=== PATIENT | female | born 1985 | race Caucasian/White ===

== ENCOUNTER 2023-05-18 16:57 | Emergency (ER) | payer OTHER, SELFPAY ==
[2023-05-18 17:04] VITALS: BP 142/90; PULSE 88; RESP 16; TEMP 37.3; O2SAT 96; BMI 52.1
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
[2023-05-18] MEDS: SILVER SULFADIAZINE 1% CREAM 25 GM TUBE 1 APPLIC TOPICAL (17:19)
== END 2023-05-18 17:48 | disposition home or self-care (01) ==
LOC: ER 17:32
PROVIDERS: Emergency Provider Emergency Medicine
DX: T23.152A Burn of first degree of left palm, initial encounter (principal); X12.XXXA Contact with other hot fluids, initial encounter
CPT/HCPCS: 99283

== ENCOUNTER 2023-12-02 10:24 | Outpatient (OUT) | payer OTHER, SELFPAY ==
[2023-12-02 10:52] LABS: Basophils Percent Auto 0.4 % (0.2-2.0); Eosinophils Absolute Auto 0.1 10^3/uL (0.0-0.7); Eosinophils Percent Auto 0.9 % (0.9-7.0); Hematocrit 38.6 % (36.0-48.0); Immature Granulocytes Abs Auto 0.03 10^3/uL (0.00-0.03); Immature Granulocytes Pct Auto 0.4 % (0.0-0.5); Lymphocytes Absolute Auto 2.2 10^3/uL (1.2-3.8); Lymphocytes Percent Auto 26.7 % (20.5-60.0); Mean Corpuscular HGB Conc 31.1 g/dL (29.9-35.2); Mean Corpuscular Hemoglobin 25.5 pg (26.7-34.0); Mean Platelet Volume 9.1 fL (9.5-13.5); Monocytes Absolute Auto 0.4 10^3/uL (0.3-0.8); Monocytes Percent Auto 4.6 % (1.7-12.0); Neutrophils Absolute Auto 5.5 10^3/uL (1.4-6.5); Platelet Count 336 10^3/uL (150-450); Red Blood Count 4.71 10^6/uL (4.20-5.40); Red Cell Distribution Width 14.5 % (11.0-15.0); White Blood Count 8.2 10^3/uL (4.0-11.0)
[2023-12-02 11:07] LABS: Estimated Average Glucose 108 mg/dL; Glycohemoglobin A1C 5.4 % (4.5-6.2)
[2023-12-02 11:07] LABS: Bilirubin Urine NEGATIVE (NEGATIVE); Blood Urine NEGATIVE (NEGATIVE); Clarity Urine CLEAR (CLEAR); Color Urine YELLOW (YELLOW); Glucose Urine UA NEGATIVE (NEGATIVE); Ketones Urine NEGATIVE (NEGATIVE); Leukocyte Esterase Urine SMALL (NEGATIVE); Nitrite Urine NEGATIVE (NEGATIVE); Protein Urine NEGATIVE (NEG/TRACE); Specific Gravity Urine 1.025 (1.005-1.025); Urobilinogen Urine 0.2 EU/dL (0.2-1.0)
[2023-12-02 11:29] LABS: Creatinine Urine Random 179.41 mg/dL (20.00-300.00); Microalbum Creatinine Ratio Ur 8.9 mg/g (0.0-29.9); Microalbumin Urine Random 1.6 mg/dL (<=30.0)
[2023-12-02 11:37] LABS: Alanine Aminotransferase 24 U/L (14-59); Albumin Globulin Ratio 0.9; Albumin Level 3.7 g/dL (3.4-5.0); Alkaline Phosphatase 74 U/L (46-116); Anion Gap 12.2; Aspartate Amino Transferase 15 U/L (15-37); BUN Creatinine Ratio 21.4; Bilirubin Total 0.4 mg/dL (0.2-1.0); Calcium 9.1 mg/dL (8.5-10.1); Carbon Dioxide 27.8 mmol/L (21.0-32.0); Chloride 103 mmol/L (98-107); Chol HDL Ratio 4.4; Cholesterol 209 mg/dL (<=200); Estimated GFR (African America >60 (>=60); Estimated GFR (Non-African Ame >60 (>=60); Globulin 4.1 g/dL; Glucose 133 mg/dL (74-106); HDL Cholesterol 48 mg/dL (40-60); Sodium 139 mmol/L (136-145); TSH W/ REFLEX FT4 3.775 uIU/mL (0.358-3.740); Total Protein 7.8 g/dL (6.4-8.2); Triglycerides 127 mg/dL (<=150); VLDL CHOLESTEROL 25.4 mg/dL
== END 2023-12-02 10:25 | disposition home or self-care (01) ==
PROVIDERS: PCP Nurse Practitioner Family; Visit Provider Nurse Practitioner Family
DX: E07.9 Disorder of thyroid, unspecified (principal); E11.9 Type 2 diabetes mellitus without complications; I10 Essential (primary) hypertension; E78.5 Hyperlipidemia, unspecified; R30.9 Painful micturition, unspecified
CPT/HCPCS: 36415; 80053; 80061; 81003; 82043; 82570; 83036; 84439; 84443; 85025

== ENCOUNTER 2023-12-27 13:47 | Outpatient (OUT) | payer OTHER, SELFPAY ==
--- OUTSIDE RECORDS SUMMARY | 2023-12-27 14:10 | XMS_ITS | CCD ---
Author Organization [facility] Care Team Providers Care Angiographer Name Role Phone Ingrid Culver Primary Care Provider [phone] INGRID CULVER Primary Care Unavailable KOLBY RAYMUNDO Attending Unavailable RHONDA, KOLBY Admitting Unavailable RHONDA, KOLBY Admitting Unavailable INGRID CULVER Primary Care Unavailable KOLBY RAYMUNDO Attending Unavailable RHONDA, KOLBY Admitting Unavailable KOLBY RAYMUNDO Attending Unavailable INGRID CULVER Primary Care Unavailable GEOVANNI CUEVAS Admitting Unavailable VIANCA BLANCHARD Consulting Unavailable DR DIONICIO BARBOUR Primary Care Unavailable GEOVANNI CUEVAS Attending Unavailable ANDREINA DHILLON Consulting Unavailable GEOVANNI CUEVAS Consulting Unavailable LUISA RANGEL Consulting Unavailable Palomo AMOS-Ingrid DIAS Primary Care Provider LAURENT BENITO Attending Unavailable LAURENT BENITO Attending Unavailable Claudio AMOS-CHRISTINE, Lizbeth Primary Care Provid er KATHERINE DOSS Attending Unavailable INGRID CULVER Referring LIZBETH Lopez Primary Care Unavailable Allergies Allergy Classification Reported Allergen(s) Allergy Type Date of Onset Reaction(s) Facility (6 sources) Loratadine; Translations: [LORATADINE] Drug Allergy 07-20-20 17 Palpitations [place], [place] (6 sources) methylPREDNISolone; Translations: [METHYLPREDNISOLONE] Drug Allergy 04-09-20 19 Hives [place], [place] (1 source) Loratadine Drug Allergy 03-20-20 17 [facility] (1 source) metFORMIN Drug Allergy 02-14-20 23 [facility] (1 source) methylPREDNISolone Drug Allergy [facility] (4 sources) oxyCODONE; Translations: [OXYCODONE] Drug Allergy 07-22-20 [facility] Medications Current Medications Medication Drug Class(es) Dates Sig (Normalized) Sig (Original) [id number] 200 actuat albuterol 0.09 mg/actuat metered dose inhaler (7 sources) beta2-Adrenergic Agonist Start: 11-11-2022 End: 10-13-2023 take 2 puff(s) by mouth every four to six hours as needed VENTOLIN HFA 90 mcg/actuation inhaler Indications: Moderate persistent asthma, unspecified whether complicated INHALE 2 PUFFS BY MOUTH EVERY 4-6 HOURS NEEDED 18 g 10 10/13/2023 Active take 2 puff(s) by in halation every six hours as needed for wheezing albuterol sulfate HFA (VENTOLIN HFA) 108 (90 Base) MCG/ACT inhaler Inhale 2 puffs into the lungs every 6 hours as needed for Wheezing 0 Active ARIPiprazole 10 mg oral tablet (3 sources) Atypical Antipsychotic Start: 05-19-2022 take 1 tablet by mouth in the morning ARIPiprazole (ABILIFY) 10 mg tablet Take 1 tablet (10 mg total) by mouth in the morning. 0 05/19/2022 Active atorvastatin 20 mg oral tablet (6 sources) HMG-CoA Reductase Inhibitor Start: 12-09-2022 atorvastatin (LIPITOR) 20 mg tablet take 1 tablet by mouth once carlos y atorvastatin (LIPITOR) 20 MG tablet Take 20 mg by mouth daily 0 Active 60 actuat budesonide 0.16 mg/actuat / formoterol fumarate 0.0045 mg/actuat metered dose inhaler (4 sources) Corticosteroid, beta2-Adrenergic Agonist Start: 12-10-2022 End: 11-11-2023 take 2 puff(s) by mouth twice daily SYMBICORT 160-4.5 mcg/actuation inhaler Indications: Moderate persistent asthma, unspecified whether complicated INHALE TWO (2) PUFFS BY MOUTH TWICE DAILY 10.2 g 10 11/11/2023 Active Budesonide-Formoter ol Fumarate (SYMBICORT IN) (3 sources) Budesonide-Formo te rol Fumarate (SYMBICORT IN) Inhale into the lungs as needed 0 Active busPIRone hydrochloride 15 mg oral tablet (6 sources) Start: 07-21-2021 busPIRone (BUSPAR) 15 mg tablet 4 (four) times a day. 0 07/21/2021 Active take 1 tablet by mouth twice celeste ly busPIRone (BUSPAR) 10 MG tablet Take 10 mg by mouth 2 times daily 0 Active calcium chloride 0.0014 meq/ ml / potassium chloride 0.004 meq/ml / sodium chloride 0.103 meq/ml / sodium lactate 0.028 meq/ml injectable solution (1 source) Start: 12-23-2020 lactated ringe rs infusion Start: 12-23-2020 lactated ringe rs infusion cephalexin 500 mg oral capsule (1 source) Cephalosporin Antibacterial Start: 12-22-2020 End: 12-27-2020 take 1 capsule by mouth three times daily cephALEXin (KEFLEX) 500 MG capsule Take 1 capsule by mouth 3 times daily for 5 days 15 capsule 0 12/22/2020 12/27/2020 Active cetirizine hydrochloride 10 mg oral tablet (6 sources) Histamine-1 Receptor Antagonist take 1 tablet by mouth once daily cetirizine (ZyrTEC) 10 mg tablet 1 tablet Orally Once a day for 30 day(s) 0 Active cholecalciferol 0.05 mg oral capsule (3 sources) Vitamin D Start: 12-03-2021 take 1 capsule by mouth in the morning VITAMIN D3 50 mcg (2,000 unit) capsule Take 1 capsule (2,000 Units total) by mouth in the morning. 0 12/03/2021 Active famotidine 20 mg oral tablet (3 sources) Histamine-2 Receptor Antagonist Start: 12-09-2022 famotidine (PEPCID) 20 mg tablet gabapentin 300 mg oral capsule (6 sources) Anti-epileptic Agent gabapentin (NEURONTI N) 300 mg capsule 1 capsule (300 mg total). 0 Active hydroCHLOROthiazide 12.5 mg oral capsule (6 sources) Thiazide Diuretic take 1 capsule by mouth once daily in the morning hydroCHLOROthiazide (MICROZIDE) 12.5 mg capsule 1 capsule in the morning Orally Once a day for 30 day(s) 0 Active hydrOXYzine pamoate 25 mg oral capsule (3 sources) Antihistamine Start: 07-21-2021 take 1 capsule by mouth three times daily as needed hydrOXYzine (VISTARIL) 25 mg capsule Take 1 capsule (25 mg total) by mouth 3 (three) times a day as needed. 0 07/21/2021 Active isopropyl alcohol 0.7 ml/ml medicated pad (3 sources) Start: 05-27-2020 EASY TOUCH ALCOHOL PREP PADS pads, medicated levothyroxine sodium 0.05 mg oral tablet (6 sources) l-Thyroxine take 1 tablet by mouth once daily in the morning levothyroxine (SYNTHROID, LEVOTHROID) 50 MCG tablet 1 tablet on an empty stomach in the morning Orally Once a day 0 Active 10 ml lidocaine hydrochloride 10 mg/ml injection (1 source) Antiarrhythmic, Amide Local Anesthetic Start: 12-23-2020 End: 12-23-2020 lidocaine PF 1 % injection 1 mL lisinopril 2.5 mg oral tablet (6 sources) Angiotensin Converting Enzyme Inhibitor take 1 tablet by mouth once daily lisinopriL (PRINIVIL,ZESTRIL) 2.5 mg tablet 1 tablet Orally Once a day for 30 day(s) 0 Active loperamide hydrochloride 2 mg oral capsule (3 sources) Opioid Agonist loperamide (IMOD IUM) 2 MG capsule Take 2 mg by mouth as needed for Diarrhea 0 Active metFORMIN hydrochloride 1000 mg oral tablet (1 source) Biguanide take 2 tablets by mouth once at mealtime metFORMIN (GLUCOPHAGE) 1000 MG tablet Indications: for type 2 diabetes per patient Take 1,000 mg by mouth 2 times daily (with meals) Indications: for type 2 diabetes per patient 0 Active 24 hr mirabegron 50 mg extended release oral tablet (3 sources) beta3-Adrenergic Agonist Start: 11-13-2021 take 1 tablet by mouth every twenty-four hours in the morning MYRBETRIQ 50 mg tablet extended release 24 hr Take 1 tablet (50 mg total) by mouth in the morning. 0 11/13/2021 Active montelukast 10 mg oral tablet (3 sources) Leukotriene Receptor Antagonist take 1 tablet by mouth once daily montelukast (SINGULAIR) 10 mg tablet Take 1 tablet (10 mg total) by mouth nightly. 0 Active omeprazole 40 mg delayed release oral capsule (6 sources) Proton Pump Inhibitor Start: 11-23-2022 take 1 capsule by mouth once daily omeprazole (PriLOSEC) 40 mg capsule Take 1 capsule (40 mg total) by mouth nightly. 0 11/23/2022 Active take 1 capsule by mouth once celeste ly omeprazole (PRILOSEC) 10 MG delayed release capsule Take 10 mg by mouth daily 0 Active 24 hr oxybutynin chloride 10 mg extended release oral tablet (3 sources) Cholinergic Muscarinic Antagonist take 1 tablet by mouth twice daily oxybutynin (DITROPAN-XL) 10 MG extended release tablet Take 10 mg by mouth 2 times daily 0 Active sertraline 100 mg oral tablet (6 sources) Serotonin Reuptake Inhibitor Start: take 1 tablet by mouth in the morning sertraline (ZOLOFT) 100 mg tablet Take 1 tablet (100 mg total) by mouth in the morning. 0 07/21/2021 Active take 1 tablet by mouth once carlos y sertraline (ZOLOFT) 50 MG tablet Take 50 mg by mouth daily 0 Active SITagliptin 100 mg oral tablet (1 source) Dipeptidyl Peptidase 4 Inhibitor Start: 09-21-2023 take 1 tablet by mouth in the morning JANUVIA 100 mg tablet Take 1 tablet (100 mg total) by mouth in the morning. 0 09/21/2023 Active traMADol hydrochloride 50 mg oral tablet (1 source) Opioid Agonist Start: 12-22-2020 End: 01-01-2021 take 1 tablet by mouth every six hours as needed for pain traMADol (ULTRAM) 50 MG tablet Indications: Post-op pain Take 1 tablet by mouth every 6 hours as needed for Pain for up to 10 days. 10 tablet 0 12/22/2020 01/01/2021 Active traZODone hydrochloride 50 mg oral tablet (1 source) Serotonin Reuptake Inhibitor take 1 tablet by mouth once daily traZODone (DESYREL) 50 mg tablet Take 1 tablet (50 mg total) by mouth nightly. 0 Active Completed/Discontinued Medications Medication Drug Class(es) Dates Sig (Normalized) Sig (Original) meloxicam (3 sources) Nonsteroidal Anti-inflammatory Drug End: 12-22-2020 Meloxicam (MOBIC PO) Take by mouth daily Patient does not know dose. 0 12/22/2020 Discontinued (LIST CLEANUP) Meloxicam (MOBIC PO) Take by mouth daily Patient does not know dose. 0 Active QUEtiapine 100 mg oral tablet (3 sources) Atypical Antipsychotic Start: 06-02-2020 End: 12-12-2023 take 1 tablet by mouth once daily, then take 0.5 tablet by mouth once daily QUEtiapine (SEROquel) 100 mg tablet nightly. Takes 1 and a 1/2 tablets by mouth Daily 0 06/02/2020 12/12/2023 Discontinued Problems Active Problems Problem Classification Problem Date Documented Date Episodic/Chronic Abdominal pain (4 sources) Unspecified abdominal pain; Translations: [UNSPECIFIED ABDOMINAL PAIN] Onset: 02-13-2023 Episodic Anxiety disorders (3 sources) Generalized anxiety disorder; Translations: [Generalized anxiety disorder] Onset: 07-29-2021 07-29-2021 Chronic Asthma (2 sources) Moderate persistent asthma; Translations: [Moderate persistent asthma, uncomplicated] 10-10-2023 Chronic Chronic ulcer of skin (3 sources) Non-pressure chronic ulcer of right heel and midfoot limited to breakdown of skin; Translations: [Ulcer of heel and midfoot] Onset: 07-29-2021 07-29-2021 Chronic Developmental disorders (3 sources) Developmental academic disorder; Translations: [Developmental disorder of scholastic skills, unspecified] Onset: 07-29-2021 07-29-2021 Chronic Diabetes mellitus without complication (3 sources) Type 2 diabetes mellitus; Translations: [Type 2 diabetes mellitus without complications] Onset: 05-03-2019 05-03-2019 Chronic E Codes: Fall (1 source) Unspecified fall, initial encounter; Translations: [UNSPECIFIED FALL INITIAL ENCOUNTER] Onset: 02-15-2023 Episodic Essential hypertension (3 sources) Hypertensive disorder; Translations: [Essential (primary) hypertension] Onset: 05-03-2019 05-03-2019 Chronic Menopausal disorders (1 source) Hormone replacement therapy; Translations: [HORMONE REPLACEMENT THERAPY] Onset: 02-15-2023 Episodic Miscellaneous mental health disorders (3 sources) Dissociative convulsions; Translations: [Conversion disorder with seizures or convulsions] Onset: 02-10-2022 02-10-2022 Chronic Mood disorders (3 sources) Recurrent major depressive episodes, moderate ; Translations: [Major depressive disorder, recurrent, moderate] Onset: 07-29-2021 07-29-2021 Chronic Other aftercare (1 source) Other terminal makeup operator (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; Translations: [OTH SHIFT COORDINATOR CURRENT DRUG THERAPY] Onset: 02-15-2023 Episodic Other lower respiratory disease (1 source) Pleurodynia; Translations: [PLEURODYNIA] Onset: 02-15-2023 Episodic Other nervous system disorders (1 source) Postoperative pain ; Translations: [Post-op pain] Episodic Other nutritional; endocrine; and metabolic disorders (3 sources) Severe obesity; Translations: [Morbid (severe) obesity due to excess calories] Onset: 05-03-2019 05-03-2019 Chronic Residual codes; unclassified (1 source) Obstructive sleep apnea syndrome; Translations: [Obstructive sleep apnea (adult) (pediatric)] 12-12-2023 Chronic Residual codes; unclassified (1 source) Sleep apnea Onset: 12-12-2023 Chronic Sprains and strains (1 source) Strain of muscle, fascia and tendon of lower back, initial encounter; Translations: [STRAIN MUSC FASC TENDON LW BACK INT] Onset: 02-15-2023 Episodic Past or Other Problems Problem Classification Problem Date Documented Da te Episodic/Chronic Mood disorders (3 sources) Mood disorders Onset: 09-11-2021 09-11-2021 Other lower respiratory disease (3 sources) Dyspnea; Translations: [Shortness of breath] Onset: 05-03-2019 05-03-2019 Episodic Unclassified (3 sources) Onset: 02-01-2023 02-01-2023 Results Test Name Value Interpretation Reference Range Facility CT ABD/PELVIS WO CONon 02-13 CT ABD/PELVIS WO CON CLINICAL HISTORY: M id to lower back pain, radiating into the right hip. Patient is status post fall 5 days ago. Posterior right-sided rib pain. EXAMINATION: Unenhanced CT scan of the abdomen and pelvis: 02/13/2023. COMPARISON: None. TECHNIQUE: 3 mm axial images from lung bases through ischial tuberosities without intravenous or oral contrast were obtained. Sagittal and coronal reconstructions were performed. CT dose reduction technique was used, including Automated Exposure Control. FINDINGS: The visualized lung bases seem normal. The heart size seems normal. CT ABDOMEN: For a noncontrast study the stomach seems slightly distended. The liver and spleen appear normal. The patient is status post cholecystectomy. Pancreas, adrenal glands, kidneys appear normal. There is no hydronephrosis or nephrolithiasis. The abdominal aorta has normal caliber. There is no retroperitoneal or mesenteric adenopathy. The bowel loops are of normal caliber with a normal-appearing appendix. CT PELVIS: There is a powerpack overlying the left lower abdomen at the level of L5-S1 with electrode extending to the right greater sciatic notch. There is an appropriately positioned intrauterine device in place. Uterus, ovaries, bladder appear normal. There is no pelvic adenopathy. There is no ureterolithiasis. Images on bone windows demonstrate there are no fractures of the hip joints or the visualized pelvic bones. The visualized lower thoracic and lumbar segments seen intact. No definite fractures of the visualized right or the left lower ribs are seen. IMPRESSION: 1. The study is slightly limited secondary to lack of intravenous contrast. 2. No definite injury to intra-abdominal or pelvic organs. 3. Prior cholecystectomy. 4. No nephro or ureterolithiasis. 5. Normal appendix. 6. No significant degenerative changes of the thoracolumbar spine which is visualized or fractures. The visualized lower ribs appear intact as well. Electronically authenticated by: ANDREINA DHILLON Date: 2023-02-13 21:36 Normal [facility] CT LSPINE WO CONon [address] [facility] CON CT LUMBAR SPINE WITH OUT CONTRAST, 02/13/2023 6:09 PM EDT INDICATION: Pain COMPARISON: None. TECHNIQUE: Thin-section axial CT images of the entire lumbar spine were acquired withoutcontrast. Supplemental 2D reformatted images were generated and reviewed as needed. Dose reduction techniques were achieved by using automated exposure control and/or adjustment of mA and/or kV according to patient size and/or use of iterative reconstruction technique. FINDINGS: PARASPINAL: Normal with no visible mass. BONES: No fracture, pars defect, or osseous lesion. OTHER: None. DISC LEVELS: T12-L1: No significant disc/facet abnormality, spinal stenosis, or foraminal stenosis. L1-L2: No significant disc/facet abnormality, spinal stenosis, or foraminal stenosis. L2-L3: No significant disc/facet abnormality, spinal stenosis, or foraminal stenosis. L3-L4: There is mild circumferential bulging of the L3-L4 disc. The central canal and neural foramina are satisfactorily maintained. Early facet arthropathy is seen bilaterally. L4-L5: There is mild circumferential bulging of the L4-L5 disc. The central canal and neural foramina are satisfactorily maintained. Early facet arthropathy is seen bilaterally. L5-S1: Posterior contour of the L5-S1 disc is normal. The central canal and neural foramina are satisfactorily maintained. Early facet arthropathy is seen bilaterally. IMPRESSION: Mild lower lumbar spondylosis. No evidence for acute fracture or traumatic malalignment. Electronically authenticated by: Kalli RANGEL Date: 2023-02-13 20:09 Normal [facility] XR RIBS RT PA Marco Antonio 3 XR RIBS RT PA CH EXAM: XR RIBS RT PA CH HISTORY: Pain COMPARISON: Chest x-ray 02/18/2020 TECHNIQUE: 5 view study FINDINGS: Right ribs show normal architecture. The right lung is well expanded. No pneumothorax. IMPRESSION: No evidence for acute right rib fracture. Electronically authenticated by: Kalli RANGEL Date: 2023-02-13 20:26 Normal [facility] [id number] 01-05-2021 SARS-CoV-2,Rapid Not Detected Normal [facility] Comment on above: Result Comment: Rapid NAAT: The specimen is NEGATIVE for SARS-CoV-2, the novel coronavirus associated with COVID-19. The ID NOW COVID-19 assay is designed to detect the virus that causes COVID-19 in patients with signs and symptoms of infection who are suspected of COVID-19. An individual without symptoms of COVID-19 and who is not shedding SARS-CoV-2 virus would expect to have a negative (not detected) result in this assay. Negative results should be treated as presumptive and, if inconsistent with clinical signs and symptoms or necessary for patient management, should be tested with an alternative molecular assay. Negative results do not preclude SARS-CoV-2 infection and should not be used as the sole basis for patient management decisions. Fact sheet for Healthcare Providers: https://www.fda.gov/media/992379/download Fact sheet for Patients: https://www.fda.gov/media/659243/download Methodology: Isothermal Nucleic Acid Amplification Performed By: #### C OVRB #### [facility] [place] [address] Piano Mover: Hussain Saldivar MD FLUORO FOR SURGICAL PROCEDUR ESon 12-22-2020 FLUORO FOR SURGICAL PROCEDURES Radiology exam is complete. No Radiologist dictation. Please follow up with ordering provider. Final result Normal [facility] Radiology exam is complete. No Radiologist dictation. Please follow up with ordering provider. [facility] Phone: HCG Screen, Bloodon 12-23-19 21 HCG Qn Negative Normal NEG [facility] Comment on above: Result Comment: Spec imens with hCG levels near the threshold of the test (25 mIU/mL) may give a negative or indeterminate result. In such cases, another test should be performed with a new specimen in 48-72 hours. If early is suspected clinically in this setting, correlation with quantitative serum b-hCG level is suggested. Performed By: #### H CG #### [facility] [address] [place] [address] Piano Mover: Darian Knutson MD HCG, SERUM, QUALITATIVEon hCG Qual Negative NEGATIVE [employer] Phone: Comment on above: Specimens with hCG l evels near the threshold of the test (25 mIU/mL) may give a negative or indeterminate result. In such cases, another test should be performed with a new specimen in 48-72 hours. If early is suspected clinically in this setting, correlation with quantitative serum b-hCG level is suggested. POC Glucose Fingerstickon Glucose [Mass/Vol] 89 mg/dL 65 - 105 mg/dL [facility] Phone: Glucose [Mass/Vol] 99 mg/dL 65 - 105 mg/dL [facility] Phone: Operative Reporton Operative Report MR#: [id number] S [facility] Pt. Name: Angela Hendrickson Room #: 0C Discharge Date: Birthdate: 1985 OPERATIVE REPORT DATE OF SURGERY: 10/09/2020 SURGEON: Tee Shahid M.D. PREOPERATIVE DIAGNOSIS: Triangular fibrocartilage complex tear, right wrist. POSTOPERATIVE DIAGNOSIS: Triangular fibrocartilage complex tear, right wrist. PROCEDURE: Arthroscopic examination and debridement of triangular fibrocartilage complex on the right wrist. PRODUCTION STAGE MANAGER: Oracio Ibanez M.D. ANESTHESIA: Regional with an axillary block. INDICATION FOR SURGERY: The patient is a 34-year-old female whom we saw in our [facility] with complaints of persisting ulnar sided wrist pain. This has been a problem despite nonoperative means of treatment. She is felt to be a candidate for surgical management at this point in time. She was brought to the operating room today for that purpose. The risks and benefits are explained prior to surgery and with good understanding, it is agreed to proceed. NARRATION: The patient was brought to the operating room and placed on the table in the supine position. An axillary block had been administered per the Anesthesia Service in the holding area. A tourniquet was placed around the proximal right arm. She was given preoperative antibiotics and the right upper extremity was prepped and draped out in a sterile fashion. To begin the procedure, after a standard time-out, the arm was exsanguinated with an Esmarch bandage and the tourniquet was inflated to 250 mmHg. The arm was suspended with finger trap traction on the long and ring fingers. About 10 pounds of traction was placed across the wrist joint. With a 25-gauge needle, we injected the radiocarpal joint with about 2 mL of normal saline solution. Once that was done, standard 3-4 and then later 4-5 portals were created. First, I just did a standard examination beginning over the radial styloid that looks normal. The scaphoid fossa looks fine. There was just a little bit of fibrillated tissue here and there, but nothing that looked terrible. The scapholunate ligament has a nice concavity and looks good. The lunate fossa was good. 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 A full radius shaver was inserted and I just debrided a little bit of the edge. I then took a biter and trimmed off the very thin portion in the center and with the shaver again debrided the edges until they were stable and smooth. I was able to get my probe in along the periphery. There was no peripheral tear. There was no instability at all of the cartilage and ligaments. Seeing that after we debrided that area, I went up into the midcarpal joint. Standard radial and ulnar midcarpal portals were created. We looked at the scapholunate ligament first with traction on the thumb. The ligament was stable and there was no motion at all. A small probe was inserted and the joint was perfectly stable. We then went over to the lunotriquetral joint and that also was stable. Seeing that, the arthroscopic equipment was removed. The portals were closed with interrupted 5-0 Novafil. A sterile dressing of Xeroform gauze, 4x4 fluffs, Kerlix, and an Renny bandage was applied. The arm had been removed from traction. The drapes were removed and the tourniquet was released. Her arm was placed into a sling because of the regional block. She was brought to the recovery area in stable condition, having tolerated the procedure well. Plan going forward. I believe that given her young age and the appearance of the TFCC with the ulnar head being visible, she was probably going to be a candidate for an ulnar shortening osteotomy. We will have to see how much relief she gets from the simple debridement. We will talk to her about options when we see her in the clinic for followup. Electronically Signed by: Tee Shahid M.D. 10/13/2020 10:06 A Tee Shahid M.D. Date Dict: 10/09/2020/10:44 A/Tee Shahid M.D. Date Trans: 10/09/2020 11:19 A/porter [id number] cc: Ingrid Culver C.N.P. [address] [facility] [address] Normal [facility] POC GLUCOSE LABon 10-09-2020 Glucose [Mass/Vol] 100 mg/dL Normal 70-[address] [facility] Comment on above: Performed By: #### [id number] #### [facility] [address] [place] [address], [facility] Glucose [Mass/Vol] 111 mg/dL High 70-[address] [facility] Comment on above: Performed By: #### [id number] #### [facility] [address] [facility]. 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 find the positives in a stressful situation rather than focusing on the negatives. ? Exercise. Physical exercise can release both physical and emotional tension. The patterson is to find a form of exercise that you enjoy and do it regularly. ? Relaxation techniques. These relax the body and mind. The patterson is to find one or more that you enjoy and use the technique(s) regularly. Examples include: ? Meditation, deep breathing, or progressive relaxation techniques. ? Yoga or rhys chi. ? Biofeedback, mindfulness techniques, or journaling. ? Listening to music, being out in nature, or participating in other hobbies. ? Practicing a healthy lifestyle. Eat a balanced diet, drink plenty of water, limit or avoid caffeine, and get plenty of sleep. ? Having a strong support network. Spend time with family, friends, or other people you enjoy being around. Express your feelings and talk things over with someone you trust. Counseling or talk therapy with a mental health professional may be helpful if you are having trouble managing stress on your own. Follow these instructions at home: Lifestyle ? Avoid drugs. ? Do not use any products that contain nicotine or tobacco, such as cigarettes and e-cigarettes. If you need help quitting, ask your health care provider. ? Limit alcohol intake to no more than 1 drink a day for non women and 2 drinks a day for men. One drink equals 12 oz of beer, 5 oz of wine, or 1? oz of hard liquor. ? Do not use alcohol or drugs to relax. ? Eat a balanced diet that includes fresh fruits and vegetables, whole grains, lean meats, fish, eggs, and beans, and low-fat dairy. Avoid processed foods and foods high in added fat, sugar, and salt. ? Exercise at least 30 minutes on 5 or more days each week. ? Get 7?8 hours of sleep each night. General instructions ? Practice stress management techniques as discussed with your health care provider. ? Drink enough fluid to keep your urine clear or pale yellow. ? Take haan-vgx-zhhcvgq and prescription medicines only as told by your health care provider. ? Keep all follow-up visits as told by your health care provider. This is important. Contact a health care provider if: ? Your symptoms get worse. ? You have new symptoms. ? You feel overwhelmed by your problems and can no longer manage them on your own. Get help right away if: ? You have thoughts of hurting yourself or others. If you ever feel like you may hurt yourself or others, or have thoughts about taking your own life, get help right away. You can go to your nearest emergency department or call: ? Your local emergency services (911 in the [place] ? A suicide crisis helpline, such as the National Suicide Prevention Lifeline at . This is open 24 hours a day. Summary ? Stress is a normal reaction to life events. It can cause problems if it happens too often or for too long. ? Practicing stress management techniques is the best way to treat stress. ? Counseling or talk therapy with a mental health professional may be helpful if you are having trouble managing stress on your own. This information is not intended to replace advice given to you by your health care provider. Make sure you discuss any questions you have with your health care provider. Document Released: 03/15/2002 Document Revised: 09/01/2018 Document Reviewed: 11/09/2017 [employer] Patient Education ? 2020 [employer]. Suicidal Feelings: How to Help Yourself Suicide is when you end your own life. There are many things you can do to help yourself feel better when struggling with these feelings. Many services and people are available to support you and others who struggle with similar feelings. If you ever feel like you may hurt yourself or others, or have thoughts about taking your own life, get help right away. To get help: ? Call your local emergency services (911 in the [place] ? The [facility] and human services helpline (211 in the [place] ? Go to your nearest emergency department. ? Call a suicide hotline to speak with a trained counselor. The following suicide hotlines are available in the [place]: ? 8-986-430-TALK ( ). ? 9-538-ZFILPYT ( ). ? . This is a hotline for Monegasque speakers. ? . This is a hotline for TTY users. ? 9-683-2-U-FRED ( ). This is a hotline for lesbian, clayton, bisexual, transgender, or questioning youth. ? For a list of hotlines in [place], visit www.suicide.org/hotline s/international/[place]- suicide-hotlines.html ? Contact a crisis center or a local suicide prevention center. To find a crisis center or suicide prevention center: ? Call your local hospital, clinic, community service organization, mental health center, social service provider, or health department. Ask for help with connecting to a crisis center. ? For a list of crisis centers in the [place], visit: suicidepreventionlifeli Airpush.org ? For a list of crisis centers in [place], visit: suicideprevention.ca How to help yourself feel better ? Promise yourself that you will not do anything extreme when you have suicidal feelings. Remember, there is hope. Many people have gotten through suicidal thoughts and feelings, and you can too. If you have had these feelings before, remind yourself that you can get through them again. ? Let family, friends, teachers, or counselors know how you are feeling. Try not to separate yourself from those who care about you and want to help you. Talk with someone every day, even if you do not feel sociable. Weqo-yx-ysdt conversation is best to help them understand your feelings. ? Contact a mental health care provider and work with this person regularly. ? Make a safety plan that you can follow during a crisis. Include phone numbers of suicide prevention hotlines, mental health professionals, and trusted friends and family members you can call during an emergency. Save these numbers on your phone. ? If you are thinking of taking a lot of medicine, give your medicine to someone who can give it to you as prescribed. If you are on antidepressants and are concerned you will overdose, tell your health care provider so that he or she can give you safer medicines. ? Try to stick to your routines. Follow a schedule every day. Make self-care a priority. ? Make a list of realistic goals, and cross them off when you achieve them. Accomplishments can give you a sense of worth. ? Wait until you are feeling better before doing things that you find difficult or unpleasant. ? Do things that you have always enjoyed to take your mind off your feelings. Try reading a book, or listening to or playing music. Spending time outside, in nature, may help you feel better. Follow these instructions at home: ? Visit your primary health care provider every year for a checkup. ? Work with a mental health care provider as needed. ? Eat a well-balanced diet, and eat regular meals. ? Get plenty of rest. ? Exercise if you are able. Just 30 minutes of exercise each day can help you feel better. ? Take vxzy-yae-rcxcbfe and prescription medicines only as told by your health care provider. Ask your mental health care provider about the possible side effects of any medicines you are taking. ? Do not use alcohol or drugs, and remove these substances from your home. ? Remove weapons, poisons, knives, and other deadly items from your home. General recommendations ? Keep your living space well lit. ? When you are feeling well, write yourself a letter with tips and support that you can read when you are not feeling well. ? Remember that life's difficulties can be sorted out with help. Conditions can be treated, and you can learn behaviors and ways of thinking that will help you. Where to find more information ? National Suicide Prevention Lifeline: www.suicidepreventionli feline.org ? Hopeline: www.hopeline.com ? [employer] for Suicide Prevention: www.afsp.org ? The Fred Project (for lesbian, clayton, bisexual, transgender, or questioning youth): www.thetrevorproject.or g Contact a health care provider if: ? You feel as though you are a burden to others. ? You feel agitated, angry, vengeful, or have extreme mood swings. ? You have withdrawn from family and friends. Get help right away if: ? You are talking about suicide or wishing to . ? You start making plans for how to commit suicide. ? You feel that you have no reason to live. ? You start making plans for putting your affairs in order, saying goodbye, or giving your possessions away. ? You feel guilt, shame, or unbearable pain, and it seems like there is no way out. ? You are frequently using drugs or alcohol. ? You are engaging in risky behaviors that could lead to . If you have any of these symptoms, get help right away. Call emergency services, go to your nearest emergency department or crisis center, or call a suicide crisis helpline. Summary ? Suicide is when you take your own life. ? Promise yourself that you will not do anything extreme when you have suicidal feelings. ? Let family, friends, teachers, or counselors know how you are feeling. ? Get help right away if you feel as though life is getting too tough to handle and you are thinking about suicide. This information is not intended to replace advice given to you by your health care provider. Make sure you discuss any questions you have with your health care provider. Document Released: 03/25/2004 Document Revised: 01/10/2020 Document Reviewed: 05/02/2018 [employer] Patient Education ? 2019 [employer] [facility] ED Patient Summaryon 020 ED Patient Summary [facility] - Emergency Department [address] [place] [address] PATIENT DISCHARGE INSTRUCTIONS Patient Information Name: ANGELA HENDRICKSON Age: 34 Years Date of : 1985 Reason For Visit: Suicidal ideation; SUICIDAL IDEATION Arrival Time: 07/26/2020 14:20:47 Primary Care Physician: Ingrid Culver NP Attending Physician: John Krishnamurthy MD Comment: Visit Diagnosis: Diagnoses This Visit Depression (F32.9) Suicidal ideation ([id number]) Suicidal ideations (R45.851) Prescription Information: If you have been given a prescription for narcotics, seek immediate medical attention if you have any difficulty breathing or any sudden status changes such as confusion and sleepiness. If you or anyone you know is experiencing suicidal thoughts, mental health, alcohol and/or drug addiction problems; contact the Mental Health & Recovery [facility] 25/04 Crisis Hotline -Text 4HQPH za 420582. If you received any narcotics, sedation, or any other medication that causes drowsiness for the next 24 hours, unless otherwise directed: ? Do not drive a car. ? Do not operate machinery such as power tools, lawn mowers, drills, sewing machines, or stoves ? Avoid alcoholic beverages and drugs for allergies, nerves, or sleep ? Do not make important personal or business decisions or sign any legal documents With: Address: When: Ingrid Culver [address], [address] [place] [address] Business (1) Within 3 to 5 days Comments: Please follow-up with your counselor in 3 to 5 days. Your counselor Zoie should be contacting you tomorrow as well as a Tuesday to check in on you and speak with you. Please keep your follow-up appointment with her for Tuesday of next week. You spoke with Sarah from [facility], at this time, we agree to safety plan with your friend Melisa. If at anytime you become suicidal homicidal or have any other worsening or concerning symptoms you are to return here to the emergency department at that time you would be admitted to the hospital. Continue to monitor your symptoms and return for any suicidal or homicidal ideation or any other worsening or concerning symptoms. Medication Information: The exam and treatment you received today in the [facility] Emergency Department were for an urgent problem and are not intended as complete care. It is important for you to follow up with a doctor, nurse practitioner, or physician?s assistant professor of surgery for ongoing care. If your symptoms become worse or you do not improve as expected and you are unable to reach your usual health care provider, you should return to the Emergency Department, we are available 24 hours a day. For those patients who have received Radiology results, the interpretation of your X-ray as given to you by our Emergency Department physician is only a preliminary report. The Radiologist will review your films and if there is a change in the diagnosis you will be notified by phone. Please make sure you have provided a working phone number so we can reach you if necessary. In the event that you had a lab culture while you were a patient in the Emergency Department, you will be notified by phone if there is a need to change your antibiotic. Please make sure you have provided a working phone number so we can reach you if necessary. [facility] Emergency Department has provided you with a complete list of medications post discharge. Please inform your architectural drafter/provider of your visit and for further instruction on these medications. Any specific questions regarding your chronic medications and dosages should be discussed with your primary care physician(s) and/or pharmacist. Medications That Were Updated - Follow Below Instructions Other Medications Updated: busPIRone (busPIRone 10 mg oral tablet) verify with patient. Updated: diclofenac (diclofenac sodium 75 mg oral delayed release tablet) VERIFY DIRECTIONS WITH PATIENT. Updated: hydroCHLOROthiazide (hydroCHLOROthiazide 25 mg oral tablet) VERIFY DIRECTIONS WITH PATIENT. Updated: levothyroxine (levothyroxine 50 mcg (0.05 mg) oral tablet) VERIFY DIRECTIONS WITH PATIENT. Updated: lisinopril (lisinopril 2.5 mg oral tablet) VERIFY DIRECTIONS WITH PATIENT. Updated: QUEtiapine (QUEtiapine 100 mg oral tablet) VERIFY DIRECTIONS WITH PATIENT. Updated: sertraline (sertraline 100 mg oral tablet) VERIFY DIRECTIONS WITH PATIENT. Medications to Continue That Have Not Changed Other Medications albuterol (albuterol 0.083% inh solution) 2.5 Milligram Nebulized inhalation every 6 hours. albuterol (albuterol CFC free 90 mcg/inh inhalation aerosol) Inhalation 4 times a day. cetirizine (ZyrTEC 10 mg oral tablet) 1 tab(s) Oral every day. ibuprofen (ibuprofen 800 mg oral tablet) VERIFY DIRECTIONS WITH PATIENT. loperamide (Imodium A-D) 2 Milligram Oral every 4 hours. meloxicam (Mobic 15 mg oral tablet) 1 tab(s) Oral every day. metFORMIN (metFORMIN 500 mg oral tablet) 1 tab(s) PO BID. montelukast (Singulair 10 mg oral tablet) 1 tab(s) Oral every day. omeprazole (omeprazole 20 mg oral delayed release capsule) oxybutynin (oxybutynin 10 mg/24 hr oral tablet, extended release) Visit Information Allergies: Substance Reaction Symptoms Type Comments Claritin Tachycardia Drug methylPREDNISolone Hives Drug Vital Signs: Vitals and Measurements this Visit (last charted value for your 07/26/2020 visit) Vital Signs This Visit Temperature Oral: 36.7 DegC Systolic Blood Pressure: 138 mmHg Diastolic Blood Pressure: 88 mmHg SpO2: 97 % Oxygen Therapy: Room air Measurements This Visit Height/Length Dosin.800 cm Height/Length Estimated: 149.800 cm Weight Dosin.400 kg Weight Estimated: 122.400 kg Problems List: Problem Onset Comments Asthma Hypothyroid Patient Education Stress Stress is a normal reaction to life events. Stress is what you feel when life demands more than you are used to, or more than you think you can handle. Some stress can be useful, such as studying for a test or meeting a deadline at work. Stress that occurs too often or for too long can cause problems. It can affect your emotional health and interfere with relationships and normal daily activities. Too much stress can weaken your body's defense system (immune system) and increase your risk for physical illness. If you already have a medical problem, stress can make it worse. What are the causes? All sorts of life events can cause stress. An event that causes stress for one person may not be stressful for another person. Major life events, whether positive or negative, commonly cause stress. Examples include: ? Losing a job or starting a new job. ? Losing a loved one. ? Moving to a new town or home. ? Getting or . ? Having a baby. ? Injury or illness. Less obvious life events can also cause stress, especially if they occur day after day or in combination with each other. Examples include: ? Working long hours. ? Driving in traffic. ? Caring for children. ? Being in debt. ? Being in a difficult relationship. What are the signs or symptoms? Stress can cause emotional symptoms, including: ? Anxiety. This is feeling worried, afraid, on edge, overwhelmed, or out of control. ? Anger, including irritation or impatience. ? Depression. This is feeling sad, down, helpless, or guilty. ? Trouble focusing, remembering, or making decisions. Stress can cause physical symptoms, including: ? Aches and pains. These may affect your head, neck, back, stomach, or other areas of your body. ? Tight muscles or a clenched jaw. ? Low energy. ? Trouble sleeping. Stress can cause unhealthy behaviors, including: ? Eating to feel better (overeating) or skipping meals. ? Working too much or putting off tasks. ? Smoking, drinking alcohol, or using drugs to feel better. How is this diagnosed? Stress is diagnosed through an assessment by your health care provider. He or she may diagnose this condition based on: ? Your symptoms and any stressful life events. ? Your medical history. ? Tests to rule out other causes of your symptoms. Depending on your condition, your health care provider may refer you to a specialist for further evaluation. How is this treated? Stress management techniques are the recommended treatment for stress. Medicine is not typically recommended for the treatment of stress. Techniques to reduce your reaction to stressful life events include: ? Stress identification. Monitor yourself for symptoms of stress and identify what causes stress for you. These skills may help you to avoid or prepare for stressful events. ? Time management. Set your priorities, keep a calendar of events, and learn to say ?no.? Taking these actions can help you avoid making too many commitments. Techniques for coping with stress include: ? Rethinking the problem. Try to think realistically about stressful events rather than ignoring them or overreacting. Try to find the positives in a stressful situation rather than focusing on the negatives. ? Exercise. Physical exercise can release both physical and emotional tension. The patterson is to find a form of exercise that you enjoy and do it regularly. ? Relaxation techniques. These relax the body and mind. The patetrson is to find one or more that you enjoy and use the technique(s) regularly. Examples include: ? Meditation, deep breathing, or progressive relaxation techniques. ? Yoga or rhys chi. ? Biofeedback, mindfulness techniques, or journaling. ? Listening to music, being out in nature, or participating in other hobbies. ? Practicing a healthy lifestyle. Eat a balanced diet, drink plenty of water, limit or avoid caffeine, and get plenty of sleep. ? Having a strong support network. Spend time with family, friends, or other people you enjoy being around. Express your feelings and talk things over with someone you trust. Counseling or talk therapy with a mental health professional may be helpful if you are having trouble managing stress on your own. Follow these instructions at home: Lifestyle ? Avoid drugs. ? Do not use any products that contain nicotine or tobacco, such as cigarettes and e-cigarettes. If you need help quitting, ask your health care provider. ? Limit alcohol intake to no more than 1 drink a day for non women and 2 drinks a day for men. One drink equals 12 oz of beer, 5 oz of wine, or 1? oz of hard liquor. ? Do not use alcohol or drugs to relax. ? Eat a balanced diet that includes fresh fruits and vegetables, whole grains, lean meats, fish, eggs, and beans, and low-fat dairy. Avoid processed foods and foods high in added fat, sugar, and salt. ? Exercise at least 30 minutes on 5 or more days each week. ? Get 7?8 hours of sleep each night. General instructions ? Practice stress management techniques as discussed with your health care provider. ? Drink enough fluid to keep your urine clear or pale yellow. ? Take lgnk-pif-eiettxc and prescription medicines only as told by your health care provider. ? Keep all follow-up visits as told by your health care provider. This is important. Contact a health care provider if: ? Your symptoms get worse. ? You have new symptoms. ? You feel overwhelmed by your problems and can no longer manage them on your own. Get help right away if: ? You have thoughts of hurting yourself or others. If you ever feel like you may hurt yourself or others, or have thoughts about taking your own life, get help right away. You can go to your nearest emergency department or call: ? Your local emergency services (911 in the [place] ? A suicide crisis helpline, such as the National Suicide Prevention Lifeline at . This is open 24 hours a day. Summary ? Stress is a normal reaction to life events. It can cause problems if it happens too often or for too long. ? Practicing stress management techniques is the best way to treat stress. ? Counseling or talk therapy with a mental health professional may be helpful if you are having trouble managing stress on your own. This information is not intended to replace advice given to you by your health care provider. Make sure you discuss any questions you have with your health care provider. Document Released: 03/15/2002 Document Revised: 09/01/2018 Document Reviewed: 11/09/2017 [employer] Patient Education ? 2019 [employer] Suicidal Feelings: How to Help Yourself Suicide is when you end your own life. There are many things you can do to help yourself feel better when struggling with these feelings. Many services and people are available to support you and others who struggle with similar feelings. If you ever feel like you may hurt yourself or others, or have thoughts about taking your own life, get help right away. To get help: ? Call your local emergency services (911 in the [place] ? The [facility] helpline (211 in the [place] ? Go to your nearest emergency department. ? Call a suicide hotline to speak with a trained counselor. The following suicide hotlines are available in the [place]: ? 3-595-131-TALK ( ). ? 6-714-CWXMKIQ ( ). ? . This is a hotline for Monegasque speakers. ? . This is a hotline for TTY users. ? 1-730-7-U-FRED ( ). This is a hotline for lesbian, clayton, bisexual, transgender, or questioning youth. ? For a list of hotlines in [place], visit www.suicide.org/hotline s/international/[place]- suicide-hotlines.html ? Contact a crisis center or a local suicide prevention center. To find a crisis center or suicide prevention center: ? Call your local hospital, clinic, community service organization, mental health center, social service provider, or health department. Ask for help with connecting to a crisis center. ? For a list of crisis centers in the [place], visit: suicidepreventionlifeli ne.org ? For a list of crisis centers in [place], visit: suicideprevention.ny How to help yourself feel better ? Promise yourself that you will not do anything extreme when you have suicidal feelings. Remember, there is hope. Many people have gotten through suicidal thoughts and feelings, and you can too. If you have had these feelings before, remind yourself that you can get through them again. ? Let family, friends, teachers, or counselors know how you are feeling. Try not to separate yourself from those who care about you and want to help you. Talk with someone every day, even if you do not feel sociable. Rggp-lz-jwqc conversation is best to help them understand your feelings. ? Contact a mental health care provider and work with this person regularly. ? Make a safety plan that you can follow during a crisis. Include phone numbers of suicide prevention hotlines, mental health professionals, and trusted friends and family members you can call during an emergency. Save these numbers on your phone. ? If you are thinking of taking a lot of medicine, give your medicine to someone who can give it to you as prescribed. If you are on antidepressants and are concerned you will overdose, tell your health care provider so that he or she can give you safer medicines. ? Try to stick to your routines. Follow a schedule every day. Make self-care a priority. ? Make a list of realistic goals, and cross them off when you achieve them. Accomplishments can give you a sense of worth. ? Wait until you are feeling better before doing things that you find difficult or unpleasant. ? Do things that you have always enjoyed to take your mind off your feelings. Try reading a book, or listening to or playing music. Spending time outside, in nature, may help you feel better. Follow these instructions at home: ? Visit your primary health care provider every year for a checkup. ? Work with a mental health care provider as needed. ? Eat a well-balanced diet, and eat regular meals. ? Get plenty of rest. ? Exercise if you are able. Just 30 minutes of exercise each day can help you feel better. ? Take ekzb-bot-rqsyfcc and prescription medicines only as told by your health care provider. Ask your mental health care provider about the possible side effects of any medicines you are taking. ? Do not use alcohol or drugs, and remove these substances from your home. ? Remove weapons, poisons, knives, and other deadly items from your home. General recommendations ? Keep your living space well lit. ? When you are feeling well, write yourself a letter with tips and support that you can read when you are not feeling well. ? Remember that life's difficulties can be sorted out with help. Conditions can be treated, and you can learn behaviors and ways of thinking that will help you. Where to find more information ? National Suicide Prevention Lifeline: www.suicidepreventionli feline.org ? Hopeline: www.hopeline.com ? [employer] Foundation for Suicide Prevention: www.afsp.org ? The Fred Project (for lesbian, clayton, bisexual, transgender, or questioning youth): www.theUDeserve Technologiesvorproject.or g Contact a health care provider if: ? You feel as though you are a burden to others. ? You feel agitated, angry, vengeful, or have extreme mood swings. ? You have withdrawn from family and friends. Get help right away if: ? You are talking about suicide or wishing to . ? You start making plans for how to commit suicide. ? You feel that you have no reason to live. ? You start making plans for putting your affairs in order, saying goodbye, or giving your possessions away. ? You feel guilt, shame, or unbearable pain, and it seems like there is no way out. ? You are frequently using drugs or alcohol. ? You are engaging in risky behaviors that could lead to . If you have any of these symptoms, get help right away. Call emergency services, go to your nearest emergency department or crisis center, or call a suicide crisis helpline. Summary ? Suicide is when you take your own life. ? Promise yourself that you will not do anything extreme when you have suicidal feelings. ? Let family, friends, teachers, or counselors know how you are feeling. ? Get help right away if you feel as though life is getting too tough to handle and you are thinking about suicide. This information is not intended to replace advice given to you by your health care provider. Make sure you discuss any questions you have with your health care provider. Document Released: 03/25/2004 Document Revised: 01/10/2020 Document Reviewed: 05/02/2018 [employer] Patient Education ? 2019 [employer]. Viruses or Bacteria What?s got you sick? Antibiotics only treat bacterial infections. Viral illnesses cannot be treated with antibiotics. When an antibiotic is not prescribed, ask your healthcare professional for tips on how to relieve symptoms and feel better. Usual Cause Illness Viruses Bacteria Antibiotic Needed Cold/Runny Nose NO Bronchitis/Chest Cold (in otherwise healthy children and adults) NO Whooping Cough Yes Flu NO Strep Throat Yes Sore Throat (except strep) NO Fluid in the middle ear (otitis media with effusion) NO Urinary Tract Infection Yes Antibiotics Aren?t Always the Answer www.cdc.gov/getsmart GET SMART Know When Antibiotics Work [place] Department of Health and Human Services Centers for Disease Control and Prevention June [address] [facility] Ethanol.on 07-26-2020 Ethanol Level <5.0 Normal 0.0-5.[address] [facility] Comment on above: Performed By: #### 2 [id number] ####[facility] (DEFAULT)[address] [place] [address] Extra Redon 07-26-2020 Tube Collected Yes [facility] Comment on above: Performed By: #### 7 [id number], [id number], [id number], [id number] #### [facility] (DEFAULT) [address] [place] [address] Pharmacy Noteon 07-26-2020 Pharmacy Note I have personally reviewed the patient's current home medication list including, prescription medications, OTC products, vitamins and supplements. Home Medications (19) Active albuterol 0.083% inh solution 2.5 mg, NEB, q6hr (int) albuterol CFC free 90 mcg/inh inhalation aerosol , INH, QID busPIRone 7.5 mg oral tablet 7.5 mg = 1 tab(s), PO, BID diclofenac 75 mg, PO gabapentin 300 mg oral capsule 300 mg = 1 cap(s), PO, TID hydroCHLOROthiazide 12.5 mg, PO, Daily hydrOXYzine 25 mg Imodium A-D 2 mg, PO, q4hr (int) Lipitor 20 mg oral tablet 20 mg = 1 tab(s), PO, Daily lisinopril 20 mg oral tablet 20 mg = 1 tab(s), PO, Daily medroxyPROGESTERone 400 mg/mL intramuscular suspension 400 mg = 1 mL, IM, qWeek Mobic 15 mg oral tablet 15 mg = 1 tab(s), PO, Daily QUEtiapine 200 mg oral tablet 200 mg = 1 tab(s), PO, BID sertraline , PO, Daily Singulair 10 mg oral tablet 10 mg = 1 tab(s), PO, Daily Symbicort 160 mcg-4.5 mcg/inh 2 puff(s), INH, BID Synthroid 50 mcg, PO, Daily Zantac 150 150 mg, PO, BID ZyrTEC 10 mg oral tablet 10 mg = 1 tab(s), PO, Daily Status of Medication History: Incomplete Source of Information: Pharmacy Records Changes Made: - Medications Added to List: BUSPIRONE 10MG - VERIFY DIRECTIONS WITH PATIENT DICLOFENAC 75MG SOD DR - VERIFY DIRECTIONS WITH PATIENT HYDROCHLOROTHIAZIDE 25MG - VERIFY DIRECTIONS WITH PATIENT LEVOTHYROXINE 50MG - VERIFY DIRECTIONS WITH PATIENT LISINOPRIL 2.5MG - VERIFY DIRECTIONS WITH PATIENT QUETIAPINE 100MG - VERIFY DIRECTIONS WITH PATIENT SERTRALINE 100MG - VERIFY DIRECTIONS WITH PATIENT METFORMIN 500MG - VERIFY DIRECTIONS WITH PATIENT OMEPRAZOLE 20MG - VERIFY DIRECTIONS WITH PATIENT IBUPROFEN 800MG - VERIFY DIRECTIONS WITH PATIENT OXYBUTYNIN ER 10MG - VERIFY DIRECTIONS WITH PATIENT - Medications Modified: NONE - Medications Removed from List: state reason (i.e. no longer taking, strength change, etc) ATORVASTATIN 20MG - HAS NOT BEEN FILLED SINCE 01/28/20 SYMBICORT 160MCG-4.5 - HAS NOT BEEN FILLED SINCE 01/28/20 BUSPIRONE 7.5 - THE 10MG WAS LAST FILLED IN EXTERNAL HISTORY DICLOFENAC - DID NOT HAVE THE STRENGTH ADDED GABAPENTIN 300MG - HAS NOT BEEN FILLED SINCE 02/02/20 HYDROCHLOROTHIAZIDE - DID NOT HAVE THE STRENGTH HYDROXYZINE - NO DOCUMENTATION IN THE EXTERNAL HISTORY LEVOTHYROXINE - DID NOT HAVE THE STRENGTH LISINOPRIL 20MG - THE 2.5MG WAS LAST FILLED IN THE EXTERNAL HISTORY MEDROXYPROGESTERONE 400MG/ML - NO DOCUMENTATION IN THE EXTERNAL HISTORY QUETIAPINE 200MG - THE 100MG WAS LAST FILLED IN THE EXTERNAL HISTORY RANITIDINE 150- NO DOCUMENTATION IN THE EXTERNAL HISTORY SERTRALINE - DID NOT HAVE THE STRENGTH Other Comments: ALL INFORMATION FOUND ON THE EXTERNAL HISTORY [Electronically Signed on: 07/26/2020 16:05 EDT] Brianna Hamilton [Verified on: 07/26/2020 16:05 EDT] Brianna Hamilton [facility] Respiratory Panel 2.1 (BioFi re)on 07-26-2020 Adenovirus -BioFire Not Detected Normal Not Detected [facility] Comment on above: Order Comment: Pt keesha bran at [facility] home, required for psych admission Performed By: #### 6 [id number], [id number] ####[facility] (DEFAULT)[address] [place] [address] 18004 Bordetella parapertussis -BioFire Not Detected Normal Not Detected [facility] Comment on above: Order Comment: Pt li ves at [facility] a [facility], required for psych admission Performed By: #### 6 [id number], [id number] ####[facility] (DEFAULT)[address] [place] [address] 23906 Bordetella pertussis -BioFire Not Detected Normal Not Detected [facility] Comment on above: Order Comment: Pt li ves at [facility] a [facility], required for psych admission Performed By: #### 6 [id number], [id number] ####[facility] (DEFAULT)[address] [place] [address] 80565 Chlamydia pneumoniae -BioFire Not Detected Normal Not Detected [facility] Comment on above: Order Comment: Pt li ves at [facility] a [facility], required for psych admission Performed By: #### 6 [id number], [id number] ####[facility] (DEFAULT)[address] [place] [address] 43583 Coronavirus 229E (Not COVID-19) -BioFire Not Detected Normal Not Detected [facility] Comment on above: Order Comment: Pt li ves at [facility], [facility], required for psych admission Performed By: #### 6 [id number], [id number] ####[facility] (DEFAULT)[address] [place] [address] 21807 Coronavirus HKU1 (Not COVID-19) -BioFire Not Detected Normal Not Detected [facility] Comment on above: Order Comment: Pt li ves at [facility], required for psych admission Performed By: #### 6 [id number], [id number] ####[facility] (DEFAULT)[address] [place] [address] 64669 Coronavirus NL63 (Not COVID-19) -BioFire Not Detected Normal Not Detected [facility] Comment on above: Order Comment: Pt li ves at [facility], required for psych admission Performed By: #### 6 [id number], [id number] ####[facility] (DEFAULT)[address] [place] [address] 77351 Coronavirus OC43 (Not COVID-19) -BioFire Not Detected Normal Not Detected [facility] Comment on above: Order Comment: Pt li ves at [facility], required for psych admission Performed By: #### 6 [id number], [id number] ####[facility] (DEFAULT)[address] [place] [address]25 Employed in healthcare? No [facility] Comment on above: Order Comment: Pt li ves at [facility] a [facility], required for psych admission Performed By: #### 6 [id number], [id number] ####[facility] (DEFAULT)[address] [place] [address] 24553 Group care resident? Yes [facility] Comment on above: Order Comment: Pt li ves at [facility], required for psych admission Performed By: #### 6 [id number], [id number] ####[facility] (DEFAULT)[address] [place] [address] 88748 Hospitalized due to COVID-19? No [facility] Comment on above: Order Comment: Pt li ves at [facility] a [facility], required for psych admission Performed By: #### 6 [id number], [id number] ####[facility] (DEFAULT)[address] [place] [address] 60957 Human Metapneumovirus -BioFire Not Detected Normal Not Detected [facility] Comment on above: Order Comment: Pt li ves at [facility] a [facility], required for psych admission Performed By: #### 6 [id number], [id number] ####[facility] (DEFAULT)[address] [place] [address] 81001 Human Rhinovirus/Enterovir us -BioFire Not Detected Normal Not Detected [facility] Comment on above: Order Comment: Pt li ves at [facility] a [facility], required for psych admission Performed By: #### 6 [id number], [id number] ####[facility] (DEFAULT)[address] [place] [address] 36977 In ICU? No [facility] Comment on above: Order Comment: Pt li ves at [facility] a [facility], required for psych admission Performed By: #### 6 [id number], [id number] ####[facility] (DEFAULT)[address] [place] [address] 18351 Influenza A (no subtype) -BioFire Not Detected Normal Not Detected [facility] Comment on above: Order Comment: Pt li ves at [facility], required for psych admission Performed By: #### 6 [id number], [id number] ####[facility] (DEFAULT)[address] [place] [address] 33157 Influenza A -BioFire Not Detected Normal Not Detected [facility] Comment on above: Order Comment: Pt li ves at [facility], required for psych admission Performed By: #### 6 [id number], [id number] ####[facility] (DEFAULT)[address] [place] [address] 63137 Influenza A H1 -BioFire Not Detected Normal Not Detected [facility] Comment on above: Order Comment: Pt li ves at [facility], required for psych admission Performed By: #### 6 [id number], [id number] ####[facility] (DEFAULT)[address] [place] [address] 88803 Influenza A H1-2009 -BioFire Not Detected Normal Not Detected [facility] Comment on above: Order Comment: Pt li ves at [facility], required for psych admission Performed By: #### 6 [id number], [id number] ####[facility] (DEFAULT)[address] [place] [address] 32416 Influenza A H3 -BioFire Not Detected Normal Not Detected [facility] Comment on above: Order Comment: Pt li ves at [facility], required for psych admission Performed By: #### 6 [id number], [id number] ####[facility] (DEFAULT)[address] [place] [address] 18016 Influenza B -BioFire Not Detected Normal Not Detected [facility] Comment on above: Order Comment: Pt li ves at [facility], required for psych admission Performed By: #### 6 [id number], [id number] ####[facility] (DEFAULT)[address] [place] [address] 70663 Mycoplasma pneumoniae -BioFire Not Detected Normal Not Detected [facility] Comment on above: Order Comment: Pt li ves at [facility], required for psych admission Performed By: #### 6 [id number], [id number] ####[facility] (DEFAULT)[address] [place] [address] 83989 Parainfluenza Virus 1 -BioFire Not Detected Normal Not Detected [facility] Comment on above: Order Comment: Pt li ves at [facility], required for psych admission Performed By: #### 6 [id number], [id number] ####[facility] (DEFAULT)[address] [place] [address] 26141 Parainfluenza Virus 2 -BioFire Not Detected Normal Not Detected [facility] Comment on above: Order Comment: Pt li ves at [facility], required for psych admission Performed By: #### 6 [id number], [id number] ####[facility] (DEFAULT)[address] [place] [address] 86024 Parainfluenza Virus 3 -BioFire Not Detected Normal Not Detected [facility] Comment on above: Order Comment: Pt li ves at [facility], required for psych admission Performed By: #### 6 [id number], [id number] ####[facility] (DEFAULT)[address] [place] [address] 85110 Parainfluenza Virus 4 -BioFire Not Detected Normal Not Detected [facility] Comment on above: Order Comment: Pt li ves at [facility], required for psych admission Performed By: #### 6 [id number], [id number] ####[facility] (DEFAULT)[address] [place] [address] status? Not [facility] Comment on above: Order Comment: Pt li ves at [facility], required for psych admission Performed By: #### 6 [id number], [id number] ####[facility] (DEFAULT)[address] [place] [address] Respiratory Syncytial Virus -BioFire Not Detected Normal Not Detected [facility] Comment on above: Order Comment: Pt li ves at [facility], required for psych admission Performed By: #### 6 [id number], [id number] ####[facility] (DEFAULT)[address] [place] [address] SARS-CoV-2 (COVID-19) -BioFire Not Detected Normal Not Detected [facility] Comment on above: Order Comment: Pt li ves at [facility], required for psych admission Performed By: #### 6 [id number], [id number] ####[facility] (DEFAULT)[address] [place] [address] Symptomatic as defined by CDC? No [facility] Comment on above: Order Comment: Pt li ves at [facility], required for psych admission Performed By: #### 6 [id number], [id number] ####[facility] (DEFAULT)[address] [place] [address] Salicylateon 07-26-2020 Salicylate Lvl <4.0 Normal 0.0-30.[address] [facility] Comment on above: Result Comment: Sali cylate ranges less than 30 mg/dL are considered to be therapeutic. Levels greater than 30 mg/dL are considered toxic and levels greater than 60 mg/dL may be lethal. Performed By: #### 7 [id number], [id number], [id number], [id number], [id number], [id number], [id number] ####[facility] (DEFAULT)[address] [place] [address] 03357 Thyroid Panel 4on 07-26-2020 T3 Uptake. 48 % Normal 32-[address] [facility] Comment on above: Performed By: #### 7 [id number], [id number], [id number], [id number], [id number] ####[facility] (DEFAULT)[address] [place] [address] 07762 T4 [Mass/Vol] 9.41 ug/dL Normal 6.09-12.[address] [facility] Comment on above: Performed By: #### 7 [id number], [id number], [id number], [id number], [id number], [id number], [id number], [id number] ####[facility] (DEFAULT)[address] [place] [address] 02921 T7 4.52 Normal 1.94-5.[address] [facility] Comment on above: Performed By: #### 7 [id number], [id number], [id number], [id number], [id number], [id number], [id number], [id number] ####[facility] (DEFAULT)[address] [place] [address] 03534 TSH Qn 1.49 mcIU/mL Normal 0.45-5.[address] [facility] Comment on above: Result Comment: Gene ral Population (males and non- females, aged 21-88) 0.45 - 5.33 Females, 1st Trimester 0.05 - 3.70 Females, 2nd Trimester 0.31 - 4.35 Females, 3rd Trimester 0.41 - 5.18 Performed By: #### 7 [id number], [id number], [id number], [id number], [id number], [id number], [id number] ####[facility] (DEFAULT)[address] [place] [address] 29103 Coding Summary.on 07-07-2020 Coding Summary. CODING DATE: 020 [facility] STATUS: Home (Routine DC) PAYOR: Medicaid EAPG DESCRIPTION 0293 MRI- JOINTS 0490 INCIDENTAL TO MEDICAL, SIGNIFICANT PROCEDURE OR THERAPY VISIT ADMIT DX: REASON FOR VISIT DX: S69.81XA Other specified injuries of right wrist, hand and finger(s), initial encounter FINAL DX: PRINCIPAL: S69.81XA Other specified injuries of right wrist, hand and finger(s), initial encounter SECONDARY: W19.XXXD Unspecified fall, subsequent encounter PYMT PROC EAPG STAT DESCRIPTION DOCTOR NAME DATE NOTE: The code number assigned matches the documented diagnosis and / or procedure in the patient's chart. However, the narrative phrase printed from the coding software may appear abbreviated, or result in slightly different terminology. Coded By: Savanna Radford CphT Date Saved: 07/07/2020 02:39 pm Normal [facility] Consent for Treatmenton Consent for Treatment [id number] D:127 Normal [facility] MRI Wrist Arthrogram Righton 07-04-2020 MRI Wrist Arthrogram Right Exam Date/Time: 07/04/2020 11:16 EDT Reason for Exam: S69.81XA Other specified injuries of right wrist, hand and finger(s), Report IMPRESSION: TFCC tear (Kumar 1A). EXAMINATION: MRI Wrist Arthrogram Right HISTORY: S69.81XA Other specified injuries of right wrist, hand and finger(s),. Technique: Routine MRI arthrogram of the right wrist.Contrast was injected into the radiocarpal joint per the fluoroscopic images.; Comparison: Radiographs 03/25/2020. Arthrogram injection 07/04/2020 Result: Bone Marrow: There is no evidence of fracture, bone bruise or osteonecrosis. Ligaments: The scapholunate ligament and lunotriquetral ligament appear to be intact, with no intra-articular contrast extending across these ligaments. Triangular Fibrocartilage: There is contrast extending into the distal radioulnar joint with apparent subtle slit/tear in the central portion of the TFCC with the ulnar and radial attachments appearing otherwise intact (Kumar 1A). Cartilage: The articular cartilage of the radiocarpal and intercarpal joints is preserved. Tendons: The flexor and extensor tendons are intact. Nerves: The visualized portions of the median and ulnar nerves appear to be within normal limits. Joint Fluid and Synovium: Unable to assess due to intra-articular contrast for arthrogram technique OTHER: No other significant abnormality identified. FINAL REPORT Dictated: 07/04/2020 12:58 pm Justino Chandler MD. Signed (Electronic Signature): 07/04/2020 12:58 pm Signed by: Justino Chandler MD Transcribed by: CHASITY Technologist: JAY Technical Comments MultiHance Contrast amount in ml's: 1 Normal [facility] RAD - Consent to Procedureon 07-04-2020 RAD - Consent to Procedure [id number] CD:127 Normal [facility] RAD - MRI Screening Formon 1 RAD - MRI Screening Form [id number] D:127 Normal [facility] XR Inj Wrist Arthrogram Righ ton 07-04-2020 XR Inj Wrist Arthrogram Right Exam Date/Time: 07/04/2020 10:36 EDT Reason for Exam: S69.81XA Other specified injuries of right wrist, hand and finger(s), Report IMPRESSION: RIGHT WRIST ARTHROGRAM FOR MRI, WHICH WILL BE REPORTED SEPARATELY. EXAM: XR Inj Wrist Arthrogram Right DATE: 07/04/2020 CLINICAL HISTORY: S69.81XA Other specified injuries of right wrist, hand and finger(s),. COMPARISON: Right wrist radiographs 03/25/2020. PROCEDURE: Informed consent was obtained. Sterile technique, local lidocaine anesthesia and fluoroscopic guidance were used to place a 25-gauge needle into the right wrist joint. Approximately 0.5 mL of Isovue 300 contrast was injected 2 minutes to confirm intra-articular positioning. A total of 0.70 mGy of fluoroscopy was used with 3 fluoroscopic cine series saved. No diagnostic images were obtained. The right wrist MRI will be reported separately. FINAL REPORT Dictated: 07/04/2020 10:44 am Frankie López MD Signed (Electronic Signature): 07/04/2020 10:44 am Signed by: Frankie López MD Transcribed by: CHASITY Technologist: DARIO Technical Comments Contrast: Isovue 300 Contrast amount in ml's: 4 Radiation Dose: Ka,r in mGy = 0.7 [facility] Medication Managementon 06-04 Medication Management [id number]#[id number] [facility] Physical Therapy Noteon 06-04 Physical Therapy Note [id number]#1.00O [facility] Physician Orderon 06-20-2020 Physician Order [id number]#1.00 CD:127 [facility] Coding Summaryon 05-01-2020 Coding Summary CODING DATE: 020 [facility] STATUS: PAYOR: Medicaid HMO ADMIT DX: REASON FOR VISIT DX: S63.501A Unspecified sprain of right wrist, initial encounter FINAL DX: PRINCIPAL: S63.501A Unspecified sprain of right wrist, initial encounter SECONDARY: PYMT PROC APC STAT DESCRIPTION DOCTOR NAME DATE NOTE: The code number assigned matches the documented diagnosis and / or procedure in the patient's chart. However, the narrative phrase printed from the coding software may appear abbreviated, or result in slightly different terminology. Coded By: Alpa Norman Date Saved: 05/01/2020 11:46 am [facility] Provider [place] 05-01-2020 Provider Orders [id number] [facility] Coding Summaryon 04-16-2020 Coding Summary CODING DATE: 020 [facility] STATUS: Home PAYOR: Medicaid HMO ADMIT DX: REASON FOR VISIT DX: Z01.818 Encounter for other preprocedural examination FINAL DX: PRINCIPAL: Z01.818 Encounter for other preprocedural examination SECONDARY: PYMT PROC APC STAT DESCRIPTION DOCTOR NAME DATE NOTE: The code number assigned matches the documented diagnosis and / or procedure in the patient's chart. However, the narrative phrase printed from the coding software may appear abbreviated, or result in slightly different terminology. Coded By: Alpa Norman Date Saved: 04/16/2020 02:37 pm [facility] Lab - Immunology/Serology Re sults 03-31-2020 Lab - Immunology/Serology Results [id number] GTIFF [facility] POCT urine pregnancyon 03-31 Beta HCG ( test) Ql (U) Negative NEGATIVE [place], [place] Comment on above: Specimens with hCG l evels near the threshold of the test (25 mIU/mL) may give a negative or indeterminate result. In such cases, another test should be performed with a new specimen in 48-72 hours. If early is suspected clinically in this setting, correlation with quantitative serum b-hCG level is suggested. ED Note-Nursingon 03-28-2020 ED Note-Nursing Spoke with Abhishek brooks ab and he states he faxed the results of fthis Coivid testing to the number on the order. [facility] Provider [place] 03-28-2020 Provider Orders [id number]#1.00O TGTIFF [facility] SARS-CoV-2 (COVID-19) PCRon 03-28-2020 COVID-19 PCR Not Detected Normal Not Detected [facility] Comment on above: Order Comment: Sent to [facility] Performed By: #### 6 [id number] ####[facility] (DEFAULT)[address] [place] [address] Coding Summaryon 02-20-2020 Coding Summary CODING DATE: 020 [facility] STATUS: Home PAYOR: Medicaid HMO ADMIT DX: REASON FOR VISIT DX: M54.9 Dorsalgia, unspecified M79.671 Pain in right foot M25.531 Pain in right wrist FINAL DX: PRINCIPAL: S93.601A Unspecified sprain of right foot, initial encounter SECONDARY: S63.501A Unspecified sprain of right wrist, initial encounter S29.012A Strain of muscle and tendon of back wall of thorax, initial encounter W01.0XXA Fall on same level from slipping, tripping and stumbling without subsequent striking against object, initial encounter PYMT PROC APC STAT DESCRIPTION DOCTOR NAME DATE NOTE: The code number assigned matches the documented diagnosis and / or procedure in the patient's chart. However, the narrative phrase printed from the coding software may appear abbreviated, or result in slightly different terminology. Coded By: Alpa Norman Date Saved: 02/20/2020 11:22 am [facility] Consent Formson 02-19-2020 Consent Forms [id number]#1.00O [facility] Medication Managementon 01-31 Medication Management [id number]#1.00O [facility] ED Clinical Summaryon 2019 ED Clinical Summary [facility] ? Urgent Care [address] [place] [address] Clinical Summary PERSON INFORMATION Name: ANGELA HENDRICKSON Age: 34 Years Sex: FEMALE : 1985 MRN: Acct#: Visit Reason: Back pain; Foot pain-swelling; FALL, RIGHT WRIST PAIN, RIGHT FOOT PAIN, BACK PAIN Arrival: 02/18/2020 12:47:00 Discharge: 02/18/2020 14:46:00 LOS: 000 01:59 Check In: 02/18/2020 12:47:00 Checkout: 02/18/2020 14:46:00 Address: [address] [place] [address] PCP: Provider, None PROVIDER INFORMATION Provider Role Assigned Unassigned Jack KNIGHT, Suze ED Nurse 02/18/2020 12:55:51 Charlie Romero-C ED PA 02/18/2020 12:57:26 VITALS INFORMATION Vital Sign Triage Latest Temperature Tympanic Temperature Temporal Artery Pulse Rate O2 Sat Respiratory Rate Blood Pressure /88 mmHg /88 mmHg MEDICAL INFORMATION Medications Given: Allergy Information: Claritin; methylPREDNISolone PHYSICIAN DOCUMENTATION DISCHARGE INFORMATION: Discharge Disposition: Home Discharge Location: Home PATIENT EDUCATION INFORMATION Instructions: Wrist Fracture Treated With Immobilization; Thoracic Strain, Rdoe-cr-Clfc; Wrist Sprain, Adult; Foot Sprain Follow-Up: With: Address: When: Rafita Watson [address] [place] [id number] [employer] (1) Within 1 to 2 days With: Address: When: Follow up with primary care provider Within 2 to 4 days DIAGNOSIS: Right foot sprain; Sprain of right wrist; Strain of thoracic spine Patient Understands: Yes - Patient/family/caregive r verbalizes understanding of instructions given Comment: Normal [facility] ED Patient Summaryon 020 ED Patient Summary [facility] ? Urgent Care [address] [place], [place] [id number] PATIENT DISCHARGE INSTRUCTIONS Patient Information Name: ANGELA HENDRICKSON Age: 34 Years Date of : 1985 Reason For Visit: Back pain; Foot pain-swelling; FALL, RIGHT WRIST PAIN, RIGHT FOOT PAIN, BACK PAIN Arrival Time: 02/18/2020 12:47:00 Primary Care Physician: Provider, None Attending Physician: Esteban Barry Comment: Patient Education With: Address: When: Rafita Watson [address] [place] [id number] [employer] (1) Within 1 to 2 days With: Address: When: Follow up with primary care provider Within 2 to 4 days Wrist Fracture Treated With Immobilization A wrist fracture is a break or crack in one of the bones of the wrist. The wrist is made up of eight small bones at the palm of the hand (carpal bones) and two long bones that make up the forearm (radius and ulna). If the joint is stable and the bones are still in their normal position (nondisplaced), the injury may be treated with immobilization. This involves the use of a cast, splint, or sling to hold the wrist in place. Immobilization ensures that the bones continue to stay in the correct position while the wrist is healing. What are the causes? This condition may be caused by: ? A direct force to the wrist. ? Falling on an outstretched hand. ? Trauma, such as a car accident or a fall. What increases the risk? The following factors may make you more likely to develop this condition: ? Doing contact sports or high-risk sports such as skiing, biking, and ice skating. ? Taking steroid medicines. ? Smoking. ? Being female. ? Being . ? Drinking more than three alcoholic beverages per day. ? Having a condition that weakens the bones (osteoporosis). ? Being older. ? Having a history of previous fractures. What are the signs or symptoms? Symptoms of this condition include: ? Pain. ? Swelling. ? Bruising. ? Not being able to move the wrist normally. Additionally, the wrist may hang in an odd position or appear deformed. How is this diagnosed? This condition may be diagnosed based on a physical exam and X-rays. You may also have a CT scan or MRI. How is this treated? Treatment for this condition involves wearing a cast, splint, or sling until the injured area is stable enough for you to begin jcxit-ym-fpwdvm exercises. You may also be prescribed pain medicine. Follow these instructions at home: If you have a cast: ? Do not stick anything inside the cast to scratch your skin. Doing that increases your risk of infection. ? Check the skin around the cast every day. Tell your health care provider about any concerns. ? You may put lotion on dry skin around the edges of the cast. Do not put lotion on the skin underneath the cast. ? Keep the cast clean and dry. If you have a splint or sling: ? Wear the splint or sling as told by your health care provider. Remove it only as told by your health care provider. ? Loosen the splint or sling if your fingers tingle, become numb, or turn cold and blue. ? Keep the splint or sling clean and dry. Bathing ? Do not take baths, swim, or use a hot tub until your health care provider approves. Ask your health care provider if you may take showers. You may only be allowed to take sponge baths. ? If your cast, splint, or sling is not waterproof: ? Do not let it get wet. ? Cover it with a watertight covering when you take a bath or a shower. ? If you have a sling, remove it for bathing only if your health care provider tells you it is safe to do that. Managing pain, stiffness, and swelling ? If directed, put ice on the injured area. ? If you have a removable splint or sling, remove it as told by your health care provider. ? Put ice in a plastic bag. ? Place a towel between your skin and the bag or between your cast and the bag. ? Leave the ice on for 20 minutes, 2?3 times a day. ? Move your fingers often to avoid stiffness and to lessen swelling. ? Raise (elevate) the injured area above the level of your heart while you are sitting or lying down. Driving ? Do not drive or use heavy machinery while taking prescription pain medicine. ? Ask your health care provider when it is safe to drive if you have a cast, splint, or sling on your wrist. Activity ? Return to your normal activities as told by your health care provider. Ask your health care provider what activities are safe for you. ? Do not lift with your injured wrist until your health care provider approves. ? Do jjrbt-nk-jrxfxp exercises only as told by your health care provider or physical therapist. General instructions ? Do not put pressure on any part of the cast or splint until it is fully hardened. This may take several hours. ? Take zbyt-kom-mwktbyx and prescription medicines only as told by your health care provider. ? Do not use any products that contain nicotine or tobacco, such as cigarettes, e-cigarettes, and chewing tobacco. These can delay bone healing. If you need help quitting, ask your health care provider. ? If you were prescribed pain medicine, take steps to prevent or treat constipation. Your health care provider may recommend that you: ? Drink enough fluid to keep your urine pale yellow. ? Take qbzj-zov-gmgopkg or prescription medicines. ? Eat foods that are high in fiber, such as beans, whole grains, and fresh fruits and vegetables. ? Limit foods that are high in fat and processed sugars, such as fried or sweet foods. ? Keep all follow-up visits as told by your health care provider. This is important. Contact a health care provider if: ? Your cast, splint, or sling is damaged or loose. ? You have any new pain, swelling, or bruising. ? Your pain, swelling, and bruising do not improve. ? You have a fever. ? You have chills. Get help right away if: ? Your skin or fingers on your injured arm turn blue or rosenthal. ? Your arm feels cold or numb. ? You have severe pain in your injured wrist. Summary ? A wrist fracture is a break or crack in one of the bones of the wrist. ? If the joint is stable and the bones are still in their normal position, the injury may be treated by wearing a cast, splint, or sling. ? If you have a cast, check the skin around the cast every day. Tell your health care provider about any concerns. ? If you have a splint or sling, wear it as told by your health care provider. Remove it only as told by your health care provider. This information is not intended to replace advice given to you by your health care provider. Make sure you discuss any questions you have with your health care provider. Document Released: 06/29/2006 Document Revised: 02/20/2019 Document Reviewed: 02/20/2019 [employer] Patient Education ? 2019 [employer]. Thoracic Strain Thoracic strain is an injury to the muscles or tendons that attach to the upper back. A strain can be mild or severe. A mild strain may take only 1?2 weeks to heal. A severe strain involves torn muscles or tendons, so it may take 6?8 weeks to heal. Follow these instructions at home: ? Rest as needed. Limit your activity as told by your doctor. ? If directed, put ice on the injured area: ? Put ice in a plastic bag. ? Place a towel between your skin and the bag. ? Leave the ice on for 20 minutes, 2?3 times per day. ? Take bcsi-rih-llirdso and prescription medicines only as told by your doctor. ? Begin doing exercises as told by your doctor or physical therapist. ? Warm up before being active. ? Bend your knees before you lift heavy objects. ? Keep all follow-up visits as told by your doctor. This is important. Contact a doctor if: ? Your pain is not helped by medicine. ? Your pain, bruising, or swelling is getting worse. ? You have a fever. Get help right away if: ? You have shortness of breath. ? You have chest pain. ? You have weakness or loss of feeling (numbness) in your legs. ? You cannot control when you pee (urinate). This information is not intended to replace advice given to you by your health care provider. Make sure you discuss any questions you have with your health care provider. Document Released: 03/07/2009 Document Revised: 05/21/2017 Document Reviewed: 11/13/2015 [employer] Patient Education ? 2019 [employer]. Wrist Sprain, Adult A wrist sprain is a stretch or tear in the strong, fibrous tissues (ligaments) that connect your wrist bones. There are three types of wrist sprains: ? Grade 1. In this type of sprain, the ligament is stretched more than normal. ? Grade 2. In this type of sprain, the ligament is partially torn. You may be able to move your wrist, but not very much. ? Grade 3. In this type of sprain, the ligament or muscle is completely torn. You may find it difficult or extremely painful to move your wrist even a little. What are the causes? A wrist sprain can be caused by using the wrist too much during sports, exercise, or at work. It can also happen with a fall or during an accident. What increases the risk? This condition is more likely to occur in people: ? With a previous wrist or arm injury. ? With poor wrist strength and flexibility. ? Who play contact sports, such as football or soccer. ? Who play sports that may result in a fall, such as skateboarding, biking, skiing, or snowboarding. ? Who do not exercise regularly. ? Who use exercise equipment that does not fit well. What are the signs or symptoms? Symptoms of this condition include: ? Pain in the wrist, arm, or hand. ? Swelling or bruised skin near the wrist, hand, or arm. The skin may look yellow or kind of blue. ? Stiffness or trouble moving the hand. ? Hearing a pop or feeling a tear at the time of the injury. ? A warm feeling in the skin around the wrist. How is this diagnosed? This condition is diagnosed with a physical exam. Sometimes an X-ray is taken to make sure a bone did not break. If your health care provider thinks that you tore a ligament, he or she may order an MRI of your wrist. How is this treated? This condition is treated by resting and applying ice to your wrist. Additional treatment may include: ? Medicine for pain and inflammation. ? A splint to keep your wrist still (immobilized). ? Exercises to strengthen and stretch your wrist. ? Surgery. This may be done if the ligament is completely torn. Follow these instructions at home: If you have a splint: ? Do not put pressure on any part of the splint until it is fully hardened. This may take several hours. ? Wear the splint as told by your health care provider. Remove it only as told by your health care provider. ? Loosen the splint if your fingers tingle, become numb, or turn cold and blue. ? If your splint is not waterproof: ? Do not let it get wet. ? Cover it with a watertight covering when you take a bath or a shower. ? Keep the splint clean. Managing pain, stiffness, and swelling ? If directed, put ice on the injured area. ? If you have a removable splint, remove it as told by your health care provider. ? Put ice in a plastic bag. ? Place a towel between your skin and the bag or between the splint and the bag. ? Leave the ice on for 20 minutes, 2?3 times per day. ? Move your fingers often to avoid stiffness and to lessen swelling. ? Raise (elevate) the injured area above the level of your heart while you are sitting or lying down. Activity ? Rest your wrist. Do not do things that cause pain. ? Return to your normal activities as told by your health care provider. Ask your health care provider what activities are safe for you. ? Do exercises as told by your health care provider. General instructions ? Take hozv-dnw-zyfstsi and prescription medicines only as told by your health care provider. ? Do not use any products that contain nicotine or tobacco, such as cigarettes and e-cigarettes. These can delay healing. If you need help quitting, ask your health care provider. ? Ask your health care provider when it is safe to drive if you have a splint. ? Keep all follow-up visits as told by your health care provider. This is important. Contact a health care provider if: ? Your pain, bruising, or swelling gets worse. ? Your skin becomes red, gets a rash, or has open sores. ? Your pain does not get better or it gets worse. Get help right away if: ? You have a new or sudden sharp pain in the hand, arm, or wrist. ? You have tingling or numbness in your hand. ? Your fingers turn white, very red, or cold and blue. ? You cannot move your fingers. This information is not intended to replace advice given to you by your health care provider. Make sure you discuss any questions you have with your health care provider. Document Released: 05/23/2015 Document Revised: 04/16/2017 Document Reviewed: 04/07/2017 [employer] Patient Education ? 2019 [employer]. Foot Sprain A foot sprain is an injury to one of the strong bands of tissue (ligaments) that connect and support the bones in your feet. The ligament can be stretched too much and tear. A tear can be either partial or complete. The severity of the sprain depends on how much of the ligament was damaged or torn. What are the causes? This condition is usually caused by suddenly twisting or pivoting your foot. What increases the risk? This injury is more likely to occur in people who: ? Play a sport, such as basketball or football. ? Exercise or play a sport without warming up. ? Start a new workout or sport. ? Suddenly increase how long or hard they exercise or play a sport. ? Have previously injured their foot or ankle. What are the signs or symptoms? Symptoms of this condition start soon after an injury and include: ? Pain, especially in the arch of the foot. ? Bruising. ? Swelling. ? Inability to walk or use the foot to support body weight. How is this diagnosed? This condition is diagnosed with a medical history and physical exam. You may also have imaging tests, such as: ? X-rays to make sure there are no broken bones (fractures). ? An MRI to see if the ligament is torn. How is this treated? Treatment for this condition depends on the severity of the sprain. ? Mild sprains can be treated with: ? Rest, ice, compression, and elevation (RICE). ? Keeping your foot in a fixed position (immobilization) for a period of time. This is done if your ligament is overstretched or partially torn. Your health care provider will apply a bandage, splint, or walking boot to keep your foot from moving until it heals. ? Using crutches or a scooter for a few weeks to avoid putting weight on your foot while it is healing. ? Major sprains can be treated with: ? Surgery. This is done if your ligament is fully torn and a procedure is needed to reconnect it to the bone. ? A cast or splint. This will be needed after surgery. A cast or splint will need to stay on your foot while it heals. ? In both types of sprains, you may need to exercise or have physical therapy to strengthen your foot. Follow these instructions at home: If you have a bandage, splint, or boot: ? Wear the bandage, splint, or boot as told by your health care provider. Remove only as told by your health care provider. ? Loosen the bandage, splint, or boot if your toes tingle, become numb, or turn cold and blue. ? Keep the bandage, splint, or boot clean and dry. If you have a cast: ? Do not stick anything inside the cast to scratch your skin. Doing that increases your risk for infection. ? Check the skin around the cast every day. Tell your health care provider about any concerns. ? You may put lotion on dry skin around the edges of the cast. Do not put lotion on the skin underneath the cast. ? Keep the cast clean and dry. Bathing ? Do not take baths, swim, or use a hot tub until your health care provider approves. Ask your health care provider if you may take showers. You may only be allowed to take sponge baths. ? If the bandage, splint, boot, or cast is not waterproof: ? Do not let it get wet. ? Cover it with a watertight covering when you take a shower. Managing pain, stiffness, and swelling ? If directed, put ice on the injured area: ? If you have a removable splint, boot, or immobilizer, remove it as told by your health care provider. ? Put ice in a plastic bag. ? Place a towel between your skin and the bag. ? Leave the ice on for 20 minutes, 2?3 times per day. ? Move your toes often to avoid stiffness and to lessen swelling. ? Raise (elevate) the injured area above the level of your heart while you are sitting or lying down. Driving ? Do not drive or operate heavy machinery while taking pain medicine. ? Ask your health care provider when it is safe to drive if you have a bandage, splint, or walking boot on your foot. Activity ? Do not use the injured foot to support your body weight until your health care provider says that you can. Use crutches or other supportive devices as directed by your health care provider. ? Ask your health care provider what activities are safe for you. Do any exercise or physical therapy as directed. ? Gradually increase how much and how far you walk until your health care provider says it is safe to return to full activity. General instructions ? If you have a cast, do not put pressure on any part of it until it is fully hardened. This may take several hours. ? Take hkfv-pak-ikoltdo and prescription medicines only as told by your health care provider. ? When you can walk without pain, wear supportive shoes that have stiff soles. Do not wear flip-flops, and do not walk barefoot. ? Keep all follow-up visits as told by your health care provider. This is important. Contact a health care provider if: ? Your pain is not controlled with medicine. ? Your bruising or swelling gets worse or does not get better with treatment. ? Your splint, boot, or cast is damaged. Get help right away if: ? You develop severe numbness or tingling in your foot. ? Your foot turns blue, white, or rosenthal, and it feels cold. Summary ? A foot sprain is an injury to one of the strong bands of tissue (ligaments) that connect and support the bones in your feet. ? Your health care provider may recommend a splint or boot for your foot to support it while it heals. In some cases, surgery may be needed. ? Physical therapy can help keep your other muscles strong until your foot gets better. This information is not intended to replace advice given to you by your health care provider. Make sure you discuss any questions you have with your health care provider. Document Released: 03/11/2003 Document Revised: 09/23/2018 Document Reviewed: 09/23/2018 [employer] Patient Education ? 2019 [employer] Medication Information: The exam and treatment you received today in the [facility] Emergency Department were for an urgent problem and are not intended as complete care. It is important for you to follow up with a doctor, nurse practitioner, or physician?s assistant professor of surgery for ongoing care. If your symptoms become worse or you do not improve as expected and you are unable to reach your usual health care provider, you should return to the Emergency Department, we are available 24 hours a day. For those patients who have received Radiology results, the interpretation of your X-ray as given to you by our Emergency Department physician is only a preliminary report. The Radiologist will review your films and if there is a change in the diagnosis you will be notified by phone. Please make sure you have provided a working phone number so we can reach you if necessary. In the event that you had a lab culture while you were a patient in the Emergency Department, you will be notified by phone if there is a need to change your antibiotic. Please make sure you have provided a working phone number so we can reach you if necessary. [facility] Emergency Department has provided you with a complete list of medications post discharge. Please inform your architectural drafter/provider of your visit and for further instruction on these medications. Any specific questions regarding your chronic medications and dosages should be discussed with your primary care physician(s) and/or pharmacist. New Medications [facility], [address] [place], [place] [id number], [phone] ibuprofen (ibuprofen 600 mg oral tablet) 1 tab(s) Oral Every 8 hours as needed as needed for pain for 10 Days. Refills: 0. Medications to Continue That Have Not Changed Other Medications albuterol (albuterol 0.083% inh solution) 2.5 Milligram Nebulized inhalation every 6 hours. albuterol (albuterol CFC free 90 mcg/inh inhalation aerosol) Inhalation 4 times a day. atorvastatin (Lipitor 20 mg oral tablet) 1 tab(s) Oral every day. budesonide-formoterol (Symbicort 160 mcg-4.5 mcg/inh) 2 puff(s) Inhalation 2 times a day. busPIRone (busPIRone 7.5 mg oral tablet) 1 tab(s) Oral 2 times a day. cetirizine (ZyrTEC 10 mg oral tablet) 1 tab(s) Oral every day. diclofenac 75 Milligram Oral. gabapentin (gabapentin 300 mg oral capsule) 1 cap(s) Oral 3 times a day. hydroCHLOROthiazide 12.5 Milligram Oral every day. hydrOXYzine 25 Milligram. levothyroxine (Synthroid) 50 Microgram Oral every day. lisinopril (lisinopril 20 mg oral tablet) 1 tab(s) Oral every day. loperamide (Imodium A-D) 2 Milligram Oral every 4 hours. medroxyPROGESTERone (medroxyPROGESTERone 400 mg/mL intramuscular suspension) 1 Milliliter Intramuscular every week. meloxicam (Mobic 15 mg oral tablet) 1 tab(s) Oral every day. montelukast (Singulair 10 mg oral tablet) 1 tab(s) Oral every day. QUEtiapine (QUEtiapine 200 mg oral tablet) 1 tab(s) Oral 2 times a day. raNITIdine (Zantac 150) 150 Milligram Oral 2 times a day. sertraline Oral every day. Visit Information Visit Diagnosis: Diagnoses This Visit Back pain ([id number]) Foot pain-swelling ([id number]) Right foot sprain (S93.601A) Sprain of right wrist (S63.501A) Strain of thoracic spine (S29.012A) If you received any narcotics, sedation, or any other medication that causes drowsiness for the next 24 hours, unless otherwise directed: ? Do not drive a car. ? Do not operate machinery such as power tools, lawn mowers, drills, sewing machines, or stoves ? Avoid alcoholic beverages and drugs for allergies, nerves, or sleep ? Do not make important personal or business decisions or sign any legal documents Reason for Visit: R outer foot , low to upper spine, R wrist pain Allergies: Substance Reaction Symptoms Type Comments Claritin Tachycardia Drug methylPREDNISolone Hives Drug Vital Signs: Vitals and Measurements this Visit (last charted value for your 02/18/2020 visit) Vital Signs This Visit Temperature Oral: 36.8 DegC Peripheral Pulse Rate: 100 bpm Respiratory Rate: 20 br/min Systolic Blood Pressure: 132 mmHg Diastolic Blood Pressure: 88 mmHg O2 Flow: 0 L/min Measurements This Visit Height/Length Dosin.8 cm Weight Dosin.4 kg Problems List: Problem Onset Comments Asthma Hypothyroid Major Tests and Procedures: The following procedures and tests were performed during your ED visit. Laboratory Radiology XR Foot Complete Right 02/18/20 13:21:00 EDT Stat, pain, Allow Modification Per Radiologist, Transport Mode: Cart, 02/18/20 13:21:00 EDT XR Spine Thoracic 3 Views 02/18/20 13:21:00 EDT Stat, pain, Allow Modification Per Radiologist, Transport Mode: Cart, 02/18/20 13:21:00 EDT XR Wrist Complete Right 02/18/20 13:21:00 EDT Stat, pain, Allow Modification Per Radiologist, Transport Mode: Cart, 02/18/20 13:21:00 EDT Cardiology Viruses or Bacteria What?s got you sick? Antibiotics only treat bacterial infections. Viral illnesses cannot be treated with antibiotics. When an antibiotic is not prescribed, ask your healthcare professional for tips on how to relieve symptoms and feel better. Usual Cause Illness Viruses Bacteria Antibiotic Needed Cold/Runny Nose NO Bronchitis/Chest Cold (in otherwise healthy children and adults) NO Whooping Cough Yes Flu NO Strep Throat Yes Sore Throat (except strep) NO Fluid in the middle ear (otitis media with effusion) NO Urinary Tract Infection Yes Antibiotics Aren?t Always the Answer www.cdc.gov/getsmart GET SMART Know When Antibiotics Work [place] Department of Health and Human Services Centers for Disease Control and Prevention June 2014 [facility] Patient Handouton 02-18-2020 Patient Handout Patient Education Materials Follows: Wrist Fracture Treated With Immobilization A wrist fracture is a break or crack in one of the bones of the wrist. The wrist is made up of eight small bones at the palm of the hand (carpal bones) and two long bones that make up the forearm (radius and ulna). If the joint is stable and the bones are still in their normal position (nondisplaced), the injury may be treated with immobilization. This involves the use of a cast, splint, or sling to hold the wrist in place. Immobilization ensures that the bones continue to stay in the correct position while the wrist is healing. What are the causes? This condition may be caused by: ? A direct force to the wrist. ? Falling on an outstretched hand. ? Trauma, such as a car accident or a fall. What increases the risk? The following factors may make you more likely to develop this condition: ? Doing contact sports or high-risk sports such as skiing, biking, and ice skating. ? Taking steroid medicines. ? Smoking. ? Being female. ? Being . ? Drinking more than three alcoholic beverages per day. ? Having a condition that weakens the bones (osteoporosis). ? Being older. ? Having a history of previous fractures. What are the signs or symptoms? Symptoms of this condition include: ? Pain. ? Swelling. ? Bruising. ? Not being able to move the wrist normally. Additionally, the wrist may hang in an odd position or appear deformed. How is this diagnosed? This condition may be diagnosed based on a physical exam and X-rays. You may also have a CT scan or MRI. How is this treated? Treatment for this condition involves wearing a cast, splint, or sling until the injured area is stable enough for you to begin ruvyf-zx-jlxsnr exercises. You may also be prescribed pain medicine. Follow these instructions at home: If you have a cast: ? Do not stick anything inside the cast to scratch your skin. Doing that increases your risk of infection. ? Check the skin around the cast every day. Tell your health care provider about any concerns. ? You may put lotion on dry skin around the edges of the cast. Do not put lotion on the skin underneath the cast. ? Keep the cast clean and dry. If you have a splint or sling: ? Wear the splint or sling as told by your health care provider. Remove it only as told by your health care provider. ? Loosen the splint or sling if your fingers tingle, become numb, or turn cold and blue. ? Keep the splint or sling clean and dry. Bathing ? Do not take baths, swim, or use a hot tub until your health care provider approves. Ask your health care provider if you may take showers. You may only be allowed to take sponge baths. ? If your cast, splint, or sling is not waterproof: ? Do not let it get wet. ? Cover it with a watertight covering when you take a bath or a shower. ? If you have a sling, remove it for bathing only if your health care provider tells you it is safe to do that. Managing pain, stiffness, and swelling ? If directed, put ice on the injured area. ? If you have a removable splint or sling, remove it as told by your health care provider. ? Put ice in a plastic bag. ? Place a towel between your skin and the bag or between your cast and the bag. ? Leave the ice on for 20 minutes, 2?3 times a day. ? Move your fingers often to avoid stiffness and to lessen swelling. ? Raise (elevate) the injured area above the level of your heart while you are sitting or lying down. Driving ? Do not drive or use heavy machinery while taking prescription pain medicine. ? Ask your health care provider when it is safe to drive if you have a cast, splint, or sling on your wrist. Activity ? Return to your normal activities as told by your health care provider. Ask your health care provider what activities are safe for you. ? Do not lift with your injured wrist until your health care provider approves. ? Do vuqcx-sn-vdlhpt exercises only as told by your health care provider or physical therapist. General instructions ? Do not put pressure on any part of the cast or splint until it is fully hardened. This may take several hours. ? Take hvpa-kfm-kyzxqtc and prescription medicines only as told by your health care provider. ? Do not use any products that contain nicotine or tobacco, such as cigarettes, e-cigarettes, and chewing tobacco. These can delay bone healing. If you need help quitting, ask your health care provider. ? If you were prescribed pain medicine, take steps to prevent or treat constipation. Your health care provider may recommend that you: ? Drink enough fluid to keep your urine pale yellow. ? Take lnkv-sep-hxiokif or prescription medicines. ? Eat foods that are high in fiber, such as beans, whole grains, and fresh fruits and vegetables. ? Limit foods that are high in fat and processed sugars, such as fried or sweet foods. ? Keep all follow-up visits as told by your health care provider. This is important. Contact a health care provider if: ? Your cast, splint, or sling is damaged or loose. ? You have any new pain, swelling, or bruising. ? Your pain, swelling, and bruising do not improve. ? You have a fever. ? You have chills. Get help right away if: ? Your skin or fingers on your injured arm turn blue or rosenthal. ? Your arm feels cold or numb. ? You have severe pain in your injured wrist. Summary ? A wrist fracture is a break or crack in one of the bones of the wrist. ? If the joint is stable and the bones are still in their normal position, the injury may be treated by wearing a cast, splint, or sling. ? If you have a cast, check the skin around the cast every day. Tell your health care provider about any concerns. ? If you have a splint or sling, wear it as told by your health care provider. Remove it only as told by your health care provider. This information is not intended to replace advice given to you by your health care provider. Make sure you discuss any questions you have with your health care provider. Document Released: 06/29/2006 Document Revised: 02/20/2019 Document Reviewed: 02/20/2019 [employer] Patient Education ? 2019 [employer]. Thoracic Strain Thoracic strain is an injury to the muscles or tendons that attach to the upper back. A strain can be mild or severe. A mild strain may take only 1?2 weeks to heal. A severe strain involves torn muscles or tendons, so it may take 6?8 weeks to heal. Follow these instructions at home: ? Rest as needed. Limit your activity as told by your doctor. ? If directed, put ice on the injured area: ? Put ice in a plastic bag. ? Place a towel between your skin and the bag. ? Leave the ice on for 20 minutes, 2?3 times per day. ? Take kxcq-vso-rxjazmv and prescription medicines only as told by your doctor. ? Begin doing exercises as told by your doctor or physical therapist. ? Warm up before being active. ? Bend your knees before you lift heavy objects. ? Keep all follow-up visits as told by your doctor. This is important. Contact a doctor if: ? Your pain is not helped by medicine. ? Your pain, bruising, or swelling is getting worse. ? You have a fever. Get help right away if: ? You have shortness of breath. ? You have chest pain. ? You have weakness or loss of feeling (numbness) in your legs. ? You cannot control when you pee (urinate). This information is not intended to replace advice given to you by your health care provider. Make sure you discuss any questions you have with your health care provider. Document Released: 03/07/2009 Document Revised: 05/21/2017 Document Reviewed: 11/13/2015 [employer] Patient Education ? 2019 [employer]. Wrist Sprain, Adult A wrist sprain is a stretch or tear in the strong, fibrous tissues (ligaments) that connect your wrist bones. There are three types of wrist sprains: ? Grade 1. In this type of sprain, the ligament is stretched more than normal. ? Grade 2. In this type of sprain, the ligament is partially torn. You may be able to move your wrist, but not very much. ? Grade 3. In this type of sprain, the ligament or muscle is completely torn. You may find it difficult or extremely painful to move your wrist even a little. What are the causes? A wrist sprain can be caused by using the wrist too much during sports, exercise, or at work. It can also happen with a fall or during an accident. What increases the risk? This condition is more likely to occur in people: ? With a previous wrist or arm injury. ? With poor wrist strength and flexibility. ? Who play contact sports, such as football or soccer. ? Who play sports that may result in a fall, such as skateboarding, biking, skiing, or snowboarding. ? Who do not exercise regularly. ? Who use exercise equipment that does not fit well. What are the signs or symptoms? Symptoms of this condition include: ? Pain in the wrist, arm, or hand. ? Swelling or bruised skin near the wrist, hand, or arm. The skin may look yellow or kind of blue. ? Stiffness or trouble moving the hand. ? Hearing a pop or feeling a tear at the time of the injury. ? A warm feeling in the skin around the wrist. How is this diagnosed? This condition is diagnosed with a physical exam. Sometimes an X-ray is taken to make sure a bone did not break. If your health care provider thinks that you tore a ligament, he or she may order an MRI of your wrist. How is this treated? This condition is treated by resting and applying ice to your wrist. Additional treatment may include: ? Medicine for pain and inflammation. ? A splint to keep your wrist still (immobilized). ? Exercises to strengthen and stretch your wrist. ? Surgery. This may be done if the ligament is completely torn. Follow these instructions at home: If you have a splint: ? Do not put pressure on any part of the splint until it is fully hardened. This may take several hours. ? Wear the splint as told by your health care provider. Remove it only as told by your health care provider. ? Loosen the splint if your fingers tingle, become numb, or turn cold and blue. ? If your splint is not waterproof: ? Do not let it get wet. ? Cover it with a watertight covering when you take a bath or a shower. ? Keep the splint clean. Managing pain, stiffness, and swelling ? If directed, put ice on the injured area. ? If you have a removable splint, remove it as told by your health care provider. ? Put ice in a plastic bag. ? Place a towel between your skin and the bag or between the splint and the bag. ? Leave the ice on for 20 minutes, 2?3 times per day. ? Move your fingers often to avoid stiffness and to lessen swelling. ? Raise (elevate) the injured area above the level of your heart while you are sitting or lying down. Activity ? Rest your wrist. Do not do things that cause pain. ? Return to your normal activities as told by your health care provider. Ask your health care provider what activities are safe for you. ? Do exercises as told by your health care provider. General instructions ? Take ifbu-saj-dbllqyx and prescription medicines only as told by your health care provider. ? Do not use any products that contain nicotine or tobacco, such as cigarettes and e-cigarettes. These can delay healing. If you need help quitting, ask your health care provider. ? Ask your health care provider when it is safe to drive if you have a splint. ? Keep all follow-up visits as told by your health care provider. This is important. Contact a health care provider if: ? Your pain, bruising, or swelling gets worse. ? Your skin becomes red, gets a rash, or has open sores. ? Your pain does not get better or it gets worse. Get help right away if: ? You have a new or sudden sharp pain in the hand, arm, or wrist. ? You have tingling or numbness in your hand. ? Your fingers turn white, very red, or cold and blue. ? You cannot move your fingers. This information is not intended to replace advice given to you by your health care provider. Make sure you discuss any questions you have with your health care provider. Document Released: 05/23/2015 Document Revised: 04/16/2017 Document Reviewed: 04/07/2017 [employer] Patient Education ? 2019 [employer]. Foot Sprain A foot sprain is an injury to one of the strong bands of tissue (ligaments) that connect and support the bones in your feet. The ligament can be stretched too much and tear. A tear can be either partial or complete. The severity of the sprain depends on how much of the ligament was damaged or torn. What are the causes? This condition is usually caused by suddenly twisting or pivoting your foot. What increases the risk? This injury is more likely to occur in people who: ? Play a sport, such as basketball or football. ? Exercise or play a sport without warming up. ? Start a new workout or sport. ? Suddenly increase how long or hard they exercise or play a sport. ? Have previously injured their foot or ankle. What are the signs or symptoms? Symptoms of this condition start soon after an injury and include: ? Pain, especially in the arch of the foot. ? Bruising. ? Swelling. ? Inability to walk or use the foot to support body weight. How is this diagnosed? This condition is diagnosed with a medical history and physical exam. You may also have imaging tests, such as: ? X-rays to make sure there are no broken bones (fractures). ? An MRI to see if the ligament is torn. How is this treated? Treatment for this condition depends on the severity of the sprain. ? Mild sprains can be treated with: ? Rest, ice, compression, and elevation (RICE). ? Keeping your foot in a fixed position (immobilization) for a period of time. This is done if your ligament is overstretched or partially torn. Your health care provider will apply a bandage, splint, or walking boot to keep your foot from moving until it heals. ? Using crutches or a scooter for a few weeks to avoid putting weight on your foot while it is healing. ? Major sprains can be treated with: ? Surgery. This is done if your ligament is fully torn and a procedure is needed to reconnect it to the bone. ? A cast or splint. This will be needed after surgery. A cast or splint will need to stay on your foot while it heals. ? In both types of sprains, you may need to exercise or have physical therapy to strengthen your foot. Follow these instructions at home: If you have a bandage, splint, or boot: ? Wear the bandage, splint, or boot as told by your health care provider. Remove only as told by your health care provider. ? Loosen the bandage, splint, or boot if your toes tingle, become numb, or turn cold and blue. ? Keep the bandage, splint, or boot clean and dry. If you have a cast: ? Do not stick anything inside the cast to scratch your skin. Doing that increases your risk for infection. ? Check the skin around the cast every day. Tell your health care provider about any concerns. ? You may put lotion on dry skin around the edges of the cast. Do not put lotion on the skin underneath the cast. ? Keep the cast clean and dry. Bathing ? Do not take baths, swim, or use a hot tub until your health care provider approves. Ask your health care provider if you may take showers. You may only be allowed to take sponge baths. ? If the bandage, splint, boot, or cast is not waterproof: ? Do not let it get wet. ? Cover it with a watertight covering when you take a shower. Managing pain, stiffness, and swelling ? If directed, put ice on the injured area: ? If you have a removable splint, boot, or immobilizer, remove it as told by your health care provider. ? Put ice in a plastic bag. ? Place a towel between your skin and the bag. ? Leave the ice on for 20 minutes, 2?3 times per day. ? Move your toes often to avoid stiffness and to lessen swelling. ? Raise (elevate) the injured area above the level of your heart while you are sitting or lying down. Driving ? Do not drive or operate heavy machinery while taking pain medicine. ? Ask your health care provider when it is safe to drive if you have a bandage, splint, or walking boot on your foot. Activity ? Do not use the injured foot to support your body weight until your health care provider says that you can. Use crutches or other supportive devices as directed by your health care provider. ? Ask your health care provider what activities are safe for you. Do any exercise or physical therapy as directed. ? Gradually increase how much and how far you walk until your health care provider says it is safe to return to full activity. General instructions ? If you have a cast, do not put pressure on any part of it until it is fully hardened. This may take several hours. ? Take edyh-let-uelozam and prescription medicines only as told by your health care provider. ? When you can walk without pain, wear supportive shoes that have stiff soles. Do not wear flip-flops, and do not walk barefoot. ? Keep all follow-up visits as told by your health care provider. This is important. Contact a health care provider if: ? Your pain is not controlled with medicine. ? Your bruising or swelling gets worse or does not get better with treatment. ? Your splint, boot, or cast is damaged. Get help right away if: ? You develop severe numbness or tingling in your foot. ? Your foot turns blue, white, or rosenthal, and it feels cold. Summary ? A foot sprain is an injury to one of the strong bands of tissue (ligaments) that connect and support the bones in your feet. ? Your health care provider may recommend a splint or boot for your foot to support it while it heals. In some cases, surgery may be needed. ? Physical therapy can help keep your other muscles strong until your foot gets better. This information is not intended to replace advice given to you by your health care provider. Make sure you discuss any questions you have with your health care provider. Document Released: 03/11/2003 Document Revised: 09/23/2018 Document Reviewed: 09/23/2018 [employer] Interactive Patient Education ? 2019 [employer]. [facility] Urgent Care Note- Provideron 02-18-2020 Urgent Care Note- Provider Patient: ANGELA HENDRICKSON Age: 34 years Sex: FEMALE : 1985 Associated Diagnoses: Right foot sprain; Sprain of right wrist; Strain of thoracic spine Author: Charlie Romero PA-C History of Present Illness This is a 34 year old here today with concerns of mid back pain, right foot pain and right wrist pain since she tripped and fell last night. She states she did not bump her head and there was no LOC. No headache or neck pain today. There is mid back pain, right wrist pain and right foot pain. She has taken Motrin with only minimal relief. No fevers, chills or malaise. No other joint pains or myalgias. No numbness, tingling or weakness. No skin rashes or ecchymosis or abrasion. There are no other associated symptoms. Nothing makes the symptoms better or worse. Symptoms are described as sudden onset, moderate in nature and persisting. Health Status Allergies: Allergic Reactions (Selected) Severity Not Documented Claritin- Tachycardia. MethylPREDNISolone- Hives.. Medications: (Selected) Documented Medications Documented Imodium A-D: 2 mg, PO, q4hr (int), 0 Refill(s) Lipitor 20 mg oral tablet: 20 mg = 1 tab(s), PO, Daily, 0 Refill(s) Mobic 15 mg oral tablet: 15 mg = 1 tab(s), PO, Daily, 0 Refill(s) QUEtiapine 200 mg oral tablet: 200 mg = 1 tab(s), PO, BID, 0 Refill(s) Singulair 10 mg oral tablet: 10 mg = 1 tab(s), PO, Daily, 0 Refill(s) Symbicort 160 mcg-4.5 mcg/inh: 2 puff(s), INH, BID Synthroid: 50 mcg, PO, Daily, 0 Refill(s) Zantac 150: 150 mg, PO, BID, 0 Refill(s) ZyrTEC 10 mg oral tablet: 10 mg = 1 tab(s), PO, Daily, 0 Refill(s) albuterol 0.083% inh solution: 2.5 mg, NEB, q6hr (int), 0 Refill(s) albuterol CFC free 90 mcg/inh inhalation aerosol: INH, QID, 0 Refill(s) busPIRone 7.5 mg oral tablet: 7.5 mg = 1 tab(s), PO, BID, 0 Refill(s) diclofenac: 75 mg, PO, 0 Refill(s) gabapentin 300 mg oral capsule: 300 mg = 1 cap(s), PO, TID, 0 Refill(s) hydrOXYzine: 25 mg, 0 Refill(s) hydroCHLOROthiazide: 12.5 mg, PO, Daily, 0 Refill(s) lisinopril 20 mg oral tablet: 20 mg = 1 tab(s), PO, Daily, 0 Refill(s) medroxyPROGESTERone 400 mg/mL intramuscular suspension: 400 mg = 1 mL, IM, qWeek, 1 mL, 0 Refill(s) sertraline: PO, Daily, 0 Refill(s). Past Medical/ Family/ Social History Medical history: No active or resolved past medical history items have been selected or recorded.. Surgical history: No active procedure history items have been selected or recorded.. Family history: No family history items have been selected or recorded.. Social history: Social & Psychosocial Habits Alcohol 03/21/2019 Alcohol Use: Never Substance Abuse 03/21/2019 Substance use: Never Tobacco 09/04/2019 Smoking tobacco use: Never (less than 100 in l Electronic Cigarette/Vaping 09/04/2019 Electronic Cigarette Use: Never . Problem list: Active Problems (2) Asthma Hypothyroid . Physical Examination GENERAL: Awake, alert and oriented to person, place and situation. Well nourished, well developed, non toxic, NAD. NECK: No bony TTP, normal range of motion, no meningismus, trachea is midline. No anterior or posterior lymphadenopathy. CARDIOVASCULAR: Regular rate and rhythm. +S1 +S2. No murmurs or rubs. RESPIRATORY: Clear to auscultation bilaterally without rales, rhonchi or wheeze. BACK: There is TTP of T10-11, and TTP of the lower thoracic paraspinous muscles. Fair ROM, but with some pain. No bony TTP of the c-spine or l-spine. EXTREMITIES: TTP lateral right foot, TTP of the distal right radius and ulna. Good ROM. No cyanosis, clubbing or obvious edema. Good muscle tone. Brisk cap refill distally, radial and pedal pulses 2+ bilaterally. SKIN: Normal inspection, no visualized ecchymosis, abrasion or rash. NEUROLOGIC: Light touch sensation in tact, strength 5/5 in bilateral lower extremities. Normal mentation. No focal neurological deficits appreciated. Medical Decision Making Orders Launch Orders Radiology: XR Spine Thoracic 3 Views (Order): 02/18/2020 13:21 EDT Stat, pain, Allow Modification Per Radiologist, Transport Mode: Cart XR Foot Complete Right (Order): 02/18/2020 13:21 EDT Stat, pain, Allow Modification Per Radiologist, Transport Mode: Cart XR Wrist Complete Right (Order): 02/18/2020 13:21 EDT Stat, pain, Allow Modification Per Radiologist, Transport Mode: Cart, Launch Orders Patient Care: Brace/Splint ED (Order): 02/18/2020 14:18 EDT, Wrist splint cockup, Launch Orders Patient Care: Brace/Splint ED (Order): 02/18/2020 14:21 EDT, Cast Shoe. Radiology results: X-ray (ST) X-Ray: ? XR Foot Complete Right ? 02/18/20 14:12:30 Preliminary report only IMPRESSION: Thoracic spine study fails to demonstrate definite acute fracture or dislocation. Right wrist study demonstrates faint transverse lucency at the mid navicular level on the frontal view only, though this may be artifactually created, displaced fracture of the navicular cannot be excluded. Right foot study fails to demonstrate definite acute fracture or dislocation. Follow-up as needed. ? Signed By: Jean Carlos Cavazos MD ? XR Spine Thoracic 3 Views ? 02/18/20 14:12:30 Preliminary report only IMPRESSION: Thoracic spine study fails to demonstrate definite acute fracture or dislocation. Right wrist study demonstrates faint transverse lucency at the mid navicular level on the frontal view only, though this may be artifactually created, displaced fracture of the navicular cannot be excluded. Right foot study fails to demonstrate definite acute fracture or dislocation. Follow-up as needed. ? Signed By: Jean Carlos Cavazos MD ? XR Wrist Complete Right ? 02/18/20 14:12:30 Preliminary report only IMPRESSION: Thoracic spine study fails to demonstrate definite acute fracture or dislocation. Right wrist study demonstrates faint transverse lucency at the mid navicular level on the frontal view only, though this may be artifactually created, displaced fracture of the navicular cannot be excluded. Right foot study fails to demonstrate definite acute fracture or dislocation. Follow-up as needed. ? Signed By: Jean Carlos Cavazos MD . Questionable lucency of the navicular on x-ray. Rest, ice, compress, and elevate. Cock up splint is applied by the nurse and checked by myself, and extremity is neurovascularly in tact at the time of discharge. Initial fracture care is performed by myself. Wear splint until ortho follow-up clears here. Will also provided a post-op shoe for her foot sprain. Cast is applied by the nurse and checked by myself, and extremity is neurovascularly in tact at the time of discharge. Motrin for pain, add Tylenol as needed. Return with new, or worsening symptoms, or symptoms failing to improve as expected and the patient voiced their understanding. Questions answered. Follow-up with their family doctor as directed, return here sooner as needed. Impression and Plan Diagnosis Right foot sprain ([id number] S93.601A, Discharge, Medical) Sprain of right wrist (GGM69-[id number] S63.501A, Discharge, Medical) Strain of thoracic spine (XTM87-CP S29.012A, Discharge, Medical) Possible left navicular fracture Plan Condition: Stable. Disposition: Discharged: Time 02/18/2020 14:20:00, to home. Prescriptions: Launch prescriptions Pharmacy: ibuprofen 600 mg oral tablet (Prescribe): 600 mg = 1 tab(s), PO, q8hr, for 10 day(s), PRN: as needed for pain, 30 tab(s), 0 Refill(s). Patient was given the following educational materials: Foot Sprain, Wrist Sprain, Adult, Thoracic Strain, Lsdd-zo-Ezjc, Wrist Fracture Treated With Immobilization, Wrist Fracture Treated With Immobilization, Thoracic Strain, Ykcc-vk-Ejpa, Wrist Sprain, Adult, Foot Sprain. Follow up with: ; Follow up with primary care provider Within 2 to 4 days; Rafita Watson Within 1 to 2 days. Counseled: Patient, Regarding diagnosis, Regarding diagnostic results, Regarding treatment plan, Regarding prescription, Patient indicated understanding of instructions. Normal [facility] [address] Urgent Care Record [facility] ? Urgent Care [address] [place] [address] PATIENT DISCHARGE INSTRUCTIONS Patient Information Name: ANGELA HENDRICKSON Age: 34 Years Date of : 1985 [facility]: [id number] Reason For Visit: Back pain; Foot pain-swelling; FALL, RIGHT WRIST PAIN, RIGHT FOOT PAIN, BACK PAIN Arrival Time: 02/18/2020 12:47:00 Primary Care Physician: Provider, None Attending Physician: Esteban Barry Comment: Visit Diagnosis: Diagnoses This Visit Back pain ([id number]) Foot pain-swelling ([id number]) Right foot sprain (S93.601A) Sprain of right wrist (S63.501A) Strain of thoracic spine (S29.012A) If you received any narcotics, sedation, or any other medication that causes drowsiness for the next 24 hours, unless otherwise directed: ? Do not drive a car. ? Do not operate machinery such as power tools, lawn mowers, drills, sewing machines, or stoves ? Avoid alcoholic beverages and drugs for allergies, nerves, or sleep ? Do not make important personal or business decisions or sign any legal documents With: Address: When: Rafita Watson [address] [place] [address] Business (1) Within 1 to 2 days With: Address: When: Follow up with primary care provider Within 2 to 4 days Medication Information: The exam and treatment you received today in the [facility] were for an urgent problem and are not intended as complete care. It is important for you to follow up with a doctor, nurse practitioner, or physician?s assistant professor of surgery for ongoing care. If your symptoms become worse or you do not improve as expected and you are unable to reach your usual health care provider, you should return to the Emergency Department, we are available 24 hours a day. For those patients who have received Radiology results, the interpretation of your X-ray as given to you by our Urgent Care physician is only a preliminary report. The Radiologist will review your films and if there is a change in the diagnosis you will be notified by phone. Please make sure you have provided a working phone number so we can reach you if necessary. In the event that you had a lab culture while you were a patient in the Urgent Care, you will be notified by phone if there is a need to change your antibiotic. Please make sure you have provided a working phone number so we can reach you if necessary. [facility] has provided you with a complete list of medications post discharge. Please inform your architectural drafter/provider of your visit and for further instruction on these medications. Any specific questions regarding your chronic medications and dosages should be discussed with your primary care physician(s) and/or pharmacist. New Medications [facility], [address] [place], [place] [id number], [phone] ibuprofen (ibuprofen 600 mg oral tablet) 1 tab(s) Oral Every 8 hours as needed as needed for pain for 10 Days. Refills: 0. Medications to Continue That Have Not Changed Other Medications albuterol (albuterol 0.083% inh solution) 2.5 Milligram Nebulized inhalation every 6 hours. albuterol (albuterol CFC free 90 mcg/inh inhalation aerosol) Inhalation 4 times a day. atorvastatin (Lipitor 20 mg oral tablet) 1 tab(s) Oral every day. budesonide-formoterol (Symbicort 160 mcg-4.5 mcg/inh) 2 puff(s) Inhalation 2 times a day. busPIRone (busPIRone 7.5 mg oral tablet) 1 tab(s) Oral 2 times a day. cetirizine (ZyrTEC 10 mg oral tablet) 1 tab(s) Oral every day. diclofenac 75 Milligram Oral. gabapentin (gabapentin 300 mg oral capsule) 1 cap(s) Oral 3 times a day. hydroCHLOROthiazide 12.5 Milligram Oral every day. hydrOXYzine 25 Milligram. levothyroxine (Synthroid) 50 Microgram Oral every day. lisinopril (lisinopril 20 mg oral tablet) 1 tab(s) Oral every day. loperamide (Imodium A-D) 2 Milligram Oral every 4 hours. medroxyPROGESTERone (medroxyPROGESTERone 400 mg/mL intramuscular suspension) 1 Milliliter Intramuscular every week. meloxicam (Mobic 15 mg oral tablet) 1 tab(s) Oral every day. montelukast (Singulair 10 mg oral tablet) 1 tab(s) Oral every day. QUEtiapine (QUEtiapine 200 mg oral tablet) 1 tab(s) Oral 2 times a day. raNITIdine (Zantac 150) 150 Milligram Oral 2 times a day. sertraline Oral every day. Visit Information Allergies: Substance Reaction Symptoms Type Comments Claritin Tachycardia Drug methylPREDNISolone Hives Drug Vital Signs: Vitals and Measurements this Visit (last charted value for your 02/18/2020 visit) Vital Signs This Visit Temperature Oral: 36.8 DegC Peripheral Pulse Rate: 100 bpm Respiratory Rate: 20 br/min Systolic Blood Pressure: 132 mmHg Diastolic Blood Pressure: 88 mmHg O2 Flow: 0 L/min Measurements This Visit Height/Length Dosin.8 cm Weight Dosin.4 kg Problems List: Problem Onset Comments Asthma Hypothyroid Patient Education Wrist Fracture Treated With Immobilization A wrist fracture is a break or crack in one of the bones of the wrist. The wrist is made up of eight small bones at the palm of the hand (carpal bones) and two long bones that make up the forearm (radius and ulna). If the joint is stable and the bones are still in their normal position (nondisplaced), the injury may be treated with immobilization. This involves the use of a cast, splint, or sling to hold the wrist in place. Immobilization ensures that the bones continue to stay in the correct position while the wrist is healing. What are the causes? This condition may be caused by: ? A direct force to the wrist. ? Falling on an outstretched hand. ? Trauma, such as a car accident or a fall. What increases the risk? The following factors may make you more likely to develop this condition: ? Doing contact sports or high-risk sports such as skiing, biking, and ice skating. ? Taking steroid medicines. ? Smoking. ? Being female. ? Being . ? Drinking more than three alcoholic beverages per day. ? Having a condition that weakens the bones (osteoporosis). ? Being older. ? Having a history of previous fractures. What are the signs or symptoms? Symptoms of this condition include: ? Pain. ? Swelling. ? Bruising. ? Not being able to move the wrist normally. Additionally, the wrist may hang in an odd position or appear deformed. How is this diagnosed? This condition may be diagnosed based on a physical exam and X-rays. You may also have a CT scan or MRI. How is this treated? Treatment for this condition involves wearing a cast, splint, or sling until the injured area is stable enough for you to begin ubnzf-dq-krncrv exercises. You may also be prescribed pain medicine. Follow these instructions at home: If you have a cast: ? Do not stick anything inside the cast to scratch your skin. Doing that increases your risk of infection. ? Check the skin around the cast every day. Tell your health care provider about any concerns. ? You may put lotion on dry skin around the edges of the cast. Do not put lotion on the skin underneath the cast. ? Keep the cast clean and dry. If you have a splint or sling: ? Wear the splint or sling as told by your health care provider. Remove it only as told by your health care provider. ? Loosen the splint or sling if your fingers tingle, become numb, or turn cold and blue. ? Keep the splint or sling clean and dry. Bathing ? Do not take baths, swim, or use a hot tub until your health care provider approves. Ask your health care provider if you may take showers. You may only be allowed to take sponge baths. ? If your cast, splint, or sling is not waterproof: ? Do not let it get wet. ? Cover it with a watertight covering when you take a bath or a shower. ? If you have a sling, remove it for bathing only if your health care provider tells you it is safe to do that. Managing pain, stiffness, and swelling ? If directed, put ice on the injured area. ? If you have a removable splint or sling, remove it as told by your health care provider. ? Put ice in a plastic bag. ? Place a towel between your skin and the bag or between your cast and the bag. ? Leave the ice on for 20 minutes, 2?3 times a day. ? Move your fingers often to avoid stiffness and to lessen swelling. ? Raise (elevate) the injured area above the level of your heart while you are sitting or lying down. Driving ? Do not drive or use heavy machinery while taking prescription pain medicine. ? Ask your health care provider when it is safe to drive if you have a cast, splint, or sling on your wrist. Activity ? Return to your normal activities as told by your health care provider. Ask your health care provider what activities are safe for you. ? Do not lift with your injured wrist until your health care provider approves. ? Do msncf-uk-obxlyo exercises only as told by your health care provider or physical therapist. General instructions ? Do not put pressure on any part of the cast or splint until it is fully hardened. This may take several hours. ? Take lqpn-kkz-lljyhhu and prescription medicines only as told by your health care provider. ? Do not use any products that contain nicotine or tobacco, such as cigarettes, e-cigarettes, and chewing tobacco. These can delay bone healing. If you need help quitting, ask your health care provider. ? If you were prescribed pain medicine, take steps to prevent or treat constipation. Your health care provider may recommend that you: ? Drink enough fluid to keep your urine pale yellow. ? Take fsdk-vlu-isdymgv or prescription medicines. ? Eat foods that are high in fiber, such as beans, whole grains, and fresh fruits and vegetables. ? Limit foods that are high in fat and processed sugars, such as fried or sweet foods. ? Keep all follow-up visits as told by your health care provider. This is important. Contact a health care provider if: ? Your cast, splint, or sling is damaged or loose. ? You have any new pain, swelling, or bruising. ? Your pain, swelling, and bruising do not improve. ? You have a fever. ? You have chills. Get help right away if: ? Your skin or fingers on your injured arm turn blue or rosenthal. ? Your arm feels cold or numb. ? You have severe pain in your injured wrist. Summary ? A wrist fracture is a break or crack in one of the bones of the wrist. ? If the joint is stable and the bones are still in their normal position, the injury may be treated by wearing a cast, splint, or sling. ? If you have a cast, check the skin around the cast every day. Tell your health care provider about any concerns. ? If you have a splint or sling, wear it as told by your health care provider. Remove it only as told by your health care provider. This information is not intended to replace advice given to you by your health care provider. Make sure you discuss any questions you have with your health care provider. Document Released: 06/29/2006 Document Revised: 02/20/2019 Document Reviewed: 02/20/2019 [employer] Interactive Patient Education ? 2019 [employer]. Thoracic Strain Thoracic strain is an injury to the muscles or tendons that attach to the upper back. A strain can be mild or severe. A mild strain may take only 1?2 weeks to heal. A severe strain involves torn muscles or tendons, so it may take 6?8 weeks to heal. Follow these instructions at home: ? Rest as needed. Limit your activity as told by your doctor. ? If directed, put ice on the injured area: ? Put ice in a plastic bag. ? Place a towel between your skin and the bag. ? Leave the ice on for 20 minutes, 2?3 times per day. ? Take bqqj-qoh-hllncye and prescription medicines only as told by your doctor. ? Begin doing exercises as told by your doctor or physical therapist. ? Warm up before being active. ? Bend your knees before you lift heavy objects. ? Keep all follow-up visits as told by your doctor. This is important. Contact a doctor if: ? Your pain is not helped by medicine. ? Your pain, bruising, or swelling is getting worse. ? You have a fever. Get help right away if: ? You have shortness of breath. ? You have chest pain. ? You have weakness or loss of feeling (numbness) in your legs. ? You cannot control when you pee (urinate). This information is not intended to replace advice given to you by your health care provider. Make sure you discuss any questions you have with your health care provider. Document Released: 03/07/2009 Document Revised: 05/21/2017 Document Reviewed: 11/13/2015 [employer] Interactive Patient Education ? 2019 [employer]. Wrist Sprain, Adult A wrist sprain is a stretch or tear in the strong, fibrous tissues (ligaments) that connect your wrist bones. There are three types of wrist sprains: ? Grade 1. In this type of sprain, the ligament is stretched more than normal. ? Grade 2. In this type of sprain, the ligament is partially torn. You may be able to move your wrist, but not very much. ? Grade 3. In this type of sprain, the ligament or muscle is completely torn. You may find it difficult or extremely painful to move your wrist even a little. What are the causes? A wrist sprain can be caused by using the wrist too much during sports, exercise, or at work. It can also happen with a fall or during an accident. What increases the risk? This condition is more likely to occur in people: ? With a previous wrist or arm injury. ? With poor wrist strength and flexibility. ? Who play contact sports, such as football or soccer. ? Who play sports that may result in a fall, such as skateboarding, biking, skiing, or snowboarding. ? Who do not exercise regularly. ? Who use exercise equipment that does not fit well. What are the signs or symptoms? Symptoms of this condition include: ? Pain in the wrist, arm, or hand. ? Swelling or bruised skin near the wrist, hand, or arm. The skin may look yellow or kind of blue. ? Stiffness or trouble moving the hand. ? Hearing a pop or feeling a tear at the time of the injury. ? A warm feeling in the skin around the wrist. How is this diagnosed? This condition is diagnosed with a physical exam. Sometimes an X-ray is taken to make sure a bone did not break. If your health care provider thinks that you tore a ligament, he or she may order an MRI of your wrist. How is this treated? This condition is treated by resting and applying ice to your wrist. Additional treatment may include: ? Medicine for pain and inflammation. ? A splint to keep your wrist still (immobilized). ? Exercises to strengthen and stretch your wrist. ? Surgery. This may be done if the ligament is completely torn. Follow these instructions at home: If you have a splint: ? Do not put pressure on any part of the splint until it is fully hardened. This may take several hours. ? Wear the splint as told by your health care provider. Remove it only as told by your health care provider. ? Loosen the splint if your fingers tingle, become numb, or turn cold and blue. ? If your splint is not waterproof: ? Do not let it get wet. ? Cover it with a watertight covering when you take a bath or a shower. ? Keep the splint clean. Managing pain, stiffness, and swelling ? If directed, put ice on the injured area. ? If you have a removable splint, remove it as told by your health care provider. ? Put ice in a plastic bag. ? Place a towel between your skin and the bag or between the splint and the bag. ? Leave the ice on for 20 minutes, 2?3 times per day. ? Move your fingers often to avoid stiffness and to lessen swelling. ? Raise (elevate) the injured area above the level of your heart while you are sitting or lying down. Activity ? Rest your wrist. Do not do things that cause pain. ? Return to your normal activities as told by your health care provider. Ask your health care provider what activities are safe for you. ? Do exercises as told by your health care provider. General instructions ? Take [id number] and prescription medicines only as told by your health care provider. ? Do not use any products that contain nicotine or tobacco, such as cigarettes and e-cigarettes. These can delay healing. If you need help quitting, ask your health care provider. ? Ask your health care provider when it is safe to drive if you have a splint. ? Keep all follow-up visits as told by your health care provider. This is important. Contact a health care provider if: ? Your pain, bruising, or swelling gets worse. ? Your skin becomes red, gets a rash, or has open sores. ? Your pain does not get better or it gets worse. Get help right away if: ? You have a new or sudden sharp pain in the hand, arm, or wrist. ? You have tingling or numbness in your hand. ? Your fingers turn white, very red, or cold and blue. ? You cannot move your fingers. This information is not intended to replace advice given to you by your health care provider. Make sure you discuss any questions you have with your health care provider. Document Released: 05/23/2015 Document Revised: 04/16/2017 Document Reviewed: 04/07/2017 [employer] Patient Education ? 2019 [employer] Foot Sprain A foot sprain is an injury to one of the strong bands of tissue (ligaments) that connect and support the bones in your feet. The ligament can be stretched too much and tear. A tear can be either partial or complete. The severity of the sprain depends on how much of the ligament was damaged or torn. What are the causes? This condition is usually caused by suddenly twisting or pivoting your foot. What increases the risk? This injury is more likely to occur in people who: ? Play a sport, such as basketball or football. ? Exercise or play a sport without warming up. ? Start a new workout or sport. ? Suddenly increase how long or hard they exercise or play a sport. ? Have previously injured their foot or ankle. What are the signs or symptoms? Symptoms of this condition start soon after an injury and include: ? Pain, especially in the arch of the foot. ? Bruising. ? Swelling. ? Inability to walk or use the foot to support body weight. How is this diagnosed? This condition is diagnosed with a medical history and physical exam. You may also have imaging tests, such as: ? X-rays to make sure there are no broken bones (fractures). ? An MRI to see if the ligament is torn. How is this treated? Treatment for this condition depends on the severity of the sprain. ? Mild sprains can be treated with: ? Rest, ice, compression, and elevation (RICE). ? Keeping your foot in a fixed position (immobilization) for a period of time. This is done if your ligament is overstretched or partially torn. Your health care provider will apply a bandage, splint, or walking boot to keep your foot from moving until it heals. ? Using crutches or a scooter for a few weeks to avoid putting weight on your foot while it is healing. ? Major sprains can be treated with: ? Surgery. This is done if your ligament is fully torn and a procedure is needed to reconnect it to the bone. ? A cast or splint. This will be needed after surgery. A cast or splint will need to stay on your foot while it heals. ? In both types of sprains, you may need to exercise or have physical therapy to strengthen your foot. Follow these instructions at home: If you have a bandage, splint, or boot: ? Wear the bandage, splint, or boot as told by your health care provider. Remove only as told by your health care provider. ? Loosen the bandage, splint, or boot if your toes tingle, become numb, or turn cold and blue. ? Keep the bandage, splint, or boot clean and dry. If you have a cast: ? Do not stick anything inside the cast to scratch your skin. Doing that increases your risk for infection. ? Check the skin around the cast every day. Tell your health care provider about any concerns. ? You may put lotion on dry skin around the edges of the cast. Do not put lotion on the skin underneath the cast. ? Keep the cast clean and dry. Bathing ? Do not take baths, swim, or use a hot tub until your health care provider approves. Ask your health care provider if you may take showers. You may only be allowed to take sponge baths. ? If the bandage, splint, boot, or cast is not waterproof: ? Do not let it get wet. ? Cover it with a watertight covering when you take a shower. Managing pain, stiffness, and swelling ? If directed, put ice on the injured area: ? If you have a removable splint, boot, or immobilizer, remove it as told by your health care provider. ? Put ice in a plastic bag. ? Place a towel between your skin and the bag. ? Leave the ice on for 20 minutes, 2?3 times per day. ? Move your toes often to avoid stiffness and to lessen swelling. ? Raise (elevate) the injured area above the level of your heart while you are sitting or lying down. Driving ? Do not drive or operate heavy machinery while taking pain medicine. ? Ask your health care provider when it is safe to drive if you have a bandage, splint, or walking boot on your foot. Activity ? Do not use the injured foot to support your body weight until your health care provider says that you can. Use crutches or other supportive devices as directed by your health care provider. ? Ask your health care provider what activities are safe for you. Do any exercise or physical therapy as directed. ? Gradually increase how much and how far you walk until your health care provider says it is safe to return to full activity. General instructions ? If you have a cast, do not put pressure on any part of it until it is fully hardened. This may take several hours. ? Take ktud-ijd-hmdaiem and prescription medicines only as told by your health care provider. ? When you can walk without pain, wear supportive shoes that have stiff soles. Do not wear flip-flops, and do not walk barefoot. ? Keep all follow-up visits as told by your health care provider. This is important. Contact a health care provider if: ? Your pain is not controlled with medicine. ? Your bruising or swelling gets worse or does not get better with treatment. ? Your splint, boot, or cast is damaged. Get help right away if: ? You develop severe numbness or tingling in your foot. ? Your foot turns blue, white, or rosenthal, and it feels cold. Summary ? A foot sprain is an injury to one of the strong bands of tissue (ligaments) that connect and support the bones in your feet. ? Your health care provider may recommend a splint or boot for your foot to support it while it heals. In some cases, surgery may be needed. ? Physical therapy can help keep your other muscles strong until your foot gets better. This information is not intended to replace advice given to you by your health care provider. Make sure you discuss any questions you have with your health care provider. Document Released: 03/11/2003 Document Revised: 09/23/2018 Document Reviewed: 09/23/2018 [employer] Patient Education ? 2019 [employer]. Viruses or Bacteria What?s got you sick? Antibiotics only treat bacterial infections. Viral illnesses cannot be treated with antibiotics. When an antibiotic is not prescribed, ask your healthcare professional for tips on how to relieve symptoms and feel better. Usual Cause Illness Viruses Bacteria Antibiotic Needed Cold/Runny Nose NO Bronchitis/Chest Cold (in otherwise healthy children and adults) NO Whooping Cough Yes Flu NO Strep Throat Yes Sore Throat (except strep) NO Fluid in the middle ear (otitis media with effusion) NO Urinary Tract Infection Yes Antibiotics Aren?t Always the Answer www.cdc.gov/getsmart GET SMART Know When Antibiotics Work [place] Department of Health and Human Services Centers for Disease Control and Prevention June 2014 [facility] XR Foot Complete Righton XR Foot Complete Right EXAM: XR Spine Thoracic 3 Views, XR Foot Complete Right, XR Wrist Complete Right HISTORY: Pain. Fell last night. COMPARISON: Chest study dated 05/18/2019. TECHNIQUE: Three views of the thoracic spine were obtained to include AP, lateral, and directed lateral cervicothoracic junction views. FINDINGS: Vertebral body heights are grossly well-maintained. Mild disc space narrowing in the mid thoracic region. Mild anterior spurring at multiple levels. No definite acute fracture or dislocation. There are postoperative clips at the level of the right upper quadrant of the abdomen. TECHNIQUE: Four views of the right wrist were obtained. FINDINGS: On the frontal view there is faint transversely oriented linear lucency not convincingly demonstrated on the other views, though this may be artifactually created, the possibility of undisplaced navicular fracture is not excluded. No other significant focal osseous or articular abnormalities are identified. No significant soft tissue swelling. TECHNIQUE: Three views of the right foot were obtained. FINDINGS: No definite acute fracture or dislocation is seen. Small plantar calcaneal spur is noted. Mild spurring about the medial malleolar region of the tibia. No significant soft tissue swelling. IMPRESSION: Thoracic spine study fails to demonstrate definite acute fracture or dislocation. Right wrist study demonstrates faint transverse lucency at the mid navicular level on the frontal view only, though this may be artifactually created, displaced fracture of the navicular cannot be excluded. Right foot study fails to demonstrate definite acute fracture or dislocation. Follow-up as needed. Final Dictated by: Jean Carlos Cavazos MD Dictated DT/TM: 02/18/20 2:06 Signed (Electronic Signature): Jean Carlos Cavazos MD 02/18/20 2:16 pm Technologist: Gabriel EVERETT [facility] XR Spine Thoracic 3 Viewson 02-18-2020 XR Spine Thoracic 3 Views EXAM: XR Spine Thoracic 3 Views, XR Foot Complete Right, XR Wrist Complete Right HISTORY: Pain. Fell last night. COMPARISON: Chest study dated 05/18/2019. TECHNIQUE: Three views of the thoracic spine were obtained to include AP, lateral, and directed lateral cervicothoracic junction views. FINDINGS: Vertebral body heights are grossly well-maintained. Mild disc space narrowing in the mid thoracic region. Mild anterior spurring at multiple levels. No definite acute fracture or dislocation. There are postoperative clips at the level of the right upper quadrant of the abdomen. TECHNIQUE: Four views of the right wrist were obtained. FINDINGS: On the frontal view there is faint transversely oriented linear lucency not convincingly demonstrated on the other views, though this may be artifactually created, the possibility of undisplaced navicular fracture is not excluded. No other significant focal osseous or articular abnormalities are identified. No significant soft tissue swelling. TECHNIQUE: Three views of the right foot were obtained. FINDINGS: No definite acute fracture or dislocation is seen. Small plantar calcaneal spur is noted. Mild spurring about the medial malleolar region of the tibia. No significant soft tissue swelling. IMPRESSION: Thoracic spine study fails to demonstrate definite acute fracture or dislocation. Right wrist study demonstrates faint transverse lucency at the mid navicular level on the frontal view only, though this may be artifactually created, displaced fracture of the navicular cannot be excluded. Right foot study fails to demonstrate definite acute fracture or dislocation. Follow-up as needed. Final Dictated by: Jean Carlos Cavazos MD Dictated DT/TM: 02/18/20 2:06 Signed (Electronic Signature): Jean Carlos Cavazos MD 02/18/20 2:16 pm Technologist: Gabriel EVERETT [facility] XR Wrist Complete Righton XR Wrist Complete Right EXAM: XR Spine Thoracic 3 Views, XR Foot Complete Right, XR Wrist Complete Right HISTORY: Pain. Fell last night. COMPARISON: Chest study dated 05/18/2019. TECHNIQUE: Three views of the thoracic spine were obtained to include AP, lateral, and directed lateral cervicothoracic junction views. FINDINGS: Vertebral body heights are grossly well-maintained. Mild disc space narrowing in the mid thoracic region. Mild anterior spurring at multiple levels. No definite acute fracture or dislocation. There are postoperative clips at the level of the right upper quadrant of the abdomen. TECHNIQUE: Four views of the right wrist were obtained. FINDINGS: On the frontal view there is faint transversely oriented linear lucency not convincingly demonstrated on the other views, though this may be artifactually created, the possibility of undisplaced navicular fracture is not excluded. No other significant focal osseous or articular abnormalities are identified. No significant soft tissue swelling. TECHNIQUE: Three views of the right foot were obtained. FINDINGS: No definite acute fracture or dislocation is seen. Small plantar calcaneal spur is noted. Mild spurring about the medial malleolar region of the tibia. No significant soft tissue swelling. IMPRESSION: Thoracic spine study fails to demonstrate definite acute fracture or dislocation. Right wrist study demonstrates faint transverse lucency at the mid navicular level on the frontal view only, though this may be artifactually created, displaced fracture of the navicular cannot be excluded. Right foot study fails to demonstrate definite acute fracture or dislocation. Follow-up as needed. Final Dictated by: Jean Carlos Cavazos MD Dictated DT/TM: 02/18/20 2:06 Signed (Electronic Signature): Jean Carlos Cavazos MD 02/18/20 2:16 pm Technologist: Gabriel EVERETT [facility] Coding Summaryon 10-05-2019 Coding Summary CODING DATE: [facility] STATUS: Home PAYOR: Medicaid HMO ADMIT DX: REASON FOR VISIT DX: R05 Cough R06.02 Shortness of breath R06.2 Wheezing FINAL DX: PRINCIPAL: J45.901 Unspecified asthma with (acute) exacerbation SECONDARY: PYMT PROC APC STAT DESCRIPTION DOCTOR NAME DATE NOTE: The code number assigned matches the documented diagnosis and / or procedure in the patient's chart. However, the narrative phrase printed from the coding software may appear abbreviated, or result in slightly different terminology. Coded By: Dante Villarreal' Date Saved: 10/05/2019 01:09 pm [facility] Coding Summary CODING DATE: 020 [facility] STATUS: Home PAYOR: Medicaid HMO ADMIT DX: REASON FOR VISIT DX: R05 Cough R06.02 Shortness of breath R06.2 Wheezing FINAL DX: PRINCIPAL: J45.901 Unspecified asthma with (acute) exacerbation SECONDARY: PYMT PROC APC STAT DESCRIPTION DOCTOR NAME DATE NOTE: The code number assigned matches the documented diagnosis and / or procedure in the patient's chart. However, the narrative phrase printed from the coding software may appear abbreviated, or result in slightly different terminology. Coded By: Tammy Villarreal Date Saved: 10/05/2019 01:08 pm [facility] ED Clinical Summaryon 2018 ED Clinical Summary [facility] - Emergency Department [address] [place], [place] [id number] ED Clinical Summary PERSON INFORMATION Name: ANGELA HENDRICKSON Age: 33 Years Sex: FEMALE : 1985 MRN: Acct#: Visit Reason: Wheezing; Cough; DIFFICULTY BREATHING Arrival: 10/02/2019 20:04:01 Discharge: 10/02/2019 21:52:00 LOS: 000 01:48 Check In: 10/02/2019 20:04:01 Checkout:10/02/2019 21:52:00 Address: [address] [place] [id number] PCP: Provider, None PROVIDER INFORMATION Provider Role Assigned Unassigned Rasta Freeman ED 10/02/2019 20:14:06 10/02/2019 20:19:10 Macho Smith MD ED Provider 10/02/2019 20:15:53 EUGENE Ingram, Sofia ED Nurse 10/02/2019 20:36:18 VITALS INFORMATION Vital Sign Triage Latest Temperature Tympanic Temperature Temporal Artery Pulse Rate 72 bpm 78 bpm O2 Sat 98 % 98 % Respiratory Rate 20 br/min 14 br/min Blood Pressure /91 mmHg /91 mmHg MEDICAL INFORMATION Medications Given: Medication Dose Route levalbuterol 1.25 mg NEB dexamethasone 8 mg PO Allergy Information: Claritin; methylPREDNISolone PHYSICIAN DOCUMENTATION Patient: ANGELA HENDRICKSON Age: 33 years Sex: FEMALE : 1985 Associated Diagnoses: Asthma exacerbation Author: Macho Smith MD Basic Information Time seen: Date & time 10/02/2019 20:35:00. Cough, wheezing, shortness of breath History of Present Illness 33-year-old white female presents to the emergency room via private car complaining of a cough, wheezing and shortness of breath that began this morning when she awoke. Patient states that she has been coughing all day and has used both her nebulizer and her rescue inhaler with minimal relief. Patient states she used Symbicort this morning before she left the house. She states the symptoms seem to be worsening and she came to the emergency room for further evaluation. She denies fever chills, she denies nausea or vomiting. Review of Systems Constitutional symptoms: No fever, no chills. Respiratory symptoms: Shortness of breath, cough, wheezing, No sputum production, Additional review of systems information: All other systems reviewed and otherwise negative. Health Status Allergies: Allergic Reactions (Selected) Severity Not Documented Claritin- Tachycardia. MethylPREDNISolone- Hives.. Medications: (Selected) Documented Medications Documented Imodium A-D: 2 mg, PO, q4hr (int), 0 Refill(s) Lipitor 20 mg oral tablet: 20 mg = 1 tab(s), PO, Daily, 0 Refill(s) Mobic 15 mg oral tablet: 15 mg = 1 tab(s), PO, Daily, 0 Refill(s) QUEtiapine 200 mg oral tablet: 200 mg = 1 tab(s), PO, BID, 0 Refill(s) Singulair 10 mg oral tablet: 10 mg = 1 tab(s), PO, Daily, 0 Refill(s) Symbicort 160 mcg-4.5 mcg/inh: 2 puff(s), INH, BID Synthroid: 50 mcg, PO, Daily, 0 Refill(s) Zantac 150: 150 mg, PO, BID, 0 Refill(s) ZyrTEC 10 mg oral tablet: 10 mg = 1 tab(s), PO, Daily, 0 Refill(s) albuterol 0.083% inh solution: 2.5 mg, NEB, q6hr (int), 0 Refill(s) albuterol CFC free 90 mcg/inh inhalation aerosol: INH, QID, 0 Refill(s) busPIRone 7.5 mg oral tablet: 7.5 mg = 1 tab(s), PO, BID, 0 Refill(s) diclofenac: 75 mg, PO, 0 Refill(s) gabapentin 300 mg oral capsule: 300 mg = 1 cap(s), PO, TID, 0 Refill(s) hydrOXYzine: 25 mg, 0 Refill(s) hydroCHLOROthiazide: 12.5 mg, PO, Daily, 0 Refill(s) lisinopril 20 mg oral tablet: 20 mg = 1 tab(s), PO, Daily, 0 Refill(s) medroxyPROGESTERone 400 mg/mL intramuscular suspension: 400 mg = 1 mL, IM, qWeek, 1 mL, 0 Refill(s) sertraline: PO, Daily, 0 Refill(s). Past Medical/ Family/ Social History Family history: No family history items have been selected or recorded.. Social history: Social & Psychosocial Habits Alcohol 03/21/2019 Alcohol Use: Never Substance Abuse 03/21/2019 Substance use: Never Tobacco 09/04/2019 Smoking tobacco use: Never (less than 100 in l Electronic Cigarette/Vaping 09/04/2019 Electronic Cigarette Use: Never . Problem list: Active Problems (2) Asthma Hypothyroid . Physical Examination Vital Signs Vital Signs 10/02/2019 20:46 EST Peripheral Pulse Rate 93 bpm Peripheral Pulse Rate 94 bpm Respiratory Rate 14 br/min Respiratory Rate 14 br/min 10/02/2019 20:36 EST Temperature Temporal 36.2 DegC LOW Peripheral Pulse Rate 72 bpm Respiratory Rate 20 br/min Systolic Blood Pressure 160 mmHg HI Diastolic Blood Pressure 91 mmHg HI SpO2 98 % Oxygen Therapy Room air . Per nurse's notes. General: Alert, no acute distress. Skin: Warm, dry, pink. Head: Normocephalic, atraumatic. Neck: Trachea midline. Eye: Normal conjunctiva. Ears, nose, mouth and throat: Oral mucosa moist. Cardiovascular: Normal peripheral perfusion. Respiratory: Respirations are non-labored, Scattered wheezes. Gastrointestinal: Soft. Back: Normal range of motion. Musculoskeletal: Normal ROM, normal strength. Neurological: Alert and oriented to person, place, time, and situation, normal motor observed, normal speech observed. Psychiatric: Cooperative, appropriate mood & affect. Medical Decision Making Differential Diagnosis:: Upper respiratory infection, asthma. Differential Diagnosis: Wheezing, asthma exacerbation. Rationale: Patient treated with Xopenex aerosol and single dose oral Decadron here in the emergency room.. Impression and Plan Diagnosis Asthma exacerbation ([id number] J45.901, Discharge, Medical) Plan Condition: Improved, Stable. Disposition: Discharged: to home. Patient was given the following educational materials: Asthma, Adult, [id number], Asthma, Adult, [id number]. Follow up with: None Provider Within 3 to 5 days. Counseled: Patient, Regarding diagnosis, Regarding treatment plan, Patient indicated understanding of instructions. DISCHARGE INFORMATION: Discharge Disposition: Home Discharge Location: Home PATIENT EDUCATION INFORMATION Instructions: Asthma, Adult, [id number] Follow-Up: With: Address: When: None Provider Within 3 to 5 days DIAGNOSIS: Asthma exacerbation Patient Understands: Yes - Patient/family/caregive r verbalizes understanding of instructions given Comment: [facility] ED Note - Physicianon 2018 ED Note - Physician Patient: ANGELA HENDRICKSON Age: 33 years Sex: FEMALE : 1985 Associated Diagnoses: Asthma exacerbation Author: Macho Smith MD Basic Information Time seen: Date & time 10/02/2019 20:35:00. Cough, wheezing, shortness of breath History of Present Illness 33-year-old white female presents to the emergency room via private car complaining of a cough, wheezing and shortness of breath that began this morning when she awoke. Patient states that she has been coughing all day and has used both her nebulizer and her rescue inhaler with minimal relief. Patient states she used Symbicort this morning before she left the house. She states the symptoms seem to be worsening and she came to the emergency room for further evaluation. She denies fever chills, she denies nausea or vomiting. Review of Systems Constitutional symptoms: No fever, no chills. Respiratory symptoms: Shortness of breath, cough, wheezing, No sputum production, Additional review of systems information: All other systems reviewed and otherwise negative. Health Status Allergies: Allergic Reactions (Selected) Severity Not Documented Claritin- Tachycardia. MethylPREDNISolone- Hives.. Medications: (Selected) Documented Medications Documented Imodium A-D: 2 mg, PO, q4hr (int), 0 Refill(s) Lipitor 20 mg oral tablet: 20 mg = 1 tab(s), PO, Daily, 0 Refill(s) Mobic 15 mg oral tablet: 15 mg = 1 tab(s), PO, Daily, 0 Refill(s) QUEtiapine 200 mg oral tablet: 200 mg = 1 tab(s), PO, BID, 0 Refill(s) Singulair 10 mg oral tablet: 10 mg = 1 tab(s), PO, Daily, 0 Refill(s) Symbicort 160 mcg-4.5 mcg/inh: 2 puff(s), INH, BID Synthroid: 50 mcg, PO, Daily, 0 Refill(s) Zantac 150: 150 mg, PO, BID, 0 Refill(s) ZyrTEC 10 mg oral tablet: 10 mg = 1 tab(s), PO, Daily, 0 Refill(s) albuterol 0.083% inh solution: 2.5 mg, NEB, q6hr (int), 0 Refill(s) albuterol CFC free 90 mcg/inh inhalation aerosol: INH, QID, 0 Refill(s) busPIRone 7.5 mg oral tablet: 7.5 mg = 1 tab(s), PO, BID, 0 Refill(s) diclofenac: 75 mg, PO, 0 Refill(s) gabapentin 300 mg oral capsule: 300 mg = 1 cap(s), PO, TID, 0 Refill(s) hydrOXYzine: 25 mg, 0 Refill(s) hydroCHLOROthiazide: 12.5 mg, PO, Daily, 0 Refill(s) lisinopril 20 mg oral tablet: 20 mg = 1 tab(s), PO, Daily, 0 Refill(s) medroxyPROGESTERone 400 mg/mL intramuscular suspension: 400 mg = 1 mL, IM, qWeek, 1 mL, 0 Refill(s) sertraline: PO, Daily, 0 Refill(s). Past Medical/ Family/ Social History Family history: No family history items have been selected or recorded.. Social history: Social & Psychosocial Habits Alcohol 03/21/2019 Alcohol Use: Never Substance Abuse 03/21/2019 Substance use: Never Tobacco 09/04/2019 Smoking tobacco use: Never (less than 100 in l Electronic Cigarette/Vaping 09/04/2019 Electronic Cigarette Use: Never . Problem list: Active Problems (2) Asthma Hypothyroid . Physical Examination Vital Signs Vital Signs 10/02/2019 20:46 EST Peripheral Pulse Rate 93 bpm Peripheral Pulse Rate 94 bpm Respiratory Rate 14 br/min Respiratory Rate 14 br/min 10/02/2019 20:36 EST Temperature Temporal 36.2 DegC LOW Peripheral Pulse Rate 72 bpm Respiratory Rate 20 br/min Systolic Blood Pressure 160 mmHg HI Diastolic Blood Pressure 91 mmHg HI SpO2 98 % Oxygen Therapy Room air . Per nurse's notes. General: Alert, no acute distress. Skin: Warm, dry, pink. Head: Normocephalic, atraumatic. Neck: Trachea midline. Eye: Normal conjunctiva. Ears, nose, mouth and throat: Oral mucosa moist. Cardiovascular: Normal peripheral perfusion. Respiratory: Respirations are non-labored, Scattered wheezes. Gastrointestinal: Soft. Back: Normal range of motion. Musculoskeletal: Normal ROM, normal strength. Neurological: Alert and oriented to person, place, time, and situation, normal motor observed, normal speech observed. Psychiatric: Cooperative, appropriate mood & affect. Medical Decision Making Differential Diagnosis:: Upper respiratory infection, asthma. Differential Diagnosis: Wheezing, asthma exacerbation. Rationale: Patient treated with Xopenex aerosol and single dose oral Decadron here in the emergency room.. Impression and Plan Diagnosis Asthma exacerbation ([id number] J45.901, Discharge, Medical) Plan Condition: Improved, Stable. Disposition: Discharged: to home. Patient was given the following educational materials: Asthma, Adult, Fapy-hd-Mfma, Asthma, Adult, Lfij-bt-Dieh. Follow up with: None Provider Within 3 to 5 days. Counseled: Patient, Regarding diagnosis, Regarding treatment plan, Patient indicated understanding of instructions. [Electronically Signed on: 10/02/2019 21:30 EST] Macho Smith MD [Verified on: 10/02/2019 21:30 EST] Macho Smith MD [facility] ED Patient Education Noteon 10-02-2019 ED Patient Education Note Education Materials Immunology Asthma, Adult Asthma is a long-term (chronic) condition in which the airways get tight and narrow. The airways are the breathing passages that lead from the nose and mouth down into the lungs. A person with asthma will have times when symptoms get worse. These are called asthma attacks. They can cause coughing, whistling sounds when you breathe (wheezing), shortness of breath, and chest pain. They can make it hard to breathe. There is no cure for asthma, but medicines and lifestyle changes can help control it. There are many things that can bring on an asthma attack or make asthma symptoms worse (triggers). Common triggers include: ? Mold. ? Dust. ? Cigarette smoke. ? Cockroaches. ? Things that can cause allergy symptoms (allergens). These include animal skin flakes (dander) and pollen from trees or grass. ? Things that pollute the air. These may include household die repair machinist, wood smoke, smog, or chemical odors. ? Cold air, weather changes, and wind. ? Crying or laughing hard. ? Stress. ? Certain medicines or drugs. ? Certain foods such as dried fruit, potato chips, and grape juice. ? Infections, such as a cold or the flu. ? Certain medical conditions or diseases. ? Exercise or tiring activities. Asthma may be treated with medicines and by staying away from the things that cause asthma attacks. Types of medicines may include: ? Controller medicines. These help prevent asthma symptoms. They are usually taken every day. ? Fast-acting reliever or rescue medicines. These quickly relieve asthma symptoms. They are used as needed and provide short-term relief. ? Allergy medicines if your attacks are brought on by allergens. ? Medicines to help control the body's defense (immune) system. Follow these instructions at home: Avoiding triggers in your home ? Change your heating and air conditioning filter often. ? Limit your use of fireplaces and wood stoves. ? Get rid of pests (such as roaches and mice) and their droppings. ? Throw away plants if you see mold on them. ? Clean your floors. Dust regularly. Use cleaning products that do not smell. ? Have someone vacuum when you are not home. Use a vacuum beer coil cleaner with a HEPA filter if possible. ? Replace carpet with wood, tile, or vinyl leila. Carpet can trap animal skin flakes and dust. ? Use allergy-proof pillows, mattress covers, and box spring covers. ? Wash bed sheets and blankets every week in hot water. Dry them in a dryer. ? Keep your bedroom free of any triggers.? ? Avoid pets and keep windows closed when things that cause allergy symptoms are in the air. ? Use blankets that are made of polyester or cotton. ? Clean bathrooms and suzy with bleach. If possible, have someone repaint the ackerman in these rooms with mold-resistant paint. Keep out of the rooms that are being cleaned and painted. ? Wash your hands often with soap and water. If soap and water are not available, use hand parts counter sales person. ? Do not allow anyone to smoke in your home. General instructions ? Take qvkw-ynz-bnlootp and prescription medicines only as told by your doctor. ? Talk with your doctor if you have questions about how or when to take your medicines. ? Make note if you need to use your medicines more often than usual. ? Do not use any products that contain nicotine or tobacco, such as cigarettes and e-cigarettes. If you need help quitting, ask your doctor. ? Stay away from secondhand smoke. ? Avoid doing things outdoors when allergen counts are high and when air quality is low. ? Wear a ski mask when doing outdoor activities in the winter. The mask should cover your nose and mouth. Exercise indoors on cold days if you can. ? Warm up before you exercise. Take time to cool down after exercise. ? Use a peak flow meter as told by your doctor. A peak flow meter is a tool that measures how well the lungs are working. ? Keep track of the peak flow meter's readings. Write them down. ? Follow your asthma action plan. This is a written plan for taking care of your asthma and treating your attacks. ? Make sure you get all the shots (vaccines) that your doctor recommends. Ask your doctor about a flu shot and a pneumonia shot. ? Keep all follow-up visits as told by your doctor. This is important. Contact a doctor if: ? You have wheezing, shortness of breath, or a cough even while taking medicine to prevent attacks. ? The mucus you cough up (sputum) is thicker than usual. ? The mucus you cough up changes from clear or white to yellow, green, rosenthal, or bloody. ? You have problems from the medicine you are taking, such as: ? A rash. ? Itching. ? Swelling. ? Trouble breathing. ? You need reliever medicines more than 2?3 times a week. ? Your peak flow reading is still at 50?79% of your personal best after following the action plan for 1 hour. ? You have a fever. Get help right away if: ? You seem to be worse and are not responding to medicine during an asthma attack. ? You are short of breath even at rest. ? You get short of breath when doing very little activity. ? You have trouble eating, drinking, or talking. ? You have chest pain or tightness. ? You have a fast heartbeat. ? Your lips or fingernails start to turn blue. ? You are light-headed or dizzy, or you faint. ? Your peak flow is less than 50% of your personal best. ? You feel too tired to breathe normally. Summary ? Asthma is a long-term (chronic) condition in which the airways get tight and narrow. An asthma attack can make it hard to breathe. ? Asthma cannot be cured, but medicines and lifestyle changes can help control it. ? Make sure you understand how to avoid triggers and how and when to use your medicines. This information is not intended to replace advice given to you by your health care provider. Make sure you discuss any questions you have with your health care provider. Document Released: 03/07/2009 Document Revised: 10/24/2017 Document Reviewed: 10/24/2017 [employer] Interactive Patient Education ? 2019 [employer]. Normal [facility] ED Patient Summaryon 019 ED Patient Summary [facility] - Emergency Department [address] [id number] PATIENT DISCHARGE INSTRUCTIONS Patient Information Name: ANGELA HENDRICKSON Age: 33 Years Date of : 1985 Reason For Visit: Wheezing; Cough; DIFFICULTY BREATHING Arrival Time: 10/02/2019 20:04:01 Primary Care Physician: Provider, None Attending Physician: Macho Smith MD Comment: Visit Diagnosis: Diagnoses This Visit Asthma exacerbation (J45.901) Cough ([id number]) Wheezing ([id number]) Prescription Information: If you have been given a prescription for narcotics, seek immediate medical attention if you have any difficulty breathing or any sudden status changes such as confusion and sleepiness. If you or anyone you know is experiencing suicidal thoughts, mental health, alcohol and/or drug addiction problems; contact the [facility] 25/04 Crisis Hotline -Text 4HGNY xu 771612. If you received any narcotics, sedation, or any other medication that causes drowsiness for the next 24 hours, unless otherwise directed: ? Do not drive a car. ? Do not operate machinery such as power tools, lawn mowers, drills, sewing machines, or stoves ? Avoid alcoholic beverages and drugs for allergies, nerves, or sleep ? Do not make important personal or business decisions or sign any legal documents With: Address: When: None Provider Within 3 to 5 days Medication Information: The exam and treatment you received today in the [facility] Emergency Department were for an urgent problem and are not intended as complete care. It is important for you to follow up with a doctor, nurse practitioner, or physician?s assistant professor of surgery for ongoing care. If your symptoms become worse or you do not improve as expected and you are unable to reach your usual health care provider, you should return to the Emergency Department, we are available 24 hours a day. For those patients who have received Radiology results, the interpretation of your X-ray as given to you by our Emergency Department physician is only a preliminary report. The Radiologist will review your films and if there is a change in the diagnosis you will be notified by phone. Please make sure you have provided a working phone number so we can reach you if necessary. In the event that you had a lab culture while you were a patient in the Emergency Department, you will be notified by phone if there is a need to change your antibiotic. Please make sure you have provided a working phone number so we can reach you if necessary. [facility] Emergency Department has provided you with a complete list of medications post discharge. Please inform your architectural drafter/provider of your visit and for further instruction on these medications. Any specific questions regarding your chronic medications and dosages should be discussed with your primary care physician(s) and/or pharmacist. Medications to Continue That Have Not Changed Other Medications albuterol (albuterol 0.083% inh solution) 2.5 Milligram Nebulized inhalation every 6 hours. albuterol (albuterol CFC free 90 mcg/inh inhalation aerosol) Inhalation 4 times a day. atorvastatin (Lipitor 20 mg oral tablet) 1 tab(s) Oral every day. budesonide-formoterol (Symbicort 160 mcg-4.5 mcg/inh) 2 puff(s) Inhalation 2 times a day. busPIRone (busPIRone 7.5 mg oral tablet) 1 tab(s) Oral 2 times a day. cetirizine (ZyrTEC 10 mg oral tablet) 1 tab(s) Oral every day. diclofenac 75 Milligram Oral. gabapentin (gabapentin 300 mg oral capsule) 1 cap(s) Oral 3 times a day. hydroCHLOROthiazide 12.5 Milligram Oral every day. hydrOXYzine 25 Milligram. levothyroxine (Synthroid) 50 Microgram Oral every day. lisinopril (lisinopril 20 mg oral tablet) 1 tab(s) Oral every day. loperamide (Imodium A-D) 2 Milligram Oral every 4 hours. medroxyPROGESTERone (medroxyPROGESTERone 400 mg/mL intramuscular suspension) 1 Milliliter Intramuscular every week. meloxicam (Mobic 15 mg oral tablet) 1 tab(s) Oral every day. montelukast (Singulair 10 mg oral tablet) 1 tab(s) Oral every day. QUEtiapine (QUEtiapine 200 mg oral tablet) 1 tab(s) Oral 2 times a day. raNITIdine (Zantac 150) 150 Milligram Oral 2 times a day. sertraline Oral every day. Visit Information Allergies: Substance Reaction Symptoms Type Comments Claritin Tachycardia Drug methylPREDNISolone Hives Drug Vital Signs: Vitals and Measurements this Visit (last charted value for your 10/02/2019 visit) Vital Signs This Visit Temperature Temporal: 36.2 DegC Peripheral Pulse Rate: 78 bpm Respiratory Rate: 14 br/min Systolic Blood Pressure: 123 mmHg Diastolic Blood Pressure: 78 mmHg SpO2: 98 % Oxygen Therapy: Room air Measurements This Visit Height/Length Dosin.860 cm Height/Length Estimated: 149.860 cm Weight Dosin.420 kg Weight Estimated: 103.420 kg Problems List: Problem Onset Comments Asthma Hypothyroid Patient Education Asthma, Adult Asthma is a long-term (chronic) condition in which the airways get tight and narrow. The airways are the breathing passages that lead from the nose and mouth down into the lungs. A person with asthma will have times when symptoms get worse. These are called asthma attacks. They can cause coughing, whistling sounds when you breathe (wheezing), shortness of breath, and chest pain. They can make it hard to breathe. There is no cure for asthma, but medicines and lifestyle changes can help control it. There are many things that can bring on an asthma attack or make asthma symptoms worse (triggers). Common triggers include: ? Mold. ? Dust. ? Cigarette smoke. ? Cockroaches. ? Things that can cause allergy symptoms (allergens). These include animal skin flakes (dander) and pollen from trees or grass. ? Things that pollute the air. These may include household die repair machinist, wood smoke, smog, or chemical odors. ? Cold air, weather changes, and wind. ? Crying or laughing hard. ? Stress. ? Certain medicines or drugs. ? Certain foods such as dried fruit, potato chips, and grape juice. ? Infections, such as a cold or the flu. ? Certain medical conditions or diseases. ? Exercise or tiring activities. Asthma may be treated with medicines and by staying away from the things that cause asthma attacks. Types of medicines may include: ? Controller medicines. These help prevent asthma symptoms. They are usually taken every day. ? Fast-acting reliever or rescue medicines. These quickly relieve asthma symptoms. They are used as needed and provide short-term relief. ? Allergy medicines if your attacks are brought on by allergens. ? Medicines to help control the body's defense (immune) system. Follow these instructions at home: Avoiding triggers in your home ? Change your heating and air conditioning filter often. ? Limit your use of fireplaces and wood stoves. ? Get rid of pests (such as roaches and mice) and their droppings. ? Throw away plants if you see mold on them. ? Clean your floors. Dust regularly. Use cleaning products that do not smell. ? Have someone vacuum when you are not home. Use a vacuum beer coil cleaner with a HEPA filter if possible. ? Replace carpet with wood, tile, or vinyl leila. Carpet can trap animal skin flakes and dust. ? Use allergy-proof pillows, mattress covers, and box spring covers. ? Wash bed sheets and blankets every week in hot water. Dry them in a dryer. ? Keep your bedroom free of any triggers.? ? Avoid pets and keep windows closed when things that cause allergy symptoms are in the air. ? Use blankets that are made of polyester or cotton. ? Clean bathrooms and suzy with bleach. If possible, have someone repaint the ackerman in these rooms with mold-resistant paint. Keep out of the rooms that are being cleaned and painted. ? Wash your hands often with soap and water. If soap and water are not available, use hand parts counter sales person. ? Do not allow anyone to smoke in your home. General instructions ? Take xkrz-vxk-yxecwrj and prescription medicines only as told by your doctor. ? Talk with your doctor if you have questions about how or when to take your medicines. ? Make note if you need to use your medicines more often than usual. ? Do not use any products that contain nicotine or tobacco, such as cigarettes and e-cigarettes. If you need help quitting, ask your doctor. ? Stay away from secondhand smoke. ? Avoid doing things outdoors when allergen counts are high and when air quality is low. ? Wear a ski mask when doing outdoor activities in the winter. The mask should cover your nose and mouth. Exercise indoors on cold days if you can. ? Warm up before you exercise. Take time to cool down after exercise. ? Use a peak flow meter as told by your doctor. A peak flow meter is a tool that measures how well the lungs are working. ? Keep track of the peak flow meter's readings. Write them down. ? Follow your asthma action plan. This is a written plan for taking care of your asthma and treating your attacks. ? Make sure you get all the shots (vaccines) that your doctor recommends. Ask your doctor about a flu shot and a pneumonia shot. ? Keep all follow-up visits as told by your doctor. This is important. Contact a doctor if: ? You have wheezing, shortness of breath, or a cough even while taking medicine to prevent attacks. ? The mucus you cough up (sputum) is thicker than usual. ? The mucus you cough up changes from clear or white to yellow, green, rosenthal, or bloody. ? You have problems from the medicine you are taking, such as: ? A rash. ? Itching. ? Swelling. ? Trouble breathing. ? You need reliever medicines more than 2?3 times a week. ? Your peak flow reading is still at 50?79% of your personal best after following the action plan for 1 hour. ? You have a fever. Get help right away if: ? You seem to be worse and are not responding to medicine during an asthma attack. ? You are short of breath even at rest. ? You get short of breath when doing very little activity. ? You have trouble eating, drinking, or talking. ? You have chest pain or tightness. ? You have a fast heartbeat. ? Your lips or fingernails start to turn blue. ? You are light-headed or dizzy, or you faint. ? Your peak flow is less than 50% of your personal best. ? You feel too tired to breathe normally. Summary ? Asthma is a long-term (chronic) condition in which the airways get tight and narrow. An asthma attack can make it hard to breathe. ? Asthma cannot be cured, but medicines and lifestyle changes can help control it. ? Make sure you understand how to avoid triggers and how and when to use your medicines. This information is not intended to replace advice given to you by your health care provider. Make sure you discuss any questions you have with your health care provider. Document Released: 03/07/2009 Document Revised: 10/24/2017 Document Reviewed: 10/24/2017 [employer] Interactive Patient Education ? 2019 [employer]. Viruses or Bacteria What?s got you sick? Antibiotics only treat bacterial infections. Viral illnesses cannot be treated with antibiotics. When an antibiotic is not prescribed, ask your healthcare professional for tips on how to relieve symptoms and feel better. Usual Cause Illness Viruses Bacteria Antibiotic Needed Cold/Runny Nose NO Bronchitis/Chest Cold (in otherwise healthy children and adults) NO Whooping Cough Yes Flu NO Strep Throat Yes Sore Throat (except strep) NO Fluid in the middle ear (otitis media with effusion) NO Urinary Tract Infection Yes Antibiotics Aren?t Always the Answer www.cdc.gov/getsmart GET SMART Know When Antibiotics Work [place] Department of Health and Human Services Centers for Disease Control and Prevention June [address] [facility] C Throaton 09-06-2019 C Throat Ordered by Discern. Normal throat leda isolated No pathogens isolated Normal [facility] Comment on above: Performed By: #### [id number] ####[facility] (DEFAULT)[address] [place] [address] Coding Summaryon 09-06-2019 Coding Summary CODING DATE: 019 [facility] STATUS: Home PAYOR: Medicaid HMO ADMIT DX: REASON FOR VISIT DX: J02.9 Acute pharyngitis, unspecified H92.03 Otalgia, bilateral FINAL DX: PRINCIPAL: J35.8 Other chronic diseases of tonsils and adenoids SECONDARY: J02.8 Acute pharyngitis due to other specified organisms PYMT PROC APC STAT DESCRIPTION DOCTOR NAME DATE NOTE: The code number assigned matches the documented diagnosis and / or procedure in the patient's chart. However, the narrative phrase printed from the coding software may appear abbreviated, or result in slightly different terminology. Coded By: Tammy Villarreal Date Saved: 09/06/2019 03:18 pm [facility] Coding Summary CODING DATE: 019 [facility] STATUS: Home PAYOR: Medicaid HMO ADMIT DX: REASON FOR VISIT DX: J02.9 Acute pharyngitis, unspecified H92.03 Otalgia, bilateral FINAL DX: PRINCIPAL: J35.8 Other chronic diseases of tonsils and adenoids SECONDARY: J02.8 Acute pharyngitis due to other specified organisms PYMT PROC APC STAT DESCRIPTION DOCTOR NAME DATE NOTE: The code number assigned matches the documented diagnosis and / or procedure in the patient's chart. However, the narrative phrase printed from the coding software may appear abbreviated, or result in slightly different terminology. Coded By: Tammy Villarreal Date Saved: 09/06/2019 03:17 pm [facility] ED Clinical Summaryon 2018 ED Clinical Summary [facility] - Emergency Department [address] [place] [address] ED Clinical Summary PERSON INFORMATION Name: ANGELA HENDRICKSON Age: 33 Years Sex: FEMALE : 1985 MRN: Acct#: Visit Reason: Throat pain - Adult; SORE THROAT, BIALTERAL EAR PAIN Arrival: 09/04/2019 11:12:00 Discharge: 09/04/2019 12:07:00 LOS: 000 00:55 Check In: 09/04/2019 11:12:00 Checkout:09/04/2019 12:07:00 Address: [address] [place] [address] PCP: Provider, None PROVIDER INFORMATION Provider Role Assigned Unassigned Luis Enrique Clark PA-C ED PA 09/04/2019 11:13:06 Luna Tran INSPECTOR COLD WORKING Nurse 09/04/2019 11:31:06 VITALS INFORMATION Vital Sign Triage Latest Temperature Tympanic Temperature Temporal Artery Pulse Rate 91 bpm 91 bpm O2 Sat 95 % 95 % Respiratory Rate 16 br/min 16 br/min Blood Pressure /86 mmHg /86 mmHg MEDICAL INFORMATION Medications Given: Allergy Information: Claritin; methylPREDNISolone PHYSICIAN DOCUMENTATION DISCHARGE INFORMATION: Discharge Disposition: Home Discharge Location: Home PATIENT EDUCATION INFORMATION Instructions: Sore Throat; Pharyngitis Follow-Up: With: Address: When: Follow up with primary care provider Within 3 to 5 days Comments: Please follow up with your primary care provider in 3 to 5 days. Please call their office this afternoon to schedule a follow-up appointment. You were seen and evaluated here in the emergency department for sore throat and bilateral ear discomfort. You had a rapid strep completed today which is negative. Did appear in your strep swab that you possibly had a tonsil stone on the left. This may be further evaluated by bearing press machine operator in which you are given information to follow-up with Dr. Evans. Continue Tylenol ibuprofen or Chloraseptic [place] for discomfort. Continue fluids rest. You may return here to the emergency department develop any fever, chills or any other worsening or concerning symptoms. With: Address: When: Tobi Evans [address] [place], [place] [id number] [facility] () Within 3 to 5 days DIAGNOSIS: Tonsil stone; Viral pharyngitis Patient Understands: Yes - Patient/family/caregive r verbalizes understanding of instructions given Comment: [facility] ED Note - Physicianon 2018 ED Note - Physician Patient: ANGELA HENDRICKSON Age: 33 years Sex: FEMALE : 1985 Associated Diagnoses: Tonsil stone; Viral pharyngitis Author: Luis Enrique Clark PA-C Basic Information Time seen: Date & time 09/04/2019 11:14:00. History source: Patient. Arrival mode: Private vehicle. History limitation: None. History of Present Illness 33-year-old female presents here to the emergency department this morning with chief complaint of sore throat and bilateral ear discomfort. Patient states she was seen in urgent care on Tuesday of last week when her sore throat developed. States at that time she was checked for rapid strep and had concern for that. States that time a rapid strep was negative and told her it was most likely viral to continue fluids Tylenol and rest. Patient states she does have a history of sleep apnea however has not been using her CPAP machine because it makes her throat very very dry. She denies any fever or chills denies any nausea vomiting denies headache. States bilateral ears are popping like there is fluid in them but denies pain denies any nasal congestion rhinorrhea. Denies any cough or wheezing. Denies any difficulty swallowing. States she woke around midnight early this morning which she states her throat was very dry and she felt it was very swollen. States she forced herself to drink something which she states did help some. States she has been taking Aleve at home for throat discomfort and which has been helping some however had concern with the increase in throat discomfort. She denies any acute fever or chills. She states medication allergy to Claritin and methylprednisolone. She has no other concerns at this time. Review of Systems Constitutional symptoms: No fever, no chills, no sweats, no weakness, no fatigue. Skin symptoms: No rash, no pruritus, no abrasions. Eye symptoms: Vision unchanged, no pain, no discharge, no diplopia, no blurred vision. ENMT symptoms: Ear pain, sore throat, no nasal congestion, no sinus pain. Respiratory symptoms: No shortness of breath, no cough. Cardiovascular symptoms: No chest pain, no palpitations, no tachycardia, no syncope, no diaphoresis, no peripheral edema. Gastrointestinal symptoms: No abdominal pain, no nausea, no vomiting, no diarrhea, no constipation. Musculoskeletal symptoms: No back pain, no Muscle pain, no Joint pain. Neurologic symptoms: No headache, no dizziness, no altered level of consciousness, no numbness, no tingling, no weakness. Additional review of systems information: All other systems reviewed and otherwise negative. Health Status Allergies: Allergic Reactions (Selected) Severity Not Documented Claritin- Tachycardia. MethylPREDNISolone- Hives.. Medications: (Selected) Documented Medications Documented Imodium A-D: 2 mg, PO, q4hr (int), 0 Refill(s) Lipitor 20 mg oral tablet: 20 mg = 1 tab(s), PO, Daily, 0 Refill(s) Mobic 15 mg oral tablet: 15 mg = 1 tab(s), PO, Daily, 0 Refill(s) QUEtiapine 200 mg oral tablet: 200 mg = 1 tab(s), PO, BID, 0 Refill(s) Singulair 10 mg oral tablet: 10 mg = 1 tab(s), PO, Daily, 0 Refill(s) Symbicort 160 mcg-4.5 mcg/inh: 2 puff(s), INH, BID Synthroid: 50 mcg, PO, Daily, 0 Refill(s) Zantac 150: 150 mg, PO, BID, 0 Refill(s) ZyrTEC 10 mg oral tablet: 10 mg = 1 tab(s), PO, Daily, 0 Refill(s) albuterol 0.083% inh solution: 2.5 mg, NEB, q6hr (int), 0 Refill(s) albuterol CFC free 90 mcg/inh inhalation aerosol: INH, QID, 0 Refill(s) busPIRone 7.5 mg oral tablet: 7.5 mg = 1 tab(s), PO, BID, 0 Refill(s) diclofenac: 75 mg, PO, 0 Refill(s) gabapentin 300 mg oral capsule: 300 mg = 1 cap(s), PO, TID, 0 Refill(s) hydrOXYzine: 25 mg, 0 Refill(s) hydroCHLOROthiazide: 12.5 mg, PO, Daily, 0 Refill(s) lisinopril 20 mg oral tablet: 20 mg = 1 tab(s), PO, Daily, 0 Refill(s) medroxyPROGESTERone 400 mg/mL intramuscular suspension: 400 mg = 1 mL, IM, qWeek, 1 mL, 0 Refill(s) sertraline: PO, Daily, 0 Refill(s). Past Medical/ Family/ Social History Social history: Social & Psychosocial Habits Alcohol 03/21/2019 Alcohol Use: Never Substance Abuse 03/21/2019 Substance use: Never Tobacco 09/04/2019 Smoking tobacco use: Never (less than 100 in l Electronic Cigarette/Vaping 09/04/2019 Electronic Cigarette Use: Never . Physical Examination General: Alert, no acute distress. Skin: Warm, dry, intact, no pallor, no rash. Head: Normocephalic, atraumatic. Neck: Supple, no tenderness. Eye: Pupils are equal, round and reactive to light, extraocular movements are intact, normal conjunctiva. Ears, nose, mouth and throat: Tympanic membranes clear, oral mucosa moist, Bilateral tympanic membranes within normal limits. No erythema or bulging. Bilateral tonsillar erythema without exudate.. Cardiovascular: Regular rate and rhythm, No murmur, Normal peripheral perfusion, No edema, S1, S2, regular rhythm. No murmurs gallops or rubs.. Respiratory: Lungs are clear to auscultation, respirations are non-labored, breath sounds are equal, Symmetrical chest wall expansion, Lung sounds are clear bilaterally. No wheezing rhonchi or crackles on exam.. Gastrointestinal: Soft, Nontender, Non distended, Normal bowel sounds, No organomegaly. Neurological: Alert and oriented to person, place, time, and situation, No focal neurological deficit observed, normal sensory observed, normal motor observed, normal speech observed, normal coordination observed, Normal sensory, motor, speech, coordination is observed on exam of the patient.. Lymphatics: No lymphadenopathy, No preauricular or cervical lymphadenopathy.. Psychiatric: Cooperative, appropriate mood & affect, normal judgment, non-suicidal. Medical Decision Making Orders Launch Orders Laboratory: Rapid Strep (Order): Throat, 09/04/2019 11:24 EST, Stat collect, Nurse collect. Results review: Lab results : Lab View 09/04/2019 11:25 EST Streptococcus A Negative . Reexamination/ Reevaluation 11:49 patient's rapid strep is negative. Will speak with patient regards to a tonsil stone that was noted on the left. Patient will most likely require referral to ENT for follow-up for I do believe patient symptoms are viral she does have ear popping as well. Patient understands continue fluids and rest. Understands continue Tylenol or ibuprofen as needed for throat discomfort understands that she may return here to the emergency department for any worsening or concerning symptoms. Patient agrees and understands plan of care. Impression and Plan Diagnosis Tonsil stone (JSP05-ND J35.8, Discharge, Medical) Viral pharyngitis (EKH64-[place] J02.9, Discharge, Medical) Plan Condition: Stable. Disposition: Discharged: Time 09/04/2019 11:51:00, to home. Patient was given the following educational materials: Pharyngitis, Sore Throat, Sore Throat, Pharyngitis. Follow up with: ; Tobi Evans Within 3 to 5 days; Follow up with primary care provider Within 3 to 5 days Please follow up with your primary care provider in 3 to 5 days. Please call their office this afternoon to schedule a follow-up appointment. You were seen and evaluated here in the emergency department for sore throat and bilateral ear discomfort. You had a rapid strep completed today which is negative. Did appear in your strep swab that you possibly had a tonsil stone on the left. This may be further evaluated by bearing press machine operator in which you are given information to follow-up with Dr. Evans. Continue Tylenol ibuprofen or Chloraseptic [place] for discomfort. Continue fluids rest. You may return here to the emergency department develop any fever, chills or any other worsening or concerning symptoms.. Counseled: Patient, Regarding diagnosis, Regarding diagnostic results, Regarding treatment plan, Patient indicated understanding of instructions. [Electronically Signed on: 09/04/2019 12:15 EST] Luis Enrique Clark PA-C [Verified on: 09/04/2019 12:15 EST] Luis Enrique Clark PA-C [facility] ED Patient Education Noteon 09-04-2019 ED Patient Education Note Education Materials Infectious Disease Sore Throat A sore throat is pain, burning, irritation, or scratchiness in the throat. When you have a sore throat, you may feel pain or tenderness in your throat when you swallow or talk. Many things can cause a sore throat, including: ? An infection. ? Seasonal allergies. ? Dryness in the air. ? Irritants, such as smoke or pollution. ? Gastroesophageal reflux disease (GERD). ? A tumor. A sore throat is often the first sign of another sickness. It may happen with other symptoms, such as coughing, sneezing, fever, and swollen neck glands. Most sore throats go away without medical treatment. Follow these instructions at home: ? Take hexs-sri-roeiksh medicines only as told by your health care provider. ? Drink enough fluids to keep your urine clear or pale yellow. ? Rest as needed. ? To help with pain, try: ? Sipping warm liquids, such as broth, herbal tea, or warm water. ? Eating or drinking cold or frozen liquids, such as frozen ice pops. ? Gargling with a salt-water mixture 3?4 times a day or as needed. To make a salt-water mixture, completely dissolve ??1 tsp of salt in 1 cup of warm water. ? Sucking on hard candy or throat lozenges. ? Putting a cool-mist humidifier in your bedroom at night to moisten the air. ? Sitting in the bathroom with the door closed for 5?10 minutes while you run hot water in the shower. ? Do not use any tobacco products, such as cigarettes, chewing tobacco, and e-cigarettes. If you need help quitting, ask your health care provider. Contact a health care provider if: ? You have a fever for more than 2?3 days. ? You have symptoms that last (are persistent) for more than 2?3 days. ? Your throat does not get better within 7 days. ? You have a fever and your symptoms suddenly get worse. Get help right away if: ? You have difficulty breathing. ? You cannot swallow fluids, soft foods, or your saliva. ? You have increased swelling in your throat or neck. ? You have persistent nausea and vomiting. This information is not intended to replace advice given to you by your health care provider. Make sure you discuss any questions you have with your health care provider. Document Released: 10/27/2005 Document Revised: 05/15/2017 Document Reviewed: 07/09/2016 [employer] Interactive Patient Education ? 2019 [employer] Pharyngitis Pharyngitis is redness, pain, and swelling (inflammation) of the throat (pharynx). It is a very common cause of sore throat. Pharyngitis can be caused by a bacteria, but it is usually caused by a virus. Most cases of pharyngitis get better on their own without treatment. What are the causes? This condition may be caused by: ? Infection by viruses (viral). Viral pharyngitis spreads from person to person (is contagious) through coughing, sneezing, and sharing of personal items or utensils such as cups, forks, spoons, and toothbrushes. ? Infection by bacteria (bacterial). Bacterial pharyngitis may be spread by touching the nose or face after coming in contact with the bacteria, or through more intimate contact, such as kissing. ? Allergies. Allergies can cause buildup of mucus in the throat (post-nasal drip), leading to inflammation and irritation. Allergies can also cause blocked nasal passages, forcing breathing through the mouth, which dries and irritates the throat. What increases the risk? You are more likely to develop this condition if: ? You are 5?24 years old. ? You are exposed to crowded environments such as daycare, school, or dormitory living. ? You live in a cold climate. ? You have a weakened disease-fighting (immune) system. What are the signs or symptoms? Symptoms of this condition vary by the cause (viral, bacterial, or allergies) and can include: ? Sore throat. ? Fatigue. ? Low-grade fever. ? Headache. ? Joint pain and muscle aches. ? Skin rashes. ? Swollen glands in the throat (lymph nodes). ? Plaque-like film on the throat or tonsils. This is often a symptom of bacterial pharyngitis. ? Vomiting. ? Stuffy nose (nasal congestion). ? Cough. ? Red, itchy eyes (conjunctivitis). ? Loss of appetite. How is this diagnosed? This condition is often diagnosed based on your medical history and a physical exam. Your health care provider will ask you questions about your illness and your symptoms. A swab of your throat may be done to check for bacteria (rapid strep test). Other lab tests may also be done, depending on the suspected cause, but these are rare. How is this treated? This condition usually gets better in 3?4 days without medicine. Bacterial pharyngitis may be treated with antibiotic medicines. Follow these instructions at home: ? Take sriw-lam-qczbbtq and prescription medicines only as told by your health care provider. ? If you were prescribed an antibiotic medicine, take it as told by your health care provider. Do not stop taking the antibiotic even if you start to feel better. ? Do not give children aspirin because of the association with Jovan syndrome. ? Drink enough water and fluids to keep your urine clear or pale yellow. ? Get a lot of rest. ? Gargle with a salt-water mixture 3?4 times a day or as needed. To make a salt-water mixture, completely dissolve ?-1 tsp of salt in 1 cup of warm water. ? If your health care provider approves, you may use throat lozenges or sprays to soothe your throat. Contact a health care provider if: ? You have large, tender lumps in your neck. ? You have a rash. ? You cough up green, yellow-brown, or bloody spit. Get help right away if: ? Your neck becomes stiff. ? You drool or are unable to swallow liquids. ? You cannot drink or take medicines without vomiting. ? You have severe pain that does not go away, even after you take medicine. ? You have trouble breathing, and it is not caused by a stuffy nose. ? You have new pain and swelling in your joints such as the knees, ankles, wrists, or elbows. Summary ? Pharyngitis is redness, pain, and swelling (inflammation) of the throat (pharynx). ? While pharyngitis can be caused by a bacteria, the most common causes are viral. ? Most cases of pharyngitis get better on their own without treatment. ? Bacterial pharyngitis is treated with antibiotic medicines. This information is not intended to replace advice given to you by your health care provider. Make sure you discuss any questions you have with your health care provider. Document Released: 09/19/2006 Document Revised: 10/25/2017 Document Reviewed: 10/25/2017 [employer] Interactive Patient Education ? 2019 [employer]. Normal [facility] ED Patient Summaryon 019 ED Patient Summary [facility] - Emergency Department [address] [place] [address] PATIENT DISCHARGE INSTRUCTIONS Patient Information Name: ANGELA HENDRICKSON Age: 33 Years Date of : 1985 Reason For Visit: Throat pain - Adult; SORE THROAT, BIALTERAL EAR PAIN Arrival Time: 09/04/2019 11:12:00 Primary Care Physician: Provider, None Attending Physician: John Krishnamurthy MD Comment: Visit Diagnosis: Diagnoses This Visit Throat pain - Adult ([id number]) Tonsil stone (J35.8) Viral pharyngitis (J02.9) Prescription Information: If you have been given a prescription for narcotics, seek immediate medical attention if you have any difficulty breathing or any sudden status changes such as confusion and sleepiness. If you or anyone you know is experiencing suicidal thoughts, mental health, alcohol and/or drug addiction problems; contact the [facility] 25/04 Crisis Hotline -Text 5ACJK gd 535112. If you received any narcotics, sedation, or any other medication that causes drowsiness for the next 24 hours, unless otherwise directed: ? Do not drive a car. ? Do not operate machinery such as power tools, lawn mowers, drills, sewing machines, or stoves ? Avoid alcoholic beverages and drugs for allergies, nerves, or sleep ? Do not make important personal or business decisions or sign any legal documents With: Address: When: Follow up with primary care provider Within 3 to 5 days Comments: Please follow up with your primary care provider in 3 to 5 days. Please call their office this afternoon to schedule a follow-up appointment. You were seen and evaluated here in the emergency department for sore throat and bilateral ear discomfort. You had a rapid strep completed today which is negative. Did appear in your strep swab that you possibly had a tonsil stone on the left. This may be further evaluated by bearing press machine operator in which you are given information to follow-up with Dr. Evans. Continue Tylenol ibuprofen or Chloraseptic [place] for discomfort. Continue fluids rest. You may return here to the emergency department develop any fever, chills or any other worsening or concerning symptoms. With: Address: When: Tobi Evans [address] [place] [address] Business (1) Within 3 to 5 days Medication Information: The exam and treatment you received today in the [facility] Emergency Department were for an urgent problem and are not intended as complete care. It is important for you to follow up with a doctor, nurse practitioner, or physician?s assistant professor of surgery for ongoing care. If your symptoms become worse or you do not improve as expected and you are unable to reach your usual health care provider, you should return to the Emergency Department, we are available 24 hours a day. For those patients who have received Radiology results, the interpretation of your X-ray as given to you by our Emergency Department physician is only a preliminary report. The Radiologist will review your films and if there is a change in the diagnosis you will be notified by phone. Please make sure you have provided a working phone number so we can reach you if necessary. In the event that you had a lab culture while you were a patient in the Emergency Department, you will be notified by phone if there is a need to change your antibiotic. Please make sure you have provided a working phone number so we can reach you if necessary. [facility] Emergency Department has provided you with a complete list of medications post discharge. Please inform your architectural drafter/provider of your visit and for further instruction on these medications. Any specific questions regarding your chronic medications and dosages should be discussed with your primary care physician(s) and/or pharmacist. Medications to Continue That Have Not Changed Other Medications albuterol (albuterol 0.083% inh solution) 2.5 Milligram Nebulized inhalation every 6 hours. albuterol (albuterol CFC free 90 mcg/inh inhalation aerosol) Inhalation 4 times a day. atorvastatin (Lipitor 20 mg oral tablet) 1 tab(s) Oral every day. budesonide-formoterol (Symbicort 160 mcg-4.5 mcg/inh) 2 puff(s) Inhalation 2 times a day. busPIRone (busPIRone 7.5 mg oral tablet) 1 tab(s) Oral 2 times a day. cetirizine (ZyrTEC 10 mg oral tablet) 1 tab(s) Oral every day. diclofenac 75 Milligram Oral. gabapentin (gabapentin 300 mg oral capsule) 1 cap(s) Oral 3 times a day. hydroCHLOROthiazide 12.5 Milligram Oral every day. hydrOXYzine 25 Milligram. levothyroxine (Synthroid) 50 Microgram Oral every day. lisinopril (lisinopril 20 mg oral tablet) 1 tab(s) Oral every day. loperamide (Imodium A-D) 2 Milligram Oral every 4 hours. medroxyPROGESTERone (medroxyPROGESTERone 400 mg/mL intramuscular suspension) 1 Milliliter Intramuscular every week. meloxicam (Mobic 15 mg oral tablet) 1 tab(s) Oral every day. montelukast (Singulair 10 mg oral tablet) 1 tab(s) Oral every day. QUEtiapine (QUEtiapine 200 mg oral tablet) 1 tab(s) Oral 2 times a day. raNITIdine (Zantac 150) 150 Milligram Oral 2 times a day. sertraline Oral every day. Visit Information Allergies: Substance Reaction Symptoms Type Comments Claritin Tachycardia Drug methylPREDNISolone Hives Drug Vital Signs: Vitals and Measurements this Visit (last charted value for your 09/04/2019 visit) Vital Signs This Visit Temperature Oral: 36.9 DegC Peripheral Pulse Rate: 91 bpm Respiratory Rate: 16 br/min Systolic Blood Pressure: 139 mmHg Diastolic Blood Pressure: 86 mmHg SpO2: 95 % Oxygen Therapy: Room air Measurements This Visit Height/Length Dosin.100 cm Height/Length Estimated: 151.100 cm Weight Dosin.900 kg Weight Estimated: 122.900 kg Problems List: Problem Onset Comments Asthma Hypothyroid Patient Education Sore Throat A sore throat is pain, burning, irritation, or scratchiness in the throat. When you have a sore throat, you may feel pain or tenderness in your throat when you swallow or talk. Many things can cause a sore throat, including: ? An infection. ? Seasonal allergies. ? Dryness in the air. ? Irritants, such as smoke or pollution. ? Gastroesophageal reflux disease (GERD). ? A tumor. A sore throat is often the first sign of another sickness. It may happen with other symptoms, such as coughing, sneezing, fever, and swollen neck glands. Most sore throats go away without medical treatment. Follow these instructions at home: ? Take pdku-ssv-gsctpsa medicines only as told by your health care provider. ? Drink enough fluids to keep your urine clear or pale yellow. ? Rest as needed. ? To help with pain, try: ? Sipping warm liquids, such as broth, herbal tea, or warm water. ? Eating or drinking cold or frozen liquids, such as frozen ice pops. ? Gargling with a salt-water mixture 3?4 times a day or as needed. To make a salt-water mixture, completely dissolve ??1 tsp of salt in 1 cup of warm water. ? Sucking on hard candy or throat lozenges. ? Putting a cool-mist humidifier in your bedroom at night to moisten the air. ? Sitting in the bathroom with the door closed for 5?10 minutes while you run hot water in the shower. ? Do not use any tobacco products, such as cigarettes, chewing tobacco, and e-cigarettes. If you need help quitting, ask your health care provider. Contact a health care provider if: ? You have a fever for more than 2?3 days. ? You have symptoms that last (are persistent) for more than 2?3 days. ? Your throat does not get better within 7 days. ? You have a fever and your symptoms suddenly get worse. Get help right away if: ? You have difficulty breathing. ? You cannot swallow fluids, soft foods, or your saliva. ? You have increased swelling in your throat or neck. ? You have persistent nausea and vomiting. This information is not intended to replace advice given to you by your health care provider. Make sure you discuss any questions you have with your health care provider. Document Released: 10/27/2005 Document Revised: 05/15/2017 Document Reviewed: 07/09/2016 [employer] Patient Education ? 2019 [employer]. Pharyngitis Pharyngitis is redness, pain, and swelling (inflammation) of the throat (pharynx). It is a very common cause of sore throat. Pharyngitis can be caused by a bacteria, but it is usually caused by a virus. Most cases of pharyngitis get better on their own without treatment. What are the causes? This condition may be caused by: ? Infection by viruses (viral). Viral pharyngitis spreads from person to person (is contagious) through coughing, sneezing, and sharing of personal items or utensils such as cups, forks, spoons, and toothbrushes. ? Infection by bacteria (bacterial). Bacterial pharyngitis may be spread by touching the nose or face after coming in contact with the bacteria, or through more intimate contact, such as kissing. ? Allergies. Allergies can cause buildup of mucus in the throat (post-nasal drip), leading to inflammation and irritation. Allergies can also cause blocked nasal passages, forcing breathing through the mouth, which dries and irritates the throat. What increases the risk? You are more likely to develop this condition if: ? You are 5?24 years old. ? You are exposed to crowded environments such as daycare, school, or dormitory living. ? You live in a cold climate. ? You have a weakened disease-fighting (immune) system. What are the signs or symptoms? Symptoms of this condition vary by the cause (viral, bacterial, or allergies) and can include: ? Sore throat. ? Fatigue. ? Low-grade fever. ? Headache. ? Joint pain and muscle aches. ? Skin rashes. ? Swollen glands in the throat (lymph nodes). ? Plaque-like film on the throat or tonsils. This is often a symptom of bacterial pharyngitis. ? Vomiting. ? Stuffy nose (nasal congestion). ? Cough. ? Red, itchy eyes (conjunctivitis). ? Loss of appetite. How is this diagnosed? This condition is often diagnosed based on your medical history and a physical exam. Your health care provider will ask you questions about your illness and your symptoms. A swab of your throat may be done to check for bacteria (rapid strep test). Other lab tests may also be done, depending on the suspected cause, but these are rare. How is this treated? This condition usually gets better in 3?4 days without medicine. Bacterial pharyngitis may be treated with antibiotic medicines. Follow these instructions at home: ? Take klhl-hec-zcnotog and prescription medicines only as told by your health care provider. ? If you were prescribed an antibiotic medicine, take it as told by your health care provider. Do not stop taking the antibiotic even if you start to feel better. ? Do not give children aspirin because of the association with Jovan syndrome. ? Drink enough water and fluids to keep your urine clear or pale yellow. ? Get a lot of rest. ? Gargle with a salt-water mixture 3?4 times a day or as needed. To make a salt-water mixture, completely dissolve ?-1 tsp of salt in 1 cup of warm water. ? If your health care provider approves, you may use throat lozenges or sprays to soothe your throat. Contact a health care provider if: ? You have large, tender lumps in your neck. ? You have a rash. ? You cough up green, yellow-brown, or bloody spit. Get help right away if: ? Your neck becomes stiff. ? You drool or are unable to swallow liquids. ? You cannot drink or take medicines without vomiting. ? You have severe pain that does not go away, even after you take medicine. ? You have trouble breathing, and it is not caused by a stuffy nose. ? You have new pain and swelling in your joints such as the knees, ankles, wrists, or elbows. Summary ? Pharyngitis is redness, pain, and swelling (inflammation) of the throat (pharynx). ? While pharyngitis can be caused by a bacteria, the most common causes are viral. ? Most cases of pharyngitis get better on their own without treatment. ? Bacterial pharyngitis is treated with antibiotic medicines. This information is not intended to replace advice given to you by your health care provider. Make sure you discuss any questions you have with your health care provider. Document Released: 09/19/2006 Document Revised: 10/25/2017 Document Reviewed: 10/25/2017 [employer] Interactive Patient Education ? 2019 [employer] Viruses or Bacteria What?s got you sick? Antibiotics only treat bacterial infections. Viral illnesses cannot be treated with antibiotics. When an antibiotic is not prescribed, ask your healthcare professional for tips on how to relieve symptoms and feel better. Usual Cause Illness Viruses Bacteria Antibiotic Needed Cold/Runny Nose NO Bronchitis/Chest Cold (in otherwise healthy children and adults) NO Whooping Cough Yes Flu NO Strep Throat Yes Sore Throat (except strep) NO Fluid in the middle ear (otitis media with effusion) NO Urinary Tract Infection Yes Antibiotics Aren?t Always the Answer www.cdc.gov/getsmart GET SMART Know When Antibiotics Work U.S. Department of Health and Human Services Centers for Disease Control and Prevention June 2014 [facility] Strep Aon 09-04-2019 Strep procedure control Pass [facility] Comment on above: Performed By: #### [id number] ####[facility] (DEFAULT)[address] [place] [id number] Streptococcus A Negative Normal Negative [facility] Comment on above: Performed By: #### [id number] ####[facility] (DEFAULT)[address] [place] [id number] Coding Summaryon 09-03-2019 Coding Summary CODING DATE: 019 [facility] STATUS: Home PAYOR: Medicaid HMO ADMIT DX: REASON FOR VISIT DX: J02.9 Acute pharyngitis, unspecified FINAL DX: PRINCIPAL: J02.8 Acute pharyngitis due to other specified organisms SECONDARY: PYMT PROC APC STAT DESCRIPTION DOCTOR NAME DATE NOTE: The code number assigned matches the documented diagnosis and / or procedure in the patient's chart. However, the narrative phrase printed from the coding software may appear abbreviated, or result in slightly different terminology. Coded By: Alpa Norman Date Saved: 09/03/2019 01:04 pm [facility] C Throaton 09-02-2019 C Throat Ordered by Discern. Normal throat leda isolated No pathogens isolated [facility] Comment on above: Performed By: #### [id number] ####[facility] (DEFAULT)[address] [place] [address] ED Clinical Summaryon 2018 ED Clinical Summary [facility] ? Urgent Care [address] [place] [address] Clinical Summary PERSON INFORMATION Name: ANGELA HENDRICKSON Age: 33 Years Sex: FEMALE : 1985 MRN: Acct#: Visit Reason: UC - Sore Throat; SORE THROAT Arrival: 08/31/2019 17:03:36 Discharge: 08/31/2019 17:39:00 LOS: 000 00:36 Check In: 08/31/2019 17:03:36 Checkout: 08/31/2019 17:39:00 Address: [address] [place] [address] PCP: Rasta Palafox CNP PROVIDER INFORMATION Provider Role Assigned Unassigned Raphael Myers RN ED Nurse 08/31/2019 17:05:27 Esteban Barry ED PA 08/31/2019 17:15:10 VITALS INFORMATION Vital Sign Triage Latest Temperature Tympanic Temperature Temporal Artery Pulse Rate O2 Sat 97 % 97 % Respiratory Rate Blood Pressure /80 mmHg /80 mmHg MEDICAL INFORMATION Medications Given: Allergy Information: Claritin; methylPREDNISolone PHYSICIAN DOCUMENTATION DISCHARGE INFORMATION: Discharge Disposition: Home Discharge Location: Home PATIENT EDUCATION INFORMATION Instructions: Sore Throat Follow-Up: With: Address: When: Rasta Palafox [address] [facility] [address] [facility], [address] [place] [id number] Business (1) Comments: Your throat sore throat is most bothersome today. Your rapid strep test was negative. Throat culture will return in 3 days and if positive for bacterial infection you be notified by telephone so an antibiotic can be prescribed.. You do not have a fever today without the use of Tylenol or ibuprofen. -Consider additional use of Chloraseptic spray, salt water gargle, cool liquids. -Ibuprofen 600 mg every 8 hours will help for the pain and discomfort if needed. -You may also use Tylenol 500mg every 4-6 hours for additional pain relief. Please return for medical care if fever over 101.5, difficulty swallowing, swelling on only one side of your neck or back of throat, muffled voice, drooling, progressive symptoms, chest pain, shortness breath, abdominal pain, nausea, vomiting, diarrhea. DIAGNOSIS: Acute viral pharyngitis Patient Understands: Yes - Patient/family/caregive r verbalizes understanding of instructions given Comment: Normal [facility] ED Patient Summaryon 019 ED Patient Summary [facility] ? Urgent Care [address] [place] [address] PATIENT DISCHARGE INSTRUCTIONS Patient Information Name: ANGELA HENDRICKSON Age: 33 Years Date of : 1985 Reason For Visit: UC - Sore Throat; SORE THROAT Arrival Time: 08/31/2019 17:03:36 Primary Care Physician: Rasta Palafox CNP Attending Physician: Esteban Barry Comment: Patient Education With: Address: When: Rasta Palafox [address] [facility], [address] [place] [address] Business (1) Comments: Your throat sore throat is most bothersome today. Your rapid strep test was negative. Throat culture will return in 3 days and if positive for bacterial infection you be notified by telephone so an antibiotic can be prescribed.. You do not have a fever today without the use of Tylenol or ibuprofen. -Consider additional use of Chloraseptic spray, salt water gargle, cool liquids. -Ibuprofen 600 mg every 8 hours will help for the pain and discomfort if needed. -You may also use Tylenol 500mg every 4-6 hours for additional pain relief. Please return for medical care if fever over 101.5, difficulty swallowing, swelling on only one side of your neck or back of throat, muffled voice, drooling, progressive symptoms, chest pain, shortness breath, abdominal pain, nausea, vomiting, diarrhea. Sore Throat A sore throat is pain, burning, irritation, or scratchiness in the throat. When you have a sore throat, you may feel pain or tenderness in your throat when you swallow or talk. Many things can cause a sore throat, including: ? An infection. ? Seasonal allergies. ? Dryness in the air. ? Irritants, such as smoke or pollution. ? Gastroesophageal reflux disease (GERD). ? A tumor. A sore throat is often the first sign of another sickness. It may happen with other symptoms, such as coughing, sneezing, fever, and swollen neck glands. Most sore throats go away without medical treatment. Follow these instructions at home: ? Take tdls-hbu-crmmfzf medicines only as told by your health care provider. ? Drink enough fluids to keep your urine clear or pale yellow. ? Rest as needed. ? To help with pain, try: ? Sipping warm liquids, such as broth, herbal tea, or warm water. ? Eating or drinking cold or frozen liquids, such as frozen ice pops. ? Gargling with a salt-water mixture 3?4 times a day or as needed. To make a salt-water mixture, completely dissolve ??1 tsp of salt in 1 cup of warm water. ? Sucking on hard candy or throat lozenges. ? Putting a cool-mist humidifier in your bedroom at night to moisten the air. ? Sitting in the bathroom with the door closed for 5?10 minutes while you run hot water in the shower. ? Do not use any tobacco products, such as cigarettes, chewing tobacco, and e-cigarettes. If you need help quitting, ask your health care provider. Contact a health care provider if: ? You have a fever for more than 2?3 days. ? You have symptoms that last (are persistent) for more than 2?3 days. ? Your throat does not get better within 7 days. ? You have a fever and your symptoms suddenly get worse. Get help right away if: ? You have difficulty breathing. ? You cannot swallow fluids, soft foods, or your saliva. ? You have increased swelling in your throat or neck. ? You have persistent nausea and vomiting. This information is not intended to replace advice given to you by your health care provider. Make sure you discuss any questions you have with your health care provider. Document Released: 10/27/2005 Document Revised: 05/15/2017 Document Reviewed: 07/09/2016 [employer] Interactive Patient Education ? 2019 [employer]. Medication Information: The exam and treatment you received today in the [facility] Emergency Department were for an urgent problem and are not intended as complete care. It is important for you to follow up with a doctor, nurse practitioner, or physician?s assistant professor of surgery for ongoing care. If your symptoms become worse or you do not improve as expected and you are unable to reach your usual health care provider, you should return to the Emergency Department, we are available 24 hours a day. For those patients who have received Radiology results, the interpretation of your X-ray as given to you by our Emergency Department physician is only a preliminary report. The Radiologist will review your films and if there is a change in the diagnosis you will be notified by phone. Please make sure you have provided a working phone number so we can reach you if necessary. In the event that you had a lab culture while you were a patient in the Emergency Department, you will be notified by phone if there is a need to change your antibiotic. Please make sure you have provided a working phone number so we can reach you if necessary. [facility] Emergency Department has provided you with a complete list of medications post discharge. Please inform your architectural drafter/provider of your visit and for further instruction on these medications. Any specific questions regarding your chronic medications and dosages should be discussed with your primary care physician(s) and/or pharmacist. Medications to Continue That Have Not Changed Other Medications albuterol (albuterol 0.083% inh solution) 2.5 Milligram Nebulized inhalation every 6 hours. albuterol (albuterol CFC free 90 mcg/inh inhalation aerosol) Inhalation 4 times a day. atorvastatin (Lipitor 20 mg oral tablet) 1 tab(s) Oral every day. budesonide-formoterol (Symbicort 160 mcg-4.5 mcg/inh) 2 puff(s) Inhalation 2 times a day. busPIRone (busPIRone 7.5 mg oral tablet) 1 tab(s) Oral 2 times a day. cetirizine (ZyrTEC 10 mg oral tablet) 1 tab(s) Oral every day. diclofenac 75 Milligram Oral. gabapentin (gabapentin 300 mg oral capsule) 1 cap(s) Oral 3 times a day. hydroCHLOROthiazide 12.5 Milligram Oral every day. hydrOXYzine 25 Milligram. levothyroxine (Synthroid) 50 Microgram Oral every day. lisinopril (lisinopril 20 mg oral tablet) 1 tab(s) Oral every day. loperamide (Imodium A-D) 2 Milligram Oral every 4 hours. medroxyPROGESTERone (medroxyPROGESTERone 400 mg/mL intramuscular suspension) 1 Milliliter Intramuscular every week. meloxicam (Mobic 15 mg oral tablet) 1 tab(s) Oral every day. montelukast (Singulair 10 mg oral tablet) 1 tab(s) Oral every day. QUEtiapine (QUEtiapine 200 mg oral tablet) 1 tab(s) Oral 2 times a day. raNITIdine (Zantac 150) 150 Milligram Oral 2 times a day. sertraline Oral every day. Visit Information Visit Diagnosis: Diagnoses This Visit Acute viral pharyngitis (J02.8) UC - Sore Throat ([id number]) If you received any narcotics, sedation, or any other medication that causes drowsiness for the next 24 hours, unless otherwise directed: ? Do not drive a car. ? Do not operate machinery such as power tools, lawn mowers, drills, sewing machines, or stoves ? Avoid alcoholic beverages and drugs for allergies, nerves, or sleep ? Do not make important personal or business decisions or sign any legal documents Reason for Visit: sore throat, difficult to swallow Allergies: Substance Reaction Symptoms Type Comments Claritin Tachycardia Drug methylPREDNISolone Hives Drug Vital Signs: Vitals and Measurements this Visit (last charted value for your 08/31/2019 visit) Vital Signs This Visit Temperature Temporal: 36.4 DegC Peripheral Pulse Rate: 98 bpm Respiratory Rate: 20 br/min Systolic Blood Pressure: 120 mmHg Diastolic Blood Pressure: 80 mmHg SpO2: 97 % Problems List: Problem Onset Comments Asthma Hypothyroid Major Tests and Procedures: The following procedures and tests were performed during your ED visit. Laboratory Rapid Strep Throat, 08/31/19 17:10:00 EST, Stat collect, Stop date 08/31/19 17:10:00 EST, Nurse collect Throat Culture Throat, Collected, 08/31/19 17:10:00 EST, Stat collect, Stop date 08/31/19 17:10:00 EST, Nurse collect, [id number] Radiology Cardiology Viruses or Bacteria What?s got you sick? Antibiotics only treat bacterial infections. Viral illnesses cannot be treated with antibiotics. When an antibiotic is not prescribed, ask your healthcare professional for tips on how to relieve symptoms and feel better. Usual Cause Illness Viruses Bacteria Antibiotic Needed Cold/Runny Nose NO Bronchitis/Chest Cold (in otherwise healthy children and adults) NO Whooping Cough Yes Flu NO Strep Throat Yes Sore Throat (except strep) NO Fluid in the middle ear (otitis media with effusion) NO Urinary Tract Infection Yes Antibiotics Aren?t Always the Answer www.cdc.gov/getsmart GET SMART Know When Antibiotics Work U.S. Department of Health and Human Services Centers for Disease Control and Prevention June 2014 [facility] Patient Handouton 08-31-2019 Patient Handout Patient Education Materials Follows:Disease Sore Throat A sore throat is pain, burning, irritation, or scratchiness in the throat. When you have a sore throat, you may feel pain or tenderness in your throat when you swallow or talk. Many things can cause a sore throat, including: ? An infection. ? Seasonal allergies. ? Dryness in the air. ? Irritants, such as smoke or pollution. ? Gastroesophageal reflux disease (GERD). ? A tumor. A sore throat is often the first sign of another sickness. It may happen with other symptoms, such as coughing, sneezing, fever, and swollen neck glands. Most sore throats go away without medical treatment. Follow these instructions at home: ? Take woen-qmg-ixytaic medicines only as told by your health care provider. ? Drink enough fluids to keep your urine clear or pale yellow. ? Rest as needed. ? To help with pain, try: ? Sipping warm liquids, such as broth, herbal tea, or warm water. ? Eating or drinking cold or frozen liquids, such as frozen ice pops. ? Gargling with a salt-water mixture 3?4 times a day or as needed. To make a salt-water mixture, completely dissolve ??1 tsp of salt in 1 cup of warm water. ? Sucking on hard candy or throat lozenges. ? Putting a cool-mist humidifier in your bedroom at night to moisten the air. ? Sitting in the bathroom with the door closed for 5?10 minutes while you run hot water in the shower. ? Do not use any tobacco products, such as cigarettes, chewing tobacco, and e-cigarettes. If you need help quitting, ask your health care provider. Contact a health care provider if: ? You have a fever for more than 2?3 days. ? You have symptoms that last (are persistent) for more than 2?3 days. ? Your throat does not get better within 7 days. ? You have a fever and your symptoms suddenly get worse. Get help right away if: ? You have difficulty breathing. ? You cannot swallow fluids, soft foods, or your saliva. ? You have increased swelling in your throat or neck. ? You have persistent nausea and vomiting. This information is not intended to replace advice given to you by your health care provider. Make sure you discuss any questions you have with your health care provider. Document Released: 10/27/2005 Document Revised: 05/15/2017 Document Reviewed: 07/09/2016 [employer] Interactive Patient Education ? 2019 [employer]. Normal [facility] Strep Aon 08-31-2019 Strep procedure control Pass Normal [facility] Comment on above: Performed By: #### [id number] ####[facility] (DEFAULT)[address] [place] [address] Streptococcus A Negative Normal Negative [facility] Comment on above: Performed By: #### [id number] ####[facility] (DEFAULT)[address] [place] [address] Urgent Care Note- Provideron 08-31-2019 Urgent Care Note- Provider Patient: ANGELA HENDRICKSON Age: 33 years Sex: FEMALE : 1985 Associated Diagnoses: Acute viral pharyngitis Author: Esteban Barry Basic Information Time seen: Date & time 08/31/2019 17:15:00. History source: Patient. Arrival mode: Walking. History limitation: None. Additional information: Chief Complaint from Nursing Triage Note : Chief Complaint 08/31/2019 17:06 EST Chief Complaint sore throat, difficult to swallow . Angela is a pleasant 33-year-old patient who states 1 week ago she fell some tenderness in bilateral anterior lymph nodes. Patient states she has had a mild sore throat all week. No fevers or chills. She is here to see if she has strep throat. Patient denies ear pain headaches decreased appetite nausea vomiting diarrhea. Ports history of strep throat approximately 5 years ago. Review of Systems Constitutional symptoms: Fever, chills, decreased activity, No sweats, Skin symptoms: No rash, no breakdown, no lesion. Eye symptoms: No recent vision problems, no blurred vision. ENMT symptoms: Sore throat, no ear pain, no nasal congestion, no sinus pain. Respiratory symptoms: No shortness of breath, no cough. Cardiovascular symptoms: No chest pain, no palpitations. Gastrointestinal symptoms: No abdominal pain, no nausea, no vomiting, no diarrhea. Genitourinary symptoms: No dysuria, no hematuria. Musculoskeletal symptoms: Muscle pain, No back pain, Neurologic symptoms: No headache, no dizziness, no altered level of consciousness, no numbness, no tingling, no weakness. Psychiatric symptoms: No anxiety, no depression. Health Status Allergies: Allergic Reactions (Selected) Severity Not Documented Claritin- Tachycardia. MethylPREDNISolone- Hives.. Medications: (Selected) Documented Medications Documented Imodium A-D: 2 mg, PO, q4hr (int), 0 Refill(s) Lipitor 20 mg oral tablet: 20 mg = 1 tab(s), PO, Daily, 0 Refill(s) Mobic 15 mg oral tablet: 15 mg = 1 tab(s), PO, Daily, 0 Refill(s) QUEtiapine 200 mg oral tablet: 200 mg = 1 tab(s), PO, BID, 0 Refill(s) Singulair 10 mg oral tablet: 10 mg = 1 tab(s), PO, Daily, 0 Refill(s) Symbicort 160 mcg-4.5 mcg/inh: 2 puff(s), INH, BID Synthroid: 50 mcg, PO, Daily, 0 Refill(s) Zantac 150: 150 mg, PO, BID, 0 Refill(s) ZyrTEC 10 mg oral tablet: 10 mg = 1 tab(s), PO, Daily, 0 Refill(s) albuterol 0.083% inh solution: 2.5 mg, NEB, q6hr (int), 0 Refill(s) albuterol CFC free 90 mcg/inh inhalation aerosol: INH, QID, 0 Refill(s) busPIRone 7.5 mg oral tablet: 7.5 mg = 1 tab(s), PO, BID, 0 Refill(s) diclofenac: 75 mg, PO, 0 Refill(s) gabapentin 300 mg oral capsule: 300 mg = 1 cap(s), PO, TID, 0 Refill(s) hydrOXYzine: 25 mg, 0 Refill(s) hydroCHLOROthiazide: 12.5 mg, PO, Daily, 0 Refill(s) lisinopril 20 mg oral tablet: 20 mg = 1 tab(s), PO, Daily, 0 Refill(s) medroxyPROGESTERone 400 mg/mL intramuscular suspension: 400 mg = 1 mL, IM, qWeek, 1 mL, 0 Refill(s) sertraline: PO, Daily, 0 Refill(s). Past Medical/ Family/ Social History Medical history: No active or resolved past medical history items have been selected or recorded.. Surgical history: No active procedure history items have been selected or recorded.. Family history: No family history items have been selected or recorded.. Social history: Social & Psychosocial Habits Alcohol 03/21/2019 Alcohol Use: Never Substance Abuse 03/21/2019 Substance use: Never Tobacco 03/21/2019 Smoking tobacco use: Never (less than 100 in l Electronic Cigarette/Vaping 06/26/2019 Electronic Cigarette Use: Never . Problem list: Active Problems (2) Asthma Hypothyroid . Physical Examination Vital Signs Vital Signs 08/31/2019 17:06 EST Temperature Temporal 36.4 DegC Peripheral Pulse Rate 98 bpm Respiratory Rate 20 br/min Systolic Blood Pressure 120 mmHg Diastolic Blood Pressure 80 mmHg SpO2 97 % . Wt of 284 lbs. General: Alert, appropriate for age, no acute distress, Not ill-appearing, Skin: Warm, dry, pink. Head: Normocephalic, atraumatic. Neck: Supple, trachea midline, no meningeal signs.. Eye: Pupils are equal, round and reactive to light, extraocular movements are intact, normal conjunctiva. Ears, nose, mouth and throat: Tympanic membranes clear, oral mucosa moist, Sinus, Nose: Moderate, discharge, swelling, Throat: Mild, erythema, gag reflex present, not with exudate, no swelling, no drainage, no palatal petechiae, no uvula shift. Cardiovascular: Regular rate and rhythm, No murmur. Respiratory: Lungs are clear to auscultation, respirations are non-labored, breath sounds are equal. Chest wall: No tenderness. Back: Nontender, Normal range of motion. Musculoskeletal: Normal ROM, normal strength, no tenderness. Gastrointestinal: Soft, Nontender, Non distended. Neurological: Alert and oriented to person, place, time, and situation, No focal neurological deficit observed. Lymphatics: No lymphadenopathy. Psychiatric: Cooperative. Medical Decision Making Results review: Lab results : Lab Flowsheet 08/31/2019 17:10 EST Streptococcus A Negative . 7 days of mild sore throat and tenderness bilateral anterior lymph nodes. Rapid strep negative. Advised patient we will await throat culture. No antibiotics indicated. Viral etiology. No signs of peritonsillar abscess. Patient's afebrile. Chloraseptic [place], fluids, salt water gargle. Ibuprofen every 8 hours as needed for discomfort. Tylenol every 4-6 hours as needed for pain. Impression and Plan Diagnosis Acute viral pharyngitis ([id number] J02.8, Discharge, Medical) Plan Condition: Stable. Disposition: Discharged: Time 08/31/2019 17:31:00, to home. Patient was given the following educational materials: Sore Throat. Follow up with: Rasta Palafox Your throat sore throat is most bothersome today. Your rapid strep test was negative. Throat culture will return in 3 days and if positive for bacterial infection you be notified by telephone so an antibiotic can be prescribed.. You do not have a fever today without the use of Tylenol or ibuprofen. -Consider additional use of Chloraseptic spray, salt water gargle, cool liquids. -Ibuprofen 600 mg every 8 hours will help for the pain and discomfort if needed. -You may also use Tylenol 500mg every 4-6 hours for additional pain relief. Please return for medical care if fever over 101.5, difficulty swallowing, swelling on only one side of your neck or back of throat, muffled voice, drooling, progressive symptoms, chest pain, shortness breath, abdominal pain, nausea, vomiting, diarrhea.. Counseled: Patient, Regarding diagnosis, Regarding treatment plan, Regarding prescription, Patient indicated understanding of instructions. Normal [facility] [address] 019 Urgent Care Record [facility] ? Urgent Care [address] [id number] PATIENT DISCHARGE INSTRUCTIONS Patient Information Name: ANGELA HENDRICKSON Age: 33 Years Date of : 1985 Reason For Visit: UC - Sore Throat; SORE THROAT Arrival Time: 08/31/2019 17:03:36 Primary Care Physician: Rasta Palafox CNP Attending Physician: Esteban Barry Comment: Visit Diagnosis: Diagnoses This Visit Acute viral pharyngitis (J02.8) UC - Sore Throat ([id number]) If you received any narcotics, sedation, or any other medication that causes drowsiness for the next 24 hours, unless otherwise directed: ? Do not drive a car. ? Do not operate machinery such as power tools, lawn mowers, drills, sewing machines, or stoves ? Avoid alcoholic beverages and drugs for allergies, nerves, or sleep ? Do not make important personal or business decisions or sign any legal documents With: Address: When: Rasta Palafox [address], [address] [place] [address] Business (1) Comments: Your throat sore throat is most bothersome today. Your rapid strep test was negative. Throat culture will return in 3 days and if positive for bacterial infection you be notified by telephone so an antibiotic can be prescribed.. You do not have a fever today without the use of Tylenol or ibuprofen. -Consider additional use of Chloraseptic spray, salt water gargle, cool liquids. -Ibuprofen 600 mg every 8 hours will help for the pain and discomfort if needed. -You may also use Tylenol 500mg every 4-6 hours for additional pain relief. Please return for medical care if fever over 101.5, difficulty swallowing, swelling on only one side of your neck or back of throat, muffled voice, drooling, progressive symptoms, chest pain, shortness breath, abdominal pain, nausea, vomiting, diarrhea. Medication Information: The exam and treatment you received today in the [facility] were for an urgent problem and are not intended as complete care. It is important for you to follow up with a doctor, nurse practitioner, or physician?s assistant professor of surgery for ongoing care. If your symptoms become worse or you do not improve as expected and you are unable to reach your usual health care provider, you should return to the Emergency Department, we are available 24 hours a day. For those patients who have received Radiology results, the interpretation of your X-ray as given to you by our Urgent Care physician is only a preliminary report. The Radiologist will review your films and if there is a change in the diagnosis you will be notified by phone. Please make sure you have provided a working phone number so we can reach you if necessary. In the event that you had a lab culture while you were a patient in the Urgent Care, you will be notified by phone if there is a need to change your antibiotic. Please make sure you have provided a working phone number so we can reach you if necessary. [facility] has provided you with a complete list of medications post discharge. Please inform your architectural drafter/provider of your visit and for further instruction on these medications. Any specific questions regarding your chronic medications and dosages should be discussed with your primary care physician(s) and/or pharmacist. Medications to Continue That Have Not Changed Other Medications albuterol (albuterol 0.083% inh solution) 2.5 Milligram Nebulized inhalation every 6 hours. albuterol (albuterol CFC free 90 mcg/inh inhalation aerosol) Inhalation 4 times a day. atorvastatin (Lipitor 20 mg oral tablet) 1 tab(s) Oral every day. budesonide-formoterol (Symbicort 160 mcg-4.5 mcg/inh) 2 puff(s) Inhalation 2 times a day. busPIRone (busPIRone 7.5 mg oral tablet) 1 tab(s) Oral 2 times a day. cetirizine (ZyrTEC 10 mg oral tablet) 1 tab(s) Oral every day. diclofenac 75 Milligram Oral. gabapentin (gabapentin 300 mg oral capsule) 1 cap(s) Oral 3 times a day. hydroCHLOROthiazide 12.5 Milligram Oral every day. hydrOXYzine 25 Milligram. levothyroxine (Synthroid) 50 Microgram Oral every day. lisinopril (lisinopril 20 mg oral tablet) 1 tab(s) Oral every day. loperamide (Imodium A-D) 2 Milligram Oral every 4 hours. medroxyPROGESTERone (medroxyPROGESTERone 400 mg/mL intramuscular suspension) 1 Milliliter Intramuscular every week. meloxicam (Mobic 15 mg oral tablet) 1 tab(s) Oral every day. montelukast (Singulair 10 mg oral tablet) 1 tab(s) Oral every day. QUEtiapine (QUEtiapine 200 mg oral tablet) 1 tab(s) Oral 2 times a day. raNITIdine (Zantac 150) 150 Milligram Oral 2 times a day. sertraline Oral every day. Visit Information Allergies: Substance Reaction Symptoms Type Comments Claritin Tachycardia Drug methylPREDNISolone Hives Drug Vital Signs: Vitals and Measurements this Visit (last charted value for your 08/31/2019 visit) Vital Signs This Visit Temperature Temporal: 36.4 DegC Peripheral Pulse Rate: 98 bpm Respiratory Rate: 20 br/min Systolic Blood Pressure: 120 mmHg Diastolic Blood Pressure: 80 mmHg SpO2: 97 % Problems List: Problem Onset Comments Asthma Hypothyroid Patient Education Sore Throat A sore throat is pain, burning, irritation, or scratchiness in the throat. When you have a sore throat, you may feel pain or tenderness in your throat when you swallow or talk. Many things can cause a sore throat, including: ? An infection. ? Seasonal allergies. ? Dryness in the air. ? Irritants, such as smoke or pollution. ? Gastroesophageal reflux disease (GERD). ? A tumor. A sore throat is often the first sign of another sickness. It may happen with other symptoms, such as coughing, sneezing, fever, and swollen neck glands. Most sore throats go away without medical treatment. Follow these instructions at home: ? Take lyjo-ksz-sizrtst medicines only as told by your health care provider. ? Drink enough fluids to keep your urine clear or pale yellow. ? Rest as needed. ? To help with pain, try: ? Sipping warm liquids, such as broth, herbal tea, or warm water. ? Eating or drinking cold or frozen liquids, such as frozen ice pops. ? Gargling with a salt-water mixture 3?4 times a day or as needed. To make a salt-water mixture, completely dissolve ??1 tsp of salt in 1 cup of warm water. ? Sucking on hard candy or throat lozenges. ? Putting a cool-mist humidifier in your bedroom at night to moisten the air. ? Sitting in the bathroom with the door closed for 5?10 minutes while you run hot water in the shower. ? Do not use any tobacco products, such as cigarettes, chewing tobacco, and e-cigarettes. If you need help quitting, ask your health care provider. Contact a health care provider if: ? You have a fever for more than 2?3 days. ? You have symptoms that last (are persistent) for more than 2?3 days. ? Your throat does not get better within 7 days. ? You have a fever and your symptoms suddenly get worse. Get help right away if: ? You have difficulty breathing. ? You cannot swallow fluids, soft foods, or your saliva. ? You have increased swelling in your throat or neck. ? You have persistent nausea and vomiting. This information is not intended to replace advice given to you by your health care provider. Make sure you discuss any questions you have with your health care provider. Document Released: 10/27/2005 Document Revised: 05/15/2017 Document Reviewed: 07/09/2016 [employer] Patient Education ? 2019 [employer]. Viruses or Bacteria What?s got you sick? Antibiotics only treat bacterial infections. Viral illnesses cannot be treated with antibiotics. When an antibiotic is not prescribed, ask your healthcare professional for tips on how to relieve symptoms and feel better. Usual Cause Illness Viruses Bacteria Antibiotic Needed Cold/Runny Nose NO Bronchitis/Chest Cold (in otherwise healthy children and adults) NO Whooping Cough Yes Flu NO Strep Throat Yes Sore Throat (except strep) NO Fluid in the middle ear (otitis media with effusion) NO Urinary Tract Infection Yes Antibiotics Aren?t Always the Answer www.cdc.gov/getsmart GET SMART Know When Antibiotics Work U.S. Department of Health and Human Services Centers for Disease Control and Prevention June 2014 [facility] Vital Signs Date Time Vital Sign Value Performing Clinician Ning johnson 12-12-2023 12:06-0400 Body height 149.9 cm Katherine Doss MD [facility] [facility] 12-12-2023 12:06-0400 Body mass index (BMI) [Ratio] 53.73 kg/m2 Katherine Doss MD [facility] 12-12-2023 12:06-0400 Body weight 120.66 kg Katherine Doss MD [facility] 12-12-2023 12:06-0400 Diastolic blood pressure 78 mm[Hg] Katherine Doss MD [facility] [facility] 12-12-2023 12:06-0400 Heart rate 67 /min Katherine Doss MD [facility] [facility] 12-12-2023 12:06-0400 SaO2% (BldA) [Mass fraction] 96 % Katherine Doss MD Work Phone: [facility] 12-12-2023 12:06-0400 Systolic blood pressure 129 mm[Hg] Katherine Doss MD [facility] 12-22-2020 11:30-0400 Body Temperature 98.4 [degF] [employer] Work Phone: 12-22-2020 11:30-0400 BP Diastolic 73 mm[Hg] [employer] Work Phone: 12-22-2020 11:30-0400 BP Systolic 102 mm[Hg] [employer] Work Phone: 12-22-2020 11:30-0400 Pulse (Heart Rate) 79 /min [employer] Work Phone: 12-22-2020 11:30-0400 Pulse Oximetry 99 % [employer] Work Phone: 12-22-2020 11:30-0400 Respiratory Rate 18 /min [facility] Work Phone: 12-22-2020 08:14-0400 BMI (Body Mass Index) 54.13 kg/m2 [facility] Work Phone: 12-22-2020 08:14-0400 Body weight 121.56 kg [facility] Work Phone: 12-22-2020 08:14-0400 Height 149.9 cm [facility] Work Phone: 03-31-2020 12:41-0400 Body Temperature 97.2 [degF] [place] 03-31-2020 12:41-0400 BP Diastolic 77 mm[Hg] [place] 03-31-2020 12:41-0400 BP Systolic 125 mm[Hg] [place] 03-31-2020 12:41-0400 Pulse (Heart Rate) 80 /min [place] 03-31-2020 12:41-0400 Pulse Oximetry 96 % [place] 03-31-2020 12:41-0400 Respiratory Rate 17 /min [place] 03-31-2020 11:32-0400 BMI (Body Mass Index) 54.13 kg/m2 [place], [place] 03-31-2020 11:32-0400 Body weight 121.56 kg [place] 03-31-2020 11:32-0400 Height 149.9 cm [place] Encounters Encounter Date Encounter Type Care Provider Facility Start: 12-12-2023 End: 12-12-2023 ambulatory KATHERINE DOSS [facility] Start: 12-12-2023 End: 12-12-2023 Office outpatient visit 15 minutes Katherine Doss MD Work Phone: [facility] Comment on above: MUKESH (obstructive sle ep apnea) (Primary Dx) Start: 12-07-2023 End: 12-07-2023 ambulatory LAURENT BENITO Not Available Start: 11-08-2023 Refill Katherine fiore MD Work Phone: [facility] Comment on above: Moderate persistent asthma, unspecified whether complicated Start: 10-10-2023 Refill Katherine fiore MD Work Phone: [facility] Comment on above: Moderate persistent asthma, unspecified whether complicated Start: 08-17-2023 End: 08-17-2023 ambulatory LAURENT BENITO Not Available Start: 02-13-2023 End: 02-13-2023 ambulatory GEOVANNI AVALOS . Facility: Start: 01-05-2021 End: 01-05-2021 Patient encounter procedure [facility] Start: 12-22-2020 End: 12-22-2020 Patient encounter procedure [facility] Start: 12-22-2020 End: 12-22-2020 Subsequent hospital visit by physician Kolby Raymundo Work Phone: [facility] Comment on above: Post-op pain (Primar y Dx) Start: 03-31-2020 End: 03-31-2020 Patient encounter procedure INGRID CULVER [facility] Start: 03-31-2020 End: 03-31-2020 Subsequent hospital visit by physician Kolby Raymundo Work Phone: [facility] Start: 03-27-2020 End: 03-27-2020 Subsequent hospital visit by physician [facility] Covid19 Pat Screening Schedule [facility] Pre-Admit Testing Comment on above: No Show Procedures Date Procedure Procedure Detail Performing Clinician Start: 12-12-2023 Follow-up visit Follow-up KATHERINE DOSS Start: 09-11-2021 Adult depression scr eening assessment Katherine Doss MD Work Phone: Start: 12-22-2020 Glucose blood reagen t strip Kolby aRymundo Work Phone: Start: 12-22-2020 Fluoroscopy during operation Kolby Raymundo Work Phone: Start: 12-22-2020 Gonadotropin chorion ic qualitative Rosana Wilhelm Work Phone: Start: 12-22-2020 Glucose blood reagen t strip Kolby Raymundo Work Phone: Start: 06-10-2020 Microscopic observat ion [Identifier] in Cervix by Cyto stain Katherine Doss MD Work Phone: Start: 03-31-2020 DISCHARGE PATIENT MACARIO CULVER Start: 03-31-2020 Urine test visual color cmprsn meths INGRID CULVER Start: 03-31-2020 Urine test visual color cmprsn meths Kolby Raymundo Work Phone: Plan of Treatment Date Care Activity Detail Author Start: 11-26-2030 DTaP,Tdap and Td Vaccines (2 - Tdap) DTaP,Tdap and Td Vaccines (2 - Tdap) [facility] Start: 12-11-2024 Adult BMI Screening Adult BMI Screen ing [facility] Start: 06-25-2024 End: 06-25-2024 Patient encounter procedure 06/25/2024 2:30 PM EDT Office Visit [facility] [address] [address] Katherine Doss MD [address] [place] [address] [facility] Start: 04-11-2024 Adult BMI Screening Adult BMI Screen ing [facility] Start: 02-06-2024 End: 02-06-2024 Patient encounter procedure 02/06/2024 8:30 AM EDT Office Visit [facility] [place] [address] [place] [address] [facility] [place] Start: 02-02-2024 Adult BMI Follow Up Plan Adult BMI Follow Up Plan [facility] Start: 02-02-2024 Tobacco Screening Tobacco Screening [facility] Start: 12-12-2023 End: 12-12-2023 Patient encounter procedure 12/12/2023 12:15 PM EDT Office Visit [facility] [address] [place] [address] Katherine Doss MD [address] [place] [address] [facility] Start: 06-10-2023 Screening for malign ant neoplasm of cervix Pap Smear [facility] Start: 06-03-2023 COVID-19 Vaccine () COVID-19 Vaccine () [facility] Start: 06-03-2023 Influenza vaccination Influenza Vacc ine [facility] Start: 09-11-2022 Depression Screening Depression Scre ening [facility] Start: 01-05-2021 End: 01-05-2021 Hospital Encounter [facility] Comment on above: 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 Start: 06-03-2020 Influenza vaccination M [place], [place] Start: 2006 Screening for malign ant neoplasm of cervix Cervical cancer screen [place], [place] Start: 2004 DTaP/Tdap/Td vaccine (1 - Tdap) DTaP/Tdap/Td vaccine (1 - Tdap) [place] Start: 2003 Diabetic foot examination Diabetic Foot Exam [facility] Start: 2001 COVID-19 Vaccine (1) COVID-19 Vaccin e (1) [facility] Work Phone: Start: 2000 HIV screening HIV screen [place], [place] Start: 1995 Lipid panel Lipid screen [facility] Work Phone: Start: 1986 Varicella vaccine (1 of 2 - 2-dose childhood series) Varicella vaccine (1 of 2 - 2-dose childhood series) [place], [place] Start: 1985 Creatinine measurement Creatinine mo nitoring [facility] Work Phone: Start: 1985 Glaucoma screening Diabetic Op hthalmology Exam [facility] Start: 1985 Hepatitis C screening Hepatitis C sc vidal [facility] Phone: Start: 1985 Potassium monitoring Potassium monit mikayla [facility] Phone: End: 12-23-2020 Blood glucose - POCT Blood glucose - POCT Point of Care Testing Routine One Time for 1 Occurrences starting 12/23/2020 until 12/23/2020 [employer] Phone: Comment on above: One Time for 1 Occur rences starting 12/23/2020 until 12/23/2020 Continuous pulse oximetry Pulse oximetry, continuous Respiratory Care Routine Every 4hr until discontinued starting 12/23/2020 [employer] Phone: Comment on above: Every 4hr until disc ontinued starting 12/23/2020 End: 03-27-2020 COVID-19 COVID-19 Lab Routine One Time for 1 Occurrences starting 03/27/2020 until 03/27/2020 [employer] [place], [place] Comment on above: One Time for 1 Occur rences starting 03/27/2020 until 03/27/2020 Immunizations Immunization Date Immunization Notes Care Provider Fa [facility] 11-26-2020 diphtheria, tetanus toxoids and pertussis vaccine Katherine Doss MD [facility] 06-26-2020 influenza virus vaccine, unspecified formulation Katherine Doss MD Work Phone: [facility] [employer] Payers Date Payer Category Payer Unknown [facility] xxxxxxxxxxxx 2014-Present [phone] [address] [place] [address] xxxxxxxxxxxx [id number] 2003 Medicaid [place] [employer] [place] [employer] [id number] 2003-Present [phone] [address] [place] [address] [id number] 1985 Unknown [id number] 1985 Unknown [id number] 1985 Unknown [id number] 1985 Unknown [id number] 1985 Unknown [id number] 9 1985 Unknown [id number] 9 1985 Unknown [id number] 6 1959 Unknown [id number] Social History Date Type Detail Facility Start: 03-31-2020 End: 09-13-2022 Tobacco smoking status [facility] Never smoker [facility] Start: 03-31-2020 End: 12-22-2020 Alcohol intake Lifetime non-drinker (finding) [place] Start: 03-31-2020 History SDOH Alcohol Frequency 1 [place] Sex Assigned At Not on file [place] Exposure to SARS-CoV -2 (event) Unable to assess [place] Start: 12-22-2020 End: 09-13-2022 Tobacco use and exposure Never used [facility] Phone: Exposure to SARS-CoV -2 (event) Not sure [facility] Phone: Start: 02-01-2023 End: 12-12-2023 Alcohol intake Current non-drinker of alcohol (finding) [facility] Start: 11-13-2020 End: 02-01-2023 History of Social function [facility] Start: 11-13-2020 End: 02-01-2023 Tobacco use panel [facility] Adolescent depressio n screening assessment 3 [facility] Start: 1985 Sex Assigned At Female [facility] Start: 04-30-2019 Gender identity Identifies as female gender (finding) [facility] Medical Equipment Procedure Code Equipment Code Equipment Original Text Equipment Identifier Dates Kit Lead Sure Scan Interstim Mri [id number] Start: 12-22-2020 Implant Lead-01/05/2021 [id number] Start: 01-05-2021 Neuro Stimulator-01/06/20 [id number] Start: 01-05-2021 Comment on above: Description: interst im II bladder stimulator History of Present illness Narrative 12-12-2023 Katherine Doss MD - 12/12/2023 12:15 PM EDT Note Date & Type Note Facility 12-12-2023 History of Presen t illness Narrative Images from the original note were not included. [address] [place] [address] Patient: Angela Hendrickson Date of : 1985 Encounter Date: 12/12/2023 History of Present Illness: The patient is a 38 y.o. female, is here for follow up of MUKESH. She is here today unaccompanied. Since our last visit she did try the wisp nasal however she had significant difficulty tolerating the mask. Mask interface: nasal pillows (wisp nasal sampled April 2023) [] Epistaxis [] Aerophagia [] Pressure intolerance [] Skin irritation [] Mask leak BT - 9 pm (listens to phone, dark, in bed, no pets, no bed partner) EUGENE - minutes WASO - depends on fluid intake WT - 7-7:45am Nap - sometimes Sleep aid - started previously trazodone 50 mg (around 8pm), quetiapine (stopped 2022 for weight gain) Cleaning machine / cleaning supplies = none Nocturnal behaviors / RLS = nightmares monthly Drowsy driving = does not drive Physical Exam: BP 129/78 Pulse 67 Ht 149.9 cm (4' 11 ) Wt 120.7 kg (266 lb) SpO2 96% BMI 53.73 kg/m General Appearance - Awake, alert, oriented, in no acute distress 05/14/2019 7:34 PM 03/22/2022 8:25 PM 04/11/2023 9:00 AM [place] Sleepiness Scale Sitting and Reading 2 0 0 Watching TV 2 0 3 Sitting inactive in a public place (theater, meeting) 1 0 0 As a passenger in a car for an hour without a break 0 0 0 Lying down in the afternoon to rest 3 2 3 Sitting and talking to someone 0 0 0 Sitting quietly after lunch (without alcohol) 2 0 0 In a car, while stopped for a few minutes in traffic 0 0 0 Total 10 2 6 Assessment: 1. Obstructive sleep apnea (AHI 21.9, minimum saturation 84%, PSG March 2022, weight 273) currently on auto CPAP 9-10 cm of water with suboptimal compliance due to pressure intolerance 2. Mild intermittent asthma, currently controlled 3. Nonepileptic seizures 4. Chronic sleep maintenance insomnia 5. History of hives with methylprednisolone, previously tolerated Advair 6. Obesity, BMI 53 Plan: 1. Dentist to fit for oral mandibular advancement device (OMAD) 2. Continue to work on weight loss 3. Discussion about inspire, not a candidate at this time 4. Follow up in 6 months Katherine Doss MD Pulmonary and Sleep Medicine [facility] Past Medical, Family, and Social History Update: The following portions of the patient's history were reviewed and updated as appropriate: allergies, current medications, past family history, past medical history, past social history, past surgical history and problem list. Past Medical History: Diagnosis Date Asthma Chronic kidney failure HTN (hypertension) Hypothyroid Panic attack Past Surgical History: Procedure Laterality Date CHOLECYSTECTOMY IMPLANTATION VAGAL NERVE STIMULATOR 2020 Family History Problem Relation Age of Onset Heart disease Father Emphysema Father No Known Problems Mother Breast cancer Neg Hx Colon cancer Neg Hx Ovarian cancer Neg Hx Uterine cancer Neg Hx Current Outpatient Medications Medication Sig Dispense Refill ARIPiprazole (ABILIFY) 10 mg tablet Take 1 tablet (10 mg total) by mouth in the morning. atorvastatin (LIPITOR) 20 mg tablet busPIRone (BUSPAR) 15 mg tablet 4 (four) times a day. cetirizine (ZyrTEC) 10 mg tablet 1 tablet Orally Once a day for 30 day(s) EASY TOUCH ALCOHOL PREP PADS pads, medicated famotidine (PEPCID) 20 mg tablet gabapentin (NEURONTIN) 300 mg capsule 1 capsule (300 mg total). hydroCHLOROthiazide (MICROZIDE) 12.5 mg capsule 1 capsule in the morning Orally Once a day for 30 day(s) hydrOXYzine (VISTARIL) 25 mg capsule Take 1 capsule (25 mg total) by mouth 3 (three) times a day as needed. levothyroxine (SYNTHROID, LEVOTHROID) 50 MCG tablet 1 tablet on an empty stomach in the morning Orally Once a day lisinopriL (PRINIVIL,ZESTRIL) 2.5 mg tablet 1 tablet Orally Once a day for 30 day(s) montelukast (SINGULAIR) 10 mg tablet Take 1 tablet (10 mg total) by mouth nightly. MYRBETRIQ 50 mg tablet extended release 24 hr Take 1 tablet (50 mg total) by mouth in the morning. omeprazole (PriLOSEC) 40 mg capsule Take 1 capsule (40 mg total) by mouth nightly. QUEtiapine (SEROquel) 100 mg tablet nightly. Takes 1 and a 1/2 tablets by mouth Daily sertraline (ZOLOFT) 100 mg tablet Take 1 tablet (100 mg total) by mouth in the morning. SYMBICORT 160-4.5 mcg/actuation inhaler INHALE TWO (2) PUFFS BY MOUTH TWICE DAILY 10.2 g 10 VENTOLIN HFA 90 mcg/actuation inhaler INHALE 2 PUFFS BY MOUTH EVERY 4-6 HOURS NEEDED 18 g 10 VITAMIN D3 50 mcg (2,000 unit) capsule Take 1 capsule (2,000 Units total) by mouth in the morning. No current facility-administered medications for this visit. (All medications reviewed and updated by provider since last office visit or hospitalization) Allergies: Claritin [loratadine], Methylprednisolone, and Oxycodone Tobacco History: Social History Tobacco Use Smoking Status Never Smokeless Tobacco Never (If patient a smoker, smoking cessation counseling offered) Social History: Social History Substance and Sexual Activity Alcohol Use No documented in this encounter [facility] Instructions 03-11-2024 Patient Instructions Note Date & Type Note Facility 12-12-2023 Instructions Katherine Doss MD - 12/12/2023 12:15 PM EDT 1. Dentist to fit for oral mandibular advancement device (OMAD) 2. Continue to work on weight loss 3. Discussion about inspire, not a candidate at this time 4. Follow up in 6 months [facility] Evaluation [facility] Note Date & Type Note Facility Evaluation note Diagnosis Moderate persistent asthma, unspecified whether complicated documented in this encounter [facility] Evaluation note Note Date & Type Note Facility Evaluation note Diagnosis MUKESH (obstructive sleep apnea)- Primary Obstructive sleep apnea (adult) (pediatric) [facility] Note Date & Type Note Facility Instructions Not on filedocumented in this en counter [facility] Dis[facility] Instructions * Instructions* Suze Rodrigues RN - 03/31/2020 -urinate every 2.5 to 3 hrs -Call Dr Raymundo with any questions or concerns documented in this encounter* Instructions* Kolby Raymundo MD - 12/22/2020 -My office will contact you in the next 2-3 business days to schedule a follow- up appointment. If you do not hear from my office in a timely manner please feel free to call us at [phone]. Follow-up should be scheduled for 1 week. -Regular Diet. -Resume all home medications. -Do not operative heavy machinery if you are taking Percocet (oxycodone), Miranda/Vicodin (hydrocodone), Tylenol #3 (codeine), or Ultram (tramadol). These medications may affect your reaction time and impair your decision making abilities. Additionally, these medications are quite constipating. To combat this you will be prescribed a medication called Colace (docusate sodium). We recommend that youtake this stool softener twice daily. -Walking is important and encourage. Although you may experience pain after leaving us, frequent short walks are important. Best, Dr. Kolby Raymundo MD documented in this encounter Advance Directives No Advanced Directives Records FoundDocuments on File Type Date Recorded Patient Air Traffic Control Equipment Repairer Expl anation Advance Directives and Living Will Power of Building Carpenter Helper Documents on File Type Date Recorded Patient Air Traffic Control Equipment Repairer Expl anation Advance Directives and Living Will Power of Building Carpenter Helper Documents on File Type Date Recorded Patient Air Traffic Control Equipment Repairer Expl anation ACP-Advance Directive ACP-Power of Building Carpenter Helper Summary Purpose Family History No Family History Records FoundNo Family History Records FoundNo Family History Records FoundNo Family History Records FoundNo Family History Records FoundNo Family History Records FoundNo Family History Records FoundNo Family History Records Found Assessments Diagnosis Post-op pain- Primary Other acute postoperative pain Additional Source Comments Reason for Visit (unrecogniz ed section and content) Status Reason Specialty Diagnoses / Procedures Re ferred By Contact Referred To Contact Diagnoses Urinary incontinence in female DX URINARY INCONTINENCE Procedures NE COMPLEX CYSTOMETROGRAM VOIDING PRESSURE STUDIES URODNYAMICS Kolby Raymundo MD [facility] [place] [address] [facility] Status Reason Specialty Diagnoses / Procedures Re ferred By Contact Referred To Contact Diagnoses Urinary incontinence DX URINARY INCONTINENCE Procedures NE INC IMPLTJ NEUROSTIMULATOR ELTRD SACRAL NERVE INTERSTIM STAGE ONE - LEANDRO Kolby Raymundo MD [address] [place] [address] [facility] Reason Comments Med Refill Reason Comments Follow-up Sleep Apnea DME: MSCNot using PA P machineSampled Wisp Fit Pack at last visit INFORMATION SOURCE (unrecogn ized section and content) DATE CREATED AUTHOR 07/07/2020 Yimi Griffiths [facility] DATE CREATED AUTHOR AUTHOR'S ORGANIZ ATION [facility] DATE CREATED AUTHOR AUTHOR'S ORGANIZ ATION [facility]22[facility] DATE CREATED AUTHOR AUTHOR'S ORGANIZ ATION 01/06/2021 [facility] DATE CREATED AUTHOR AUTHOR'S ORGANIZ ATION 09/11/2021 [facility] DATE CREATED AUTHOR AUTHOR'S ORGANIZ ATION 02/16/2023 [facility] DATE CREATED AUTHOR AUTHOR'S ORGANIZ ATION 12/07/2023 [facility] DATE CREATED AUTHOR AUTHOR'S ORGANIZ ATION 12/13/2023 [facility] Ordered Prescriptions (unrec ognized section and content) Prescription Sig Dispensed Refills Start Date End Da te cephALEXin (KEFLEX) 500 MG capsule Take 1 capsule by mouth 3 times daily for 5 days 15 capsule 0 12/22/2020 12/27/2020 traMADol (ULTRAM) 50 MG tabletIndications:Post-o p pain Take 1 tablet by mouth every 6 hours as needed for Pain for up to 10 days. 10 tablet 0 12/22/2020 01/01/2021 Care Teams (unrecognized sec tion and content) Angiographer Relationship Specialty Start Date End Date Ingrid Culver APRN-MANAGING SUPERVISOR [address] [facility], [place] [address] PCP - General Family Medicine 10/22/19 Angiographer Relationship Specialty Start Date End Date Lizbeth Snyder APRN-CONTRACT DESIGN AGENT [address] [place] [address] PCP - General 12/10/23 FOR RECORDS PERTAINING TO PATIENTS WHO ARE OR HAVE BEEN ENROLLED IN A CHEMICAL DEPENDENCY/SUBSTANCEABUSE PROGRAM, SOME INFORMATION MAY BE OMITTED. This clinical summary was aggregated from multiple sources. Caution should be exercised in using it in the provision of clinical care. This summary normalizes information from multiple sources, and as a consequence, information in this document may materially change the coding, format and clinical context of patient data. In addition, data may be omitted in some cases. CLINICAL DECISIONS SHOULD BE BASED ON THE PRIMARY CLINICAL RECORDS. [employer] provides no warranty or guarantee of the accuracy or completeness of information in this document.
== END 2023-12-27 13:48 | disposition home or self-care (01) ==
LOC: MN 13:48
PROVIDERS: PCP Nurse Practitioner Family
DX: E11.9 Type 2 diabetes mellitus without complications (principal); Z79.84 Long term (current) use of oral hypoglycemic drugs; Z79.85 Long-term (current) use of injectable non-insulin antidiabetic drugs
CPT/HCPCS: G0108

== ENCOUNTER 2024-07-20 14:22 | Outpatient (OUT) | payer OTHER, SELFPAY ==
--- OUTSIDE RECORDS SUMMARY | 2024-07-20 14:27 | XMS_ITS | CCD ---
Author Organization [facility] Care Team Providers Care Size Worker Name Role Phone Ingrid Culver Primary Care Provider INGRID CULVER Primary Care Unavailable KOLBY RAYMUNDO Attending Unavailable KOLBY RAYMUNDO Admitting Unavailable KOLBY RAYMUNDO Admitting Unavailable INGRID CULVER Primary Care Unavailable KOLBY RYAMUNDO Attending Unavailable KOLBY RAYMUNDO Admitting Unavailable KOLBY RAYMUNDO Attending Unavailable INGRID CULVER Primary Care Unavailable GEOVANNI CUEVAS Admitting Unavailable VIANCA BLANCHARD Consulting Unavailable DR DIONICIO BARBOUR Primary Care Unavailable GEOVANNI CUEVAS Attending Unavailable ANDREINA DHILLON Consulting Unavailable GEOVANNI CUEVAS Consulting Unavailable LUISA RANGEL Consulting Unavailable Palomo CLINICAL WRITER-HARDWARE DEVELOPERIngrid Primary Care Provider Claudio CLINICAL WRITER-TOOL AND PRODUCTION PLANNER, Lizbeth Primary Care [facility] KATHERINE DOSS Attending Unavailable INGRID CULVER Referring Unavai lable ROHRBACHER, LIZBETH Primary Care Unavailable INGRID CULVER Referring Unavai lable ROHRBACHER, LIZBETH Primary Care Unavailable DWAYNE CEJA Attending Unavailable TRAVISRBACHERLIZBETH Referring Unavailable ROHRBACHER, LIZBETH Primary Care Unavailable ROHRBACHERLIZBETH Referring Unavailable ROHRBACHER, LIZBETH Primary Care Unavailable LAURENT SIERRA Attending Unavailable LAURENT SIERRA Attending Unavailable DELMY YEPEZ Attending Unavailable LAURENT PEPPER Attending Unavailable DELMY YEPEZ Referring Unavailable LAURENT SIERRA Attending Unavailable DELMY YEPEZ Attending Unavailable LAURENT SIERRA Attending Unavailable Ingrid Culver MD Unavailable Claudio TOOL AND PRODUCTION PLANNER, Lizbeth Fajardo Primary Care Provider Allergies Allergy Classification Reported Allergen(s) Allergy Type Date of Onset Reaction(s) Facility (7 sources) Loratadine; Translations: [LORATADINE] Drug Allergy 07-20-20 17 Palpitations [place] (8 sources) methylPREDNISolone; Translations: [METHYLPREDNISOLONE] Drug Allergy 04-09-20 19 Hives, Unknown [place] (1 source) Loratadine Drug Allergy 03-20-20 17 [facility] Repository (2 sources) metFORMIN; Translations: [METFORMIN] Drug Allergy 02-14-20 23 [facility] (1 source) methylPREDNISolone Drug Allergy [facility] Repository (6 sources) oxyCODONE; Translations: [OXYCODONE] Drug Allergy 07-22-20 21 Rash, Unknown [facility] (1 source) Loratadine Allergy to substance 07-20-20 17 Palpitations, Unknown [facility] (1 source) metFORMIN Drug Allergy 04-28-20 23 Unknown [facility] Healthcare Medications Current Medications Medication Drug Class(es) Dates Sig (Normalized) Sig (Original) acetaminophen 325 mg / HYDROcodone bitartrate 5 mg oral tablet (1 source) Opioid Agonist HYDROcodone-acet am inophen ([place]) 5-325 MG tablet Active [id number] 200 actuat albuterol 0.09 mg/actuat metered dose [...] hours as needed for Wheezing 0 Active Apple Cider Vinegar (1 source) Apple Cider Vine gar 188 MG capsule Apple Cider Vinegar Active ARIPiprazole 10 mg oral tablet (3 sources) Atypical Antipsychotic Start: 05-19-20 22 take 1 tablet by mouth in the morning ARIPiprazole (ABILIFY) 10 mg tablet Take 1 tablet (10 mg total) by mouth in the morning. 0 05/19/2022 Active atorvastatin 20 mg oral tablet (6 sources) HMG-CoA Reductase Inhibitor Start: 12-10-19 atorvastatin (LIPITOR) 20 mg tablet take 1 [...] Active busPIRone hydrochloride 15 mg oral tablet (7 sources) Start: 07-21-2021 busPIRone (BUSPAR) 15 mg tablet 4 (four) times a day. 0 07/21/2021 Active take 1 tablet by mouth once carlos y busPIRone (Buspar) 15 MG tablet Take 15 mg by mouth Daily Active take 1 tablet by mouth twice celeste ly busPIRone (BUSPAR) 10 MG tablet Take 10 mg by mouth 2 times daily 0 Active calcium chloride 0.0014 meq/ ml / potassium chloride 0.004 meq/ml / sodium chloride 0.103 meq/ml / sodium lactate 0.028 meq/ml injectable solution (1 source) Start: 12-23-2020 lactated ringe rs infusion Start: 12-23-2020 lactated ringe rs infusion calcium citrate 1500 mg / cholecalciferol 200 unt oral tablet (1 source) Vitamin D Calcium Citrate-Vitamin D (Calcium + D) 315-5 MG-MCG tablet Calcium + D Active cephalexin 500 mg oral capsule (1 source) Cephalosporin Antibacterial Start: End: take 1 capsule by mouth three times daily cephALEXin (KEFLEX) 500 MG capsule Take 1 capsule by mouth 3 times daily for 5 days 15 capsule 0 12/22/2020 12/27/2020 Active cetirizine hydrochloride 10 mg oral tablet (7 sources) Histamine-1 Receptor Antagonist cetirizine (ZyrTEC) 10 MG tablet Active cholecalciferol 0.05 mg oral capsule (3 sources) Vitamin D Start: 022 take 1 capsule by mouth in the morning VITAMIN D3 50 mcg (2,000 unit) capsule Take 1 capsule (2,000 Units total) by mouth in the morning. 0 12/03/2021 Active famotidine 20 mg oral tablet (3 sources) Histamine-2 Receptor Antagonist Start: 023 famotidine (PEPCID) 20 mg tablet gabapentin 400 mg oral capsule (7 sources) Anti-epileptic Agent Start: 024 End: 025 take 1 capsule by mouth in the morning, then take 1 capsule by mouth in the evening, then take 1 capsule by mouth at bedtime gabapentin (Neurontin) 400 MG capsule Indications: Polyneuropathy Take 1 capsule (400 mg) by mouth in the morning and 1 capsule (400 mg) in the evening and 1 capsule (400 mg) before bedtime. 270 capsule 3 04/12/2024 04/12/2025 Active gabapentin (NEUR ONTIN) 300 mg capsule 1 capsule (300 mg total). 0 Active hydroCHLOROthiazide 25 mg oral tablet (7 sources) Thiazide Diuretic take 1 tablet by mouth once daily hydroCHLOROthiazide (HYDRODiuril) 25 MG tablet Take 25 mg by mouth Daily Active take 1 capsule by mo ut once daily in the morning hydroCHLOROthiazide (MICROZIDE) 12.5 mg capsule 1 capsule in the morning Orally Once a day for 30 day(s) 0 Active hydrOXYzine pamoate 25 mg oral capsule (4 sources) Antihistamine Start: 07-21-2021 take 1 capsule by mouth three times daily as needed hydrOXYzine (VISTARIL) 25 mg capsule Take 1 capsule (25 mg total) by mouth 3 (three) times a day as needed. 0 07/21/2021 Active take 1 capsule by mo uth twice daily as needed hydrOXYzine pamoate (Vistaril) 25 MG capsule TAKE 1 CAPSULE BY MOUTH TWICE PER DAY NEEDED Active isopropyl alcohol 0.7 ml/ml medicated pad (3 sources) Start: 05-27-2020 EASY TOUCH ALCOHOL PREP PADS pads, medicated levothyroxine sodium 0.05 mg oral tablet (7 sources) l-Thyroxine levothyroxine (Synthroid, Levoxyl) 50 MCG tablet Active 10 ml lidocaine hydrochloride 10 mg/ml injection (1 source) Antiarrhythmic, Amide Local Anesthetic Start: 12-23-2020 End: 12-23-2020 lidocaine PF 1 % injection 1 mL lisinopril 2.5 mg oral tablet (7 sources) Angiotensin Converting Enzyme Inhibitor lisinopril 2.5 MG tablet Active loperamide hydrochloride 2 mg oral capsule (4 sources) Opioid Agonist loperamide (Imodium) 2 MG capsule take 1 capsule by mouth if needed AFTER EACH LOOSE STOOL NOT TO EXCEED 8 CAPSULES PER DAY Active meloxicam 15 mg oral tablet (4 sources) Nonsteroidal Anti-inflammatory Drug take 1 tablet by mouth once daily at mealtime meloxicam (Mobic) 15 MG tablet take 1 tablet by mouth once daily with food if needed for DISCOMFORT Active End: 12-22-2020 Meloxicam (MOBIC PO) Take by mouth daily Patient does not know dose. 0 12/22/2020 Discontinued (LIST CLEANUP) Meloxicam (MOBIC PO) Take by mouth daily Patient does not know dose. 0 Active metFORMIN hydrochloride 1000 mg oral [...] oral tablet (3 sources) beta3-Adrenergic Agonist Start: 11-13-19 take 1 tablet by mouth every twenty-four hours in the morning MYRBETRIQ 50 mg tablet extended release 24 hr Take 1 tablet (50 mg total) by mouth in the morning. 0 11/13/2021 Active montelukast 10 mg oral tablet (4 sources) Leukotriene Receptor Antagonist montelukast (Singulair) 10 MG tablet Active nitrofurantoin, macrocrystals 25 mg / nitrofurantoin, monohydrate 75 mg oral capsule (1 source) Nitrofuran Antibacterial take 1 capsule by mouth every twelve hours at mealtime nitrofurantoin, macrocrystal-monohy drate, (Macrobid) 100 MG capsule TAKE 1 CAPSULE BY MOUTH EVERY 12 HOURS WITH FOOD Active omeprazole 40 mg delayed release oral capsule (7 sources) Proton Pump Inhibitor Start: 11-23-19 take 1 capsule by mouth once daily omeprazole (PriLOSEC) 40 mg capsule Take 1 capsule (40 mg total) by mouth nightly. 0 11/23/2022 Active omeprazole (PriL OSEC) [address] capsule Active take 1 capsule by mouth once celeste ly omeprazole (PRILOSEC) 10 MG delayed release capsule Take 10 mg by mouth daily 0 Active ondansetron 4 mg oral tablet (1 source) Serotonin-3 Receptor Antagonist ondansetron (Zofran) 4 MG tablet Active 24 hr oxybutynin chloride 10 mg extended release oral tablet (4 sources) Cholinergic Muscarinic Antagonist Start: 09-23-2022 oxybutynin XL (Ditropan-XL) 10 MG 24 hr tablet 09/23/2022 Active take 1 tablet by mouth twice celeste ly oxybutynin (DITROPAN-XL) 10 MG extended release tablet Take 10 mg by mouth 2 times daily 0 Active Ozempic, 1 MG/DOSE, 4 MG/3ML solution pen-injector (1 source) Start: 04-19-2023 inject 1 [IU] by subcutaneous injection every week Ozempic, 1 MG/DOSE, 4 MG/3ML solution pen-injector INJECT 1 UNITS DOSE SUBCUTANEOUSLY ON TUESDAY OF EACH WEEK 04/19/2023 Active 12 hr pseudoephedrine hydrochloride 120 mg extended release oral tablet (1 source) alpha-Adrenerg ic Agonist pseudoephedrine ER (Sudafed-12 Hour) 120 MG 12 hr tablet Active sertraline 100 mg oral tablet (7 sources) Serotonin Reuptake Inhibitor Start: 07-21-2021 take 1 tablet by mouth in the morning sertraline (ZOLOFT) 100 mg tablet Take 1 tablet (100 mg total) by mouth in the morning. 0 07/21/2021 Active take 1 tablet by mouth once carlos y sertraline (ZOLOFT) 50 MG tablet Take 50 mg by mouth daily 0 Active SITagliptin 100 mg oral tablet (3 sources) Dipeptidyl Peptidase 4 Inhibitor Start: 09-21-2023 take 1 tablet by mouth once daily Januvia 100 MG tablet Take 100 mg by mouth Daily 09/21/2023 Active take 2 tablets by mouth in the m orning SITagliptin (Januvia) 50 MG tablet Take 100 mg by mouth in the morning. Active traMADol hydrochloride 50 mg oral tablet [...] Active traZODone hydrochloride 50 mg oral tablet (2 sources) Serotonin Reuptake Inhibitor Start: 04-21-2023 take 1 tablet by mouth at bedtime traZODone (Desyrel) 50 MG tablet Take 50 mg by mouth at bedtime. 04/21/2023 Active Turmeric extract (1 source) Turmeric powder as directed Active Completed/Discontinued Medications Medication Drug Class(es) Dates Sig (Normalized) Sig (Original) QUEtiapine 100 mg oral tablet (4 sources) Atypical Antipsychotic Start: 06-02-2020 End: 12-12-2023 [...] anxiety disorder] Onset: 07-29-2021 07-29-2021 Chronic Asthma (3 sources) Moderate persistent asthma; Translations: [Moderate persistent asthma, uncomplicated] Onset: 03-06-2024 10-10-2023 Chronic Chronic ulcer of skin (4 sources) Non-pressure chronic ulcer of right heel and midfoot limited to breakdown of skin; Translations: [Ulcer of heel and midfoot] Onset: 07-29-2021 07-29-2021 Chronic Contraceptive and procreative management (1 source) Encounter for sterilization; Translations: [Encounter for sterilization] Onset: 03-06-2024 Episodic Developmental disorders (4 sources) Developmental academic disorder; Translations: [Developmental disorder of scholastic skills, unspecified] Onset: 07-29-2021 07-29-2021 Chronic Diabetes mellitus with complications (1 source) Type 2 diabetes mellitus with diabetic polyneuropathy; Translations: [Type 2 diabetes mellitus with diabetic polyneuropathy] Onset: 05-03-2019 Chronic Diabetes mellitus without complication (3 sources) Type 2 diabetes mellitus; Translations: [Type 2 diabetes mellitus without complications] Onset: 05-03-2019 05-03-2019 Chronic E Codes: Fall (1 source) Unspecified fall, initial encounter; Translations: [UNSPECIFIED FALL INITIAL ENCOUNTER] Onset: 02-15-2023 Episodic Essential hypertension (4 sources) Hypertensive disorder; Translations: [Essential (primary) hypertension] Onset: 05-03-2019 05-03-2019 Chronic Menopausal disorders (1 source) Hormone replacement therapy; Translations: [HORMONE REPLACEMENT THERAPY] Onset: 02-15-2023 Episodic Miscellaneous mental health disorders (4 sources) Dissociative convulsions; Translations: [Conversion disorder with seizures or convulsions] Onset: 02-10-2022 02-10-2022 Chronic Mood disorders (4 sources) Recurrent major depressive episodes, moderate ; Translations: [Major depressive disorder, recurrent, moderate] Onset: 07-29-2021 07-29-2021 Chronic Other aftercare (1 source) Other 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 (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; Translations: [OTH ASSISTED CURRENT DRUG THERAPY] Onset: 02-15-2023 Episodic Other lower respiratory disease (1 source) Pleurodynia; Translations: [PLEURODYNIA] Onset: 02-15-2023 Episodic Other nervous system disorders (1 source) Postoperative pain ; Translations: [Post-op pain] Episodic Other nutritional; endocrine; and metabolic disorders (3 sources) Severe obesity; Translations: [Morbid (severe) obesity due to excess calories] Onset: 05-03-2019 05-03-2019 Chronic Other nutritional; endocrine; and metabolic disorders (1 source) Morbid (severe) obesity due to excess calories; Translations: [Morbid (severe) obesity due to excess calories] Onset: 02-06-2024 Chronic Residual codes; unclassified (1 source) Obstructive sleep apnea syndrome; Translations: [Obstructive sleep apnea (adult) (pediatric)] 12-12-2023 Chronic Residual codes; unclassified (1 source) Sleep apnea Onset: 12-12-2023 Chronic Sprains and strains (1 source) Strain of muscle, fascia and tendon of lower back, initial encounter; Translations: [STRAIN MUSC FASC TENDON LW BACK INT] Onset: 02-15-2023 Episodic Unclassified (2 sources) Tubal Consult Onset: 02-21-2024 Unclassified (1 source) Annual Exam Onset: 02-06-2024 Past or Other Problems Problem Classification Problem Date Documented Da te Episodic/Chronic Mood disorders (3 sources) Mood disorders Onset: 09-11-2021 09-11-2021 Other lower respiratory disease (3 sources) Dyspnea; Translations: [Shortness of breath] Onset: 05-03-2019 05-03-2019 Episodic Other lower respiratory disease (1 source) Shortness of breath; Translations: [Shortness of breath] Onset: 05-03-2019 Episodic Unclassified (3 sources) Onset: 02-01-2023 [...] by: ANDREINA DHILLON Date: 2023-02-13 21:36 Normal [facility] CT LUMBAR SPINE WITH OUT CONTRAST, 02/13/2023 [...] by: Kalli RANGEL Date: 2023-02-13 20:[address] [facility] XR RIBS RT PA Marco Antonio 3 XR RIBS RT PA CH EXAM: XR RIBS RT PA CH HISTORY: Pain COMPARISON: Chest x-ray 02/18/2020 TECHNIQUE: 5 view study FINDINGS: Right ribs show normal architecture. The right lung is well expanded. No pneumothorax. IMPRESSION: No evidence for acute right rib fracture. Electronically authenticated by: Kalli RANGEL Date: 2023-02-13 20:[address] [facility] [id number] 01-05-2021 SARS-CoV-2,Rapid Not Detected Normal [facility] Comment on above: Result Comment: Rapid NAAT: [...] management decisions. Fact sheet for Healthcare Providers: https://www.fda.gov/media/460418/download Fact sheet for Patients: https://www.fda.gov/media/754820/download Methodology: Isothermal Nucleic Acid Amplification Performed By: #### C OVRB #### [employer] [address] [place] [id number] Warehouse Manager: Hussain Saldivar MD FLUORO FOR SURGICAL PROCEDUR ESon 12-22-2020 FLUORO FOR SURGICAL PROCEDURES Radiology exam is complete. No Radiologist dictation. Please follow up with ordering provider. Final result Normal [facility] Radiology exam is complete. No Radiologist dictation. Please follow up with ordering provider. [email or web address] Phone: HCG Screen, Bloodon 12-23-19 21 HCG Qn Negative Normal NEG [facility] Comment on above: Result Comment: Spec imens with hCG levels near the threshold of the test (25 mIU/mL) may give a negative or indeterminate result. In such cases, another test should be performed with a new specimen in 48-72 hours. If early is suspected clinically in this setting, correlation with quantitative serum b-hCG level is suggested. Performed By: #### H #### [facility] [address] [place] [address] Warehouse Manager: Darian Knutson MD HCG, SERUM, QUALITATIVEon hCG Qual Negative NEGATIVE [email or web address] Phone: Comment on above: Specimens with hCG [...] [Mass/Vol] 89 mg/dL 65 - 105 mg/dL [email or web address] Phone: Glucose [Mass/Vol] 99 mg/dL 65 - 105 mg/dL [email or web address] Phone: Operative Reporton Operative Report MR#: [id number] S [facility] Pt. Name: Angela Hendrickson Room #: 0C Discharge Date: Birthdate: 1985 OPERATIVE REPORT DATE OF SURGERY: 10/09/2020 SURGEON: Tee Shahid M.D. PREOPERATIVE DIAGNOSIS: Triangular fibrocartilage complex tear, right wrist. POSTOPERATIVE DIAGNOSIS: Triangular fibrocartilage complex tear, right wrist. PROCEDURE: Arthroscopic examination and debridement of triangular fibrocartilage complex on the right wrist. SIGNAL MAINTENANCE TECHNICIAN: Oracio Ibanez M.D. ANESTHESIA: Regional with an [...] Shahid M.D. Date Trans: 10/09/2020 11:19 A/porter [id number] cc: Ingrid Culver C.N.P. [address] [facility] [facility] [place] [address] Normal [facility] POC GLUCOSE LABon 10-09-2020 Glucose [Mass/Vol] 100 mg/dL Normal 70-100 [facility] Comment on above: Performed By: #### 8 [id number] #### [facility] [address] [place] [address], [place] Glucose [Mass/Vol] 111 mg/dL High 70-100 [facility] Comment on above: Performed By: #### 8 5499 #### [facility] [address] [place] [address], [place] Coding Summaryon 07-29-2020 Coding Summary CODING DATE: 020 [facility] STATUS: Home PAYOR: Medicaid HMO ADMIT DX: REASON FOR VISIT DX: R45.851 Suicidal ideations FINAL DX: PRINCIPAL: F32.9 Major depressive disorder, single episode, unspecified SECONDARY: R45.851 Suicidal ideations E11.9 Type 2 diabetes mellitus without complications I10 Essential (primary) hypertension Z79.84 [facility] (current) use of oral hypoglycemic drugs PYMT PROC APC STAT DESCRIPTION DOCTOR NAME DATE NOTE: The code number assigned matches the documented diagnosis and / or procedure in the patient's chart. However, the narrative phrase printed from the coding software may appear abbreviated, or result in slightly different terminology. Coded By: Dante Villarreal' Date Saved: 07/29/2020 04:26 pm [facility] Coding Summary CODING DATE: 020 [facility] STATUS: Home PAYOR: Medicaid HMO ADMIT DX: REASON FOR VISIT DX: R45.851 Suicidal ideations FINAL DX: PRINCIPAL: F32.9 Major depressive disorder, single episode, unspecified SECONDARY: R45.851 Suicidal ideations E11.9 Type 2 diabetes mellitus without complications I10 Essential (primary) hypertension Z79.84 [facility] (current) use of oral hypoglycemic drugs PYMT PROC APC STAT DESCRIPTION DOCTOR NAME DATE NOTE: The code number assigned matches the documented diagnosis and / or procedure in the patient's chart. However, the narrative phrase printed from the coding software may appear abbreviated, or result in slightly different terminology. Coded By: Tammy Villarreal Date Saved: 07/29/2020 04:24 pm [facility] .Auto Diff 1on 07-26-2020 Auto [place] % 7 % Normal -12 [facility] Comment on above: Performed By: #### 7 [id number], 0362624, 0975643, [id number], [id number], [id number], [id number], [id number] #### [facility] (DEFAULT) [address] [place] [address] Baso Abs# 0.0 x10 Normal 0.0-0.2 [facility] Comment on above: Performed By: #### 7 258851, 0715775, 6251183, 22403737, [id number], [id number], [id number], [id number] #### [facility] (DEFAULT) [address] [place] [address] Basophils/100 WBC (Bld) 0.3 % Normal 0.2-2.0 [facility] Comment on above: Performed By: #### 7 047254, 5994303, 4297853, 76773284, [id number], [id number], [id number], [id number] #### [facility] (DEFAULT) [address] [place] [address] Eos Abs# 0.1 x10 Normal 0.0-0.4 [facility] Comment on above: Performed By: #### 7 608429, 0096095, 9407965, 97477497, [id number], [id number], [id number], [id number] #### [facility] (DEFAULT) [address] [place] [address] Eosinophils/100 WBC (Bld) 1.7 % Normal 0.9-4.0 [facility] Comment on above: Performed By: #### 7 195395, 4679812, 1241789, 24214667, [id number], [id number], [id number], [id number] #### [facility] (DEFAULT) [address] [place] [address] Lymphocytes (Bld) [#/Vol] 2.0 x10 Normal 1.3-2.9 [facility] Comment on above: Performed By: #### 7 584753, 2031126, 5921787, 32069327, [id number], 7807395354, 026893799, [id number] #### [facility] (DEFAULT) [address] [place] [address] Lymphocytes/100 WBC (Bld) 26 % Normal 14-48 [facility] Comment on above: Performed By: #### 7 072080, 9095560, 2240892, 54723583, [id number], 9940404823, 963822215, [id number] #### [facility] (DEFAULT) [address] [place] [address] [place] Abs# 0.5 x10 Normal 0.0-0.8 [facility] Comment on above: Performed By: #### 7 803547, 8242444, 7509681, 47375720, 5822505672, 8105890776, 315693371, [id number] #### [facility] (DEFAULT) [address] [place] [address] Neut Abs# 5.1 x10 Normal 1.5-9.2 [facility] Comment on above: Performed By: #### 7 083279, 6672453, 8793716, 88149319, 3164989653, [id number], 020711973, [id number] #### [facility] (DEFAULT) [address] [place] [address] Neutrophils/100 WBC (Bld) 65 % Normal 44-88 [facility] Comment on above: Performed By: #### 7 229885, 5549977, 0446526, 70120091, [id number], 6173765536, 163719292, [id number] #### [facility] (DEFAULT) [address] [place] [address] .QC Respiratory Panel 2.1 (B ioFire)on 07-26-2020 Internal Control-Resp Panel 2.1(BioFire) Pass Normal [facility] Comment on above: Order Comment: Order ed by Discern.[[id number]] Performed By: #### 6 [id number] ####[facility] (DEFAULT)[address] [place] [address] Acet Levelon 07-26-2020 Acetaminoph Lvl 11 mcg/mL Normal 10-30 [facility] Comment on above: Performed By: #### 7 778535, 5914673, 0591073, 25891391, 9190579679, [id number], 820799262, [id number] ####[facility] (DEFAULT)[address] [place] [address] CBC w/ Auto Diffon 0 Erythrocyte distribution width (RBC) [Ratio] 13.4 % Normal 11.5-15.0 [facility] Comment on above: Performed By: #### 7 219507, 8962466, 7689837, 19966274, 0716147338, 9154001367, 152559810, [id number] #### [facility] (DEFAULT) [address] [place] [address] Hematocrit (Bld) [Volume fraction] 38.0 % Normal 33.7-40.4 [facility] Comment on above: Performed By: #### 7 323161, 8942994, 9382166, 63590471, 2592250035, 4121738971, 375744996, [id number] #### [facility] (DEFAULT) [address] [place] [address] Hemoglobin (Bld) [Mass/Vol] 12.2 g/dL Normal 11.3-15.9 [facility] Comment on above: Performed By: #### 7 227651, 6836136, 0267093, 96194094, [id number], 7679316533, 393852552, [id number] #### [facility] (DEFAULT) [address] [place] [address] Man Diff? Auto Normal [facility] Comment on above: Performed By: #### 7 068782, 6756305, 8060953, 75451996, [id number], [id number], [id number], [id number] #### [facility] (DEFAULT) [address] [place] [address] 10420 MCH (RBC) [Entitic mass] 27 pg Normal 24-34 [facility] Comment on above: Performed By: #### 7 367505, 1028569, 0152331, 82705472, [id number], 8706243526, 640746053, [id number] #### [facility] (DEFAULT) [address] [place] [address] 17016 MCHC (RBC) [Mass/Vol] 32 g/dL Normal 26-37 [facility] Comment on above: Performed By: #### 7 251148, 8183548, 5736053, 20992203, 4897489132, 1980473615, 916633665, [id number] #### [facility] (DEFAULT) [address] [place] [address] 44609 MCV (RBC) [Entitic vol] 84 fL Normal 81-100 [facility] Comment on above: Performed By: #### 7 392667, 4875157, 0610916, 77517500, 4964115437, 5579824971, 304897650, 6663810270 #### [facility] (DEFAULT) [address] [place] [address] 13463 Platelet mean volume (Bld) [Entitic vol] 9.7 fL Normal 6.3-10.2 [facility] Comment on above: Performed By: #### 7 229031, 8070878, 3243811, 19052510, 4576515059, 7200706524, 418023947, 1450313337 #### [facility] (DEFAULT) [address] [place] [address] 29133 Platelets (Bld) [#/Vol] 316 x10 Normal 138-427 [facility] Comment on above: Performed By: #### 7 100372, 8335764, 4219358, 96967703, 3886229368, 7574245129, 918728128, 6506719018 #### [facility] (DEFAULT) [address] [place] [address] 45828 RBC (Bld) [#/Vol] 4.51 x10 Normal 3.70-5.30 [facility] Comment on above: Performed By: #### 7 127815, 2230029, 3057354, 22696091, 1080323254, 9621180095, 097377813, 3614257769 #### [facility] (DEFAULT) [address] [place] [address] 24415 WBC (Bld) [#/Vol] 7.8 x10 Normal 3.5-10.5 [facility] Comment on above: Performed By: #### 7 596637, 7902094, 3650519, 27219916, 6834103742, 7801408971, 753286877, 9547134056 #### [facility] (DEFAULT) [address] [place] [address] 25871 CMP Standardon 10-24-2020 eGFR Non AA >60 [facility] Comment on above: Performed By: #### 7 795626, 9436427, 3704196, 87755168, 3186000955, 3715432798, 118996671, 0914032349 ####[facility] (DEFAULT)[address] [place] [address] 93587 eGFR AA >60 [facility] Comment on above: Result Comment: Independent Living Instructor carlo Kidney disease could be indicated at eGFRs of less than 60 ml/min/1.73m2. Kidney Failure is indicated at less than 15 ml/min/1.73m2 Performed By: #### 7 065527, 2341779, 4675287, 05179404, 1580713285, 5937478171, 215074156, 0265554881 ####[facility] (DEFAULT)[address] [place] [address] 24328 Albumin [Mass/Vol] 4.0 g/dL Normal 3.5-5.0 [facility] Comment on above: Performed By: #### 7 444182, 3922438, 4299090, 44614126, 1039138590, 4055191628, 219738418, 4035861683 ####[facility] (DEFAULT)[address] [place] [address] 95436 Albumin/Globulin [Mass ratio] 1.2 {ratio} Low 1.4-2.6 [facility] Comment on above: Performed By: #### 7 900726, 6250594, 6790581, 90093423, 4228187237, 5679021058, 980561538, 5775128138 ####[facility] (DEFAULT)[address] [place] [address] 69753 Alk Phos 69 IU/L Normal 32-91 [facility] Comment on above: Performed By: #### 7 458580, 3177261, 1219002, 14754929, 3987602135, 3783683136, 263780296, 2988397396 ####[facility] (DEFAULT)[address] [place] [address] 53511 ALT/SGPT 21.0 IU/L Normal 14.0-54.0 [facility] Comment on above: Performed By: #### 7 443373, 2609482, 8143814, 88039159, 1782298943, 9143071882, 406940851, 4638689578 ####[facility] (DEFAULT)[address] [place] [address] 31700 Anion gap [Moles/Vol] 13.0 mmol/L Normal 5.0-19.0 [facility] Comment on above: Performed By: #### 7 471702, 5507588, 8531818, 89920944, 8916349173, 9445806411, 321728659, 4672732758 ####[facility] (DEFAULT)[address] [place] [address] AST/SGOT 18 IU/L Normal 15-41 [facility] Comment on above: Performed By: #### 7 268504, 9023566, 7417747, 47857371, 7292861099, 4691211407, 205226286, 8777707571 ####[facility] (DEFAULT)[address] [place] [address] 57615 Bili Total 0.7 mg/dL Normal 0.3-1.2 [facility] Comment on above: Performed By: #### 7 152252, 7397887, 1973688, 76634098, 7069162780, 9965133368, 486689589, 0621753655 ####[facility] (DEFAULT)[address] [place] [address] 11981 Calcium [Mass/Vol] 9.1 mg/dL Normal 8.9-10.3 [facility] Comment on above: Performed By: #### 7 349729, 2207603, 3437944, 52381752, 4841350964, 7582032170, 753523001, 8765134074 ####[facility] (DEFAULT)[address] [place] [address] 49309 Chloride [Moles/Vol] 104 mmol/L Normal 101-111 [facility] Comment on above: Performed By: #### 7 242355, 1819798, 8974287, 12145331, 1227446939, 9998982010, 771416759, 3975062749 ####[facility] (DEFAULT)[address] [place] [address] 57835 CO2 [Moles/Vol] 25 mmol/L Normal 21-32 [facility] Comment on above: Performed By: #### 7 471169, 8403105, 2636133, 40272653, 3806308027, 4311880420, 961304583, 6461442270 ####[facility] (DEFAULT)[address] [place] [address] Creatinine [Mass/Vol] 0.56 mg/dL Low 0.60-1.30 [facility] Comment on above: Performed By: #### 7 599464, 4261803, 8891720, 07361827, 5696862949, 8008217541, 185195549, 1352960330 ####[facility] (DEFAULT)[address] [place] [address] 26928 Globulin (S) [Mass/Vol] 3.4 g/dL Normal 1.5-4.3 [facility] Comment on above: Performed By: #### 7 650563, 9068060, 8440106, 97330519, 8538327099, 9249885404, 920541928, 3547723465 ####[facility] (DEFAULT)[address] [place] [address] 54206 Glucose [Mass/Vol] 97.0 mg/dL Normal 74.0-118.0 [facility] Comment on above: Performed By: #### 7 584336, 9867026, 2586217, 77860668, 6285211712, 4961825629, 411659889, 6005503704 ####[facility] (DEFAULT)[address] [place] [address] 11235 Osmolality [Osmolality] 277 mOsm/L [facility] Comment on above: Performed By: #### 7 498841, 9566093, 8843896, 25751253, 4978029693, 3074288588, 314567396, 2265201933 ####[facility] (DEFAULT)[address] [place] [address] 48799 Potassium [Moles/Vol] 4.0 mmol/L Normal 3.6-5.1 [facility] Comment on above: Performed By: #### 7 454833, 2781079, 4948059, 48375615, 6036492268, 5005146069, 284119891, 5296959124 ####[facility] (DEFAULT)[address] [place] [address] 70014 Protein [Mass/Vol] 7.4 g/dL Normal 6.5-8.1 [facility] Comment on above: Performed By: #### 7 579626, 0158164, 9291531, 21410557, 4470952820, 6654129908, 254705358, 7529830329 ####[facility] (DEFAULT)[address] [place] [address] 81756 Sodium [Moles/Vol] 138.0 mmol/L Normal 136.0-144.0 [facility] Comment on above: Performed By: #### 7 550589, 3144138, 1941681, 93521416, 7213206754, 7271088608, 802921988, 3441545906 ####[facility] (DEFAULT)[address] [place] [address] 57859 Urea nitrogen [Mass/Vol] 16 mg/dL Normal 8-26 [facility] Comment on above: Performed By: #### 7 759655, 5634541, 8280701, 81133334, 6321172330, 3922768376, 807899776, 0144196957 ####[facility] (DEFAULT)[address] [place] [address] 36912 Urea nitrogen/Creatinine [Mass ratio] 29.0 mg/mg High 4.6-16.2 [facility] Comment on above: Performed By: #### 7 120505, 3353997, 2940928, 01203950, 3453847652, 2292602848, 319465324, 4750875091 ####[facility] (DEFAULT)[address] [place] [address] 99848 ED Clinical Summary 2019 ED Clinical Summary [facility] - Emergency Department [address] [place], [place] [id number] ED Clinical Summary PERSON INFORMATION Name: ANGELA HENDRICKSON Age: 34 Years Sex: FEMALE : 1985 MRN: Acct#: Visit Reason: Suicidal ideation; SUICIDAL IDEATION Arrival: 07/26/2020 14:20:47 Discharge: 07/26/2020 16:59:00 LOS: 000 02:39 Check In: 07/26/2020 14:20:47 Checkout:07/26/2020 16:59:00 Address: [address] [place], [place] [address] PCP: Ingrid Culver NP PROVIDER INFORMATION Provider [...] situation. Patient is currently living at the [facility] here in [place] which is a woman's senior care type living. Patient states she has been living there for about 1 year. Patient states that she grew up in [place]. States she had 1 prior suicide attempt at the age of 9 or 10 years old. She states she did not feel she was wanted and friends states that she did not have a good home life and did not have the [place] nurturing that she deserved. Patient states that aside from her childhood living at the [facility], has been difficult. She states [...] states that her is also currently in jail and has 3 or 4 more years [...] a 15 yo daughter who lives in [place] with her grandmother. Patient states child was [...] 14:57:00, rate 85, Sinus rhythm Normal ECG IA interval 168, QRS duration 89, QT/QTc 337/379. [...] % Auto Lymph % 26 % Auto Marshall % 7 % Auto Eos % 1.7 % Auto Baso % 0.3 % Neut Abs# 5.1 x103/mcL Lymph Abs# 2.0 x103/mcL Marshall Abs# 0.5 x103/mcL Eos Abs# 0.1 x103/mcL Baso Abs# 0.0 x103/mcL Salicylate Lvl <4.0 mg/dL Acetaminoph Lvl 11 mcg/mL Tube Collected Yes Tube Collected Yes 07/26/2020 14:50 EDT Ethanol Level <5.0 mg/dL . Reexamination/ Reevaluation 15:03 I spoke with [facility] counseling hotline in regards to the pt. [...] 16:36 I spoke with Sarah counselor from [facility]. She spoke with her friend Melisa whom is willing to safety plan with the pt at [facility], Pt and Melisa are comfortable with this plan. [facility] also spoke with keren Lino counselor from she says she plans to [...] agrees and understands this plan of care. [facility] counselor Sarah and myself are agreeable to safety plan with patient's friend Melisa patient will be discharged home. Impression and Plan Diagnosis Depression (RYA78-BM F32.9, Discharge, Medical) Suicidal ideations (EJY79-CX R45.851, Discharge, Medical) Plan Condition: Stable. Disposition: [...] next week. You spoke with Sarah from [facility] behavioral health and counseling, at this time, [...] Follow-Up: With: Address: When: Ingrid Culver [address] [facility], [address] [place] [address] Business (1) Within 3 to 5 days Comments: Please follow-up with your counselor in 3 to 5 days. Your counselor Zoie should be contacting you tomorrow as well as a Tuesday to check in on you and speak with you. Please keep your follow-up appointment with her for Tuesday of next week. You spoke with Sarah from [facility] behavioral health and counseling, at this time, [...] r verbalizes understanding of instructions given Comment: [facility] ED Note - Otheron 07-26-2020 ED Note - Henrique Called [facility] @ 8587 a dmitry laguna called back @ 4870, and spoke with MAYCOL Dudley, and also spoke with pt. [Electronically Signed on: 07/26/2020 16:37 EDT] Sola Sierra [Verified on: 07/26/2020 16:37 EDT] Sola Sierra [facility] ED Note - Physicianon 2019 ED Note [...] situation. Patient is currently living at the [facility] here in [place] which is a woman's senior care type living. Patient states she has been living there for about 1 year. Patient states that she grew up in [place]. States she had 1 prior suicide attempt at the age of 9 or 10 years old. She states she did not feel she was wanted and friends states that she did not have a good home life and did not have the [place] nurturing that she deserved. Patient states that aside from her childhood living at the [facility], has been difficult. She states [...] states that her is also currently in jail and has 3 or 4 more years [...] a 15 yo daughter who lives in [place] with her grandmother. Patient states child was [...] 14:57:00, rate 85, Sinus rhythm Normal ECG IA interval 168, QRS duration 89, QT/QTc 337/379. [...] % Auto Lymph % 26 % Auto Marshall % 7 % Auto Eos % 1.7 % Auto Baso % 0.3 % Neut Abs# 5.1 x103/mcL Lymph Abs# 2.0 x103/mcL Marshall Abs# 0.5 x103/mcL Eos Abs# 0.1 x103/mcL Baso Abs# 0.0 x103/mcL Salicylate Lvl <4.0 mg/dL Acetaminoph Lvl 11 mcg/mL Tube Collected Yes Tube Collected Yes 07/26/2020 14:50 EDT Ethanol Level <5.0 mg/dL . Reexamination/ Reevaluation 15:03 I spoke with [facility] counseling hotline in regards to the pt. [...] 16:36 I spoke with Sarah counselor from [facility]. She spoke with her friend Melisa whom is willing to safety plan with the pt at [facility], Pt and Melisa are comfortable with this plan. [facility] also spoke with Zoie, pts counselor from [...] agrees and understands this plan of care. [facility] counselor Sarah and myself are agreeable to safety plan with patient's friend Melisa patient will be discharged home. Impression and Plan Diagnosis Depression (ESQ83-PO F32.9, Discharge, Medical) Suicidal ideations (REQ61-TF R45.851, Discharge, Medical) Plan Condition: Stable. Disposition: [...] next week. You spoke with Sarah from [facility] behavioral health and counseling, at this time, [...] 07/26/2020 16:46 EDT] Luis Enrique Clark PA-C [facility] ED Note-Nursingon 07-26-2020 ED Note-Nursing Pt arrives to ED and per caregiver states she wants to harm herself. Pt states she wishes she was not here and that she were . Pt states she has more stress right now but does not have any additional stressors than normal. 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 PT IS ALERT AND ORIENTED WHILE BEING VERY UNKEMPT. PT AMBULATED TO ED ROOM 4 W/O DIFFICULTY OF INCIDENT. [facility] ED Patient Education Noteon 07-26-2020 ED Patient [...] urine clear or pale yellow. ? Take gsrb-jxf-cgynnys and prescription medicines only as told by [...] 03/15/2002 Document Revised: 09/01/2018 Document Reviewed: 11/09/2017 [employer] Patient Education ? 2020 [employer]. Suicidal Feelings: How to Help Yourself Suicide [...] services (911 in the [place] ? The [facility] and human services helpline (211 in the [place] ? Go to your nearest emergency department. ? Call a suicide hotline to speak with a trained counselor. The following suicide hotlines are available in the [place]: ? 1-894-795-TALK ( ). ? 4-364-KUYVMZK ( ). ? . This is a hotline for Central African speakers. ? . This is a hotline for TTY users. ? 8-212-9-U-FRED ( ). This is a hotline for [...] even if you do not feel sociable. Vmwm-qd-lynk conversation is best to help them understand [...] can help you feel better. ? Take uhvc-nfl-nzmztjv and prescription medicines only as told by [...] Lifeline: www.suicidepreventionli feline.org ? Hopeline: www.hopeline.com ? [place] [employer] for Suicide Prevention: www.afsp.org ? The [...] 03/25/2004 Document Revised: 01/10/2020 Document Reviewed: 05/02/2018 [employer] Patient Education ? 2019 Webtab. Normal [facility] ED Patient Summaryon 020 ED Patient Summary [facility] - Emergency Department [address] [place] [address] PATIENT DISCHARGE INSTRUCTIONS Patient Information Name: ANGELA HENDRICKSON Age: 34 Years Date of : 1985 Reason For Visit: Suicidal ideation; SUICIDAL IDEATION Arrival Time: 07/26/2020 14:20:47 Primary Care Physician: Ingrid Culver NP Attending Physician: John Krishnamurthy MD Comment: Visit Diagnosis: Diagnoses This Visit Depression (F32.9) Suicidal ideation ([id number]) Suicidal ideations (R45.851) Prescription Information: If you have been given a prescription for narcotics, seek immediate medical attention if you have any difficulty breathing or any sudden status changes such as confusion and sleepiness. If you or anyone you know is experiencing suicidal thoughts, mental health, alcohol and/or drug addiction problems; contact the [facility] 25/04 Crisis Hotline -Text 4HQPR zc 629828. If you received any narcotics, sedation, or [...] any legal documents With: Address: When: Ingrid Cluver [address] [facility], [address] [place], [place] [address] Business (1) Within 3 to 5 days Comments: Please follow-up with your counselor in 3 to 5 days. Your counselor Zoie should be contacting you tomorrow as well as a Tuesday to check in on you and speak with you. Please keep your follow-up appointment with her for Tuesday of next week. You spoke with Sarah from [facility] behavioral health and counseling, at this time, [...] and treatment you received today in the [facility] Emergency Department were for an urgent problem and are not intended as complete care. It is important for you to follow up with a doctor, nurse practitioner, or physician?s tiler's assistant for ongoing care. If your symptoms become [...] so we can reach you if necessary. [facility] Emergency Department has provided you with a complete list of medications post discharge. Please inform your automotive engineering technician/provider of your visit and for further instruction [...] urine clear or pale yellow. ? Take wodl-cfh-mvpwqrh and prescription medicines only as told by [...] 03/15/2002 Document Revised: 09/01/2018 Document Reviewed: 11/09/2017 [employer] Patient Education ? 2019 [employer]. Suicidal Feelings: How to Help Yourself [...] help: ? Call your local emergency services (701 in the [place] ? The [facility] and human services helpline (211 in the [place] ? Go to your nearest emergency department. ? Call a suicide hotline to speak with a trained counselor. The following suicide hotlines are available in the [place]: ? 7-003-667-TALK ( ). ? 2-399-BVKYWCM ( ). ? . This is a hotline for Central [place] speakers. ? . This is a hotline for TTY users. ? 8-898-2-U-FRED ( ). This is a hotline for [...] even if you do not feel sociable. Nqhn-dx-ybwj conversation is best to help them understand [...] can help you feel better. ? Take rtdr-sap-xpznuvk and prescription medicines only as told by [...] Lifeline: www.suicidepreventionli feline.org ? Hopeline: www.hopeline.com ? [place] Foundation for Suicide Prevention: www.afsp.org ? The Fred Project (for lesbian, clayton, bisexual, transgender, or questioning youth): www.theS*Biovorproject.or g Contact a health care provider if: [...] 03/25/2004 Document Revised: 01/10/2020 Document Reviewed: 05/02/2018 [employer] Patient Education ? 2019 [employer]. Viruses or Bacteria What?s got you [...] Disease Control and Prevention June 2014 Normal [facility] Ethanol.on 07-26-2020 Ethanol Level <5.0 Normal 0.0-5.0 [facility] Comment on above: Performed By: #### 2 [id number] ####[facility] (DEFAULT)[address] [place] [address] Extra Redon 07-26-2020 Tube Collected Yes [facility] Comment on above: Performed By: #### 7 165426, 5655127, 5451739, 30561168, [id number], 5113441442, 579529720, [id number] #### [facility] (DEFAULT) [address] [place] [address] Pharmacy Noteon 07-26-2020 Pharmacy Note I have [...] [Verified on: 07/26/2020 16:05 EDT] Brianna Hamilton Normal [facility] Respiratory Panel 2.1 (BioFi re)on 07-26-2020 Adenovirus -BioFire Not Detected Normal Not Detected [facility] Comment on above: Order Comment: Pt keesha bran at [facility], a women's home, required for psych admission Performed By: #### 6 [id number], [id number] ####[facility] (DEFAULT)[address] [place] [address] 98561 Bordetella parapertussis -BioFire Not Detected Normal Not Detected [facility] Comment on above: Order Comment: Pt li ves at [facility], a women's home, required for psych admission Performed By: #### 6 [id number], [id number] ####[facility] (DEFAULT)[address] [place] [address] 89825 Bordetella pertussis -BioFire Not Detected Normal Not Detected [facility] Comment on above: Order Comment: Pt li ves at [facility], a women's home, required for psych admission Performed By: #### 6 [id number], [id number] ####[facility] (DEFAULT)[address] [place] [address] 73433 Chlamydia pneumoniae -BioFire Not Detected Normal Not Detected [facility] Comment on above: Order Comment: Pt li ves at [facility], a women's home, required for psych admission Performed By: #### 6 [id number], [id number] ####[facility] (DEFAULT)[address] [place] [address] 71233 Coronavirus 229E (Not COVID-19) -BioFire Not Detected Normal Not Detected [facility] Comment on above: Order Comment: Pt li ves at [facility], a women's home, required for psych admission Performed By: #### 6 [id number], [id number] ####[facility] (DEFAULT)[address] [place] [address] 01296 Coronavirus HKU1 (Not COVID-19) -BioFire Not Detected Normal Not Detected [facility] Comment on above: Order Comment: Pt li ves at [facility], a women's home, required for psych admission Performed By: #### 6 [id number], [id number] ####[facility] (DEFAULT)[address] [place] [address] 09656 Coronavirus NL63 (Not COVID-19) -BioFire Not Detected Normal Not Detected [facility] Comment on above: Order Comment: Pt li ves at [facility], a women's home, required for psych admission Performed By: #### 6 [id number], [id number] ####[facility] (DEFAULT)[address] [place] [address] 78551 Coronavirus OC43 (Not COVID-19) -BioFire Not Detected Normal Not Detected [facility] Comment on above: Order Comment: Pt li ves at [facility], a women's home, required for psych admission Performed By: #### 6 [id number], [id number] ####[facility] (DEFAULT)[address] [place] [address] Employed in healthcare? No [facility] Comment on above: Order Comment: Pt li ves at [facility], a women's home, required for psych admission Performed By: #### 6 [id number], [id number] ####[facility] (DEFAULT)[address] [place] [address] Group care resident? Yes [facility] Comment on above: Order Comment: Pt li ves at [facility], a women[facility] home, required for psych admission Performed By: #### 6 [id number], [id number] ####[facility] (DEFAULT)[address] [place] [address] Hospitalized due to COVID-19? No [facility] Comment on above: Order Comment: Pt li ves at [facility], a women's home, required for psych admission Performed By: #### 6 [id number], [id number] ####[facility] (DEFAULT)[address] [place] [address] Human Metapneumovirus -BioFire Not Detected Normal Not Detected [facility] Comment on above: Order Comment: Pt li ves at [facility] a [facility] home, required for psych admission Performed By: #### 6 [id number], [id number] ####[facility] (DEFAULT)[address] [place] [address] Human Rhinovirus/Enterovir us -BioFire Not Detected Normal Not Detected [facility] Comment on above: Order Comment: Pt li ves at [facility] a [facility], required for psych admission Performed By: #### 6 [id number], [id number] ####[facility] (DEFAULT)[address] [place] [address] 91389 In ICU? No [facility] Comment on above: Order Comment: Pt li ves at [facility] a [facility], required for psych admission Performed By: #### 6 [id number], [id number] ####[facility] (DEFAULT)[address] [place] [address] 35253 Influenza A (no subtype) -BioFire Not Detected Normal Not Detected [facility] Comment on above: Order Comment: Pt li ves at [facility] a [facility], required for psych admission Performed By: #### 6 [id number], [id number] ####[facility] (DEFAULT)[address] [place] [address] Influenza A -BioFire Not Detected Normal Not Detected [facility] Comment on above: Order Comment: Pt li ves at [facility] a [facility], required for psych admission Performed By: #### 6 [id number], [id number] ####[facility] (DEFAULT)[address] [place] [address] 86652 Influenza A H1 -BioFire Not Detected Normal Not Detected [facility] Comment on above: Order Comment: Pt li ves at [facility] a [facility], required for psych admission Performed By: #### 6 [id number], [id number] ####[facility] (DEFAULT)[address] [place] [address] 65773 Influenza A H1-2009 -BioFire Not Detected Normal Not Detected [facility] Comment on above: Order Comment: Pt li ves at [facility] a [facility], required for psych admission Performed By: #### 6 [id number], [id number] ####[facility] (DEFAULT)[address] [place] [address] 14842 Influenza A H3 -BioFire Not Detected Normal Not Detected [facility] Comment on above: Order Comment: Pt li ves at [facility] a [facility], required for psych admission Performed By: #### 6 [id number], [id number] ####[facility] (DEFAULT)[address] [place] [address] 68575 Influenza B -BioFire Not Detected Normal Not Detected [facility] Comment on above: Order Comment: Pt li ves at [facility], required for psych admission Performed By: #### 6 [id number], [id number] ####[facility] (DEFAULT)[address] [place] [address] 17740 Mycoplasma pneumoniae -BioFire Not Detected Normal Not Detected [facility] Comment on above: Order Comment: Pt li ves at [facility] a [facility], required for psych admission Performed By: #### 6 [id number], [id number] ####[facility] (DEFAULT)[address] [place] [address] 32971 Parainfluenza Virus 1 -BioFire Not Detected Normal Not Detected [facility] Comment on above: Order Comment: Pt li ves at [facility] a [facility], required for psych admission Performed By: #### 6 [id number], [id number] ####[facility] (DEFAULT)[address] [place] [address] 10838 Parainfluenza Virus 2 -BioFire Not Detected Normal Not Detected [facility] Comment on above: Order Comment: Pt li ves at [facility] a [facility], required for psych admission Performed By: #### 6 [id number], [id number] ####[facility] (DEFAULT)[address] [place] [address] 60667 Parainfluenza Virus 3 -BioFire Not Detected Normal Not Detected [facility] Comment on above: Order Comment: Pt li ves at [facility] a [facility], required for psych admission Performed By: #### 6 [id number], [id number] ####[facility] (DEFAULT)[address] [place] [address] 86392 Parainfluenza Virus 4 -BioFire Not Detected Normal Not Detected [facility] Comment on above: Order Comment: Pt li ves at [facility] a [facility], required for psych admission Performed By: #### 6 [id number], [id number] ####[facility] (DEFAULT)[address] [place] [address] 99577 status? Not [facility] Comment on above: Order Comment: Pt li ves at [facility] a [facility], required for psych admission Performed By: #### 6 [id number], [id number] ####[facility] (DEFAULT)[address] [place] [address] 22278 Respiratory Syncytial Virus -BioFire Not Detected Normal Not Detected [facility] Comment on above: Order Comment: Pt li ves at [facility], required for psych admission Performed By: #### 6 [id number], [id number] ####[facility] (DEFAULT)[address] [place] [address] 53105 SARS-CoV-2 (COVID-19) -BioFire Not Detected Normal Not Detected [facility] Comment on above: Order Comment: Pt li ves at [facility], required for psych admission Performed By: #### 6 [id number], [id number] ####[facility] (DEFAULT)[address] [place] [address] 15404 Symptomatic as defined by CDC? No [facility] Comment on above: Order Comment: Pt li ves at [facility] a [facility], required for psych admission Performed By: #### 6 [id number], [id number] ####[facility] (DEFAULT)[address] [place] [address] 71907 Salicylateon 07-26-2020 Salicylate Lvl <4.0 Normal 0.0-30.0 [facility] Comment on above: Result Comment: Sali cylate ranges less than 30 mg/dL are considered to be therapeutic. Levels greater than 30 mg/dL are considered toxic and levels greater than 60 mg/dL may be lethal. Performed By: #### 7 [id number], [id number], [id number], [id number], [id number], [id number], [id number], [id number] ####[facility] (DEFAULT)[address] [place] [address] 83588 Thyroid Panel 4on 07-26-2020 T3 Uptake. 48 % Normal 32-48 [facility] Comment on above: Performed By: #### 7 [id number], [id number], [id number], [id number], [id number], [id number], [id number], [id number] ####[facility] (DEFAULT)[address] [place] [address] T4 [Mass/Vol] 9.41 ug/dL Normal 6.09-12.23 [facility] Comment on above: Performed By: #### 7 [id number], [id number], [id number], [id number], [id number], [id number], [id number], [id number] ####[facility] (DEFAULT)[address] [place] [address] T7 4.52 Normal 1.94-5.91 [facility] Comment on above: Performed By: #### 7 [id number], [id number], 0495222, [id number], [id number], [id number], [id number], [id number] ####[facility] (DEFAULT)[address] [place] [address] 31815 TSH Qn 1.49 mcIU/mL Normal 0.45-5.33 [facility] Comment on above: Result Comment: Gene ral Population (males and non- females, aged 21-88) 0.45 - 5.33 Females, 1st Trimester 0.05 - 3.70 Females, 2nd Trimester 0.31 - 4.35 Females, 3rd Trimester 0.41 - 5.18 Performed By: #### 7 [id number], 4111006, 9891155, [id number], [id number], [id number], [id number], [id number] ####[facility] (DEFAULT)[address] [place] [address] 00233 Coding Summary.on 07-07-2020 Coding Summary. CODING DATE: 020 FINAL [facility] STATUS: Home (Routine DC) PAYOR: Medicaid EAPG DESCRIPTION 0293 MRI- JOINTS 0490 INCIDENTAL TO MEDICAL, SIGNIFICANT PROCEDURE OR THERAPY VISIT ADMIT DX: REASON FOR VISIT DX: S69.81XA Other specified injuries of right wrist, hand and finger(s), initial encounter FINAL DX: PRINCIPAL: S69.81XA Other specified injuries of right wrist, hand and finger(s), initial encounter SECONDARY: W19.XXXD Unspecified fall, subsequent encounter PYMT PROC EA STAT DESCRIPTION DOCTOR NAME DATE NOTE: The code number assigned matches the documented diagnosis and / or procedure in the patient's chart. However, the narrative phrase printed from the coding software may appear abbreviated, or result in slightly different terminology. Coded By: Savanna Radford CphT Date Saved: 07/07/2020 02:[address] [facility] Consent for Treatmenton Consent for Treatment [id number]#1.00C D:[address] [facility] MRI Wrist Arthrogram Righton 07-04-2020 MRI [...] REPORT Dictated: 07/04/2020 12:58 pm Justino Chandler MD Signed (Electronic Signature): 07/04/2020 12:58 pm Signed by: Justino Chandler MD Transcribed by: CHASITY Technologist: JAY Technical Comments MultiHance Contrast amount in ml's: [address] [facility] RAD - Consent to Procedureon 07-04-2020 RAD - Consent to Procedure [id number]#1.00 CD:[address] [facility] RAD - MRI Screening Formon 1 RAD - MRI Screening Form [id number]#1.00C D:[address] [facility] XR Inj Wrist Arthrogram Righ ton [...] Radiation Dose: Ka,r in mGy = 0.[address] [facility] Medication Managementon 06-04 Medication Management [id number]#1.00O [facility] Physical Therapy Noteon 06-04 Physical Therapy Note [id number]#1.00O [facility] Physician Orderon 06-20-2020 Physician Order [id number]#1.00 CD:127 [facility] Coding Summaryon 05-01-2020 Coding Summary CODING DATE: 020 [facility] STATUS: PAYOR: Medicaid HMO ADMIT DX: REASON [...] Alpa Norman Date Saved: 05/01/2020 11:46 am [facility] Provider Orderson 05-01-2020 Provider Orders [id number]#1.00O [facility] Coding Summaryon 04-16-2020 Coding Summary CODING DATE: [facility] STATUS: Home PAYOR: Medicaid HMO ADMIT DX: [...] Alpa Norman Date Saved: 04/16/2020 02:37 pm [facility] Lab - Immunology/Serology Re sultson 03-31-2020 Lab - Immunology/Serology Results [id number]#1.00OT [facility] POCT urine pregnancyon 03-31 Beta HCG ( test) Ql (U) Negative NEGATIVE [facility] [place] Comment on above: Specimens with hCG l [...] testing to the number on the order. [facility] Provider Orderson 03-28-2020 Provider Orders [id number]#1.00O TGTIFF [facility] SARS-CoV-2 (COVID-19) PCRon 03-28-2020 COVID-19 PCR Not Detected Normal Not Detected [facility] Comment on above: Order Comment: Sent to [facility] Performed By: #### 6 [id number] ####[facility] (DEFAULT)[address] [place] [address] Coding Summaryon 02-20-2020 Coding Summary CODING DATE: 020 [facility] STATUS: Home PAYOR: Medicaid HMO ADMIT DX: [...] Alpa Norman Date Saved: 02/20/2020 11:22 am [facility] Consent Formson 02-19-2020 Consent Forms [id number]#1.00O [facility] Medication Managementon 01-31 Medication Management [id number]#1.00O [facility] ED Clinical Summaryon 2019 ED Clinical Summary [facility] ? Urgent Care [address] [place] [address] Clinical Summary PERSON INFORMATION Name: ANGELA HENDRICKSON Age: 34 Years Sex: FEMALE : 1985 MRN: Acct#: Visit Reason: Back pain; Foot pain-swelling; FALL, RIGHT WRIST PAIN, RIGHT FOOT PAIN, BACK PAIN Arrival: 02/18/2020 12:47:00 Discharge: 02/18/2020 14:46:00 LOS: 000 01:59 Check In: 02/18/2020 12:47:00 Checkout: 02/18/2020 14:46:00 Address: [address] [place] [address] PCP: Provider, None PROVIDER INFORMATION Provider Role Assigned Unassigned Suze Santiago RN ED Nurse 02/18/2020 12:55:51 Charlie Romero PA-C ED PA 02/18/2020 12:57:26 VITALS INFORMATION Vital Sign Triage Latest Temperature Tympanic Temperature Temporal Artery Pulse Rate O2 Sat Respiratory Rate Blood Pressure /88 mmHg /88 mmHg MEDICAL INFORMATION Medications Given: Allergy Information: Claritin; methylPREDNISolone PHYSICIAN DOCUMENTATION DISCHARGE INFORMATION: Discharge Disposition: Home Discharge Location: Home PATIENT EDUCATION INFORMATION Instructions: Wrist Fracture Treated With Immobilization; Thoracic Strain, Zlef-rn-Sofy; Wrist Sprain, Adult; Foot Sprain Follow-Up: With: Address: When: Rafita Watson [address] [place] [address] [facility] (1) Within 1 to 2 days With: Address: When: Follow up with primary care provider Within 2 to 4 days DIAGNOSIS: Right foot sprain; Sprain of right wrist; Strain of thoracic spine Patient Understands: Yes - Patient/family/caregive r verbalizes understanding of instructions given Comment: [facility] ED Patient Summaryon 020 ED Patient Summary [facility] ? Urgent Care [address] [place] [address] PATIENT DISCHARGE INSTRUCTIONS Patient Information Name: ANGELA HENDRICKSON Age: 34 Years Date of : 1985 Reason For Visit: Back pain; Foot pain-swelling; FALL, RIGHT WRIST PAIN, RIGHT FOOT PAIN, BACK PAIN Arrival Time: 02/18/2020 12:47:00 Primary Care Physician: Provider, Girish Attending Physician: Esteban Barry Comment: Patient Education With: Address: When: Rafita Watson [address] [place] [address] [employer] (1) Within 1 to 2 days With: [...] is stable enough for you to begin plzpj-te-bfpwhp exercises. You may also be prescribed pain [...] your health care provider approves. ? Do rtvxw-kr-hrgelh exercises only as told by your health care provider or physical therapist. General instructions ? Do not put pressure on any part of the cast or splint until it is fully hardened. This may take several hours. ? Take aebt-seb-truihzl and prescription medicines only as told by [...] keep your urine pale yellow. ? Take esaa-xcz-trxuntz or prescription medicines. ? Eat foods that [...] 06/29/2006 Document Revised: 02/20/2019 Document Reviewed: 02/20/2019 [employer] Patient Education ? 2019 [employer]. Thoracic Strain Thoracic strain is an injury [...] minutes, 2?3 times per day. ? Take azud-aak-tujthjr and prescription medicines only as told by [...] 03/07/2009 Document Revised: 05/21/2017 Document Reviewed: 11/13/2015 [employer] Patient Education ? 2019 [employer]. Wrist Sprain, Adult A wrist sprain is [...] health care provider. General instructions ? Take ecvt-smi-msilifu and prescription medicines only as told by [...] 05/23/2015 Document Revised: 04/16/2017 Document Reviewed: 04/07/2017 [employer] Patient Education ? 2019 [employer] Foot Sprain A foot sprain is [...] This may take several hours. ? Take hzac-myv-qxhczzz and prescription medicines only as told by [...] 03/11/2003 Document Revised: 09/23/2018 Document Reviewed: 09/23/2018 [employer] Patient Education ? 2019 [employer] Medication Information: The exam and treatment you received today in the [facility] Emergency Department were for an urgent problem and are not intended as complete care. It is important for you to follow up with a doctor, nurse practitioner, or physician?s tiler's assistant for ongoing care. If your symptoms become [...] so we can reach you if necessary. [facility] Emergency Department has provided you with a complete list of medications post discharge. Please inform your automotive engineering technician/provider of your visit and for further instruction on these medications. Any specific questions regarding your chronic medications and dosages should be discussed with your primary care physician(s) and/or pharmacist. New Medications [facility], [address] [place], [place] [id number], [phone] ibuprofen (ibuprofen 600 mg oral tablet) 1 [...] Visit Diagnosis: Diagnoses This Visit Back pain ([id number]) Foot pain-swelling ([id number]) Right foot sprain (S93.601A) Sprain of right [...] for Disease Control and Prevention June 2014 [facility] Patient Handouton 02-18-2020 Patient Handout Patient Education [...] is stable enough for you to begin rpwcd-nl-poqcpi exercises. You may also be prescribed pain [...] your health care provider approves. ? Do ifdxc-sb-pipobw exercises only as told by your health care provider or physical therapist. General instructions ? Do not put pressure on any part of the cast or splint until it is fully hardened. This may take several hours. ? Take hycd-vcw-xxmathj and prescription medicines only as told by [...] keep your urine pale yellow. ? Take ncrw-mee-lemxavz or prescription medicines. ? Eat foods that [...] 06/29/2006 Document Revised: 02/20/2019 Document Reviewed: 02/20/2019 [employer] Patient Education ? 2019 [employer]. Thoracic Strain Thoracic strain is an injury [...] minutes, 2?3 times per day. ? Take mtjs-jer-dwszoxc and prescription medicines only as told by [...] 03/07/2009 Document Revised: 05/21/2017 Document Reviewed: 11/13/2015 [employer] Patient Education ? 2019 [employer]. Wrist Sprain, Adult A wrist sprain is [...] health care provider. General instructions ? Take aqyr-pdo-plyusse and prescription medicines only as told by [...] 05/23/2015 Document Revised: 04/16/2017 Document Reviewed: 04/07/2017 [employer] Patient Education ? 2019 [employer] Foot Sprain A foot sprain is [...] This may take several hours. ? Take yflu-fco-ymshvhx and prescription medicines only as told by [...] 03/11/2003 Document Revised: 09/23/2018 Document Reviewed: 09/23/2018 [employer] Patient Education ? 2018 [employer]. [facility] Urgent Care Note- Provideron 02-18-2020 Urgent Care Note- Provider Patient: ANGEAL HENDRICKSON Age: 34 years Sex: FEMALE : [...] Impression and Plan Diagnosis Right foot sprain (RFG52-ZH S93.601A, Discharge, Medical) Sprain of right wrist (LDX79-EI S63.501A, Discharge, Medical) Strain of thoracic spine (FMT59-RE S29.012A, Discharge, Medical) Possible left navicular fracture Plan Condition: Stable. Disposition: Discharged: Time 02/18/2020 14:20:00, to home. Prescriptions: [facility] Pharmacy: ibuprofen 600 mg oral tablet (Prescribe): 600 mg = 1 tab(s), PO, q8hr, for 10 day(s), PRN: as needed for pain, 30 tab(s), 0 Refill(s). Patient was given the following educational materials: Foot Sprain, Wrist Sprain, Adult, Thoracic Strain, Gwzs-uv-Ggqp, Wrist Fracture Treated With Immobilization, Wrist Fracture Treated With Immobilization, Thoracic Strain, Qwrt-db-Ffbh, Wrist Sprain, Adult, Foot Sprain. Follow up with: ; Follow up with primary care provider Within 2 to 4 days; Rafita Watson Within 1 to 2 days. Counseled: Patient, Regarding diagnosis, Regarding diagnostic results, Regarding treatment plan, Regarding prescription, Patient indicated understanding of instructions. Normal [facility] Recordon 020 Urgent Care Record [facility] ? Urgent Care [address] [place] [address] PATIENT DISCHARGE INSTRUCTIONS Patient Information Name: ANGELA HENDRICKSON Age: 34 Years Date of : 1985 Reason For Visit: Back pain; Foot pain-swelling; FALL, RIGHT WRIST PAIN, RIGHT FOOT PAIN, BACK PAIN Arrival Time: 02/18/2020 12:47:00 Primary Care Physician: Provider, None Attending Physician: Esteban Barry Comment: Visit Diagnosis: Diagnoses This Visit Back pain ([id number]) Foot pain-swelling ([id number]) Right foot sprain (S93.601A) Sprain of right [...] legal documents With: Address: When: Rafita Watson [address] [place] [address] Business (1) Within 1 to 2 days With: Address: When: Follow up with primary care provider Within 2 to 4 days Medication Information: The exam and treatment you received today in the [facility] were for an urgent problem and are not intended as complete care. It is important for you to follow up with a doctor, nurse practitioner, or physician?s tiler's assistant for ongoing care. If your symptoms become [...] so we can reach you if necessary. [facility] has provided you with a complete list of medications post discharge. Please inform your automotive engineering technician/provider of your visit and for further instruction on these medications. Any specific questions regarding your chronic medications and dosages should be discussed with your primary care physician(s) and/or pharmacist. New Medications [facility], [address] [place], [place] [id number], [phone] ibuprofen (ibuprofen 600 mg oral tablet) 1 [...] is stable enough for you to begin psboy-gq-znndcn exercises. You may also be prescribed pain [...] your health care provider approves. ? Do lxcce-bj-ucecte exercises only as told by your health care provider or physical therapist. General instructions ? Do not put pressure on any part of the cast or splint until it is fully hardened. This may take several hours. ? Take pucu-ncc-gkzepro and prescription medicines only as told by [...] keep your urine pale yellow. ? Take pwhn-pzi-pnaivmx or prescription medicines. ? Eat foods that [...] 06/29/2006 Document Revised: 02/20/2019 Document Reviewed: 02/20/2019 [employer] Patient Education ? 2019 [employer] Thoracic Strain Thoracic strain is an injury [...] minutes, 2?3 times per day. ? Take ixvm-rdu-uekdsli and prescription medicines only as told by [...] 03/07/2009 Document Revised: 05/21/2017 Document Reviewed: 11/13/2015 [employer] Patient Education ? 2019 [employer] Wrist Sprain, Adult A wrist sprain is [...] health care provider. General instructions ? Take rsdg-spy-eejedap and prescription medicines only as told by [...] 05/23/2015 Document Revised: 04/16/2017 Document Reviewed: 04/07/2017 [employer] Patient Education ? 2019 [employer]. Foot Sprain A foot sprain is an [...] This may take several hours. ? Take nszr-bjk-htfrduh and prescription medicines only as told by [...] 03/11/2003 Document Revised: 09/23/2018 Document Reviewed: 09/23/2018 [employer] Patient Education ? 2019 [employer]. Viruses or Bacteria What?s got you sick? [...] for Disease Control and Prevention June 2014 [facility] XR Foot Complete Righton XR Foot Complete [...] MD 02/18/20 2:16 pm Technologist: Gabriel EVERETT [facility] XR Spine Thoracic 3 Viewson 02-18-2020 XR [...] MD 02/18/20 2:16 pm Technologist: Gabriel EVERETT [facility] XR Wrist Complete Righton XR Wrist Complete [...] MD 02/18/20 2:16 pm Technologist: Gabriel EVERETT [facility] Coding Summaryon 10-05-2019 Coding Summary CODING DATE: 020 [facility] STATUS: Home PAYOR: Medicaid HMO ADMIT DX: [...] Coded By: Tammy Villarreal Date Saved: 10/05/2019 01:09 pm [facility] Coding Summary CODING DATE: [facility] STATUS: Home PAYOR: Medicaid HMO ADMIT DX: [...] Tammy Villarreal Date Saved: 10/05/2019 01:08 pm [facility] ED Clinical Summaryon 2018 ED Clinical Summary [facility] - Emergency Department [address] [place] [id number] ED Clinical Summary PERSON INFORMATION Name: ANGELA HENDRICKSON Age: 33 Years Sex: FEMALE : 1985 MRN: Acct#: Visit Reason: Wheezing; Cough; DIFFICULTY BREATHING Arrival: 10/02/2019 20:04:01 Discharge: 10/02/2019 21:52:00 LOS: 000 01:48 Check In: 10/02/2019 20:04:01 Checkout:10/02/2019 21:52:00 Address: [address] [place] [address] PCP: Provider, None PROVIDER INFORMATION Provider Role Assigned Unassigned Rasta Freeman ED PA 10/02/2019 20:14:06 10/02/2019 20:19:10 Macho Smith MD [...] room.. Impression and Plan Diagnosis Asthma exacerbation (OFT22-JT J45.901, Discharge, Medical) Plan Condition: Improved, Stable. Disposition: Discharged: to home. Patient was given the following educational materials: Asthma, Adult, Igal-wa-Bofd, Asthma, Adult, Cfih-ls-Uryv. Follow up with: None Provider Within 3 to 5 days. Counseled: Patient, Regarding diagnosis, Regarding treatment plan, Patient indicated understanding of instructions. DISCHARGE INFORMATION: Discharge Disposition: Home Discharge Location: Home PATIENT EDUCATION INFORMATION Instructions: Asthma, Adult, Ztlr-ua-Flbz Follow-Up: With: Address: When: None Provider Within 3 to 5 days DIAGNOSIS: Asthma exacerbation Patient Understands: Yes - Patient/family/caregive r verbalizes understanding of instructions given Comment: [facility] ED Note - Physicianon 2018 ED Note [...] room.. Impression and Plan Diagnosis Asthma exacerbation (DUK17-DA J45.901, Discharge, Medical) Plan Condition: Improved, Stable. Disposition: Discharged: to home. Patient was given the following educational materials: Asthma, Adult, Nuai-cu-Kgwv, Asthma, Adult, Kkfl-so-Sftl. Follow up with: None Provider Within 3 to 5 days. Counseled: Patient, Regarding diagnosis, Regarding treatment plan, Patient indicated understanding of instructions. [Electronically Signed on: 10/02/2019 21:30 EST] Macho Smith MD [Verified on: 10/02/2019 21:30 EST] Macho Smith MD [facility] ED Patient Education Noteon 10-02-2019 ED Patient [...] pollute the air. These may include household call or contact centre operator, wood smoke, smog, or chemical odors. ? [...] you are not home. Use a vacuum cotton cleaner with a HEPA filter if possible. [...] and water are not available, use hand jute bag sewer. ? Do not allow anyone to smoke in your home. General instructions ? Take tibc-pyc-mkzbjcw and prescription medicines only as told by [...] 03/07/2009 Document Revised: 10/24/2017 Document Reviewed: 10/24/2017 [employer] Interactive Patient Education ? 2019 [employer]. Normal [facility] ED Patient Summaryon 019 ED Patient Summary [facility] - Emergency Department [address] [place] [address] PATIENT DISCHARGE INSTRUCTIONS Patient Information Name: ANGELA HENDRICKSON Age: 33 Years Date of : 1985 Reason For Visit: Wheezing; Cough; DIFFICULTY BREATHING Arrival Time: 10/02/2019 20:04:01 Primary Care Physician: Mercedes, None Attending Physician: Macho Smith MD Comment: Visit Diagnosis: Diagnoses This Visit Asthma exacerbation (J45.901) Cough ([id number]) Wheezing ([id number]) Prescription Information: If you have been given a prescription for narcotics, seek immediate medical attention if you have any difficulty breathing or any sudden status changes such as confusion and sleepiness. If you or anyone you know is experiencing suicidal thoughts, mental health, alcohol and/or drug addiction problems; contact the [facility] 25/04 Crisis Hotline -Text 3GZMF jt 621158. If you received any narcotics, sedation, or [...] and treatment you received today in the [facility] Emergency Department were for an urgent problem and are not intended as complete care. It is important for you to follow up with a doctor, nurse practitioner, or physician?s tiler's assistant for ongoing care. If your symptoms become [...] so we can reach you if necessary. [facility] Emergency Department has provided you with a complete list of medications post discharge. Please inform your automotive engineering technician/provider of your visit and for further instruction [...] pollute the air. These may include household call or contact centre operator, wood smoke, smog, or chemical odors. ? [...] you are not home. Use a vacuum cotton cleaner with a HEPA filter if possible. [...] and water are not available, use hand jute bag sewer. ? Do not allow anyone to smoke in your home. General instructions ? Take jcct-lyl-sustsvi and prescription medicines only as told by [...] 03/07/2009 Document Revised: 10/24/2017 Document Reviewed: 10/24/2017 [employer] Interactive Patient Education ? 2019 [employer] Viruses or Bacteria What?s got you [...] for Disease Control and Prevention June 2014 [facility] C Throaton 09-06-2019 C Throat Ordered by Discern. Normal throat leda isolated No pathogens isolated [facility] Comment on above: Performed By: #### [id number] ####[facility] (DEFAULT)[address] [place] [address] Coding Summaryon 09-06-2019 Coding Summary CODING DATE: 019 [facility] STATUS: Home PAYOR: Medicaid HMO ADMIT DX: [...] terminology. Coded By: Dante Villarreal' Date Saved: 09/06/2019 03:18 pm [facility] Coding Summary CODING DATE: 019 [facility] STATUS: Home PAYOR: Medicaid HMO ADMIT DX: [...] terminology. Coded By: Dante Villarreal' Date Saved: 09/06/2019 03:17 pm [facility] ED Clinical Summaryon 2018 ED Clinical Summary [facility] - Emergency Department [address] [place] [address] ED Clinical Summary PERSON INFORMATION Name: ANGELA HENDRICKSON Age: 33 Years Sex: FEMALE : 1985 MRN: Acct#: Visit Reason: Throat pain - Adult; SORE THROAT, BIALTERAL EAR PAIN Arrival: 09/04/2019 11:12:00 Discharge: 09/04/2019 12:07:00 LOS: 000 00:55 Check In: 09/04/2019 11:12:00 Checkout:09/04/2019 12:07:00 Address: [address] [place] [address] PCP: Provider, None PROVIDER INFORMATION Provider Role Assigned Unassigned Luis Enrique Clark PA-C ED PA 09/04/2019 11:13:06 Luna Tran OIL HEATER OPERATOR Nurse 09/04/2019 11:31:06 VITALS INFORMATION Vital Sign [...] left. This may be further evaluated by research laboratory technician in which you are given information to follow-up with Dr. Evans. Continue Tylenol ibuprofen or Chloraseptic Durham for discomfort. Continue fluids rest. You may return here to the emergency department develop any fever, chills or any other worsening or concerning symptoms. With: Address: When: Tobi Evans [address] [place] [address] Business (1) Within 3 to 5 days DIAGNOSIS: Tonsil stone; Viral pharyngitis Patient Understands: Yes - Patient/family/caregive r verbalizes understanding of instructions given Comment: [facility] ED Note - Physicianon 2018 ED Note [...] care. Impression and Plan Diagnosis Tonsil stone (TLB05-JF J35.8, Discharge, Medical) Viral pharyngitis (JKY20-BP J02.9, Discharge, Medical) Plan Condition: Stable. Disposition: [...] left. This may be further evaluated by research laboratory technician in which you are given information to follow-up with Dr. Evans. Continue Tylenol ibuprofen or Chloraseptic Durham for discomfort. Continue fluids rest. You may return here to the emergency department develop any fever, chills or any other worsening or concerning symptoms.. Counseled: Patient, Regarding diagnosis, Regarding diagnostic results, Regarding treatment plan, Patient indicated understanding of instructions. [Electronically Signed on: 09/04/2019 12:15 EST] Luis Enrique Clark PA-C [Verified on: 09/04/2019 12:15 EST] Luis Enrique Clark PA-C [facility] ED Patient Education Noteon 09-04-2019 ED Patient [...] Follow these instructions at home: ? Take gcro-xcm-frkbned medicines only as told by your health [...] 10/27/2005 Document Revised: 05/15/2017 Document Reviewed: 07/09/2016 [employer] Interactive Patient Education ? 2019 [employer] Pharyngitis Pharyngitis is redness, pain, and [...] Follow these instructions at home: ? Take iayh-wfj-fqtfxot and prescription medicines only as told by [...] 09/19/2006 Document Revised: 10/25/2017 Document Reviewed: 10/25/2017 [employer] Interactive Patient Education ? 2019 Webtab. Normal [facility] ED Patient Summaryon 019 ED Patient Summary [facility] - Emergency Department [address] [place] [address] PATIENT DISCHARGE INSTRUCTIONS Patient Information Name: ANGELA HENDRICKSON Age: 33 Years Date of : 1985 Reason For Visit: Throat pain - Adult; SORE THROAT, BIALTERAL EAR PAIN Arrival Time: 09/04/2019 11:12:00 Primary Care Physician: Provider, None Attending Physician: John Krishnamurthy MD Comment: Visit Diagnosis: Diagnoses This Visit Throat pain - Adult ([id number]) Tonsil stone (J35.8) Viral pharyngitis (J02.9) Prescription Information: If you have been given a prescription for narcotics, seek immediate medical attention if you have any difficulty breathing or any sudden status changes such as confusion and sleepiness. If you or anyone you know is experiencing suicidal thoughts, mental health, alcohol and/or drug addiction problems; contact the [facility] 25/04 Crisis Hotline -Text 0CILW kj 373574. If you received any narcotics, sedation, or [...] left. This may be further evaluated by research laboratory technician in which you are given information to follow-up with Dr. Evans. Continue Tylenol ibuprofen or Chloraseptic Durham for discomfort. Continue fluids rest. You may return here to the emergency department develop any fever, chills or any other worsening or concerning symptoms. With: Address: When: Tobi Evans [address] [place], [place] [id number] Business (1) Within 3 to 5 days Medication Information: The exam and treatment you received today in the [facility] Emergency Department were for an urgent problem and are not intended as complete care. It is important for you to follow up with a doctor, nurse practitioner, or physician?s tiler's assistant for ongoing care. If your symptoms become [...] so we can reach you if necessary. [facility] Emergency Department has provided you with a complete list of medications post discharge. Please inform your automotive engineering technician/provider of your visit and for further instruction [...] Follow these instructions at home: ? Take uvxy-drv-emnrnxx medicines only as told by your health [...] 10/27/2005 Document Revised: 05/15/2017 Document Reviewed: 07/09/2016 [employer] Interactive Patient Education ? 2019 [employer] Pharyngitis Pharyngitis is redness, pain, and [...] Follow these instructions at home: ? Take geff-isf-taebbkl and prescription medicines only as told by [...] 09/19/2006 Document Revised: 10/25/2017 Document Reviewed: 10/25/2017 [employer] Interactive Patient Education ? 2019 Webtab. Viruses or Bacteria What?s got you sick? [...] for Disease Control and Prevention June 2014 [facility] Strep Aon 09-04-2019 Strep procedure control Pass [facility] Comment on above: Performed By: #### [id number] ####[facility] (DEFAULT)[address] [place] [address] Streptococcus A Negative Normal Negative [facility] Comment on above: Performed By: #### [id number] ####[facility] (DEFAULT)[address] [place] [address] Coding Summaryon 09-03-2019 Coding Summary CODING DATE: 019 [facility] STATUS: Home PAYOR: Medicaid HMO ADMIT DX: [...] Alpa Norman Date Saved: 09/03/2019 01:04 pm Normal [facility] C Throaton 09-02-2019 C Throat Ordered by Discern. Normal throat leda isolated No pathogens isolated [facility] Comment on above: Performed By: #### [id number] ####[facility] (DEFAULT)[address] [place] [address] ED Clinical Summaryon 2018 ED Clinical Summary [facility] ? Urgent Care [address] [place] [address] Clinical Summary PERSON INFORMATION Name: ANGELA HENDRICKSON Age: 33 Years Sex: FEMALE : 1985 MRN: Acct#: Visit Reason: UC - Sore Throat; SORE THROAT Arrival: 08/31/2019 17:03:36 Discharge: 08/31/2019 17:39:00 LOS: 000 00:36 Check In: 08/31/2019 17:03:36 Checkout: 08/31/2019 17:39:00 Address: [address] [place] [address] PCP: Rasta Palafox CNP PROVIDER INFORMATION Provider Role Assigned Unassigned Lucia KNIGHT, Raphael ED Nurse 08/31/2019 17:05:27 Esteban Barry ED [...] Sore Throat Follow-Up: With: Address: When: Rasta Palfaox [address] [facility], [address] [place] [address] Business (1) Comments: Your throat [...] verbalizes understanding of instructions given Comment: Normal [facility] ED Patient Summaryon 019 ED Patient Summary [facility] ? Urgent Care [address] [place] [address] PATIENT DISCHARGE INSTRUCTIONS Patient Information Name: ANGELA HENDRICKSON Age: 33 Years Date of : 1985 Reason For Visit: UC - Sore Throat; SORE THROAT Arrival Time: 08/31/2019 17:03:36 Primary Care Physician: Rasta Palafox CNP Attending Physician: Esteban Barry Comment: Patient Education With: Address: When: Rasta Palafox [address] [facility], [address] [place] [address] Business (1) Comments: Your throat sore throat [...] Follow these instructions at home: ? Take ogxq-qgy-xplhfmw medicines only as told by your health [...] 10/27/2005 Document Revised: 05/15/2017 Document Reviewed: 07/09/2016 [employer] Interactive Patient Education ? 2019 [employer] Medication Information: The exam and treatment you received today in the [facility] Emergency Department were for an urgent problem and are not intended as complete care. It is important for you to follow up with a doctor, nurse practitioner, or physician?s tiler's assistant for ongoing care. If your symptoms become [...] so we can reach you if necessary. [facility] Emergency Department has provided you with a complete list of medications post discharge. Please inform your automotive engineering technician/provider of your visit and for further instruction [...] viral pharyngitis (J02.8) UC - Sore Throat ([id number]) If you received any narcotics, sedation, or [...] Stop date 08/31/19 17:10:00 EST, Nurse collect, [id number] Radiology Cardiology Viruses or Bacteria What?s got [...] for Disease Control and Prevention June 2014 [facility] Patient Handouton 08-31-2019 Patient Handout Patient Education [...] Follow these instructions at home: ? Take spgs-mqa-hlksing medicines only as told by your health [...] 10/27/2005 Document Revised: 05/15/2017 Document Reviewed: 07/09/2016 [employer] Interactive Patient Education ? 2019 Webtab. Normal [facility] Strep Aon 08-31-2019 Strep procedure control Pass Normal [facility] Comment on above: Performed By: #### [id number] ####[facility] (DEFAULT)[address] [place] [address] Streptococcus A Negative Normal Negative [facility] Comment on above: Performed By: #### [id number] ####[facility] (DEFAULT)[address] [place] [id number] Urgent Care Note- Provideron 08-31-2019 Urgent Care [...] signs of peritonsillar abscess. Patient's afebrile. Chloraseptic Durham, fluids, salt water gargle. Ibuprofen every 8 hours as needed for discomfort. Tylenol every 4-6 hours as needed for pain. Impression and Plan Diagnosis Acute viral pharyngitis (XKL10-DP J02.8, Discharge, Medical) Plan Condition: Stable. Disposition: [...] prescription, Patient indicated understanding of instructions. Normal [facility] Recordon 019 Urgent Care Record [facility] ? Urgent Care [address] [place] [address] PATIENT DISCHARGE INSTRUCTIONS Patient Information Name: ANGELA HENDRICKSON Age: 33 Years Date of : 1985 Reason For Visit: UC - Sore Throat; SORE THROAT Arrival Time: 08/31/2019 17:03:36 Primary Care Physician: Rasta Palafox CNP Attending Physician: Esteban Barry Comment: Visit Diagnosis: Diagnoses This Visit Acute viral pharyngitis (J02.8) UC - Sore Throat ([id number]) If you received any narcotics, sedation, or [...] legal documents With: Address: When: Rasta Palafox [address] [facility], [address] [place] [address] Business (1) Comments: Your throat [...] and treatment you received today in the [facility] Urgent Care were for an urgent problem and are not intended as complete care. It is important for you to follow up with a doctor, nurse practitioner, or physician?s tiler's assistant for ongoing care. If your symptoms become [...] so we can reach you if necessary. [facility] Care has provided you with a complete list of medications post discharge. Please inform your automotive engineering technician/provider of your visit and for further instruction [...] Follow these instructions at home: ? Take aloj-aqr-lpxetqf medicines only as told by your health [...] 10/27/2005 Document Revised: 05/15/2017 Document Reviewed: 07/09/2016 [employer] Interactive Patient Education ? 2019 [employer] Viruses or Bacteria What?s got you [...] Disease Control and Prevention June 2014 Normal [facility] Vital Signs Date Time Vital Sign Value Performing Clinician Ning johnson 12-12-2023 12:06-0400 Body height 149.9 cm Katherine Doss MD Work Phone: [employer] 12-12-2023 12:06-0400 Body mass index (BMI) [Ratio] 53.73 kg/m2 Katherine Doss MD Work Phone: [employer] 12-12-2023 12:06-0400 Body weight 120.66 kg Katherine Doss MD Work Phone: [employer] 12-12-2023 12:06-0400 Diastolic blood pressure 78 mm[Hg] Katherine Doss MD Work Phone: [employer] 12-12-2023 12:06-0400 Heart rate 67 /min [facility] 12-12-2023 12:06-0400 SaO2% (BldA) [Mass fraction] 96 % Katherine Doss MD Work Phone: [employer] 12-12-2023 12:06-0400 Systolic blood pressure 129 mm[Hg] Katherine Doss MD Work Phone: [employer] 12-22-2020 11:30-0400 Body Temperature 98.4 [degF] [facility] Work Phone: 12-22-2020 11:30-0400 BP Diastolic 73 mm[Hg] [facility] Work Phone: 12-22-2020 11:30-0400 BP Systolic 102 mm[Hg] [facility] Work Phone: 12-22-2020 11:30-0400 Pulse (Heart Rate) 79 /min [facility] Work Phone: 12-22-2020 11:30-0400 Pulse Oximetry 99 % [facility] Work Phone: 12-22-2020 11:30-0400 Respiratory Rate 18 /min [facility] Work Phone: 12-22-2020 08:14-0400 BMI (Body Mass Index) 54.13 kg/m2 [facility] Work Phone: 12-22-2020 08:14-0400 Body weight 121.56 kg [facility] Work Phone: 12-22-2020 08:14-0400 Height 149.9 cm [facility] Work Phone: 03-31-2020 12:41-0400 Body Temperature 97.2 [degF] [place], [place] 03-31-2020 12:41-0400 BP Diastolic 77 mm[Hg] [place], [place] 03-31-2020 12:41-0400 BP Systolic 125 mm[Hg] [place] 03-31-2020 12:41-0400 Pulse (Heart Rate) 80 /min [place], [place] 03-31-2020 12:41-0400 Pulse Oximetry 96 % [place] 03-31-2020 12:41-0400 Respiratory Rate 17 /min [place], [place] 03-31-2020 11:32-0400 BMI (Body Mass Index) 54.13 kg/m2 Kolby Raymundo [place], [place] 03-31-2020 11:32-0400 Body weight 121.56 kg [place], [place] 03-31-2020 11:32-0400 Height 149.9 cm [place] Encounters Encounter Date Encounter Type Care Provider Facility Start: 07-18-2024 End: 07-18-2024 ambulatory LAURENT SIERRA Not Available Start: 07-17-2024 End: 07-17-2024 Bamboo flowsjordi Sierra DPM Work Phone: [facility] Start: 07-17-2024 End: 07-17-2024 Bamboo flowsheet Laurent Sierra DPM Work Phone: [facility] Start: 04-12-2024 End: 04-12-2024 ambulatory DELMY Campoverde MIKKIAMEENA Not Available Start: 03-28-2024 End: 03-28-2024 ambulatory LAURENT A THONG Not Available Start: 03-15-2024 End: 03-15-2024 ambulatory LAURENT PEPPER Not Available Start: 03-14-2024 End: 03-14-2024 ambulatory DELMY YEPEZ Not Available Start: 03-06-2024 End: 03-06-2024 ambulatory [facility] Start: 03-06-2024 Encounter for other preprocedural examination [facility] Start: 02-21-2024 End: 02-21-2024 ambulatory DWAYNE Brooks BRENNA [facility] Start: 02-06-2024 End: 02-06-2024 ambulatory INGRID CULVER [facility] Start: 12-12-2023 End: 12-12-2023 ambulatory KATHERINE DOSS [facility] Start: 12-12-2023 End: 12-12-2023 Office outpatient visit 15 minutes Katherine Doss MD Work Phone: [facility] Comment on above: MUKESH (obstructive sle ep apnea) (Primary Dx) Start: 12-07-2023 End: 12-07-2023 ambulatory LAURENT SIERRA Not Available Start: 11-08-2023 Refill Katherine fiore MD Work Phone: [facility] Comment on above: Moderate persistent asthma, unspecified whether complicated Start: 10-10-2023 Refill Katherine fiore MD Work Phone: [facility] Comment on above: Moderate persistent asthma, unspecified whether complicated Start: 08-17-2023 End: 08-17-2023 ambulatory LAURENT A RUSHER Not Available Start: 02-13-2023 End: 02-13-2023 ambulatory GEOVANNI AVALOS . Facility: Start: 01-05-2021 End: 01-05-2021 Patient encounter procedure KOLBY RAYMUNDO [facility] Start: 12-22-2020 End: 12-22-2020 Patient encounter procedure KOLBY RAYMUNDO [facility] Start: 12-22-2020 End: 12-22-2020 Subsequent hospital visit by physician Kolby Raymundo Work Phone: [facility] Comment on above: Post-op pain (Primar y Dx) Start: 03-31-2020 End: 03-31-2020 Patient encounter procedure INGRID CULVER [facility] Start: 03-31-2020 End: 03-31-2020 Subsequent [...] Start: 12-22-2020 Glucose blood reagen t strip Kolbydelon Raymundo Work Phone: Start: 12-22-2020 Fluoroscopy during operation Kolby Raymundo Work Phone: Start: 12-22-2020 Gonadotropin chorion ic qualitative Rosana Wilhelm Work Phone: Start: 12-22-2020 Glucose blood reagen t strip Kolbydelon Raymundo Work Phone: Start: 06-10-2020 Microscopic observat [...] DTaP,Tdap and Td Vaccines (2 - Tdap) [facility] Start: 12-11-2024 Adult BMI Screening Adult BMI Screen ing [facility] Start: 08-27-2024 End: 08-27-2024 Patient encounter procedure 08/27/2024 1:20 PM EST [facility] [address] [place] [address] Delmy Yepez, TOOL AND PRODUCTION PLANNER [address] [place] [address] [facility] Start: 07-18-2024 End: 07-18-2024 Patient encounter procedure 07/18/2024 2:15 PM EDT Procedure Visit [facility] [address] [place] [id number] Laurent Sierra, DPM [address] [place], [place] [id number] Arrived [facility] Comment on above: Arrived Start: 06-25-2024 End: 06-25-2024 Patient encounter procedure 06/25/2024 2:30 PM EDT [facility] [address] [place] [id number] Katherine Doss MD [address] [facility] [address] [place] [address] [facility] Start: 06-03-2024 Influenza vaccination Influenza Vacc ine (#1) [facility] Start: 04-11-2024 Adult BMI Screening Adult BMI Screen ing [facility] Start: 02-06-2024 End: 02-06-2024 Patient encounter procedure 02/06/2024 8:30 AM EDT Office Visit [facility] [address] [place] [address] [facility] Start: 02-02-2024 Adult BMI Follow Up Plan Adult BMI Follow Up Plan [facility] Start: 02-02-2024 Tobacco Screening Tobacco Screening [facility] Start: 12-12-2023 End: 12-12-2023 Patient encounter procedure 12/12/2023 12:15 PM EDT Office Visit [facility] [address] [address] Katherine Doss MD [address] [place] [address] [facility] Start: 06-10-2023 Screening for malign ant neoplasm of cervix Pap Smear [facility] Start: 06-03-2023 COVID-19 Vaccine ( season) COVID-19 Vaccine ( season) [facility] Start: 06-03-2023 Influenza vaccination Influenza Vacc ine [facility] Start: 09-11-2022 Depression Screening Depression Scre ening [facility] Start: 01-05-2021 End: 01-05-2021 Hospital Encounter [facility] Comment on above: 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 Start: 06-03-2020 Influenza vaccination [place], [place] Start: 2015 Screening for malign ant neoplasm of cervix [facility] Start: 2006 Screening for malign ant neoplasm of cervix [facility] Start: 2004 DTaP/Tdap/Td vaccine (1 - Tdap) DTaP/Tdap/Td vaccine (1 - Tdap) [place] Start: 2003 Diabetic foot examination Diabetic Foot Exam [facility] Start: 2001 COVID-19 Vaccine (1) COVID-19 Vaccin e (1) [facility] Work Phone: Start: 2000 HIV screening HIV screen [place], [place] Start: 1995 Lipid panel [facility]id screen [facility] Work Phone: Start: 1986 Varicella vaccine (1 of 2 - 2-dose childhood series) Varicella vaccine (1 of 2 - 2-dose childhood series) [facility] [email or web address] Start: 1985 Creatinine measurement Creatinine mo nitoring [email or web address] Phone: Start: 1985 Glaucoma screening [facility] Start: 1985 Hepatitis C screening Hepatitis C sc reen [email or web address] Phone: Start: 1985 Potassium monitoring Potassium monit oring [email or web address] Phone: End: 12-23-2020 Blood glucose - POCT Blood glucose - POCT Point of Care Testing Routine One Time for 1 Occurrences starting 12/23/2020 until 12/23/2020 [email or web address] Phone: Comment on above: One Time for 1 Occur rences starting 12/23/2020 until 12/23/2020 Continuous pulse oximetry Pulse oximetry, continuous Respiratory Care Routine Every 4hr until discontinued starting 12/23/2020 [email or web address] Phone: Comment on above: Every 4hr until disc ontinued starting 12/23/2020 End: 03-27-2020 COVID-19 COVID-19 Lab Routine One Time for 1 Occurrences starting 03/27/2020 until 03/27/2020 [facility] [place] Comment on above: One Time for 1 Occur rences starting 03/27/2020 until 03/27/2020 Immunizations Immunization Date Immunization Notes Care Provider [facility] 11-26-2020 diphtheria, tetanus toxoids and pertussis vaccine Katherine Doss MD Work Phone: [facility] [place] [facility] [place] 07-30-2020 influenza, injectabl e, quadrivalent, preservative free Laurent Sierra DPM Work Phone: [facility] 07-30-2020 influenza virus vaccine, unspecified formulation Laurent Sierra DPM Work Phone: [facility] 06-26-2020 influenza virus vaccine, unspecified formulation [facility] MD [facility] 06-28-2019 influenza, injectabl e, quadrivalent, contains preservative Laurent Sierra DPM Work Phone: [facility] Payers Date Payer Category Payer Medicaid (Managed Care) [employer] [id number] 2014 Unknown [facility] PL[facility] xxxxxxxxxxxx 2014-Present [phone] [place] [id number] xxxxxxxxxxxx [id number] 2003 Medicaid [employer] [id number] 2003-Present [phone] [place] [id number] 1985 Unknown [id number] 2.16.840.1.741511.3.579.2. 177 1985 Unknown [id number] 2.16.840.1.656151.3.579.2. 177 1985 Unknown [id number] 2.16.840.1.183923.3.579.2. 175 1985 Unknown [id number] 2.16.840.1.608919.3.579.2. 593 1985 Unknown [id number] 2.16.840.1.698067.3.579.2. 1286 1985 Unknown [id number] 2.16.840.1.381766.3.579.2. 1286 1985 Unknown [id number] 2.16.840.1.823334.3.579.2. 1286 1985 Unknown [id number] 2.16.840.1.697461.3.579.2. 1286 1985 Unknown [id number] 2.16.840.1.362538.3.579.2. 9 1985 Unknown [id number] 2.16.840.1.001666.3.579.2. 9 1985 Unknown [id number] 2.16.840.1.805466.3.579.2. 9 1985 Unknown [id number] 2.16.840.1.207721.3.579.2. 9 1985 Unknown [id number] 2.16.840.1.980784.3.579.2. 9 1985 Unknown [id number] 2.16.840.1.528122.3.579.2. 9 1985 Unknown [id number] 2.16.840.1.852507.3.579.2. 9 1959 Unknown [id number] [id number]. [id number] Social History Date Type Detail Facility Start: 03-31-2020 End: 04-28-2023 Tobacco smoking status [facility] Never smoker [facility] Start: 03-31-2020 End: 04-12-2024 Alcohol intake Lifetime non-drinker (finding) [place] Start: 03-31-2020 History SDOH Alcohol Frequency 1 [place] Start: 1985 Sex Assigned At Not on file [place], [place] Exposure to SARS-CoV -2 (event) Unable to assess [place] Start: 12-22-2020 End: 04-28-2023 Tobacco use and exposure Never used [facility] [email or web address] Work Phone: Exposure to SARS-CoV -2 (event) Not sure [place] Work Phone: Start: 02-01-2023 End: 12-12-2023 Alcohol intake Current non-drinker of alcohol (finding) [facility] Start: 02-01-2023 End: 04-12-2024 History of Social function [facility] Start: 02-01-2023 End: 04-12-2024 Tobacco use panel [facility] Adolescent depressio n screening assessment 3 [facility] Start: 1985 [facility] Start: 04-30-2019 Gender identity Identifies as female gender (finding) [facility] Start: 04-27-2023 Alcohol Comment Caffeine intak e: >4 cups per day pop [facility] Medical Equipment Procedure Code Equipment Code Equipment [...] note were not included. [address] [place] [address] Patient: Angela Hendrickson Date of : 1985 [...] PM 03/22/2022 8:25 PM 04/11/2023 9:00 AM Boyd Sleepiness Scale Sitting and Reading 2 0 [...] Katherine Doss MD [facility]monary [facility] Past Medical, Family, and Social [...] Alcohol Use No documented in this encounter [facility] Inst[facility] 12-12-2023 Patient Instructions Note Date & Type Note Facility 12-12-2023 Instructions Katherine Doss MD - 12/12/2023 12:15 PM EDT 1. Dentist to fit for oral mandibular advancement device (OMAD) 2. Continue to work on weight loss 3. Discussion about inspire, not a candidate at this time 4. Follow up in 6 months documented in this encounter [email or web address] [facility] Evaluation note Note Date & Type Note Facility Evaluation note Diagnosis Moderate persistent asthma, unspecified whether complicated documented in this encounter [facility] Evaluation note Note Date & Type Note Facility Evaluation note Diagnosis MUKESH (obstructive sleep apnea)- Primary Obstructive sleep apnea (adult) (pediatric) documented in this encounter [email or web address] Instructions Note Date & Type Note Facility Instructions Not on filedocumented in this en counter [facility] Discharge Instructions * Instructions* Suze Rodrigues [...] please feel free to call us at [phone]. Follow-up should be scheduled for 1 week. -Regular Diet. -Resume all home medications. 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 [...] MD documented in this encounter Advance Directives Documents on File Type Date Recorded Patient Cable Assembler Expl anation Advance Directives and Living Will Power of Pipe Blanks Cut Off Saw Operator Documents on File Type Date Recorded Patient Cable Assembler Expl anation Advance Directives and Living Will Power of Pipe Blanks Cut Off Saw Operator Documents on File Type Date Recorded Patient Cable Assembler Expl anation ACP-Advance Directive ACP-Power of Pipe Blanks Cut Off Saw Operator Summary Purpose Family History No Family History [...] incontinence in female DX URINARY INCONTINENCE Procedures IA COMPLEX CYSTOMETROGRAM VOIDING PRESSURE STUDIES URODNYAMICS Kolby Raymundo MD [address] [place] [address] [facility] Status Reason Specialty Diagnoses / Procedures Re ferred By Contact Referred To Contact Diagnoses Urinary incontinence DX URINARY INCONTINENCE Procedures IA INC IMPLTJ NEUROSTIMULATOR ELTRD SACRAL NERVE INTERSTIM STAGE ONE - LEANDRO Kolby Raymundo MD [address] [address] [facility] Reason Comments Med Refill Reason Comments Follow-up Sleep Apnea DME: MSCNot using PA P machineSampled Wisp Fit Pack at last visit INFORMATION SOURCE (unrecogn ized section and content) DATE CREATED AUTHOR 07/07/2020 Yimi Griffiths [facility] DATE CREATED AUTHOR AUTHOR'S ORGANIZ ATION 08/13/2020 [facility] DATE CREATED AUTHOR AUTHOR'S ORGANIZ ATION 12/22/2020 [facility] DATE CREATED AUTHOR AUTHOR'S ORGANIZ ATION 01/06/2021 [facility] DATE CREATED AUTHOR AUTHOR'S ORGANIZ ATION 09/11/2021 [facility] DATE CREATED AUTHOR AUTHOR'S ORGANIZ ATION 02/16/2023 [facility] DATE CREATED AUTHOR AUTHOR'S ORGANIZ ATION 02/23/2024 [facility] DATE CREATED AUTHOR AUTHOR'S ORGANIZ ATION 03/07/2024 [facility] DATE CREATED AUTHOR AUTHOR'S ORGANIZ ATION 07/19/2024 [facility] Specialists EPIC Ordered Prescriptions (unrec ognized section and content) [...] Care Teams (unrecognized sec tion and content) Size Worker Relationship Specialty Start Date End Date Ingrid Culver APRN-ARUN [address] [place] [id number] PCP - General Family Medicine 10/22/19 Size Worker Relationship Specialty Start Date End Date Lizbeth Snyder APRN-NP [address] [place] [address] [place] [address] PCP - General 12/10/23 Size Worker Relationship Specialty Start Date End Date Lizbeth Snyder NP [address] [place] [address] [place] [address] PCP - General Family Medicine 03/14/24 Ingrid Culver MD [address] [place] [address] Referring Physician Family Medicine 08/17/23 FOR RECORDS PERTAINING TO PATIENTS WHO ARE [...] BE BASED ON THE PRIMARY CLINICAL RECORDS. [facility]. provides no warranty or guarantee of the accuracy or completeness of information in this document.
== END 2024-07-20 14:23 | disposition home or self-care (01) ==
LOC: MN 14:23
PROVIDERS: PCP Nurse Practitioner Family
DX: E63.8 Other specified nutritional deficiencies (principal); Z71.3 Dietary counseling and surveillance; E66.9 Obesity, unspecified; E08.40 Diabetes mellitus due to underlying condition with diabetic neuropathy, unspecified
CPT/HCPCS: 97802

== ENCOUNTER 2024-09-14 10:49 | Emergency (ER) | payer OTHER, SELFPAY ==
[2024-09-14 10:55] VITALS: BP 135/89; PULSE 83; TEMP 36.7; O2SAT 96; BMI 54.3
--- OUTSIDE RECORDS SUMMARY | 2024-09-14 11:15 | XMS_ITS | CCD ---
Author Organization [facility] Care Team Providers Care Lifestyle Coordinator Name Role Phone Ingrid Culver Primary Care Provider INGRID CULVER Primary Care Unavailable KOLBY ELLIS Attending Unavailable RHONDA, KOLBY Admitting Unavailable KOLBY ELLIS Admitting Unavailable INGRID CULVER Primary Care Unavailable KOLBY ELLIS Attending Unavailable RHONDA, KOLBY Admitting Unavailable KOLBY ELLIS Attending Unavailable INGRID CULVER Primary Care Unavailable GEOVANNI CUEVAS Admitting Unavailable VIANCA BLANCHARD Consulting Unavailable DR DIONICIO BARBOUR Primary Care Unavailable GEOVANNI CUEVAS Attending Unavailable ANDREINA DHILLON Consulting Unavailable GEOVANNI CUEVAS Consulting Unavailable LUISA RANGEL Consulting Unavailable Palomo HOT PATCHER-STREET CONTRACTORIngrid Primary Care Provider Claudio HOT PATCHER-STATE APPELLATE CLERK, Lizbeth Primary Care Provid er LIZBETH SNYDER Referring Unavailable LIZBETH SNYDER Primary Care Unavailable Ingrid Culver MD Unavailable Claudio STATE APPELLATE CLERKLizbeth Primary Care Provider KATHERINE DOSS Attending Unavailable INGRID CULVER Referring Daisyvaleslie labLIZBETH Linares Primary Care Unavailable INGRID CULVER Referring Unavai labdesirae ROBLESRBACHELIZBETH Hummel Primary Care Unavailable DWAYNE CEJA Attending Unavailable LIZBETH SNYDER Referring Unavailable LIZBETH SNYDER Primary Care Unavailable KATHERINE DOSS Attending Unavailable LIZBETH SNYDER Referring Unavailable LIZBETH SNYDER Primary Care Unavailable Laurent Ragland MD Unavailable Yamile Sy Unavailable LAURENT SIERRA Attending Unavailable DELMY PICHARDO Attending Unavailable LAURENT RAGLAND Attending Unavailable DELMY PICHARDO Referring Unavailable LAURENT SIERRA Attending Unavailable DELMY PICHARDO Attending Unavailable LAURENT SIERRA Attending Unavailable LAURENT SIERRA Attending Unavailable LAURENT SIERRA Referring Unavailable YAMILE LOFTON Attending Unavailable Allergies Allergy Classification Reported Allergen(s) Allergy Type Date of Onset Reaction(s) Facility (11 sources) Loratadine; Translations: [LORATADINE] Drug Allergy 07-20-20 17 Palpitations [place], [place] (20 sources) methylPREDNISolone; Translations: [METHYLPREDNISOLONE] Drug Allergy 04-09-20 19 Hives, Unknown [place], [place] (1 source) Loratadine Drug Allergy 03-20-20 17 [facility] (3 sources) metFORMIN; Translations: [METFORMIN] Drug Allergy 02-14-20 23 [facility] (1 source) methylPREDNISolone Drug Allergy [facility] Repository (19 sources) oxyCODONE; Translations: [OXYCODONE] Drug Allergy 07-22-20 21 Rash, Unknown [facility] (10 sources) Loratadine Allergy to substance 07-20-20 17 Palpitations, Unknown [facility] (14 sources) metFORMIN Drug Allergy 04-28-20 23 Unknown, Diarrhea [facility] Medications Current Medications Medication Drug Class(es) Dates Sig (Normalized) Sig (Original) acetaminophen 325 mg / HYDROcodone bitartrate 5 mg oral tablet (10 sources) Opioid Agonist HYDROcodone-acet am inophen ([place]) 5-325 MG tablet Active [id number] 200 actuat albuterol 0.09 mg/actuat metered dose inhaler (12 sources) beta2-Adrenergic Agonist Start: 11-11-2022 End: 09-04-2024 take 2 puff(s) by mouth every four to six hours as needed VENTOLIN HFA 90 mcg/actuation inhaler Indications: Moderate persistent asthma, unspecified whether complicated INHALE 2 PUFFS BY MOUTH EVERY 4 TO 6 HOURS NEEDED 18 g 10 09/04/2024 Active take 2 puff(s) by in halation every six hours as needed for wheezing albuterol sulfate HFA (VENTOLIN HFA) 108 (90 Base) MCG/ACT inhaler Inhale 2 puffs into the lungs every 6 hours as needed for Wheezing 0 Active Apple Cider Vinegar (10 sources) Apple Cider Vine gar 188 MG capsule Apple Cider Vinegar Active ARIPiprazole 10 mg oral tablet (7 sources) Atypical Antipsychotic Start: 05-19-20 take 1 tablet by mouth in the morning ARIPiprazole (ABILIFY) 10 mg tablet Take 1 tablet (10 mg total) by mouth in the morning. 05/19/2022 Active atorvastatin 20 mg oral tablet (10 sources) HMG-CoA Reductase Inhibitor Start: 12-10-19 atorvastatin (LIPITOR) 20 mg tablet 12/09/2022 Active take 1 tablet by mouth once carlos y atorvastatin (LIPITOR) 20 MG tablet Take 20 mg by mouth daily 0 Active 60 actuat budesonide 0.16 mg/actuat / formoterol fumarate 0.0045 mg/actuat metered dose inhaler (8 sources) Corticosteroid, beta2-Adrenergic Agonist Start: 12-10-2022 End: [...] Active busPIRone hydrochloride 15 mg oral tablet (20 sources) Start: 07-21-2021 busPIRone (BUSPAR) 15 mg tablet 4 (four) times a day. 07/21/2021 Active take 1 tablet by mouth [...] mg / cholecalciferol 200 unt oral tablet (10 sources) Vitamin D Calcium Citrate-Vitamin D (Calcium + D) 315-5 MG-MCG tablet Calcium + D Active cephalexin 500 mg oral capsule (1 source) Cephalosporin Antibacterial Start: 2020 End: 2020 take 1 capsule by mouth three times daily cephALEXin (KEFLEX) 500 MG capsule Take 1 capsule by mouth 3 times daily for 5 days 15 capsule 0 12/22/2020 12/27/2020 Active cetirizine hydrochloride 10 mg oral tablet (20 sources) Histamine-1 Receptor Antagonist cetirizine (ZyrTEC) 10 MG tablet Active cholecalciferol 0.05 mg oral capsule (7 sources) Vitamin D Start: 2021 take 1 capsule by mouth in the morning VITAMIN D3 50 mcg (2,000 unit) capsule Take 1 capsule (2,000 Units total) by mouth in the morning. 12/03/2021 Active 0.5 ml dulaglutide 1.5 mg/ml auto-injector (8 sources) GLP-1 Receptor Agonist Start: 2023 inject 0.5 mL by subcutaneous injection every week Trulicity 0.75 MG/0.5ML solution auto-injector INJECT 0.5ml SUBCUTANEOUSLY (UNDER THE SKIN) ONCE A WEEK 06/22/2024 Active famotidine 20 mg oral tablet (7 sources) Histamine-2 Receptor Antagonist Start: 2022 famotidine (PEPCID) 20 mg tablet 12/09/2022 Active gabapentin 100 mg oral capsule (20 sources) Anti-epileptic Agent Start: 2023 End: 2024 take 1 capsule by mouth three times daily in the morning gabapentin (Neurontin) 100 MG capsule Indications: Paresthesia Take 1 capsule (100 mg) by mouth in the morning and 1 capsule (100 mg) in the evening and 1 capsule (100 mg) before bedtime. In addition to 400mg TID. 90 capsule 1 09/10/2024 09/10/2024 Discontinued (Reorder) Start: 04-12-2024 End: 04-12-2025 take 1 capsule by mouth in the [...] 0 Active hydroCHLOROthiazide 25 mg oral tablet (20 sources) Thiazide Diuretic take 1 tablet by mouth once daily hydroCHLOROthiazide (HYDRODiuril) 25 MG tablet Take 25 mg by mouth Daily Active take 1 capsule by [facility] once daily in the morning hydroCHLOROthiazide (MICROZIDE) 12.5 mg capsule 1 capsule in the morning Orally Once a day for 30 day(s) Active hydrOXYzine pamoate 25 mg oral capsule (17 sources) Antihistamine Start: 07-21-2021 take 1 capsule by mouth three times daily as needed hydrOXYzine (VISTARIL) 25 mg capsule Take 1 capsule (25 mg total) by mouth 3 (three) times a day as needed. 07/21/2021 Active take 1 capsule by [facility] twice daily as needed hydrOXYzine pamoate (Vistaril) 25 MG capsule TAKE 1 CAPSULE BY MOUTH TWICE PER DAY NEEDED Active isopropyl alcohol 0.7 ml/ml medicated pad (7 sources) Start: 05-27-2020 EASY TOUCH ALCOHOL PREP PADS pads, medicated 05/27/2020 Active levothyroxine sodium 0.05 mg oral tablet (20 sources) l-Thyroxine levothyroxine (Synthroid, Levoxyl) 50 MCG tablet Active 10 ml lidocaine hydrochloride 10 mg/ml injection (1 source) Antiarrhythmic, Amide Local Anesthetic Start: 12-23-2020 End: 12-23-2020 lidocaine PF 1 % injection 1 mL lisinopril 2.5 mg oral tablet (20 sources) Angiotensin Converting Enzyme Inhibitor lisinopril 2.5 MG tablet Active loperamide hydrochloride 2 mg oral capsule (13 sources) Opioid Agonist loperamide (Imodium) 2 MG capsule take 1 capsule by mouth if needed AFTER EACH LOOSE STOOL NOT TO EXCEED 8 CAPSULES PER DAY Active meloxicam 15 mg oral tablet (13 sources) Nonsteroidal Anti-inflammatory Drug take 1 tablet [...] mirabegron 50 mg extended release oral tablet (7 sources) beta3-Adrenergic Agonist Start: 11-13-19 take 1 tablet by mouth every twenty-four hours in the morning MYRBETRIQ 50 mg tablet extended release 24 hr Take 1 tablet (50 mg total) by mouth in the morning. 11/13/2021 Active montelukast 10 mg oral tablet (17 sources) Leukotriene Receptor Antagonist montelukast (Singulair) 10 MG tablet Active nitrofurantoin, macrocrystals 25 mg / nitrofurantoin, monohydrate 75 mg oral capsule (10 sources) Nitrofuran Antibacterial take 1 capsule by mouth every twelve hours at mealtime nitrofurantoin, macrocrystal-monohy drate, (Macrobid) 100 MG capsule TAKE 1 CAPSULE BY MOUTH EVERY 12 HOURS WITH FOOD Active omeprazole 40 mg delayed release oral capsule (20 sources) Proton Pump Inhibitor Start: 11-23-19 23 take 1 capsule by mouth once daily omeprazole (PriLOSEC) 40 mg capsule Take 1 capsule (40 mg total) by mouth nightly. 11/23/2022 Active omeprazole (PriL OSEC) [address] capsule Active take 1 capsule by mouth once celeste ly omeprazole (PRILOSEC) 10 MG delayed release capsule Take 10 mg by mouth daily 0 Active ondansetron 4 mg oral tablet (10 sources) Serotonin-3 Receptor Antagonist ondansetron (Zofran) 4 MG tablet Active 24 hr oxybutynin chloride 10 mg extended release oral tablet (13 sources) Cholinergic Muscarinic Antagonist Start: 09-23-2022 oxybutynin XL (Ditropan-XL) 10 MG 24 hr tablet 09/23/2022 Active take 1 tablet by mouth twice celeste ly oxybutynin (DITROPAN-XL) 10 MG extended release tablet Take 10 mg by mouth 2 times daily 0 Active Ozempic, 1 MG/DOSE, 4 MG/3ML solution pen-injector (10 sources) Start: 04-19-2023 inject 1 [IU] by subcutaneous injection every week Ozempic, 1 MG/DOSE, 4 MG/3ML solution pen-injector INJECT 1 UNITS DOSE SUBCUTANEOUSLY ON TUESDAY OF EACH WEEK 04/19/2023 Active predniSONE 10 mg oral tablet (6 sources) Start: 07-20-2024 predniSONE (Deltasone) 10 MG tablet Indications: Capsulitis of right foot , Sprain of ligament of tarsometatarsal joint of right foot, sequela , Pain in joint of right foot , Difficulty walking 1 tablet twice daily x 7 days; followed by 1 tablet daily as directed until complete 21 tablet 07/20/2024 Active 12 hr pseudoephedrine hydrochloride 120 mg extended release oral tablet (10 sources) alpha-Adrenerg ic Agonist pseudoephedrine ER (Sudafed-12 Hour) 120 MG 12 hr tablet Active sertraline 100 mg oral tablet (20 sources) Serotonin Reuptake Inhibitor Start: 07-21-2021 take 1 tablet by mouth in the morning sertraline (ZOLOFT) 100 mg tablet Take 1 tablet (100 mg total) by mouth in the morning. 07/21/2021 Active take 1 tablet by mouth once carlos y sertraline (ZOLOFT) 50 MG tablet Take 50 mg by mouth daily 0 Active SITagliptin 100 mg oral tablet (20 sources) Dipeptidyl Peptidase 4 Inhibitor Start: 09-21-2023 [...] Active traZODone hydrochloride 50 mg oral tablet (15 sources) Serotonin Reuptake Inhibitor Start: 04-21-2023 take 1 tablet by mouth at bedtime traZODone (Desyrel) 50 MG tablet Take 50 mg by mouth at bedtime. 04/21/2023 Active Turmeric extract (10 sources) Turmeric powder as directed Active Completed/Discontinued Medications Medication Drug Class(es) Dates Sig (Normalized) Sig (Original) QUEtiapine 100 mg oral tablet (13 sources) Atypical Antipsychotic Start: 06-02-2020 End: 12-12-2023 [...] ABDOMINAL PAIN] Onset: 02-13-2023 Episodic Anxiety disorders (7 sources) Generalized anxiety disorder; Translations: [Generalized anxiety disorder] Onset: 07-29-2021 07-29-2021 Chronic Asthma (4 sources) Moderate persistent asthma; Translations: [Moderate persistent asthma, uncomplicated] Onset: 03-06-2024 10-10-2023 Chronic Chronic ulcer of skin (8 sources) Non-pressure chronic ulcer of right heel and midfoot limited to breakdown of skin; Translations: [Ulcer of heel and midfoot] Onset: 07-29-2021 07-29-2021 Chronic Contraceptive and procreative management (1 source) Encounter for sterilization; Translations: [Encounter for sterilization] Onset: 03-06-2024 Episodic Developmental disorders (8 sources) Developmental academic disorder; Translations: [Developmental disorder of scholastic skills, unspecified] Onset: 07-29-2021 07-29-2021 Chronic Diabetes mellitus with complications (1 source) Type 2 diabetes mellitus with diabetic polyneuropathy; Translations: [Type 2 diabetes mellitus with diabetic polyneuropathy] Onset: 05-03-2019 Chronic Diabetes mellitus without complication (7 sources) Type 2 diabetes mellitus; Translations: [Type 2 diabetes mellitus without complications] Onset: 05-03-2019 05-03-2019 Chronic E Codes: Fall (1 source) Unspecified fall, initial encounter; Translations: [UNSPECIFIED FALL INITIAL ENCOUNTER] Onset: 02-15-2023 Episodic Essential hypertension (8 sources) Hypertensive disorder; Translations: [Essential (primary) hypertension] Onset: 05-03-2019 05-03-2019 Chronic Menopausal disorders (1 source) Hormone replacement therapy; Translations: [HORMONE REPLACEMENT THERAPY] Onset: 02-15-2023 Episodic Miscellaneous mental health disorders (8 sources) Dissociative convulsions; Translations: [Conversion disorder with seizures or convulsions] Onset: 02-10-2022 02-10-2022 Chronic Mood disorders (8 sources) Recurrent major depressive episodes, moderate ; Translations: [Major depressive disorder, recurrent, moderate] Onset: 07-29-2021 07-29-2021 Chronic Other aftercare (1 source) Other penitentiary (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; Translations: [OTH BROACH SETTER CURRENT DRUG THERAPY] Onset: 02-15-2023 Episodic Other connective tissue disease (2 sources) Pain in toe; Translations: [Pain in right toe(s)] 07-18-2024 Episodic Other connective tissue disease (2 sources) Capsulitis; Translations: [Other enthesopathies, not elsewhere classified] 07-20-2024 Episodic Other lower respiratory disease (1 source) Pleurodynia; Translations: [PLEURODYNIA] Onset: 02-15-2023 Episodic Other nervous system disorders (2 sources) Difficulty walking; Translations: [Difficulty in walking, not elsewhere classified] 07-20-2024 Chronic Other nervous system disorders (1 source) Postoperative pain ; Translations: [Post-op pain] Episodic Other nervous system disorders (5 sources) Paresthesia; Translations: [Paresthesia of skin] 09-10-2024 Episodic Other non-traumatic joint disorders (2 sources) Pain of joint of right foot; Translations: [Pain in right ankle and joints of right foot] 07-20-2024 Episodic Other nutritional; endocrine; and metabolic disorders (3 sources) Severe obesity; Translations: [Morbid (severe) obesity due to excess calories] Onset: 05-03-2019 05-03-2019 Chronic Other nutritional; endocrine; and metabolic disorders (1 source) Morbid (severe) obesity due to excess calories; Translations: [Morbid (severe) obesity due to excess calories] Onset: 02-06-2024 Chronic Other nutritional; endocrine; and metabolic disorders (4 sources) Morbid obesity; Translations: [Morbid (severe) obesity due to excess calories] Onset: 05-03-2019 02-06-2024 Chronic Other skin disorders (1 source) Dystrophia unguium; Translations: [Nail dystrophy] 07-18-2024 Episodic Other skin disorders (1 source) Ingrowing nail; Translations: [Ingrowing nail] 07-18-2024 Episodic Residual codes; unclassified (3 sources) Obstructive sleep apnea syndrome; Translations: [Obstructive sleep apnea (adult) (pediatric)] 12-12-2023 Chronic Residual codes; unclassified (1 source) Obstructive sleep apnea (adult) (pediatric); Translations: [Obstructive sleep apnea (adult) (pediatric)] Onset: 08-13-2024 Chronic Residual codes; unclassified (1 source) Sleep apnea Onset: 12-12-2023 Chronic Sprains and strains (3 sources) Strain of muscle, fascia and tendon of lower back, initial encounter; Translations: [Sprain of ligament of tarsometatarsal joint] Onset: 02-15-2023 07-20-2024 Episodic Unclassified (2 sources) tubal consult Onset: 02-21-2024 Unclassified (1 source) Annual Exam Onset: 02-06-2024 Past or Other Problems Problem Classification Problem Date Documented Da te Episodic/Chronic Mood disorders (7 sources) Mood disorders Onset: 09-11-2021 Resolved: 02-06-2024 09-11-2021 Other lower respiratory disease (7 sources) Dyspnea; Translations: [Shortness of breath] Onset: 05-03-2019 05-03-2019 Episodic Other lower respiratory disease (1 source) Shortness of breath; Translations: [Shortness of breath] Onset: 05-03-2019 Episodic Unclassified (7 sources) Onset: 02-01-2023 Resolved: 02-06-2024 02-01-2023 Results Test Name Value Interpretation Reference Range Facility XR Foot - right 3 [facility] Result: 3 vi ews right foot: Weight-bearing: DP, oblique, lateral: 07/20/2024: Unremarkable for acute osseous or joint pathology. Unremarkable for fracture or stress fracture changes. [facility] Radiology Study observation (narrative) [facility] CT ABD/PELVIS WO CONon 02-13 CT ABD/PELVIS [...] by: ANDREINA DHILLON Date: 2023-02-13 21:36 Normal [facility] CT LSPINE WO CONon [address] [facility] WO CON CT LUMBAR SPINE WITH OUT CONTRAST, [...] by: Kalli RANGEL Date: 2023-02-13 20:09 Normal [facility] XR RIBS RT PA Marco Antonio 3 XR RIBS RT PA CH EXAM: XR RIBS RT PA CH HISTORY: Pain COMPARISON: Chest x-ray 02/18/2020 TECHNIQUE: 5 view study FINDINGS: Right ribs show normal architecture. The right lung is well expanded. No pneumothorax. IMPRESSION: No evidence for acute right rib fracture. Electronically authenticated by: Kalli RANGEL Date: 2023-02-13 20:26 Normal [facility] [id number] 01-05-2021 SARS-CoV-2,Rapid Not Detected Normal [facility] [...] management decisions. Fact sheet for Healthcare Providers: https://www.fda.gov/media/582686/download Fact sheet for Patients: https://www.fda.gov/media/631135/download Methodology: Isothermal Nucleic Acid Amplification Performed By: #### C OVRB #### [facility] [address] [place] [address] Mobility Engineer: Hussain Saldivar MD FLUORO FOR SURGICAL PROCEDUR ESon 12-22-2020 FLUORO FOR SURGICAL PROCEDURES Radiology exam is complete. No Radiologist dictation. Please follow up with ordering provider. Final result Normal [facility] Radiology exam is complete. No Radiologist dictation. Please follow up with ordering provider. [facility] Phone: HCG Screen, Bloodon 12-23-19 21 HCG Qn Negative Normal NEG [facility] Comment on above: Result [...] suggested. Performed By: #### H CG #### [facility] [address] [place], [place] [id number] Mobility Engineer: Darian Knutson MD HCG, SERUM, QUALITATIVEon hCG Qual Negative NEGATIVE [employer] Phone: Comment on above: Specimens with hCG [...] [Mass/Vol] 89 mg/dL 65 - 105 mg/dL [facility] Work Phone: Glucose [Mass/Vol] 99 mg/dL 65 - 105 mg/dL [employer] Phone: Operative Reporton Operative Report MR#: [id number] S [facility] Pt. Name: Nadir Hendrickson Room #: 0C Discharge Date: Birthdate: 1985 OPERATIVE REPORT DATE OF SURGERY: 10/09/2020 SURGEON: Tee Shahid M.D. PREOPERATIVE DIAGNOSIS: Triangular fibrocartilage complex tear, right wrist. POSTOPERATIVE DIAGNOSIS: Triangular fibrocartilage complex tear, right wrist. PROCEDURE: Arthroscopic examination and debridement of triangular fibrocartilage complex on the right wrist. BUSINESS STRATEGY MANAGER: Oracio Ibanez M.D. ANESTHESIA: Regional with [...] A/Tee Shahid M.D. Date Trans: 10/09/2020 11:19 A/dannieo [id number] cc: Ingrid Culver C.N.P. [address] [place] [address] Normal [facility] POC GLUCOSE LABon 10-09-2020 Glucose [Mass/Vol] 100 mg/dL Normal 70-100 [facility] Comment on above: Performed By: #### 8 [id number] #### [facility] [address] [place] [address], [facility] Glucose [Mass/Vol] 111 mg/dL High 70-100 [facility] Comment on above: Performed By: #### 8 [id number] #### [facility] [address] [place], [place] [address] Coding Summaryon 07-29-2020 Coding Summary CODING DATE: [facility] STATUS: Home PAYOR: Medicaid HMO ADMIT DX: REASON FOR VISIT DX: R45.851 Suicidal ideations FINAL DX: PRINCIPAL: F32.9 Major depressive disorder, single episode, unspecified SECONDARY: R45.851 Suicidal ideations E11.9 Type 2 diabetes mellitus without complications I10 Essential (primary) hypertension Z79.84 residential (current) use of oral hypoglycemic drugs PYMT PROC APC STAT DESCRIPTION DOCTOR NAME DATE NOTE: The code number assigned matches the documented diagnosis and / or procedure in the patient's chart. However, the narrative phrase printed from the coding software may appear abbreviated, or result in slightly different terminology. Coded By: Dante Villarreal' Date Saved: 07/29/2020 04:26 pm Normal [facility] Coding Summary CODING DATE: [facility] STATUS: Home PAYOR: Medicaid HMO ADMIT DX: REASON FOR VISIT DX: R45.851 Suicidal ideations FINAL DX: PRINCIPAL: F32.9 Major depressive disorder, single episode, unspecified SECONDARY: R45.851 Suicidal ideations E11.9 Type 2 diabetes mellitus without complications I10 Essential (primary) hypertension Z79.84 terminal makeup operator (current) use of oral hypoglycemic drugs PYMT PROC APC STAT DESCRIPTION DOCTOR NAME DATE NOTE: The code number assigned matches the documented diagnosis and / or procedure in the patient's chart. However, the narrative phrase printed from the coding software may appear abbreviated, or result in slightly different terminology. Coded By: Dante Villarreal' Date Saved: 07/29/2020 04:24 pm Normal [facility] .Auto Diff 1on 07-26-2020 Auto Bollinger % 7 % Normal -12 [facility] Comment on above: Performed By: #### 7 [id number], [id number], [id number], [id number], [id number], [id number], [id number], [id number] #### [facility] (DEFAULT) [address] [place] [address] Baso Abs# 0.0 x10 Normal 0.0-0.2 [facility] Comment on above: Performed By: #### 7 [id number], [id number], [id number], [id number], [id number], [id number], [id number], [id number] #### [facility] (DEFAULT) [address] [place] [address] Basophils/100 WBC (Bld) 0.3 % Normal 0.2-2.0 [facility] Comment on above: Performed By: #### 7 [id number], [id number], 0381064, [id number], [id number], [id number], [id number], [id number] #### [facility] (DEFAULT) [address] [place] [address] Eos Abs# 0.1 x10 Normal 0.0-0.4 [facility] Comment on above: Performed By: #### 7 [id number], 7986613, [id number], [id number], [id number], [id number], [id number], [id number] #### [facility] (DEFAULT) [address] [place] [address] Eosinophils/100 WBC (Bld) 1.7 % Normal 0.9-4.0 [facility] Comment on above: Performed By: #### 7 [id number], 3867322, 1628324, [id number], [id number], [id number], [id number], [id number] #### [facility] (DEFAULT) [address] [place] [address] Lymphocytes (Bld) [#/Vol] 2.0 x10 Normal 1.3-2.9 [facility] Comment on above: Performed By: #### 7 [id number], 3263464, 3614756, [id number], [id number], [id number], [id number], [id number] #### [facility] (DEFAULT) [address] [place] [address] 13436 Lymphocytes/100 WBC (Bld) 26 % Normal 14-48 [facility] Comment on above: Performed By: #### 7 [id number], 6753703, 7321191, 94498252, [id number], [id number], [id number], [id number] #### [facility] (DEFAULT) [address] [place] [address] Bollinger Abs# 0.5 x10 Normal 0.0-0.8 [facility] Comment on above: Performed By: #### 7 [id number], 5293352, 8423522, 67594412, [id number], [id number], [id number], [id number] #### [facility] (DEFAULT) [address] [place] [address] Neut Abs# 5.1 x10 Normal 1.5-9.2 [facility] Comment on above: Performed By: #### 7 [id number], 2318868, 7988096, 41451053, [id number], [id number], [id number], [id number] #### [facility] (DEFAULT) [address] [place] [address] Neutrophils/100 WBC (Bld) 65 % Normal 44-88 [facility] Comment on above: Performed By: #### 7 680328, 3541601, 9018098, 12373700, 8011849970, 4109059260, 583790275, [id number] #### [facility] (DEFAULT) [address] [place] [address] .QC Respiratory Panel 2.1 (B ioFire)on 07-26-2020 Internal Control-Resp Panel 2.1(BioFire) Pass Normal [facility] Comment on above: Order Comment: Order ed by Discern.[[id number]] Performed By: #### 6 [id number] ####[facility] (DEFAULT)[address] [place] [address] Acet Levelon 07-26-2020 Acetaminoph Lvl 11 mcg/mL Normal 08-01 [facility] Comment on above: Performed By: #### 7 311820, 3857727, 3055809, 34079784, 3372840066, 4148771645, 505449800, 4503920815 ####[facility] (DEFAULT)[address] [place] [address] CBC w/ Auto Diffon 0 Erythrocyte distribution width (RBC) [Ratio] 13.4 % Normal 11.5-15.0 [facility] Comment on above: Performed By: #### 7 821753, 9411119, 9161417, 46189603, 3426949350, 8961605905, 205523078, 8059307566 #### [facility] (DEFAULT) [address] [place] [address] Hematocrit (Bld) [Volume fraction] 38.0 % Normal 33.7-40.4 [facility] Comment on above: Performed By: #### 7 058827, 3084043, 6427313, 16861684, 6256098945, 6515820369, 870475659, 4777620922 #### [facility] (DEFAULT) [address] [place] [address] Hemoglobin (Bld) [Mass/Vol] 12.2 g/dL Normal 11.3-15.9 [facility] Comment on above: Performed By: #### 7 948237, 4740172, 7114701, 94427707, 3047028436, 6289747882, 891220268, 5398687818 #### [facility] (DEFAULT) [address] [place] [address] Man Diff? Auto Normal [facility] Comment on above: Performed By: #### 7 854184, 9757351, 9994038, 16358560, 1491139558, 1787732215, 117179358, 0140534027 #### [facility] (DEFAULT) [address] [place] [address] MCH (RBC) [Entitic mass] 27 pg Normal 24-34 [facility] Comment on above: Performed By: #### 7 052236, 8390632, 5702471, 67792279, 9703650224, 7951119373, 245608513, 2444969431 #### [facility] (DEFAULT) [address] [place] [address] MCHC (RBC) [Mass/Vol] 32 g/dL Normal 26-37 [facility] Comment on above: Performed By: #### 7 953137, 8011240, 1382837, 50339861, 3388484590, 5890120064, 152330076, 4372782637 #### [facility] (DEFAULT) [address] [place] [address] 00812 MCV (RBC) [Entitic vol] 84 fL Normal 81-100 [facility] Comment on above: Performed By: #### 7 435552, 6444585, 3575020, 96497013, 1480806397, 7273862531, 935890345, 3894164362 #### [facility] (DEFAULT) [address] [place] [address] 92362 Platelet mean volume (Bld) [Entitic vol] 9.7 fL Normal 6.3-10.2 [facility] Comment on above: Performed By: #### 7 204724, 0177980, 2024768, 90874439, 8049616085, 0450591788, 455097379, 3720641950 #### [facility] (DEFAULT) [address] [place] [address] 06394 Platelets (Bld) [#/Vol] 316 x10 Normal 138-427 [facility] Comment on above: Performed By: #### 7 000445, 5493705, 9811063, 03528921, 7704069317, 3415183165, 133467568, 0088711322 #### [facility] (DEFAULT) [address] [place] [address] 88011 RBC (Bld) [#/Vol] 4.51 x10 Normal 3.70-5.30 [facility] Comment on above: Performed By: #### 7 564020, 7057283, 6775563, 18461578, 2007670709, 7653988755, 046966699, 0392374535 #### [facility] (DEFAULT) [address] [place] [address] 96524 WBC (Bld) [#/Vol] 7.8 x10 Normal 3.5-10.5 [facility] Comment on above: Performed By: #### 7 350534, 7159081, 8523029, 11287729, 9998815425, 5484820838, 732476707, 6387018117 #### [facility] (DEFAULT) [address] [place] [address] Standard 07-26-2020 eGFR Non AA >60 [facility] Comment on above: Performed By: #### 7 167718, 3467985, 9101796, 72103280, 0705332251, 3495720454, 196941353, 5504717208 ####[facility] (DEFAULT)[address] [place] [address] eGFR AA >60 [facility] Comment on above: Result Comment: Shell Assembler carlo Kidney disease could be indicated at eGFRs of less than 60 ml/min/1.73m2. Kidney Failure is indicated at less than 15 ml/min/1.73m2 Performed By: #### 7 050368, 2045638, 5087212, 23984840, 4942466975, 3777829317, 308994895, 4435340545 ####[facility] (DEFAULT)[address] [place] [address] Albumin [Mass/Vol] 4.0 g/dL Normal 3.5-5.0 [facility] Comment on above: Performed By: #### 7 271733, 7144914, 7231413, 57317637, 1296623809, 1663224843, 757950388, 6812124059 ####[facility] (DEFAULT)[address] [place] [address] 89727 Albumin/Globulin [Mass ratio] 1.2 {ratio} Low 1.4-2.6 [facility] Comment on above: Performed By: #### 7 054984, 5763317, 4620694, 38444196, 9931387288, 7104658350, 728894687, 5130616056 ####[facility] (DEFAULT)[address] [place] [address] 19044 Alk Phos 69 IU/L Normal 32-91 [facility] Comment on above: Performed By: #### 7 619320, 4872233, 7952892, 44431218, 6621040831, 2823720767, 740263376, 8727464745 ####[facility] (DEFAULT)[address] [place] [address] ALT/SGPT 21.0 IU/L Normal 14.0-54.0 [facility] Comment on above: Performed By: #### 7 494828, 6460051, 4344929, 94538896, 4155279558, 8265705718, 834245196, 6133238894 ####[facility] (DEFAULT)[address] [place] [address] 01474 Anion gap [Moles/Vol] 13.0 mmol/L Normal 5.0-19.0 [facility] Comment on above: Performed By: #### 7 794060, 5445250, 1501146, 70985107, 7231801330, 4487646807, 660955013, 2947549153 ####[facility] (DEFAULT)[address] [place] [address] 37953 AST/SGOT 18 IU/L Normal 15-41 [facility] Comment on above: Performed By: #### 7 341980, 3757391, 5367796, 45674027, 0042289113, 9848042231, 953308640, 7788837361 ####[facility] (DEFAULT)[address] [place] [address] 99297 Bili Total 0.7 mg/dL Normal 0.3-1.2 [facility] Comment on above: Performed By: #### 7 776394, 1179209, 6895015, 23981911, 4888081848, 7684472415, 928537702, 6949463242 ####[facility] (DEFAULT)[address] [place] [address] 71958 Calcium [Mass/Vol] 9.1 mg/dL Normal 8.9-10.3 [facility] Comment on above: Performed By: #### 7 395346, 3480801, 4908315, 96804610, 8209894964, 6863858100, 491987412, 3894893065 ####[facility] (DEFAULT)[address] [place] [address] 11556 Chloride [Moles/Vol] 104 mmol/L Normal 101-111 [facility] Comment on above: Performed By: #### 7 752487, 9472863, 8919631, 65475239, 3863147299, 9142569351, 526835937, 2395858465 ####[facility] (DEFAULT)[address] [place] [address] 34085 CO2 [Moles/Vol] 25 mmol/L Normal 21-32 [facility] Comment on above: Performed By: #### 7 494091, 9398024, 7633964, 59338222, 8065810428, 4803399481, 708165156, 0621830380 ####[facility] (DEFAULT)[address] [place] [address] 33189 Creatinine [Mass/Vol] 0.56 mg/dL Low 0.60-1.30 [facility] Comment on above: Performed By: #### 7 779341, 5407727, 0616436, 26338821, 1576496368, 4953222434, 567616695, 4873042036 ####[facility] (DEFAULT)[address] [place] [address] 34369 Globulin (S) [Mass/Vol] 3.4 g/dL Normal 1.5-4.3 [facility] Comment on above: Performed By: #### 7 826468, 7617048, 4870759, 95962084, 5549442744, 4651699013, 358569398, 4083393445 ####[facility] (DEFAULT)[address] [place] [address] Glucose [Mass/Vol] 97.0 mg/dL Normal 74.0-118.0 [facility] Comment on above: Performed By: #### 7 690817, 8587263, 9098939, 16574253, 0339391629, 6929345645, 670413441, 8595743920 ####[facility] (DEFAULT)[address] [place] [address] 19104 Osmolality [Osmolality] 277 mOsm/L [facility] Comment on above: Performed By: #### 7 014975, 2419588, 5592968, 78194210, 0100139342, 8108913342, 308877035, 4171025199 ####[facility] (DEFAULT)[address] [place] [address] 29434 Potassium [Moles/Vol] 4.0 mmol/L Normal 3.6-5.1 [facility] Comment on above: Performed By: #### 7 094456, 5553059, 4724641, 71815055, 0015090329, 3938472091, 909341881, 3235478157 ####[facility] (DEFAULT)[address] [place] [address] 45363 Protein [Mass/Vol] 7.4 g/dL Normal 6.5-8.1 [facility] Comment on above: Performed By: #### 7 409913, 8576311, 9191135, 08319289, 2802865375, 7808780418, 997955759, 0844264917 ####[facility] (DEFAULT)[address] [place] [address] 99620 Sodium [Moles/Vol] 138.0 mmol/L Normal 136.0-144.0 [facility] Comment on above: Performed By: #### 7 591355, 8442033, 3500996, 59649701, 8958534494, 1380952764, 562853426, 8865636773 ####[facility] (DEFAULT)[address] [place] [address] 46844 Urea nitrogen [Mass/Vol] 16 mg/dL Normal 8-26 [facility] Comment on above: Performed By: #### 7 299372, 6837457, 9256082, 30703896, 8428123694, 2607537623, 965644722, 7643416965 ####[facility] (DEFAULT)[address] [place] [address] 66140 Urea nitrogen/Creatinine [Mass ratio] 29.0 mg/mg High 4.6-16.2 [facility] Comment on above: Performed By: #### 7 910757, 4630208, 6248638, 99341029, 2552751848, 2150701666, 561094143, 6805738015 ####[facility] (DEFAULT)[address] [place] [address] 36608 ED Clinical Summaryon 2019 ED Clinical Summary [facility] - Emergency Department [address] [place], [place] [id number] ED Clinical Summary PERSON INFORMATION Name: NAIDR HENDRICKSON Age: 34 Years Sex: FEMALE : 1985 MRN: Acct#: Visit Reason: Suicidal ideation; SUICIDAL IDEATION Arrival: 07/26/2020 14:20:47 Discharge: 07/26/2020 16:59:00 LOS: 000 02:39 Check In: 07/26/2020 14:20:47 Checkout:07/26/2020 16:59:00 Address: [address] [place] [address] PCP: Ingrid Culver NP PROVIDER INFORMATION Provider Role Assigned Unassigned Eduardo DURAN, Luis Enrique Mclean ED PA 07/26/2020 14:21:38 Ros KNIGHT, Breonna ED Nurse 07/26/2020 14:28:06 VITALS INFORMATION Vital Sign Triage Latest Temperature Tympanic Temperature Temporal Artery Pulse Rate O2 Sat 97 % 97 % Respiratory Rate Blood Pressure /88 mmHg /88 mmHg MEDICAL INFORMATION Medications Given: Allergy Information: Claritin; methylPREDNISolone PHYSICIAN DOCUMENTATION Patient: NADIR HENDRICKSON Age: 34 years Sex: FEMALE : 1985 Associated Diagnoses: Depression; Suicidal ideations Author: Eduardo DURAN, Luis Enrique Mclean Basic Information Time seen: Date & time [...] situation. Patient is currently living at the [facility] here in [place] which is a woman's alf type living. Patient states she has been living there for about 1 year. Patient states that she grew up in [place]. States she had 1 prior suicide attempt at the age of 9 or 10 years old. She states she did not feel she was wanted and friends states that she did not have a good home life and did not have the Corona nurturing that she deserved. Patient states that aside from her childhood living at the [facility], has been difficult. She states [...] states that her is also currently in [facility] and has 3 or 4 more years [...] a 15 yo daughter who lives in [place] with her grandmother. Patient states child was [...] 14:57:00, rate 85, Sinus rhythm Normal ECG MS interval 168, QRS duration 89, QT/QTc 337/379. [...] % Auto Lymph % 26 % Auto Bollinger % 7 % Auto Eos % 1.7 % Auto Baso % 0.3 % Neut Abs# 5.1 x103/mcL Lymph Abs# 2.0 x103/mcL Bollinger Abs# 0.5 x103/mcL Eos Abs# 0.1 x103/mcL Baso Abs# 0.0 x103/mcL Salicylate Lvl <4.0 mg/dL Acetaminoph Lvl 11 mcg/mL Tube Collected Yes Tube Collected Yes 07/26/2020 14:50 EDT Ethanol Level <5.0 mg/dL . Reexamination/ Reevaluation 15:03 I spoke with [facility] counseling hotline in regards to the pt. [...] 16:36 I spoke with Sarah counselor from [facility]. She spoke with her friend Melisa whom is willing to safety plan with the pt at [facility], Pt and Melisa are comfortable with this plan. [facility] also spoke with Zoie pts counselor from she says she plans [...] agrees and understands this plan of care. [facility] counselor Sarah and myself are agreeable to safety plan with patient's friend Melisa patient will be discharged home. Impression and Plan Diagnosis Depression (BDX76-DO F32.9, Discharge, Medical) Suicidal ideations (BNX48-KL R45.851, Discharge, Medical) Plan Condition: Stable. Disposition: [...] next week. You spoke with Sarah from [facility] behavioral health and counseling, at this time, [...] Help Yourself Follow-Up: With: Address: When: Ingrid Palomo [address] [facility], [address] [place] [id number] [facility] (1) Within 3 to 5 days Comments: Please follow-up with your counselor in 3 to 5 days. Your counselor Zoie should be contacting you tomorrow as well as a Tuesday to check in on you and speak with you. Please keep your follow-up appointment with her for Tuesday of next week. You spoke with Sarah from [facility] behavioral health and counseling, at this time, [...] r verbalizes understanding of instructions given Comment: [facility] ED Note - Henri[place]on 07-26-2020 ED Note - Other Called [facility] @ 6388 scotty laguna called back @ 9707, and spoke with MAYCOL Dudley, and also spoke with pt. [Electronically Signed on: 07/26/2020 16:37 EDT] Sola Sierra [Verified on: 07/26/2020 16:37 EDT] Sola Sierra [facility] ED Note - Physicianon 2019 ED Note - Physician Patient: NADIR HENDRICKSON Age: 34 years Sex: FEMALE : [...] situation. Patient is currently living at the [facility] here in [place] which is a woman's alf type living. Patient states she has been living there for about 1 year. Patient states that she grew up in [place]. States she had 1 prior suicide attempt at the age of 9 or 10 years old. She states she did not feel she was wanted and friends states that she did not have a good home life and did not have the Corona nurturing that she deserved. Patient states that aside from her childhood living at the [facility], has been difficult. She states [...] states that her is also currently in [facility] and has 3 or 4 more years [...] a 15 yo daughter who lives in [place] with her grandmother. Patient states child was [...] 14:57:00, rate 85, Sinus rhythm Normal ECG MS interval 168, QRS duration 89, QT/QTc 337/379. [...] % Auto Lymph % 26 % Auto Bollinger % 7 % Auto Eos % 1.7 % Auto Baso % 0.3 % Neut Abs# 5.1 x103/mcL Lymph Abs# 2.0 x103/mcL Bollinger Abs# 0.5 x103/mcL Eos Abs# 0.1 x103/mcL Baso Abs# 0.0 x103/mcL Salicylate Lvl <4.0 mg/dL Acetaminoph Lvl 11 mcg/mL Tube Collected Yes Tube Collected Yes 07/26/2020 14:50 EDT Ethanol Level <5.0 mg/dL . Reexamination/ Reevaluation 15:03 I spoke with [facility] counseling hotline in regards to the pt. [...] 16:36 I spoke with Sarah counselor from [facility]. She spoke with her friend Melisa whom is willing to safety plan with the pt at [facility], Pt and Melisa are comfortable with this plan. [facility] also spoke with Zoie, pts counselor from [...] agrees and understands this plan of care. [facility] counselor Sarah and myself are agreeable to safety plan with patient's friend Melisa patient will be discharged home. Impression and Plan Diagnosis Depression (NRH95-YB F32.9, Discharge, Medical) Suicidal ideations (LPK16-GP R45.851, Discharge, Medical) Plan Condition: Stable. Disposition: [...] next week. You spoke with Sarah from [facility] behavioral health and counseling, at this time, [...] 07/26/2020 16:46 EDT] Luis Enrique Clark PA-C [facility] ED Note-Nursingon 07-26-2020 ED Note-Nursing Pt arrives to ED and per caregiver states she wants to harm herself. Pt states she wishes she was not here and that she were . Pt states she has more stress right now but does not have any additional stressors than normal. [facility] ED Note-Nursing PT ARRIVED IN ED W/ VIDEO CONTROL ENGINEER AND CC OF SUICIDAL THOUGHTS BUT HAS NO PLAN IN PLACE TO HARM HERSELF. PT IS ALERT AND ORIENTED WHILE BEING VERY UNKEMPT. PT AMBULATED TO ED ROOM 4 W/O DIFFICULTY OF INCIDENT. Normal [facility] ED Patient Education Noteon 07-26-2020 ED Patient [...] urine clear or pale yellow. ? Take gxgs-orx-orbkkkj and prescription medicines only as told by [...] 03/15/2002 Document Revised: 09/01/2018 Document Reviewed: 11/09/2017 [employer] Patient Education ? 2019 [employer] Suicidal Feelings: How to Help Yourself [...] services (911 in the [place] ? [facility] helpl[facility] (211 in the [place] ? Go to your nearest emergency department. ? Call a suicide hotline to speak with a trained counselor. The following suicide hotlines are available in the [place]: ? 9-531-147-TALK ( ). ? 7-703-SYEAIRZ ( ). ? . This is a hotline for Lebanese speakers. ? . This is a hotline for TTY users. ? 2-314-5-U-FRED ( ). This is a hotline for [...] even if you do not feel sociable. Qooc-yy-ebtv conversation is best to help them understand [...] can help you feel better. ? Take cpij-nrq-jwbjylb and prescription medicines only as told by [...] Lifeline: www.suicidepreventionli feline.org ? Hopeline: www.hopeline.com ? [employer] for Suicide Prevention: www.afsp.org ? The [...] 03/25/2004 Document Revised: 01/10/2020 Document Reviewed: 05/02/2018 [employer] Patient Education ? 2019 [employer] Normal [facility] ED Patient Summaryon 020 ED Patient Summary [facility] - Emergency Department [address] [place] [address]52 PATIENT DISCHARGE INSTRUCTIONS Patient Information Name: NADIR HENDRICKSON Age: 34 Years Date of : 1985 Reason For Visit: Suicidal ideation; SUICIDAL IDEATION Arrival Time: 07/26/2020 14:20:47 Primary Care Physician: Ingrid Culver NP Attending Physician: John Krishnamurthy MD Comment: Visit Diagnosis: Diagnoses This Visit Depression (F32.9) Suicidal ideation ([id number]) Suicidal ideations (R45.851) Prescription Information: If you have been given a prescription for narcotics, seek immediate medical attention if you have any difficulty breathing or any sudden status changes such as confusion and sleepiness. If you or anyone you know is experiencing suicidal thoughts, mental health, alcohol and/or drug addiction problems; contact the [facility] 25/04 Crisis Hotline -Text 4HHDS to 050868. If you received any narcotics, sedation, or [...] legal documents With: Address: When: Ingrid Culver [address] [facility], [address] [place] [phone] Business (1) Within 3 to 5 days Comments: Please follow-up with your counselor in 3 to 5 days. Your counselor Zoie should be contacting you tomorrow as well as a Tuesday to check in on you and speak with you. Please keep your follow-up appointment with her for Tuesday of next week. You spoke with Sarah from [facility] behavioral health and counseling, at this time, [...] and treatment you received today in the [facility] Emergency Department were for an urgent problem and are not intended as complete care. It is important for you to follow up with a doctor, nurse practitioner, or physician?s inventory assistant for ongoing care. If your symptoms [...] so we can reach you if necessary. [facility] Emergency Department has provided you with a complete list of medications post discharge. Please inform your primary products inspectors/provider of your visit and for further instruction [...] urine clear or pale yellow. ? Take himt-eia-kcomgcx and prescription medicines only as told by [...] 03/15/2002 Document Revised: 09/01/2018 Document Reviewed: 11/09/2017 [employer] Patient Education ? 2019 [employer]. Suicidal Feelings: How to Help Yourself Suicide [...] services (911 in the [place].). ? [facility] and human services helpline (211 in the [place] ? Go to your nearest emergency department. ? Call a suicide hotline to speak with a trained counselor. The following suicide hotlines are available in the [place]: ? 8-779-186-TALK ( ). ? 4-782-TBWYERE ( ). ? . This is a hotline for Lebanese speakers. ? . This is a hotline for TTY users. ? 3-696-0-U-FRED ( ). This is a hotline for [...] list of crisis centers in [place], visit: suicideprevention.wv How to help yourself feel better ? [...] even if you do not feel sociable. Oxqa-be-auzh conversation is best to help them understand [...] can help you feel better. ? Take lwyg-lrb-ldjhhrj and prescription medicines only as told by [...] Lifeline: www.suicidepreventionli feline.org ? Hopeline: www.hopeline.com ? [employer] for Suicide Prevention: www.afsp.org ? The Fred Project (for lesbian, clayton, bisexual, transgender, or questioning youth): www.thePrimoris Energy Solutionsvorproject.or g Contact a health care provider if: [...] 03/25/2004 Document Revised: 01/10/2020 Document Reviewed: 05/02/2018 [employer] Patient Education ? 2019 [employer] Viruses or Bacteria What?s got you [...] Disease Control and Prevention June 2014 Normal [facility] Ethanol.on 07-26-2020 Ethanol Level <5.0 Normal 0.0-5.0 [facility] Comment on above: Performed By: #### 2 [id number] ####[facility] (DEFAULT)[address] [place] [address] 38042 Extra Redon 07-26-2020 Tube Collected Yes [facility] Comment on above: Performed By: #### 7 160137, 1611997, 0434032, 03136618, [id number], 0516927783, 807281923, [id number] #### [facility] (DEFAULT) [address] [place] [address] 15839 Pharmacy Noteon 07-26-2020 Pharmacy Note I have [...] Signed on: 07/26/2020 16:05 EDT] Brianna Hamilton Adan [Verified on: 07/26/2020 16:05 EDT] AlfonsoBrianna Adan Normal [facility] Respiratory Panel 2.1 (BioFi re)on 07-26-2020 Adenovirus -BioFire Not Detected Normal Not Detected [facility] Comment on above: Order Comment: Pt li ves at [facility], a women's home, required for psych admission Performed By: #### 6 [id number], [id number] ####[facility] (DEFAULT)[address] [place] [address] Bordetella parapertussis -BioFire Not Detected Normal Not Detected [facility] Comment on above: Order Comment: Pt li ves at [facility], a women's home, required for psych admission Performed By: #### 6 [id number], [id number] ####[facility] (DEFAULT)[address] [place] [address] 24766 Bordetella pertussis -BioFire Not Detected Normal Not Detected [facility] Comment on above: Order Comment: Pt li ves at [facility], a women's home, required for psych admission Performed By: #### 6 [id number], [id number] ####[facility] (DEFAULT)[address] [place] [address] Chlamydia pneumoniae -BioFire Not Detected Normal Not Detected [facility] Comment on above: Order Comment: Pt li ves at [facility], a [facility] home, required for psych admission Performed By: #### 6 [id number], [id number] ####[facility] (DEFAULT)[address] [place] [address] Coronavirus 229E (Not COVID-19) -BioFire Not Detected Normal Not Detected [facility] Comment on above: Order Comment: Pt li ves at [facility] a [facility], required for psych admission Performed By: #### 6 [id number], [id number] ####[facility] (DEFAULT)[address] [place] [address] Coronavirus HKU1 (Not COVID-19) -BioFire Not Detected Normal Not Detected [facility] Comment on above: Order Comment: Pt li ves at [facility] a [facility], required for psych admission Performed By: #### 6 [id number], [id number] ####[facility] (DEFAULT)[address] [place] [address] Coronavirus NL63 (Not COVID-19) -BioFire Not Detected Normal Not Detected [facility] Comment on above: Order Comment: Pt li ves at [facility] a [facility], required for psych admission Performed By: #### 6 [id number], [id number] ####[facility] (DEFAULT)[address] [place] [address] Coronavirus OC43 (Not COVID-19) -BioFire Not Detected Normal Not Detected [facility] Comment on above: Order Comment: Pt li ves at [facility] a [facility], required for psych admission Performed By: #### 6 [id number], [id number] ####[facility] (DEFAULT)[address] [place] [address] Employed in healthcare? No [facility] Comment on above: Order Comment: Pt li ves at [facility] a [facility], required for psych admission Performed By: #### 6 [id number], [id number] ####[facility] (DEFAULT)[address] [place] [address] Group care resident? Yes [facility] Comment on above: Order Comment: Pt li ves at [facility] a [facility], required for psych admission Performed By: #### 6 [id number], [id number] ####[facility] (DEFAULT)[address] [place] [address] Hospitalized due to COVID-19? No [facility] Comment on above: Order Comment: Pt li ves at [facility], a [facility], required for psych admission Performed By: #### 6 [id number], [id number] ####[facility] (DEFAULT)[address] [place] [address] Human Metapneumovirus -BioFire Not Detected Normal Not Detected [facility] Comment on above: Order Comment: Pt li ves at [facility] a [facility], required for psych admission Performed By: #### 6 [id number], [id number] ####[facility] (DEFAULT)[address] [place] [address] Human Rhinovirus/Enterovir us -BioFire Not Detected Normal Not Detected [facility] Comment on above: Order Comment: Pt li ves at [facility] a [facility], required for psych admission Performed By: #### 6 [id number], [id number] ####[facility] (DEFAULT)[address] [place] [address] In ICU? No [facility] Comment on above: Order Comment: Pt li ves at [facility] a [facility], required for psych admission Performed By: #### 6 [id number], [id number] ####[facility] (DEFAULT)[address] [place] [address] Influenza A (no subtype) -BioFire Not Detected Normal Not Detected [facility] Comment on above: Order Comment: Pt li ves at [facility] a [facility], required for psych admission Performed By: #### 6 [id number], [id number] ####[facility] (DEFAULT)[address] [place] [address] Influenza A -BioFire Not Detected Normal Not Detected [facility] Comment on above: Order Comment: Pt li ves at [facility] a [facility], required for psych admission Performed By: #### 6 [id number], [id number] ####[facility] (DEFAULT)[address] [place] [address] Influenza A H1 -BioFire Not Detected Normal Not Detected [facility] Comment on above: Order Comment: Pt li ves at [facility] a [facility], required for psych admission Performed By: #### 6 [id number], [id number] ####[facility] (DEFAULT)[address] [place] [address] Influenza A H1-2009 -BioFire Not Detected Normal Not Detected [facility] Comment on above: Order Comment: Pt li ves at [facility] a [facility], required for psych admission Performed By: #### 6 [id number], [id number] ####[facility] (DEFAULT)[address] [place] [address] Influenza A H3 -BioFire Not Detected Normal Not Detected [facility] Comment on above: Order Comment: Pt li ves at [facility], a women[facility], required for psych admission Performed By: #### 6 [id number], [id number] ####[facility] (DEFAULT)[address] [place] [address] 10661 Influenza B -BioFire Not Detected Normal Not Detected [facility] Comment on above: Order Comment: Pt li ves at [facility], required for psych admission Performed By: #### 6 [id number], [id number] ####[facility] (DEFAULT)[address] [place] [address]97 Mycoplasma pneumoniae -BioFire Not Detected Normal Not Detected [facility] Comment on above: Order Comment: Pt li ves at [facility], required for psych admission Performed By: #### 6 [id number], [id number] ####[facility] (DEFAULT)[address] [place] [address] Parainfluenza Virus 1 -BioFire Not Detected Normal Not Detected [facility] Comment on above: Order Comment: Pt li ves at [facility], required for psych admission Performed By: #### 6 [id number], [id number] ####[facility] (DEFAULT)[address] [place] [address]13 Parainfluenza Virus 2 -BioFire Not Detected Normal Not Detected [facility] Comment on above: Order Comment: Pt li ves at [facility], required for psych admission Performed By: #### 6 [id number], [id number] ####[facility] (DEFAULT)[address] [place] [address] Parainfluenza Virus 3 -BioFire Not Detected Normal Not Detected [facility] Comment on above: Order Comment: Pt li ves at [facility], required for psych admission Performed By: #### 6 [id number], [id number] ####[facility] (DEFAULT)[address] [place] [address] Parainfluenza Virus 4 -BioFire Not Detected Normal Not Detected [facility] Comment on above: Order Comment: Pt li ves at [facility], required for psych admission Performed By: #### 6 [id number], [id number] ####[facility] (DEFAULT)[address] [place] [address]97 status? Not [facility] Comment on above: Order Comment: Pt li ves at [facility], required for psych admission Performed By: #### 6 [id number], [id number] ####[facility] (DEFAULT)[address] [place] [address]327 Respiratory Syncytial Virus -BioFire Not Detected Normal Not Detected [facility] Comment on above: Order Comment: Pt li ves at [facility], required for psych admission Performed By: #### 6 [id number], [id number] ####[facility] (DEFAULT)[address] [place] [address] SARS-CoV-2 (COVID-19) -BioFire Not Detected Normal Not Detected [facility] Comment on above: Order Comment: Pt li ves at [facility], required for psych admission Performed By: #### 6 [id number], [id number] ####[facility] (DEFAULT)[address] [place] [address]41 Symptomatic as defined by CDC? No [facility] Comment on above: Order Comment: Pt keseha bran at [facility], required for psych admission Performed By: #### 6 [id number], [id number] ####[facility] (DEFAULT)[address] [place] [address] Salicylateon 07-26-2020 Salicylate Lvl <4.0 Normal 0.0-30.0 [facility] Comment on above: Result Comment: Sali cylate ranges less than 30 mg/dL are considered to be therapeutic. Levels greater than 30 mg/dL are considered toxic and levels greater than 60 mg/dL may be lethal. Performed By: #### 7 [id number], [id number], [id number], [id number], [id number], [id number], [id number] ####[facility] (DEFAULT)[address] [place] [address]32 Thyroid Panel 4on 07-26-2020 T3 Uptake. 48 % Normal 32-48 [facility] Comment on above: Performed By: #### 7 [id number], [id number], [id number], [id number], [id number], [id number], [id number] ####[facility] (DEFAULT)[address] [place] [address]6747 T4 [Mass/Vol] 9.41 ug/dL Normal 6.09-12.23 [facility] Comment on above: Performed By: #### 7 [id number], [id number], [id number], [id number], [id number], [id number], [id number], [id number] ####[facility] (DEFAULT)[address] [place] [address]11 T7 4.52 Normal 1.94-5.91 [facility] Comment on above: Performed By: #### 7 [id number], [id number], 8530723, [id number], [id number], [id number], [id number], [id number] ####[facility] (DEFAULT)[address] [place] [address]01 TSH Qn 1.49 mcIU/mL Normal 0.45-5.33 [facility] Comment on above: Result Comment: Gene ral Population (males and non- females, aged 21-88) 0.45 - 5.33 Females, 1st Trimester 0.05 - 3.70 Females, 2nd Trimester 0.31 - 4.35 Females, 3rd Trimester 0.41 - 5.18 Performed By: #### 7 [id number], 1144809, 7167355, [id number], [id number], [id number], [id number], [id number] ####[facility] (DEFAULT)[address] [place] [address]24 Coding Summary.on 07-07-2020 Coding Summary. CODING DATE: 020 FINAL [facility] STATUS: Home (Routine DC) PAYOR: Medicaid EA DESCRIPTION 0293 MRI- JOINTS 0490 INCIDENTAL TO [...] CphT Date Saved: 07/07/2020 02:39 pm Normal [facility] Consent for Treatmenton Consent for Treatment [id number]#1.00C D:127 Normal [facility] MRI Wrist Arthrogram Righton 07-04-2020 MRI Wrist [...] MultiHance Contrast amount in ml's: 1 Normal [facility] RAD - Consent to Procedureon 07-04-2020 RAD - Consent to Procedure [id number]#1.00 CD:127 Normal [facility] RAD - MRI Screening Formon 1 RAD - MRI Screening Form [id number]#1.00C D:127 Normal [facility] XR Inj Wrist Arthrogram Righ ton 07-04-2020 [...] Radiation Dose: Ka,r in mGy = 0.7 [facility] Medication Managementon 06-04 Medication Management [id number]#1.00O [facility] Physical Therapy Noteon 06-04 Physical Therapy Note [id number]#1.00O [facility] Physician Orderon 06-20-2020 Physician Order [id number]#1.00 CD:127 [facility] Coding Summaryon 05-01-2020 Coding Summary CODING DATE: 020 [facility] STATUS: PAYOR: Medicaid HMO ADMIT DX: [...] Alpa Norman Date Saved: 05/01/2020 11:46 am [facility] Provider Orderson 05-01-2020 Provider Orders [id number]#1.00O TGTIFF [facility] Coding Summaryon 04-16-2020 Coding Summary CODING DATE: 020 [facility] STATUS: Home PAYOR: Medicaid HMO ADMIT [...] Alpa Norman Date Saved: 04/16/2020 02:37 pm [facility] Lab - Immunology/Serology Re sultson 03-31-2020 Lab - Immunology/Serology Results [id number]#1.00OT GTIFF [facility] POCT urine pregnancyon 03-31 Beta HCG ( test) Ql (U) Negative NEGATIVE [place], [place] Comment on above: Specimens with hCG l evels near the threshold of the test (25 mIU/mL) may give a negative or indeterminate result. In such cases, another test should be performed with a new specimen in 48-72 hours. If early is suspected clinically in this setting, correlation with quantitative serum b-hCG level is suggested. ED Note-Nursingon 03-28-2020 ED Note-Nursing Spoke with Abhishek sun and he states he faxed the results of fthis Coivid testing to the number on the order. [facility] Provider Orderson 03-28-2020 Provider Orders [id number]#1.00O TGTIFF [facility] SARS-CoV-2 (COVID-19) PCRon 03-28-2020 COVID-19 PCR Not Detected Normal Not Detected [facility] Comment on above: Order Comment: Sent to [facility] Performed By: #### 6 [id number] ####[facility] (DEFAULT)[address] [place] [address] Coding Summaryon 02-20-2020 Coding Summary CODING DATE: 020 [facility] STATUS: Home PAYOR: Medicaid HMO ADMIT [...] Alpa Norman Date Saved: 02/20/2020 11:22 am [facility] Consent Formson 02-19-2020 Consent Forms [id number] [facility] Medication Managementon 01-31 Medication Management [id number]#1.00O [facility] ED Clinical Summaryon 2019 ED Clinical Summary [facility] ? Urgent Care [address] [place] [address] Clinical Summary PERSON INFORMATION Name: NADIR HENDRICKSON Age: 34 Years Sex: FEMALE : 1985 MRN: Acct#: Visit Reason: Back pain; Foot pain-swelling; FALL, RIGHT WRIST PAIN, RIGHT FOOT PAIN, BACK PAIN Arrival: 02/18/2020 12:47:00 Discharge: 02/18/2020 14:46:00 LOS: 000 01:59 Check In: 02/18/2020 12:47:00 Checkout: 02/18/2020 14:46:00 Address: [address] [place] [address] PCP: Provider, None PROVIDER INFORMATION Provider Role Assigned Unassigned Jack KNIGHT, Suze ED Nurse 02/18/2020 12:55:51 Charlie Romero-Gilles ED PA 02/18/2020 12:57:26 VITALS INFORMATION Vital Sign Triage Latest Temperature Tympanic Temperature Temporal Artery Pulse Rate O2 Sat Respiratory Rate Blood Pressure /88 mmHg /88 mmHg MEDICAL INFORMATION Medications Given: Allergy Information: Claritin; methylPREDNISolone PHYSICIAN DOCUMENTATION DISCHARGE INFORMATION: Discharge Disposition: Home Discharge Location: Home PATIENT EDUCATION INFORMATION Instructions: Wrist Fracture Treated With Immobilization; Thoracic Strain, Eqju-wh-Efzk; Wrist Sprain, Adult; Foot Sprain Follow-Up: With: Address: When: Rafita Watson [address] [facility] [address] [place] ([employer]) Within 1 to 2 days With: Address: When: Follow up with primary care provider Within 2 to 4 days DIAGNOSIS: Right foot sprain; Sprain of right wrist; Strain of thoracic spine Patient Understands: Yes - Patient/family/caregive r verbalizes understanding of instructions given Comment: Normal [facility] ED Patient Summaryon 020 ED Patient Summary [facility] ? Urgent Care [address] [place] [address] PATIENT DISCHARGE INSTRUCTIONS Patient Information Name: NADIR HENDRICKSON Age: 34 Years Date of : 1985 Reason For Visit: Back pain; Foot pain-swelling; FALL, RIGHT WRIST PAIN, RIGHT FOOT PAIN, BACK PAIN Arrival Time: 02/18/2020 12:47:00 Primary Care Physician: Provider, None Attending Physician: Esteban Barry Comment: Patient Education With: Address: When: Rafita Watson [address] [employer] [address] [employer] ([employer]) Within 1 to 2 days With: Address: [...] is stable enough for you to begin ijaop-kc-tfhayz exercises. You may also be prescribed pain [...] your health care provider approves. ? Do rcwqj-ym-zuprsb exercises only as told by your health care provider or physical therapist. General instructions ? Do not put pressure on any part of the cast or splint until it is fully hardened. This may take several hours. ? Take bhvg-ppa-xnnkiub and prescription medicines only as told by [...] keep your urine pale yellow. ? Take znsw-qpt-kdtkxeq or prescription medicines. ? Eat foods that [...] 06/29/2006 Document Revised: 02/20/2019 Document Reviewed: 02/20/2019 [employer] Patient Education ? 2019 [employer] Thoracic Strain Thoracic strain is an [...] minutes, 2?3 times per day. ? Take uffv-hay-upazkri and prescription medicines only as told by [...] 03/07/2009 Document Revised: 05/21/2017 Document Reviewed: 11/13/2015 [employer] Patient Education ? 2019 [employer] Wrist Sprain, Adult A wrist sprain [...] health care provider. General instructions ? Take eedz-hvm-cahrlor and prescription medicines only as told by [...] 05/23/2015 Document Revised: 04/16/2017 Document Reviewed: 04/07/2017 [employer] Patient Education ? 2019 [employer]. Foot Sprain A foot sprain is an [...] This may take several hours. ? Take kevx-srs-qkowgjx and prescription medicines only as told by [...] 03/11/2003 Document Revised: 09/23/2018 Document Reviewed: 09/23/2018 [employer] Patient Education ? 2019 [employer] Medication Information: The exam and treatment you received today in the [facility] Emergency Department were for an urgent problem and are not intended as complete care. It is important for you to follow up with a doctor, nurse practitioner, or physician?s inventory assistant for ongoing care. If your symptoms [...] so we can reach you if necessary. [facility] Emergency Department has provided you with a complete list of medications post discharge. Please inform your primary products inspectors/provider of your visit and for further instruction on these medications. Any specific questions regarding your chronic medications and dosages should be discussed with your primary care physician(s) and/or pharmacist. New Medications [facility], [address] [place], [place] [id number], [phone] ibuprofen (ibuprofen 600 mg oral tablet) 1 [...] Visit Diagnosis: Diagnoses This Visit Back pain ([id number]) Foot pain-swelling ([id number]) Right foot sprain (S93.601A) Sprain of right [...] for Disease Control and Prevention June 2014 [facility] Patient Handouton 02-18-2020 Patient Handout Patient [...] is stable enough for you to begin ugbys-hj-uffygg exercises. You may also be prescribed pain [...] your health care provider approves. ? Do bdmgy-lg-wmgueo exercises only as told by your health care provider or physical therapist. General instructions ? Do not put pressure on any part of the cast or splint until it is fully hardened. This may take several hours. ? Take whgo-cpe-hfghimm and prescription medicines only as told by [...] keep your urine pale yellow. ? Take fikn-tjl-qerhuun or prescription medicines. ? Eat foods that [...] 06/29/2006 Document Revised: 02/20/2019 Document Reviewed: 02/20/2019 [employer] Patient Education ? 2019 [employer] Thoracic Strain Thoracic strain is an [...] minutes, 2?3 times per day. ? Take pfie-dlw-uqjmxwl and prescription medicines only as told by [...] 03/07/2009 Document Revised: 05/21/2017 Document Reviewed: 11/13/2015 [employer] Patient Education ? 2019 [employer] Wrist Sprain, Adult A wrist sprain [...] health care provider. General instructions ? Take yanf-wfc-tducgcv and prescription medicines only as told by [...] 05/23/2015 Document Revised: 04/16/2017 Document Reviewed: 04/07/2017 [employer] Patient Education ? 2019 [employer]. Foot Sprain A foot sprain is an [...] This may take several hours. ? Take xaqd-ftq-fbamkat and prescription medicines only as told by [...] 03/11/2003 Document Revised: 09/23/2018 Document Reviewed: 09/23/2018 [employer] Patient Education ? 2019 [employer]. [facility] Urgent Care Note- Provideron 02-18-2020 Urgent Care Note- Provider Patient: NADIR HENDRICKSON Age: 34 years Sex: FEMALE : [...] dislocation. Follow-up as needed. ? Signed By: Dirk BOWMAN, Jean Carlos Mancilla ? XR Wrist Complete Right ? 02/18/20 [...] Impression and Plan Diagnosis Right foot sprain (ONP27-IB S93.601A, Discharge, Medical) Sprain of right wrist (XWO52-MJ S63.501A, Discharge, Medical) Strain of thoracic spine (UZH37-QO S29.012A, Discharge, Medical) Possible left navicular fracture Plan Condition: Stable. Disposition: Discharged: Time 02/18/2020 14:20:00, to home. Prescriptions: [facility] Pharmacy: ibuprofen 600 mg oral tablet (Prescribe): 600 mg = 1 tab(s), PO, q8hr, for 10 day(s), PRN: as needed for pain, 30 tab(s), 0 Refill(s). Patient was given the following educational materials: Foot Sprain, Wrist Sprain, Adult, Thoracic Strain, Zqwl-rq-Kpek, Wrist Fracture Treated With Immobilization, Wrist Fracture Treated With Immobilization, Thoracic Strain, Yoyp-eu-Ulff, Wrist Sprain, Adult, Foot Sprain. Follow up with: ; Follow up with primary care provider Within 2 to 4 days; Rafita Watson Within 1 to 2 days. Counseled: Patient, Regarding diagnosis, Regarding diagnostic results, Regarding treatment plan, Regarding prescription, Patient indicated understanding of instructions. Normal [facility] Urgent Care [place] 020 Urgent Care Record [facility] ? Urgent Care [address] [id number] PATIENT DISCHARGE INSTRUCTIONS Patient Information Name: NADIR HENDRICKSON Age: 34 Years Date of : 1985 Reason For Visit: Back pain; Foot pain-swelling; FALL, RIGHT WRIST PAIN, RIGHT FOOT PAIN, BACK PAIN Arrival Time: 02/18/2020 12:47:00 Primary Care Physician: Provider, None Attending Physician: Esteban Barry Comment: Visit Diagnosis: Diagnoses This Visit Back pain ([id number]) Foot pain-swelling ([id number]) Right foot sprain (S93.601A) Sprain of right [...] legal documents With: Address: When: Rafita Watson [address] [place], [place] [id number] [facility] (1) Within 1 to 2 days With: Address: When: Follow up with primary care provider Within 2 to 4 days Medication Information: The exam and treatment you received today in the [facility] were for an urgent problem and are not intended as complete care. It is important for you to follow up with a doctor, nurse practitioner, or physician?s inventory assistant for ongoing care. If your symptoms [...] so we can reach you if necessary. [facility] has provided you with a complete list of medications post discharge. Please inform your primary products inspectors/provider of your visit and for further instruction on these medications. Any specific questions regarding your chronic medications and dosages should be discussed with your primary care physician(s) and/or pharmacist. New Medications [facility] [facility] [address] [place], [place] [id number], [phone] ibuprofen (ibuprofen 600 mg oral tablet) 1 [...] is stable enough for you to begin xxytv-mt-nsrdlz exercises. You may also be prescribed pain [...] your health care provider approves. ? Do vwhlb-ny-ntzczv exercises only as told by your health care provider or physical therapist. General instructions ? Do not put pressure on any part of the cast or splint until it is fully hardened. This may take several hours. ? Take exdz-olm-qopggfs and prescription medicines only as told by [...] keep your urine pale yellow. ? Take mwhd-nlc-wspmrdc or prescription medicines. ? Eat foods that [...] 06/29/2006 Document Revised: 02/20/2019 Document Reviewed: 02/20/2019 [employer] Patient Education ? 2019 [employer]. Thoracic Strain Thoracic strain is an injury [...] minutes, 2?3 times per day. ? Take uppm-xxd-hogcpnf and prescription medicines only as told by [...] 03/07/2009 Document Revised: 05/21/2017 Document Reviewed: 11/13/2015 [employer] Patient Education ? 2019 [employer] Wrist Sprain, Adult A wrist sprain [...] health care provider. General instructions ? Take quvp-zna-ftvohux and prescription medicines only as told by [...] 05/23/2015 Document Revised: 04/16/2017 Document Reviewed: 04/07/2017 [employer] Patient Education ? 2019 [employer]. Foot Sprain A foot sprain is an [...] This may take several hours. ? Take hkmq-eej-yrdxipc and prescription medicines only as told by [...] 03/11/2003 Document Revised: 09/23/2018 Document Reviewed: 09/23/2018 [employer] Patient Education ? 2019 [employer] Viruses or Bacteria What?s got you [...] for Disease Control and Prevention June 2014 [facility] XR Foot Complete Righton XR Foot [...] Carlos Cavazos MD 02/18/20 2:16 pm Technologist: SLM,E [facility] XR Spine Thoracic 3 Viewson 02-18-2020 [...] MD 02/18/20 2:16 pm Technologist: Gabriel EVERETT [facility] XR Wrist Complete Righton XR Wrist [...] MD 02/18/20 2:16 pm Technologist: Gabriel EVERETT [facility] Coding Summaryon 10-05-2019 Coding Summary CODING DATE: [facility] STATUS: Home PAYOR: Medicaid O ADMIT DX: REASON FOR VISIT DX: R05 [...] Dante Villarreal' Date Saved: 10/05/2019 01:09 pm [facility] Coding Summary CODING DATE: [facility] STATUS: Home PAYOR: Medicaid HMO ADMIT [...] Tammy Villarreal Date Saved: 10/05/2019 01:08 pm Normal [facility] ED Clinical Summaryon 2018 ED Clinical Summary [facility] - Emergency Department [address] [place] [address] ED Clinical Summary PERSON INFORMATION Name: NADIR HENDRICKSON Age: 33 Years Sex: FEMALE : 1985 MRN: Acct#: Visit Reason: Wheezing; Cough; DIFFICULTY BREATHING Arrival: 10/02/2019 20:04:01 Discharge: 10/02/2019 21:52:00 LOS: 000 01:48 Check In: 10/02/2019 20:04:01 Checkout:10/02/2019 21:52:00 Address: [address] [place] [address] PCP: Provider, None PROVIDER INFORMATION Provider Role [...] Allergy Information: Claritin; methylPREDNISolone PHYSICIAN DOCUMENTATION Patient: NADIR HENDRICKSON Age: 33 years Sex: FEMALE : [...] room.. Impression and Plan Diagnosis Asthma exacerbation ([id number]-ST J45.901, Discharge, Medical) Plan Condition: Improved, Stable. Disposition: Discharged: to home. Patient was given the following educational materials: Asthma, Adult, Pqqv-lh-Jrbc, Asthma, Adult, Swma-ff-Azrq. Follow up with: None Provider Within 3 to 5 days. Counseled: Patient, Regarding diagnosis, Regarding treatment plan, Patient indicated understanding of instructions. DISCHARGE INFORMATION: Discharge Disposition: Home Discharge Location: Home PATIENT EDUCATION INFORMATION Instructions: Asthma, Adult, Accp-su-Ojez Follow-Up: With: Address: When: None Provider Within 3 to 5 days DIAGNOSIS: Asthma exacerbation Patient Understands: Yes - Patient/family/caregive r verbalizes understanding of instructions given Comment: [facility] ED Note - Physicianon 2018 ED Note - Physician Patient: NADIR HENDRICKSON Age: 33 years Sex: FEMALE : [...] room.. Impression and Plan Diagnosis Asthma exacerbation ([id number] J45.901, Discharge, Medical) Plan Condition: Improved, Stable. Disposition: Discharged: to home. Patient was given the following educational materials: Asthma, Adult, Lerb-vo-Muny, Asthma, Adult, Rlit-ku-Tzld. Follow up with: None Provider Within 3 to 5 days. Counseled: Patient, Regarding diagnosis, Regarding treatment plan, Patient indicated understanding of instructions. [Electronically Signed on: 10/02/2019 21:30 EST] Macho Smith MD [Verified on: 10/02/2019 21:30 EST] Macho Smith MD [facility] ED Patient Education Noteon 10-02-2019 ED [...] pollute the air. These may include household database security administrator, wood smoke, smog, or chemical odors. ? [...] you are not home. Use a vacuum condenser cleaner with a HEPA filter if possible. [...] and water are not available, use hand demolitionist. ? Do not allow anyone to smoke in your home. General instructions ? Take lhvj-nmz-szopadm and prescription medicines only as told by [...] 03/07/2009 Document Revised: 10/24/2017 Document Reviewed: 10/24/2017 [employer] Patient Education ? 2019 [employer] Normal [facility] ED Patient Summaryon 019 ED Patient Summary [facility] - Emergency Department [address] [place] [address] PATIENT DISCHARGE INSTRUCTIONS Patient Information Name: NADIR HENDRICKSON Age: 33 Years Date of : 1985 Reason For Visit: Wheezing; Cough; DIFFICULTY BREATHING Arrival Time: 10/02/2019 20:04:01 Primary Care Physician: Provider, None Attending Physician: Macho Smith MD Comment: Visit Diagnosis: Diagnoses This Visit Asthma exacerbation (J45.901) Cough ([id number]) Wheezing ([id number]) Prescription Information: If you have been given a prescription for narcotics, seek immediate medical attention if you have any difficulty breathing or any sudden status changes such as confusion and sleepiness. If you or anyone you know is experiencing suicidal thoughts, mental health, alcohol and/or drug addiction problems; contact the [facility] 25/04 Crisis Hotline -text 4HNTK to 190837. If you received any narcotics, sedation, or [...] and treatment you received today in the [facility] Emergency Department were for an urgent problem and are not intended as complete care. It is important for you to follow up with a doctor, nurse practitioner, or physician?s inventory assistant for ongoing care. If your symptoms [...] so we can reach you if necessary. [facility] Emergency Department has provided you with a complete list of medications post discharge. Please inform your primary products inspectors/provider of your visit and for further instruction [...] pollute the air. These may include household database security administrator, wood smoke, smog, or chemical odors. ? [...] you are not home. Use a vacuum condenser cleaner with a HEPA filter if possible. [...] and water are not available, use hand demolitionist. ? Do not allow anyone to smoke in your home. General instructions ? Take iprk-xwb-hmewodd and prescription medicines only as told by [...] 03/07/2009 Document Revised: 10/24/2017 Document Reviewed: 10/24/2017 [employer] Patient Education ? 2019 [employer] Viruses or Bacteria What?s got you [...] for Disease Control and Prevention June 2014 [facility] C Throaton 09-06-2019 C Throat Ordered by Discern. Normal throat ldea isolated No pathogens isolated [facility] Comment on above: Performed By: #### [id number] ####[facility] (DEFAULT)[address] [place] [address] Coding Summaryon 09-06-2019 Coding Summary CODING DATE: [facility] STATUS: Home PAYOR: Medicaid HMO ADMIT [...] Tammy Villarreal Date Saved: 09/06/2019 03:18 pm [facility] Coding Summary CODING DATE: [facility] STATUS: Home PAYOR: Medicaid HMO ADMIT [...] Tammy Villarreal Date Saved: 09/06/2019 03:17 pm [facility] ED Clinical Summaryon 2018 ED Clinical Summary [facility] - Emergency Department [address] [place] [address] ED Clinical Summary PERSON INFORMATION Name: NADIR HENDRICKSON Age: 33 Years Sex: FEMALE : 1985 MRN: Acct#: Visit Reason: Throat pain - Adult; SORE THROAT, BIALTERAL EAR PAIN Arrival: 09/04/2019 11:12:00 Discharge: 09/04/2019 12:07:00 LOS: 000 00:55 Check In: 09/04/2019 11:12:00 Checkout:09/04/2019 12:07:00 Address: [address] [place], [place] [id number] PCP: Provider, None PROVIDER INFORMATION Provider Role Assigned Unassigned Luis Enrique Clark PA-C ED PA 09/04/2019 11:13:06 Luna Tran SCALP TREATMENT OPERATOR Nurse 09/04/2019 11:31:06 VITALS INFORMATION Vital [...] left. This may be further evaluated by senior nuclear medicine technologist in which you are given information to follow-up with Dr. Evans. Continue Tylenol ibuprofen or Chloraseptic Roosevelt for discomfort. Continue fluids rest. You may return here to the emergency department develop any fever, chills or any other worsening or concerning symptoms. With: Address: When: Tobi Evans [address] [place], [place] [id number] Business (1) Within 3 to 5 days DIAGNOSIS: Tonsil stone; Viral pharyngitis Patient Understands: Yes - Patient/family/caregive r verbalizes understanding of instructions given Comment: [facility] ED Note - Physicianon 2018 ED Note - Physician Patient: NADIR HENDRICKSON Age: 33 years Sex: FEMALE : 1985 Associated Diagnoses: Tonsil stone; Viral pharyngitis Author: Eduardo DURAN, Luis Enrique Mclean Basic Information Time seen: Date & time [...] care. Impression and Plan Diagnosis Tonsil stone (LQE00-KW J35.8, Discharge, Medical) Viral pharyngitis (GQD44-KZ J02.9, Discharge, Medical) Plan Condition: Stable. Disposition: [...] left. This may be further evaluated by senior nuclear medicine technologist in which you are given information to follow-up with Dr. Evans. Continue Tylenol ibuprofen or Chloraseptic Roosevelt for discomfort. Continue fluids rest. You may return here to the emergency department develop any fever, chills or any other worsening or concerning symptoms.. Counseled: Patient, Regarding diagnosis, Regarding diagnostic results, Regarding treatment plan, Patient indicated understanding of instructions. [Electronically Signed on: 09/04/2019 12:15 EST] Luis Enrique Clark PA-C [Verified on: 09/04/2019 12:15 EST] Luis Enrique Clark PA-C [facility] ED Patient Education Noteon 09-04-2019 ED [...] Follow these instructions at home: ? Take poox-tsy-sxviqfb medicines only as told by your health [...] 10/27/2005 Document Revised: 05/15/2017 Document Reviewed: 07/09/2016 [employer] Patient Education ? 2019 [employer] Pharyngitis Pharyngitis is redness, pain, and [...] Follow these instructions at home: ? Take kogz-pwh-qozugix and prescription medicines only as told by [...] 09/19/2006 Document Revised: 10/25/2017 Document Reviewed: 10/25/2017 [employer] Patient Education ? 2019 [employer]. [facility] ED Patient Summaryon 019 ED Patient Summary [facility] - Emergency Department [address] [place] [address] PATIENT DISCHARGE INSTRUCTIONS Patient Information Name: NADIR HENDRICKSON Age: 33 Years Date of : 1985 Reason For Visit: Throat pain - Adult; SORE THROAT, BIALTERAL EAR PAIN Arrival Time: 09/04/2019 11:12:00 Primary Care Physician: Provider, None Attending Physician: John Krishnamurthy MD Comment: Visit Diagnosis: Diagnoses This Visit Throat pain - Adult ([id number]) Tonsil stone (J35.8) Viral pharyngitis (J02.9) Prescription Information: If you have been given a prescription for narcotics, seek immediate medical attention if you have any difficulty breathing or any sudden status changes such as confusion and sleepiness. If you or anyone you know is experiencing suicidal thoughts, mental health, alcohol and/or drug addiction problems; contact the [facility] 25/04 Crisis Hotline -Text 9KRSD xr [phone]. If you received any narcotics, sedation, or [...] left. This may be further evaluated by senior nuclear medicine technologist in which you are given information to follow-up with Dr. Evans. Continue Tylenol ibuprofen or Chloraseptic Roosevelt for discomfort. Continue fluids rest. You may return here to the emergency department develop any fever, chills or any other worsening or concerning symptoms. With: Address: When: Tobi Evans [address] [place] [address] Business (1) Within 3 to 5 days Medication Information: The exam and treatment you received today in the [facility] Emergency Department were for an urgent problem and are not intended as complete care. It is important for you to follow up with a doctor, nurse practitioner, or physician?s inventory assistant for ongoing care. If your symptoms [...] so we can reach you if necessary. [facility] Emergency Department has provided you with a complete list of medications post discharge. Please inform your primary products inspectors/provider of your visit and for further instruction [...] Follow these instructions at home: ? Take uzpq-kng-mhobqrm medicines only as told by your health [...] 10/27/2005 Document Revised: 05/15/2017 Document Reviewed: 07/09/2016 [employer] Patient Education ? 2019 [employer] Pharyngitis Pharyngitis is redness, pain, and [...] Follow these instructions at home: ? Take tpow-zwr-qpprbrd and prescription medicines only as told by [...] 09/19/2006 Document Revised: 10/25/2017 Document Reviewed: 10/25/2017 [employer] Patient Education ? 2019 [employer] Viruses or Bacteria What?s got you [...] for Disease Control and Prevention June 2014 [facility] Strep Aon 09-04-2019 Strep procedure control Pass [facility] Comment on above: Performed By: #### [id number] ####[facility] (DEFAULT)[address] [place] [address] Streptococcus A Negative Normal Negative [facility] Comment on above: Performed By: #### [id number] ####[facility] (DEFAULT)[address] [place] [address] Coding Summaryon 09-03-2019 Coding Summary CODING DATE: 019 [facility] STATUS: Home PAYOR: Medicaid HMO ADMIT [...] Alpa Norman Date Saved: 09/03/2019 01:04 pm [facility] C Throaton 09-02-2019 C Throat Ordered by Discern. Normal throat leda isolated No pathogens isolated [facility] Comment on above: Performed By: #### [id number] ####[facility] (DEFAULT)[address] [place] [address] ED Clinical Summaryon 2018 ED Clinical Summary [facility] ? Urgent Care [address] [place] [address] Clinical Summary PERSON INFORMATION Name: NADIR HENDRICKSON Age: 33 Years Sex: FEMALE : 1985 MRN: Acct#: Visit Reason: UC - Sore Throat; SORE THROAT Arrival: 08/31/2019 17:03:36 Discharge: 08/31/2019 17:39:00 LOS: 000 00:36 Check In: 08/31/2019 17:03:36 Checkout: 08/31/2019 17:39:00 Address: [address] [place] [address] PCP: Rasta Palafox CNP PROVIDER INFORMATION Provider Role Assigned Unassigned Lucia KNIGHT, Rahpael ED Nurse 08/31/2019 17:05:27 Esteban Barry ED [...] Throat Follow-Up: With: Address: When: Rasta Palafox [address] [facility], [address] [place], [place] [phone] Business (1) Comments: Your throat sore throat [...] verbalizes understanding of instructions given Comment: Normal [facility] ED Patient Summaryon 019 ED Patient Summary [facility] ? Urgent Care [address] [place] [id number] PATIENT DISCHARGE INSTRUCTIONS Patient Information Name: NADIR HENDRICKSON Age: 33 Years Date of : 1985 Reason For Visit: UC - Sore Throat; SORE THROAT Arrival Time: 08/31/2019 17:03:36 Primary Care Physician: Rasta Palafox CNP Attending Physician: Esteban Barry Comment: Patient Education With: Address: When: Rasta Javy [address] [facility], [address] [place] [phone] Business (1) Comments: Your throat sore throat [...] Follow these instructions at home: ? Take yjbj-txh-lhgdzrr medicines only as told by your health [...] 10/27/2005 Document Revised: 05/15/2017 Document Reviewed: 07/09/2016 [employer] Patient Education ? 2019 [employer] Medication Information: The exam and treatment you received today in the [facility] Emergency Department were for an urgent problem and are not intended as complete care. It is important for you to follow up with a doctor, nurse practitioner, or physician?s inventory assistant for ongoing care. If your symptoms [...] so we can reach you if necessary. [facility] Emergency Department has provided you with a complete list of medications post discharge. Please inform your primary products inspectors/provider of your visit and for further instruction [...] viral pharyngitis (J02.8) UC - Sore Throat ([id number]) If you received any narcotics, sedation, or [...] Stop date 08/31/19 17:10:00 EST, Nurse collect, [id number] Radiology Cardiology Viruses or Bacteria What?s got [...] for Disease Control and Prevention June 2014 [facility] Patient Handouton 08-31-2019 Patient Handout Patient [...] Follow these instructions at home: ? Take yogj-bod-ziavvcl medicines only as told by your health [...] 10/27/2005 Document Revised: 05/15/2017 Document Reviewed: 07/09/2016 [employer] Patient Education ? 2019 [employer]. Normal [facility] Strep Aon 08-31-2019 Strep procedure control Pass [facility] Comment on above: Performed By: #### [id number] ####[facility] (DEFAULT)[address] [place] [address] Streptococcus A Negative Normal Negative [facility] Comment on above: Performed By: #### [id number] ####[facility] (DEFAULT)[address] [place] [address] Urgent Care Note- Provideron 08-31-2019 Urgent Care Note- Provider Patient: NADIR HENDRICKSON Age: 33 years Sex: FEMALE : 1985 Associated Diagnoses: Acute viral pharyngitis Author: Esteban Barry Basic Information Time seen: Date & time 08/31/2019 17:15:00. History source: Patient. Arrival mode: Walking. History limitation: None. Additional information: Chief Complaint from Nursing Triage Note : Chief Complaint 08/31/2019 17:06 EST Chief Complaint sore throat, difficult to swallow . Nadir is a pleasant 33-year-old patient who states [...] signs of peritonsillar abscess. Patient's afebrile. Chloraseptic Roosevelt, fluids, salt water gargle. Ibuprofen every 8 hours as needed for discomfort. Tylenol every 4-6 hours as needed for pain. Impression and Plan Diagnosis Acute viral pharyngitis (KWB98-PG J02.8, Discharge, Medical) Plan Condition: Stable. Disposition: [...] prescription, Patient indicated understanding of instructions. Normal [facility] Urgent Care [place] 019 Urgent Care Record [facility] ? Urgent Care [address] [place] [address] PATIENT DISCHARGE INSTRUCTIONS Patient Information Name: NADIR HENDRICKSON Age: 33 Years Date of : 1985 Reason For Visit: UC - Sore Throat; SORE THROAT Arrival Time: 08/31/2019 17:03:36 Primary Care Physician: Rasta Palafox CNP Attending Physician: Esteban Barry Comment: Visit Diagnosis: Diagnoses This Visit Acute viral pharyngitis (J02.8) UC - Sore Throat ([id number]) If you received any narcotics, sedation, or [...] legal documents With: Address: When: Rasta Palafox [address] [facility], [address] [place] [phone] Business (1) Comments: Your throat sore throat [...] and treatment you received today in the [facility] Urgent Care were for an urgent problem and are not intended as complete care. It is important for you to follow up with a doctor, nurse practitioner, or physician?s inventory assistant for ongoing care. If your symptoms [...] so we can reach you if necessary. [facility] has provided you with a complete list of medications post discharge. Please inform your primary products inspectors/provider of your visit and for further instruction [...] Follow these instructions at home: ? Take kiar-hgs-ahfiyxy medicines only as told by your health [...] 10/27/2005 Document Revised: 05/15/2017 Document Reviewed: 07/09/2016 [employer] Patient Education ? 2019 [employer] Viruses or Bacteria What?s got you [...] for Disease Control and Prevention June 2014 [facility] Vital Signs Date Time Vital Sign Value Performing Clinician Facility 09-10-2024 09:03-0500 Body height 149.9 cm Yamile Lowe PA Work Phone: [facility] 09-10-2024 09:03-0500 Body mass index (BMI) [Ratio] 54.33 kg/m2 Yamile Lowe PA Work Phone: [facility] 09-10-2024 09:03-0500 Body weight 122.02 kg Yamile Lowe PA Work Phone: [facility] 09-10-2024 09:03-0500 Diastolic blood pressure 84 mm[Hg] Yamile Lowe PA Work Phone: [facility] 09-10-2024 09:03-0500 Systolic blood pressure 128 mm[Hg] Yamile Lowe PA Work Phone: [facility] 08-13-2024 14:57-0500 Body height 149.9 cm Katherine Doss MD Work Phone: [facility] 08-13-2024 14:57-0500 Body mass index (BMI) [Ratio] 54.22 kg/m2 Katherine Doss MD Work Phone: [facility] 08-13-2024 14:57-0500 Body weight 121.84 kg Katherine Doss MD Work Phone: [facility] 08-13-2024 14:57-0500 Diastolic blood pressure 56 mm[Hg] Katherine Doss MD Work Phone: [facility] Comment on above: right arm 84/57 xl cuff used 08-13-2024 14:57-0500 Heart rate 76 /min Katherine Doss MD Work Phone: [facility] 08-13-2024 14:57-0500 SaO2% (BldA) [Mass fraction] 98 % Katherine Doss MD Work Phone: [facility] 08-13-2024 14:57-0500 Systolic blood pressure 86 mm[Hg] Katherine Doss MD Work Phone: [facility] Comment on above: right arm 84/57 xl cuff used 07-20-2024 09:54-0400 Body height 149.9 cm Laurent Sierra DPM Work Phone: [facility] 07-20-2024 09:54-0400 Body mass index (BMI) [Ratio] 53.32 kg/m2 Laurent Sierra DPM Work Phone: [facility] 07-20-2024 09:54-0400 Body weight 119.75 kg Laurent Sierra DPM Work Phone: [facility] 12-12-2023 12:06-0400 Body height 149.9 cm Katherine Doss MD Work Phone: [facility] 12-12-2023 12:06-0400 Body mass index (BMI) [Ratio] 53.73 kg/m2 Katherine Doss MD Work Phone: [facility] 12-12-2023 12:06-0400 Body weight 120.66 kg Katherine Doss MD Work Phone: [facility] 12-12-2023 12:06-0400 Diastolic blood pressure 78 mm[Hg] Katherine Doss MD Work Phone: [facility] 12-12-2023 12:06-0400 Heart rate 67 /min Katherine Doss MD Work Phone: [facility] 12-12-2023 12:06-0400 SaO2% (BldA) [Mass fraction] 96 % Katherine Doss MD Work Phone: [facility] 12-12-2023 12:06-0400 Systolic blood pressure 129 mm[Hg] Katherine Doss MD Work Phone: [facility] 12-22-2020 11:30-0400 Body Temperature 98.4 [degF] [facility] Work Phone: 12-22-2020 11:30-0400 BP Diastolic 73 mm[Hg] [facility] Work Phone: 12-22-2020 11:30-0400 BP Systolic 102 mm[Hg] [facility] Work Phone: 12-22-2020 11:30-0400 Pulse (Heart Rate) 79 /min [facility] Work Phone: 12-22-2020 11:30-0400 Pulse Oximetry 99 % [facility] Work Phone: 12-22-2020 11:30-0400 Respiratory Rate 18 /min [facility] Work Phone: 12-22-2020 08:14-0400 BMI (Body Mass Index) 54.13 kg/m2 [facility] Work Phone: 12-22-2020 08:14-0400 Body weight 121.56 kg [employer] Phone: 12-22-2020 08:14-0400 Height 149.9 cm [employer] Work Phone: 03-31-2020 12:41-0400 Body Temperature 97.2 [degF] [place] [facility], [place] 03-31-2020 12:41-0400 BP Diastolic 77 mm[Hg] [place], [place] 03-31-2020 12:41-0400 BP Systolic 125 mm[Hg] [place] 03-31-2020 12:41-0400 Pulse (Heart Rate) 80 /min [place] 03-31-2020 12:41-0400 Pulse Oximetry 96 % [facility] , [place] 03-31-2020 12:41-0400 Respiratory Rate 17 /min [place], [place] 03-31-2020 11:32-0400 BMI (Body Mass Index) 54.13 kg/m2 [place] 03-31-2020 11:32-0400 Body weight 121.56 kg [place] 03-31-2020 11:32-0400 Height 149.9 cm [place] Encounters Encounter Date Encounter Type Care Provider Facility Start: 09-10-2024 End: 09-10-2024 Bamboo flowsheet Yamile Lofton PA Work Phone: [facility] Start: 09-10-2024 End: 09-10-2024 Bamboo flowsheet Yamile Lofton PA Work Phone: [facility] Start: 09-10-2024 End: 09-10-2024 Telephone encounter Yamile Lofton PA Work Phone: [facility] [address] [facility] Start: 09-10-2024 End: 09-10-2024 Office outpatient visit 25 minutes Yamile Lofton PA Work Phone: [facility] Comment on above: Paresthesia (Primary Dx) Start: 09-10-2024 End: 09-10-2024 ambulatory YAMILE LOFTON Not Available Start: 09-03-2024 End: 09-04-2024 Refill Katherine Doss MD Work Phone: [facility] Comment on above: Moderate persistent asthma, unspecified whether complicated Start: 08-15-2024 End: 08-15-2024 Telephone encounter Katherine Doss MD Work Phone: [facility] Comment on above: Sleep Lab (HST) Start: 08-14-2024 End: 08-14-2024 Telephone encounter Orders Support User Transcribe [facility] Comment on above: Sleep Lab (PSG Order ) Start: 08-13-2024 End: 08-13-2024 ambulatory KATHERINE DOSS [facility] Start: 08-13-2024 End: 08-13-2024 Office outpatient visit 15 minutes Katherine Doss MD Work Phone: [facility] Comment on above: MUKESH (obstructive sle ep apnea) (Primary Dx) Start: 07-20-2024 End: 07-20-2024 Bamboo flowsheet Laurent Sierra DPM Work Phone: [facility] Start: 07-20-2024 End: 07-20-2024 Bamboo flowsheet Laurent Sierra DPM Work Phone: [facility] Start: 07-20-2024 End: 07-20-2024 Office outpatient visit 15 minutes Laurent Sierra DPM Work Phone: [facility] Comment on above: Capsulitis of right foot (Primary Dx); Sprain of ligament of tarsometatarsal joint of right foot, sequela; Pain in joint of right foot; Difficulty walking Start: 07-20-2024 End: 07-20-2024 ambulatory LAURENT SIERRA Not Available Start: 07-18-2024 End: 07-18-2024 ambulatory LAURENT SIERRA Not Available Start: 07-18-2024 End: 07-18-2024 Patient encounter procedure Laurent Sierra DPM Work Phone: [facility] Comment on above: Dystrophic nail (Chantal nadir Dx); Onychocryptosis; Pain around toenail, right foot; Pain around toenail, left foot Start: 07-18-2024 End: 07-18-2024 Bamboo flowsheet Laurent Sierra DPM Work Phone: [facility] Start: 07-18-2024 End: 07-18-2024 Bamboo flowsheet Laurent Sierra DPM Work Phone: [facility] Start: 07-17-2024 End: 07-17-2024 Bamboo flowsheet Laurent Sierra DPM Work Phone: [facility] Start: 07-17-2024 End: 07-17-2024 Bamboo flowsheet Laurent Sierra DPM Work Phone: [facility] Start: 04-12-2024 End: 04-12-2024 ambulatory DELMY PICHARDO Not Available Start: 03-28-2024 End: 03-28-2024 ambulatory LAURENT SIERRA Not Available Start: 03-15-2024 End: 03-15-2024 ambulatory LAURENT RAGLAND Not Available Start: 03-14-2024 End: 03-14-2024 ambulatory DELMY C MIKKINAGEL Not Available Start: 03-06-2024 End: 03-06-2024 ambulatory [facility] Start: 03-06-2024 Encounter for other preprocedural examination [facility] Start: 02-21-2024 End: 02-21-2024 ambulatory DWAYNE CEJA [facility] Start: 02-06-2024 End: 02-06-2024 ambulatory INGRID CULVER [facility] Start: 12-12-2023 End: 12-12-2023 Office outpatient visit 15 minutes Katherine Doss MD Work Phone: [facility] Comment on above: MUKESH (obstructive sle ep apnea) (Primary Dx) Start: 12-12-2023 End: 12-12-2023 ambulatory KATHERINE DOSS [facility] Start: 12-07-2023 End: 12-07-2023 ambulatory LAURENT SIERRA Not Available Start: 11-08-2023 Refill Katherine fiore MD Work Phone: [facility] Comment on above: Moderate persistent asthma, unspecified whether complicated Start: 10-10-2023 Refill Katherine fiore MD Work Phone: [facility] Comment on above: Moderate persistent asthma, unspecified whether complicated Start: 02-13-2023 End: 02-13-2023 ambulatory GEOVANNI ROBBIE . Facility: Start: 01-05-2021 End: 01-05-2021 Patient encounter procedure [facility] Start: 12-22-2020 End: 12-22-2020 Patient encounter procedure [facility] Start: 12-22-2020 End: 12-22-2020 Subsequent hospital visit by physician Kolby Ellis Work Phone: [facility] Comment on above: Post-op pain (Primar y Dx) Start: 03-31-2020 End: 03-31-2020 Patient encounter procedure INGRID CULVER [facility] Start: 03-31-2020 End: 03-31-2020 Subsequent hospital visit by physician Kolby Ellis Work Phone: [facility] Start: 03-27-2020 End: 03-27-2020 Subsequent hospital visit by physician [facility] Covid19 Pat Screening Schedule [facility] Pre-Admit Testing Comment on above: No Show Procedures Date Procedure Procedure Detail Performing Clinician Start: 07-20-2024 Radex foot complete minimum 3 views Laurent Sierra DPM Work Phone: Start: 02-06-2024 Adult depression scr eening assessment Katherine Doss MD Work Phone: Start: 12-12-2023 Follow-up visit Follow-up KATHERINE DOSS Start: 09-11-2021 Adult depression scr eening assessment Katherine Doss MD Work Phone: Start: 12-22-2020 Glucose blood reagen t strip Kolby Ellis Work Phone: Start: 12-22-2020 Fluoroscopy during operation Kolby [facility] Work Phone: Start: 12-22-2020 Gonadotropin chorion ic qualitative Rosana Michael Drecase Work Phone: Start: 12-22-2020 Glucose blood reagen t strip Kolby Ellis Work Phone: Start: 06-10-2020 Microscopic observat ion [Identifier] in Cervix by Cyto stain Katherine Doss MD Work Phone: Start: 03-31-2020 DISCHARGE PATIENT MACARIO CULVER Start: 03-31-2020 Urine test visual color cmprsn meths INGRID CULVER Start: 03-31-2020 Urine test visual color cmprsn jeremy Ellis Work Phone: Plan of Treatment Date Care Activity Detail Author Start: 11-26-2030 DTaP,Tdap and Td Vaccines (2 - Tdap) DTaP,Tdap and Td Vaccines (2 - Tdap) [facility] Start: 08-13-2025 Adult BMI Screening Adult BMI Screen ing [facility] Start: 04-15-2025 End: 04-15-2025 Patient encounter procedure 04/15/2025 2:30 PM EDT Office Visit [facility] [address] [address] Katherine Doss MD [address] [place] [address] [facility] Start: 03-06-2025 Tobacco Screening Tobacco Screening [facility] Start: 02-05-2025 Adult BMI Follow Up Plan Adult BMI Follow Up Plan [facility] Start: 02-05-2025 Depression Screening Depression Scre ening [facility] Start: 12-18-2024 End: 12-18-2024 Patient encounter procedure 12/18/2024 2:20 PM EDT Office Visit [facility] [place] [address] [place] [phone] Yamile Lofton PA [address] [place] [id number] [facility] [address] [facility] Start: 12-11-2024 Adult BMI Screening Adult BMI Screen [facility] Start: 09-10-2024 End: 09-10-2025 MR Lumbar spine WO contrast MR lumbar spine wo contrast Imaging Routine Paresthesia Expected: 09/10/2024, Expires: 09/10/2025 [facility] Work Phone: Comment on above: Expected: 09/10/2024 , Expires: 09/10/2025 Start: 09-10-2024 End: 09-10-2024 Patient encounter procedure 09/10/2024 9:00 AM EST Office Visit [facility] [address] [place] [phone] Yamile Lofton PA [address] [place], [place] [id number] [facility] Comment on above: Arrived Start: 08-27-2024 End: 08-27-2024 Patient encounter procedure 08/27/2024 1:20 PM EST Office Visit [facility] [address] [place] [phone] Delmy Pichardo, STATE APPELLATE CLERK [address] [place] [address] [facility] [address] [facility] Start: 07-31-2024 End: 07-31-2024 Patient encounter procedure 07/31/2024 10:45 AM EDT Office Visit [facility] [address] [place] [address] Laurent Sierra, DPM [address] [place] [address] [facility] Start: 07-20-2024 End: 07-20-2024 Patient encounter procedure [facility] Comment on above: Arrived Start: 07-18-2024 End: 07-18-2024 Patient encounter procedure 07/18/2024 2:15 PM EDT Procedure Visit [facility] [address] [place] [phone] Laurent Sierra, DPM [address] [place], [place] [id number] Arrived [facility] Comment on above: Arrived Start: 06-25-2024 End: 06-25-2024 Patient encounter procedure 06/25/2024 2:30 PM EDT Office Visit [facility] [place] [phone] Katherine Doss MD [address] [address] [facility] Start: 06-03-2024 COVID-19 Vaccine ( season) COVID-19 Vaccine ( season) [facility] Start: 06-03-2024 Influenza vaccination [facility] Start: 04-11-2024 Adult BMI Screening Adult BMI Screen ing [facility] Start: 02-06-2024 End: 02-06-2024 Patient encounter procedure 02/06/2024 8:30 AM EDT Office Visit [facility] [place] [address] [place] [address] [facility] Start: 02-02-2024 Adult BMI Follow Up Plan Adult BMI Follow Up Plan [facility] Start: 02-02-2024 Tobacco Screening Tobacco Screening [facility] Start: 12-12-2023 End: 12-12-2023 Patient encounter procedure 12/12/2023 12:15 PM EDT Office Visit [facility] [address] [phone] Katherine Doss MD [address] [facility] [place] [address] [facility] Start: 06-10-2023 Screening for malign ant neoplasm of cervix Pap Smear [facility] Start: 06-03-2023 COVID-19 Vaccine ( season) COVID-19 Vaccine () [facility] Start: 06-03-2023 Influenza vaccination Influenza Vacc ine [facility] Start: 09-11-2022 Depression Screening Depression Scre ening [facility] Start: 01-05-2021 End: 01-05-2021 Hospital Encounter [facility] Comment on above: 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 Start: 06-03-2020 Influenza vaccination [place], [place] Start: 2015 Screening for malign ant neoplasm of cervix [facility] Start: 2006 Screening for malign ant neoplasm of cervix [facility] Start: 2004 DTaP/Tdap/Td vaccine (1 - Tdap) DTaP/Tdap/Td vaccine (1 - Tdap) [place], [place] Start: 2003 Diabetic foot examination Diabetic Foot Exam [facility] Start: 2001 COVID-19 Vaccine (1) COVID-19 Vaccin e (1) [facility] Phone: Start: 2000 HIV screening HIV screen [place], [place] Start: 1995 Lipid panel Lipid screen [facility] Work Phone: Start: 1986 Varicella vaccine (1 of 2 - 2-dose childhood series) Varicella vaccine (1 of 2 - 2-dose childhood series) [place], [place] Start: 1985 Creatinine measurement Creatinine mo nitoring [facility] Phone: Start: 1985 Glaucoma screening Diabetic Op hthalmology Exam [facility] Start: 1985 Hepatitis C screening Hepatitis C sc reen [facility] Phone: Start: 1985 Potassium monitoring Potassium monit oring [facility] Work Phone: End: 12-23-2020 Blood glucose - POCT Blood glucose - POCT Point of Care Testing Routine One Time for 1 Occurrences starting 12/23/2020 until 12/23/2020 [facility] Work Phone: Comment on above: One Time for 1 Occur rences starting 12/23/2020 until 12/23/2020 Continuous pulse oximetry Pulse oximetry, continuous Respiratory Care Routine Every 4hr until discontinued starting 12/23/2020 [facility] Work Phone: Comment on above: Every 4hr until disc ontinued starting 12/23/2020 End: 03-27-2020 COVID-19 COVID-19 Lab Routine One Time for 1 Occurrences starting 03/27/2020 until 03/27/2020 [facility] [place], [place] Comment on above: One Time for 1 Occur rences starting 03/27/2020 until 03/27/2020 End: 08-13-2025 [facility] Routine MUKESH (obstructive sleep apnea) 1 Occurrences starting 08/13/2024 until 08/13/2025 [facility]: Comment on above: 1 Occurrences starti ng 08/13/2024 until 08/13/2025 Immunizations Immunization Date Immunization Notes Care Provider Fa [facility] 11-26-2020 diphtheria, tetanus toxoids and pertussis vaccine Katherine Doss MD Work Phone: [facility] 07-30-2020 influenza, injectabl e, quadrivalent, preservative free Laurent Sierra DPM Work Phone: [facility] 07-30-2020 influenza virus vaccine, unspecified formulation Laurent Sierra DPM Work Phone: [facility] 06-26-2020 influenza virus vaccine, unspecified formulation Katherine Doss MD Work Phone: [facility] 06-28-2019 influenza, injectabl e, quadrivalent, contains preservative Laurent Sierra DPM Work Phone: [facility] Payers Date Payer Category Payer Medicaid (Managed Care) [facility] MEDICAID [id number] 2014 Unknown [facility] xxxxxxxxxxxx 2014-Present [phone] [address] [place] [id number] xxxxxxxxxxxx [id number] 2003 Medicaid [place] [employer] [employer] [id number] 2003-Present [phone] [address] [place] [id number] 2003 Medicaid HMO [place] [id number] 1985 Unknown [id number] 2.16.840.1.815707.3.579.2. 177 1985 Unknown [id number] 2.16.840.1.615971.3.579.2. 177 1985 Unknown [id number] 2.16.840.1.380888.3.579.2. 175 1985 Unknown [id number] 2.16.840.1.977276.3.579.2. 593 1985 Unknown [id number] 2.16.840.1.027412.3.579.2. 128 1985 Unknown [id number] 2.16.840.1.978583.3.579.2. 1285 1985 Unknown [id number] 2.16.840.1.359317.3.579.2. 1285 1985 Unknown [id number] 2.16.840.1.827948.3.579.2. 1285 1985 Unknown [id number] 2.16.840.1.813623.3.579.2. 1285 1985 Unknown [id number] 2.16.840.1.411783.3.579.2. 1258 1985 Unknown [id number] 2.16.840.1.964438.3.579.2. 1258 1985 Unknown [id number] 2.16.840.1.016963.3.579.2. 1258 1985 Unknown [id number] 2.16.840.1.175983.3.579.2. 1258 1985 Unknown [id number] 2.16.840.1.512840.3.579.2. 1258 1985 Unknown [id number] 2.16.840.1.255912.3.579.2. 1258 1985 Unknown [id number] 2.16.840.1.296614.3.579.2. 1258 1985 Unknown [id number] 2.16.840.1.200367.3.579.2. 1258 1985 Unknown [id number] 2.16.840.1.213714.3.579.2. 1259 1959 Unknown [id number] [id number]. [id number] Social History Date Type Detail Facility Start: 03-31-2020 End: 04-28-2023 Tobacco smoking status NHIS Never smoker [facility] Start: 03-31-2020 End: 09-10-2024 Alcohol intake Lifetime non-drinker (finding) [facility] [place] Start: 03-31-2020 History SDOH Alcohol Frequency 1 [place], [place] Start: 1985 Sex Assigned At Not on file M [place] Exposure to SARS-CoV -2 (event) Unable to assess [place], [place] Start: 12-22-2020 End: 04-28-2023 Tobacco use and exposure Never used [employer] Phone: Exposure to SARS-CoV -2 (event) Not sure [facility] Phone: Start: 02-01-2023 End: 03-06-2024 Alcohol intake Current non-drinker of alcohol (finding) [facility] Start: 02-01-2023 End: 09-10-2024 History of Social function [facility] Start: 02-01-2023 End: 09-10-2024 Tobacco use panel [facility] Adolescent depressio n screening assessment 3 [facility] Start: 1985 Sex Assigned At Female P [facility] Start: 04-30-2019 Gender identity Identifies as female gender (finding) [facility] Start: 04-27-2023 Alcohol Comment Caffeine intak e: >4 cups per day pop [facility] Start: 08-03-2015 Sex Female (finding) [facility] Medical Equipment Procedure Code Equipment Code Equipment Original Text Equipment Identifier Dates Kit Lead Sure Scan Interstim Mri [id number] Start: 12-22-2020 Implant Lead-01/05/2021 [id number] Start: 01-05-2021 Neuro Stimulator-01/06/20 [id number] Start: 01-05-2021 Comment on above: Description: interst im II bladder stimulator Clinical Notes 12-12-2023 to 09-10-2024 MAYCOL Eubanks - 09/10/2024 9:00 AM ESTTelephone Encounter - Veronica Baker - 08/15/2024 2:41 PM ESTTelephone Encounter - Sammi Johns - 08/15/2024 2:41 PM ESTPatient Instructions Note Date & Type Note Facility 09-10-2024 History of Presen t illness Narrative Images from the original note were not included. Subjective Nadir Hendrickson is a 38 y.o. year old female Chief Complaint Patient presents with Polyneuropathy Past Medical History: Diagnosis Date Abnormal EKG Anxiety Since childhood Asthma (CMS/HCC) Bradycardia Depression (CMS/HCC) Edema Essential hypertension (CMS/HCC) Hyperlipidemia (CMS/HCC) Hypothyroidism (CMS/HCC) Polyneuropathy Seasonal allergies Type II diabetes mellitus (CMS/HCC) Wheezing Past Surgical History: Procedure Laterality Date CHOLECYSTECTOMY OTHER SURGICAL HISTORY 02/06/2021 Neurostimulator for the bladder - Medtronic device placed WISDOM TOOTH EXTRACTION WRIST SURGERY excision of cyst Family History Problem Relation Name Age of Onset Hypertension Father Jose L Cancino Francia Hyperlipidemia Father Jose L Cancino Francia Heart disease Father Jose L Cancino Francia Emphysema Father Jose L Cancino Francia Asthma Father Jose L Cancino Francia Bipolar disorder Sister Bipolar disorder Daughter Diabetes Mother's Sister Lor Ferguson Social History Tobacco Use Smoking status: Never Smokeless tobacco: Never Substance Use Topics Alcohol use: Never Comment: Caffeine intake: >4 cups per day pop Medication Documentation Review Audit Reviewed by Barb Devries MA (Centerless Grinder Set Up Operator) on 09/10/24 at 0908 Medication Order Taking? Sig Documenting Provider Last Dose Status Apple Cider Vinegar 188 MG capsule [id number] No Apple Cider Vinegar Historical Provider, Taking Active busPIRone (Buspar) 15 MG tablet [id number] No Take 15 mg by mouth Daily Historical Provider, Taking Active Calcium Citrate-Vitamin D (Calcium + D) 315-5 MG-MCG tablet [id number] No Calcium + D Historical Provider, Taking Active cetirizine (ZyrTEC) 10 MG tablet [id number] No Historical Provider, Taking Active gabapentin (Neurontin) 400 MG capsule [id number] Take 1 capsule (400 mg) by mouth in the morning and 1 capsule (400 mg) in the evening and 1 capsule (400 mg) before bedtime. Delmy Pichardo, CHRISTINE Active hydroCHLOROthiazide (HYDRODiuril) 25 MG tablet [id number] No Take 25 mg by mouth Daily Historical Provider, Taking Active HYDROcodone-acetaminophen ([place]) 5-325 MG tablet [id number] No Historical Provider, Taking Active hydrOXYzine pamoate (Vistaril) 25 MG capsule [id number] No TAKE 1 CAPSULE BY MOUTH TWICE PER DAY NEEDED Historical Provider, Taking Active Januvia 100 MG tablet [id number] No Take 100 mg by mouth Daily Laurent Sierra DPM Taking Active levothyroxine (Synthroid, Levoxyl) 50 MCG tablet [id number] No Historical Provider, Taking Active lisinopril 2.5 MG tablet [id number] No Historical Provider, Taking Active loperamide (Imodium) 2 MG capsule [id number] No take 1 capsule by mouth if needed AFTER EACH LOOSE STOOL NOT TO EXCEED 8 CAPSULES PER DAY Historical Provider, Taking Active meloxicam (Mobic) 15 MG tablet [id number] No take 1 tablet by mouth once daily with food if needed for DISCOMFORT Historical Provider, Taking Active montelukast (Singulair) 10 MG tablet [id number] No Historical Provider, Taking Active nitrofurantoin, macrocrystal-monohydrate, (Macrobid) 100 MG capsule [id number] TAKE 1 CAPSULE BY MOUTH EVERY 12 HOURS WITH FOOD Historical Provider, Active omeprazole (PriLOSEC) [address] capsule [id number] No Historical Provider, Taking Active ondansetron (Zofran) 4 MG tablet [id number] No Historical Provider, Taking Active oxybutynin XL (Ditropan-XL) 10 MG 24 hr tablet [id number] No Historical Provider, Taking Active Ozempic, 1 MG/DOSE, 4 MG/3ML solution pen-injector [id number] No INJECT 1 UNITS DOSE SUBCUTANEOUSLY ON TUESDAY OF EACH WEEK Historical Provider, Taking Active predniSONE (Deltasone) 10 MG tablet [id number] 1 tablet twice daily x 7 days; followed by 1 tablet daily as directed until complete Patient not taking: Reported on 09/10/2024 Laurent Sierra DPM Active pseudoephedrine ER (Sudafed-12 Hour) 120 MG 12 hr tablet [id number] No Patient not taking: Reported on 09/10/2024 Historical Provider, Taking Active QUEtiapine (SEROquel) 100 MG tablet [id number] No Historical Provider, Taking Active sertraline (Zoloft) 100 MG tablet [id number] No Historical Provider, Taking Active SITagliptin (Januvia) 50 MG tablet [id number] No Take 100 mg by mouth in the morning. Laurent Sierra DPM Taking Active traZODone (Desyrel) 50 MG tablet [id number] No Take 50 mg by mouth at bedtime. Historical Provider, Taking Active Trulicity 0.75 MG/0.5ML solution auto-injector [id number] INJECT 0.5ml SUBCUTANEOUSLY (UNDER THE SKIN) ONCE A WEEK Laurent Sierra DPM Active Turmeric powder [id number] No as directed Historical Provider, Taking Active HPI NEUROPATHY -On Gabapentin 400mg TID -She states medication helps -Symptoms primarily affect her feet and hands bilaterally, right worse than left. -she still has some pins and needle feeling mostly in her right thigh -She admits burning sensation in the right upper thigh. -She admits some gait instability but denies any falls. -She denies any weakness. -She denies any back or neck pain. -she denies any other issues or concern -she did therapy a while ago -her symptoms have been around for years -blood glucose this morning was high for her at 116 -her last A1C per her report was 5.2% ROS Review of Systems Constitutional: Negative for chills and fever. HENT: Negative for congestion, sinus pressure, sinus pain, sore throat and trouble swallowing. Eyes: Negative for photophobia, pain, discharge, redness, itching and visual disturbance. Respiratory: Negative for chest tightness and shortness of breath. Cardiovascular: Negative for chest pain and palpitations. Gastrointestinal: Negative for abdominal pain, nausea and vomiting. Genitourinary: Negative for decreased urine volume, pelvic pain and urgency. Musculoskeletal: Positive for gait problem. Negative for back pain and neck pain. Neurological: Positive for numbness. Negative for dizziness, tremors, seizures, syncope, facial asymmetry, speech difficulty, weakness, light-headedness and headaches. Psychiatric/Behavioral: Positive for sleep disturbance. The patient is nervous/anxious. Endocrine: Positive for heat intolerance. Negative for cold intolerance. Objective Visit Vitals BP 128/84 Ht 4' 11 Wt 269 lb BMI 54.33 kg/m Smoking Status Never BSA 2.25 m GENERAL Apical RRR, no murmur Neurological Exam Mental Status Awake, alert and oriented to person, place and time. Speech is normal. Language is fluent with no aphasia. Attention and concentration are normal. Fund of knowledge is appropriate for level of education. Cranial Nerves CN III, IV, : Extraocular movements intact bilaterally. Normal lids and orbits bilaterally. Pupils equal round and reactive to light bilaterally. CN V: Facial sensation is normal. CN VII: Full and symmetric facial movement. CN VIII: Hearing is normal. CN IX, X: Palate elevates symmetrically. Normal gag reflex. CN XI: Shoulder shrug strength is normal. CN XII: Tongue midline without atrophy or fasciculations. Sensory Light touch is normal in upper and lower extremities. Pinprick abnormality: Temperature abnormality: Vibration is normal in upper and lower extremities. Sensation: Increased temperature and pinprick in the proximal right this compared to the left. Reflexes Right pathological reflexes: Kt's present. Crossed adductor present. Left pathological reflexes: Kt's present. Crossed adductor present. Coordination Right: [id number] normal. Rapid alternating movement normal.Left: [id number]-ay-[id number] normal. Rapid alternating movement normal. Gait Casual gait is normal including stance, stride, and arm swing. Motor Examination RUE Strength deltoid, biceps, triceps, wrist extensors, wrist extensors, wrist flexor, edge worker strength 5/5. LUE Strength deltoid, biceps, triceps, wrist extensors, wrist extensors, wrist flexor, edge worker strength 5/5. RLE Strength illopsoas, quadriceps, tibialis anterior, and gastrocnemius strength 5/5. LLE Strength illopsoas, quadriceps, tibialis anterior, and gastrocnemius strength 5/5. Tone Normal tone x4 extremities. Reflexes: RUE biceps reflex 3, brachioradialis reflex 3 LUE biceps reflex 3, brachioradialis reflex 3 RLE knee reflex 3, LLE knee reflex 3, Assessment and Plan 1. Paresthesias - 38-year-old female with numbness and tingling started in 2004. Her symptoms are most consistent with a peripheral neuropathy secondary to diabetes mellitus. She reports a pain in her right thigh possibly due to a lumbar radiculopathy in the L2/3 distribution. EMG BLE on 03/15/24 was normal. She has responded well to gabapentin but her symptoms persist. She has continued pain worse to her right leg. Fortunately, she has denied falls. Diagnoses and all orders for this visit: Paresthesia PLAN: Adjust gabapentin to 500mg PO TID to see if this helps with neuropathic pain. I counseled the patient on the side effects of medications. I will order an MRI of the lumbar spine to assess for structural changes such as degenerative disc disease or facet disease. I counseled the patient on fall precautions. I discussed the high risk of trauma and debility associated with falls. Patient verbalized understanding. Follow up in 6-8 weeks documented in this encounter [facility] 08-15-2024 Miscellaneous Notes 08/15 HST order received Called PT LM to schedule sleep study. HST order & 08/13 Jose notes in epic With oral appliance PT called to schedule PT states she does not drive and has a hard time getting a ride to the hospital, asked if she could get it mailed to her I informed the PT we do not mail the units out. She is going to wait until next month when she does a different test. Order deferred documented in this encounter [facility] 08-15-2024 Telephone encounter Note 08/15 HST order received Called PT LM to schedule sleep study. HST order & 08/13 Jose notes in epic With oral appliance [facility] 08-15-2024 Telephone encounter Note PT called to schedule PT states she does not drive and has a hard time getting a ride to the hospital, asked if she could get it mailed to her I informed the PT we do not mail the units out. She is going to wait until next month when she does a different test. Order deferred [facility]? [facility] 08-14-2024 Miscellaneous Notes 08/13 Order received Called PT LM to schedule sleep study. PSG Order and 08/13 Jose notes in epic With OMAD (does not need titration), ok to sleep on side documented in this encounter [facility] 08-14-2024 Telephone encounter Note 08/13 Order received Called PT LM to schedule sleep study. PSG Order and 08/13 Jose notes in epic With OMAD (does not need titration), ok to sleep on side [facility]? [facility] 08-13-2024 History of Presen t illness Narrative Images from the original note were not included. [address] [place] [id number] Patient: Nadir Hendrickson Date of : 1985 Encounter Date: 08/13/2024 History of Present Illness: The patient is a 38 y.o. female, is here for follow up of MUKESH. Recently got a puppy and her sleep has been disrupted. Fitted OMAD from Dr. Abreu. Intermittent use. She has been told recently that she is snoring even with her oral device in. BT - 9 pm (listens to phone, dark, in bed, no pets, no bed partner) EUGENE - minutes WASO - depends on fluid intake WT - 7-7:45am Nap - sometimes Sleep aid - started previously trazodone 50 mg (around 8pm), quetiapine (stopped 2022 for weight gain) Nocturnal behaviors / RLS = denies Drowsy driving = doesn't drive Physical Exam: BP (!) 86/56 (BP Site: Left Arm, BP Postition: Sitting) Comment: right arm 84/57 xl cuff used Pulse 76 Ht 149.9 cm (4' 11.02 ) Wt 121.8 kg (268 lb 9.6 oz) SpO2 98% BMI 54.22 kg/m General Appearance - Awake, alert, oriented, in no acute distress 05/14/2019 7:34 PM 03/22/2022 8:25 PM 04/11/2023 9:00 AM 12/12/2023 12:00 PM 08/13/2024 2:00 PM Brinklow Sleepiness Scale Sitting and Reading 2 0 0 1 1 Watching TV 2 0 3 2 1 Sitting inactive in a public place (theater, meeting) 1 0 0 0 0 As a passenger in a car for an hour without a break 0 0 0 0 0 Lying down in the afternoon to rest 3 2 3 3 3 Sitting and talking to someone 0 0 0 0 0 Sitting quietly after lunch (without alcohol) 2 0 0 0 0 In a car, while stopped for a few minutes in traffic 0 0 0 0 0 Total 10 2 6 6 5 Assessment: 1. Obstructive sleep apnea (AHI 21.9, minimum saturation 84%, PSG March 2022, weight 273) previously tried PAP therapy, currently using OMAD (snoring) 2. Mild intermittent asthma, currently controlled 3. Nonepileptic seizures 4. Chronic sleep maintenance insomnia 5. History of hives with methylprednisolone, previously tolerated Advair 6. Obesity, BMI 54 Plan: 1. PSG with OMAD with side sleep 2. Please call Dr. Abreu to let him know you're snoring with the OMAD in 3. Symbicort as needed 4. Follow up in 6 months Katherine Doss MD Pulmonary and Sleep Medicine [facility] Past Medical, Family, and Social History Update: The following portions of the patient's history were reviewed and updated as appropriate: allergies, current medications, past family history, past medical history, past social history, past surgical history and problem list. Past Medical History: Diagnosis Date Allergic Arthritis Asthma Back pain Chronic kidney failure Depression Diabetes mellitus (CMS-HCC) Eczema Failure to thrive (child) GERD (gastroesophageal reflux disease) HTN (hypertension) Hypothyroid Migraine Panic attack Visual impairment Past Surgical History: Procedure Laterality Date CHOLECYSTECTOMY IMPLANTATION VAGAL NERVE STIMULATOR 2020 Family History Problem Relation Age of Onset Heart disease Father Emphysema Father Asthma Father Hypertension Father No Known Problems Mother Diabetes Maternal Aunt Breast cancer Neg Hx Colon cancer Neg [...] famotidine (PEPCID) 20 mg tablet gabapentin (NEURONTIN) 400 mg capsule 1 capsule (400 mg total). hydroCHLOROthiazide (MICROZIDE) 12.5 mg capsule 1 capsule in the morning Orally Once a day for 30 day(s) hydrOXYzine (VISTARIL) 25 mg capsule Take 1 capsule (25 mg total) by mouth 3 (three) times a day as needed. JANUVIA 100 mg tablet Take 1 tablet (100 mg total) by mouth in the morning. levothyroxine (SYNTHROID, LEVOTHROID) 50 MCG tablet 1 [...] capsule (40 mg total) by mouth nightly. sertraline (ZOLOFT) 100 mg tablet Take 1 tablet (100 mg total) by mouth in the morning. SYMBICORT 160-4.5 mcg/actuation inhaler INHALE TWO (2) PUFFS BY MOUTH TWICE DAILY 10.2 g 10 traZODone (DESYREL) 50 mg tablet Take 1 tablet (50 mg total) by mouth nightly. VENTOLIN HFA 90 mcg/actuation inhaler INHALE 2 PUFFS BY MOUTH EVERY 4-6 HOURS NEEDED 18 g 10 VITAMIN D3 50 mcg (2,000 unit) capsule Take 1 capsule (2,000 Units total) by mouth in the morning. No current facility-administered medications for this visit. (All medications reviewed and updated by provider since last office visit or hospitalization) Allergies: Claritin [loratadine], Methylprednisolone, Oxycodone, and Metformin Tobacco History: Social History Tobacco Use Smoking Status Never Smokeless Tobacco Never (If patient a smoker, smoking cessation counseling offered) Social History: Social History Substance and Sexual Activity Alcohol Use No documented in this encounter [facility] 08-13-2024 Instructions Katherine Doss MD - 08/13/2024 2:30 PM EST 1. PSG with OMAD with side sleep 2. Please call Dr. Abreu to let him know you're snoring with the OMAD in 3. Symbicort as needed 4. Follow up in 6 months documented in this encounter [facility] 07-20-2024 History of Presen t illness Narrative Images from the original note were not included. Subjective Patient ID: Nadir Hendrickson is a 38 y.o. female who presents for No chief complaint on file.. HPI Chief complaint: Persistent pain and mild swelling of the right midfoot; subsequent to injury incident sustained on or about mid-March of 2024. Mechanism of incident: Patient wearing an ill fitting pair of wedged sandals; describes a slipping and/or twisting type mechanism of the right foot; with initial discomfort developing into more acute pain over the next week or so. Patient did not note any specific bruising; as such, did not seek treatment or radiographs. Symptoms are typically activity related; impacting ADLs and her ability to walk comfortably; generally relieved with relative rest. Persistent somewhat progressive symptoms over the past month or so. Aleve, typically on a daily basis, provides transient relief; is increasingly less effective. There has been no other specific treatment. Denies prodromal symptoms Risk factors: Medical comorbidities. Type II diabetes. Polypharmacy. Toenail deformity. Digital and/or shoe trauma and related complications. Medications Current Outpatient Medications: Apple Cider Vinegar 188 MG capsule, Apple Cider Vinegar, Disp: , Rfl: busPIRone (Buspar) 15 MG tablet, Take 15 mg by mouth Daily, Disp: , Rfl: Calcium Citrate-Vitamin D (Calcium + D) 315-5 MG-MCG tablet, Calcium + D, Disp: , Rfl: cetirizine (ZyrTEC) 10 MG tablet, , Disp: , Rfl: gabapentin (Neurontin) 400 MG capsule, Take 1 capsule (400 mg) by mouth in the morning and 1 capsule (400 mg) in the evening and 1 capsule (400 mg) before bedtime., Disp: 270 capsule, Rfl: 3 hydroCHLOROthiazide (HYDRODiuril) 25 MG tablet, Take 25 mg by mouth Daily, Disp: , Rfl: HYDROcodone-acetaminophen ([place]) 5-325 MG tablet, , Disp: , Rfl: hydrOXYzine pamoate (Vistaril) 25 MG capsule, TAKE 1 CAPSULE BY MOUTH TWICE PER DAY NEEDED, Disp: , Rfl: Januvia 100 MG tablet, Take 100 mg by mouth Daily, Disp: , Rfl: levothyroxine (Synthroid, Levoxyl) 50 MCG tablet, , Disp: , Rfl: lisinopril 2.5 MG tablet, , Disp: , Rfl: loperamide (Imodium) 2 MG capsule, take 1 capsule by mouth if needed AFTER EACH LOOSE STOOL NOT TO EXCEED 8 CAPSULES PER DAY, Disp: , Rfl: meloxicam (Mobic) 15 MG tablet, take 1 tablet by mouth once daily with food if needed for DISCOMFORT, Disp: , Rfl: montelukast (Singulair) 10 MG tablet, , Disp: , Rfl: nitrofurantoin, macrocrystal-monohydrate, (Macrobid) 100 MG capsule, TAKE 1 CAPSULE BY MOUTH EVERY 12 HOURS WITH FOOD, Disp: , Rfl: omeprazole (PriLOSEC) [address] capsule, , Disp: , Rfl: ondansetron (Zofran) 4 MG tablet, , Disp: , Rfl: oxybutynin XL (Ditropan-XL) 10 MG 24 hr tablet, , Disp: , Rfl: Ozempic, 1 MG/DOSE, 4 MG/3ML solution pen-injector, INJECT 1 UNITS DOSE SUBCUTANEOUSLY ON TUESDAY OF EACH WEEK, Disp: , Rfl: pseudoephedrine ER (Sudafed-12 Hour) 120 MG 12 hr tablet, , Disp: , Rfl: QUEtiapine (SEROquel) 100 MG tablet, , Disp: , Rfl: sertraline (Zoloft) 100 MG tablet, , Disp: , Rfl: SITagliptin (Januvia) 50 MG tablet, Take 100 mg by mouth in the morning., Disp: , Rfl: traZODone (Desyrel) 50 MG tablet, Take 50 mg by mouth at bedtime., Disp: , Rfl: Trulicity 0.75 MG/0.5ML solution auto-injector, INJECT 0.5ml SUBCUTANEOUSLY (UNDER THE SKIN) ONCE A WEEK, Disp: , Rfl: Turmeric powder, as directed, Disp: , Rfl: Allergies Metformin, Loratadine, Methylprednisolone, and Oxycodone Past Surgical History Past Surgical History: Procedure Laterality Date CHOLECYSTECTOMY OTHER SURGICAL HISTORY 02/06/2021 Neurostimulator for the bladder - Free-lance.rutronic device placed WISDOM TOOTH EXTRACTION WRIST SURGERY excision of cyst Family History Family History Problem Relation Name Age of Onset Hypertension Father Jose L Feldman Hyperlipidemia Father Jose L Feldman Heart disease Father Jose L Feldman Emphysema Father Jose L Feldman Asthma Father Jose L Feldman Bipolar disorder Sister Bipolar disorder Daughter Diabetes Mother's Sister Lor Ferguson Objective General Examination: GENERAL EXAMINATION: alert and oriented. Pleasant disposition. Wearing AOV shoes with functional orthoses. Vascular: DORSALIS PEDIS PULSE: 2/4, bilaterally. POSTERIOR TIBIAL PULSE: 2/4, bilaterally. TEMPERATURE GRADIENT: warm to warm. EDEMA: symmetrical mild non-pitting edema bilateral ankles. CAPILLARY FILLING TIME(sec): capillary fill intact bilateral digits less than 3 secs. Neurologic: TINELS SIGN: negative along the tarsal canal. SHARP SENSATION: tactile and light touch sensation intact. SEMMES-GILL 5.07 MONOFILAMENT: intact localization all points plantarly. Dermatologic: SKIN FINDINGS: intact. Skin turgor is otherwise good. HYPERTROPHIC LESION: no forefoot or digital keratotic pressure lesions are noted. INGROWN NAIL PATHOLOGY: Bilateral great toes: mildly dystrophic nail plate; the medial and lateral margins are incurvated/cryptotic, tender, mildly inflamed (blanchable), without swelling, bleeding or drainage. INTERDIGITAL MACERATION: clean, dry, non-inflamed. ULCER: no sign of ulceration or open wound. SKIN PATHOLOGY: texture, turgor, hair growth, within normal limits. Orthopedic: FOOT MORPHOLOGY: stance assessment: Symmetrical, fairly stable rectus foot alignment. JOINT RANGE OF MOTION: maintains functional ankle, subtalar, midtarsal and MTP joint range of motion. MUSCLE STRENGTH: no focal deficits. FOCUSED EXAM RIGHT FOOT: Moderate-fairly sharp point tenderness metatarsal-cuboid joint; without appreciable swelling, warmth or discoloration. Styloid process proper minimally tender. Cuboid groove and peroneal sheath non-tender. Mild tenderness over the bifurcate ligament. Metatarsal shafts and MTP joints non-tender. Radiology: Radiographs: 3 views right foot: Weight-bearing: DP, oblique, lateral: 07/20/2024: Unremarkable for fracture or stress fracture changes. Unremarkable for acute osseous or joint pathology. Assessment/Plan 1. Recalcitrant metatarsal-cuboid joint capsulitis right foot; subsequent to sprain or strain injury mid March of 2024. 2. Type II diabetes. 3. Medical comorbidities. 4. Polypharmacy. Plan: Review of clinical and x-ray findings, differential diagnosis, suspected etiology and contributing/aggravating factors, treatment strategy, rationale and objectives. Prednisone taper dose as noted. Supportive strapping right foot 5-7 days. Bolster lateral wedge modification of right functional orthotic. Patient noted distinct comfort and relief upon leaving the clinic. Procedure: This note was created with the assistance of a speech recognition program. While intending to generate a timely document that accurately reflects the content of the visit, no guarantee can be provided that every grammatical or spelling mistake has been or will be identified or corrected. Thank you for your understanding. Laurent Sierra DPM documented in this encounter [facility] 07-20-2024 Instructions Laurent Sierra DPM - 07/20/2024 9:30 AM EDT As noted documented in this encounter [facility] 07-18-2024 History of Presen t illness Narrative Images from the original note were not included. Subjective Patient ID: Nadir Hendrickson is a 38 y.o. female who presents for DM Foot Care (Presents for nail. Thinks she may have twisted right ankle, happened maybe in May or March, still hurts. Did not seek any medical txt at the time. States it sometimes swells, no xrays. PCP: Lizbeth ORTEGA 05/03/24, A1C: 2.5, BS: n/a, SS: 7.5EE). HPI HPI Chief complaint: Painful ingrown toenail deformity bilateral great toes; again impacting her ability to wear most any shoe comfortably. Problematic/symptomatic over the past several weeks or so. Denies redness, swelling, bleeding or drainage. Attempts at self-care are difficult, ineffective and not practical; increasing risk exposure. Family members unable to provide effective care. Palliative care measures have provided favorable transient symptom relief; patient remains well satisfied. Risk factors: Medical comorbidities. Type II diabetes. Polypharmacy. Toenail deformity. Digital and/or shoe trauma and related complications. Medications Current Outpatient Medications: Apple Cider Vinegar 188 MG capsule, Apple Cider Vinegar, Disp: , Rfl: busPIRone (Buspar) 15 MG tablet, Take 15 mg by mouth Daily, Disp: , Rfl: Calcium Citrate-Vitamin D (Calcium + D) 315-5 MG-MCG tablet, Calcium + D, Disp: , Rfl: cetirizine (ZyrTEC) 10 MG tablet, , Disp: , Rfl: gabapentin (Neurontin) 400 MG capsule, Take 1 capsule (400 mg) by mouth in the morning and 1 capsule (400 mg) in the evening and 1 capsule (400 mg) before bedtime., Disp: 270 capsule, Rfl: 3 hydroCHLOROthiazide (HYDRODiuril) 25 MG tablet, Take 25 mg by mouth Daily, Disp: , Rfl: HYDROcodone-acetaminophen ([place]) 5-325 MG tablet, , Disp: , Rfl: hydrOXYzine pamoate (Vistaril) 25 MG capsule, TAKE 1 CAPSULE BY MOUTH TWICE PER DAY NEEDED, Disp: , Rfl: Januvia 100 MG tablet, Take 100 mg by mouth Daily, Disp: , Rfl: levothyroxine (Synthroid, Levoxyl) 50 MCG tablet, , Disp: , Rfl: lisinopril 2.5 MG tablet, , Disp: , Rfl: loperamide (Imodium) 2 MG capsule, take 1 capsule by mouth if needed AFTER EACH LOOSE STOOL NOT TO EXCEED 8 CAPSULES PER DAY, Disp: , Rfl: meloxicam (Mobic) 15 MG tablet, take 1 tablet by mouth once daily with food if needed for DISCOMFORT, Disp: , Rfl: montelukast (Singulair) 10 MG tablet, , Disp: , Rfl: omeprazole (PriLOSEC) [address] capsule, , Disp: , Rfl: ondansetron (Zofran) 4 MG tablet, , Disp: , Rfl: oxybutynin XL (Ditropan-XL) 10 MG 24 hr tablet, , Disp: , Rfl: Ozempic, 1 MG/DOSE, 4 MG/3ML solution pen-injector, INJECT 1 UNITS DOSE SUBCUTANEOUSLY ON TUESDAY OF EACH WEEK, Disp: , Rfl: pseudoephedrine ER (Sudafed-12 Hour) 120 MG 12 hr tablet, , Disp: , Rfl: QUEtiapine (SEROquel) 100 MG tablet, , Disp: , Rfl: sertraline (Zoloft) 100 MG tablet, , Disp: , Rfl: SITagliptin (Januvia) 50 MG tablet, Take 100 mg by mouth in the morning., Disp: , Rfl: traZODone (Desyrel) 50 MG tablet, Take 50 mg by mouth at bedtime., Disp: , Rfl: Trulicity 0.75 MG/0.5ML solution auto-injector, INJECT 0.5ml SUBCUTANEOUSLY (UNDER THE SKIN) ONCE A WEEK, Disp: , Rfl: Turmeric powder, as directed, Disp: , Rfl: nitrofurantoin, macrocrystal-monohydrate, (Macrobid) 100 MG capsule, TAKE 1 CAPSULE BY MOUTH EVERY 12 HOURS WITH FOOD, Disp: , Rfl: Allergies Metformin, Loratadine, Methylprednisolone, and Oxycodone Past Surgical History Past Surgical History: Procedure Laterality Date CHOLECYSTECTOMY OTHER SURGICAL HISTORY 02/06/2021 Neurostimulator for the bladder - Medtronic device placed WISDOM TOOTH EXTRACTION WRIST SURGERY excision of cyst Family History Family History Problem Relation Name Age of Onset Hypertension Father Jose L Feldman Hyperlipidemia Father Jose L Feldman Heart disease Father Jose L Feldman Emphysema Father Jose L Cancino Francia Asthma Father Jose L Feldman Bipolar disorder Sister Bipolar disorder Daughter Diabetes Mother's Sister Lor Ferguson Objective General Examination: GENERAL EXAMINATION: alert and oriented. Pleasant disposition. Wearing AOV shoes with functional orthoses. Vascular: DORSALIS PEDIS PULSE: 2/4, bilaterally. POSTERIOR TIBIAL PULSE: 2/4, bilaterally. TEMPERATURE GRADIENT: warm to warm. EDEMA: symmetrical mild non-pitting edema bilateral ankles. CAPILLARY FILLING TIME(sec): capillary fill intact bilateral digits less than 3 secs. Neurologic: TINELS SIGN: negative along the tarsal canal. SHARP SENSATION: tactile and light touch sensation intact. SEMMES-GILL 5.07 MONOFILAMENT: intact localization all points plantarly. Dermatologic: SKIN FINDINGS: intact. Skin turgor is otherwise good. HYPERTROPHIC LESION: no forefoot or digital keratotic pressure lesions are noted. INGROWN NAIL PATHOLOGY: Bilateral great toes: mildly dystrophic nail plate; the medial and lateral margins are incurvated/cryptotic, tender, mildly inflamed (blanchable), without swelling, bleeding or drainage. INTERDIGITAL MACERATION: clean, dry, non-inflamed. ULCER: no sign of ulceration or open wound. SKIN PATHOLOGY: texture, turgor, hair growth, within normal limits. Orthopedic: FOOT MORPHOLOGY: stance assessment: Symmetrical, fairly stable rectus foot alignment. JOINT RANGE OF MOTION: maintains functional ankle, subtalar, midtarsal and MTP joint range of motion. MUSCLE STRENGTH: no focal deficits. Radiology: Assessment/Plan 1. Symptomatic onychocryptosis bilateral great toes. 2. Type II diabetes. 3. Medical comorbidities. 4. Polypharmacy. Plan: Notes: patient remains well satisfied with a conservative and palliative care approach; providing favorable symptomatic relief. Instructions to continue cuticle massage as able to do so. Diabetic education and assessment. Encourage compliance with supportive footwear, functional orthoses and stretching exercises. Discourage any unshod walking or weightbearing activity. Procedure: Toenail Debridement: Aseptic technique: power/manual instrumentation: onychodebridement length and thickness, curretage of offending crypotic margins, bill-ungual debris, providing effective pressure and symptom relief, reducing shoe and digital trauma. This note was created with the assistance of a speech recognition program. While intending to generate a timely document that accurately reflects the content of the visit, no guarantee can be provided that every grammatical or spelling mistake has been or will be identified or corrected. Thank you for your understanding. Laurent Sierra DPM documented in this encounter [facility] 07-18-2024 Instructions Laurent Sierra DPM - 07/18/2024 2:15 PM EDT As noted documented in this encounter [facility] 12-12-2023 History of Presen t illness Narrative Images from the original note were not included. [address] [place] [id number] Patient: Nadir Hendrickson Date of : 1985 Encounter Date: [...] PM 03/22/2022 8:25 PM 04/11/2023 9:00 AM Brinklow Sleepiness Scale Sitting and Reading 2 0 [...] Katherine Doss MD Pulmonary and Sleep Medicine [facility] Past Medical, Family, and Social [...] Alcohol Use No documented in this encounter [facility] 12-12-2023 Instructions Katherine Doss MD - 12/12/2023 12:15 PM EDT 1. Dentist to fit for oral mandibular advancement device (OMAD) 2. Continue to work on weight loss 3. Discussion about inspire, not a candidate at this time 4. Follow up in 6 months documented in this encounter [facility] Evaluation note Diagnosis Moderate persistent asthma, unspecified whether complicated [facility] Diagnosis MUKESH (obstructive sleep apnea)- Primary Obstructive sleep apnea (adult) (pediatric) [facility] Diagnosis Dystrophic nail- Primary Other specified disease of nail Onychocryptosis Ingrowing nail Pain around toenail, right foot Pain around toenail, left foot documented in this encounter [facility] HealthcareEvaluation note* Diagnosis Capsulitis of right foot- Primary Sprain of ligament of tarsometatarsal joint of right foot, sequela Pain in joint of right foot Difficulty walking Difficulty in walking documented in this encounter [facility] HealthcareEvaluation note* Diagnosis MUKESH (obstructive sleep apnea)- Primary Obstructive sleep apnea (adult) (pediatric) documented in this encounter [facility] SystemEvaluation note* Diagnosis Moderate persistent asthma, unspecified whether complicated documented in this encounter [facility] SystemEvaluation note* Diagnosis Paresthesia Disturbance of skin sensation documented in this encounter [facility] HealthcareEvaluation note* Diagnosis Paresthesia- Primary Disturbance of skin sensation documented in this encounter [facility] HealthcareInstructionsNot on filedocumented in this encounter[facility] SystemInstructionsNot on filedocumented in this encounterProSalem [facility] SystemInstructionsNot on filedocumented in this encounterProSalem [facility] SystemInstructionsNot on filedocumented in this [facility] Dis[facility] Instructions * Instructions* uSze Rodrigues RN - 03/31/2020 -urinate every 2.5 to 3 hrs -Call Dr Ellis with any questions or concerns documented in this encounter* Instructions* Kolby Ellis MD - 12/22/2020 -My office will contact you in the next 2-3 business days to schedule a follow- up appointment. If you do not hear from my office in a timely manner please feel free to call us at [phone]. Follow-up should be scheduled for 1 week. -Regular Diet. -Resume all home medications. -Do not operative heavy machinery if you are taking Percocet (oxycodone), [place]/Vicodin (hydrocodone), Tylenol #3 (codeine), or Ultram (tramadol). [...] short walks are important. Best, Dr. Kolby Ellis MD documented in this encounter Advance Directives No Advanced Directives Records FoundDocuments on File Type Date Recorded Patient Launch Steward Expl anation Advance Directives and Living Will Power of Solutions Consultant Documents on File Type Date Recorded Patient Launch Steward Expl anation Advance Directives and Living Will Power of Solutions Consultant Documents on File Type Date Recorded Patient Launch Steward Expl anation ACP-Advance Directive ACP-Power of Solutions Consultant Summary Purpose Family History No Family History [...] incontinence in female DX URINARY INCONTINENCE Procedures MS COMPLEX CYSTOMETROGRAM VOIDING PRESSURE STUDIES URODNYAMICS oKlby Ellis MD [facility] [address] [address] [facility] Provasculon Status Reason Specialty Diagnoses / Procedures Re ferred By Contact Referred To Contact Diagnoses Urinary incontinence DX URINARY INCONTINENCE Procedures MS INC IMPLTJ NEUROSTIMULATOR ELTRD SACRAL NERVE INTERSTIM STAGE ONE - Kolby Foote MD [facility] [address] [address] [facility] Provasculon Reason Comments Med Refill Reason Comments Follow-up Sleep Apnea DME: MSCNot using PA P machineSampled Wisp Fit Pack at last visit Reason Comments DM Foot Care Presents for nail. T los she may have twisted right ankle, happened maybe in May or March, still hurts. Did not seek any medical txt at the time. States it sometimes swells, no xrays. PCP: Lizbeth Alamo LV 05/03/24, A1C: 2.5, BS: n/a, SS: 7.5EE Reason Comments Foot Pain Established pt prese nts today for x-rays for right ankle pain. Reason Comments Follow-up ENT: did not follow up withOMAD: having issues- seeing dentist for adjustments Sleep Apnea DME:Arshad Reason Onset Date Comments Sleep Lab 08/14/2024 PSG Order Reason Onset Date Comments Sleep Lab 08/15/2024 HST Reason Comments Polyneuropathy INFORMATION SOURCE (unrecogn ized section and content) DATE CREATED AUTHOR 07/07/2020 [facility] DATE CREATED AUTHOR AUTHOR'S ORGANIZ ATION 08/13/2020 [facility] DATE CREATED AUTHOR AUTHOR'S ORGANIZ ATION 12/22/2020 [facility] DATE CREATED AUTHOR AUTHOR'S ORGANIZ ATION 01/06/2021 [facility] DATE CREATED AUTHOR AUTHOR'S ORGANIZ ATION 09/11/2021 [facility] DATE CREATED AUTHOR AUTHOR'S ORGANIZ ATION 02/16/2023 [facility] DATE CREATED AUTHOR AUTHOR'S ORGANIZ ATION 03/07/2024 [facility] DATE CREATED AUTHOR AUTHOR'S ORGANIZ ATION 08/15/2024 [facility] DATE CREATED AUTHOR AUTHOR'S ORGANIZ ATION 09/12/2024 [facility] EPIC Ordered Prescriptions (unrec ognized [...] Care Teams (unrecognized sec tion and content) Lifestyle Coordinator Relationship Specialty Start Date End Date Ingrid Culver, HOT PATCHER-STREET CONTRACTOR [address] [id number] [place] [id number] PCP - General Family Medicine 10/22/19 Lifestyle Coordinator Relationship Specialty Start Date End Date Lizbeth Snyder APRN-STATE APPELLATE CLERK [facility] [address] [facility] [place] [address] PCP - General 12/10/23 Lifestyle Coordinator Relationship Specialty Start Date End Date Lizbeth Snyder NP [address] [place] [address], [place] [address] PCP - General Family Medicine 03/14/24 Ingrid Culver MD [address] [place] [address] Referring Physician Family Medicine 08/17/23 Lifestyle Coordinator Relationship Specialty Start Date End Date Lizbeth Snyder NP [address] [place] [address] [place] [address] PCP - General Family Medicine 03/14/24 Ingrid Culver MD [address] [place] [address] Referring Physician Family Medicine 08/17/23 Lifestyle Coordinator Relationship Specialty Start Date End Date Lizbeth Snyder NP [address] [place] [address] PCP - General Family Medicine 03/14/24 Ingrid Culver [place] [address] Referring Physician Family Medicine 08/17/23 Lifestyle Coordinator Relationship Specialty Start Date End Date Lizbeth Snyder NP [address] [place] [address] PCP - General Family Medicine 03/14/24 Ingrid Culver MD [address] [place] [address] Referring Physician Family Medicine 08/17/23 Lifestyle Coordinator Relationship Specialty Start Date End Date Lizbeth Snyder NP [address] [place] [address] PCP - General Family Medicine 03/14/24 Ingrid Culver MD [address] [place] [address] Referring Physician Family Medicine 08/17/23 Lifestyle Coordinator Relationship Specialty Start Date End Date Lizbeth Snyder APRN-NP [address] [place] [address] PCP - General 12/10/23 Lifestyle Coordinator Relationship Specialty Start Date End Date Lizbeth Snyder APRN-NP [address] [place] [address] PCP - General 12/10/23 Lifestyle Coordinator Relationship Specialty Start Date End Date Lizbeth Snyder APRN-NP [address] [place] [address] PCP - General 12/10/23 Lifestyle Coordinator Relationship Specialty Start Date End Date Lizbeth Snyder APRN-STATE APPELLATE CLERK [address] [facility] [place] [address] PCP - General 12/10/23 Lifestyle Coordinator Relationship Specialty Start Date End Date Lizbeth Snyder NP [address] [place] [address] [place] [address] PCP - General Family Medicine 03/14/24 Ingrid Culver MD [address] [place] [address] Referring Physician Family Medicine 08/17/23 Laurent Ragland MD [address] [place] [address] Referring Physician Neurology 09/10/24 Yamlie Lofton PA [address] [place] [address] Physician Front Maker Neurology 09/10/24 Lifestyle Coordinator Relationship Specialty Start Date End Date Lizbeth Snyder NP [address] [place] [address] [place] [address] PCP - General Family Medicine 03/14/24 Ingrid Culver MD [address] [place] [address] Referring Physician Family Medicine 08/17/23 Laurent Ragland MD [address] [place] [address] Referring Physician Neurology 09/10/24 Yamile Lofton PA [address] [place] [address] Physician Front Maker Neurology 09/10/24 Lifestyle Coordinator Relationship Specialty Start Date End Date Lizbeth Snyder NP [address] [facility] [place] [address] PCP - General Family Medicine 03/14/24 Ingrid Culver MD [address] [facility] [address] Referring Physician Family Medicine 08/17/23 Laurent Ragland MD [address] [place] [id number] Referring Physician Neurology 09/10/24 Yamile Lofton PA [address] [place] [address] Physician Front Maker Neurology 09/10/24 FOR RECORDS PERTAINING TO PATIENTS WHO ARE [...] BE BASED ON THE PRIMARY CLINICAL RECORDS. [employer] [facility]. provides no warranty or guarantee of the accuracy or completeness of information in this document.
[2024-09-14 11:40] LABS: Internal Control Within Normal Limits; Strep A Antigen Screen Positive
--- NOTE | 2024-09-14 14:31 | ED.URI1 ---
HPI - URI/Sore Throat General Chief Complaint: Upper Respiratory Infection Stated Complaint: SORE THROAT Time Seen by Provider: 09/14/24 10:52 History of Present Illness HPI Narrative: The patient has been having sore throat at least for the last 7 to 10 days she initially was treated with steroids as well as supportive care but over the last few days she noted that it is getting worse as she is having more pain She denies any fever or chills She denies any other concern and she has not been exposed to anybody with similar symptoms Related Data Previous Rx's ?Medication ?Instructions ?Recorded silver sulfadiazine 1 % topical 1 applic topical BID 5 days #25 05/18/23 cream (Silvadene) grams azithromycin 250 mg tablet See Rx Instructions PO .COMPLEX #6 09/14/24 (Zithromax Z-Sebastián) tabs Allergies Allergy/AdvReac Type Severity Reaction Status Date / Time metformin AdvReac Mild Diarrhea Uncoded 05/18/23 17:04 Review of Systems ROS Status of ROS 10 or more systems reviewed and unremarkable except as noted in history and below PFSH [facility] Social History Smoking status: Never smoker Little interest or pleasure in doing things: not at all Feeling down, depressed, or hopeless: not at all Exam Narrative Exam Narrative: Nurses notes and vital signs reviewed and patient is not hypoxic. General: Well-appearing and in no apparent distress. Skin: Warm, dry, no pallor noted. No rash. Head: Normocephalic, atraumatic. Neck: Supple, non-tender. Eye: Pupils are equal, round and EOMI. No scleral icterus. Ears, Nose, Mouth, and Throat: Bilateral tonsillar erythema noted with no compromise of the airway the uvula is in the middle and there is no exudate noted but injected bilateral tonsils with mild enlargement Respiratory: No accessory muscle use or respiratory distress. Lungs are clear to auscultation, no wheezing, rales or rhonchi Chest Wall: no tenderness Back: No midline thoracic or lumbar vertebral tenderness. No CVA tenderness Musculoskeletal: normal ROM, no calf or popliteal tenderness, no lower extremity edema/swelling GI: Abdomen is soft, non-distended. Normal bowel sounds. No masses appreciated. No tenderness to palpation. No rebound, guarding, or rigidity noted. Neurological: A&O x4. No cranial nerve dysfunction observed. No truncal ataxia. Moves all extremities. Sensation intact. Psychiatric: Cooperative and interactive. Normal mood and affect. Constitutional Vital Signs, click to edit/add: Last Vital Signs Temp 98.1 F 09/14/24 10:55 Pulse 83 09/14/24 10:55 Resp 18 09/14/24 10:55 BP 135/89 09/14/24 10:55 Pulse Ox 96 09/14/24 10:55 O2 Del Method Room Air 09/14/24 10:55 Course Vital Signs Vital signs: Vital Signs Temperature 98.1 F 09/14/24 10:55 Pulse Rate 83 09/14/24 10:55 Respiratory Rate 18 09/14/24 10:55 Blood Pressure 135/89 09/14/24 10:55 Pulse Oximetry 96 09/14/24 10:55 Oxygen Delivery Method Room Air 09/14/24 10:55 Temperature 98.1 F 09/14/24 10:55 Pulse Rate 83 09/14/24 10:55 Respiratory Rate 18 09/14/24 10:55 Blood Pressure 135/89 09/14/24 10:55 Pulse Oximetry 96 09/14/24 10:55 Oxygen Delivery Method Room Air 09/14/24 10:55 MDM - URI/Sore Throat MDM Narrative Medical decision making narrative: The patient presentation is mostly secondary to strep infection and she was tested positive for strep the patient will be treated with the azithromycin as she have allergy to penicillin The patient is to follow up with primary care physician in next 2-3 days or to return to the emergency department should any of the signs or symptoms worsen or new symptoms develop. The patient agrees with the following Diagnosis and Treatment plan and the patient will be discharged home. Lab Data Labs: Lab Results 09/14/24 Range/Units 10:36 Streptococcus Screen Positive A Discharge Plan Discharge Chief Complaint: Upper Respiratory Infection Clinical Impression: Strep pharyngitis Patient Disposition: Home, Self-Care Time of Disposition Decision: 12:07 Condition: Good Prescriptions / Home Meds: New azithromycin [Zithromax Z-Sebastián] 250 mg tablet See Rx Instructions .ROUTE .COMPLEX Qty: 6 0RF Rx Instructions: For 250 mg dose pack: take 500 mg today (day 1), then 250 mg for 4 days (days 2-5) No Action silver sulfadiazine [Silvadene] 1 % cream 1 applic topical BID 5 Days Qty: 25 0RF Rx Instructions: apply a 1.5 mm thickness Print Language: [place] Instructions: Pharyngitis (ED), Strep Throat (DC) Referrals: CHANDANA OTT [Primary Care Provider] - 1 week Discharge Date/Time: 09/14/24 12:11
== END 2024-09-14 12:11 | disposition home or self-care (01) ==
PROVIDERS: Emergency Provider Emergency Medicine; PCP Nurse Practitioner Family
DX: J02.0 Streptococcal pharyngitis (principal)
CPT/HCPCS: 87880; 99283

== ENCOUNTER 2024-11-30 19:20 | Emergency (ER) | payer OTHER, SELFPAY ==
--- OUTSIDE RECORDS SUMMARY | 2024-11-30 19:26 | XMS_ITS | CCD ---
Author Organization [facility] CliniSys[facility] Care Team Providers Care Roller Hand Name Role Phone Ingrid Culver Primary Care Provider [phone] INGRID CULVER Primary Care Unavailable KOLBY ELLIS Attending Unavailable RHONDA, KOLBY Admitting Unavailable RHONDA, KOLBY Admitting Unavailable INGRID CULVER Primary Care Unavailable KOLBY ELLIS Attending Unavailable RHONDA, KOLBY Admitting Unavailable KOLBY ELLIS Attending Unavailable INGRID CULVER Primary Care Unavailable GEOVANNI CUEVAS Admitting Unavailable VIANCA BLANCHARD Unavailable DR DIONICIO BARBOUR Primary Care Unavailable GEOVANNI CUEVAS Attending Unavailable ANDREINA DHILLON Consulting Unavailable GEOVANNI CUEVAS Consulting Unavailable LUISA RANGEL Unavailable LIZBETH SNYDER Referring Unavailable LIZBETH SNYDER Primary Care Unavailable Ingrid Culver MD Unavailable Claudio GEOMETRY PROFESSOR, Lizbeth Fajardo Primary Care Provider Claudio DISTRIBUTION WAREHOUSE MANAGER-GEOMETRY PROFESSOR, Lizbeth Primary Guille [facility] er KATHERINE DOSS Attending Unavailable INGRID CULVER Referring LIZBETH Lopez Primary Care Unavailable INGRID CULVER Referring [place] labLIZBETH Linares Primary Care Unavailable DWAYNE SENIOR Attending Unavailable LIZBETH SNYDER Referring Unavailable LIZBETH [...] SIERRA Referring Unavailable YAMILE LOFTON Attending Unavailable KATHERINE DOSS Referring Unavailable LIZBETH SNYDER Primary Care Unavailable Ingrid Woodard Primary Care Provider Allergies Allergy Classification Reported Allergen(s) Allergy Type Date of Onset Reaction(s) Facility (20 sources) Loratadine; Translations: [LORATADINE] Drug Allergy 07-20-20 17 Palpitations [place] (20 sources) methylPREDNISolone; Translations: [METHYLPREDNISOLONE] Drug Allergy 04-09-20 19 Hives, Unknown [place] (1 source) Loratadine Drug Allergy 03-20-20 17 [facility] Repository (4 sources) metFORMIN; Translations: [METFORMIN] Drug Allergy 02-14-20 23 [facility] (1 source) methylPREDNISolone Drug Allergy [facility] Repository (20 sources) oxyCODONE; Translations: [OXYCODONE] Drug Allergy 07-22-20 21 Rash, Unknown [facility] (10 sources) Loratadine Allergy to substance 07-20-20 17 Palpitations, Unknown [facility] (20 sources) metFORMIN Drug Allergy 04-28-20 23 Unknown, Diarrhea [facility] Medications Current Medications Medication Drug Class(es) Dates Sig (Normalized) Sig (Original) acetaminophen 325 mg / HYDROcodone bitartrate 5 mg oral tablet (10 sources) Opioid Agonist HYDROcodone-acet am inophen ([facility]) 5-325 MG tablet Active [id number] 200 actuat albuterol 0.09 mg/actuat metered dose inhaler (20 sources) beta2-Adrenergic Agonist Start: 11-11-2022 End: 09-04-2024 [...] Vinegar Active ARIPiprazole 10 mg oral tablet (18 sources) Atypical Antipsychotic Start: 05-19-20 take 1 tablet by mouth in the morning ARIPiprazole (ABILIFY) 10 mg tablet Take 1 tablet (10 mg total) by mouth in the morning. 05/19/2022 Active atorvastatin 20 mg oral tablet (20 sources) HMG-CoA Reductase Inhibitor Start: 12-10-19 atorvastatin (LIPITOR) 20 mg tablet 12/09/2022 Active take 1 tablet by mouth once carlos y atorvastatin (LIPITOR) 20 MG tablet Take 20 mg by mouth daily 0 Active 60 actuat budesonide 0.16 mg/actuat / formoterol fumarate 0.0045 mg/actuat metered dose inhaler (20 sources) Corticosteroid, beta2-Adrenergic Agonist Start: 12-10-2022 End: 10-04-2024 take 2 puff(s) by mouth twice daily SYMBICORT 160-4.5 mcg/actuation inhaler Indications: Moderate persistent asthma, unspecified whether complicated INHALE 2 PUFFS BY MOUTH TWICE DAILY 10.2 g 10 10/04/2024 Active Budesonide-Formoter ol Fumarate (SYMBICORT IN) (3 [...] 12-23-2020 lactated ringe rs infusion Start: 12-23-2020 aydee hensley rs infusion calcium citrate 1500 mg / [...] oral tablet (20 sources) Histamine-1 Receptor Antagonist take 1 tablet by mouth once daily cetirizine (ZyrTEC) 10 mg tablet 1 tablet Orally Once a day for 30 day(s) Active cholecalciferol 0.05 mg oral capsule (18 sources) Vitamin D Start: 2021 take 1 [...] 06/22/2024 Active famotidine 20 mg oral tablet (18 sources) Histamine-2 Receptor Antagonist Start: 2022 famotidine [...] mg capsule 1 capsule (300 mg total). Active hydroCHLOROthiazide 12.5 mg oral capsule (20 sources) Thiazide Diuretic take 1 capsule by mouth once daily in the morning hydroCHLOROthiazide (MICROZIDE) 12.5 mg capsule 1 capsule in the morning Orally Once a day for 30 day(s) Active take 1 tablet by mouth once carlos y hydroCHLOROthiazide (HYDRODiuril) 25 MG tablet Take 25 mg by mouth Daily Active hydrOXYzine pamoate 25 mg oral capsule (20 sources) Antihistamine Start: 07-21-2021 take 1 capsule by mouth three times daily as needed hydrOXYzine (VISTARIL) 25 mg capsule Take 1 capsule (25 mg total) by mouth 3 (three) times a day as needed. 07/21/2021 Active take 1 capsule by [facility] twice daily as needed hydrOXYzine pamoate (Vistaril) 25 MG capsule TAKE 1 CAPSULE BY MOUTH TWICE PER DAY NEEDED Active isopropyl alcohol 0.7 ml/ml medicated pad (18 sources) Start: 05-27-2020 EASY TOUCH ALCOHOL PREP PADS pads, medicated 05/27/2020 Active levothyroxine sodium 0.05 mg oral tablet (20 sources) l-Thyroxine take 1 tablet by mouth once daily in the morning levothyroxine (SYNTHROID, LEVOTHROID) 50 MCG tablet 1 tablet on an empty stomach in the morning Orally Once a day Active 10 ml lidocaine hydrochloride 10 mg/ml injection (1 source) Antiarrhythmic, Amide Local Anesthetic Start: 12-23-2020 End: 12-23-2020 lidocaine PF 1 % injection 1 mL lisinopril 2.5 mg oral tablet (20 sources) Angiotensin Converting Enzyme Inhibitor take 1 tablet by mouth once daily lisinopriL (PRINIVIL,ZESTRIL) 2.5 mg tablet 1 tablet Orally Once a day for 30 day(s) Active loperamide hydrochloride 2 mg oral capsule [...] mirabegron 50 mg extended release oral tablet (18 sources) beta3-Adrenergic Agonist Start: 11-13-19 22 take 1 tablet by mouth every twenty-four hours in the morning MYRBETRIQ 50 mg tablet extended release 24 hr Take 1 tablet (50 mg total) by mouth in the morning. 11/13/2021 Active montelukast 10 mg oral tablet (20 sources) Leukotriene Receptor Antagonist take 1 tablet by mouth once daily montelukast (SINGULAIR) 10 mg tablet Take 1 tablet (10 mg total) by mouth nightly. Active nitrofurantoin, macrocrystals 25 mg / nitrofurantoin, [...] mg extended release oral tablet (10 sources) alpha-Adrenergic Agonist pseudoephedrine ER (Sudafed-12 Hour) 120 MG 12 hr tablet Active QUEtiapine 100 mg oral tablet (13 sources) Atypical Antipsychotic Start: 06-02-2020 End: 12-12-2023 take 1 tablet by mouth once daily, then take 0.5 tablet by mouth once daily QUEtiapine (SEROquel) 100 mg tablet nightly. Takes 1 and a 1/2 tablets by mouth Daily 0 06/02/2020 Active sertraline 100 mg oral tablet (20 [...] mg total) by mouth in the morning. 09/21/2023 Active take 2 tablets by mouth [...] Active traZODone hydrochloride 50 mg oral tablet (20 sources) Serotonin Reuptake Inhibitor Start: 04-21-2023 take 1 tablet by mouth at bedtime traZODone (Desyrel) 50 MG tablet Take 50 mg by mouth at bedtime. 04/21/2023 Active Turmeric extract (10 sources) Turmeric powder as directed Active Problems Active Problems Problem Classification Problem Date Documented Date Episodic/Chronic Abdominal pain (4 sources) Unspecified abdominal pain; Translations: [UNSPECIFIED ABDOMINAL PAIN] Onset: 02-13-2023 Episodic Anxiety disorders (18 sources) Generalized anxiety disorder; Translations: [Generalized anxiety disorder] Onset: 07-29-2021 07-29-2021 Chronic Asthma (7 sources) Unspecified asthma, uncomplicated; Translations: [Moderate persistent asthma] Onset: 03-06-2024 10-02-2024 Chronic Chronic ulcer of skin (20 sources) Non-pressure chronic ulcer of right heel and midfoot limited to breakdown of skin; Translations: [Ulcer of heel and midfoot] Onset: 07-29-2021 07-29-2021 Chronic Contraceptive and procreative management (4 sources) Encounter for sterilization; Translations: [Sterilization requested] Onset: 03-06-2024 02-06-2024 Episodic Developmental disorders (20 sources) Developmental disorder of scholastic skills, unspecified; Translations: [Developmental academic disorder] Onset: 07-29-2021 07-29-2021 Chronic Diabetes mellitus with complications (3 sources) Type 2 diabetes mellitus with diabetic polyneuropathy; Translations: [Type 2 diabetes mellitus] Onset: 05-03-2019 03-06-2024 Chronic Diabetes mellitus without complication (18 sources) Type 2 diabetes mellitus; Translations: [Type 2 diabetes mellitus without complications] Onset: 05-03-2019 05-03-2019 Chronic E Codes: Fall (1 source) Unspecified fall, initial encounter; Translations: [UNSPECIFIED FALL INITIAL ENCOUNTER] Onset: 02-15-2023 Episodic Essential hypertension (20 sources) Essential (primary) hypertension; Translations: [Hypertensive disorder] Onset: 05-03-2019 05-03-2019 Chronic Menopausal disorders (1 source) Hormone replacement therapy; Translations: [HORMONE REPLACEMENT THERAPY] Onset: 02-15-2023 Episodic Miscellaneous mental health disorders (20 sources) Conversion disorder with seizures or convulsions; 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] Onset: 02-10-2022 02-10-2022 Chronic Mood disorders (20 sources) Major depressive disorder, recurrent, moderate; Translations: [Moderate recurrent major depression] Onset: 07-29-2021 07-29-2021 Chronic Other aftercare (1 source) Other termination clerk (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; Translations: [OTH ALF CURRENT DRUG THERAPY] Onset: 02-15-2023 Episodic Other [...] Episodic Other nutritional; endocrine; and metabolic disorders (1 source) Morbid (severe) obesity due to excess calories; Translations: [Morbid (severe) obesity due to excess calories] Onset: 02-06-2024 Chronic Other nutritional; endocrine; and metabolic disorders (17 sources) Morbid obesity; Translations: [Morbid (severe) obesity due to excess calories] Onset: 05-03-2019 02-06-2024 Chronic Other nutritional; endocrine; and metabolic disorders (3 sources) Severe obesity; Translations: [Morbid (severe) obesity due to excess calories] Onset: 05-03-2019 05-03-2019 Chronic Other skin disorders (1 source) Dystrophia unguium; Translations: [Nail dystrophy] 07-18-2024 Episodic Other skin disorders (1 source) Ingrowing nail; Translations: [Ingrowing nail] 07-18-2024 Episodic Residual codes; unclassified (4 sources) Obstructive sleep apnea syndrome; Translations: [Obstructive sleep apnea (adult) (pediatric)] 08-14-2024 Chronic Residual codes; unclassified (2 sources) Obstructive sleep apnea (adult) (pediatric); Translations: [Obstructive [...] Date Documented Da te Episodic/Chronic Mood disorders (18 sources) Mood disorders Onset: 09-11-2021 Resolved: 02-06-2024 02-06-2024 Other lower respiratory disease (1 source) Shortness of breath; Translations: [Shortness of breath] Onset: 05-03-2019 Episodic Other lower respiratory disease (20 sources) Dyspnea; Translations: [Shortness of breath] Onset: 05-03-2019 05-03-2019 Episodic Screening and history of mental health and substance abuse codes (1 source) Standardized adult depression screening tool completed ; Translations: [Encounter for screening for depression] 02-06-2024 Episodic Unclassified (18 sources) Onset: 02-01-2023 Resolved: 02-06-2024 02-06-2024 Results Test Name Value Interpretation Reference Range Facility XR Foot - right 3 [facility] Result: 3 vi ews right foot: Weight-bearing: DP, oblique, lateral: 07/20/2024: Unremarkable for acute osseous or joint pathology. Unremarkable for fracture or stress fracture changes. [facility] Radiology Study observation (narrative) [facility] POCT , urineon 060 Beta HCG ( test) Ql (U) Negative [facility] Internal Product Development Ecologist Check Completed and Passed Yes [employer] Interpretation and review of laboratory results [facility] CT ABD/PELVIS WO CONon 02-13 CT ABD/PELVIS [...] by: ANDREINA DHILLON Date: 2023-02-13 21:36 Normal [facility] CT LSPINE WO CONon [address] [facility] CON CT LUMBAR SPINE WITH OUT CONTRAST, [...] by: Kalli RANGEL Date: 2023-02-13 20:09 Normal [facility] XR RIBS RT PA Marco Antonio 3 XR RIBS RT PA CH EXAM: XR RIBS RT PA CH HISTORY: Pain COMPARISON: Chest x-ray 02/18/2020 TECHNIQUE: 5 view study FINDINGS: Right ribs show normal architecture. The right lung is well expanded. No pneumothorax. IMPRESSION: No evidence for acute right rib fracture. Electronically authenticated by: Kalli RANGEL Date: 2023-02-13 20:26 Normal [facility] [id number] 01-05-2021 SARS-CoV-2,Rapid Not Detected Normal NOTDET [facility] Comment on above: Result Comment: Rapid [...] management decisions. Fact sheet for Healthcare Providers: https://www.fda.gov/media/350462/download Fact sheet for Patients: https://www.fda.gov/media/086321/download Methodology: Isothermal Nucleic Acid Amplification Performed By: #### C OVRB #### [facility] [address] [place] [id number] Accounting Intern: Hussain Saldivar MD FLUORO FOR SURGICAL PROCEDUR ESon 12-22-2020 FLUORO FOR SURGICAL PROCEDURES Radiology exam is complete. No Radiologist dictation. Please follow up with ordering provider. Final result Normal [facility] Radiology exam is complete. No Radiologist dictation. Please follow up with ordering provider. [place] [place] Work Phone: HCG Screen, Bloodon 12-23-19 21 HCG Qn Negative Normal NEG [facility] Comment on above: Result Comment: Spec imens with hCG levels near the threshold of the test (25 mIU/mL) may give a negative or indeterminate result. In such cases, another test should be performed with a new specimen in 48-72 hours. If early is suspected clinically in this setting, correlation with quantitative serum b-hCG level is suggested. Performed By: #### H #### [facility] [address] [place] [address] Accounting Intern: Darian Knutson MD HCG, SERUM, QUALITATIVEon hCG Qual Negative NEGATIVE [employer] Phone: Comment on above: Specimens with hCG [...] [Mass/Vol] 89 mg/dL 65 - 105 mg/dL [employer] Phone: Glucose [Mass/Vol] 99 mg/dL 65 - 105 mg/dL [employer] Phone: Operative Reporton Operative Report MR#: [id number] [facility] Pt. Name: Nadir Hendrickson Room #: 0C Discharge Date: Birthdate: 1985 OPERATIVE REPORT DATE OF SURGERY: 10/09/2020 SURGEON: Tee Shahid M.D. PREOPERATIVE DIAGNOSIS: Triangular fibrocartilage complex tear, right wrist. POSTOPERATIVE DIAGNOSIS: Triangular fibrocartilage complex tear, right wrist. PROCEDURE: Arthroscopic examination and debridement of triangular fibrocartilage complex on the right wrist. VIOLIN TEACHER: Oracio Ibanez M.D. ANESTHESIA: Regional with an [...] Shahid M.D. Date Trans: 10/09/2020 11:19 A/porter [id number] cc: Ingrid Culver C.N.P. [address] [facility] [facility] [address] Normal [facility] POC GLUCOSE LABon 10-09-2020 Glucose [Mass/Vol] 100 mg/dL Normal 70-100 [facility] Comment on above: Performed By: #### 8 5499 #### [facility] [address] [facility] [place] [address], [facility] Glucose [Mass/Vol] 111 mg/dL High 70-100 [facility] Comment on above: Performed By: #### 8 5499 #### [facility] [address] [place] [address], [facility] Coding Summaryon 07-29-2020 Coding Summary CODING DATE: 020 [facility] STATUS: Home PAYOR: Medicaid HMO ADMIT DX: REASON FOR VISIT DX: R45.851 Suicidal ideations FINAL DX: PRINCIPAL: F32.9 Major depressive disorder, single episode, unspecified SECONDARY: R45.851 Suicidal ideations E11.9 Type 2 diabetes mellitus without complications I10 Essential (primary) hypertension Z79.84 MCC (current) use of oral hypoglycemic drugs PYMT PROC APC STAT DESCRIPTION DOCTOR NAME DATE NOTE: The code number assigned matches the documented diagnosis and / or procedure in the patient's chart. However, the narrative phrase printed from the coding software may appear abbreviated, or result in slightly different terminology. Coded By: Dante Villarreal' Date Saved: 07/29/2020 04:26 pm [facility] Coding Summary CODING DATE: 020 [facility] STATUS: Home PAYOR: Medicaid HMO ADMIT DX: REASON FOR VISIT DX: R45.851 Suicidal ideations FINAL DX: PRINCIPAL: F32.9 Major depressive disorder, single episode, unspecified SECONDARY: R45.851 Suicidal ideations E11.9 Type 2 diabetes mellitus without complications I10 Essential (primary) hypertension Z79.84 MCC (current) use of oral hypoglycemic drugs PYMT PROC APC STAT DESCRIPTION DOCTOR NAME DATE NOTE: The code number assigned matches the documented diagnosis and / or procedure in the patient's chart. However, the narrative phrase printed from the coding software may appear abbreviated, or result in slightly different terminology. Coded By: Tammy Villarreal Date Saved: 07/29/2020 04:24 pm [facility] .Auto Diff 1on 07-26-2020 Auto [place] % 7 % Normal 1-12 [facility] Comment on above: Performed By: #### 7 950531, 0995384, 9909230, 60562181, [id number], [id number], 515229992, [id number] #### [facility] (DEFAULT) [address] [place] [address] Baso Abs# 0.0 x10 Normal 0.0-0.2 [facility] Comment on above: Performed By: #### 7 152723, 9005738, 4913216, 35818822, 5309800432, 3551298910, 561256104, [id number] #### [facility] (DEFAULT) [address] [place] [address] Basophils/100 WBC (Bld) 0.3 % Normal 0.2-2.0 [facility] Comment on above: Performed By: #### 7 867459, 9714373, 3000402, 38968901, 7545781562, 7168188323, 623845335, [id number] #### [facility] (DEFAULT) [address] [place] [address] Eos Abs# 0.1 x10 Normal 0.0-0.4 [facility] Comment on above: Performed By: #### 7 099765, 6121597, 4348256, 05378747, 5310411334, 0500220935, 818206927, [id number] #### [facility] (DEFAULT) [address] [place] [address] Eosinophils/100 WBC (Bld) 1.7 % Normal 0.9-4.0 [facility] Comment on above: Performed By: #### 7 810340, 6861485, 7132414, 28921568, 8734659438, 1784575251, 152417726, 3508143748 #### [facility] (DEFAULT) [address] [place] [address] Lymphocytes (Bld) [#/Vol] 2.0 x10 Normal 1.3-2.9 [facility] Comment on above: Performed By: #### 7 710940, 2559803, 5812118, 77465782, 6706800615, 5506851319, 566525454, 0031667960 #### [facility] (DEFAULT) [address] [place] [address] Lymphocytes/100 WBC (Bld) 26 % Normal 14-48 [facility] Comment on above: Performed By: #### 7 255750, 2282173, 3979376, 86201944, 3804492311, 8106896049, 892428209, 7087664620 #### [facility] (DEFAULT) [address] [place] [address] Weston Abs# 0.5 x10 Normal 0.0-0.8 [facility] Comment on above: Performed By: #### 7 446463, 4409206, 8886937, 81740040, 3537389658, 6572976195, 595047821, 1677769664 #### [facility] (DEFAULT) [address] [place] [address] Neut Abs# 5.1 x10 Normal 1.5-9.2 [facility] Comment on above: Performed By: #### 7 355564, 6479649, 7517376, 16430572, 9131487494, 2650272091, 727593059, 0274710915 #### [facility] (DEFAULT) [address] [place] [address] Neutrophils/100 WBC (Bld) 65 % Normal 44-88 [facility] Comment on above: Performed By: #### 7 168214, 5035228, 7665231, 87388808, 9754067665, 6280743598, 209134066, 6026440918 #### [facility] (DEFAULT) [address] [place] [address] .QC Respiratory Panel 2.1 (B ioFire)on 07-26-2020 Internal Control-Resp Panel 2.1(BioFire) Pass Normal [facility] Comment on above: Order Comment: Order ed by [place].[[id number]] Performed By: #### 6 [id number], [id number] ####[facility] (DEFAULT)[address] [place] [address] Acet Levelon 07-26-2020 Acetaminoph Lvl 11 mcg/mL Normal 10-30 [facility] Comment on above: Performed By: #### 7 850795, 7205495, 8250445, 41703527, 4833166723, 4446882787, 045143609, 2842794488 ####[facility] (DEFAULT)[address] [place] [address] CBC w/ Auto Diffon 0 Erythrocyte distribution width (RBC) [Ratio] 13.4 % Normal 11.5-15.0 [facility] Comment on above: Performed By: #### 7 941583, 6623866, 0998114, 94133768, 8302012667, 4973455304, 966812258, 3134606239 #### [facility] (DEFAULT) [address] [place] [address] Hematocrit (Bld) [Volume fraction] 38.0 % Normal 33.7-40.4 [facility] Comment on above: Performed By: #### 7 474571, 6413590, 5853527, 60431235, 1332961548, 3786579572, 017301763, 6953512818 #### [facility] (DEFAULT) [address] [place] [address] Hemoglobin (Bld) [Mass/Vol] 12.2 g/dL Normal 11.3-15.9 [facility] Comment on above: Performed By: #### 7 137742, 4475768, 8471029, 00618045, 2725268860, 8588727440, 902609043, 8902455128 #### [facility] (DEFAULT) [address] [place] [address] Man Diff? Auto Normal [facility] Comment on above: Performed By: #### 7 728680, 4899562, 6860046, 35166970, 3895096217, 6784666717, 347983043, 5692422478 #### [facility] (DEFAULT) [address] [place] [address] MCH (RBC) [Entitic mass] 27 pg Normal 24-34 [facility] Comment on above: Performed By: #### 7 803179, 9152945, 2970233, 00153805, 3502103008, 2444439477, 720317479, 8842123934 #### [facility] (DEFAULT) [address] [place] [address] MCHC (RBC) [Mass/Vol] 32 g/dL Normal 26-37 [facility] Comment on above: Performed By: #### 7 895986, 3082284, 9254859, 73082665, 4317045701, 1151210828, 168433417, 1369912536 #### [facility] (DEFAULT) [address] [place] [address]57 MCV (RBC) [Entitic vol] 84 fL Normal 81-100 [facility] Comment on above: Performed By: #### 7 989479, 6164364, 4246983, 58972322, 9008033875, 2384214098, 573458639, 5930489360 #### [facility] (DEFAULT) [address] [place] [address] Platelet mean volume (Bld) [Entitic vol] 9.7 fL Normal 6.3-10.2 [facility] Comment on above: Performed By: #### 7 295693, 2364653, 8462795, 00206933, 0198956746, 3023774339, 276034472, 4699284201 #### [facility] (DEFAULT) [address] [place] [address] Platelets (Bld) [#/Vol] 316 x10 Normal 138-427 [facility] Comment on above: Performed By: #### 7 786145, 4812967, 2231432, 98871046, 5078735820, 1749942142, 030313155, 7614905544 #### [facility] (DEFAULT) [address] [place] [address] RBC (Bld) [#/Vol] 4.51 x10 Normal 3.70-5.30 [facility] Comment on above: Performed By: #### 7 883187, 4227146, 6989916, 62523588, 3739660339, 4877332829, 390728302, 7069024395 #### [facility] (DEFAULT) [address] [place] [address] WBC (Bld) [#/Vol] 7.8 x10 Normal 3.5-10.5 [facility] Comment on above: Performed By: #### 7 322828, 8994354, 9001074, 63196362, 5475576445, 4006136725, 292912328, 3937990360 #### [facility] (DEFAULT) [address] [place] [address]83 CMP Standardon 07-26-2020 eGFR Non AA >60 [facility] Comment on above: Performed By: #### 7 411779, 8432393, 6342125, 35328026, 3116514900, 6345930143, 903127525, 9136612342 ####[facility] (DEFAULT)[address] [place] [address] eGFR AA >60 [facility] Comment on above: Result Comment: Columnist carlo Kidney disease could be indicated at eGFRs of less than 60 ml/min/1.73m2. Kidney Failure is indicated at less than 15 ml/min/1.73m2 Performed By: #### 7 275881, 0470768, 3091470, 36003478, 4951892353, 2151372565, 638134830, [id number] ####[facility] (DEFAULT)[address] [place] [address] 25994 Albumin [Mass/Vol] 4.0 g/dL Normal 3.5-5.0 [facility] Comment on above: Performed By: #### 7 055322, 5963807, 0588100, 20391483, [id number], 0137733974, 344395569, [id number] ####[facility] (DEFAULT)[address] [place] [address] 51826 Albumin/Globulin [Mass ratio] 1.2 {ratio} Low 1.4-2.6 [facility] Comment on above: Performed By: #### 7 924376, 7590973, 9007401, 34721869, 1578369719, 7351521183, 988564191, 4636692277 ####[facility] (DEFAULT)[address] [place] [address] 68633 Alk Phos 69 IU/L Normal 32-91 [facility] Comment on above: Performed By: #### 7 807952, 1757040, 4265717, 04419094, 1280442261, 5105842868, 381516698, 7466514411 ####[facility] (DEFAULT)[address] [place] [address] 73657 ALT/SGPT 21.0 IU/L Normal 14.0-54.0 [facility] Comment on above: Performed By: #### 7 615611, 8790187, 3185293, 16425526, 2599736808, 1786277739, 236221964, [id number] ####[facility] (DEFAULT)[address] [place] [address] 20591 Anion gap [Moles/Vol] 13.0 mmol/L Normal 5.0-19.0 [facility] Comment on above: Performed By: #### 7 829080, 0181231, 6019752, 26943567, 3420130312, 8179079861, 718735333, 9167854580 ####[facility] (DEFAULT)[address] [place] [address] 47082 AST/SGOT 18 IU/L Normal 15-41 [facility] Comment on above: Performed By: #### 7 550742, 9220060, 7853522, 57435855, 1995777154, 5856812801, 688535244, 7410330574 ####[facility] (DEFAULT)[address] [place] [address] 48792 Bili Total 0.7 mg/dL Normal 0.3-1.2 [facility] Comment on above: Performed By: #### 7 085764, 9805458, 9659556, 79212232, 4238055963, 7286089791, 788308088, 1484306179 ####[facility] (DEFAULT)[address] [place] [address] 32658 Calcium [Mass/Vol] 9.1 mg/dL Normal 8.9-10.3 [facility] Comment on above: Performed By: #### 7 662099, 9574954, 8004458, 49040322, 1861141472, 6155201517, 875378714, 7791150123 ####[facility] (DEFAULT)[address] [place] [address] 16518 Chloride [Moles/Vol] 104 mmol/L Normal 101-111 [facility] Comment on above: Performed By: #### 7 064010, 1624987, 7624961, 72755397, 9915461124, 1046984384, 080454060, 2804314876 ####[facility] (DEFAULT)[address] [place] [address] 23091 CO2 [Moles/Vol] 25 mmol/L Normal 21-32 [facility] Comment on above: Performed By: #### 7 592496, 3928496, 7054241, 55338286, 9678622821, 9817843829, 216826945, 8629245829 ####[facility] (DEFAULT)[address] [place] [address] 74409 Creatinine [Mass/Vol] 0.56 mg/dL Low 0.60-1.30 [facility] Comment on above: Performed By: #### 7 763870, 9013193, 7749634, 19256405, 7349635021, 5275007893, 341738184, 0763477656 ####[facility] (DEFAULT)[address] [place] [address] 21971 Globulin (S) [Mass/Vol] 3.4 g/dL Normal 1.5-4.3 [facility] Comment on above: Performed By: #### 7 564110, 0760302, 4800193, 09369325, 4267415229, 4667613040, 535913655, 4595888554 ####[facility] (DEFAULT)[address] [place] [address] 24914 Glucose [Mass/Vol] 97.0 mg/dL Normal 74.0-118.0 [facility] Comment on above: Performed By: #### 7 754931, 9418701, 7481075, 19131067, 2303159732, 3246288378, 664863637, 4723184406 ####[facility] (DEFAULT)[address] [place] [address] 68011 Osmolality [Osmolality] 277 mOsm/L [facility] Comment on above: Performed By: #### 7 259464, 3858561, 1328213, 63920015, 9127968469, 6021522862, 581434679, 1347273682 ####[facility] (DEFAULT)[address] [place] [address] 13049 Potassium [Moles/Vol] 4.0 mmol/L Normal 3.6-5.1 [facility] Comment on above: Performed By: #### 7 105088, 8803197, 3315293, 49766328, 8217915363, 6438492172, 454867485, 6001900372 ####[facility] (DEFAULT)[address] [place] [address] 97086 Protein [Mass/Vol] 7.4 g/dL Normal 6.5-8.1 [facility] Comment on above: Performed By: #### 7 857698, 2142290, 0944544, 90125744, 4102472775, 3434681556, 559946476, 0858044098 ####[facility] (DEFAULT)[address] [place] [address] 13656 Sodium [Moles/Vol] 138.0 mmol/L Normal 136.0-144.0 [facility] Comment on above: Performed By: #### 7 128215, 9525107, 9683482, 82704714, 5247651431, 0799072045, 716403598, 6388070268 ####[facility] (DEFAULT)[address] [place] [address] 03465 Urea nitrogen [Mass/Vol] 16 mg/dL Normal 8-26 [facility] Comment on above: Performed By: #### 7 048762, 3684581, 6278088, 29041177, 0743566410, 2792557081, 532529870, 7189661728 ####[facility] (DEFAULT)[address] [place] [address] 27696 Urea nitrogen/Creatinine [Mass ratio] 29.0 mg/mg High 4.6-16.2 [facility] Comment on above: Performed By: #### 7 881484, 2759633, 2770808, 65023394, 7121380957, 5527336586, 610760389, 0709476262 ####[facility] (DEFAULT)[address] [place] [address] 01427 ED Clinical Summaryon 2019 ED Clinical Summary [facility] - Emergency Department [address] [place] [address] 86056 ED Clinical Summary PERSON INFORMATION Name: NADIR HENDRICKSON Age: 34 Years Sex: FEMALE : 1985 MRN: Acct#: Visit Reason: Suicidal ideation; SUICIDAL IDEATION Arrival: 07/26/2020 14:20:47 Discharge: 07/26/2020 16:59:00 LOS: 000 02:39 Check In: 07/26/2020 14:20:47 Checkout:07/26/2020 16:59:00 Address: [address] [facility] [address] PCP: Ingrid Culver NP PROVIDER INFORMATION Provider [...] situation. Patient is currently living at the [facility] here in [place] which is a woman's usp type living. Patient states she has been living there for about 1 year. Patient states that she grew up in [place]. States she had 1 prior suicide attempt at the age of 9 or 10 years old. She states she did not feel she was wanted and friends states that she did not have a good home life and did not have the Sandy nurturing that she deserved. Patient states that aside from her childhood living at the [facility], has been difficult. 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 Patient states child was [...] 14:57:00, rate 85, Sinus rhythm Normal ECG IL interval 168, QRS duration 89, QT/QTc 337/379. [...] % Auto Lymph % 26 % Auto Weston % 7 % Auto Eos % 1.7 % Auto Baso % 0.3 % Neut Abs# 5.1 x103/mcL Lymph Abs# 2.0 x103/mcL Weston Abs# 0.5 x103/mcL Eos Abs# 0.1 x103/mcL Baso Abs# 0.0 x103/mcL Salicylate Lvl <4.0 mg/dL Acetaminoph Lvl 11 mcg/mL Tube Collected Yes Tube Collected Yes 07/26/2020 14:50 EDT Ethanol Level <5.0 mg/dL . Reexamination/ Reevaluation 15:03 I spoke with [facility] counseling hotline in regards to the [...] 16:36 I spoke with Sarah counselor from [facility]. She spoke with her friend Melisa whom is willing to safety plan with the pt at [employer], Pt and Melisa are comfortable with this plan. [facility] also spoke with Zoie, pts counselor [...] agrees and understands this plan of care. [facility] counselor Sarah and myself are agreeable to safety plan with patient's friend Melisa patient will be discharged home. Impression and Plan Diagnosis Depression (MCR60-DE F32.9, Discharge, Medical) Suicidal ideations (RFJ21-MV R45.851, Discharge, Medical) Plan Condition: Stable. Disposition: [...] next week. You spoke with Sarah from [facility], at this time, we [...] Follow-Up: With: Address: When: Ingrid Culver [address] [facility] [facility], [address] [place] [id number] [facility] (1) Within 3 to 5 days Comments: Please follow-up with your counselor in 3 to 5 days. Your counselor Zoie should be contacting you tomorrow as well as a Tuesday to check in on you and speak with you. Please keep your follow-up appointment with her for Tuesday of next week. You spoke with Sarah from [facility], at this time, we [...] r verbalizes understanding of instructions given Comment: [facility] ED Note - Otheron 07-26-2020 ED Note - Other Called FC&R @ 6260 a dmitry sarah called back @ 9176, and spoke with MAYCOL Dudley, and also spoke with pt. [Electronically Signed on: 07/26/2020 16:37 EDT] Sola Sierra [Verified on: 07/26/2020 16:37 EDT] Sola Sierra [facility] ED Note - Physicianon 2019 ED [...] situation. Patient is currently living at the [facility] here in [place] which is a woman's usp type living. Patient states she has been living there for about 1 year. Patient states that she grew up in [place]. States she had 1 prior suicide attempt at the age of 9 or 10 years old. She states she did not feel she was wanted and friends states that she did not have a good home life and did not have the Sandy nurturing that she deserved. Patient states that aside from her childhood living at the [facility], has been difficult. She states that [...] states that her is also currently in skilled nursing and has 3 or 4 more years [...] a 15 yo daughter who lives in [place] with her grandmother. Patient states child was [...] 14:57:00, rate 85, Sinus rhythm Normal ECG IL interval 168, QRS duration 89, QT/QTc 337/379. [...] % Auto Lymph % 26 % Auto Weston % 7 % Auto Eos % 1.7 % Auto Baso % 0.3 % Neut Abs# 5.1 x103/mcL Lymph Abs# 2.0 x103/mcL Weston Abs# 0.5 x103/mcL Eos Abs# 0.1 x103/mcL Baso Abs# 0.0 x103/mcL Salicylate Lvl <4.0 mg/dL Acetaminoph Lvl 11 mcg/mL Tube Collected Yes Tube Collected Yes 07/26/2020 14:50 EDT Ethanol Level <5.0 mg/dL . Reexamination/ Reevaluation 15:03 I spoke with [facility] counseling hotline in regards to the [...] 16:36 I spoke with Sarah counselor from [facility]. She spoke with her friend Melisa whom is willing to safety plan with the pt at [employer], Pt and Melisa are comfortable with this plan. [facility] also spoke with Zoie, pts counselor [...] agrees and understands this plan of care. [facility] counselor Sarah and myself are agreeable to safety plan with patient's friend Melisa patient will be discharged home. Impression and Plan Diagnosis Depression (TOG01-VJ F32.9, Discharge, Medical) Suicidal ideations (PKF49-CS R45.851, Discharge, Medical) Plan Condition: Stable. Disposition: [...] next week. You spoke with Sarah from [facility] behavioral health and counseling, at this [...] 07/26/2020 16:46 EDT] Luis Enrique Clark PA-C [facility] ED Note-Nursingon 07-26-2020 ED Note-Nursing Pt arrives to ED and per caregiver states she wants to harm herself. Pt states she wishes she was not here and that she were . Pt states she has more stress right now but does not have any additional stressors than normal. [facility] ED Note-Nursing PT ARRIVED IN ED W/ REGISTERED PHARMACY TECHNICIAN AND CC OF SUICIDAL THOUGHTS BUT HAS NO PLAN IN PLACE TO HARM HERSELF. PT IS ALERT AND ORIENTED WHILE BEING VERY UNKEMPT. PT AMBULATED TO ED ROOM 4 W/O DIFFICULTY OF INCIDENT. [facility] ED Patient Education Noteon 07-26-2020 ED [...] urine clear or pale yellow. ? Take nyzw-iwz-ajncfpm and prescription medicines only as told by [...] 03/15/2002 Document Revised: 09/01/2018 Document Reviewed: 11/09/2017 [employer] Patient Education ? 2019 [employer] Suicidal Feelings: How to Help Yourself [...] services (911 in the [place] ? [facility] and human services helpline (211 in the [place] ? Go to your nearest emergency department. ? Call a suicide hotline to speak with a trained counselor. The following suicide hotlines are available in the [place]: ? 9-610-374-TALK ( ). ? 2-835-FWBEING ( ). ? . This is a hotline for Peruvian speakers. ? . This is a hotline for TTY users. ? 8-340-2-U-FRED ( ). This is a hotline for [...] even if you do not feel sociable. Smlg-if-pzzy conversation is best to help them understand [...] can help you feel better. ? Take aztt-qzf-fmchayt and prescription medicines only as told by [...] Lifeline: www.suicidepreventionli feline.org ? Hopeline: www.hopeline.com ? [employer] for Suicide Prevention: www.afsp.org ? The Fred Project (for lesbian, clayton, bisexual, transgender, or questioning youth): www.theSuksh Tech.vorproject.or g Contact a health care provider if: [...] 03/25/2004 Document Revised: 01/10/2020 Document Reviewed: 05/02/2018 Elsevier Patient Education ? 2019 [employer] Normal [facility] ED Patient Summaryon 020 ED Patient Summary [facility] - Emergency Department [address] [place] [address] 67575 PATIENT DISCHARGE INSTRUCTIONS Patient Information Name: NADIR HENDRICKSON Age: 34 Years Date of : 1985 Reason For Visit: Suicidal ideation; SUICIDAL IDEATION Arrival Time: 07/26/2020 14:20:47 Primary Care Physician: Ingrid Culver NP Attending Physician: John Krishnamurthy MD Comment: Visit Diagnosis: Diagnoses This Visit Depression (F32.9) Suicidal ideation ([id number]) Suicidal ideations (R45.851) Prescription Information: If you have been given a prescription for narcotics, seek immediate medical attention if you have any difficulty breathing or any sudden status changes such as confusion and sleepiness. If you or anyone you know is experiencing suicidal thoughts, mental health, alcohol and/or drug addiction problems; contact the [facility] 25/04 Crisis Hotline -Text 4HNOE lv 714088. If you received any narcotics, sedation, or [...] documents With: Address: When: Ingrid Culver [address], [address] [place] [address] Business (1) Within 3 to 5 days Comments: Please follow-up with your counselor in 3 to 5 days. Your counselor Zoie should be contacting you tomorrow as well as a Tuesday to check in on you and speak with you. Please keep your follow-up appointment with her for Tuesday of next week. You spoke with Sarah from [facility] behavioral health and counseling, at this [...] and treatment you received today in the [facility] Emergency Department were for an urgent problem and are not intended as complete care. It is important for you to follow up with a doctor, nurse practitioner, or physician?s culture media laboratory assistant for ongoing care. If your symptoms [...] so we can reach you if necessary. [facility] Department has provided you with a complete list of medications post discharge. Please inform your paralegal assistant/provider of your visit and for further instruction [...] urine clear or pale yellow. ? Take lxgz-wjj-scmjmlk and prescription medicines only as told by [...] 03/15/2002 Document Revised: 09/01/2018 Document Reviewed: 11/09/2017 [employer] Patient Education ? 2020 [employer] Suicidal Feelings: How to Help Yourself [...] help: ? Call your local emergency services (881 in the [place] ? [facility] and human services helpline (907 in the [place] ? Go to your nearest emergency department. ? Call a suicide hotline to speak with a trained counselor. The following suicide hotlines are available in the [place]: ? 0-407-013-TALK ( ). ? 5-372-WVWLJDX ( ). ? . This is a hotline for Peruvian speakers. ? . This is a hotline for TTY users. ? 0-572-8-U-FRED ( ). This is a hotline for [...] centers in the [place], visit: suicidepreventionlifeli [employer].org ? For a list of crisis centers [...] even if you do not feel sociable. Zkjo-zt-pihf conversation is best to help them understand [...] can help you feel better. ? Take wwcg-zag-zoqmjid and prescription medicines only as told by [...] Lifeline: www.suicidepreventionli feline.org ? Hopeline: www.hopeline.com ? [employer] Foundation for Suicide Prevention: www.afsp.org ? The [...] 03/25/2004 Document Revised: 01/10/2020 Document Reviewed: 05/02/2018 [employer] Patient Education ? 2019 [employer] Viruses or Bacteria What?s got you [...] Disease Control and Prevention June 2014 Normal [facility] Ethanol.on 07-26-2020 Ethanol Level <5.0 Normal 0.0-5.0 [facility] Comment on above: Performed By: #### 2 [id number] ####[facility] (DEFAULT)[address] [place] [address] Extra Redon 07-26-2020 Tube Collected Yes [facility] Comment on above: Performed By: #### 7 742805, 8370355, 6821704, 02330392, [id number], [id number], 904523670, [id number] #### [facility] (DEFAULT) [address] [place] [address] Pharmacy Noteon 07-26-2020 Pharmacy Note I have [...] on: 07/26/2020 16:05 EDT] Brianna Hamilton Normal [facility] Respiratory Panel 2.1 (BioFi re)on 07-26-2020 Adenovirus -BioFire Not Detected Normal Not Detected [facility] Comment on above: Order Comment: Pt keesha rban at [facility], a women's home, required for psych admission Performed By: #### 6 [id number], [id number] ####[facility] (DEFAULT)[address] [place] [address] Bordetella parapertussis -BioFire Not Detected Normal Not Detected [facility] Comment on above: Order Comment: Pt keesha bran at [facility] [place] [place], required for psych admission Performed By: #### 6 [id number], [id number] ####[facility] (DEFAULT)[address] [place] [address] 65949 Bordetella pertussis -BioFire Not Detected Normal Not Detected [facility] Comment on above: Order Comment: Pt li ves at [facility], a women's home, required for psych admission Performed By: #### 6 [id number], [id number] ####[facility] (DEFAULT)[address] [place] [address] 24714 Chlamydia pneumoniae -BioFire Not Detected Normal Not Detected [facility] Comment on above: Order Comment: Pt li ves at [facility] [place] [place], required for psych admission Performed By: #### 6 [id number], [id number] ####[facility] (DEFAULT)[address] [place] [address] 81851 Coronavirus 229E (Not COVID-19) -BioFire Not Detected Normal Not Detected [facility] Comment on above: Order Comment: Pt li ves at [facility], a women's home, required for psych admission Performed By: #### 6 [id number], [id number] ####[facility] (DEFAULT)[address] [place] [address] 46392 Coronavirus HKU1 (Not COVID-19) -BioFire Not Detected Normal Not Detected [facility] Comment on above: Order Comment: Pt li ves at [facility] [place], required for psych admission Performed By: #### 6 [id number], [id number] ####[facility] (DEFAULT)[address] [place] [address] 67313 Coronavirus NL63 (Not COVID-19) -BioFire Not Detected Normal Not Detected [facility] Comment on above: Order Comment: Pt li ves at [facility] [place], required for psych admission Performed By: #### 6 [id number], [id number] ####[facility] (DEFAULT)[address] [place] [address] 15989 Coronavirus OC43 (Not COVID-19) -BioFire Not Detected Normal Not Detected [facility] Comment on above: Order Comment: Pt li ves at [facility], a women[facility] home, required for psych admission Performed By: #### 6 [id number], [id number] ####[facility] (DEFAULT)[address] [place] [address] Employed in healthcare? No [facility] Comment on above: Order Comment: Pt li ves at [facility], a women[facility], required for psych admission Performed By: #### 6 [id number], [id number] ####[facility] (DEFAULT)[address] [place] [address] Group care resident? Yes [facility] Comment on above: Order Comment: Pt li ves at [facility], a women[facility] home, required for psych admission Performed By: #### 6 [id number], [id number] ####[facility] (DEFAULT)[address] [place] [address] Hospitalized due to COVID-19? No [facility] Comment on above: Order Comment: Pt li ves at [facility], a [facility], required for psych admission Performed By: #### 6 [id number], [id number] ####[facility] (DEFAULT)[address] [place] [address] Human Metapneumovirus -BioFire Not Detected Normal Not Detected [facility] Comment on above: Order Comment: Pt li ves at [facility], a [facility], required for psych admission Performed By: #### 6 [id number], [id number] ####[facility] (DEFAULT)[address] [place] [address] Human Rhinovirus/Enterovir us -BioFire Not Detected Normal Not Detected [facility] Comment on above: Order Comment: Pt li ves at [facility], a women[facility] home, required for psych admission Performed By: #### 6 [id number], [id number] ####[facility] (DEFAULT)[address] [place] [address] 07190 In ICU? No [facility] Comment on above: Order Comment: Pt li ves at [facility], a women[facility], required for psych admission Performed By: #### 6 [id number], [id number] ####[facility] (DEFAULT)[address] [place] [address] 97323 Influenza A (no subtype) -BioFire Not Detected Normal Not Detected [facility] Comment on above: Order Comment: Pt li ves at [facility], a women[facility], required for psych admission Performed By: #### 6 [id number], [id number] ####[facility] (DEFAULT)[address] [place] [address] 63442 Influenza A -BioFire Not Detected Normal Not Detected [facility] Comment on above: Order Comment: Pt li ves at [facility], a [facility], required for psych admission Performed By: #### 6 [id number], [id number] ####[facility] (DEFAULT)[address] [place] [address] Influenza A H1 -BioFire Not Detected Normal Not Detected [facility] Comment on above: Order Comment: Pt li ves at [facility], a [facility], required for psych admission Performed By: #### 6 [id number], [id number] ####[facility] (DEFAULT)[address] [place] [address] 17720 Influenza A H1-2009 -BioFire Not Detected Normal Not Detected [facility] Comment on above: Order Comment: Pt li ves at [facility], a [facility], required for psych admission Performed By: #### 6 [id number], [id number] ####[facility] (DEFAULT)[address] [place] [address] 05725 Influenza A H3 -BioFire Not Detected Normal Not Detected [facility] Comment on above: Order Comment: Pt li ves at [facility], a [facility], required for psych admission Performed By: #### 6 [id number], [id number] ####[facility] (DEFAULT)[address] [place] [address] 83813 Influenza B -BioFire Not Detected Normal Not Detected [facility] Comment on above: Order Comment: Pt li ves at [facility], [facility], required for psych admission Performed By: #### 6 [id number], [id number] ####[facility] (DEFAULT)[address] [place] [address] 94161 Mycoplasma pneumoniae -BioFire Not Detected Normal Not Detected [facility] Comment on above: Order Comment: Pt li ves at [facility], a [facility], required for psych admission Performed By: #### 6 [id number], [id number] ####[facility] (DEFAULT)[address] [place] [address] 15445 Parainfluenza Virus 1 -BioFire Not Detected Normal Not Detected [facility] Comment on above: Order Comment: Pt li ves at [facility], required for psych admission Performed By: #### 6 [id number] ####[facility] (DEFAULT)[address] [place] [address] Parainfluenza Virus 2 -BioFire Not Detected Normal Not Detected [facility] Comment on above: Order Comment: Pt li ves at [facility] a [facility], required for psych admission Performed By: #### 6 [id number], [id number] ####[facility] (DEFAULT)[address] [place] [address] 26566 Parainfluenza Virus 3 -BioFire Not Detected Normal Not Detected [facility] Comment on above: Order Comment: Pt li ves at [facility] a [facility], required for psych admission Performed By: #### 6 [id number], [id number] ####[facility] (DEFAULT)[address] [place] [address] 84821 Parainfluenza Virus 4 -BioFire Not Detected Normal Not Detected [facility] Comment on above: Order Comment: Pt li ves at [facility], required for psych admission Performed By: #### 6 [id number], [id number] ####[facility] (DEFAULT)[address] [place] [address] 12387 status? Not [facility] Comment on above: Order Comment: Pt li ves at [facility], required for psych admission Performed By: #### 6 [id number], [id number] ####[facility] (DEFAULT)[address] [place] [address] 48078 Respiratory Syncytial Virus -BioFire Not Detected Normal Not Detected [facility] Comment on above: Order Comment: Pt li ves at [facility], required for psych admission Performed By: #### 6 [id number], [id number] ####[facility] (DEFAULT)[address] [place] [address] 13126 SARS-CoV-2 (COVID-19) -BioFire Not Detected Normal Not Detected [facility] Comment on above: Order Comment: Pt li ves at [facility] a [facility], required for psych admission Performed By: #### 6 [id number], [id number] ####[facility] (DEFAULT)[address] [place] [address] 44623 Symptomatic as defined by CDC? No [facility] Comment on above: Order Comment: Pt li ves at [facility], required for psych admission Performed By: #### 6 [id number], [id number] ####[facility] (DEFAULT)[address] [place] [address]4067 Salicylateon 07-26-2020 Salicylate Lvl <4.0 Normal 0.0-30.0 [facility] Comment on above: Result Comment: Sali cylate ranges less than 30 mg/dL are considered to be therapeutic. Levels greater than 30 mg/dL are considered toxic and levels greater than 60 mg/dL may be lethal. Performed By: #### 7 [id number], [id number], [id number], [id number], [id number], [id number], [id number], [id number] ####[facility] (DEFAULT)[address] [place] [address] 61134 Thyroid Panel 4on 07-26-2020 T3 Uptake. 48 % Normal 32-48 [facility] Comment on above: Performed By: #### 7 [id number], [id number], [id number], [id number], [id number], [id number], [id number], [id number] ####[facility] (DEFAULT)[address] [place] [address] 47015 T4 [Mass/Vol] 9.41 ug/dL Normal 6.09-12.23 [facility] Comment on above: Performed By: #### 7 [id number], [id number], [id number], [id number], [id number], [id number], [id number], [id number] ####[facility] (DEFAULT)[address] [place] [address] T7 4.52 Normal 1.94-5.91 [facility] Comment on above: Performed By: #### 7 [id number], 8570047, 8796182, [id number], [id number], [id number], [id number], [id number] ####[facility] (DEFAULT)[address] [place] [address] TSH Qn 1.49 mcIU/mL Normal 0.45-5.33 [facility] Comment on above: Result Comment: Gene ral Population (males and non- females, aged 21-88) 0.45 - 5.33 Females, 1st Trimester 0.05 - 3.70 Females, 2nd Trimester 0.31 - 4.35 Females, 3rd Trimester 0.41 - 5.18 Performed By: #### 7 [id number], [id number], 4719123, [id number], [id number], [id number], [id number], [id number] ####[facility] (DEFAULT)[address] [place] [address] Coding Summary.on 07-07-2020 Coding Summary. CODING DATE: 020 FINAL [facility] STATUS: Home (Routine DC) PAYOR: Medicaid EAPG [...] result in slightly different terminology. Coded By: Prabhakar Addison Savanna Date Saved: 07/07/2020 02:39 pm Normal [facility] Consent for Treatmenton Consent for Treatment [id number]#1.00C D:[address] [facility] MRI Wrist Arthrogram Righton [...] MultiHance Contrast amount in ml's: [address] [facility] RAD - Consent to Procedureon 07-04-2020 RAD - Consent to Procedure [id number]#1.00 CD:[address] [facility] RAD - MRI Screening Formon 1 RAD - MRI Screening Form [id number]#1.00C D:[address] [facility] XR Inj Wrist Arthrogram [...] Dose: Ka,r in mGy = 0.[address] [facility] Medication Managementon 06-04 Medication Management [id number]#1.00O [facility]04 Physical Therapy Note [id number]#1.00O [facility] Orderon 06-20-2020 Physician Order [id number]#1.00 CD:127 [facility] Coding Summaryon 05-01-2020 Coding Summary CODING DATE: 020 [facility] STATUS: PAYOR: Medicaid HMO ADMIT DX: REASON [...] Alpa Norman Date Saved: 05/01/2020 11:46 am [facility] Provider Orderson 05-01-2020 Provider Orders [id number]#1.00O [facility] Coding Summaryon 04-16-2020 Coding Summary CODING DATE: 020 [facility] STATUS: Home PAYOR: Medicaid HMO ADMIT DX: [...] Alpa Norman Date Saved: 04/16/2020 02:37 pm [facility] Lab - Immunology/Serology Re sultson 03-31-2020 Lab - Immunology/Serology Results [id number]#1.00OT [facility] POCT urine pregnancyon 03-31 Beta HCG ( test) Ql (U) Negative NEGATIVE [facility], [place] Comment on above: Specimens with hCG l [...] testing to the number on the order. [facility] Provider Orderson 03-28-2020 Provider Orders [id number]#1.00O [facility]IFF [facility] SARS-CoV-2 (COVID-19) PCRon 03-28-2020 COVID-19 PCR Not Detected Normal Not Detected [facility] Comment on above: Order Comment: Sent to [facility] Performed By: #### 6 [id number] ####[facility] (DEFAULT)[address] [place] [address] Coding Summaryon 02-20-2020 Coding Summary CODING DATE: 020 [facility] STATUS: Home PAYOR: Medicaid HMO ADMIT DX: [...] Alpa Norman Date Saved: 02/20/2020 11:22 am [facility] Consent Formson 02-19-2020 Consent Forms [id number]#1.00O [facility] Medication Managementon 01-31 Medication Management [id number]#1.00O [facility] ED Clinical Summaryon 2019 ED Clinical Summary [facility] ? Urgent Care [address] [place] [address] Clinical Summary PERSON INFORMATION Name: NADIR HENDRICKSON Age: 34 Years Sex: FEMALE : 1985 MRN: Acct#: Visit Reason: Back pain; Foot pain-swelling; FALL, RIGHT WRIST PAIN, RIGHT FOOT PAIN, BACK PAIN Arrival: 02/18/2020 12:47:00 Discharge: 02/18/2020 14:46:00 LOS: 000 01:59 Check In: 02/18/2020 12:47:00 Checkout: 02/18/2020 14:46:00 Address: [address] [place] [address] PCP: Provider, None PROVIDER INFORMATION Provider Role Assigned Unassigned Suze Santiago RN ED Nurse 02/18/2020 12:55:51 Charlie Romero-Gilles ED PA 02/18/2020 12:57:26 VITALS INFORMATION Vital Sign Triage Latest Temperature Tympanic Temperature Temporal Artery Pulse Rate O2 Sat Respiratory Rate Blood Pressure /88 mmHg /88 mmHg MEDICAL INFORMATION Medications Given: Allergy Information: Claritin; methylPREDNISolone PHYSICIAN DOCUMENTATION DISCHARGE INFORMATION: Discharge Disposition: Home Discharge Location: Home PATIENT EDUCATION INFORMATION Instructions: Wrist Fracture Treated With Immobilization; Thoracic Strain, Msvl-ko-Efgu; Wrist Sprain, Adult; Foot Sprain Follow-Up: With: Address: When: Rafita Watson [address] [place] [address] [facility] () Within 1 to 2 days With: Address: When: Follow up with primary care provider Within 2 to 4 days DIAGNOSIS: Right foot sprain; Sprain of right wrist; Strain of thoracic spine Patient Understands: Yes - Patient/family/caregive r verbalizes understanding of instructions given Comment: [facility] ED Patient Summaryon 020 ED Patient Summary [facility] ? Urgent Care [address] [place] [address] PATIENT DISCHARGE INSTRUCTIONS Patient Information Name: NADIR HENDRICKSON Age: 34 Years Date of : 1985 Reason For Visit: Back pain; Foot pain-swelling; FALL, RIGHT WRIST PAIN, RIGHT FOOT PAIN, BACK PAIN Arrival Time: 02/18/2020 12:47:00 Primary Care Physician: Provider, Girish Attending Physician: Esteban Barry Comment: Patient Education With: Address: When: Rafita Watson [address] [facility] [address] Business (1) Within 1 to 2 days [...] is stable enough for you to begin vzogv-gu-odffnl exercises. You may also be prescribed pain [...] your health care provider approves. ? Do nnucu-ia-qjmwtc exercises only as told by your health care provider or physical therapist. General instructions ? Do not put pressure on any part of the cast or splint until it is fully hardened. This may take several hours. ? Take zgwh-isj-uywwyiv and prescription medicines only as told by [...] keep your urine pale yellow. ? Take wnkk-jvj-sntyysa or prescription medicines. ? Eat foods that [...] 06/29/2006 Document Revised: 02/20/2019 Document Reviewed: 02/20/2019 [employer] Patient Education ? 2019 [employer] Thoracic Strain Thoracic strain is an [...] minutes, 2?3 times per day. ? Take rdsr-xej-nplydhh and prescription medicines only as told by [...] 03/07/2009 Document Revised: 05/21/2017 Document Reviewed: 11/13/2015 [employer] Patient Education ? 2019 [employer]. Wrist Sprain, Adult A wrist sprain is [...] health care provider. General instructions ? Take qtvx-emk-ssrexsu and prescription medicines only as told by [...] 05/23/2015 Document Revised: 04/16/2017 Document Reviewed: 04/07/2017 [employer] Patient Education ? 2019 [employer] Foot Sprain A foot sprain is [...] This may take several hours. ? Take haba-isr-iyzlymt and prescription medicines only as told by [...] 03/11/2003 Document Revised: 09/23/2018 Document Reviewed: 09/23/2018 [employer] Patient Education ? 2019 [employer]. Medication Information: The exam and treatment you received today in the [facility] Emergency Department were for an urgent problem and are not intended as complete care. It is important for you to follow up with a doctor, nurse practitioner, or physician?s culture media laboratory assistant for ongoing care. If your symptoms [...] so we can reach you if necessary. [facility] Emergency Department has provided you with a complete list of medications post discharge. Please inform your paralegal assistant/provider of your visit and for further instruction on these medications. Any specific questions regarding your chronic medications and dosages should be discussed with your primary care physician(s) and/or pharmacist. New Medications [facility], [address] [place], [place] [id number], [phone] ibuprofen (ibuprofen 600 mg oral tablet) 1 [...] Visit Diagnosis: Diagnoses This Visit Back pain ([id number]) Foot pain-swelling ([id number]) Right foot sprain (S93.601A) Sprain of right [...] for Disease Control and Prevention June 2014 [facility] Patient Handouton 02-18-2020 Patient Handout Patient [...] is stable enough for you to begin oawep-xx-hxfmdt exercises. You may also be prescribed pain [...] your health care provider approves. ? Do fbrqh-id-bpvovu exercises only as told by your health care provider or physical therapist. General instructions ? Do not put pressure on any part of the cast or splint until it is fully hardened. This may take several hours. ? Take vtqc-vyk-umgekvd and prescription medicines only as told by [...] keep your urine pale yellow. ? Take zwyx-ogd-vzuamao or prescription medicines. ? Eat foods that [...] 06/29/2006 Document Revised: 02/20/2019 Document Reviewed: 02/20/2019 [employer] Patient Education ? 2019 [employer] Thoracic Strain Thoracic strain is an [...] minutes, 2?3 times per day. ? Take ljmz-tiw-tydahfr and prescription medicines only as told by [...] 03/07/2009 Document Revised: 05/21/2017 Document Reviewed: 11/13/2015 [employer] Patient Education ? 2019 [employer] Wrist Sprain, Adult A wrist sprain [...] health care provider. General instructions ? Take xdhd-acr-nacfkix and prescription medicines only as told by [...] 05/23/2015 Document Revised: 04/16/2017 Document Reviewed: 04/07/2017 [employer] Patient Education ? 2019 [employer] Foot Sprain A foot sprain is [...] This may take several hours. ? Take mpom-nrt-yjicsif and prescription medicines only as told by [...] 03/11/2003 Document Revised: 09/23/2018 Document Reviewed: 09/23/2018 [employer] Patient Education ? 2018 [employer]. [facility] Urgent Care Note- Provideron 02-18-2020 Urgent [...] Impression and Plan Diagnosis Right foot sprain (MLA62-YE S93.601A, Discharge, Medical) Sprain of right wrist (TLH12-ZA S63.501A, Discharge, Medical) Strain of thoracic spine (UUJ40-DF S29.012A, Discharge, Medical) Possible left navicular fracture Plan Condition: Stable. Disposition: Discharged: Time 02/18/2020 14:20:00, to home. Prescriptions: [facility] Pharmacy: ibuprofen 600 mg oral tablet (Prescribe): 600 mg = 1 tab(s), PO, q8hr, for 10 day(s), PRN: as needed for pain, 30 tab(s), 0 Refill(s). Patient was given the following educational materials: Foot Sprain, Wrist Sprain, Adult, Thoracic Strain, Jtkc-yg-Cemz, Wrist Fracture Treated With Immobilization, Wrist Fracture Treated With Immobilization, Thoracic Strain, Izyk-vi-Coyz, Wrist Sprain, Adult, Foot Sprain. Follow up with: ; Follow up with primary care provider Within 2 to 4 days; Rafita Watson Within 1 to 2 days. Counseled: Patient, Regarding diagnosis, Regarding diagnostic results, Regarding treatment plan, Regarding prescription, Patient indicated understanding of instructions. Normal [facility] Recordon 020 Urgent Care Record [facility] ? Urgent Care [address] [place] [address] PATIENT DISCHARGE INSTRUCTIONS Patient Information Name: NADIR HENDRICKSON Age: 34 Years Date of : 1985 Reason For Visit: Back pain; Foot pain-swelling; FALL, RIGHT WRIST PAIN, RIGHT FOOT PAIN, BACK PAIN Arrival Time: 02/18/2020 12:47:00 Primary Care Physician: Provider, None Attending Physician: Esteban Barry Comment: Visit Diagnosis: Diagnoses This Visit Back pain ([id number]) Foot pain-swelling ([id number]) Right foot sprain (S93.601A) Sprain of right [...] legal documents With: Address: When: Rafita Watson [address] [place] [address] Business (1) Within 1 to 2 days With: Address: When: Follow up with primary care provider Within 2 to 4 days Medication Information: The exam and treatment you received today in the [facility] were for an urgent problem and are not intended as complete care. It is important for you to follow up with a doctor, nurse practitioner, or physician?s culture media laboratory assistant for ongoing care. If your symptoms [...] so we can reach you if necessary. [facility] has provided you with a complete list of medications post discharge. Please inform your paralegal assistant/provider of your visit and for further instruction on these medications. Any specific questions regarding your chronic medications and dosages should be discussed with your primary care physician(s) and/or pharmacist. New Medications [facility] [facility], [address], [place] [id number], [phone] ibuprofen (ibuprofen 600 mg oral tablet) 1 [...] is stable enough for you to begin mpyyo-gv-gcpdgf exercises. You may also be prescribed pain [...] your health care provider approves. ? Do radob-gj-joepqr exercises only as told by your health care provider or physical therapist. General instructions ? Do not put pressure on any part of the cast or splint until it is fully hardened. This may take several hours. ? Take zphg-azk-aeujveh and prescription medicines only as told by [...] keep your urine pale yellow. ? Take xjol-iao-yksezqs or prescription medicines. ? Eat foods that [...] 06/29/2006 Document Revised: 02/20/2019 Document Reviewed: 02/20/2019 [employer] Patient Education ? 2019 [employer] Thoracic Strain Thoracic strain is an [...] minutes, 2?3 times per day. ? Take tekz-hmv-xnyguez and prescription medicines only as told by [...] 03/07/2009 Document Revised: 05/21/2017 Document Reviewed: 11/13/2015 [employer] Patient Education ? 2019 [employer] Wrist Sprain, Adult A wrist sprain [...] health care provider. General instructions ? Take xmhl-tob-qiaskcg and prescription medicines only as told by [...] 05/23/2015 Document Revised: 04/16/2017 Document Reviewed: 04/07/2017 [employer] Patient Education ? 2019 [employer]. Foot Sprain A foot sprain is an [...] This may take several hours. ? Take jujt-jty-cngtmom and prescription medicines only as told by [...] 03/11/2003 Document Revised: 09/23/2018 Document Reviewed: 09/23/2018 [employer] Patient Education ? 2019 [employer]. Viruses or Bacteria What?s got you sick? [...] for Disease Control and Prevention June 2014 [facility] XR Foot Complete Righton XR Foot [...] MD 02/18/20 2:16 pm Technologist: Gabriel EVERETT [facility] XR Spine Thoracic 3 Viewson 02-18-2020 [...] MD 02/18/20 2:16 pm Technologist: Gabriel EVERETT [facility] XR Wrist Complete Righton XR Wrist [...] MD 02/18/20 2:16 pm Technologist: Gabriel EVERETT [facility] Coding Summaryon 10-05-2019 Coding Summary CODING DATE: 020 [facility] STATUS: Home PAYOR: Medicaid HMO ADMIT DX: [...] Tammy Villarreal Date Saved: 10/05/2019 01:09 pm [facility] Coding Summary CODING DATE: [facility] STATUS: Home PAYOR: Medicaid HMO ADMIT DX: [...] Tammy Villarreal Date Saved: 10/05/2019 01:08 pm [facility] ED Clinical Summaryon 2018 ED Clinical Summary [facility] - Emergency Department [address] [place], [place] [id number] ED Clinical Summary PERSON INFORMATION Name: NADIR HENDRICKSON Age: 33 Years Sex: FEMALE : 1985 MRN: Acct#: Visit Reason: Wheezing; Cough; DIFFICULTY BREATHING Arrival: 10/02/2019 20:04:01 Discharge: 10/02/2019 21:52:00 LOS: 000 01:48 Check In: 10/02/2019 20:04:01 Checkout:10/02/2019 21:52:00 Address: [address] [place] [address] PCP: Provider, None PROVIDER INFORMATION Provider Role [...] room.. Impression and Plan Diagnosis Asthma exacerbation (PSZ59-YZ J45.901, Discharge, Medical) Plan Condition: Improved, Stable. Disposition: Discharged: to home. Patient was given the following educational materials: Asthma, Adult, Ilmg-uj-Nckl, Asthma, Adult, Xdej-vm-Xacd. Follow up with: None Provider Within 3 to 5 days. Counseled: Patient, Regarding diagnosis, Regarding treatment plan, Patient indicated understanding of instructions. DISCHARGE INFORMATION: Discharge Disposition: Home Discharge Location: Home PATIENT EDUCATION INFORMATION Instructions: Asthma, Adult, Bacb-ea-Ehan Follow-Up: With: Address: When: None Provider Within 3 to 5 days DIAGNOSIS: Asthma exacerbation Patient Understands: Yes - Patient/family/caregive r verbalizes understanding of instructions given Comment: [facility] ED Note - Physicianon 2018 ED [...] room.. Impression and Plan Diagnosis Asthma exacerbation (QHQ52-BB J45.901, Discharge, Medical) Plan Condition: Improved, Stable. Disposition: Discharged: to home. Patient was given the following educational materials: Asthma, Adult, Dmvg-rr-Xhhc, Asthma, Adult, Naps-af-Vukd. Follow up with: None Provider Within 3 to 5 days. Counseled: Patient, Regarding diagnosis, Regarding treatment plan, Patient indicated understanding of instructions. [Electronically Signed on: 10/02/2019 21:30 EST] Macho Smith MD [Verified on: 10/02/2019 21:30 EST] Macho Smith MD [facility] ED Patient Education Noteon 10-02-2019 ED [...] pollute the air. These may include household casting coordinator, wood smoke, smog, or chemical odors. ? [...] you are not home. Use a vacuum cell cleaner with a HEPA filter if possible. [...] and water are not available, use hand manager books. ? Do not allow anyone to smoke in your home. General instructions ? Take stff-dsw-vscpywl and prescription medicines only as told by [...] 03/07/2009 Document Revised: 10/24/2017 Document Reviewed: 10/24/2017 [employer] Interactive Patient Education ? 2019 [employer] Normal [facility] ED Patient Summaryon 019 ED Patient Summary [facility] - Emergency Department [address] [place] [address] PATIENT DISCHARGE INSTRUCTIONS Patient Information Name: NADIR HENDRICKSON Age: 33 Years Date of : 1985 Reason For Visit: Wheezing; Cough; DIFFICULTY BREATHING Arrival Time: 10/02/2019 20:04:01 Primary Care Physician: Provider, None Attending Physician: Macho Smith MD Comment: Visit Diagnosis: Diagnoses This Visit Asthma exacerbation (J45.901) Cough ([id number]) Wheezing ([id number]) Prescription Information: If you have been given a prescription for narcotics, seek immediate medical attention if you have any difficulty breathing or any sudden status changes such as confusion and sleepiness. If you or anyone you know is experiencing suicidal thoughts, mental health, alcohol and/or drug addiction problems; contact the [facility] 25/04 Crisis Hotline -text 4hope to 741741. If you received any narcotics, sedation, or [...] and treatment you received today in the [facility] Emergency Department were for an urgent problem and are not intended as complete care. It is important for you to follow up with a doctor, nurse practitioner, or physician?s culture media laboratory assistant for ongoing care. If your symptoms [...] so we can reach you if necessary. [facility] Emergency Department has provided you with a complete list of medications post discharge. Please inform your paralegal assistant/provider of your visit and for further instruction [...] pollute the air. These may include household casting coordinator, wood smoke, smog, or chemical odors. ? [...] you are not home. Use a vacuum cell cleaner with a HEPA filter if possible. [...] and water are not available, use hand manager books. ? Do not allow anyone to smoke in your home. General instructions ? Take zoxm-spp-chmatii and prescription medicines only as told by [...] 03/07/2009 Document Revised: 10/24/2017 Document Reviewed: 10/24/2017 [employer] Patient Education ? 2019 [employer] Viruses or Bacteria What?s got you [...] for Disease Control and Prevention June 2014 [facility] C Throaton 09-06-2019 C Throat Ordered by Discern. Normal throat leda isolated No pathogens isolated [facility] Comment on above: Performed By: #### 4 [id number] ####[facility] (DEFAULT)[address] [place] [address] Coding Summaryon 09-06-2019 Coding Summary CODING DATE: [facility] STATUS: Home PAYOR: Medicaid HMO ADMIT DX: [...] Dante Villarreal' Date Saved: 09/06/2019 03:18 pm [facility] Coding Summary CODING DATE: 019 [facility] STATUS: Home PAYOR: Medicaid HMO ADMIT DX: [...] Tammy Villarreal Date Saved: 09/06/2019 03:17 pm Normal [facility] ED Clinical Summaryon 2018 ED Clinical Summary [facility] - Emergency Department [address] [place], [place] [id number] ED Clinical Summary PERSON INFORMATION Name: NADIR HENDRICKSON Age: 33 Years Sex: FEMALE : 1985 MRN: Acct#: Visit Reason: Throat pain - Adult; SORE THROAT, BIALTERAL EAR PAIN Arrival: 09/04/2019 11:12:00 Discharge: 09/04/2019 12:07:00 LOS: 000 00:55 Check In: 09/04/2019 11:12:00 Checkout:09/04/2019 12:07:00 Address: [address] [place], [place] [id number] PCP: Provider, None PROVIDER INFORMATION Provider Role Assigned Unassigned Luis Enrique Clark PA-C ED PA 09/04/2019 11:13:06 Luna Tran CONTACT CENTER TEAM LEAD Nurse 09/04/2019 11:31:06 VITALS INFORMATION Vital Sign [...] left. This may be further evaluated by search developer in which you are given information to follow-up with Dr. Evans. Continue Tylenol ibuprofen or Chloraseptic [place] for discomfort. Continue fluids rest. You may return here to the emergency department develop any fever, chills or any other worsening or concerning symptoms. With: Address: When: Tobi Evans [address] [id number] Business (1) Within 3 to 5 days DIAGNOSIS: Tonsil stone; Viral pharyngitis Patient Understands: Yes - Patient/family/caregive r verbalizes understanding of instructions given Comment: [facility] ED Note - Physicianon 2018 ED [...] care. Impression and Plan Diagnosis Tonsil stone (CMQ26-PY J35.8, Discharge, Medical) Viral pharyngitis (NLU57-JR J02.9, Discharge, Medical) Plan Condition: Stable. Disposition: [...] left. This may be further evaluated by search developer in which you are given information to follow-up with Dr. Evans. Continue Tylenol ibuprofen or Chloraseptic [place] for discomfort. Continue fluids rest. You may return here to the emergency department develop any fever, chills or any other worsening or concerning symptoms.. Counseled: Patient, Regarding diagnosis, Regarding diagnostic results, Regarding treatment plan, Patient indicated understanding of instructions. [Electronically Signed on: 09/04/2019 12:15 EST] Luis Enrique Clark PA-C [Verified on: 09/04/2019 12:15 EST] Luis Enrique Clark PA-C [facility] ED Patient Education Noteon 09-04-2019 ED [...] Follow these instructions at home: ? Take nrjc-yra-ultpwzi medicines only as told by your health [...] 10/27/2005 Document Revised: 05/15/2017 Document Reviewed: 07/09/2016 [employer] Interactive Patient Education ? 2019 [employer]. Pharyngitis Pharyngitis is redness, pain, and swelling [...] Follow these instructions at home: ? Take hoxp-uom-xdwnzpj and prescription medicines only as told by [...] 09/19/2006 Document Revised: 10/25/2017 Document Reviewed: 10/25/2017 [employer] Interactive Patient Education ? 2019 [employer]. Normal [facility] ED Patient Summaryon 019 ED Patient Summary [facility] - Emergency Department [address] [place], [place] [id number] PATIENT DISCHARGE INSTRUCTIONS Patient Information Name: NADIR HENDRICKSON Age: 33 Years Date of : 1985 Reason For Visit: Throat pain - Adult; SORE THROAT, BIALTERAL EAR PAIN Arrival Time: 09/04/2019 11:12:00 Primary Care Physician: Provider, None Attending Physician: John Krishnamurthy MD Comment: Visit Diagnosis: Diagnoses This Visit Throat pain - Adult ([id number]) Tonsil stone (J35.8) Viral pharyngitis (J02.9) Prescription Information: If you have been given a prescription for narcotics, seek immediate medical attention if you have any difficulty breathing or any sudden status changes such as confusion and sleepiness. If you or anyone you know is experiencing suicidal thoughts, mental health, alcohol and/or drug addiction problems; contact the [facility] 25/04 Crisis Hotline -Text 4HIPC mt 042824. If you received any narcotics, sedation, or [...] left. This may be further evaluated by search developer in which you are given information to follow-up with Dr. Evans. Continue Tylenol ibuprofen or Chloraseptic [place] for discomfort. Continue fluids rest. You may return here to the emergency department develop any fever, chills or any other worsening or concerning symptoms. With: Address: When: Tobi Evans [address] [place] [address] Business (1) Within 3 to 5 days Medication Information: The exam and treatment you received today in the [facility] Emergency Department were for an urgent problem and are not intended as complete care. It is important for you to follow up with a doctor, nurse practitioner, or physician?s culture media laboratory assistant for ongoing care. If your symptoms [...] so we can reach you if necessary. [facility] Emergency Department has provided you with a complete list of medications post discharge. Please inform your paralegal assistant/provider of your visit and for further instruction [...] Follow these instructions at home: ? Take ihut-nrk-jkchhmt medicines only as told by your health [...] 10/27/2005 Document Revised: 05/15/2017 Document Reviewed: 07/09/2016 [employer] Interactive Patient Education ? 2019 [employer]. Pharyngitis Pharyngitis is redness, pain, and [...] Follow these instructions at home: ? Take vpmu-phx-dnspgyt and prescription medicines only as told by [...] 09/19/2006 Document Revised: 10/25/2017 Document Reviewed: 10/25/2017 [employer] Interactive Patient Education ? 2019 [employer]. Viruses or Bacteria What?s got you [...] for Disease Control and Prevention June 2014 [facility] Strep Aon 09-04-2019 Strep procedure control Pass [facility] Comment on above: Performed By: #### [id number] ####[facility] (DEFAULT)[address] [place] [address] Streptococcus A Negative [place] Negative [facility] Comment on above: Performed By: #### [id number] ####[facility] (DEFAULT)[address] [place] [address] Coding Summaryon 09-03-2019 Coding Summary CODING DATE: 019 [facility] STATUS: Home PAYOR: Medicaid HMO ADMIT DX: [...] Alpa Norman Date Saved: 09/03/2019 01:04 pm [facility] C Throaton 09-02-2019 C Throat Ordered by Discern. Normal throat leda isolated No pathogens isolated Normal [facility] Comment on above: Performed By: #### [id number] ####[facility] (DEFAULT)[address] [place] [address] ED Clinical Summaryon 2018 ED Clinical Summary [facility] ? Urgent Care [address] [place] [address] Clinical Summary PERSON INFORMATION Name: NADIR HENDRICKSON Age: 33 Years Sex: FEMALE : 1985 MRN: Acct#: Visit Reason: UC - Sore Throat; SORE THROAT Arrival: 08/31/2019 17:03:36 Discharge: 08/31/2019 17:39:00 LOS: 000 00:36 Check In: 08/31/2019 17:03:36 Checkout: 08/31/2019 17:39:00 Address: [address] [place] [address] PCP: Rasta Palafox CNP PROVIDER INFORMATION Provider [...] Follow-Up: With: Address: When: Rasta Palafox [address] [facility], [address] [place], [place] [phone] Business (1) Comments: Your throat sore throat [...] verbalizes understanding of instructions given Comment: Normal [facility] ED Patient Summaryon 019 ED Patient Summary [facility] ? Urgent Care [address] [place] [address] PATIENT DISCHARGE INSTRUCTIONS Patient Information Name: NADIR HENDRICKSON Age: 33 Years Date of : 1985 Reason For Visit: UC - Sore Throat; SORE THROAT Arrival Time: 08/31/2019 17:03:36 Primary Care Physician: Rasta Palafox CNP Attending Physician: Esteban Barry Comment: Patient Education With: Address: When: Rasta Palafox [address] [facility], [address] [place], [place] [phone] Business (1) Comments: Your throat sore throat [...] Follow these instructions at home: ? Take pchx-fhp-pcvogyl medicines only as told by your health [...] 10/27/2005 Document Revised: 05/15/2017 Document Reviewed: 07/09/2016 [employer] Interactive Patient Education ? 2019 [employer]. Medication Information: The exam and treatment you received today in the [facility] were for an urgent problem and are not intended as complete care. It is important for you to follow up with a doctor, nurse practitioner, or physician?s culture media laboratory assistant for ongoing care. If your symptoms [...] so we can reach you if necessary. [facility] Emergency Department has provided you with a complete list of medications post discharge. Please inform your paralegal assistant/provider of your visit and for further instruction [...] viral pharyngitis (J02.8) UC - Sore Throat ([id number]) If you received any narcotics, sedation, or any other medication that causes drowsiness for the next 24 hours, unless otherwise directed: ? Do not drive a car. ? Do not operate machinery such as power tools, [employer] mowers, drills, sewing machines, or stoves ? [...] Stop date 08/31/19 17:10:00 EST, Nurse collect, [phone] Radiology Cardiology Viruses or Bacteria What?s got [...] for Disease Control and Prevention June 2014 [facility] Patient Handouton 08-31-2019 Patient Handout Patient [...] Follow these instructions at home: ? Take cwgi-afa-usnecyn medicines only as told by your health [...] 10/27/2005 Document Revised: 05/15/2017 Document Reviewed: 07/09/2016 [employer]ab[employer] Interactive Patient Education ? 2019 [employer]. Normal [facility] Strep Aon 08-31-2019 Strep procedure control Pass Normal [facility] Comment on above: Performed By: #### [id number] ####[facility] (DEFAULT)[address] [place] [address] Streptococcus A Negative Normal Negative [facility] Comment on above: Performed By: #### [id number] ####[facility] (DEFAULT)[address] [place] [address] Urgent Care Note- Provideron 08-31-2019 Urgent Care [...] signs of peritonsillar abscess. Patient's afebrile. Chloraseptic [place], fluids, salt water gargle. Ibuprofen every 8 hours as needed for discomfort. Tylenol every 4-6 hours as needed for pain. Impression and Plan Diagnosis Acute viral pharyngitis (RCO98-HC J02.8, Discharge, Medical) Plan Condition: Stable. Disposition: [...] prescription, Patient indicated understanding of instructions. Normal [facility]gent Care [place] 019 Urgent Care Record [facility] ? Urgent Care [address] [id number] PATIENT DISCHARGE INSTRUCTIONS Patient Information Name: NADIR HENDRICKSON Age: 33 Years Date of : 1985 Reason For Visit: UC - Sore Throat; SORE THROAT Arrival Time: 08/31/2019 17:03:36 Primary Care Physician: Rasta Palafox CNP Attending Physician: Esteban Barry Comment: Visit Diagnosis: Diagnoses This Visit Acute viral pharyngitis (J02.8) UC - Sore Throat ([id number]) If you received any narcotics, sedation, or [...] documents With: Address: When: Rasta Palafox [address] [facility], [address] [place] [address] Business (1) Comments: Your throat sore throat [...] and treatment you received today in the [facility] Urgent Care were for an urgent problem and are not intended as complete care. It is important for you to follow up with a doctor, nurse practitioner, or physician?s culture media laboratory assistant for ongoing care. If your symptoms [...] so we can reach you if necessary. [facility] has provided you with a complete list of medications post discharge. Please inform your paralegal assistant/provider of your visit and for further instruction [...] Follow these instructions at home: ? Take bytt-ulz-czbnbdh medicines only as told by your health [...] 10/27/2005 Document Revised: 05/15/2017 Document Reviewed: 07/09/2016 [employer]Dab[employer] Interactive Patient Education ? 2019 [employer]. Viruses or Bacteria What?s got you sick? [...] Disease Control and Prevention June 2014 Normal [facility] Vital Signs Date Time Vital Sign Value Performing Clinician Facility 11-07-2024 19:13-050 Body height 149.9 cm [facility] 11-07-2024 19:13-0500 Body mass index (BMI) [Ratio] 54.13 kg/m2 [facility] 11-07-2024 19:13050 Body weight 121.56 kg [facility] 09-10-2024 09:03-0500 Body height 149.9 cm Yamile Lowe PA Work Phone: [facility] 09-10-2024 09:03-0500 Body mass index (BMI) [Ratio] 54.33 kg/m2 Yamile Lowe PA Work Phone: [facility] 09-10-2024 09:03-0500 Body weight 122.02 kg Yamile Lowe PA Work Phone: [facility] 09-10-2024 09:03-0500 Diastolic blood pressure 84 mm[Hg] Yamile Lowe PA Work Phone: [facility] 09-10-2024 09:03-0500 Systolic blood pressure 128 mm[Hg] Yamile Lowe PA Work Phone: [facility] 08-13-2024 14:57-0500 Body height 149.9 cm Katherine Doss MD Work Phone: [facility] 08-13-2024 14:57-0500 Body mass index (BMI) [Ratio] 54.22 kg/m2 Katherine Doss MD Work Phone: [facility] 08-13-2024 14:57-0500 Body weight 121.84 kg Katherine Doss MD Work Phone: [facility] 08-13-2024 14:57-0500 Diastolic blood pressure 56 mm[Hg] Katherine Doss MD Work Phone: [facility] Comment on above: right arm 84/57 xl cuff used 08-13-2024 14:57-0500 Heart rate 76 /min Katherine Doss MD Work Phone: [facility] 08-13-2024 14:57-0500 SaO2% (BldA) [Mass fraction] 98 % Katherine Doss MD Work Phone: [facility] 08-13-2024 14:57-0500 Systolic blood pressure 86 mm[Hg] Katherine Doss MD Work Phone: [facility] Comment on above: right arm 84/57 xl cuff used 07-20-2024 09:54-0400 Body height 149.9 cm Laurent Sierra DPM Work Phone: [facility] 07-20-2024 09:54-0400 Body mass index (BMI) [Ratio] 53.32 kg/m2 Laurent Sierra DPM Work Phone: [facility] 07-20-2024 09:54-0400 Body weight 119.75 kg Laurent Sierra DPM Work Phone: [facility] 03-06-2024 14:15-0400 Body height 149.9 cm [facility] 4yr [facility] 03-06-2024 14:15-0400 Body mass index (BMI) [Ratio] 54.1 kg/m2 [facility] 4yr [facility] 03-06-2024 14:15-0400 Body weight 121.56 kg [facility] 4yr [facility] 03-06-2024 14:15-0400 Diastolic blood pressure 82 mm[Hg] [facility] 4yr [facility] 03-06-2024 14:15-0400 Systolic blood pressure 106 mm[Hg] [facility] 4yr [facility] 02-21-2024 11:11-0400 Body height 149.9 cm Dwayne Senior DO Work Phone: [facility] 02-21-2024 11:11-0400 Body mass index (BMI) [Ratio] 55.66 kg/m2 Dwayne Senior DO Work Phone: [facility] 02-21-2024 11:11-0400 Body weight 125.01 kg Dwayne Senior DO Work Phone: [facility] 02-21-2024 11:11-0400 Diastolic blood pressure 68 mm[Hg] Dwayne Senior DO Work Phone: [facility] 02-21-2024 11:11-0400 Systolic blood pressure 124 mm[Hg] Dwayne Senior DO Work Phone: [facility] 02-06-2024 08:27-0400 Body height 149.9 cm [facility] 02-06-2024 08:27-0400 Body mass index (BMI) [Ratio] 54.86 kg/m2 [facility] 02-06-2024 08:27-0400 Body weight 123.2 kg [facility] 02-06-2024 08:27-0400 Diastolic blood pressure 84 mm[Hg] [facility] 02-06-2024 08:27-0400 Systolic blood pressure 132 mm[Hg] [facility] 12-12-2023 12:06-0400 Body height 149.9 cm Katherine Doss MD Work Phone: [facility] 12-12-2023 12:06-0400 Body mass index (BMI) [Ratio] 53.73 kg/m2 Katherine Doss MD Work Phone: [facility] 12-12-2023 12:06-0400 Body weight 120.66 kg Katherine Doss MD Work Phone: [facility] 12-12-2023 12:06-0400 Diastolic blood pressure 78 mm[Hg] Katherine Doss MD Work Phone: [facility] 12-12-2023 12:06-0400 Heart rate 67 /min Katherine Doss MD Work Phone: [facility] 12-12-2023 12:06-0400 SaO2% (BldA) [Mass fraction] 96 % Katherine Doss MD Work Phone: [facility] 12-12-2023 12:06-0400 Systolic blood pressure 129 mm[Hg] Katherine Doss MD Work Phone: [facility] 12-22-2020 11:30-0400 Body Temperature 98.4 [degF] [facility] Work Phone: 12-22-2020 11:30-0400 BP Diastolic 73 mm[Hg] [facility] Work Phone: 12-22-2020 11:30-0400 BP Systolic 102 mm[Hg] [facility] Phone: 12-22-2020 11:30-0400 Pulse (Heart Rate) 79 /min [facility] Phone: 12-22-2020 11:30-0400 Pulse Oximetry 99 % [facility] Phone: 12-22-2020 11:30-0400 Respiratory Rate 18 /min [facility] Phone: 12-22-2020 08:14-0400 BMI (Body Mass Index) 54.13 kg/m2 [facility] Phone: 12-22-2020 08:14-0400 Body weight 121.56 kg [facility] Phone: 12-22-2020 08:14-0400 Height 149.9 cm [facility] Phone: 03-31-2020 12:41-0400 Body Temperature 97.2 [degF] [place] 03-31-[place] 12:41-0400 BP Diastolic 77 mm[Hg] [facility] [place] 03-31-2020 12:41-0400 BP Systolic 125 mm[Hg] [facility] , [place] 03-31-2020 12:41-0400 Pulse (Heart Rate) 80 /min [facility] [place] 03-31-2020 12:41-0400 Pulse Oximetry 96 % [facility] , [place] 03-31-2020 12:41-0400 Respiratory Rate 17 /min [facility] 03-31-2020 11:32-0400 BMI (Body Mass Index) 54.13 kg/m2 [facility], [place] 03-31-2020 11:32-0400 Body weight 121.56 kg [facility] , [place] 03-31-2020 11:32-0400 Height 149.9 cm [facility] [place] , [place] Encounters Encounter Date Encounter Type Care Provider Facility Start: 11-23-2024 End: 11-23-2024 Documentation procedure Katherine Doss MD Work Phone: [facility] Start: 11-23-2024 End: 11-23-2024 Telephone encounter Ema Reynoso [facility] Start: 11-07-2024 End: 11-07-2024 Clinical Support Katherine Doss MD Work Phone: [facility] Comment on above: MUKESH (obstructive sle ep apnea) Start: 11-07-[address] [facility] Start: 10-02-2024 End: 10-04-2024 Refill [facility] MD [facility] Comment on above: Moderate persistent asthma, unspecified whether complicated Start: 09-10-2024 End: 09-10-2024 Bamboo flowsheet Yamile Lowe PA Work Phone: [facility] Start: 09-10-2024 End: 09-10-2024 Bamboo flowsheet Yamile Lowe PA Work Phone: [facility] Start: 09-10-2024 End: 09-10-2024 Telephone encounter Yamile Lowe PA Work Phone: [facility] Start: 09-10-2024 End: 09-10-2024 Office outpatient visit 25 minutes Yamile Lowe PA Work Phone: [facility] Comment on above: Paresthesia (Primary Dx) Start: 09-10-2024 End: 09-10-2024 ambulatory YAMILE LOWE Not Available Start: 09-03-2024 End: 09-04-2024 Refill Katherine Doss MD Work Phone: [facility] Comment on above: Moderate persistent asthma, unspecified whether complicated Start: 08-15-2024 End: 08-15-2024 Telephone encounter Katherine Doss MD Work Phone: [facility] Comment on above: Sleep Lab (HST) Start: 08-14-2024 End: 08-14-2024 Telephone encounter Orders Support User Transcribe [facility] Comment on above: Sleep Lab (PSG Order ) Start: 08-13-2024 End: 08-13-2024 ambulatory KATHERINE DOSS [facility] Start: 08-13-2024 End: 08-13-2024 Office outpatient visit 15 minutes Katherine Doss MD Work Phone: [facility] Comment on above: MUKESH (obstructive sle ep apnea) (Primary Dx) Start: 07-20-2024 End: 07-20-2024 Bamboo flowsheet Laurent Sierra DPM Work Phone: [facility] Start: 07-20-2024 End: 07-20-2024 Bamboo flowsheet Laurent Sierra DPM Work Phone: [facility] Start: 07-20-2024 End: 07-20-2024 Office outpatient visit 15 minutes Laurent Sierra DPM Work Phone: [facility] Comment on above: Capsulitis of right foot (Primary Dx); Sprain of ligament of tarsometatarsal joint of right foot, sequela; Pain in joint of right foot; Difficulty walking Start: 07-20-2024 End: 07-20-2024 ambulatory LAURENT SIERRA Not Available Start: 07-18-2024 End: 07-18-2024 ambulatory LAURENT SIERRA Not Available Start: 07-18-2024 End: 07-18-2024 Patient encounter procedure Laurent Sierra DPM Work Phone: [facility] Comment on above: Dystrophic nail (Chantal nadir Dx); Onychocryptosis; Pain around toenail, right foot; Pain around toenail, left foot Start: 07-18-2024 End: 07-18-2024 Bamboo flowsheet Laurent Sierra DPM Work Phone: [facility] Start: 07-18-2024 End: 07-18-2024 Bamboo flowsheet Laurent Sierra DPM Work Phone: [facility] Start: 07-17-2024 End: 07-17-2024 Bamboo flowsheet Laurent Sierra DPM Work Phone: [facility] Start: 07-17-2024 End: 07-17-2024 Bamboo flowsheet Laurent Sierra DPM Work Phone: [facility] Start: 05-28-2024 End: 05-28-2024 Telephone encounter [facility] Work Phone: [facility] Start: 04-24-2024 End: 04-24-2024 Telephone encounter [facility] Work Phone: [facility] Start: 04-12-2024 End: 04-12-2024 ambulatory DELMY C WINDNAGEL Not Available Start: 03-29-2024 End: 03-29-2024 Telephone encounter [facility] Work Phone: [facility] Start: 03-28-2024 End: 03-28-2024 ambulatory LAURENT SIERRA Not Available Start: 03-20-2024 End: 03-20-2024 Telephone encounter [facility] Work Phone: [facility] Start: 03-15-2024 End: 03-15-2024 ambulatory LAURENT RAGLAND Not Available Start: 03-14-2024 End: 03-14-2024 ambulatory DELMY C WINDNAGEL Not Available Start: 03-06-2024 End: 03-06-2024 Office outpatient new 30 minutes [facility] Comment on above: Request for steriliz ation (Primary Dx); Obesity, morbid, BMI 50 or higher (CMS-HCC); Type 2 diabetes mellitus with diabetic polyneuropathy, without long-term current use of insulin (CMS-HCC); Chronic ulcer of right midfoot limited to breakdown of skin (CMS-HCC); Psychogenic nonepileptic seizure; Moderate recurrent major depression (CMS-HCC); Shortness of breath; Learning disability; Primary hypertension; Asthma, unspecified asthma severity, unspecified whether complicated, unspecified whether persistent; Pre-op exam Start: 03-06-2024 End: 03-06-2024 Preprocedural examination done [facility] 4yr [facility] Start: 03-06-2024 End: 03-06-2024 ambulatory [facility] Start: 03-06-2024 Encounter for other preprocedural examination [facility] Start: 02-21-2024 End: 02-21-2024 Admission to same day surgery center Dwayne Clint Senior DO Work Phone: [facility] Work Phone: Start: 02-21-2024 End: 02-21-2024 Office outpatient visit 15 minutes Dwayne Senior DO Work Phone: [facility] Comment on above: Preoperative exam fo r gynecologic surgery (Primary Dx); Obesity, morbid, BMI 50 or higher (CMS-HCC); Type 2 diabetes mellitus with diabetic polyneuropathy, without long-term current use of insulin (CMS-HCC); Chronic ulcer of right midfoot limited to breakdown of skin (CMS-HCC); Psychogenic nonepileptic seizure; Moderate recurrent major depression (CMS-HCC); Shortness of breath; Learning disability; Primary hypertension; Asthma, unspecified asthma severity, unspecified whether complicated, unspecified whether persistent; Request for sterilization Start: 02-21-2024 End: 02-21-[address] [facility] Start: 02-06-2024 End: 02-06-2024 Patient encounter procedure [facility]pper [facility] Work Phone: Start: 02-06-2024 End: 02-06-2024 Periodic preventive med est patient 18-39 yrs [facility] [place] Comment on above: Well woman exam with routine gynecological exam (Primary Dx); Standardized adult depression screening tool completed; Request for sterilization Start: 02-06-2024 End: 02-06-2024 ambulatory INGRID MCDONNELL [facility] Start: 12-12-2023 End: 12-12-2023 Office outpatient visit 15 minutes Katherine Doss MD Work Phone: [facility] Comment on above: MUKESH (obstructive sle ep apnea) (Primary Dx) Start: 12-12-2023 End: 12-12-2023 ambulatory KATHERINE DOSS [facility] Start: 12-07-2023 End: 12-07-2023 ambulatory LAURENT Scotty SIERRA Not Available Start: 11-08-2023 Refill Katherine fiore MD Work Phone: [facility] Comment on above: Moderate persistent asthma, unspecified whether complicated Start: 10-10-2023 Refill Katherine fiore MD Work Phone: [facility] Comment on above: Moderate persistent asthma, unspecified whether complicated Start: 02-13-2023 End: 02-13-2023 ambulatory GEOVANNI ROBBIE . Facility: Start: 01-05-2021 End: 01-05-2021 Patient encounter procedure [facility] Start: 12-22-2020 End: 12-22-2020 Patient encounter procedure [facility] Start: 12-22-2020 End: 12-22-2020 Subsequent hospital visit by physician Kolby Ellis Work Phone: [facility] Comment on above: Post-op pain (Primar y Dx) Start: 03-31-2020 End: 03-31-2020 Patient encounter procedure [facility] Start: 03-31-2020 End: 03-31-2020 Subsequent hospital visit by physician Kolby Ellis Work Phone: [facility] Start: 03-27-2020 End: 03-27-2020 Subsequent hospital visit by physician [facility] Covid19 Pat Screening Schedule [facility] Pre-Admit Testing Comment on above: No Show Procedures Date Procedure Procedure Detail Performing Clinician Start: 07-20-2024 Radex foot complete minimum 3 views Laurent Sierra DPM Work Phone: Start: 03-06-2024 Urine test visual color cmprsn meths Beatrice Pina DO Work Phone: Start: 02-06-2024 Adult depression scr eening assessment [facility] Tobacco Dipper Start: 12-12-2023 Follow-up visit Follow-up KATHERINE DOSS Start: 09-11-2021 Adult depression scr eening assessment Katherine Doss MD Work Phone: Start: 12-22-2020 Glucose blood reagen t strip Wi[facility] Work Phone: Start: 12-22-2020 Fluoroscopy during operation [facility] Work Phone: Start: 12-22-2020 Gonadotropin chorion ic qualitative Rosana Wilhelm Work Phone: Start: 12-22-2020 Glucose blood reagen t strip Wi3 Work Phone: Start: 06-10-2020 Microscopic observat ion [Identifier] in Cervix by Cyto stain Katherine Doss MD Work Phone: Start: 03-31-2020 DISCHARGE PATIENT MACARIO CULVER Start: 03-31-2020 Urine test visual color cmprsn meths INGRID CULVER Start: 03-31-2020 Urine test visual color cmprsn meths Kolby [employer] Work Phone: Plan of Treatment Date Care Activity Detail Author Start: 11-26-2030 DTaP,Tdap and Td Vaccines (2 - Tdap) DTaP,Tdap and Td Vaccines (2 - Tdap) [facility] Start: 11-07-2025 Adult BMI Screening Adult BMI Screen ing [facility] Start: 11-07-2025 Tobacco Screening Tobacco Screening [facility] Start: 08-13-2025 Adult BMI Screening Adult BMI Screen ing [facility] Start: 04-15-2025 End: 04-15-2025 Patient encounter procedure 04/15/2025 2:30 PM EDT Office Visit [facility] [address] [place] [phone] Katherine Doss MD [address] [place] [address] [facility] Start: 03-06-2025 Adult BMI Screening Adult BMI Screen ing [facility] Start: 03-06-2025 Tobacco Screening Tobacco Screening [facility] Start: 02-20-2025 Adult BMI Screening Adult BMI Screen ing [facility] Start: 02-20-2025 Tobacco Screening Tobacco Screening [facility] Start: 02-05-2025 Adult BMI Follow Up Plan Adult BMI Follow Up Plan [facility] Start: 02-05-2025 Adult BMI Screening Adult BMI Screen ing [facility] Start: 02-05-2025 Depression Screening Depression Scre ening [facility] Start: 02-05-2025 Tobacco Screening Tobacco Screening [facility] Start: 12-18-2024 End: 12-18-2024 Patient encounter procedure 12/18/2024 2:20 PM EDT Office Visit [facility] [place] [place] [phone] Yamile Lofton PA [address] [place] [phone] [facility] [address] Start: 12-11-2024 Adult BMI Screening Adult BMI Screen ing [facility] Start: 09-10-2024 End: 09-10-2025 MR Lumbar spine WO contrast MR lumbar spine wo contrast Imaging Routine Paresthesia Expected: 09/10/2024, Expires: 09/10/2025 [facility] Work Phone: Comment on above: Expected: 09/10/2024 , Expires: 09/10/2025 Start: 09-10-2024 End: 09-10-2024 Patient encounter procedure 09/10/2024 9:00 AM EST Office Visit [facility] [address] [address] [place] [phone] Yamile Lofton PA [address] [place], [place] [phone] Arrived [facility] Comment on above: Arrived Start: 08-27-2024 End: 08-27-2024 Patient encounter procedure 08/27/2024 1:20 PM EST Office Visit [facility] [place] [address] [place] [phone] Delmy Pichardo, GEOMETRY PROFESSOR [address] [place], [place] [phone] [facility] [place] Start: 07-31-2024 End: 07-31-2024 Patient encounter procedure 07/31/2024 10:45 AM EDT Office Visit [facility] [address] [facility] [place] [address] Laurent Sierra DPM [address] [place] [address] [facility] Start: 07-20-2024 End: 07-20-2024 Patient [facility] Comment on above: Arrived Start: 07-18-2024 End: 07-18-2024 Patient encounter procedure 07/18/2024 2:15 PM EDT Procedure Visit [facility] [address] [place] [address] Laurent Sierra DPM [address] [place] [address] Arrived [facility] Comment on above: Arrived Start: 07-16-2024 End: 07-16-2024 Admission to same day surgery center 07/16/2024 11:30 AM EDT - 07/16/2024 1:00 PM EDT Surgery [facility] [address] [place] [address] [address] Beatrice Pina, DO [address] [address] LAPAROSCOPIC SALPINGECTOMY [44001 (CPT )] [facility] Comment on above: LAPAROSCOPIC SALPING ECTOMY [13734 (CPT )] Start: 07-16-2024 End: 07-16-2024 Laparoscopy w/rmvl adnexal structures LAPAROSCOPIC SALPINGECTOMY desires sterilizaiton 07/16/2024 11:30 AM EDT [facility] Start: 07-16-2024 Subsequent hospital visit by physician 07/16/2024 11:30 AM EDT Hospital Encounter [facility] [address] [place] [phone] Beatrice Pina, DO [address] [place] [address] [place] [address] [facility] Start: 07-16-2024 End: 07-16-2024 Admission to same day surgery center 07/16/2024 7:30 AM EDT - 07/16/2024 9:00 AM EDT Surgery [facility] [address] [place] [phone] Beatrice Pina, DO [address] [place] [address] [place] [address] LAPAROSCOPIC SALPINGECTOMY [71470 (CPT )] [facility] Comment on above: LAPAROSCOPIC SALPING ECTOMY [88529 (CPT )] Start: 07-16-2024 End: 07-16-2024 Laparoscopy w/rmvl adnexal structures LAPAROSCOPIC SALPINGECTOMY desires sterilizaiton 07/16/2024 7:30 AM EDT [facility] Start: 07-16-2024 Subsequent hospital visit by physician 07/16/2024 7:30 AM EDT Hospital Encounter [facility] [address] [place] [phone] Beatrice Pina, DO [address] [address] [facility] Start: 07-02-2024 End: 07-02-2024 Admission to establishment 07/02/2024 10:30 AM EDT [facility] On [address] [address] [facility] Start: 06-25-2024 End: 06-25-2024 Patient encounter procedure 06/25/2024 2:30 PM EDT Office Visit [facility] [place] [phone] Katherine Doss MD [address] [place] [address] [facility] Start: 06-21-2024 End: 06-21-2024 Patient encounter procedure 06/21/2024 2:15 PM EDT Office Visit [facility] - [facility]'s Services [facility] [place] [place] [phone] [facility] Start: 06-11-2024 End: 06-11-2024 Admission to same day surgery center 06/11/2024 2:30 PM EDT - 06/11/2024 4:00 PM EDT Surgery [facility] [address] [place] [phone] Beatrice Pina, DO [address] [address] LAPAROSCOPIC SALPINGECTOMY [16819 (CPT )] [facility] Comment on above: LAPAROSCOPIC SALPING ECTOMY [62529 (CPT )] Start: 06-11-2024 End: 06-11-2024 Laparoscopy w/rmvl adnexal structures LAPAROSCOPIC SALPINGECTOMY desires sterilizaiton 06/11/2024 2:30 PM EDT [facility] Start: 06-11-2024 Subsequent hospital visit by physician 06/11/2024 2:30 PM EDT Hospital Encounter [address] [phone] Beatrice Pina, DO [address] [place] [address] [facility] Start: 06-03-2024 COVID-19 Vaccine ( season) COVID-19 Vaccine () [facility] Start: 06-03-2024 Influenza vaccination N [facility] Start: 05-31-2024 End: 05-31-2024 Patient encounter procedure [place] [facility] - Women's Services Start: 05-28-2024 End: 05-28-2024 Admission to establishment 05/28/2024 9:30 AM EDT Support Visit [facility]Ad[facility] On [address] [phone] [facility] On [facility] Start: 05-14-2024 End: 05-14-2024 Admission to same day surgery center 05/14/2024 2:30 PM EDT - 05/14/2024 4:00 PM EDT Surgery [facility] [address] [place] [address] [place] [address] Beatrice Pina, DO [address] [place] [address] [place] [address] LAPAROSCOPIC SALPINGECTOMY [91309 (CPT )] [facility] Comment on above: LAPAROSCOPIC SALPING ECTOMY [42593 (CPT )] Start: 05-14-2024 End: 05-14-2024 Laparoscopy w/rmvl adnexal structures LAPAROSCOPIC SALPINGECTOMY desires sterilizaiton 05/14/2024 2:30 PM EDT [facility] Start: 05-14-2024 Subsequent hospital visit by physician 05/14/2024 2:30 PM EDT Hospital Encounter [facility] [address] [place] [address] Beatrice Pina DO [address] [address] [facility] Start: 04-30-2024 End: 04-30-2024 Admission to establishment 04/30/2024 9:30 AM EDT Support Visit [facility] Pre-Admission Clinic On [facility] [address] [place] [phone] [facility] Pre-Admission Clinic On [facility] Start: 04-11-2024 Adult BMI Screening Adult BMI Screen [facility] Start: 03-06-2024 End: 03-06-2024 Patient encounter procedure 03/06/2024 2:15 PM EDT Office Visit [facility] [address] [place] [phone] [facility] Start: 02-21-2024 End: 02-21-2024 Patient encounter procedure 02/21/2024 11:00 AM EDT Office Visit [facility] [address] [place] [address] Dwayne Senior DO [address] [place], [place] [phone] [facility] Start: 02-06-2024 End: 02-06-2024 Patient encounter procedure 02/06/2024 8:30 AM EDT [facility] Visit [facility] [place] [address] [place] [address] [facility] [place] Start: 02-02-2024 Adult BMI Follow Up Plan Adult BMI Follow Up Plan [facility] Start: 02-02-2024 Tobacco Screening Tobacco Screening [facility] Start: 12-12-2023 End: 12-12-2023 Patient encounter procedure 12/12/2023 12:15 PM EDT [facility] [address] [place] [address] Katherine Doss MD [address] [place] [address] [facility] Start: 06-10-2023 Screening for malign ant neoplasm of cervix Pap Smear [facility] Start: 06-03-2023 COVID-19 Vaccine ( season) COVID-19 Vaccine () [facility] Start: 06-03-2023 Influenza vaccination Influenza Vacc ine [facility] Start: 09-11-2022 Depression Screening Depression [facility] Start: 01-05-2021 End: 01-05-2021 Hospital Encounter [facility] Comment on above: 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 Start: 06-03-2020 Influenza vaccination [place], [place] Start: 2015 Screening for malign ant neoplasm of cervix [facility] Start: 2006 Screening for malign ant neoplasm of cervix [facility] Start: 2004 DTaP/Tdap/Td vaccine (1 - Tdap) DTaP/Tdap/Td vaccine (1 - Tdap) [place], [place] Start: 2003 Diabetic foot examination Diabetic Foot Exam [facility] Start: 2001 COVID-19 Vaccine (1) COVID-19 Vaccin e (1) [facility] Work Phone: Start: 2000 HIV screening HIV screen [facility], [place] Start: 1995 Lipid panel Lipid screen [facility] Work Phone: Start: 1986 Varicella vaccine (1 of 2 - 2-dose childhood series) Varicella vaccine (1 of 2 - 2-dose childhood series) [place], [place] Start: 1985 Creatinine measurement Creatinine mo nitoring [facility] [employer] Phone: Start: 1985 Glaucoma screening Diabetic Op hthalmology Exam [facility] [employer] [facility] Start: 1985 Hepatitis C screening Hepatitis C sc reen [facility] [employer] Phone: Start: 1985 Potassium monitoring Potassium monit oring [facility] [employer] Phone: End: 12-23-2020 Blood glucose - POCT Blood glucose - POCT Point of Care Testing Routine One Time for 1 Occurrences starting 12/23/2020 until 12/23/2020 [facility] Phone: Comment on above: One Time for 1 Occur rences starting 12/23/2020 until 12/23/2020 Continuous pulse oximetry Pulse oximetry, continuous Respiratory Care Routine Every 4hr until discontinued starting 12/23/2020 [facility] Phone: Comment on above: Every 4hr until disc ontinued starting 12/23/2020 End: 03-27-2020 COVID-19 COVID-19 Lab Routine One Time for 1 Occurrences starting 03/27/2020 until 03/27/2020 [place] Comment on above: One Time for 1 Occur rences starting 03/27/2020 until 03/27/2020 End: 08-13-2025 [facility] Routine MUKESH (obstructive sleep apnea) 1 Occurrences starting 08/13/2024 until 08/13/2025 [employer] Work Phone: Comment on above: 1 Occurrences starti ng 08/13/2024 until 08/13/2025 Immunizations Immunization Date Immunization Notes Care Provider Fa cilichao 11-26-2020 diphtheria, tetanus toxoids and pertussis vaccine Katherine Doss MD Work Phone: [facility] 07-30-2020 influenza, injectabl e, quadrivalent, preservative free Laurent Zacharyher DPM Work Phone: [facility] 07-30-2020 influenza virus vaccine, unspecified formulation Laurent Rusher DPM Work Phone: [facility] 06-26-2020 influenza virus vaccine, unspecified formulation Katherine Doss MD Work Phone: [facility] 06-28-2019 influenza, injectabl e, quadrivalent, contains preservative Laurent Rusher DPM Work Phone: [facility] Healthcare Payers Date Payer Category Payer Medicaid (Managed Care) [employer] [id number] 2014 Unknown [facility] xxxxxxxxxxxx 2014-Present [phone] [place] [address] xxxxxxxxxxxx [id number] 2003 Medicaid [employer] [id number] 2003-Present [phone] [place] [phone] [id number] 2003 Medicaid HMO [employer] [id number] 1985 Unknown [id number] 2.16.840.1.013205.3.579.2. 177 1985 Unknown [id number] 2.16.840.1.707311.3.579.2. 177 1985 Unknown [id number] 2.16.840.1.983832.3.579.2. 175 1985 Unknown [id number] 2.16.840.1.855153.3.579.2. 593 1985 Unknown [id number] 2.16.840.1.201755.3.579.2. 1286 1985 Unknown [id number] 2.16.840.1.969099.3.579.2. 1286 1985 Unknown [id number] 2.16.840.1.332591.3.579.2. 1286 1985 Unknown [id number] 2.16.840.1.896966.3.579.2. 1286 1985 Unknown [id number] 2.16.840.1.550085.3.579.2. 1286 1985 Unknown [id number] 2.16.840.1.694208.3.579.2. 1259 1985 Unknown [id number] 2.16.840.1.542937.3.579.2. 1259 1985 Unknown [id number] 2.16.840.1.643000.3.579.2. 1259 1985 Unknown [id number] 2.16.840.1.447776.3.579.2. 9 1985 Unknown [id number] 2.16.840.1.388480.3.579.2. 9 1985 Unknown [id number] 2.16.840.1.801294.3.579.2. 9 1985 Unknown [id number] 2.16.840.1.393137.3.579.2. 9 1985 Unknown [id number] 2.16.840.1.684197.3.579.2. 9 1985 Unknown [id number] 2.16.840.1.192940.3.579.2. 9 1985 Unknown [id number] 2.16.840.1.957173.3.579.2. 1286 1959 Unknown [id number] 1.2.840.234915.1.13.239.2. 7.3.139093.315 Social History Date Type Detail Facility Start: 03-31-2020 End: 09-13-2022 Tobacco smoking status NHIS Never smoker [place] Start: 03-31-2020 End: 09-10-2024 Alcohol intake Lifetime non-drinker (finding) [place] Start: 03-31-2020 History SDOH Alcohol Frequency 1 [place] Start: 1985 Sex Assigned At Not on file [place], [place] Exposure to SARS-CoV -2 (event) Unable to assess [place] Start: 12-22-2020 End: 09-13-2022 Tobacco use and exposure Never used [employer] Phone: Exposure to SARS-CoV -2 (event) Not sure [employer] Phone: Start: 11-13-2020 End: 04-12-2024 History of Social function [facility] Start: 11-13-2020 End: 04-12-2024 Tobacco use panel [facility] Start: 04-27-2023 Alcohol Comment Caffeine intak e: >4 cups per day pop [facility] Start: 03-06-2024 End: 11-07-2024 Alcoholic beverage intake Current non-drinker of alcohol (finding) [facility] Adolescent depressio n screening assessment 8 [facility] Start: 1985 Sex assigned at Female P [place] Start: 08-03-2015 Sex Female (finding) [facility] Start: 04-30-2019 Gender identity Identifies as female gender (finding) [facility] Medical Equipment Procedure Code Equipment Code Equipment Original Text Equipment Identifier Dates Kit Lead Sure Scan Interstim Mri [id number] Start: 12-22-2020 Implant Lead-01/05/2021 [id number] Start: 01-05-2021 Neuro Stimulator-01/06/20 [id number] Start: 01-05-2021 Comment on above: Description: interst im II bladder stimulator Clinical Notes 12-12-2023 to 11-23-2024 Telephone Encounter - Ema Reynoso - 11/23/2024 9:59 AM ESTTelephone Encounter - Ema Reynoso - 11/23/2024 9:59 AM Bushra Doss MD - 11/23/2024 9:22 AM EST Note Date & Type Note Facility 11-23-2024 Miscellaneous Notes Katherine Doss MD at 11/23/24 0922 Status: Signed Patient needs follow up appointment scheduled. Please let her know that she should call her dentist to see if they can up-titrate her OMAD to help treat her residual MUKESH Home sleep apnea test on 2024-11-07 with OMAD (ZOLTAN (3%)=52.0 events/hour; ZOLTAN (4%)=40.9 events/hour; John SpO2=71.0%; Givuxd=833.0 lbs; BMI=54.7 kg/m2) DIAGNOSIS: Obstructive Sleep Apnea (G47.33) COMMENTS: With the oral mandibular device in lateral sleep there was still significant flow obstruction independent of body position. TREATMENT CONSIDERATIONS: Consider up titrating OMAD device with dentistry. If no room for uptitration, consider transition back to PAP therapy. documented in this encounter [facility] [employer] [facility] 11-23-2024 Telephone encounter Note Katherine Doss MD at 11/23/24921 Status: Signed Patient needs follow up appointment scheduled. Please let her know that she should call her dentist to see if they can up-titrate her OMAD to help treat her residual MUKESH Home sleep apnea test on 2024-11-07 with OMAD (ZOLTAN (3%)=52.0 events/hour; ZOLTAN (4%)=40.9 events/hour; John SpO2=71.0%; Bgkdvu=989.0 lbs; BMI=54.7 kg/m2) DIAGNOSIS: Obstructive Sleep Apnea (G47.33) COMMENTS: With the oral mandibular device in lateral sleep there was still significant flow obstruction independent of body position. TREATMENT CONSIDERATIONS: Consider up titrating OMAD device with dentistry. If no room for uptitration, consider transition back [facility] therapy. [facility] 11-23-2024 History of Presen t illness Narrative Patient needs follow up appointment scheduled. Please let her know that she should call her dentist to see if they can up-titrate her OMAD to help treat her residual MUKESH Home sleep apnea test on 2024-11-07 with OMAD (ZOLTAN (3%)=52.0 events/hour; ZOLTAN (4%)=40.9 events/hour; John SpO2=71.0%; Wmhkuo=499.0 lbs; BMI=54.7 kg/m2) DIAGNOSIS: Obstructive Sleep Apnea (G47.33) COMMENTS: With the oral mandibular device in lateral sleep there was still significant flow obstruction independent of body position. TREATMENT CONSIDERATIONS: Consider up titrating OMAD device with dentistry. If no room for uptitration, consider transition back to PAP therapy. documented in this encounter [facility] 09-10-2024 History of Presen t illness Narrative [...] Cancino Francia Heart disease Father Jose L Julita Francia Emphysema Father Jose L Julita Francia Asthma Father Jose L Julita Francia Bipolar disorder Sister Bipolar disorder Daughter Diabetes Mother's Sister Lor Ferguson Social History Tobacco Use Smoking status: Never Smokeless tobacco: Never Substance Use Topics Alcohol use: Never Comment: Caffeine intake: >4 cups per day pop Medication Documentation Review Audit Reviewed by Barb Devries MA (Brim Stitcher) on 09/10/24 at 0908 Medication Order Taking? Sig Documenting Provider Last Dose Status Apple Cider Vinegar 188 MG capsule [id number] No Apple Cider Vinegar Historical Provider, Taking Active busPIRone (Buspar) 15 MG tablet [id number] No Take 15 mg by mouth Daily Historical Provider, Taking Active Calcium Citrate-Vitamin D (Calcium + D) 315-5 MG-MCG tablet [id number] No Calcium + D Historical Provider, Taking Active cetirizine (ZyrTEC) 10 MG tablet [id number] No Historical Provider, Taking Active gabapentin (Neurontin) 400 MG capsule [id number] Take 1 capsule (400 mg) by mouth in the morning and 1 capsule (400 mg) in the evening and 1 capsule (400 mg) before bedtime. Delmy Pichardo NP Active hydroCHLOROthiazide (HYDRODiuril) 25 MG tablet [id number] No Take 25 mg by mouth Daily Historical Provider, Taking Active HYDROcodone-acetaminophen (Vanderbilt) 5-325 MG tablet [id number] No Historical Provider, Taking Active hydrOXYzine pamoate (Vistaril) 25 MG capsule [id number] No TAKE 1 CAPSULE BY MOUTH TWICE PER DAY NEEDED Historical Provider, Taking Active Januvia 100 MG tablet [id number] No Take 100 mg by mouth Daily Laurent Sierra DPM Taking Active levothyroxine (Synthroid, Levoxyl) 50 MCG tablet [id number] No Historical Provider, Taking Active lisinopril 2.5 MG tablet [id number] No Historical Provider, Taking Active loperamide (Imodium) 2 MG capsule [id number] No take 1 capsule by mouth if needed AFTER EACH LOOSE STOOL NOT TO EXCEED 8 CAPSULES PER DAY Historical Provider, Taking Active meloxicam (Mobic) 15 MG tablet [id number] No take 1 tablet by mouth once daily with food if needed for DISCOMFORT Historical Provider, Taking Active montelukast (Singulair) 10 MG tablet [id number] No Historical Provider, Taking Active nitrofurantoin, macrocrystal-monohydrate, (Macrobid) 100 MG capsule [id number] TAKE 1 CAPSULE BY MOUTH EVERY 12 HOURS WITH FOOD Historical Provider, Active omeprazole (PriLOSEC) [address] capsule [id number] No Historical Provider, Taking Active ondansetron (Zofran) 4 MG tablet [id number] No Historical Provider, Taking Active oxybutynin XL (Ditropan-XL) 10 MG 24 hr tablet [id number] No Historical Provider, Taking Active Ozempic, 1 MG/DOSE, 4 MG/3ML solution pen-injector [id number] No INJECT 1 UNITS DOSE SUBCUTANEOUSLY ON TUESDAY OF EACH WEEK Historical Provider, Taking Active predniSONE (Deltasone) 10 MG tablet [id number] 1 tablet twice daily x 7 days; followed by 1 tablet daily as directed until complete Patient not taking: Reported on 09/10/2024 Laurent Sierra DPM Active pseudoephedrine ER (Sudafed-12 Hour) 120 MG 12 hr tablet [id number] No Patient not taking: Reported on 09/10/2024 Historical Provider, Taking Active QUEtiapine (SEROquel) 100 MG tablet [id number] No Historical Provider, Taking Active sertraline (Zoloft) 100 MG tablet [id number] No Historical Provider, Taking Active SITagliptin (Januvia) 50 MG tablet [id number] No Take 100 mg by mouth in the morning. Laurent Sierra DPM Taking Active traZODone (Desyrel) 50 MG tablet [id number] No Take 50 mg by mouth at bedtime. Historical Provider, Taking Active Trulicity 0.75 MG/0.5ML solution auto-injector [id number] INJECT 0.5ml SUBCUTANEOUSLY (UNDER THE SKIN) ONCE A WEEK Laurent Sierra DPM Active Turmeric powder [id number] No as directed Historical Provider, Taking Active [...] Kt's present. Crossed adductor present. Coordination Right: Vkelyx-ur-mhya normal. Rapid alternating movement normal.Left: Slhmpi-gi-czgv normal. Rapid alternating movement normal. Gait Casual gait is normal including stance, stride, and arm swing. Motor Examination RUE Strength deltoid, biceps, triceps, wrist extensors, wrist extensors, wrist flexor, construction grip strength 5/5. LUE Strength deltoid, biceps, triceps, wrist extensors, wrist extensors, wrist flexor, construction grip strength 5/5. RLE Strength illopsoas, quadriceps, tibialis [...] in 6-8 weeks documented in this encounter [facility] 08-15-2024 Miscellaneous Notes 08/15 HST order received [...] test. Order deferred documented in this encounter [facility] 08-15-2024 Telephone encounter Note 08/15 HST order received Called PT LM to schedule sleep study. HST order & 08/13 Jose notes in epic With oral appliance [facility] 08-15-2024 Telephone encounter Note PT called to schedule PT states she does not drive and has a hard time getting a ride to the hospital, asked if she could get it mailed to her I informed the PT we do not mail the units out. She is going to wait until next month when she does a different test. Order deferred [facility] 08-14-2024 Miscellaneous Notes 08/13 Order received Called PT LM to schedule sleep study. PSG Order and 08/13 Jose notes in [place] With OMAD (does not need titration), ok to sleep on side documented in this encounter [facility] 08-14-2024 Telephone encounter Note 08/13 Order received Called PT LM to schedule sleep study. PSG Order and 08/13 Jose notes in [place] With OMAD (does not need titration), ok to sleep on side [facility] 08-13-2024 History of Presen t illness Narrative Images from the original note were not included. [address] [place] [address] Patient: Nadir Hendrickson Date of : 1985 [...] AM 12/12/2023 12:00 PM 08/13/2024 2:00 PM [place] Sleepiness Scale Sitting and Reading 2 0 [...] Alcohol Use No documented in this encounter [facility] 08-13-2024 Instructions Katherine Doss MD - 08/13/2024 2:30 PM EST 1. PSG with OMAD with side sleep 2. Please call Dr. Abreu to let him know you're snoring with the OMAD in 3. Symbicort as needed 4. Follow up in 6 months documented in this encounter [facility] 07-20-2024 History of Presen t illness Narrative [...] by mouth Daily, Disp: , Rfl: HYDROcodone-acetaminophen (Vanderbilt) 5-325 MG tablet, , Disp: , Rfl: [...] Jose L Feldman Hyperlipidemia Father Jose L Cancino Francia Heart disease Father Jose L Feldman Emphysema [...] Laurent Sierra DPM documented in this encounter [facility] 07-20-2024 Instructions Laurent Sierra DPM - 07/20/2024 9:30 AM EDT As noted documented in this encounter [facility] 07-18-2024 History of Presen t illness Narrative [...] LV 05/03/24, A1C: 2.5, BS: n/a, SS: 7.5EE). [...] by mouth Daily, Disp: , Rfl: HYDROcodone-acetaminophen (Vanderbilt) 5-325 MG tablet, , Disp: , Rfl: [...] Laurent Sierra DPM documented in this encounter [facility] 07-18-2024 Instructions Laurent Sierra DPM - 07/18/2024 2:15 PM EDT As noted documented in this encounter [facility] 05-28-2024 Miscellaneous Notes Summary: Surgery Time Change Multicut Line Operator sent message to patient that her surgery on 07/16/2024 @ [facility] has a time change. Arrival: 9:30 AM Surgery: 11:30 AM documented in this encounter [facility] 05-28-2024 Telephone encounter Note Summary: Surgery Time Change Multicut Line Operator sent message to patient that her surgery on 07/16/2024 @ [facility] has a time change. Arrival: 9:30 AM Surgery: 11:30 AM [facility] 04-24-2024 Miscellaneous Notes Summary: New Surgery Date Multicut Line Operator rescheduled procedure to 07/16/2024 [address] [facility] [address] Pina; PAT appt also rescheduled... updated surgery letter sent to patient thru My Chart and by mail.. surgeon informed of date and time. documented in this encounter [facility] 04-24-2024 Telephone encounter Note Summary: New Surgery Date Multicut Line Operator rescheduled procedure to 07/16/2024 @ [facility] [address] Pina; PAT appt also rescheduled... updated surgery letter sent to patient thru My Chart and by mail.. surgeon informed of date and time. [facility] 03-29-2024 Miscellaneous Notes Summary: New Surgery Date Multicut Line Operator rescheduled patient's surgery date to 06/11/2024 @ [facility] Dr Pina... PAT appt also rescheduled... updated letter sent to patient thru My Chart and by mail documented in this encounter [facility] 03-29-2024 Telephone encounter Note Summary: New Surgery Date Multicut Line Operator rescheduled patient's surgery date to 06/11/2024 @ [facility] with Dr Pina... PAT appt also rescheduled... updated letter sent to patient thru My Chart and by mail [facility] 03-20-2024 Miscellaneous Notes Summary: Surgery 05/14/2024 Multicut Line Operator scheduled patient for 05/14/2024 @ [facility] (due to BMI) with Dr Pina.. PAT phone call also scheduled... surgeon informed of date and time... surgery letter sent thru My Chart and by mail.. all documents scanned into chart. *Patient also reminded to schedule medical clearance with PCP documented in this encounter [facility] 03-20-2024 Telephone encounter Note Summary: Surgery 05/14/2024 Multicut Line Operator scheduled patient for 05/14/2024 @ [facility] (due to BMI) with Dr Pina.. PAT phone call also scheduled... surgeon informed of date and time... surgery letter sent thru My Chart and by mail.. all documents scanned into chart. *Patient also reminded to schedule medical clearance with PCP [facility] 03-06-2024 History of Presen t illness Narrative Images from the original note were not included. Chief Complaint: Contraception SUBJECTIVE HPI Nadir Hendrickson is a 38 y.o. who presents to discuss sterilization. Patient reports her is getting out of skilled nursing this year and she would like peace of mind about . She currently has a Mirena IUD that she has had since 2019 and is comfortable with that. We discussed today that Mirena IUD prevents at higher percentage done tubal sterilization has lower failure rates, we also discussed the importance of using a progesterone contraceptive to decrease her risk of endometrial cancer with her risk factor of obesity. Patient reports she is planning on keeping her Mirena IUD and would also like a tubal ligation. We discussed at length along with Dr. Pina the increased risks of surgery with morbid obesity including but not limited to: difficult entry, poor ventilation, intolerance of Trendelenburg position and inability to complete the procedure safely. The patient reports she is willing to take these risks to ease her mind . The patient has previously been counseled by to OB Gyne and at peripheral centers regarding her increased risk of surgery and she continues to be sure that she wants the procedure. Allergies Allergies Allergen Reactions Claritin [Loratadine] Methylprednisolone Hives Oxycodone Metformin Diarrhea ObGyn Hx OB History Para Term AB Living 1 1 1 0 0 1 SAB IAB Ectopic Multiple Live Births 0 0 0 0 1 # Outcome Date GA Lbr Alec/2nd Weight Sex Type Anes PTL Lv 1 Term 05/08/05 3.175 kg F Vag-Spont EPI N Medical Hx Past Medical History: Diagnosis Date Allergic Arthritis Asthma Back pain Chronic kidney failure Depression Diabetes mellitus (CMS-HCC) Eczema Failure to thrive (child) GERD (gastroesophageal reflux disease) HTN (hypertension) Hypothyroid Migraine Panic attack Visual impairment Surgical Hx Past Surgical History: Procedure Laterality Date CHOLECYSTECTOMY IMPLANTATION VAGAL NERVE STIMULATOR 2020 Family Hx Family History Problem Relation Age of Onset Heart disease Father Emphysema Father Asthma Father Hypertension Father No Known Problems Mother Diabetes Maternal Aunt Breast cancer Neg Hx Colon cancer Neg Hx Ovarian cancer Neg Hx Uterine cancer Neg Hx Psychosocial Social History Socioeconomic History Marital status: Tobacco Use Smoking status: Never Smokeless tobacco: Never Vaping Use Vaping status: Never Used Substance and Sexual Activity Alcohol use: No Drug use: No Sexual activity: Not Currently Partners: Male control/protection: I.U.D. Other Topics Concern Caffeine Use No Social Determinants of Health Food Insecurity: No Food Insecurity (03/06/2024) Hunger Screening Food Insecurity - Worry: Never True Food Insecurity - Inability: Never True Current Medications Current Outpatient Medications Medication Sig Dispense Refill [...] No current facility-administered medications for this visit. Allergies Allergies Allergen Reactions Claritin [Loratadine] Methylprednisolone Hives Oxycodone Metformin Diarrhea OBJECTIVE Vitals Vitals: 03/06/24 1415 BP: 106/82 Weight: 121.6 kg (268 lb) Height: 149.9 cm (4' 11.02 ) Physical Exam Constitutional: Appearance: She is obese. Pulmonary: Effort: Pulmonary effort is normal. Abdominal: Palpations: Abdomen is soft. Comments: Scars are noted at the umbilicus and right upper quadrant from her previous cholecystectomy. Neurological: Mental Status: She is alert. Psychiatric: Mood and Affect: Mood normal. Behavior: Behavior normal. ASSESSMENT & PLAN Nadir Hendrickson is a 38 y.o. who presents to discuss sterilization. Multiple methods of permanent sterilization were discussed with the patient including laparoscopic tubal ligation and laparoscopic salpingectomy. Each procedure itself, the risks, benefits, and side effects were discussed. The fact that these are permanent procedures and non reversible was also discussed along with the use of LARCs for an alternative method with equal or better effectiveness rate of 2 per 1,000 pregnancies. 1. Tubal ligation/Bilateral Salpingectomy Procedure Discussed This is a laparoscopic procedure, which means two to three small incision will be made in the abdomen. Then heat to seal the tubes shut, or the use of rings or clips to close the fallopian tubes will be used to ligate the tubes. Another option is bilateral salpingectomy, in which both tubes are removed entirely. The most compelling theory of epithelial ovarian carcinogenesis suggests that serous, endometrioid, and clear cell carcinomas are derived from the fallopian tube and the endometrium and not directly from the ovary, so by removing the tube this may decrease your risk of ovarian cancer. There is also no increased risk to performing salpingectomy instead of tubal ligation. -Effectiveness findings of the CREST study show that the 10-year cumulative rate for all types of occlusion methods was 1.85%. -Adverse Effects/Side Effects Discussed included: Risks of the procedure include bleeding, infection, damage to bowel bladder or blood vessels, failure of procedure, ectopic , and regret, risks of anesthesia. Possible discomfort at incision sites and need for open procedure. After surgery, you will be observed for a short time to be sure that there are no problems. Most women can go home 2-4 hours after the procedure. You will need someone to take you home. You may feel some discomfort or have other symptoms that last a few days: Common post op feelings discussed were dizziness, Nausea, Shoulder pain, Abdominal cramps, Gassy or bloated feeling, Sore throat (from the breathing tube if general anesthesia was used) Benefits discussed Effective immediately Can resume normal activity in 1-2 days Regret was discussed with an overall rate of 6% in the crest study, and almost 2-3 X greater in patients younger than 30 years old. Patient voiced understanding. Patient after discussion has decided to proceed with laparoscopic salpingectomy and keeping her Mirena IUD in place. Patient Name: Nadir Hendrickson : [id number] Age: 38 y.o. Patient Contact Number: [phone] Diagnosis: Desire for sterilization Procedure:Laparoscopic salpingectomy ASA level: III Physician: Dr. Pina Outpatient Pre op appt? Yes Medical Clearance? Yes Specialty? PCP Mikayla Barclay MD Patient scheduled for May 14. die turner in the room to discuss instructions with the patient. Medicaid and surgical consents obtained at bedside with witness. Type 2 diabetes: Last HB A1c at 5.4 per patient, will obtain medical clearance from primary care physician prior to surgery. Patient counseled along with Dr. Pina. Mikayla Barclay MD ObGyn Resident PGY4 Pt is here for a tubal consult Pt has no other concerns at this time Attending Attestation: I saw the patient. I participated and was physically present during the critical/patterson portions of the service. I was directly involved in the management and treatment plan of the patient. I reviewed the resident's note. Additional Notes/Findings: Patient here for tubal consult. She desires permanent sterilization. She is aware that due to her obesity she is at high risk for surgical complications/possible failed procedure. We discussed that her IUD provides good control and endometrial protection, she could just choose to keep the IUD in place and not proceed with surgery. She is adamant that she would like to proceed with surgery. Informed consent has been obtained. She will need preop clearance prior to surgery. Beatrice Pina DO documented in this encounter [facility] 02-21-2024 History of Presen t illness Narrative Subjective Patient ID: Nadir Hendrickson is a 38 y.o. female who presents today to discuss elective tubal ligation. Patient has Mirena IUD in place for control. She does not have a menses with the Mirena in place. She has had 1 and 1 live . She states she does not want anymore children. Patient has previously had a cholecystectomy and a vagal nerve stimulator placement. Patient is medical history is complicated by type 2 diabetes mellitus, hypertension, hypothyroidism, asthma, poor wound healing, chronic kidney failure, anxiety depression, GERD, and morbid obesity. She does see lizbeth Carreon NP for management of the above. Chief Complaint: Desires tubal ligation for sterilization Menstrual History: OB History 1 Para 1 Term 1 0 AB 0 Living 1 SAB 0 IAB 0 Ectopic 0 Multiple 0 Live Births 1 No LMP recorded. (Menstrual status: IUD). The following portions of the patient's history were reviewed and updated as appropriate: allergies, current medications, past family history, past medical history, past social history, past surgical history, problem list, and medication reconciliation was completed including current medication and post discharge medication. 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: Mirena IUD in place desires sterilization Psych: Anxiety depression on medications Neuro: Psychogenic seizure disorder migraine headache Musculoskeletal: Chronic back pain Skin: Poor wound healing with wound on right foot Objective BP 124/68 Ht 149.9 cm (4' 11 ) Wt 125 kg (275 lb 9.6 oz) BMI 55.66 kg/m General: alert, appears stated age, cooperative, and morbidly obese Heart: regular rate and rhythm, S1, S2 normal, no murmur, click, rub or gallop Lungs: clear to auscultation bilaterally Abdomen: soft, non-tender, without masses or organomegaly and protuberant with pannus to mid thigh while sitting Assessment 1. Preoperative exam for gynecologic surgery 2. Obesity, morbid, BMI 50 or higher (CMS-HCC) 3. Type 2 diabetes mellitus with diabetic polyneuropathy, without long-term current use of insulin ([facility]) 4. Chronic ulcer of right midfoot limited to breakdown of skin [place] 5. Psychogenic nonepileptic seizure 6. Moderate recurrent major depression ([facility] 7. Shortness of breath 8. Learning disability 9. Primary hypertension 10. Asthma, unspecified asthma severity, unspecified whether complicated, unspecified whether persistent 11. Request for sterilization Plan 1. We did discuss with patient that due to her BMI being 55.66 kilogram/m2 she would not qualify to have an elective procedure performed here as anesthesia does have a parameter of less than 50. She does also have multiple medical comorbidities which does make her a poor candidate for elective surgery which was also discuss with patient today. We did reviewed and explained laparoscopic tubal ligation risks and benefits . We discussed possible need for open surgical procedure. We did signed [place] Medicaid required consents today. 2. We advised a preoperative surgical clearance from an internal medicine physician due to patient's multiple medical comorbidities 3. Referral to [facility] placed secondary to the above 40 minutes was spent in the room discussing surgical procedures patient's medical health and risk of the elective surgery with patient as well as reviewing her chart placing consults and completing the charting documented in this encounter [facility] 02-06-2024 History of Presen t illness Narrative Annual Well Woman Visit 02/06/2024 Subjective Nadir Hendrickson is a 38 y.o. 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 Periods are rare due to IUD. No pelvic pain. Patient declined STD testing today. Complaints today: patient would like to discuss getting a tubal Relationship status: The patient reports that there is not domestic violence in her life. Sexually active: No Sexual concerns: n/a Non-smoker Children YES How many One vaginal delivery Current contraception: IUD- Lyletta inserted 06/22/2019 History of abnormal Pap smear: no Last pap: 06/10/2020- Neg, Neg HPV Regular self breast exam: yes Last mammogram: N/A Family history of breast cancer: no Family history of uterine or ovarian cancer: no Family history of pancreatic or prostate cancer: no Family history of colon cancer: no HPV vaccinated: no PHQ9 depression screenin with negative self harm component OB History 1 Para 1 Term 1 0 AB 0 Living 1 SAB 0 IAB 0 Ectopic 0 Multiple 0 Live Births 1 The following portions of the patient's history were reviewed and updated as appropriate: allergies, current medications, past family history, past medical history, past social history, past surgical history and problem list. MEDICAL HX Past Medical History: Diagnosis Date Allergic Arthritis Asthma Back pain Chronic kidney failure Depression Diabetes mellitus (CMS-HCC) Eczema Failure to thrive (child) GERD (gastroesophageal reflux disease) HTN (hypertension) Hypothyroid Migraine Panic attack Visual impairment SURGICAL HX Past Surgical History: Procedure Laterality Date CHOLECYSTECTOMY IMPLANTATION VAGAL NERVE STIMULATOR 2020 FAMILY HX Family History Problem Relation Age of Onset Heart disease Father Emphysema Father Asthma Father Hypertension Father No Known Problems Mother Diabetes Maternal Aunt Breast cancer Neg Hx Colon cancer Neg Hx Ovarian cancer Neg Hx Uterine cancer Neg Hx MEDS Current Outpatient Medications Medication Sig Dispense Refill [...] No current facility-administered medications for this visit. ALLERGIES Allergies Allergen Reactions Claritin [Loratadine] Methylprednisolone Hives Oxycodone Review of Systems Constitutional: Negative. Respiratory: Negative. Negative for chest tightness and shortness of breath. Cardiovascular: Negative. Negative for chest pain and palpitations. Gastrointestinal: Negative. Negative for constipation, diarrhea, nausea and vomiting. Endocrine: Negative. Genitourinary: Negative. Negative for menstrual problem and pelvic pain. Musculoskeletal: Negative. Skin: Negative. Allergic/Immunologic: Negative. Neurological: Positive for headaches. Hematological: Negative. Psychiatric/Behavioral: Negative. Objective BP 132/84 Ht 149.9 cm (4' 11 ) Wt 123.2 kg (271 lb 9.6 oz) BMI 54.86 kg/m Physical Exam Vitals and nursing note reviewed. Constitutional: Appearance: Normal appearance. HENT: Head: Normocephalic and atraumatic. Cardiovascular: Rate and Rhythm: Normal rate and regular rhythm. Pulses: Normal pulses. Heart sounds: Normal heart sounds. Pulmonary: Effort: Pulmonary effort is normal. Breath sounds: Normal breath sounds. Chest: Breasts: Breasts are symmetrical. Right: Normal. No mass, skin change or tenderness. Left: Normal. No mass, skin change or tenderness. Abdominal: General: Bowel sounds are normal. Palpations: Abdomen is soft. Genitourinary: General: Normal vulva. Labia: Right: No rash or lesion. Left: No rash or lesion. Vagina: Normal. Cervix: Normal. Uterus: Not enlarged and not tender. Adnexa: Right adnexa normal and left adnexa normal. Right: No mass, tenderness or fullness. Left: No mass, tenderness or fullness. Comments: IUD strings noted at cervical os. Bimanual exam limited by body habitus. Musculoskeletal: General: Normal range of motion. Cervical back: Normal range of motion and neck supple. Skin: General: Skin is warm and dry. Neurological: Mental Status: She is alert and oriented to person, place, and time. Psychiatric: Mood and Affect: Mood normal. Behavior: Behavior normal. Thought Content: Thought content normal. Judgment: Judgment normal. Assessment/Plan: Nadir was seen today for annual exam. Diagnoses and all orders for this visit: Well woman exam with routine gynecological exam Standardized adult depression screening tool completed Request for sterilization BMI is above average; Discussed eating tips for weight loss and and exercise steps. Breast self exam technique reviewed and patient encouraged to perform self-exam monthly. Discussed healthy lifestyle modifications. Educational material distributed. 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 Medicaid tubal consent signed today. RTO with a physician for consult. Next pap due 2024 per ASCCP guidelines. Discussed taking a multivitamin. Discussed Calcium and Vitamin D for prevention of osteoporosis. Discussed recommendations for HPV vaccine between 9-45 yo. Can be received at [facility] or the [facility] department. Discussed need for yearly mammogram after 40 yo. Discussed colon cancer screening recommendations to begin at 45 yo, patient to discuss with PCP. All questions answered. EFE CORONEL APRN-CNP Lisa M Franco, APRN-CNP 02/06/24 0902 documented in this encounter [facility] [employer] [facility] 12-12-2023 History of Presen t illness Narrative Images from the original note were not included. [address] [place] [address] Patient: Nadir Hendrickson Date of : 1985 [...] PM 03/22/2022 8:25 PM 04/11/2023 9:00 AM [place] Sleepiness Scale Sitting and Reading 2 0 [...] Alcohol Use No documented in this encounter [facility] 12-12-2023 Instructions Katherine Doss MD - 12/12/2023 12:15 PM EDT 1. Dentist to fit for oral mandibular advancement device (OMAD) 2. Continue to work on weight loss 3. Discussion about inspire, not a candidate at this time 4. Follow up in 6 months documented in this encounter [facility] Evaluation note Diagnosis Dystrophic nail- Primary Other specified disease of nail Onychocryptosis Ingrowing nail Pain around toenail, right foot Pain around toenail, left foot documented in this encounter [facility]* Diagnosis Capsulitis of right foot- Primary Sprain of ligament of tarsometatarsal joint of right foot, sequela Pain in joint of right foot Difficulty walking Difficulty in walking documented in this encounter [facility] Healthcare[facility]* Diagnosis MUKESH (obstructive sleep apnea)- Primary Obstructive sleep apnea (adult) (pediatric) [facility] Diagnosis Paresthesia Disturbance of skin sensation documented in this encounter [facility] HealthcareEvaluation [facility]* Diagnosis Paresthesia- Primary Disturbance of skin sensation documented in this encounter [facility]* Diagnosis Moderate persistent asthma, unspecified whether complicated [facility] Diagnosis MUKESH (obstructive sleep apnea) Obstructive sleep apnea (adult) (pediatric) [facility] Diagnosis Well woman exam with routine gynecological exam- Primary Routine gynecological examination Standardized adult depression screening tool completed Request for sterilization [facility]* Diagnosis Moderate persistent asthma, unspecified whether complicated documented [facility] this [facility]* Diagnosis Request for sterilization- Primary Obesity, morbid, BMI 50 or higher ([facility] Type 2 diabetes mellitus with diabetic polyneuropathy, without long-term current use of insulin ([facility]) Chronic ulcer of right midfoot limited to breakdown of skin ([facility]) Psychogenic nonepileptic seizure Moderate recurrent major depression ([facility]) Major depressive disorder, recurrent episode, moderate Shortness of breath Learning disability Other specific developmental learning difficulties Primary hypertension Unspecified essential hypertension Asthma, unspecified asthma severity, unspecified whether complicated, unspecified whether persistent Pre-op exam documented in this encounter [facility]* Diagnosis Preoperative exam for gynecologic surgery- Primary Obesity, morbid, BMI 50 or higher ([facility]) Type 2 diabetes mellitus with diabetic polyneuropathy, without long-term current use of insulin ([facility]) Chronic ulcer of right midfoot limited to breakdown of skin ([facility]) Psychogenic nonepileptic seizure Moderate recurrent major depression ([facility]) Major depressive disorder, recurrent episode, moderate Shortness of breath Learning disability Other specific developmental learning difficulties Primary hypertension Unspecified essential hypertension Asthma, unspecified asthma severity, unspecified whether complicated, unspecified whether persistent Request for sterilization documented in this encounter [facility]* Diagnosis MUKESH (obstructive sleep apnea)- Primary Obstructive sleep apnea (adult) (pediatric) documented in this encounter [facility] SystemInstructionsNot on filedocumented in this encounter [facility] [employer] SystemInstructionsNot on filedocumented in this encounter [facility] SystemInst[facility]* Attachments The following attachments cannot be sent through Care Everywhere. * Fallopian Tube Removal (Austrian) * Health Risks of a High BMI (Austrian) [facility] [employer] [facility] SystemInstructionsNot on file documented in [facility] [employer] SystemInstructionsNot on file documented in this [facility] [employer] SystemInstructionsNot on file documented in [facility] SystemInstructionsNot on file documented in [facility] [employer] [facility] SystemInstructionsNot on file [facility] SystemReason for referral (narrative)* Consultation (Routine) - Pending Review Specialty Diagnoses / Procedures Referred By Lawrence domínguez Referred To Contact Obstetrics and Gynecology Diagnoses Obesity, morbid, BMI 50 or higher ([facility]) Type 2 diabetes mellitus with diabetic polyneuropathy, without long-term current use of insulin ([facility]) Chronic ulcer of right midfoot limited to breakdown of skin ([facility]) Psychogenic nonepileptic seizure Moderate recurrent major depression ([facility]) Shortness of breath Learning disability Primary hypertension Asthma, unspecified asthma severity, unspecified whether complicated, unspecified whether persistent Request for sterilization Dwayne Senior DO [address] [place] [address] [facility] [address] [place] [address] Referral ID Status Reason Start Date Expiration Date Visits Requested Visits Authorized [id number] Pending Review Specialty Services Required 02/21/2024 02/20/2025 1 1 [facility] Narrative* Misc (Routine) - Closed Specialty Diagnoses / Procedures Referred By Lawrence domínguez Referred To Contact Diagnoses MUKESH (obstructive sleep apnea) Procedures Home sleep study Katherine Doss MD [address] [facility] [address] [place] [address] Phone: tel: fax: Referral ID Status Reason Start Date Expiration Date Visits Re quested Visits Authorized [id number] Closed 08/15/2024 08/15/2025 1 1 [employer] Discharge Instructions * Instructions* Suze Rodrigues RN [...] please feel free to call us at [phone]. Follow-up should be scheduled for 1 week. -Regular Diet. -Resume all home medications. -Do not operative heavy machinery if you are taking Percocet (oxycodone), Vanderbilt/Vicodin (hydrocodone), Tylenol #3 (codeine), or Ultram (tramadol). [...] Documents on File Type Date Recorded Patient Systems Designer Expl anation Advance Directives and Living Will Power of Card Lacer Jacquard Documents on File Type Date Recorded Patient Systems Designer Expl anation Advance Directives and Living Will Power of Card Lacer Jacquard Documents on File Type Date Recorded Patient Systems Designer Expl anation ACP-Advance Directive ACP-Power of Card Lacer Jacquard Summary Purpose Family History No Family History [...] incontinence in female DX URINARY INCONTINENCE Procedures IL COMPLEX CYSTOMETROGRAM VOIDING PRESSURE STUDIES URODNYAMICS Kolby Ellis MD [facility] [address] [place] [address] [facility] [employer] Status Reason Specialty Diagnoses / Procedures Re ferred By Contact Referred To Contact Diagnoses Urinary incontinence DX URINARY INCONTINENCE Procedures IL INC IMPLTJ NEUROSTIMULATOR ELTRD SACRAL NERVE INTERSTIM STAGE ONE - Kolby Foote MD [address] [facility] [address] [place] [address] [employer] Reason Comments DM Foot Care Presents for nail. T hinks she may have twisted right ankle, happened maybe in May or March, still hurts. Did not seek any medical txt at the time. States it sometimes swells, no xrays. PCP: Lizbeth ORTEGA 05/03/24, A1C: 2.5, BS: n/a, SS: 7.5EE Reason Comments Foot Pain Established pt prese nts today for x-rays for right ankle pain. Reason Comments Follow-up ENT: did not follow up withOMAD: having issues- seeing dentist for adjustments Sleep Apnea DME:Arshad Reason Comments Polyneuropathy Reason Comments Med Refill Reason Comments Annual Exam Reason Comments tubal consult Specialty Diagnoses / Procedures Referred By Contac t Referred To Contact Obstetrics and Gynecology Diagnoses Obesity, morbid, BMI 50 or higher ([facility] Type 2 diabetes mellitus with diabetic polyneuropathy, without long-term current use of insulin ([facility]) Chronic ulcer of right midfoot limited to breakdown of skin ([facility]) Psychogenic nonepileptic seizure Moderate recurrent major depression ([facility]) Shortness of breath Learning disability Primary hypertension Asthma, unspecified asthma severity, unspecified whether complicated, unspecified whether persistent Request for sterilization Dwayne Senior DO [address] [place] [address] [facility] [address] [place] [address] Referral ID Status Reason Start Date Expiration Date Visits Requested Visits Authorized [id number] Pending Review Specialty Services Required 02/21/2024 02/20/2025 1 1 Reason Comments Tubal Consult Reason Comments Follow-up Sleep Apnea DME: MSCNot using PA P machineSampled Wisp Fit Pack at last visit Reason Onset Date Comments Sleep Lab 08/14/2024 PSG Order Reason Onset Date Comments Sleep Lab 08/15/2024 HST INFORMATION SOURCE (unrecogn ized section and content) DATE CREATED AUTHOR 07/07/2020 Yimi Griffiths [facility] DATE CREATED AUTHOR AUTHOR'S ORGANIZ ATION 08/13/2020 [facility] DATE CREATED AUTHOR AUTHOR'S ORGANIZ ATION 12/22/2020 [facility] DATE CREATED AUTHOR AUTHOR'S ORGANIZ ATION 01/06/2021 [facility] DATE CREATED AUTHOR AUTHOR'S ORGANIZ ATION 09/11/2021 [facility] DATE CREATED AUTHOR AUTHOR'S ORGANIZ ATION 02/16/2023 [facility] DATE CREATED AUTHOR AUTHOR'S ORGANIZ ATION 03/07/2024 [facility] DATE CREATED AUTHOR AUTHOR'S ORGANIZ ATION 08/15/2024 [facility] DATE CREATED AUTHOR AUTHOR'S ORGANIZ ATION 09/12/2024 [facility] EPIC DATE CREATED AUTHOR AUTHOR'S ORGANIZ ATION 11/10/2024 [facility] Ordered Prescriptions (unrec ognized section and content) [...] Care Teams (unrecognized sec tion and content) Roller Hand Relationship Specialty Start Date End Date Lizbeth Snyder NP [address] [place] [address] PCP - General Family Medicine 03/14/24 Ingrid Culver MD [address] [place] [address] Referring Physician Family Medicine 08/17/23 Roller Hand Relationship Specialty Start Date End Date Lizbeth Snyder NP [address] [place] [address] PCP - General Family Medicine 03/14/24 Ingrid Culver MD [address] [place] [address] Referring Physician Family Medicine 08/17/23 Roller Hand Relationship Specialty Start Date End Date Lizbeth Snyder NP [address] [place], [place] [id number] PCP - General Family Medicine 03/14/24 Ingrid Culver MD [address] [place] [address] Referring Physician Family Medicine 08/17/23 Roller Hand Relationship Specialty Start Date End Date Lizbeth Snyder NP [address] [place] [address] PCP - General Family Medicine 03/14/24 Ingrid Culver MD [address] [place] [address] Referring Physician Family Medicine 08/17/23 Roller Hand Relationship Specialty Start Date End Date Lizbeth Snyder NP [address] [place], [place] [id number] PCP - General Family Medicine 03/14/24 Ingrid Culver MD [address] [place] [address] Referring Physician Family Medicine 08/17/23 Roller Hand Relationship Specialty Start Date End Date Lizbeth Snyder APRN-GEOMETRY PROFESSOR [address] [place] [address] PCP - General 12/10/23 Roller Hand Relationship Specialty Start Date End Date Lizbeth Snyder NP [address] [place] [address] PCP - General Family Medicine 03/14/24 Ingrid Culver MD [address] [place] [address] Referring Physician Family Medicine 08/17/23 Laurent Ragland MD [address] [place] [address] Referring Physician Neurology 09/10/24 Yamile Lofton PA [address] [place] [address] Physician Feather Edger Neurology 09/10/24 Roller Hand Relationship Specialty Start Date End Date Lizbeth Snyder NP [address] [place] [address] PCP - General Family Medicine 03/14/24 Ingrid Culver MD [address] [place] [address] Referring Physician Family Medicine 08/17/23 Laurent Ragland MD [address] [place] [address] Referring Physician Neurology 09/10/24 Yamile Lofton PA [address] [place] [address] Physician Feather Edger Neurology 09/10/24 Roller Hand Relationship Specialty [place] [address] [place] [address] PCP - General Family Medicine 03/14/24 Ingrid Culver MD [address] [facility] [place] [address] Referring Physician Family Medicine 08/17/23 Laurent Ragland MD [address] [place] [address] Referring Physician Neurology 09/10/24 Yamile Lofton PA [address] [facility] [address] [place] [address] Physician Feather Edger Neurology 09/10/24 Roller Hand Relationship Specialty Start Date End Date Lizbeth Snyder APRN-GEOMETRY PROFESSOR [address] [facility] PCP - General 12/10/23 Roller Hand Relationship Specialty Start Date End Date Lizbeth Snyder APRN-GEOMETRY PROFESSOR [address] [facility] PCP - General 12/10/23 Roller Hand Relationship Specialty Start Date End Date Lizbeth Snyder APRN-GEOMETRY PROFESSOR [address] [facility]11 PCP - General 12/10/23 Roller Hand Relationship Specialty Start Date End Date Ingrid Culver APRN-PRODUCTION PLANNING MANAGER [address] [facility] [place] [id number] PCP - General Family Medicine 10/22/19 Roller Hand Relationship Specialty Start Date End Date Lizbeth Snyder APRN-GEOMETRY PROFESSOR [address] [place] [place] [address] PCP - General 12/10/23 Roller Hand Relationship Specialty Start Date End Date Lizbeth SnyderDANDRE-GEOMETRY PROFESSOR [address] [place] [address] PCP General 12/10/23 Roller Hand Relationship Specialty Start Date End Date JordonmacyLizbeth chávezDANDRE-GEOMETRY PROFESSOR [address] [place] [address] PCP General 12/10/23 Roller Hand Relationship Specialty Start Date End Date Lizbeth SnyderDANDRE-GEOMETRY PROFESSOR [address] [place] [address] [facility] 12/10/23 Roller Hand Relationship Specialty Start Date End Date Lizbeth SnyderDANDRE-GEOMETRY PROFESSOR [address] [place] [address] [facility] 12/10/23 FOR RECORDS PERTAINING TO PATIENTS WHO [...] BE BASED ON THE PRIMARY CLINICAL RECORDS. [facility] [employer] [facility]. provides no warranty or guarantee of the accuracy or completeness of information in this document.
[2024-11-30 19:45] VITALS: BP 134/49; PULSE 85; TEMP 37.2; O2SAT 97; BMI 54.3
--- NOTE | 2024-11-30 20:38 | ED_ITS ---
HPI HPI - Extremity Injury (Upper) General Chief Complaint: Extremity Injury, Upper Stated Complaint: LEFT SHOULDER PAIN Time Seen by Provider: 11/30/24 20:01 Source: patient Mode of arrival: walk-in Limitations: no limitations History of Present Illness HPI narrative: The patient is coming today after she was walking her dog yesterday and the dog twisted her arm backward, she mentioned that she started having pain in her left shoulder and left elbow since then, this happened yesterday and the patient did not take anything today for pain yet No other concerns Related Data Home Medications ?Medication ?Instructions ?Recorded ?Confirmed aripiprazole 10 mg tablet 10 mg PO .qhs 11/30/24 11/30/24 atorvastatin 20 mg tablet 20 mg PO .qhs 11/30/24 11/30/24 buspirone 15 mg tablet 15 mg PO QDAY 11/30/24 11/30/24 Previous Rx's ?Medication ?Instructions ?Recorded diclofenac sodium 75 mg 75 mg PO BID PRN pain #20 tabs 11/30/24 tablet,delayed release Allergies Allergy/AdvReac Type Severity Reaction Status Date / Time metformin AdvReac Mild Diarrhea Uncoded 11/30/24 19:43 Opioid HPI Opioid Management Most Recent Pain and Opioid Data: Last Pain Scale 8 11/30/24 20:53 11/30/24 Last ED Pain Assessment 11/30/24 20:24 Review of Systems ROS Status of ROS 10 or more systems reviewed and unremark able except as noted in history and below [facility] Social History Smoking status: Never smoker Little interest or pleasure in doing things: not at all Feeling down, depressed, or hopeless: not at all Exam Narrative Exam Narrative: Nurses notes and vital signs reviewed and patient is not hypoxic. Left upper extremity: left upper extremity examination showed that the patient have tenderness upon palpation of the left shoulder as well as the left elbow posteriorly. The patient have full range of movement and passive movement of the left shoulder as well as left elbow. But there is limitation of abduction with active movement General: Well-appearing and in no apparent distress. Skin: Warm, dry, no pallor noted. No rash. Head: Normocephalic, atraumatic. Neck: Supple, non-tender. Cardiovascular: Regular Rate and Rhythm without murmur, gallop or rub. Respiratory: No accessory muscle use or respiratory distress. Lungs are clear to auscultation, no wheezing, rales or rhonchi Chest Wall: no tenderness Back: No midline thoracic or lumbar vertebral tenderness. No CVA tenderness Constitutional Vital Signs, click to edit/add: Last Vital Signs Temp 99 F 11/30/24 19:45 Pulse 80 11/30/24 22:56 Resp 16 11/30/24 22:56 BP 92/72 11/30/24 22:56 Pulse Ox 96 11/30/24 22:56 O2 Del Method Room Air 11/30/24 22:56 Course Vital Signs Vital signs: Vital Signs Temperature 99 F 11/30/24 19:45 Pulse Rate 85 11/30/24 19:45 Respiratory Rate 14 11/30/24 19:45 Blood Pressure 134/49 11/30/24 19:45 Pulse Oximetry 97 11/30/24 19:45 Oxygen Delivery Method Room Air 11/30/24 19:45 Temperature 99 F 11/30/24 19:45 Pulse Rate 80 11/30/24 22:56 Respiratory Rate 16 11/30/24 22:56 Blood Pressure 92/72 11/30/24 22:56 Pulse Oximetry 96 11/30/24 22:56 Oxygen Delivery Method Room Air 11/30/24 22:56 MDM - Extremity Injury (Upper) MDM Narrative Medical decision making narrative: The patient x-ray of the shoulder as well as x-ray of the elbow showed no acute pathology The patient was provided a sling in addition to Voltaren for pain control She was instructed about the importance of follow-up with orthopedic as outpatient for further evaluation specially that the patient injury might need further imaging like an MRI for the shoulder or repeating x-ray for the elbow The patient is to follow up with primary care physician in next 2-3 days or to return to the emergency department should any of the signs or symptoms worsen or new symptoms develop. The patient agrees with the following Diagnosis and Treatment plan and the patient will be discharged home. Discharge Plan Discharge Chief Complaint: Extremity Injury, Upper Clinical Impression: Elbow sprain, Rotator cuff (capsule) sprain Patient Disposition: Home, Self-Care Time of Disposition Decision: 22:46 Condition: Good Prescriptions / Home Meds: New diclofenac sodium 75 mg tablet,delayed release (DR/EC) 75 mg PO BID PRN (Reason: pain) Qty: 20 0RF No Action aripiprazole 10 mg tablet 10 mg PO .qhs atorvastatin 20 mg tablet 20 mg PO .qhs buspirone 15 mg tablet 15 mg PO QDAY Print Language: Upper Sorbian Instructions: Elbow Sprain (ED), Shoulder Sprain (ED) Referrals: CHANDANA OTT [Primary Care Provider] - 1 week Hoang Lainez MD [Physician] - 1 week Discharge Date/Time: 11/30/24 22:58
[2024-11-30] MEDS: KETOROLAC TROMETHAMINE 60 MG/2 ML VIAL IM (20:53)
[2024-11-30 22:56] VITALS: BP 92/72; PULSE 80; O2SAT 96
== END 2024-11-30 22:58 | disposition home or self-care (01) ==
PROVIDERS: Emergency Provider Emergency Medicine; PCP Nurse Practitioner Family
DX: S43.422A Sprain of left rotator cuff capsule, initial encounter (principal); S53.402A Unspecified sprain of left elbow, initial encounter; X50.1XXA Overexertion from prolonged static or awkward postures, initial encounter
CPT/HCPCS: 73030; 73080; 96372; 99284; J1885

== ENCOUNTER 2024-12-31 13:30 | Outpatient (OUT) | payer OTHER, SELFPAY | END 2024-12-31 13:31 | disposition home or self-care (01) | LOC: MRI 13:30 | PROVIDERS: PCP Nurse Practitioner Family; Visit Provider Physician Assistant Medical | DX: R20.2 Paresthesia of skin (principal) | CPT/HCPCS: 72148 ==

== ENCOUNTER 2025-04-17 13:51 | Outpatient (OUT) | payer OTHER, SELFPAY ==
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
--- OUTSIDE RECORDS SUMMARY | 2018-06-20 20:00 | XMS_ITS | CCD ---
Author Name Ursula Palafox NP y Address [address] [facility] [address] [place] [address] Phone Organization [facility] Phone Care Team Providers Care Manager Human Capital Name Role Phone Palomo KING, Anna Primary Care Provider Unav ailable Unavailable Chronic Care Management Unavaila ble Summary Purpose DataExchange Insurance Providers Payer name Policy type / Coverage type Covered libertarian ID Effective Begin Date Effective End Date SUKI BUTTS [facility] [id number] Unknown Unknown Family history Mother Diagnosis Age [...] Unknown Disability 05/31/[address]: 541393463 Has never s moked or chewed tobacco 05/31/[address]: 580194443 Never drinks alco hol 05/31/2018 Has the patient ever used illegal drugs? Unknown Has never used illegal drugs 05/31/2018 DNR Order/ Advanced Directive Unknown Full Code 05/31/2018 Problems Condition Codes Effective Dates Condition St atus Adjustment disorder with mix ed anxiety and depressed mood ICD-10: F43.23 ICD-9: 309.28 06/13/2018 Active Edema, unspecified ICD-10: R60.9 ICD-9: 782.3 06/13/2018 Active Essential (primary) hypertension ICD-10: I10 ICD-9: 401.9 06/13/2018 Active longterm (current) use of non-steroidal anti-inflammatories (NSAID) ICD-10: Z79.1 ICD-9: V58.64 06/13/2018 Active Post-traumatic stress disord er, unspecified ICD-10: F43.10 ICD-9: 309.81 06/13/2018 Active Type 2 diabetes mellitus wit hout complications ICD-10: E11.9 ICD-9: 250.00 06/13/2018 Active Unspecified asthma, uncomplicated ICD-10 : J45.909 ICD-9: 493.90 06/13/2018 Active Wheezing ICD-10: R06.2 ICD-9: 786.07 06/13/2018 Active Abnormal electrocardiogram [ ECG] [EKG] ICD-10: R94.31 ICD-9: 794.31 05/30/2018 Active Body mass index (BMI) 50-59. 9 , adult ICD-10: Z68.43 ICD-9: V85.43 05/30/2018 Active Chronic kidney disease, unspecified ICD- 10: N18.9 ICD-9: 585.9 05/30/2018 Active Hyperlipidemia, unspecified ICD-10: E78. 5 ICD-9: 272.4 05/30/2018 Active Hypothyroidism, unspecified ICD-10: E03. 9 ICD-9: 244.9 05/31/2018 Active Polyneuropathy, unspecified ICD-10: G62. 9 ICD-9: 356.9 05/30/2018 Active Medications Medication Codes Instructions Start Date Stop Date Status Fill Instructions Singulair 10 mg tablet RxNorm: 584941 1 Tablet(s) PO daily 06/14/20 18 2018 Inactive Ventolin HFA 90 mcg/actuation aerosol inhaler RxNorm: 6311320 2 Puff(s) INH QID 06/14/20 18 2018 Inactive buspirone 7.5 mg tablet RxNorm: 480306 1 Tablet(s) PO BID 06/14/20 18 2017 Inactive Prozac 10 mg capsule RxNorm: 883714 1 Capsule(s) PO daily 06/14/20 18 2017 Inactive Singulair 10 mg tablet RxNorm: 435095 1 Tablet(s) PO daily 06/14/20 18 2017 Inactive diclofenac sodium 75 mg tablet,delayed release RxNorm: 083099 1 Tablet(s) PO BID 05/31/20 18 2017 Inactive lisinopril 2.5 mg tablet RxNorm: 806304 1 Tablet(s) PO daily 05/31/20 18 2017 Inactive Neilmed Pediatric Sinus Rinse Refill packet RxNorm: 1 Unit Dose NASAL PRN 05/31/20 18 2021 Inactive metoprolol succinate ER 50 mg tablet,extended release 24 hr RxNorm: 404597 1 Tablet(s) PO daily 05/31/20 18 2017 Inactive levothyroxine 50 mcg tablet RxNorm: 138875 1 Tablet(s) PO daily 05/31/20 18 2017 Inactive TRUEplus Lancets 30 gauge RxNorm: 1 Lancets Miscellaneous QAM 05/31/20 18 2017 Inactive 100/box Aleve 220 mg capsule RxNorm: 9678240 1 Capsule(s) PO BID 05/31/20 18 2018 Inactive ranitidine 150 mg tablet RxNorm: 264175 1 Tablet(s) PO BID 05/31/20 18 2017 Inactive gabapentin 300 mg capsule RxNorm: 394499 1 Capsule(s) PO TID as needed 05/31/20 18 2017 Inactive atorvastatin 20 mg tablet RxNorm: 739772 1 Tablet(s) PO QHS 05/31/20 18 2017 Inactive True Metrix Glucose Test Strip RxNorm: 1 Test Strips Miscellaneous QAM 05/31/20 18 2017 Inactive 50/container Calcium 600-D3 Plus 600 mg calcium-800 unit-50 mg tablet RxNorm: 1 Tablet(s) PO daily take an additonal tablet for itching. 05/31/20 18 2017 Inactive hydrochlorothiazide 12.5 mg tablet RxNorm: 124429 1 Tablet(s) PO QAM 05/31/20 18 2017 Inactive Flintstones Complete (iron) 18 mg iron chewable tablet RxNorm: 1 Tablet(s) PO daily 05/31/20 18 2017 Inactive Ventolin HFA 90 mcg/actuation aerosol inhaler RxNorm: 071765 2 Puff(s) INH QID 05/31/20 18 2017 Inactive True Metrix Glucose Meter RxNorm: miscellaneous 08/17/20 19 2018 Inactive loperamide 2 mg tablet RxNorm: 760809 oral 09/29/20 19 2018 Inactive d-mannose oral powder RxNorm: PO 18 2021 Inactive Medication Administered No Medication Administered data Procedures Procedure Codes Date Glucose Blood Test CPT-4: 31110 06/14/2018 Vital Signs Date Vital 06/14/2018 Blood Pressure 1: 121/75 Code: 8480-6 BMI: 59.0 Code: 16970-3 Heart Rate 1: 84 bpm Height: 4'11 Code: 8302-2 Random Blood Sugar: 92/NaN Respiratory Rate: 16 bpm SpO2: 98% Temperature: 37.6 (C) / 99.7 (F) Weight: 292 lbs Code: 44436-9 Reason For Visit Reason For Visit Effective Dates Notes appropriateness for house call services 06/14/20 18 post traumatic stress disorder 06/14/2018 diabetes mellitus 06/14/2018 hypertension 06/14/2018 Encounters Encounter Performer Location Location Address Codes Magdi e HOME VISIT EST PATIENT Diagnosis: Post-traumatic stress disorder, unspecified[ICD10: F43.10] Diagnosis: Adjustment disorder with mixed anxiety and depressed mood[ICD10: F43.23] Diagnosis: Type 2 diabetes mellitus without complications[ICD1 0: E11.9] Diagnosis: Essential (primary) hypertension[ICD10 : I10] Diagnosis: Unspecified asthma, uncomplicated[ICD1 0: J45.909] Diagnosis: Wheezing[ICD10: R06.2] Diagnosis: Edema, unspecified[ICD10: R60.9] Diagnosis: terminal operations manager (current) use of non-steroidal anti-inflammatorie s (NSAID)[ICD10: Z79.1] [facility] [address] [place] [address] CPT-4: 13028 06/14/2018 Plan of Care Planned Activity Notes Codes Status Date Care Plan: Nebulizer Ordered 06/03 Patient Education: Patient Medication Summary Completed 06/14/2018 Patient Education: Diabetes Complete d 06/14/2018 Patient Education: Hypertension Completed 06/14/2018 Patient Education: Obesity Completed 06/14/2018 Referral: Pending Gynecology Referral Information Referral Processed Referral: Pending Pulmonolog y Referral Information Referral Processed Referral: Pending Psychiatry Referral Information Referral Initiated Referral: Pending Respirator y Services Referral Information Referral Initiated Referral: Pending Ophthalmology Referral Information Referral Initiated Referral: [facility] WPtel: [address] [facility] [address] [facility] [address] Printer Operator placed a call out to the patient to notify her that it has been recommended that she be seen by 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 Patient agreed to be seen, does not have a provider of choice and no transportation issues. Printer Operator faxed referral and clinical notes to [facility] in [place], [place] near the patient's home. Patient to [...] seen and prefers a provider in the [place] or [place] area. Printer Operator placed a call out to everyone listed in the area and the only location that was able to accept the patient's insurance was [address] [address] and spoke with Maylin. Maylin asked that the patient's referral, face sheet and visit notes be faxed to . Printer Operator faxed over requested documents. Patient appointment confirmation letter generated and mailed to her home address. Patient to call to schedule an appointment. Processed Referral: [facility] WPtel: [address] [place] [address] Patient notified that it has been advised that she be seen by Neurology. Patient agreed to be seen and prefers to be seen by a provider in the [place], [place] area. Patient denies any concerns with transportation, and prefers to schedule her own appointment. Printer Operator placed a call out to [facility] and spoke with Neeraj Mcfarland: who confirmed that their office is able to accept new patients and the patient's insurance. After confirming the providers fax number, typewriters functional tester faxed over the patient's referral, and most recent clinical notes to F: . Patient to call to schedule her appointment. Appointment confirmation letter mailed to the patient's home address. CCDA completed. Processed Referral: Pending Nephrology Referral Information Referral Processed Referral: Pending Podiatry Referral Information Referral Initiated Referral: Pending Podiatry Referral Information Referral Processed Referral: Pending Podiatry Referral Information Referral Initiated Medical Equipment No Medical Equipment data Advance Directives No Advance Directive data
--- OUTSIDE RECORDS SUMMARY | 2018-06-20 20:00 | XMS_ITS | CCD ---
Author Name Ursula Palafox NP y Address [address] [facility] [address] [place] [address] Phone Organization [facility] Phone Care Team Providers Care Assurance Specialist Name Role Phone Palomo KING, Anna Primary Care Provider Unav ailable Unavailable Chronic Care Management Unavaila ble Summary Purpose DataExchange Insurance Providers Payer name Policy type / Coverage type Covered constitution party ID Effective Begin Date Effective End Date SUKI BUTTS [facility] [id number] Unknown Unknown Family history Mother Diagnosis Age [...] Unknown Disability 05/31/[address]: 208547565 Has never s moked or chewed tobacco 05/31/[address]: 598680203 Never drinks alco hol 05/31/2018 Has the [...] hypertension ICD-10: I10 ICD-9: 401.9 06/13/2018 Active long-term (current) use of non-steroidal anti-inflammatories (NSAID) ICD-10: [...] Fill Instructions Macrobid 100 mg capsule RxNorm: 589147 1 Capsule(s) PO Q12H 06/21/20 18 2017 Inactive Singulair 10 mg tablet RxNorm: 379451 1 Tablet(s) PO daily 06/14/20 18 2018 Inactive Ventolin HFA 90 mcg/actuation aerosol inhaler RxNorm: 6226456 2 Puff(s) INH QID 06/14/20 18 2018 Inactive buspirone 7.5 mg tablet RxNorm: 370513 1 Tablet(s) PO BID 06/14/20 18 2017 Inactive Prozac 10 mg capsule RxNorm: 932201 1 Capsule(s) PO daily 06/14/20 18 2017 Inactive Singulair 10 mg tablet RxNorm: 225192 1 Tablet(s) PO daily 06/14/20 18 2017 Inactive diclofenac sodium 75 mg tablet,delayed release RxNorm: 015925 1 Tablet(s) PO BID 05/31/20 18 2017 Inactive lisinopril 2.5 mg tablet RxNorm: 358738 1 Tablet(s) PO daily 05/31/20 18 2017 Inactive Neilmed Pediatric Sinus Rinse Refill packet RxNorm: 1 Unit Dose NASAL PRN 05/31/20 18 2021 Inactive metoprolol succinate ER 50 mg tablet,extended release 24 hr RxNorm: 779424 1 Tablet(s) PO daily 05/31/20 18 2017 Inactive levothyroxine 50 mcg tablet RxNorm: 502605 1 Tablet(s) PO daily 05/31/20 18 2017 Inactive TRUEplus Lancets 30 gauge RxNorm: 1 Lancets Miscellaneous [facility] 05/31/20 18 2017 Inactive 100/box Aleve 220 mg capsule RxNorm: 0510235 1 Capsule(s) PO BID 05/31/20 18 2018 Inactive ranitidine 150 mg tablet RxNorm: 336448 1 Tablet(s) PO BID 05/31/20 18 2017 Inactive gabapentin 300 mg capsule RxNorm: 565696 1 Capsule(s) PO TID as needed 05/31/20 18 2017 Inactive atorvastatin 20 mg tablet RxNorm: 149132 1 Tablet(s) PO QHS 05/31/20 18 2017 Inactive True Metrix Glucose Test Strip RxNorm: 1 Test Strips Miscellaneous QAM 05/31/20 18 2017 Inactive 50/container Calcium 600-D3 Plus 600 mg calcium-800 unit-50 mg tablet RxNorm: 1 Tablet(s) PO daily take an additonal tablet for itching. 05/31/20 18 2017 Inactive hydrochlorothiazide 12.5 mg tablet RxNorm: 097677 1 Tablet(s) PO QAM 05/31/20 18 2017 Inactive Flintstones Complete (iron) 18 mg iron chewable tablet RxNorm: 1 Tablet(s) PO daily 05/31/20 18 2017 Inactive Ventolin HFA 90 mcg/actuation aerosol inhaler RxNorm: 556372 2 Puff(s) INH QID 05/31/20 18 2017 Inactive True Metrix Glucose Meter RxNorm: miscellaneous 08/17/20 19 2018 Inactive loperamide 2 mg tablet RxNorm: 749783 oral 09/29/20 19 2018 Inactive d-mannose oral powder RxNorm: PO 18 2021 Inactive Medication Administered No Medication Administered data Reason For Visit No Reason For Visit data Plan of Care Planned Activity Notes Codes Status Date Patient Education: Patient Medication Summary Completed 06/21/2018 Referral: Pending Gynecology Referral Information Referral Processed Referral: Pending Pulmonolog y Referral Information Referral Processed Referral: Pending Psychiatry Referral Information Referral Initiated Referral: Pending Respirator y Services Referral Information Referral Initiated Referral: Pending Ophthalmology Referral Information Referral Initiated Referral: [facility] WPtel: [address] [place] [address] Recreation Establishment Manager placed a call out to the patient to notify her that it has been recommended that she be seen by 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 Patient agreed to be seen, does not have a provider of choice and no transportation issues. Recreation Establishment Manager faxed referral and clinical notes to [facility] in [place], [place] near the patient's home. Patient to [...] seen and prefers a provider in the [place] or [place] area. Recreation Establishment Manager placed a call out to everyone listed in the area and the only location that was able to accept the patient's insurance was [facility] [place] [address] and spoke with Maylin. Maylin asked that the patient's referral, face sheet and visit notes be faxed to . Recreation Establishment Manager faxed over requested documents. Patient appointment confirmation letter generated and mailed to her home address. Patient to call to schedule an appointment. [facility] W[facility] [address] [facility] [address] [place], [place] [id number] Patient notified that it has been advised that she be seen by Neurology. Patient agreed to be seen and prefers to be seen by a provider in the [place], [place] area. Patient denies any concerns with transportation, and prefers to schedule her own appointment. Recreation Establishment Manager placed a call out to [facility] and spoke with Neeraj P: who confirmed that their office is able to accept new patients and the patient's insurance. After confirming the providers fax number, financial writer faxed over the patient's referral, and [...]
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
--- OUTSIDE RECORDS SUMMARY | 2018-07-31 20:00 | XMS_ITS | CCD ---
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 Market Consultant Name Role Phone Palomo KING, Anna Primary Care Provider Unav ailable Unavailable Chronic Care Management Unavaila ble Summary Purpose DataExchange Insurance Providers Payer name Policy type / Coverage type Covered republican ID Effective Begin Date Effective End Date SUKI BUTTS [facility] [id number] Unknown Unknown Family history Mother Diagnosis Age [...] Unknown Disability 05/31/[address]: 682383515 Has never s moked or chewed tobacco 05/31/[address]: 702250034 Never drinks alco hol 05/31/2018 Has the [...] Wheezing ICD-10: R06.2 ICD-9: 786.07 07/11/2018 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 of non-steroidal anti-inflammatories (NSAID) ICD-10: [...] Start Date Stop Date Status Fill Instructions gabapentin 300 mg capsule RxNorm: 176978 1 Capsule(s) PO TID as needed 08/01/20 18 2018 Inactive hydrochlorothiazide 12.5 mg tablet RxNorm: 066452 1 Tablet(s) PO QAM 08/01/20 18 2018 Inactive ranitidine 150 mg tablet RxNorm: 358703 1 Tablet(s) PO BID 08/01/20 18 2018 Inactive Macrobid 100 mg capsule RxNorm: 608558 1 Capsule(s) PO Q12H 06/21/20 18 2017 Inactive Singulair 10 mg tablet RxNorm: 192988 1 Tablet(s) PO daily 06/14/20 18 2018 Inactive Ventolin HFA 90 mcg/actuation aerosol inhaler RxNorm: 9498007 2 Puff(s) INH QID 06/14/20 18 2018 Inactive buspirone 7.5 mg tablet RxNorm: 850120 1 Tablet(s) PO BID 06/14/20 18 2017 Inactive Prozac 10 mg capsule RxNorm: 280100 1 Capsule(s) PO daily 06/14/20 18 2017 Inactive Singulair 10 mg tablet RxNorm: 196679 1 Tablet(s) PO daily 06/14/20 18 2017 Inactive Neilmed Pediatric Sinus Rinse Refill packet RxNorm: 1 Unit Dose NASAL PRN 05/31/20 18 2021 Inactive TRUEplus Lancets 30 gauge RxNorm: 1 Lancets Miscellaneous QAM 05/31/20 18 2017 Inactive 100/box Aleve 220 mg capsule RxNorm: 3332803 1 Capsule(s) PO BID 05/31/20 18 2018 Inactive diclofenac sodium 75 mg tablet,delayed release RxNorm: 332518 1 Tablet(s) PO BID 05/31/20 18 2017 Inactive lisinopril 2.5 mg tablet RxNorm: 093321 1 Tablet(s) PO daily 05/31/20 18 2017 Inactive metoprolol succinate ER 50 mg tablet,extended release 24 hr RxNorm: 535179 1 Tablet(s) PO daily 05/31/20 18 2017 Inactive levothyroxine 50 mcg tablet RxNorm: 957700 1 Tablet(s) PO daily 05/31/20 18 2017 Inactive Ventolin HFA 90 mcg/actuation aerosol inhaler RxNorm: 755274 2 Puff(s) INH QID 05/31/20 18 2017 Inactive ranitidine 150 mg tablet RxNorm: 588178 1 Tablet(s) PO BID 05/31/20 18 2017 Inactive gabapentin 300 mg capsule RxNorm: 905169 1 Capsule(s) PO TID as needed 05/31/20 18 2017 Inactive atorvastatin 20 mg tablet RxNorm: 269045 1 Tablet(s) PO QHS 05/31/20 18 2017 Inactive True Metrix Glucose Test Strip RxNorm: 1 Test Strips Miscellaneous QAM 05/31/20 18 2017 Inactive 50/container Calcium 600-D3 Plus 600 mg calcium-800 unit-50 mg tablet RxNorm: 1 Tablet(s) PO daily take an additonal tablet for itching. 05/31/20 18 2017 Inactive hydrochlorothiazide 12.5 mg tablet RxNorm: 641648 1 Tablet(s) PO QAM 05/31/20 18 2017 Inactive César Complete (iron) 18 mg iron chewable tablet RxNorm: 1 Tablet(s) PO daily 05/31/20 18 2017 Inactive True Metrix Glucose Meter RxNorm: miscellaneous 08/17/20 19 2018 Inactive loperamide 2 mg tablet RxNorm: 265305 oral 09/29/20 19 2018 Inactive d-mannose oral powder RxNorm: PO 18 2021 Inactive Medication Administered No Medication Administered data Reason For Visit No Reason For Visit data Plan of Care Planned Activity Notes Codes Status Date Referral: Pending Gynecology Referral Information Referral Processed Referral: Pending Pulmonolog y Referral Information Referral Processed Referral: Pending Psychiatry Referral Information Referral Initiated Referral: Pending Respirator y Services Referral Information Referral Initiated Referral: Pending Ophthalmol ogy Referral Information Referral Initiated Referral: [facility] WPtel: [address] [place] [address] Assistant Press Operator Offset placed a call out to the patient to notify her that it has been recommended that she be seen by 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 Patient agreed to be seen, does not have a provider of choice and no transportation issues. Assistant Press Operator Offset faxed referral and clinical notes to [facility] in [place], [place] near the patient's home. Patient to call the urology office to schedule an appointment, as she will need to coordinate transportation. Patient referral confirmation mailed to her home address. Processed Referral: Pending Cardiology Referral Information Referral Processed Referral: Pending Bariatric Referral Information Referral Initiated Referral: Pending Ophthalmol ogy Referral Information Patient notified that it has been recommended that she be seen by ophthalmology. Patient agreed to be seen and prefers a provider in the [facility]. Assistant Press Operator Offset placed a call out to everyone listed in the area and the only location that was able to accept the patient's insurance was [address] [address] and spoke with Maylin. Maylin asked that the patient's referral, face sheet and visit notes be faxed to . Assistant Press Operator Offset faxed over requested documents. Patient appointment confirmation letter generated and mailed to her home address. Patient to call to schedule an appointment. Processed [facility] WPtel: [address] [facility] [address] [place], [place] [id number] Patient notified that it has been advised that she be seen by Neurology. Patient agreed to be seen and prefers to be seen by a provider in the [place], [place] area. Patient denies any concerns with transportation, and prefers to schedule her own appointment. Assistant Press Operator Offset placed a call out to [facility] and spoke with Neeraj P: who confirmed that their office is able to accept new patients and the patient's insurance. After confirming the providers fax number, instructional writer faxed over the patient's referral, and [...]
--- OUTSIDE RECORDS SUMMARY | 2018-07-31 20:00 | XMS_ITS | CCD ---
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 Public Health Name Role Phone Palomo KING, Anna Primary Care Provider Unav ailable Unavailable Chronic Care Management Unavaila ble Summary Purpose DataExchange Insurance Providers Payer name Policy type / Coverage type Covered republican ID Effective Begin Date Effective End Date SUKI BUTTS [facility] [id number] Unknown Unknown Family history Mother Diagnosis Age [...] Unknown Disability 05/31/[address]: 831347158 Has never s moked or chewed tobacco 05/31/[address]: 590447029 Never drinks alco hol 05/31/2018 Has the [...] Wheezing ICD-10: R06.2 ICD-9: 786.07 07/11/2018 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-steroidal anti-inflammatories (NSAID) ICD-10: [...] Fill Instructions gabapentin 300 mg capsule RxNorm: 470449 1 Capsule(s) PO TID as needed 08/01/20 18 2018 Inactive hydrochlorothiazide 12.5 mg tablet RxNorm: 811691 1 Tablet(s) PO QAM 08/01/20 18 2018 Inactive ranitidine 150 mg tablet RxNorm: 591759 1 Tablet(s) PO BID 08/01/20 18 2018 Inactive Macrobid 100 mg capsule RxNorm: 720022 1 Capsule(s) PO Q12H 06/21/20 18 2017 Inactive Singulair 10 mg tablet RxNorm: 852501 1 Tablet(s) PO daily 06/14/20 18 2018 Inactive Ventolin HFA 90 mcg/actuation aerosol inhaler RxNorm: 0283729 2 Puff(s) INH QID 06/14/20 18 2018 Inactive buspirone 7.5 mg tablet RxNorm: 550445 1 Tablet(s) PO BID 06/14/20 18 2017 Inactive Prozac 10 mg capsule RxNorm: 882850 1 Capsule(s) PO daily 06/14/20 18 2017 Inactive Singulair 10 mg tablet RxNorm: 912128 1 Tablet(s) PO daily 06/14/20 18 2017 Inactive Neilmed Pediatric Sinus Rinse Refill packet RxNorm: 1 Unit Dose NASAL PRN 05/31/20 18 2021 Inactive TRUEplus Lancets 30 gauge RxNorm: 1 Lancets Miscellaneous QAM 05/31/20 18 2017 Inactive 100/box Aleve 220 mg capsule RxNorm: 5660251 1 Capsule(s) PO BID 05/31/20 18 2018 Inactive diclofenac sodium 75 mg tablet,delayed release RxNorm: 992610 1 Tablet(s) PO BID 05/31/20 18 2017 Inactive lisinopril 2.5 mg tablet RxNorm: 461097 1 Tablet(s) PO daily 05/31/20 18 2017 Inactive metoprolol succinate ER 50 mg tablet,extended release 24 hr RxNorm: 118761 1 Tablet(s) PO daily 05/31/20 18 2017 Inactive levothyroxine 50 mcg tablet RxNorm: 927317 1 Tablet(s) PO daily 05/31/20 18 2017 Inactive Ventolin HFA 90 mcg/actuation aerosol inhaler RxNorm: 208676 2 Puff(s) INH QID 05/31/20 18 2017 Inactive ranitidine 150 mg tablet RxNorm: 281492 1 Tablet(s) PO BID 05/31/20 18 2017 Inactive gabapentin 300 mg capsule RxNorm: 336535 1 Capsule(s) PO TID as needed 05/31/20 18 2017 Inactive atorvastatin 20 mg tablet RxNorm: 020805 1 Tablet(s) PO QHS 05/31/20 18 2017 Inactive True Metrix Glucose Test Strip RxNorm: 1 Test Strips Miscellaneous QAM 05/31/20 18 2017 Inactive 50/container Calcium 600-D3 Plus 600 mg calcium-800 unit-50 mg tablet RxNorm: 1 Tablet(s) PO daily take an additonal tablet for itching. 05/31/20 18 2017 Inactive hydrochlorothiazide 12.5 mg tablet RxNorm: 910011 1 Tablet(s) PO QAM 05/31/20 18 2017 Inactive Céasr Complete (iron) 18 mg iron chewable tablet RxNorm: 1 Tablet(s) PO daily 05/31/20 18 2017 Inactive True Metrix Glucose Meter RxNorm: miscellaneous 08/17/20 19 2018 Inactive loperamide 2 mg tablet RxNorm: 498890 oral 09/29/20 19 2018 Inactive d-mannose oral [...] Ophthalmol ogy Referral Information Referral Initiated Referral: [facility] WPtel: [address] [place] [address] Consumer Electronics Merchandiser placed a call out to the patient to notify her that it has been recommended that she be seen by 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 Patient agreed to be seen, does not have a provider of choice and no transportation issues. Consumer Electronics Merchandiser faxed referral and clinical notes to [facility] in [place], [place] near the patient's home. Patient to [...] seen and prefers a provider in the [facility]. Consumer Electronics Merchandiser placed a call out to everyone listed in the area and the only location that was able to accept the patient's insurance was [address] [address] and spoke with Maylin. Maylin asked that the patient's referral, face sheet and visit notes be faxed to . Consumer Electronics Merchandiser faxed over requested documents. Patient appointment confirmation letter generated and mailed to her home address. Patient to call to schedule an appointment. [facility]ed [facility] W[facility] [address] [facility] [address] [place], [place] [address] Patient notified that it has been advised that she be seen by Neurology. Patient agreed to be seen and prefers to be seen by a provider in the [place], [place] area. Patient denies any concerns with transportation, and prefers to schedule her own appointment. Consumer Electronics Merchandiser placed a call out to [facility] and spoke with Neeraj P: who confirmed that their office is able to accept new patients and the patient's insurance. After confirming the providers fax number, writer producer faxed over the patient's referral, and most [...]
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
--- OUTSIDE RECORDS SUMMARY | 2018-08-30 20:00 | XMS_ITS | CCD ---
Author Name Ursula Palafox NP y Address [address] [place] [address] Phone Organization [facility] Phone Care Team Providers Care Pilot Name Role Phone Palomo KING, Anna Primary Care Provider Unav ailable Unavailable Chronic Care Management Unavaila ble Summary Purpose DataExchange Insurance Providers Payer name Policy type / Coverage type Covered alliance party ID Effective Begin Date Effective End Date SUKI BUTTS [facility] [id number] Unknown Unknown Family history Mother Diagnosis Age [...] Unknown Disability 05/31/[address]: 468097195 Has never s moked or chewed tobacco 05/31/[address]: 908159724 Never drinks alco hol 05/31/2018 Has the patient ever used illegal drugs? Unknown Has never used illegal drugs 05/31/2018 DNR Order/ Advanced Directive Unknown Full Code 05/31/2018 Problems Condition Codes Effective Dates Condition St atus Acute upper respiratory infe ction, unspecified ICD-10: J06.9 ICD-9: 465.9 08/30/2018 Active Adjustment disorder with mix ed anxiety [...] unspecified ICD-10: R60.9 ICD-9: 782.3 07/11/2018 Active custodial (current) use of non-steroidal anti-inflammatories (NSAID) ICD-10: [...] Start Date Stop Date Status Fill Instructions amoxicillin 500 mg tablet RxNorm: 231205 1 Tablet(s) PO Q12H 08/31/20 18 2017 Inactive albuterol sulfate 2.5 mg/3 mL (0.083 %) solution for nebulization RxNorm: 141903 1 Vial INH QID 08/10/20 18 2018 Inactive 60/box. Please do not fill early. Please do not auto refill. Prozac 10 mg capsule RxNorm: 547417 1 Capsule(s) PO daily 08/09/20 18 2017 Inactive buspirone 7.5 mg tablet RxNorm: 440459 1 Tablet(s) PO BID 08/09/20 18 2018 Inactive gabapentin 300 mg capsule RxNorm: 248991 1 Capsule(s) PO TID as needed 08/01/20 18 2018 Inactive hydrochlorothiazide 12.5 mg tablet RxNorm: 386998 1 Tablet(s) PO QAM 08/01/20 18 2018 Inactive ranitidine 150 mg tablet RxNorm: 168317 1 Tablet(s) PO BID 08/01/20 18 2018 Inactive Macrobid 100 mg capsule RxNorm: 918426 1 Capsule(s) PO Q12H 06/21/20 18 2017 Inactive Singulair 10 mg tablet RxNorm: 703750 1 Tablet(s) PO daily 06/14/20 18 2018 Inactive Ventolin HFA 90 mcg/actuation aerosol inhaler RxNorm: 2673411 2 Puff(s) INH QID 06/14/20 18 2018 Inactive Prozac 10 mg capsule RxNorm: 637543 1 Capsule(s) PO daily 06/14/20 18 2017 Inactive Singulair 10 mg tablet RxNorm: 671961 1 Tablet(s) PO daily 06/14/20 18 2017 Inactive buspirone 7.5 mg tablet RxNorm: 132224 1 Tablet(s) PO BID 06/14/20 18 2017 Inactive Neilmed Pediatric Sinus Rinse Refill packet RxNorm: 1 Unit Dose NASAL PRN 05/31/20 18 2021 Inactive TRUEplus Lancets 30 gauge RxNorm: 1 Lancets Miscellaneous QAM 05/31/20 18 2017 Inactive 100/box Aleve 220 mg capsule RxNorm: 3880227 1 Capsule(s) PO BID 05/31/20 18 2018 Inactive diclofenac sodium 75 mg tablet,delayed release RxNorm: 540652 1 Tablet(s) PO BID 05/31/20 18 2017 Inactive lisinopril 2.5 mg tablet RxNorm: 845119 1 Tablet(s) PO daily 05/31/20 18 2017 Inactive metoprolol succinate ER 50 mg tablet,extended release 24 hr RxNorm: 523530 1 Tablet(s) PO daily 05/31/20 18 2017 Inactive levothyroxine 50 mcg tablet RxNorm: 572532 1 Tablet(s) PO daily 05/31/20 18 2017 Inactive Ventolin HFA 90 mcg/actuation aerosol inhaler RxNorm: 217903 2 Puff(s) INH QID 05/31/20 18 2017 Inactive ranitidine 150 mg tablet RxNorm: 292450 1 Tablet(s) PO BID 05/31/20 18 2017 Inactive gabapentin 300 mg capsule RxNorm: 481623 1 Capsule(s) PO TID as needed 05/31/20 18 2017 Inactive atorvastatin 20 mg tablet RxNorm: 108473 1 Tablet(s) PO QHS 05/31/20 18 2017 Inactive True Metrix Glucose Test Strip RxNorm: 1 Test Strips Miscellaneous QAM 05/31/20 18 2017 Inactive 50/container Calcium 600-D3 Plus 600 mg calcium-800 unit-50 mg tablet RxNorm: 1 Tablet(s) PO daily take an additonal tablet for itching. 05/31/20 18 2017 Inactive hydrochlorothiazide 12.5 mg tablet RxNorm: 808890 1 Tablet(s) PO QAM 05/31/20 18 2017 Inactive Flintstones Complete (iron) 18 mg iron chewable tablet RxNorm: 1 Tablet(s) PO daily 05/31/20 18 2017 Inactive True Metrix Glucose Meter RxNorm: miscellaneous 08/17/20 19 2018 Inactive loperamide 2 mg tablet RxNorm: 326974 oral 09/29/20 19 2018 Inactive d-mannose oral powder RxNorm: PO 18 2021 Inactive Medication Administered No Medication Administered data Reason For Visit No Reason For Visit data Plan of Care Planned Activity Notes Codes Status Date Patient Education: Patient Medication Summary Completed 08/31/2018 Referral: Pending Gynecology Referral Information Referral Processed Referral: Pending Pulmonolog y Referral Information Referral Processed Referral: Pending Psychiatry Referral Information Referral Initiated Referral: Pending Respirator y Services Referral Information Referral Initiated Referral: Pending Ophthalmology Referral Information Referral Initiated Referral: [facility] WPtel: [address] Cordwood Cutter placed a call out to the patient to notify her that it has been recommended that she be seen by 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 Patient agreed to be seen, does not have a provider of choice and no transportation issues. Cordwood Cutter faxed referral and clinical notes to [facility] in [place], [place] near the patient's home. Patient to [...] seen and prefers a provider in the [place] or [place] area. Cordwood Cutter placed a call out to everyone listed in the area and the only location that was able to accept the patient's insurance was [address] [address] and spoke with Maylin. Maylin asked that the patient's referral, face sheet and visit notes be faxed to . Cordwood Cutter faxed over requested documents. Patient appointment confirmation letter generated and mailed to her home address. Patient to call to schedule an appointment. Processed [facility] W[facility]el[facility] [address] [facility] [address] [place], [place] [id number] Patient notified that it has been advised that she be seen by Neurology. Patient agreed to be seen and prefers to be seen by a provider in the [place], [place] area. Patient denies any concerns with transportation, and prefers to schedule her own appointment. Cordwood Cutter [facility] a [facility] and spoke with Neeraj Mcfarland: who confirmed that their office is able to accept new patients and the patient's insurance. After confirming the providers fax number, scenario writer faxed over the patient's referral, and [...]
--- OUTSIDE RECORDS SUMMARY | 2018-09-08 20:00 | XMS_ITS | CCD ---
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 Machine Sprayer Name Role Phone Palomo KING, Anna Primary Care Provider Unav ailable Unavailable Chronic Care Management Unavaila ble Summary Purpose DataExchange Insurance Providers Payer name Policy type / Coverage type Covered constitution party ID Effective Begin Date Effective End Date SUKI MAYO [id number] Unknown Unknown Family history Mother Diagnosis Age [...] Unknown Disability 05/31/[address]: 514513696 Has never s moked or chewed tobacco 05/31/[address]: 404588411 Never drinks alco hol 05/31/2018 Has the patient ever used illegal drugs? Unknown Has never used illegal drugs 05/31/2018 DNR Order/ Advanced Directive Unknown Full Code 05/31/2018 Allergies, Adverse Reactions, Alerts Substance Reaction Codes Entered Date Inactivated Date Status *No known food allergies Unknown 09/06/2018 No I nactive Date Active Methylprednisolone hives RxNorm: 6902 09/06/2018 No Inac tive Date Active Problems Condition Codes Effective Dates Condition St atus Adjustment disorder with mix ed anxiety and depressed mood ICD-10: F43.23 ICD-9: 309.28 09/05/2018 Active Chronic kidney disease, unspecified ICD- 10: N18.9 ICD-9: 585.9 09/05/2018 Active Encounter for screening, unspecified ICD -10: Z13.9 ICD-9: V82.9 09/05/2018 Active Essential (primary) hypertension ICD-10: I10 ICD-9: 401.9 09/05/2018 Active Hypothyroidism, unspecified ICD-10: E03. 9 ICD-9: 244.9 09/05/2018 Active Post-traumatic stress disord er, unspecified ICD-10: F43.10 ICD-9: 309.81 09/05/2018 Active Type 2 diabetes mellitus wit hout complications ICD-10: E11.9 ICD-9: 250.00 09/05/2018 Active Acute upper respiratory infe ction, unspecified ICD-10: J06.9 ICD-9: 465.9 08/30/2018 Active Unspecified asthma, uncomplicated ICD-10 : J45.909 ICD-9: 493.90 08/08/2018 Active Wheezing ICD-10: R06.2 ICD-9: 786.07 08/08/2018 Active Edema, unspecified ICD-10: R60.9 ICD-9: 782.3 07/11/2018 Active superintendent terminal (current) use of non-steroidal anti-inflammatories (NSAID) ICD-10: Z79.1 ICD-9: V58.64 06/13/2018 Active Abnormal electrocardiogram [ ECG] [EKG] ICD-10: R94.31 ICD-9: 794.31 05/30/2018 Active Body mass index (BMI) 50-59. 9 , adult ICD-10: Z68.43 ICD-9: V85.43 05/30/2018 Active Hyperlipidemia, unspecified ICD-10: E78. 5 ICD-9: 272.4 05/30/2018 Active Polyneuropathy, unspecified ICD-10: G62. 9 ICD-9: 356.9 05/30/2018 Active Medications Medication Codes Instructions Start Date Stop Date Status Fill Instructions sertraline 50 mg tablet RxNorm: 533828 1 Tablet(s) PO daily 09/09/20 18 2018 Inactive Please note dose trazodone 50 mg tablet RxNorm: 288191 1 Tablet(s) PO QHS 09/06/20 18 2018 Inactive sertraline 50 mg tablet RxNorm: 803164 1 Tablet(s) PO daily 09/06/20 18 2017 Inactive amoxicillin 500 mg tablet RxNorm: 586970 1 Tablet(s) PO Q12H 11/29/20 18 2017 Inactive albuterol sulfate 2.5 mg/3 mL (0.083 %) solution for nebulization RxNorm: 950484 1 Vial INH QID 08/10/20 18 2018 Inactive 60/box. Please do not fill early. Please do not auto refill. buspirone 7.5 mg tablet RxNorm: 835126 1 Tablet(s) PO BID 08/09/20 18 2018 Inactive Prozac 10 mg capsule RxNorm: 358627 1 Capsule(s) PO daily 08/09/20 18 2017 Inactive gabapentin 300 mg capsule RxNorm: 248230 1 Capsule(s) PO TID as needed 08/01/20 18 2018 Inactive hydrochlorothiazide 12.5 mg tablet RxNorm: 479995 1 Tablet(s) PO QAM 08/01/20 18 2018 Inactive ranitidine 150 mg tablet RxNorm: 789374 1 Tablet(s) PO BID 08/01/20 18 2018 Inactive Macrobid 100 mg capsule RxNorm: 374131 1 Capsule(s) PO Q12H 06/21/20 18 2017 Inactive Singulair 10 mg tablet RxNorm: 071297 1 Tablet(s) PO daily 06/14/20 18 2018 Inactive Ventolin HFA 90 mcg/actuation aerosol inhaler RxNorm: 5355713 2 Puff(s) INH QID 06/14/20 18 2018 Inactive Prozac 10 mg capsule RxNorm: 774050 1 Capsule(s) PO daily 06/14/20 18 2017 Inactive Singulair 10 mg tablet RxNorm: 955050 1 Tablet(s) PO daily 06/14/20 18 2017 Inactive buspirone 7.5 mg tablet RxNorm: 959193 1 Tablet(s) PO BID 06/14/20 18 2017 Inactive Neilmed Pediatric Sinus Rinse Refill packet RxNorm: 1 Unit Dose NASAL PRN 05/31/20 18 2021 Inactive Aleve 220 mg capsule RxNorm: 9378617 1 Capsule(s) PO BID 05/31/20 18 2018 Inactive diclofenac sodium 75 mg tablet,delayed release RxNorm: 134594 1 Tablet(s) PO BID 05/31/20 18 2017 Inactive lisinopril 2.5 mg tablet RxNorm: 874373 1 Tablet(s) PO daily 05/31/20 18 2017 Inactive metoprolol succinate ER 50 mg tablet,extended release 24 hr RxNorm: 117960 1 Tablet(s) PO daily 05/31/20 18 2017 Inactive levothyroxine 50 mcg tablet RxNorm: 364850 1 Tablet(s) PO daily 05/31/20 18 2017 Inactive TRUEplus Lancets 30 gauge RxNorm: 1 Lancets Miscellaneous QAM 05/31/20 18 2017 Inactive 100/box Ventolin HFA 90 mcg/actuation aerosol inhaler RxNorm: 686976 2 Puff(s) INH QID 05/31/20 18 2017 Inactive ranitidine 150 mg tablet RxNorm: 737411 1 Tablet(s) PO BID 05/31/20 18 2017 Inactive gabapentin 300 mg capsule RxNorm: 495840 1 Capsule(s) PO TID as needed 05/31/20 18 2017 Inactive atorvastatin 20 mg tablet RxNorm: 499194 1 Tablet(s) PO QHS 05/31/20 18 2017 Inactive True Metrix Glucose Test Strip RxNorm: 1 Test Strips Miscellaneous QA 05/31/20 18 2017 Inactive 50/container Calcium 600-D3 Plus 600 mg calcium-800 unit-50 mg tablet RxNorm: 1 Tablet(s) PO daily take an additonal tablet for itching. 05/31/20 18 2017 Inactive hydrochlorothiazide 12.5 mg tablet RxNorm: 525470 1 Tablet(s) PO QAM 05/31/20 18 2017 Inactive Flintstones Complete (iron) 18 mg iron chewable tablet RxNorm: 1 Tablet(s) PO daily 05/31/20 18 2017 Inactive True Metrix Glucose Meter RxNorm: miscellaneous 08/17/20 19 2018 Inactive loperamide 2 mg tablet RxNorm: 392058 oral 09/29/20 19 2018 Inactive d-mannose oral [...] Ophthalmol ogy Referral Information Referral Initiated Referral: [facility] WPtel: [address] [place] [address] [address] Change Manager placed a call out to the patient to notify her that it has been recommended that she be seen by 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 Patient agreed to be seen, does not have a provider of choice and no transportation issues. Change Manager faxed referral and clinical notes to [facility] in [place], [place] near the patient's home. Patient to [...] seen and prefers a provider in the [place] or [facility]. Change Manager placed a call out to everyone listed in the area and the only location that was able to accept the patient's insurance was [place] [address] [place] [address] and spoke with Maylin. Maylin asked that the patient's referral, face sheet and visit notes be faxed to . Change Manager faxed over requested documents. Patient appointment confirmation letter generated and mailed to her home address. Patient to call to schedule an appointment. Processed Referral: [facility] W[facility]el: [address] [place] [address] [place] [address] Patient notified that it has been advised that she be seen by Neurology. Patient agreed to be seen and prefers to be seen by a provider in the [place], [place] area. Patient denies any concerns with transportation, and prefers to schedule her own appointment. Change Manager placed a call out to [facility] and spoke with Neeraj P: who confirmed that their office is able to accept new patients and the patient's insurance. After confirming the providers fax number, conventional underwriter faxed over the patient's referral, and [...]
--- OUTSIDE RECORDS SUMMARY | 2018-09-10 20:00 | XMS_ITS | CCD ---
Author Name Ursula Palafox NP y Address [address] [place] [address] Phone Organization [facility] Phone Care Team Providers Care Monogram Maker Name Role Phone Palomo KING, Anna Primary Care Provider Unav ailable Unavailable Chronic Care Management Unavaila ble Summary Purpose DataExchange Insurance Providers Payer name Policy type / Coverage type Covered libertarian ID Effective Begin Date Effective End Date 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 Please do not fill early. Please do not auto refill. buspirone 7.5 mg tablet RxNorm: 468050 1 Tablet(s) PO BID 08/09/20 18 2018 Inactive Prozac 10 mg capsule RxNorm: 719966 1 Capsule(s) PO daily 08/09/20 18 2017 Inactive gabapentin 300 mg capsule RxNorm: 434985 1 Capsule(s) PO TID as needed 08/01/20 18 2018 Inactive hydrochlorothiazide 12.5 mg tablet RxNorm: 230435 1 Tablet(s) PO QAM 08/01/20 18 2018 Inactive ranitidine 150 mg tablet RxNorm: 575881 1 Tablet(s) PO BID 08/01/20 18 2018 Inactive Macrobid 100 mg capsule RxNorm: 191803 1 Capsule(s) PO Q12H 06/21/20 18 2017 Inactive Singulair 10 mg tablet RxNorm: 011046 1 Tablet(s) PO daily 06/14/20 18 2018 Inactive Ventolin HFA 90 mcg/actuation aerosol inhaler RxNorm: 2548487 2 Puff(s) INH QID 06/14/20 18 2018 Inactive Prozac 10 mg capsule RxNorm: 687504 1 Capsule(s) PO daily 06/14/20 18 2017 Inactive Singulair 10 mg tablet RxNorm: 214746 1 Tablet(s) PO daily 06/14/20 18 2017 Inactive buspirone 7.5 mg tablet RxNorm: 709704 1 Tablet(s) PO BID 06/14/20 18 2017 Inactive Neilmed Pediatric Sinus Rinse Refill packet RxNorm: 1 Unit Dose NASAL PRN 05/31/20 18 2021 Inactive TRUEplus Lancets 30 gauge RxNorm: 1 Lancets Miscellaneous QAM 05/31/20 18 2017 Inactive 100/box Aleve 220 mg capsule RxNorm: 9556839 1 Capsule(s) PO BID 05/31/20 18 2018 Inactive diclofenac sodium 75 mg tablet,delayed release RxNorm: 593968 1 Tablet(s) PO BID 05/31/20 18 2017 Inactive lisinopril 2.5 mg tablet RxNorm: 664262 1 Tablet(s) PO daily 05/31/20 18 2017 Inactive metoprolol succinate ER 50 mg tablet,extended release 24 hr RxNorm: 230320 1 Tablet(s) PO daily 05/31/20 18 2017 Inactive levothyroxine 50 mcg tablet RxNorm: 875170 1 Tablet(s) PO daily 05/31/20 18 2017 Inactive Ventolin HFA 90 mcg/actuation aerosol inhaler RxNorm: 421458 2 Puff(s) INH QID 05/31/20 18 2017 Inactive ranitidine 150 mg tablet RxNorm: 081256 1 Tablet(s) PO BID 05/31/20 18 2017 Inactive gabapentin 300 mg capsule RxNorm: 290403 1 Capsule(s) PO TID as needed 05/31/20 18 2017 Inactive atorvastatin 20 mg tablet RxNorm: 912943 1 Tablet(s) PO QHS 05/31/20 18 2017 Inactive True Metrix Glucose Test Strip RxNorm: 1 [facility] 05/31/20 18 2017 Inactive 50/container Calcium 600-D3 Plus 600 mg calcium-800 unit-50 mg tablet RxNorm: 1 Tablet(s) PO daily take an additonal tablet for itching. 05/31/20 18 2017 Inactive hydrochlorothiazide 12.5 mg tablet RxNorm: 113327 1 Tablet(s) PO QAM 05/31/20 18 2017 Inactive Flintstones Complete (iron) 18 mg iron chewable tablet RxNorm: 1 Tablet(s) PO daily 05/31/20 18 2017 Inactive True Metrix Glucose Meter RxNorm: miscellaneous 08/17/20 19 2018 Inactive loperamide 2 mg tablet RxNorm: 054497 oral 09/29/20 19 2018 Inactive d-mannose oral powder RxNorm: PO 18 2021 Inactive Medication Administered No Medication Administered data Results Observation Observation Code Item Item Code Result Date Service Location PHOSPHORUS 45536 Phosphorus 2777-1 3.3 mg/dL 09/08/20 18 [facility] [address] [place] [address] MAGNESIUM 71155 Magnesium 99318-8 2.2 mg/dL 09/08/20 18 [facility] [address] [place] [address] CHEM 14 (METABOLIC PANEL) 45336 Glucose 2345-7 94 mg/dL 09/08/20 18 [facility] [address] [place] [address] CHEM 14 (METABOLIC PANEL) 10307 BUN 3094-0 8 mg/dL 09/08/20 18 [facility] [address] [place] [address] CHEM 14 (METABOLIC PANEL) 60272 Creatinine 2160-0 0.7 mg/dL 09/08/20 18 [facility] [address] [place] [address] CHEM 14 (METABOLIC PANEL) 28408 BUN/Creat Ratio 3097-3 12.2 09/08/20 18 [facility] [address] [place] [address] CHEM 14 (METABOLIC PANEL) 21926 GFR Estimated 29124-9 104 mL/min/1.7 3m2 09/08/20 18 [facility] [address] [place] [address] CHEM 14 (METABOLIC PANEL) 49886 GFR Estimated for Americans 06417-4 125 mL/min/1.7 3m2 09/08/20 18 [facility] [address] [place] [address] CHEM 14 (METABOLIC PANEL) 73485 Sodium 2951-2 140 mmol/L 09/08/20 18 [facility] [address] [place] [address] CHEM 14 (METABOLIC PANEL) 34752 Potassium 2823-3 4.0 mmol/L 09/08/20 18 [facility] [address] [place] [address] CHEM 14 (METABOLIC PANEL) 75877 Chloride 2075-0 103 mmol/L 09/08/20 18 [facility] [address] [place] [address] CHEM 14 (METABOLIC PANEL) 98611 Total CO2 2028-9 29 mmol/L 09/08/20 18 [facility] [address] [place] [address] CHEM 14 (METABOLIC PANEL) 94064 Anion Gap 1863-0 12.0 mEq/L 09/08/20 18 [facility] [address] [place] [address] CHEM 14 (METABOLIC PANEL) 17026 Calculated Serum Osmolality 07867-5 288 mOsm/kg 09/08/20 18 [facility] [address] [place] [address] CHEM 14 (METABOLIC PANEL) 06825 Albumin 60533-2 3.7 g/dL 09/08/20 18 [facility] [address] [place] [address] CHEM 14 (METABOLIC PANEL) 58399 Total Protein 2885-2 7.0 g/dL 09/08/20 18 [facility] [address] [place] [address] CHEM 14 (METABOLIC PANEL) 68757 Globulin 2336-6 3.3 g/dL 09/08/20 18 [facility] [address] [place] [address] CHEM 14 (METABOLIC PANEL) 59611 Albumin/Globuli n Ratio 1759-0 1.1 09/08/20 18 [facility] [address] [place] [address] CHEM 14 (METABOLIC PANEL) 82745 ALK PHOS 6768-6 84.00 U/L 09/08/20 18 [facility] [address] [place] [address] CHEM 14 (METABOLIC PANEL) 46500 SGOT/AST 1920-8 23 U/L 09/08/20 18 [facility] [address] [place] [address] CHEM 14 (METABOLIC PANEL) 57024 SGPT/ALT 1743-4 69 U/L 09/08/20 18 [facility] [address] [place] [address] CHEM 14 (METABOLIC PANEL) 57986 Total Bilirubin 1975-2 0.5 mg/dL 09/08/20 18 [facility] [address] [place] [address] CHEM 14 (METABOLIC PANEL) 64796 Calcium 17935-8 9.3 mg/dL 09/08/20 18 [facility] [address] [place] [address] CHEM 14 (METABOLIC PANEL) 42233 Corrected Calcium 81096-0 9.7 mg/dL 09/08/20 18 [facility] [address] [place] [address] [id number] OBIN 4548-4 Glyco HGB A1C 53006-8 5.7 % 09/08/20 18 [facility] [address] [place] [address] [id number] OBIN 4548-4 eAG 61679-2 117 mg/dL 09/08/20 18 [facility] [address] [place] [address] VITAMIN D 88365 Vitamin D 88242-7 43.8 ng/mL 09/08/20 18 [facility] [address] [place] [address] COMPLETE CBC W/ DIFF WBC 92233 WBC 6690-2 8.0 K/ul 09/08/20 18 [facility] [address] [place] [address] COMPLETE CBC W/ DIFF WBC 06470 RBC 789-8 4.31 M/uL 09/08/20 18 [facility] [address] [place] [address] COMPLETE CBC W/ DIFF WBC 50359 Hemoglobin 718-7 12.0 g/dL 09/08/20 18 [facility] [address] [place] [address] COMPLETE CBC W/ DIFF WBC 91562 Hematocrit 4544-3 37.8 % 09/08/20 18 [facility] [address] [place] [address] COMPLETE CBC W/ DIFF WBC 71354 MCV 787-2 87.7 fL 09/08/20 18 [facility] [address] [place] [address] COMPLETE CBC W/ DIFF WBC 44208 MCH 785-6 27.9 pg 09/08/20 18 [facility] [address] [place] [address] COMPLETE CBC W/ DIFF WBC 79457 MCHC 786-4 31.8 g/dL 09/08/20 18 [facility] [address] [place] [address] COMPLETE CBC W/ DIFF WBC 55810 RDW 788-0 14.6 % 09/08/20 18 [facility] [address] [place] [address] COMPLETE CBC W/ DIFF WBC 15606 Platelet Count 777-3 346 K/uL 09/08/20 18 [facility] [address] [place] [address] COMPLETE CBC W/ DIFF WBC 42366 MPV 79239-3 9.2 fL 09/08/20 18 [facility] [address] [place] [address] COMPLETE CBC W/ DIFF WBC 62765 Neutrophils % 770-8 71.7 % 09/08/20 18 [facility] [address] [place] [address] COMPLETE CBC W/ DIFF WBC 73114 Lymphocytes % 736-9 23.0 % 09/08/20 18 [facility] [address] [place] [address] COMPLETE CBC W/ DIFF WBC 94293 Monocytes % 5905-5 4.0 % 09/08/20 18 [facility] [address] [place] [address] COMPLETE CBC W/ DIFF WBC 93926 Eosinophils % 713-8 1.2 % 09/08/20 18 [facility] [address] [place] [address] COMPLETE CBC W/ DIFF WBC 20391 Basophils% 706-2 0.1 % 09/08/20 18 [facility] [address] [place] [address] COMPLETE CBC W/ DIFF WBC 83098 Absolute Neutrophil 751-8 5736 /ul 09/08/20 18 [facility] [address] [place] [address] COMPLETE CBC W/ DIFF WBC 52279 Absolute Lymphocyte 26713-7 1840 /ul 09/08/20 18 [facility] [address] [place] [address] COMPLETE CBC W/ DIFF WBC 93275 Absolute Monocyte 742-7 320 /ul 09/08/20 18 [facility] [address] [place] [address] COMPLETE CBC W/ DIFF WBC 42663 Absolute Eosinophil 711-2 96 /ul 09/08/20 18 [facility] [address] [place] [address] COMPLETE CBC W/ DIFF WBC 86420 Absolute Basophil 704-7 8 /ul 09/08/20 18 [facility] [address] [place] [address] Vital Signs Date Vital 09/06/2018 Blood Pressure 1: 110/80 Code: 8480-6 BMI: 55.7 Code: 12927-0 Heart Rate 1: 74 bpm Height: 4'11 Code: 8302-2 Random Blood Sugar: 106/NaN Respiratory Rate: 16 bpm SpO2: 98% Temperature: 36.5 (C) / 97.7 (F) Weight: 276 lbs Code: 60296-4 Reason For Visit Reason For Visit Effective Dates Notes appropriateness for house call services 09/06/20 18 post traumatic stress disorder 09/06/2018 neurologic complaint 09/06/2018 headache 09/06/2018 Encounters Encounter Performer Location Location Address Codes Magdi e HOME VISIT EST PATIENT Diagnosis: Type 2 diabetes mellitus without complications[ICD 10: E11.9] Diagnosis: Essential (primary) hypertension[ICD1 0: I10] Diagnosis: Chronic kidney disease, unspecified[ICD10 : N18.9] Diagnosis: Hypothyroidism, unspecified[ICD10 : E03.9] Diagnosis: Encounter for screening, unspecified[ICD10 : Z13.9] Diagnosis: Post-traumatic stress disorder, unspecified[ICD10 : F43.10] Diagnosis: Adjustment disorder with mixed anxiety and depressed mood[ICD10: F43.23] Rasta Palafox [place] [address] [place] [address] [place] [address] CPT-4: 42436 09/06/2018 Plan of Care Planned Activity Notes Codes Status Date Visit Plan: E11-250.00 Type 2 diabetes mellitus without complications Chronic, [...] probably get sentenced to 6-8 yrs in correction. I'm going to stand right beside him no matter what buspirone 7.5 mg tablet 1 Tablet(s) PO BID 30 days Refills: 1 Qty: 60 [06/14/2018 - 08/12/2018] : will evaluate for increase at next visit Prozac 10 mg capsule 1 Capsule(s) PO daily 30 days Refills: 1 Qty: 30 [06/14/2018 - 08/12/2018] POC: being managed by [facility] BAUDILIO Dowling Seeing counselor at [facility] also [phone] Unspecified asthma, uncomplicated R06.2-786.07 [...] when sitting, avoid high salt foods. 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 All NSAIDs have a Black Box warning for GI Bleed, MT CHF, stroke & can increase peripheral edema. Choose only one NSAID & that that medication as directed/Rx'd. Use acetaminophen as directed: </= 3 grams/day from all sources! R94.31-794.31 Abnormal electrocardiogram [ECG] [EKG] Sinus Rhythm - T-abnormality - Possible Anterior ischemia pattern. ABNORMAL 09/06/2018 Patient Education: Patient Medication Summary Completed 09/06/2018 Patient Education: Headaches Completed 09/06/2018 Patient Education: Obesity Completed 09/06/2018 Referral: Pending Gynecology Referral Information Referral Processed Referral: Pending Pulmonology Referral Information Referral Processed Referral: Pending Psychiatry Referral Information Referral Initiated Referral: Pending Respiratory Services Referral Information Referral Initiated Referral: Pending Ophthalmology Referral Information Referral Initiated Referral: [facility] WPtel: [address] [place] [address] Senior Animal Trainer placed a call out to the patient to notify her that it has been recommended that she be seen by 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 Patient agreed to be seen, does not have a provider of choice and no transportation issues. Senior Animal Trainer faxed referral and clinical notes to [facility] in [place], [place] near the patient's home. Patient to [...] seen and prefers a provider in the [place] or [facility]. Senior Animal Trainer placed a call out to everyone listed in the area and the only location that was able to accept the patient's insurance was [facility] [place] [address] and spoke with Maylin. Maylin asked that the patient's referral, face sheet and visit notes be faxed to . Senior Animal Trainer faxed over requested documents. Patient appointment confirmation letter generated and mailed to her home address. Patient to call to schedule an appointment. Processed Referral: [facility] WPtel: [address] [place] [place] [address] [phone] [id number] Patient notified that it has been advised that she be seen by Neurology. Patient agreed to be seen and prefers to be seen by a provider in the [place], [place] area. Patient denies any concerns with transportation, and prefers to schedule her own appointment. Senior Animal Trainer placed a call out to [facility] and spoke with Neeraj P: who confirmed that their office is able to accept new patients and the patient's insurance. After confirming the providers fax number, appeals writer faxed over the patient's referral, and [...] probably get sentenced to 6-8 yrs in correction. I'm going to stand right beside him no matter what buspirone 7.5 mg tablet; 1 Tablet(s) PO BID; 30 days; Refills: 1; Qty: 60 [06/14/2018 - 08/12/2018]; : will evaluate for increase at next visit Prozac 10 mg capsule; 1 Capsule(s) PO daily; 30 days; Refills: 1; Qty: 30 [06/14/2018 - 08/12/2018] POC: being managed by [facility] BAUDILIO Dowling Seeing counselor at [facility] also [id number] Unspecified asthma, uncomplicated R06.2-786.07 [...] when sitting, avoid high salt foods. Z79.1-V58.64 residential (current) use of non-steroidal anti-inflammatories (NSAID) Aleve 220 mg capsule; 1 Capsule(s) PO BID; 30 days; Qty: 60 [05/31/2018 - 06/29/2018]; diclofenac sodium 75 mg tablet,delayed release; 1 Tablet(s) PO BID; 30 days; Qty: 60 [05/31/2018 - 06/29/2018] OTC Ibuprofen Pt education: can only take 1 one NSAD medication (per day,week). All NSAIDs have a Black Box warning for GI Bleed, MT CHF, stroke & can increase peripheral edema. Choose only one NSAID & that that medication as directed/Rx'd. Use acetaminophen as directed: </= 3 grams/day from all sources! R94.31-794.31 Abnormal electrocardiogram [ECG] [EKG] Sinus Rhythm - T-abnormality - Possible Anterior ischemia pattern. ABNORMAL 09/06/2018 Medical Equipment No Medical Equipment data Advance Directives No Advance Directive data
--- OUTSIDE RECORDS SUMMARY | 2018-09-23 20:00 | XMS_ITS | CCD ---
Author Name Viktoriya BOWMAN, Dr Lee Address [facility] [address], [place] [address] Phone Organization [employer] [facility] Phone Care Team Providers Care Postbed Stitcher Name Role Phone Palomo SCHOOL BUS DRIVER, Anna Primary Care Provider Unav ailable Unavailable Chronic Care Management Unavaila ble Summary Purpose DataExchange Insurance Providers Payer name Policy type / Coverage type Covered republican ID Effective Begin Date Effective End Date SUKI BUTTS [facility] [id number] Unknown Unknown Family history Mother Diagnosis Age [...] Unknown Disability 05/31/[address]: 552831421 Has never s moked or chewed tobacco 05/31/[address]: 953707930 Never drinks alco hol 05/31/2018 Has the [...] infe ction, unspecified ICD-10: J06.9 ICD-9: 465.9 09/23/2018 Active Adjustment disorder with mix ed anxiety [...] complications ICD-10: E11.9 ICD-9: 250.00 09/05/2018 Active Unspecified asthma, uncomplicated ICD-10 : J45.909 ICD-9: 493.90 08/08/2018 Active Wheezing ICD-10: R06.2 ICD-9: 786.07 08/08/2018 Active Edema, unspecified ICD-10: R60.9 ICD-9: 782.3 07/11/2018 Active care home (current) use of non-steroidal anti-inflammatories (NSAID) ICD-10: [...] 10 mg-100 mg/5 mL oral liquid RxNorm: 879377 10 Milliliter(s) PO As needed every 4 hr 09/24/20 18 2018 Inactive Vicks Vaporub 4.7 %-1.2 %-2.6 % topical ointment RxNorm: 6542547 1 Application TOP TID 09/24/20 18 2018 Inactive levmetamfetamine 50 mg nasal inhaler RxNorm: 1 Unit(s) NASAL Q3-4H 09/24/20 18 2017 Inactive sertraline 50 mg tablet RxNorm: 113924 1 Tablet(s) PO daily 09/09/20 18 2018 Inactive Please note dose trazodone 50 mg tablet RxNorm: 604458 1 Tablet(s) PO QHS 09/06/20 18 2018 Inactive sertraline 50 mg tablet RxNorm: 093307 1 Tablet(s) PO daily 09/06/20 18 2017 Inactive amoxicillin 500 mg tablet RxNorm: 958752 1 Tablet(s) PO Q12H 08/31/20 18 2017 Inactive albuterol sulfate 2.5 mg/3 mL (0.083 %) solution for nebulization RxNorm: 846487 1 Vial INH QID 08/10/20 18 2018 Inactive 60/box. Please do not fill early. Please do not auto refill. buspirone 7.5 mg tablet RxNorm: 551959 1 Tablet(s) PO BID 08/09/20 18 2018 Inactive Prozac 10 mg capsule RxNorm: 384521 1 Capsule(s) PO daily 08/09/20 18 2017 Inactive gabapentin 300 mg capsule RxNorm: 671502 1 Capsule(s) PO TID as needed 08/01/20 18 2018 Inactive hydrochlorothiazide 12.5 mg tablet RxNorm: 557572 1 Tablet(s) PO QAM 08/01/20 18 2018 Inactive ranitidine 150 mg tablet RxNorm: 268592 1 Tablet(s) PO BID 08/01/20 18 2018 Inactive Macrobid 100 mg capsule RxNorm: 775239 1 Capsule(s) PO Q12H 06/21/20 18 2017 Inactive Singulair 10 mg tablet RxNorm: 906730 1 Tablet(s) PO daily 06/14/20 18 2018 Inactive Ventolin HFA 90 mcg/actuation aerosol inhaler RxNorm: 9525889 2 Puff(s) INH QID 06/14/20 18 2018 Inactive Singulair 10 mg tablet RxNorm: 380948 1 Tablet(s) PO daily 06/14/20 18 2017 Inactive buspirone 7.5 mg tablet RxNorm: 578035 1 Tablet(s) PO BID 06/14/20 18 2017 Inactive Prozac 10 mg capsule RxNorm: 522262 1 Capsule(s) PO daily 06/14/20 18 2017 Inactive Neilmed Pediatric Sinus Rinse Refill packet RxNorm: 1 Unit Dose NASAL PRN 05/31/20 18 2021 Inactive Aleve 220 mg capsule RxNorm: 5434401 1 Capsule(s) PO BID 05/31/20 18 2018 Inactive diclofenac sodium 75 mg tablet,delayed release RxNorm: 708207 1 Tablet(s) PO BID 05/31/20 18 2017 Inactive lisinopril 2.5 mg tablet RxNorm: 599246 1 Tablet(s) PO daily 05/31/20 18 2017 Inactive metoprolol succinate ER 50 mg tablet,extended release 24 hr RxNorm: 122758 1 Tablet(s) PO daily 05/31/20 18 2017 Inactive levothyroxine 50 mcg tablet RxNorm: 772521 1 Tablet(s) PO daily 05/31/20 18 2017 Inactive TRUEplus Lancets 30 gauge RxNorm: 1 Lancets Miscellaneous QAM 05/31/20 18 2017 Inactive 100/box Ventolin HFA 90 mcg/actuation aerosol inhaler RxNorm: 975929 2 Puff(s) INH QID 05/31/20 18 2017 Inactive ranitidine 150 mg tablet RxNorm: 134784 1 Tablet(s) PO BID 05/31/20 18 2017 Inactive gabapentin 300 mg capsule RxNorm: 109599 1 Capsule(s) PO TID as needed 05/31/20 18 2017 Inactive atorvastatin 20 mg tablet RxNorm: 114854 1 Tablet(s) PO QHS 05/31/20 18 2017 Inactive True Metrix Glucose Test Strip RxNorm: 1 Test Strips Miscellaneous QAM 05/31/20 18 2017 Inactive 50/container Calcium 600-D3 Plus 600 mg calcium-800 unit-50 mg tablet RxNorm: 1 Tablet(s) PO daily take an additonal tablet for itching. 05/31/20 18 2017 Inactive hydrochlorothiazide 12.5 mg tablet RxNorm: 789540 1 Tablet(s) PO QAM 05/31/20 18 2017 Inactive Flintstones Complete (iron) 18 mg iron chewable tablet RxNorm: 1 Tablet(s) PO daily 05/31/20 18 2017 Inactive True Metrix Glucose Meter RxNorm: miscellaneous 08/17/20 19 2018 Inactive loperamide 2 mg tablet RxNorm: 648027 oral 09/29/20 19 2018 Inactive d-mannose oral powder RxNorm: PO 18 2021 Inactive Medication Administered No Medication Administered data Reason For Visit No Reason For Visit data Plan of Care Planned Activity Notes Codes Status Date Patient Education: Patient Medication Summary Completed 09/24/2018 Referral: Pending Gynecology Referral Information Referral Processed Referral: Pending Pulmonolog y Referral Information Referral Processed Referral: Pending Psychiatry Referral Information Referral Initiated Referral: Pending Respirator y Services Referral Information Referral Initiated Referral: Pending Ophthalmology Referral Information Referral Initiated Referral: [facility] WPtel: [address] [place] [address] [place] [address] [place] Crime Scene Photographer placed a call out to the patient to notify her that it has been recommended that she be seen by 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 Patient agreed to be seen, does not have a provider of choice and no transportation issues. Crime Scene Photographer faxed referral and clinical notes to [facility] in [place], [place] near the patient's home. Patient to [...] seen and prefers a provider in the [place] or [place] area. Crime Scene Photographer placed a call out to everyone listed in the area and the only location that was able to accept the patient's insurance was [facility] [address] [place] [address] and spoke with Maylin. Maylin asked that the patient's referral, face sheet and visit notes be faxed to . Crime Scene Photographer faxed over requested documents. Patient appointment confirmation letter generated and mailed to her home address. Patient to call to schedule an appointment. Processed Referral: [facility] y WPtel: [address] [place], [place] [address] Patient notified that it has been advised that she be seen by Neurology. Patient agreed to be seen and prefers to be seen by a provider in the [place], [place] area. Patient denies any concerns with transportation, and prefers to schedule her own appointment. Crime Scene Photographer placed a call out to [facility] and spoke with Neeraj P: who confirmed that their office is able to accept new patients and the patient's insurance. After confirming the providers fax number, freelance writer faxed over the patient's referral, and [...]
--- OUTSIDE RECORDS SUMMARY | 2018-09-27 20:00 | XMS_ITS | CCD ---
Author Name Ursula Palafox NP y Address [address] [facility] [address] [place] [address] Phone Organization [facility] Phone Care Team Providers Care Bioinformatics Team Member Name Role Phone Palomo KING, Anna Primary Care Provider Unav ailable Unavailable Chronic Care Management Unavaila ble Summary Purpose DataExchange Insurance Providers Payer name Policy type / Coverage type Covered libertarian ID Effective Begin Date Effective End Date [employer]KI [employer]TS [employer] [id number] Unknown Unknown Family history Mother Diagnosis Age [...] Unknown Disability 05/31/[address]: 374591761 Has never s moked or chewed tobacco 05/31/[address]: 665101666 Never drinks alco hol 05/31/2018 Has the [...] unspecified ICD-10: R60.9 ICD-9: 782.3 07/11/2018 Active [facility] (current) use of non-steroidal anti-inflammatories (NSAID) ICD-10: [...] Start Date Stop Date Status Fill Instructions cetirizine 10 mg tablet RxNorm: 9634329 1 Tablet(s) PO daily 09/28/20 18 2018 Inactive Guaiasorb DM 10 mg-100 mg/5 mL oral liquid RxNorm: 965098 10 Milliliter(s) PO As needed every 4 hr 09/24/20 18 2018 Inactive Vicks Vaporub 4.7 %-1.2 %-2.6 % topical ointment RxNorm: 0657258 1 Application TOP TID 09/24/20 18 2018 Inactive levmetamfetamine 50 mg nasal inhaler RxNorm: 1 Unit(s) NASAL Q3-4H 09/24/20 18 2017 Inactive sertraline 50 mg tablet RxNorm: 866218 1 Tablet(s) PO daily 09/09/20 18 2018 Inactive Please note dose trazodone 50 mg tablet RxNorm: 971319 1 Tablet(s) PO QHS 09/06/20 18 2018 Inactive sertraline 50 mg tablet RxNorm: 698562 1 Tablet(s) PO daily 09/06/20 18 2017 Inactive amoxicillin 500 mg tablet RxNorm: 846246 1 Tablet(s) PO Q12H 08/31/20 18 2017 Inactive albuterol sulfate 2.5 mg/3 mL (0.083 %) solution for nebulization RxNorm: 993931 1 Vial INH QID 08/10/20 18 2018 Inactive 60/box. Please do not fill early. Please do not auto refill. buspirone 7.5 mg tablet RxNorm: 072294 1 Tablet(s) PO BID 08/09/20 18 2018 Inactive Prozac 10 mg capsule RxNorm: 549205 1 Capsule(s) PO daily 08/09/20 18 2017 Inactive gabapentin 300 mg capsule RxNorm: 230777 1 Capsule(s) PO TID as needed 08/01/20 18 2018 Inactive hydrochlorothiazide 12.5 mg tablet RxNorm: 689818 1 Tablet(s) PO QAM 08/01/20 18 2018 Inactive ranitidine 150 mg tablet RxNorm: 338173 1 Tablet(s) PO BID 08/01/20 18 2018 Inactive Macrobid 100 mg capsule RxNorm: 009536 1 Capsule(s) PO Q12H 06/21/20 18 2017 Inactive Singulair 10 mg tablet RxNorm: 399814 1 Tablet(s) PO daily 06/14/20 18 2018 Inactive Ventolin HFA 90 mcg/actuation aerosol inhaler RxNorm: 8376488 2 Puff(s) INH QID 06/14/20 18 2018 Inactive Singulair 10 mg tablet RxNorm: 088484 1 Tablet(s) PO daily 06/14/20 18 2017 Inactive buspirone 7.5 mg tablet RxNorm: 365593 1 Tablet(s) PO BID 06/14/20 18 2017 Inactive Prozac 10 mg capsule RxNorm: 441031 1 Capsule(s) PO daily 06/14/20 18 2017 Inactive Neilmed Pediatric Sinus Rinse Refill packet RxNorm: 1 Unit Dose NASAL PRN 05/31/20 18 2021 Inactive Aleve 220 mg capsule RxNorm: 6753543 1 Capsule(s) PO BID 05/31/20 18 2018 Inactive diclofenac sodium 75 mg tablet,delayed release RxNorm: 237085 1 Tablet(s) PO BID 05/31/20 18 2017 Inactive lisinopril 2.5 mg tablet RxNorm: 301882 1 Tablet(s) PO daily 05/31/20 18 2017 Inactive metoprolol succinate ER 50 mg tablet,extended release 24 hr RxNorm: 136933 1 Tablet(s) PO daily 05/31/20 18 2017 Inactive levothyroxine 50 mcg tablet RxNorm: 033688 1 Tablet(s) PO daily 05/31/20 18 2017 Inactive TRUEplus Lancets 30 gauge RxNorm: 1 Lancets Miscellaneous QAM 05/31/20 18 2017 Inactive 100/box Ventolin HFA 90 mcg/actuation aerosol inhaler RxNorm: 045426 2 Puff(s) INH QID 05/31/20 18 2017 Inactive ranitidine 150 mg tablet RxNorm: 248145 1 Tablet(s) PO BID 05/31/20 18 2017 Inactive gabapentin 300 mg capsule RxNorm: 456139 1 Capsule(s) PO TID as needed 05/31/20 18 2017 Inactive atorvastatin 20 mg tablet RxNorm: 750442 1 Tablet(s) PO QHS 05/31/20 18 2017 Inactive True Metrix Glucose Test Strip RxNorm: 1 Test Strips Miscellaneous QA 05/31/20 18 2017 Inactive 50/container Calcium 600-D3 Plus 600 mg calcium-800 unit-50 mg tablet RxNorm: 1 Tablet(s) PO daily take an additonal tablet for itching. 05/31/20 18 2017 Inactive hydrochlorothiazide 12.5 mg tablet RxNorm: 568736 1 Tablet(s) PO QAM 05/31/20 18 2017 Inactive Flintstones Complete (iron) 18 mg iron chewable tablet RxNorm: 1 Tablet(s) PO daily 05/31/20 18 2017 Inactive True Metrix Glucose Meter RxNorm: miscellaneous 08/17/20 19 2018 Inactive loperamide 2 mg tablet RxNorm: 201015 oral 09/29/20 19 2018 Inactive d-mannose oral powder RxNorm: PO 18 2021 Inactive Medication Administered No Medication Administered data Reason For Visit No Reason For Visit data Plan of Care Planned Activity Notes Codes Status Date Patient Education: Patient Medication Summary Completed 09/28/2018 Referral: Pending Gynecology Referral Information Referral Processed Referral: Pending Pulmonolog y Referral Information Referral Processed Referral: Pending Psychiatry Referral Information Referral Initiated Referral: Pending Respirator y Services Referral Information Referral Initiated Referral: Pending Ophthalmology Referral Information Referral Initiated Referral: [facility] WPtel: [address] [place] [address] [place] Small Craft Operator placed a call out to the patient to notify her that it has been recommended that she be seen by 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 Patient agreed to be seen, does not have a provider of choice and no transportation issues. Small Craft Operator faxed referral and clinical notes to [facility] in [place], [place] near the patient's home. Patient to [...] seen and prefers a provider in the [place] or [place] area. Small Craft Operator placed a call out to everyone listed in the area and the only location that was able to accept the patient's insurance was [place] [address] [place] [address] and spoke with Maylin. Maylin asked that the patient's referral, face sheet and visit notes be faxed to . Small Craft Operator faxed over requested documents. Patient appointment confirmation letter generated and mailed to her home address. Patient to call to schedule an appointment. Processed Referral: [facility] Neurolog y WPtel: [address] [place] [address] Patient notified that it has been advised that she be seen by Neurology. Patient agreed to be seen and prefers to be seen by a provider in the [place], [place] area. Patient denies any concerns with transportation, and prefers to schedule her own appointment. Small Craft Operator placed a call out to [facility] and spoke with Neeraj P: who confirmed that their office is able to accept new patients and the patient's insurance. After confirming the providers fax number, financial underwriter faxed over the patient's referral, and [...]
--- OUTSIDE RECORDS SUMMARY | 2018-10-05 20:00 | XMS_ITS | CCD ---
Author Name Ursula Palafox NP y Address [address] [facility] [address] [place] [address] Phone Organization [facility] Phone Care Team Providers Care Corporate Director Name Role Phone Palomo KING, Anna Primary Care Provider Unav ailable Unavailable Chronic Care Management Unavaila ble Summary Purpose DataExchange Insurance Providers Payer name Policy type / Coverage type Covered alliance party ID Effective Begin Date Effective End Date SUKI BUTTS [facility] [id number] Unknown Unknown Family history Mother Diagnosis Age [...] Unknown Disability 05/31/[address]: 095376585 Has never s moked or chewed tobacco 05/31/[address]: 543039744 Never drinks alco hol 05/31/2018 Has the [...] Condition Codes Effective Dates Condition St atus Essential (primary) hypertension ICD-10: I10 ICD-9: 401.9 10/03/2018 Active Headache ICD-10: R51 ICD-9: 784.0 10/03/2018 Active Type 2 diabetes mellitus wit hout complications ICD-10: E11.9 ICD-9: 250.00 10/03/2018 Active Chronic kidney disease, unspecified ICD- 10: N18.9 ICD-9: 585.9 09/05/2018 Resolved Acute upper respiratory infe ction, unspecified ICD-10: J06.9 ICD-9: 465.9 09/23/2018 Active Adjustment disorder with mix ed anxiety and depressed mood ICD-10: F43.23 ICD-9: 309.28 09/05/2018 Active Encounter for screening, unspecified ICD -10: Z13.9 ICD-9: V82.9 09/05/2018 Active Hypothyroidism, unspecified ICD-10: E03. 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 (NSAID) [...] Fill Instructions cetirizine 10 mg tablet RxNorm: 6415199 1 Tablet(s) PO daily 09/28/20 18 2018 Inactive Guaiasorb DM 10 mg-100 mg/5 mL oral liquid RxNorm: 272644 10 Milliliter(s) PO As needed every 4 hr 09/24/20 18 2018 Inactive Vicks Vaporub 4.7 %-1.2 %-2.6 % topical ointment RxNorm: 1111591 1 Application TOP TID 09/24/20 18 2018 Inactive levmetamfetamine 50 mg nasal inhaler RxNorm: 1 Unit(s) NASAL Q3-4H 09/24/20 18 2017 Inactive sertraline 50 mg tablet RxNorm: 781907 1 Tablet(s) PO daily 09/09/20 18 2018 Inactive Please note dose trazodone 50 mg tablet RxNorm: 261017 1 Tablet(s) PO QHS 09/06/20 18 2018 Inactive sertraline 50 mg tablet RxNorm: 797175 1 Tablet(s) PO daily 09/06/20 18 2017 Inactive amoxicillin 500 mg tablet RxNorm: 331177 1 Tablet(s) PO Q12H 08/31/20 18 2017 Inactive albuterol sulfate 2.5 mg/3 mL (0.083 %) solution for nebulization RxNorm: 049063 1 Vial INH QID 08/10/20 18 2018 Inactive 60/box. Please do not fill early. Please do not auto refill. buspirone 7.5 mg tablet RxNorm: 651479 1 Tablet(s) PO BID 08/09/20 18 2018 Inactive Prozac 10 mg capsule RxNorm: 984241 1 Capsule(s) PO daily 08/09/20 18 2017 Inactive gabapentin 300 mg capsule RxNorm: 990648 1 Capsule(s) PO TID as needed 08/01/20 18 2018 Inactive hydrochlorothiazide 12.5 mg tablet RxNorm: 483714 1 Tablet(s) PO QAM 08/01/20 18 2018 Inactive ranitidine 150 mg tablet RxNorm: 688826 1 Tablet(s) PO BID 08/01/20 18 2018 Inactive Macrobid 100 mg capsule RxNorm: 698611 1 Capsule(s) PO Q12H 06/21/20 18 2017 Inactive Singulair 10 mg tablet RxNorm: 433068 1 Tablet(s) PO daily 06/14/20 18 2018 Inactive Ventolin HFA 90 mcg/actuation aerosol inhaler RxNorm: 4486232 2 Puff(s) INH QID 06/14/20 18 2018 Inactive Singulair 10 mg tablet RxNorm: 570194 1 Tablet(s) PO daily 06/14/20 18 2017 Inactive buspirone 7.5 mg tablet RxNorm: 032929 1 Tablet(s) PO BID 06/14/20 18 2017 Inactive Prozac 10 mg capsule RxNorm: 629909 1 Capsule(s) PO daily 06/14/20 18 2017 Inactive Neilmed Pediatric Sinus Rinse Refill packet RxNorm: 1 Unit Dose NASAL PRN 05/31/20 18 2021 Inactive Aleve 220 mg capsule RxNorm: 8193720 1 Capsule(s) PO BID 05/31/20 18 2018 Inactive diclofenac sodium 75 mg tablet,delayed release RxNorm: 636088 1 Tablet(s) PO BID 05/31/20 18 2017 Inactive lisinopril 2.5 mg tablet RxNorm: 796223 1 Tablet(s) PO daily 05/31/20 18 2017 Inactive metoprolol succinate ER 50 mg tablet,extended release 24 hr RxNorm: 771500 1 Tablet(s) PO daily 05/31/20 18 2017 Inactive levothyroxine 50 mcg tablet RxNorm: 561261 1 Tablet(s) PO daily 05/31/20 18 2017 Inactive TRUEplus Lancets 30 gauge RxNorm: 1 Lancets Miscellaneous QAM 05/31/20 18 2017 Inactive 100/box Ventolin HFA 90 mcg/actuation aerosol inhaler RxNorm: 635299 2 Puff(s) INH QID 05/31/20 18 2017 Inactive ranitidine 150 mg tablet RxNorm: 469494 1 Tablet(s) PO BID 05/31/20 18 2017 Inactive gabapentin 300 mg capsule RxNorm: 972418 1 Capsule(s) PO TID as needed 05/31/20 18 2017 Inactive atorvastatin 20 mg tablet RxNorm: 751065 1 Tablet(s) PO QHS 05/31/20 18 2017 Inactive True Metrix Glucose Test Strip RxNorm: 1 Test Strips Miscellaneous QA 05/31/20 18 2017 Inactive 50/container Calcium 600-D3 Plus 600 mg calcium-800 unit-50 mg tablet RxNorm: 1 Tablet(s) PO daily take an additonal tablet for itching. 05/31/20 18 2017 Inactive hydrochlorothiazide 12.5 mg tablet RxNorm: 950742 1 Tablet(s) PO QAM 05/31/20 18 2017 Inactive Flintstones Complete (iron) 18 mg iron chewable tablet RxNorm: 1 Tablet(s) PO daily 05/31/20 18 2017 Inactive True Metrix Glucose Meter RxNorm: miscellaneous 08/17/20 19 2018 Inactive loperamide 2 mg tablet RxNorm: 358646 oral 09/29/20 19 2018 Inactive d-mannose oral powder RxNorm: PO 18 2021 Inactive Medication Administered No Medication Administered data Vital Signs Date Vital 10/04/2018 Blood Pressure 1: 118/74 Code: 8480-6 BMI: 55.5 Code: 60781-6 Heart Rate 1: 74 bpm Height: 4'11 Code: 8302-2 Respiratory Rate: 18 bpm SpO2: 98% Temperature: 36.9 (C) / 98.4 (F) Weight: 275 lbs Code: 32761-4 Reason For Visit Reason For Visit Effective Dates Notes appropriateness for house call services 10/04/19 19 hypertension 10/04/2018 diabetes mellitus 10/04/2018 headache 10/04/2018 Encounters Encounter Performer Location Location Address Codes Magdi e HOME VISIT EST PATIENT Diagnosis: Type 2 diabetes mellitus without complications[IC D10: E11.9] Diagnosis: Essential (primary) hypertension[ICD 10: I10] Diagnosis: Chronic kidney disease, unspecified[ICD1 0: N18.9] Diagnosis: Headache[ICD10: R51] Rasta Palafox [place] [facility] [address] [place] [address] CPT-4: 94625 10/04/2018 Plan of Care Planned Activity Notes Codes Status Date Visit Plan: E11.9-250.00 Type 2 diabetes mellitus without complications Chronic, stable, diet controlled (FBS 110-120), RBS 106, denies hypoglycemia. 09/06/18: A1c- 5.7 & 05/31/19: A1c- 6.0 POC: no change to POC needed. Will continue to monitor & assess the effectiveness of the current POC I10-401.9 Essential (primary) hypertension Chronic stable, controlled (118/74) for age & DM2 lisinopril 2.5 mg tablet 1 Tablet(s) PO daily metoprolol succinate ER 50 mg tablet,extended release hydrochlorothiazide 12.5 mg tablet 1 Tablet(s) PO QAM POC: will continue to evaluate current status & the effectiveness of the current POC. Will modify POC PRN. N18.9-585.9 Chronic kidney disease, unspecified 09/06/18: GFR- 104, Cr- 0.7, BUN- 8, K- 4.0, Mg & Phos- WNL 05/31/18: GFR-92, Cr- 0.7, BUN-18, K- 4.0 POC: will move this Dx to resolved R51-784.0 Headache 09/21/18: ambulance admission to [facility]. pt stated she had been out of medication for 3 days. Pt states that she didn't get to the natural headache medication: the only thing that works for her. F43.23-309.28 Adjustment disorder with mixed anxiety and [...] see if she can understand the charges. Reduced to mistameaor -3 10/16/18 Court. 10/24/, may have to go to court . 09/20/18: gets sentenced for raping their daughter, probably get sentenced to 6-8 yrs in snf. I'm going to stand right beside him no matter what buspirone 7.5 mg tablet 1 Tablet(s) PO BID 30 days Refills: 1 Qty: 60 [06/14/2018 - 08/12/2018] : will evaluate for increase at next visit Prozac 10 mg capsule 1 Capsule(s) PO daily 30 days Refills: 1 Qty: 30 [06/14/2018 - 08/12/2018] POC: being managed by [facility] BAUDILIO Dowling Seeing counselor at [facility] also J45.909-493.90 Unspecified asthma, uncomplicated R06.2-786.07 Wheezing [...] elevated when sitting, avoid high salt foods. R94.31-794.31 Abnormal electrocardiogram [ECG] [EKG] - Sinus Rhythm - T-abnormality - Possible Anterior ischemia pattern. ABNORMAL 10/04/2018 Patient Education: Patient Medication Summary Completed 10/04/2018 Patient Education: Headaches Completed 10/04/2018 Patient Education: Hypertension Completed 10/04/2018 Patient Education: Diabetes Completed 10/04/2018 Referral: Pending Gynecology Referral Information Referral Processed Referral: Pending Pulmonology Referral Information Referral Processed Referral: Pending Psychiatry Referral Information Referral Initiated Referral: Pending Respiratory Services Referral Information Referral Initiated Referral: Pending Ophthalmology Referral Information Referral Initiated Referral: [facility] WPtel: [place] [address] [place] Fur Coat Sewer placed a call out to the patient to notify her that it has been recommended that she be seen by 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 Patient agreed to be seen, does not have a provider of choice and no transportation issues. Fur Coat Sewer faxed referral and clinical notes to [facility] in [place], [place] near the patient's home. Patient to [...] seen and prefers a provider in the [place] or [place] area. Fur Coat Sewer placed a call out to everyone listed in the area and the only location that was able to accept the patient's insurance was [place] [address] [place] [address] and spoke with Maylin. Maylin asked that the patient's referral, face sheet and visit notes be faxed to . Fur Coat Sewer faxed over requested documents. Patient appointment confirmation letter generated and mailed to her home address. Patient to call to schedule an appointment. Processed Referral: [facility] WPtel: [address] [place] [address] Patient notified that it has been advised that she be seen by Neurology. Patient agreed to be seen and prefers to be seen by a provider in the [place], [place] area. Patient denies any concerns with transportation, and prefers to schedule her own appointment. Fur Coat Sewer placed a call out to [facility] and spoke with Neeraj P: who confirmed that their office is able to accept new patients and the patient's insurance. After confirming the providers fax number, creative services writer faxed over the patient's referral, and [...] Information Referral Initiated Instructions Comment Date . E11250.00 Type 2 diabet es mellitus without complications Chronic, stable, diet controlled (FBS 110-120), RBS 106, denies hypoglycemia. 09/06/18: A1c- 5.7 & 05/31/19: A1c- 6.0 POC: no change to POC needed. Will continue to monitor & assess the effectiveness of the current POC I10-401.9 Essential (primary) hypertension Chronic stable, controlled (118/74) for age & DM2 lisinopril 2.5 mg tablet; 1 Tablet(s) PO daily metoprolol succinate ER 50 mg tablet,extended release hydrochlorothiazide 12.5 mg tablet; 1 Tablet(s) PO QAM POC: will continue to evaluate current status & the effectiveness of the current POC. Will modify POC PRN. N18.9-585.9 Chronic kidney disease, unspecified 09/06/18: GFR- 104, Cr- 0.7, BUN- 8, K- 4.0, Mg & Phos- WNL 05/31/18: GFR-92, Cr- 0.7, BUN-18, K- 4.0 POC: will move this Dx to resolved R51-784.0 Headache 09/21/18: ambulance admission to [facility]. pt stated she had been out of medication for 3 days. Pt states that she didn't get to the natural headache medication: the only thing that works for her. F43.23-309.28 Adjustment disorder with mixed anxiety and [...] see if she can understand the charges. Reduced to mistameaor -3 10/16/18 Court. , may have to go to court . 09/20/18: gets sentenced for raping their daughter, probably get sentenced to 6-8 yrs in snf. I'm going to stand right beside him no matter what buspirone 7.5 mg tablet; 1 Tablet(s) PO BID; 30 days; Refills: 1; Qty: 60 [06/14/2018 - 08/12/2018]; : will evaluate for increase at next visit Prozac 10 mg capsule; 1 Capsule(s) PO daily; 30 days; Refills: 1; Qty: 30 [06/14/2018 - 08/12/2018] POC: being managed by [facility] Nitesh AL Seeing counselor at [facility] also J45.909-493.90 Unspecified asthma, uncomplicated R06.2-786.07 Wheezing [...] elevated when sitting, avoid high salt foods. R94.31-794.31 Abnormal electrocardiogram [ECG] [EKG] - Sinus Rhythm - T-abnormality - Possible Anterior ischemia pattern. ABNORMAL 10/04/2018 Medical Equipment No Medical Equipment data Advance Directives No Advance Directive data
--- OUTSIDE RECORDS SUMMARY | 2018-10-11 20:00 | XMS_ITS | CCD ---
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 Name Role Phone Palomo KING, Anna Primary Care Provider Unav ailable Unavailable Chronic Care Management Unavaila ble Summary Purpose DataExchange Insurance Providers Payer name Policy type / Coverage type Covered libertarian ID Effective Begin Date Effective End Date [employer]TS [facility] [id number] Unknown Unknown Family history Mother Diagnosis Age [...] Unknown Disability 05/31/[address]: 280898882 Has never s moked or chewed tobacco 05/31/[address]: 358625826 Never drinks alco hol 05/31/2018 Has the [...] unspecified ICD-10: R60.9 ICD-9: 782.3 07/11/2018 Active [facility] (current) use of non-steroidal anti-inflammatories (NSAID) ICD-10: [...] Start Date Stop Date Status Fill Instructions buspirone 7.5 mg tablet RxNorm: 867039 1 Tablet(s) PO BID 10/12/192018 Inactive cetirizine 10 mg tablet RxNorm: 2838058 1 Tablet(s) PO daily 09/28/202018 Inactive Guaiasorb DM 10 mg-100 mg/5 mL oral liquid RxNorm: 596621 10 Milliliter(s) PO As needed every 4 hr 09/24/20 18 2018 Inactive Vicks Vaporub 4.7 %-1.2 %-2.6 % topical ointment RxNorm: 3690617 1 Application TOP TID 09/24/20 18 2018 Inactive levmetamfetamine 50 mg nasal inhaler RxNorm: 1 Unit(s) NASAL Q3-4H 09/24/20 18 2017 Inactive sertraline 50 mg tablet RxNorm: 186534 1 Tablet(s) PO daily 09/09/20 18 2018 Inactive Please note dose trazodone 50 mg tablet RxNorm: 493640 1 Tablet(s) PO QHS 09/06/20 18 2018 Inactive sertraline 50 mg tablet RxNorm: 626053 1 Tablet(s) PO daily 09/06/20 18 2017 Inactive amoxicillin 500 mg tablet RxNorm: 216617 1 Tablet(s) PO Q12H 08/31/20 18 2017 Inactive albuterol sulfate 2.5 mg/3 mL (0.083 %) solution for nebulization RxNorm: 581602 1 Vial INH QID 08/10/20 18 2018 Inactive 60/box. Please do not fill early. Please do not auto refill. buspirone 7.5 mg tablet RxNorm: 529965 1 Tablet(s) PO BID 08/09/20 18 2018 Inactive Prozac 10 mg capsule RxNorm: 181376 1 Capsule(s) PO daily 08/09/20 18 2017 Inactive gabapentin 300 mg capsule RxNorm: 667895 1 Capsule(s) PO TID as needed 08/01/20 18 2018 Inactive hydrochlorothiazide 12.5 mg tablet RxNorm: 820203 1 Tablet(s) PO QAM 08/01/20 18 2018 Inactive ranitidine 150 mg tablet RxNorm: 154844 1 Tablet(s) PO BID 08/01/20 18 2018 Inactive Macrobid 100 mg capsule RxNorm: 854917 1 Capsule(s) PO Q12H 06/21/20 18 2017 Inactive Singulair 10 mg tablet RxNorm: 298828 1 Tablet(s) PO daily 06/14/20 18 2018 Inactive Ventolin HFA 90 mcg/actuation aerosol inhaler RxNorm: 0364970 2 Puff(s) INH QID 06/14/20 18 2018 Inactive Singulair 10 mg tablet RxNorm: 650170 1 Tablet(s) PO daily 06/14/20 18 2017 Inactive buspirone 7.5 mg tablet RxNorm: 482447 1 Tablet(s) PO BID 06/14/20 18 2017 Inactive Prozac 10 mg capsule RxNorm: 869973 1 Capsule(s) PO daily 06/14/20 18 2017 Inactive Neilmed Pediatric Sinus Rinse Refill packet RxNorm: 1 Unit Dose NASAL PRN 05/31/20 18 2021 Inactive Aleve 220 mg capsule RxNorm: 9259427 1 Capsule(s) PO BID 05/31/20 18 2018 Inactive diclofenac sodium 75 mg tablet,delayed release RxNorm: 142052 1 Tablet(s) PO BID 05/31/20 18 2017 Inactive lisinopril 2.5 mg tablet RxNorm: 242619 1 Tablet(s) PO daily 05/31/20 18 2017 Inactive metoprolol succinate ER 50 mg tablet,extended release 24 hr RxNorm: 742048 1 Tablet(s) PO daily 05/31/20 18 2017 Inactive levothyroxine 50 mcg tablet RxNorm: 511238 1 Tablet(s) PO daily 05/31/20 18 2017 Inactive TRUEplus Lancets 30 gauge RxNorm: 1 Lancets Miscellaneous QAM 05/31/20 18 2017 Inactive 100/box Ventolin HFA 90 mcg/actuation aerosol inhaler RxNorm: 766024 2 Puff(s) INH QID 05/31/20 18 2017 Inactive ranitidine 150 mg tablet RxNorm: 701435 1 Tablet(s) PO BID 05/31/20 18 2017 Inactive gabapentin 300 mg capsule RxNorm: 576553 1 Capsule(s) PO TID as needed 05/31/20 18 2017 Inactive atorvastatin 20 mg tablet RxNorm: 973545 1 Tablet(s) PO QHS 05/31/20 18 2017 Inactive True Metrix Glucose Test Strip RxNorm: 1 Test Strips Miscellaneous [facility] 05/31/20 18 2017 Inactive 50/container Calcium 600-D3 Plus 600 mg calcium-800 unit-50 mg tablet RxNorm: 1 Tablet(s) PO daily take an additonal tablet for itching. 05/31/20 18 2017 Inactive hydrochlorothiazide 12.5 mg tablet RxNorm: 865346 1 Tablet(s) PO QAM 05/31/20 18 2017 Inactive Flintstones Complete (iron) 18 mg iron chewable tablet RxNorm: 1 Tablet(s) PO daily 05/31/20 18 2017 Inactive True Metrix Glucose Meter RxNorm: miscellaneous 08/17/20 19 2018 Inactive loperamide 2 mg tablet RxNorm: 825367 oral 09/29/20 19 2018 Inactive d-mannose oral [...] ogy Referral Information Referral Initiated Referral: [facility] WPtel: [address] [place] [address] [place] Oracle Programmer Analyst placed a call out to the patient to notify her that it has been recommended that she be seen by 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 Patient agreed to be seen, does not have a provider of choice and no transportation issues. Oracle Programmer Analyst faxed referral and clinical notes to [facility] in [place], [place] near the patient's home. Patient to [...] seen and prefers a provider in the [place] or [place] area. Oracle Programmer Analyst placed a call out to everyone listed in the area and the only location that was able to accept the patient's insurance was [facility] [place] [address] and spoke with Maylin. Maylin asked that the patient's referral, face sheet and visit notes be faxed to . Oracle Programmer Analyst faxed over requested documents. Patient appointment confirmation letter generated and mailed to her home address. Patient to call to schedule an appointment. Processed Referral: [facility] WPtel: [address] [place] [address] Patient notified that it has been advised that she be seen by Neurology. Patient agreed to be seen and prefers to be seen by a provider in the [place], [place] area. Patient denies any concerns with transportation, and prefers to schedule her own appointment. Oracle Programmer Analyst placed a call out to [facility] and spoke with Neeraj P: who confirmed that their office is able to accept new patients and the patient's insurance. After confirming the providers fax number, verse writer faxed over the patient's referral, and [...]
--- OUTSIDE RECORDS SUMMARY | 2018-10-20 20:00 | XMS_ITS | CCD ---
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 Sr. Manager Name Role Phone Palomo KING, Anna Primary Care Provider Unav ailable Unavailable Chronic Care Management Unavaila ble Summary Purpose DataExchange Insurance Providers Payer name Policy type / Coverage type Covered republican ID Effective Begin Date Effective End Date [employer] [facility] [id number] Unknown Unknown Family history Mother Diagnosis Age [...] Unknown Disability 05/31/[address]: 992187198 Has never s moked or chewed tobacco 05/31/[address]: 361478158 Never drinks alco hol 05/31/2018 Has the [...] Condition Codes Effective Dates Condition St atus Polyneuropathy, unspecified ICD-10: G62. 9 ICD-9: 356.9 05/30/2018 Active Essential (primary) hypertension ICD-10: I10 [...] unspecified ICD-10: R60.9 ICD-9: 782.3 07/11/2018 Active long term (current) use of non-steroidal anti-inflammatories (NSAID) ICD-10: Z79.1 ICD-9: V58.64 06/13/2018 Active Abnormal electrocardiogram [ ECG] [EKG] ICD-10: R94.31 ICD-9: 794.31 05/30/2018 Active Body mass index (BMI) 50-59. 9 , adult ICD-10: Z68.43 ICD-9: V85.43 05/30/2018 Active Hyperlipidemia, unspecified ICD-10: E78. 5 ICD-9: 272.4 05/30/2018 Active Medications Medication Codes Instructions Start Date Stop Date Status Fill Instructions ranitidine 150 mg tablet RxNorm: 909428 1 Tablet(s) PO BID 10/21/192018 Inactive This refill negates all other refills of this medication albuterol sulfate 2.5 mg/3 mL (0.083 %) solution for nebulization RxNorm: 801686 1 Vial INH QID 10/21/192018 Inactive 60/box. This refill negates all other refills of this medication. Please do not fill early. Please do not auto refill. levmetamfetamine 50 mg nasal inhaler RxNorm: 1 Unit(s) NASAL Q3-4H Do not use more than every 3 hours or 8 times/24hours 10/21/192018 Inactive Please do not auto refill. This refill negates all other refills of this medication gabapentin 300 mg capsule RxNorm: 498419 1 Capsule(s) PO TID as needed 10/21/192018 Inactive atorvastatin 20 mg tablet RxNorm: 639503 1 Tablet(s) PO QHS 10/21/192018 Inactive This refill negates all other refills of this medication trazodone 50 mg tablet RxNorm: 646647 1 Tablet(s) PO QHS 10/21/192018 Inactive This refill negates all other refills of this medication Ventolin HFA 90 mcg/actuation aerosol inhaler RxNorm: 887521 2 Puff(s) INH QID 10/21/192018 Inactive Please do not fill early. Please do not auto refill. This refill negates all other refills of this medication Calcium 600-D3 Plus 600 mg calcium-800 unit-50 mg tablet RxNorm: 1 Tablet(s) PO daily take an additonal tablet for itching. 10/21/192018 Inactive This refill negates all other refills of this medication Singulair 10 mg tablet RxNorm: 685229 1 Tablet(s) PO daily 10/21/192018 Inactive This refill negates all other refills of this medication buspirone 7.5 mg tablet RxNorm: 447258 1 Tablet(s) PO BID 10/21/192018 Inactive This refill negates all other refills of this medication diclofenac sodium 75 mg tablet,delayed release RxNorm: 462330 1 Tablet(s) PO BID 10/21/19 19 2018 Inactive This refill negates all other refills of this medication hydrochlorothiazide 12.5 mg tablet RxNorm: 412408 1 Tablet(s) PO QAM 10/21/19 2018 Inactive metoprolol succinate ER 50 mg tablet,extended release 24 hr RxNorm: 480995 1 Tablet(s) PO daily 10/21/19 19 2018 Inactive This refill negates all other refills of this medication levothyroxine 50 mcg tablet RxNorm: 366610 1 Tablet(s) PO daily 10/21/19 19 2018 Inactive This refill negates all other refills of this medication cetirizine 10 mg tablet RxNorm: 5056487 1 Tablet(s) PO daily 10/21/192018 Inactive This refill negates all other refills of this medication. Please do not auto refill Flintstones Complete (iron) 18 mg iron chewable tablet RxNorm: 1 Tablet(s) PO daily 10/21/19 19 2018 Inactive This refill negates all other refills of this medication buspirone 7.5 mg tablet RxNorm: 737119 1 Tablet(s) PO BID 10/12/19 19 2018 Inactive cetirizine 10 mg tablet RxNorm: 4546575 1 Tablet(s) PO daily 09/28/20 18 2018 Inactive Guaiasorb DM 10 mg-100 mg/5 mL oral liquid RxNorm: 795716 10 Milliliter(s) PO As needed every 4 hr 09/24/20 18 2018 Inactive Vicks Vaporub 4.7 %-1.2 %-2.6 % topical ointment RxNorm: 2639606 1 Application TOP TID 09/24/20 18 2018 Inactive levmetamfetamine 50 mg nasal inhaler RxNorm: 1 Unit(s) NASAL Q3-4H 09/24/20 18 2017 Inactive sertraline 50 mg tablet RxNorm: 878460 1 Tablet(s) PO daily 09/09/20 18 2018 Inactive Please note dose trazodone 50 mg tablet RxNorm: 650711 1 Tablet(s) PO QHS 09/06/20 18 2018 Inactive sertraline 50 mg tablet RxNorm: 375968 1 Tablet(s) PO daily 09/06/20 18 2017 Inactive amoxicillin 500 mg tablet RxNorm: 367409 1 Tablet(s) PO Q12H 08/31/20 18 2017 Inactive albuterol sulfate 2.5 mg/3 mL (0.083 %) solution for nebulization RxNorm: 709644 1 Vial INH QID 08/10/20 18 2018 Inactive 60/box. Please do not fill early. Please do not auto refill. Prozac 10 mg capsule RxNorm: 316535 1 Capsule(s) PO daily 08/09/20 18 2017 Inactive buspirone 7.5 mg tablet RxNorm: 665801 1 Tablet(s) PO BID 08/09/20 18 2018 Inactive gabapentin 300 mg capsule RxNorm: 832808 1 Capsule(s) PO TID as needed 08/01/20 18 2018 Inactive hydrochlorothiazide 12.5 mg tablet RxNorm: 473132 1 Tablet(s) PO QAM 08/01/20 18 2018 Inactive ranitidine 150 mg tablet RxNorm: 860982 1 Tablet(s) PO BID 08/01/20 18 2018 Inactive Macrobid 100 mg capsule RxNorm: 342990 1 Capsule(s) PO Q12H 06/21/20 18 2017 Inactive Singulair 10 mg tablet RxNorm: 149563 1 Tablet(s) PO daily 06/14/20 18 2018 Inactive Ventolin HFA 90 mcg/actuation aerosol inhaler RxNorm: 6036580 2 Puff(s) INH QID 06/14/20 18 2018 Inactive Singulair 10 mg tablet RxNorm: 553684 1 Tablet(s) PO daily 06/14/20 18 2017 Inactive buspirone 7.5 mg tablet RxNorm: 538136 1 Tablet(s) PO BID 06/14/20 18 2017 Inactive Prozac 10 mg capsule RxNorm: 023603 1 Capsule(s) PO daily 06/14/20 18 2017 Inactive Neilmed Pediatric Sinus Rinse Refill packet RxNorm: 1 Unit Dose NASAL PRN 05/31/20 18 2021 Inactive Aleve 220 mg capsule RxNorm: 8330556 1 Capsule(s) PO BID 05/31/20 18 2018 Inactive diclofenac sodium 75 mg tablet,delayed release RxNorm: 120112 1 Tablet(s) PO BID 05/31/20 18 2017 Inactive lisinopril 2.5 mg tablet RxNorm: 792709 1 Tablet(s) PO daily 05/31/20 18 2017 Inactive metoprolol succinate ER 50 mg tablet,extended release 24 hr RxNorm: 335511 1 Tablet(s) PO daily 05/31/20 18 2017 Inactive levothyroxine 50 mcg tablet RxNorm: 464214 1 Tablet(s) PO daily 05/31/20 18 2017 Inactive TRUEplus Lancets 30 gauge RxNorm: 1 Lancets Miscellaneous QAM 05/31/20 18 2017 Inactive 100/box Ventolin HFA 90 mcg/actuation aerosol inhaler RxNorm: 097362 2 Puff(s) INH QID 05/31/20 18 2017 Inactive ranitidine 150 mg tablet RxNorm: 385229 1 Tablet(s) PO BID 05/31/20 18 2017 Inactive gabapentin 300 mg capsule RxNorm: 797031 1 Capsule(s) PO TID as needed 05/31/20 18 2017 Inactive atorvastatin 20 mg tablet RxNorm: 049000 1 Tablet(s) PO QHS 05/31/20 18 2017 Inactive True Metrix Glucose Test Strip RxNorm: 1 Test Strips Miscellaneous QAM 05/31/20 18 2017 Inactive 50/container Calcium 600-D3 Plus 600 mg calcium-800 unit-50 mg tablet RxNorm: 1 Tablet(s) PO daily take an additonal tablet for itching. 05/31/20 18 2017 Inactive hydrochlorothiazide 12.5 mg tablet RxNorm: 395370 1 Tablet(s) PO QAM 05/31/20 18 2017 Inactive Flintstones Complete (iron) 18 mg iron chewable tablet RxNorm: 1 Tablet(s) PO daily 05/31/20 18 2017 Inactive True Metrix Glucose Meter RxNorm: miscellaneous 08/17/20 19 2018 Inactive loperamide 2 mg tablet RxNorm: 725143 oral 09/29/20 19 2018 Inactive d-mannose oral [...] Ophthalmol ogy Referral Information Referral Initiated Referral: [facility] WPtel: [address] [place] [address] Alumni Relations Officer placed a call out to the patient to notify her that it has been recommended that she be seen by 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 Patient agreed to be seen, does not have a provider of choice and no transportation issues. Alumni Relations Officer faxed referral and clinical notes to [facility] in [place], [place] near the patient's home. Patient to [...] seen and prefers a provider in the [place] or [facility]. Alumni Relations Officer placed a call out to everyone listed in the area and the only location that was able to accept the patient's insurance was [place] [address] [place] [address] and spoke with Maylni. Maylin asked that the patient's referral, face sheet and visit notes be faxed to . Alumni Relations Officer faxed over requested documents. Patient appointment confirmation letter generated and mailed to her home address. Patient to call to schedule an appointment. Processed Referral: [facility] WPtel: [address] [place] [address] [place] [address] Patient notified that it has been advised that she be seen by Neurology. Patient agreed to be seen and prefers to be seen by a provider in the [place], [place] area. Patient denies any concerns with transportation, and prefers to schedule her own appointment. Alumni Relations Officer placed a call out to [facility] and spoke with Neeraj P: who confirmed that their office is able to accept new patients and the patient's insurance. After confirming the providers fax number, medical technical writer faxed over the patient's referral, and [...]
--- OUTSIDE RECORDS SUMMARY | 2018-10-20 20:00 | XMS_ITS | CCD ---
Author Name Ursula Palafox NP y Address [address] [facility] [address] [place] [address] Phone Organization [facility] Phone Care Team Providers Care Primary Care Nurse Name Role Phone Palomo KING, Anna Primary Care Provider Unav ailable Unavailable Chronic Care Management Unavaila ble Summary Purpose DataExchange Insurance Providers Payer name Policy type / Coverage type Covered democrat ID Effective Begin Date Effective End Date SUKI BUTTS [facility] [id number] Unknown Unknown Family history Mother Diagnosis Age [...] Unknown Disability 05/31/[address]: 914781033 Has never s moked or chewed tobacco 05/31/[address]: 918887849 Never drinks alco hol 05/31/2018 Has the [...] unspecified ICD-10: R60.9 ICD-9: 782.3 07/11/2018 Active 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 9 , adult ICD-10: Z68.43 ICD-9: V85.43 05/30/2018 Active Hyperlipidemia, unspecified ICD-10: E78. 5 ICD-9: 272.4 05/30/2018 Active Medications Medication Codes Instructions Start Date Stop Date Status Fill Instructions ranitidine 150 mg tablet RxNorm: 049977 1 Tablet(s) PO BID 10/21/192018 Inactive This refill negates all other refills of this medication albuterol sulfate 2.5 mg/3 mL (0.083 %) solution for nebulization RxNorm: 630487 1 Vial INH QID 10/21/19 19 2018 Inactive 60/box. This refill negates all other refills of this medication. Please do not fill early. Please do not auto refill. levmetamfetamine 50 mg nasal inhaler RxNorm: 1 Unit(s) NASAL Q3-4H Do not use more than every 3 hours or 8 times/24hours 10/21/192018 Inactive Please do not auto refill. This refill negates all other refills of this medication gabapentin 300 mg capsule RxNorm: 383253 1 Capsule(s) PO TID as needed 10/21/192018 Inactive atorvastatin 20 mg tablet RxNorm: 437354 1 Tablet(s) PO QHS 10/21/192018 Inactive This refill negates all other refills of this medication trazodone 50 mg tablet RxNorm: 339853 1 Tablet(s) PO QHS 10/21/192018 Inactive This refill negates all other refills of this medication Ventolin HFA 90 mcg/actuation aerosol inhaler RxNorm: 995589 2 Puff(s) INH QID 10/21/192018 Inactive Please do not fill early. Please do not auto refill. This refill negates all other refills of this medication Calcium 600-D3 Plus 600 mg calcium-800 unit-50 mg tablet RxNorm: 1 Tablet(s) PO daily take an additonal tablet for itching. 10/21/192018 Inactive This refill negates all other refills of this medication Singulair 10 mg tablet RxNorm: 108643 1 Tablet(s) PO daily 10/21/192018 Inactive This refill negates all other refills of this medication buspirone 7.5 mg tablet RxNorm: 517992 1 Tablet(s) PO BID 10/21/192018 Inactive This refill negates all other refills of this medication diclofenac sodium 75 mg tablet,delayed release RxNorm: 848172 1 Tablet(s) PO BID 10/21/19 19 2018 Inactive This refill negates all other refills of this medication hydrochlorothiazide 12.5 mg tablet RxNorm: 179542 1 Tablet(s) PO QAM 10/21/19 19 2018 Inactive metoprolol succinate ER 50 mg tablet,extended release 24 hr RxNorm: 990197 1 Tablet(s) PO daily 10/21/19 19 2018 Inactive This refill negates all other refills of this medication levothyroxine 50 mcg tablet RxNorm: 298669 1 Tablet(s) PO daily 10/21/192018 Inactive This refill negates all other refills of this medication cetirizine 10 mg tablet RxNorm: 1531103 1 Tablet(s) PO daily 10/21/192018 Inactive This refill negates all other refills of this medication. Please do not auto refill Flintstones Complete (iron) 18 mg iron chewable tablet RxNorm: 1 Tablet(s) PO daily 10/21/192018 Inactive This refill negates all other refills of this medication buspirone 7.5 mg tablet RxNorm: 848267 1 Tablet(s) PO BID 10/12/192018 Inactive cetirizine 10 mg tablet RxNorm: 0976213 1 Tablet(s) PO daily 09/28/202018 Inactive Guaiasorb DM 10 mg-100 mg/5 mL oral liquid RxNorm: 848297 10 Milliliter(s) PO As needed every 4 hr 09/24/20 18 2018 Inactive Vicks Vaporub 4.7 %-1.2 %-2.6 % topical ointment RxNorm: 9955478 1 Application TOP TID 09/24/202018 Inactive levmetamfetamine 50 mg nasal inhaler RxNorm: 1 Unit(s) NASAL Q3-4H 09/24/20 18 2017 Inactive sertraline 50 mg tablet RxNorm: 013189 1 Tablet(s) PO daily 09/09/20 18 2018 Inactive Please note dose trazodone 50 mg tablet RxNorm: 651793 1 Tablet(s) PO QHS 09/06/20 18 2018 Inactive sertraline 50 mg tablet RxNorm: 340526 1 Tablet(s) PO daily 09/06/20 18 2017 Inactive amoxicillin 500 mg tablet RxNorm: 754380 1 Tablet(s) PO Q12H 08/31/20 18 2017 Inactive albuterol sulfate 2.5 mg/3 mL (0.083 %) solution for nebulization RxNorm: 199409 1 Vial INH QID 08/10/20 18 2018 Inactive 60/box. Please do not fill early. Please do not auto refill. Prozac 10 mg capsule RxNorm: 595697 1 Capsule(s) PO daily 08/09/20 18 2017 Inactive buspirone 7.5 mg tablet RxNorm: 562122 1 Tablet(s) PO BID 08/09/20 18 2018 Inactive gabapentin 300 mg capsule RxNorm: 527995 1 Capsule(s) PO TID as needed 08/01/20 18 2018 Inactive hydrochlorothiazide 12.5 mg tablet RxNorm: 589531 1 Tablet(s) PO QAM 08/01/20 18 2018 Inactive ranitidine 150 mg tablet RxNorm: 186216 1 Tablet(s) PO BID 08/01/20 18 2018 Inactive Macrobid 100 mg capsule RxNorm: 145097 1 Capsule(s) PO Q12H 06/21/20 18 2017 Inactive Singulair 10 mg tablet RxNorm: 283566 1 Tablet(s) PO daily 06/14/20 18 2018 Inactive Ventolin HFA 90 mcg/actuation aerosol inhaler RxNorm: 1748385 2 Puff(s) INH QID 06/14/20 18 2018 Inactive Singulair 10 mg tablet RxNorm: 304956 1 Tablet(s) PO daily 06/14/20 18 2017 Inactive buspirone 7.5 mg tablet RxNorm: 856002 1 Tablet(s) PO BID 06/14/20 18 2017 Inactive Prozac 10 mg capsule RxNorm: 872846 1 Capsule(s) PO daily 06/14/20 18 2017 Inactive Neilmed Pediatric Sinus Rinse Refill packet RxNorm: 1 Unit Dose NASAL PRN 05/31/20 18 2021 Inactive Aleve 220 mg capsule RxNorm: 9013517 1 Capsule(s) PO BID 05/31/20 18 2018 Inactive diclofenac sodium 75 mg tablet,delayed release RxNorm: 787014 1 Tablet(s) PO BID 05/31/20 18 2017 Inactive lisinopril 2.5 mg tablet RxNorm: 725357 1 Tablet(s) PO daily 05/31/20 18 2017 Inactive metoprolol succinate ER 50 mg tablet,extended release 24 hr RxNorm: 779158 1 Tablet(s) PO daily 05/31/20 18 2017 Inactive levothyroxine 50 mcg tablet RxNorm: 806808 1 Tablet(s) PO daily 05/31/20 18 2017 Inactive TRUEplus Lancets 30 gauge RxNorm: 1 Lancets Miscellaneous QAM 05/31/20 18 2017 Inactive 100/box Ventolin HFA 90 mcg/actuation aerosol inhaler RxNorm: 703932 2 Puff(s) INH QID 05/31/20 18 2017 Inactive ranitidine 150 mg tablet RxNorm: 913617 1 Tablet(s) PO BID 05/31/20 18 2017 Inactive gabapentin 300 mg capsule RxNorm: 800989 1 Capsule(s) PO TID as needed 05/31/20 18 2017 Inactive atorvastatin 20 mg tablet RxNorm: 170845 1 Tablet(s) PO QHS 05/31/20 18 2017 Inactive True Metrix Glucose Test Strip RxNorm: 1 Test Strips Miscellaneous QAM 05/31/20 18 2017 Inactive 50/container Calcium 600-D3 Plus 600 mg calcium-800 unit-50 mg tablet RxNorm: 1 Tablet(s) PO daily take an additonal tablet for itching. 05/31/20 18 2017 Inactive hydrochlorothiazide 12.5 mg tablet RxNorm: 949026 1 Tablet(s) PO QAM 05/31/20 18 2017 Inactive César Complete (iron) 18 mg iron chewable tablet RxNorm: 1 Tablet(s) PO daily 05/31/20 18 2017 Inactive True Metrix Glucose Meter RxNorm: miscellaneous 08/17/20 19 2018 Inactive loperamide 2 mg tablet RxNorm: 047381 oral 09/29/20 19 2018 Inactive d-mannose oral powder RxNorm: PO 18 2021 Inactive Medication Administered No Medication Administered data Reason For Visit No Reason For Visit data Plan of Care Planned Activity Notes Codes Status Date Patient Education: Patient Medication Summary Completed 10/21/2018 Referral: Pending Gynecology Referral Information Referral Processed Referral: Pending Pulmonolog y Referral Information Referral Processed Referral: Pending Psychiatry Referral Information Referral Initiated Referral: Pending Respirator y Services Referral Information Referral Initiated Referral: Pending Ophthalmology Referral Information Referral Initiated Referral: [facility] WPtel: [address] [place] [address] Satellite Tv Technician Installer placed a call out to the patient to notify her that it has been recommended that she be seen by 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 Patient agreed to be seen, does not have a provider of choice and no transportation issues. Satellite Tv Technician Installer faxed referral and clinical notes to [facility] in [place], [place] near the patient's home. Patient to [...] seen and prefers a provider in the [place] or [place] area. Satellite Tv Technician Installer placed a call out to everyone listed in the area and the only location that was able to accept the patient's insurance was [place] [address] [place] [address] and spoke with Maylin. Maylin asked that the patient's referral, face sheet and visit notes be faxed to . Satellite Tv Technician Installer faxed over requested documents. Patient appointment confirmation letter generated and mailed to her home address. Patient to call to schedule an appointment. Processed Referral: [facility] Neurolog y WPtel: [address] [facility] [address] [place] [address] Patient notified that it has been advised that she be seen by Neurology. Patient agreed to be seen and prefers to be seen by a provider in the [place], [place] area. Patient denies any concerns with transportation, and prefers to schedule her own appointment. Satellite Tv Technician Installer placed a call out to [facility] and spoke with Neeraj P: who confirmed that their office is able to accept new patients and the patient's insurance. After confirming the providers fax number, sql report writer faxed over the patient's referral, and [...]
--- OUTSIDE RECORDS SUMMARY | 2018-12-02 20:00 | XMS_ITS | CCD ---
Author Name Ursula Palafox NP y Address [address] [facility] [facility] [place] [address] [place] [address] Phone Organization [facility] Phone Care Team Providers Care Lehr Attendant Name Role Phone Palomo KING, Anna Primary Care Provider Unav ailable Unavailable Chronic Care Management Unavaila ble Summary Purpose DataExchange Insurance Providers Payer name Policy type / Coverage type Covered democrat ID Effective Begin Date Effective End Date SUKI MAYO [id number] Unknown Unknown Family history Mother Diagnosis Age [...] Unknown Disability 05/31/[address]: 500180631 Has never s moked or chewed tobacco 05/31/[address]: 270698703 Never drinks alco hol 05/31/2018 Has the [...] mood ICD-10: F43.23 ICD-9: 309.28 09/05/2018 Active Chest pain, unspecified ICD-10: R07.9 ICD-9: 786.50 11/29/2018 Active Edema, unspecified ICD-10: R60.9 ICD-9: 782.3 07/11/2018 Active Essential (primary) hypertension ICD-10: I10 ICD-9: 401.9 10/03/2018 Active Headache ICD-10: R51 ICD-9: 784.0 10/03/2018 Active Post-traumatic stress disord er, unspecified ICD-10: F43.10 ICD-9: 309.81 09/05/2018 Active Type 2 diabetes mellitus wit hout complications ICD-10: E11.9 ICD-9: 250.00 10/03/2018 Active Unspecified asthma, uncomplicated ICD-10 : J45.909 ICD-9: 493.90 08/08/2018 Active Wheezing ICD-10: R06.2 ICD-9: 786.07 08/08/2018 Active Acute upper respiratory infe ction, unspecified ICD-10: J06.9 ICD-9: 465.9 09/23/2018 Resolved Chronic kidney disease, unspecified ICD- 10: N18.9 ICD-9: 585.9 10/03/2018 Resolved Polyneuropathy, unspecified ICD-10: G62. 9 ICD-9: 356.9 05/30/2018 Active Encounter for screening, unspecified ICD -10: Z13.9 ICD-9: V82.9 09/05/2018 Active Hypothyroidism, unspecified ICD-10: E03. 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 9 , adult ICD-10: Z68.43 ICD-9: V85.43 05/30/2018 Active Hyperlipidemia, unspecified ICD-10: E78. 5 ICD-9: 272.4 05/30/2018 Active Medications Medication Codes Instructions Start Date Stop Date Status Fill Instructions ranitidine 150 mg tablet RxNorm: 882650 1 Tablet(s) PO BID 10/21/19 19 2018 Inactive This refill negates all other refills of this medication albuterol sulfate 2.5 mg/3 mL (0.083 %) solution for nebulization RxNorm: 168510 1 Vial INH QID 10/21/19 19 2018 [...] this medication gabapentin 300 mg capsule RxNorm: 601159 1 Capsule(s) PO TID as needed 10/21/19 19 2018 Inactive atorvastatin 20 mg tablet RxNorm: 700517 1 Tablet(s) PO QHS 10/21/192018 Inactive This refill negates all other refills of this medication Ventolin HFA 90 mcg/actuation aerosol inhaler RxNorm: 040995 2 Puff(s) INH QID 10/21/19 19 2018 Inactive Please do not fill early. Please do not auto refill. This refill negates all other refills of this medication Calcium 600-D3 Plus 600 mg calcium-800 unit-50 mg tablet RxNorm: 1 Tablet(s) PO daily take an additonal tablet for itching. 10/21/192018 Inactive This refill negates all other refills of this medication Singulair 10 mg tablet RxNorm: 839414 1 Tablet(s) PO daily 10/21/192018 Inactive This refill negates all other refills of this medication buspirone 7.5 mg tablet RxNorm: 252229 1 Tablet(s) PO BID 10/21/19 19 2018 Inactive This refill negates all other refills of this medication diclofenac sodium 75 mg tablet,delayed release RxNorm: 472254 1 Tablet(s) PO BID 10/21/19 19 2018 Inactive This refill negates all other refills of this medication hydrochlorothiazide 12.5 mg tablet RxNorm: 069845 1 Tablet(s) PO QAM 10/21/19 19 2018 Inactive metoprolol succinate ER 50 mg tablet,extended release 24 hr RxNorm: 368614 1 Tablet(s) PO daily 10/21/19 19 2018 Inactive This refill negates all other refills of this medication levothyroxine 50 mcg tablet RxNorm: 670585 1 Tablet(s) PO daily 10/21/19 19 2018 Inactive This refill negates all other refills of this medication cetirizine 10 mg tablet RxNorm: 7490170 1 Tablet(s) PO daily 10/21/19 19 2018 Inactive This refill negates all other refills of this medication. Please do not auto refill Flintstones Complete (iron) 18 mg iron chewable tablet RxNorm: 1 Tablet(s) PO daily 10/21/19 19 2018 Inactive This refill negates all other refills of this medication trazodone 50 mg tablet RxNorm: 019534 1 Tablet(s) PO QHS 10/21/19 19 2018 Inactive This refill negates all other refills of this medication buspirone 7.5 mg tablet RxNorm: 593905 1 Tablet(s) PO BID 10/12/19 19 2018 Inactive cetirizine 10 mg tablet RxNorm: 0722684 1 Tablet(s) PO daily 09/28/202018 Inactive Guaiasorb DM 10 mg-100 mg/5 mL oral liquid RxNorm: 423852 10 Milliliter(s) PO As needed every 4 hr 09/24/20 18 2018 Inactive Vicks Vaporub 4.7 %-1.2 %-2.6 % topical ointment RxNorm: 8637055 1 Application TOP TID 09/24/20 18 2018 Inactive levmetamfetamine 50 mg nasal inhaler RxNorm: 1 Unit(s) NASAL Q3-4H 09/24/20 18 2017 Inactive sertraline 50 mg tablet RxNorm: 666568 1 Tablet(s) PO daily 09/09/20 18 2018 Inactive Please note dose trazodone 50 mg tablet RxNorm: 550103 1 Tablet(s) PO QHS 09/06/20 18 2018 Inactive sertraline 50 mg tablet RxNorm: 560040 1 Tablet(s) PO daily 09/06/20 18 2017 Inactive amoxicillin 500 mg tablet RxNorm: 752070 1 Tablet(s) PO Q12H 08/31/20 18 2017 Inactive albuterol sulfate 2.5 mg/3 mL (0.083 %) solution for nebulization RxNorm: 700420 1 Vial INH QID 08/10/20 18 2018 Inactive 60/box. Please do not fill early. Please do not auto refill. Prozac 10 mg capsule RxNorm: 364336 1 Capsule(s) PO daily 08/09/20 18 2017 Inactive buspirone 7.5 mg tablet RxNorm: 871143 1 Tablet(s) PO BID 08/09/20 18 2018 Inactive gabapentin 300 mg capsule RxNorm: 018483 1 Capsule(s) PO TID as needed 08/01/20 18 2018 Inactive hydrochlorothiazide 12.5 mg tablet RxNorm: 808205 1 Tablet(s) PO QAM 08/01/20 18 2018 Inactive ranitidine 150 mg tablet RxNorm: 750237 1 Tablet(s) PO BID 08/01/20 18 2018 Inactive Macrobid 100 mg capsule RxNorm: 756527 1 Capsule(s) PO Q12H 06/21/20 18 2017 Inactive Singulair 10 mg tablet RxNorm: 118616 1 Tablet(s) PO daily 06/14/20 18 2018 Inactive Ventolin HFA 90 mcg/actuation aerosol inhaler RxNorm: 2314830 2 Puff(s) INH QID 06/14/20 18 2018 Inactive Singulair 10 mg tablet RxNorm: 610385 1 Tablet(s) PO daily 06/14/20 18 2017 Inactive buspirone 7.5 mg tablet RxNorm: 253985 1 Tablet(s) PO BID 06/14/20 18 2017 Inactive Prozac 10 mg capsule RxNorm: 223723 1 Capsule(s) PO daily 06/14/20 18 2017 Inactive Neilmed Pediatric Sinus Rinse Refill packet RxNorm: 1 Unit Dose NASAL PRN 05/31/20 18 2021 Inactive Aleve 220 mg capsule RxNorm: 7541390 1 Capsule(s) PO BID 05/31/20 18 2018 Inactive diclofenac sodium 75 mg tablet,delayed release RxNorm: 644784 1 Tablet(s) PO BID 05/31/20 18 2017 Inactive lisinopril 2.5 mg tablet RxNorm: 360937 1 Tablet(s) PO daily 05/31/20 18 2017 Inactive metoprolol succinate ER 50 mg tablet,extended release 24 hr RxNorm: 255223 1 Tablet(s) PO daily 05/31/20 18 2017 Inactive levothyroxine 50 mcg tablet RxNorm: 582775 1 Tablet(s) PO daily 05/31/20 18 2017 Inactive TRUEplus Lancets 30 gauge RxNorm: 1 Lancets Miscellaneous QAM 05/31/20 18 2017 Inactive 100/box Ventolin HFA 90 mcg/actuation aerosol inhaler RxNorm: 465075 2 Puff(s) INH QID 05/31/20 18 2017 Inactive ranitidine 150 mg tablet RxNorm: 002160 1 Tablet(s) PO BID 05/31/20 18 2017 Inactive gabapentin 300 mg capsule RxNorm: 763130 1 Capsule(s) PO TID as needed 05/31/20 18 2017 Inactive atorvastatin 20 mg tablet RxNorm: 731348 1 Tablet(s) PO QHS 05/31/20 18 2017 Inactive True Metrix Glucose Test Strip RxNorm: 1 Test Strips Miscellaneous QAM 05/31/20 18 2017 Inactive 50/container Calcium 600-D3 Plus 600 mg calcium-800 unit-50 mg tablet RxNorm: 1 Tablet(s) PO daily take an additonal tablet for itching. 05/31/20 18 2017 Inactive hydrochlorothiazide 12.5 mg tablet RxNorm: 594122 1 Tablet(s) PO QAM 05/31/20 18 2017 Inactive Flintstones Complete (iron) 18 mg iron chewable tablet RxNorm: 1 Tablet(s) PO daily 05/31/20 18 2017 Inactive True Metrix Glucose Meter RxNorm: miscellaneous 08/17/20 19 2018 Inactive loperamide 2 mg tablet RxNorm: 224256 oral 09/29/20 19 2018 Inactive d-mannose oral powder RxNorm: PO 18 2021 Inactive Medication Administered No Medication Administered data Vital Signs Date Vital 11/29/2018 Blood Pressure 1: 128/80 Code: 8480-6 BMI: 52.5 Code: 45204-0 Heart Rate 1: 55 bpm Height: 4'11 Code: 8302-2 Respiratory Rate: 18 bpm SpO2: 97% Temperature: 36.4 (C) / 97.5 (F) Weight: 260 lbs Code: 80582-1 Reason For Visit Reason For Visit Effective Dates Notes appropriateness for house call services 11/29/19 19 hypertension 11/29/2018 diabetes mellitus 11/29/2018 headache 11/29/2018 Encounters Encounter Performer Location Location Address Codes Date HOME VISIT EST PATIENT Diagnosis: Type 2 diabetes mellitus without complications[ICD10: E11.9] Diagnosis: Essential (primary) hypertension[ICD10: I10] Diagnosis: Unspecified asthma, uncomplicated[ICD10: J45.909] Diagnosis: Wheezing[ICD10: R06.2] Diagnosis: Chest pain, unspecified[ICD10: R07.9] Diagnosis: Abnormal electrocardiogram [ECG] [EKG][ICD10: R94.31] Diagnosis: Adjustment disorder with mixed anxiety and depressed mood[ICD10: F43.23] Diagnosis: Post-traumatic stress disorder, unspecified[ICD10: F43.10] [facility] [id number] [place] [address] [place] [address] CPT-4: 09339 9 Plan of Care Planned Activity Notes Codes Status Date Visit Plan: E11.9-250.00 Type 2 diabetes mellitus without complications Chronic, stable, diet controlled (FBS 110-120s), RBS 106, denies hypoglycemia. 09/06/18: A1c- 5.7 & 05/31/19: A1c- 6.0 POC: no change to POC needed. Will continue to monitor & assess the effectiveness of the current POC I10-401.9 Essential (primary) hypertension Chronic stable, controlled (128/80) for age & DM2 lisinopril 2.5 mg tablet 1 Tablet(s) PO daily metoprolol succinate ER 50 mg tablet, extended release hydrochlorothiazide 12.5 mg tablet 1 Tablet(s) PO QAM POC: will continue to evaluate current status & the effectiveness of the current POC. Will modify POC PRN. J45.909-493.90 Unspecified asthma, uncomplicated R06.2-786.07 Wheezing Chronic, stable, controlled (PaO2 98%- RA). Denies recent flair in s/s or recent illness. Singulair 10 mg tablet 1 Tablet(s) PO daily 30 days Refills: 5 Qty: 30 [06/14/2018 - 12/10/2018] Ventolin HFA 90 mcg/actuation aerosol inhaler 2 Puff(s) INH QID 30 days Refills: 3 Qty: 1 [06/14/2018 - 10/11/2018] POC: will continue to evaluate the effectiveness of current POC & modify PRN. R07.9-786.50 Chest pain, unspecified R94.31-794.31 Abnormal electrocardiogram [ECG] [EKG] - Sinus Rhythm - T-abnormality - Possible Anterior ischemia pattern. ABNORMAL POC: Will refer to cardiology when the pt moves into [place] and has transportation F43.23-309.28 Adjustment disorder with mixed anxiety and [...] probably get sentenced to 6-8 yrs in long term. I'm going to stand right beside him no matter what 11/29/18: just [id number] from 30[facility] daiys [facility]it[facility], released early from a 60 day sentence. buspirone 7.5 mg tablet 1 Tablet(s) PO BID 30 days Refills: 1 Qty: 60 [06/14/2018 - 08/12/2018] : will evaluate for increase at next visit Prozac 10 mg capsule 1 Capsule(s) PO daily 30 days Refills: 1 Qty: 30 [06/14/2018 - 08/12/2018] POC: being managed by [facility] BAUDILIO Dowling Seeing counselor at [facility] also R51-784.0 Headache 09/21/18: ambulance admission to [facility]. pt stated she had been out of medication for 3 days. Pt states that she didn't get to the natural headache medication: the only thing that works for her. R60.9-782.3 Edema, unspecified hydrochlorothiazide 12.5 mg tablet 1 Tablet(s) PO QAM POC: continue on current medications, keep legs & feet elevated when sitting, avoid high salt foods. N18.9-585.9 Chronic kidney disease, unspecified 09/06/18: GFR- 104, Cr- 0.7, BUN- 8, K- 4.0, Mg & Phos- WNL 05/31/18: GFR-92, Cr- 0.7, BUN-18, K- 4.0 POC: will move this Dx to resolved 11/29/2018 Patient Education: Patient Medication Summary Completed 11/29/2018 Patient Education: Hypertension Completed 11/29/2018 Patient Education: Headaches Completed 11/29/2018 Patient Education: Diabetes Completed 11/29/2018 Referral: Pending Gynecology Referral Information Referral Processed Referral: Pending Pulmonology Referral Information Referral Processed Referral: Pending Psychiatry Referral Information Referral Initiated Referral: Pending Respiratory Services Referral Information Referral Initiated Referral: Pending Ophthalmology Referral Information Referral Initiated Referral: [facility] WPtel: [address] [place] [address] [place] [employer] placed a call out to the patient to notify her that it has been recommended that she be seen by 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 Patient agreed to be seen, does not have a provider of choice and no transportation issues. [employer] faxed referral and clinical notes to [facility] in [place], [place] near the patient's home. Patient to [...] seen and prefers a provider in the [place] or [place] area. [employer] placed a call out to everyone listed in the area and the only location that was able to accept the patient's insurance was [address] [address] and spoke with Maylin. Maylin asked that the patient's referral, face sheet and visit notes be faxed to . [employer] faxed over requested documents. Patient appointment confirmation letter generated and mailed to her home address. Patient to call to schedule an appointment. Processed Referral: [facility] WPtel: [address] [place] [address] Patient notified that it has been advised that she be seen by Neurology. Patient agreed to be seen and prefers to be seen by a provider in the [place], [place] area. Patient denies any concerns with transportation, and prefers to schedule her own appointment. [employer] placed a call out to [facility] and spoke with Neeraj [...] without complications Chronic, stable, diet controlled (FBS 110-120s), RBS 106, denies hypoglycemia. 09/06/18: A1c- 5.7 & 05/31/19: A1c- 6.0 POC: no change to POC needed. Will continue to monitor & assess the effectiveness of the current POC I10-401.9 Essential (primary) hypertension Chronic stable, controlled (128/80) for age & DM2 lisinopril 2.5 mg tablet; 1 Tablet(s) PO daily metoprolol succinate ER 50 mg tablet, extended release hydrochlorothiazide 12.5 mg tablet; 1 Tablet(s) PO QAM POC: will continue to evaluate current status & the effectiveness of the current POC. Will modify POC PRN. J45.909-493.90 Unspecified asthma, uncomplicated R06.2-786.07 Wheezing Chronic, stable, controlled (PaO2 98%- RA). Denies recent flair in s/s or recent illness. Singulair 10 mg tablet; 1 Tablet(s) PO daily; 30 days; Refills: 5; Qty: 30 [06/14/2018 - 12/10/2018] Ventolin HFA 90 mcg/actuation aerosol inhaler; 2 Puff(s) INH QID; 30 days; Refills: 3; Qty: 1 [06/14/2018 - 10/11/2018] POC: will continue to evaluate the effectiveness of current POC & modify PRN. R07.9-786.50 Chest pain, unspecified R94.31-794.31 Abnormal electrocardiogram [ECG] [EKG] - Sinus Rhythm - T-abnormality - Possible Anterior ischemia pattern. ABNORMAL POC: Will refer to cardiology when the pt moves into [place] and has transportation F43.23-309.28 Adjustment disorder with mixed anxiety and [...] probably get sentenced to 6-8 yrs in long term. I'm going to stand right beside him no matter what 11/29/18: just [id number] from 30+ daiys in penitentiary, released early from a 60 day sentence. buspirone 7.5 mg tablet; 1 Tablet(s) PO BID; 30 days; Refills: 1; Qty: 60 [06/14/2018 - 08/12/2018]; : will evaluate for increase at next visit Prozac 10 mg capsule; 1 Capsule(s) PO daily; 30 days; Refills: 1; Qty: 30 [06/14/2018 - 08/12/2018] POC: being managed by [facility] [place] Seeing counselor at [facility] also R51-784.0 Headache 09/21/18: ambulance admission to [facility]. pt stated she had been out of medication for 3 days. Pt states that she didn't get to the natural headache medication: the only thing that works for her. R60.9-782.3 Edema, unspecified hydrochlorothiazide 12.5 mg tablet; 1 Tablet(s) PO QAM POC: continue on current medications, keep legs & feet elevated when sitting, avoid high salt foods. N18.9-585.9 Chronic kidney disease, unspecified 09/06/18: GFR- 104, Cr- 0.7, BUN- 8, K- 4.0, Mg & Phos- WNL 05/31/18: GFR-92, Cr- 0.7, BUN-18, K- 4.0 POC: will move this Dx to resolved 11/29/2018 Medical Equipment No Medical Equipment data Advance Directives No Advance Directive data
--- OUTSIDE RECORDS SUMMARY | 2018-12-29 20:00 | XMS_ITS | CCD ---
Author Name Ursula Palafox NP y Address [address] [place] [address] Phone Organization [facility] Phone Care Team Providers Care Director Talent Management Name Role Phone Palomo KING, Anna Primary Care Provider Unav ailable Unavailable Chronic Care Management Unavaila ble Summary Purpose DataExchange Insurance Providers Payer name Policy type / Coverage type Covered republican ID Effective Begin Date Effective End Date [employer] [facility] [id number] Unknown Unknown Family history Mother Diagnosis Age [...] Unknown Disability 05/31/[address]: 284516123 Has never s moked or chewed tobacco 05/31/[address]: 491651696 Never drinks alco hol 05/31/2018 Has the [...] [EKG] ICD-10: R94.31 ICD-9: 794.31 05/30/2018 Active Edema, unspecified ICD-10: R60.9 ICD-9: 782.3 07/11/2018 Active Essential (primary) hypertension ICD-10: I10 ICD-9: 401.9 10/03/2018 Active Hypothyroidism, unspecified ICD-10: E03. 9 ICD-9: 244.9 09/05/2018 Active Type 2 diabetes mellitus wit hout complications ICD-10: E11.9 ICD-9: 250.00 10/03/2018 Active Unspecified asthma, uncomplicated ICD-10 : J45.909 ICD-9: 493.90 08/08/2018 Active Adjustment disorder with mix ed anxiety and depressed mood ICD-10: F43.23 ICD-9: 309.28 09/05/2018 Active Chest pain, unspecified ICD-10: R07.9 ICD-9: 786.50 11/29/2018 Active Headache ICD-10: R51 ICD-9: 784.0 10/03/2018 Active Post-traumatic stress disord er, unspecified ICD-10: F43.10 ICD-9: 309.81 09/05/2018 Active Wheezing ICD-10: R06.2 ICD-9: 786.07 08/08/2018 Active Acute upper respiratory infe ction, unspecified ICD-10: J06.9 ICD-9: 465.9 09/23/2018 Resolved Chronic kidney disease, unspecified ICD- 10: N18.9 ICD-9: 585.9 10/03/2018 Resolved Polyneuropathy, unspecified ICD-10: G62. 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 9 , adult ICD-10: Z68.43 ICD-9: V85.43 05/30/2018 Active Hyperlipidemia, unspecified ICD-10: E78. 5 ICD-9: 272.4 05/30/2018 Active Medications Medication Codes Instructions Start Date Stop Date Status Fill Instructions lisinopril 2.5 mg tablet RxNorm: 522938 1 Tablet(s) PO daily 12/28/19 19 2018 Inactive ranitidine 150 mg tablet RxNorm: 187681 1 Tablet(s) PO BID 10/21/19 19 2018 Inactive This refill negates all other refills of this medication albuterol sulfate 2.5 mg/3 mL (0.083 %) solution for nebulization RxNorm: 288807 1 Vial INH QID 10/21/19 19 2018 [...] negates all other refills of this medication atorvastatin 20 mg tablet RxNorm: 314956 1 Tablet(s) PO QHS 10/21/192018 Inactive This refill negates all other refills of this medication Ventolin HFA 90 mcg/actuation aerosol inhaler RxNorm: 981828 2 Puff(s) INH QID 10/21/192018 Inactive Please do not fill early. Please do not auto refill. This refill negates all other refills of this medication Calcium 600-D3 Plus 600 mg calcium-800 unit-50 mg tablet RxNorm: 1 Tablet(s) PO daily take an additonal tablet for itching. 10/21/192018 Inactive This refill negates all other refills of this medication Singulair 10 mg tablet RxNorm: 804189 1 Tablet(s) PO daily 10/21/192018 Inactive This refill negates all other refills of this medication buspirone 7.5 mg tablet RxNorm: 464702 1 Tablet(s) PO BID 10/21/192018 Inactive This refill negates all other refills of this medication diclofenac sodium 75 mg tablet,delayed release RxNorm: 802900 1 Tablet(s) PO BID 10/21/192018 Inactive This refill negates all other refills of this medication hydrochlorothiazide 12.5 mg tablet RxNorm: 583395 1 Tablet(s) PO QAM 10/21/19 19 2018 Inactive levothyroxine 50 mcg tablet RxNorm: 021423 1 Tablet(s) PO daily 10/21/19 19 2018 Inactive This refill negates all other refills of this medication cetirizine 10 mg tablet RxNorm: 1799507 1 Tablet(s) PO daily 10/21/192018 Inactive This refill negates all other refills of this medication. Please do not auto refill Flintstones Complete (iron) 18 mg iron chewable tablet RxNorm: 1 Tablet(s) PO daily 10/21/192018 Inactive This refill negates all other refills of this medication gabapentin 300 mg capsule RxNorm: 640672 1 Capsule(s) PO TID as needed 10/21/192018 Inactive trazodone 50 mg tablet RxNorm: 482288 1 Tablet(s) PO QHS 10/21/19 19 2018 Inactive This refill negates all other refills of this medication metoprolol succinate ER 50 mg tablet,extended release 24 hr RxNorm: 005421 1 Tablet(s) PO daily 10/21/19 19 2018 Inactive This refill negates all other refills of this medication buspirone 7.5 mg tablet RxNorm: 997193 1 Tablet(s) PO BID 10/12/192018 Inactive cetirizine 10 mg tablet RxNorm: 8598354 1 Tablet(s) PO daily 09/28/202018 Inactive Guaiasorb DM 10 mg-100 mg/5 mL oral liquid RxNorm: 022636 10 Milliliter(s) PO As needed every 4 hr 09/24/202018 Inactive Vicks Vaporub 4.7 %-1.2 %-2.6 % topical ointment RxNorm: 6823327 1 Application TOP TID 09/24/20 18 2018 Inactive levmetamfetamine 50 mg nasal inhaler RxNorm: 1 Unit(s) NASAL Q3-4H 09/24/20 18 2017 Inactive sertraline 50 mg tablet RxNorm: 900400 1 Tablet(s) PO daily 09/09/20 18 2018 Inactive Please note dose trazodone 50 mg tablet RxNorm: 200425 1 Tablet(s) PO QHS 09/06/20 18 2018 Inactive sertraline 50 mg tablet RxNorm: 610341 1 Tablet(s) PO daily 09/06/20 18 2017 Inactive amoxicillin 500 mg tablet RxNorm: 345861 1 Tablet(s) PO Q12H 08/31/20 18 2017 Inactive albuterol sulfate 2.5 mg/3 mL (0.083 %) solution for nebulization RxNorm: 091770 1 Vial INH QID 08/10/20 18 2018 Inactive 60/box. Please do not fill early. Please do not auto refill. Prozac 10 mg capsule RxNorm: 072094 1 Capsule(s) PO daily 08/09/20 18 2017 Inactive buspirone 7.5 mg tablet RxNorm: 664207 1 Tablet(s) PO BID 08/09/20 18 2018 Inactive gabapentin 300 mg capsule RxNorm: 199835 1 Capsule(s) PO TID as needed 08/01/20 18 2018 Inactive hydrochlorothiazide 12.5 mg tablet RxNorm: 927455 1 Tablet(s) PO QAM 08/01/20 18 2018 Inactive ranitidine 150 mg tablet RxNorm: 792748 1 Tablet(s) PO BID 08/01/20 18 2018 Inactive Macrobid 100 mg capsule RxNorm: 750586 1 Capsule(s) PO Q12H 06/21/20 18 2017 Inactive Singulair 10 mg tablet RxNorm: 794022 1 Tablet(s) PO daily 06/14/20 18 2018 Inactive Ventolin HFA 90 mcg/actuation aerosol inhaler RxNorm: 6605082 2 Puff(s) INH QID 06/14/20 18 2018 Inactive Singulair 10 mg tablet RxNorm: 664382 1 Tablet(s) PO daily 06/14/20 18 2017 Inactive buspirone 7.5 mg tablet RxNorm: 076420 1 Tablet(s) PO BID 06/14/20 18 2017 Inactive Prozac 10 mg capsule RxNorm: 498851 1 Capsule(s) PO daily 06/14/20 18 2017 Inactive Neilmed Pediatric Sinus Rinse Refill packet RxNorm: 1 Unit Dose NASAL PRN 05/31/20 18 2021 Inactive diclofenac sodium 75 mg tablet,delayed release RxNorm: 502077 1 Tablet(s) PO BID 05/31/20 18 2017 Inactive lisinopril 2.5 mg tablet RxNorm: 970151 1 Tablet(s) PO daily 05/31/20 18 2017 Inactive metoprolol succinate ER 50 mg tablet,extended release 24 hr RxNorm: 907102 1 Tablet(s) PO daily 05/31/20 18 2017 Inactive levothyroxine 50 mcg tablet RxNorm: 504355 1 Tablet(s) PO daily 05/31/20 18 2017 Inactive TRUEplus Lancets 30 gauge RxNorm: 1 Lancets Miscellaneous QAM 05/31/20 18 2017 Inactive 100/box Ventolin HFA 90 mcg/actuation aerosol inhaler RxNorm: 432928 2 Puff(s) INH QID 05/31/20 18 2017 Inactive Aleve 220 mg capsule RxNorm: 8489251 1 Capsule(s) PO BID 05/31/20 18 2018 Inactive ranitidine 150 mg tablet RxNorm: 758498 1 Tablet(s) PO BID 05/31/20 18 2017 Inactive gabapentin 300 mg capsule RxNorm: 532294 1 Capsule(s) PO TID as needed 05/31/20 18 2017 Inactive atorvastatin 20 mg tablet RxNorm: 005476 1 Tablet(s) PO QHS 05/31/20 18 2017 Inactive True Metrix Glucose Test Strip RxNorm: 1 Test Strips Miscellaneous QAM 05/31/20 18 2017 Inactive 50/container Calcium 600-D3 Plus 600 mg calcium-800 unit-50 mg tablet RxNorm: 1 Tablet(s) PO daily take an additonal tablet for itching. 05/31/20 18 2017 Inactive hydrochlorothiazide 12.5 mg tablet RxNorm: 706779 1 Tablet(s) PO QAM 05/31/20 18 2017 Inactive Flmichaeles Complete (iron) 18 mg iron chewable tablet RxNorm: 1 Tablet(s) PO daily 05/31/20 18 2017 Inactive True Metrix Glucose Meter RxNorm: miscellaneous 08/17/20 19 2018 Inactive sertraline 50 mg tablet RxNorm: 330753 1 Tablet(s) PO daily 11/28/19 20 2019 Inactive loperamide 2 mg tablet RxNorm: 561816 oral 09/29/20 19 2018 Inactive d-mannose oral powder RxNorm: PO 18 2021 Inactive Medication Administered No Medication Administered data Results Observation Observation Code Item Item Code Result Date Service Location CHEM 14 (METABOLIC PANEL) 37970 Glucose 2345-7 91 mg/dL 12/30/19 [facility] [address] [place] [address] CHEM 14 (METABOLIC PANEL) 73080 BUN 3094-0 20 mg/dL 12/30/19 [facility] [address] [place] [address] CHEM 14 (METABOLIC PANEL) 79771 Creatinine 2160-0 0.8 mg/dL 12/30/19 [facility] [address] [place] [address] CHEM 14 (METABOLIC PANEL) 13374 BUN/Creat Ratio 3097-3 25.6 12/30/19 [facility] [address] [place] [address] CHEM 14 (METABOLIC PANEL) 72051 GFR Estimated 85402-3 85 mL/min/1.7 3m2 12/30/19 19 [facility] [address] [place] [address] CHEM 14 (METABOLIC PANEL) 44936 GFR Estimated for Americans 63300-6 102 mL/min/1.7 3m2 12/30/19 19 [facility] [address] [place] [address] CHEM 14 (METABOLIC PANEL) 26661 Sodium 2951-2 141 mmol/L 12/30/19 [facility] [address] [place] [address] CHEM 14 (METABOLIC PANEL) 64850 Potassium 2823-3 4.9 mmol/L 12/30/19 [facility] [address] [place] [address] CHEM 14 (METABOLIC PANEL) 22067 Chloride 2075-0 109 mmol/L 12/30/19 [facility] [address] [place] [address] CHEM 14 (METABOLIC PANEL) 44161 Total CO2 2028-9 26 mmol/L 12/30/19 [facility] [address] [place] [address] CHEM 14 (METABOLIC PANEL) 61481 Anion Gap 1863-0 10.9 mEq/L 12/30/19 [facility] [address] [place] [address] CHEM 14 (METABOLIC PANEL) 42572 Calculated Serum Osmolality 92245-3 294 mOsm/kg 12/30/19 [facility] [address] [place] [address] CHEM 14 (METABOLIC PANEL) 80875 Albumin 05968-8 3.6 g/dL 12/30/19 [facility] [address] [place] [address] 40157 CHEM 14 (METABOLIC PANEL) 97836 Total Protein 2885-2 7.1 g/dL 12/30/19 [facility] [address] [place] [address] 36701 CHEM 14 (METABOLIC PANEL) 08396 Globulin 2336-6 3.5 g/dL 12/30/19 [facility] [address] [place] [address] 80066 CHEM 14 (METABOLIC PANEL) 71578 Albumin/Globul in Ratio 1759-0 1.0 12/30/19 [facility] [address] [place] [address] CHEM 14 (METABOLIC PANEL) 56570 ALK PHOS 6768-6 71.00 U/L 12/30/19 [facility] [address] [place] [address] 46825 CHEM 14 (METABOLIC PANEL) 79773 SGOT/AST 1920-8 19 U/L 12/30/19 [facility] [address] [place] [address] 67113 CHEM 14 (METABOLIC PANEL) 60915 SGPT/ALT 1743-4 28 U/L 12/30/19 [facility] [address] [place] [address] CHEM 14 (METABOLIC PANEL) 66152 Total Bilirubin 1975-2 0.4 mg/dL 12/30/19 [facility] [address] [place] [address] 20615 CHEM 14 (METABOLIC PANEL) 68714 Calcium 79485-6 8.9 mg/dL 12/30/19 [facility] [address] [place] [address] CHEM 14 (METABOLIC PANEL) 75026 Corrected Calcium 70945-3 9.4 mg/dL 12/30/19 [facility] [address] [place] [address] FREE T-4 88520 FT4 3024-7 1.19 ng/dL 12/30/19 [facility] [address] [place] [address] URIC ACID 27073 Uric Acid 3084-1 5.4 mg/dL 12/30/19 [facility] [address] [place] [address] [id number] BIN 4548-4 Glyco HGB A1C 18949-4 5.8 % 12/30/19 [facility] [address] [place] [address] [id number] BIN 4548-4 eAG 85486-3 120 mg/dL 12/30/19 [facility] [address] [place] [address] Procedures Procedure Codes Date Electrocardiogram Finding/Sinus Bradycardia CPT-4: [id number] 12/27/2018 Vital Signs Date Vital 12/27/2018 Blood Pressure 1: 110/78 Code: 8480-6 BMI: 54.3 Code: 78200-0 Heart Rate 1: 66 bpm Height: 4'11 Code: 8302-2 Karnofsky Score (0-100): 60 Random Blood Sugar: 112/NaN Respiratory Rate: 18 bpm SpO2: 99% Temperature: 36.8 (C) / 98.2 (F) Weight: 269 lbs Code: 17336-0 Reason For Visit Reason For Visit Effective Dates Notes hypertension 12/27/2018 diabetes mellitus 12/27/2018 headache 12/27/2018 Encounters Encounter Performer Location Location Address Codes Date HOME VISIT EST PATIENT Diagnosis: Type 2 diabetes mellitus without complications[ICD10: E11.9] Diagnosis: Essential (primary) hypertension[ICD10: I10] Diagnosis: Unspecified asthma, uncomplicated[ICD10: J45.909] Diagnosis: Edema, unspecified[ICD10: R60.9] Diagnosis: Hypothyroidism, unspecified[ICD10: E03.9] Diagnosis: Abnormal electrocardiogram [ECG] [EKG][ICD10: R94.31] Rasta Palafox [place] [facility] [address] [place] [address] CPT-4: 97025 9 Plan of Care Planned Activity Notes Codes Status Date Visit Plan: I10-401.9 Essential (primary) hypertension Chronic stable, controlled (110/78) for age & DM2 lisinopril 2.5 mg tablet 1 Tablet(s) PO daily metoprolol succinate ER 50 mg tablet, extended release hydrochlorothiazide 12.5 mg tablet 1 Tablet(s) PO QAM POC: will continue to evaluate current status & the effectiveness of the current POC. Will modify POC PRN. Labs drawn per [facility] Protocol to assess current status & the effectiveness of the current POC E11.9-250.00 Type 2 diabetes mellitus without complications Chronic, stable, diet controlled (FBS around 92), RBS 112, denies hypoglycemia. 09/06/18: A1c- 5.7 & 05/31/19: A1c- 6.0 POC: no change to POC needed. Will continue to monitor & assess the effectiveness of the current POC Labs drawn per [facility] Protocol to assess current status & the effectiveness of the current POC J45.909-493.90 Unspecified asthma, uncomplicated R06.2-786.07 Wheezing Chronic, stable, controlled (PaO2 99%- RA). Denies recent flair in s/s or recent illness. Singulair 10 mg tablet 1 Tablet(s) PO daily 30 days Refills: 5 Qty: 30 [06/14/2018 - 12/10/2018] Ventolin HFA 90 mcg/actuation aerosol inhaler 2 Puff(s) INH QID 30 days Refills: 3 Qty: 1 [06/14/2018 - 10/11/2018] POC: will continue to evaluate the effectiveness of current POC & modify PRN. R60.9-782.3 Edema, unspecified hydrochlorothiazide 12.5 mg tablet 1 Tablet(s) PO QAM POC: continue on current medications, keep legs & feet elevated when sitting, avoid high salt foods. E03.9-244.9 Hypothyroidism, unspecified levothyroxine 50 mcg tablet 1 Tablet(s) PO daily 90 days 05/2918: TSH- 2.190 POC: FT4 drawn per [facility] Protocol R94.31-794.31 Abnormal electrocardiogram [ECG] [EKG] 05/11/18: Sinus Rhythm - T-abnormality - Possible Anterior ischemia pattern. ABNORMAL 12/27/18: Sinus Bradycardia - Negative T-waves - May be normal for this age. NORMAL FOR AGE POC: will continue to monitor: no need to refer to cardiology ATT. ` Will do a f/u ECG in 6 months & PRN, if still WNL will changed this Dx to resolved. F43.23-309.28 Adjustment disorder with mixed anxiety and [...] she can understand the charges. Reduced to misdemeanor 3 (C) 10/16/18 Court. , may have to go to court . 09/20/18: gets sentenced for raping their daughter, probably get sentenced to 6-8 yrs in halfway. I'm going to stand right beside him no matter what 11/29/18: just release from 30+ days in snf, released early from a 60 day sentence. 12/27/18: pt cannot leave the state without approval from state & has to give the state her current address buspirone 7.5 mg tablet 1 Tablet(s) PO BID 30 days Refills: 1 Qty: 60 [06/14/2018 - 08/12/2018] : will evaluate for increase at next visit Prozac 10 mg capsule 1 Capsule(s) PO daily 30 days Refills: 1 Qty: 30 [06/14/2018 - 08/12/2018] POC: [facility] BAUDILIO Dowling Seeing counselor at [facility] also R51-784.0 Headache 09/21/18: ambulance admission to [facility]. pt stated she had been out of medication for 3 days. Pt states that she didn't get to the natural headache medication: the only thing that works for her. 12/27/18: headaches are less frequent & less severe. Pt states that may have been d/t her legal trouble. N18.9-585.9 Chronic kidney disease, unspecified 09/06/18: GFR- 104, Cr- 0.7, BUN- 8, K- 4.0, Mg & Phos- WNL 05/31/18: GFR-92, Cr- 0.7, BUN-18, K- 4.0 POC: will move this Dx to resolved 12/27/2018 Patient Education: Headaches Completed 12/27/2018 Patient Education: Diabetes Completed 12/27/2018 Patient Education: Hypertension Completed 12/27/2018 Patient Education: Patient Medication Summary Completed 12/27/2018 Referral: Pending Gynecology Referral Information Referral Processed Referral: Pending Pulmonology Referral Information Referral Processed Referral: Pending Psychiatry Referral Information Referral Initiated Referral: Pending Respiratory Services Referral Information Referral Initiated Referral: Pending Ophthalmology Referral Information Referral Initiated Referral: [facility] WPtel: [address] [place] [address] Direct Response Consultant placed a call out to the patient to notify her that it has been recommended that she be seen by 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 Patient agreed to be seen, does not have a provider of choice and no transportation issues. Direct Response Consultant faxed referral and clinical notes to [facility] in [place], [place] near the patient's home. Patient to [...] seen and prefers a provider in the [place] or [place] area. Direct Response Consultant placed a call out to everyone listed in the area and the only location that was able to accept the patient's insurance was [place] [address] [place] [address] and spoke with Maylin. Maylin asked that the patient's referral, face sheet and visit notes be faxed to . Direct Response Consultant faxed over requested documents. Patient appointment confirmation letter generated and mailed to her home address. Patient to call to schedule an appointment. Processed Referral: [facility] WPtel: [address] [facility] [address] [place], [place] [id number] [place] Patient notified that it has been advised that she be seen by Neurology. Patient agreed to be seen and prefers to be seen by a provider in the [place], [place] area. Patient denies any concerns with transportation, and prefers to schedule her own appointment. Direct Response Consultant placed a call out to [facility] and spoke with Neeraj P: who confirmed that their office is able to accept new patients and the patient's insurance. After confirming the providers fax number, account underwriter faxed over the patient's referral, and [...] Information Referral Initiated Instructions Comment Date . I10-401.9 Essential (prima ry) hypertension Chronic stable, controlled (110/78) for age & DM2 lisinopril 2.5 mg tablet; 1 Tablet(s) PO daily metoprolol succinate ER 50 mg tablet, extended release hydrochlorothiazide 12.5 mg tablet; 1 Tablet(s) PO QAM POC: will continue to evaluate current status & the effectiveness of the current POC. Will modify POC PRN. Labs drawn per [facility] Protocol to assess current status & the effectiveness of the current POC E11.9-250.00 Type 2 diabetes mellitus without complications Chronic, stable, diet controlled (FBS around 92), RBS 112, denies hypoglycemia. 09/06/18: A1c- 5.7 & 05/31/19: A1c- 6.0 POC: no change to POC needed. Will continue to monitor & assess the effectiveness of the current POC Labs drawn per [facility] Protocol to assess current status & the effectiveness of the current POC J45.909-493.90 Unspecified asthma, uncomplicated R06.2-786.07 Wheezing Chronic, stable, controlled (PaO2 99%- RA). Denies recent flair in s/s or recent illness. Singulair 10 mg tablet; 1 Tablet(s) PO daily; 30 days; Refills: 5; Qty: 30 [06/14/2018 - 12/10/2018] Ventolin HFA 90 mcg/actuation aerosol inhaler; 2 Puff(s) INH QID; 30 days; Refills: 3; Qty: 1 [06/14/2018 - 10/11/2018] POC: will continue to evaluate the effectiveness of current POC & modify PRN. R60.9-782.3 Edema, unspecified hydrochlorothiazide 12.5 mg tablet; 1 Tablet(s) PO QAM POC: continue on current medications, keep legs & feet elevated when sitting, avoid high salt foods. E03.9-244.9 Hypothyroidism, unspecified levothyroxine 50 mcg tablet; 1 Tablet(s) PO daily; 90 days 05/2918: TSH- 2.190 POC: FT4 drawn per [facility] Protocol R94.31-794.31 Abnormal electrocardiogram [ECG] [EKG] 05/11/18: Sinus Rhythm - T-abnormality - Possible Anterior ischemia pattern. ABNORMAL 12/27/18: Sinus Bradycardia - Negative T-waves - May be normal for this age. NORMAL FOR AGE POC: will continue to monitor: no need to refer to cardiology ATT. ` Will do a f/u ECG in 6 months & PRN, if still WNL will changed this Dx to resolved. F43.23-309.28 Adjustment disorder with mixed anxiety and [...] she can understand the charges. Reduced to misdemeanor 3 (C) 10/16/18 Court. , may have to go to court . 09/20/18: gets sentenced for raping their daughter, probably get sentenced to 6-8 yrs in halfway. I'm going to stand right beside him no matter what 11/29/18: just release from 30+ days in snf, released early from a 60 day sentence. 12/27/18: pt cannot leave the state without approval from state & has to give the state her current address buspirone 7.5 mg tablet; 1 Tablet(s) PO BID; 30 days; Refills: 1; Qty: 60 [06/14/2018 - 08/12/2018]; : will evaluate for increase at next visit Prozac 10 mg capsule; 1 Capsule(s) PO daily; 30 days; Refills: 1; Qty: 30 [06/14/2018 - 08/12/2018] POC: being managed by [facility] Nitesh PA Seeing counselor at [facility] also R51-784.0 Headache 09/21/18: ambulance admission to [facility]. pt stated she had been out of medication for 3 days. Pt states that she didn't get to the natural headache medication: the only thing that works for her. 12/27/18: headaches are less frequent & less severe. Pt states that may have been d/t her legal trouble. N18.9-585.9 Chronic kidney disease, unspecified 09/06/18: GFR- 104, Cr- 0.7, BUN- 8, K- 4.0, Mg & Phos- WNL 05/31/18: GFR-92, Cr- 0.7, BUN-18, K- 4.0 POC: will move this Dx to resolved 12/27/2018 Medical Equipment No Medical Equipment data Advance Directives No Advance Directive data
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
--- OUTSIDE RECORDS SUMMARY | 2019-02-07 20:00 | XMS_ITS | CCD ---
Author Name Ursula Palafox NP y Address [address] [facility] [address] [place] [address] Phone Organization [facility] Phone Care Team Providers Care Germ Drier Name Role Phone Palomo KING, Anna Primary Care Provider Unav ailable Unavailable Chronic Care Management Unavaila ble Summary Purpose DataExchange Insurance Providers Payer name Policy type / Coverage type Covered republican ID Effective Begin Date Effective End Date [employer]KI BUTTS [facility] [id number] Unknown Unknown Family history Mother Diagnosis Age [...] Unknown Disability 05/31/[address]: 842945260 Has never s moked or chewed tobacco 05/31/[address]: 989400339 Never drinks alco hol 05/31/2018 Has the [...] classified ICD-10: R06.81 ICD-9: 786.03 01/31/2019 Active Body mass index (BMI) 50-59. 9 , adult ICD-10: Z68.43 ICD-9: V85.43 05/30/2018 Active Dyspnea, unspecified ICD-10: R06.00 ICD-9: 786.09 02/08/2019 Active Post-traumatic stress disord er, unspecified ICD-10: F43.10 ICD-9: 309.81 09/05/2018 Active Unspecified asthma, uncomplicated ICD-10 : J45.909 ICD-9: 493.90 08/08/2018 Active Essential (primary) hypertension ICD-10: I10 ICD-9: 401.9 10/03/2018 Active Type 2 diabetes mellitus wit hout complications ICD-10: E11.9 ICD-9: 250.00 10/03/2018 Active Wheezing ICD-10: R06.2 ICD-9: 786.07 08/08/2018 [...] Headache ICD-10: R51 ICD-9: 784.0 10/03/2018 Active Acute upper respiratory infe ction, unspecified ICD-10: J06.9 ICD-9: 465.9 09/23/2018 Resolved Chronic kidney disease, unspecified ICD- 10: N18.9 ICD-9: 585.9 10/03/2018 Resolved Polyneuropathy, unspecified ICD-10: G62. 9 ICD-9: 356.9 05/30/2018 Active Encounter for screening, unspecified ICD -10: Z13.9 ICD-9: V82.9 09/05/2018 Active terminal carman (current) use of non-steroidal anti-inflammatories (NSAID) ICD-10: Z79.1 ICD-9: V58.64 06/13/2018 Active Hyperlipidemia, unspecified ICD-10: E78. 5 ICD-9: 272.4 05/30/2018 Active Medications Medication Codes Instructions Start Date Stop Date Status Fill Instructions gabapentin 300 mg capsule RxNorm: 207277 1 Capsule(s) PO TID as needed 02/01/20 19 2018 Inactive True Metrix Glucose Test Strip RxNorm: 1 Test Strips Miscellaneous QAM 02/01/20 19 2018 Inactive 100/container Alcohol Prep Pads RxNorm: 976427 1 Patch TOP QAM 02/01/20 19 2018 Inactive TRUEplus Lancets 30 gauge RxNorm: 1 Lancets Miscellaneous QAM 02/01/20 19 2018 Inactive 100/box lisinopril 2.5 mg tablet RxNorm: 540006 1 Tablet(s) PO daily 12/28/19 19 2018 Inactive ranitidine 150 mg tablet RxNorm: 077349 1 Tablet(s) PO BID 10/21/192018 Inactive This refill negates all other refills of this medication albuterol sulfate 2.5 mg/3 mL (0.083 %) solution for nebulization RxNorm: 375459 1 Vial INH QID 10/21/19 19 2018 Inactive 60/box. This refill negates all other refills of this medication. Please do not fill early. Please do not auto refill. atorvastatin 20 mg tablet RxNorm: 519672 1 Tablet(s) PO QHS 10/21/192018 Inactive This refill negates all other refills of this medication Ventolin HFA 90 mcg/actuation aerosol inhaler RxNorm: 239863 2 Puff(s) INH QID 10/21/19 19 2018 [...] this medication Singulair 10 mg tablet RxNorm: 626408 1 Tablet(s) PO daily 10/21/192018 Inactive This refill negates all other refills of this medication buspirone 7.5 mg tablet RxNorm: 989760 1 Tablet(s) PO BID 10/21/192018 Inactive This refill negates all other refills of this medication hydrochlorothiazide 12.5 mg tablet RxNorm: 936550 1 Tablet(s) PO QAM 10/21/192018 Inactive levothyroxine 50 mcg tablet RxNorm: 737676 1 Tablet(s) PO daily 10/21/192018 Inactive This refill negates all other refills of this medication cetirizine 10 mg tablet RxNorm: 1684238 1 Tablet(s) PO daily 10/21/192018 Inactive This [...] this medication gabapentin 300 mg capsule RxNorm: 043080 1 Capsule(s) PO TID as needed 10/21/192018 Inactive trazodone 50 mg tablet RxNorm: 401771 1 Tablet(s) PO QHS 10/21/192018 Inactive This refill negates all other refills of this medication diclofenac sodium 75 mg tablet,delayed release RxNorm: 482439 1 Tablet(s) PO BID 10/21/192018 Inactive This refill negates all other refills of this medication metoprolol succinate ER 50 mg tablet,extended release 24 hr RxNorm: 169129 1 Tablet(s) PO daily 10/21/192018 Inactive This refill negates all other refills of this medication buspirone 7.5 mg tablet RxNorm: 472860 1 Tablet(s) PO BID 10/12/19 19 2018 Inactive cetirizine 10 mg tablet RxNorm: 2349014 1 Tablet(s) PO daily 09/28/20 18 2018 Inactive Guaiasorb DM 10 mg-100 mg/5 mL oral liquid RxNorm: 438886 10 Milliliter(s) PO As needed every 4 hr 09/24/20 18 2018 Inactive Vicks Vaporub 4.7 %-1.2 %-2.6 % topical ointment RxNorm: 0401016 1 Application TOP TID 09/24/20 18 2018 Inactive levmetamfetamine 50 mg nasal inhaler RxNorm: 1 Unit(s) NASAL Q3-4H 09/24/20 18 2017 Inactive sertraline 50 mg tablet RxNorm: 069301 1 Tablet(s) PO daily 09/09/20 18 2018 Inactive Please note dose trazodone 50 mg tablet RxNorm: 145670 1 Tablet(s) PO QHS 09/06/20 18 2018 Inactive sertraline 50 mg tablet RxNorm: 177821 1 Tablet(s) PO daily 09/06/20 18 2017 Inactive amoxicillin 500 mg tablet RxNorm: 350759 1 Tablet(s) PO Q12H 08/31/20 18 2017 Inactive albuterol sulfate 2.5 mg/3 mL (0.083 %) solution for nebulization RxNorm: 415067 1 Vial INH QID 08/10/20 18 2018 Inactive 60/box. Please do not fill early. Please do not auto refill. Prozac 10 mg capsule RxNorm: 294111 1 Capsule(s) PO daily 08/09/20 18 2017 Inactive buspirone 7.5 mg tablet RxNorm: 650428 1 Tablet(s) PO BID 08/09/20 18 2018 Inactive gabapentin 300 mg capsule RxNorm: 870953 1 Capsule(s) PO TID as needed 08/01/20 18 2018 Inactive hydrochlorothiazide 12.5 mg tablet RxNorm: 903723 1 Tablet(s) PO QAM 08/01/20 18 2018 Inactive ranitidine 150 mg tablet RxNorm: 597687 1 Tablet(s) PO BID 08/01/20 18 2018 Inactive Macrobid 100 mg capsule RxNorm: 741785 1 Capsule(s) PO Q12H 06/21/20 18 2017 Inactive Singulair 10 mg tablet RxNorm: 586244 1 Tablet(s) PO daily 06/14/20 18 2018 Inactive Ventolin HFA 90 mcg/actuation aerosol inhaler RxNorm: 7299077 2 Puff(s) INH QID 06/14/20 18 2018 Inactive Singulair 10 mg tablet RxNorm: 388090 1 Tablet(s) PO daily 06/14/20 18 2017 Inactive buspirone 7.5 mg tablet RxNorm: 702005 1 Tablet(s) PO BID 06/14/20 18 2017 Inactive Prozac 10 mg capsule RxNorm: 600025 1 Capsule(s) PO daily 06/14/20 18 2017 Inactive Neilmed Pediatric Sinus Rinse Refill packet RxNorm: 1 Unit Dose NASAL PRN 05/31/20 18 2021 Inactive diclofenac sodium 75 mg tablet,delayed release RxNorm: 776758 1 Tablet(s) PO BID 05/31/20 18 2017 Inactive lisinopril 2.5 mg tablet RxNorm: 357367 1 Tablet(s) PO daily 05/31/20 18 2017 Inactive metoprolol succinate ER 50 mg tablet,extended release 24 hr RxNorm: 082290 1 Tablet(s) PO daily 05/31/20 18 2017 Inactive levothyroxine 50 mcg tablet RxNorm: 363026 1 Tablet(s) PO daily 05/31/20 18 2017 Inactive TRUEplus Lancets 30 gauge RxNorm: 1 Lancets Miscellaneous QAM 05/31/20 18 2017 Inactive 100/box Ventolin HFA 90 mcg/actuation aerosol inhaler RxNorm: 999682 2 Puff(s) INH QID 05/31/20 18 2017 Inactive Aleve 220 mg capsule RxNorm: 5903484 1 Capsule(s) PO BID 05/31/20 18 2018 Inactive ranitidine 150 mg tablet RxNorm: 860605 1 Tablet(s) PO BID 05/31/20 18 2017 Inactive gabapentin 300 mg capsule RxNorm: 008418 1 Capsule(s) PO TID as needed 05/31/20 18 2017 Inactive atorvastatin 20 mg tablet RxNorm: 145581 1 Tablet(s) PO QHS 05/31/20 18 2017 Inactive True Metrix Glucose Test Strip RxNorm: 1 Test [facility]ps [facility] 05/31/20 18 2017 Inactive 50/container Calcium 600-D3 Plus 600 mg calcium-800 unit-50 mg tablet RxNorm: 1 Tablet(s) PO daily take an additonal tablet for itching. 05/31/20 18 2017 Inactive hydrochlorothiazide 12.5 mg tablet RxNorm: 239599 1 Tablet(s) PO QAM 05/31/20 18 2017 Inactive Flintstones Complete (iron) 18 mg iron chewable tablet RxNorm: 1 Tablet(s) PO daily 05/31/20 18 2017 Inactive True Metrix Glucose Meter RxNorm: miscellaneous 08/17/20 19 2018 Inactive sertraline 50 mg tablet RxNorm: 697582 1 Tablet(s) PO daily 11/28/19 20 2019 Inactive loperamide 2 mg tablet RxNorm: 098489 oral 09/29/20 19 2018 Inactive d-mannose oral powder RxNorm: PO 18 2021 Inactive Medication Administered No Medication Administered data Reason For Visit No Reason For Visit data Plan of Care Planned Activity Notes Codes Status Date Patient Education: Patient Medication Summary Completed 02/08/2019 Appointment: Rasta Palafox WPtel: [address] [facility] [id number] 01/31/2019 Appointment: Rasta Palafox WPtel: [address] [facility] b [id number] E420 12/27/2018 Referral: Pending Gynecology Referral Information Referral Processed Referral: Pending Pulmonolog y Referral Information Referral Processed Referral: Pending Psychiatry Referral Information Referral Initiated Referral: Pending Respirator y Services Referral Information Referral Initiated Referral: Pending Ophthalmology Referral Information Referral Initiated Referral: [facility] WPtel: [address] [facility] [address] [facility] Primary Therapist placed a call out to the patient to notify her that it has been recommended that she be seen by 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 Patient agreed to be seen, does not have a provider of choice and no transportation issues. Primary Therapist faxed referral and clinical notes to [facility] in [place], [place] near the patient's home. Patient [...] seen and prefers a provider in the [place] or [place] area. Primary Therapist placed a call out to everyone listed in the area and the only location that was able to accept the patient's insurance was [address] [address] and spoke with Maylin. Maylin asked that the patient's referral, face sheet and visit notes be faxed to . Primary Therapist faxed over requested documents. Patient appointment confirmation letter generated and mailed to her home address. Patient to call to schedule an appointment. Processed Referral: [facility] WPtel: [address] [id number] Patient notified that it has been advised that she be seen by Neurology. Patient agreed to be seen and prefers to be seen by a provider in the [place], [place] area. Patient denies any concerns with transportation, and prefers to schedule her own appointment. Primary Therapist [facility] and spoke with Neeraj Mcfarland: who confirmed that their office is able to accept new patients and the patient's insurance. After confirming the providers fax number, poem writer faxed over the patient's referral, and [...]
--- OUTSIDE RECORDS SUMMARY | 2019-02-18 20:00 | XMS_ITS | CCD ---
Author Name Ursula Palafox NP y Address [address] 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 Operator Name Role Phone Palomo KING, Anna Primary Care Provider Unav ailable Unavailable Chronic Care Management Unavaila ble Summary Purpose DataExchange Insurance Providers Payer name Policy type / Coverage type Covered constitution party ID Effective Begin Date Effective End Date SKUI BUTTS [facility] [id number] Unknown Unknown Family history Mother Diagnosis Age [...] Unknown Disability 05/31/[address]: 363750060 Has never s moked or chewed tobacco 05/31/[address]: 623791871 Never drinks alco hol 05/31/2018 Has the [...] ICD -10: Z13.9 ICD-9: V82.9 09/05/2018 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 5 ICD-9: 272.4 05/30/2018 Active Medications Medication Codes Instructions Start Date Stop Date Status Fill Instructions gabapentin 300 mg capsule RxNorm: 396524 1 Capsule(s) PO TID as needed 02/01/20 19 2018 Inactive True Metrix Glucose Test Strip RxNorm: 1 Test Strips Miscellaneous QAM 02/01/20 19 2018 Inactive 100/container Alcohol Prep Pads RxNorm: 293247 1 Patch TOP QAM 02/01/20 19 2018 Inactive TRUEplus Lancets 30 gauge RxNorm: 1 Lancets Miscellaneous QAM 02/01/20 19 2018 Inactive 100/box lisinopril 2.5 mg tablet RxNorm: 905680 1 Tablet(s) PO daily 12/28/19 19 2018 Inactive ranitidine 150 mg tablet RxNorm: 043528 1 Tablet(s) PO BID 10/21/192018 Inactive This refill negates all other refills of this medication albuterol sulfate 2.5 mg/3 mL (0.083 %) solution for nebulization RxNorm: 778930 1 Vial INH QID 10/21/19 19 2018 Inactive 60/box. This refill negates all other refills of this medication. Please do not fill early. Please do not auto refill. atorvastatin 20 mg tablet RxNorm: 420095 1 Tablet(s) PO QHS 10/21/192018 Inactive This refill negates all other refills of this medication Ventolin HFA 90 mcg/actuation aerosol inhaler RxNorm: 114121 2 Puff(s) INH QID 10/21/19 19 2018 [...] this medication Singulair 10 mg tablet RxNorm: 320737 1 Tablet(s) PO daily 10/21/192018 Inactive This refill negates all other refills of this medication buspirone 7.5 mg tablet RxNorm: 185473 1 Tablet(s) PO BID 10/21/192018 Inactive This refill negates all other refills of this medication hydrochlorothiazide 12.5 mg tablet RxNorm: 638356 1 Tablet(s) PO QAM 10/21/192018 Inactive levothyroxine 50 mcg tablet RxNorm: 273847 1 Tablet(s) PO daily 10/21/192018 Inactive This refill negates all other refills of this medication cetirizine 10 mg tablet RxNorm: 2691185 1 Tablet(s) PO daily 10/21/192018 Inactive This [...] this medication gabapentin 300 mg capsule RxNorm: 351889 1 Capsule(s) PO TID as needed 10/21/192018 Inactive trazodone 50 mg tablet RxNorm: 532022 1 Tablet(s) PO QHS 10/21/192018 Inactive This refill negates all other refills of this medication diclofenac sodium 75 mg tablet,delayed release RxNorm: 528497 1 Tablet(s) PO BID 10/21/192018 Inactive This refill negates all other refills of this medication metoprolol succinate ER 50 mg tablet,extended release 24 hr RxNorm: 992593 1 Tablet(s) PO daily 10/21/192018 Inactive This refill negates all other refills of this medication buspirone 7.5 mg tablet RxNorm: 521797 1 Tablet(s) PO BID 10/12/19 19 2018 Inactive cetirizine 10 mg tablet RxNorm: 6658800 1 Tablet(s) PO daily 09/28/20 18 2018 Inactive Guaiasorb DM 10 mg-100 mg/5 mL oral liquid RxNorm: 830194 10 Milliliter(s) PO As needed every 4 hr 09/24/20 18 2018 Inactive Vicks Vaporub 4.7 %-1.2 %-2.6 % topical ointment RxNorm: 2926773 1 Application TOP TID 09/24/20 18 2018 Inactive levmetamfetamine 50 mg nasal inhaler RxNorm: 1 Unit(s) NASAL Q3-4H 09/24/20 18 2017 Inactive sertraline 50 mg tablet RxNorm: 618470 1 Tablet(s) PO daily 09/09/20 18 2018 Inactive Please note dose trazodone 50 mg tablet RxNorm: 106123 1 Tablet(s) PO QHS 09/06/20 18 2018 Inactive sertraline 50 mg tablet RxNorm: 604149 1 Tablet(s) PO daily 09/06/20 18 2017 Inactive amoxicillin 500 mg tablet RxNorm: 870403 1 Tablet(s) PO Q12H 08/31/20 18 2017 Inactive albuterol sulfate 2.5 mg/3 mL (0.083 %) solution for nebulization RxNorm: 722719 1 Vial INH QID 08/10/20 18 2018 Inactive 60/box. Please do not fill early. Please do not auto refill. Prozac 10 mg capsule RxNorm: 811623 1 Capsule(s) PO daily 08/09/20 18 2017 Inactive buspirone 7.5 mg tablet RxNorm: 163279 1 Tablet(s) PO BID 08/09/20 18 2018 Inactive gabapentin 300 mg capsule RxNorm: 828634 1 Capsule(s) PO TID as needed 08/01/20 18 2018 Inactive hydrochlorothiazide 12.5 mg tablet RxNorm: 749154 1 Tablet(s) PO QAM 08/01/20 18 2018 Inactive ranitidine 150 mg tablet RxNorm: 697835 1 Tablet(s) PO BID 08/01/20 18 2018 Inactive Macrobid 100 mg capsule RxNorm: 974976 1 Capsule(s) PO Q12H 06/21/20 18 2017 Inactive Singulair 10 mg tablet RxNorm: 539310 1 Tablet(s) PO daily 06/14/20 18 2018 Inactive Ventolin HFA 90 mcg/actuation aerosol inhaler RxNorm: 4657500 2 Puff(s) INH QID 06/14/20 18 2018 Inactive Singulair 10 mg tablet RxNorm: 490669 1 Tablet(s) PO daily 06/14/20 18 2017 Inactive buspirone 7.5 mg tablet RxNorm: 606328 1 Tablet(s) PO BID 06/14/20 18 2017 Inactive Prozac 10 mg capsule RxNorm: 905085 1 Capsule(s) PO daily 06/14/20 18 2017 Inactive Neilmed Pediatric Sinus Rinse Refill packet RxNorm: 1 Unit Dose NASAL PRN 05/31/20 18 2021 Inactive diclofenac sodium 75 mg tablet,delayed release RxNorm: 289944 1 Tablet(s) PO BID 05/31/20 18 2017 Inactive lisinopril 2.5 mg tablet RxNorm: 767858 1 Tablet(s) PO daily 05/31/20 18 2017 Inactive metoprolol succinate ER 50 mg tablet,extended release 24 hr RxNorm: 624550 1 Tablet(s) PO daily 05/31/20 18 2017 Inactive levothyroxine 50 mcg tablet RxNorm: 482125 1 Tablet(s) PO daily 05/31/20 18 2017 Inactive TRUEplus Lancets 30 gauge RxNorm: 1 Lancets Miscellaneous QAM 05/31/20 18 2017 Inactive 100/box Ventolin HFA 90 mcg/actuation aerosol inhaler RxNorm: 279741 2 Puff(s) INH QID 05/31/20 18 2017 Inactive Aleve 220 mg capsule RxNorm: 0933685 1 Capsule(s) PO BID 05/31/20 18 2018 Inactive ranitidine 150 mg tablet RxNorm: 871727 1 Tablet(s) PO BID 05/31/20 18 2017 Inactive gabapentin 300 mg capsule RxNorm: 506654 1 Capsule(s) PO TID as needed 05/31/20 18 2017 Inactive atorvastatin 20 mg tablet RxNorm: 602521 1 Tablet(s) PO QHS 05/31/20 18 2017 Inactive True Metrix Glucose Test Strip RxNorm: 1 Test Strips Miscellaneous QAM 05/31/20 18 2017 Inactive 50/container Calcium 600-D3 Plus 600 mg calcium-800 unit-50 mg tablet RxNorm: 1 Tablet(s) PO daily take an additonal tablet for itching. 05/31/20 18 2017 Inactive hydrochlorothiazide 12.5 mg tablet RxNorm: 881008 1 Tablet(s) PO QAM 05/31/20 18 2017 Inactive Flintstones Complete (iron) 18 mg iron chewable tablet RxNorm: 1 Tablet(s) PO daily 05/31/20 18 2017 Inactive True Metrix Glucose Meter RxNorm: miscellaneous 08/17/20 19 2018 Inactive sertraline 50 mg tablet RxNorm: 199643 1 Tablet(s) PO daily 11/28/19 20 2019 Inactive loperamide 2 mg tablet RxNorm: 555343 oral 09/29/20 19 2018 Inactive d-mannose oral powder RxNorm: PO 18 2021 Inactive Medication Administered No Medication Administered data Vital Signs Date Vital 02/14/2019 Blood Pressure 1: 122/80 Code: 8480-6 BMI: 56.1 Code: 92612-3 Heart Rate 1: 102 bpm Height: 4'11 Code: 8302-2 Respiratory Rate: 20 bpm SpO2: 98% Temperature: 37.2 (C) / 99.0 (F) Weight: 278 lbs Code: 88438-1 Reason For Visit Reason For Visit Effective Dates Notes apneic events 02/14/2019 Encounters Encounter Performer Location Location Address Codes Magdi e HOME VISIT EST PATIENT Diagnosis: Apnea, not elsewhere classified[ICD10 : R06.81] Diagnosis: Body mass index (BMI) 50-59.9 , adult[ICD10: Z68.43] Rasta Palafox [place] Office [address] [facility] [address] [place] [address] CPT-4: 42785 02/14/2019 Plan of Care Planned Activity Notes Codes Status Date Visit Plan: R06.81-786.03 Apnea, not elsewhere classified Increase in awake apnea. Discussed could also have a neurological &/or psychiatric etiology, but will start with Pulmonology POC: 02/08/19- referred to [facility] at [address] [place] [address], p [phone], Z68.43-V85.43 Body mass index (BMI) 50-59.9 , adult 18 lb weight gain since November. Discussed could be contributing to, but is not causing awake apnea events. 02/14/2019 Patient Education: Patient Medication Summary Completed 02/14/2019 Appointment: Rasta Palafox WPtel: [address] [place], [place] [id number] 01/31/2019 Appointment: Rasta Palafox WPtel: [address] [place], [place] [id number] E420 12/27/2018 Referral: Pending Gynecology Referral Information Referral Processed Referral: Pending Pulmonolog y Referral Information Referral Processed Referral: Pending Psychiatry Referral Information Referral Initiated Referral: Pending Respirator y Services Referral Information Referral Initiated Referral: Pending Ophthalmology Referral Information Referral Initiated Referral: [facility] WPtel: [address] [place] [address] [address] [place] [address] [place] Fingernail Technician placed a call out to the patient to notify her that it has been recommended that she be seen by 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 Patient agreed to be seen, does not have a provider of choice and no transportation issues. Fingernail Technician faxed referral and clinical notes to [facility] in [place], [place] near the patient's home. Patient to [...] seen and prefers a provider in the [place] or [place] area. Fingernail Technician placed a call out to everyone listed in the area and the only location that was able to accept the patient's insurance was [facility] [address] [place] [address] and spoke with Maylin. Maylin asked that the patient's referral, face sheet and visit notes be faxed to . Fingernail Technician faxed over requested documents. Patient appointment confirmation letter generated and mailed to her home address. Patient to call to schedule an appointment. Processed Referral: [facility] WPtel: [address] [place] [address] Patient notified that it has been advised that she be seen by Neurology. Patient agreed to be seen and prefers to be seen by a provider in the [place], [place] area. Patient denies any concerns with transportation, and prefers to schedule her own appointment. Fingernail Technician placed a call out to [facility] and spoke with [...] . R06.81-786.03 Apnea, not e lsewhere classified Increase in awake apnea. Discussed could also have a neurological &/or psychiatric etiology, but will start with Pulmonology POC: 02/08/19- referred to [facility] at [place] [address] [place] [address], p [phone], Z68.43-V85.43 Body mass index (BMI) 50-59.9 , adult 18 lb weight gain since November. Discussed could be contributing to, but is not causing awake apnea events. 02/14/2019 Medical Equipment No Medical Equipment data Advance Directives No Advance Directive data
--- OUTSIDE RECORDS SUMMARY | 2019-03-30 20:00 | XMS_ITS | CCD ---
Author Name Ursula Palafox NP y Address [address] [place] [address] Phone Organization [facility] Phone Care Team Providers Care Operations Manager Station Name Role Phone Palomo KING, Anna Primary Care Provider Unav ailable Unavailable Chronic Care Management Unavaila ble Summary Purpose DataExchange Insurance Providers Payer name Policy type / Coverage type Covered green party ID Effective Begin Date Effective End Date [employer]KI [employer] [facility] [id number] Unknown Unknown Family history Mother Diagnosis Age [...] Unknown Disability 05/31/[address]: 964268769 Has never s moked or chewed tobacco 05/31/[address]: 463488508 Never drinks alco hol 05/31/2018 Has the [...] adult ICD-10: Z68.43 ICD-9: V85.43 05/30/2018 Active Chest pain, unspecified ICD-10: R07.9 ICD-9: 786.50 11/29/2018 Active Encounter for preprocedural cardiovascular examination ICD-10: Z01.810 ICD-9: V72.81 03/28/2019 Active Essential (primary) hypertension ICD-10: I10 ICD-9: 401.9 10/03/2018 Active Unspecified asthma, uncomplicated ICD-10 : J45.909 ICD-9: 493.90 08/08/2018 Active Dyspnea, unspecified ICD-10: R06.00 ICD-9: 786.09 [...] mood ICD-10: F43.23 ICD-9: 309.28 09/05/2018 Active Headache ICD-10: R51 ICD-9: 784.0 10/03/2018 [...] Fill Instructions gabapentin 300 mg capsule RxNorm: 405340 1 Capsule(s) PO TID as needed 02/01/20 19 2018 Inactive True Metrix Glucose Test Strip RxNorm: 1 Test Strips Miscellaneous QAM 02/01/20 19 2018 Inactive 100/container Alcohol Prep Pads RxNorm: 664809 1 Patch TOP QAM 02/01/20 19 2018 Inactive TRUEplus Lancets 30 gauge RxNorm: 1 Lancets Miscellaneous QAM 02/01/20 19 2018 Inactive 100/box lisinopril 2.5 mg tablet RxNorm: 009210 1 Tablet(s) PO daily 12/28/192018 Inactive ranitidine 150 mg tablet RxNorm: 116834 1 Tablet(s) PO BID 10/21/192018 Inactive This refill negates all other refills of this medication albuterol sulfate 2.5 mg/3 mL (0.083 %) solution for nebulization RxNorm: 550000 1 Vial INH QID 10/21/19 19 2018 Inactive 60/box. This refill negates all other refills of this medication. Please do not fill early. Please do not auto refill. atorvastatin 20 mg tablet RxNorm: 346807 1 Tablet(s) PO QHS 10/21/192018 Inactive This refill negates all other refills of this medication Ventolin HFA 90 mcg/actuation aerosol inhaler RxNorm: 228516 2 Puff(s) INH QID 10/21/192018 Inactive Please do not fill early. Please do not auto refill. This refill negates all other refills of this medication Calcium 600-D3 Plus 600 mg calcium-800 unit-50 mg tablet RxNorm: 1 Tablet(s) PO daily take an additonal tablet for itching. 10/21/192018 Inactive This refill negates all other refills of this medication Singulair 10 mg tablet RxNorm: 997834 1 Tablet(s) PO daily 10/21/192018 Inactive This refill negates all other refills of this medication buspirone 7.5 mg tablet RxNorm: 622543 1 Tablet(s) PO BID 10/21/192018 Inactive This refill negates all other refills of this medication hydrochlorothiazide 12.5 mg tablet RxNorm: 910573 1 Tablet(s) PO QAM 10/21/192018 Inactive levothyroxine 50 mcg tablet RxNorm: 436547 1 Tablet(s) PO daily 10/21/192018 Inactive This refill negates all other refills of this medication cetirizine 10 mg tablet RxNorm: 1255131 1 Tablet(s) PO daily 10/21/192018 Inactive This [...] this medication gabapentin 300 mg capsule RxNorm: 772244 1 Capsule(s) PO TID as needed 10/21/192018 Inactive trazodone 50 mg tablet RxNorm: 358411 1 Tablet(s) PO QHS 10/21/192018 Inactive This refill negates all other refills of this medication diclofenac sodium 75 mg tablet,delayed release RxNorm: 718968 1 Tablet(s) PO BID 10/21/19 19 2018 Inactive This refill negates all other refills of this medication metoprolol succinate ER 50 mg tablet,extended release 24 hr RxNorm: 369991 1 Tablet(s) PO daily 10/21/19 19 2018 Inactive This refill negates all other refills of this medication buspirone 7.5 mg tablet RxNorm: 028994 1 Tablet(s) PO BID 10/12/19 19 2018 Inactive cetirizine 10 mg tablet RxNorm: 4819926 1 Tablet(s) PO daily 09/28/20 18 2018 Inactive Guaiasorb DM 10 mg-100 mg/5 mL oral liquid RxNorm: 125052 10 Milliliter(s) PO As needed every 4 hr 09/24/20 18 2018 Inactive Vicks Vaporub 4.7 %-1.2 %-2.6 % topical ointment RxNorm: 2767606 1 Application TOP TID 09/24/20 18 2018 Inactive levmetamfetamine 50 mg nasal inhaler RxNorm: 1 Unit(s) NASAL Q3-4H 09/24/20 18 2017 Inactive sertraline 50 mg tablet RxNorm: 105785 1 Tablet(s) PO daily 09/09/20 18 2018 Inactive Please note dose trazodone 50 mg tablet RxNorm: 093180 1 Tablet(s) PO QHS 09/06/20 18 2018 Inactive sertraline 50 mg tablet RxNorm: 787366 1 Tablet(s) PO daily 09/06/20 18 2017 Inactive amoxicillin 500 mg tablet RxNorm: 210765 1 Tablet(s) PO Q12H 08/31/20 18 2017 Inactive albuterol sulfate 2.5 mg/3 mL (0.083 %) solution for nebulization RxNorm: 707397 1 Vial INH QID 08/10/20 18 2018 Inactive 60/box. Please do not fill early. Please do not auto refill. Prozac 10 mg capsule RxNorm: 871523 1 Capsule(s) PO daily 08/09/20 18 2017 Inactive buspirone 7.5 mg tablet RxNorm: 055525 1 Tablet(s) PO BID 08/09/20 18 2018 Inactive gabapentin 300 mg capsule RxNorm: 187329 1 Capsule(s) PO TID as needed 08/01/20 18 2018 Inactive hydrochlorothiazide 12.5 mg tablet RxNorm: 130394 1 Tablet(s) PO QAM 08/01/20 18 2018 Inactive ranitidine 150 mg tablet RxNorm: 746426 1 Tablet(s) PO BID 08/01/20 18 2018 Inactive Macrobid 100 mg capsule RxNorm: 248985 1 Capsule(s) PO Q12H 06/21/20 18 2017 Inactive Singulair 10 mg tablet RxNorm: 927304 1 Tablet(s) PO daily 06/14/20 18 2018 Inactive Ventolin HFA 90 mcg/actuation aerosol inhaler RxNorm: 8157361 2 Puff(s) INH QID 06/14/20 18 2018 Inactive Singulair 10 mg tablet RxNorm: 917414 1 Tablet(s) PO daily 06/14/20 18 2017 Inactive buspirone 7.5 mg tablet RxNorm: 600074 1 Tablet(s) PO BID 06/14/20 18 2017 Inactive Prozac 10 mg capsule RxNorm: 188717 1 Capsule(s) PO daily 06/14/20 18 2017 Inactive Neilmed Pediatric Sinus Rinse Refill packet RxNorm: 1 Unit Dose NASAL PRN 05/31/20 18 2021 Inactive diclofenac sodium 75 mg tablet,delayed release RxNorm: 686309 1 Tablet(s) PO BID 05/31/20 18 2017 Inactive lisinopril 2.5 mg tablet RxNorm: 299437 1 Tablet(s) PO daily 05/31/20 18 2017 Inactive metoprolol succinate ER 50 mg tablet,extended release 24 hr RxNorm: 420348 1 Tablet(s) PO daily 05/31/20 18 2017 Inactive levothyroxine 50 mcg tablet RxNorm: 448265 1 Tablet(s) PO daily 05/31/20 18 2017 Inactive TRUEplus Lancets 30 gauge RxNorm: 1 Lancets Miscellaneous QAM 05/31/20 18 2017 Inactive 100/box Ventolin HFA 90 mcg/actuation aerosol inhaler RxNorm: 965300 2 Puff(s) INH QID 05/31/20 18 2017 Inactive Aleve 220 mg capsule RxNorm: 5522767 1 Capsule(s) PO BID 05/31/20 18 2018 Inactive ranitidine 150 mg tablet RxNorm: 347201 1 Tablet(s) PO BID 05/31/20 18 2017 Inactive gabapentin 300 mg capsule RxNorm: 988364 1 Capsule(s) PO TID as needed 05/31/20 18 2017 Inactive atorvastatin 20 mg tablet RxNorm: 700545 1 Tablet(s) PO QHS 05/31/20 18 2017 Inactive True Metrix Glucose Test Strip RxNorm: 1 Test Strips [facility] QAM 05/31/20 18 2017 Inactive 50/container Calcium 600-D3 Plus 600 mg calcium-800 unit-50 mg tablet RxNorm: 1 Tablet(s) PO daily take an additonal tablet for itching. 05/31/20 18 2017 Inactive hydrochlorothiazide 12.5 mg tablet RxNorm: 784221 1 Tablet(s) PO QAM 05/31/20 18 2017 Inactive Flintstones Complete (iron) 18 mg iron chewable tablet RxNorm: 1 Tablet(s) PO daily 05/31/20 18 2017 Inactive True Metrix Glucose Meter RxNorm: miscellaneous 08/17/20 19 2018 Inactive sertraline 50 mg tablet RxNorm: 564360 1 Tablet(s) PO daily 11/28/19 20 2019 Inactive loperamide 2 mg tablet RxNorm: 169095 oral 09/29/20 19 2018 Inactive d-mannose oral powder RxNorm: PO 18 2021 Inactive Medication Administered No Medication Administered data Procedures Procedure Codes Date Urinalysis, dip stick CPT-4: 51152 03/28/2019 Urinalysis, dip stick Leukocytes:/Moderate, Nitrite:/Negative, Urobilinogen:/Normal, Protein:/Negative, Ph:/5.0, Blood:/Negative, Specific [place]:/1.030, Ketone:/5 points, Bilirubin:/Small, Glucose:/10 CPT-4: 93494Olcsijm 03/28/2019 Vital Signs Date Vital 03/28/2019 Blood Pressure 1: 128/88 Code: 8480-6 BMI: 57.1 Code: 04681-1 Heart Rate 1: 88 bpm Height: 4'11 Code: 8302-2 Respiratory Rate: 16 bpm SpO2: 99% Temperature: 36.3 (C) / 97.4 (F) Weight: 282 lbs 13 oz Code: 34767-6 Reason For Visit Reason For Visit Effective Dates Notes asthma disease 03/28/2019 apneic events 03/28/2019 Encounters Encounter Performer Location Location Address Codes Magdi e HOME VISIT EST PATIENT Diagnosis: Unspecified asthma, uncomplicated[ICD10: J45.909] Diagnosis: Apnea, not elsewhere classified[ICD10: R06.81] Diagnosis: Body mass index (BMI) 50-59.9 , adult[ICD10: Z68.43] Diagnosis: Essential (primary) hypertension[ICD10: I10] Diagnosis: Chest pain, unspecified[ICD10: R07.9] Diagnosis: Encounter for preprocedural cardiovascular examination[ICD10: Z01.810] Rasta Palafox [place] [facility] [address] [facility] [address] [place], [place] [address] CPT-4: 67526 9 Plan of Care Planned Activity Notes Codes Status Date Visit Plan: J45.909-493.90 Unspecified asthma, uncomplicated Diagnosed at [facility] on 03/21/19. No medications Rx'd. Using abuterol inhaler QID. Allergic to methylprednisone POC: request that this new diagnosis evaluated by Pulmonology at initial visit on 04/09/19 R06.81-786.03 Apnea, not elsewhere classified Increase in awake apnea. Discussed could also have a neurological &/or psychiatric etiology, but will start with Pulmonology POC: reschedule to 04/09/19, original 02/08/19- referred to [facility] at [address] [place] [address], p [phone], Z68.43-V85.43 Body mass index (BMI) 50-59.9 , adult 03/28/19: 282.8 lbs, +4 since last visit. 02/14/19: 278 lbs, +4 lbs since last visit 01/31/19: 274 lbs, +5 lbs since last visit 12/27/18: 269 lbs Discussed could be contributing to, but is not causing awake apnea events. I10-401.9 Essential (primary) hypertension Chronic, stable, uncontrolled, 128/88, for age & DM. lisinopril 2.5 mg tablet 1 Tablet(s) PO daily POC: will evaluate the above B/P for outlier versus trend at next visit(s) & will modify HTN POC PRN. R07.9-786.50 Chest pain, unspecified Z01.810-V72.81 Encounter for pre-procedural cardiovascular examination POC referral to cardiology for chest pain primarily & Gynecology's request for cardiac clearance w/ probable stress test for LTL. 03/28/2019 Patient Education: Patient Medication Summary Completed 03/28/2019 Patient Education: Asthma Completed 03/28/2019 Care Plan: Cardiology Referral SNOMED-CT : [id number] Pending 03/28/2019 Appointment: Rasta Palafox WPtel: [address] [place], [place] [phone] [place] [address] 02/14/2019 Appointment: Rasta Palafox WPtel: [address] [place], [place] [id number] 01/31/2019 Appointment: Rasta Palafox WPtel: [address] [place], [place] [phone] [id number] 12/27/2018 Referral: Pending Gynecology Referral Information Referral Processed Referral: Pending Pulmonology Referral Information Referral Processed Referral: Pending Psychiatry Referral Information Referral Initiated Referral: Pending Respiratory Services Referral Information Referral Initiated Referral: Pending Ophthalmology Referral Information Referral Initiated Referral: [facility] WPtel: [address] [address] [place] [employer] Director placed a call out to the patient to notify her that it has been recommended that she be seen by 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 Patient agreed to be seen, does not have a provider of choice and no transportation issues. Youth Ministry Director faxed referral and clinical notes to [facility] in [place], [place] near the patient's home. Patient to [...] seen and prefers a provider in the [place] or [place] area. Youth Ministry Director placed a call out to everyone listed in the area and the only location that was able to accept the patient's insurance was [place] [address] [place] [address] and spoke with Maylin. Maylin asked that the patient's referral, face sheet and visit notes be faxed to . Youth Ministry Director faxed over requested documents. Patient appointment confirmation letter generated and mailed to her home address. Patient to call to schedule an appointment. Processed Referral: [facility] WPtel: [address] [place] [address] Patient notified that it has been advised that she be seen by Neurology. Patient agreed to be seen and prefers to be seen by a provider in the [place], [place] area. Patient denies any concerns with transportation, and prefers to schedule her own appointment. Youth Ministry Director placed a call out to [facility] and spoke with Neeraj Mcfarland: who confirmed that their office is able to accept new patients and the patient's insurance. After confirming the providers fax number, policy writer typist faxed over the patient's referral, and most [...] Information Referral Initiated Instructions Comment Date . J45.909-493.90 Unspecified asthma, uncomplicated Diagnosed at [facility] on 03/21/19. No medications Rx'd. Using abuterol inhaler QID. Allergic to methylprednisone POC: request that this new diagnosis evaluated by Pulmonology at initial visit on 04/09/19 R06.81-786.03 Apnea, not elsewhere classified Increase in awake apnea. Discussed could also have a neurological &/or psychiatric etiology, but will start with Pulmonology POC: reschedule to 04/09/19, original 02/08/19- referred to [facility] at [address] [place] [address], p [phone], Z68.43-V85.43 Body mass index (BMI) 50-59.9 , adult 03/28/19: 282.8 lbs, +4 since last visit. 02/14/19: 278 lbs, +4 lbs since last visit 01/31/19: 274 lbs, +5 lbs since last visit 12/27/18: 269 lbs Discussed could be contributing to, but is not causing awake apnea events. I10-401.9 Essential (primary) hypertension Chronic, stable, uncontrolled, 128/88, for age & DM. lisinopril 2.5 mg tablet; 1 Tablet(s) PO daily POC: will evaluate the above B/P for outlier versus trend at next visit(s) & will modify HTN POC PRN. R07.9-786.50 Chest pain, unspecified Z01.810-V72.81 Encounter for pre-procedural cardiovascular examination POC referral to cardiology for chest pain primarily & Gynecology's request for cardiac clearance w/ probable stress test for LTL. 03/28/2019 Medical Equipment No Medical Equipment data Advance Directives No Advance Directive data
--- OUTSIDE RECORDS SUMMARY | 2019-04-03 20:00 | XMS_ITS | CCD ---
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 Soft Drink Powder Mixer Name Role Phone Palomo KING, Anna Primary Care Provider Unav ailable Unavailable Chronic Care Management Unavaila ble Summary Purpose DataExchange Insurance Providers Payer name Policy type / Coverage type Covered libertarian ID Effective Begin Date Effective End Date SUKI MAYO [id number] Unknown Unknown Family history Mother Diagnosis Age [...] Unknown Disability 05/31/[address]: 009247447 Has never s moked or chewed tobacco 05/31/[address]: 654698539 Never drinks alco hol 05/31/2018 Has the [...] ICD -10: Z13.9 ICD-9: V82.9 09/05/2018 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-steroidal anti-inflammatories [...] 2018 Inactive 100/container Alcohol Prep Pads RxNorm: 863055 1 Patch TOP QA 02/01/202018 Inactive TRUEplus Lancets 30 gauge RxNorm: 1 Lancets Miscellaneous QAM 02/01/20 19 2018 Inactive 100/box gabapentin 300 mg capsule RxNorm: 187905 1 Capsule(s) PO TID as needed 02/01/20 19 2018 Inactive lisinopril 2.5 mg tablet RxNorm: 234272 1 Tablet(s) PO daily 12/28/192018 Inactive ranitidine 150 mg tablet RxNorm: 814203 1 Tablet(s) PO BID 10/21/192018 Inactive This refill negates all other refills of this medication albuterol sulfate 2.5 mg/3 mL (0.083 %) solution for nebulization RxNorm: 974022 1 Vial INH QID 10/21/19 19 2018 Inactive 60/box. This refill negates all other refills of this medication. Please do not fill early. Please do not auto refill. atorvastatin 20 mg tablet RxNorm: 874772 1 Tablet(s) PO QHS 10/21/192018 Inactive This refill negates all other refills of this medication Ventolin HFA 90 mcg/actuation aerosol inhaler RxNorm: 282403 2 Puff(s) INH QID 10/21/192018 Inactive Please do not fill early. Please do not auto refill. This refill negates all other refills of this medication Calcium 600-D3 Plus 600 mg calcium-800 unit-50 mg tablet RxNorm: 1 Tablet(s) PO daily take an additonal tablet for itching. 10/21/192018 Inactive This refill negates all other refills of this medication Singulair 10 mg tablet RxNorm: 060668 1 Tablet(s) PO daily 10/21/19 19 2018 Inactive This refill negates all other refills of this medication buspirone 7.5 mg tablet RxNorm: 990918 1 Tablet(s) PO BID 10/21/19 19 2018 Inactive This refill negates all other refills of this medication hydrochlorothiazide 12.5 mg tablet RxNorm: 692194 1 Tablet(s) PO QAM 10/21/19 19 2018 Inactive levothyroxine 50 mcg tablet RxNorm: 899981 1 Tablet(s) PO daily 10/21/192018 Inactive This refill negates all other refills of this medication cetirizine 10 mg tablet RxNorm: 4193125 1 Tablet(s) PO daily 10/21/192018 Inactive This refill negates all other refills of this medication. Please do not auto refill levmetamfetamine 50 mg nasal inhaler RxNorm: 1 Unit(s) NASAL Q3-4H Do not use more than every 3 hours or 8 times/24hours 10/21/192018 Inactive Please do not auto refill. This refill negates all other refills of this medication gabapentin 300 mg capsule RxNorm: 095367 1 Capsule(s) PO TID as needed 10/21/19 19 2018 Inactive trazodone 50 mg tablet RxNorm: 143113 1 Tablet(s) PO QHS 10/21/19 19 2018 Inactive This refill negates all other refills of this medication diclofenac sodium 75 mg tablet,delayed release RxNorm: 565347 1 Tablet(s) PO BID 10/21/19 19 2018 Inactive This refill negates all other refills of this medication metoprolol succinate ER 50 mg tablet,extended release 24 hr RxNorm: 242774 1 Tablet(s) PO daily 10/21/19 19 2018 Inactive This refill negates all other refills of this medication Flintstones Complete (iron) 18 mg iron chewable tablet RxNorm: 1 Tablet(s) PO daily 10/21/19 19 2018 Inactive This refill negates all other refills of this medication buspirone 7.5 mg tablet RxNorm: 487829 1 Tablet(s) PO BID 10/12/19 19 2018 Inactive cetirizine 10 mg tablet RxNorm: 4289891 1 Tablet(s) PO daily 09/28/20 18 2018 Inactive Guaiasorb DM 10 mg-100 mg/5 mL oral liquid RxNorm: 185943 10 Milliliter(s) PO As needed every 4 hr 09/24/20 18 2018 Inactive Vicks Vaporub 4.7 %-1.2 %-2.6 % topical ointment RxNorm: 9454489 1 Application TOP TID 09/24/20 18 2018 Inactive levmetamfetamine 50 mg nasal inhaler RxNorm: 1 Unit(s) NASAL Q3-4H 09/24/20 18 2017 Inactive sertraline 50 mg tablet RxNorm: 929178 1 Tablet(s) PO daily 09/09/20 18 2018 Inactive Please note dose trazodone 50 mg tablet RxNorm: 750899 1 Tablet(s) PO QHS 09/06/20 18 2018 Inactive sertraline 50 mg tablet RxNorm: 902546 1 Tablet(s) PO daily 09/06/20 18 2017 Inactive amoxicillin 500 mg tablet RxNorm: 268644 1 Tablet(s) PO Q12H 08/31/20 18 2017 Inactive albuterol sulfate 2.5 mg/3 mL (0.083 %) solution for nebulization RxNorm: 062591 1 Vial INH QID 08/10/20 18 2018 Inactive 60/box. Please do not fill early. Please do not auto refill. Prozac 10 mg capsule RxNorm: 273695 1 Capsule(s) PO daily 08/09/20 18 2017 Inactive buspirone 7.5 mg tablet RxNorm: 383689 1 Tablet(s) PO BID 08/09/20 18 2018 Inactive gabapentin 300 mg capsule RxNorm: 336485 1 Capsule(s) PO TID as needed 08/01/20 18 2018 Inactive hydrochlorothiazide 12.5 mg tablet RxNorm: 991242 1 Tablet(s) PO QAM 08/01/20 18 2018 Inactive ranitidine 150 mg tablet RxNorm: 239842 1 Tablet(s) PO BID 08/01/20 18 2018 Inactive Macrobid 100 mg capsule RxNorm: 743329 1 Capsule(s) PO Q12H 06/21/20 18 2017 Inactive Singulair 10 mg tablet RxNorm: 775279 1 Tablet(s) PO daily 06/14/20 18 2018 Inactive Ventolin HFA 90 mcg/actuation aerosol inhaler RxNorm: 4058383 2 Puff(s) INH QID 06/14/20 18 2018 Inactive Singulair 10 mg tablet RxNorm: 271330 1 Tablet(s) PO daily 06/14/20 18 2017 Inactive buspirone 7.5 mg tablet RxNorm: 790251 1 Tablet(s) PO BID 06/14/20 18 2017 Inactive Prozac 10 mg capsule RxNorm: 000148 1 Capsule(s) PO daily 06/14/20 18 2017 Inactive Neilmed Pediatric Sinus Rinse Refill packet RxNorm: 1 Unit Dose NASAL PRN 05/31/20 18 2021 Inactive diclofenac sodium 75 mg tablet,delayed release RxNorm: 762907 1 Tablet(s) PO BID 05/31/20 18 2017 Inactive lisinopril 2.5 mg tablet RxNorm: 889920 1 Tablet(s) PO daily 05/31/20 18 2017 Inactive metoprolol succinate ER 50 mg tablet,extended release 24 hr RxNorm: 313928 1 Tablet(s) PO daily 05/31/20 18 2017 Inactive levothyroxine 50 mcg tablet RxNorm: 977983 1 Tablet(s) PO daily 05/31/20 18 2017 Inactive TRUEplus Lancets 30 gauge RxNorm: 1 Lancets Miscellaneous QAM 05/31/20 18 2017 Inactive 100/box Ventolin HFA 90 mcg/actuation aerosol inhaler RxNorm: 148229 2 Puff(s) INH QID 05/31/20 18 2017 Inactive Aleve 220 mg capsule RxNorm: 6182631 1 Capsule(s) PO BID 05/31/20 18 2018 Inactive ranitidine 150 mg tablet RxNorm: 527594 1 Tablet(s) PO BID 05/31/20 18 2017 Inactive gabapentin 300 mg capsule RxNorm: 481115 1 Capsule(s) PO TID as needed 05/31/20 18 2017 Inactive atorvastatin 20 mg tablet RxNorm: 343121 1 Tablet(s) PO QHS 05/31/20 18 2017 Inactive True Metrix Glucose Test Strip RxNorm: 1 Test Strips Miscellaneous QAM 05/31/20 18 2017 Inactive 50/container Calcium 600-D3 Plus 600 mg calcium-800 unit-50 mg tablet RxNorm: 1 Tablet(s) PO daily take an additonal tablet for itching. 05/31/20 18 2017 Inactive hydrochlorothiazide 12.5 mg tablet RxNorm: 730049 1 Tablet(s) PO QAM 05/31/20 18 2017 Inactive Flintstones Complete (iron) 18 mg iron chewable tablet RxNorm: 1 Tablet(s) PO daily 05/31/20 18 2017 Inactive True Metrix Glucose Meter RxNorm: miscellaneous 08/17/20 19 2018 Inactive sertraline 50 mg tablet RxNorm: 472997 1 Tablet(s) PO daily 11/28/19 20 2019 Inactive loperamide 2 mg tablet RxNorm: 636176 oral 09/29/20 19 2018 Inactive d-mannose oral powder RxNorm: PO 18 2021 Inactive Medication Administered No Medication Administered data Procedures Procedure Codes Date Urinalysis, dip stick CPT-4: 84892 03/28/2019 Reason For Visit No Reason For Visit data Plan of Care Planned Activity Notes Codes Status Date Referral: Pending Gynecology Referral Information Referral Processed Referral: Pending Pulmonolog y Referral Information Referral Processed Referral: Pending Psychiatry Referral Information Referral Initiated Referral: Pending Respirator y Services Referral Information Referral Initiated Referral: Pending Ophthalmol ogy Referral Information Referral Initiated Referral: [facility] WPtel: [address] [facility] [address] Certified Medical Technician Assistant placed a call out to the patient to notify her that it has been recommended that she be seen by 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 Patient agreed to be seen, does not have a provider of choice and no transportation issues. Certified Medical Technician Assistant faxed referral and clinical notes to [facility] in [place], [place] near the patient's home. Patient to [...] seen and prefers a provider in the [place] or [place] area. Certified Medical Technician Assistant placed a call out to everyone listed in the area and the only location that was able to accept the patient's insurance was [address] [address] and spoke with Maylin. Maylin asked that the patient's referral, face sheet and visit notes be faxed to . Certified Medical Technician Assistant faxed over requested documents. Patient appointment confirmation letter generated and mailed to her home address. Patient to call to schedule an appointment. Processed Referral: [facility] WPtel: [address] [facility] [address] [place], [place] [id number] Patient notified that it has been advised that she be seen by Neurology. Patient agreed to be seen and prefers to be seen by a provider in the [place], [place] area. Patient denies any concerns with transportation, and prefers to schedule her own appointment. Certified Medical Technician Assistant placed a call out to [facility] and spoke with Neeraj P: who confirmed that their office is able to accept new patients and the patient's insurance. After confirming the providers fax number, ticket writer faxed over the patient's referral, and [...]
--- OUTSIDE RECORDS SUMMARY | 2019-04-24 20:00 | XMS_ITS | CCD ---
Author Name Dr Lacey Oropeza DO Address [address] [place] [address] Phone Organization [facility] Phone Care Team Providers Care Health Administration Teacher Name Role Phone Palomo CONCRETE VAULT MAKER, Anna Primary Care Provider Unav ailable Unavailable Chronic Care Management Unavaila ble Summary Purpose DataExchange Insurance Providers Payer name Policy type / Coverage type Covered alliance party ID Effective Begin Date Effective End Date [employer] [facility] [id number] Unknown Unknown Family history Mother Diagnosis Age [...] Unknown Disability 05/31/[address]: 180930764 Has never s moked or chewed tobacco 05/31/[address]: 668328680 Never drinks alco hol 05/31/2018 Has the [...] atus Encounter for immunization ICD-10: Z23 ICD-9: V03.9 04/25/2019 Active Encounter for screening for malignant neoplasm of cervix ICD-10: Z12.4 ICD-9: V76.2 04/25/2019 Active Hypertensive heart disease w ith heart failure ICD-10: I11.0 ICD-9: 402.91 04/25/2019 Active Other chcf (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 ICD-10: Z79.899 ICD-9: V58.69 04/25/2019 Active Type 2 diabetes mellitus wit hout complications ICD-10: E11.9 ICD-9: 250.00 10/03/2018 Active Unspecified asthma, uncomplicated ICD-10 : J45.909 ICD-9: 493.90 08/08/2018 Active Apnea, not elsewhere classified ICD-10: R06.81 ICD-9: 786.03 01/31/2019 Active Body mass index (BMI) 50-59. 9 , adult ICD-10: Z68.43 ICD-9: V85.43 05/30/2018 Active Chest pain, unspecified ICD-10: R07.9 ICD-9: 786.50 11/29/2018 Active Encounter for preprocedural cardiovascular examination ICD-10: Z01.810 ICD-9: V72.81 03/28/2019 Active Essential (primary) hypertension ICD-10: I10 ICD-9: 401.9 10/03/2018 Active Dyspnea, unspecified ICD-10: R06.00 ICD-9: 786.09 [...] ICD -10: Z13.9 ICD-9: V82.9 09/05/2018 Active nursing home (current) use of non-steroidal anti-inflammatories (NSAID) ICD-10: Z79.1 ICD-9: V58.64 06/13/2018 Active Hyperlipidemia, unspecified ICD-10: E78. 5 ICD-9: 272.4 05/30/2018 Active Medications Medication Codes Instructions Start Date Stop Date Status Fill Instructions César Complete (iron) 18 mg iron chewable tablet RxNorm: 1 Tablet(s) PO daily 04/04/202021 Inactive This refill negates all other refills of this medication True Metrix Glucose Test Strip RxNorm: 1 Test Strips Miscellaneous [facility] 02/01/202018 Inactive 100/container Alcohol Prep Pads RxNorm: 990456 1 Patch TOP [facility] 02/01/202018 Inactive TRUEplus Lancets 30 gauge RxNorm: 1 Lancets Miscellaneous [facility] 02/01/20 19 2018 Inactive 100/box gabapentin 300 mg capsule RxNorm: 902233 1 Capsule(s) PO TID as needed 02/01/202018 Inactive lisinopril 2.5 mg tablet RxNorm: 293405 1 Tablet(s) PO daily 12/28/192018 Inactive buspirone 7.5 mg tablet RxNorm: 281637 1 Tablet(s) PO BID 10/21/192018 Inactive This refill negates all other refills of this medication ranitidine 150 mg tablet RxNorm: 909756 1 Tablet(s) PO BID 10/21/192018 Inactive This refill negates all other refills of this medication albuterol sulfate 2.5 mg/3 mL (0.083 %) solution for nebulization RxNorm: 560025 1 Vial INH QID 10/21/19 19 2018 [...] this medication gabapentin 300 mg capsule RxNorm: 827401 1 Capsule(s) PO TID as needed 10/21/19 19 2018 Inactive atorvastatin 20 mg tablet RxNorm: 342334 1 Tablet(s) PO QHS 10/21/192018 Inactive This refill negates all other refills of this medication trazodone 50 mg tablet RxNorm: 920325 1 Tablet(s) PO QHS 10/21/192018 Inactive This refill negates all other refills of this medication Ventolin HFA 90 mcg/actuation aerosol inhaler RxNorm: 731639 2 Puff(s) INH QID 10/21/192018 Inactive Please do not fill early. Please do not auto refill. This refill negates all other refills of this medication Calcium 600-D3 Plus 600 mg calcium-800 unit-50 mg tablet RxNorm: 1 Tablet(s) PO daily take an additonal tablet for itching. 10/21/192018 Inactive This refill negates all other refills of this medication Singulair 10 mg tablet RxNorm: 689710 1 Tablet(s) PO daily 10/21/192018 Inactive This refill negates all other refills of this medication diclofenac sodium 75 mg tablet,delayed release RxNorm: 414359 1 Tablet(s) PO BID 10/21/19 19 2018 Inactive This refill negates all other refills of this medication hydrochlorothiazide 12.5 mg tablet RxNorm: 672255 1 Tablet(s) PO QAM 10/21/192018 Inactive metoprolol succinate ER 50 mg tablet,extended release 24 hr RxNorm: 487920 1 Tablet(s) PO daily 10/21/19 19 2018 Inactive This refill negates all other refills of this medication levothyroxine 50 mcg tablet RxNorm: 317067 1 Tablet(s) PO daily 10/21/19 19 2018 Inactive This refill negates all other refills of this medication cetirizine 10 mg tablet RxNorm: 0757433 1 Tablet(s) PO daily 10/21/19 19 2018 Inactive This refill negates all other refills of this medication. Please do not auto refill Flintstones Complete (iron) 18 mg iron chewable tablet RxNorm: 1 Tablet(s) PO daily 10/21/19 19 2018 Inactive This refill negates all other refills of this medication buspirone 7.5 mg tablet RxNorm: 486580 1 Tablet(s) PO BID 10/12/192018 Inactive cetirizine 10 mg tablet RxNorm: 9432206 1 Tablet(s) PO daily 09/28/20 18 2018 Inactive Guaiasorb DM 10 mg-100 mg/5 mL oral liquid RxNorm: 859179 10 Milliliter(s) PO As needed every 4 hr 09/24/20 18 2018 Inactive Vicks Vaporub 4.7 %-1.2 %-2.6 % topical ointment RxNorm: 0868497 1 Application TOP TID 09/24/20 18 2018 Inactive levmetamfetamine 50 mg nasal inhaler RxNorm: 1 Unit(s) NASAL Q3-4H 09/24/20 18 2017 Inactive sertraline 50 mg tablet RxNorm: 565138 1 Tablet(s) PO daily 09/09/20 18 2018 Inactive Please note dose trazodone 50 mg tablet RxNorm: 003254 1 Tablet(s) PO QHS 09/06/20 18 2018 Inactive sertraline 50 mg tablet RxNorm: 204097 1 Tablet(s) PO daily 09/06/20 18 2017 Inactive amoxicillin 500 mg tablet RxNorm: 963549 1 Tablet(s) PO Q12H 08/31/20 18 2017 Inactive albuterol sulfate 2.5 mg/3 mL (0.083 %) solution for nebulization RxNorm: 284212 1 Vial INH QID 08/10/20 18 2018 Inactive 60/box. Please do not fill early. Please do not auto refill. Prozac 10 mg capsule RxNorm: 899334 1 Capsule(s) PO daily 08/09/20 18 2017 Inactive buspirone 7.5 mg tablet RxNorm: 469617 1 Tablet(s) PO BID 08/09/20 18 2018 Inactive gabapentin 300 mg capsule RxNorm: 028491 1 Capsule(s) PO TID as needed 08/01/20 18 2018 Inactive hydrochlorothiazide 12.5 mg tablet RxNorm: 450131 1 Tablet(s) PO QAM 08/01/20 18 2018 Inactive ranitidine 150 mg tablet RxNorm: 531284 1 Tablet(s) PO BID 08/01/20 18 2018 Inactive Macrobid 100 mg capsule RxNorm: 854849 1 Capsule(s) PO Q12H 06/21/20 18 2017 Inactive Singulair 10 mg tablet RxNorm: 192663 1 Tablet(s) PO daily 06/14/20 18 2018 Inactive Ventolin HFA 90 mcg/actuation aerosol inhaler RxNorm: 7957844 2 Puff(s) INH QID 06/14/20 18 2018 Inactive Singulair 10 mg tablet RxNorm: 259288 1 Tablet(s) PO daily 06/14/20 18 2017 Inactive buspirone 7.5 mg tablet RxNorm: 299599 1 Tablet(s) PO BID 06/14/20 18 2017 Inactive Prozac 10 mg capsule RxNorm: 038730 1 Capsule(s) PO daily 06/14/20 18 2017 Inactive Neilmed Pediatric Sinus Rinse Refill packet RxNorm: 1 Unit Dose NASAL PRN 05/31/20 18 2021 Inactive diclofenac sodium 75 mg tablet,delayed release RxNorm: 786768 1 Tablet(s) PO BID 05/31/20 18 2017 Inactive lisinopril 2.5 mg tablet RxNorm: 019563 1 Tablet(s) PO daily 05/31/20 18 2017 Inactive metoprolol succinate ER 50 mg tablet,extended release 24 hr RxNorm: 548214 1 Tablet(s) PO daily 05/31/20 18 2017 Inactive levothyroxine 50 mcg tablet RxNorm: 425062 1 Tablet(s) PO daily 05/31/20 18 2017 Inactive TRUEplus Lancets 30 gauge RxNorm: 1 Lancets Miscellaneous QAM 05/31/20 18 2017 Inactive 100/box Ventolin HFA 90 mcg/actuation aerosol inhaler RxNorm: 380573 2 Puff(s) INH QID 05/31/20 18 2017 Inactive Aleve 220 mg capsule RxNorm: 0221808 1 Capsule(s) PO BID 05/31/20 18 2018 Inactive ranitidine 150 mg tablet RxNorm: 066058 1 Tablet(s) PO BID 05/31/20 18 2017 Inactive gabapentin 300 mg capsule RxNorm: 804953 1 Capsule(s) PO TID as needed 05/31/20 18 2017 Inactive atorvastatin 20 mg tablet RxNorm: 650793 1 Tablet(s) PO QHS 05/31/20 18 2017 Inactive True Metrix Glucose Test Strip RxNorm: [address] 05/31/20 18 2017 Inactive 50/container Calcium 600-D3 Plus 600 mg calcium-800 unit-50 mg tablet RxNorm: 1 Tablet(s) PO daily take an additonal tablet for itching. 05/31/20 18 2017 Inactive hydrochlorothiazide 12.5 mg tablet RxNorm: 540158 1 Tablet(s) PO QAM 05/31/20 18 2017 Inactive Flintstones Complete (iron) 18 mg iron chewable tablet RxNorm: 1 Tablet(s) PO daily 05/31/20 18 2017 Inactive True Metrix Glucose Meter RxNorm: miscellaneous 11/15/2018 Inactive sertraline 50 mg tablet RxNorm: 827175 1 Tablet(s) PO daily 11/28/19 20 2019 Inactive loperamide 2 mg tablet RxNorm: 152038 oral 09/29/20 19 2018 Inactive d-mannose oral powder RxNorm: PO 18 2021 Inactive Symbicort 160 mcg-4.5 mcg/actuation HFA aerosol inhaler RxNorm: 5566171 2 Puff(s) INH BID 08/17/202018 Inactive Medication Administered No Medication Administered data Results Observation Observation Code Item Item Code Result Date S ervice Location PREALBUMIN 23628 Prealbumin 81930-7 28 mg/dL 04/30/20 1 9 [facility] [address] [place] [address] NT PROBNP 89117 NT-proBNP 49899-9 121.0 pg/mL 04/30/20 1 9 [facility] [address] [place] [address] Procedures Procedure Codes Date AHA/REBECCA Classification Assessment CPT-4: DAHA 04/25/2019 Controlled Substance Report CPT-4: CTRSU 04/03 Urinalysis, dip stick CPT-4: 59327 03/28/[address]: 272802801 CPT-4: R14 Unknown Reason For Visit No Reason For Visit data Plan of Care Planned Activity Notes Codes Status Date Patient Education: Patient Medication Summary Completed 04/25/2019 Appointment: [facility]: [address] [place], [place] [id number] [place] [id number] 03/28/2019 Appointment: [facility]: [address] [place] [address] [id number] [place] [id number] 02/14/2019 Appointment: [facility]: [address] [place] [address] [id number] [id number] 01/31/2019 Appointment: [facility] W[facility]: [address] [place], [place] [id number] 12/27/2018 Referral: Pending Gynecology Referral Information Referral Processed Referral: Pending Pulmonolog y Referral Information Referral Processed Referral: Pending Psychiatry Referral Information Referral Initiated Referral: Pending Respirator y Services Referral Information Referral Initiated Referral: Pending Ophthalmology Referral Information Referral Initiated Referral: [facility] W[facility]: [address] Tax Accountant placed a call out to the patient to notify her that it has been recommended that she be seen by 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 Patient agreed to be seen, does not have a provider of choice and no transportation issues. Tax Accountant faxed referral and clinical notes to [facility] in [place], [place] near the patient's home. Patient to [...] seen and prefers a provider in the [place] or [place] area. Tax Accountant placed a call out to everyone listed in the area and the only location that was able to accept the patient's insurance was [address] [id number] and spoke with Maylin. Maylin asked that the patient's referral, face sheet and visit notes be faxed to . Tax Accountant faxed over requested documents. Patient appointment confirmation letter generated and mailed to her home address. Patient to call to schedule an appointment. Processed Referral: [facility]: [address] [place], [place] [id number] Patient notified that it has been advised that she be seen by Neurology. Patient agreed to be seen and prefers to be seen by a provider in the [place], [place] area. Patient denies any concerns with transportation, and prefers to schedule her own appointment. Tax Accountant placed a call out to [facility] and spoke with Neeraj Mcfarland: who confirmed that their office is able to accept new patients and the patient's insurance. After confirming the providers fax number, television script writer faxed over the patient's referral, [...]
--- OUTSIDE RECORDS SUMMARY | 2019-04-24 20:00 | XMS_ITS | CCD ---
Author Name Dr Lacey Oropeza DO Address [address] [place] [address] Phone Organization [facility] Phone Care Team Providers Care Air Intelligence Specialist Name Role Phone Palomo ELDER ASSISTANT, Anna Primary Care Provider Unav ailable Unavailable Chronic Care Management Unavaila ble Summary Purpose DataExchange Insurance Providers Payer name Policy type / Coverage type Covered democrat ID Effective Begin Date Effective End Date [employer] [facility] [id number] Unknown Unknown Family history Mother Diagnosis Age [...] Unknown Disability 05/31/[address]: 612730787 Has never s moked or chewed tobacco 05/31/[address]: 695768804 Never drinks alco hol 05/31/2018 Has the [...] ICD-10: I11.0 ICD-9: 402.91 04/25/2019 Active Other alf (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 ICD-10: Z79.899 ICD-9: [...] ICD -10: Z13.9 ICD-9: V82.9 09/05/2018 Active [facility] (current) use of non-steroidal anti-inflammatories [...] Test Strip RxNorm: 1 Test Strips Miscellaneous [facility] 02/01/202018 Inactive 100/container Alcohol Prep Pads RxNorm: 896868 1 Patch TOP [facility] 02/01/202018 Inactive TRUEplus Lancets 30 gauge RxNorm: 1 Lancets Miscellaneous [facility] 02/01/20 19 2018 Inactive 100/box gabapentin 300 mg capsule RxNorm: 565611 1 Capsule(s) PO TID as needed 02/01/202018 Inactive lisinopril 2.5 mg tablet RxNorm: 654704 1 Tablet(s) PO daily 12/28/192018 Inactive buspirone 7.5 mg tablet RxNorm: 602614 1 Tablet(s) PO BID 10/21/192018 Inactive This refill negates all other refills of this medication ranitidine 150 mg tablet RxNorm: 757942 1 Tablet(s) PO BID 10/21/192018 Inactive This refill negates all other refills of this medication albuterol sulfate 2.5 mg/3 mL (0.083 %) solution for nebulization RxNorm: 384601 1 Vial INH QID 10/21/19 19 2018 [...] this medication gabapentin 300 mg capsule RxNorm: 334883 1 Capsule(s) PO TID as needed 10/21/19 19 2018 Inactive atorvastatin 20 mg tablet RxNorm: 664274 1 Tablet(s) PO QHS 10/21/192018 Inactive This refill negates all other refills of this medication trazodone 50 mg tablet RxNorm: 877256 1 Tablet(s) PO QHS 10/21/192018 Inactive This refill negates all other refills of this medication Ventolin HFA 90 mcg/actuation aerosol inhaler RxNorm: 137205 2 Puff(s) INH QID 10/21/192018 Inactive Please do not fill early. Please do not auto refill. This refill negates all other refills of this medication Calcium 600-D3 Plus 600 mg calcium-800 unit-50 mg tablet RxNorm: 1 Tablet(s) PO daily take an additonal tablet for itching. 10/21/192018 Inactive This refill negates all other refills of this medication Singulair 10 mg tablet RxNorm: 069510 1 Tablet(s) PO daily 10/21/192018 Inactive This refill negates all other refills of this medication diclofenac sodium 75 mg tablet,delayed release RxNorm: 113715 1 Tablet(s) PO BID 10/21/19 19 2018 Inactive This refill negates all other refills of this medication hydrochlorothiazide 12.5 mg tablet RxNorm: 133434 1 Tablet(s) PO QAM 10/21/192018 Inactive metoprolol succinate ER 50 mg tablet,extended release 24 hr RxNorm: 520454 1 Tablet(s) PO daily 10/21/19 19 2018 Inactive This refill negates all other refills of this medication levothyroxine 50 mcg tablet RxNorm: 867388 1 Tablet(s) PO daily 10/21/19 19 2018 Inactive This refill negates all other refills of this medication cetirizine 10 mg tablet RxNorm: 7070888 1 Tablet(s) PO daily 10/21/19 19 2018 Inactive This refill negates all other refills of this medication. Please do not auto refill Flintstones Complete (iron) 18 mg iron chewable tablet RxNorm: 1 Tablet(s) PO daily 10/21/19 19 2018 Inactive This refill negates all other refills of this medication buspirone 7.5 mg tablet RxNorm: 691006 1 Tablet(s) PO BID 10/12/192018 Inactive cetirizine 10 mg tablet RxNorm: 7083827 1 Tablet(s) PO daily 09/28/20 18 2018 Inactive Guaiasorb DM 10 mg-100 mg/5 mL oral liquid RxNorm: 413188 10 Milliliter(s) PO As needed every 4 hr 09/24/20 18 2018 Inactive Vicks Vaporub 4.7 %-1.2 %-2.6 % topical ointment RxNorm: 2091083 1 Application TOP TID 09/24/20 18 2018 Inactive levmetamfetamine 50 mg nasal inhaler RxNorm: 1 Unit(s) NASAL Q3-4H 09/24/20 18 2017 Inactive sertraline 50 mg tablet RxNorm: 279806 1 Tablet(s) PO daily 09/09/20 18 2018 Inactive Please note dose trazodone 50 mg tablet RxNorm: 930231 1 Tablet(s) PO QHS 09/06/20 18 2018 Inactive sertraline 50 mg tablet RxNorm: 929977 1 Tablet(s) PO daily 09/06/20 18 2017 Inactive amoxicillin 500 mg tablet RxNorm: 962127 1 Tablet(s) PO Q12H 08/31/20 18 2017 Inactive albuterol sulfate 2.5 mg/3 mL (0.083 %) solution for nebulization RxNorm: 509541 1 Vial INH QID 08/10/20 18 2018 Inactive 60/box. Please do not fill early. Please do not auto refill. Prozac 10 mg capsule RxNorm: 069967 1 Capsule(s) PO daily 08/09/20 18 2017 Inactive buspirone 7.5 mg tablet RxNorm: 526352 1 Tablet(s) PO BID 08/09/20 18 2018 Inactive gabapentin 300 mg capsule RxNorm: 536169 1 Capsule(s) PO TID as needed 08/01/20 18 2018 Inactive hydrochlorothiazide 12.5 mg tablet RxNorm: 998759 1 Tablet(s) PO QAM 08/01/20 18 2018 Inactive ranitidine 150 mg tablet RxNorm: 182859 1 Tablet(s) PO BID 08/01/20 18 2018 Inactive Macrobid 100 mg capsule RxNorm: 941475 1 Capsule(s) PO Q12H 06/21/20 18 2017 Inactive Singulair 10 mg tablet RxNorm: 890082 1 Tablet(s) PO daily 06/14/20 18 2018 Inactive Ventolin HFA 90 mcg/actuation aerosol inhaler RxNorm: 0597169 2 Puff(s) INH QID 06/14/20 18 2018 Inactive Singulair 10 mg tablet RxNorm: 678107 1 Tablet(s) PO daily 06/14/20 18 2017 Inactive buspirone 7.5 mg tablet RxNorm: 433812 1 Tablet(s) PO BID 06/14/20 18 2017 Inactive Prozac 10 mg capsule RxNorm: 567567 1 Capsule(s) PO daily 06/14/20 18 2017 Inactive Neilmed Pediatric Sinus Rinse Refill packet RxNorm: 1 Unit Dose NASAL PRN 05/31/20 18 2021 Inactive diclofenac sodium 75 mg tablet,delayed release RxNorm: 200580 1 Tablet(s) PO BID 05/31/20 18 2017 Inactive lisinopril 2.5 mg tablet RxNorm: 206645 1 Tablet(s) PO daily 05/31/20 18 2017 Inactive metoprolol succinate ER 50 mg tablet,extended release 24 hr RxNorm: 511143 1 Tablet(s) PO daily 05/31/20 18 2017 Inactive levothyroxine 50 mcg tablet RxNorm: 067986 1 Tablet(s) PO daily 05/31/20 18 2017 Inactive TRUEplus Lancets 30 gauge RxNorm: 1 Lancets Miscellaneous QAM 05/31/20 18 2017 Inactive 100/box Ventolin HFA 90 mcg/actuation aerosol inhaler RxNorm: 671178 2 Puff(s) INH QID 05/31/20 18 2017 Inactive Aleve 220 mg capsule RxNorm: 4622042 1 Capsule(s) PO BID 05/31/20 18 2018 Inactive ranitidine 150 mg tablet RxNorm: 991860 1 Tablet(s) PO BID 05/31/20 18 2017 Inactive gabapentin 300 mg capsule RxNorm: 431582 1 Capsule(s) PO TID as needed 05/31/20 18 2017 Inactive atorvastatin 20 mg tablet RxNorm: 011136 1 Tablet(s) PO QHS 05/31/20 18 2017 Inactive True Metrix Glucose Test Strip RxNorm: [facility] 05/[facility]/20 18 2017 Inactive 50/container Calcium 600-D3 Plus 600 mg calcium-800 unit-50 mg tablet RxNorm: 1 Tablet(s) PO daily take an additonal tablet for itching. 05/31/20 18 2017 Inactive hydrochlorothiazide 12.5 mg tablet RxNorm: 405335 1 Tablet(s) PO QAM 05/31/20 18 2017 Inactive Flintstones Complete (iron) 18 mg iron chewable tablet RxNorm: 1 Tablet(s) PO daily 05/31/20 18 2017 Inactive True Metrix Glucose Meter RxNorm: miscellaneous 11/15/2018 Inactive sertraline 50 mg tablet RxNorm: 729432 1 Tablet(s) PO daily 11/28/19 20 2019 Inactive loperamide 2 mg tablet RxNorm: 384580 oral 09/29/20 19 2018 Inactive d-mannose oral powder RxNorm: PO 18 2021 Inactive Symbicort 160 mcg-4.5 mcg/actuation HFA aerosol inhaler RxNorm: 3991995 2 Puff(s) INH BID 08/17/202018 Inactive Medication Administered No Medication Administered data Procedures Procedure Codes Date AHA/REBECCA Classification Assessment CPT-4: DAHA 04/25/2019 Controlled Substance Report CPT-4: CTRSU 04/03 TD VACCINE >7 y/o IM CPT-4: 07332 04/25/2019 AHA/REBECCA Classification Asse ssment Assign to:/Candida - Lab Template, Assign to:, AHA/A: At risk, but without structural heart disease., NYHA/I: Asymptomatic CPT-4: DAHAUnknown 04/25/2019 Immunization Administration CPT-4: 27474 04/03 Controlled Substance Report Assign to:, Controlled Substance Report Range:/Past 24 months, Provider Attestation:/I attest that I reviewed the state PDMP report and find no clinical issues., Formatting Model/CDA Sections/CCDA CPT-4: CTRSUUnknown 04/25/2019 Urinalysis, dip stick CPT-4: 95302 03/28/[address]: 725289718 CPT-4: R14 Unknown Vital Signs Date Vital 04/25/2019 Blood Pressure 1: 140/98 Code: 8480-6 BMI: 55.3 Code: 25902-4 Heart Rate 1: 100 bpm Height: 4'11 Code: 8302-2 Respiratory Rate: 20 bpm SpO2: 98% Temperature: 36.3 (C) / 97.3 (F) Weight: 274 lbs Code: 06486-0 Reason For Visit Reason For Visit Effective Dates Notes diabetes mellitus 04/25/2019 hypertension 04/25/2019 asthma disease 04/25/2019 Encounters Encounter Performer Location Location Address Codes Magdi e HOME VISIT EST PATIENT Diagnosis: Hypertensive heart disease with heart failure[ICD10: I11.0] Diagnosis: Unspecified asthma, uncomplicated[ICD10 : J45.909] Diagnosis: Type 2 diabetes mellitus without complications[ICD10 : E11.9] Diagnosis: Encounter for immunization[ICD10: Z23] Diagnosis: Encounter for screening for malignant neoplasm of cervix[ICD10: Z12.4] Charlene Tejada Office [address] [facility] [address] [place] [address] CPT-4: 12963 04/25/2019 Plan of Care Planned Activity Notes Codes [...] CXR, Ventolin rescue inhaler, Yon Has a cook jelly that she is seeing tomorrow Using rescue [...] problem but needs a new one in [place], have asked for that referral, too. Z23-V03.9 Encounter for immunization PPSV23 and Td offered today, says she had PPSV23 already, chart updated Td given today Z12.4-V76.2 Encounter for screening for malignant neoplasm of cervix Offered [facility] referral for cervical CA screening - and referred today Z79.899-V58.69 Other alf (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 PDMP reviewed last fill on 03/01/19 gabapentin 300 mg #90 Okay for refill today 04/25/2019 Patient Education: Patient Medication Summary Completed 04/25/2019 Patient Education: Asthma Completed 04/25/2019 Patient Education: Hypertension Completed 04/25/2019 Patient Education: Obesity Completed 04/25/2019 Patient Education: Diabetes Complete d 04/25/2019 Care Plan: Overnight Pulse ox Ordere d 04/25/2019 Appointment: Rasta Palafox WPtel: [address] [place], [place] [id number] [id number] 03/28/2019 Appointment: Rasta Palafox WPtel: [address] [place], [place] [id number] [id number] 02/14/2019 Appointment: Rasta Palafox WPtel: [address] [place], [place] [id number] [id number] 01/31/2019 Appointment: Rasta Palafox WPtel: [address] [place], [place] [id number] 12/27/2018 Referral: Pending Gynecology Referral Information Referral Processed Referral: Pending Pulmonolog y Referral Information Referral Processed Referral: Pending Psychiatry Referral Information Referral Initiated Referral: Pending Respirator y Services Referral Information Referral Initiated Referral: Pending Ophthalmology Referral Information Referral Initiated Referral: [facility] WPtel: [address] Soil Conservation Teacher placed a call out to the patient to notify her that it has been recommended that she be seen by 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 Patient agreed to be seen, does not have a provider of choice and no transportation issues. Soil Conservation Teacher faxed referral and clinical notes to [facility] in [place], [place] near the patient's home. Patient to [...] seen and prefers a provider in the [place] or [place] area. Soil Conservation Teacher placed a call out to everyone listed in the area and the only location that was able to accept the patient's insurance was [facility] [address] [place] [address] and spoke with Maylin. Maylin asked that the patient's referral, face sheet and visit notes be faxed to . Soil Conservation Teacher faxed over requested documents. Patient appointment confirmation letter generated and mailed to her home address. Patient to call to schedule an appointment. Processed Referral: [facility] WPtel: [address] [place] [address] Patient notified that it has been advised that she be seen by Neurology. Patient agreed to be seen and prefers to be seen by a provider in the [place], [place] area. Patient denies any concerns with transportation, and prefers to schedule her own appointment. Soil Conservation Teacher placed a call out to [facility] and spoke with [...] Information Referral Initiated Instructions Comment Date . I11.0-402.91 Hypertensive heart [...] CXR, Ventolin rescue inhaler, Yon Has a cook jelly that she is seeing tomorrow Using rescue [...] problem but needs a new one in [place], have asked for that referral, too. Z23-V03.9 Encounter for immunization PPSV23 and Td offered today, says she had PPSV23 already, chart updated Td given today Z12.4-V76.2 Encounter for screening for malignant neoplasm of cervix Offered [facility] referral for cervical CA screening - and referred today Z79.899-V58.69 Other equip tech (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 PDMP reviewed last fill on 03/01/19 gabapentin 300 mg #90 Okay for refill today 04/25/2019 Medical Equipment No Medical Equipment data Advance Directives No Advance Directive data
--- OUTSIDE RECORDS SUMMARY | 2019-04-26 20:00 | XMS_ITS | CCD ---
Author Name Office, [facility] Phone Care Team Providers Care Utility Division Project Manager Name Role Phone Palomo HAM SMOKER, Anna Primary Care Provider Unav ailable Unavailable Chronic Care Management Unavaila ble Summary Purpose DataExchange Insurance Providers Payer name Policy type / Coverage type Covered green party ID Effective Begin Date Effective End Date SUKI MAYO [id number] Unknown Unknown Family history Mother Diagnosis Age [...] Unknown Disability 05/31/[address]: 729252849 Has never s moked or chewed tobacco 05/31/[address]: 534923697 Never drinks alco hol 05/31/2018 Has the [...] Condition Codes Effective Dates Condition St atus Patient Not Seen ICD-10: UXZ.01 ICD-9: XZ0.1 04/27/2019 Active Encounter for immunization ICD-10: Z23 ICD-9: V03.9 04/25/2019 Active Encounter for screening for malignant neoplasm of cervix ICD-10: Z12.4 ICD-9: V76.2 04/25/2019 Active Hypertensive heart disease w ith heart failure ICD-10: I11.0 ICD-9: 402.91 04/25/2019 Active Other detention (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 ICD-10: Z79.899 ICD-9: [...] ICD -10: Z13.9 ICD-9: V82.9 09/05/2018 Active 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 of non-steroidal anti-inflammatories (NSAID) ICD-10: [...] Test Strip RxNorm: 1 Test Strips Miscellaneous [facility] 02/01/20 19 2018 Inactive 100/container Alcohol Prep Pads RxNorm: 315428 1 Patch TOP [facility] 02/01/202018 Inactive TRUEplus Lancets 30 gauge RxNorm: 1 Lancets Miscellaneous [facility] 02/01/20 19 2018 Inactive 100/box gabapentin 300 mg capsule RxNorm: 599948 1 Capsule(s) PO TID as needed 02/01/202018 Inactive lisinopril 2.5 mg tablet RxNorm: 499220 1 Tablet(s) PO daily 12/28/192018 Inactive buspirone 7.5 mg tablet RxNorm: 866237 1 Tablet(s) PO BID 10/21/192018 Inactive This refill negates all other refills of this medication ranitidine 150 mg tablet RxNorm: 248227 1 Tablet(s) PO BID 10/21/192018 Inactive This refill negates all other refills of this medication albuterol sulfate 2.5 mg/3 mL (0.083 %) solution for nebulization RxNorm: 366152 1 Vial INH QID 10/21/19 19 2018 [...] this medication gabapentin 300 mg capsule RxNorm: 068270 1 Capsule(s) PO TID as needed 10/21/19 19 2018 Inactive atorvastatin 20 mg tablet RxNorm: 130549 1 Tablet(s) PO QHS 10/21/192018 Inactive This refill negates all other refills of this medication trazodone 50 mg tablet RxNorm: 676352 1 Tablet(s) PO QHS 10/21/192018 Inactive This refill negates all other refills of this medication Ventolin HFA 90 mcg/actuation aerosol inhaler RxNorm: 367992 2 Puff(s) INH QID 10/21/192018 Inactive Please do not fill early. Please do not auto refill. This refill negates all other refills of this medication Calcium 600-D3 Plus 600 mg calcium-800 unit-50 mg tablet RxNorm: 1 Tablet(s) PO daily take an additonal tablet for itching. 10/21/192018 Inactive This refill negates all other refills of this medication Singulair 10 mg tablet RxNorm: 057508 1 Tablet(s) PO daily 10/21/192018 Inactive This refill negates all other refills of this medication diclofenac sodium 75 mg tablet,delayed release RxNorm: 288674 1 Tablet(s) PO BID 10/21/19 19 2018 Inactive This refill negates all other refills of this medication hydrochlorothiazide 12.5 mg tablet RxNorm: 666098 1 Tablet(s) PO QAM 10/21/192018 Inactive metoprolol succinate ER 50 mg tablet,extended release 24 hr RxNorm: 950400 1 Tablet(s) PO daily 10/21/19 19 2018 Inactive This refill negates all other refills of this medication levothyroxine 50 mcg tablet RxNorm: 218421 1 Tablet(s) PO daily 10/21/19 19 2018 Inactive This refill negates all other refills of this medication cetirizine 10 mg tablet RxNorm: 8464295 1 Tablet(s) PO daily 10/21/19 19 2018 Inactive This refill negates all other refills of this medication. Please do not auto refill Flintstones Complete (iron) 18 mg iron chewable tablet RxNorm: 1 Tablet(s) PO daily 10/21/19 19 2018 Inactive This refill negates all other refills of this medication buspirone 7.5 mg tablet RxNorm: 315506 1 Tablet(s) PO BID 10/12/192018 Inactive cetirizine 10 mg tablet RxNorm: 0087237 1 Tablet(s) PO daily 09/28/20 18 2018 Inactive Guaiasorb DM 10 mg-100 mg/5 mL oral liquid RxNorm: 648329 10 Milliliter(s) PO As needed every 4 hr 09/24/202018 Inactive Vicks Vaporub 4.7 %-1.2 %-2.6 % topical ointment RxNorm: 7207695 1 Application TOP TID 09/24/20 18 2018 Inactive levmetamfetamine 50 mg nasal inhaler RxNorm: 1 Unit(s) NASAL Q3-4H 09/24/20 18 2017 Inactive sertraline 50 mg tablet RxNorm: 854727 1 Tablet(s) PO daily 09/09/20 18 2018 Inactive Please note dose trazodone 50 mg tablet RxNorm: 061135 1 Tablet(s) PO QHS 09/06/20 18 2018 Inactive sertraline 50 mg tablet RxNorm: 345559 1 Tablet(s) PO daily 09/06/20 18 2017 Inactive amoxicillin 500 mg tablet RxNorm: 805798 1 Tablet(s) PO Q12H 08/31/20 18 2017 Inactive albuterol sulfate 2.5 mg/3 mL (0.083 %) solution for nebulization RxNorm: 554358 1 Vial INH QID 08/10/20 18 2018 Inactive 60/box. Please do not fill early. Please do not auto refill. Prozac 10 mg capsule RxNorm: 391481 1 Capsule(s) PO daily 08/09/20 18 2017 Inactive buspirone 7.5 mg tablet RxNorm: 902508 1 Tablet(s) PO BID 08/09/20 18 2018 Inactive gabapentin 300 mg capsule RxNorm: 854542 1 Capsule(s) PO TID as needed 08/01/20 18 2018 Inactive hydrochlorothiazide 12.5 mg tablet RxNorm: 095008 1 Tablet(s) PO QAM 08/01/20 18 2018 Inactive ranitidine 150 mg tablet RxNorm: 924346 1 Tablet(s) PO BID 08/01/20 18 2018 Inactive Macrobid 100 mg capsule RxNorm: 226356 1 Capsule(s) PO Q12H 06/21/20 18 2017 Inactive Singulair 10 mg tablet RxNorm: 758645 1 Tablet(s) PO daily 06/14/20 18 2018 Inactive Ventolin HFA 90 mcg/actuation aerosol inhaler RxNorm: 9836228 2 Puff(s) INH QID 06/14/20 18 2018 Inactive Singulair 10 mg tablet RxNorm: 208066 1 Tablet(s) PO daily 06/14/20 18 2017 Inactive buspirone 7.5 mg tablet RxNorm: 096235 1 Tablet(s) PO BID 06/14/20 18 2017 Inactive Prozac 10 mg capsule RxNorm: 160711 1 Capsule(s) PO daily 06/14/20 18 2017 Inactive Neilmed Pediatric Sinus Rinse Refill packet RxNorm: 1 Unit Dose NASAL PRN 05/31/20 18 2021 Inactive diclofenac sodium 75 mg tablet,delayed release RxNorm: 885529 1 Tablet(s) PO BID 05/31/20 18 2017 Inactive lisinopril 2.5 mg tablet RxNorm: 751160 1 Tablet(s) PO daily 05/31/20 18 2017 Inactive metoprolol succinate ER 50 mg tablet,extended release 24 hr RxNorm: 255999 1 Tablet(s) PO daily 05/31/20 18 2017 Inactive levothyroxine 50 mcg tablet RxNorm: 982763 1 Tablet(s) PO daily 05/31/20 18 2017 Inactive TRUEplus Lancets 30 gauge RxNorm: 1 Lancets Miscellaneous QAM 05/31/20 18 2017 Inactive 100/box Ventolin HFA 90 mcg/actuation aerosol inhaler RxNorm: 904122 2 Puff(s) INH QID 05/31/20 18 2017 Inactive Aleve 220 mg capsule RxNorm: 8321454 1 Capsule(s) PO BID 05/31/20 18 2018 Inactive ranitidine 150 mg tablet RxNorm: 396982 1 Tablet(s) PO BID 05/31/20 18 2017 Inactive gabapentin 300 mg capsule RxNorm: 726592 1 Capsule(s) PO TID as needed 05/31/20 18 2017 Inactive atorvastatin 20 mg tablet RxNorm: 251947 1 Tablet(s) PO QHS 05/31/20 18 2017 Inactive True Metrix Glucose Test Strip RxNorm: 1 Test Strips Miscellaneous QAM 05/31/20 18 2017 Inactive 50/container Calcium 600-D3 Plus 600 mg calcium-800 unit-50 mg tablet RxNorm: 1 Tablet(s) PO daily take an additonal tablet for itching. 05/31/20 18 2017 Inactive hydrochlorothiazide 12.5 mg tablet RxNorm: 050599 1 Tablet(s) PO QAM 05/31/20 18 2017 Inactive Flintstones Complete (iron) 18 mg iron chewable tablet RxNorm: 1 Tablet(s) PO daily 05/31/20 18 2017 Inactive True Metrix Glucose Meter RxNorm: miscellaneous 08/17/20 19 2018 Inactive sertraline 50 mg tablet RxNorm: 694239 1 Tablet(s) PO daily 11/28/19 20 2019 Inactive loperamide 2 mg tablet RxNorm: 009566 oral 09/29/20 19 2018 Inactive d-mannose oral powder RxNorm: PO 18 2021 Inactive Symbicort 160 mcg-4.5 mcg/actuation HFA aerosol inhaler RxNorm: 5401841 2 Puff(s) INH BID 08/17/20 19 2018 Inactive Medication Administered No Medication Administered data Procedures Procedure Codes Date AHA/REBECCA Classification Assessment CPT-4: DAHA 04/25/2019 Controlled Substance Report CPT-4: CTRSU 04/03 Urinalysis, dip stick CPT-4: 77683 03/28/[address]: 735710568 CPT-4: R14 Unknown Reason For Visit No Reason For Visit data Encounters Encounter Performer Location Location Address Codes Magdi e (IND) Independent Lab Draw Diagnosis: Patient Not Seen[ICD10: UXZ.01] [place] [facility] [place] [facility] [id number] [place] [address] CPT-4: IND 04/27/2019 Plan of Care Planned Activity Notes Codes Status Date Patient Education: Patient Medication Summary Completed 04/27/2019 Appointment: Charlene Oropeza WPtel: [address] [place] [address] [id number] [place] [address] 04/25/2019 Appointment: Rasta Palafox WPtel: [address] [place] [address] [id number] [place] [address] 03/28/2019 Appointment: Rasta Palafox WPtel: [address] [place] [address] [id number] [place] [address] 02/14/2019 Appointment: Rasta Palafox WPtel: [address] [place], [place] [id number] [place] [address] 01/31/2019 Appointment: Rasta Palafox WPtel: [address] [place], [place] [address]b [id number] 12/27/2018 Referral: Pending Gynecology Referral Information Referral Processed Referral: Pending Pulmonolog y Referral Information Referral Processed Referral: Pending Psychiatry Referral Information Referral Initiated Referral: Pending Respirator y Services Referral Information Referral Initiated Referral: Pending Ophthalmology Referral Information Referral Initiated Referral: [facility] WPtel: [address] [facility] [address] Proofing Machine Operator placed a call out to the patient to notify her that it has been recommended that she be seen by 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 Patient agreed to be seen, does not have a provider of choice and no transportation issues. Proofing Machine Operator faxed referral and clinical notes to [facility] in [place], [place] near the patient's home. Patient to [...] seen and prefers a provider in the [place] or [place] area. Proofing Machine Operator placed a call out to everyone listed in the area and the only location that was able to accept the patient's insurance was [address] [address] and spoke with Maylin. Maylin asked that the patient's referral, face sheet and visit notes be faxed to . Proofing Machine Operator faxed over requested documents. Patient appointment confirmation letter generated and mailed to her home address. Patient to call to schedule an appointment. Processed Referral: [facility] WPtel: [address] [facility] [address] [place], [place] [id number] Patient notified that it has been advised that she be seen by Neurology. Patient agreed to be seen and prefers to be seen by a provider in the [place], [place] area. Patient denies any concerns with transportation, and prefers to schedule her own appointment. Proofing Machine Operator [facility] and spoke with Neeraj P: who confirmed that their office is able to accept new patients and the patient's insurance. After confirming the providers fax number, junior copywriter faxed over the patient's referral, and most [...]
--- OUTSIDE RECORDS SUMMARY | 2019-05-02 20:00 | XMS_ITS | CCD ---
Author Name Dr Lacey Oropeza DO Address [address] [facility] [address] [place] [address] Phone Organization [facility] Phone Care Team Providers Care Lift Supervisor Name Role Phone Palomo WEB OFFSET PRESS FEEDER, Anna Primary Care Provider Unav ailable Unavailable Chronic Care Management Unavaila ble Summary Purpose DataExchange Insurance Providers Payer name Policy type / Coverage type Covered republican ID Effective Begin Date Effective End Date [facility] [id number] Unknown Unknown Family history Mother Diagnosis Age [...] Unknown Disability 05/31/[address]: 563428843 Has never s moked or chewed tobacco 05/31/[address]: 841249646 Never drinks alco hol 05/31/2018 Has the [...] ICD-10: G62. 9 ICD-9: 356.9 05/30/2018 Active Patient Not Seen ICD-10: UXZ.01 ICD-9: XZ0.1 04/27/2019 Active Encounter for immunization ICD-10: Z23 ICD-9: V03.9 04/25/2019 Active Encounter for screening for malignant neoplasm of cervix ICD-10: Z12.4 ICD-9: V76.2 04/25/2019 Active Hypertensive heart disease w ith heart failure ICD-10: I11.0 ICD-9: 402.91 04/25/2019 Active Other rn long term care (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 ICD-10: Z79.899 ICD-9: [...] ICD- 10: N18.9 ICD-9: 585.9 10/03/2018 Resolved Encounter for screening, unspecified ICD -10: Z13.9 ICD-9: V82.9 09/05/2018 Active custodial (current) use of non-steroidal anti-inflammatories (NSAID) ICD-10: Z79.1 ICD-9: V58.64 06/13/2018 Active Hyperlipidemia, unspecified ICD-10: E78. 5 ICD-9: 272.4 05/30/2018 Active Medications Medication Codes Instructions Start Date Stop Date Status Fill Instructions gabapentin 300 mg capsule RxNorm: 117486 1 Capsule(s) PO TID 05/03/20 19 2018 Inactive Flintstonbree Complete (iron) 18 mg iron chewable tablet RxNorm: 1 Tablet(s) PO daily 04/04/202021 Inactive This refill negates all other refills of this medication True Metrix Glucose Test Strip RxNorm: 1 [facility] 02/01/20 19 2018 Inactive 100/container Alcohol Prep Pads RxNorm: 866616 1 Patch TOP [facility] 02/01/202018 Inactive TRUEplus Lancets 30 gauge RxNorm: 1 Lancets Miscellaneous [facility] 02/01/20 19 2018 Inactive 100/box gabapentin 300 mg capsule RxNorm: 506754 1 Capsule(s) PO TID as needed 02/01/20 19 2018 Inactive lisinopril 2.5 mg tablet RxNorm: 056419 1 Tablet(s) PO daily 12/28/19 19 2018 Inactive buspirone 7.5 mg tablet RxNorm: 274607 1 Tablet(s) PO BID 10/21/192018 Inactive This refill negates all other refills of this medication ranitidine 150 mg tablet RxNorm: 776969 1 Tablet(s) PO BID 10/21/19 19 2018 Inactive This refill negates all other refills of this medication albuterol sulfate 2.5 mg/3 mL (0.083 %) solution for nebulization RxNorm: 435904 1 Vial INH QID 10/21/19 19 2018 [...] this medication gabapentin 300 mg capsule RxNorm: 462308 1 Capsule(s) PO TID as needed 10/21/19 19 2018 Inactive atorvastatin 20 mg tablet RxNorm: 644248 1 Tablet(s) PO QHS 10/21/19 19 2018 Inactive This refill negates all other refills of this medication trazodone 50 mg tablet RxNorm: 373594 1 Tablet(s) PO QHS 10/21/192018 Inactive This refill negates all other refills of this medication Ventolin HFA 90 mcg/actuation aerosol inhaler RxNorm: 108733 2 Puff(s) INH QID 10/21/192018 Inactive Please do not fill early. Please do not auto refill. This refill negates all other refills of this medication Calcium 600-D3 Plus 600 mg calcium-800 unit-50 mg tablet RxNorm: 1 Tablet(s) PO daily take an additonal tablet for itching. 10/21/192018 Inactive This refill negates all other refills of this medication Singulair 10 mg tablet RxNorm: 320063 1 Tablet(s) PO daily 10/21/192018 Inactive This refill negates all other refills of this medication diclofenac sodium 75 mg tablet,delayed release RxNorm: 805623 1 Tablet(s) PO BID 10/21/19 19 2018 Inactive This refill negates all other refills of this medication hydrochlorothiazide 12.5 mg tablet RxNorm: 949073 1 Tablet(s) PO QAM 10/21/19 19 2018 Inactive metoprolol succinate ER 50 mg tablet,extended release 24 hr RxNorm: 401068 1 Tablet(s) PO daily 10/21/19 19 2018 Inactive This refill negates all other refills of this medication levothyroxine 50 mcg tablet RxNorm: 032808 1 Tablet(s) PO daily 10/21/192018 Inactive This refill negates all other refills of this medication cetirizine 10 mg tablet RxNorm: 5745453 1 Tablet(s) PO daily 10/21/192018 Inactive This refill negates all other refills of this medication. Please do not auto refill Flintstones Complete (iron) 18 mg iron chewable tablet RxNorm: 1 Tablet(s) PO daily 10/21/192018 Inactive This refill negates all other refills of this medication buspirone 7.5 mg tablet RxNorm: 043870 1 Tablet(s) PO BID 10/12/19 19 2018 Inactive cetirizine 10 mg tablet RxNorm: 6138240 1 Tablet(s) PO daily 09/28/202018 Inactive Guaiasorb DM 10 mg-100 mg/5 mL oral liquid RxNorm: 206835 10 Milliliter(s) PO As needed every 4 hr 09/24/202018 Inactive Vicks Vaporub 4.7 %-1.2 %-2.6 % topical ointment RxNorm: 2852417 1 Application TOP TID 09/24/20 18 2018 Inactive levmetamfetamine 50 mg nasal inhaler RxNorm: 1 Unit(s) NASAL Q3-4H 09/24/20 18 2017 Inactive sertraline 50 mg tablet RxNorm: 007513 1 Tablet(s) PO daily 09/09/20 18 2018 Inactive Please note dose trazodone 50 mg tablet RxNorm: 345642 1 Tablet(s) PO QHS 09/06/20 18 2018 Inactive sertraline 50 mg tablet RxNorm: 918189 1 Tablet(s) PO daily 09/06/20 18 2017 Inactive amoxicillin 500 mg tablet RxNorm: 010843 1 Tablet(s) PO Q12H 08/31/20 18 2017 Inactive albuterol sulfate 2.5 mg/3 mL (0.083 %) solution for nebulization RxNorm: 968837 1 Vial INH QID 08/10/20 18 2018 Inactive 60/box. Please do not fill early. Please do not auto refill. Prozac 10 mg capsule RxNorm: 545410 1 Capsule(s) PO daily 08/09/20 18 2017 Inactive buspirone 7.5 mg tablet RxNorm: 460640 1 Tablet(s) PO BID 08/09/20 18 2018 Inactive gabapentin 300 mg capsule RxNorm: 284118 1 Capsule(s) PO TID as needed 08/01/20 18 2018 Inactive hydrochlorothiazide 12.5 mg tablet RxNorm: 485434 1 Tablet(s) PO QAM 08/01/20 18 2018 Inactive ranitidine 150 mg tablet RxNorm: 094451 1 Tablet(s) PO BID 08/01/20 18 2018 Inactive Macrobid 100 mg capsule RxNorm: 931542 1 Capsule(s) PO Q12H 06/21/20 18 2017 Inactive Singulair 10 mg tablet RxNorm: 511929 1 Tablet(s) PO daily 06/14/20 18 2018 Inactive Ventolin HFA 90 mcg/actuation aerosol inhaler RxNorm: 0029311 2 Puff(s) INH QID 06/14/20 18 2018 Inactive Singulair 10 mg tablet RxNorm: 562184 1 Tablet(s) PO daily 06/14/20 18 2017 Inactive buspirone 7.5 mg tablet RxNorm: 123894 1 Tablet(s) PO BID 06/14/20 18 2017 Inactive Prozac 10 mg capsule RxNorm: 148724 1 Capsule(s) PO daily 06/14/20 18 2017 Inactive Neilmed Pediatric Sinus Rinse Refill packet RxNorm: 1 Unit Dose NASAL PRN 05/31/20 18 2021 Inactive diclofenac sodium 75 mg tablet,delayed release RxNorm: 442437 1 Tablet(s) PO BID 05/31/20 18 2017 Inactive lisinopril 2.5 mg tablet RxNorm: 035837 1 Tablet(s) PO daily 05/31/20 18 2017 Inactive metoprolol succinate ER 50 mg tablet,extended release 24 hr RxNorm: 253202 1 Tablet(s) PO daily 05/31/20 18 2017 Inactive levothyroxine 50 mcg tablet RxNorm: 904133 1 Tablet(s) PO daily 05/31/20 18 2017 Inactive TRUEplus Lancets 30 gauge RxNorm: 1 Lancets Miscellaneous QAM 05/31/20 18 2017 Inactive 100/box Ventolin HFA 90 mcg/actuation aerosol inhaler RxNorm: 651738 2 Puff(s) INH QID 05/31/20 18 2017 Inactive Aleve 220 mg capsule RxNorm: 9631365 1 Capsule(s) PO BID 05/31/20 18 2018 Inactive ranitidine 150 mg tablet RxNorm: 383467 1 Tablet(s) PO BID 05/31/20 18 2017 Inactive gabapentin 300 mg capsule RxNorm: 758331 1 Capsule(s) PO TID as needed 05/31/20 18 2017 Inactive atorvastatin 20 mg tablet RxNorm: 634478 1 Tablet(s) PO QHS 05/31/20 18 2017 Inactive True Metrix Glucose Test Strip RxNorm: 1 Test Strips Miscellaneous QAM 05/31/20 18 2017 Inactive 50/container Calcium 600-D3 Plus 600 mg calcium-800 unit-50 mg tablet RxNorm: 1 Tablet(s) PO daily take an additonal tablet for itching. 05/31/20 18 2017 Inactive hydrochlorothiazide 12.5 mg tablet RxNorm: 107175 1 Tablet(s) PO QAM 05/31/20 18 2017 Inactive Flintstones Complete (iron) 18 mg iron chewable tablet RxNorm: 1 Tablet(s) PO daily 05/31/20 18 2017 Inactive True Metrix Glucose Meter RxNorm: miscellaneous 08/17/20 19 2018 Inactive sertraline 50 mg tablet RxNorm: 733738 1 Tablet(s) PO daily 11/28/19 20 2019 Inactive loperamide 2 mg tablet RxNorm: 592496 oral 09/29/20 19 2018 Inactive d-mannose oral powder RxNorm: PO 18 2021 Inactive Symbicort 160 mcg-4.5 mcg/actuation HFA aerosol inhaler RxNorm: 1932528 2 Puff(s) INH BID 08/17/202018 Inactive Medication Administered No Medication Administered data Procedures Procedure Codes Date AHA/REBECCA Classification Assessment CPT-4: DAHA 04/25/2019 Controlled Substance Report CPT-4: CTRSU 04/03 Urinalysis, dip stick CPT-4: 16844 03/28/[address]: 075143870 CPT-4: R14 Unknown Reason For Visit No Reason For Visit data Plan of Care Planned Activity Notes Codes Status Date Patient Education: Patient Medication Summary Completed 05/03/2019 Appointment: Mallory Delgado Nikolay 04/27/2019 Appointment: Charlene Oropeza WPtel: [address] [place] [address] [id number] 04/25/2019 Appointment: Rasta Palafox WPtel: [address] [place] [address] [id number] E452 03/28/2019 Appointment: Rasta Palafox WPtel: [address] [place], [place] [address]eOH[address] E452 02/14/2019 Appointment: Rasta Palafox WPtel: [address] [place], [place] [address]eOH[address] E452 01/31/2019 Appointment: Rasta Palafox WPtel: [address] [facility] [address] [id number] E420 12/27/2018 Referral: Pending Gynecology Referral Information Referral Processed Referral: Pending Pulmonolog y Referral Information Referral Processed Referral: Pending Psychiatry Referral Information Referral Initiated Referral: Pending Respirator y Services Referral Information Referral Initiated Referral: Pending Ophthalmology Referral Information Referral Initiated Referral: [facility] WPtel: [address] [facility] [address] Clothing Pattern Preparer placed a call out to the patient to notify her that it has been recommended that she be seen by 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 Patient agreed to be seen, does not have a provider of choice and no transportation issues. Clothing Pattern Preparer faxed referral and clinical notes to [facility] in [place], [place] near the patient's home. Patient to [...] seen and prefers a provider in the [place] or [place] area. Clothing Pattern Preparer placed a call out to everyone listed in the area and the only location that was able to accept the patient's insurance was [place] [address] [place] [address] and spoke with Maylin. Maylin asked that the patient's referral, face sheet and visit notes be faxed to . Clothing Pattern Preparer faxed over requested documents. Patient appointment confirmation letter generated and mailed to her home address. Patient to call to schedule an appointment. Processed Referral: [facility] WPtel: [address] [facility] [address] [id number] Patient notified that it has been advised that she be seen by Neurology. Patient agreed to be seen and prefers to be seen by a provider in the [place], [place] area. Patient denies any concerns with transportation, and prefers to schedule her own appointment. Clothing Pattern Preparer placed a call out to [facility] and spoke with Neeraj P: [...]
--- OUTSIDE RECORDS SUMMARY | 2019-05-04 20:00 | XMS_ITS | CCD ---
Author Name Korey BOWMAN, Dr Jensen Address [address] [facility] [address] [place] [address] Phone Organization [facility] Phone Care Team Providers Care Wire Border Assembler Name Role Phone Palomo WEB SITE SPECIALIST, Anna Primary Care Provider Unav ailable Unavailable Chronic Care Management Unavaila ble Summary Purpose DataExchange Insurance Providers Payer name Policy type / Coverage type Covered democrat ID Effective Begin Date Effective End Date SUKI BUTTS MARIA ESTHER [id number] Unknown Unknown Family history Mother Diagnosis Age [...] Unknown Disability 05/31/[address]: 754327423 Has never s moked or chewed tobacco 05/31/[address]: 817465914 Never drinks alco hol 05/31/2018 Has the [...] ICD-10: I11.0 ICD-9: 402.91 04/25/2019 Active Other shelter (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 ICD-10: Z79.899 ICD-9: [...] ICD -10: Z13.9 ICD-9: V82.9 09/05/2018 Active penitentiary (current) use of non-steroidal anti-inflammatories (NSAID) ICD-10: Z79.1 ICD-9: V58.64 06/13/2018 Active Hyperlipidemia, unspecified ICD-10: E78. 5 ICD-9: 272.4 05/30/2018 Active Medications Medication Codes Instructions Start Date Stop Date Status Fill Instructions gabapentin 300 mg capsule RxNorm: 748537 1 Capsule(s) PO TID 05/03/20 19 2018 Inactive Flintstones Complete (iron) 18 mg iron chewable tablet RxNorm: 1 Tablet(s) PO daily 04/04/202021 Inactive This refill negates all other refills of this medication True Metrix Glucose Test Strip RxNorm: 1 Test Strips Miscellaneous [facility] 02/01/20 19 2018 Inactive 100/container Alcohol Prep Pads RxNorm: 909092 1 Patch TOP [facility] 02/01/202018 Inactive TRUEplus Lancets 30 gauge RxNorm: 1 Lancets Miscellaneous [facility] 02/01/20 19 2018 Inactive 100/box gabapentin 300 mg capsule RxNorm: 294096 1 Capsule(s) PO TID as needed 02/01/202018 Inactive lisinopril 2.5 mg tablet RxNorm: 515810 1 Tablet(s) PO daily 12/28/19 19 2018 Inactive buspirone 7.5 mg tablet RxNorm: 792398 1 Tablet(s) PO BID 10/21/192018 Inactive This refill negates all other refills of this medication ranitidine 150 mg tablet RxNorm: 142433 1 Tablet(s) PO BID 10/21/19 19 2018 Inactive This refill negates all other refills of this medication albuterol sulfate 2.5 mg/3 mL (0.083 %) solution for nebulization RxNorm: 906079 1 Vial INH QID 10/21/19 19 2018 [...] this medication gabapentin 300 mg capsule RxNorm: 718738 1 Capsule(s) PO TID as needed 10/21/19 19 2018 Inactive atorvastatin 20 mg tablet RxNorm: 640727 1 Tablet(s) PO QHS 10/21/192018 Inactive This refill negates all other refills of this medication trazodone 50 mg tablet RxNorm: 048045 1 Tablet(s) PO QHS 10/21/192018 Inactive This refill negates all other refills of this medication Ventolin HFA 90 mcg/actuation aerosol inhaler RxNorm: 260185 2 Puff(s) INH QID 10/21/192018 Inactive Please do not fill early. Please do not auto refill. This refill negates all other refills of this medication Calcium 600-D3 Plus 600 mg calcium-800 unit-50 mg tablet RxNorm: 1 Tablet(s) PO daily take an additonal tablet for itching. 10/21/192018 Inactive This refill negates all other refills of this medication Singulair 10 mg tablet RxNorm: 838471 1 Tablet(s) PO daily 10/21/192018 Inactive This refill negates all other refills of this medication diclofenac sodium 75 mg tablet,delayed release RxNorm: 067145 1 Tablet(s) PO BID 10/21/19 19 2018 Inactive This refill negates all other refills of this medication hydrochlorothiazide 12.5 mg tablet RxNorm: 850892 1 Tablet(s) PO QAM 10/21/19 19 2018 Inactive metoprolol succinate ER 50 mg tablet,extended release 24 hr RxNorm: 951179 1 Tablet(s) PO daily 10/21/19 19 2018 Inactive This refill negates all other refills of this medication levothyroxine 50 mcg tablet RxNorm: 599021 1 Tablet(s) PO daily 10/21/19 19 2018 Inactive This refill negates all other refills of this medication cetirizine 10 mg tablet RxNorm: 0697362 1 Tablet(s) PO daily 10/21/192018 Inactive This refill negates all other refills of this medication. Please do not auto refill Flintstones Complete (iron) 18 mg iron chewable tablet RxNorm: 1 Tablet(s) PO daily 10/21/192018 Inactive This refill negates all other refills of this medication buspirone 7.5 mg tablet RxNorm: 936748 1 Tablet(s) PO BID 10/12/19 19 2018 Inactive cetirizine 10 mg tablet RxNorm: 6146807 1 Tablet(s) PO daily 09/28/202018 Inactive Guaiasorb DM 10 mg-100 mg/5 mL oral liquid RxNorm: 145147 10 Milliliter(s) PO As needed every 4 hr 09/24/202018 Inactive Vicks Vaporub 4.7 %-1.2 %-2.6 % topical ointment RxNorm: 9070869 1 Application TOP TID 09/24/20 18 2018 Inactive levmetamfetamine 50 mg nasal inhaler RxNorm: 1 Unit(s) NASAL Q3-4H 09/24/20 18 2017 Inactive sertraline 50 mg tablet RxNorm: 607593 1 Tablet(s) PO daily 09/09/20 18 2018 Inactive Please note dose trazodone 50 mg tablet RxNorm: 550110 1 Tablet(s) PO QHS 09/06/20 18 2018 Inactive sertraline 50 mg tablet RxNorm: 480024 1 Tablet(s) PO daily 09/06/20 18 2017 Inactive amoxicillin 500 mg tablet RxNorm: 226527 1 Tablet(s) PO Q12H 08/31/20 18 2017 Inactive albuterol sulfate 2.5 mg/3 mL (0.083 %) solution for nebulization RxNorm: 460701 1 Vial INH QID 08/10/20 18 2018 Inactive 60/box. Please do not fill early. Please do not auto refill. Prozac 10 mg capsule RxNorm: 848501 1 Capsule(s) PO daily 08/09/20 18 2017 Inactive buspirone 7.5 mg tablet RxNorm: 862334 1 Tablet(s) PO BID 08/09/20 18 2018 Inactive gabapentin 300 mg capsule RxNorm: 012916 1 Capsule(s) PO TID as needed 08/01/20 18 2018 Inactive hydrochlorothiazide 12.5 mg tablet RxNorm: 745713 1 Tablet(s) PO QAM 08/01/20 18 2018 Inactive ranitidine 150 mg tablet RxNorm: 525405 1 Tablet(s) PO BID 08/01/20 18 2018 Inactive Macrobid 100 mg capsule RxNorm: 991362 1 Capsule(s) PO Q12H 06/21/20 18 2017 Inactive Singulair 10 mg tablet RxNorm: 910827 1 Tablet(s) PO daily 06/14/20 18 2018 Inactive Ventolin HFA 90 mcg/actuation aerosol inhaler RxNorm: 1037142 2 Puff(s) INH QID 06/14/20 18 2018 Inactive Singulair 10 mg tablet RxNorm: 034846 1 Tablet(s) PO daily 06/14/20 18 2017 Inactive buspirone 7.5 mg tablet RxNorm: 823041 1 Tablet(s) PO BID 06/14/20 18 2017 Inactive Prozac 10 mg capsule RxNorm: 622373 1 Capsule(s) PO daily 06/14/20 18 2017 Inactive Neilmed Pediatric Sinus Rinse Refill packet RxNorm: 1 Unit Dose NASAL PRN 05/31/20 18 2021 Inactive diclofenac sodium 75 mg tablet,delayed release RxNorm: 774499 1 Tablet(s) PO BID 05/31/20 18 2017 Inactive lisinopril 2.5 mg tablet RxNorm: 461667 1 Tablet(s) PO daily 05/31/20 18 2017 Inactive metoprolol succinate ER 50 mg tablet,extended release 24 hr RxNorm: 597439 1 Tablet(s) PO daily 05/31/20 18 2017 Inactive levothyroxine 50 mcg tablet RxNorm: 667343 1 Tablet(s) PO daily 05/31/20 18 2017 Inactive TRUEplus Lancets 30 gauge RxNorm: 1 Lancets Miscellaneous QAM 05/31/20 18 2017 Inactive 100/box Ventolin HFA 90 mcg/actuation aerosol inhaler RxNorm: 391930 2 Puff(s) INH QID 05/31/20 18 2017 Inactive Aleve 220 mg capsule RxNorm: 1635508 1 Capsule(s) PO BID 05/31/20 18 2018 Inactive ranitidine 150 mg tablet RxNorm: 300824 1 Tablet(s) PO BID 05/31/20 18 2017 Inactive gabapentin 300 mg capsule RxNorm: 870655 1 Capsule(s) PO TID as needed 05/31/20 18 2017 Inactive atorvastatin 20 mg tablet RxNorm: 287519 1 Tablet(s) PO QHS 05/31/20 18 2017 Inactive True Metrix Glucose Test Strip RxNorm: 1 Test Strips Miscellaneous QAM 05/31/20 18 2017 Inactive 50/container Calcium 600-D3 Plus 600 mg calcium-800 unit-50 mg tablet RxNorm: 1 Tablet(s) PO daily take an additonal tablet for itching. 05/31/20 18 2017 Inactive hydrochlorothiazide 12.5 mg tablet RxNorm: 389427 1 Tablet(s) PO QAM 05/31/20 18 2017 Inactive Flintstones Complete (iron) 18 mg iron chewable tablet RxNorm: 1 Tablet(s) PO daily 05/31/20 18 2017 Inactive True Metrix Glucose Meter RxNorm: miscellaneous 08/17/20 19 2018 Inactive sertraline 50 mg tablet RxNorm: 381544 1 Tablet(s) PO daily 11/28/19 20 2019 Inactive loperamide 2 mg tablet RxNorm: 081439 oral 09/29/20 19 2018 Inactive d-mannose oral powder RxNorm: PO 18 2021 Inactive Symbicort 160 mcg-4.5 mcg/actuation HFA aerosol inhaler RxNorm: 2242523 2 Puff(s) INH BID 08/17/202018 Inactive Medication Administered No Medication Administered data Procedures Procedure Codes Date AHA/REBECCA Classification Assessment CPT-4: DAHA 04/25/2019 Controlled Substance Report CPT-4: CTRSU 04/03 Urinalysis, dip stick CPT-4: 28295 03/28/[address]: 766503471 CPT-4: R14 Unknown Reason For Visit No Reason For Visit data Plan of Care Planned Activity Notes Codes Status Date Patient Education: Patient Medication Summary Completed 05/03/2019 Appointment: Mallory Delgado Nikolay 04/27/2019 Appointment: Charlene Oropeza WPtel: [address] [place], [place] [id number] [id number] 04/25/2019 Appointment: Rasta Palafox WPtel: [address] [place] [address] [facility]452 03/28/2019 Appointment: Rasta Palafox WPtel: [address] [place], [place] [address]eOH[address] E452 02/14/2019 Appointment: Rasta Palafox WPtel: [address] [place], [place] [address]eOH[address] E452 01/31/2019 Appointment: Rasta Palafox WPtel: [address] [facility] [address] [id number] E420 12/27/2018 Referral: Pending Gynecology Referral Information Referral Processed Referral: Pending Pulmonolog y Referral Information Referral Processed Referral: Pending Psychiatry Referral Information Referral Initiated Referral: Pending Respirator y Services Referral Information Referral Initiated Referral: Pending Ophthalmology Referral Information Referral Initiated Referral: [facility] WPtel: [address] [facility] [address] [facility] Stud Driver placed a call out to the patient to notify her that it has been recommended that she be seen by 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 Patient agreed to be seen, does not have a provider of choice and no transportation issues. Stud Driver faxed referral and clinical notes to [facility] in [place], [place] near the patient's home. Patient to [...] seen and prefers a provider in the [place] or [place] area. Stud Driver placed a call out to everyone listed in the area and the only location that was able to accept the patient's insurance was [place] [address] [place] [address] and spoke with Maylin. Maylin asked that the patient's referral, face sheet and visit notes be faxed to . Stud Driver faxed over requested documents. Patient appointment confirmation letter generated and mailed to her home address. Patient to call to schedule an appointment. Processed Referral: [facility] WPtel: [address] [facility] [address] [id number] Patient notified that it has been advised that she be seen by Neurology. Patient agreed to be seen and prefers to be seen by a provider in the [place], [place] area. Patient denies any concerns with transportation, and prefers to schedule her own appointment. Stud Driver placed a call out to [facility] [...]
--- OUTSIDE RECORDS SUMMARY | 2019-05-21 20:00 | XMS_ITS | CCD ---
Author Name Dr Lacey Oropeza DO Address [address] [place] [address] Phone Organization [facility] Phone Care Team Providers Care Credit Risk Specialist Name Role Phone Palomo SMALL ENGINE SPECIALIST, Anna Primary Care Provider Unav ailable Unavailable Chronic Care Management Unavaila ble Summary Purpose DataExchange Insurance Providers Payer name Policy type / Coverage type Covered green party ID Effective Begin Date Effective End Date [employer] [facility] [id number] Unknown Unknown Family history Mother Diagnosis Age [...] Unknown Disability 05/31/[address]: 098225813 Has never s moked or chewed tobacco 05/31/[address]: 989254636 Never drinks alco hol 05/31/2018 Has the [...] Condition Codes Effective Dates Condition St atus Unspecified asthma, uncomplicated ICD-10 : J45.909 ICD-9: 493.90 08/08/2018 Active Polyneuropathy, unspecified ICD-10: G62. 9 ICD-9: [...] complications ICD-10: E11.9 ICD-9: 250.00 10/03/2018 Active Apnea, not elsewhere classified ICD-10: R06.81 [...] ICD -10: Z13.9 ICD-9: V82.9 09/05/2018 Active [facility] (current) use of non-steroidal anti-inflammatories (NSAID) ICD-10: Z79.1 ICD-9: V58.64 06/13/2018 Active Hyperlipidemia, unspecified ICD-10: E78. 5 ICD-9: 272.4 05/30/2018 Active Medications Medication Codes Instructions Start Date Stop Date Status Fill Instructions gabapentin 300 mg capsule RxNorm: 862172 1 Capsule(s) PO TID 05/03/20 19 2018 Inactive Flintstonbree Complete (iron) 18 mg iron chewable tablet RxNorm: 1 Tablet(s) PO daily 04/04/202021 Inactive This refill negates all other refills of this medication True Metrix Glucose Test Strip RxNorm: 1 [facility] 02/01/20 19 2018 Inactive 100/container Alcohol Prep Pads RxNorm: 141113 1 Patch TOP [facility] 02/01/202018 Inactive TRUEplus Lancets 30 gauge RxNorm: 1 Lancets Miscellaneous [facility] 02/01/20 19 2018 Inactive 100/box gabapentin 300 mg capsule RxNorm: 159151 1 Capsule(s) PO TID as needed 02/01/20 19 2018 Inactive lisinopril 2.5 mg tablet RxNorm: 263737 1 Tablet(s) PO daily 12/28/19 19 2018 Inactive buspirone 7.5 mg tablet RxNorm: 045543 1 Tablet(s) PO BID 10/21/192018 Inactive This refill negates all other refills of this medication ranitidine 150 mg tablet RxNorm: 445647 1 Tablet(s) PO BID 10/21/19 19 2018 Inactive This refill negates all other refills of this medication albuterol sulfate 2.5 mg/3 mL (0.083 %) solution for nebulization RxNorm: 252424 1 Vial INH QID 10/21/19 19 2018 [...] this medication gabapentin 300 mg capsule RxNorm: 968928 1 Capsule(s) PO TID as needed 10/21/19 19 2018 Inactive atorvastatin 20 mg tablet RxNorm: 160238 1 Tablet(s) PO QHS 10/21/19 19 2018 Inactive This refill negates all other refills of this medication trazodone 50 mg tablet RxNorm: 419581 1 Tablet(s) PO QHS 10/21/192018 Inactive This refill negates all other refills of this medication Ventolin HFA 90 mcg/actuation aerosol inhaler RxNorm: 583516 2 Puff(s) INH QID 10/21/192018 Inactive Please do not fill early. Please do not auto refill. This refill negates all other refills of this medication Calcium 600-D3 Plus 600 mg calcium-800 unit-50 mg tablet RxNorm: 1 Tablet(s) PO daily take an additonal tablet for itching. 10/21/192018 Inactive This refill negates all other refills of this medication Singulair 10 mg tablet RxNorm: 321720 1 Tablet(s) PO daily 10/21/192018 Inactive This refill negates all other refills of this medication diclofenac sodium 75 mg tablet,delayed release RxNorm: 863005 1 Tablet(s) PO BID 10/21/19 19 2018 Inactive This refill negates all other refills of this medication hydrochlorothiazide 12.5 mg tablet RxNorm: 912566 1 Tablet(s) PO QAM 10/21/19 19 2018 Inactive metoprolol succinate ER 50 mg tablet,extended release 24 hr RxNorm: 285427 1 Tablet(s) PO daily 10/21/19 19 2018 Inactive This refill negates all other refills of this medication levothyroxine 50 mcg tablet RxNorm: 226948 1 Tablet(s) PO daily 10/21/192018 Inactive This refill negates all other refills of this medication cetirizine 10 mg tablet RxNorm: 9373191 1 Tablet(s) PO daily 10/21/192018 Inactive This refill negates all other refills of this medication. Please do not auto refill Flintstones Complete (iron) 18 mg iron chewable tablet RxNorm: 1 Tablet(s) PO daily 10/21/192018 Inactive This refill negates all other refills of this medication buspirone 7.5 mg tablet RxNorm: 398174 1 Tablet(s) PO BID 10/12/19 19 2018 Inactive cetirizine 10 mg tablet RxNorm: 5198830 1 Tablet(s) PO daily 09/28/202018 Inactive Guaiasorb DM 10 mg-100 mg/5 mL oral liquid RxNorm: 690796 10 Milliliter(s) PO As needed every 4 hr 09/24/202018 Inactive Vicks Vaporub 4.7 %-1.2 %-2.6 % topical ointment RxNorm: 7174746 1 Application TOP TID 09/24/20 18 2018 Inactive levmetamfetamine 50 mg nasal inhaler RxNorm: 1 Unit(s) NASAL Q3-4H 09/24/20 18 2017 Inactive sertraline 50 mg tablet RxNorm: 881194 1 Tablet(s) PO daily 09/09/20 18 2018 Inactive Please note dose trazodone 50 mg tablet RxNorm: 179331 1 Tablet(s) PO QHS 09/06/20 18 2018 Inactive sertraline 50 mg tablet RxNorm: 004591 1 Tablet(s) PO daily 09/06/20 18 2017 Inactive amoxicillin 500 mg tablet RxNorm: 471108 1 Tablet(s) PO Q12H 08/31/20 18 2017 Inactive albuterol sulfate 2.5 mg/3 mL (0.083 %) solution for nebulization RxNorm: 502605 1 Vial INH QID 08/10/20 18 2018 Inactive 60/box. Please do not fill early. Please do not auto refill. Prozac 10 mg capsule RxNorm: 362929 1 Capsule(s) PO daily 08/09/20 18 2017 Inactive buspirone 7.5 mg tablet RxNorm: 118883 1 Tablet(s) PO BID 08/09/20 18 2018 Inactive gabapentin 300 mg capsule RxNorm: 907774 1 Capsule(s) PO TID as needed 08/01/20 18 2018 Inactive hydrochlorothiazide 12.5 mg tablet RxNorm: 785726 1 Tablet(s) PO QAM 08/01/20 18 2018 Inactive ranitidine 150 mg tablet RxNorm: 731806 1 Tablet(s) PO BID 08/01/20 18 2018 Inactive Macrobid 100 mg capsule RxNorm: 670543 1 Capsule(s) PO Q12H 06/21/20 18 2017 Inactive Singulair 10 mg tablet RxNorm: 997509 1 Tablet(s) PO daily 06/14/20 18 2018 Inactive Ventolin HFA 90 mcg/actuation aerosol inhaler RxNorm: 2233604 2 Puff(s) INH QID 06/14/20 18 2018 Inactive Singulair 10 mg tablet RxNorm: 230308 1 Tablet(s) PO daily 06/14/20 18 2017 Inactive buspirone 7.5 mg tablet RxNorm: 626484 1 Tablet(s) PO BID 06/14/20 18 2017 Inactive Prozac 10 mg capsule RxNorm: 602409 1 Capsule(s) PO daily 06/14/20 18 2017 Inactive Neilmed Pediatric Sinus Rinse Refill packet RxNorm: 1 Unit Dose NASAL PRN 05/31/20 18 2021 Inactive diclofenac sodium 75 mg tablet,delayed release RxNorm: 641617 1 Tablet(s) PO BID 05/31/20 18 2017 Inactive lisinopril 2.5 mg tablet RxNorm: 414610 1 Tablet(s) PO daily 05/31/20 18 2017 Inactive metoprolol succinate ER 50 mg tablet,extended release 24 hr RxNorm: 202461 1 Tablet(s) PO daily 05/31/20 18 2017 Inactive levothyroxine 50 mcg tablet RxNorm: 592121 1 Tablet(s) PO daily 05/31/20 18 2017 Inactive TRUEplus Lancets 30 gauge RxNorm: 1 Lancets Miscellaneous QAM 05/31/20 18 2017 Inactive 100/box Ventolin HFA 90 mcg/actuation aerosol inhaler RxNorm: 213418 2 Puff(s) INH QID 05/31/20 18 2017 Inactive Aleve 220 mg capsule RxNorm: 1497023 1 Capsule(s) PO BID 05/31/20 18 2018 Inactive ranitidine 150 mg tablet RxNorm: 290171 1 Tablet(s) PO BID 05/31/20 18 2017 Inactive gabapentin 300 mg capsule RxNorm: 165995 1 Capsule(s) PO TID as needed 05/31/20 18 2017 Inactive atorvastatin 20 mg tablet RxNorm: 159424 1 Tablet(s) PO QHS 05/31/20 18 2017 Inactive True Metrix Glucose Test Strip RxNorm: 1 Test Strips Miscellaneous QAM 05/31/20 18 2017 Inactive 50/container Calcium 600-D3 Plus 600 mg calcium-800 unit-50 mg tablet RxNorm: 1 Tablet(s) PO daily take an additonal tablet for itching. 05/31/20 18 2017 Inactive hydrochlorothiazide 12.5 mg tablet RxNorm: 379668 1 Tablet(s) PO QAM 05/31/20 18 2017 Inactive Flintstones Complete (iron) 18 mg iron chewable tablet RxNorm: 1 Tablet(s) PO daily 05/31/20 18 2017 Inactive True Metrix Glucose Meter RxNorm: miscellaneous 08/17/20 19 2018 Inactive sertraline 50 mg tablet RxNorm: 610998 1 Tablet(s) PO daily 11/28/19 20 2019 Inactive loperamide 2 mg tablet RxNorm: 925092 oral 09/29/20 19 2018 Inactive d-mannose oral powder RxNorm: PO 18 2021 Inactive Symbicort 160 mcg-4.5 mcg/actuation HFA aerosol inhaler RxNorm: 5554832 2 Puff(s) INH BID 08/17/202018 Inactive Medication Administered No Medication Administered data Procedures Procedure Codes Date AHA/REBECCA Classification Assessment CPT-4: DAHA 04/25/2019 Controlled Substance Report CPT-4: CTRSU 04/03 Urinalysis, dip stick CPT-4: 31983 03/28/[address]: 987146597 CPT-4: R14 Unknown Reason For Visit No Reason For Visit data Plan of Care Planned Activity Notes Codes Status Date Patient Education: Patient Medication Summary Completed 05/22/2019 Care Plan: Oxygen Orders Ordered 05/22/2019 Appointment: Mallory Delgado [facility] 04/27/2019 Appointment: Charlene Oropeza WPtel: [facility] [id number] [place] [id number] 04/25/2019 Appointment: Rasta Palafox WPtel: [address] [place] [address] [id number] [place] [id number] 03/28/2019 Appointment: Rasta Palafox WPtel: [facility] [id number] [place] [id number] 02/14/2019 Appointment: Rasta Palafox WPtel: [id number] [place] [address] 01/31/2019 Appointment: Rasta Palafox WPtel: [address] [facility] [address] [facility] [address] [id number] 12/27/2018 Referral: Pending Gynecology Referral Information Referral Processed Referral: Pending Pulmonolog y Referral Information Referral Processed Referral: Pending Psychiatry Referral Information Referral Initiated Referral: Pending Respirator y Services Referral Information Referral Initiated Referral: Pending Ophthalmology Referral Information Referral Initiated Referral: [facility] WPtel: [address] [facility] [facility] [address] Chemistry Associate placed a call out to the patient to notify her that it has been recommended that she be seen by 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 Patient agreed to be seen, does not have a provider of choice and no transportation issues. Chemistry Associate faxed referral and clinical notes to [facility] in [place], [place] near the patient's home. Patient [...] seen and prefers a provider in the [place] or [place] area. Chemistry Associate placed a call out to everyone listed in the area and the only location that was able to accept the patient's insurance was [address] [id number] and spoke with Maylin. Maylin asked that the patient's referral, face sheet and visit notes be faxed to . Chemistry Associate faxed over requested documents. Patient appointment confirmation letter generated and mailed to her home address. Patient to call to schedule an appointment. Processed Referral: [facility] WPtel: [address] [id number] Patient notified that it has been advised that she be seen by Neurology. Patient agreed to be seen and prefers to be seen by a provider in the [place], [place] area. Patient denies any concerns with transportation, and prefers to schedule her own appointment. Chemistry Associate placed a call out to [facility] and spoke with Neeraj P: who confirmed that their office is able to accept new patients and the patient's insurance. After confirming the providers fax number, proposal manager writer faxed over the patient's referral, and [...]
--- OUTSIDE RECORDS SUMMARY | 2019-05-23 20:00 | XMS_ITS | CCD ---
Author Name Dr Lacey Oropeza DO Address [address] [facility] [address] [place] [address] Phone Organization [facility] Phone Care Team Providers Care Pyrotechnist Name Role Phone Palomo DESK OPERATOR, Anna Primary Care Provider Unav ailable Unavailable Chronic Care Management Unavaila ble Summary Purpose DataExchange Insurance Providers Payer name Policy type / Coverage type Covered green party ID Effective Begin Date Effective End Date [employer] [facility] [id number] Unknown Unknown Family history Mother Diagnosis Age [...] Unknown Disability 05/31/[address]: 328008337 Has never s moked or chewed tobacco 05/31/[address]: 595582671 Never drinks alco hol 05/31/2018 Has the [...] classified ICD-10: R06.81 ICD-9: 786.03 01/31/2019 Active Encounter for immunization ICD-10: Z23 ICD-9: V03.9 04/25/2019 Active Encounter for screening, unspecified ICD -10: Z13.9 ICD-9: V82.9 09/05/2018 Active Essential (primary) hypertension ICD-10: I10 ICD-9: 401.9 10/03/2018 Active Hyperlipidemia, unspecified ICD-10: E78. 5 ICD-9: 272.4 05/30/2018 Active Hypothyroidism, unspecified ICD-10: E03. 9 ICD-9: 244.9 09/05/2018 Active Mixed incontinence ICD-10: N39.46 ICD-9: 788.33 05/24/2019 Active Type 2 diabetes mellitus wit hout complications ICD-10: E11.9 ICD-9: 250.00 10/03/2018 Active Unspecified asthma, uncomplicated ICD-10 : J45.909 ICD-9: 493.90 08/08/2018 Active Polyneuropathy, unspecified ICD-10: G62. 9 ICD-9: 356.9 05/30/2018 Active Patient Not Seen ICD-10: UXZ.01 ICD-9: XZ0.1 04/27/2019 Active Encounter for screening for malignant neoplasm of cervix ICD-10: Z12.4 ICD-9: V76.2 04/25/2019 Active Hypertensive heart disease w ith heart failure ICD-10: I11.0 ICD-9: 402.91 04/25/2019 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 ICD-10: Z79.899 ICD-9: V58.69 04/25/2019 Active Body mass index (BMI) 50-59. 9 , adult ICD-10: Z68.43 ICD-9: V85.43 05/30/2018 Active Chest pain, unspecified ICD-10: R07.9 ICD-9: 786.50 11/29/2018 Active Encounter for preprocedural cardiovascular examination ICD-10: Z01.810 ICD-9: V72.81 03/28/2019 Active Dyspnea, unspecified ICD-10: R06.00 ICD-9: 786.09 02/08/2019 Active Post-traumatic stress disord er, unspecified ICD-10: F43.10 ICD-9: 309.81 09/05/2018 Active Wheezing ICD-10: R06.2 ICD-9: 786.07 08/08/2018 Active Abnormal electrocardiogram [ ECG] [EKG] ICD-10: R94.31 ICD-9: 794.31 05/30/2018 Active Edema, unspecified ICD-10: R60.9 ICD-9: 782.3 07/11/2018 Active Adjustment disorder with mix ed anxiety and depressed mood ICD-10: F43.23 ICD-9: 309.28 09/05/2018 Active Headache ICD-10: R51 ICD-9: 784.0 10/03/2018 Active Acute upper respiratory infe ction, unspecified ICD-10: J06.9 ICD-9: 465.9 09/23/2018 Resolved Chronic kidney disease, unspecified ICD- 10: N18.9 ICD-9: 585.9 10/03/2018 Resolved terminal makeup operator (current) use of non-steroidal anti-inflammatories (NSAID) ICD-10: Z79.1 ICD-9: V58.64 06/13/2018 Active Medications Medication Codes Instructions Start Date Stop Date Status Fill Instructions gabapentin 300 mg capsule RxNorm: 563864 1 Capsule(s) PO TID 05/03/20 19 2018 Inactive Flintstones Complete (iron) 18 mg iron chewable tablet RxNorm: 1 Tablet(s) PO daily 04/04/202021 Inactive This refill negates all other refills of this medication True Metrix Glucose Test Strip RxNorm: 1 Test Strips Miscellaneous [facility] 02/01/20 19 2018 Inactive 100/container Alcohol Prep Pads RxNorm: 516941 1 Patch TOP [facility] 02/01/202018 Inactive TRUEplus Lancets 30 gauge RxNorm: 1 Lancets Miscellaneous QA 02/01/20 19 2018 Inactive 100/box gabapentin 300 mg capsule RxNorm: 403341 1 Capsule(s) PO TID as needed 02/01/202018 Inactive lisinopril 2.5 mg tablet RxNorm: 648089 1 Tablet(s) PO daily 12/28/19 19 2018 Inactive buspirone 7.5 mg tablet RxNorm: 727194 1 Tablet(s) PO BID 01/2018 Inactive This refill negates all other refills of this medication ranitidine 150 mg tablet RxNorm: 471637 1 Tablet(s) PO BID 10/21/192018 Inactive This refill negates all other refills of this medication albuterol sulfate 2.5 mg/3 mL (0.083 %) solution for nebulization RxNorm: 116308 1 Vial INH QID 10/21/192018 Inactive 60/box. [...] this medication gabapentin 300 mg capsule RxNorm: 230184 1 Capsule(s) PO TID as needed 10/21/192018 Inactive atorvastatin 20 mg tablet RxNorm: 000091 1 Tablet(s) PO QHS 10/21/192018 Inactive This refill negates all other refills of this medication trazodone 50 mg tablet RxNorm: 605198 1 Tablet(s) PO QHS 10/21/192018 Inactive This refill negates all other refills of this medication Ventolin HFA 90 mcg/actuation aerosol inhaler RxNorm: 417674 2 Puff(s) INH QID 10/21/192018 Inactive Please do not fill early. Please do not auto refill. This refill negates all other refills of this medication Calcium 600-D3 Plus 600 mg calcium-800 unit-50 mg tablet RxNorm: 1 Tablet(s) PO daily take an additonal tablet for itching. 10/21/192018 Inactive This refill negates all other refills of this medication Singulair 10 mg tablet RxNorm: 161456 1 Tablet(s) PO daily 10/21/192018 Inactive This refill negates all other refills of this medication diclofenac sodium 75 mg tablet,delayed release RxNorm: 955261 1 Tablet(s) PO BID 10/21/19 19 2018 Inactive This refill negates all other refills of this medication hydrochlorothiazide 12.5 mg tablet RxNorm: 097340 1 Tablet(s) PO QAM 10/21/19 19 2018 Inactive metoprolol succinate ER 50 mg tablet,extended release 24 hr RxNorm: 664389 1 Tablet(s) PO daily 10/21/19 19 2018 Inactive This refill negates all other refills of this medication levothyroxine 50 mcg tablet RxNorm: 451097 1 Tablet(s) PO daily 10/21/19 19 2018 Inactive This refill negates all other refills of this medication cetirizine 10 mg tablet RxNorm: 2352618 1 Tablet(s) PO daily 10/21/19 19 2018 Inactive This refill negates all other refills of this medication. Please do not auto refill Flintstones Complete (iron) 18 mg iron chewable tablet RxNorm: 1 Tablet(s) PO daily 10/21/19 19 2018 Inactive This refill negates all other refills of this medication buspirone 7.5 mg tablet RxNorm: 470917 1 Tablet(s) PO BID 10/12/19 19 2018 Inactive cetirizine 10 mg tablet RxNorm: 6430580 1 Tablet(s) PO daily 09/28/202018 Inactive Guaiasorb DM 10 mg-100 mg/5 mL oral liquid RxNorm: 256490 10 Milliliter(s) PO As needed every 4 hr 09/24/20 18 2018 Inactive Vicks Vaporub 4.7 %-1.2 %-2.6 % topical ointment RxNorm: 4563923 1 Application TOP TID 09/24/20 18 2018 Inactive levmetamfetamine 50 mg nasal inhaler RxNorm: 1 Unit(s) NASAL Q3-4H 09/24/20 18 2017 Inactive sertraline 50 mg tablet RxNorm: 551328 1 Tablet(s) PO daily 09/09/20 18 2018 Inactive Please note dose trazodone 50 mg tablet RxNorm: 830865 1 Tablet(s) PO QHS 09/06/20 18 2018 Inactive sertraline 50 mg tablet RxNorm: 539743 1 Tablet(s) PO daily 09/06/20 18 2017 Inactive amoxicillin 500 mg tablet RxNorm: 557353 1 Tablet(s) PO Q12H 08/31/20 18 2017 Inactive albuterol sulfate 2.5 mg/3 mL (0.083 %) solution for nebulization RxNorm: 516942 1 Vial INH QID 08/10/20 18 2018 Inactive 60/box. Please do not fill early. Please do not auto refill. Prozac 10 mg capsule RxNorm: 716385 1 Capsule(s) PO daily 08/09/20 18 2017 Inactive buspirone 7.5 mg tablet RxNorm: 891129 1 Tablet(s) PO BID 08/09/20 18 2018 Inactive gabapentin 300 mg capsule RxNorm: 528775 1 Capsule(s) PO TID as needed 08/01/20 18 2018 Inactive hydrochlorothiazide 12.5 mg tablet RxNorm: 172960 1 Tablet(s) PO QAM 08/01/20 18 2018 Inactive ranitidine 150 mg tablet RxNorm: 687391 1 Tablet(s) PO BID 08/01/20 18 2018 Inactive Macrobid 100 mg capsule RxNorm: 246427 1 Capsule(s) PO Q12H 06/21/20 18 2017 Inactive Singulair 10 mg tablet RxNorm: 563774 1 Tablet(s) PO daily 06/14/20 18 2018 Inactive Ventolin HFA 90 mcg/actuation aerosol inhaler RxNorm: 0087823 2 Puff(s) INH QID 06/14/20 18 2018 Inactive Singulair 10 mg tablet RxNorm: 464856 1 Tablet(s) PO daily 06/14/20 18 2017 Inactive buspirone 7.5 mg tablet RxNorm: 213162 1 Tablet(s) PO BID 06/14/20 18 2017 Inactive Prozac 10 mg capsule RxNorm: 516989 1 Capsule(s) PO daily 06/14/20 18 2017 Inactive Neilmed Pediatric Sinus Rinse Refill packet RxNorm: 1 Unit Dose NASAL PRN 05/31/20 18 2021 Inactive diclofenac sodium 75 mg tablet,delayed release RxNorm: 730228 1 Tablet(s) PO BID 05/31/20 18 2017 Inactive lisinopril 2.5 mg tablet RxNorm: 803036 1 Tablet(s) PO daily 05/31/20 18 2017 Inactive metoprolol succinate ER 50 mg tablet,extended release 24 hr RxNorm: 302709 1 Tablet(s) PO daily 05/31/20 18 2017 Inactive levothyroxine 50 mcg tablet RxNorm: 026421 1 Tablet(s) PO daily 05/31/20 18 2017 Inactive TRUEplus Lancets 30 gauge RxNorm: 1 Lancets Miscellaneous QAM 05/31/20 18 2017 Inactive 100/box Ventolin HFA 90 mcg/actuation aerosol inhaler RxNorm: 427162 2 Puff(s) INH QID 05/31/20 18 2017 Inactive Aleve 220 mg capsule RxNorm: 3486487 1 Capsule(s) PO BID 05/31/20 18 2018 Inactive ranitidine 150 mg tablet RxNorm: 814694 1 Tablet(s) PO BID 05/31/20 18 2017 Inactive gabapentin 300 mg capsule RxNorm: 351286 1 Capsule(s) PO TID as needed 05/31/20 18 2017 Inactive atorvastatin 20 mg tablet RxNorm: 516906 1 Tablet(s) PO QHS 05/31/20 18 2017 Inactive True Metrix Glucose Test Strip RxNorm: 1 Test Strips Miscellaneous QAM 05/31/20 18 2017 Inactive 50/container Calcium 600-D3 Plus 600 mg calcium-800 unit-50 mg tablet RxNorm: 1 Tablet(s) PO daily take an additonal tablet for itching. 05/31/20 18 2017 Inactive hydrochlorothiazide 12.5 mg tablet RxNorm: 878006 1 Tablet(s) PO QAM 05/31/20 18 2017 Inactive Flintstones Complete (iron) 18 mg iron chewable tablet RxNorm: 1 Tablet(s) PO daily 05/31/20 18 2017 Inactive True Metrix Glucose Meter RxNorm: miscellaneous 08/17/20 19 2018 Inactive sertraline 50 mg tablet RxNorm: 369566 1 Tablet(s) PO daily 11/28/19 20 2019 Inactive loperamide 2 mg tablet RxNorm: 561633 oral 09/29/20 19 2018 Inactive d-mannose oral powder RxNorm: PO 18 2021 Inactive Symbicort 160 mcg-4.5 mcg/actuation HFA aerosol inhaler RxNorm: 1769130 2 Puff(s) INH BID 08/17/20 19 2018 Inactive Medication Administered No Medication Administered data Procedures Procedure Codes Date Tobacco Assessment/Screening CPT-4: TCA Patient Health Questionnaire CPT-4: DPHQ PNEUMOCOCCAL VACC 13 JUNO IM CPT-4: 15102 05/04 Patient Health Questionnaire Little interest or pleasure in doing things?/0 = Not at all, Feeling down, depressed or hopeless?/0 = Not at all, Trouble falling or staying [...] Plan: Depression/Patient negative for depression. No plan indicated CPT-4: DPHQUnknown 05/24/2019 Tobacco Assessment/Screening Tobacco Use/Never used tobacco, Plan/No cessation intervention due to other medical reason N/A CPT-4: TCAUnknown 9 Admin pneumococ vac CPT-4: G0009 05/24/2019 AHA/REBECCA Classification Assessment CPT-4: DAHA 04/25/2019 Controlled Substance Report CPT-4: CTRSU 04/03 Urinalysis, dip stick CPT-4: 23534 03/28/[address]: [id number] CPT-4: R14 Unknown Vital Signs Date Vital 05/24/2019 Blood Pressure 1: 110/68 Code: 8480-6 BMI: 56.8 Code: 89580-4 Heart Rate 1: 83 bpm Height: 4'11 Code: 8302-2 Respiratory Rate: 18 bpm SpO2: 99% Temperature: 36.5 (C) / 97.7 (F) Weight: 281 lbs Code: 71760-7 Reason For Visit Reason For Visit Effective Dates Notes diabetes mellitus 05/24/2019 hypothyroidism 05/24/2019 hyperlipidemia disease 05/24/2019 urinary urgency 05/24/2019 Encounters Encounter Performer Location Location Address Codes Magdi e HOME VISIT EST PATIENT Diagnosis: Mixed incontinence[ICD 10: N39.46] Diagnosis: Type 2 diabetes mellitus without complications[IC D10: E11.9] Diagnosis: Hypothyroidism, unspecified[ICD1 0: E03.9] Diagnosis: Hyperlipidemia, unspecified[ICD1 0: E78.5] Diagnosis: Apnea, not elsewhere classified[ICD10 : R06.81] Diagnosis: Essential (primary) hypertension[ICD 10: I10] Diagnosis: Encounter for screening, unspecified[ICD1 0: Z13.9] Diagnosis: Encounter for immunization[ICD 10: Z23] Charlene Tejada Office [id number] [place], [place] [id number] CPT-4: 62237 05/24/2019 Plan of Care Planned Activity Notes Codes Status Date Patient Education: Patient Medication Summary Completed 05/24/2019 Patient Education: Obesity Completed 05/24/2019 Patient Education: Diabetes Complete d 05/24/2019 Care Plan: Incontinence Supplies Ordered 05/24/2019 Care Plan: External Outpatient Sleep Study Ordered 9 Appointment: Mallory Delgado E452 04/27/2019 Appointment: Charlene Oropeza WPtel: [address] [facility] [address] [id number] 04/25/2019 Appointment: Rasta Palafox WPtel: [address] [facility] [address] [id number] 03/28/2019 Appointment: Rasta Palafox WPtel: [address] [facility] b [id number] E452 02/14/2019 Appointment: Rasta Palafox WPtel: [address] [facility] b [id number] E452 01/31/2019 Appointment: Rasta Palafox WPtel: [address] [facility] b [id number] E420 12/27/2018 Referral: Pending Gynecology Referral Information Referral Processed Referral: Pending Pulmonolog y Referral Information Referral Processed Referral: Pending Psychiatry Referral Information Referral Initiated Referral: Pending Respirator y Services Referral Information Referral Initiated Referral: Pending Ophthalmology Referral Information Referral Initiated Referral: [facility] WPtel: [address] [place] [address] [employer] placed a call out to the patient to notify her that it has been recommended that she be seen by 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 Patient agreed to be seen, does not have a provider of choice and no transportation issues. [facility] faxed referral and clinical notes to [facility] in [place], [place] near the patient's home. Patient to [...] seen and prefers a provider in the [place] or [facility]. [employer] placed a call out to everyone listed in the area and the only location that was able to accept the patient's insurance was [place] [address] [place] [address] and spoke with Maylin. Maylin asked that the patient's referral, face sheet and visit notes be faxed to . [employer] faxed over requested documents. Patient appointment confirmation letter generated and mailed to her home address. Patient to call to schedule an appointment. Processed Referral: [facility] y WPtel: [address] [place] [address] Patient notified that it has been advised that she be seen by Neurology. Patient agreed to be seen and prefers to be seen by a provider in the [place], [place] area. Patient denies any concerns with transportation, and prefers to schedule her own appointment. [employer] placed a call out to [facility] and spoke with Neeraj [...]
--- OUTSIDE RECORDS SUMMARY | 2019-05-28 20:00 | XMS_ITS | CCD ---
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 Caponizer Name Role Phone Palomo KING, Anna Primary Care Provider Unav ailable Unavailable Chronic Care Management Unavaila ble Summary Purpose DataExchange Insurance Providers Payer name Policy type / Coverage type Covered republican ID Effective Begin Date Effective End Date SUKI BUTTS [facility] [id number] Unknown Unknown Family history Mother Diagnosis Age [...] Unknown Disability 05/31/[address]: 926310620 Has never s moked or chewed tobacco 05/31/[address]: 099083215 Never drinks alco hol 05/31/2018 Has the [...] ICD-10: I11.0 ICD-9: 402.91 04/25/2019 Active Other senior living (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 ICD-10: Z79.899 ICD-9: [...] ICD- 10: N18.9 ICD-9: 585.9 10/03/2018 Resolved [facility] (current) use of non-steroidal anti-inflammatories (NSAID) ICD-10: Z79.1 ICD-9: V58.64 06/13/2018 Active Medications Medication Codes Instructions Start Date Stop Date Status Fill Instructions TRUEplus Lancets 30 gauge RxNorm: 1 Lancets Miscellaneous QA 05/29/20 19 2018 Inactive 100/box gabapentin 300 mg capsule RxNorm: 894563 1 Capsule(s) PO TID 05/03/20 19 2018 Inactive Flintstones Complete (iron) 18 mg iron chewable tablet RxNorm: 1 Tablet(s) PO daily 04/04/20 19 2021 Inactive This refill negates all other refills of this medication True Metrix Glucose Test Strip RxNorm: 1 Test Strips Miscellaneous QA 02/01/20 19 2018 Inactive 100/container Alcohol Prep Pads RxNorm: 716908 1 Patch TOP [facility] 02/01/202018 Inactive gabapentin 300 mg capsule RxNorm: 054034 1 Capsule(s) PO TID as needed 02/01/20 19 2018 Inactive TRUEplus Lancets 30 gauge RxNorm: 1 Lancets Miscellaneous QAM 02/01/202018 Inactive 100/box lisinopril 2.5 mg tablet RxNorm: 709225 1 Tablet(s) PO daily 12/28/19 19 2018 Inactive buspirone 7.5 mg tablet RxNorm: 827464 1 Tablet(s) PO BID 10/21/192018 Inactive This refill negates all other refills of this medication ranitidine 150 mg tablet RxNorm: 309544 1 Tablet(s) PO BID 10/21/19 19 2018 Inactive This refill negates all other refills of this medication albuterol sulfate 2.5 mg/3 mL (0.083 %) solution for nebulization RxNorm: 672416 1 Vial INH QID 10/21/19 19 2018 [...] this medication gabapentin 300 mg capsule RxNorm: 079568 1 Capsule(s) PO TID as needed 10/21/19 19 2018 Inactive atorvastatin 20 mg tablet RxNorm: 659016 1 Tablet(s) PO QHS 10/21/19 19 2018 Inactive This refill negates all other refills of this medication trazodone 50 mg tablet RxNorm: 291365 1 Tablet(s) PO QHS 10/21/192018 Inactive This refill negates all other refills of this medication Ventolin HFA 90 mcg/actuation aerosol inhaler RxNorm: 007262 2 Puff(s) INH QID 10/21/192018 Inactive Please do not fill early. Please do not auto refill. This refill negates all other refills of this medication Calcium 600-D3 Plus 600 mg calcium-800 unit-50 mg tablet RxNorm: 1 Tablet(s) PO daily take an additonal tablet for itching. 10/21/19 19 2018 Inactive This refill negates all other refills of this medication Singulair 10 mg tablet RxNorm: 026151 1 Tablet(s) PO daily 10/21/19 19 2018 Inactive This refill negates all other refills of this medication diclofenac sodium 75 mg tablet,delayed release RxNorm: 609261 1 Tablet(s) PO BID 10/21/19 19 2018 Inactive This refill negates all other refills of this medication hydrochlorothiazide 12.5 mg tablet RxNorm: 583034 1 Tablet(s) PO QAM 10/21/19 19 2018 Inactive metoprolol succinate ER 50 mg tablet,extended release 24 hr RxNorm: 034953 1 Tablet(s) PO daily 10/21/19 19 2018 Inactive This refill negates all other refills of this medication levothyroxine 50 mcg tablet RxNorm: 766773 1 Tablet(s) PO daily 10/21/19 19 2018 Inactive This refill negates all other refills of this medication cetirizine 10 mg tablet RxNorm: 8516212 1 Tablet(s) PO daily 10/21/192018 Inactive This refill negates all other refills of this medication. Please do not auto refill Flintstones Complete (iron) 18 mg iron chewable tablet RxNorm: 1 Tablet(s) PO daily 10/21/19 19 2018 Inactive This refill negates all other refills of this medication buspirone 7.5 mg tablet RxNorm: 850328 1 Tablet(s) PO BID 10/12/192018 Inactive cetirizine 10 mg tablet RxNorm: 6950782 1 Tablet(s) PO daily 09/28/202018 Inactive Guaiasorb DM 10 mg-100 mg/5 mL oral liquid RxNorm: 386036 10 Milliliter(s) PO As needed every 4 hr 09/24/20 18 2018 Inactive Vicks Vaporub 4.7 %-1.2 %-2.6 % topical ointment RxNorm: 5782438 1 Application TOP TID 09/24/20 18 2018 Inactive levmetamfetamine 50 mg nasal inhaler RxNorm: 1 Unit(s) NASAL Q3-4H 09/24/20 18 2017 Inactive sertraline 50 mg tablet RxNorm: 505265 1 Tablet(s) PO daily 09/09/20 18 2018 Inactive Please note dose trazodone 50 mg tablet RxNorm: 941075 1 Tablet(s) PO QHS 09/06/20 18 2018 Inactive sertraline 50 mg tablet RxNorm: 422761 1 Tablet(s) PO daily 09/06/20 18 2017 Inactive amoxicillin 500 mg tablet RxNorm: 451336 1 Tablet(s) PO Q12H 08/31/20 18 2017 Inactive albuterol sulfate 2.5 mg/3 mL (0.083 %) solution for nebulization RxNorm: 433586 1 Vial INH QID 08/10/20 18 2018 Inactive 60/box. Please do not fill early. Please do not auto refill. Prozac 10 mg capsule RxNorm: 496586 1 Capsule(s) PO daily 08/09/20 18 2017 Inactive buspirone 7.5 mg tablet RxNorm: 525785 1 Tablet(s) PO BID 08/09/20 18 2018 Inactive gabapentin 300 mg capsule RxNorm: 653267 1 Capsule(s) PO TID as needed 08/01/20 18 2018 Inactive hydrochlorothiazide 12.5 mg tablet RxNorm: 424169 1 Tablet(s) PO QAM 08/01/20 18 2018 Inactive ranitidine 150 mg tablet RxNorm: 048759 1 Tablet(s) PO BID 08/01/20 18 2018 Inactive Macrobid 100 mg capsule RxNorm: 344209 1 Capsule(s) PO Q12H 06/21/20 18 2017 Inactive Singulair 10 mg tablet RxNorm: 796515 1 Tablet(s) PO daily 06/14/20 18 2018 Inactive Ventolin HFA 90 mcg/actuation aerosol inhaler RxNorm: 4716677 2 Puff(s) INH QID 06/14/20 18 2018 Inactive Singulair 10 mg tablet RxNorm: 287377 1 Tablet(s) PO daily 06/14/20 18 2017 Inactive buspirone 7.5 mg tablet RxNorm: 217645 1 Tablet(s) PO BID 06/14/20 18 2017 Inactive Prozac 10 mg capsule RxNorm: 391771 1 Capsule(s) PO daily 06/14/20 18 2017 Inactive Neilmed Pediatric Sinus Rinse Refill packet RxNorm: 1 Unit Dose NASAL PRN 05/31/20 18 2021 Inactive diclofenac sodium 75 mg tablet,delayed release RxNorm: 999363 1 Tablet(s) PO BID 05/31/20 18 2017 Inactive lisinopril 2.5 mg tablet RxNorm: 192543 1 Tablet(s) PO daily 05/31/20 18 2017 Inactive metoprolol succinate ER 50 mg tablet,extended release 24 hr RxNorm: 356286 1 Tablet(s) PO daily 05/31/20 18 2017 Inactive levothyroxine 50 mcg tablet RxNorm: 792954 1 Tablet(s) PO daily 05/31/20 18 2017 Inactive TRUEplus Lancets 30 gauge RxNorm: 1 Lancets Miscellaneous QAM 05/31/20 18 2017 Inactive 100/box Ventolin HFA 90 mcg/actuation aerosol inhaler RxNorm: 677547 2 Puff(s) INH QID 05/31/20 18 2017 Inactive Aleve 220 mg capsule RxNorm: 9945957 1 Capsule(s) PO BID 05/31/20 18 2018 Inactive ranitidine 150 mg tablet RxNorm: 923857 1 Tablet(s) PO BID 05/31/20 18 2017 Inactive gabapentin 300 mg capsule RxNorm: 256150 1 Capsule(s) PO TID as needed 05/31/20 18 2017 Inactive atorvastatin 20 mg tablet RxNorm: 330646 1 Tablet(s) PO QHS 05/31/20 18 2017 Inactive True Metrix Glucose Test Strip RxNorm: 1 Test Strips Miscellaneous QAM 05/31/20 18 2017 Inactive 50/container Calcium 600-D3 Plus 600 mg calcium-800 unit-50 mg tablet RxNorm: 1 Tablet(s) PO daily take an additonal tablet for itching. 05/31/20 18 2017 Inactive hydrochlorothiazide 12.5 mg tablet RxNorm: 206524 1 Tablet(s) PO QAM 05/31/20 18 2017 Inactive César Complete (iron) 18 mg iron chewable tablet RxNorm: 1 Tablet(s) PO daily 05/31/20 18 2017 Inactive True Metrix Glucose Meter RxNorm: miscellaneous 08/17/20 19 2018 Inactive sertraline 50 mg tablet RxNorm: 319303 1 Tablet(s) PO daily 11/28/19 20 2019 Inactive loperamide 2 mg tablet RxNorm: 612202 oral 09/29/20 19 2018 Inactive d-mannose oral powder RxNorm: PO 18 2021 Inactive Symbicort 160 mcg-4.5 mcg/actuation HFA aerosol inhaler RxNorm: 8073545 2 Puff(s) INH BID 08/17/20 19 2018 Inactive Medication Administered No Medication Administered data Procedures Procedure Codes Date Tobacco Assessment/Screening CPT-4: TCA Patient Health Questionnaire CPT-4: DPHQ AHA/REBECCA Classification Assessment CPT-4: DAHA 04/25/2019 Controlled Substance Report CPT-4: CTRSU 04/03 Urinalysis, dip stick CPT-4: 39687 03/28/[address]: 131329685 CPT-4: R14 Unknown Reason For Visit No Reason For Visit data Plan of Care Planned Activity Notes Codes Status Date Referral: Pending Gynecology Referral Information Referral Processed Referral: Pending Pulmonolog y Referral Information Referral Processed Referral: Pending Psychiatry Referral Information Referral Initiated Referral: Pending Respirator y Services Referral Information Referral Initiated Referral: Pending Ophthalmol ogy Referral Information Referral Initiated Referral: [facility] WPtel: [address] [place] [address] [address] [place] [address] [place] Warehousing Technician placed a call out to the patient to notify her that it has been recommended that she be seen by 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 Patient agreed to be seen, does not have a provider of choice and no transportation issues. Warehousing Technician faxed referral and clinical notes to [facility] in [place], [place] near the patient's home. Patient to [...] seen and prefers a provider in the [place] or [place] area. Warehousing Technician placed a call out to everyone listed in the area and the only location that was able to accept the patient's insurance was [facility] [place] [address] and spoke with Maylin. Maylin asked that the patient's referral, face sheet and visit notes be faxed to . Warehousing Technician faxed over requested documents. Patient appointment confirmation letter generated and mailed to her home address. Patient to call to schedule an appointment. Processed Referral: [facility] WPtel: [address] [place] [address] Patient notified that it has been advised that she be seen by Neurology. Patient agreed to be seen and prefers to be seen by a provider in the [place], [place] area. Patient denies any concerns with transportation, and prefers to schedule her own appointment. Warehousing Technician placed a call out to [facility] and spoke with Neeraj Mcfarland: who confirmed that their office is able to accept new patients and the patient's insurance. After confirming the providers fax number, newswriter faxed over the patient's referral, and most [...]
--- OUTSIDE RECORDS SUMMARY | 2019-06-06 20:00 | XMS_ITS | CCD ---
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 Distribution Tech Name Role Phone Palomo KING, Anna Primary Care Provider Unav ailable Unavailable Chronic Care Management Unavaila ble Summary Purpose DataExchange Insurance Providers Payer name Policy type / Coverage type Covered green party ID Effective Begin Date Effective End Date SUKI BUTTS [facility] [id number] Unknown Unknown Family history Mother Diagnosis Age [...] Unknown Disability 05/31/[address]: 170048495 Has never s moked or chewed tobacco 05/31/[address]: 529734607 Never drinks alco hol 05/31/2018 Has the [...] ICD- 10: N18.9 ICD-9: 585.9 10/03/2018 Resolved group home (current) use of non-steroidal anti-inflammatories (NSAID) ICD-10: Z79.1 ICD-9: V58.64 06/13/2018 Active Medications Medication Codes Instructions Start Date Stop Date Status Fill Instructions atorvastatin 20 mg tablet RxNorm: 876053 1 Tablet(s) PO QHS 06/07/20 19 2018 Inactive This refill negates all other refills of this medication TRUEplus Lancets 30 gauge RxNorm: 1 Lancets Miscellaneous [facility] 05/29/20 19 2018 Inactive 100/box gabapentin 300 mg capsule RxNorm: 497143 1 Capsule(s) PO TID 05/03/20 19 2018 Inactive Flnickolas Complete (iron) 18 mg iron chewable tablet RxNorm: 1 Tablet(s) PO daily 04/04/20 19 2021 Inactive This refill negates all other refills of this medication True Metrix Glucose Test Strip RxNorm: 1 Test Strips Miscellaneous [facility] 02/01/202018 Inactive 100/container Alcohol Prep Pads RxNorm: 015902 1 Patch TOP [facility] 02/01/20 19 2018 Inactive gabapentin 300 mg capsule RxNorm: 186781 1 Capsule(s) PO TID as needed 02/01/20 19 2018 Inactive TRUEplus Lancets 30 gauge RxNorm: 1 Lancets Miscellaneous [facility] 02/01/20 19 2018 Inactive 100/box lisinopril 2.5 mg tablet RxNorm: 421566 1 Tablet(s) PO daily 12/28/19 19 2018 Inactive buspirone 7.5 mg tablet RxNorm: 755525 1 Tablet(s) PO BID 10/21/19 19 2018 Inactive This refill negates all other refills of this medication ranitidine 150 mg tablet RxNorm: 100945 1 Tablet(s) PO BID 10/21/19 19 2018 Inactive This refill negates all other refills of this medication albuterol sulfate 2.5 mg/3 mL (0.083 %) solution for nebulization RxNorm: 570821 1 Vial INH QID 10/21/19 19 2018 [...] this medication gabapentin 300 mg capsule RxNorm: 827959 1 Capsule(s) PO TID as needed 10/21/19 19 2018 Inactive atorvastatin 20 mg tablet RxNorm: 814073 1 Tablet(s) PO QHS 10/21/192018 Inactive This refill negates all other refills of this medication trazodone 50 mg tablet RxNorm: 014119 1 Tablet(s) PO QHS 10/21/19 19 2018 Inactive This refill negates all other refills of this medication Ventolin HFA 90 mcg/actuation aerosol inhaler RxNorm: 528972 2 Puff(s) INH QID 10/21/192018 Inactive Please do not fill early. Please do not auto refill. This refill negates all other refills of this medication Calcium 600-D3 Plus 600 mg calcium-800 unit-50 mg tablet RxNorm: 1 Tablet(s) PO daily take an additonal tablet for itching. 10/21/19 19 2018 Inactive This refill negates all other refills of this medication Singulair 10 mg tablet RxNorm: 569523 1 Tablet(s) PO daily 10/21/1917/ 2019 Inactive This refill negates all other refills of this medication diclofenac sodium 75 mg tablet,delayed release RxNorm: 509798 1 Tablet(s) PO BID 10/21/19 19 2018 Inactive This refill negates all other refills of this medication hydrochlorothiazide 12.5 mg tablet RxNorm: 021181 1 Tablet(s) PO QAM 10/21/19 19 2018 Inactive metoprolol succinate ER 50 mg tablet,extended release 24 hr RxNorm: 492585 1 Tablet(s) PO daily 10/21/19 19 2018 Inactive This refill negates all other refills of this medication levothyroxine 50 mcg tablet RxNorm: 714077 1 Tablet(s) PO daily 10/21/19 19 2018 Inactive This refill negates all other refills of this medication cetirizine 10 mg tablet RxNorm: 3462744 1 Tablet(s) PO daily 10/21/192018 Inactive This refill negates all other refills of this medication. Please do not auto refill Flintstones Complete (iron) 18 mg iron chewable tablet RxNorm: 1 Tablet(s) PO daily 10/21/192018 Inactive This refill negates all other refills of this medication buspirone 7.5 mg tablet RxNorm: 918780 1 Tablet(s) PO BID 10/12/192018 Inactive cetirizine 10 mg tablet RxNorm: 1854521 1 Tablet(s) PO daily 09/28/202018 Inactive Guaiasorb DM 10 mg-100 mg/5 mL oral liquid RxNorm: 698070 10 Milliliter(s) PO As needed every 4 hr 09/24/20 18 2018 Inactive Vicks Vaporub 4.7 %-1.2 %-2.6 % topical ointment RxNorm: 5674469 1 Application TOP TID 09/24/20 18 2018 Inactive levmetamfetamine 50 mg nasal inhaler RxNorm: 1 Unit(s) NASAL Q3-4H 09/24/20 18 2017 Inactive sertraline 50 mg tablet RxNorm: 849715 1 Tablet(s) PO daily 09/09/20 18 2018 Inactive Please note dose trazodone 50 mg tablet RxNorm: 552707 1 Tablet(s) PO QHS 09/06/20 18 2018 Inactive sertraline 50 mg tablet RxNorm: 002996 1 Tablet(s) PO daily 09/06/20 18 2017 Inactive amoxicillin 500 mg tablet RxNorm: 250051 1 Tablet(s) PO Q12H 08/31/20 18 2017 Inactive albuterol sulfate 2.5 mg/3 mL (0.083 %) solution for nebulization RxNorm: 836014 1 Vial INH QID 08/10/20 18 2018 Inactive 60/box. Please do not fill early. Please do not auto refill. Prozac 10 mg capsule RxNorm: 662024 1 Capsule(s) PO daily 08/09/20 18 2017 Inactive buspirone 7.5 mg tablet RxNorm: 823973 1 Tablet(s) PO BID 08/09/20 18 2018 Inactive gabapentin 300 mg capsule RxNorm: 283254 1 Capsule(s) PO TID as needed 08/01/20 18 2018 Inactive hydrochlorothiazide 12.5 mg tablet RxNorm: 212773 1 Tablet(s) PO QAM 08/01/20 18 2018 Inactive ranitidine 150 mg tablet RxNorm: 016082 1 Tablet(s) PO BID 08/01/20 18 2018 Inactive Macrobid 100 mg capsule RxNorm: 599713 1 Capsule(s) PO Q12H 06/21/20 18 2017 Inactive Singulair 10 mg tablet RxNorm: 608122 1 Tablet(s) PO daily 06/14/20 18 2018 Inactive Ventolin HFA 90 mcg/actuation aerosol inhaler RxNorm: 4409924 2 Puff(s) INH QID 06/14/20 18 2018 Inactive Singulair 10 mg tablet RxNorm: 816072 1 Tablet(s) PO daily 06/14/20 18 2017 Inactive buspirone 7.5 mg tablet RxNorm: 824746 1 Tablet(s) PO BID 06/14/20 18 2017 Inactive Prozac 10 mg capsule RxNorm: 014567 1 Capsule(s) PO daily 06/14/20 18 2017 Inactive Neilmed Pediatric Sinus Rinse Refill packet RxNorm: 1 Unit Dose NASAL PRN 05/31/20 18 2021 Inactive diclofenac sodium 75 mg tablet,delayed release RxNorm: 981068 1 Tablet(s) PO BID 05/31/20 18 2017 Inactive lisinopril 2.5 mg tablet RxNorm: 641785 1 Tablet(s) PO daily 05/31/20 18 2017 Inactive metoprolol succinate ER 50 mg tablet,extended release 24 hr RxNorm: 422912 1 Tablet(s) PO daily 05/31/20 18 2017 Inactive levothyroxine 50 mcg tablet RxNorm: 377765 1 Tablet(s) PO daily 05/31/20 18 2017 Inactive TRUEplus Lancets 30 gauge RxNorm: 1 Lancets Miscellaneous QAM 05/31/20 18 2017 Inactive 100/box Ventolin HFA 90 mcg/actuation aerosol inhaler RxNorm: 630467 2 Puff(s) INH QID 05/31/20 18 2017 Inactive Aleve 220 mg capsule RxNorm: 8881047 1 Capsule(s) PO BID 05/31/20 18 2018 Inactive ranitidine 150 mg tablet RxNorm: 912357 1 Tablet(s) PO BID 05/31/20 18 2017 Inactive gabapentin 300 mg capsule RxNorm: 263940 1 Capsule(s) PO TID as needed 05/31/20 18 2017 Inactive atorvastatin 20 mg tablet RxNorm: 947526 1 Tablet(s) PO QHS 05/31/20 18 2017 Inactive True Metrix Glucose Test Strip RxNorm: 1 Test Strips Miscellaneous QAM 05/31/20 18 2017 Inactive 50/container Calcium 600-D3 Plus 600 mg calcium-800 unit-50 mg tablet RxNorm: 1 Tablet(s) PO daily take an additonal tablet for itching. 05/31/20 18 2017 Inactive hydrochlorothiazide 12.5 mg tablet RxNorm: 869161 1 Tablet(s) PO QAM 05/31/20 18 2017 Inactive Flintstones Complete (iron) 18 mg iron chewable tablet RxNorm: 1 Tablet(s) PO daily 05/31/20 18 2017 Inactive True Metrix Glucose Meter RxNorm: miscellaneous 08/17/20 19 2018 Inactive sertraline 50 mg tablet RxNorm: 514597 1 Tablet(s) PO daily 11/28/19 20 2019 Inactive loperamide 2 mg tablet RxNorm: 478997 oral 09/29/20 19 2018 Inactive d-mannose oral powder RxNorm: PO 18 2021 Inactive Symbicort 160 mcg-4.5 mcg/actuation HFA aerosol inhaler RxNorm: 3148516 2 Puff(s) INH BID 08/17/202018 Inactive Medication Administered No Medication Administered data Procedures Procedure Codes Date Tobacco Assessment/Screening CPT-4: TCA Patient Health Questionnaire CPT-4: DPHQ AHA/REBECCA Classification Assessment CPT-4: DAHA 04/25/2019 Controlled Substance Report CPT-4: CTRSU 04/03 Urinalysis, dip stick CPT-4: 88432 03/28/[address]: 038328806 CPT-4: R14 Unknown Reason For Visit No Reason For Visit data Plan of Care Planned Activity Notes Codes Status Date Referral: Pending Gynecology Referral Information Referral Processed Referral: Pending Pulmonolog y Referral Information Referral Processed Referral: Pending Psychiatry Referral Information Referral Initiated Referral: Pending Respirator y Services Referral Information Referral Initiated Referral: Pending Ophthalmol ogy Referral Information Referral Initiated Referral: [facility] [place] [facility] WPtel: [address] [place] [address] [place] Strapper Operator placed a call out to the patient to notify her that it has been recommended that she be seen by 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 Patient agreed to be seen, does not have a provider of choice and no transportation issues. Strapper Operator faxed referral and clinical notes to [facility] in [place], [place] near the patient's home. Patient to [...] seen and prefers a provider in the [place] or [place] area. Strapper Operator placed a call out to everyone listed in the area and the only location that was able to accept the patient's insurance was [place] [address] [place] [address] and spoke with Maylin. Maylin asked that the patient's referral, face sheet and visit notes be faxed to . Strapper Operator faxed over requested documents. Patient appointment confirmation letter generated and mailed to her home address. Patient to call to schedule an appointment. Processed Referral: [facility] WPtel: [address] [place], [place] [address] Patient notified that it has been advised that she be seen by Neurology. Patient agreed to be seen and prefers to be seen by a provider in the [place], [place] area. Patient denies any concerns with transportation, and prefers to schedule her own appointment. Strapper Operator [facility] and spoke with Neeraj P: who confirmed that their office is able to accept new patients and the patient's insurance. After confirming the providers fax number, underwriter faxed over the patient's referral, and [...]
--- OUTSIDE RECORDS SUMMARY | 2019-06-23 20:00 | XMS_ITS | CCD ---
Author Name Maricarmen KING, Sudha Address [address] [place] [address] Phone Organization [facility] Phone Care Team Providers Care Social Worker Psychiatric Name Role Phone Palomo KING, Anna Primary Care Provider Unav ailable Unavailable Chronic Care Management Unavaila ble Summary Purpose DataExchange Insurance Providers Payer name Policy type / Coverage type Covered democrat ID Effective Begin Date Effective End Date SUKI MAYO [id number] Unknown Unknown Family history Mother Diagnosis Age [...] Unknown Disability 05/31/[address]: 480089052 Has never s moked or chewed tobacco 05/31/[address]: 645397722 Never drinks alco hol 05/31/2018 Has the [...] Condition Codes Effective Dates Condition St atus Chronic kidney disease, unspecified ICD- 10: N18.9 ICD-9: 585.9 06/21/2019 Active Hyperlipidemia, unspecified ICD-10: E78. 5 ICD-9: 272.4 05/30/2018 Active Hypertensive heart disease w ith heart failure ICD-10: I11.0 ICD-9: 402.91 04/25/2019 Active Hypothyroidism, unspecified ICD-10: E03. 9 ICD-9: 244.9 09/05/2018 Active Mixed incontinence ICD-10: N39.46 ICD-9: 788.33 05/24/2019 Active Obstructive sleep apnea (chio lt) (pediatric) ICD-10: G47.33 ICD-9: 327.23 06/21/2019 Active Type 2 diabetes mellitus wit hout [...] cervix ICD-10: Z12.4 ICD-9: V76.2 04/25/2019 Active Other correction (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 ICD-10: Z79.899 ICD-9: [...] unspecified ICD-10: J06.9 ICD-9: 465.9 09/23/2018 Resolved senior care (current) use of non-steroidal anti-inflammatories (NSAID) ICD-10: Z79.1 ICD-9: V58.64 06/13/2018 Active Medications Medication Codes Instructions Start Date Stop Date Status Fill Instructions lisinopril 2.5 mg tablet RxNorm: 737940 1 Tablet(s) PO daily 06/21/20 19 2019 Inactive gabapentin 300 mg capsule RxNorm: 357515 1 Capsule(s) PO TID 06/21/20 19 2019 Inactive atorvastatin 20 mg tablet RxNorm: 798769 1 Tablet(s) PO QHS 06/07/20 19 2018 Inactive This refill negates all other refills of this medication TRUEplus Lancets 30 gauge RxNorm: 1 Lancets Miscellaneous QAM 05/29/20 19 2018 Inactive 100/box gabapentin 300 mg capsule RxNorm: 675421 1 Capsule(s) PO TID 05/03/20 19 2018 Inactive Flintstones Complete (iron) 18 mg iron chewable tablet RxNorm: 1 Tablet(s) PO daily 04/04/20 19 2021 Inactive This refill negates all other refills of this medication True Metrix Glucose Test Strip RxNorm: 1 Test Strips Miscellaneous QAM 02/01/20 19 2018 Inactive 100/container Alcohol Prep Pads RxNorm: 946196 1 Patch TOP QAM 02/01/20 19 2018 Inactive gabapentin 300 mg capsule RxNorm: 161628 1 Capsule(s) PO TID as needed 02/01/20 19 2018 Inactive TRUEplus Lancets 30 gauge RxNorm: 1 Lancets Miscellaneous QAM 02/01/20 19 2018 Inactive 100/box lisinopril 2.5 mg tablet RxNorm: 573861 1 Tablet(s) PO daily 12/28/19 19 2018 Inactive buspirone 7.5 mg tablet RxNorm: 637466 1 Tablet(s) PO BID 10/21/192018 Inactive This refill negates all other refills of this medication ranitidine 150 mg tablet RxNorm: 216132 1 Tablet(s) PO BID 10/21/19 19 2018 Inactive This refill negates all other refills of this medication albuterol sulfate 2.5 mg/3 mL (0.083 %) solution for nebulization RxNorm: 138684 1 Vial INH QID 10/21/19 19 2018 [...] this medication gabapentin 300 mg capsule RxNorm: 469041 1 Capsule(s) PO TID as needed 10/21/19 19 2018 Inactive atorvastatin 20 mg tablet RxNorm: 617354 1 Tablet(s) PO QHS 10/21/19 19 2018 Inactive This refill negates all other refills of this medication trazodone 50 mg tablet RxNorm: 533402 1 Tablet(s) PO QHS 10/21/19 19 2018 Inactive This refill negates all other refills of this medication Ventolin HFA 90 mcg/actuation aerosol inhaler RxNorm: 577206 2 Puff(s) INH QID 10/21/19 19 2018 [...] this medication Singulair 10 mg tablet RxNorm: 005630 1 Tablet(s) PO daily 10/21/19 19 2018 Inactive This refill negates all other refills of this medication diclofenac sodium 75 mg tablet,delayed release RxNorm: 172954 1 Tablet(s) PO BID 10/21/19 19 2018 Inactive This refill negates all other refills of this medication hydrochlorothiazide 12.5 mg tablet RxNorm: 044511 1 Tablet(s) PO QAM 10/21/19 19 2018 Inactive metoprolol succinate ER 50 mg tablet,extended release 24 hr RxNorm: 267146 1 Tablet(s) PO daily 10/21/192018 Inactive This refill negates all other refills of this medication levothyroxine 50 mcg tablet RxNorm: 094753 1 Tablet(s) PO daily 10/21/192018 Inactive This refill negates all other refills of this medication cetirizine 10 mg tablet RxNorm: 0840004 1 Tablet(s) PO daily 10/21/192018 Inactive This refill negates all other refills of this medication. Please do not auto refill Flintstones Complete (iron) 18 mg iron chewable tablet RxNorm: 1 Tablet(s) PO daily 10/21/192018 Inactive This refill negates all other refills of this medication buspirone 7.5 mg tablet RxNorm: 113502 1 Tablet(s) PO BID 10/12/19 19 2018 Inactive cetirizine 10 mg tablet RxNorm: 6006340 1 Tablet(s) PO daily 09/28/20 18 2018 Inactive Guaiasorb DM 10 mg-100 mg/5 mL oral liquid RxNorm: 539454 10 Milliliter(s) PO As needed every 4 hr 09/24/20 18 2018 Inactive Vicadenike Vaporub 4.7 %-1.2 %-2.6 % topical ointment RxNorm: 0902963 1 Application TOP TID 09/24/20 18 2018 Inactive levmetamfetamine 50 mg nasal inhaler RxNorm: 1 Unit(s) NASAL Q3-4H 09/24/20 18 2017 Inactive sertraline 50 mg tablet RxNorm: 442432 1 Tablet(s) PO daily 09/09/20 18 2018 Inactive Please note dose trazodone 50 mg tablet RxNorm: 262217 1 Tablet(s) PO QHS 09/06/20 18 2018 Inactive sertraline 50 mg tablet RxNorm: 083383 1 Tablet(s) PO daily 09/06/20 18 2017 Inactive amoxicillin 500 mg tablet RxNorm: 440217 1 Tablet(s) PO Q12H 08/31/20 18 2017 Inactive albuterol sulfate 2.5 mg/3 mL (0.083 %) solution for nebulization RxNorm: 704805 1 Vial INH QID 08/10/20 18 2018 Inactive 60/box. Please do not fill early. Please do not auto refill. Prozac 10 mg capsule RxNorm: 580572 1 Capsule(s) PO daily 08/09/20 18 2017 Inactive buspirone 7.5 mg tablet RxNorm: 390698 1 Tablet(s) PO BID 08/09/20 18 2018 Inactive gabapentin 300 mg capsule RxNorm: 327036 1 Capsule(s) PO TID as needed 08/01/20 18 2018 Inactive hydrochlorothiazide 12.5 mg tablet RxNorm: 776830 1 Tablet(s) PO QAM 08/01/20 18 2018 Inactive ranitidine 150 mg tablet RxNorm: 966023 1 Tablet(s) PO BID 08/01/20 18 2018 Inactive Macrobid 100 mg capsule RxNorm: 368646 1 Capsule(s) PO Q12H 06/21/20 18 2017 Inactive Singulair 10 mg tablet RxNorm: 919123 1 Tablet(s) PO daily 06/14/20 18 2018 Inactive Ventolin HFA 90 mcg/actuation aerosol inhaler RxNorm: 5444471 2 Puff(s) INH QID 06/14/20 18 2018 Inactive Singulair 10 mg tablet RxNorm: 236815 1 Tablet(s) PO daily 06/14/20 18 2017 Inactive buspirone 7.5 mg tablet RxNorm: 221625 1 Tablet(s) PO BID 06/14/20 18 2017 Inactive Prozac 10 mg capsule RxNorm: 164525 1 Capsule(s) PO daily 06/14/20 18 2017 Inactive Neilmed Pediatric Sinus Rinse Refill packet RxNorm: 1 Unit Dose NASAL PRN 05/31/20 18 2021 Inactive diclofenac sodium 75 mg tablet,delayed release RxNorm: 099490 1 Tablet(s) PO BID 05/31/20 18 2017 Inactive lisinopril 2.5 mg tablet RxNorm: 979533 1 Tablet(s) PO daily 05/31/20 18 2017 Inactive metoprolol succinate ER 50 mg tablet,extended release 24 hr RxNorm: 617002 1 Tablet(s) PO daily 05/31/20 18 2017 Inactive levothyroxine 50 mcg tablet RxNorm: 606241 1 Tablet(s) PO daily 05/31/20 18 2017 Inactive TRUEplus Lancets 30 gauge RxNorm: 1 Lancets Miscellaneous QAM 05/31/20 18 2017 Inactive 100/box Ventolin HFA 90 mcg/actuation aerosol inhaler RxNorm: 084667 2 Puff(s) INH QID 05/31/20 18 2017 Inactive Aleve 220 mg capsule RxNorm: 1939825 1 Capsule(s) PO BID 05/31/20 18 2018 Inactive ranitidine 150 mg tablet RxNorm: 379292 1 Tablet(s) PO BID 05/31/20 18 2017 Inactive gabapentin 300 mg capsule RxNorm: 044933 1 Capsule(s) PO TID as needed 05/31/20 18 2017 Inactive atorvastatin 20 mg tablet RxNorm: 243407 1 Tablet(s) PO QHS 05/31/20 18 2017 Inactive True Metrix Glucose Test Strip RxNorm: 1 Test Strips Miscellaneous [facility] 05/31/20 18 2017 Inactive 50/container Calcium 600-D3 Plus 600 mg calcium-800 unit-50 mg tablet RxNorm: 1 Tablet(s) PO daily take an additonal tablet for itching. 05/31/20 18 2017 Inactive hydrochlorothiazide 12.5 mg tablet RxNorm: 440352 1 Tablet(s) PO QAM 05/31/20 18 2017 Inactive Flintstones Complete (iron) 18 mg iron chewable tablet RxNorm: 1 Tablet(s) PO daily 05/31/20 18 2017 Inactive True Metrix Glucose Meter RxNorm: miscellaneous 08/17/20 19 2018 Inactive sertraline 50 mg tablet RxNorm: 722511 1 Tablet(s) PO daily 11/28/19 20 2019 Inactive loperamide 2 mg tablet RxNorm: 497621 oral 09/29/20 19 2018 Inactive d-mannose oral powder RxNorm: PO 18 2021 Inactive Symbicort 160 mcg-4.5 mcg/actuation HFA aerosol inhaler RxNorm: 7259091 2 Puff(s) INH BID 08/17/20 19 2018 Inactive Medication Administered No Medication Administered data Results Observation Observation Code Item Item Code Result Date Service Location [facility] 02597 Triglycerides 2571-8 171 mg/dL 019 [facility] [address] [place] [address] [facility] 59551 VLDL 95654-5 34 mg/dL 019 [facility] [address] [place] [address] HDL - CHOL 80862 HDL 2085-9 37 mg/dL 019 [facility] [address] [place] [address] HDL - CHOL 09173 CHD 45382-8 19 % 019 [facility] [address] [place] [address] Homocysteine 92030 Homocysteine 92549-0 8.42 umol/L [facility] [address] [place] [address] TSH 29926 TSH 87108-6 2.210 uIU/mL [facility] [address] [place] [address] CHOLESTEROL 92294 Cholesterol 2093-3 200 mg/dL [facility] [address] [place] [address] MICROALBUMIN (URINE) 38568 Microalbumin 29992-6 0.5 mg/dL [facility] [address] [place] [address] MICROALBUMIN (URINE) 53159 Microalbumin/Cre atinine Ratio 99956-3 7 MCG/MGCREAT [facility] [address] [place] [address] MICROALBUMIN (URINE) 46290 Urine Creatinine 2161-8 71.30 mg/dL [facility] [address] [place] [address] 54368 VITAMIN B-12 89543 Vitamin B12 2132-9 445 pg/mL 06/[address] [place] [address] [place] [address] 24301 Direct LDL 70853 LDL-Direct 31104-1 130 mg/dL [facility] [address] [place] [address] 79823 Reflex Molecular UTI Test RMUTI Molecular UTI Test CRITERIA NOT MET FOR MOLECULAR UTI TESTING [facility] [address] [place] [address] 62724 Reflex UA to Molecular UTI Test 03984F Glucose 2345-7 Negative mg/dL [facility] [address] [place] [address] 98373 Reflex UA to Molecular UTI Test 14951W Protein Negative mg/dL [facility] [address] [place] [address] 50061 Reflex UA to Molecular UTI Test 47195V Bilirubin Negative mg/dL [facility] [address] [place] [address] 21170 Reflex UA to Molecular UTI Test 32887O Urobilinogen Negative mg/dL [facility] [address] [place] [address] 77673 Reflex UA to Molecular UTI Test 34696N Ph 6.[address] [place] [address] [place] [address] 83573 Reflex UA to Molecular UTI Test 20328C Blood Negative mg/dL [address] [place] [address] Laboratory [address] [place] [address] Reflex UA to Molecular UTI Test 94358V Ketones Negative mg/dL [address] [place] [address] [address] [place] [address] Reflex UA to Molecular UTI Test 22225T Nitrite Negative [address] [place] [address] Laboratory [address] [place] [address] Reflex UA to Molecular UTI Test 73782E Leukocytes 500 WBCs/uL +++ WBCs/uL [address] [place] [address] Laboratory [address] [place] [address] Reflex UA to Molecular UTI Test 36830E Clarity Slightly-Marianne udy [address] [place] [address] [place] [address] 30948 Reflex UA to Molecular UTI Test 80011D Specific [place] [address] [place] [address] [place] [address] 08395 Reflex UA to Molecular UTI Test 13756C Color Yellow [address] [place] [address] [place] [address] 84953 Reflex UA to Molecular UTI Test 32487A Ascorbic Acid Negative mg/dL [address] [place] [address] [place] [address] 77736 Reflex UA to Molecular UTI Test 36167R Red Blood Cell 1 /HPF #/HPF [address] [place] [address] [place] [address] 74051 Reflex UA to Molecular UTI Test 82328F White Blood Cell 4 /HPF #/HPF [address] [place] [address] [place] [address] 82081 Reflex UA to Molecular UTI Test 26351U SQUAMOUS EPITHELIAL 1 /HPF #/HPF [address] [place] [address] [place] [address] 75606 Reflex UA to Molecular UTI Test 95369W Bacteria Trace graded/HPF [address] [place] [address] [place] [address]6449 Reflex UA to Molecular UTI Test 30328Q Mucous RARE grades/LPF 019 [facility] [address] [place] [address] Procedures Procedure Codes Date Urinalysis, dip stick CPT-4: 48191 06/21/2019 Urinalysis, dip stick Leukocytes:/Moderate, Nitrite:/Negative, Urobilinogen:/Normal, Protein:/Negative, Ph:/5.0, Blood:/Negative, Specific [place]:/1.015, Ketone:/Negative, Bilirubin:/Negative, Glucose:/Negative CPT-4: 97871Oaagqon 06/21/2019 Tobacco Assessment/Screening CPT-4: TCA Patient Health Questionnaire CPT-4: DPHQ AHA/REBECCA Classification Assessment CPT-4: DAHA 04/25/2019 Controlled Substance Report CPT-4: CTRSU 04/03 Urinalysis, dip stick CPT-4: 31503 03/28/2019 Urinalysis, dip stick CPT-4: 93689 03/28/[address]: 535575895 CPT-4: R14 Unknown Vital Signs Date Vital 06/21/2019 Blood Pressure 1: 136/78 Code: 8480-6 BMI: 56.8 Code: 80412-2 Heart Rate 1: 78 bpm Height: 4'11 Code: 8302-2 Random Blood Sugar: 118/NaN Reported Pain Level (Scale 0-10): Respiratory Rate: 18 bpm SpO2: 99% Temperature: 36.7 (C) / 98.1 (F) Weight: 281 lbs Code: 43957-0 Reason For Visit Reason For Visit Effective Dates Notes urinary incontinence 06/21/2019 hypertension 06/21/2019 hyperlipidemia disease 06/21/2019 Encounters Encounter Performer Location Location Address Codes Magdi e HOME VISIT EST PATIENT Diagnosis: Hyperlipidemia, unspecified[ICD10: E78.5] Diagnosis: Hypothyroidism, unspecified[ICD10: E03.9] Diagnosis: Mixed incontinence[ICD10: N39.46] Diagnosis: Type 2 diabetes mellitus without complications[ICD10 : E11.9] Diagnosis: Chronic kidney disease, unspecified[ICD10: N18.9] Diagnosis: Obstructive sleep apnea (adult) (pediatric)[ICD10: G47.33] Diagnosis: Hypertensive heart disease with heart failure[ICD10: I11.0] [facility] Office [address] [place] [address] CPT-4: 60612 06/21/2019 Plan of Care Planned Activity Notes Codes Status Date Patient Education: Patient Medication Summary Completed 06/21/2019 Care Plan: URINALYSIS AUTO W/SCOPE LOINC : 97496-0 Pending 06/21/2019 Appointment: Charlene Oropeza WPtel: [address] [facility] [id number] 05/24/2019 Appointment: Mallory Delgado E452 04/27/2019 Appointment: Charlene Oropeza WPtel: [address] [facility] [id number] [facility] 04/25/2019 Appointment: Rasta Palafox WPtel: [address] [facility] [id number] [facility] 03/28/2019 Appointment: Rasta Palafox WPtel: [address] [facility] [id number] E452 02/14/2019 Appointment: Rasta Palafox WPtel: [address] [place] [address] [id number] E452 01/31/2019 Appointment: Rasta Palafox WPtel: [address] [place] [address] [id number] 12/27/2018 Referral: Pending Gynecology Referral Information Referral Processed Referral: Pending Pulmonology Referral Information Referral Processed Referral: Pending Psychiatry Referral Information Referral Initiated Referral: Pending Respiratory Services Referral Information Referral Initiated Referral: Pending Ophthalmology Referral Information Referral Initiated Referral: [facility] WPtel: [address] Air Conditioning Installer Supervisor placed a call out to the patient to notify her that it has been recommended that she be seen by 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 Patient agreed to be seen, does not have a provider of choice and no transportation issues. Air Conditioning Installer Supervisor faxed referral and clinical notes to [facility] in [place], [place] near the patient's home. Patient to [...] seen and prefers a provider in the [place] or [place] area. Air Conditioning Installer Supervisor placed a call out to everyone listed in the area and the only location that was able to accept the patient's insurance was [facility] [place] [address] and spoke with Maylin. Maylin asked that the patient's referral, face sheet and visit notes be faxed to . Air Conditioning Installer Supervisor faxed over requested documents. Patient appointment confirmation letter generated and mailed to her home address. Patient to call to schedule an appointment. Processed Referral: [facility] WPtel: [address] [place] [address] Patient notified that it has been advised that she be seen by Neurology. Patient agreed to be seen and prefers to be seen by a provider in the [place], [place] area. Patient denies any concerns with transportation, and prefers to schedule her own appointment. Air Conditioning Installer Supervisor placed a call out to [facility] and spoke with Neeraj Mcfarland: who confirmed that their office is able to accept new patients and the patient's insurance. After confirming the providers fax number, technical writer faxed over the patient's referral, [...]
--- OUTSIDE RECORDS SUMMARY | 2019-06-25 20:00 | XMS_ITS | CCD ---
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 Roofing Foreman Name Role Phone Palomo KING, Anna Primary Care Provider Unav ailable Unavailable Chronic Care Management Unavaila ble Summary Purpose [employer] Insurance Providers Payer name Policy type / Coverage type Covered democrat ID Effective Begin Date Effective End Date [employer]KI [employer] MARIA ESTHER [id number] Unknown Unknown Family history Mother Diagnosis Age [...] Unknown Disability 05/31/[address]: 158233193 Has never s moked or chewed tobacco 05/31/[address]: 969765489 Never drinks alco hol 05/31/2018 Has the [...] ICD-10: Z12.4 ICD-9: V76.2 04/25/2019 Active Other snf (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 ICD-10: Z79.899 ICD-9: [...] unspecified ICD-10: J06.9 ICD-9: 465.9 09/23/2018 Resolved [facility] (current) use of non-steroidal anti-inflammatories (NSAID) ICD-10: Z79.1 ICD-9: V58.64 06/13/2018 Active Medications Medication Codes Instructions Start Date Stop Date Status Fill Instructions hydrochlorothiazide 12.5 mg tablet RxNorm: 681643 1 Tablet(s) PO QAM 06/26/20 19 2019 Inactive levmetamfetamine 50 mg nasal inhaler RxNorm: 1 Unit(s) NASAL Q3-4H Do not use more than every 3 hours or 8 times/24hours 06/26/20 19 2021 Inactive Please do not auto refill. This refill negates all other refills of this medication Ventolin HFA 90 mcg/actuation aerosol inhaler RxNorm: 914115 2 Puff(s) INH QID 06/26/202018 Inactive Please do not fill early. Please do not auto refill. This refill negates all other refills of this medication Singulair 10 mg tablet RxNorm: 854094 1 Tablet(s) PO daily 06/26/202019 Inactive This refill negates all other refills of this medication cetirizine 10 mg tablet RxNorm: 5330993 1 Tablet(s) PO daily 06/26/20 19 2019 Inactive This refill negates all other refills of this medication. Please do not auto refill levothyroxine 50 mcg tablet RxNorm: 243575 1 Tablet(s) PO daily 06/26/2010/19/ 2020 Inactive This refill negates all other refills of this medication diclofenac sodium 75 mg tablet,delayed release RxNorm: 308685 1 Tablet(s) PO BID 06/26/20 19 2019 Inactive This refill negates all other refills of this medication ranitidine 150 mg tablet RxNorm: 901047 1 Tablet(s) PO BID 06/26/20 19 2018 Inactive This refill negates all other refills of this medication buspirone 7.5 mg tablet RxNorm: 524887 1 Tablet(s) PO BID 06/26/20 19 2020 Inactive This refill negates all other refills of this medication Calcium 600-D3 Plus (mag-zinc) 600 mg calcium-800 unit-50 mg tablet RxNorm: 1 Tablet(s) PO daily take an additonal tablet for itching. 06/26/20 19 2018 Inactive This refill negates all other refills of this medication albuterol sulfate 2.5 mg/3 mL (0.083 %) solution for nebulization RxNorm: 362159 1 Vial INH QID 06/26/20 19 2018 Inactive 60/box. This refill negates all other refills of this medication. Please do not fill early. Please do not auto refill. lisinopril 2.5 mg tablet RxNorm: 557643 1 Tablet(s) PO daily 06/21/20 19 2019 Inactive gabapentin 300 mg capsule RxNorm: 802727 1 Capsule(s) PO TID 06/21/20 19 2019 Inactive atorvastatin 20 mg tablet RxNorm: 309699 1 Tablet(s) PO QHS 06/07/20 19 2018 Inactive This refill negates all other refills of this medication TRUEplus Lancets 30 gauge RxNorm: 1 Lancets Miscellaneous QAM 05/29/20 19 2018 Inactive 100/box gabapentin 300 mg capsule RxNorm: 853565 1 Capsule(s) PO TID 05/03/20 19 2018 Inactive Flintstones Complete (iron) 18 mg iron chewable tablet RxNorm: 1 Tablet(s) PO daily 04/04/202021 Inactive This refill negates all other refills of this medication True Metrix Glucose Test Strip RxNorm: 1 Test Strips Miscellaneous QAM 02/01/20 19 2018 Inactive 100/container Alcohol Prep Pads RxNorm: 701235 1 Patch TOP QAM 02/01/20 19 2018 Inactive gabapentin 300 mg capsule RxNorm: 414217 1 Capsule(s) PO TID as needed 02/01/202018 Inactive TRUEplus Lancets 30 gauge RxNorm: 1 Lancets Miscellaneous QAM 02/01/20 19 2018 Inactive 100/box lisinopril 2.5 mg tablet RxNorm: 458550 1 Tablet(s) PO daily 12/28/192018 Inactive ranitidine 150 mg tablet RxNorm: 053421 1 Tablet(s) PO BID 10/21/192018 Inactive This refill negates all other refills of this medication albuterol sulfate 2.5 mg/3 mL (0.083 %) solution for nebulization RxNorm: 257499 1 Vial INH QID 10/21/19 19 2018 [...] this medication gabapentin 300 mg capsule RxNorm: 264951 1 Capsule(s) PO TID as needed 10/21/19 19 2018 Inactive atorvastatin 20 mg tablet RxNorm: 465071 1 Tablet(s) PO QHS 10/21/192018 Inactive This refill negates all other refills of this medication trazodone 50 mg tablet RxNorm: 863486 1 Tablet(s) PO QHS 10/21/19 19 2018 Inactive This refill negates all other refills of this medication Ventolin HFA 90 mcg/actuation aerosol inhaler RxNorm: 057052 2 Puff(s) INH QID 10/21/19 19 2018 Inactive Please do not fill early. Please do not auto refill. This refill negates all other refills of this medication Calcium 600-D3 Plus 600 mg calcium-800 unit-50 mg tablet RxNorm: 1 Tablet(s) PO daily take an additonal tablet for itching. 10/21/192018 Inactive This refill negates all other refills of this medication Singulair 10 mg tablet RxNorm: 005211 1 Tablet(s) PO daily 10/21/192018 Inactive This refill negates all other refills of this medication buspirone 7.5 mg tablet RxNorm: 180603 1 Tablet(s) PO BID 10/21/19 19 2018 Inactive This refill negates all other refills of this medication diclofenac sodium 75 mg tablet,delayed release RxNorm: 211186 1 Tablet(s) PO BID 10/21/19 19 2018 Inactive This refill negates all other refills of this medication hydrochlorothiazide 12.5 mg tablet RxNorm: 030596 1 Tablet(s) PO QAM 10/21/192018 Inactive metoprolol succinate ER 50 mg tablet,extended release 24 hr RxNorm: 948914 1 Tablet(s) PO daily 10/21/192018 Inactive This refill negates all other refills of this medication levothyroxine 50 mcg tablet RxNorm: 228858 1 Tablet(s) PO daily 10/21/192018 Inactive This refill negates all other refills of this medication cetirizine 10 mg tablet RxNorm: 8460098 1 Tablet(s) PO daily 10/21/192018 Inactive This refill negates all other refills of this medication. Please do not auto refill Flintstones Complete (iron) 18 mg iron chewable tablet RxNorm: 1 Tablet(s) PO daily 10/21/192018 Inactive This refill negates all other refills of this medication buspirone 7.5 mg tablet RxNorm: 247176 1 Tablet(s) PO BID 10/12/19 19 2018 Inactive cetirizine 10 mg tablet RxNorm: 7311141 1 Tablet(s) PO daily 09/28/20 18 2018 Inactive Guaiasorb DM 10 mg-100 mg/5 mL oral liquid RxNorm: 767925 10 Milliliter(s) PO As needed every 4 hr 09/24/20 18 2018 Inactive Vicks Vaporub 4.7 %-1.2 %-2.6 % topical ointment RxNorm: 3118542 1 Application TOP TID 09/24/20 18 2018 Inactive levmetamfetamine 50 mg nasal inhaler RxNorm: 1 Unit(s) NASAL Q3-4H 09/24/20 18 2017 Inactive sertraline 50 mg tablet RxNorm: 251521 1 Tablet(s) PO daily 09/09/20 18 2018 Inactive Please note dose trazodone 50 mg tablet RxNorm: 520388 1 Tablet(s) PO QHS 09/06/20 18 2018 Inactive sertraline 50 mg tablet RxNorm: 385039 1 Tablet(s) PO daily 09/06/20 18 2017 Inactive amoxicillin 500 mg tablet RxNorm: 934452 1 Tablet(s) PO Q12H 08/31/20 18 2017 Inactive albuterol sulfate 2.5 mg/3 mL (0.083 %) solution for nebulization RxNorm: 587387 1 Vial INH QID 08/10/20 18 2018 Inactive 60/box. Please do not fill early. Please do not auto refill. Prozac 10 mg capsule RxNorm: 558360 1 Capsule(s) PO daily 08/09/20 18 2017 Inactive buspirone 7.5 mg tablet RxNorm: 116222 1 Tablet(s) PO BID 08/09/20 18 2018 Inactive gabapentin 300 mg capsule RxNorm: 421242 1 Capsule(s) PO TID as needed 08/01/20 18 2018 Inactive hydrochlorothiazide 12.5 mg tablet RxNorm: 682182 1 Tablet(s) PO QAM 08/01/20 18 2018 Inactive ranitidine 150 mg tablet RxNorm: 588634 1 Tablet(s) PO BID 08/01/20 18 2018 Inactive Macrobid 100 mg capsule RxNorm: 247161 1 Capsule(s) PO Q12H 06/21/20 18 2017 Inactive Singulair 10 mg tablet RxNorm: 011819 1 Tablet(s) PO daily 06/14/20 18 2018 Inactive Ventolin HFA 90 mcg/actuation aerosol inhaler RxNorm: 0468209 2 Puff(s) INH QID 06/14/20 18 2018 Inactive Singulair 10 mg tablet RxNorm: 030816 1 Tablet(s) PO daily 06/14/20 18 2017 Inactive buspirone 7.5 mg tablet RxNorm: 621140 1 Tablet(s) PO BID 06/14/20 18 2017 Inactive Prozac 10 mg capsule RxNorm: 276471 1 Capsule(s) PO daily 06/14/20 18 2017 Inactive Neilmed Pediatric Sinus Rinse Refill packet RxNorm: 1 Unit Dose NASAL PRN 05/31/20 18 2021 Inactive diclofenac sodium 75 mg tablet,delayed release RxNorm: 808087 1 Tablet(s) PO BID 05/31/20 18 2017 Inactive lisinopril 2.5 mg tablet RxNorm: 402103 1 Tablet(s) PO daily 05/31/20 18 2017 Inactive metoprolol succinate ER 50 mg tablet,extended release 24 hr RxNorm: 748858 1 Tablet(s) PO daily 05/31/20 18 2017 Inactive levothyroxine 50 mcg tablet RxNorm: 044811 1 Tablet(s) PO daily 05/31/20 18 2017 Inactive TRUEplus Lancets 30 gauge RxNorm: 1 Lancets Miscellaneous QAM 05/31/20 18 2017 Inactive 100/box Ventolin HFA 90 mcg/actuation aerosol inhaler RxNorm: 167601 2 Puff(s) INH QID 05/31/20 18 2017 Inactive Aleve 220 mg capsule RxNorm: 3323367 1 Capsule(s) PO BID 05/31/20 18 2018 Inactive ranitidine 150 mg tablet RxNorm: 668364 1 Tablet(s) PO BID 05/31/20 18 2017 Inactive gabapentin 300 mg capsule RxNorm: 703656 1 Capsule(s) PO TID as needed 05/31/20 18 2017 Inactive atorvastatin 20 mg tablet RxNorm: 449922 1 Tablet(s) PO QHS 05/31/20 18 2017 Inactive True Metrix Glucose Test Strip RxNorm: [facility] 05/31/20 18 2017 Inactive 50/container Calcium 600-D3 Plus 600 mg calcium-800 unit-50 mg tablet RxNorm: 1 Tablet(s) PO daily take an additonal tablet for itching. 05/31/20 18 2017 Inactive hydrochlorothiazide 12.5 mg tablet RxNorm: 859779 1 Tablet(s) PO QAM 05/31/20 18 2017 Inactive Flintstones Complete (iron) 18 mg iron chewable tablet RxNorm: 1 Tablet(s) PO daily 05/31/20 18 2017 Inactive True Metrix Glucose Meter RxNorm: miscellaneous 08/17/20 19 2018 Inactive sertraline 50 mg tablet RxNorm: 990901 1 Tablet(s) PO daily 11/28/19 20 2019 Inactive loperamide 2 mg tablet RxNorm: 991869 oral 09/29/20 19 2018 Inactive d-mannose oral powder RxNorm: PO 18 2021 Inactive Symbicort 160 mcg-4.5 mcg/actuation HFA aerosol inhaler RxNorm: 4876235 2 Puff(s) INH BID 08/17/20 19 2018 Inactive Medication Administered No Medication Administered data Procedures Procedure Codes Date Urinalysis, dip stick CPT-4: 36679 06/21/2019 Tobacco Assessment/Screening CPT-4: TCA Patient Health Questionnaire CPT-4: DPHQ AHA/REBECCA Classification Assessment CPT-4: DAHA 04/25/2019 Controlled Substance Report CPT-4: CTRSU 04/03 Urinalysis, dip stick CPT-4: 16247 03/28/2019 Urinalysis, dip stick CPT-4: 92630 03/28/[address]: 027416422 CPT-4: R14 Unknown Reason For Visit No Reason For Visit data Plan of Care Planned Activity Notes Codes Status Date Referral: Pending Gynecology Referral Information Referral Processed Referral: Pending Pulmonolog y Referral Information Referral Processed Referral: Pending Psychiatry Referral Information Referral Initiated Referral: Pending Respirator y Services Referral Information Referral Initiated Referral: Pending Ophthalmol ogy Referral Information Referral Initiated Referral: [facility] WPtel: [address] [facility] [address] Wig Stylist placed a call out to the patient to notify her that it has been recommended that she be seen by 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 Patient agreed to be seen, does not have a provider of choice and no transportation issues. Wig Stylist faxed referral and clinical notes to [facility] in [place], [place] near the patient's home. Patient to [...] seen and prefers a provider in the [place] or [facility]. Wig Stylist placed a call out to everyone listed in the area and the only location that was able to accept the patient's insurance was [facility] [place] [address] and spoke with Maylin. Maylin asked that the patient's referral, face sheet and visit notes be faxed to . Wig Stylist faxed over requested documents. Patient appointment confirmation letter generated and mailed to her home address. Patient to call to schedule an appointment. Processed Referral: [facility] WPtel: [address] [place] [address] [place] [address] Patient notified that it has been advised that she be seen by Neurology. Patient agreed to be seen and prefers to be seen by a provider in the [place], [place] area. Patient denies any concerns with transportation, and prefers to schedule her own appointment. Wig Stylist placed a call out to [facility] and spoke with Neeraj P: who confirmed that their office is able to accept new patients and the patient's insurance. After confirming the providers fax number, commercial loan underwriter faxed over the patient's referral, [...]
--- OUTSIDE RECORDS SUMMARY | 2019-06-25 20:00 | XMS_ITS | CCD ---
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 Report Analyst Name Role Phone Palomo KING, Anna Primary Care Provider Unav ailable Unavailable Chronic Care Management Unavaila ble Summary Purpose DataExchange Insurance Providers Payer name Policy type / Coverage type Covered republican ID Effective Begin Date Effective End Date SUKI [employer]TS MARIA ESTHER [id number] Unknown Unknown Family history Mother Diagnosis Age [...] Unknown Disability 05/31/[address]: 190768217 Has never s moked or chewed tobacco 05/31/[address]: 421050912 Never drinks alco hol 05/31/2018 Has the [...] ICD-10: Z12.4 ICD-9: V76.2 04/25/2019 Active Other residential (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 ICD-10: Z79.899 ICD-9: [...] unspecified ICD-10: J06.9 ICD-9: 465.9 09/23/2018 Resolved [facility] (current) use of non-steroidal anti-inflammatories (NSAID) ICD-10: Z79.1 ICD-9: V58.64 06/13/2018 Active Medications Medication Codes Instructions Start Date Stop Date Status Fill Instructions hydrochlorothiazide 12.5 mg tablet RxNorm: 118470 1 Tablet(s) PO QAM 06/26/20 19 2019 Inactive levmetamfetamine 50 mg nasal inhaler RxNorm: 1 Unit(s) NASAL Q3-4H Do not use more than every 3 hours or 8 times/24hours 06/26/20 19 2021 Inactive Please do not auto refill. This refill negates all other refills of this medication Ventolin HFA 90 mcg/actuation aerosol inhaler RxNorm: 326218 2 Puff(s) INH QID 06/26/202018 Inactive Please do not fill early. Please do not auto refill. This refill negates all other refills of this medication Singulair 10 mg tablet RxNorm: 931906 1 Tablet(s) PO daily 06/26/202019 Inactive This refill negates all other refills of this medication cetirizine 10 mg tablet RxNorm: 1410898 1 Tablet(s) PO daily 06/26/20 19 2019 Inactive This refill negates all other refills of this medication. Please do not auto refill levothyroxine 50 mcg tablet RxNorm: 389218 1 Tablet(s) PO daily 06/26/2010/19/ 2020 Inactive This refill negates all other refills of this medication diclofenac sodium 75 mg tablet,delayed release RxNorm: 259559 1 Tablet(s) PO BID 06/26/20 19 2019 Inactive This refill negates all other refills of this medication ranitidine 150 mg tablet RxNorm: 052325 1 Tablet(s) PO BID 06/26/20 19 2018 Inactive This refill negates all other refills of this medication buspirone 7.5 mg tablet RxNorm: 250112 1 Tablet(s) PO BID 06/26/20 19 2020 Inactive This refill negates all other refills of this medication Calcium 600-D3 Plus (mag-zinc) 600 mg calcium-800 unit-50 mg tablet RxNorm: 1 Tablet(s) PO daily take an additonal tablet for itching. 06/26/20 19 2018 Inactive This refill negates all other refills of this medication albuterol sulfate 2.5 mg/3 mL (0.083 %) solution for nebulization RxNorm: 902940 1 Vial INH QID 06/26/20 19 2018 Inactive 60/box. This refill negates all other refills of this medication. Please do not fill early. Please do not auto refill. lisinopril 2.5 mg tablet RxNorm: 716578 1 Tablet(s) PO daily 06/21/20 19 2019 Inactive gabapentin 300 mg capsule RxNorm: 588135 1 Capsule(s) PO TID 06/21/20 19 2019 Inactive atorvastatin 20 mg tablet RxNorm: 083260 1 Tablet(s) PO QHS 06/07/20 19 2018 Inactive This refill negates all other refills of this medication TRUEplus Lancets 30 gauge RxNorm: 1 Lancets Miscellaneous QAM 05/29/20 19 2018 Inactive 100/box gabapentin 300 mg capsule RxNorm: 973506 1 Capsule(s) PO TID 05/03/20 19 2018 Inactive Flintstones Complete (iron) 18 mg iron chewable tablet RxNorm: 1 Tablet(s) PO daily 04/04/202021 Inactive This refill negates all other refills of this medication True Metrix Glucose Test Strip RxNorm: 1 Test Strips Miscellaneous QAM 02/01/20 19 2018 Inactive 100/container Alcohol Prep Pads RxNorm: 448799 1 Patch TOP QAM 02/01/20 19 2018 Inactive gabapentin 300 mg capsule RxNorm: 095360 1 Capsule(s) PO TID as needed 02/01/202018 Inactive TRUEplus Lancets 30 gauge RxNorm: 1 Lancets Miscellaneous QAM 02/01/20 19 2018 Inactive 100/box lisinopril 2.5 mg tablet RxNorm: 170863 1 Tablet(s) PO daily 12/28/192018 Inactive ranitidine 150 mg tablet RxNorm: 731696 1 Tablet(s) PO BID 10/21/192018 Inactive This refill negates all other refills of this medication albuterol sulfate 2.5 mg/3 mL (0.083 %) solution for nebulization RxNorm: 332492 1 Vial INH QID 10/21/19 19 2018 [...] this medication gabapentin 300 mg capsule RxNorm: 575868 1 Capsule(s) PO TID as needed 10/21/19 19 2018 Inactive atorvastatin 20 mg tablet RxNorm: 797933 1 Tablet(s) PO QHS 10/21/192018 Inactive This refill negates all other refills of this medication trazodone 50 mg tablet RxNorm: 822331 1 Tablet(s) PO QHS 10/21/19 19 2018 Inactive This refill negates all other refills of this medication Ventolin HFA 90 mcg/actuation aerosol inhaler RxNorm: 896939 2 Puff(s) INH QID 10/21/19 19 2018 Inactive Please do not fill early. Please do not auto refill. This refill negates all other refills of this medication Calcium 600-D3 Plus 600 mg calcium-800 unit-50 mg tablet RxNorm: 1 Tablet(s) PO daily take an additonal tablet for itching. 10/21/192018 Inactive This refill negates all other refills of this medication Singulair 10 mg tablet RxNorm: 155514 1 Tablet(s) PO daily 10/21/192018 Inactive This refill negates all other refills of this medication buspirone 7.5 mg tablet RxNorm: 458862 1 Tablet(s) PO BID 10/21/19 19 2018 Inactive This refill negates all other refills of this medication diclofenac sodium 75 mg tablet,delayed release RxNorm: 890931 1 Tablet(s) PO BID 10/21/19 19 2018 Inactive This refill negates all other refills of this medication hydrochlorothiazide 12.5 mg tablet RxNorm: 755725 1 Tablet(s) PO QAM 10/21/192018 Inactive metoprolol succinate ER 50 mg tablet,extended release 24 hr RxNorm: 743389 1 Tablet(s) PO daily 10/21/192018 Inactive This refill negates all other refills of this medication levothyroxine 50 mcg tablet RxNorm: 173145 1 Tablet(s) PO daily 10/21/192018 Inactive This refill negates all other refills of this medication cetirizine 10 mg tablet RxNorm: 9278331 1 Tablet(s) PO daily 10/21/192018 Inactive This refill negates all other refills of this medication. Please do not auto refill Flintstones Complete (iron) 18 mg iron chewable tablet RxNorm: 1 Tablet(s) PO daily 10/21/192018 Inactive This refill negates all other refills of this medication buspirone 7.5 mg tablet RxNorm: 888779 1 Tablet(s) PO BID 10/12/19 19 2018 Inactive cetirizine 10 mg tablet RxNorm: 1751184 1 Tablet(s) PO daily 09/28/20 18 2018 Inactive Guaiasorb DM 10 mg-100 mg/5 mL oral liquid RxNorm: 556159 10 Milliliter(s) PO As needed every 4 hr 09/24/20 18 2018 Inactive Vicks Vaporub 4.7 %-1.2 %-2.6 % topical ointment RxNorm: 9980838 1 Application TOP TID 09/24/20 18 2018 Inactive levmetamfetamine 50 mg nasal inhaler RxNorm: 1 Unit(s) NASAL Q3-4H 09/24/20 18 2017 Inactive sertraline 50 mg tablet RxNorm: 718615 1 Tablet(s) PO daily 09/09/20 18 2018 Inactive Please note dose trazodone 50 mg tablet RxNorm: 113704 1 Tablet(s) PO QHS 09/06/20 18 2018 Inactive sertraline 50 mg tablet RxNorm: 786359 1 Tablet(s) PO daily 09/06/20 18 2017 Inactive amoxicillin 500 mg tablet RxNorm: 558525 1 Tablet(s) PO Q12H 08/31/20 18 2017 Inactive albuterol sulfate 2.5 mg/3 mL (0.083 %) solution for nebulization RxNorm: 702056 1 Vial INH QID 08/10/20 18 2018 Inactive 60/box. Please do not fill early. Please do not auto refill. Prozac 10 mg capsule RxNorm: 069552 1 Capsule(s) PO daily 08/09/20 18 2017 Inactive buspirone 7.5 mg tablet RxNorm: 965613 1 Tablet(s) PO BID 08/09/20 18 2018 Inactive gabapentin 300 mg capsule RxNorm: 949743 1 Capsule(s) PO TID as needed 08/01/20 18 2018 Inactive hydrochlorothiazide 12.5 mg tablet RxNorm: 941825 1 Tablet(s) PO QAM 08/01/20 18 2018 Inactive ranitidine 150 mg tablet RxNorm: 688584 1 Tablet(s) PO BID 08/01/20 18 2018 Inactive Macrobid 100 mg capsule RxNorm: 883916 1 Capsule(s) PO Q12H 06/21/20 18 2017 Inactive Singulair 10 mg tablet RxNorm: 716975 1 Tablet(s) PO daily 06/14/20 18 2018 Inactive Ventolin HFA 90 mcg/actuation aerosol inhaler RxNorm: 5349404 2 Puff(s) INH QID 06/14/20 18 2018 Inactive Singulair 10 mg tablet RxNorm: 731603 1 Tablet(s) PO daily 06/14/20 18 2017 Inactive buspirone 7.5 mg tablet RxNorm: 345004 1 Tablet(s) PO BID 06/14/20 18 2017 Inactive Prozac 10 mg capsule RxNorm: 123532 1 Capsule(s) PO daily 06/14/20 18 2017 Inactive Neilmed Pediatric Sinus Rinse Refill packet RxNorm: 1 Unit Dose NASAL PRN 05/31/20 18 2021 Inactive diclofenac sodium 75 mg tablet,delayed release RxNorm: 232270 1 Tablet(s) PO BID 05/31/20 18 2017 Inactive lisinopril 2.5 mg tablet RxNorm: 315477 1 Tablet(s) PO daily 05/31/20 18 2017 Inactive metoprolol succinate ER 50 mg tablet,extended release 24 hr RxNorm: 368555 1 Tablet(s) PO daily 05/31/20 18 2017 Inactive levothyroxine 50 mcg tablet RxNorm: 050213 1 Tablet(s) PO daily 05/31/20 18 2017 Inactive TRUEplus Lancets 30 gauge RxNorm: 1 Lancets Miscellaneous QAM 05/31/20 18 2017 Inactive 100/box Ventolin HFA 90 mcg/actuation aerosol inhaler RxNorm: 355133 2 Puff(s) INH QID 05/31/20 18 2017 Inactive Aleve 220 mg capsule RxNorm: 0031105 1 Capsule(s) PO BID 05/31/20 18 2018 Inactive ranitidine 150 mg tablet RxNorm: 729278 1 Tablet(s) PO BID 05/31/20 18 2017 Inactive gabapentin 300 mg capsule RxNorm: 720051 1 Capsule(s) PO TID as needed 05/31/20 18 2017 Inactive atorvastatin 20 mg tablet RxNorm: 892304 1 Tablet(s) PO QHS 05/31/20 18 2017 Inactive True Metrix Glucose Test Strip RxNorm: 1 [facility] 05/31/20 18 2017 Inactive 50/container Calcium 600-D3 Plus 600 mg calcium-800 unit-50 mg tablet RxNorm: 1 Tablet(s) PO daily take an additonal tablet for itching. 05/31/20 18 2017 Inactive hydrochlorothiazide 12.5 mg tablet RxNorm: 473610 1 Tablet(s) PO QAM 05/31/20 18 2017 Inactive Flintstones Complete (iron) 18 mg iron chewable tablet RxNorm: 1 Tablet(s) PO daily 05/31/20 18 2017 Inactive True Metrix Glucose Meter RxNorm: miscellaneous 08/17/20 19 2018 Inactive sertraline 50 mg tablet RxNorm: 715600 1 Tablet(s) PO daily 11/28/19 20 2019 Inactive loperamide 2 mg tablet RxNorm: 249570 oral 09/29/20 19 2018 Inactive d-mannose oral powder RxNorm: PO 18 2021 Inactive Symbicort 160 mcg-4.5 mcg/actuation HFA aerosol inhaler RxNorm: 9002020 2 Puff(s) INH BID 08/17/20 19 2018 Inactive Medication Administered No Medication Administered data Procedures Procedure Codes Date Urinalysis, dip stick CPT-4: 76694 06/21/2019 Tobacco Assessment/Screening CPT-4: TCA Patient Health Questionnaire CPT-4: DPHQ AHA/REBECCA Classification Assessment CPT-4: DAHA 04/25/2019 Controlled Substance Report CPT-4: CTRSU 04/03 Urinalysis, dip stick CPT-4: 71508 03/28/2019 Urinalysis, dip stick CPT-4: 52361 03/28/[address]: 702485341 CPT-4: R14 Unknown Reason For Visit No Reason For Visit data Plan of Care Planned Activity Notes Codes Status Date Referral: Pending Gynecology Referral Information Referral Processed Referral: Pending Pulmonolog y Referral Information Referral Processed Referral: Pending Psychiatry Referral Information Referral Initiated Referral: Pending Respirator y Services Referral Information Referral Initiated Referral: Pending Ophthalmol ogy Referral Information Referral Initiated Referral: [facility] WPtel: [address] [facility] [address] Continuous Dryout Operator Helper placed a call out to the patient to notify her that it has been recommended that she be seen by 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 Patient agreed to be seen, does not have a provider of choice and no transportation issues. Continuous Dryout Operator Helper faxed referral and clinical notes to [facility] in [place], [place] near the patient's home. Patient to [...] seen and prefers a provider in the [place] [facility]. Continuous Dryout Operator Helper placed a call out to everyone listed in the area and the only location that was able to accept the patient's insurance was [facility] [place] [address] and spoke with Maylin. Maylin asked that the patient's referral, face sheet and visit notes be faxed to . Continuous Dryout Operator Helper faxed over requested documents. Patient appointment confirmation letter generated and mailed to her home address. Patient to call to schedule an appointment. Processed Referral: [facility] WPtel: [address] [place] [address] [place] [address] Patient notified that it has been advised that she be seen by Neurology. Patient agreed to be seen and prefers to be seen by a provider in the [place], [place] area. Patient denies any concerns with transportation, and prefers to schedule her own appointment. Continuous Dryout Operator Helper placed a call out to [facility] and spoke with Neeraj P: who confirmed that their office is able to accept new patients and the patient's insurance. After confirming the providers fax number, administrative underwriter faxed over the patient's referral, and [...]
--- OUTSIDE RECORDS SUMMARY | 2019-07-11 20:00 | XMS_ITS | CCD ---
Author Name Maricarmen KING, Sudha Address [address] [place] [address] Phone Organization [facility] Phone Care Team Providers Care Manufacturing Management Associate Name Role Phone Palomo KING, Anna Primary Care Provider Unav ailable Unavailable Chronic Care Management Unavaila ble Summary Purpose DataExchange Insurance Providers Payer name Policy type / Coverage type Covered constitution party ID Effective Begin Date Effective End Date SUKI MAYO [id number] Unknown Unknown Family history Mother Diagnosis Age [...] Unknown Disability 05/31/[address]: 229825912 Has never s moked or chewed tobacco 05/31/[address]: 643089490 Never drinks alco hol 05/31/2018 Has the [...] ICD- 10: N18.9 ICD-9: 585.9 06/21/2019 Active Essential (primary) hypertension ICD-10: I10 ICD-9: 401.9 10/03/2018 Active Hypertensive heart disease w ith heart failure ICD-10: I11.0 ICD-9: 402.91 04/25/2019 Active Hypothyroidism, unspecified ICD-10: E03. 9 ICD-9: 244.9 09/05/2018 Active Mixed incontinence ICD-10: N39.46 ICD-9: 788.33 05/24/2019 Active Type 2 diabetes mellitus wit hout complications ICD-10: E11.9 ICD-9: 250.00 10/03/2018 Active Hyperlipidemia, unspecified ICD-10: E78. 5 ICD-9: 272.4 05/30/2018 Active Obstructive sleep apnea (chio lt) (pediatric) ICD-10: G47.33 ICD-9: 327.23 06/21/2019 Active Apnea, not elsewhere classified ICD-10: R06.81 ICD-9: 786.03 01/31/2019 Active Encounter for immunization ICD-10: Z23 ICD-9: V03.9 04/25/2019 Active Encounter for screening, unspecified ICD -10: Z13.9 ICD-9: V82.9 09/05/2018 Active Unspecified asthma, uncomplicated ICD-10 : J45.909 ICD-9: 493.90 08/08/2018 Active Polyneuropathy, unspecified ICD-10: G62. 9 ICD-9: 356.9 05/30/2018 Active Patient Not Seen ICD-10: UXZ.01 ICD-9: XZ0.1 04/27/2019 Active Encounter for screening for malignant neoplasm of cervix ICD-10: Z12.4 ICD-9: V76.2 04/25/2019 Active Other halfway (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 ICD-10: Z79.899 ICD-9: [...] ICD-10: J06.9 ICD-9: 465.9 09/23/2018 Resolved senior living (current) use of non-steroidal anti-inflammatories (NSAID) ICD-10: Z79.1 ICD-9: V58.64 06/13/2018 Active Medications Medication Codes Instructions Start Date Stop Date Status Fill Instructions atorvastatin 40 mg tablet RxNorm: 105703 1 Tablet(s) Oral every day 07/04/20 19 2019 Inactive hydrochlorothiazide 12.5 mg tablet RxNorm: 310870 1 Tablet(s) PO QAM 06/26/20 19 2019 Inactive levmetamfetamine 50 mg nasal inhaler RxNorm: 1 Unit(s) NASAL Q3-4H Do not use more than every 3 hours or 8 times/24hours 06/26/20 19 2021 Inactive Please do not auto refill. This refill negates all other refills of this medication Ventolin HFA 90 mcg/actuation aerosol inhaler RxNorm: 162755 2 Puff(s) INH QID 06/26/20 19 2018 Inactive Please do not fill early. Please do not auto refill. This refill negates all other refills of this medication Singulair 10 mg tablet RxNorm: 022780 1 Tablet(s) PO daily 06/26/20 19 2019 Inactive This refill negates all other refills of this medication cetirizine 10 mg tablet RxNorm: 3499316 1 Tablet(s) PO daily 06/26/20 19 2019 Inactive This refill negates all other refills of this medication. Please do not auto refill levothyroxine 50 mcg tablet RxNorm: 762904 1 Tablet(s) PO daily 06/26/20 19 2019 Inactive This refill negates all other refills of this medication diclofenac sodium 75 mg tablet,delayed release RxNorm: 055930 1 Tablet(s) PO BID 06/26/20 19 2019 Inactive This refill negates all other refills of this medication ranitidine 150 mg tablet RxNorm: 649637 1 Tablet(s) PO BID 06/26/20 19 2018 Inactive This refill negates all other refills of this medication buspirone 7.5 mg tablet RxNorm: 866458 1 Tablet(s) PO BID 06/26/202020 Inactive This refill negates all other refills of this medication Calcium 600-D3 Plus (mag-zinc) 600 mg calcium-800 unit-50 mg tablet RxNorm: 1 Tablet(s) PO daily take an additonal tablet for itching. 06/26/20 19 2018 Inactive This refill negates all other refills of this medication albuterol sulfate 2.5 mg/3 mL (0.083 %) solution for nebulization RxNorm: 876207 1 Vial INH QID 06/26/20 19 2018 Inactive 60/box. This refill negates all other refills of this medication. Please do not fill early. Please do not auto refill. lisinopril 2.5 mg tablet RxNorm: 072256 1 Tablet(s) PO daily 06/21/20 19 2019 Inactive gabapentin 300 mg capsule RxNorm: 342703 1 Capsule(s) PO TID 06/21/20 19 2019 Inactive atorvastatin 20 mg tablet RxNorm: 099476 1 Tablet(s) PO QHS 06/07/20 19 2018 Inactive This refill negates all other refills of this medication TRUEplus Lancets 30 gauge RxNorm: 1 Lancets Miscellaneous QAM 05/29/20 19 2018 Inactive 100/box gabapentin 300 mg capsule RxNorm: 116195 1 Capsule(s) PO TID 05/03/20 19 2018 Inactive César Beckett (iron) 18 mg iron chewable tablet RxNorm: 1 Tablet(s) PO daily 04/04/20 19 2021 Inactive This refill negates all other refills of this medication True Metrix Glucose Test Strip RxNorm: 1 Test Strips Miscellaneous QA 02/01/20 19 2018 Inactive 100/container Alcohol Prep Pads RxNorm: 149954 1 Patch TOP QAM 02/01/20 19 2018 Inactive gabapentin 300 mg capsule RxNorm: 561298 1 Capsule(s) PO TID as needed 02/01/202018 Inactive TRUEplus Lancets 30 gauge RxNorm: 1 Lancets Miscellaneous QAM 02/01/20 19 2018 Inactive 100/box lisinopril 2.5 mg tablet RxNorm: 298896 1 Tablet(s) PO daily 12/28/192018 Inactive ranitidine 150 mg tablet RxNorm: 341935 1 Tablet(s) PO BID 10/21/192018 Inactive This refill negates all other refills of this medication albuterol sulfate 2.5 mg/3 mL (0.083 %) solution for nebulization RxNorm: 440747 1 Vial INH QID 10/21/192018 Inactive 60/box. [...] this medication gabapentin 300 mg capsule RxNorm: 950074 1 Capsule(s) PO TID as needed 10/21/192018 Inactive atorvastatin 20 mg tablet RxNorm: 702315 1 Tablet(s) PO QHS 10/21/19 2018 Inactive This refill negates all other refills of this medication trazodone 50 mg tablet RxNorm: 536581 1 Tablet(s) PO QHS 10/21/19 19 2018 Inactive This refill negates all other refills of this medication Ventolin HFA 90 mcg/actuation aerosol inhaler RxNorm: 275100 2 Puff(s) INH QID 10/21/19 19 2018 Inactive Please do not fill early. Please do not auto refill. This refill negates all other refills of this medication Calcium 600-D3 Plus 600 mg calcium-800 unit-50 mg tablet RxNorm: 1 Tablet(s) PO daily take an additonal tablet for itching. 10/21/192018 Inactive This refill negates all other refills of this medication Singulair 10 mg tablet RxNorm: 249822 1 Tablet(s) PO daily 10/21/192018 Inactive This refill negates all other refills of this medication buspirone 7.5 mg tablet RxNorm: 056025 1 Tablet(s) PO BID 10/21/19 19 2018 Inactive This refill negates all other refills of this medication diclofenac sodium 75 mg tablet,delayed release RxNorm: 915589 1 Tablet(s) PO BID 10/21/19 19 2018 Inactive This refill negates all other refills of this medication hydrochlorothiazide 12.5 mg tablet RxNorm: 386553 1 Tablet(s) PO QAM 10/21/192018 Inactive metoprolol succinate ER 50 mg tablet,extended release 24 hr RxNorm: 811835 1 Tablet(s) PO daily 10/21/192018 Inactive This refill negates all other refills of this medication levothyroxine 50 mcg tablet RxNorm: 346306 1 Tablet(s) PO daily 10/21/19 19 2018 Inactive This refill negates all other refills of this medication cetirizine 10 mg tablet RxNorm: 0259051 1 Tablet(s) PO daily 10/21/192018 Inactive This refill negates all other refills of this medication. Please do not auto refill Flintstones Complete (iron) 18 mg iron chewable tablet RxNorm: 1 Tablet(s) PO daily 10/21/19 19 2018 Inactive This refill negates all other refills of this medication buspirone 7.5 mg tablet RxNorm: 577377 1 Tablet(s) PO BID 10/12/19 19 2018 Inactive cetirizine 10 mg tablet RxNorm: 1584746 1 Tablet(s) PO daily 09/28/20 18 2018 Inactive Guaiasorb DM 10 mg-100 mg/5 mL oral liquid RxNorm: 747105 10 Milliliter(s) PO As needed every 4 hr 09/24/202018 Inactive Vicks Vaporub 4.7 %-1.2 %-2.6 % topical ointment RxNorm: 4055172 1 Application TOP TID 09/24/20 18 2018 Inactive levmetamfetamine 50 mg nasal inhaler RxNorm: 1 Unit(s) NASAL Q3-4H 09/24/20 18 2017 Inactive sertraline 50 mg tablet RxNorm: 183392 1 Tablet(s) PO daily 09/09/20 18 2018 Inactive Please note dose trazodone 50 mg tablet RxNorm: 217532 1 Tablet(s) PO QHS 09/06/20 18 2018 Inactive sertraline 50 mg tablet RxNorm: 959947 1 Tablet(s) PO daily 09/06/20 18 2017 Inactive amoxicillin 500 mg tablet RxNorm: 312590 1 Tablet(s) PO Q12H 08/31/20 18 2017 Inactive albuterol sulfate 2.5 mg/3 mL (0.083 %) solution for nebulization RxNorm: 449387 1 Vial INH QID 08/10/20 18 2018 Inactive 60/box. Please do not fill early. Please do not auto refill. Prozac 10 mg capsule RxNorm: 840413 1 Capsule(s) PO daily 08/09/20 18 2017 Inactive buspirone 7.5 mg tablet RxNorm: 783246 1 Tablet(s) PO BID 08/09/20 18 2018 Inactive gabapentin 300 mg capsule RxNorm: 214052 1 Capsule(s) PO TID as needed 08/01/20 18 2018 Inactive hydrochlorothiazide 12.5 mg tablet RxNorm: 582966 1 Tablet(s) PO QAM 08/01/20 18 2018 Inactive ranitidine 150 mg tablet RxNorm: 138951 1 Tablet(s) PO BID 08/01/20 18 2018 Inactive Macrobid 100 mg capsule RxNorm: 240711 1 Capsule(s) PO Q12H 06/21/20 18 2017 Inactive Singulair 10 mg tablet RxNorm: 846106 1 Tablet(s) PO daily 06/14/20 18 2018 Inactive Ventolin HFA 90 mcg/actuation aerosol inhaler RxNorm: 3814912 2 Puff(s) INH QID 06/14/20 18 2018 Inactive Singulair 10 mg tablet RxNorm: 543912 1 Tablet(s) PO daily 06/14/20 18 2017 Inactive buspirone 7.5 mg tablet RxNorm: 493663 1 Tablet(s) PO BID 06/14/20 18 2017 Inactive Prozac 10 mg capsule RxNorm: 489757 1 Capsule(s) PO daily 06/14/20 18 2017 Inactive Neilmed Pediatric Sinus Rinse Refill packet RxNorm: 1 Unit Dose NASAL PRN 05/31/20 18 2021 Inactive diclofenac sodium 75 mg tablet,delayed release RxNorm: 802257 1 Tablet(s) PO BID 05/31/20 18 2017 Inactive lisinopril 2.5 mg tablet RxNorm: 197823 1 Tablet(s) PO daily 05/31/20 18 2017 Inactive metoprolol succinate ER 50 mg tablet,extended release 24 hr RxNorm: 566290 1 Tablet(s) PO daily 05/31/20 18 2017 Inactive levothyroxine 50 mcg tablet RxNorm: 794285 1 Tablet(s) PO daily 05/31/20 18 2017 Inactive TRUEplus Lancets 30 gauge RxNorm: 1 Lancets Miscellaneous QAM 05/31/20 18 2017 Inactive 100/box Ventolin HFA 90 mcg/actuation aerosol inhaler RxNorm: 859727 2 Puff(s) INH QID 05/31/20 18 2017 Inactive Aleve 220 mg capsule RxNorm: 7224498 1 Capsule(s) PO BID 05/31/20 18 2018 Inactive ranitidine 150 mg tablet RxNorm: 024189 1 Tablet(s) PO BID 05/31/20 18 2017 Inactive gabapentin 300 mg capsule RxNorm: 248435 1 Capsule(s) PO TID as needed 05/31/20 18 2017 Inactive atorvastatin 20 mg tablet RxNorm: 350487 1 Tablet(s) PO QHS 05/31/20 18 2017 Inactive True Metrix Glucose Test Strip RxNorm: 1 Test Strips Miscellaneous QAM 05/31/20 18 2017 Inactive 50/container Calcium 600-D3 Plus 600 mg calcium-800 unit-50 mg tablet RxNorm: 1 Tablet(s) PO daily take an additonal tablet for itching. 05/31/20 18 2017 Inactive hydrochlorothiazide 12.5 mg tablet RxNorm: 955025 1 Tablet(s) PO QAM 05/31/20 18 2017 Inactive Flintstones Complete (iron) 18 mg iron chewable tablet RxNorm: 1 Tablet(s) PO daily 05/31/20 18 2017 Inactive True Metrix Glucose Meter RxNorm: miscellaneous 08/17/20 19 2018 Inactive sertraline 50 mg tablet RxNorm: 163407 1 Tablet(s) PO daily 11/28/19 20 2019 Inactive loperamide 2 mg tablet RxNorm: 914864 oral 09/29/20 19 2018 Inactive d-mannose oral powder RxNorm: PO 18 2021 Inactive Symbicort 160 mcg-4.5 mcg/actuation HFA aerosol inhaler RxNorm: 6830865 2 Puff(s) INH BID 08/17/20 19 2018 Inactive Medication Administered No Medication Administered data Results Observation Observation Code Item Item Code Result Date Service Location COMPLETE CBC W/ DIFF WBC 74234 WBC 6690-2 8.0 K/ul 07/06/20 [facility] [address] [place] [address] COMPLETE CBC W/ DIFF WBC 04023 RBC 789-8 4.24 M/uL 07/06/20 [facility] [address] [place] [address] COMPLETE CBC W/ DIFF WBC 60148 Hemoglobin 718-7 11.8 g/dL 07/06/20 [facility] [address] [place] [address] COMPLETE CBC W/ DIFF WBC 97454 Hematocrit 4544-3 35.8 % 07/06/20 [facility] [address] [place] [address] COMPLETE CBC W/ DIFF WBC 43077 MCV 787-2 84.4 fL 07/06/20 [facility] [address] [place] [address] COMPLETE CBC W/ DIFF WBC 52866 MCH 785-6 27.9 pg 07/06/20 [facility] [address] [place] [address] COMPLETE CBC W/ DIFF WBC 11845 MCHC 786-4 33.0 g/dL 07/06/20 [facility] [address] [place] [address] COMPLETE CBC W/ DIFF WBC 33830 RDW 788-0 15.5 % 07/06/20 [facility] [address] [place] [address] COMPLETE CBC W/ DIFF WBC 03908 Platelet Count 777-3 353 K/uL 07/06/20 [facility] [address] [place] [address] 13189 COMPLETE CBC W/ DIFF WBC 98761 MPV 80667-9 8.9 fL 07/06/20 [facility] [address] [place] [address] COMPLETE CBC W/ DIFF WBC 04119 Neutrophils % 770-8 62.5 % 07/06/20 [facility] [address] [place] [address] 35417 COMPLETE CBC W/ DIFF WBC 86806 Lymphocytes % 736-9 31.4 % 07/06/20 [facility] [address] [place] [address] COMPLETE CBC W/ DIFF WBC 37986 Monocytes % 5905-5 5.1 % 07/06/20 [facility] [address] [place] [address] COMPLETE CBC W/ DIFF WBC 03316 Eosinophils % 713-8 0.5 % 07/06/20 19 [facility] [address] [place] [address] COMPLETE CBC W/ DIFF WBC 69792 Basophils% 706-2 0.5 % 07/06/20 19 [facility] [address] [place] [address] COMPLETE CBC W/ DIFF WBC 60607 Absolute Neutrophil 751-8 5000 /ul 07/06/20 19 [facility] [address] [place] [address] 15498 COMPLETE CBC W/ DIFF WBC 24689 Absolute Lymphocyte 59842-6 2512 /ul 07/06/20 19 [facility] [address] [place] [address] 76916 COMPLETE CBC W/ DIFF WBC 73947 Absolute Monocyte 742-7 408 /ul 07/06/20 19 [facility] [address] [place] [address] 95349 COMPLETE CBC W/ DIFF WBC 09237 Absolute Eosinophil 711-2 40 /ul 07/06/20 19 [facility] [address] [place] [address] 29018 COMPLETE CBC W/ DIFF WBC 86862 Absolute Basophil 704-7 40 /ul 07/06/20 19 [facility] [address] [place] [address] 89523 MAGNESIUM 02885 Magnesium 39273-4 2.3 mg/dL 07/05/20 19 [facility] [address] [place] [address] 31703 URIC ACID 18358 Uric Acid 3084-1 6.0 mg/dL 07/05/20 19 [facility] [address] [place] [address] 77299 PTH 99839 PTH 2731-8 75.9 pg/mL 07/05/20 19 [facility] [address] [place] [address] 55363 CHEM 14 (METABOLIC PANEL) 49534 Glucose 2345-7 93 mg/dL 07/05/20 19 [facility] [address] [place] [address] 64753 CHEM 14 (METABOLIC PANEL) 64867 BUN 3094-0 17 mg/dL 07/05/20 19 [facility] [address] [place] [address] 22936 CHEM 14 (METABOLIC PANEL) 64918 Creatinine 2160-0 0.7 mg/dL 07/05/20 19 [facility] [address] [place] [address] 57230 CHEM 14 (METABOLIC PANEL) 98235 BUN/Creat Ratio 3097-3 23.5 07/05/20 19 [facility] [address] [place] [address] 94076 CHEM 14 (METABOLIC PANEL) 12737 GFR Estimated 98971-3 93 mL/min/1.7 3m2 07/05/20 [facility] [address] [place] [address] CHEM 14 (METABOLIC PANEL) 21288 GFR Estimated for Americans 48078-7 112 mL/min/1.7 3m2 07/05/20 [facility] [address] [place] [address] CHEM 14 (METABOLIC PANEL) 38424 Sodium 2951-2 140 mmol/L 07/05/20 [facility] [address] [place] [address] CHEM 14 (METABOLIC PANEL) 68643 Potassium 2823-3 3.8 mmol/L 07/05/20 [facility] [address] [place] [address] CHEM 14 (METABOLIC PANEL) 46241 Chloride 2075-0 105 mmol/L 07/05/20 [facility] [address] [place] [address] 51966 CHEM 14 (METABOLIC PANEL) 23467 Total CO2 2028-9 22 mmol/L 07/05/20 [facility] [address] [place] [address] CHEM 14 (METABOLIC PANEL) 75221 Anion Gap 1863-0 16.8 mEq/L 07/05/20 [facility] [address] [place] [address] CHEM 14 (METABOLIC PANEL) 38970 Calculated Serum Osmolality 50037-3 291 mOsm/kg 07/05/20 [facility] [address] [place] [address] CHEM 14 (METABOLIC PANEL) 83987 Albumin 96974-4 4.0 g/dL 07/05/20 [facility] [address] [place] [address] CHEM 14 (METABOLIC PANEL) 46397 Total Protein 2885-2 7.5 g/dL 07/05/20 [facility] [address] [place] [address] CHEM 14 (METABOLIC PANEL) 41740 Globulin 2336-6 3.5 g/dL 07/05/20 [facility] [address] [place] [address] CHEM 14 (METABOLIC PANEL) 35665 Albumin/Globuli n Ratio 1759-0 1.1 07/05/20 [facility] [address] [place] [address] CHEM 14 (METABOLIC PANEL) 81209 ALK PHOS 6768-6 68.00 U/L 07/05/20 [facility] [address] [place] [address] CHEM 14 (METABOLIC PANEL) 62223 SGOT/AST 1920-8 12 U/L 07/05/20 [facility] [address] [place] [address] CHEM 14 (METABOLIC PANEL) 64681 SGPT/ALT 1743-4 29 U/L 07/05/20 [facility] [address] [place] [address] CHEM 14 (METABOLIC PANEL) 95351 Total Bilirubin 1975-2 0.3 mg/dL 07/05/20 [facility] [address] [place] [address] CHEM 14 (METABOLIC PANEL) 05711 Calcium 42085-0 9.5 mg/dL 07/05/20 [facility] [address] [place] [address] CHEM 14 (METABOLIC PANEL) 45978 Corrected Calcium 27407-0 9.7 mg/dL 07/05/20 [facility] [address] [place] [address] PHOSPHORUS 52774 Phosphorus 2777-1 3.5 mg/dL 07/05/20 [facility] [address] [place] [address] [id number] OBIN 4548-4 Glyco HGB A1C 69025-2 5.6 % 07/05/20 [facility] [address] [place] [address] [id number] OBIN 4548-4 eAG 93822-8 114 mg/dL 07/05/20 [facility] [address] [place] [address] FREE T-3 27595 FT3 3051-0 1.82 pg/mL 07/05/20 [facility] [address] [place] [address] FREE T-4 49590 FT4 3024-7 1.17 ng/dL 07/05/20 [facility] [address] [place] [address] Procedures Procedure Codes Date Urinalysis, dip stick CPT-4: 32224 06/21/2019 Tobacco Assessment/Screening CPT-4: TCA Patient Health Questionnaire CPT-4: DPHQ AHA/REBECCA Classification Assessment CPT-4: DAHA 04/25/2019 Controlled Substance Report CPT-4: CTRSU 04/03 Urinalysis, dip stick CPT-4: 46569 03/28/2019 Urinalysis, dip stick CPT-4: 25163 03/28/2019 [id number] CPT-4: 58954 Unknown Gynecology Referral SNOMED CT: 508296247 CPT-4: R14 Unknown Vital Signs Date Vital 07/04/2019 Random Blood [...] 2 diabetes mellitus without complications[ICD10 : E11.9] [facility] [address] [place] [address] CPT-4: 17725 07/04/2019 Plan of Care Planned Activity Notes Codes Status Date Care Plan: RENAL FUNCTION PANEL LOINC : 83611-5 Pending 07/05/2019 Care Plan: DME Ordered 07/05/2019 Visit Plan: States having more bruising does not remembering injuring self, send for labs for cbc and chem 14 pt states allergic to bananas states makes her nausea, pt to avoid bananas Can not use windex, breaking out from cleaning supplies, hives have resolved Kidney ultra sound negative results reviewed with pt Saw eye Dr Hawkins in [facility] , looking for a dentist N18.9-585.9 Chronic kidney disease, unspecified avoid nephro toxic drugs, labs drawn for chem14 a1c, cbs I10-401.9 Essential (primary) hypertension I11.0-402.91 Hypertensive heart disease with heart failure bp as documented cont hctz E03.9-244.9 Hypothyroidism, unspecified cont levothyroxine N39.46-788.33 Mixed incontinence send order for pads E11.9-250.00 Type 2 diabetes mellitus without complications cont to control with diet a1c sent 07/04/2019 Patient Education: Patient Medication Summary Completed 07/04/2019 Appointment: Sudha Hernadez WPtel: [address] [id number] 06/21/2019 Appointment: Charlene Oropeza WPtel: [address] [facility] [id number] E452 05/24/2019 Appointment: Bianca Delgadoedo E452 04/27/2019 Appointment: Charlene Oropeza WPtel: [address] [facility] [id number] E452 04/25/2019 Appointment: Rasta Palafox WPtel: [address] [place] [address] [id number] 03/28/2019 Appointment: Rasta Palafox WPtel: [address] [facility] [id number] E452 02/14/2019 Appointment: Rasta Palafox WPtel: [address] [place] [address] [id number] 01/31/2019 Appointment: Rasta Palafox WPtel: [address] [place] [address] [id number] E420 12/27/2018 Referral: Pending Gynecology Referral Information Referral Processed Referral: Pending Pulmonology Referral Information Referral Processed Referral: Pending Psychiatry Referral Information Referral Initiated Referral: Pending Respiratory Services Referral Information Referral Initiated Referral: Pending Ophthalmology Referral Information Referral Initiated Referral: [facility] WPtel: [address] Manager Wound placed a call out to the patient to notify her that it has been recommended that she be seen by 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 Patient agreed to be seen, does not have a provider of choice and no transportation issues. Manager Wound faxed referral and clinical notes to [facility] in [place], [place] near the patient's home. Patient to [...] seen and prefers a provider in the [place] or [place] area. Manager Wound placed a call out to everyone listed in the area and the only location that was able to accept the patient's insurance was [facility] [place] [address] and spoke with Maylin. Maylin asked that the patient's referral, face sheet and visit notes be faxed to . Manager Wound faxed over requested documents. Patient appointment confirmation letter generated and mailed to her home address. Patient to call to schedule an appointment. Processed Referral: [facility] WPtel: [address] [place] [address] Patient notified that it has been advised that she be seen by Neurology. Patient agreed to be seen and prefers to be seen by a provider in the [place], [place] area. Patient denies any concerns with transportation, and prefers to schedule her own appointment. Manager Wound placed a call out to [facility] and spoke with Neeraj P: who confirmed that their office is able to accept new patients and the patient's insurance. After confirming the providers fax number, report writer faxed over the patient's referral, [...] Information Referral Initiated Instructions Comment Date . States having more bruisin g does not remembering injuring self, send for labs for cbc and chem 14 pt states allergic to bananas states makes her nausea, pt to avoid bananas Can not use windex, breaking out from cleaning supplies, hives have resolved Kidney ultra sound negative results reviewed with pt Saw eye Dr Hawkins in [place] [facility] , looking for a dentist N18.9-585.9 Chronic [...]
--- OUTSIDE RECORDS SUMMARY | 2019-08-08 20:00 | XMS_ITS | CCD ---
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 Disposal Man Name Role Phone Palomo KING, Anna Primary Care Provider Unav ailable Unavailable Chronic Care Management Unavaila ble Summary Purpose DataExchange Insurance Providers Payer name Policy type / Coverage type Covered libertarian ID Effective Begin Date Effective End Date [employer]KI [employer]TS MARIA ESTHER [id number] Unknown Unknown Family history Mother Diagnosis Age [...] Unknown Disability 05/31/[address]: 629084624 Has never s moked or chewed tobacco 05/31/[address]: 092360284 Never drinks alco hol 05/31/2018 Has the [...] unspecified ICD-10: J06.9 ICD-9: 465.9 09/23/2018 Resolved correction (current) use of non-steroidal anti-inflammatories (NSAID) ICD-10: Z79.1 ICD-9: V58.64 06/13/2018 Active Medications Medication Codes Instructions Start Date Stop Date Status Fill Instructions True Metrix Glucose Test Strip RxNorm: 1 Test Strips Miscellaneous QAM 08/09/20 19 2019 Inactive 100/container Ventolin HFA 90 mcg/actuation aerosol inhaler RxNorm: 738859 2 Puff(s) INH QID 08/09/202019 Inactive Please do not fill early. Please do not auto refill. This refill negates all other refills of this medication atorvastatin 40 mg tablet RxNorm: 084184 1 Tablet(s) Oral every day 07/04/20 19 2019 Inactive hydrochlorothiazide 12.5 mg tablet RxNorm: 968919 1 Tablet(s) PO QAM 06/26/20 19 2019 Inactive levmetamfetamine 50 mg nasal inhaler RxNorm: 1 Unit(s) NASAL Q3-4H Do not use more than every 3 hours or 8 times/24hours 06/26/202021 Inactive Please do not auto refill. This refill negates all other refills of this medication Singulair 10 mg tablet RxNorm: 088871 1 Tablet(s) PO daily 06/26/20 19 2019 Inactive This refill negates all other refills of this medication cetirizine 10 mg tablet RxNorm: 5022739 1 Tablet(s) PO daily 06/26/20 19 2019 Inactive This refill negates all other refills of this medication. Please do not auto refill levothyroxine 50 mcg tablet RxNorm: 755164 1 Tablet(s) PO daily 06/26/20 19 2019 Inactive This refill negates all other refills of this medication diclofenac sodium 75 mg tablet,delayed release RxNorm: 663626 1 Tablet(s) PO BID 06/26/20 19 2019 Inactive This refill negates all other refills of this medication ranitidine 150 mg tablet RxNorm: 256429 1 Tablet(s) PO BID 06/26/20 19 2018 Inactive This refill negates all other refills of this medication buspirone 7.5 mg tablet RxNorm: 490033 1 Tablet(s) PO BID 06/26/20 19 2020 Inactive This refill negates all other refills of this medication Calcium 600-D3 Plus (mag-zinc) 600 mg calcium-800 unit-50 mg tablet RxNorm: 1 Tablet(s) PO daily take an additonal tablet for itching. 06/26/20 19 2018 Inactive This refill negates all other refills of this medication albuterol sulfate 2.5 mg/3 mL (0.083 %) solution for nebulization RxNorm: 623579 1 Vial INH QID 06/26/20 19 2018 Inactive 60/box. This refill negates all other refills of this medication. Please do not fill early. Please do not auto refill. Ventolin HFA 90 mcg/actuation aerosol inhaler RxNorm: 873630 2 Puff(s) INH QID 06/26/20 19 2018 Inactive Please do not fill early. Please do not auto refill. This refill negates all other refills of this medication lisinopril 2.5 mg tablet RxNorm: 123000 1 Tablet(s) PO daily 06/21/20 19 2019 Inactive gabapentin 300 mg capsule RxNorm: 713146 1 Capsule(s) PO TID 06/21/20 19 2019 Inactive atorvastatin 20 mg tablet RxNorm: 089180 1 Tablet(s) PO QHS 06/07/20 19 2018 Inactive This refill negates all other refills of this medication TRUEplus Lancets 30 gauge RxNorm: 1 Lancets Miscellaneous QAM 05/29/20 19 2018 Inactive 100/box gabapentin 300 mg capsule RxNorm: 887846 1 Capsule(s) PO TID 05/03/20 19 2018 Inactive Flintstones Complete (iron) 18 mg iron chewable tablet RxNorm: 1 Tablet(s) PO daily 04/04/202021 Inactive This refill negates all other refills of this medication Alcohol Prep Pads RxNorm: 289438 1 Patch TOP QAM 02/01/202018 Inactive gabapentin 300 mg capsule RxNorm: 699748 1 Capsule(s) PO TID as needed 02/01/20 19 2018 Inactive True Metrix Glucose Test Strip RxNorm: 1 Test Strips Miscellaneous QAM 02/01/20 19 2018 Inactive 100/container TRUEplus Lancets 30 gauge RxNorm: 1 Lancets Miscellaneous QAM 02/01/20 19 2018 Inactive 100/box lisinopril 2.5 mg tablet RxNorm: 838013 1 Tablet(s) PO daily 12/28/19 19 2018 Inactive ranitidine 150 mg tablet RxNorm: 516855 1 Tablet(s) PO BID 10/21/19 19 2018 Inactive This refill negates all other refills of this medication albuterol sulfate 2.5 mg/3 mL (0.083 %) solution for nebulization RxNorm: 776347 1 Vial INH QID 10/21/192018 Inactive 60/box. [...] this medication gabapentin 300 mg capsule RxNorm: 901300 1 Capsule(s) PO TID as needed 10/21/19 19 2018 Inactive atorvastatin 20 mg tablet RxNorm: 835998 1 Tablet(s) PO QHS 10/21/19 19 2018 Inactive This refill negates all other refills of this medication trazodone 50 mg tablet RxNorm: 595739 1 Tablet(s) PO QHS 10/21/19 19 2018 Inactive This refill negates all other refills of this medication Ventolin HFA 90 mcg/actuation aerosol inhaler RxNorm: 846034 2 Puff(s) INH QID 10/21/19 19 2018 Inactive Please do not fill early. Please do not auto refill. This refill negates all other refills of this medication Calcium 600-D3 Plus 600 mg calcium-800 unit-50 mg tablet RxNorm: 1 Tablet(s) PO daily take an additonal tablet for itching. 10/21/192018 Inactive This refill negates all other refills of this medication Singulair 10 mg tablet RxNorm: 174155 1 Tablet(s) PO daily 10/21/19 19 2018 Inactive This refill negates all other refills of this medication buspirone 7.5 mg tablet RxNorm: 611130 1 Tablet(s) PO BID 10/21/192018 Inactive This refill negates all other refills of this medication diclofenac sodium 75 mg tablet,delayed release RxNorm: 155004 1 Tablet(s) PO BID 10/21/192018 Inactive This refill negates all other refills of this medication hydrochlorothiazide 12.5 mg tablet RxNorm: 032310 1 Tablet(s) PO QAM 10/21/192018 Inactive metoprolol succinate ER 50 mg tablet,extended release 24 hr RxNorm: 234531 1 Tablet(s) PO daily 10/21/192018 Inactive This refill negates all other refills of this medication levothyroxine 50 mcg tablet RxNorm: 674016 1 Tablet(s) PO daily 10/21/192018 Inactive This refill negates all other refills of this medication cetirizine 10 mg tablet RxNorm: 4472449 1 Tablet(s) PO daily 10/21/192018 Inactive This refill negates all other refills of this medication. Please do not auto refill Flintstones Complete (iron) 18 mg iron chewable tablet RxNorm: 1 Tablet(s) PO daily 10/21/192018 Inactive This refill negates all other refills of this medication buspirone 7.5 mg tablet RxNorm: 982479 1 Tablet(s) PO BID 10/12/192018 Inactive cetirizine 10 mg tablet RxNorm: 2189821 1 Tablet(s) PO daily 09/28/202018 Inactive Guaiasorb DM 10 mg-100 mg/5 mL oral liquid RxNorm: 312499 10 Milliliter(s) PO As needed every 4 hr 09/24/202018 Inactive Vicks Vaporub 4.7 %-1.2 %-2.6 % topical ointment RxNorm: 3030074 1 Application TOP TID 09/24/20 18 2018 Inactive levmetamfetamine 50 mg nasal inhaler RxNorm: 1 Unit(s) NASAL Q3-4H 09/24/20 18 2017 Inactive sertraline 50 mg tablet RxNorm: 556602 1 Tablet(s) PO daily 09/09/20 18 2018 Inactive Please note dose trazodone 50 mg tablet RxNorm: 613695 1 Tablet(s) PO QHS 09/06/20 18 2018 Inactive sertraline 50 mg tablet RxNorm: 054166 1 Tablet(s) PO daily 09/06/20 18 2017 Inactive amoxicillin 500 mg tablet RxNorm: 430921 1 Tablet(s) PO Q12H 08/31/20 18 2017 Inactive albuterol sulfate 2.5 mg/3 mL (0.083 %) solution for nebulization RxNorm: 105220 1 Vial INH QID 08/10/20 18 2018 Inactive 60/box. Please do not fill early. Please do not auto refill. Prozac 10 mg capsule RxNorm: 493818 1 Capsule(s) PO daily 08/09/20 18 2017 Inactive buspirone 7.5 mg tablet RxNorm: 110232 1 Tablet(s) PO BID 08/09/20 18 2018 Inactive gabapentin 300 mg capsule RxNorm: 269412 1 Capsule(s) PO TID as needed 08/01/20 18 2018 Inactive hydrochlorothiazide 12.5 mg tablet RxNorm: 943674 1 Tablet(s) PO QAM 08/01/20 18 2018 Inactive ranitidine 150 mg tablet RxNorm: 630130 1 Tablet(s) PO BID 08/01/20 18 2018 Inactive Macrobid 100 mg capsule RxNorm: 029844 1 Capsule(s) PO Q12H 06/21/20 18 2017 Inactive Singulair 10 mg tablet RxNorm: 063329 1 Tablet(s) PO daily 06/14/20 18 2018 Inactive Ventolin HFA 90 mcg/actuation aerosol inhaler RxNorm: 6595907 2 Puff(s) INH QID 06/14/20 18 2018 Inactive Singulair 10 mg tablet RxNorm: 650010 1 Tablet(s) PO daily 06/14/20 18 2017 Inactive buspirone 7.5 mg tablet RxNorm: 420112 1 Tablet(s) PO BID 06/14/20 18 2017 Inactive Prozac 10 mg capsule RxNorm: 847733 1 Capsule(s) PO daily 06/14/20 18 2017 Inactive Neilmed Pediatric Sinus Rinse Refill packet RxNorm: 1 Unit Dose NASAL PRN 05/31/20 18 2021 Inactive diclofenac sodium 75 mg tablet,delayed release RxNorm: 705035 1 Tablet(s) PO BID 05/31/20 18 2017 Inactive lisinopril 2.5 mg tablet RxNorm: 508599 1 Tablet(s) PO daily 05/31/20 18 2017 Inactive metoprolol succinate ER 50 mg tablet,extended release 24 hr RxNorm: 258736 1 Tablet(s) PO daily 05/31/20 18 2017 Inactive levothyroxine 50 mcg tablet RxNorm: 495385 1 Tablet(s) PO daily 05/31/20 18 2017 Inactive TRUEplus Lancets 30 gauge RxNorm: 1 Lancets Miscellaneous QAM 05/31/20 18 2017 Inactive 100/box Ventolin HFA 90 mcg/actuation aerosol inhaler RxNorm: 370175 2 Puff(s) INH QID 05/31/20 18 2017 Inactive Aleve 220 mg capsule RxNorm: 4968788 1 Capsule(s) PO BID 05/31/20 18 2018 Inactive ranitidine 150 mg tablet RxNorm: 513913 1 Tablet(s) PO BID 05/31/20 18 2017 Inactive gabapentin 300 mg capsule RxNorm: 421356 1 Capsule(s) PO TID as needed 05/31/20 18 2017 Inactive atorvastatin 20 mg tablet RxNorm: 814008 1 Tablet(s) PO QHS 05/31/20 18 2017 Inactive True Metrix Glucose Test Strip RxNorm: 1 Test Strips Miscellaneous QAM 05/31/20 18 2017 Inactive 50/container Calcium 600-D3 Plus 600 mg calcium-800 unit-50 mg tablet RxNorm: 1 Tablet(s) PO daily take an additonal tablet for itching. 05/31/20 18 2017 Inactive hydrochlorothiazide 12.5 mg tablet RxNorm: 474751 1 Tablet(s) PO QAM 05/31/20 18 2017 Inactive Flintstones Complete (iron) 18 mg iron chewable tablet RxNorm: 1 Tablet(s) PO daily 05/31/20 18 2017 Inactive True Metrix Glucose Meter RxNorm: miscellaneous 08/17/20 19 2018 Inactive sertraline 50 mg tablet RxNorm: 883472 1 Tablet(s) PO daily 11/28/19 20 2019 Inactive loperamide 2 mg tablet RxNorm: 345640 oral 09/29/20 19 2018 Inactive d-mannose oral powder RxNorm: PO 18 2021 Inactive Symbicort 160 mcg-4.5 mcg/actuation HFA aerosol inhaler RxNorm: 3660333 2 Puff(s) INH BID 08/17/202018 Inactive Medication Administered No Medication Administered data Procedures Procedure Codes Date Urinalysis, dip stick CPT-4: 97680 06/21/2019 Tobacco Assessment/Screening CPT-4: TCA Patient Health Questionnaire CPT-4: DPHQ AHA/REBECCA Classification Assessment CPT-4: DAHA 04/25/2019 Controlled Substance Report CPT-4: CTRSU 04/03 Urinalysis, dip stick CPT-4: 22565 03/28/2019 Urinalysis, dip stick CPT-4: 53288 03/28/2019 [id number] CPT-4: 30253 Unknown Gynecology Referral SNOMED CT: 580799518 CPT-4: R14 Unknown Reason For Visit No Reason For Visit data Plan of Care Planned Activity Notes Codes Status Date Referral: Pending Gynecology Referral Information Referral Processed Referral: Pending Pulmonolog y Referral Information Referral Processed Referral: Pending Psychiatry Referral Information Referral Initiated Referral: Pending Respirator y Services Referral Information Referral Initiated Referral: Pending Ophthalmol ogy Referral Information Referral Initiated [facility]: [address] [place] [address] [employer] placed a call out to the patient to notify her that it has been recommended that she be seen by 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 Patient agreed to be seen, does not have a provider of choice and no transportation issues. [employer] faxed referral and clinical notes to [facility] in [place], [place] near the patient's home. Patient to [...] seen and prefers a provider in the [place] or [facility]. [employer] placed a call out to everyone listed in the area and the only location that was able to accept the patient's insurance was [place] [address] [place] [address] and spoke with Maylin. Maylin asked that the patient's referral, face sheet and visit notes be faxed to . [employer] faxed over requested documents. Patient appointment confirmation letter generated and mailed to her home address. Patient to call to schedule an appointment. Processed Referral: [facility] WPtel: [address] [facility] [address] [place], [place] [id number] Patient notified that it has been advised that she be seen by Neurology. Patient agreed to be seen and prefers to be seen by a provider in the [place], [place] area. Patient denies any concerns with transportation, and prefers to schedule her own appointment. [employer] placed a call out to [facility] and spoke with Neeraj [...]
--- OUTSIDE RECORDS SUMMARY | 2019-08-16 20:00 | XMS_ITS | CCD ---
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 Strip Tank Tender Name Role Phone Palomo KING, Anna Primary Care Provider Unav ailable Unavailable Chronic Care Management Unavaila ble Summary Purpose DataExchange Insurance Providers Payer name Policy type / Coverage type Covered alliance party ID Effective Begin Date Effective End Date [employer] MARIA ESTHER [id number] Unknown Unknown Family history Mother Diagnosis Age [...] Unknown Disability 05/31/[address]: 328240462 Has never s moked or chewed tobacco 05/31/[address]: 487817552 Never drinks alco hol 05/31/2018 Has the [...] Start Date Stop Date Status Fill Instructions Alcohol Prep Pads RxNorm: 266234 1 Patch TOP QAM 08/17/202019 Inactive albuterol sulfate 2.5 mg/3 mL (0.083 %) solution for nebulization RxNorm: 946938 1 Vial Inhalation every four hours as needed as needed for dyspnea 08/17/20 19 2019 Inactive 60/box. This refill negates all other refills of this medication. Please do not fill early. Please do not auto refill. Symbicort 160 mcg-4.5 mcg/actuation HFA aerosol inhaler RxNorm: 8347735 2 Puff(s) INH BID 08/17/20 19 No Stop Date Active True Metrix Glucose Test Strip RxNorm: 1 Test Strips Miscellaneous QAM 08/09/20 19 2019 Inactive 100/container Ventolin HFA 90 mcg/actuation aerosol inhaler RxNorm: 613701 2 Puff(s) INH QID 08/09/20 19 2019 Inactive Please do not fill early. Please do not auto refill. This refill negates all other refills of this medication atorvastatin 40 mg tablet RxNorm: 661688 1 Tablet(s) Oral every day 07/04/20 19 2019 Inactive hydrochlorothiazide 12.5 mg tablet RxNorm: 675877 1 Tablet(s) PO QAM 06/26/20 19 2019 Inactive levmetamfetamine 50 mg nasal inhaler RxNorm: 1 Unit(s) NASAL Q3-4H Do not use more than every 3 hours or 8 times/24hours 06/26/20 19 2021 Inactive Please do not auto refill. This refill negates all other refills of this medication Singulair 10 mg tablet RxNorm: 315409 1 Tablet(s) PO daily 06/26/20 19 2019 Inactive This refill negates all other refills of this medication cetirizine 10 mg tablet RxNorm: 8009480 1 Tablet(s) PO daily 06/26/20 19 2019 Inactive This refill negates all other refills of this medication. Please do not auto refill levothyroxine 50 mcg tablet RxNorm: 463169 1 Tablet(s) PO daily 06/26/20 19 2019 Inactive This refill negates all other refills of this medication diclofenac sodium 75 mg tablet,delayed release RxNorm: 107797 1 Tablet(s) PO BID 06/26/20 19 2019 Inactive This refill negates all other refills of this medication ranitidine 150 mg tablet RxNorm: 535873 1 Tablet(s) PO BID 06/26/20 19 2018 Inactive This refill negates all other refills of this medication buspirone 7.5 mg tablet RxNorm: 967453 1 Tablet(s) PO BID 06/26/20 19 2020 Inactive This refill negates all other refills of this medication Calcium 600-D3 Plus (mag-zinc) 600 mg calcium-800 unit-50 mg tablet RxNorm: 1 Tablet(s) PO daily take an additonal tablet for itching. 06/26/20 19 2018 Inactive This refill negates all other refills of this medication Ventolin HFA 90 mcg/actuation aerosol inhaler RxNorm: 691469 2 Puff(s) INH QID 06/26/20 19 2018 Inactive Please do not fill early. Please do not auto refill. This refill negates all other refills of this medication albuterol sulfate 2.5 mg/3 mL (0.083 %) solution for nebulization RxNorm: 631812 1 Vial INH QID 06/26/20 19 2018 Inactive 60/box. This refill negates all other refills of this medication. Please do not fill early. Please do not auto refill. lisinopril 2.5 mg tablet RxNorm: 561696 1 Tablet(s) PO daily 06/21/20 19 2019 Inactive gabapentin 300 mg capsule RxNorm: 072504 1 Capsule(s) PO TID 06/21/20 19 2019 Inactive atorvastatin 20 mg tablet RxNorm: 118673 1 Tablet(s) PO QHS 06/07/202018 Inactive This refill negates all other refills of this medication TRUEplus Lancets 30 gauge RxNorm: 1 Lancets Miscellaneous QAM 05/29/20 19 2018 Inactive 100/box gabapentin 300 mg capsule RxNorm: 474222 1 Capsule(s) PO TID 05/03/20 19 2018 Inactive Flintsmaury Complete (iron) 18 mg iron chewable tablet RxNorm: 1 Tablet(s) PO daily 04/04/202021 Inactive This refill negates all other refills of this medication gabapentin 300 mg capsule RxNorm: 794297 1 Capsule(s) PO TID as needed 02/01/20 19 2018 Inactive True Metrix Glucose Test Strip RxNorm: 1 Test Strips Miscellaneous [facility] 02/01/20 19 2018 Inactive 100/container Alcohol Prep Pads RxNorm: 240546 1 Patch TOP QAM 02/01/20 19 2018 Inactive TRUEplus Lancets 30 gauge RxNorm: 1 Lancets Miscellaneous QAM 02/01/20 19 2018 Inactive 100/box lisinopril 2.5 mg tablet RxNorm: 679472 1 Tablet(s) PO daily 12/28/19 19 2018 Inactive ranitidine 150 mg tablet RxNorm: 692310 1 Tablet(s) PO BID 10/21/19 19 2018 Inactive This refill negates all other refills of this medication albuterol sulfate 2.5 mg/3 mL (0.083 %) solution for nebulization RxNorm: 759871 1 Vial INH QID 10/21/192018 Inactive 60/box. [...] this medication gabapentin 300 mg capsule RxNorm: 553989 1 Capsule(s) PO TID as needed 10/21/192018 Inactive atorvastatin 20 mg tablet RxNorm: 758802 1 Tablet(s) PO QHS 10/21/192018 Inactive This refill negates all other refills of this medication trazodone 50 mg tablet RxNorm: 906574 1 Tablet(s) PO QHS 10/21/192018 Inactive This refill negates all other refills of this medication Ventolin HFA 90 mcg/actuation aerosol inhaler RxNorm: 080905 2 Puff(s) INH QID 10/21/192018 Inactive Please do not fill early. Please do not auto refill. This refill negates all other refills of this medication Calcium 600-D3 Plus 600 mg calcium-800 unit-50 mg tablet RxNorm: 1 Tablet(s) PO daily take an additonal tablet for itching. 10/21/192018 Inactive This refill negates all other refills of this medication Singulair 10 mg tablet RxNorm: 080662 1 Tablet(s) PO daily 10/21/192018 Inactive This refill negates all other refills of this medication buspirone 7.5 mg tablet RxNorm: 766224 1 Tablet(s) PO BID 10/21/192018 Inactive This refill negates all other refills of this medication diclofenac sodium 75 mg tablet,delayed release RxNorm: 714332 1 Tablet(s) PO BID 10/21/19 19 2018 Inactive This refill negates all other refills of this medication hydrochlorothiazide 12.5 mg tablet RxNorm: 378259 1 Tablet(s) PO QAM 10/21/19 19 2018 Inactive metoprolol succinate ER 50 mg tablet,extended release 24 hr RxNorm: 264478 1 Tablet(s) PO daily 10/21/19 19 2018 Inactive This refill negates all other refills of this medication levothyroxine 50 mcg tablet RxNorm: 874018 1 Tablet(s) PO daily 10/21/19 19 2018 Inactive This refill negates all other refills of this medication cetirizine 10 mg tablet RxNorm: 7885881 1 Tablet(s) PO daily 10/21/19 19 2018 Inactive This refill negates all other refills of this medication. Please do not auto refill Flintstones Complete (iron) 18 mg iron chewable tablet RxNorm: 1 Tablet(s) PO daily 10/21/192018 Inactive This refill negates all other refills of this medication buspirone 7.5 mg tablet RxNorm: 478973 1 Tablet(s) PO BID 10/12/192018 Inactive cetirizine 10 mg tablet RxNorm: 8760115 1 Tablet(s) PO daily 09/28/20 18 2018 Inactive Guaiasorb DM 10 mg-100 mg/5 mL oral liquid RxNorm: 893173 10 Milliliter(s) PO As needed every 4 hr 09/24/20 18 2018 Inactive Vicks Vaporub 4.7 %-1.2 %-2.6 % topical ointment RxNorm: 7063985 1 Application TOP TID 09/24/202018 Inactive levmetamfetamine 50 mg nasal inhaler RxNorm: 1 Unit(s) NASAL Q3-4H 09/24/20 18 2017 Inactive sertraline 50 mg tablet RxNorm: 006452 1 Tablet(s) PO daily 09/09/20 18 2018 Inactive Please note dose trazodone 50 mg tablet RxNorm: 702881 1 Tablet(s) PO QHS 09/06/20 18 2018 Inactive sertraline 50 mg tablet RxNorm: 878861 1 Tablet(s) PO daily 09/06/20 18 2017 Inactive amoxicillin 500 mg tablet RxNorm: 409216 1 Tablet(s) PO Q12H 08/31/20 18 2017 Inactive albuterol sulfate 2.5 mg/3 mL (0.083 %) solution for nebulization RxNorm: 377581 1 Vial INH QID 08/10/20 18 2018 Inactive 60/box. Please do not fill early. Please do not auto refill. Prozac 10 mg capsule RxNorm: 168920 1 Capsule(s) PO daily 08/09/20 18 2017 Inactive buspirone 7.5 mg tablet RxNorm: 568124 1 Tablet(s) PO BID 08/09/20 18 2018 Inactive gabapentin 300 mg capsule RxNorm: 768565 1 Capsule(s) PO TID as needed 08/01/20 18 2018 Inactive hydrochlorothiazide 12.5 mg tablet RxNorm: 482938 1 Tablet(s) PO QAM 08/01/20 18 2018 Inactive ranitidine 150 mg tablet RxNorm: 008448 1 Tablet(s) PO BID 08/01/20 18 2018 Inactive Macrobid 100 mg capsule RxNorm: 883214 1 Capsule(s) PO Q12H 06/21/20 18 2017 Inactive Singulair 10 mg tablet RxNorm: 976424 1 Tablet(s) PO daily 06/14/20 18 2018 Inactive Ventolin HFA 90 mcg/actuation aerosol inhaler RxNorm: 3772138 2 Puff(s) INH QID 06/14/20 18 2018 Inactive Singulair 10 mg tablet RxNorm: 932180 1 Tablet(s) PO daily 06/14/20 18 2017 Inactive buspirone 7.5 mg tablet RxNorm: 747772 1 Tablet(s) PO BID 06/14/20 18 2017 Inactive Prozac 10 mg capsule RxNorm: 878731 1 Capsule(s) PO daily 06/14/20 18 2017 Inactive Neilmed Pediatric Sinus Rinse Refill packet RxNorm: 1 Unit Dose NASAL PRN 05/31/20 18 2021 Inactive diclofenac sodium 75 mg tablet,delayed release RxNorm: 375947 1 Tablet(s) PO BID 05/31/20 18 2017 Inactive lisinopril 2.5 mg tablet RxNorm: 936905 1 Tablet(s) PO daily 05/31/20 18 2017 Inactive metoprolol succinate ER 50 mg tablet,extended release 24 hr RxNorm: 419129 1 Tablet(s) PO daily 05/31/20 18 2017 Inactive levothyroxine 50 mcg tablet RxNorm: 240661 1 Tablet(s) PO daily 05/31/20 18 2017 Inactive TRUEplus Lancets 30 gauge RxNorm: 1 Lancets Miscellaneous QAM 05/31/20 18 2017 Inactive 100/box Ventolin HFA 90 mcg/actuation aerosol inhaler RxNorm: 881092 2 Puff(s) INH QID 05/31/20 18 2017 Inactive Aleve 220 mg capsule RxNorm: 9123728 1 Capsule(s) PO BID 05/31/20 18 2018 Inactive ranitidine 150 mg tablet RxNorm: 356378 1 Tablet(s) PO BID 05/31/20 18 2017 Inactive gabapentin 300 mg capsule RxNorm: 164503 1 Capsule(s) PO TID as needed 05/31/20 18 2017 Inactive atorvastatin 20 mg tablet RxNorm: 827310 1 Tablet(s) PO QHS 05/31/20 18 2017 Inactive True Metrix Glucose Test Strip RxNorm: 1 Test Strips Miscellaneous QAM 05/31/20 18 2017 Inactive 50/container Calcium 600-D3 Plus 600 mg calcium-800 unit-50 mg tablet RxNorm: 1 Tablet(s) PO daily take an additonal tablet for itching. 05/31/20 18 2017 Inactive hydrochlorothiazide 12.5 mg tablet RxNorm: 316633 1 Tablet(s) PO QAM 05/31/20 18 2017 Inactive Flnickolas Complete (iron) 18 mg iron chewable tablet RxNorm: 1 Tablet(s) PO daily 05/31/20 18 2017 Inactive True Metrix Glucose Meter RxNorm: miscellaneous 08/17/20 19 2018 Inactive sertraline 50 mg tablet RxNorm: 855770 1 Tablet(s) PO daily 11/28/19 20 2019 Inactive loperamide 2 mg tablet RxNorm: 068071 oral 09/29/20 19 2018 Inactive d-mannose oral powder RxNorm: PO 18 2021 Inactive Symbicort 160 mcg-4.5 mcg/actuation HFA aerosol inhaler RxNorm: 8552013 2 Puff(s) INH BID 08/17/20 19 2018 Inactive Medication Administered No Medication Administered data Procedures Procedure Codes Date Urinalysis, dip stick CPT-4: 09059 06/21/2019 Tobacco Assessment/Screening CPT-4: TCA Patient Health Questionnaire CPT-4: DPHQ AHA/REBECCA Classification Assessment CPT-4: DAHA 04/25/2019 Controlled Substance Report CPT-4: CTRSU 04/03 Urinalysis, dip stick CPT-4: 98264 03/28/2019 Urinalysis, dip stick CPT-4: 74834 03/28/2019 [id number] CPT-4: 05809 Unknown Gynecology Referral SNOMED CT: 148881484 CPT-4: R14 Unknown Reason For Visit No Reason For Visit data Plan of Care Planned Activity Notes Codes Status Date Referral: Pending Gynecology Referral Information Referral Processed Referral: Pending Pulmonolog y Referral Information Referral Processed Referral: Pending Psychiatry Referral Information Referral Initiated Referral: Pending Respirator y Services Referral Information Referral Initiated Referral: Pending Ophthalmol ogy Referral Information Referral Initiated Referral: [facility] WPtel: [address] [place] [address] [place] Supervisor Parking Lot placed a call out to the patient to notify her that it has been recommended that she be seen by 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 Patient agreed to be seen, does not have a provider of choice and no transportation issues. Supervisor Parking Lot faxed referral and clinical notes to [facility] in [place], [place] near the patient's home. Patient to [...] seen and prefers a provider in the [place] or [place] area. Supervisor Parking Lot placed a call out to everyone listed in the area and the only location that was able to accept the patient's insurance was [place] [address] [place] [address] and spoke with Maylin. Maylin asked that the patient's referral, face sheet and visit notes be faxed to . Supervisor Parking Lot faxed over requested documents. Patient appointment confirmation letter generated and mailed to her home address. Patient to call to schedule an appointment. Processed Referral: [facility] WPtel: [address] [place] [address] Patient notified that it has been advised that she be seen by Neurology. Patient agreed to be seen and prefers to be seen by a provider in the [place], [place] area. Patient denies any concerns with transportation, and prefers to schedule her own appointment. Supervisor Parking Lot placed a call out to [facility] and spoke with Neeraj P: who confirmed that their office is able to accept new patients and the patient's insurance. After confirming the providers fax number, engineering technical writer faxed over the patient's referral, [...]
--- OUTSIDE RECORDS SUMMARY | 2019-10-15 20:00 | XMS_ITS | CCD ---
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 Project Manager Finance Name Role Phone Palomo KING, Anna Primary Care Provider Unav ailable Unavailable Chronic Care Management Unavaila ble Summary Purpose DataExchange Insurance Providers Payer name Policy type / Coverage type Covered libertarian ID Effective Begin Date Effective End Date [facility] [id number] Unknown Unknown Family history Mother Diagnosis Age [...] Unknown Disability 05/31/[address]: 730956739 Has never s moked or chewed tobacco 05/31/[address]: 606319410 Never drinks alco hol 05/31/2018 Has the [...] Condition Codes Effective Dates Condition St atus Diarrhea ICD-10: R19.7 ICD-9: 787.91 09/29/2019 Active Chronic kidney disease, unspecified ICD- 10: N18.9 ICD-9: 585.9 06/21/2019 Active Hypertensive heart disease w ith heart failure ICD-10: I11.0 ICD-9: 402.91 04/25/2019 Active Mixed incontinence ICD-10: N39.46 ICD-9: 788.33 05/24/2019 Active Type 2 diabetes mellitus wit hout complications ICD-10: E11.9 ICD-9: 250.00 10/03/2018 Active GERD (gastroesophageal reflu x disease) ICD-10: K21.9 ICD-9: 530.81 09/07/2019 Active Acute upper respiratory infe ction, unspecified ICD-10: J06.9 ICD-9: 465.9 09/04/2019 Active Essential (primary) hypertension ICD-10: I10 ICD-9: 401.9 10/03/2018 Active Hypothyroidism, unspecified ICD-10: E03. 9 ICD-9: 244.9 09/05/2018 Active Hyperlipidemia, unspecified ICD-10: E78. 5 ICD-9: [...] ICD-10: Z12.4 ICD-9: V76.2 04/25/2019 Active Other skilled nursing (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 ICD-10: Z79.899 ICD-9: [...] Headache ICD-10: R51 ICD-9: 784.0 10/03/2018 Active residential (current) use of non-steroidal anti-inflammatories (NSAID) ICD-10: Z79.1 ICD-9: V58.64 06/13/2018 Active Medications Medication Codes Instructions Start Date Stop Date Status Fill Instructions Alcohol Prep Pads RxNorm: 300789 1 Patch TOP QAM 10/16/192020 Inactive loperamide 2 mg tablet RxNorm: 433558 1 Tablet(s) Oral as needed take one tablet after each loose stool not to exceed 8 tablets a day 09/29/202018 Inactive Calcium 600-D3 Plus (mag-zinc) 600 mg calcium-800 unit-50 mg tablet RxNorm: 1 Tablet(s) PO daily take an additonal tablet for itching. 09/22/202021 Inactive This refill negates all other refills of this medication TRUEplus Lancets 30 gauge RxNorm: 1 Lancets Miscellaneous QAM 09/22/202019 Inactive 100/box fenugreek seed extract 500 mg capsule RxNorm: 1 Capsule(s) Oral three times a day 09/19/20 19 2019 Inactive hydrochlorothiazide 25 mg tablet RxNorm: 161593 1 Tablet(s) Oral every day 09/19/202019 Inactive Sudafed 12 Hour 120 mg tablet,extended release RxNorm: 5715501 1 Tablet(s) Oral every 12 hours as needed 09/11/20 19 2018 Inactive omeprazole 20 mg capsule,delayed release RxNorm: 670532 1 Capsule(s) Oral every day 09/07/20 19 2019 Inactive Sudafed 12 Hour 120 mg tablet,extended release RxNorm: 2992914 1 Tablet(s) Oral every 12 hours as needed 09/04/20 19 2018 Inactive pantoprazole 40 mg tablet,delayed release RxNorm: 268824 1 Tablet(s) Oral every day 08/24/20 19 2018 Inactive discontinue any other H2Blkr. and PPI albuterol sulfate 2.5 mg/3 mL (0.083 %) solution for nebulization RxNorm: 055690 1 Vial Inhalation every four hours as needed as needed for dyspnea 08/17/20 19 2019 Inactive 60/box. This refill negates all other refills of this medication. Please do not fill early. Please do not auto refill. Symbicort 160 mcg-4.5 mcg/actuation HFA aerosol inhaler RxNorm: 1042510 2 Puff(s) INH BID 08/17/20 19 No Stop Date Active Alcohol Prep Pads RxNorm: 345096 1 Patch TOP QAM 08/17/20 19 2019 Inactive True Metrix Glucose Test Strip RxNorm: 1 Test Strips Miscellaneous QAM 08/09/20 19 2019 Inactive 100/container Ventolin HFA 90 mcg/actuation aerosol inhaler RxNorm: 702598 2 Puff(s) INH QID 08/09/20 19 2019 Inactive Please do not fill early. Please do not auto refill. This refill negates all other refills of this medication atorvastatin 40 mg tablet RxNorm: 915533 1 Tablet(s) Oral every day 07/04/20 19 2019 Inactive levmetamfetamine 50 mg nasal inhaler RxNorm: 1 Unit(s) NASAL Q3-4H Do not use more than every 3 hours or 8 times/24hours 06/26/20 19 03/01/ 2022 Inactive Please do not auto refill. This refill negates all other refills of this medication Singulair 10 mg tablet RxNorm: 793554 1 Tablet(s) PO daily 06/26/20 19 2019 Inactive This refill negates all other refills of this medication cetirizine 10 mg tablet RxNorm: 9537914 1 Tablet(s) PO daily 06/26/20 19 2019 Inactive This refill negates all other refills of this medication. Please do not auto refill levothyroxine 50 mcg tablet RxNorm: 765657 1 Tablet(s) PO daily 06/26/20 19 2019 Inactive This refill negates all other refills of this medication diclofenac sodium 75 mg tablet,delayed release RxNorm: 223840 1 Tablet(s) PO BID 06/26/20 19 2019 Inactive This refill negates all other refills of this medication buspirone 7.5 mg tablet RxNorm: 562611 1 Tablet(s) PO BID 06/26/20 19 2020 Inactive This refill negates all other refills of this medication hydrochlorothiazide 12.5 mg tablet RxNorm: 360129 1 Tablet(s) PO QAM 06/26/20 19 2019 Inactive Ventolin HFA 90 mcg/actuation aerosol inhaler RxNorm: 411560 2 Puff(s) INH QID 06/26/20 19 2018 Inactive Please do not fill early. Please do not auto refill. This refill negates all other refills of this medication ranitidine 150 mg tablet RxNorm: 656978 1 Tablet(s) PO BID 06/26/20 19 2018 Inactive This refill negates all other refills of this medication Calcium 600-D3 Plus (mag-zinc) 600 mg calcium-800 unit-50 mg tablet RxNorm: 1 Tablet(s) PO daily take an additonal tablet for itching. 06/26/20 19 2018 Inactive This refill negates all other refills of this medication albuterol sulfate 2.5 mg/3 mL (0.083 %) solution for nebulization RxNorm: 606652 1 Vial INH QID 06/26/20 19 2018 Inactive 60/box. This refill negates all other refills of this medication. Please do not fill early. Please do not auto refill. lisinopril 2.5 mg tablet RxNorm: 866259 1 Tablet(s) PO daily 06/21/20 19 2019 Inactive gabapentin 300 mg capsule RxNorm: 463974 1 Capsule(s) PO TID 06/21/20 19 2019 Inactive atorvastatin 20 mg tablet RxNorm: 105573 1 Tablet(s) PO QHS 06/07/20 19 2018 Inactive This refill negates all other refills of this medication TRUEplus Lancets 30 gauge RxNorm: 1 Lancets Miscellaneous QAM 05/29/202018 Inactive 100/box gabapentin 300 mg capsule RxNorm: 535926 1 Capsule(s) PO TID 05/03/20 19 2018 Inactive Flintstones Complete (iron) 18 mg iron chewable tablet RxNorm: 1 Tablet(s) PO daily 04/04/20 19 2021 Inactive This refill negates all other refills of this medication gabapentin 300 mg capsule RxNorm: 829306 1 Capsule(s) PO TID as needed 02/01/20 19 2018 Inactive True Metrix Glucose Test Strip RxNorm: 1 Test Strips Miscellaneous QA 02/01/20 19 2018 Inactive 100/container Alcohol Prep Pads RxNorm: 711047 1 Patch TOP QA 02/01/202018 Inactive TRUEplus Lancets 30 gauge RxNorm: 1 Lancets Miscellaneous QA 02/01/20 19 2018 Inactive 100/box lisinopril 2.5 mg tablet RxNorm: 625237 1 Tablet(s) PO daily 12/28/19 19 2018 Inactive ranitidine 150 mg tablet RxNorm: 911428 1 Tablet(s) PO BID 10/21/19 19 2018 Inactive This refill negates all other refills of this medication albuterol sulfate 2.5 mg/3 mL (0.083 %) solution for nebulization RxNorm: 643904 1 Vial INH QID 10/21/19 19 2018 [...] this medication gabapentin 300 mg capsule RxNorm: 682854 1 Capsule(s) PO TID as needed 10/21/19 19 2018 Inactive atorvastatin 20 mg tablet RxNorm: 501619 1 Tablet(s) PO QHS 10/21/192018 Inactive This refill negates all other refills of this medication trazodone 50 mg tablet RxNorm: 921147 1 Tablet(s) PO QHS 10/21/19 19 2018 Inactive This refill negates all other refills of this medication Ventolin HFA 90 mcg/actuation aerosol inhaler RxNorm: 137982 2 Puff(s) INH QID 10/21/19 19 2018 Inactive Please do not fill early. Please do not auto refill. This refill negates all other refills of this medication Calcium 600-D3 Plus 600 mg calcium-800 unit-50 mg tablet RxNorm: 1 Tablet(s) PO daily take an additonal tablet for itching. 10/21/192018 Inactive This refill negates all other refills of this medication Singulair 10 mg tablet RxNorm: 936456 1 Tablet(s) PO daily 10/21/192018 Inactive This refill negates all other refills of this medication buspirone 7.5 mg tablet RxNorm: 557843 1 Tablet(s) PO BID 10/21/192018 Inactive This refill negates all other refills of this medication diclofenac sodium 75 mg tablet,delayed release RxNorm: 139708 1 Tablet(s) PO BID 10/21/19 19 2018 Inactive This refill negates all other refills of this medication hydrochlorothiazide 12.5 mg tablet RxNorm: 932951 1 Tablet(s) PO QAM 10/21/19 19 2018 Inactive metoprolol succinate ER 50 mg tablet,extended release 24 hr RxNorm: 697378 1 Tablet(s) PO daily 10/21/19 19 2018 Inactive This refill negates all other refills of this medication levothyroxine 50 mcg tablet RxNorm: 706754 1 Tablet(s) PO daily 10/21/19 19 2018 Inactive This refill negates all other refills of this medication cetirizine 10 mg tablet RxNorm: 6602506 1 Tablet(s) PO daily 10/21/19 19 2018 Inactive This refill negates all other refills of this medication. Please do not auto refill Flintstones Complete (iron) 18 mg iron chewable tablet RxNorm: 1 Tablet(s) PO daily 10/21/19 19 2018 Inactive This refill negates all other refills of this medication buspirone 7.5 mg tablet RxNorm: 658527 1 Tablet(s) PO BID 10/12/19 19 2018 Inactive cetirizine 10 mg tablet RxNorm: 8072820 1 Tablet(s) PO daily 09/28/20 18 2018 Inactive Guaiasorb DM 10 mg-100 mg/5 mL oral liquid RxNorm: 386819 10 Milliliter(s) PO As needed every 4 hr 09/24/20 18 2018 Inactive Vicks Vaporub 4.7 %-1.2 %-2.6 % topical ointment RxNorm: 7272764 1 Application TOP TID 09/24/20 18 2018 Inactive levmetamfetamine 50 mg nasal inhaler RxNorm: 1 Unit(s) NASAL Q3-4H 09/24/20 18 2017 Inactive sertraline 50 mg tablet RxNorm: 795750 1 Tablet(s) PO daily 09/09/20 18 2018 Inactive Please note dose trazodone 50 mg tablet RxNorm: 275614 1 Tablet(s) PO QHS 09/06/20 18 2018 Inactive sertraline 50 mg tablet RxNorm: 487547 1 Tablet(s) PO daily 09/06/20 18 2017 Inactive amoxicillin 500 mg tablet RxNorm: 076450 1 Tablet(s) PO Q12H 08/31/20 18 2017 Inactive albuterol sulfate 2.5 mg/3 mL (0.083 %) solution for nebulization RxNorm: 323718 1 Vial INH QID 08/10/20 18 2018 Inactive 60/box. Please do not fill early. Please do not auto refill. Prozac 10 mg capsule RxNorm: 378285 1 Capsule(s) PO daily 08/09/20 18 2017 Inactive buspirone 7.5 mg tablet RxNorm: 756024 1 Tablet(s) PO BID 08/09/20 18 2018 Inactive gabapentin 300 mg capsule RxNorm: 346275 1 Capsule(s) PO TID as needed 08/01/20 18 2018 Inactive hydrochlorothiazide 12.5 mg tablet RxNorm: 282098 1 Tablet(s) PO QAM 08/01/20 18 2018 Inactive ranitidine 150 mg tablet RxNorm: 036160 1 Tablet(s) PO BID 08/01/20 18 2018 Inactive Macrobid 100 mg capsule RxNorm: 556321 1 Capsule(s) PO Q12H 06/21/20 18 2017 Inactive Singulair 10 mg tablet RxNorm: 407578 1 Tablet(s) PO daily 06/14/20 18 2018 Inactive Ventolin HFA 90 mcg/actuation aerosol inhaler RxNorm: 5420423 2 Puff(s) INH QID 06/14/20 18 2018 Inactive Singulair 10 mg tablet RxNorm: 161000 1 Tablet(s) PO daily 06/14/20 18 2017 Inactive buspirone 7.5 mg tablet RxNorm: 301068 1 Tablet(s) PO BID 06/14/20 18 2017 Inactive Prozac 10 mg capsule RxNorm: 560552 1 Capsule(s) PO daily 06/14/20 18 2017 Inactive Neilmed Pediatric Sinus Rinse Refill packet RxNorm: 1 Unit Dose NASAL PRN 05/31/20 18 2021 Inactive diclofenac sodium 75 mg tablet,delayed release RxNorm: 505079 1 Tablet(s) PO BID 05/31/20 18 2017 Inactive lisinopril 2.5 mg tablet RxNorm: 067756 1 Tablet(s) PO daily 05/31/20 18 2017 Inactive metoprolol succinate ER 50 mg tablet,extended release 24 hr RxNorm: 779512 1 Tablet(s) PO daily 05/31/20 18 2017 Inactive levothyroxine 50 mcg tablet RxNorm: 187709 1 Tablet(s) PO daily 05/31/20 18 2017 Inactive TRUEplus Lancets 30 gauge RxNorm: 1 Lancets Miscellaneous QAM 05/31/20 18 2017 Inactive 100/box Ventolin HFA 90 mcg/actuation aerosol inhaler RxNorm: 648877 2 Puff(s) INH QID 05/31/20 18 2017 Inactive Aleve 220 mg capsule RxNorm: 6212820 1 Capsule(s) PO BID 05/31/20 18 2018 Inactive ranitidine 150 mg tablet RxNorm: 814760 1 Tablet(s) PO BID 05/31/20 18 2017 Inactive gabapentin 300 mg capsule RxNorm: 519310 1 Capsule(s) PO TID as needed 05/31/20 18 2017 Inactive atorvastatin 20 mg tablet RxNorm: 332979 1 Tablet(s) PO QHS 05/31/20 18 2017 Inactive True Metrix Glucose Test Strip RxNorm: 1 Test Strips Miscellaneous QAM 05/31/20 18 2017 Inactive 50/container Calcium 600-D3 Plus 600 mg calcium-800 unit-50 mg tablet RxNorm: 1 Tablet(s) PO daily take an additonal tablet for itching. 05/31/20 18 2017 Inactive hydrochlorothiazide 12.5 mg tablet RxNorm: 559931 1 Tablet(s) PO QAM 05/31/20 18 2017 Inactive Flintstones Complete (iron) 18 mg iron chewable tablet RxNorm: 1 Tablet(s) PO daily 05/31/20 18 2017 Inactive sertraline 50 mg tablet RxNorm: 181057 1 Tablet(s) PO daily 11/28/19 20 2019 Inactive d-mannose oral powder RxNorm: PO 18 2021 Inactive True Metrix Glucose Meter RxNorm: miscellaneous 08/17/20 19 2018 Inactive loperamide 2 mg tablet RxNorm: 303628 oral 09/29/202018 Inactive Symbicort 160 mcg-4.5 mcg/actuation HFA aerosol inhaler RxNorm: 3457789 2 Puff(s) INH BID 08/17/202018 Inactive Medication Administered No Medication Administered data Procedures Procedure Codes Date Fall Risk Assessment SNOMED CT: 23641561 4 CPT-4: DFRA 09/19/2019 Functional Assessment CPT-4: DFA 09/19/2019 Urinalysis, dip stick CPT-4: 72305 06/21/2019 Tobacco Assessment/Screening CPT-4: TCA Patient Health Questionnaire CPT-4: DPHQ AHA/REBECCA Classification Assessment CPT-4: DAHA 04/25/2019 Controlled Substance Report CPT-4: CTRSU 04/03 Urinalysis, dip stick CPT-4: 91993 03/28/2019 Urinalysis, dip stick CPT-4: 61327 03/28/2019 [id number] CPT-4: 82705 Unknown Gynecology Referral SNOMED CT: 270547723 CPT-4: R14 Unknown Reason For Visit No [...] Referral [facility]iated [facility] WPtel: [address] [address] [place] Charm Filter Operator Helper placed a call out to the patient to notify her that it has been recommended that she be seen by 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 Patient agreed to be seen, does not have a provider of choice and no transportation issues. Charm Filter Operator Helper faxed referral and clinical notes to [facility] in [place], [place] near the patient's home. Patient to [...] seen and prefers a provider in the [place] or [place] area. Charm Filter Operator Helper placed a call out to everyone listed in the area and the only location that was able to accept the patient's insurance was [address] [address] and spoke with Maylin. Maylin asked that the patient's referral, face sheet and visit notes be faxed to . Charm Filter Operator Helper faxed over requested documents. Patient appointment confirmation letter generated and mailed to her home address. Patient to call to schedule an appointment. Processed [facility] WPtel: [address] [place] [address] Patient notified that it has been advised that she be seen by Neurology. Patient agreed to be seen and prefers to be seen by a provider in the [place], [place] area. Patient denies any concerns with transportation, and prefers to schedule her own appointment. Charm Filter Operator Helper placed [facility] and spoke with Neeraj P: who confirmed that their office is able to accept new patients and the patient's insurance. After confirming the providers fax number, narrative writer faxed over the patient's referral, and [...]
--- OUTSIDE RECORDS SUMMARY | 2019-12-28 20:00 | XMS_ITS | CCD ---
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 Oracle Bpm Consultant Name Role Phone Palomo KING, Anna Primary Care Provider Unav ailable Unavailable Chronic Care Management Unavaila ble Summary Purpose DataExchange Insurance Providers Payer name Policy type / Coverage type Covered republican ID Effective Begin Date Effective End Date [employer] [facility] [id number] Unknown Unknown Family history Mother Diagnosis Age [...] Unknown Disability 05/31/[address]: 224812092 Has never s moked or chewed tobacco 05/31/[address]: 115576878 Never drinks alco hol 05/31/2018 Has the [...] Condition Codes Effective Dates Condition [facility] [place] eye ICD-10: H10.029 ICD-9: 372.03 12/29/2019 Active Fecal incontinence ICD-10: R15.9 ICD-9: 787.60 12/15/2019 Active Mixed incontinence ICD-10: N39.46 ICD-9: 788.33 05/24/2019 Active Diarrhea ICD-10: R19.7 ICD-9: 787.91 09/29/2019 Active Adjustment disorder with mix ed anxiety and depressed mood ICD-10: F43.23 ICD-9: 309.28 09/05/2018 Active Adult BMI 50.0-59.9 kg/sq m ICD-10: Z68. 43 ICD-9: V85.43 05/30/2018 Active Hypertensive heart disease w ith heart failure ICD-10: I11.0 ICD-9: 402.91 04/25/2019 Active Type 2 diabetes mellitus wit h peripheral neuropathy ICD-10: E11.42 ICD-9: 250.60 11/28/2019 Active Type 2 diabetes mellitus wit hout complications ICD-10: E11.9 ICD-9: 250.00 10/03/2018 Active Sinusitis ICD-10: J32.9 ICD-9: 473.9 11/07/2019 Active Asthma ICD-10: J45.909 ICD-9: 493.90 08/08/2018 Active Essential (primary) hypertension ICD-10: I10 ICD-9: 401.9 10/03/2018 Active Obstructive sleep apnea (chio lt) (pediatric) ICD-10: G47.33 ICD-9: 327.23 06/21/2019 Active Chronic kidney disease, unspecified ICD- 10: N18.9 ICD-9: 585.9 06/21/2019 Active GERD (gastroesophageal reflu x disease) ICD-10: K21.9 ICD-9: 530.81 09/07/2019 Active Acute upper respiratory infe ction, unspecified ICD-10: J06.9 ICD-9: 465.9 09/04/2019 Active Hypothyroidism, unspecified ICD-10: E03. 9 ICD-9: 244.9 09/05/2018 Active Hyperlipidemia, unspecified ICD-10: E78. 5 ICD-9: 272.4 05/30/2018 Active Apnea, not elsewhere classified ICD-10: R06.81 ICD-9: 786.03 01/31/2019 Active Encounter for immunization ICD-10: Z23 ICD-9: V03.9 04/25/2019 Active Encounter for screening, unspecified ICD -10: Z13.9 ICD-9: V82.9 09/05/2018 Active Polyneuropathy, unspecified ICD-10: G62. 9 ICD-9: 356.9 05/30/2018 Active Patient Not Seen ICD-10: UXZ.01 ICD-9: XZ0.1 04/27/2019 Active Encounter for screening for malignant neoplasm of cervix ICD-10: Z12.4 ICD-9: V76.2 04/25/2019 Active Other assisted (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 ICD-10: Z79.899 ICD-9: V58.69 04/25/2019 Active Chest pain, unspecified ICD-10: R07.9 ICD-9: [...] unspecified ICD-10: R60.9 ICD-9: 782.3 07/11/2018 Active Headache ICD-10: R51 ICD-9: 784.0 10/03/2018 Active medical terminologist (current) use of non-steroidal anti-inflammatories (NSAID) ICD-10: Z79.1 ICD-9: V58.64 06/13/2018 Active Medications Medication Codes Instructions Start Date Stop Date Status Fill Instructions gentamicin 0.3 % eye drops RxNorm: 005823 1 Drop(s) ophthalmic (eye) four times a day 12/29/19 20 2019 Inactive gentamicin 0.3 % eye drops RxNorm: 756718 1 Drop(s) ophthalmic (eye) four times a day 12/29/19 20 2019 Inactive gentamicin 0.3 % eye drops RxNorm: 899407 1 Drop(s) ophthalmic (eye) four times a day 12/29/19 20 2019 Inactive hydrochlorothiazide 25 mg tablet RxNorm: 673881 1 Tablet(s) Oral every day 12/21/19 20 2019 Inactive Sudafed 12 Hour 120 mg tablet,extended release RxNorm: 4335567 TAKE (1) TABLET BY MOUTH EVERY 12 HOURS NEEDED 12/21/19 20 2019 Inactive loperamide 2 mg tablet RxNorm: 745875 1 Tablet(s) Oral as needed take one tablet after each loose stool, maximum of 8 tablets in 24 hours 12/11/19 20 2019 Inactive loperamide 2 mg tablet RxNorm: 755772 1 Tablet(s) Oral as needed take one tablet after each loose stool, maximum of 8 tablets in 24 hours 12/11/19 20 2019 Inactive atorvastatin 40 mg tablet RxNorm: 422460 1 Tablet(s) Oral every day 11/29/19 20 2020 Inactive quetiapine 100 mg tablet RxNorm: 516323 1 Tablet(s) Oral every night at bedtime 11/28/19 20 2019 Inactive sertraline 100 mg tablet RxNorm: 437438 1 Tablet(s) Oral 11/28/19 20 2019 Inactive omeprazole 20 mg capsule,delayed release RxNorm: 472914 1 Capsule(s) Oral every day 11/20/19 20 2019 Inactive amoxicillin 250 mg capsule RxNorm: 197621 1 Capsule(s) Oral three times a day 11/07/19 20 2019 Inactive multivitamin with iron-mineral tablet RxNorm: 1 Tablet(s) Oral every day 10/29/19 20 2021 Inactive cetirizine 10 mg tablet RxNorm: 2301303 1 Tablet(s) PO daily 10/20/19 20 2019 Inactive This refill negates all other refills of this medication. Please do not auto refill Singulair 10 mg tablet RxNorm: 848900 1 Tablet(s) PO daily 10/20/19 20 2019 Inactive This refill negates all other refills of this medication gabapentin 300 mg capsule RxNorm: 069327 1 Capsule(s) PO TID 10/20/19 20 2019 Inactive lisinopril 2.5 mg tablet RxNorm: 765581 1 Tablet(s) PO daily 10/20/19 2019 Inactive levothyroxine 50 mcg tablet RxNorm: 680104 1 Tablet(s) PO daily 10/20/19 20 2019 Inactive This refill negates all other refills of this medication fenugreek seed extract 500 mg capsule RxNorm: 1 Capsule(s) Oral three times a day 10/17/19 20 2021 Inactive hydrochlorothiazide 25 mg tablet RxNorm: 441364 1 Tablet(s) Oral every day 10/17/19 20 2019 Inactive Alcohol Prep Pads RxNorm: 131936 1 Patch TOP QAM 10/16/19 20 2020 Inactive loperamide 2 mg tablet RxNorm: 923761 1 Tablet(s) Oral as needed take one [...] 1 Capsule(s) Oral three times a day 09/19/202019 Inactive hydrochlorothiazide 25 mg tablet RxNorm: 633459 1 Tablet(s) Oral every day 09/19/202019 Inactive Sudafed 12 Hour 120 mg tablet,extended release RxNorm: 7274360 1 Tablet(s) Oral every 12 hours as needed 09/11/20 19 2018 Inactive omeprazole 20 mg capsule,delayed release RxNorm: 471542 1 Capsule(s) Oral every day 09/07/20 19 2019 Inactive Sudafed 12 Hour 120 mg tablet,extended release RxNorm: 7633381 1 Tablet(s) Oral every 12 hours as needed 09/04/20 19 2018 Inactive pantoprazole 40 mg tablet,delayed release RxNorm: 310875 1 Tablet(s) Oral every day 08/24/20 19 2018 Inactive discontinue any other H2Blkr. and PPI albuterol sulfate 2.5 mg/3 mL (0.083 %) solution for nebulization RxNorm: 417656 1 Vial Inhalation every four hours as needed as needed for dyspnea 08/17/20 19 2019 Inactive 60/box. This refill negates all other refills of this medication. Please do not fill early. Please do not auto refill. Symbicort 160 mcg-4.5 mcg/actuation HFA aerosol inhaler RxNorm: 3722121 2 Puff(s) INH BID 08/17/20 No Stop Date Active Alcohol Prep Pads RxNorm: 948874 1 Patch TOP QAM 08/17/20 19 2019 Inactive True Metrix Glucose Test Strip RxNorm: 1 Test Strips Miscellaneous QAM 08/09/20 19 2019 Inactive 100/container Ventolin HFA 90 mcg/actuation aerosol inhaler RxNorm: 312997 2 Puff(s) INH QID 08/09/20 19 2019 Inactive Please do not fill early. Please do not auto refill. This refill negates all other refills of this medication atorvastatin 40 mg tablet RxNorm: 990840 1 Tablet(s) Oral every day 07/04/20 19 2019 Inactive levmetamfetamine 50 mg nasal inhaler RxNorm: 1 Unit(s) NASAL Q3-4H Do not use more than every 3 hours or 8 times/24hours 06/26/20 19 2021 Inactive Please do not auto refill. This refill negates all other refills of this medication diclofenac sodium 75 mg tablet,delayed release RxNorm: 610964 1 Tablet(s) PO BID 06/26/20 19 2019 Inactive This refill negates all other refills of this medication buspirone 7.5 mg tablet RxNorm: 946364 1 Tablet(s) PO BID 06/26/20 19 2020 Inactive This refill negates all other refills of this medication hydrochlorothiazide 12.5 mg tablet RxNorm: 346726 1 Tablet(s) PO QAM 06/26/20 19 2019 Inactive Ventolin HFA 90 mcg/actuation aerosol inhaler RxNorm: 576242 2 Puff(s) INH QID 06/26/20 19 2018 Inactive Please do not fill early. Please do not auto refill. This refill negates all other refills of this medication Singulair 10 mg tablet RxNorm: 043330 1 Tablet(s) PO daily 06/26/20 19 2019 Inactive This refill negates all other refills of this medication cetirizine 10 mg tablet RxNorm: 7518881 1 Tablet(s) PO daily 06/26/20 19 2019 Inactive This refill negates all other refills of this medication. Please do not auto refill levothyroxine 50 mcg tablet RxNorm: 876153 1 Tablet(s) PO daily 06/26/20 19 2019 Inactive This refill negates all other refills of this medication ranitidine 150 mg tablet RxNorm: 050947 1 Tablet(s) PO BID 06/26/20 19 2018 Inactive This refill negates all other refills of this medication Calcium 600-D3 Plus (mag-zinc) 600 mg calcium-800 unit-50 mg tablet RxNorm: 1 Tablet(s) PO daily take an additonal tablet for itching. 06/26/202018 Inactive This refill negates all other refills of this medication albuterol sulfate 2.5 mg/3 mL (0.083 %) solution for nebulization RxNorm: 233663 1 Vial INH QID 06/26/20 19 2018 Inactive 60/box. This refill negates all other refills of this medication. Please do not fill early. Please do not auto refill. lisinopril 2.5 mg tablet RxNorm: 156935 1 Tablet(s) PO daily 06/21/20 19 2019 Inactive gabapentin 300 mg capsule RxNorm: 093160 1 Capsule(s) PO TID 06/21/20 19 2019 Inactive atorvastatin 20 mg tablet RxNorm: 298353 1 Tablet(s) PO QHS 06/07/20 19 2018 Inactive This refill negates all other refills of this medication TRUEplus Lancets 30 gauge RxNorm: 1 Lancets Miscellaneous QAM 05/29/20 19 2018 Inactive 100/box gabapentin 300 mg capsule RxNorm: 041258 1 Capsule(s) PO TID 05/03/20 19 2018 Inactive César Complete (iron) 18 mg iron chewable tablet RxNorm: 1 Tablet(s) PO daily 04/04/202021 Inactive This refill negates all other refills of this medication gabapentin 300 mg capsule RxNorm: 984703 1 Capsule(s) PO TID as needed 02/01/20 19 2018 Inactive True Metrix Glucose Test Strip RxNorm: 1 [facility] Strips [facility] 02/01/20 19 2018 Inactive 100/container Alcohol Prep Pads RxNorm: 909616 1 Patch TOP QAM 02/01/20 19 2018 Inactive TRUEplus Lancets 30 gauge RxNorm: 1 Lancets Miscellaneous QAM 02/01/20 19 2018 Inactive 100/box lisinopril 2.5 mg tablet RxNorm: 519941 1 Tablet(s) PO daily 12/28/19 19 2018 Inactive ranitidine 150 mg tablet RxNorm: 179365 1 Tablet(s) PO BID 10/21/192018 Inactive This refill negates all other refills of this medication albuterol sulfate 2.5 mg/3 mL (0.083 %) solution for nebulization RxNorm: 973810 1 Vial INH QID 10/21/192018 Inactive 60/box. [...] this medication gabapentin 300 mg capsule RxNorm: 963522 1 Capsule(s) PO TID as needed 10/21/192018 Inactive atorvastatin 20 mg tablet RxNorm: 902707 1 Tablet(s) PO QHS 10/21/19 19 2018 Inactive This refill negates all other refills of this medication trazodone 50 mg tablet RxNorm: 082620 1 Tablet(s) PO QHS 10/21/19 19 2018 Inactive This refill negates all other refills of this medication Ventolin HFA 90 mcg/actuation aerosol inhaler RxNorm: 474722 2 Puff(s) INH QID 10/21/192018 Inactive Please do not fill early. Please do not auto refill. This refill negates all other refills of this medication Calcium 600-D3 Plus 600 mg calcium-800 unit-50 mg tablet RxNorm: 1 Tablet(s) PO daily take an additonal tablet for itching. 10/21/192018 Inactive This refill negates all other refills of this medication Singulair 10 mg tablet RxNorm: 748419 1 Tablet(s) PO daily 10/21/192018 Inactive This refill negates all other refills of this medication buspirone 7.5 mg tablet RxNorm: 386356 1 Tablet(s) PO BID 10/21/192018 Inactive This refill negates all other refills of this medication diclofenac sodium 75 mg tablet,delayed release RxNorm: 021468 1 Tablet(s) PO BID 10/21/19 19 2018 Inactive This refill negates all other refills of this medication hydrochlorothiazide 12.5 mg tablet RxNorm: 789190 1 Tablet(s) PO QAM 10/21/192018 Inactive metoprolol succinate ER 50 mg tablet,extended release 24 hr RxNorm: 510942 1 Tablet(s) PO daily 10/21/192018 Inactive This refill negates all other refills of this medication levothyroxine 50 mcg tablet RxNorm: 358991 1 Tablet(s) PO daily 10/21/19 19 2018 Inactive This refill negates all other refills of this medication cetirizine 10 mg tablet RxNorm: 8668850 1 Tablet(s) PO daily 10/21/1917/ 2019 Inactive This refill negates all other refills of this medication. Please do not auto refill Flintstones Complete (iron) 18 mg iron chewable tablet RxNorm: 1 Tablet(s) PO daily 10/21/19 19 2018 Inactive This refill negates all other refills of this medication buspirone 7.5 mg tablet RxNorm: 535212 1 Tablet(s) PO BID 10/12/19 19 2018 Inactive cetirizine 10 mg tablet RxNorm: 0608424 1 Tablet(s) PO daily 09/28/20 18 2018 Inactive Guaiasorb DM 10 mg-100 mg/5 mL oral liquid RxNorm: 448959 10 Milliliter(s) PO As needed every 4 hr 09/24/20 18 2018 Inactive Vicks Vaporub 4.7 %-1.2 %-2.6 % topical ointment RxNorm: 5277908 1 Application TOP TID 09/24/20 18 2018 Inactive levmetamfetamine 50 mg nasal inhaler RxNorm: 1 Unit(s) NASAL Q3-4H 09/24/20 18 2017 Inactive sertraline 50 mg tablet RxNorm: 394972 1 Tablet(s) PO daily 09/09/20 18 2018 Inactive Please note dose trazodone 50 mg tablet RxNorm: 435159 1 Tablet(s) PO QHS 09/06/20 18 2018 Inactive sertraline 50 mg tablet RxNorm: 016908 1 Tablet(s) PO daily 09/06/20 18 2017 Inactive amoxicillin 500 mg tablet RxNorm: 135650 1 Tablet(s) PO Q12H 08/31/20 18 2017 Inactive albuterol sulfate 2.5 mg/3 mL (0.083 %) solution for nebulization RxNorm: 464859 1 Vial INH QID 08/10/20 18 2018 Inactive 60/box. Please do not fill early. Please do not auto refill. Prozac 10 mg capsule RxNorm: 203397 1 Capsule(s) PO daily 08/09/20 18 2017 Inactive buspirone 7.5 mg tablet RxNorm: 980221 1 Tablet(s) PO BID 08/09/20 18 2018 Inactive gabapentin 300 mg capsule RxNorm: 118132 1 Capsule(s) PO TID as needed 08/01/20 18 2018 Inactive hydrochlorothiazide 12.5 mg tablet RxNorm: 985655 1 Tablet(s) PO QAM 08/01/20 18 2018 Inactive ranitidine 150 mg tablet RxNorm: 795147 1 Tablet(s) PO BID 08/01/20 18 2018 Inactive Macrobid 100 mg capsule RxNorm: 905263 1 Capsule(s) PO Q12H 06/21/20 18 2017 Inactive Singulair 10 mg tablet RxNorm: 156239 1 Tablet(s) PO daily 06/14/20 18 2018 Inactive Ventolin HFA 90 mcg/actuation aerosol inhaler RxNorm: 6815757 2 Puff(s) INH QID 06/14/20 18 2018 Inactive Singulair 10 mg tablet RxNorm: 476864 1 Tablet(s) PO daily 06/14/20 18 2017 Inactive buspirone 7.5 mg tablet RxNorm: 482151 1 Tablet(s) PO BID 06/14/20 18 2017 Inactive Prozac 10 mg capsule RxNorm: 918853 1 Capsule(s) PO daily 06/14/20 18 2017 Inactive Neilmed Pediatric Sinus Rinse Refill packet RxNorm: 1 Unit Dose NASAL PRN 05/31/20 18 2021 Inactive diclofenac sodium 75 mg tablet,delayed release RxNorm: 940822 1 Tablet(s) PO BID 05/31/20 18 2017 Inactive lisinopril 2.5 mg tablet RxNorm: 911688 1 Tablet(s) PO daily 05/31/20 18 2017 Inactive metoprolol succinate ER 50 mg tablet,extended release 24 hr RxNorm: 430830 1 Tablet(s) PO daily 05/31/20 18 2017 Inactive levothyroxine 50 mcg tablet RxNorm: 749189 1 Tablet(s) PO daily 05/31/20 18 2017 Inactive TRUEplus Lancets 30 gauge RxNorm: 1 Lancets Miscellaneous QAM 05/31/20 18 2017 Inactive 100/box Ventolin HFA 90 mcg/actuation aerosol inhaler RxNorm: 184774 2 Puff(s) INH QID 05/31/20 18 2017 Inactive Aleve 220 mg capsule RxNorm: 4131885 1 Capsule(s) PO BID 05/31/20 18 2018 Inactive ranitidine 150 mg tablet RxNorm: 353610 1 Tablet(s) PO BID 05/31/20 18 2017 Inactive gabapentin 300 mg capsule RxNorm: 162503 1 Capsule(s) PO TID as needed 05/31/20 18 2017 Inactive atorvastatin 20 mg tablet RxNorm: 547103 1 Tablet(s) PO QHS 05/31/20 18 2017 Inactive True Metrix Glucose Test Strip RxNorm: 1 Test Strips Miscellaneous QAM 05/31/20 18 2017 Inactive 50/container Calcium 600-D3 Plus 600 mg calcium-800 unit-50 mg tablet RxNorm: 1 Tablet(s) PO daily take an additonal tablet for itching. 05/31/20 18 2017 Inactive hydrochlorothiazide 12.5 mg tablet RxNorm: 952991 1 Tablet(s) PO QAM 05/31/20 18 2017 Inactive Flintstones Complete (iron) 18 mg iron chewable tablet RxNorm: 1 Tablet(s) PO daily 05/31/20 18 2017 Inactive d-mannose oral powder RxNorm: PO 18 2021 Inactive True Metrix Glucose Meter RxNorm: miscellaneous 08/17/20 19 2018 Inactive sertraline 50 mg tablet RxNorm: 486308 1 Tablet(s) PO daily 11/28/19 20 2019 Inactive loperamide 2 mg tablet RxNorm: 284022 oral 09/29/20 19 2018 Inactive Symbicort 160 mcg-4.5 mcg/actuation HFA aerosol inhaler RxNorm: 1719621 2 Puff(s) INH BID 08/17/20 19 2018 Inactive Medication Administered No Medication Administered data Procedures Procedure Codes Date [place] Assessment CPT-4: DSWA 11/04 Patient Health Questionnaire CPT-4: DPHQ [place] Fany Assessment CPT-4: DSWA 10/03 Hypertension CPT-4: HTN 10/17/2019 Fall Risk Assessment SNOMED CT: 21513199 4 CPT-4: DFRA 09/19/2019 Functional Assessment CPT-4: DFA 09/19/2019 Urinalysis, dip stick CPT-4: 92311 06/21/2019 Tobacco Assessment/Screening CPT-4: TCA Patient Health Questionnaire CPT-4: DPHQ AHA/REBECCA Classification Assessment CPT-4: DAHA 04/25/2019 Controlled Substance Report CPT-4: CTRSU 04/03 Urinalysis, dip stick CPT-4: 27135 03/28/2019 Urinalysis, dip stick CPT-4: 93406 03/28/2019 [id number] CPT-4: 30015 Unknown [id number] CPT-4: 73767 Unknown Gynecology Referral SNOMED CT: 903025763 CPT-4: R14 Unknown Reason For Visit No Reason For Visit data Plan of Care Planned Activity Notes Codes Status Date Referral: Pending Gynecology Referral Information Referral Processed Referral: Pending Pulmonolog y Referral Information Referral Processed Referral: Pending Psychiatry Referral Information Referral Initiated Referral: Pending Respirator y Services Referral Information Referral Initiated Referral: Pending Ophthalmol ogy Referral Information Referral Initiated Referral: [facility] WPtel: [facility] [address] [facility] [place] Desktop Support Consultant placed a call out to the patient to notify her that it has been recommended that she be seen by 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 Patient agreed to be seen, does not have a provider of choice and no transportation issues. Desktop Support Consultant faxed referral and clinical notes to [facility] in [place], [place] near the patient's home. Patient to [...] seen and prefers a provider in the [place] or [place] area. Desktop Support Consultant placed a call out to everyone listed in the area and the only location that was able to accept the patient's insurance was [place] [address] [place] [address] and spoke with Maylin. Maylin asked that the patient's referral, face sheet and visit notes be faxed to . Desktop Support Consultant faxed over requested documents. Patient appointment confirmation letter generated and mailed to her home address. Patient to call to schedule an appointment. Processed Referral: [facility] Neurolog y WPtel: [address] [place] [address] Patient notified that it has been advised that she be seen by Neurology. Patient agreed to be seen and prefers to be seen by a provider in the [place], [place] area. Patient denies any concerns with transportation, and prefers to schedule her own appointment. Desktop Support Consultant placed a call out to [facility] and spoke with Neeraj P: who confirmed that their office is able to accept new patients and the patient's insurance. After confirming the providers fax number, machine sign writer faxed over the patient's referral, and [...]
--- OUTSIDE RECORDS SUMMARY | 2019-12-28 20:00 | XMS_ITS | CCD ---
Author Name Krysta BOWMAN, Dr Mon Address [address] [place] [address] Phone Organization [facility] Phone Care Team Providers Care Paralegal Legal Secretary Name Role Phone Palomo CASINO FLOOR SUPERVISOR, Anna Primary Care Provider Unav ailable Unavailable Chronic Care Management Unavaila ble Summary Purpose DataExchange Insurance Providers Payer name Policy type / Coverage type Covered green party ID Effective Begin Date Effective End Date SUKI MAYO [id number] Unknown Unknown Family history Mother Diagnosis Age [...] Unknown Disability 05/31/[address]: 914897759 Has never s moked or chewed tobacco 05/31/[address]: 369446646 Never drinks alco hol 05/31/2018 Has the [...] Condition Codes Effective Dates Condition [facility] [place] [facility] ICD-10: H10.029 ICD-9: 372.03 12/29/2019 Active [...] ICD-10: Z12.4 ICD-9: V76.2 04/25/2019 Active Other intermediate (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 ICD-10: Z79.899 ICD-9: [...] Headache ICD-10: R51 ICD-9: 784.0 10/03/2018 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 (NSAID) ICD-10: Z79.1 ICD-9: V58.64 06/13/2018 Active Medications Medication Codes Instructions Start Date Stop Date Status Fill Instructions gentamicin 0.3 % eye drops RxNorm: 122934 1 Drop(s) ophthalmic (eye) four times a day 12/29/19 20 2019 Inactive gentamicin 0.3 % eye drops RxNorm: 604106 1 Drop(s) ophthalmic (eye) four times a day 12/29/19 20 2019 Inactive gentamicin 0.3 % eye drops RxNorm: 277070 1 Drop(s) ophthalmic (eye) four times a day 12/29/19 20 2019 Inactive hydrochlorothiazide 25 mg tablet RxNorm: 458568 1 Tablet(s) Oral every day 12/21/19 20 2019 Inactive Sudafed 12 Hour 120 mg tablet,extended release RxNorm: 5646888 TAKE (1) TABLET BY MOUTH EVERY 12 HOURS NEEDED 12/21/19 20 2019 Inactive loperamide 2 mg tablet RxNorm: 728898 1 Tablet(s) Oral as needed take one tablet after each loose stool, maximum of 8 tablets in 24 hours 12/11/19 20 2019 Inactive loperamide 2 mg tablet RxNorm: 352226 1 Tablet(s) Oral as needed take one tablet after each loose stool, maximum of 8 tablets in 24 hours 12/11/19 20 2019 Inactive atorvastatin 40 mg tablet RxNorm: 828521 1 Tablet(s) Oral every day 11/29/19 20 2020 Inactive quetiapine 100 mg tablet RxNorm: 144348 1 Tablet(s) Oral every night at bedtime 11/28/19 20 2019 Inactive sertraline 100 mg tablet RxNorm: 203227 1 Tablet(s) Oral 11/28/19 20 2019 Inactive omeprazole 20 mg capsule,delayed release RxNorm: 831059 1 Capsule(s) Oral every day 11/20/19 20 2019 Inactive amoxicillin 250 mg capsule RxNorm: 307395 1 Capsule(s) Oral three times a day 11/07/19 20 2019 Inactive multivitamin with iron-mineral tablet RxNorm: 1 Tablet(s) Oral every day 10/29/19 20 2021 Inactive cetirizine 10 mg tablet RxNorm: 5078537 1 Tablet(s) PO daily 10/20/19 20 2019 Inactive This refill negates all other refills of this medication. Please do not auto refill Singulair 10 mg tablet RxNorm: 257048 1 Tablet(s) PO daily 10/20/19 20 2019 Inactive This refill negates all other refills of this medication gabapentin 300 mg capsule RxNorm: 597162 1 Capsule(s) PO TID 10/20/19 20 2019 Inactive lisinopril 2.5 mg tablet RxNorm: 605210 1 Tablet(s) PO daily 10/20/19 20 2019 Inactive levothyroxine 50 mcg tablet RxNorm: 679903 1 Tablet(s) PO daily 10/20/19 20 2019 Inactive This refill negates all other refills of this medication fenugreek seed extract 500 mg capsule RxNorm: 1 Capsule(s) Oral three times a day 10/17/19 20 2021 Inactive hydrochlorothiazide 25 mg tablet RxNorm: 509565 1 Tablet(s) Oral every day 10/17/19 20 2019 Inactive Alcohol Prep Pads RxNorm: 782283 1 Patch TOP QAM 10/16/19 20 2020 Inactive loperamide 2 mg tablet RxNorm: 164664 1 Tablet(s) Oral as needed take one [...] 09/19/202019 Inactive hydrochlorothiazide 25 mg tablet RxNorm: 422669 1 Tablet(s) Oral every day 09/19/20 19 2019 Inactive Sudafed 12 Hour 120 mg tablet,extended release RxNorm: 4974631 1 Tablet(s) Oral every 12 hours as needed 09/11/20 19 2018 Inactive omeprazole 20 mg capsule,delayed release RxNorm: 562868 1 Capsule(s) Oral every day 09/07/20 19 2019 Inactive Sudafed 12 Hour 120 mg tablet,extended release RxNorm: 4592525 1 Tablet(s) Oral every 12 hours as needed 09/04/20 19 2018 Inactive pantoprazole 40 mg tablet,delayed release RxNorm: 197472 1 Tablet(s) Oral every day 08/24/20 19 2018 Inactive discontinue any other H2Blkr. and PPI albuterol sulfate 2.5 mg/3 mL (0.083 %) solution for nebulization RxNorm: 914854 1 Vial Inhalation every four hours as needed as needed for dyspnea 08/17/20 19 2019 Inactive 60/box. This refill negates all other refills of this medication. Please do not fill early. Please do not auto refill. Symbicort 160 mcg-4.5 mcg/actuation HFA aerosol inhaler RxNorm: 8651386 2 Puff(s) INH BID 08/17/20 No Stop Date Active Alcohol Prep Pads RxNorm: 357768 1 Patch TOP QAM 08/17/20 19 2019 Inactive True Metrix Glucose Test Strip RxNorm: 1 Test Strips Miscellaneous QAM 08/09/20 19 2019 Inactive 100/container Ventolin HFA 90 mcg/actuation aerosol inhaler RxNorm: 700254 2 Puff(s) INH QID 08/09/20 19 2019 Inactive Please do not fill early. Please do not auto refill. This refill negates all other refills of this medication atorvastatin 40 mg tablet RxNorm: 695887 1 Tablet(s) Oral every day 07/04/20 19 2019 Inactive levmetamfetamine 50 mg nasal inhaler RxNorm: 1 Unit(s) NASAL Q3-4H Do not use more than every 3 hours or 8 times/24hours 06/26/20 19 2021 Inactive Please do not auto refill. This refill negates all other refills of this medication diclofenac sodium 75 mg tablet,delayed release RxNorm: 376915 1 Tablet(s) PO BID 06/26/20 19 2019 Inactive This refill negates all other refills of this medication buspirone 7.5 mg tablet RxNorm: 133609 1 Tablet(s) PO BID 06/26/20 19 2020 Inactive This refill negates all other refills of this medication hydrochlorothiazide 12.5 mg tablet RxNorm: 467899 1 Tablet(s) PO QAM 06/26/20 19 2019 Inactive Ventolin HFA 90 mcg/actuation aerosol inhaler RxNorm: 072863 2 Puff(s) INH QID 06/26/20 19 2018 Inactive Please do not fill early. Please do not auto refill. This refill negates all other refills of this medication Singulair 10 mg tablet RxNorm: 744596 1 Tablet(s) PO daily 06/26/20 19 2019 Inactive This refill negates all other refills of this medication cetirizine 10 mg tablet RxNorm: 8402102 1 Tablet(s) PO daily 06/26/20 19 2019 Inactive This refill negates all other refills of this medication. Please do not auto refill levothyroxine 50 mcg tablet RxNorm: 980065 1 Tablet(s) PO daily 06/26/202019 Inactive This refill negates all other refills of this medication ranitidine 150 mg tablet RxNorm: 704493 1 Tablet(s) PO BID 06/26/20 19 2018 Inactive This refill negates all other refills of this medication Calcium 600-D3 Plus (mag-zinc) 600 mg calcium-800 unit-50 mg tablet RxNorm: 1 Tablet(s) PO daily take an additonal tablet for itching. 06/26/20 19 2018 Inactive This refill negates all other refills of this medication albuterol sulfate 2.5 mg/3 mL (0.083 %) solution for nebulization RxNorm: 230498 1 Vial INH QID 06/26/20 19 2018 Inactive 60/box. This refill negates all other refills of this medication. Please do not fill early. Please do not auto refill. lisinopril 2.5 mg tablet RxNorm: 701846 1 Tablet(s) PO daily 06/21/20 19 2019 Inactive gabapentin 300 mg capsule RxNorm: 926238 1 Capsule(s) PO TID 06/21/20 19 2019 Inactive atorvastatin 20 mg tablet RxNorm: 115929 1 Tablet(s) PO QHS 06/07/20 19 2018 Inactive This refill negates all other refills of this medication TRUEplus Lancets 30 gauge RxNorm: 1 Lancets Miscellaneous QAM 05/29/20 19 2018 Inactive 100/box gabapentin 300 mg capsule RxNorm: 183504 1 Capsule(s) PO TID 05/03/20 19 2018 Inactive Flnickolas Complete (iron) 18 mg iron chewable tablet RxNorm: 1 Tablet(s) PO daily 04/04/20 19 2021 Inactive This refill negates all other refills of this medication gabapentin 300 mg capsule RxNorm: 669097 1 Capsule(s) PO TID as needed 02/01/20 19 2018 Inactive True Metrix Glucose Test Strip RxNorm: 1 Test Strips Miscellaneous QAM 02/01/20 19 2018 Inactive 100/container Alcohol Prep Pads RxNorm: 283283 1 Patch TOP QAM 02/01/20 19 2018 Inactive TRUEplus Lancets 30 gauge RxNorm: 1 Lancets Miscellaneous QAM 02/01/20 19 2018 Inactive 100/box lisinopril 2.5 mg tablet RxNorm: 580225 1 Tablet(s) PO daily 12/28/19 19 2018 Inactive ranitidine 150 mg tablet RxNorm: 565997 1 Tablet(s) PO BID 10/21/192018 Inactive This refill negates all other refills of this medication albuterol sulfate 2.5 mg/3 mL (0.083 %) solution for nebulization RxNorm: 117285 1 Vial INH QID 10/21/19 19 2018 [...] this medication gabapentin 300 mg capsule RxNorm: 342960 1 Capsule(s) PO TID as needed 10/21/19 19 2018 Inactive atorvastatin 20 mg tablet RxNorm: 825433 1 Tablet(s) PO QHS 10/21/19 19 2018 Inactive This refill negates all other refills of this medication trazodone 50 mg tablet RxNorm: 963316 1 Tablet(s) PO QHS 10/21/19 19 2018 Inactive This refill negates all other refills of this medication Ventolin HFA 90 mcg/actuation aerosol inhaler RxNorm: 288248 2 Puff(s) INH QID 10/21/192018 Inactive Please do not fill early. Please do not auto refill. This refill negates all other refills of this medication Calcium 600-D3 Plus 600 mg calcium-800 unit-50 mg tablet RxNorm: 1 Tablet(s) PO daily take an additonal tablet for itching. 10/21/19 19 2018 Inactive This refill negates all other refills of this medication Singulair 10 mg tablet RxNorm: 981708 1 Tablet(s) PO daily 10/21/192018 Inactive This refill negates all other refills of this medication buspirone 7.5 mg tablet RxNorm: 656023 1 Tablet(s) PO BID 10/21/192018 Inactive This refill negates all other refills of this medication diclofenac sodium 75 mg tablet,delayed release RxNorm: 124401 1 Tablet(s) PO BID 10/21/192018 Inactive This refill negates all other refills of this medication hydrochlorothiazide 12.5 mg tablet RxNorm: 238129 1 Tablet(s) PO QAM 10/21/192018 Inactive metoprolol succinate ER 50 mg tablet,extended release 24 hr RxNorm: 660372 1 Tablet(s) PO daily 10/21/19 19 2018 Inactive This refill negates all other refills of this medication levothyroxine 50 mcg tablet RxNorm: 392782 1 Tablet(s) PO daily 10/21/19 19 2018 Inactive This refill negates all other refills of this medication cetirizine 10 mg tablet RxNorm: 8147719 1 Tablet(s) PO daily 10/21/19 19 2018 Inactive This refill negates all other refills of this medication. Please do not auto refill Flintstones Complete (iron) 18 mg iron chewable tablet RxNorm: 1 Tablet(s) PO daily 10/21/19 19 2018 Inactive This refill negates all other refills of this medication buspirone 7.5 mg tablet RxNorm: 592686 1 Tablet(s) PO BID 10/12/19 19 2018 Inactive cetirizine 10 mg tablet RxNorm: 3370592 1 Tablet(s) PO daily 09/28/20 18 2018 Inactive Guaiasorb DM 10 mg-100 mg/5 mL oral liquid RxNorm: 668168 10 Milliliter(s) PO As needed every 4 hr 09/24/202018 Inactive Vicks Vaporub 4.7 %-1.2 %-2.6 % topical ointment RxNorm: 0704691 1 Application TOP TID 09/24/20 18 2018 Inactive levmetamfetamine 50 mg nasal inhaler RxNorm: 1 Unit(s) NASAL Q3-4H 09/24/20 18 2017 Inactive sertraline 50 mg tablet RxNorm: 890469 1 Tablet(s) PO daily 09/09/20 18 2018 Inactive Please note dose trazodone 50 mg tablet RxNorm: 458436 1 Tablet(s) PO QHS 09/06/20 18 2018 Inactive sertraline 50 mg tablet RxNorm: 689632 1 Tablet(s) PO daily 09/06/20 18 2017 Inactive amoxicillin 500 mg tablet RxNorm: 965134 1 Tablet(s) PO Q12H 08/31/20 18 2017 Inactive albuterol sulfate 2.5 mg/3 mL (0.083 %) solution for nebulization RxNorm: 548396 1 Vial INH QID 08/10/20 18 2018 Inactive 60/box. Please do not fill early. Please do not auto refill. Prozac 10 mg capsule RxNorm: 379639 1 Capsule(s) PO daily 08/09/20 18 2017 Inactive buspirone 7.5 mg tablet RxNorm: 882293 1 Tablet(s) PO BID 08/09/20 18 2018 Inactive gabapentin 300 mg capsule RxNorm: 926361 1 Capsule(s) PO TID as needed 08/01/20 18 2018 Inactive hydrochlorothiazide 12.5 mg tablet RxNorm: 944763 1 Tablet(s) PO QAM 08/01/20 18 2018 Inactive ranitidine 150 mg tablet RxNorm: 355123 1 Tablet(s) PO BID 08/01/20 18 2018 Inactive Macrobid 100 mg capsule RxNorm: 356554 1 Capsule(s) PO Q12H 06/21/20 18 2017 Inactive Singulair 10 mg tablet RxNorm: 987858 1 Tablet(s) PO daily 06/14/20 18 2018 Inactive Ventolin HFA 90 mcg/actuation aerosol inhaler RxNorm: 0118569 2 Puff(s) INH QID 06/14/20 18 2018 Inactive Singulair 10 mg tablet RxNorm: 088276 1 Tablet(s) PO daily 06/14/20 18 2017 Inactive buspirone 7.5 mg tablet RxNorm: 141188 1 Tablet(s) PO BID 06/14/20 18 2017 Inactive Prozac 10 mg capsule RxNorm: 978266 1 Capsule(s) PO daily 06/14/20 18 2017 Inactive Neilmed Pediatric Sinus Rinse Refill packet RxNorm: 1 Unit Dose NASAL PRN 05/31/20 18 2021 Inactive diclofenac sodium 75 mg tablet,delayed release RxNorm: 225940 1 Tablet(s) PO BID 05/31/20 18 2017 Inactive lisinopril 2.5 mg tablet RxNorm: 880111 1 Tablet(s) PO daily 05/31/20 18 2017 Inactive metoprolol succinate ER 50 mg tablet,extended release 24 hr RxNorm: 246954 1 Tablet(s) PO daily 05/31/20 18 2017 Inactive levothyroxine 50 mcg tablet RxNorm: 275529 1 Tablet(s) PO daily 05/31/20 18 2017 Inactive TRUEplus Lancets 30 gauge RxNorm: 1 Lancets Miscellaneous QAM 05/31/20 18 2017 Inactive 100/box Ventolin HFA 90 mcg/actuation aerosol inhaler RxNorm: 277868 2 Puff(s) INH QID 05/31/20 18 2017 Inactive Aleve 220 mg capsule RxNorm: 1490199 1 Capsule(s) PO BID 05/31/20 18 2018 Inactive ranitidine 150 mg tablet RxNorm: 815014 1 Tablet(s) PO BID 05/31/20 18 2017 Inactive gabapentin 300 mg capsule RxNorm: 528523 1 Capsule(s) PO TID as needed 05/31/20 18 2017 Inactive atorvastatin 20 mg tablet RxNorm: 325671 1 Tablet(s) PO QHS 05/31/20 18 2017 Inactive True Metrix Glucose Test Strip RxNorm: 1 Test Strips [facility] QA 05/31/20 18 2017 Inactive 50/container Calcium 600-D3 Plus 600 mg calcium-800 unit-50 mg tablet RxNorm: 1 Tablet(s) PO daily take an additonal tablet for itching. 05/31/20 18 2017 Inactive hydrochlorothiazide 12.5 mg tablet RxNorm: 603664 1 Tablet(s) PO QAM 05/31/20 18 2017 Inactive Flintstones Complete (iron) 18 mg iron chewable tablet RxNorm: 1 Tablet(s) PO daily 05/31/20 18 2017 Inactive d-mannose oral powder RxNorm: PO 18 2021 Inactive True Metrix Glucose Meter RxNorm: miscellaneous 08/17/20 19 2018 Inactive sertraline 50 mg tablet RxNorm: 303728 1 Tablet(s) PO daily 11/28/19 20 2019 Inactive loperamide 2 mg tablet RxNorm: 304967 oral 09/29/202018 Inactive Symbicort 160 mcg-4.5 mcg/actuation HFA aerosol inhaler RxNorm: 8244387 2 Puff(s) INH BID 08/17/202018 Inactive Medication Administered No Medication Administered data Procedures Procedure Codes Date [place] Fany Assessment CPT-4: DSWA 11/04 Patient Health Questionnaire CPT-4: DPHQ [place] Fany Assessment CPT-4: DSWA 10/03 Hypertension CPT-4: HTN 10/17/2019 Fall Risk Assessment SNOMED CT: 53928044 4 CPT-4: DFRA 09/19/2019 Functional Assessment CPT-4: DFA 09/19/2019 Urinalysis, dip stick CPT-4: 65645 06/21/2019 Tobacco Assessment/Screening CPT-4: TCA Patient Health Questionnaire CPT-4: DPHQ AHA/REBECCA Classification Assessment CPT-4: DAHA 04/25/2019 Controlled Substance Report CPT-4: CTRSU 04/03 Urinalysis, dip stick CPT-4: 58931 03/28/2019 Urinalysis, dip stick CPT-4: 23485 03/28/2019 [id number] CPT-4: 13338 Unknown [id number] CPT-4: 60881 Unknown Gynecology Referral SNOMED CT: 340533363 CPT-4: R14 Unknown Reason For Visit No Reason For Visit data Plan of Care Planned Activity Notes Codes Status Date Patient Education: Patient Medication Summary Completed 12/29/2019 Appointment: Anna Culver WPtel: [address] [place] [address] E452 11/28/2019 Appointment: Anna Culver WPtel: [address] [place] [address] E452 10/17/2019 Appointment: Anna Culver WPtel: [address] [place] [address] E452 09/19/2019 Appointment: Sudha Hernadez WPtel: [address] [facility] 202[address] [id number] 07/04/2019 Appointment: Maricarmen Lorimina WPtel: [address] [facility] [id number] 06/21/2019 Appointment: Charlene Oropeza WPtel: [address] [place] [address] [id number] 05/24/2019 Appointment: Mallory Delgado E452 04/27/2019 Appointment: Charlene Oropeza WPtel: [address] [place] [address] [id number] 04/25/2019 Appointment: Rasta aPlafox WPtel: [address] [place] [address] [id number] 03/28/2019 Appointment: Rasta Palafox WPtel: [address] [place] [address] [id number] 02/14/2019 Appointment: Rasta Palafox WPtel: [address] [place] [address] [id number] 01/31/2019 Appointment: Rasta Palafox WPtel: [address] [place] [address] [id number] 12/27/2018 Referral: Pending Gynecology Referral Information Referral Processed Referral: Pending Pulmonolog y Referral Information Referral Processed Referral: Pending Psychiatry Referral Information Referral Initiated Referral: Pending Respirator y Services Referral Information Referral Initiated Referral: Pending Ophthalmology Referral Information Ref[facility] WPtel: [address] [place] [address] Rim Turning Machine Operator placed a call out to the patient to notify her that it has been recommended that she be seen by 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 Patient agreed to be seen, does not have a provider of choice and no transportation issues. Rim Turning Machine Operator faxed referral and clinical notes to [facility] in [place], [place] near the patient's home. Patient to [...] seen and prefers a provider in the [place] or [place] area. Rim Turning Machine Operator placed a call out to everyone listed in the area and the only location that was able to accept the patient's insurance was [place] [address] [place] [address] and spoke with Maylin. Maylin asked that the patient's referral, face sheet and visit notes be faxed to . Rim Turning Machine Operator faxed over requested documents. Patient appointment confirmation letter generated and mailed to her home address. Patient to call to schedule an appointment. Processed Referral: [facility] WPtel: [address] [place], [place] [id number] Patient notified that it has been advised that she be seen by Neurology. Patient agreed to be seen and prefers to be seen by a provider in the [place], [place] area. Patient denies any concerns with transportation, and prefers to schedule her own appointment. Rim Turning Machine Operator placed a [facility] to [facility] and spoke with [...]
--- OUTSIDE RECORDS SUMMARY | 2020-10-13 20:00 | XMS_ITS | CCD ---
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 Frozen Yogurt Maker Name Role Phone Palomo KING, Anna Primary Care Provider Unav ailable Unavailable Chronic Care Management Unavaila ble Summary Purpose DataExchange Insurance Providers Payer name Policy type / Coverage type Covered constitution party ID Effective Begin Date Effective End Date SUKI MAYO [id number] Unknown Unknown Family history Mother Diagnosis Age [...] Unknown Disability 05/31/[address]: 336088902 Has never s moked or chewed tobacco 05/31/[address]: 948920062 Never drinks alco hol 05/31/2018 Has the [...] Condition Codes Effective Dates Condition St atus GERD (gastroesophageal reflu x disease) ICD-10: K21.9 ICD-9: 530.81 09/07/2019 Active Urinary tract infection ICD-10: N39.0 ICD-9: 599.0 10/01/2020 Active Abnormal urine finding ICD-10: R82.90 ICD-9: 791.9 09/24/2020 Active Adjustment disorder with mix ed anxiety and depressed mood ICD-10: F43.23 ICD-9: 309.28 09/05/2018 Active Hypertensive heart disease w ith heart failure ICD-10: I11.0 ICD-9: 402.91 04/25/2019 Active Type 2 diabetes mellitus wit h peripheral neuropathy ICD-10: E11.42 ICD-9: 250.60 11/28/2019 Active Polyneuropathy, unspecified ICD-10: G62. 9 ICD-9: 356.9 05/30/2018 Active Right wrist pain ICD-10: M25.531 ICD-9: 719.43 05/14/2020 Active Essential (primary) hypertension ICD-10: I10 ICD-9: 401.9 10/03/2018 Active Encounter for screening, unspecified ICD-10: Z13.9 ICD-9: V82.9 09/05/2018 Active (Z12.4-V76.2) Encounter for screening for malignant neoplasm of cervix ICD-10: Z12.4 ICD-9: V76.2 04/25/2019 Active Chronic kidney disease, unspecified ICD- 10: N18.9 ICD-9: 585.9 06/21/2019 Active Encounter for immunization ICD-10: Z23 ICD-9: V04.81 06/11/2020 Active Hyperlipidemia, unspecified ICD-10: E78. 5 ICD-9: 272.4 05/30/2018 Active Hypothyroidism, unspecified ICD-10: E03. 9 ICD-9: 244.9 09/05/2018 Active (Z12.11-V76.51) Encounter fo r screening for malignant neoplasm of colon ICD-10: Z12.11 ICD-9: V76.51 04/17/2020 Active (Z12.31-V76.12) Encounter fo r screening mammogram for malignant neoplasm of breast ICD-10: Z12.31 ICD-9: V76.12 04/17/2020 Active Adult BMI 50.0-59.9 kg/sq m ICD-10: Z68. 43 ICD-9: V85.43 05/30/2018 Active Abrasion of toe ICD-10: S90.416A ICD-9: 917.0 02/14/2020 Active Obstructive sleep apnea (chio lt) (pediatric) ICD-10: G47.33 ICD-9: 327.23 06/21/2019 Active Encounter for screening for tobacco use ICD-10: Z01.89 ICD-9: V72.85 01/01/2020 Active [place] eye ICD-10: H10.029 ICD-9: 372.03 12/29/2019 Active Syncope and collapse ICD-10: R55 ICD-9: 780.2 01/01/2020 Active Fecal incontinence ICD-10: R15.9 ICD-9: 787.60 12/15/2019 Active Mixed incontinence ICD-10: N39.46 ICD-9: 788.33 05/24/2019 Active Diarrhea ICD-10: R19.7 ICD-9: 787.91 09/29/2019 Active Type 2 diabetes mellitus wit hout complications ICD-10: E11.9 ICD-9: 250.00 10/03/2018 Active Sinusitis ICD-10: J32.9 ICD-9: 473.9 11/07/2019 Active Asthma ICD-10: J45.909 ICD-9: 493.90 08/08/2018 Active Acute upper respiratory infe ction, unspecified ICD-10: J06.9 ICD-9: 465.9 09/04/2019 Active Apnea, not elsewhere classified ICD-10: R06.81 ICD-9: 786.03 01/31/2019 Active Encounter for immunization ICD-10: Z23 ICD-9: V03.9 04/25/2019 Active Patient Not Seen ICD-10: UXZ.01 ICD-9: XZ0.1 04/27/2019 Active 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 ICD-10: Z79.899 ICD-9: [...] Headache ICD-10: R51 ICD-9: 784.0 10/03/2018 Active 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 non-steroidal anti-inflammatories (NSAID) ICD-10: Z79.1 ICD-9: V58.64 06/13/2018 Active Medications Medication Codes Instructions Start Date Stop Date Status Fill Instructions Alcohol Prep Pads RxNorm: 087906 USE EACH MORNING 10/14/19 21 2020 Inactive omeprazole 20 mg capsule,delayed release RxNorm: 491327 1 Capsule(s) Oral two times a day 10/13/19 21 2021 Inactive omeprazole 20 mg capsule,delayed release RxNorm: 381339 TAKE 1 CAPSULE BY MOUTH EVERY DAY 10/08/192021 Inactive Macrobid 100 mg capsule RxNorm: 656117 1 Capsule(s) Oral every 12 hours with food 10/01/20 20 2020 Inactive omeprazole 20 mg capsule,delayed release RxNorm: 261000 1 Capsule(s) Oral two times a day 09/24/20 20 2021 Inactive metformin 1,000 mg tablet RxNorm: 050124 1 Tablet(s) Oral two times a day 08/19/20 20 2020 Inactive start on September 11, 2020 metformin 500 mg tablet RxNorm: 588312 1 Tablet(s) Oral two times a day take with 500mg to equal 1000mg 08/19/20 20 2019 Inactive gabapentin 300 mg capsule RxNorm: 641673 TAKE 1 CAPSULE BY MOUTH THREE TIMES DAILY 07/11/20 20 2020 Inactive cetirizine 10 mg tablet RxNorm: 0089146 TAKE (1) TABLET BY MOUTH DAILY 07/11/20 20 2020 Inactive metformin 500 mg tablet RxNorm: 666487 1 Tablet(s) Oral two times a day 07/08/20 20 2019 Inactive loperamide 2 mg tablet RxNorm: 037638 1 Tablet(s) Oral as needed take one tablet after each loose stool, maximum of 8 tablets in 24 hours 06/24/20 20 2021 Inactive Sudafed 12 Hour 120 mg tablet,extended release RxNorm: 8242162 TAKE 1 TABLET BY MOUTH EVERY 12 HOURS NEEDED 06/11/20 20 2019 Inactive hydrochlorothiazide 25 mg tablet RxNorm: 098974 TAKE (1) TABLET BY MOUTH EVERY DAY 06/11/20 20 2019 Inactive omeprazole 20 mg capsule,delayed release RxNorm: 441991 TAKE 1 CAPSULE BY MOUTH EVERY DAY 05/14/20 20 2020 Inactive metformin 500 mg tablet RxNorm: 802940 1 Tablet(s) Oral every day 05/12/20 20 2019 Inactive True Metrix Glucose Test Strip RxNorm: 1 Test Strips Miscellaneous two times a day as needed 04/17/20 No Stop Date Active metformin 500 mg tablet RxNorm: 239584 1 Tablet(s) Oral every day 04/17/20 20 2019 Inactive diclofenac sodium 75 mg tablet,delayed release RxNorm: 899609 1 Tablet(s) PO BID 04/14/20 20 2021 Inactive This refill negates all other refills of this medication Sudafed 12 Hour 120 mg tablet,extended release RxNorm: 5762638 TAKE 1 TABLET BY MOUTH EVERY 12 HOURS NEEDED 03/14/20 20 2019 Inactive True Metrix Glucose Test Strip RxNorm: 1 Test Strips Miscellaneous every morning 03/13/20 20 2019 Inactive 100/container True Metrix Glucose Test Strip RxNorm: 1 Test Strips Miscellaneous QAM 02/22/20 20 2019 Inactive 100/container loperamide 2 mg tablet RxNorm: 670051 1 Tablet(s) Oral as needed take one tablet after each loose stool, maximum of 8 tablets in 24 hours 02/22/20 20 2019 Inactive levothyroxine 50 mcg tablet RxNorm: 682037 1 Tablet(s) PO daily 01/17/20 20 2020 Inactive cetirizine 10 mg tablet RxNorm: 5851746 1 Tablet(s) PO daily 01/17/20 20 2019 Inactive loperamide 2 mg tablet RxNorm: 262724 1 Tablet(s) Oral as needed take one tablet after each loose stool, maximum of 8 tablets in 24 hours 01/17/20 20 2019 Inactive quetiapine 100 mg tablet RxNorm: 236790 1 Tablet(s) Oral every night at bedtime 01/17/20 20 2019 Inactive gabapentin 300 mg capsule RxNorm: 722139 1 Capsule(s) PO TID 01/17/20 20 2019 Inactive lisinopril 2.5 mg tablet RxNorm: 656035 1 Tablet(s) PO daily 01/15/20 20 2020 Inactive Singulair 10 mg tablet RxNorm: 682363 1 Tablet(s) PO daily 01/15/20 20 2020 Inactive levothyroxine 50 mcg tablet RxNorm: 661643 1 Tablet(s) PO daily 01/15/20 20 2019 Inactive gabapentin 300 mg capsule RxNorm: 036592 1 Capsule(s) PO TID 01/15/20 20 2019 Inactive cetirizine 10 mg tablet RxNorm: 3429284 1 Tablet(s) PO daily 01/15/20 20 2019 Inactive gentamicin 0.3 % eye drops RxNorm: 283579 1 Drop(s) ophthalmic (eye) four times a day 12/29/19 20 2019 Inactive gentamicin 0.3 % eye drops RxNorm: 566478 1 Drop(s) ophthalmic (eye) four times a day 12/29/19 20 2019 Inactive gentamicin 0.3 % eye drops RxNorm: 791817 1 Drop(s) ophthalmic (eye) four times a day 12/29/19 20 2019 Inactive hydrochlorothiazide 25 mg tablet RxNorm: 844108 1 Tablet(s) Oral every day 12/21/19 20 2019 Inactive Sudafed 12 Hour 120 mg tablet,extended release RxNorm: 6334086 TAKE (1) TABLET BY MOUTH EVERY 12 HOURS NEEDED 12/21/19 20 2019 Inactive loperamide 2 mg tablet RxNorm: 499824 1 Tablet(s) Oral as needed take one tablet after each loose stool, maximum of 8 tablets in 24 hours 12/11/19 20 2019 Inactive loperamide 2 mg tablet RxNorm: 083764 1 Tablet(s) Oral as needed take one tablet after each loose stool, maximum of 8 tablets in 24 hours 12/11/19 20 2019 Inactive atorvastatin 40 mg tablet RxNorm: 160102 1 Tablet(s) Oral every day 11/29/19 20 2020 Inactive quetiapine 100 mg tablet RxNorm: 152329 1 Tablet(s) Oral every night at bedtime 11/28/19 20 2019 Inactive sertraline 100 mg tablet RxNorm: 475823 1 Tablet(s) Oral 11/28/19 20 2019 Inactive omeprazole 20 mg capsule,delayed release RxNorm: 055836 1 Capsule(s) Oral every day 11/20/19 20 2019 Inactive amoxicillin 250 mg capsule RxNorm: 754103 1 Capsule(s) Oral three times a day 11/07/19 20 2019 Inactive multivitamin with iron-mineral tablet RxNorm: 1 Tablet(s) Oral every day 10/29/19 20 2021 Inactive cetirizine 10 mg tablet RxNorm: 1529486 1 Tablet(s) PO daily 10/20/19 20 2019 Inactive This refill negates all other refills of this medication. Please do not auto refill Singulair 10 mg tablet RxNorm: 595051 1 Tablet(s) PO daily 10/20/19 20 2019 Inactive This refill negates all other refills of this medication gabapentin 300 mg capsule RxNorm: 542981 1 Capsule(s) PO TID 10/20/19 20 2019 Inactive lisinopril 2.5 mg tablet RxNorm: 648130 1 Tablet(s) PO daily 10/20/19 20 2019 Inactive levothyroxine 50 mcg tablet RxNorm: 109479 1 Tablet(s) PO daily 10/20/19 20 2019 Inactive This refill negates all other refills of this medication fenugreek seed extract 500 mg capsule RxNorm: 1 Capsule(s) Oral three times a day 10/17/19 20 2021 Inactive hydrochlorothiazide 25 mg tablet RxNorm: 022527 1 Tablet(s) Oral every day 10/17/19 20 2019 Inactive Alcohol Prep Pads RxNorm: 021167 1 Patch TOP QAM 10/16/19 20 2020 Inactive loperamide 2 mg tablet RxNorm: 780167 1 Tablet(s) Oral as needed take one [...] 2019 Inactive hydrochlorothiazide 25 mg tablet RxNorm: 807285 1 Tablet(s) Oral every day 09/19/20 19 2019 Inactive Sudafed 12 Hour 120 mg tablet,extended release RxNorm: 5161420 1 Tablet(s) Oral every 12 hours as needed 09/11/20 19 2018 Inactive omeprazole 20 mg capsule,delayed release RxNorm: 031733 1 Capsule(s) Oral every day 09/07/20 19 2019 Inactive Sudafed 12 Hour 120 mg tablet,extended release RxNorm: 5084608 1 Tablet(s) Oral every 12 hours as needed 09/04/20 19 2018 Inactive pantoprazole 40 mg tablet,delayed release RxNorm: 953517 1 Tablet(s) Oral every day 08/24/20 19 2018 Inactive discontinue any other H2Blkr. and PPI albuterol sulfate 2.5 mg/3 mL (0.083 %) solution for nebulization RxNorm: 835577 1 Vial Inhalation every four hours as needed as needed for dyspnea 08/17/20 19 2019 Inactive 60/box. This refill negates all other refills of this medication. Please do not fill early. Please do not auto refill. Symbicort 160 mcg-4.5 mcg/actuation HFA aerosol inhaler RxNorm: 2863540 2 Puff(s) INH BID 08/17/20 19 No Stop Date Active Alcohol Prep Pads RxNorm: 871621 1 Patch TOP QAM 08/17/20 19 2019 Inactive Ventolin HFA 90 mcg/actuation aerosol inhaler RxNorm: 817545 2 Puff(s) INH QID 08/09/20 19 2019 Inactive Please do not fill early. Please do not auto refill. This refill negates all other refills of this medication True Metrix Glucose Test Strip RxNorm: 1 Test Strips Miscellaneous QAM 08/09/20 19 2019 Inactive 100/container atorvastatin 40 mg tablet RxNorm: 777996 1 Tablet(s) Oral every day 07/04/20 19 2019 Inactive levmetamfetamine 50 mg nasal inhaler RxNorm: 1 Unit(s) NASAL Q3-4H Do not use more than every 3 hours or 8 times/24hours 06/26/20 19 2021 Inactive Please do not auto refill. This refill negates all other refills of this medication buspirone 7.5 mg tablet RxNorm: 774585 1 Tablet(s) PO BID 06/26/20 19 2020 Inactive This refill negates all other refills of this medication hydrochlorothiazide 12.5 mg tablet RxNorm: 994155 1 Tablet(s) PO QAM 06/26/20 19 2019 Inactive Ventolin HFA 90 mcg/actuation aerosol inhaler RxNorm: 498807 2 Puff(s) INH QID 06/26/20 19 2018 Inactive Please do not fill early. Please do not auto refill. This refill negates all other refills of this medication Singulair 10 mg tablet RxNorm: 965238 1 Tablet(s) PO daily 06/26/20 19 2019 Inactive This refill negates all other refills of this medication cetirizine 10 mg tablet RxNorm: 7130249 1 Tablet(s) PO daily 06/26/20 19 2019 Inactive This refill negates all other refills of this medication. Please do not auto refill levothyroxine 50 mcg tablet RxNorm: 463069 1 Tablet(s) PO daily 06/26/20 19 2019 Inactive This refill negates all other refills of this medication diclofenac sodium 75 mg tablet,delayed release RxNorm: 428939 1 Tablet(s) PO BID 06/26/20 19 2019 Inactive This refill negates all other refills of this medication ranitidine 150 mg tablet RxNorm: 379513 1 Tablet(s) PO BID 06/26/20 19 2018 Inactive This refill negates all other refills of this medication Calcium 600-D3 Plus (mag-zinc) 600 mg calcium-800 unit-50 mg tablet RxNorm: 1 Tablet(s) PO daily take an additonal tablet for itching. 06/26/20 19 2018 Inactive This refill negates all other refills of this medication albuterol sulfate 2.5 mg/3 mL (0.083 %) solution for nebulization RxNorm: 201194 1 Vial INH QID 06/26/20 19 2018 Inactive 60/box. This refill negates all other refills of this medication. Please do not fill early. Please do not auto refill. lisinopril 2.5 mg tablet RxNorm: 445796 1 Tablet(s) PO daily 06/21/20 19 2019 Inactive gabapentin 300 mg capsule RxNorm: 997579 1 Capsule(s) PO TID 06/21/20 19 2019 Inactive atorvastatin 20 mg tablet RxNorm: 232158 1 Tablet(s) PO QHS 06/07/20 19 2018 Inactive This refill negates all other refills of this medication TRUEplus Lancets 30 gauge RxNorm: 1 Lancets Miscellaneous QAM 05/29/20 19 2018 Inactive 100/box gabapentin 300 mg capsule RxNorm: 159761 1 Capsule(s) PO TID 05/03/20 19 2018 Inactive Flintstones Complete (iron) 18 mg iron chewable tablet RxNorm: 1 Tablet(s) PO daily 04/04/202021 Inactive This refill negates all other refills of this medication gabapentin 300 mg capsule RxNorm: 815366 1 Capsule(s) PO TID as needed 02/01/202018 Inactive True Metrix Glucose Test Strip RxNorm: 1 Test Strips Miscellaneous QAM 02/01/20 19 2018 Inactive 100/container Alcohol Prep Pads RxNorm: 803920 1 Patch TOP QAM 02/01/20 19 2018 Inactive TRUEplus Lancets 30 gauge RxNorm: 1 Lancets Miscellaneous QAM 02/01/202018 Inactive 100/box lisinopril 2.5 mg tablet RxNorm: 278465 1 Tablet(s) PO daily 12/28/192018 Inactive ranitidine 150 mg tablet RxNorm: 388689 1 Tablet(s) PO BID 10/21/192018 Inactive This refill negates all other refills of this medication albuterol sulfate 2.5 mg/3 mL (0.083 %) solution for nebulization RxNorm: 464225 1 Vial INH QID 10/21/192018 Inactive 60/box. [...] this medication gabapentin 300 mg capsule RxNorm: 255985 1 Capsule(s) PO TID as needed 10/21/192018 Inactive atorvastatin 20 mg tablet RxNorm: 620152 1 Tablet(s) PO QHS 10/21/192018 Inactive This refill negates all other refills of this medication trazodone 50 mg tablet RxNorm: 829099 1 Tablet(s) PO QHS 10/21/192018 Inactive This refill negates all other refills of this medication Ventolin HFA 90 mcg/actuation aerosol inhaler RxNorm: 174353 2 Puff(s) INH QID 10/21/192018 Inactive Please do not fill early. Please do not auto refill. This refill negates all other refills of this medication Calcium 600-D3 Plus 600 mg calcium-800 unit-50 mg tablet RxNorm: 1 Tablet(s) PO daily take an additonal tablet for itching. 10/21/192018 Inactive This refill negates all other refills of this medication Singulair 10 mg tablet RxNorm: 936762 1 Tablet(s) PO daily 10/21/192018 Inactive This refill negates all other refills of this medication buspirone 7.5 mg tablet RxNorm: 733317 1 Tablet(s) PO BID 10/21/192018 Inactive This refill negates all other refills of this medication diclofenac sodium 75 mg tablet,delayed release RxNorm: 799405 1 Tablet(s) PO BID 10/21/192018 Inactive This refill negates all other refills of this medication hydrochlorothiazide 12.5 mg tablet RxNorm: 028468 1 Tablet(s) PO QAM 10/21/192018 Inactive metoprolol succinate ER 50 mg tablet,extended release 24 hr RxNorm: 969209 1 Tablet(s) PO daily 10/21/192018 Inactive This refill negates all other refills of this medication levothyroxine 50 mcg tablet RxNorm: 329820 1 Tablet(s) PO daily 10/21/192018 Inactive This refill negates all other refills of this medication cetirizine 10 mg tablet RxNorm: 0453514 1 Tablet(s) PO daily 10/21/192018 Inactive This refill negates all other refills of this medication. Please do not auto refill Flintstones Complete (iron) 18 mg iron chewable tablet RxNorm: 1 Tablet(s) PO daily 10/21/192018 Inactive This refill negates all other refills of this medication buspirone 7.5 mg tablet RxNorm: 291301 1 Tablet(s) PO BID 10/12/19 19 2018 Inactive cetirizine 10 mg tablet RxNorm: 8785974 1 Tablet(s) PO daily 09/28/20 18 2018 Inactive Guaiasorb DM 10 mg-100 mg/5 mL oral liquid RxNorm: 373555 10 Milliliter(s) PO As needed every 4 hr 09/24/20 18 2018 Inactive Vicks Vaporub 4.7 %-1.2 %-2.6 % topical ointment RxNorm: 6450230 1 Application TOP TID 09/24/20 18 2018 Inactive levmetamfetamine 50 mg nasal inhaler RxNorm: 1 Unit(s) NASAL Q3-4H 09/24/20 18 2017 Inactive sertraline 50 mg tablet RxNorm: 500964 1 Tablet(s) PO daily 09/09/20 18 2018 Inactive Please note dose trazodone 50 mg tablet RxNorm: 497962 1 Tablet(s) PO QHS 09/06/20 18 2018 Inactive sertraline 50 mg tablet RxNorm: 593846 1 Tablet(s) PO daily 09/06/20 18 2017 Inactive amoxicillin 500 mg tablet RxNorm: 817770 1 Tablet(s) PO Q12H 08/31/20 18 2017 Inactive albuterol sulfate 2.5 mg/3 mL (0.083 %) solution for nebulization RxNorm: 556902 1 Vial INH QID 08/10/20 18 2018 Inactive 60/box. Please do not fill early. Please do not auto refill. Prozac 10 mg capsule RxNorm: 706009 1 Capsule(s) PO daily 08/09/20 18 2017 Inactive buspirone 7.5 mg tablet RxNorm: 187643 1 Tablet(s) PO BID 08/09/20 18 2018 Inactive gabapentin 300 mg capsule RxNorm: 230975 1 Capsule(s) PO TID as needed 08/01/20 18 2018 Inactive hydrochlorothiazide 12.5 mg tablet RxNorm: 107348 1 Tablet(s) PO QAM 08/01/20 18 2018 Inactive ranitidine 150 mg tablet RxNorm: 607727 1 Tablet(s) PO BID 08/01/20 18 2018 Inactive Macrobid 100 mg capsule RxNorm: 806751 1 Capsule(s) PO Q12H 06/21/20 18 2017 Inactive Singulair 10 mg tablet RxNorm: 804886 1 Tablet(s) PO daily 06/14/20 18 2018 Inactive Ventolin HFA 90 mcg/actuation aerosol inhaler RxNorm: 1026692 2 Puff(s) INH QID 06/14/20 18 2018 Inactive Singulair 10 mg tablet RxNorm: 477245 1 Tablet(s) PO daily 06/14/20 18 2017 Inactive buspirone 7.5 mg tablet RxNorm: 587007 1 Tablet(s) PO BID 06/14/20 18 2017 Inactive Prozac 10 mg capsule RxNorm: 297515 1 Capsule(s) PO daily 06/14/20 18 2017 Inactive Neilmed Pediatric Sinus Rinse Refill packet RxNorm: 1 Unit Dose NASAL PRN 05/31/20 18 2021 Inactive diclofenac sodium 75 mg tablet,delayed release RxNorm: 015139 1 Tablet(s) PO BID 05/31/20 18 2017 Inactive lisinopril 2.5 mg tablet RxNorm: 337017 1 Tablet(s) PO daily 05/31/20 18 2017 Inactive metoprolol succinate ER 50 mg tablet,extended release 24 hr RxNorm: 051231 1 Tablet(s) PO daily 05/31/20 18 2017 Inactive levothyroxine 50 mcg tablet RxNorm: 829635 1 Tablet(s) PO daily 05/31/20 18 2017 Inactive TRUEplus Lancets 30 gauge RxNorm: 1 Lancets Miscellaneous QAM 05/31/20 18 2017 Inactive 100/box Ventolin HFA 90 mcg/actuation aerosol inhaler RxNorm: 326428 2 Puff(s) INH QID 05/31/20 18 2017 Inactive Aleve 220 mg capsule RxNorm: 2116837 1 Capsule(s) PO BID 05/31/20 18 2018 Inactive ranitidine 150 mg tablet RxNorm: 347419 1 Tablet(s) PO BID 05/31/20 18 2017 Inactive gabapentin 300 mg capsule RxNorm: 457712 1 Capsule(s) PO TID as needed 05/31/20 18 2017 Inactive atorvastatin 20 mg tablet RxNorm: 282991 1 Tablet(s) PO QHS 05/31/20 18 2017 Inactive True Metrix Glucose Test Strip RxNorm: 1 Test Strips [facility] QAM 05/31/20 18 2017 Inactive 50/container Calcium 600-D3 Plus 600 mg calcium-800 unit-50 mg tablet RxNorm: 1 Tablet(s) PO daily take an additonal tablet for itching. 05/31/20 18 2017 Inactive hydrochlorothiazide 12.5 mg tablet RxNorm: 341394 1 Tablet(s) PO QAM 05/31/20 18 2017 Inactive Flintstones Complete (iron) 18 mg iron chewable tablet RxNorm: 1 Tablet(s) PO daily 05/31/20 18 2017 Inactive d-mannose oral powder RxNorm: PO 18 2021 Inactive True Metrix Glucose Meter RxNorm: miscellaneous 08/17/20 19 2018 Inactive sertraline 50 mg tablet RxNorm: 915160 1 Tablet(s) PO daily 11/28/19 20 2019 Inactive loperamide 2 mg tablet RxNorm: 547567 oral 09/29/20 19 2018 Inactive Symbicort 160 mcg-4.5 mcg/actuation HFA aerosol inhaler RxNorm: 1468049 2 Puff(s) INH BID 08/17/20 19 2018 Inactive Medication Administered No Medication Administered data Procedures Procedure Codes Date Urinalysis, dip stick CPT-4: 57909 09/24/2020 Patient Health Questionnaire CPT-4: DPHQ Electrocardiogram CPT-4: 82243 05/14/2020 Tobacco Assessment/Screening CPT-4: TCA Fall Risk Assessment SNOMED CT: 31368832 4 CPT-4: DFRA 01/01/2020 Functional Assessment CPT-4: DFA 01/01/2020 [place] Assessment CPT-4: DSWA 11/04 Patient Health Questionnaire CPT-4: DPHQ [place] Fany Assessment CPT-4: DSWA 10/03 Hypertension CPT-4: HTN 10/17/2019 Fall Risk Assessment SNOMED CT: 11633897 4 CPT-4: DFRA 09/19/2019 Functional Assessment CPT-4: DFA 09/19/2019 Urinalysis, dip stick CPT-4: 15054 06/21/2019 Tobacco Assessment/Screening CPT-4: TCA Patient Health Questionnaire CPT-4: DPHQ AHA/REBECCA Classification Assessment CPT-4: DAHA 04/25/2019 Controlled Substance Report CPT-4: CTRSU 04/03 Urinalysis, dip stick CPT-4: 36780 03/28/2019 Urinalysis, dip stick CPT-4: 04810 03/28/2019 [id number] CPT-4: 34432 Unknown F3B-Btnzkuqjlajaqyg CPT-4: 39907 Unknown S2I-Fjjpmyrjttftyfp CPT-4: 24716 Unknown R6Y-Bmtjtyxrvddwwmv CPT-4: 15759 Unknown J2G-Lqvenkrfhqcrfqr CPT-4: 26567 Unknown Gynecology Referral SNOMED CT: 513427376 CPT-4: R14 Unknown Reason For Visit No Reason For Visit data Plan of Care Planned Activity Notes Codes Status Date Referral: Pending Gynecology Referral Information Referral Processed Referral: Pending Pulmonolog y Referral Information Referral Processed Referral: Pending Psychiatry Referral Information Referral Initiated Referral: Pending Respirator y Services Referral Information Referral Initiated Referral: Pending Ophthalmol ogy Referral Information Referral [facility]iated [facility] WPtel: [address] [place] [address] [place] Pony Ride Operator placed a call out to the patient to notify her that it has been recommended that she be seen by 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 Patient agreed to be seen, does not have a provider of choice and no transportation issues. Pony Ride Operator faxed referral and clinical notes to [facility] in [place], [place] near the patient's home. Patient to [...] seen and prefers a provider in the [place] or [place] area. Pony Ride Operator placed a call out to everyone listed in the area and the only location that was able to accept the patient's insurance was [place] [address] [place] [address] and spoke with Maylin. Maylin asked that the patient's referral, face sheet and visit notes be faxed to . Pony Ride Operator faxed over requested documents. Patient appointment confirmation letter generated and mailed to her home address. Patient to call to schedule an appointment. [facility] W[facility]: [address] [place], [place] [id number] Patient notified that it has been advised that she be seen by Neurology. Patient agreed to be seen and prefers to be seen by a provider in the [place], [place] area. Patient denies any concerns with transportation, and prefers to schedule her own appointment. Pony Ride Operator [facility] and spoke with Neeraj P: who confirmed that their office is able to accept new patients and the patient's insurance. After confirming the providers fax number, conventional mortgage underwriter faxed over the patient's referral, [email or web address] [phone]
--- OUTSIDE RECORDS SUMMARY | 2020-11-27 20:00 | XMS_ITS | CCD ---
Author Name Chivo Bishop NP Address [address] [place] [address] Phone Organization [facility] Phone Care Team Providers Care Vp Strategy Name Role Phone Palomo KING, Anna Primary Care Provider Unav ailable Unavailable Chronic Care Management Unavaila ble Summary Purpose DataExchange Insurance Providers Payer name Policy type / Coverage type Covered green party ID Effective Begin Date Effective End Date SUKI MAYO [id number] Unknown Unknown Family history Mother Diagnosis Age [...] Unknown Disability 05/31/[address]: 481017106 Has never s moked or chewed tobacco 05/31/[address]: 656883639 Never drinks alco hol 05/31/2018 Has the [...] hypertension ICD-10: I10 ICD-9: 401.9 10/03/2018 Active GERD (gastroesophageal reflu x disease) ICD-10: K21.9 ICD-9: 530.81 09/07/2019 Active History of surgery on right wrist ICD-10 : Z98.890 ICD-9: V45.89 10/29/2020 Active Superficial burn of multiple sites of right hand, subsequent encounter ICD-10: T23.191D ICD-9: V58.89 11/28/2020 Active Type 2 diabetes mellitus wit h peripheral neuropathy ICD-10: E11.42 ICD-9: 250.60 11/28/2019 Active Adjustment disorder with mix ed anxiety and depressed mood ICD-10: F43.23 ICD-9: 309.28 09/05/2018 Active Chronic kidney disease, stag e 2 (mild) ICD-10: N18.2 ICD-9: 585.2 10/29/2020 Active Right wrist pain ICD-10: M25.531 ICD-9: 719.43 05/14/2020 Active Urinary tract infection ICD-10: N39.0 ICD-9: 599.0 10/01/2020 Active Abnormal urine finding ICD-10: R82.90 ICD-9: 791.9 09/24/2020 Active Hypertensive heart disease w ith heart failure ICD-10: I11.0 ICD-9: 402.91 04/25/2019 Active Polyneuropathy, unspecified ICD-10: G62. 9 ICD-9: 356.9 05/30/2018 Active Encounter for screening, unspecified ICD-10: Z13.9 [...] use ICD-10: Z01.89 ICD-9: V72.85 01/01/2020 Active [place] ICD-10: H10.029 ICD-9: 372.03 12/29/2019 Active [...] ICD-10: UXZ.01 ICD-9: XZ0.1 04/27/2019 Active Other bed bug 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 (current) dr sharma therapy ICD-10: Z79.899 ICD-9: V58.69 04/25/2019 Active [...] Headache ICD-10: R51 ICD-9: 784.0 10/03/2018 Active alf (current) use of non-steroidal anti-inflammatories (NSAID) ICD-10: Z79.1 ICD-9: V58.64 06/13/2018 Active Medications Medication Codes Instructions Start Date Stop Date Status Fill Instructions omeprazole 20 mg capsule,delayed release RxNorm: 754259 1 Capsule(s) Oral every evening 11/24/19 21 2020 Inactive famotidine 10 mg tablet RxNorm: 393633 1 Tablet(s) Oral every morning 11/24/19 21 2020 Inactive Alcohol Prep Pads RxNorm: 717803 USE EACH MORNING 10/14/19 21 2020 Inactive omeprazole 20 mg capsule,delayed release RxNorm: 594872 1 Capsule(s) Oral two times a day 10/13/19 21 2021 Inactive omeprazole 20 mg capsule,delayed release RxNorm: 984639 TAKE 1 CAPSULE BY MOUTH EVERY DAY 10/08/19 21 2021 Inactive Macrobid 100 mg capsule RxNorm: 932703 1 Capsule(s) Oral every 12 hours with food 10/01/202020 Inactive omeprazole 20 mg capsule,delayed release RxNorm: 786754 1 Capsule(s) Oral two times a day 09/24/2020 12/01/ 2022 Inactive metformin 1,000 mg tablet RxNorm: 973869 1 Tablet(s) Oral two times a day 08/19/20 20 2020 Inactive start on September 11, 2020 metformin 500 mg tablet RxNorm: 980373 1 Tablet(s) Oral two times a day take with 500mg to equal 1000mg 08/19/20 20 2019 Inactive gabapentin 300 mg capsule RxNorm: 718234 TAKE 1 CAPSULE BY MOUTH THREE TIMES DAILY 07/11/20 20 2020 Inactive cetirizine 10 mg tablet RxNorm: 6906077 TAKE (1) TABLET BY MOUTH DAILY 07/11/20 20 2020 Inactive metformin 500 mg tablet RxNorm: 572300 1 Tablet(s) Oral two times a day 07/08/20 20 2019 Inactive loperamide 2 mg tablet RxNorm: 541260 1 Tablet(s) Oral as needed take one tablet after each loose stool, maximum of 8 tablets in 24 hours 06/24/20 20 2021 Inactive Sudafed 12 Hour 120 mg tablet,extended release RxNorm: 1966250 TAKE 1 TABLET BY MOUTH EVERY 12 HOURS NEEDED 06/11/20 20 2019 Inactive hydrochlorothiazide 25 mg tablet RxNorm: 905467 TAKE (1) TABLET BY MOUTH EVERY DAY 06/11/20 20 2019 Inactive omeprazole 20 mg capsule,delayed release RxNorm: 501360 TAKE 1 CAPSULE BY MOUTH EVERY DAY 05/14/20 20 2020 Inactive metformin 500 mg tablet RxNorm: 175720 1 Tablet(s) Oral every day 05/12/20 20 2019 Inactive True Metrix Glucose Test Strip RxNorm: 1 Test Strips Miscellaneous two times a day as needed 04/17/20 No Stop Date Active metformin 500 mg tablet RxNorm: 308015 1 Tablet(s) Oral every day 04/17/20 20 2019 Inactive diclofenac sodium 75 mg tablet,delayed release RxNorm: 590018 1 Tablet(s) PO BID 04/14/20 20 2021 Inactive This refill negates all other refills of this medication Sudafed 12 Hour 120 mg tablet,extended release RxNorm: 4693662 TAKE 1 TABLET BY MOUTH EVERY 12 HOURS NEEDED 03/14/20 20 2019 Inactive True Metrix Glucose Test Strip RxNorm: 1 Test Strips Miscellaneous every morning 03/13/20 20 2019 Inactive 100/container True Metrix Glucose Test Strip RxNorm: 1 Test Strips Miscellaneous QAM 02/22/20 20 2019 Inactive 100/container loperamide 2 mg tablet RxNorm: 972024 1 Tablet(s) Oral as needed take one tablet after each loose stool, maximum of 8 tablets in 24 hours 02/22/20 20 2019 Inactive levothyroxine 50 mcg tablet RxNorm: 431018 1 Tablet(s) PO daily 01/17/20 20 2020 Inactive cetirizine 10 mg tablet RxNorm: 8600174 1 Tablet(s) PO daily 01/17/20 20 2019 Inactive loperamide 2 mg tablet RxNorm: 461000 1 Tablet(s) Oral as needed take one tablet after each loose stool, maximum of 8 tablets in 24 hours 01/17/20 20 2019 Inactive quetiapine 100 mg tablet RxNorm: 321592 1 Tablet(s) Oral every night at bedtime 01/17/20 20 2019 Inactive gabapentin 300 mg capsule RxNorm: 525528 1 Capsule(s) PO TID 01/17/20 20 2019 Inactive lisinopril 2.5 mg tablet RxNorm: 705218 1 Tablet(s) PO daily 01/15/20 20 2020 Inactive Singulair 10 mg tablet RxNorm: 934253 1 Tablet(s) PO daily 01/15/20 20 2020 Inactive levothyroxine 50 mcg tablet RxNorm: 757190 1 Tablet(s) PO daily 01/15/20 20 2019 Inactive gabapentin 300 mg capsule RxNorm: 986417 1 Capsule(s) PO TID 01/15/20 20 2019 Inactive cetirizine 10 mg tablet RxNorm: 8136400 1 Tablet(s) PO daily 01/15/20 20 2019 Inactive gentamicin 0.3 % eye drops RxNorm: 547716 1 Drop(s) ophthalmic (eye) four times a day 12/29/19 20 2019 Inactive gentamicin 0.3 % eye drops RxNorm: 106744 1 Drop(s) ophthalmic (eye) four times a day 12/29/19 20 2019 Inactive gentamicin 0.3 % eye drops RxNorm: 318764 1 Drop(s) ophthalmic (eye) four times a day 12/29/19 20 2019 Inactive hydrochlorothiazide 25 mg tablet RxNorm: 865456 1 Tablet(s) Oral every day 12/21/19 20 2019 Inactive Sudafed 12 Hour 120 mg tablet,extended release RxNorm: 7317455 TAKE (1) TABLET BY MOUTH EVERY 12 HOURS NEEDED 12/21/19 20 2019 Inactive loperamide 2 mg tablet RxNorm: 421496 1 Tablet(s) Oral as needed take one tablet after each loose stool, maximum of 8 tablets in 24 hours 12/11/19 20 2019 Inactive loperamide 2 mg tablet RxNorm: 300062 1 Tablet(s) Oral as needed take one tablet after each loose stool, maximum of 8 tablets in 24 hours 12/11/19 20 2019 Inactive atorvastatin 40 mg tablet RxNorm: 044220 1 Tablet(s) Oral every day 11/29/19 20 2020 Inactive quetiapine 100 mg tablet RxNorm: 986465 1 Tablet(s) Oral every night at bedtime 11/28/19 20 2019 Inactive sertraline 100 mg tablet RxNorm: 673498 1 Tablet(s) Oral 11/28/19 20 2019 Inactive omeprazole 20 mg capsule,delayed release RxNorm: 353519 1 Capsule(s) Oral every day 11/20/19 20 2019 Inactive amoxicillin 250 mg capsule RxNorm: 896014 1 Capsule(s) Oral three times a day 11/07/19 20 2019 Inactive multivitamin with iron-mineral tablet RxNorm: 1 Tablet(s) Oral every day 10/29/19 20 2021 Inactive cetirizine 10 mg tablet RxNorm: 5831958 1 Tablet(s) PO daily 10/20/19 20 2019 Inactive This refill negates all other refills of this medication. Please do not auto refill Singulair 10 mg tablet RxNorm: 365283 1 Tablet(s) PO daily 10/20/19 20 2019 Inactive This refill negates all other refills of this medication gabapentin 300 mg capsule RxNorm: 429647 1 Capsule(s) PO TID 10/20/19 20 2019 Inactive lisinopril 2.5 mg tablet RxNorm: 322136 1 Tablet(s) PO daily 10/20/19 20 2019 Inactive levothyroxine 50 mcg tablet RxNorm: 091666 1 Tablet(s) PO daily 10/20/192019 Inactive This refill negates all other refills of this medication fenugreek seed extract 500 mg capsule RxNorm: 1 Capsule(s) Oral three times a day 10/17/192021 Inactive hydrochlorothiazide 25 mg tablet RxNorm: 850220 1 Tablet(s) Oral every day 10/17/19 20 2019 Inactive Alcohol Prep Pads RxNorm: 890183 1 Patch TOP QAM 10/16/19 20 2020 Inactive loperamide 2 mg tablet RxNorm: 841843 1 Tablet(s) Oral as needed take one [...] 09/19/202019 Inactive hydrochlorothiazide 25 mg tablet RxNorm: 644529 1 Tablet(s) Oral every day 09/19/202019 Inactive Sudafed 12 Hour 120 mg tablet,extended release RxNorm: 5619737 1 Tablet(s) Oral every 12 hours as needed 09/11/20 19 2018 Inactive omeprazole 20 mg capsule,delayed release RxNorm: 808616 1 Capsule(s) Oral every day 09/07/20 19 2019 Inactive Sudafed 12 Hour 120 mg tablet,extended release RxNorm: 3084025 1 Tablet(s) Oral every 12 hours as needed 09/04/20 19 2018 Inactive pantoprazole 40 mg tablet,delayed release RxNorm: 487878 1 Tablet(s) Oral every day 08/24/20 19 2018 Inactive discontinue any other H2Blkr. and PPI albuterol sulfate 2.5 mg/3 mL (0.083 %) solution for nebulization RxNorm: 512225 1 Vial Inhalation every four hours as needed as needed for dyspnea 08/17/202019 Inactive 60/box. This refill negates all other refills of this medication. Please do not fill early. Please do not auto refill. Symbicort 160 mcg-4.5 mcg/actuation HFA aerosol inhaler RxNorm: 0152994 2 Puff(s) INH BID 08/17/20 No Stop Date Active Alcohol Prep Pads RxNorm: 558499 1 Patch TOP QAM 08/17/20 19 2019 Inactive Ventolin HFA 90 mcg/actuation aerosol inhaler RxNorm: 943356 2 Puff(s) INH QID 08/09/20 19 2019 Inactive Please do not fill early. Please do not auto refill. This refill negates all other refills of this medication True Metrix Glucose Test Strip RxNorm: 1 Test Strips Miscellaneous QAM 08/09/20 19 2019 Inactive 100/container atorvastatin 40 mg tablet RxNorm: 836878 1 Tablet(s) Oral every day 07/04/20 19 2019 Inactive levmetamfetamine 50 mg nasal inhaler RxNorm: 1 Unit(s) NASAL Q3-4H Do not use more than every 3 hours or 8 times/24hours 06/26/20 19 2021 Inactive Please do not auto refill. This refill negates all other refills of this medication buspirone 7.5 mg tablet RxNorm: 169417 1 Tablet(s) PO BID 06/26/20 19 2020 Inactive This refill negates all other refills of this medication hydrochlorothiazide 12.5 mg tablet RxNorm: 295148 1 Tablet(s) PO QAM 06/26/20 19 2019 Inactive Ventolin HFA 90 mcg/actuation aerosol inhaler RxNorm: 900560 2 Puff(s) INH QID 06/26/20 19 2018 Inactive Please do not fill early. Please do not auto refill. This refill negates all other refills of this medication Singulair 10 mg tablet RxNorm: 065917 1 Tablet(s) PO daily 06/26/20 19 2019 Inactive This refill negates all other refills of this medication cetirizine 10 mg tablet RxNorm: 5242754 1 Tablet(s) PO daily 06/26/20 19 2019 Inactive This refill negates all other refills of this medication. Please do not auto refill levothyroxine 50 mcg tablet RxNorm: 948811 1 Tablet(s) PO daily 06/26/20 19 2019 Inactive This refill negates all other refills of this medication diclofenac sodium 75 mg tablet,delayed release RxNorm: 955373 1 Tablet(s) PO BID 06/26/20 19 2019 Inactive This refill negates all other refills of this medication ranitidine 150 mg tablet RxNorm: 591288 1 Tablet(s) PO BID 06/26/20 19 2018 Inactive This refill negates all other refills of this medication Calcium 600-D3 Plus (mag-zinc) 600 mg calcium-800 unit-50 mg tablet RxNorm: 1 Tablet(s) PO daily take an additonal tablet for itching. 06/26/20 19 2018 Inactive This refill negates all other refills of this medication albuterol sulfate 2.5 mg/3 mL (0.083 %) solution for nebulization RxNorm: 287821 1 Vial INH QID 06/26/20 19 2018 Inactive 60/box. This refill negates all other refills of this medication. Please do not fill early. Please do not auto refill. lisinopril 2.5 mg tablet RxNorm: 255061 1 Tablet(s) PO daily 06/21/20 19 2019 Inactive gabapentin 300 mg capsule RxNorm: 043377 1 Capsule(s) PO TID 06/21/20 19 2019 Inactive atorvastatin 20 mg tablet RxNorm: 858496 1 Tablet(s) PO QHS 06/07/20 19 2018 Inactive This refill negates all other refills of this medication TRUEplus Lancets 30 gauge RxNorm: 1 Lancets Miscellaneous QAM 05/29/202018 Inactive 100/box gabapentin 300 mg capsule RxNorm: 188863 1 Capsule(s) PO TID 05/03/20 19 2018 Inactive Flintstones Complete (iron) 18 mg iron chewable tablet RxNorm: 1 Tablet(s) PO daily 04/04/202021 Inactive This refill negates all other refills of this medication gabapentin 300 mg capsule RxNorm: 265376 1 Capsule(s) PO TID as needed 02/01/202018 Inactive True Metrix Glucose Test Strip RxNorm: 1 Test Strips Miscellaneous QA 02/01/20 19 2018 Inactive 100/container Alcohol Prep Pads RxNorm: 175419 1 Patch TOP QA 02/01/202018 Inactive TRUEplus Lancets 30 gauge RxNorm: 1 Lancets Miscellaneous QA 02/01/20 19 2018 Inactive 100/box lisinopril 2.5 mg tablet RxNorm: 447754 1 Tablet(s) PO daily 12/28/19 19 2018 Inactive ranitidine 150 mg tablet RxNorm: 659845 1 Tablet(s) PO BID 10/21/19 19 2018 Inactive This refill negates all other refills of this medication albuterol sulfate 2.5 mg/3 mL (0.083 %) solution for nebulization RxNorm: 432463 1 Vial INH QID 10/21/192018 Inactive 60/box. [...] this medication gabapentin 300 mg capsule RxNorm: 873699 1 Capsule(s) PO TID as needed 10/21/19 19 2018 Inactive atorvastatin 20 mg tablet RxNorm: 489346 1 Tablet(s) PO QHS 10/21/192018 Inactive This refill negates all other refills of this medication trazodone 50 mg tablet RxNorm: 344737 1 Tablet(s) PO QHS 10/21/192018 Inactive This refill negates all other refills of this medication Ventolin HFA 90 mcg/actuation aerosol inhaler RxNorm: 672193 2 Puff(s) INH QID 10/21/192018 Inactive Please do not fill early. Please do not auto refill. This refill negates all other refills of this medication Calcium 600-D3 Plus 600 mg calcium-800 unit-50 mg tablet RxNorm: 1 Tablet(s) PO daily take an additonal tablet for itching. 10/21/192018 Inactive This refill negates all other refills of this medication Singulair 10 mg tablet RxNorm: 257857 1 Tablet(s) PO daily 10/21/192018 Inactive This refill negates all other refills of this medication buspirone 7.5 mg tablet RxNorm: 285731 1 Tablet(s) PO BID 10/21/192018 Inactive This refill negates all other refills of this medication diclofenac sodium 75 mg tablet,delayed release RxNorm: 526376 1 Tablet(s) PO BID 10/21/19 19 2018 Inactive This refill negates all other refills of this medication hydrochlorothiazide 12.5 mg tablet RxNorm: 436054 1 Tablet(s) PO QAM 10/21/19 19 2018 Inactive metoprolol succinate ER 50 mg tablet,extended release 24 hr RxNorm: 192598 1 Tablet(s) PO daily 10/21/19 19 2018 Inactive This refill negates all other refills of this medication levothyroxine 50 mcg tablet RxNorm: 196985 1 Tablet(s) PO daily 10/21/19 19 2018 Inactive This refill negates all other refills of this medication cetirizine 10 mg tablet RxNorm: 1485437 1 Tablet(s) PO daily 10/21/19 19 2018 Inactive This refill negates all other refills of this medication. Please do not auto refill Flintstones Complete (iron) 18 mg iron chewable tablet RxNorm: 1 Tablet(s) PO daily 10/21/192018 Inactive This refill negates all other refills of this medication buspirone 7.5 mg tablet RxNorm: 609018 1 Tablet(s) PO BID 10/12/192018 Inactive cetirizine 10 mg tablet RxNorm: 6183116 1 Tablet(s) PO daily 09/28/20 18 2018 Inactive Guaiasorb DM 10 mg-100 mg/5 mL oral liquid RxNorm: 681109 10 Milliliter(s) PO As needed every 4 hr 09/24/202018 Inactive Vicks Vaporub 4.7 %-1.2 %-2.6 % topical ointment RxNorm: 0206200 1 Application TOP TID 09/24/20 18 2018 Inactive levmetamfetamine 50 mg nasal inhaler RxNorm: 1 Unit(s) NASAL Q3-4H 09/24/20 18 2017 Inactive sertraline 50 mg tablet RxNorm: 152139 1 Tablet(s) PO daily 09/09/20 18 2018 Inactive Please note dose trazodone 50 mg tablet RxNorm: 611187 1 Tablet(s) PO QHS 09/06/20 18 2018 Inactive sertraline 50 mg tablet RxNorm: 710127 1 Tablet(s) PO daily 09/06/20 18 2017 Inactive amoxicillin 500 mg tablet RxNorm: 371248 1 Tablet(s) PO Q12H 08/31/20 18 2017 Inactive albuterol sulfate 2.5 mg/3 mL (0.083 %) solution for nebulization RxNorm: 005110 1 Vial INH QID 08/10/20 18 2018 Inactive 60/box. Please do not fill early. Please do not auto refill. Prozac 10 mg capsule RxNorm: 709737 1 Capsule(s) PO daily 08/09/20 18 2017 Inactive buspirone 7.5 mg tablet RxNorm: 251715 1 Tablet(s) PO BID 08/09/20 18 2018 Inactive gabapentin 300 mg capsule RxNorm: 665415 1 Capsule(s) PO TID as needed 08/01/20 18 2018 Inactive hydrochlorothiazide 12.5 mg tablet RxNorm: 544669 1 Tablet(s) PO QAM 08/01/20 18 2018 Inactive ranitidine 150 mg tablet RxNorm: 748984 1 Tablet(s) PO BID 08/01/20 18 2018 Inactive Macrobid 100 mg capsule RxNorm: 192739 1 Capsule(s) PO Q12H 06/21/20 18 2017 Inactive Singulair 10 mg tablet RxNorm: 136547 1 Tablet(s) PO daily 06/14/20 18 2018 Inactive Ventolin HFA 90 mcg/actuation aerosol inhaler RxNorm: 3548834 2 Puff(s) INH QID 06/14/20 18 2018 Inactive Singulair 10 mg tablet RxNorm: 170309 1 Tablet(s) PO daily 06/14/20 18 2017 Inactive buspirone 7.5 mg tablet RxNorm: 774369 1 Tablet(s) PO BID 06/14/20 18 2017 Inactive Prozac 10 mg capsule RxNorm: 207396 1 Capsule(s) PO daily 06/14/20 18 2017 Inactive Neilmed Pediatric Sinus Rinse Refill packet RxNorm: 1 Unit Dose NASAL PRN 05/31/20 18 2021 Inactive diclofenac sodium 75 mg tablet,delayed release RxNorm: 216264 1 Tablet(s) PO BID 05/31/20 18 2017 Inactive lisinopril 2.5 mg tablet RxNorm: 716655 1 Tablet(s) PO daily 05/31/20 18 2017 Inactive metoprolol succinate ER 50 mg tablet,extended release 24 hr RxNorm: 235727 1 Tablet(s) PO daily 05/31/20 18 2017 Inactive levothyroxine 50 mcg tablet RxNorm: 291323 1 Tablet(s) PO daily 05/31/20 18 2017 Inactive TRUEplus Lancets 30 gauge RxNorm: 1 Lancets Miscellaneous QAM 05/31/20 18 2017 Inactive 100/box Ventolin HFA 90 mcg/actuation aerosol inhaler RxNorm: 478470 2 Puff(s) INH QID 05/31/20 18 2017 Inactive Aleve 220 mg capsule RxNorm: 0297660 1 Capsule(s) PO BID 05/31/20 18 2018 Inactive ranitidine 150 mg tablet RxNorm: 444665 1 Tablet(s) PO BID 05/31/20 18 2017 Inactive gabapentin 300 mg capsule RxNorm: 196577 1 Capsule(s) PO TID as needed 05/31/20 18 2017 Inactive atorvastatin 20 mg tablet RxNorm: 155956 1 Tablet(s) PO QHS 05/31/20 18 2017 Inactive True Metrix Glucose Test Strip RxNorm: 1 Test Strips Miscellaneous QAM 05/31/20 18 2017 Inactive 50/container Calcium 600-D3 Plus 600 mg calcium-800 unit-50 mg tablet RxNorm: 1 Tablet(s) PO daily take an additonal tablet for itching. 05/31/20 18 2017 Inactive hydrochlorothiazide 12.5 mg tablet RxNorm: 303440 1 Tablet(s) PO QAM 05/31/20 18 2017 Inactive Flintstones Complete (iron) 18 mg iron chewable tablet RxNorm: 1 Tablet(s) PO daily 05/31/20 18 2017 Inactive d-mannose oral powder RxNorm: PO 18 2021 Inactive True Metrix Glucose Meter RxNorm: miscellaneous 08/17/20 19 2018 Inactive sertraline 50 mg tablet RxNorm: 136646 1 Tablet(s) PO daily 11/28/19 20 2019 Inactive loperamide 2 mg tablet RxNorm: 590329 oral 09/29/20 19 2018 Inactive Symbicort 160 mcg-4.5 mcg/actuation HFA aerosol inhaler RxNorm: 9249780 2 Puff(s) INH BID 08/17/20 19 2018 Inactive Medication Administered No Medication Administered data Procedures Procedure Codes Date Urinalysis, dip stick CPT-4: 98526 09/24/2020 Patient Health Questionnaire CPT-4: DPHQ Electrocardiogram CPT-4: 89401 05/14/2020 Tobacco Assessment/Screening CPT-4: TCA Fall Risk Assessment SNOMED CT: 56877110 4 CPT-4: DFRA 01/01/2020 Functional Assessment CPT-4: DFA 01/01/2020 Premium Fany Assessment CPT-4: DSWA 11/04 Patient Health Questionnaire CPT-4: DPHQ Premium Fany Assessment CPT-4: DSWA 10/03 Hypertension CPT-4: HTN 10/17/2019 Fall Risk Assessment SNOMED CT: 87107422 4 CPT-4: DFRA 09/19/2019 Functional Assessment CPT-4: DFA 09/19/2019 Urinalysis, dip stick CPT-4: 58933 06/21/2019 Tobacco Assessment/Screening CPT-4: TCA Patient Health Questionnaire CPT-4: DPHQ AHA/REBECCA Classification Assessment CPT-4: DAHA 04/25/2019 Controlled Substance Report CPT-4: CTRSU 04/03 Urinalysis, dip stick CPT-4: 36820 03/28/2019 Urinalysis, dip stick CPT-4: 07631 03/28/2019 G6A-Ihdwcskpttjtysq CPT-4: 86504 Unknown Y2D-Cgydafrticlphls CPT-4: 31259 Unknown E3T-Zhipifnmlhuuoot CPT-4: 67379 Unknown F8A-Evyivrxwuqbeibg CPT-4: 88691 Unknown O5U-Ywcwntgvfnzqwwr CPT-4: 91320 Unknown A8J-Mdlydcldaxiieci CPT-4: 84417 Unknown Gynecology Referral SNOMED CT: 556747845 CPT-4: R14 Unknown Reason For Visit Reason For Visit Effective Dates Notes diabetes mellitus 11/28/2020 gastroesophageal reflux disease 11/28/2020 Interim health update 11/28/2020 Encounters Encounter Performer Location Location Address Codes Magdi e ([id number]) (EST PT) EXPANDED PROBLEM FOCUSED TELEHEALTH VISIT Diagnosis: Superficial burn of multiple sites of right hand, subsequent encounter[ICD10: T23.191D] Diagnosis: Type 2 diabetes mellitus with peripheral neuropathy[ICD10: E11.42] Diagnosis: Essential (primary) hypertension[ICD10 : I10] Diagnosis: History of surgery on right wrist[ICD10: Z98.890] Diagnosis: GERD (gastroesophageal reflux disease)[ICD10: K21.9] [facility] [address] [place] [address] CPT-4: 19625 11/28/2020 Plan of Care Planned Activity Notes Codes Status Date Visit Plan: patient with access to I phone able to participate in visual and audio telehealth visit T23.191D-V58.89 Superficial burn of multiple sites of right hand, subsequent encounter Reviewed ER notes from [facility] 11/26/20 Superfical burn among dorsal side of [...] BID - received new monitor Biot[employer] through [place]-participant of [facility] on demand - 10/29/2020 hgb A1C 5.6 10/17/2019 Premium Fany 7/10-instructed on good daily foot care [...] pending-but believes it is December K21.9-530.81 GERD (gastroesophageal reflux disease) trial of [...] anxiety and depressed mood routine follow up [place] [facility] [place] 08/19/2020 PHQ 9 [place] 1, admits to [...] to right wrist- Dr. Tee Shahid, hand wildlife refuge specialist, outpatient surgery 10/09/2019 for arthoscopic exam [...] new appt for pap in June 2020-[facility] [employer] Super[facility]-reports pap negative-records requested Z01.89-V72.85 Encounter for screening for tobacco use Tobacco screen complete-patient denies ever smoking Z12.31-V76.12 (Z12.31-V76.12) Encounter for screening mammogram for malignant neoplasm of breast Z12.11-V76.51 (Z12.11-V76.51) Encounter for screening for malignant neoplasm of colon Preventative testing not indicated due to age *I reviewed the most recent CDC guidelines regarding Covid-19/Coronavirus with the patient/caregiver/designee Specific topics reviewed were: Proper handwashing technique and frequency Practicing appropriate Social Distancing/isolation Limiting face touching Proper sanitization of high contact areas in their environment Reporting procedures if symptoms/exposure occur Known Coronavirus transmission modalities Common symptoms of Covid-19 disease Known high risk populations for developing severe/fatal infections Covid-19 disease transmission from asymptomatic carriers *The person contacted during this visit verbalized understanding of all above topics. 11/28/2020 Patient Education: Patient Medication Summary Completed 11/28/2020 Appointment: Anna Culver WPtel: [address] [place], [place] [id number] ETV 11/24/2020 Appointment: Anna Culver WPtel: [address] [place] [address] [place] [id number] 10/29/2020 Appointment: Anna Culver WPtel: [address] [place] [address] [place] E410 09/24/2020 Appointment: Anna Culver WPtel: [address] [place] [address] [place] 08/26/2020 Appointment: Anna Culver WPtel: [address] [place] [address] [place] 08/19/2020 Appointment: Anna Culver WPtel: [address] [place] [address] [place] 07/22/2020 Appointment: Anna Culver WPtel: [address] [place] [address] [place] ETV 07/08/2020 Appointment: Gianna Birmingham: [address] [facility] 100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
--- OUTSIDE RECORDS SUMMARY | 2021-01-28 20:00 | XMS_ITS | CCD ---
Author Name Chivo Bishop NP Address [address] [place] [address] Phone Organization [facility] Phone Care Team Providers [facility] [employer] [facility] Name Role Phone Palomo KING, Anna Primary Care Provider Unav ailable Unavailable Chronic Care Management Unavaila ble Summary Purpose DataExchange Insurance Providers Payer name Policy type / Coverage type Covered libertarian ID Effective Begin Date Effective End Date SUKI MAYO [id number] Unknown Unknown Family history Mother Diagnosis Age [...] Unknown Disability 05/31/[address]: 786484733 Has never s moked or chewed tobacco 05/31/[address]: 806339487 Never drinks alco hol 05/31/2018 Has the patient ever used illegal drugs? Unknown Has never used illegal drugs 05/31/2018 DNR Order/ Advanced Directive Unknown Full Code 05/31/2018 Allergies, Adverse Reactions, Alerts Substance Reaction Codes Entered Date Inactivated Date Status OxyContin itch, RxNorm: 055055 01/13/2021 No Inactive Da te Active *No known food allergies Unknown 09/06/2018 No I nactive Date Active Methylprednisolone hives RxNorm: 6902 09/06/2018 No Inac tive Date Active Problems Condition Codes Effective Dates Condition St atus Chronic kidney disease, stag e 2 (mild) ICD-10: N18.2 ICD-9: 585.2 10/29/2020 Active Elevated liver enzymes ICD-10: R74.8 ICD-9: 790.5 01/29/2021 Active GERD (gastroesophageal reflu x disease) ICD-10: K21.9 ICD-9: 530.81 09/07/2019 Active History of bladder surgery ICD-10: Z98.8 90 ICD-9: V45.89 01/13/2021 Active Hypertensive heart disease w ith heart failure ICD-10: I11.0 ICD-9: 402.91 04/25/2019 Active Type 2 diabetes mellitus wit h peripheral neuropathy ICD-10: E11.42 ICD-9: 250.60 11/28/2019 Active Urinary retention with incom plete bladder emptying ICD-10: R33.9 ICD-9: 788.21 01/13/2021 Active (Z00.01-V70.0) Encounter for general adult medical examination with abnormal findings ICD-10: Z00.01 ICD-9: V70.0 01/13/2021 Active (Z13.31-V79.0) Encounter for screening for depression ICD-10: Z13.31 ICD-9: V79.0 01/13/2021 Active Encounter for immunization ICD-10: Z23 ICD-9: V04.81 06/11/2020 Inactive Essential (primary) hypertension ICD-10: I10 ICD-9: 401.9 10/03/2018 Inactive Anorexia ICD-10: R63.0 ICD-9: 783.0 12/17/2020 Active Obstructive sleep apnea (chio lt) (pediatric) ICD-10: G47.33 ICD-9: 327.23 06/21/2019 Active Apnea, not elsewhere classified ICD-10: R06.81 ICD-9: 786.03 01/31/2019 Inactive Chest pain, unspecified ICD-10: R07.9 ICD-9: 786.50 11/29/2018 Inactive Chronic kidney disease, unspecified ICD- 10: N18.9 ICD-9: 585.9 06/21/2019 Inactive Diarrhea ICD-10: R19.7 ICD-9: 787.91 09/29/2019 Inactive Encounter for immunization ICD-10: Z23 ICD-9: V03.9 04/25/2019 Inactive Encounter for preprocedural cardiovascular examination ICD-10: Z01.810 ICD-9: V72.81 03/28/2019 Inactive Headache ICD-10: R51 ICD-9: 784.0 10/03/2018 Inactive 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 (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) dr 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 therapy ICD-10: Z79.899 ICD-9: V58.69 04/25/2019 Inactive Type 2 diabetes mellitus wit hout complications ICD-10: E11.9 ICD-9: 250.00 10/03/2018 Inactive Wheezing ICD-10: R06.2 ICD-9: 786.07 08/08/2018 Inactive Abnormal urine finding ICD-10: R82.90 ICD-9: 791.9 09/24/2020 Resolved Abrasion of toe ICD-10: S90.416A ICD-9: 917.0 02/14/2020 Resolved Acute upper respiratory infe ction, unspecified ICD-10: J06.9 ICD-9: 465.9 09/04/2019 Resolved Crestone eye ICD-10: H10.029 ICD-9: 372.03 12/29/2019 Resolved Right wrist pain ICD-10: M25.531 ICD-9: 719.43 05/14/2020 Resolved Sinusitis ICD-10: J32.9 ICD-9: 473.9 11/07/2019 Resolved Superficial burn of multiple sites of right hand, subsequent encounter ICD-10: T23.191D ICD-9: V58.89 11/28/2020 Resolved Urinary tract infection ICD-10: N39.0 ICD-9: 599.0 10/01/2020 Resolved Adjustment disorder with mix ed anxiety and depressed mood ICD-10: F43.23 ICD-9: 309.28 09/05/2018 Active Polyneuropathy, unspecified ICD-10: G62. 9 ICD-9: 356.9 05/30/2018 Active Encounter for screening, unspecified ICD-10: Z13.9 ICD-9: V82.9 09/05/2018 Active (Z12.4-V76.2) Encounter for screening for malignant neoplasm of cervix ICD-10: Z12.4 ICD-9: V76.2 04/25/2019 Active Hyperlipidemia, unspecified ICD-10: E78. 5 ICD-9: [...] ICD-10: Z68. 43 ICD-9: V85.43 05/30/2018 Active Syncope and collapse ICD-10: R55 ICD-9: 780.2 01/01/2020 Active Fecal incontinence ICD-10: R15.9 ICD-9: 787.60 12/15/2019 Active Mixed incontinence ICD-10: N39.46 ICD-9: 788.33 05/24/2019 Active Asthma ICD-10: J45.909 ICD-9: 493.90 08/08/2018 Active Patient Not Seen ICD-10: UXZ.01 ICD-9: XZ0.1 04/27/2019 Active Dyspnea, unspecified ICD-10: R06.00 ICD-9: 786.09 02/08/2019 Active Post-traumatic stress disord er, unspecified ICD-10: F43.10 ICD-9: 309.81 09/05/2018 Active Abnormal electrocardiogram [ ECG] [EKG] ICD-10: R94.31 ICD-9: 794.31 05/30/2018 Active Edema, unspecified ICD-10: R60.9 ICD-9: 782.3 07/11/2018 Active 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-steroidal anti-inflammatories (NSAID) ICD-10: Z79.1 ICD-9: V58.64 06/13/2018 Active Medications Medication Codes Instructions Start Date Stop Date Status Fill Instructions metformin 500 mg tablet RxNorm: 181710 1 Tablet(s) Oral two times a day take with 500mg to equal 1000mg 01/14/20 21 2020 Inactive gabapentin 300 mg capsule RxNorm: 014332 TAKE 1 CAPSULE BY MOUTH THREE TIMES A DAY 01/14/20 2020 Inactive lisinopril 2.5 mg tablet RxNorm: 621479 TAKE 1 TABLET BY MOUTH DAILY 01/06/20 21 2020 Inactive gabapentin 300 mg capsule RxNorm: 834103 TAKE 1 CAPSULE BY MOUTH THREE TIMES A DAY 01/06/20 21 2020 Inactive Singulair 10 mg tablet RxNorm: 771077 TAKE (1) TABLET BY MOUTH DAILY 01/06/20 21 2020 Inactive metformin 1,000 mg tablet RxNorm: 457246 1 Tablet(s) Oral two times a day 01/06/20 21 2020 Inactive atorvastatin 40 mg tablet RxNorm: 414115 1 Tablet(s) Oral every day 12/06/19 21 2020 Inactive omeprazole 20 mg capsule,delayed release RxNorm: 448117 1 Capsule(s) Oral every evening 11/24/19 21 2020 Inactive famotidine 10 mg tablet RxNorm: 041602 1 Tablet(s) Oral every morning 11/24/19 21 2020 Inactive Alcohol Prep Pads RxNorm: 710242 USE EACH MORNING 10/14/19 21 2020 Inactive omeprazole 20 mg capsule,delayed release RxNorm: 853015 1 Capsule(s) Oral two times a day 10/13/19 21 2021 Inactive omeprazole 20 mg capsule,delayed release RxNorm: 111554 TAKE 1 CAPSULE BY MOUTH EVERY DAY 10/08/192021 Inactive Macrobid 100 mg capsule RxNorm: 633137 1 Capsule(s) Oral every 12 hours with food 10/01/202020 Inactive omeprazole 20 mg capsule,delayed release RxNorm: 575822 1 Capsule(s) Oral two times a day 09/24/20 20 2021 Inactive metformin 1,000 mg tablet RxNorm: 623410 1 Tablet(s) Oral two times a day 08/19/20 20 2020 Inactive start on September 11, 2020 metformin 500 mg tablet RxNorm: 385837 1 Tablet(s) Oral two times a day take with 500mg to equal 1000mg 08/19/20 20 2019 Inactive gabapentin 300 mg capsule RxNorm: 135685 TAKE 1 CAPSULE BY MOUTH THREE TIMES DAILY 07/11/20 20 2020 Inactive cetirizine 10 mg tablet RxNorm: 5236566 TAKE (1) TABLET BY MOUTH DAILY 07/11/20 20 2020 Inactive metformin 500 mg tablet RxNorm: 130383 1 Tablet(s) Oral two times a day 07/08/20 20 2019 Inactive loperamide 2 mg tablet RxNorm: 997668 1 Tablet(s) Oral as needed take one tablet after each loose stool, maximum of 8 tablets in 24 hours 06/24/20 20 2021 Inactive Sudafed 12 Hour 120 mg tablet,extended release RxNorm: 4965264 TAKE 1 TABLET BY MOUTH EVERY 12 HOURS NEEDED 06/11/20 20 2019 Inactive hydrochlorothiazide 25 mg tablet RxNorm: 162018 TAKE (1) TABLET BY MOUTH EVERY DAY 06/11/20 20 2019 Inactive omeprazole 20 mg capsule,delayed release RxNorm: 941942 TAKE 1 CAPSULE BY MOUTH EVERY DAY 05/14/20 20 2020 Inactive metformin 500 mg tablet RxNorm: 353546 1 Tablet(s) Oral every day 05/12/20 20 2019 Inactive True Metrix Glucose Test Strip RxNorm: 1 Test Strips Miscellaneous two times a day as needed 04/17/20 No Stop Date Active metformin 500 mg tablet RxNorm: 080813 1 Tablet(s) Oral every day 04/17/20 20 2019 Inactive diclofenac sodium 75 mg tablet,delayed release RxNorm: 977802 1 Tablet(s) PO BID 04/14/20 20 2021 Inactive This refill negates all other refills of this medication Sudafed 12 Hour 120 mg tablet,extended release RxNorm: 5403827 TAKE 1 TABLET BY MOUTH EVERY 12 HOURS NEEDED 03/14/20 20 2019 Inactive True Metrix Glucose Test Strip RxNorm: 1 Test Strips Miscellaneous every morning 03/13/20 20 2019 Inactive 100/container True Metrix Glucose Test Strip RxNorm: 1 Test Strips Miscellaneous QA 02/22/20 20 2019 Inactive 100/container loperamide 2 mg tablet RxNorm: 428191 1 Tablet(s) Oral as needed take one tablet after each loose stool, maximum of 8 tablets in 24 hours 02/22/20 20 2019 Inactive levothyroxine 50 mcg tablet RxNorm: 170875 1 Tablet(s) PO daily 01/17/20 20 2020 Inactive cetirizine 10 mg tablet RxNorm: 7185956 1 Tablet(s) PO daily 01/17/20 20 2019 Inactive loperamide 2 mg tablet RxNorm: 928671 1 Tablet(s) Oral as needed take one tablet after each loose stool, maximum of 8 tablets in 24 hours 01/17/20 20 2019 Inactive quetiapine 100 mg tablet RxNorm: 185309 1 Tablet(s) Oral every night at bedtime 01/17/20 20 2019 Inactive gabapentin 300 mg capsule RxNorm: 626036 1 Capsule(s) PO TID 01/17/20 20 2019 Inactive levothyroxine 50 mcg tablet RxNorm: 905143 1 Tablet(s) PO daily 01/15/20 20 2019 Inactive lisinopril 2.5 mg tablet RxNorm: 493140 1 Tablet(s) PO daily 01/15/20 20 2020 Inactive gabapentin 300 mg capsule RxNorm: 508427 1 Capsule(s) PO TID 01/15/20 20 2019 Inactive cetirizine 10 mg tablet RxNorm: 5778900 1 Tablet(s) PO daily 01/15/20 20 2019 Inactive Singulair 10 mg tablet RxNorm: 042810 1 Tablet(s) PO daily 01/15/20 20 2020 Inactive gentamicin 0.3 % eye drops RxNorm: 320217 1 Drop(s) ophthalmic (eye) four times a day 12/29/19 20 2019 Inactive gentamicin 0.3 % eye drops RxNorm: 980183 1 Drop(s) ophthalmic (eye) four times a day 12/29/19 20 2019 Inactive gentamicin 0.3 % eye drops RxNorm: 160883 1 Drop(s) ophthalmic (eye) four times a day 12/29/19 20 2019 Inactive hydrochlorothiazide 25 mg tablet RxNorm: 805896 1 Tablet(s) Oral every day 12/21/19 20 2019 Inactive Sudafed 12 Hour 120 mg tablet,extended release RxNorm: 0614225 TAKE (1) TABLET BY MOUTH EVERY 12 HOURS NEEDED 12/21/19 20 2019 Inactive loperamide 2 mg tablet RxNorm: 705691 1 Tablet(s) Oral as needed take one tablet after each loose stool, maximum of 8 tablets in 24 hours 12/11/19 20 2019 Inactive loperamide 2 mg tablet RxNorm: 859644 1 Tablet(s) Oral as needed take one tablet after each loose stool, maximum of 8 tablets in 24 hours 12/11/19 20 2019 Inactive atorvastatin 40 mg tablet RxNorm: 585154 1 Tablet(s) Oral every day 11/29/19 20 2020 Inactive quetiapine 100 mg tablet RxNorm: 169046 1 Tablet(s) Oral every night at bedtime 11/28/19 20 2019 Inactive sertraline 100 mg tablet RxNorm: 636890 1 Tablet(s) Oral 11/28/19 20 2019 Inactive omeprazole 20 mg capsule,delayed release RxNorm: 115978 1 Capsule(s) Oral every day 11/20/19 20 2019 Inactive amoxicillin 250 mg capsule RxNorm: 920670 1 Capsule(s) Oral three times a day 11/07/19 20 2019 Inactive multivitamin with iron-mineral tablet RxNorm: 1 Tablet(s) Oral every day 10/29/19 20 2021 Inactive cetirizine 10 mg tablet RxNorm: 4179061 1 Tablet(s) PO daily 10/20/19 20 2019 Inactive This refill negates all other refills of this medication. Please do not auto refill Singulair 10 mg tablet RxNorm: 280025 1 Tablet(s) PO daily 10/20/19 20 2019 Inactive This refill negates all other refills of this medication gabapentin 300 mg capsule RxNorm: 819092 1 Capsule(s) PO TID 1920 01/13/ 2020 Inactive lisinopril 2.5 mg tablet RxNorm: 237457 1 Tablet(s) PO daily 10/20/19 20 2019 Inactive levothyroxine 50 mcg tablet RxNorm: 864467 1 Tablet(s) PO daily 10/20/19 20 2019 Inactive This refill negates all other refills of this medication fenugreek seed extract 500 mg capsule RxNorm: 1 Capsule(s) Oral three times a day 10/17/19 20 2021 Inactive hydrochlorothiazide 25 mg tablet RxNorm: 798610 1 Tablet(s) Oral every day 10/17/19 20 2019 Inactive Alcohol Prep Pads RxNorm: 909855 1 Patch TOP QAM 10/16/19 20 2020 Inactive loperamide 2 mg tablet RxNorm: 561362 1 Tablet(s) Oral as needed take one [...] 09/19/202019 Inactive hydrochlorothiazide 25 mg tablet RxNorm: 231352 1 Tablet(s) Oral every day 09/19/202019 Inactive Sudafed 12 Hour 120 mg tablet,extended release RxNorm: 1962567 1 Tablet(s) Oral every 12 hours as needed 09/11/20 19 2018 Inactive omeprazole 20 mg capsule,delayed release RxNorm: 680008 1 Capsule(s) Oral every day 09/07/20 19 2019 Inactive Sudafed 12 Hour 120 mg tablet,extended release RxNorm: 1634711 1 Tablet(s) Oral every 12 hours as needed 09/04/20 19 2018 Inactive pantoprazole 40 mg tablet,delayed release RxNorm: 936724 1 Tablet(s) Oral every day 08/24/20 19 2018 Inactive discontinue any other H2Blkr. and PPI albuterol sulfate 2.5 mg/3 mL (0.083 %) solution for nebulization RxNorm: 710528 1 Vial Inhalation every four hours as needed as needed for dyspnea 08/17/202019 Inactive 60/box. This refill negates all other refills of this medication. Please do not fill early. Please do not auto refill. Symbicort 160 mcg-4.5 mcg/actuation HFA aerosol inhaler RxNorm: 4758636 2 Puff(s) INH BID 08/17/20 No Stop Date Active Alcohol Prep Pads RxNorm: 959437 1 Patch TOP QAM 08/17/202019 Inactive Ventolin HFA 90 mcg/actuation aerosol inhaler RxNorm: 902822 2 Puff(s) INH QID 08/09/202019 Inactive Please do not fill early. Please do not auto refill. This refill negates all other refills of this medication True Metrix Glucose Test Strip RxNorm: 1 Test Strips Miscellaneous QAM 08/09/20 19 2019 Inactive 100/container atorvastatin 40 mg tablet RxNorm: 763540 1 Tablet(s) Oral every day 07/04/20 19 2019 Inactive levmetamfetamine 50 mg nasal inhaler RxNorm: 1 Unit(s) NASAL Q3-4H Do not use more than every 3 hours or 8 times/24hours 06/26/20 19 2021 Inactive Please do not auto refill. This refill negates all other refills of this medication buspirone 7.5 mg tablet RxNorm: 408979 1 Tablet(s) PO BID 06/26/20 19 2020 Inactive This refill negates all other refills of this medication hydrochlorothiazide 12.5 mg tablet RxNorm: 469081 1 Tablet(s) PO QAM 06/26/20 19 2019 Inactive Ventolin HFA 90 mcg/actuation aerosol inhaler RxNorm: 607414 2 Puff(s) INH QID 06/26/20 19 2018 Inactive Please do not fill early. Please do not auto refill. This refill negates all other refills of this medication Singulair 10 mg tablet RxNorm: 746332 1 Tablet(s) PO daily 06/26/20 19 2019 Inactive This refill negates all other refills of this medication cetirizine 10 mg tablet RxNorm: 1613689 1 Tablet(s) PO daily 06/26/20 19 2019 Inactive This refill negates all other refills of this medication. Please do not auto refill levothyroxine 50 mcg tablet RxNorm: 186175 1 Tablet(s) PO daily 06/26/20 19 2019 Inactive This refill negates all other refills of this medication diclofenac sodium 75 mg tablet,delayed release RxNorm: 712704 1 Tablet(s) PO BID 06/26/20 19 2019 Inactive This refill negates all other refills of this medication ranitidine 150 mg tablet RxNorm: 587371 1 Tablet(s) PO BID 06/26/20 19 2018 Inactive This refill negates all other refills of this medication Calcium 600-D3 Plus (mag-zinc) 600 mg calcium-800 unit-50 mg tablet RxNorm: 1 Tablet(s) PO daily take an additonal tablet for itching. 06/26/20 19 2018 Inactive This refill negates all other refills of this medication albuterol sulfate 2.5 mg/3 mL (0.083 %) solution for nebulization RxNorm: 767590 1 Vial INH QID 06/26/20 19 2018 Inactive 60/box. This refill negates all other refills of this medication. Please do not fill early. Please do not auto refill. lisinopril 2.5 mg tablet RxNorm: 040587 1 Tablet(s) PO daily 06/21/20 19 2019 Inactive gabapentin 300 mg capsule RxNorm: 931374 1 Capsule(s) PO TID 06/21/20 19 2019 Inactive atorvastatin 20 mg tablet RxNorm: 036695 1 Tablet(s) PO QHS 06/07/20 19 2018 Inactive This refill negates all other refills of this medication TRUEplus Lancets 30 gauge RxNorm: 1 Lancets Miscellaneous QAM 05/29/20 19 2018 Inactive 100/box gabapentin 300 mg capsule RxNorm: 670848 1 Capsule(s) PO TID 05/03/20 19 2018 Inactive Flintstones Complete (iron) 18 mg iron chewable tablet RxNorm: 1 Tablet(s) PO daily 04/04/202021 Inactive This refill negates all other refills of this medication gabapentin 300 mg capsule RxNorm: 776410 1 Capsule(s) PO TID as needed 02/01/20 19 2018 Inactive True Metrix Glucose Test Strip RxNorm: 1 Test Strips Miscellaneous QAM 02/01/20 19 2018 Inactive 100/container Alcohol Prep Pads RxNorm: 857215 1 Patch TOP QAM 02/01/20 19 2018 Inactive TRUEplus Lancets 30 gauge RxNorm: 1 Lancets Miscellaneous QAM 02/01/20 19 2018 Inactive 100/box lisinopril 2.5 mg tablet RxNorm: 703719 1 Tablet(s) PO daily 12/28/19 19 2018 Inactive ranitidine 150 mg tablet RxNorm: 343155 1 Tablet(s) PO BID 10/21/192018 Inactive This refill negates all other refills of this medication albuterol sulfate 2.5 mg/3 mL (0.083 %) solution for nebulization RxNorm: 952720 1 Vial INH QID 10/21/19 19 2018 [...] this medication gabapentin 300 mg capsule RxNorm: 251709 1 Capsule(s) PO TID as needed 10/21/19 19 2018 Inactive atorvastatin 20 mg tablet RxNorm: 103698 1 Tablet(s) PO QHS 10/21/19 19 2018 Inactive This refill negates all other refills of this medication trazodone 50 mg tablet RxNorm: 148210 1 Tablet(s) PO QHS 10/21/19 19 2018 Inactive This refill negates all other refills of this medication Ventolin HFA 90 mcg/actuation aerosol inhaler RxNorm: 713640 2 Puff(s) INH QID 10/21/19 19 2018 [...] this medication Singulair 10 mg tablet RxNorm: 590226 1 Tablet(s) PO daily 10/21/19 19 2018 Inactive This refill negates all other refills of this medication buspirone 7.5 mg tablet RxNorm: 674803 1 Tablet(s) PO BID 10/21/19 19 2018 Inactive This refill negates all other refills of this medication diclofenac sodium 75 mg tablet,delayed release RxNorm: 624568 1 Tablet(s) PO BID 10/21/19 19 2018 Inactive This refill negates all other refills of this medication hydrochlorothiazide 12.5 mg tablet RxNorm: 893293 1 Tablet(s) PO QAM 10/21/19 19 2018 Inactive metoprolol succinate ER 50 mg tablet,extended release 24 hr RxNorm: 809683 1 Tablet(s) PO daily 10/21/19 19 2018 Inactive This refill negates all other refills of this medication levothyroxine 50 mcg tablet RxNorm: 930904 1 Tablet(s) PO daily 10/21/19 19 2018 Inactive This refill negates all other refills of this medication cetirizine 10 mg tablet RxNorm: 0783830 1 Tablet(s) PO daily 10/21/19 19 2018 Inactive This refill negates all other refills of this medication. Please do not auto refill Flintstones Complete (iron) 18 mg iron chewable tablet RxNorm: 1 Tablet(s) PO daily 10/21/19 19 2018 Inactive This refill negates all other refills of this medication buspirone 7.5 mg tablet RxNorm: 816335 1 Tablet(s) PO BID 10/12/19 19 2018 Inactive cetirizine 10 mg tablet RxNorm: 1557369 1 Tablet(s) PO daily 09/28/20 18 2018 Inactive Guaiasorb DM 10 mg-100 mg/5 mL oral liquid RxNorm: 096480 10 Milliliter(s) PO As needed every 4 hr 09/24/20 18 2018 Inactive Vicks Vaporub 4.7 %-1.2 %-2.6 % topical ointment RxNorm: 7306086 1 Application TOP TID 09/24/20 18 2018 Inactive levmetamfetamine 50 mg nasal inhaler RxNorm: 1 Unit(s) NASAL Q3-4H 09/24/20 18 2017 Inactive sertraline 50 mg tablet RxNorm: 433442 1 Tablet(s) PO daily 09/09/20 18 2018 Inactive Please note dose trazodone 50 mg tablet RxNorm: 347178 1 Tablet(s) PO QHS 09/06/20 18 2018 Inactive sertraline 50 mg tablet RxNorm: 870823 1 Tablet(s) PO daily 09/06/20 18 2017 Inactive amoxicillin 500 mg tablet RxNorm: 836712 1 Tablet(s) PO Q12H 08/31/20 18 2017 Inactive albuterol sulfate 2.5 mg/3 mL (0.083 %) solution for nebulization RxNorm: 161275 1 Vial INH QID 08/10/20 18 2018 Inactive 60/box. Please do not fill early. Please do not auto refill. Prozac 10 mg capsule RxNorm: 599439 1 Capsule(s) PO daily 08/09/20 18 2017 Inactive buspirone 7.5 mg tablet RxNorm: 767157 1 Tablet(s) PO BID 08/09/20 18 2018 Inactive gabapentin 300 mg capsule RxNorm: 136737 1 Capsule(s) PO TID as needed 08/01/20 18 2018 Inactive hydrochlorothiazide 12.5 mg tablet RxNorm: 671713 1 Tablet(s) PO QAM 08/01/20 18 2018 Inactive ranitidine 150 mg tablet RxNorm: 314227 1 Tablet(s) PO BID 08/01/20 18 2018 Inactive Macrobid 100 mg capsule RxNorm: 502280 1 Capsule(s) PO Q12H 06/21/20 18 2017 Inactive Singulair 10 mg tablet RxNorm: 561616 1 Tablet(s) PO daily 06/14/20 18 2018 Inactive Ventolin HFA 90 mcg/actuation aerosol inhaler RxNorm: 2138637 2 Puff(s) INH QID 06/14/20 18 2018 Inactive Singulair 10 mg tablet RxNorm: 403500 1 Tablet(s) PO daily 06/14/20 18 2017 Inactive buspirone 7.5 mg tablet RxNorm: 234286 1 Tablet(s) PO BID 06/14/20 18 2017 Inactive Prozac 10 mg capsule RxNorm: 545658 1 Capsule(s) PO daily 06/14/20 18 2017 Inactive Neilmed Pediatric Sinus Rinse Refill packet RxNorm: 1 Unit Dose NASAL PRN 05/31/20 18 2021 Inactive diclofenac sodium 75 mg tablet,delayed release RxNorm: 613385 1 Tablet(s) PO BID 05/31/20 18 2017 Inactive lisinopril 2.5 mg tablet RxNorm: 899086 1 Tablet(s) PO daily 05/31/20 18 2017 Inactive metoprolol succinate ER 50 mg tablet,extended release 24 hr RxNorm: 717885 1 Tablet(s) PO daily 05/31/20 18 2017 Inactive levothyroxine 50 mcg tablet RxNorm: 341985 1 Tablet(s) PO daily 05/31/20 18 2017 Inactive TRUEplus Lancets 30 gauge RxNorm: 1 Lancets Miscellaneous QAM 05/31/20 18 2017 Inactive 100/box Ventolin HFA 90 mcg/actuation aerosol inhaler RxNorm: 856987 2 Puff(s) INH QID 05/31/20 18 2017 Inactive Aleve 220 mg capsule RxNorm: 7909829 1 Capsule(s) PO BID 05/31/20 18 2018 Inactive ranitidine 150 mg tablet RxNorm: 975808 1 Tablet(s) PO BID 05/31/20 18 2017 Inactive gabapentin 300 mg capsule RxNorm: 963355 1 Capsule(s) PO TID as needed 05/31/20 18 2017 Inactive atorvastatin 20 mg tablet RxNorm: 716030 1 Tablet(s) PO QHS 05/31/20 18 2017 Inactive True Metrix Glucose Test Strip RxNorm: 1 Test Strips Miscellaneous QAM 05/31/20 18 2017 Inactive 50/container Calcium 600-D3 Plus 600 mg calcium-800 unit-50 mg tablet RxNorm: 1 Tablet(s) PO daily take an additonal tablet for itching. 05/31/20 18 2017 Inactive hydrochlorothiazide 12.5 mg tablet RxNorm: 806240 1 Tablet(s) PO QAM 05/31/20 18 2017 Inactive Flintstones Complete (iron) 18 mg iron chewable tablet RxNorm: 1 Tablet(s) PO daily 05/31/20 18 2017 Inactive d-mannose oral powder RxNorm: PO 18 2021 Inactive True Metrix Glucose Meter RxNorm: miscellaneous 08/17/20 19 2018 Inactive sertraline 50 mg tablet RxNorm: 956451 1 Tablet(s) PO daily 11/28/19 20 2019 Inactive loperamide 2 mg tablet RxNorm: 982343 oral 09/29/202018 Inactive Symbicort 160 mcg-4.5 mcg/actuation HFA aerosol inhaler RxNorm: 0839714 2 Puff(s) INH BID 08/17/202018 Inactive Medication Administered No Medication Administered data Results Observation Observation Code Item Item Code Result Date Service Location PROTEIN E-PHORESIS 61667 SPE Albumin 2862-1 4.11 g/dL [facility] [address] [place] [address] PROTEIN E-PHORESIS 21061 SPE Alpha 1 2865-4 0.19 g/dL [facility] [address] [place] [address] PROTEIN E-PHORESIS 60569 SPE Alpha 2 2868-8 0.76 g/dL [facility] [address] [place] [address] PROTEIN E-PHORESIS 84447 SPE Beta 1 2871-2 0.52 g/dL [facility] [address] [place] [address] PROTEIN E-PHORESIS 04763 SPE Beta 2 2871-2 0.39 g/dL 021 [facility] [address] [place] [address] PROTEIN E-PHORESIS 09098 SPE Gamma 2874-6 0.73 g/dL 0 021 [facility] [address] [place] [address] PROTEIN E-PHORESIS 77150 SPE Pathology Consult 86101-1 Normal pattern.Hayder Costa MD (Clinical Pathologist ) 021 [facility] [address] [place] [address]12 IMMUNOFIXATION (CHANTE) 83487 Serum IgM Band 76314-4 Absent [facility] [address] [place] [address] IMMUNOFIXATION (CHANTE) 43158 Serum IgG Band 24556-9 Absent [facility] [address] [place] [address] IMMUNOFIXATION (CHANTE) 57849 Serum IgA Band 72168-4 Absent 021 [facility] [address] [place] [address] 48990 IMMUNOFIXATION (CHANTE) 18428 Serum Laramie Band 17781-5 Absent [facility] [address] [place] [address] IMMUNOFIXATION (CHANTE) 10200 Serum Lambda Band 28951-2 Absent [facility] [address] [place] [address] IMMUNOFIXATION (CHANTE) 69741 CHANTE Pathology Consult 23616-8 Negative serum Immunofixat ion. Meet Costa MD (Clinical Pathologist ) [facility] [address] [place] [address] Hepatitis panel 29176 Hepatitis A IgM (Acute) 01321-1 Non-reactiv e (Negative) [facility] [address] [place] [address] Hepatitis panel 16191 Hepatitis B Surface Antigen 5195-3 Non-Reactiv e (Negative) [facility] [address] [place] [address] Hepatitis panel 94893 Hepatitis B Core Antibody (IgM) 80427-0 Non-Reactiv e (Negative) [facility] [address] [place] [address] Hepatitis panel 55886 Hepatitis C IgG Antibody 70445-7 Non-Reactiv e (Negative) [facility] [address] [place] [address] IGA [id number] IGA 2458-8 158 mg/dL [facility] [address] [place] [address] IGM 73143x3 IGM 2472-9 116 mg/dL [facility] [address] [place] [address] IGG 57630f4 IGG 2465-3 904 mg/dL [facility] [address] [place] [address] CHEM 14 (METABOLIC PANEL) 45429 Glucose 2345-7 85 mg/dL [facility] [address] [place] [address] CHEM 14 (METABOLIC PANEL) 26704 BUN 3094-0 14 mg/dL 021 [facility] [address] [place] [address] CHEM 14 (METABOLIC PANEL) 15796 Creatinine 2160-0 0.7 mg/dL 021 [facility] [address] [place] [address] CHEM 14 (METABOLIC PANEL) 51713 BUN/Creat Ratio 3097-3 19.6 021 [facility] [address] [place] [address] CHEM 14 (METABOLIC PANEL) 82110 GFR Estimated 60425-4 93 mL/min/1.73 m2 021 [facility] [address] [place] [address] CHEM 14 (METABOLIC PANEL) 69986 GFR Estimated for Americans 72252-3 112 mL/min/1.73 m2 021 [facility] [address] [place] [address] CHEM 14 (METABOLIC PANEL) 75829 Sodium 2951-2 143 mmol/L 021 [facility] [address] [place] [address] CHEM 14 (METABOLIC PANEL) 50325 Potassium 2823-3 4.0 mmol/L 021 [facility] [address] [place] [address]79 CHEM 14 (METABOLIC PANEL) 39869 Chloride 2075-0 107 mmol/L 021 [facility] [address] [place] [address] 84745 CHEM 14 (METABOLIC PANEL) 10185 Total CO2 2028-9 27 mmol/L 021 [facility] [address] [place] [address] 28717 CHEM 14 (METABOLIC PANEL) 56818 Anion Gap 1863-0 13.0 mEq/L 021 [facility] [address] [place] [address] 57874 CHEM 14 (METABOLIC PANEL) 99923 Calculated Serum Osmolality 57823-0 296 mOsm/kg 021 [facility] [address] [place] [address] 13094 CHEM 14 (METABOLIC PANEL) 00666 Albumin 60881-8 3.4 g/dL 021 [facility] [address] [place] [address] 60045 CHEM 14 (METABOLIC PANEL) 50439 Total Protein 2885-2 6.7 g/dL 021 [facility] [address] [place] [address] CHEM 14 (METABOLIC PANEL) 08025 Globulin 2336-6 3.3 g/dL 021 [facility] [address] [place] [address] 77275 CHEM 14 (METABOLIC PANEL) 14624 Albumin/Globul in Ratio 1759-0 1.0 021 [facility] [address] [place] [address] 46311 CHEM 14 (METABOLIC PANEL) 87542 ALK PHOS 6768-6 228.00 U/L 021 [facility] [address] [place] [address] CHEM 14 (METABOLIC PANEL) 97431 SGOT/AST 1920-8 49 U/L 021 [facility] [address] [place] [address] CHEM 14 (METABOLIC PANEL) 86181 SGPT/ALT 1743-4 157 U/L 021 [facility] [address] [place] [address] CHEM 14 (METABOLIC PANEL) 43213 Total Bilirubin 1975-2 0.3 mg/dL 021 [facility] [address] [place] [address] CHEM 14 (METABOLIC PANEL) 37959 Calcium 03467-4 9.1 mg/dL 021 [facility] [address] [place] [address] CHEM 14 (METABOLIC PANEL) 78186 Corrected Calcium 43090-1 9.7 mg/dL 021 [facility] [address] [place] [address] VITAMIN B-12 60085 Vitamin B12 2132-9 383 pg/mL 01/30 021 [facility] [address] [place] [address] 52357 TSH 49411 TSH 08491-6 1.830 uIU/mL 021 [facility] [address] [place] [address] COMPLETE CBC W/ DIFF WBC 55838 WBC 6690-2 7.5 K/ul 021 [facility] [address] [place] [address] 25455 COMPLETE CBC W/ DIFF WBC 44897 RBC 789-8 4.08 M/uL 021 [facility] [address] [place] [address] 07744 COMPLETE CBC W/ DIFF WBC 38728 Hemoglobin 718-7 11.4 g/dL 021 [facility] [address] [place] [address] COMPLETE CBC W/ DIFF WBC 02675 Hematocrit 4544-3 34.6 % 021 [facility] [address] [place] [address] COMPLETE CBC W/ DIFF WBC 45663 MCV 787-2 84.7 fL 021 [facility] [address] [place] [address] COMPLETE CBC W/ DIFF WBC 25657 MCH 785-6 27.9 pg 021 [facility] [address] [place] [address] COMPLETE CBC W/ DIFF WBC 66367 MCHC 786-4 33.0 g/dL 021 [facility] [address] [place] [address] COMPLETE CBC W/ DIFF WBC 59497 RDW 788-0 14.3 % 021 [facility] [address] [place] [address] COMPLETE CBC W/ DIFF WBC 74042 Platelet Count 777-3 322 K/uL 021 [facility] [address] [place] [address] COMPLETE CBC W/ DIFF WBC 33526 MPV 61936-5 8.9 fL 021 [facility] [address] [place] [address] 24233 COMPLETE CBC W/ DIFF WBC 97495 Neutrophils % 770-8 46.6 % 021 [facility] [address] [place] [address] 45159 COMPLETE CBC W/ DIFF WBC 59523 Lymphocytes % 736-9 29.7 % 021 [facility] [address] [place] [address] 64906 COMPLETE CBC W/ DIFF WBC 68486 Monocytes % 5905-5 6.4 % 021 [facility] [address] [place] [address] 31510 COMPLETE CBC W/ DIFF WBC 62305 Eosinophils % 713-8 16.7 % 021 [facility] [address] [place] [address] 09266 COMPLETE CBC W/ DIFF WBC 69357 Basophils% 706-2 0.6 % 021 [facility] [address] [place] [address] 48044 COMPLETE CBC W/ DIFF WBC 45443 Absolute Neutrophil 751-8 3495 /ul 021 [facility] [address] [place] [address] 59387 COMPLETE CBC W/ DIFF WBC 99704 Absolute Lymphocyte 74443-8 2228 /ul 021 [facility] [address] [place] [address] 77206 COMPLETE CBC W/ DIFF WBC 47255 Absolute Monocyte 742-7 480 /ul 021 [facility] [address] [place] [address] 57030 COMPLETE CBC W/ DIFF WBC 69390 Absolute Eosinophil 711-2 1253 /ul 021 [facility] [address] [place] [address] 46807 COMPLETE CBC W/ DIFF WBC 14856 Absolute Basophil 704-7 45 /ul 021 [facility] [address] [place] [address] PREALBUMIN 86763 Prealbumin 23186-7 22 mg/dL 021 [facility] [address] [place] [address] FOLATE 22726 Folate 2284-8 12.0 ng/mL 021 [facility] [address] [place] [address] [id number]-[id number] N 4548-4 Glyco HGB A1C 56364-8 5.3 % 021 [facility] [address] [place] [address] [id number]-[id number] N 4548-4 eAG 23842-5 105 mg/dL 021 [facility] [address] [place] [address] Procedures Procedure Codes Date Mini Mental State Exam CPT-4: DMMA 1 Mini Mental Status Exam Where are you?/What is the name of this place?/1 point, Where are you?/What floor are you on now?/1 point, Where are you?/What state are you in?/1 point, Where are you?/What county are you in?/1 point, Where are you?/What city are you in?/1 point, What is the date?/What year is it?/1 point, What is the date?/What season is it?/1 point, What is the date?/What month is it?/1 point, What is the date?/What is the day of the week?/1 point, What is the date?/What is the date today?/1 point, Registration/Patient Task: Repeat Apple /1 point, Registration/Patient Task: Repeat Table /1 point, Registration/Patient Task: Repeat Marley /1 point, Attention and Calculation/Patient Task: Spell World backwards (1 point for each letter)/3 points, Recall/Do you recall the names of the three objects? (1 point for each correct answer)/3 points, Language/Patient Task: Point to watch and ask them to provide the name/1 point, Language/Patient Task: Point to pen and ask them to provide the name/1 point, Language/Patient Task: Repeat statement No ifs, ands or buts /1 point, Language/Patient Task: Take a piece of paper in right hand/1 point, Language/Patient Task: Fold the piece of paper in half/1 point, Language/Patient Task: Set the piece of paper on the floor/1 point, Language/Patient Task: Read and perform task written on paper, Close Your Eyes /1 point, Language/Patient Task: Write a sentence on paper/1 point, Construction/Patient Task: Copy the interlocking five sided figure design/1 point, Total Points Accrued: CPT-4: DMMAUnknown 01/29/2021 Annual Wellness Visit (Subsequent Visit) CPT-4: G0439 01/13/2021 Advanced Care Planning CPT-4: VACP Fall Risk Assessment SNOMED CT: 12434852 4 CPT-4: DFRA 01/13/2021 Perry Fany Assessment CPT-4: DSWA 12/01 Urinalysis, dip stick CPT-4: 95968 09/24/2020 Patient Health Questionnaire CPT-4: DPHQ Electrocardiogram CPT-4: 78858 05/14/2020 Tobacco Assessment/Screening CPT-4: TCA Fall Risk Assessment SNOMED CT: 88969050 4 CPT-4: DFRA 01/01/2020 Functional Assessment CPT-4: DFA 01/01/2020 Perry Fany Assessment CPT-4: DSWA 11/04 Patient Health Questionnaire CPT-4: DPHQ Perry Fany Assessment CPT-4: DSWA 10/03 Hypertension CPT-4: HTN 10/17/2019 Fall Risk Assessment SNOMED CT: 81185718 4 CPT-4: DFRA 09/19/2019 Functional Assessment CPT-4: DFA 09/19/2019 Urinalysis, dip stick CPT-4: 49486 06/21/2019 Tobacco Assessment/Screening CPT-4: TCA Patient Health Questionnaire CPT-4: DPHQ AHA/REBECCA Classification Assessment CPT-4: DAHA 04/25/2019 Controlled Substance Report CPT-4: CTRSU 04/03 Urinalysis, dip stick CPT-4: 76418 03/28/2019 Urinalysis, dip stick CPT-4: 76894 03/28/2019 V4B-Zgpmzhjcstslerb CPT-4: 41352 Unknown T5C-Fdklondpnrcjttj CPT-4: 71876 Unknown X2R-Qbkzpmwnhqgfarq CPT-4: 17461 Unknown W7U-Xzlwlnizshsskdr CPT-4: 15523 Unknown C5I-Codbnnpsjyvlmmf CPT-4: 92474 Unknown N8A-Njjgjrewuewtzwc CPT-4: 42666 Unknown T5G-Ahfaefbfgsoqull CPT-4: 59864 Unknown Gynecology Referral SNOMED CT: 237411554 CPT-4: R14 Unknown Vital Signs Date Vital 01/29/2021 Blood Pressure 1: 128/70 Code: 8480-6 BMI: 53.3 Code: 80872-3 Heart Rate 1: 75 bpm Height: 4'11 Code: 8302-2 Respiratory Rate: 20 bpm SpO2: 95% Temperature: 37.1 (C) / 98.7 (F) Weight: 264 lbs Code: 08456-8 Reason For Visit Reason For Visit Effective Dates Notes diabetes mellitus 01/29/2021 gastroesophageal reflux disease 01/29/2021 Interim health update 01/29/2021 Encounters Encounter Performer Location Location Address Codes Magdi e HOME VISIT EST PATIENT Diagnosis: Hypertensive heart disease with heart failure[ICD10: I11.0] Diagnosis: Type 2 diabetes mellitus with peripheral neuropathy[ICD10: E11.42] Diagnosis: Chronic kidney disease, stage 2 (mild)[ICD10: N18.2] Diagnosis: History of bladder surgery[ICD10: Z98.890] Diagnosis: Urinary retention with incomplete bladder emptying[ICD10: R33.9] Diagnosis: GERD (gastroesophageal reflux disease)[ICD10: K21.9] [facility] [address] [place] [address]251 CPT-4: 55371 01/29/2021 Plan of Care Planned Activity Notes Codes Status Date Patient Education: Patient Medication Summary Completed 01/29/2021 Patient Education: Diabetes Complete d 01/29/2021 Appointment: Anna Culver WPtel: [address] [place] [address] ETV 01/13/2021 Appointment: Anna Culver WPtel: [address] [place] [address] E410 12/17/2020 Appointment: Chivo Bishop WPtel: [phone] [place] [address] [place] ETV 11/28/2020 Appointment: Anna Culver WPtel: [phone] [place] [address] ETV 11/24/2020 Appointment: Anna Culver WPtel: [address] [place] [address] [place] E410 10/29/2020 Appointment: Anna Culver WPtel: [address] [place] [address] E410 09/24/2020 Appointment: Anna Culver WPtel: [address] [place] [address] ETV 08/26/2020 Appointment: Anna Culver WPtel: [address] [place] [address] ETV 08/19/2020 Appointment: Anna Culver WPtel: [address] [place] [address] [place] ETV 07/22/2020 Appointment: Anna Culver WPtel: [address] [place] [address] [place] ETV 07/08/2020 Appointment: Gianna [facility]: [facility] [address] [id number] [place] ECHO 07/02/2020 Appointment: Anna Culver WPtel: [address] [place] [address] [place] E452 06/11/2020 Appointment: Anna Culver WPtel: [address] [place] [address] E452 05/14/2020 Appointment: Anna Culver WPtel: [address] [place] [address] [place] E452 04/17/2020 Appointment: Anna Culver WPtel: [address] E452 03/21/2020 Appointment: Anna Culver WPtel: [address] [place] [address] E452 02/14/2020 Appointment: Anna Culver WPtel: [address] [place] [address] E452 01/24/2020 Appointment: Anna Culver WPtel: [address] [place] [address] E452 01/01/2020 Appointment: Anna Culver WPtel: [address] [place] [address] E452 11/28/2019 Appointment: Anna Culver WPtel: [address] [place] [address] E452 10/17/2019 Appointment: Anna Culver WPtel: [address] [place] [address] E452 09/19/2019 Appointment: Sudha Hernadez WPtel: [address] [facility] [address] [id number] E452 07/04/2019 Appointment: Sudha Hernadez WPtel: [address] [facility] [address] [id number] E452 06/21/2019 Appointment: Charlene Oropeza WPtel: [address] [facility] [address] [id number] E452 05/24/2019 Appointment: Mallory Delgado E452 04/27/2019 Appointment: Charlene Oropeza WPtel: [address] [facility] [address] [id number] E452 04/25/2019 Appointment: Rasta Palafox WPtel: [address] [facility] [address] [id number] E452 03/28/2019 Appointment: Rasta Palafox WPtel: [address] [facility] [id number] E452 02/14/2019 Appointment: Rasta Palafox WPtel: [address] [facility] [id number] E452 01/31/2019 Appointment: Rasta Palafox WPtel: [address] [facility] [id number] E420 12/27/2018 Referral: Pending Gynecology Referral Information Referral Processed Referral: Pending Pulmonolog y Referral Information Referral Processed Referral: Pending Psychiatry Referral Information Referral Initiated Referral: Pending Respirator y Services Referral Information Referral Initiated Referral: Pending Ophthalmology Referral Information Referral Initiated Referral: [facility] WPtel: [address] [place] [address] Criminalist placed a call out to the patient to notify her that it has been recommended that she be seen by 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 Patient agreed to be seen, does not have a provider of choice and no transportation issues. Criminalist faxed referral and clinical notes to [facility] in [place], [place] near the patient's home. Patient to [...] seen and prefers a provider in the [place] or [place] area. Criminalist placed a call out to everyone listed in the area and the only location that was able to accept the patient's insurance was [place] [address] [place] [address] and spoke with Maylin. Maylin asked that the patient's referral, face sheet and visit notes be faxed to . Criminalist faxed over requested documents. Patient appointment confirmation letter generated and mailed to her home address. Patient to call to schedule an appointment. Processed Referral: [facility] WPtel: [address] [facility] [address] [place], [place] [id number] Patient notified that it has been advised that she be seen by Neurology. Patient agreed to be seen and prefers to be seen by a provider in the [place], [place] area. Patient denies any concerns with transportation, and prefers to schedule her own appointment. Criminalist placed a call out to [facility] and spoke with Neeraj P: who confirmed that their office is able to accept new patients and the patient's insurance. After confirming the providers fax number, remote mortgage underwriter faxed over the patient's referral, [...]
--- OUTSIDE RECORDS SUMMARY | 2021-04-14 20:00 | XMS_ITS | CCD ---
Author Name Chivo Bishop [place] Address [address] [facility] [address] [place] [address] Phone Organization [facility] Phone Care Team Providers Care Crm Marketing Specialist Name Role Phone Palomo KING, Anna Primary Care Provider Unav ailable Unavailable Chronic Care Management Unavaila ble Summary Purpose DataExchange Insurance Providers Payer name Policy type / Coverage type Covered green party ID Effective Begin Date Effective End Date SUKI MAYO [id number] Unknown Unknown Family history Mother Diagnosis Age [...] Unknown Disability 05/31/[address]: 690720859 Has never s moked or chewed tobacco 05/31/[address]: 368453382 Never drinks alco hol 05/31/2018 Has the patient ever used illegal drugs? Unknown Has never used illegal drugs 05/31/2018 DNR Order/ Advanced Directive Unknown Full Code 05/31/2018 Allergies, Adverse Reactions, Alerts Substance Reaction Codes Entered Date Inactivated Date Status OxyContin itch, RxNorm: 343718 01/13/2021 No Inactive Da te Active *No known food allergies Unknown 09/06/2018 No I nactive Date Active Methylprednisolone hives RxNorm: 6902 09/06/2018 No Inac tive Date Active Problems Condition Codes Effective Dates Condition St atus Adjustment disorder with mix ed anxiety and depressed mood ICD-10: F43.23 ICD-9: 309.28 09/05/2018 Active Hypertensive heart disease w ith heart failure ICD-10: I11.0 ICD-9: 402.91 04/25/2019 Active Post-traumatic stress disord er, unspecified ICD-10: F43.10 ICD-9: 309.81 09/05/2018 Active Type 2 diabetes mellitus wit h peripheral neuropathy ICD-10: E11.42 ICD-9: 250.60 11/28/2019 Active Anorexia ICD-10: R63.0 ICD-9: 783.0 12/17/2020 Active Blister ICD-10: T14.8XXA ICD-9: 919.2 03/24/2021 Active Obstructive sleep apnea (chio lt) (pediatric) ICD-10: G47.33 ICD-9: 327.23 06/21/2019 Active Encounter for screening for tobacco use ICD-10: Z01.89 ICD-9: V72.85 01/01/2020 Active Elevated liver enzymes ICD-10: R74.8 ICD-9: 790.5 01/29/2021 Active Hyperlipidemia, unspecified ICD-10: E78. 5 ICD-9: 272.4 05/30/2018 Active Chronic kidney disease, stag e 2 (mild) ICD-10: N18.2 ICD-9: 585.2 10/29/2020 Active GERD (gastroesophageal reflu x disease) ICD-10: K21.9 ICD-9: 530.81 09/07/2019 Active History of bladder surgery ICD-10: Z98.8 90 ICD-9: V45.89 01/13/2021 Active Urinary retention with incom plete bladder emptying ICD-10: R33.9 ICD-9: 788.21 01/13/2021 Active (Z00.01-V70.0) Encounter for general adult medical examination with abnormal findings ICD-10: Z00.01 ICD-9: V70.0 01/13/2021 Active (Z13.31-V79.0) Encounter for screening for depression ICD-10: Z13.31 ICD-9: V79.0 01/13/2021 Active Encounter for immunization ICD-10: Z23 ICD-9: V04.81 06/11/2020 Inactive Essential (primary) hypertension ICD-10: I10 ICD-9: 401.9 10/03/2018 Inactive Apnea, not elsewhere classified ICD-10: R06.81 ICD-9: [...] ICD-10: R51 ICD-9: 784.0 10/03/2018 Inactive Other adjunct faculty 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 (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 ICD-10: Z79.899 ICD-9: V58.69 04/25/2019 Inactive Type 2 diabetes mellitus wit hout complications ICD-10: E11.9 ICD-9: 250.00 10/03/2018 Inactive Wheezing ICD-10: R06.2 ICD-9: 786.07 08/08/2018 Inactive Abnormal urine finding ICD-10: R82.90 ICD-9: 791.9 09/24/2020 Resolved Abrasion of toe ICD-10: S90.416A ICD-9: 917.0 02/14/2020 Resolved Acute upper respiratory infe ction, unspecified ICD-10: J06.9 ICD-9: 465.9 09/04/2019 Resolved [place] eye ICD-10: H10.029 ICD-9: 372.03 12/29/2019 Resolved Right wrist pain ICD-10: M25.531 ICD-9: 719.43 05/14/2020 Resolved Sinusitis ICD-10: J32.9 ICD-9: 473.9 11/07/2019 Resolved Superficial burn of multiple sites of right hand, subsequent encounter ICD-10: T23.191D ICD-9: V58.89 11/28/2020 Resolved Urinary tract infection ICD-10: N39.0 ICD-9: 599.0 10/01/2020 Resolved Polyneuropathy, unspecified ICD-10: G62. 9 ICD-9: 356.9 05/30/2018 Active Encounter for screening, unspecified ICD-10: Z13.9 ICD-9: V82.9 09/05/2018 Active (Z12.4-V76.2) Encounter for screening for malignant neoplasm of cervix ICD-10: Z12.4 ICD-9: V76.2 04/25/2019 Active Hypothyroidism, unspecified ICD-10: E03. 9 [...] unspecified ICD-10: R06.00 ICD-9: 786.09 02/08/2019 Active Abnormal electrocardiogram [ ECG] [EKG] ICD-10: R94.31 ICD-9: 794.31 05/30/2018 Active Edema, unspecified ICD-10: R60.9 ICD-9: 782.3 07/11/2018 Active alf (current) use of non-steroidal anti-inflammatories (NSAID) ICD-10: Z79.1 ICD-9: V58.64 06/13/2018 Active Medications Medication Codes Instructions Start Date Stop Date Status Fill Instructions omeprazole 20 mg capsule,delayed release RxNorm: 881158 1 Capsule(s) Oral every evening 04/03/20 21 2020 Inactive sertraline 100 mg tablet RxNorm: 272390 2 Tablet(s) Oral every day 03/13/20 21 2020 Inactive levothyroxine 50 mcg tablet RxNorm: 057274 TAKE (1) TABLET BY MOUTH DAILY 02/04/20 21 2020 Inactive metformin 500 mg tablet RxNorm: 514884 1 Tablet(s) Oral two times a day take with 500mg to equal 1000mg 01/14/20 21 2020 Inactive gabapentin 300 mg capsule RxNorm: 150414 TAKE 1 CAPSULE BY MOUTH THREE TIMES A DAY 01/14/20 21 2020 Inactive lisinopril 2.5 mg tablet RxNorm: 490065 TAKE 1 TABLET BY MOUTH DAILY 01/06/20 21 2020 Inactive gabapentin 300 mg capsule RxNorm: 327258 TAKE 1 CAPSULE BY MOUTH THREE TIMES A DAY 01/06/20 21 2020 Inactive Singulair 10 mg tablet RxNorm: 709119 TAKE (1) TABLET BY MOUTH DAILY 01/06/20 21 2020 Inactive metformin 1,000 mg tablet RxNorm: 320152 1 Tablet(s) Oral two times a day 01/06/20 21 2020 Inactive atorvastatin 40 mg tablet RxNorm: 565310 1 Tablet(s) Oral every day 12/06/19 21 2020 Inactive omeprazole 20 mg capsule,delayed release RxNorm: 872024 1 Capsule(s) Oral every evening 11/24/19 21 2020 Inactive famotidine 10 mg tablet RxNorm: 777257 1 Tablet(s) Oral every morning 11/24/19 21 2020 Inactive Alcohol Prep Pads RxNorm: 513036 USE EACH MORNING 10/14/19 21 2020 Inactive omeprazole 20 mg capsule,delayed release RxNorm: 170627 1 Capsule(s) Oral two times a day 10/13/19 21 2021 Inactive omeprazole 20 mg capsule,delayed release RxNorm: 708850 TAKE 1 CAPSULE BY MOUTH EVERY DAY 10/08/19 21 2021 Inactive Macrobid 100 mg capsule RxNorm: 637303 1 Capsule(s) Oral every 12 hours with food 10/01/202020 Inactive omeprazole 20 mg capsule,delayed release RxNorm: 642837 1 Capsule(s) Oral two times a day 09/24/20 20 2021 Inactive metformin 1,000 mg tablet RxNorm: 107778 1 Tablet(s) Oral two times a day 08/19/202020 Inactive start on September 11, 2020 metformin 500 mg tablet RxNorm: 380790 1 Tablet(s) Oral two times a day take with 500mg to equal 1000mg 08/19/20 20 2019 Inactive gabapentin 300 mg capsule RxNorm: 221345 TAKE 1 CAPSULE BY MOUTH THREE TIMES DAILY 07/11/20 20 2020 Inactive cetirizine 10 mg tablet RxNorm: 7363682 TAKE (1) TABLET BY MOUTH DAILY 07/11/20 20 2020 Inactive metformin 500 mg tablet RxNorm: 262443 1 Tablet(s) Oral two times a day 07/08/20 20 2019 Inactive loperamide 2 mg tablet RxNorm: 043524 1 Tablet(s) Oral as needed take one tablet after each loose stool, maximum of 8 tablets in 24 hours 06/24/202021 Inactive Sudafed 12 Hour 120 mg tablet,extended release RxNorm: 8752278 TAKE 1 TABLET BY MOUTH EVERY 12 HOURS NEEDED 06/11/20 20 2019 Inactive hydrochlorothiazide 25 mg tablet RxNorm: 171555 TAKE (1) TABLET BY MOUTH EVERY DAY 06/11/202019 Inactive omeprazole 20 mg capsule,delayed release RxNorm: 524061 TAKE 1 CAPSULE BY MOUTH EVERY DAY 05/14/202020 Inactive metformin 500 mg tablet RxNorm: 812423 1 Tablet(s) Oral every day 05/12/20 20 2019 Inactive True Metrix Glucose Test Strip RxNorm: 1 Test Strips Miscellaneous two times a day as needed 04/17/20 No Stop Date Active metformin 500 mg tablet RxNorm: 822757 1 Tablet(s) Oral every day 04/17/20 20 2019 Inactive diclofenac sodium 75 mg tablet,delayed release RxNorm: 822967 1 Tablet(s) PO BID 04/14/20 20 2021 Inactive This refill negates all other refills of this medication Sudafed 12 Hour 120 mg tablet,extended release RxNorm: 1818506 TAKE 1 TABLET BY MOUTH EVERY 12 HOURS NEEDED 03/14/20 20 2019 Inactive True Metrix Glucose Test Strip RxNorm: 1 Test Strips Miscellaneous every morning 03/13/20 20 2019 Inactive 100/container True Metrix Glucose Test Strip RxNorm: 1 Test Strips Miscellaneous QAM 02/22/20 20 2019 Inactive 100/container loperamide 2 mg tablet RxNorm: 734794 1 Tablet(s) Oral as needed take one tablet after each loose stool, maximum of 8 tablets in 24 hours 02/22/20 20 2019 Inactive cetirizine 10 mg tablet RxNorm: 5845559 1 Tablet(s) PO daily 01/17/20 20 2019 Inactive loperamide 2 mg tablet RxNorm: 473703 1 Tablet(s) Oral as needed take one tablet after each loose stool, maximum of 8 tablets in 24 hours 01/17/20 20 2019 Inactive quetiapine 100 mg tablet RxNorm: 430152 1 Tablet(s) Oral every night at bedtime 01/17/20 20 2019 Inactive levothyroxine 50 mcg tablet RxNorm: 216738 1 Tablet(s) PO daily 01/17/20 20 2020 Inactive gabapentin 300 mg capsule RxNorm: 247056 1 Capsule(s) PO TID 01/17/20 20 2019 Inactive levothyroxine 50 mcg tablet RxNorm: 292719 1 Tablet(s) PO daily 01/15/20 20 2019 Inactive lisinopril 2.5 mg tablet RxNorm: 214232 1 Tablet(s) PO daily 01/15/20 20 2020 Inactive gabapentin 300 mg capsule RxNorm: 019665 1 Capsule(s) PO TID 01/15/20 20 2019 Inactive cetirizine 10 mg tablet RxNorm: 3298236 1 Tablet(s) PO daily 01/15/20 20 2019 Inactive Singulair 10 mg tablet RxNorm: 188407 1 Tablet(s) PO daily 01/15/20 20 2020 Inactive gentamicin 0.3 % eye drops RxNorm: 900141 1 Drop(s) ophthalmic (eye) four times a day 12/29/19 20 2019 Inactive gentamicin 0.3 % eye drops RxNorm: 042791 1 Drop(s) ophthalmic (eye) four times a day 12/29/19 20 2019 Inactive gentamicin 0.3 % eye drops RxNorm: 918604 1 Drop(s) ophthalmic (eye) four times a day 12/29/19 20 2019 Inactive hydrochlorothiazide 25 mg tablet RxNorm: 468560 1 Tablet(s) Oral every day 12/21/19 20 2019 Inactive Sudafed 12 Hour 120 mg tablet,extended release RxNorm: 7539602 TAKE (1) TABLET BY MOUTH EVERY 12 HOURS NEEDED 12/21/19 20 2019 Inactive loperamide 2 mg tablet RxNorm: 715122 1 Tablet(s) Oral as needed take one tablet after each loose stool, maximum of 8 tablets in 24 hours 12/11/19 20 2019 Inactive loperamide 2 mg tablet RxNorm: 206555 1 Tablet(s) Oral as needed take one tablet after each loose stool, maximum of 8 tablets in 24 hours 12/11/19 20 2019 Inactive atorvastatin 40 mg tablet RxNorm: 608862 1 Tablet(s) Oral every day 11/29/19 20 2020 Inactive quetiapine 100 mg tablet RxNorm: 653251 1 Tablet(s) Oral every night at bedtime 11/28/19 20 2019 Inactive sertraline 100 mg tablet RxNorm: 941083 1 Tablet(s) Oral 11/28/19 20 2019 Inactive omeprazole 20 mg capsule,delayed release RxNorm: 752063 1 Capsule(s) Oral every day 11/20/19 20 2019 Inactive amoxicillin 250 mg capsule RxNorm: 269057 1 Capsule(s) Oral three times a day 11/07/1922 11/12/ 2020 Inactive multivitamin with iron-mineral tablet RxNorm: 1 Tablet(s) Oral every day 10/29/19 20 2021 Inactive cetirizine 10 mg tablet RxNorm: 2108091 1 Tablet(s) PO daily 10/20/19 20 2019 Inactive This refill negates all other refills of this medication. Please do not auto refill Singulair 10 mg tablet RxNorm: 769845 1 Tablet(s) PO daily 10/20/19 20 2019 Inactive This refill negates all other refills of this medication gabapentin 300 mg capsule RxNorm: 333335 1 Capsule(s) PO TID 10/20/192019 Inactive lisinopril 2.5 mg tablet RxNorm: 700370 1 Tablet(s) PO daily 10/20/19 20 2019 Inactive levothyroxine 50 mcg tablet RxNorm: 602148 1 Tablet(s) PO daily 10/20/192019 Inactive This refill negates all other refills of this medication fenugreek seed extract 500 mg capsule RxNorm: 1 Capsule(s) Oral three times a day 10/17/19 20 2021 Inactive hydrochlorothiazide 25 mg tablet RxNorm: 086888 1 Tablet(s) Oral every day 10/17/19 20 2019 Inactive Alcohol Prep Pads RxNorm: 584209 1 Patch TOP QAM 10/16/19 20 2020 Inactive loperamide 2 mg tablet RxNorm: 729527 1 Tablet(s) Oral as needed take one [...] 2019 Inactive hydrochlorothiazide 25 mg tablet RxNorm: 027349 1 Tablet(s) Oral every day 09/19/20 19 2019 Inactive Sudafed 12 Hour 120 mg tablet,extended release RxNorm: 7462843 1 Tablet(s) Oral every 12 hours as needed 09/11/20 19 2018 Inactive omeprazole 20 mg capsule,delayed release RxNorm: 046471 1 Capsule(s) Oral every day 09/07/20 19 2019 Inactive Sudafed 12 Hour 120 mg tablet,extended release RxNorm: 8105773 1 Tablet(s) Oral every 12 hours as needed 09/04/20 19 2018 Inactive pantoprazole 40 mg tablet,delayed release RxNorm: 319906 1 Tablet(s) Oral every day 08/24/20 19 2018 Inactive discontinue any other H2Blkr. and PPI albuterol sulfate 2.5 mg/3 mL (0.083 %) solution for nebulization RxNorm: 271824 1 Vial Inhalation every four hours as needed as needed for dyspnea 08/17/20 19 2019 Inactive 60/box. This refill negates all other refills of this medication. Please do not fill early. Please do not auto refill. Symbicort 160 mcg-4.5 mcg/actuation HFA aerosol inhaler RxNorm: 1148638 2 Puff(s) INH BID 08/17/20 19 No Stop Date Active Alcohol Prep Pads RxNorm: 779073 1 Patch TOP QAM 08/17/20 19 2019 Inactive Ventolin HFA 90 mcg/actuation aerosol inhaler RxNorm: 837436 2 Puff(s) INH QID 08/09/20 19 2019 Inactive Please do not fill early. Please do not auto refill. This refill negates all other refills of this medication True Metrix Glucose Test Strip RxNorm: 1 Test Strips Miscellaneous QAM 08/09/20 19 2019 Inactive 100/container atorvastatin 40 mg tablet RxNorm: 637665 1 Tablet(s) Oral every day 10/02/2019 Inactive levmetamfetamine 50 mg nasal inhaler RxNorm: 1 Unit(s) NASAL Q3-4H Do not use more than every 3 hours or 8 times/24hours 06/26/20 19 2021 Inactive Please do not auto refill. This refill negates all other refills of this medication buspirone 7.5 mg tablet RxNorm: 722641 1 Tablet(s) PO BID 06/26/20 19 2020 Inactive This refill negates all other refills of this medication hydrochlorothiazide 12.5 mg tablet RxNorm: 434087 1 Tablet(s) PO QAM 06/26/20 19 2019 Inactive Ventolin HFA 90 mcg/actuation aerosol inhaler RxNorm: 110903 2 Puff(s) INH QID 06/26/20 19 2018 Inactive Please do not fill early. Please do not auto refill. This refill negates all other refills of this medication Singulair 10 mg tablet RxNorm: 579887 1 Tablet(s) PO daily 06/26/20 19 2019 Inactive This refill negates all other refills of this medication cetirizine 10 mg tablet RxNorm: 6138791 1 Tablet(s) PO daily 06/26/20 19 2019 Inactive This refill negates all other refills of this medication. Please do not auto refill levothyroxine 50 mcg tablet RxNorm: 622650 1 Tablet(s) PO daily 06/26/20 19 2019 Inactive This refill negates all other refills of this medication diclofenac sodium 75 mg tablet,delayed release RxNorm: 728547 1 Tablet(s) PO BID 06/26/20 19 2019 Inactive This refill negates all other refills of this medication ranitidine 150 mg tablet RxNorm: 215050 1 Tablet(s) PO BID 06/26/20 19 2018 Inactive This refill negates all other refills of this medication Calcium 600-D3 Plus (mag-zinc) 600 mg calcium-800 unit-50 mg tablet RxNorm: 1 Tablet(s) PO daily take an additonal tablet for itching. 06/26/20 19 2018 Inactive This refill negates all other refills of this medication albuterol sulfate 2.5 mg/3 mL (0.083 %) solution for nebulization RxNorm: 397969 1 Vial INH QID 06/26/20 19 2018 Inactive 60/box. This refill negates all other refills of this medication. Please do not fill early. Please do not auto refill. lisinopril 2.5 mg tablet RxNorm: 599558 1 Tablet(s) PO daily 06/21/20 19 2019 Inactive gabapentin 300 mg capsule RxNorm: 996098 1 Capsule(s) PO TID 06/21/20 19 2019 Inactive atorvastatin 20 mg tablet RxNorm: 166570 1 Tablet(s) PO QHS 06/07/20 19 2018 Inactive This refill negates all other refills of this medication TRUEplus Lancets 30 gauge RxNorm: 1 Lancets Miscellaneous QAM 05/29/20 19 2018 Inactive 100/box gabapentin 300 mg capsule RxNorm: 908685 1 Capsule(s) PO TID 05/03/20 19 2018 Inactive Flnickolas Complete (iron) 18 mg iron chewable tablet RxNorm: 1 Tablet(s) PO daily 04/04/20 19 2021 Inactive This refill negates all other refills of this medication gabapentin 300 mg capsule RxNorm: 069977 1 Capsule(s) PO TID as needed 02/01/20 19 2018 Inactive True Metrix Glucose Test Strip RxNorm: 1 Test Strips Miscellaneous QA 02/01/20 19 2018 Inactive 100/container Alcohol Prep Pads RxNorm: 247843 1 Patch TOP QAM 02/01/20 19 2018 Inactive TRUEplus Lancets 30 gauge RxNorm: 1 Lancets Miscellaneous QAM 02/01/20 19 2018 Inactive 100/box lisinopril 2.5 mg tablet RxNorm: 032875 1 Tablet(s) PO daily 12/28/19 19 2018 Inactive ranitidine 150 mg tablet RxNorm: 262020 1 Tablet(s) PO BID 10/21/19 19 2018 Inactive This refill negates all other refills of this medication albuterol sulfate 2.5 mg/3 mL (0.083 %) solution for nebulization RxNorm: 990728 1 Vial INH QID 10/21/19 19 2018 [...] this medication gabapentin 300 mg capsule RxNorm: 710972 1 Capsule(s) PO TID as needed 10/21/19 19 2018 Inactive atorvastatin 20 mg tablet RxNorm: 900823 1 Tablet(s) PO QHS 10/21/192018 Inactive This refill negates all other refills of this medication trazodone 50 mg tablet RxNorm: 059097 1 Tablet(s) PO QHS 10/21/192018 Inactive This refill negates all other refills of this medication Ventolin HFA 90 mcg/actuation aerosol inhaler RxNorm: 775230 2 Puff(s) INH QID 10/21/192018 Inactive Please do not fill early. Please do not auto refill. This refill negates all other refills of this medication Calcium 600-D3 Plus 600 mg calcium-800 unit-50 mg tablet RxNorm: 1 Tablet(s) PO daily take an additonal tablet for itching. 10/21/192018 Inactive This refill negates all other refills of this medication Singulair 10 mg tablet RxNorm: 384114 1 Tablet(s) PO daily 10/21/19 19 2018 Inactive This refill negates all other refills of this medication buspirone 7.5 mg tablet RxNorm: 187971 1 Tablet(s) PO BID 10/21/192018 Inactive This refill negates all other refills of this medication diclofenac sodium 75 mg tablet,delayed release RxNorm: 610675 1 Tablet(s) PO BID 10/21/19 19 2018 Inactive This refill negates all other refills of this medication hydrochlorothiazide 12.5 mg tablet RxNorm: 388684 1 Tablet(s) PO QAM 10/21/19 19 2018 Inactive metoprolol succinate ER 50 mg tablet,extended release 24 hr RxNorm: 151882 1 Tablet(s) PO daily 10/21/19 19 2018 Inactive This refill negates all other refills of this medication levothyroxine 50 mcg tablet RxNorm: 516765 1 Tablet(s) PO daily 10/21/19 19 2018 Inactive This refill negates all other refills of this medication cetirizine 10 mg tablet RxNorm: 9493078 1 Tablet(s) PO daily 10/21/19 19 2018 Inactive This refill negates all other refills of this medication. Please do not auto refill Flintstones Complete (iron) 18 mg iron chewable tablet RxNorm: 1 Tablet(s) PO daily 10/21/19 19 2018 Inactive This refill negates all other refills of this medication buspirone 7.5 mg tablet RxNorm: 994075 1 Tablet(s) PO BID 10/12/19 19 2018 Inactive cetirizine 10 mg tablet RxNorm: 5528954 1 Tablet(s) PO daily 09/28/20 18 2018 Inactive Guaiasorb DM 10 mg-100 mg/5 mL oral liquid RxNorm: 432533 10 Milliliter(s) PO As needed every 4 hr 09/24/20 18 2018 Inactive Vicks Vaporub 4.7 %-1.2 %-2.6 % topical ointment RxNorm: 0733726 1 Application TOP TID 09/24/20 18 2018 Inactive levmetamfetamine 50 mg nasal inhaler RxNorm: 1 Unit(s) NASAL Q3-4H 09/24/20 18 2017 Inactive sertraline 50 mg tablet RxNorm: 758725 1 Tablet(s) PO daily 09/09/20 18 2018 Inactive Please note dose trazodone 50 mg tablet RxNorm: 422460 1 Tablet(s) PO QHS 09/06/20 18 2018 Inactive sertraline 50 mg tablet RxNorm: 159856 1 Tablet(s) PO daily 09/06/20 18 2017 Inactive amoxicillin 500 mg tablet RxNorm: 341300 1 Tablet(s) PO Q12H 08/31/20 18 2017 Inactive albuterol sulfate 2.5 mg/3 mL (0.083 %) solution for nebulization RxNorm: 753496 1 Vial INH QID 08/10/20 18 2018 Inactive 60/box. Please do not fill early. Please do not auto refill. Prozac 10 mg capsule RxNorm: 204100 1 Capsule(s) PO daily 08/09/20 18 2017 Inactive buspirone 7.5 mg tablet RxNorm: 882736 1 Tablet(s) PO BID 08/09/20 18 2018 Inactive gabapentin 300 mg capsule RxNorm: 701185 1 Capsule(s) PO TID as needed 08/01/20 18 2018 Inactive hydrochlorothiazide 12.5 mg tablet RxNorm: 946414 1 Tablet(s) PO QAM 08/01/20 18 2018 Inactive ranitidine 150 mg tablet RxNorm: 288566 1 Tablet(s) PO BID 08/01/20 18 2018 Inactive Macrobid 100 mg capsule RxNorm: 560275 1 Capsule(s) PO Q12H 06/21/20 18 2017 Inactive Singulair 10 mg tablet RxNorm: 479222 1 Tablet(s) PO daily 06/14/20 18 2018 Inactive Ventolin HFA 90 mcg/actuation aerosol inhaler RxNorm: 7908854 2 Puff(s) INH QID 06/14/20 18 2018 Inactive Singulair 10 mg tablet RxNorm: 725647 1 Tablet(s) PO daily 06/14/20 18 2017 Inactive buspirone 7.5 mg tablet RxNorm: 122637 1 Tablet(s) PO BID 06/14/20 18 2017 Inactive Prozac 10 mg capsule RxNorm: 147661 1 Capsule(s) PO daily 06/14/20 18 2017 Inactive Neilmed Pediatric Sinus Rinse Refill packet RxNorm: 1 Unit Dose NASAL PRN 05/31/20 18 2021 Inactive diclofenac sodium 75 mg tablet,delayed release RxNorm: 669748 1 Tablet(s) PO BID 05/31/20 18 2017 Inactive lisinopril 2.5 mg tablet RxNorm: 851750 1 Tablet(s) PO daily 05/31/20 18 2017 Inactive metoprolol succinate ER 50 mg tablet,extended release 24 hr RxNorm: 983135 1 Tablet(s) PO daily 05/31/20 18 2017 Inactive levothyroxine 50 mcg tablet RxNorm: 303630 1 Tablet(s) PO daily 05/31/20 18 2017 Inactive TRUEplus Lancets 30 gauge RxNorm: 1 Lancets Miscellaneous QAM 05/31/20 18 2017 Inactive 100/box Ventolin HFA 90 mcg/actuation aerosol inhaler RxNorm: 116628 2 Puff(s) INH QID 05/31/20 18 2017 Inactive Aleve 220 mg capsule RxNorm: 3542716 1 Capsule(s) PO BID 05/31/20 18 2018 Inactive ranitidine 150 mg tablet RxNorm: 606464 1 Tablet(s) PO BID 05/31/20 18 2017 Inactive gabapentin 300 mg capsule RxNorm: 259960 1 Capsule(s) PO TID as needed 05/31/20 18 2017 Inactive atorvastatin 20 mg tablet RxNorm: 476526 1 Tablet(s) PO QHS 05/31/20 18 2017 Inactive True Metrix Glucose Test Strip RxNorm: 1 Test Strips Miscellaneous QAM 05/31/20 18 2017 Inactive 50/container Calcium 600-D3 Plus 600 mg calcium-800 unit-50 mg tablet RxNorm: 1 Tablet(s) PO daily take an additonal tablet for itching. 05/31/20 18 2017 Inactive hydrochlorothiazide 12.5 mg tablet RxNorm: 455312 1 Tablet(s) PO QAM 05/31/20 18 2017 Inactive Flintstones Complete (iron) 18 mg iron chewable tablet RxNorm: 1 Tablet(s) PO daily 05/31/20 18 2017 Inactive d-mannose oral powder RxNorm: PO 18 2021 Inactive True Metrix Glucose Meter RxNorm: miscellaneous 08/17/20 19 2018 Inactive sertraline 50 mg tablet RxNorm: 444386 1 Tablet(s) PO daily 11/28/19 20 2019 Inactive loperamide 2 mg tablet RxNorm: 805872 oral 09/29/20 19 2018 Inactive Symbicort 160 mcg-4.5 mcg/actuation HFA aerosol inhaler RxNorm: 7911360 2 Puff(s) INH BID 08/17/20 19 2018 Inactive Medication Administered No Medication Administered data Procedures Procedure Codes Date Hypertension CPT-4: HTN 04/01/2021 Tobacco Assessment/Screening CPT-4: TCA 08/2021 Patient Health Questionnaire CPT-4: DPHQ 08/2021 Mini Mental State Exam CPT-4: DMMA Annual Wellness Visit (Subsequent Visit) CPT-4: G0439 01/13/2021 Advanced Care Planning CPT-4: VACP Fall Risk Assessment SNOMED CT: 84288798 4 CPT-4: DFRA 01/13/2021 [place] Assessment CPT-4: DSWA 12/01 Urinalysis, dip stick CPT-4: 85427 09/24/2020 Patient Health Questionnaire CPT-4: DPHQ Electrocardiogram CPT-4: 09624 05/14/2020 Tobacco Assessment/Screening CPT-4: TCA Fall Risk Assessment SNOMED CT: 86733272 4 CPT-4: DFRA 01/01/2020 Functional Assessment CPT-4: DFA 01/01/2020 [place] Assessment CPT-4: DSWA 11/04 Patient Health Questionnaire CPT-4: DPHQ [place] Assessment CPT-4: DSWA 10/03 Hypertension CPT-4: HTN 10/17/2019 Fall Risk Assessment SNOMED CT: 08231748 4 CPT-4: DFRA 09/19/2019 Functional Assessment CPT-4: DFA 09/19/2019 Urinalysis, dip stick CPT-4: 40928 06/21/2019 Tobacco Assessment/Screening CPT-4: TCA Patient Health Questionnaire CPT-4: DPHQ AHA/REBECCA Classification Assessment CPT-4: DAHA 04/25/2019 Controlled Substance Report CPT-4: CTRSU 04/03 Urinalysis, dip stick CPT-4: 43560 03/28/2019 Urinalysis, dip stick CPT-4: 21048 03/28/2019 L9P-Pyprdiuvufwwpbh CPT-4: 39603 Unknown Y7B-Gtfkiegexoxnfrt CPT-4: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
--- OUTSIDE RECORDS SUMMARY | 2021-05-20 20:00 | XMS_ITS | CCD ---
Author Name Chivo Bishop NP Address [address] [place] [address] Phone Organization [facility] Phone Care Team Providers Care Hospital Director Name Role Phone Palomo KING, Anna Primary Care Provider Unav ailable Unavailable Chronic Care Management Unavaila ble Summary Purpose DataExchange Insurance Providers Payer name Policy type / Coverage type Covered constitution party ID Effective Begin Date Effective End Date SUKI MAYO [id number] Unknown Unknown Family history Mother Diagnosis Age [...] Unknown Disability 05/31/[address]: 931252923 Has never s moked or chewed tobacco 05/31/[address]: 609996136 Never drinks alco hol 05/31/2018 Has the patient ever used illegal drugs? Unknown Has never used illegal drugs 05/31/2018 DNR Order/ Advanced Directive Unknown Full Code 05/31/2018 Allergies, Adverse Reactions, Alerts Substance Reaction Codes Entered Date Inactivated Date Status OxyContin itch, RxNorm: 612896 01/13/2021 No Inactive Da te Active *No known food allergies Unknown 09/06/2018 No I nactive Date Active Methylprednisolone hives RxNorm: 6902 09/06/2018 No Inac tive Date Active Problems Condition Codes Effective Dates Condition St atus Chronic kidney disease, stag e 2 (mild) ICD-10: N18.2 ICD-9: 585.2 10/29/2020 Active Family history of seizures ICD-10: Z84.8 9 ICD-9: V19.8 04/28/2021 Active Hypertensive heart disease w ith heart failure ICD-10: I11.0 ICD-9: 402.91 04/25/2019 Active Syncope and collapse ICD-10: R55 ICD-9: 780.2 01/01/2020 Active Type 2 diabetes mellitus wit h peripheral neuropathy ICD-10: E11.42 ICD-9: 250.60 11/28/2019 Active Anorexia ICD-10: R63.0 ICD-9: 783.0 12/17/2020 Active Adjustment disorder with mix ed anxiety and depressed mood ICD-10: F43.23 ICD-9: 309.28 09/05/2018 Active Post-traumatic stress disord er, unspecified ICD-10: F43.10 ICD-9: 309.81 09/05/2018 Active Blister ICD-10: T14.8XXA ICD-9: 919.2 03/24/2021 Active Obstructive sleep apnea (chio lt) (pediatric) ICD-10: G47.33 ICD-9: 327.23 06/21/2019 Active Encounter for screening for tobacco use ICD-10: Z01.89 ICD-9: V72.85 01/01/2020 Active Elevated liver enzymes ICD-10: R74.8 ICD-9: 790.5 01/29/2021 Active Hyperlipidemia, unspecified ICD-10: E78. 5 ICD-9: 272.4 05/30/2018 Active GERD (gastroesophageal reflu x disease) ICD-10: [...] ICD-10: R51 ICD-9: 784.0 10/03/2018 Inactive Other long-term (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 ICD-10: Z79.899 ICD-9: V58.69 04/25/2019 Inactive Type 2 diabetes mellitus wit hout complications ICD-10: E11.9 ICD-9: 250.00 10/03/2018 Inactive Wheezing ICD-10: R06.2 ICD-9: 786.07 08/08/2018 Inactive Abnormal urine finding ICD-10: R82.90 ICD-9: 791.9 09/24/2020 Resolved Abrasion of toe ICD-10: S90.416A ICD-9: 917.0 02/14/2020 Resolved Acute upper respiratory infe ction, unspecified ICD-10: J06.9 ICD-9: 465.9 09/04/2019 Resolved [place] eye ICD-10: H10.029 ICD-9: 372.03 12/29/2019 Resolved [...] ICD-10: Z68. 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 anti-inflammatories (NSAID) ICD-10: Z79.1 ICD-9: V58.64 06/13/2018 Active Medications Medication Codes Instructions Start Date Stop Date Status Fill Instructions Heartburn Relief (famotidine) 10 mg tablet RxNorm: 537632 Take 1 Tablet(s) Oral every morning 05/07/20 21 2020 Inactive omeprazole 20 mg capsule,delayed release RxNorm: 356518 1 Capsule(s) Oral every evening 04/03/20 21 2020 Inactive sertraline 100 mg tablet RxNorm: 812689 2 Tablet(s) Oral every day 03/13/20 21 2020 Inactive levothyroxine 50 mcg tablet RxNorm: 697009 TAKE (1) TABLET BY MOUTH DAILY 02/04/20 21 2020 Inactive metformin 500 mg tablet RxNorm: 817314 1 Tablet(s) Oral two times a day take with 500mg to equal 1000mg 01/14/20 21 2020 Inactive gabapentin 300 mg capsule RxNorm: 640965 TAKE 1 CAPSULE BY MOUTH THREE TIMES A DAY 01/14/20 21 2020 Inactive lisinopril 2.5 mg tablet RxNorm: 624915 TAKE 1 TABLET BY MOUTH DAILY 01/06/20 21 2020 Inactive gabapentin 300 mg capsule RxNorm: 519850 TAKE 1 CAPSULE BY MOUTH THREE TIMES A DAY 01/06/20 21 2020 Inactive Singulair 10 mg tablet RxNorm: 154772 TAKE (1) TABLET BY MOUTH DAILY 01/06/20 21 2020 Inactive metformin 1,000 mg tablet RxNorm: 867759 1 Tablet(s) Oral two times a day 01/06/20 21 2020 Inactive atorvastatin 40 mg tablet RxNorm: 824517 1 Tablet(s) Oral every day 12/06/19 21 2020 Inactive omeprazole 20 mg capsule,delayed release RxNorm: 252066 1 Capsule(s) Oral every evening 11/24/19 21 2020 Inactive famotidine 10 mg tablet RxNorm: 912719 1 Tablet(s) Oral every morning 11/24/19 21 2020 Inactive Alcohol Prep Pads RxNorm: 457921 USE EACH MORNING 10/14/19 21 2020 Inactive omeprazole 20 mg capsule,delayed release RxNorm: 930959 1 Capsule(s) Oral two times a day 10/13/19 21 2021 Inactive omeprazole 20 mg capsule,delayed release RxNorm: 530033 TAKE 1 CAPSULE BY MOUTH EVERY DAY 10/08/19 21 2021 Inactive Macrobid 100 mg capsule RxNorm: 733651 1 Capsule(s) Oral every 12 hours with food 10/01/202020 Inactive omeprazole 20 mg capsule,delayed release RxNorm: 036871 1 Capsule(s) Oral two times a day 09/24/20 20 2021 Inactive metformin 1,000 mg tablet RxNorm: 869066 1 Tablet(s) Oral two times a day 08/19/202020 Inactive start on September 11, 2020 metformin 500 mg tablet RxNorm: 679230 1 Tablet(s) Oral two times a day take with 500mg to equal 1000mg 08/19/202019 Inactive gabapentin 300 mg capsule RxNorm: 010353 TAKE 1 CAPSULE BY MOUTH THREE TIMES DAILY 07/11/20 20 2020 Inactive cetirizine 10 mg tablet RxNorm: 5450299 TAKE (1) TABLET BY MOUTH DAILY 07/11/20 20 2020 Inactive metformin 500 mg tablet RxNorm: 108792 1 Tablet(s) Oral two times a day 07/08/20 20 2019 Inactive loperamide 2 mg tablet RxNorm: 515015 1 Tablet(s) Oral as needed take one tablet after each loose stool, maximum of 8 tablets in 24 hours 06/24/20 20 2021 Inactive Sudafed 12 Hour 120 mg tablet,extended release RxNorm: 2667077 TAKE 1 TABLET BY MOUTH EVERY 12 HOURS NEEDED 06/11/20 20 2019 Inactive hydrochlorothiazide 25 mg tablet RxNorm: 561694 TAKE (1) TABLET BY MOUTH EVERY DAY 06/11/20 20 2019 Inactive omeprazole 20 mg capsule,delayed release RxNorm: 409885 TAKE 1 CAPSULE BY MOUTH EVERY DAY 05/14/20 20 2020 Inactive metformin 500 mg tablet RxNorm: 105158 1 Tablet(s) Oral every day 05/12/20 20 2019 Inactive True Metrix Glucose Test Strip RxNorm: 1 Test Strips Miscellaneous two times a day as needed 04/17/20 No Stop Date Active metformin 500 mg tablet RxNorm: 190273 1 Tablet(s) Oral every day 04/17/20 20 2019 Inactive diclofenac sodium 75 mg tablet,delayed release RxNorm: 040596 1 Tablet(s) PO BID 04/14/20 20 2021 Inactive This refill negates all other refills of this medication Sudafed 12 Hour 120 mg tablet,extended release RxNorm: 4611052 TAKE 1 TABLET BY MOUTH EVERY 12 HOURS NEEDED 03/14/20 20 2019 Inactive True Metrix Glucose Test Strip RxNorm: 1 Test Strips Miscellaneous every morning 03/13/20 20 2019 Inactive 100/container True Metrix Glucose Test Strip RxNorm: 1 Test Strips Miscellaneous QA 02/22/20 20 2019 Inactive 100/container loperamide 2 mg tablet RxNorm: 007004 1 Tablet(s) Oral as needed take one tablet after each loose stool, maximum of 8 tablets in 24 hours 02/22/20 20 2019 Inactive cetirizine 10 mg tablet RxNorm: 8227459 1 Tablet(s) PO daily 01/17/20 20 2019 Inactive loperamide 2 mg tablet RxNorm: 224292 1 Tablet(s) Oral as needed take one tablet after each loose stool, maximum of 8 tablets in 24 hours 01/17/20 20 2019 Inactive quetiapine 100 mg tablet RxNorm: 876145 1 Tablet(s) Oral every night at bedtime 01/17/20 20 2019 Inactive levothyroxine 50 mcg tablet RxNorm: 804045 1 Tablet(s) PO daily 01/17/20 20 2020 Inactive gabapentin 300 mg capsule RxNorm: 360285 1 Capsule(s) PO TID 01/17/20 20 2019 Inactive levothyroxine 50 mcg tablet RxNorm: 782930 1 Tablet(s) PO daily 01/15/20 20 2019 Inactive lisinopril 2.5 mg tablet RxNorm: 021351 1 Tablet(s) PO daily 01/15/20 20 2020 Inactive gabapentin 300 mg capsule RxNorm: 574283 1 Capsule(s) PO TID 01/15/20 20 2019 Inactive cetirizine 10 mg tablet RxNorm: 0393210 1 Tablet(s) PO daily 01/15/20 20 2019 Inactive Singulair 10 mg tablet RxNorm: 038332 1 Tablet(s) PO daily 01/15/20 20 2020 Inactive gentamicin 0.3 % eye drops RxNorm: 345697 1 Drop(s) ophthalmic (eye) four times a day 12/29/19 20 2019 Inactive gentamicin 0.3 % eye drops RxNorm: 498223 1 Drop(s) ophthalmic (eye) four times a day 12/29/19 20 2019 Inactive gentamicin 0.3 % eye drops RxNorm: 652349 1 Drop(s) ophthalmic (eye) four times a day 12/29/19 20 2019 Inactive hydrochlorothiazide 25 mg tablet RxNorm: 901653 1 Tablet(s) Oral every day 12/21/19 20 2019 Inactive Sudafed 12 Hour 120 mg tablet,extended release RxNorm: 5418162 TAKE (1) TABLET BY MOUTH EVERY 12 HOURS NEEDED 12/21/19 20 2019 Inactive loperamide 2 mg tablet RxNorm: 744375 1 Tablet(s) Oral as needed take one tablet after each loose stool, maximum of 8 tablets in 24 hours 12/11/19 20 2019 Inactive loperamide 2 mg tablet RxNorm: 569263 1 Tablet(s) Oral as needed take one tablet after each loose stool, maximum of 8 tablets in 24 hours 12/11/19 20 2019 Inactive atorvastatin 40 mg tablet RxNorm: 079541 1 Tablet(s) Oral every day 11/29/19 20 2020 Inactive quetiapine 100 mg tablet RxNorm: 457354 1 Tablet(s) Oral every night at bedtime 11/28/19 20 2019 Inactive sertraline 100 mg tablet RxNorm: 788283 1 Tablet(s) Oral 11/28/19 2019 Inactive omeprazole 20 mg capsule,delayed release RxNorm: 804983 1 Capsule(s) Oral every day 11/20/19 20 2019 Inactive amoxicillin 250 mg capsule RxNorm: 776209 1 Capsule(s) Oral three times a day 11/07/19 20 2019 Inactive multivitamin with iron-mineral tablet RxNorm: 1 Tablet(s) Oral every day 10/29/19 20 2021 Inactive cetirizine 10 mg tablet RxNorm: 9792833 1 Tablet(s) PO daily 10/20/19 20 2019 Inactive This refill negates all other refills of this medication. Please do not auto refill Singulair 10 mg tablet RxNorm: 815685 1 Tablet(s) PO daily 10/20/19 20 2019 Inactive This refill negates all other refills of this medication gabapentin 300 mg capsule RxNorm: 829044 1 Capsule(s) PO TID 10/20/192019 Inactive lisinopril 2.5 mg tablet RxNorm: 421792 1 Tablet(s) PO daily 10/20/19 20 2019 Inactive levothyroxine 50 mcg tablet RxNorm: 977061 1 Tablet(s) PO daily 10/20/19 20 2019 Inactive This refill negates all other refills of this medication fenugreek seed extract 500 mg capsule RxNorm: 1 Capsule(s) Oral three times a day 10/17/19 20 2021 Inactive hydrochlorothiazide 25 mg tablet RxNorm: 577359 1 Tablet(s) Oral every day 10/17/19 20 2019 Inactive Alcohol Prep Pads RxNorm: 841282 1 Patch TOP QAM 10/16/192020 Inactive loperamide 2 mg tablet RxNorm: 230282 1 Tablet(s) Oral as needed take one [...] 2019 Inactive hydrochlorothiazide 25 mg tablet RxNorm: 492770 1 Tablet(s) Oral every day 09/19/20 19 2019 Inactive Sudafed 12 Hour 120 mg tablet,extended release RxNorm: 9788946 1 Tablet(s) Oral every 12 hours as needed 09/11/20 19 2018 Inactive omeprazole 20 mg capsule,delayed release RxNorm: 912402 1 Capsule(s) Oral every day 09/07/20 19 2019 Inactive Sudafed 12 Hour 120 mg tablet,extended release RxNorm: 7696942 1 Tablet(s) Oral every 12 hours as needed 09/04/20 19 2018 Inactive pantoprazole 40 mg tablet,delayed release RxNorm: 263633 1 Tablet(s) Oral every day 08/24/20 19 2018 Inactive discontinue any other H2Blkr. and PPI albuterol sulfate 2.5 mg/3 mL (0.083 %) solution for nebulization RxNorm: 380298 1 Vial Inhalation every four hours as needed as needed for dyspnea 08/17/20 19 2019 Inactive 60/box. This refill negates all other refills of this medication. Please do not fill early. Please do not auto refill. Symbicort 160 mcg-4.5 mcg/actuation HFA aerosol inhaler RxNorm: 5922618 2 Puff(s) INH BID 08/17/20 19 No Stop Date Active Alcohol Prep Pads RxNorm: 469312 1 Patch TOP QAM 08/17/20 19 2019 Inactive Ventolin HFA 90 mcg/actuation aerosol inhaler RxNorm: 916751 2 Puff(s) INH QID 08/09/20 19 2019 Inactive Please do not fill early. Please do not auto refill. This refill negates all other refills of this medication True Metrix Glucose Test Strip RxNorm: 1 Test Strips Miscellaneous QAM 08/09/20 19 2019 Inactive 100/container atorvastatin 40 mg tablet RxNorm: 690539 1 Tablet(s) Oral every day 07/04/20 19 2019 Inactive levmetamfetamine 50 mg nasal inhaler RxNorm: 1 Unit(s) NASAL Q3-4H Do not use more than every 3 hours or 8 times/24hours 06/26/20 19 2021 Inactive Please do not auto refill. This refill negates all other refills of this medication buspirone 7.5 mg tablet RxNorm: 260613 1 Tablet(s) PO BID 06/26/20 19 2020 Inactive This refill negates all other refills of this medication hydrochlorothiazide 12.5 mg tablet RxNorm: 126620 1 Tablet(s) PO QAM 06/26/20 19 2019 Inactive Ventolin HFA 90 mcg/actuation aerosol inhaler RxNorm: 852968 2 Puff(s) INH QID 06/26/20 19 2018 Inactive Please do not fill early. Please do not auto refill. This refill negates all other refills of this medication Singulair 10 mg tablet RxNorm: 570710 1 Tablet(s) PO daily 06/26/20 19 2019 Inactive This refill negates all other refills of this medication cetirizine 10 mg tablet RxNorm: 5129012 1 Tablet(s) PO daily 06/26/20 19 2019 Inactive This refill negates all other refills of this medication. Please do not auto refill levothyroxine 50 mcg tablet RxNorm: 558056 1 Tablet(s) PO daily 06/26/20 19 2019 Inactive This refill negates all other refills of this medication diclofenac sodium 75 mg tablet,delayed release RxNorm: 082106 1 Tablet(s) PO BID 06/26/20 19 2019 Inactive This refill negates all other refills of this medication ranitidine 150 mg tablet RxNorm: 794651 1 Tablet(s) PO BID 06/26/20 19 2018 Inactive This refill negates all other refills of this medication Calcium 600-D3 Plus (mag-zinc) 600 mg calcium-800 unit-50 mg tablet RxNorm: 1 Tablet(s) PO daily take an additonal tablet for itching. 06/26/20 19 2018 Inactive This refill negates all other refills of this medication albuterol sulfate 2.5 mg/3 mL (0.083 %) solution for nebulization RxNorm: 748085 1 Vial INH QID 06/26/20 19 2018 Inactive 60/box. This refill negates all other refills of this medication. Please do not fill early. Please do not auto refill. lisinopril 2.5 mg tablet RxNorm: 734267 1 Tablet(s) PO daily 06/21/20 19 2019 Inactive gabapentin 300 mg capsule RxNorm: 042202 1 Capsule(s) PO TID 06/21/20 19 2019 Inactive atorvastatin 20 mg tablet RxNorm: 195339 1 Tablet(s) PO QHS 06/07/20 19 2018 Inactive This refill negates all other refills of this medication TRUEplus Lancets 30 gauge RxNorm: 1 Lancets Miscellaneous QAM 05/29/20 19 2018 Inactive 100/box gabapentin 300 mg capsule RxNorm: 769140 1 Capsule(s) PO TID 05/03/20 19 2018 Inactive Flintsmaury Complete (iron) 18 mg iron chewable tablet RxNorm: 1 Tablet(s) PO daily 04/04/20 19 2021 Inactive This refill negates all other refills of this medication gabapentin 300 mg capsule RxNorm: 085136 1 Capsule(s) PO TID as needed 02/01/20 19 2018 Inactive True Metrix Glucose Test Strip RxNorm: 1 Test Strips Miscellaneous QA 02/01/20 19 2018 Inactive 100/container Alcohol Prep Pads RxNorm: 620041 1 Patch TOP QAM 02/01/20 19 2018 Inactive TRUEplus Lancets 30 gauge RxNorm: 1 Lancets Miscellaneous QAM 02/01/20 19 2018 Inactive 100/box lisinopril 2.5 mg tablet RxNorm: 003591 1 Tablet(s) PO daily 12/28/19 19 2018 Inactive ranitidine 150 mg tablet RxNorm: 560035 1 Tablet(s) PO BID 10/21/19 19 2018 Inactive This refill negates all other refills of this medication albuterol sulfate 2.5 mg/3 mL (0.083 %) solution for nebulization RxNorm: 010547 1 Vial INH QID 10/21/192018 Inactive 60/box. [...] this medication gabapentin 300 mg capsule RxNorm: 026736 1 Capsule(s) PO TID as needed 10/21/19 19 2018 Inactive atorvastatin 20 mg tablet RxNorm: 073264 1 Tablet(s) PO QHS 10/21/192018 Inactive This refill negates all other refills of this medication trazodone 50 mg tablet RxNorm: 212216 1 Tablet(s) PO QHS 10/21/192018 Inactive This refill negates all other refills of this medication Ventolin HFA 90 mcg/actuation aerosol inhaler RxNorm: 952220 2 Puff(s) INH QID 10/21/192018 Inactive Please do not fill early. Please do not auto refill. This refill negates all other refills of this medication Calcium 600-D3 Plus 600 mg calcium-800 unit-50 mg tablet RxNorm: 1 Tablet(s) PO daily take an additonal tablet for itching. 10/21/19 19 2018 Inactive This refill negates all other refills of this medication Singulair 10 mg tablet RxNorm: 730858 1 Tablet(s) PO daily 10/21/1917/ 2019 Inactive This refill negates all other refills of this medication buspirone 7.5 mg tablet RxNorm: 466301 1 Tablet(s) PO BID 10/21/19 19 2018 Inactive This refill negates all other refills of this medication diclofenac sodium 75 mg tablet,delayed release RxNorm: 061182 1 Tablet(s) PO BID 10/21/19 19 2018 Inactive This refill negates all other refills of this medication hydrochlorothiazide 12.5 mg tablet RxNorm: 241844 1 Tablet(s) PO QAM 10/21/19 19 2018 Inactive metoprolol succinate ER 50 mg tablet,extended release 24 hr RxNorm: 291028 1 Tablet(s) PO daily 10/21/19 19 2018 Inactive This refill negates all other refills of this medication levothyroxine 50 mcg tablet RxNorm: 500205 1 Tablet(s) PO daily 10/21/19 19 2018 Inactive This refill negates all other refills of this medication cetirizine 10 mg tablet RxNorm: 2878319 1 Tablet(s) PO daily 10/21/19 19 2018 Inactive This refill negates all other refills of this medication. Please do not auto refill Flintstones Complete (iron) 18 mg iron chewable tablet RxNorm: 1 Tablet(s) PO daily 10/21/19 19 2018 Inactive This refill negates all other refills of this medication buspirone 7.5 mg tablet RxNorm: 783145 1 Tablet(s) PO BID 10/12/192018 Inactive cetirizine 10 mg tablet RxNorm: 0382384 1 Tablet(s) PO daily 09/28/202018 Inactive Guaiasorb DM 10 mg-100 mg/5 mL oral liquid RxNorm: 629769 10 Milliliter(s) PO As needed every 4 hr 09/24/20 18 2018 Inactive Vicks Vaporub 4.7 %-1.2 %-2.6 % topical ointment RxNorm: 2944457 1 Application TOP TID 09/24/20 18 2018 Inactive levmetamfetamine 50 mg nasal inhaler RxNorm: 1 Unit(s) NASAL Q3-4H 09/24/20 18 2017 Inactive sertraline 50 mg tablet RxNorm: 828452 1 Tablet(s) PO daily 09/09/20 18 2018 Inactive Please note dose trazodone 50 mg tablet RxNorm: 855313 1 Tablet(s) PO QHS 09/06/20 18 2018 Inactive sertraline 50 mg tablet RxNorm: 408363 1 Tablet(s) PO daily 09/06/20 18 2017 Inactive amoxicillin 500 mg tablet RxNorm: 378489 1 Tablet(s) PO Q12H 08/31/20 18 2017 Inactive albuterol sulfate 2.5 mg/3 mL (0.083 %) solution for nebulization RxNorm: 734374 1 Vial INH QID 08/10/20 18 2018 Inactive 60/box. Please do not fill early. Please do not auto refill. Prozac 10 mg capsule RxNorm: 868776 1 Capsule(s) PO daily 08/09/20 18 2017 Inactive buspirone 7.5 mg tablet RxNorm: 549169 1 Tablet(s) PO BID 08/09/20 18 2018 Inactive gabapentin 300 mg capsule RxNorm: 322362 1 Capsule(s) PO TID as needed 08/01/20 18 2018 Inactive hydrochlorothiazide 12.5 mg tablet RxNorm: 457807 1 Tablet(s) PO QAM 08/01/20 18 2018 Inactive ranitidine 150 mg tablet RxNorm: 417834 1 Tablet(s) PO BID 08/01/20 18 2018 Inactive Macrobid 100 mg capsule RxNorm: 331920 1 Capsule(s) PO Q12H 06/21/20 18 2017 Inactive Singulair 10 mg tablet RxNorm: 068863 1 Tablet(s) PO daily 06/14/20 18 2018 Inactive Ventolin HFA 90 mcg/actuation aerosol inhaler RxNorm: 5774311 2 Puff(s) INH QID 06/14/20 18 2018 Inactive Singulair 10 mg tablet RxNorm: 819319 1 Tablet(s) PO daily 06/14/20 18 2017 Inactive buspirone 7.5 mg tablet RxNorm: 848788 1 Tablet(s) PO BID 06/14/20 18 2017 Inactive Prozac 10 mg capsule RxNorm: 473517 1 Capsule(s) PO daily 06/14/20 18 2017 Inactive Neilmed Pediatric Sinus Rinse Refill packet RxNorm: 1 Unit Dose NASAL PRN 05/31/20 18 2021 Inactive diclofenac sodium 75 mg tablet,delayed release RxNorm: 976259 1 Tablet(s) PO BID 05/31/20 18 2017 Inactive lisinopril 2.5 mg tablet RxNorm: 896779 1 Tablet(s) PO daily 05/31/20 18 2017 Inactive metoprolol succinate ER 50 mg tablet,extended release 24 hr RxNorm: 933227 1 Tablet(s) PO daily 05/31/20 18 2017 Inactive levothyroxine 50 mcg tablet RxNorm: 454074 1 Tablet(s) PO daily 05/31/20 18 2017 Inactive TRUEplus Lancets 30 gauge RxNorm: 1 Lancets Miscellaneous QAM 05/31/20 18 2017 Inactive 100/box Ventolin HFA 90 mcg/actuation aerosol inhaler RxNorm: 130684 2 Puff(s) INH QID 05/31/20 18 2017 Inactive Aleve 220 mg capsule RxNorm: 7981618 1 Capsule(s) PO BID 05/31/20 18 2018 Inactive ranitidine 150 mg tablet RxNorm: 978355 1 Tablet(s) PO BID 05/31/20 18 2017 Inactive gabapentin 300 mg capsule RxNorm: 543527 1 Capsule(s) PO TID as needed 05/31/20 18 2017 Inactive atorvastatin 20 mg tablet RxNorm: 463874 1 Tablet(s) PO QHS 05/31/20 18 2017 Inactive True Metrix Glucose Test Strip RxNorm: 1 Test Strips Miscellaneous QAM 05/31/20 18 2017 Inactive 50/container Calcium 600-D3 Plus 600 mg calcium-800 unit-50 mg tablet RxNorm: 1 Tablet(s) PO daily take an additonal tablet for itching. 05/31/20 18 2017 Inactive hydrochlorothiazide 12.5 mg tablet RxNorm: 347935 1 Tablet(s) PO QAM 05/31/20 18 2017 Inactive Flintstones Complete (iron) 18 mg iron chewable tablet RxNorm: 1 Tablet(s) PO daily 05/31/20 18 2017 Inactive d-mannose oral powder RxNorm: PO 18 2021 Inactive True Metrix Glucose Meter RxNorm: miscellaneous 08/17/20 19 2018 Inactive sertraline 50 mg tablet RxNorm: 185608 1 Tablet(s) PO daily 11/28/19 20 2019 Inactive loperamide 2 mg tablet RxNorm: 716949 oral 09/29/20 19 2018 Inactive Symbicort 160 mcg-4.5 mcg/actuation HFA aerosol inhaler RxNorm: 2185787 2 Puff(s) INH BID 08/17/20 19 2018 Inactive Medication Administered No Medication Administered data Procedures Procedure Codes Date Frailty Screening CPT-4: SFD 05/20/2021 Frailty Screening Are you fatigued?/No (0), Can you walk one block?/Yes (0), Can you walk up one flight of stairs?/Yes (0), Do you have more than 5 chronic illnesses?/Yes (1), Have you lost more than 5% body weight in 6 months?/No (0), Frailty Point Total:/Score 1=pre frail CPT-4: SFDUnknown 05/20/2021 Hypertension CPT-4: HTN 04/01/2021 Tobacco Assessment/Screening CPT-4: TCA 08/2021 Patient Health Questionnaire CPT-4: DPHQ 08/2021 Mini Mental State Exam CPT-4: DMMA 1 Annual Wellness Visit (Subsequent Visit) CPT-4: G0439 01/13/2021 Advanced Care Planning CPT-4: VACP 04/13/202 1 Fall Risk Assessment SNOMED CT: 60557991 4 CPT-4: DFRA 01/13/2021 [place] Assessment CPT-4: DSWA 12/01 Urinalysis, dip stick CPT-4: 02538 09/24/2020 Patient Health Questionnaire CPT-4: DPHQ Electrocardiogram CPT-4: 46696 05/14/2020 Tobacco Assessment/Screening CPT-4: TCA Fall Risk Assessment SNOMED CT: 22363806 4 CPT-4: DFRA 01/01/2020 Functional Assessment CPT-4: DFA 01/01/2020 [place] Assessment CPT-4: DSWA 11/04 Patient Health Questionnaire CPT-4: DPHQ [place] F[place] Assessment CPT-4: DSWA 10/03 Hypertension CPT-4: HTN 10/17/2019 Fall Risk Assessment SNOMED CT: 62559712 4 CPT-4: DFRA 09/19/2019 Functional Assessment CPT-4: DFA 09/19/2019 Urinalysis, dip stick CPT-4: 32160 06/21/2019 Tobacco Assessment/Screening CPT-4: TCA Patient Health Questionnaire CPT-4: DPHQ AHA/REBECCA Classification Assessment CPT-4: DAHA 04/25/2019 Controlled Substance Report CPT-4: CTRSU 04/03 Urinalysis, dip stick CPT-4: 28877 03/28/2019 Urinalysis, dip stick CPT-4: 61123 03/28/2019 Y2X-Jrjwhqvsvfrhuto CPT-4: 00736 Unknown V8Q-Flqnetmkxgcawll CPT-4: 99331 Unknown Y6D-Ovxtgjdgyptqnhp CPT-4: 04132 Unknown P9K-Kmlzqxegdiroffu CPT-4: 42199 Unknown I1V-Znekwspanmuyizp CPT-4: 89772 Unknown L4I-Rdbnvhlasjhctvv CPT-4: 70899 Unknown Y0X-Hdrhdpdsrforfgc CPT-4: 01655 Unknown Gynecology Referral SNOMED CT: [id number] CPT-4: R14 Unknown Reason For Visit Reason For Visit Effective Dates Notes diabetes mellitus 05/20/2021 hyperlipidemia disease 05/20/2021 Interim health update 05/20/2021 dizziness 05/20/2021 Encounters Encounter Performer Location Location Address Codes Magdi e ([id number]) (EST PT) EXPANDED PROBLEM FOCUSED TELEHEALTH VISIT Diagnosis: Syncope and collapse[ICD10: R55] Diagnosis: Type 2 diabetes mellitus with peripheral neuropathy[ICD10: E11.42] Diagnosis: Family history of seizures[ICD10: Z84.89] Diagnosis: Hypertensive heart disease with heart failure[ICD10: I11.0] Diagnosis: Chronic kidney disease, stage 2 (mild)[ICD10: N18.2] Chivo Bishop [place] [facility] [id number] [place] [address] [place] [address] CPT-4: 16173 05/20/2021 Plan of Care Planned Activity Notes Codes [...] drawn at [facility] referred to neurology previously - has upcoming visit 05/24/21 advised to notify office for persistent or worsening symptoms F43.23-309.28 Adjustment disorder with mixed anxiety and depressed mood discussed stress management routine follow up [facility] [place] 03/13/2021 PHQ 9 Score 4 Sertraline 200mg daily 04/01/2021 Functional Assessment independent with ADLs R63.0-783.0 Anorexia symptoms persistent advised to continue to try small, more frequent food intake, discussed limiting carbonated beverages as this may make her feel full taking away appetite discussed benefits of [employer] Instant Breakfast not using note weight has remained stable over the past couple months-will continue to monitor labs performed recently at [facility]- results requested 05/20/21 E11.42-250.60 Type 2 [...] 01/29/2021 Hgb A1C 5.3 10/17/2019 Inocente Soares 04/11-instructed on good daily foot care [...] drawn at [facility] E78.5-272.4 Hyperlipidemia, unspecified 01/29/2021 alkaline phos 228 [...] new appt for pap in June 2020-[employer] [facility] Efficiency [facility]-reports pap negative-records requested Z01.89-V72.85 Encounter for screening for tobacco use 03/13/2021 Tobacco screen complete-patient denies ever smoking Z12.31-V76.12 (Z12.31-V76.12) Encounter for screening mammogram for malignant neoplasm of breast Z12.11-V76.51 (Z12.11-V76.51) Encounter for screening for malignant neoplasm of colon Preventative testing not indicated due to age *I reviewed the most recent CDC guidelines regarding Covid-19/Coronavirus with the patient/caregiver/designee 05/20/2021 Patient Education: Patient Medication Summary Completed 05/20/2021 Patient Education: Diabetes Complete d 05/20/2021 Patient Education: Dizziness Complet ed 05/20/2021 Appointment: Anna Culver WPtel: [address] [place] [address] [place] ETV 04/28/2021 Appointment: Chivo Bishop WPtel: [address] [place] [address] [place] ETV 04/15/2021 Appointment: Anna Culver WPtel: [address] [place] [address] [place] E410 04/01/2021 Appointment: Anna Culver WPtel: [id number] [place] [address] ETV 03/24/2021 Appointment: Anna Culver WPtel: [address] [place] [address] ETV 03/13/2021 Appointment: Anna Culver WPtel: [address] [place] [address] E410 02/11/2021 Appointment: Chivo Bishop WPtel: [address] [place] [address] E410 01/29/2021 Appointment: Anna Culver WPtel: [address] [place] [address] ETV 01/13/2021 Appointment: Anna Culver WPtel: [address] [place] [address] E410 12/17/2020 Appointment: Chivo Bishop WPtel: [address] [place] [address] ETV 11/28/2020 Appointment: Anna Culver WPtel: [address] [place] [address] ETV 11/24/2020 Appointment: Anna Culver WPtel: [address] [place] [address] E410 10/29/2020 Appointment: Anna Culver WPtel: [address] [place] [address] E410 09/24/2020 Appointment: Anna Culver WPtel: [address] [place] [address] ETV 08/26/2020 Appointment: Anna Culver WPtel: [address] [place] [address] ETV 08/19/2020 Appointment: Anna Culver WPtel: [id number] [place] [address] [place] ETV 07/22/2020 Appointment: Anna Culver WPtel: [address] [place] [address] ETV 07/08/2020 Appointment: Gianna Birmingham: [address] [facility] 100 [id number] [place] ECHO 07/02/2020 Appointment: Anna Culver WPtel: [address] [place] [address] E452 06/11/2020 Appointment: Anna Culver WPtel: [address] [place] [address] E452 05/14/2020 Appointment: Anna Culver WPtel: [address] [place] [address] E452 04/17/2020 Appointment: Anna Culver WPtel: [address] [place] [address] E452 03/21/2020 Appointment: Anna Culver WPtel: [address] [place] [address] E452 02/14/2020 Appointment: Anna Culver WPtel: [address] [place] [address] E452 01/24/2020 Appointment: Anna Culver WPtel: [address] [place] [address] [place] E452 01/01/2020 Appointment: Anna Culver WPtel: [address] [place] [address] [place] E452 11/28/2019 Appointment: Anna Culver WPtel: [address] [place] [address] [place] E452 10/17/2019 Appointment: Anna Culver WPtel: [address] [place] [address] [place] E452 09/19/2019 Appointment: Sudha Hernadez WPtel: [address] [facility] [id number] E452 07/04/2019 Appointment: Sudha Hernadez WPtel: [address] [facility] [id number] E452 06/21/2019 Appointment: Charlene Oropeza WPtel: [address] [facility] [id number] E452 05/24/2019 Appointment: Mallory Delgado E452 04/27/2019 Appointment: Charlene Oropeza WPtel: [address] [facility] [id number] E452 04/25/2019 Appointment: Rasta Palafox WPtel: [address] [facility] [id number] E452 03/28/2019 Appointment: Rasta Palafox WPtel: [address] [place] [address] [id number] E452 02/14/2019 Appointment: Rasta Palafox WPtel: [address] [facility] [id number] E452 01/31/2019 Appointment: Rasta Palafox WPtel: [address] [place] [address] [id number] E420 12/27/2018 Referral: Pending Gynecology Referral Information Referral Processed Referral: Pending Pulmonolog y Referral Information Referral Processed Referral: Pending Psychiatry Referral Information Referral Initiated Referral: Pending Respirator y Services Referral Information Referral Initiated Referral: Pending Ophthalmology Referral Information Referral Initiated Referral: Checo Ward O f [facility] WPtel: [address] [address] [place] Remelt Worker placed a call out to the patient to notify her that it has been recommended that she be seen by 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 Patient agreed to be seen, does not have a provider of choice and no transportation issues. Remelt Worker faxed referral and clinical notes to [facility] in [place], [place] near the patient's home. Patient to [...] seen and prefers a provider in the [place] or [place] area. Remelt Worker placed a call out to everyone listed in the area and the only location that was able to accept the patient's insurance was [place] [address] [place] [address] and spoke with Maylin. Maylin asked that the patient's referral, face sheet and visit notes be faxed to . Remelt Worker faxed over requested documents. Patient appointment confirmation letter generated and mailed to her home address. Patient to call to schedule an appointment. [facility] W[facility]: [address] [place] [address] Patient notified that it has been advised that she be seen by Neurology. Patient agreed to be seen and prefers to be seen by a provider in the [place], [place] area. Patient denies any concerns with transportation, and prefers to schedule her own appointment. Remelt Worker placed a call out to [facility] and spoke with Neeraj P: who confirmed that their office is able to accept new patients and the patient's insurance. After confirming the providers fax number, insurance writer faxed over the patient's referral, and [...] Assessment and plan reviewed with patient . R55-780.2 Syncope and collapse; Z84.89-V19.8 Family history of seizures remains a concern over the past month, can't confirm, but feels she is having seizure activity, does have family hx of seizures discussed possible causes other than seizure such as stress, cardiac, diabetes mellitus labs to be drawn at [facility] referred to neurology previously - has upcoming visit 05/24/21 advised to notify office for persistent or worsening symptoms F43.23-309.28 Adjustment disorder with mixed anxiety and depressed mood discussed stress management routine follow up [facility] [place] 03/13/2021 PHQ 9 Score 4 Sertraline 200mg daily 04/01/2021 Functional Assessment independent with ADLs R63.0-783.0 Anorexia symptoms persistent advised to continue to try small, more frequent food intake, discussed limiting carbonated beverages as this may make her feel full taking away appetite discussed benefits of [employer] Instant Breakfast not using note weight has remained stable over the past couple months-will continue to monitor labs performed recently at [facility]- results requested 05/20/21 E11.42-250.60 Type 2 [...] this medication received new monitor [employer] through [place]-participant of [employer] on demand - 01/29/2021 Hgb A1C 5.3 10/17/2019 Olustee Fany 7/10-instructed on good daily foot care [...] drawn at [facility] E78.5-272.4 Hyperlipidemia, unspecified 01/29/2021 alkaline phos 228; [...] new appt for pap in June 2020-[employer] [facility] Efficiency Manager-reports pap negative-records requested Z01.89-V72.85 Encounter for screening [...]
--- OUTSIDE RECORDS SUMMARY | 2021-06-10 20:00 | XMS_ITS | CCD ---
Author Name Chivo Bishop NP Address [address] [place] [address] Phone Organization [facility] Phone Care Team Providers Care Metal Buffer Name Role Phone Palomo KING, Anna Primary Care Provider Unav ailable Unavailable Chronic Care Management Unavaila ble Summary Purpose DataExchange Insurance Providers Payer name Policy type / Coverage type Covered republican ID Effective Begin Date Effective End Date SUKI MAYO [id number] Unknown Unknown Family history Mother Diagnosis Age [...] Unknown Disability 05/31/[address]: 055704102 Has never s moked or chewed tobacco 05/31/[address]: 161024271 Never drinks alco hol 05/31/2018 Has the patient ever used illegal drugs? Unknown Has never used illegal drugs 05/31/2018 DNR Order/ Advanced Directive Unknown Full Code 05/31/2018 Allergies, Adverse Reactions, Alerts Substance Reaction Codes Entered Date Inactivated Date Status OxyContin itch, RxNorm: 598526 01/13/2021 No Inactive Da te Active *No known food allergies Unknown 09/06/2018 No I nactive Date Active Methylprednisolone hives RxNorm: 6902 09/06/2018 No Inac tive Date Active Problems Condition Codes Effective Dates Condition St atus Adjustment disorder with mix ed anxiety and depressed mood ICD-10: F43.23 ICD-9: 309.28 09/05/2018 Active COVID-19 virus RNA test resu lt positive at limit of detection ICD-10: U07.1 ICD-9: 079.89 06/10/2021 Active GERD (gastroesophageal reflu x disease) ICD-10: K21.9 ICD-9: 530.81 09/07/2019 Active Type 2 diabetes mellitus wit h peripheral neuropathy ICD-10: E11.42 ICD-9: 250.60 11/28/2019 Active Upper respiratory infection ICD-10: J06. 9 ICD-9: 465.9 06/02/2021 Active Chronic kidney disease, stag e 2 (mild) ICD-10: N18.2 ICD-9: 585.2 10/29/2020 Active Family history of seizures ICD-10: Z84.8 9 ICD-9: V19.8 04/28/2021 Active Hypertensive heart disease w ith heart failure ICD-10: I11.0 ICD-9: 402.91 04/25/2019 Active Syncope and collapse ICD-10: R55 ICD-9: 780.2 01/01/2020 Active Anorexia ICD-10: R63.0 ICD-9: 783.0 12/17/2020 Active Post-traumatic stress disord er, unspecified ICD-10: F43.10 ICD-9: 309.81 09/05/2018 Active Blister ICD-10: T14.8XXA ICD-9: 919.2 03/24/2021 Active Obstructive sleep apnea (chio lt) (pediatric) ICD-10: G47.33 ICD-9: 327.23 06/21/2019 Active Encounter for screening for tobacco use ICD-10: Z01.89 ICD-9: V72.85 01/01/2020 Active Elevated liver enzymes ICD-10: R74.8 ICD-9: 790.5 01/29/2021 Active Hyperlipidemia, unspecified ICD-10: E78. 5 ICD-9: 272.4 05/30/2018 Active History of bladder surgery ICD-10: Z98.8 [...] ICD-10: R51 ICD-9: 784.0 10/03/2018 Inactive Other mcfp (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 ICD-10: Z79.899 ICD-9: V58.69 04/25/2019 Inactive Type 2 diabetes mellitus wit hout complications ICD-10: E11.9 ICD-9: 250.00 10/03/2018 Inactive Wheezing ICD-10: R06.2 ICD-9: 786.07 08/08/2018 Inactive Abnormal urine finding ICD-10: R82.90 ICD-9: 791.9 09/24/2020 Resolved Abrasion of toe ICD-10: S90.416A ICD-9: 917.0 02/14/2020 Resolved [place] [facility] ICD-10: H10.029 ICD-9: 372.03 12/29/2019 Resolved [...] unspecified ICD-10: R60.9 ICD-9: 782.3 07/11/2018 Active group home (current) use of non-steroidal anti-inflammatories (NSAID) ICD-10: Z79.1 ICD-9: V58.64 06/13/2018 Active Medications Medication Codes Instructions Start Date Stop Date Status Fill Instructions ondansetron 4 mg disintegrating tablet RxNorm: 398966 1 Tablet(s) Oral two times a day 06/10/20 21 2020 Inactive Sudafed 12 Hour 120 mg tablet,extended release RxNorm: 6134018 TAKE 1 TABLET BY MOUTH EVERY 12 HOURS NEEDED 06/01/20 21 2021 Inactive Heartburn Relief (famotidine) 10 mg tablet RxNorm: 358755 Take 1 Tablet(s) Oral every morning 05/07/20 21 2020 Inactive omeprazole 20 mg capsule,delayed release RxNorm: 888146 1 Capsule(s) Oral every evening 04/03/20 21 2020 Inactive sertraline 100 mg tablet RxNorm: 372852 2 Tablet(s) Oral every day 03/13/202020 Inactive levothyroxine 50 mcg tablet RxNorm: 409946 TAKE (1) TABLET BY MOUTH DAILY 02/04/20 21 2020 Inactive metformin 500 mg tablet RxNorm: 224560 1 Tablet(s) Oral two times a day take with 500mg to equal 1000mg 01/14/20 21 2020 Inactive gabapentin 300 mg capsule RxNorm: 101922 TAKE 1 CAPSULE BY MOUTH THREE TIMES A DAY 01/14/20 21 2020 Inactive lisinopril 2.5 mg tablet RxNorm: 538534 TAKE 1 TABLET BY MOUTH DAILY 01/06/20 21 2020 Inactive gabapentin 300 mg capsule RxNorm: 883984 TAKE 1 CAPSULE BY MOUTH THREE TIMES A DAY 01/06/20 21 2020 Inactive Singulair 10 mg tablet RxNorm: 446448 TAKE (1) TABLET BY MOUTH DAILY 01/06/20 21 2020 Inactive metformin 1,000 mg tablet RxNorm: 536939 1 Tablet(s) Oral two times a day 01/06/20 21 2020 Inactive atorvastatin 40 mg tablet RxNorm: 290765 1 Tablet(s) Oral every day 12/06/1920 02/11/ 2021 Inactive omeprazole 20 mg capsule,delayed release RxNorm: 679695 1 Capsule(s) Oral every evening 11/24/19 21 2020 Inactive famotidine 10 mg tablet RxNorm: 212354 1 Tablet(s) Oral every morning 11/24/19 21 2020 Inactive Alcohol Prep Pads RxNorm: 376437 USE EACH MORNING 10/14/19 21 2020 Inactive omeprazole 20 mg capsule,delayed release RxNorm: 295012 1 Capsule(s) Oral two times a day 10/13/19 21 2021 Inactive omeprazole 20 mg capsule,delayed release RxNorm: 515004 TAKE 1 CAPSULE BY MOUTH EVERY DAY 10/08/192021 Inactive Macrobid 100 mg capsule RxNorm: 038173 1 Capsule(s) Oral every 12 hours with food 10/01/202020 Inactive omeprazole 20 mg capsule,delayed release RxNorm: 978248 1 Capsule(s) Oral two times a day 09/24/20 20 2021 Inactive metformin 1,000 mg tablet RxNorm: 394568 1 Tablet(s) Oral two times a day 08/19/20 20 2020 Inactive start on September 11, 2020 metformin 500 mg tablet RxNorm: 571494 1 Tablet(s) Oral two times a day take with 500mg to equal 1000mg 08/19/20 20 2019 Inactive gabapentin 300 mg capsule RxNorm: 892280 TAKE 1 CAPSULE BY MOUTH THREE TIMES DAILY 07/11/20 20 2020 Inactive cetirizine 10 mg tablet RxNorm: 6491756 TAKE (1) TABLET BY MOUTH DAILY 07/11/20 20 2020 Inactive metformin 500 mg tablet RxNorm: 808506 1 Tablet(s) Oral two times a day 07/08/20 20 2019 Inactive loperamide 2 mg tablet RxNorm: 925808 1 Tablet(s) Oral as needed take one tablet after each loose stool, maximum of 8 tablets in 24 hours 06/24/20 20 2021 Inactive Sudafed 12 Hour 120 mg tablet,extended release RxNorm: 1289126 TAKE 1 TABLET BY MOUTH EVERY 12 HOURS NEEDED 06/11/20 20 2019 Inactive hydrochlorothiazide 25 mg tablet RxNorm: 169252 TAKE (1) TABLET BY MOUTH EVERY DAY 06/11/20 20 2019 Inactive omeprazole 20 mg capsule,delayed release RxNorm: 634425 TAKE 1 CAPSULE BY MOUTH EVERY DAY 05/14/20 20 2020 Inactive metformin 500 mg tablet RxNorm: 679312 1 Tablet(s) Oral every day 05/12/20 20 2019 Inactive True Metrix Glucose Test Strip RxNorm: 1 Test Strips Miscellaneous two times a day as needed 04/17/20 No Stop Date Active metformin 500 mg tablet RxNorm: 178763 1 Tablet(s) Oral every day 04/17/20 20 2019 Inactive diclofenac sodium 75 mg tablet,delayed release RxNorm: 197347 1 Tablet(s) PO BID 04/14/20 20 2021 Inactive This refill negates all other refills of this medication Sudafed 12 Hour 120 mg tablet,extended release RxNorm: 8971665 TAKE 1 TABLET BY MOUTH EVERY 12 HOURS NEEDED 03/14/20 20 2019 Inactive True Metrix Glucose Test Strip RxNorm: 1 Test Strips Miscellaneous every morning 03/13/20 20 2019 Inactive 100/container True Metrix Glucose Test Strip RxNorm: 1 Test Strips Miscellaneous QAM 02/22/20 20 2019 Inactive 100/container loperamide 2 mg tablet RxNorm: 163100 1 Tablet(s) Oral as needed take one tablet after each loose stool, maximum of 8 tablets in 24 hours 02/22/20 20 2019 Inactive cetirizine 10 mg tablet RxNorm: 5657739 1 Tablet(s) PO daily 01/17/20 20 2019 Inactive loperamide 2 mg tablet RxNorm: 689626 1 Tablet(s) Oral as needed take one tablet after each loose stool, maximum of 8 tablets in 24 hours 01/17/20 20 2019 Inactive quetiapine 100 mg tablet RxNorm: 727269 1 Tablet(s) Oral every night at bedtime 01/17/20 20 2019 Inactive levothyroxine 50 mcg tablet RxNorm: 546975 1 Tablet(s) PO daily 01/17/20 20 2020 Inactive gabapentin 300 mg capsule RxNorm: 898255 1 Capsule(s) PO TID 01/17/20 20 2019 Inactive levothyroxine 50 mcg tablet RxNorm: 055718 1 Tablet(s) PO daily 01/15/20 20 2019 Inactive lisinopril 2.5 mg tablet RxNorm: 242158 1 Tablet(s) PO daily 01/15/20 20 2020 Inactive gabapentin 300 mg capsule RxNorm: 983978 1 Capsule(s) PO TID 01/15/20 20 2019 Inactive cetirizine 10 mg tablet RxNorm: 8554179 1 Tablet(s) PO daily 01/15/20 20 2019 Inactive Singulair 10 mg tablet RxNorm: 402238 1 Tablet(s) PO daily 01/15/20 20 2020 Inactive gentamicin 0.3 % eye drops RxNorm: 249165 1 Drop(s) ophthalmic (eye) four times a day 12/29/19 20 2019 Inactive gentamicin 0.3 % eye drops RxNorm: 945869 1 Drop(s) ophthalmic (eye) four times a day 12/29/19 20 2019 Inactive gentamicin 0.3 % eye drops RxNorm: 230408 1 Drop(s) ophthalmic (eye) four times a day 12/29/19 20 2019 Inactive hydrochlorothiazide 25 mg tablet RxNorm: 647364 1 Tablet(s) Oral every day 12/21/192019 Inactive Sudafed 12 Hour 120 mg tablet,extended release RxNorm: 4156459 TAKE (1) TABLET BY MOUTH EVERY 12 HOURS NEEDED 12/21/19 20 2019 Inactive loperamide 2 mg tablet RxNorm: 657589 1 Tablet(s) Oral as needed take one tablet after each loose stool, maximum of 8 tablets in 24 hours 12/11/19 20 2019 Inactive loperamide 2 mg tablet RxNorm: 246628 1 Tablet(s) Oral as needed take one tablet after each loose stool, maximum of 8 tablets in 24 hours 12/11/19 20 2019 Inactive atorvastatin 40 mg tablet RxNorm: 611672 1 Tablet(s) Oral every day 11/29/19 20 2020 Inactive quetiapine 100 mg tablet RxNorm: 998545 1 Tablet(s) Oral every night at bedtime 11/28/19 20 2019 Inactive sertraline 100 mg tablet RxNorm: 583773 1 Tablet(s) Oral 11/28/19 20 2019 Inactive omeprazole 20 mg capsule,delayed release RxNorm: 316135 1 Capsule(s) Oral every day 11/20/19 20 2019 Inactive amoxicillin 250 mg capsule RxNorm: 906380 1 Capsule(s) Oral three times a day 11/07/19 20 2019 Inactive multivitamin with iron-mineral tablet RxNorm: 1 Tablet(s) Oral every day 10/29/192021 Inactive cetirizine 10 mg tablet RxNorm: 4132059 1 Tablet(s) PO daily 10/20/19 20 2019 Inactive This refill negates all other refills of this medication. Please do not auto refill Singulair 10 mg tablet RxNorm: 813682 1 Tablet(s) PO daily 10/20/19 20 2019 Inactive This refill negates all other refills of this medication gabapentin 300 mg capsule RxNorm: 060833 1 Capsule(s) PO TID 10/20/192019 Inactive lisinopril 2.5 mg tablet RxNorm: 475806 1 Tablet(s) PO daily 10/20/19 20 2019 Inactive levothyroxine 50 mcg tablet RxNorm: 498650 1 Tablet(s) PO daily 10/20/192019 Inactive This refill negates all other refills of this medication fenugreek seed extract 500 mg capsule RxNorm: 1 Capsule(s) Oral three times a day 10/17/19 20 2021 Inactive hydrochlorothiazide 25 mg tablet RxNorm: 650747 1 Tablet(s) Oral every day 10/17/19 20 2019 Inactive Alcohol Prep Pads RxNorm: 407371 1 Patch TOP QAM 10/16/19 20 2020 Inactive loperamide 2 mg tablet RxNorm: 619635 1 Tablet(s) Oral as needed take one [...] 2019 Inactive hydrochlorothiazide 25 mg tablet RxNorm: 808091 1 Tablet(s) Oral every day 09/19/20 19 2019 Inactive Sudafed 12 Hour 120 mg tablet,extended release RxNorm: 6486013 1 Tablet(s) Oral every 12 hours as needed 09/11/20 19 2018 Inactive omeprazole 20 mg capsule,delayed release RxNorm: 786026 1 Capsule(s) Oral every day 09/07/20 19 2019 Inactive Sudafed 12 Hour 120 mg tablet,extended release RxNorm: 0061813 1 Tablet(s) Oral every 12 hours as needed 09/04/20 19 2018 Inactive pantoprazole 40 mg tablet,delayed release RxNorm: 975073 1 Tablet(s) Oral every day 08/24/20 19 2018 Inactive discontinue any other H2Blkr. and PPI albuterol sulfate 2.5 mg/3 mL (0.083 %) solution for nebulization RxNorm: 474998 1 Vial Inhalation every four hours as needed as needed for dyspnea 08/17/20 19 2019 Inactive 60/box. This refill negates all other refills of this medication. Please do not fill early. Please do not auto refill. Symbicort 160 mcg-4.5 mcg/actuation HFA aerosol inhaler RxNorm: 8451538 2 Puff(s) INH BID 08/17/20 19 No Stop Date Active Alcohol Prep Pads RxNorm: 551834 1 Patch TOP QAM 08/17/20 19 2019 Inactive Ventolin HFA 90 mcg/actuation aerosol inhaler RxNorm: 025621 2 Puff(s) INH QID 08/09/20 19 2019 Inactive Please do not fill early. Please do not auto refill. This refill negates all other refills of this medication True Metrix Glucose Test Strip RxNorm: 1 Test Strips Miscellaneous QAM 08/09/20 19 2019 Inactive 100/container atorvastatin 40 mg tablet RxNorm: 122495 1 Tablet(s) Oral every day 07/04/20 19 2019 Inactive levmetamfetamine 50 mg nasal inhaler RxNorm: 1 Unit(s) NASAL Q3-4H Do not use more than every 3 hours or 8 times/24hours 06/26/20 19 2021 Inactive Please do not auto refill. This refill negates all other refills of this medication buspirone 7.5 mg tablet RxNorm: 225959 1 Tablet(s) PO BID 06/26/20 19 2020 Inactive This refill negates all other refills of this medication hydrochlorothiazide 12.5 mg tablet RxNorm: 316304 1 Tablet(s) PO QAM 06/26/20 19 2019 Inactive Ventolin HFA 90 mcg/actuation aerosol inhaler RxNorm: 902925 2 Puff(s) INH QID 06/26/20 19 2018 Inactive Please do not fill early. Please do not auto refill. This refill negates all other refills of this medication Singulair 10 mg tablet RxNorm: 508479 1 Tablet(s) PO daily 06/26/20 19 2019 Inactive This refill negates all other refills of this medication cetirizine 10 mg tablet RxNorm: 0013132 1 Tablet(s) PO daily 06/26/20 19 2019 Inactive This refill negates all other refills of this medication. Please do not auto refill levothyroxine 50 mcg tablet RxNorm: 464373 1 Tablet(s) PO daily 06/26/20 19 2019 Inactive This refill negates all other refills of this medication diclofenac sodium 75 mg tablet,delayed release RxNorm: 393669 1 Tablet(s) PO BID 06/26/20 19 2019 Inactive This refill negates all other refills of this medication ranitidine 150 mg tablet RxNorm: 733523 1 Tablet(s) PO BID 06/26/20 19 2018 Inactive This refill negates all other refills of this medication Calcium 600-D3 Plus (mag-zinc) 600 mg calcium-800 unit-50 mg tablet RxNorm: 1 Tablet(s) PO daily take an additonal tablet for itching. 06/26/20 19 2018 Inactive This refill negates all other refills of this medication albuterol sulfate 2.5 mg/3 mL (0.083 %) solution for nebulization RxNorm: 931648 1 Vial INH QID 06/26/20 19 2018 Inactive 60/box. This refill negates all other refills of this medication. Please do not fill early. Please do not auto refill. lisinopril 2.5 mg tablet RxNorm: 631484 1 Tablet(s) PO daily 06/21/20 19 2019 Inactive gabapentin 300 mg capsule RxNorm: 381229 1 Capsule(s) PO TID 06/21/20 19 2019 Inactive atorvastatin 20 mg tablet RxNorm: 979961 1 Tablet(s) PO QHS 06/07/202018 Inactive This refill negates all other refills of this medication TRUEplus Lancets 30 gauge RxNorm: 1 Lancets Miscellaneous QAM 05/29/20 19 2018 Inactive 100/box gabapentin 300 mg capsule RxNorm: 244328 1 Capsule(s) PO TID 05/03/20 19 2018 Inactive Flintstones Complete (iron) 18 mg iron chewable tablet RxNorm: 1 Tablet(s) PO daily 04/04/20 19 2021 Inactive This refill negates all other refills of this medication gabapentin 300 mg capsule RxNorm: 435337 1 Capsule(s) PO TID as needed 02/01/20 19 2018 Inactive True Metrix Glucose Test Strip RxNorm: 1 Test Strips Miscellaneous QAM 02/01/20 19 2018 Inactive 100/container Alcohol Prep Pads RxNorm: 336102 1 Patch TOP QAM 02/01/20 19 2018 Inactive TRUEplus Lancets 30 gauge RxNorm: 1 Lancets Miscellaneous QAM 02/01/20 19 2018 Inactive 100/box lisinopril 2.5 mg tablet RxNorm: 438216 1 Tablet(s) PO daily 12/28/19 19 2018 Inactive ranitidine 150 mg tablet RxNorm: 288143 1 Tablet(s) PO BID 10/21/192018 Inactive This refill negates all other refills of this medication albuterol sulfate 2.5 mg/3 mL (0.083 %) solution for nebulization RxNorm: 728371 1 Vial INH QID 10/21/192018 Inactive 60/box. [...] this medication gabapentin 300 mg capsule RxNorm: 894934 1 Capsule(s) PO TID as needed 10/21/19 19 2018 Inactive atorvastatin 20 mg tablet RxNorm: 796072 1 Tablet(s) PO QHS 10/21/19 19 2018 Inactive This refill negates all other refills of this medication trazodone 50 mg tablet RxNorm: 204075 1 Tablet(s) PO QHS 10/21/19 19 2018 Inactive This refill negates all other refills of this medication Ventolin HFA 90 mcg/actuation aerosol inhaler RxNorm: 843701 2 Puff(s) INH QID 01/192018 Inactive Please do not fill early. Please do not auto refill. This refill negates all other refills of this medication Calcium 600-D3 Plus 600 mg calcium-800 unit-50 mg tablet RxNorm: 1 Tablet(s) PO daily take an additonal tablet for itching. 10/21/192018 Inactive This refill negates all other refills of this medication Singulair 10 mg tablet RxNorm: 156261 1 Tablet(s) PO daily 10/21/192018 Inactive This refill negates all other refills of this medication buspirone 7.5 mg tablet RxNorm: 676179 1 Tablet(s) PO BID 10/21/192018 Inactive This refill negates all other refills of this medication diclofenac sodium 75 mg tablet,delayed release RxNorm: 124653 1 Tablet(s) PO BID 10/21/192018 Inactive This refill negates all other refills of this medication hydrochlorothiazide 12.5 mg tablet RxNorm: 923161 1 Tablet(s) PO QAM 10/21/192018 Inactive metoprolol succinate ER 50 mg tablet,extended release 24 hr RxNorm: 850239 1 Tablet(s) PO daily 10/21/192018 Inactive This refill negates all other refills of this medication levothyroxine 50 mcg tablet RxNorm: 124434 1 Tablet(s) PO daily 10/21/192018 Inactive This refill negates all other refills of this medication cetirizine 10 mg tablet RxNorm: 0535945 1 Tablet(s) PO daily 10/21/192018 Inactive This refill negates all other refills of this medication. Please do not auto refill Flintssaranes Complete (iron) 18 mg iron chewable tablet RxNorm: 1 Tablet(s) PO daily 10/21/192018 Inactive This refill negates all other refills of this medication buspirone 7.5 mg tablet RxNorm: 192269 1 Tablet(s) PO BID 10/12/192018 Inactive cetirizine 10 mg tablet RxNorm: 3199978 1 Tablet(s) PO daily 09/28/20 18 2018 Inactive Guaiasorb DM 10 mg-100 mg/5 mL oral liquid RxNorm: 015071 10 Milliliter(s) PO As needed every 4 hr 09/24/20 18 2018 Inactive Vicks Vaporub 4.7 %-1.2 %-2.6 % topical ointment RxNorm: 1425341 1 Application TOP TID 09/24/20 18 2018 Inactive levmetamfetamine 50 mg nasal inhaler RxNorm: 1 Unit(s) NASAL Q3-4H 09/24/20 18 2017 Inactive sertraline 50 mg tablet RxNorm: 435233 1 Tablet(s) PO daily 09/09/20 18 2018 Inactive Please note dose trazodone 50 mg tablet RxNorm: 201862 1 Tablet(s) PO QHS 09/06/20 18 2018 Inactive sertraline 50 mg tablet RxNorm: 587352 1 Tablet(s) PO daily 09/06/20 18 2017 Inactive amoxicillin 500 mg tablet RxNorm: 663452 1 Tablet(s) PO Q12H 08/31/20 18 2017 Inactive albuterol sulfate 2.5 mg/3 mL (0.083 %) solution for nebulization RxNorm: 989872 1 Vial INH QID 08/10/20 18 2018 Inactive 60/box. Please do not fill early. Please do not auto refill. Prozac 10 mg capsule RxNorm: 894747 1 Capsule(s) PO daily 08/09/20 18 2017 Inactive buspirone 7.5 mg tablet RxNorm: 956679 1 Tablet(s) PO BID 08/09/20 18 2018 Inactive gabapentin 300 mg capsule RxNorm: 614515 1 Capsule(s) PO TID as needed 08/01/20 18 2018 Inactive hydrochlorothiazide 12.5 mg tablet RxNorm: 290548 1 Tablet(s) PO QAM 08/01/20 18 2018 Inactive ranitidine 150 mg tablet RxNorm: 055553 1 Tablet(s) PO BID 08/01/20 18 2018 Inactive Macrobid 100 mg capsule RxNorm: 549978 1 Capsule(s) PO Q12H 06/21/20 18 2017 Inactive Singulair 10 mg tablet RxNorm: 453253 1 Tablet(s) PO daily 06/14/20 18 2018 Inactive Ventolin HFA 90 mcg/actuation aerosol inhaler RxNorm: 8252134 2 Puff(s) INH QID 06/14/20 18 2018 Inactive Singulair 10 mg tablet RxNorm: 489532 1 Tablet(s) PO daily 06/14/20 18 2017 Inactive buspirone 7.5 mg tablet RxNorm: 122267 1 Tablet(s) PO BID 06/14/20 18 2017 Inactive Prozac 10 mg capsule RxNorm: 009586 1 Capsule(s) PO daily 06/14/20 18 2017 Inactive Neilmed Pediatric Sinus Rinse Refill packet RxNorm: 1 Unit Dose NASAL PRN 05/31/20 18 2021 Inactive diclofenac sodium 75 mg tablet,delayed release RxNorm: 803684 1 Tablet(s) PO BID 05/31/20 18 2017 Inactive lisinopril 2.5 mg tablet RxNorm: 775053 1 Tablet(s) PO daily 05/31/20 18 2017 Inactive metoprolol succinate ER 50 mg tablet,extended release 24 hr RxNorm: 259770 1 Tablet(s) PO daily 05/31/20 18 2017 Inactive levothyroxine 50 mcg tablet RxNorm: 199710 1 Tablet(s) PO daily 05/31/20 18 2017 Inactive TRUEplus Lancets 30 gauge RxNorm: 1 Lancets Miscellaneous QAM 05/31/20 18 2017 Inactive 100/box Ventolin HFA 90 mcg/actuation aerosol inhaler RxNorm: 905694 2 Puff(s) INH QID 05/31/20 18 2017 Inactive Aleve 220 mg capsule RxNorm: 1356392 1 Capsule(s) PO BID 05/31/20 18 2018 Inactive ranitidine 150 mg tablet RxNorm: 536228 1 Tablet(s) PO BID 05/31/20 18 2017 Inactive gabapentin 300 mg capsule RxNorm: 350278 1 Capsule(s) PO TID as needed 05/31/20 18 2017 Inactive atorvastatin 20 mg tablet RxNorm: 158667 1 Tablet(s) PO QHS 05/31/20 18 2017 Inactive True Metrix Glucose Test Strip RxNorm: 1 Test Strips [facility] 05/31/20 18 2017 Inactive 50/container Calcium 600-D3 Plus 600 mg calcium-800 unit-50 mg tablet RxNorm: 1 Tablet(s) PO daily take an additonal tablet for itching. 05/31/20 18 2017 Inactive hydrochlorothiazide 12.5 mg tablet RxNorm: 973846 1 Tablet(s) PO QAM 05/31/20 18 2017 Inactive Flintstones Complete (iron) 18 mg iron chewable tablet RxNorm: 1 Tablet(s) PO daily 05/31/20 18 2017 Inactive d-mannose oral powder RxNorm: PO 18 2021 Inactive True Metrix Glucose Meter RxNorm: miscellaneous 08/17/20 19 2018 Inactive sertraline 50 mg tablet RxNorm: 788723 1 Tablet(s) PO daily 11/28/19 20 2019 Inactive loperamide 2 mg tablet RxNorm: 098119 oral 09/29/20 19 2018 Inactive Symbicort 160 mcg-4.5 mcg/actuation HFA aerosol inhaler RxNorm: 5661237 2 Puff(s) INH BID 08/17/20 19 2018 Inactive Medication Administered No Medication Administered data Procedures Procedure Codes Date Frailty Screening CPT-4: SFD 05/20/2021 Hypertension CPT-4: HTN 04/01/2021 Tobacco Assessment/Screening CPT-4: TCA 08/2021 Patient Health Questionnaire CPT-4: DPHQ 08/2021 Mini Mental State Exam CPT-4: DMMA Annual Wellness Visit (Subsequent Visit) CPT-4: G0439 01/13/2021 Advanced Care Planning CPT-4: VACP Fall Risk Assessment SNOMED CT: 27558456 4 CPT-4: DFRA 01/13/2021 [place] Fany Assessment CPT-4: DSWA 12/01 Urinalysis, dip stick CPT-4: 95715 09/24/2020 Patient Health Questionnaire CPT-4: DPHQ Electrocardiogram CPT-4: 91555 05/14/2020 Tobacco Assessment/Screening CPT-4: TCA Fall Risk Assessment SNOMED CT: 86055430 4 CPT-4: DFRA 01/01/2020 Functional Assessment CPT-4: DFA 01/01/2020 [place] Fany Assessment CPT-4: DSWA 11/04 Patient Health Questionnaire CPT-4: DPHQ [place] Fany Assessment CPT-4: DSWA 10/03 Hypertension CPT-4: HTN 10/17/2019 Fall Risk Assessment SNOMED CT: 54222252 4 CPT-4: DFRA 09/19/2019 Functional Assessment CPT-4: DFA 09/19/2019 Urinalysis, dip stick CPT-4: 60906 06/21/2019 Tobacco Assessment/Screening CPT-4: TCA Patient Health Questionnaire CPT-4: DPHQ AHA/REBECCA Classification Assessment CPT-4: DAHA 04/25/2019 Controlled Substance Report CPT-4: CTRSU 04/03 Urinalysis, dip stick CPT-4: 80196 03/28/2019 Urinalysis, dip stick CPT-4: 33090 03/28/2019 [id number]-Yeqtjdgkivqhoxf CPT-4: 78693 Unknown F7F-Jjnfmobskxxkvyo CPT-4: 71633 Unknown P7B-Zakaubyzfktrbyc CPT-4: 10504 Unknown T7I-Evrpstgnylevvgr CPT-4: 03688 Unknown C8Q-Egsnhtfbqcolpot CPT-4: 30199 Unknown I0X-Nnimjjmgjfwsjen CPT-4: 36003 Unknown Z0G-Wzwrkaroctexqjr CPT-4: 90853 Unknown Gynecology Referral SNOMED CT: 823406928 CPT-4: R14 Unknown Reason For Visit Reason For Visit Effective Dates Notes diabetes mellitus 06/10/2021 nausea 06/10/2021 Encounters Encounter Performer Location Location Address Codes [place] ([id number]) (EST PT) EXPANDED PROBLEM FOCUSED TELEHEALTH VISIT Diagnosis: COVID-19 virus RNA test result positive at limit of detection[ICD10: U07.1] Diagnosis: Type 2 diabetes mellitus with peripheral neuropathy[ICD10: E11.42] Diagnosis: GERD (gastroesophageal reflux disease)[ICD10: K21.9] Diagnosis: Adjustment disorder with mixed anxiety and depressed mood[ICD10: F43.23] Chivo Bishop [place] Office [id number] [place] [address] [place] [address] CPT-4: 24019 06/10/2021 Plan of Care Planned Activity Notes Codes Status Date Visit Plan: Video and audio call using [employer] U07.1-079.89 COVID-19 virus RNA test result positive [...] this medication received new monitor [employer] through [place]-participant of [employer] on [employer] - 05/20/2021 Hemoglobin A1C 5.4 stable 10/17/2019 [place] Fany 7/10-instructed on good daily foot care [...] diabetes mellitus labs to be drawn at [facility] - has appt 06/09/2021 advised to notify office for persistent or worsening symptoms F43.23-309.28 Adjustment disorder with mixed anxiety and depressed mood reviewed previously discussed stress management routine follow up [place] [facility] 03/13/2021 PHQ 9 Score 4 Sertraline 200mg daily 04/01/2021 Functional Assessment independent with ADLs R63.0-783.0 Anorexia symptoms persistent advised to continue to try small, more frequent food intake, discussed limiting carbonated beverages as this may make her feel full taking away appetite discussed benefits of [place] [employer] not using note weight has remained stable over the past couple months-will continue to monitor I10-401.9 Essential (primary) hypertension I11.0-402.91 Hypertensive heart disease with heart failure cont hctz and lisinipril 04/01/2021 HTN assessment complete discussed lifestyle modification including weight loss and limiting sodium intake 05/20/2021 GFR >60 [facility] lab didn't provide exact number 05/14/2020 EKG [...] new appt for pap in June 2020-[facility] [facility]-reports pap negative Z01.89-V72.85 Encounter for screening for tobacco use 03/13/2021 Tobacco screen complete-patient denies ever smoking Z12.31-V76.12 (Z12.31-V76.12) Encounter for screening mammogram for malignant neoplasm of breast Z12.11-V76.51 (Z12.11-V76.51) Encounter for screening for malignant neoplasm of colon Preventative testing not indicated due to age *I reviewed the most recent CDC guidelines regarding Covid-19/Coronavirus with the patient/caregiver/designee 06/10/2021 Patient Education: Patient Medication Summary Completed 06/10/2021 Patient Education: Diabetes Complete d 06/10/2021 Appointment: Anna Culver WPtel: [address] [place] [address] [place] ETV 06/02/2021 Appointment: Chivo Bishop WPtel: [address] [place] [address] [place] 05/20/2021 Appointment: Anna Culver WPtel: [address] [place] [address] [place] ETV 04/28/2021 Appointment: Chivo Bishop WPtel: [address] [place] [id number] ETV 04/15/2021 Appointment: Anna Culver WPtel: [address] [place] [address] E410 04/01/2021 Appointment: Anna Culver WPtel: [address] [place] [address] ETV 03/24/2021 Appointment: Anna Culver WPtel: [address] [place] [address] ETV 03/13/2021 Appointment: Anna Culver WPtel: [address] [place] [address] E410 02/11/2021 Appointment: Chivo Bishop WPtel: [address] [place] [address] E410 01/29/2021 Appointment: Anna Culver WPtel: [address] [place] [address] ETV 01/13/2021 Appointment: Anna Culver WPtel: [address] [place] [address] E410 12/17/2020 Appointment: Chivo Bishop WPtel: [address] [place] [address] ETV 11/28/2020 Appointment: Anna Culver WPtel: [address] [place] [address] ETV 11/24/2020 Appointment: Anna Culver WPtel: [address] [place] [address] E410 10/29/2020 Appointment: Anna Culver WPtel: [address] [place] [address] E410 09/24/2020 Appointment: Anna Culver WPtel: [id number] [place] [address] ETV 08/26/2020 Appointment: Anna Culver WPtel: [address] [place] [address] ETV 08/19/2020 Appointment: Anna Culver WPtel: [address] [place] [address] ETV 07/22/2020 Appointment: Anna Culver WPtel: [address] [place] [address] ETV 07/08/2020 Appointment: Gianna Birmingham: [facility] [address] [place] ECHO 07/02/2020 Appointment: Anna Culver WPtel: [address] [place] [address] E452 06/11/2020 Appointment: Anna Culver WPtel: [address] [place] [address] E452 05/14/2020 Appointment: Anna Culver WPtel: [address] [place] [address] E452 04/17/2020 Appointment: Anna Culver WPtel: [address] [place] [address] E452 03/21/2020 Appointment: Anna Culver WPtel: [address] [place] [address] [place] E452 02/14/2020 Appointment: Anna Culver WPtel: [address] [place] [address] [place] E452 01/24/2020 Appointment: Anna Culver WPtel: [address] [place] [address] [place] E452 01/01/2020 Appointment: Anna Culver WPtel: [address] [place] [address] E452 11/28/2019 Appointment: Anna Culver WPtel: [address] [place] [address] E452 10/17/2019 Appointment: Anna Culver WPtel: [address] [place] [address] E452 09/19/2019 Appointment: Sudha Hernadez WPtel: [address] [place] [address] [id number] E452 07/04/2019 Appointment: Sudha Hernadez WPtel: [facility] [id number] E452 06/21/2019 Appointment: Charlene Oropeza WPtel: [address] [place] [address] [id number] E452 05/24/2019 Appointment: Mallory Delgado E452 04/27/2019 Appointment: Charlene Oropeza WPtel: [address] [place] [address] [id number] E452 04/25/2019 Appointment: Rasta Palafox WPtel: [address] [facility] [id number] E452 03/28/2019 Appointment: Rasta Palafox WPtel: [facility] [id number] E452 02/14/2019 Appointment: Rasta Palafox WPtel: [address] [facility] [id number] E452 01/31/2019 Appointment: Rasta Palafox WPtel: [address] [facility] [id number] E420 12/27/2018 Referral: Pending Gynecology Referral Information Referral Processed Referral: Pending Pulmonolog y Referral Information Referral Processed Referral: Pending Psychiatry Referral Information Referral Initiated Referral: Pending Respirator y Services Referral Information Referral Initiated Referral: Pending Ophthalmology Referral Information Referral Initiated Referral: [facility] WPtel: [address] [facility] [address] Rehabilitation Director placed a call out to the patient to notify her that it has been recommended that she be seen by 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 Patient agreed to be seen, does not have a provider of choice and no transportation issues. Rehabilitation Director faxed referral and clinical notes to [facility] in [place], [place] near the patient's home. Patient to [...] seen and prefers a provider in the [place] or [place] area. Rehabilitation Director placed a call out to everyone listed in the area and the only location that was able to accept the patient's insurance was [place] [address] [place] [address] and spoke with Maylin. Maylin asked that the patient's referral, face sheet and visit notes be faxed to . Rehabilitation Director faxed over requested documents. Patient appointment confirmation letter generated and mailed to her home address. Patient to call to schedule an appointment. [facility]: [address] [facility] [address] [place], [place] [id number] Patient notified that it has been advised that she be seen by Neurology. Patient agreed to be seen and prefers to be seen by a provider in the [place], [place] area. Patient denies any concerns with transportation, and prefers to schedule her own appointment. Rehabilitation Director [facility] and spoke with Neeraj P: [...] Assessment and plan reviewed with patient . Video and audio call using [employer] U06.1-679.56 COVID-19 virus RNA test result positive at [...] adjustments to this medication received new monitor Carena through [employer]-participant of [place] on demand - 05/20/2021 Hemoglobin A1C 5.4; stable 10/17/2019 [place] Fany 7/10-instructed on good daily foot care [...] diabetes mellitus labs to be drawn at [facility] neurology - has appt 06/09/2021 advised to notify office for persistent or worsening symptoms F43.23-309.28 Adjustment disorder with mixed anxiety and depressed mood reviewed previously discussed stress management routine follow up [place] [facility] 03/13/2021 PHQ 9 Score 4 Sertraline 200mg daily 04/01/2021 Functional Assessment independent with ADLs R63.0-783.0 Anorexia symptoms persistent advised to continue to try small, more frequent food intake, discussed limiting carbonated beverages as this may make her feel full taking away appetite discussed benefits of [employer] [employer] not using note weight has remained stable over the past couple months-will continue to monitor I10-401.9 Essential (primary) hypertension I11.0-402.91 Hypertensive heart disease with heart failure cont hctz and lisinipril 04/01/2021 HTN assessment complete discussed lifestyle modification including weight loss and limiting sodium intake 05/20/2021 GFR >60 [place] lab didn't provide exact number 05/14/2020 EKG [...] new appt for pap in June 2020-[facility]-reports pap negative Z01.89-V72.85 Encounter for screening for [...]
--- OUTSIDE RECORDS SUMMARY | 2021-07-06 20:00 | XMS_ITS | CCD ---
Author Name Chivo Bishop NP Address [address] [place] [address] Phone Organization [facility] Phone Care Team Providers Care Technical Programs Manager Name Role Phone Palomo KING, Anna Primary Care Provider Unav ailable Unavailable Chronic Care Management Unavaila ble Summary Purpose DataExchange Insurance Providers Payer name Policy type / Coverage type Covered democrat ID Effective Begin Date Effective End Date SUKI MAYO [id number] Unknown Unknown Family history Mother Diagnosis Age [...] Unknown Disability 05/31/[address]: 646438666 Has never s moked or chewed tobacco 05/31/[address]: 849632754 Never drinks alco hol 05/31/2018 Has the patient ever used illegal drugs? Unknown Has never used illegal drugs 05/31/2018 DNR Order/ Advanced Directive Unknown Full Code 05/31/2018 Allergies, Adverse Reactions, Alerts Substance Reaction Codes Entered Date Inactivated Date Status OxyContin itch, RxNorm: 284319 01/13/2021 No Inactive Da te Active *No known food allergies Unknown 09/06/2018 No I nactive Date Active Methylprednisolone hives RxNorm: 6902 09/06/2018 No Inac tive Date Active Problems Condition Codes Effective Dates Condition St atus Dyspnea, unspecified ICD-10: R06.00 ICD-9: 786.09 02/08/2019 Active GERD (gastroesophageal reflu x disease) ICD-10: K21.9 ICD-9: 530.81 09/07/2019 Active Hyperlipidemia, unspecified ICD-10: E78. 5 ICD-9: 272.4 05/30/2018 Active Type 2 diabetes mellitus wit h peripheral neuropathy ICD-10: E11.42 ICD-9: 250.60 11/28/2019 Active Adjustment disorder with mix ed anxiety and depressed mood ICD-10: F43.23 ICD-9: 309.28 09/05/2018 Active COVID-19 virus RNA test resu lt positive at limit of detection ICD-10: U07.1 ICD-9: 079.89 06/10/2021 Active Upper respiratory infection ICD-10: J06. 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 ICD-10: Z79.899 ICD-9: V58.69 04/25/2019 Inactive Type 2 diabetes mellitus wit hout complications ICD-10: E11.9 ICD-9: 250.00 10/03/2018 Inactive Wheezing ICD-10: R06.2 ICD-9: 786.07 08/08/2018 Inactive Abnormal urine finding ICD-10: R82.90 ICD-9: 791.9 09/24/2020 Resolved Abrasion of toe ICD-10: S90.416A ICD-9: 917.0 02/14/2020 Resolved [place] ICD-10: H10.029 ICD-9: 372.03 12/29/2019 Resolved [...] Seen ICD-10: UXZ.01 ICD-9: XZ0.1 04/27/2019 Active Abnormal electrocardiogram [ ECG] [EKG] ICD-10: R94.31 ICD-9: 794.31 05/30/2018 Active Edema, unspecified ICD-10: R60.9 ICD-9: 782.3 07/11/2018 Active senior living (current) use of non-steroidal anti-inflammatories (NSAID) ICD-10: Z79.1 ICD-9: V58.64 06/13/2018 Active Medications Medication Codes Instructions Start Date Stop Date Status Fill Instructions hydrochlorothiazide 25 mg tablet RxNorm: 323046 Take 1 Tablet(s) Oral every day 06/12/20 21 2020 Inactive ondansetron 4 mg disintegrating tablet RxNorm: 812159 1 Tablet(s) Oral two times a day 06/10/20 21 2020 Inactive Sudafed 12 Hour 120 mg tablet,extended release RxNorm: 7778714 TAKE 1 TABLET BY MOUTH EVERY 12 HOURS NEEDED 06/01/20 21 2021 Inactive Heartburn Relief (famotidine) 10 mg tablet RxNorm: 366935 Take 1 Tablet(s) Oral every morning 05/07/20 21 2020 Inactive omeprazole 20 mg capsule,delayed release RxNorm: 166725 1 Capsule(s) Oral every evening 04/03/20 21 2020 Inactive sertraline 100 mg tablet RxNorm: 409674 2 Tablet(s) Oral every day 03/13/20 21 2020 Inactive levothyroxine 50 mcg tablet RxNorm: 819382 TAKE (1) TABLET BY MOUTH DAILY 02/04/20 21 2020 Inactive metformin 500 mg tablet RxNorm: 779303 1 Tablet(s) Oral two times a day take with 500mg to equal 1000mg 01/14/20 21 2020 Inactive gabapentin 300 mg capsule RxNorm: 566840 TAKE 1 CAPSULE BY MOUTH THREE TIMES A DAY 01/14/20 21 2020 Inactive lisinopril 2.5 mg tablet RxNorm: 249716 TAKE 1 TABLET BY MOUTH DAILY 01/06/20 21 2020 Inactive gabapentin 300 mg capsule RxNorm: 395040 TAKE 1 CAPSULE BY MOUTH THREE TIMES A DAY 01/06/20 21 2020 Inactive Singulair 10 mg tablet RxNorm: 138393 TAKE (1) TABLET BY MOUTH DAILY 01/06/20 21 2020 Inactive metformin 1,000 mg tablet RxNorm: 086956 1 Tablet(s) Oral two times a day 01/06/20 21 2020 Inactive atorvastatin 40 mg tablet RxNorm: 310614 1 Tablet(s) Oral every day 12/06/19 21 2020 Inactive omeprazole 20 mg capsule,delayed release RxNorm: 838192 1 Capsule(s) Oral every evening 11/24/19 21 2020 Inactive famotidine 10 mg tablet RxNorm: 663196 1 Tablet(s) Oral every morning 11/24/19 21 2020 Inactive Alcohol Prep Pads RxNorm: 479839 USE EACH MORNING 10/14/19 21 2020 Inactive omeprazole 20 mg capsule,delayed release RxNorm: 043583 1 Capsule(s) Oral two times a day 10/13/19 21 2021 Inactive omeprazole 20 mg capsule,delayed release RxNorm: 639565 TAKE 1 CAPSULE BY MOUTH EVERY DAY 10/08/19 21 2021 Inactive Macrobid 100 mg capsule RxNorm: 794996 1 Capsule(s) Oral every 12 hours with food 10/01/20 20 2020 Inactive omeprazole 20 mg capsule,delayed release RxNorm: 842035 1 Capsule(s) Oral two times a day 09/24/20 20 2021 Inactive metformin 1,000 mg tablet RxNorm: 380166 1 Tablet(s) Oral two times a day 08/19/20 20 2020 Inactive start on September 11, 2020 metformin 500 mg tablet RxNorm: 043276 1 Tablet(s) Oral two times a day take with 500mg to equal 1000mg 08/19/20 20 2019 Inactive gabapentin 300 mg capsule RxNorm: 864297 TAKE 1 CAPSULE BY MOUTH THREE TIMES DAILY 07/11/20 20 2020 Inactive cetirizine 10 mg tablet RxNorm: 1956150 TAKE (1) TABLET BY MOUTH DAILY 07/11/20 20 2020 Inactive metformin 500 mg tablet RxNorm: 525820 1 Tablet(s) Oral two times a day 07/08/20 20 2019 Inactive loperamide 2 mg tablet RxNorm: 686584 1 Tablet(s) Oral as needed take one tablet after each loose stool, maximum of 8 tablets in 24 hours 06/24/20 20 2021 Inactive Sudafed 12 Hour 120 mg tablet,extended release RxNorm: 7223983 TAKE 1 TABLET BY MOUTH EVERY 12 HOURS NEEDED 06/11/20 20 2019 Inactive hydrochlorothiazide 25 mg tablet RxNorm: 476053 TAKE (1) TABLET BY MOUTH EVERY DAY 06/11/20 20 2019 Inactive omeprazole 20 mg capsule,delayed release RxNorm: 750331 TAKE 1 CAPSULE BY MOUTH EVERY DAY 05/14/20 20 2020 Inactive metformin 500 mg tablet RxNorm: 490275 1 Tablet(s) Oral every day 05/12/20 20 2019 Inactive True Metrix Glucose Test Strip RxNorm: 1 Test Strips Miscellaneous two times a day as needed 04/17/20 No Stop Date Active metformin 500 mg tablet RxNorm: 504777 1 Tablet(s) Oral every day 04/17/20 20 2019 Inactive diclofenac sodium 75 mg tablet,delayed release RxNorm: 055477 1 Tablet(s) PO BID 04/14/20 20 2021 Inactive This refill negates all other refills of this medication Sudafed 12 Hour 120 mg tablet,extended release RxNorm: 6501944 TAKE 1 TABLET BY MOUTH EVERY 12 HOURS NEEDED 03/14/20 20 2019 Inactive True Metrix Glucose Test Strip RxNorm: 1 Test Strips Miscellaneous every morning 03/13/20 20 2019 Inactive 100/container True Metrix Glucose Test Strip RxNorm: 1 Test Strips Miscellaneous QA 02/22/20 20 2019 Inactive 100/container loperamide 2 mg tablet RxNorm: 261893 1 Tablet(s) Oral as needed take one tablet after each loose stool, maximum of 8 tablets in 24 hours 02/22/20 20 2019 Inactive cetirizine 10 mg tablet RxNorm: 0022553 1 Tablet(s) PO daily 01/17/20 20 2019 Inactive loperamide 2 mg tablet RxNorm: 917339 1 Tablet(s) Oral as needed take one tablet after each loose stool, maximum of 8 tablets in 24 hours 01/17/20 20 2019 Inactive quetiapine 100 mg tablet RxNorm: 553955 1 Tablet(s) Oral every night at bedtime 01/17/20 20 2019 Inactive levothyroxine 50 mcg tablet RxNorm: 001105 1 Tablet(s) PO daily 01/17/20 20 2020 Inactive gabapentin 300 mg capsule RxNorm: 914587 1 Capsule(s) PO TID 01/17/20 20 2019 Inactive levothyroxine 50 mcg tablet RxNorm: 860012 1 Tablet(s) PO daily 01/15/20 20 2019 Inactive lisinopril 2.5 mg tablet RxNorm: 071311 1 Tablet(s) PO daily 01/15/20 20 2020 Inactive gabapentin 300 mg capsule RxNorm: 722307 1 Capsule(s) PO TID 01/15/20 20 2019 Inactive cetirizine 10 mg tablet RxNorm: 0570664 1 Tablet(s) PO daily 01/15/20 20 2019 Inactive Singulair 10 mg tablet RxNorm: 072535 1 Tablet(s) PO daily 01/15/20 20 2020 Inactive gentamicin 0.3 % eye drops RxNorm: 121948 1 Drop(s) ophthalmic (eye) four times a day 12/29/19 20 2019 Inactive gentamicin 0.3 % eye drops RxNorm: 866079 1 Drop(s) ophthalmic (eye) four times a day 12/29/19 20 2019 Inactive gentamicin 0.3 % eye drops RxNorm: 808270 1 Drop(s) ophthalmic (eye) four times a day 12/29/19 20 2019 Inactive hydrochlorothiazide 25 mg tablet RxNorm: 486269 1 Tablet(s) Oral every day 12/21/19 20 2019 Inactive Sudafed 12 Hour 120 mg tablet,extended release RxNorm: 7240455 TAKE (1) TABLET BY MOUTH EVERY 12 HOURS NEEDED 12/21/192019 Inactive loperamide 2 mg tablet RxNorm: 827993 1 Tablet(s) Oral as needed take one tablet after each loose stool, maximum of 8 tablets in 24 hours 12/11/19 2019 Inactive loperamide 2 mg tablet RxNorm: 959642 1 Tablet(s) Oral as needed take one tablet after each loose stool, maximum of 8 tablets in 24 hours 12/11/19 20 2019 Inactive atorvastatin 40 mg tablet RxNorm: 076727 1 Tablet(s) Oral every day 11/29/19 20 2020 Inactive quetiapine 100 mg tablet RxNorm: 564427 1 Tablet(s) Oral every night at bedtime 11/28/19 20 2019 Inactive sertraline 100 mg tablet RxNorm: 124643 1 Tablet(s) Oral 11/28/19 20 2019 Inactive omeprazole 20 mg capsule,delayed release RxNorm: 021514 1 Capsule(s) Oral every day 11/20/19 20 2019 Inactive amoxicillin 250 mg capsule RxNorm: 337036 1 Capsule(s) Oral three times a day 11/07/19 20 2019 Inactive multivitamin with iron-mineral tablet RxNorm: 1 Tablet(s) Oral every day 10/29/19 20 2021 Inactive cetirizine 10 mg tablet RxNorm: 7641901 1 Tablet(s) PO daily 10/20/19 20 2019 Inactive This refill negates all other refills of this medication. Please do not auto refill Singulair 10 mg tablet RxNorm: 662580 1 Tablet(s) PO daily 10/20/19 20 2019 Inactive This refill negates all other refills of this medication gabapentin 300 mg capsule RxNorm: 899646 1 Capsule(s) PO TID 10/20/19 20 2019 Inactive lisinopril 2.5 mg tablet RxNorm: 997132 1 Tablet(s) PO daily 10/20/19 20 2019 Inactive levothyroxine 50 mcg tablet RxNorm: 560328 1 Tablet(s) PO daily 10/20/19 20 2019 Inactive This refill negates all other refills of this medication fenugreek seed extract 500 mg capsule RxNorm: 1 Capsule(s) Oral three times a day 10/17/19 20 2021 Inactive hydrochlorothiazide 25 mg tablet RxNorm: 145798 1 Tablet(s) Oral every day 10/17/19 20 2019 Inactive Alcohol Prep Pads RxNorm: 603203 1 Patch TOP QAM 10/16/19 20 2020 Inactive loperamide 2 mg tablet RxNorm: 114297 1 Tablet(s) Oral as needed take one [...] 2019 Inactive hydrochlorothiazide 25 mg tablet RxNorm: 970608 1 Tablet(s) Oral every day 09/19/20 19 2019 Inactive Sudafed 12 Hour 120 mg tablet,extended release RxNorm: 9706116 1 Tablet(s) Oral every 12 hours as needed 09/11/20 19 2018 Inactive omeprazole 20 mg capsule,delayed release RxNorm: 332178 1 Capsule(s) Oral every day 09/07/20 19 2019 Inactive Sudafed 12 Hour 120 mg tablet,extended release RxNorm: 9096382 1 Tablet(s) Oral every 12 hours as needed 09/04/20 19 2018 Inactive pantoprazole 40 mg tablet,delayed release RxNorm: 953400 1 Tablet(s) Oral every day 08/24/20 19 2018 Inactive discontinue any other H2Blkr. and PPI albuterol sulfate 2.5 mg/3 mL (0.083 %) solution for nebulization RxNorm: 240038 1 Vial Inhalation every four hours as needed as needed for dyspnea 08/17/20 19 2019 Inactive 60/box. This refill negates all other refills of this medication. Please do not fill early. Please do not auto refill. Symbicort 160 mcg-4.5 mcg/actuation HFA aerosol inhaler RxNorm: 1665758 2 Puff(s) INH BID 08/17/20 19 No Stop Date Active Alcohol Prep Pads RxNorm: 857540 1 Patch TOP QAM 08/17/20 19 2019 Inactive Ventolin HFA 90 mcg/actuation aerosol inhaler RxNorm: 148011 2 Puff(s) INH QID 08/09/20 19 2019 Inactive Please do not fill early. Please do not auto refill. This refill negates all other refills of this medication True Metrix Glucose Test Strip RxNorm: 1 Test Strips Miscellaneous QAM 08/09/20 19 2019 Inactive 100/container atorvastatin 40 mg tablet RxNorm: 309708 1 Tablet(s) Oral every day 07/04/20 19 2019 Inactive levmetamfetamine 50 mg nasal inhaler RxNorm: 1 Unit(s) NASAL Q3-4H Do not use more than every 3 hours or 8 times/24hours 06/26/20 19 2021 Inactive Please do not auto refill. This refill negates all other refills of this medication buspirone 7.5 mg tablet RxNorm: 178915 1 Tablet(s) PO BID 06/26/20 19 2020 Inactive This refill negates all other refills of this medication hydrochlorothiazide 12.5 mg tablet RxNorm: 811946 1 Tablet(s) PO QAM 06/26/20 19 2019 Inactive Ventolin HFA 90 mcg/actuation aerosol inhaler RxNorm: 068005 2 Puff(s) INH QID 06/26/20 19 2018 Inactive Please do not fill early. Please do not auto refill. This refill negates all other refills of this medication Singulair 10 mg tablet RxNorm: 862934 1 Tablet(s) PO daily 06/26/20 19 2019 Inactive This refill negates all other refills of this medication cetirizine 10 mg tablet RxNorm: 1658406 1 Tablet(s) PO daily 06/26/20 19 2019 Inactive This refill negates all other refills of this medication. Please do not auto refill levothyroxine 50 mcg tablet RxNorm: 103249 1 Tablet(s) PO daily 06/26/20 19 2019 Inactive This refill negates all other refills of this medication diclofenac sodium 75 mg tablet,delayed release RxNorm: 857399 1 Tablet(s) PO BID 06/26/20 19 2019 Inactive This refill negates all other refills of this medication ranitidine 150 mg tablet RxNorm: 898300 1 Tablet(s) PO BID 06/26/20 19 2018 Inactive This refill negates all other refills of this medication Calcium 600-D3 Plus (mag-zinc) 600 mg calcium-800 unit-50 mg tablet RxNorm: 1 Tablet(s) PO daily take an additonal tablet for itching. 06/26/20 19 2018 Inactive This refill negates all other refills of this medication albuterol sulfate 2.5 mg/3 mL (0.083 %) solution for nebulization RxNorm: 173673 1 Vial INH QID 06/26/20 19 2018 Inactive 60/box. This refill negates all other refills of this medication. Please do not fill early. Please do not auto refill. lisinopril 2.5 mg tablet RxNorm: 585000 1 Tablet(s) PO daily 06/21/20 19 2019 Inactive gabapentin 300 mg capsule RxNorm: 715423 1 Capsule(s) PO TID 06/21/20 19 2019 Inactive atorvastatin 20 mg tablet RxNorm: 569196 1 Tablet(s) PO QHS 06/07/20 19 2018 Inactive This refill negates all other refills of this medication TRUEplus Lancets 30 gauge RxNorm: 1 Lancets Miscellaneous QAM 05/29/20 19 2018 Inactive 100/box gabapentin 300 mg capsule RxNorm: 593960 1 Capsule(s) PO TID 05/03/20 19 2018 Inactive Flintstones Complete (iron) 18 mg iron chewable tablet RxNorm: 1 Tablet(s) PO daily 04/04/20 19 2021 Inactive This refill negates all other refills of this medication gabapentin 300 mg capsule RxNorm: 602109 1 Capsule(s) PO TID as needed 02/01/20 19 2018 Inactive True Metrix Glucose Test Strip RxNorm: 1 Test Strips Miscellaneous QAM 02/01/20 19 2018 Inactive 100/container Alcohol Prep Pads RxNorm: 434406 1 Patch TOP QAM 02/01/20 19 2018 Inactive TRUEplus Lancets 30 gauge RxNorm: 1 Lancets Miscellaneous QAM 02/01/20 19 2018 Inactive 100/box lisinopril 2.5 mg tablet RxNorm: 121306 1 Tablet(s) PO daily 12/28/19 19 2018 Inactive ranitidine 150 mg tablet RxNorm: 796638 1 Tablet(s) PO BID 10/21/19 19 2018 Inactive This refill negates all other refills of this medication albuterol sulfate 2.5 mg/3 mL (0.083 %) solution for nebulization RxNorm: 030186 1 Vial INH QID 10/21/19 19 2018 [...] this medication gabapentin 300 mg capsule RxNorm: 047580 1 Capsule(s) PO TID as needed 10/21/192018 Inactive atorvastatin 20 mg tablet RxNorm: 857634 1 Tablet(s) PO QHS 10/21/19 19 2018 Inactive This refill negates all other refills of this medication trazodone 50 mg tablet RxNorm: 989916 1 Tablet(s) PO QHS 10/21/19 19 2018 Inactive This refill negates all other refills of this medication Ventolin HFA 90 mcg/actuation aerosol inhaler RxNorm: 722883 2 Puff(s) INH QID 10/21/19 19 2018 Inactive Please do not fill early. Please do not auto refill. This refill negates all other refills of this medication Calcium 600-D3 Plus 600 mg calcium-800 unit-50 mg tablet RxNorm: 1 Tablet(s) PO daily take an additonal tablet for itching. 10/21/192018 Inactive This refill negates all other refills of this medication Singulair 10 mg tablet RxNorm: 541082 1 Tablet(s) PO daily 10/21/192018 Inactive This refill negates all other refills of this medication buspirone 7.5 mg tablet RxNorm: 175656 1 Tablet(s) PO BID 10/21/192018 Inactive This refill negates all other refills of this medication diclofenac sodium 75 mg tablet,delayed release RxNorm: 951605 1 Tablet(s) PO BID 10/21/19 19 2018 Inactive This refill negates all other refills of this medication hydrochlorothiazide 12.5 mg tablet RxNorm: 769614 1 Tablet(s) PO QAM 10/21/192018 Inactive metoprolol succinate ER 50 mg tablet,extended release 24 hr RxNorm: 050387 1 Tablet(s) PO daily 10/21/192018 Inactive This refill negates all other refills of this medication levothyroxine 50 mcg tablet RxNorm: 704990 1 Tablet(s) PO daily 10/21/192018 Inactive This refill negates all other refills of this medication cetirizine 10 mg tablet RxNorm: 6091168 1 Tablet(s) PO daily 10/21/192018 Inactive This refill negates all other refills of this medication. Please do not auto refill Flintstones Complete (iron) 18 mg iron chewable tablet RxNorm: 1 Tablet(s) PO daily 10/21/192018 Inactive This refill negates all other refills of this medication buspirone 7.5 mg tablet RxNorm: 503862 1 Tablet(s) PO BID 10/12/19 19 2018 Inactive cetirizine 10 mg tablet RxNorm: 8058809 1 Tablet(s) PO daily 09/28/20 18 2018 Inactive Guaiasorb DM 10 mg-100 mg/5 mL oral liquid RxNorm: 574172 10 Milliliter(s) PO As needed every 4 hr 09/24/20 18 2018 Inactive Vicks Vaporub 4.7 %-1.2 %-2.6 % topical ointment RxNorm: 2900759 1 Application TOP TID 09/24/20 18 2018 Inactive levmetamfetamine 50 mg nasal inhaler RxNorm: 1 Unit(s) NASAL Q3-4H 09/24/20 18 2017 Inactive sertraline 50 mg tablet RxNorm: 793309 1 Tablet(s) PO daily 09/09/20 18 2018 Inactive Please note dose trazodone 50 mg tablet RxNorm: 208869 1 Tablet(s) PO QHS 09/06/20 18 2018 Inactive sertraline 50 mg tablet RxNorm: 541322 1 Tablet(s) PO daily 09/06/20 18 2017 Inactive amoxicillin 500 mg tablet RxNorm: 370462 1 Tablet(s) PO Q12H 08/31/20 18 2017 Inactive albuterol sulfate 2.5 mg/3 mL (0.083 %) solution for nebulization RxNorm: 269337 1 Vial INH QID 08/10/20 18 2018 Inactive 60/box. Please do not fill early. Please do not auto refill. Prozac 10 mg capsule RxNorm: 075144 1 Capsule(s) PO daily 08/09/20 18 2017 Inactive buspirone 7.5 mg tablet RxNorm: 066171 1 Tablet(s) PO BID 08/09/20 18 2018 Inactive gabapentin 300 mg capsule RxNorm: 367090 1 Capsule(s) PO TID as needed 08/01/20 18 2018 Inactive hydrochlorothiazide 12.5 mg tablet RxNorm: 539119 1 Tablet(s) PO QAM 08/01/20 18 2018 Inactive ranitidine 150 mg tablet RxNorm: 174827 1 Tablet(s) PO BID 08/01/20 18 2018 Inactive Macrobid 100 mg capsule RxNorm: 663171 1 Capsule(s) PO Q12H 06/21/20 18 2017 Inactive Singulair 10 mg tablet RxNorm: 911234 1 Tablet(s) PO daily 06/14/20 18 2018 Inactive Ventolin HFA 90 mcg/actuation aerosol inhaler RxNorm: 4562778 2 Puff(s) INH QID 06/14/20 18 2018 Inactive Singulair 10 mg tablet RxNorm: 407448 1 Tablet(s) PO daily 06/14/20 18 2017 Inactive buspirone 7.5 mg tablet RxNorm: 567694 1 Tablet(s) PO BID 06/14/20 18 2017 Inactive Prozac 10 mg capsule RxNorm: 950070 1 Capsule(s) PO daily 06/14/20 18 2017 Inactive Neilmed Pediatric Sinus Rinse Refill packet RxNorm: 1 Unit Dose NASAL PRN 05/31/20 18 2021 Inactive diclofenac sodium 75 mg tablet,delayed release RxNorm: 700121 1 Tablet(s) PO BID 05/31/20 18 2017 Inactive lisinopril 2.5 mg tablet RxNorm: 546389 1 Tablet(s) PO daily 05/31/20 18 2017 Inactive metoprolol succinate ER 50 mg tablet,extended release 24 hr RxNorm: 139677 1 Tablet(s) PO daily 05/31/20 18 2017 Inactive levothyroxine 50 mcg tablet RxNorm: 725991 1 Tablet(s) PO daily 05/31/20 18 2017 Inactive TRUEplus Lancets 30 gauge RxNorm: 1 Lancets Miscellaneous QAM 05/31/20 18 2017 Inactive 100/box Ventolin HFA 90 mcg/actuation aerosol inhaler RxNorm: 179014 2 Puff(s) INH QID 05/31/20 18 2017 Inactive Aleve 220 mg capsule RxNorm: 2686220 1 Capsule(s) PO BID 05/31/20 18 2018 Inactive ranitidine 150 mg tablet RxNorm: 396021 1 Tablet(s) PO BID 05/31/20 18 2017 Inactive gabapentin 300 mg capsule RxNorm: 541819 1 Capsule(s) PO TID as needed 05/31/20 18 2017 Inactive atorvastatin 20 mg tablet RxNorm: 844443 1 Tablet(s) PO QHS 05/31/20 18 2017 Inactive True Metrix Glucose Test Strip RxNorm: 1 Test Strips Miscellaneous QAM 05/31/20 18 2017 Inactive 50/container Calcium 600-D3 Plus 600 mg calcium-800 unit-50 mg tablet RxNorm: 1 Tablet(s) PO daily take an additonal tablet for itching. 05/31/20 18 2017 Inactive hydrochlorothiazide 12.5 mg tablet RxNorm: 932756 1 Tablet(s) PO QAM 05/31/20 18 2017 Inactive Flintstones Complete (iron) 18 mg iron chewable tablet RxNorm: 1 Tablet(s) PO daily 05/31/20 18 2017 Inactive d-mannose oral powder RxNorm: PO 18 2021 Inactive True Metrix Glucose Meter RxNorm: miscellaneous 08/17/20 19 2018 Inactive sertraline 50 mg tablet RxNorm: 779904 1 Tablet(s) PO daily 11/28/19 20 2019 Inactive loperamide 2 mg tablet RxNorm: 692995 oral 09/29/20 19 2018 Inactive Symbicort 160 mcg-4.5 mcg/actuation HFA aerosol inhaler RxNorm: 3319656 2 Puff(s) INH BID 08/17/20 19 2018 Inactive Medication Administered No Medication Administered data Procedures Procedure Codes Date Frailty Screening CPT-4: SFD 05/20/2021 Hypertension CPT-4: HTN 04/01/2021 Tobacco Assessment/Screening CPT-4: TCA 08/2021 Patient Health Questionnaire CPT-4: DPHQ 08/2021 Mini Mental State Exam CPT-4: DMMA Annual Wellness Visit (Subsequent Visit) CPT-4: G0439 01/13/2021 Advanced Care Planning CPT-4: VACP Fall Risk Assessment SNOMED CT: 14950562 4 CPT-4: DFRA 01/13/2021 [place] Assessment CPT-4: DSWA 12/01 Urinalysis, dip stick CPT-4: 61576 09/24/2020 Patient Health Questionnaire CPT-4: DPHQ Electrocardiogram CPT-4: 08422 05/14/2020 Tobacco Assessment/Screening CPT-4: TCA Fall Risk Assessment SNOMED CT: 58730532 4 CPT-4: DFRA 01/01/2020 Functional Assessment CPT-4: DFA 01/01/2020 [place] F[place] Assessment CPT-4: DSWA 11/04 Patient Health Questionnaire CPT-4: DPHQ [place] Fany Assessment CPT-4: DSWA 10/03 Hypertension CPT-4: HTN 10/17/2019 Fall Risk Assessment SNOMED CT: 48030679 4 CPT-4: DFRA 09/19/2019 Functional Assessment CPT-4: DFA 09/19/2019 Urinalysis, dip stick CPT-4: 77298 06/21/2019 Tobacco Assessment/Screening CPT-4: TCA Patient Health Questionnaire CPT-4: DPHQ AHA/REBECCA Classification Assessment CPT-4: DAHA 04/25/2019 Controlled Substance Report CPT-4: CTRSU 04/03 Urinalysis, dip stick CPT-4: 87271 03/28/2019 Urinalysis, dip stick CPT-4: 80654 03/28/2019 X4X-Pixnjqwjjfqzccg CPT-4: 86481 Unknown V8K-Renngadudjhfngm CPT-4: 74048 Unknown W6K-Jpugovswjobnpdz CPT-4: 70700 Unknown D8C-Nekltutffqncgbh CPT-4: 98507 Unknown I7P-Ujkeurqvmdzghpb CPT-4: 03816 Unknown X1C-Qwspkewntpfjvfa CPT-4: 25374 Unknown J2J-Krghivpabqzvfez CPT-4: 95249 Unknown Gynecology Referral SNOMED CT: 974196565 CPT-4: R14 Unknown Reason For Visit Reason For Visit Effective Dates Notes hyperlipidemia disease 07/06/2021 gastroesophageal reflux disease 07/06/2021 Interim health update 07/06/2021 Encounters Encounter Performer Location Location Address Codes Mag[place] e ([id number]) (EST PT) EXPANDED PROBLEM FOCUSED TELEHEALTH VISIT Diagnosis: Type 2 diabetes mellitus with peripheral neuropathy[ICD10: E11.42] Diagnosis: GERD (gastroesophageal reflux disease)[ICD10: K21.9] Diagnosis: Hyperlipidemia, unspecified[ICD10 : E78.5] Diagnosis: Dyspnea, unspecified[ICD10 : R06.00] Chivo Ed[facility] [place] [facility] [address] [facility] [address] [place] [address] CPT-4: 48974 07/06/2021 Plan of Care Planned Activity Notes Codes Status Date Visit Plan: Video and audio call using [employer] U07.1-079.89 COVID-19 virus RNA test result positive at limit of detection reminded of benefits of nasal lavage, vaporizer, and rest discussed immune support in case of persistent or worsening symptoms, report to the ER E11.42-250.60 Type 2 diabetes mellitus with peripheral neuropathy ranging 104-210 encouraged to monitor diet for changes based on blood sugar discussed diabetic diet, encouraged plant based diet, Metformin 1000mg BID - elevated liver enzymes noted with last labs, will check labs at next home visit, may need to make adjustments to this medication uses monitor [employer] through [employer]-participant of [employer] 05/20/2021 Hemoglobin A1C 5.4 stable 10/17/2019 [place] Fany 7/10-instructed on good daily foot care routine follow up with Dr. Gonzales, podiatry ophthalmology visit up to date 07/202101/01/2020 FRA complete denies fall R55-780.2 Syncope and collapse Z84.89-V19.8 Family history of seizures denies any seizure activity since last contact previously discussed possible causes other than seizure such as stress, cardiac, diabetes mellitus [facility] - has appt 07/10/21 advised to notify office for persistent or worsening symptoms F43.23-309.28 Adjustment disorder with mixed anxiety and depressed mood reviewed previously discussed stress management routine follow up [facility] 03/13/2021 PHQ 9 Score 4 Sertraline 200mg daily 04/01/2021 Functional Assessment independent with ADLs R63.0-783.0 Anorexia consuming 1 -2 meals per day advised to continue to try small, more frequent food intake, discussed limiting carbonated beverages as this may make her feel full taking away appetite discussed benefits of [employer] Instant Breakfast not using note weight has remained stable over the past couple months-will continue to monitor I10-401.9 Essential (primary) hypertension I11.0-402.91 Hypertensive heart disease with heart failure cont hctz and lisinopril 04/01/2021 HTN assessment complete discussed lifestyle modification [...] Cpap-not consistently wearing thinking mask doesn't fit properly, however is sleeping at 45 degree angle which is helping- nevertheless, encouraged to have adjusted continue inhalers nebulizer routine f/u Dr. Garcia, pulmonology E03.9-244.9 Hypothyroidism, unspecified cont levothyroxine E78.5-272.4 Hyperlipidemia, [...] new appt for pap in June 2020-[facility]-reports pap negative Z01.89-V72.85 Encounter for screening for tobacco use 03/13/2021 Tobacco screen complete-patient denies ever smoking Z12.31-V76.12 (Z12.31-V76.12) Encounter for screening mammogram for malignant neoplasm of breast Z12.11-V76.51 (Z12.11-V76.51) Encounter for screening for malignant neoplasm of colon Preventative testing not indicated due to age *I reviewed the most recent CDC guidelines regarding Covid-19/Coronavirus with the patient/caregiver/designee 07/06/2021 Patient Education: Patient Medication Summary Completed 07/06/2021 Appointment: Chivo Bishop WPtel: [address] [place] [address] [place] PHTV 06/10/2021 Appointment: Anna Culver WPtel: [address] [place] [address] [place] ETV 06/02/2021 Appointment: Chivo Bishop WPtel: [address] [place] [address] [place] ETV 05/20/2021 Appointment: Anna Culver WPtel: [address] [place] [address] [place] ETV 04/28/2021 Appointment: Chivo Bishop WPtel: [address] [place] [address] ETV 04/15/2021 Appointment: Anna Culver WPtel: [phone] [place] [address] E410 04/01/2021 Appointment: Anna Culver WPtel: [address] [place] [address] ETV 03/24/2021 Appointment: Anna Culver WPtel: [address] [place] [address] ETV 03/13/2021 Appointment: Anna Culver WPtel: [address] [place] [address] E410 02/11/2021 Appointment: Chivo Bishop WPtel: [address] [place] [address] E410 01/29/2021 Appointment: Anna Culver WPtel: [address] [place] [address] ETV 01/13/2021 Appointment: Anna Culver WPtel: [address] [place] [address] E410 12/17/2020 Appointment: Chivo Bishop WPtel: [address] [place] [address] ETV 11/28/2020 Appointment: Anna Culver WPtel: [address] [place] [address] ETV 11/24/2020 Appointment: Anna Culver WPtel: [address] [place] [address] E410 10/29/2020 Appointment: Anna Culver WPtel: [address] [place] [address] E410 09/24/2020 Appointment: Anna Culver WPtel: [phone] [place] [address] [place] ETV 08/26/2020 Appointment: Anna Culver WPtel: [phone] [place] [address] ETV 08/19/2020 Appointment: Anna Culver WPtel: [address] [place] [address] [place] ETV 07/22/2020 Appointment: Anna Culver WPtel: [address] [place] [address] ETV 07/08/2020 Appointment: Gianna Birmingham: [facility] 100 [id number] [place] ECHO 07/02/2020 Appointment: Anna Culver WPtel: [address] [place] [address] [place] E452 06/11/2020 Appointment: Anna Culver WPtel: [address] [place] [address] [place] E452 05/14/2020 Appointment: Anan Culver WPtel: [address] [place] [address] E452 04/17/2020 Appointment: Anna Culver WPtel: [address] [place] [address] [place] E452 03/21/2020 Appointment: Anna Culver WPtel: [address] [place] [address] [place] E452 02/14/2020 Appointment: Anna Culver WPtel: [address] [place] [address] [place] E452 01/24/2020 Appointment: Anna Culver WPtel: [address] [place] [address] [place] E452 01/01/2020 Appointment: Anna Culver WPtel: [id number] E452 11/28/2019 Appointment: Anna Culver WPtel: [address] [place] [address] E452 10/17/2019 Appointment: Anna Culver WPtel: [address] [place] [address] E452 09/19/2019 Appointment: Sudha Hernadez WPtel: [address] [place] [address] [id number] E452 07/04/2019 Appointment: Sudha Hernadez WPtel: [address] [place] [address] [id number] E452 06/21/2019 Appointment: Charlene Oropeza WPtel: [address] [place] [address] [id number] E452 05/24/2019 Appointment: Mallory Delgado E4 04/27/2019 Appointment: Charlene Oropeza WPtel: [address] [facility] [id number] E452 04/25/2019 Appointment: Rasta Palafox WPtel: [address] [facility] [id number] E452 03/28/2019 Appointment: Rasta Palafox WPtel: [address] [facility] [id number] E452 02/14/2019 Appointment: Rasta Palafox WPtel: [address] [facility] [id number] E452 01/31/2019 Appointment: Rasta Palafox WPtel: [facility] [id number] E420 12/27/2018 Referral: Pending Gynecology Referral Information Referral Processed Referral: Pending Pulmonolog y Referral Information Referral Processed Referral: Pending Psychiatry Referral Information Referral Initiated Referral: Pending Respirator y Services Referral Information Referral Initiated Referral: Pending Ophthalmology Referral Information Referral Initiated Referral: [facility] WPtel: [address] [facility] [address] Proof Coins Inspector placed a call out to the patient to notify her that it has been recommended that she be seen by 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 Patient agreed to be seen, does not have a provider of choice and no transportation issues. [employer] Inspector faxed referral and clinical notes to [facility] in [place], [place] near the patient's home. Patient to [...] seen and prefers a provider in the [place] or [place] area. [employer] Inspector placed a call out to everyone listed in the area and the only location that was able to accept the patient's insurance was [address] [phone] and spoke with Maylin. Maylin asked that the patient's referral, face sheet and visit notes be faxed to . [employer] Inspector faxed over requested documents. Patient appointment confirmation letter generated and mailed to her home address. Patient to call to schedule an appointment. Processed Referral: [facility] WPtel: [address] [place] [address] [place], [place] [id number] Patient notified that it has been advised that she be seen by Neurology. Patient agreed to be seen and prefers to be seen by a provider in the [place], [place] area. Patient denies any concerns with transportation, and prefers to schedule her own appointment. [employer] Inspector placed a call out to [facility] and spoke with Neeraj Mcfarland: who confirmed that their office is able to accept new patients and the patient's insurance. After confirming the providers fax number, racebook writer faxed over the patient's referral, and [...] patient . Video and audio call using [employer] U07.1-898.89 COVID-19 virus RNA test result positive at limit of detection reminded of benefits of nasal lavage, vaporizer, and rest discussed immune support in case of persistent or worsening symptoms, report to the ER E11.42-250.60 Type 2 diabetes mellitus with peripheral neuropathy ranging 104-210 encouraged to monitor diet for changes based on blood sugar discussed diabetic diet, encouraged plant based diet, Metformin 1000mg BID - elevated liver enzymes noted with last labs, will check labs at next home visit, may need to make adjustments to this medication uses monitor [employer] through [employer]-participant of [employer] 05/20/2021 Hemoglobin A1C 5.4; stable 10/17/2019 [place] Fany 7/10-instructed on good daily foot care routine follow up with Dr. Gonzales, podiatry ophthalmology visit up to date 07/202101/01/2020 FRA complete denies fall R55-780.2 Syncope and collapse; Z84.89-V19.8 Family history of seizures denies any seizure activity since last contact previously discussed possible causes other than seizure such as stress, cardiac, diabetes mellitus [facility] - has appt 07/10/21 advised to notify office for persistent or worsening symptoms F43.23-309.28 Adjustment disorder with mixed anxiety and depressed mood reviewed previously discussed stress management routine follow up [facility] 03/13/2021 PHQ 9 Score 4 Sertraline 200mg daily 04/01/2021 Functional Assessment independent with ADLs R63.0-783.0 Anorexia consuming 1 -2 meals per day advised to continue to try small, more frequent food intake, discussed limiting carbonated beverages as this may make her feel full taking away appetite discussed benefits of [employer] Instant Breakfast not using note weight has remained stable over the past couple months-will continue to monitor I10-401.9 Essential (primary) hypertension I11.0-402.91 Hypertensive heart disease with heart failure cont hctz and lisinopril 04/01/2021 HTN assessment complete discussed lifestyle modification [...] Cpap-not consistently wearing thinking mask doesn't fit properly, however is sleeping at 45 degree angle which is helping- nevertheless, encouraged to have adjusted continue inhalers nebulizer routine f/u Dr. Garcia, pulmonology E03.9-244.9 Hypothyroidism, unspecified cont levothyroxine E78.5-272.4 Hyperlipidemia, [...] new appt for pap in June 2020-[facility]-reports pap negative Z01.89-V72.85 Encounter for screening for tobacco use 03/13/2021 Tobacco screen complete-patient denies ever smoking Z12.31-V76.12 (Z12.31-V76.12) Encounter for screening mammogram for malignant neoplasm of breast Z12.11-V76.51 (Z12.11-V76.51) Encounter for screening for malignant neoplasm of colon Preventative testing not indicated due to age *I reviewed the most recent CDC guidelines regarding Covid-19/Coronavirus with the patient/caregiver/designee 07/06/2021 Medical Equipment No Medical Equipment data Advance Directives No Advance Directive data
--- OUTSIDE RECORDS SUMMARY | 2021-08-13 20:00 | XMS_ITS | CCD ---
Author Name Chivo Bishop NP Address [address] [place] [address] Phone Organization [facility] Phone Care Team Providers Care Carbonation Tester Name Role Phone Palomo KING, Anna Primary Care Provider Unav ailable Unavailable Chronic Care Management Unavaila ble Summary Purpose DataExchange Insurance Providers Payer name Policy type / Coverage type Covered libertarian ID Effective Begin Date Effective End Date SUKI MAYO [id number] Unknown Unknown Family history Mother Diagnosis Age [...] Unknown Disability 05/31/[address]: 020670777 Has never s moked or chewed tobacco 05/31/[address]: 129571807 Never drinks alco hol 05/31/2018 Has the patient ever used illegal drugs? Unknown Has never used illegal drugs 05/31/2018 DNR Order/ Advanced Directive Unknown Full Code 05/31/2018 Allergies, Adverse Reactions, Alerts Substance Reaction Codes Entered Date Inactivated Date Status OxyContin itch, RxNorm: 475229 01/13/2021 No Inactive Da te Active *No known food allergies Unknown 09/06/2018 No I nactive Date Active Methylprednisolone hives RxNorm: 6902 09/06/2018 No Inac tive Date Active Problems Condition Codes Effective Dates Condition St atus Diarrhea ICD-10: R19.7 ICD-9: 787.91 08/13/2021 Active GERD (gastroesophageal reflu x disease) ICD-10: K21.9 ICD-9: 530.81 09/07/2019 Active Hyperlipidemia, unspecified ICD-10: E78. 5 ICD-9: 272.4 05/30/2018 Active Type 2 diabetes mellitus wit h peripheral neuropathy ICD-10: E11.42 ICD-9: 250.60 11/28/2019 Active Dyspnea, unspecified ICD-10: R06.00 ICD-9: 786.09 02/08/2019 Active Adjustment disorder with mix ed anxiety [...] ICD- 10: N18.9 ICD-9: 585.9 06/21/2019 Inactive Encounter for immunization ICD-10: Z23 ICD-9: V03.9 04/25/2019 Inactive Encounter for preprocedural cardiovascular examination ICD-10: Z01.810 ICD-9: V72.81 03/28/2019 Inactive Headache ICD-10: R51 ICD-9: 784.0 10/03/2018 Inactive Other jail (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 ICD-10: Z79.899 ICD-9: V58.69 04/25/2019 Inactive Type 2 diabetes mellitus wit hout complications ICD-10: E11.9 ICD-9: 250.00 10/03/2018 Inactive Wheezing ICD-10: R06.2 ICD-9: 786.07 08/08/2018 Inactive Abnormal urine finding ICD-10: R82.90 ICD-9: 791.9 09/24/2020 Resolved Abrasion of toe ICD-10: S90.416A ICD-9: 917.0 02/14/2020 Resolved Silo eye ICD-10: H10.029 ICD-9: 372.03 12/29/2019 Resolved [...] R60.9 ICD-9: 782.3 07/11/2018 Active long term care pharmacist (current) use of non-steroidal anti-inflammatories (NSAID) ICD-10: Z79.1 ICD-9: V58.64 06/13/2018 Active Medications Medication Codes Instructions Start Date Stop Date Status Fill Instructions levothyroxine 50 mcg tablet RxNorm: 067110 Take 1 Tablet(s) Oral every day 08/13/20 21 2020 Inactive Probiotic 10 billion cell capsule RxNorm: 3857253 Take 1 Capsule(s) Oral every day 08/13/20 21 2021 Inactive Acid Hatchery Supervisor (famotidine) 20 mg tablet RxNorm: 583660 Take 1 Tablet(s) Oral every morning 08/13/20 21 2020 Inactive Heartburn Relief (famotidine) 10 mg tablet RxNorm: 560317 Take 1 Tablet(s) Oral QAM 08/07/20 21 2020 Inactive levothyroxine 50 mcg tablet RxNorm: 695237 Take 1 Tablet(s) Oral QD 08/07/20 21 2020 Inactive metformin 1,000 mg tablet RxNorm: 429468 1 Tablet(s) Oral two times a day 07/16/20 21 2021 Inactive Singulair 10 mg tablet RxNorm: 067412 TAKE (1) TABLET BY MOUTH DAILY 07/16/20 21 2020 Inactive lisinopril 2.5 mg tablet RxNorm: 966518 Take 1 Tablet(s) Oral every day 07/11/20 21 2020 Inactive hydrochlorothiazide 25 mg tablet RxNorm: 790613 Take 1 Tablet(s) Oral every day 06/12/20 21 2020 Inactive ondansetron 4 mg disintegrating tablet RxNorm: 435279 1 Tablet(s) Oral two times a day 06/10/20 21 2020 Inactive Sudafed 12 Hour 120 mg tablet,extended release RxNorm: 1057878 TAKE 1 TABLET BY MOUTH EVERY 12 HOURS NEEDED 06/01/20 21 2021 Inactive Heartburn Relief (famotidine) 10 mg tablet RxNorm: 246118 Take 1 Tablet(s) Oral every morning 05/07/20 21 2020 Inactive omeprazole 20 mg capsule,delayed release RxNorm: 290217 1 Capsule(s) Oral every evening 04/03/20 21 2020 Inactive sertraline 100 mg tablet RxNorm: 215417 2 Tablet(s) Oral every day 03/13/20 21 2020 Inactive levothyroxine 50 mcg tablet RxNorm: 376719 TAKE (1) TABLET BY MOUTH DAILY 02/04/20 21 2020 Inactive metformin 500 mg tablet RxNorm: 545724 1 Tablet(s) Oral two times a day take with 500mg to equal 1000mg 01/14/20 21 2020 Inactive gabapentin 300 mg capsule RxNorm: 409101 TAKE 1 CAPSULE BY MOUTH THREE TIMES A DAY 01/14/20 21 2020 Inactive lisinopril 2.5 mg tablet RxNorm: 840153 TAKE 1 TABLET BY MOUTH DAILY 01/06/20 21 2020 Inactive gabapentin 300 mg capsule RxNorm: 729294 TAKE 1 CAPSULE BY MOUTH THREE TIMES A DAY 01/06/20 21 2020 Inactive Singulair 10 mg tablet RxNorm: 828260 TAKE (1) TABLET BY MOUTH DAILY 01/06/20 21 2020 Inactive metformin 1,000 mg tablet RxNorm: 355045 1 Tablet(s) Oral two times a day 01/06/20 21 2020 Inactive atorvastatin 40 mg tablet RxNorm: 270711 1 Tablet(s) Oral every day 12/06/19 21 2020 Inactive omeprazole 20 mg capsule,delayed release RxNorm: 888413 1 Capsule(s) Oral every evening 11/24/19 21 2020 Inactive famotidine 10 mg tablet RxNorm: 747427 1 Tablet(s) Oral every morning 11/24/19 21 2020 Inactive Alcohol Prep Pads RxNorm: 821486 USE EACH MORNING 10/14/19 21 2020 Inactive omeprazole 20 mg capsule,delayed release RxNorm: 953170 1 Capsule(s) Oral two times a day 10/13/19 21 2021 Inactive omeprazole 20 mg capsule,delayed release RxNorm: 069303 TAKE 1 CAPSULE BY MOUTH EVERY DAY 10/08/19 2021 Inactive Macrobid 100 mg capsule RxNorm: 645148 1 Capsule(s) Oral every 12 hours with food 10/01/202020 Inactive omeprazole 20 mg capsule,delayed release RxNorm: 172006 1 Capsule(s) Oral two times a day 09/24/202021 Inactive metformin 1,000 mg tablet RxNorm: 081682 1 Tablet(s) Oral two times a day 08/19/202020 Inactive start on September 11, 2020 metformin 500 mg tablet RxNorm: 953217 1 Tablet(s) Oral two times a day take with 500mg to equal 1000mg 08/19/202019 Inactive gabapentin 300 mg capsule RxNorm: 491098 TAKE 1 CAPSULE BY MOUTH THREE TIMES DAILY 07/11/20 20 2020 Inactive cetirizine 10 mg tablet RxNorm: 8880058 TAKE (1) TABLET BY MOUTH DAILY 07/11/202020 Inactive metformin 500 mg tablet RxNorm: 048779 1 Tablet(s) Oral two times a day 07/08/20 20 2019 Inactive loperamide 2 mg tablet RxNorm: 828740 1 Tablet(s) Oral as needed take one tablet after each loose stool, maximum of 8 tablets in 24 hours 06/24/202021 Inactive Sudafed 12 Hour 120 mg tablet,extended release RxNorm: 2111804 TAKE 1 TABLET BY MOUTH EVERY 12 HOURS NEEDED 06/11/20 20 2019 Inactive hydrochlorothiazide 25 mg tablet RxNorm: 908536 TAKE (1) TABLET BY MOUTH EVERY DAY 06/11/202019 Inactive omeprazole 20 mg capsule,delayed release RxNorm: 549259 TAKE 1 CAPSULE BY MOUTH EVERY DAY 05/14/202020 Inactive metformin 500 mg tablet RxNorm: 988146 1 Tablet(s) Oral every day 05/12/20 20 2019 Inactive True Metrix Glucose Test Strip RxNorm: 1 Test Strips Miscellaneous two times a day as needed 04/17/20 No Stop Date Active metformin 500 mg tablet RxNorm: 888903 1 Tablet(s) Oral every day 04/17/20 20 2019 Inactive diclofenac sodium 75 mg tablet,delayed release RxNorm: 883583 1 Tablet(s) PO BID 04/14/20 20 2021 Inactive This refill negates all other refills of this medication Sudafed 12 Hour 120 mg tablet,extended release RxNorm: 6407885 TAKE 1 TABLET BY MOUTH EVERY 12 HOURS NEEDED 03/14/20 20 2019 Inactive True Metrix Glucose Test Strip RxNorm: 1 Test Strips Miscellaneous every morning 03/13/20 20 2019 Inactive 100/container True Metrix Glucose Test Strip RxNorm: 1 Test Strips Miscellaneous QAM 02/22/20 20 2019 Inactive 100/container loperamide 2 mg tablet RxNorm: 077794 1 Tablet(s) Oral as needed take one tablet after each loose stool, maximum of 8 tablets in 24 hours 02/22/20 20 2019 Inactive cetirizine 10 mg tablet RxNorm: 0191103 1 Tablet(s) PO daily 01/17/20 20 2019 Inactive loperamide 2 mg tablet RxNorm: 815020 1 Tablet(s) Oral as needed take one tablet after each loose stool, maximum of 8 tablets in 24 hours 01/17/20 20 2019 Inactive quetiapine 100 mg tablet RxNorm: 533078 1 Tablet(s) Oral every night at bedtime 01/17/20 20 2019 Inactive levothyroxine 50 mcg tablet RxNorm: 893021 1 Tablet(s) PO daily 01/17/20 20 2020 Inactive gabapentin 300 mg capsule RxNorm: 584021 1 Capsule(s) PO TID 01/17/20 20 2019 Inactive levothyroxine 50 mcg tablet RxNorm: 152402 1 Tablet(s) PO daily 01/15/20 20 2019 Inactive lisinopril 2.5 mg tablet RxNorm: 396269 1 Tablet(s) PO daily 01/15/20 20 2020 Inactive gabapentin 300 mg capsule RxNorm: 936695 1 Capsule(s) PO TID 01/15/20 20 2019 Inactive cetirizine 10 mg tablet RxNorm: 3728119 1 Tablet(s) PO daily 01/15/20 20 2019 Inactive Singulair 10 mg tablet RxNorm: 592851 1 Tablet(s) PO daily 01/15/20 20 2020 Inactive gentamicin 0.3 % eye drops RxNorm: 315260 1 Drop(s) ophthalmic (eye) four times a day 12/29/19 20 2019 Inactive gentamicin 0.3 % eye drops RxNorm: 724705 1 Drop(s) ophthalmic (eye) four times a day 12/29/19 20 2019 Inactive gentamicin 0.3 % eye drops RxNorm: 650336 1 Drop(s) ophthalmic (eye) four times a day 12/29/19 20 2019 Inactive hydrochlorothiazide 25 mg tablet RxNorm: 854748 1 Tablet(s) Oral every day 12/21/19 20 2019 Inactive Sudafed 12 Hour 120 mg tablet,extended release RxNorm: 9648196 TAKE (1) TABLET BY MOUTH EVERY 12 HOURS NEEDED 12/21/19 20 2019 Inactive loperamide 2 mg tablet RxNorm: 015393 1 Tablet(s) Oral as needed take one tablet after each loose stool, maximum of 8 tablets in 24 hours 12/11/19 20 2019 Inactive loperamide 2 mg tablet RxNorm: 119117 1 Tablet(s) Oral as needed take one tablet after each loose stool, maximum of 8 tablets in 24 hours 12/11/19 20 2019 Inactive atorvastatin 40 mg tablet RxNorm: 939530 1 Tablet(s) Oral every day 11/29/19 20 2020 Inactive quetiapine 100 mg tablet RxNorm: 679030 1 Tablet(s) Oral every night at bedtime 11/28/19 20 2019 Inactive sertraline 100 mg tablet RxNorm: 489182 1 Tablet(s) Oral 11/28/19 20 2019 Inactive omeprazole 20 mg capsule,delayed release RxNorm: 060566 1 Capsule(s) Oral every day 11/20/19 20 2019 Inactive amoxicillin 250 mg capsule RxNorm: 137043 1 Capsule(s) Oral three times a day 11/07/19 20 2019 Inactive multivitamin with iron-mineral tablet RxNorm: 1 Tablet(s) Oral every day 10/29/19 20 2021 Inactive cetirizine 10 mg tablet RxNorm: 2668424 1 Tablet(s) PO daily 10/20/19 20 2019 Inactive This refill negates all other refills of this medication. Please do not auto refill Singulair 10 mg tablet RxNorm: 885934 1 Tablet(s) PO daily 10/20/19 20 2019 Inactive This refill negates all other refills of this medication gabapentin 300 mg capsule RxNorm: 511552 1 Capsule(s) PO TID 10/20/192019 Inactive lisinopril 2.5 mg tablet RxNorm: 670454 1 Tablet(s) PO daily 10/20/19 20 2019 Inactive levothyroxine 50 mcg tablet RxNorm: 176656 1 Tablet(s) PO daily 10/20/192019 Inactive This refill negates all other refills of this medication fenugreek seed extract 500 mg capsule RxNorm: 1 Capsule(s) Oral three times a day 10/17/19 20 2021 Inactive hydrochlorothiazide 25 mg tablet RxNorm: 631082 1 Tablet(s) Oral every day 10/17/19 20 2019 Inactive Alcohol Prep Pads RxNorm: 338657 1 Patch TOP QAM 10/16/19 20 2020 Inactive loperamide 2 mg tablet RxNorm: 157797 1 Tablet(s) Oral as needed take one [...] 2019 Inactive hydrochlorothiazide 25 mg tablet RxNorm: 347503 1 Tablet(s) Oral every day 09/19/20 19 2019 Inactive Sudafed 12 Hour 120 mg tablet,extended release RxNorm: 9747576 1 Tablet(s) Oral every 12 hours as needed 09/11/20 19 2018 Inactive omeprazole 20 mg capsule,delayed release RxNorm: 959006 1 Capsule(s) Oral every day 09/07/20 19 2019 Inactive Sudafed 12 Hour 120 mg tablet,extended release RxNorm: 0569765 1 Tablet(s) Oral every 12 hours as needed 09/04/20 19 2018 Inactive pantoprazole 40 mg tablet,delayed release RxNorm: 373348 1 Tablet(s) Oral every day 08/24/202018 Inactive discontinue any other H2Blkr. and PPI albuterol sulfate 2.5 mg/3 mL (0.083 %) solution for nebulization RxNorm: 256136 1 Vial Inhalation every four hours as needed as needed for dyspnea 08/17/202019 Inactive 60/box. This refill negates all other refills of this medication. Please do not fill early. Please do not auto refill. Symbicort 160 mcg-4.5 mcg/actuation HFA aerosol inhaler RxNorm: 7196872 2 Puff(s) INH BID 08/17/20 19 No Stop Date Active Alcohol Prep Pads RxNorm: 635582 1 Patch TOP QAM 08/17/20 19 2019 Inactive Ventolin HFA 90 mcg/actuation aerosol inhaler RxNorm: 018216 2 Puff(s) INH QID 08/09/20 19 2019 Inactive Please do not fill early. Please do not auto refill. This refill negates all other refills of this medication True Metrix Glucose Test Strip RxNorm: 1 Test Strips Miscellaneous QAM 08/09/20 19 2019 Inactive 100/container atorvastatin 40 mg tablet RxNorm: 432435 1 Tablet(s) Oral every day 07/04/20 19 2019 Inactive levmetamfetamine 50 mg nasal inhaler RxNorm: 1 Unit(s) NASAL Q3-4H Do not use more than every 3 hours or 8 times/24hours 06/26/20 19 2021 Inactive Please do not auto refill. This refill negates all other refills of this medication buspirone 7.5 mg tablet RxNorm: 614144 1 Tablet(s) PO BID 06/26/20 19 2020 Inactive This refill negates all other refills of this medication hydrochlorothiazide 12.5 mg tablet RxNorm: 389365 1 Tablet(s) PO QAM 06/26/20 19 2019 Inactive Ventolin HFA 90 mcg/actuation aerosol inhaler RxNorm: 173537 2 Puff(s) INH QID 06/26/20 19 2018 Inactive Please do not fill early. Please do not auto refill. This refill negates all other refills of this medication Singulair 10 mg tablet RxNorm: 197844 1 Tablet(s) PO daily 06/26/20 19 2019 Inactive This refill negates all other refills of this medication cetirizine 10 mg tablet RxNorm: 7698224 1 Tablet(s) PO daily 06/26/20 19 2019 Inactive This refill negates all other refills of this medication. Please do not auto refill levothyroxine 50 mcg tablet RxNorm: 785800 1 Tablet(s) PO daily 06/26/20 19 2019 Inactive This refill negates all other refills of this medication diclofenac sodium 75 mg tablet,delayed release RxNorm: 893489 1 Tablet(s) PO BID 06/26/20 19 2019 Inactive This refill negates all other refills of this medication ranitidine 150 mg tablet RxNorm: 674377 1 Tablet(s) PO BID 06/26/20 19 2018 Inactive This refill negates all other refills of this medication Calcium 600-D3 Plus (mag-zinc) 600 mg calcium-800 unit-50 mg tablet RxNorm: 1 Tablet(s) PO daily take an additonal tablet for itching. 06/26/20 19 2018 Inactive This refill negates all other refills of this medication albuterol sulfate 2.5 mg/3 mL (0.083 %) solution for nebulization RxNorm: 135082 1 Vial INH QID 06/26/20 19 2018 Inactive 60/box. This refill negates all other refills of this medication. Please do not fill early. Please do not auto refill. lisinopril 2.5 mg tablet RxNorm: 608339 1 Tablet(s) PO daily 06/21/20 19 2019 Inactive gabapentin 300 mg capsule RxNorm: 952783 1 Capsule(s) PO TID 06/21/20 19 2019 Inactive atorvastatin 20 mg tablet RxNorm: 537087 1 Tablet(s) PO QHS 06/07/20 19 2018 Inactive This refill negates all other refills of this medication TRUEplus Lancets 30 gauge RxNorm: 1 Lancets Miscellaneous QAM 05/29/20 19 2018 Inactive 100/box gabapentin 300 mg capsule RxNorm: 811600 1 Capsule(s) PO TID 05/03/20 19 2018 Inactive Flintstones Complete (iron) 18 mg iron chewable tablet RxNorm: 1 Tablet(s) PO daily 04/04/20 19 2021 Inactive This refill negates all other refills of this medication gabapentin 300 mg capsule RxNorm: 901766 1 Capsule(s) PO TID as needed 02/01/20 19 2018 Inactive True Metrix Glucose Test Strip RxNorm: 1 Test Strips Miscellaneous QA 02/01/20 19 2018 Inactive 100/container Alcohol Prep Pads RxNorm: 844640 1 Patch TOP QAM 02/01/20 19 2018 Inactive TRUEplus Lancets 30 gauge RxNorm: 1 Lancets Miscellaneous QAM 02/01/20 19 2018 Inactive 100/box lisinopril 2.5 mg tablet RxNorm: 930542 1 Tablet(s) PO daily 12/28/19 19 2018 Inactive ranitidine 150 mg tablet RxNorm: 907755 1 Tablet(s) PO BID 10/21/19 19 2018 Inactive This refill negates all other refills of this medication albuterol sulfate 2.5 mg/3 mL (0.083 %) solution for nebulization RxNorm: 244410 1 Vial INH QID 10/21/19 19 2018 [...] this medication gabapentin 300 mg capsule RxNorm: 552985 1 Capsule(s) PO TID as needed 10/21/19 19 2018 Inactive atorvastatin 20 mg tablet RxNorm: 483205 1 Tablet(s) PO QHS 10/21/19 19 2018 Inactive This refill negates all other refills of this medication trazodone 50 mg tablet RxNorm: 426454 1 Tablet(s) PO QHS 10/21/19 19 2018 Inactive This refill negates all other refills of this medication Ventolin HFA 90 mcg/actuation aerosol inhaler RxNorm: 054486 2 Puff(s) INH QID 10/21/19 19 2018 Inactive Please do not fill early. Please do not auto refill. This refill negates all other refills of this medication Calcium 600-D3 Plus 600 mg calcium-800 unit-50 mg tablet RxNorm: 1 Tablet(s) PO daily take an additonal tablet for itching. 10/21/192018 Inactive This refill negates all other refills of this medication Singulair 10 mg tablet RxNorm: 703927 1 Tablet(s) PO daily 10/21/19 19 2018 Inactive This refill negates all other refills of this medication buspirone 7.5 mg tablet RxNorm: 790219 1 Tablet(s) PO BID 10/21/192018 Inactive This refill negates all other refills of this medication diclofenac sodium 75 mg tablet,delayed release RxNorm: 045441 1 Tablet(s) PO BID 10/21/19 19 2018 Inactive This refill negates all other refills of this medication hydrochlorothiazide 12.5 mg tablet RxNorm: 265319 1 Tablet(s) PO QAM 10/21/19 19 2018 Inactive metoprolol succinate ER 50 mg tablet,extended release 24 hr RxNorm: 383292 1 Tablet(s) PO daily 10/21/19 19 2018 Inactive This refill negates all other refills of this medication levothyroxine 50 mcg tablet RxNorm: 716880 1 Tablet(s) PO daily 10/21/19 19 2018 Inactive This refill negates all other refills of this medication cetirizine 10 mg tablet RxNorm: 7689411 1 Tablet(s) PO daily 10/21/192018 Inactive This refill negates all other refills of this medication. Please do not auto refill Flintstones Complete (iron) 18 mg iron chewable tablet RxNorm: 1 Tablet(s) PO daily 10/21/192018 Inactive This refill negates all other refills of this medication buspirone 7.5 mg tablet RxNorm: 622374 1 Tablet(s) PO BID 10/12/192018 Inactive cetirizine 10 mg tablet RxNorm: 1342586 1 Tablet(s) PO daily 09/28/202018 Inactive Guaiasorb DM 10 mg-100 mg/5 mL oral liquid RxNorm: 149053 10 Milliliter(s) PO As needed every 4 hr 09/24/20 18 2018 Inactive Vicks Vaporub 4.7 %-1.2 %-2.6 % topical ointment RxNorm: 3114130 1 Application TOP TID 09/24/20 18 2018 Inactive levmetamfetamine 50 mg nasal inhaler RxNorm: 1 Unit(s) NASAL Q3-4H 09/24/20 18 2017 Inactive sertraline 50 mg tablet RxNorm: 527698 1 Tablet(s) PO daily 09/09/20 18 2018 Inactive Please note dose trazodone 50 mg tablet RxNorm: 184908 1 Tablet(s) PO QHS 09/06/20 18 2018 Inactive sertraline 50 mg tablet RxNorm: 037784 1 Tablet(s) PO daily 09/06/20 18 2017 Inactive amoxicillin 500 mg tablet RxNorm: 233249 1 Tablet(s) PO Q12H 08/31/20 18 2017 Inactive albuterol sulfate 2.5 mg/3 mL (0.083 %) solution for nebulization RxNorm: 242850 1 Vial INH QID 08/10/20 18 2018 Inactive 60/box. Please do not fill early. Please do not auto refill. Prozac 10 mg capsule RxNorm: 964526 1 Capsule(s) PO daily 08/09/20 18 2017 Inactive buspirone 7.5 mg tablet RxNorm: 966147 1 Tablet(s) PO BID 08/09/20 18 2018 Inactive gabapentin 300 mg capsule RxNorm: 319414 1 Capsule(s) PO TID as needed 08/01/20 18 2018 Inactive hydrochlorothiazide 12.5 mg tablet RxNorm: 560494 1 Tablet(s) PO QAM 08/01/20 18 2018 Inactive ranitidine 150 mg tablet RxNorm: 659050 1 Tablet(s) PO BID 08/01/20 18 2018 Inactive Macrobid 100 mg capsule RxNorm: 408537 1 Capsule(s) PO Q12H 06/21/20 18 2017 Inactive Singulair 10 mg tablet RxNorm: 291166 1 Tablet(s) PO daily 06/14/20 18 2018 Inactive Ventolin HFA 90 mcg/actuation aerosol inhaler RxNorm: 9668282 2 Puff(s) INH QID 06/14/20 18 2018 Inactive Singulair 10 mg tablet RxNorm: 979172 1 Tablet(s) PO daily 06/14/20 18 2017 Inactive buspirone 7.5 mg tablet RxNorm: 709604 1 Tablet(s) PO BID 06/14/20 18 2017 Inactive Prozac 10 mg capsule RxNorm: 043505 1 Capsule(s) PO daily 06/14/20 18 2017 Inactive Neilmed Pediatric Sinus Rinse Refill packet RxNorm: 1 Unit Dose NASAL PRN 05/31/20 18 2021 Inactive diclofenac sodium 75 mg tablet,delayed release RxNorm: 003498 1 Tablet(s) PO BID 05/31/20 18 2017 Inactive lisinopril 2.5 mg tablet RxNorm: 885681 1 Tablet(s) PO daily 05/31/20 18 2017 Inactive metoprolol succinate ER 50 mg tablet,extended release 24 hr RxNorm: 398062 1 Tablet(s) PO daily 05/31/20 18 2017 Inactive levothyroxine 50 mcg tablet RxNorm: 348272 1 Tablet(s) PO daily 05/31/20 18 2017 Inactive TRUEplus Lancets 30 gauge RxNorm: 1 Lancets Miscellaneous QAM 05/31/20 18 2017 Inactive 100/box Ventolin HFA 90 mcg/actuation aerosol inhaler RxNorm: 799350 2 Puff(s) INH QID 05/31/20 18 2017 Inactive Aleve 220 mg capsule RxNorm: 3065816 1 Capsule(s) PO BID 05/31/20 18 2018 Inactive ranitidine 150 mg tablet RxNorm: 011294 1 Tablet(s) PO BID 05/31/20 18 2017 Inactive gabapentin 300 mg capsule RxNorm: 160576 1 Capsule(s) PO TID as needed 05/31/20 18 2017 Inactive atorvastatin 20 mg tablet RxNorm: 532445 1 Tablet(s) PO QHS 05/31/20 18 2017 Inactive True Metrix Glucose Test Strip RxNorm: 1 Test Strips Miscellaneous QAM 05/31/20 18 2017 Inactive 50/container Calcium 600-D3 Plus 600 mg calcium-800 unit-50 mg tablet RxNorm: 1 Tablet(s) PO daily take an additonal tablet for itching. 05/31/20 18 2017 Inactive hydrochlorothiazide 12.5 mg tablet RxNorm: 280593 1 Tablet(s) PO QAM 05/31/20 18 2017 Inactive Flintstones Complete (iron) 18 mg iron chewable tablet RxNorm: 1 Tablet(s) PO daily 05/31/20 18 2017 Inactive d-mannose oral powder RxNorm: PO 18 2021 Inactive True Metrix Glucose Meter RxNorm: miscellaneous 08/17/20 19 2018 Inactive sertraline 50 mg tablet RxNorm: 823058 1 Tablet(s) PO daily 11/28/19 20 2019 Inactive loperamide 2 mg tablet RxNorm: 863940 oral 09/29/20 19 2018 Inactive Symbicort 160 mcg-4.5 mcg/actuation HFA aerosol inhaler RxNorm: 3574760 2 Puff(s) INH BID 08/17/20 19 2018 Inactive Medication Administered No Medication Administered data Procedures Procedure Codes Date Frailty Screening CPT-4: SFD 05/20/2021 Hypertension CPT-4: HTN 04/01/2021 Tobacco Assessment/Screening CPT-4: TCA 08/2021 Patient Health Questionnaire CPT-4: DPHQ 08/2021 Mini Mental State Exam CPT-4: DMMA 1 Annual Wellness Visit (Subsequent Visit) CPT-4: G0439 01/13/2021 Advanced Care Planning CPT-4: VACP Fall Risk Assessment SNOMED CT: 14778590 4 CPT-4: DFRA 01/13/2021 Lenora Fany Assessment CPT-4: DSWA 12/01 Urinalysis, dip stick CPT-4: 71012 09/24/2020 Patient Health Questionnaire CPT-4: DPHQ Electrocardiogram CPT-4: 34128 05/14/2020 Tobacco Assessment/Screening CPT-4: TCA Fall Risk Assessment SNOMED CT: 61891746 4 CPT-4: DFRA 01/01/2020 Functional Assessment CPT-4: DFA 01/01/2020 Lenora Fany Assessment CPT-4: DSWA 11/04 Patient Health Questionnaire CPT-4: DPHQ Lenora Fany Assessment CPT-4: DSWA 10/03 Hypertension CPT-4: HTN 10/17/2019 Fall Risk Assessment SNOMED CT: 95798125 4 CPT-4: DFRA 09/19/2019 Functional Assessment CPT-4: DFA 09/19/2019 Urinalysis, dip stick CPT-4: 37868 06/21/2019 Tobacco Assessment/Screening CPT-4: TCA Patient Health Questionnaire CPT-4: DPHQ AHA/REBECCA Classification Assessment CPT-4: DAHA 04/25/2019 Controlled Substance Report CPT-4: CTRSU 04/03 Urinalysis, dip stick CPT-4: 80627 03/28/2019 Urinalysis, dip stick CPT-4: 32453 03/28/2019 [id number]-Aycrutnntcqhuag CPT-4: 40229 Unknown K9O-Kvdajlamsycpnwb CPT-4: 88949 Unknown Z3M-Xgyshfggbyioubl CPT-4: 10123 Unknown K7W-Kawzotiwjnpipqb CPT-4: 29576 Unknown G1A-Atwwfyrrqewvwbb CPT-4: 29509 Unknown W3G-Vfxepakcdwwdtey CPT-4: 76363 Unknown M4E-Atmuwdjmtynuelj CPT-4: 68696 Unknown Gynecology Referral SNOMED CT: 580356866 CPT-4: R14 Unknown Reason For Visit Reason For Visit Effective Dates Notes diarrhea 08/13/2021 Interim health update 08/13/2021 Encounters Encounter Performer Location Location Address Codes Magdi e ([id number]) (EST PT) EXPANDED PROBLEM FOCUSED TELEHEALTH VISIT Diagnosis: Type 2 diabetes mellitus with peripheral neuropathy[ICD10: E11.42] Diagnosis: GERD (gastroesophageal reflux disease)[ICD10: K21.9] Diagnosis: Hyperlipidemia, unspecified[ICD10 : E78.5] Diagnosis: Diarrhea[ICD10: R19.7] Chivo Bishop [place] Office [id number] [place] [address] CPT-4: 86015 08/13/2021 Plan of Care Planned Activity Notes Codes Status Date Visit Plan: Video and audio call using eIQ[employer] R19.7-567.91 Diarrhea intermittent symptoms over the past few months, no known trigger discussed food elimination diet to rule-in potential lactose, gluten or artificial sweetener allergies (patient consumes stevia-sweetened beverages daily) denies hx of ibs trial probiotic, rx sent continue fluid replacement, bland diet E11.42-250.60 Type 2 diabetes mellitus with peripheral neuropathy ranging 104-212 encouraged to monitor diet for changes based on blood sugar discussed diabetic diet, encouraged plant based diet, Metformin 1000mg BID - elevated liver enzymes noted with last labs, will check labs at next home visit, may need to make adjustments to this medication uses monitor Biotel through [employer]-participant of [employer] on [employer] 05/20/2021 Hemoglobin A1C 5.4 stable 10/17/2019 Lenora Fany 04/11-instructed on good daily foot care [...] previously discussed stress management routine follow up [facility] [place] 03/13/2021 PHQ 9 Score 4 Sertraline 200mg daily 04/01/2021 Functional Assessment independent with ADLs R63.0-783.0 Anorexia consuming 1 -2 meals per day advised to continue to try small, more frequent food intake, discussed limiting carbonated beverages discussed benefits of [place] Instant Breakfast not using note weight has [...] denies any form of abuse or neglect Z12.4-V76.2 Encounter for screening for malignant neoplasm of cervix most recent pap in June 2020-[facility]-reports pap negative Z01.89-V72.85 Encounter for screening for tobacco use 03/13/2021 Tobacco screen complete-patient denies ever smoking Z12.31-V76.12 (Z12.31-V76.12) Encounter for screening mammogram for malignant neoplasm of breast Z12.11-V76.51 (Z12.11-V76.51) Encounter for screening for malignant neoplasm of colon Preventative testing not indicated due to age *I reviewed the most recent CDC guidelines regarding Covid-19/Coronavirus with the patient/caregiver/designee 08/13/2021 Patient Education: Patient Medication Summary Completed 08/13/2021 Patient Education: Script[employer] WellRx Premier Savings Card Completed 08/03 Patient Education: levothyroxine- OptimizeRX Coupon [id number] [email or web address] Completed 08/13/2021 Appointment: Chivo Bishop WPtel: [address] [place] [address] [place] ETV 07/06/2021 Appointment: Chivo Bishop WPtel: [address] [place] [address] PHTV 06/10/2021 Appointment: Anna Culver WPtel: [address] [place] [address] [place] ETV 06/02/2021 Appointment: Chivo Bishop WPtel: [address] [place] [address] [place] ETV 05/20/2021 Appointment: Anna Culver WPtel: [address] [place] [address] [place] ETV 04/28/2021 Appointment: Chivo Bishop WPtel: [address] [place] [address] [place] ETV 04/15/2021 Appointment: Anna Culver WPtel: [address] [place] [address] [place] E410 04/01/2021 Appointment: Anna Culver WPtel: [address] [place] [address] ETV 03/24/2021 Appointment: Anna Culver WPtel: [address] [place] [address] ETV 03/13/2021 Appointment: Anna Culver WPtel: [address] [place] [address] E410 02/11/2021 Appointment: Chivo Bishop WPtel: [address] [place] [address] E410 01/29/2021 Appointment: Anna Culver WPtel: [address] [place] [address] ETV 01/13/2021 Appointment: Anna Culver WPtel: [address] [place] [address] E410 12/17/2020 Appointment: Chivo Bishop WPtel: [address] [place] [address] ETV 11/28/2020 Appointment: Anna Culver WPtel: [address] [place] [address] ETV 11/24/2020 Appointment: Anna Culver WPtel: [address] [place] [address] E410 10/29/2020 Appointment: Anna Culver WPtel: [address] [place] [address] E410 09/24/2020 Appointment: Anna Culver WPtel: [address] [place] [address] ETV 08/26/2020 Appointment: Anna Culver WPtel: [address] [place] [address] ETV 08/19/2020 Appointment: Anna Culver WPtel: [address] [place] [address] ETV 07/22/2020 Appointment: Anna Culver WPtel: [id number] [place] [address] [place] ETV 07/08/2020 Appointment: Gianna Birmingham: [address] [facility] [address] [id number] [place] ECHO 07/02/2020 Appointment: Anna Culver WPtel: [address] [place] [address] [place] E452 06/11/2020 Appointment: Anna Culver WPtel: [address] [place] [address] E452 05/14/2020 Appointment: Anna Culver WPtel: [address] [place] [address] E452 04/17/2020 Appointment: Anna Culver WPtel: [address] [place] [address] E452 03/21/2020 Appointment: Anna Culver WPtel: [address] [place] [address] E452 02/14/2020 Appointment: Anna Culver WPtel: [address] [place] [address] E452 01/24/2020 Appointment: Anna Culver WPtel: [address] [place] [address] [place] E452 01/01/2020 Appointment: Anna Culver WPtel: [address] [place] [address] [place] E452 11/28/2019 Appointment: Anna Culver WPtel: [address] [place] [address] [place] E452 10/17/2019 Appointment: Anna Culver WPtel: [address] [place] [address] [place] E452 09/19/2019 Appointment: Sudha Hernadez WPtel: [address] [facility] b [id number] E452 07/04/2019 Appointment: Sudha Hernadez WPtel: [address] [facility] [id number] E452 06/21/2019 Appointment: Charlene Oropeza WPtel: [address] [facility] [id number] E452 05/24/2019 Appointment: Mallory Delgado E452 04/27/2019 Appointment: XavierCharlene goncalves WPtel: [address] [id number] E452 04/25/2019 Appointment: Rasta Palafox WPtel: [address] [facility] [id number] E452 03/28/2019 Appointment: Rasta Palafox WPtel: [address] [place] [address] [id number] E452 02/14/2019 Appointment: Rasta Palafox WPtel: [facility] [id number] E452 01/31/2019 Appointment: Rasta Palafox WPtel: [address] [place] [address] [id number] E420 12/27/2018 Referral: Pending Gynecology Referral Information Referral Processed Referral: Pending Pulmonolog y Referral Information Referral Processed Referral: Pending Psychiatry Referral Information Referral Initiated Referral: Pending Respirator y Services Referral Information Referral Initiated Referral: Pending Ophthalmology Referral Information Referral Initiated Referral: [facility] WPtel: [address] [place] Senior Visual Designer placed a call out to the patient to notify her that it has been recommended that she be seen by 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 Patient agreed to be seen, does not have a provider of choice and no transportation issues. Senior Visual Designer faxed referral and clinical notes to [facility] in [place], [place] near the patient's home. Patient to [...] seen and prefers a provider in the [place] or [place] area. Senior Visual Designer placed a call out to everyone listed in the area and the only location that was able to accept the patient's insurance was [place] [address] [place] [address] and spoke with Maylin. Maylin asked that the patient's referral, face sheet and visit notes be faxed to . Senior Visual Designer faxed over requested documents. Patient appointment confirmation letter generated and mailed to her home address. Patient to call to schedule an appointment. Processed Referral: [facility] W[facility]el: [address] [place] [address] Patient notified that it has been advised that she be seen by Neurology. Patient agreed to be seen and prefers to be seen by a provider in the [place], [place] area. Patient denies any concerns with transportation, and prefers to schedule her own appointment. Senior Visual Designer placed a [facility] to [facility] and spoke with Neeraj P: who confirmed that their office is able to accept new patients and the patient's insurance. After confirming the providers fax number, telegraphic typewriter mechanic faxed over the patient's referral, [...] patient . Video and audio call using eIQ[employer] R19.7-787.91 Diarrhea intermittent symptoms over the past few months, no known trigger discussed food elimination diet to rule-in potential lactose, gluten or artificial sweetener allergies (patient consumes stevia-sweetened beverages daily) denies hx of ibs trial probiotic, rx sent continue fluid replacement, bland diet E11.42-250.60 Type 2 diabetes mellitus with peripheral neuropathy ranging 104-212 encouraged to monitor diet for changes based on blood sugar discussed diabetic diet, encouraged plant based diet, Metformin 1000mg BID - elevated liver enzymes noted with last labs, will check labs at next home visit, may need to make adjustments to this medication uses monitor Biotel through [employer]-participant of [employer] 05/20/2021 Hemoglobin A1C 5.4; stable 10/17/2019 Lenora Fany 04/11-instructed on good daily foot care [...] previously discussed stress management routine follow up [place] [facility] [place] 03/13/2021 PHQ 9 Score 4 Sertraline 200mg daily 04/01/2021 Functional Assessment independent with ADLs R63.0-783.0 Anorexia consuming 1 -2 meals per day advised to continue to try small, more frequent food intake, discussed limiting carbonated beverages discussed benefits of [place] Instant Breakfast not using note weight has remained stable over the past couple months-will continue to monitor I10-401.9 Essential (primary) hypertension I11.0-402.91 Hypertensive heart disease with heart failure cont hctz and lisinopril 04/01/2021 HTN assessment complete discussed lifestyle modification including weight loss and limiting sodium intake 05/20/2021 GFR >60 [facility] lab didn't provide exact number 05/14/2020 EKG [...] denies any form of abuse or neglect Z12.4-V76.2 Encounter for screening for malignant neoplasm of cervix most recent pap in June 2020-[facility]-reports pap negative Z01.89-V72.85 Encounter for screening for tobacco use 03/13/2021 Tobacco screen complete-patient denies ever smoking Z12.31-V76.12 (Z12.31-V76.12) Encounter for screening mammogram for malignant neoplasm of breast Z12.11-V76.51 (Z12.11-V76.51) Encounter for screening for malignant neoplasm of colon Preventative testing not indicated due to age *I reviewed the most recent CDC guidelines regarding Covid-19/Coronavirus with the patient/caregiver/designee 08/13/2021 Medical Equipment No Medical Equipment data Advance Directives No Advance Directive data
--- OUTSIDE RECORDS SUMMARY | 2021-09-02 20:00 | XMS_ITS | CCD ---
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 Game Engineer Name Role Phone Palomo KING, Anna Primary Care Provider Unav ailable Unavailable Chronic Care Management Unavaila ble Summary Purpose DataExchange Insurance Providers Payer name Policy type / Coverage type Covered libertarian ID Effective Begin Date Effective End Date SUKI MAYO [id number] Unknown Unknown Family history Mother Diagnosis Age [...] Unknown Disability 05/31/[address]: 888445524 Has never s moked or chewed tobacco 05/31/[address]: 261831847 Never drinks alco hol 05/31/2018 Has the patient ever used illegal drugs? Unknown Has never used illegal drugs 05/31/2018 DNR Order/ Advanced Directive Unknown Full Code 05/31/2018 Allergies, Adverse Reactions, Alerts Substance Reaction Codes Entered Date Inactivated Date Status OxyContin itch, RxNorm: 286030 01/13/2021 No Inactive Da te Active *No [...] ICD-10: R51 ICD-9: 784.0 10/03/2018 Inactive Other care home (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 ICD-10: Z79.899 ICD-9: V58.69 04/25/2019 Inactive Type 2 diabetes mellitus wit hout complications ICD-10: E11.9 ICD-9: 250.00 10/03/2018 Inactive Wheezing ICD-10: R06.2 ICD-9: 786.07 08/08/2018 Inactive Abnormal urine finding ICD-10: R82.90 ICD-9: 791.9 09/24/2020 Resolved Abrasion of toe ICD-10: S90.416A ICD-9: 917.0 02/14/2020 Resolved [place] eye ICD-10: H10.029 ICD-9: 372.03 12/29/2019 Resolved [...] ICD-10: R60.9 ICD-9: 782.3 07/11/2018 Active 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 (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) use of non-steroidal anti-inflammatories (NSAID) ICD-10: Z79.1 ICD-9: V58.64 06/13/2018 Active Medications Medication Codes Instructions Start Date Stop Date Status Fill Instructions Easy Touch Alcohol Prep Pads RxNorm: 862618 USE DIRECTED EACH MORNING 09/03/20 21 2021 Inactive Probiotic 10 billion cell capsule RxNorm: 1143798 Take 1 Capsule(s) Oral every day 08/13/20 21 2021 Inactive levothyroxine 50 mcg tablet RxNorm: 628879 Take 1 Tablet(s) Oral every day 08/13/20 21 2020 Inactive Acid Machine Rebuilder (famotidine) 20 mg tablet RxNorm: 017204 Take 1 Tablet(s) Oral every morning 08/13/20 21 2020 Inactive Heartburn Relief (famotidine) 10 mg tablet RxNorm: 341761 Take 1 Tablet(s) Oral QAM 08/07/20 21 2020 Inactive levothyroxine 50 mcg tablet RxNorm: 253136 Take 1 Tablet(s) Oral QD 08/07/20 21 2020 Inactive metformin 1,000 mg tablet RxNorm: 866246 1 Tablet(s) Oral two times a day 07/16/20 21 2021 Inactive Singulair 10 mg tablet RxNorm: 609642 TAKE (1) TABLET BY MOUTH DAILY 07/16/20 21 2020 Inactive lisinopril 2.5 mg tablet RxNorm: 289693 Take 1 Tablet(s) Oral every day 07/11/20 21 2020 Inactive hydrochlorothiazide 25 mg tablet RxNorm: 382050 Take 1 Tablet(s) Oral every day 06/12/20 21 2020 Inactive ondansetron 4 mg disintegrating tablet RxNorm: 942651 1 Tablet(s) Oral two times a day 06/10/20 21 2020 Inactive Sudafed 12 Hour 120 mg tablet,extended release RxNorm: 4731061 TAKE 1 TABLET BY MOUTH EVERY 12 HOURS NEEDED 06/01/20 21 2021 Inactive Heartburn Relief (famotidine) 10 mg tablet RxNorm: 639267 Take 1 Tablet(s) Oral every morning 05/07/20 21 2020 Inactive omeprazole 20 mg capsule,delayed release RxNorm: 505917 1 Capsule(s) Oral every evening 04/03/20 21 2020 Inactive sertraline 100 mg tablet RxNorm: 504539 2 Tablet(s) Oral every day 03/13/20 21 2020 Inactive levothyroxine 50 mcg tablet RxNorm: 249512 TAKE (1) TABLET BY MOUTH DAILY 02/04/20 21 2020 Inactive metformin 500 mg tablet RxNorm: 717855 1 Tablet(s) Oral two times a day take with 500mg to equal 1000mg 01/14/20 21 2020 Inactive gabapentin 300 mg capsule RxNorm: 139225 TAKE 1 CAPSULE BY MOUTH THREE TIMES A DAY 01/14/20 21 2020 Inactive lisinopril 2.5 mg tablet RxNorm: 845716 TAKE 1 TABLET BY MOUTH DAILY 01/06/20 21 2020 Inactive gabapentin 300 mg capsule RxNorm: 498747 TAKE 1 CAPSULE BY MOUTH THREE TIMES A DAY 01/06/20 21 2020 Inactive Singulair 10 mg tablet RxNorm: 171822 TAKE (1) TABLET BY MOUTH DAILY 01/06/20 21 2020 Inactive metformin 1,000 mg tablet RxNorm: 849483 1 Tablet(s) Oral two times a day 01/06/20 21 2020 Inactive atorvastatin 40 mg tablet RxNorm: 478340 1 Tablet(s) Oral every day 12/06/19 21 2020 Inactive omeprazole 20 mg capsule,delayed release RxNorm: 839111 1 Capsule(s) Oral every evening 11/24/192020 Inactive famotidine 10 mg tablet RxNorm: 347123 1 Tablet(s) Oral every morning 11/24/19 21 2020 Inactive Alcohol Prep Pads RxNorm: 445940 USE EACH MORNING 10/14/19 21 2020 Inactive omeprazole 20 mg capsule,delayed release RxNorm: 924801 1 Capsule(s) Oral two times a day 10/13/19 21 2021 Inactive omeprazole 20 mg capsule,delayed release RxNorm: 403399 TAKE 1 CAPSULE BY MOUTH EVERY DAY 10/08/19 21 2021 Inactive Macrobid 100 mg capsule RxNorm: 747793 1 Capsule(s) Oral every 12 hours with food 10/01/202020 Inactive omeprazole 20 mg capsule,delayed release RxNorm: 480226 1 Capsule(s) Oral two times a day 09/24/20 20 2021 Inactive metformin 1,000 mg tablet RxNorm: 146330 1 Tablet(s) Oral two times a day 08/19/202020 Inactive start on September 11, 2020 metformin 500 mg tablet RxNorm: 866518 1 Tablet(s) Oral two times a day take with 500mg to equal 1000mg 08/19/202019 Inactive gabapentin 300 mg capsule RxNorm: 082115 TAKE 1 CAPSULE BY MOUTH THREE TIMES DAILY 07/11/202020 Inactive cetirizine 10 mg tablet RxNorm: 6941540 TAKE (1) TABLET BY MOUTH DAILY 07/11/20 20 2020 Inactive metformin 500 mg tablet RxNorm: 173264 1 Tablet(s) Oral two times a day 07/08/20 20 2019 Inactive loperamide 2 mg tablet RxNorm: 770219 1 Tablet(s) Oral as needed take one tablet after each loose stool, maximum of 8 tablets in 24 hours 06/24/202021 Inactive Sudafed 12 Hour 120 mg tablet,extended release RxNorm: 4609539 TAKE 1 TABLET BY MOUTH EVERY 12 HOURS NEEDED 06/11/20 20 2019 Inactive hydrochlorothiazide 25 mg tablet RxNorm: 587559 TAKE (1) TABLET BY MOUTH EVERY DAY 06/11/202019 Inactive omeprazole 20 mg capsule,delayed release RxNorm: 260735 TAKE 1 CAPSULE BY MOUTH EVERY DAY 05/14/202020 Inactive metformin 500 mg tablet RxNorm: 308611 1 Tablet(s) Oral every day 05/12/202019 Inactive True Metrix Glucose Test Strip RxNorm: 1 Test Strips Miscellaneous two times a day as needed 04/17/20 No Stop Date Active metformin 500 mg tablet RxNorm: 780614 1 Tablet(s) Oral every day 04/17/20 20 2019 Inactive diclofenac sodium 75 mg tablet,delayed release RxNorm: 940175 1 Tablet(s) PO BID 04/14/20 20 2021 Inactive This refill negates all other refills of this medication Sudafed 12 Hour 120 mg tablet,extended release RxNorm: 3565037 TAKE 1 TABLET BY MOUTH EVERY 12 HOURS NEEDED 03/14/20 20 2019 Inactive True Metrix Glucose Test Strip RxNorm: 1 Test Strips Miscellaneous every morning 03/13/20 20 2019 Inactive 100/container True Metrix Glucose Test Strip RxNorm: 1 Test Strips Miscellaneous QAM 02/22/20 20 2019 Inactive 100/container loperamide 2 mg tablet RxNorm: 843325 1 Tablet(s) Oral as needed take one tablet after each loose stool, maximum of 8 tablets in 24 hours 02/22/20 20 2019 Inactive cetirizine 10 mg tablet RxNorm: 5261305 1 Tablet(s) PO daily 01/17/20 20 2019 Inactive loperamide 2 mg tablet RxNorm: 630342 1 Tablet(s) Oral as needed take one tablet after each loose stool, maximum of 8 tablets in 24 hours 01/17/20 20 2019 Inactive quetiapine 100 mg tablet RxNorm: 975192 1 Tablet(s) Oral every night at bedtime 01/17/20 20 2019 Inactive levothyroxine 50 mcg tablet RxNorm: 515594 1 Tablet(s) PO daily 01/17/20 20 2020 Inactive gabapentin 300 mg capsule RxNorm: 133366 1 Capsule(s) PO TID 01/17/20 20 2019 Inactive levothyroxine 50 mcg tablet RxNorm: 426694 1 Tablet(s) PO daily 01/15/20 20 2019 Inactive lisinopril 2.5 mg tablet RxNorm: 840961 1 Tablet(s) PO daily 01/15/20 20 2020 Inactive gabapentin 300 mg capsule RxNorm: 957973 1 Capsule(s) PO TID 01/15/20 20 2019 Inactive cetirizine 10 mg tablet RxNorm: 6672982 1 Tablet(s) PO daily 01/15/20 20 2019 Inactive Singulair 10 mg tablet RxNorm: 931763 1 Tablet(s) PO daily 01/15/20 20 2020 Inactive gentamicin 0.3 % eye drops RxNorm: 328645 1 Drop(s) ophthalmic (eye) four times a day 12/29/19 20 2019 Inactive gentamicin 0.3 % eye drops RxNorm: 765181 1 Drop(s) ophthalmic (eye) four times a day 12/29/19 20 2019 Inactive gentamicin 0.3 % eye drops RxNorm: 377753 1 Drop(s) ophthalmic (eye) four times a day 12/29/19 20 2019 Inactive hydrochlorothiazide 25 mg tablet RxNorm: 480459 1 Tablet(s) Oral every day 12/21/19 20 2019 Inactive Sudafed 12 Hour 120 mg tablet,extended release RxNorm: 3685699 TAKE (1) TABLET BY MOUTH EVERY 12 HOURS NEEDED 12/21/19 20 2019 Inactive loperamide 2 mg tablet RxNorm: 453174 1 Tablet(s) Oral as needed take one tablet after each loose stool, maximum of 8 tablets in 24 hours 12/11/19 20 2019 Inactive loperamide 2 mg tablet RxNorm: 297805 1 Tablet(s) Oral as needed take one tablet after each loose stool, maximum of 8 tablets in 24 hours 12/11/19 20 2019 Inactive atorvastatin 40 mg tablet RxNorm: 057472 1 Tablet(s) Oral every day 11/29/19 20 2020 Inactive quetiapine 100 mg tablet RxNorm: 658822 1 Tablet(s) Oral every night at bedtime 11/28/19 20 2019 Inactive sertraline 100 mg tablet RxNorm: 003353 1 Tablet(s) Oral 11/28/19 20 2019 Inactive omeprazole 20 mg capsule,delayed release RxNorm: 301100 1 Capsule(s) Oral every day 11/20/19 20 2019 Inactive amoxicillin 250 mg capsule RxNorm: 513140 1 Capsule(s) Oral three times a day 11/07/19 20 2019 Inactive multivitamin with iron-mineral tablet RxNorm: 1 Tablet(s) Oral every day 10/29/19 20 2021 Inactive cetirizine 10 mg tablet RxNorm: 5092066 1 Tablet(s) PO daily 10/20/19 20 2019 Inactive This refill negates all other refills of this medication. Please do not auto refill Singulair 10 mg tablet RxNorm: 817151 1 Tablet(s) PO daily 10/20/192019 Inactive This refill negates all other refills of this medication gabapentin 300 mg capsule RxNorm: 571098 1 Capsule(s) PO TID 10/20/192019 Inactive lisinopril 2.5 mg tablet RxNorm: 772315 1 Tablet(s) PO daily 10/20/19 20 2019 Inactive levothyroxine 50 mcg tablet RxNorm: 657403 1 Tablet(s) PO daily 10/20/192019 Inactive This refill negates all other refills of this medication fenugreek seed extract 500 mg capsule RxNorm: 1 Capsule(s) Oral three times a day 10/17/19 20 2021 Inactive hydrochlorothiazide 25 mg tablet RxNorm: 345905 1 Tablet(s) Oral every day 10/17/19 20 2019 Inactive Alcohol Prep Pads RxNorm: 709798 1 Patch TOP QAM 10/16/19 20 2020 Inactive loperamide 2 mg tablet RxNorm: 188444 1 Tablet(s) Oral as needed take one [...] 2019 Inactive hydrochlorothiazide 25 mg tablet RxNorm: 941920 1 Tablet(s) Oral every day 09/19/20 19 2019 Inactive Sudafed 12 Hour 120 mg tablet,extended release RxNorm: 2046789 1 Tablet(s) Oral every 12 hours as needed 09/11/20 19 2018 Inactive omeprazole 20 mg capsule,delayed release RxNorm: 864856 1 Capsule(s) Oral every day 09/07/20 19 2019 Inactive Sudafed 12 Hour 120 mg tablet,extended release RxNorm: 1353350 1 Tablet(s) Oral every 12 hours as needed 09/04/20 19 2018 Inactive pantoprazole 40 mg tablet,delayed release RxNorm: 805082 1 Tablet(s) Oral every day 08/24/202018 Inactive discontinue any other H2Blkr. and PPI albuterol sulfate 2.5 mg/3 mL (0.083 %) solution for nebulization RxNorm: 356361 1 Vial Inhalation every four hours as needed as needed for dyspnea 08/17/20 19 2019 Inactive 60/box. This refill negates all other refills of this medication. Please do not fill early. Please do not auto refill. Symbicort 160 mcg-4.5 mcg/actuation HFA aerosol inhaler RxNorm: 2736563 2 Puff(s) INH BID 08/17/20 19 No Stop Date Active Alcohol Prep Pads RxNorm: 005528 1 Patch TOP QAM 08/17/20 19 2019 Inactive Ventolin HFA 90 mcg/actuation aerosol inhaler RxNorm: 907943 2 Puff(s) INH QID 08/09/20 19 2019 Inactive Please do not fill early. Please do not auto refill. This refill negates all other refills of this medication True Metrix Glucose Test Strip RxNorm: 1 Test Strips Miscellaneous QAM 08/09/20 19 2019 Inactive 100/container atorvastatin 40 mg tablet RxNorm: 584293 1 Tablet(s) Oral every day 07/04/20 19 2019 Inactive levmetamfetamine 50 mg nasal inhaler RxNorm: 1 Unit(s) NASAL Q3-4H Do not use more than every 3 hours or 8 times/24hours 06/26/20 19 2021 Inactive Please do not auto refill. This refill negates all other refills of this medication buspirone 7.5 mg tablet RxNorm: 888221 1 Tablet(s) PO BID 06/26/20 19 2020 Inactive This refill negates all other refills of this medication hydrochlorothiazide 12.5 mg tablet RxNorm: 602175 1 Tablet(s) PO QAM 06/26/20 19 2019 Inactive Ventolin HFA 90 mcg/actuation aerosol inhaler RxNorm: 084526 2 Puff(s) INH QID 06/26/20 19 2018 Inactive Please do not fill early. Please do not auto refill. This refill negates all other refills of this medication Singulair 10 mg tablet RxNorm: 596746 1 Tablet(s) PO daily 06/26/20 19 2019 Inactive This refill negates all other refills of this medication cetirizine 10 mg tablet RxNorm: 1491650 1 Tablet(s) PO daily 06/26/20 19 2019 Inactive This refill negates all other refills of this medication. Please do not auto refill levothyroxine 50 mcg tablet RxNorm: 790976 1 Tablet(s) PO daily 06/26/20 19 2019 Inactive This refill negates all other refills of this medication diclofenac sodium 75 mg tablet,delayed release RxNorm: 158348 1 Tablet(s) PO BID 06/26/20 19 2019 Inactive This refill negates all other refills of this medication ranitidine 150 mg tablet RxNorm: 528470 1 Tablet(s) PO BID 06/26/20 19 2018 Inactive This refill negates all other refills of this medication Calcium 600-D3 Plus (mag-zinc) 600 mg calcium-800 unit-50 mg tablet RxNorm: 1 Tablet(s) PO daily take an additonal tablet for itching. 06/26/20 19 2018 Inactive This refill negates all other refills of this medication albuterol sulfate 2.5 mg/3 mL (0.083 %) solution for nebulization RxNorm: 307378 1 Vial INH QID 06/26/20 19 2018 Inactive 60/box. This refill negates all other refills of this medication. Please do not fill early. Please do not auto refill. lisinopril 2.5 mg tablet RxNorm: 066210 1 Tablet(s) PO daily 06/21/20 19 2019 Inactive gabapentin 300 mg capsule RxNorm: 913258 1 Capsule(s) PO TID 06/21/20 19 2019 Inactive atorvastatin 20 mg tablet RxNorm: 843517 1 Tablet(s) PO QHS 06/07/202018 Inactive This refill negates all other refills of this medication TRUEplus Lancets 30 gauge RxNorm: 1 Lancets Miscellaneous QAM 05/29/20 19 2018 Inactive 100/box gabapentin 300 mg capsule RxNorm: 174908 1 Capsule(s) PO TID 05/03/20 19 2018 Inactive Flintstones Complete (iron) 18 mg iron chewable tablet RxNorm: 1 Tablet(s) PO daily 04/04/20 19 2021 Inactive This refill negates all other refills of this medication gabapentin 300 mg capsule RxNorm: 774650 1 Capsule(s) PO TID as needed 02/01/202018 Inactive True Metrix Glucose Test Strip RxNorm: 1 Test Strips Miscellaneous [facility] 02/01/20 19 2018 Inactive 100/container Alcohol Prep Pads RxNorm: 878286 1 Patch TOP QA 02/01/20 19 2018 Inactive TRUEplus Lancets 30 gauge RxNorm: 1 Lancets Miscellaneous QAM 02/01/20 19 2018 Inactive 100/box lisinopril 2.5 mg tablet RxNorm: 656700 1 Tablet(s) PO daily 12/28/19 19 2018 Inactive ranitidine 150 mg tablet RxNorm: 809299 1 Tablet(s) PO BID 10/21/19 19 2018 Inactive This refill negates all other refills of this medication albuterol sulfate 2.5 mg/3 mL (0.083 %) solution for nebulization RxNorm: 996161 1 Vial INH QID 10/21/19 19 2018 [...] this medication gabapentin 300 mg capsule RxNorm: 179263 1 Capsule(s) PO TID as needed 10/21/19 19 2018 Inactive atorvastatin 20 mg tablet RxNorm: 428946 1 Tablet(s) PO QHS 10/21/192018 Inactive This refill negates all other refills of this medication trazodone 50 mg tablet RxNorm: 024967 1 Tablet(s) PO QHS 10/21/192018 Inactive This refill negates all other refills of this medication Ventolin HFA 90 mcg/actuation aerosol inhaler RxNorm: 916966 2 Puff(s) INH QID 10/21/192018 Inactive Please do not fill early. Please do not auto refill. This refill negates all other refills of this medication Calcium 600-D3 Plus 600 mg calcium-800 unit-50 mg tablet RxNorm: 1 Tablet(s) PO daily take an additonal tablet for itching. 10/21/192018 Inactive This refill negates all other refills of this medication Singulair 10 mg tablet RxNorm: 643465 1 Tablet(s) PO daily 10/21/192018 Inactive This refill negates all other refills of this medication buspirone 7.5 mg tablet RxNorm: 288134 1 Tablet(s) PO BID 10/21/192018 Inactive This refill negates all other refills of this medication diclofenac sodium 75 mg tablet,delayed release RxNorm: 823961 1 Tablet(s) PO BID 10/21/19 19 2018 Inactive This refill negates all other refills of this medication hydrochlorothiazide 12.5 mg tablet RxNorm: 148024 1 Tablet(s) PO QAM 10/21/19 19 2018 Inactive metoprolol succinate ER 50 mg tablet,extended release 24 hr RxNorm: 692892 1 Tablet(s) PO daily 10/21/19 19 2018 Inactive This refill negates all other refills of this medication levothyroxine 50 mcg tablet RxNorm: 558901 1 Tablet(s) PO daily 10/21/19 19 2018 Inactive This refill negates all other refills of this medication cetirizine 10 mg tablet RxNorm: 0444384 1 Tablet(s) PO daily 10/21/19 19 2018 Inactive This refill negates all other refills of this medication. Please do not auto refill Flintstones Complete (iron) 18 mg iron chewable tablet RxNorm: 1 Tablet(s) PO daily 10/21/19 19 2018 Inactive This refill negates all other refills of this medication buspirone 7.5 mg tablet RxNorm: 748084 1 Tablet(s) PO BID 10/12/192018 Inactive cetirizine 10 mg tablet RxNorm: 7441811 1 Tablet(s) PO daily 09/28/20 18 2018 Inactive Guaiasorb DM 10 mg-100 mg/5 mL oral liquid RxNorm: 095855 10 Milliliter(s) PO As needed every 4 hr 09/24/202018 Inactive Vicks Vaporub 4.7 %-1.2 %-2.6 % topical ointment RxNorm: 3176234 1 Application TOP TID 09/24/20 18 2018 Inactive levmetamfetamine 50 mg nasal inhaler RxNorm: 1 Unit(s) NASAL Q3-4H 09/24/20 18 2017 Inactive sertraline 50 mg tablet RxNorm: 160494 1 Tablet(s) PO daily 09/09/20 18 2018 Inactive Please note dose trazodone 50 mg tablet RxNorm: 714826 1 Tablet(s) PO QHS 09/06/20 18 2018 Inactive sertraline 50 mg tablet RxNorm: 106700 1 Tablet(s) PO daily 09/06/20 18 2017 Inactive amoxicillin 500 mg tablet RxNorm: 350128 1 Tablet(s) PO Q12H 08/31/20 18 2017 Inactive albuterol sulfate 2.5 mg/3 mL (0.083 %) solution for nebulization RxNorm: 880599 1 Vial INH QID 08/10/20 18 2018 Inactive 60/box. Please do not fill early. Please do not auto refill. Prozac 10 mg capsule RxNorm: 266597 1 Capsule(s) PO daily 08/09/20 18 2017 Inactive buspirone 7.5 mg tablet RxNorm: 355499 1 Tablet(s) PO BID 08/09/20 18 2018 Inactive gabapentin 300 mg capsule RxNorm: 645043 1 Capsule(s) PO TID as needed 08/01/20 18 2018 Inactive hydrochlorothiazide 12.5 mg tablet RxNorm: 202543 1 Tablet(s) PO QAM 08/01/20 18 2018 Inactive ranitidine 150 mg tablet RxNorm: 948657 1 Tablet(s) PO BID 08/01/20 18 2018 Inactive Macrobid 100 mg capsule RxNorm: 361311 1 Capsule(s) PO Q12H 06/21/20 18 2017 Inactive Singulair 10 mg tablet RxNorm: 925209 1 Tablet(s) PO daily 06/14/20 18 2018 Inactive Ventolin HFA 90 mcg/actuation aerosol inhaler RxNorm: 8949237 2 Puff(s) INH QID 06/14/20 18 2018 Inactive Singulair 10 mg tablet RxNorm: 775812 1 Tablet(s) PO daily 06/14/20 18 2017 Inactive buspirone 7.5 mg tablet RxNorm: 890819 1 Tablet(s) PO BID 06/14/20 18 2017 Inactive Prozac 10 mg capsule RxNorm: 035596 1 Capsule(s) PO daily 06/14/20 18 2017 Inactive Neilmed Pediatric Sinus Rinse Refill packet RxNorm: 1 Unit Dose NASAL PRN 05/31/20 18 2021 Inactive diclofenac sodium 75 mg tablet,delayed release RxNorm: 684014 1 Tablet(s) PO BID 05/31/20 18 2017 Inactive lisinopril 2.5 mg tablet RxNorm: 470764 1 Tablet(s) PO daily 05/31/20 18 2017 Inactive metoprolol succinate ER 50 mg tablet,extended release 24 hr RxNorm: 415166 1 Tablet(s) PO daily 05/31/20 18 2017 Inactive levothyroxine 50 mcg tablet RxNorm: 919736 1 Tablet(s) PO daily 05/31/20 18 2017 Inactive TRUEplus Lancets 30 gauge RxNorm: 1 Lancets Miscellaneous QAM 05/31/20 18 2017 Inactive 100/box Ventolin HFA 90 mcg/actuation aerosol inhaler RxNorm: 715423 2 Puff(s) INH QID 05/31/20 18 2017 Inactive Aleve 220 mg capsule RxNorm: 6444746 1 Capsule(s) PO BID 05/31/20 18 2018 Inactive ranitidine 150 mg tablet RxNorm: 388617 1 Tablet(s) PO BID 05/31/20 18 2017 Inactive gabapentin 300 mg capsule RxNorm: 612207 1 Capsule(s) PO TID as needed 05/31/20 18 2017 Inactive atorvastatin 20 mg tablet RxNorm: 733722 1 Tablet(s) PO QHS 05/31/20 18 2017 Inactive True Metrix Glucose Test Strip RxNorm: 1 Test Strips Miscellaneous QAM 05/31/20 18 2017 Inactive 50/container Calcium 600-D3 Plus 600 mg calcium-800 unit-50 mg tablet RxNorm: 1 Tablet(s) PO daily take an additonal tablet for itching. 05/31/20 18 2017 Inactive hydrochlorothiazide 12.5 mg tablet RxNorm: 256334 1 Tablet(s) PO QAM 05/31/20 18 2017 Inactive Flintstones Complete (iron) 18 mg iron chewable tablet RxNorm: 1 Tablet(s) PO daily 05/31/20 18 2017 Inactive d-mannose oral powder RxNorm: PO 18 2021 Inactive True Metrix Glucose Meter RxNorm: miscellaneous 08/17/20 19 2018 Inactive sertraline 50 mg tablet RxNorm: 950096 1 Tablet(s) PO daily 11/28/19 20 2019 Inactive loperamide 2 mg tablet RxNorm: 824388 oral 09/29/20 19 2018 Inactive Symbicort 160 mcg-4.5 mcg/actuation HFA aerosol inhaler RxNorm: 7569096 2 Puff(s) INH BID 08/17/20 19 2018 Inactive Medication Administered No Medication Administered data Procedures Procedure Codes Date Frailty Screening CPT-4: SFD 05/20/2021 Hypertension CPT-4: HTN 04/01/2021 Tobacco Assessment/Screening CPT-4: TCA 08/2021 Patient Health Questionnaire CPT-4: DPHQ 08/2021 Mini Mental State Exam CPT-4: DMMA Annual Wellness Visit (Subsequent Visit) CPT-4: G0439 01/13/2021 Advanced Care Planning CPT-4: VACP Fall Risk Assessment SNOMED CT: 88044965 4 CPT-4: DFRA 01/13/2021 Julian Fany Assessment CPT-4: DSWA 12/01 Urinalysis, dip stick CPT-4: 18986 09/24/2020 Patient Health Questionnaire CPT-4: DPHQ Electrocardiogram CPT-4: 06345 05/14/2020 Tobacco Assessment/Screening CPT-4: TCA Fall Risk Assessment SNOMED CT: 11883248 4 CPT-4: DFRA 01/01/2020 Functional Assessment CPT-4: DFA 01/01/2020 Julian Fany Assessment CPT-4: DSWA 11/04 Patient Health Questionnaire CPT-4: DPHQ Julian Fany Assessment CPT-4: DSWA 10/03 Hypertension CPT-4: HTN 10/17/2019 Fall Risk Assessment SNOMED CT: 28208563 4 CPT-4: DFRA 09/19/2019 Functional Assessment CPT-4: DFA 09/19/2019 Urinalysis, dip stick CPT-4: 92578 06/21/2019 Tobacco Assessment/Screening CPT-4: TCA Patient Health Questionnaire CPT-4: DPHQ AHA/REBECCA Classification Assessment CPT-4: DAHA 04/25/2019 Controlled Substance Report CPT-4: CTRSU 04/03 Urinalysis, dip stick CPT-4: 31376 03/28/2019 Urinalysis, dip stick CPT-4: 60903 03/28/2019 R6L-Ubnjqdztscbhzue CPT-4: 71056 Unknown Z0S-Akqxwjtdjjjnmhn CPT-4: 32550 Unknown B9C-Fcvznajndnkbzdo CPT-4: 76730 Unknown V8L-Thkvxoqvkjwatqx CPT-4: 33017 Unknown D6G-Mqtlmrcvwxlyrzm CPT-4: 57770 Unknown X6C-Zfiyyfeezvyabtj CPT-4: 15470 Unknown O2X-Zcjnnarerehvubk CPT-4: 41242 Unknown Gynecology Referral SNOMED CT: 655065096 CPT-4: R14 Unknown Reason For Visit No Reason For Visit data Plan of Care Planned Activity Notes Codes Status Date Referral: Pending Gynecology Referral Information Referral Processed Referral: Pending Pulmonolog y Referral Information Referral Processed Referral: Pending Psychiatry Referral Information Referral Initiated Referral: Pending Respirator y Services Referral Information Referral Initiated Referral: Pending Ophthalmol ogy Referral Information Referral Initiated Referral: [facility]: [address] [place] [address] [address] [place] [address] [place] [employer] placed a call out to the patient to notify her that it has been recommended that she be seen by 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 Patient agreed to be seen, does not have a provider of choice and no transportation issues. [employer] faxed referral and clinical notes to [facility] in [place], [place] near the patient's home. Patient to [...] seen and prefers a provider in the [place] or [place] area. [employer] placed a call out to everyone listed in the area and the only location that was able to accept the patient's insurance was [facility] [place] [id number] and spoke with Maylin. Maylin asked that the patient's referral, face sheet and visit notes be faxed to . [employer] faxed over requested documents. Patient appointment confirmation letter generated and mailed to her home address. Patient to call to schedule an appointment. Processed [facility]erral: [facility] WPtel: [address] [place], [place] [id number] Patient notified that it has been advised that she be seen by Neurology. Patient agreed to be seen and prefers to be seen by a provider in the [place], [place] area. Patient denies any concerns with transportation, and prefers to schedule her own appointment. [employer] placed a call out to [facility] and spoke with Neeraj [...]
--- OUTSIDE RECORDS SUMMARY | 2021-09-09 20:00 | XMS_ITS | CCD ---
Author Name Chivo Bishop NP Address [address] [place] [address] Phone Organization [facility] Phone Care Team Providers Care Picture Engraver Name Role Phone Palomo KING, Anna Primary Care Provider Unav ailable Unavailable Chronic Care Management Unavaila ble Summary Purpose DataExchange Insurance Providers Payer name Policy type / Coverage type Covered green party ID Effective Begin Date Effective End Date SUKI MAYO [id number] Unknown Unknown Family history Mother Diagnosis Age [...] Unknown Disability 05/31/[address]: 372814440 Has never s moked or chewed tobacco 05/31/[address]: 100280056 Never drinks alco hol 05/31/2018 Has the patient ever used illegal drugs? Unknown Has never used illegal drugs 05/31/2018 DNR Order/ Advanced Directive Unknown Full Code 05/31/2018 Allergies, Adverse Reactions, Alerts Substance Reaction Codes Entered Date Inactivated Date Status OxyContin itch, RxNorm: 359633 01/13/2021 No Inactive Da te Active *No known food allergies Unknown 09/06/2018 No I nactive Date Active Methylprednisolone hives RxNorm: 6902 09/06/2018 No Inac tive Date Active Problems Condition Codes Effective Dates Condition St atus Patient not seen ICD-10: UXZ.01 ICD-9: UXZ.01 09/10/2021 Active Diarrhea ICD-10: R19.7 ICD-9: 787.91 08/13/2021 Active [...] ICD-10: R51 ICD-9: 784.0 10/03/2018 Inactive Other terminologist (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 ICD-10: Z79.899 ICD-9: V58.69 04/25/2019 Inactive Type 2 diabetes mellitus wit hout complications ICD-10: E11.9 ICD-9: 250.00 10/03/2018 Inactive Wheezing ICD-10: R06.2 ICD-9: 786.07 08/08/2018 Inactive Abnormal urine finding ICD-10: R82.90 ICD-9: 791.9 09/24/2020 Resolved Abrasion of toe ICD-10: S90.416A ICD-9: 917.0 02/14/2020 Resolved Knapp eye ICD-10: H10.029 ICD-9: 372.03 12/29/2019 Resolved [...] unspecified ICD-10: R60.9 ICD-9: 782.3 07/11/2018 Active half-way (current) use of non-steroidal anti-inflammatories (NSAID) ICD-10: Z79.1 ICD-9: V58.64 06/13/2018 Active Medications Medication Codes Instructions Start Date Stop Date Status Fill Instructions Easy Touch Alcohol Prep Pads RxNorm: 649947 USE DIRECTED EACH MORNING 09/03/20 21 2021 Inactive Probiotic 10 billion cell capsule RxNorm: 7828478 Take 1 Capsule(s) Oral every day 08/13/20 21 2021 Inactive levothyroxine 50 mcg tablet RxNorm: 843305 Take 1 Tablet(s) Oral every day 08/13/20 21 2020 Inactive Acid Solution Lead (famotidine) 20 mg tablet RxNorm: 510973 Take 1 Tablet(s) Oral every morning 08/13/20 21 2020 Inactive Heartburn Relief (famotidine) 10 mg tablet RxNorm: 153629 Take 1 Tablet(s) Oral QAM 08/07/20 21 2020 Inactive levothyroxine 50 mcg tablet RxNorm: 692161 Take 1 Tablet(s) Oral QD 08/07/20 21 2020 Inactive metformin 1,000 mg tablet RxNorm: 628949 1 Tablet(s) Oral two times a day 07/16/20 21 2021 Inactive Singulair 10 mg tablet RxNorm: 537647 TAKE (1) TABLET BY MOUTH DAILY 07/16/20 21 2020 Inactive lisinopril 2.5 mg tablet RxNorm: 575443 Take 1 Tablet(s) Oral every day 07/11/20 21 2020 Inactive hydrochlorothiazide 25 mg tablet RxNorm: 411457 Take 1 Tablet(s) Oral every day 06/12/20 21 2020 Inactive ondansetron 4 mg disintegrating tablet RxNorm: 655612 1 Tablet(s) Oral two times a day 06/10/20 21 2020 Inactive Sudafed 12 Hour 120 mg tablet,extended release RxNorm: 1169477 TAKE 1 TABLET BY MOUTH EVERY 12 HOURS NEEDED 06/01/20 21 2021 Inactive Heartburn Relief (famotidine) 10 mg tablet RxNorm: 670191 Take 1 Tablet(s) Oral every morning 05/07/20 21 2020 Inactive omeprazole 20 mg capsule,delayed release RxNorm: 234861 1 Capsule(s) Oral every evening 04/03/20 21 2020 Inactive sertraline 100 mg tablet RxNorm: 944311 2 Tablet(s) Oral every day 03/13/20 21 2020 Inactive levothyroxine 50 mcg tablet RxNorm: 136460 TAKE (1) TABLET BY MOUTH DAILY 02/04/20 21 2020 Inactive metformin 500 mg tablet RxNorm: 773675 1 Tablet(s) Oral two times a day take with 500mg to equal 1000mg 01/14/20 21 2020 Inactive gabapentin 300 mg capsule RxNorm: 738484 TAKE 1 CAPSULE BY MOUTH THREE TIMES A DAY 01/14/20 21 2020 Inactive lisinopril 2.5 mg tablet RxNorm: 252556 TAKE 1 TABLET BY MOUTH DAILY 01/06/20 21 2020 Inactive gabapentin 300 mg capsule RxNorm: 422914 TAKE 1 CAPSULE BY MOUTH THREE TIMES A DAY 01/06/20 21 2020 Inactive Singulair 10 mg tablet RxNorm: 256133 TAKE (1) TABLET BY MOUTH DAILY 01/06/20 21 2020 Inactive metformin 1,000 mg tablet RxNorm: 732395 1 Tablet(s) Oral two times a day 01/06/20 21 2020 Inactive atorvastatin 40 mg tablet RxNorm: 939698 1 Tablet(s) Oral every day 12/06/19 21 2020 Inactive omeprazole 20 mg capsule,delayed release RxNorm: 333757 1 Capsule(s) Oral every evening 11/24/19 21 2020 Inactive famotidine 10 mg tablet RxNorm: 384387 1 Tablet(s) Oral every morning 11/24/19 21 2020 Inactive Alcohol Prep Pads RxNorm: 276071 USE EACH MORNING 10/14/19 21 2020 Inactive omeprazole 20 mg capsule,delayed release RxNorm: 953331 1 Capsule(s) Oral two times a day 10/13/19 21 2021 Inactive omeprazole 20 mg capsule,delayed release RxNorm: 591615 TAKE 1 CAPSULE BY MOUTH EVERY DAY 10/08/192021 Inactive Macrobid 100 mg capsule RxNorm: 992324 1 Capsule(s) Oral every 12 hours with food 10/01/202020 Inactive omeprazole 20 mg capsule,delayed release RxNorm: 689419 1 Capsule(s) Oral two times a day 09/24/202021 Inactive metformin 1,000 mg tablet RxNorm: 851851 1 Tablet(s) Oral two times a day 08/19/202020 Inactive start on September 11, 2020 metformin 500 mg tablet RxNorm: 558213 1 Tablet(s) Oral two times a day take with 500mg to equal 1000mg 08/19/20 20 2019 Inactive gabapentin 300 mg capsule RxNorm: 192708 TAKE 1 CAPSULE BY MOUTH THREE TIMES DAILY 07/11/20 20 2020 Inactive cetirizine 10 mg tablet RxNorm: 5022523 TAKE (1) TABLET BY MOUTH DAILY 07/11/20 20 2020 Inactive metformin 500 mg tablet RxNorm: 522941 1 Tablet(s) Oral two times a day 07/08/20 20 2019 Inactive loperamide 2 mg tablet RxNorm: 423233 1 Tablet(s) Oral as needed take one tablet after each loose stool, maximum of 8 tablets in 24 hours 06/24/202021 Inactive Sudafed 12 Hour 120 mg tablet,extended release RxNorm: 6402243 TAKE 1 TABLET BY MOUTH EVERY 12 HOURS NEEDED 06/11/20 20 2019 Inactive hydrochlorothiazide 25 mg tablet RxNorm: 465806 TAKE (1) TABLET BY MOUTH EVERY DAY 06/11/20 20 2019 Inactive omeprazole 20 mg capsule,delayed release RxNorm: 186733 TAKE 1 CAPSULE BY MOUTH EVERY DAY 05/14/20 20 2020 Inactive metformin 500 mg tablet RxNorm: 346881 1 Tablet(s) Oral every day 05/12/20 20 2019 Inactive True Metrix Glucose Test Strip RxNorm: 1 Test Strips Miscellaneous two times a day as needed 04/17/20 No Stop Date Active metformin 500 mg tablet RxNorm: 277538 1 Tablet(s) Oral every day 04/17/20 20 2019 Inactive diclofenac sodium 75 mg tablet,delayed release RxNorm: 125341 1 Tablet(s) PO BID 04/14/20 20 2021 Inactive This refill negates all other refills of this medication Sudafed 12 Hour 120 mg tablet,extended release RxNorm: 8219626 TAKE 1 TABLET BY MOUTH EVERY 12 HOURS NEEDED 03/14/20 20 2019 Inactive True Metrix Glucose Test Strip RxNorm: 1 Test Strips Miscellaneous every morning 03/13/20 20 2019 Inactive 100/container True Metrix Glucose Test Strip RxNorm: 1 Test Strips Miscellaneous QA 02/22/20 20 2019 Inactive 100/container loperamide 2 mg tablet RxNorm: 476000 1 Tablet(s) Oral as needed take one tablet after each loose stool, maximum of 8 tablets in 24 hours 02/22/20 20 2019 Inactive cetirizine 10 mg tablet RxNorm: 7168024 1 Tablet(s) PO daily 01/17/20 20 2019 Inactive loperamide 2 mg tablet RxNorm: 568122 1 Tablet(s) Oral as needed take one tablet after each loose stool, maximum of 8 tablets in 24 hours 01/17/20 20 2019 Inactive quetiapine 100 mg tablet RxNorm: 154437 1 Tablet(s) Oral every night at bedtime 01/17/20 20 2019 Inactive levothyroxine 50 mcg tablet RxNorm: 324032 1 Tablet(s) PO daily 01/17/20 20 2020 Inactive gabapentin 300 mg capsule RxNorm: 121544 1 Capsule(s) PO TID 01/17/20 20 2019 Inactive levothyroxine 50 mcg tablet RxNorm: 566229 1 Tablet(s) PO daily 01/15/20 20 2019 Inactive lisinopril 2.5 mg tablet RxNorm: 616585 1 Tablet(s) PO daily 01/15/20 20 2020 Inactive gabapentin 300 mg capsule RxNorm: 500849 1 Capsule(s) PO TID 01/15/20 20 2019 Inactive cetirizine 10 mg tablet RxNorm: 0088103 1 Tablet(s) PO daily 01/15/20 20 2019 Inactive Singulair 10 mg tablet RxNorm: 217199 1 Tablet(s) PO daily 01/15/20 20 2020 Inactive gentamicin 0.3 % eye drops RxNorm: 016177 1 Drop(s) ophthalmic (eye) four times a day 12/29/19 20 2019 Inactive gentamicin 0.3 % eye drops RxNorm: 871458 1 Drop(s) ophthalmic (eye) four times a day 12/29/19 20 2019 Inactive gentamicin 0.3 % eye drops RxNorm: 226856 1 Drop(s) ophthalmic (eye) four times a day 12/29/19 20 2019 Inactive hydrochlorothiazide 25 mg tablet RxNorm: 842647 1 Tablet(s) Oral every day 12/21/19 20 2019 Inactive Sudafed 12 Hour 120 mg tablet,extended release RxNorm: 2798305 TAKE (1) TABLET BY MOUTH EVERY 12 HOURS NEEDED 12/21/19 20 2019 Inactive loperamide 2 mg tablet RxNorm: 783692 1 Tablet(s) Oral as needed take one tablet after each loose stool, maximum of 8 tablets in 24 hours 12/11/19 20 2019 Inactive loperamide 2 mg tablet RxNorm: 266280 1 Tablet(s) Oral as needed take one tablet after each loose stool, maximum of 8 tablets in 24 hours 12/11/19 20 2019 Inactive atorvastatin 40 mg tablet RxNorm: 338062 1 Tablet(s) Oral every day 11/29/19 20 2020 Inactive quetiapine 100 mg tablet RxNorm: 832307 1 Tablet(s) Oral every night at bedtime 11/28/19 20 2019 Inactive sertraline 100 mg tablet RxNorm: 632150 1 Tablet(s) Oral 11/28/19 20 2019 Inactive omeprazole 20 mg capsule,delayed release RxNorm: 147550 1 Capsule(s) Oral every day 11/20/19 20 2019 Inactive amoxicillin 250 mg capsule RxNorm: 576326 1 Capsule(s) Oral three times a day 11/07/19 20 2019 Inactive multivitamin with iron-mineral tablet RxNorm: 1 Tablet(s) Oral every day 10/29/19 20 2021 Inactive cetirizine 10 mg tablet RxNorm: 2842429 1 Tablet(s) PO daily 10/20/19 20 2019 Inactive This refill negates all other refills of this medication. Please do not auto refill Singulair 10 mg tablet RxNorm: 674283 1 Tablet(s) PO daily 10/20/19 20 2019 Inactive This refill negates all other refills of this medication gabapentin 300 mg capsule RxNorm: 389510 1 Capsule(s) PO TID 10/20/19 20 2019 Inactive lisinopril 2.5 mg tablet RxNorm: 948354 1 Tablet(s) PO daily 10/20/19 20 2019 Inactive levothyroxine 50 mcg tablet RxNorm: 130354 1 Tablet(s) PO daily 10/20/19 20 2019 Inactive This refill negates all other refills of this medication fenugreek seed extract 500 mg capsule RxNorm: 1 Capsule(s) Oral three times a day 10/17/19 20 2021 Inactive hydrochlorothiazide 25 mg tablet RxNorm: 607477 1 Tablet(s) Oral every day 10/17/19 20 2019 Inactive Alcohol Prep Pads RxNorm: 093491 1 Patch TOP QAM 10/16/192020 Inactive loperamide 2 mg tablet RxNorm: 815369 1 Tablet(s) Oral as needed take one [...] 2019 Inactive hydrochlorothiazide 25 mg tablet RxNorm: 262530 1 Tablet(s) Oral every day 09/19/20 19 2019 Inactive Sudafed 12 Hour 120 mg tablet,extended release RxNorm: 8444921 1 Tablet(s) Oral every 12 hours as needed 09/11/20 19 2018 Inactive omeprazole 20 mg capsule,delayed release RxNorm: 191693 1 Capsule(s) Oral every day 09/07/20 19 2019 Inactive Sudafed 12 Hour 120 mg tablet,extended release RxNorm: 3856636 1 Tablet(s) Oral every 12 hours as needed 09/04/20 19 2018 Inactive pantoprazole 40 mg tablet,delayed release RxNorm: 613485 1 Tablet(s) Oral every day 08/24/20 19 2018 Inactive discontinue any other H2Blkr. and PPI albuterol sulfate 2.5 mg/3 mL (0.083 %) solution for nebulization RxNorm: 311721 1 Vial Inhalation every four hours as needed as needed for dyspnea 08/17/20 19 2019 Inactive 60/box. This refill negates all other refills of this medication. Please do not fill early. Please do not auto refill. Symbicort 160 mcg-4.5 mcg/actuation HFA aerosol inhaler RxNorm: 8361469 2 Puff(s) INH BID 08/17/20 19 No Stop Date Active Alcohol Prep Pads RxNorm: 826746 1 Patch TOP QAM 08/17/20 19 2019 Inactive Ventolin HFA 90 mcg/actuation aerosol inhaler RxNorm: 312604 2 Puff(s) INH QID 08/09/20 19 2019 Inactive Please do not fill early. Please do not auto refill. This refill negates all other refills of this medication True Metrix Glucose Test Strip RxNorm: 1 Test Strips Miscellaneous QAM 08/09/20 19 2019 Inactive 100/container atorvastatin 40 mg tablet RxNorm: 242457 1 Tablet(s) Oral every day 07/04/20 19 2019 Inactive levmetamfetamine 50 mg nasal inhaler RxNorm: 1 Unit(s) NASAL Q3-4H Do not use more than every 3 hours or 8 times/24hours 06/26/20 19 2021 Inactive Please do not auto refill. This refill negates all other refills of this medication buspirone 7.5 mg tablet RxNorm: 046373 1 Tablet(s) PO BID 06/26/20 19 2020 Inactive This refill negates all other refills of this medication hydrochlorothiazide 12.5 mg tablet RxNorm: 276165 1 Tablet(s) PO QAM 06/26/20 19 2019 Inactive Ventolin HFA 90 mcg/actuation aerosol inhaler RxNorm: 445177 2 Puff(s) INH QID 06/26/20 19 2018 Inactive Please do not fill early. Please do not auto refill. This refill negates all other refills of this medication Singulair 10 mg tablet RxNorm: 080129 1 Tablet(s) PO daily 06/26/20 19 2019 Inactive This refill negates all other refills of this medication cetirizine 10 mg tablet RxNorm: 4584063 1 Tablet(s) PO daily 06/26/20 19 2019 Inactive This refill negates all other refills of this medication. Please do not auto refill levothyroxine 50 mcg tablet RxNorm: 355391 1 Tablet(s) PO daily 06/26/20 19 2019 Inactive This refill negates all other refills of this medication diclofenac sodium 75 mg tablet,delayed release RxNorm: 767985 1 Tablet(s) PO BID 06/26/20 19 2019 Inactive This refill negates all other refills of this medication ranitidine 150 mg tablet RxNorm: 565786 1 Tablet(s) PO BID 09/24/2018 Inactive This refill negates all other refills of this medication Calcium 600-D3 Plus (mag-zinc) 600 mg calcium-800 unit-50 mg tablet RxNorm: 1 Tablet(s) PO daily take an additonal tablet for itching. 06/26/20 19 2018 Inactive This refill negates all other refills of this medication albuterol sulfate 2.5 mg/3 mL (0.083 %) solution for nebulization RxNorm: 801039 1 Vial INH QID 06/26/20 19 2018 Inactive 60/box. This refill negates all other refills of this medication. Please do not fill early. Please do not auto refill. lisinopril 2.5 mg tablet RxNorm: 733650 1 Tablet(s) PO daily 06/21/20 19 2019 Inactive gabapentin 300 mg capsule RxNorm: 820118 1 Capsule(s) PO TID 06/21/20 19 2019 Inactive atorvastatin 20 mg tablet RxNorm: 629639 1 Tablet(s) PO QHS 06/07/20 19 2018 Inactive This refill negates all other refills of this medication TRUEplus Lancets 30 gauge RxNorm: 1 Lancets Miscellaneous QAM 05/29/20 19 2018 Inactive 100/box gabapentin 300 mg capsule RxNorm: 952644 1 Capsule(s) PO TID 05/03/20 19 2018 Inactive Flintstones Complete (iron) 18 mg iron chewable tablet RxNorm: 1 Tablet(s) PO daily 04/04/202021 Inactive This refill negates all other refills of this medication gabapentin 300 mg capsule RxNorm: 925076 1 Capsule(s) PO TID as needed 02/01/20 19 2018 Inactive True Metrix Glucose Test Strip RxNorm: 1 Test Strips Miscellaneous QAM 02/01/20 19 2018 Inactive 100/container Alcohol Prep Pads RxNorm: 311865 1 Patch TOP QAM 02/01/20 19 2018 Inactive TRUEplus Lancets 30 gauge RxNorm: 1 Lancets Miscellaneous QAM 02/01/20 2018 Inactive 100/box lisinopril 2.5 mg tablet RxNorm: 223429 1 Tablet(s) PO daily 12/28/192018 Inactive ranitidine 150 mg tablet RxNorm: 916237 1 Tablet(s) PO BID 10/21/192018 Inactive This refill negates all other refills of this medication albuterol sulfate 2.5 mg/3 mL (0.083 %) solution for nebulization RxNorm: 677934 1 Vial INH QID 10/21/192018 Inactive 60/box. [...] this medication gabapentin 300 mg capsule RxNorm: 427375 1 Capsule(s) PO TID as needed 10/21/192018 Inactive atorvastatin 20 mg tablet RxNorm: 660595 1 Tablet(s) PO QHS 10/21/192018 Inactive This refill negates all other refills of this medication trazodone 50 mg tablet RxNorm: 342702 1 Tablet(s) PO QHS 10/21/192018 Inactive This refill negates all other refills of this medication Ventolin HFA 90 mcg/actuation aerosol inhaler RxNorm: 952649 2 Puff(s) INH QID 10/21/192018 Inactive Please do not fill early. Please do not auto refill. This refill negates all other refills of this medication Calcium 600-D3 Plus 600 mg calcium-800 unit-50 mg tablet RxNorm: 1 Tablet(s) PO daily take an additonal tablet for itching. 10/21/192018 Inactive This refill negates all other refills of this medication Singulair 10 mg tablet RxNorm: 035906 1 Tablet(s) PO daily 10/21/192018 Inactive This refill negates all other refills of this medication buspirone 7.5 mg tablet RxNorm: 429759 1 Tablet(s) PO BID 10/21/19 19 2018 Inactive This refill negates all other refills of this medication diclofenac sodium 75 mg tablet,delayed release RxNorm: 954751 1 Tablet(s) PO BID 10/21/19 19 2018 Inactive This refill negates all other refills of this medication hydrochlorothiazide 12.5 mg tablet RxNorm: 646195 1 Tablet(s) PO QAM 10/21/19 19 2018 Inactive metoprolol succinate ER 50 mg tablet,extended release 24 hr RxNorm: 537600 1 Tablet(s) PO daily 10/21/19 19 2018 Inactive This refill negates all other refills of this medication levothyroxine 50 mcg tablet RxNorm: 247365 1 Tablet(s) PO daily 10/21/192018 Inactive This refill negates all other refills of this medication cetirizine 10 mg tablet RxNorm: 0424593 1 Tablet(s) PO daily 10/21/19 19 2018 Inactive This refill negates all other refills of this medication. Please do not auto refill Flintstones Complete (iron) 18 mg iron chewable tablet RxNorm: 1 Tablet(s) PO daily 10/21/192018 Inactive This refill negates all other refills of this medication buspirone 7.5 mg tablet RxNorm: 175410 1 Tablet(s) PO BID 10/12/192018 Inactive cetirizine 10 mg tablet RxNorm: 6013489 1 Tablet(s) PO daily 09/28/202018 Inactive Guaiasorb DM 10 mg-100 mg/5 mL oral liquid RxNorm: 348095 10 Milliliter(s) PO As needed every 4 hr 09/24/202018 Inactive Vicks Vaporub 4.7 %-1.2 %-2.6 % topical ointment RxNorm: 2964277 1 Application TOP TID 09/24/20 18 2018 Inactive levmetamfetamine 50 mg nasal inhaler RxNorm: 1 Unit(s) NASAL Q3-4H 09/24/20 18 2017 Inactive sertraline 50 mg tablet RxNorm: 625542 1 Tablet(s) PO daily 09/09/20 18 2018 Inactive Please note dose trazodone 50 mg tablet RxNorm: 254283 1 Tablet(s) PO QHS 09/06/20 18 2018 Inactive sertraline 50 mg tablet RxNorm: 320727 1 Tablet(s) PO daily 09/06/20 18 2017 Inactive amoxicillin 500 mg tablet RxNorm: 605651 1 Tablet(s) PO Q12H 08/31/20 18 2017 Inactive albuterol sulfate 2.5 mg/3 mL (0.083 %) solution for nebulization RxNorm: 326115 1 Vial INH QID 08/10/20 18 2018 Inactive 60/box. Please do not fill early. Please do not auto refill. Prozac 10 mg capsule RxNorm: 957915 1 Capsule(s) PO daily 08/09/20 18 2017 Inactive buspirone 7.5 mg tablet RxNorm: 072253 1 Tablet(s) PO BID 08/09/20 18 2018 Inactive gabapentin 300 mg capsule RxNorm: 776348 1 Capsule(s) PO TID as needed 08/01/20 18 2018 Inactive hydrochlorothiazide 12.5 mg tablet RxNorm: 299389 1 Tablet(s) PO QAM 08/01/20 18 2018 Inactive ranitidine 150 mg tablet RxNorm: 566206 1 Tablet(s) PO BID 08/01/20 18 2018 Inactive Macrobid 100 mg capsule RxNorm: 583115 1 Capsule(s) PO Q12H 06/21/20 18 2017 Inactive Singulair 10 mg tablet RxNorm: 688341 1 Tablet(s) PO daily 06/14/20 18 2018 Inactive Ventolin HFA 90 mcg/actuation aerosol inhaler RxNorm: 9715562 2 Puff(s) INH QID 06/14/20 18 2018 Inactive Singulair 10 mg tablet RxNorm: 591452 1 Tablet(s) PO daily 06/14/20 18 2017 Inactive buspirone 7.5 mg tablet RxNorm: 132598 1 Tablet(s) PO BID 06/14/20 18 2017 Inactive Prozac 10 mg capsule RxNorm: 497989 1 Capsule(s) PO daily 06/14/20 18 2017 Inactive Neilmed Pediatric Sinus Rinse Refill packet RxNorm: 1 Unit Dose NASAL PRN 05/31/20 18 2021 Inactive diclofenac sodium 75 mg tablet,delayed release RxNorm: 278748 1 Tablet(s) PO BID 05/31/20 18 2017 Inactive lisinopril 2.5 mg tablet RxNorm: 374424 1 Tablet(s) PO daily 05/31/20 18 2017 Inactive metoprolol succinate ER 50 mg tablet,extended release 24 hr RxNorm: 210992 1 Tablet(s) PO daily 05/31/20 18 2017 Inactive levothyroxine 50 mcg tablet RxNorm: 663130 1 Tablet(s) PO daily 05/31/20 18 2017 Inactive TRUEplus Lancets 30 gauge RxNorm: 1 Lancets Miscellaneous QAM 05/31/20 18 2017 Inactive 100/box Ventolin HFA 90 mcg/actuation aerosol inhaler RxNorm: 990768 2 Puff(s) INH QID 05/31/20 18 2017 Inactive Aleve 220 mg capsule RxNorm: 6007532 1 Capsule(s) PO BID 05/31/20 18 2018 Inactive ranitidine 150 mg tablet RxNorm: 607731 1 Tablet(s) PO BID 05/31/20 18 2017 Inactive gabapentin 300 mg capsule RxNorm: 216002 1 Capsule(s) PO TID as needed 05/31/20 18 2017 Inactive atorvastatin 20 mg tablet RxNorm: 577121 1 Tablet(s) PO QHS 05/31/20 18 2017 Inactive True Metrix Glucose Test Strip RxNorm: 1 Test Strips Miscellaneous QAM 05/31/20 18 2017 Inactive 50/container Calcium 600-D3 Plus 600 mg calcium-800 unit-50 mg tablet RxNorm: 1 Tablet(s) PO daily take an additonal tablet for itching. 05/31/20 18 2017 Inactive hydrochlorothiazide 12.5 mg tablet RxNorm: 737194 1 Tablet(s) PO QAM 05/31/20 18 2017 Inactive Flintstones Complete (iron) 18 mg iron chewable tablet RxNorm: 1 Tablet(s) PO daily 05/31/20 18 2017 Inactive d-mannose oral powder RxNorm: PO 18 2021 Inactive True Metrix Glucose Meter RxNorm: miscellaneous 08/17/20 19 2018 Inactive sertraline 50 mg tablet RxNorm: 882471 1 Tablet(s) PO daily 11/28/19 20 2019 Inactive loperamide 2 mg tablet RxNorm: 226917 oral 09/29/20 19 2018 Inactive Symbicort 160 mcg-4.5 mcg/actuation HFA aerosol inhaler RxNorm: 8734928 2 Puff(s) INH BID 08/17/20 19 2018 Inactive Medication Administered No Medication Administered data Procedures Procedure Codes Date Frailty Screening CPT-4: SFD 05/20/2021 Hypertension CPT-4: HTN 04/01/2021 Tobacco Assessment/Screening CPT-4: TCA 08/2021 Patient Health Questionnaire CPT-4: DPHQ 08/2021 Mini Mental State Exam CPT-4: DMMA Annual Wellness Visit (Subsequent Visit) CPT-4: G0439 01/13/2021 Advanced Care Planning CPT-4: VACP Fall Risk Assessment SNOMED CT: 72709422 4 CPT-4: DFRA 01/13/2021 [place] F[place] Assessment CPT-4: DSWA 12/01 Urinalysis, dip stick CPT-4: 42074 09/24/2020 Patient Health Questionnaire CPT-4: DPHQ Electrocardiogram CPT-4: 74077 05/14/2020 Tobacco Assessment/Screening CPT-4: TCA Fall Risk Assessment SNOMED CT: 41246671 4 CPT-4: DFRA 01/01/2020 Functional Assessment CPT-4: DFA 01/01/2020 [place] Fany Assessment CPT-4: DSWA 11/04 Patient Health Questionnaire CPT-4: DPHQ [place] F[place] Assessment CPT-4: DSWA 10/03 Hypertension CPT-4: HTN 10/17/2019 Fall Risk Assessment SNOMED CT: 41522609 4 CPT-4: DFRA 09/19/2019 Functional Assessment CPT-4: DFA 09/19/2019 Urinalysis, dip stick CPT-4: 84241 06/21/2019 Tobacco Assessment/Screening CPT-4: TCA Patient Health Questionnaire CPT-4: DPHQ AHA/REBECCA Classification Assessment CPT-4: DAHA 04/25/2019 Controlled Substance Report CPT-4: CTRSU 04/03 Urinalysis, dip stick CPT-4: 31507 03/28/2019 Urinalysis, dip stick CPT-4: 99824 03/28/2019 J6A-Ltriivpckyeshdc CPT-4: 40863 Unknown K5G-Nflkuusmaulkzgr CPT-4: 54638 Unknown I6B-Dvzajhsnonkxavf CPT-4: 65420 Unknown P2H-Wabhdbfvfqjzjnd CPT-4: 77256 Unknown B6A-Rpfldxhfailqfls CPT-4: 85144 Unknown G3A-Qbewnzfppzsyelg CPT-4: 95362 Unknown G6R-Vtzvmgrgohtlwws CPT-4: 32426 Unknown Gynecology Referral SNOMED CT: 249061431 CPT-4: R14 Unknown Reason For Visit No Reason For Visit data Encounters Encounter Performer Location Location Address Codes Magdi e ([id number]) Other Reason/Patient not seen Diagnosis: Patient not seen[ICD10: UXZ.01] Chivo Bishop [place] [facility] [address] [place] [id number] CPT-4: 85630 09/10/2021 Plan of Care Planned Activity Notes Codes Status Date Patient Education: Patient Medication Summary Completed 09/10/2021 Appointment: Chivo Bishop WPtel: [address] [place], [place] [id number] ETV 08/13/2021 Appointment: Chivo Bishop WPtel: [phone] [place] [address] ETV 07/06/2021 Appointment: Chivo Bishop WPtel: [address] [place] [address] PHTV 06/10/2021 Appointment: Anna Culver WPtel: [address] [place] [address] ETV 06/02/2021 Appointment: Chivo Bishop WPtel: [address] [place] [address] ETV 05/20/2021 Appointment: Anna Culver WPtel: [address] [place] [address] ETV 04/28/2021 Appointment: Chivo Bishop WPtel: [address] [place] [address] ETV 04/15/2021 Appointment: Anna Culver WPtel: [address] [place] [address] E410 04/01/2021 Appointment: Anna Culver WPtel: [address] [place] [address] ETV 03/24/2021 Appointment: Anna Culver WPtel: [address] [place] [address] ETV 03/13/2021 Appointment: Anna Culver WPtel: [address] [place] [address] E410 02/11/2021 Appointment: Chivo Bishop WPtel: [address] [place] [address] E410 01/29/2021 Appointment: Anna Culver WPtel: [address] [place] [address] ETV 01/13/2021 Appointment: Anna Culver WPtel: [id number] [place] [address] [place] E410 12/17/2020 Appointment: Chivo Bishop WPtel: [address] [place] [address] ETV 11/28/2020 Appointment: Anna Culver WPtel: [address] [place] [address] [place] ETV 11/24/2020 Appointment: Anna Culver WPtel: [address] [place] [address] [place] E410 10/29/2020 Appointment: Anna Culver WPtel: [address] [place] [address] E410 09/24/2020 Appointment: Anna Culver WPtel: [address] [place] [address] ETV 08/26/2020 Appointment: Anna Culver WPtel: [address] [place] [address] ETV 08/19/2020 Appointment: Anna Culver WPtel: [address] [place] [address] ETV 07/22/2020 Appointment: Anna Culver WPtel: [address] [place] [address] [place] ETV 07/08/2020 Appointment: Gianna Birmingham: [address] [facility] [address] [id number] [place] ECHO 07/02/2020 Appointment: Anna Culver WPtel: [address] [place] [address] E452 06/11/2020 Appointment: Anna Culver WPtel: [address] [place] [address] E452 05/14/2020 Appointment: Anna Culver WPtel: [address] E452 04/17/2020 Appointment: Anna Culver WPtel: [id number] [place] [address] E452 03/21/2020 Appointment: Anna Culver WPtel: [id number] [place] [address] E452 02/14/2020 Appointment: Anna Culver WPtel: [id number] [place] [address] E452 01/24/2020 Appointment: Anna Culver WPtel: [address] [place] [address] E452 01/01/2020 Appointment: Anna Culver WPtel: [address] [place] [address] E452 11/28/2019 Appointment: Anna Culver WPtel: [address] [place] [address] E452 10/17/2019 Appointment: Anna Culver WPtel: [address] [place] [address] E452 09/19/2019 Appointment: Sudha Hrenadez WPtel: [address] [facility] [id number] E452 07/04/2019 Appointment: Sudha Hernadez WPtel: [address] [facility] [id number] E452 06/21/2019 Appointment: Charlene Oropeza WPtel: [address] [facility] [id number] E452 05/24/2019 Appointment: Mallory Delgado E452 04/27/2019 Appointment: Charlene Oropeza WPtel: [address] [facility] [id number] E452 04/25/2019 Appointment: Rasta Palafox WPtel: [address] [facility] 202b [id number] E452 03/28/2019 Appointment: Rasta Palafox WPtel: [address] [facility] 202b [id number] E452 02/14/2019 Appointment: Rasta Palafox WPtel: [address] [facility] b [id number] E452 01/31/2019 Appointment: Rasta Palafox WPtel: [address] [facility] b [id number] E420 12/27/2018 Referral: Pending Gynecology Referral Information Referral Processed Referral: Pending Pulmonolog y Referral Information Referral Processed Referral: Pending Psychiatry Referral Information Referral Initiated Referral: Pending Respirator y Services Referral Information Referral Initiated Referral: Pending Ophthalmology Referral Information Referral Initiated Referral: [facility] WPtel: [address] [place] [address] [employer] placed a call out to the patient to notify her that it has been recommended that she be seen by 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 Patient agreed to be seen, does not have a provider of choice and no transportation issues. [employer] faxed referral and clinical notes to [facility] in [place], [place] near the patient's home. Patient to [...] seen and prefers a provider in the [place] or [place] area. [employer] placed a call out to everyone listed in the area and the only location that was able to accept the patient's insurance was [place] [address] [place] [address] and spoke with Maylin. Maylin asked that the patient's referral, face sheet and visit notes be faxed to . [employer] faxed over requested documents. Patient appointment confirmation letter generated and mailed to her home address. Patient to call to schedule an appointment. Processed Referral: Kathryn Angeles y WPtel: [address] [place] [address] [place], [place] [id number] Patient notified that it has been advised that she be seen by Neurology. Patient agreed to be seen and prefers to be seen by a provider in the [place], [place] area. Patient denies any concerns with transportation, and prefers to schedule her own appointment. [employer] placed a call out to [facility] and spoke with Neeraj Mcfarland: who confirmed that their office is able to accept new patients and the patient's insurance. After confirming the providers fax number, rewriter faxed over the patient's referral, and most [...]
--- OUTSIDE RECORDS SUMMARY | 2021-09-10 20:00 | XMS_ITS | CCD ---
Author Name Chivo Bishop NP Address [address] [place] [address] Phone Organization [facility] Phone Care Team Providers Care Terrazzo Grinder Name Role Phone Palomo KING, Anna Primary Care Provider Unav ailable Unavailable Chronic Care Management Unavaila ble Summary Purpose DataExchange Insurance Providers Payer name Policy type / Coverage type Covered democrat ID Effective Begin Date Effective End Date SUKI MAYO [id number] Unknown Unknown Family history Mother Diagnosis Age [...] Unknown Disability 05/31/[address]: 235100933 Has never s moked or chewed tobacco 05/31/[address]: 424995511 Never drinks alco hol 05/31/2018 Has the patient ever used illegal drugs? Unknown Has never used illegal drugs 05/31/2018 DNR Order/ Advanced Directive Unknown Full Code 05/31/2018 Allergies, Adverse Reactions, Alerts Substance Reaction Codes Entered Date Inactivated Date Status OxyContin itch, RxNorm: 655964 01/13/2021 No Inactive Da te Active *No known food allergies Unknown 09/06/2018 No I nactive Date Active Methylprednisolone hives RxNorm: 6902 09/06/2018 No Inac tive Date Active Problems Condition Codes Effective Dates Condition St atus Type 2 diabetes mellitus wit h peripheral neuropathy ICD-10: E11.42 ICD-9: 250.60 11/28/2019 Active Patient not seen ICD-10: UXZ.01 ICD-9: UXZ.01 09/10/2021 Active Diarrhea ICD-10: R19.7 ICD-9: 787.91 08/13/2021 Active GERD (gastroesophageal reflu x disease) ICD-10: K21.9 ICD-9: 530.81 09/07/2019 Active Hyperlipidemia, unspecified ICD-10: E78. 5 ICD-9: 272.4 05/30/2018 Active Dyspnea, unspecified ICD-10: R06.00 ICD-9: [...] ICD-10: R51 ICD-9: 784.0 10/03/2018 Inactive Other ocean transportation intermediary (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 ICD-10: Z79.899 ICD-9: V58.69 04/25/2019 Inactive Type 2 diabetes mellitus wit hout complications ICD-10: E11.9 ICD-9: 250.00 10/03/2018 Inactive Wheezing ICD-10: R06.2 ICD-9: 786.07 08/08/2018 Inactive Abnormal urine finding ICD-10: R82.90 ICD-9: 791.9 09/24/2020 Resolved Abrasion of toe ICD-10: S90.416A ICD-9: 917.0 02/14/2020 Resolved [place] eye ICD-10: H10.029 ICD-9: 372.03 12/29/2019 Resolved [...] (2 mg/1.5 mL) subcutaneous pen injector RxNorm: 5051455 Take 0.25 Milligram(s) Subcutaneous once a week 09/11/20 21 2021 Inactive Easy Touch Alcohol Prep Pads RxNorm: 628191 USE DIRECTED EACH MORNING 09/03/20 21 2021 Inactive Probiotic 10 billion cell capsule RxNorm: 6556260 Take 1 Capsule(s) Oral every day 08/13/20 21 2021 Inactive levothyroxine 50 mcg tablet RxNorm: 844725 Take 1 Tablet(s) Oral every day 08/13/20 21 2020 Inactive Acid Channel Man (famotidine) 20 mg tablet RxNorm: 227097 Take 1 Tablet(s) Oral every morning 08/13/20 21 2020 Inactive Heartburn Relief (famotidine) 10 mg tablet RxNorm: 555534 Take 1 Tablet(s) Oral QAM 08/07/20 21 2020 Inactive levothyroxine 50 mcg tablet RxNorm: 783648 Take 1 Tablet(s) Oral QD 08/07/20 21 2020 Inactive metformin 1,000 mg tablet RxNorm: 678987 1 Tablet(s) Oral two times a day 07/16/20 21 2021 Inactive Singulair 10 mg tablet RxNorm: 653710 TAKE (1) TABLET BY MOUTH DAILY 07/16/20 21 2020 Inactive lisinopril 2.5 mg tablet RxNorm: 283581 Take 1 Tablet(s) Oral every day 07/11/20 21 2020 Inactive hydrochlorothiazide 25 mg tablet RxNorm: 406878 Take 1 Tablet(s) Oral every day 06/12/20 21 2020 Inactive ondansetron 4 mg disintegrating tablet RxNorm: 299814 1 Tablet(s) Oral two times a day 06/10/20 21 2020 Inactive Sudafed 12 Hour 120 mg tablet,extended release RxNorm: 4931845 TAKE 1 TABLET BY MOUTH EVERY 12 HOURS NEEDED 06/01/20 21 2021 Inactive Heartburn Relief (famotidine) 10 mg tablet RxNorm: 938879 Take 1 Tablet(s) Oral every morning 05/07/20 21 2020 Inactive omeprazole 20 mg capsule,delayed release RxNorm: 812688 1 Capsule(s) Oral every evening 04/03/20 21 2020 Inactive sertraline 100 mg tablet RxNorm: 300458 2 Tablet(s) Oral every day 03/13/20 21 2020 Inactive levothyroxine 50 mcg tablet RxNorm: 153570 TAKE (1) TABLET BY MOUTH DAILY 02/04/20 21 2020 Inactive metformin 500 mg tablet RxNorm: 271412 1 Tablet(s) Oral two times a day take with 500mg to equal 1000mg 01/14/20 21 2020 Inactive gabapentin 300 mg capsule RxNorm: 650276 TAKE 1 CAPSULE BY MOUTH THREE TIMES A DAY 01/14/20 21 2020 Inactive lisinopril 2.5 mg tablet RxNorm: 121447 TAKE 1 TABLET BY MOUTH DAILY 01/06/20 21 2020 Inactive gabapentin 300 mg capsule RxNorm: 913239 TAKE 1 CAPSULE BY MOUTH THREE TIMES A DAY 01/06/20 21 2020 Inactive Singulair 10 mg tablet RxNorm: 308802 TAKE (1) TABLET BY MOUTH DAILY 01/06/20 21 2020 Inactive metformin 1,000 mg tablet RxNorm: 000640 1 Tablet(s) Oral two times a day 01/06/20 21 2020 Inactive atorvastatin 40 mg tablet RxNorm: 263588 1 Tablet(s) Oral every day 12/06/19 21 2020 Inactive omeprazole 20 mg capsule,delayed release RxNorm: 578566 1 Capsule(s) Oral every evening 11/24/19 21 2020 Inactive famotidine 10 mg tablet RxNorm: 984725 1 Tablet(s) Oral every morning 11/24/19 21 2020 Inactive Alcohol Prep Pads RxNorm: 153489 USE EACH MORNING 10/14/19 21 2020 Inactive omeprazole 20 mg capsule,delayed release RxNorm: 304786 1 Capsule(s) Oral two times a day 10/13/19 21 2021 Inactive omeprazole 20 mg capsule,delayed release RxNorm: 871649 TAKE 1 CAPSULE BY MOUTH EVERY DAY 10/08/19 21 2021 Inactive Macrobid 100 mg capsule RxNorm: 940873 1 Capsule(s) Oral every 12 hours with food 10/01/20 20 2020 Inactive omeprazole 20 mg capsule,delayed release RxNorm: 076566 1 Capsule(s) Oral two times a day 09/24/20 20 2021 Inactive metformin 1,000 mg tablet RxNorm: 043796 1 Tablet(s) Oral two times a day 08/19/20 20 2020 Inactive start on September 11, 2020 metformin 500 mg tablet RxNorm: 162105 1 Tablet(s) Oral two times a day take with 500mg to equal 1000mg 08/19/20 20 2019 Inactive gabapentin 300 mg capsule RxNorm: 537748 TAKE 1 CAPSULE BY MOUTH THREE TIMES DAILY 07/11/20 20 2020 Inactive cetirizine 10 mg tablet RxNorm: 8571213 TAKE (1) TABLET BY MOUTH DAILY 07/11/20 20 2020 Inactive metformin 500 mg tablet RxNorm: 857358 1 Tablet(s) Oral two times a day 07/08/20 20 2019 Inactive loperamide 2 mg tablet RxNorm: 230773 1 Tablet(s) Oral as needed take one tablet after each loose stool, maximum of 8 tablets in 24 hours 06/24/20 20 2021 Inactive Sudafed 12 Hour 120 mg tablet,extended release RxNorm: 7124749 TAKE 1 TABLET BY MOUTH EVERY 12 HOURS NEEDED 06/11/20 20 2019 Inactive hydrochlorothiazide 25 mg tablet RxNorm: 081130 TAKE (1) TABLET BY MOUTH EVERY DAY 06/11/20 20 2019 Inactive omeprazole 20 mg capsule,delayed release RxNorm: 627155 TAKE 1 CAPSULE BY MOUTH EVERY DAY 05/14/20 20 2020 Inactive metformin 500 mg tablet RxNorm: 392649 1 Tablet(s) Oral every day 05/12/20 20 2019 Inactive True Metrix Glucose Test Strip RxNorm: 1 Test Strips Miscellaneous two times a day as needed 04/17/20 No Stop Date Active metformin 500 mg tablet RxNorm: 125698 1 Tablet(s) Oral every day 04/17/20 20 2019 Inactive diclofenac sodium 75 mg tablet,delayed release RxNorm: 660120 1 Tablet(s) PO BID 04/14/20 20 2021 Inactive This refill negates all other refills of this medication Sudafed 12 Hour 120 mg tablet,extended release RxNorm: 3262324 TAKE 1 TABLET BY MOUTH EVERY 12 HOURS NEEDED 03/14/20 20 2019 Inactive True Metrix Glucose Test Strip RxNorm: 1 Test Strips Miscellaneous every morning 03/13/20 20 2019 Inactive 100/container True Metrix Glucose Test Strip RxNorm: 1 Test Strips Miscellaneous QAM 02/22/20 20 2019 Inactive 100/container loperamide 2 mg tablet RxNorm: 914447 1 Tablet(s) Oral as needed take one tablet after each loose stool, maximum of 8 tablets in 24 hours 02/22/20 20 2019 Inactive cetirizine 10 mg tablet RxNorm: 3254760 1 Tablet(s) PO daily 01/17/20 20 2019 Inactive loperamide 2 mg tablet RxNorm: 666028 1 Tablet(s) Oral as needed take one tablet after each loose stool, maximum of 8 tablets in 24 hours 01/17/20 20 2019 Inactive quetiapine 100 mg tablet RxNorm: 331744 1 Tablet(s) Oral every night at bedtime 01/17/20 20 2019 Inactive levothyroxine 50 mcg tablet RxNorm: 073123 1 Tablet(s) PO daily 01/17/20 20 2020 Inactive gabapentin 300 mg capsule RxNorm: 089003 1 Capsule(s) PO TID 01/17/20 20 2019 Inactive levothyroxine 50 mcg tablet RxNorm: 935677 1 Tablet(s) PO daily 01/15/20 20 2019 Inactive lisinopril 2.5 mg tablet RxNorm: 183599 1 Tablet(s) PO daily 01/15/20 20 2020 Inactive gabapentin 300 mg capsule RxNorm: 308937 1 Capsule(s) PO TID 01/15/20 20 2019 Inactive cetirizine 10 mg tablet RxNorm: 9497701 1 Tablet(s) PO daily 01/15/20 20 2019 Inactive Singulair 10 mg tablet RxNorm: 393720 1 Tablet(s) PO daily 01/15/20 20 2020 Inactive gentamicin 0.3 % eye drops RxNorm: 642709 1 Drop(s) ophthalmic (eye) four times a day 12/29/19 20 2019 Inactive gentamicin 0.3 % eye drops RxNorm: 754812 1 Drop(s) ophthalmic (eye) four times a day 12/29/19 20 2019 Inactive gentamicin 0.3 % eye drops RxNorm: 445316 1 Drop(s) ophthalmic (eye) four times a day 12/29/19 20 2019 Inactive hydrochlorothiazide 25 mg tablet RxNorm: 214900 1 Tablet(s) Oral every day 12/21/19 20 2019 Inactive Sudafed 12 Hour 120 mg tablet,extended release RxNorm: 1433349 TAKE (1) TABLET BY MOUTH EVERY 12 HOURS NEEDED 12/21/19 20 2019 Inactive loperamide 2 mg tablet RxNorm: 273640 1 Tablet(s) Oral as needed take one tablet after each loose stool, maximum of 8 tablets in 24 hours 12/11/19 20 2019 Inactive loperamide 2 mg tablet RxNorm: 821361 1 Tablet(s) Oral as needed take one tablet after each loose stool, maximum of 8 tablets in 24 hours 12/11/19 20 2019 Inactive atorvastatin 40 mg tablet RxNorm: 136933 1 Tablet(s) Oral every day 11/29/19 20 2020 Inactive quetiapine 100 mg tablet RxNorm: 742172 1 Tablet(s) Oral every night at bedtime 11/28/19 20 2019 Inactive sertraline 100 mg tablet RxNorm: 218716 1 Tablet(s) Oral 11/28/19 20 2019 Inactive omeprazole 20 mg capsule,delayed release RxNorm: 407282 1 Capsule(s) Oral every day 11/20/19 20 2019 Inactive amoxicillin 250 mg capsule RxNorm: 111309 1 Capsule(s) Oral three times a day 11/07/19 20 2019 Inactive multivitamin with iron-mineral tablet RxNorm: 1 Tablet(s) Oral every day 10/29/19 20 2021 Inactive cetirizine 10 mg tablet RxNorm: 5398019 1 Tablet(s) PO daily 10/20/19 20 2019 Inactive This refill negates all other refills of this medication. Please do not auto refill Singulair 10 mg tablet RxNorm: 889273 1 Tablet(s) PO daily 10/20/19 20 2019 Inactive This refill negates all other refills of this medication gabapentin 300 mg capsule RxNorm: 499797 1 Capsule(s) PO TID 10/20/19 20 2019 Inactive lisinopril 2.5 mg tablet RxNorm: 877307 1 Tablet(s) PO daily 10/20/19 20 2019 Inactive levothyroxine 50 mcg tablet RxNorm: 227722 1 Tablet(s) PO daily 10/20/19 20 2019 Inactive This refill negates all other refills of this medication fenugreek seed extract 500 mg capsule RxNorm: 1 Capsule(s) Oral three times a day 10/17/19 20 2021 Inactive hydrochlorothiazide 25 mg tablet RxNorm: 678905 1 Tablet(s) Oral every day 10/17/19 20 2019 Inactive Alcohol Prep Pads RxNorm: 930686 1 Patch TOP QAM 10/16/19 20 2020 Inactive loperamide 2 mg tablet RxNorm: 499444 1 Tablet(s) Oral as needed take one tablet after each loose stool not to exceed 8 tablets a day 12/28/20 19 2018 Inactive Calcium 600-D3 Plus (mag-zinc) [...] 2019 Inactive hydrochlorothiazide 25 mg tablet RxNorm: 486644 1 Tablet(s) Oral every day 09/19/20 19 2019 Inactive Sudafed 12 Hour 120 mg tablet,extended release RxNorm: 0110959 1 Tablet(s) Oral every 12 hours as needed 09/11/20 19 2018 Inactive omeprazole 20 mg capsule,delayed release RxNorm: 537331 1 Capsule(s) Oral every day 09/07/20 19 2019 Inactive Sudafed 12 Hour 120 mg tablet,extended release RxNorm: 6967846 1 Tablet(s) Oral every 12 hours as needed 09/04/20 19 2018 Inactive pantoprazole 40 mg tablet,delayed release RxNorm: 440770 1 Tablet(s) Oral every day 08/24/20 19 2018 Inactive discontinue any other H2Blkr. and PPI albuterol sulfate 2.5 mg/3 mL (0.083 %) solution for nebulization RxNorm: 189837 1 Vial Inhalation every four hours as needed as needed for dyspnea 08/17/20 19 2019 Inactive 60/box. This refill negates all other refills of this medication. Please do not fill early. Please do not auto refill. Symbicort 160 mcg-4.5 mcg/actuation HFA aerosol inhaler RxNorm: 6920554 2 Puff(s) INH BID 08/17/20 No Stop Date Active Alcohol Prep Pads RxNorm: 184213 1 Patch TOP QAM 08/17/20 19 2019 Inactive Ventolin HFA 90 mcg/actuation aerosol inhaler RxNorm: 353637 2 Puff(s) INH QID 08/09/20 19 2019 Inactive Please do not fill early. Please do not auto refill. This refill negates all other refills of this medication True Metrix Glucose Test Strip RxNorm: 1 Test Strips Miscellaneous QAM 08/09/20 19 2019 Inactive 100/container atorvastatin 40 mg tablet RxNorm: 445861 1 Tablet(s) Oral every day 07/04/20 19 2019 Inactive levmetamfetamine 50 mg nasal inhaler RxNorm: 1 Unit(s) NASAL Q3-4H Do not use more than every 3 hours or 8 times/24hours 06/26/20 19 2021 Inactive Please do not auto refill. This refill negates all other refills of this medication buspirone 7.5 mg tablet RxNorm: 013068 1 Tablet(s) PO BID 06/26/20 19 2020 Inactive This refill negates all other refills of this medication hydrochlorothiazide 12.5 mg tablet RxNorm: 301126 1 Tablet(s) PO QAM 06/26/20 19 2019 Inactive Ventolin HFA 90 mcg/actuation aerosol inhaler RxNorm: 096858 2 Puff(s) INH QID 06/26/20 19 2018 Inactive Please do not fill early. Please do not auto refill. This refill negates all other refills of this medication Singulair 10 mg tablet RxNorm: 391357 1 Tablet(s) PO daily 06/26/20 19 2019 Inactive This refill negates all other refills of this medication cetirizine 10 mg tablet RxNorm: 6243540 1 Tablet(s) PO daily 06/26/20 19 2019 Inactive This refill negates all other refills of this medication. Please do not auto refill levothyroxine 50 mcg tablet RxNorm: 331021 1 Tablet(s) PO daily 06/26/20 19 2019 Inactive This refill negates all other refills of this medication diclofenac sodium 75 mg tablet,delayed release RxNorm: 452311 1 Tablet(s) PO BID 06/26/20 19 2019 Inactive This refill negates all other refills of this medication ranitidine 150 mg tablet RxNorm: 093431 1 Tablet(s) PO BID 06/26/20 19 2018 Inactive This refill negates all other refills of this medication Calcium 600-D3 Plus (mag-zinc) 600 mg calcium-800 unit-50 mg tablet RxNorm: 1 Tablet(s) PO daily take an additonal tablet for itching. 06/26/20 19 2018 Inactive This refill negates all other refills of this medication albuterol sulfate 2.5 mg/3 mL (0.083 %) solution for nebulization RxNorm: 018219 1 Vial INH QID 06/26/20 19 2018 Inactive 60/box. This refill negates all other refills of this medication. Please do not fill early. Please do not auto refill. lisinopril 2.5 mg tablet RxNorm: 312322 1 Tablet(s) PO daily 06/21/20 19 2019 Inactive gabapentin 300 mg capsule RxNorm: 218449 1 Capsule(s) PO TID 06/21/20 19 2019 Inactive atorvastatin 20 mg tablet RxNorm: 893808 1 Tablet(s) PO QHS 06/07/20 19 2018 Inactive This refill negates all other refills of this medication TRUEplus Lancets 30 gauge RxNorm: 1 Lancets Miscellaneous QAM 05/29/20 19 2018 Inactive 100/box gabapentin 300 mg capsule RxNorm: 416380 1 Capsule(s) PO TID 05/03/20 19 2018 Inactive Flintstones Complete (iron) 18 mg iron chewable tablet RxNorm: 1 Tablet(s) PO daily 04/04/20 19 2021 Inactive This refill negates all other refills of this medication gabapentin 300 mg capsule RxNorm: 570817 1 Capsule(s) PO TID as needed 02/01/20 19 2018 Inactive True Metrix Glucose Test Strip RxNorm: 1 Test Strips Miscellaneous QAM 02/01/20 19 2018 Inactive 100/container Alcohol Prep Pads RxNorm: 145561 1 Patch TOP QAM 02/01/20 19 2018 Inactive TRUEplus Lancets 30 gauge RxNorm: 1 Lancets Miscellaneous QAM 02/01/20 19 2018 Inactive 100/box lisinopril 2.5 mg tablet RxNorm: 824276 1 Tablet(s) PO daily 12/28/19 19 2018 Inactive ranitidine 150 mg tablet RxNorm: 928157 1 Tablet(s) PO BID 10/21/19 19 2018 Inactive This refill negates all other refills of this medication albuterol sulfate 2.5 mg/3 mL (0.083 %) solution for nebulization RxNorm: 351053 1 Vial INH QID 10/21/19 19 2018 [...] this medication gabapentin 300 mg capsule RxNorm: 741821 1 Capsule(s) PO TID as needed 10/21/19 19 2018 Inactive atorvastatin 20 mg tablet RxNorm: 546379 1 Tablet(s) PO QHS 10/21/19 19 2018 Inactive This refill negates all other refills of this medication trazodone 50 mg tablet RxNorm: 239457 1 Tablet(s) PO QHS 10/21/19 19 2018 Inactive This refill negates all other refills of this medication Ventolin HFA 90 mcg/actuation aerosol inhaler RxNorm: 729961 2 Puff(s) INH QID 10/21/19 19 2018 [...] this medication Singulair 10 mg tablet RxNorm: 702425 1 Tablet(s) PO daily 10/21/19 19 2018 Inactive This refill negates all other refills of this medication buspirone 7.5 mg tablet RxNorm: 591780 1 Tablet(s) PO BID 10/21/192018 Inactive This refill negates all other refills of this medication diclofenac sodium 75 mg tablet,delayed release RxNorm: 035339 1 Tablet(s) PO BID 10/21/19 19 2018 Inactive This refill negates all other refills of this medication hydrochlorothiazide 12.5 mg tablet RxNorm: 562244 1 Tablet(s) PO QAM 10/21/19 19 2018 Inactive metoprolol succinate ER 50 mg tablet,extended release 24 hr RxNorm: 689000 1 Tablet(s) PO daily 10/21/19 19 2018 Inactive This refill negates all other refills of this medication levothyroxine 50 mcg tablet RxNorm: 050042 1 Tablet(s) PO daily 10/21/192018 Inactive This refill negates all other refills of this medication cetirizine 10 mg tablet RxNorm: 1132766 1 Tablet(s) PO daily 10/21/192018 Inactive This refill negates all other refills of this medication. Please do not auto refill Flintstones Complete (iron) 18 mg iron chewable tablet RxNorm: 1 Tablet(s) PO daily 10/21/192018 Inactive This refill negates all other refills of this medication buspirone 7.5 mg tablet RxNorm: 627576 1 Tablet(s) PO BID 10/12/192018 Inactive cetirizine 10 mg tablet RxNorm: 0047185 1 Tablet(s) PO daily 09/28/202018 Inactive Guaiasorb DM 10 mg-100 mg/5 mL oral liquid RxNorm: 290448 10 Milliliter(s) PO As needed every 4 hr 12/23/20 18 2018 Inactive Vicks Vaporub 4.7 %-1.2 %-2.6 % topical ointment RxNorm: 4053110 1 Application TOP TID 09/24/20 18 2018 Inactive levmetamfetamine 50 mg nasal inhaler RxNorm: 1 Unit(s) NASAL Q3-4H 09/24/20 18 2017 Inactive sertraline 50 mg tablet RxNorm: 327762 1 Tablet(s) PO daily 09/09/20 18 2018 Inactive Please note dose trazodone 50 mg tablet RxNorm: 285643 1 Tablet(s) PO QHS 09/06/20 18 2018 Inactive sertraline 50 mg tablet RxNorm: 195582 1 Tablet(s) PO daily 09/06/20 18 2017 Inactive amoxicillin 500 mg tablet RxNorm: 994213 1 Tablet(s) PO Q12H 08/31/20 18 2017 Inactive albuterol sulfate 2.5 mg/3 mL (0.083 %) solution for nebulization RxNorm: 972513 1 Vial INH QID 08/10/20 18 2018 Inactive 60/box. Please do not fill early. Please do not auto refill. Prozac 10 mg capsule RxNorm: 791858 1 Capsule(s) PO daily 08/09/20 18 2017 Inactive buspirone 7.5 mg tablet RxNorm: 984914 1 Tablet(s) PO BID 08/09/20 18 2018 Inactive gabapentin 300 mg capsule RxNorm: 588394 1 Capsule(s) PO TID as needed 08/01/20 18 2018 Inactive hydrochlorothiazide 12.5 mg tablet RxNorm: 119479 1 Tablet(s) PO QAM 08/01/20 18 2018 Inactive ranitidine 150 mg tablet RxNorm: 493418 1 Tablet(s) PO BID 08/01/20 18 2018 Inactive Macrobid 100 mg capsule RxNorm: 550267 1 Capsule(s) PO Q12H 06/21/20 18 2017 Inactive Singulair 10 mg tablet RxNorm: 831031 1 Tablet(s) PO daily 06/14/20 18 2018 Inactive Ventolin HFA 90 mcg/actuation aerosol inhaler RxNorm: 2273819 2 Puff(s) INH QID 06/14/20 18 2018 Inactive Singulair 10 mg tablet RxNorm: 049233 1 Tablet(s) PO daily 06/14/20 18 2017 Inactive buspirone 7.5 mg tablet RxNorm: 809307 1 Tablet(s) PO BID 06/14/20 18 2017 Inactive Prozac 10 mg capsule RxNorm: 205368 1 Capsule(s) PO daily 06/14/20 18 2017 Inactive Neilmed Pediatric Sinus Rinse Refill packet RxNorm: 1 Unit Dose NASAL PRN 05/31/20 18 2021 Inactive diclofenac sodium 75 mg tablet,delayed release RxNorm: 810888 1 Tablet(s) PO BID 05/31/20 18 2017 Inactive lisinopril 2.5 mg tablet RxNorm: 302674 1 Tablet(s) PO daily 05/31/20 18 2017 Inactive metoprolol succinate ER 50 mg tablet,extended release 24 hr RxNorm: 483550 1 Tablet(s) PO daily 05/31/20 18 2017 Inactive levothyroxine 50 mcg tablet RxNorm: 650648 1 Tablet(s) PO daily 05/31/20 18 2017 Inactive TRUEplus Lancets 30 gauge RxNorm: 1 Lancets Miscellaneous QAM 05/31/20 18 2017 Inactive 100/box Ventolin HFA 90 mcg/actuation aerosol inhaler RxNorm: 831839 2 Puff(s) INH QID 05/31/20 18 2017 Inactive Aleve 220 mg capsule RxNorm: 6442353 1 Capsule(s) PO BID 05/31/20 18 2018 Inactive ranitidine 150 mg tablet RxNorm: 596149 1 Tablet(s) PO BID 05/31/20 18 2017 Inactive gabapentin 300 mg capsule RxNorm: 925049 1 Capsule(s) PO TID as needed 05/31/20 18 2017 Inactive atorvastatin 20 mg tablet RxNorm: 535594 1 Tablet(s) PO QHS 05/31/20 18 2017 Inactive True Metrix Glucose Test Strip RxNorm: 1 Test Strips Miscellaneous QA 05/31/20 18 2017 Inactive 50/container Calcium 600-D3 Plus 600 mg calcium-800 unit-50 mg tablet RxNorm: 1 Tablet(s) PO daily take an additonal tablet for itching. 05/31/20 18 2017 Inactive hydrochlorothiazide 12.5 mg tablet RxNorm: 333134 1 Tablet(s) PO QAM 05/31/20 18 2017 Inactive Flintstones Complete (iron) 18 mg iron chewable tablet RxNorm: 1 Tablet(s) PO daily 05/31/20 18 2017 Inactive d-mannose oral powder RxNorm: PO 18 2021 Inactive True Metrix Glucose Meter RxNorm: miscellaneous 08/17/20 19 2018 Inactive sertraline 50 mg tablet RxNorm: 994514 1 Tablet(s) PO daily 11/28/19 20 2019 Inactive loperamide 2 mg tablet RxNorm: 408882 oral 09/29/20 19 2018 Inactive Symbicort 160 mcg-4.5 mcg/actuation HFA aerosol inhaler RxNorm: 7674074 2 Puff(s) INH BID 08/17/20 19 2018 Inactive Medication Administered No Medication Administered data Procedures Procedure Codes Date Frailty Screening CPT-4: SFD 05/20/2021 Hypertension CPT-4: HTN 04/01/2021 Tobacco Assessment/Screening CPT-4: TCA 08/2021 Patient Health Questionnaire CPT-4: DPHQ 08/2021 Mini Mental State Exam CPT-4: DMMA Annual Wellness Visit (Subsequent Visit) CPT-4: G0439 01/13/2021 Advanced Care Planning CPT-4: VACP Fall Risk Assessment SNOMED CT: 10882392 4 CPT-4: DFRA 01/13/2021 [place] Assessment CPT-4: DSWA 12/01 Urinalysis, dip stick CPT-4: 62295 09/24/2020 Patient Health Questionnaire CPT-4: DPHQ Electrocardiogram CPT-4: 41352 05/14/2020 Tobacco Assessment/Screening CPT-4: TCA Fall Risk Assessment SNOMED CT: 51023028 4 CPT-4: DFRA 01/01/2020 Functional Assessment CPT-4: DFA 01/01/2020 [place] Fany Assessment CPT-4: DSWA 11/04 Patient Health Questionnaire CPT-4: DPHQ [place] Fany Assessment CPT-4: DSWA 10/03 Hypertension CPT-4: HTN 10/17/2019 Fall Risk Assessment SNOMED CT: 08569446 4 CPT-4: DFRA 09/19/2019 Functional Assessment CPT-4: DFA 09/19/2019 Urinalysis, dip stick CPT-4: 58417 06/21/2019 Tobacco Assessment/Screening CPT-4: TCA Patient Health Questionnaire CPT-4: DPHQ AHA/REBECCA Classification Assessment CPT-4: DAHA 04/25/2019 Controlled Substance Report CPT-4: CTRSU 04/03 Urinalysis, dip stick CPT-4: 81299 03/28/2019 Urinalysis, dip stick CPT-4: 29411 03/28/2019 X9L-Hnmzfvmozvpfisb CPT-4: 47165 Unknown G5W-Dzwelfykvdgpeix CPT-4: 27556 Unknown S4O-Jvnvautxlomsred CPT-4: 08080 Unknown S6I-Nzxkqranjkuyxxa CPT-4: 16686 Unknown M3N-Ftiatshyajofcpv CPT-4: 92482 Unknown F0J-Cljerviqexkypdc CPT-4: 24338 Unknown M5I-Ypusnzkoefexlhn CPT-4: 83218 Unknown Gynecology Referral SNOMED CT: 495344595 CPT-4: R14 Unknown Reason For Visit No Reason For Visit data Plan of Care Planned Activity Notes Codes Status Date Patient Education: Patient Medication Summary Completed 09/11/2021 Care Plan: External Laboratory Tests Ordered 09/11/2021 Appointment: Chivo Bishop WPtel: [phone] [address] ETV 09/10/2021 Appointment: Chivo Bishop WPtel: [address] [place] [address] ETV 08/13/2021 Appointment: Chivo Bishop WPtel: [phone] [place] [address] ETV 07/06/2021 Appointment: Chivo Bishop WPtel: [address] [place] [address] PHTV 06/10/2021 Appointment: Anna Culver WPtel: [address] [place] [address] ETV 06/02/2021 Appointment: Chivo Bishop WPtel: [address] [place] [address] ETV 05/20/2021 Appointment: Anna Culver WPtel: [address] [place] [address] ETV 04/28/2021 Appointment: Chivo Bishop WPtel: [address] [place] [address] ETV 04/15/2021 Appointment: Anna Culver WPtel: [address] [place] [address] E410 04/01/2021 Appointment: Anna Culver WPtel: [address] [place] [address] ETV 03/24/2021 Appointment: Anna Culver WPtel: [address] [place] [address] ETV 03/13/2021 Appointment: Anna Culver WPtel: [address] [place] [address] E410 02/11/2021 Appointment: Chivo Bishop WPtel: [address] [place] [address] E410 01/29/2021 Appointment: Anna Culver WPtel: [id number] [place] [address] [place] ETV 01/13/2021 Appointment: Anna Culver WPtel: [id number] [place] [address] [place] E410 12/17/2020 Appointment: Chivo Bishop WPtel: [address] [place] [address] [place] ETV 11/28/2020 Appointment: Anna Culver WPtel: [address] [place] [address] [place] ETV 11/24/2020 Appointment: Anna Culver WPtel: [address] [place] [address] E410 10/29/2020 Appointment: Anna Culver WPtel: [address] [place] [address] E410 09/24/2020 Appointment: Anna Culver WPtel: [address] [place] [address] [place] ETV 08/26/2020 Appointment: Anna Culver WPtel: [address] [place] [address] [place] ETV 08/19/2020 Appointment: Anna Culver WPtel: [address] [place] [address] [place] ETV 07/22/2020 Appointment: Anna Culver WPtel: [address] [place] [address] [place] ETV 07/08/2020 Appointment: Gianna Birmingham: [address] [place] ECHO 07/02/2020 Appointment: Anna Culver WPtel: [address] [place] [address] E452 06/11/2020 Appointment: Anna Culver WPtel: [address] E452 05/14/2020 Appointment: Anna Culver WPtel: [address] [place] [address] E452 04/17/2020 Appointment: Anna Culver WPtel: [address] [place] [address] E452 03/21/2020 Appointment: Anna Culver WPtel: [address] [place] [address] E452 02/14/2020 Appointment: Anna Culver WPtel: [address] [place] [address] E452 01/24/2020 Appointment: Anna Culver WPtel: [address] [place] [address] E452 01/01/2020 Appointment: Anna Culver WPtel: [address] [place] [address] E452 11/28/2019 Appointment: Anna Culver WPtel: [address] [place] [address] E452 10/17/2019 Appointment: Anna Culver WPtel: [address] [place] [address] E452 09/19/2019 Appointment: Sudha Hernadez WPtel: [address] [facility] [id number] E452 07/04/2019 Appointment: Sudha Hernadez WPtel: [address] [facility] [id number] E452 06/21/2019 Appointment: Charlene Oropeza WPtel: [address] [facility] [id number] E452 05/24/2019 Appointment: Mallory Delgado E452 04/27/2019 Appointment: Charlene Oropeza WPtel: [address] [facility] 202[address] [id number] E452 04/25/2019 Appointment: Rasta Palafox WPtel: [address] [facility] 202[address] [id number] E452 03/28/2019 Appointment: Daltoncurt Rasta WPtel: [address] [facility] 202[address] [id number] E452 02/14/2019 Appointment: Javy Rasta WPtel: [address] [facility] 202[address] [id number] E452 01/31/2019 Appointment: JimmysenthilRasta elias WPtel: [address] [id number] E420 12/27/2018 Referral: Pending Gynecology Referral Information Referral Processed Referral: Pending Pulmonolog y Referral Information Referral Processed Referral: Pending Psychiatry Referral Information Referral Initiated Referral: Pending Respirator y Services Referral Information Referral Initiated Referral: Pending Ophthalmology Referral Information Referral Initiated [facility] W[facility]el: [address] Window Installer placed a call out to the patient to notify her that it has been recommended that she be seen by 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 Patient agreed to be seen, does not have a provider of choice and no transportation issues. Window Installer faxed referral and clinical notes to [facility] in [place], [place] near the patient's home. Patient to [...] seen and prefers a provider in the [place] [facility]. Window Installer placed a call out to everyone listed in the area and the only location that was able to accept the patient's insurance was [place] [address] [place] [address] and spoke with Maylin. Maylin asked that the patient's referral, face sheet and visit notes be faxed to . Window Installer faxed over requested documents. Patient appointment confirmation letter generated and mailed to her home address. Patient to call to schedule an appointment. Processed Referral: [facility] Neu[facility] y WPtel: [address] [place] [address] [place], [place] [id number] Patient notified that it has been advised that she be seen by Neurology. Patient agreed to be seen and prefers to be seen by a provider in the [place], [place] area. Patient denies any concerns with transportation, and prefers to schedule her own appointment. Window Installer placed a call out to [facility] and spoke with Neeraj P: who confirmed that their office is able to accept new patients and the patient's insurance. After confirming the providers fax number, development writer faxed over the patient's referral, and [...]
--- OUTSIDE RECORDS SUMMARY | 2021-10-07 20:00 | XMS_ITS | CCD ---
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 Unknown Has never used illegal drugs 05/31/2018 DNR Order/ Advanced Directive Unknown Full Code 05/31/2018 Allergies, Adverse Reactions, Alerts Substance Reaction Codes Entered Date Inactivated Date Status OxyContin itch, RxNorm: 446810 01/13/2021 No Inactive Da te Active *No known food allergies Unknown 09/06/2018 No I nactive Date Active Methylprednisolone hives RxNorm: 6902 09/06/2018 No Inac tive Date Active Problems Condition Codes Effective Dates Condition St atus Adult BMI 50.0-59.9 kg/sq m ICD-10: Z68. 43 ICD-9: V85.43 05/30/2018 Active Diarrhea ICD-10: R19.7 ICD-9: 787.91 08/13/2021 Active Family history of seizures ICD-10: Z84.8 9 ICD-9: V19.8 04/28/2021 Active Syncope and collapse ICD-10: R55 ICD-9: 780.2 01/01/2020 Active Type 2 diabetes mellitus wit h peripheral neuropathy ICD-10: E11.42 ICD-9: 250.60 11/28/2019 Active Patient not seen ICD-10: UXZ.01 ICD-9: UXZ.01 09/10/2021 Active GERD (gastroesophageal reflu x disease) ICD-10: [...] (mild) ICD-10: N18.2 ICD-9: 585.2 10/29/2020 Active Hypertensive heart disease w ith heart failure ICD-10: I11.0 ICD-9: 402.91 04/25/2019 Active Anorexia ICD-10: R63.0 ICD-9: 783.0 12/17/2020 [...] ICD-10: R51 ICD-9: 784.0 10/03/2018 Inactive 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 ICD-10: Z79.899 ICD-9: V58.69 04/25/2019 Inactive Type 2 diabetes mellitus wit hout complications ICD-10: E11.9 ICD-9: 250.00 10/03/2018 Inactive Wheezing ICD-10: R06.2 ICD-9: 786.07 08/08/2018 Inactive Abnormal urine finding ICD-10: R82.90 ICD-9: 791.9 09/24/2020 Resolved Abrasion of toe ICD-10: S90.416A ICD-9: 917.0 02/14/2020 Resolved [place] eye ICD-10: H10.029 ICD-9: 372.03 12/29/2019 Resolved [...] breast ICD-10: Z12.31 ICD-9: V76.12 04/17/2020 Active Fecal incontinence ICD-10: R15.9 ICD-9: 787.60 12/15/2019 Active Mixed incontinence ICD-10: N39.46 ICD-9: 788.33 05/24/2019 Active Asthma ICD-10: J45.909 ICD-9: 493.90 08/08/2018 Active Patient Not Seen ICD-10: UXZ.01 ICD-9: XZ0.1 04/27/2019 Active Abnormal electrocardiogram [ ECG] [EKG] ICD-10: R94.31 ICD-9: 794.31 05/30/2018 Active Edema, unspecified ICD-10: R60.9 ICD-9: 782.3 07/11/2018 Active long-term (current) use of non-steroidal anti-inflammatories (NSAID) ICD-10: Z79.1 ICD-9: V58.64 06/13/2018 Active Medications Medication Codes Instructions Start Date Stop Date Status Fill Instructions Ozempic 0.25 mg or 0.5 mg (2 mg/1.5 mL) subcutaneous pen injector RxNorm: 5044424 Take 0.5 Capsule(s) Injection once a week 10/07/19 22 2021 Inactive omeprazole 20 mg capsule,delayed release RxNorm: 494064 Take 1 Capsule(s) Oral every evening 09/22/20 21 2020 Inactive Ozempic 0.25 mg or 0.5 mg (2 mg/1.5 mL) subcutaneous pen injector RxNorm: 0295105 Take 0.25 Milligram(s) Subcutaneous once a week 09/11/20 21 2021 Inactive Easy Touch Alcohol Prep Pads RxNorm: 844326 USE DIRECTED EACH MORNING 09/03/20 21 2021 Inactive Probiotic 10 billion cell capsule RxNorm: 2183041 Take 1 Capsule(s) Oral every day 08/13/20 21 2021 Inactive levothyroxine 50 mcg tablet RxNorm: 861250 Take 1 Tablet(s) Oral every day 08/13/20 21 2020 Inactive Acid Angular Js Developer (famotidine) 20 mg tablet RxNorm: 085907 Take 1 Tablet(s) Oral every morning 08/13/20 21 2020 Inactive Heartburn Relief (famotidine) 10 mg tablet RxNorm: 711791 Take 1 Tablet(s) Oral QAM 08/07/20 21 2020 Inactive levothyroxine 50 mcg tablet RxNorm: 524193 Take 1 Tablet(s) Oral QD 08/07/20 21 2020 Inactive metformin 1,000 mg tablet RxNorm: 793084 1 Tablet(s) Oral two times a day 07/16/20 21 2021 Inactive Singulair 10 mg tablet RxNorm: 284032 TAKE (1) TABLET BY MOUTH DAILY 102020 Inactive lisinopril 2.5 mg tablet RxNorm: 822687 Take 1 Tablet(s) Oral every day 07/11/20 21 2020 Inactive hydrochlorothiazide 25 mg tablet RxNorm: 412529 Take 1 Tablet(s) Oral every day 06/12/20 21 2020 Inactive ondansetron 4 mg disintegrating tablet RxNorm: 325171 1 Tablet(s) Oral two times a day 06/10/20 21 2020 Inactive Sudafed 12 Hour 120 mg tablet,extended release RxNorm: 0015510 TAKE 1 TABLET BY MOUTH EVERY 12 HOURS NEEDED 06/01/20 21 2021 Inactive Heartburn Relief (famotidine) 10 mg tablet RxNorm: 380382 Take 1 Tablet(s) Oral every morning 05/07/20 21 2020 Inactive omeprazole 20 mg capsule,delayed release RxNorm: 036546 1 Capsule(s) Oral every evening 04/03/20 21 2020 Inactive sertraline 100 mg tablet RxNorm: 782717 2 Tablet(s) Oral every day 03/13/20 21 2020 Inactive levothyroxine 50 mcg tablet RxNorm: 948029 TAKE (1) TABLET BY MOUTH DAILY 02/04/20 21 2020 Inactive metformin 500 mg tablet RxNorm: 049021 1 Tablet(s) Oral two times a day take with 500mg to equal 1000mg 01/14/20 21 2020 Inactive gabapentin 300 mg capsule RxNorm: 525040 TAKE 1 CAPSULE BY MOUTH THREE TIMES A DAY 01/14/20 21 2020 Inactive lisinopril 2.5 mg tablet RxNorm: 345092 TAKE 1 TABLET BY MOUTH DAILY 01/06/20 21 2020 Inactive gabapentin 300 mg capsule RxNorm: 597750 TAKE 1 CAPSULE BY MOUTH THREE TIMES A DAY 01/06/20 21 2020 Inactive Singulair 10 mg tablet RxNorm: 855812 TAKE (1) TABLET BY MOUTH DAILY 01/06/20 21 2020 Inactive metformin 1,000 mg tablet RxNorm: 999814 1 Tablet(s) Oral two times a day 01/06/20 21 2020 Inactive atorvastatin 40 mg tablet RxNorm: 306428 1 Tablet(s) Oral every day 12/06/19 21 2020 Inactive omeprazole 20 mg capsule,delayed release RxNorm: 903039 1 Capsule(s) Oral every evening 11/24/19 21 2020 Inactive famotidine 10 mg tablet RxNorm: 495417 1 Tablet(s) Oral every morning 11/24/19 21 2020 Inactive Alcohol Prep Pads RxNorm: 757702 USE EACH MORNING 10/14/19 21 2020 Inactive omeprazole 20 mg capsule,delayed release RxNorm: 533486 1 Capsule(s) Oral two times a day 10/13/19 21 2021 Inactive omeprazole 20 mg capsule,delayed release RxNorm: 128657 TAKE 1 CAPSULE BY MOUTH EVERY DAY 10/08/19 21 2021 Inactive Macrobid 100 mg capsule RxNorm: 634726 1 Capsule(s) Oral every 12 hours with food 10/01/20 20 2020 Inactive omeprazole 20 mg capsule,delayed release RxNorm: 842225 1 Capsule(s) Oral two times a day 09/24/20 20 2021 Inactive metformin 1,000 mg tablet RxNorm: 563230 1 Tablet(s) Oral two times a day 08/19/20 20 2020 Inactive start on September 11, 2020 metformin 500 mg tablet RxNorm: 211717 1 Tablet(s) Oral two times a day take with 500mg to equal 1000mg 08/19/20 20 2019 Inactive gabapentin 300 mg capsule RxNorm: 098262 TAKE 1 CAPSULE BY MOUTH THREE TIMES DAILY 07/11/20 20 2020 Inactive cetirizine 10 mg tablet RxNorm: 3478460 TAKE (1) TABLET BY MOUTH DAILY 07/11/20 20 2020 Inactive metformin 500 mg tablet RxNorm: 648967 1 Tablet(s) Oral two times a day 07/08/20 20 2019 Inactive loperamide 2 mg tablet RxNorm: 897346 1 Tablet(s) Oral as needed take one tablet after each loose stool, maximum of 8 tablets in 24 hours 06/24/20 20 2021 Inactive Sudafed 12 Hour 120 mg tablet,extended release RxNorm: 2414205 TAKE 1 TABLET BY MOUTH EVERY 12 HOURS NEEDED 06/11/20 20 2019 Inactive hydrochlorothiazide 25 mg tablet RxNorm: 504676 TAKE (1) TABLET BY MOUTH EVERY DAY 06/11/20 20 2019 Inactive omeprazole 20 mg capsule,delayed release RxNorm: 797729 TAKE 1 CAPSULE BY MOUTH EVERY DAY 05/14/20 20 2020 Inactive metformin 500 mg tablet RxNorm: 309155 1 Tablet(s) Oral every day 05/12/20 20 2019 Inactive True Metrix Glucose Test Strip RxNorm: 1 Test Strips Miscellaneous two times a day as needed 04/17/20 No Stop Date Active metformin 500 mg tablet RxNorm: 869240 1 Tablet(s) Oral every day 04/17/20 20 2019 Inactive diclofenac sodium 75 mg tablet,delayed release RxNorm: 847060 1 Tablet(s) PO BID 04/14/20 20 2021 Inactive This refill negates all other refills of this medication Sudafed 12 Hour 120 mg tablet,extended release RxNorm: 5760927 TAKE 1 TABLET BY MOUTH EVERY 12 HOURS NEEDED 03/14/20 20 2019 Inactive True Metrix Glucose Test Strip RxNorm: 1 Test Strips Miscellaneous every morning 03/13/20 20 2019 Inactive 100/container True Metrix Glucose Test Strip RxNorm: 1 Test Strips Miscellaneous QA 02/22/20 20 2019 Inactive 100/container loperamide 2 mg tablet RxNorm: 663353 1 Tablet(s) Oral as needed take one tablet after each loose stool, maximum of 8 tablets in 24 hours 02/22/20 20 2019 Inactive cetirizine 10 mg tablet RxNorm: 9774997 1 Tablet(s) PO daily 01/17/20 20 2019 Inactive loperamide 2 mg tablet RxNorm: 178350 1 Tablet(s) Oral as needed take one tablet after each loose stool, maximum of 8 tablets in 24 hours 01/17/20 20 2019 Inactive quetiapine 100 mg tablet RxNorm: 185720 1 Tablet(s) Oral every night at bedtime 01/17/20 20 2019 Inactive levothyroxine 50 mcg tablet RxNorm: 620827 1 Tablet(s) PO daily 01/17/20 20 2020 Inactive gabapentin 300 mg capsule RxNorm: 087742 1 Capsule(s) PO TID 01/17/20 20 2019 Inactive levothyroxine 50 mcg tablet RxNorm: 630019 1 Tablet(s) PO daily 01/15/20 20 2019 Inactive lisinopril 2.5 mg tablet RxNorm: 618093 1 Tablet(s) PO daily 01/15/20 20 2020 Inactive gabapentin 300 mg capsule RxNorm: 537523 1 Capsule(s) PO TID 01/15/20 20 2019 Inactive cetirizine 10 mg tablet RxNorm: 3112085 1 Tablet(s) PO daily 01/15/20 20 2019 Inactive Singulair 10 mg tablet RxNorm: 374926 1 Tablet(s) PO daily 01/15/20 20 2020 Inactive gentamicin 0.3 % eye drops RxNorm: 921866 1 Drop(s) ophthalmic (eye) four times a day 12/29/19 20 2019 Inactive gentamicin 0.3 % eye drops RxNorm: 822174 1 Drop(s) ophthalmic (eye) four times a day 12/29/19 20 2019 Inactive gentamicin 0.3 % eye drops RxNorm: 393848 1 Drop(s) ophthalmic (eye) four times a day 12/29/19 20 2019 Inactive hydrochlorothiazide 25 mg tablet RxNorm: 474267 1 Tablet(s) Oral every day 12/21/19 20 2019 Inactive Sudafed 12 Hour 120 mg tablet,extended release RxNorm: 8257517 TAKE (1) TABLET BY MOUTH EVERY 12 HOURS NEEDED 12/21/19 20 2019 Inactive loperamide 2 mg tablet RxNorm: 512166 1 Tablet(s) Oral as needed take one tablet after each loose stool, maximum of 8 tablets in 24 hours 12/11/19 20 2019 Inactive loperamide 2 mg tablet RxNorm: 066511 1 Tablet(s) Oral as needed take one tablet after each loose stool, maximum of 8 tablets in 24 hours 12/11/19 20 2019 Inactive atorvastatin 40 mg tablet RxNorm: 318645 1 Tablet(s) Oral every day 11/29/19 20 2020 Inactive quetiapine 100 mg tablet RxNorm: 972745 1 Tablet(s) Oral every night at bedtime 11/28/19 20 2019 Inactive sertraline 100 mg tablet RxNorm: 222168 1 Tablet(s) Oral 11/28/19 20 2019 Inactive omeprazole 20 mg capsule,delayed release RxNorm: 936132 1 Capsule(s) Oral every day 11/20/19 20 2019 Inactive amoxicillin 250 mg capsule RxNorm: 967589 1 Capsule(s) Oral three times a day 11/07/19 20 2019 Inactive multivitamin with iron-mineral tablet RxNorm: 1 Tablet(s) Oral every day 10/29/19 20 2021 Inactive cetirizine 10 mg tablet RxNorm: 3773258 1 Tablet(s) PO daily 10/20/19 20 2019 Inactive This refill negates all other refills of this medication. Please do not auto refill Singulair 10 mg tablet RxNorm: 145789 1 Tablet(s) PO daily 10/20/19 20 2019 Inactive This refill negates all other refills of this medication gabapentin 300 mg capsule RxNorm: 258071 1 Capsule(s) PO TID 10/20/19 20 2019 Inactive lisinopril 2.5 mg tablet RxNorm: 260161 1 Tablet(s) PO daily 10/20/19 20 2019 Inactive levothyroxine 50 mcg tablet RxNorm: 832182 1 Tablet(s) PO daily 10/20/19 20 2019 Inactive This refill negates all other refills of this medication fenugreek seed extract 500 mg capsule RxNorm: 1 Capsule(s) Oral three times a day 10/17/19 20 2021 Inactive hydrochlorothiazide 25 mg tablet RxNorm: 323187 1 Tablet(s) Oral every day 10/17/19 20 2019 Inactive Alcohol Prep Pads RxNorm: 965901 1 Patch TOP QAM 10/16/19 20 2020 Inactive loperamide 2 mg tablet RxNorm: 697500 1 Tablet(s) Oral as needed take one [...] 09/19/202019 Inactive hydrochlorothiazide 25 mg tablet RxNorm: 717011 1 Tablet(s) Oral every day 09/19/202019 Inactive Sudafed 12 Hour 120 mg tablet,extended release RxNorm: 8559927 1 Tablet(s) Oral every 12 hours as needed 09/11/20 19 2018 Inactive omeprazole 20 mg capsule,delayed release RxNorm: 232304 1 Capsule(s) Oral every day 09/07/20 19 2019 Inactive Sudafed 12 Hour 120 mg tablet,extended release RxNorm: 8215263 1 Tablet(s) Oral every 12 hours as needed 09/04/20 19 2018 Inactive pantoprazole 40 mg tablet,delayed release RxNorm: 149878 1 Tablet(s) Oral every day 08/24/202018 Inactive discontinue any other H2Blkr. and PPI albuterol sulfate 2.5 mg/3 mL (0.083 %) solution for nebulization RxNorm: 213686 1 Vial Inhalation every four hours as needed as needed for dyspnea 08/17/20 19 2019 Inactive 60/box. This refill negates all other refills of this medication. Please do not fill early. Please do not auto refill. Symbicort 160 mcg-4.5 mcg/actuation HFA aerosol inhaler RxNorm: 1037056 2 Puff(s) INH BID 08/17/20 19 No Stop Date Active Alcohol Prep Pads RxNorm: 632813 1 Patch TOP QAM 08/17/20 19 2019 Inactive Ventolin HFA 90 mcg/actuation aerosol inhaler RxNorm: 804127 2 Puff(s) INH QID 08/09/20 19 2019 Inactive Please do not fill early. Please do not auto refill. This refill negates all other refills of this medication True Metrix Glucose Test Strip RxNorm: 1 Test Strips Miscellaneous QA 08/09/20 19 2019 Inactive 100/container atorvastatin 40 mg tablet RxNorm: 473412 1 Tablet(s) Oral every day 07/04/20 19 2019 Inactive levmetamfetamine 50 mg nasal inhaler RxNorm: 1 Unit(s) NASAL Q3-4H Do not use more than every 3 hours or 8 times/24hours 06/26/20 19 2021 Inactive Please do not auto refill. This refill negates all other refills of this medication buspirone 7.5 mg tablet RxNorm: 437783 1 Tablet(s) PO BID 06/26/20 19 2020 Inactive This refill negates all other refills of this medication hydrochlorothiazide 12.5 mg tablet RxNorm: 173849 1 Tablet(s) PO QAM 06/26/20 19 2019 Inactive Ventolin HFA 90 mcg/actuation aerosol inhaler RxNorm: 623775 2 Puff(s) INH QID 06/26/20 19 2018 Inactive Please do not fill early. Please do not auto refill. This refill negates all other refills of this medication Singulair 10 mg tablet RxNorm: 208545 1 Tablet(s) PO daily 06/26/20 19 2019 Inactive This refill negates all other refills of this medication cetirizine 10 mg tablet RxNorm: 7223277 1 Tablet(s) PO daily 06/26/20 19 2019 Inactive This refill negates all other refills of this medication. Please do not auto refill levothyroxine 50 mcg tablet RxNorm: 985525 1 Tablet(s) PO daily 06/26/20 19 2019 Inactive This refill negates all other refills of this medication diclofenac sodium 75 mg tablet,delayed release RxNorm: 727486 1 Tablet(s) PO BID 06/26/20 19 2019 Inactive This refill negates all other refills of this medication ranitidine 150 mg tablet RxNorm: 995975 1 Tablet(s) PO BID 06/26/20 19 2018 Inactive This refill negates all other refills of this medication Calcium 600-D3 Plus (mag-zinc) 600 mg calcium-800 unit-50 mg tablet RxNorm: 1 Tablet(s) PO daily take an additonal tablet for itching. 06/26/20 19 2018 Inactive This refill negates all other refills of this medication albuterol sulfate 2.5 mg/3 mL (0.083 %) solution for nebulization RxNorm: 397848 1 Vial INH QID 06/26/20 19 2018 Inactive 60/box. This refill negates all other refills of this medication. Please do not fill early. Please do not auto refill. lisinopril 2.5 mg tablet RxNorm: 576388 1 Tablet(s) PO daily 06/21/20 19 2019 Inactive gabapentin 300 mg capsule RxNorm: 631760 1 Capsule(s) PO TID 06/21/20 19 2019 Inactive atorvastatin 20 mg tablet RxNorm: 794226 1 Tablet(s) PO QHS 06/07/20 19 2018 Inactive This refill negates all other refills of this medication TRUEplus Lancets 30 gauge RxNorm: 1 Lancets Miscellaneous QAM 05/29/20 19 2018 Inactive 100/box gabapentin 300 mg capsule RxNorm: 515524 1 Capsule(s) PO TID 05/03/20 19 2018 Inactive Flintstones Complete (iron) 18 mg iron chewable tablet RxNorm: 1 Tablet(s) PO daily 04/04/202021 Inactive This refill negates all other refills of this medication gabapentin 300 mg capsule RxNorm: 952421 1 Capsule(s) PO TID as needed 02/01/20 19 2018 Inactive True Metrix Glucose Test Strip RxNorm: 1 Test Strips Miscellaneous QAM 02/01/20 19 2018 Inactive 100/container Alcohol Prep Pads RxNorm: 369311 1 Patch TOP QAM 02/01/20 19 2018 Inactive TRUEplus Lancets 30 gauge RxNorm: 1 Lancets Miscellaneous QAM 02/01/20 19 2018 Inactive 100/box lisinopril 2.5 mg tablet RxNorm: 821962 1 Tablet(s) PO daily 12/28/19 19 2018 Inactive ranitidine 150 mg tablet RxNorm: 012368 1 Tablet(s) PO BID 10/21/192018 Inactive This refill negates all other refills of this medication albuterol sulfate 2.5 mg/3 mL (0.083 %) solution for nebulization RxNorm: 240564 1 Vial INH QID 10/21/192018 Inactive 60/box. [...] this medication gabapentin 300 mg capsule RxNorm: 172805 1 Capsule(s) PO TID as needed 10/21/192018 Inactive atorvastatin 20 mg tablet RxNorm: 387917 1 Tablet(s) PO QHS 10/21/19 19 2018 Inactive This refill negates all other refills of this medication trazodone 50 mg tablet RxNorm: 946574 1 Tablet(s) PO QHS 10/21/192018 Inactive This refill negates all other refills of this medication Ventolin HFA 90 mcg/actuation aerosol inhaler RxNorm: 926254 2 Puff(s) INH QID 10/21/19 19 2018 Inactive Please do not fill early. Please do not auto refill. This refill negates all other refills of this medication Calcium 600-D3 Plus 600 mg calcium-800 unit-50 mg tablet RxNorm: 1 Tablet(s) PO daily take an additonal tablet for itching. 10/21/192018 Inactive This refill negates all other refills of this medication Singulair 10 mg tablet RxNorm: 277193 1 Tablet(s) PO daily 10/21/192018 Inactive This refill negates all other refills of this medication buspirone 7.5 mg tablet RxNorm: 034186 1 Tablet(s) PO BID 10/21/192018 Inactive This refill negates all other refills of this medication diclofenac sodium 75 mg tablet,delayed release RxNorm: 735114 1 Tablet(s) PO BID 10/21/192018 Inactive This refill negates all other refills of this medication hydrochlorothiazide 12.5 mg tablet RxNorm: 779228 1 Tablet(s) PO QAM 10/21/192018 Inactive metoprolol succinate ER 50 mg tablet,extended release 24 hr RxNorm: 084127 1 Tablet(s) PO daily 10/21/192018 Inactive This refill negates all other refills of this medication levothyroxine 50 mcg tablet RxNorm: 144806 1 Tablet(s) PO daily 10/21/192018 Inactive This refill negates all other refills of this medication cetirizine 10 mg tablet RxNorm: 7208580 1 Tablet(s) PO daily 10/21/192018 Inactive This refill negates all other refills of this medication. Please do not auto refill Flintstones Complete (iron) 18 mg iron chewable tablet RxNorm: 1 Tablet(s) PO daily 10/21/192018 Inactive This refill negates all other refills of this medication buspirone 7.5 mg tablet RxNorm: 692137 1 Tablet(s) PO BID 10/12/19 19 2018 Inactive cetirizine 10 mg tablet RxNorm: 0274494 1 Tablet(s) PO daily 09/28/20 18 2018 Inactive Guaiasorb DM 10 mg-100 mg/5 mL oral liquid RxNorm: 720093 10 Milliliter(s) PO As needed every 4 hr 09/24/20 18 2018 Inactive Vicks Vaporub 4.7 %-1.2 %-2.6 % topical ointment RxNorm: 9828162 1 Application TOP TID 09/24/20 18 2018 Inactive levmetamfetamine 50 mg nasal inhaler RxNorm: 1 Unit(s) NASAL Q3-4H 09/24/20 18 2017 Inactive sertraline 50 mg tablet RxNorm: 177121 1 Tablet(s) PO daily 09/09/20 18 2018 Inactive Please note dose trazodone 50 mg tablet RxNorm: 476194 1 Tablet(s) PO QHS 09/06/20 18 2018 Inactive sertraline 50 mg tablet RxNorm: 502350 1 Tablet(s) PO daily 09/06/20 18 2017 Inactive amoxicillin 500 mg tablet RxNorm: 498562 1 Tablet(s) PO Q12H 08/31/20 18 2017 Inactive albuterol sulfate 2.5 mg/3 mL (0.083 %) solution for nebulization RxNorm: 393205 1 Vial INH QID 08/10/20 18 2018 Inactive 60/box. Please do not fill early. Please do not auto refill. Prozac 10 mg capsule RxNorm: 939867 1 Capsule(s) PO daily 08/09/20 18 2017 Inactive buspirone 7.5 mg tablet RxNorm: 554739 1 Tablet(s) PO BID 08/09/20 18 2018 Inactive gabapentin 300 mg capsule RxNorm: 641326 1 Capsule(s) PO TID as needed 08/01/20 18 2018 Inactive hydrochlorothiazide 12.5 mg tablet RxNorm: 614381 1 Tablet(s) PO QAM 08/01/20 18 2018 Inactive ranitidine 150 mg tablet RxNorm: 509694 1 Tablet(s) PO BID 08/01/20 18 2018 Inactive Macrobid 100 mg capsule RxNorm: 112775 1 Capsule(s) PO Q12H 06/21/20 18 2017 Inactive Singulair 10 mg tablet RxNorm: 120456 1 Tablet(s) PO daily 06/14/20 18 2018 Inactive Ventolin HFA 90 mcg/actuation aerosol inhaler RxNorm: 1766385 2 Puff(s) INH QID 06/14/20 18 2018 Inactive Singulair 10 mg tablet RxNorm: 461286 1 Tablet(s) PO daily 06/14/20 18 2017 Inactive buspirone 7.5 mg tablet RxNorm: 342618 1 Tablet(s) PO BID 06/14/20 18 2017 Inactive Prozac 10 mg capsule RxNorm: 146054 1 Capsule(s) PO daily 06/14/20 18 2017 Inactive Neilmed Pediatric Sinus Rinse Refill packet RxNorm: 1 Unit Dose NASAL PRN 05/31/20 18 2021 Inactive diclofenac sodium 75 mg tablet,delayed release RxNorm: 967561 1 Tablet(s) PO BID 05/31/20 18 2017 Inactive lisinopril 2.5 mg tablet RxNorm: 260868 1 Tablet(s) PO daily 05/31/20 18 2017 Inactive metoprolol succinate ER 50 mg tablet,extended release 24 hr RxNorm: 025774 1 Tablet(s) PO daily 05/31/20 18 2017 Inactive levothyroxine 50 mcg tablet RxNorm: 008916 1 Tablet(s) PO daily 05/31/20 18 2017 Inactive TRUEplus Lancets 30 gauge RxNorm: 1 Lancets Miscellaneous QAM 05/31/20 18 2017 Inactive 100/box Ventolin HFA 90 mcg/actuation aerosol inhaler RxNorm: 389799 2 Puff(s) INH QID 05/31/20 18 2017 Inactive Aleve 220 mg capsule RxNorm: 5134501 1 Capsule(s) PO BID 05/31/20 18 2018 Inactive ranitidine 150 mg tablet RxNorm: 647476 1 Tablet(s) PO BID 05/31/20 18 2017 Inactive gabapentin 300 mg capsule RxNorm: 087053 1 Capsule(s) PO TID as needed 05/31/20 18 2017 Inactive atorvastatin 20 mg tablet RxNorm: 172660 1 Tablet(s) PO QHS 05/31/20 18 2017 Inactive True Metrix Glucose Test Strip RxNorm: 1 Test Strips Miscellaneous QAM 05/31/20 18 2017 Inactive 50/container Calcium 600-D3 Plus 600 mg calcium-800 unit-50 mg tablet RxNorm: 1 Tablet(s) PO daily take an additonal tablet for itching. 05/31/20 18 2017 Inactive hydrochlorothiazide 12.5 mg tablet RxNorm: 813616 1 Tablet(s) PO QAM 05/31/20 18 2017 Inactive Flintstones Complete (iron) 18 mg iron chewable tablet RxNorm: 1 Tablet(s) PO daily 05/31/20 18 2017 Inactive d-mannose oral powder RxNorm: PO 18 2021 Inactive True Metrix Glucose Meter RxNorm: miscellaneous 08/17/20 19 2018 Inactive sertraline 50 mg tablet RxNorm: 595454 1 Tablet(s) PO daily 11/28/19 20 2019 Inactive loperamide 2 mg tablet RxNorm: 247751 oral 09/29/20 19 2018 Inactive Symbicort 160 mcg-4.5 mcg/actuation HFA aerosol inhaler RxNorm: 7677210 2 Puff(s) INH BID 08/17/20 19 2018 [...] Score:/0-4 = Negative for depression- NO PLAN NEEDED CPT-4: DPHQUnknown 10/07/2021 Maltreatment Assessment 1. Have you relied on [...] 2-6. No plan required, re-evaluate annually or prn CPT-4: MTAUnknown 10/07/2021 Functional Assessment ADLs - Patient needs direct assistance, cuing, or supervision, to perform the following safely:/*No assistance, cuing, or supervision needed, IADLs - Patient needs direct assistance, cuing, or supervision, to perform the following safely:/*No assistance, cuing, or supervision needed CPT-4: DFAUnknown 10/07/2021 Frailty Screening CPT-4: SFD 05/20/2021 Hypertension CPT-4: HTN 04/01/2021 Tobacco Assessment/Screening CPT-4: TCA 08/2021 Patient Health Questionnaire CPT-4: DPHQ 08/2021 Mini Mental State Exam CPT-4: DMMA Annual Wellness Visit (Subsequent Visit) CPT-4: G0439 01/13/2021 Advanced Care Planning CPT-4: VACP Fall Risk Assessment SNOMED CT: [id number] 4 CPT-4: DFRA 01/13/2021 [place] Assessment CPT-4: DSWA 12/01 Urinalysis, dip stick CPT-4: 26835 09/24/2020 Patient Health Questionnaire CPT-4: DPHQ Electrocardiogram CPT-4: 47744 05/14/2020 Tobacco Assessment/Screening CPT-4: TCA Fall Risk Assessment SNOMED CT: 63274752 4 CPT-4: DFRA 01/01/2020 Functional Assessment CPT-4: DFA 01/01/2020 [place] Assessment CPT-4: DSWA 11/04 Patient Health Questionnaire CPT-4: DPHQ [place] Assessment CPT-4: DSWA 10/03 Hypertension CPT-4: HTN 10/17/2019 Fall Risk Assessment SNOMED CT: 71843034 4 CPT-4: DFRA 09/19/2019 Functional Assessment CPT-4: DFA 09/19/2019 Urinalysis, dip stick CPT-4: 51790 06/21/2019 Tobacco Assessment/Screening CPT-4: TCA Patient Health Questionnaire CPT-4: DPHQ AHA/REBECCA Classification Assessment CPT-4: DAHA 04/25/2019 Controlled Substance Report CPT-4: CTRSU 04/03 Urinalysis, dip stick CPT-4: 39748 03/28/2019 Urinalysis, dip stick CPT-4: 01704 03/28/2019 N4P-Ectjroenmcqbxee CPT-4: 54870 Unknown C5E-Pyzbxqsizmuemof CPT-4: 21678 Unknown H2S-Oalhyxrzjrcxene CPT-4: 29925 Unknown O8X-Snpjhrogminrqbz CPT-4: 69498 Unknown S8J-Jnuxyxtpmjothbe CPT-4: 80980 Unknown H7X-Ednmrqctujzrdqw CPT-4: 86145 Unknown O7Q-Nbnmpwhbvuknmxq CPT-4: 04074 Unknown Gynecology Referral SNOMED CT: 658320262 CPT-4: R14 Unknown Vital Signs Date Vital 10/07/2021 Blood Pressure 1: 122/78 Code: 8480-6 BMI: 53.7 Code: 62167-4 Heart Rate 1: 80 bpm Height: 4'11 Code: 8302-2 Respiratory Rate: 18 bpm SpO2: 98% Temperature: 36.6 (C) / 97.8 (F) Weight: 266 lbs Code: 96882-8 Reason For Visit Reason For Visit Effective Dates Notes hyperglycemia condition 10/07/2021 weight gain/obesity 10/07/2021 Encounters Encounter Performer Location Location Address Codes [place] ([address]) HOME VISIT EST PATIENT Diagnosis: Type 2 diabetes mellitus with peripheral neuropathy[ICD10: E11.42] Diagnosis: Adult BMI 50.0-59.9 kg/sq m[ICD10: Z68.43] Diagnosis: Diarrhea[ICD10: R19.7] Diagnosis: Syncope and collapse[ICD10: R55] Diagnosis: Family history of seizures[ICD10: Z84.89] Chivo Bishop [place] Office [id number] [place] [address] CPT-4: 10112 10/07/2021 Plan of Care Planned Activity Notes [...] office for persistent or worsening symptoms 10/07/2021 Patient Education: Patient Medication Summary Completed 10/07/2021 Patient Education: Weight Gain Completed 10/07/2021 Appointment: Chivo Bishop WPtel: [address] [place] [address] ETV 09/10/2021 Appointment: Chivo Bishop WPtel: [address] [place] [address] ETV 08/13/2021 Appointment: Chivo Bishop WPtel: [address] [place] [address] ETV 07/06/2021 Appointment: Chivo Bishop WPtel: [address] [place] [address] PHTV 06/10/2021 Appointment: Anna Culver WPtel: [address] [place] [address] ETV 06/02/2021 Appointment: Chivo Bishop WPtel: [address] [place] [address] ETV 05/20/2021 Appointment: Anna Culver WPtel: [address] [place] [address] ETV 04/28/2021 Appointment: Chivo Bishop WPtel: [address] [place] [address] ETV 04/15/2021 Appointment: Anna Culver WPtel: [address] [place] [address] [place] E410 04/01/2021 Appointment: Anna Culver WPtel: [address] [place] [address] ETV 03/24/2021 Appointment: Anna Culver WPtel: [address] [place] [address] ETV 03/13/2021 Appointment: Anna Culver WPtel: [address] [place] [address] E410 02/11/2021 Appointment: Chivo Bishop WPtel: [id number] [place] [address] E410 01/29/2021 Appointment: Anna Culver WPtel: [address] [place] [address] ETV 01/13/2021 Appointment: Anna Culver WPtel: [address] [place] [address] E410 12/17/2020 Appointment: Chivo Bishop WPtel: [address] [place] [address] ETV 11/28/2020 Appointment: Anna Culver WPtel: [address] [place] [address] ETV 11/24/2020 Appointment: Anna Culver WPtel: [address] [place] [address] E410 10/29/2020 Appointment: Anna Culver WPtel: [address] [place] [address] E410 09/24/2020 Appointment: Anna Culver WPtel: [address] [place] [address] ETV 08/26/2020 Appointment: Anna Culver WPtel: [address] [place] [address] ETV 08/19/2020 Appointment: Anna Culver WPtel: [address] [place] [address] ETV 07/22/2020 Appointment: Anna Culver WPtel: [address] [place] [address] ETV 07/08/2020 Appointment: Gianna Birmingham: [address] [facility] [address] [id number] [place] ECHO 07/02/2020 Appointment: Anna Culver WPtel: [id number] [place] [address] E452 06/11/2020 Appointment: Anna Culver WPtel: [phone] [place] [address] E452 05/14/2020 Appointment: Anna Culver WPtel: [address] [place] [address] E452 04/17/2020 Appointment: Anna Culver WPtel: [address] [place] [address] E452 03/21/2020 Appointment: Anna Culver WPtel: [address] [place] [address] E452 02/14/2020 Appointment: Anna Culver WPtel: [address] [place] [address] E452 01/24/2020 Appointment: Anna Culver WPtel: [address] [place] [address] E452 01/01/2020 Appointment: Anna Culver WPtel: [address] [place] [address] [place] E452 11/28/2019 Appointment: Anna Culver WPtel: [id number] [place] [address] [place] E452 10/17/2019 Appointment: Anna Culver WPtel: [address] [place] [address] [place] E452 09/19/2019 Appointment: Sudha Hernadez WPtel: [address] [facility] [address] [id number] [place] E452 07/04/2019 Appointment: Sudha Hernadez WPtel: [address] [facility] b [id number] E452 06/21/2019 Appointment: Charlene Oropeza WPtel: [address] [facility] [id number] E452 05/24/2019 Appointment: Mallory Delgado E452 04/27/2019 Appointment: Charlene Oropeza WPtel: [address] [facility] [id number] E452 04/25/2019 Appointment: Rasta Palafox WPtel: [address] [facility] [id number] E452 03/28/2019 Appointment: Rasta Palafox WPtel: [address] [place] [address] [id number] E452 02/14/2019 Appointment: Rasta Palafox WPtel: [address] [facility] [id number] E452 01/31/2019 Appointment: Rasta Palafox WPtel: [address] [place] [address] [id number] E420 12/27/2018 Referral: Pending Gynecology Referral Information Referral Processed Referral: Pending Pulmonolog y Referral Information Referral Processed Referral: Pending Psychiatry Referral Information Referral Initiated Referral: Pending Respirator y Services Referral Information Referral Initiated Referral: Pending Ophthalmology Referral Information Referral Initiated Referral: [facility] WPtel: 0 [facility] [address] [employer] placed a call out to the patient to notify her that it has been recommended that she be seen by 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 Patient agreed to be seen, does not have a provider of choice and no transportation issues. [employer] faxed referral and clinical notes to [facility] in [place], [place] near the patient's home. Patient to [...] seen and prefers a provider in the [place] or [place] area. [employer] placed a call out to everyone listed in the area and the only location that was able to accept the patient's insurance was [facility] [address] [place] [address] and spoke with Maylin. Maylin asked that the patient's referral, face sheet and visit notes be faxed to . [employer] faxed over requested documents. Patient appointment confirmation letter generated and mailed to her home address. Patient to call to schedule an appointment. Processed Referral: [facility] WPtel: [address] [place] [address] Patient notified that it has been advised that she be seen by Neurology. Patient agreed to be seen and prefers to be seen by a provider in the [place] area. Patient denies any concerns with transportation, and prefers to schedule her own appointment. [employer] placed a call out to [facility] and spoke with Neeraj Mcfarland: who confirmed that their office is able to accept new patients and the patient's insurance. After confirming the providers fax number, director underwriter sales faxed over the patient's referral, and most [...] Information Referral Initiated Instructions Comment Date . [id number] Diarrhea has resolved following change from metformin [...]
--- OUTSIDE RECORDS SUMMARY | 2021-11-01 20:00 | XMS_ITS | CCD ---
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 Unknown Has never used illegal drugs 05/31/2018 DNR Order/ Advanced Directive Unknown Full Code 05/31/2018 Allergies, Adverse Reactions, Alerts Substance Reaction Codes Entered Date Inactivated Date Status OxyContin itch, RxNorm: 594727 01/13/2021 No Inactive Da te Active *No known food allergies Unknown 09/06/2018 No I nactive Date Active Methylprednisolone hives RxNorm: 6902 09/06/2018 No Inac tive Date Active Problems Condition Codes Effective Dates Condition St atus Adult BMI 50.0-59.9 kg/sq m ICD-10: Z68. 43 ICD-9: V85.43 05/30/2018 Active Family history of seizures ICD-10: Z84.8 9 ICD-9: V19.8 04/28/2021 Active Obstructive sleep apnea (chio lt) (pediatric) ICD-10: G47.33 ICD-9: 327.23 06/21/2019 Active Syncope and collapse ICD-10: R55 ICD-9: 780.2 01/01/2020 Active Type 2 diabetes mellitus wit h peripheral neuropathy ICD-10: E11.42 ICD-9: 250.60 11/28/2019 Active Diarrhea ICD-10: R19.7 ICD-9: 787.91 08/13/2021 Active Patient not seen ICD-10: UXZ.01 ICD-9: [...] Blister ICD-10: T14.8XXA ICD-9: 919.2 03/24/2021 Active Encounter for screening for tobacco use [...] ICD-10: R51 ICD-9: 784.0 10/03/2018 Inactive 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 ICD-10: Z79.899 ICD-9: V58.69 04/25/2019 Inactive Type 2 diabetes mellitus wit hout complications ICD-10: E11.9 ICD-9: 250.00 10/03/2018 Inactive Wheezing ICD-10: R06.2 ICD-9: 786.07 08/08/2018 Inactive Abnormal urine finding ICD-10: R82.90 ICD-9: 791.9 09/24/2020 Resolved Abrasion of toe ICD-10: S90.416A ICD-9: 917.0 02/14/2020 Resolved [place] [facility] ICD-10: H10.029 ICD-9: 372.03 12/29/2019 Resolved [...] unspecified ICD-10: R60.9 ICD-9: 782.3 07/11/2018 Active USP (current) use of non-steroidal anti-inflammatories (NSAID) ICD-10: Z79.1 ICD-9: V58.64 06/13/2018 Active Medications Medication Codes Instructions Start Date Stop Date Status Fill Instructions Ozempic 0.25 mg or 0.5 mg (2 mg/1.5 mL) subcutaneous pen injector RxNorm: 1223911 Take 0.5 Capsule(s) Injection once a week 10/07/19 22 2021 Inactive omeprazole 20 mg capsule,delayed release RxNorm: 112368 Take 1 Capsule(s) Oral every evening 09/22/20 21 2020 Inactive Ozempic 0.25 mg or 0.5 mg (2 mg/1.5 mL) subcutaneous pen injector RxNorm: 4571166 Take 0.25 Milligram(s) Subcutaneous once a week 09/11/20 21 2021 Inactive Easy Touch Alcohol Prep Pads RxNorm: 316522 USE DIRECTED EACH MORNING 09/03/20 21 2021 Inactive Probiotic 10 billion cell capsule RxNorm: 0507159 Take 1 Capsule(s) Oral every day 08/13/20 21 2021 Inactive levothyroxine 50 mcg tablet RxNorm: 182313 Take 1 Tablet(s) Oral every day 08/13/20 21 2020 Inactive Acid Mold Maker Helper (famotidine) 20 mg tablet RxNorm: 737931 Take 1 Tablet(s) Oral every morning 08/13/20 21 2020 Inactive Heartburn Relief (famotidine) 10 mg tablet RxNorm: 167120 Take 1 Tablet(s) Oral QAM 08/07/20 21 2020 Inactive levothyroxine 50 mcg tablet RxNorm: 418080 Take 1 Tablet(s) Oral QD 08/07/20 21 2020 Inactive metformin 1,000 mg tablet RxNorm: 495584 1 Tablet(s) Oral two times a day 07/16/20 21 2021 Inactive Singulair 10 mg tablet RxNorm: 176570 TAKE (1) TABLET BY MOUTH DAILY 102020 Inactive lisinopril 2.5 mg tablet RxNorm: 262862 Take 1 Tablet(s) Oral every day 07/11/20 21 2020 Inactive hydrochlorothiazide 25 mg tablet RxNorm: 682324 Take 1 Tablet(s) Oral every day 06/12/20 21 2020 Inactive ondansetron 4 mg disintegrating tablet RxNorm: 832589 1 Tablet(s) Oral two times a day 06/10/20 21 2020 Inactive Sudafed 12 Hour 120 mg tablet,extended release RxNorm: 9004212 TAKE 1 TABLET BY MOUTH EVERY 12 HOURS NEEDED 06/01/20 21 2021 Inactive Heartburn Relief (famotidine) 10 mg tablet RxNorm: 791863 Take 1 Tablet(s) Oral every morning 05/07/20 21 2020 Inactive omeprazole 20 mg capsule,delayed release RxNorm: 132303 1 Capsule(s) Oral every evening 04/03/20 21 2020 Inactive sertraline 100 mg tablet RxNorm: 211637 2 Tablet(s) Oral every day 03/13/20 21 2020 Inactive levothyroxine 50 mcg tablet RxNorm: 852886 TAKE (1) TABLET BY MOUTH DAILY 02/04/20 21 2020 Inactive metformin 500 mg tablet RxNorm: 162888 1 Tablet(s) Oral two times a day take with 500mg to equal 1000mg 01/14/20 21 2020 Inactive gabapentin 300 mg capsule RxNorm: 004444 TAKE 1 CAPSULE BY MOUTH THREE TIMES A DAY 01/14/20 21 2020 Inactive lisinopril 2.5 mg tablet RxNorm: 332155 TAKE 1 TABLET BY MOUTH DAILY 01/06/20 21 2020 Inactive gabapentin 300 mg capsule RxNorm: 151213 TAKE 1 CAPSULE BY MOUTH THREE TIMES A DAY 01/06/20 21 2020 Inactive Singulair 10 mg tablet RxNorm: 870959 TAKE (1) TABLET BY MOUTH DAILY 01/06/20 21 2020 Inactive metformin 1,000 mg tablet RxNorm: 543087 1 Tablet(s) Oral two times a day 01/06/20 21 2020 Inactive atorvastatin 40 mg tablet RxNorm: 709384 1 Tablet(s) Oral every day 12/06/19 21 2020 Inactive omeprazole 20 mg capsule,delayed release RxNorm: 650647 1 Capsule(s) Oral every evening 11/24/19 21 2020 Inactive famotidine 10 mg tablet RxNorm: 868245 1 Tablet(s) Oral every morning 11/24/19 21 2020 Inactive Alcohol Prep Pads RxNorm: 097760 USE EACH MORNING 10/14/19 21 2020 Inactive omeprazole 20 mg capsule,delayed release RxNorm: 233968 1 Capsule(s) Oral two times a day 10/13/19 21 2021 Inactive omeprazole 20 mg capsule,delayed release RxNorm: 800187 TAKE 1 CAPSULE BY MOUTH EVERY DAY 10/08/19 21 2021 Inactive Macrobid 100 mg capsule RxNorm: 969635 1 Capsule(s) Oral every 12 hours with food 10/01/20 20 2020 Inactive omeprazole 20 mg capsule,delayed release RxNorm: 676273 1 Capsule(s) Oral two times a day 09/24/20 20 2021 Inactive metformin 1,000 mg tablet RxNorm: 293663 1 Tablet(s) Oral two times a day 08/19/20 20 2020 Inactive start on September 11, 2020 metformin 500 mg tablet RxNorm: 406744 1 Tablet(s) Oral two times a day take with 500mg to equal 1000mg 08/19/20 20 2019 Inactive gabapentin 300 mg capsule RxNorm: 482824 TAKE 1 CAPSULE BY MOUTH THREE TIMES DAILY 07/11/20 20 2020 Inactive cetirizine 10 mg tablet RxNorm: 3943514 TAKE (1) TABLET BY MOUTH DAILY 07/11/20 20 2020 Inactive metformin 500 mg tablet RxNorm: 861837 1 Tablet(s) Oral two times a day 07/08/20 20 2019 Inactive loperamide 2 mg tablet RxNorm: 766708 1 Tablet(s) Oral as needed take one tablet after each loose stool, maximum of 8 tablets in 24 hours 06/24/20 20 2021 Inactive Sudafed 12 Hour 120 mg tablet,extended release RxNorm: 5098429 TAKE 1 TABLET BY MOUTH EVERY 12 HOURS NEEDED 06/11/20 20 2019 Inactive hydrochlorothiazide 25 mg tablet RxNorm: 090681 TAKE (1) TABLET BY MOUTH EVERY DAY 06/11/20 20 2019 Inactive omeprazole 20 mg capsule,delayed release RxNorm: 171896 TAKE 1 CAPSULE BY MOUTH EVERY DAY 05/14/20 20 2020 Inactive metformin 500 mg tablet RxNorm: 542363 1 Tablet(s) Oral every day 05/12/20 20 2019 Inactive True Metrix Glucose Test Strip RxNorm: 1 Test Strips Miscellaneous two times a day as needed 04/17/20 No Stop Date Active metformin 500 mg tablet RxNorm: 327167 1 Tablet(s) Oral every day 04/17/20 20 2019 Inactive diclofenac sodium 75 mg tablet,delayed release RxNorm: 038035 1 Tablet(s) PO BID 04/14/20 20 2021 Inactive This refill negates all other refills of this medication Sudafed 12 Hour 120 mg tablet,extended release RxNorm: 6544741 TAKE 1 TABLET BY MOUTH EVERY 12 HOURS NEEDED 03/14/20 20 2019 Inactive True Metrix Glucose Test Strip RxNorm: 1 Test Strips Miscellaneous every morning 03/13/20 20 2019 Inactive 100/container True Metrix Glucose Test Strip RxNorm: 1 Test Strips Miscellaneous QA 02/22/20 20 2019 Inactive 100/container loperamide 2 mg tablet RxNorm: 898225 1 Tablet(s) Oral as needed take one tablet after each loose stool, maximum of 8 tablets in 24 hours 02/22/20 20 2019 Inactive cetirizine 10 mg tablet RxNorm: 7323833 1 Tablet(s) PO daily 01/17/20 20 2019 Inactive loperamide 2 mg tablet RxNorm: 676144 1 Tablet(s) Oral as needed take one tablet after each loose stool, maximum of 8 tablets in 24 hours 01/17/20 20 2019 Inactive quetiapine 100 mg tablet RxNorm: 711098 1 Tablet(s) Oral every night at bedtime 01/17/20 20 2019 Inactive levothyroxine 50 mcg tablet RxNorm: 638882 1 Tablet(s) PO daily 01/17/20 20 2020 Inactive gabapentin 300 mg capsule RxNorm: 227714 1 Capsule(s) PO TID 01/17/20 20 2019 Inactive levothyroxine 50 mcg tablet RxNorm: 128010 1 Tablet(s) PO daily 01/15/20 20 2019 Inactive lisinopril 2.5 mg tablet RxNorm: 564653 1 Tablet(s) PO daily 01/15/20 20 2020 Inactive gabapentin 300 mg capsule RxNorm: 952389 1 Capsule(s) PO TID 01/15/20 20 2019 Inactive cetirizine 10 mg tablet RxNorm: 2989764 1 Tablet(s) PO daily 01/15/20 20 2019 Inactive Singulair 10 mg tablet RxNorm: 153192 1 Tablet(s) PO daily 01/15/20 20 2020 Inactive gentamicin 0.3 % eye drops RxNorm: 998590 1 Drop(s) ophthalmic (eye) four times a day 12/29/19 20 2019 Inactive gentamicin 0.3 % eye drops RxNorm: 885575 1 Drop(s) ophthalmic (eye) four times a day 12/29/19 20 2019 Inactive gentamicin 0.3 % eye drops RxNorm: 853496 1 Drop(s) ophthalmic (eye) four times a day 12/29/19 20 2019 Inactive hydrochlorothiazide 25 mg tablet RxNorm: 549370 1 Tablet(s) Oral every day 12/21/19 20 2019 Inactive Sudafed 12 Hour 120 mg tablet,extended release RxNorm: 2756356 TAKE (1) TABLET BY MOUTH EVERY 12 HOURS NEEDED 12/21/19 20 2019 Inactive loperamide 2 mg tablet RxNorm: 830152 1 Tablet(s) Oral as needed take one tablet after each loose stool, maximum of 8 tablets in 24 hours 12/11/19 20 2019 Inactive loperamide 2 mg tablet RxNorm: 489783 1 Tablet(s) Oral as needed take one tablet after each loose stool, maximum of 8 tablets in 24 hours 12/11/19 20 2019 Inactive atorvastatin 40 mg tablet RxNorm: 273310 1 Tablet(s) Oral every day 11/29/19 20 2020 Inactive quetiapine 100 mg tablet RxNorm: 911799 1 Tablet(s) Oral every night at bedtime 11/28/19 20 2019 Inactive sertraline 100 mg tablet RxNorm: 214862 1 Tablet(s) Oral 11/28/19 20 2019 Inactive omeprazole 20 mg capsule,delayed release RxNorm: 769154 1 Capsule(s) Oral every day 11/20/19 20 2019 Inactive amoxicillin 250 mg capsule RxNorm: 258376 1 Capsule(s) Oral three times a day 11/07/19 20 2019 Inactive multivitamin with iron-mineral tablet RxNorm: 1 Tablet(s) Oral every day 10/29/19 20 2021 Inactive cetirizine 10 mg tablet RxNorm: 3695452 1 Tablet(s) PO daily 10/20/19 20 2019 Inactive This refill negates all other refills of this medication. Please do not auto refill Singulair 10 mg tablet RxNorm: 210591 1 Tablet(s) PO daily 10/20/19 20 2019 Inactive This refill negates all other refills of this medication gabapentin 300 mg capsule RxNorm: 943236 1 Capsule(s) PO TID 10/20/19 20 2019 Inactive lisinopril 2.5 mg tablet RxNorm: 178045 1 Tablet(s) PO daily 10/20/19 20 2019 Inactive levothyroxine 50 mcg tablet RxNorm: 723937 1 Tablet(s) PO daily 10/20/19 20 2019 Inactive This refill negates all other refills of this medication fenugreek seed extract 500 mg capsule RxNorm: 1 Capsule(s) Oral three times a day 10/17/19 20 2021 Inactive hydrochlorothiazide 25 mg tablet RxNorm: 880866 1 Tablet(s) Oral every day 10/17/19 20 2019 Inactive Alcohol Prep Pads RxNorm: 600953 1 Patch TOP QAM 10/16/19 20 2020 Inactive loperamide 2 mg tablet RxNorm: 605279 1 Tablet(s) Oral as needed take one [...] 09/19/202019 Inactive hydrochlorothiazide 25 mg tablet RxNorm: 282902 1 Tablet(s) Oral every day 09/19/202019 Inactive Sudafed 12 Hour 120 mg tablet,extended release RxNorm: 1192109 1 Tablet(s) Oral every 12 hours as needed 09/11/20 19 2018 Inactive omeprazole 20 mg capsule,delayed release RxNorm: 660607 1 Capsule(s) Oral every day 09/07/20 19 2019 Inactive Sudafed 12 Hour 120 mg tablet,extended release RxNorm: 1484917 1 Tablet(s) Oral every 12 hours as needed 09/04/20 19 2018 Inactive pantoprazole 40 mg tablet,delayed release RxNorm: 882355 1 Tablet(s) Oral every day 08/24/202018 Inactive discontinue any other H2Blkr. and PPI albuterol sulfate 2.5 mg/3 mL (0.083 %) solution for nebulization RxNorm: 846606 1 Vial Inhalation every four hours as needed as needed for dyspnea 08/17/20 19 2019 Inactive 60/box. This refill negates all other refills of this medication. Please do not fill early. Please do not auto refill. Symbicort 160 mcg-4.5 mcg/actuation HFA aerosol inhaler RxNorm: 2162537 2 Puff(s) INH BID 08/17/20 19 No Stop Date Active Alcohol Prep Pads RxNorm: 433101 1 Patch TOP QAM 08/17/20 19 2019 Inactive Ventolin HFA 90 mcg/actuation aerosol inhaler RxNorm: 899091 2 Puff(s) INH QID 08/09/20 19 2019 Inactive Please do not fill early. Please do not auto refill. This refill negates all other refills of this medication True Metrix Glucose Test Strip RxNorm: 1 Test Strips Miscellaneous QA 08/09/20 19 2019 Inactive 100/container atorvastatin 40 mg tablet RxNorm: 527421 1 Tablet(s) Oral every day 07/04/20 19 2019 Inactive levmetamfetamine 50 mg nasal inhaler RxNorm: 1 Unit(s) NASAL Q3-4H Do not use more than every 3 hours or 8 times/24hours 06/26/20 19 2021 Inactive Please do not auto refill. This refill negates all other refills of this medication buspirone 7.5 mg tablet RxNorm: 287034 1 Tablet(s) PO BID 06/26/20 19 2020 Inactive This refill negates all other refills of this medication hydrochlorothiazide 12.5 mg tablet RxNorm: 517475 1 Tablet(s) PO QAM 06/26/20 19 2019 Inactive Ventolin HFA 90 mcg/actuation aerosol inhaler RxNorm: 860064 2 Puff(s) INH QID 06/26/20 19 2018 Inactive Please do not fill early. Please do not auto refill. This refill negates all other refills of this medication Singulair 10 mg tablet RxNorm: 544796 1 Tablet(s) PO daily 06/26/20 19 2019 Inactive This refill negates all other refills of this medication cetirizine 10 mg tablet RxNorm: 1855758 1 Tablet(s) PO daily 06/26/20 19 2019 Inactive This refill negates all other refills of this medication. Please do not auto refill levothyroxine 50 mcg tablet RxNorm: 064414 1 Tablet(s) PO daily 06/26/20 19 2019 Inactive This refill negates all other refills of this medication diclofenac sodium 75 mg tablet,delayed release RxNorm: 525854 1 Tablet(s) PO BID 06/26/20 19 2019 Inactive This refill negates all other refills of this medication ranitidine 150 mg tablet RxNorm: 726106 1 Tablet(s) PO BID 06/26/20 19 2018 Inactive This refill negates all other refills of this medication Calcium 600-D3 Plus (mag-zinc) 600 mg calcium-800 unit-50 mg tablet RxNorm: 1 Tablet(s) PO daily take an additonal tablet for itching. 06/26/20 19 2018 Inactive This refill negates all other refills of this medication albuterol sulfate 2.5 mg/3 mL (0.083 %) solution for nebulization RxNorm: 263748 1 Vial INH QID 06/26/20 19 2018 Inactive 60/box. This refill negates all other refills of this medication. Please do not fill early. Please do not auto refill. lisinopril 2.5 mg tablet RxNorm: 960478 1 Tablet(s) PO daily 06/21/20 19 2019 Inactive gabapentin 300 mg capsule RxNorm: 640124 1 Capsule(s) PO TID 06/21/20 19 2019 Inactive atorvastatin 20 mg tablet RxNorm: 840890 1 Tablet(s) PO QHS 06/07/20 19 2018 Inactive This refill negates all other refills of this medication TRUEplus Lancets 30 gauge RxNorm: 1 Lancets Miscellaneous QAM 05/29/20 19 2018 Inactive 100/box gabapentin 300 mg capsule RxNorm: 019561 1 Capsule(s) PO TID 05/03/20 19 2018 Inactive Flintstones Complete (iron) 18 mg iron chewable tablet RxNorm: 1 Tablet(s) PO daily 04/04/202021 Inactive This refill negates all other refills of this medication gabapentin 300 mg capsule RxNorm: 507743 1 Capsule(s) PO TID as needed 02/01/20 19 2018 Inactive True Metrix Glucose Test Strip RxNorm: 1 Test Strips Miscellaneous QAM 02/01/20 19 2018 Inactive 100/container Alcohol Prep Pads RxNorm: 301926 1 Patch TOP QAM 02/01/20 19 2018 Inactive TRUEplus Lancets 30 gauge RxNorm: 1 Lancets Miscellaneous QAM 02/01/20 19 2018 Inactive 100/box lisinopril 2.5 mg tablet RxNorm: 760184 1 Tablet(s) PO daily 12/28/19 19 2018 Inactive ranitidine 150 mg tablet RxNorm: 786118 1 Tablet(s) PO BID 10/21/192018 Inactive This refill negates all other refills of this medication albuterol sulfate 2.5 mg/3 mL (0.083 %) solution for nebulization RxNorm: 321885 1 Vial INH QID 10/21/192018 Inactive 60/box. [...] this medication gabapentin 300 mg capsule RxNorm: 206860 1 Capsule(s) PO TID as needed 10/21/192018 Inactive atorvastatin 20 mg tablet RxNorm: 499742 1 Tablet(s) PO QHS 10/21/19 19 2018 Inactive This refill negates all other refills of this medication trazodone 50 mg tablet RxNorm: 589698 1 Tablet(s) PO QHS 10/21/192018 Inactive This refill negates all other refills of this medication Ventolin HFA 90 mcg/actuation aerosol inhaler RxNorm: 854710 2 Puff(s) INH QID 10/21/19 19 2018 Inactive Please do not fill early. Please do not auto refill. This refill negates all other refills of this medication Calcium 600-D3 Plus 600 mg calcium-800 unit-50 mg tablet RxNorm: 1 Tablet(s) PO daily take an additonal tablet for itching. 10/21/192018 Inactive This refill negates all other refills of this medication Singulair 10 mg tablet RxNorm: 381587 1 Tablet(s) PO daily 10/21/192018 Inactive This refill negates all other refills of this medication buspirone 7.5 mg tablet RxNorm: 024819 1 Tablet(s) PO BID 10/21/192018 Inactive This refill negates all other refills of this medication diclofenac sodium 75 mg tablet,delayed release RxNorm: 391734 1 Tablet(s) PO BID 10/21/192018 Inactive This refill negates all other refills of this medication hydrochlorothiazide 12.5 mg tablet RxNorm: 497241 1 Tablet(s) PO QAM 10/21/192018 Inactive metoprolol succinate ER 50 mg tablet,extended release 24 hr RxNorm: 865800 1 Tablet(s) PO daily 10/21/192018 Inactive This refill negates all other refills of this medication levothyroxine 50 mcg tablet RxNorm: 411350 1 Tablet(s) PO daily 10/21/192018 Inactive This refill negates all other refills of this medication cetirizine 10 mg tablet RxNorm: 9679131 1 Tablet(s) PO daily 10/21/192018 Inactive This refill negates all other refills of this medication. Please do not auto refill Flintstones Complete (iron) 18 mg iron chewable tablet RxNorm: 1 Tablet(s) PO daily 10/21/192018 Inactive This refill negates all other refills of this medication buspirone 7.5 mg tablet RxNorm: 947449 1 Tablet(s) PO BID 10/12/19 19 2018 Inactive cetirizine 10 mg tablet RxNorm: 8897082 1 Tablet(s) PO daily 09/28/20 18 2018 Inactive Guaiasorb DM 10 mg-100 mg/5 mL oral liquid RxNorm: 694801 10 Milliliter(s) PO As needed every 4 hr 09/24/20 18 2018 Inactive Vicks Vaporub 4.7 %-1.2 %-2.6 % topical ointment RxNorm: 4642924 1 Application TOP TID 09/24/20 18 2018 Inactive levmetamfetamine 50 mg nasal inhaler RxNorm: 1 Unit(s) NASAL Q3-4H 09/24/20 18 2017 Inactive sertraline 50 mg tablet RxNorm: 975605 1 Tablet(s) PO daily 09/09/20 18 2018 Inactive Please note dose trazodone 50 mg tablet RxNorm: 526091 1 Tablet(s) PO QHS 09/06/20 18 2018 Inactive sertraline 50 mg tablet RxNorm: 244048 1 Tablet(s) PO daily 09/06/20 18 2017 Inactive amoxicillin 500 mg tablet RxNorm: 460642 1 Tablet(s) PO Q12H 08/31/20 18 2017 Inactive albuterol sulfate 2.5 mg/3 mL (0.083 %) solution for nebulization RxNorm: 940617 1 Vial INH QID 08/10/20 18 2018 Inactive 60/box. Please do not fill early. Please do not auto refill. Prozac 10 mg capsule RxNorm: 451181 1 Capsule(s) PO daily 08/09/20 18 2017 Inactive buspirone 7.5 mg tablet RxNorm: 448883 1 Tablet(s) PO BID 08/09/20 18 2018 Inactive gabapentin 300 mg capsule RxNorm: 449108 1 Capsule(s) PO TID as needed 08/01/20 18 2018 Inactive hydrochlorothiazide 12.5 mg tablet RxNorm: 135676 1 Tablet(s) PO QAM 08/01/20 18 2018 Inactive ranitidine 150 mg tablet RxNorm: 351199 1 Tablet(s) PO BID 08/01/20 18 2018 Inactive Macrobid 100 mg capsule RxNorm: 313182 1 Capsule(s) PO Q12H 06/21/20 18 2017 Inactive Singulair 10 mg tablet RxNorm: 551307 1 Tablet(s) PO daily 06/14/20 18 2018 Inactive Ventolin HFA 90 mcg/actuation aerosol inhaler RxNorm: 8471676 2 Puff(s) INH QID 06/14/20 18 2018 Inactive Singulair 10 mg tablet RxNorm: 248354 1 Tablet(s) PO daily 06/14/20 18 2017 Inactive buspirone 7.5 mg tablet RxNorm: 867900 1 Tablet(s) PO BID 06/14/20 18 2017 Inactive Prozac 10 mg capsule RxNorm: 168810 1 Capsule(s) PO daily 06/14/20 18 2017 Inactive Neilmed Pediatric Sinus Rinse Refill packet RxNorm: 1 Unit Dose NASAL PRN 05/31/20 18 2021 Inactive diclofenac sodium 75 mg tablet,delayed release RxNorm: 190447 1 Tablet(s) PO BID 05/31/20 18 2017 Inactive lisinopril 2.5 mg tablet RxNorm: 144713 1 Tablet(s) PO daily 05/31/20 18 2017 Inactive metoprolol succinate ER 50 mg tablet,extended release 24 hr RxNorm: 929359 1 Tablet(s) PO daily 05/31/20 18 2017 Inactive levothyroxine 50 mcg tablet RxNorm: 619032 1 Tablet(s) PO daily 05/31/20 18 2017 Inactive TRUEplus Lancets 30 gauge RxNorm: 1 Lancets Miscellaneous QAM 05/31/20 18 2017 Inactive 100/box Ventolin HFA 90 mcg/actuation aerosol inhaler RxNorm: 249916 2 Puff(s) INH QID 05/31/20 18 2017 Inactive Aleve 220 mg capsule RxNorm: 2859459 1 Capsule(s) PO BID 05/31/20 18 2018 Inactive ranitidine 150 mg tablet RxNorm: 075423 1 Tablet(s) PO BID 05/31/20 18 2017 Inactive gabapentin 300 mg capsule RxNorm: 163885 1 Capsule(s) PO TID as needed 05/31/20 18 2017 Inactive atorvastatin 20 mg tablet RxNorm: 039695 1 Tablet(s) PO QHS 05/31/20 18 2017 Inactive True Metrix Glucose Test Strip RxNorm: 1 Test Strips Miscellaneous QAM 05/31/20 18 2017 Inactive 50/container Calcium 600-D3 Plus 600 mg calcium-800 unit-50 mg tablet RxNorm: 1 Tablet(s) PO daily take an additonal tablet for itching. 05/31/20 18 2017 Inactive hydrochlorothiazide 12.5 mg tablet RxNorm: 983040 1 Tablet(s) PO QAM 05/31/20 18 2017 Inactive Flintstones Complete (iron) 18 mg iron chewable tablet RxNorm: 1 Tablet(s) PO daily 05/31/20 18 2017 Inactive d-mannose oral powder RxNorm: PO 18 2021 Inactive True Metrix Glucose Meter RxNorm: miscellaneous 08/17/20 19 2018 Inactive sertraline 50 mg tablet RxNorm: 762524 1 Tablet(s) PO daily 11/28/19 20 2019 Inactive loperamide 2 mg tablet RxNorm: 675802 oral 09/29/20 19 2018 Inactive Symbicort 160 mcg-4.5 mcg/actuation HFA aerosol inhaler RxNorm: 1632703 2 Puff(s) INH BID 08/17/20 19 2018 Inactive Medication Administered No Medication Administered data Results Observation Observation Code Item Item Code Result Date Service Location COMPLETE CBC W/ DIFF WBC 70171 WBC 6690-2 7.1 K/ul 022 [facility] [address] [place] [address] COMPLETE CBC W/ DIFF WBC 44442 RBC 789-8 4.43 M/uL [facility] [address] [place] [address] COMPLETE CBC W/ DIFF WBC 67122 Hemoglobin 718-7 11.9 g/dL [facility] [address] [place] [address] COMPLETE CBC W/ DIFF WBC 60705 Hematocrit 4544-3 36.0 % [facility] [address] [place] [address] COMPLETE CBC W/ DIFF WBC 72206 MCV 787-2 81.3 fL [facility] [address] [place] [address] COMPLETE CBC W/ DIFF WBC 52413 MCH 785-6 26.8 pg [facility] [address] [place] [address] COMPLETE CBC W/ DIFF WBC 59955 MCHC 786-4 33.0 g/dL [facility] [address] [place] [address] COMPLETE CBC W/ DIFF WBC 85575 RDW 788-0 13.9 % [facility] [address] [place] [address] COMPLETE CBC W/ DIFF WBC 34990 Platelet Count 777-3 367 K/uL [facility] [address] [place] [address] COMPLETE CBC W/ DIFF WBC 34733 MPV 04951-3 8.8 fL [facility] [address] [place] [address] COMPLETE CBC W/ DIFF WBC 34601 Neutrophils % 770-8 65.5 % [facility] [address] [place] [address] COMPLETE CBC W/ DIFF WBC 57219 Lymphocytes % 736-9 25.8 % [facility] [address] [place] [address] [id number] COMPLETE CBC W/ DIFF WBC 48262 Monocytes % 5905-5 7.1 % [facility] [address] [place] [address] 86792 COMPLETE CBC W/ DIFF WBC 92594 Eosinophils % 713-8 1.0 % [facility] [address] [place] [address] 20241 COMPLETE CBC W/ DIFF WBC 47381 Basophils% 706-2 0.6 % [facility] [address] [place] [address] 70261 COMPLETE CBC W/ DIFF WBC 50251 Absolute Neutrophil 751-8 4651 /ul 022 [facility] [address] [place] [address] COMPLETE CBC W/ DIFF WBC 46642 Absolute Lymphocyte 77214-0 1832 /ul 022 [facility] [address] [place] [address] COMPLETE CBC W/ DIFF WBC 02453 Absolute Monocyte 742-7 504 /ul 022 [facility] [address] [place] [address] COMPLETE CBC W/ DIFF WBC 24615 Absolute Eosinophil 711-2 71 /ul 022 [facility] [address] [place] [address] COMPLETE CBC W/ DIFF WBC 28182 Absolute Basophil 704-7 43 /ul 022 [facility] [address] [place] [address] 52456 VITAMIN B-12 28669 Vitamin B12 2132-9 184 pg/mL 11/03 022 [facility] [address] [place] [address] CHEM 14 (METABOLIC PANEL) 81068 Glucose 2345-7 101 mg/dL 022 [facility] [address] [place] [address] 04729 CHEM 14 (METABOLIC PANEL) 57987 BUN 3094-0 14 mg/dL [facility] [address] [place] [address] 44571 CHEM 14 (METABOLIC PANEL) 43636 Creatinine 2160-0 0.7 mg/dL 022 [facility] [address] [place] [address] 06859 CHEM 14 (METABOLIC PANEL) 48034 BUN/Creat Ratio 3097-3 21.5 022 [facility] [address] [place] [address] 97728 CHEM 14 (METABOLIC PANEL) 42617 GFR Estimated 67384-7 117 mL/min/1. 73m2 022 [facility] [address] [place] [address] CHEM 14 (METABOLIC PANEL) 12574 Sodium 2951-2 140 mmol/L 022 [facility] [address] [place] [address] 75919 CHEM 14 (METABOLIC PANEL) 21107 Potassium 2823-3 4.6 mmol/L 022 [facility] [address] [place] [address] 24614 CHEM 14 (METABOLIC PANEL) 89487 Chloride 2075-0 106 mmol/L [facility] [address] [place] [address] 36710 CHEM 14 (METABOLIC PANEL) 45217 Total CO2 2028-9 26 mmol/L [facility] [address] [place] [address] CHEM 14 (METABOLIC PANEL) 24956 Anion Gap 1863-0 12.6 mEq/L [facility] [address] [place] [address] CHEM 14 (METABOLIC PANEL) 09248 Calculated Serum Osmolality 96212-2 291 mOsm/kg [facility] [address] [place] [address] CHEM 14 (METABOLIC PANEL) 86857 Albumin 02765-0 3.6 g/dL [facility] [address] [place] [address] CHEM 14 (METABOLIC PANEL) 50514 Total Protein 2885-2 6.8 g/dL [facility] [address] [place] [address] 59497 CHEM 14 (METABOLIC PANEL) 88218 Globulin 2336-6 3.2 g/dL [facility] [address] [place] [address] 84567 CHEM 14 (METABOLIC PANEL) 67968 Albumin/Globulin Ratio 1759-0 1.1 [facility] [address] [place] [address] 71105 CHEM 14 (METABOLIC PANEL) 36671 ALK PHOS 6768-6 57.00 U/L [facility] [address] [place] [address] 31717 CHEM 14 (METABOLIC PANEL) 76361 SGOT/AST 1920-8 19 U/L [facility] [address] [place] [address] CHEM 14 (METABOLIC PANEL) 52766 SGPT/ALT 1743-4 32 U/L [facility] [address] [place] [address] CHEM 14 (METABOLIC PANEL) 38299 Total Bilirubin 1975-2 0.3 mg/dL [facility] [address] [place] [address] 20538 CHEM 14 (METABOLIC PANEL) 65784 Calcium 40678-6 9.2 mg/dL [facility] [address] [place] [address] 39718 CHEM 14 (METABOLIC PANEL) 69332 Corrected Calcium 88041-3 9.7 mg/dL 11/03 022 [facility] [address] [place] [address] DIRECT LDL - CHOL 73676 LDL-Direct 50270-1 181 mg/dL 0 022 [facility] [address] [place] [address] HDL - CHOL 10020 HDL 2085-9 40 mg/dL 022 [facility] [address] [place] [address] HDL - CHOL 18400 CHD 98763-7 16 % 022 [facility] [address] [place] [address] [id number] IN [facility] Glyco HGB A1C 61914-2 5.6 % 022 [facility] [address] [place] [address] [id number] IN [facility] eAG 25629-4 114 mg/dL 022 [facility] [address] [place] [address] PREALBUMIN 74788 Prealbumin 60935-4 27 mg/dL 022 [facility] [address] [place] [address] MAGNESIUM 39201 Magnesium 00046-9 2.3 mg/dL 022 [facility] [address] [place] [address] PTH 37129 PTH 2731-8 133.5 pg/mL 022 [facility] [address] [place] [address] 24260 TSH 87369 TSH 17846-8 1.390 uIU/mL 022 [facility] [address] [place] [address] VITAMIN D 24417 Vitamin D 94522-6 20.4 ng/mL 022 [facility] [address] [place] [address] CHOLESTEROL 24053 Cholesterol 2093-3 251 mg/dL 022 [facility] [address] [place] [address] TRIGLYCERIDES 76043 Triglycerides 2571-8 193 mg/dL 022 [facility] [address] [place] [address] TRIGLYCERIDES 95360 VLDL 23854-7 39 mg/dL 022 [facility] [address] [place] [address] Procedures Procedure Codes Date Patient Health Questionnaire CPT-4: DPHQ 01/2022 Frailty Screening CPT-4: SFD 05/20/2021 Hypertension CPT-4: HTN 04/01/2021 Tobacco Assessment/Screening CPT-4: TCA 08/2021 Patient Health Questionnaire CPT-4: DPHQ 08/2021 Mini Mental State Exam CPT-4: DMMA Annual Wellness Visit (Subsequent Visit) CPT-4: G0439 01/13/2021 Advanced Care Planning CPT-4: VACP Fall Risk Assessment SNOMED CT: 57300633 4 CPT-4: DFRA 01/13/2021 [place] Assessment CPT-4: DSWA 12/01 Urinalysis, dip stick CPT-4: 91598 09/24/2020 Patient Health Questionnaire CPT-4: DPHQ Electrocardiogram CPT-4: 43075 05/14/2020 Tobacco Assessment/Screening CPT-4: TCA Fall Risk Assessment SNOMED CT: 80719381 4 CPT-4: DFRA 01/01/2020 Functional Assessment CPT-4: DFA 01/01/2020 [place] Assessment CPT-4: DSWA 11/04 Patient Health Questionnaire CPT-4: DPHQ [place] Assessment CPT-4: DSWA 10/03 Hypertension CPT-4: HTN 10/17/2019 Fall Risk Assessment SNOMED CT: 15327101 4 CPT-4: DFRA 09/19/2019 Functional Assessment CPT-4: DFA 09/19/2019 Urinalysis, dip stick CPT-4: 79807 06/21/2019 Tobacco Assessment/Screening CPT-4: TCA Patient Health Questionnaire CPT-4: DPHQ AHA/REBECCA Classification Assessment CPT-4: DAHA 04/25/2019 Controlled Substance Report CPT-4: CTRSU 04/03 Urinalysis, dip stick CPT-4: 55427 03/28/2019 Urinalysis, dip stick CPT-4: 74750 03/28/2019 T6T-Sjhbjnlhzwjlzvh CPT-4: 47078 Unknown B3Z-Ksvrnwokmoxfcmc CPT-4: 59259 Unknown A1K-Odayjhszzgovyxx CPT-4: 47337 Unknown U9N-Ghcocqfejimbuds CPT-4: 11262 Unknown L4P-Yutrhwxeatrdrmt CPT-4: 28509 Unknown L1N-Rkwlezzujlnhvbj CPT-4: 48638 Unknown V6F-Enjcfmubxakzptg CPT-4: 01344 Unknown O3P-Vtjhgbndezbhkeh CPT-4: 45681 Unknown Gynecology Referral SNOMED CT: 016211036 CPT-4: R14 Unknown Vital Signs Date Vital 11/02/2021 Blood Pressure 1: 108/86 Code: 8480-6 BMI: 55.2 Code: 50791-0 Heart Rate 1: 81 bpm Height: 4'11 Code: 8302-2 Respiratory Rate: 16 bpm SpO2: 98% Temperature: 36.3 (C) / 97.3 (F) Weight: 273 lbs 6 oz Code: 50011-6 Reason For Visit Reason For Visit Effective Dates Notes diabetes mellitus 11/02/2021 sleep apnea-obstruction 11/02/2021 Encounters Encounter Performer Location Location Address Codes Magdi e ([id number]) HOME VISIT EST PATIENT Diagnosis: Adult BMI 50.0-59.9 kg/sq m[ICD10: Z68.43] Diagnosis: Type 2 diabetes mellitus with peripheral neuropathy[ICD10: E11.42] Diagnosis: Syncope and collapse[ICD10: R55] Diagnosis: Family history of seizures[ICD10: Z84.89] Diagnosis: Obstructive sleep apnea (adult) (pediatric)[ICD10: G47.33] [facility] [address] [place] [address] 19694 CPT-4: 04620 11/02/2021 Plan of Care Planned Activity Notes Codes Status Date Patient Education: Patient Medication Summary Completed 11/02/2021 Patient Education: Diabetes Complete d 11/02/2021 Appointment: Chivo Bishop WPtel: [address] [place] [address] [place] E410 10/07/2021 Appointment: Chivo Bishop WPtel: [address] [place] [address] ETV 09/10/2021 Appointment: Chivo Bishop WPtel: [address] [place] [address] [place] ETV 08/13/2021 Appointment: Chivo Bishoptel: [address] [place] [address] ETV 07/06/2021 Appointment: Chivo Bishop WPtel: [address] [place] [address] PHTV 06/10/2021 Appointment: Anna Culver WPtel: [address] [place] [address] ETV 06/02/2021 Appointment: Chivo Bishop WPtel: [address] [place] [address] ETV 05/20/2021 Appointment: Anna Culver WPtel: [address] [place] [address] ETV 04/28/2021 Appointment: Chivo Bishop WPtel: [address] [place] [address] ETV 04/15/2021 Appointment: Anna Culver WPtel: [address] [place] [address] E410 04/01/2021 Appointment: Anna Culver WPtel: [address] [place] [address] ETV 03/24/2021 Appointment: Anna Culver WPtel: [address] [place] [address] ETV 03/13/2021 Appointment: Anna Culver WPtel: [address] [place] [address] E410 02/11/2021 Appointment: Chivo Bishop WPtel: [address] [place] [address] E410 01/29/2021 Appointment: Anna Culver WPtel: [address] [place] [address] ETV 01/13/2021 Appointment: Anna Culver WPtel: [id number] [place] [address] [place] E410 12/17/2020 Appointment: Chivo Bishop WPtel: [address] [place] [address] ETV 11/28/2020 Appointment: Anna Culver WPtel: [address] [place] [address] [place] ETV 11/24/2020 Appointment: Anna Culver WPtel: [address] [place] [address] [place] E410 10/29/2020 Appointment: Anna Culver WPtel: [address] [place] [address] E410 09/24/2020 Appointment: Anna Culver WPtel: [address] [place] [address] [place] ETV 08/26/2020 Appointment: Anna Culvre WPtel: [address] [place] [address] ETV 08/19/2020 Appointment: Anna Culver WPtel: [address] [place] [address] [place] ETV 07/22/2020 Appointment: Anna Culver WPtel: [address] [place] [address] [place] ETV 07/08/2020 Appointment: Gianna Birmingham: [address] [facility] [address] [id number] [place] ECHO 07/02/2020 Appointment: Anna Culver WPtel: [address] [place] [address] [place] E452 06/11/2020 Appointment: Anna Culver WPtel: [address] [place] [address] E452 05/14/2020 Appointment: Anna Culver WPtel: [address] E452 04/17/2020 Appointment: Anna Culver WPtel: [address] [place] [address] E452 03/21/2020 Appointment: Anna Culver WPtel: [address] [place] [address] E452 02/14/2020 Appointment: Anna Culver WPtel: [address] [place] [address] E452 01/24/2020 Appointment: Anna Culver WPtel: [address] [place] [address] E452 01/01/2020 Appointment: Anna Culver WPtel: [address] [place] [address] E452 11/28/2019 Appointment: Anna Culver WPtel: [address] [place] [address] E452 10/17/2019 Appointment: Anna Culver WPtel: [address] [place] [address] E452 09/19/2019 Appointment: Sudha Hernadez WPtel: [address] [facility] [id number] E452 07/04/2019 Appointment: Sudha Hernadez WPtel: [address] [facility] [id number] E452 06/21/2019 Appointment: Charlene Oropeza WPtel: [address] [facility] [id number] E452 05/24/2019 Appointment: Mallory Delgado E452 04/27/2019 Appointment: Charlene Oropeza WPtel: [address] [facility] [id number] E452 04/25/2019 Appointment: Rasta Palafox WPtel: [address] [facility] 202b [id number] E452 03/28/2019 Appointment: Rasta Palafox WPtel: [address] [facility] 202b [id number] E452 02/14/2019 Appointment: Rasta Palafox WPtel: [address] [facility] b [id number] E452 01/31/2019 Appointment: Rasta Palafox WPtel: [address] [facility] b [id number] E420 12/27/2018 Referral: Pending Gynecology Referral Information Referral Processed Referral: Pending Pulmonolog y Referral Information Referral Processed Referral: Pending Psychiatry Referral Information Referral Initiated Referral: Pending Respirator y Services Referral Information Referral Initiated Referral: Pending Ophthalmology Referral Information Referral Initiated Referral: [facility] WPtel: [address] [place] [address] Blow Molding Machine Operator placed a call out to the patient to notify her that it has been recommended that she be seen by 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 Patient agreed to be seen, does not have a provider of choice and no transportation issues. Blow Molding Machine Operator faxed referral and clinical notes to [facility] in [place], [place] near the patient's home. Patient to [...] seen and prefers a provider in the [place] or [place] area. Blow Molding Machine Operator placed a call out to everyone listed in the area and the only location that was able to accept the patient's insurance was [place] [address] [place] [address] and spoke with Maylin. Maylin asked that the patient's referral, face sheet and visit notes be faxed to . Blow Molding Machine Operator faxed over requested documents. Patient appointment confirmation letter generated and mailed to her home address. Patient to call to schedule an appointment. Processed Referral: Kathryn Angeles y WPtel: [address] [facility] [address] [place], [place] [id number] Patient notified that it has been advised that she be seen by Neurology. Patient agreed to be seen and prefers to be seen by a provider in the [place], [place] area. Patient denies any concerns with transportation, and prefers to schedule her own appointment. Blow Molding Machine Operator placed a call out to [facility] and spoke with Neeraj Mcfarland: who confirmed that their office is able to accept new patients and the patient's insurance. After confirming the providers fax number, manual writer faxed over the patient's referral, and [...]
--- OUTSIDE RECORDS SUMMARY | 2021-11-03 20:00 | XMS_ITS | CCD ---
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 Computer Training Specialist Name Role Phone Palomo KING, Anna Primary Care Provider Unav ailable Unavailable Chronic Care Management Unavaila ble Summary Purpose DataExchange Insurance Providers Payer name Policy type / Coverage type Covered libertarian ID Effective Begin Date Effective End Date SUKI MAYO [id number] Unknown Unknown Family history Mother Diagnosis Age [...] Unknown Disability 05/31/[address]: 519398265 Has never s moked or chewed tobacco 05/31/[address]: 113140252 Never drinks alco hol 05/31/2018 Has the patient ever used illegal drugs? Unknown Has never used illegal drugs 05/31/2018 DNR Order/ Advanced Directive Unknown Full Code 05/31/2018 Allergies, Adverse Reactions, Alerts Substance Reaction Codes Entered Date Inactivated Date Status OxyContin itch, RxNorm: 783210 01/13/2021 No Inactive Da te Active *No [...] ICD-10: R51 ICD-9: 784.0 10/03/2018 Inactive Other half-way (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 ICD-10: Z79.899 ICD-9: V58.69 04/25/2019 Inactive Type 2 diabetes mellitus wit hout complications ICD-10: E11.9 ICD-9: 250.00 10/03/2018 Inactive Wheezing ICD-10: R06.2 ICD-9: 786.07 08/08/2018 Inactive Abnormal urine finding ICD-10: R82.90 ICD-9: 791.9 09/24/2020 Resolved Abrasion of toe ICD-10: S90.416A ICD-9: 917.0 02/14/2020 Resolved [place] ICD-10: H10.029 ICD-9: 372.03 12/29/2019 Resolved [...] unspecified ICD-10: R60.9 ICD-9: 782.3 07/11/2018 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) ICD-10: Z79.1 ICD-9: V58.64 06/13/2018 Active Medications Medication Codes Instructions Start Date Stop Date Status Fill Instructions Ozempic 0.25 mg or 0.5 mg (2 mg/1.5 mL) subcutaneous pen injector RxNorm: 9569156 inject 0.5 milligrams subcutaneously every week 022 2021 Inactive Ozempic 0.25 mg or 0.5 mg (2 mg/1.5 mL) subcutaneous pen injector RxNorm: 7391250 Take 0.5 Capsule(s) Injection once a week 2021 Inactive omeprazole 20 mg capsule,delayed release RxNorm: 925042 Take 1 Capsule(s) Oral every evening 2020 Inactive Ozempic 0.25 mg or 0.5 mg (2 mg/1.5 mL) subcutaneous pen injector RxNorm: 0078733 Take 0.25 Milligram(s) Subcutaneous once a week 2021 Inactive Easy Touch Alcohol Prep Pads RxNorm: 147205 USE DIRECTED EACH MORNING 2021 Inactive Probiotic 10 billion cell capsule RxNorm: 7759951 Take 1 Capsule(s) Oral every day 2021 Inactive levothyroxine 50 mcg tablet RxNorm: 024051 Take 1 Tablet(s) Oral every day 2020 Inactive Acid Primer Supervisor (famotidine) 20 mg tablet RxNorm: 425250 Take 1 Tablet(s) Oral every morning 2020 Inactive Heartburn Relief (famotidine) 10 mg tablet RxNorm: 802317 Take 1 Tablet(s) Oral QAM 2020 Inactive levothyroxine 50 mcg tablet RxNorm: 707678 Take 1 Tablet(s) Oral QD 2020 Inactive metformin 1,000 mg tablet RxNorm: 945251 1 Tablet(s) Oral two times a day 2021 Inactive Singulair 10 mg tablet RxNorm: 186745 TAKE (1) TABLET BY MOUTH DAILY 10/14/2 021 2020 Inactive lisinopril 2.5 mg tablet RxNorm: 056336 Take 1 Tablet(s) Oral every day 021 2020 Inactive hydrochlorothiazide 25 mg tablet RxNorm: 414852 Take 1 Tablet(s) Oral every day 021 2020 Inactive ondansetron 4 mg disintegrating tablet RxNorm: 100912 1 Tablet(s) Oral two times a day 021 2020 Inactive Sudafed 12 Hour 120 mg tablet,extended release RxNorm: 8962503 TAKE 1 TABLET BY MOUTH EVERY 12 HOURS NEEDED 021 2021 Inactive Heartburn Relief (famotidine) 10 mg tablet RxNorm: 062697 Take 1 Tablet(s) Oral every morning 021 2020 Inactive omeprazole 20 mg capsule,delayed release RxNorm: 608130 1 Capsule(s) Oral every evening 021 2020 Inactive sertraline 100 mg tablet RxNorm: 327195 2 Tablet(s) Oral every day 021 2020 Inactive levothyroxine 50 mcg tablet RxNorm: 952364 TAKE (1) TABLET BY MOUTH DAILY 021 2020 Inactive metformin 500 mg tablet RxNorm: 557474 1 Tablet(s) Oral two times a day take with 500mg to equal 1000mg 021 2020 Inactive gabapentin 300 mg capsule RxNorm: 509985 TAKE 1 CAPSULE BY MOUTH THREE TIMES A DAY 021 2020 Inactive lisinopril 2.5 mg tablet RxNorm: 864196 TAKE 1 TABLET BY MOUTH DAILY 021 2020 Inactive gabapentin 300 mg capsule RxNorm: 143148 TAKE 1 CAPSULE BY MOUTH THREE TIMES A DAY 021 2020 Inactive Singulair 10 mg tablet RxNorm: 204410 TAKE (1) TABLET BY MOUTH DAILY 021 2020 Inactive metformin 1,000 mg tablet RxNorm: 822049 1 Tablet(s) Oral two times a day 021 2020 Inactive atorvastatin 40 mg tablet RxNorm: 989335 1 Tablet(s) Oral every day 021 2020 Inactive omeprazole 20 mg capsule,delayed release RxNorm: 102144 1 Capsule(s) Oral every evening 021 2020 Inactive famotidine 10 mg tablet RxNorm: 020850 1 Tablet(s) Oral every morning 021 2020 Inactive Alcohol Prep Pads RxNorm: 558927 USE EACH MORNING 021 2020 Inactive omeprazole 20 mg capsule,delayed release RxNorm: 452284 1 Capsule(s) Oral two times a day 2021 Inactive omeprazole 20 mg capsule,delayed release RxNorm: 028741 TAKE 1 CAPSULE BY MOUTH EVERY DAY 2021 Inactive Macrobid 100 mg capsule RxNorm: 842268 1 Capsule(s) Oral every 12 hours with food 2020 Inactive omeprazole 20 mg capsule,delayed release RxNorm: 078952 1 Capsule(s) Oral two times a day 2021 Inactive metformin 1,000 mg tablet RxNorm: 368705 1 Tablet(s) Oral two times a day 2020 Inactive start on September 11, 2020 metformin 500 mg tablet RxNorm: 786532 1 Tablet(s) Oral two times a day take with 500mg to equal 1000mg 2019 Inactive gabapentin 300 mg capsule RxNorm: 879903 TAKE 1 CAPSULE BY MOUTH THREE TIMES DAILY 2020 Inactive cetirizine 10 mg tablet RxNorm: 2613722 TAKE (1) TABLET BY MOUTH DAILY 020 2020 Inactive metformin 500 mg tablet RxNorm: 415872 1 Tablet(s) Oral two times a day 2019 Inactive loperamide 2 mg tablet RxNorm: 158540 1 Tablet(s) Oral as needed take one tablet after each loose stool, maximum of 8 tablets in 24 hours 020 2021 Inactive Sudafed 12 Hour 120 mg tablet,extended release RxNorm: 0911182 TAKE 1 TABLET BY MOUTH EVERY 12 HOURS NEEDED 020 2019 Inactive hydrochlorothiazide 25 mg tablet RxNorm: 958634 TAKE (1) TABLET BY MOUTH EVERY DAY 020 2019 Inactive omeprazole 20 mg capsule,delayed release RxNorm: 521994 TAKE 1 CAPSULE BY MOUTH EVERY DAY 020 2020 Inactive metformin 500 mg tablet RxNorm: 757117 1 Tablet(s) Oral every day 2019 Inactive True Metrix Glucose Test Strip RxNorm: 1 Test Strips Miscellaneous two times a day as needed No Stop Date Active metformin 500 mg tablet RxNorm: 070791 1 Tablet(s) Oral every day 020 2019 Inactive diclofenac sodium 75 mg tablet,delayed release RxNorm: 504859 1 Tablet(s) PO BID 2021 Inactive This refill negates all other refills of this medication Sudafed 12 Hour 120 mg tablet,extended release RxNorm: 9359215 TAKE 1 TABLET BY MOUTH EVERY 12 HOURS NEEDED 020 2019 Inactive True Metrix Glucose Test Strip RxNorm: 1 Test Strips Miscellaneous every morning 020 2019 Inactive 100/container True Metrix Glucose Test Strip RxNorm: 1 Test Strips Miscellaneous QA 020 2019 Inactive 100/container loperamide 2 mg tablet RxNorm: 775276 1 Tablet(s) Oral as needed take one tablet after each loose stool, maximum of 8 tablets in 24 hours 020 2019 Inactive cetirizine 10 mg tablet RxNorm: 5319691 1 Tablet(s) PO daily 020 2019 Inactive loperamide 2 mg tablet RxNorm: 236504 1 Tablet(s) Oral as needed take one tablet after each loose stool, maximum of 8 tablets in 24 hours 2019 Inactive quetiapine 100 mg tablet RxNorm: 205603 1 Tablet(s) Oral every night at bedtime 2019 Inactive levothyroxine 50 mcg tablet RxNorm: 048247 1 Tablet(s) PO daily 2020 Inactive gabapentin 300 mg capsule RxNorm: 916156 1 Capsule(s) PO TID 2019 Inactive levothyroxine 50 mcg tablet RxNorm: 090051 1 Tablet(s) PO daily 2019 Inactive lisinopril 2.5 mg tablet RxNorm: 978962 1 Tablet(s) PO daily 2020 Inactive gabapentin 300 mg capsule RxNorm: 355056 1 Capsule(s) PO TID 2019 Inactive cetirizine 10 mg tablet RxNorm: 4620312 1 Tablet(s) PO daily 2019 Inactive Singulair 10 mg tablet RxNorm: 255856 1 Tablet(s) PO daily 2020 Inactive gentamicin 0.3 % eye drops RxNorm: 667581 1 Drop(s) ophthalmic (eye) four times a day 2019 Inactive gentamicin 0.3 % eye drops RxNorm: 255496 1 Drop(s) ophthalmic (eye) four times a day 2019 Inactive gentamicin 0.3 % eye drops RxNorm: 581295 1 Drop(s) ophthalmic (eye) four times a day 2019 Inactive hydrochlorothiazide 25 mg tablet RxNorm: 106169 1 Tablet(s) Oral every day 2019 Inactive Sudafed 12 Hour 120 mg tablet,extended release RxNorm: 9890236 TAKE (1) TABLET BY MOUTH EVERY 12 HOURS NEEDED 2019 Inactive loperamide 2 mg tablet RxNorm: 005333 1 Tablet(s) Oral as needed take one tablet after each loose stool, maximum of 8 tablets in 24 hours 2019 Inactive loperamide 2 mg tablet RxNorm: 300730 1 Tablet(s) Oral as needed take one tablet after each loose stool, maximum of 8 tablets in 24 hours 2019 Inactive atorvastatin 40 mg tablet RxNorm: 521547 1 Tablet(s) Oral every day 2020 Inactive quetiapine 100 mg tablet RxNorm: 583808 1 Tablet(s) Oral every night at bedtime 2019 Inactive sertraline 100 mg tablet RxNorm: 975431 1 Tablet(s) Oral 2019 Inactive omeprazole 20 mg capsule,delayed release RxNorm: 093138 1 Capsule(s) Oral every day 2019 Inactive amoxicillin 250 mg capsule RxNorm: 728702 1 Capsule(s) Oral three times a day 2019 Inactive multivitamin with iron-mineral tablet RxNorm: 1 Tablet(s) Oral every day 2021 Inactive cetirizine 10 mg tablet RxNorm: 5599659 1 Tablet(s) PO daily 2019 Inactive This refill negates all other refills of this medication. Please do not auto refill Singulair 10 mg tablet RxNorm: 223807 1 Tablet(s) PO daily 2019 Inactive This refill negates all other refills of this medication gabapentin 300 mg capsule RxNorm: 479985 1 Capsule(s) PO TID 2019 Inactive lisinopril 2.5 mg tablet RxNorm: 065103 1 Tablet(s) PO daily 2019 Inactive levothyroxine 50 mcg tablet RxNorm: 450648 1 Tablet(s) PO daily 2019 Inactive This refill negates all other refills of this medication fenugreek seed extract 500 mg capsule RxNorm: 1 Capsule(s) Oral three times a day 2021 Inactive hydrochlorothiazide 25 mg tablet RxNorm: 666935 1 Tablet(s) Oral every day 2019 Inactive Alcohol Prep Pads RxNorm: 781176 1 Patch TOP QAM 2020 Inactive loperamide 2 mg tablet RxNorm: 668866 1 Tablet(s) Oral as needed take one tablet after each loose stool not to exceed 8 tablets a day 2018 Inactive Calcium 600-D3 Plus (mag-zinc) 600 mg calcium-800 unit-50 mg tablet RxNorm: 1 Tablet(s) PO daily take an additonal tablet for itching. 2021 Inactive This refill negates all other refills of this medication TRUEplus Lancets 30 gauge RxNorm: 1 Lancets Miscellaneous QA 2019 Inactive 100/box fenugreek seed extract 500 mg capsule RxNorm: 1 Capsule(s) Oral three times a day 2019 Inactive hydrochlorothiazide 25 mg tablet RxNorm: 589877 1 Tablet(s) Oral every day 2019 Inactive Sudafed 12 Hour 120 mg tablet,extended release RxNorm: 5381199 1 Tablet(s) Oral every 12 hours as needed 2018 Inactive omeprazole 20 mg capsule,delayed release RxNorm: 212304 1 Capsule(s) Oral every day 2019 Inactive Sudafed 12 Hour 120 mg tablet,extended release RxNorm: 7051596 1 Tablet(s) Oral every 12 hours as needed 2018 Inactive pantoprazole 40 mg tablet,delayed release RxNorm: 075508 1 Tablet(s) Oral every day 2018 Inactive discontinue any other H2Blkr. and PPI albuterol sulfate 2.5 mg/3 mL (0.083 %) solution for nebulization RxNorm: 169396 1 Vial Inhalation every four hours as needed as needed for dyspnea 2019 Inactive 60/box. This refill negates all other refills of this medication. Please do not fill early. Please do not auto refill. Symbicort 160 mcg-4.5 mcg/actuation HFA aerosol inhaler RxNorm: 8057304 2 Puff(s) INH BID No Stop Date Active Alcohol Prep Pads RxNorm: 532451 1 Patch TOP QAM 019 2019 Inactive Ventolin HFA 90 mcg/actuation aerosol inhaler RxNorm: 397208 2 Puff(s) INH QID 019 2019 Inactive Please do not fill early. Please do not auto refill. This refill negates all other refills of this medication True Metrix Glucose Test Strip RxNorm: 1 Test Strips Miscellaneous QAM 019 2019 Inactive 100/container atorvastatin 40 mg tablet RxNorm: 218859 1 Tablet(s) Oral every day 2019 Inactive levmetamfetamine 50 mg nasal inhaler RxNorm: 1 Unit(s) NASAL Q3-4H Do not use more than every 3 hours or 8 times/24hours 019 2021 Inactive Please do not auto refill. This refill negates all other refills of this medication buspirone 7.5 mg tablet RxNorm: 272300 1 Tablet(s) PO BID 019 2020 Inactive This refill negates all other refills of this medication hydrochlorothiazide 12.5 mg tablet RxNorm: 340715 1 Tablet(s) PO QAM 019 2019 Inactive Ventolin HFA 90 mcg/actuation aerosol inhaler RxNorm: 851539 2 Puff(s) INH QID 019 2018 Inactive Please do not fill early. Please do not auto refill. This refill negates all other refills of this medication Singulair 10 mg tablet RxNorm: 679840 1 Tablet(s) PO daily 019 2019 Inactive This refill negates all other refills of this medication cetirizine 10 mg tablet RxNorm: 7894804 1 Tablet(s) PO daily 019 2019 Inactive This refill negates all other refills of this medication. Please do not auto refill levothyroxine 50 mcg tablet RxNorm: 776452 1 Tablet(s) PO daily 019 2019 Inactive This refill negates all other refills of this medication diclofenac sodium 75 mg tablet,delayed release RxNorm: 938491 1 Tablet(s) PO BID 019 2019 Inactive This refill negates all other refills of this medication ranitidine 150 mg tablet RxNorm: 019430 1 Tablet(s) PO BID 019 2018 Inactive This refill negates all other refills of this medication Calcium 600-D3 Plus (mag-zinc) 600 mg calcium-800 unit-50 mg tablet RxNorm: 1 Tablet(s) PO daily take an additonal tablet for itching. 2018 Inactive This refill negates all other refills of this medication albuterol sulfate 2.5 mg/3 mL (0.083 %) solution for nebulization RxNorm: 124333 1 Vial INH QID 2018 Inactive 60/box. This refill negates all other refills of this medication. Please do not fill early. Please do not auto refill. lisinopril 2.5 mg tablet RxNorm: 439070 1 Tablet(s) PO daily 019 2019 Inactive gabapentin 300 mg capsule RxNorm: 986188 1 Capsule(s) PO TID 019 2019 Inactive atorvastatin 20 mg tablet RxNorm: 019570 1 Tablet(s) PO QHS 2018 Inactive This refill negates all other refills of this medication TRUEplus Lancets 30 gauge RxNorm: 1 Lancets Miscellaneous QAM 019 2018 Inactive 100/box gabapentin 300 mg capsule RxNorm: 290764 1 Capsule(s) PO TID 019 2018 Inactive Flintstones Complete (iron) 18 mg iron chewable tablet RxNorm: 1 Tablet(s) PO daily 019 2021 Inactive This refill negates all other refills of this medication gabapentin 300 mg capsule RxNorm: 344813 1 Capsule(s) PO TID as needed 019 2018 Inactive True Metrix Glucose Test Strip RxNorm: 1 Test Strips Miscellaneous QAM 2018 Inactive 100/container Alcohol Prep Pads RxNorm: 683624 1 Patch TOP QAM 019 2018 Inactive TRUEplus Lancets 30 gauge RxNorm: 1 Lancets Miscellaneous QAM 019 2018 Inactive 100/box lisinopril 2.5 mg tablet RxNorm: 572354 1 Tablet(s) PO daily 019 2018 Inactive ranitidine 150 mg tablet RxNorm: 258676 1 Tablet(s) PO BID 019 2018 Inactive This refill negates all other refills of this medication albuterol sulfate 2.5 mg/3 mL (0.083 %) solution for nebulization RxNorm: 431430 1 Vial INH QID 2018 Inactive 60/box. This refill negates all other refills of this medication. Please do not fill early. Please do not auto refill. levmetamfetamine 50 mg nasal inhaler RxNorm: 1 Unit(s) NASAL Q3-4H Do not use more than every 3 hours or 8 times/24hours 019 2018 Inactive Please do not auto refill. This refill negates all other refills of this medication gabapentin 300 mg capsule RxNorm: 064453 1 Capsule(s) PO TID as needed 019 2018 Inactive atorvastatin 20 mg tablet RxNorm: 729475 1 Tablet(s) PO QHS 019 2018 Inactive This refill negates all other refills of this medication trazodone 50 mg tablet RxNorm: 235941 1 Tablet(s) PO QHS 019 2018 Inactive This refill negates all other refills of this medication Ventolin HFA 90 mcg/actuation aerosol inhaler RxNorm: 445769 2 Puff(s) INH QID 019 2018 Inactive Please do not fill early. Please do not auto refill. This refill negates all other refills of this medication Calcium 600-D3 Plus 600 mg calcium-800 unit-50 mg tablet RxNorm: 1 Tablet(s) PO daily take an additonal tablet for itching. 019 2018 Inactive This refill negates all other refills of this medication Singulair 10 mg tablet RxNorm: 027053 1 Tablet(s) PO daily 019 2018 Inactive This refill negates all other refills of this medication buspirone 7.5 mg tablet RxNorm: 844197 1 Tablet(s) PO BID 019 2018 Inactive This refill negates all other refills of this medication diclofenac sodium 75 mg tablet,delayed release RxNorm: 357548 1 Tablet(s) PO BID 019 2018 Inactive This refill negates all other refills of this medication hydrochlorothiazide 12.5 mg tablet RxNorm: 236753 1 Tablet(s) PO QAM 019 2018 Inactive metoprolol succinate ER 50 mg tablet,extended release 24 hr RxNorm: 136612 1 Tablet(s) PO daily 019 2018 Inactive This refill negates all other refills of this medication levothyroxine 50 mcg tablet RxNorm: 636826 1 Tablet(s) PO daily 019 2018 Inactive This refill negates all other refills of this medication cetirizine 10 mg tablet RxNorm: 2959083 1 Tablet(s) PO daily 019 2018 Inactive This refill negates all other refills of this medication. Please do not auto refill Flintstones Complete (iron) 18 mg iron chewable tablet RxNorm: 1 Tablet(s) PO daily 019 2018 Inactive This refill negates all other refills of this medication buspirone 7.5 mg tablet RxNorm: 912674 1 Tablet(s) PO BID 2018 Inactive cetirizine 10 mg tablet RxNorm: 2924355 1 Tablet(s) PO daily 2018 Inactive Guaiasorb DM 10 mg-100 mg/5 mL oral liquid RxNorm: 807690 10 Milliliter(s) PO As needed every 4 hr 2018 Inactive Vicks Vaporub 4.7 %-1.2 %-2.6 % topical ointment RxNorm: 3591824 1 Application TOP TID 2018 Inactive levmetamfetamine 50 mg nasal inhaler RxNorm: 1 Unit(s) NASAL Q3-4H 2017 Inactive sertraline 50 mg tablet RxNorm: 905622 1 Tablet(s) PO daily 2018 Inactive Please note dose trazodone 50 mg tablet RxNorm: 872829 1 Tablet(s) PO QHS 2018 Inactive sertraline 50 mg tablet RxNorm: 367890 1 Tablet(s) PO daily 2017 Inactive amoxicillin 500 mg tablet RxNorm: 234027 1 Tablet(s) PO Q12H 2017 Inactive albuterol sulfate 2.5 mg/3 mL (0.083 %) solution for nebulization RxNorm: 483715 1 Vial INH QID 2018 Inactive 60/box. Please do not fill early. Please do not auto refill. Prozac 10 mg capsule RxNorm: 761961 1 Capsule(s) PO daily 2017 Inactive buspirone 7.5 mg tablet RxNorm: 668903 1 Tablet(s) PO BID 018 2018 Inactive gabapentin 300 mg capsule RxNorm: 285306 1 Capsule(s) PO TID as needed 2018 Inactive hydrochlorothiazide 12.5 mg tablet RxNorm: 790928 1 Tablet(s) PO QAM 018 2018 Inactive ranitidine 150 mg tablet RxNorm: 823731 1 Tablet(s) PO BID 018 2018 Inactive Macrobid 100 mg capsule RxNorm: 940342 1 Capsule(s) PO Q12H 018 2017 Inactive Singulair 10 mg tablet RxNorm: 683965 1 Tablet(s) PO daily 018 2018 Inactive Ventolin HFA 90 mcg/actuation aerosol inhaler RxNorm: 5911700 2 Puff(s) INH QID 018 2018 Inactive Singulair 10 mg tablet RxNorm: 257423 1 Tablet(s) PO daily 018 2017 Inactive buspirone 7.5 mg tablet RxNorm: 252774 1 Tablet(s) PO BID 018 2017 Inactive Prozac 10 mg capsule RxNorm: 121495 1 Capsule(s) PO daily 018 2017 Inactive Neilmed Pediatric Sinus Rinse Refill packet RxNorm: 1 Unit Dose NASAL PRN 018 2021 Inactive diclofenac sodium 75 mg tablet,delayed release RxNorm: 053671 1 Tablet(s) PO BID 018 2017 Inactive lisinopril 2.5 mg tablet RxNorm: 467442 1 Tablet(s) PO daily 018 2017 Inactive metoprolol succinate ER 50 mg tablet,extended release 24 hr RxNorm: 503293 1 Tablet(s) PO daily 018 2017 Inactive levothyroxine 50 mcg tablet RxNorm: 383267 1 Tablet(s) PO daily 018 2017 Inactive TRUEplus Lancets 30 gauge RxNorm: 1 Lancets Miscellaneous QAM 018 2017 Inactive 100/box Ventolin HFA 90 mcg/actuation aerosol inhaler RxNorm: 722504 2 Puff(s) INH QID 018 2017 Inactive Aleve 220 mg capsule RxNorm: 4918890 1 Capsule(s) PO BID 018 2018 Inactive ranitidine 150 mg tablet RxNorm: 440810 1 Tablet(s) PO BID 018 2017 Inactive gabapentin 300 mg capsule RxNorm: 788796 1 Capsule(s) PO TID as needed 2017 Inactive atorvastatin 20 mg tablet RxNorm: 219501 1 Tablet(s) PO QHS 018 2017 Inactive True Metrix Glucose Test Strip RxNorm: 1 Test Strips Miscellaneous QAM 2017 Inactive 50/container Calcium 600-D3 Plus 600 mg calcium-800 unit-50 mg tablet RxNorm: 1 Tablet(s) PO daily take an additonal tablet for itching. 018 2017 Inactive hydrochlorothiazide 12.5 mg tablet RxNorm: 769853 1 Tablet(s) PO QAM 018 2017 Inactive Flintstones Complete (iron) 18 mg iron chewable tablet RxNorm: 1 Tablet(s) PO daily 018 2017 Inactive d-mannose oral powder RxNorm: PO 018 2021 Inactive True Metrix Glucose Meter RxNorm: miscellaneous 019 2018 Inactive sertraline 50 mg tablet RxNorm: 050960 1 Tablet(s) PO daily 020 2019 Inactive loperamide 2 mg tablet RxNorm: 294557 oral 019 2018 Inactive Symbicort 160 mcg-4.5 mcg/actuation HFA aerosol inhaler RxNorm: 6096831 2 Puff(s) INH BID 019 2018 Inactive Medication Administered No Medication Administered data Procedures Procedure Codes Date Patient Health Questionnaire CPT-4: DPHQ 01/2022 Frailty Screening CPT-4: SFD 05/20/2021 Hypertension CPT-4: HTN 04/01/2021 Tobacco Assessment/Screening CPT-4: TCA 08/2021 Patient Health Questionnaire CPT-4: DPHQ 08/2021 Mini Mental State Exam CPT-4: DMMA Annual Wellness Visit (Subsequent Visit) CPT-4: G0439 01/13/2021 Advanced Care Planning CPT-4: VACP Fall Risk Assessment SNOMED CT: 15704515 4 CPT-4: DFRA 01/13/2021 [place] Assessment CPT-4: DSWA 12/01 Urinalysis, dip stick CPT-4: 13132 09/24/2020 Patient Health Questionnaire CPT-4: DPHQ Electrocardiogram CPT-4: 86968 05/14/2020 Tobacco Assessment/Screening CPT-4: TCA Fall Risk Assessment SNOMED CT: 61309459 4 CPT-4: DFRA 01/01/2020 Functional Assessment CPT-4: DFA 01/01/2020 [place] Assessment CPT-4: DSWA 11/04 Patient Health Questionnaire CPT-4: DPHQ [place] Assessment CPT-4: DSWA 10/03 Hypertension CPT-4: HTN 10/17/2019 Fall Risk Assessment SNOMED CT: 72839209 4 CPT-4: DFRA 09/19/2019 Functional Assessment CPT-4: DFA 09/19/2019 Urinalysis, dip stick CPT-4: 21729 06/21/2019 Tobacco Assessment/Screening CPT-4: TCA Patient Health Questionnaire CPT-4: DPHQ AHA/REBECCA Classification Assessment CPT-4: DAHA 04/25/2019 Controlled Substance Report CPT-4: CTRSU 04/03 Urinalysis, dip stick CPT-4: 00361 03/28/2019 Urinalysis, dip stick CPT-4: 29802 03/28/2019 T9T-Fboirmaxmutxjvj CPT-4: 04151 Unknown W5I-Qutfwzondhantcd CPT-4: 50325 Unknown N8P-Ckegjdyimrvltjc CPT-4: 31705 Unknown I5F-Hlndhrdwpozdbzg CPT-4: 22861 Unknown N1M-Ezxwstjlnhfjiej CPT-4: 07363 Unknown K2H-Tazdbwxqumzvoti CPT-4: 77576 Unknown W9B-Nxegiqqrxkhhcns CPT-4: 06923 Unknown D0U-Fqhcuujdhqwtjkk CPT-4: 23881 Unknown Gynecology Referral SNOMED CT: 384219588 CPT-4: R14 Unknown Reason For Visit No Reason For Visit data Plan of Care Planned Activity Notes Codes Status Date Referral: Pending Gynecology Referral Information Referral Processed Referral: Pending Pulmonolog y Referral Information Referral Processed Referral: Pending Psychiatry Referral Information Referral Initiated Referral: Pending Respirator y Services Referral Information Referral Initiated Referral: Pending Ophthalmol ogy Referral Information Referral Initiated Referral: [facility] WPtel: [address] [facility] [address] [employer] placed a call out to the patient to notify her that it has been recommended that she be seen by 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 Patient agreed to be seen, does not have a provider of choice and no transportation issues. [employer] Operator faxed referral and clinical notes to [facility] in [place], [place] near the patient's home. Patient to [...] seen and prefers a provider in the [place] or [facility]. [employer] Operator placed a call out to everyone listed in the area and the only location that was able to accept the patient's insurance was [facility] [facility] [place] [address] and spoke with Maylin. Maylin asked that the patient's referral, face sheet and visit notes be faxed to . [employer] Operator faxed over requested documents. Patient appointment confirmation letter generated and mailed to her home address. Patient to call to schedule an appointment. Processed Referral: [facility]: [address] [place] [address] [place], [place] [id number] Patient notified that it has been advised that she be seen by Neurology. Patient agreed to be seen and prefers to be seen by a provider in the [place], [place] area. Patient denies any concerns with transportation, and prefers to schedule her own appointment. [employer] Operator placed a call out to [facility] and spoke with Neeraj P: who [...]
--- OUTSIDE RECORDS SUMMARY | 2021-12-02 20:00 | XMS_ITS | CCD ---
Author Name Korey BOWMAN, Dr Jensen Address [address] [place] [address] Phone Organization [facility] Phone Care Team Providers Care Missileman Name Role Phone Palomo SPRING FORGER, Anna Primary Care Provider Unav ailable Unavailable Chronic Care Management Unavaila ble Summary Purpose DataExchange Insurance Providers Payer name Policy type / Coverage type Covered constitution party ID Effective Begin Date Effective End Date SUKI MAYO [id number] Unknown Unknown Family history Mother Diagnosis Age [...] Unknown Disability 05/31/[address]: 427538187 Has never s moked or chewed tobacco 05/31/[address]: 102535483 Never drinks alco hol 05/31/2018 Has the patient ever used illegal drugs? Unknown Has never used illegal drugs 05/31/2018 DNR Order/ Advanced Directive Unknown Full Code 05/31/2018 Allergies, Adverse Reactions, Alerts Substance Reaction Codes Entered Date Inactivated Date Status OxyContin itch, RxNorm: 742568 01/13/2021 No Inactive Da te Active *No known food allergies Unknown 09/06/2018 No I nactive Date Active Methylprednisolone hives RxNorm: 6902 09/06/2018 No Inac tive Date Active Problems Condition Codes Effective Dates Condition St atus Adult BMI 50.0-59.9 kg/sq m ICD-10: Z68. 43 ICD-9: V85.43 05/30/2018 Active Allergic rhinitis ICD-10: J30.9 ICD-9: 477.9 12/03/2021 Active Hyperlipidemia, mixed ICD-10: E78.2 ICD-9: 272.2 12/03/2021 Active Hypertension ICD-10: I10 ICD-9: 401.9 12/03/2021 Active Hypertensive heart disease ICD-10: I11.9 ICD-9: 402.90 12/03/2021 Active Obstructive sleep apnea (chio lt) (pediatric) ICD-10: G47.33 ICD-9: 327.23 06/21/2019 Active Type 2 diabetes mellitus wit h peripheral neuropathy ICD-10: E11.42 ICD-9: 250.60 11/28/2019 Active Vitamin D deficiency ICD-10: E55.9 ICD-9: 268.9 12/03/2021 Active Hypertensive heart disease w ith heart failure ICD-10: I11.0 ICD-9: 402.91 04/25/2019 Resolved (Z00.01-V70.0) Encounter for general adult medical examination with abnormal findings ICD-10: Z00.01 ICD-9: V70.0 01/13/2021 Resolved (Z12.11-V76.51) Encounter fo r screening for malignant neoplasm of colon ICD-10: Z12.11 ICD-9: V76.51 04/17/2020 Resolved (Z12.31-V76.12) Encounter fo r screening mammogram for malignant neoplasm of breast ICD-10: Z12.31 ICD-9: V76.12 04/17/2020 Resolved (Z12.4-V76.2) Encounter for screening for malignant neoplasm of cervix ICD-10: Z12.4 ICD-9: V76.2 04/25/2019 Resolved (Z13.31-V79.0) Encounter for screening for depression ICD-10: Z13.31 ICD-9: V79.0 01/13/2021 Resolved Anorexia ICD-10: R63.0 ICD-9: 783.0 12/17/2020 Resolved Blister ICD-10: T14.8XXA ICD-9: 919.2 03/24/2021 Resolved Chronic kidney disease, stag e 2 (mild) ICD-10: N18.2 ICD-9: 585.2 10/29/2020 Resolved COVID-19 virus RNA test resu lt positive at limit of detection ICD-10: U07.1 ICD-9: 079.89 06/10/2021 Resolved Diarrhea ICD-10: R19.7 ICD-9: 787.91 08/13/2021 Resolved Dyspnea, unspecified ICD-10: R06.00 ICD-9: 786.09 02/08/2019 Resolved Elevated liver enzymes ICD-10: R74.8 ICD-9: 790.5 01/29/2021 Resolved Encounter for screening for tobacco use ICD-10: Z01.89 ICD-9: V72.85 01/01/2020 Resolved Encounter for screening, unspecified ICD-10: Z13.9 ICD-9: V82.9 09/05/2018 Resolved Family history of seizures ICD-10: Z84.8 9 ICD-9: V19.8 04/28/2021 Resolved Hyperlipidemia, unspecified ICD-10: E78. 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 FPC (current) use of non-steroidal anti-inflammatories (NSAID) ICD-10: Z79.1 ICD-9: V58.64 06/13/2018 Resolved Patient Not Seen ICD-10: UXZ.01 ICD-9: XZ0.1 04/27/2019 Resolved Patient not seen ICD-10: UXZ.01 ICD-9: UXZ.01 09/10/2021 Resolved Upper respiratory infection ICD-10: J06. 9 ICD-9: 465.9 06/02/2021 Resolved Syncope and collapse ICD-10: R55 ICD-9: 780.2 01/01/2020 Active GERD (gastroesophageal reflu x disease) ICD-10: K21.9 ICD-9: 530.81 09/07/2019 Active Adjustment disorder with mix ed anxiety and depressed mood ICD-10: F43.23 ICD-9: 309.28 09/05/2018 Active Post-traumatic stress disord er, unspecified ICD-10: F43.10 ICD-9: 309.81 09/05/2018 Active History of bladder surgery ICD-10: Z98.8 90 ICD-9: V45.89 01/13/2021 Active Urinary retention with incom plete bladder emptying ICD-10: R33.9 ICD-9: 788.21 01/13/2021 Active Encounter for immunization ICD-10: Z23 ICD-9: V04.81 06/11/2020 Inactive Apnea, not elsewhere classified ICD-10: R06.81 ICD-9: 786.03 01/31/2019 Inactive Chest pain, unspecified ICD-10: R07.9 ICD-9: 786.50 11/29/2018 Inactive Chronic kidney disease, unspecified ICD- 10: N18.9 ICD-9: 585.9 06/21/2019 Inactive Encounter for immunization ICD-10: Z23 ICD-9: V03.9 04/25/2019 Inactive Encounter for preprocedural cardiovascular examination ICD-10: Z01.810 ICD-9: V72.81 03/28/2019 Inactive Headache ICD-10: R51 ICD-9: 784.0 10/03/2018 Inactive Other prison (current) dr sharma therapy ICD-10: Z79.899 ICD-9: V58.69 04/25/2019 Inactive Type 2 diabetes mellitus wit hout complications ICD-10: E11.9 ICD-9: 250.00 10/03/2018 Inactive Wheezing ICD-10: R06.2 ICD-9: 786.07 08/08/2018 Inactive Abnormal urine finding ICD-10: R82.90 ICD-9: 791.9 09/24/2020 Resolved Abrasion of toe ICD-10: S90.416A ICD-9: 917.0 02/14/2020 Resolved Dante eye ICD-10: H10.029 ICD-9: 372.03 12/29/2019 Resolved Right wrist pain ICD-10: M25.531 ICD-9: 719.43 05/14/2020 Resolved Sinusitis ICD-10: J32.9 ICD-9: 473.9 11/07/2019 Resolved Superficial burn of multiple sites of right hand, subsequent encounter ICD-10: T23.191D ICD-9: V58.89 11/28/2020 Resolved Urinary tract infection ICD-10: N39.0 ICD-9: 599.0 10/01/2020 Resolved Polyneuropathy, unspecified ICD-10: G62. 9 ICD-9: 356.9 05/30/2018 Active Hypothyroidism, unspecified ICD-10: E03. 9 ICD-9: 244.9 09/05/2018 Active Fecal incontinence ICD-10: R15.9 ICD-9: 787.60 12/15/2019 Active Mixed incontinence ICD-10: N39.46 ICD-9: 788.33 05/24/2019 Active Asthma ICD-10: J45.909 ICD-9: 493.90 08/08/2018 Active Abnormal electrocardiogram [ ECG] [EKG] ICD-10: R94.31 ICD-9: 794.31 05/30/2018 Active Edema, unspecified ICD-10: R60.9 ICD-9: 782.3 07/11/2018 Active Medications Medication Codes Instructions Start Date Stop Date Status Fill Instructions cholecalciferol (vitamin D3) 50 mcg (2,000 unit) tablet RxNorm: 573488 Take 1 Tablet(s) Oral every day 022 2022 Inactive Myrbetriq 50 mg tablet,extended release RxNorm: 6996510 1 Tablet(s) Oral every day 022 No Stop Date Active Ozempic 0.25 mg or 0.5 mg (2 mg/1.5 mL) subcutaneous pen injector RxNorm: 6617846 inject 0.5 milligrams subcutaneously every week 022 2021 Inactive Ozempic 0.25 mg or 0.5 mg (2 mg/1.5 mL) subcutaneous pen injector RxNorm: 5868172 Take 0.5 Capsule(s) Injection once a week 022 2021 Inactive omeprazole 20 mg capsule,delayed release RxNorm: 886203 Take 1 Capsule(s) Oral every evening 021 2020 Inactive Ozempic 0.25 mg or 0.5 mg (2 mg/1.5 mL) subcutaneous pen injector RxNorm: 7116694 Take 0.25 Milligram(s) Subcutaneous once a week 021 2021 Inactive Easy Touch Alcohol Prep Pads RxNorm: 648738 USE DIRECTED EACH MORNING 021 2021 Inactive Probiotic 10 billion cell capsule RxNorm: 5392964 Take 1 Capsule(s) Oral every day 021 2021 Inactive levothyroxine 50 mcg tablet RxNorm: 659113 Take 1 Tablet(s) Oral every day 021 2020 Inactive Acid Construction 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 (famotidine) 20 mg tablet RxNorm: 093671 Take 1 Tablet(s) Oral every morning 021 2020 Inactive Heartburn Relief (famotidine) 10 mg tablet RxNorm: 927456 Take 1 Tablet(s) Oral QAM 021 2020 Inactive levothyroxine 50 mcg tablet RxNorm: 224964 Take 1 Tablet(s) Oral QD 2020 Inactive Singulair 10 mg tablet RxNorm: 573637 TAKE (1) TABLET BY MOUTH DAILY 2020 Inactive metformin 1,000 mg tablet RxNorm: 588838 1 Tablet(s) Oral two times a day 021 2021 Inactive lisinopril 2.5 mg tablet RxNorm: 889453 Take 1 Tablet(s) Oral every day 021 2020 Inactive hydrochlorothiazide 25 mg tablet RxNorm: 591735 Take 1 Tablet(s) Oral every day 021 2020 Inactive ondansetron 4 mg disintegrating tablet RxNorm: 385089 1 Tablet(s) Oral two times a day 021 2020 Inactive Sudafed 12 Hour 120 mg tablet,extended release RxNorm: 0208756 TAKE 1 TABLET BY MOUTH EVERY 12 HOURS NEEDED 2021 Inactive Heartburn Relief (famotidine) 10 mg tablet RxNorm: 354655 Take 1 Tablet(s) Oral every morning 021 2020 Inactive omeprazole 20 mg capsule,delayed release RxNorm: 997040 1 Capsule(s) Oral every evening 021 2020 Inactive sertraline 100 mg tablet RxNorm: 017252 2 Tablet(s) Oral every day 021 2020 Inactive levothyroxine 50 mcg tablet RxNorm: 517619 TAKE (1) TABLET BY MOUTH DAILY 021 2020 Inactive metformin 500 mg tablet RxNorm: 893423 1 Tablet(s) Oral two times a day take with 500mg to equal 1000mg 021 2020 Inactive gabapentin 300 mg capsule RxNorm: 620060 TAKE 1 CAPSULE BY MOUTH THREE TIMES A DAY 021 2020 Inactive lisinopril 2.5 mg tablet RxNorm: 739111 TAKE 1 TABLET BY MOUTH DAILY 021 2020 Inactive gabapentin 300 mg capsule RxNorm: 684480 TAKE 1 CAPSULE BY MOUTH THREE TIMES A DAY 021 2020 Inactive Singulair 10 mg tablet RxNorm: 506936 TAKE (1) TABLET BY MOUTH DAILY 021 2020 Inactive metformin 1,000 mg tablet RxNorm: 554968 1 Tablet(s) Oral two times a day 021 2020 Inactive atorvastatin 40 mg tablet RxNorm: 455814 1 Tablet(s) Oral every day 021 2020 Inactive omeprazole 20 mg capsule,delayed release RxNorm: 895852 1 Capsule(s) Oral every evening 021 2020 Inactive famotidine 10 mg tablet RxNorm: 240383 1 Tablet(s) Oral every morning 021 2020 Inactive Alcohol Prep Pads RxNorm: 742471 USE EACH MORNING 021 2020 Inactive omeprazole 20 mg capsule,delayed release RxNorm: 430486 1 Capsule(s) Oral two times a day 021 2021 Inactive omeprazole 20 mg capsule,delayed release RxNorm: 137851 TAKE 1 CAPSULE BY MOUTH EVERY DAY 021 2021 Inactive Macrobid 100 mg capsule RxNorm: 702615 1 Capsule(s) Oral every 12 hours with food 020 2020 Inactive omeprazole 20 mg capsule,delayed release RxNorm: 791827 1 Capsule(s) Oral two times a day 2021 Inactive metformin 1,000 mg tablet RxNorm: 272914 1 Tablet(s) Oral two times a day 2020 Inactive start on September 11, 2020 metformin 500 mg tablet RxNorm: 298757 1 Tablet(s) Oral two times a day take with 500mg to equal 1000mg 2019 Inactive gabapentin 300 mg capsule RxNorm: 703799 TAKE 1 CAPSULE BY MOUTH THREE TIMES DAILY 2020 Inactive cetirizine 10 mg tablet RxNorm: 0763495 TAKE (1) TABLET BY MOUTH DAILY 2020 Inactive metformin 500 mg tablet RxNorm: 261274 1 Tablet(s) Oral two times a day 2019 Inactive loperamide 2 mg tablet RxNorm: 169340 1 Tablet(s) Oral as needed take one tablet after each loose stool, maximum of 8 tablets in 24 hours 2021 Inactive Sudafed 12 Hour 120 mg tablet,extended release RxNorm: 8638429 TAKE 1 TABLET BY MOUTH EVERY 12 HOURS NEEDED 2019 Inactive hydrochlorothiazide 25 mg tablet RxNorm: 720193 TAKE (1) TABLET BY MOUTH EVERY DAY 2019 Inactive omeprazole 20 mg capsule,delayed release RxNorm: 907639 TAKE 1 CAPSULE BY MOUTH EVERY DAY 2020 Inactive metformin 500 mg tablet RxNorm: 858867 1 Tablet(s) Oral every day 2019 Inactive True Metrix Glucose Test Strip RxNorm: 1 Test Strips Miscellaneous two times a day as needed No Stop Date Active metformin 500 mg tablet RxNorm: 979891 1 Tablet(s) Oral every day 2019 Inactive diclofenac sodium 75 mg tablet,delayed release RxNorm: 388603 1 Tablet(s) PO BID 2021 Inactive This refill negates all other refills of this medication Sudafed 12 Hour 120 mg tablet,extended release RxNorm: 5167589 TAKE 1 TABLET BY MOUTH EVERY 12 HOURS NEEDED 020 2019 Inactive True Metrix Glucose Test Strip RxNorm: 1 Test Strips Miscellaneous every morning 020 2019 Inactive 100/container True Metrix Glucose Test Strip RxNorm: 1 Test Strips Miscellaneous QAM 020 2019 Inactive 100/container loperamide 2 mg tablet RxNorm: 772728 1 Tablet(s) Oral as needed take one tablet after each loose stool, maximum of 8 tablets in 24 hours 020 2019 Inactive cetirizine 10 mg tablet RxNorm: 7396058 1 Tablet(s) PO daily 2019 Inactive loperamide 2 mg tablet RxNorm: 541432 1 Tablet(s) Oral as needed take one tablet after each loose stool, maximum of 8 tablets in 24 hours 2019 Inactive quetiapine 100 mg tablet RxNorm: 085924 1 Tablet(s) Oral every night at bedtime 2019 Inactive levothyroxine 50 mcg tablet RxNorm: 601954 1 Tablet(s) PO daily 2020 Inactive gabapentin 300 mg capsule RxNorm: 232158 1 Capsule(s) PO TID 2019 Inactive levothyroxine 50 mcg tablet RxNorm: 940033 1 Tablet(s) PO daily 2019 Inactive lisinopril 2.5 mg tablet RxNorm: 341186 1 Tablet(s) PO daily 020 2020 Inactive gabapentin 300 mg capsule RxNorm: 693290 1 Capsule(s) PO TID 020 2019 Inactive cetirizine 10 mg tablet RxNorm: 9348535 1 Tablet(s) PO daily 020 2019 Inactive Singulair 10 mg tablet RxNorm: 951625 1 Tablet(s) PO daily 2020 Inactive gentamicin 0.3 % eye drops RxNorm: 261809 1 Drop(s) ophthalmic (eye) four times a day 2019 Inactive gentamicin 0.3 % eye drops RxNorm: 535003 1 Drop(s) ophthalmic (eye) four times a day 2019 Inactive gentamicin 0.3 % eye drops RxNorm: 643572 1 Drop(s) ophthalmic (eye) four times a day 2019 Inactive hydrochlorothiazide 25 mg tablet RxNorm: 543193 1 Tablet(s) Oral every day 2019 Inactive Sudafed 12 Hour 120 mg tablet,extended release RxNorm: 2866647 TAKE (1) TABLET BY MOUTH EVERY 12 HOURS NEEDED 2019 Inactive loperamide 2 mg tablet RxNorm: 002813 1 Tablet(s) Oral as needed take one tablet after each loose stool, maximum of 8 tablets in 24 hours 020 2019 Inactive loperamide 2 mg tablet RxNorm: 520542 1 Tablet(s) Oral as needed take one tablet after each loose stool, maximum of 8 tablets in 24 hours 2019 Inactive atorvastatin 40 mg tablet RxNorm: 752126 1 Tablet(s) Oral every day 2020 Inactive quetiapine 100 mg tablet RxNorm: 169455 1 Tablet(s) Oral every night at bedtime 2019 Inactive sertraline 100 mg tablet RxNorm: 158450 1 Tablet(s) Oral 2019 Inactive omeprazole 20 mg capsule,delayed release RxNorm: 265726 1 Capsule(s) Oral every day 2019 Inactive amoxicillin 250 mg capsule RxNorm: 235810 1 Capsule(s) Oral three times a day 2019 Inactive multivitamin with iron-mineral tablet RxNorm: 1 Tablet(s) Oral every day 2021 Inactive cetirizine 10 mg tablet RxNorm: 8944898 1 Tablet(s) PO daily 2019 Inactive This refill negates all other refills of this medication. Please do not auto refill Singulair 10 mg tablet RxNorm: 355759 1 Tablet(s) PO daily 2019 Inactive This refill negates all other refills of this medication gabapentin 300 mg capsule RxNorm: 818137 1 Capsule(s) PO TID 2019 Inactive lisinopril 2.5 mg tablet RxNorm: 143605 1 Tablet(s) PO daily 2019 Inactive levothyroxine 50 mcg tablet RxNorm: 128641 1 Tablet(s) PO daily 2019 Inactive This refill negates all other refills of this medication hydrochlorothiazide 25 mg tablet RxNorm: 250085 1 Tablet(s) Oral every day 2019 Inactive fenugreek seed extract 500 mg capsule RxNorm: 1 Capsule(s) Oral three times a day 2021 Inactive Alcohol Prep Pads RxNorm: 847550 1 Patch TOP QAM 2020 Inactive loperamide 2 mg tablet RxNorm: 159976 1 Tablet(s) Oral as needed take one tablet after each loose stool not to exceed 8 tablets a day 2018 Inactive Calcium 600-D3 Plus (mag-zinc) 600 mg calcium-800 unit-50 mg tablet RxNorm: 1 Tablet(s) PO daily take an additonal tablet for itching. 019 2021 Inactive This refill negates all other refills of this medication TRUEplus Lancets 30 gauge RxNorm: 1 Lancets Miscellaneous QAM 019 2019 Inactive 100/box fenugreek seed extract 500 mg capsule RxNorm: 1 Capsule(s) Oral three times a day 2019 Inactive hydrochlorothiazide 25 mg tablet RxNorm: 454775 1 Tablet(s) Oral every day 019 2019 Inactive Sudafed 12 Hour 120 mg tablet,extended release RxNorm: 1652514 1 Tablet(s) Oral every 12 hours as needed 019 2018 Inactive omeprazole 20 mg capsule,delayed release RxNorm: 644100 1 Capsule(s) Oral every day 019 2019 Inactive Sudafed 12 Hour 120 mg tablet,extended release RxNorm: 5532829 1 Tablet(s) Oral every 12 hours as needed 019 2018 Inactive pantoprazole 40 mg tablet,delayed release RxNorm: 465279 1 Tablet(s) Oral every day 2018 Inactive discontinue any other H2Blkr. and PPI albuterol sulfate 2.5 mg/3 mL (0.083 %) solution for nebulization RxNorm: 621094 1 Vial Inhalation every four hours as needed as needed for dyspnea 2019 Inactive 60/box. This refill negates all other refills of this medication. Please do not fill early. Please do not auto refill. Symbicort 160 mcg-4.5 mcg/actuation HFA aerosol inhaler RxNorm: 2097009 2 Puff(s) INH BID No Stop Date Active Alcohol Prep Pads RxNorm: 801627 1 Patch TOP QAM 019 2019 Inactive Ventolin HFA 90 mcg/actuation aerosol inhaler RxNorm: 930706 2 Puff(s) INH QID 019 2019 Inactive Please do not fill early. Please do not auto refill. This refill negates all other refills of this medication True Metrix Glucose Test Strip RxNorm: 1 Test Strips Miscellaneous QAM 019 2019 Inactive 100/container atorvastatin 40 mg tablet RxNorm: 063215 1 Tablet(s) Oral every day 019 2019 Inactive buspirone 7.5 mg tablet RxNorm: 928043 1 Tablet(s) PO BID 019 2020 Inactive This refill negates all other refills of this medication hydrochlorothiazide 12.5 mg tablet RxNorm: 195264 1 Tablet(s) PO QAM 019 2019 Inactive levmetamfetamine 50 mg nasal inhaler RxNorm: 1 Unit(s) NASAL Q3-4H Do not use more than every 3 hours or 8 times/24hours 019 2021 Inactive Please do not auto refill. This refill negates all other refills of this medication Ventolin HFA 90 mcg/actuation aerosol inhaler RxNorm: 200556 2 Puff(s) INH QID 019 2018 Inactive Please do not fill early. Please do not auto refill. This refill negates all other refills of this medication Singulair 10 mg tablet RxNorm: 210784 1 Tablet(s) PO daily 019 2019 Inactive This refill negates all other refills of this medication cetirizine 10 mg tablet RxNorm: 8615101 1 Tablet(s) PO daily 019 2019 Inactive This refill negates all other refills of this medication. Please do not auto refill levothyroxine 50 mcg tablet RxNorm: 237475 1 Tablet(s) PO daily 019 2019 Inactive This refill negates all other refills of this medication diclofenac sodium 75 mg tablet,delayed release RxNorm: 799329 1 Tablet(s) PO BID 019 2019 Inactive This refill negates all other refills of this medication ranitidine 150 mg tablet RxNorm: 765777 1 Tablet(s) PO BID 019 2018 Inactive This refill negates all other refills of this medication Calcium 600-D3 Plus (mag-zinc) 600 mg calcium-800 unit-50 mg tablet RxNorm: 1 Tablet(s) PO daily take an additonal tablet for itching. 019 2018 Inactive This refill negates all other refills of this medication albuterol sulfate 2.5 mg/3 mL (0.083 %) solution for nebulization RxNorm: 218866 1 Vial INH QID 019 2018 Inactive 60/box. This refill negates all other refills of this medication. Please do not fill early. Please do not auto refill. lisinopril 2.5 mg tablet RxNorm: 700570 1 Tablet(s) PO daily 019 2019 Inactive gabapentin 300 mg capsule RxNorm: 053294 1 Capsule(s) PO TID 019 2019 Inactive atorvastatin 20 mg tablet RxNorm: 318657 1 Tablet(s) PO QHS 019 2018 Inactive This refill negates all other refills of this medication TRUEplus Lancets 30 gauge RxNorm: 1 Lancets Miscellaneous QAM 019 2018 Inactive 100/box gabapentin 300 mg capsule RxNorm: 399620 1 Capsule(s) PO TID 019 2018 Inactive Flintstones Complete (iron) 18 mg iron chewable tablet RxNorm: 1 Tablet(s) PO daily 019 2021 Inactive This refill negates all other refills of this medication gabapentin 300 mg capsule RxNorm: 050020 1 Capsule(s) PO TID as needed 019 2018 Inactive True Metrix Glucose Test Strip RxNorm: 1 Test Strips Miscellaneous QAM 019 2018 Inactive 100/container Alcohol Prep Pads RxNorm: 429606 1 Patch TOP QAM 2018 Inactive TRUEplus Lancets 30 gauge RxNorm: 1 Lancets Miscellaneous QAM 019 2018 Inactive 100/box lisinopril 2.5 mg tablet RxNorm: 393919 1 Tablet(s) PO daily 019 2018 Inactive ranitidine 150 mg tablet RxNorm: 381222 1 Tablet(s) PO BID 019 2018 Inactive This refill negates all other refills of this medication albuterol sulfate 2.5 mg/3 mL (0.083 %) solution for nebulization RxNorm: 592371 1 Vial INH QID 019 2018 Inactive [...] this medication gabapentin 300 mg capsule RxNorm: 959996 1 Capsule(s) PO TID as needed 019 2018 Inactive atorvastatin 20 mg tablet RxNorm: 719312 1 Tablet(s) PO QHS 019 2018 Inactive This refill negates all other refills of this medication trazodone 50 mg tablet RxNorm: 957677 1 Tablet(s) PO QHS 019 2018 Inactive This refill negates all other refills of this medication Ventolin HFA 90 mcg/actuation aerosol inhaler RxNorm: 084230 2 Puff(s) INH QID 019 2018 Inactive Please do not fill early. Please do not auto refill. This refill negates all other refills of this medication Calcium 600-D3 Plus 600 mg calcium-800 unit-50 mg tablet RxNorm: 1 Tablet(s) PO daily take an additonal tablet for itching. 019 2018 Inactive This refill negates all other refills of this medication Singulair 10 mg tablet RxNorm: 112753 1 Tablet(s) PO daily 019 2018 Inactive This refill negates all other refills of this medication buspirone 7.5 mg tablet RxNorm: 333308 1 Tablet(s) PO BID 019 2018 Inactive This refill negates all other refills of this medication diclofenac sodium 75 mg tablet,delayed release RxNorm: 492788 1 Tablet(s) PO BID 019 2018 Inactive This refill negates all other refills of this medication hydrochlorothiazide 12.5 mg tablet RxNorm: 929531 1 Tablet(s) PO QAM 019 2018 Inactive metoprolol succinate ER 50 mg tablet,extended release 24 hr RxNorm: 897340 1 Tablet(s) PO daily 019 2018 Inactive This refill negates all other refills of this medication levothyroxine 50 mcg tablet RxNorm: 513681 1 Tablet(s) PO daily 019 2018 Inactive This refill negates all other refills of this medication cetirizine 10 mg tablet RxNorm: 4286579 1 Tablet(s) PO daily 019 2018 Inactive This refill negates all other refills of this medication. Please do not auto refill Flintstones Complete (iron) 18 mg iron chewable tablet RxNorm: 1 Tablet(s) PO daily 019 2018 Inactive This refill negates all other refills of this medication buspirone 7.5 mg tablet RxNorm: 082288 1 Tablet(s) PO BID 019 2018 Inactive cetirizine 10 mg tablet RxNorm: 5480480 1 Tablet(s) PO daily 018 2018 Inactive Guaiasorb DM 10 mg-100 mg/5 mL oral liquid RxNorm: 182515 10 Milliliter(s) PO As needed every 4 hr 2018 Inactive Vicks Vaporub 4.7 %-1.2 %-2.6 % topical ointment RxNorm: 8500833 1 Application TOP TID 2018 Inactive levmetamfetamine 50 mg nasal inhaler RxNorm: 1 Unit(s) NASAL Q3-4H 018 2017 Inactive sertraline 50 mg tablet RxNorm: 450515 1 Tablet(s) PO daily 018 2018 Inactive Please note dose trazodone 50 mg tablet RxNorm: 974076 1 Tablet(s) PO QHS 018 2018 Inactive sertraline 50 mg tablet RxNorm: 949979 1 Tablet(s) PO daily 018 2017 Inactive amoxicillin 500 mg tablet RxNorm: 033840 1 Tablet(s) PO Q12H 018 2017 Inactive albuterol sulfate 2.5 mg/3 mL (0.083 %) solution for nebulization RxNorm: 325405 1 Vial INH QID 018 2018 Inactive 60/box. Please do not fill early. Please do not auto refill. Prozac 10 mg capsule RxNorm: 231488 1 Capsule(s) PO daily 018 2017 Inactive buspirone 7.5 mg tablet RxNorm: 170301 1 Tablet(s) PO BID 018 2018 Inactive gabapentin 300 mg capsule RxNorm: 563976 1 Capsule(s) PO TID as needed 2018 Inactive hydrochlorothiazide 12.5 mg tablet RxNorm: 874930 1 Tablet(s) PO QAM 018 2018 Inactive ranitidine 150 mg tablet RxNorm: 543006 1 Tablet(s) PO BID 018 2018 Inactive Macrobid 100 mg capsule RxNorm: 913738 1 Capsule(s) PO Q12H 018 2017 Inactive Singulair 10 mg tablet RxNorm: 813631 1 Tablet(s) PO daily 018 2018 Inactive Ventolin HFA 90 mcg/actuation aerosol inhaler RxNorm: 7181306 2 Puff(s) INH QID 018 2018 Inactive Singulair 10 mg tablet RxNorm: 656715 1 Tablet(s) PO daily 018 2017 Inactive buspirone 7.5 mg tablet RxNorm: 256116 1 Tablet(s) PO BID 018 2017 Inactive Prozac 10 mg capsule RxNorm: 771511 1 Capsule(s) PO daily 018 2017 Inactive diclofenac sodium 75 mg tablet,delayed release RxNorm: 213233 1 Tablet(s) PO BID 018 2017 Inactive lisinopril 2.5 mg tablet RxNorm: 070120 1 Tablet(s) PO daily 018 2017 Inactive [facility] Pediatric Sinus Rinse Refill packet RxNorm: 1 Unit Dose NASAL PRN 018 2021 Inactive metoprolol succinate ER 50 mg tablet,extended release 24 hr RxNorm: 408678 1 Tablet(s) PO daily 018 2017 Inactive levothyroxine 50 mcg tablet RxNorm: 446368 1 Tablet(s) PO daily 018 2017 Inactive TRUEplus Lancets 30 gauge RxNorm: 1 Lancets Miscellaneous QAM 018 2017 Inactive 100/box Ventolin HFA 90 mcg/actuation aerosol inhaler RxNorm: 745977 2 Puff(s) INH QID 018 2017 Inactive Aleve 220 mg capsule RxNorm: 3840885 1 Capsule(s) PO BID 018 2018 Inactive ranitidine 150 mg tablet RxNorm: 782689 1 Tablet(s) PO BID 018 2017 Inactive gabapentin 300 mg capsule RxNorm: 798826 1 Capsule(s) PO TID as needed 018 2017 Inactive atorvastatin 20 mg tablet RxNorm: 750883 1 Tablet(s) PO QHS 018 2017 Inactive True Metrix Glucose Test Strip RxNorm: 1 Test Strips Miscellaneous QAM 018 2017 Inactive 50/container Calcium 600-D3 Plus 600 mg calcium-800 unit-50 mg tablet RxNorm: 1 Tablet(s) PO daily take an additonal tablet for itching. 018 2017 Inactive hydrochlorothiazide 12.5 mg tablet RxNorm: 255509 1 Tablet(s) PO QAM 018 2017 Inactive Flintstones Complete (iron) 18 mg iron chewable tablet RxNorm: 1 Tablet(s) PO daily 018 2017 Inactive True Metrix Glucose Meter RxNorm: miscellaneous 019 2018 Inactive sertraline 50 mg tablet RxNorm: 500174 1 Tablet(s) PO daily 020 2019 Inactive loperamide 2 mg tablet RxNorm: 470173 oral 019 2018 Inactive d-mannose oral powder RxNorm: PO 018 2021 Inactive Symbicort 160 mcg-4.5 mcg/actuation HFA aerosol inhaler RxNorm: 1327510 2 Puff(s) INH BID 019 2018 Inactive [...] CPT-4: VACP Fall Risk Assessment SNOMED CT: 28962301 4 CPT-4: DFRA 01/13/2021 [place] Assessment CPT-4: DSWA 12/01 Urinalysis, dip stick CPT-4: 62745 09/24/2020 Patient Health Questionnaire CPT-4: DPHQ Electrocardiogram CPT-4: 19398 05/14/2020 Tobacco Assessment/Screening CPT-4: TCA Fall Risk Assessment SNOMED CT: 79396833 4 CPT-4: DFRA 01/01/2020 Functional Assessment CPT-4: DFA 01/01/2020 [place] Assessment CPT-4: DSWA 11/04 Patient Health Questionnaire CPT-4: DPHQ [place] Assessment CPT-4: DSWA 10/03 Hypertension CPT-4: HTN 10/17/2019 Fall Risk Assessment SNOMED CT: 62595050 4 CPT-4: DFRA 09/19/2019 Functional Assessment CPT-4: DFA 09/19/2019 Urinalysis, dip stick CPT-4: 37297 06/21/2019 Tobacco Assessment/Screening CPT-4: TCA Patient Health Questionnaire CPT-4: DPHQ AHA/REBECCA Classification Assessment CPT-4: DAHA 04/25/2019 Controlled Substance Report CPT-4: CTRSU 04/03 Urinalysis, dip stick CPT-4: 21687 03/28/2019 Urinalysis, dip stick CPT-4: 17122 03/28/2019 Y2Z-Abfgnsclgwkcdre CPT-4: 78530 Unknown N3N-Yebryjjijrzxrhw CPT-4: 63050 Unknown U3I-Ymthlolmdnnbmqu CPT-4: 43148 Unknown E9J-Hzgoprivptgadfv CPT-4: 49119 Unknown N7A-Tmyetgqxcwmxizu CPT-4: 80214 Unknown H2K-Fxidlqezjaoglft CPT-4: 17225 Unknown D2I-Fusjovtxziegdyn CPT-4: 51167 Unknown B6K-Yyuultzfzyqrugw CPT-4: 00976 Unknown Gynecology Referral SNOMED CT: 992679659 CPT-4: R14 Unknown Vital Signs Date Vital 12/03/2021 Blood Pressure 1: 118/76 Code: 8480-6 BMI: 54.1 Code: 56250-0 Heart Rate 1: 82 bpm Height: 4'11 Code: 8302-2 Respiratory Rate: 16 bpm SpO2: 98% Temperature: 36.4 (C) / 97.5 (F) Weight: 268 lbs Code: 39463-9 Reason For Visit Reason For Visit Effective Dates Notes hypertension 12/03/2021 diabetes mellitus 12/03/2021 Encounters Encounter Performer Location Location Address Codes Magdi e ([id number]) HOME VISIT EST PATIENT Diagnosis: Hypertension[ICD10 : I10] Diagnosis: Hypertensive heart disease[ICD10: I11.9] Diagnosis: Type 2 diabetes mellitus with peripheral neuropathy[ICD10: E11.42] Diagnosis: Adult BMI 50.0-59.9 kg/sq m[ICD10: Z68.43] Diagnosis: Vitamin D deficiency[ICD10: E55.9] Diagnosis: Hyperlipidemia, mixed[ICD10: E78.2] Mikey Tejada Office [id number] [place] [address] CPT-4: 36122 2 Plan of Care Planned Activity Notes Codes Status Date Visit Plan: The following plan c onsists of chronic conditions except as noted otherwise. All preceding sections of the chart are generated and considered in the determination of the stability of these diseases with the particular tests' results of primary interest noted following each diagnosis to which they pertain, as are additional tests which are currently being pursued. Also, the medications below are being continued as designated after consideration of whether an alternative treatment would be more appropriate or whether a dosage change is indicated. The following plan is the culmination of today's visit recommendation of the patient's overall medical plan of care. I10 Essential (primary) hypertension, continue lisinopril, HCTZ 07/02/20 Echo: EF 60%, mild conc. LVH 05/14/20 EKG: NSR disc. rechecking - 05/14/20 Noct. Pulse Ox.: 7 min. < 89% SpO2 continue with [facility] [employer] Clerk Josh Simon MD E11.42 Type 2 diabetes mellitus with peripheral neuropathy, Z68.43 Adult BMI 50.0-59.9 kg/sq m glucose monitor 100s-120s - bid Ozempic 0.5mg per week, gabapentin 11/02/21 HgbA1C 5.6, GFR >100 continue with Kerrie Pandya OD at [facility] (06/30/21) encourage to continue with Dr. Gonzales DPM E78.2 Hyperlipidemia, mixed atorvastatin has been d/c'd due to elevated LFTs 11/02/21 LDL 181, triglyc. 193 - plan re-check with next blood draw Mediterranean eating plan provided G47.33 Obstructive sleep apnea (adult), J45.909 Asthma continue utilization of Symbicort, albuterol via neb. or MDI q 4 hrs. prn dyspnea, CPAP use encouraged but doubt use discuss PFTs and recheck of Noct. Pulse. Ox continue with Screen Printing Inspector Jose BOWMAN E03.9 Hypothyroidism continue levothyroxine 11/02/21 TSH wnl E55.9 Vitamin D deficiency begin cholecalciferol 11/02/21 vit. D 20.4, PTH 133 (>88), B12 184 diclogenac top gel 1% qid prn arthralgia/myalgia K21.9 GERD (gastroesophageal reflux disease) continue omeprazole, famotidine, probiotic R55 Syncope and collapse, Z84.89 Family history of seizures continue with [facility] with evaluation with 5 day EEG F43.23 Adjustment disorder with mixed anxiety and depressed mood continue taking sertraline, buspirone continue with [facility] [place] N39.46 Mixed incontinence, R33.9 Urinary retention with incomplete bladder emptying Z98.890-V45.89 History of bladder surgery Myrbetriq qd use of incontinence supplies 01/05/21 urinary stimulator implant - symptoms improved, urinating ~ 5 times per day continue with Urologist J30.9 Allergic rhinitis cetirizine, montelukast 12/03/2021 Patient Education: Patient Medication Summary Completed 12/03/2021 Patient Education: Diabetes Complete d 12/03/2021 Patient Education: Hypertension Completed 12/03/2021 Patient Education: Obesity Completed 12/03/2021 Care Plan: Specialty Diagnostic Order Ordered 12/03/2021 Care Plan: Overnight Pulse ox Ordered 12/03/2021 Appointment: Chivo Bishop WPtel: [address] [place] [address] E410 11/02/2021 Appointment: Chivo Bishop WPtel: [address] [place] [address] E410 10/07/2021 Appointment: Chivo Bishop WPtel: [address] [place] [address] [place] ETV 09/10/2021 Appointment: Chivo Bishop WPtel: [address] [place] [address] [place] ETV 08/13/2021 Appointment: Chivo Bishop WPtel: [address] [place] [address] [place] ETV 07/06/2021 Appointment: Chivo Bishop WPtel: [address] [place] [address] PHTV 06/10/2021 Appointment: Anna Culver WPtel: [address] [place] [address] ETV 06/02/2021 Appointment: Chivo Bishop WPtel: [address] [place] [address] ETV 05/20/2021 Appointment: Anna Culver WPtel: [address] [place] [address] ETV 04/28/2021 Appointment: Chivo Bishop WPtel: [address] [place] [address] ETV 04/15/2021 Appointment: Anna Culver WPtel: [address] [place] [address] E410 04/01/2021 Appointment: Anna Culver WPtel: [address] [place] [address] ETV 03/24/2021 Appointment: Anna Culver WPtel: [address] [place] [address] ETV 03/13/2021 Appointment: Anna Culver WPtel: [address] [place] [address] E410 02/11/2021 Appointment: Chivo Bishop WPtel: [address] [place] [address] [place] E410 01/29/2021 Appointment: Anna Culver WPtel: [address] [place] [address] [place] ETV 01/13/2021 Appointment: Anna Culver WPtel: [address] [place] [address] E410 12/17/2020 Appointment: Chivo Bishop WPtel: [address] [place] [address] ETV 11/28/2020 Appointment: Anna Culver WPtel: [id number] [place] [address] [place] ETV 11/24/2020 Appointment: Anna Culver WPtel: [id number] [place] [address] [place] E410 10/29/2020 Appointment: Anna Culver WPtel: [address] [place] [address] [place] E410 09/24/2020 Appointment: Anna Culver WPtel: [address] [place] [address] [place] ETV 08/26/2020 Appointment: Anna Culver WPtel: [address] [place] [address] [place] ETV 08/19/2020 Appointment: Anna Culver WPtel: [address] [place] [address] [place] ETV 07/22/2020 Appointment: Anna Culver WPtel: [address] [place] [address] [place] ETV 07/08/2020 Appointment: Gianna Birmingham: [facility] 100 [id number] [place] ECHO 07/02/2020 Appointment: Anna Culver WPtel: [address] [place] [address] [place] E452 06/11/2020 Appointment: Anna Culver WPtel: [address] [place] [address] [place] E452 05/14/2020 Appointment: Anna Culver WPtel: [address] [place] [address] [place] E452 04/17/2020 Appointment: Anna Culver WPtel: [address] [place] [address] [place] E452 03/21/2020 Appointment: Anna Culver WPtel: [id number] E452 02/14/2020 Appointment: Anna Culver WPtel: [id number] [place] [address] E452 01/24/2020 Appointment: Anna Culver WPtel: [address] [place] [address] E452 01/01/2020 Appointment: Anna Culver WPtel: [address] [place] [address] E452 11/28/2019 Appointment: Anna Culver WPtel: [address] [place] [address] E452 10/17/2019 Appointment: Anna Culver WPtel: [address] [place] [address] E452 09/19/2019 Appointment: Sudha Hernadez WPtel: [address] [facility] [address] [id number] E452 07/04/2019 Appointment: Sudha Hernadez WPtel: [address] [facility] [address] [id number] E452 06/21/2019 Appointment: Charlene Oropeza WPtel: [address] [facility] [address] [id number] E452 05/24/2019 Appointment: Mallory Delgado E452 04/27/2019 Appointment: Charlene Oropeza WPtel: [address] [facility] [address] [id number] E452 04/25/2019 Appointment: Rasta Palafox WPtel: [address] [facility] [address] [id number] E452 03/28/2019 Appointment: Rasta Palafox WPtel: [address] [facility] [address] [id number] E452 02/14/2019 Appointment: Rasta Palafox WPtel: [address] [facility] [address] [id number] E452 01/31/2019 Appointment: Rasta Palafox WPtel: [address] [facility] [address] [id number] E420 12/27/2018 Referral: Pending Gynecology Referral Information Referral Processed Referral: Pending Pulmonology Referral Information Referral Processed Referral: Pending Psychiatry Referral Information Referral Initiated Referral: Pending Respiratory Services Referral Information Referral Initiated Referral: Pending Ophthalmology Referral Information Referral Initiated Referral: [facility] WPtel: [address] [place] [address] Manager Ui placed a call out to the patient to notify her that it has been recommended that she be seen by 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 Patient agreed to be seen, does not have a provider of choice and no transportation issues. Manager Ui faxed referral and clinical notes to [facility] in [place], [place] near the patient's home. Patient to [...] seen and prefers a provider in the [place] or [facility]. Manager Ui placed a call out to everyone listed in the area and the only location that was able to accept the patient's insurance was [place] [address] [place] [address] and spoke with Maylin. Maylin asked that the patient's referral, face sheet and visit notes be faxed to . Manager Ui faxed over requested documents. Patient appointment confirmation letter generated and mailed to her home address. Patient to call to schedule an appointment. Processed Referral: [facility] WPtel: [address] [place] [address] Patient notified that it has been advised that she be seen by Neurology. Patient agreed to be seen and prefers to be seen by a provider in the [place], [place] area. Patient denies any concerns with transportation, and prefers to schedule her own appointment. Manager Ui placed a call out to [facility] and spoke with Neeraj P: who confirmed that their office is able to accept new patients and the patient's insurance. After confirming the providers fax number, singer songwriter faxed over the patient's referral, and most [...] Instructions Comment Date Assessment and plan reviewed . . The following plan consists of chronic conditions except as noted otherwise. All preceding sections of the chart are generated and considered in the determination of the stability of these diseases with the particular tests' results of primary interest noted following each diagnosis to which they pertain, as are additional tests which are currently being pursued. Also, the medications below are being continued as designated after consideration of whether an alternative treatment would be more appropriate or whether a dosage change is indicated. The following plan is the culmination of today's visit recommendation of the patient's overall medical plan of care. I10 Essential (primary) hypertension, continue lisinopril, HCTZ; 07/02/20 Echo: EF 60%, mild conc. LVH; 05/14/20 EKG: NSR; disc. rechecking - 05/14/20 Noct. Pulse Ox.: 7 min. < 89% SpO2; [facility] Josh Simon MD; E11.42 Type 2 diabetes mellitus with peripheral neuropathy, Z68.43 Adult BMI 50.0-59.9 kg/sq m glucose monitor 100s-120s - bid; Ozempic 0.5mg per week, gabapentin; 11/02/21 HgbA1C 5.6, GFR >100; continue with Kerrie Pandya OD at [facility] (06/30/21); encourage to continue with Dr. Gonzales DPM; E78.2 Hyperlipidemia, mixed atorvastatin has been d/c'd due to elevated LFTs; 11/02/21 LDL 181, triglyc. 193 - plan re-check with next blood draw; Mediterranean eating plan provided; G47.33 Obstructive sleep apnea (adult), J45.909 Asthma continue utilization of Symbicort, albuterol via neb. or MDI q 4 hrs. prn dyspnea, CPAP use encouraged but doubt use; discuss PFTs and recheck of Noct. Pulse. Ox; continue with Screen Printing Inspector Jose BOWMAN; E03.9 Hypothyroidism continue levothyroxine; 11/02/21 TSH wnl; E55.9 Vitamin D deficiency begin cholecalciferol; 11/02/21 vit. D 20.4, PTH 133 (>88), B12 184; diclogenac top gel 1% qid prn arthralgia/myalgia; K21.9 GERD (gastroesophageal reflux disease) continue omeprazole, famotidine, probiotic; R55 Syncope and collapse, Z84.89 Family history of seizures continue with [facility] with evaluation with 5 day EEG; F43.23 Adjustment disorder with mixed anxiety and depressed mood continue taking sertraline, buspirone; continue with [facility] [place]; N39.46 Mixed incontinence, R33.9 Urinary retention with incomplete bladder emptying; Z98.890-V45.89 History of bladder surgery Myrbetriq qd; use of incontinence supplies; 01/05/21 urinary stimulator implant - symptoms improved, urinating ~ 5 times per day; continue with Urologist; J30.9 Allergic rhinitis cetirizine, montelukast; 12/03/2021 Medical Equipment No Medical Equipment data Advance Directives No Advance Directive data
--- OUTSIDE RECORDS SUMMARY | 2022-01-06 20:00 | XMS_ITS | CCD ---
Author Name Darrell Carrion Address [address] [place] [address] Phone Organization [facility] Phone Care Team Providers Care Director Of Home Economics Name Role Phone Anna Culver NP Primary Care Provider Unav ailable Unavailable Chronic Care Management Unavaila ble Summary Purpose DataExchange Insurance Providers Payer name Policy type / Coverage type Covered democrat ID Effective Begin Date Effective End Date SUKI MAYO [id number] Unknown Unknown Family history Mother Diagnosis Age [...] Unknown Disability 05/31/[address]: 053259650 Has never s moked or chewed tobacco 05/31/[address]: 088756963 Never drinks alco hol 05/31/2018 Has the patient ever used illegal drugs? Unknown Has never used illegal drugs 05/31/2018 DNR Order/ Advanced Directive Unknown Full Code 05/31/2018 Allergies, Adverse Reactions, Alerts Substance Reaction Codes Entered Date Inactivated Date Status OxyContin itch, RxNorm: 273850 01/13/2021 No Inactive Da te Active *No known food allergies Unknown 09/06/2018 No I nactive Date Active Methylprednisolone hives RxNorm: 6902 09/06/2018 No Inac tive Date Active Problems Condition Codes Effective Dates Condition St atus Adjustment disorder with mix ed anxiety and depressed mood ICD-10: F43.23 ICD-9: 309.28 09/05/2018 Active Asthma ICD-10: J45.909 ICD-9: 493.90 08/08/2018 Active GERD (gastroesophageal reflu x disease) ICD-10: K21.9 ICD-9: 530.81 09/07/2019 Active Type 2 diabetes mellitus wit h peripheral neuropathy ICD-10: E11.42 ICD-9: 250.60 11/28/2019 Active Edema, unspecified ICD-10: R60.9 ICD-9: 782.3 07/11/2018 Active Obstructive sleep apnea (chio lt) (pediatric) ICD-10: G47.33 ICD-9: 327.23 06/21/2019 Active Adult BMI 50.0-59.9 kg/sq m ICD-10: Z68. 43 ICD-9: V85.43 05/30/2018 Active Allergic rhinitis ICD-10: J30.9 ICD-9: 477.9 12/03/2021 Active Hyperlipidemia, mixed ICD-10: E78.2 ICD-9: 272.2 12/03/2021 Active Hypertension ICD-10: I10 ICD-9: 401.9 12/03/2021 Active Hypertensive heart disease ICD-10: I11.9 ICD-9: 402.90 12/03/2021 Active Vitamin D deficiency ICD-10: E55.9 ICD-9: [...] ICD-10: E78. 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 9 ICD-9: 465.9 06/02/2021 Resolved Syncope and collapse ICD-10: R55 ICD-9: 780.2 01/01/2020 Active Post-traumatic stress disord er, unspecified ICD-10: [...] toe ICD-10: S90.416A ICD-9: 917.0 02/14/2020 Resolved Bache eye ICD-10: H10.029 ICD-9: 372.03 12/29/2019 Resolved [...] incontinence ICD-10: N39.46 ICD-9: 788.33 05/24/2019 Active Abnormal electrocardiogram [ ECG] [EKG] ICD-10: R94.31 ICD-9: 794.31 05/30/2018 Active Medications Medication Codes Instructions Start Date Stop Date Status Fill Instructions gabapentin 300 mg capsule RxNorm: 751227 Take 1 Capsule(s) Oral three times a day 022 2021 Inactive montelukast 10 mg tablet RxNorm: 268236 Take 1 Tablet(s) Oral every day 022 2021 Inactive cholecalciferol (vitamin D3) 50 mcg (2,000 unit) tablet RxNorm: 260476 Take 1 Tablet(s) Oral every day 022 2022 Inactive Myrbetriq 50 mg tablet,extended release RxNorm: 0260139 1 Tablet(s) Oral every day 022 No Stop Date Active Ozempic 0.25 mg or 0.5 mg (2 mg/1.5 mL) subcutaneous pen injector RxNorm: 5834686 inject 0.5 milligrams subcutaneously every week 022 2021 Inactive Ozempic 0.25 mg or 0.5 mg (2 mg/1.5 mL) subcutaneous pen injector RxNorm: 1413368 Take 0.5 Capsule(s) Injection once a week 022 2021 Inactive omeprazole 20 mg capsule,delayed release RxNorm: 682066 Take 1 Capsule(s) Oral every evening 021 2020 Inactive Ozempic 0.25 mg or 0.5 mg (2 mg/1.5 mL) subcutaneous pen injector RxNorm: 0671869 Take 0.25 Milligram(s) Subcutaneous once a week 2021 Inactive Easy Touch Alcohol Prep Pads RxNorm: 870360 USE DIRECTED EACH MORNING 021 2021 Inactive Probiotic 10 billion cell capsule RxNorm: 8305863 Take 1 Capsule(s) Oral every day 021 2021 Inactive levothyroxine 50 mcg tablet RxNorm: 753193 Take 1 Tablet(s) Oral every day 2020 Inactive Acid Oceanography Teacher (famotidine) 20 mg tablet RxNorm: 373417 Take 1 Tablet(s) Oral every morning 2020 Inactive Heartburn Relief (famotidine) 10 mg tablet RxNorm: 100182 Take 1 Tablet(s) Oral QAM 2020 Inactive levothyroxine 50 mcg tablet RxNorm: 076864 Take 1 Tablet(s) Oral QD 2020 Inactive Singulair 10 mg tablet RxNorm: 019225 TAKE (1) TABLET BY MOUTH DAILY 2020 Inactive metformin 1,000 mg tablet RxNorm: 366151 1 Tablet(s) Oral two times a day 021 2021 Inactive lisinopril 2.5 mg tablet RxNorm: 425598 Take 1 Tablet(s) Oral every day 2020 Inactive hydrochlorothiazide 25 mg tablet RxNorm: 482207 Take 1 Tablet(s) Oral every day 021 2020 Inactive ondansetron 4 mg disintegrating tablet RxNorm: 253415 1 Tablet(s) Oral two times a day 021 2020 Inactive Sudafed 12 Hour 120 mg tablet,extended release RxNorm: 1044463 TAKE 1 TABLET BY MOUTH EVERY 12 HOURS NEEDED 021 2021 Inactive Heartburn Relief (famotidine) 10 mg tablet RxNorm: 064164 Take 1 Tablet(s) Oral every morning 2020 Inactive omeprazole 20 mg capsule,delayed release RxNorm: 170911 1 Capsule(s) Oral every evening 021 2020 Inactive sertraline 100 mg tablet RxNorm: 504394 2 Tablet(s) Oral every day 021 2020 Inactive levothyroxine 50 mcg tablet RxNorm: 995454 TAKE (1) TABLET BY MOUTH DAILY 021 2020 Inactive metformin 500 mg tablet RxNorm: 482066 1 Tablet(s) Oral two times a day take with 500mg to equal 1000mg 021 2020 Inactive gabapentin 300 mg capsule RxNorm: 707143 TAKE 1 CAPSULE BY MOUTH THREE TIMES A DAY 021 2020 Inactive lisinopril 2.5 mg tablet RxNorm: 034872 TAKE 1 TABLET BY MOUTH DAILY 021 2020 Inactive gabapentin 300 mg capsule RxNorm: 480639 TAKE 1 CAPSULE BY MOUTH THREE TIMES A DAY 021 2020 Inactive Singulair 10 mg tablet RxNorm: 670327 TAKE (1) TABLET BY MOUTH DAILY 021 2020 Inactive metformin 1,000 mg tablet RxNorm: 857233 1 Tablet(s) Oral two times a day 021 2020 Inactive atorvastatin 40 mg tablet RxNorm: 702822 1 Tablet(s) Oral every day 021 2020 Inactive omeprazole 20 mg capsule,delayed release RxNorm: 332606 1 Capsule(s) Oral every evening 021 2020 Inactive famotidine 10 mg tablet RxNorm: 803306 1 Tablet(s) Oral every morning 021 2020 Inactive Alcohol Prep Pads RxNorm: 054154 USE EACH MORNING 021 2020 Inactive omeprazole 20 mg capsule,delayed release RxNorm: 007945 1 Capsule(s) Oral two times a day 021 2021 Inactive omeprazole 20 mg capsule,delayed release RxNorm: 199816 TAKE 1 CAPSULE BY MOUTH EVERY DAY 2021 Inactive Macrobid 100 mg capsule RxNorm: 257134 1 Capsule(s) Oral every 12 hours with food 2020 Inactive omeprazole 20 mg capsule,delayed release RxNorm: 687349 1 Capsule(s) Oral two times a day 2021 Inactive metformin 1,000 mg tablet RxNorm: 408356 1 Tablet(s) Oral two times a day 2020 Inactive start on September 11, 2020 metformin 500 mg tablet RxNorm: 620761 1 Tablet(s) Oral two times a day take with 500mg to equal 1000mg 2019 Inactive gabapentin 300 mg capsule RxNorm: 094346 TAKE 1 CAPSULE BY MOUTH THREE TIMES DAILY 2020 Inactive cetirizine 10 mg tablet RxNorm: 8478087 TAKE (1) TABLET BY MOUTH DAILY 2020 Inactive metformin 500 mg tablet RxNorm: 113879 1 Tablet(s) Oral two times a day 2019 Inactive loperamide 2 mg tablet RxNorm: 947793 1 Tablet(s) Oral as needed take one tablet after each loose stool, maximum of 8 tablets in 24 hours 2021 Inactive Sudafed 12 Hour 120 mg tablet,extended release RxNorm: 1595413 TAKE 1 TABLET BY MOUTH EVERY 12 HOURS NEEDED 2019 Inactive hydrochlorothiazide 25 mg tablet RxNorm: 778579 TAKE (1) TABLET BY MOUTH EVERY DAY 2019 Inactive omeprazole 20 mg capsule,delayed release RxNorm: 902712 TAKE 1 CAPSULE BY MOUTH EVERY DAY 2020 Inactive metformin 500 mg tablet RxNorm: 246387 1 Tablet(s) Oral every day 2019 Inactive True Metrix Glucose Test Strip RxNorm: 1 Test Strips Miscellaneous two times a day as needed No Stop Date Active metformin 500 mg tablet RxNorm: 726942 1 Tablet(s) Oral every day 020 2019 Inactive diclofenac sodium 75 mg tablet,delayed release RxNorm: 100195 1 Tablet(s) PO BID 2021 Inactive This refill negates all other refills of this medication Sudafed 12 Hour 120 mg tablet,extended release RxNorm: 1837494 TAKE 1 TABLET BY MOUTH EVERY 12 HOURS NEEDED 020 2019 Inactive True Metrix Glucose Test Strip RxNorm: 1 Test Strips Miscellaneous every morning 020 2019 Inactive 100/container True Metrix Glucose Test Strip RxNorm: 1 Test Strips Miscellaneous QAM 020 2019 Inactive 100/container loperamide 2 mg tablet RxNorm: 889904 1 Tablet(s) Oral as needed take one tablet after each loose stool, maximum of 8 tablets in 24 hours 020 2019 Inactive cetirizine 10 mg tablet RxNorm: 3350008 1 Tablet(s) PO daily 020 2019 Inactive loperamide 2 mg tablet RxNorm: 358822 1 Tablet(s) Oral as needed take one tablet after each loose stool, maximum of 8 tablets in 24 hours 020 2019 Inactive quetiapine 100 mg tablet RxNorm: 085569 1 Tablet(s) Oral every night at bedtime 2019 Inactive levothyroxine 50 mcg tablet RxNorm: 467092 1 Tablet(s) PO daily 020 2020 Inactive gabapentin 300 mg capsule RxNorm: 711890 1 Capsule(s) PO TID 020 2019 Inactive levothyroxine 50 mcg tablet RxNorm: 418387 1 Tablet(s) PO daily 020 2019 Inactive lisinopril 2.5 mg tablet RxNorm: 152924 1 Tablet(s) PO daily 020 2020 Inactive gabapentin 300 mg capsule RxNorm: 257646 1 Capsule(s) PO TID 2019 Inactive cetirizine 10 mg tablet RxNorm: 0672897 1 Tablet(s) PO daily 2019 Inactive Singulair 10 mg tablet RxNorm: 126772 1 Tablet(s) PO daily 020 2020 Inactive gentamicin 0.3 % eye drops RxNorm: 837711 1 Drop(s) ophthalmic (eye) four times a day 2019 Inactive gentamicin 0.3 % eye drops RxNorm: 332739 1 Drop(s) ophthalmic (eye) four times a day 2019 Inactive gentamicin 0.3 % eye drops RxNorm: 463603 1 Drop(s) ophthalmic (eye) four times a day 2019 Inactive hydrochlorothiazide 25 mg tablet RxNorm: 745231 1 Tablet(s) Oral every day 2019 Inactive Sudafed 12 Hour 120 mg tablet,extended release RxNorm: 6956917 TAKE (1) TABLET BY MOUTH EVERY 12 HOURS NEEDED 2019 Inactive loperamide 2 mg tablet RxNorm: 129826 1 Tablet(s) Oral as needed take one tablet after each loose stool, maximum of 8 tablets in 24 hours 020 2019 Inactive loperamide 2 mg tablet RxNorm: 749193 1 Tablet(s) Oral as needed take one tablet after each loose stool, maximum of 8 tablets in 24 hours 2019 Inactive atorvastatin 40 mg tablet RxNorm: 120630 1 Tablet(s) Oral every day 2020 Inactive quetiapine 100 mg tablet RxNorm: 652225 1 Tablet(s) Oral every night at bedtime 2019 Inactive sertraline 100 mg tablet RxNorm: 121046 1 Tablet(s) Oral 2019 Inactive omeprazole 20 mg capsule,delayed release RxNorm: 309307 1 Capsule(s) Oral every day 2019 Inactive amoxicillin 250 mg capsule RxNorm: 316881 1 Capsule(s) Oral three times a day 020 2019 Inactive multivitamin with iron-mineral tablet RxNorm: 1 Tablet(s) Oral every day 020 2021 Inactive cetirizine 10 mg tablet RxNorm: 0203052 1 Tablet(s) PO daily 2019 Inactive This refill negates all other refills of this medication. Please do not auto refill Singulair 10 mg tablet RxNorm: 111372 1 Tablet(s) PO daily 2019 Inactive This refill negates all other refills of this medication gabapentin 300 mg capsule RxNorm: 995554 1 Capsule(s) PO TID 2019 Inactive lisinopril 2.5 mg tablet RxNorm: 755888 1 Tablet(s) PO daily 2019 Inactive levothyroxine 50 mcg tablet RxNorm: 765054 1 Tablet(s) PO daily 2019 Inactive This refill negates all other refills of this medication hydrochlorothiazide 25 mg tablet RxNorm: 353205 1 Tablet(s) Oral every day 2019 Inactive fenugreek seed extract 500 mg capsule RxNorm: 1 Capsule(s) Oral three times a day 2021 Inactive Alcohol Prep Pads RxNorm: 460551 1 Patch TOP QAM 020 2020 Inactive loperamide 2 mg tablet RxNorm: 442284 1 Tablet(s) Oral as needed take one [...] 2019 Inactive hydrochlorothiazide 25 mg tablet RxNorm: 131913 1 Tablet(s) Oral every day 019 2019 Inactive Sudafed 12 Hour 120 mg tablet,extended release RxNorm: 4698754 1 Tablet(s) Oral every 12 hours as needed 2018 Inactive omeprazole 20 mg capsule,delayed release RxNorm: 386560 1 Capsule(s) Oral every day 019 2019 Inactive Sudafed 12 Hour 120 mg tablet,extended release RxNorm: 9055114 1 Tablet(s) Oral every 12 hours as needed 2018 Inactive pantoprazole 40 mg tablet,delayed release RxNorm: 734958 1 Tablet(s) Oral every day 2018 Inactive discontinue any other H2Blkr. and PPI albuterol sulfate 2.5 mg/3 mL (0.083 %) solution for nebulization RxNorm: 560421 1 Vial Inhalation every four hours as needed as needed for dyspnea 2019 Inactive 60/box. This refill negates all other refills of this medication. Please do not fill early. Please do not auto refill. Symbicort 160 mcg-4.5 mcg/actuation HFA aerosol inhaler RxNorm: 1514456 2 Puff(s) INH BID No Stop Date Active Alcohol Prep Pads RxNorm: 109958 1 Patch TOP QAM 019 2019 Inactive Ventolin HFA 90 mcg/actuation aerosol inhaler RxNorm: 672047 2 Puff(s) INH QID 2019 Inactive Please do not fill early. Please do not auto refill. This refill negates all other refills of this medication True Metrix Glucose Test Strip RxNorm: 1 Test Strips Miscellaneous QAM 019 2019 Inactive 100/container atorvastatin 40 mg tablet RxNorm: 250033 1 Tablet(s) Oral every day 019 2019 Inactive buspirone 7.5 mg tablet RxNorm: 958421 1 Tablet(s) PO BID 019 2020 Inactive This refill negates all other refills of this medication hydrochlorothiazide 12.5 mg tablet RxNorm: 689000 1 Tablet(s) PO QAM 019 2019 Inactive levmetamfetamine 50 mg nasal inhaler RxNorm: 1 Unit(s) NASAL Q3-4H Do not use more than every 3 hours or 8 times/24hours 019 2021 Inactive Please do not auto refill. This refill negates all other refills of this medication Ventolin HFA 90 mcg/actuation aerosol inhaler RxNorm: 931654 2 Puff(s) INH QID 2018 Inactive Please do not fill early. Please do not auto refill. This refill negates all other refills of this medication Singulair 10 mg tablet RxNorm: 987559 1 Tablet(s) PO daily 019 2019 Inactive This refill negates all other refills of this medication cetirizine 10 mg tablet RxNorm: 5042913 1 Tablet(s) PO daily 019 2019 Inactive This refill negates all other refills of this medication. Please do not auto refill levothyroxine 50 mcg tablet RxNorm: 103101 1 Tablet(s) PO daily 019 2019 Inactive This refill negates all other refills of this medication diclofenac sodium 75 mg tablet,delayed release RxNorm: 682865 1 Tablet(s) PO BID 019 2019 Inactive This refill negates all other refills of this medication ranitidine 150 mg tablet RxNorm: 579233 1 Tablet(s) PO BID 019 2018 Inactive This refill negates all other refills of this medication Calcium 600-D3 Plus (mag-zinc) 600 mg calcium-800 unit-50 mg tablet RxNorm: 1 Tablet(s) PO daily take an additonal tablet for itching. 019 2018 Inactive This refill negates all other refills of this medication albuterol sulfate 2.5 mg/3 mL (0.083 %) solution for nebulization RxNorm: 419880 1 Vial INH QID 2018 Inactive 60/box. This refill negates all other refills of this medication. Please do not fill early. Please do not auto refill. lisinopril 2.5 mg tablet RxNorm: 509135 1 Tablet(s) PO daily 019 2019 Inactive gabapentin 300 mg capsule RxNorm: 998706 1 Capsule(s) PO TID 019 2019 Inactive atorvastatin 20 mg tablet RxNorm: 412333 1 Tablet(s) PO QHS 2018 Inactive This refill negates all other refills of this medication TRUEplus Lancets 30 gauge RxNorm: 1 Lancets Miscellaneous QAM 019 2018 Inactive 100/box gabapentin 300 mg capsule RxNorm: 079249 1 Capsule(s) PO TID 2018 Inactive Flintstones Complete (iron) 18 mg iron chewable tablet RxNorm: 1 Tablet(s) PO daily 019 2021 Inactive This refill negates all other refills of this medication gabapentin 300 mg capsule RxNorm: 783407 1 Capsule(s) PO TID as needed 019 2018 Inactive True Metrix Glucose Test Strip RxNorm: 1 Test Strips Miscellaneous QAM 019 2018 Inactive 100/container Alcohol Prep Pads RxNorm: 559958 1 Patch TOP QAM 2018 Inactive TRUEplus Lancets 30 gauge RxNorm: 1 Lancets Miscellaneous QAM 019 2018 Inactive 100/box lisinopril 2.5 mg tablet RxNorm: 249866 1 Tablet(s) PO daily 019 2018 Inactive ranitidine 150 mg tablet RxNorm: 342560 1 Tablet(s) PO BID 019 2018 Inactive This refill negates all other refills of this medication albuterol sulfate 2.5 mg/3 mL (0.083 %) solution for nebulization RxNorm: 014086 1 Vial INH QID 019 2018 Inactive [...] this medication gabapentin 300 mg capsule RxNorm: 485120 1 Capsule(s) PO TID as needed 019 2018 Inactive atorvastatin 20 mg tablet RxNorm: 234933 1 Tablet(s) PO QHS 019 2018 Inactive This refill negates all other refills of this medication trazodone 50 mg tablet RxNorm: 626385 1 Tablet(s) PO QHS 019 2018 Inactive This refill negates all other refills of this medication Ventolin HFA 90 mcg/actuation aerosol inhaler RxNorm: 917055 2 Puff(s) INH QID 019 2018 Inactive Please do not fill early. Please do not auto refill. This refill negates all other refills of this medication Calcium 600-D3 Plus 600 mg calcium-800 unit-50 mg tablet RxNorm: 1 Tablet(s) PO daily take an additonal tablet for itching. 019 2018 Inactive This refill negates all other refills of this medication Singulair 10 mg tablet RxNorm: 157433 1 Tablet(s) PO daily 019 2018 Inactive This refill negates all other refills of this medication buspirone 7.5 mg tablet RxNorm: 478600 1 Tablet(s) PO BID 019 2018 Inactive This refill negates all other refills of this medication diclofenac sodium 75 mg tablet,delayed release RxNorm: 610801 1 Tablet(s) PO BID 019 2018 Inactive This refill negates all other refills of this medication hydrochlorothiazide 12.5 mg tablet RxNorm: 838774 1 Tablet(s) PO QAM 019 2018 Inactive metoprolol succinate ER 50 mg tablet,extended release 24 hr RxNorm: 554894 1 Tablet(s) PO daily 019 2018 Inactive This refill negates all other refills of this medication levothyroxine 50 mcg tablet RxNorm: 575759 1 Tablet(s) PO daily 019 2018 Inactive This refill negates all other refills of this medication cetirizine 10 mg tablet RxNorm: 2579940 1 Tablet(s) PO daily 019 2018 Inactive This refill negates all other refills of this medication. Please do not auto refill Flintstones Complete (iron) 18 mg iron chewable tablet RxNorm: 1 Tablet(s) PO daily 019 2018 Inactive This refill negates all other refills of this medication buspirone 7.5 mg tablet RxNorm: 048413 1 Tablet(s) PO BID 019 2018 Inactive cetirizine 10 mg tablet RxNorm: 7192989 1 Tablet(s) PO daily 2018 Inactive Guaiasorb DM 10 mg-100 mg/5 mL oral liquid RxNorm: 625257 10 Milliliter(s) PO As needed every 4 hr 2018 Inactive Vicks Vaporub 4.7 %-1.2 %-2.6 % topical ointment RxNorm: 7629593 1 Application TOP TID 2018 Inactive levmetamfetamine 50 mg nasal inhaler RxNorm: 1 Unit(s) NASAL Q3-4H 2017 Inactive sertraline 50 mg tablet RxNorm: 098324 1 Tablet(s) PO daily 018 2018 Inactive Please note dose trazodone 50 mg tablet RxNorm: 837861 1 Tablet(s) PO QHS 018 2018 Inactive sertraline 50 mg tablet RxNorm: 914416 1 Tablet(s) PO daily 018 2017 Inactive amoxicillin 500 mg tablet RxNorm: 179772 1 Tablet(s) PO Q12H 018 2017 Inactive albuterol sulfate 2.5 mg/3 mL (0.083 %) solution for nebulization RxNorm: 409745 1 Vial INH QID 018 2018 Inactive 60/box. Please do not fill early. Please do not auto refill. Prozac 10 mg capsule RxNorm: 534805 1 Capsule(s) PO daily 018 2017 Inactive buspirone 7.5 mg tablet RxNorm: 876919 1 Tablet(s) PO BID 018 2018 Inactive gabapentin 300 mg capsule RxNorm: 761071 1 Capsule(s) PO TID as needed 2018 Inactive hydrochlorothiazide 12.5 mg tablet RxNorm: 609036 1 Tablet(s) PO QAM 018 2018 Inactive ranitidine 150 mg tablet RxNorm: 498694 1 Tablet(s) PO BID 018 2018 Inactive Macrobid 100 mg capsule RxNorm: 928542 1 Capsule(s) PO Q12H 018 2017 Inactive Singulair 10 mg tablet RxNorm: 353147 1 Tablet(s) PO daily 018 2018 Inactive Ventolin HFA 90 mcg/actuation aerosol inhaler RxNorm: 1359055 2 Puff(s) INH QID 018 2018 Inactive Singulair 10 mg tablet RxNorm: 431439 1 Tablet(s) PO daily 018 2017 Inactive buspirone 7.5 mg tablet RxNorm: 790465 1 Tablet(s) PO BID 018 2017 Inactive Prozac 10 mg capsule RxNorm: 276029 1 Capsule(s) PO daily 018 2017 Inactive diclofenac sodium 75 mg tablet,delayed release RxNorm: 789616 1 Tablet(s) PO BID 018 2017 Inactive lisinopril 2.5 mg tablet RxNorm: 978962 1 Tablet(s) PO daily 018 2017 Inactive Neilmed Pediatric Sinus Rinse Refill packet RxNorm: 1 Unit Dose NASAL PRN 018 2021 Inactive metoprolol succinate ER 50 mg tablet,extended release 24 hr RxNorm: 529142 1 Tablet(s) PO daily 018 2017 Inactive levothyroxine 50 mcg tablet RxNorm: 237839 1 Tablet(s) PO daily 018 2017 Inactive TRUEplus Lancets 30 gauge RxNorm: 1 Lancets Miscellaneous QAM 018 2017 Inactive 100/box Ventolin HFA 90 mcg/actuation aerosol inhaler RxNorm: 722139 2 Puff(s) INH QID 018 2017 Inactive Aleve 220 mg capsule RxNorm: 1474325 1 Capsule(s) PO BID 018 2018 Inactive ranitidine 150 mg tablet RxNorm: 013348 1 Tablet(s) PO BID 018 2017 Inactive gabapentin 300 mg capsule RxNorm: 596859 1 Capsule(s) PO TID as needed 018 2017 Inactive atorvastatin 20 mg tablet RxNorm: 160151 1 Tablet(s) PO QHS 018 2017 Inactive True Metrix Glucose Test Strip RxNorm: 1 Test Strips Miscellaneous QAM 018 2017 Inactive 50/container Calcium 600-D3 Plus 600 mg calcium-800 unit-50 mg tablet RxNorm: 1 Tablet(s) PO daily take an additonal tablet for itching. 018 2017 Inactive hydrochlorothiazide 12.5 mg tablet RxNorm: 870370 1 Tablet(s) PO QAM 018 2017 Inactive Flintstones Complete (iron) 18 mg iron chewable tablet RxNorm: 1 Tablet(s) PO daily 018 2017 Inactive True Metrix Glucose Meter RxNorm: miscellaneous 019 2018 Inactive sertraline 50 mg tablet RxNorm: 728944 1 Tablet(s) PO daily 020 2019 Inactive loperamide 2 mg tablet RxNorm: 501377 oral 019 2018 Inactive d-mannose oral powder RxNorm: PO 018 2021 Inactive Symbicort 160 mcg-4.5 mcg/actuation HFA aerosol inhaler RxNorm: 7464878 2 Puff(s) INH BID 2018 Inactive Medication Administered No Medication Administered data Procedures Procedure Codes Date Patient General Health Asses semnt Compared to one year ago, how would you rate your health in general?/the same CPT-4: PGHAUnknown 01/07/2022 Patient Health Questionnaire CPT-4: DPHQ 01/2022 Frailty Screening CPT-4: SFD 05/20/2021 Hypertension CPT-4: HTN 04/01/2021 Tobacco Assessment/Screening CPT-4: TCA 08/2021 Patient Health Questionnaire CPT-4: DPHQ 08/2021 Mini Mental State Exam CPT-4: DMMA Annual Wellness Visit (Subsequent Visit) CPT-4: G0439 01/13/2021 Advanced Care Planning CPT-4: VACP Fall Risk Assessment SNOMED CT: 43836039 4 CPT-4: DFRA 01/13/2021 Layton Fany Assessment CPT-4: DSWA 12/01 Urinalysis, dip stick CPT-4: 78234 09/24/2020 Patient Health Questionnaire CPT-4: DPHQ Electrocardiogram CPT-4: 52017 05/14/2020 Tobacco Assessment/Screening CPT-4: TCA Fall Risk Assessment SNOMED CT: 62419214 4 CPT-4: DFRA 01/01/2020 Functional Assessment CPT-4: DFA 01/01/2020 Layton Fany Assessment CPT-4: DSWA 11/04 Patient Health Questionnaire CPT-4: DPHQ [place] Fany Assessment CPT-4: DSWA 10/03 Hypertension CPT-4: HTN 10/17/2019 Fall Risk Assessment SNOMED CT: 75926671 4 CPT-4: DFRA 09/19/2019 Functional Assessment CPT-4: DFA 09/19/2019 Urinalysis, dip stick CPT-4: 18490 06/21/2019 Tobacco Assessment/Screening CPT-4: TCA Patient Health Questionnaire CPT-4: DPHQ AHA/REBECCA Classification Assessment CPT-4: DAHA 04/25/2019 Controlled Substance Report CPT-4: CTRSU 04/03 Urinalysis, dip stick CPT-4: 29828 03/28/2019 Urinalysis, dip stick CPT-4: 15706 03/28/2019 B7X-Owmwhjhgpiblgwc CPT-4: 17224 Unknown A3L-Oiwfnedvcbkzpew CPT-4: 81611 Unknown V6S-Jbffedgymfeirpe CPT-4: 83441 Unknown X7N-Cdiwijgtihdjkxl CPT-4: 90285 Unknown P4V-Cesdnsnqbyizuwv CPT-4: 80568 Unknown C4Z-Wjuxrhkfmhmggnp CPT-4: 38515 Unknown V6X-Muhamzxlmqtnmui CPT-4: 19740 Unknown O2B-Anberftiwckogbz CPT-4: 99613 Unknown Gynecology Referral SNOMED CT: 663458076 CPT-4: R14 Unknown Reason For Visit No Reason For Visit data Plan of Care Planned Activity Notes Codes Status Date Patient Education: Patient Medication Summary Completed 01/07/2022 Appointment: Mikey Nair WPtel: [address] [facility] 202b [id number] [id number] 12/03/2021 Appointment: Chivo Bishop WPtel: [id number] [address] [address] 11/02/2021 Appointment: Chivo Bishop WPtel: [address] [place] [address] E410 10/07/2021 Appointment: Chivo Bishop WPtel: [id number] [place] [address] ETV 09/10/2021 Appointment: Chivo Bishop WPtel: [address] [place] [address] ETV 08/13/2021 Appointment: Chivo Bishop WPtel: [address] [place] [address] ETV 07/06/2021 Appointment: Chivo Bishop WPtel: [address] [place] [address] PHTV 06/10/2021 Appointment: Anna Culver WPtel: [address] [place] [address] ETV 06/02/2021 Appointment: Chivo Bishop WPtel: [address] [place] [address] ETV 05/20/2021 Appointment: Anna Culver WPtel: [address] [place] [address] ETV 04/28/2021 Appointment: Chivo Bishop WPtel: [address] [place] [address] ETV 04/15/2021 Appointment: Anna Culver WPtel: [address] [place] [address] E410 04/01/2021 Appointment: Anna Culver WPtel: [address] [place] [address] ETV 03/24/2021 Appointment: Anna Culver WPtel: [address] [place] [address] ETV 03/13/2021 Appointment: Anna Culver WPtel: [address] [place] [address] E410 02/11/2021 Appointment: Chivo Bishop WPtel: [id number] [place] [address] E410 01/29/2021 Appointment: Anna Culver WPtel: [address] [place] [address] ETV 01/13/2021 Appointment: Anna Culver WPtel: [address] [place] [address] E410 12/17/2020 Appointment: Chivo Bishop WPtel: [address] [place] [address] ETV 11/28/2020 Appointment: Anna Culver WPtel: [address] [place] [address] ETV 11/24/2020 Appointment: Anna Culver WPtel: [address] [place] [address] E410 10/29/2020 Appointment: Anna Culver WPtel: [address] [place] [address] E410 09/24/2020 Appointment: Anna Culver WPtel: [address] [place] [address] ETV 08/26/2020 Appointment: Anna Culver WPtel: [address] [place] [address] ETV 08/19/2020 Appointment: Anna Culver WPtel: [address] [place] [address] ETV 07/22/2020 Appointment: Anna Culver WPtel: [address] [place] [address] ETV 07/08/2020 Appointment: Gianna Birmingham: [address] [facility] [address] [id number] [place] ECHO 07/02/2020 Appointment: Anna Culver WPtel: [id number] [place] [address] E452 06/11/2020 Appointment: Anna Culver WPtel: [address] [place] [address] E452 05/14/2020 Appointment: Anna Culver WPtel: [address] [place] [address] E452 04/17/2020 Appointment: Anna Culver WPtel: [address] [place] [address] E452 03/21/2020 Appointment: Anna Culver WPtel: [address] [place] [address] E452 02/14/2020 Appointment: Anna Culver WPtel: [address] [place] [address] E452 01/24/2020 Appointment: Anna Culver WPtel: [address] [place] [address] E452 01/01/2020 Appointment: Anna Culver WPtel: [address] [place] [address] [place] E452 11/28/2019 Appointment: Anna Culver WPtel: [address] [place] [address] [place] E452 10/17/2019 Appointment: Anna Culver WPtel: [address] [place] [address] [place] E452 09/19/2019 Appointment: Sudha Hernadez WPtel: [address] [facility] 202b [id number] [place] E452 07/04/2019 Appointment: Sudha Hernadez WPtel: [address] [facility] [id number] E452 06/21/2019 Appointment: Charlene Oropeza WPtel: [address] [facility] [id number] E452 05/24/2019 Appointment: Mallory Delgado E452 04/27/2019 Appointment: Charlene Oropeza WPtel: 190 [facility] [id number] E452 04/25/2019 Appointment: Rasta Palafox WPtel: [address] [facility] [id number] E452 03/28/2019 Appointment: Rasta Palafox WPtel: [address] [place] [address] [id number] E452 02/14/2019 Appointment: Rasta Palafox WPtel: [address] [place] [address] [id number] E452 01/31/2019 Appointment: Rasta Palafox WPtel: [address] [place] [address] [id number] E420 12/27/2018 Referral: Pending Gynecology Referral Information Referral Processed Referral: Pending Pulmonolog y Referral Information Referral Processed Referral: Pending Psychiatry Referral Information Referral Initiated Referral: Pending Respirator y Services Referral Information Referral Initiated Referral: Pending Ophthalmology Referral Information Referral Initiated Referral: [facility] WPtel: [address] [employer] placed a call out to the patient to notify her that it has been recommended that she be seen by 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 Patient agreed to be seen, does not have a provider of choice and no transportation issues. [employer] faxed referral and clinical notes to [facility] in [place], [place] near the patient's home. Patient to [...] seen and prefers a provider in the [place] or [place] area. [employer] placed a call out to everyone listed in the area and the only location that was able to accept the patient's insurance was [facility] [place] [address] and spoke with Maylin. Maylin asked that the patient's referral, face sheet and visit notes be faxed to . [employer] faxed over requested documents. Patient appointment confirmation letter generated and mailed to her home address. Patient to call to schedule an appointment. Processed Referral: [facility] Neurolog y WPtel: [address] [place] [address] Patient notified that it has been advised that she be seen by Neurology. Patient agreed to be seen and prefers to be seen by a provider in the [place], [place] area. Patient denies any concerns with transportation, and prefers to schedule her own appointment. [employer] placed a call out to [facility] [...]
--- OUTSIDE RECORDS SUMMARY | 2022-02-12 20:00 | XMS_ITS | CCD ---
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 Unknown Has never used illegal drugs 05/31/2018 DNR Order/ Advanced Directive Unknown Full Code 05/31/2018 Allergies, Adverse Reactions, Alerts Substance Reaction Codes Entered Date Inactivated Date Status OxyContin itch, RxNorm: 887746 01/13/2021 No Inactive Da te Active *No known food allergies Unknown 09/06/2018 No I nactive Date Active Methylprednisolone hives RxNorm: 6902 09/06/2018 No Inac tive Date Active Problems Condition Codes Effective Dates Condition St atus (Z00.00-V70.9) Encounter for general adult medical examination without abnormal findings ICD-10: Z00.00 ICD-9: V70.9 02/11/2022 Active Adult BMI 50.0-59.9 kg/sq m ICD-10: Z68. 43 ICD-9: V85.43 05/30/2018 Active Allergic rhinitis ICD-10: J30.9 ICD-9: 477.9 12/03/2021 Active Hyperlipidemia, mixed ICD-10: E78.2 ICD-9: 272.2 12/03/2021 Active Hypertension ICD-10: I10 ICD-9: 401.9 12/03/2021 Active Obstructive sleep apnea (chio lt) (pediatric) ICD-10: G47.33 ICD-9: 327.23 06/21/2019 Active Type 2 diabetes mellitus wit h peripheral neuropathy ICD-10: E11.42 ICD-9: 250.60 11/28/2019 Active Adjustment disorder with mix ed anxiety and depressed mood ICD-10: F43.23 ICD-9: 309.28 09/05/2018 Active Asthma ICD-10: J45.909 ICD-9: 493.90 08/08/2018 Active GERD (gastroesophageal reflu x disease) ICD-10: K21.9 ICD-9: 530.81 09/07/2019 Active Edema, unspecified ICD-10: R60.9 ICD-9: 782.3 07/11/2018 Active Hypertensive heart disease ICD-10: I11.9 ICD-9: [...] ICD-10: E78. 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-inflammatories (NSAID) ICD-10: [...] ICD-10: R51 ICD-9: 784.0 10/03/2018 Inactive Other fci (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 ICD-10: Z79.899 ICD-9: V58.69 04/25/2019 Inactive Type 2 diabetes mellitus wit hout complications ICD-10: E11.9 ICD-9: 250.00 10/03/2018 Inactive Wheezing ICD-10: R06.2 ICD-9: 786.07 08/08/2018 Inactive Abnormal urine finding ICD-10: R82.90 ICD-9: 791.9 09/24/2020 Resolved Abrasion of toe ICD-10: S90.416A ICD-9: 917.0 02/14/2020 Resolved Davis eye ICD-10: H10.029 ICD-9: 372.03 12/29/2019 Resolved [...] Fill Instructions atorvastatin 20 mg tablet RxNorm: 619465 Take 1 Tablet(s) Oral every night at bedtime 2021 Inactive This refill negates all other refills of this medication lisinopril 2.5 mg tablet RxNorm: 245814 Take 1 Tablet(s) Oral every day 022 2021 Inactive gabapentin 300 mg capsule RxNorm: 977307 Take 1 Capsule(s) Oral three times a day 022 2021 Inactive montelukast 10 mg tablet RxNorm: 190239 Take 1 Tablet(s) Oral every day 022 2021 Inactive cholecalciferol (vitamin D3) 50 mcg (2,000 unit) tablet RxNorm: 334483 Take 1 Tablet(s) Oral every day 2022 Inactive Myrbetriq 50 mg tablet,extended release RxNorm: 1944335 1 Tablet(s) Oral every day 022 No Stop Date Active Ozempic 0.25 mg or 0.5 mg (2 mg/1.5 mL) subcutaneous pen injector RxNorm: 5281879 inject 0.5 milligrams subcutaneously every week 2021 Inactive Ozempic 0.25 mg or 0.5 mg (2 mg/1.5 mL) subcutaneous pen injector RxNorm: 6380858 Take 0.5 Capsule(s) Injection once a week 2021 Inactive omeprazole 20 mg capsule,delayed release RxNorm: 738266 Take 1 Capsule(s) Oral every evening 2020 Inactive Ozempic 0.25 mg or 0.5 mg (2 mg/1.5 mL) subcutaneous pen injector RxNorm: 6753783 Take 0.25 Milligram(s) Subcutaneous once a week 2021 Inactive Easy Touch Alcohol Prep Pads RxNorm: 988994 USE DIRECTED EACH MORNING 2021 Inactive Probiotic 10 billion cell capsule RxNorm: 0294824 Take 1 Capsule(s) Oral every day 2021 Inactive levothyroxine 50 mcg tablet RxNorm: 059655 Take 1 Tablet(s) Oral every day 2020 Inactive Acid Indian Blanket Weaver (famotidine) 20 mg tablet RxNorm: 394448 Take 1 Tablet(s) Oral every morning 2020 Inactive Heartburn Relief (famotidine) 10 mg tablet RxNorm: 185322 Take 1 Tablet(s) Oral QAM 2020 Inactive levothyroxine 50 mcg tablet RxNorm: 584464 Take 1 Tablet(s) Oral QD 2020 Inactive Singulair 10 mg tablet RxNorm: 484291 TAKE (1) TABLET BY MOUTH DAILY 2020 Inactive metformin 1,000 mg tablet RxNorm: 189834 1 Tablet(s) Oral two times a day 2021 Inactive lisinopril 2.5 mg tablet RxNorm: 114208 Take 1 Tablet(s) Oral every day 2020 Inactive hydrochlorothiazide 25 mg tablet RxNorm: 790780 Take 1 Tablet(s) Oral every day 2020 Inactive ondansetron 4 mg disintegrating tablet RxNorm: 011518 1 Tablet(s) Oral two times a day 021 2020 Inactive Sudafed 12 Hour 120 mg tablet,extended release RxNorm: 9595210 TAKE 1 TABLET BY MOUTH EVERY 12 HOURS NEEDED 021 2021 Inactive Heartburn Relief (famotidine) 10 mg tablet RxNorm: 482679 Take 1 Tablet(s) Oral every morning 021 2020 Inactive omeprazole 20 mg capsule,delayed release RxNorm: 063858 1 Capsule(s) Oral every evening 021 2020 Inactive sertraline 100 mg tablet RxNorm: 008843 2 Tablet(s) Oral every day 021 2020 Inactive levothyroxine 50 mcg tablet RxNorm: 658922 TAKE (1) TABLET BY MOUTH DAILY 021 2020 Inactive metformin 500 mg tablet RxNorm: 930602 1 Tablet(s) Oral two times a day take with 500mg to equal 1000mg 021 2020 Inactive gabapentin 300 mg capsule RxNorm: 906303 TAKE 1 CAPSULE BY MOUTH THREE TIMES A DAY 021 2020 Inactive lisinopril 2.5 mg tablet RxNorm: 280999 TAKE 1 TABLET BY MOUTH DAILY 021 2020 Inactive gabapentin 300 mg capsule RxNorm: 207667 TAKE 1 CAPSULE BY MOUTH THREE TIMES A DAY 021 2020 Inactive Singulair 10 mg tablet RxNorm: 112914 TAKE (1) TABLET BY MOUTH DAILY 021 2020 Inactive metformin 1,000 mg tablet RxNorm: 105435 1 Tablet(s) Oral two times a day 021 2020 Inactive atorvastatin 40 mg tablet RxNorm: 522034 1 Tablet(s) Oral every day 021 2020 Inactive omeprazole 20 mg capsule,delayed release RxNorm: 304796 1 Capsule(s) Oral every evening 2020 Inactive famotidine 10 mg tablet RxNorm: 180361 1 Tablet(s) Oral every morning 2020 Inactive Alcohol Prep Pads RxNorm: 368976 USE EACH MORNING 2020 Inactive omeprazole 20 mg capsule,delayed release RxNorm: 608029 1 Capsule(s) Oral two times a day 2021 Inactive omeprazole 20 mg capsule,delayed release RxNorm: 341652 TAKE 1 CAPSULE BY MOUTH EVERY DAY 2021 Inactive Macrobid 100 mg capsule RxNorm: 326499 1 Capsule(s) Oral every 12 hours with food 2020 Inactive omeprazole 20 mg capsule,delayed release RxNorm: 504243 1 Capsule(s) Oral two times a day 2021 Inactive metformin 1,000 mg tablet RxNorm: 890026 1 Tablet(s) Oral two times a day 2020 Inactive start on September 11, 2020 metformin 500 mg tablet RxNorm: 855044 1 Tablet(s) Oral two times a day take with 500mg to equal 1000mg 2019 Inactive gabapentin 300 mg capsule RxNorm: 656160 TAKE 1 CAPSULE BY MOUTH THREE TIMES DAILY 2020 Inactive cetirizine 10 mg tablet RxNorm: 1609351 TAKE (1) TABLET BY MOUTH DAILY 2020 Inactive metformin 500 mg tablet RxNorm: 232240 1 Tablet(s) Oral two times a day 2019 Inactive loperamide 2 mg tablet RxNorm: 115167 1 Tablet(s) Oral as needed take one tablet after each loose stool, maximum of 8 tablets in 24 hours 2021 Inactive Sudafed 12 Hour 120 mg tablet,extended release RxNorm: 0388297 TAKE 1 TABLET BY MOUTH EVERY 12 HOURS NEEDED 2019 Inactive hydrochlorothiazide 25 mg tablet RxNorm: 594521 TAKE (1) TABLET BY MOUTH EVERY DAY 020 2019 Inactive omeprazole 20 mg capsule,delayed release RxNorm: 479166 TAKE 1 CAPSULE BY MOUTH EVERY DAY 020 2020 Inactive metformin 500 mg tablet RxNorm: 665602 1 Tablet(s) Oral every day 020 2019 Inactive True Metrix Glucose Test Strip RxNorm: 1 Test Strips Miscellaneous two times a day as needed No Stop Date Active metformin 500 mg tablet RxNorm: 936683 1 Tablet(s) Oral every day 020 2019 Inactive diclofenac sodium 75 mg tablet,delayed release RxNorm: 680852 1 Tablet(s) PO BID 020 2021 Inactive This refill negates all other refills of this medication Sudafed 12 Hour 120 mg tablet,extended release RxNorm: 5038013 TAKE 1 TABLET BY MOUTH EVERY 12 HOURS NEEDED 020 2019 Inactive True Metrix Glucose Test Strip RxNorm: 1 Test Strips Miscellaneous every morning 020 2019 Inactive 100/container True Metrix Glucose Test Strip RxNorm: 1 Test Strips Miscellaneous QA 020 2019 Inactive 100/container loperamide 2 mg tablet RxNorm: 539111 1 Tablet(s) Oral as needed take one tablet after each loose stool, maximum of 8 tablets in 24 hours 020 2019 Inactive cetirizine 10 mg tablet RxNorm: 5393025 1 Tablet(s) PO daily 020 2019 Inactive loperamide 2 mg tablet RxNorm: 493352 1 Tablet(s) Oral as needed take one tablet after each loose stool, maximum of 8 tablets in 24 hours 020 2019 Inactive quetiapine 100 mg tablet RxNorm: 829751 1 Tablet(s) Oral every night at bedtime 020 2019 Inactive levothyroxine 50 mcg tablet RxNorm: 216181 1 Tablet(s) PO daily 2020 Inactive gabapentin 300 mg capsule RxNorm: 081427 1 Capsule(s) PO TID 2019 Inactive levothyroxine 50 mcg tablet RxNorm: 248434 1 Tablet(s) PO daily 2019 Inactive lisinopril 2.5 mg tablet RxNorm: 761203 1 Tablet(s) PO daily 2020 Inactive gabapentin 300 mg capsule RxNorm: 640919 1 Capsule(s) PO TID 2019 Inactive cetirizine 10 mg tablet RxNorm: 0179252 1 Tablet(s) PO daily 2019 Inactive Singulair 10 mg tablet RxNorm: 743280 1 Tablet(s) PO daily 2020 Inactive gentamicin 0.3 % eye drops RxNorm: 099032 1 Drop(s) ophthalmic (eye) four times a day 2019 Inactive gentamicin 0.3 % eye drops RxNorm: 579495 1 Drop(s) ophthalmic (eye) four times a day 2019 Inactive gentamicin 0.3 % eye drops RxNorm: 195918 1 Drop(s) ophthalmic (eye) four times a day 2019 Inactive hydrochlorothiazide 25 mg tablet RxNorm: 081106 1 Tablet(s) Oral every day 2019 Inactive Sudafed 12 Hour 120 mg tablet,extended release RxNorm: 1583117 TAKE (1) TABLET BY MOUTH EVERY 12 HOURS NEEDED 2019 Inactive loperamide 2 mg tablet RxNorm: 902914 1 Tablet(s) Oral as needed take one tablet after each loose stool, maximum of 8 tablets in 24 hours 020 2019 Inactive loperamide 2 mg tablet RxNorm: 781304 1 Tablet(s) Oral as needed take one tablet after each loose stool, maximum of 8 tablets in 24 hours 020 2019 Inactive atorvastatin 40 mg tablet RxNorm: 475567 1 Tablet(s) Oral every day 020 2020 Inactive quetiapine 100 mg tablet RxNorm: 119462 1 Tablet(s) Oral every night at bedtime 2019 Inactive sertraline 100 mg tablet RxNorm: 415784 1 Tablet(s) Oral 2019 Inactive omeprazole 20 mg capsule,delayed release RxNorm: 611231 1 Capsule(s) Oral every day 2019 Inactive amoxicillin 250 mg capsule RxNorm: 585131 1 Capsule(s) Oral three times a day 2019 Inactive multivitamin with iron-mineral tablet RxNorm: 1 Tablet(s) Oral every day 2021 Inactive cetirizine 10 mg tablet RxNorm: 2374909 1 Tablet(s) PO daily 2019 Inactive This refill negates all other refills of this medication. Please do not auto refill Singulair 10 mg tablet RxNorm: 787765 1 Tablet(s) PO daily 2019 Inactive This refill negates all other refills of this medication gabapentin 300 mg capsule RxNorm: 551743 1 Capsule(s) PO TID 2019 Inactive lisinopril 2.5 mg tablet RxNorm: 177326 1 Tablet(s) PO daily 2019 Inactive levothyroxine 50 mcg tablet RxNorm: 641754 1 Tablet(s) PO daily 2019 Inactive This refill negates all other refills of this medication hydrochlorothiazide 25 mg tablet RxNorm: 326964 1 Tablet(s) Oral every day 2019 Inactive fenugreek seed extract 500 mg capsule RxNorm: 1 Capsule(s) Oral three times a day 2021 Inactive Alcohol Prep Pads RxNorm: 188528 1 Patch TOP QAM 2020 Inactive loperamide 2 mg tablet RxNorm: 596612 1 Tablet(s) Oral as needed take one [...] 2019 Inactive hydrochlorothiazide 25 mg tablet RxNorm: 791344 1 Tablet(s) Oral every day 2019 Inactive Sudafed 12 Hour 120 mg tablet,extended release RxNorm: 5338022 1 Tablet(s) Oral every 12 hours as needed 2018 Inactive omeprazole 20 mg capsule,delayed release RxNorm: 734620 1 Capsule(s) Oral every day 2019 Inactive Sudafed 12 Hour 120 mg tablet,extended release RxNorm: 6613888 1 Tablet(s) Oral every 12 hours as needed 2018 Inactive pantoprazole 40 mg tablet,delayed release RxNorm: 162811 1 Tablet(s) Oral every day 2018 Inactive discontinue any other H2Blkr. and PPI albuterol sulfate 2.5 mg/3 mL (0.083 %) solution for nebulization RxNorm: 824324 1 Vial Inhalation every four hours as needed as needed for dyspnea 2019 Inactive 60/box. This refill negates all other refills of this medication. Please do not fill early. Please do not auto refill. Symbicort 160 mcg-4.5 mcg/actuation HFA aerosol inhaler RxNorm: 6576220 2 Puff(s) INH BID No Stop Date Active Alcohol Prep Pads RxNorm: 472130 1 Patch TOP QAM 019 2019 Inactive Ventolin HFA 90 mcg/actuation aerosol inhaler RxNorm: 845308 2 Puff(s) INH QID 019 2019 Inactive Please do not fill early. Please do not auto refill. This refill negates all other refills of this medication True Metrix Glucose Test Strip RxNorm: 1 Test Strips Miscellaneous QA 019 2019 Inactive 100/container atorvastatin 40 mg tablet RxNorm: 736097 1 Tablet(s) Oral every day 019 2019 Inactive buspirone 7.5 mg tablet RxNorm: 904798 1 Tablet(s) PO BID 019 2020 Inactive This refill negates all other refills of this medication hydrochlorothiazide 12.5 mg tablet RxNorm: 362507 1 Tablet(s) PO QAM 019 2019 Inactive levmetamfetamine 50 mg nasal inhaler RxNorm: 1 Unit(s) NASAL Q3-4H Do not use more than every 3 hours or 8 times/24hours 019 2021 Inactive Please do not auto refill. This refill negates all other refills of this medication Ventolin HFA 90 mcg/actuation aerosol inhaler RxNorm: 317074 2 Puff(s) INH QID 019 2018 Inactive Please do not fill early. Please do not auto refill. This refill negates all other refills of this medication Singulair 10 mg tablet RxNorm: 239420 1 Tablet(s) PO daily 019 2019 Inactive This refill negates all other refills of this medication cetirizine 10 mg tablet RxNorm: 4087888 1 Tablet(s) PO daily 019 2019 Inactive This refill negates all other refills of this medication. Please do not auto refill levothyroxine 50 mcg tablet RxNorm: 689276 1 Tablet(s) PO daily 019 2019 Inactive This refill negates all other refills of this medication diclofenac sodium 75 mg tablet,delayed release RxNorm: 050530 1 Tablet(s) PO BID 019 2019 Inactive This refill negates all other refills of this medication ranitidine 150 mg tablet RxNorm: 867273 1 Tablet(s) PO BID 019 2018 Inactive This refill negates all other refills of this medication Calcium 600-D3 Plus (mag-zinc) 600 mg calcium-800 unit-50 mg tablet RxNorm: 1 Tablet(s) PO daily take an additonal tablet for itching. 019 2018 Inactive This refill negates all other refills of this medication albuterol sulfate 2.5 mg/3 mL (0.083 %) solution for nebulization RxNorm: 921547 1 Vial INH QID 2018 Inactive 60/box. This refill negates all other refills of this medication. Please do not fill early. Please do not auto refill. lisinopril 2.5 mg tablet RxNorm: 259940 1 Tablet(s) PO daily 019 2019 Inactive gabapentin 300 mg capsule RxNorm: 249641 1 Capsule(s) PO TID 019 2019 Inactive atorvastatin 20 mg tablet RxNorm: 422207 1 Tablet(s) PO QHS 2018 Inactive This refill negates all other refills of this medication TRUEplus Lancets 30 gauge RxNorm: 1 Lancets Miscellaneous QAM 019 2018 Inactive 100/box gabapentin 300 mg capsule RxNorm: 514153 1 Capsule(s) PO TID 019 2018 Inactive Flintstones Complete (iron) 18 mg iron chewable tablet RxNorm: 1 Tablet(s) PO daily 019 2021 Inactive This refill negates all other refills of this medication gabapentin 300 mg capsule RxNorm: 836128 1 Capsule(s) PO TID as needed 019 2018 Inactive True Metrix Glucose Test Strip RxNorm: 1 Test Strips Miscellaneous QA 019 2018 Inactive 100/container Alcohol Prep Pads RxNorm: 434964 1 Patch TOP QA 019 2018 Inactive TRUEplus Lancets 30 gauge RxNorm: 1 Lancets Miscellaneous QA 019 2018 Inactive 100/box lisinopril 2.5 mg tablet RxNorm: 252300 1 Tablet(s) PO daily 019 2018 Inactive ranitidine 150 mg tablet RxNorm: 599034 1 Tablet(s) PO BID 019 2018 Inactive This refill negates all other refills of this medication albuterol sulfate 2.5 mg/3 mL (0.083 %) solution for nebulization RxNorm: 385730 1 Vial INH QID 019 2018 Inactive [...] this medication gabapentin 300 mg capsule RxNorm: 054579 1 Capsule(s) PO TID as needed 019 2018 Inactive atorvastatin 20 mg tablet RxNorm: 182971 1 Tablet(s) PO QHS 019 2018 Inactive This refill negates all other refills of this medication trazodone 50 mg tablet RxNorm: 109552 1 Tablet(s) PO QHS 019 2018 Inactive This refill negates all other refills of this medication Ventolin HFA 90 mcg/actuation aerosol inhaler RxNorm: 001781 2 Puff(s) INH QID 019 2018 Inactive Please do not fill early. Please do not auto refill. This refill negates all other refills of this medication Calcium 600-D3 Plus 600 mg calcium-800 unit-50 mg tablet RxNorm: 1 Tablet(s) PO daily take an additonal tablet for itching. 019 2018 Inactive This refill negates all other refills of this medication Singulair 10 mg tablet RxNorm: 263321 1 Tablet(s) PO daily 019 2018 Inactive This refill negates all other refills of this medication buspirone 7.5 mg tablet RxNorm: 053257 1 Tablet(s) PO BID 019 2018 Inactive This refill negates all other refills of this medication diclofenac sodium 75 mg tablet,delayed release RxNorm: 265278 1 Tablet(s) PO BID 019 2018 Inactive This refill negates all other refills of this medication hydrochlorothiazide 12.5 mg tablet RxNorm: 838355 1 Tablet(s) PO QAM 019 2018 Inactive metoprolol succinate ER 50 mg tablet,extended release 24 hr RxNorm: 058371 1 Tablet(s) PO daily 019 2018 Inactive This refill negates all other refills of this medication levothyroxine 50 mcg tablet RxNorm: 028354 1 Tablet(s) PO daily 019 2018 Inactive This refill negates all other refills of this medication cetirizine 10 mg tablet RxNorm: 0571552 1 Tablet(s) PO daily 019 2018 Inactive This refill negates all other refills of this medication. Please do not auto refill Flintstones Complete (iron) 18 mg iron chewable tablet RxNorm: 1 Tablet(s) PO daily 019 2018 Inactive This refill negates all other refills of this medication buspirone 7.5 mg tablet RxNorm: 026078 1 Tablet(s) PO BID 019 2018 Inactive cetirizine 10 mg tablet RxNorm: 8724341 1 Tablet(s) PO daily 018 2018 Inactive Guaiasorb DM 10 mg-100 mg/5 mL oral liquid RxNorm: 664528 10 Milliliter(s) PO As needed every 4 hr 2018 Inactive Vicks Vaporub 4.7 %-1.2 %-2.6 % topical ointment RxNorm: 1218502 1 Application TOP TID 2018 Inactive levmetamfetamine 50 mg nasal inhaler RxNorm: 1 Unit(s) NASAL Q3-4H 2017 Inactive sertraline 50 mg tablet RxNorm: 708322 1 Tablet(s) PO daily 2018 Inactive Please note dose trazodone 50 mg tablet RxNorm: 191341 1 Tablet(s) PO QHS 2018 Inactive sertraline 50 mg tablet RxNorm: 871250 1 Tablet(s) PO daily 2017 Inactive amoxicillin 500 mg tablet RxNorm: 275559 1 Tablet(s) PO Q12H 2017 Inactive albuterol sulfate 2.5 mg/3 mL (0.083 %) solution for nebulization RxNorm: 181711 1 Vial INH QID 2018 Inactive 60/box. Please do not fill early. Please do not auto refill. Prozac 10 mg capsule RxNorm: 894482 1 Capsule(s) PO daily 2017 Inactive buspirone 7.5 mg tablet RxNorm: 343494 1 Tablet(s) PO BID 2018 Inactive gabapentin 300 mg capsule RxNorm: 301627 1 Capsule(s) PO TID as needed 2018 Inactive hydrochlorothiazide 12.5 mg tablet RxNorm: 467080 1 Tablet(s) PO QAM 2018 Inactive ranitidine 150 mg tablet RxNorm: 886520 1 Tablet(s) PO BID 2018 Inactive Macrobid 100 mg capsule RxNorm: 295923 1 Capsule(s) PO Q12H 018 2017 Inactive Singulair 10 mg tablet RxNorm: 577405 1 Tablet(s) PO daily 018 2018 Inactive Ventolin HFA 90 mcg/actuation aerosol inhaler RxNorm: 0363161 2 Puff(s) INH QID 018 2018 Inactive Singulair 10 mg tablet RxNorm: 330675 1 Tablet(s) PO daily 018 2017 Inactive buspirone 7.5 mg tablet RxNorm: 391741 1 Tablet(s) PO BID 018 2017 Inactive Prozac 10 mg capsule RxNorm: 672238 1 Capsule(s) PO daily 018 2017 Inactive diclofenac sodium 75 mg tablet,delayed release RxNorm: 255923 1 Tablet(s) PO BID 018 2017 Inactive lisinopril 2.5 mg tablet RxNorm: 242993 1 Tablet(s) PO daily 018 2017 Inactive Neilmed Pediatric Sinus Rinse Refill packet RxNorm: 1 Unit Dose NASAL PRN 018 2021 Inactive metoprolol succinate ER 50 mg tablet,extended release 24 hr RxNorm: 878050 1 Tablet(s) PO daily 018 2017 Inactive levothyroxine 50 mcg tablet RxNorm: 680765 1 Tablet(s) PO daily 018 2017 Inactive TRUEplus Lancets 30 gauge RxNorm: 1 Lancets Miscellaneous QAM 018 2017 Inactive 100/box Ventolin HFA 90 mcg/actuation aerosol inhaler RxNorm: 216863 2 Puff(s) INH QID 018 2017 Inactive Aleve 220 mg capsule RxNorm: 7394559 1 Capsule(s) PO BID 018 2018 Inactive ranitidine 150 mg tablet RxNorm: 435976 1 Tablet(s) PO BID 018 2017 Inactive gabapentin 300 mg capsule RxNorm: 133689 1 Capsule(s) PO TID as needed 018 2017 Inactive atorvastatin 20 mg tablet RxNorm: 444289 1 Tablet(s) PO QHS 018 2017 Inactive True Metrix Glucose Test Strip RxNorm: 1 Test Strips Miscellaneous QA 018 2017 Inactive 50/container Calcium 600-D3 Plus 600 mg calcium-800 unit-50 mg tablet RxNorm: 1 Tablet(s) PO daily take an additonal tablet for itching. 018 2017 Inactive hydrochlorothiazide 12.5 mg tablet RxNorm: 698778 1 Tablet(s) PO QAM 018 2017 Inactive Flintstones Complete (iron) 18 mg iron chewable tablet RxNorm: 1 Tablet(s) PO daily 018 2017 Inactive True Metrix Glucose Meter RxNorm: miscellaneous 019 2018 Inactive sertraline 50 mg tablet RxNorm: 581627 1 Tablet(s) PO daily 020 2019 Inactive loperamide 2 mg tablet RxNorm: 453670 oral 019 2018 Inactive d-mannose oral powder RxNorm: PO 018 2021 Inactive Symbicort 160 mcg-4.5 mcg/actuation HFA aerosol inhaler RxNorm: 2128407 2 Puff(s) INH BID 019 2018 Inactive Medication Administered No Medication Administered data Results Observation Observation Code Item Item Code Result Date Service Location CHEM 14 (METABOLIC PANEL) 74471 Glucose 2345-7 90 mg/dL 02/13/20 [facility] [address] [place] [address] CHEM 14 (METABOLIC PANEL) 43300 BUN 3094-0 15 mg/dL 02/13/20 [facility] [address] [place] [address] CHEM 14 (METABOLIC PANEL) 86278 Creatinine 2160-0 0.8 mg/dL 02/13/20 [facility] [address] [place] [address] CHEM 14 (METABOLIC PANEL) 57066 BUN/Creat Ratio 3097-3 19.1 02/13/20 [facility] [address] [place] [address] CHEM 14 (METABOLIC PANEL) 61394 GFR Estimated 49211-7 100 mL/min/1.7 3m2 02/13/20 [facility] [address] [place] [address] 02581 CHEM 14 (METABOLIC PANEL) 60971 Sodium 2951-2 139 mmol/L 02/13/20 [facility] [address] [place] [address] 40544 CHEM 14 (METABOLIC PANEL) 62219 Potassium 2823-3 4.0 mmol/L 02/13/20 [facility] [address] [place] [address] 14849 CHEM 14 (METABOLIC PANEL) 76177 Chloride 2075-0 102 mmol/L 02/13/20 [facility] [address] [place] [address] 31503 CHEM 14 (METABOLIC PANEL) 56817 Total CO2 2028-9 27 mmol/L 02/13/20 [facility] [address] [place] [address] 27195 CHEM 14 (METABOLIC PANEL) 70151 Anion Gap 1863-0 14.0 mEq/L 02/13/20 [facility] [address] [place] [address] 78495 CHEM 14 (METABOLIC PANEL) 78973 Calculated Serum Osmolality 71460-0 288 mOsm/kg 02/13/20 [facility] [address] [place] [address] 73863 CHEM 14 (METABOLIC PANEL) 12410 Albumin 12646-4 3.8 g/dL 02/13/20 [facility] [address] [place] [address] 69704 CHEM 14 (METABOLIC PANEL) 33772 Total Protein 2885-2 7.4 g/dL 02/13/20 [facility] [address] [place] [address] 66307 CHEM 14 (METABOLIC PANEL) 13813 Globulin 2336-6 3.6 g/dL 02/13/20 [facility] [address] [place] [address] 04302 CHEM 14 (METABOLIC PANEL) 41692 Albumin/Globul in Ratio 1759-0 1.1 02/13/20 [facility] [address] [place] [address] 57040 CHEM 14 (METABOLIC PANEL) 61871 ALK PHOS 6768-6 58.00 U/L 02/13/20 [facility] [address] [place] [address] 44002 CHEM 14 (METABOLIC PANEL) 29049 SGOT/AST 1920-8 14 U/L 02/13/20 22 [facility] [address] [place] [address] CHEM 14 (METABOLIC PANEL) 56219 SGPT/ALT 1743-4 30 U/L 02/13/20 [facility] [address] [place] [address] 59560 CHEM 14 (METABOLIC PANEL) 49679 Total Bilirubin 1975-2 0.4 mg/dL 02/13/20 [facility] [address] [place] [address] CHEM 14 (METABOLIC PANEL) 92160 Calcium 64298-8 9.5 mg/dL 02/13/20 [facility] [address] [place] [address] CHEM 14 (METABOLIC PANEL) 26172 Corrected Calcium 47735-5 9.8 mg/dL 02/13/20 [facility] [address] [place] [address] DIRECT LDL - CHOL 75745 LDL-Direct 23719-7 221 mg/dL 02/13/20 [facility] [address] [place] [address] 34507 R3L-WHHKKCHTAPCU BIN 4548-4 Glyco HGB A1C 93777-0 5.6 % 02/13/20 [facility] [address] [place] [address] 44337 E6V-LWOPLTFUWTEW BIN 4548-4 eAG 06230-0 114 mg/dL 02/13/20 [facility] [address] [place] [address] Procedures Procedure Codes Date Annual Wellness Visit (Subsequent Visit) CPT-4: G0439 02/11/2022 Annual Wellness Visit (Subse quent Visit) Tobacco Assessment/Never used tobacco, Chronic Opioid Use History/Never used opioids, Cognitive Screening/Detection of cognitive impairment:/No, Depression Screening (PHQ2)/Over the past two weeks, have you felt little interest or pleasure in doing things?/1- Several days, Depression Screening (PHQ2)/Over the past two weeks, have you felt down, depressed, or hopeless?/0- Not at all, Depression Screening (PHQ2)/Score:/0-2= Negative for depression (Plan NOT REQUIRED), Hearing Loss Screening/Do you have trouble hearing the tv, radio or struggle to hear/understand conversations?/No, Health Risk Assessment/In general, would you say your health is?/Good, Health Risk Assessment/Do you get enough physical activity?/No, Health Risk Assessment/Do you eat three meals a day?/Yes, Health Risk Assessment/Current diet?/Solids, Health Risk Assessment/Do you feel that you receive the social and emotional support you need?/Yes, Instrumental Activities of Daily Living/IADLs - Patient needs direct assistance, cuing, or supervision, to perform the following safely:/*No assistance, cuing, or supervision needed, Activities of Daily Living/ADLs - Patient needs direct assistance, cuing, or supervision, to perform the following safely:/*No assistance, cuing, or supervision needed, Fall Risk Assessment/Two or more falls in the past year?/No, Fall Risk Assessment/Fall with injury in the past year?/No, Preventive Screening Schedule/Preventive schedule discussed and confirmed with pt and/or caregiver. Copy given. CPT-4: B4880Cfnzben 02/11/2022 Patient Health Questionnaire CPT-4: DPHQ 01/2022 Frailty Screening CPT-4: SFD 05/20/2021 Hypertension CPT-4: HTN 04/01/2021 Tobacco Assessment/Screening CPT-4: TCA 08/2021 Patient Health Questionnaire CPT-4: DPHQ 08/2021 Mini Mental State Exam CPT-4: DMMA Annual Wellness Visit (Subsequent Visit) CPT-4: G0439 01/13/2021 Advanced Care Planning CPT-4: VACP Fall Risk Assessment SNOMED CT: 37334258 4 CPT-4: DFRA 01/13/2021 [place] F[place] Assessment CPT-4: DSWA 12/01 Urinalysis, dip stick CPT-4: 34001 09/24/2020 Patient Health Questionnaire CPT-4: DPHQ Electrocardiogram CPT-4: 72861 05/14/2020 Tobacco Assessment/Screening CPT-4: TCA Fall Risk Assessment SNOMED CT: 42059234 4 CPT-4: DFRA 01/01/2020 Functional Assessment CPT-4: DFA 01/01/2020 [place] Fany Assessment CPT-4: DSWA 11/04 Patient Health Questionnaire CPT-4: DPHQ [place] [facility] Assessment CPT-4: DSWA 10/03 Hypertension CPT-4: HTN 10/17/2019 Fall Risk Assessment SNOMED CT: 67209298 4 CPT-4: DFRA 09/19/2019 Functional Assessment CPT-4: DFA 09/19/2019 Urinalysis, dip stick CPT-4: 78861 06/21/2019 Tobacco Assessment/Screening CPT-4: TCA Patient Health Questionnaire CPT-4: DPHQ AHA/REBECCA Classification Assessment CPT-4: DAHA 04/25/2019 Controlled Substance Report CPT-4: CTRSU 04/03 Urinalysis, dip stick CPT-4: 16170 03/28/2019 Urinalysis, dip stick CPT-4: 43574 03/28/2019 C5E-Yhvsocuwhxciyyo CPT-4: 48943 Unknown E1T-Nisxuwduvnugauq CPT-4: 72369 Unknown K3Z-Hyeqtmobdqxbsbi CPT-4: 31142 Unknown I0D-Uzlrzdfcczhtzqh CPT-4: 74154 Unknown G4C-Osjagxjdhoybego CPT-4: 68313 Unknown Z1X-Xhidrjvpodbosoa CPT-4: 13543 Unknown U8G-Xajvoomdybdeehq CPT-4: 58685 Unknown A0Y-Xnblvdlwfkwjyeh CPT-4: 63707 Unknown L4W-Zqftstzxkcgnohb CPT-4: 59880 Unknown Gynecology Referral SNOMED CT: 005193279 CPT-4: R14 Unknown Vital Signs Date Vital 02/11/2022 Blood Pressure 1: 116/82 Code: 8480-6 BMI: 55.1 Code: 31840-0 Heart Rate 1: 90 bpm Height: 4'11 Code: 8302-2 Respiratory Rate: 18 bpm SpO2: 98% Temperature: 36.1 (C) / 97.0 (F) Weight: 272 lbs 12 oz Code: 75995-0 Reason For Visit Reason For Visit Effective Dates Notes diabetes mellitus 02/11/2022 hyperlipidemia disease 02/11/2022 Encounters Encounter Performer Location Location Address Codes Magdi e ([id number]) HOME VISIT EST PATIENT Diagnosis: Hypertension[ICD10 : I10] Diagnosis: Type 2 diabetes mellitus with peripheral neuropathy[ICD10: E11.42] Diagnosis: Adult BMI 50.0-59.9 kg/sq m[ICD10: Z68.43] Diagnosis: Hyperlipidemia, mixed[ICD10: E78.2] Diagnosis: Obstructive sleep apnea (adult) (pediatric)[ICD10: G47.33] Diagnosis: Allergic rhinitis[ICD10: J30.9] Diagnosis: (Z00.00-V70.9) Encounter for general adult medical examination without abnormal findings[ICD10: Z00.00] [facility] [address] [place] [address] CPT-4: 63782 02/11/2022 Plan of Care Planned Activity Notes Codes Status Date Patient Education: Patient Medication Summary Completed 02/11/2022 Patient Education: Diabetes Complete d 02/11/2022 Patient Education: AWV Preventative Screening Schedule 2020 Completed 02/11/2022 Patient Education: [employer] Card Patient Savings Message Completed 02/11/2022 Appointment: Mikey Nair WPtel: [address] [facility] 202[address] [id number] E410 12/03/2021 Appointment: Chivo Bishop WPtel: [address] [place] [address] E410 11/02/2021 Appointment: Chivo Bishop WPtel: [address] [place] [address] E410 10/07/2021 Appointment: Chivo Bishop WPtel: [address] [place] [address] [place] ETV 09/10/2021 Appointment: Chivo Bishop WPtel: [address] [place] [address] ETV 08/13/2021 Appointment: Chivo Bishop WPtel: [address] [place] [address] [place] ETV 07/06/2021 Appointment: Chivo Bishop WPtel: [address] [place] [address] PHTV 06/10/2021 Appointment: Anna Culver WPtel: [id number] [place] [address] ETV 06/02/2021 Appointment: Chivo Bishop WPtel: [address] [place] [address] ETV 05/20/2021 Appointment: Anna Culver WPtel: [address] [place] [address] ETV 04/28/2021 Appointment: Chivo Bishop WPtel: [address] [place] [address] ETV 04/15/2021 Appointment: Anna Culver WPtel: [address] [place] [address] E410 04/01/2021 Appointment: Anna Culver WPtel: [address] [place] [address] ETV 03/24/2021 Appointment: Anna Culver WPtel: [address] [place] [address] ETV 03/13/2021 Appointment: Anna Culver WPtel: [address] [place] [address] E410 02/11/2021 Appointment: Chivo Bishop WPtel: [address] [place] [address] E410 01/29/2021 Appointment: Anna Culver WPtel: [address] [place] [address] ETV 01/13/2021 Appointment: Anna Culver WPtel: [address] [place] [address] E410 12/17/2020 Appointment: Chivo Bishop WPtel: [address] [place] [address] ETV 11/28/2020 Appointment: Anna Culver WPtel: [id number] [place] [address] [place] ETV 11/24/2020 Appointment: Anna Culver WPtel: [address] [place] [address] [place] E410 10/29/2020 Appointment: Anna Culver WPtel: [address] [place] [address] [place] E410 09/24/2020 Appointment: Anna Culver WPtel: [address] [place] [address] ETV 08/26/2020 Appointment: Anna Culver WPtel: [address] [place] [address] [place] ETV 08/19/2020 Appointment: Anna Culver WPtel: [address] [place] [address] ETV 07/22/2020 Appointment: Anna Culver WPtel: [address] [place] [address] ETV 07/08/2020 Appointment: Gianna Birmingham [facility]: [address] [facility] 100 [id number] [place] ECHO 07/02/2020 Appointment: Anna Culver WPtel: [address] [place] [address] [place] E452 06/11/2020 Appointment: Anna Culver WPtel: [address] [place] [address] [place] E452 05/14/2020 Appointment: Anna Culver WPtel: [address] [place] [address] [place] E452 04/17/2020 Appointment: Anna Culver WPtel: [address] [place] [address] [place] E452 03/21/2020 Appointment: Anna Culver WPtel: [address] [place] [address] [place] E452 02/14/2020 Appointment: Anna Culver WPtel: [phone] E452 01/24/2020 Appointment: Anna Culver WPtel: [address] E452 01/01/2020 Appointment: Anna Culver WPtel: [phone] E452 11/28/2019 Appointment: Anna Culver WPtel: [address] E452 10/17/2019 Appointment: Anna Culver WPtel: [address] [place] [address] E452 09/19/2019 Appointment: Sudha Hernadez WPtel: [address] [facility] [address] [id number] E452 07/04/2019 Appointment: Sudha Hernadez WPtel: [address] [facility] [address] [id number] E452 06/21/2019 Appointment: Charlene Oropeza WPtel: [address] [facility] [address] [id number] E452 05/24/2019 Appointment: Mallory Delgado E452 04/27/2019 Appointment: Charlene Oropeza WPtel: [address] [facility] [address] [id number] E452 04/25/2019 Appointment: Rasta Palafox WPtel: [address] [facility] [address] [id number] E452 03/28/2019 Appointment: Rasta Palafox WPtel: [address] [facility] [address] [id number] E452 02/14/2019 Appointment: Rasta Palafox WPtel: [address] [facility] [address] [id number] E452 01/31/2019 Appointment: Rasta Palafox WPtel: [address] [facility] [address] [id number] E420 12/27/2018 Referral: Pending Gynecology Referral Information Referral Processed Referral: Pending Pulmonolog y Referral Information Referral Processed Referral: Pending Psychiatry Referral Information Referral Initiated Referral: Pending Respirator y Services Referral Information Referral Initiated Referral: Pending Ophthalmology Referral Information Referral Initiated Referral: [facility] WPtel: [address] [place] [address] [address] Financial Representative placed a call out to the patient to notify her that it has been recommended that she be seen by 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 Patient agreed to be seen, does not have a provider of choice and no transportation issues. Financial Representative faxed referral and clinical notes to [facility] in [place], [place] near the patient's home. Patient to [...] seen and prefers a provider in the [place] or [facility]. Financial Representative placed a call out to everyone listed in the area and the only location that was able to accept the patient's insurance was [place] [address] [place] [address] and spoke with Maylin. Maylin asked that the patient's referral, face sheet and visit notes be faxed to . Financial Representative faxed over requested documents. Patient appointment confirmation letter generated and mailed to her home address. Patient to call to schedule an appointment. Processed Referral: [facility] WPtel: [address] [place] [address] [place], [place] [id number] Patient notified that it has been advised that she be seen by Neurology. Patient agreed to be seen and prefers to be seen by a provider in the [place], [place] area. Patient denies any concerns with transportation, and prefers to schedule her own appointment. Financial Representative placed a call out to [facility] and spoke with Neeraj P: who confirmed that their office is able to accept new patients and the patient's insurance. After confirming the providers fax number, advertising copywriter faxed over the patient's referral, and [...]
--- OUTSIDE RECORDS SUMMARY | 2022-02-21 20:00 | XMS_ITS | CCD ---
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 Unknown Has never used illegal drugs 05/31/2018 DNR Order/ Advanced Directive Unknown Full Code 05/31/2018 Allergies, Adverse Reactions, Alerts Substance Reaction Codes Entered Date Inactivated Date Status OxyContin itch, RxNorm: 567713 01/13/2021 No Inactive Da te Active *No [...] ICD-10: E78. 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 non-steroidal anti-inflammatories (NSAID) ICD-10: [...] toe ICD-10: S90.416A ICD-9: 917.0 02/14/2020 Resolved [place] eye ICD-10: H10.029 ICD-9: 372.03 12/29/2019 Resolved [...] Fill Instructions levothyroxine 50 mcg tablet RxNorm: 687917 Take 1 Tablet(s) Oral every day 022 2021 Inactive atorvastatin 20 mg tablet RxNorm: 933433 Take 1 Tablet(s) Oral every night at bedtime 2021 Inactive This refill negates all other refills of this medication lisinopril 2.5 mg tablet RxNorm: 701656 Take 1 Tablet(s) Oral every day 022 2021 Inactive gabapentin 300 mg capsule RxNorm: 855399 Take 1 Capsule(s) Oral three times a day 022 2021 Inactive montelukast 10 mg tablet RxNorm: 912181 Take 1 Tablet(s) Oral every day 022 2021 Inactive cholecalciferol (vitamin D3) 50 mcg (2,000 unit) tablet RxNorm: 609842 Take 1 Tablet(s) Oral every day 022 2022 Inactive Myrbetriq 50 mg tablet,extended release RxNorm: 8097488 1 Tablet(s) Oral every day 022 No Stop Date Active Ozempic 0.25 mg or 0.5 mg (2 mg/1.5 mL) subcutaneous pen injector RxNorm: 9588339 inject 0.5 milligrams subcutaneously every week 022 2021 Inactive Ozempic 0.25 mg or 0.5 mg (2 mg/1.5 mL) subcutaneous pen injector RxNorm: 3778944 Take 0.5 Capsule(s) Injection once a week 2021 Inactive omeprazole 20 mg capsule,delayed release RxNorm: 525642 Take 1 Capsule(s) Oral every evening 2020 Inactive Ozempic 0.25 mg or 0.5 mg (2 mg/1.5 mL) subcutaneous pen injector RxNorm: 2851253 Take 0.25 Milligram(s) Subcutaneous once a week 2021 Inactive Easy Touch Alcohol Prep Pads RxNorm: 964293 USE DIRECTED EACH MORNING 2021 Inactive Probiotic 10 billion cell capsule RxNorm: 8350531 Take 1 Capsule(s) Oral every day 2021 Inactive levothyroxine 50 mcg tablet RxNorm: 901826 Take 1 Tablet(s) Oral every day 2020 Inactive Acid Tapping Machine Operator (famotidine) 20 mg tablet RxNorm: 833367 Take 1 Tablet(s) Oral every morning 2020 Inactive Heartburn Relief (famotidine) 10 mg tablet RxNorm: 796382 Take 1 Tablet(s) Oral QAM 2020 Inactive levothyroxine 50 mcg tablet RxNorm: 548438 Take 1 Tablet(s) Oral QD 2020 Inactive Singulair 10 mg tablet RxNorm: 166833 TAKE (1) TABLET BY MOUTH DAILY 2020 Inactive metformin 1,000 mg tablet RxNorm: 391643 1 Tablet(s) Oral two times a day 2021 Inactive lisinopril 2.5 mg tablet RxNorm: 943429 Take 1 Tablet(s) Oral every day 021 2020 Inactive hydrochlorothiazide 25 mg tablet RxNorm: 961210 Take 1 Tablet(s) Oral every day 2020 Inactive ondansetron 4 mg disintegrating tablet RxNorm: 863193 1 Tablet(s) Oral two times a day 021 2020 Inactive Sudafed 12 Hour 120 mg tablet,extended release RxNorm: 5624677 TAKE 1 TABLET BY MOUTH EVERY 12 HOURS NEEDED 021 2021 Inactive Heartburn Relief (famotidine) 10 mg tablet RxNorm: 884682 Take 1 Tablet(s) Oral every morning 021 2020 Inactive omeprazole 20 mg capsule,delayed release RxNorm: 207027 1 Capsule(s) Oral every evening 021 2020 Inactive sertraline 100 mg tablet RxNorm: 380382 2 Tablet(s) Oral every day 021 2020 Inactive levothyroxine 50 mcg tablet RxNorm: 275924 TAKE (1) TABLET BY MOUTH DAILY 2020 Inactive metformin 500 mg tablet RxNorm: 459094 1 Tablet(s) Oral two times a day take with 500mg to equal 1000mg 021 2020 Inactive gabapentin 300 mg capsule RxNorm: 370534 TAKE 1 CAPSULE BY MOUTH THREE TIMES A DAY 021 2020 Inactive lisinopril 2.5 mg tablet RxNorm: 301650 TAKE 1 TABLET BY MOUTH DAILY 021 2020 Inactive gabapentin 300 mg capsule RxNorm: 757097 TAKE 1 CAPSULE BY MOUTH THREE TIMES A DAY 021 2020 Inactive Singulair 10 mg tablet RxNorm: 184965 TAKE (1) TABLET BY MOUTH DAILY 021 2020 Inactive metformin 1,000 mg tablet RxNorm: 382409 1 Tablet(s) Oral two times a day 021 2020 Inactive atorvastatin 40 mg tablet RxNorm: 064832 1 Tablet(s) Oral every day 021 2020 Inactive omeprazole 20 mg capsule,delayed release RxNorm: 392882 1 Capsule(s) Oral every evening 02/24/11 Inactive famotidine 10 mg tablet RxNorm: 899759 1 Tablet(s) Oral every morning 2020 Inactive Alcohol Prep Pads RxNorm: 735080 USE EACH MORNING 021 2020 Inactive omeprazole 20 mg capsule,delayed release RxNorm: 759967 1 Capsule(s) Oral two times a day 2021 Inactive omeprazole 20 mg capsule,delayed release RxNorm: 023964 TAKE 1 CAPSULE BY MOUTH EVERY DAY 2021 Inactive Macrobid 100 mg capsule RxNorm: 740238 1 Capsule(s) Oral every 12 hours with food 2020 Inactive omeprazole 20 mg capsule,delayed release RxNorm: 352858 1 Capsule(s) Oral two times a day 2021 Inactive metformin 1,000 mg tablet RxNorm: 661555 1 Tablet(s) Oral two times a day 2020 Inactive start on September 11, 2020 metformin 500 mg tablet RxNorm: 669664 1 Tablet(s) Oral two times a day take with 500mg to equal 1000mg 2019 Inactive gabapentin 300 mg capsule RxNorm: 655460 TAKE 1 CAPSULE BY MOUTH THREE TIMES DAILY 2020 Inactive cetirizine 10 mg tablet RxNorm: 0402247 TAKE (1) TABLET BY MOUTH DAILY 2020 Inactive metformin 500 mg tablet RxNorm: 941190 1 Tablet(s) Oral two times a day 2019 Inactive loperamide 2 mg tablet RxNorm: 503409 1 Tablet(s) Oral as needed take one tablet after each loose stool, maximum of 8 tablets in 24 hours 2021 Inactive Sudafed 12 Hour 120 mg tablet,extended release RxNorm: 7171336 TAKE 1 TABLET BY MOUTH EVERY 12 HOURS NEEDED 2019 Inactive hydrochlorothiazide 25 mg tablet RxNorm: 237069 TAKE (1) TABLET BY MOUTH EVERY DAY 020 2019 Inactive omeprazole 20 mg capsule,delayed release RxNorm: 157032 TAKE 1 CAPSULE BY MOUTH EVERY DAY 020 2020 Inactive metformin 500 mg tablet RxNorm: 591760 1 Tablet(s) Oral every day 020 2019 Inactive True Metrix Glucose Test Strip RxNorm: 1 Test Strips Miscellaneous two times a day as needed No Stop Date Active metformin 500 mg tablet RxNorm: 339276 1 Tablet(s) Oral every day 020 2019 Inactive diclofenac sodium 75 mg tablet,delayed release RxNorm: 156958 1 Tablet(s) PO BID 020 2021 Inactive This refill negates all other refills of this medication Sudafed 12 Hour 120 mg tablet,extended release RxNorm: 6788941 TAKE 1 TABLET BY MOUTH EVERY 12 HOURS NEEDED 020 2019 Inactive True Metrix Glucose Test Strip RxNorm: 1 Test Strips Miscellaneous every morning 020 2019 Inactive 100/container True Metrix Glucose Test Strip RxNorm: 1 Test Strips Miscellaneous QA 020 2019 Inactive 100/container loperamide 2 mg tablet RxNorm: 771075 1 Tablet(s) Oral as needed take one tablet after each loose stool, maximum of 8 tablets in 24 hours 020 2019 Inactive cetirizine 10 mg tablet RxNorm: 4362545 1 Tablet(s) PO daily 020 2019 Inactive loperamide 2 mg tablet RxNorm: 887111 1 Tablet(s) Oral as needed take one tablet after each loose stool, maximum of 8 tablets in 24 hours 020 2019 Inactive quetiapine 100 mg tablet RxNorm: 823011 1 Tablet(s) Oral every night at bedtime 020 2019 Inactive levothyroxine 50 mcg tablet RxNorm: 037720 1 Tablet(s) PO daily 020 2020 Inactive gabapentin 300 mg capsule RxNorm: 847876 1 Capsule(s) PO TID 2019 Inactive levothyroxine 50 mcg tablet RxNorm: 975508 1 Tablet(s) PO daily 020 2019 Inactive lisinopril 2.5 mg tablet RxNorm: 593301 1 Tablet(s) PO daily 2020 Inactive gabapentin 300 mg capsule RxNorm: 513310 1 Capsule(s) PO TID 2019 Inactive cetirizine 10 mg tablet RxNorm: 1433550 1 Tablet(s) PO daily 2019 Inactive Singulair 10 mg tablet RxNorm: 366826 1 Tablet(s) PO daily 2020 Inactive gentamicin 0.3 % eye drops RxNorm: 556210 1 Drop(s) ophthalmic (eye) four times a day 2019 Inactive gentamicin 0.3 % eye drops RxNorm: 248221 1 Drop(s) ophthalmic (eye) four times a day 2019 Inactive gentamicin 0.3 % eye drops RxNorm: 036478 1 Drop(s) ophthalmic (eye) four times a day 2019 Inactive hydrochlorothiazide 25 mg tablet RxNorm: 385988 1 Tablet(s) Oral every day 2019 Inactive Sudafed 12 Hour 120 mg tablet,extended release RxNorm: 8365003 TAKE (1) TABLET BY MOUTH EVERY 12 HOURS NEEDED 2019 Inactive loperamide 2 mg tablet RxNorm: 509445 1 Tablet(s) Oral as needed take one tablet after each loose stool, maximum of 8 tablets in 24 hours 020 2019 Inactive loperamide 2 mg tablet RxNorm: 479279 1 Tablet(s) Oral as needed take one tablet after each loose stool, maximum of 8 tablets in 24 hours 020 2019 Inactive atorvastatin 40 mg tablet RxNorm: 486937 1 Tablet(s) Oral every day 020 2020 Inactive quetiapine 100 mg tablet RxNorm: 275436 1 Tablet(s) Oral every night at bedtime 2019 Inactive sertraline 100 mg tablet RxNorm: 515143 1 Tablet(s) Oral 020 2019 Inactive omeprazole 20 mg capsule,delayed release RxNorm: 808080 1 Capsule(s) Oral every day 2019 Inactive amoxicillin 250 mg capsule RxNorm: 945204 1 Capsule(s) Oral three times a day 2019 Inactive multivitamin with iron-mineral tablet RxNorm: 1 Tablet(s) Oral every day 2021 Inactive cetirizine 10 mg tablet RxNorm: 4132043 1 Tablet(s) PO daily 2019 Inactive This refill negates all other refills of this medication. Please do not auto refill Singulair 10 mg tablet RxNorm: 810535 1 Tablet(s) PO daily 2019 Inactive This refill negates all other refills of this medication gabapentin 300 mg capsule RxNorm: 895654 1 Capsule(s) PO TID 2019 Inactive lisinopril 2.5 mg tablet RxNorm: 203610 1 Tablet(s) PO daily 2019 Inactive levothyroxine 50 mcg tablet RxNorm: 036234 1 Tablet(s) PO daily 2019 Inactive This refill negates all other refills of this medication hydrochlorothiazide 25 mg tablet RxNorm: 539778 1 Tablet(s) Oral every day 2019 Inactive fenugreek seed extract 500 mg capsule RxNorm: 1 Capsule(s) Oral three times a day 2021 Inactive Alcohol Prep Pads RxNorm: 228593 1 Patch TOP QAM 020 2020 Inactive loperamide 2 mg tablet RxNorm: 029938 1 Tablet(s) Oral as needed take one [...] 2019 Inactive hydrochlorothiazide 25 mg tablet RxNorm: 726032 1 Tablet(s) Oral every day 2019 Inactive Sudafed 12 Hour 120 mg tablet,extended release RxNorm: 5422623 1 Tablet(s) Oral every 12 hours as needed 2018 Inactive omeprazole 20 mg capsule,delayed release RxNorm: 342787 1 Capsule(s) Oral every day 2019 Inactive Sudafed 12 Hour 120 mg tablet,extended release RxNorm: 3774723 1 Tablet(s) Oral every 12 hours as needed 019 2018 Inactive pantoprazole 40 mg tablet,delayed release RxNorm: 082175 1 Tablet(s) Oral every day 2018 Inactive discontinue any other H2Blkr. and PPI albuterol sulfate 2.5 mg/3 mL (0.083 %) solution for nebulization RxNorm: 228463 1 Vial Inhalation every four hours as needed as needed for dyspnea 2019 Inactive 60/box. This refill negates all other refills of this medication. Please do not fill early. Please do not auto refill. Symbicort 160 mcg-4.5 mcg/actuation HFA aerosol inhaler RxNorm: 9659226 2 Puff(s) INH BID No Stop Date Active Alcohol Prep Pads RxNorm: 024430 1 Patch TOP QAM 019 2019 Inactive Ventolin HFA 90 mcg/actuation aerosol inhaler RxNorm: 438038 2 Puff(s) INH QID 019 2019 Inactive Please do not fill early. Please do not auto refill. This refill negates all other refills of this medication True Metrix Glucose Test Strip RxNorm: 1 Test Strips Miscellaneous QA 019 2019 Inactive 100/container atorvastatin 40 mg tablet RxNorm: 999731 1 Tablet(s) Oral every day 019 2019 Inactive buspirone 7.5 mg tablet RxNorm: 421682 1 Tablet(s) PO BID 019 2020 Inactive This refill negates all other refills of this medication hydrochlorothiazide 12.5 mg tablet RxNorm: 037481 1 Tablet(s) PO QAM 019 2019 Inactive levmetamfetamine 50 mg nasal inhaler RxNorm: 1 Unit(s) NASAL Q3-4H Do not use more than every 3 hours or 8 times/24hours 019 2021 Inactive Please do not auto refill. This refill negates all other refills of this medication Ventolin HFA 90 mcg/actuation aerosol inhaler RxNorm: 791947 2 Puff(s) INH QID 019 2018 Inactive Please do not fill early. Please do not auto refill. This refill negates all other refills of this medication Singulair 10 mg tablet RxNorm: 110418 1 Tablet(s) PO daily 019 2019 Inactive This refill negates all other refills of this medication cetirizine 10 mg tablet RxNorm: 4730300 1 Tablet(s) PO daily 019 2019 Inactive This refill negates all other refills of this medication. Please do not auto refill levothyroxine 50 mcg tablet RxNorm: 298640 1 Tablet(s) PO daily 019 2019 Inactive This refill negates all other refills of this medication diclofenac sodium 75 mg tablet,delayed release RxNorm: 079373 1 Tablet(s) PO BID 019 2019 Inactive This refill negates all other refills of this medication ranitidine 150 mg tablet RxNorm: 352097 1 Tablet(s) PO BID 019 2018 Inactive This refill negates all other refills of this medication Calcium 600-D3 Plus (mag-zinc) 600 mg calcium-800 unit-50 mg tablet RxNorm: 1 Tablet(s) PO daily take an additonal tablet for itching. 019 2018 Inactive This refill negates all other refills of this medication albuterol sulfate 2.5 mg/3 mL (0.083 %) solution for nebulization RxNorm: 553978 1 Vial INH QID 019 2018 Inactive 60/box. This refill negates all other refills of this medication. Please do not fill early. Please do not auto refill. lisinopril 2.5 mg tablet RxNorm: 715822 1 Tablet(s) PO daily 019 2019 Inactive gabapentin 300 mg capsule RxNorm: 140539 1 Capsule(s) PO TID 019 2019 Inactive atorvastatin 20 mg tablet RxNorm: 714261 1 Tablet(s) PO QHS 019 2018 Inactive This refill negates all other refills of this medication TRUEplus Lancets 30 gauge RxNorm: 1 Lancets Miscellaneous QAM 019 2018 Inactive 100/box gabapentin 300 mg capsule RxNorm: 657071 1 Capsule(s) PO TID 019 2018 Inactive Flintstones Complete (iron) 18 mg iron chewable tablet RxNorm: 1 Tablet(s) PO daily 019 2021 Inactive This refill negates all other refills of this medication gabapentin 300 mg capsule RxNorm: 406784 1 Capsule(s) PO TID as needed 019 2018 Inactive True Metrix Glucose Test Strip RxNorm: 1 Test Strips Miscellaneous QAM 019 2018 Inactive 100/container Alcohol Prep Pads RxNorm: 467567 1 Patch TOP [facility] 019 2018 Inactive TRUEplus Lancets 30 gauge RxNorm: 1 Lancets Miscellaneous QA 019 2018 Inactive 100/box lisinopril 2.5 mg tablet RxNorm: 624224 1 Tablet(s) PO daily 019 2018 Inactive ranitidine 150 mg tablet RxNorm: 564373 1 Tablet(s) PO BID 019 2018 Inactive This refill negates all other refills of this medication albuterol sulfate 2.5 mg/3 mL (0.083 %) solution for nebulization RxNorm: 778045 1 Vial INH QID 019 2018 Inactive [...] this medication gabapentin 300 mg capsule RxNorm: 177621 1 Capsule(s) PO TID as needed 019 2018 Inactive atorvastatin 20 mg tablet RxNorm: 435907 1 Tablet(s) PO QHS 019 2018 Inactive This refill negates all other refills of this medication trazodone 50 mg tablet RxNorm: 299519 1 Tablet(s) PO QHS 019 2018 Inactive This refill negates all other refills of this medication Ventolin HFA 90 mcg/actuation aerosol inhaler RxNorm: 916922 2 Puff(s) INH QID 019 2018 Inactive Please do not fill early. Please do not auto refill. This refill negates all other refills of this medication Calcium 600-D3 Plus 600 mg calcium-800 unit-50 mg tablet RxNorm: 1 Tablet(s) PO daily take an additonal tablet for itching. 019 2018 Inactive This refill negates all other refills of this medication Singulair 10 mg tablet RxNorm: 745269 1 Tablet(s) PO daily 019 2018 Inactive This refill negates all other refills of this medication buspirone 7.5 mg tablet RxNorm: 937627 1 Tablet(s) PO BID 019 2018 Inactive This refill negates all other refills of this medication diclofenac sodium 75 mg tablet,delayed release RxNorm: 171272 1 Tablet(s) PO BID 019 2018 Inactive This refill negates all other refills of this medication hydrochlorothiazide 12.5 mg tablet RxNorm: 575492 1 Tablet(s) PO QAM 019 2018 Inactive metoprolol succinate ER 50 mg tablet,extended release 24 hr RxNorm: 890009 1 Tablet(s) PO daily 019 2018 Inactive This refill negates all other refills of this medication levothyroxine 50 mcg tablet RxNorm: 393647 1 Tablet(s) PO daily 019 2018 Inactive This refill negates all other refills of this medication cetirizine 10 mg tablet RxNorm: 4227403 1 Tablet(s) PO daily 019 2018 Inactive This refill negates all other refills of this medication. Please do not auto refill Flintstones Complete (iron) 18 mg iron chewable tablet RxNorm: 1 Tablet(s) PO daily 019 2018 Inactive This refill negates all other refills of this medication buspirone 7.5 mg tablet RxNorm: 123767 1 Tablet(s) PO BID 019 2018 Inactive cetirizine 10 mg tablet RxNorm: 0550569 1 Tablet(s) PO daily 018 2018 Inactive Guaiasorb DM 10 mg-100 mg/5 mL oral liquid RxNorm: 091098 10 Milliliter(s) PO As needed every 4 hr 2018 Inactive Vicks Vaporub 4.7 %-1.2 %-2.6 % topical ointment RxNorm: 9892233 1 Application TOP TID 2018 Inactive levmetamfetamine 50 mg nasal inhaler RxNorm: 1 Unit(s) NASAL Q3-4H 2017 Inactive sertraline 50 mg tablet RxNorm: 423342 1 Tablet(s) PO daily 2018 Inactive Please note dose trazodone 50 mg tablet RxNorm: 951758 1 Tablet(s) PO QHS 2018 Inactive sertraline 50 mg tablet RxNorm: 466933 1 Tablet(s) PO daily 2017 Inactive amoxicillin 500 mg tablet RxNorm: 055561 1 Tablet(s) PO Q12H 2017 Inactive albuterol sulfate 2.5 mg/3 mL (0.083 %) solution for nebulization RxNorm: 163624 1 Vial INH QID 2018 Inactive 60/box. Please do not fill early. Please do not auto refill. Prozac 10 mg capsule RxNorm: 914109 1 Capsule(s) PO daily 2017 Inactive buspirone 7.5 mg tablet RxNorm: 894785 1 Tablet(s) PO BID 2018 Inactive gabapentin 300 mg capsule RxNorm: 102148 1 Capsule(s) PO TID as needed 2018 Inactive hydrochlorothiazide 12.5 mg tablet RxNorm: 726729 1 Tablet(s) PO QAM 2018 Inactive ranitidine 150 mg tablet RxNorm: 003811 1 Tablet(s) PO BID 2018 Inactive Macrobid 100 mg capsule RxNorm: 932734 1 Capsule(s) PO Q12H 06/25/ 2018 Inactive Singulair 10 mg tablet RxNorm: 094587 1 Tablet(s) PO daily 018 2018 Inactive Ventolin HFA 90 mcg/actuation aerosol inhaler RxNorm: 9612455 2 Puff(s) INH QID 018 2018 Inactive Singulair 10 mg tablet RxNorm: 687293 1 Tablet(s) PO daily 018 2017 Inactive buspirone 7.5 mg tablet RxNorm: 411763 1 Tablet(s) PO BID 018 2017 Inactive Prozac 10 mg capsule RxNorm: 536617 1 Capsule(s) PO daily 018 2017 Inactive diclofenac sodium 75 mg tablet,delayed release RxNorm: 885848 1 Tablet(s) PO BID 018 2017 Inactive lisinopril 2.5 mg tablet RxNorm: 321719 1 Tablet(s) PO daily 018 2017 Inactive Neilmed Pediatric Sinus Rinse Refill packet RxNorm: 1 Unit Dose NASAL PRN 018 2021 Inactive metoprolol succinate ER 50 mg tablet,extended release 24 hr RxNorm: 734961 1 Tablet(s) PO daily 018 2017 Inactive levothyroxine 50 mcg tablet RxNorm: 169459 1 Tablet(s) PO daily 018 2017 Inactive TRUEplus Lancets 30 gauge RxNorm: 1 Lancets Miscellaneous QAM 018 2017 Inactive 100/box Ventolin HFA 90 mcg/actuation aerosol inhaler RxNorm: 195779 2 Puff(s) INH QID 018 2017 Inactive Aleve 220 mg capsule RxNorm: 5530325 1 Capsule(s) PO BID 018 2018 Inactive ranitidine 150 mg tablet RxNorm: 909135 1 Tablet(s) PO BID 018 2017 Inactive gabapentin 300 mg capsule RxNorm: 053844 1 Capsule(s) PO TID as needed 018 2017 Inactive atorvastatin 20 mg tablet RxNorm: 393323 1 Tablet(s) PO QHS 018 2017 Inactive True Metrix Glucose Test Strip RxNorm: 1 Test Strips Miscellaneous QAM 018 2017 Inactive 50/container Calcium 600-D3 Plus 600 mg calcium-800 unit-50 mg tablet RxNorm: 1 Tablet(s) PO daily take an additonal tablet for itching. 018 2017 Inactive hydrochlorothiazide 12.5 mg tablet RxNorm: 078923 1 Tablet(s) PO QAM 018 2017 Inactive Flintstones Complete (iron) 18 mg iron chewable tablet RxNorm: 1 Tablet(s) PO daily 018 2017 Inactive True Metrix Glucose Meter RxNorm: miscellaneous 019 2018 Inactive sertraline 50 mg tablet RxNorm: 856806 1 Tablet(s) PO daily 020 2019 Inactive loperamide 2 mg tablet RxNorm: 288690 oral 019 2018 Inactive d-mannose oral powder RxNorm: PO 018 2021 Inactive Symbicort 160 mcg-4.5 mcg/actuation HFA aerosol inhaler RxNorm: 9220312 2 Puff(s) INH BID 019 2018 Inactive Medication Administered No Medication Administered data Procedures Procedure Codes Date Annual Wellness Visit (Subsequent Visit) CPT-4: G0439 02/11/2022 Patient Health Questionnaire CPT-4: DPHQ 01/2022 Frailty Screening CPT-4: SFD 05/20/2021 Hypertension CPT-4: HTN 04/01/2021 Tobacco Assessment/Screening CPT-4: TCA 08/2021 Patient Health Questionnaire CPT-4: DPHQ 08/2021 Mini Mental State Exam CPT-4: DMMA Annual Wellness Visit (Subsequent Visit) CPT-4: G0439 01/13/2021 Advanced Care Planning CPT-4: VACP 04/13/202 1 Fall Risk Assessment SNOMED CT: 96327081 4 CPT-4: DFRA 01/13/2021 [place] Fany Assessment CPT-4: DSWA 12/01 Urinalysis, dip stick CPT-4: 77736 09/24/2020 Patient Health Questionnaire CPT-4: DPHQ Electrocardiogram CPT-4: 20832 05/14/2020 Tobacco Assessment/Screening CPT-4: TCA Fall Risk Assessment SNOMED CT: 42437999 4 CPT-4: DFRA 01/01/2020 Functional Assessment CPT-4: DFA 01/01/2020 [place] Fnay Assessment CPT-4: DSWA 11/04 Patient Health Questionnaire CPT-4: DPHQ [place] Fany Assessment CPT-4: DSWA 10/03 Hypertension CPT-4: HTN 10/17/2019 Fall Risk Assessment SNOMED CT: 48546106 4 CPT-4: DFRA 09/19/2019 Functional Assessment CPT-4: DFA 09/19/2019 Urinalysis, dip stick CPT-4: 63747 06/21/2019 Tobacco Assessment/Screening CPT-4: TCA Patient Health Questionnaire CPT-4: DPHQ AHA/REBECCA Classification Assessment CPT-4: DAHA 04/25/2019 Controlled Substance Report CPT-4: CTRSU 04/03 Urinalysis, dip stick CPT-4: 16743 03/28/2019 Urinalysis, dip stick CPT-4: 77129 03/28/2019 E2F-Mqiibimoraojrat CPT-4: 21025 Unknown W1T-Ozyvsqhftjwqemw CPT-4: 99686 Unknown A8N-Zietgwqbkuyjart CPT-4: 88427 Unknown H2P-Idbsuzpmxqhkddn CPT-4: 79703 Unknown N7Y-Pxzllzngpoaruxr CPT-4: 39086 Unknown K3K-Lnfnrzgblsxzjag CPT-4: 58789 Unknown A1D-Umcssgxdusioxgo CPT-4: 94343 Unknown C4X-Gxgxrnvtmhkmpju CPT-4: 20419 Unknown K9P-Ewwulcamxpbwiin CPT-4: 30080 Unknown Gynecology Referral SNOMED CT: 198344064 CPT-4: R14 Unknown Reason For Visit No Reason For Visit data Plan of Care Planned Activity Notes Codes Status Date Referral: Pending Gynecology Referral Information Referral Processed Referral: Pending Pulmonolog y Referral Information Referral Processed Referral: Pending Psychiatry Referral Information Referral Initiated Referral: Pending Respirator y Services Referral Information Referral Initiated Referral: Pending Ophthalmol ogy Referral Information Referral Initiated Referral: [facility] WPtel: [phone] [facility] [address] Bag Presser placed a call out to the patient to notify her that it has been recommended that she be seen by 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 Patient agreed to be seen, does not have a provider of choice and no transportation issues. Bag Presser faxed referral and clinical notes to [facility] in [place], [place] near the patient's home. Patient to [...] a provider in the [place] or [place] area. Bag Presser placed a call out to everyone listed in the area and the only location that was able to accept the patient's insurance was [address] [id number] and spoke with Maylin. Maylin asked that the patient's referral, face sheet and visit notes be faxed to . Bag Presser faxed over requested documents. Patient appointment confirmation letter generated and mailed to her home address. Patient to call to schedule an appointment. Processed Referral: [facility] WPtel: [phone] [facility] [address] [place] [address] Patient notified that it has been advised that she be seen by Neurology. Patient agreed to be seen and prefers to be seen by a provider in the [place], [place] area. Patient denies any concerns with transportation, and prefers to schedule her own appointment. [employer] placed a call out to [facility] and spoke with Neeraj Mcfarland: [...]
--- OUTSIDE RECORDS SUMMARY | 2022-04-02 20:00 | XMS_ITS | CCD ---
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 Turntable Operator Name Role Phone Palomo KING, Anna Primary Care Provider Unav ailable Unavailable Chronic Care Management Unavaila ble Summary Purpose DataExchange Insurance Providers Payer name Policy type / Coverage type Covered democrat ID Effective Begin Date Effective End Date SUKI MAYO [id number] Unknown Unknown Family history Mother Diagnosis Age [...] Unknown Disability 05/31/[address]: 374393105 Has never s moked or chewed tobacco 05/31/[address]: 669695540 Never drinks alco hol 05/31/2018 Has the patient ever used illegal drugs? Unknown Has never used illegal drugs 05/31/2018 DNR Order/ Advanced Directive Unknown Full Code 05/31/2018 Allergies, Adverse Reactions, Alerts Substance Reaction Codes Entered Date Inactivated Date Status OxyContin itch, RxNorm: 524062 01/13/2021 No Inactive Da te Active *No [...] ICD-10: E78. 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) [...] ICD-10: R51 ICD-9: 784.0 10/03/2018 Inactive Other [facility] (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 ICD-10: Z79.899 ICD-9: V58.69 04/25/2019 Inactive Type 2 diabetes mellitus wit hout complications ICD-10: E11.9 ICD-9: 250.00 10/03/2018 Inactive Wheezing ICD-10: R06.2 ICD-9: 786.07 08/08/2018 Inactive Abnormal urine finding ICD-10: R82.90 ICD-9: 791.9 09/24/2020 Resolved Abrasion of toe ICD-10: S90.416A ICD-9: 917.0 02/14/2020 Resolved [place] eye ICD-10: H10.029 ICD-9: 372.03 12/29/2019 Resolved [...] (2 mg/1.5 mL) subcutaneous pen injector RxNorm: 7252688 INJECT 0.5 MGS SUBCUTANEOUSLY EVERY WEEK 022 2021 Inactive omeprazole 20 mg capsule,delayed release RxNorm: 004768 Take 1 Capsule(s) Oral every evening 022 2021 Inactive levothyroxine 50 mcg tablet RxNorm: 240441 Take 1 Tablet(s) Oral every day 022 2021 Inactive atorvastatin 20 mg tablet RxNorm: 067339 Take 1 Tablet(s) Oral every night at bedtime 2021 Inactive This refill negates all other refills of this medication lisinopril 2.5 mg tablet RxNorm: 260784 Take 1 Tablet(s) Oral every day 022 2021 Inactive gabapentin 300 mg capsule RxNorm: 308585 Take 1 Capsule(s) Oral three times a day 022 2021 Inactive montelukast 10 mg tablet RxNorm: 540499 Take 1 Tablet(s) Oral every day 022 2021 Inactive cholecalciferol (vitamin D3) 50 mcg (2,000 unit) tablet RxNorm: 497370 Take 1 Tablet(s) Oral every day 022 2022 Inactive Myrbetriq 50 mg tablet,extended release RxNorm: 3516978 1 Tablet(s) Oral every day No Stop Date Active Ozempic 0.25 mg or 0.5 mg (2 mg/1.5 mL) subcutaneous pen injector RxNorm: 3612044 inject 0.5 milligrams subcutaneously every week 2021 Inactive Ozempic 0.25 mg or 0.5 mg (2 mg/1.5 mL) subcutaneous pen injector RxNorm: 9165235 Take 0.5 Capsule(s) Injection once a week 2021 Inactive omeprazole 20 mg capsule,delayed release RxNorm: 482724 Take 1 Capsule(s) Oral every evening 2020 Inactive Ozempic 0.25 mg or 0.5 mg (2 mg/1.5 mL) subcutaneous pen injector RxNorm: 0547980 Take 0.25 Milligram(s) Subcutaneous once a week 2021 Inactive Easy Touch Alcohol Prep Pads RxNorm: 886117 USE DIRECTED EACH MORNING 2021 Inactive Probiotic 10 billion cell capsule RxNorm: 6603935 Take 1 Capsule(s) Oral every day 2021 Inactive levothyroxine 50 mcg tablet RxNorm: 233471 Take 1 Tablet(s) Oral every day 2020 Inactive Acid Home Therapy Teacher (famotidine) 20 mg tablet RxNorm: 813733 Take 1 Tablet(s) Oral every morning 2020 Inactive Heartburn Relief (famotidine) 10 mg tablet RxNorm: 258257 Take 1 Tablet(s) Oral QAM 2020 Inactive levothyroxine 50 mcg tablet RxNorm: 018502 Take 1 Tablet(s) Oral QD 021 2020 Inactive Singulair 10 mg tablet RxNorm: 305111 TAKE (1) TABLET BY MOUTH DAILY 2020 Inactive metformin 1,000 mg tablet RxNorm: 111113 1 Tablet(s) Oral two times a day 021 2021 Inactive lisinopril 2.5 mg tablet RxNorm: 112299 Take 1 Tablet(s) Oral every day 021 2020 Inactive hydrochlorothiazide 25 mg tablet RxNorm: 519162 Take 1 Tablet(s) Oral every day 021 2020 Inactive ondansetron 4 mg disintegrating tablet RxNorm: 943236 1 Tablet(s) Oral two times a day 021 2020 Inactive Sudafed 12 Hour 120 mg tablet,extended release RxNorm: 3065386 TAKE 1 TABLET BY MOUTH EVERY 12 HOURS NEEDED 2021 Inactive Heartburn Relief (famotidine) 10 mg tablet RxNorm: 035660 Take 1 Tablet(s) Oral every morning 021 2020 Inactive omeprazole 20 mg capsule,delayed release RxNorm: 658314 1 Capsule(s) Oral every evening 021 2020 Inactive sertraline 100 mg tablet RxNorm: 979933 2 Tablet(s) Oral every day 021 2020 Inactive levothyroxine 50 mcg tablet RxNorm: 270734 TAKE (1) TABLET BY MOUTH DAILY 021 2020 Inactive metformin 500 mg tablet RxNorm: 818923 1 Tablet(s) Oral two times a day take with 500mg to equal 1000mg 021 2020 Inactive gabapentin 300 mg capsule RxNorm: 705439 TAKE 1 CAPSULE BY MOUTH THREE TIMES A DAY 021 2020 Inactive lisinopril 2.5 mg tablet RxNorm: 230882 TAKE 1 TABLET BY MOUTH DAILY 021 2020 Inactive gabapentin 300 mg capsule RxNorm: 513931 TAKE 1 CAPSULE BY MOUTH THREE TIMES A DAY 021 2020 Inactive Singulair 10 mg tablet RxNorm: 061183 TAKE (1) TABLET BY MOUTH DAILY 021 2020 Inactive metformin 1,000 mg tablet RxNorm: 315047 1 Tablet(s) Oral two times a day 021 2020 Inactive atorvastatin 40 mg tablet RxNorm: 509548 1 Tablet(s) Oral every day 021 2020 Inactive omeprazole 20 mg capsule,delayed release RxNorm: 821151 1 Capsule(s) Oral every evening 2020 Inactive famotidine 10 mg tablet RxNorm: 407157 1 Tablet(s) Oral every morning 021 2020 Inactive Alcohol Prep Pads RxNorm: 859870 USE EACH MORNING 021 2020 Inactive omeprazole 20 mg capsule,delayed release RxNorm: 328745 1 Capsule(s) Oral two times a day 2021 Inactive omeprazole 20 mg capsule,delayed release RxNorm: 791107 TAKE 1 CAPSULE BY MOUTH EVERY DAY 2021 Inactive Macrobid 100 mg capsule RxNorm: 025751 1 Capsule(s) Oral every 12 hours with food 2020 Inactive omeprazole 20 mg capsule,delayed release RxNorm: 466220 1 Capsule(s) Oral two times a day 2021 Inactive metformin 1,000 mg tablet RxNorm: 269611 1 Tablet(s) Oral two times a day 2020 Inactive start on September 11, 2020 metformin 500 mg tablet RxNorm: 967477 1 Tablet(s) Oral two times a day take with 500mg to equal 1000mg 2019 Inactive gabapentin 300 mg capsule RxNorm: 533192 TAKE 1 CAPSULE BY MOUTH THREE TIMES DAILY 2020 Inactive cetirizine 10 mg tablet RxNorm: 1354939 TAKE (1) TABLET BY MOUTH DAILY 020 2020 Inactive metformin 500 mg tablet RxNorm: 965711 1 Tablet(s) Oral two times a day 2019 Inactive loperamide 2 mg tablet RxNorm: 943133 1 Tablet(s) Oral as needed take one tablet after each loose stool, maximum of 8 tablets in 24 hours 020 2021 Inactive Sudafed 12 Hour 120 mg tablet,extended release RxNorm: 5807450 TAKE 1 TABLET BY MOUTH EVERY 12 HOURS NEEDED 020 2019 Inactive hydrochlorothiazide 25 mg tablet RxNorm: 023775 TAKE (1) TABLET BY MOUTH EVERY DAY 020 2019 Inactive omeprazole 20 mg capsule,delayed release RxNorm: 626984 TAKE 1 CAPSULE BY MOUTH EVERY DAY 020 2020 Inactive metformin 500 mg tablet RxNorm: 957028 1 Tablet(s) Oral every day 020 2019 Inactive True Metrix Glucose Test Strip RxNorm: 1 Test Strips Miscellaneous two times a day as needed No Stop Date Active metformin 500 mg tablet RxNorm: 866644 1 Tablet(s) Oral every day 2019 Inactive diclofenac sodium 75 mg tablet,delayed release RxNorm: 715858 1 Tablet(s) PO BID 2021 Inactive This refill negates all other refills of this medication Sudafed 12 Hour 120 mg tablet,extended release RxNorm: 0308441 TAKE 1 TABLET BY MOUTH EVERY 12 HOURS NEEDED 020 2019 Inactive True Metrix Glucose Test Strip RxNorm: 1 Test Strips Miscellaneous every morning 020 2019 Inactive 100/container True Metrix Glucose Test Strip RxNorm: 1 Test Strips Miscellaneous QA 020 2019 Inactive 100/container loperamide 2 mg tablet RxNorm: 583983 1 Tablet(s) Oral as needed take one tablet after each loose stool, maximum of 8 tablets in 24 hours 020 2019 Inactive cetirizine 10 mg tablet RxNorm: 5873396 1 Tablet(s) PO daily 020 2019 Inactive loperamide 2 mg tablet RxNorm: 175248 1 Tablet(s) Oral as needed take one tablet after each loose stool, maximum of 8 tablets in 24 hours 2019 Inactive quetiapine 100 mg tablet RxNorm: 700797 1 Tablet(s) Oral every night at bedtime 2019 Inactive levothyroxine 50 mcg tablet RxNorm: 889704 1 Tablet(s) PO daily 2020 Inactive gabapentin 300 mg capsule RxNorm: 668553 1 Capsule(s) PO TID 2019 Inactive levothyroxine 50 mcg tablet RxNorm: 583170 1 Tablet(s) PO daily 2019 Inactive lisinopril 2.5 mg tablet RxNorm: 953169 1 Tablet(s) PO daily 2020 Inactive gabapentin 300 mg capsule RxNorm: 846614 1 Capsule(s) PO TID 2019 Inactive cetirizine 10 mg tablet RxNorm: 8755014 1 Tablet(s) PO daily 2019 Inactive Singulair 10 mg tablet RxNorm: 221330 1 Tablet(s) PO daily 2020 Inactive gentamicin 0.3 % eye drops RxNorm: 144566 1 Drop(s) ophthalmic (eye) four times a day 2019 Inactive gentamicin 0.3 % eye drops RxNorm: 861614 1 Drop(s) ophthalmic (eye) four times a day 2019 Inactive gentamicin 0.3 % eye drops RxNorm: 343481 1 Drop(s) ophthalmic (eye) four times a day 2019 Inactive hydrochlorothiazide 25 mg tablet RxNorm: 171357 1 Tablet(s) Oral every day 2019 Inactive Sudafed 12 Hour 120 mg tablet,extended release RxNorm: 7629010 TAKE (1) TABLET BY MOUTH EVERY 12 HOURS NEEDED 2019 Inactive loperamide 2 mg tablet RxNorm: 930820 1 Tablet(s) Oral as needed take one tablet after each loose stool, maximum of 8 tablets in 24 hours 2019 Inactive loperamide 2 mg tablet RxNorm: 931765 1 Tablet(s) Oral as needed take one tablet after each loose stool, maximum of 8 tablets in 24 hours 020 2019 Inactive atorvastatin 40 mg tablet RxNorm: 039831 1 Tablet(s) Oral every day 2020 Inactive quetiapine 100 mg tablet RxNorm: 042687 1 Tablet(s) Oral every night at bedtime 2019 Inactive sertraline 100 mg tablet RxNorm: 822276 1 Tablet(s) Oral 2019 Inactive omeprazole 20 mg capsule,delayed release RxNorm: 514192 1 Capsule(s) Oral every day 2019 Inactive amoxicillin 250 mg capsule RxNorm: 809051 1 Capsule(s) Oral three times a day 2019 Inactive multivitamin with iron-mineral tablet RxNorm: 1 Tablet(s) Oral every day 2021 Inactive cetirizine 10 mg tablet RxNorm: 0291088 1 Tablet(s) PO daily 2019 Inactive This refill negates all other refills of this medication. Please do not auto refill Singulair 10 mg tablet RxNorm: 841335 1 Tablet(s) PO daily 2019 Inactive This refill negates all other refills of this medication gabapentin 300 mg capsule RxNorm: 411179 1 Capsule(s) PO TID 2019 Inactive lisinopril 2.5 mg tablet RxNorm: 324744 1 Tablet(s) PO daily 2019 Inactive levothyroxine 50 mcg tablet RxNorm: 071770 1 Tablet(s) PO daily 2019 Inactive This refill negates all other refills of this medication hydrochlorothiazide 25 mg tablet RxNorm: 314844 1 Tablet(s) Oral every day 2019 Inactive fenugreek seed extract 500 mg capsule RxNorm: 1 Capsule(s) Oral three times a day 2021 Inactive Alcohol Prep Pads RxNorm: 621301 1 Patch TOP QAM 2020 Inactive loperamide 2 mg tablet RxNorm: 447547 1 Tablet(s) Oral as needed take one [...] 2019 Inactive hydrochlorothiazide 25 mg tablet RxNorm: 126669 1 Tablet(s) Oral every day 2019 Inactive Sudafed 12 Hour 120 mg tablet,extended release RxNorm: 0257034 1 Tablet(s) Oral every 12 hours as needed 2018 Inactive omeprazole 20 mg capsule,delayed release RxNorm: 310635 1 Capsule(s) Oral every day 2019 Inactive Sudafed 12 Hour 120 mg tablet,extended release RxNorm: 5279463 1 Tablet(s) Oral every 12 hours as needed 2018 Inactive pantoprazole 40 mg tablet,delayed release RxNorm: 308829 1 Tablet(s) Oral every day 2018 Inactive discontinue any other H2Blkr. and PPI albuterol sulfate 2.5 mg/3 mL (0.083 %) solution for nebulization RxNorm: 722661 1 Vial Inhalation every four hours as needed as needed for dyspnea 2019 Inactive 60/box. This refill negates all other refills of this medication. Please do not fill early. Please do not auto refill. Symbicort 160 mcg-4.5 mcg/actuation HFA aerosol inhaler RxNorm: 1751338 2 Puff(s) INH BID 019 No Stop Date Active Alcohol Prep Pads RxNorm: 382861 1 Patch TOP QAM 019 2019 Inactive Ventolin HFA 90 mcg/actuation aerosol inhaler RxNorm: 254651 2 Puff(s) INH QID 019 2019 Inactive Please do not fill early. Please do not auto refill. This refill negates all other refills of this medication True Metrix Glucose Test Strip RxNorm: 1 Test Strips Miscellaneous QAM 019 2019 Inactive 100/container atorvastatin 40 mg tablet RxNorm: 140292 1 Tablet(s) Oral every day 019 2019 Inactive buspirone 7.5 mg tablet RxNorm: 821729 1 Tablet(s) PO BID 019 2020 Inactive This refill negates all other refills of this medication hydrochlorothiazide 12.5 mg tablet RxNorm: 054585 1 Tablet(s) PO QAM 019 2019 Inactive levmetamfetamine 50 mg nasal inhaler RxNorm: 1 Unit(s) NASAL Q3-4H Do not use more than every 3 hours or 8 times/24hours 019 2021 Inactive Please do not auto refill. This refill negates all other refills of this medication Ventolin HFA 90 mcg/actuation aerosol inhaler RxNorm: 918387 2 Puff(s) INH QID 019 2018 Inactive Please do not fill early. Please do not auto refill. This refill negates all other refills of this medication Singulair 10 mg tablet RxNorm: 448534 1 Tablet(s) PO daily 019 2019 Inactive This refill negates all other refills of this medication cetirizine 10 mg tablet RxNorm: 3992405 1 Tablet(s) PO daily 019 2019 Inactive This refill negates all other refills of this medication. Please do not auto refill levothyroxine 50 mcg tablet RxNorm: 955571 1 Tablet(s) PO daily 019 2019 Inactive This refill negates all other refills of this medication diclofenac sodium 75 mg tablet,delayed release RxNorm: 890049 1 Tablet(s) PO BID 019 2019 Inactive This refill negates all other refills of this medication ranitidine 150 mg tablet RxNorm: 308762 1 Tablet(s) PO BID 019 2018 Inactive This refill negates all other refills of this medication Calcium 600-D3 Plus (mag-zinc) 600 mg calcium-800 unit-50 mg tablet RxNorm: 1 Tablet(s) PO daily take an additonal tablet for itching. 2018 Inactive This refill negates all other refills of this medication albuterol sulfate 2.5 mg/3 mL (0.083 %) solution for nebulization RxNorm: 603812 1 Vial INH QID 2018 Inactive 60/box. This refill negates all other refills of this medication. Please do not fill early. Please do not auto refill. lisinopril 2.5 mg tablet RxNorm: 230334 1 Tablet(s) PO daily 019 2019 Inactive gabapentin 300 mg capsule RxNorm: 761494 1 Capsule(s) PO TID 019 2019 Inactive atorvastatin 20 mg tablet RxNorm: 286419 1 Tablet(s) PO QHS 2018 Inactive This refill negates all other refills of this medication TRUEplus Lancets 30 gauge RxNorm: 1 Lancets Miscellaneous QAM 019 2018 Inactive 100/box gabapentin 300 mg capsule RxNorm: 314752 1 Capsule(s) PO TID 019 2018 Inactive Flintstones Complete (iron) 18 mg iron chewable tablet RxNorm: 1 Tablet(s) PO daily 019 2021 Inactive This refill negates all other refills of this medication gabapentin 300 mg capsule RxNorm: 774661 1 Capsule(s) PO TID as needed 019 2018 Inactive True Metrix Glucose Test Strip RxNorm: 1 Test Strips Miscellaneous QAM 2018 Inactive 100/container Alcohol Prep Pads RxNorm: 612867 1 Patch TOP QAM 019 2018 Inactive TRUEplus Lancets 30 gauge RxNorm: 1 Lancets Miscellaneous QAM 019 2018 Inactive 100/box lisinopril 2.5 mg tablet RxNorm: 965871 1 Tablet(s) PO daily 019 2018 Inactive ranitidine 150 mg tablet RxNorm: 127850 1 Tablet(s) PO BID 2018 Inactive This refill negates all other refills of this medication albuterol sulfate 2.5 mg/3 mL (0.083 %) solution for nebulization RxNorm: 516329 1 Vial INH QID 019 2018 Inactive [...] this medication gabapentin 300 mg capsule RxNorm: 756997 1 Capsule(s) PO TID as needed 019 2018 Inactive atorvastatin 20 mg tablet RxNorm: 699254 1 Tablet(s) PO QHS 019 2018 Inactive This refill negates all other refills of this medication trazodone 50 mg tablet RxNorm: 453882 1 Tablet(s) PO QHS 019 2018 Inactive This refill negates all other refills of this medication Ventolin HFA 90 mcg/actuation aerosol inhaler RxNorm: 101040 2 Puff(s) INH QID 019 2018 Inactive Please do not fill early. Please do not auto refill. This refill negates all other refills of this medication Calcium 600-D3 Plus 600 mg calcium-800 unit-50 mg tablet RxNorm: 1 Tablet(s) PO daily take an additonal tablet for itching. 019 2018 Inactive This refill negates all other refills of this medication Singulair 10 mg tablet RxNorm: 674598 1 Tablet(s) PO daily 019 2018 Inactive This refill negates all other refills of this medication buspirone 7.5 mg tablet RxNorm: 700016 1 Tablet(s) PO BID 019 2018 Inactive This refill negates all other refills of this medication diclofenac sodium 75 mg tablet,delayed release RxNorm: 239463 1 Tablet(s) PO BID 019 2018 Inactive This refill negates all other refills of this medication hydrochlorothiazide 12.5 mg tablet RxNorm: 820260 1 Tablet(s) PO QAM 019 2018 Inactive metoprolol succinate ER 50 mg tablet,extended release 24 hr RxNorm: 484421 1 Tablet(s) PO daily 019 2018 Inactive This refill negates all other refills of this medication levothyroxine 50 mcg tablet RxNorm: 016764 1 Tablet(s) PO daily 019 2018 Inactive This refill negates all other refills of this medication cetirizine 10 mg tablet RxNorm: 9097989 1 Tablet(s) PO daily 019 2018 Inactive This refill negates all other refills of this medication. Please do not auto refill Flintstones Complete (iron) 18 mg iron chewable tablet RxNorm: 1 Tablet(s) PO daily 019 2018 Inactive This refill negates all other refills of this medication buspirone 7.5 mg tablet RxNorm: 273819 1 Tablet(s) PO BID 2018 Inactive cetirizine 10 mg tablet RxNorm: 0670907 1 Tablet(s) PO daily 2018 Inactive Guaiasorb DM 10 mg-100 mg/5 mL oral liquid RxNorm: 210665 10 Milliliter(s) PO As needed every 4 hr 2018 Inactive Vicks Vaporub 4.7 %-1.2 %-2.6 % topical ointment RxNorm: 8213237 1 Application TOP TID 2018 Inactive levmetamfetamine 50 mg nasal inhaler RxNorm: 1 Unit(s) NASAL Q3-4H 2017 Inactive sertraline 50 mg tablet RxNorm: 541071 1 Tablet(s) PO daily 2018 Inactive Please note dose trazodone 50 mg tablet RxNorm: 174106 1 Tablet(s) PO QHS 2018 Inactive sertraline 50 mg tablet RxNorm: 877205 1 Tablet(s) PO daily 2017 Inactive amoxicillin 500 mg tablet RxNorm: 423067 1 Tablet(s) PO Q12H 2017 Inactive albuterol sulfate 2.5 mg/3 mL (0.083 %) solution for nebulization RxNorm: 314355 1 Vial INH QID 2018 Inactive 60/box. Please do not fill early. Please do not auto refill. Prozac 10 mg capsule RxNorm: 865332 1 Capsule(s) PO daily 2017 Inactive buspirone 7.5 mg tablet RxNorm: 594127 1 Tablet(s) PO BID 2018 Inactive gabapentin 300 mg capsule RxNorm: 484516 1 Capsule(s) PO TID as needed 2018 Inactive hydrochlorothiazide 12.5 mg tablet RxNorm: 137365 1 Tablet(s) PO QAM 018 2018 Inactive ranitidine 150 mg tablet RxNorm: 298134 1 Tablet(s) PO BID 018 2018 Inactive Macrobid 100 mg capsule RxNorm: 043300 1 Capsule(s) PO Q12H 018 2017 Inactive Singulair 10 mg tablet RxNorm: 587334 1 Tablet(s) PO daily 018 2018 Inactive Ventolin HFA 90 mcg/actuation aerosol inhaler RxNorm: 1992613 2 Puff(s) INH QID 018 2018 Inactive Singulair 10 mg tablet RxNorm: 742943 1 Tablet(s) PO daily 018 2017 Inactive buspirone 7.5 mg tablet RxNorm: 952826 1 Tablet(s) PO BID 018 2017 Inactive Prozac 10 mg capsule RxNorm: 256603 1 Capsule(s) PO daily 018 2017 Inactive diclofenac sodium 75 mg tablet,delayed release RxNorm: 514737 1 Tablet(s) PO BID 018 2017 Inactive lisinopril 2.5 mg tablet RxNorm: 629163 1 Tablet(s) PO daily 018 2017 Inactive Neilmed Pediatric Sinus Rinse Refill packet RxNorm: 1 Unit Dose NASAL PRN 018 2021 Inactive metoprolol succinate ER 50 mg tablet,extended release 24 hr RxNorm: 362114 1 Tablet(s) PO daily 018 2017 Inactive levothyroxine 50 mcg tablet RxNorm: 250315 1 Tablet(s) PO daily 018 2017 Inactive TRUEplus Lancets 30 gauge RxNorm: 1 Lancets Miscellaneous QAM 018 2017 Inactive 100/box Ventolin HFA 90 mcg/actuation aerosol inhaler RxNorm: 589719 2 Puff(s) INH QID 018 2017 Inactive Aleve 220 mg capsule RxNorm: 8898768 1 Capsule(s) PO BID 018 2018 Inactive ranitidine 150 mg tablet RxNorm: 631320 1 Tablet(s) PO BID 018 2017 Inactive gabapentin 300 mg capsule RxNorm: 617997 1 Capsule(s) PO TID as needed 2017 Inactive atorvastatin 20 mg tablet RxNorm: 466421 1 Tablet(s) PO QHS 018 2017 Inactive True Metrix Glucose Test Strip RxNorm: 1 Test Strips Miscellaneous QAM 2017 Inactive 50/container Calcium 600-D3 Plus 600 mg calcium-800 unit-50 mg tablet RxNorm: 1 Tablet(s) PO daily take an additonal tablet for itching. 2017 Inactive hydrochlorothiazide 12.5 mg tablet RxNorm: 021067 1 Tablet(s) PO QAM 018 2017 Inactive Flintstones Complete (iron) 18 mg iron chewable tablet RxNorm: 1 Tablet(s) PO daily 2017 Inactive True Metrix Glucose Meter RxNorm: miscellaneous 019 2018 Inactive sertraline 50 mg tablet RxNorm: 555832 1 Tablet(s) PO daily 020 2019 Inactive loperamide 2 mg tablet RxNorm: 316890 oral 019 2018 Inactive d-mannose oral powder RxNorm: PO 018 2021 Inactive Symbicort 160 mcg-4.5 mcg/actuation HFA aerosol inhaler RxNorm: 8993477 2 Puff(s) INH BID 019 2018 Inactive [...] CPT-4: VACP Fall Risk Assessment SNOMED CT: 21519232 4 CPT-4: DFRA 01/13/2021 [place] F[place] Assessment CPT-4: DSWA 12/01 Urinalysis, dip stick CPT-4: 88151 09/24/2020 Patient Health Questionnaire CPT-4: DPHQ Electrocardiogram CPT-4: 97989 05/14/2020 Tobacco Assessment/Screening CPT-4: TCA Fall Risk Assessment SNOMED CT: 42087430 4 CPT-4: DFRA 01/01/2020 Functional Assessment CPT-4: DFA 01/01/2020 [place] Fany Assessment CPT-4: DSWA 11/04 Patient Health Questionnaire CPT-4: DPHQ [place] Fany Assessment CPT-4: DSWA 10/03 Hypertension CPT-4: HTN 10/17/2019 Fall Risk Assessment SNOMED CT: 41008030 4 CPT-4: DFRA 09/19/2019 Functional Assessment CPT-4: DFA 09/19/2019 Urinalysis, dip stick CPT-4: 39695 06/21/2019 Tobacco Assessment/Screening CPT-4: TCA Patient Health Questionnaire CPT-4: DPHQ AHA/REBECCA Classification Assessment CPT-4: DAHA 04/25/2019 Controlled Substance Report CPT-4: CTRSU 04/03 Urinalysis, dip stick CPT-4: 56415 03/28/2019 Urinalysis, dip stick CPT-4: 91764 03/28/2019 A0V-Angsqzpptdibbka CPT-4: 05991 Unknown U1U-Qjvwycpluqljuss CPT-4: 82416 Unknown J1S-Nvwzncpjlzsryln CPT-4: 56306 Unknown P9M-Qlfpuwwlacxdeik CPT-4: 74600 Unknown S5T-Qhcniptqyinnvju CPT-4: 01457 Unknown O8R-Hoqunwgljzxngjp CPT-4: 70506 Unknown C7U-Zpahkvceoyimlpu CPT-4: 46247 Unknown Y5K-Jylhvebuqqfsxpx CPT-4: 15629 Unknown B0L-Wrzkmpmfidlfeys CPT-4: 24382 Unknown Gynecology Referral SNOMED CT: 785866513 CPT-4: R14 Unknown Reason For Visit No Reason For Visit data Plan of Care Planned Activity Notes Codes Status Date Referral: Pending Gynecology Referral Information Referral Processed Referral: Pending Pulmonolog y Referral Information Referral Processed Referral: Pending Psychiatry Referral Information Referral Initiated Referral: Pending Respirator y Services Referral Information Referral Initiated Referral: Pending Ophthalmol ogy Referral Information Referral Initiated Referral: [facility] WPtel: [address] Lead Recreation Assistant placed a call out to the patient to notify her that it has been recommended that she be seen by 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 Patient agreed to be seen, does not have a provider of choice and no transportation issues. Lead Recreation Assistant faxed referral and clinical notes to [facility] in [place], [place] near the patient's home. Patient to [...] seen and prefers a provider in the [place] or [facility]. Lead Recreation Assistant placed a call out to everyone listed in the area and the only location that was able to accept the patient's insurance was [place] [address] [place] [address] and spoke with Maylin. Maylin asked that the patient's referral, face sheet and visit notes be faxed to . Lead Recreation Assistant faxed over requested documents. Patient appointment confirmation letter generated and mailed to her home address. Patient to call to schedule an appointment. Processed Referral: [facility] WPtel: [address] [place] [address] [id number] Patient notified that it has been advised that she be seen by Neurology. Patient agreed to be seen and prefers to be seen by a provider in the [place], [place] area. Patient denies any concerns with transportation, and prefers to schedule her own appointment. Lead Recreation Assistant placed a call out to [facility] and spoke with Neeraj P: who confirmed that their office is able to accept new patients and the patient's insurance. After confirming the providers fax number, ad writer faxed over the patient's referral, and [...]
--- OUTSIDE RECORDS SUMMARY | 2022-04-18 20:00 | XMS_ITS | CCD ---
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 Unknown Has never used illegal drugs 05/31/2018 DNR Order/ Advanced Directive Unknown Full Code 05/31/2018 Allergies, Adverse Reactions, Alerts Substance Reaction Codes Entered Date Inactivated Date Status OxyContin itch, RxNorm: 457176 01/13/2021 No Inactive Da te Active *No known food allergies Unknown 09/06/2018 No I nactive Date Active Methylprednisolone hives RxNorm: 6902 09/06/2018 No Inac tive Date Active Problems Condition Codes Effective Dates Condition St atus Adjustment disorder with mix ed anxiety and depressed mood ICD-10: F43.23 ICD-9: 309.28 09/05/2018 Active Adult BMI 50.0-59.9 kg/sq m ICD-10: Z68. 43 ICD-9: V85.43 05/30/2018 Active Hyperlipidemia, mixed ICD-10: E78.2 ICD-9: 272.2 12/03/2021 Active Hypertension ICD-10: I10 ICD-9: 401.9 12/03/2021 Active Type 2 diabetes mellitus wit h peripheral neuropathy ICD-10: E11.42 ICD-9: 250.60 11/28/2019 Active (Z00.00-V70.9) Encounter for general adult medical examination without abnormal findings ICD-10: Z00.00 ICD-9: V70.9 02/11/2022 Active Allergic rhinitis ICD-10: J30.9 ICD-9: 477.9 12/03/2021 Active Obstructive sleep apnea (chio lt) (pediatric) ICD-10: G47.33 ICD-9: 327.23 06/21/2019 Active Asthma ICD-10: J45.909 ICD-9: 493.90 08/08/2018 [...] ICD-10: E78. 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-steroidal anti-inflammatories (NSAID) [...] ICD-10: R51 ICD-9: 784.0 10/03/2018 Inactive Other nursing home (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 ICD-10: Z79.899 ICD-9: V58.69 04/25/2019 Inactive Type 2 diabetes mellitus wit hout complications ICD-10: E11.9 ICD-9: 250.00 10/03/2018 Inactive Wheezing ICD-10: R06.2 ICD-9: 786.07 08/08/2018 Inactive Abnormal urine finding ICD-10: R82.90 ICD-9: 791.9 09/24/2020 Resolved Abrasion of toe ICD-10: S90.416A ICD-9: 917.0 02/14/2020 Resolved [place] eye ICD-10: H10.029 ICD-9: 372.03 12/29/2019 Resolved [...] (4 mg/3 mL) subcutaneous pen injector RxNorm: 8970604 Take 1 Unit Dose Subcutaneous QWeek 022 2021 Inactive Ozempic 0.25 mg or 0.5 mg (2 mg/1.5 mL) subcutaneous pen injector RxNorm: 8669127 INJECT 0.5 MGS SUBCUTANEOUSLY EVERY WEEK 022 2021 Inactive omeprazole 20 mg capsule,delayed release RxNorm: 050582 Take 1 Capsule(s) Oral every evening 022 2021 Inactive levothyroxine 50 mcg tablet RxNorm: 665490 Take 1 Tablet(s) Oral every day 022 2021 Inactive atorvastatin 20 mg tablet RxNorm: 140916 Take 1 Tablet(s) Oral every night at bedtime 022 2021 Inactive This refill negates all other refills of this medication lisinopril 2.5 mg tablet RxNorm: 707977 Take 1 Tablet(s) Oral every day 022 2021 Inactive gabapentin 300 mg capsule RxNorm: 181527 Take 1 Capsule(s) Oral three times a day 04/072021 Inactive montelukast 10 mg tablet RxNorm: 632434 Take 1 Tablet(s) Oral every day 2021 Inactive cholecalciferol (vitamin D3) 50 mcg (2,000 unit) tablet RxNorm: 838814 Take 1 Tablet(s) Oral every day 2022 Inactive Myrbetriq 50 mg tablet,extended release RxNorm: 7826294 1 Tablet(s) Oral every day No Stop Date Active Ozempic 0.25 mg or 0.5 mg (2 mg/1.5 mL) subcutaneous pen injector RxNorm: 6186663 inject 0.5 milligrams subcutaneously every week 2021 Inactive Ozempic 0.25 mg or 0.5 mg (2 mg/1.5 mL) subcutaneous pen injector RxNorm: 1743897 Take 0.5 Capsule(s) Injection once a week 2021 Inactive omeprazole 20 mg capsule,delayed release RxNorm: 432222 Take 1 Capsule(s) Oral every evening 2020 Inactive Ozempic 0.25 mg or 0.5 mg (2 mg/1.5 mL) subcutaneous pen injector RxNorm: 8742813 Take 0.25 Milligram(s) Subcutaneous once a week 2021 Inactive Easy Touch Alcohol Prep Pads RxNorm: 075425 USE DIRECTED EACH MORNING 2021 Inactive Probiotic 10 billion cell capsule RxNorm: 2108918 Take 1 Capsule(s) Oral every day 2021 Inactive levothyroxine 50 mcg tablet RxNorm: 035792 Take 1 Tablet(s) Oral every day 2020 Inactive [employer] (famotidine) 20 mg tablet RxNorm: 108354 Take 1 Tablet(s) Oral every morning 2020 Inactive Heartburn Relief (famotidine) 10 mg tablet RxNorm: 025965 Take 1 Tablet(s) Oral QAM 2020 Inactive levothyroxine 50 mcg tablet RxNorm: 509550 Take 1 Tablet(s) Oral QD 021 2020 Inactive Singulair 10 mg tablet RxNorm: 688328 TAKE (1) TABLET BY MOUTH DAILY 021 2020 Inactive metformin 1,000 mg tablet RxNorm: 938800 1 Tablet(s) Oral two times a day 021 2021 Inactive lisinopril 2.5 mg tablet RxNorm: 754738 Take 1 Tablet(s) Oral every day 021 2020 Inactive hydrochlorothiazide 25 mg tablet RxNorm: 857134 Take 1 Tablet(s) Oral every day 021 2020 Inactive ondansetron 4 mg disintegrating tablet RxNorm: 596650 1 Tablet(s) Oral two times a day 2020 Inactive Sudafed 12 Hour 120 mg tablet,extended release RxNorm: 7605446 TAKE 1 TABLET BY MOUTH EVERY 12 HOURS NEEDED 2021 Inactive Heartburn Relief (famotidine) 10 mg tablet RxNorm: 364710 Take 1 Tablet(s) Oral every morning 021 2020 Inactive omeprazole 20 mg capsule,delayed release RxNorm: 397881 1 Capsule(s) Oral every evening 021 2020 Inactive sertraline 100 mg tablet RxNorm: 244099 2 Tablet(s) Oral every day 021 2020 Inactive levothyroxine 50 mcg tablet RxNorm: 657855 TAKE (1) TABLET BY MOUTH DAILY 021 2020 Inactive metformin 500 mg tablet RxNorm: 314153 1 Tablet(s) Oral two times a day take with 500mg to equal 1000mg 021 2020 Inactive gabapentin 300 mg capsule RxNorm: 548768 TAKE 1 CAPSULE BY MOUTH THREE TIMES A DAY 021 2020 Inactive lisinopril 2.5 mg tablet RxNorm: 967469 TAKE 1 TABLET BY MOUTH DAILY 021 2020 Inactive gabapentin 300 mg capsule RxNorm: 062166 TAKE 1 CAPSULE BY MOUTH THREE TIMES A DAY 021 2020 Inactive Singulair 10 mg tablet RxNorm: 470078 TAKE (1) TABLET BY MOUTH DAILY 021 2020 Inactive metformin 1,000 mg tablet RxNorm: 268135 1 Tablet(s) Oral two times a day 021 2020 Inactive atorvastatin 40 mg tablet RxNorm: 487109 1 Tablet(s) Oral every day 021 2020 Inactive omeprazole 20 mg capsule,delayed release RxNorm: 076534 1 Capsule(s) Oral every evening 021 2020 Inactive famotidine 10 mg tablet RxNorm: 152529 1 Tablet(s) Oral every morning 021 2020 Inactive Alcohol Prep Pads RxNorm: 817207 USE EACH MORNING 021 2020 Inactive omeprazole 20 mg capsule,delayed release RxNorm: 395230 1 Capsule(s) Oral two times a day 2021 Inactive omeprazole 20 mg capsule,delayed release RxNorm: 726445 TAKE 1 CAPSULE BY MOUTH EVERY DAY 2021 Inactive Macrobid 100 mg capsule RxNorm: 187782 1 Capsule(s) Oral every 12 hours with food 2020 Inactive omeprazole 20 mg capsule,delayed release RxNorm: 017183 1 Capsule(s) Oral two times a day 2021 Inactive metformin 1,000 mg tablet RxNorm: 836410 1 Tablet(s) Oral two times a day 2020 Inactive start on September 11, 2020 metformin 500 mg tablet RxNorm: 658242 1 Tablet(s) Oral two times a day take with 500mg to equal 1000mg 2019 Inactive gabapentin 300 mg capsule RxNorm: 768528 TAKE 1 CAPSULE BY MOUTH THREE TIMES DAILY 2020 Inactive cetirizine 10 mg tablet RxNorm: 3727971 TAKE (1) TABLET BY MOUTH DAILY 020 2020 Inactive metformin 500 mg tablet RxNorm: 548150 1 Tablet(s) Oral two times a day 020 2019 Inactive loperamide 2 mg tablet RxNorm: 703608 1 Tablet(s) Oral as needed take one tablet after each loose stool, maximum of 8 tablets in 24 hours 2021 Inactive Sudafed 12 Hour 120 mg tablet,extended release RxNorm: 0682586 TAKE 1 TABLET BY MOUTH EVERY 12 HOURS NEEDED 020 2019 Inactive hydrochlorothiazide 25 mg tablet RxNorm: 664790 TAKE (1) TABLET BY MOUTH EVERY DAY 020 2019 Inactive omeprazole 20 mg capsule,delayed release RxNorm: 722458 TAKE 1 CAPSULE BY MOUTH EVERY DAY 2020 Inactive metformin 500 mg tablet RxNorm: 442793 1 Tablet(s) Oral every day 020 2019 Inactive True Metrix Glucose Test Strip RxNorm: 1 Test Strips Miscellaneous two times a day as needed No Stop Date Active metformin 500 mg tablet RxNorm: 053817 1 Tablet(s) Oral every day 020 2019 Inactive diclofenac sodium 75 mg tablet,delayed release RxNorm: 721514 1 Tablet(s) PO BID 2021 Inactive This refill negates all other refills of this medication Sudafed 12 Hour 120 mg tablet,extended release RxNorm: 1840861 TAKE 1 TABLET BY MOUTH EVERY 12 HOURS NEEDED 020 2019 Inactive True Metrix Glucose Test Strip RxNorm: 1 Test Strips Miscellaneous every morning 020 2019 Inactive 100/container True Metrix Glucose Test Strip RxNorm: 1 Test Strips Miscellaneous QA 020 2019 Inactive 100/container loperamide 2 mg tablet RxNorm: 168049 1 Tablet(s) Oral as needed take one tablet after each loose stool, maximum of 8 tablets in 24 hours 020 2019 Inactive cetirizine 10 mg tablet RxNorm: 6993533 1 Tablet(s) PO daily 2019 Inactive loperamide 2 mg tablet RxNorm: 918888 1 Tablet(s) Oral as needed take one tablet after each loose stool, maximum of 8 tablets in 24 hours 2019 Inactive quetiapine 100 mg tablet RxNorm: 201668 1 Tablet(s) Oral every night at bedtime 2019 Inactive levothyroxine 50 mcg tablet RxNorm: 798816 1 Tablet(s) PO daily 2020 Inactive gabapentin 300 mg capsule RxNorm: 951946 1 Capsule(s) PO TID 2019 Inactive levothyroxine 50 mcg tablet RxNorm: 605754 1 Tablet(s) PO daily 2019 Inactive lisinopril 2.5 mg tablet RxNorm: 764242 1 Tablet(s) PO daily 2020 Inactive gabapentin 300 mg capsule RxNorm: 754211 1 Capsule(s) PO TID 2019 Inactive cetirizine 10 mg tablet RxNorm: 4960839 1 Tablet(s) PO daily 2019 Inactive Singulair 10 mg tablet RxNorm: 653055 1 Tablet(s) PO daily 2020 Inactive gentamicin 0.3 % eye drops RxNorm: 697838 1 Drop(s) ophthalmic (eye) four times a day 2019 Inactive gentamicin 0.3 % eye drops RxNorm: 981301 1 Drop(s) ophthalmic (eye) four times a day 2019 Inactive gentamicin 0.3 % eye drops RxNorm: 929547 1 Drop(s) ophthalmic (eye) four times a day 2019 Inactive hydrochlorothiazide 25 mg tablet RxNorm: 398006 1 Tablet(s) Oral every day 2019 Inactive Sudafed 12 Hour 120 mg tablet,extended release RxNorm: 3347187 TAKE (1) TABLET BY MOUTH EVERY 12 HOURS NEEDED 020 2019 Inactive loperamide 2 mg tablet RxNorm: 046917 1 Tablet(s) Oral as needed take one tablet after each loose stool, maximum of 8 tablets in 24 hours 020 2019 Inactive loperamide 2 mg tablet RxNorm: 807972 1 Tablet(s) Oral as needed take one tablet after each loose stool, maximum of 8 tablets in 24 hours 020 2019 Inactive atorvastatin 40 mg tablet RxNorm: 277120 1 Tablet(s) Oral every day 2020 Inactive quetiapine 100 mg tablet RxNorm: 767783 1 Tablet(s) Oral every night at bedtime 2019 Inactive sertraline 100 mg tablet RxNorm: 861265 1 Tablet(s) Oral 2019 Inactive omeprazole 20 mg capsule,delayed release RxNorm: 422549 1 Capsule(s) Oral every day 2019 Inactive amoxicillin 250 mg capsule RxNorm: 023201 1 Capsule(s) Oral three times a day 2019 Inactive multivitamin with iron-mineral tablet RxNorm: 1 Tablet(s) Oral every day 2021 Inactive cetirizine 10 mg tablet RxNorm: 2154031 1 Tablet(s) PO daily 2019 Inactive This refill negates all other refills of this medication. Please do not auto refill Singulair 10 mg tablet RxNorm: 923216 1 Tablet(s) PO daily 2019 Inactive This refill negates all other refills of this medication gabapentin 300 mg capsule RxNorm: 240210 1 Capsule(s) PO TID 2019 Inactive lisinopril 2.5 mg tablet RxNorm: 714633 1 Tablet(s) PO daily 020 2019 Inactive levothyroxine 50 mcg tablet RxNorm: 904104 1 Tablet(s) PO daily 2019 Inactive This refill negates all other refills of this medication hydrochlorothiazide 25 mg tablet RxNorm: 503097 1 Tablet(s) Oral every day 2019 Inactive fenugreek seed extract 500 mg capsule RxNorm: 1 Capsule(s) Oral three times a day 2021 Inactive Alcohol Prep Pads RxNorm: 613859 1 Patch TOP QAM 2020 Inactive loperamide 2 mg tablet RxNorm: 809152 1 Tablet(s) Oral as needed take one [...] 2019 Inactive hydrochlorothiazide 25 mg tablet RxNorm: 207349 1 Tablet(s) Oral every day 2019 Inactive Sudafed 12 Hour 120 mg tablet,extended release RxNorm: 3277297 1 Tablet(s) Oral every 12 hours as needed 2018 Inactive omeprazole 20 mg capsule,delayed release RxNorm: 491801 1 Capsule(s) Oral every day 019 2019 Inactive Sudafed 12 Hour 120 mg tablet,extended release RxNorm: 4816249 1 Tablet(s) Oral every 12 hours as needed 2018 Inactive pantoprazole 40 mg tablet,delayed release RxNorm: 853608 1 Tablet(s) Oral every day 019 2018 Inactive discontinue any other H2Blkr. and PPI albuterol sulfate 2.5 mg/3 mL (0.083 %) solution for nebulization RxNorm: 365984 1 Vial Inhalation every four hours as needed as needed for dyspnea 019 2019 Inactive 60/box. This refill negates all other refills of this medication. Please do not fill early. Please do not auto refill. Symbicort 160 mcg-4.5 mcg/actuation HFA aerosol inhaler RxNorm: 8292441 2 Puff(s) INH BID No Stop Date Active Alcohol Prep Pads RxNorm: 666645 1 Patch TOP QAM 019 2019 Inactive Ventolin HFA 90 mcg/actuation aerosol inhaler RxNorm: 557558 2 Puff(s) INH QID 019 2019 Inactive Please do not fill early. Please do not auto refill. This refill negates all other refills of this medication True Metrix Glucose Test Strip RxNorm: 1 Test Strips Miscellaneous QAM 019 2019 Inactive 100/container atorvastatin 40 mg tablet RxNorm: 840864 1 Tablet(s) Oral every day 019 2019 Inactive buspirone 7.5 mg tablet RxNorm: 047566 1 Tablet(s) PO BID 019 2020 Inactive This refill negates all other refills of this medication hydrochlorothiazide 12.5 mg tablet RxNorm: 224464 1 Tablet(s) PO QAM 019 2019 Inactive levmetamfetamine 50 mg nasal inhaler RxNorm: 1 Unit(s) NASAL Q3-4H Do not use more than every 3 hours or 8 times/24hours 019 2021 Inactive Please do not auto refill. This refill negates all other refills of this medication Ventolin HFA 90 mcg/actuation aerosol inhaler RxNorm: 217379 2 Puff(s) INH QID 019 2018 Inactive Please do not fill early. Please do not auto refill. This refill negates all other refills of this medication Singulair 10 mg tablet RxNorm: 714055 1 Tablet(s) PO daily 019 2019 Inactive This refill negates all other refills of this medication cetirizine 10 mg tablet RxNorm: 6914829 1 Tablet(s) PO daily 019 2019 Inactive This refill negates all other refills of this medication. Please do not auto refill levothyroxine 50 mcg tablet RxNorm: 674800 1 Tablet(s) PO daily 019 2019 Inactive This refill negates all other refills of this medication diclofenac sodium 75 mg tablet,delayed release RxNorm: 870842 1 Tablet(s) PO BID 019 2019 Inactive This refill negates all other refills of this medication ranitidine 150 mg tablet RxNorm: 276453 1 Tablet(s) PO BID 019 2018 Inactive This refill negates all other refills of this medication Calcium 600-D3 Plus (mag-zinc) 600 mg calcium-800 unit-50 mg tablet RxNorm: 1 Tablet(s) PO daily take an additonal tablet for itching. 019 2018 Inactive This refill negates all other refills of this medication albuterol sulfate 2.5 mg/3 mL (0.083 %) solution for nebulization RxNorm: 741803 1 Vial INH QID 019 2018 Inactive 60/box. This refill negates all other refills of this medication. Please do not fill early. Please do not auto refill. lisinopril 2.5 mg tablet RxNorm: 877269 1 Tablet(s) PO daily 019 2019 Inactive gabapentin 300 mg capsule RxNorm: 815606 1 Capsule(s) PO TID 019 2019 Inactive atorvastatin 20 mg tablet RxNorm: 606390 1 Tablet(s) PO QHS 019 2018 Inactive This refill negates all other refills of this medication TRUEplus Lancets 30 gauge RxNorm: 1 Lancets Miscellaneous QAM 019 2018 Inactive 100/box gabapentin 300 mg capsule RxNorm: 704237 1 Capsule(s) PO TID 2018 Inactive Flintstones Complete (iron) 18 mg iron chewable tablet RxNorm: 1 Tablet(s) PO daily 2021 Inactive This refill negates all other refills of this medication gabapentin 300 mg capsule RxNorm: 177371 1 Capsule(s) PO TID as needed 2018 Inactive True Metrix Glucose Test Strip RxNorm: 1 Test Strips Miscellaneous QA 2018 Inactive 100/container Alcohol Prep Pads RxNorm: 708932 1 Patch TOP QA 2018 Inactive TRUEplus Lancets 30 gauge RxNorm: 1 Lancets Miscellaneous QAM 019 2018 Inactive 100/box lisinopril 2.5 mg tablet RxNorm: 289883 1 Tablet(s) PO daily 2018 Inactive ranitidine 150 mg tablet RxNorm: 964528 1 Tablet(s) PO BID 2018 Inactive This refill negates all other refills of this medication albuterol sulfate 2.5 mg/3 mL (0.083 %) solution for nebulization RxNorm: 059503 1 Vial INH QID 2018 Inactive 60/box. [...] this medication gabapentin 300 mg capsule RxNorm: 162116 1 Capsule(s) PO TID as needed 019 2018 Inactive atorvastatin 20 mg tablet RxNorm: 740777 1 Tablet(s) PO QHS 019 2018 Inactive This refill negates all other refills of this medication trazodone 50 mg tablet RxNorm: 314043 1 Tablet(s) PO QHS 019 2018 Inactive This refill negates all other refills of this medication Ventolin HFA 90 mcg/actuation aerosol inhaler RxNorm: 505365 2 Puff(s) INH QID 019 2018 Inactive Please do not fill early. Please do not auto refill. This refill negates all other refills of this medication Calcium 600-D3 Plus 600 mg calcium-800 unit-50 mg tablet RxNorm: 1 Tablet(s) PO daily take an additonal tablet for itching. 019 2018 Inactive This refill negates all other refills of this medication Singulair 10 mg tablet RxNorm: 520860 1 Tablet(s) PO daily 019 2018 Inactive This refill negates all other refills of this medication buspirone 7.5 mg tablet RxNorm: 320762 1 Tablet(s) PO BID 019 2018 Inactive This refill negates all other refills of this medication diclofenac sodium 75 mg tablet,delayed release RxNorm: 789586 1 Tablet(s) PO BID 019 2018 Inactive This refill negates all other refills of this medication hydrochlorothiazide 12.5 mg tablet RxNorm: 487825 1 Tablet(s) PO QAM 019 2018 Inactive metoprolol succinate ER 50 mg tablet,extended release 24 hr RxNorm: 932686 1 Tablet(s) PO daily 019 2018 Inactive This refill negates all other refills of this medication levothyroxine 50 mcg tablet RxNorm: 707922 1 Tablet(s) PO daily 019 2018 Inactive This refill negates all other refills of this medication cetirizine 10 mg tablet RxNorm: 4406390 1 Tablet(s) PO daily 019 2018 Inactive This refill negates all other refills of this medication. Please do not auto refill Flintstones Complete (iron) 18 mg iron chewable tablet RxNorm: 1 Tablet(s) PO daily 019 2018 Inactive This refill negates all other refills of this medication buspirone 7.5 mg tablet RxNorm: 783638 1 Tablet(s) PO BID 019 2018 Inactive cetirizine 10 mg tablet RxNorm: 7179964 1 Tablet(s) PO daily 018 2018 Inactive Guaiasorb DM 10 mg-100 mg/5 mL oral liquid RxNorm: 991263 10 Milliliter(s) PO As needed every 4 hr 2018 Inactive Vicks Vaporub 4.7 %-1.2 %-2.6 % topical ointment RxNorm: 8502623 1 Application TOP TID 018 2018 Inactive levmetamfetamine 50 mg nasal inhaler RxNorm: 1 Unit(s) NASAL Q3-4H 2017 Inactive sertraline 50 mg tablet RxNorm: 956849 1 Tablet(s) PO daily 018 2018 Inactive Please note dose trazodone 50 mg tablet RxNorm: 385846 1 Tablet(s) PO QHS 018 2018 Inactive sertraline 50 mg tablet RxNorm: 450573 1 Tablet(s) PO daily 018 2017 Inactive amoxicillin 500 mg tablet RxNorm: 637014 1 Tablet(s) PO Q12H 2017 Inactive albuterol sulfate 2.5 mg/3 mL (0.083 %) solution for nebulization RxNorm: 202755 1 Vial INH QID 018 2018 Inactive 60/box. Please do not fill early. Please do not auto refill. Prozac 10 mg capsule RxNorm: 190346 1 Capsule(s) PO daily 018 2017 Inactive buspirone 7.5 mg tablet RxNorm: 710207 1 Tablet(s) PO BID 018 2018 Inactive gabapentin 300 mg capsule RxNorm: 099185 1 Capsule(s) PO TID as needed 018 2018 Inactive hydrochlorothiazide 12.5 mg tablet RxNorm: 083946 1 Tablet(s) PO QAM 018 2018 Inactive ranitidine 150 mg tablet RxNorm: 125526 1 Tablet(s) PO BID 018 2018 Inactive Macrobid 100 mg capsule RxNorm: 804606 1 Capsule(s) PO Q12H 018 2017 Inactive Singulair 10 mg tablet RxNorm: 946180 1 Tablet(s) PO daily 018 2018 Inactive Ventolin HFA 90 mcg/actuation aerosol inhaler RxNorm: 0911646 2 Puff(s) INH QID 018 2018 Inactive Singulair 10 mg tablet RxNorm: 759282 1 Tablet(s) PO daily 018 2017 Inactive buspirone 7.5 mg tablet RxNorm: 526809 1 Tablet(s) PO BID 018 2017 Inactive Prozac 10 mg capsule RxNorm: 864071 1 Capsule(s) PO daily 018 2017 Inactive diclofenac sodium 75 mg tablet,delayed release RxNorm: 678435 1 Tablet(s) PO BID 018 2017 Inactive lisinopril 2.5 mg tablet RxNorm: 740376 1 Tablet(s) PO daily 018 2017 Inactive Neilmed Pediatric Sinus Rinse Refill packet RxNorm: 1 Unit Dose NASAL PRN 018 2021 Inactive metoprolol succinate ER 50 mg tablet,extended release 24 hr RxNorm: 661196 1 Tablet(s) PO daily 018 2017 Inactive levothyroxine 50 mcg tablet RxNorm: 013406 1 Tablet(s) PO daily 018 2017 Inactive TRUEplus Lancets 30 gauge RxNorm: 1 Lancets Miscellaneous QAM 018 2017 Inactive 100/box Ventolin HFA 90 mcg/actuation aerosol inhaler RxNorm: 673459 2 Puff(s) INH QID 018 2017 Inactive Aleve 220 mg capsule RxNorm: 7351096 1 Capsule(s) PO BID 018 2018 Inactive ranitidine 150 mg tablet RxNorm: 493234 1 Tablet(s) PO BID 2017 Inactive gabapentin 300 mg capsule RxNorm: 617137 1 Capsule(s) PO TID as needed 018 2017 Inactive atorvastatin 20 mg tablet RxNorm: 840363 1 Tablet(s) PO QHS 2017 Inactive True Metrix Glucose Test Strip RxNorm: 1 Test Strips Miscellaneous [facility] 018 2017 Inactive 50/container Calcium 600-D3 Plus 600 mg calcium-800 unit-50 mg tablet RxNorm: 1 Tablet(s) PO daily take an additonal tablet for itching. 018 2017 Inactive hydrochlorothiazide 12.5 mg tablet RxNorm: 571440 1 Tablet(s) PO QAM 018 2017 Inactive Flintstones Complete (iron) 18 mg iron chewable tablet RxNorm: 1 Tablet(s) PO daily 018 2017 Inactive True Metrix Glucose Meter RxNorm: miscellaneous 019 2018 Inactive sertraline 50 mg tablet RxNorm: 625232 1 Tablet(s) PO daily 020 2019 Inactive loperamide 2 mg tablet RxNorm: 870654 oral 019 2018 Inactive d-mannose oral powder RxNorm: PO 018 2021 Inactive Symbicort 160 mcg-4.5 mcg/actuation HFA aerosol inhaler RxNorm: 5828652 2 Puff(s) INH BID 019 2018 Inactive Medication Administered No Medication Administered data Procedures Procedure Codes Date [place] F[place] Assessment CPT-4: DSWA 04/02 Patient Health [...] for depression- NO PLAN NEEDED CPT-4: DPHQUnknown 04/19/2022 [place] F[facility] Assessment CPT-4: DSWAUnknown 04/19/2022 Annual Wellness Visit (Subsequent Visit) CPT-4: G0439 02/11/2022 Patient Health Questionnaire CPT-4: DPHQ 01/2022 Frailty Screening CPT-4: SFD 05/20/2021 Hypertension CPT-4: HTN 04/01/2021 Tobacco Assessment/Screening CPT-4: TCA 08/2021 Patient Health Questionnaire CPT-4: DPHQ 08/2021 Mini Mental State Exam CPT-4: DMMA Annual Wellness Visit (Subsequent Visit) CPT-4: G0439 01/13/2021 Advanced Care Planning CPT-4: VACP Fall Risk Assessment SNOMED CT: 60669304 4 CPT-4: DFRA 01/13/2021 [place] Fany Assessment CPT-4: DSWA 12/01 Urinalysis, dip stick CPT-4: 29197 09/24/2020 Patient Health Questionnaire CPT-4: DPHQ Electrocardiogram CPT-4: 90692 05/14/2020 Tobacco Assessment/Screening CPT-4: TCA Fall Risk Assessment SNOMED CT: 69985674 4 CPT-4: DFRA 01/01/2020 Functional Assessment CPT-4: DFA 01/01/2020 [place] F[place] Assessment CPT-4: DSWA 11/04 Patient Health Questionnaire CPT-4: DPHQ [place] Fany Assessment CPT-4: DSWA 10/03 Hypertension CPT-4: HTN 10/17/2019 Fall Risk Assessment SNOMED CT: 65038494 4 CPT-4: DFRA 09/19/2019 Functional Assessment CPT-4: DFA 09/19/2019 Urinalysis, dip stick CPT-4: 93762 06/21/2019 Tobacco Assessment/Screening CPT-4: TCA Patient Health Questionnaire CPT-4: DPHQ AHA/REBECCA Classification Assessment CPT-4: DAHA 04/25/2019 Controlled Substance Report CPT-4: CTRSU 04/03 Urinalysis, dip stick CPT-4: 45518 03/28/2019 Urinalysis, dip stick CPT-4: 95768 03/28/2019 I8H-Vfmoxyijonhvffs CPT-4: 46427 Unknown S5L-Fkcmhezjbkjxszo CPT-4: 50838 Unknown J5N-Wggwsugmesosciz CPT-4: 75334 Unknown Q2I-Jlkewkjqaodkgmw CPT-4: 51968 Unknown Q3D-Tgmppecdpsbtqkx CPT-4: 88149 Unknown G8E-Osfuoamrcbolevp CPT-4: 98296 Unknown E4K-Uuhynbhzshqzacl CPT-4: 49029 Unknown S2S-Akawqzhxuiulksu CPT-4: 97070 Unknown O6F-Vlnlscqslhmsswd CPT-4: 40443 Unknown Gynecology Referral SNOMED CT: [id number] CPT-4: R14 Unknown Vital Signs Date Vital 04/19/2022 Blood Pressure 1: 102/82 Code: 8480-6 BMI: 55.1 Code: 61296-1 Heart Rate 1: 85 bpm Height: 4'11 Code: 8302-2 Respiratory Rate: 18 bpm SpO2: 97% Temperature: 36.5 (C) / 97.7 (F) Weight: 272 lbs 12 oz Code: 88469-9 Reason For Visit Reason For Visit Effective Dates Notes weight gain/obesity 04/19/2022 diabetes mellitus 04/19/2022 Encounters Encounter Performer Location Location Address Codes [place] ([id number]) HOME VISIT EST PATIENT Diagnosis: Hypertension[ICD1 0: I10] Diagnosis: Type 2 diabetes mellitus with peripheral neuropathy[ICD10: E11.42] Diagnosis: Adult BMI 50.0-59.9 kg/sq m[ICD10: Z68.43] Diagnosis: Hyperlipidemia, mixed[ICD10: E78.2] Chivo Bishop [place] [facility] [address] [place] [address] CPT-4: 16664 04/19/2022 Plan of Care Planned Activity Notes Codes Status Date Visit Plan: I10 Essential (prima ry) hypertension, BP within goal continue lisinopril, HCTZ 07/02/20 Echo: EF 60%, mild conc. LVH 05/14/20 EKG: NSR 05/14/20 Noct. Pulse Ox.: 7 min. < 89% SpO2 continue with [facility] Josh Simon MD E11.42 Type 2 diabetes mellitus with peripheral neuropathy, Z68.43 Adult BMI 50.0-59.9 kg/sq m glucose controlled, however body weight remains an issue glucose monitor averaging 100s-130s - bid increase Ozempic to maximum: 1mg per week, continue gabapentin 11/02/21 HgbA1C 5.6, GFR >100 continue with Kerrie Pandya OD at [facility] (06/30/21) encouraged to increase daily step count [...] to assist with weight loss continue with [facility] in [place] Below historical items not addressed this visit: Z00.00-V70.9 (Z00.00-V70.9) Encounter for general adult medical examination without abnormal findings 02/11/22 AWV complete G47.33 Obstructive sleep apnea (adult), J45.909 Asthma breathing stable CPAP use encouraged but pt seems uncertain of benefit continue utilization of Symbicort, albuterol via neb. or MDI q 4 hrs. prn dyspnea, continue with [employer] Jose BOWMAN E03.9 Hypothyroidism continue levothyroxine 11/02/21 [...] 5 times per day continue with Urologist 04/19/2022 Patient Education: Diabetes Complete d 04/19/2022 Patient Education: Patient Medication Summary Completed 04/19/2022 Patient Education: Weight Gain Completed 04/19/2022 Appointment: Chivo Bishop WPtel: [id number] [place], [place] [id number] E410 02/11/2022 Appointment: Mikey Nair WPtel: [address] [facility] 202b [id number] E410 12/03/2021 Appointment: Chivo Bishop WPtel: [id number] [place] [address] E410 11/02/2021 Appointment: Chivo Bishop WPtel: [address] [place] [address] E410 10/07/2021 Appointment: Chivo Bishop WPtel: [address] [place] [address] ETV 09/10/2021 Appointment: Chivo Bishop WPtel: [address] [place] [address] ETV 08/13/2021 Appointment: Chivo Bishop WPtel: [address] [place] [address] ETV 07/06/2021 Appointment: Chivo Bishop WPtel: [address] [place] [address] PHTV 06/10/2021 Appointment: Anna Culver WPtel: [address] [place] [address] ETV 06/02/2021 Appointment: Chivo Bishop WPtel: [address] [place] [address] ETV 05/20/2021 Appointment: Anna Culver WPtel: [address] [place] [address] ETV 04/28/2021 Appointment: Chivo Bishop WPtel: [address] [place] [address] ETV 04/15/2021 Appointment: Anna Culver WPtel: [address] [place] [address] E410 04/01/2021 Appointment: Anna Culver WPtel: [address] [place] [address] ETV 03/24/2021 Appointment: Anna Culver WPtel: [address] [place] [address] ETV 03/13/2021 Appointment: Anna Culver WPtel: [id number] [place] [address] E410 02/11/2021 Appointment: Chivo Bishop WPtel: [address] [place] [address] E410 01/29/2021 Appointment: Anna Culver WPtel: [address] [place] [address] ETV 01/13/2021 Appointment: Anna Culver WPtel: [address] [place] [address] E410 12/17/2020 Appointment: Chivo Bishop WPtel: [address] [place] [address] ETV 11/28/2020 Appointment: Anna Culver WPtel: [address] [place] [address] ETV 11/24/2020 Appointment: Anna Culver WPtel: [address] [place] [address] E410 10/29/2020 Appointment: Anna Culver WPtel: [address] [place] [address] [place] E410 09/24/2020 Appointment: Anna Culver WPtel: [address] [place] [address] [place] ETV 08/26/2020 Appointment: Anna Culver WPtel: [address] [place] [address] ETV 08/19/2020 Appointment: Anna Culver WPtel: [address] [place] [address] ETV 07/22/2020 Appointment: Anna Culvertel: [id number] [place] [address] [place] ETV 07/08/2020 Appointment: Gianna Birmingham: [address] [facility] 100 [id number] [place] ECHO 07/02/2020 Appointment: Anna Culver WPtel: [address] [place] [address] E452 06/11/2020 Appointment: Anna Culver WPtel: [address] [place] [address] E452 05/14/2020 Appointment: Anna Culver WPtel: [address] [place] [address] E452 04/17/2020 Appointment: Anna Culver WPtel: [address] [place] [address] E452 03/21/2020 Appointment: Anna Culver WPtel: [address] [place] [address] E452 02/14/2020 Appointment: Anna Culver WPtel: [address] [place] [address] E452 01/24/2020 Appointment: Anna Culver WPtel: [address] [place] [address] E452 01/01/2020 Appointment: Anna Culver WPtel: [address] [place] [address] [place] E452 11/28/2019 Appointment: Anna Culver WPtel: [address] [place] [address] [place] E452 10/17/2019 Appointment: Anna Culver WPtel: [address] [place] [address] E452 09/19/2019 Appointment: Sudha Hernadez WPtel: [address] [place] [address] [id number] E452 07/04/2019 Appointment: Sudha Hernadez WPtel: [address] [facility] [id number] E452 06/21/2019 Appointment: Charlene Oropeza WPtel: [address] [place] [address] [id number] E452 05/24/2019 Appointment: Mallory Delgado E452 04/27/2019 Appointment: Charlene Oropeza WPtel: [address] [place] [address] [id number] E452 04/25/2019 Appointment: Rasta Palafox WPtel: [address] [place] [address] [id number] E452 03/28/2019 Appointment: Rasta Palafox WPtel: [address] [place] [address] [id number] E452 02/14/2019 Appointment: Rasta Palafox WPtel: [address] [place] [address] [id number] E452 01/31/2019 Appointment: Rasta Palafox WPtel: [address] [place] [address] [id number] E420 12/27/2018 Referral: Pending Gynecology Referral Information Referral Processed Referral: Pending Pulmonology Referral Information Referral Processed Referral: Pending Psychiatry Referral Information Referral Initiated Referral: Pending Respiratory Services Referral Information Referral Initiated Referral: Pending Ophthalmology Referral Information Referral Initiated Referral: [facility] WPtel: [address] [place] [address] Sheet [employer]worker placed a call out to the patient to notify her that it has been recommended that she be seen by 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 Patient agreed to be seen, does not have a provider of choice and no transportation issues. Sheet [employer]worker faxed referral and clinical notes to [facility] in [place], [place] near the patient's home. Patient to [...] seen and prefers a provider in the [place] or [place] area. Sheet Ironworker placed a call out to everyone listed in the area and the only location that was able to accept the patient's insurance was [place] [address] [place] [address] and spoke with Maylin. Maylin asked that the patient's referral, face sheet and visit notes be faxed to . [employer]worker faxed over requested documents. Patient appointment confirmation letter generated and mailed to her home address. Patient to call to schedule an appointment. Processed Referral: [facility] WPtel: [address] [place] [address] Patient notified that it has been advised that she be seen by Neurology. Patient agreed to be seen and prefers to be seen by a provider in the [place], [place] area. Patient denies any concerns with transportation, and prefers to schedule her own appointment. Sheet Ironworker placed a call out to [facility] and spoke with [...] Information Referral Initiated Instructions Comment Date . I10 Essential (primary) hy pertension, BP within goal; continue lisinopril, HCTZ; 07/02/20 Echo: EF 60%, mild conc. LVH; 05/14/20 EKG: NSR; 05/14/20 Noct. Pulse Ox.: 7 min. < 89% SpO2; continue with [employer] [employer] Josh Simon MD; E11.42 Type 2 diabetes mellitus with peripheral neuropathy, Z68.43 Adult BMI 50.0-59.9 kg/sq m glucose controlled, however body weight remains an issue; glucose monitor averaging 100s-130s - bid; increase Ozempic to maximum: 1mg per week, continue gabapentin; 11/02/21 HgbA1C 5.6, GFR >100; continue with Kerrie Pandya OD at [facility] (06/30/21); encouraged to increase daily step count [...] to assist with weight loss; continue with [facility] in [place]; ---- Below historical items not addressed this visit: Z00.00-V70.9 (Z00.00-V70.9) Encounter for general adult medical examination without abnormal findings 02/11/22 AWV complete G47.33 Obstructive sleep apnea (adult), J45.909 Asthma breathing stable CPAP use encouraged but pt seems uncertain of benefit; continue utilization of Symbicort, albuterol via neb. or MDI q 4 hrs. prn dyspnea, continue with [employer] Jose BOWMAN; E03.9 Hypothyroidism continue levothyroxine; 11/02/21 [...]
--- OUTSIDE RECORDS SUMMARY | 2022-04-20 20:00 | XMS_ITS | CCD ---
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 Unknown Has never used illegal drugs 05/31/2018 DNR Order/ Advanced Directive Unknown Full Code 05/31/2018 Allergies, Adverse Reactions, Alerts Substance Reaction Codes Entered Date Inactivated Date Status OxyContin itch, RxNorm: 436457 01/13/2021 No Inactive Da te Active *No known food allergies Unknown 09/06/2018 No I nactive Date Active Methylprednisolone hives RxNorm: 6902 09/06/2018 No Inac tive Date Active Problems Condition Codes Effective Dates Condition St atus Abscess ICD-10: L02.91 ICD-9: 682.9 04/21/2022 Active Adjustment disorder with mix ed anxiety [...] ICD-10: E78. 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 ICD-10: Z79.899 ICD-9: V58.69 04/25/2019 Inactive Type 2 diabetes mellitus wit hout complications ICD-10: E11.9 ICD-9: 250.00 10/03/2018 Inactive Wheezing ICD-10: R06.2 ICD-9: 786.07 08/08/2018 Inactive Abnormal urine finding ICD-10: R82.90 ICD-9: 791.9 09/24/2020 Resolved Abrasion of toe ICD-10: S90.416A ICD-9: 917.0 02/14/2020 Resolved [place] eye ICD-10: H10.029 ICD-9: 372.03 12/29/2019 Resolved [...] Instructions Cleocin T 1 % lotion RxNorm: 702147 Take 2 Gram(s) Topical every day 022 2021 Inactive Ozempic 1 mg/dose (4 mg/3 mL) subcutaneous pen injector RxNorm: 8277980 Take 1 Unit Dose Subcutaneous QWeek 022 2021 Inactive Ozempic 0.25 mg or 0.5 mg (2 mg/1.5 mL) subcutaneous pen injector RxNorm: 1393464 INJECT 0.5 MGS SUBCUTANEOUSLY EVERY WEEK 022 2021 Inactive omeprazole 20 mg capsule,delayed release RxNorm: 744403 Take 1 Capsule(s) Oral every evening 022 2021 Inactive levothyroxine 50 mcg tablet RxNorm: 446703 Take 1 Tablet(s) Oral every day 022 2021 Inactive atorvastatin 20 mg tablet RxNorm: 307505 Take 1 Tablet(s) Oral every night at bedtime 022 2021 Inactive This refill negates all other refills of this medication lisinopril 2.5 mg tablet RxNorm: 410013 Take 1 Tablet(s) Oral every day 022 2021 Inactive gabapentin 300 mg capsule RxNorm: 155923 Take 1 Capsule(s) Oral three times a day 022 2021 Inactive montelukast 10 mg tablet RxNorm: 944183 Take 1 Tablet(s) Oral every day 022 2021 Inactive cholecalciferol (vitamin D3) 50 mcg (2,000 unit) tablet RxNorm: 991619 Take 1 Tablet(s) Oral every day 2022 Inactive Myrbetriq 50 mg tablet,extended release RxNorm: 2690788 1 Tablet(s) Oral every day No Stop Date Active Ozempic 0.25 mg or 0.5 mg (2 mg/1.5 mL) subcutaneous pen injector RxNorm: 2392726 inject 0.5 milligrams subcutaneously every week 2021 Inactive Ozempic 0.25 mg or 0.5 mg (2 mg/1.5 mL) subcutaneous pen injector RxNorm: 3534606 Take 0.5 Capsule(s) Injection once a week 2021 Inactive omeprazole 20 mg capsule,delayed release RxNorm: 083437 Take 1 Capsule(s) Oral every evening 2020 Inactive Ozempic 0.25 mg or 0.5 mg (2 mg/1.5 mL) subcutaneous pen injector RxNorm: 3863835 Take 0.25 Milligram(s) Subcutaneous once a week 2021 Inactive Easy Touch Alcohol Prep Pads RxNorm: 804137 USE DIRECTED EACH MORNING 021 2021 Inactive Probiotic 10 billion cell capsule RxNorm: 4864274 Take 1 Capsule(s) Oral every day 021 2021 Inactive levothyroxine 50 mcg tablet RxNorm: 401571 Take 1 Tablet(s) Oral every day 2020 Inactive Acid Salon Assistant (famotidine) 20 mg tablet RxNorm: 135381 Take 1 Tablet(s) Oral every morning 021 2020 Inactive Heartburn Relief (famotidine) 10 mg tablet RxNorm: 344048 Take 1 Tablet(s) Oral QAM 021 2020 Inactive levothyroxine 50 mcg tablet RxNorm: 474193 Take 1 Tablet(s) Oral QD 021 2020 Inactive Singulair 10 mg tablet RxNorm: 071505 TAKE (1) TABLET BY MOUTH DAILY 2020 Inactive metformin 1,000 mg tablet RxNorm: 188541 1 Tablet(s) Oral two times a day 021 2021 Inactive lisinopril 2.5 mg tablet RxNorm: 470002 Take 1 Tablet(s) Oral every day 021 2020 Inactive hydrochlorothiazide 25 mg tablet RxNorm: 187613 Take 1 Tablet(s) Oral every day 021 2020 Inactive ondansetron 4 mg disintegrating tablet RxNorm: 140347 1 Tablet(s) Oral two times a day 2020 Inactive Sudafed 12 Hour 120 mg tablet,extended release RxNorm: 7361830 TAKE 1 TABLET BY MOUTH EVERY 12 HOURS NEEDED 2021 Inactive Heartburn Relief (famotidine) 10 mg tablet RxNorm: 464037 Take 1 Tablet(s) Oral every morning 021 2020 Inactive omeprazole 20 mg capsule,delayed release RxNorm: 186802 1 Capsule(s) Oral every evening 021 2020 Inactive sertraline 100 mg tablet RxNorm: 142075 2 Tablet(s) Oral every day 021 2020 Inactive levothyroxine 50 mcg tablet RxNorm: 460464 TAKE (1) TABLET BY MOUTH DAILY 021 2020 Inactive metformin 500 mg tablet RxNorm: 883626 1 Tablet(s) Oral two times a day take with 500mg to equal 1000mg 021 2020 Inactive gabapentin 300 mg capsule RxNorm: 226991 TAKE 1 CAPSULE BY MOUTH THREE TIMES A DAY 021 2020 Inactive lisinopril 2.5 mg tablet RxNorm: 553463 TAKE 1 TABLET BY MOUTH DAILY 021 2020 Inactive gabapentin 300 mg capsule RxNorm: 190776 TAKE 1 CAPSULE BY MOUTH THREE TIMES A DAY 021 2020 Inactive Singulair 10 mg tablet RxNorm: 972910 TAKE (1) TABLET BY MOUTH DAILY 2020 Inactive metformin 1,000 mg tablet RxNorm: 371427 1 Tablet(s) Oral two times a day 021 2020 Inactive atorvastatin 40 mg tablet RxNorm: 969462 1 Tablet(s) Oral every day 2020 Inactive omeprazole 20 mg capsule,delayed release RxNorm: 706076 1 Capsule(s) Oral every evening 2020 Inactive famotidine 10 mg tablet RxNorm: 599002 1 Tablet(s) Oral every morning 021 2020 Inactive Alcohol Prep Pads RxNorm: 025304 USE EACH MORNING 021 2020 Inactive omeprazole 20 mg capsule,delayed release RxNorm: 696709 1 Capsule(s) Oral two times a day 2021 Inactive omeprazole 20 mg capsule,delayed release RxNorm: 393990 TAKE 1 CAPSULE BY MOUTH EVERY DAY 2021 Inactive Macrobid 100 mg capsule RxNorm: 988672 1 Capsule(s) Oral every 12 hours with food 2020 Inactive omeprazole 20 mg capsule,delayed release RxNorm: 386321 1 Capsule(s) Oral two times a day 2021 Inactive metformin 1,000 mg tablet RxNorm: 598581 1 Tablet(s) Oral two times a day 2020 Inactive start on September 11, 2020 metformin 500 mg tablet RxNorm: 688025 1 Tablet(s) Oral two times a day take with 500mg to equal 1000mg 2019 Inactive gabapentin 300 mg capsule RxNorm: 308418 TAKE 1 CAPSULE BY MOUTH THREE TIMES DAILY 2020 Inactive cetirizine 10 mg tablet RxNorm: 6759689 TAKE (1) TABLET BY MOUTH DAILY 2020 Inactive metformin 500 mg tablet RxNorm: 451274 1 Tablet(s) Oral two times a day 2019 Inactive loperamide 2 mg tablet RxNorm: 778521 1 Tablet(s) Oral as needed take one tablet after each loose stool, maximum of 8 tablets in 24 hours 2021 Inactive Sudafed 12 Hour 120 mg tablet,extended release RxNorm: 0875315 TAKE 1 TABLET BY MOUTH EVERY 12 HOURS NEEDED 2019 Inactive hydrochlorothiazide 25 mg tablet RxNorm: 999118 TAKE (1) TABLET BY MOUTH EVERY DAY 2019 Inactive omeprazole 20 mg capsule,delayed release RxNorm: 811664 TAKE 1 CAPSULE BY MOUTH EVERY DAY 2020 Inactive metformin 500 mg tablet RxNorm: 085782 1 Tablet(s) Oral every day 2019 Inactive True Metrix Glucose Test Strip RxNorm: 1 Test Strips Miscellaneous two times a day as needed No Stop Date Active metformin 500 mg tablet RxNorm: 284647 1 Tablet(s) Oral every day 2019 Inactive diclofenac sodium 75 mg tablet,delayed release RxNorm: 319026 1 Tablet(s) PO BID 2021 Inactive This refill negates all other refills of this medication Sudafed 12 Hour 120 mg tablet,extended release RxNorm: 8367872 TAKE 1 TABLET BY MOUTH EVERY 12 HOURS NEEDED 020 2019 Inactive True Metrix Glucose Test Strip RxNorm: 1 Test Strips Miscellaneous every morning 2019 Inactive 100/container True Metrix Glucose Test Strip RxNorm: 1 Test Strips Miscellaneous QAM 020 2019 Inactive 100/container loperamide 2 mg tablet RxNorm: 902559 1 Tablet(s) Oral as needed take one tablet after each loose stool, maximum of 8 tablets in 24 hours 020 2019 Inactive cetirizine 10 mg tablet RxNorm: 2742941 1 Tablet(s) PO daily 2019 Inactive loperamide 2 mg tablet RxNorm: 565307 1 Tablet(s) Oral as needed take one tablet after each loose stool, maximum of 8 tablets in 24 hours 020 2019 Inactive quetiapine 100 mg tablet RxNorm: 706837 1 Tablet(s) Oral every night at bedtime 2019 Inactive levothyroxine 50 mcg tablet RxNorm: 728088 1 Tablet(s) PO daily 2020 Inactive gabapentin 300 mg capsule RxNorm: 302479 1 Capsule(s) PO TID 2019 Inactive levothyroxine 50 mcg tablet RxNorm: 894412 1 Tablet(s) PO daily 2019 Inactive lisinopril 2.5 mg tablet RxNorm: 149243 1 Tablet(s) PO daily 2020 Inactive gabapentin 300 mg capsule RxNorm: 852857 1 Capsule(s) PO TID 2019 Inactive cetirizine 10 mg tablet RxNorm: 1767698 1 Tablet(s) PO daily 2019 Inactive Singulair 10 mg tablet RxNorm: 749335 1 Tablet(s) PO daily 2020 Inactive gentamicin 0.3 % eye drops RxNorm: 830757 1 Drop(s) ophthalmic (eye) four times a day 2019 Inactive gentamicin 0.3 % eye drops RxNorm: 190914 1 Drop(s) ophthalmic (eye) four times a day 2019 Inactive gentamicin 0.3 % eye drops RxNorm: 107653 1 Drop(s) ophthalmic (eye) four times a day 020 2019 Inactive hydrochlorothiazide 25 mg tablet RxNorm: 507401 1 Tablet(s) Oral every day 2019 Inactive Sudafed 12 Hour 120 mg tablet,extended release RxNorm: 8560563 TAKE (1) TABLET BY MOUTH EVERY 12 HOURS NEEDED 2019 Inactive loperamide 2 mg tablet RxNorm: 408497 1 Tablet(s) Oral as needed take one tablet after each loose stool, maximum of 8 tablets in 24 hours 2019 Inactive loperamide 2 mg tablet RxNorm: 305362 1 Tablet(s) Oral as needed take one tablet after each loose stool, maximum of 8 tablets in 24 hours 2019 Inactive atorvastatin 40 mg tablet RxNorm: 710905 1 Tablet(s) Oral every day 2020 Inactive quetiapine 100 mg tablet RxNorm: 586327 1 Tablet(s) Oral every night at bedtime 2019 Inactive sertraline 100 mg tablet RxNorm: 972579 1 Tablet(s) Oral 2019 Inactive omeprazole 20 mg capsule,delayed release RxNorm: 522458 1 Capsule(s) Oral every day 2019 Inactive amoxicillin 250 mg capsule RxNorm: 748636 1 Capsule(s) Oral three times a day 2019 Inactive multivitamin with iron-mineral tablet RxNorm: 1 Tablet(s) Oral every day 2021 Inactive cetirizine 10 mg tablet RxNorm: 2938161 1 Tablet(s) PO daily 2019 Inactive This refill negates all other refills of this medication. Please do not auto refill Singulair 10 mg tablet RxNorm: 823439 1 Tablet(s) PO daily 2019 Inactive This refill negates all other refills of this medication gabapentin 300 mg capsule RxNorm: 178679 1 Capsule(s) PO TID 2019 Inactive lisinopril 2.5 mg tablet RxNorm: 949250 1 Tablet(s) PO daily 2019 Inactive levothyroxine 50 mcg tablet RxNorm: 781962 1 Tablet(s) PO daily 2019 Inactive This refill negates all other refills of this medication hydrochlorothiazide 25 mg tablet RxNorm: 339833 1 Tablet(s) Oral every day 2019 Inactive fenugreek seed extract 500 mg capsule RxNorm: 1 Capsule(s) Oral three times a day 2021 Inactive Alcohol Prep Pads RxNorm: 590229 1 Patch TOP QAM 2020 Inactive loperamide 2 mg tablet RxNorm: 518959 1 Tablet(s) Oral as needed take one [...] 2019 Inactive hydrochlorothiazide 25 mg tablet RxNorm: 909833 1 Tablet(s) Oral every day 2019 Inactive Sudafed 12 Hour 120 mg tablet,extended release RxNorm: 1084445 1 Tablet(s) Oral every 12 hours as needed 2018 Inactive omeprazole 20 mg capsule,delayed release RxNorm: 889070 1 Capsule(s) Oral every day 019 2019 Inactive Sudafed 12 Hour 120 mg tablet,extended release RxNorm: 8192470 1 Tablet(s) Oral every 12 hours as needed 019 2018 Inactive pantoprazole 40 mg tablet,delayed release RxNorm: 582551 1 Tablet(s) Oral every day 019 2018 Inactive discontinue any other H2Blkr. and PPI albuterol sulfate 2.5 mg/3 mL (0.083 %) solution for nebulization RxNorm: 715798 1 Vial Inhalation every four hours as needed as needed for dyspnea 2019 Inactive 60/box. This refill negates all other refills of this medication. Please do not fill early. Please do not auto refill. Symbicort 160 mcg-4.5 mcg/actuation HFA aerosol inhaler RxNorm: 4159067 2 Puff(s) INH BID No Stop Date Active Alcohol Prep Pads RxNorm: 300419 1 Patch TOP QAM 019 2019 Inactive Ventolin HFA 90 mcg/actuation aerosol inhaler RxNorm: 970442 2 Puff(s) INH QID 2019 Inactive Please do not fill early. Please do not auto refill. This refill negates all other refills of this medication True Metrix Glucose Test Strip RxNorm: 1 Test Strips Miscellaneous QAM 019 2019 Inactive 100/container atorvastatin 40 mg tablet RxNorm: 395643 1 Tablet(s) Oral every day 019 2019 Inactive buspirone 7.5 mg tablet RxNorm: 543306 1 Tablet(s) PO BID 019 2020 Inactive This refill negates all other refills of this medication hydrochlorothiazide 12.5 mg tablet RxNorm: 502334 1 Tablet(s) PO QAM 019 2019 Inactive levmetamfetamine 50 mg nasal inhaler RxNorm: 1 Unit(s) NASAL Q3-4H Do not use more than every 3 hours or 8 times/24hours 019 2021 Inactive Please do not auto refill. This refill negates all other refills of this medication Ventolin HFA 90 mcg/actuation aerosol inhaler RxNorm: 905735 2 Puff(s) INH QID 019 2018 Inactive Please do not fill early. Please do not auto refill. This refill negates all other refills of this medication Singulair 10 mg tablet RxNorm: 914993 1 Tablet(s) PO daily 019 2019 Inactive This refill negates all other refills of this medication cetirizine 10 mg tablet RxNorm: 7914068 1 Tablet(s) PO daily 019 2019 Inactive This refill negates all other refills of this medication. Please do not auto refill levothyroxine 50 mcg tablet RxNorm: 056020 1 Tablet(s) PO daily 019 2019 Inactive This refill negates all other refills of this medication diclofenac sodium 75 mg tablet,delayed release RxNorm: 379828 1 Tablet(s) PO BID 019 2019 Inactive This refill negates all other refills of this medication ranitidine 150 mg tablet RxNorm: 053446 1 Tablet(s) PO BID 019 2018 Inactive This refill negates all other refills of this medication Calcium 600-D3 Plus (mag-zinc) 600 mg calcium-800 unit-50 mg tablet RxNorm: 1 Tablet(s) PO daily take an additonal tablet for itching. 019 2018 Inactive This refill negates all other refills of this medication albuterol sulfate 2.5 mg/3 mL (0.083 %) solution for nebulization RxNorm: 019626 1 Vial INH QID 019 2018 Inactive 60/box. This refill negates all other refills of this medication. Please do not fill early. Please do not auto refill. lisinopril 2.5 mg tablet RxNorm: 966092 1 Tablet(s) PO daily 019 2019 Inactive gabapentin 300 mg capsule RxNorm: 178059 1 Capsule(s) PO TID 019 2019 Inactive atorvastatin 20 mg tablet RxNorm: 287506 1 Tablet(s) PO QHS 2018 Inactive This refill negates all other refills of this medication TRUEplus Lancets 30 gauge RxNorm: 1 Lancets Miscellaneous QAM 2018 Inactive 100/box gabapentin 300 mg capsule RxNorm: 854713 1 Capsule(s) PO TID 2018 Inactive Flintstones Complete (iron) 18 mg iron chewable tablet RxNorm: 1 Tablet(s) PO daily 2021 Inactive This refill negates all other refills of this medication gabapentin 300 mg capsule RxNorm: 246802 1 Capsule(s) PO TID as needed 2018 Inactive True Metrix Glucose Test Strip RxNorm: 1 Test Strips Miscellaneous QAM 019 2018 Inactive 100/container Alcohol Prep Pads RxNorm: 395890 1 Patch TOP QAM 2018 Inactive TRUEplus Lancets 30 gauge RxNorm: 1 Lancets Miscellaneous QAM 019 2018 Inactive 100/box lisinopril 2.5 mg tablet RxNorm: 047586 1 Tablet(s) PO daily 2018 Inactive ranitidine 150 mg tablet RxNorm: 909554 1 Tablet(s) PO BID 2018 Inactive This refill negates all other refills of this medication albuterol sulfate 2.5 mg/3 mL (0.083 %) solution for nebulization RxNorm: 710258 1 Vial INH QID 019 2018 Inactive [...] this medication gabapentin 300 mg capsule RxNorm: 295154 1 Capsule(s) PO TID as needed 019 2018 Inactive atorvastatin 20 mg tablet RxNorm: 841797 1 Tablet(s) PO QHS 019 2018 Inactive This refill negates all other refills of this medication trazodone 50 mg tablet RxNorm: 721357 1 Tablet(s) PO QHS 019 2018 Inactive This refill negates all other refills of this medication Ventolin HFA 90 mcg/actuation aerosol inhaler RxNorm: 472455 2 Puff(s) INH QID 019 2018 Inactive Please do not fill early. Please do not auto refill. This refill negates all other refills of this medication Calcium 600-D3 Plus 600 mg calcium-800 unit-50 mg tablet RxNorm: 1 Tablet(s) PO daily take an additonal tablet for itching. 019 2018 Inactive This refill negates all other refills of this medication Singulair 10 mg tablet RxNorm: 854948 1 Tablet(s) PO daily 019 2018 Inactive This refill negates all other refills of this medication buspirone 7.5 mg tablet RxNorm: 586607 1 Tablet(s) PO BID 019 2018 Inactive This refill negates all other refills of this medication diclofenac sodium 75 mg tablet,delayed release RxNorm: 962548 1 Tablet(s) PO BID 019 2018 Inactive This refill negates all other refills of this medication hydrochlorothiazide 12.5 mg tablet RxNorm: 951873 1 Tablet(s) PO QAM 019 2018 Inactive metoprolol succinate ER 50 mg tablet,extended release 24 hr RxNorm: 615635 1 Tablet(s) PO daily 019 2018 Inactive This refill negates all other refills of this medication levothyroxine 50 mcg tablet RxNorm: 543638 1 Tablet(s) PO daily 019 2018 Inactive This refill negates all other refills of this medication cetirizine 10 mg tablet RxNorm: 9516402 1 Tablet(s) PO daily 019 2018 Inactive This refill negates all other refills of this medication. Please do not auto refill Flintstones Complete (iron) 18 mg iron chewable tablet RxNorm: 1 Tablet(s) PO daily 019 2018 Inactive This refill negates all other refills of this medication buspirone 7.5 mg tablet RxNorm: 495264 1 Tablet(s) PO BID 2018 Inactive cetirizine 10 mg tablet RxNorm: 1404208 1 Tablet(s) PO daily 2018 Inactive Guaiasorb DM 10 mg-100 mg/5 mL oral liquid RxNorm: 628035 10 Milliliter(s) PO As needed every 4 hr 2018 Inactive Vicks Vaporub 4.7 %-1.2 %-2.6 % topical ointment RxNorm: 8982753 1 Application TOP TID 2018 Inactive levmetamfetamine 50 mg nasal inhaler RxNorm: 1 Unit(s) NASAL Q3-4H 2017 Inactive sertraline 50 mg tablet RxNorm: 823558 1 Tablet(s) PO daily 2018 Inactive Please note dose trazodone 50 mg tablet RxNorm: 307757 1 Tablet(s) PO QHS 2018 Inactive sertraline 50 mg tablet RxNorm: 100859 1 Tablet(s) PO daily 018 2017 Inactive amoxicillin 500 mg tablet RxNorm: 746756 1 Tablet(s) PO Q12H 2017 Inactive albuterol sulfate 2.5 mg/3 mL (0.083 %) solution for nebulization RxNorm: 754261 1 Vial INH QID 018 2018 Inactive 60/box. Please do not fill early. Please do not auto refill. Prozac 10 mg capsule RxNorm: 065381 1 Capsule(s) PO daily 018 2017 Inactive buspirone 7.5 mg tablet RxNorm: 850055 1 Tablet(s) PO BID 018 2018 Inactive gabapentin 300 mg capsule RxNorm: 168518 1 Capsule(s) PO TID as needed 018 2018 Inactive hydrochlorothiazide 12.5 mg tablet RxNorm: 005413 1 Tablet(s) PO QAM 2018 Inactive ranitidine 150 mg tablet RxNorm: 404527 1 Tablet(s) PO BID 018 2018 Inactive Macrobid 100 mg capsule RxNorm: 674399 1 Capsule(s) PO Q12H 018 2017 Inactive Singulair 10 mg tablet RxNorm: 435940 1 Tablet(s) PO daily 018 2018 Inactive Ventolin HFA 90 mcg/actuation aerosol inhaler RxNorm: 7294191 2 Puff(s) INH QID 018 2018 Inactive Singulair 10 mg tablet RxNorm: 817523 1 Tablet(s) PO daily 018 2017 Inactive buspirone 7.5 mg tablet RxNorm: 417197 1 Tablet(s) PO BID 018 2017 Inactive Prozac 10 mg capsule RxNorm: 349192 1 Capsule(s) PO daily 018 2017 Inactive diclofenac sodium 75 mg tablet,delayed release RxNorm: 579268 1 Tablet(s) PO BID 018 2017 Inactive lisinopril 2.5 mg tablet RxNorm: 922933 1 Tablet(s) PO daily 018 2017 Inactive Neilmed Pediatric Sinus Rinse Refill packet RxNorm: 1 Unit Dose NASAL PRN 018 2021 Inactive metoprolol succinate ER 50 mg tablet,extended release 24 hr RxNorm: 043158 1 Tablet(s) PO daily 018 2017 Inactive levothyroxine 50 mcg tablet RxNorm: 936996 1 Tablet(s) PO daily 018 2017 Inactive TRUEplus Lancets 30 gauge RxNorm: 1 Lancets Miscellaneous QAM 018 2017 Inactive 100/box Ventolin HFA 90 mcg/actuation aerosol inhaler RxNorm: 901064 2 Puff(s) INH QID 018 2017 Inactive Aleve 220 mg capsule RxNorm: 0327943 1 Capsule(s) PO BID 018 2018 Inactive ranitidine 150 mg tablet RxNorm: 828227 1 Tablet(s) PO BID 018 2017 Inactive gabapentin 300 mg capsule RxNorm: 315302 1 Capsule(s) PO TID as needed 018 2017 Inactive atorvastatin 20 mg tablet RxNorm: 974425 1 Tablet(s) PO QHS 018 2017 Inactive True Metrix Glucose Test Strip RxNorm: 1 Test Strips Miscellaneous [facility] 018 2017 Inactive 50/container Calcium 600-D3 Plus 600 mg calcium-800 unit-50 mg tablet RxNorm: 1 Tablet(s) PO daily take an additonal tablet for itching. 018 2017 Inactive hydrochlorothiazide 12.5 mg tablet RxNorm: 930047 1 Tablet(s) PO QAM 018 2017 Inactive Flintstones Complete (iron) 18 mg iron chewable tablet RxNorm: 1 Tablet(s) PO daily 018 2017 Inactive True Metrix Glucose Meter RxNorm: miscellaneous 019 2018 Inactive sertraline 50 mg tablet RxNorm: 139107 1 Tablet(s) PO daily 020 2019 Inactive loperamide 2 mg tablet RxNorm: 708154 oral 019 2018 Inactive d-mannose oral powder RxNorm: PO 018 2021 Inactive Symbicort 160 mcg-4.5 mcg/actuation HFA aerosol inhaler RxNorm: 0109580 2 Puff(s) INH BID 019 2018 Inactive Medication Administered No Medication Administered data Procedures Procedure Codes Date [place] Assessment CPT-4: DSWA 04/02 Patient Health [...] CPT-4: VACP Fall Risk Assessment SNOMED CT: 42678563 4 CPT-4: DFRA 01/13/2021 [place] Assessment CPT-4: DSWA 12/01 Urinalysis, dip stick CPT-4: 45576 09/24/2020 Patient Health Questionnaire CPT-4: DPHQ Electrocardiogram CPT-4: 59528 05/14/2020 Tobacco Assessment/Screening CPT-4: TCA Fall Risk Assessment SNOMED CT: 84993648 4 CPT-4: DFRA 01/01/2020 Functional Assessment CPT-4: DFA 01/01/2020 [place] Assessment CPT-4: DSWA 11/04 Patient Health Questionnaire CPT-4: DPHQ [place] Assessment CPT-4: DSWA 10/03 Hypertension CPT-4: HTN 10/17/2019 Fall Risk Assessment SNOMED CT: 22824495 4 CPT-4: DFRA 09/19/2019 Functional Assessment CPT-4: DFA 09/19/2019 Urinalysis, dip stick CPT-4: 73454 06/21/2019 Tobacco Assessment/Screening CPT-4: TCA Patient Health Questionnaire CPT-4: DPHQ AHA/REBECCA Classification Assessment CPT-4: DAHA 04/25/2019 Controlled Substance Report CPT-4: CTRSU 04/03 Urinalysis, dip stick CPT-4: 65705 03/28/2019 Urinalysis, dip stick CPT-4: 93917 03/28/2019 Z0X-Vipljojjuxmxgsx CPT-4: 94782 Unknown Q8L-Soqbgsoixlnoqxv CPT-4: 50927 Unknown I6L-Tlkhightugofdaj CPT-4: 42765 Unknown V0I-Xlchimfavkdvplx CPT-4: 61480 Unknown P8H-Djahaqdftstmulv CPT-4: 71061 Unknown Z1O-Csnqpxupfapxwub CPT-4: 92014 Unknown G7H-Udlpayvfjzavpdc CPT-4: 37395 Unknown R7E-Psxcploxdarhusg CPT-4: 71553 Unknown H7T-Kppgwllenyugzpz CPT-4: 07461 Unknown Gynecology Referral SNOMED CT: 845198857 CPT-4: R14 Unknown Reason For Visit No Reason For Visit data Plan of Care Planned Activity Notes Codes Status Date Visit Plan: 04/21/2022 Patient Education: Patient Medication Summary Completed 04/21/2022 Appointment: Chivo Bishop WPtel: [address] [place] [address] [address]410 04/19/2022 Appointment: Chivo Bishop WPtel: [address] [place] [address] [address]410 02/11/2022 Appointment: Mikey Nair WPtel: [facility] [address] [id number] [place] [address] 12/03/2021 Appointment: Chivo Bishop WPtel: [address] [place] [address] [address] 11/02/2021 Appointment: Chivo Bishop WPtel: [phone] [place] [address] E410 10/07/2021 Appointment: Chivo Bishop WPtel: [address] [place] [address] ETV 09/10/2021 Appointment: Chivo Bishop WPtel: [address] [place] [address] ETV 08/13/2021 Appointment: Chivo Bishop WPtel: [address] [place] [address] ETV 07/06/2021 Appointment: Chivo Bishop WPtel: [address] [place] [address] PHTV 06/10/2021 Appointment: Anna Culver WPtel: [address] [place] [address] ETV 06/02/2021 Appointment: Chivo Bishop WPtel: [address] [place] [address] ETV 05/20/2021 Appointment: Anna Culver WPtel: [address] [place] [address] ETV 04/28/2021 Appointment: Chivo Bishop WPtel: [address] [place] [address] ETV 04/15/2021 Appointment: Anna Culver WPtel: [address] [place] [address] E410 04/01/2021 Appointment: Anna Culver WPtel: [address] [place] [address] ETV 03/24/2021 Appointment: Anna Culver WPtel: [address] [place] [address] ETV 03/13/2021 Appointment: Anna Culver WPtel: [id number] [place] [address] E410 02/11/2021 Appointment: Chivo Bishop WPtel: [address] [place] [address] E410 01/29/2021 Appointment: Anna Culver WPtel: [address] [place] [address] ETV 01/13/2021 Appointment: Anna Culver WPtel: [address] [place] [address] E410 12/17/2020 Appointment: Chivo Bishop WPtel: [address] [place] [address] ETV 11/28/2020 Appointment: Anna Culver WPtel: [address] [place] [address] ETV 11/24/2020 Appointment: Anna Culver WPtel: [address] [place] [address] E410 10/29/2020 Appointment: Anna Culver WPtel: [address] [place] [address] E410 09/24/2020 Appointment: Anna Culver WPtel: [address] [place] [address] ETV 08/26/2020 Appointment: Anna Culver WPtel: [address] [place] [address] ETV 08/19/2020 Appointment: Anna Cluver WPtel: [address] [place] [address] ETV 07/22/2020 Appointment: Anna Culver WPtel: [address] [place] [address] ETV 07/08/2020 Appointment: Gianna Birmingham:[phone] [address] [facility] [address] [id number] [place] ECHO 07/02/2020 Appointment: Anna Culver WPtel: [id number] [place] [address] E452 06/11/2020 Appointment: Anna Culver WPtel: [address] [place] [address] E452 05/14/2020 Appointment: Anna Culver WPtel: [address] [place] [address] E452 04/17/2020 Appointment: Anna Culver WPtel: [address] [place] [address] E452 03/21/2020 Appointment: Anna Culver WPtel: [address] [place] [address] E452 02/14/2020 Appointment: Anna Culver WPtel: [address] [place] [address] E452 01/24/2020 Appointment: Anna Culver WPtel: [address] [place] [address] E452 01/01/2020 Appointment: Anna Culver WPtel: [address] [place] [address] E452 11/28/2019 Appointment: Anna Culver WPtel: [address] [place] [address] [place] E452 10/17/2019 Appointment: Anna Culver WPtel: [address] [place] [address] [place] E452 09/19/2019 Appointment: Sudha Hernadez WPtel: [address] [facility] [id number] E452 07/04/2019 Appointment: Sudha Hernadez WPtel: [address] [facility] [id number] E452 06/21/2019 Appointment: Charlene Oropeza WPtel: [address] [facility] [id number] E452 05/24/2019 Appointment: Bianca Delgadoedo E452 04/27/2019 Appointment: Charlene Oropeza WPtel: [address] [facility] [id number] E452 04/25/2019 Appointment: Rasta Palafox WPtel: [address] [facility] [id number] E452 03/28/2019 Appointment: Rasta Palafox WPtel: [address] [facility] [id number] E452 02/14/2019 Appointment: Rasta Palafox WPtel: [address] [place] [address] [id number] E452 01/31/2019 Appointment: Rasta Palafox WPtel: [address] [place] [address] [id number] E420 12/27/2018 Referral: Pending Gynecology Referral Information Referral Processed Referral: Pending Pulmonolog y Referral Information Referral Processed Referral: Pending Psychiatry Referral Information Referral Initiated Referral: Pending Respirator y Services Referral Information Referral Initiated Referral: Pending Ophthalmology Referral Information Referral Initiated Referral: [facility] WPtel: [address] Casing Fluid Tender placed a call out to the patient to notify her that it has been recommended that she be seen by 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 Patient agreed to be seen, does not have a provider of choice and no transportation issues. Casing Fluid Tender faxed referral and clinical notes to [facility] in [place], [place] near the patient's home. Patient to [...] seen and prefers a provider in the [place] area. Casing Fluid Tender placed a call out to everyone listed in the area and the only location that was able to accept the patient's insurance was [place] [address] [place] [address] and spoke with Maylin. Maylin asked that the patient's referral, face sheet and visit notes be faxed to . Casing Fluid Tender faxed over requested documents. Patient appointment confirmation letter generated and mailed to her home address. Patient to call to schedule an appointment. Processed Referral: [facility] WPtel: [address] [place] [address] Patient notified that it has been advised that she be seen by Neurology. Patient agreed to be seen and prefers to be seen by a provider in the [place], [place] area. Patient denies any concerns with transportation, and prefers to schedule her own appointment. Casing Fluid Tender placed a call out to [facility] and spoke with Neeraj P: who confirmed that their office is able to accept new patients and the patient's insurance. After confirming the providers fax number, typewriter assembly and parts inspector faxed over the patient's referral, and [...]
--- OUTSIDE RECORDS SUMMARY | 2022-04-22 20:00 | XMS_ITS | CCD ---
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 [address] [place] [address] ETV 05/20/2021 Appointment: Anna Culver WPtel: [address] [place] [address] ETV 04/28/2021 Appointment: Chivo Bishop WPtel: [address] [place] [address] ETV 04/15/2021 Appointment: Anna Culver WPtel: [address] [place] [address] E410 04/01/2021 Appointment: Anna Culver WPtel: [address] [place] [address] ETV 03/24/2021 Appointment: Anna Culver WPtel: [id number] [place] [address] ETV 03/13/2021 Appointment: Anna Culver WPtel: [address] [place] [address] E410 02/11/2021 Appointment: Chivo Bishop WPtel: [address] [place] [address] E410 01/29/2021 Appointment: Anna Culver WPtel: [address] [place] [address] ETV 01/13/2021 Appointment: Anna Culver WPtel: [address] [place] [address] E410 12/17/2020 Appointment: Chivo Bishop WPtel: [address] [place] [address] ETV 11/28/2020 Appointment: Anna Culver WPtel: [address] [place] [address] ETV 11/24/2020 Appointment: Anna Culver WPtel: [address] [place] [address] E410 10/29/2020 Appointment: Anna Culver WPtel: [address] [place] [address] E410 09/24/2020 Appointment: Anna Culver WPtel: [address] [place] [address] ETV 08/26/2020 Appointment: Anna Culver WPtel: [address] [place] [address] ETV 08/19/2020 Appointment: Anna Culver WPtel: [address] [place] [address] ETV 07/22/2020 Appointment: Anna Culver WPtel: [address] [place] [address] ETV 07/08/2020 Appointment: Gianna Birmingham Lita: [address] [facility] [address] [id number] [place] ECHO 07/02/2020 Appointment: Anna Culver WPtel: [id number] [place] [address] E452 06/11/2020 Appointment: Anna Culver WPtel: [id number] [place] [address] E452 05/14/2020 Appointment: Anna Culver WPtel: [address] [place] [address] E452 04/17/2020 Appointment: Anna Culver WPtel: [address] [place] [address] E452 03/21/2020 Appointment: Anna Culver WPtel: [address] [place] [address] E452 02/14/2020 Appointment: Anna Culver WPtel: [address] [place] [address] E452 01/24/2020 Appointment: Anna Culver WPtel: [address] [place] [address] E452 01/01/2020 Appointment: Anna Culver WPtel: [address] [place] [address] [place] E452 11/28/2019 Appointment: Anna Culver WPtel: [id number] [place] [address] [place] E452 10/17/2019 Appointment: Anna Culver WPtel: [address] [place] [address] [place] E452 09/19/2019 Appointment: Sudha Hernadez WPtel: [address] [facility] 202b [id number] [place] E452 07/04/2019 Appointment: Sudha Hernadez WPtel: [address] [facility] [id number] E452 06/21/2019 Appointment: Charlene Oropeza WPtel: [address] [facility] [id number] E452 05/24/2019 Appointment: Mallory Delgado E452 04/27/2019 Appointment: Charlene Oropeza WPtel: [address] [facility] [id number] E452 04/25/2019 Appointment: Rasta Palafox WPtel: [address] [facility] [id number] E452 03/28/2019 Appointment: Rasta Palafox WPtel: [address] [place] [address] [id number] E452 02/14/2019 Appointment: Rasta Palafox WPtel: [address] [place] [address] [id number] E452 01/31/2019 Appointment: Rasta Palafox WPtel: [address] [place] [address] [id number] E420 12/27/2018 Referral: Pending Gynecology Referral Information Referral Processed Referral: Pending Pulmonolog y Referral Information Referral Processed Referral: Pending Psychiatry Referral Information Referral Initiated Referral: Pending Respirator y Services Referral Information Referral Initiated Referral: Pending Ophthalmology Referral Information Referral Initiated Referral: [facility] WPtel: 3 [facility] [address] Ap Operator placed a call out to the patient to notify her that it has been recommended that she be seen by 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 Patient agreed to be seen, does not have a provider of choice and no transportation issues. Ap Operator faxed referral and clinical notes to [facility] in [place], [place] near the patient's home. Patient to [...] prefers a provider in the [place] or [place] area. Ap Operator placed a call out to everyone listed in the area and the only location that was able to accept the patient's insurance was [facility] [place] [address] and spoke with Maylin. Maylin asked that the patient's referral, face sheet and visit notes be faxed to . Ap Operator faxed over requested documents. Patient appointment confirmation letter generated and mailed to her home address. Patient to call to schedule an appointment. Processed Referral: [facility] Neurolog y WPtel: [address] [place] [address] Patient notified that it has been advised that she be seen by Neurology. Patient agreed to be seen and prefers to be seen by a provider in the [place], [place] area. Patient denies any concerns with transportation, and prefers to schedule her own appointment. Ap Operator placed a call out to [facility] and spoke with Neeraj [...]
--- OUTSIDE RECORDS SUMMARY | 2022-04-29 20:00 | XMS_ITS | CCD ---
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 Client Experience Administrator Name Role Phone Palomo KING, Anna Primary Care Provider Unav ailable Unavailable Chronic Care Management Unavaila ble Summary Purpose DataExchange Insurance Providers Payer name Policy type / Coverage type Covered constitution party ID Effective Begin Date Effective End Date SUKI MAYO [id number] Unknown Unknown Family history Mother Diagnosis Age [...] Unknown Disability 05/31/[address]: 709141996 Has never s moked or chewed tobacco 05/31/[address]: 565922969 Never drinks alco hol 05/31/2018 Has the patient ever used illegal drugs? Unknown Has never used illegal drugs 05/31/2018 DNR Order/ Advanced Directive Unknown Full Code 05/31/2018 Allergies, Adverse Reactions, Alerts Substance Reaction Codes Entered Date Inactivated Date Status OxyContin itch, RxNorm: 975268 01/13/2021 No Inactive Da te Active *No [...] ICD-10: E78. 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 ICD-10: Z79.899 ICD-9: V58.69 04/25/2019 Inactive Type 2 diabetes mellitus wit hout complications ICD-10: E11.9 ICD-9: 250.00 10/03/2018 Inactive Wheezing ICD-10: R06.2 ICD-9: 786.07 08/08/2018 Inactive Abnormal urine finding ICD-10: R82.90 ICD-9: 791.9 09/24/2020 Resolved Abrasion of toe ICD-10: S90.416A ICD-9: 917.0 02/14/2020 Resolved [place] [facility] ICD-10: H10.029 ICD-9: 372.03 12/29/2019 Resolved [...] Start Date Stop Date Status Fill Instructions famotidine 20 mg tablet RxNorm: 739789 Take 1 Tablet(s) Oral every morning 2021 Inactive levothyroxine 50 mcg tablet RxNorm: 047838 Take 1 Tablet(s) Oral every day 2021 Inactive atorvastatin 20 mg tablet RxNorm: 483047 Take 1 Tablet(s) Oral every night at bedtime 2021 Inactive Cleocin T 1 % lotion RxNorm: 128136 Take 2 Gram(s) Topical every day 022 2021 Inactive Cleocin T 1 % lotion RxNorm: 781123 Take 2 Gram(s) Topical every day 022 2021 Inactive Ozempic 1 mg/dose (4 mg/3 mL) subcutaneous pen injector RxNorm: 7263996 Take 1 Unit Dose Subcutaneous QWeek 2021 Inactive Ozempic 0.25 mg or 0.5 mg (2 mg/1.5 mL) subcutaneous pen injector RxNorm: 0237581 INJECT 0.5 MGS SUBCUTANEOUSLY EVERY WEEK 022 2021 Inactive omeprazole 20 mg capsule,delayed release RxNorm: 511806 Take 1 Capsule(s) Oral every evening 2021 Inactive levothyroxine 50 mcg tablet RxNorm: 382550 Take 1 Tablet(s) Oral every day 022 2021 Inactive atorvastatin 20 mg tablet RxNorm: 996543 Take 1 Tablet(s) Oral every night at bedtime 2021 Inactive This refill negates all other refills of this medication lisinopril 2.5 mg tablet RxNorm: 805940 Take 1 Tablet(s) Oral every day 2021 Inactive gabapentin 300 mg capsule RxNorm: 509548 Take 1 Capsule(s) Oral three times a day 2021 Inactive montelukast 10 mg tablet RxNorm: 518905 Take 1 Tablet(s) Oral every day 2021 Inactive cholecalciferol (vitamin D3) 50 mcg (2,000 unit) tablet RxNorm: 172376 Take 1 Tablet(s) Oral every day 2022 Inactive Myrbetriq 50 mg tablet,extended release RxNorm: 5934835 1 Tablet(s) Oral every day No Stop Date Active Ozempic 0.25 mg or 0.5 mg (2 mg/1.5 mL) subcutaneous pen injector RxNorm: 8047366 inject 0.5 milligrams subcutaneously every week 2021 Inactive Ozempic 0.25 mg or 0.5 mg (2 mg/1.5 mL) subcutaneous pen injector RxNorm: 1398372 Take 0.5 Capsule(s) Injection once a week 022 2021 Inactive omeprazole 20 mg capsule,delayed release RxNorm: 301760 Take 1 Capsule(s) Oral every evening 2020 Inactive Ozempic 0.25 mg or 0.5 mg (2 mg/1.5 mL) subcutaneous pen injector RxNorm: 5732719 Take 0.25 Milligram(s) Subcutaneous once a week 021 2021 Inactive Easy Touch Alcohol Prep Pads RxNorm: 723142 USE DIRECTED EACH MORNING 021 2021 Inactive Probiotic 10 billion cell capsule RxNorm: 3535564 Take 1 Capsule(s) Oral every day 2021 Inactive levothyroxine 50 mcg tablet RxNorm: 742978 Take 1 Tablet(s) Oral every day 021 2020 Inactive Acid Director Education (famotidine) 20 mg tablet RxNorm: 694385 Take 1 Tablet(s) Oral every morning 021 2020 Inactive Heartburn Relief (famotidine) 10 mg tablet RxNorm: 756184 Take 1 Tablet(s) Oral QAM 2020 Inactive levothyroxine 50 mcg tablet RxNorm: 180167 Take 1 Tablet(s) Oral QD 2020 Inactive Singulair 10 mg tablet RxNorm: 662089 TAKE (1) TABLET BY MOUTH DAILY 2020 Inactive metformin 1,000 mg tablet RxNorm: 243939 1 Tablet(s) Oral two times a day 021 2021 Inactive lisinopril 2.5 mg tablet RxNorm: 606812 Take 1 Tablet(s) Oral every day 021 2020 Inactive hydrochlorothiazide 25 mg tablet RxNorm: 916400 Take 1 Tablet(s) Oral every day 021 2020 Inactive ondansetron 4 mg disintegrating tablet RxNorm: 876380 1 Tablet(s) Oral two times a day 021 2020 Inactive Sudafed 12 Hour 120 mg tablet,extended release RxNorm: 1219031 TAKE 1 TABLET BY MOUTH EVERY 12 HOURS NEEDED 2021 Inactive Heartburn Relief (famotidine) 10 mg tablet RxNorm: 323921 Take 1 Tablet(s) Oral every morning 021 2020 Inactive omeprazole 20 mg capsule,delayed release RxNorm: 572007 1 Capsule(s) Oral every evening 021 2020 Inactive sertraline 100 mg tablet RxNorm: 551649 2 Tablet(s) Oral every day 021 2020 Inactive levothyroxine 50 mcg tablet RxNorm: 379219 TAKE (1) TABLET BY MOUTH DAILY 021 2020 Inactive metformin 500 mg tablet RxNorm: 508003 1 Tablet(s) Oral two times a day take with 500mg to equal 1000mg 021 2020 Inactive gabapentin 300 mg capsule RxNorm: 612251 TAKE 1 CAPSULE BY MOUTH THREE TIMES A DAY 021 2020 Inactive lisinopril 2.5 mg tablet RxNorm: 751339 TAKE 1 TABLET BY MOUTH DAILY 021 2020 Inactive gabapentin 300 mg capsule RxNorm: 331666 TAKE 1 CAPSULE BY MOUTH THREE TIMES A DAY 021 2020 Inactive Singulair 10 mg tablet RxNorm: 721978 TAKE (1) TABLET BY MOUTH DAILY 021 2020 Inactive metformin 1,000 mg tablet RxNorm: 787627 1 Tablet(s) Oral two times a day 021 2020 Inactive atorvastatin 40 mg tablet RxNorm: 569207 1 Tablet(s) Oral every day 021 2020 Inactive omeprazole 20 mg capsule,delayed release RxNorm: 109335 1 Capsule(s) Oral every evening 021 2020 Inactive famotidine 10 mg tablet RxNorm: 875814 1 Tablet(s) Oral every morning 021 2020 Inactive Alcohol Prep Pads RxNorm: 176934 USE EACH MORNING 021 2020 Inactive omeprazole 20 mg capsule,delayed release RxNorm: 075477 1 Capsule(s) Oral two times a day 021 2021 Inactive omeprazole 20 mg capsule,delayed release RxNorm: 448763 TAKE 1 CAPSULE BY MOUTH EVERY DAY 021 2021 Inactive Macrobid 100 mg capsule RxNorm: 931343 1 Capsule(s) Oral every 12 hours with food 2020 Inactive omeprazole 20 mg capsule,delayed release RxNorm: 301377 1 Capsule(s) Oral two times a day 2021 Inactive metformin 1,000 mg tablet RxNorm: 515560 1 Tablet(s) Oral two times a day 2020 Inactive start on September 11, 2020 metformin 500 mg tablet RxNorm: 061115 1 Tablet(s) Oral two times a day take with 500mg to equal 1000mg 2019 Inactive gabapentin 300 mg capsule RxNorm: 154905 TAKE 1 CAPSULE BY MOUTH THREE TIMES DAILY 2020 Inactive cetirizine 10 mg tablet RxNorm: 8142506 TAKE (1) TABLET BY MOUTH DAILY 2020 Inactive metformin 500 mg tablet RxNorm: 143668 1 Tablet(s) Oral two times a day 2019 Inactive loperamide 2 mg tablet RxNorm: 154510 1 Tablet(s) Oral as needed take one tablet after each loose stool, maximum of 8 tablets in 24 hours 2021 Inactive Sudafed 12 Hour 120 mg tablet,extended release RxNorm: 3295935 TAKE 1 TABLET BY MOUTH EVERY 12 HOURS NEEDED 2019 Inactive hydrochlorothiazide 25 mg tablet RxNorm: 269516 TAKE (1) TABLET BY MOUTH EVERY DAY 2019 Inactive omeprazole 20 mg capsule,delayed release RxNorm: 852139 TAKE 1 CAPSULE BY MOUTH EVERY DAY 2020 Inactive metformin 500 mg tablet RxNorm: 353990 1 Tablet(s) Oral every day 2019 Inactive True Metrix Glucose Test Strip RxNorm: 1 Test Strips Miscellaneous two times a day as needed No Stop Date Active metformin 500 mg tablet RxNorm: 751025 1 Tablet(s) Oral every day 2019 Inactive diclofenac sodium 75 mg tablet,delayed release RxNorm: 186941 1 Tablet(s) PO BID 2021 Inactive This refill negates all other refills of this medication Sudafed 12 Hour 120 mg tablet,extended release RxNorm: 2758119 TAKE 1 TABLET BY MOUTH EVERY 12 HOURS NEEDED 020 2019 Inactive True Metrix Glucose Test Strip RxNorm: 1 Test Strips Miscellaneous every morning 020 2019 Inactive 100/container True Metrix Glucose Test Strip RxNorm: 1 Test Strips Miscellaneous QAM 020 2019 Inactive 100/container loperamide 2 mg tablet RxNorm: 014584 1 Tablet(s) Oral as needed take one tablet after each loose stool, maximum of 8 tablets in 24 hours 020 2019 Inactive cetirizine 10 mg tablet RxNorm: 2331839 1 Tablet(s) PO daily 2019 Inactive loperamide 2 mg tablet RxNorm: 291363 1 Tablet(s) Oral as needed take one tablet after each loose stool, maximum of 8 tablets in 24 hours 020 2019 Inactive quetiapine 100 mg tablet RxNorm: 865075 1 Tablet(s) Oral every night at bedtime 2019 Inactive levothyroxine 50 mcg tablet RxNorm: 820389 1 Tablet(s) PO daily 2020 Inactive gabapentin 300 mg capsule RxNorm: 529651 1 Capsule(s) PO TID 020 2019 Inactive levothyroxine 50 mcg tablet RxNorm: 838960 1 Tablet(s) PO daily 020 2019 Inactive lisinopril 2.5 mg tablet RxNorm: 724321 1 Tablet(s) PO daily 020 2020 Inactive gabapentin 300 mg capsule RxNorm: 095983 1 Capsule(s) PO TID 020 2019 Inactive cetirizine 10 mg tablet RxNorm: 6269983 1 Tablet(s) PO daily 020 2019 Inactive Singulair 10 mg tablet RxNorm: 475324 1 Tablet(s) PO daily 2020 Inactive gentamicin 0.3 % eye drops RxNorm: 386547 1 Drop(s) ophthalmic (eye) four times a day 2019 Inactive gentamicin 0.3 % eye drops RxNorm: 078305 1 Drop(s) ophthalmic (eye) four times a day 2019 Inactive gentamicin 0.3 % eye drops RxNorm: 536737 1 Drop(s) ophthalmic (eye) four times a day 2019 Inactive hydrochlorothiazide 25 mg tablet RxNorm: 567715 1 Tablet(s) Oral every day 2019 Inactive Sudafed 12 Hour 120 mg tablet,extended release RxNorm: 4731991 TAKE (1) TABLET BY MOUTH EVERY 12 HOURS NEEDED 2019 Inactive loperamide 2 mg tablet RxNorm: 566231 1 Tablet(s) Oral as needed take one tablet after each loose stool, maximum of 8 tablets in 24 hours 020 2019 Inactive loperamide 2 mg tablet RxNorm: 486527 1 Tablet(s) Oral as needed take one tablet after each loose stool, maximum of 8 tablets in 24 hours 020 2019 Inactive atorvastatin 40 mg tablet RxNorm: 535217 1 Tablet(s) Oral every day 2020 Inactive quetiapine 100 mg tablet RxNorm: 076459 1 Tablet(s) Oral every night at bedtime 2019 Inactive sertraline 100 mg tablet RxNorm: 698174 1 Tablet(s) Oral 2019 Inactive omeprazole 20 mg capsule,delayed release RxNorm: 357429 1 Capsule(s) Oral every day 020 2019 Inactive amoxicillin 250 mg capsule RxNorm: 303261 1 Capsule(s) Oral three times a day 020 2019 Inactive multivitamin with iron-mineral tablet RxNorm: 1 Tablet(s) Oral every day 2021 Inactive cetirizine 10 mg tablet RxNorm: 4309806 1 Tablet(s) PO daily 2019 Inactive This refill negates all other refills of this medication. Please do not auto refill Singulair 10 mg tablet RxNorm: 944372 1 Tablet(s) PO daily 2019 Inactive This refill negates all other refills of this medication gabapentin 300 mg capsule RxNorm: 357097 1 Capsule(s) PO TID 2019 Inactive lisinopril 2.5 mg tablet RxNorm: 491423 1 Tablet(s) PO daily 2019 Inactive levothyroxine 50 mcg tablet RxNorm: 980081 1 Tablet(s) PO daily 2019 Inactive This refill negates all other refills of this medication hydrochlorothiazide 25 mg tablet RxNorm: 603948 1 Tablet(s) Oral every day 2019 Inactive fenugreek seed extract 500 mg capsule RxNorm: 1 Capsule(s) Oral three times a day 2021 Inactive Alcohol Prep Pads RxNorm: 196897 1 Patch TOP QAM 2020 Inactive loperamide 2 mg tablet RxNorm: 777661 1 Tablet(s) Oral as needed take one [...] 2019 Inactive hydrochlorothiazide 25 mg tablet RxNorm: 523006 1 Tablet(s) Oral every day 019 2019 Inactive Sudafed 12 Hour 120 mg tablet,extended release RxNorm: 9826543 1 Tablet(s) Oral every 12 hours as needed 2018 Inactive omeprazole 20 mg capsule,delayed release RxNorm: 393037 1 Capsule(s) Oral every day 2019 Inactive Sudafed 12 Hour 120 mg tablet,extended release RxNorm: 0131751 1 Tablet(s) Oral every 12 hours as needed 2018 Inactive pantoprazole 40 mg tablet,delayed release RxNorm: 009727 1 Tablet(s) Oral every day 2018 Inactive discontinue any other H2Blkr. and PPI albuterol sulfate 2.5 mg/3 mL (0.083 %) solution for nebulization RxNorm: 184757 1 Vial Inhalation every four hours as needed as needed for dyspnea 2019 Inactive 60/box. This refill negates all other refills of this medication. Please do not fill early. Please do not auto refill. Symbicort 160 mcg-4.5 mcg/actuation HFA aerosol inhaler RxNorm: 9378807 2 Puff(s) INH BID No Stop Date Active Alcohol Prep Pads RxNorm: 944185 1 Patch TOP QAM 2019 Inactive Ventolin HFA 90 mcg/actuation aerosol inhaler RxNorm: 967175 2 Puff(s) INH QID 2019 Inactive Please do not fill early. Please do not auto refill. This refill negates all other refills of this medication True Metrix Glucose Test Strip RxNorm: 1 Test Strips Miscellaneous QAM 019 2019 Inactive 100/container atorvastatin 40 mg tablet RxNorm: 306082 1 Tablet(s) Oral every day 019 2019 Inactive buspirone 7.5 mg tablet RxNorm: 607879 1 Tablet(s) PO BID 019 2020 Inactive This refill negates all other refills of this medication hydrochlorothiazide 12.5 mg tablet RxNorm: 832367 1 Tablet(s) PO QAM 019 2019 Inactive levmetamfetamine 50 mg nasal inhaler RxNorm: 1 Unit(s) NASAL Q3-4H Do not use more than every 3 hours or 8 times/24hours 019 2021 Inactive Please do not auto refill. This refill negates all other refills of this medication Ventolin HFA 90 mcg/actuation aerosol inhaler RxNorm: 794189 2 Puff(s) INH QID 019 2018 Inactive Please do not fill early. Please do not auto refill. This refill negates all other refills of this medication Singulair 10 mg tablet RxNorm: 153932 1 Tablet(s) PO daily 019 2019 Inactive This refill negates all other refills of this medication cetirizine 10 mg tablet RxNorm: 9466101 1 Tablet(s) PO daily 019 2019 Inactive This refill negates all other refills of this medication. Please do not auto refill levothyroxine 50 mcg tablet RxNorm: 430131 1 Tablet(s) PO daily 019 2019 Inactive This refill negates all other refills of this medication diclofenac sodium 75 mg tablet,delayed release RxNorm: 804196 1 Tablet(s) PO BID 019 2019 Inactive This refill negates all other refills of this medication ranitidine 150 mg tablet RxNorm: 246719 1 Tablet(s) PO BID 019 2018 Inactive This refill negates all other refills of this medication Calcium 600-D3 Plus (mag-zinc) 600 mg calcium-800 unit-50 mg tablet RxNorm: 1 Tablet(s) PO daily take an additonal tablet for itching. 019 2018 Inactive This refill negates all other refills of this medication albuterol sulfate 2.5 mg/3 mL (0.083 %) solution for nebulization RxNorm: 868004 1 Vial INH QID 019 2018 Inactive 60/box. This refill negates all other refills of this medication. Please do not fill early. Please do not auto refill. lisinopril 2.5 mg tablet RxNorm: 556674 1 Tablet(s) PO daily 019 2019 Inactive gabapentin 300 mg capsule RxNorm: 415474 1 Capsule(s) PO TID 019 2019 Inactive atorvastatin 20 mg tablet RxNorm: 612296 1 Tablet(s) PO QHS 2018 Inactive This refill negates all other refills of this medication TRUEplus Lancets 30 gauge RxNorm: 1 Lancets Miscellaneous QAM 019 2018 Inactive 100/box gabapentin 300 mg capsule RxNorm: 946407 1 Capsule(s) PO TID 019 2018 Inactive Flintstones Complete (iron) 18 mg iron chewable tablet RxNorm: 1 Tablet(s) PO daily 019 2021 Inactive This refill negates all other refills of this medication gabapentin 300 mg capsule RxNorm: 236381 1 Capsule(s) PO TID as needed 019 2018 Inactive True Metrix Glucose Test Strip RxNorm: 1 Test Strips Miscellaneous QA 2018 Inactive 100/container Alcohol Prep Pads RxNorm: 150894 1 Patch TOP QAM 019 2018 Inactive TRUEplus Lancets 30 gauge RxNorm: 1 Lancets Miscellaneous QAM 019 2018 Inactive 100/box lisinopril 2.5 mg tablet RxNorm: 787247 1 Tablet(s) PO daily 019 2018 Inactive ranitidine 150 mg tablet RxNorm: 433409 1 Tablet(s) PO BID 019 2018 Inactive This refill negates all other refills of this medication albuterol sulfate 2.5 mg/3 mL (0.083 %) solution for nebulization RxNorm: 684609 1 Vial INH QID 019 2018 Inactive [...] this medication gabapentin 300 mg capsule RxNorm: 918257 1 Capsule(s) PO TID as needed 019 2018 Inactive atorvastatin 20 mg tablet RxNorm: 678100 1 Tablet(s) PO QHS 019 2018 Inactive This refill negates all other refills of this medication trazodone 50 mg tablet RxNorm: 666928 1 Tablet(s) PO QHS 019 2018 Inactive This refill negates all other refills of this medication Ventolin HFA 90 mcg/actuation aerosol inhaler RxNorm: 836679 2 Puff(s) INH QID 019 2018 Inactive Please do not fill early. Please do not auto refill. This refill negates all other refills of this medication Calcium 600-D3 Plus 600 mg calcium-800 unit-50 mg tablet RxNorm: 1 Tablet(s) PO daily take an additonal tablet for itching. 019 2018 Inactive This refill negates all other refills of this medication Singulair 10 mg tablet RxNorm: 710591 1 Tablet(s) PO daily 019 2018 Inactive This refill negates all other refills of this medication buspirone 7.5 mg tablet RxNorm: 512990 1 Tablet(s) PO BID 019 2018 Inactive This refill negates all other refills of this medication diclofenac sodium 75 mg tablet,delayed release RxNorm: 901848 1 Tablet(s) PO BID 019 2018 Inactive This refill negates all other refills of this medication hydrochlorothiazide 12.5 mg tablet RxNorm: 051605 1 Tablet(s) PO QAM 019 2018 Inactive metoprolol succinate ER 50 mg tablet,extended release 24 hr RxNorm: 228735 1 Tablet(s) PO daily 019 2018 Inactive This refill negates all other refills of this medication levothyroxine 50 mcg tablet RxNorm: 814785 1 Tablet(s) PO daily 019 2018 Inactive This refill negates all other refills of this medication cetirizine 10 mg tablet RxNorm: 5329591 1 Tablet(s) PO daily 019 2018 Inactive This refill negates all other refills of this medication. Please do not auto refill Flintstones Complete (iron) 18 mg iron chewable tablet RxNorm: 1 Tablet(s) PO daily 019 2018 Inactive This refill negates all other refills of this medication buspirone 7.5 mg tablet RxNorm: 899303 1 Tablet(s) PO BID 019 2018 Inactive cetirizine 10 mg tablet RxNorm: 6967190 1 Tablet(s) PO daily 018 2018 Inactive Guaiasorb DM 10 mg-100 mg/5 mL oral liquid RxNorm: 183265 10 Milliliter(s) PO As needed every 4 hr 2018 Inactive Vicks Vaporub 4.7 %-1.2 %-2.6 % topical ointment RxNorm: 6953043 1 Application TOP TID 2018 Inactive levmetamfetamine 50 mg nasal inhaler RxNorm: 1 Unit(s) NASAL Q3-4H 018 2017 Inactive sertraline 50 mg tablet RxNorm: 518611 1 Tablet(s) PO daily 018 2018 Inactive Please note dose trazodone 50 mg tablet RxNorm: 571762 1 Tablet(s) PO QHS 018 2018 Inactive sertraline 50 mg tablet RxNorm: 100029 1 Tablet(s) PO daily 018 2017 Inactive amoxicillin 500 mg tablet RxNorm: 767970 1 Tablet(s) PO Q12H 018 2017 Inactive albuterol sulfate 2.5 mg/3 mL (0.083 %) solution for nebulization RxNorm: 404936 1 Vial INH QID 018 2018 Inactive 60/box. Please do not fill early. Please do not auto refill. Prozac 10 mg capsule RxNorm: 196644 1 Capsule(s) PO daily 018 2017 Inactive buspirone 7.5 mg tablet RxNorm: 157320 1 Tablet(s) PO BID 018 2018 Inactive gabapentin 300 mg capsule RxNorm: 740976 1 Capsule(s) PO TID as needed 018 2018 Inactive hydrochlorothiazide 12.5 mg tablet RxNorm: 733809 1 Tablet(s) PO QAM 018 2018 Inactive ranitidine 150 mg tablet RxNorm: 775190 1 Tablet(s) PO BID 018 2018 Inactive Macrobid 100 mg capsule RxNorm: 503115 1 Capsule(s) PO Q12H 018 2017 Inactive Singulair 10 mg tablet RxNorm: 543096 1 Tablet(s) PO daily 018 2018 Inactive Ventolin HFA 90 mcg/actuation aerosol inhaler RxNorm: 5566683 2 Puff(s) INH QID 018 2018 Inactive Singulair 10 mg tablet RxNorm: 145582 1 Tablet(s) PO daily 018 2017 Inactive buspirone 7.5 mg tablet RxNorm: 789797 1 Tablet(s) PO BID 018 2017 Inactive Prozac 10 mg capsule RxNorm: 883703 1 Capsule(s) PO daily 018 2017 Inactive diclofenac sodium 75 mg tablet,delayed release RxNorm: 624061 1 Tablet(s) PO BID 018 2017 Inactive lisinopril 2.5 mg tablet RxNorm: 031701 1 Tablet(s) PO daily 018 2017 Inactive Neilmed Pediatric Sinus Rinse Refill packet RxNorm: 1 Unit Dose NASAL PRN 018 2021 Inactive metoprolol succinate ER 50 mg tablet,extended release 24 hr RxNorm: 315717 1 Tablet(s) PO daily 018 2017 Inactive levothyroxine 50 mcg tablet RxNorm: 337508 1 Tablet(s) PO daily 018 2017 Inactive TRUEplus Lancets 30 gauge RxNorm: 1 Lancets Miscellaneous QAM 018 2017 Inactive 100/box Ventolin HFA 90 mcg/actuation aerosol inhaler RxNorm: 866651 2 Puff(s) INH QID 018 2017 Inactive Aleve 220 mg capsule RxNorm: 8472953 1 Capsule(s) PO BID 018 2018 Inactive ranitidine 150 mg tablet RxNorm: 655189 1 Tablet(s) PO BID 018 2017 Inactive gabapentin 300 mg capsule RxNorm: 305351 1 Capsule(s) PO TID as needed 018 2017 Inactive atorvastatin 20 mg tablet RxNorm: 541633 1 Tablet(s) PO QHS 018 2017 Inactive True Metrix Glucose Test Strip RxNorm: 1 Test Strips Miscellaneous QAM 018 2017 Inactive 50/container Calcium 600-D3 Plus 600 mg calcium-800 unit-50 mg tablet RxNorm: 1 Tablet(s) PO daily take an additonal tablet for itching. 018 2017 Inactive hydrochlorothiazide 12.5 mg tablet RxNorm: 959336 1 Tablet(s) PO QAM 018 2017 Inactive Flintstones Complete (iron) 18 mg iron chewable tablet RxNorm: 1 Tablet(s) PO daily 018 2017 Inactive True Metrix Glucose Meter RxNorm: miscellaneous 019 2018 Inactive sertraline 50 mg tablet RxNorm: 203774 1 Tablet(s) PO daily 020 2019 Inactive loperamide 2 mg tablet RxNorm: 397221 oral 019 2018 Inactive d-mannose oral powder RxNorm: PO 018 2021 Inactive Symbicort 160 mcg-4.5 mcg/actuation HFA aerosol inhaler RxNorm: 5713922 2 Puff(s) INH BID 019 2018 Inactive Medication Administered No Medication Administered data Procedures Procedure Codes Date Geyser Fany Assessment CPT-4: DSWA 04/02 Patient Health [...] CPT-4: VACP Fall Risk Assessment SNOMED CT: 49493350 4 CPT-4: DFRA 01/13/2021 Geyser Fany Assessment CPT-4: DSWA 12/01 Urinalysis, dip stick CPT-4: 22666 09/24/2020 Patient Health Questionnaire CPT-4: DPHQ Electrocardiogram CPT-4: 48099 05/14/2020 Tobacco Assessment/Screening CPT-4: TCA Fall Risk Assessment SNOMED CT: 76128922 4 CPT-4: DFRA 01/01/2020 Functional Assessment CPT-4: DFA 01/01/2020 Geyser Fany Assessment CPT-4: DSWA 11/04 Patient Health Questionnaire CPT-4: DPHQ Geyser Fany Assessment CPT-4: DSWA 10/03 Hypertension CPT-4: HTN 10/17/2019 Fall Risk Assessment SNOMED CT: 70803646 4 CPT-4: DFRA 09/19/2019 Functional Assessment CPT-4: DFA 09/19/2019 Urinalysis, dip stick CPT-4: 54110 06/21/2019 Tobacco Assessment/Screening CPT-4: TCA Patient Health Questionnaire CPT-4: DPHQ AHA/REBECCA Classification Assessment CPT-4: DAHA 04/25/2019 Controlled Substance Report CPT-4: CTRSU 04/03 Urinalysis, dip stick CPT-4: 65208 03/28/2019 Urinalysis, dip stick CPT-4: 70853 03/28/2019 H1B-Mnbrulzflrbugcw CPT-4: 30843 Unknown Q3C-Dxhocqzurdnwefk CPT-4: 60360 Unknown I0Q-Adkeygdqiavnhcf CPT-4: 87582 Unknown U8O-Xcreyzvfkbghmip CPT-4: 96034 Unknown P3L-Bwxedpuygmqmbmf CPT-4: 27114 Unknown E3C-Fbtznotlpkebjzs CPT-4: 86284 Unknown N8Z-Dblgrqgkwysbaxo CPT-4: 23294 Unknown F4Q-Ywmdjfuevduyaps CPT-4: 28360 Unknown J5D-Ewdhlolzucaopcu CPT-4: 11264 Unknown Gynecology Referral SNOMED CT: 369862343 CPT-4: R14 Unknown Reason For Visit No Reason For Visit data Plan of Care Planned Activity Notes Codes Status Date Referral: Pending Gynecology Referral Information Referral Processed Referral: Pending Pulmonolog y Referral Information Referral Processed Referral: Pending Psychiatry Referral Information Referral Initiated Referral: Pending Respirator y Services Referral Information Referral Initiated Referral: Pending Ophthalmol ogy Referral Information Referral Initiated Referral: [facility] WPtel: [address] [place] [address] [place] Insurance Consultant placed a call out to the patient to notify her that it has been recommended that she be seen by 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 Patient agreed to be seen, does not have a provider of choice and no transportation issues. Insurance Consultant faxed referral and clinical notes to [facility] in [place], [place] near the patient's home. Patient to [...] seen and prefers a provider in the [place] or [place] area. Insurance Consultant placed a call out to everyone listed in the area and the only location that was able to accept the patient's insurance was [address] [id number] and spoke with Maylin. Maylin asked that the patient's referral, face sheet and visit notes be faxed to . Insurance Consultant faxed over requested documents. Patient appointment confirmation letter generated and mailed to her home address. Patient to call to schedule an appointment. [facility]: [address] [place] [address] Patient notified that it has been advised that she be seen by Neurology. Patient agreed to be seen and prefers to be seen by a provider in the [place], [place] area. Patient denies any concerns with transportation, and prefers to schedule her own appointment. Insurance Consultant placed a [facility] and spoke with Neeraj P: who confirmed that their office is able to accept new patients and the patient's insurance. After confirming the providers fax number, fiction and nonfiction writer prose faxed over the patient's referral, and most [...]
--- OUTSIDE RECORDS SUMMARY | 2022-05-14 20:00 | XMS_ITS | CCD ---
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 Rides Supervisor Name Role Phone Palomo KING, Anna Primary Care Provider Unav ailable Unavailable Chronic Care Management Unavaila ble Summary Purpose DataExchange Insurance Providers Payer name Policy type / Coverage type Covered republican ID Effective Begin Date Effective End Date SUKI MAYO [id number] Unknown Unknown Family history Mother Diagnosis Age [...] Unknown Disability 05/31/[address]: 071607622 Has never s moked or chewed tobacco 05/31/[address]: 877886285 Never drinks alco hol 05/31/2018 Has the patient ever used illegal drugs? Unknown Has never used illegal drugs 05/31/2018 DNR Order/ Advanced Directive Unknown Full Code 05/31/2018 Allergies, Adverse Reactions, Alerts Substance Reaction Codes Entered Date Inactivated Date Status OxyContin itch, RxNorm: 597889 01/13/2021 No Inactive Da te Active *No [...] ICD-10: E78. 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 ICD-10: Z79.899 ICD-9: V58.69 04/25/2019 Inactive Type 2 diabetes mellitus wit hout complications ICD-10: E11.9 ICD-9: 250.00 10/03/2018 Inactive Wheezing ICD-10: R06.2 ICD-9: 786.07 08/08/2018 Inactive Abnormal urine finding ICD-10: R82.90 ICD-9: 791.9 09/24/2020 Resolved Abrasion of toe ICD-10: S90.416A ICD-9: 917.0 02/14/2020 Resolved [place] eye ICD-10: H10.029 ICD-9: 372.03 12/29/2019 Resolved [...] Fill Instructions hydrochlorothiazide 25 mg tablet RxNorm: 488753 Take 1 Tablet(s) Oral every day 2021 Inactive Ozempic 1 mg/dose (4 mg/3 mL) subcutaneous pen injector RxNorm: 2082545 Take 1 Unit Dose Subcutaneous QWeek 022 2021 Inactive famotidine 20 mg tablet RxNorm: 698443 Take 1 Tablet(s) Oral every morning 2021 Inactive levothyroxine 50 mcg tablet RxNorm: 483525 Take 1 Tablet(s) Oral every day 2021 Inactive atorvastatin 20 mg tablet RxNorm: 306816 Take 1 Tablet(s) Oral every night at bedtime 2021 Inactive Cleocin T 1 % lotion RxNorm: 765190 Take 2 Gram(s) Topical every day 2021 Inactive Cleocin T 1 % lotion RxNorm: 715923 Take 2 Gram(s) Topical every day 022 2021 Inactive Ozempic 1 mg/dose (4 mg/3 mL) subcutaneous pen injector RxNorm: 8800636 Take 1 Unit Dose Subcutaneous QWeek 022 2021 Inactive Ozempic 0.25 mg or 0.5 mg (2 mg/1.5 mL) subcutaneous pen injector RxNorm: 0621032 INJECT 0.5 MGS SUBCUTANEOUSLY EVERY WEEK 2021 Inactive omeprazole 20 mg capsule,delayed release RxNorm: 490968 Take 1 Capsule(s) Oral every evening 2021 Inactive levothyroxine 50 mcg tablet RxNorm: 420202 Take 1 Tablet(s) Oral every day 2021 Inactive atorvastatin 20 mg tablet RxNorm: 384909 Take 1 Tablet(s) Oral every night at bedtime 2021 Inactive This refill negates all other refills of this medication lisinopril 2.5 mg tablet RxNorm: 947388 Take 1 Tablet(s) Oral every day 2021 Inactive gabapentin 300 mg capsule RxNorm: 275064 Take 1 Capsule(s) Oral three times a day 2021 Inactive montelukast 10 mg tablet RxNorm: 127088 Take 1 Tablet(s) Oral every day 2021 Inactive cholecalciferol (vitamin D3) 50 mcg (2,000 unit) tablet RxNorm: 901510 Take 1 Tablet(s) Oral every day 022 2022 Inactive Myrbetriq 50 mg tablet,extended release RxNorm: 9332315 1 Tablet(s) Oral every day No Stop Date Active Ozempic 0.25 mg or 0.5 mg (2 mg/1.5 mL) subcutaneous pen injector RxNorm: 9783754 inject 0.5 milligrams subcutaneously every week 2021 Inactive Ozempic 0.25 mg or 0.5 mg (2 mg/1.5 mL) subcutaneous pen injector RxNorm: 7775237 Take 0.5 Capsule(s) Injection once a week 022 2021 Inactive omeprazole 20 mg capsule,delayed release RxNorm: 914841 Take 1 Capsule(s) Oral every evening 1 Inactive Ozempic 0.25 mg or 0.5 mg (2 mg/1.5 mL) subcutaneous pen injector RxNorm: 4012279 Take 0.25 Milligram(s) Subcutaneous once a week 2021 Inactive Easy Touch Alcohol Prep Pads RxNorm: 799731 USE DIRECTED EACH MORNING 021 2021 Inactive Probiotic 10 billion cell capsule RxNorm: 1800416 Take 1 Capsule(s) Oral every day 2021 Inactive levothyroxine 50 mcg tablet RxNorm: 037530 Take 1 Tablet(s) Oral every day 2020 Inactive Acid Apprentice Carpenter (famotidine) 20 mg tablet RxNorm: 999286 Take 1 Tablet(s) Oral every morning 2020 Inactive Heartburn Relief (famotidine) 10 mg tablet RxNorm: 479972 Take 1 Tablet(s) Oral QAM 2020 Inactive levothyroxine 50 mcg tablet RxNorm: 094058 Take 1 Tablet(s) Oral QD 2020 Inactive Singulair 10 mg tablet RxNorm: 033347 TAKE (1) TABLET BY MOUTH DAILY 2020 Inactive metformin 1,000 mg tablet RxNorm: 547819 1 Tablet(s) Oral two times a day 2021 Inactive lisinopril 2.5 mg tablet RxNorm: 528982 Take 1 Tablet(s) Oral every day 2020 Inactive hydrochlorothiazide 25 mg tablet RxNorm: 052878 Take 1 Tablet(s) Oral every day 021 2020 Inactive ondansetron 4 mg disintegrating tablet RxNorm: 574105 1 Tablet(s) Oral two times a day 021 2020 Inactive Sudafed 12 Hour 120 mg tablet,extended release RxNorm: 7352415 TAKE 1 TABLET BY MOUTH EVERY 12 HOURS NEEDED 2021 Inactive Heartburn Relief (famotidine) 10 mg tablet RxNorm: 677870 Take 1 Tablet(s) Oral every morning 021 2020 Inactive omeprazole 20 mg capsule,delayed release RxNorm: 292637 1 Capsule(s) Oral every evening 021 2020 Inactive sertraline 100 mg tablet RxNorm: 143032 2 Tablet(s) Oral every day 021 2020 Inactive levothyroxine 50 mcg tablet RxNorm: 940642 TAKE (1) TABLET BY MOUTH DAILY 021 2020 Inactive metformin 500 mg tablet RxNorm: 747887 1 Tablet(s) Oral two times a day take with 500mg to equal 1000mg 021 2020 Inactive gabapentin 300 mg capsule RxNorm: 492682 TAKE 1 CAPSULE BY MOUTH THREE TIMES A DAY 021 2020 Inactive lisinopril 2.5 mg tablet RxNorm: 911202 TAKE 1 TABLET BY MOUTH DAILY 021 2020 Inactive gabapentin 300 mg capsule RxNorm: 865658 TAKE 1 CAPSULE BY MOUTH THREE TIMES A DAY 021 2020 Inactive Singulair 10 mg tablet RxNorm: 287560 TAKE (1) TABLET BY MOUTH DAILY 021 2020 Inactive metformin 1,000 mg tablet RxNorm: 175457 1 Tablet(s) Oral two times a day 021 2020 Inactive atorvastatin 40 mg tablet RxNorm: 059609 1 Tablet(s) Oral every day 021 2020 Inactive omeprazole 20 mg capsule,delayed release RxNorm: 374732 1 Capsule(s) Oral every evening 021 2020 Inactive famotidine 10 mg tablet RxNorm: 433652 1 Tablet(s) Oral every morning 021 2020 Inactive Alcohol Prep Pads RxNorm: 563488 USE EACH MORNING 021 2020 Inactive omeprazole 20 mg capsule,delayed release RxNorm: 976967 1 Capsule(s) Oral two times a day 2021 Inactive omeprazole 20 mg capsule,delayed release RxNorm: 650371 TAKE 1 CAPSULE BY MOUTH EVERY DAY 2021 Inactive Macrobid 100 mg capsule RxNorm: 835417 1 Capsule(s) Oral every 12 hours with food 2020 Inactive omeprazole 20 mg capsule,delayed release RxNorm: 770711 1 Capsule(s) Oral two times a day 2021 Inactive metformin 1,000 mg tablet RxNorm: 323148 1 Tablet(s) Oral two times a day 2020 Inactive start on September 11, 2020 metformin 500 mg tablet RxNorm: 948724 1 Tablet(s) Oral two times a day take with 500mg to equal 1000mg 2019 Inactive gabapentin 300 mg capsule RxNorm: 148069 TAKE 1 CAPSULE BY MOUTH THREE TIMES DAILY 2020 Inactive cetirizine 10 mg tablet RxNorm: 0878498 TAKE (1) TABLET BY MOUTH DAILY 2020 Inactive metformin 500 mg tablet RxNorm: 994107 1 Tablet(s) Oral two times a day 2019 Inactive loperamide 2 mg tablet RxNorm: 093427 1 Tablet(s) Oral as needed take one tablet after each loose stool, maximum of 8 tablets in 24 hours 2021 Inactive Sudafed 12 Hour 120 mg tablet,extended release RxNorm: 1041310 TAKE 1 TABLET BY MOUTH EVERY 12 HOURS NEEDED 2019 Inactive hydrochlorothiazide 25 mg tablet RxNorm: 759934 TAKE (1) TABLET BY MOUTH EVERY DAY 2019 Inactive omeprazole 20 mg capsule,delayed release RxNorm: 188961 TAKE 1 CAPSULE BY MOUTH EVERY DAY 2020 Inactive metformin 500 mg tablet RxNorm: 820823 1 Tablet(s) Oral every day 2019 Inactive True Metrix Glucose Test Strip RxNorm: 1 Test Strips Miscellaneous two times a day as needed No Stop Date Active metformin 500 mg tablet RxNorm: 740226 1 Tablet(s) Oral every day 020 2019 Inactive diclofenac sodium 75 mg tablet,delayed release RxNorm: 525012 1 Tablet(s) PO BID 2021 Inactive This refill negates all other refills of this medication Sudafed 12 Hour 120 mg tablet,extended release RxNorm: 4247723 TAKE 1 TABLET BY MOUTH EVERY 12 HOURS NEEDED 020 2019 Inactive True Metrix Glucose Test Strip RxNorm: 1 Test Strips Miscellaneous every morning 020 2019 Inactive 100/container True Metrix Glucose Test Strip RxNorm: 1 Test Strips Miscellaneous QAM 020 2019 Inactive 100/container loperamide 2 mg tablet RxNorm: 642592 1 Tablet(s) Oral as needed take one tablet after each loose stool, maximum of 8 tablets in 24 hours 020 2019 Inactive cetirizine 10 mg tablet RxNorm: 2370744 1 Tablet(s) PO daily 2019 Inactive loperamide 2 mg tablet RxNorm: 076722 1 Tablet(s) Oral as needed take one tablet after each loose stool, maximum of 8 tablets in 24 hours 020 2019 Inactive quetiapine 100 mg tablet RxNorm: 153385 1 Tablet(s) Oral every night at bedtime 2019 Inactive levothyroxine 50 mcg tablet RxNorm: 578313 1 Tablet(s) PO daily 020 2020 Inactive gabapentin 300 mg capsule RxNorm: 351195 1 Capsule(s) PO TID 2019 Inactive levothyroxine 50 mcg tablet RxNorm: 936184 1 Tablet(s) PO daily 020 2019 Inactive lisinopril 2.5 mg tablet RxNorm: 921640 1 Tablet(s) PO daily 2020 Inactive gabapentin 300 mg capsule RxNorm: 653242 1 Capsule(s) PO TID 2019 Inactive cetirizine 10 mg tablet RxNorm: 1625652 1 Tablet(s) PO daily 2019 Inactive Singulair 10 mg tablet RxNorm: 076230 1 Tablet(s) PO daily 2020 Inactive gentamicin 0.3 % eye drops RxNorm: 794506 1 Drop(s) ophthalmic (eye) four times a day 2019 Inactive gentamicin 0.3 % eye drops RxNorm: 521736 1 Drop(s) ophthalmic (eye) four times a day 2019 Inactive gentamicin 0.3 % eye drops RxNorm: 600938 1 Drop(s) ophthalmic (eye) four times a day 2019 Inactive hydrochlorothiazide 25 mg tablet RxNorm: 397383 1 Tablet(s) Oral every day 2019 Inactive Sudafed 12 Hour 120 mg tablet,extended release RxNorm: 9877333 TAKE (1) TABLET BY MOUTH EVERY 12 HOURS NEEDED 2019 Inactive loperamide 2 mg tablet RxNorm: 236805 1 Tablet(s) Oral as needed take one tablet after each loose stool, maximum of 8 tablets in 24 hours 020 2019 Inactive loperamide 2 mg tablet RxNorm: 739265 1 Tablet(s) Oral as needed take one tablet after each loose stool, maximum of 8 tablets in 24 hours 020 2019 Inactive atorvastatin 40 mg tablet RxNorm: 147789 1 Tablet(s) Oral every day 2020 Inactive quetiapine 100 mg tablet RxNorm: 837435 1 Tablet(s) Oral every night at bedtime 2019 Inactive sertraline 100 mg tablet RxNorm: 524874 1 Tablet(s) Oral 2019 Inactive omeprazole 20 mg capsule,delayed release RxNorm: 748001 1 Capsule(s) Oral every day 020 2019 Inactive amoxicillin 250 mg capsule RxNorm: 627453 1 Capsule(s) Oral three times a day 020 2019 Inactive multivitamin with iron-mineral tablet RxNorm: 1 Tablet(s) Oral every day 020 2021 Inactive cetirizine 10 mg tablet RxNorm: 9257862 1 Tablet(s) PO daily 2019 Inactive This refill negates all other refills of this medication. Please do not auto refill Singulair 10 mg tablet RxNorm: 636126 1 Tablet(s) PO daily 2019 Inactive This refill negates all other refills of this medication gabapentin 300 mg capsule RxNorm: 579279 1 Capsule(s) PO TID 2019 Inactive lisinopril 2.5 mg tablet RxNorm: 114931 1 Tablet(s) PO daily 2019 Inactive levothyroxine 50 mcg tablet RxNorm: 196297 1 Tablet(s) PO daily 2019 Inactive This refill negates all other refills of this medication hydrochlorothiazide 25 mg tablet RxNorm: 761068 1 Tablet(s) Oral every day 2019 Inactive fenugreek seed extract 500 mg capsule RxNorm: 1 Capsule(s) Oral three times a day 020 2021 Inactive Alcohol Prep Pads RxNorm: 163086 1 Patch TOP QAM 020 2020 Inactive loperamide 2 mg tablet RxNorm: 301515 1 Tablet(s) Oral as needed take one tablet after each loose stool not to exceed 8 tablets a day 2018 Inactive Calcium 600-D3 Plus (mag-zinc) 600 mg calcium-800 unit-50 mg tablet RxNorm: 1 Tablet(s) PO daily take an additonal tablet for itching. 12/212021 Inactive This refill negates all other refills of this medication TRUEplus Lancets 30 gauge RxNorm: 1 Lancets Miscellaneous QAM 019 2019 Inactive 100/box fenugreek seed extract 500 mg capsule RxNorm: 1 Capsule(s) Oral three times a day 2019 Inactive hydrochlorothiazide 25 mg tablet RxNorm: 533607 1 Tablet(s) Oral every day 2019 Inactive Sudafed 12 Hour 120 mg tablet,extended release RxNorm: 2083914 1 Tablet(s) Oral every 12 hours as needed 2018 Inactive omeprazole 20 mg capsule,delayed release RxNorm: 413879 1 Capsule(s) Oral every day 019 2019 Inactive Sudafed 12 Hour 120 mg tablet,extended release RxNorm: 0225103 1 Tablet(s) Oral every 12 hours as needed 2018 Inactive pantoprazole 40 mg tablet,delayed release RxNorm: 231399 1 Tablet(s) Oral every day 2018 Inactive discontinue any other H2Blkr. and PPI albuterol sulfate 2.5 mg/3 mL (0.083 %) solution for nebulization RxNorm: 677591 1 Vial Inhalation every four hours as needed as needed for dyspnea 2019 Inactive 60/box. This refill negates all other refills of this medication. Please do not fill early. Please do not auto refill. Symbicort 160 mcg-4.5 mcg/actuation HFA aerosol inhaler RxNorm: 2912515 2 Puff(s) INH BID No Stop Date Active Alcohol Prep Pads RxNorm: 188710 1 Patch TOP QAM 2019 Inactive Ventolin HFA 90 mcg/actuation aerosol inhaler RxNorm: 686050 2 Puff(s) INH QID 019 2019 Inactive Please do not fill early. Please do not auto refill. This refill negates all other refills of this medication True Metrix Glucose Test Strip RxNorm: 1 Test Strips Miscellaneous QAM 019 2019 Inactive 100/container atorvastatin 40 mg tablet RxNorm: 804996 1 Tablet(s) Oral every day 019 2019 Inactive buspirone 7.5 mg tablet RxNorm: 881519 1 Tablet(s) PO BID 019 2020 Inactive This refill negates all other refills of this medication hydrochlorothiazide 12.5 mg tablet RxNorm: 339865 1 Tablet(s) PO QAM 019 2019 Inactive levmetamfetamine 50 mg nasal inhaler RxNorm: 1 Unit(s) NASAL Q3-4H Do not use more than every 3 hours or 8 times/24hours 019 2021 Inactive Please do not auto refill. This refill negates all other refills of this medication Ventolin HFA 90 mcg/actuation aerosol inhaler RxNorm: 765177 2 Puff(s) INH QID 2018 Inactive Please do not fill early. Please do not auto refill. This refill negates all other refills of this medication Singulair 10 mg tablet RxNorm: 828051 1 Tablet(s) PO daily 019 2019 Inactive This refill negates all other refills of this medication cetirizine 10 mg tablet RxNorm: 2974214 1 Tablet(s) PO daily 019 2019 Inactive This refill negates all other refills of this medication. Please do not auto refill levothyroxine 50 mcg tablet RxNorm: 202371 1 Tablet(s) PO daily 019 2019 Inactive This refill negates all other refills of this medication diclofenac sodium 75 mg tablet,delayed release RxNorm: 009558 1 Tablet(s) PO BID 019 2019 Inactive This refill negates all other refills of this medication ranitidine 150 mg tablet RxNorm: 600737 1 Tablet(s) PO BID 019 2018 Inactive This refill negates all other refills of this medication Calcium 600-D3 Plus (mag-zinc) 600 mg calcium-800 unit-50 mg tablet RxNorm: 1 Tablet(s) PO daily take an additonal tablet for itching. 019 2018 Inactive This refill negates all other refills of this medication albuterol sulfate 2.5 mg/3 mL (0.083 %) solution for nebulization RxNorm: 431547 1 Vial INH QID 2018 Inactive 60/box. This refill negates all other refills of this medication. Please do not fill early. Please do not auto refill. lisinopril 2.5 mg tablet RxNorm: 356326 1 Tablet(s) PO daily 019 2019 Inactive gabapentin 300 mg capsule RxNorm: 481991 1 Capsule(s) PO TID 019 2019 Inactive atorvastatin 20 mg tablet RxNorm: 763781 1 Tablet(s) PO QHS 2018 Inactive This refill negates all other refills of this medication TRUEplus Lancets 30 gauge RxNorm: 1 Lancets Miscellaneous QAM 019 2018 Inactive 100/box gabapentin 300 mg capsule RxNorm: 875834 1 Capsule(s) PO TID 019 2018 Inactive Flintstones Complete (iron) 18 mg iron chewable tablet RxNorm: 1 Tablet(s) PO daily 019 2021 Inactive This refill negates all other refills of this medication gabapentin 300 mg capsule RxNorm: 505522 1 Capsule(s) PO TID as needed 019 2018 Inactive True Metrix Glucose Test Strip RxNorm: 1 Test Strips Miscellaneous QAM 019 2018 Inactive 100/container Alcohol Prep Pads RxNorm: 054313 1 Patch TOP QAM 019 2018 Inactive TRUEplus Lancets 30 gauge RxNorm: 1 Lancets Miscellaneous QAM 019 2018 Inactive 100/box lisinopril 2.5 mg tablet RxNorm: 158863 1 Tablet(s) PO daily 019 2018 Inactive ranitidine 150 mg tablet RxNorm: 154237 1 Tablet(s) PO BID 019 2018 Inactive This refill negates all other refills of this medication albuterol sulfate 2.5 mg/3 mL (0.083 %) solution for nebulization RxNorm: 208948 1 Vial INH QID 019 2018 Inactive [...] this medication gabapentin 300 mg capsule RxNorm: 608769 1 Capsule(s) PO TID as needed 019 2018 Inactive atorvastatin 20 mg tablet RxNorm: 343795 1 Tablet(s) PO QHS 019 2018 Inactive This refill negates all other refills of this medication trazodone 50 mg tablet RxNorm: 245461 1 Tablet(s) PO QHS 019 2018 Inactive This refill negates all other refills of this medication Ventolin HFA 90 mcg/actuation aerosol inhaler RxNorm: 316534 2 Puff(s) INH QID 019 2018 Inactive Please do not fill early. Please do not auto refill. This refill negates all other refills of this medication Calcium 600-D3 Plus 600 mg calcium-800 unit-50 mg tablet RxNorm: 1 Tablet(s) PO daily take an additonal tablet for itching. 019 2018 Inactive This refill negates all other refills of this medication Singulair 10 mg tablet RxNorm: 010931 1 Tablet(s) PO daily 019 2018 Inactive This refill negates all other refills of this medication buspirone 7.5 mg tablet RxNorm: 645792 1 Tablet(s) PO BID 019 2018 Inactive This refill negates all other refills of this medication diclofenac sodium 75 mg tablet,delayed release RxNorm: 717607 1 Tablet(s) PO BID 019 2018 Inactive This refill negates all other refills of this medication hydrochlorothiazide 12.5 mg tablet RxNorm: 777525 1 Tablet(s) PO QAM 019 2018 Inactive metoprolol succinate ER 50 mg tablet,extended release 24 hr RxNorm: 041114 1 Tablet(s) PO daily 019 2018 Inactive This refill negates all other refills of this medication levothyroxine 50 mcg tablet RxNorm: 897226 1 Tablet(s) PO daily 019 2018 Inactive This refill negates all other refills of this medication cetirizine 10 mg tablet RxNorm: 2857671 1 Tablet(s) PO daily 019 2018 Inactive This refill negates all other refills of this medication. Please do not auto refill Flintstones Complete (iron) 18 mg iron chewable tablet RxNorm: 1 Tablet(s) PO daily 019 2018 Inactive This refill negates all other refills of this medication buspirone 7.5 mg tablet RxNorm: 818333 1 Tablet(s) PO BID 019 2018 Inactive cetirizine 10 mg tablet RxNorm: 0389908 1 Tablet(s) PO daily 2018 Inactive Guaiasorb DM 10 mg-100 mg/5 mL oral liquid RxNorm: 922055 10 Milliliter(s) PO As needed every 4 hr 2018 Inactive Vicks Vaporub 4.7 %-1.2 %-2.6 % topical ointment RxNorm: 7099741 1 Application TOP TID 018 2018 Inactive levmetamfetamine 50 mg nasal inhaler RxNorm: 1 Unit(s) NASAL Q3-4H 018 2017 Inactive sertraline 50 mg tablet RxNorm: 528026 1 Tablet(s) PO daily 018 2018 Inactive Please note dose trazodone 50 mg tablet RxNorm: 264839 1 Tablet(s) PO QHS 018 2018 Inactive sertraline 50 mg tablet RxNorm: 373379 1 Tablet(s) PO daily 018 2017 Inactive amoxicillin 500 mg tablet RxNorm: 298535 1 Tablet(s) PO Q12H 018 2017 Inactive albuterol sulfate 2.5 mg/3 mL (0.083 %) solution for nebulization RxNorm: 755511 1 Vial INH QID 018 2018 Inactive 60/box. Please do not fill early. Please do not auto refill. Prozac 10 mg capsule RxNorm: 509283 1 Capsule(s) PO daily 018 2017 Inactive buspirone 7.5 mg tablet RxNorm: 089507 1 Tablet(s) PO BID 018 2018 Inactive gabapentin 300 mg capsule RxNorm: 072684 1 Capsule(s) PO TID as needed 2018 Inactive hydrochlorothiazide 12.5 mg tablet RxNorm: 447149 1 Tablet(s) PO QAM 2018 Inactive ranitidine 150 mg tablet RxNorm: 791831 1 Tablet(s) PO BID 018 2018 Inactive Macrobid 100 mg capsule RxNorm: 921302 1 Capsule(s) PO Q12H 018 2017 Inactive Singulair 10 mg tablet RxNorm: 863369 1 Tablet(s) PO daily 018 2018 Inactive Ventolin HFA 90 mcg/actuation aerosol inhaler RxNorm: 2593850 2 Puff(s) INH QID 018 2018 Inactive Singulair 10 mg tablet RxNorm: 088325 1 Tablet(s) PO daily 018 2017 Inactive buspirone 7.5 mg tablet RxNorm: 406760 1 Tablet(s) PO BID 018 2017 Inactive Prozac 10 mg capsule RxNorm: 953147 1 Capsule(s) PO daily 018 2017 Inactive diclofenac sodium 75 mg tablet,delayed release RxNorm: 405322 1 Tablet(s) PO BID 018 2017 Inactive lisinopril 2.5 mg tablet RxNorm: 511101 1 Tablet(s) PO daily 018 2017 Inactive Neilmed Pediatric Sinus Rinse Refill packet RxNorm: 1 Unit Dose NASAL PRN 018 2021 Inactive metoprolol succinate ER 50 mg tablet,extended release 24 hr RxNorm: 460289 1 Tablet(s) PO daily 018 2017 Inactive levothyroxine 50 mcg tablet RxNorm: 630706 1 Tablet(s) PO daily 018 2017 Inactive TRUEplus Lancets 30 gauge RxNorm: 1 Lancets Miscellaneous QAM 018 2017 Inactive 100/box Ventolin HFA 90 mcg/actuation aerosol inhaler RxNorm: 622623 2 Puff(s) INH QID 018 2017 Inactive Aleve 220 mg capsule RxNorm: 9849986 1 Capsule(s) PO BID 018 2018 Inactive ranitidine 150 mg tablet RxNorm: 724970 1 Tablet(s) PO BID 018 2017 Inactive gabapentin 300 mg capsule RxNorm: 285210 1 Capsule(s) PO TID as needed 018 2017 Inactive atorvastatin 20 mg tablet RxNorm: 486832 1 Tablet(s) PO QHS 018 2017 Inactive True Metrix Glucose Test Strip RxNorm: 1 Test Strips Miscellaneous QAM 018 2017 Inactive 50/container Calcium 600-D3 Plus 600 mg calcium-800 unit-50 mg tablet RxNorm: 1 Tablet(s) PO daily take an additonal tablet for itching. 018 2017 Inactive hydrochlorothiazide 12.5 mg tablet RxNorm: 744672 1 Tablet(s) PO QAM 018 2017 Inactive Flintstones Complete (iron) 18 mg iron chewable tablet RxNorm: 1 Tablet(s) PO daily 018 2017 Inactive True Metrix Glucose Meter RxNorm: miscellaneous 019 2018 Inactive sertraline 50 mg tablet RxNorm: 514254 1 Tablet(s) PO daily 020 2019 Inactive loperamide 2 mg tablet RxNorm: 901954 oral 019 2018 Inactive d-mannose oral powder RxNorm: PO 018 2021 Inactive Symbicort 160 mcg-4.5 mcg/actuation HFA aerosol inhaler RxNorm: 3510735 2 Puff(s) INH BID 019 2018 Inactive Medication Administered No Medication Administered data Procedures Procedure Codes Date [place] Assessment CPT-4: DSWA 04/02 Patient Health [...] CPT-4: VACP Fall Risk Assessment SNOMED CT: 05370684 4 CPT-4: DFRA 01/13/2021 [place] Assessment CPT-4: DSWA 12/01 Urinalysis, dip stick CPT-4: 80223 09/24/2020 Patient Health Questionnaire CPT-4: DPHQ Electrocardiogram CPT-4: 63917 05/14/2020 Tobacco Assessment/Screening CPT-4: TCA Fall Risk Assessment SNOMED CT: 88507488 4 CPT-4: DFRA 01/01/2020 Functional Assessment CPT-4: DFA 01/01/2020 [place] Assessment CPT-4: DSWA 11/04 Patient Health Questionnaire CPT-4: DPHQ [place] Assessment CPT-4: DSWA 10/03 Hypertension CPT-4: HTN 10/17/2019 Fall Risk Assessment SNOMED CT: 27945148 4 CPT-4: DFRA 09/19/2019 Functional Assessment CPT-4: DFA 09/19/2019 Urinalysis, dip stick CPT-4: 96785 06/21/2019 Tobacco Assessment/Screening CPT-4: TCA Patient Health Questionnaire CPT-4: DPHQ AHA/REBECCA Classification Assessment CPT-4: DAHA 04/25/2019 Controlled Substance Report CPT-4: CTRSU 04/03 Urinalysis, dip stick CPT-4: 84260 03/28/2019 Urinalysis, dip stick CPT-4: 96944 03/28/2019 Z1Y-Psdwzcpangdswqe CPT-4: 33922 Unknown M4M-Lqsivnnwstmkksz CPT-4: 31680 Unknown R0U-Gkuxmvblgzvveak CPT-4: 29135 Unknown N9G-Heoftyvzjmjbmhv CPT-4: 92626 Unknown B8M-Gkzxchienzstvuk CPT-4: 61884 Unknown A6M-Mhwcqcvtkotrtko CPT-4: 02432 Unknown L1G-Aciajykvxnhztpb CPT-4: 22796 Unknown X1P-Msxryrsiztgspkk CPT-4: 72408 Unknown D1R-Uogkxyxmxxhlljb CPT-4: 36130 Unknown Gynecology Referral SNOMED CT: 907222435 CPT-4: R14 Unknown Reason For Visit No Reason For Visit data Plan of Care Planned Activity Notes Codes Status Date Referral: Pending Gynecology Referral Information Referral Processed Referral: Pending Pulmonolog y Referral Information Referral Processed Referral: Pending Psychiatry Referral Information Referral Initiated Referral: Pending Respirator y Services Referral Information Referral Initiated Referral: Pending Ophthalmol ogy Referral Information Referral Initiated Referral: [facility] WPtel: [address] [facility] [address] Fork Lift Technician placed a call out to the patient to notify her that it has been recommended that she be seen by 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 Patient agreed to be seen, does not have a provider of choice and no transportation issues. Fork Lift Technician faxed referral and clinical notes to [facility] in [place], [place] near the patient's home. Patient to [...] seen and prefers a provider in the [place] or [place] area. Fork Lift Technician placed a call out to everyone listed in the area and the only location that was able to accept the patient's insurance was [address] [id number] and spoke with Maylin. Maylin asked that the patient's referral, face sheet and visit notes be faxed to . Fork Lift Technician faxed over requested documents. Patient appointment confirmation letter generated and mailed to her home address. Patient to call to schedule an appointment. Processed Referral: [facility] WPtel: [address] [facility] [address] [place], [place] [id number] Patient notified that it has been advised that she be seen by Neurology. Patient agreed to be seen and prefers to be seen by a provider in the [place], [place] area. Patient denies any concerns with transportation, and prefers to schedule her own appointment. Fork Lift Technician placed a call out to [facility] and spoke with Neeraj P: who confirmed that their office is able to accept new patients and the patient's insurance. After confirming the providers fax number, lyric writer faxed over the patient's referral, and [...]
--- OUTSIDE RECORDS SUMMARY | 2022-07-30 20:00 | XMS_ITS | CCD ---
Author Name Milena BOWMAN, Dr Persaud Address [address] [place] [address] Phone Organization [facility] Phone Care Team Providers Care Cognos Developer Name Role Phone Palomo KING, Anna Primary Care Provider Unav ailable Unavailable Chronic Care Management Unavaila ble Summary Purpose DataExchange Insurance Providers Payer name Policy type / Coverage type Covered constitution party ID Effective Begin Date Effective End Date [facility] [id number] Unknown Unknown Family history Mother Diagnosis Age [...] Unknown Disability 05/31/[address]: 078222528 Has never s moked or chewed tobacco 05/31/[address]: 229655141 Never drinks alco hol 05/31/2018 Has the patient ever used illegal drugs? Unknown Has never used illegal drugs 05/31/2018 DNR Order/ Advanced Directive Unknown Full Code 05/31/2018 Allergies, Adverse Reactions, Alerts Substance Reaction Codes Entered Date Inactivated Date Status OxyContin itch, RxNorm: 177256 01/13/2021 No Inactive Da te Active *No known food allergies Unknown 09/06/2018 No I nactive Date Active Methylprednisolone hives RxNorm: 6902 09/06/2018 No Inac tive Date Active Problems Condition Codes Effective Dates Condition St atus Ankle sprain ICD-10: S93.409A ICD-9: 845.00 07/31/2022 Active Adult BMI 50.0-59.9 kg/sq m ICD-10: Z68. 43 ICD-9: V85.43 05/30/2018 Active Hypertensive heart disease ICD-10: I11.9 ICD-9: 402.90 12/03/2021 Active Hypothyroid ICD-10: E03.9 ICD-9: 244.9 09/05/2018 Active Influenza vaccine refused ICD-10: Z28.21 ICD-9: V64.06 06/23/2022 Active Major depression, recurrent ICD-10: F33. 9 ICD-9: 296.30 06/23/2022 Active Obstructive sleep apnea (chio lt) (pediatric) ICD-10: G47.33 ICD-9: 327.23 06/21/2019 Active Type 2 diabetes mellitus wit h peripheral neuropathy ICD-10: E11.42 ICD-9: 250.60 11/28/2019 Active Abscess ICD-10: L02.91 ICD-9: 682.9 04/21/2022 Active Adjustment disorder with mix ed anxiety and depressed mood ICD-10: F43.23 ICD-9: 309.28 09/05/2018 Active Hyperlipidemia, mixed ICD-10: E78.2 ICD-9: 272.2 12/03/2021 Active Hypertension ICD-10: I10 ICD-9: 401.9 12/03/2021 Active (Z00.00-V70.9) Encounter for general adult medical examination without abnormal findings ICD-10: Z00.00 ICD-9: V70.9 02/11/2022 Active Allergic rhinitis ICD-10: J30.9 ICD-9: 477.9 12/03/2021 Active Asthma ICD-10: J45.909 ICD-9: 493.90 08/08/2018 Active GERD (gastroesophageal reflu x disease) ICD-10: K21.9 ICD-9: 530.81 09/07/2019 Active Edema, unspecified ICD-10: R60.9 ICD-9: 782.3 07/11/2018 Active Vitamin D deficiency ICD-10: E55.9 ICD-9: [...] ICD-10: E78. 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 ICD-10: Z79.899 ICD-9: V58.69 04/25/2019 Inactive Type 2 diabetes mellitus wit hout complications ICD-10: E11.9 ICD-9: 250.00 10/03/2018 Inactive Wheezing ICD-10: R06.2 ICD-9: 786.07 08/08/2018 Inactive Abnormal urine finding ICD-10: R82.90 ICD-9: 791.9 09/24/2020 Resolved Abrasion of toe ICD-10: S90.416A ICD-9: 917.0 02/14/2020 Resolved [place] eye ICD-10: H10.029 ICD-9: 372.03 12/29/2019 Resolved Right wrist pain ICD-10: M25.531 ICD-9: 719.43 05/14/2020 Resolved Sinusitis ICD-10: J32.9 ICD-9: 473.9 11/07/2019 Resolved Superficial burn of multiple sites of right hand, subsequent encounter ICD-10: T23.191D ICD-9: V58.89 11/28/2020 Resolved Urinary tract infection ICD-10: N39.0 ICD-9: 599.0 10/01/2020 Resolved Polyneuropathy, unspecified ICD-10: G62. 9 ICD-9: 356.9 05/30/2018 Active Fecal incontinence ICD-10: R15.9 ICD-9: 787.60 12/15/2019 Active Mixed incontinence ICD-10: N39.46 ICD-9: 788.33 05/24/2019 Active Abnormal electrocardiogram [ ECG] [EKG] ICD-10: R94.31 ICD-9: 794.31 05/30/2018 Active Medications Medication Codes Instructions Start Date Stop Date Status Fill Instructions ibuprofen 800 mg tablet RxNorm: 365063 Take 1 Tablet(s) Oral Q8H as needed for pain take with food No Stop Date Active Ozempic 1 mg/dose (4 mg/3 mL) subcutaneous pen injector RxNorm: 5597194 Take 1 Unit Dose Subcutaneous QWeek Tuesday 022 2021 Inactive lisinopril 2.5 mg tablet RxNorm: 512949 Take 1 Tablet(s) Oral every day 022 2021 Inactive lisinopril 2.5 mg tablet RxNorm: 466624 Take 1 Tablet(s) Oral every day 2022 Inactive hydrochlorothiazide 25 mg tablet RxNorm: 703469 Take 1 Tablet(s) Oral every day /13/ 2022 Inactive Ozempic 1 mg/dose (4 mg/3 mL) subcutaneous pen injector RxNorm: 5846427 Take 1 Unit Dose Subcutaneous QWeek 022 2021 Inactive famotidine 20 mg tablet RxNorm: 849701 Take 1 Tablet(s) Oral every morning 2021 Inactive levothyroxine 50 mcg tablet RxNorm: 710200 Take 1 Tablet(s) Oral every day 022 2021 Inactive atorvastatin 20 mg tablet RxNorm: 326690 Take 1 Tablet(s) Oral every night at bedtime 2021 Inactive Cleocin T 1 % lotion RxNorm: 776787 Take 2 Gram(s) Topical every day 2021 Inactive Cleocin T 1 % lotion RxNorm: 462508 Take 2 Gram(s) Topical every day 022 2021 Inactive Ozempic 1 mg/dose (4 mg/3 mL) subcutaneous pen injector RxNorm: 9396790 Take 1 Unit Dose Subcutaneous QWeek 022 2021 Inactive Ozempic 0.25 mg or 0.5 mg (2 mg/1.5 mL) subcutaneous pen injector RxNorm: 2266164 INJECT 0.5 MGS SUBCUTANEOUSLY EVERY WEEK 2021 Inactive omeprazole 20 mg capsule,delayed release RxNorm: 904954 Take 1 Capsule(s) Oral every evening 2021 Inactive levothyroxine 50 mcg tablet RxNorm: 237640 Take 1 Tablet(s) Oral every day 022 2021 Inactive atorvastatin 20 mg tablet RxNorm: 705058 Take 1 Tablet(s) Oral every night at bedtime 022 2021 Inactive This refill negates all other refills of this medication lisinopril 2.5 mg tablet RxNorm: 971063 Take 1 Tablet(s) Oral every day 022 2021 Inactive gabapentin 300 mg capsule RxNorm: 411110 Take 1 Capsule(s) Oral three times a day 022 2021 Inactive montelukast 10 mg tablet RxNorm: 143259 Take 1 Tablet(s) Oral every day 022 2021 Inactive cholecalciferol (vitamin D3) 50 mcg (2,000 unit) tablet RxNorm: 633599 Take 1 Tablet(s) Oral every day 2022 Inactive Myrbetriq 50 mg tablet,extended release RxNorm: 7344785 1 Tablet(s) Oral every day No Stop Date Active Ozempic 0.25 mg or 0.5 mg (2 mg/1.5 mL) subcutaneous pen injector RxNorm: 4204177 inject 0.5 milligrams subcutaneously every week 2021 Inactive Ozempic 0.25 mg or 0.5 mg (2 mg/1.5 mL) subcutaneous pen injector RxNorm: 2325426 Take 0.5 Capsule(s) Injection once a week 2021 Inactive omeprazole 20 mg capsule,delayed release RxNorm: 983253 Take 1 Capsule(s) Oral every evening 2020 Inactive Ozempic 0.25 mg or 0.5 mg (2 mg/1.5 mL) subcutaneous pen injector RxNorm: 6346210 Take 0.25 Milligram(s) Subcutaneous once a week 2021 Inactive Easy Touch Alcohol Prep Pads RxNorm: 386037 USE DIRECTED EACH MORNING 2021 Inactive Probiotic 10 billion cell capsule RxNorm: 8324439 Take 1 Capsule(s) Oral every day 2021 Inactive levothyroxine 50 mcg tablet RxNorm: 024119 Take 1 Tablet(s) Oral every day 2020 Inactive Acid Proposal Manager Writer (famotidine) 20 mg tablet RxNorm: 960554 Take 1 Tablet(s) Oral every morning 2020 Inactive Heartburn Relief (famotidine) 10 mg tablet RxNorm: 607115 Take 1 Tablet(s) Oral QAM 021 2020 Inactive levothyroxine 50 mcg tablet RxNorm: 065966 Take 1 Tablet(s) Oral QD 021 2020 Inactive Singulair 10 mg tablet RxNorm: 489080 TAKE (1) TABLET BY MOUTH DAILY 2020 Inactive metformin 1,000 mg tablet RxNorm: 892327 1 Tablet(s) Oral two times a day 2021 Inactive lisinopril 2.5 mg tablet RxNorm: 683790 Take 1 Tablet(s) Oral every day 2020 Inactive hydrochlorothiazide 25 mg tablet RxNorm: 670824 Take 1 Tablet(s) Oral every day 2020 Inactive ondansetron 4 mg disintegrating tablet RxNorm: 272625 1 Tablet(s) Oral two times a day 2020 Inactive Sudafed 12 Hour 120 mg tablet,extended release RxNorm: 9820407 TAKE 1 TABLET BY MOUTH EVERY 12 HOURS NEEDED 2021 Inactive Heartburn Relief (famotidine) 10 mg tablet RxNorm: 743833 Take 1 Tablet(s) Oral every morning 021 2020 Inactive omeprazole 20 mg capsule,delayed release RxNorm: 074383 1 Capsule(s) Oral every evening 021 2020 Inactive sertraline 100 mg tablet RxNorm: 506354 2 Tablet(s) Oral every day 021 2020 Inactive levothyroxine 50 mcg tablet RxNorm: 612556 TAKE (1) TABLET BY MOUTH DAILY 021 2020 Inactive metformin 500 mg tablet RxNorm: 057729 1 Tablet(s) Oral two times a day take with 500mg to equal 1000mg 021 2020 Inactive gabapentin 300 mg capsule RxNorm: 364159 TAKE 1 CAPSULE BY MOUTH THREE TIMES A DAY 04/132020 Inactive lisinopril 2.5 mg tablet RxNorm: 269204 TAKE 1 TABLET BY MOUTH DAILY 021 2020 Inactive gabapentin 300 mg capsule RxNorm: 846797 TAKE 1 CAPSULE BY MOUTH THREE TIMES A DAY 021 2020 Inactive Singulair 10 mg tablet RxNorm: 446814 TAKE (1) TABLET BY MOUTH DAILY 2020 Inactive metformin 1,000 mg tablet RxNorm: 059810 1 Tablet(s) Oral two times a day 2020 Inactive atorvastatin 40 mg tablet RxNorm: 748757 1 Tablet(s) Oral every day 2020 Inactive omeprazole 20 mg capsule,delayed release RxNorm: 950024 1 Capsule(s) Oral every evening 021 2020 Inactive famotidine 10 mg tablet RxNorm: 595077 1 Tablet(s) Oral every morning 021 2020 Inactive Alcohol Prep Pads RxNorm: 624460 USE EACH MORNING 021 2020 Inactive omeprazole 20 mg capsule,delayed release RxNorm: 220084 1 Capsule(s) Oral two times a day 2021 Inactive omeprazole 20 mg capsule,delayed release RxNorm: 459945 TAKE 1 CAPSULE BY MOUTH EVERY DAY 2021 Inactive Macrobid 100 mg capsule RxNorm: 110973 1 Capsule(s) Oral every 12 hours with food 2020 Inactive omeprazole 20 mg capsule,delayed release RxNorm: 971253 1 Capsule(s) Oral two times a day 2021 Inactive metformin 1,000 mg tablet RxNorm: 178800 1 Tablet(s) Oral two times a day 2020 Inactive start on September 11, 2020 metformin 500 mg tablet RxNorm: 032270 1 Tablet(s) Oral two times a day take with 500mg to equal 1000mg 2019 Inactive gabapentin 300 mg capsule RxNorm: 396879 TAKE 1 CAPSULE BY MOUTH THREE TIMES DAILY 020 2020 Inactive cetirizine 10 mg tablet RxNorm: 4097145 TAKE (1) TABLET BY MOUTH DAILY 020 2020 Inactive metformin 500 mg tablet RxNorm: 398750 1 Tablet(s) Oral two times a day 2019 Inactive loperamide 2 mg tablet RxNorm: 424403 1 Tablet(s) Oral as needed take one tablet after each loose stool, maximum of 8 tablets in 24 hours 2021 Inactive Sudafed 12 Hour 120 mg tablet,extended release RxNorm: 9285099 TAKE 1 TABLET BY MOUTH EVERY 12 HOURS NEEDED 020 2019 Inactive hydrochlorothiazide 25 mg tablet RxNorm: 914115 TAKE (1) TABLET BY MOUTH EVERY DAY 020 2019 Inactive omeprazole 20 mg capsule,delayed release RxNorm: 491873 TAKE 1 CAPSULE BY MOUTH EVERY DAY 2020 Inactive metformin 500 mg tablet RxNorm: 151502 1 Tablet(s) Oral every day 2019 Inactive True Metrix Glucose Test Strip RxNorm: 1 Test Strips Miscellaneous two times a day as needed No Stop Date Active metformin 500 mg tablet RxNorm: 040701 1 Tablet(s) Oral every day 020 2019 Inactive diclofenac sodium 75 mg tablet,delayed release RxNorm: 937472 1 Tablet(s) PO BID 020 2021 Inactive This refill negates all other refills of this medication Sudafed 12 Hour 120 mg tablet,extended release RxNorm: 8370455 TAKE 1 TABLET BY MOUTH EVERY 12 HOURS NEEDED 020 2019 Inactive True Metrix Glucose Test Strip RxNorm: 1 Test Strips Miscellaneous every morning 020 2019 Inactive 100/container True Metrix Glucose Test Strip RxNorm: 1 Test Strips Miscellaneous QA 020 2019 Inactive 100/container loperamide 2 mg tablet RxNorm: 835997 1 Tablet(s) Oral as needed take one tablet after each loose stool, maximum of 8 tablets in 24 hours 020 2019 Inactive cetirizine 10 mg tablet RxNorm: 7956371 1 Tablet(s) PO daily 2019 Inactive loperamide 2 mg tablet RxNorm: 277764 1 Tablet(s) Oral as needed take one tablet after each loose stool, maximum of 8 tablets in 24 hours 2019 Inactive quetiapine 100 mg tablet RxNorm: 641958 1 Tablet(s) Oral every night at bedtime 2019 Inactive levothyroxine 50 mcg tablet RxNorm: 703415 1 Tablet(s) PO daily 020 2020 Inactive gabapentin 300 mg capsule RxNorm: 060862 1 Capsule(s) PO TID 2019 Inactive levothyroxine 50 mcg tablet RxNorm: 310684 1 Tablet(s) PO daily 2019 Inactive lisinopril 2.5 mg tablet RxNorm: 138399 1 Tablet(s) PO daily 2020 Inactive gabapentin 300 mg capsule RxNorm: 026881 1 Capsule(s) PO TID 2019 Inactive cetirizine 10 mg tablet RxNorm: 0237025 1 Tablet(s) PO daily 2019 Inactive Singulair 10 mg tablet RxNorm: 647464 1 Tablet(s) PO daily 2020 Inactive gentamicin 0.3 % eye drops RxNorm: 146471 1 Drop(s) ophthalmic (eye) four times a day 2019 Inactive gentamicin 0.3 % eye drops RxNorm: 649388 1 Drop(s) ophthalmic (eye) four times a day 020 2019 Inactive gentamicin 0.3 % eye drops RxNorm: 294345 1 Drop(s) ophthalmic (eye) four times a day 020 2019 Inactive hydrochlorothiazide 25 mg tablet RxNorm: 874629 1 Tablet(s) Oral every day 2019 Inactive Sudafed 12 Hour 120 mg tablet,extended release RxNorm: 4705619 TAKE (1) TABLET BY MOUTH EVERY 12 HOURS NEEDED 2019 Inactive loperamide 2 mg tablet RxNorm: 905484 1 Tablet(s) Oral as needed take one tablet after each loose stool, maximum of 8 tablets in 24 hours 020 2019 Inactive loperamide 2 mg tablet RxNorm: 758383 1 Tablet(s) Oral as needed take one tablet after each loose stool, maximum of 8 tablets in 24 hours 020 2019 Inactive atorvastatin 40 mg tablet RxNorm: 044315 1 Tablet(s) Oral every day 2020 Inactive quetiapine 100 mg tablet RxNorm: 827551 1 Tablet(s) Oral every night at bedtime 2019 Inactive sertraline 100 mg tablet RxNorm: 884031 1 Tablet(s) Oral 2019 Inactive omeprazole 20 mg capsule,delayed release RxNorm: 379380 1 Capsule(s) Oral every day 020 2019 Inactive amoxicillin 250 mg capsule RxNorm: 966273 1 Capsule(s) Oral three times a day 2019 Inactive multivitamin with iron-mineral tablet RxNorm: 1 Tablet(s) Oral every day 020 2021 Inactive cetirizine 10 mg tablet RxNorm: 3596589 1 Tablet(s) PO daily 2019 Inactive This refill negates all other refills of this medication. Please do not auto refill Singulair 10 mg tablet RxNorm: 508161 1 Tablet(s) PO daily 020 2019 Inactive This refill negates all other refills of this medication gabapentin 300 mg capsule RxNorm: 231935 1 Capsule(s) PO TID 2019 Inactive lisinopril 2.5 mg tablet RxNorm: 070027 1 Tablet(s) PO daily 2019 Inactive levothyroxine 50 mcg tablet RxNorm: 847947 1 Tablet(s) PO daily 2019 Inactive This refill negates all other refills of this medication hydrochlorothiazide 25 mg tablet RxNorm: 533238 1 Tablet(s) Oral every day 2019 Inactive fenugreek seed extract 500 mg capsule RxNorm: 1 Capsule(s) Oral three times a day 2021 Inactive Alcohol Prep Pads RxNorm: 914826 1 Patch TOP QAM 2020 Inactive loperamide 2 mg tablet RxNorm: 698203 1 Tablet(s) Oral as needed take one [...] 2019 Inactive hydrochlorothiazide 25 mg tablet RxNorm: 552215 1 Tablet(s) Oral every day 2019 Inactive Sudafed 12 Hour 120 mg tablet,extended release RxNorm: 0257771 1 Tablet(s) Oral every 12 hours as needed 019 2018 Inactive omeprazole 20 mg capsule,delayed release RxNorm: 223181 1 Capsule(s) Oral every day 019 2019 Inactive Sudafed 12 Hour 120 mg tablet,extended release RxNorm: 2190578 1 Tablet(s) Oral every 12 hours as needed 2018 Inactive pantoprazole 40 mg tablet,delayed release RxNorm: 856096 1 Tablet(s) Oral every day 019 2018 Inactive discontinue any other H2Blkr. and PPI albuterol sulfate 2.5 mg/3 mL (0.083 %) solution for nebulization RxNorm: 614948 1 Vial Inhalation every four hours as needed as needed for dyspnea 2019 Inactive 60/box. This refill negates all other refills of this medication. Please do not fill early. Please do not auto refill. Symbicort 160 mcg-4.5 mcg/actuation HFA aerosol inhaler RxNorm: 0161319 2 Puff(s) INH BID No Stop Date Active Alcohol Prep Pads RxNorm: 285219 1 Patch TOP QAM 2019 Inactive Ventolin HFA 90 mcg/actuation aerosol inhaler RxNorm: 040979 2 Puff(s) INH QID 2019 Inactive Please do not fill early. Please do not auto refill. This refill negates all other refills of this medication True Metrix Glucose Test Strip RxNorm: 1 Test Strips Miscellaneous QAM 019 2019 Inactive 100/container atorvastatin 40 mg tablet RxNorm: 043890 1 Tablet(s) Oral every day 019 2019 Inactive buspirone 7.5 mg tablet RxNorm: 078980 1 Tablet(s) PO BID 019 2020 Inactive This refill negates all other refills of this medication hydrochlorothiazide 12.5 mg tablet RxNorm: 566730 1 Tablet(s) PO QAM 019 2019 Inactive levmetamfetamine 50 mg nasal inhaler RxNorm: 1 Unit(s) NASAL Q3-4H Do not use more than every 3 hours or 8 times/24hours 019 2021 Inactive Please do not auto refill. This refill negates all other refills of this medication Ventolin HFA 90 mcg/actuation aerosol inhaler RxNorm: 991566 2 Puff(s) INH QID 019 2018 Inactive Please do not fill early. Please do not auto refill. This refill negates all other refills of this medication Singulair 10 mg tablet RxNorm: 720259 1 Tablet(s) PO daily 019 2019 Inactive This refill negates all other refills of this medication cetirizine 10 mg tablet RxNorm: 9262738 1 Tablet(s) PO daily 019 2019 Inactive This refill negates all other refills of this medication. Please do not auto refill levothyroxine 50 mcg tablet RxNorm: 138357 1 Tablet(s) PO daily 019 2019 Inactive This refill negates all other refills of this medication diclofenac sodium 75 mg tablet,delayed release RxNorm: 507334 1 Tablet(s) PO BID 019 2019 Inactive This refill negates all other refills of this medication ranitidine 150 mg tablet RxNorm: 613822 1 Tablet(s) PO BID 019 2018 Inactive This refill negates all other refills of this medication Calcium 600-D3 Plus (mag-zinc) 600 mg calcium-800 unit-50 mg tablet RxNorm: 1 Tablet(s) PO daily take an additonal tablet for itching. 019 2018 Inactive This refill negates all other refills of this medication albuterol sulfate 2.5 mg/3 mL (0.083 %) solution for nebulization RxNorm: 334727 1 Vial INH QID 019 2018 Inactive 60/box. This refill negates all other refills of this medication. Please do not fill early. Please do not auto refill. lisinopril 2.5 mg tablet RxNorm: 141922 1 Tablet(s) PO daily 019 2019 Inactive gabapentin 300 mg capsule RxNorm: 090085 1 Capsule(s) PO TID 019 2019 Inactive atorvastatin 20 mg tablet RxNorm: 278071 1 Tablet(s) PO QHS 019 2018 Inactive This refill negates all other refills of this medication TRUEplus Lancets 30 gauge RxNorm: 1 Lancets Miscellaneous QAM 019 2018 Inactive 100/box gabapentin 300 mg capsule RxNorm: 149791 1 Capsule(s) PO TID 019 2018 Inactive Flintstones Complete (iron) 18 mg iron chewable tablet RxNorm: 1 Tablet(s) PO daily 019 2021 Inactive This refill negates all other refills of this medication gabapentin 300 mg capsule RxNorm: 688955 1 Capsule(s) PO TID as needed 019 2018 Inactive True Metrix Glucose Test Strip RxNorm: 1 Test Strips Miscellaneous QAM 2018 Inactive 100/container Alcohol Prep Pads RxNorm: 467307 1 Patch TOP QAM 019 2018 Inactive TRUEplus Lancets 30 gauge RxNorm: 1 Lancets Miscellaneous QAM 019 2018 Inactive 100/box lisinopril 2.5 mg tablet RxNorm: 254214 1 Tablet(s) PO daily 019 2018 Inactive ranitidine 150 mg tablet RxNorm: 873484 1 Tablet(s) PO BID 2018 Inactive This refill negates all other refills of this medication albuterol sulfate 2.5 mg/3 mL (0.083 %) solution for nebulization RxNorm: 649841 1 Vial INH QID 019 2018 Inactive [...] this medication gabapentin 300 mg capsule RxNorm: 172986 1 Capsule(s) PO TID as needed 019 2018 Inactive atorvastatin 20 mg tablet RxNorm: 426034 1 Tablet(s) PO QHS 019 2018 Inactive This refill negates all other refills of this medication trazodone 50 mg tablet RxNorm: 505719 1 Tablet(s) PO QHS 019 2018 Inactive This refill negates all other refills of this medication Ventolin HFA 90 mcg/actuation aerosol inhaler RxNorm: 129323 2 Puff(s) INH QID 019 2018 Inactive Please do not fill early. Please do not auto refill. This refill negates all other refills of this medication Calcium 600-D3 Plus 600 mg calcium-800 unit-50 mg tablet RxNorm: 1 Tablet(s) PO daily take an additonal tablet for itching. 019 2018 Inactive This refill negates all other refills of this medication Singulair 10 mg tablet RxNorm: 055646 1 Tablet(s) PO daily 019 2018 Inactive This refill negates all other refills of this medication buspirone 7.5 mg tablet RxNorm: 101847 1 Tablet(s) PO BID 019 2018 Inactive This refill negates all other refills of this medication diclofenac sodium 75 mg tablet,delayed release RxNorm: 819525 1 Tablet(s) PO BID 019 2018 Inactive This refill negates all other refills of this medication hydrochlorothiazide 12.5 mg tablet RxNorm: 925810 1 Tablet(s) PO QAM 019 2018 Inactive metoprolol succinate ER 50 mg tablet,extended release 24 hr RxNorm: 717023 1 Tablet(s) PO daily 019 2018 Inactive This refill negates all other refills of this medication levothyroxine 50 mcg tablet RxNorm: 731763 1 Tablet(s) PO daily 019 2018 Inactive This refill negates all other refills of this medication cetirizine 10 mg tablet RxNorm: 5559962 1 Tablet(s) PO daily 019 2018 Inactive This refill negates all other refills of this medication. Please do not auto refill Flintstones Complete (iron) 18 mg iron chewable tablet RxNorm: 1 Tablet(s) PO daily 019 2018 Inactive This refill negates all other refills of this medication buspirone 7.5 mg tablet RxNorm: 204555 1 Tablet(s) PO BID 2018 Inactive cetirizine 10 mg tablet RxNorm: 2823491 1 Tablet(s) PO daily 2018 Inactive Guaiasorb DM 10 mg-100 mg/5 mL oral liquid RxNorm: 369936 10 Milliliter(s) PO As needed every 4 hr 2018 Inactive Vicks Vaporub 4.7 %-1.2 %-2.6 % topical ointment RxNorm: 3554972 1 Application TOP TID 2018 Inactive levmetamfetamine 50 mg nasal inhaler RxNorm: 1 Unit(s) NASAL Q3-4H 2017 Inactive sertraline 50 mg tablet RxNorm: 696076 1 Tablet(s) PO daily 2018 Inactive Please note dose trazodone 50 mg tablet RxNorm: 556543 1 Tablet(s) PO QHS 2018 Inactive sertraline 50 mg tablet RxNorm: 594543 1 Tablet(s) PO daily 018 2017 Inactive amoxicillin 500 mg tablet RxNorm: 817132 1 Tablet(s) PO Q12H 2017 Inactive albuterol sulfate 2.5 mg/3 mL (0.083 %) solution for nebulization RxNorm: 624675 1 Vial INH QID 2018 Inactive 60/box. Please do not fill early. Please do not auto refill. Prozac 10 mg capsule RxNorm: 330516 1 Capsule(s) PO daily 018 2017 Inactive buspirone 7.5 mg tablet RxNorm: 315206 1 Tablet(s) PO BID 018 2018 Inactive gabapentin 300 mg capsule RxNorm: 396446 1 Capsule(s) PO TID as needed 2018 Inactive hydrochlorothiazide 12.5 mg tablet RxNorm: 885535 1 Tablet(s) PO QAM 018 2018 Inactive ranitidine 150 mg tablet RxNorm: 728948 1 Tablet(s) PO BID 2018 Inactive Macrobid 100 mg capsule RxNorm: 947677 1 Capsule(s) PO Q12H 018 2017 Inactive Singulair 10 mg tablet RxNorm: 160551 1 Tablet(s) PO daily 018 2018 Inactive Ventolin HFA 90 mcg/actuation aerosol inhaler RxNorm: 5325405 2 Puff(s) INH QID 018 2018 Inactive Singulair 10 mg tablet RxNorm: 880559 1 Tablet(s) PO daily 018 2017 Inactive buspirone 7.5 mg tablet RxNorm: 660609 1 Tablet(s) PO BID 018 2017 Inactive Prozac 10 mg capsule RxNorm: 842787 1 Capsule(s) PO daily 018 2017 Inactive diclofenac sodium 75 mg tablet,delayed release RxNorm: 878231 1 Tablet(s) PO BID 018 2017 Inactive lisinopril 2.5 mg tablet RxNorm: 343605 1 Tablet(s) PO daily 018 2017 Inactive Neilmed Pediatric Sinus Rinse Refill packet RxNorm: 1 Unit Dose NASAL PRN 018 2021 Inactive metoprolol succinate ER 50 mg tablet,extended release 24 hr RxNorm: 101376 1 Tablet(s) PO daily 018 2017 Inactive levothyroxine 50 mcg tablet RxNorm: 193044 1 Tablet(s) PO daily 018 2017 Inactive TRUEplus Lancets 30 gauge RxNorm: 1 Lancets Miscellaneous QAM 018 2017 Inactive 100/box Ventolin HFA 90 mcg/actuation aerosol inhaler RxNorm: 481781 2 Puff(s) INH QID 018 2017 Inactive Aleve 220 mg capsule RxNorm: 2122287 1 Capsule(s) PO BID 018 2018 Inactive ranitidine 150 mg tablet RxNorm: 665559 1 Tablet(s) PO BID 018 2017 Inactive gabapentin 300 mg capsule RxNorm: 829914 1 Capsule(s) PO TID as needed 018 2017 Inactive atorvastatin 20 mg tablet RxNorm: 840680 1 Tablet(s) PO QHS 018 2017 Inactive True Metrix Glucose Test Strip RxNorm: 1 Test Strips Miscellaneous QAM 018 2017 Inactive 50/container Calcium 600-D3 Plus 600 mg calcium-800 unit-50 mg tablet RxNorm: 1 Tablet(s) PO daily take an additonal tablet for itching. 018 2017 Inactive hydrochlorothiazide 12.5 mg tablet RxNorm: 082428 1 Tablet(s) PO QAM 018 2017 Inactive Flintstones Complete (iron) 18 mg iron chewable tablet RxNorm: 1 Tablet(s) PO daily 018 2017 Inactive True Metrix Glucose Meter RxNorm: miscellaneous 019 2018 Inactive sertraline 50 mg tablet RxNorm: 972896 1 Tablet(s) PO daily 020 2019 Inactive loperamide 2 mg tablet RxNorm: 285551 oral 019 2018 Inactive d-mannose oral powder RxNorm: PO 018 2021 Inactive Symbicort 160 mcg-4.5 mcg/actuation HFA aerosol inhaler RxNorm: 3977503 2 Puff(s) INH BID 019 2018 Inactive Medication Administered No Medication Administered data Procedures Procedure Codes Date [place] Assessment CPT-4: DSWA 04/02 Patient Health [...] CPT-4: VACP Fall Risk Assessment SNOMED CT: 17555735 4 CPT-4: DFRA 01/13/2021 [place] Assessment CPT-4: DSWA 12/01 Urinalysis, dip stick CPT-4: 01806 09/24/2020 Patient Health Questionnaire CPT-4: DPHQ Electrocardiogram CPT-4: 07205 05/14/2020 Tobacco Assessment/Screening CPT-4: TCA Fall Risk Assessment SNOMED CT: 52129578 4 CPT-4: DFRA 01/01/2020 Functional Assessment CPT-4: DFA 01/01/2020 [place] Assessment CPT-4: DSWA 11/04 Patient Health Questionnaire CPT-4: DPHQ [place] Assessment CPT-4: DSWA 10/03 Hypertension CPT-4: HTN 10/17/2019 Fall Risk Assessment SNOMED CT: 12868871 4 CPT-4: DFRA 09/19/2019 Functional Assessment CPT-4: DFA 09/19/2019 Urinalysis, dip stick CPT-4: 02603 06/21/2019 Tobacco Assessment/Screening CPT-4: TCA Patient Health Questionnaire CPT-4: DPHQ AHA/REBECCA Classification Assessment CPT-4: DAHA 04/25/2019 Controlled Substance Report CPT-4: CTRSU 04/03 Urinalysis, dip stick CPT-4: 07526 03/28/2019 Urinalysis, dip stick CPT-4: 70083 03/28/2019 R2Q-Zamueskkgtmrjpq CPT-4: 78289 Unknown I8E-Nnvtfcpvijbiovy CPT-4: 97046 Unknown J3L-Yidzjirfkdbdmle CPT-4: 08474 Unknown H2Q-Fzfvluhboemckfl CPT-4: 33437 Unknown A5E-Dgxomuhicrldlnk CPT-4: 22958 Unknown V6V-Wktgzepnnzdevhb CPT-4: 24503 Unknown K9Y-Jrkywzexmkuivic CPT-4: 96988 Unknown P8Q-Nsgduntjyjovkhe CPT-4: 09733 Unknown G1L-Syurokbkcmugtbz CPT-4: 49739 Unknown M6R-Wwiedfzdvxhorbn CPT-4: 40877 Unknown Gynecology Referral SNOMED CT: 605631202 CPT-4: R14 Unknown Reason For Visit No Reason For Visit data Plan of Care Planned Activity Notes Codes Status Date Patient Education: Patient Medication Summary Completed 07/31/2022 Appointment: Anna Culver WPtel: [address] [place] [address] E410 06/23/2022 Appointment: Chivo Bishop WPtel: [address] [place] [address] E410 04/19/2022 Appointment: Chivo Bishop WPtel: [address] [place] [address] E410 02/11/2022 Appointment: Mikey Nair WPtel: [facility] [place] [id number] E410 12/03/2021 Appointment: Chivo Bishop WPtel: [address] [place] [address] E410 11/02/2021 Appointment: Chivo Bishop WPtel: [address] [place] [address] E410 10/07/2021 Appointment: Chivo Bishop WPtel: [address] [place] [address] ETV 09/10/2021 Appointment: Chivo Bishop WPtel: [address] [place] [address] ETV 08/13/2021 Appointment: Chivo Bishop WPtel: [address] [place] [address] ETV 07/06/2021 Appointment: Chivo Bishop WPtel: [address] [place] [address] PHTV 06/10/2021 Appointment: Anna Culver WPtel: [address] [place] [address] ETV 06/02/2021 Appointment: Chivo Bishop WPtel: [address] [place] [address] ETV 05/20/2021 Appointment: Anna Culver WPtel: [address] [place] [address] ETV 04/28/2021 Appointment: Chivo Bishop WPtel: [address] [place] [address] ETV 04/15/2021 Appointment: Anna Culver WPtel: [address] [place] [address] E410 04/01/2021 Appointment: Anna Culver WPtel: [address] [place] [address] ETV 03/24/2021 Appointment: Anna Culver WPtel: [address] [place] [address] ETV 03/13/2021 Appointment: Anna Culver WPtel: [id number] [place] [address] E410 02/11/2021 Appointment: Chivo Bishop WPtel: [address] [place] [address] E410 01/29/2021 Appointment: Anna Culver WPtel: [address] [place] [address] ETV 01/13/2021 Appointment: Anna Culver WPtel: [address] [place] [address] E410 12/17/2020 Appointment: Chivo Bishop WPtel: [address] [place] [address] ETV 11/28/2020 Appointment: Anna Culver WPtel: [address] [place] [address] ETV 11/24/2020 Appointment: Anna Culver WPtel: [address] [place] [address] E410 10/29/2020 Appointment: Anna Culver WPtel: [address] [place] [address] E410 09/24/2020 Appointment: Anna Culver WPtel: [address] [place] [address] ETV 08/26/2020 Appointment: Anna Culver WPtel: [address] [place] [address] ETV 08/19/2020 Appointment: Anna Culver WPtel: [address] [place] [address] ETV 07/22/2020 Appointment: Anna Culver WPtel: [address] [place] [address] ETV 07/08/2020 Appointment: Gianna Birmingham: [address] [facility] [address] [id number] [place] ECHO 07/02/2020 Appointment: Anna Culver WPtel: [id number] [place] [address] E452 06/11/2020 Appointment: Anna Culver WPtel: [address] [place] [address] E452 05/14/2020 Appointment: Anna Culver WPtel: [id number] [place] [address] E452 04/17/2020 Appointment: Anna Culver WPtel: [address] [place] [address] E452 03/21/2020 Appointment: Anna Culver WPtel: [address] [place] [address] E452 02/14/2020 Appointment: Anna Culver WPtel: [address] [place] [address] E452 01/24/2020 Appointment: Anna Culver WPtel: [address] [place] [address] E452 01/01/2020 Appointment: Anna Culver WPtel: [address] [place] [address] E452 11/28/2019 Appointment: Anna Culver WPtel: [address] [place] [address] E452 10/17/2019 Appointment: Anna Culver WPtel: [address] [place] [address] E452 09/19/2019 Appointment: Sudha Hernadez WPtel: [address] [facility] [place] [id number] E452 07/04/2019 Appointment: Sudha Hernadez WPtel: [address] [place] [address] [id number] 06/21/2019 Appointment: Charlene Oropeza WPtel: [address] [facility] [place] [id number] E452 05/24/2019 Appointment: Bianca Delgadoedo E452 04/27/2019 Appointment: Charlene Oropeza WPtel: [address] [facility] [place] [id number] E452 04/25/2019 Appointment: Rasta Palafox WPtel: [address] [place] [address] [id number] E452 03/28/2019 Appointment: Rasta Palafox WPtel: [address] [place] [address] [id number] E452 02/14/2019 Appointment: Rasta Palafox WPtel: [address] [place] [address] [id number] E452 01/31/2019 Appointment: Rasta Palafox WPtel: [address] [place] [address] [id number] E420 12/27/2018 Referral: Pending Gynecology Referral Information Referral Processed Referral: Pending Pulmonolog y Referral Information Referral Processed Referral: Pending Psychiatry Referral Information Referral Initiated Referral: Pending Respirator y Services Referral Information Referral Initiated Referral: Pending Ophthalmology Referral Information Referral Initiated Referral: [facility] WPtel: 2 [facility] [address] Environmental Services Project Manager placed a call out to the patient to notify her that it has been recommended that she be seen by 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 Patient agreed to be seen, does not have a provider of choice and no transportation issues. Environmental Services Project Manager faxed referral and clinical notes to [facility] in [place], [place] near the patient's home. Patient to [...] seen and prefers a provider in the [place] or [place] area. Environmental Services Project Manager placed a call out to everyone listed in the area and the only location that was able to accept the patient's insurance was [facility] Ophthalmology [facility] [place] [address] and spoke with Maylin. Maylin asked that the patient's referral, face sheet and visit notes be faxed to . Environmental Services Project Manager faxed over requested documents. Patient appointment confirmation letter generated and mailed to her home address. Patient to call to schedule an appointment. Processed Referral: [facility] WPtel: [address] [place], [place] [id number] Patient notified that it has been advised that she be seen by Neurology. Patient agreed to be seen and prefers to be seen by a provider in the [place], [place] area. Patient denies any concerns with transportation, and prefers to schedule her own appointment. Environmental Services Project Manager placed a call out to [facility] and spoke with Neeraj P: who confirmed that their office is able to accept new patients and the patient's insurance. After confirming the providers fax number, automobile and property underwriter faxed over the patient's referral, [...]
--- OUTSIDE RECORDS SUMMARY | 2022-08-10 20:00 | XMS_ITS | CCD ---
Author Name Darrell Carrion Address [address] [place] [address] Phone Organization [facility] Phone Care Team Providers Care Veneer Redrier Name Role Phone Anna Culver NP Primary Care Provider Unav ailable Unavailable Chronic Care Management Unavaila ble Summary Purpose DataExchange Insurance Providers Payer name Policy type / Coverage type Covered constitution party ID Effective Begin Date Effective End Date SUKI MAYO [id number] Unknown Unknown Family history Mother Diagnosis Age [...] Unknown Disability 05/31/[address]: 962490872 Has never s moked or chewed tobacco 05/31/[address]: 249944384 Never drinks alco hol 05/31/2018 Has the patient ever used illegal drugs? Unknown Has never used illegal drugs 05/31/2018 DNR Order/ Advanced Directive Unknown Full Code 05/31/2018 Allergies, Adverse Reactions, Alerts Substance Reaction Codes Entered Date Inactivated Date Status OxyContin itch, RxNorm: 559979 01/13/2021 No Inactive Da te Active *No known food allergies Unknown 09/06/2018 No I nactive Date Active Methylprednisolone hives RxNorm: 6902 09/06/2018 No Inac tive Date Active Problems Condition Codes Effective Dates Condition St atus Asthma ICD-10: J45.909 ICD-9: 493.90 08/08/2018 Active GERD (gastroesophageal reflu x disease) ICD-10: K21.9 ICD-9: 530.81 09/07/2019 Active Major depression, recurrent ICD-10: F33. 9 ICD-9: 296.30 06/23/2022 Active Obstructive sleep apnea (chio lt) (pediatric) ICD-10: G47.33 ICD-9: 327.23 06/21/2019 Active Post-traumatic stress disord er, unspecified ICD-10: F43.10 ICD-9: 309.81 09/05/2018 Active Type 2 diabetes mellitus wit h peripheral neuropathy ICD-10: E11.42 ICD-9: 250.60 11/28/2019 Active Adjustment disorder with mix ed anxiety and depressed mood ICD-10: F43.23 ICD-9: 309.28 09/05/2018 Active Ankle sprain ICD-10: S93.409A ICD-9: 845.00 07/31/2022 Active Adult BMI 50.0-59.9 kg/sq m ICD-10: Z68. 43 ICD-9: V85.43 05/30/2018 Active Hypertensive heart disease ICD-10: I11.9 ICD-9: 402.90 12/03/2021 Active Hypothyroid ICD-10: E03.9 ICD-9: 244.9 09/05/2018 Active Influenza vaccine refused ICD-10: Z28.21 ICD-9: V64.06 06/23/2022 Active Abscess ICD-10: L02.91 ICD-9: 682.9 04/21/2022 Active Hyperlipidemia, mixed ICD-10: E78.2 ICD-9: 272.2 12/03/2021 Active Hypertension ICD-10: I10 ICD-9: 401.9 12/03/2021 Active (Z00.00-V70.9) Encounter for general adult medical examination without abnormal findings ICD-10: Z00.00 ICD-9: V70.9 02/11/2022 Active Allergic rhinitis ICD-10: J30.9 ICD-9: 477.9 12/03/2021 Active Edema, unspecified ICD-10: R60.9 ICD-9: 782.3 [...] ICD-10: E78. 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 ad terminal makeup operator (current) use of non-steroidal anti-inflammatories (NSAID) ICD-10: Z79.1 ICD-9: V58.64 06/13/2018 Resolved Patient Not Seen ICD-10: UXZ.01 ICD-9: XZ0.1 04/27/2019 Resolved Patient not seen ICD-10: UXZ.01 ICD-9: UXZ.01 09/10/2021 Resolved Upper respiratory infection ICD-10: J06. 9 ICD-9: 465.9 06/02/2021 Resolved Syncope and collapse ICD-10: R55 ICD-9: 780.2 01/01/2020 Active History of bladder surgery ICD-10: Z98.8 [...] ICD-10: R51 ICD-9: 784.0 10/03/2018 Inactive Other ad terminal makeup operator (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 ICD-10: Z79.899 ICD-9: V58.69 04/25/2019 Inactive Type 2 diabetes mellitus wit hout complications ICD-10: E11.9 ICD-9: 250.00 10/03/2018 Inactive Wheezing ICD-10: R06.2 ICD-9: 786.07 08/08/2018 Inactive Abnormal urine finding ICD-10: R82.90 ICD-9: 791.9 09/24/2020 Resolved Abrasion of toe ICD-10: S90.416A ICD-9: 917.0 02/14/2020 Resolved High [place] eye ICD-10: H10.029 ICD-9: 372.03 12/29/2019 Resolved [...] (18 mg/3 mL) subcutaneous pen injector RxNorm: 239117 Inject 0.6-1.8 Milligram(s) Subcutaneous once a week Inject 0.6mg/0.1ml week one, 1.2mg/0.2ml week two, 1.8/0.3ml weekly thereafter 022 2021 Inactive ibuprofen 800 mg tablet RxNorm: 598261 Take 1 Tablet(s) Oral Q8H as needed for pain take with food 022 No Stop Date Active Ozempic 1 mg/dose (4 mg/3 mL) subcutaneous pen injector RxNorm: 7886658 Take 1 Unit Dose Subcutaneous QWeek Tuesday 022 2021 Inactive lisinopril 2.5 mg tablet RxNorm: 759219 Take 1 Tablet(s) Oral every day 022 2021 Inactive lisinopril 2.5 mg tablet RxNorm: 633885 Take 1 Tablet(s) Oral every day 022 2022 Inactive hydrochlorothiazide 25 mg tablet RxNorm: 404377 Take 1 Tablet(s) Oral every day 022 2021 Inactive Ozempic 1 mg/dose (4 mg/3 mL) subcutaneous pen injector RxNorm: 2229256 Take 1 Unit Dose Subcutaneous QWeek 2021 Inactive famotidine 20 mg tablet RxNorm: 837977 Take 1 Tablet(s) Oral every morning 2021 Inactive levothyroxine 50 mcg tablet RxNorm: 762372 Take 1 Tablet(s) Oral every day 2021 Inactive atorvastatin 20 mg tablet RxNorm: 493464 Take 1 Tablet(s) Oral every night at bedtime 2021 Inactive Cleocin T 1 % lotion RxNorm: 244744 Take 2 Gram(s) Topical every day 022 2021 Inactive Cleocin T 1 % lotion RxNorm: 856006 Take 2 Gram(s) Topical every day 2021 Inactive Ozempic 1 mg/dose (4 mg/3 mL) subcutaneous pen injector RxNorm: 1129403 Take 1 Unit Dose Subcutaneous QWeek 022 2021 Inactive Ozempic 0.25 mg or 0.5 mg (2 mg/1.5 mL) subcutaneous pen injector RxNorm: 1765933 INJECT 0.5 MGS SUBCUTANEOUSLY EVERY WEEK 022 2021 Inactive omeprazole 20 mg capsule,delayed release RxNorm: 812868 Take 1 Capsule(s) Oral every evening 2021 Inactive levothyroxine 50 mcg tablet RxNorm: 443977 Take 1 Tablet(s) Oral every day 05/25/11 Inactive atorvastatin 20 mg tablet RxNorm: 449333 Take 1 Tablet(s) Oral every night at bedtime 2021 Inactive This refill negates all other refills of this medication lisinopril 2.5 mg tablet RxNorm: 309028 Take 1 Tablet(s) Oral every day 2021 Inactive gabapentin 300 mg capsule RxNorm: 308287 Take 1 Capsule(s) Oral three times a day 2021 Inactive montelukast 10 mg tablet RxNorm: 451232 Take 1 Tablet(s) Oral every day 2021 Inactive cholecalciferol (vitamin D3) 50 mcg (2,000 unit) tablet RxNorm: 039530 Take 1 Tablet(s) Oral every day 2022 Inactive Myrbetriq 50 mg tablet,extended release RxNorm: 5690631 1 Tablet(s) Oral every day No Stop Date Active Ozempic 0.25 mg or 0.5 mg (2 mg/1.5 mL) subcutaneous pen injector RxNorm: 9568528 inject 0.5 milligrams subcutaneously every week 2021 Inactive Ozempic 0.25 mg or 0.5 mg (2 mg/1.5 mL) subcutaneous pen injector RxNorm: 7389306 Take 0.5 Capsule(s) Injection once a week 2021 Inactive omeprazole 20 mg capsule,delayed release RxNorm: 379484 Take 1 Capsule(s) Oral every evening 2020 Inactive Ozempic 0.25 mg or 0.5 mg (2 mg/1.5 mL) subcutaneous pen injector RxNorm: 9484983 Take 0.25 Milligram(s) Subcutaneous once a week 2021 Inactive Easy Touch Alcohol Prep Pads RxNorm: 983093 USE DIRECTED EACH MORNING 2021 Inactive Probiotic 10 billion cell capsule RxNorm: 5389529 Take 1 Capsule(s) Oral every day 021 2021 Inactive levothyroxine 50 mcg tablet RxNorm: 799365 Take 1 Tablet(s) Oral every day 021 2020 Inactive Acid Wound/Ostomy Clinical Nurse Specialist (famotidine) 20 mg tablet RxNorm: 675783 Take 1 Tablet(s) Oral every morning 021 2020 Inactive Heartburn Relief (famotidine) 10 mg tablet RxNorm: 431784 Take 1 Tablet(s) Oral QAM 021 2020 Inactive levothyroxine 50 mcg tablet RxNorm: 571589 Take 1 Tablet(s) Oral QD 2020 Inactive Singulair 10 mg tablet RxNorm: 111759 TAKE (1) TABLET BY MOUTH DAILY 2020 Inactive metformin 1,000 mg tablet RxNorm: 379712 1 Tablet(s) Oral two times a day 2021 Inactive lisinopril 2.5 mg tablet RxNorm: 314313 Take 1 Tablet(s) Oral every day 021 2020 Inactive hydrochlorothiazide 25 mg tablet RxNorm: 194103 Take 1 Tablet(s) Oral every day 021 2020 Inactive ondansetron 4 mg disintegrating tablet RxNorm: 174162 1 Tablet(s) Oral two times a day 021 2020 Inactive Sudafed 12 Hour 120 mg tablet,extended release RxNorm: 7470414 TAKE 1 TABLET BY MOUTH EVERY 12 HOURS NEEDED 2021 Inactive Heartburn Relief (famotidine) 10 mg tablet RxNorm: 761716 Take 1 Tablet(s) Oral every morning 021 2020 Inactive omeprazole 20 mg capsule,delayed release RxNorm: 147886 1 Capsule(s) Oral every evening 021 2020 Inactive sertraline 100 mg tablet RxNorm: 073374 2 Tablet(s) Oral every day 021 2020 Inactive levothyroxine 50 mcg tablet RxNorm: 890017 TAKE (1) TABLET BY MOUTH DAILY 021 2020 Inactive metformin 500 mg tablet RxNorm: 264184 1 Tablet(s) Oral two times a day take with 500mg to equal 1000mg 021 2020 Inactive gabapentin 300 mg capsule RxNorm: 734818 TAKE 1 CAPSULE BY MOUTH THREE TIMES A DAY 021 2020 Inactive lisinopril 2.5 mg tablet RxNorm: 791138 TAKE 1 TABLET BY MOUTH DAILY 021 2020 Inactive gabapentin 300 mg capsule RxNorm: 287871 TAKE 1 CAPSULE BY MOUTH THREE TIMES A DAY 021 2020 Inactive Singulair 10 mg tablet RxNorm: 693046 TAKE (1) TABLET BY MOUTH DAILY 021 2020 Inactive metformin 1,000 mg tablet RxNorm: 967746 1 Tablet(s) Oral two times a day 021 2020 Inactive atorvastatin 40 mg tablet RxNorm: 266132 1 Tablet(s) Oral every day 021 2020 Inactive omeprazole 20 mg capsule,delayed release RxNorm: 619926 1 Capsule(s) Oral every evening 021 2020 Inactive famotidine 10 mg tablet RxNorm: 734188 1 Tablet(s) Oral every morning 021 2020 Inactive Alcohol Prep Pads RxNorm: 405018 USE EACH MORNING 021 2020 Inactive omeprazole 20 mg capsule,delayed release RxNorm: 418744 1 Capsule(s) Oral two times a day 021 2021 Inactive omeprazole 20 mg capsule,delayed release RxNorm: 348499 TAKE 1 CAPSULE BY MOUTH EVERY DAY 021 2021 Inactive Macrobid 100 mg capsule RxNorm: 046040 1 Capsule(s) Oral every 12 hours with food 020 2020 Inactive omeprazole 20 mg capsule,delayed release RxNorm: 868776 1 Capsule(s) Oral two times a day 2021 Inactive metformin 1,000 mg tablet RxNorm: 126944 1 Tablet(s) Oral two times a day 2020 Inactive start on September 11, 2020 metformin 500 mg tablet RxNorm: 831870 1 Tablet(s) Oral two times a day take with 500mg to equal 1000mg 2019 Inactive gabapentin 300 mg capsule RxNorm: 500377 TAKE 1 CAPSULE BY MOUTH THREE TIMES DAILY 2020 Inactive cetirizine 10 mg tablet RxNorm: 1997507 TAKE (1) TABLET BY MOUTH DAILY 2020 Inactive metformin 500 mg tablet RxNorm: 648612 1 Tablet(s) Oral two times a day 2019 Inactive loperamide 2 mg tablet RxNorm: 871971 1 Tablet(s) Oral as needed take one tablet after each loose stool, maximum of 8 tablets in 24 hours 2021 Inactive Sudafed 12 Hour 120 mg tablet,extended release RxNorm: 0616585 TAKE 1 TABLET BY MOUTH EVERY 12 HOURS NEEDED 2019 Inactive hydrochlorothiazide 25 mg tablet RxNorm: 463611 TAKE (1) TABLET BY MOUTH EVERY DAY 2019 Inactive omeprazole 20 mg capsule,delayed release RxNorm: 782154 TAKE 1 CAPSULE BY MOUTH EVERY DAY 2020 Inactive metformin 500 mg tablet RxNorm: 459200 1 Tablet(s) Oral every day 2019 Inactive True Metrix Glucose Test Strip RxNorm: 1 Test Strips Miscellaneous two times a day as needed No Stop Date Active metformin 500 mg tablet RxNorm: 663297 1 Tablet(s) Oral every day 020 2019 Inactive diclofenac sodium 75 mg tablet,delayed release RxNorm: 694613 1 Tablet(s) PO BID 2021 Inactive This refill negates all other refills of this medication Sudafed 12 Hour 120 mg tablet,extended release RxNorm: 7461790 TAKE 1 TABLET BY MOUTH EVERY 12 HOURS NEEDED 020 2019 Inactive True Metrix Glucose Test Strip RxNorm: 1 Test Strips Miscellaneous every morning 020 2019 Inactive 100/container True Metrix Glucose Test Strip RxNorm: 1 Test Strips Miscellaneous QAM 020 2019 Inactive 100/container loperamide 2 mg tablet RxNorm: 664361 1 Tablet(s) Oral as needed take one tablet after each loose stool, maximum of 8 tablets in 24 hours 020 2019 Inactive cetirizine 10 mg tablet RxNorm: 0658240 1 Tablet(s) PO daily 020 2019 Inactive loperamide 2 mg tablet RxNorm: 452602 1 Tablet(s) Oral as needed take one tablet after each loose stool, maximum of 8 tablets in 24 hours 020 2019 Inactive quetiapine 100 mg tablet RxNorm: 533971 1 Tablet(s) Oral every night at bedtime 2019 Inactive levothyroxine 50 mcg tablet RxNorm: 972736 1 Tablet(s) PO daily 2020 Inactive gabapentin 300 mg capsule RxNorm: 098430 1 Capsule(s) PO TID 2019 Inactive levothyroxine 50 mcg tablet RxNorm: 136929 1 Tablet(s) PO daily 2019 Inactive lisinopril 2.5 mg tablet RxNorm: 516168 1 Tablet(s) PO daily 020 2020 Inactive gabapentin 300 mg capsule RxNorm: 433174 1 Capsule(s) PO TID 2019 Inactive cetirizine 10 mg tablet RxNorm: 9540777 1 Tablet(s) PO daily 020 2019 Inactive Singulair 10 mg tablet RxNorm: 562362 1 Tablet(s) PO daily 020 2020 Inactive gentamicin 0.3 % eye drops RxNorm: 139450 1 Drop(s) ophthalmic (eye) four times a day 2019 Inactive gentamicin 0.3 % eye drops RxNorm: 306984 1 Drop(s) ophthalmic (eye) four times a day 2019 Inactive gentamicin 0.3 % eye drops RxNorm: 885138 1 Drop(s) ophthalmic (eye) four times a day 2019 Inactive hydrochlorothiazide 25 mg tablet RxNorm: 763099 1 Tablet(s) Oral every day 2019 Inactive Sudafed 12 Hour 120 mg tablet,extended release RxNorm: 4340018 TAKE (1) TABLET BY MOUTH EVERY 12 HOURS NEEDED 2019 Inactive loperamide 2 mg tablet RxNorm: 538086 1 Tablet(s) Oral as needed take one tablet after each loose stool, maximum of 8 tablets in 24 hours 2019 Inactive loperamide 2 mg tablet RxNorm: 509374 1 Tablet(s) Oral as needed take one tablet after each loose stool, maximum of 8 tablets in 24 hours 2019 Inactive atorvastatin 40 mg tablet RxNorm: 994236 1 Tablet(s) Oral every day 2020 Inactive quetiapine 100 mg tablet RxNorm: 940598 1 Tablet(s) Oral every night at bedtime 2019 Inactive sertraline 100 mg tablet RxNorm: 829071 1 Tablet(s) Oral 2019 Inactive omeprazole 20 mg capsule,delayed release RxNorm: 674410 1 Capsule(s) Oral every day 2019 Inactive amoxicillin 250 mg capsule RxNorm: 139213 1 Capsule(s) Oral three times a day 2019 Inactive multivitamin with iron-mineral tablet RxNorm: 1 Tablet(s) Oral every day 2021 Inactive cetirizine 10 mg tablet RxNorm: 4037161 1 Tablet(s) PO daily 2019 Inactive This refill negates all other refills of this medication. Please do not auto refill Singulair 10 mg tablet RxNorm: 962509 1 Tablet(s) PO daily 020 2019 Inactive This refill negates all other refills of this medication gabapentin 300 mg capsule RxNorm: 619674 1 Capsule(s) PO TID 2019 Inactive lisinopril 2.5 mg tablet RxNorm: 003176 1 Tablet(s) PO daily 2019 Inactive levothyroxine 50 mcg tablet RxNorm: 819313 1 Tablet(s) PO daily 2019 Inactive This refill negates all other refills of this medication hydrochlorothiazide 25 mg tablet RxNorm: 683890 1 Tablet(s) Oral every day 2019 Inactive fenugreek seed extract 500 mg capsule RxNorm: 1 Capsule(s) Oral three times a day 2021 Inactive Alcohol Prep Pads RxNorm: 004478 1 Patch TOP QAM 2020 Inactive loperamide 2 mg tablet RxNorm: 469917 1 Tablet(s) Oral as needed take one [...] 2019 Inactive hydrochlorothiazide 25 mg tablet RxNorm: 935477 1 Tablet(s) Oral every day 2019 Inactive Sudafed 12 Hour 120 mg tablet,extended release RxNorm: 7303841 1 Tablet(s) Oral every 12 hours as needed 2018 Inactive omeprazole 20 mg capsule,delayed release RxNorm: 828428 1 Capsule(s) Oral every day 019 2019 Inactive Sudafed 12 Hour 120 mg tablet,extended release RxNorm: 6899750 1 Tablet(s) Oral every 12 hours as needed 2018 Inactive pantoprazole 40 mg tablet,delayed release RxNorm: 335084 1 Tablet(s) Oral every day 2018 Inactive discontinue any other H2Blkr. and PPI albuterol sulfate 2.5 mg/3 mL (0.083 %) solution for nebulization RxNorm: 334099 1 Vial Inhalation every four hours as needed as needed for dyspnea 2019 Inactive 60/box. This refill negates all other refills of this medication. Please do not fill early. Please do not auto refill. Symbicort 160 mcg-4.5 mcg/actuation HFA aerosol inhaler RxNorm: 3839594 2 Puff(s) INH BID No Stop Date Active Alcohol Prep Pads RxNorm: 241470 1 Patch TOP QAM 019 2019 Inactive Ventolin HFA 90 mcg/actuation aerosol inhaler RxNorm: 788869 2 Puff(s) INH QID 2019 Inactive Please do not fill early. Please do not auto refill. This refill negates all other refills of this medication True Metrix Glucose Test Strip RxNorm: 1 Test Strips Miscellaneous QAM 019 2019 Inactive 100/container atorvastatin 40 mg tablet RxNorm: 145142 1 Tablet(s) Oral every day 019 2019 Inactive buspirone 7.5 mg tablet RxNorm: 224863 1 Tablet(s) PO BID 019 2020 Inactive This refill negates all other refills of this medication hydrochlorothiazide 12.5 mg tablet RxNorm: 130954 1 Tablet(s) PO QAM 019 2019 Inactive levmetamfetamine 50 mg nasal inhaler RxNorm: 1 Unit(s) NASAL Q3-4H Do not use more than every 3 hours or 8 times/24hours 019 2021 Inactive Please do not auto refill. This refill negates all other refills of this medication Ventolin HFA 90 mcg/actuation aerosol inhaler RxNorm: 386639 2 Puff(s) INH QID 019 2018 Inactive Please do not fill early. Please do not auto refill. This refill negates all other refills of this medication Singulair 10 mg tablet RxNorm: 967993 1 Tablet(s) PO daily 019 2019 Inactive This refill negates all other refills of this medication cetirizine 10 mg tablet RxNorm: 1164589 1 Tablet(s) PO daily 019 2019 Inactive This refill negates all other refills of this medication. Please do not auto refill levothyroxine 50 mcg tablet RxNorm: 399431 1 Tablet(s) PO daily 019 2019 Inactive This refill negates all other refills of this medication diclofenac sodium 75 mg tablet,delayed release RxNorm: 272697 1 Tablet(s) PO BID 019 2019 Inactive This refill negates all other refills of this medication ranitidine 150 mg tablet RxNorm: 543787 1 Tablet(s) PO BID 019 2018 Inactive This refill negates all other refills of this medication Calcium 600-D3 Plus (mag-zinc) 600 mg calcium-800 unit-50 mg tablet RxNorm: 1 Tablet(s) PO daily take an additonal tablet for itching. 019 2018 Inactive This refill negates all other refills of this medication albuterol sulfate 2.5 mg/3 mL (0.083 %) solution for nebulization RxNorm: 687977 1 Vial INH QID 09/24/2018 Inactive 60/box. This refill negates all other refills of this medication. Please do not fill early. Please do not auto refill. lisinopril 2.5 mg tablet RxNorm: 695158 1 Tablet(s) PO daily 019 2019 Inactive gabapentin 300 mg capsule RxNorm: 765830 1 Capsule(s) PO TID 019 2019 Inactive atorvastatin 20 mg tablet RxNorm: 298352 1 Tablet(s) PO QHS 2018 Inactive This refill negates all other refills of this medication TRUEplus Lancets 30 gauge RxNorm: 1 Lancets Miscellaneous QAM 2018 Inactive 100/box gabapentin 300 mg capsule RxNorm: 896509 1 Capsule(s) PO TID 2018 Inactive Flintstones Complete (iron) 18 mg iron chewable tablet RxNorm: 1 Tablet(s) PO daily 2021 Inactive This refill negates all other refills of this medication gabapentin 300 mg capsule RxNorm: 929410 1 Capsule(s) PO TID as needed 2018 Inactive True Metrix Glucose Test Strip RxNorm: 1 Test Strips Miscellaneous QA 2018 Inactive 100/container Alcohol Prep Pads RxNorm: 167670 1 Patch TOP QA 2018 Inactive TRUEplus Lancets 30 gauge RxNorm: 1 Lancets Miscellaneous QAM 2018 Inactive 100/box lisinopril 2.5 mg tablet RxNorm: 216180 1 Tablet(s) PO daily 2018 Inactive ranitidine 150 mg tablet RxNorm: 620618 1 Tablet(s) PO BID 2018 Inactive This refill negates all other refills of this medication albuterol sulfate 2.5 mg/3 mL (0.083 %) solution for nebulization RxNorm: 812239 1 Vial INH QID 019 2018 Inactive [...] this medication gabapentin 300 mg capsule RxNorm: 398851 1 Capsule(s) PO TID as needed 019 2018 Inactive atorvastatin 20 mg tablet RxNorm: 791426 1 Tablet(s) PO QHS 019 2018 Inactive This refill negates all other refills of this medication trazodone 50 mg tablet RxNorm: 334414 1 Tablet(s) PO QHS 019 2018 Inactive This refill negates all other refills of this medication Ventolin HFA 90 mcg/actuation aerosol inhaler RxNorm: 836471 2 Puff(s) INH QID 019 2018 Inactive Please do not fill early. Please do not auto refill. This refill negates all other refills of this medication Calcium 600-D3 Plus 600 mg calcium-800 unit-50 mg tablet RxNorm: 1 Tablet(s) PO daily take an additonal tablet for itching. 019 2018 Inactive This refill negates all other refills of this medication Singulair 10 mg tablet RxNorm: 713059 1 Tablet(s) PO daily 019 2018 Inactive This refill negates all other refills of this medication buspirone 7.5 mg tablet RxNorm: 900650 1 Tablet(s) PO BID 019 2018 Inactive This refill negates all other refills of this medication diclofenac sodium 75 mg tablet,delayed release RxNorm: 864605 1 Tablet(s) PO BID 019 2018 Inactive This refill negates all other refills of this medication hydrochlorothiazide 12.5 mg tablet RxNorm: 610047 1 Tablet(s) PO QAM 019 2018 Inactive metoprolol succinate ER 50 mg tablet,extended release 24 hr RxNorm: 081616 1 Tablet(s) PO daily 019 2018 Inactive This refill negates all other refills of this medication levothyroxine 50 mcg tablet RxNorm: 283563 1 Tablet(s) PO daily 019 2018 Inactive This refill negates all other refills of this medication cetirizine 10 mg tablet RxNorm: 2053261 1 Tablet(s) PO daily 019 2018 Inactive This refill negates all other refills of this medication. Please do not auto refill Flintstones Complete (iron) 18 mg iron chewable tablet RxNorm: 1 Tablet(s) PO daily 019 2018 Inactive This refill negates all other refills of this medication buspirone 7.5 mg tablet RxNorm: 313734 1 Tablet(s) PO BID 2018 Inactive cetirizine 10 mg tablet RxNorm: 4292699 1 Tablet(s) PO daily 2018 Inactive Guaiasorb DM 10 mg-100 mg/5 mL oral liquid RxNorm: 126978 10 Milliliter(s) PO As needed every 4 hr 2018 Inactive Vicks Vaporub 4.7 %-1.2 %-2.6 % topical ointment RxNorm: 4101261 1 Application TOP TID 2018 Inactive levmetamfetamine 50 mg nasal inhaler RxNorm: 1 Unit(s) NASAL Q3-4H 2017 Inactive sertraline 50 mg tablet RxNorm: 638551 1 Tablet(s) PO daily 018 2018 Inactive Please note dose trazodone 50 mg tablet RxNorm: 036240 1 Tablet(s) PO QHS 018 2018 Inactive sertraline 50 mg tablet RxNorm: 655383 1 Tablet(s) PO daily 018 2017 Inactive amoxicillin 500 mg tablet RxNorm: 985492 1 Tablet(s) PO Q12H 018 2017 Inactive albuterol sulfate 2.5 mg/3 mL (0.083 %) solution for nebulization RxNorm: 068299 1 Vial INH QID 018 2018 Inactive 60/box. Please do not fill early. Please do not auto refill. Prozac 10 mg capsule RxNorm: 807985 1 Capsule(s) PO daily 018 2017 Inactive buspirone 7.5 mg tablet RxNorm: 416607 1 Tablet(s) PO BID 018 2018 Inactive gabapentin 300 mg capsule RxNorm: 970335 1 Capsule(s) PO TID as needed 018 2018 Inactive hydrochlorothiazide 12.5 mg tablet RxNorm: 114792 1 Tablet(s) PO QAM 018 2018 Inactive ranitidine 150 mg tablet RxNorm: 381196 1 Tablet(s) PO BID 018 2018 Inactive Macrobid 100 mg capsule RxNorm: 068698 1 Capsule(s) PO Q12H 018 2017 Inactive Singulair 10 mg tablet RxNorm: 111144 1 Tablet(s) PO daily 018 2018 Inactive Ventolin HFA 90 mcg/actuation aerosol inhaler RxNorm: 0450629 2 Puff(s) INH QID 018 2018 Inactive Singulair 10 mg tablet RxNorm: 363470 1 Tablet(s) PO daily 018 2017 Inactive buspirone 7.5 mg tablet RxNorm: 943728 1 Tablet(s) PO BID 018 2017 Inactive Prozac 10 mg capsule RxNorm: 264791 1 Capsule(s) PO daily 018 2017 Inactive diclofenac sodium 75 mg tablet,delayed release RxNorm: 491417 1 Tablet(s) PO BID 018 2017 Inactive lisinopril 2.5 mg tablet RxNorm: 471363 1 Tablet(s) PO daily 018 2017 Inactive Neilmed Pediatric Sinus Rinse Refill packet RxNorm: 1 Unit Dose NASAL PRN 018 2021 Inactive metoprolol succinate ER 50 mg tablet,extended release 24 hr RxNorm: 479320 1 Tablet(s) PO daily 018 2017 Inactive levothyroxine 50 mcg tablet RxNorm: 893109 1 Tablet(s) PO daily 018 2017 Inactive TRUEplus Lancets 30 gauge RxNorm: 1 Lancets Miscellaneous QAM 018 2017 Inactive 100/box Ventolin HFA 90 mcg/actuation aerosol inhaler RxNorm: 151073 2 Puff(s) INH QID 018 2017 Inactive Aleve 220 mg capsule RxNorm: 7692950 1 Capsule(s) PO BID 018 2018 Inactive ranitidine 150 mg tablet RxNorm: 464132 1 Tablet(s) PO BID 018 2017 Inactive gabapentin 300 mg capsule RxNorm: 884676 1 Capsule(s) PO TID as needed 018 2017 Inactive atorvastatin 20 mg tablet RxNorm: 155277 1 Tablet(s) PO QHS 2017 Inactive True Metrix Glucose Test Strip RxNorm: 1 Test Strips Miscellaneous QAM 018 2017 Inactive 50/container Calcium 600-D3 Plus 600 mg calcium-800 unit-50 mg tablet RxNorm: 1 Tablet(s) PO daily take an additonal tablet for itching. 018 2017 Inactive hydrochlorothiazide 12.5 mg tablet RxNorm: 673431 1 Tablet(s) PO QAM 018 2017 Inactive Flintstones Complete (iron) 18 mg iron chewable tablet RxNorm: 1 Tablet(s) PO daily 018 2017 Inactive True Metrix Glucose Meter RxNorm: miscellaneous 019 2018 Inactive sertraline 50 mg tablet RxNorm: 914890 1 Tablet(s) PO daily 020 2019 Inactive loperamide 2 mg tablet RxNorm: 681220 oral 019 2018 Inactive d-mannose oral powder RxNorm: PO 018 2021 Inactive Symbicort 160 mcg-4.5 mcg/actuation HFA aerosol inhaler RxNorm: 1557279 2 Puff(s) INH BID 019 2018 Inactive Medication Administered No Medication Administered data Procedures Procedure Codes Date Patient General Health Asses semnt Compared to one year ago, how would you rate your health in general?/the same CPT-4: PGHAUnknown 08/11/2022 Rattan Fany Assessment CPT-4: DSWA 04/02 Patient Health [...] CPT-4: VACP Fall Risk Assessment SNOMED CT: 53509543 4 CPT-4: DFRA 01/13/2021 Rattan Fany Assessment CPT-4: DSWA 12/01 Urinalysis, dip stick CPT-4: 84549 09/24/2020 Patient Health Questionnaire CPT-4: DPHQ Electrocardiogram CPT-4: 60862 05/14/2020 Tobacco Assessment/Screening CPT-4: TCA Fall Risk Assessment SNOMED CT: 16699598 4 CPT-4: DFRA 01/01/2020 Functional Assessment CPT-4: DFA 01/01/2020 Rattan Fany Assessment CPT-4: DSWA 11/04 Patient Health Questionnaire CPT-4: DPHQ Rattan Fany Assessment CPT-4: DSWA 10/03 Hypertension CPT-4: HTN 10/17/2019 Fall Risk Assessment OMED CT: 54107699 4 CPT-4: DFRA 09/19/2019 Functional Assessment CPT-4: DFA 09/19/2019 Urinalysis, dip stick CPT-4: 43147 06/21/2019 Tobacco Assessment/Screening CPT-4: TCA Patient Health Questionnaire CPT-4: DPHQ AHA/REBECCA Classification Assessment CPT-4: DAHA 04/25/2019 Controlled Substance Report CPT-4: CTRSU 04/03 Urinalysis, dip stick CPT-4: 15064 03/28/2019 Urinalysis, dip stick CPT-4: 00644 03/28/2019 S6W-Zwzesulaghiaxzc CPT-4: 05610 Unknown D5B-Boecnvruhdtjuau CPT-4: 84182 Unknown X6J-Uokghbsyouhcjxv CPT-4: 85405 Unknown J6V-Wwqxckssbbxmnjo CPT-4: 78513 Unknown U0S-Mocvqklacktlpje CPT-4: 47780 Unknown J7H-Xggporzixdcxqgx CPT-4: 77729 Unknown S7U-Rthxfphbqetvbtl CPT-4: 06815 Unknown D8P-Jqhfsdidoqsmggw CPT-4: 22960 Unknown A6I-Zxfqipchzjcagtx CPT-4: 84844 Unknown Y8P-Vaklvbwwcietdrg CPT-4: 46253 Unknown Gynecology Referral SNOMED CT: 551547848 CPT-4: R14 Unknown Reason For Visit No Reason For Visit data Plan of Care Planned Activity Notes Codes Status Date Patient Education: Patient Medication Summary Completed 08/11/2022 Appointment: Anna Culver WPtel: [address] [place] [address] E410 06/23/2022 Appointment: Chivo Bishop WPtel: [address] [place] [address] E410 04/19/2022 Appointment: Chivo Bishop WPtel: [address] [place] [address] E410 02/11/2022 Appointment: Mikey Nair WPtel: [address] [facility] [address] [id number] [place] E410 12/03/2021 Appointment: Chivo Bishop WPtel: [address] [place] [address] E410 11/02/2021 Appointment: Chivo Bishop WPtel: [address] [place] [address] E410 10/07/2021 Appointment: Chivo Bishop WPtel: [address] [place] [address] ETV 09/10/2021 Appointment: Chivo Bishop WPtel: [address] [place] [address] ETV 08/13/2021 Appointment: Chivo Bishop WPtel: [address] [place] [address] ETV 07/06/2021 Appointment: Chivo Bishop WPtel: [address] [place] [address] PHTV 06/10/2021 Appointment: Anna Culver WPtel: [address] [place] [address] ETV 06/02/2021 Appointment: Chivo Bishop WPtel: [address] [place] [address] ETV 05/20/2021 Appointment: Anna Culver WPtel: [address] [place] [address] ETV 04/28/2021 Appointment: Chivo Bishop WPtel: [id number] [place] [address] ETV 04/15/2021 Appointment: Anna Culver WPtel: [address] [place] [address] E410 04/01/2021 Appointment: Anna Culver WPtel: [address] [place] [address] ETV 03/24/2021 Appointment: Anna Culver WPtel: [address] [place] [address] ETV 03/13/2021 Appointment: Anna Culver WPtel: [address] [place] [address] E410 02/11/2021 Appointment: Chivo Bishop WPtel: [address] [place] [address] E410 01/29/2021 Appointment: Anna Culver WPtel: [address] [place] [address] ETV 01/13/2021 Appointment: Anna Culver WPtel: [address] [place] [address] E410 12/17/2020 Appointment: Chivo Bishop WPtel: [address] [place] [address] ETV 11/28/2020 Appointment: Anna Culver WPtel: [address] [place] [address] ETV 11/24/2020 Appointment: Anna Culver WPtel: [address] [place] [address] E410 10/29/2020 Appointment: Anna Culver WPtel: [address] [place] [address] E410 09/24/2020 Appointment: Anna Culver WPtel: [address] [place] [address] ETV 08/26/2020 Appointment: Anna Culver WPtel: [address] [place] [address] ETV 08/19/2020 Appointment: Anna Culver WPtel: [address] [place] [address] ETV 07/22/2020 Appointment: Anna Culver WPtel: [address] [place] [address] ETV 07/08/2020 Appointment: Gianna Birmingham: [address] [place] ECHO 07/02/2020 Appointment: Anna Culver WPtel: [address] [place] [address] E452 06/11/2020 Appointment: Anna Culver WPtel: [address] [place] [address] E452 05/14/2020 Appointment: Anna Culver WPtel: [address] [place] [address] E452 04/17/2020 Appointment: Anna Culver WPtel: [address] [place] [address] E452 03/21/2020 Appointment: Anna Culver WPtel: [address] [place] [address] E452 02/14/2020 Appointment: Anna Culver WPtel: [address] [place] [address] [place] E452 01/24/2020 Appointment: Anna Culver WPtel: [address] [place] [address] E452 01/01/2020 Appointment: Anna Culver WPtel: [address] [place] [address] [place] E452 11/28/2019 Appointment: Anna Culver WPtel: [address] [facility] [address] [place] [address] E452 10/17/2019 Appointment: Anna Culver WPtel: [address] [place] [address] E452 09/19/2019 Appointment: Sudha Hernadez WPtel: [address] [place] [address] [id number] E452 07/04/2019 Appointment: Sudha Hernadez WPtel: [address] [place] [address] [id number] E452 06/21/2019 Appointment: Charlene Oropeza WPtel: [address] [place] [address] [id number] E452 05/24/2019 Appointment: Mallory Delgado E452 04/27/2019 Appointment: Charlene Oropeza WPtel: [address] [place] [address] [id number] E452 04/25/2019 Appointment: Rasta Palafox WPtel: [address] [facility] [id number] E452 03/28/2019 Appointment: Rasta Palafox WPtel: [address] [place] [address] [id number] E452 02/14/2019 Appointment: Rasta Palafox WPtel: [address] [place] [address] [id number] E452 01/31/2019 Appointment: Rasta Palafox WPtel: [address] [place] [address] [id number] E420 12/27/2018 Referral: Pending Gynecology Referral Information Referral Processed Referral: Pending Pulmonolog y Referral Information Referral Processed Referral: Pending Psychiatry Referral Information Referral Initiated Referral: Pending Respirator y Services Referral Information Referral Initiated Referral: Pending Ophthalmology Referral Information Referral Initiated Referral: [facility] WPtel: [address] [facility] [address] [facility] [employer] placed a call out to the patient to notify her that it has been recommended that she be seen by 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 Patient agreed to be seen, does not have a provider of choice and no transportation issues. [employer] faxed referral and clinical notes to [facility] in [place], [place] near the patient's home. Patient to [...] seen and prefers a provider in the [place] or [place] area. [employer] placed a call out to everyone listed in the area and the only location that was able to accept the patient's insurance was [address] [id number] and spoke with Maylin. Maylin asked that the patient's referral, face sheet and visit notes be faxed to . [employer] faxed over requested documents. Patient appointment confirmation letter generated and mailed to her home address. Patient to call to schedule an appointment. Processed Referral: Kathryn Neurolog y WPtel: [address] [facility] [address] [place], [place] [id number] [place] Patient notified that it has been advised that she be seen by Neurology. Patient agreed to be seen and prefers to be seen by a provider in the [place], [place] area. Patient denies any concerns with transportation, and prefers to schedule her own appointment. [employer] placed a call out to [facility] and spoke with Neeraj Mcfarland: who confirmed that their office is able to accept new patients and the patient's insurance. After confirming the providers fax number, proposal lead writer faxed over the patient's referral, and [...]
--- OUTSIDE RECORDS SUMMARY | 2022-12-26 20:00 | XMS_ITS | CCD ---
Author Name Darrell Carrion Address [address] [place] [address] Phone Organization [facility] Phone Care Team Providers Care Flex O Writer Operator Name Role Phone Anna Culver NP Primary Care Provider Unav ailable Unavailable Chronic Care Management Unavaila ble Summary Purpose DataExchange Insurance Providers Payer name Policy type / Coverage type Covered green party ID Effective Begin Date Effective End Date SUKI MAYO [id number] Unknown Unknown Family history Mother Diagnosis Age [...] Unknown Disability 05/31/[address]: 003528304 Has never s moked or chewed tobacco 05/31/[address]: 856741612 Never drinks alco hol 05/31/2018 Has the patient ever used illegal drugs? Unknown Has never used illegal drugs 05/31/2018 DNR Order/ Advanced Directive Unknown Full Code 05/31/2018 Allergies, Adverse Reactions, Alerts Substance Reaction Codes Entered Date Inactivated Date Status OxyContin itch, RxNorm: 093097 01/13/2021 No Inactive Da te Active *No [...] neuropathy ICD-10: E11.42 ICD-9: 250.60 11/28/2019 Active Asthma ICD-10: J45.909 ICD-9: 493.90 08/08/2018 Active Hypertensive heart disease ICD-10: I11.9 ICD-9: 402.90 12/03/2021 Active (Z00.00-V70.9) Encounter for general adult medical examination without abnormal findings ICD-10: Z00.00 ICD-9: V70.9 02/11/2022 Inactive Abnormal electrocardiogram [ ECG] [EKG] ICD-10: R94.31 ICD-9: 794.31 05/30/2018 Inactive Abscess ICD-10: L02.91 ICD-9: 682.9 04/21/2022 Inactive Ankle sprain ICD-10: S93.409A ICD-9: 845.00 07/31/2022 Inactive Encounter for immunization ICD-10: Z23 ICD-9: V04.81 08/17/2022 Inactive Encounter for screening for tobacco use ICD-10: Z01.89 ICD-9: V72.85 2022 Inactive Fungal infection of skin ICD-10: B36.9 ICD-9: 111.9 08/17/2022 Inactive History of bladder surgery ICD-10: Z98.8 90 ICD-9: V45.89 01/13/2021 Inactive Influenza vaccine refused ICD-10: Z28.21 ICD-9: V64.06 06/23/2022 Inactive Open wound of right middle finger ICD-10 : S61.A ICD-9: 883.0 2022 Inactive Adult BMI 50.0-59.9 kg/sq m ICD-10: Z68. 43 ICD-9: V85.43 05/30/2018 Active Hypertension ICD-10: I10 ICD-9: 401.9 12/03/2021 Active Post-traumatic stress disord er, unspecified ICD-10: F43.10 ICD-9: 309.81 09/05/2018 Active Adjustment disorder with mix ed anxiety and depressed mood ICD-10: F43.23 ICD-9: 309.28 09/05/2018 Active Hypothyroid ICD-10: E03.9 ICD-9: 244.9 09/05/2018 Active Hyperlipidemia, mixed ICD-10: E78.2 ICD-9: 272.2 12/03/2021 Active Allergic rhinitis ICD-10: J30.9 ICD-9: 477.9 [...] R74.8 ICD-9: 790.5 01/29/2021 Resolved Encounter for screening, unspecified ICD-10: Z13.9 ICD-9: V82.9 09/05/2018 Resolved Family history of seizures ICD-10: Z84.8 9 ICD-9: V19.8 04/28/2021 Resolved Hyperlipidemia, unspecified ICD-10: E78. 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 program admin (current) use of non-steroidal anti-inflammatories (NSAID) ICD-10: Z79.1 ICD-9: V58.64 06/13/2018 Resolved Patient Not Seen ICD-10: UXZ.01 ICD-9: XZ0.1 04/27/2019 Resolved Patient not seen ICD-10: UXZ.01 ICD-9: UXZ.01 09/10/2021 Resolved Upper respiratory infection ICD-10: J06. 9 ICD-9: 465.9 06/02/2021 Resolved Syncope and collapse ICD-10: R55 ICD-9: 780.2 01/01/2020 Active Urinary retention with incom plete bladder emptying ICD-10: R33.9 ICD-9: 788.21 01/13/2021 Active Apnea, not elsewhere classified ICD-10: R06.81 ICD-9: 786.03 01/31/2019 Inactive Chest pain, unspecified ICD-10: R07.9 ICD-9: 786.50 11/29/2018 Inactive Chronic kidney disease, unspecified ICD- 10: N18.9 ICD-9: 585.9 06/21/2019 Inactive Encounter for immunization ICD-10: Z23 ICD-9: V03.9 04/25/2019 Inactive Encounter for preprocedural cardiovascular examination ICD-10: Z01.810 ICD-9: V72.81 03/28/2019 Inactive Headache ICD-10: R51 ICD-9: 784.0 10/03/2018 Inactive Other shelter (current) dr sharma therapy ICD-10: Z79.899 ICD-9: V58.69 04/25/2019 Inactive Type 2 diabetes mellitus wit hout complications ICD-10: E11.9 ICD-9: 250.00 10/03/2018 Inactive Wheezing ICD-10: R06.2 ICD-9: 786.07 08/08/2018 Inactive Abnormal urine finding ICD-10: R82.90 ICD-9: 791.9 09/24/2020 Resolved Abrasion of toe ICD-10: S90.416A ICD-9: 917.0 02/14/2020 Resolved Antoine eye ICD-10: H10.029 ICD-9: 372.03 12/29/2019 Resolved [...] incontinence ICD-10: N39.46 ICD-9: 788.33 05/24/2019 Active Medications Medication Codes Instructions Start Date Stop Date Status Fill Instructions Ozempic 1 mg/dose (4 mg/3 mL) subcutaneous pen injector RxNorm: 0268272 USE 1 UNIT DOSE SUBCUTANEOUSLY ON TUE OF EACH WEEK 023 2022 Inactive omeprazole 40 mg capsule,delayed release RxNorm: 848535 Take 1 Capsule(s) Oral every night at bedtime 023 2022 Inactive gabapentin 300 mg capsule RxNorm: 104117 Take 1 Capsule(s) Oral three times a day 023 2022 Inactive montelukast 10 mg tablet RxNorm: 722153 Take 1 Tablet(s) Oral every day 023 2022 Inactive omeprazole 20 mg capsule,delayed release RxNorm: 144666 Take 1 Capsule(s) Oral every evening 022 2022 Inactive Alcohol Prep Pads RxNorm: 628173 USE EACH MORNING 022 2021 Inactive E11.42 clotrimazole 1 % topical cream RxNorm: 190473 Apply 1 Application Topical two times a day as needed apply to affected area(s) twice daily until healed 2021 Inactive Victoza 2-Sebastián 0.6 mg/0.1 mL (18 mg/3 mL) subcutaneous pen injector RxNorm: 143747 Inject 0.6-1.8 Milligram(s) Subcutaneous once a week Inject 0.6mg/0.1ml week one, 1.2mg/0.2ml week two, 1.8/0.3ml weekly thereafter 022 2021 Inactive ibuprofen 800 mg tablet RxNorm: 557704 Take 1 Tablet(s) Oral Q8H as needed for pain take with food No Stop Date Active Ozempic 1 mg/dose (4 mg/3 mL) subcutaneous pen injector RxNorm: 5873098 Take 1 Unit Dose Subcutaneous QWeek Tuesday 022 2021 Inactive lisinopril 2.5 mg tablet RxNorm: 206917 Take 1 Tablet(s) Oral every day 022 2021 Inactive lisinopril 2.5 mg tablet RxNorm: 262535 Take 1 Tablet(s) Oral every day 022 2022 Inactive hydrochlorothiazide 25 mg tablet RxNorm: 208817 Take 1 Tablet(s) Oral every day 022 2021 Inactive Ozempic 1 mg/dose (4 mg/3 mL) subcutaneous pen injector RxNorm: 5006733 Take 1 Unit Dose Subcutaneous QWeek 022 2021 Inactive famotidine 20 mg tablet RxNorm: 263193 Take 1 Tablet(s) Oral every morning 022 2021 Inactive levothyroxine 50 mcg tablet RxNorm: 215757 Take 1 Tablet(s) Oral every day 022 2021 Inactive atorvastatin 20 mg tablet RxNorm: 084663 Take 1 Tablet(s) Oral every night at bedtime 2021 Inactive Cleocin T 1 % lotion RxNorm: 408939 Take 2 Gram(s) Topical every day 022 2021 Inactive Cleocin T 1 % lotion RxNorm: 015928 Take 2 Gram(s) Topical every day 022 2021 Inactive Ozempic 1 mg/dose (4 mg/3 mL) subcutaneous pen injector RxNorm: 3038090 Take 1 Unit Dose Subcutaneous QWeek 022 2021 Inactive Ozempic 0.25 mg or 0.5 mg (2 mg/1.5 mL) subcutaneous pen injector RxNorm: 0101585 INJECT 0.5 MGS SUBCUTANEOUSLY EVERY WEEK 022 2021 Inactive omeprazole 20 mg capsule,delayed release RxNorm: 980739 Take 1 Capsule(s) Oral every evening 2021 Inactive levothyroxine 50 mcg tablet RxNorm: 759139 Take 1 Tablet(s) Oral every day 2021 Inactive atorvastatin 20 mg tablet RxNorm: 252519 Take 1 Tablet(s) Oral every night at bedtime 2021 Inactive This refill negates all other refills of this medication lisinopril 2.5 mg tablet RxNorm: 073963 Take 1 Tablet(s) Oral every day 2021 Inactive gabapentin 300 mg capsule RxNorm: 888768 Take 1 Capsule(s) Oral three times a day 022 2021 Inactive montelukast 10 mg tablet RxNorm: 389503 Take 1 Tablet(s) Oral every day 022 2021 Inactive Myrbetriq 50 mg tablet,extended release RxNorm: 4337449 1 Tablet(s) Oral every day No Stop Date Active cholecalciferol (vitamin D3) 50 mcg (2,000 unit) tablet RxNorm: 076842 Take 1 Tablet(s) Oral every day 2022 Inactive Ozempic 0.25 mg or 0.5 mg (2 mg/1.5 mL) subcutaneous pen injector RxNorm: 3224136 inject 0.5 milligrams subcutaneously every week 2021 Inactive Ozempic 0.25 mg or 0.5 mg (2 mg/1.5 mL) subcutaneous pen injector RxNorm: 7884441 Take 0.5 Capsule(s) Injection once a week 2021 Inactive omeprazole 20 mg capsule,delayed release RxNorm: 526656 Take 1 Capsule(s) Oral every evening 2020 Inactive Ozempic 0.25 mg or 0.5 mg (2 mg/1.5 mL) subcutaneous pen injector RxNorm: 2635246 Take 0.25 Milligram(s) Subcutaneous once a week 2021 Inactive Easy Touch Alcohol Prep Pads RxNorm: 122830 USE DIRECTED EACH MORNING 2021 Inactive Probiotic 10 billion cell capsule RxNorm: 5405995 Take 1 Capsule(s) Oral every day 2021 Inactive levothyroxine 50 mcg tablet RxNorm: 565794 Take 1 Tablet(s) Oral every day 2020 Inactive Acid Out[employer] Fitness Trainer (famotidine) 20 mg tablet RxNorm: 535624 Take 1 Tablet(s) Oral every morning 2020 Inactive Heartburn Relief (famotidine) 10 mg tablet RxNorm: 589845 Take 1 Tablet(s) Oral QAM 2020 Inactive levothyroxine 50 mcg tablet RxNorm: 890816 Take 1 Tablet(s) Oral QD 2020 Inactive Singulair 10 mg tablet RxNorm: 520407 TAKE (1) TABLET BY MOUTH DAILY 021 2020 Inactive metformin 1,000 mg tablet RxNorm: 717403 1 Tablet(s) Oral two times a day 021 2021 Inactive lisinopril 2.5 mg tablet RxNorm: 103099 Take 1 Tablet(s) Oral every day 021 2020 Inactive hydrochlorothiazide 25 mg tablet RxNorm: 584930 Take 1 Tablet(s) Oral every day 021 2020 Inactive ondansetron 4 mg disintegrating tablet RxNorm: 722084 1 Tablet(s) Oral two times a day 021 2020 Inactive Sudafed 12 Hour 120 mg tablet,extended release RxNorm: 3774753 TAKE 1 TABLET BY MOUTH EVERY 12 HOURS NEEDED 2021 Inactive Heartburn Relief (famotidine) 10 mg tablet RxNorm: 886359 Take 1 Tablet(s) Oral every morning 021 2020 Inactive omeprazole 20 mg capsule,delayed release RxNorm: 351169 1 Capsule(s) Oral every evening 021 2020 Inactive sertraline 100 mg tablet RxNorm: 996127 2 Tablet(s) Oral every day 021 2020 Inactive levothyroxine 50 mcg tablet RxNorm: 183177 TAKE (1) TABLET BY MOUTH DAILY 021 2020 Inactive metformin 500 mg tablet RxNorm: 069306 1 Tablet(s) Oral two times a day take with 500mg to equal 1000mg 021 2020 Inactive gabapentin 300 mg capsule RxNorm: 477894 TAKE 1 CAPSULE BY MOUTH THREE TIMES A DAY 021 2020 Inactive lisinopril 2.5 mg tablet RxNorm: 691888 TAKE 1 TABLET BY MOUTH DAILY 021 2020 Inactive gabapentin 300 mg capsule RxNorm: 326319 TAKE 1 CAPSULE BY MOUTH THREE TIMES A DAY 021 2020 Inactive Singulair 10 mg tablet RxNorm: 019011 TAKE (1) TABLET BY MOUTH DAILY 021 2020 Inactive metformin 1,000 mg tablet RxNorm: 815372 1 Tablet(s) Oral two times a day 021 2020 Inactive atorvastatin 40 mg tablet RxNorm: 037509 1 Tablet(s) Oral every day 2020 Inactive omeprazole 20 mg capsule,delayed release RxNorm: 745245 1 Capsule(s) Oral every evening 021 2020 Inactive famotidine 10 mg tablet RxNorm: 909356 1 Tablet(s) Oral every morning 021 2020 Inactive Alcohol Prep Pads RxNorm: 276712 USE EACH MORNING 021 2020 Inactive omeprazole 20 mg capsule,delayed release RxNorm: 780389 1 Capsule(s) Oral two times a day 2021 Inactive omeprazole 20 mg capsule,delayed release RxNorm: 777235 TAKE 1 CAPSULE BY MOUTH EVERY DAY 2021 Inactive Macrobid 100 mg capsule RxNorm: 596617 1 Capsule(s) Oral every 12 hours with food 2020 Inactive omeprazole 20 mg capsule,delayed release RxNorm: 267584 1 Capsule(s) Oral two times a day 2021 Inactive metformin 1,000 mg tablet RxNorm: 789455 1 Tablet(s) Oral two times a day 2020 Inactive start on September 11, 2020 metformin 500 mg tablet RxNorm: 708696 1 Tablet(s) Oral two times a day take with 500mg to equal 1000mg 2019 Inactive gabapentin 300 mg capsule RxNorm: 328938 TAKE 1 CAPSULE BY MOUTH THREE TIMES DAILY 2020 Inactive cetirizine 10 mg tablet RxNorm: 5739841 TAKE (1) TABLET BY MOUTH DAILY 2020 Inactive metformin 500 mg tablet RxNorm: 043260 1 Tablet(s) Oral two times a day 020 2019 Inactive loperamide 2 mg tablet RxNorm: 156232 1 Tablet(s) Oral as needed take one tablet after each loose stool, maximum of 8 tablets in 24 hours 020 2021 Inactive Sudafed 12 Hour 120 mg tablet,extended release RxNorm: 1978877 TAKE 1 TABLET BY MOUTH EVERY 12 HOURS NEEDED 020 2019 Inactive hydrochlorothiazide 25 mg tablet RxNorm: 651771 TAKE (1) TABLET BY MOUTH EVERY DAY 020 2019 Inactive omeprazole 20 mg capsule,delayed release RxNorm: 930128 TAKE 1 CAPSULE BY MOUTH EVERY DAY 020 2020 Inactive metformin 500 mg tablet RxNorm: 947205 1 Tablet(s) Oral every day 020 2019 Inactive True Metrix Glucose Test Strip RxNorm: 1 Test Strips Miscellaneous two times a day as needed No Stop Date Active metformin 500 mg tablet RxNorm: 192795 1 Tablet(s) Oral every day 2019 Inactive diclofenac sodium 75 mg tablet,delayed release RxNorm: 314342 1 Tablet(s) PO BID 020 2021 Inactive This refill negates all other refills of this medication Sudafed 12 Hour 120 mg tablet,extended release RxNorm: 5460200 TAKE 1 TABLET BY MOUTH EVERY 12 HOURS NEEDED 020 2019 Inactive True Metrix Glucose Test Strip RxNorm: 1 Test Strips Miscellaneous every morning 020 2019 Inactive 100/container True Metrix Glucose Test Strip RxNorm: 1 Test Strips Miscellaneous QA 020 2019 Inactive 100/container loperamide 2 mg tablet RxNorm: 563804 1 Tablet(s) Oral as needed take one tablet after each loose stool, maximum of 8 tablets in 24 hours 020 2019 Inactive cetirizine 10 mg tablet RxNorm: 7955668 1 Tablet(s) PO daily 2019 Inactive loperamide 2 mg tablet RxNorm: 606112 1 Tablet(s) Oral as needed take one tablet after each loose stool, maximum of 8 tablets in 24 hours 2019 Inactive quetiapine 100 mg tablet RxNorm: 090405 1 Tablet(s) Oral every night at bedtime 2019 Inactive levothyroxine 50 mcg tablet RxNorm: 972045 1 Tablet(s) PO daily 2020 Inactive gabapentin 300 mg capsule RxNorm: 905954 1 Capsule(s) PO TID 2019 Inactive levothyroxine 50 mcg tablet RxNorm: 324790 1 Tablet(s) PO daily 2019 Inactive lisinopril 2.5 mg tablet RxNorm: 431811 1 Tablet(s) PO daily 2020 Inactive gabapentin 300 mg capsule RxNorm: 206328 1 Capsule(s) PO TID 2019 Inactive cetirizine 10 mg tablet RxNorm: 9914164 1 Tablet(s) PO daily 2019 Inactive Singulair 10 mg tablet RxNorm: 609934 1 Tablet(s) PO daily 2020 Inactive gentamicin 0.3 % eye drops RxNorm: 804592 1 Drop(s) ophthalmic (eye) four times a day 2019 Inactive gentamicin 0.3 % eye drops RxNorm: 105976 1 Drop(s) ophthalmic (eye) four times a day 2019 Inactive gentamicin 0.3 % eye drops RxNorm: 889719 1 Drop(s) ophthalmic (eye) four times a day 2019 Inactive hydrochlorothiazide 25 mg tablet RxNorm: 043346 1 Tablet(s) Oral every day 2019 Inactive Sudafed 12 Hour 120 mg tablet,extended release RxNorm: 8754736 TAKE (1) TABLET BY MOUTH EVERY 12 HOURS NEEDED 2019 Inactive loperamide 2 mg tablet RxNorm: 368640 1 Tablet(s) Oral as needed take one tablet after each loose stool, maximum of 8 tablets in 24 hours 020 2019 Inactive loperamide 2 mg tablet RxNorm: 273373 1 Tablet(s) Oral as needed take one tablet after each loose stool, maximum of 8 tablets in 24 hours 020 2019 Inactive atorvastatin 40 mg tablet RxNorm: 444007 1 Tablet(s) Oral every day 2020 Inactive quetiapine 100 mg tablet RxNorm: 621611 1 Tablet(s) Oral every night at bedtime 2019 Inactive sertraline 100 mg tablet RxNorm: 513871 1 Tablet(s) Oral 2019 Inactive omeprazole 20 mg capsule,delayed release RxNorm: 053521 1 Capsule(s) Oral every day 2019 Inactive amoxicillin 250 mg capsule RxNorm: 215860 1 Capsule(s) Oral three times a day 2019 Inactive multivitamin with iron-mineral tablet RxNorm: 1 Tablet(s) Oral every day 2021 Inactive cetirizine 10 mg tablet RxNorm: 3627757 1 Tablet(s) PO daily 2019 Inactive This refill negates all other refills of this medication. Please do not auto refill Singulair 10 mg tablet RxNorm: 898979 1 Tablet(s) PO daily 2019 Inactive This refill negates all other refills of this medication gabapentin 300 mg capsule RxNorm: 042450 1 Capsule(s) PO TID 2019 Inactive lisinopril 2.5 mg tablet RxNorm: 945311 1 Tablet(s) PO daily 2019 Inactive levothyroxine 50 mcg tablet RxNorm: 831664 1 Tablet(s) PO daily 2019 Inactive This refill negates all other refills of this medication hydrochlorothiazide 25 mg tablet RxNorm: 989585 1 Tablet(s) Oral every day 020 2019 Inactive fenugreek seed extract 500 mg capsule RxNorm: 1 Capsule(s) Oral three times a day 2021 Inactive Alcohol Prep Pads RxNorm: 981515 1 Patch TOP QAM 2020 Inactive loperamide 2 mg tablet RxNorm: 245217 1 Tablet(s) Oral as needed take one [...] 2019 Inactive hydrochlorothiazide 25 mg tablet RxNorm: 188143 1 Tablet(s) Oral every day 019 2019 Inactive Sudafed 12 Hour 120 mg tablet,extended release RxNorm: 6241095 1 Tablet(s) Oral every 12 hours as needed 019 2018 Inactive omeprazole 20 mg capsule,delayed release RxNorm: 276415 1 Capsule(s) Oral every day 019 2019 Inactive Sudafed 12 Hour 120 mg tablet,extended release RxNorm: 9909871 1 Tablet(s) Oral every 12 hours as needed 019 2018 Inactive pantoprazole 40 mg tablet,delayed release RxNorm: 518572 1 Tablet(s) Oral every day 019 2018 Inactive discontinue any other H2Blkr. and PPI albuterol sulfate 2.5 mg/3 mL (0.083 %) solution for nebulization RxNorm: 365518 1 Vial Inhalation every four hours as needed as needed for dyspnea 019 2019 Inactive 60/box. This refill negates all other refills of this medication. Please do not fill early. Please do not auto refill. Symbicort 160 mcg-4.5 mcg/actuation HFA aerosol inhaler RxNorm: 9376235 2 Puff(s) INH BID No Stop Date Active Alcohol Prep Pads RxNorm: 504315 1 Patch TOP QAM 019 2019 Inactive Ventolin HFA 90 mcg/actuation aerosol inhaler RxNorm: 000581 2 Puff(s) INH QID 019 2019 Inactive Please do not fill early. Please do not auto refill. This refill negates all other refills of this medication True Metrix Glucose Test Strip RxNorm: 1 Test Strips Miscellaneous QAM 019 2019 Inactive 100/container atorvastatin 40 mg tablet RxNorm: 526843 1 Tablet(s) Oral every day 019 2019 Inactive buspirone 7.5 mg tablet RxNorm: 337749 1 Tablet(s) PO BID 019 2020 Inactive This refill negates all other refills of this medication hydrochlorothiazide 12.5 mg tablet RxNorm: 604208 1 Tablet(s) PO QAM 019 2019 Inactive levmetamfetamine 50 mg nasal inhaler RxNorm: 1 Unit(s) NASAL Q3-4H Do not use more than every 3 hours or 8 times/24hours 019 2021 Inactive Please do not auto refill. This refill negates all other refills of this medication Ventolin HFA 90 mcg/actuation aerosol inhaler RxNorm: 655961 2 Puff(s) INH QID 019 2018 Inactive Please do not fill early. Please do not auto refill. This refill negates all other refills of this medication Singulair 10 mg tablet RxNorm: 298564 1 Tablet(s) PO daily 019 2019 Inactive This refill negates all other refills of this medication cetirizine 10 mg tablet RxNorm: 8103080 1 Tablet(s) PO daily 019 2019 Inactive This refill negates all other refills of this medication. Please do not auto refill levothyroxine 50 mcg tablet RxNorm: 825406 1 Tablet(s) PO daily 019 2019 Inactive This refill negates all other refills of this medication diclofenac sodium 75 mg tablet,delayed release RxNorm: 619180 1 Tablet(s) PO BID 019 2019 Inactive This refill negates all other refills of this medication ranitidine 150 mg tablet RxNorm: 775943 1 Tablet(s) PO BID 019 2018 Inactive This refill negates all other refills of this medication Calcium 600-D3 Plus (mag-zinc) 600 mg calcium-800 unit-50 mg tablet RxNorm: 1 Tablet(s) PO daily take an additonal tablet for itching. 2018 Inactive This refill negates all other refills of this medication albuterol sulfate 2.5 mg/3 mL (0.083 %) solution for nebulization RxNorm: 548374 1 Vial INH QID 2018 Inactive 60/box. This refill negates all other refills of this medication. Please do not fill early. Please do not auto refill. lisinopril 2.5 mg tablet RxNorm: 301675 1 Tablet(s) PO daily 019 2019 Inactive gabapentin 300 mg capsule RxNorm: 304171 1 Capsule(s) PO TID 019 2019 Inactive atorvastatin 20 mg tablet RxNorm: 226825 1 Tablet(s) PO QHS 019 2018 Inactive This refill negates all other refills of this medication TRUEplus Lancets 30 gauge RxNorm: 1 Lancets Miscellaneous QAM 2018 Inactive 100/box gabapentin 300 mg capsule RxNorm: 278464 1 Capsule(s) PO TID 019 2018 Inactive Flmarktones Complete (iron) 18 mg iron chewable tablet RxNorm: 1 Tablet(s) PO daily 019 2021 Inactive This refill negates all other refills of this medication gabapentin 300 mg capsule RxNorm: 717782 1 Capsule(s) PO TID as needed 2018 Inactive True Metrix Glucose Test Strip RxNorm: 1 Test Strips Miscellaneous QAM 019 2018 Inactive 100/container Alcohol Prep Pads RxNorm: 915477 1 Patch TOP QAM 2018 Inactive TRUEplus Lancets 30 gauge RxNorm: 1 Lancets Miscellaneous QAM 019 2018 Inactive 100/box lisinopril 2.5 mg tablet RxNorm: 281682 1 Tablet(s) PO daily 019 2018 Inactive ranitidine 150 mg tablet RxNorm: 641809 1 Tablet(s) PO BID 2018 Inactive This refill negates all other refills of this medication albuterol sulfate 2.5 mg/3 mL (0.083 %) solution for nebulization RxNorm: 555803 1 Vial INH QID 2018 Inactive 60/box. [...] this medication gabapentin 300 mg capsule RxNorm: 370856 1 Capsule(s) PO TID as needed 019 2018 Inactive atorvastatin 20 mg tablet RxNorm: 862786 1 Tablet(s) PO QHS 019 2018 Inactive This refill negates all other refills of this medication trazodone 50 mg tablet RxNorm: 548834 1 Tablet(s) PO QHS 019 2018 Inactive This refill negates all other refills of this medication Ventolin HFA 90 mcg/actuation aerosol inhaler RxNorm: 214416 2 Puff(s) INH QID 019 2018 Inactive Please do not fill early. Please do not auto refill. This refill negates all other refills of this medication Calcium 600-D3 Plus 600 mg calcium-800 unit-50 mg tablet RxNorm: 1 Tablet(s) PO daily take an additonal tablet for itching. 019 2018 Inactive This refill negates all other refills of this medication Singulair 10 mg tablet RxNorm: 643707 1 Tablet(s) PO daily 019 2018 Inactive This refill negates all other refills of this medication buspirone 7.5 mg tablet RxNorm: 083614 1 Tablet(s) PO BID 019 2018 Inactive This refill negates all other refills of this medication diclofenac sodium 75 mg tablet,delayed release RxNorm: 177749 1 Tablet(s) PO BID 019 2018 Inactive This refill negates all other refills of this medication hydrochlorothiazide 12.5 mg tablet RxNorm: 556616 1 Tablet(s) PO QAM 019 2018 Inactive metoprolol succinate ER 50 mg tablet,extended release 24 hr RxNorm: 678243 1 Tablet(s) PO daily 019 2018 Inactive This refill negates all other refills of this medication levothyroxine 50 mcg tablet RxNorm: 429773 1 Tablet(s) PO daily 019 2018 Inactive This refill negates all other refills of this medication cetirizine 10 mg tablet RxNorm: 5264348 1 Tablet(s) PO daily 019 2018 Inactive This refill negates all other refills of this medication. Please do not auto refill Flintstones Complete (iron) 18 mg iron chewable tablet RxNorm: 1 Tablet(s) PO daily 2018 Inactive This refill negates all other refills of this medication buspirone 7.5 mg tablet RxNorm: 212842 1 Tablet(s) PO BID 019 2018 Inactive cetirizine 10 mg tablet RxNorm: 9865628 1 Tablet(s) PO daily 2018 Inactive Guaiasorb DM 10 mg-100 mg/5 mL oral liquid RxNorm: 213033 10 Milliliter(s) PO As needed every 4 hr 2018 Inactive Vicks Vaporub 4.7 %-1.2 %-2.6 % topical ointment RxNorm: 4989180 1 Application TOP TID 2018 Inactive levmetamfetamine 50 mg nasal inhaler RxNorm: 1 Unit(s) NASAL Q3-4H 2017 Inactive sertraline 50 mg tablet RxNorm: 596618 1 Tablet(s) PO daily 2018 Inactive Please note dose trazodone 50 mg tablet RxNorm: 404608 1 Tablet(s) PO QHS 018 2018 Inactive sertraline 50 mg tablet RxNorm: 981628 1 Tablet(s) PO daily 2017 Inactive amoxicillin 500 mg tablet RxNorm: 866245 1 Tablet(s) PO Q12H 2017 Inactive albuterol sulfate 2.5 mg/3 mL (0.083 %) solution for nebulization RxNorm: 985908 1 Vial INH QID 2018 Inactive 60/box. Please do not fill early. Please do not auto refill. Prozac 10 mg capsule RxNorm: 722751 1 Capsule(s) PO daily 2017 Inactive buspirone 7.5 mg tablet RxNorm: 208058 1 Tablet(s) PO BID 018 2018 Inactive gabapentin 300 mg capsule RxNorm: 547857 1 Capsule(s) PO TID as needed 2018 Inactive hydrochlorothiazide 12.5 mg tablet RxNorm: 925001 1 Tablet(s) PO QAM 018 2018 Inactive ranitidine 150 mg tablet RxNorm: 509816 1 Tablet(s) PO BID 018 2018 Inactive Macrobid 100 mg capsule RxNorm: 284522 1 Capsule(s) PO Q12H 018 2017 Inactive Singulair 10 mg tablet RxNorm: 369795 1 Tablet(s) PO daily 018 2018 Inactive Ventolin HFA 90 mcg/actuation aerosol inhaler RxNorm: 3087077 2 Puff(s) INH QID 018 2018 Inactive Singulair 10 mg tablet RxNorm: 549928 1 Tablet(s) PO daily 018 2017 Inactive buspirone 7.5 mg tablet RxNorm: 111276 1 Tablet(s) PO BID 018 2017 Inactive Prozac 10 mg capsule RxNorm: 999437 1 Capsule(s) PO daily 018 2017 Inactive diclofenac sodium 75 mg tablet,delayed release RxNorm: 372334 1 Tablet(s) PO BID 018 2017 Inactive lisinopril 2.5 mg tablet RxNorm: 597071 1 Tablet(s) PO daily 018 2017 Inactive Neilmed Pediatric Sinus Rinse Refill packet RxNorm: 1 Unit Dose NASAL PRN 018 2021 Inactive metoprolol succinate ER 50 mg tablet,extended release 24 hr RxNorm: 717286 1 Tablet(s) PO daily 018 2017 Inactive levothyroxine 50 mcg tablet RxNorm: 674673 1 Tablet(s) PO daily 018 2017 Inactive TRUEplus Lancets 30 gauge RxNorm: 1 Lancets Miscellaneous QAM 018 2017 Inactive 100/box Ventolin HFA 90 mcg/actuation aerosol inhaler RxNorm: 618992 2 Puff(s) INH QID 018 2017 Inactive Aleve 220 mg capsule RxNorm: 5492738 1 Capsule(s) PO BID 018 2018 Inactive ranitidine 150 mg tablet RxNorm: 895356 1 Tablet(s) PO BID 018 2017 Inactive gabapentin 300 mg capsule RxNorm: 963727 1 Capsule(s) PO TID as needed 018 2017 Inactive atorvastatin 20 mg tablet RxNorm: 320539 1 Tablet(s) PO QHS 018 2017 Inactive True Metrix Glucose Test Strip RxNorm: 1 Test Strips Miscellaneous QAM 018 2017 Inactive 50/container Calcium 600-D3 Plus 600 mg calcium-800 unit-50 mg tablet RxNorm: 1 Tablet(s) PO daily take an additonal tablet for itching. 018 2017 Inactive hydrochlorothiazide 12.5 mg tablet RxNorm: 906480 1 Tablet(s) PO QAM 018 2017 Inactive Flintstones Complete (iron) 18 mg iron chewable tablet RxNorm: 1 Tablet(s) PO daily 018 2017 Inactive True Metrix Glucose Meter RxNorm: miscellaneous 019 2018 Inactive sertraline 50 mg tablet RxNorm: 528728 1 Tablet(s) PO daily 020 2019 Inactive loperamide 2 mg tablet RxNorm: 965484 oral 019 2018 Inactive d-mannose oral powder RxNorm: PO 018 2021 Inactive Symbicort 160 mcg-4.5 mcg/actuation HFA aerosol inhaler RxNorm: 0158531 2 Puff(s) INH BID 019 2018 Inactive Medication Administered No Medication Administered data Procedures Procedure Codes Date Patient General Health Asses semnt Compared to one year ago, how would you rate your health in general?/the same CPT-4: PGHAUnknown 12/24/2022 Patient Health Questionnaire CPT-4: DPHQ Pain Screening CPT-4: PAS 2022 Tobacco Assessment/Screening CPT-4: TCA Hypertension CPT-4: HTN 08/17/2022 Pierron Fany Assessment CPT-4: DSWA 04/02 Patient Health [...] CPT-4: VACP Fall Risk Assessment SNOMED CT: 77476790 4 CPT-4: DFRA 01/13/2021 Pierron Fany Assessment CPT-4: DSWA 12/01 Urinalysis, dip stick CPT-4: 51913 09/24/2020 Patient Health Questionnaire CPT-4: DPHQ Electrocardiogram CPT-4: 20481 05/14/2020 Tobacco Assessment/Screening CPT-4: TCA Fall Risk Assessment SNOMED CT: 27322884 4 CPT-4: DFRA 01/01/2020 Functional Assessment CPT-4: DFA 01/01/2020 Pierron Fany Assessment CPT-4: DSWA 11/04 Patient Health Questionnaire CPT-4: DPHQ Pierron Fany Assessment CPT-4: DSWA 10/03 Hypertension CPT-4: HTN 10/17/2019 Fall Risk Assessment SNOMED CT: 82686982 4 CPT-4: DFRA 09/19/2019 Functional Assessment CPT-4: DFA 09/19/2019 Urinalysis, dip stick CPT-4: 82366 06/21/2019 Tobacco Assessment/Screening CPT-4: TCA Patient Health Questionnaire CPT-4: DPHQ AHA/REBECCA Classification Assessment CPT-4: DAHA 04/25/2019 Controlled Substance Report CPT-4: CTRSU 04/03 Urinalysis, dip stick CPT-4: 20451 03/28/2019 Urinalysis, dip stick CPT-4: 13024 03/28/2019 H7K-Wgvwgjahedntjjs CPT-4: 43057 Unknown H0A-Azwawzlqjxxhucx CPT-4: 12781 Unknown O6Z-Jlqdavtgwtkqchk CPT-4: 75854 Unknown X3F-Vuntfayumhmsolf CPT-4: 30006 Unknown P0R-Graylzzvnzznjte CPT-4: 33502 Unknown K8R-Lmrfpqkumjusybh CPT-4: 69824 Unknown K2V-Xhjyjekdgkfrfuw CPT-4: 64644 Unknown Z9E-Uvucqlgakxctbcz CPT-4: 48306 Unknown C6O-Qfibvvrkiblvduz CPT-4: 56360 Unknown E3I-Sfytcxvdauhdfut CPT-4: 83503 Unknown D3C-Iyodelgcevufiqk CPT-4: 29433 Unknown Gynecology Referral SNOMED CT: 852073246 CPT-4: R14 Unknown Reason For Visit No Reason For Visit data Plan of Care Planned Activity Notes Codes Status Date Patient Education: Patient Medication Summary Completed 12/24/2022 Appointment: Anna Culver WPtel: [address] [place] [address] E410 11/23/2022 Appointment: Anna Culver WPtel: [address] [place] [address] E410 2022 Appointment: Anna Culver WPtel: [address] [place] [address] E410 08/17/2022 Appointment: nAna Culver WPtel: [address] [place] [address] E410 06/23/2022 Appointment: Chivo Bishop WPtel: [address] [place] [address] E410 04/19/2022 Appointment: Chivo Bishop WPtel: [address] [place] [address] E410 02/11/2022 Appointment: Mikey Nair WPtel: [address] [facility] 202b [id number] E410 12/03/2021 Appointment: Chivo Bisohp WPtel: [address] [place] [address] E410 11/02/2021 Appointment: Chivo Bishop WPtel: [address] [place] [address] E410 10/07/2021 Appointment: Chivo Bishop WPtel: [address] [place] [address] ETV 09/10/2021 Appointment: Chivo Bishop WPtel: [address] [place] [address] ETV 08/13/2021 Appointment: Chivo Bishop WPtel: [address] [place] [address] ETV 07/06/2021 Appointment: Chivo Bishop WPtel: [address] [place] [address] PHTV 06/10/2021 Appointment: Anna Culver WPtel: [address] [place] [address] ETV 06/02/2021 Appointment: Chivo Bishop WPtel: [address] [place] [address] ETV 05/20/2021 Appointment: Anna Culver WPtel: [address] [place] [address] ETV 04/28/2021 Appointment: Chivo Bishop WPtel: [address] [place] [address] ETV 04/15/2021 Appointment: Anna Culver WPtel: [address] [place] [address] E410 04/01/2021 Appointment: Anna Culver WPtel: [address] [place] [address] ETV 03/24/2021 Appointment: Anna Culver WPtel: [address] [place] [address] ETV 03/13/2021 Appointment: Anna Culver WPtel: [address] [place] [address] E410 02/11/2021 Appointment: Chivo Bishop WPtel: [address] [place] [address] E410 01/29/2021 Appointment: Anna Culver WPtel: [address] [place] [address] ETV 01/13/2021 Appointment: Anna Culver WPtel: [address] [place] [address] E410 12/17/2020 Appointment: Chivo Bishop WPtel: [address] [place] [address] ETV 11/28/2020 Appointment: Anna Culver WPtel: [address] [place] [address] ETV 11/24/2020 Appointment: Anna Culver WPtel: [address] [place] [address] E410 10/29/2020 Appointment: Anna Culver WPtel: [address] [place] [address] E410 09/24/2020 Appointment: Anna Culver WPtel: [phone] [place] [address] ETV 08/26/2020 Appointment: Anna Culver WPtel: [address] [place] [address] ETV 08/19/2020 Appointment: Anna Culver WPtel: [address] [place] [address] ETV 07/22/2020 Appointment: Anna Culver WPtel: [address] [place] [address] ETV 07/08/2020 Appointment: Gianna Birmingham: [facility] [address] [place] ECHO 07/02/2020 Appointment: Anna Culver WPtel: [address] [place] [address] E452 06/11/2020 Appointment: Anna Culver WPtel: [address] [place] [address] E452 05/14/2020 Appointment: Anna Culver WPtel: [address] [place] [address] E452 04/17/2020 Appointment: Anna Culver WPtel: [address] [place] [address] E452 03/21/2020 Appointment: Anna Culver WPtel: [address] [place] [address] [place] E452 02/14/2020 Appointment: Anna Culver WPtel: [address] [place] [address] [place] E452 01/24/2020 Appointment: Anna Culver WPtel: [address] [place] [address] E452 01/01/2020 Appointment: Anna Culver WPtel: [address] [place] [address] E452 11/28/2019 Appointment: Anna Culver WPtel: [address] [place] [address] E452 10/17/2019 Appointment: Anna Culver WPtel: [address] [place] [address] E452 09/19/2019 Appointment: Sudha Hernadez WPtel: [address] [place] [address] [id number] E452 07/04/2019 Appointment: Sudha Hernadez WPtel: [address] [place] [address] [id number] 06/21/2019 Appointment: Charlene Oropeza WPtel: [address] [place] [address] [id number] E452 05/24/2019 Appointment: Mallory Delgado E452 04/27/2019 Appointment: Charlene Oropeza WPtel: [address] [place] [address] [id number] E452 04/25/2019 Appointment: Rasta Palafox WPtel: [facility] [id number] E452 03/28/2019 Appointment: Rasta Palafox WPtel: [facility] [id number] E452 02/14/2019 Appointment: Rasta Palafox WPtel: [facility] [id number] E452 01/31/2019 Appointment: Rasta Palafox WPtel: [address] [facility] [id number] E420 12/27/2018 Referral: Pending Gynecology Referral Information Referral Processed Referral: Pending Pulmonolog y Referral Information Referral Processed Referral: Pending Psychiatry Referral Information Referral Initiated Referral: Pending Respirator y Services Referral Information Referral Initiated Referral: Pending Ophthalmology Referral Information Referral Initiated Referral: [facility] WPtel: [address] [facility] [address] Broaching Machine Set Up Operator placed a call out to the patient to notify her that it has been recommended that she be seen by 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 Patient agreed to be seen, does not have a provider of choice and no transportation issues. Broaching Machine Set Up Operator faxed referral and clinical notes to [facility] in [place], [place] near the patient's home. [...] seen and prefers a provider in the [place] or [place] area. Broaching Machine Set Up Operator placed a call out to everyone listed in the area and the only location that was able to accept the patient's insurance was [address] [phone] and spoke with Maylin. Maylin asked that the patient's referral, face sheet and visit notes be faxed to . Broaching Machine Set Up Operator faxed over requested documents. Patient appointment confirmation letter generated and mailed to her home address. Patient to call to schedule an appointment. [facility]ed [facility] W[facility]: [address] [facility] [address] [place], [place] [id number] Patient notified that it has been advised that she be seen by Neurology. Patient agreed to be seen and prefers to be seen by a provider in the [place], [place] area. Patient denies any concerns with transportation, and prefers to schedule her own appointment. Broaching Machine Set Up Operator placed a call out to [facility] and spoke with Neeraj P: who confirmed that their office is able to accept new patients and the patient's insurance. After confirming the providers fax number, functional tester typewriters faxed over the patient's referral, and most [...]
--- OUTSIDE RECORDS SUMMARY | 2023-04-11 20:00 | XMS_ITS | CCD ---
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 043801 1 Tablet(s) PO daily 018 2017 Inactive levothyroxine 50 mcg tablet RxNorm: 264922 1 Tablet(s) PO daily 018 2017 Inactive TRUEplus Lancets 30 gauge RxNorm: 1 Lancets Miscellaneous QAM 018 2017 Inactive 100/box Ventolin HFA 90 mcg/actuation aerosol inhaler RxNorm: 482922 2 Puff(s) INH QID 018 2017 Inactive Aleve 220 mg capsule RxNorm: 4288522 1 Capsule(s) PO BID 018 2018 Inactive ranitidine 150 mg tablet RxNorm: 280231 1 Tablet(s) PO BID 018 2017 Inactive gabapentin 300 mg capsule RxNorm: 627914 1 Capsule(s) PO TID as needed 018 2017 Inactive atorvastatin 20 mg tablet RxNorm: 223471 1 Tablet(s) PO QHS 018 2017 Inactive True Metrix Glucose Test Strip RxNorm: 1 Test Strips Miscellaneous QAM 018 2017 Inactive 50/container Calcium 600-D3 Plus 600 mg calcium-800 unit-50 mg tablet RxNorm: 1 Tablet(s) PO daily take an additonal tablet for itching. 018 2017 Inactive hydrochlorothiazide 12.5 mg tablet RxNorm: 591278 1 Tablet(s) PO QAM 018 2017 Inactive Flintstones Complete (iron) 18 mg iron chewable tablet RxNorm: 1 Tablet(s) PO daily 018 2017 Inactive True Metrix Glucose Meter RxNorm: miscellaneous 019 2018 Inactive sertraline 50 mg tablet RxNorm: 048491 1 Tablet(s) PO daily 020 2019 Inactive loperamide 2 mg tablet RxNorm: 989975 oral 2018 Inactive d-mannose oral powder RxNorm: PO 018 2021 Inactive Symbicort 160 mcg-4.5 mcg/actuation HFA aerosol inhaler RxNorm: 3052079 2 Puff(s) INH BID 2018 Inactive Medication Administered No Medication Administered data Procedures Procedure Codes Date [place] Assessment CPT-4: DSWA 01/02 Fall Risk Assessment CPT-4: DFRA 01/27/2023 Hypertension CPT-4: HTN 01/27/2023 Patient Health Questionnaire CPT-4: DPHQ Pain Screening CPT-4: PAS 2022 Tobacco Assessment/Screening CPT-4: TCA Hypertension CPT-4: HTN 08/17/2022 [place] Assessment CPT-4: DSWA 04/02 Patient Health [...] CPT-4: VACP Fall Risk Assessment SNOMED CT: 24949632 4 CPT-4: DFRA 01/13/2021 [place] Assessment CPT-4: DSWA 12/01 Urinalysis, dip stick CPT-4: 64783 09/24/2020 Patient Health Questionnaire CPT-4: DPHQ Electrocardiogram CPT-4: 66358 05/14/2020 Tobacco Assessment/Screening CPT-4: TCA Fall Risk Assessment SNOMED CT: 96403215 4 CPT-4: DFRA 01/01/2020 Functional Assessment CPT-4: DFA 01/01/2020 [place] Assessment CPT-4: DSWA 11/04 Patient Health Questionnaire CPT-4: DPHQ [place] Assessment CPT-4: DSWA 10/03 Hypertension CPT-4: HTN 10/17/2019 Fall Risk Assessment SNOMED CT: 63712451 4 CPT-4: DFRA 09/19/2019 Functional Assessment CPT-4: DFA 09/19/2019 Urinalysis, dip stick CPT-4: 65672 06/21/2019 Tobacco Assessment/Screening CPT-4: TCA Patient Health Questionnaire CPT-4: DPHQ AHA/REBECCA Classification Assessment CPT-4: DAHA 04/25/2019 Controlled Substance Report CPT-4: CTRSU 04/03 Urinalysis, dip stick CPT-4: 06230 03/28/2019 Urinalysis, dip stick CPT-4: 72942 03/28/2019 Y8N-Ezqbhspzvhgvufr CPT-4: 82920 Unknown H1A-Dcqnypmibldscxn CPT-4: 47816 Unknown T8R-Emzoffybvereqli CPT-4: 51372 Unknown C1I-Swcvgdrzumdmnis CPT-4: 41538 Unknown Z0P-Gmfxnqgkwfvajtd CPT-4: 34327 Unknown Y8N-Ousbialivkzeyds CPT-4: 04848 Unknown B4F-Rafecplgnqrwjgq CPT-4: 42440 Unknown F7U-Yahfsfvntlzvxez CPT-4: 84851 Unknown B3B-Wmyobaywwgzlabj CPT-4: 05054 Unknown S4J-Ikqmyfrcvbxzgzn CPT-4: 08888 Unknown U3H-Ybwatdakdotpbsj CPT-4: 43552 Unknown X1L-Sbgsxbamzqahlfl CPT-4: 67135 Unknown Gynecology Referral SNOMED CT: 476484879 CPT-4: R14 Unknown Reason For Visit No [...] Referral Initiated Referral: [facility] WPtel: [address] [place] [address] [address] Brim Blocker placed a call out to the patient to notify her that it has been recommended that she be seen by 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 Patient agreed to be seen, does not have a provider of choice and no transportation issues. Brim Blocker faxed referral and clinical notes to [facility] in [place], [place] near the patient's home. Patient to [...] seen and prefers a provider in the [place] or [place]. Brim Blocker placed a call out to everyone listed in the area and the only location that was able to accept the patient's insurance was [place] [address] [place] [address] and spoke with Maylin. Maylin asked that the patient's referral, face sheet and visit notes be faxed to . Brim Blocker faxed over requested documents. Patient appointment confirmation letter generated and mailed to her home address. Patient to call to schedule an appointment. Processed Referral: [facility] WPtel: [address] [place] [address] [place] [address] Patient notified that it has been advised that she be seen by Neurology. Patient agreed to be seen and prefers to be seen by a provider in the [place], [place] area. Patient denies any concerns with transportation, and prefers to schedule her own appointment. Brim Blocker placed a call out to [facility] and spoke with [...]
--- OUTSIDE RECORDS SUMMARY | 2023-04-17 20:00 | XMS_ITS | CCD ---
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 Information Support Project Manager Name Role Phone Palomo KING, Anna Primary Care Provider Unav ailable Unavailable Chronic Care Management Unavaila ble Summary Purpose DataExchange Insurance Providers Payer name Policy type / Coverage type Covered green party ID Effective Begin Date Effective End Date SUKI MAYO [id number] Unknown Unknown Family history Mother Diagnosis Age [...] Unknown Disability 05/31/[address]: 081959235 Has never s moked or chewed tobacco 05/31/[address]: 147355969 Never drinks alco hol 05/31/2018 Has the patient ever used illegal drugs? Unknown Has never used illegal drugs 05/31/2018 DNR Order/ Advanced Directive Unknown Full Code 05/31/2018 Allergies, Adverse Reactions, Alerts Substance Reaction Codes Entered Date Inactivated Date Status OxyContin itch, RxNorm: 913464 01/13/2021 No Inactive Da te Active *No [...] E78. 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 ICD-9: 372.03 12/29/2019 Resolved [...] Fill Instructions levothyroxine 50 mcg tablet RxNorm: 598185 Take 1 Tablet(s) Oral every day 023 2023 [facility] Request[facility] hydrochlorothiazide 25 mg tablet RxNorm: 470336 Take 1 Tablet(s) Oral every day 023 2023 [facility] Request[facility] atorvastatin 20 mg tablet RxNorm: 904905 Take 1 Tablet(s) Oral every night at bedtime 023 2023 Active Macrobid 100 mg capsule RxNorm: 345447 1 Capsule(s) Oral every 12 hours with food 023 2022 Inactive omeprazole 40 mg capsule,delayed release RxNorm: 20021111 Take 1 Capsule(s) Oral every night at bedtime 023 2022 Inactive trazodone 50 mg tablet RxNorm: 430767 Administer 1 Tablet(s) Oral every night at bedtime 023 No Stop Date Active cholecalciferol (vitamin D3) 50 mcg (2,000 unit) tablet RxNorm: 577748 Take 1 Tablet(s) Oral every day 023 2023 Active Ozempic 1 mg/dose (4 mg/3 mL) subcutaneous pen injector RxNorm: 2635162 USE 1 UNIT DOSE SUBCUTANEOUSLY ON TUE OF EACH WEEK 023 2022 Inactive lisinopril 2.5 mg tablet RxNorm: 822400 Take 1 Tablet(s) Oral every day 023 2022 Inactive Msg From [facility]: Dr. Zapata Requested Ozempic 1 mg/dose (4 mg/3 mL) subcutaneous pen injector RxNorm: 7339492 USE 1 UNIT DOSE SUBCUTANEOUSLY ON TUE OF EACH WEEK 023 2022 Inactive omeprazole 40 mg capsule,delayed release RxNorm: 20021111 Take 1 Capsule(s) Oral every night at bedtime 023 2022 Inactive gabapentin 300 mg capsule RxNorm: 325133 Take 1 Capsule(s) Oral three times a day 023 2022 Inactive montelukast 10 mg tablet RxNorm: 793349 Take 1 Tablet(s) Oral every day 023 2022 Inactive omeprazole 20 mg capsule,delayed release RxNorm: 099782 Take 1 Capsule(s) Oral every evening 022 2022 Inactive Alcohol Prep Pads RxNorm: 687691 USE EACH MORNING 022 2021 Inactive E11.42 clotrimazole 1 % topical cream RxNorm: 129640 Apply 1 Application Topical two times a day as needed apply to affected area(s) twice daily until healed 11/17/11 Inactive Victoza 2-Sebastián 0.6 mg/0.1 mL (18 mg/3 mL) subcutaneous pen injector RxNorm: 718382 Inject 0.6-1.8 Milligram(s) Subcutaneous once a week Inject 0.6mg/0.1ml week one, 1.2mg/0.2ml week two, 1.8/0.3ml weekly thereafter 2021 Inactive ibuprofen 800 mg tablet RxNorm: 569318 Take 1 Tablet(s) Oral Q8H as needed for pain take with food No Stop Date Active Ozempic 1 mg/dose (4 mg/3 mL) subcutaneous pen injector RxNorm: 0956213 Take 1 Unit Dose Subcutaneous QWeek Tuesday2021 Inactive lisinopril 2.5 mg tablet RxNorm: 267691 Take 1 Tablet(s) Oral every day 2021 Inactive lisinopril 2.5 mg tablet RxNorm: 469065 Take 1 Tablet(s) Oral every day 022 2022 Inactive hydrochlorothiazide 25 mg tablet RxNorm: 174647 Take 1 Tablet(s) Oral every day 022 2021 Inactive Ozempic 1 mg/dose (4 mg/3 mL) subcutaneous pen injector RxNorm: 3471503 Take 1 Unit Dose Subcutaneous QWeek 2021 Inactive famotidine 20 mg tablet RxNorm: 094167 Take 1 Tablet(s) Oral every morning 2021 Inactive levothyroxine 50 mcg tablet RxNorm: 227839 Take 1 Tablet(s) Oral every day 022 2021 Inactive atorvastatin 20 mg tablet RxNorm: 552958 Take 1 Tablet(s) Oral every night at bedtime 022 2021 Inactive Cleocin T 1 % lotion RxNorm: 513270 Take 2 Gram(s) Topical every day 022 2021 Inactive Cleocin T 1 % lotion RxNorm: 438583 Take 2 Gram(s) Topical every day 022 2021 Inactive Ozempic 1 mg/dose (4 mg/3 mL) subcutaneous pen injector RxNorm: 0317940 Take 1 Unit Dose Subcutaneous QWeek 022 2021 Inactive Ozempic 0.25 mg or 0.5 mg (2 mg/1.5 mL) subcutaneous pen injector RxNorm: 4361844 INJECT 0.5 MGS SUBCUTANEOUSLY EVERY WEEK 2021 Inactive omeprazole 20 mg capsule,delayed release RxNorm: 531997 Take 1 Capsule(s) Oral every evening 2021 Inactive levothyroxine 50 mcg tablet RxNorm: 865674 Take 1 Tablet(s) Oral every day 022 2021 Inactive atorvastatin 20 mg tablet RxNorm: 022134 Take 1 Tablet(s) Oral every night at bedtime 2021 Inactive This refill negates all other refills of this medication lisinopril 2.5 mg tablet RxNorm: 055953 Take 1 Tablet(s) Oral every day 2021 Inactive gabapentin 300 mg capsule RxNorm: 645737 Take 1 Capsule(s) Oral three times a day 022 2021 Inactive montelukast 10 mg tablet RxNorm: 451884 Take 1 Tablet(s) Oral every day 2021 Inactive Myrbetriq 50 mg tablet,extended release RxNorm: 8856932 1 Tablet(s) Oral every day No Stop Date Active cholecalciferol (vitamin D3) 50 mcg (2,000 unit) tablet RxNorm: 122674 Take 1 Tablet(s) Oral every day 022 2022 Inactive Ozempic 0.25 mg or 0.5 mg (2 mg/1.5 mL) subcutaneous pen injector RxNorm: 4240316 inject 0.5 milligrams subcutaneously every week 022 2021 Inactive Ozempic 0.25 mg or 0.5 mg (2 mg/1.5 mL) subcutaneous pen injector RxNorm: 4602240 Take 0.5 Capsule(s) Injection once a week 2021 Inactive omeprazole 20 mg capsule,delayed release RxNorm: 548170 Take 1 Capsule(s) Oral every evening 2020 Inactive Ozempic 0.25 mg or 0.5 mg (2 mg/1.5 mL) subcutaneous pen injector RxNorm: 8135715 Take 0.25 Milligram(s) Subcutaneous once a week 2021 Inactive Easy Touch Alcohol Prep Pads RxNorm: 319214 USE DIRECTED EACH MORNING 2021 Inactive Probiotic 10 billion cell capsule RxNorm: 8653332 Take 1 Capsule(s) Oral every day 2021 Inactive levothyroxine 50 mcg tablet RxNorm: 669043 Take 1 Tablet(s) Oral every day 2020 Inactive Acid Autocad [place] (famotidine) 20 mg tablet RxNorm: 589578 Take 1 Tablet(s) Oral every morning 2020 Inactive Heartburn Relief (famotidine) 10 mg tablet RxNorm: 180492 Take 1 Tablet(s) Oral QAM 2020 Inactive levothyroxine 50 mcg tablet RxNorm: 948493 Take 1 Tablet(s) Oral QD 2020 Inactive Singulair 10 mg tablet RxNorm: 383569 TAKE (1) TABLET BY MOUTH DAILY 2020 Inactive metformin 1,000 mg tablet RxNorm: 996038 1 Tablet(s) Oral two times a day 2021 Inactive lisinopril 2.5 mg tablet RxNorm: 705800 Take 1 Tablet(s) Oral every day 021 2020 Inactive hydrochlorothiazide 25 mg tablet RxNorm: 431194 Take 1 Tablet(s) Oral every day 021 2020 Inactive ondansetron 4 mg disintegrating tablet RxNorm: 477497 1 Tablet(s) Oral two times a day 021 2020 Inactive Sudafed 12 Hour 120 mg tablet,extended release RxNorm: 7841535 TAKE 1 TABLET BY MOUTH EVERY 12 HOURS NEEDED 021 2021 Inactive Heartburn Relief (famotidine) 10 mg tablet RxNorm: 030979 Take 1 Tablet(s) Oral every morning 021 2020 Inactive omeprazole 20 mg capsule,delayed release RxNorm: 201556 1 Capsule(s) Oral every evening 021 2020 Inactive sertraline 100 mg tablet RxNorm: 211874 2 Tablet(s) Oral every day 021 2020 Inactive levothyroxine 50 mcg tablet RxNorm: 410646 TAKE (1) TABLET BY MOUTH DAILY 021 2020 Inactive metformin 500 mg tablet RxNorm: 244253 1 Tablet(s) Oral two times a day take with 500mg to equal 1000mg 021 2020 Inactive gabapentin 300 mg capsule RxNorm: 978638 TAKE 1 CAPSULE BY MOUTH THREE TIMES A DAY 021 2020 Inactive lisinopril 2.5 mg tablet RxNorm: 905512 TAKE 1 TABLET BY MOUTH DAILY 021 2020 Inactive gabapentin 300 mg capsule RxNorm: 921803 TAKE 1 CAPSULE BY MOUTH THREE TIMES A DAY 021 2020 Inactive Singulair 10 mg tablet RxNorm: 607618 TAKE (1) TABLET BY MOUTH DAILY 021 2020 Inactive metformin 1,000 mg tablet RxNorm: 799471 1 Tablet(s) Oral two times a day 021 2020 Inactive atorvastatin 40 mg tablet RxNorm: 970391 1 Tablet(s) Oral every day 021 2020 Inactive omeprazole 20 mg capsule,delayed release RxNorm: 091469 1 Capsule(s) Oral every evening 021 2020 Inactive famotidine 10 mg tablet RxNorm: 406326 1 Tablet(s) Oral every morning 2020 Inactive Alcohol Prep Pads RxNorm: 903150 USE EACH MORNING 2020 Inactive omeprazole 20 mg capsule,delayed release RxNorm: 441684 1 Capsule(s) Oral two times a day 2021 Inactive omeprazole 20 mg capsule,delayed release RxNorm: 571472 TAKE 1 CAPSULE BY MOUTH EVERY DAY 2021 Inactive Macrobid 100 mg capsule RxNorm: 388471 1 Capsule(s) Oral every 12 hours with food 2020 Inactive omeprazole 20 mg capsule,delayed release RxNorm: 658114 1 Capsule(s) Oral two times a day 2021 Inactive metformin 1,000 mg tablet RxNorm: 624177 1 Tablet(s) Oral two times a day 2020 Inactive start on September 11, 2020 metformin 500 mg tablet RxNorm: 419854 1 Tablet(s) Oral two times a day take with 500mg to equal 1000mg 2019 Inactive gabapentin 300 mg capsule RxNorm: 317123 TAKE 1 CAPSULE BY MOUTH THREE TIMES DAILY 2020 Inactive cetirizine 10 mg tablet RxNorm: 6021237 TAKE (1) TABLET BY MOUTH DAILY 2020 Inactive metformin 500 mg tablet RxNorm: 381952 1 Tablet(s) Oral two times a day 2019 Inactive loperamide 2 mg tablet RxNorm: 387932 1 Tablet(s) Oral as needed take one tablet after each loose stool, maximum of 8 tablets in 24 hours 2021 Inactive Sudafed 12 Hour 120 mg tablet,extended release RxNorm: 3570359 TAKE 1 TABLET BY MOUTH EVERY 12 HOURS NEEDED 2019 Inactive hydrochlorothiazide 25 mg tablet RxNorm: 603371 TAKE (1) TABLET BY MOUTH EVERY DAY 2019 Inactive omeprazole 20 mg capsule,delayed release RxNorm: 097356 TAKE 1 CAPSULE BY MOUTH EVERY DAY 020 2020 Inactive metformin 500 mg tablet RxNorm: 470829 1 Tablet(s) Oral every day 020 2019 Inactive True Metrix Glucose Test Strip RxNorm: 1 Test Strips Miscellaneous two times a day as needed No Stop Date Active metformin 500 mg tablet RxNorm: 966646 1 Tablet(s) Oral every day 020 2019 Inactive diclofenac sodium 75 mg tablet,delayed release RxNorm: 641255 1 Tablet(s) PO BID 2021 Inactive This refill negates all other refills of this medication Sudafed 12 Hour 120 mg tablet,extended release RxNorm: 4110666 TAKE 1 TABLET BY MOUTH EVERY 12 HOURS NEEDED 020 2019 Inactive True Metrix Glucose Test Strip RxNorm: 1 Test Strips Miscellaneous every morning 020 2019 Inactive 100/container True Metrix Glucose Test Strip RxNorm: 1 Test Strips Miscellaneous QA 020 2019 Inactive 100/container loperamide 2 mg tablet RxNorm: 929748 1 Tablet(s) Oral as needed take one tablet after each loose stool, maximum of 8 tablets in 24 hours 020 2019 Inactive cetirizine 10 mg tablet RxNorm: 6280170 1 Tablet(s) PO daily 020 2019 Inactive loperamide 2 mg tablet RxNorm: 830621 1 Tablet(s) Oral as needed take one tablet after each loose stool, maximum of 8 tablets in 24 hours 020 2019 Inactive quetiapine 100 mg tablet RxNorm: 336314 1 Tablet(s) Oral every night at bedtime 020 2019 Inactive levothyroxine 50 mcg tablet RxNorm: 458972 1 Tablet(s) PO daily 020 2020 Inactive gabapentin 300 mg capsule RxNorm: 302168 1 Capsule(s) PO TID 2019 Inactive levothyroxine 50 mcg tablet RxNorm: 273447 1 Tablet(s) PO daily 2019 Inactive lisinopril 2.5 mg tablet RxNorm: 480858 1 Tablet(s) PO daily 2020 Inactive gabapentin 300 mg capsule RxNorm: 612532 1 Capsule(s) PO TID 2019 Inactive cetirizine 10 mg tablet RxNorm: 7360375 1 Tablet(s) PO daily 2019 Inactive Singulair 10 mg tablet RxNorm: 994963 1 Tablet(s) PO daily 2020 Inactive gentamicin 0.3 % eye drops RxNorm: 559682 1 Drop(s) ophthalmic (eye) four times a day 2019 Inactive gentamicin 0.3 % eye drops RxNorm: 983617 1 Drop(s) ophthalmic (eye) four times a day 2019 Inactive gentamicin 0.3 % eye drops RxNorm: 848556 1 Drop(s) ophthalmic (eye) four times a day 2019 Inactive hydrochlorothiazide 25 mg tablet RxNorm: 395987 1 Tablet(s) Oral every day 2019 Inactive Sudafed 12 Hour 120 mg tablet,extended release RxNorm: 1448916 TAKE (1) TABLET BY MOUTH EVERY 12 HOURS NEEDED 2019 Inactive loperamide 2 mg tablet RxNorm: 109088 1 Tablet(s) Oral as needed take one tablet after each loose stool, maximum of 8 tablets in 24 hours 2019 Inactive loperamide 2 mg tablet RxNorm: 614941 1 Tablet(s) Oral as needed take one tablet after each loose stool, maximum of 8 tablets in 24 hours 2019 Inactive atorvastatin 40 mg tablet RxNorm: 798643 1 Tablet(s) Oral every day 2020 Inactive quetiapine 100 mg tablet RxNorm: 866497 1 Tablet(s) Oral every night at bedtime 2019 Inactive sertraline 100 mg tablet RxNorm: 084755 1 Tablet(s) Oral 020 2019 Inactive omeprazole 20 mg capsule,delayed release RxNorm: 223904 1 Capsule(s) Oral every day 2019 Inactive amoxicillin 250 mg capsule RxNorm: 635948 1 Capsule(s) Oral three times a day 2019 Inactive multivitamin with iron-mineral tablet RxNorm: 1 Tablet(s) Oral every day 2021 Inactive cetirizine 10 mg tablet RxNorm: 5756862 1 Tablet(s) PO daily 2019 Inactive This refill negates all other refills of this medication. Please do not auto refill Singulair 10 mg tablet RxNorm: 399435 1 Tablet(s) PO daily 2019 Inactive This refill negates all other refills of this medication gabapentin 300 mg capsule RxNorm: 461606 1 Capsule(s) PO TID 2019 Inactive lisinopril 2.5 mg tablet RxNorm: 347533 1 Tablet(s) PO daily 2019 Inactive levothyroxine 50 mcg tablet RxNorm: 707252 1 Tablet(s) PO daily 2019 Inactive This refill negates all other refills of this medication hydrochlorothiazide 25 mg tablet RxNorm: 556901 1 Tablet(s) Oral every day 2019 Inactive fenugreek seed extract 500 mg capsule RxNorm: 1 Capsule(s) Oral three times a day 020 2021 Inactive Alcohol Prep Pads RxNorm: 055084 1 Patch TOP QAM 020 2020 Inactive loperamide 2 mg tablet RxNorm: 858748 1 Tablet(s) Oral as needed take one [...] 2019 Inactive hydrochlorothiazide 25 mg tablet RxNorm: 299026 1 Tablet(s) Oral every day 2019 Inactive Sudafed 12 Hour 120 mg tablet,extended release RxNorm: 0544765 1 Tablet(s) Oral every 12 hours as needed 2018 Inactive omeprazole 20 mg capsule,delayed release RxNorm: 094002 1 Capsule(s) Oral every day 2019 Inactive Sudafed 12 Hour 120 mg tablet,extended release RxNorm: 0978765 1 Tablet(s) Oral every 12 hours as needed 019 2018 Inactive pantoprazole 40 mg tablet,delayed release RxNorm: 385455 1 Tablet(s) Oral every day 2018 Inactive discontinue any other H2Blkr. and PPI albuterol sulfate 2.5 mg/3 mL (0.083 %) solution for nebulization RxNorm: 678709 1 Vial Inhalation every four hours as needed as needed for dyspnea 2019 Inactive 60/box. This refill negates all other refills of this medication. Please do not fill early. Please do not auto refill. Symbicort 160 mcg-4.5 mcg/actuation HFA aerosol inhaler RxNorm: 9767479 2 Puff(s) INH BID No Stop Date Active Alcohol Prep Pads RxNorm: 832677 1 Patch TOP QAM 2020 Inactive Ventolin HFA 90 mcg/actuation aerosol inhaler RxNorm: 921907 2 Puff(s) INH QID 019 2019 Inactive Please do not fill early. Please do not auto refill. This refill negates all other refills of this medication True Metrix Glucose Test Strip RxNorm: 1 Test Strips Miscellaneous QAM 019 2019 Inactive 100/container atorvastatin 40 mg tablet RxNorm: 146850 1 Tablet(s) Oral every day 019 2019 Inactive buspirone 7.5 mg tablet RxNorm: 583215 1 Tablet(s) PO BID 019 2020 Inactive This refill negates all other refills of this medication hydrochlorothiazide 12.5 mg tablet RxNorm: 028253 1 Tablet(s) PO QAM 019 2019 Inactive levmetamfetamine 50 mg nasal inhaler RxNorm: 1 Unit(s) NASAL Q3-4H Do not use more than every 3 hours or 8 times/24hours 019 2021 Inactive Please do not auto refill. This refill negates all other refills of this medication Ventolin HFA 90 mcg/actuation aerosol inhaler RxNorm: 093511 2 Puff(s) INH QID 019 2018 Inactive Please do not fill early. Please do not auto refill. This refill negates all other refills of this medication Singulair 10 mg tablet RxNorm: 859613 1 Tablet(s) PO daily 019 2019 Inactive This refill negates all other refills of this medication cetirizine 10 mg tablet RxNorm: 7955800 1 Tablet(s) PO daily 019 2019 Inactive This refill negates all other refills of this medication. Please do not auto refill levothyroxine 50 mcg tablet RxNorm: 772885 1 Tablet(s) PO daily 019 2019 Inactive This refill negates all other refills of this medication diclofenac sodium 75 mg tablet,delayed release RxNorm: 434982 1 Tablet(s) PO BID 019 2019 Inactive This refill negates all other refills of this medication ranitidine 150 mg tablet RxNorm: 032283 1 Tablet(s) PO BID 019 2018 Inactive This refill negates all other refills of this medication Calcium 600-D3 Plus (mag-zinc) 600 mg calcium-800 unit-50 mg tablet RxNorm: 1 Tablet(s) PO daily take an additonal tablet for itching. 019 2018 Inactive This refill negates all other refills of this medication albuterol sulfate 2.5 mg/3 mL (0.083 %) solution for nebulization RxNorm: 253685 1 Vial INH QID 019 2018 Inactive 60/box. This refill negates all other refills of this medication. Please do not fill early. Please do not auto refill. lisinopril 2.5 mg tablet RxNorm: 817041 1 Tablet(s) PO daily 019 2019 Inactive gabapentin 300 mg capsule RxNorm: 779243 1 Capsule(s) PO TID 019 2019 Inactive atorvastatin 20 mg tablet RxNorm: 260680 1 Tablet(s) PO QHS 019 2018 Inactive This refill negates all other refills of this medication TRUEplus Lancets 30 gauge RxNorm: 1 Lancets Miscellaneous QA 019 2018 Inactive 100/box gabapentin 300 mg capsule RxNorm: 524644 1 Capsule(s) PO TID 019 2018 Inactive Flintstones Complete (iron) 18 mg iron chewable tablet RxNorm: 1 Tablet(s) PO daily 019 2021 Inactive This refill negates all other refills of this medication gabapentin 300 mg capsule RxNorm: 938557 1 Capsule(s) PO TID as needed 019 2018 Inactive True Metrix Glucose Test Strip RxNorm: 1 Test Strips Miscellaneous QA 019 2018 Inactive 100/container Alcohol Prep Pads RxNorm: 011158 1 Patch TOP QAM 019 2018 Inactive TRUEplus Lancets 30 gauge RxNorm: 1 Lancets Miscellaneous QAM 019 2018 Inactive 100/box lisinopril 2.5 mg tablet RxNorm: 232594 1 Tablet(s) PO daily 019 2018 Inactive ranitidine 150 mg tablet RxNorm: 222651 1 Tablet(s) PO BID 019 2018 Inactive This refill negates all other refills of this medication albuterol sulfate 2.5 mg/3 mL (0.083 %) solution for nebulization RxNorm: 782324 1 Vial INH QID 019 2018 Inactive [...] this medication gabapentin 300 mg capsule RxNorm: 726212 1 Capsule(s) PO TID as needed 019 2018 Inactive atorvastatin 20 mg tablet RxNorm: 391350 1 Tablet(s) PO QHS 019 2018 Inactive This refill negates all other refills of this medication trazodone 50 mg tablet RxNorm: 268759 1 Tablet(s) PO QHS 019 2018 Inactive This refill negates all other refills of this medication Ventolin HFA 90 mcg/actuation aerosol inhaler RxNorm: 293554 2 Puff(s) INH QID 019 2018 Inactive Please do not fill early. Please do not auto refill. This refill negates all other refills of this medication Calcium 600-D3 Plus 600 mg calcium-800 unit-50 mg tablet RxNorm: 1 Tablet(s) PO daily take an additonal tablet for itching. 019 2018 Inactive This refill negates all other refills of this medication Singulair 10 mg tablet RxNorm: 814113 1 Tablet(s) PO daily 019 2018 Inactive This refill negates all other refills of this medication buspirone 7.5 mg tablet RxNorm: 333643 1 Tablet(s) PO BID 019 2018 Inactive This refill negates all other refills of this medication diclofenac sodium 75 mg tablet,delayed release RxNorm: 592273 1 Tablet(s) PO BID 019 2018 Inactive This refill negates all other refills of this medication hydrochlorothiazide 12.5 mg tablet RxNorm: 278912 1 Tablet(s) PO QAM 019 2018 Inactive metoprolol succinate ER 50 mg tablet,extended release 24 hr RxNorm: 829405 1 Tablet(s) PO daily 019 2018 Inactive This refill negates all other refills of this medication levothyroxine 50 mcg tablet RxNorm: 662703 1 Tablet(s) PO daily 019 2018 Inactive This refill negates all other refills of this medication cetirizine 10 mg tablet RxNorm: 2640634 1 Tablet(s) PO daily 019 2018 Inactive This refill negates all other refills of this medication. Please do not auto refill Flintstones Complete (iron) 18 mg iron chewable tablet RxNorm: 1 Tablet(s) PO daily 019 2018 Inactive This refill negates all other refills of this medication buspirone 7.5 mg tablet RxNorm: 967582 1 Tablet(s) PO BID 019 2018 Inactive cetirizine 10 mg tablet RxNorm: 4734138 1 Tablet(s) PO daily 2018 Inactive Guaiasorb DM 10 mg-100 mg/5 mL oral liquid RxNorm: 525692 10 Milliliter(s) PO As needed every 4 hr 2018 Inactive Vicks Vaporub 4.7 %-1.2 %-2.6 % topical ointment RxNorm: 9130416 1 Application TOP TID 2018 Inactive levmetamfetamine 50 mg nasal inhaler RxNorm: 1 Unit(s) NASAL Q3-4H 2017 Inactive sertraline 50 mg tablet RxNorm: 185549 1 Tablet(s) PO daily 2018 Inactive Please note dose trazodone 50 mg tablet RxNorm: 811487 1 Tablet(s) PO QHS 2018 Inactive sertraline 50 mg tablet RxNorm: 256603 1 Tablet(s) PO daily 2017 Inactive amoxicillin 500 mg tablet RxNorm: 636848 1 Tablet(s) PO Q12H 2017 Inactive albuterol sulfate 2.5 mg/3 mL (0.083 %) solution for nebulization RxNorm: 505054 1 Vial INH QID 2018 Inactive 60/box. Please do not fill early. Please do not auto refill. Prozac 10 mg capsule RxNorm: 615038 1 Capsule(s) PO daily 2017 Inactive buspirone 7.5 mg tablet RxNorm: 822338 1 Tablet(s) PO BID 2018 Inactive gabapentin 300 mg capsule RxNorm: 194203 1 Capsule(s) PO TID as needed 2018 Inactive hydrochlorothiazide 12.5 mg tablet RxNorm: 908338 1 Tablet(s) PO QAM 2018 Inactive ranitidine 150 mg tablet RxNorm: 903340 1 Tablet(s) PO BID 2018 Inactive Macrobid 100 mg capsule RxNorm: 905535 1 Capsule(s) PO Q12H 2017 Inactive Singulair 10 mg tablet RxNorm: 959552 1 Tablet(s) PO daily 018 2018 Inactive Ventolin HFA 90 mcg/actuation aerosol inhaler RxNorm: 5669893 2 Puff(s) INH QID 018 2018 Inactive Singulair 10 mg tablet RxNorm: 794556 1 Tablet(s) PO daily 018 2017 Inactive buspirone 7.5 mg tablet RxNorm: 300670 1 Tablet(s) PO BID 018 2017 Inactive Prozac 10 mg capsule RxNorm: 450583 1 Capsule(s) PO daily 018 2017 Inactive diclofenac sodium 75 mg tablet,delayed release RxNorm: 037334 1 Tablet(s) PO BID 018 2017 Inactive lisinopril 2.5 mg tablet RxNorm: 867424 1 Tablet(s) PO daily 018 2017 Inactive Neilmed Pediatric Sinus Rinse Refill packet RxNorm: 1 Unit Dose NASAL PRN 018 2021 Inactive metoprolol succinate ER 50 mg tablet,extended release 24 hr RxNorm: 000667 1 Tablet(s) PO daily 018 2017 Inactive levothyroxine 50 mcg tablet RxNorm: 454010 1 Tablet(s) PO daily 018 2017 Inactive TRUEplus Lancets 30 gauge RxNorm: 1 Lancets Miscellaneous QAM 018 2017 Inactive 100/box Ventolin HFA 90 mcg/actuation aerosol inhaler RxNorm: 047139 2 Puff(s) INH QID 018 2017 Inactive Aleve 220 mg capsule RxNorm: 4304300 1 Capsule(s) PO BID 018 2018 Inactive ranitidine 150 mg tablet RxNorm: 670157 1 Tablet(s) PO BID 018 2017 Inactive gabapentin 300 mg capsule RxNorm: 989386 1 Capsule(s) PO TID as needed 018 2017 Inactive atorvastatin 20 mg tablet RxNorm: 505144 1 Tablet(s) PO QHS 018 2017 Inactive True Metrix Glucose Test Strip RxNorm: 1 Test Strips Miscellaneous QAM 018 2017 Inactive 50/container Calcium 600-D3 Plus 600 mg calcium-800 unit-50 mg tablet RxNorm: 1 Tablet(s) PO daily take an additonal tablet for itching. 018 2017 Inactive hydrochlorothiazide 12.5 mg tablet RxNorm: 460952 1 Tablet(s) PO QAM 018 2017 Inactive Flintstones Complete (iron) 18 mg iron chewable tablet RxNorm: 1 Tablet(s) PO daily 018 2017 Inactive True Metrix Glucose Meter RxNorm: miscellaneous 019 2018 Inactive sertraline 50 mg tablet RxNorm: 801277 1 Tablet(s) PO daily 020 2019 Inactive loperamide 2 mg tablet RxNorm: 053936 oral 019 2018 Inactive d-mannose oral powder RxNorm: PO 018 2021 Inactive Symbicort 160 mcg-4.5 mcg/actuation HFA aerosol inhaler RxNorm: 9758681 2 Puff(s) INH BID 019 2018 Inactive Medication Administered No Medication Administered data Procedures Procedure Codes Date Merkel Fany Assessment CPT-4: DSWA 01/02 Fall Risk Assessment CPT-4: DFRA 01/27/2023 Hypertension CPT-4: HTN 01/27/2023 Patient Health Questionnaire CPT-4: DPHQ Pain Screening CPT-4: PAS 2022 Tobacco Assessment/Screening CPT-4: TCA Hypertension CPT-4: HTN 08/17/2022 Merkel Fany Assessment CPT-4: DSWA 04/02 Patient Health [...] CPT-4: VACP Fall Risk Assessment SNOMED CT: 45164196 4 CPT-4: DFRA 01/13/2021 Merkel Fany Assessment CPT-4: DSWA 12/01 Urinalysis, dip stick CPT-4: 33342 09/24/2020 Patient Health Questionnaire CPT-4: DPHQ Electrocardiogram CPT-4: 37577 05/14/2020 Tobacco Assessment/Screening CPT-4: TCA Fall Risk Assessment SNOMED CT: 66488878 4 CPT-4: DFRA 01/01/2020 Functional Assessment CPT-4: DFA 01/01/2020 Merkel Fany Assessment CPT-4: DSWA 11/04 Patient Health Questionnaire CPT-4: DPHQ Merkel Fany Assessment CPT-4: DSWA 10/03 Hypertension CPT-4: HTN 10/17/2019 Fall Risk Assessment SNOMED CT: 78202324 4 CPT-4: DFRA 09/19/2019 Functional Assessment CPT-4: DFA 09/19/2019 Urinalysis, dip stick CPT-4: 41395 06/21/2019 Tobacco Assessment/Screening CPT-4: TCA Patient Health Questionnaire CPT-4: DPHQ AHA/REBECCA Classification Assessment CPT-4: DAHA 04/25/2019 Controlled Substance Report CPT-4: CTRSU 04/03 Urinalysis, dip stick CPT-4: 12565 03/28/2019 Urinalysis, dip stick CPT-4: 91172 03/28/2019 O8V-Cdsxjxetexbgkjc CPT-4: 19170 Unknown C2E-Acptjrabahwjgee CPT-4: 56424 Unknown X2E-Sieskwgyuvymzsv CPT-4: 32287 Unknown G4Y-Zcnytlrzlcjstrt CPT-4: 85589 Unknown Y3I-Qclqgikrlzkbnru CPT-4: 22376 Unknown B9J-Ggzaimqbsasxltm CPT-4: 93815 Unknown Z2Z-Bajyouthztlpexc CPT-4: 38168 Unknown S5I-Aozimdnvugcdabi CPT-4: 24286 Unknown K1N-Bkxxkrrkqgxxlrv CPT-4: 61811 Unknown T7Y-Zymhepzmpfvegii CPT-4: 26595 Unknown V0X-Bqclaeqqzoqrxnn CPT-4: 06981 Unknown C1G-Txkzvjevvykvuev CPT-4: 62498 Unknown Gynecology Referral SNOMED CT: 050559099 CPT-4: R14 Unknown Reason For Visit No Reason For Visit data Plan of Care Planned Activity Notes Codes Status Date Referral: Pending Gynecology Referral Information Referral Processed Referral: Pending Pulmonolog y Referral Information Referral Processed Referral: Pending Psychiatry Referral Information Referral Initiated Referral: Pending Respirator y Services Referral Information Referral Initiated Referral: Pending Ophthalmol ogy Referral Information Referral Initiated Referral: [facility] WPtel: [address] [place] [address] Food Service Aide placed a call out to the patient to notify her that it has been recommended that she be seen by 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 Patient agreed to be seen, does not have a provider of choice and no transportation issues. Food Service Aide faxed referral and clinical notes to [facility] in [place], [place] near the patient's home. Patient to [...] seen and prefers a provider in the [place] or [place] area. Food Service Aide placed a call out to everyone listed in the area and the only location that was able to accept the patient's insurance was [address] [phone] and spoke with Maylin. Maylin asked that the patient's referral, face sheet and visit notes be faxed to . Food Service Aide faxed over requested documents. Patient appointment confirmation letter generated and mailed to her home address. Patient to call to schedule an appointment. Processed Referral: [facility] WPtel: [address] [facility] [address] [place], [place] [id number] Patient notified that it has been advised that she be seen by Neurology. Patient agreed to be seen and prefers to be seen by a provider in the [place], [place] area. Patient denies any concerns with transportation, and prefers to schedule her own appointment. Food Service Aide placed a call out to [facility] and spoke with Neeraj [...]
--- OUTSIDE RECORDS SUMMARY | 2023-06-02 20:00 | XMS_ITS | CCD ---
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 Unknown Has never used illegal drugs 05/31/2018 DNR Order/ Advanced Directive Unknown Full Code 05/31/2018 Allergies, Adverse Reactions, Alerts Substance Reaction Codes Entered Date Inactivated Date Status OxyContin itch, RxNorm: 939265 01/13/2021 No Inactive Da te Active *No known food allergies Unknown 09/06/2018 No I nactive Date Active Methylprednisolone hives RxNorm: 6902 09/06/2018 No Inac tive Date Active Problems Condition Codes Effective Dates Condition St atus Allergic rhinitis ICD-10: J30.9 ICD-9: 477.9 12/03/2021 Active Hyperlipidemia, mixed ICD-10: E78.2 ICD-9: 272.2 12/03/2021 Active Hypertensive heart disease w ithout heart failure ICD-10: I11.9 ICD-9: 402.90 12/03/2021 Active Major depression, recurrent ICD-10: F33. 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 43 ICD-9: V85.43 05/30/2018 Active Insomnia ICD-10: G47.00 ICD-9: 780.52 01/27/2023 Active GERD (gastroesophageal reflu x disease) ICD-10: [...] ICD-10 : S61.A ICD-9: 883.0 2022 Inactive Hypertension ICD-10: I10 ICD-9: 401.9 12/03/2021 Active Post-traumatic stress disord er, unspecified ICD-10: F43.10 ICD-9: 309.81 09/05/2018 Active Adjustment disorder with mix ed anxiety and depressed mood ICD-10: F43.23 ICD-9: 309.28 09/05/2018 Active Hypothyroid ICD-10: E03.9 ICD-9: 244.9 09/05/2018 Active Edema, unspecified ICD-10: R60.9 ICD-9: 782.3 07/11/2018 Active Hypertensive heart disease w ith heart [...] ICD-10: E78. 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 half-way (current) use of non-steroidal anti-inflammatories (NSAID) [...] ICD-10: R51 ICD-9: 784.0 10/03/2018 Inactive Other chcf (current) dr sharma therapy ICD-10: Z79.899 ICD-9: V58.69 04/25/2019 Inactive Type 2 diabetes mellitus wit hout complications ICD-10: E11.9 ICD-9: 250.00 10/03/2018 Inactive Wheezing ICD-10: R06.2 ICD-9: 786.07 08/08/2018 Inactive Abnormal urine finding ICD-10: R82.90 ICD-9: 791.9 09/24/2020 Resolved Abrasion of toe ICD-10: S90.416A ICD-9: 917.0 02/14/2020 Resolved [place] [facility] ICD-10: H10.029 ICD-9: 372.03 12/29/2019 Resolved [...] Fill Instructions cetirizine 10 mg tablet RxNorm: 5773103 TAKE (1) TABLET BY MOUTH DAILY 023 2023 Inactive amoxicillin 500 mg tablet RxNorm: 447160 Take 1 Tablet(s) Oral two times a day 023 2022 Inactive omeprazole 40 mg capsule,delayed release RxNorm: 565910 Take 1 Capsule(s) Oral at bed time 023 2022 Inactive Easy Touch Alcohol Prep Pads RxNorm: 354657 USE EACH MORNING 023 2024 Active montelukast 10 mg tablet RxNorm: 910579 Take 1 Tablet(s) Oral every day 023 2022 Inactive gabapentin 300 mg capsule RxNorm: 331289 Take 1 Capsule(s) Oral three times a day 023 2022 Inactive metformin ER 500 mg 24 hr tablet,extended release RxNorm: 8289047 Take 1 Tablet(s) Oral every day with the evening meal 023 2022 Inactive famotidine 20 mg tablet RxNorm: 740438 Take 1 Tablet(s) Oral every morning 023 2022 Inactive levothyroxine 50 mcg tablet RxNorm: 848305 Take 1 Tablet(s) Oral every day 023 2023 [facility] hydrochlorothiazide 25 mg tablet RxNorm: 120229 Take 1 Tablet(s) Oral every day 023 2023 Active Msg From [facility]: Approval Requested atorvastatin 20 mg tablet RxNorm: 914739 Take 1 Tablet(s) Oral every night at bedtime 023 2023 Active Macrobid 100 mg capsule RxNorm: 333969 1 Capsule(s) Oral every 12 hours with food 023 2022 Inactive omeprazole 40 mg capsule,delayed release RxNorm: 189438 Take 1 Capsule(s) Oral every night at bedtime 023 2022 Inactive trazodone 50 mg tablet RxNorm: 294292 Administer 1 Tablet(s) Oral every night at bedtime 023 No Stop Date Active cholecalciferol (vitamin D3) 50 mcg (2,000 unit) tablet RxNorm: 560547 Take 1 Tablet(s) Oral every day 023 2023 Active Ozempic 1 mg/dose (4 mg/3 mL) subcutaneous pen injector RxNorm: 1407577 USE 1 UNIT DOSE SUBCUTANEOUSLY ON TUE OF EACH WEEK 023 2022 Inactive lisinopril 2.5 mg tablet RxNorm: 057583 Take 1 Tablet(s) Oral every day 023 2022 Inactive Msg From [facility]: Dr. Zapata Requested Ozempic 1 mg/dose (4 mg/3 mL) subcutaneous pen injector RxNorm: 8956467 USE 1 UNIT DOSE SUBCUTANEOUSLY ON TUE OF EACH WEEK 023 2022 Inactive omeprazole 40 mg capsule,delayed release RxNorm: 670720 Take 1 Capsule(s) Oral every night at bedtime 023 2022 Inactive gabapentin 300 mg capsule RxNorm: 013124 Take 1 Capsule(s) Oral three times a day 023 2022 Inactive montelukast 10 mg tablet RxNorm: 197488 Take 1 Tablet(s) Oral every day 023 2022 Inactive omeprazole 20 mg capsule,delayed release RxNorm: 956266 Take 1 Capsule(s) Oral every evening 022 2022 Inactive Alcohol Prep Pads RxNorm: 466472 USE EACH MORNING 022 2021 Inactive E11.42 clotrimazole 1 % topical cream RxNorm: 785941 Apply 1 Application Topical two times a day as needed apply to affected area(s) twice daily until healed 2021 Inactive Victoza 2-Sebastián 0.6 mg/0.1 mL (18 mg/3 mL) subcutaneous pen injector RxNorm: 793894 Inject 0.6-1.8 Milligram(s) Subcutaneous once a week Inject 0.6mg/0.1ml week one, 1.2mg/0.2ml week two, 1.8/0.3ml weekly thereafter 022 2021 Inactive ibuprofen 800 mg tablet RxNorm: 186364 Take 1 Tablet(s) Oral Q8H as needed for pain take with food No Stop Date Active Ozempic 1 mg/dose (4 mg/3 mL) subcutaneous pen injector RxNorm: 4478935 Take 1 Unit Dose Subcutaneous QWeek Tuesday 022 2021 Inactive lisinopril 2.5 mg tablet RxNorm: 993299 Take 1 Tablet(s) Oral every day 022 2021 Inactive lisinopril 2.5 mg tablet RxNorm: 432319 Take 1 Tablet(s) Oral every day 022 2022 Inactive hydrochlorothiazide 25 mg tablet RxNorm: 050058 Take 1 Tablet(s) Oral every day 022 2021 Inactive Ozempic 1 mg/dose (4 mg/3 mL) subcutaneous pen injector RxNorm: 1423177 Take 1 Unit Dose Subcutaneous QWeek 022 2021 Inactive famotidine 20 mg tablet RxNorm: 872787 Take 1 Tablet(s) Oral every morning 2021 Inactive levothyroxine 50 mcg tablet RxNorm: 436991 Take 1 Tablet(s) Oral every day 022 2021 Inactive atorvastatin 20 mg tablet RxNorm: 645593 Take 1 Tablet(s) Oral every night at bedtime 2021 Inactive Cleocin T 1 % lotion RxNorm: 106997 Take 2 Gram(s) Topical every day 022 2021 Inactive Cleocin T 1 % lotion RxNorm: 589489 Take 2 Gram(s) Topical every day 022 2021 Inactive Ozempic 1 mg/dose (4 mg/3 mL) subcutaneous pen injector RxNorm: 7272932 Take 1 Unit Dose Subcutaneous QWeek 022 2021 Inactive Ozempic 0.25 mg or 0.5 mg (2 mg/1.5 mL) subcutaneous pen injector RxNorm: 0830501 INJECT 0.5 MGS SUBCUTANEOUSLY EVERY WEEK 022 07/17/ 2022 Inactive omeprazole 20 mg capsule,delayed release RxNorm: 384808 Take 1 Capsule(s) Oral every evening 022 2021 Inactive levothyroxine 50 mcg tablet RxNorm: 156454 Take 1 Tablet(s) Oral every day 022 2021 Inactive atorvastatin 20 mg tablet RxNorm: 130612 Take 1 Tablet(s) Oral every night at bedtime 2021 Inactive This refill negates all other refills of this medication lisinopril 2.5 mg tablet RxNorm: 662758 Take 1 Tablet(s) Oral every day 022 2021 Inactive gabapentin 300 mg capsule RxNorm: 470106 Take 1 Capsule(s) Oral three times a day 022 2021 Inactive montelukast 10 mg tablet RxNorm: 499115 Take 1 Tablet(s) Oral every day 2021 Inactive Myrbetriq 50 mg tablet,extended release RxNorm: 0547014 1 Tablet(s) Oral every day No Stop Date Active cholecalciferol (vitamin D3) 50 mcg (2,000 unit) tablet RxNorm: 424216 Take 1 Tablet(s) Oral every day 022 2022 Inactive Ozempic 0.25 mg or 0.5 mg (2 mg/1.5 mL) subcutaneous pen injector RxNorm: 1686024 inject 0.5 milligrams subcutaneously every week 2021 Inactive Ozempic 0.25 mg or 0.5 mg (2 mg/1.5 mL) subcutaneous pen injector RxNorm: 9986475 Take 0.5 Capsule(s) Injection once a week 022 2021 Inactive omeprazole 20 mg capsule,delayed release RxNorm: 273485 Take 1 Capsule(s) Oral every evening 2020 Inactive Ozempic 0.25 mg or 0.5 mg (2 mg/1.5 mL) subcutaneous pen injector RxNorm: 4253263 Take 0.25 Milligram(s) Subcutaneous once a week 2021 Inactive Easy Touch Alcohol Prep Pads RxNorm: 769116 USE DIRECTED EACH MORNING 2021 Inactive Probiotic 10 billion cell capsule RxNorm: 2787929 Take 1 Capsule(s) Oral every day 2021 Inactive levothyroxine 50 mcg tablet RxNorm: 570628 Take 1 Tablet(s) Oral every day 2020 Inactive Acid Observatory Director (famotidine) 20 mg tablet RxNorm: 423010 Take 1 Tablet(s) Oral every morning 2020 Inactive Heartburn Relief (famotidine) 10 mg tablet RxNorm: 478033 Take 1 Tablet(s) Oral QAM 2020 Inactive levothyroxine 50 mcg tablet RxNorm: 519767 Take 1 Tablet(s) Oral QD 2020 Inactive Singulair 10 mg tablet RxNorm: 378612 TAKE (1) TABLET BY MOUTH DAILY 2020 Inactive metformin 1,000 mg tablet RxNorm: 540058 1 Tablet(s) Oral two times a day 2021 Inactive lisinopril 2.5 mg tablet RxNorm: 637048 Take 1 Tablet(s) Oral every day 021 2020 Inactive hydrochlorothiazide 25 mg tablet RxNorm: 326791 Take 1 Tablet(s) Oral every day 021 2020 Inactive ondansetron 4 mg disintegrating tablet RxNorm: 701627 1 Tablet(s) Oral two times a day 021 2020 Inactive Sudafed 12 Hour 120 mg tablet,extended release RxNorm: 3166711 TAKE 1 TABLET BY MOUTH EVERY 12 HOURS NEEDED 2021 Inactive Heartburn Relief (famotidine) 10 mg tablet RxNorm: 960630 Take 1 Tablet(s) Oral every morning 021 2020 Inactive omeprazole 20 mg capsule,delayed release RxNorm: 469659 1 Capsule(s) Oral every evening 021 2020 Inactive sertraline 100 mg tablet RxNorm: 505249 2 Tablet(s) Oral every day 021 2020 Inactive levothyroxine 50 mcg tablet RxNorm: 705584 TAKE (1) TABLET BY MOUTH DAILY 021 2020 Inactive metformin 500 mg tablet RxNorm: 039355 1 Tablet(s) Oral two times a day take with 500mg to equal 1000mg 021 2020 Inactive gabapentin 300 mg capsule RxNorm: 868417 TAKE 1 CAPSULE BY MOUTH THREE TIMES A DAY 021 2020 Inactive lisinopril 2.5 mg tablet RxNorm: 127011 TAKE 1 TABLET BY MOUTH DAILY 021 2020 Inactive gabapentin 300 mg capsule RxNorm: 818803 TAKE 1 CAPSULE BY MOUTH THREE TIMES A DAY 021 2020 Inactive Singulair 10 mg tablet RxNorm: 893393 TAKE (1) TABLET BY MOUTH DAILY 021 2020 Inactive metformin 1,000 mg tablet RxNorm: 298235 1 Tablet(s) Oral two times a day 021 2020 Inactive atorvastatin 40 mg tablet RxNorm: 219213 1 Tablet(s) Oral every day 021 2020 Inactive omeprazole 20 mg capsule,delayed release RxNorm: 856254 1 Capsule(s) Oral every evening 021 2020 Inactive famotidine 10 mg tablet RxNorm: 365428 1 Tablet(s) Oral every morning 021 2020 Inactive Alcohol Prep Pads RxNorm: 264170 USE EACH MORNING 021 2020 Inactive omeprazole 20 mg capsule,delayed release RxNorm: 363912 1 Capsule(s) Oral two times a day 021 2021 Inactive omeprazole 20 mg capsule,delayed release RxNorm: 700317 TAKE 1 CAPSULE BY MOUTH EVERY DAY 021 2021 Inactive Macrobid 100 mg capsule RxNorm: 889689 1 Capsule(s) Oral every 12 hours with food 2020 Inactive omeprazole 20 mg capsule,delayed release RxNorm: 403065 1 Capsule(s) Oral two times a day 2021 Inactive metformin 1,000 mg tablet RxNorm: 764466 1 Tablet(s) Oral two times a day 2020 Inactive start on September 11, 2020 metformin 500 mg tablet RxNorm: 086177 1 Tablet(s) Oral two times a day take with 500mg to equal 1000mg 2019 Inactive gabapentin 300 mg capsule RxNorm: 672663 TAKE 1 CAPSULE BY MOUTH THREE TIMES DAILY 2020 Inactive cetirizine 10 mg tablet RxNorm: 9166140 TAKE (1) TABLET BY MOUTH DAILY 2020 Inactive metformin 500 mg tablet RxNorm: 024043 1 Tablet(s) Oral two times a day 2019 Inactive loperamide 2 mg tablet RxNorm: 351656 1 Tablet(s) Oral as needed take one tablet after each loose stool, maximum of 8 tablets in 24 hours 2021 Inactive Sudafed 12 Hour 120 mg tablet,extended release RxNorm: 8183448 TAKE 1 TABLET BY MOUTH EVERY 12 HOURS NEEDED 2019 Inactive hydrochlorothiazide 25 mg tablet RxNorm: 094660 TAKE (1) TABLET BY MOUTH EVERY DAY 2019 Inactive omeprazole 20 mg capsule,delayed release RxNorm: 074854 TAKE 1 CAPSULE BY MOUTH EVERY DAY 2020 Inactive metformin 500 mg tablet RxNorm: 937834 1 Tablet(s) Oral every day 2019 Inactive True Metrix Glucose Test Strip RxNorm: 1 Test Strips Miscellaneous two times a day as needed No Stop Date Active metformin 500 mg tablet RxNorm: 242376 1 Tablet(s) Oral every day 2019 Inactive diclofenac sodium 75 mg tablet,delayed release RxNorm: 649373 1 Tablet(s) PO BID 020 2021 Inactive This refill negates all other refills of this medication Sudafed 12 Hour 120 mg tablet,extended release RxNorm: 5339700 TAKE 1 TABLET BY MOUTH EVERY 12 HOURS NEEDED 020 2019 Inactive True Metrix Glucose Test Strip RxNorm: 1 Test Strips Miscellaneous every morning 020 2019 Inactive 100/container True Metrix Glucose Test Strip RxNorm: 1 Test Strips Miscellaneous QAM 020 2019 Inactive 100/container loperamide 2 mg tablet RxNorm: 322859 1 Tablet(s) Oral as needed take one tablet after each loose stool, maximum of 8 tablets in 24 hours 020 2019 Inactive cetirizine 10 mg tablet RxNorm: 2608475 1 Tablet(s) PO daily 020 2019 Inactive loperamide 2 mg tablet RxNorm: 356021 1 Tablet(s) Oral as needed take one tablet after each loose stool, maximum of 8 tablets in 24 hours 2019 Inactive quetiapine 100 mg tablet RxNorm: 075076 1 Tablet(s) Oral every night at bedtime 020 2019 Inactive levothyroxine 50 mcg tablet RxNorm: 449904 1 Tablet(s) PO daily 020 2020 Inactive gabapentin 300 mg capsule RxNorm: 327745 1 Capsule(s) PO TID 020 2019 Inactive levothyroxine 50 mcg tablet RxNorm: 307991 1 Tablet(s) PO daily 020 2019 Inactive lisinopril 2.5 mg tablet RxNorm: 884087 1 Tablet(s) PO daily 020 2020 Inactive gabapentin 300 mg capsule RxNorm: 994410 1 Capsule(s) PO TID 020 2019 Inactive cetirizine 10 mg tablet RxNorm: 3746170 1 Tablet(s) PO daily 020 2019 Inactive Singulair 10 mg tablet RxNorm: 409419 1 Tablet(s) PO daily 020 2020 Inactive gentamicin 0.3 % eye drops RxNorm: 717951 1 Drop(s) ophthalmic (eye) four times a day 2019 Inactive gentamicin 0.3 % eye drops RxNorm: 209693 1 Drop(s) ophthalmic (eye) four times a day 2019 Inactive gentamicin 0.3 % eye drops RxNorm: 126148 1 Drop(s) ophthalmic (eye) four times a day 2019 Inactive hydrochlorothiazide 25 mg tablet RxNorm: 780526 1 Tablet(s) Oral every day 2019 Inactive Sudafed 12 Hour 120 mg tablet,extended release RxNorm: 2724962 TAKE (1) TABLET BY MOUTH EVERY 12 HOURS NEEDED 2019 Inactive loperamide 2 mg tablet RxNorm: 525834 1 Tablet(s) Oral as needed take one tablet after each loose stool, maximum of 8 tablets in 24 hours 2019 Inactive loperamide 2 mg tablet RxNorm: 364569 1 Tablet(s) Oral as needed take one tablet after each loose stool, maximum of 8 tablets in 24 hours 2019 Inactive atorvastatin 40 mg tablet RxNorm: 234021 1 Tablet(s) Oral every day 2020 Inactive quetiapine 100 mg tablet RxNorm: 029516 1 Tablet(s) Oral every night at bedtime 2019 Inactive sertraline 100 mg tablet RxNorm: 640252 1 Tablet(s) Oral 2019 Inactive omeprazole 20 mg capsule,delayed release RxNorm: 126380 1 Capsule(s) Oral every day 020 2019 Inactive amoxicillin 250 mg capsule RxNorm: 881135 1 Capsule(s) Oral three times a day 020 2019 Inactive multivitamin with iron-mineral tablet RxNorm: 1 Tablet(s) Oral every day 020 2021 Inactive cetirizine 10 mg tablet RxNorm: 4141485 1 Tablet(s) PO daily 2019 Inactive This refill negates all other refills of this medication. Please do not auto refill Singulair 10 mg tablet RxNorm: 260994 1 Tablet(s) PO daily 2019 Inactive This refill negates all other refills of this medication gabapentin 300 mg capsule RxNorm: 601275 1 Capsule(s) PO TID 2019 Inactive lisinopril 2.5 mg tablet RxNorm: 296674 1 Tablet(s) PO daily 2019 Inactive levothyroxine 50 mcg tablet RxNorm: 139909 1 Tablet(s) PO daily 2019 Inactive This refill negates all other refills of this medication hydrochlorothiazide 25 mg tablet RxNorm: 131817 1 Tablet(s) Oral every day 2019 Inactive fenugreek seed extract 500 mg capsule RxNorm: 1 Capsule(s) Oral three times a day 020 2021 Inactive Alcohol Prep Pads RxNorm: 412912 1 Patch TOP QAM 020 2020 Inactive loperamide 2 mg tablet RxNorm: 149844 1 Tablet(s) Oral as needed take one [...] 2019 Inactive hydrochlorothiazide 25 mg tablet RxNorm: 907791 1 Tablet(s) Oral every day 019 2019 Inactive Sudafed 12 Hour 120 mg tablet,extended release RxNorm: 4985697 1 Tablet(s) Oral every 12 hours as needed 2018 Inactive omeprazole 20 mg capsule,delayed release RxNorm: 033231 1 Capsule(s) Oral every day 019 2019 Inactive Sudafed 12 Hour 120 mg tablet,extended release RxNorm: 2519181 1 Tablet(s) Oral every 12 hours as needed 2018 Inactive pantoprazole 40 mg tablet,delayed release RxNorm: 531863 1 Tablet(s) Oral every day 2018 Inactive discontinue any other H2Blkr. and PPI albuterol sulfate 2.5 mg/3 mL (0.083 %) solution for nebulization RxNorm: 460631 1 Vial Inhalation every four hours as needed as needed for dyspnea 2019 Inactive 60/box. This refill negates all other refills of this medication. Please do not fill early. Please do not auto refill. Symbicort 160 mcg-4.5 mcg/actuation HFA aerosol inhaler RxNorm: 3351062 2 Puff(s) INH BID No Stop Date Active Alcohol Prep Pads RxNorm: 737832 1 Patch TOP QAM 019 2019 Inactive Ventolin HFA 90 mcg/actuation aerosol inhaler RxNorm: 604182 2 Puff(s) INH QID 2019 Inactive Please do not fill early. Please do not auto refill. This refill negates all other refills of this medication True Metrix Glucose Test Strip RxNorm: 1 Test Strips Miscellaneous QAM 019 2019 Inactive 100/container atorvastatin 40 mg tablet RxNorm: 349444 1 Tablet(s) Oral every day 019 2019 Inactive buspirone 7.5 mg tablet RxNorm: 741904 1 Tablet(s) PO BID 019 2020 Inactive This refill negates all other refills of this medication hydrochlorothiazide 12.5 mg tablet RxNorm: 115889 1 Tablet(s) PO QAM 019 2019 Inactive levmetamfetamine 50 mg nasal inhaler RxNorm: 1 Unit(s) NASAL Q3-4H Do not use more than every 3 hours or 8 times/24hours 019 2021 Inactive Please do not auto refill. This refill negates all other refills of this medication Ventolin HFA 90 mcg/actuation aerosol inhaler RxNorm: 698748 2 Puff(s) INH QID 2018 Inactive Please do not fill early. Please do not auto refill. This refill negates all other refills of this medication Singulair 10 mg tablet RxNorm: 007997 1 Tablet(s) PO daily 019 2019 Inactive This refill negates all other refills of this medication cetirizine 10 mg tablet RxNorm: 5215262 1 Tablet(s) PO daily 019 2019 Inactive This refill negates all other refills of this medication. Please do not auto refill levothyroxine 50 mcg tablet RxNorm: 426478 1 Tablet(s) PO daily 019 2019 Inactive This refill negates all other refills of this medication diclofenac sodium 75 mg tablet,delayed release RxNorm: 560213 1 Tablet(s) PO BID 019 2019 Inactive This refill negates all other refills of this medication ranitidine 150 mg tablet RxNorm: 620670 1 Tablet(s) PO BID 019 2018 Inactive This refill negates all other refills of this medication Calcium 600-D3 Plus (mag-zinc) 600 mg calcium-800 unit-50 mg tablet RxNorm: 1 Tablet(s) PO daily take an additonal tablet for itching. 019 2018 Inactive This refill negates all other refills of this medication albuterol sulfate 2.5 mg/3 mL (0.083 %) solution for nebulization RxNorm: 288455 1 Vial INH QID 019 2018 Inactive 60/box. This refill negates all other refills of this medication. Please do not fill early. Please do not auto refill. lisinopril 2.5 mg tablet RxNorm: 593675 1 Tablet(s) PO daily 019 2019 Inactive gabapentin 300 mg capsule RxNorm: 564634 1 Capsule(s) PO TID 019 2019 Inactive atorvastatin 20 mg tablet RxNorm: 530206 1 Tablet(s) PO QHS 2018 Inactive This refill negates all other refills of this medication TRUEplus Lancets 30 gauge RxNorm: 1 Lancets Miscellaneous QAM 019 2018 Inactive 100/box gabapentin 300 mg capsule RxNorm: 962483 1 Capsule(s) PO TID 019 2018 Inactive Flintstones Complete (iron) 18 mg iron chewable tablet RxNorm: 1 Tablet(s) PO daily 019 2021 Inactive This refill negates all other refills of this medication gabapentin 300 mg capsule RxNorm: 273262 1 Capsule(s) PO TID as needed 019 2018 Inactive True Metrix Glucose Test Strip RxNorm: 1 Test Strips Miscellaneous QAM 019 2018 Inactive 100/container Alcohol Prep Pads RxNorm: 668028 1 Patch TOP QAM 019 2018 Inactive TRUEplus Lancets 30 gauge RxNorm: 1 Lancets Miscellaneous QAM 019 2018 Inactive 100/box lisinopril 2.5 mg tablet RxNorm: 693537 1 Tablet(s) PO daily 019 2018 Inactive ranitidine 150 mg tablet RxNorm: 558246 1 Tablet(s) PO BID 019 2018 Inactive This refill negates all other refills of this medication albuterol sulfate 2.5 mg/3 mL (0.083 %) solution for nebulization RxNorm: 514938 1 Vial INH QID 019 2018 Inactive [...] this medication gabapentin 300 mg capsule RxNorm: 610503 1 Capsule(s) PO TID as needed 019 2018 Inactive atorvastatin 20 mg tablet RxNorm: 560967 1 Tablet(s) PO QHS 019 2018 Inactive This refill negates all other refills of this medication trazodone 50 mg tablet RxNorm: 113891 1 Tablet(s) PO QHS 019 2018 Inactive This refill negates all other refills of this medication Ventolin HFA 90 mcg/actuation aerosol inhaler RxNorm: 150263 2 Puff(s) INH QID 019 2018 Inactive Please do not fill early. Please do not auto refill. This refill negates all other refills of this medication Calcium 600-D3 Plus 600 mg calcium-800 unit-50 mg tablet RxNorm: 1 Tablet(s) PO daily take an additonal tablet for itching. 019 2018 Inactive This refill negates all other refills of this medication Singulair 10 mg tablet RxNorm: 762421 1 Tablet(s) PO daily 019 2018 Inactive This refill negates all other refills of this medication buspirone 7.5 mg tablet RxNorm: 806550 1 Tablet(s) PO BID 019 2018 Inactive This refill negates all other refills of this medication diclofenac sodium 75 mg tablet,delayed release RxNorm: 097910 1 Tablet(s) PO BID 019 2018 Inactive This refill negates all other refills of this medication hydrochlorothiazide 12.5 mg tablet RxNorm: 303885 1 Tablet(s) PO QAM 019 2018 Inactive metoprolol succinate ER 50 mg tablet,extended release 24 hr RxNorm: 814614 1 Tablet(s) PO daily 019 2018 Inactive This refill negates all other refills of this medication levothyroxine 50 mcg tablet RxNorm: 749644 1 Tablet(s) PO daily 019 2018 Inactive This refill negates all other refills of this medication cetirizine 10 mg tablet RxNorm: 2039601 1 Tablet(s) PO daily 019 2018 Inactive This refill negates all other refills of this medication. Please do not auto refill Flintstones Complete (iron) 18 mg iron chewable tablet RxNorm: 1 Tablet(s) PO daily 019 2018 Inactive This refill negates all other refills of this medication buspirone 7.5 mg tablet RxNorm: 162006 1 Tablet(s) PO BID 019 2018 Inactive cetirizine 10 mg tablet RxNorm: 6471632 1 Tablet(s) PO daily 2018 Inactive Guaiasorb DM 10 mg-100 mg/5 mL oral liquid RxNorm: 122907 10 Milliliter(s) PO As needed every 4 hr 2018 Inactive Vicks Vaporub 4.7 %-1.2 %-2.6 % topical ointment RxNorm: 9579058 1 Application TOP TID 2018 Inactive levmetamfetamine 50 mg nasal inhaler RxNorm: 1 Unit(s) NASAL Q3-4H 018 2017 Inactive sertraline 50 mg tablet RxNorm: 933175 1 Tablet(s) PO daily 018 2018 Inactive Please note dose trazodone 50 mg tablet RxNorm: 335380 1 Tablet(s) PO QHS 018 2018 Inactive sertraline 50 mg tablet RxNorm: 014647 1 Tablet(s) PO daily 018 2017 Inactive amoxicillin 500 mg tablet RxNorm: 983781 1 Tablet(s) PO Q12H 018 2017 Inactive albuterol sulfate 2.5 mg/3 mL (0.083 %) solution for nebulization RxNorm: 457226 1 Vial INH QID 018 2018 Inactive 60/box. Please do not fill early. Please do not auto refill. Prozac 10 mg capsule RxNorm: 950368 1 Capsule(s) PO daily 018 2017 Inactive buspirone 7.5 mg tablet RxNorm: 106223 1 Tablet(s) PO BID 018 2018 Inactive gabapentin 300 mg capsule RxNorm: 786488 1 Capsule(s) PO TID as needed 018 2018 Inactive hydrochlorothiazide 12.5 mg tablet RxNorm: 260086 1 Tablet(s) PO QAM 018 2018 Inactive ranitidine 150 mg tablet RxNorm: 800977 1 Tablet(s) PO BID 018 2018 Inactive Macrobid 100 mg capsule RxNorm: 617423 1 Capsule(s) PO Q12H 018 2017 Inactive Singulair 10 mg tablet RxNorm: 124919 1 Tablet(s) PO daily 018 2018 Inactive Ventolin HFA 90 mcg/actuation aerosol inhaler RxNorm: 1963942 2 Puff(s) INH QID 018 2018 Inactive Singulair 10 mg tablet RxNorm: 443926 1 Tablet(s) PO daily 018 2017 Inactive buspirone 7.5 mg tablet RxNorm: 992571 1 Tablet(s) PO BID 018 2017 Inactive Prozac 10 mg capsule RxNorm: 735052 1 Capsule(s) PO daily 018 2017 Inactive diclofenac sodium 75 mg tablet,delayed release RxNorm: 156276 1 Tablet(s) PO BID 018 2017 Inactive lisinopril 2.5 mg tablet RxNorm: 344418 1 Tablet(s) PO daily 018 2017 Inactive Neilmed Pediatric Sinus Rinse Refill packet RxNorm: 1 Unit Dose NASAL PRN 018 2021 Inactive metoprolol succinate ER 50 mg tablet,extended release 24 hr RxNorm: 886182 1 Tablet(s) PO daily 018 2017 Inactive levothyroxine 50 mcg tablet RxNorm: 783582 1 Tablet(s) PO daily 018 2017 Inactive TRUEplus Lancets 30 gauge RxNorm: 1 Lancets Miscellaneous QAM 018 2017 Inactive 100/box Ventolin HFA 90 mcg/actuation aerosol inhaler RxNorm: 784032 2 Puff(s) INH QID 018 2017 Inactive Aleve 220 mg capsule RxNorm: 0782671 1 Capsule(s) PO BID 018 2018 Inactive ranitidine 150 mg tablet RxNorm: 012694 1 Tablet(s) PO BID 018 2017 Inactive gabapentin 300 mg capsule RxNorm: 674811 1 Capsule(s) PO TID as needed 018 2017 Inactive atorvastatin 20 mg tablet RxNorm: 676568 1 Tablet(s) PO QHS 018 2017 Inactive True Metrix Glucose Test Strip RxNorm: 1 Test Strips Miscellaneous QAM 018 2017 Inactive 50/container Calcium 600-D3 Plus 600 mg calcium-800 unit-50 mg tablet RxNorm: 1 Tablet(s) PO daily take an additonal tablet for itching. 018 2017 Inactive hydrochlorothiazide 12.5 mg tablet RxNorm: 626887 1 Tablet(s) PO QAM 018 2017 Inactive Flintstones Complete (iron) 18 mg iron chewable tablet RxNorm: 1 Tablet(s) PO daily 018 2017 Inactive True Metrix Glucose Meter RxNorm: miscellaneous 019 2018 Inactive sertraline 50 mg tablet RxNorm: 485543 1 Tablet(s) PO daily 020 2019 Inactive loperamide 2 mg tablet RxNorm: 003668 oral 019 2018 Inactive d-mannose oral powder RxNorm: PO 018 2021 Inactive Symbicort 160 mcg-4.5 mcg/actuation HFA aerosol inhaler RxNorm: 1225913 2 Puff(s) INH BID 2018 Inactive Medication Administered No Medication Administered data Procedures Procedure Codes Date Urinalysis, dip stick CPT-4: 40193 05/04/2023 [place] Assessment CPT-4: DSWA 01/02 Fall Risk Assessment CPT-4: DFRA 01/27/2023 Hypertension CPT-4: HTN 01/27/2023 Patient Health Questionnaire CPT-4: DPHQ Pain Screening CPT-4: PAS 2022 Tobacco Assessment/Screening CPT-4: TCA Hypertension CPT-4: HTN 08/17/2022 [place] F[place] Assessment CPT-4: DSWA 04/02 Patient Health [...] CPT-4: VACP Fall Risk Assessment SNOMED CT: 67722462 4 CPT-4: DFRA 01/13/2021 [place] Assessment CPT-4: DSWA 12/01 Urinalysis, dip stick CPT-4: 76589 09/24/2020 Patient Health Questionnaire CPT-4: DPHQ Electrocardiogram CPT-4: 53362 05/14/2020 Tobacco Assessment/Screening CPT-4: TCA Fall Risk Assessment SNOMED CT: 03510949 4 CPT-4: DFRA 01/01/2020 Functional Assessment CPT-4: DFA 01/01/2020 [place] Assessment CPT-4: DSWA 11/04 Patient Health Questionnaire CPT-4: DPHQ [place] Assessment CPT-4: DSWA 10/03 Hypertension CPT-4: HTN 10/17/2019 Fall Risk Assessment SNOMED CT: 51407892 4 CPT-4: DFRA 09/19/2019 Functional Assessment CPT-4: DFA 09/19/2019 Urinalysis, dip stick CPT-4: 65489 06/21/2019 Tobacco Assessment/Screening CPT-4: TCA Patient Health Questionnaire CPT-4: DPHQ AHA/REBECCA Classification Assessment CPT-4: DAHA 04/25/2019 Controlled Substance Report CPT-4: CTRSU 04/03 Urinalysis, dip stick CPT-4: 54173 03/28/2019 Urinalysis, dip stick CPT-4: 30442 03/28/2019 O7D-Keayzodboxrlspy CPT-4: 01489 Unknown W8S-Kodhvrydtejdvtt CPT-4: 34623 Unknown T9Q-Nwwghjtstkicagj CPT-4: 42762 Unknown T4Z-Wapvdgrrxkwpzju CPT-4: 88752 Unknown J1P-Qewofsumwzpfdoj CPT-4: 73559 Unknown C1N-Exkaebzpjgpryey CPT-4: 09540 Unknown S3C-Drybvyptoekcsmz CPT-4: 11458 Unknown B7T-Krzzbjwgwropkhc CPT-4: 06893 Unknown X2X-Leisuvrlrvsexzq CPT-4: 46530 Unknown Q1N-Oxurrcbhrcsresv CPT-4: 26254 Unknown N3E-Hqcgfqvntapbxyl CPT-4: 61370 Unknown I3L-Fbqgjxtmhzryrwr CPT-4: 75381 Unknown [facility] 7[facility]75[facility] CPT-4: R14 Unknown Reason For Visit No Reason For Visit data Plan of Care Planned Activity Notes Codes Status Date Patient Education: Patient Medication Summary Completed 06/03/2023 Appointment: Anna Culver WPtel: [address] [place] [address] E410 05/04/2023 Appointment: Anna Culver WPtel: [address] [place] [address] E410 01/27/2023 Appointment: Anna Culver WPtel: [address] [place] [address] E410 11/23/2022 Appointment: Anna Culver WPtel: [address] [place] [address] E410 2022 Appointment: Anna Culver WPtel: [address] [place] [address] E410 08/17/2022 Appointment: Anna Culver WPtel: [address] [place] [address] E410 06/23/2022 Appointment: Chivo Bishop WPtel: [address] [place] [address] E410 04/19/2022 Appointment: Chivo Bishop WPtel: [address] [place] [address] E410 02/11/2022 Appointment: Mikey Nair WPtel: [address] [place] [address] 202b [id number] [place] E410 12/03/2021 Appointment: Chivo Bishop WPtel: [address] [place] [address] E410 11/02/2021 Appointment: Chivo Bishop WPtel: [address] [place] [address] E410 10/07/2021 Appointment: Chivo Bishop WPtel: [address] [place] [address] ETV 09/10/2021 Appointment: Chivo Bishop WPtel: [address] [place] [address] ETV 08/13/2021 Appointment: Chivo Bishop WPtel: [address] [place] [address] ETV 07/06/2021 Appointment: Chivo Bishop WPtel: [address] [place] [address] PHTV 06/10/2021 Appointment: Anna Culver WPtel: [address] [place] [address] ETV 06/02/2021 Appointment: Chivo Bishop WPtel: [address] [place] [address] ETV 05/20/2021 Appointment: Anna Culver WPtel: [address] [place] [address] ETV 04/28/2021 Appointment: Chivo Bishop WPtel: [address] [place] [address] ETV 04/15/2021 Appointment: Anna Culver WPtel: [address] [place] [address] E410 04/01/2021 Appointment: Anna Culver WPtel: [address] [place] [address] ETV 03/24/2021 Appointment: Anna Culver WPtel: [address] [place] [address] ETV 03/13/2021 Appointment: Anna Culver WPtel: [address] [place] [address] E410 02/11/2021 Appointment: Chivo Bishop WPtel: [address] [place] [address] E410 01/29/2021 Appointment: Anna Culver WPtel: [address] [place] [address] ETV 01/13/2021 Appointment: Anna Culver WPtel: [address] [place] [address] E410 12/17/2020 Appointment: Chivo Bishop WPtel: [address] [place] [address] ETV 11/28/2020 Appointment: Anna Culver WPtel: [address] [place] [address] ETV 11/24/2020 Appointment: Anna Culver WPtel: [address] [place] [address] E410 10/29/2020 Appointment: Anna Culver WPtel: [address] [place] [address] E410 09/24/2020 Appointment: Anna Culver WPtel: [address] [place] [address] [place] ETV 08/26/2020 Appointment: Anna Culver WPtel: [address] [place] [address] ETV 08/19/2020 Appointment: Anna Culver WPtel: [address] [place] [address] ETV 07/22/2020 Appointment: Anna Culver WPtel: [address] [place] [address] ETV 07/08/2020 Appointment: Gianna Birmingham Lita: [address] [facility] [address] [id number] [place] ECHO 07/02/2020 Appointment: Anna Culver WPtel: [id number] [place] [address] [place] E452 06/11/2020 Appointment: Anna Culver WPtel: [phone] [place] [address] [place] E452 05/14/2020 Appointment: Anna Culver WPtel: [address] [place] [address] E452 04/17/2020 Appointment: Anna Culver WPtel: [address] [place] [address] E452 03/21/2020 Appointment: Anna Culver WPtel: [address] [place] [address] E452 02/14/2020 Appointment: Anna Culver WPtel: [address] [place] [address] [place] E452 01/24/2020 Appointment: Anna Culver WPtel: [address] [place] [address] [place] E452 01/01/2020 Appointment: Anna Culver WPtel: [address] [place] [address] [place] E452 11/28/2019 Appointment: Anna Culver WPtel: [id number] [place] [address] [place] E452 10/17/2019 Appointment: Anna Culver WPtel: [address] [place] [address] [place] E452 09/19/2019 Appointment: Sudha Hernadez WPtel: [address] [facility] 202b [id number] [place] E452 07/04/2019 Appointment: Sudha Henradez WPtel: [address] [facility] b [id number] E452 06/21/2019 Appointment: Charlene Oropeza WPtel: [address] [facility] [id number] E452 05/24/2019 Appointment: Mallory Delgado E452 04/27/2019 Appointment: Charlene Oropeza WPtel: [address] [facility] [id number] E452 04/25/2019 Appointment: Rasta Palafox WPtel: [address] [facility] [id number] E452 03/28/2019 Appointment: Rasta Palafox WPtel: [address] [place] [address] [id number] E452 02/14/2019 Appointment: Rasta Palafox WPtel: [address] [facility] [id number] E452 01/31/2019 Appointment: Rasta Palafox WPtel: [address] [place] [address] [id number] E420 12/27/2018 Referral: Pending Gynecology Referral Information Referral Processed Referral: Pending Pulmonolog y Referral Information Referral Processed Referral: Pending Psychiatry Referral Information Referral Initiated Referral: Pending Respirator y Services Referral Information Referral Initiated Referral: Pending Ophthalmology Referral Information Referral Initiated Referral: [facility] WPtel: 8 [facility] [address] Paradichlorobenz[employer] Machine Operator placed a call out to the patient to notify her that it has been recommended that she be seen by 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 Patient agreed to be seen, does not have a provider of choice and no transportation issues. Paradichlorobenz[employer] Machine Operator faxed referral and clinical notes to [facility] in [place], [place] near the patient's home. Patient to [...] seen and prefers a provider in the [place] or [place] area. Paradichlorobenzene Machine Operator placed a call out to everyone listed in the area and the only location that was able to accept the patient's insurance was [facility] [place] [address] and spoke with Maylin. Maylin asked that the patient's referral, face sheet and visit notes be faxed to . Paradichlorobenz[employer] Machine Operator faxed over requested documents. Patient appointment confirmation letter generated and mailed to her home address. Patient to call to schedule an appointment. Processed Referral: [facility] WPtel: [address] [place] [address] Patient notified that it has been advised that she be seen by Neurology. Patient agreed to be seen and prefers to be seen by a provider in the [place], [place] area. Patient denies any concerns with transportation, and prefers to schedule her own appointment. Paradichlorobenzene Machine Operator placed a call out to [facility] and spoke with Neeraj [...]
--- OUTSIDE RECORDS SUMMARY | 2023-12-07 02:08 | XMS_ITS | CCD ---
Author Name Leena Culver NP Address [address] [place] [address] [address] [place] [address] Phone Organization [facility] Phone Care Team Providers Care Assistant Controller Name Role Phone Anna Culver NP Primary Care Provider Unav ailable Unavailable Chronic Care Management Unavaila ble Summary Purpose DataExchange Insurance Providers Payer name Policy type / Coverage type Covered alliance party ID Effective Begin Date Effective End Date SUKI MAYO [id number] Unknown Unknown Family history Mother Diagnosis Age [...] Unknown Disability 05/31/[address]: 803407195 Has never s moked or chewed tobacco 05/31/[address]: 703341162 Never drinks alco hol 05/31/2018 Has the [...] ICD-10: Z12.4 ICD-9: V76.2 04/25/2019 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 [...] Headache ICD-10: R51 ICD-9: 784.0 10/03/2018 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-inflammatories (NSAID) ICD-10: Z79.1 ICD-9: V58.64 06/13/2018 Active Medications Medication Codes Instructions Start Date Stop Date Status Fill Instructions fenugreek seed extract 500 mg capsule RxNorm: 1 Capsule(s) Oral three times a day 09/19/20 19 2019 Inactive hydrochlorothiazide 25 mg tablet RxNorm: 153845 1 Tablet(s) Oral every day 09/19/202019 Inactive Sudafed 12 Hour 120 mg tablet,extended release RxNorm: 0466097 1 Tablet(s) Oral every 12 hours as needed 09/11/20 19 2018 Inactive omeprazole 20 mg capsule,delayed release RxNorm: 396323 1 Capsule(s) Oral every day 09/07/20 19 2019 Inactive Sudafed 12 Hour 120 mg tablet,extended release RxNorm: 7301703 1 Tablet(s) Oral every 12 hours as needed 09/04/20 19 2018 Inactive pantoprazole 40 mg tablet,delayed release RxNorm: 034927 1 Tablet(s) Oral every day 08/24/202018 Inactive discontinue any other H2Blkr. and PPI Alcohol Prep Pads RxNorm: 015102 1 Patch TOP QAM 08/17/20 19 2019 Inactive albuterol sulfate 2.5 mg/3 mL (0.083 %) solution for nebulization RxNorm: 703461 1 Vial Inhalation every four hours as needed as needed for dyspnea 08/17/20 19 2019 Inactive 60/box. This refill negates all other refills of this medication. Please do not fill early. Please do not auto refill. Symbicort 160 mcg-4.5 mcg/actuation HFA aerosol inhaler RxNorm: 7156069 2 Puff(s) INH BID 08/17/20 No Stop Date Active True Metrix Glucose Test Strip RxNorm: 1 Test Strips Miscellaneous QAM 08/09/20 19 2019 Inactive 100/container Ventolin HFA 90 mcg/actuation aerosol inhaler RxNorm: 032406 2 Puff(s) INH QID 08/09/20 19 2019 Inactive Please do not fill early. Please do not auto refill. This refill negates all other refills of this medication atorvastatin 40 mg tablet RxNorm: 484096 1 Tablet(s) Oral every day 07/04/20 19 2019 Inactive hydrochlorothiazide 12.5 mg tablet RxNorm: 320004 1 Tablet(s) PO QAM 06/26/20 19 2019 Inactive levmetamfetamine 50 mg nasal inhaler RxNorm: 1 Unit(s) NASAL Q3-4H Do not use more than every 3 hours or 8 times/24hours 06/26/20 19 2021 Inactive Please do not auto refill. This refill negates all other refills of this medication Singulair 10 mg tablet RxNorm: 492128 1 Tablet(s) PO daily 06/26/20 19 2019 Inactive This refill negates all other refills of this medication cetirizine 10 mg tablet RxNorm: 2063156 1 Tablet(s) PO daily 06/26/20 19 2019 Inactive This refill negates all other refills of this medication. Please do not auto refill levothyroxine 50 mcg tablet RxNorm: 316833 1 Tablet(s) PO daily 06/26/20 19 2019 Inactive This refill negates all other refills of this medication diclofenac sodium 75 mg tablet,delayed release RxNorm: 041289 1 Tablet(s) PO BID 06/26/20 19 2019 Inactive This refill negates all other refills of this medication buspirone 7.5 mg tablet RxNorm: 800858 1 Tablet(s) PO BID 06/26/202020 Inactive This refill negates all other refills of this medication Calcium 600-D3 Plus (mag-zinc) 600 mg calcium-800 unit-50 mg tablet RxNorm: 1 Tablet(s) PO daily take an additonal tablet for itching. 06/26/20 19 2018 Inactive This refill negates all other refills of this medication Ventolin HFA 90 mcg/actuation aerosol inhaler RxNorm: 558276 2 Puff(s) INH QID 06/26/20 19 2018 Inactive Please do not fill early. Please do not auto refill. This refill negates all other refills of this medication ranitidine 150 mg tablet RxNorm: 953383 1 Tablet(s) PO BID 06/26/20 19 2018 Inactive This refill negates all other refills of this medication albuterol sulfate 2.5 mg/3 mL (0.083 %) solution for nebulization RxNorm: 877966 1 Vial INH QID 06/26/20 19 2018 Inactive 60/box. This refill negates all other refills of this medication. Please do not fill early. Please do not auto refill. lisinopril 2.5 mg tablet RxNorm: 393797 1 Tablet(s) PO daily 06/21/20 19 2019 Inactive gabapentin 300 mg capsule RxNorm: 506421 1 Capsule(s) PO TID 06/21/20 19 2019 Inactive atorvastatin 20 mg tablet RxNorm: 873157 1 Tablet(s) PO QHS 06/07/20 19 2018 Inactive This refill negates all other refills of this medication TRUEplus Lancets 30 gauge RxNorm: 1 Lancets Miscellaneous QAM 05/29/20 19 2018 Inactive 100/box gabapentin 300 mg capsule RxNorm: 700223 1 Capsule(s) PO TID 05/03/20 19 2018 Inactive César Complete (iron) 18 mg iron chewable tablet RxNorm: 1 Tablet(s) PO daily 04/04/202021 Inactive This refill negates all other refills of this medication gabapentin 300 mg capsule RxNorm: 318070 1 Capsule(s) PO TID as needed 02/01/202018 Inactive True Metrix Glucose Test Strip RxNorm: 1 Test Strips Miscellaneous QAM 02/01/20 19 2018 Inactive 100/container Alcohol Prep Pads RxNorm: 669236 1 Patch TOP QAM 02/01/20 19 2018 Inactive TRUEplus Lancets 30 gauge RxNorm: 1 Lancets Miscellaneous QAM 02/01/20 19 2018 Inactive 100/box lisinopril 2.5 mg tablet RxNorm: 465303 1 Tablet(s) PO daily 12/28/19 19 2018 Inactive ranitidine 150 mg tablet RxNorm: 248986 1 Tablet(s) PO BID 10/21/192018 Inactive This refill negates all other refills of this medication albuterol sulfate 2.5 mg/3 mL (0.083 %) solution for nebulization RxNorm: 249795 1 Vial INH QID 10/21/192018 Inactive 60/box. [...] this medication gabapentin 300 mg capsule RxNorm: 851312 1 Capsule(s) PO TID as needed 10/21/192018 Inactive atorvastatin 20 mg tablet RxNorm: 374876 1 Tablet(s) PO QHS 10/21/19 19 2018 Inactive This refill negates all other refills of this medication trazodone 50 mg tablet RxNorm: 434026 1 Tablet(s) PO QHS 10/21/19 19 2018 Inactive This refill negates all other refills of this medication Ventolin HFA 90 mcg/actuation aerosol inhaler RxNorm: 835281 2 Puff(s) INH QID 10/21/192018 Inactive Please do not fill early. Please do not auto refill. This refill negates all other refills of this medication Calcium 600-D3 Plus 600 mg calcium-800 unit-50 mg tablet RxNorm: 1 Tablet(s) PO daily take an additonal tablet for itching. 10/21/192018 Inactive This refill negates all other refills of this medication Singulair 10 mg tablet RxNorm: 246066 1 Tablet(s) PO daily 10/21/192018 Inactive This refill negates all other refills of this medication buspirone 7.5 mg tablet RxNorm: 756638 1 Tablet(s) PO BID 10/21/192018 Inactive This refill negates all other refills of this medication diclofenac sodium 75 mg tablet,delayed release RxNorm: 709769 1 Tablet(s) PO BID 10/21/19 19 2018 Inactive This refill negates all other refills of this medication hydrochlorothiazide 12.5 mg tablet RxNorm: 980538 1 Tablet(s) PO QAM 10/21/19 19 2018 Inactive metoprolol succinate ER 50 mg tablet,extended release 24 hr RxNorm: 743933 1 Tablet(s) PO daily 10/21/192018 Inactive This refill negates all other refills of this medication levothyroxine 50 mcg tablet RxNorm: 014992 1 Tablet(s) PO daily 10/21/192018 Inactive This refill negates all other refills of this medication cetirizine 10 mg tablet RxNorm: 3690813 1 Tablet(s) PO daily 10/21/192018 Inactive This refill negates all other refills of this medication. Please do not auto refill Flintstones Complete (iron) 18 mg iron chewable tablet RxNorm: 1 Tablet(s) PO daily 10/21/19 19 2018 Inactive This refill negates all other refills of this medication buspirone 7.5 mg tablet RxNorm: 601743 1 Tablet(s) PO BID 10/12/19 19 2018 Inactive cetirizine 10 mg tablet RxNorm: 2336281 1 Tablet(s) PO daily 09/28/20 18 2018 Inactive Guaiasorb DM 10 mg-100 mg/5 mL oral liquid RxNorm: 945709 10 Milliliter(s) PO As needed every 4 hr 09/24/20 18 2018 Inactive Vicks Vaporub 4.7 %-1.2 %-2.6 % topical ointment RxNorm: 5365674 1 Application TOP TID 09/24/20 18 2018 Inactive levmetamfetamine 50 mg nasal inhaler RxNorm: 1 Unit(s) NASAL Q3-4H 09/24/20 18 2017 Inactive sertraline 50 mg tablet RxNorm: 941548 1 Tablet(s) PO daily 09/09/20 18 2018 Inactive Please note dose trazodone 50 mg tablet RxNorm: 768065 1 Tablet(s) PO QHS 09/06/20 18 2018 Inactive sertraline 50 mg tablet RxNorm: 913743 1 Tablet(s) PO daily 09/06/20 18 2017 Inactive amoxicillin 500 mg tablet RxNorm: 808838 1 Tablet(s) PO Q12H 08/31/20 18 2017 Inactive albuterol sulfate 2.5 mg/3 mL (0.083 %) solution for nebulization RxNorm: 504418 1 Vial INH QID 08/10/20 18 2018 Inactive 60/box. Please do not fill early. Please do not auto refill. Prozac 10 mg capsule RxNorm: 859080 1 Capsule(s) PO daily 08/09/20 18 2017 Inactive buspirone 7.5 mg tablet RxNorm: 007087 1 Tablet(s) PO BID 08/09/20 18 2018 Inactive gabapentin 300 mg capsule RxNorm: 246245 1 Capsule(s) PO TID as needed 08/01/20 18 2018 Inactive hydrochlorothiazide 12.5 mg tablet RxNorm: 486770 1 Tablet(s) PO QAM 08/01/20 18 2018 Inactive ranitidine 150 mg tablet RxNorm: 784217 1 Tablet(s) PO BID 08/01/20 18 2018 Inactive Macrobid 100 mg capsule RxNorm: 775332 1 Capsule(s) PO Q12H 06/21/20 18 2017 Inactive Singulair 10 mg tablet RxNorm: 780881 1 Tablet(s) PO daily 06/14/20 18 2018 Inactive Ventolin HFA 90 mcg/actuation aerosol inhaler RxNorm: 5484723 2 Puff(s) INH QID 06/14/20 18 2018 Inactive Singulair 10 mg tablet RxNorm: 904915 1 Tablet(s) PO daily 06/14/20 18 2017 Inactive buspirone 7.5 mg tablet RxNorm: 019969 1 Tablet(s) PO BID 06/14/20 18 2017 Inactive Prozac 10 mg capsule RxNorm: 832320 1 Capsule(s) PO daily 06/14/20 18 2017 Inactive Neilmed Pediatric Sinus Rinse Refill packet RxNorm: 1 Unit Dose NASAL PRN 05/31/20 18 2021 Inactive diclofenac sodium 75 mg tablet,delayed release RxNorm: 786870 1 Tablet(s) PO BID 05/31/20 18 2017 Inactive lisinopril 2.5 mg tablet RxNorm: 810581 1 Tablet(s) PO daily 05/31/20 18 2017 Inactive metoprolol succinate ER 50 mg tablet,extended release 24 hr RxNorm: 814250 1 Tablet(s) PO daily 05/31/20 18 2017 Inactive levothyroxine 50 mcg tablet RxNorm: 117057 1 Tablet(s) PO daily 05/31/20 18 2017 Inactive TRUEplus Lancets 30 gauge RxNorm: 1 Lancets Miscellaneous QAM 05/31/20 18 2017 Inactive 100/box Ventolin HFA 90 mcg/actuation aerosol inhaler RxNorm: 651580 2 Puff(s) INH QID 05/31/20 18 2017 Inactive Aleve 220 mg capsule RxNorm: 3223813 1 Capsule(s) PO BID 05/31/20 18 2018 Inactive ranitidine 150 mg tablet RxNorm: 668033 1 Tablet(s) PO BID 05/31/20 18 2017 Inactive gabapentin 300 mg capsule RxNorm: 431248 1 Capsule(s) PO TID as needed 05/31/20 18 2017 Inactive atorvastatin 20 mg tablet RxNorm: 935382 1 Tablet(s) PO QHS 05/31/20 18 2017 Inactive True Metrix Glucose Test Strip RxNorm: 1 Test Strips [facility] 05/31/20 18 2017 Inactive 50/container Calcium 600-D3 Plus 600 mg calcium-800 unit-50 mg tablet RxNorm: 1 Tablet(s) PO daily take an additonal tablet for itching. 05/31/20 18 2017 Inactive hydrochlorothiazide 12.5 mg tablet RxNorm: 507073 1 Tablet(s) PO QAM 05/31/20 18 2017 Inactive Flintstones Complete (iron) 18 mg iron chewable tablet RxNorm: 1 Tablet(s) PO daily 05/31/20 18 2017 Inactive sertraline 50 mg tablet RxNorm: 821841 1 Tablet(s) PO daily 11/28/19 20 2019 Inactive loperamide 2 mg tablet RxNorm: 876043 oral 09/29/20 19 2018 Inactive d-mannose oral powder RxNorm: PO 18 2021 Inactive True Metrix Glucose Meter RxNorm: miscellaneous 08/17/20 19 2018 Inactive Symbicort 160 mcg-4.5 mcg/actuation HFA aerosol inhaler RxNorm: 5817468 2 Puff(s) INH BID 08/17/202018 Inactive Medication Administered No Medication Administered data Procedures Procedure Codes Date Fall Risk Assessment SNOMED CT: 19129772 4 CPT-4: DFRA 09/19/2019 Functional Assessment CPT-4: DFA 09/19/2019 Functional Assessment ADLs - Patient needs direct assistance, cuing, or supervision, to perform the following safely:/*No assistance, cuing, or supervision needed, IADLs - Patient needs direct assistance, cuing, or supervision, to perform the following safely:/preparing meals, IADLs - Patient needs direct assistance, cuing, or supervision, to perform the following safely:/shopping, IADLs - Patient needs direct assistance, cuing, or supervision, to perform the following safely:/taking medications, IADLs - Patient needs direct assistance, cuing, or supervision, to perform the following safely:/transportation CPT-4: DFAUnknown 09/19/2019 Fall Risk Assessment Two or more falls in the past year?/No, Has there been a fall with injury in the last year?/No, Plan:/Monitor gait and balance PRN, no current action needed SNOMED CT: 225216978 CPT-4: DFRAUnknown 09/19/2019 Urinalysis, dip stick CPT-4: 14070 06/21/2019 Tobacco Assessment/Screening CPT-4: TCA Patient Health Questionnaire CPT-4: DPHQ AHA/REBECCA Classification Assessment CPT-4: DAHA 04/25/2019 Controlled Substance Report CPT-4: CTRSU 04/03 Urinalysis, dip stick CPT-4: 34827 03/28/2019 Urinalysis, dip stick CPT-4: 68124 03/28/2019 [id number] CPT-4: 43211 Unknown Gynecology Referral SNOMED CT: 759736646 CPT-4: R14 Unknown Vital Signs Date Vital 09/19/2019 Blood Pressure 1: 128/82 Code: 8480-6 BMI: 58.8 Code: 33388-8 Heart Rate 1: 98 bpm Height: 4'11 Code: 8302-2 Respiratory Rate: 18 bpm SpO2: 98% Temperature: 37.5 (C) / 99.5 (F) Weight: 291 lbs Code: 85394-0 Reason For Visit Reason For Visit Effective Dates Notes hypertension 09/19/2019 diabetes mellitus 09/19/2019 Encounters Encounter Performer Location Location Address Codes Magdi e HOME VISIT EST PATIENT Diagnosis: Type 2 diabetes mellitus without complications[ICD10 : E11.9] Diagnosis: Hypertensive heart disease with heart failure[ICD10: I11.0] Diagnosis: Chronic kidney disease, unspecified[ICD10: N18.9] Diagnosis: Mixed incontinence[ICD10: N39.46] [facility] [address] [place] [address] CPT-4: 43386 09/19/2019 Plan of Care Planned Activity Notes Codes Status Date Patient Education: Patient Medication Summary Completed 09/19/2019 Patient Education: Hypertension Completed 09/19/2019 Patient Education: Diabetes Complete d 09/19/2019 Appointment: Sudha Hernadez WPtel: [address] [place] [address] [id number] 07/04/2019 Appointment: Sudha Hernadez WPtel: [address] [place] [address] [id number] [facility] 06/21/2019 Appointment: Charlene Oropeza WPtel: [address] [place] [address] [id number] 05/24/2019 Appointment: Mallory Delgado [facility] 04/27/2019 Appointment: Charlene Oropeza WPtel: [address] [facility] [id number] 04/25/2019 Appointment: Rasta Palafox WPtel: [address] [facility] [id number] 03/28/2019 Appointment: Rasta Palafox WPtel: [address] [facility] [id number] 02/14/2019 Appointment: Rasta Palafox WPtel: [address] [facility] [id number] 01/31/2019 Appointment: Rasta Palafox WPtel: [address] [facility] [address] [id number] 12/27/2018 Referral: Pending Gynecology Referral Information Referral Processed Referral: Pending Pulmonolog y Referral Information Referral Processed Referral: Pending Psychiatry Referral Information Referral Initiated Referral: Pending Respirator y Services Referral Information Referral Initiated Referral: Pending Ophthalmology Referral Information Referral Initiated Referral: [facility] WPtel: [address] [facility] [address] Plastic Extrusion Operator placed a call out to the patient to notify her that it has been recommended that she be seen by 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 Patient agreed to be seen, does not have a provider of choice and no transportation issues. Plastic Extrusion Operator faxed referral and clinical notes to [facility] in [place], [place] near the patient's home. Patient to [...] seen and prefers a provider in the [place] or [place] area. Plastic Extrusion Operator placed a call out to everyone listed in the area and the only location that was able to accept the patient's insurance was [address] [id number] and spoke with Maylin. Maylin asked that the patient's referral, face sheet and visit notes be faxed to . Plastic Extrusion Operator faxed over requested documents. Patient appointment confirmation letter generated and mailed to her home address. Patient to call to schedule an appointment. Processed Referral: [facility] WPtel: [address] [facility] [address] [id number] Patient notified that it has been advised that she be seen by Neurology. Patient agreed to be seen and prefers to be seen by a provider in the [place], [place] area. Patient denies any concerns with transportation, and prefers to schedule her own appointment. Plastic Extrusion Operator placed a call out to [facility] and spoke with [...]
--- OUTSIDE RECORDS SUMMARY | 2023-12-07 02:08 | XMS_ITS | CCD ---
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 Maintenance Engineer Name Role Phone Palomo KING, Anna Primary Care Provider Unav ailable Unavailable Chronic Care Management Unavaila ble Summary Purpose DataExchange Insurance Providers Payer name Policy type / Coverage type Covered constitution party ID Effective Begin Date Effective End Date SUKI MAYO [id number] Unknown Unknown Family history Mother Diagnosis Age [...] Unknown Disability 05/31/[address]: 681264953 Has never s moked or chewed tobacco 05/31/[address]: 222317354 Never drinks alco hol 05/31/2018 Has the [...] unspecified ICD-10: J06.9 ICD-9: 465.9 09/04/2019 Active Chronic kidney disease, unspecified ICD- 10: [...] ICD-10: Z12.4 ICD-9: V76.2 04/25/2019 Active 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 ICD-10: Z79.899 ICD-9: [...] ICD-10: R51 ICD-9: 784.0 10/03/2018 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) ICD-10: Z79.1 ICD-9: V58.64 06/13/2018 Active Medications Medication Codes Instructions Start Date Stop Date Status Fill Instructions Sudafed 12 Hour 120 mg tablet,extended release RxNorm: 0198580 1 Tablet(s) Oral every 12 hours as needed 09/11/20 19 2018 Inactive omeprazole 20 mg capsule,delayed release RxNorm: 054790 1 Capsule(s) Oral every day 09/07/20 19 2019 Inactive Sudafed 12 Hour 120 mg tablet,extended release RxNorm: 5402065 1 Tablet(s) Oral every 12 hours as needed 09/04/202018 Inactive pantoprazole 40 mg tablet,delayed release RxNorm: 748646 1 Tablet(s) Oral every day 08/24/202018 Inactive discontinue any other H2Blkr. and PPI Alcohol Prep Pads RxNorm: 979097 1 Patch TOP QAM 08/17/20 19 2019 Inactive albuterol sulfate 2.5 mg/3 mL (0.083 %) solution for nebulization RxNorm: 869308 1 Vial Inhalation every four hours as needed as needed for dyspnea 08/17/20 19 2019 Inactive 60/box. This refill negates all other refills of this medication. Please do not fill early. Please do not auto refill. Symbicort 160 mcg-4.5 mcg/actuation HFA aerosol inhaler RxNorm: 6341738 2 Puff(s) INH BID 08/17/20 19 No Stop Date Active True Metrix Glucose Test Strip RxNorm: 1 Test Strips Miscellaneous QAM 08/09/20 19 2019 Inactive 100/container Ventolin HFA 90 mcg/actuation aerosol inhaler RxNorm: 313573 2 Puff(s) INH QID 08/09/20 19 2019 Inactive Please do not fill early. Please do not auto refill. This refill negates all other refills of this medication atorvastatin 40 mg tablet RxNorm: 738665 1 Tablet(s) Oral every day 07/04/20 19 2019 Inactive hydrochlorothiazide 12.5 mg tablet RxNorm: 177076 1 Tablet(s) PO QAM 06/26/20 19 2019 Inactive levmetamfetamine 50 mg nasal inhaler RxNorm: 1 Unit(s) NASAL Q3-4H Do not use more than every 3 hours or 8 times/24hours 06/26/20 19 2021 Inactive Please do not auto refill. This refill negates all other refills of this medication Singulair 10 mg tablet RxNorm: 496584 1 Tablet(s) PO daily 06/26/20 19 2019 Inactive This refill negates all other refills of this medication cetirizine 10 mg tablet RxNorm: 7840165 1 Tablet(s) PO daily 06/26/20 19 2019 Inactive This refill negates all other refills of this medication. Please do not auto refill levothyroxine 50 mcg tablet RxNorm: 805497 1 Tablet(s) PO daily 06/26/20 19 2019 Inactive This refill negates all other refills of this medication diclofenac sodium 75 mg tablet,delayed release RxNorm: 554337 1 Tablet(s) PO BID 06/26/20 19 2019 Inactive This refill negates all other refills of this medication buspirone 7.5 mg tablet RxNorm: 733512 1 Tablet(s) PO BID 06/26/20 19 2020 Inactive This refill negates all other refills of this medication Calcium 600-D3 Plus (mag-zinc) 600 mg calcium-800 unit-50 mg tablet RxNorm: 1 Tablet(s) PO daily take an additonal tablet for itching. 06/26/20 19 2018 Inactive This refill negates all other refills of this medication Ventolin HFA 90 mcg/actuation aerosol inhaler RxNorm: 324386 2 Puff(s) INH QID 06/26/20 19 2018 Inactive Please do not fill early. Please do not auto refill. This refill negates all other refills of this medication ranitidine 150 mg tablet RxNorm: 665286 1 Tablet(s) PO BID 06/26/20 19 2018 Inactive This refill negates all other refills of this medication albuterol sulfate 2.5 mg/3 mL (0.083 %) solution for nebulization RxNorm: 536227 1 Vial INH QID 06/26/20 19 2018 Inactive 60/box. This refill negates all other refills of this medication. Please do not fill early. Please do not auto refill. lisinopril 2.5 mg tablet RxNorm: 862859 1 Tablet(s) PO daily 06/21/20 19 2019 Inactive gabapentin 300 mg capsule RxNorm: 923488 1 Capsule(s) PO TID 06/21/20 19 2019 Inactive atorvastatin 20 mg tablet RxNorm: 682949 1 Tablet(s) PO QHS 06/07/20 19 2018 Inactive This refill negates all other refills of this medication TRUEplus Lancets 30 gauge RxNorm: 1 Lancets Miscellaneous QAM 05/29/20 19 2018 Inactive 100/box gabapentin 300 mg capsule RxNorm: 938837 1 Capsule(s) PO TID 05/03/20 19 2018 Inactive Flintstones Complete (iron) 18 mg iron chewable tablet RxNorm: 1 Tablet(s) PO daily 04/04/20 19 2021 Inactive This refill negates all other refills of this medication gabapentin 300 mg capsule RxNorm: 315494 1 Capsule(s) PO TID as needed 02/01/20 19 2018 Inactive True Metrix Glucose Test Strip RxNorm: 1 Test Strips Miscellaneous QAM 02/01/20 19 2018 Inactive 100/container Alcohol Prep Pads RxNorm: 923152 1 Patch TOP QAM 02/01/20 19 2018 Inactive TRUEplus Lancets 30 gauge RxNorm: 1 Lancets Miscellaneous QAM 02/01/20 19 2018 Inactive 100/box lisinopril 2.5 mg tablet RxNorm: 510243 1 Tablet(s) PO daily 12/28/19 19 2018 Inactive ranitidine 150 mg tablet RxNorm: 630554 1 Tablet(s) PO BID 10/21/192018 Inactive This refill negates all other refills of this medication albuterol sulfate 2.5 mg/3 mL (0.083 %) solution for nebulization RxNorm: 239884 1 Vial INH QID 10/21/192018 Inactive 60/box. [...] this medication gabapentin 300 mg capsule RxNorm: 460342 1 Capsule(s) PO TID as needed 10/21/19 19 2018 Inactive atorvastatin 20 mg tablet RxNorm: 850723 1 Tablet(s) PO QHS 10/21/19 19 2018 Inactive This refill negates all other refills of this medication trazodone 50 mg tablet RxNorm: 437768 1 Tablet(s) PO QHS 10/21/19 19 2018 Inactive This refill negates all other refills of this medication Ventolin HFA 90 mcg/actuation aerosol inhaler RxNorm: 206286 2 Puff(s) INH QID 01/19/2018 Inactive Please do not fill early. Please do not auto refill. This refill negates all other refills of this medication Calcium 600-D3 Plus 600 mg calcium-800 unit-50 mg tablet RxNorm: 1 Tablet(s) PO daily take an additonal tablet for itching. 10/21/192018 Inactive This refill negates all other refills of this medication Singulair 10 mg tablet RxNorm: 634253 1 Tablet(s) PO daily 10/21/192018 Inactive This refill negates all other refills of this medication buspirone 7.5 mg tablet RxNorm: 245773 1 Tablet(s) PO BID 10/21/192018 Inactive This refill negates all other refills of this medication diclofenac sodium 75 mg tablet,delayed release RxNorm: 654541 1 Tablet(s) PO BID 10/21/192018 Inactive This refill negates all other refills of this medication hydrochlorothiazide 12.5 mg tablet RxNorm: 326889 1 Tablet(s) PO QAM 10/21/192018 Inactive metoprolol succinate ER 50 mg tablet,extended release 24 hr RxNorm: 207426 1 Tablet(s) PO daily 10/21/192018 Inactive This refill negates all other refills of this medication levothyroxine 50 mcg tablet RxNorm: 488267 1 Tablet(s) PO daily 10/21/192018 Inactive This refill negates all other refills of this medication cetirizine 10 mg tablet RxNorm: 1562651 1 Tablet(s) PO daily 10/21/192018 Inactive This refill negates all other refills of this medication. Please do not auto refill Flintstones Complete (iron) 18 mg iron chewable tablet RxNorm: 1 Tablet(s) PO daily 10/21/192018 Inactive This refill negates all other refills of this medication buspirone 7.5 mg tablet RxNorm: 937847 1 Tablet(s) PO BID 10/12/192018 Inactive cetirizine 10 mg tablet RxNorm: 5249466 1 Tablet(s) PO daily 09/28/20 18 2018 Inactive Guaiasorb DM 10 mg-100 mg/5 mL oral liquid RxNorm: 864639 10 Milliliter(s) PO As needed every 4 hr 09/24/20 18 2018 Inactive Vicks Vaporub 4.7 %-1.2 %-2.6 % topical ointment RxNorm: 9518026 1 Application TOP TID 09/24/20 18 2018 Inactive levmetamfetamine 50 mg nasal inhaler RxNorm: 1 Unit(s) NASAL Q3-4H 09/24/20 18 2017 Inactive sertraline 50 mg tablet RxNorm: 156956 1 Tablet(s) PO daily 09/09/20 18 2018 Inactive Please note dose trazodone 50 mg tablet RxNorm: 495913 1 Tablet(s) PO QHS 09/06/20 18 2018 Inactive sertraline 50 mg tablet RxNorm: 540630 1 Tablet(s) PO daily 09/06/20 18 2017 Inactive amoxicillin 500 mg tablet RxNorm: 912828 1 Tablet(s) PO Q12H 08/31/20 18 2017 Inactive albuterol sulfate 2.5 mg/3 mL (0.083 %) solution for nebulization RxNorm: 524943 1 Vial INH QID 08/10/20 18 2018 Inactive 60/box. Please do not fill early. Please do not auto refill. Prozac 10 mg capsule RxNorm: 144206 1 Capsule(s) PO daily 08/09/20 18 2017 Inactive buspirone 7.5 mg tablet RxNorm: 766918 1 Tablet(s) PO BID 08/09/20 18 2018 Inactive gabapentin 300 mg capsule RxNorm: 129664 1 Capsule(s) PO TID as needed 08/01/20 18 2018 Inactive hydrochlorothiazide 12.5 mg tablet RxNorm: 372924 1 Tablet(s) PO QAM 08/01/20 18 2018 Inactive ranitidine 150 mg tablet RxNorm: 390192 1 Tablet(s) PO BID 08/01/20 18 2018 Inactive Macrobid 100 mg capsule RxNorm: 995812 1 Capsule(s) PO Q12H 06/21/20 18 2017 Inactive Singulair 10 mg tablet RxNorm: 314471 1 Tablet(s) PO daily 06/14/20 18 2018 Inactive Ventolin HFA 90 mcg/actuation aerosol inhaler RxNorm: 3139623 2 Puff(s) INH QID 06/14/20 18 2018 Inactive Singulair 10 mg tablet RxNorm: 927909 1 Tablet(s) PO daily 06/14/20 18 2017 Inactive buspirone 7.5 mg tablet RxNorm: 501723 1 Tablet(s) PO BID 06/14/20 18 2017 Inactive Prozac 10 mg capsule RxNorm: 361165 1 Capsule(s) PO daily 06/14/20 18 2017 Inactive Neilmed Pediatric Sinus Rinse Refill packet RxNorm: 1 Unit Dose NASAL PRN 05/31/20 18 2021 Inactive diclofenac sodium 75 mg tablet,delayed release RxNorm: 222299 1 Tablet(s) PO BID 05/31/20 18 2017 Inactive lisinopril 2.5 mg tablet RxNorm: 689576 1 Tablet(s) PO daily 05/31/20 18 2017 Inactive metoprolol succinate ER 50 mg tablet,extended release 24 hr RxNorm: 874494 1 Tablet(s) PO daily 05/31/20 18 2017 Inactive levothyroxine 50 mcg tablet RxNorm: 719256 1 Tablet(s) PO daily 05/31/20 18 2017 Inactive TRUEplus Lancets 30 gauge RxNorm: 1 Lancets Miscellaneous QAM 05/31/20 18 2017 Inactive 100/box Ventolin HFA 90 mcg/actuation aerosol inhaler RxNorm: 371025 2 Puff(s) INH QID 05/31/20 18 2017 Inactive Aleve 220 mg capsule RxNorm: 2002327 1 Capsule(s) PO BID 05/31/20 18 2018 Inactive ranitidine 150 mg tablet RxNorm: 543207 1 Tablet(s) PO BID 05/31/20 18 2017 Inactive gabapentin 300 mg capsule RxNorm: 966541 1 Capsule(s) PO TID as needed 05/31/20 18 2017 Inactive atorvastatin 20 mg tablet RxNorm: 969084 1 Tablet(s) PO QHS 05/31/20 18 2017 Inactive True Metrix Glucose Test Strip RxNorm: 1 Test Strips Miscellaneous QA 05/31/20 18 2017 Inactive 50/container Calcium 600-D3 Plus 600 mg calcium-800 unit-50 mg tablet RxNorm: 1 Tablet(s) PO daily take an additonal tablet for itching. 05/31/20 18 2017 Inactive hydrochlorothiazide 12.5 mg tablet RxNorm: 901900 1 Tablet(s) PO QAM 05/31/20 18 2017 Inactive Flintstones Complete (iron) 18 mg iron chewable tablet RxNorm: 1 Tablet(s) PO daily 05/31/20 18 2017 Inactive sertraline 50 mg tablet RxNorm: 190155 1 Tablet(s) PO daily 11/28/19 20 2019 Inactive loperamide 2 mg tablet RxNorm: 452865 oral 09/29/20 19 2018 Inactive d-mannose oral powder RxNorm: PO 18 2021 Inactive True Metrix Glucose Meter RxNorm: miscellaneous 08/17/20 19 2018 Inactive Symbicort 160 mcg-4.5 mcg/actuation HFA aerosol inhaler RxNorm: 8808364 2 Puff(s) INH BID 08/17/20 19 2018 Inactive Medication Administered No Medication Administered data Procedures Procedure Codes Date Urinalysis, dip stick CPT-4: 37514 06/21/2019 Tobacco Assessment/Screening CPT-4: TCA Patient Health Questionnaire CPT-4: DPHQ AHA/ERBECCA Classification Assessment CPT-4: DAHA 04/25/2019 Controlled Substance Report CPT-4: CTRSU 04/03 Urinalysis, dip stick CPT-4: 34853 03/28/2019 Urinalysis, dip stick CPT-4: 75171 03/28/2019 [id number] CPT-4: 04907 Unknown Gynecology Referral SNOMED CT: 783819725 CPT-4: R14 Unknown Reason For Visit No Reason For Visit data Plan of Care Planned Activity Notes Codes Status Date Referral: Pending Gynecology Referral Information Referral Processed Referral: Pending Pulmonolog y Referral Information Referral Processed Referral: Pending Psychiatry Referral Information Referral Initiated Referral: Pending Respirator y Services Referral Information Referral Initiated Referral: Pending Ophthalmol ogy Referral Information Referral Initiated Referral: [facility] WPtel: [address] [place] [address] [address] Philosophy Lecturer placed a call out to the patient to notify her that it has been recommended that she be seen by 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 Patient agreed to be seen, does not have a provider of choice and no transportation issues. Philosophy Lecturer faxed referral and clinical notes to [facility] in [place], [place] near the patient's home. Patient to [...] seen and prefers a provider in the [place] or [facility]. Philosophy Lecturer placed a call out to everyone listed in the area and the only location that was able to accept the patient's insurance was [facility] [place] [address] and spoke with Maylin. Maylin asked that the patient's referral, face sheet and visit notes be faxed to . Philosophy Lecturer faxed over requested documents. Patient appointment confirmation letter generated and mailed to her home address. Patient to call to schedule an appointment. Processed Referral: [facility] WPtel: [address] [place] [address] [place], [place] [id number] Patient notified that it has been advised that she be seen by Neurology. Patient agreed to be seen and prefers to be seen by a provider in the [place], [place] area. Patient denies any concerns with transportation, and prefers to schedule her own appointment. Philosophy Lecturer placed a call out to [facility] and spoke with Neeraj P: who [...]
--- OUTSIDE RECORDS SUMMARY | 2023-12-07 02:08 | XMS_ITS | CCD ---
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 Full Stack Software Engineer Name Role Phone Palomo KING, Anna Primary Care Provider Unav ailable Unavailable Chronic Care Management Unavaila ble Summary Purpose DataExchange Insurance Providers Payer name Policy type / Coverage type Covered alliance party ID Effective Begin Date Effective End Date [employer] [facility] [id number] Unknown Unknown Family history Mother Diagnosis Age [...] Unknown Disability 05/31/[address]: 060178042 Has never s moked or chewed tobacco 05/31/[address]: 683640259 Never drinks alco hol 05/31/2018 Has the [...] ICD-10: Z12.4 ICD-9: V76.2 04/25/2019 Active 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 ICD-10: Z79.899 ICD-9: [...] Headache ICD-10: R51 ICD-9: 784.0 10/03/2018 Active 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 anti-inflammatories (NSAID) ICD-10: Z79.1 ICD-9: V58.64 06/13/2018 Active Medications Medication Codes Instructions Start Date Stop Date Status Fill Instructions Calcium 600-D3 Plus (mag-zinc) 600 mg calcium-800 [...] 2019 Inactive hydrochlorothiazide 25 mg tablet RxNorm: 302591 1 Tablet(s) Oral every day 09/19/20 19 2019 Inactive Sudafed 12 Hour 120 mg tablet,extended release RxNorm: 2376444 1 Tablet(s) Oral every 12 hours as needed 09/11/20 19 2018 Inactive omeprazole 20 mg capsule,delayed release RxNorm: 537301 1 Capsule(s) Oral every day 09/07/20 19 2019 Inactive Sudafed 12 Hour 120 mg tablet,extended release RxNorm: 5772684 1 Tablet(s) Oral every 12 hours as needed 09/04/20 19 2018 Inactive pantoprazole 40 mg tablet,delayed release RxNorm: 262121 1 Tablet(s) Oral every day 08/24/20 19 2018 Inactive discontinue any other H2Blkr. and PPI Alcohol Prep Pads RxNorm: 121727 1 Patch TOP QAM 08/17/20 19 2019 Inactive albuterol sulfate 2.5 mg/3 mL (0.083 %) solution for nebulization RxNorm: 939675 1 Vial Inhalation every four hours as needed as needed for dyspnea 08/17/202019 Inactive 60/box. This refill negates all other refills of this medication. Please do not fill early. Please do not auto refill. Symbicort 160 mcg-4.5 mcg/actuation HFA aerosol inhaler RxNorm: 3839798 2 Puff(s) INH BID 08/17/20 No Stop Date Active True Metrix Glucose Test Strip RxNorm: 1 Test Strips Miscellaneous QAM 08/09/20 19 2019 Inactive 100/container Ventolin HFA 90 mcg/actuation aerosol inhaler RxNorm: 701200 2 Puff(s) INH QID 08/09/20 19 2019 Inactive Please do not fill early. Please do not auto refill. This refill negates all other refills of this medication atorvastatin 40 mg tablet RxNorm: 531676 1 Tablet(s) Oral every day 07/04/20 19 2019 Inactive hydrochlorothiazide 12.5 mg tablet RxNorm: 338275 1 Tablet(s) PO QAM 06/26/20 19 2019 Inactive levmetamfetamine 50 mg nasal inhaler RxNorm: 1 Unit(s) NASAL Q3-4H Do not use more than every 3 hours or 8 times/24hours 06/26/20 19 2021 Inactive Please do not auto refill. This refill negates all other refills of this medication Singulair 10 mg tablet RxNorm: 979642 1 Tablet(s) PO daily 06/26/20 19 2019 Inactive This refill negates all other refills of this medication cetirizine 10 mg tablet RxNorm: 6760348 1 Tablet(s) PO daily 06/26/20 19 2019 Inactive This refill negates all other refills of this medication. Please do not auto refill levothyroxine 50 mcg tablet RxNorm: 751075 1 Tablet(s) PO daily 06/26/20 19 2019 Inactive This refill negates all other refills of this medication diclofenac sodium 75 mg tablet,delayed release RxNorm: 167084 1 Tablet(s) PO BID 06/26/20 19 2019 Inactive This refill negates all other refills of this medication buspirone 7.5 mg tablet RxNorm: 470571 1 Tablet(s) PO BID 06/26/202020 Inactive This refill negates all other refills of this medication Ventolin HFA 90 mcg/actuation aerosol inhaler RxNorm: 071951 2 Puff(s) INH QID 06/26/20 19 2018 Inactive Please do not fill early. Please do not auto refill. This refill negates all other refills of this medication ranitidine 150 mg tablet RxNorm: 132696 1 Tablet(s) PO BID 06/26/20 19 2018 Inactive This refill negates all other refills of this medication Calcium 600-D3 Plus (mag-zinc) 600 mg calcium-800 unit-50 mg tablet RxNorm: 1 Tablet(s) PO daily take an additonal tablet for itching. 06/26/20 19 2018 Inactive This refill negates all other refills of this medication albuterol sulfate 2.5 mg/3 mL (0.083 %) solution for nebulization RxNorm: 231757 1 Vial INH QID 06/26/20 19 2018 Inactive 60/box. This refill negates all other refills of this medication. Please do not fill early. Please do not auto refill. lisinopril 2.5 mg tablet RxNorm: 596666 1 Tablet(s) PO daily 06/21/20 19 2019 Inactive gabapentin 300 mg capsule RxNorm: 090457 1 Capsule(s) PO TID 06/21/20 2019 Inactive atorvastatin 20 mg tablet RxNorm: 433744 1 Tablet(s) PO QHS 06/07/20 19 2018 Inactive This refill negates all other refills of this medication TRUEplus Lancets 30 gauge RxNorm: 1 Lancets Miscellaneous QAM 05/29/20 19 2018 Inactive 100/box gabapentin 300 mg capsule RxNorm: 071964 1 Capsule(s) PO TID 05/03/20 19 2018 Inactive Flintstones Complete (iron) 18 mg iron chewable tablet RxNorm: 1 Tablet(s) PO daily 04/04/202021 Inactive This refill negates all other refills of this medication gabapentin 300 mg capsule RxNorm: 628891 1 Capsule(s) PO TID as needed 02/01/202018 Inactive True Metrix Glucose Test Strip RxNorm: 1 Test Strips Miscellaneous QAM 02/01/20 19 2018 Inactive 100/container Alcohol Prep Pads RxNorm: 448113 1 Patch TOP QAM 02/01/202018 Inactive TRUEplus Lancets 30 gauge RxNorm: 1 Lancets Miscellaneous QAM 02/01/20 19 2018 Inactive 100/box lisinopril 2.5 mg tablet RxNorm: 406702 1 Tablet(s) PO daily 12/28/19 19 2018 Inactive ranitidine 150 mg tablet RxNorm: 548000 1 Tablet(s) PO BID 10/21/192018 Inactive This refill negates all other refills of this medication albuterol sulfate 2.5 mg/3 mL (0.083 %) solution for nebulization RxNorm: 401016 1 Vial INH QID 10/21/192018 Inactive 60/box. [...] this medication gabapentin 300 mg capsule RxNorm: 892440 1 Capsule(s) PO TID as needed 10/21/19 19 2018 Inactive atorvastatin 20 mg tablet RxNorm: 485319 1 Tablet(s) PO QHS 10/21/19 19 2018 Inactive This refill negates all other refills of this medication trazodone 50 mg tablet RxNorm: 386950 1 Tablet(s) PO QHS 10/21/19 19 2018 Inactive This refill negates all other refills of this medication Ventolin HFA 90 mcg/actuation aerosol inhaler RxNorm: 850103 2 Puff(s) INH QID 10/21/192018 Inactive Please do not fill early. Please do not auto refill. This refill negates all other refills of this medication Calcium 600-D3 Plus 600 mg calcium-800 unit-50 mg tablet RxNorm: 1 Tablet(s) PO daily take an additonal tablet for itching. 10/21/192018 Inactive This refill negates all other refills of this medication Singulair 10 mg tablet RxNorm: 385919 1 Tablet(s) PO daily 10/21/192018 Inactive This refill negates all other refills of this medication buspirone 7.5 mg tablet RxNorm: 875487 1 Tablet(s) PO BID 10/21/192018 Inactive This refill negates all other refills of this medication diclofenac sodium 75 mg tablet,delayed release RxNorm: 018250 1 Tablet(s) PO BID 10/21/192018 Inactive This refill negates all other refills of this medication hydrochlorothiazide 12.5 mg tablet RxNorm: 670784 1 Tablet(s) PO QAM 10/21/192018 Inactive metoprolol succinate ER 50 mg tablet,extended release 24 hr RxNorm: 005758 1 Tablet(s) PO daily 10/21/19 19 2018 Inactive This refill negates all other refills of this medication levothyroxine 50 mcg tablet RxNorm: 447228 1 Tablet(s) PO daily 10/21/19 2018 Inactive This refill negates all other refills of this medication cetirizine 10 mg tablet RxNorm: 7781816 1 Tablet(s) PO daily 10/21/19 19 2018 Inactive This refill negates all other refills of this medication. Please do not auto refill Flintstones Complete (iron) 18 mg iron chewable tablet RxNorm: 1 Tablet(s) PO daily 10/21/19 19 2018 Inactive This refill negates all other refills of this medication buspirone 7.5 mg tablet RxNorm: 359712 1 Tablet(s) PO BID 10/12/19 19 2018 Inactive cetirizine 10 mg tablet RxNorm: 4531445 1 Tablet(s) PO daily 09/28/20 18 2018 Inactive Guaiasorb DM 10 mg-100 mg/5 mL oral liquid RxNorm: 694475 10 Milliliter(s) PO As needed every 4 hr 09/24/20 18 2018 Inactive Vicks Vaporub 4.7 %-1.2 %-2.6 % topical ointment RxNorm: 8726579 1 Application TOP TID 09/24/20 18 2018 Inactive levmetamfetamine 50 mg nasal inhaler RxNorm: 1 Unit(s) NASAL Q3-4H 09/24/20 18 2017 Inactive sertraline 50 mg tablet RxNorm: 464974 1 Tablet(s) PO daily 09/09/20 18 2018 Inactive Please note dose trazodone 50 mg tablet RxNorm: 597394 1 Tablet(s) PO QHS 09/06/20 18 2018 Inactive sertraline 50 mg tablet RxNorm: 610620 1 Tablet(s) PO daily 09/06/20 18 2017 Inactive amoxicillin 500 mg tablet RxNorm: 393214 1 Tablet(s) PO Q12H 08/31/20 18 2017 Inactive albuterol sulfate 2.5 mg/3 mL (0.083 %) solution for nebulization RxNorm: 874872 1 Vial INH QID 08/10/20 18 2018 Inactive 60/box. Please do not fill early. Please do not auto refill. Prozac 10 mg capsule RxNorm: 903328 1 Capsule(s) PO daily 08/09/20 18 2017 Inactive buspirone 7.5 mg tablet RxNorm: 307186 1 Tablet(s) PO BID 08/09/20 18 2018 Inactive gabapentin 300 mg capsule RxNorm: 084278 1 Capsule(s) PO TID as needed 08/01/20 18 2018 Inactive hydrochlorothiazide 12.5 mg tablet RxNorm: 800260 1 Tablet(s) PO QAM 08/01/20 18 2018 Inactive ranitidine 150 mg tablet RxNorm: 908198 1 Tablet(s) PO BID 08/01/20 18 2018 Inactive Macrobid 100 mg capsule RxNorm: 062799 1 Capsule(s) PO Q12H 06/21/20 18 2017 Inactive Singulair 10 mg tablet RxNorm: 956408 1 Tablet(s) PO daily 06/14/20 18 2018 Inactive Ventolin HFA 90 mcg/actuation aerosol inhaler RxNorm: 9520419 2 Puff(s) INH QID 06/14/20 18 2018 Inactive Singulair 10 mg tablet RxNorm: 039105 1 Tablet(s) PO daily 06/14/20 18 2017 Inactive buspirone 7.5 mg tablet RxNorm: 358004 1 Tablet(s) PO BID 06/14/20 18 2017 Inactive Prozac 10 mg capsule RxNorm: 198743 1 Capsule(s) PO daily 06/14/20 18 2017 Inactive Neilmed Pediatric Sinus Rinse Refill packet RxNorm: 1 Unit Dose NASAL PRN 05/31/20 18 2021 Inactive diclofenac sodium 75 mg tablet,delayed release RxNorm: 840973 1 Tablet(s) PO BID 05/31/20 18 2017 Inactive lisinopril 2.5 mg tablet RxNorm: 556212 1 Tablet(s) PO daily 05/31/20 18 2017 Inactive metoprolol succinate ER 50 mg tablet,extended release 24 hr RxNorm: 878953 1 Tablet(s) PO daily 05/31/20 18 2017 Inactive levothyroxine 50 mcg tablet RxNorm: 386873 1 Tablet(s) PO daily 05/31/20 18 2017 Inactive TRUEplus Lancets 30 gauge RxNorm: 1 Lancets Miscellaneous QAM 05/31/20 18 2017 Inactive 100/box Ventolin HFA 90 mcg/actuation aerosol inhaler RxNorm: 096858 2 Puff(s) INH QID 05/31/20 18 2017 Inactive Aleve 220 mg capsule RxNorm: 0682119 1 Capsule(s) PO BID 05/31/20 18 2018 Inactive ranitidine 150 mg tablet RxNorm: 597886 1 Tablet(s) PO BID 05/31/20 18 2017 Inactive gabapentin 300 mg capsule RxNorm: 501578 1 Capsule(s) PO TID as needed 05/31/20 18 2017 Inactive atorvastatin 20 mg tablet RxNorm: 812580 1 Tablet(s) PO QHS 05/31/20 18 2017 Inactive True Metrix Glucose Test Strip RxNorm: 1 Test Strips Miscellaneous QAM 05/31/20 18 2017 Inactive 50/container Calcium 600-D3 Plus 600 mg calcium-800 unit-50 mg tablet RxNorm: 1 Tablet(s) PO daily take an additonal tablet for itching. 05/31/20 18 2017 Inactive hydrochlorothiazide 12.5 mg tablet RxNorm: 536120 1 Tablet(s) PO QAM 05/31/20 18 2017 Inactive Flintstones Complete (iron) 18 mg iron chewable tablet RxNorm: 1 Tablet(s) PO daily 05/31/20 18 2017 Inactive sertraline 50 mg tablet RxNorm: 746604 1 Tablet(s) PO daily 11/28/19 20 2019 Inactive loperamide 2 mg tablet RxNorm: 689802 oral 09/29/20 19 2018 Inactive d-mannose oral powder RxNorm: PO 18 2021 Inactive True Metrix Glucose Meter RxNorm: miscellaneous 08/17/202018 Inactive Symbicort 160 mcg-4.5 mcg/actuation HFA aerosol inhaler RxNorm: 2662650 2 Puff(s) INH BID 08/17/202018 Inactive Medication Administered No Medication Administered data Procedures Procedure Codes Date Fall Risk Assessment SNOMED CT: 30066353 4 CPT-4: DFRA 09/19/2019 Functional Assessment CPT-4: DFA 09/19/2019 Urinalysis, dip stick CPT-4: 88106 06/21/2019 Tobacco Assessment/Screening CPT-4: TCA Patient Health Questionnaire CPT-4: DPHQ AHA/REBECCA Classification Assessment CPT-4: DAHA 04/25/2019 Controlled Substance Report CPT-4: CTRSU 04/03 Urinalysis, dip stick CPT-4: 47432 03/28/2019 Urinalysis, dip stick CPT-4: 39736 03/28/2019 [id number] CPT-4: 83507 Unknown Gynecology Referral SNOMED CT: 331179979 CPT-4: R14 Unknown Reason For Visit No Reason For Visit data Plan of Care Planned Activity Notes Codes Status Date Referral: Pending Gynecology Referral Information Referral Processed Referral: Pending Pulmonolog y Referral Information Referral Processed Referral: Pending Psychiatry Referral Information Referral Initiated Referral: Pending Respirator y Services Referral Information Referral Initiated Referral: Pending Ophthalmol ogy Referral Information Referral Initiated Referral: [facility] WPtel: [address] [place] [address] [address] [place] [address] [place] Warehouse Distribution Manager placed a call out to the patient to notify her that it has been recommended that she be seen by 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 Patient agreed to be seen, does not have a provider of choice and no transportation issues. Warehouse Distribution Manager faxed referral and clinical notes to [facility] in [place], [place] near the patient's home. Patient to [...] seen and prefers a provider in the [place] or [place] area. Warehouse Distribution Manager placed a call out to everyone listed in the area and the only location that was able to accept the patient's insurance was [facility] [address] [place] [address] and spoke with Maylin. Maylin asked that the patient's referral, face sheet and visit notes be faxed to . Warehouse Distribution Manager faxed over requested documents. Patient appointment confirmation letter generated and mailed to her home address. Patient to call to schedule an appointment. Processed Referral: [facility] WPtel: [address] [place] [address] Patient notified that it has been advised that she be seen by Neurology. Patient agreed to be seen and prefers to be seen by a provider in the [place], [place] area. Patient denies any concerns with transportation, and prefers to schedule her own appointment. Warehouse Distribution Manager placed a call out to [facility] and spoke with Neeraj P: who confirmed that their office is able to accept new patients and the patient's insurance. After confirming the providers fax number, senior mortgage underwriter faxed over the patient's referral, [...]
--- OUTSIDE RECORDS SUMMARY | 2023-12-07 02:08 | XMS_ITS | CCD ---
Author Name Leena Culver NP Address [address] [place] [address] [place] [address] Phone Organization [facility] Phone Care Team Providers Care Plane Tableman Name Role Phone Anna Culver NP Primary Care Provider Unav ailable Unavailable Chronic Care Management Unavaila ble Summary Purpose DataExchange Insurance Providers Payer name Policy type / Coverage type Covered libertarian ID Effective Begin Date Effective End Date SUKI MAYO [id number] Unknown Unknown Family history Mother Diagnosis Age [...] Unknown Disability 05/31/[address]: 540970109 Has never s moked or chewed tobacco 05/31/[address]: 009801072 Never drinks alco hol 05/31/2018 Has the [...] ICD-10: Z12.4 ICD-9: V76.2 04/25/2019 Active Other detention (current) dr ug [...] Headache ICD-10: R51 ICD-9: 784.0 10/03/2018 Active custodial (current) use of non-steroidal anti-inflammatories (NSAID) ICD-10: Z79.1 ICD-9: V58.64 06/13/2018 Active Medications Medication Codes Instructions Start Date Stop Date Status Fill Instructions loperamide 2 mg tablet RxNorm: 752045 1 Tablet(s) Oral as needed take one [...] 2019 Inactive hydrochlorothiazide 25 mg tablet RxNorm: 468669 1 Tablet(s) Oral every day 09/19/20 19 2019 Inactive Sudafed 12 Hour 120 mg tablet,extended release RxNorm: 7145969 1 Tablet(s) Oral every 12 hours as needed 09/11/20 19 2018 Inactive omeprazole 20 mg capsule,delayed release RxNorm: 161675 1 Capsule(s) Oral every day 09/07/20 19 2019 Inactive Sudafed 12 Hour 120 mg tablet,extended release RxNorm: 9274951 1 Tablet(s) Oral every 12 hours as needed 09/04/20 19 2018 Inactive pantoprazole 40 mg tablet,delayed release RxNorm: 580705 1 Tablet(s) Oral every day 08/24/20 19 2018 Inactive discontinue any other H2Blkr. and PPI Alcohol Prep Pads RxNorm: 275544 1 Patch TOP QAM 08/17/20 19 2019 Inactive albuterol sulfate 2.5 mg/3 mL (0.083 %) solution for nebulization RxNorm: 354104 1 Vial Inhalation every four hours as needed as needed for dyspnea 08/17/20 19 2019 Inactive 60/box. This refill negates all other refills of this medication. Please do not fill early. Please do not auto refill. Symbicort 160 mcg-4.5 mcg/actuation HFA aerosol inhaler RxNorm: 3852810 2 Puff(s) INH BID 08/17/20 19 No Stop Date Active True Metrix Glucose Test Strip RxNorm: 1 Test Strips Miscellaneous QAM 08/09/20 19 2019 Inactive 100/container Ventolin HFA 90 mcg/actuation aerosol inhaler RxNorm: 395228 2 Puff(s) INH QID 08/09/20 19 2019 Inactive Please do not fill early. Please do not auto refill. This refill negates all other refills of this medication atorvastatin 40 mg tablet RxNorm: 173377 1 Tablet(s) Oral every day 07/04/20 19 2019 Inactive hydrochlorothiazide 12.5 mg tablet RxNorm: 157691 1 Tablet(s) PO QAM 06/26/20 19 2019 Inactive levmetamfetamine 50 mg nasal inhaler RxNorm: 1 Unit(s) NASAL Q3-4H Do not use more than every 3 hours or 8 times/24hours 06/26/20 19 2021 Inactive Please do not auto refill. This refill negates all other refills of this medication Singulair 10 mg tablet RxNorm: 722186 1 Tablet(s) PO daily 06/26/20 19 2019 Inactive This refill negates all other refills of this medication cetirizine 10 mg tablet RxNorm: 8883595 1 Tablet(s) PO daily 06/26/20 19 2019 Inactive This refill negates all other refills of this medication. Please do not auto refill levothyroxine 50 mcg tablet RxNorm: 625001 1 Tablet(s) PO daily 06/26/20 19 2019 Inactive This refill negates all other refills of this medication diclofenac sodium 75 mg tablet,delayed release RxNorm: 384345 1 Tablet(s) PO BID 06/26/20 19 2019 Inactive This refill negates all other refills of this medication buspirone 7.5 mg tablet RxNorm: 771205 1 Tablet(s) PO BID 06/26/20 19 2020 Inactive This refill negates all other refills of this medication Ventolin HFA 90 mcg/actuation aerosol inhaler RxNorm: 520064 2 Puff(s) INH QID 06/26/20 19 2018 Inactive Please do not fill early. Please do not auto refill. This refill negates all other refills of this medication ranitidine 150 mg tablet RxNorm: 715266 1 Tablet(s) PO BID 06/26/20 19 2018 Inactive This refill negates all other refills of this medication Calcium 600-D3 Plus (mag-zinc) 600 mg calcium-800 unit-50 mg tablet RxNorm: 1 Tablet(s) PO daily take an additonal tablet for itching. 06/26/20 19 2018 Inactive This refill negates all other refills of this medication albuterol sulfate 2.5 mg/3 mL (0.083 %) solution for nebulization RxNorm: 059728 1 Vial INH QID 06/26/20 19 2018 Inactive 60/box. This refill negates all other refills of this medication. Please do not fill early. Please do not auto refill. lisinopril 2.5 mg tablet RxNorm: 757137 1 Tablet(s) PO daily 06/21/20 19 2019 Inactive gabapentin 300 mg capsule RxNorm: 068227 1 Capsule(s) PO TID 06/21/20 19 2019 Inactive atorvastatin 20 mg tablet RxNorm: 191396 1 Tablet(s) PO QHS 06/07/20 19 2018 Inactive This refill negates all other refills of this medication TRUEplus Lancets 30 gauge RxNorm: 1 Lancets Miscellaneous QAM 05/29/20 19 2018 Inactive 100/box gabapentin 300 mg capsule RxNorm: 597621 1 Capsule(s) PO TID 05/03/20 19 2018 Inactive Flintstones Complete (iron) 18 mg iron chewable tablet RxNorm: 1 Tablet(s) PO daily 04/04/20 19 2021 Inactive This refill negates all other refills of this medication gabapentin 300 mg capsule RxNorm: 332038 1 Capsule(s) PO TID as needed 02/01/20 19 2018 Inactive True Metrix Glucose Test Strip RxNorm: 1 Test Strips Miscellaneous QA 02/01/20 19 2018 Inactive 100/container Alcohol Prep Pads RxNorm: 350058 1 Patch TOP QA 02/01/20 19 2018 Inactive TRUEplus Lancets 30 gauge RxNorm: 1 Lancets Miscellaneous QAM 02/01/20 19 2018 Inactive 100/box lisinopril 2.5 mg tablet RxNorm: 278170 1 Tablet(s) PO daily 12/28/19 19 2018 Inactive ranitidine 150 mg tablet RxNorm: 841982 1 Tablet(s) PO BID 10/21/19 19 2018 Inactive This refill negates all other refills of this medication albuterol sulfate 2.5 mg/3 mL (0.083 %) solution for nebulization RxNorm: 005508 1 Vial INH QID 10/21/19 19 2018 [...] this medication gabapentin 300 mg capsule RxNorm: 849850 1 Capsule(s) PO TID as needed 10/21/19 19 2018 Inactive atorvastatin 20 mg tablet RxNorm: 980573 1 Tablet(s) PO QHS 10/21/19 19 2018 Inactive This refill negates all other refills of this medication trazodone 50 mg tablet RxNorm: 363225 1 Tablet(s) PO QHS 10/21/192018 Inactive This refill negates all other refills of this medication Ventolin HFA 90 mcg/actuation aerosol inhaler RxNorm: 680975 2 Puff(s) INH QID 10/21/19 19 2018 Inactive Please do not fill early. Please do not auto refill. This refill negates all other refills of this medication Calcium 600-D3 Plus 600 mg calcium-800 unit-50 mg tablet RxNorm: 1 Tablet(s) PO daily take an additonal tablet for itching. 10/21/192018 Inactive This refill negates all other refills of this medication Singulair 10 mg tablet RxNorm: 475557 1 Tablet(s) PO daily 10/21/192018 Inactive This refill negates all other refills of this medication buspirone 7.5 mg tablet RxNorm: 553717 1 Tablet(s) PO BID 10/21/192018 Inactive This refill negates all other refills of this medication diclofenac sodium 75 mg tablet,delayed release RxNorm: 785755 1 Tablet(s) PO BID 10/21/19 19 2018 Inactive This refill negates all other refills of this medication hydrochlorothiazide 12.5 mg tablet RxNorm: 528821 1 Tablet(s) PO QAM 10/21/19 19 2018 Inactive metoprolol succinate ER 50 mg tablet,extended release 24 hr RxNorm: 662488 1 Tablet(s) PO daily 10/21/19 19 2018 Inactive This refill negates all other refills of this medication levothyroxine 50 mcg tablet RxNorm: 681708 1 Tablet(s) PO daily 10/21/19 19 2018 Inactive This refill negates all other refills of this medication cetirizine 10 mg tablet RxNorm: 1557882 1 Tablet(s) PO daily 10/21/19 19 2018 Inactive This refill negates all other refills of this medication. Please do not auto refill Flintstones Complete (iron) 18 mg iron chewable tablet RxNorm: 1 Tablet(s) PO daily 10/21/19 19 2018 Inactive This refill negates all other refills of this medication buspirone 7.5 mg tablet RxNorm: 798602 1 Tablet(s) PO BID 10/12/19 19 2018 Inactive cetirizine 10 mg tablet RxNorm: 6139768 1 Tablet(s) PO daily 09/28/20 18 2018 Inactive Guaiasorb DM 10 mg-100 mg/5 mL oral liquid RxNorm: 754138 10 Milliliter(s) PO As needed every 4 hr 09/24/20 18 2018 Inactive Vicks Vaporub 4.7 %-1.2 %-2.6 % topical ointment RxNorm: 3220692 1 Application TOP TID 09/24/20 18 2018 Inactive levmetamfetamine 50 mg nasal inhaler RxNorm: 1 Unit(s) NASAL Q3-4H 09/24/20 18 2017 Inactive sertraline 50 mg tablet RxNorm: 555149 1 Tablet(s) PO daily 09/09/20 18 2018 Inactive Please note dose trazodone 50 mg tablet RxNorm: 571247 1 Tablet(s) PO QHS 09/06/20 18 2018 Inactive sertraline 50 mg tablet RxNorm: 087790 1 Tablet(s) PO daily 09/06/20 18 2017 Inactive amoxicillin 500 mg tablet RxNorm: 409049 1 Tablet(s) PO Q12H 08/31/20 18 2017 Inactive albuterol sulfate 2.5 mg/3 mL (0.083 %) solution for nebulization RxNorm: 682158 1 Vial INH QID 08/10/20 18 2018 Inactive 60/box. Please do not fill early. Please do not auto refill. Prozac 10 mg capsule RxNorm: 229733 1 Capsule(s) PO daily 08/09/20 18 2017 Inactive buspirone 7.5 mg tablet RxNorm: 432835 1 Tablet(s) PO BID 08/09/20 18 2018 Inactive gabapentin 300 mg capsule RxNorm: 023956 1 Capsule(s) PO TID as needed 08/01/20 18 2018 Inactive hydrochlorothiazide 12.5 mg tablet RxNorm: 763030 1 Tablet(s) PO QAM 08/01/20 18 2018 Inactive ranitidine 150 mg tablet RxNorm: 843096 1 Tablet(s) PO BID 08/01/20 18 2018 Inactive Macrobid 100 mg capsule RxNorm: 123156 1 Capsule(s) PO Q12H 06/21/20 18 2017 Inactive Singulair 10 mg tablet RxNorm: 215684 1 Tablet(s) PO daily 06/14/20 18 2018 Inactive Ventolin HFA 90 mcg/actuation aerosol inhaler RxNorm: 4523917 2 Puff(s) INH QID 06/14/20 18 2018 Inactive Singulair 10 mg tablet RxNorm: 169471 1 Tablet(s) PO daily 06/14/20 18 2017 Inactive buspirone 7.5 mg tablet RxNorm: 138268 1 Tablet(s) PO BID 06/14/20 18 2017 Inactive Prozac 10 mg capsule RxNorm: 361314 1 Capsule(s) PO daily 06/14/20 18 2017 Inactive Neilmed Pediatric Sinus Rinse Refill packet RxNorm: 1 Unit Dose NASAL PRN 05/31/20 18 2021 Inactive diclofenac sodium 75 mg tablet,delayed release RxNorm: 480404 1 Tablet(s) PO BID 05/31/20 18 2017 Inactive lisinopril 2.5 mg tablet RxNorm: 246427 1 Tablet(s) PO daily 05/31/20 18 2017 Inactive metoprolol succinate ER 50 mg tablet,extended release 24 hr RxNorm: 066900 1 Tablet(s) PO daily 05/31/20 18 2017 Inactive levothyroxine 50 mcg tablet RxNorm: 454068 1 Tablet(s) PO daily 05/31/20 18 2017 Inactive TRUEplus Lancets 30 gauge RxNorm: 1 Lancets Miscellaneous QAM 05/31/20 18 2017 Inactive 100/box Ventolin HFA 90 mcg/actuation aerosol inhaler RxNorm: 610695 2 Puff(s) INH QID 05/31/20 18 2017 Inactive Aleve 220 mg capsule RxNorm: 0430076 1 Capsule(s) PO BID 05/31/20 18 2018 Inactive ranitidine 150 mg tablet RxNorm: 429893 1 Tablet(s) PO BID 05/31/20 18 2017 Inactive gabapentin 300 mg capsule RxNorm: 787208 1 Capsule(s) PO TID as needed 05/31/20 18 2017 Inactive atorvastatin 20 mg tablet RxNorm: 455488 1 Tablet(s) PO QHS 05/31/20 18 2017 Inactive True Metrix Glucose Test Strip RxNorm: 1 Test Strips Miscellaneous QAM 05/31/20 18 2017 Inactive 50/container Calcium 600-D3 Plus 600 mg calcium-800 unit-50 mg tablet RxNorm: 1 Tablet(s) PO daily take an additonal tablet for itching. 05/31/20 18 2017 Inactive hydrochlorothiazide 12.5 mg tablet RxNorm: 288626 1 Tablet(s) PO QAM 05/31/20 18 2017 Inactive Flintstones Complete (iron) 18 mg iron chewable tablet RxNorm: 1 Tablet(s) PO daily 05/31/20 18 2017 Inactive sertraline 50 mg tablet RxNorm: 026461 1 Tablet(s) PO daily 11/28/19 20 2019 Inactive d-mannose oral powder RxNorm: PO 18 2021 Inactive True Metrix Glucose Meter RxNorm: miscellaneous 08/17/202018 Inactive loperamide 2 mg tablet RxNorm: 127316 oral 09/29/202018 Inactive Symbicort 160 mcg-4.5 mcg/actuation HFA aerosol inhaler RxNorm: 5504544 2 Puff(s) INH BID 08/17/202018 Inactive Medication Administered No Medication Administered data Procedures Procedure Codes Date Fall Risk Assessment SNOMED CT: 47540243 4 CPT-4: DFRA 09/19/2019 Functional Assessment CPT-4: DFA 09/19/2019 Urinalysis, dip stick CPT-4: 99373 06/21/2019 Tobacco Assessment/Screening CPT-4: TCA Patient Health Questionnaire CPT-4: DPHQ AHA/REBECCA Classification Assessment CPT-4: DAHA 04/25/2019 Controlled Substance Report CPT-4: CTRSU 04/03 Urinalysis, dip stick CPT-4: 25090 03/28/2019 Urinalysis, dip stick CPT-4: 92691 03/28/2019 [id number] CPT-4: 61605 Unknown Gynecology Referral SNOMED CT: 490235806 CPT-4: R14 Unknown Reason For Visit No Reason For Visit data Plan of Care Planned Activity Notes Codes Status Date Patient Education: Patient Medication Summary Completed 09/29/2019 Appointment: Anna Culver WPtel: [phone] [id number] E452 09/19/2019 Appointment: Sudha Hernadez WPtel: [address] [facility] 202b [id number] 07/04/2019 Appointment: Sudha Hernadez WPtel: [address] [place] [address] [id number] 06/21/2019 Appointment: Charlene Oropeza WPtel: [address] [facility] [id number] 05/24/2019 Appointment: Bianca Delgadoedo E452 04/27/2019 Appointment: Charlene Oropeza WPtel: [address] [place] [address] [id number] 04/25/2019 Appointment: Rasta Palafox WPtel: [address] [place] [address] [id number] 03/28/2019 Appointment: Rasta Palafox WPtel: [address] [place] [address] [id number] [id number] 02/14/2019 Appointment: Rasta Palafox WPtel: [address] [place] [address] [id number] 01/31/2019 Appointment: Rasta Palafox WPtel: [address] [place] [address] [id number] 12/27/2018 Referral: Pending Gynecology Referral Information Referral Processed Referral: Pending Pulmonolog y Referral Information Referral Processed Referral: Pending Psychiatry Referral Information Referral Initiated Referral: Pending Respirator y Services Referral Information Referral Initiated Referral: Pending Ophthalmology Referral Information Referral Initiated Referral: [facility] WPtel: [address] [facility] [address] Land Department Head placed a call out to the patient to notify her that it has been recommended that she be seen by 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 Patient agreed to be seen, does not have a provider of choice and no transportation issues. Land Department Head faxed referral and clinical notes to [facility] in [place], [place] near the patient's home. Patient to [...] seen and prefers a provider in the [place] or [place] area. Land Department Head placed a call out to everyone listed in the area and the only location that was able to accept the patient's insurance was [facility] [address] [place] [address] and spoke with Maylin. Maylin asked that the patient's referral, face sheet and visit notes be faxed to . Land Department Head faxed over requested documents. Patient appointment confirmation letter generated and mailed to her home address. Patient to call to schedule an appointment. [facility]ed [facility] W[facility]: [address] [place] [address] Patient notified that it has been advised that she be seen by Neurology. Patient agreed to be seen and prefers to be seen by a provider in the [place], [place] area. Patient denies any concerns with transportation, and prefers to schedule her own appointment. Land Department Head placed a call out to [facility] and spoke with Neeraj Mcfarland: who confirmed that their office is able to accept new patients and the patient's insurance. After confirming the providers fax number, medical writer faxed over the patient's referral, [...]
--- OUTSIDE RECORDS SUMMARY | 2023-12-07 02:08 | XMS_ITS | CCD ---
Author Name Leena Culver NP Address [address] [place] [address] [place] [id number] Phone Organization [facility] Phone Care Team Providers Care Shanker Out Name Role Phone Anna Culver NP Primary Care Provider Unav ailable Unavailable Chronic Care Management Unavaila ble Summary Purpose DataExchange Insurance Providers Payer name Policy type / Coverage type Covered alliance party ID Effective Begin Date Effective End Date SUKI MAYO [id number] Unknown Unknown Family history Mother Diagnosis Age [...] Unknown Disability 05/31/[address]: 770060530 Has never s moked or chewed tobacco 05/31/[address]: 985156915 Never drinks alco hol 05/31/2018 Has the [...] complications ICD-10: E11.9 ICD-9: 250.00 10/03/2018 Active Diarrhea ICD-10: R19.7 ICD-9: 787.91 09/29/2019 Active Chronic kidney disease, unspecified ICD- 10: N18.9 ICD-9: 585.9 06/21/2019 Active Hypertensive heart disease w ith heart failure ICD-10: I11.0 ICD-9: 402.91 04/25/2019 Active Mixed incontinence ICD-10: N39.46 ICD-9: 788.33 05/24/2019 Active GERD (gastroesophageal reflu x disease) ICD-10: [...] ICD-10: Z12.4 ICD-9: V76.2 04/25/2019 Active Other prison (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 ICD-10: Z79.899 ICD-9: [...] Headache ICD-10: R51 ICD-9: 784.0 10/03/2018 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) ICD-10: Z79.1 ICD-9: V58.64 06/13/2018 Active Medications Medication Codes Instructions Start Date Stop Date Status Fill Instructions hydrochlorothiazide 25 mg tablet RxNorm: 529245 1 Tablet(s) Oral every day 10/17/19 20 2019 Inactive fenugreek seed extract 500 mg capsule RxNorm: 1 Capsule(s) Oral three times a day 10/17/19 20 2021 Inactive Alcohol Prep Pads RxNorm: 249199 1 Patch TOP QAM 10/16/192020 Inactive loperamide 2 mg tablet RxNorm: 103183 1 Tablet(s) Oral as needed take one [...] 2019 Inactive hydrochlorothiazide 25 mg tablet RxNorm: 655434 1 Tablet(s) Oral every day 09/19/20 19 2019 Inactive Sudafed 12 Hour 120 mg tablet,extended release RxNorm: 7455466 1 Tablet(s) Oral every 12 hours as needed 09/11/20 19 2018 Inactive omeprazole 20 mg capsule,delayed release RxNorm: 262524 1 Capsule(s) Oral every day 09/07/20 19 2019 Inactive Sudafed 12 Hour 120 mg tablet,extended release RxNorm: 0942408 1 Tablet(s) Oral every 12 hours as needed 09/04/20 19 2018 Inactive pantoprazole 40 mg tablet,delayed release RxNorm: 756248 1 Tablet(s) Oral every day 08/24/20 19 2018 Inactive discontinue any other H2Blkr. and PPI albuterol sulfate 2.5 mg/3 mL (0.083 %) solution for nebulization RxNorm: 078860 1 Vial Inhalation every four hours as needed as needed for dyspnea 08/17/20 19 2019 Inactive 60/box. This refill negates all other refills of this medication. Please do not fill early. Please do not auto refill. Symbicort 160 mcg-4.5 mcg/actuation HFA aerosol inhaler RxNorm: 5822755 2 Puff(s) INH BID 08/17/20 19 No Stop Date Active Alcohol Prep Pads RxNorm: 454736 1 Patch TOP QAM 08/17/20 19 2019 Inactive True Metrix Glucose Test Strip RxNorm: 1 Test Strips Miscellaneous QAM 08/09/20 19 2019 Inactive 100/container Ventolin HFA 90 mcg/actuation aerosol inhaler RxNorm: 193311 2 Puff(s) INH QID 08/09/20 19 2019 Inactive Please do not fill early. Please do not auto refill. This refill negates all other refills of this medication atorvastatin 40 mg tablet RxNorm: 599028 1 Tablet(s) Oral every day 07/04/20 19 2019 Inactive levmetamfetamine 50 mg nasal inhaler RxNorm: 1 Unit(s) NASAL Q3-4H Do not use more than every 3 hours or 8 times/24hours 06/26/20 19 2021 Inactive Please do not auto refill. This refill negates all other refills of this medication Singulair 10 mg tablet RxNorm: 178360 1 Tablet(s) PO daily 06/26/20 19 2019 Inactive This refill negates all other refills of this medication cetirizine 10 mg tablet RxNorm: 3289489 1 Tablet(s) PO daily 06/26/20 19 2019 Inactive This refill negates all other refills of this medication. Please do not auto refill levothyroxine 50 mcg tablet RxNorm: 114263 1 Tablet(s) PO daily 06/26/20 19 2019 Inactive This refill negates all other refills of this medication diclofenac sodium 75 mg tablet,delayed release RxNorm: 729511 1 Tablet(s) PO BID 06/26/20 19 2019 Inactive This refill negates all other refills of this medication buspirone 7.5 mg tablet RxNorm: 049676 1 Tablet(s) PO BID 06/26/20 19 2020 Inactive This refill negates all other refills of this medication hydrochlorothiazide 12.5 mg tablet RxNorm: 987964 1 Tablet(s) PO QAM 06/26/20 19 2019 Inactive Ventolin HFA 90 mcg/actuation aerosol inhaler RxNorm: 529824 2 Puff(s) INH QID 06/26/20 19 2018 Inactive Please do not fill early. Please do not auto refill. This refill negates all other refills of this medication ranitidine 150 mg tablet RxNorm: 286919 1 Tablet(s) PO BID 06/26/20 19 2018 Inactive This refill negates all other refills of this medication Calcium 600-D3 Plus (mag-zinc) 600 mg calcium-800 unit-50 mg tablet RxNorm: 1 Tablet(s) PO daily take an additonal tablet for itching. 06/26/20 19 2018 Inactive This refill negates all other refills of this medication albuterol sulfate 2.5 mg/3 mL (0.083 %) solution for nebulization RxNorm: 794316 1 Vial INH QID 06/26/20 19 2018 Inactive 60/box. This refill negates all other refills of this medication. Please do not fill early. Please do not auto refill. lisinopril 2.5 mg tablet RxNorm: 608712 1 Tablet(s) PO daily 06/21/20 19 2019 Inactive gabapentin 300 mg capsule RxNorm: 842634 1 Capsule(s) PO TID 06/21/20 19 2019 Inactive atorvastatin 20 mg tablet RxNorm: 084765 1 Tablet(s) PO QHS 06/07/20 19 2018 Inactive This refill negates all other refills of this medication TRUEplus Lancets 30 gauge RxNorm: 1 Lancets Miscellaneous QAM 05/29/20 19 2018 Inactive 100/box gabapentin 300 mg capsule RxNorm: 994001 1 Capsule(s) PO TID 05/03/20 19 2018 Inactive Flintstones Complete (iron) 18 mg iron chewable tablet RxNorm: 1 Tablet(s) PO daily 04/04/202021 Inactive This refill negates all other refills of this medication gabapentin 300 mg capsule RxNorm: 378701 1 Capsule(s) PO TID as needed 02/01/20 19 2018 Inactive True Metrix Glucose Test Strip RxNorm: 1 Test Strips Miscellaneous QA 02/01/20 19 2018 Inactive 100/container Alcohol Prep Pads RxNorm: 893361 1 Patch TOP QAM 02/01/20 19 2018 Inactive TRUEplus Lancets 30 gauge RxNorm: 1 Lancets Miscellaneous QAM 02/01/20 19 2018 Inactive 100/box lisinopril 2.5 mg tablet RxNorm: 353994 1 Tablet(s) PO daily 12/28/19 19 2018 Inactive ranitidine 150 mg tablet RxNorm: 169890 1 Tablet(s) PO BID 10/21/192018 Inactive This refill negates all other refills of this medication albuterol sulfate 2.5 mg/3 mL (0.083 %) solution for nebulization RxNorm: 689315 1 Vial INH QID 10/21/192018 Inactive 60/box. [...] this medication gabapentin 300 mg capsule RxNorm: 949868 1 Capsule(s) PO TID as needed 10/21/19 19 2018 Inactive atorvastatin 20 mg tablet RxNorm: 473260 1 Tablet(s) PO QHS 10/21/192018 Inactive This refill negates all other refills of this medication trazodone 50 mg tablet RxNorm: 352330 1 Tablet(s) PO QHS 10/21/19 19 2018 Inactive This refill negates all other refills of this medication Ventolin HFA 90 mcg/actuation aerosol inhaler RxNorm: 539222 2 Puff(s) INH QID 10/21/192018 Inactive Please do not fill early. Please do not auto refill. This refill negates all other refills of this medication Calcium 600-D3 Plus 600 mg calcium-800 unit-50 mg tablet RxNorm: 1 Tablet(s) PO daily take an additonal tablet for itching. 10/21/19 19 2018 Inactive This refill negates all other refills of this medication Singulair 10 mg tablet RxNorm: 754765 1 Tablet(s) PO daily 10/21/192018 Inactive This refill negates all other refills of this medication buspirone 7.5 mg tablet RxNorm: 069619 1 Tablet(s) PO BID 10/21/19 19 2018 Inactive This refill negates all other refills of this medication diclofenac sodium 75 mg tablet,delayed release RxNorm: 652385 1 Tablet(s) PO BID 10/21/19 19 2018 Inactive This refill negates all other refills of this medication hydrochlorothiazide 12.5 mg tablet RxNorm: 265843 1 Tablet(s) PO QAM 10/21/19 19 2018 Inactive metoprolol succinate ER 50 mg tablet,extended release 24 hr RxNorm: 411206 1 Tablet(s) PO daily 10/21/19 19 2018 Inactive This refill negates all other refills of this medication levothyroxine 50 mcg tablet RxNorm: 346157 1 Tablet(s) PO daily 10/21/19 19 2018 Inactive This refill negates all other refills of this medication cetirizine 10 mg tablet RxNorm: 7137595 1 Tablet(s) PO daily 10/21/192018 Inactive This refill negates all other refills of this medication. Please do not auto refill Flintstones Complete (iron) 18 mg iron chewable tablet RxNorm: 1 Tablet(s) PO daily 10/21/192018 Inactive This refill negates all other refills of this medication buspirone 7.5 mg tablet RxNorm: 158082 1 Tablet(s) PO BID 10/12/192018 Inactive cetirizine 10 mg tablet RxNorm: 6550502 1 Tablet(s) PO daily 09/28/202018 Inactive Guaiasorb DM 10 mg-100 mg/5 mL oral liquid RxNorm: 543466 10 Milliliter(s) PO As needed every 4 hr 09/24/202018 Inactive Vicks Vaporub 4.7 %-1.2 %-2.6 % topical ointment RxNorm: 7329968 1 Application TOP TID 09/24/20 18 2018 Inactive levmetamfetamine 50 mg nasal inhaler RxNorm: 1 Unit(s) NASAL Q3-4H 09/24/20 18 2017 Inactive sertraline 50 mg tablet RxNorm: 318729 1 Tablet(s) PO daily 09/09/20 18 2018 Inactive Please note dose trazodone 50 mg tablet RxNorm: 997202 1 Tablet(s) PO QHS 09/06/20 18 2018 Inactive sertraline 50 mg tablet RxNorm: 558034 1 Tablet(s) PO daily 09/06/20 18 2017 Inactive amoxicillin 500 mg tablet RxNorm: 803354 1 Tablet(s) PO Q12H 08/31/20 18 2017 Inactive albuterol sulfate 2.5 mg/3 mL (0.083 %) solution for nebulization RxNorm: 028511 1 Vial INH QID 08/10/20 18 2018 Inactive 60/box. Please do not fill early. Please do not auto refill. Prozac 10 mg capsule RxNorm: 706241 1 Capsule(s) PO daily 08/09/20 18 2017 Inactive buspirone 7.5 mg tablet RxNorm: 185758 1 Tablet(s) PO BID 08/09/20 18 2018 Inactive gabapentin 300 mg capsule RxNorm: 296331 1 Capsule(s) PO TID as needed 08/01/20 18 2018 Inactive hydrochlorothiazide 12.5 mg tablet RxNorm: 767533 1 Tablet(s) PO QAM 08/01/20 18 2018 Inactive ranitidine 150 mg tablet RxNorm: 722348 1 Tablet(s) PO BID 08/01/20 18 2018 Inactive Macrobid 100 mg capsule RxNorm: 457294 1 Capsule(s) PO Q12H 06/21/20 18 2017 Inactive Singulair 10 mg tablet RxNorm: 777594 1 Tablet(s) PO daily 06/14/20 18 2018 Inactive Ventolin HFA 90 mcg/actuation aerosol inhaler RxNorm: 9196319 2 Puff(s) INH QID 06/14/20 18 2018 Inactive Singulair 10 mg tablet RxNorm: 845365 1 Tablet(s) PO daily 06/14/20 18 2017 Inactive buspirone 7.5 mg tablet RxNorm: 732360 1 Tablet(s) PO BID 06/14/20 18 2017 Inactive Prozac 10 mg capsule RxNorm: 476968 1 Capsule(s) PO daily 06/14/20 18 2017 Inactive Neilmed Pediatric Sinus Rinse Refill packet RxNorm: 1 Unit Dose NASAL PRN 05/31/20 18 2021 Inactive diclofenac sodium 75 mg tablet,delayed release RxNorm: 272036 1 Tablet(s) PO BID 05/31/20 18 2017 Inactive lisinopril 2.5 mg tablet RxNorm: 440434 1 Tablet(s) PO daily 05/31/20 18 2017 Inactive metoprolol succinate ER 50 mg tablet,extended release 24 hr RxNorm: 681422 1 Tablet(s) PO daily 05/31/20 18 2017 Inactive levothyroxine 50 mcg tablet RxNorm: 432524 1 Tablet(s) PO daily 05/31/20 18 2017 Inactive TRUEplus Lancets 30 gauge RxNorm: 1 Lancets Miscellaneous QAM 05/31/20 18 2017 Inactive 100/box Ventolin HFA 90 mcg/actuation aerosol inhaler RxNorm: 629052 2 Puff(s) INH QID 05/31/20 18 2017 Inactive Aleve 220 mg capsule RxNorm: 0988923 1 Capsule(s) PO BID 05/31/20 18 2018 Inactive ranitidine 150 mg tablet RxNorm: 579021 1 Tablet(s) PO BID 05/31/20 18 2017 Inactive gabapentin 300 mg capsule RxNorm: 209392 1 Capsule(s) PO TID as needed 05/31/20 18 2017 Inactive atorvastatin 20 mg tablet RxNorm: 803439 1 Tablet(s) PO QHS 05/31/20 18 2017 Inactive True Metrix Glucose Test Strip RxNorm: 1 Test Strips Miscellaneous QAM 05/31/20 18 2017 Inactive 50/container Calcium 600-D3 Plus 600 mg calcium-800 unit-50 mg tablet RxNorm: 1 Tablet(s) PO daily take an additonal tablet for itching. 05/31/20 18 2017 Inactive hydrochlorothiazide 12.5 mg tablet RxNorm: 253140 1 Tablet(s) PO QAM 05/31/20 18 2017 Inactive Flintstones Complete (iron) 18 mg iron chewable tablet RxNorm: 1 Tablet(s) PO daily 05/31/20 18 2017 Inactive sertraline 50 mg tablet RxNorm: 787097 1 Tablet(s) PO daily 11/28/19 20 2019 Inactive d-mannose oral powder RxNorm: PO 18 2021 Inactive True Metrix Glucose Meter RxNorm: miscellaneous 08/17/20 19 2018 Inactive loperamide 2 mg tablet RxNorm: 332525 oral 09/29/20 19 2018 Inactive Symbicort 160 mcg-4.5 mcg/actuation HFA aerosol inhaler RxNorm: 5252890 2 Puff(s) INH BID 08/17/20 19 2018 Inactive Medication Administered No Medication Administered data Results Observation Observation Code Item Item Code Result Date Service Location URIC ACID 86554 Uric Acid 3084-1 6.1 mg/dL 10/18/19 [facility] [address] [place] [address] COMPLETE CBC W/ DIFF WBC 44309 WBC 6690-2 10.0 K/ul 10/18/19 [facility] [address] [place] [address] COMPLETE CBC W/ DIFF WBC 29429 RBC 789-8 4.41 M/uL 10/18/19 [facility] [address] [place] [address] COMPLETE CBC W/ DIFF WBC 51631 Hemoglobin 718-7 12.1 g/dL 10/18/19 [facility] [address] [place] [address]122 COMPLETE CBC W/ DIFF WBC 07597 Hematocrit 4544-3 36.6 % 10/18/19 [facility] [address] [place] [address] COMPLETE CBC W/ DIFF WBC 60653 MCV 787-2 83.1 fL 10/18/19 [facility] [address] [place], [place] [address] COMPLETE CBC W/ DIFF WBC 29640 MCH 785-6 27.5 pg 10/18/19 [facility] [address] [place] [address] COMPLETE CBC W/ DIFF WBC 67528 MCHC 786-4 33.1 g/dL 10/18/19 [facility] [address] [place] [address] COMPLETE CBC W/ DIFF WBC 41128 RDW 788-0 14.6 % 10/18/19 [facility] [address] [place] [address] COMPLETE CBC W/ DIFF WBC 99662 Platelet Count 777-3 356 K/uL 10/18/19 [facility] [address] [place] [address] 11855 COMPLETE CBC W/ DIFF WBC 99132 MPV 79327-5 8.8 fL 10/18/19 [facility] [address] [place] [address] 01788 COMPLETE CBC W/ DIFF WBC 69883 Neutrophils % 770-8 71.7 % 10/18/19 [facility] [address] [place] [address] 46487 COMPLETE CBC W/ DIFF WBC 13018 Lymphocytes % 736-9 22.0 % 10/18/19 [facility] [address] [place] [address] 30825 COMPLETE CBC W/ DIFF WBC 14194 Monocytes % 5905-5 4.9 % 10/18/19 [facility] [address] [place] [address] 93699 COMPLETE CBC W/ DIFF WBC 12177 Eosinophils % 713-8 0.7 % 10/18/19 [facility] [address] [place] [address] COMPLETE CBC W/ DIFF WBC 77717 Basophils% 706-2 0.7 % 10/18/19 [facility] [address] [place] [address] 44236 COMPLETE CBC W/ DIFF WBC 31552 Absolute Neutrophil 751-8 7170 /ul 10/18/19 [facility] [address] [place] [address] 89303 COMPLETE CBC W/ DIFF WBC 62553 Absolute Lymphocyte 89008-6 2200 /ul 10/18/19 [facility] [address] [place] [address] 81708 COMPLETE CBC W/ DIFF WBC 59799 Absolute Monocyte 742-7 490 /ul 10/18/19 [facility] [address] [place] [address] 40374 COMPLETE CBC W/ DIFF WBC 37549 Absolute Eosinophil 711-2 70 /ul 10/18/19 [facility] [address] [place] [address] 32783 COMPLETE CBC W/ DIFF WBC 53024 Absolute Basophil 704-7 70 /ul 10/18/19 [facility] [address] [place] [address] 47526 [id number] OBIN 4548-4 Glyco HGB A1C 53316-9 6.0 % 10/18/19 [facility] [address] [place] [address] [id number] OBIN 4548-4 eAG 30768-6 126 mg/dL 10/18/19 [facility] [address] [place] [address] 15383 CHEM 14 (METABOLIC PANEL) 05068 Glucose 2345-7 117 mg/dL 10/18/19 [facility] [address] [place] [address] 31842 CHEM 14 (METABOLIC PANEL) 19103 BUN 3094-0 9 mg/dL 10/18/19 [facility] [address] [place] [address] 24013 CHEM 14 (METABOLIC PANEL) 78465 Creatinine 2160-0 0.7 mg/dL 10/18/19 [facility] [address] [place] [address] 00731 CHEM 14 (METABOLIC PANEL) 84338 BUN/Creat Ratio 3097-3 12.2 10/18/19 [facility] [address] [place] [address] 17362 CHEM 14 (METABOLIC PANEL) 01819 GFR Estimated 82645-2 90 mL/min/1.7 3m2 10/18/19 [facility] [address] [place] [address] 96405 CHEM 14 (METABOLIC PANEL) 84821 GFR Estimated for Americans 01911-4 109 mL/min/1.7 3m2 10/18/19 [facility] [address] [place] [address] 47694 CHEM 14 (METABOLIC PANEL) 35343 Sodium 2951-2 140 mmol/L 10/18/19 [facility] [address] [place] [address] 93165 CHEM 14 (METABOLIC PANEL) 73097 Potassium 2823-3 4.2 mmol/L 10/18/19 [facility] [address] [place] [address] 59325 CHEM 14 (METABOLIC PANEL) 55713 Chloride 2075-0 107 mmol/L 10/18/19 [facility] [address] [place] [address] 31694 CHEM 14 (METABOLIC PANEL) 69987 Total CO2 2028-9 28 mmol/L 10/18/19 [facility] [address] [place] [address] 50591 CHEM 14 (METABOLIC PANEL) 45931 Anion Gap 1863-0 9.2 mEq/L 10/18/19 [facility] [address] [place] [address] 72082 CHEM 14 (METABOLIC PANEL) 13983 Calculated Serum Osmolality 76254-9 290 mOsm/kg 10/18/19 [facility] [address] [place] [address] 19614 CHEM 14 (METABOLIC PANEL) 18589 Albumin 34078-1 3.4 g/dL 10/18/19 [facility] [address] [place] [address] 05057 CHEM 14 (METABOLIC PANEL) 71306 Total Protein 2885-2 7.0 g/dL 10/18/19 [facility] [address] [place] [address] 54549 CHEM 14 (METABOLIC PANEL) 14117 Globulin 2336-6 3.6 g/dL 10/18/19 [facility] [address] [place] [address] 35178 CHEM 14 (METABOLIC PANEL) 45064 Albumin/Globuli n Ratio 1759-0 0.9 10/18/19 [facility] [address] [place] [address] 85444 CHEM 14 (METABOLIC PANEL) 54306 ALK PHOS 6768-6 90.00 U/L 10/18/19 [facility] [address] [place] [address] 19160 CHEM 14 (METABOLIC PANEL) 34583 SGOT/AST 1920-8 15 U/L 10/18/19 [facility] [address] [place] [address] 79686 CHEM 14 (METABOLIC PANEL) 44592 SGPT/ALT 1743-4 34 U/L 10/18/19 [facility] [address] [place] [address] 88354 CHEM 14 (METABOLIC PANEL) 21812 Total Bilirubin 1975-2 0.6 mg/dL 10/18/19 [facility] [address] [place] [address] 01826 CHEM 14 (METABOLIC PANEL) 65617 Calcium 47189-0 9.2 mg/dL 10/18/19 [facility] [address] [place] [address] 18082 CHEM 14 (METABOLIC PANEL) 11308 Corrected Calcium 83344-5 9.8 mg/dL 10/18/19 [facility] [address] [place] [address] 95695 TSH 88117 TSH 05680-2 1.380 uIU/mL 10/18/19 [facility] [address] [place] [address] PREALBUMIN 75716 Prealbumin 88533-4 23 mg/dL 10/18/19 [facility] [address] [place] [address] Procedures Procedure Codes Date [place] Assessment CPT-4: DSWA 10/03 Hypertension CPT-4: HTN 10/17/2019 Hypertension Hypertension Follow Up Plan/Lifestyle modification weight reduction, Hypertension Follow Up Plan/Repeat BP measurement within one month, Hypertension Follow Up Plan/Lifestyle modification including reduce salt intake CPT-4: HTNUnknown 10/17/2019 [place] Assessment CPT-4: DSWA 10/03 Glucose Blood Test CPT-4: 72444 10/17/2019 Fall Risk Assessment SNOMED CT: 70457153 4 CPT-4: DFRA 09/19/2019 Functional Assessment CPT-4: DFA 09/19/2019 Urinalysis, dip stick CPT-4: 10841 06/21/2019 Tobacco Assessment/Screening CPT-4: TCA Patient Health Questionnaire CPT-4: DPHQ AHA/REBECCA Classification Assessment CPT-4: DAHA 04/25/2019 Controlled Substance Report CPT-4: CTRSU 04/03 Urinalysis, dip stick CPT-4: 77773 03/28/2019 Urinalysis, dip stick CPT-4: 33992 03/28/2019 [id number] CPT-4: 63579 Unknown [id number] CPT-4: 77367 Unknown Gynecology Referral SNOMED CT: 167083358 CPT-4: R14 Unknown Vital Signs Date Vital 10/17/2019 Blood Pressure 1: 110/62 Code: 8480-6 BMI: 59.6 Code: 23510-3 Heart Rate 1: 101 bpm Height: 4'11 Code: 8302-2 Random Blood Sugar: 144/NaN Respiratory Rate: 16 bpm SpO2: 99% Temperature: 36.7 (C) / 98.0 (F) Weight: 295 lbs Code: 03216-0 Reason For Visit Reason For Visit Effective Dates Notes hypertension 10/17/2019 diabetes mellitus 10/17/2019 Encounters Encounter Performer Location Location Address Codes Magdi e HOME VISIT EST PATIENT Diagnosis: Essential (primary) hypertension[ICD10 : I10] Diagnosis: Type 2 diabetes mellitus without complications[ICD1 0: E11.9] Diagnosis: Obstructive sleep apnea (adult) (pediatric)[ICD10: G47.33] Diagnosis: Asthma[ICD10: J45.909] Diagnosis: Adjustment disorder with mixed anxiety and depressed mood[ICD10: F43.23] Anan Culver [place] [facility] [address] [place] [address] CPT-4: 86058 10/17/2019 Plan of Care Planned Activity Notes Codes Status Date Visit Plan: t N18.9-585.9 Chroni c kidney disease, unspecified avoid nephro toxic drugs, 07/04/2019 BUN 17 creatinine 0.7 GFR 93 Patient denies ability to drink water stating that it dehydrates her-doesn't know diagnosis, but indicates she was told this by previous urologist Will refer to urology -first appointment 10/25/2019 I10-401.9 Essential (primary) hypertension I11.0-402.91 Hypertensive heart disease with heart failure bp as documented, good for age cont hctz 10/17/2019 HTN assessment, encourage lifestyle modifications, exercise, weight loss, and limiting fried and greasy foods, labs drawn, results pending E03.9-244.9 Hypothyroidism, unspecified cont levothyroxine N39.46-788.33 Mixed incontinence use of incontinence supplies E11.9-250.00 Type 2 diabetes mellitus without complications fluctuating blood sugars range 95-173 tests one time a day-advised to test at varied times throughout the day-BS log left with patient 07/04/2019 Hgb A1C 5.6 10/17/2019 [place] 04/11-instructed on good daily foot care routine follow up with Dr. Gonzales, podiatry-wanting diabetic shoes-advised to have bull gang supervisor send something to office for signature-pt to have bull gang supervisor call office for instruction to send paperwork ophthalmology referral initiated labs drawn, results pending G47.33-327.23 Obstructive sleep apnea (adult) (pediatric) J45.909-493.90 Asthma Recent ED visit for difficulty breathing-records requested continue inhalers and nebulizer wears cpap every night, believes that is helpful 10/22/2019 Dr. Garcia, pulmonology for chronic sleep apnea and asthma F43.23-309.28 Adjustment disorder with mixed anxiety and depressed mood [facility] [place] has first appt today 10/17/2019 Patient Education: Patient Medication Summary Completed 10/17/2019 Patient Education: Obesity Completed 10/17/2019 Appointment: Anna Culver WPtel: [id number] [place], [place] [id number] 09/19/2019 Appointment: Sudha Hernadez WPtel: [address] [place] [address] [id number] 07/04/2019 Appointment: Sudha Hernadez WPtel: [address] [place] [address] [id number] 06/21/2019 Appointment: Charlene Oropeza WPtel: [address] [place] [address] [id number] 05/24/2019 Appointment: Mallory Delgado E452 04/27/2019 Appointment: Charlene Oropeza WPtel: [address] [place] [address] [id number] 04/25/2019 Appointment: Rasta Palafox WPtel: [address] [place] [address] [id number] 03/28/2019 Appointment: Rasta Palafox WPtel: [address] [place] [address] [id number] E452 02/14/2019 Appointment: Rasta Palafox WPtel: [address] [place] [address] [id number] E452 01/31/2019 Appointment: Rasta Palafox WPtel: [address] [place] [address] [id number] 12/27/2018 Referral: Pending Gynecology Referral Information Referral Processed Referral: Pending Pulmonolog y Referral Information Referral Processed Referral: Pending Psychiatry Referral Information Referral Initiated Referral: Pending Respirator y Services Referral Information Referral Initiated Referral: Pending Ophthalmology Referral Information Referral Initiated Referral: [facility] WPtel: [address] [facility] [address] Communications Technologist placed a call out to the patient to notify her that it has been recommended that she be seen by 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 Patient agreed to be seen, does not have a provider of choice and no transportation issues. Communications Technologist faxed referral and clinical notes to [facility] in [place], [place] near the patient's home. Patient to [...] seen and prefers a provider in the [place] or [place] area. Communications Technologist placed a call out to everyone listed in the area and the only location that was able to accept the patient's insurance was [place] [address] [place] [address] and spoke with Maylin. Maylin asked that the patient's referral, face sheet and visit notes be faxed to . Communications Technologist faxed over requested documents. Patient appointment confirmation letter generated and mailed to her home address. Patient to call to schedule an appointment. Processed Referral: [facility] WPtel: [address] [facility] [address] [place], [place] [address] Patient notified that it has been advised that she be seen by Neurology. Patient agreed to be seen and prefers to be seen by a provider in the [place], [place] area. Patient denies any concerns with transportation, and prefers to schedule her own appointment. Communications Technologist placed a call out to [facility] and spoke with Neeraj P: who confirmed that their office is able to accept new patients and the patient's insurance. After confirming the providers fax number, typewriter tester faxed over the patient's referral, and [...] Assessment and plan reviewed with patient . t N18.9-585.9 Chronic kidney disease, unspecified avoid nephro toxic drugs, 07/04/2019 BUN 17; creatinine 0.7; GFR 93 Patient denies ability to drink water stating that it dehydrates her-doesn't know diagnosis, but indicates she was told this by previous urologist Will refer to urology -first appointment 10/25/2019 I10-401.9 Essential (primary) hypertension I11.0-402.91 Hypertensive heart disease with heart failure bp as documented, good for age cont hctz 10/17/2019 HTN assessment, encourage lifestyle modifications, exercise, weight loss, and limiting fried and greasy foods, labs drawn, results pending E03.9-244.9 Hypothyroidism, unspecified cont levothyroxine N39.46-788.33 Mixed incontinence use of incontinence supplies E11.9-250.00 Type 2 diabetes mellitus without complications fluctuating blood sugars range 95-173 tests one time a day-advised to test at varied times throughout the day-BS log left with patient 07/04/2019 Hgb A1C 5.6 10/17/2019 Inocente Soares 7/10-instructed on good daily foot care routine follow up with Dr. Gonzales, podiatry-wanting diabetic shoes-advised to have bull gang supervisor send something to office for signature-pt to have bull gang supervisor call office for instruction to send paperwork ophthalmology referral initiated labs drawn, results pending G47.33-327.23 Obstructive sleep apnea (adult) (pediatric); J45.909-493.90 Asthma Recent ED visit for difficulty breathing-records requested continue inhalers and nebulizer wears cpap every night, believes that is helpful 10/22/2019 Dr. Garcia, pulmonology for chronic sleep apnea and asthma F43.23-309.28 Adjustment disorder with mixed anxiety and depressed mood [place] [facility] [place] has first appt today 10/17/2019 Medical Equipment No Medical Equipment data Advance Directives No Advance Directive data
--- OUTSIDE RECORDS SUMMARY | 2023-12-07 02:08 | XMS_ITS | CCD ---
Author Name Leena Culver NP Address [address] [place] [address] [address] [place] [address] Phone Organization [facility] Phone Care Team Providers Care Drying Unit Felting Machine Operator Name Role Phone Anna Culver NP Primary Care Provider Unav ailable Unavailable Chronic Care Management Unavaila ble Summary Purpose DataExchange Insurance Providers Payer name Policy type / Coverage type Covered republican ID Effective Begin Date Effective End Date SUKI MAYO [id number] Unknown Unknown Family history Mother Diagnosis Age [...] Unknown Disability 05/31/[address]: 925714912 Has never s moked or chewed tobacco 05/31/[address]: 794009733 Never drinks alco hol 05/31/2018 Has the [...] Condition Codes Effective Dates Condition St atus Hypertensive heart disease w ith heart failure ICD-10: I11.0 ICD-9: 402.91 04/25/2019 Active Type 2 diabetes mellitus wit hout complications ICD-10: E11.9 ICD-9: 250.00 10/03/2018 Active Adjustment disorder with mix ed anxiety and depressed mood ICD-10: F43.23 ICD-9: 309.28 09/05/2018 Active Asthma ICD-10: J45.909 ICD-9: 493.90 08/08/2018 Active Essential (primary) hypertension ICD-10: I10 ICD-9: 401.9 10/03/2018 Active Obstructive sleep apnea (chio lt) (pediatric) ICD-10: G47.33 ICD-9: 327.23 06/21/2019 Active Diarrhea ICD-10: R19.7 ICD-9: 787.91 09/29/2019 Active Chronic kidney disease, unspecified ICD- 10: N18.9 ICD-9: 585.9 06/21/2019 Active Mixed incontinence ICD-10: N39.46 ICD-9: 788.33 [...] ICD-10: Z12.4 ICD-9: V76.2 04/25/2019 Active Other 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 ICD-10: Z79.899 ICD-9: [...] ICD-10: R51 ICD-9: 784.0 10/03/2018 Active terminal press operator (current) use of non-steroidal anti-inflammatories (NSAID) ICD-10: Z79.1 ICD-9: V58.64 06/13/2018 Active Medications Medication Codes Instructions Start Date Stop Date Status Fill Instructions multivitamin with iron-mineral tablet RxNorm: 1 Tablet(s) Oral every day 10/29/19 20 2021 Inactive cetirizine 10 mg tablet RxNorm: 5303933 1 Tablet(s) PO daily 10/20/192019 Inactive This refill negates all other refills of this medication. Please do not auto refill Singulair 10 mg tablet RxNorm: 503517 1 Tablet(s) PO daily 10/20/192019 Inactive This refill negates all other refills of this medication gabapentin 300 mg capsule RxNorm: 700931 1 Capsule(s) PO TID 10/20/19 20 2019 Inactive lisinopril 2.5 mg tablet RxNorm: 377688 1 Tablet(s) PO daily 10/20/192019 Inactive levothyroxine 50 mcg tablet RxNorm: 082469 1 Tablet(s) PO daily 10/20/19 20 2019 Inactive This refill negates all other refills of this medication hydrochlorothiazide 25 mg tablet RxNorm: 078444 1 Tablet(s) Oral every day 10/17/19 20 2019 Inactive fenugreek seed extract 500 mg capsule RxNorm: 1 Capsule(s) Oral three times a day 10/17/19 20 2021 Inactive Alcohol Prep Pads RxNorm: 633154 1 Patch TOP QAM 10/16/19 20 2020 Inactive loperamide 2 mg tablet RxNorm: 448441 1 Tablet(s) Oral as needed take one [...] 2019 Inactive hydrochlorothiazide 25 mg tablet RxNorm: 283532 1 Tablet(s) Oral every day 09/19/202019 Inactive Sudafed 12 Hour 120 mg tablet,extended release RxNorm: 2722631 1 Tablet(s) Oral every 12 hours as needed 09/11/20 19 2018 Inactive omeprazole 20 mg capsule,delayed release RxNorm: 478785 1 Capsule(s) Oral every day 09/07/20 19 2019 Inactive Sudafed 12 Hour 120 mg tablet,extended release RxNorm: 9187244 1 Tablet(s) Oral every 12 hours as needed 09/04/20 19 2018 Inactive pantoprazole 40 mg tablet,delayed release RxNorm: 816285 1 Tablet(s) Oral every day 08/24/20 2018 Inactive discontinue any other H2Blkr. and PPI albuterol sulfate 2.5 mg/3 mL (0.083 %) solution for nebulization RxNorm: 801818 1 Vial Inhalation every four hours as needed as needed for dyspnea 08/17/20 19 2019 Inactive 60/box. This refill negates all other refills of this medication. Please do not fill early. Please do not auto refill. Symbicort 160 mcg-4.5 mcg/actuation HFA aerosol inhaler RxNorm: 5538674 2 Puff(s) INH BID 08/17/20 19 No Stop Date Active Alcohol Prep Pads RxNorm: 131507 1 Patch TOP QAM 08/17/20 19 2019 Inactive True Metrix Glucose Test Strip RxNorm: 1 Test Strips Miscellaneous QAM 08/09/20 19 2019 Inactive 100/container Ventolin HFA 90 mcg/actuation aerosol inhaler RxNorm: 221914 2 Puff(s) INH QID 08/09/202019 Inactive Please do not fill early. Please do not auto refill. This refill negates all other refills of this medication atorvastatin 40 mg tablet RxNorm: 480030 1 Tablet(s) Oral every day 07/04/20 19 2019 Inactive levmetamfetamine 50 mg nasal inhaler RxNorm: 1 Unit(s) NASAL Q3-4H Do not use more than every 3 hours or 8 times/24hours 06/26/20 19 2021 Inactive Please do not auto refill. This refill negates all other refills of this medication diclofenac sodium 75 mg tablet,delayed release RxNorm: 998786 1 Tablet(s) PO BID 06/26/20 19 2019 Inactive This refill negates all other refills of this medication buspirone 7.5 mg tablet RxNorm: 715131 1 Tablet(s) PO BID 06/26/20 19 2020 Inactive This refill negates all other refills of this medication hydrochlorothiazide 12.5 mg tablet RxNorm: 123543 1 Tablet(s) PO QAM 06/26/20 19 2019 Inactive Ventolin HFA 90 mcg/actuation aerosol inhaler RxNorm: 322470 2 Puff(s) INH QID 06/26/20 19 2018 Inactive Please do not fill early. Please do not auto refill. This refill negates all other refills of this medication Singulair 10 mg tablet RxNorm: 589875 1 Tablet(s) PO daily 06/26/20 19 2019 Inactive This refill negates all other refills of this medication cetirizine 10 mg tablet RxNorm: 7824113 1 Tablet(s) PO daily 06/26/20 19 2019 Inactive This refill negates all other refills of this medication. Please do not auto refill levothyroxine 50 mcg tablet RxNorm: 050689 1 Tablet(s) PO daily 06/26/20 19 2019 Inactive This refill negates all other refills of this medication ranitidine 150 mg tablet RxNorm: 466164 1 Tablet(s) PO BID 06/26/20 19 2018 Inactive This refill negates all other refills of this medication Calcium 600-D3 Plus (mag-zinc) 600 mg calcium-800 unit-50 mg tablet RxNorm: 1 Tablet(s) PO daily take an additonal tablet for itching. 06/26/20 19 2018 Inactive This refill negates all other refills of this medication albuterol sulfate 2.5 mg/3 mL (0.083 %) solution for nebulization RxNorm: 444588 1 Vial INH QID 06/26/20 19 2018 Inactive 60/box. This refill negates all other refills of this medication. Please do not fill early. Please do not auto refill. lisinopril 2.5 mg tablet RxNorm: 018116 1 Tablet(s) PO daily 06/21/20 19 2019 Inactive gabapentin 300 mg capsule RxNorm: 918986 1 Capsule(s) PO TID 06/21/20 19 2019 Inactive atorvastatin 20 mg tablet RxNorm: 162002 1 Tablet(s) PO QHS 06/07/20 19 2018 Inactive This refill negates all other refills of this medication TRUEplus Lancets 30 gauge RxNorm: 1 Lancets Miscellaneous QAM 05/29/20 19 2018 Inactive 100/box gabapentin 300 mg capsule RxNorm: 413204 1 Capsule(s) PO TID 05/03/20 19 2018 Inactive Flnickolas Complete (iron) 18 mg iron chewable tablet RxNorm: 1 Tablet(s) PO daily 04/04/202021 Inactive This refill negates all other refills of this medication gabapentin 300 mg capsule RxNorm: 514287 1 Capsule(s) PO TID as needed 02/01/202018 Inactive True Metrix Glucose Test Strip RxNorm: 1 Test Strips Miscellaneous QAM 02/01/20 19 2018 Inactive 100/container Alcohol Prep Pads RxNorm: 514580 1 Patch TOP QAM 02/01/20 19 2018 Inactive TRUEplus Lancets 30 gauge RxNorm: 1 Lancets Miscellaneous QAM 02/01/20 19 2018 Inactive 100/box lisinopril 2.5 mg tablet RxNorm: 350598 1 Tablet(s) PO daily 12/28/19 19 2018 Inactive ranitidine 150 mg tablet RxNorm: 035986 1 Tablet(s) PO BID 10/21/192018 Inactive This refill negates all other refills of this medication albuterol sulfate 2.5 mg/3 mL (0.083 %) solution for nebulization RxNorm: 622750 1 Vial INH QID 10/21/192018 Inactive 60/box. [...] this medication gabapentin 300 mg capsule RxNorm: 497325 1 Capsule(s) PO TID as needed 10/21/192018 Inactive atorvastatin 20 mg tablet RxNorm: 469665 1 Tablet(s) PO QHS 10/21/19 19 2018 Inactive This refill negates all other refills of this medication trazodone 50 mg tablet RxNorm: 171829 1 Tablet(s) PO QHS 10/21/19 19 2018 Inactive This refill negates all other refills of this medication Ventolin HFA 90 mcg/actuation aerosol inhaler RxNorm: 295279 2 Puff(s) INH QID 10/21/192018 Inactive Please do not fill early. Please do not auto refill. This refill negates all other refills of this medication Calcium 600-D3 Plus 600 mg calcium-800 unit-50 mg tablet RxNorm: 1 Tablet(s) PO daily take an additonal tablet for itching. 10/21/192018 Inactive This refill negates all other refills of this medication Singulair 10 mg tablet RxNorm: 722008 1 Tablet(s) PO daily 10/21/192018 Inactive This refill negates all other refills of this medication buspirone 7.5 mg tablet RxNorm: 912736 1 Tablet(s) PO BID 10/21/192018 Inactive This refill negates all other refills of this medication diclofenac sodium 75 mg tablet,delayed release RxNorm: 632714 1 Tablet(s) PO BID 10/21/19 19 2018 Inactive This refill negates all other refills of this medication hydrochlorothiazide 12.5 mg tablet RxNorm: 866019 1 Tablet(s) PO QAM 10/21/19 19 2018 Inactive metoprolol succinate ER 50 mg tablet,extended release 24 hr RxNorm: 426907 1 Tablet(s) PO daily 10/21/192018 Inactive This refill negates all other refills of this medication levothyroxine 50 mcg tablet RxNorm: 782289 1 Tablet(s) PO daily 10/21/192018 Inactive This refill negates all other refills of this medication cetirizine 10 mg tablet RxNorm: 8791693 1 Tablet(s) PO daily 10/21/192018 Inactive This refill negates all other refills of this medication. Please do not auto refill Flintstones Complete (iron) 18 mg iron chewable tablet RxNorm: 1 Tablet(s) PO daily 10/21/192018 Inactive This refill negates all other refills of this medication buspirone 7.5 mg tablet RxNorm: 060442 1 Tablet(s) PO BID 10/12/192018 Inactive cetirizine 10 mg tablet RxNorm: 1079475 1 Tablet(s) PO daily 09/28/202018 Inactive Guaiasorb DM 10 mg-100 mg/5 mL oral liquid RxNorm: 493693 10 Milliliter(s) PO As needed every 4 hr 09/24/202018 Inactive Vicks Vaporub 4.7 %-1.2 %-2.6 % topical ointment RxNorm: 7407230 1 Application TOP TID 09/24/202018 Inactive levmetamfetamine 50 mg nasal inhaler RxNorm: 1 Unit(s) NASAL Q3-4H 09/24/20 18 2017 Inactive sertraline 50 mg tablet RxNorm: 751718 1 Tablet(s) PO daily 09/09/20 18 2018 Inactive Please note dose trazodone 50 mg tablet RxNorm: 995188 1 Tablet(s) PO QHS 09/06/20 18 2018 Inactive sertraline 50 mg tablet RxNorm: 385560 1 Tablet(s) PO daily 09/06/20 18 2017 Inactive amoxicillin 500 mg tablet RxNorm: 084896 1 Tablet(s) PO Q12H 08/31/20 18 2017 Inactive albuterol sulfate 2.5 mg/3 mL (0.083 %) solution for nebulization RxNorm: 024921 1 Vial INH QID 08/10/20 18 2018 Inactive 60/box. Please do not fill early. Please do not auto refill. Prozac 10 mg capsule RxNorm: 065420 1 Capsule(s) PO daily 08/09/20 18 2017 Inactive buspirone 7.5 mg tablet RxNorm: 152366 1 Tablet(s) PO BID 08/09/20 18 2018 Inactive gabapentin 300 mg capsule RxNorm: 858344 1 Capsule(s) PO TID as needed 08/01/20 18 2018 Inactive hydrochlorothiazide 12.5 mg tablet RxNorm: 672668 1 Tablet(s) PO QAM 08/01/20 18 2018 Inactive ranitidine 150 mg tablet RxNorm: 995380 1 Tablet(s) PO BID 08/01/20 18 2018 Inactive Macrobid 100 mg capsule RxNorm: 044208 1 Capsule(s) PO Q12H 06/21/20 18 2017 Inactive Singulair 10 mg tablet RxNorm: 404848 1 Tablet(s) PO daily 06/14/20 18 2018 Inactive Ventolin HFA 90 mcg/actuation aerosol inhaler RxNorm: 7896985 2 Puff(s) INH QID 06/14/20 18 2018 Inactive Singulair 10 mg tablet RxNorm: 713235 1 Tablet(s) PO daily 06/14/20 18 2017 Inactive buspirone 7.5 mg tablet RxNorm: 827410 1 Tablet(s) PO BID 06/14/20 18 2017 Inactive Prozac 10 mg capsule RxNorm: 644176 1 Capsule(s) PO daily 06/14/20 18 2017 Inactive Neilmed Pediatric Sinus Rinse Refill packet RxNorm: 1 Unit Dose NASAL PRN 05/31/20 18 2021 Inactive diclofenac sodium 75 mg tablet,delayed release RxNorm: 556680 1 Tablet(s) PO BID 05/31/20 18 2017 Inactive lisinopril 2.5 mg tablet RxNorm: 682710 1 Tablet(s) PO daily 05/31/20 18 2017 Inactive metoprolol succinate ER 50 mg tablet,extended release 24 hr RxNorm: 551804 1 Tablet(s) PO daily 05/31/20 18 2017 Inactive levothyroxine 50 mcg tablet RxNorm: 455913 1 Tablet(s) PO daily 05/31/20 18 2017 Inactive TRUEplus Lancets 30 gauge RxNorm: 1 Lancets Miscellaneous QAM 05/31/20 18 2017 Inactive 100/box Ventolin HFA 90 mcg/actuation aerosol inhaler RxNorm: 571485 2 Puff(s) INH QID 05/31/20 18 2017 Inactive Aleve 220 mg capsule RxNorm: 9943677 1 Capsule(s) PO BID 05/31/20 18 2018 Inactive ranitidine 150 mg tablet RxNorm: 671051 1 Tablet(s) PO BID 05/31/20 18 2017 Inactive gabapentin 300 mg capsule RxNorm: 973812 1 Capsule(s) PO TID as needed 05/31/20 18 2017 Inactive atorvastatin 20 mg tablet RxNorm: 043497 1 Tablet(s) PO QHS 05/31/20 18 2017 Inactive True Metrix Glucose Test Strip RxNorm: 1 Test Strips [facility] 05/31/20 18 2017 Inactive 50/container Calcium 600-D3 Plus 600 mg calcium-800 unit-50 mg tablet RxNorm: 1 Tablet(s) PO daily take an additonal tablet for itching. 05/31/20 18 2017 Inactive hydrochlorothiazide 12.5 mg tablet RxNorm: 400680 1 Tablet(s) PO QAM 05/31/20 18 2017 Inactive Flintstones Complete (iron) 18 mg iron chewable tablet RxNorm: 1 Tablet(s) PO daily 05/31/20 18 2017 Inactive sertraline 50 mg tablet RxNorm: 584151 1 Tablet(s) PO daily 11/28/19 20 2019 Inactive d-mannose oral powder RxNorm: PO 18 2021 Inactive True Metrix Glucose Meter RxNorm: miscellaneous 08/17/20 19 2018 Inactive loperamide 2 mg tablet RxNorm: 560881 oral 09/29/20 19 2018 Inactive Symbicort 160 mcg-4.5 mcg/actuation HFA aerosol inhaler RxNorm: 3207143 2 Puff(s) INH BID 08/17/20 19 2018 Inactive Medication Administered No Medication Administered data Procedures Procedure Codes Date [place] Assessment CPT-4: DSWA 10/03 Hypertension CPT-4: HTN 10/17/2019 Fall Risk Assessment SNOMED CT: 83627099 4 CPT-4: DFRA 09/19/2019 Functional Assessment CPT-4: DFA 09/19/2019 Urinalysis, dip stick CPT-4: 05410 06/21/2019 Tobacco Assessment/Screening CPT-4: TCA Patient Health Questionnaire CPT-4: DPHQ AHA/REBECCA Classification Assessment CPT-4: DAHA 04/25/2019 Controlled Substance Report CPT-4: CTRSU 04/03 Urinalysis, dip stick CPT-4: 90564 03/28/2019 Urinalysis, dip stick CPT-4: 86491 03/28/2019 [id number]-Rvkklwzbdvhfcik CPT-4: 54069 Unknown [id number] CPT-4: 22219 Unknown Gynecology Referral SNOMED CT: 301954626 CPT-4: R14 Unknown Reason For Visit No Reason For Visit data Plan of Care Planned Activity Notes Codes Status Date Patient Education: Patient Medication Summary Completed 10/29/2019 Appointment: Anna Culver WPtel: [address] [place], [place] [id number] 10/17/2019 Appointment: Anna Culver WPtel: [address] [place] [address] E452 09/19/2019 Appointment: Sudha Hernadez WPtel: [address] [place] [address] [id number] 07/04/2019 Appointment: Sudha Hernadez WPtel: [facility] [id number] 06/21/2019 Appointment: Charlene Oropeza WPtel: [facility] [id number] 05/24/2019 Appointment: Mallory Delgado E4 04/27/2019 Appointment: Charlene Oropeza WPtel: [address] [facility] 202b [id number] 04/25/2019 Appointment: Rasta Palafox WPtel: [address] [facility] 202[address] [id number] 03/28/2019 Appointment: DaltonRasta elias WPtel: [address] [facility] b [id number] 02/14/2019 Appointment: DaltonziggysangRasta WPtel: [address] [facility] b [id number] 01/31/2019 Appointment: Rasta Palafox WPtel: [address] [facility] b [id number] 12/27/2018 Referral: Pending Gynecology Referral Information Referral Processed Referral: Pending Pulmonolog y Referral Information Referral Processed Referral: Pending Psychiatry Referral Information Referral Initiated Referral: Pending Respirator y Services Referral Information Referral Initiated Referral: Pending Ophthalmology Referral Information Referral Initiated Referral: [facility] WPtel: [address] [place] [address] Environmental Coordinator placed a call out to the patient to notify her that it has been recommended that she be seen by 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 Patient agreed to be seen, does not have a provider of choice and no transportation issues. Environmental Coordinator faxed referral and clinical notes to [facility] in [place], [place] near the patient's home. Patient to [...] seen and prefers a provider in the [place] or [facility]. Environmental Coordinator placed a call out to everyone listed in the area and the only location that was able to accept the patient's insurance was [facility] [address] [place] [address] and spoke with Maylin. Maylin asked that the patient's referral, face sheet and visit notes be faxed to . Environmental Coordinator faxed over requested documents. Patient appointment confirmation letter generated and mailed to her home address. Patient to call to schedule an appointment. Processed Referral: [facility] WPtel: [address] [place], [place] [id number] Patient notified that it has been advised that she be seen by Neurology. Patient agreed to be seen and prefers to be seen by a provider in the [place], [place] area. Patient denies any concerns with transportation, and prefers to schedule her own appointment. Environmental Coordinator placed a call out to [facility] and spoke with Neeraj P: who confirmed that their office is able to accept new patients and the patient's insurance. After confirming the providers fax number, telegraphic typewriter repairer faxed over the patient's referral, and most [...]
--- OUTSIDE RECORDS SUMMARY | 2023-12-07 02:08 | XMS_ITS | CCD ---
Author Name Leena Culver NP Address [address] [place] [address] [place] [id number] Phone Organization [employer] [facility] Phone Care Team Providers Care Rabbit Breeder Name Role Phone Anna Culver NP Primary Care Provider Unav ailable Unavailable Chronic Care Management Unavaila ble Summary Purpose DataExchange Insurance Providers Payer name Policy type / Coverage type Covered constitution party ID Effective Begin Date Effective End Date SUKI MAYO [id number] Unknown Unknown Family history Mother Diagnosis Age [...] Unknown Disability 05/31/[address]: 787662763 Has never s moked or chewed tobacco 05/31/[address]: 428521123 Never drinks alco hol 05/31/2018 Has the [...] ICD-10: Z12.4 ICD-9: V76.2 04/25/2019 Active Other longterm (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 ICD-10: Z79.899 ICD-9: [...] Headache ICD-10: R51 ICD-9: 784.0 10/03/2018 Active terminologist (current) use of non-steroidal anti-inflammatories (NSAID) ICD-10: Z79.1 ICD-9: V58.64 06/13/2018 Active Medications Medication Codes Instructions Start Date Stop Date Status Fill Instructions Sudafed 12 Hour 120 mg tablet,extended release RxNorm: 6801539 1 Tablet(s) Oral every 12 hours as needed 09/04/20 19 2018 Inactive pantoprazole 40 mg tablet,delayed release RxNorm: 289121 1 Tablet(s) Oral every day 08/24/202018 Inactive discontinue any other H2Blkr. and PPI Alcohol Prep Pads RxNorm: 061317 1 Patch TOP QAM 08/17/20 19 2019 Inactive albuterol sulfate 2.5 mg/3 mL (0.083 %) solution for nebulization RxNorm: 340650 1 Vial Inhalation every four hours as needed as needed for dyspnea 08/17/202019 Inactive 60/box. This refill negates all other refills of this medication. Please do not fill early. Please do not auto refill. Symbicort 160 mcg-4.5 mcg/actuation HFA aerosol inhaler RxNorm: 7399494 2 Puff(s) INH BID 08/17/20 19 No Stop Date Active True Metrix Glucose Test Strip RxNorm: 1 Test Strips Miscellaneous QAM 08/09/20 19 2019 Inactive 100/container Ventolin HFA 90 mcg/actuation aerosol inhaler RxNorm: 855136 2 Puff(s) INH QID 08/09/20 19 2019 Inactive Please do not fill early. Please do not auto refill. This refill negates all other refills of this medication atorvastatin 40 mg tablet RxNorm: 943798 1 Tablet(s) Oral every day 07/04/20 19 2019 Inactive hydrochlorothiazide 12.5 mg tablet RxNorm: 500448 1 Tablet(s) PO QAM 06/26/20 19 2019 Inactive levmetamfetamine 50 mg nasal inhaler RxNorm: 1 Unit(s) NASAL Q3-4H Do not use more than every 3 hours or 8 times/24hours 06/26/20 19 2021 Inactive Please do not auto refill. This refill negates all other refills of this medication Singulair 10 mg tablet RxNorm: 537954 1 Tablet(s) PO daily 06/26/20 19 2019 Inactive This refill negates all other refills of this medication cetirizine 10 mg tablet RxNorm: 5697534 1 Tablet(s) PO daily 06/26/20 19 2019 Inactive This refill negates all other refills of this medication. Please do not auto refill levothyroxine 50 mcg tablet RxNorm: 707756 1 Tablet(s) PO daily 06/26/20 19 2019 Inactive This refill negates all other refills of this medication diclofenac sodium 75 mg tablet,delayed release RxNorm: 156859 1 Tablet(s) PO BID 06/26/20 19 2019 Inactive This refill negates all other refills of this medication buspirone 7.5 mg tablet RxNorm: 297243 1 Tablet(s) PO BID 06/26/20 19 2020 Inactive This refill negates all other refills of this medication Calcium 600-D3 Plus (mag-zinc) 600 mg calcium-800 unit-50 mg tablet RxNorm: 1 Tablet(s) PO daily take an additonal tablet for itching. 06/26/20 19 2018 Inactive This refill negates all other refills of this medication Ventolin HFA 90 mcg/actuation aerosol inhaler RxNorm: 132748 2 Puff(s) INH QID 06/26/20 19 2018 Inactive Please do not fill early. Please do not auto refill. This refill negates all other refills of this medication ranitidine 150 mg tablet RxNorm: 955867 1 Tablet(s) PO BID 06/26/20 19 2018 Inactive This refill negates all other refills of this medication albuterol sulfate 2.5 mg/3 mL (0.083 %) solution for nebulization RxNorm: 965682 1 Vial INH QID 06/26/20 19 2018 Inactive 60/box. This refill negates all other refills of this medication. Please do not fill early. Please do not auto refill. lisinopril 2.5 mg tablet RxNorm: 614405 1 Tablet(s) PO daily 06/21/20 19 2019 Inactive gabapentin 300 mg capsule RxNorm: 057523 1 Capsule(s) PO TID 06/21/20 19 2019 Inactive atorvastatin 20 mg tablet RxNorm: 191187 1 Tablet(s) PO QHS 06/07/20 19 2018 Inactive This refill negates all other refills of this medication TRUEplus Lancets 30 gauge RxNorm: 1 Lancets Miscellaneous QAM 05/29/20 19 2018 Inactive 100/box gabapentin 300 mg capsule RxNorm: 970970 1 Capsule(s) PO TID 05/03/20 19 2018 Inactive Flintstones Complete (iron) 18 mg iron chewable tablet RxNorm: 1 Tablet(s) PO daily 04/04/20 19 2021 Inactive This refill negates all other refills of this medication gabapentin 300 mg capsule RxNorm: 355898 1 Capsule(s) PO TID as needed 02/01/20 19 2018 Inactive True Metrix Glucose Test Strip RxNorm: 1 Test Strips Miscellaneous QAM 02/01/20 19 2018 Inactive 100/container Alcohol Prep Pads RxNorm: 535272 1 Patch TOP QAM 02/01/20 19 2018 Inactive TRUEplus Lancets 30 gauge RxNorm: 1 Lancets Miscellaneous QAM 02/01/20 19 2018 Inactive 100/box lisinopril 2.5 mg tablet RxNorm: 900224 1 Tablet(s) PO daily 12/28/19 19 2018 Inactive ranitidine 150 mg tablet RxNorm: 574364 1 Tablet(s) PO BID 10/21/19 19 2018 Inactive This refill negates all other refills of this medication albuterol sulfate 2.5 mg/3 mL (0.083 %) solution for nebulization RxNorm: 944977 1 Vial INH QID 10/21/19 19 2018 [...] this medication gabapentin 300 mg capsule RxNorm: 354081 1 Capsule(s) PO TID as needed 10/21/19 19 2018 Inactive atorvastatin 20 mg tablet RxNorm: 553743 1 Tablet(s) PO QHS 10/21/19 19 2018 Inactive This refill negates all other refills of this medication trazodone 50 mg tablet RxNorm: 979181 1 Tablet(s) PO QHS 10/21/19 19 2018 Inactive This refill negates all other refills of this medication Ventolin HFA 90 mcg/actuation aerosol inhaler RxNorm: 155156 2 Puff(s) INH QID 10/21/19 19 2018 [...] this medication Singulair 10 mg tablet RxNorm: 269059 1 Tablet(s) PO daily 10/21/19 19 2018 Inactive This refill negates all other refills of this medication buspirone 7.5 mg tablet RxNorm: 324047 1 Tablet(s) PO BID 10/21/19 19 2018 Inactive This refill negates all other refills of this medication diclofenac sodium 75 mg tablet,delayed release RxNorm: 924876 1 Tablet(s) PO BID 10/21/19 19 2018 Inactive This refill negates all other refills of this medication hydrochlorothiazide 12.5 mg tablet RxNorm: 713585 1 Tablet(s) PO QAM 10/21/19 19 2018 Inactive metoprolol succinate ER 50 mg tablet,extended release 24 hr RxNorm: 230687 1 Tablet(s) PO daily 10/21/19 19 2018 Inactive This refill negates all other refills of this medication levothyroxine 50 mcg tablet RxNorm: 850093 1 Tablet(s) PO daily 10/21/19 19 2018 Inactive This refill negates all other refills of this medication cetirizine 10 mg tablet RxNorm: 7568016 1 Tablet(s) PO daily 10/21/192018 Inactive This refill negates all other refills of this medication. Please do not auto refill Flintstones Complete (iron) 18 mg iron chewable tablet RxNorm: 1 Tablet(s) PO daily 10/21/192018 Inactive This refill negates all other refills of this medication buspirone 7.5 mg tablet RxNorm: 712891 1 Tablet(s) PO BID 10/12/192018 Inactive cetirizine 10 mg tablet RxNorm: 8914829 1 Tablet(s) PO daily 09/28/20 18 2018 Inactive Guaiasorb DM 10 mg-100 mg/5 mL oral liquid RxNorm: 184591 10 Milliliter(s) PO As needed every 4 hr 09/24/20 2018 Inactive Vicks Vaporub 4.7 %-1.2 %-2.6 % topical ointment RxNorm: 0756428 1 Application TOP TID 09/24/20 18 2018 Inactive levmetamfetamine 50 mg nasal inhaler RxNorm: 1 Unit(s) NASAL Q3-4H 09/24/20 18 2017 Inactive sertraline 50 mg tablet RxNorm: 010733 1 Tablet(s) PO daily 09/09/20 18 2018 Inactive Please note dose trazodone 50 mg tablet RxNorm: 969911 1 Tablet(s) PO QHS 09/06/20 18 2018 Inactive sertraline 50 mg tablet RxNorm: 325861 1 Tablet(s) PO daily 09/06/20 18 2017 Inactive amoxicillin 500 mg tablet RxNorm: 826393 1 Tablet(s) PO Q12H 08/31/20 18 2017 Inactive albuterol sulfate 2.5 mg/3 mL (0.083 %) solution for nebulization RxNorm: 003607 1 Vial INH QID 08/10/20 18 2018 Inactive 60/box. Please do not fill early. Please do not auto refill. Prozac 10 mg capsule RxNorm: 848009 1 Capsule(s) PO daily 08/09/20 18 2017 Inactive buspirone 7.5 mg tablet RxNorm: 824137 1 Tablet(s) PO BID 08/09/20 18 2018 Inactive gabapentin 300 mg capsule RxNorm: 469803 1 Capsule(s) PO TID as needed 08/01/20 18 2018 Inactive hydrochlorothiazide 12.5 mg tablet RxNorm: 145253 1 Tablet(s) PO QAM 08/01/20 18 2018 Inactive ranitidine 150 mg tablet RxNorm: 682619 1 Tablet(s) PO BID 08/01/20 18 2018 Inactive Macrobid 100 mg capsule RxNorm: 618228 1 Capsule(s) PO Q12H 06/21/20 18 2017 Inactive Singulair 10 mg tablet RxNorm: 417124 1 Tablet(s) PO daily 06/14/20 18 2018 Inactive Ventolin HFA 90 mcg/actuation aerosol inhaler RxNorm: 9133526 2 Puff(s) INH QID 06/14/20 18 2018 Inactive Singulair 10 mg tablet RxNorm: 328082 1 Tablet(s) PO daily 06/14/20 18 2017 Inactive buspirone 7.5 mg tablet RxNorm: 621230 1 Tablet(s) PO BID 06/14/20 18 2017 Inactive Prozac 10 mg capsule RxNorm: 842102 1 Capsule(s) PO daily 06/14/20 18 2017 Inactive Neilmed Pediatric Sinus Rinse Refill packet RxNorm: 1 Unit Dose NASAL PRN 05/31/20 18 2021 Inactive diclofenac sodium 75 mg tablet,delayed release RxNorm: 111213 1 Tablet(s) PO BID 05/31/20 18 2017 Inactive lisinopril 2.5 mg tablet RxNorm: 380657 1 Tablet(s) PO daily 05/31/20 18 2017 Inactive metoprolol succinate ER 50 mg tablet,extended release 24 hr RxNorm: 393300 1 Tablet(s) PO daily 05/31/20 18 2017 Inactive levothyroxine 50 mcg tablet RxNorm: 075543 1 Tablet(s) PO daily 05/31/20 18 2017 Inactive TRUEplus Lancets 30 gauge RxNorm: 1 Lancets Miscellaneous QAM 05/31/20 18 2017 Inactive 100/box Ventolin HFA 90 mcg/actuation aerosol inhaler RxNorm: 723199 2 Puff(s) INH QID 05/31/20 18 2017 Inactive Aleve 220 mg capsule RxNorm: 3238844 1 Capsule(s) PO BID 05/31/20 18 2018 Inactive ranitidine 150 mg tablet RxNorm: 499844 1 Tablet(s) PO BID 05/31/20 18 2017 Inactive gabapentin 300 mg capsule RxNorm: 660632 1 Capsule(s) PO TID as needed 05/31/20 18 2017 Inactive atorvastatin 20 mg tablet RxNorm: 661941 1 Tablet(s) PO QHS 05/31/20 18 2017 Inactive True Metrix Glucose Test Strip RxNorm: 1 Test Strips Miscellaneous QA 05/31/20 18 2017 Inactive 50/container Calcium 600-D3 Plus 600 mg calcium-800 unit-50 mg tablet RxNorm: 1 Tablet(s) PO daily take an additonal tablet for itching. 05/31/20 18 2017 Inactive hydrochlorothiazide 12.5 mg tablet RxNorm: 570360 1 Tablet(s) PO QAM 05/31/20 18 2017 Inactive Flintstones Complete (iron) 18 mg iron chewable tablet RxNorm: 1 Tablet(s) PO daily 05/31/20 18 2017 Inactive sertraline 50 mg tablet RxNorm: 851359 1 Tablet(s) PO daily 11/28/19 20 2019 Inactive loperamide 2 mg tablet RxNorm: 801352 oral 09/29/20 19 2018 Inactive d-mannose oral powder RxNorm: PO 18 2021 Inactive True Metrix Glucose Meter RxNorm: miscellaneous 08/17/20 19 2018 Inactive Symbicort 160 mcg-4.5 mcg/actuation HFA aerosol inhaler RxNorm: 9786361 2 Puff(s) INH BID 08/17/20 19 2018 Inactive Medication Administered No Medication Administered data Procedures Procedure Codes Date Urinalysis, dip stick CPT-4: 53990 06/21/2019 Tobacco Assessment/Screening CPT-4: TCA Patient Health Questionnaire CPT-4: DPHQ AHA/REBECCA Classification Assessment CPT-4: DAHA 04/25/2019 Controlled Substance Report CPT-4: CTRSU 04/03 Urinalysis, dip stick CPT-4: 53492 03/28/2019 Urinalysis, dip stick CPT-4: 14189 03/28/2019 [id number] CPT-4: 78057 Unknown Gynecology Referral SNOMED CT: 565740111 CPT-4: R14 Unknown Reason For Visit No Reason For Visit data Plan of Care Planned Activity Notes Codes Status Date Patient Education: Patient Medication Summary Completed 09/04/2019 Appointment: Sudha Hernadez WPtel: [address] [place] [address] [id number] 07/04/2019 Appointment: Sudha Hernadez WPtel: [facility] [id number] 06/21/2019 Appointment: Charlene Oropeza WPtel: [address] [place] [address] [id number] 05/24/2019 Appointment: Mallory Delgado E452 04/27/2019 Appointment: Charlene Oropeza WPtel: [address] [place] [address] [id number] 04/25/2019 Appointment: Rasta Palafox WPtel: [address] [place] [address] [id number] 03/28/2019 Appointment: Rasta Palafox WPtel: [address] [place] [address] [id number] 02/14/2019 Appointment: Rasta Palafox WPtel: [address] [place] [address] [id number] 01/31/2019 Appointment: Rasta Palafox WPtel: [address] [place] [address] [id number] 12/27/2018 Referral: Pending Gynecology Referral Information Referral Processed Referral: Pending Pulmonolog y Referral Information Referral Processed Referral: Pending Psychiatry Referral Information Referral Initiated Referral: Pending Respirator y Services Referral Information Referral Initiated Referral: Pending Ophthalmology Referral Information Referral Initiated Referral: [facility] WPtel: [address] [place] First Breaker Feeder placed a call out to the patient to notify her that it has been recommended that she be seen by 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 Patient agreed to be seen, does not have a provider of choice and no transportation issues. First Breaker Feeder faxed referral and clinical notes to [facility] in [place], [place] near the patient's home. Patient to [...] seen and prefers a provider in the [place] or [place] area. First Breaker Feeder placed a call out to everyone listed in the area and the only location that was able to accept the patient's insurance was [address] [address] and spoke with Maylin. Maylin asked that the patient's referral, face sheet and visit notes be faxed to . First Breaker Feeder faxed over requested documents. Patient appointment confirmation letter generated and mailed to her home address. Patient to call to schedule an appointment. [facility]: [address] [place] [address] Patient notified that it has been advised that she be seen by Neurology. Patient agreed to be seen and prefers to be seen by a provider in the [place], [place] area. Patient denies any concerns with transportation, and prefers to schedule her own appointment. First Breaker Feeder placed a [facility] and spoke with Neeraj P: who confirmed that their office is able to accept new patients and the patient's insurance. After confirming the providers fax number, story writer faxed over the patient's referral, and [...]
--- OUTSIDE RECORDS SUMMARY | 2023-12-07 02:08 | XMS_ITS | CCD ---
Author Name Leena Culver NP Address [id number] [place] [address] [address] [place] [address] Phone Organization [facility] Phone Care Team Providers Care Mine Car Dispatcher Name Role Phone Anna Culver NP Primary Care Provider Unav ailable Unavailable Chronic Care Management Unavaila ble Summary Purpose DataExchange Insurance Providers Payer name Policy type / Coverage type Covered democrat ID Effective Begin Date Effective End Date SUKI MAYO [id number] Unknown Unknown Family history Mother Diagnosis Age [...] Unknown Disability 05/31/[address]: 596457673 Has never s moked or chewed tobacco 05/31/[address]: 477470134 Never drinks alco hol 05/31/2018 Has the [...] ICD-10: Z12.4 ICD-9: V76.2 04/25/2019 Active Other rigger chief (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 ICD-10: Z79.899 ICD-9: [...] Headache ICD-10: R51 ICD-9: 784.0 10/03/2018 Active 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 and PPI Alcohol Prep Pads RxNorm: 088053 1 Patch TOP QAM 08/17/20 19 2019 Inactive albuterol sulfate 2.5 mg/3 mL (0.083 %) solution for nebulization RxNorm: 537066 1 Vial Inhalation every four hours as needed as needed for dyspnea 08/17/202019 Inactive 60/box. This refill negates all other refills of this medication. Please do not fill early. Please do not auto refill. Symbicort 160 mcg-4.5 mcg/actuation HFA aerosol inhaler RxNorm: 4634213 2 Puff(s) INH BID 08/17/20 19 No Stop Date Active True Metrix Glucose Test Strip RxNorm: 1 Test Strips Miscellaneous QAM 08/09/20 19 2019 Inactive 100/container Ventolin HFA 90 mcg/actuation aerosol inhaler RxNorm: 621315 2 Puff(s) INH QID 08/09/20 19 2019 Inactive Please do not fill early. Please do not auto refill. This refill negates all other refills of this medication atorvastatin 40 mg tablet RxNorm: 443524 1 Tablet(s) Oral every day 07/04/20 19 2019 Inactive hydrochlorothiazide 12.5 mg tablet RxNorm: 919008 1 Tablet(s) PO QAM 06/26/20 19 2019 Inactive levmetamfetamine 50 mg nasal inhaler RxNorm: 1 Unit(s) NASAL Q3-4H Do not use more than every 3 hours or 8 times/24hours 06/26/20 19 2021 Inactive Please do not auto refill. This refill negates all other refills of this medication Singulair 10 mg tablet RxNorm: 358935 1 Tablet(s) PO daily 06/26/20 19 2019 Inactive This refill negates all other refills of this medication cetirizine 10 mg tablet RxNorm: 2665514 1 Tablet(s) PO daily 06/26/20 19 2019 Inactive This refill negates all other refills of this medication. Please do not auto refill levothyroxine 50 mcg tablet RxNorm: 717821 1 Tablet(s) PO daily 06/26/20 19 2019 Inactive This refill negates all other refills of this medication diclofenac sodium 75 mg tablet,delayed release RxNorm: 247202 1 Tablet(s) PO BID 06/26/20 19 2019 Inactive This refill negates all other refills of this medication buspirone 7.5 mg tablet RxNorm: 584158 1 Tablet(s) PO BID 06/26/20 19 2020 Inactive This refill negates all other refills of this medication Calcium 600-D3 Plus (mag-zinc) 600 mg calcium-800 unit-50 mg tablet RxNorm: 1 Tablet(s) PO daily take an additonal tablet for itching. 06/26/20 19 2018 Inactive This refill negates all other refills of this medication Ventolin HFA 90 mcg/actuation aerosol inhaler RxNorm: 472538 2 Puff(s) INH QID 06/26/20 19 2018 Inactive Please do not fill early. Please do not auto refill. This refill negates all other refills of this medication ranitidine 150 mg tablet RxNorm: 979968 1 Tablet(s) PO BID 06/26/20 19 2018 Inactive This refill negates all other refills of this medication albuterol sulfate 2.5 mg/3 mL (0.083 %) solution for nebulization RxNorm: 416943 1 Vial INH QID 06/26/20 19 2018 Inactive 60/box. This refill negates all other refills of this medication. Please do not fill early. Please do not auto refill. lisinopril 2.5 mg tablet RxNorm: 280485 1 Tablet(s) PO daily 06/21/20 19 2019 Inactive gabapentin 300 mg capsule RxNorm: 847549 1 Capsule(s) PO TID 06/21/20 19 2019 Inactive atorvastatin 20 mg tablet RxNorm: 500308 1 Tablet(s) PO QHS 06/07/20 19 2018 Inactive This refill negates all other refills of this medication TRUEplus Lancets 30 gauge RxNorm: 1 Lancets Miscellaneous QAM 05/29/20 19 2018 Inactive 100/box gabapentin 300 mg capsule RxNorm: 262442 1 Capsule(s) PO TID 05/03/20 19 2018 Inactive Flintstones Complete (iron) 18 mg iron chewable tablet RxNorm: 1 Tablet(s) PO daily 04/04/20 19 2021 Inactive This refill negates all other refills of this medication gabapentin 300 mg capsule RxNorm: 312535 1 Capsule(s) PO TID as needed 02/01/20 19 2018 Inactive True Metrix Glucose Test Strip RxNorm: 1 Test Strips Miscellaneous QAM 02/01/20 19 2018 Inactive 100/container Alcohol Prep Pads RxNorm: 671645 1 Patch TOP QAM 02/01/20 19 2018 Inactive TRUEplus Lancets 30 gauge RxNorm: 1 Lancets Miscellaneous QAM 02/01/20 19 2018 Inactive 100/box lisinopril 2.5 mg tablet RxNorm: 796772 1 Tablet(s) PO daily 12/28/19 19 2018 Inactive ranitidine 150 mg tablet RxNorm: 864946 1 Tablet(s) PO BID 10/21/192018 Inactive This refill negates all other refills of this medication albuterol sulfate 2.5 mg/3 mL (0.083 %) solution for nebulization RxNorm: 253545 1 Vial INH QID 10/21/19 19 2018 [...] this medication gabapentin 300 mg capsule RxNorm: 203396 1 Capsule(s) PO TID as needed 10/21/19 19 2018 Inactive atorvastatin 20 mg tablet RxNorm: 829254 1 Tablet(s) PO QHS 10/21/19 19 2018 Inactive This refill negates all other refills of this medication trazodone 50 mg tablet RxNorm: 003558 1 Tablet(s) PO QHS 10/21/19 19 2018 Inactive This refill negates all other refills of this medication Ventolin HFA 90 mcg/actuation aerosol inhaler RxNorm: 563729 2 Puff(s) INH QID 012018 Inactive Please do not fill early. Please do not auto refill. This refill negates all other refills of this medication Calcium 600-D3 Plus 600 mg calcium-800 unit-50 mg tablet RxNorm: 1 Tablet(s) PO daily take an additonal tablet for itching. 10/21/192018 Inactive This refill negates all other refills of this medication Singulair 10 mg tablet RxNorm: 441883 1 Tablet(s) PO daily 10/21/192018 Inactive This refill negates all other refills of this medication buspirone 7.5 mg tablet RxNorm: 051992 1 Tablet(s) PO BID 10/21/192018 Inactive This refill negates all other refills of this medication diclofenac sodium 75 mg tablet,delayed release RxNorm: 653111 1 Tablet(s) PO BID 10/21/192018 Inactive This refill negates all other refills of this medication hydrochlorothiazide 12.5 mg tablet RxNorm: 603349 1 Tablet(s) PO QAM 10/21/192018 Inactive metoprolol succinate ER 50 mg tablet,extended release 24 hr RxNorm: 822459 1 Tablet(s) PO daily 10/21/192018 Inactive This refill negates all other refills of this medication levothyroxine 50 mcg tablet RxNorm: 423731 1 Tablet(s) PO daily 10/21/192018 Inactive This refill negates all other refills of this medication cetirizine 10 mg tablet RxNorm: 1444304 1 Tablet(s) PO daily 10/21/192018 Inactive This refill negates all other refills of this medication. Please do not auto refill Flintstones Complete (iron) 18 mg iron chewable tablet RxNorm: 1 Tablet(s) PO daily 10/21/192018 Inactive This refill negates all other refills of this medication buspirone 7.5 mg tablet RxNorm: 652730 1 Tablet(s) PO BID 10/12/192018 Inactive cetirizine 10 mg tablet RxNorm: 4304820 1 Tablet(s) PO daily 09/28/20 18 2018 Inactive Guaiasorb DM 10 mg-100 mg/5 mL oral liquid RxNorm: 464710 10 Milliliter(s) PO As needed every 4 hr 09/24/20 18 2018 Inactive Vicks Vaporub 4.7 %-1.2 %-2.6 % topical ointment RxNorm: 5783509 1 Application TOP TID 09/24/20 18 2018 Inactive levmetamfetamine 50 mg nasal inhaler RxNorm: 1 Unit(s) NASAL Q3-4H 09/24/20 18 2017 Inactive sertraline 50 mg tablet RxNorm: 525095 1 Tablet(s) PO daily 09/09/20 18 2018 Inactive Please note dose trazodone 50 mg tablet RxNorm: 991681 1 Tablet(s) PO QHS 09/06/20 18 2018 Inactive sertraline 50 mg tablet RxNorm: 980633 1 Tablet(s) PO daily 09/06/20 18 2017 Inactive amoxicillin 500 mg tablet RxNorm: 622978 1 Tablet(s) PO Q12H 08/31/20 18 2017 Inactive albuterol sulfate 2.5 mg/3 mL (0.083 %) solution for nebulization RxNorm: 069113 1 Vial INH QID 08/10/20 18 2018 Inactive 60/box. Please do not fill early. Please do not auto refill. Prozac 10 mg capsule RxNorm: 054332 1 Capsule(s) PO daily 08/09/20 18 2017 Inactive buspirone 7.5 mg tablet RxNorm: 825465 1 Tablet(s) PO BID 08/09/20 18 2018 Inactive gabapentin 300 mg capsule RxNorm: 842951 1 Capsule(s) PO TID as needed 08/01/20 18 2018 Inactive hydrochlorothiazide 12.5 mg tablet RxNorm: 956301 1 Tablet(s) PO QAM 08/01/20 18 2018 Inactive ranitidine 150 mg tablet RxNorm: 104571 1 Tablet(s) PO BID 08/01/20 18 2018 Inactive Macrobid 100 mg capsule RxNorm: 376306 1 Capsule(s) PO Q12H 06/21/20 18 2017 Inactive Singulair 10 mg tablet RxNorm: 953023 1 Tablet(s) PO daily 06/14/20 18 2018 Inactive Ventolin HFA 90 mcg/actuation aerosol inhaler RxNorm: 4391708 2 Puff(s) INH QID 06/14/20 18 2018 Inactive Singulair 10 mg tablet RxNorm: 188330 1 Tablet(s) PO daily 06/14/20 18 2017 Inactive buspirone 7.5 mg tablet RxNorm: 547965 1 Tablet(s) PO BID 06/14/20 18 2017 Inactive Prozac 10 mg capsule RxNorm: 182442 1 Capsule(s) PO daily 06/14/20 18 2017 Inactive Neilmed Pediatric Sinus Rinse Refill packet RxNorm: 1 Unit Dose NASAL PRN 05/31/20 18 2021 Inactive diclofenac sodium 75 mg tablet,delayed release RxNorm: 661098 1 Tablet(s) PO BID 05/31/20 18 2017 Inactive lisinopril 2.5 mg tablet RxNorm: 194660 1 Tablet(s) PO daily 05/31/20 18 2017 Inactive metoprolol succinate ER 50 mg tablet,extended release 24 hr RxNorm: 183244 1 Tablet(s) PO daily 05/31/20 18 2017 Inactive levothyroxine 50 mcg tablet RxNorm: 130600 1 Tablet(s) PO daily 05/31/20 18 2017 Inactive TRUEplus Lancets 30 gauge RxNorm: 1 Lancets Miscellaneous QAM 05/31/20 18 2017 Inactive 100/box Ventolin HFA 90 mcg/actuation aerosol inhaler RxNorm: 644352 2 Puff(s) INH QID 05/31/20 18 2017 Inactive Aleve 220 mg capsule RxNorm: 9076928 1 Capsule(s) PO BID 05/31/20 18 2018 Inactive ranitidine 150 mg tablet RxNorm: 510455 1 Tablet(s) PO BID 05/31/20 18 2017 Inactive gabapentin 300 mg capsule RxNorm: 784013 1 Capsule(s) PO TID as needed 05/31/20 18 2017 Inactive atorvastatin 20 mg tablet RxNorm: 423759 1 Tablet(s) PO QHS 05/31/20 18 2017 Inactive True Metrix Glucose Test Strip RxNorm: 1 Test Strips Miscellaneous [facility] 05/31/20 18 2017 Inactive 50/container Calcium 600-D3 Plus 600 mg calcium-800 unit-50 mg tablet RxNorm: 1 Tablet(s) PO daily take an additonal tablet for itching. 05/31/20 18 2017 Inactive hydrochlorothiazide 12.5 mg tablet RxNorm: 996825 1 Tablet(s) PO QAM 05/31/20 18 2017 Inactive Flintstones Complete (iron) 18 mg iron chewable tablet RxNorm: 1 Tablet(s) PO daily 05/31/20 18 2017 Inactive sertraline 50 mg tablet RxNorm: 041917 1 Tablet(s) PO daily 11/28/19 20 2019 Inactive loperamide 2 mg tablet RxNorm: 792658 oral 09/29/20 19 2018 Inactive d-mannose oral powder RxNorm: PO 18 2021 Inactive True Metrix Glucose Meter RxNorm: miscellaneous 08/17/20 19 2018 Inactive Symbicort 160 mcg-4.5 mcg/actuation HFA aerosol inhaler RxNorm: 2116074 2 Puff(s) INH BID 08/17/20 19 2018 Inactive Medication Administered No Medication Administered data Procedures Procedure Codes Date Urinalysis, dip stick CPT-4: 13448 06/21/2019 Tobacco Assessment/Screening CPT-4: TCA Patient Health Questionnaire CPT-4: DPHQ AHA/REBECCA Classification Assessment CPT-4: DAHA 04/25/2019 Controlled Substance Report CPT-4: CTRSU 04/03 Urinalysis, dip stick CPT-4: 73572 03/28/2019 Urinalysis, dip stick CPT-4: 87633 03/28/2019 [id number] CPT-4: 71506 Unknown Gynecology Referral SNOMED CT: [id number] CPT-4: R14 Unknown Reason For Visit No Reason For Visit data Plan of Care Planned Activity Notes Codes Status Date Patient Education: Patient Medication Summary Completed 09/07/2019 Appointment: Sudha Hernadez WPtel: [address] [place] [address] [id number] [facility] [place] 07/04/2019 Appointment: Sudha Hernadez WPtel: [address] [place] [address] [id number] [place] 06/21/2019 Appointment: Charlene Oropeza WPtel: [address] [place] [address] [id number] [facility] [place] 05/24/2019 Appointment: Mallory Delgado [facility] 04/27/2019 Appointment: Charlene Oropeza WPtel: [address] [place] [address] [id number] [facility] [place] 04/25/2019 Appointment: Rasta Palafox WPtel: [facility] [id number] [facility] [place] 03/28/2019 Appointment: Rasta Palafox WPtel: [address] [place] [address] [id number] [facility] [place] 02/14/2019 Appointment: Rasta Palafox WPtel: [address] [place] [address] [id number] 01/31/2019 Appointment: Rasta Palafox WPtel: [address] [place] [address] [id number] 12/27/2018 Referral: Pending Gynecology Referral Information Referral Processed Referral: Pending Pulmonolog y Referral Information Referral Processed Referral: Pending Psychiatry Referral Information Referral Initiated Referral: Pending Respirator y Services Referral Information Referral Initiated Referral: Pending Ophthalmology Referral Information Referral Initiated Referral: [facility] WPtel: [address] [facility] [address] Yarder Engineer placed a call out to the patient to notify her that it has been recommended that she be seen by 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 Patient agreed to be seen, does not have a provider of choice and no transportation issues. Yarder Engineer faxed referral and clinical notes to [facility] in [place], [place] near the patient's home. Patient to [...] seen and prefers a provider in the [place] or [place] area. Yarder Engineer placed a call out to everyone listed in the area and the only location that was able to accept the patient's insurance was [address] [address] and spoke with Maylin. Maylin asked that the patient's referral, face sheet and visit notes be faxed to . Yarder Engineer faxed over requested documents. Patient appointment confirmation letter generated and mailed to her home address. Patient to call to schedule an appointment. Processed [facility] W[facility]: [address] [facility] [address] [place] [address] [place] Patient notified that it has been advised that she be seen by Neurology. Patient agreed to be seen and prefers to be seen by a provider in the [place], [place] area. Patient denies any concerns with transportation, and prefers to schedule her own appointment. Yarder Engineer placed a call out to [facility] and spoke with Neeraj Mcfarland: who confirmed that their office is able to accept new patients and the patient's insurance. After confirming the providers fax number, mortgage underwriter faxed over the patient's referral, [...]
--- OUTSIDE RECORDS SUMMARY | 2023-12-07 02:08 | XMS_ITS | CCD ---
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 Coverage Specialist Rn Name Role Phone Palomo KING, Anna Primary Care Provider Unav ailable Unavailable Chronic Care Management Unavaila ble Summary Purpose DataExchange Insurance Providers Payer name Policy type / Coverage type Covered republican ID Effective Begin Date Effective End Date SUKI MAYO [id number] Unknown Unknown Family history Mother Diagnosis Age [...] Unknown Disability 05/31/[address]: 794999325 Has never s moked or chewed tobacco 05/31/[address]: 694750003 Never drinks alco hol 05/31/2018 Has the [...] ICD-10: Z12.4 ICD-9: V76.2 04/25/2019 Active 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 Please do not auto refill Singulair 10 mg tablet RxNorm: 283219 1 Tablet(s) PO daily 10/20/192019 Inactive This refill negates all other refills of this medication gabapentin 300 mg capsule RxNorm: 366681 1 Capsule(s) PO TID 10/20/19 20 2019 Inactive lisinopril 2.5 mg tablet RxNorm: 903392 1 Tablet(s) PO daily 10/20/19 20 2019 Inactive levothyroxine 50 mcg tablet RxNorm: 845267 1 Tablet(s) PO daily 10/20/19 20 2019 Inactive This refill negates all other refills of this medication hydrochlorothiazide 25 mg tablet RxNorm: 961594 1 Tablet(s) Oral every day 10/17/192019 Inactive fenugreek seed extract 500 mg capsule RxNorm: 1 Capsule(s) Oral three times a day 10/17/19 20 2021 Inactive Alcohol Prep Pads RxNorm: 906887 1 Patch TOP QAM 10/16/19 20 2020 Inactive loperamide 2 mg tablet RxNorm: 696662 1 Tablet(s) Oral as needed take one [...] 2019 Inactive hydrochlorothiazide 25 mg tablet RxNorm: 268221 1 Tablet(s) Oral every day 09/19/20 19 2019 Inactive Sudafed 12 Hour 120 mg tablet,extended release RxNorm: 1526217 1 Tablet(s) Oral every 12 hours as needed 09/11/20 19 2018 Inactive omeprazole 20 mg capsule,delayed release RxNorm: 720910 1 Capsule(s) Oral every day 09/07/20 19 2019 Inactive Sudafed 12 Hour 120 mg tablet,extended release RxNorm: 2221926 1 Tablet(s) Oral every 12 hours as needed 09/04/20 19 2018 Inactive pantoprazole 40 mg tablet,delayed release RxNorm: 694844 1 Tablet(s) Oral every day 08/24/20 19 2018 Inactive discontinue any other H2Blkr. and PPI albuterol sulfate 2.5 mg/3 mL (0.083 %) solution for nebulization RxNorm: 609911 1 Vial Inhalation every four hours as needed as needed for dyspnea 08/17/20 19 2019 Inactive 60/box. This refill negates all other refills of this medication. Please do not fill early. Please do not auto refill. Symbicort 160 mcg-4.5 mcg/actuation HFA aerosol inhaler RxNorm: 8056620 2 Puff(s) INH BID 08/17/20 19 No Stop Date Active Alcohol Prep Pads RxNorm: 494838 1 Patch TOP QAM 08/17/20 19 2019 Inactive True Metrix Glucose Test Strip RxNorm: 1 Test Strips Miscellaneous QAM 08/09/20 19 2019 Inactive 100/container Ventolin HFA 90 mcg/actuation aerosol inhaler RxNorm: 086248 2 Puff(s) INH QID 08/09/20 19 2019 Inactive Please do not fill early. Please do not auto refill. This refill negates all other refills of this medication atorvastatin 40 mg tablet RxNorm: 839416 1 Tablet(s) Oral every day 07/04/20 19 2019 Inactive levmetamfetamine 50 mg nasal inhaler RxNorm: 1 Unit(s) NASAL Q3-4H Do not use more than every 3 hours or 8 times/24hours 06/26/20 19 2021 Inactive Please do not auto refill. This refill negates all other refills of this medication diclofenac sodium 75 mg tablet,delayed release RxNorm: 375370 1 Tablet(s) PO BID 06/26/20 19 2019 Inactive This refill negates all other refills of this medication buspirone 7.5 mg tablet RxNorm: 609257 1 Tablet(s) PO BID 06/26/20 19 2020 Inactive This refill negates all other refills of this medication hydrochlorothiazide 12.5 mg tablet RxNorm: 826467 1 Tablet(s) PO QAM 06/26/20 19 2019 Inactive Ventolin HFA 90 mcg/actuation aerosol inhaler RxNorm: 766246 2 Puff(s) INH QID 06/26/20 19 2018 Inactive Please do not fill early. Please do not auto refill. This refill negates all other refills of this medication Singulair 10 mg tablet RxNorm: 537987 1 Tablet(s) PO daily 06/26/20 19 2019 Inactive This refill negates all other refills of this medication cetirizine 10 mg tablet RxNorm: 3577555 1 Tablet(s) PO daily 06/26/20 19 2019 Inactive This refill negates all other refills of this medication. Please do not auto refill levothyroxine 50 mcg tablet RxNorm: 775738 1 Tablet(s) PO daily 06/26/20 19 2019 Inactive This refill negates all other refills of this medication ranitidine 150 mg tablet RxNorm: 323233 1 Tablet(s) PO BID 06/26/20 19 2018 Inactive This refill negates all other refills of this medication Calcium 600-D3 Plus (mag-zinc) 600 mg calcium-800 unit-50 mg tablet RxNorm: 1 Tablet(s) PO daily take an additonal tablet for itching. 06/26/20 19 2018 Inactive This refill negates all other refills of this medication albuterol sulfate 2.5 mg/3 mL (0.083 %) solution for nebulization RxNorm: 974230 1 Vial INH QID 06/26/20 19 2018 Inactive 60/box. This refill negates all other refills of this medication. Please do not fill early. Please do not auto refill. lisinopril 2.5 mg tablet RxNorm: 181397 1 Tablet(s) PO daily 06/21/20 19 2019 Inactive gabapentin 300 mg capsule RxNorm: 830387 1 Capsule(s) PO TID 06/21/20 19 2019 Inactive atorvastatin 20 mg tablet RxNorm: 805372 1 Tablet(s) PO QHS 06/07/20 19 2018 Inactive This refill negates all other refills of this medication TRUEplus Lancets 30 gauge RxNorm: 1 Lancets Miscellaneous QAM 05/29/20 19 2018 Inactive 100/box gabapentin 300 mg capsule RxNorm: 297953 1 Capsule(s) PO TID 05/03/20 19 2018 Inactive Flintstones Complete (iron) 18 mg iron chewable tablet RxNorm: 1 Tablet(s) PO daily 04/04/202021 Inactive This refill negates all other refills of this medication gabapentin 300 mg capsule RxNorm: 539042 1 Capsule(s) PO TID as needed 02/01/20 19 2018 Inactive True Metrix Glucose Test Strip RxNorm: 1 Test Strips Miscellaneous QAM 02/01/20 19 2018 Inactive 100/container Alcohol Prep Pads RxNorm: 005208 1 Patch TOP QAM 02/01/20 19 2018 Inactive TRUEplus Lancets 30 gauge RxNorm: 1 Lancets Miscellaneous QAM 02/01/20 19 2018 Inactive 100/box lisinopril 2.5 mg tablet RxNorm: 664656 1 Tablet(s) PO daily 12/28/19 19 2018 Inactive ranitidine 150 mg tablet RxNorm: 899001 1 Tablet(s) PO BID 10/21/192018 Inactive This refill negates all other refills of this medication albuterol sulfate 2.5 mg/3 mL (0.083 %) solution for nebulization RxNorm: 463551 1 Vial INH QID 10/21/19 19 2018 [...] this medication gabapentin 300 mg capsule RxNorm: 060673 1 Capsule(s) PO TID as needed 10/21/192018 Inactive atorvastatin 20 mg tablet RxNorm: 062886 1 Tablet(s) PO QHS 10/21/19 19 2018 Inactive This refill negates all other refills of this medication trazodone 50 mg tablet RxNorm: 212366 1 Tablet(s) PO QHS 10/21/19 19 2018 Inactive This refill negates all other refills of this medication Ventolin HFA 90 mcg/actuation aerosol inhaler RxNorm: 086656 2 Puff(s) INH QID 10/21/19 19 2018 [...] this medication Singulair 10 mg tablet RxNorm: 581404 1 Tablet(s) PO daily 10/21/19 19 2018 Inactive This refill negates all other refills of this medication buspirone 7.5 mg tablet RxNorm: 406934 1 Tablet(s) PO BID 10/21/192018 Inactive This refill negates all other refills of this medication diclofenac sodium 75 mg tablet,delayed release RxNorm: 492306 1 Tablet(s) PO BID 10/21/19 19 2018 Inactive This refill negates all other refills of this medication hydrochlorothiazide 12.5 mg tablet RxNorm: 980031 1 Tablet(s) PO QAM 10/21/192018 Inactive metoprolol succinate ER 50 mg tablet,extended release 24 hr RxNorm: 109529 1 Tablet(s) PO daily 10/21/192018 Inactive This refill negates all other refills of this medication levothyroxine 50 mcg tablet RxNorm: 431832 1 Tablet(s) PO daily 10/21/192018 Inactive This refill negates all other refills of this medication cetirizine 10 mg tablet RxNorm: 3640840 1 Tablet(s) PO daily 10/21/192018 Inactive This refill negates all other refills of this medication. Please do not auto refill Flintstones Complete (iron) 18 mg iron chewable tablet RxNorm: 1 Tablet(s) PO daily 10/21/192018 Inactive This refill negates all other refills of this medication buspirone 7.5 mg tablet RxNorm: 921340 1 Tablet(s) PO BID 10/12/19 19 2018 Inactive cetirizine 10 mg tablet RxNorm: 5207403 1 Tablet(s) PO daily 09/28/20 18 2018 Inactive Guaiasorb DM 10 mg-100 mg/5 mL oral liquid RxNorm: 239870 10 Milliliter(s) PO As needed every 4 hr 09/24/20 18 2018 Inactive Vicks Vaporub 4.7 %-1.2 %-2.6 % topical ointment RxNorm: 1012355 1 Application TOP TID 09/24/20 18 2018 Inactive levmetamfetamine 50 mg nasal inhaler RxNorm: 1 Unit(s) NASAL Q3-4H 09/24/20 18 2017 Inactive sertraline 50 mg tablet RxNorm: 400865 1 Tablet(s) PO daily 09/09/20 18 2018 Inactive Please note dose trazodone 50 mg tablet RxNorm: 209101 1 Tablet(s) PO QHS 09/06/20 18 2018 Inactive sertraline 50 mg tablet RxNorm: 979174 1 Tablet(s) PO daily 09/06/20 18 2017 Inactive amoxicillin 500 mg tablet RxNorm: 764372 1 Tablet(s) PO Q12H 08/31/20 18 2017 Inactive albuterol sulfate 2.5 mg/3 mL (0.083 %) solution for nebulization RxNorm: 201044 1 Vial INH QID 08/10/20 18 2018 Inactive 60/box. Please do not fill early. Please do not auto refill. Prozac 10 mg capsule RxNorm: 143559 1 Capsule(s) PO daily 08/09/20 18 2017 Inactive buspirone 7.5 mg tablet RxNorm: 327885 1 Tablet(s) PO BID 08/09/20 18 2018 Inactive gabapentin 300 mg capsule RxNorm: 744326 1 Capsule(s) PO TID as needed 08/01/20 18 2018 Inactive hydrochlorothiazide 12.5 mg tablet RxNorm: 502411 1 Tablet(s) PO QAM 08/01/20 18 2018 Inactive ranitidine 150 mg tablet RxNorm: 139590 1 Tablet(s) PO BID 08/01/20 18 2018 Inactive Macrobid 100 mg capsule RxNorm: 006533 1 Capsule(s) PO Q12H 06/21/20 18 2017 Inactive Singulair 10 mg tablet RxNorm: 316948 1 Tablet(s) PO daily 06/14/20 18 2018 Inactive Ventolin HFA 90 mcg/actuation aerosol inhaler RxNorm: 7518267 2 Puff(s) INH QID 06/14/20 18 2018 Inactive Singulair 10 mg tablet RxNorm: 722890 1 Tablet(s) PO daily 06/14/20 18 2017 Inactive buspirone 7.5 mg tablet RxNorm: 113639 1 Tablet(s) PO BID 06/14/20 18 2017 Inactive Prozac 10 mg capsule RxNorm: 325675 1 Capsule(s) PO daily 06/14/20 18 2017 Inactive Neilmed Pediatric Sinus Rinse Refill packet RxNorm: 1 Unit Dose NASAL PRN 05/31/20 18 2021 Inactive diclofenac sodium 75 mg tablet,delayed release RxNorm: 935699 1 Tablet(s) PO BID 05/31/20 18 2017 Inactive lisinopril 2.5 mg tablet RxNorm: 714837 1 Tablet(s) PO daily 05/31/20 18 2017 Inactive metoprolol succinate ER 50 mg tablet,extended release 24 hr RxNorm: 034710 1 Tablet(s) PO daily 05/31/20 18 2017 Inactive levothyroxine 50 mcg tablet RxNorm: 181229 1 Tablet(s) PO daily 05/31/20 18 2017 Inactive TRUEplus Lancets 30 gauge RxNorm: 1 Lancets Miscellaneous QAM 05/31/20 18 2017 Inactive 100/box Ventolin HFA 90 mcg/actuation aerosol inhaler RxNorm: 412554 2 Puff(s) INH QID 05/31/20 18 2017 Inactive Aleve 220 mg capsule RxNorm: 9841193 1 Capsule(s) PO BID 05/31/20 18 2018 Inactive ranitidine 150 mg tablet RxNorm: 520720 1 Tablet(s) PO BID 05/31/20 18 2017 Inactive gabapentin 300 mg capsule RxNorm: 036423 1 Capsule(s) PO TID as needed 05/31/20 18 2017 Inactive atorvastatin 20 mg tablet RxNorm: 728113 1 Tablet(s) PO QHS 05/31/20 18 2017 Inactive True Metrix Glucose Test Strip RxNorm: 1 Test Strips Miscellaneous QAM 05/31/20 18 2017 Inactive 50/container Calcium 600-D3 Plus 600 mg calcium-800 unit-50 mg tablet RxNorm: 1 Tablet(s) PO daily take an additonal tablet for itching. 05/31/20 18 2017 Inactive hydrochlorothiazide 12.5 mg tablet RxNorm: 481932 1 Tablet(s) PO QAM 05/31/20 18 2017 Inactive Flintstones Complete (iron) 18 mg iron chewable tablet RxNorm: 1 Tablet(s) PO daily 05/31/20 18 2017 Inactive sertraline 50 mg tablet RxNorm: 510900 1 Tablet(s) PO daily 11/28/19 20 2019 Inactive d-mannose oral powder RxNorm: PO 18 2021 Inactive True Metrix Glucose Meter RxNorm: miscellaneous 08/17/20 19 2018 Inactive loperamide 2 mg tablet RxNorm: 475020 oral 09/29/20 19 2018 Inactive Symbicort 160 mcg-4.5 mcg/actuation HFA aerosol inhaler RxNorm: 9519857 2 Puff(s) INH BID 08/17/202018 Inactive Medication Administered No Medication Administered data Procedures Procedure Codes Date Call Fany Assessment CPT-4: DSWA 10/03 Hypertension CPT-4: HTN 10/17/2019 Fall Risk Assessment SNOMED CT: 78458639 4 CPT-4: DFRA 09/19/2019 Functional Assessment CPT-4: DFA 09/19/2019 Urinalysis, dip stick CPT-4: 59288 06/21/2019 Tobacco Assessment/Screening CPT-4: TCA Patient Health Questionnaire CPT-4: DPHQ AHA/REBECCA Classification Assessment CPT-4: DAHA 04/25/2019 Controlled Substance Report CPT-4: CTRSU 04/03 Urinalysis, dip stick CPT-4: 16569 03/28/2019 Urinalysis, dip stick CPT-4: 44350 03/28/2019 [id number] CPT-4: 54020 Unknown [id number] CPT-4: 57719 Unknown Gynecology Referral SNOMED CT: 444181298 CPT-4: R14 Unknown Reason For Visit No Reason For Visit data Plan of Care Planned Activity Notes Codes Status Date Referral: Pending Gynecology Referral Information Referral Processed Referral: Pending Pulmonolog y Referral Information Referral Processed Referral: Pending Psychiatry Referral Information Referral Initiated Referral: Pending Respirator y Services Referral Information Referral Initiated Referral: Pending Ophthalmol ogy Referral Information Referral Initiated Referral: [facility] WPtel: [address] [place] [address] Weights And Measures Inspector placed a call out to the patient to notify her that it has been recommended that she be seen by 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 Patient agreed to be seen, does not have a provider of choice and no transportation issues. Weights And Measures Inspector faxed referral and clinical notes to [facility] in [place], [place] near the patient's home. Patient to [...] seen and prefers a provider in the [place] area. Weights And Measures Inspector placed a call out to everyone listed in the area and the only location that was able to accept the patient's insurance was [facility] [address] [place] [address] and spoke with Maylin. Maylin asked that the patient's referral, face sheet and visit notes be faxed to . Weights And Measures Inspector faxed over requested documents. Patient appointment confirmation letter generated and mailed to her home address. Patient to call to schedule an appointment. Processed Referral: Kathryn [facility] y WPtel: [address] [place] [address] [place], [place] [id number] Patient notified that it has been advised that she be seen by Neurology. Patient agreed to be seen and prefers to be seen by a provider in the [place], [place] area. Patient denies any concerns with transportation, and prefers to schedule her own appointment. Weights And Measures Inspector placed a call out to [address] [...]
--- OUTSIDE RECORDS SUMMARY | 2023-12-07 02:09 | XMS_ITS | CCD ---
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 Chief Business Development Officer Name Role Phone Palomo KING, Anna Primary Care Provider Unav ailable Unavailable Chronic Care Management Unavaila ble Summary Purpose DataExchange Insurance Providers Payer name Policy type / Coverage type Covered democrat ID Effective Begin Date Effective End Date SUKI BUTTS MARIA ESTHER [id number] Unknown Unknown Family history Mother Diagnosis Age [...] Unknown Disability 05/31/[address]: 131059974 Has never s moked or chewed tobacco 05/31/[address]: 787893339 Never drinks alco hol 05/31/2018 Has the [...] ICD-10: Z12.4 ICD-9: V76.2 04/25/2019 Active Other buttermaker continuous churn (current) dr edith therapy ICD-10: Z79.899 ICD-9: V58.69 04/25/2019 Active [...] Headache ICD-10: R51 ICD-9: 784.0 10/03/2018 Active longterm (current) use of non-steroidal anti-inflammatories (NSAID) ICD-10: Z79.1 ICD-9: V58.64 06/13/2018 Active Medications Medication Codes Instructions Start Date Stop Date Status Fill Instructions atorvastatin 40 mg tablet RxNorm: 544534 1 Tablet(s) Oral every day 11/29/19 20 2020 Inactive quetiapine 100 mg tablet RxNorm: 050305 1 Tablet(s) Oral every night at bedtime 11/28/19 20 2019 Inactive sertraline 100 mg tablet RxNorm: 525318 1 Tablet(s) Oral 11/28/19 20 2019 Inactive omeprazole 20 mg capsule,delayed release RxNorm: 519102 1 Capsule(s) Oral every day 11/20/19 20 2019 Inactive amoxicillin 250 mg capsule RxNorm: 057162 1 Capsule(s) Oral three times a day 11/07/19 20 2019 Inactive multivitamin with iron-mineral tablet RxNorm: 1 Tablet(s) Oral every day 10/29/19 20 2021 Inactive cetirizine 10 mg tablet RxNorm: 1837213 1 Tablet(s) PO daily 10/20/19 20 2019 Inactive This refill negates all other refills of this medication. Please do not auto refill Singulair 10 mg tablet RxNorm: 460803 1 Tablet(s) PO daily 10/20/19 20 2019 Inactive This refill negates all other refills of this medication gabapentin 300 mg capsule RxNorm: 996452 1 Capsule(s) PO TID 10/20/19 20 2019 Inactive lisinopril 2.5 mg tablet RxNorm: 034178 1 Tablet(s) PO daily 10/20/19 20 2019 Inactive levothyroxine 50 mcg tablet RxNorm: 039136 1 Tablet(s) PO daily 10/20/192019 Inactive This refill negates all other refills of this medication hydrochlorothiazide 25 mg tablet RxNorm: 677273 1 Tablet(s) Oral every day 10/17/19 20 2019 Inactive fenugreek seed extract 500 mg capsule RxNorm: 1 Capsule(s) Oral three times a day 10/17/19 20 2021 Inactive Alcohol Prep Pads RxNorm: 482396 1 Patch TOP QAM 10/16/19 20 2020 Inactive loperamide 2 mg tablet RxNorm: 623960 1 Tablet(s) Oral as needed take one [...] 2019 Inactive hydrochlorothiazide 25 mg tablet RxNorm: 159617 1 Tablet(s) Oral every day 09/19/20 19 2019 Inactive Sudafed 12 Hour 120 mg tablet,extended release RxNorm: 0924919 1 Tablet(s) Oral every 12 hours as needed 09/11/20 19 2018 Inactive omeprazole 20 mg capsule,delayed release RxNorm: 341970 1 Capsule(s) Oral every day 09/07/20 19 2019 Inactive Sudafed 12 Hour 120 mg tablet,extended release RxNorm: 8100673 1 Tablet(s) Oral every 12 hours as needed 09/04/20 19 2018 Inactive pantoprazole 40 mg tablet,delayed release RxNorm: 278713 1 Tablet(s) Oral every day 08/24/20 19 2018 Inactive discontinue any other H2Blkr. and PPI albuterol sulfate 2.5 mg/3 mL (0.083 %) solution for nebulization RxNorm: 559602 1 Vial Inhalation every four hours as needed as needed for dyspnea 08/17/20 19 2019 Inactive 60/box. This refill negates all other refills of this medication. Please do not fill early. Please do not auto refill. Symbicort 160 mcg-4.5 mcg/actuation HFA aerosol inhaler RxNorm: 1782947 2 Puff(s) INH BID 08/17/20 19 No Stop Date Active Alcohol Prep Pads RxNorm: 100056 1 Patch TOP QAM 08/17/20 19 2019 Inactive True Metrix Glucose Test Strip RxNorm: 1 Test Strips Miscellaneous QAM 08/09/20 19 2019 Inactive 100/container Ventolin HFA 90 mcg/actuation aerosol inhaler RxNorm: 878783 2 Puff(s) INH QID 08/09/20 19 2019 Inactive Please do not fill early. Please do not auto refill. This refill negates all other refills of this medication atorvastatin 40 mg tablet RxNorm: 888920 1 Tablet(s) Oral every day 07/04/20 19 2019 Inactive levmetamfetamine 50 mg nasal inhaler RxNorm: 1 Unit(s) NASAL Q3-4H Do not use more than every 3 hours or 8 times/24hours 06/26/20 19 2021 Inactive Please do not auto refill. This refill negates all other refills of this medication diclofenac sodium 75 mg tablet,delayed release RxNorm: 259363 1 Tablet(s) PO BID 06/26/20 19 2019 Inactive This refill negates all other refills of this medication buspirone 7.5 mg tablet RxNorm: 804030 1 Tablet(s) PO BID 06/26/20 19 2020 Inactive This refill negates all other refills of this medication hydrochlorothiazide 12.5 mg tablet RxNorm: 744895 1 Tablet(s) PO QAM 06/26/20 19 2019 Inactive Ventolin HFA 90 mcg/actuation aerosol inhaler RxNorm: 106463 2 Puff(s) INH QID 06/26/20 19 2018 Inactive Please do not fill early. Please do not auto refill. This refill negates all other refills of this medication Singulair 10 mg tablet RxNorm: 599393 1 Tablet(s) PO daily 06/26/20 19 2019 Inactive This refill negates all other refills of this medication cetirizine 10 mg tablet RxNorm: 3295203 1 Tablet(s) PO daily 06/26/20 19 2019 Inactive This refill negates all other refills of this medication. Please do not auto refill levothyroxine 50 mcg tablet RxNorm: 057017 1 Tablet(s) PO daily 06/26/20 19 2019 Inactive This refill negates all other refills of this medication ranitidine 150 mg tablet RxNorm: 453236 1 Tablet(s) PO BID 06/26/20 19 2018 Inactive This refill negates all other refills of this medication Calcium 600-D3 Plus (mag-zinc) 600 mg calcium-800 unit-50 mg tablet RxNorm: 1 Tablet(s) PO daily take an additonal tablet for itching. 06/26/20 19 2018 Inactive This refill negates all other refills of this medication albuterol sulfate 2.5 mg/3 mL (0.083 %) solution for nebulization RxNorm: 798273 1 Vial INH QID 06/26/20 19 2018 Inactive 60/box. This refill negates all other refills of this medication. Please do not fill early. Please do not auto refill. lisinopril 2.5 mg tablet RxNorm: 467722 1 Tablet(s) PO daily 06/21/20 19 2019 Inactive gabapentin 300 mg capsule RxNorm: 004461 1 Capsule(s) PO TID 06/21/20 19 2019 Inactive atorvastatin 20 mg tablet RxNorm: 089818 1 Tablet(s) PO QHS 06/07/20 19 2018 Inactive This refill negates all other refills of this medication TRUEplus Lancets 30 gauge RxNorm: 1 Lancets Miscellaneous QAM 05/29/20 19 2018 Inactive 100/box gabapentin 300 mg capsule RxNorm: 768054 1 Capsule(s) PO TID 05/03/20 19 2018 Inactive Flintstones Complete (iron) 18 mg iron chewable tablet RxNorm: 1 Tablet(s) PO daily 04/04/20 19 2021 Inactive This refill negates all other refills of this medication gabapentin 300 mg capsule RxNorm: 537535 1 Capsule(s) PO TID as needed 02/01/20 19 2018 Inactive True Metrix Glucose Test Strip RxNorm: 1 Test Strips Miscellaneous QA 02/01/20 19 2018 Inactive 100/container Alcohol Prep Pads RxNorm: 513994 1 Patch TOP QA 02/01/20 19 2018 Inactive TRUEplus Lancets 30 gauge RxNorm: 1 Lancets Miscellaneous QAM 02/01/20 19 2018 Inactive 100/box lisinopril 2.5 mg tablet RxNorm: 711185 1 Tablet(s) PO daily 12/28/19 19 2018 Inactive ranitidine 150 mg tablet RxNorm: 192261 1 Tablet(s) PO BID 10/21/19 19 2018 Inactive This refill negates all other refills of this medication albuterol sulfate 2.5 mg/3 mL (0.083 %) solution for nebulization RxNorm: 144546 1 Vial INH QID 10/21/19 19 2018 [...] this medication gabapentin 300 mg capsule RxNorm: 432878 1 Capsule(s) PO TID as needed 10/21/19 19 2018 Inactive atorvastatin 20 mg tablet RxNorm: 053401 1 Tablet(s) PO QHS 10/21/192018 Inactive This refill negates all other refills of this medication trazodone 50 mg tablet RxNorm: 199284 1 Tablet(s) PO QHS 10/21/192018 Inactive This refill negates all other refills of this medication Ventolin HFA 90 mcg/actuation aerosol inhaler RxNorm: 560965 2 Puff(s) INH QID 10/21/192018 Inactive Please do not fill early. Please do not auto refill. This refill negates all other refills of this medication Calcium 600-D3 Plus 600 mg calcium-800 unit-50 mg tablet RxNorm: 1 Tablet(s) PO daily take an additonal tablet for itching. 10/21/192018 Inactive This refill negates all other refills of this medication Singulair 10 mg tablet RxNorm: 061370 1 Tablet(s) PO daily 10/21/192018 Inactive This refill negates all other refills of this medication buspirone 7.5 mg tablet RxNorm: 453100 1 Tablet(s) PO BID 10/21/192018 Inactive This refill negates all other refills of this medication diclofenac sodium 75 mg tablet,delayed release RxNorm: 031892 1 Tablet(s) PO BID 10/21/192018 Inactive This refill negates all other refills of this medication hydrochlorothiazide 12.5 mg tablet RxNorm: 874611 1 Tablet(s) PO QAM 10/21/19 19 2018 Inactive metoprolol succinate ER 50 mg tablet,extended release 24 hr RxNorm: 471199 1 Tablet(s) PO daily 10/21/19 19 2018 Inactive This refill negates all other refills of this medication levothyroxine 50 mcg tablet RxNorm: 589598 1 Tablet(s) PO daily 10/21/19 19 2018 Inactive This refill negates all other refills of this medication cetirizine 10 mg tablet RxNorm: 3109885 1 Tablet(s) PO daily 10/21/192018 Inactive This refill negates all other refills of this medication. Please do not auto refill Flintstones Complete (iron) 18 mg iron chewable tablet RxNorm: 1 Tablet(s) PO daily 10/21/192018 Inactive This refill negates all other refills of this medication buspirone 7.5 mg tablet RxNorm: 501618 1 Tablet(s) PO BID 10/12/19 19 2018 Inactive cetirizine 10 mg tablet RxNorm: 1450186 1 Tablet(s) PO daily 09/28/20 18 2018 Inactive Guaiasorb DM 10 mg-100 mg/5 mL oral liquid RxNorm: 707046 10 Milliliter(s) PO As needed every 4 hr 09/24/20 18 2018 Inactive Vicks Vaporub 4.7 %-1.2 %-2.6 % topical ointment RxNorm: 1798333 1 Application TOP TID 09/24/20 18 2018 Inactive levmetamfetamine 50 mg nasal inhaler RxNorm: 1 Unit(s) NASAL Q3-4H 09/24/20 18 2017 Inactive sertraline 50 mg tablet RxNorm: 000148 1 Tablet(s) PO daily 09/09/20 18 2018 Inactive Please note dose trazodone 50 mg tablet RxNorm: 477604 1 Tablet(s) PO QHS 09/06/20 18 2018 Inactive sertraline 50 mg tablet RxNorm: 029186 1 Tablet(s) PO daily 09/06/20 18 2017 Inactive amoxicillin 500 mg tablet RxNorm: 353282 1 Tablet(s) PO Q12H 08/31/20 18 2017 Inactive albuterol sulfate 2.5 mg/3 mL (0.083 %) solution for nebulization RxNorm: 471342 1 Vial INH QID 08/10/20 18 2018 Inactive 60/box. Please do not fill early. Please do not auto refill. Prozac 10 mg capsule RxNorm: 251683 1 Capsule(s) PO daily 08/09/20 18 2017 Inactive buspirone 7.5 mg tablet RxNorm: 680324 1 Tablet(s) PO BID 08/09/20 18 2018 Inactive gabapentin 300 mg capsule RxNorm: 315340 1 Capsule(s) PO TID as needed 08/01/20 18 2018 Inactive hydrochlorothiazide 12.5 mg tablet RxNorm: 262934 1 Tablet(s) PO QAM 08/01/20 18 2018 Inactive ranitidine 150 mg tablet RxNorm: 092656 1 Tablet(s) PO BID 08/01/20 18 2018 Inactive Macrobid 100 mg capsule RxNorm: 812235 1 Capsule(s) PO Q12H 06/21/20 18 2017 Inactive Singulair 10 mg tablet RxNorm: 537545 1 Tablet(s) PO daily 06/14/20 18 2018 Inactive Ventolin HFA 90 mcg/actuation aerosol inhaler RxNorm: 9260152 2 Puff(s) INH QID 06/14/20 18 2018 Inactive Singulair 10 mg tablet RxNorm: 399021 1 Tablet(s) PO daily 06/14/20 18 2017 Inactive buspirone 7.5 mg tablet RxNorm: 260133 1 Tablet(s) PO BID 06/14/20 18 2017 Inactive Prozac 10 mg capsule RxNorm: 319111 1 Capsule(s) PO daily 06/14/20 18 2017 Inactive Neilmed Pediatric Sinus Rinse Refill packet RxNorm: 1 Unit Dose NASAL PRN 05/31/20 18 2021 Inactive diclofenac sodium 75 mg tablet,delayed release RxNorm: 340906 1 Tablet(s) PO BID 05/31/20 18 2017 Inactive lisinopril 2.5 mg tablet RxNorm: 840510 1 Tablet(s) PO daily 05/31/20 18 2017 Inactive metoprolol succinate ER 50 mg tablet,extended release 24 hr RxNorm: 424779 1 Tablet(s) PO daily 05/31/20 18 2017 Inactive levothyroxine 50 mcg tablet RxNorm: 789168 1 Tablet(s) PO daily 05/31/20 18 2017 Inactive TRUEplus Lancets 30 gauge RxNorm: 1 Lancets Miscellaneous QAM 05/31/20 18 2017 Inactive 100/box Ventolin HFA 90 mcg/actuation aerosol inhaler RxNorm: 023245 2 Puff(s) INH QID 05/31/20 18 2017 Inactive Aleve 220 mg capsule RxNorm: 0184050 1 Capsule(s) PO BID 05/31/20 18 2018 Inactive ranitidine 150 mg tablet RxNorm: 882880 1 Tablet(s) PO BID 05/31/20 18 2017 Inactive gabapentin 300 mg capsule RxNorm: 591563 1 Capsule(s) PO TID as needed 05/31/20 18 2017 Inactive atorvastatin 20 mg tablet RxNorm: 752695 1 Tablet(s) PO QHS 05/31/20 18 2017 Inactive True Metrix Glucose Test Strip RxNorm: 1 Test Strips Miscellaneous QAM 05/31/20 18 2017 Inactive 50/container Calcium 600-D3 Plus 600 mg calcium-800 unit-50 mg tablet RxNorm: 1 Tablet(s) PO daily take an additonal tablet for itching. 05/31/20 18 2017 Inactive hydrochlorothiazide 12.5 mg tablet RxNorm: 153080 1 Tablet(s) PO QAM 05/31/20 18 2017 Inactive Flintstones Complete (iron) 18 mg iron chewable tablet RxNorm: 1 Tablet(s) PO daily 05/31/20 18 2017 Inactive d-mannose oral powder RxNorm: PO 18 2021 Inactive True Metrix Glucose Meter RxNorm: miscellaneous 08/17/202018 Inactive sertraline 50 mg tablet RxNorm: 796072 1 Tablet(s) PO daily 11/28/19 20 2019 Inactive loperamide 2 mg tablet RxNorm: 828175 oral 09/29/202018 Inactive Symbicort 160 mcg-4.5 mcg/actuation HFA aerosol inhaler RxNorm: 0154820 2 Puff(s) INH BID 08/17/202018 Inactive Medication Administered No Medication Administered data Procedures Procedure Codes Date Ruth Fany Assessment CPT-4: DSWA 11/04 Patient Health Questionnaire CPT-4: DPHQ Ruth Fany Assessment CPT-4: DSWA 10/03 Hypertension CPT-4: HTN 10/17/2019 Fall Risk Assessment SNOMED CT: 06864378 4 CPT-4: DFRA 09/19/2019 Functional Assessment CPT-4: DFA 09/19/2019 Urinalysis, dip stick CPT-4: 78630 06/21/2019 Tobacco Assessment/Screening CPT-4: TCA Patient Health Questionnaire CPT-4: DPHQ AHA/REBECCA Classification Assessment CPT-4: DAHA 04/25/2019 Controlled Substance Report CPT-4: CTRSU 04/03 Urinalysis, dip stick CPT-4: 12635 03/28/2019 Urinalysis, dip stick CPT-4: 87197 03/28/2019 [id number] CPT-4: 08817 Unknown [id number] CPT-4: 63700 Unknown Gynecology Referral SNOMED CT: 980030091 CPT-4: R14 Unknown Reason For Visit No [...] Initiated Referral: [facility] WPtel: [phone] [facility] [address] [employer] Attorney placed a call out to the patient to notify her that it has been recommended that she be seen by 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 Patient agreed to be seen, does not have a provider of choice and no transportation issues. [employer] Attorney faxed referral and clinical notes to [facility] in [place], [place] near the patient's home. Patient to [...] seen and prefers a provider in the [place] or [place] area. [employer] Attorney placed a call out to everyone listed in the area and the only location that was able to accept the patient's insurance was [address] [id number] and spoke with Maylin. Maylin asked that the patient's referral, face sheet and visit notes be faxed to . [employer] Attorney faxed over requested documents. Patient appointment confirmation letter generated and mailed to her home address. Patient to call to schedule an appointment. [facility] [phone] [facility] [address] [place], [place] [id number] Patient notified that it has been advised that she be seen by Neurology. Patient agreed to be seen and prefers to be seen by a provider in the [place], [place] area. Patient denies any concerns with transportation, and prefers to schedule her own appointment. [employer] Attorney [facility] and spoke with Neeraj Mcfarland: [...]
--- OUTSIDE RECORDS SUMMARY | 2023-12-07 02:09 | XMS_ITS | CCD ---
Author Name Leena Culver NP Address [id number] [place] [address] [address] [place] [address] Phone Organization [facility] Phone Care Team Providers Care Clin Tech Name Role Phone Anna Culver NP Primary Care Provider Unav ailable Unavailable Chronic Care Management Unavaila ble Summary Purpose DataExchange Insurance Providers Payer name Policy type / Coverage type Covered green party ID Effective Begin Date Effective End Date SUKI MAYO [id number] Unknown Unknown Family history Mother Diagnosis Age [...] Unknown Disability 05/31/[address]: 880339534 Has never s moked or chewed tobacco 05/31/[address]: 525402835 Never drinks alco hol 05/31/2018 Has the [...] St atus Fecal incontinence ICD-10: R15.9 ICD-9: 787.60 12/15/2019 [...] ICD-10: Z12.4 ICD-9: V76.2 04/25/2019 Active Other retirement (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 ICD-10: Z79.899 ICD-9: [...] Headache ICD-10: R51 ICD-9: 784.0 10/03/2018 Active 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) use of non-steroidal anti-inflammatories (NSAID) ICD-10: Z79.1 ICD-9: V58.64 06/13/2018 Active Medications Medication Codes Instructions Start Date Stop Date Status Fill Instructions loperamide 2 mg tablet RxNorm: 774340 1 Tablet(s) Oral as needed take one tablet after each loose stool, maximum of 8 tablets in 24 hours 12/11/19 20 2019 Inactive loperamide 2 mg tablet RxNorm: 799375 1 Tablet(s) Oral as needed take one tablet after each loose stool, maximum of 8 tablets in 24 hours 12/11/19 20 2019 Inactive atorvastatin 40 mg tablet RxNorm: 130160 1 Tablet(s) Oral every day 11/29/19 20 2020 Inactive quetiapine 100 mg tablet RxNorm: 734008 1 Tablet(s) Oral every night at bedtime 11/28/19 20 2019 Inactive sertraline 100 mg tablet RxNorm: 600635 1 Tablet(s) Oral 11/28/19 20 2019 Inactive omeprazole 20 mg capsule,delayed release RxNorm: 059452 1 Capsule(s) Oral every day 11/20/19 20 2019 Inactive amoxicillin 250 mg capsule RxNorm: 688378 1 Capsule(s) Oral three times a day 11/07/19 20 2019 Inactive multivitamin with iron-mineral tablet RxNorm: 1 Tablet(s) Oral every day 10/29/19 20 2021 Inactive cetirizine 10 mg tablet RxNorm: 2725057 1 Tablet(s) PO daily 10/20/19 20 2019 Inactive This refill negates all other refills of this medication. Please do not auto refill Singulair 10 mg tablet RxNorm: 984987 1 Tablet(s) PO daily 10/20/19 20 2019 Inactive This refill negates all other refills of this medication gabapentin 300 mg capsule RxNorm: 679105 1 Capsule(s) PO TID 10/20/19 20 2019 Inactive lisinopril 2.5 mg tablet RxNorm: 257688 1 Tablet(s) PO daily 10/20/19 20 2019 Inactive levothyroxine 50 mcg tablet RxNorm: 166562 1 Tablet(s) PO daily 10/20/19 20 2019 Inactive This refill negates all other refills of this medication hydrochlorothiazide 25 mg tablet RxNorm: 841044 1 Tablet(s) Oral every day 10/17/19 20 2019 Inactive fenugreek seed extract 500 mg capsule RxNorm: 1 Capsule(s) Oral three times a day 10/17/19 20 2021 Inactive Alcohol Prep Pads RxNorm: 160459 1 Patch TOP QAM 10/16/19 20 2020 Inactive loperamide 2 mg tablet RxNorm: 067619 1 Tablet(s) Oral as needed take one [...] 2019 Inactive hydrochlorothiazide 25 mg tablet RxNorm: 604673 1 Tablet(s) Oral every day 09/19/20 19 2019 Inactive Sudafed 12 Hour 120 mg tablet,extended release RxNorm: 5390399 1 Tablet(s) Oral every 12 hours as needed 09/11/20 19 2018 Inactive omeprazole 20 mg capsule,delayed release RxNorm: 347449 1 Capsule(s) Oral every day 09/07/20 19 2019 Inactive Sudafed 12 Hour 120 mg tablet,extended release RxNorm: 0448847 1 Tablet(s) Oral every 12 hours as needed 09/04/20 19 2018 Inactive pantoprazole 40 mg tablet,delayed release RxNorm: 357750 1 Tablet(s) Oral every day 08/24/20 19 2018 Inactive discontinue any other H2Blkr. and PPI albuterol sulfate 2.5 mg/3 mL (0.083 %) solution for nebulization RxNorm: 846855 1 Vial Inhalation every four hours as needed as needed for dyspnea 08/17/20 19 2019 Inactive 60/box. This refill negates all other refills of this medication. Please do not fill early. Please do not auto refill. Symbicort 160 mcg-4.5 mcg/actuation HFA aerosol inhaler RxNorm: 2642054 2 Puff(s) INH BID 08/17/20 No Stop Date Active Alcohol Prep Pads RxNorm: 062663 1 Patch TOP QAM 08/17/20 19 2019 Inactive True Metrix Glucose Test Strip RxNorm: 1 Test Strips Miscellaneous QAM 08/09/20 19 2019 Inactive 100/container Ventolin HFA 90 mcg/actuation aerosol inhaler RxNorm: 814174 2 Puff(s) INH QID 08/09/20 19 2019 Inactive Please do not fill early. Please do not auto refill. This refill negates all other refills of this medication atorvastatin 40 mg tablet RxNorm: 365673 1 Tablet(s) Oral every day 07/04/20 19 2019 Inactive levmetamfetamine 50 mg nasal inhaler RxNorm: 1 Unit(s) NASAL Q3-4H Do not use more than every 3 hours or 8 times/24hours 06/26/20 19 2021 Inactive Please do not auto refill. This refill negates all other refills of this medication diclofenac sodium 75 mg tablet,delayed release RxNorm: 998205 1 Tablet(s) PO BID 06/26/20 19 2019 Inactive This refill negates all other refills of this medication buspirone 7.5 mg tablet RxNorm: 030648 1 Tablet(s) PO BID 06/26/20 19 2020 Inactive This refill negates all other refills of this medication hydrochlorothiazide 12.5 mg tablet RxNorm: 508566 1 Tablet(s) PO QAM 06/26/20 19 2019 Inactive Ventolin HFA 90 mcg/actuation aerosol inhaler RxNorm: 838076 2 Puff(s) INH QID 06/26/20 19 2018 Inactive Please do not fill early. Please do not auto refill. This refill negates all other refills of this medication Singulair 10 mg tablet RxNorm: 514489 1 Tablet(s) PO daily 06/26/20 19 2019 Inactive This refill negates all other refills of this medication cetirizine 10 mg tablet RxNorm: 4738718 1 Tablet(s) PO daily 06/26/20 19 2019 Inactive This refill negates all other refills of this medication. Please do not auto refill levothyroxine 50 mcg tablet RxNorm: 785375 1 Tablet(s) PO daily 06/26/20 19 2019 Inactive This refill negates all other refills of this medication ranitidine 150 mg tablet RxNorm: 955803 1 Tablet(s) PO BID 06/26/20 19 2018 Inactive This refill negates all other refills of this medication Calcium 600-D3 Plus (mag-zinc) 600 mg calcium-800 unit-50 mg tablet RxNorm: 1 Tablet(s) PO daily take an additonal tablet for itching. 06/26/20 19 2018 Inactive This refill negates all other refills of this medication albuterol sulfate 2.5 mg/3 mL (0.083 %) solution for nebulization RxNorm: 341136 1 Vial INH QID 06/26/20 19 2018 Inactive 60/box. This refill negates all other refills of this medication. Please do not fill early. Please do not auto refill. lisinopril 2.5 mg tablet RxNorm: 258750 1 Tablet(s) PO daily 06/21/20 19 2019 Inactive gabapentin 300 mg capsule RxNorm: 639811 1 Capsule(s) PO TID 06/21/20 19 2019 Inactive atorvastatin 20 mg tablet RxNorm: 535552 1 Tablet(s) PO QHS 06/07/20 19 2018 Inactive This refill negates all other refills of this medication TRUEplus Lancets 30 gauge RxNorm: 1 Lancets Miscellaneous QAM 05/29/20 19 2018 Inactive 100/box gabapentin 300 mg capsule RxNorm: 077311 1 Capsule(s) PO TID 05/03/20 19 2018 Inactive Flintstones Complete (iron) 18 mg iron chewable tablet RxNorm: 1 Tablet(s) PO daily 04/04/20 19 2021 Inactive This refill negates all other refills of this medication gabapentin 300 mg capsule RxNorm: 929445 1 Capsule(s) PO TID as needed 02/01/20 19 2018 Inactive True Metrix Glucose Test Strip RxNorm: 1 Test Strips Miscellaneous QAM 02/01/20 19 2018 Inactive 100/container Alcohol Prep Pads RxNorm: 075776 1 Patch TOP QAM 02/01/20 19 2018 Inactive TRUEplus Lancets 30 gauge RxNorm: 1 Lancets Miscellaneous QAM 02/01/20 19 2018 Inactive 100/box lisinopril 2.5 mg tablet RxNorm: 655876 1 Tablet(s) PO daily 12/28/19 19 2018 Inactive ranitidine 150 mg tablet RxNorm: 501295 1 Tablet(s) PO BID 10/21/192018 Inactive This refill negates all other refills of this medication albuterol sulfate 2.5 mg/3 mL (0.083 %) solution for nebulization RxNorm: 276654 1 Vial INH QID 10/21/19 19 2018 [...] this medication gabapentin 300 mg capsule RxNorm: 501353 1 Capsule(s) PO TID as needed 10/21/19 19 2018 Inactive atorvastatin 20 mg tablet RxNorm: 378532 1 Tablet(s) PO QHS 10/21/19 19 2018 Inactive This refill negates all other refills of this medication trazodone 50 mg tablet RxNorm: 867513 1 Tablet(s) PO QHS 10/21/19 19 2018 Inactive This refill negates all other refills of this medication Ventolin HFA 90 mcg/actuation aerosol inhaler RxNorm: 924089 2 Puff(s) INH QID 10/21/19 19 2018 [...] this medication Singulair 10 mg tablet RxNorm: 404134 1 Tablet(s) PO daily 10/21/19 19 2018 Inactive This refill negates all other refills of this medication buspirone 7.5 mg tablet RxNorm: 818138 1 Tablet(s) PO BID 10/21/192018 Inactive This refill negates all other refills of this medication diclofenac sodium 75 mg tablet,delayed release RxNorm: 578511 1 Tablet(s) PO BID 10/21/19 19 2018 Inactive This refill negates all other refills of this medication hydrochlorothiazide 12.5 mg tablet RxNorm: 670898 1 Tablet(s) PO QAM 10/21/19 19 2018 Inactive metoprolol succinate ER 50 mg tablet,extended release 24 hr RxNorm: 095551 1 Tablet(s) PO daily 10/21/19 19 2018 Inactive This refill negates all other refills of this medication levothyroxine 50 mcg tablet RxNorm: 763627 1 Tablet(s) PO daily 10/21/192018 Inactive This refill negates all other refills of this medication cetirizine 10 mg tablet RxNorm: 5269887 1 Tablet(s) PO daily 10/21/192018 Inactive This refill negates all other refills of this medication. Please do not auto refill Flintstones Complete (iron) 18 mg iron chewable tablet RxNorm: 1 Tablet(s) PO daily 10/21/192018 Inactive This refill negates all other refills of this medication buspirone 7.5 mg tablet RxNorm: 844568 1 Tablet(s) PO BID 10/12/19 19 2018 Inactive cetirizine 10 mg tablet RxNorm: 2736978 1 Tablet(s) PO daily 09/28/202018 Inactive Guaiasorb DM 10 mg-100 mg/5 mL oral liquid RxNorm: 697267 10 Milliliter(s) PO As needed every 4 hr 09/24/20 18 2018 Inactive Vicks Vaporub 4.7 %-1.2 %-2.6 % topical ointment RxNorm: 5645080 1 Application TOP TID 09/24/20 18 2018 Inactive levmetamfetamine 50 mg nasal inhaler RxNorm: 1 Unit(s) NASAL Q3-4H 09/24/20 18 2017 Inactive sertraline 50 mg tablet RxNorm: 657798 1 Tablet(s) PO daily 09/09/20 18 2018 Inactive Please note dose trazodone 50 mg tablet RxNorm: 523751 1 Tablet(s) PO QHS 09/06/20 18 2018 Inactive sertraline 50 mg tablet RxNorm: 046390 1 Tablet(s) PO daily 09/06/20 18 2017 Inactive amoxicillin 500 mg tablet RxNorm: 954626 1 Tablet(s) PO Q12H 08/31/20 18 2017 Inactive albuterol sulfate 2.5 mg/3 mL (0.083 %) solution for nebulization RxNorm: 675583 1 Vial INH QID 08/10/20 18 2018 Inactive 60/box. Please do not fill early. Please do not auto refill. Prozac 10 mg capsule RxNorm: 661302 1 Capsule(s) PO daily 08/09/20 18 2017 Inactive buspirone 7.5 mg tablet RxNorm: 935397 1 Tablet(s) PO BID 08/09/20 18 2018 Inactive gabapentin 300 mg capsule RxNorm: 129010 1 Capsule(s) PO TID as needed 08/01/20 18 2018 Inactive hydrochlorothiazide 12.5 mg tablet RxNorm: 531742 1 Tablet(s) PO QAM 08/01/20 18 2018 Inactive ranitidine 150 mg tablet RxNorm: 705544 1 Tablet(s) PO BID 08/01/20 18 2018 Inactive Macrobid 100 mg capsule RxNorm: 883960 1 Capsule(s) PO Q12H 06/21/20 18 2017 Inactive Singulair 10 mg tablet RxNorm: 081730 1 Tablet(s) PO daily 06/14/20 18 2018 Inactive Ventolin HFA 90 mcg/actuation aerosol inhaler RxNorm: 3249347 2 Puff(s) INH QID 06/14/20 18 2018 Inactive Singulair 10 mg tablet RxNorm: 989470 1 Tablet(s) PO daily 06/14/20 18 2017 Inactive buspirone 7.5 mg tablet RxNorm: 144363 1 Tablet(s) PO BID 06/14/20 18 2017 Inactive Prozac 10 mg capsule RxNorm: 334673 1 Capsule(s) PO daily 06/14/20 18 2017 Inactive Neilmed Pediatric Sinus Rinse Refill packet RxNorm: 1 Unit Dose NASAL PRN 05/31/20 18 2021 Inactive diclofenac sodium 75 mg tablet,delayed release RxNorm: 461137 1 Tablet(s) PO BID 05/31/20 18 2017 Inactive lisinopril 2.5 mg tablet RxNorm: 428865 1 Tablet(s) PO daily 05/31/20 18 2017 Inactive metoprolol succinate ER 50 mg tablet,extended release 24 hr RxNorm: 926038 1 Tablet(s) PO daily 05/31/20 18 2017 Inactive levothyroxine 50 mcg tablet RxNorm: 437769 1 Tablet(s) PO daily 05/31/20 18 2017 Inactive TRUEplus Lancets 30 gauge RxNorm: 1 Lancets Miscellaneous QAM 05/31/20 18 2017 Inactive 100/box Ventolin HFA 90 mcg/actuation aerosol inhaler RxNorm: 853823 2 Puff(s) INH QID 05/31/20 18 2017 Inactive Aleve 220 mg capsule RxNorm: 5406644 1 Capsule(s) PO BID 05/31/20 18 2018 Inactive ranitidine 150 mg tablet RxNorm: 281901 1 Tablet(s) PO BID 05/31/20 18 2017 Inactive gabapentin 300 mg capsule RxNorm: 514706 1 Capsule(s) PO TID as needed 05/31/20 18 2017 Inactive atorvastatin 20 mg tablet RxNorm: 085080 1 Tablet(s) PO QHS 05/31/20 18 2017 Inactive True Metrix Glucose Test Strip RxNorm: 1 Test Strips Miscellaneous QA 05/31/20 18 2017 Inactive 50/container Calcium 600-D3 Plus 600 mg calcium-800 unit-50 mg tablet RxNorm: 1 Tablet(s) PO daily take an additonal tablet for itching. 05/31/20 18 2017 Inactive hydrochlorothiazide 12.5 mg tablet RxNorm: 172127 1 Tablet(s) PO QAM 05/31/20 18 2017 Inactive Flintstones Complete (iron) 18 mg iron chewable tablet RxNorm: 1 Tablet(s) PO daily 05/31/20 18 2017 Inactive d-mannose oral powder RxNorm: PO 18 2021 Inactive True Metrix Glucose Meter RxNorm: miscellaneous 08/17/20 19 2018 Inactive sertraline 50 mg tablet RxNorm: 051285 1 Tablet(s) PO daily 11/28/19 20 2019 Inactive loperamide 2 mg tablet RxNorm: 797433 oral 09/29/20 19 2018 Inactive Symbicort 160 mcg-4.5 mcg/actuation HFA aerosol inhaler RxNorm: 2315030 2 Puff(s) INH BID 08/17/20 19 2018 Inactive Medication Administered No Medication Administered data Procedures Procedure Codes Date Odum Fany Assessment CPT-4: DSWA 11/04 Patient Health Questionnaire CPT-4: DPHQ Odum Fany Assessment CPT-4: DSWA 10/03 Hypertension CPT-4: HTN 10/17/2019 Fall Risk Assessment SNOMED CT: 12880106 4 CPT-4: DFRA 09/19/2019 Functional Assessment CPT-4: DFA 09/19/2019 Urinalysis, dip stick CPT-4: 00794 06/21/2019 Tobacco Assessment/Screening CPT-4: TCA Patient Health Questionnaire CPT-4: DPHQ AHA/REBECCA Classification Assessment CPT-4: DAHA 04/25/2019 Controlled Substance Report CPT-4: CTRSU 04/03 Urinalysis, dip stick CPT-4: 86622 03/28/2019 Urinalysis, dip stick CPT-4: 50272 03/28/2019 [id number] CPT-4: 79462 Unknown [id number] CPT-4: 02574 Unknown Gynecology Referral SNOMED CT: 923634708 CPT-4: R14 Unknown Reason For Visit No Reason For Visit data Plan of Care Planned Activity Notes Codes Status Date Patient Education: Patient Medication Summary Completed 12/15/2019 Care Plan: Incontinence Supplies Ordered 12/15/2019 Appointment: Anna Culver WPtel: [address] [place] [address] E452 11/28/2019 Appointment: Anna Culver WPtel: [address] [place] [address] E452 10/17/2019 Appointment: Anna Culver WPtel: [address] [place] [address] E452 09/19/2019 Appointment: Sudha Hernadez WPtel: [address] [facility] [id number] E452 07/04/2019 Appointment: Sudha Hernadez WPtel: [address] [facility] [id number] E452 06/21/2019 Appointment: Charlene Oropeza WPtel: [address] [facility] [id number] E452 05/24/2019 Appointment: Mallory Delgado E452 04/27/2019 Appointment: Charlene Oropeza WPtel: [address] [facility] [id number] E452 04/25/2019 Appointment: Rasta Palafox WPtel: [address] [facility] [id number] E452 03/28/2019 Appointment: Rasta Palafox WPtel: [address] [facility] [address] [id number] E452 02/14/2019 Appointment: Rasta Palafox WPtel: [address] [facility] [address] [id number] E452 01/31/2019 Appointment: Rasta Palafox WPtel: [address] [facility] [address] [id number] E420 12/27/2018 Referral: Pending Gynecology Referral Information Referral Processed Referral: Pending Pulmonolog y Referral Information Referral Processed Referral: Pending Psychiatry Referral Information Referral Initiated Referral: Pending Respirator y Services Referral Information Referral Initiated Referral: Pending Ophthalmology Referral Information Referral Initiated Referral: [facility] WPtel: [address] [facility] [address] Roller Painter placed a call out to the patient to notify her that it has been recommended that she be seen by 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 Patient agreed to be seen, does not have a provider of choice and no transportation issues. Roller Painter faxed referral and clinical notes to [facility] in [place], [place] near the patient's home. Patient to [...] seen and prefers a provider in the [place] or [place] area. Roller Painter placed a call out to everyone listed in the area and the only location that was able to accept the patient's insurance was [place] [address] [place] [address] and spoke with Maylin. Maylin asked that the patient's referral, face sheet and visit notes be faxed to . Roller Painter faxed over requested documents. Patient appointment confirmation letter generated and mailed to her home address. Patient to call to schedule an appointment. [facility] [address] [facility] [address] [place], [place] [id number] Patient notified that it has been advised that she be seen by Neurology. Patient agreed to be seen and prefers to be seen by a provider in the [place], [place] area. Patient denies any concerns with transportation, and prefers to schedule her own appointment. Roller Painter placed a call out to [facility] and spoke with [...]
--- OUTSIDE RECORDS SUMMARY | 2023-12-07 02:09 | XMS_ITS | CCD ---
Author Name Leena Culver NP Address [id number] [place] [address] [address] [place] [address] Phone Organization [facility] Phone Care Team Providers Care Adult Daycare Coordinator Name Role Phone Anna Culver NP Primary Care Provider Unav ailable Unavailable Chronic Care Management Unavaila ble Summary Purpose DataExchange Insurance Providers Payer name Policy type / Coverage type Covered constitution party ID Effective Begin Date Effective End Date SUKI MAYO [id number] Unknown Unknown Family history Mother Diagnosis Age [...] Unknown Disability 05/31/[address]: 282873205 Has never s moked or chewed tobacco 05/31/[address]: 951522004 Never drinks alco hol 05/31/2018 Has the [...] Condition Codes Effective Dates Condition St atus Sinusitis ICD-10: J32.9 ICD-9: 473.9 11/07/2019 Active Hypertensive heart disease w ith heart [...] ICD-10: Z12.4 ICD-9: V76.2 04/25/2019 Active Other long chain quiller tender (current) dr sharma therapy ICD-10: Z79.899 ICD-9: [...] Headache ICD-10: R51 ICD-9: 784.0 10/03/2018 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 Please do not auto refill Singulair 10 mg tablet RxNorm: 516438 1 Tablet(s) PO daily 10/20/19 20 2019 Inactive This refill negates all other refills of this medication gabapentin 300 mg capsule RxNorm: 473710 1 Capsule(s) PO TID 10/20/19 20 2019 Inactive lisinopril 2.5 mg tablet RxNorm: 444910 1 Tablet(s) PO daily 10/20/19 20 2019 Inactive levothyroxine 50 mcg tablet RxNorm: 824379 1 Tablet(s) PO daily 10/20/19 20 2019 Inactive This refill negates all other refills of this medication hydrochlorothiazide 25 mg tablet RxNorm: 410239 1 Tablet(s) Oral every day 10/17/19 20 2019 Inactive fenugreek seed extract 500 mg capsule RxNorm: 1 Capsule(s) Oral three times a day 10/17/19 20 2021 Inactive Alcohol Prep Pads RxNorm: 900092 1 Patch TOP QAM 10/16/19 20 2020 Inactive loperamide 2 mg tablet RxNorm: 631422 1 Tablet(s) Oral as needed take one [...] 2019 Inactive hydrochlorothiazide 25 mg tablet RxNorm: 645332 1 Tablet(s) Oral every day 09/19/20 19 2019 Inactive Sudafed 12 Hour 120 mg tablet,extended release RxNorm: 8751323 1 Tablet(s) Oral every 12 hours as needed 09/11/20 19 2018 Inactive omeprazole 20 mg capsule,delayed release RxNorm: 823084 1 Capsule(s) Oral every day 09/07/20 19 2019 Inactive Sudafed 12 Hour 120 mg tablet,extended release RxNorm: 7462305 1 Tablet(s) Oral every 12 hours as needed 09/04/20 19 2018 Inactive pantoprazole 40 mg tablet,delayed release RxNorm: 159464 1 Tablet(s) Oral every day 08/24/20 19 2018 Inactive discontinue any other H2Blkr. and PPI albuterol sulfate 2.5 mg/3 mL (0.083 %) solution for nebulization RxNorm: 536233 1 Vial Inhalation every four hours as needed as needed for dyspnea 08/17/20 19 2019 Inactive 60/box. This refill negates all other refills of this medication. Please do not fill early. Please do not auto refill. Symbicort 160 mcg-4.5 mcg/actuation HFA aerosol inhaler RxNorm: 1026245 2 Puff(s) INH BID 08/17/20 19 No Stop Date Active Alcohol Prep Pads RxNorm: 287408 1 Patch TOP QAM 08/17/20 19 2019 Inactive True Metrix Glucose Test Strip RxNorm: 1 Test Strips Miscellaneous QAM 08/09/20 19 2019 Inactive 100/container Ventolin HFA 90 mcg/actuation aerosol inhaler RxNorm: 713709 2 Puff(s) INH QID 08/09/20 19 2019 Inactive Please do not fill early. Please do not auto refill. This refill negates all other refills of this medication atorvastatin 40 mg tablet RxNorm: 098875 1 Tablet(s) Oral every day 07/04/20 19 2019 Inactive levmetamfetamine 50 mg nasal inhaler RxNorm: 1 Unit(s) NASAL Q3-4H Do not use more than every 3 hours or 8 times/24hours 06/26/20 19 2021 Inactive Please do not auto refill. This refill negates all other refills of this medication diclofenac sodium 75 mg tablet,delayed release RxNorm: 067588 1 Tablet(s) PO BID 06/26/20 19 2019 Inactive This refill negates all other refills of this medication buspirone 7.5 mg tablet RxNorm: 836295 1 Tablet(s) PO BID 06/26/20 19 2020 Inactive This refill negates all other refills of this medication hydrochlorothiazide 12.5 mg tablet RxNorm: 764059 1 Tablet(s) PO QAM 06/26/20 19 2019 Inactive Ventolin HFA 90 mcg/actuation aerosol inhaler RxNorm: 706750 2 Puff(s) INH QID 06/26/20 19 2018 Inactive Please do not fill early. Please do not auto refill. This refill negates all other refills of this medication Singulair 10 mg tablet RxNorm: 722447 1 Tablet(s) PO daily 06/26/20 19 2019 Inactive This refill negates all other refills of this medication cetirizine 10 mg tablet RxNorm: 6316140 1 Tablet(s) PO daily 06/26/20 19 2019 Inactive This refill negates all other refills of this medication. Please do not auto refill levothyroxine 50 mcg tablet RxNorm: 216927 1 Tablet(s) PO daily 06/26/202019 Inactive This refill negates all other refills of this medication ranitidine 150 mg tablet RxNorm: 198347 1 Tablet(s) PO BID 06/26/20 19 2018 Inactive This refill negates all other refills of this medication Calcium 600-D3 Plus (mag-zinc) 600 mg calcium-800 unit-50 mg tablet RxNorm: 1 Tablet(s) PO daily take an additonal tablet for itching. 06/26/202018 Inactive This refill negates all other refills of this medication albuterol sulfate 2.5 mg/3 mL (0.083 %) solution for nebulization RxNorm: 046865 1 Vial INH QID 06/26/20 19 2018 Inactive 60/box. This refill negates all other refills of this medication. Please do not fill early. Please do not auto refill. lisinopril 2.5 mg tablet RxNorm: 360312 1 Tablet(s) PO daily 06/21/20 19 2019 Inactive gabapentin 300 mg capsule RxNorm: 650971 1 Capsule(s) PO TID 09/19/2019 Inactive atorvastatin 20 mg tablet RxNorm: 066341 1 Tablet(s) PO QHS 06/07/20 19 2018 Inactive This refill negates all other refills of this medication TRUEplus Lancets 30 gauge RxNorm: 1 Lancets Miscellaneous QAM 05/29/20 19 2018 Inactive 100/box gabapentin 300 mg capsule RxNorm: 621510 1 Capsule(s) PO TID 05/03/20 19 2018 Inactive Flnickolas Complete (iron) 18 mg iron chewable tablet RxNorm: 1 Tablet(s) PO daily 04/04/202021 Inactive This refill negates all other refills of this medication gabapentin 300 mg capsule RxNorm: 230702 1 Capsule(s) PO TID as needed 02/01/20 19 2018 Inactive True Metrix Glucose Test Strip RxNorm: 1 Test Strips Miscellaneous QAM 02/01/20 19 2018 Inactive 100/container Alcohol Prep Pads RxNorm: 146826 1 Patch TOP QAM 02/01/20 19 2018 Inactive TRUEplus Lancets 30 gauge RxNorm: 1 Lancets Miscellaneous QAM 02/01/20 19 2018 Inactive 100/box lisinopril 2.5 mg tablet RxNorm: 637479 1 Tablet(s) PO daily 12/28/19 19 2018 Inactive ranitidine 150 mg tablet RxNorm: 985829 1 Tablet(s) PO BID 10/21/192018 Inactive This refill negates all other refills of this medication albuterol sulfate 2.5 mg/3 mL (0.083 %) solution for nebulization RxNorm: 345942 1 Vial INH QID 10/21/192018 Inactive 60/box. [...] this medication gabapentin 300 mg capsule RxNorm: 135895 1 Capsule(s) PO TID as needed 10/21/19 19 2018 Inactive atorvastatin 20 mg tablet RxNorm: 142247 1 Tablet(s) PO QHS 10/21/19 19 2018 Inactive This refill negates all other refills of this medication trazodone 50 mg tablet RxNorm: 644532 1 Tablet(s) PO QHS 10/21/19 19 2018 Inactive This refill negates all other refills of this medication Ventolin HFA 90 mcg/actuation aerosol inhaler RxNorm: 412177 2 Puff(s) INH QID 10/21/192018 Inactive Please do not fill early. Please do not auto refill. This refill negates all other refills of this medication Calcium 600-D3 Plus 600 mg calcium-800 unit-50 mg tablet RxNorm: 1 Tablet(s) PO daily take an additonal tablet for itching. 10/21/19 19 2018 Inactive This refill negates all other refills of this medication Singulair 10 mg tablet RxNorm: 028059 1 Tablet(s) PO daily 10/21/192018 Inactive This refill negates all other refills of this medication buspirone 7.5 mg tablet RxNorm: 223402 1 Tablet(s) PO BID 10/21/192018 Inactive This refill negates all other refills of this medication diclofenac sodium 75 mg tablet,delayed release RxNorm: 432969 1 Tablet(s) PO BID 10/21/192018 Inactive This refill negates all other refills of this medication hydrochlorothiazide 12.5 mg tablet RxNorm: 063135 1 Tablet(s) PO QAM 10/21/19 19 2018 Inactive metoprolol succinate ER 50 mg tablet,extended release 24 hr RxNorm: 379462 1 Tablet(s) PO daily 10/21/19 19 2018 Inactive This refill negates all other refills of this medication levothyroxine 50 mcg tablet RxNorm: 888358 1 Tablet(s) PO daily 10/21/19 19 2018 Inactive This refill negates all other refills of this medication cetirizine 10 mg tablet RxNorm: 6162374 1 Tablet(s) PO daily 10/21/19 19 2018 Inactive This refill negates all other refills of this medication. Please do not auto refill Flintstones Complete (iron) 18 mg iron chewable tablet RxNorm: 1 Tablet(s) PO daily 10/21/19 19 2018 Inactive This refill negates all other refills of this medication buspirone 7.5 mg tablet RxNorm: 920852 1 Tablet(s) PO BID 10/12/19 19 2018 Inactive cetirizine 10 mg tablet RxNorm: 9872531 1 Tablet(s) PO daily 09/28/20 18 2018 Inactive Guaiasorb DM 10 mg-100 mg/5 mL oral liquid RxNorm: 460793 10 Milliliter(s) PO As needed every 4 hr 09/24/20 18 2018 Inactive Vicks Vaporub 4.7 %-1.2 %-2.6 % topical ointment RxNorm: 9970481 1 Application TOP TID 09/24/20 18 2018 Inactive levmetamfetamine 50 mg nasal inhaler RxNorm: 1 Unit(s) NASAL Q3-4H 09/24/20 18 2017 Inactive sertraline 50 mg tablet RxNorm: 473887 1 Tablet(s) PO daily 09/09/20 18 2018 Inactive Please note dose trazodone 50 mg tablet RxNorm: 877195 1 Tablet(s) PO QHS 09/06/20 18 2018 Inactive sertraline 50 mg tablet RxNorm: 859261 1 Tablet(s) PO daily 09/06/20 18 2017 Inactive amoxicillin 500 mg tablet RxNorm: 664999 1 Tablet(s) PO Q12H 08/31/20 18 2017 Inactive albuterol sulfate 2.5 mg/3 mL (0.083 %) solution for nebulization RxNorm: 852529 1 Vial INH QID 08/10/20 18 2018 Inactive 60/box. Please do not fill early. Please do not auto refill. Prozac 10 mg capsule RxNorm: 490852 1 Capsule(s) PO daily 08/09/20 18 2017 Inactive buspirone 7.5 mg tablet RxNorm: 142756 1 Tablet(s) PO BID 08/09/20 18 2018 Inactive gabapentin 300 mg capsule RxNorm: 858348 1 Capsule(s) PO TID as needed 08/01/20 18 2018 Inactive hydrochlorothiazide 12.5 mg tablet RxNorm: 647977 1 Tablet(s) PO QAM 08/01/20 18 2018 Inactive ranitidine 150 mg tablet RxNorm: 742309 1 Tablet(s) PO BID 08/01/20 18 2018 Inactive Macrobid 100 mg capsule RxNorm: 646147 1 Capsule(s) PO Q12H 06/21/20 18 2017 Inactive Singulair 10 mg tablet RxNorm: 751495 1 Tablet(s) PO daily 06/14/20 18 2018 Inactive Ventolin HFA 90 mcg/actuation aerosol inhaler RxNorm: 9956800 2 Puff(s) INH QID 06/14/20 18 2018 Inactive Singulair 10 mg tablet RxNorm: 787923 1 Tablet(s) PO daily 06/14/20 18 2017 Inactive buspirone 7.5 mg tablet RxNorm: 578492 1 Tablet(s) PO BID 06/14/20 18 2017 Inactive Prozac 10 mg capsule RxNorm: 524555 1 Capsule(s) PO daily 06/14/20 18 2017 Inactive Neilmed Pediatric Sinus Rinse Refill packet RxNorm: 1 Unit Dose NASAL PRN 05/31/20 18 2021 Inactive diclofenac sodium 75 mg tablet,delayed release RxNorm: 032681 1 Tablet(s) PO BID 05/31/20 18 2017 Inactive lisinopril 2.5 mg tablet RxNorm: 160221 1 Tablet(s) PO daily 05/31/20 18 2017 Inactive metoprolol succinate ER 50 mg tablet,extended release 24 hr RxNorm: 399940 1 Tablet(s) PO daily 05/31/20 18 2017 Inactive levothyroxine 50 mcg tablet RxNorm: 772472 1 Tablet(s) PO daily 05/31/20 18 2017 Inactive TRUEplus Lancets 30 gauge RxNorm: 1 Lancets Miscellaneous QAM 05/31/20 18 2017 Inactive 100/box Ventolin HFA 90 mcg/actuation aerosol inhaler RxNorm: 753206 2 Puff(s) INH QID 05/31/20 18 2017 Inactive Aleve 220 mg capsule RxNorm: 5198934 1 Capsule(s) PO BID 05/31/20 18 2018 Inactive ranitidine 150 mg tablet RxNorm: 517886 1 Tablet(s) PO BID 05/31/20 18 2017 Inactive gabapentin 300 mg capsule RxNorm: 889593 1 Capsule(s) PO TID as needed 05/31/20 18 2017 Inactive atorvastatin 20 mg tablet RxNorm: 034339 1 Tablet(s) PO QHS 05/31/20 18 2017 Inactive True Metrix Glucose Test Strip RxNorm: 1 Test Strips Miscellaneous QAM 05/31/20 18 2017 Inactive 50/container Calcium 600-D3 Plus 600 mg calcium-800 unit-50 mg tablet RxNorm: 1 Tablet(s) PO daily take an additonal tablet for itching. 05/31/20 18 2017 Inactive hydrochlorothiazide 12.5 mg tablet RxNorm: 930915 1 Tablet(s) PO QAM 05/31/20 18 2017 Inactive Flintstones Complete (iron) 18 mg iron chewable tablet RxNorm: 1 Tablet(s) PO daily 05/31/20 18 2017 Inactive sertraline 50 mg tablet RxNorm: 937418 1 Tablet(s) PO daily 11/28/19 20 2019 Inactive d-mannose oral powder RxNorm: PO 18 2021 Inactive True Metrix Glucose Meter RxNorm: miscellaneous 08/17/20 19 2018 Inactive loperamide 2 mg tablet RxNorm: 339582 oral 09/29/202018 Inactive Symbicort 160 mcg-4.5 mcg/actuation HFA aerosol inhaler RxNorm: 3820075 2 Puff(s) INH BID 08/17/202018 Inactive Medication Administered No Medication Administered data Procedures Procedure Codes Date [place] Fany Assessment CPT-4: DSWA 10/03 Hypertension CPT-4: HTN 10/17/2019 Fall Risk Assessment SNOMED CT: 66703565 4 CPT-4: DFRA 09/19/2019 Functional Assessment CPT-4: DFA 09/19/2019 Urinalysis, dip stick CPT-4: 82126 06/21/2019 Tobacco Assessment/Screening CPT-4: TCA Patient Health Questionnaire CPT-4: DPHQ AHA/REBECCA Classification Assessment CPT-4: DAHA 04/25/2019 Controlled Substance Report CPT-4: CTRSU 04/03 Urinalysis, dip stick CPT-4: 76514 03/28/2019 Urinalysis, dip stick CPT-4: 11286 03/28/2019 [id number] CPT-4: 60777 Unknown A4H-Nibrywsavgyfmgo CPT-4: 60803 Unknown Gynecology Referral SNOMED CT: 817074012 CPT-4: R14 Unknown Reason For Visit No Reason For Visit data Plan of Care Planned Activity Notes Codes Status Date Patient Education: Patient Medication Summary Completed 11/07/2019 Appointment: Anna Culver WPtel: [address] [place], [place] [id number] 10/17/2019 Appointment: Anna Culver WPtel: [address] [place] [address] E452 09/19/2019 Appointment: Sudha Hernadez WPtel: [address] [place] [address] [id number] 07/04/2019 Appointment: Sudha Hernadez WPtel: [address] [facility] [id number] 06/21/2019 Appointment: Charlene Oropeza WPtel: [address] [facility] b [id number] E452 05/24/2019 Appointment: Mallory Delgado E452 04/27/2019 Appointment: Charlene Oropeza WPtel: [address] [facility] b [id number] E452 04/25/2019 Appointment: Rasta Palafox WPtel: [address] [facility] b [id number] E452 03/28/2019 Appointment: Rasta Palafox WPtel: [address] [facility] [id number] E452 02/14/2019 Appointment: Rasta Palafox WPtel: [address] [facility] b [id number] E452 01/31/2019 Appointment: Rasta Palafox WPtel: [address] [facility] b [id number] E420 12/27/2018 Referral: Pending Gynecology Referral Information Referral Processed Referral: Pending Pulmonolog y Referral Information Referral Processed Referral: Pending Psychiatry Referral Information Referral Initiated Referral: Pending Respirator y Services Referral Information Referral Initiated Referral: Pending Ophthalmology Referral Information Referral Initiated Referral: [facility] WPtel: [address] Beam Carrier Hauler Pusher placed a call out to the patient to notify her that it has been recommended that she be seen by 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 Patient agreed to be seen, does not have a provider of choice and no transportation issues. Beam Carrier Hauler Pusher faxed referral and clinical notes to [facility] in [place], [place] near the patient's home. Patient to [...] seen and prefers a provider in the [place] or [place] area. Beam Carrier Hauler Pusher placed a call out to everyone listed in the area and the only location that was able to accept the patient's insurance was [facility] [address] [place] [address] and spoke with Maylin. Maylin asked that the patient's referral, face sheet and visit notes be faxed to . Beam Carrier Hauler Pusher faxed over requested documents. Patient appointment confirmation letter generated and mailed to her home address. Patient to call to schedule an appointment. Processed Referral: [facility] WPtel: [address] [place] [address] Patient notified that it has been advised that she be seen by Neurology. Patient agreed to be seen and prefers to be seen by a provider in the [place], [place] area. Patient denies any concerns with transportation, and prefers to schedule her own appointment. Beam Carrier Hauler Pusher placed a call out to [facility] and spoke with Neeraj P: who confirmed that their office is able to accept new patients and the patient's insurance. After confirming the providers fax number, designer/writer faxed over the patient's referral, and most [...]
--- OUTSIDE RECORDS SUMMARY | 2023-12-07 02:09 | XMS_ITS | CCD ---
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 Air Conditioning Technician Name Role Phone Palomo KING, Anna Primary Care Provider Unav ailable Unavailable Chronic Care Management Unavaila ble Summary Purpose DataExchange Insurance Providers Payer name Policy type / Coverage type Covered alliance party ID Effective Begin Date Effective End Date [employer] MARIA ESTHER [id number] Unknown Unknown Family history Mother Diagnosis Age [...] Unknown Disability 05/31/[address]: 799937385 Has never s moked or chewed tobacco 05/31/[address]: 664366961 Never drinks alco hol 05/31/2018 Has the [...] ICD-10: Z12.4 ICD-9: V76.2 04/25/2019 Active Other manager long term care (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 [...] Instructions omeprazole 20 mg capsule,delayed release RxNorm: 125830 1 Capsule(s) Oral every day 11/20/19 20 2019 Inactive amoxicillin 250 mg capsule RxNorm: 707227 1 Capsule(s) Oral three times a day 11/07/19 20 2019 Inactive multivitamin with iron-mineral tablet RxNorm: 1 Tablet(s) Oral every day 10/29/19 20 2021 Inactive cetirizine 10 mg tablet RxNorm: 1956792 1 Tablet(s) PO daily 10/20/19 20 2019 Inactive This refill negates all other refills of this medication. Please do not auto refill Singulair 10 mg tablet RxNorm: 099211 1 Tablet(s) PO daily 10/20/19 20 2019 Inactive This refill negates all other refills of this medication gabapentin 300 mg capsule RxNorm: 239288 1 Capsule(s) PO TID 10/20/19 20 2019 Inactive lisinopril 2.5 mg tablet RxNorm: 214776 1 Tablet(s) PO daily 10/20/19 20 2019 Inactive levothyroxine 50 mcg tablet RxNorm: 472395 1 Tablet(s) PO daily 10/20/19 20 2019 Inactive This refill negates all other refills of this medication hydrochlorothiazide 25 mg tablet RxNorm: 509864 1 Tablet(s) Oral every day 10/17/19 20 2019 Inactive fenugreek seed extract 500 mg capsule RxNorm: 1 Capsule(s) Oral three times a day 10/17/19 20 2021 Inactive Alcohol Prep Pads RxNorm: 304762 1 Patch TOP QAM 10/16/19 20 2020 Inactive loperamide 2 mg tablet RxNorm: 441118 1 Tablet(s) Oral as needed take one [...] 2019 Inactive hydrochlorothiazide 25 mg tablet RxNorm: 685978 1 Tablet(s) Oral every day 09/19/20 19 2019 Inactive Sudafed 12 Hour 120 mg tablet,extended release RxNorm: 4219993 1 Tablet(s) Oral every 12 hours as needed 09/11/20 19 2018 Inactive omeprazole 20 mg capsule,delayed release RxNorm: 436213 1 Capsule(s) Oral every day 09/07/20 19 2019 Inactive Sudafed 12 Hour 120 mg tablet,extended release RxNorm: 1772346 1 Tablet(s) Oral every 12 hours as needed 09/04/20 19 2018 Inactive pantoprazole 40 mg tablet,delayed release RxNorm: 181628 1 Tablet(s) Oral every day 08/24/20 19 2018 Inactive discontinue any other H2Blkr. and PPI albuterol sulfate 2.5 mg/3 mL (0.083 %) solution for nebulization RxNorm: 756676 1 Vial Inhalation every four hours as needed as needed for dyspnea 08/17/20 19 2019 Inactive 60/box. This refill negates all other refills of this medication. Please do not fill early. Please do not auto refill. Symbicort 160 mcg-4.5 mcg/actuation HFA aerosol inhaler RxNorm: 4511238 2 Puff(s) INH BID 08/17/20 No Stop Date Active Alcohol Prep Pads RxNorm: 545141 1 Patch TOP QAM 08/17/20 19 2019 Inactive True Metrix Glucose Test Strip RxNorm: 1 Test Strips Miscellaneous QAM 08/09/20 19 2019 Inactive 100/container Ventolin HFA 90 mcg/actuation aerosol inhaler RxNorm: 495190 2 Puff(s) INH QID 08/09/20 19 2019 Inactive Please do not fill early. Please do not auto refill. This refill negates all other refills of this medication atorvastatin 40 mg tablet RxNorm: 917621 1 Tablet(s) Oral every day 07/04/20 19 2019 Inactive levmetamfetamine 50 mg nasal inhaler RxNorm: 1 Unit(s) NASAL Q3-4H Do not use more than every 3 hours or 8 times/24hours 06/26/20 19 2021 Inactive Please do not auto refill. This refill negates all other refills of this medication diclofenac sodium 75 mg tablet,delayed release RxNorm: 769321 1 Tablet(s) PO BID 06/26/20 19 2019 Inactive This refill negates all other refills of this medication buspirone 7.5 mg tablet RxNorm: 510109 1 Tablet(s) PO BID 06/26/20 19 2020 Inactive This refill negates all other refills of this medication hydrochlorothiazide 12.5 mg tablet RxNorm: 349050 1 Tablet(s) PO QAM 06/26/20 19 2019 Inactive Ventolin HFA 90 mcg/actuation aerosol inhaler RxNorm: 045764 2 Puff(s) INH QID 06/26/20 19 2018 Inactive Please do not fill early. Please do not auto refill. This refill negates all other refills of this medication Singulair 10 mg tablet RxNorm: 130450 1 Tablet(s) PO daily 06/26/20 19 2019 Inactive This refill negates all other refills of this medication cetirizine 10 mg tablet RxNorm: 8246104 1 Tablet(s) PO daily 06/26/20 19 2019 Inactive This refill negates all other refills of this medication. Please do not auto refill levothyroxine 50 mcg tablet RxNorm: 138014 1 Tablet(s) PO daily 06/26/20 19 2019 Inactive This refill negates all other refills of this medication ranitidine 150 mg tablet RxNorm: 285971 1 Tablet(s) PO BID 06/26/20 19 2018 Inactive This refill negates all other refills of this medication Calcium 600-D3 Plus (mag-zinc) 600 mg calcium-800 unit-50 mg tablet RxNorm: 1 Tablet(s) PO daily take an additonal tablet for itching. 06/26/20 19 2018 Inactive This refill negates all other refills of this medication albuterol sulfate 2.5 mg/3 mL (0.083 %) solution for nebulization RxNorm: 072047 1 Vial INH QID 06/26/20 19 2018 Inactive 60/box. This refill negates all other refills of this medication. Please do not fill early. Please do not auto refill. lisinopril 2.5 mg tablet RxNorm: 661608 1 Tablet(s) PO daily 06/21/20 19 2019 Inactive gabapentin 300 mg capsule RxNorm: 883147 1 Capsule(s) PO TID 06/21/20 19 2019 Inactive atorvastatin 20 mg tablet RxNorm: 684584 1 Tablet(s) PO QHS 06/07/20 19 2018 Inactive This refill negates all other refills of this medication TRUEplus Lancets 30 gauge RxNorm: 1 Lancets Miscellaneous QAM 05/29/20 19 2018 Inactive 100/box gabapentin 300 mg capsule RxNorm: 160932 1 Capsule(s) PO TID 05/03/20 19 2018 Inactive Flintstones Complete (iron) 18 mg iron chewable tablet RxNorm: 1 Tablet(s) PO daily 04/04/202021 Inactive This refill negates all other refills of this medication gabapentin 300 mg capsule RxNorm: 168725 1 Capsule(s) PO TID as needed 02/01/20 19 2018 Inactive True Metrix Glucose Test Strip RxNorm: 1 Test Strips Miscellaneous QAM 02/01/20 19 2018 Inactive 100/container Alcohol Prep Pads RxNorm: 362000 1 Patch TOP QAM 02/01/20 19 2018 Inactive TRUEplus Lancets 30 gauge RxNorm: 1 Lancets Miscellaneous QAM 02/01/20 19 2018 Inactive 100/box lisinopril 2.5 mg tablet RxNorm: 705304 1 Tablet(s) PO daily 12/28/19 19 2018 Inactive ranitidine 150 mg tablet RxNorm: 749702 1 Tablet(s) PO BID 10/21/19 19 2018 Inactive This refill negates all other refills of this medication albuterol sulfate 2.5 mg/3 mL (0.083 %) solution for nebulization RxNorm: 968929 1 Vial INH QID 10/21/19 19 2018 [...] this medication gabapentin 300 mg capsule RxNorm: 688746 1 Capsule(s) PO TID as needed 10/21/19 19 2018 Inactive atorvastatin 20 mg tablet RxNorm: 582306 1 Tablet(s) PO QHS 10/21/19 19 2018 Inactive This refill negates all other refills of this medication trazodone 50 mg tablet RxNorm: 626295 1 Tablet(s) PO QHS 10/21/19 19 2018 Inactive This refill negates all other refills of this medication Ventolin HFA 90 mcg/actuation aerosol inhaler RxNorm: 825144 2 Puff(s) INH QID 10/21/19 19 2018 Inactive Please do not fill early. Please do not auto refill. This refill negates all other refills of this medication Calcium 600-D3 Plus 600 mg calcium-800 unit-50 mg tablet RxNorm: 1 Tablet(s) PO daily take an additonal tablet for itching. 10/21/192018 Inactive This refill negates all other refills of this medication Singulair 10 mg tablet RxNorm: 850711 1 Tablet(s) PO daily 10/21/19 19 2018 Inactive This refill negates all other refills of this medication buspirone 7.5 mg tablet RxNorm: 591524 1 Tablet(s) PO BID 10/21/192018 Inactive This refill negates all other refills of this medication diclofenac sodium 75 mg tablet,delayed release RxNorm: 256577 1 Tablet(s) PO BID 10/21/192018 Inactive This refill negates all other refills of this medication hydrochlorothiazide 12.5 mg tablet RxNorm: 933107 1 Tablet(s) PO QAM 10/21/192018 Inactive metoprolol succinate ER 50 mg tablet,extended release 24 hr RxNorm: 503907 1 Tablet(s) PO daily 10/21/192018 Inactive This refill negates all other refills of this medication levothyroxine 50 mcg tablet RxNorm: 418207 1 Tablet(s) PO daily 10/21/192018 Inactive This refill negates all other refills of this medication cetirizine 10 mg tablet RxNorm: 1224930 1 Tablet(s) PO daily 10/21/192018 Inactive This refill negates all other refills of this medication. Please do not auto refill Flintstones Complete (iron) 18 mg iron chewable tablet RxNorm: 1 Tablet(s) PO daily 10/21/192018 Inactive This refill negates all other refills of this medication buspirone 7.5 mg tablet RxNorm: 558955 1 Tablet(s) PO BID 10/12/192018 Inactive cetirizine 10 mg tablet RxNorm: 1157627 1 Tablet(s) PO daily 09/28/202018 Inactive Guaiasorb DM 10 mg-100 mg/5 mL oral liquid RxNorm: 564128 10 Milliliter(s) PO As needed every 4 hr 09/24/202018 Inactive Vicks Vaporub 4.7 %-1.2 %-2.6 % topical ointment RxNorm: 8265544 1 Application TOP TID 09/24/20 18 2018 Inactive levmetamfetamine 50 mg nasal inhaler RxNorm: 1 Unit(s) NASAL Q3-4H 09/24/20 18 2017 Inactive sertraline 50 mg tablet RxNorm: 835448 1 Tablet(s) PO daily 09/09/20 18 2018 Inactive Please note dose trazodone 50 mg tablet RxNorm: 183420 1 Tablet(s) PO QHS 09/06/20 18 2018 Inactive sertraline 50 mg tablet RxNorm: 715577 1 Tablet(s) PO daily 09/06/20 18 2017 Inactive amoxicillin 500 mg tablet RxNorm: 826134 1 Tablet(s) PO Q12H 08/31/20 18 2017 Inactive albuterol sulfate 2.5 mg/3 mL (0.083 %) solution for nebulization RxNorm: 602416 1 Vial INH QID 08/10/20 18 2018 Inactive 60/box. Please do not fill early. Please do not auto refill. Prozac 10 mg capsule RxNorm: 343547 1 Capsule(s) PO daily 08/09/20 18 2017 Inactive buspirone 7.5 mg tablet RxNorm: 468686 1 Tablet(s) PO BID 08/09/20 18 2018 Inactive gabapentin 300 mg capsule RxNorm: 268791 1 Capsule(s) PO TID as needed 08/01/20 18 2018 Inactive hydrochlorothiazide 12.5 mg tablet RxNorm: 590724 1 Tablet(s) PO QAM 08/01/20 18 2018 Inactive ranitidine 150 mg tablet RxNorm: 480192 1 Tablet(s) PO BID 08/01/20 18 2018 Inactive Macrobid 100 mg capsule RxNorm: 190735 1 Capsule(s) PO Q12H 06/21/20 18 2017 Inactive Singulair 10 mg tablet RxNorm: 738734 1 Tablet(s) PO daily 06/14/20 18 2018 Inactive Ventolin HFA 90 mcg/actuation aerosol inhaler RxNorm: 6093673 2 Puff(s) INH QID 06/14/20 18 2018 Inactive Singulair 10 mg tablet RxNorm: 301286 1 Tablet(s) PO daily 06/14/20 18 2017 Inactive buspirone 7.5 mg tablet RxNorm: 350989 1 Tablet(s) PO BID 06/14/20 18 2017 Inactive Prozac 10 mg capsule RxNorm: 161403 1 Capsule(s) PO daily 06/14/20 18 2017 Inactive Neilmed Pediatric Sinus Rinse Refill packet RxNorm: 1 Unit Dose NASAL PRN 05/31/20 18 2021 Inactive diclofenac sodium 75 mg tablet,delayed release RxNorm: 122730 1 Tablet(s) PO BID 05/31/20 18 2017 Inactive lisinopril 2.5 mg tablet RxNorm: 385784 1 Tablet(s) PO daily 05/31/20 18 2017 Inactive metoprolol succinate ER 50 mg tablet,extended release 24 hr RxNorm: 745653 1 Tablet(s) PO daily 05/31/20 18 2017 Inactive levothyroxine 50 mcg tablet RxNorm: 770586 1 Tablet(s) PO daily 05/31/20 18 2017 Inactive TRUEplus Lancets 30 gauge RxNorm: 1 Lancets Miscellaneous QAM 05/31/20 18 2017 Inactive 100/box Ventolin HFA 90 mcg/actuation aerosol inhaler RxNorm: 427316 2 Puff(s) INH QID 05/31/20 18 2017 Inactive Aleve 220 mg capsule RxNorm: 7050444 1 Capsule(s) PO BID 05/31/20 18 2018 Inactive ranitidine 150 mg tablet RxNorm: 356657 1 Tablet(s) PO BID 05/31/20 18 2017 Inactive gabapentin 300 mg capsule RxNorm: 611775 1 Capsule(s) PO TID as needed 05/31/20 18 2017 Inactive atorvastatin 20 mg tablet RxNorm: 799511 1 Tablet(s) PO QHS 05/31/20 18 2017 Inactive True Metrix Glucose Test Strip RxNorm: 1 Test Strips Miscellaneous QAM 05/31/20 18 2017 Inactive 50/container Calcium 600-D3 Plus 600 mg calcium-800 unit-50 mg tablet RxNorm: 1 Tablet(s) PO daily take an additonal tablet for itching. 05/31/20 18 2017 Inactive hydrochlorothiazide 12.5 mg tablet RxNorm: 556730 1 Tablet(s) PO QAM 05/31/20 18 2017 Inactive Flintstones Complete (iron) 18 mg iron chewable tablet RxNorm: 1 Tablet(s) PO daily 05/31/20 18 2017 Inactive sertraline 50 mg tablet RxNorm: 128669 1 Tablet(s) PO daily 11/28/19 20 2019 Inactive d-mannose oral powder RxNorm: PO 18 2021 Inactive True Metrix Glucose Meter RxNorm: miscellaneous 08/17/20 19 2018 Inactive loperamide 2 mg tablet RxNorm: 329955 oral 09/29/202018 Inactive Symbicort 160 mcg-4.5 mcg/actuation HFA aerosol inhaler RxNorm: 0246697 2 Puff(s) INH BID 08/17/202018 Inactive Medication Administered No Medication Administered data Procedures Procedure Codes Date Irving Fany Assessment CPT-4: DSWA 10/03 Hypertension CPT-4: HTN 10/17/2019 Fall Risk Assessment SNOMED CT: 44841951 4 CPT-4: DFRA 09/19/2019 Functional Assessment CPT-4: DFA 09/19/2019 Urinalysis, dip stick CPT-4: 52156 06/21/2019 Tobacco Assessment/Screening CPT-4: TCA Patient Health Questionnaire CPT-4: DPHQ AHA/REBECCA Classification Assessment CPT-4: DAHA 04/25/2019 Controlled Substance Report CPT-4: CTRSU 04/03 Urinalysis, dip stick CPT-4: 40941 03/28/2019 Urinalysis, dip stick CPT-4: 63012 03/28/2019 [id number] CPT-4: 50905 Unknown [id number] CPT-4: 95916 Unknown Gynecology Referral SNOMED CT: 332480131 CPT-4: R14 Unknown Reason For Visit No Reason For Visit data Plan of Care Planned Activity Notes Codes Status Date Referral: Pending Gynecology Referral Information Referral Processed Referral: Pending Pulmonolog y Referral Information Referral Processed Referral: Pending Psychiatry Referral Information Referral Initiated Referral: Pending Respirator y Services Referral Information Referral Initiated Referral: Pending Ophthalmol ogy Referral Information Referral Initiated Referral: [facility] WPtel: [address] [place] [address] [address] [place] [address] [place] Survey Supervisor placed a call out to the patient to notify her that it has been recommended that she be seen by 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 Patient agreed to be seen, does not have a provider of choice and no transportation issues. Survey Supervisor faxed referral and clinical notes to [facility] in [place], [place] near the patient's home. Patient to [...] and prefers a provider in the [place] or [place] area. Survey Supervisor placed a call out to everyone listed in the area and the only location that was able to accept the patient's insurance was [facility] [place] [address] [place] [address] and spoke with Maylin. Maylin asked that the patient's referral, face sheet and visit notes be faxed to . Survey Supervisor faxed over requested documents. Patient appointment confirmation letter generated and mailed to her home address. Patient to call to schedule an appointment. Processed [facility]erral: [facility] WPtel: [address] [place], [place] [id number] Patient notified that it has been advised that she be seen by Neurology. Patient agreed to be seen and prefers to be seen by a provider in the [place], [place] area. Patient denies any concerns with transportation, and prefers to schedule her own appointment. Survey Supervisor placed a call out to Diley [...]
--- OUTSIDE RECORDS SUMMARY | 2023-12-07 02:09 | XMS_ITS | CCD ---
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 Byproducts Maker Name Role Phone Palomo KING, Anna Primary Care Provider Unav ailable Unavailable Chronic Care Management Unavaila ble Summary Purpose DataExchange Insurance Providers Payer name Policy type / Coverage type Covered libertarian ID Effective Begin Date Effective End Date SUKI [employer]TS MARIA ESTHER [id number] Unknown Unknown Family history Mother Diagnosis Age [...] Unknown Disability 05/31/[address]: 746936208 Has never s moked or chewed tobacco 05/31/[address]: 448644198 Never drinks alco hol 05/31/2018 Has the [...] ICD-10: Z12.4 ICD-9: V76.2 04/25/2019 Active Other rn long term care (current) dr edith therapy ICD-10: Z79.899 [...] R51 ICD-9: 784.0 10/03/2018 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 non-steroidal anti-inflammatories (NSAID) ICD-10: Z79.1 ICD-9: V58.64 06/13/2018 Active Medications Medication Codes Instructions Start Date Stop Date Status Fill Instructions hydrochlorothiazide 25 mg tablet RxNorm: 807032 1 Tablet(s) Oral every day 12/21/19 20 2019 Inactive Sudafed 12 Hour 120 mg tablet,extended release RxNorm: 0481367 TAKE (1) TABLET BY MOUTH EVERY 12 HOURS NEEDED 12/21/19 20 2019 Inactive loperamide 2 mg tablet RxNorm: 192771 1 Tablet(s) Oral as needed take one tablet after each loose stool, maximum of 8 tablets in 24 hours 12/11/19 20 2019 Inactive loperamide 2 mg tablet RxNorm: 726490 1 Tablet(s) Oral as needed take one tablet after each loose stool, maximum of 8 tablets in 24 hours 12/11/19 20 2019 Inactive atorvastatin 40 mg tablet RxNorm: 469820 1 Tablet(s) Oral every day 11/29/19 20 2020 Inactive quetiapine 100 mg tablet RxNorm: 051197 1 Tablet(s) Oral every night at bedtime 11/28/19 20 2019 Inactive sertraline 100 mg tablet RxNorm: 385927 1 Tablet(s) Oral 11/28/19 20 2019 Inactive omeprazole 20 mg capsule,delayed release RxNorm: 418694 1 Capsule(s) Oral every day 11/20/19 20 2019 Inactive amoxicillin 250 mg capsule RxNorm: 571399 1 Capsule(s) Oral three times a day 11/07/19 20 2019 Inactive multivitamin with iron-mineral tablet RxNorm: 1 Tablet(s) Oral every day 10/29/19 20 2021 Inactive cetirizine 10 mg tablet RxNorm: 5416625 1 Tablet(s) PO daily 10/20/19 20 2019 Inactive This refill negates all other refills of this medication. Please do not auto refill Singulair 10 mg tablet RxNorm: 119609 1 Tablet(s) PO daily 10/20/19 20 2019 Inactive This refill negates all other refills of this medication gabapentin 300 mg capsule RxNorm: 797587 1 Capsule(s) PO TID 10/20/19 20 2019 Inactive lisinopril 2.5 mg tablet RxNorm: 477957 1 Tablet(s) PO daily 10/20/19 20 2019 Inactive levothyroxine 50 mcg tablet RxNorm: 081427 1 Tablet(s) PO daily 10/20/19 20 2019 Inactive This refill negates all other refills of this medication fenugreek seed extract 500 mg capsule RxNorm: 1 Capsule(s) Oral three times a day 10/17/19 20 2021 Inactive hydrochlorothiazide 25 mg tablet RxNorm: 082493 1 Tablet(s) Oral every day 10/17/19 20 2019 Inactive Alcohol Prep Pads RxNorm: 128465 1 Patch TOP QAM 01/14/2020 Inactive loperamide 2 mg tablet RxNorm: 123941 1 Tablet(s) Oral as needed take one [...] 2019 Inactive hydrochlorothiazide 25 mg tablet RxNorm: 830922 1 Tablet(s) Oral every day 09/19/202019 Inactive Sudafed 12 Hour 120 mg tablet,extended release RxNorm: 0215183 1 Tablet(s) Oral every 12 hours as needed 09/11/20 19 2018 Inactive omeprazole 20 mg capsule,delayed release RxNorm: 395585 1 Capsule(s) Oral every day 09/07/20 19 2019 Inactive Sudafed 12 Hour 120 mg tablet,extended release RxNorm: 9883093 1 Tablet(s) Oral every 12 hours as needed 09/04/20 19 2018 Inactive pantoprazole 40 mg tablet,delayed release RxNorm: 881256 1 Tablet(s) Oral every day 08/24/20 19 2018 Inactive discontinue any other H2Blkr. and PPI albuterol sulfate 2.5 mg/3 mL (0.083 %) solution for nebulization RxNorm: 694143 1 Vial Inhalation every four hours as needed as needed for dyspnea 08/17/202019 Inactive 60/box. This refill negates all other refills of this medication. Please do not fill early. Please do not auto refill. Symbicort 160 mcg-4.5 mcg/actuation HFA aerosol inhaler RxNorm: 3310054 2 Puff(s) INH BID 08/17/20 19 No Stop Date Active Alcohol Prep Pads RxNorm: 347695 1 Patch TOP QAM 08/17/20 19 2019 Inactive True Metrix Glucose Test Strip RxNorm: 1 Test Strips Miscellaneous QAM 08/09/20 19 2019 Inactive 100/container Ventolin HFA 90 mcg/actuation aerosol inhaler RxNorm: 129513 2 Puff(s) INH QID 08/09/20 19 2019 Inactive Please do not fill early. Please do not auto refill. This refill negates all other refills of this medication atorvastatin 40 mg tablet RxNorm: 292844 1 Tablet(s) Oral every day 07/04/20 19 2019 Inactive levmetamfetamine 50 mg nasal inhaler RxNorm: 1 Unit(s) NASAL Q3-4H Do not use more than every 3 hours or 8 times/24hours 06/26/20 19 2021 Inactive Please do not auto refill. This refill negates all other refills of this medication diclofenac sodium 75 mg tablet,delayed release RxNorm: 945712 1 Tablet(s) PO BID 06/26/20 19 2019 Inactive This refill negates all other refills of this medication buspirone 7.5 mg tablet RxNorm: 857992 1 Tablet(s) PO BID 06/26/20 19 2020 Inactive This refill negates all other refills of this medication hydrochlorothiazide 12.5 mg tablet RxNorm: 604823 1 Tablet(s) PO QAM 06/26/20 19 2019 Inactive Ventolin HFA 90 mcg/actuation aerosol inhaler RxNorm: 309528 2 Puff(s) INH QID 06/26/20 19 2018 Inactive Please do not fill early. Please do not auto refill. This refill negates all other refills of this medication Singulair 10 mg tablet RxNorm: 460801 1 Tablet(s) PO daily 06/26/20 19 2019 Inactive This refill negates all other refills of this medication cetirizine 10 mg tablet RxNorm: 6578954 1 Tablet(s) PO daily 06/26/20 2019 Inactive This refill negates all other refills of this medication. Please do not auto refill levothyroxine 50 mcg tablet RxNorm: 811603 1 Tablet(s) PO daily 06/26/202019 Inactive This refill negates all other refills of this medication ranitidine 150 mg tablet RxNorm: 473113 1 Tablet(s) PO BID 06/26/20 19 2018 Inactive This refill negates all other refills of this medication Calcium 600-D3 Plus (mag-zinc) 600 mg calcium-800 unit-50 mg tablet RxNorm: 1 Tablet(s) PO daily take an additonal tablet for itching. 06/26/20 19 2018 Inactive This refill negates all other refills of this medication albuterol sulfate 2.5 mg/3 mL (0.083 %) solution for nebulization RxNorm: 431675 1 Vial INH QID 06/26/202018 Inactive 60/box. This refill negates all other refills of this medication. Please do not fill early. Please do not auto refill. lisinopril 2.5 mg tablet RxNorm: 832502 1 Tablet(s) PO daily 06/21/20 19 2019 Inactive gabapentin 300 mg capsule RxNorm: 284779 1 Capsule(s) PO TID 06/21/20 19 2019 Inactive atorvastatin 20 mg tablet RxNorm: 033697 1 Tablet(s) PO QHS 06/07/202018 Inactive This refill negates all other refills of this medication TRUEplus Lancets 30 gauge RxNorm: 1 Lancets Miscellaneous QAM 05/29/20 19 2018 Inactive 100/box gabapentin 300 mg capsule RxNorm: 698026 1 Capsule(s) PO TID 05/03/20 19 2018 Inactive Flintstones Complete (iron) 18 mg iron chewable tablet RxNorm: 1 Tablet(s) PO daily 04/04/20 19 2021 Inactive This refill negates all other refills of this medication gabapentin 300 mg capsule RxNorm: 840126 1 Capsule(s) PO TID as needed 02/01/20 19 2018 Inactive True Metrix Glucose Test Strip RxNorm: 1 Test Strips Miscellaneous QA 02/01/20 19 2018 Inactive 100/container Alcohol Prep Pads RxNorm: 655980 1 Patch TOP [facility] 02/01/20 19 2018 Inactive TRUEplus Lancets 30 gauge RxNorm: 1 Lancets Miscellaneous QA 02/01/20 19 2018 Inactive 100/box lisinopril 2.5 mg tablet RxNorm: 685944 1 Tablet(s) PO daily 12/28/19 19 2018 Inactive ranitidine 150 mg tablet RxNorm: 296074 1 Tablet(s) PO BID 10/21/192018 Inactive This refill negates all other refills of this medication albuterol sulfate 2.5 mg/3 mL (0.083 %) solution for nebulization RxNorm: 017729 1 Vial INH QID 10/21/192018 Inactive 60/box. [...] this medication gabapentin 300 mg capsule RxNorm: 838198 1 Capsule(s) PO TID as needed 10/21/192018 Inactive atorvastatin 20 mg tablet RxNorm: 819838 1 Tablet(s) PO QHS 10/21/19 19 2018 Inactive This refill negates all other refills of this medication trazodone 50 mg tablet RxNorm: 254261 1 Tablet(s) PO QHS 10/21/19 19 2018 Inactive This refill negates all other refills of this medication Ventolin HFA 90 mcg/actuation aerosol inhaler RxNorm: 389606 2 Puff(s) INH QID 10/21/19 19 2018 [...] this medication Singulair 10 mg tablet RxNorm: 386846 1 Tablet(s) PO daily 10/21/192018 Inactive This refill negates all other refills of this medication buspirone 7.5 mg tablet RxNorm: 959738 1 Tablet(s) PO BID 10/21/19 19 2018 Inactive This refill negates all other refills of this medication diclofenac sodium 75 mg tablet,delayed release RxNorm: 171400 1 Tablet(s) PO BID 10/21/19 19 2018 Inactive This refill negates all other refills of this medication hydrochlorothiazide 12.5 mg tablet RxNorm: 880718 1 Tablet(s) PO QAM 10/21/192018 Inactive metoprolol succinate ER 50 mg tablet,extended release 24 hr RxNorm: 519707 1 Tablet(s) PO daily 10/21/192018 Inactive This refill negates all other refills of this medication levothyroxine 50 mcg tablet RxNorm: 039768 1 Tablet(s) PO daily 10/21/192018 Inactive This refill negates all other refills of this medication cetirizine 10 mg tablet RxNorm: 7333170 1 Tablet(s) PO daily 10/21/192018 Inactive This refill negates all other refills of this medication. Please do not auto refill Flintstones Complete (iron) 18 mg iron chewable tablet RxNorm: 1 Tablet(s) PO daily 10/21/192018 Inactive This refill negates all other refills of this medication buspirone 7.5 mg tablet RxNorm: 428517 1 Tablet(s) PO BID 10/12/19 19 2018 Inactive cetirizine 10 mg tablet RxNorm: 5795511 1 Tablet(s) PO daily 09/28/20 18 2018 Inactive Guaiasorb DM 10 mg-100 mg/5 mL oral liquid RxNorm: 699154 10 Milliliter(s) PO As needed every 4 hr 09/24/20 18 2018 Inactive Vicks Vaporub 4.7 %-1.2 %-2.6 % topical ointment RxNorm: 2618433 1 Application TOP TID 09/24/20 18 2018 Inactive levmetamfetamine 50 mg nasal inhaler RxNorm: 1 Unit(s) NASAL Q3-4H 09/24/20 18 2017 Inactive sertraline 50 mg tablet RxNorm: 074949 1 Tablet(s) PO daily 09/09/20 18 2018 Inactive Please note dose trazodone 50 mg tablet RxNorm: 248538 1 Tablet(s) PO QHS 09/06/20 18 2018 Inactive sertraline 50 mg tablet RxNorm: 179847 1 Tablet(s) PO daily 09/06/20 18 2017 Inactive amoxicillin 500 mg tablet RxNorm: 314665 1 Tablet(s) PO Q12H 08/31/20 18 2017 Inactive albuterol sulfate 2.5 mg/3 mL (0.083 %) solution for nebulization RxNorm: 520851 1 Vial INH QID 08/10/20 18 2018 Inactive 60/box. Please do not fill early. Please do not auto refill. Prozac 10 mg capsule RxNorm: 512666 1 Capsule(s) PO daily 08/09/20 18 2017 Inactive buspirone 7.5 mg tablet RxNorm: 063646 1 Tablet(s) PO BID 08/09/20 18 2018 Inactive gabapentin 300 mg capsule RxNorm: 908630 1 Capsule(s) PO TID as needed 08/01/202018 Inactive hydrochlorothiazide 12.5 mg tablet RxNorm: 908582 1 Tablet(s) PO QAM 08/01/20 18 2018 Inactive ranitidine 150 mg tablet RxNorm: 560672 1 Tablet(s) PO BID 08/01/20 18 2018 Inactive Macrobid 100 mg capsule RxNorm: 730432 1 Capsule(s) PO Q12H 06/21/20 18 2017 Inactive Singulair 10 mg tablet RxNorm: 161736 1 Tablet(s) PO daily 06/14/20 18 2018 Inactive Ventolin HFA 90 mcg/actuation aerosol inhaler RxNorm: 5116718 2 Puff(s) INH QID 06/14/20 18 2018 Inactive Singulair 10 mg tablet RxNorm: 265805 1 Tablet(s) PO daily 06/14/20 18 2017 Inactive buspirone 7.5 mg tablet RxNorm: 925128 1 Tablet(s) PO BID 06/14/20 18 2017 Inactive Prozac 10 mg capsule RxNorm: 722279 1 Capsule(s) PO daily 06/14/20 18 2017 Inactive Neilmed Pediatric Sinus Rinse Refill packet RxNorm: 1 Unit Dose NASAL PRN 05/31/20 18 2021 Inactive diclofenac sodium 75 mg tablet,delayed release RxNorm: 838405 1 Tablet(s) PO BID 05/31/20 18 2017 Inactive lisinopril 2.5 mg tablet RxNorm: 304977 1 Tablet(s) PO daily 05/31/20 18 2017 Inactive metoprolol succinate ER 50 mg tablet,extended release 24 hr RxNorm: 373198 1 Tablet(s) PO daily 05/31/20 18 2017 Inactive levothyroxine 50 mcg tablet RxNorm: 119098 1 Tablet(s) PO daily 05/31/20 18 2017 Inactive TRUEplus Lancets 30 gauge RxNorm: 1 Lancets Miscellaneous QAM 05/31/20 18 2017 Inactive 100/box Ventolin HFA 90 mcg/actuation aerosol inhaler RxNorm: 616205 2 Puff(s) INH QID 05/31/20 18 2017 Inactive Aleve 220 mg capsule RxNorm: 8386093 1 Capsule(s) PO BID 05/31/20 18 2018 Inactive ranitidine 150 mg tablet RxNorm: 997947 1 Tablet(s) PO BID 05/31/20 18 2017 Inactive gabapentin 300 mg capsule RxNorm: 974878 1 Capsule(s) PO TID as needed 05/31/20 18 2017 Inactive atorvastatin 20 mg tablet RxNorm: 759855 1 Tablet(s) PO QHS 05/31/20 18 2017 Inactive True Metrix Glucose Test Strip RxNorm: [facility] 05/31/20 18 2017 Inactive 50/container Calcium 600-D3 Plus 600 mg calcium-800 unit-50 mg tablet RxNorm: 1 Tablet(s) PO daily take an additonal tablet for itching. 05/31/20 18 2017 Inactive hydrochlorothiazide 12.5 mg tablet RxNorm: 040789 1 Tablet(s) PO QAM 05/31/20 18 2017 Inactive Flintstones Complete (iron) 18 mg iron chewable tablet RxNorm: 1 Tablet(s) PO daily 05/31/20 18 2017 Inactive d-mannose oral powder RxNorm: PO 18 2021 Inactive True Metrix Glucose Meter RxNorm: miscellaneous 08/17/20 19 2018 Inactive sertraline 50 mg tablet RxNorm: 001197 1 Tablet(s) PO daily 11/28/19 20 2019 Inactive loperamide 2 mg tablet RxNorm: 898640 oral 09/29/20 19 2018 Inactive Symbicort 160 mcg-4.5 mcg/actuation HFA aerosol inhaler RxNorm: 5494396 2 Puff(s) INH BID 08/17/20 19 2018 Inactive Medication Administered No Medication Administered data Procedures Procedure Codes Date Romance Fany Assessment CPT-4: DSWA 11/04 Patient Health Questionnaire CPT-4: DPHQ Romance Fany Assessment CPT-4: DSWA 10/03 Hypertension CPT-4: HTN 10/17/2019 [id number] CPT-4: DFRA 09/19/2019 Functional Assessment CPT-4: DFA 09/19/2019 Urinalysis, dip stick CPT-4: 75863 06/21/2019 Tobacco Assessment/Screening CPT-4: TCA Patient Health Questionnaire CPT-4: DPHQ AHA/REBECCA Classification Assessment CPT-4: DAHA 04/25/2019 Controlled Substance Report CPT-4: CTRSU 04/03 Urinalysis, dip stick CPT-4: 17672 03/28/2019 Urinalysis, dip stick CPT-4: 37734 03/28/2019 [id number] CPT-4: 10582 Unknown [id number] CPT-4: 97053 Unknown Gynecology Referral SNOMED CT: 679477619 CPT-4: R14 Unknown Reason For Visit No Reason For Visit data Plan of Care Planned Activity Notes Codes Status Date Referral: Pending Gynecology Referral Information Referral Processed Referral: Pending Pulmonolog y Referral Information Referral Processed Referral: Pending Psychiatry Referral Information Referral Initiated Referral: Pending Respirator y Services Referral Information Referral Initiated Referral: Pending Ophthalmol ogy Referral Information Referral Initiated Referral: [facility] WPtel: [address] [place] [address] Manufacturing Support Engineer placed a call out to the patient to notify her that it has been recommended that she be seen by 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 Patient agreed to be seen, does not have a provider of choice and no transportation issues. Manufacturing Support Engineer faxed referral and clinical notes to [facility] in [place], [place] near the patient's home. Patient to [...] seen and prefers a provider in the [place] or [place] area. Manufacturing Support Engineer placed a call out to everyone listed in the area and the only location that was able to accept the patient's insurance was [place] [address] [place] [address] and spoke with Maylin. Maylin asked that the patient's referral, face sheet and visit notes be faxed to . Manufacturing Support Engineer faxed over requested documents. Patient appointment confirmation letter generated and mailed to her home address. Patient to call to schedule an appointment. [facility] [address] [facility] [address] [place], [place] [id number] Patient notified that it has been advised that she be seen by Neurology. Patient agreed to be seen and prefers to be seen by a provider in the [place], [place] area. Patient denies any concerns with transportation, and prefers to schedule her own appointment. Manufacturing Support Engineer placed a call out to [facility] [...]
--- OUTSIDE RECORDS SUMMARY | 2023-12-07 02:09 | XMS_ITS | CCD ---
Author Name Leena Culver NP Address [id number] [place] [address] [address] [place] [address] Phone Organization [facility] Phone Care Team Providers Care Aesthetics Instructor Name Role Phone Anna Culver NP Primary Care Provider Unav ailable Unavailable Chronic Care Management Unavaila ble Summary Purpose DataExchange Insurance Providers Payer name Policy type / Coverage type Covered green party ID Effective Begin Date Effective End Date SUKI MAYO [id number] Unknown Unknown Family history Mother Diagnosis Age [...] Unknown Disability 05/31/[address]: 259836401 Has never s moked or chewed tobacco 05/31/[address]: 916136703 Never drinks alco hol 05/31/2018 Has the [...] ICD-10: Z12.4 ICD-9: V76.2 04/25/2019 Active Other technician terminal and repeater (current) dr edith therapy ICD-10: Z79.899 ICD-9: [...] Headache ICD-10: R51 ICD-9: 784.0 10/03/2018 Active shelter (current) use of non-steroidal anti-inflammatories (NSAID) ICD-10: Z79.1 ICD-9: V58.64 06/13/2018 Active Medications Medication Codes Instructions Start Date Stop Date Status Fill Instructions loperamide 2 mg tablet RxNorm: 593824 1 Tablet(s) Oral as needed take one tablet after each loose stool, maximum of 8 tablets in 24 hours 12/11/19 20 2019 Inactive loperamide 2 mg tablet RxNorm: 008966 1 Tablet(s) Oral as needed take one tablet after each loose stool, maximum of 8 tablets in 24 hours 12/11/19 20 2019 Inactive atorvastatin 40 mg tablet RxNorm: 865310 1 Tablet(s) Oral every day 11/29/19 20 2020 Inactive quetiapine 100 mg tablet RxNorm: 508593 1 Tablet(s) Oral every night at bedtime 11/28/19 20 2019 Inactive sertraline 100 mg tablet RxNorm: 406263 1 Tablet(s) Oral 11/28/19 20 2019 Inactive omeprazole 20 mg capsule,delayed release RxNorm: 235412 1 Capsule(s) Oral every day 11/20/19 20 2019 Inactive amoxicillin 250 mg capsule RxNorm: 966894 1 Capsule(s) Oral three times a day 11/07/19 20 2019 Inactive multivitamin with iron-mineral tablet RxNorm: 1 Tablet(s) Oral every day 10/29/19 20 2021 Inactive cetirizine 10 mg tablet RxNorm: 6904715 1 Tablet(s) PO daily 10/20/19 20 2019 Inactive This refill negates all other refills of this medication. Please do not auto refill Singulair 10 mg tablet RxNorm: 201677 1 Tablet(s) PO daily 10/20/192019 Inactive This refill negates all other refills of this medication gabapentin 300 mg capsule RxNorm: 449818 1 Capsule(s) PO TID 10/20/19 20 2019 Inactive lisinopril 2.5 mg tablet RxNorm: 784949 1 Tablet(s) PO daily 10/20/19 20 2019 Inactive levothyroxine 50 mcg tablet RxNorm: 669596 1 Tablet(s) PO daily 10/20/192019 Inactive This refill negates all other refills of this medication hydrochlorothiazide 25 mg tablet RxNorm: 998687 1 Tablet(s) Oral every day 10/17/192019 Inactive fenugreek seed extract 500 mg capsule RxNorm: 1 Capsule(s) Oral three times a day 10/17/192021 Inactive Alcohol Prep Pads RxNorm: 713173 1 Patch TOP QAM 10/16/192020 Inactive loperamide 2 mg tablet RxNorm: 045081 1 Tablet(s) Oral as needed take one [...] 2019 Inactive hydrochlorothiazide 25 mg tablet RxNorm: 898313 1 Tablet(s) Oral every day 09/19/20 19 2019 Inactive Sudafed 12 Hour 120 mg tablet,extended release RxNorm: 6063355 1 Tablet(s) Oral every 12 hours as needed 09/11/20 19 2018 Inactive omeprazole 20 mg capsule,delayed release RxNorm: 413846 1 Capsule(s) Oral every day 09/07/20 19 2019 Inactive Sudafed 12 Hour 120 mg tablet,extended release RxNorm: 1716730 1 Tablet(s) Oral every 12 hours as needed 09/04/20 19 2018 Inactive pantoprazole 40 mg tablet,delayed release RxNorm: 626071 1 Tablet(s) Oral every day 08/24/202018 Inactive discontinue any other H2Blkr. and PPI albuterol sulfate 2.5 mg/3 mL (0.083 %) solution for nebulization RxNorm: 548820 1 Vial Inhalation every four hours as needed as needed for dyspnea 08/17/202019 Inactive 60/box. This refill negates all other refills of this medication. Please do not fill early. Please do not auto refill. Symbicort 160 mcg-4.5 mcg/actuation HFA aerosol inhaler RxNorm: 9749101 2 Puff(s) INH BID 08/17/20 No Stop Date Active Alcohol Prep Pads RxNorm: 733885 1 Patch TOP QAM 08/17/20 19 2019 Inactive True Metrix Glucose Test Strip RxNorm: 1 Test Strips Miscellaneous QAM 08/09/20 19 2019 Inactive 100/container Ventolin HFA 90 mcg/actuation aerosol inhaler RxNorm: 997464 2 Puff(s) INH QID 08/09/20 19 2019 Inactive Please do not fill early. Please do not auto refill. This refill negates all other refills of this medication atorvastatin 40 mg tablet RxNorm: 538924 1 Tablet(s) Oral every day 07/04/20 19 2019 Inactive levmetamfetamine 50 mg nasal inhaler RxNorm: 1 Unit(s) NASAL Q3-4H Do not use more than every 3 hours or 8 times/24hours 06/26/20 19 2021 Inactive Please do not auto refill. This refill negates all other refills of this medication diclofenac sodium 75 mg tablet,delayed release RxNorm: 456190 1 Tablet(s) PO BID 06/26/20 19 2019 Inactive This refill negates all other refills of this medication buspirone 7.5 mg tablet RxNorm: 686884 1 Tablet(s) PO BID 06/26/20 19 2020 Inactive This refill negates all other refills of this medication hydrochlorothiazide 12.5 mg tablet RxNorm: 776639 1 Tablet(s) PO QAM 06/26/20 19 2019 Inactive Ventolin HFA 90 mcg/actuation aerosol inhaler RxNorm: 643046 2 Puff(s) INH QID 06/26/20 19 2018 Inactive Please do not fill early. Please do not auto refill. This refill negates all other refills of this medication Singulair 10 mg tablet RxNorm: 625636 1 Tablet(s) PO daily 06/26/20 19 2019 Inactive This refill negates all other refills of this medication cetirizine 10 mg tablet RxNorm: 8662022 1 Tablet(s) PO daily 06/26/20 19 2019 Inactive This refill negates all other refills of this medication. Please do not auto refill levothyroxine 50 mcg tablet RxNorm: 178307 1 Tablet(s) PO daily 06/26/20 19 2019 Inactive This refill negates all other refills of this medication ranitidine 150 mg tablet RxNorm: 451135 1 Tablet(s) PO BID 06/26/20 19 2018 Inactive This refill negates all other refills of this medication Calcium 600-D3 Plus (mag-zinc) 600 mg calcium-800 unit-50 mg tablet RxNorm: 1 Tablet(s) PO daily take an additonal tablet for itching. 06/26/20 19 2018 Inactive This refill negates all other refills of this medication albuterol sulfate 2.5 mg/3 mL (0.083 %) solution for nebulization RxNorm: 568875 1 Vial INH QID 06/26/20 19 2018 Inactive 60/box. This refill negates all other refills of this medication. Please do not fill early. Please do not auto refill. lisinopril 2.5 mg tablet RxNorm: 272508 1 Tablet(s) PO daily 06/21/20 19 2019 Inactive gabapentin 300 mg capsule RxNorm: 766263 1 Capsule(s) PO TID 06/21/20 19 2019 Inactive atorvastatin 20 mg tablet RxNorm: 181705 1 Tablet(s) PO QHS 06/07/20 19 2018 Inactive This refill negates all other refills of this medication TRUEplus Lancets 30 gauge RxNorm: 1 Lancets Miscellaneous QAM 05/29/20 19 2018 Inactive 100/box gabapentin 300 mg capsule RxNorm: 332600 1 Capsule(s) PO TID 05/03/20 19 2018 Inactive Flintstones Complete (iron) 18 mg iron chewable tablet RxNorm: 1 Tablet(s) PO daily 04/04/20 19 2021 Inactive This refill negates all other refills of this medication gabapentin 300 mg capsule RxNorm: 767129 1 Capsule(s) PO TID as needed 02/01/20 19 2018 Inactive True Metrix Glucose Test Strip RxNorm: 1 Test Strips Miscellaneous QAM 02/01/20 19 2018 Inactive 100/container Alcohol Prep Pads RxNorm: 151187 1 Patch TOP QAM 02/01/20 19 2018 Inactive TRUEplus Lancets 30 gauge RxNorm: 1 Lancets Miscellaneous QAM 02/01/20 19 2018 Inactive 100/box lisinopril 2.5 mg tablet RxNorm: 032040 1 Tablet(s) PO daily 12/28/19 19 2018 Inactive ranitidine 150 mg tablet RxNorm: 831942 1 Tablet(s) PO BID 10/21/192018 Inactive This refill negates all other refills of this medication albuterol sulfate 2.5 mg/3 mL (0.083 %) solution for nebulization RxNorm: 266342 1 Vial INH QID 10/21/192018 Inactive 60/box. [...] this medication gabapentin 300 mg capsule RxNorm: 714051 1 Capsule(s) PO TID as needed 10/21/19 19 2018 Inactive atorvastatin 20 mg tablet RxNorm: 052557 1 Tablet(s) PO QHS 10/21/19 19 2018 Inactive This refill negates all other refills of this medication trazodone 50 mg tablet RxNorm: 109851 1 Tablet(s) PO QHS 10/21/19 19 2018 Inactive This refill negates all other refills of this medication Ventolin HFA 90 mcg/actuation aerosol inhaler RxNorm: 045165 2 Puff(s) INH QID 10/21/192018 Inactive Please do not fill early. Please do not auto refill. This refill negates all other refills of this medication Calcium 600-D3 Plus 600 mg calcium-800 unit-50 mg tablet RxNorm: 1 Tablet(s) PO daily take an additonal tablet for itching. 10/21/19 19 2018 Inactive This refill negates all other refills of this medication Singulair 10 mg tablet RxNorm: 814378 1 Tablet(s) PO daily 10/21/19 19 2018 Inactive This refill negates all other refills of this medication buspirone 7.5 mg tablet RxNorm: 101062 1 Tablet(s) PO BID 10/21/19 19 2018 Inactive This refill negates all other refills of this medication diclofenac sodium 75 mg tablet,delayed release RxNorm: 401278 1 Tablet(s) PO BID 10/21/19 19 2018 Inactive This refill negates all other refills of this medication hydrochlorothiazide 12.5 mg tablet RxNorm: 165871 1 Tablet(s) PO QAM 10/21/19 19 2018 Inactive metoprolol succinate ER 50 mg tablet,extended release 24 hr RxNorm: 704659 1 Tablet(s) PO daily 10/21/19 19 2018 Inactive This refill negates all other refills of this medication levothyroxine 50 mcg tablet RxNorm: 730811 1 Tablet(s) PO daily 10/21/19 19 2018 Inactive This refill negates all other refills of this medication cetirizine 10 mg tablet RxNorm: 3802238 1 Tablet(s) PO daily 10/21/19 19 2018 Inactive This refill negates all other refills of this medication. Please do not auto refill Flintstones Complete (iron) 18 mg iron chewable tablet RxNorm: 1 Tablet(s) PO daily 10/21/192018 Inactive This refill negates all other refills of this medication buspirone 7.5 mg tablet RxNorm: 749477 1 Tablet(s) PO BID 10/12/192018 Inactive cetirizine 10 mg tablet RxNorm: 0890891 1 Tablet(s) PO daily 09/28/202018 Inactive Guaiasorb DM 10 mg-100 mg/5 mL oral liquid RxNorm: 285948 10 Milliliter(s) PO As needed every 4 hr 09/24/202018 Inactive Vicks Vaporub 4.7 %-1.2 %-2.6 % topical ointment RxNorm: 1259661 1 Application TOP TID 09/24/20 18 2018 Inactive levmetamfetamine 50 mg nasal inhaler RxNorm: 1 Unit(s) NASAL Q3-4H 09/24/20 18 2017 Inactive sertraline 50 mg tablet RxNorm: 412028 1 Tablet(s) PO daily 09/09/20 18 2018 Inactive Please note dose trazodone 50 mg tablet RxNorm: 344925 1 Tablet(s) PO QHS 09/06/20 18 2018 Inactive sertraline 50 mg tablet RxNorm: 444478 1 Tablet(s) PO daily 09/06/20 18 2017 Inactive amoxicillin 500 mg tablet RxNorm: 747372 1 Tablet(s) PO Q12H 08/31/20 18 2017 Inactive albuterol sulfate 2.5 mg/3 mL (0.083 %) solution for nebulization RxNorm: 389072 1 Vial INH QID 08/10/20 18 2018 Inactive 60/box. Please do not fill early. Please do not auto refill. Prozac 10 mg capsule RxNorm: 656086 1 Capsule(s) PO daily 08/09/20 18 2017 Inactive buspirone 7.5 mg tablet RxNorm: 972698 1 Tablet(s) PO BID 08/09/20 18 2018 Inactive gabapentin 300 mg capsule RxNorm: 463695 1 Capsule(s) PO TID as needed 08/01/20 18 2018 Inactive hydrochlorothiazide 12.5 mg tablet RxNorm: 081838 1 Tablet(s) PO QAM 08/01/20 18 2018 Inactive ranitidine 150 mg tablet RxNorm: 888973 1 Tablet(s) PO BID 08/01/20 18 2018 Inactive Macrobid 100 mg capsule RxNorm: 145161 1 Capsule(s) PO Q12H 06/21/20 18 2017 Inactive Singulair 10 mg tablet RxNorm: 462181 1 Tablet(s) PO daily 06/14/20 18 2018 Inactive Ventolin HFA 90 mcg/actuation aerosol inhaler RxNorm: 4651501 2 Puff(s) INH QID 06/14/20 18 2018 Inactive Singulair 10 mg tablet RxNorm: 934633 1 Tablet(s) PO daily 06/14/20 18 2017 Inactive buspirone 7.5 mg tablet RxNorm: 335959 1 Tablet(s) PO BID 06/14/20 18 2017 Inactive Prozac 10 mg capsule RxNorm: 287619 1 Capsule(s) PO daily 06/14/20 18 2017 Inactive Neilmed Pediatric Sinus Rinse Refill packet RxNorm: 1 Unit Dose NASAL PRN 05/31/20 18 2021 Inactive diclofenac sodium 75 mg tablet,delayed release RxNorm: 714693 1 Tablet(s) PO BID 05/31/20 18 2017 Inactive lisinopril 2.5 mg tablet RxNorm: 544778 1 Tablet(s) PO daily 05/31/20 18 2017 Inactive metoprolol succinate ER 50 mg tablet,extended release 24 hr RxNorm: 481127 1 Tablet(s) PO daily 05/31/20 18 2017 Inactive levothyroxine 50 mcg tablet RxNorm: 149461 1 Tablet(s) PO daily 05/31/20 18 2017 Inactive TRUEplus Lancets 30 gauge RxNorm: 1 Lancets Miscellaneous QAM 05/31/20 18 2017 Inactive 100/box Ventolin HFA 90 mcg/actuation aerosol inhaler RxNorm: 641799 2 Puff(s) INH QID 05/31/20 18 2017 Inactive Aleve 220 mg capsule RxNorm: 2723941 1 Capsule(s) PO BID 05/31/20 18 2018 Inactive ranitidine 150 mg tablet RxNorm: 532547 1 Tablet(s) PO BID 05/31/20 18 2017 Inactive gabapentin 300 mg capsule RxNorm: 490682 1 Capsule(s) PO TID as needed 05/31/20 18 2017 Inactive atorvastatin 20 mg tablet RxNorm: 931724 1 Tablet(s) PO QHS 05/31/20 18 2017 Inactive True Metrix Glucose Test Strip RxNorm: 1 Test Strips Miscellaneous QAM 05/31/20 18 2017 Inactive 50/container Calcium 600-D3 Plus 600 mg calcium-800 unit-50 mg tablet RxNorm: 1 Tablet(s) PO daily take an additonal tablet for itching. 05/31/20 18 2017 Inactive hydrochlorothiazide 12.5 mg tablet RxNorm: 597266 1 Tablet(s) PO QAM 05/31/20 18 2017 Inactive Flintstones Complete (iron) 18 mg iron chewable tablet RxNorm: 1 Tablet(s) PO daily 05/31/20 18 2017 Inactive d-mannose oral powder RxNorm: PO 18 2021 Inactive True Metrix Glucose Meter RxNorm: miscellaneous 08/17/20 19 2018 Inactive sertraline 50 mg tablet RxNorm: 299787 1 Tablet(s) PO daily 11/28/19 20 2019 Inactive loperamide 2 mg tablet RxNorm: 412464 oral 09/29/20 19 2018 Inactive Symbicort 160 mcg-4.5 mcg/actuation HFA aerosol inhaler RxNorm: 4022988 2 Puff(s) INH BID 08/17/20 19 2018 Inactive Medication Administered No Medication Administered data Procedures Procedure Codes Date Jamul Fany Assessment CPT-4: DSWA 11/04 Patient Health Questionnaire CPT-4: DPHQ Jamul Fany Assessment CPT-4: DSWA 10/03 Hypertension CPT-4: HTN 10/17/2019 Fall Risk Assessment SNOMED CT: 78162244 4 CPT-4: DFRA 09/19/2019 Functional Assessment CPT-4: DFA 09/19/2019 Urinalysis, dip stick CPT-4: 67620 06/21/2019 Tobacco Assessment/Screening CPT-4: TCA Patient Health Questionnaire CPT-4: DPHQ AHA/REBECCA Classification Assessment CPT-4: DAHA 04/25/2019 Controlled Substance Report CPT-4: CTRSU 04/03 Urinalysis, dip stick CPT-4: 89784 03/28/2019 Urinalysis, dip stick CPT-4: 37121 03/28/2019 [id number] CPT-4: 66779 Unknown [id number] CPT-4: 35158 Unknown Gynecology Referral SNOMED CT: 028285945 CPT-4: R14 Unknown Reason For Visit No Reason For Visit data Plan of Care Planned Activity Notes Codes Status Date Patient Education: Patient Medication Summary Completed 12/11/2019 Appointment: Anna Culver WPtel: [address] [place] [address] E452 11/28/2019 Appointment: Anna Culver WPtel: [address] [place] [address] E452 10/17/2019 Appointment: Anna Culver WPtel: [address] [place] [address] E452 09/19/2019 Appointment: Sudha Hernadez WPtel: [address] [facility] [id number] E452 07/04/2019 Appointment: Sudha Hernadez WPtel: [address] [facility] [id number] E452 06/21/2019 Appointment: Charlene Oropeza WPtel: [address] [facility] [id number] E452 05/24/2019 Appointment: Mallory Delgado E452 04/27/2019 Appointment: Charlene Oropeza WPtel: [address] [facility] [id number] E452 04/25/2019 Appointment: Rasta Palafox WPtel: [address] [facility] [id number] E452 03/28/2019 Appointment: Rasta Palafox WPtel: [address] [id number] E452 02/14/2019 Appointment: Rasta Palafox WPtel: [address] [facility] [id number] E452 01/31/2019 Appointment: Rasta Palafox WPtel: [address] [facility] [id number] E420 12/27/2018 Referral: Pending Gynecology Referral Information Referral Processed Referral: Pending Pulmonolog y Referral Information Referral Processed Referral: Pending Psychiatry Referral Information Referral Initiated Referral: Pending Respirator y Services Referral Information Referral Initiated Referral: Pending Ophthalmology Referral Information Referral Initiated Referral: [facility] WPtel: [address] [place] [address] Bilingual Customer Service Specialist placed a call out to the patient to notify her that it has been recommended that she be seen by 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 Patient agreed to be seen, does not have a provider of choice and no transportation issues. Bilingual Customer Service Specialist faxed referral and clinical notes to [facility] in [place], [place] near the patient's home. Patient to [...] and prefers a provider in the [facility] or [facility]. Bilingual Customer Service Specialist placed a call out to everyone listed in the area and the only location that was able to accept the patient's insurance was [place] [address] [place] [address] and spoke with Maylin. Maylin asked that the patient's referral, face sheet and visit notes be faxed to . Bilingual Customer Service Specialist faxed over requested documents. Patient appointment confirmation letter generated and mailed to her home address. Patient to call to schedule an appointment. Processed Referral: [facility] WPtel: [address] [place] [address] [phone] [id number] Patient notified that it has been advised that she be seen by Neurology. Patient agreed to be seen and prefers to be seen by a provider in the [place], [place] area. Patient denies any concerns with transportation, and prefers to schedule her own appointment. Bilingual Customer Service Specialist placed a call out to [facility] and spoke with Neeraj P: [...]
--- OUTSIDE RECORDS SUMMARY | 2023-12-07 02:09 | XMS_ITS | CCD ---
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 Name Role Phone Anna Culver NP Primary Care Provider Unav ailable Unavailable Chronic Care Management Unavaila ble Summary Purpose DataExchange Insurance Providers Payer name Policy type / Coverage type Covered democrat ID Effective Begin Date Effective End Date SUKI MAYO [id number] Unknown Unknown Family history Mother Diagnosis Age [...] Unknown Disability 05/31/[address]: 682888959 Has never s moked or chewed tobacco 05/31/[address]: 080118196 Never drinks alco hol 05/31/2018 Has the [...] Other manager long term care (current) dr edith therapy [...] Fill Instructions quetiapine 100 mg tablet RxNorm: 376566 1 Tablet(s) Oral every night at bedtime 11/28/192019 Inactive sertraline 100 mg tablet RxNorm: 559976 1 Tablet(s) Oral 11/28/19 20 2019 Inactive omeprazole 20 mg capsule,delayed release RxNorm: 507988 1 Capsule(s) Oral every day 11/20/19 20 2019 Inactive amoxicillin 250 mg capsule RxNorm: 471581 1 Capsule(s) Oral three times a day 11/07/19 20 2019 Inactive multivitamin with iron-mineral tablet RxNorm: 1 Tablet(s) Oral every day 10/29/19 20 2021 Inactive cetirizine 10 mg tablet RxNorm: 5512080 1 Tablet(s) PO daily 10/20/19 20 2019 Inactive This refill negates all other refills of this medication. Please do not auto refill Singulair 10 mg tablet RxNorm: 902773 1 Tablet(s) PO daily 10/20/19 20 2019 Inactive This refill negates all other refills of this medication gabapentin 300 mg capsule RxNorm: 559574 1 Capsule(s) PO TID 10/20/19 20 2019 Inactive lisinopril 2.5 mg tablet RxNorm: 010632 1 Tablet(s) PO daily 10/20/19 20 2019 Inactive levothyroxine 50 mcg tablet RxNorm: 752985 1 Tablet(s) PO daily 10/20/192019 Inactive This refill negates all other refills of this medication hydrochlorothiazide 25 mg tablet RxNorm: 772006 1 Tablet(s) Oral every day 10/17/19 20 2019 Inactive fenugreek seed extract 500 mg capsule RxNorm: 1 Capsule(s) Oral three times a day 10/17/19 20 2021 Inactive Alcohol Prep Pads RxNorm: 166324 1 Patch TOP QAM 10/16/19 20 2020 Inactive loperamide 2 mg tablet RxNorm: 805204 1 Tablet(s) Oral as needed take one [...] 2019 Inactive hydrochlorothiazide 25 mg tablet RxNorm: 940023 1 Tablet(s) Oral every day 09/19/20 19 2019 Inactive Sudafed 12 Hour 120 mg tablet,extended release RxNorm: 6887517 1 Tablet(s) Oral every 12 hours as needed 09/11/20 19 2018 Inactive omeprazole 20 mg capsule,delayed release RxNorm: 879042 1 Capsule(s) Oral every day 09/07/20 19 2019 Inactive Sudafed 12 Hour 120 mg tablet,extended release RxNorm: 2276706 1 Tablet(s) Oral every 12 hours as needed 09/04/20 19 2018 Inactive pantoprazole 40 mg tablet,delayed release RxNorm: 407401 1 Tablet(s) Oral every day 08/24/202018 Inactive discontinue any other H2Blkr. and PPI albuterol sulfate 2.5 mg/3 mL (0.083 %) solution for nebulization RxNorm: 385170 1 Vial Inhalation every four hours as needed as needed for dyspnea 08/17/202019 Inactive 60/box. This refill negates all other refills of this medication. Please do not fill early. Please do not auto refill. Symbicort 160 mcg-4.5 mcg/actuation HFA aerosol inhaler RxNorm: 6504411 2 Puff(s) INH BID 08/17/20 No Stop Date Active Alcohol Prep Pads RxNorm: 912516 1 Patch TOP QAM 08/17/20 19 2019 Inactive True Metrix Glucose Test Strip RxNorm: 1 Test Strips Miscellaneous QAM 08/09/20 19 2019 Inactive 100/container Ventolin HFA 90 mcg/actuation aerosol inhaler RxNorm: 337147 2 Puff(s) INH QID 08/09/20 19 2019 Inactive Please do not fill early. Please do not auto refill. This refill negates all other refills of this medication atorvastatin 40 mg tablet RxNorm: 252660 1 Tablet(s) Oral every day 07/04/20 19 2019 Inactive levmetamfetamine 50 mg nasal inhaler RxNorm: 1 Unit(s) NASAL Q3-4H Do not use more than every 3 hours or 8 times/24hours 06/26/20 19 2021 Inactive Please do not auto refill. This refill negates all other refills of this medication diclofenac sodium 75 mg tablet,delayed release RxNorm: 925178 1 Tablet(s) PO BID 06/26/20 19 2019 Inactive This refill negates all other refills of this medication buspirone 7.5 mg tablet RxNorm: 716466 1 Tablet(s) PO BID 06/26/20 19 2020 Inactive This refill negates all other refills of this medication hydrochlorothiazide 12.5 mg tablet RxNorm: 702738 1 Tablet(s) PO QAM 06/26/20 19 2019 Inactive Ventolin HFA 90 mcg/actuation aerosol inhaler RxNorm: 028109 2 Puff(s) INH QID 06/26/20 19 2018 Inactive Please do not fill early. Please do not auto refill. This refill negates all other refills of this medication Singulair 10 mg tablet RxNorm: 582544 1 Tablet(s) PO daily 06/26/20 19 2019 Inactive This refill negates all other refills of this medication cetirizine 10 mg tablet RxNorm: 6430031 1 Tablet(s) PO daily 06/26/20 19 2019 Inactive This refill negates all other refills of this medication. Please do not auto refill levothyroxine 50 mcg tablet RxNorm: 343522 1 Tablet(s) PO daily 06/26/20 19 2019 Inactive This refill negates all other refills of this medication ranitidine 150 mg tablet RxNorm: 089693 1 Tablet(s) PO BID 06/26/20 19 2018 Inactive This refill negates all other refills of this medication Calcium 600-D3 Plus (mag-zinc) 600 mg calcium-800 unit-50 mg tablet RxNorm: 1 Tablet(s) PO daily take an additonal tablet for itching. 06/26/20 19 2018 Inactive This refill negates all other refills of this medication albuterol sulfate 2.5 mg/3 mL (0.083 %) solution for nebulization RxNorm: 428995 1 Vial INH QID 06/26/20 19 2018 Inactive 60/box. This refill negates all other refills of this medication. Please do not fill early. Please do not auto refill. lisinopril 2.5 mg tablet RxNorm: 283949 1 Tablet(s) PO daily 06/21/20 19 2019 Inactive gabapentin 300 mg capsule RxNorm: 181019 1 Capsule(s) PO TID 06/21/20 19 2019 Inactive atorvastatin 20 mg tablet RxNorm: 976126 1 Tablet(s) PO QHS 06/07/202018 Inactive This refill negates all other refills of this medication TRUEplus Lancets 30 gauge RxNorm: 1 Lancets Miscellaneous QAM 05/29/20 19 2018 Inactive 100/box gabapentin 300 mg capsule RxNorm: 866479 1 Capsule(s) PO TID 05/03/20 19 2018 Inactive Flintsmaury Complete (iron) 18 mg iron chewable tablet RxNorm: 1 Tablet(s) PO daily 04/04/20 19 2021 Inactive This refill negates all other refills of this medication gabapentin 300 mg capsule RxNorm: 385599 1 Capsule(s) PO TID as needed 02/01/20 19 2018 Inactive True Metrix Glucose Test Strip RxNorm: 1 Test Strips Miscellaneous QA 02/01/20 19 2018 Inactive 100/container Alcohol Prep Pads RxNorm: 900822 1 Patch TOP QAM 02/01/202018 Inactive TRUEplus Lancets 30 gauge RxNorm: 1 Lancets Miscellaneous QAM 02/01/20 19 2018 Inactive 100/box lisinopril 2.5 mg tablet RxNorm: 605925 1 Tablet(s) PO daily 12/28/19 19 2018 Inactive ranitidine 150 mg tablet RxNorm: 711723 1 Tablet(s) PO BID 10/21/19 19 2018 Inactive This refill negates all other refills of this medication albuterol sulfate 2.5 mg/3 mL (0.083 %) solution for nebulization RxNorm: 809221 1 Vial INH QID 10/21/19 19 2018 [...] this medication gabapentin 300 mg capsule RxNorm: 258660 1 Capsule(s) PO TID as needed 10/21/192018 Inactive atorvastatin 20 mg tablet RxNorm: 821279 1 Tablet(s) PO QHS 10/21/192018 Inactive This refill negates all other refills of this medication trazodone 50 mg tablet RxNorm: 442459 1 Tablet(s) PO QHS 10/21/192018 Inactive This refill negates all other refills of this medication Ventolin HFA 90 mcg/actuation aerosol inhaler RxNorm: 793944 2 Puff(s) INH QID 10/21/192018 Inactive Please do not fill early. Please do not auto refill. This refill negates all other refills of this medication Calcium 600-D3 Plus 600 mg calcium-800 unit-50 mg tablet RxNorm: 1 Tablet(s) PO daily take an additonal tablet for itching. 10/21/192018 Inactive This refill negates all other refills of this medication Singulair 10 mg tablet RxNorm: 296643 1 Tablet(s) PO daily 10/21/192018 Inactive This refill negates all other refills of this medication buspirone 7.5 mg tablet RxNorm: 209508 1 Tablet(s) PO BID 10/21/192018 Inactive This refill negates all other refills of this medication diclofenac sodium 75 mg tablet,delayed release RxNorm: 547200 1 Tablet(s) PO BID 10/21/1919 01/18/ 2019 Inactive This refill negates all other refills of this medication hydrochlorothiazide 12.5 mg tablet RxNorm: 387621 1 Tablet(s) PO QAM 10/21/19 19 2018 Inactive metoprolol succinate ER 50 mg tablet,extended release 24 hr RxNorm: 364868 1 Tablet(s) PO daily 10/21/19 19 2018 Inactive This refill negates all other refills of this medication levothyroxine 50 mcg tablet RxNorm: 248734 1 Tablet(s) PO daily 10/21/19 19 2018 Inactive This refill negates all other refills of this medication cetirizine 10 mg tablet RxNorm: 3836142 1 Tablet(s) PO daily 10/21/192018 Inactive This refill negates all other refills of this medication. Please do not auto refill Flintstones Complete (iron) 18 mg iron chewable tablet RxNorm: 1 Tablet(s) PO daily 10/21/192018 Inactive This refill negates all other refills of this medication buspirone 7.5 mg tablet RxNorm: 871794 1 Tablet(s) PO BID 10/12/192018 Inactive cetirizine 10 mg tablet RxNorm: 6638365 1 Tablet(s) PO daily 09/28/202018 Inactive Guaiasorb DM 10 mg-100 mg/5 mL oral liquid RxNorm: 108582 10 Milliliter(s) PO As needed every 4 hr 09/24/202018 Inactive Vicks Vaporub 4.7 %-1.2 %-2.6 % topical ointment RxNorm: 8005127 1 Application TOP TID 09/24/20 18 2018 Inactive levmetamfetamine 50 mg nasal inhaler RxNorm: 1 Unit(s) NASAL Q3-4H 09/24/20 18 2017 Inactive sertraline 50 mg tablet RxNorm: 112546 1 Tablet(s) PO daily 09/09/20 18 2018 Inactive Please note dose trazodone 50 mg tablet RxNorm: 602616 1 Tablet(s) PO QHS 09/06/20 18 2018 Inactive sertraline 50 mg tablet RxNorm: 414251 1 Tablet(s) PO daily 09/06/20 18 2017 Inactive amoxicillin 500 mg tablet RxNorm: 761822 1 Tablet(s) PO Q12H 08/31/20 18 2017 Inactive albuterol sulfate 2.5 mg/3 mL (0.083 %) solution for nebulization RxNorm: 027403 1 Vial INH QID 08/10/20 18 2018 Inactive 60/box. Please do not fill early. Please do not auto refill. Prozac 10 mg capsule RxNorm: 374759 1 Capsule(s) PO daily 08/09/20 18 2017 Inactive buspirone 7.5 mg tablet RxNorm: 523023 1 Tablet(s) PO BID 08/09/20 18 2018 Inactive gabapentin 300 mg capsule RxNorm: 207780 1 Capsule(s) PO TID as needed 08/01/20 18 2018 Inactive hydrochlorothiazide 12.5 mg tablet RxNorm: 438965 1 Tablet(s) PO QAM 08/01/20 18 2018 Inactive ranitidine 150 mg tablet RxNorm: 662818 1 Tablet(s) PO BID 08/01/20 18 2018 Inactive Macrobid 100 mg capsule RxNorm: 699684 1 Capsule(s) PO Q12H 06/21/20 18 2017 Inactive Singulair 10 mg tablet RxNorm: 357435 1 Tablet(s) PO daily 06/14/20 18 2018 Inactive Ventolin HFA 90 mcg/actuation aerosol inhaler RxNorm: 7142177 2 Puff(s) INH QID 06/14/20 18 2018 Inactive Singulair 10 mg tablet RxNorm: 676626 1 Tablet(s) PO daily 06/14/20 18 2017 Inactive buspirone 7.5 mg tablet RxNorm: 908790 1 Tablet(s) PO BID 06/14/20 18 2017 Inactive Prozac 10 mg capsule RxNorm: 163659 1 Capsule(s) PO daily 06/14/20 18 2017 Inactive Neilmed Pediatric Sinus Rinse Refill packet RxNorm: 1 Unit Dose NASAL PRN 05/31/20 18 2021 Inactive diclofenac sodium 75 mg tablet,delayed release RxNorm: 556572 1 Tablet(s) PO BID 05/31/20 18 2017 Inactive lisinopril 2.5 mg tablet RxNorm: 151075 1 Tablet(s) PO daily 05/31/20 18 2017 Inactive metoprolol succinate ER 50 mg tablet,extended release 24 hr RxNorm: 637724 1 Tablet(s) PO daily 05/31/20 18 2017 Inactive levothyroxine 50 mcg tablet RxNorm: 057287 1 Tablet(s) PO daily 05/31/20 18 2017 Inactive TRUEplus Lancets 30 gauge RxNorm: 1 Lancets Miscellaneous QAM 05/31/20 18 2017 Inactive 100/box Ventolin HFA 90 mcg/actuation aerosol inhaler RxNorm: 705982 2 Puff(s) INH QID 05/31/20 18 2017 Inactive Aleve 220 mg capsule RxNorm: 3187921 1 Capsule(s) PO BID 05/31/20 18 2018 Inactive ranitidine 150 mg tablet RxNorm: 203699 1 Tablet(s) PO BID 05/31/20 18 2017 Inactive gabapentin 300 mg capsule RxNorm: 470049 1 Capsule(s) PO TID as needed 05/31/20 18 2017 Inactive atorvastatin 20 mg tablet RxNorm: 253428 1 Tablet(s) PO QHS 05/31/20 18 2017 Inactive True Metrix Glucose Test Strip RxNorm: 1 Test Strips Miscellaneous QAM 05/31/20 18 2017 Inactive 50/container Calcium 600-D3 Plus 600 mg calcium-800 unit-50 mg tablet RxNorm: 1 Tablet(s) PO daily take an additonal tablet for itching. 05/31/20 18 2017 Inactive hydrochlorothiazide 12.5 mg tablet RxNorm: 863799 1 Tablet(s) PO QAM 08/292017 Inactive Flintssaranbree Complete (iron) 18 mg iron chewable tablet RxNorm: 1 Tablet(s) PO daily 05/31/20 18 2017 Inactive d-mannose oral powder RxNorm: PO 18 2021 Inactive True Metrix Glucose Meter RxNorm: miscellaneous 08/17/20 19 2018 Inactive sertraline 50 mg tablet RxNorm: 356777 1 Tablet(s) PO daily 11/28/19 20 2019 Inactive loperamide 2 mg tablet RxNorm: 021812 oral 09/29/20 19 2018 Inactive Symbicort 160 mcg-4.5 mcg/actuation HFA aerosol inhaler RxNorm: 5357885 2 Puff(s) INH BID 08/17/20 19 2018 Inactive Medication Administered No Medication Administered data Procedures Procedure Codes Date Casar Fany Assessment CPT-4: DSWA 11/04 Patient Health [...] Score:/0-4 = Negative for depression- NO PLAN NEEDED, Plan:/*Active diagnosis of depression CPT-4: DPHQUnknown 11/28/2019 Casar Fany Assessment CPT-4: DSWAUnknown 11/28/2019 Casar Fany Assessment CPT-4: DSWA 10/03 Hypertension CPT-4: HTN 10/17/2019 Fall Risk Assessment SNOMED CT: 74157527 4 CPT-4: DFRA 09/19/2019 Functional Assessment CPT-4: DFA 09/19/2019 Urinalysis, dip stick CPT-4: 01994 06/21/2019 Tobacco Assessment/Screening CPT-4: TCA Patient Health Questionnaire CPT-4: DPHQ AHA/REBECCA Classification Assessment CPT-4: DAHA 04/25/2019 Controlled Substance Report CPT-4: CTRSU 04/03 Urinalysis, dip stick CPT-4: 47962 03/28/2019 Urinalysis, dip stick CPT-4: 56214 03/28/2019 [id number] CPT-4: 40168 Unknown I0O-[id number] CPT-4: 75154 Unknown Gynecology Referral SNOMED CT: 748039747 CPT-4: R14 Unknown Vital Signs Date Vital 11/28/2019 Blood Pressure 1: 120/85 Code: 8480-6 BMI: 58.8 Code: 90286-6 Heart Rate 1: 92 bpm Height: 4'11 Code: 8302-2 Respiratory Rate: 18 bpm SpO2: 97% Temperature: 36.4 (C) / 97.5 (F) Weight: 291 lbs Code: 13091-0 Reason For Visit Reason For Visit Effective Dates Notes hypertension 11/28/2019 diabetes mellitus 11/28/2019 Encounters Encounter Performer Location Location Address Codes Magdi e HOME VISIT EST PATIENT Diagnosis: Adjustment disorder with mixed anxiety and depressed mood[ICD10: F43.23] Diagnosis: Hypertensive heart disease with heart failure[ICD10: I11.0] Diagnosis: Adult BMI 50.0-59.9 kg/sq m[ICD10: Z68.43] Anna Culver [place] [facility] [address] [facility] [address] [place], [place] [address] CPT-4: 00018 11/28/2019 Plan of Care Planned Activity Notes [...] log left with patient 10/17/2019 Hemoglobin A1C 6.0 07/04/2019 Hgb A1C 5.6 10/17/2019 Inocente Soares 710-instructed on good daily foot care Note callous [...] disorder with mixed anxiety and depressed mood [facility] Z68.43-V85.43 Adult BMI 50.0-59.9 kg/sq m 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 [employer] to visit to discuss portion control Advised to avoid soda and sweet tea-discuss Ice, carbonated drink as a substitute Discuss healthy carbs 11/28/2019 Patient Education: Patient Medication Summary Completed 11/28/2019 Patient Education: Diabetes Complete d 11/28/2019 Patient Education: Hypertension Completed 11/28/2019 Appointment: Anna Culver WPtel: [phone] E452 10/17/2019 Appointment: Anna Culver WPtel: [id number] [place], [place] [id number] 09/19/2019 Appointment: Sudha Hernadez WPtel: [address] [facility] [id number] 07/04/2019 Appointment: Sudha Hernadez WPtel: [address] [place] [address] [id number] 06/21/2019 Appointment: Charlene Oropeza WPtel: [address] [place] [address] [id number] 05/24/2019 Appointment: Mallory Delgado E452 04/27/2019 Appointment: Charlene Oropeza WPtel: [address] [place] [address] [id number] 04/25/2019 Appointment: Rasta Palafox WPtel: [address] [place] [address] [id number] 03/28/2019 Appointment: Rasta Palafox WPtel: [address] [place] [address] [id number] [id number] 02/14/2019 Appointment: Rasta Palafox WPtel: [address] [place] [address] [id number] E452 01/31/2019 Appointment: Rasta Palafox WPtel: [address] [place] [address] [id number] 12/27/2018 Referral: Pending Gynecology Referral Information Referral Processed Referral: Pending Pulmonolog y Referral Information Referral Processed Referral: Pending Psychiatry Referral Information Referral Initiated Referral: Pending Respirator y Services Referral Information Referral Initiated Referral: Pending Ophthalmology Referral Information Referral Initiated Referral: [facility] WPtel: [address] [place] Transmission Superintendent placed a call out to the patient to notify her that it has been recommended that she be seen by 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 Patient agreed to be seen, does not have a provider of choice and no transportation issues. Transmission Superintendent faxed referral and clinical notes to [facility] in [place], [place] near the patient's home. Patient to [...] seen and prefers a provider in the [place] or [place] area. Transmission Superintendent placed a call out to everyone listed in the area and the only location that was able to accept the patient's insurance was [address] [phone] and spoke with Maylin. Maylin asked that the patient's referral, face sheet and visit notes be faxed to . Transmission Superintendent faxed over requested documents. Patient appointment confirmation letter generated and mailed to her home address. Patient to call to schedule an appointment. [facility] W[facility]: [address] [place] [address] Patient notified that it has been advised that she be seen by Neurology. Patient agreed to be seen and prefers to be seen by a provider in the [place], [place] area. Patient denies any concerns with transportation, and prefers to schedule her own appointment. Transmission Superintendent placed a call out to [facility] [...] Information Referral Initiated Instructions Comment Date . t N18.9-585.9 Chronic [...] A1C 6.0; 07/04/2019 Hgb A1C 5.6 10/17/2019 Casar Fany 7/10-instructed on good daily foot care [...] disorder with mixed anxiety and depressed mood [facility] Z68.43-V85.43 Adult BMI 50.0-59.9 kg/sq m [employer] to visit to discuss portion control Advised to avoid soda and sweet tea-discuss Ice, carbonated drink as a substitute Discuss healthy carbs 11/28/2019 Medical Equipment No Medical Equipment data Advance Directives No Advance Directive data
--- OUTSIDE RECORDS SUMMARY | 2023-12-07 02:09 | XMS_ITS | CCD ---
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 Name Role Phone Palomo KING, Anna Primary Care Provider Unav ailable Unavailable Chronic Care Management Unavaila ble Summary Purpose DataExchange Insurance Providers Payer name Policy type / Coverage type Covered democrat ID Effective Begin Date Effective End Date SUKI [employer]TS MARIA ESTHER [id number] Unknown Unknown Family history Mother Diagnosis Age [...] Unknown Disability 05/31/[address]: 713607908 Has never s moked or chewed tobacco 05/31/[address]: 731521661 Never drinks alco hol 05/31/2018 Has the [...] ICD-9: 401.9 10/03/2018 Active Obstructive sleep apnea (choi lt) (pediatric) ICD-10: G47.33 ICD-9: 327.23 06/21/2019 [...] ICD-10: Z12.4 ICD-9: V76.2 04/25/2019 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 ICD-10: Z79.899 ICD-9: [...] Headache ICD-10: R51 ICD-9: 784.0 10/03/2018 Active 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 (current) use of non-steroidal anti-inflammatories (NSAID) ICD-10: Z79.1 ICD-9: V58.64 06/13/2018 Active Medications Medication Codes Instructions Start Date Stop Date Status Fill Instructions hydrochlorothiazide 25 mg tablet RxNorm: 150132 1 Tablet(s) Oral every day 12/21/19 20 2019 Inactive Sudafed 12 Hour 120 mg tablet,extended release RxNorm: 1769149 TAKE (1) TABLET BY MOUTH EVERY 12 HOURS NEEDED 12/21/19 20 2019 Inactive loperamide 2 mg tablet RxNorm: 341149 1 Tablet(s) Oral as needed take one tablet after each loose stool, maximum of 8 tablets in 24 hours 12/11/19 20 2019 Inactive loperamide 2 mg tablet RxNorm: 409273 1 Tablet(s) Oral as needed take one tablet after each loose stool, maximum of 8 tablets in 24 hours 12/11/19 20 2019 Inactive atorvastatin 40 mg tablet RxNorm: 462996 1 Tablet(s) Oral every day 11/29/19 20 2020 Inactive quetiapine 100 mg tablet RxNorm: 770595 1 Tablet(s) Oral every night at bedtime 11/28/19 20 2019 Inactive sertraline 100 mg tablet RxNorm: 663511 1 Tablet(s) Oral 11/28/19 20 2019 Inactive omeprazole 20 mg capsule,delayed release RxNorm: 827668 1 Capsule(s) Oral every day 11/20/19 20 2019 Inactive amoxicillin 250 mg capsule RxNorm: 550984 1 Capsule(s) Oral three times a day 11/07/19 20 2019 Inactive multivitamin with iron-mineral tablet RxNorm: 1 Tablet(s) Oral every day 10/29/19 20 2021 Inactive cetirizine 10 mg tablet RxNorm: 3106216 1 Tablet(s) PO daily 10/20/19 20 2019 Inactive This refill negates all other refills of this medication. Please do not auto refill Singulair 10 mg tablet RxNorm: 046154 1 Tablet(s) PO daily 10/20/19 20 2019 Inactive This refill negates all other refills of this medication gabapentin 300 mg capsule RxNorm: 534760 1 Capsule(s) PO TID 10/20/19 20 2019 Inactive lisinopril 2.5 mg tablet RxNorm: 910966 1 Tablet(s) PO daily 10/20/19 20 2019 Inactive levothyroxine 50 mcg tablet RxNorm: 017116 1 Tablet(s) PO daily 10/20/19 20 2019 Inactive This refill negates all other refills of this medication fenugreek seed extract 500 mg capsule RxNorm: 1 Capsule(s) Oral three times a day 10/17/19 20 2021 Inactive hydrochlorothiazide 25 mg tablet RxNorm: 648922 1 Tablet(s) Oral every day 10/17/19 20 2019 Inactive Alcohol Prep Pads RxNorm: 516000 1 Patch TOP QAM 01/14/2020 Inactive loperamide 2 mg tablet RxNorm: 967303 1 Tablet(s) Oral as needed take one [...] 2019 Inactive hydrochlorothiazide 25 mg tablet RxNorm: 529446 1 Tablet(s) Oral every day 09/19/202019 Inactive Sudafed 12 Hour 120 mg tablet,extended release RxNorm: 5673613 1 Tablet(s) Oral every 12 hours as needed 09/11/20 19 2018 Inactive omeprazole 20 mg capsule,delayed release RxNorm: 566082 1 Capsule(s) Oral every day 09/07/20 19 2019 Inactive Sudafed 12 Hour 120 mg tablet,extended release RxNorm: 8294794 1 Tablet(s) Oral every 12 hours as needed 09/04/20 19 2018 Inactive pantoprazole 40 mg tablet,delayed release RxNorm: 223658 1 Tablet(s) Oral every day 08/24/20 19 2018 Inactive discontinue any other H2Blkr. and PPI albuterol sulfate 2.5 mg/3 mL (0.083 %) solution for nebulization RxNorm: 142875 1 Vial Inhalation every four hours as needed as needed for dyspnea 08/17/202019 Inactive 60/box. This refill negates all other refills of this medication. Please do not fill early. Please do not auto refill. Symbicort 160 mcg-4.5 mcg/actuation HFA aerosol inhaler RxNorm: 0941238 2 Puff(s) INH BID 08/17/20 19 No Stop Date Active Alcohol Prep Pads RxNorm: 667417 1 Patch TOP QAM 08/17/20 19 2019 Inactive True Metrix Glucose Test Strip RxNorm: 1 Test Strips Miscellaneous QAM 08/09/20 19 2019 Inactive 100/container Ventolin HFA 90 mcg/actuation aerosol inhaler RxNorm: 952358 2 Puff(s) INH QID 08/09/20 19 2019 Inactive Please do not fill early. Please do not auto refill. This refill negates all other refills of this medication atorvastatin 40 mg tablet RxNorm: 909578 1 Tablet(s) Oral every day 07/04/20 19 2019 Inactive levmetamfetamine 50 mg nasal inhaler RxNorm: 1 Unit(s) NASAL Q3-4H Do not use more than every 3 hours or 8 times/24hours 06/26/20 19 2021 Inactive Please do not auto refill. This refill negates all other refills of this medication diclofenac sodium 75 mg tablet,delayed release RxNorm: 404563 1 Tablet(s) PO BID 06/26/20 19 2019 Inactive This refill negates all other refills of this medication buspirone 7.5 mg tablet RxNorm: 660415 1 Tablet(s) PO BID 06/26/20 19 2020 Inactive This refill negates all other refills of this medication hydrochlorothiazide 12.5 mg tablet RxNorm: 200209 1 Tablet(s) PO QAM 06/26/20 19 2019 Inactive Ventolin HFA 90 mcg/actuation aerosol inhaler RxNorm: 960155 2 Puff(s) INH QID 06/26/20 19 2018 Inactive Please do not fill early. Please do not auto refill. This refill negates all other refills of this medication Singulair 10 mg tablet RxNorm: 622654 1 Tablet(s) PO daily 06/26/20 19 2019 Inactive This refill negates all other refills of this medication cetirizine 10 mg tablet RxNorm: 2529219 1 Tablet(s) PO daily 06/26/20 2019 Inactive This refill negates all other refills of this medication. Please do not auto refill levothyroxine 50 mcg tablet RxNorm: 673304 1 Tablet(s) PO daily 06/26/202019 Inactive This refill negates all other refills of this medication ranitidine 150 mg tablet RxNorm: 129220 1 Tablet(s) PO BID 06/26/20 19 2018 Inactive This refill negates all other refills of this medication Calcium 600-D3 Plus (mag-zinc) 600 mg calcium-800 unit-50 mg tablet RxNorm: 1 Tablet(s) PO daily take an additonal tablet for itching. 06/26/20 19 2018 Inactive This refill negates all other refills of this medication albuterol sulfate 2.5 mg/3 mL (0.083 %) solution for nebulization RxNorm: 330138 1 Vial INH QID 06/26/202018 Inactive 60/box. This refill negates all other refills of this medication. Please do not fill early. Please do not auto refill. lisinopril 2.5 mg tablet RxNorm: 780551 1 Tablet(s) PO daily 06/21/20 19 2019 Inactive gabapentin 300 mg capsule RxNorm: 330194 1 Capsule(s) PO TID 06/21/20 19 2019 Inactive atorvastatin 20 mg tablet RxNorm: 827405 1 Tablet(s) PO QHS 06/07/202018 Inactive This refill negates all other refills of this medication TRUEplus Lancets 30 gauge RxNorm: 1 Lancets Miscellaneous QAM 05/29/20 19 2018 Inactive 100/box gabapentin 300 mg capsule RxNorm: 397856 1 Capsule(s) PO TID 05/03/20 19 2018 Inactive Flintstones Complete (iron) 18 mg iron chewable tablet RxNorm: 1 Tablet(s) PO daily 04/04/20 19 2021 Inactive This refill negates all other refills of this medication gabapentin 300 mg capsule RxNorm: 954788 1 Capsule(s) PO TID as needed 02/01/20 19 2018 Inactive True Metrix Glucose Test Strip RxNorm: 1 Test Strips Miscellaneous QA 02/01/20 19 2018 Inactive 100/container Alcohol Prep Pads RxNorm: 664015 1 Patch TOP [facility] 02/01/20 19 2018 Inactive TRUEplus Lancets 30 gauge RxNorm: 1 Lancets Miscellaneous QA 02/01/20 19 2018 Inactive 100/box lisinopril 2.5 mg tablet RxNorm: 775769 1 Tablet(s) PO daily 12/28/19 19 2018 Inactive ranitidine 150 mg tablet RxNorm: 078499 1 Tablet(s) PO BID 10/21/192018 Inactive This refill negates all other refills of this medication albuterol sulfate 2.5 mg/3 mL (0.083 %) solution for nebulization RxNorm: 764174 1 Vial INH QID 10/21/192018 Inactive 60/box. [...] this medication gabapentin 300 mg capsule RxNorm: 868068 1 Capsule(s) PO TID as needed 10/21/192018 Inactive atorvastatin 20 mg tablet RxNorm: 724174 1 Tablet(s) PO QHS 10/21/19 19 2018 Inactive This refill negates all other refills of this medication trazodone 50 mg tablet RxNorm: 558618 1 Tablet(s) PO QHS 10/21/19 19 2018 Inactive This refill negates all other refills of this medication Ventolin HFA 90 mcg/actuation aerosol inhaler RxNorm: 110642 2 Puff(s) INH QID 10/21/19 19 2018 [...] this medication Singulair 10 mg tablet RxNorm: 255105 1 Tablet(s) PO daily 10/21/192018 Inactive This refill negates all other refills of this medication buspirone 7.5 mg tablet RxNorm: 794245 1 Tablet(s) PO BID 10/21/19 19 2018 Inactive This refill negates all other refills of this medication diclofenac sodium 75 mg tablet,delayed release RxNorm: 575259 1 Tablet(s) PO BID 10/21/19 19 2018 Inactive This refill negates all other refills of this medication hydrochlorothiazide 12.5 mg tablet RxNorm: 454100 1 Tablet(s) PO QAM 10/21/192018 Inactive metoprolol succinate ER 50 mg tablet,extended release 24 hr RxNorm: 109268 1 Tablet(s) PO daily 10/21/192018 Inactive This refill negates all other refills of this medication levothyroxine 50 mcg tablet RxNorm: 562405 1 Tablet(s) PO daily 10/21/192018 Inactive This refill negates all other refills of this medication cetirizine 10 mg tablet RxNorm: 5092170 1 Tablet(s) PO daily 10/21/192018 Inactive This refill negates all other refills of this medication. Please do not auto refill Flintstones Complete (iron) 18 mg iron chewable tablet RxNorm: 1 Tablet(s) PO daily 10/21/192018 Inactive This refill negates all other refills of this medication buspirone 7.5 mg tablet RxNorm: 451254 1 Tablet(s) PO BID 10/12/19 19 2018 Inactive cetirizine 10 mg tablet RxNorm: 5822357 1 Tablet(s) PO daily 09/28/20 18 2018 Inactive Guaiasorb DM 10 mg-100 mg/5 mL oral liquid RxNorm: 298988 10 Milliliter(s) PO As needed every 4 hr 09/24/20 18 2018 Inactive Vicks Vaporub 4.7 %-1.2 %-2.6 % topical ointment RxNorm: 5774844 1 Application TOP TID 09/24/20 18 2018 Inactive levmetamfetamine 50 mg nasal inhaler RxNorm: 1 Unit(s) NASAL Q3-4H 09/24/20 18 2017 Inactive sertraline 50 mg tablet RxNorm: 938327 1 Tablet(s) PO daily 09/09/20 18 2018 Inactive Please note dose trazodone 50 mg tablet RxNorm: 321399 1 Tablet(s) PO QHS 09/06/20 18 2018 Inactive sertraline 50 mg tablet RxNorm: 999713 1 Tablet(s) PO daily 09/06/20 18 2017 Inactive amoxicillin 500 mg tablet RxNorm: 879555 1 Tablet(s) PO Q12H 08/31/20 18 2017 Inactive albuterol sulfate 2.5 mg/3 mL (0.083 %) solution for nebulization RxNorm: 305341 1 Vial INH QID 08/10/20 18 2018 Inactive 60/box. Please do not fill early. Please do not auto refill. Prozac 10 mg capsule RxNorm: 181705 1 Capsule(s) PO daily 08/09/20 18 2017 Inactive buspirone 7.5 mg tablet RxNorm: 805131 1 Tablet(s) PO BID 08/09/20 18 2018 Inactive gabapentin 300 mg capsule RxNorm: 684931 1 Capsule(s) PO TID as needed 08/01/202018 Inactive hydrochlorothiazide 12.5 mg tablet RxNorm: 866279 1 Tablet(s) PO QAM 08/01/20 18 2018 Inactive ranitidine 150 mg tablet RxNorm: 182053 1 Tablet(s) PO BID 08/01/20 18 2018 Inactive Macrobid 100 mg capsule RxNorm: 093862 1 Capsule(s) PO Q12H 06/21/20 18 2017 Inactive Singulair 10 mg tablet RxNorm: 626053 1 Tablet(s) PO daily 06/14/20 18 2018 Inactive Ventolin HFA 90 mcg/actuation aerosol inhaler RxNorm: 5696338 2 Puff(s) INH QID 06/14/20 18 2018 Inactive Singulair 10 mg tablet RxNorm: 902371 1 Tablet(s) PO daily 06/14/20 18 2017 Inactive buspirone 7.5 mg tablet RxNorm: 034276 1 Tablet(s) PO BID 06/14/20 18 2017 Inactive Prozac 10 mg capsule RxNorm: 498806 1 Capsule(s) PO daily 06/14/20 18 2017 Inactive Neilmed Pediatric Sinus Rinse Refill packet RxNorm: 1 Unit Dose NASAL PRN 05/31/20 18 2021 Inactive diclofenac sodium 75 mg tablet,delayed release RxNorm: 808238 1 Tablet(s) PO BID 05/31/20 18 2017 Inactive lisinopril 2.5 mg tablet RxNorm: 589342 1 Tablet(s) PO daily 05/31/20 18 2017 Inactive metoprolol succinate ER 50 mg tablet,extended release 24 hr RxNorm: 373540 1 Tablet(s) PO daily 05/31/20 18 2017 Inactive levothyroxine 50 mcg tablet RxNorm: 787490 1 Tablet(s) PO daily 05/31/20 18 2017 Inactive TRUEplus Lancets 30 gauge RxNorm: 1 Lancets Miscellaneous QAM 05/31/20 18 2017 Inactive 100/box Ventolin HFA 90 mcg/actuation aerosol inhaler RxNorm: 883549 2 Puff(s) INH QID 05/31/20 18 2017 Inactive Aleve 220 mg capsule RxNorm: 7910871 1 Capsule(s) PO BID 05/31/20 18 2018 Inactive ranitidine 150 mg tablet RxNorm: 478812 1 Tablet(s) PO BID 05/31/20 18 2017 Inactive gabapentin 300 mg capsule RxNorm: 463904 1 Capsule(s) PO TID as needed 05/31/20 18 2017 Inactive atorvastatin 20 mg tablet RxNorm: 973469 1 Tablet(s) PO QHS 05/31/20 18 2017 Inactive True Metrix Glucose Test Strip RxNorm: [facility] 18 2017 Inactive 50/container Calcium 600-D3 Plus 600 mg calcium-800 unit-50 mg tablet RxNorm: 1 Tablet(s) PO daily take an additonal tablet for itching. 05/31/20 18 2017 Inactive hydrochlorothiazide 12.5 mg tablet RxNorm: 948361 1 Tablet(s) PO QAM 05/31/20 18 2017 Inactive Flintstones Complete (iron) 18 mg iron chewable tablet RxNorm: 1 Tablet(s) PO daily 05/31/20 18 2017 Inactive d-mannose oral powder RxNorm: PO 18 2021 Inactive True Metrix Glucose Meter RxNorm: miscellaneous 08/17/20 19 2018 Inactive sertraline 50 mg tablet RxNorm: 373417 1 Tablet(s) PO daily 11/28/19 20 2019 Inactive loperamide 2 mg tablet RxNorm: 697889 oral 09/29/20 19 2018 Inactive Symbicort 160 mcg-4.5 mcg/actuation HFA aerosol inhaler RxNorm: 9050658 2 Puff(s) INH BID 08/17/20 19 2018 Inactive Medication Administered No Medication Administered data Procedures Procedure Codes Date [place] Assessment CPT-4: DSWA 11/04 Patient Health Questionnaire CPT-4: DPHQ [place] Assessment CPT-4: DSWA 10/03 Hypertension CPT-4: HTN 10/17/2019 [facility] CPT-4: DFRA 09/19/2019 Functional Assessment CPT-4: DFA 09/19/2019 Urinalysis, dip stick CPT-4: 28726 06/21/2019 Tobacco Assessment/Screening CPT-4: TCA Patient Health Questionnaire CPT-4: DPHQ AHA/REBECCA Classification Assessment CPT-4: DAHA 04/25/2019 Controlled Substance Report CPT-4: CTRSU 04/03 Urinalysis, dip stick CPT-4: 72092 03/28/2019 Urinalysis, dip stick CPT-4: 82045 03/28/2019 [id number] CPT-4: 13836 Unknown [id number] CPT-4: 39766 Unknown Gynecology Referral SNOMED CT: 001277517 CPT-4: R14 Unknown Reason For Visit No Reason For Visit data Plan of Care Planned Activity Notes Codes Status Date Referral: Pending Gynecology Referral Information Referral Processed Referral: Pending Pulmonolog y Referral Information Referral Processed Referral: Pending Psychiatry Referral Information Referral Initiated Referral: Pending Respirator y Services Referral Information Referral Initiated Referral: Pending Ophthalmol ogy Referral Information Referral Initiated Referral: [facility] WPtel: [address] [place] [address] Linux Kernel Developer placed a call out to the patient to notify her that it has been recommended that she be seen by 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 Patient agreed to be seen, does not have a provider of choice and no transportation issues. Linux Kernel Developer faxed referral and clinical notes to [facility] in [place], [place] near the patient's home. Patient to [...] and prefers a provider in the [place] or [place] area. Linux Kernel Developer placed a call out to everyone listed in the area and the only location that was able to accept the patient's insurance was [place] [address] [place] [address] and spoke with Maylin. Maylin asked that the patient's referral, face sheet and visit notes be faxed to . Linux Kernel Developer faxed over requested documents. Patient appointment confirmation letter generated and mailed to her home address. Patient to call to schedule an appointment. [facility] [phone] [facility] [address] [place], [place] [id number] Patient notified that it has been advised that she be seen by Neurology. Patient agreed to be seen and prefers to be seen by a provider in the [place], [place] area. Patient denies any concerns with transportation, and prefers to schedule her own appointment. Linux Kernel Developer placed a call out to [facility] and spoke with Neeraj P: who confirmed that their office is able to accept new patients and the patient's insurance. After confirming the providers fax number, bond writer faxed over the patient's referral, and [...]
--- OUTSIDE RECORDS SUMMARY | 2023-12-07 02:10 | XMS_ITS | CCD ---
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 Twisting Frame Operator Name Role Phone Palomo KING, Anna Primary Care Provider Unav ailable Unavailable Chronic Care Management Unavaila ble Summary Purpose DataExchange Insurance Providers Payer name Policy type / Coverage type Covered alliance party ID Effective Begin Date Effective End Date SUKI MAYO [id number] Unknown Unknown Family history Mother Diagnosis Age [...] Unknown Disability 05/31/[address]: 512634124 Has never s moked or chewed tobacco 05/31/[address]: 802510623 Never drinks alco hol 05/31/2018 Has the [...] use ICD-10: Z01.89 ICD-9: V72.85 01/01/2020 Active Essential (primary) hypertension ICD-10: I10 ICD-9: 401.9 10/03/2018 Active [place] eye ICD-10: H10.029 ICD-9: 372.03 12/29/2019 Active Syncope and collapse ICD-10: R55 ICD-9: 780.2 01/01/2020 Active Type 2 diabetes mellitus wit h peripheral neuropathy ICD-10: E11.42 ICD-9: 250.60 11/28/2019 Active Fecal incontinence ICD-10: R15.9 ICD-9: 787.60 [...] Asthma ICD-10: J45.909 ICD-9: 493.90 08/08/2018 Active Obstructive sleep apnea (chio lt) (pediatric) [...] ICD-10: Z12.4 ICD-9: V76.2 04/25/2019 Active Other long-term (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 ICD-10: [...] Headache ICD-10: R51 ICD-9: 784.0 10/03/2018 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-inflammatories (NSAID) ICD-10: Z79.1 ICD-9: V58.64 06/13/2018 Active Medications Medication Codes Instructions Start Date Stop Date Status Fill Instructions levothyroxine 50 mcg tablet RxNorm: 856460 1 Tablet(s) PO daily 01/15/20 20 2019 Inactive lisinopril 2.5 mg tablet RxNorm: 996573 1 Tablet(s) PO daily 01/15/20 20 2020 Inactive gabapentin 300 mg capsule RxNorm: 058510 1 Capsule(s) PO TID 01/15/20 20 2019 Inactive cetirizine 10 mg tablet RxNorm: 1383698 1 Tablet(s) PO daily 01/15/20 20 2019 Inactive Singulair 10 mg tablet RxNorm: 798912 1 Tablet(s) PO daily 01/15/20 20 2020 Inactive gentamicin 0.3 % eye drops RxNorm: 210831 1 Drop(s) ophthalmic (eye) four times a day 12/29/19 20 2019 Inactive gentamicin 0.3 % eye drops RxNorm: 521478 1 Drop(s) ophthalmic (eye) four times a day 12/29/19 20 2019 Inactive gentamicin 0.3 % eye drops RxNorm: 870129 1 Drop(s) ophthalmic (eye) four times a day 12/29/19 20 2019 Inactive hydrochlorothiazide 25 mg tablet RxNorm: 380629 1 Tablet(s) Oral every day 12/21/192019 Inactive Sudafed 12 Hour 120 mg tablet,extended release RxNorm: 9776103 TAKE (1) TABLET BY MOUTH EVERY 12 HOURS NEEDED 12/21/19 20 2019 Inactive loperamide 2 mg tablet RxNorm: 196295 1 Tablet(s) Oral as needed take one tablet after each loose stool, maximum of 8 tablets in 24 hours 12/11/19 20 2019 Inactive loperamide 2 mg tablet RxNorm: 789534 1 Tablet(s) Oral as needed take one tablet after each loose stool, maximum of 8 tablets in 24 hours 12/11/19 20 2019 Inactive atorvastatin 40 mg tablet RxNorm: 421028 1 Tablet(s) Oral every day 11/29/19 20 2020 Inactive quetiapine 100 mg tablet RxNorm: 242481 1 Tablet(s) Oral every night at bedtime 11/28/19 20 2019 Inactive sertraline 100 mg tablet RxNorm: 569793 1 Tablet(s) Oral 11/28/19 20 2019 Inactive omeprazole 20 mg capsule,delayed release RxNorm: 757586 1 Capsule(s) Oral every day 11/20/19 20 2019 Inactive amoxicillin 250 mg capsule RxNorm: 458392 1 Capsule(s) Oral three times a day 11/07/19 20 2019 Inactive multivitamin with iron-mineral tablet RxNorm: 1 Tablet(s) Oral every day 10/29/19 20 2021 Inactive cetirizine 10 mg tablet RxNorm: 6664312 1 Tablet(s) PO daily 10/20/19 20 2019 Inactive This refill negates all other refills of this medication. Please do not auto refill Singulair 10 mg tablet RxNorm: 603657 1 Tablet(s) PO daily 10/20/19 20 2019 Inactive This refill negates all other refills of this medication gabapentin 300 mg capsule RxNorm: 694353 1 Capsule(s) PO TID 10/20/19 20 2019 Inactive lisinopril 2.5 mg tablet RxNorm: 059311 1 Tablet(s) PO daily 10/20/19 20 2019 Inactive levothyroxine 50 mcg tablet RxNorm: 014324 1 Tablet(s) PO daily 10/20/19 20 2019 Inactive This refill negates all other refills of this medication fenugreek seed extract 500 mg capsule RxNorm: 1 Capsule(s) Oral three times a day 10/17/19 20 2021 Inactive hydrochlorothiazide 25 mg tablet RxNorm: 891783 1 Tablet(s) Oral every day 10/17/19 20 2019 Inactive Alcohol Prep Pads RxNorm: 352013 1 Patch TOP QAM 10/16/19 20 2020 Inactive loperamide 2 mg tablet RxNorm: 736319 1 Tablet(s) Oral as needed take one [...] 30 gauge RxNorm: 1 Lancets Miscellaneous QAM 12/21/2019 Inactive 100/box fenugreek seed extract 500 mg capsule RxNorm: 1 Capsule(s) Oral three times a day 09/19/20 19 2019 Inactive hydrochlorothiazide 25 mg tablet RxNorm: 267668 1 Tablet(s) Oral every day 09/19/20 19 2019 Inactive Sudafed 12 Hour 120 mg tablet,extended release RxNorm: 1902275 1 Tablet(s) Oral every 12 hours as needed 09/11/20 19 2018 Inactive omeprazole 20 mg capsule,delayed release RxNorm: 671028 1 Capsule(s) Oral every day 09/07/20 19 2019 Inactive Sudafed 12 Hour 120 mg tablet,extended release RxNorm: 2228357 1 Tablet(s) Oral every 12 hours as needed 09/04/20 19 2018 Inactive pantoprazole 40 mg tablet,delayed release RxNorm: 616202 1 Tablet(s) Oral every day 08/24/202018 Inactive discontinue any other H2Blkr. and PPI albuterol sulfate 2.5 mg/3 mL (0.083 %) solution for nebulization RxNorm: 900671 1 Vial Inhalation every four hours as needed as needed for dyspnea 08/17/202019 Inactive 60/box. This refill negates all other refills of this medication. Please do not fill early. Please do not auto refill. Symbicort 160 mcg-4.5 mcg/actuation HFA aerosol inhaler RxNorm: 7707008 2 Puff(s) INH BID 08/17/20 19 No Stop Date Active Alcohol Prep Pads RxNorm: 033112 1 Patch TOP QAM 08/17/20 19 2019 Inactive True Metrix Glucose Test Strip RxNorm: 1 Test Strips Miscellaneous QAM 08/09/20 19 2019 Inactive 100/container Ventolin HFA 90 mcg/actuation aerosol inhaler RxNorm: 344930 2 Puff(s) INH QID 08/09/20 19 2019 Inactive Please do not fill early. Please do not auto refill. This refill negates all other refills of this medication atorvastatin 40 mg tablet RxNorm: 411449 1 Tablet(s) Oral every day 07/04/20 19 2019 Inactive levmetamfetamine 50 mg nasal inhaler RxNorm: 1 Unit(s) NASAL Q3-4H Do not use more than every 3 hours or 8 times/24hours 06/26/20 19 2021 Inactive Please do not auto refill. This refill negates all other refills of this medication diclofenac sodium 75 mg tablet,delayed release RxNorm: 685146 1 Tablet(s) PO BID 06/26/20 19 2019 Inactive This refill negates all other refills of this medication buspirone 7.5 mg tablet RxNorm: 406592 1 Tablet(s) PO BID 06/26/20 19 2020 Inactive This refill negates all other refills of this medication hydrochlorothiazide 12.5 mg tablet RxNorm: 109391 1 Tablet(s) PO QAM 06/26/20 19 2019 Inactive Ventolin HFA 90 mcg/actuation aerosol inhaler RxNorm: 880027 2 Puff(s) INH QID 06/26/20 19 2018 Inactive Please do not fill early. Please do not auto refill. This refill negates all other refills of this medication Singulair 10 mg tablet RxNorm: 163412 1 Tablet(s) PO daily 06/26/20 19 2019 Inactive This refill negates all other refills of this medication cetirizine 10 mg tablet RxNorm: 0955496 1 Tablet(s) PO daily 06/26/20 19 2019 Inactive This refill negates all other refills of this medication. Please do not auto refill levothyroxine 50 mcg tablet RxNorm: 647072 1 Tablet(s) PO daily 06/26/20 19 2019 Inactive This refill negates all other refills of this medication ranitidine 150 mg tablet RxNorm: 018043 1 Tablet(s) PO BID 06/26/20 19 2018 Inactive This refill negates all other refills of this medication Calcium 600-D3 Plus (mag-zinc) 600 mg calcium-800 unit-50 mg tablet RxNorm: 1 Tablet(s) PO daily take an additonal tablet for itching. 06/26/20 19 2018 Inactive This refill negates all other refills of this medication albuterol sulfate 2.5 mg/3 mL (0.083 %) solution for nebulization RxNorm: 885398 1 Vial INH QID 06/26/20 19 2018 Inactive 60/box. This refill negates all other refills of this medication. Please do not fill early. Please do not auto refill. lisinopril 2.5 mg tablet RxNorm: 870956 1 Tablet(s) PO daily 06/21/20 19 2019 Inactive gabapentin 300 mg capsule RxNorm: 436844 1 Capsule(s) PO TID 06/21/20 19 2019 Inactive atorvastatin 20 mg tablet RxNorm: 497269 1 Tablet(s) PO QHS 06/07/20 19 2018 Inactive This refill negates all other refills of this medication TRUEplus Lancets 30 gauge RxNorm: 1 Lancets Miscellaneous QA 05/29/20 19 2018 Inactive 100/box gabapentin 300 mg capsule RxNorm: 775771 1 Capsule(s) PO TID 05/03/20 19 2018 Inactive Flintstones Complete (iron) 18 mg iron chewable tablet RxNorm: 1 Tablet(s) PO daily 04/04/20 19 2021 Inactive This refill negates all other refills of this medication gabapentin 300 mg capsule RxNorm: 997522 1 Capsule(s) PO TID as needed 02/01/202018 Inactive True Metrix Glucose Test Strip RxNorm: 1 Test Strips Miscellaneous QA 02/01/20 19 2018 Inactive 100/container Alcohol Prep Pads RxNorm: 643718 1 Patch TOP QA 02/01/202018 Inactive TRUEplus Lancets 30 gauge RxNorm: 1 Lancets Miscellaneous QAM 02/01/20 19 2018 Inactive 100/box lisinopril 2.5 mg tablet RxNorm: 540062 1 Tablet(s) PO daily 12/28/19 19 2018 Inactive ranitidine 150 mg tablet RxNorm: 272720 1 Tablet(s) PO BID 10/21/19 19 2018 Inactive This refill negates all other refills of this medication albuterol sulfate 2.5 mg/3 mL (0.083 %) solution for nebulization RxNorm: 290988 1 Vial INH QID 10/21/19 19 2018 [...] this medication gabapentin 300 mg capsule RxNorm: 286948 1 Capsule(s) PO TID as needed 10/21/19 19 2018 Inactive atorvastatin 20 mg tablet RxNorm: 254614 1 Tablet(s) PO QHS 10/21/192018 Inactive This refill negates all other refills of this medication trazodone 50 mg tablet RxNorm: 503686 1 Tablet(s) PO QHS 10/21/192018 Inactive This refill negates all other refills of this medication Ventolin HFA 90 mcg/actuation aerosol inhaler RxNorm: 507815 2 Puff(s) INH QID 10/21/192018 Inactive Please do not fill early. Please do not auto refill. This refill negates all other refills of this medication Calcium 600-D3 Plus 600 mg calcium-800 unit-50 mg tablet RxNorm: 1 Tablet(s) PO daily take an additonal tablet for itching. 10/21/192018 Inactive This refill negates all other refills of this medication Singulair 10 mg tablet RxNorm: 736902 1 Tablet(s) PO daily 10/21/192018 Inactive This refill negates all other refills of this medication buspirone 7.5 mg tablet RxNorm: 162007 1 Tablet(s) PO BID 10/21/192018 Inactive This refill negates all other refills of this medication diclofenac sodium 75 mg tablet,delayed release RxNorm: 618562 1 Tablet(s) PO BID 10/21/192018 Inactive This refill negates all other refills of this medication hydrochlorothiazide 12.5 mg tablet RxNorm: 241165 1 Tablet(s) PO QAM 10/21/192018 Inactive metoprolol succinate ER 50 mg tablet,extended release 24 hr RxNorm: 658311 1 Tablet(s) PO daily 10/21/192018 Inactive This refill negates all other refills of this medication levothyroxine 50 mcg tablet RxNorm: 766063 1 Tablet(s) PO daily 10/21/192018 Inactive This refill negates all other refills of this medication cetirizine 10 mg tablet RxNorm: 0073168 1 Tablet(s) PO daily 10/21/192018 Inactive This refill negates all other refills of this medication. Please do not auto refill Flintstones Complete (iron) 18 mg iron chewable tablet RxNorm: 1 Tablet(s) PO daily 10/21/192018 Inactive This refill negates all other refills of this medication buspirone 7.5 mg tablet RxNorm: 663683 1 Tablet(s) PO BID 10/12/192018 Inactive cetirizine 10 mg tablet RxNorm: 3293121 1 Tablet(s) PO daily 09/28/202018 Inactive Guaiasorb DM 10 mg-100 mg/5 mL oral liquid RxNorm: 126509 10 Milliliter(s) PO As needed every 4 hr 09/24/202018 Inactive Vicks Vaporub 4.7 %-1.2 %-2.6 % topical ointment RxNorm: 7313260 1 Application TOP TID 09/24/20 18 2018 Inactive levmetamfetamine 50 mg nasal inhaler RxNorm: 1 Unit(s) NASAL Q3-4H 09/24/20 18 2017 Inactive sertraline 50 mg tablet RxNorm: 794800 1 Tablet(s) PO daily 09/09/20 18 2018 Inactive Please note dose trazodone 50 mg tablet RxNorm: 360247 1 Tablet(s) PO QHS 09/06/20 18 2018 Inactive sertraline 50 mg tablet RxNorm: 822695 1 Tablet(s) PO daily 09/06/20 18 2017 Inactive amoxicillin 500 mg tablet RxNorm: 431262 1 Tablet(s) PO Q12H 08/31/20 18 2017 Inactive albuterol sulfate 2.5 mg/3 mL (0.083 %) solution for nebulization RxNorm: 662675 1 Vial INH QID 08/10/20 18 2018 Inactive 60/box. Please do not fill early. Please do not auto refill. Prozac 10 mg capsule RxNorm: 087469 1 Capsule(s) PO daily 08/09/20 18 2017 Inactive buspirone 7.5 mg tablet RxNorm: 641455 1 Tablet(s) PO BID 08/09/20 18 2018 Inactive gabapentin 300 mg capsule RxNorm: 997887 1 Capsule(s) PO TID as needed 08/01/20 18 2018 Inactive hydrochlorothiazide 12.5 mg tablet RxNorm: 767468 1 Tablet(s) PO QAM 08/01/20 18 2018 Inactive ranitidine 150 mg tablet RxNorm: 662350 1 Tablet(s) PO BID 08/01/20 18 2018 Inactive Macrobid 100 mg capsule RxNorm: 309971 1 Capsule(s) PO Q12H 06/21/20 18 2017 Inactive Singulair 10 mg tablet RxNorm: 801491 1 Tablet(s) PO daily 06/14/20 18 2018 Inactive Ventolin HFA 90 mcg/actuation aerosol inhaler RxNorm: 1701758 2 Puff(s) INH QID 06/14/20 18 2018 Inactive Singulair 10 mg tablet RxNorm: 458136 1 Tablet(s) PO daily 06/14/20 18 2017 Inactive buspirone 7.5 mg tablet RxNorm: 188178 1 Tablet(s) PO BID 06/14/20 18 2017 Inactive Prozac 10 mg capsule RxNorm: 197301 1 Capsule(s) PO daily 06/14/20 18 2017 Inactive Neilmed Pediatric Sinus Rinse Refill packet RxNorm: 1 Unit Dose NASAL PRN 05/31/20 18 2021 Inactive diclofenac sodium 75 mg tablet,delayed release RxNorm: 615090 1 Tablet(s) PO BID 05/31/20 18 2017 Inactive lisinopril 2.5 mg tablet RxNorm: 273019 1 Tablet(s) PO daily 05/31/20 18 2017 Inactive metoprolol succinate ER 50 mg tablet,extended release 24 hr RxNorm: 827582 1 Tablet(s) PO daily 05/31/20 18 2017 Inactive levothyroxine 50 mcg tablet RxNorm: 981267 1 Tablet(s) PO daily 05/31/20 18 2017 Inactive TRUEplus Lancets 30 gauge RxNorm: 1 Lancets Miscellaneous QAM 05/31/20 18 2017 Inactive 100/box Ventolin HFA 90 mcg/actuation aerosol inhaler RxNorm: 621792 2 Puff(s) INH QID 05/31/20 18 2017 Inactive Aleve 220 mg capsule RxNorm: 5214178 1 Capsule(s) PO BID 05/31/20 18 2018 Inactive ranitidine 150 mg tablet RxNorm: 613170 1 Tablet(s) PO BID 05/31/20 18 2017 Inactive gabapentin 300 mg capsule RxNorm: 947904 1 Capsule(s) PO TID as needed 05/31/20 18 2017 Inactive atorvastatin 20 mg tablet RxNorm: 975878 1 Tablet(s) PO QHS 05/31/20 18 2017 Inactive True Metrix Glucose Test Strip RxNorm: 1 Test Strips Miscellaneous QAM 05/31/20 18 2017 Inactive 50/container Calcium 600-D3 Plus 600 mg calcium-800 unit-50 mg tablet RxNorm: 1 Tablet(s) PO daily take an additonal tablet for itching. 05/31/20 18 2017 Inactive hydrochlorothiazide 12.5 mg tablet RxNorm: 778925 1 Tablet(s) PO QAM 05/31/20 18 2017 Inactive Flintstones Complete (iron) 18 mg iron chewable tablet RxNorm: 1 Tablet(s) PO daily 05/31/20 18 2017 Inactive d-mannose oral powder RxNorm: PO 18 2021 Inactive True Metrix Glucose Meter RxNorm: miscellaneous 08/17/20 19 2018 Inactive sertraline 50 mg tablet RxNorm: 817717 1 Tablet(s) PO daily 11/28/19 20 2019 Inactive loperamide 2 mg tablet RxNorm: 014929 oral 09/29/20 19 2018 Inactive Symbicort 160 mcg-4.5 mcg/actuation HFA aerosol inhaler RxNorm: 9424239 2 Puff(s) INH BID 08/17/202018 Inactive Medication Administered No Medication Administered data Procedures Procedure Codes Date Tobacco Assessment/Screening CPT-4: TCA Fall Risk Assessment SNOMED CT: 73127156 4 CPT-4: DFRA 01/01/2020 Functional Assessment CPT-4: DFA 01/01/2020 [place] Assessment CPT-4: DSWA 11/04 Patient Health Questionnaire CPT-4: DPHQ [place] F[place] Assessment CPT-4: DSWA 10/03 Hypertension CPT-4: HTN 10/17/2019 Fall Risk Assessment SNOMED CT: 00966957 4 CPT-4: DFRA 09/19/2019 Functional Assessment CPT-4: DFA 09/19/2019 Urinalysis, dip stick CPT-4: 33455 06/21/2019 Tobacco Assessment/Screening CPT-4: TCA Patient Health Questionnaire CPT-4: DPHQ AHA/REBECCA Classification Assessment CPT-4: DAHA 04/25/2019 Controlled Substance Report CPT-4: CTRSU 04/03 Urinalysis, dip stick CPT-4: 68171 03/28/2019 Urinalysis, dip stick CPT-4: 55126 03/28/2019 [id number] CPT-4: 18035 Unknown [id number] CPT-4: 11615 Unknown Gynecology Referral SNOMED CT: 104035514 CPT-4: R14 Unknown Reason For Visit No Reason For Visit data Plan of Care Planned Activity Notes Codes Status Date Referral: Pending Gynecology Referral Information Referral Processed Referral: Pending Pulmonolog y Referral Information Referral Processed Referral: Pending Psychiatry Referral Information Referral Initiated Referral: Pending Respirator y Services Referral Information Referral Initiated Referral: Pending Ophthalmol ogy Referral Information Referral Initiated Referral: [facility] WPtel: [phone] [employer] Supervisor placed a call out to the patient to notify her that it has been recommended that she be seen by 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 Patient agreed to be seen, does not have a provider of choice and no transportation issues. [employer] Supervisor faxed referral and clinical notes to [facility] in [place], [place] near the patient's home. Patient to [...] seen and prefers a provider in the [place] or [place] area. [employer] Supervisor placed a call out to everyone listed in the area and the only location that was able to accept the patient's insurance was [place] [address] [place] [address] and spoke with Maylin. Maylin asked that the patient's referral, face sheet and visit notes be faxed to . [employer] Supervisor faxed over requested documents. Patient appointment confirmation letter generated and mailed to her home address. Patient to call to schedule an appointment. Processed Referral: [facility] WPtel: [address] [place] [address] [place], [place] [id number] Patient notified that it has been advised that she be seen by Neurology. Patient agreed to be seen and prefers to be seen by a provider in the [place], [place] area. Patient denies any concerns with transportation, and prefers to schedule her own appointment. [employer] Supervisor placed a call out to [facility] and spoke with Neeraj P: [...]
--- OUTSIDE RECORDS SUMMARY | 2023-12-07 02:10 | XMS_ITS | CCD ---
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 Name Role Phone Palomo KING, Anna Primary Care Provider Unav ailable Unavailable Chronic Care Management Unavaila ble Summary Purpose DataExchange Insurance Providers Payer name Policy type / Coverage type Covered green party ID Effective Begin Date Effective End Date SUKI MAYO [id number] Unknown Unknown Family history Mother Diagnosis Age [...] Unknown Disability 05/31/[address]: 349455643 Has never s moked or chewed tobacco 05/31/[address]: 710718294 Never drinks alco hol 05/31/2018 Has the [...] hypertension ICD-10: I10 ICD-9: 401.9 10/03/2018 Active [place] [facility] ICD-10: H10.029 ICD-9: 372.03 12/29/2019 Active [...] ICD-10: Z12.4 ICD-9: V76.2 04/25/2019 Active Other alf (current) dr edith therapy ICD-10: Z79.899 ICD-9: [...] Headache ICD-10: R51 ICD-9: 784.0 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) ICD-10: Z79.1 ICD-9: V58.64 06/13/2018 Active Medications Medication Codes Instructions Start Date Stop Date Status Fill Instructions cetirizine 10 mg tablet RxNorm: 1518004 1 Tablet(s) PO daily 01/17/20 20 2019 Inactive loperamide 2 mg tablet RxNorm: 266730 1 Tablet(s) Oral as needed take one tablet after each loose stool, maximum of 8 tablets in 24 hours 01/17/20 20 2019 Inactive quetiapine 100 mg tablet RxNorm: 869343 1 Tablet(s) Oral every night at bedtime 01/17/20 20 2019 Inactive levothyroxine 50 mcg tablet RxNorm: 933799 1 Tablet(s) PO daily 01/17/20 20 2020 Inactive gabapentin 300 mg capsule RxNorm: 013601 1 Capsule(s) PO TID 01/17/20 20 2019 Inactive lisinopril 2.5 mg tablet RxNorm: 959316 1 Tablet(s) PO daily 01/15/20 20 2020 Inactive Singulair 10 mg tablet RxNorm: 377888 1 Tablet(s) PO daily 01/15/20 20 2020 Inactive levothyroxine 50 mcg tablet RxNorm: 193089 1 Tablet(s) PO daily 01/15/20 20 2019 Inactive gabapentin 300 mg capsule RxNorm: 680989 1 Capsule(s) PO TID 01/15/20 20 2019 Inactive cetirizine 10 mg tablet RxNorm: 1702935 1 Tablet(s) PO daily 01/15/20 20 2019 Inactive gentamicin 0.3 % eye drops RxNorm: 743914 1 Drop(s) ophthalmic (eye) four times a day 12/29/19 20 2019 Inactive gentamicin 0.3 % eye drops RxNorm: 348093 1 Drop(s) ophthalmic (eye) four times a day 12/29/19 20 2019 Inactive gentamicin 0.3 % eye drops RxNorm: 305550 1 Drop(s) ophthalmic (eye) four times a day 12/29/19 20 2019 Inactive hydrochlorothiazide 25 mg tablet RxNorm: 196811 1 Tablet(s) Oral every day 12/21/19 20 2019 Inactive Sudafed 12 Hour 120 mg tablet,extended release RxNorm: 1648485 TAKE (1) TABLET BY MOUTH EVERY 12 HOURS NEEDED 12/21/19 20 2019 Inactive loperamide 2 mg tablet RxNorm: 644748 1 Tablet(s) Oral as needed take one tablet after each loose stool, maximum of 8 tablets in 24 hours 12/11/19 20 2019 Inactive loperamide 2 mg tablet RxNorm: 574451 1 Tablet(s) Oral as needed take one tablet after each loose stool, maximum of 8 tablets in 24 hours 12/11/19 20 2019 Inactive atorvastatin 40 mg tablet RxNorm: 895642 1 Tablet(s) Oral every day 11/29/19 20 2020 Inactive sertraline 100 mg tablet RxNorm: 220166 1 Tablet(s) Oral 11/28/19 20 2019 Inactive quetiapine 100 mg tablet RxNorm: 445590 1 Tablet(s) Oral every night at bedtime 11/28/19 20 2019 Inactive omeprazole 20 mg capsule,delayed release RxNorm: 749104 1 Capsule(s) Oral every day 11/20/19 20 2019 Inactive amoxicillin 250 mg capsule RxNorm: 661088 1 Capsule(s) Oral three times a day 11/07/19 20 2019 Inactive multivitamin with iron-mineral tablet RxNorm: 1 Tablet(s) Oral every day 10/29/192021 Inactive cetirizine 10 mg tablet RxNorm: 7692498 1 Tablet(s) PO daily 10/20/19 20 2019 Inactive This refill negates all other refills of this medication. Please do not auto refill Singulair 10 mg tablet RxNorm: 510627 1 Tablet(s) PO daily 10/20/19 20 2019 Inactive This refill negates all other refills of this medication gabapentin 300 mg capsule RxNorm: 429619 1 Capsule(s) PO TID 10/20/19 20 2019 Inactive lisinopril 2.5 mg tablet RxNorm: 637507 1 Tablet(s) PO daily 10/20/19 20 2019 Inactive levothyroxine 50 mcg tablet RxNorm: 110719 1 Tablet(s) PO daily 10/20/19 20 2019 Inactive This refill negates all other refills of this medication fenugreek seed extract 500 mg capsule RxNorm: 1 Capsule(s) Oral three times a day 10/17/19 20 2021 Inactive hydrochlorothiazide 25 mg tablet RxNorm: 093185 1 Tablet(s) Oral every day 10/17/19 20 2019 Inactive Alcohol Prep Pads RxNorm: 370039 1 Patch TOP QAM 10/16/19 20 2020 Inactive loperamide 2 mg tablet RxNorm: 544669 1 Tablet(s) Oral as needed take one [...] 2019 Inactive hydrochlorothiazide 25 mg tablet RxNorm: 798716 1 Tablet(s) Oral every day 09/19/20 19 2019 Inactive Sudafed 12 Hour 120 mg tablet,extended release RxNorm: 3873756 1 Tablet(s) Oral every 12 hours as needed 09/11/20 19 2018 Inactive omeprazole 20 mg capsule,delayed release RxNorm: 103616 1 Capsule(s) Oral every day 09/07/20 19 2019 Inactive Sudafed 12 Hour 120 mg tablet,extended release RxNorm: 4451217 1 Tablet(s) Oral every 12 hours as needed 09/04/20 19 2018 Inactive pantoprazole 40 mg tablet,delayed release RxNorm: 857491 1 Tablet(s) Oral every day 08/24/20 19 2018 Inactive discontinue any other H2Blkr. and PPI albuterol sulfate 2.5 mg/3 mL (0.083 %) solution for nebulization RxNorm: 459688 1 Vial Inhalation every four hours as needed as needed for dyspnea 08/17/20 19 2019 Inactive 60/box. This refill negates all other refills of this medication. Please do not fill early. Please do not auto refill. Symbicort 160 mcg-4.5 mcg/actuation HFA aerosol inhaler RxNorm: 2522070 2 Puff(s) INH BID 08/17/20 19 No Stop Date Active Alcohol Prep Pads RxNorm: 827071 1 Patch TOP QAM 08/17/20 19 2019 Inactive True Metrix Glucose Test Strip RxNorm: 1 Test Strips Miscellaneous QAM 08/09/20 19 2019 Inactive 100/container Ventolin HFA 90 mcg/actuation aerosol inhaler RxNorm: 243364 2 Puff(s) INH QID 08/09/20 19 2019 Inactive Please do not fill early. Please do not auto refill. This refill negates all other refills of this medication atorvastatin 40 mg tablet RxNorm: 258073 1 Tablet(s) Oral every day 07/04/20 19 2019 Inactive levmetamfetamine 50 mg nasal inhaler RxNorm: 1 Unit(s) NASAL Q3-4H Do not use more than every 3 hours or 8 times/24hours 06/26/20 19 2021 Inactive Please do not auto refill. This refill negates all other refills of this medication diclofenac sodium 75 mg tablet,delayed release RxNorm: 651448 1 Tablet(s) PO BID 06/26/20 19 2019 Inactive This refill negates all other refills of this medication buspirone 7.5 mg tablet RxNorm: 502052 1 Tablet(s) PO BID 06/26/20 19 2020 Inactive This refill negates all other refills of this medication hydrochlorothiazide 12.5 mg tablet RxNorm: 228941 1 Tablet(s) PO QAM 06/26/20 19 2019 Inactive Ventolin HFA 90 mcg/actuation aerosol inhaler RxNorm: 339574 2 Puff(s) INH QID 06/26/20 19 2018 Inactive Please do not fill early. Please do not auto refill. This refill negates all other refills of this medication Singulair 10 mg tablet RxNorm: 286464 1 Tablet(s) PO daily 06/26/20 19 2019 Inactive This refill negates all other refills of this medication cetirizine 10 mg tablet RxNorm: 7690874 1 Tablet(s) PO daily 06/26/20 19 2019 Inactive This refill negates all other refills of this medication. Please do not auto refill levothyroxine 50 mcg tablet RxNorm: 188834 1 Tablet(s) PO daily 06/26/20 19 2019 Inactive This refill negates all other refills of this medication ranitidine 150 mg tablet RxNorm: 819804 1 Tablet(s) PO BID 06/26/20 19 2018 Inactive This refill negates all other refills of this medication Calcium 600-D3 Plus (mag-zinc) 600 mg calcium-800 unit-50 mg tablet RxNorm: 1 Tablet(s) PO daily take an additonal tablet for itching. 06/26/20 19 2018 Inactive This refill negates all other refills of this medication albuterol sulfate 2.5 mg/3 mL (0.083 %) solution for nebulization RxNorm: 210200 1 Vial INH QID 06/26/20 19 2018 Inactive 60/box. This refill negates all other refills of this medication. Please do not fill early. Please do not auto refill. lisinopril 2.5 mg tablet RxNorm: 875257 1 Tablet(s) PO daily 06/21/20 19 2019 Inactive gabapentin 300 mg capsule RxNorm: 096490 1 Capsule(s) PO TID 06/21/20 19 2019 Inactive atorvastatin 20 mg tablet RxNorm: 662408 1 Tablet(s) PO QHS 06/07/20 19 2018 Inactive This refill negates all other refills of this medication TRUEplus Lancets 30 gauge RxNorm: 1 Lancets Miscellaneous QAM 05/29/20 19 2018 Inactive 100/box gabapentin 300 mg capsule RxNorm: 782098 1 Capsule(s) PO TID 05/03/20 19 2018 Inactive Flintstones Complete (iron) 18 mg iron chewable tablet RxNorm: 1 Tablet(s) PO daily 04/04/20 19 2021 Inactive This refill negates all other refills of this medication gabapentin 300 mg capsule RxNorm: 130651 1 Capsule(s) PO TID as needed 02/01/20 19 2018 Inactive True Metrix Glucose Test Strip RxNorm: 1 Test Strips Miscellaneous QAM 02/01/20 19 2018 Inactive 100/container Alcohol Prep Pads RxNorm: 674153 1 Patch TOP QAM 02/01/20 19 2018 Inactive TRUEplus Lancets 30 gauge RxNorm: 1 Lancets Miscellaneous QAM 02/01/20 19 2018 Inactive 100/box lisinopril 2.5 mg tablet RxNorm: 150722 1 Tablet(s) PO daily 12/28/19 19 2018 Inactive ranitidine 150 mg tablet RxNorm: 537738 1 Tablet(s) PO BID 10/21/19 19 2018 Inactive This refill negates all other refills of this medication albuterol sulfate 2.5 mg/3 mL (0.083 %) solution for nebulization RxNorm: 001656 1 Vial INH QID 10/21/19 19 2018 [...] this medication gabapentin 300 mg capsule RxNorm: 913099 1 Capsule(s) PO TID as needed 10/21/19 19 2018 Inactive atorvastatin 20 mg tablet RxNorm: 094243 1 Tablet(s) PO QHS 10/21/19 19 2018 Inactive This refill negates all other refills of this medication trazodone 50 mg tablet RxNorm: 381555 1 Tablet(s) PO QHS 10/21/19 19 2018 Inactive This refill negates all other refills of this medication Ventolin HFA 90 mcg/actuation aerosol inhaler RxNorm: 214765 2 Puff(s) INH QID 10/21/19 19 2018 [...] this medication Singulair 10 mg tablet RxNorm: 090229 1 Tablet(s) PO daily 10/21/192018 Inactive This refill negates all other refills of this medication buspirone 7.5 mg tablet RxNorm: 971730 1 Tablet(s) PO BID 10/21/192018 Inactive This refill negates all other refills of this medication diclofenac sodium 75 mg tablet,delayed release RxNorm: 215114 1 Tablet(s) PO BID 10/21/192018 Inactive This refill negates all other refills of this medication hydrochlorothiazide 12.5 mg tablet RxNorm: 449159 1 Tablet(s) PO QAM 10/21/192018 Inactive metoprolol succinate ER 50 mg tablet,extended release 24 hr RxNorm: 519038 1 Tablet(s) PO daily 10/21/192018 Inactive This refill negates all other refills of this medication levothyroxine 50 mcg tablet RxNorm: 048842 1 Tablet(s) PO daily 10/21/192018 Inactive This refill negates all other refills of this medication cetirizine 10 mg tablet RxNorm: 2555031 1 Tablet(s) PO daily 10/21/192018 Inactive This refill negates all other refills of this medication. Please do not auto refill Flintstones Complete (iron) 18 mg iron chewable tablet RxNorm: 1 Tablet(s) PO daily 10/21/192018 Inactive This refill negates all other refills of this medication buspirone 7.5 mg tablet RxNorm: 427803 1 Tablet(s) PO BID 10/12/19 19 2018 Inactive cetirizine 10 mg tablet RxNorm: 3138026 1 Tablet(s) PO daily 09/28/20 18 2018 Inactive Guaiasorb DM 10 mg-100 mg/5 mL oral liquid RxNorm: 384803 10 Milliliter(s) PO As needed every 4 hr 09/24/20 18 2018 Inactive Vicks Vaporub 4.7 %-1.2 %-2.6 % topical ointment RxNorm: 0225595 1 Application TOP TID 09/24/20 18 2018 Inactive levmetamfetamine 50 mg nasal inhaler RxNorm: 1 Unit(s) NASAL Q3-4H 09/24/20 18 2017 Inactive sertraline 50 mg tablet RxNorm: 254339 1 Tablet(s) PO daily 09/09/20 18 2018 Inactive Please note dose trazodone 50 mg tablet RxNorm: 111994 1 Tablet(s) PO QHS 09/06/20 18 2018 Inactive sertraline 50 mg tablet RxNorm: 771899 1 Tablet(s) PO daily 09/06/20 18 2017 Inactive amoxicillin 500 mg tablet RxNorm: 476766 1 Tablet(s) PO Q12H 08/31/20 18 2017 Inactive albuterol sulfate 2.5 mg/3 mL (0.083 %) solution for nebulization RxNorm: 754788 1 Vial INH QID 08/10/202018 Inactive 60/box. Please do not fill early. Please do not auto refill. Prozac 10 mg capsule RxNorm: 218946 1 Capsule(s) PO daily 08/09/20 18 2017 Inactive buspirone 7.5 mg tablet RxNorm: 939367 1 Tablet(s) PO BID 08/09/20 18 2018 Inactive gabapentin 300 mg capsule RxNorm: 676454 1 Capsule(s) PO TID as needed 08/01/20 18 2018 Inactive hydrochlorothiazide 12.5 mg tablet RxNorm: 997539 1 Tablet(s) PO QAM 08/01/20 18 2018 Inactive ranitidine 150 mg tablet RxNorm: 979444 1 Tablet(s) PO BID 08/01/20 18 2018 Inactive Macrobid 100 mg capsule RxNorm: 793123 1 Capsule(s) PO Q12H 06/21/20 18 2017 Inactive Singulair 10 mg tablet RxNorm: 602671 1 Tablet(s) PO daily 06/14/20 18 2018 Inactive Ventolin HFA 90 mcg/actuation aerosol inhaler RxNorm: 9003566 2 Puff(s) INH QID 06/14/20 18 2018 Inactive Singulair 10 mg tablet RxNorm: 550334 1 Tablet(s) PO daily 06/14/20 18 2017 Inactive buspirone 7.5 mg tablet RxNorm: 328584 1 Tablet(s) PO BID 06/14/20 18 2017 Inactive Prozac 10 mg capsule RxNorm: 770625 1 Capsule(s) PO daily 06/14/20 18 2017 Inactive Neilmed Pediatric Sinus Rinse Refill packet RxNorm: 1 Unit Dose NASAL PRN 05/31/20 18 2021 Inactive diclofenac sodium 75 mg tablet,delayed release RxNorm: 568694 1 Tablet(s) PO BID 05/31/20 18 2017 Inactive lisinopril 2.5 mg tablet RxNorm: 621465 1 Tablet(s) PO daily 05/31/20 18 2017 Inactive metoprolol succinate ER 50 mg tablet,extended release 24 hr RxNorm: 234574 1 Tablet(s) PO daily 05/31/20 18 2017 Inactive levothyroxine 50 mcg tablet RxNorm: 212757 1 Tablet(s) PO daily 05/31/20 18 2017 Inactive TRUEplus Lancets 30 gauge RxNorm: 1 Lancets Miscellaneous QAM 05/31/20 18 2017 Inactive 100/box Ventolin HFA 90 mcg/actuation aerosol inhaler RxNorm: 339653 2 Puff(s) INH QID 05/31/20 18 2017 Inactive Aleve 220 mg capsule RxNorm: 2918366 1 Capsule(s) PO BID 05/31/20 18 2018 Inactive ranitidine 150 mg tablet RxNorm: 582443 1 Tablet(s) PO BID 05/31/20 18 2017 Inactive gabapentin 300 mg capsule RxNorm: 347745 1 Capsule(s) PO TID as needed 05/31/20 18 2017 Inactive atorvastatin 20 mg tablet RxNorm: 830694 1 Tablet(s) PO QHS 05/31/20 18 2017 Inactive True Metrix Glucose Test Strip RxNorm: 1 Test Strips Miscellaneous [facility] 05/31/20 18 2017 Inactive 50/container Calcium 600-D3 Plus 600 mg calcium-800 unit-50 mg tablet RxNorm: 1 Tablet(s) PO daily take an additonal tablet for itching. 05/31/20 18 2017 Inactive hydrochlorothiazide 12.5 mg tablet RxNorm: 009064 1 Tablet(s) PO QAM 05/31/20 18 2017 Inactive Flintstones Complete (iron) 18 mg iron chewable tablet RxNorm: 1 Tablet(s) PO daily 05/31/20 18 2017 Inactive d-mannose oral powder RxNorm: PO 18 2021 Inactive True Metrix Glucose Meter RxNorm: miscellaneous 08/17/20 19 2018 Inactive sertraline 50 mg tablet RxNorm: 720116 1 Tablet(s) PO daily 11/28/19 20 2019 Inactive loperamide 2 mg tablet RxNorm: 208910 oral 09/29/20 19 2018 Inactive Symbicort 160 mcg-4.5 mcg/actuation HFA aerosol inhaler RxNorm: 7811018 2 Puff(s) INH BID 08/17/20 19 2018 Inactive Medication Administered No Medication Administered data Procedures Procedure Codes Date Tobacco Assessment/Screening CPT-4: TCA Fall Risk Assessment SNOMED CT: 26984499 4 CPT-4: DFRA 01/01/2020 Functional Assessment CPT-4: DFA 01/01/2020 [place] Fany Assessment CPT-4: DSWA 11/04 Patient Health Questionnaire CPT-4: DPHQ [place] Fany Assessment CPT-4: DSWA 10/03 Hypertension CPT-4: HTN 10/17/2019 Fall Risk Assessment SNOMED CT: 80759388 4 CPT-4: DFRA 09/19/2019 Functional Assessment CPT-4: DFA 09/19/2019 Urinalysis, dip stick CPT-4: 28382 06/21/2019 Tobacco Assessment/Screening CPT-4: TCA Patient Health Questionnaire CPT-4: DPHQ AHA/REBECCA Classification Assessment CPT-4: DAHA 04/25/2019 Controlled Substance Report CPT-4: CTRSU 04/03 Urinalysis, dip stick CPT-4: 30509 03/28/2019 Urinalysis, dip stick CPT-4: 33712 03/28/2019 [id number] CPT-4: 17502 Unknown [id number] CPT-4: 27239 Unknown Gynecology Referral SNOMED CT: 299869963 CPT-4: R14 Unknown Reason For Visit No Reason For Visit data Plan of Care Planned Activity Notes Codes Status Date Referral: Pending Gynecology Referral Information Referral Processed Referral: Pending Pulmonolog y Referral Information Referral Processed Referral: Pending Psychiatry Referral Information Referral Initiated Referral: Pending Respirator y Services Referral Information Referral Initiated Referral: Pending Ophthalmol ogy Referral Information Referral Initiated Referral: [facility] WPtel: [address] [place] [address] Applications System Analyst placed a call out to the patient to notify her that it has been recommended that she be seen by 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 Patient agreed to be seen, does not have a provider of choice and no transportation issues. Applications System Analyst faxed referral and clinical notes to [facility] in [place], [place] near the patient's home. Patient to [...] seen and prefers a provider in the [place] or [place] area. Applications System Analyst placed a call out to everyone listed in the area and the only location that was able to accept the patient's insurance was [facility] [address] [place] [address] and spoke with Maylin. Maylin asked that the patient's referral, face sheet and visit notes be faxed to . Applications System Analyst faxed over requested documents. Patient appointment confirmation letter generated and mailed to her home address. Patient to call to schedule an appointment. Processed Referral: [facility] WPtel: [address] [facility] [address] [place], [place] [id number] Patient notified that it has been advised that she be seen by Neurology. Patient agreed to be seen and prefers to be seen by a provider in the [place], [place] area. Patient denies any concerns with transportation, and prefers to schedule her own appointment. Applications System Analyst placed a call out to [facility] and spoke with [...]
--- OUTSIDE RECORDS SUMMARY | 2023-12-07 02:10 | XMS_ITS | CCD ---
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 Copy Lathe Tender Name Role Phone Palomo KING, Anna Primary Care Provider Unav ailable Unavailable Chronic Care Management Unavaila ble Summary Purpose DataExchange Insurance Providers Payer name Policy type / Coverage type Covered democrat ID Effective Begin Date Effective End Date SUKI MAYO [id number] Unknown Unknown Family history Mother Diagnosis Age [...] Unknown Disability 05/31/[address]: 933852560 Has never s moked or chewed tobacco 05/31/[address]: 223891746 Never drinks alco hol 05/31/2018 Has the [...] hypertension ICD-10: I10 ICD-9: 401.9 10/03/2018 Active [place] [facility] ICD-10: H10.029 ICD-9: 372.03 12/29/2019 Active [...] Fill Instructions levothyroxine 50 mcg tablet RxNorm: 938770 1 Tablet(s) PO daily 01/15/20 20 2019 Inactive lisinopril 2.5 mg tablet RxNorm: 845442 1 Tablet(s) PO daily 01/15/20 20 2020 Inactive gabapentin 300 mg capsule RxNorm: 388636 1 Capsule(s) PO TID 01/15/20 20 2019 Inactive cetirizine 10 mg tablet RxNorm: 7495127 1 Tablet(s) PO daily 01/15/20 20 2019 Inactive Singulair 10 mg tablet RxNorm: 521713 1 Tablet(s) PO daily 01/15/20 20 2020 Inactive gentamicin 0.3 % eye drops RxNorm: 636951 1 Drop(s) ophthalmic (eye) four times a day 12/29/19 20 2019 Inactive gentamicin 0.3 % eye drops RxNorm: 587066 1 Drop(s) ophthalmic (eye) four times a day 12/29/19 20 2019 Inactive gentamicin 0.3 % eye drops RxNorm: 904537 1 Drop(s) ophthalmic (eye) four times a day 12/29/19 20 2019 Inactive hydrochlorothiazide 25 mg tablet RxNorm: 012913 1 Tablet(s) Oral every day 12/21/192019 Inactive Sudafed 12 Hour 120 mg tablet,extended release RxNorm: 0717280 TAKE (1) TABLET BY MOUTH EVERY 12 HOURS NEEDED 12/21/19 20 2019 Inactive loperamide 2 mg tablet RxNorm: 958656 1 Tablet(s) Oral as needed take one tablet after each loose stool, maximum of 8 tablets in 24 hours 12/11/19 20 2019 Inactive loperamide 2 mg tablet RxNorm: 795436 1 Tablet(s) Oral as needed take one tablet after each loose stool, maximum of 8 tablets in 24 hours 12/11/19 20 2019 Inactive atorvastatin 40 mg tablet RxNorm: 942933 1 Tablet(s) Oral every day 11/29/19 20 2020 Inactive quetiapine 100 mg tablet RxNorm: 275965 1 Tablet(s) Oral every night at bedtime 11/28/19 20 2019 Inactive sertraline 100 mg tablet RxNorm: 170526 1 Tablet(s) Oral 11/28/19 20 2019 Inactive omeprazole 20 mg capsule,delayed release RxNorm: 827070 1 Capsule(s) Oral every day 11/20/19 20 2019 Inactive amoxicillin 250 mg capsule RxNorm: 698827 1 Capsule(s) Oral three times a day 11/07/19 20 2019 Inactive multivitamin with iron-mineral tablet RxNorm: 1 Tablet(s) Oral every day 10/29/19 20 2021 Inactive cetirizine 10 mg tablet RxNorm: 0804203 1 Tablet(s) PO daily 10/20/19 20 2019 Inactive This refill negates all other refills of this medication. Please do not auto refill Singulair 10 mg tablet RxNorm: 126962 1 Tablet(s) PO daily 10/20/19 20 2019 Inactive This refill negates all other refills of this medication gabapentin 300 mg capsule RxNorm: 373855 1 Capsule(s) PO TID 10/20/19 20 2019 Inactive lisinopril 2.5 mg tablet RxNorm: 485728 1 Tablet(s) PO daily 10/20/19 20 2019 Inactive levothyroxine 50 mcg tablet RxNorm: 852663 1 Tablet(s) PO daily 10/20/19 20 2019 Inactive This refill negates all other refills of this medication fenugreek seed extract 500 mg capsule RxNorm: 1 Capsule(s) Oral three times a day 10/17/19 20 2021 Inactive hydrochlorothiazide 25 mg tablet RxNorm: 270944 1 Tablet(s) Oral every day 10/17/19 20 2019 Inactive Alcohol Prep Pads RxNorm: 743359 1 Patch TOP QAM 10/16/19 20 2020 Inactive loperamide 2 mg tablet RxNorm: 395815 1 Tablet(s) Oral as needed take one [...] 2019 Inactive hydrochlorothiazide 25 mg tablet RxNorm: 944939 1 Tablet(s) Oral every day 09/19/20 19 2019 Inactive Sudafed 12 Hour 120 mg tablet,extended release RxNorm: 8059016 1 Tablet(s) Oral every 12 hours as needed 09/11/20 19 2018 Inactive omeprazole 20 mg capsule,delayed release RxNorm: 608409 1 Capsule(s) Oral every day 09/07/20 19 2019 Inactive Sudafed 12 Hour 120 mg tablet,extended release RxNorm: 5448157 1 Tablet(s) Oral every 12 hours as needed 09/04/20 19 2018 Inactive pantoprazole 40 mg tablet,delayed release RxNorm: 164505 1 Tablet(s) Oral every day 08/24/202018 Inactive discontinue any other H2Blkr. and PPI albuterol sulfate 2.5 mg/3 mL (0.083 %) solution for nebulization RxNorm: 586843 1 Vial Inhalation every four hours as needed as needed for dyspnea 08/17/202019 Inactive 60/box. This refill negates all other refills of this medication. Please do not fill early. Please do not auto refill. Symbicort 160 mcg-4.5 mcg/actuation HFA aerosol inhaler RxNorm: 5413112 2 Puff(s) INH BID 08/17/20 19 No Stop Date Active Alcohol Prep Pads RxNorm: 454748 1 Patch TOP QAM 08/17/20 19 2019 Inactive True Metrix Glucose Test Strip RxNorm: 1 Test Strips Miscellaneous QAM 08/09/20 19 2019 Inactive 100/container Ventolin HFA 90 mcg/actuation aerosol inhaler RxNorm: 885822 2 Puff(s) INH QID 08/09/20 19 2019 Inactive Please do not fill early. Please do not auto refill. This refill negates all other refills of this medication atorvastatin 40 mg tablet RxNorm: 956994 1 Tablet(s) Oral every day 07/04/20 19 2019 Inactive levmetamfetamine 50 mg nasal inhaler RxNorm: 1 Unit(s) NASAL Q3-4H Do not use more than every 3 hours or 8 times/24hours 06/26/20 19 2021 Inactive Please do not auto refill. This refill negates all other refills of this medication diclofenac sodium 75 mg tablet,delayed release RxNorm: 950157 1 Tablet(s) PO BID 06/26/20 19 2019 Inactive This refill negates all other refills of this medication buspirone 7.5 mg tablet RxNorm: 531569 1 Tablet(s) PO BID 06/26/20 19 2020 Inactive This refill negates all other refills of this medication hydrochlorothiazide 12.5 mg tablet RxNorm: 160635 1 Tablet(s) PO QAM 06/26/20 19 2019 Inactive Ventolin HFA 90 mcg/actuation aerosol inhaler RxNorm: 763531 2 Puff(s) INH QID 06/26/20 19 2018 Inactive Please do not fill early. Please do not auto refill. This refill negates all other refills of this medication Singulair 10 mg tablet RxNorm: 241074 1 Tablet(s) PO daily 06/26/20 19 2019 Inactive This refill negates all other refills of this medication cetirizine 10 mg tablet RxNorm: 0941217 1 Tablet(s) PO daily 06/26/20 19 2019 Inactive This refill negates all other refills of this medication. Please do not auto refill levothyroxine 50 mcg tablet RxNorm: 477795 1 Tablet(s) PO daily 06/26/20 19 2019 Inactive This refill negates all other refills of this medication ranitidine 150 mg tablet RxNorm: 474024 1 Tablet(s) PO BID 06/26/20 19 2018 Inactive This refill negates all other refills of this medication Calcium 600-D3 Plus (mag-zinc) 600 mg calcium-800 unit-50 mg tablet RxNorm: 1 Tablet(s) PO daily take an additonal tablet for itching. 06/26/20 19 2018 Inactive This refill negates all other refills of this medication albuterol sulfate 2.5 mg/3 mL (0.083 %) solution for nebulization RxNorm: 617279 1 Vial INH QID 06/26/20 19 2018 Inactive 60/box. This refill negates all other refills of this medication. Please do not fill early. Please do not auto refill. lisinopril 2.5 mg tablet RxNorm: 875126 1 Tablet(s) PO daily 06/21/20 19 2019 Inactive gabapentin 300 mg capsule RxNorm: 688003 1 Capsule(s) PO TID 06/21/20 19 2019 Inactive atorvastatin 20 mg tablet RxNorm: 728545 1 Tablet(s) PO QHS 06/07/20 19 2018 Inactive This refill negates all other refills of this medication TRUEplus Lancets 30 gauge RxNorm: 1 Lancets Miscellaneous QA 05/29/20 19 2018 Inactive 100/box gabapentin 300 mg capsule RxNorm: 596378 1 Capsule(s) PO TID 05/03/20 19 2018 Inactive Flintstones Complete (iron) 18 mg iron chewable tablet RxNorm: 1 Tablet(s) PO daily 04/04/20 19 2021 Inactive This refill negates all other refills of this medication gabapentin 300 mg capsule RxNorm: 485562 1 Capsule(s) PO TID as needed 02/01/202018 Inactive True Metrix Glucose Test Strip RxNorm: 1 Test Strips Miscellaneous QA 02/01/20 19 2018 Inactive 100/container Alcohol Prep Pads RxNorm: 133489 1 Patch TOP QA 02/01/202018 Inactive TRUEplus Lancets 30 gauge RxNorm: 1 Lancets Miscellaneous QAM 02/01/20 19 2018 Inactive 100/box lisinopril 2.5 mg tablet RxNorm: 488507 1 Tablet(s) PO daily 12/28/19 19 2018 Inactive ranitidine 150 mg tablet RxNorm: 556203 1 Tablet(s) PO BID 10/21/19 19 2018 Inactive This refill negates all other refills of this medication albuterol sulfate 2.5 mg/3 mL (0.083 %) solution for nebulization RxNorm: 400618 1 Vial INH QID 10/21/19 19 2018 [...] this medication gabapentin 300 mg capsule RxNorm: 605161 1 Capsule(s) PO TID as needed 10/21/19 19 2018 Inactive atorvastatin 20 mg tablet RxNorm: 139403 1 Tablet(s) PO QHS 10/21/192018 Inactive This refill negates all other refills of this medication trazodone 50 mg tablet RxNorm: 170471 1 Tablet(s) PO QHS 10/21/192018 Inactive This refill negates all other refills of this medication Ventolin HFA 90 mcg/actuation aerosol inhaler RxNorm: 943482 2 Puff(s) INH QID 10/21/192018 Inactive Please do not fill early. Please do not auto refill. This refill negates all other refills of this medication Calcium 600-D3 Plus 600 mg calcium-800 unit-50 mg tablet RxNorm: 1 Tablet(s) PO daily take an additonal tablet for itching. 10/21/192018 Inactive This refill negates all other refills of this medication Singulair 10 mg tablet RxNorm: 320588 1 Tablet(s) PO daily 10/21/192018 Inactive This refill negates all other refills of this medication buspirone 7.5 mg tablet RxNorm: 302982 1 Tablet(s) PO BID 10/21/192018 Inactive This refill negates all other refills of this medication diclofenac sodium 75 mg tablet,delayed release RxNorm: 601356 1 Tablet(s) PO BID 10/21/192018 Inactive This refill negates all other refills of this medication hydrochlorothiazide 12.5 mg tablet RxNorm: 499409 1 Tablet(s) PO QAM 10/21/192018 Inactive metoprolol succinate ER 50 mg tablet,extended release 24 hr RxNorm: 338247 1 Tablet(s) PO daily 10/21/192018 Inactive This refill negates all other refills of this medication levothyroxine 50 mcg tablet RxNorm: 428846 1 Tablet(s) PO daily 10/21/192018 Inactive This refill negates all other refills of this medication cetirizine 10 mg tablet RxNorm: 3628839 1 Tablet(s) PO daily 10/21/192018 Inactive This refill negates all other refills of this medication. Please do not auto refill Flintstones Complete (iron) 18 mg iron chewable tablet RxNorm: 1 Tablet(s) PO daily 10/21/192018 Inactive This refill negates all other refills of this medication buspirone 7.5 mg tablet RxNorm: 321367 1 Tablet(s) PO BID 10/12/192018 Inactive cetirizine 10 mg tablet RxNorm: 0845826 1 Tablet(s) PO daily 09/28/202018 Inactive Guaiasorb DM 10 mg-100 mg/5 mL oral liquid RxNorm: 241051 10 Milliliter(s) PO As needed every 4 hr 09/24/202018 Inactive Vicks Vaporub 4.7 %-1.2 %-2.6 % topical ointment RxNorm: 1220038 1 Application TOP TID 09/24/20 18 2018 Inactive levmetamfetamine 50 mg nasal inhaler RxNorm: 1 Unit(s) NASAL Q3-4H 09/24/20 18 2017 Inactive sertraline 50 mg tablet RxNorm: 519004 1 Tablet(s) PO daily 09/09/20 18 2018 Inactive Please note dose trazodone 50 mg tablet RxNorm: 626515 1 Tablet(s) PO QHS 09/06/20 18 2018 Inactive sertraline 50 mg tablet RxNorm: 485284 1 Tablet(s) PO daily 09/06/20 18 2017 Inactive amoxicillin 500 mg tablet RxNorm: 110575 1 Tablet(s) PO Q12H 08/31/20 18 2017 Inactive albuterol sulfate 2.5 mg/3 mL (0.083 %) solution for nebulization RxNorm: 713623 1 Vial INH QID 08/10/20 18 2018 Inactive 60/box. Please do not fill early. Please do not auto refill. Prozac 10 mg capsule RxNorm: 499825 1 Capsule(s) PO daily 08/09/20 18 2017 Inactive buspirone 7.5 mg tablet RxNorm: 918719 1 Tablet(s) PO BID 08/09/20 18 2018 Inactive gabapentin 300 mg capsule RxNorm: 741738 1 Capsule(s) PO TID as needed 08/01/20 18 2018 Inactive hydrochlorothiazide 12.5 mg tablet RxNorm: 652125 1 Tablet(s) PO QAM 08/01/20 18 2018 Inactive ranitidine 150 mg tablet RxNorm: 142833 1 Tablet(s) PO BID 08/01/20 18 2018 Inactive Macrobid 100 mg capsule RxNorm: 286848 1 Capsule(s) PO Q12H 06/21/20 18 2017 Inactive Singulair 10 mg tablet RxNorm: 035144 1 Tablet(s) PO daily 06/14/20 18 2018 Inactive Ventolin HFA 90 mcg/actuation aerosol inhaler RxNorm: 0090632 2 Puff(s) INH QID 06/14/20 18 2018 Inactive Singulair 10 mg tablet RxNorm: 731546 1 Tablet(s) PO daily 06/14/20 18 2017 Inactive buspirone 7.5 mg tablet RxNorm: 791529 1 Tablet(s) PO BID 06/14/20 18 2017 Inactive Prozac 10 mg capsule RxNorm: 038265 1 Capsule(s) PO daily 06/14/20 18 2017 Inactive Neilmed Pediatric Sinus Rinse Refill packet RxNorm: 1 Unit Dose NASAL PRN 05/31/20 18 2021 Inactive diclofenac sodium 75 mg tablet,delayed release RxNorm: 016131 1 Tablet(s) PO BID 05/31/20 18 2017 Inactive lisinopril 2.5 mg tablet RxNorm: 082837 1 Tablet(s) PO daily 05/31/20 18 2017 Inactive metoprolol succinate ER 50 mg tablet,extended release 24 hr RxNorm: 814895 1 Tablet(s) PO daily 05/31/20 18 2017 Inactive levothyroxine 50 mcg tablet RxNorm: 240730 1 Tablet(s) PO daily 05/31/20 18 2017 Inactive TRUEplus Lancets 30 gauge RxNorm: 1 Lancets Miscellaneous QAM 05/31/20 18 2017 Inactive 100/box Ventolin HFA 90 mcg/actuation aerosol inhaler RxNorm: 887964 2 Puff(s) INH QID 05/31/20 18 2017 Inactive Aleve 220 mg capsule RxNorm: 3283240 1 Capsule(s) PO BID 05/31/20 18 2018 Inactive ranitidine 150 mg tablet RxNorm: 492687 1 Tablet(s) PO BID 05/31/20 18 2017 Inactive gabapentin 300 mg capsule RxNorm: 738272 1 Capsule(s) PO TID as needed 05/31/20 18 2017 Inactive atorvastatin 20 mg tablet RxNorm: 200090 1 Tablet(s) PO QHS 05/31/20 18 2017 Inactive True Metrix Glucose Test Strip RxNorm: 1 Test Strips Miscellaneous QAM 05/31/20 18 2017 Inactive 50/container Calcium 600-D3 Plus 600 mg calcium-800 unit-50 mg tablet RxNorm: 1 Tablet(s) PO daily take an additonal tablet for itching. 05/31/20 18 2017 Inactive hydrochlorothiazide 12.5 mg tablet RxNorm: 460265 1 Tablet(s) PO QAM 05/31/20 18 2017 Inactive Flintstones Complete (iron) 18 mg iron chewable tablet RxNorm: 1 Tablet(s) PO daily 05/31/20 18 2017 Inactive d-mannose oral powder RxNorm: PO 18 2021 Inactive True Metrix Glucose Meter RxNorm: miscellaneous 08/17/20 19 2018 Inactive sertraline 50 mg tablet RxNorm: 102890 1 Tablet(s) PO daily 11/28/19 20 2019 Inactive loperamide 2 mg tablet RxNorm: 464660 oral 09/29/20 19 2018 Inactive Symbicort 160 mcg-4.5 mcg/actuation HFA aerosol inhaler RxNorm: 3755068 2 Puff(s) INH BID 08/17/202018 Inactive Medication Administered No Medication Administered data Procedures Procedure Codes Date Tobacco Assessment/Screening CPT-4: TCA Fall Risk Assessment SNOMED CT: 61587726 4 CPT-4: DFRA 01/01/2020 Functional Assessment CPT-4: DFA 01/01/2020 Preston Fany Assessment CPT-4: DSWA 11/04 Patient Health Questionnaire CPT-4: DPHQ Preston Fany Assessment CPT-4: DSWA 10/03 Hypertension CPT-4: HTN 10/17/2019 Fall Risk Assessment SNOMED CT: 28433596 4 CPT-4: DFRA 09/19/2019 Functional Assessment CPT-4: DFA 09/19/2019 Urinalysis, dip stick CPT-4: 07475 06/21/2019 Tobacco Assessment/Screening CPT-4: TCA Patient Health Questionnaire CPT-4: DPHQ AHA/REBECCA Classification Assessment CPT-4: DAHA 04/25/2019 Controlled Substance Report CPT-4: CTRSU 04/03 Urinalysis, dip stick CPT-4: 45051 03/28/2019 Urinalysis, dip stick CPT-4: 80100 03/28/2019 [id number] CPT-4: 31962 Unknown [id number] CPT-4: 47235 Unknown Gynecology Referral SNOMED CT: 165949971 CPT-4: R14 Unknown Reason For Visit No Reason For Visit data Plan of Care Planned Activity Notes Codes Status Date Referral: Pending Gynecology Referral Information Referral Processed Referral: Pending Pulmonolog y Referral Information Referral Processed Referral: Pending Psychiatry Referral Information Referral Initiated Referral: Pending Respirator y Services Referral Information Referral Initiated Referral: Pending Ophthalmol ogy Referral Information Referral Initiated Referral: [facility] WPtel: [address] [employer] placed a call out to the patient to notify her that it has been recommended that she be seen by 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 Patient agreed to be seen, does not have a provider of choice and no transportation issues. [employer] faxed referral and clinical notes to [facility] in [place], [place] near the patient's home. Patient to [...] seen and prefers a provider in the [place] or [place] area. [employer] placed a call out to everyone listed in the area and the only location that was able to accept the patient's insurance was [place] [address] [place] [address] and spoke with Maylin. Maylin asked that the patient's referral, face sheet and visit notes be faxed to . [employer] faxed over requested documents. Patient appointment confirmation letter generated and mailed to her home address. Patient to call to schedule an appointment. Processed Referral: [facility] WPtel: [address] [place] [address] [place], [place] [id number] Patient notified that it has been advised that she be seen by Neurology. Patient agreed to be seen and prefers to be seen by a provider in the [place], [place] area. Patient denies any concerns with transportation, and prefers to schedule her own appointment. [employer] placed a call out to [facility] and spoke with Neeraj P: [...]
--- OUTSIDE RECORDS SUMMARY | 2023-12-07 02:10 | XMS_ITS | CCD ---
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 User Support Analyst Supervisor Name Role Phone Palomo KING, Anna Primary Care Provider Unav ailable Unavailable Chronic Care Management Unavaila ble Summary Purpose DataExchange Insurance Providers Payer name Policy type / Coverage type Covered constitution party ID Effective Begin Date Effective End Date SUKI MAYO [id number] Unknown Unknown Family history Mother Diagnosis Age [...] Unknown Disability 05/31/[address]: 968915287 Has never s moked or chewed tobacco 05/31/[address]: 206497484 Never drinks alco hol 05/31/2018 Has the [...] hypertension ICD-10: I10 ICD-9: 401.9 10/03/2018 Active [place] eye ICD-10: H10.029 ICD-9: 372.03 12/29/2019 Active [...] Headache ICD-10: R51 ICD-9: 784.0 10/03/2018 Active 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) use of non-steroidal anti-inflammatories (NSAID) ICD-10: Z79.1 ICD-9: V58.64 06/13/2018 Active Medications Medication Codes Instructions Start Date Stop Date Status Fill Instructions levothyroxine 50 mcg tablet RxNorm: 325090 1 Tablet(s) PO daily 01/15/20 20 2019 Inactive lisinopril 2.5 mg tablet RxNorm: 056359 1 Tablet(s) PO daily 01/15/20 20 2020 Inactive gabapentin 300 mg capsule RxNorm: 341917 1 Capsule(s) PO TID 01/15/20 20 2019 Inactive cetirizine 10 mg tablet RxNorm: 5878154 1 Tablet(s) PO daily 01/15/20 20 2019 Inactive Singulair 10 mg tablet RxNorm: 627917 1 Tablet(s) PO daily 01/15/20 20 2020 Inactive gentamicin 0.3 % eye drops RxNorm: 183454 1 Drop(s) ophthalmic (eye) four times a day 12/29/19 20 2019 Inactive gentamicin 0.3 % eye drops RxNorm: 540130 1 Drop(s) ophthalmic (eye) four times a day 12/29/19 20 2019 Inactive gentamicin 0.3 % eye drops RxNorm: 174922 1 Drop(s) ophthalmic (eye) four times a day 12/29/19 20 2019 Inactive hydrochlorothiazide 25 mg tablet RxNorm: 021220 1 Tablet(s) Oral every day 12/21/192019 Inactive Sudafed 12 Hour 120 mg tablet,extended release RxNorm: 9869705 TAKE (1) TABLET BY MOUTH EVERY 12 HOURS NEEDED 12/21/19 20 2019 Inactive loperamide 2 mg tablet RxNorm: 074863 1 Tablet(s) Oral as needed take one tablet after each loose stool, maximum of 8 tablets in 24 hours 12/11/19 20 2019 Inactive loperamide 2 mg tablet RxNorm: 248033 1 Tablet(s) Oral as needed take one tablet after each loose stool, maximum of 8 tablets in 24 hours 12/11/19 20 2019 Inactive atorvastatin 40 mg tablet RxNorm: 573288 1 Tablet(s) Oral every day 11/29/19 20 2020 Inactive quetiapine 100 mg tablet RxNorm: 354100 1 Tablet(s) Oral every night at bedtime 11/28/19 20 2019 Inactive sertraline 100 mg tablet RxNorm: 390518 1 Tablet(s) Oral 11/28/19 20 2019 Inactive omeprazole 20 mg capsule,delayed release RxNorm: 059983 1 Capsule(s) Oral every day 11/20/19 20 2019 Inactive amoxicillin 250 mg capsule RxNorm: 447544 1 Capsule(s) Oral three times a day 11/07/19 20 2019 Inactive multivitamin with iron-mineral tablet RxNorm: 1 Tablet(s) Oral every day 10/29/19 20 2021 Inactive cetirizine 10 mg tablet RxNorm: 8247567 1 Tablet(s) PO daily 10/20/19 20 2019 Inactive This refill negates all other refills of this medication. Please do not auto refill Singulair 10 mg tablet RxNorm: 970744 1 Tablet(s) PO daily 10/20/19 20 2019 Inactive This refill negates all other refills of this medication gabapentin 300 mg capsule RxNorm: 149975 1 Capsule(s) PO TID 10/20/19 20 2019 Inactive lisinopril 2.5 mg tablet RxNorm: 913911 1 Tablet(s) PO daily 10/20/19 20 2019 Inactive levothyroxine 50 mcg tablet RxNorm: 815800 1 Tablet(s) PO daily 10/20/19 20 2019 Inactive This refill negates all other refills of this medication fenugreek seed extract 500 mg capsule RxNorm: 1 Capsule(s) Oral three times a day 10/17/19 20 2021 Inactive hydrochlorothiazide 25 mg tablet RxNorm: 120494 1 Tablet(s) Oral every day 10/17/19 20 2019 Inactive Alcohol Prep Pads RxNorm: 466222 1 Patch TOP QAM 10/16/19 20 2020 Inactive loperamide 2 mg tablet RxNorm: 016549 1 Tablet(s) Oral as needed take one [...] 2019 Inactive hydrochlorothiazide 25 mg tablet RxNorm: 070117 1 Tablet(s) Oral every day 09/19/20 19 2019 Inactive Sudafed 12 Hour 120 mg tablet,extended release RxNorm: 0464673 1 Tablet(s) Oral every 12 hours as needed 09/11/20 19 2018 Inactive omeprazole 20 mg capsule,delayed release RxNorm: 556575 1 Capsule(s) Oral every day 09/07/20 19 2019 Inactive Sudafed 12 Hour 120 mg tablet,extended release RxNorm: 9778856 1 Tablet(s) Oral every 12 hours as needed 09/04/20 19 2018 Inactive pantoprazole 40 mg tablet,delayed release RxNorm: 695936 1 Tablet(s) Oral every day 08/24/202018 Inactive discontinue any other H2Blkr. and PPI albuterol sulfate 2.5 mg/3 mL (0.083 %) solution for nebulization RxNorm: 005073 1 Vial Inhalation every four hours as needed as needed for dyspnea 08/17/202019 Inactive 60/box. This refill negates all other refills of this medication. Please do not fill early. Please do not auto refill. Symbicort 160 mcg-4.5 mcg/actuation HFA aerosol inhaler RxNorm: 0034647 2 Puff(s) INH BID 08/17/20 19 No Stop Date Active Alcohol Prep Pads RxNorm: 300458 1 Patch TOP QAM 08/17/20 19 2019 Inactive True Metrix Glucose Test Strip RxNorm: 1 Test Strips Miscellaneous QAM 08/09/20 19 2019 Inactive 100/container Ventolin HFA 90 mcg/actuation aerosol inhaler RxNorm: 750107 2 Puff(s) INH QID 08/09/20 19 2019 Inactive Please do not fill early. Please do not auto refill. This refill negates all other refills of this medication atorvastatin 40 mg tablet RxNorm: 581812 1 Tablet(s) Oral every day 07/04/20 19 2019 Inactive levmetamfetamine 50 mg nasal inhaler RxNorm: 1 Unit(s) NASAL Q3-4H Do not use more than every 3 hours or 8 times/24hours 06/26/20 19 2021 Inactive Please do not auto refill. This refill negates all other refills of this medication diclofenac sodium 75 mg tablet,delayed release RxNorm: 815915 1 Tablet(s) PO BID 06/26/20 19 2019 Inactive This refill negates all other refills of this medication buspirone 7.5 mg tablet RxNorm: 884386 1 Tablet(s) PO BID 06/26/20 19 2020 Inactive This refill negates all other refills of this medication hydrochlorothiazide 12.5 mg tablet RxNorm: 700986 1 Tablet(s) PO QAM 06/26/20 19 2019 Inactive Ventolin HFA 90 mcg/actuation aerosol inhaler RxNorm: 475378 2 Puff(s) INH QID 06/26/20 19 2018 Inactive Please do not fill early. Please do not auto refill. This refill negates all other refills of this medication Singulair 10 mg tablet RxNorm: 806848 1 Tablet(s) PO daily 06/26/20 19 2019 Inactive This refill negates all other refills of this medication cetirizine 10 mg tablet RxNorm: 8379244 1 Tablet(s) PO daily 06/26/20 19 2019 Inactive This refill negates all other refills of this medication. Please do not auto refill levothyroxine 50 mcg tablet RxNorm: 402441 1 Tablet(s) PO daily 06/26/20 19 2019 Inactive This refill negates all other refills of this medication ranitidine 150 mg tablet RxNorm: 863793 1 Tablet(s) PO BID 06/26/20 19 2018 Inactive This refill negates all other refills of this medication Calcium 600-D3 Plus (mag-zinc) 600 mg calcium-800 unit-50 mg tablet RxNorm: 1 Tablet(s) PO daily take an additonal tablet for itching. 06/26/20 19 2018 Inactive This refill negates all other refills of this medication albuterol sulfate 2.5 mg/3 mL (0.083 %) solution for nebulization RxNorm: 711412 1 Vial INH QID 06/26/20 19 2018 Inactive 60/box. This refill negates all other refills of this medication. Please do not fill early. Please do not auto refill. lisinopril 2.5 mg tablet RxNorm: 271960 1 Tablet(s) PO daily 06/21/20 19 2019 Inactive gabapentin 300 mg capsule RxNorm: 466302 1 Capsule(s) PO TID 06/21/20 19 2019 Inactive atorvastatin 20 mg tablet RxNorm: 532786 1 Tablet(s) PO QHS 06/07/20 19 2018 Inactive This refill negates all other refills of this medication TRUEplus Lancets 30 gauge RxNorm: 1 Lancets Miscellaneous QA 05/29/20 19 2018 Inactive 100/box gabapentin 300 mg capsule RxNorm: 010384 1 Capsule(s) PO TID 05/03/20 19 2018 Inactive Flintstones Complete (iron) 18 mg iron chewable tablet RxNorm: 1 Tablet(s) PO daily 04/04/20 19 2021 Inactive This refill negates all other refills of this medication gabapentin 300 mg capsule RxNorm: 551353 1 Capsule(s) PO TID as needed 02/01/202018 Inactive True Metrix Glucose Test Strip RxNorm: 1 Test Strips Miscellaneous QA 02/01/20 19 2018 Inactive 100/container Alcohol Prep Pads RxNorm: 396762 1 Patch TOP QA 02/01/202018 Inactive TRUEplus Lancets 30 gauge RxNorm: 1 Lancets Miscellaneous QAM 02/01/20 19 2018 Inactive 100/box lisinopril 2.5 mg tablet RxNorm: 704994 1 Tablet(s) PO daily 12/28/19 19 2018 Inactive ranitidine 150 mg tablet RxNorm: 650852 1 Tablet(s) PO BID 10/21/19 19 2018 Inactive This refill negates all other refills of this medication albuterol sulfate 2.5 mg/3 mL (0.083 %) solution for nebulization RxNorm: 102409 1 Vial INH QID 10/21/19 19 2018 [...] this medication gabapentin 300 mg capsule RxNorm: 509417 1 Capsule(s) PO TID as needed 10/21/19 19 2018 Inactive atorvastatin 20 mg tablet RxNorm: 144585 1 Tablet(s) PO QHS 10/21/192018 Inactive This refill negates all other refills of this medication trazodone 50 mg tablet RxNorm: 387305 1 Tablet(s) PO QHS 10/21/192018 Inactive This refill negates all other refills of this medication Ventolin HFA 90 mcg/actuation aerosol inhaler RxNorm: 898354 2 Puff(s) INH QID 10/21/192018 Inactive Please do not fill early. Please do not auto refill. This refill negates all other refills of this medication Calcium 600-D3 Plus 600 mg calcium-800 unit-50 mg tablet RxNorm: 1 Tablet(s) PO daily take an additonal tablet for itching. 10/21/192018 Inactive This refill negates all other refills of this medication Singulair 10 mg tablet RxNorm: 912822 1 Tablet(s) PO daily 10/21/192018 Inactive This refill negates all other refills of this medication buspirone 7.5 mg tablet RxNorm: 603159 1 Tablet(s) PO BID 10/21/192018 Inactive This refill negates all other refills of this medication diclofenac sodium 75 mg tablet,delayed release RxNorm: 222537 1 Tablet(s) PO BID 10/21/192018 Inactive This refill negates all other refills of this medication hydrochlorothiazide 12.5 mg tablet RxNorm: 757598 1 Tablet(s) PO QAM 10/21/192018 Inactive metoprolol succinate ER 50 mg tablet,extended release 24 hr RxNorm: 646088 1 Tablet(s) PO daily 10/21/192018 Inactive This refill negates all other refills of this medication levothyroxine 50 mcg tablet RxNorm: 709460 1 Tablet(s) PO daily 10/21/192018 Inactive This refill negates all other refills of this medication cetirizine 10 mg tablet RxNorm: 2675706 1 Tablet(s) PO daily 10/21/192018 Inactive This refill negates all other refills of this medication. Please do not auto refill Flintstones Complete (iron) 18 mg iron chewable tablet RxNorm: 1 Tablet(s) PO daily 10/21/192018 Inactive This refill negates all other refills of this medication buspirone 7.5 mg tablet RxNorm: 274442 1 Tablet(s) PO BID 10/12/192018 Inactive cetirizine 10 mg tablet RxNorm: 6570879 1 Tablet(s) PO daily 09/28/202018 Inactive Guaiasorb DM 10 mg-100 mg/5 mL oral liquid RxNorm: 244257 10 Milliliter(s) PO As needed every 4 hr 09/24/202018 Inactive Vicks Vaporub 4.7 %-1.2 %-2.6 % topical ointment RxNorm: 8515836 1 Application TOP TID 09/24/20 18 2018 Inactive levmetamfetamine 50 mg nasal inhaler RxNorm: 1 Unit(s) NASAL Q3-4H 09/24/20 18 2017 Inactive sertraline 50 mg tablet RxNorm: 942821 1 Tablet(s) PO daily 09/09/20 18 2018 Inactive Please note dose trazodone 50 mg tablet RxNorm: 047631 1 Tablet(s) PO QHS 09/06/20 18 2018 Inactive sertraline 50 mg tablet RxNorm: 650871 1 Tablet(s) PO daily 09/06/20 18 2017 Inactive amoxicillin 500 mg tablet RxNorm: 042841 1 Tablet(s) PO Q12H 08/31/20 18 2017 Inactive albuterol sulfate 2.5 mg/3 mL (0.083 %) solution for nebulization RxNorm: 611938 1 Vial INH QID 08/10/20 18 2018 Inactive 60/box. Please do not fill early. Please do not auto refill. Prozac 10 mg capsule RxNorm: 924949 1 Capsule(s) PO daily 08/09/20 18 2017 Inactive buspirone 7.5 mg tablet RxNorm: 123319 1 Tablet(s) PO BID 08/09/20 18 2018 Inactive gabapentin 300 mg capsule RxNorm: 330421 1 Capsule(s) PO TID as needed 08/01/20 18 2018 Inactive hydrochlorothiazide 12.5 mg tablet RxNorm: 422616 1 Tablet(s) PO QAM 08/01/20 18 2018 Inactive ranitidine 150 mg tablet RxNorm: 734706 1 Tablet(s) PO BID 08/01/20 18 2018 Inactive Macrobid 100 mg capsule RxNorm: 112124 1 Capsule(s) PO Q12H 06/21/20 18 2017 Inactive Singulair 10 mg tablet RxNorm: 867254 1 Tablet(s) PO daily 06/14/20 18 2018 Inactive Ventolin HFA 90 mcg/actuation aerosol inhaler RxNorm: 1574001 2 Puff(s) INH QID 06/14/20 18 2018 Inactive Singulair 10 mg tablet RxNorm: 657635 1 Tablet(s) PO daily 06/14/20 18 2017 Inactive buspirone 7.5 mg tablet RxNorm: 725343 1 Tablet(s) PO BID 06/14/20 18 2017 Inactive Prozac 10 mg capsule RxNorm: 678734 1 Capsule(s) PO daily 06/14/20 18 2017 Inactive Neilmed Pediatric Sinus Rinse Refill packet RxNorm: 1 Unit Dose NASAL PRN 05/31/20 18 2021 Inactive diclofenac sodium 75 mg tablet,delayed release RxNorm: 007110 1 Tablet(s) PO BID 05/31/20 18 2017 Inactive lisinopril 2.5 mg tablet RxNorm: 470139 1 Tablet(s) PO daily 05/31/20 18 2017 Inactive metoprolol succinate ER 50 mg tablet,extended release 24 hr RxNorm: 825990 1 Tablet(s) PO daily 05/31/20 18 2017 Inactive levothyroxine 50 mcg tablet RxNorm: 800432 1 Tablet(s) PO daily 05/31/20 18 2017 Inactive TRUEplus Lancets 30 gauge RxNorm: 1 Lancets Miscellaneous QAM 05/31/20 18 2017 Inactive 100/box Ventolin HFA 90 mcg/actuation aerosol inhaler RxNorm: 027675 2 Puff(s) INH QID 05/31/20 18 2017 Inactive Aleve 220 mg capsule RxNorm: 5879150 1 Capsule(s) PO BID 05/31/20 18 2018 Inactive ranitidine 150 mg tablet RxNorm: 154135 1 Tablet(s) PO BID 05/31/20 18 2017 Inactive gabapentin 300 mg capsule RxNorm: 698838 1 Capsule(s) PO TID as needed 05/31/20 18 2017 Inactive atorvastatin 20 mg tablet RxNorm: 601423 1 Tablet(s) PO QHS 05/31/20 18 2017 Inactive True Metrix Glucose Test Strip RxNorm: 1 Test Strips Miscellaneous QAM 05/31/20 18 2017 Inactive 50/container Calcium 600-D3 Plus 600 mg calcium-800 unit-50 mg tablet RxNorm: 1 Tablet(s) PO daily take an additonal tablet for itching. 05/31/20 18 2017 Inactive hydrochlorothiazide 12.5 mg tablet RxNorm: 601759 1 Tablet(s) PO QAM 05/31/20 18 2017 Inactive Flintstones Complete (iron) 18 mg iron chewable tablet RxNorm: 1 Tablet(s) PO daily 05/31/20 18 2017 Inactive d-mannose oral powder RxNorm: PO 18 2021 Inactive True Metrix Glucose Meter RxNorm: miscellaneous 08/17/20 19 2018 Inactive sertraline 50 mg tablet RxNorm: 208456 1 Tablet(s) PO daily 11/28/19 20 2019 Inactive loperamide 2 mg tablet RxNorm: 708224 oral 09/29/20 19 2018 Inactive Symbicort 160 mcg-4.5 mcg/actuation HFA aerosol inhaler RxNorm: 7266962 2 Puff(s) INH BID 08/17/202018 Inactive Medication Administered No Medication Administered data Procedures Procedure Codes Date Tobacco Assessment/Screening CPT-4: TCA Fall Risk Assessment SNOMED CT: 36043439 4 CPT-4: DFRA 01/01/2020 Functional Assessment CPT-4: DFA 01/01/2020 [place] Assessment CPT-4: DSWA 11/04 Patient Health Questionnaire CPT-4: DPHQ [place] Assessment CPT-4: DSWA 10/03 Hypertension CPT-4: HTN 10/17/2019 Fall Risk Assessment SNOMED CT: 34967397 4 CPT-4: DFRA 09/19/2019 Functional Assessment CPT-4: DFA 09/19/2019 Urinalysis, dip stick CPT-4: 00637 06/21/2019 Tobacco Assessment/Screening CPT-4: TCA Patient Health Questionnaire CPT-4: DPHQ AHA/REBECCA Classification Assessment CPT-4: DAHA 04/25/2019 Controlled Substance Report CPT-4: CTRSU 04/03 Urinalysis, dip stick CPT-4: 86670 03/28/2019 Urinalysis, dip stick CPT-4: 26273 03/28/2019 [id number] CPT-4: 66972 Unknown [id number] CPT-4: 86857 Unknown Gynecology Referral SNOMED CT: 750804259 CPT-4: R14 Unknown Reason For Visit No Reason For Visit data Plan of Care Planned Activity Notes Codes Status Date Referral: Pending Gynecology Referral Information Referral Processed Referral: Pending Pulmonolog y Referral Information Referral Processed Referral: Pending Psychiatry Referral Information Referral Initiated Referral: Pending Respirator y Services Referral Information Referral Initiated Referral: Pending Ophthalmol ogy Referral Information Referral Initiated Referral: [facility] WPtel: [address] Commercial Account Manager placed a call out to the patient to notify her that it has been recommended that she be seen by 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 Patient agreed to be seen, does not have a provider of choice and no transportation issues. Commercial Account Manager faxed referral and clinical notes to [facility] in [place], [place] near the patient's home. Patient to [...] seen and prefers a provider in the [place] or [place] area. Commercial Account Manager placed a call out to everyone listed in the area and the only location that was able to accept the patient's insurance was [place] [address] [place] [address] and spoke with Maylin. Maylin asked that the patient's referral, face sheet and visit notes be faxed to . Commercial Account Manager faxed over requested documents. Patient appointment confirmation letter generated and mailed to her home address. Patient to call to schedule an appointment. Processed Referral: [facility] W[facility]el: [address] [place] [address] [place], [place] [id number] Patient notified that it has been advised that she be seen by Neurology. Patient agreed to be seen and prefers to be seen by a provider in the [place], [place] area. Patient denies any concerns with transportation, and prefers to schedule her own appointment. Commercial Account Manager placed a call out to [facility] and spoke with Neeraj P: who [...]
--- OUTSIDE RECORDS SUMMARY | 2023-12-07 02:10 | XMS_ITS | CCD ---
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 Learning Support Aide Name Role Phone Palomo KING, Anna Primary Care Provider Unav ailable Unavailable Chronic Care Management Unavaila ble Summary Purpose DataExchange Insurance Providers Payer name Policy type / Coverage type Covered libertarian ID Effective Begin Date Effective End Date SUKI MAYO [id number] Unknown Unknown Family history Mother Diagnosis Age [...] Unknown Disability 05/31/[address]: 539325257 Has never s moked or chewed tobacco 05/31/[address]: 776126908 Never drinks alco hol 05/31/2018 Has the [...] hypertension ICD-10: I10 ICD-9: 401.9 10/03/2018 Active [place] eye ICD-10: H10.029 ICD-9: 372.03 12/29/2019 Active [...] Headache ICD-10: R51 ICD-9: 784.0 10/03/2018 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 (current) use of non-steroidal anti-inflammatories (NSAID) ICD-10: Z79.1 ICD-9: V58.64 06/13/2018 Active Medications Medication Codes Instructions Start Date Stop Date Status Fill Instructions levothyroxine 50 mcg tablet RxNorm: 730616 1 Tablet(s) PO daily 01/15/20 20 2019 Inactive lisinopril 2.5 mg tablet RxNorm: 849017 1 Tablet(s) PO daily 01/15/20 20 2020 Inactive gabapentin 300 mg capsule RxNorm: 232387 1 Capsule(s) PO TID 01/15/20 20 2019 Inactive cetirizine 10 mg tablet RxNorm: 8928105 1 Tablet(s) PO daily 01/15/20 20 2019 Inactive Singulair 10 mg tablet RxNorm: 200222 1 Tablet(s) PO daily 01/15/20 20 2020 Inactive gentamicin 0.3 % eye drops RxNorm: 318737 1 Drop(s) ophthalmic (eye) four times a day 12/29/19 20 2019 Inactive gentamicin 0.3 % eye drops RxNorm: 430157 1 Drop(s) ophthalmic (eye) four times a day 12/29/19 20 2019 Inactive gentamicin 0.3 % eye drops RxNorm: 122531 1 Drop(s) ophthalmic (eye) four times a day 12/29/19 20 2019 Inactive hydrochlorothiazide 25 mg tablet RxNorm: 401216 1 Tablet(s) Oral every day 12/21/192019 Inactive Sudafed 12 Hour 120 mg tablet,extended release RxNorm: 6352345 TAKE (1) TABLET BY MOUTH EVERY 12 HOURS NEEDED 12/21/19 20 2019 Inactive loperamide 2 mg tablet RxNorm: 093140 1 Tablet(s) Oral as needed take one tablet after each loose stool, maximum of 8 tablets in 24 hours 12/11/19 20 2019 Inactive loperamide 2 mg tablet RxNorm: 369745 1 Tablet(s) Oral as needed take one tablet after each loose stool, maximum of 8 tablets in 24 hours 12/11/19 20 2019 Inactive atorvastatin 40 mg tablet RxNorm: 399384 1 Tablet(s) Oral every day 11/29/19 20 2020 Inactive quetiapine 100 mg tablet RxNorm: 551859 1 Tablet(s) Oral every night at bedtime 11/28/19 20 2019 Inactive sertraline 100 mg tablet RxNorm: 432447 1 Tablet(s) Oral 11/28/19 20 2019 Inactive omeprazole 20 mg capsule,delayed release RxNorm: 122494 1 Capsule(s) Oral every day 11/20/19 20 2019 Inactive amoxicillin 250 mg capsule RxNorm: 754636 1 Capsule(s) Oral three times a day 11/07/19 20 2019 Inactive multivitamin with iron-mineral tablet RxNorm: 1 Tablet(s) Oral every day 10/29/19 20 2021 Inactive cetirizine 10 mg tablet RxNorm: 6787731 1 Tablet(s) PO daily 10/20/19 20 2019 Inactive This refill negates all other refills of this medication. Please do not auto refill Singulair 10 mg tablet RxNorm: 842181 1 Tablet(s) PO daily 10/20/19 20 2019 Inactive This refill negates all other refills of this medication gabapentin 300 mg capsule RxNorm: 399491 1 Capsule(s) PO TID 10/20/19 20 2019 Inactive lisinopril 2.5 mg tablet RxNorm: 880252 1 Tablet(s) PO daily 10/20/19 20 2019 Inactive levothyroxine 50 mcg tablet RxNorm: 386279 1 Tablet(s) PO daily 10/20/19 20 2019 Inactive This refill negates all other refills of this medication fenugreek seed extract 500 mg capsule RxNorm: 1 Capsule(s) Oral three times a day 10/17/19 20 2021 Inactive hydrochlorothiazide 25 mg tablet RxNorm: 682842 1 Tablet(s) Oral every day 10/17/19 20 2019 Inactive Alcohol Prep Pads RxNorm: 422874 1 Patch TOP QAM 10/16/19 20 2020 Inactive loperamide 2 mg tablet RxNorm: 472063 1 Tablet(s) Oral as needed take one [...] 2019 Inactive hydrochlorothiazide 25 mg tablet RxNorm: 821500 1 Tablet(s) Oral every day 09/19/20 19 2019 Inactive Sudafed 12 Hour 120 mg tablet,extended release RxNorm: 2965513 1 Tablet(s) Oral every 12 hours as needed 09/11/20 19 2018 Inactive omeprazole 20 mg capsule,delayed release RxNorm: 118422 1 Capsule(s) Oral every day 09/07/20 19 2019 Inactive Sudafed 12 Hour 120 mg tablet,extended release RxNorm: 9133544 1 Tablet(s) Oral every 12 hours as needed 09/04/20 19 2018 Inactive pantoprazole 40 mg tablet,delayed release RxNorm: 694810 1 Tablet(s) Oral every day 08/24/202018 Inactive discontinue any other H2Blkr. and PPI albuterol sulfate 2.5 mg/3 mL (0.083 %) solution for nebulization RxNorm: 073265 1 Vial Inhalation every four hours as needed as needed for dyspnea 08/17/202019 Inactive 60/box. This refill negates all other refills of this medication. Please do not fill early. Please do not auto refill. Symbicort 160 mcg-4.5 mcg/actuation HFA aerosol inhaler RxNorm: 0896179 2 Puff(s) INH BID 08/17/20 19 No Stop Date Active Alcohol Prep Pads RxNorm: 410232 1 Patch TOP QAM 08/17/20 19 2019 Inactive True Metrix Glucose Test Strip RxNorm: 1 Test Strips Miscellaneous QAM 08/09/20 19 2019 Inactive 100/container Ventolin HFA 90 mcg/actuation aerosol inhaler RxNorm: 140413 2 Puff(s) INH QID 08/09/20 19 2019 Inactive Please do not fill early. Please do not auto refill. This refill negates all other refills of this medication atorvastatin 40 mg tablet RxNorm: 243136 1 Tablet(s) Oral every day 07/04/20 19 2019 Inactive levmetamfetamine 50 mg nasal inhaler RxNorm: 1 Unit(s) NASAL Q3-4H Do not use more than every 3 hours or 8 times/24hours 06/26/20 19 2021 Inactive Please do not auto refill. This refill negates all other refills of this medication diclofenac sodium 75 mg tablet,delayed release RxNorm: 685616 1 Tablet(s) PO BID 06/26/20 19 2019 Inactive This refill negates all other refills of this medication buspirone 7.5 mg tablet RxNorm: 080655 1 Tablet(s) PO BID 06/26/20 19 2020 Inactive This refill negates all other refills of this medication hydrochlorothiazide 12.5 mg tablet RxNorm: 828804 1 Tablet(s) PO QAM 06/26/20 19 2019 Inactive Ventolin HFA 90 mcg/actuation aerosol inhaler RxNorm: 569610 2 Puff(s) INH QID 06/26/20 19 2018 Inactive Please do not fill early. Please do not auto refill. This refill negates all other refills of this medication Singulair 10 mg tablet RxNorm: 361108 1 Tablet(s) PO daily 06/26/20 19 2019 Inactive This refill negates all other refills of this medication cetirizine 10 mg tablet RxNorm: 8634360 1 Tablet(s) PO daily 06/26/20 19 2019 Inactive This refill negates all other refills of this medication. Please do not auto refill levothyroxine 50 mcg tablet RxNorm: 148521 1 Tablet(s) PO daily 06/26/20 19 2019 Inactive This refill negates all other refills of this medication ranitidine 150 mg tablet RxNorm: 411024 1 Tablet(s) PO BID 06/26/20 19 2018 Inactive This refill negates all other refills of this medication Calcium 600-D3 Plus (mag-zinc) 600 mg calcium-800 unit-50 mg tablet RxNorm: 1 Tablet(s) PO daily take an additonal tablet for itching. 06/26/20 19 2018 Inactive This refill negates all other refills of this medication albuterol sulfate 2.5 mg/3 mL (0.083 %) solution for nebulization RxNorm: 248972 1 Vial INH QID 06/26/20 19 2018 Inactive 60/box. This refill negates all other refills of this medication. Please do not fill early. Please do not auto refill. lisinopril 2.5 mg tablet RxNorm: 112612 1 Tablet(s) PO daily 06/21/20 19 2019 Inactive gabapentin 300 mg capsule RxNorm: 817913 1 Capsule(s) PO TID 06/21/20 19 2019 Inactive atorvastatin 20 mg tablet RxNorm: 363344 1 Tablet(s) PO QHS 06/07/20 19 2018 Inactive This refill negates all other refills of this medication TRUEplus Lancets 30 gauge RxNorm: 1 Lancets Miscellaneous QA 05/29/20 19 2018 Inactive 100/box gabapentin 300 mg capsule RxNorm: 330793 1 Capsule(s) PO TID 05/03/20 19 2018 Inactive Flintstones Complete (iron) 18 mg iron chewable tablet RxNorm: 1 Tablet(s) PO daily 04/04/20 19 2021 Inactive This refill negates all other refills of this medication gabapentin 300 mg capsule RxNorm: 621521 1 Capsule(s) PO TID as needed 02/01/202018 Inactive True Metrix Glucose Test Strip RxNorm: 1 Test Strips Miscellaneous QA 02/01/20 19 2018 Inactive 100/container Alcohol Prep Pads RxNorm: 527257 1 Patch TOP QA 02/01/202018 Inactive TRUEplus Lancets 30 gauge RxNorm: 1 Lancets Miscellaneous QAM 02/01/20 19 2018 Inactive 100/box lisinopril 2.5 mg tablet RxNorm: 342924 1 Tablet(s) PO daily 12/28/19 19 2018 Inactive ranitidine 150 mg tablet RxNorm: 733182 1 Tablet(s) PO BID 10/21/19 19 2018 Inactive This refill negates all other refills of this medication albuterol sulfate 2.5 mg/3 mL (0.083 %) solution for nebulization RxNorm: 241761 1 Vial INH QID 10/21/19 19 2018 [...] this medication gabapentin 300 mg capsule RxNorm: 186037 1 Capsule(s) PO TID as needed 10/21/19 19 2018 Inactive atorvastatin 20 mg tablet RxNorm: 377181 1 Tablet(s) PO QHS 10/21/192018 Inactive This refill negates all other refills of this medication trazodone 50 mg tablet RxNorm: 353005 1 Tablet(s) PO QHS 10/21/192018 Inactive This refill negates all other refills of this medication Ventolin HFA 90 mcg/actuation aerosol inhaler RxNorm: 098597 2 Puff(s) INH QID 10/21/192018 Inactive Please do not fill early. Please do not auto refill. This refill negates all other refills of this medication Calcium 600-D3 Plus 600 mg calcium-800 unit-50 mg tablet RxNorm: 1 Tablet(s) PO daily take an additonal tablet for itching. 10/21/192018 Inactive This refill negates all other refills of this medication Singulair 10 mg tablet RxNorm: 649921 1 Tablet(s) PO daily 10/21/192018 Inactive This refill negates all other refills of this medication buspirone 7.5 mg tablet RxNorm: 248847 1 Tablet(s) PO BID 10/21/192018 Inactive This refill negates all other refills of this medication diclofenac sodium 75 mg tablet,delayed release RxNorm: 336182 1 Tablet(s) PO BID 10/21/192018 Inactive This refill negates all other refills of this medication hydrochlorothiazide 12.5 mg tablet RxNorm: 070212 1 Tablet(s) PO QAM 10/21/192018 Inactive metoprolol succinate ER 50 mg tablet,extended release 24 hr RxNorm: 613888 1 Tablet(s) PO daily 10/21/192018 Inactive This refill negates all other refills of this medication levothyroxine 50 mcg tablet RxNorm: 926907 1 Tablet(s) PO daily 10/21/192018 Inactive This refill negates all other refills of this medication cetirizine 10 mg tablet RxNorm: 4845109 1 Tablet(s) PO daily 10/21/192018 Inactive This refill negates all other refills of this medication. Please do not auto refill Flintstones Complete (iron) 18 mg iron chewable tablet RxNorm: 1 Tablet(s) PO daily 10/21/192018 Inactive This refill negates all other refills of this medication buspirone 7.5 mg tablet RxNorm: 264551 1 Tablet(s) PO BID 10/12/192018 Inactive cetirizine 10 mg tablet RxNorm: 0270562 1 Tablet(s) PO daily 09/28/202018 Inactive Guaiasorb DM 10 mg-100 mg/5 mL oral liquid RxNorm: 385659 10 Milliliter(s) PO As needed every 4 hr 09/24/202018 Inactive Vicks Vaporub 4.7 %-1.2 %-2.6 % topical ointment RxNorm: 2062313 1 Application TOP TID 09/24/20 18 2018 Inactive levmetamfetamine 50 mg nasal inhaler RxNorm: 1 Unit(s) NASAL Q3-4H 09/24/20 18 2017 Inactive sertraline 50 mg tablet RxNorm: 697411 1 Tablet(s) PO daily 09/09/20 18 2018 Inactive Please note dose trazodone 50 mg tablet RxNorm: 581271 1 Tablet(s) PO QHS 09/06/20 18 2018 Inactive sertraline 50 mg tablet RxNorm: 989210 1 Tablet(s) PO daily 09/06/20 18 2017 Inactive amoxicillin 500 mg tablet RxNorm: 086361 1 Tablet(s) PO Q12H 08/31/20 18 2017 Inactive albuterol sulfate 2.5 mg/3 mL (0.083 %) solution for nebulization RxNorm: 561169 1 Vial INH QID 08/10/20 18 2018 Inactive 60/box. Please do not fill early. Please do not auto refill. Prozac 10 mg capsule RxNorm: 196391 1 Capsule(s) PO daily 08/09/20 18 2017 Inactive buspirone 7.5 mg tablet RxNorm: 767910 1 Tablet(s) PO BID 08/09/20 18 2018 Inactive gabapentin 300 mg capsule RxNorm: 158981 1 Capsule(s) PO TID as needed 08/01/20 18 2018 Inactive hydrochlorothiazide 12.5 mg tablet RxNorm: 537676 1 Tablet(s) PO QAM 08/01/20 18 2018 Inactive ranitidine 150 mg tablet RxNorm: 846618 1 Tablet(s) PO BID 08/01/20 18 2018 Inactive Macrobid 100 mg capsule RxNorm: 204789 1 Capsule(s) PO Q12H 06/21/20 18 2017 Inactive Singulair 10 mg tablet RxNorm: 196137 1 Tablet(s) PO daily 06/14/20 18 2018 Inactive Ventolin HFA 90 mcg/actuation aerosol inhaler RxNorm: 8300816 2 Puff(s) INH QID 06/14/20 18 2018 Inactive Singulair 10 mg tablet RxNorm: 795446 1 Tablet(s) PO daily 06/14/20 18 2017 Inactive buspirone 7.5 mg tablet RxNorm: 306365 1 Tablet(s) PO BID 06/14/20 18 2017 Inactive Prozac 10 mg capsule RxNorm: 697942 1 Capsule(s) PO daily 06/14/20 18 2017 Inactive Neilmed Pediatric Sinus Rinse Refill packet RxNorm: 1 Unit Dose NASAL PRN 05/31/20 18 2021 Inactive diclofenac sodium 75 mg tablet,delayed release RxNorm: 118687 1 Tablet(s) PO BID 05/31/20 18 2017 Inactive lisinopril 2.5 mg tablet RxNorm: 179813 1 Tablet(s) PO daily 05/31/20 18 2017 Inactive metoprolol succinate ER 50 mg tablet,extended release 24 hr RxNorm: 130293 1 Tablet(s) PO daily 05/31/20 18 2017 Inactive levothyroxine 50 mcg tablet RxNorm: 124186 1 Tablet(s) PO daily 05/31/20 18 2017 Inactive TRUEplus Lancets 30 gauge RxNorm: 1 Lancets Miscellaneous QAM 05/31/20 18 2017 Inactive 100/box Ventolin HFA 90 mcg/actuation aerosol inhaler RxNorm: 856162 2 Puff(s) INH QID 05/31/20 18 2017 Inactive Aleve 220 mg capsule RxNorm: 5401546 1 Capsule(s) PO BID 05/31/20 18 2018 Inactive ranitidine 150 mg tablet RxNorm: 928033 1 Tablet(s) PO BID 05/31/20 18 2017 Inactive gabapentin 300 mg capsule RxNorm: 130747 1 Capsule(s) PO TID as needed 05/31/20 18 2017 Inactive atorvastatin 20 mg tablet RxNorm: 774574 1 Tablet(s) PO QHS 05/31/20 18 2017 Inactive True Metrix Glucose Test Strip RxNorm: 1 Test Strips Miscellaneous QAM 05/31/20 18 2017 Inactive 50/container Calcium 600-D3 Plus 600 mg calcium-800 unit-50 mg tablet RxNorm: 1 Tablet(s) PO daily take an additonal tablet for itching. 05/31/20 18 2017 Inactive hydrochlorothiazide 12.5 mg tablet RxNorm: 187936 1 Tablet(s) PO QAM 05/31/20 18 2017 Inactive Flintstones Complete (iron) 18 mg iron chewable tablet RxNorm: 1 Tablet(s) PO daily 05/31/20 18 2017 Inactive d-mannose oral powder RxNorm: PO 18 2021 Inactive True Metrix Glucose Meter RxNorm: miscellaneous 08/17/20 19 2018 Inactive sertraline 50 mg tablet RxNorm: 981295 1 Tablet(s) PO daily 11/28/19 20 2019 Inactive loperamide 2 mg tablet RxNorm: 881276 oral 09/29/20 19 2018 Inactive Symbicort 160 mcg-4.5 mcg/actuation HFA aerosol inhaler RxNorm: 5823069 2 Puff(s) INH BID 08/17/202018 Inactive Medication Administered No Medication Administered data Procedures Procedure Codes Date Tobacco Assessment/Screening CPT-4: TCA Fall Risk Assessment SNOMED CT: 70504251 4 CPT-4: DFRA 01/01/2020 Functional Assessment CPT-4: DFA 01/01/2020 [place] Assessment CPT-4: DSWA 11/04 Patient Health Questionnaire CPT-4: DPHQ [place] F[place] Assessment CPT-4: DSWA 10/03 Hypertension CPT-4: HTN 10/17/2019 Fall Risk Assessment SNOMED CT: 63655448 4 CPT-4: DFRA 09/19/2019 Functional Assessment CPT-4: DFA 09/19/2019 Urinalysis, dip stick CPT-4: 94715 06/21/2019 Tobacco Assessment/Screening CPT-4: TCA Patient Health Questionnaire CPT-4: DPHQ AHA/REBECCA Classification Assessment CPT-4: DAHA 04/25/2019 Controlled Substance Report CPT-4: CTRSU 04/03 Urinalysis, dip stick CPT-4: 50893 03/28/2019 Urinalysis, dip stick CPT-4: 57627 03/28/2019 [id number] CPT-4: 56690 Unknown [id number] CPT-4: 61962 Unknown Gynecology Referral SNOMED CT: 724007728 CPT-4: R14 Unknown Reason For Visit No [...] Referral: [facility] WPtel: [address] [facility] [address] Kennel Attendant placed a call out to the patient to notify her that it has been recommended that she be seen by 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 Patient agreed to be seen, does not have a provider of choice and no transportation issues. Kennel Attendant faxed referral and clinical notes to [facility] in [place], [place] near the patient's home. Patient to [...] seen and prefers a provider in the [place] or [place] area. Kennel Attendant placed a call out to everyone listed in the area and the only location that was able to accept the patient's insurance was [place] [address] [place] [address] and spoke with Maylin. Maylin asked that the patient's referral, face sheet and visit notes be faxed to . Kennel Attendant faxed over requested documents. Patient appointment confirmation letter generated and mailed to her home address. Patient to call to schedule an appointment. Processed Referral: [facility] WPtel: [address] [place] [address] [place], [place] [id number] Patient notified that it has been advised that she be seen by Neurology. Patient agreed to be seen and prefers to be seen by a provider in the [place], [place] area. Patient denies any concerns with transportation, and prefers to schedule her own appointment. Kennel Attendant placed a call out to [facility] and spoke with Neeraj P: who confirmed that their office is able to accept new patients and the patient's insurance. After confirming the providers fax number, teletypewriter operator faxed over the patient's referral, and most [...]
--- OUTSIDE RECORDS SUMMARY | 2023-12-07 02:10 | XMS_ITS | CCD ---
Author Name Leena Culver NP Address [address] [place] [address] [address] [place] [address] Phone Organization [facility] Phone Care Team Providers Care Engineering Secretary Name Role Phone [place] Culver NP Primary Care Provider Unav ailable Unavailable Chronic Care Management Unavaila ble Summary Purpose DataExchange Insurance Providers Payer name Policy type / Coverage type Covered alliance party ID Effective Begin Date Effective End Date SUKI MAYO [id number] Unknown Unknown Family history Mother Diagnosis Age [...] Unknown Disability 05/31/[address]: 997351109 Has never s moked or chewed tobacco 05/31/[address]: 556412437 Never drinks alco hol 05/31/2018 Has the [...] hypertension ICD-10: I10 ICD-9: 401.9 10/03/2018 Active [place] [facility] ICD-10: H10.029 ICD-9: 372.03 12/29/2019 Active [...] ICD-10: Z12.4 ICD-9: V76.2 04/25/2019 Active Other [facility] (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 ICD-10: Z79.899 ICD-9: [...] Headache ICD-10: R51 ICD-9: 784.0 10/03/2018 Active [facility] (current) use of non-steroidal anti-inflammatories (NSAID) ICD-10: Z79.1 ICD-9: V58.64 06/13/2018 Active Medications Medication Codes Instructions Start Date Stop Date Status Fill Instructions gentamicin 0.3 % eye drops RxNorm: 495732 1 Drop(s) ophthalmic (eye) four times a day 12/29/19 20 2019 Inactive gentamicin 0.3 % eye drops RxNorm: 250038 1 Drop(s) ophthalmic (eye) four times a day 12/29/19 20 2019 Inactive gentamicin 0.3 % eye drops RxNorm: 037389 1 Drop(s) ophthalmic (eye) four times a day 12/29/19 20 2019 Inactive hydrochlorothiazide 25 mg tablet RxNorm: 204089 1 Tablet(s) Oral every day 12/21/19 20 2019 Inactive Sudafed 12 Hour 120 mg tablet,extended release RxNorm: 2740702 TAKE (1) TABLET BY MOUTH EVERY 12 HOURS NEEDED 12/21/19 20 2019 Inactive loperamide 2 mg tablet RxNorm: 744899 1 Tablet(s) Oral as needed take one tablet after each loose stool, maximum of 8 tablets in 24 hours 12/11/19 20 2019 Inactive loperamide 2 mg tablet RxNorm: 104642 1 Tablet(s) Oral as needed take one tablet after each loose stool, maximum of 8 tablets in 24 hours 12/11/19 20 2019 Inactive atorvastatin 40 mg tablet RxNorm: 610379 1 Tablet(s) Oral every day 11/29/19 20 2020 Inactive quetiapine 100 mg tablet RxNorm: 094384 1 Tablet(s) Oral every night at bedtime 11/28/19 20 2019 Inactive sertraline 100 mg tablet RxNorm: 611802 1 Tablet(s) Oral 11/28/19 20 2019 Inactive omeprazole 20 mg capsule,delayed release RxNorm: 014600 1 Capsule(s) Oral every day 11/20/19 20 2019 Inactive amoxicillin 250 mg capsule RxNorm: 584042 1 Capsule(s) Oral three times a day 11/07/19 20 2019 Inactive multivitamin with iron-mineral tablet RxNorm: 1 Tablet(s) Oral every day 10/29/19 20 2021 Inactive cetirizine 10 mg tablet RxNorm: 2835465 1 Tablet(s) PO daily 10/20/19 20 2019 Inactive This refill negates all other refills of this medication. Please do not auto refill Singulair 10 mg tablet RxNorm: 306413 1 Tablet(s) PO daily 10/20/19 20 2019 Inactive This refill negates all other refills of this medication gabapentin 300 mg capsule RxNorm: 508312 1 Capsule(s) PO TID 10/20/19 20 2019 Inactive lisinopril 2.5 mg tablet RxNorm: 242371 1 Tablet(s) PO daily 10/20/19 20 2019 Inactive levothyroxine 50 mcg tablet RxNorm: 516331 1 Tablet(s) PO daily 10/20/19 20 2019 Inactive This refill negates all other refills of this medication fenugreek seed extract 500 mg capsule RxNorm: 1 Capsule(s) Oral three times a day 10/17/19 20 2021 Inactive hydrochlorothiazide 25 mg tablet RxNorm: 595822 1 Tablet(s) Oral every day 10/17/192019 Inactive Alcohol Prep Pads RxNorm: 970905 1 Patch TOP QAM 10/16/19 20 2020 Inactive loperamide 2 mg tablet RxNorm: 142288 1 Tablet(s) Oral as needed take one [...] 2019 Inactive hydrochlorothiazide 25 mg tablet RxNorm: 578014 1 Tablet(s) Oral every day 09/19/20 19 2019 Inactive Sudafed 12 Hour 120 mg tablet,extended release RxNorm: 8663003 1 Tablet(s) Oral every 12 hours as needed 09/11/20 19 2018 Inactive omeprazole 20 mg capsule,delayed release RxNorm: 205483 1 Capsule(s) Oral every day 09/07/20 19 2019 Inactive Sudafed 12 Hour 120 mg tablet,extended release RxNorm: 2299580 1 Tablet(s) Oral every 12 hours as needed 09/04/20 19 2018 Inactive pantoprazole 40 mg tablet,delayed release RxNorm: 011400 1 Tablet(s) Oral every day 08/24/20 19 2018 Inactive discontinue any other H2Blkr. and PPI albuterol sulfate 2.5 mg/3 mL (0.083 %) solution for nebulization RxNorm: 527720 1 Vial Inhalation every four hours as needed as needed for dyspnea 08/17/20 19 2019 Inactive 60/box. This refill negates all other refills of this medication. Please do not fill early. Please do not auto refill. Symbicort 160 mcg-4.5 mcg/actuation HFA aerosol inhaler RxNorm: 0350559 2 Puff(s) INH BID 08/17/20 19 No Stop Date Active Alcohol Prep Pads RxNorm: 603620 1 Patch TOP QAM 08/17/20 19 2019 Inactive True Metrix Glucose Test Strip RxNorm: 1 Test Strips Miscellaneous QAM 08/09/20 19 2019 Inactive 100/container Ventolin HFA 90 mcg/actuation aerosol inhaler RxNorm: 111193 2 Puff(s) INH QID 08/09/20 19 2019 Inactive Please do not fill early. Please do not auto refill. This refill negates all other refills of this medication atorvastatin 40 mg tablet RxNorm: 500558 1 Tablet(s) Oral every day 07/04/20 19 2019 Inactive levmetamfetamine 50 mg nasal inhaler RxNorm: 1 Unit(s) NASAL Q3-4H Do not use more than every 3 hours or 8 times/24hours 06/26/20 19 2021 Inactive Please do not auto refill. This refill negates all other refills of this medication diclofenac sodium 75 mg tablet,delayed release RxNorm: 732354 1 Tablet(s) PO BID 06/26/20 19 2019 Inactive This refill negates all other refills of this medication buspirone 7.5 mg tablet RxNorm: 219118 1 Tablet(s) PO BID 06/26/20 19 2020 Inactive This refill negates all other refills of this medication hydrochlorothiazide 12.5 mg tablet RxNorm: 339368 1 Tablet(s) PO QAM 06/26/20 19 2019 Inactive Ventolin HFA 90 mcg/actuation aerosol inhaler RxNorm: 516227 2 Puff(s) INH QID 06/26/20 19 2018 Inactive Please do not fill early. Please do not auto refill. This refill negates all other refills of this medication Singulair 10 mg tablet RxNorm: 854608 1 Tablet(s) PO daily 06/26/20 19 2019 Inactive This refill negates all other refills of this medication cetirizine 10 mg tablet RxNorm: 3119673 1 Tablet(s) PO daily 06/26/20 19 2019 Inactive This refill negates all other refills of this medication. Please do not auto refill levothyroxine 50 mcg tablet RxNorm: 029055 1 Tablet(s) PO daily 06/26/20 19 2019 Inactive This refill negates all other refills of this medication ranitidine 150 mg tablet RxNorm: 411543 1 Tablet(s) PO BID 06/26/20 19 2018 Inactive This refill negates all other refills of this medication Calcium 600-D3 Plus (mag-zinc) 600 mg calcium-800 unit-50 mg tablet RxNorm: 1 Tablet(s) PO daily take an additonal tablet for itching. 06/26/20 19 2018 Inactive This refill negates all other refills of this medication albuterol sulfate 2.5 mg/3 mL (0.083 %) solution for nebulization RxNorm: 004281 1 Vial INH QID 06/26/20 19 2018 Inactive 60/box. This refill negates all other refills of this medication. Please do not fill early. Please do not auto refill. lisinopril 2.5 mg tablet RxNorm: 370658 1 Tablet(s) PO daily 06/21/20 19 2019 Inactive gabapentin 300 mg capsule RxNorm: 669447 1 Capsule(s) PO TID 06/21/20 19 2019 Inactive atorvastatin 20 mg tablet RxNorm: 184540 1 Tablet(s) PO QHS 06/07/20 19 2018 Inactive This refill negates all other refills of this medication TRUEplus Lancets 30 gauge RxNorm: 1 Lancets Miscellaneous QAM 05/29/20 19 2018 Inactive 100/box gabapentin 300 mg capsule RxNorm: 897113 1 Capsule(s) PO TID 05/03/20 19 2018 Inactive Flintstones Complete (iron) 18 mg iron chewable tablet RxNorm: 1 Tablet(s) PO daily 04/04/20 19 2021 Inactive This refill negates all other refills of this medication gabapentin 300 mg capsule RxNorm: 370740 1 Capsule(s) PO TID as needed 02/01/20 19 2018 Inactive True Metrix Glucose Test Strip RxNorm: 1 Test Strips Miscellaneous QAM 02/01/20 19 2018 Inactive 100/container Alcohol Prep Pads RxNorm: 903776 1 Patch TOP QAM 02/01/20 19 2018 Inactive TRUEplus Lancets 30 gauge RxNorm: 1 Lancets Miscellaneous QAM 02/01/20 19 2018 Inactive 100/box lisinopril 2.5 mg tablet RxNorm: 361685 1 Tablet(s) PO daily 12/28/192018 Inactive ranitidine 150 mg tablet RxNorm: 682053 1 Tablet(s) PO BID 10/21/192018 Inactive This refill negates all other refills of this medication albuterol sulfate 2.5 mg/3 mL (0.083 %) solution for nebulization RxNorm: 025903 1 Vial INH QID 10/21/19 19 2018 [...] this medication gabapentin 300 mg capsule RxNorm: 576260 1 Capsule(s) PO TID as needed 10/21/19 19 2018 Inactive atorvastatin 20 mg tablet RxNorm: 796116 1 Tablet(s) PO QHS 10/21/192018 Inactive This refill negates all other refills of this medication trazodone 50 mg tablet RxNorm: 271730 1 Tablet(s) PO QHS 10/21/192018 Inactive This refill negates all other refills of this medication Ventolin HFA 90 mcg/actuation aerosol inhaler RxNorm: 167036 2 Puff(s) INH QID 10/21/192018 Inactive Please do not fill early. Please do not auto refill. This refill negates all other refills of this medication Calcium 600-D3 Plus 600 mg calcium-800 unit-50 mg tablet RxNorm: 1 Tablet(s) PO daily take an additonal tablet for itching. 10/21/192018 Inactive This refill negates all other refills of this medication Singulair 10 mg tablet RxNorm: 482757 1 Tablet(s) PO daily 10/21/192018 Inactive This refill negates all other refills of this medication buspirone 7.5 mg tablet RxNorm: 999569 1 Tablet(s) PO BID 10/21/192018 Inactive This refill negates all other refills of this medication diclofenac sodium 75 mg tablet,delayed release RxNorm: 752256 1 Tablet(s) PO BID 10/21/192018 Inactive This refill negates all other refills of this medication hydrochlorothiazide 12.5 mg tablet RxNorm: 322045 1 Tablet(s) PO QAM 10/21/192018 Inactive metoprolol succinate ER 50 mg tablet,extended release 24 hr RxNorm: 111891 1 Tablet(s) PO daily 10/21/19 19 2018 Inactive This refill negates all other refills of this medication levothyroxine 50 mcg tablet RxNorm: 998605 1 Tablet(s) PO daily 10/21/19 19 2018 Inactive This refill negates all other refills of this medication cetirizine 10 mg tablet RxNorm: 1344449 1 Tablet(s) PO daily 10/21/19 19 2018 Inactive This refill negates all other refills of this medication. Please do not auto refill Flintstones Complete (iron) 18 mg iron chewable tablet RxNorm: 1 Tablet(s) PO daily 10/21/19 19 2018 Inactive This refill negates all other refills of this medication buspirone 7.5 mg tablet RxNorm: 079052 1 Tablet(s) PO BID 10/12/19 19 2018 Inactive cetirizine 10 mg tablet RxNorm: 4509771 1 Tablet(s) PO daily 09/28/20 18 2018 Inactive Guaiasorb DM 10 mg-100 mg/5 mL oral liquid RxNorm: 009192 10 Milliliter(s) PO As needed every 4 hr 09/24/20 18 2018 Inactive Vicks Vaporub 4.7 %-1.2 %-2.6 % topical ointment RxNorm: 8973644 1 Application TOP TID 09/24/20 18 2018 Inactive levmetamfetamine 50 mg nasal inhaler RxNorm: 1 Unit(s) NASAL Q3-4H 09/24/20 18 2017 Inactive sertraline 50 mg tablet RxNorm: 903342 1 Tablet(s) PO daily 09/09/20 18 2018 Inactive Please note dose trazodone 50 mg tablet RxNorm: 012814 1 Tablet(s) PO QHS 09/06/20 18 2018 Inactive sertraline 50 mg tablet RxNorm: 850017 1 Tablet(s) PO daily 09/06/20 18 2017 Inactive amoxicillin 500 mg tablet RxNorm: 920657 1 Tablet(s) PO Q12H 08/31/20 18 2017 Inactive albuterol sulfate 2.5 mg/3 mL (0.083 %) solution for nebulization RxNorm: 017822 1 Vial INH QID 08/10/20 18 2018 Inactive 60/box. Please do not fill early. Please do not auto refill. Prozac 10 mg capsule RxNorm: 704822 1 Capsule(s) PO daily 08/09/20 18 2017 Inactive buspirone 7.5 mg tablet RxNorm: 149257 1 Tablet(s) PO BID 08/09/20 18 2018 Inactive gabapentin 300 mg capsule RxNorm: 091661 1 Capsule(s) PO TID as needed 08/01/20 18 2018 Inactive hydrochlorothiazide 12.5 mg tablet RxNorm: 925458 1 Tablet(s) PO QAM 08/01/20 18 2018 Inactive ranitidine 150 mg tablet RxNorm: 418513 1 Tablet(s) PO BID 08/01/20 18 2018 Inactive Macrobid 100 mg capsule RxNorm: 457961 1 Capsule(s) PO Q12H 06/21/20 18 2017 Inactive Singulair 10 mg tablet RxNorm: 455702 1 Tablet(s) PO daily 06/14/20 18 2018 Inactive Ventolin HFA 90 mcg/actuation aerosol inhaler RxNorm: 5911255 2 Puff(s) INH QID 06/14/20 18 2018 Inactive Singulair 10 mg tablet RxNorm: 296191 1 Tablet(s) PO daily 06/14/20 18 2017 Inactive buspirone 7.5 mg tablet RxNorm: 264242 1 Tablet(s) PO BID 06/14/20 18 2017 Inactive Prozac 10 mg capsule RxNorm: 640041 1 Capsule(s) PO daily 06/14/20 18 2017 Inactive Neilmed Pediatric Sinus Rinse Refill packet RxNorm: 1 Unit Dose NASAL PRN 05/31/20 18 2021 Inactive diclofenac sodium 75 mg tablet,delayed release RxNorm: 971878 1 Tablet(s) PO BID 05/31/20 18 2017 Inactive lisinopril 2.5 mg tablet RxNorm: 375480 1 Tablet(s) PO daily 05/31/20 18 2017 Inactive metoprolol succinate ER 50 mg tablet,extended release 24 hr RxNorm: 146052 1 Tablet(s) PO daily 05/31/20 18 2017 Inactive levothyroxine 50 mcg tablet RxNorm: 890451 1 Tablet(s) PO daily 05/31/20 18 2017 Inactive TRUEplus Lancets 30 gauge RxNorm: 1 Lancets Miscellaneous QAM 05/31/20 18 2017 Inactive 100/box Ventolin HFA 90 mcg/actuation aerosol inhaler RxNorm: 120839 2 Puff(s) INH QID 05/31/20 18 2017 Inactive Aleve 220 mg capsule RxNorm: 9734908 1 Capsule(s) PO BID 05/31/20 18 2018 Inactive ranitidine 150 mg tablet RxNorm: 122983 1 Tablet(s) PO BID 05/31/20 18 2017 Inactive gabapentin 300 mg capsule RxNorm: 708118 1 Capsule(s) PO TID as needed 05/31/20 18 2017 Inactive atorvastatin 20 mg tablet RxNorm: 427009 1 Tablet(s) PO QHS 05/31/20 18 2017 Inactive True Metrix Glucose Test Strip RxNorm: 1 Test Strips [facility] 05/31/20 18 2017 Inactive 50/container Calcium 600-D3 Plus 600 mg calcium-800 unit-50 mg tablet RxNorm: 1 Tablet(s) PO daily take an additonal tablet for itching. 05/31/20 18 2017 Inactive hydrochlorothiazide 12.5 mg tablet RxNorm: 084901 1 Tablet(s) PO QAM 05/31/20 18 2017 Inactive Flintstones Complete (iron) 18 mg iron chewable tablet RxNorm: 1 Tablet(s) PO daily 05/31/20 18 2017 Inactive d-mannose oral powder RxNorm: PO 18 2021 Inactive True Metrix Glucose Meter RxNorm: miscellaneous 08/17/20 19 2018 Inactive sertraline 50 mg tablet RxNorm: 603321 1 Tablet(s) PO daily 11/28/19 20 2019 Inactive loperamide 2 mg tablet RxNorm: 117167 oral 09/29/20 19 2018 Inactive Symbicort 160 mcg-4.5 mcg/actuation HFA aerosol inhaler RxNorm: 4007888 2 Puff(s) INH BID 08/17/20 19 2018 Inactive Medication Administered No Medication Administered data Procedures Procedure Codes Date Tobacco Assessment/Screening CPT-4: TCA Fall Risk Assessment SNOMED CT: 25715481 4 CPT-4: DFRA 01/01/2020 Functional Assessment CPT-4: DFA 01/01/2020 Tobacco Assessment/Screening Tobacco Use/Never used tobacco CPT-4: TCAUnknown 01/01/2020 Fall Risk Assessment Two or more falls in the past year?/No, Has there been a fall with injury in the last year?/No, Plan:/Monitor gait and balance PRN, no current action needed SNOMED CT: 764103014 CPT-4: DFRAUnknown 01/01/2020 Functional Assessment ADLs - Patient needs direct [...] to perform the following safely:/transportation CPT-4: DFAUnknown 01/01/2020 [place] Assessment CPT-4: DSWA 11/04 Patient Health Questionnaire CPT-4: DPHQ [place] Assessment CPT-4: DSWA 10/03 Hypertension CPT-4: HTN 10/17/2019 Fall Risk Assessment SNOMED CT: 15474649 4 CPT-4: DFRA 09/19/2019 Functional Assessment CPT-4: DFA 09/19/2019 Urinalysis, dip stick CPT-4: 25411 06/21/2019 Tobacco Assessment/Screening CPT-4: TCA Patient Health Questionnaire CPT-4: DPHQ AHA/REBECCA Classification Assessment CPT-4: DAHA 04/25/2019 Controlled Substance Report CPT-4: CTRSU 04/03 Urinalysis, dip stick CPT-4: 81934 03/28/2019 Urinalysis, dip stick CPT-4: 16715 03/28/2019 [id number]-Jkssxfzkacoblaw CPT-4: 57327 Unknown [id number] CPT-4: 67406 Unknown Gynecology Referral SNOMED CT: 260489069 CPT-4: R14 Unknown Vital Signs Date Vital 01/01/2020 Random Blood Sugar: 171/NaN Reason For Visit Reason For Visit Effective Dates Notes hypertension 01/01/2020 diabetes mellitus 01/01/2020 Interim health update 01/01/2020 Encounters Encounter Performer Location Location Address Codes Magdi e ([id number]) (EST PT) EXPANDED PROBLEM FOCUSED TELEHEALTH VISIT Diagnosis: Type 2 diabetes mellitus with peripheral neuropathy[ICD10: E11.42] Diagnosis: Essential (primary) hypertension[ICD1 0: I10] Diagnosis: [place] [facility][ICD10: H10.029] Diagnosis: Syncope and collapse[ICD10: R55] Diagnosis: Encounter for screening for tobacco use[ICD10: Z01.89] [place] Culver [place] [facility] [id number] [place] [address] CPT-4: 36238 01/01/2020 Plan of Care Planned Activity Notes Codes Status Date Visit Plan: patient with I phone able to participate in visual and audio telehealth visit H10.029-372.03 [place] [facility] ophthalmic ointment received today advised to [...] A1C 6.0 07/04/2019 Hgb A1C 5.6 10/17/2019 [place] 10-instructed on good daily foot care Note callous [...] anxiety and depressed mood routine follow up [facility] [place] Z68.43-V85.43 Adult BMI 50.0-59.9 kg/sq m Fence Builder to visit to discuss portion control Advised to avoid soda and sweet tea-discuss Ice, carbonated drink as a substitute 01/01/2020 Patient Education: Patient Medication Summary Completed 01/01/2020 Patient Education: Diabetes Complete d 01/01/2020 Patient Education: Hypertension Completed 01/01/2020 Appointment: [place] Culver WPtel: [phone] [id number] 11/28/2019 Appointment: nAna Culver WPtel: [address] [place], [place] [id number] E452 10/17/2019 Appointment: Palomo [place] WPtel: [address] [place] [address] E452 09/19/2019 Appointment: Sudha Hernadez WPtel: [address] [place] [address] [id number] E452 07/04/2019 Appointment: Sudha Hernadez WPtel: [address] [place] [address] [id number] [id number] 06/21/2019 Appointment: Charlene Oropeza WPtel: [address] [place] [address] [id number] 05/24/2019 Appointment: Mallory Delgado E452 04/27/2019 Appointment: Charlene Oropeza WPtel: [address] [place] [address] [id number] E452 04/25/2019 Appointment: Rasta Palafox WPtel: [address] [place] [address] [id number] E452 03/28/2019 Appointment: Rasta Palafox WPtel: [address] [place] [address] [id number] E452 02/14/2019 Appointment: Rasta Palafox WPtel: [address] [place] [address] [id number] E452 01/31/2019 Appointment: Rasta Palafox WPtel: [address] [place] [address] [id number] 12/27/2018 Referral: Pending Gynecology Referral Information Referral Processed Referral: Pending Pulmonolog y Referral Information Referral Processed Referral: Pending Psychiatry Referral Information Referral Initiated Referral: Pending Respirator y Services Referral Information Referral Initiated Referral: Pending Ophthalmology Referral Information Referral Initiated Referral: [facility] [place] [facility] WPtel: [address] [facility] [facility] [address] [id number] [employer] placed a call out to the patient to notify her that it has been recommended that she be seen by 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 Patient agreed to be seen, does not have a provider of choice and no transportation issues. [employer] Maker faxed referral and clinical notes to [facility] in [place], [place] near the patient's home. Patient to [...] seen and prefers a provider in the [place] or [place] area. [employer] placed a call out to everyone listed in the area and the only location that was able to accept the patient's insurance was [address] [address] and spoke with Maylin. Maylin asked that the patient's referral, face sheet and visit notes be faxed to . [employer] faxed over requested documents. Patient appointment confirmation letter generated and mailed to her home address. Patient to call to schedule an appointment. Processed Referral: [facility] WPtel: [address] [facility] [address] [place], [place] [id number] Patient notified that it has been advised that she be seen by Neurology. Patient agreed to be seen and prefers to be seen by a provider in the [place], [place] area. Patient denies any concerns with transportation, and prefers to schedule her own appointment. [employer] placed a call out to [facility] and spoke with Neeraj Mcfarland: who confirmed that their office is able to accept new patients and the patient's insurance. After confirming the providers fax number, television writer faxed over the patient's referral, and [...] in visual and audio telehealth visit H10.029-372.03 [place] [facility] ophthalmic ointment received today advised to [...] A1C 6.0; 07/04/2019 Hgb A1C 5.6 10/17/2019 [place] Fany 7/10-instructed on good daily foot care Note callous formation to bilateral heels-instruct on application of lotion to feet routine follow up with Dr. Gonzales, podiatry-diabetic shoe paperwork received, will mail when signed by MD routine podiatry ophthalmology referral initiated 01/01/2020 FRA complete denies fall 01/01/2020 Functional Assessment complete G47.33-327.23 Obstructive sleep apnea (adult) (pediatric); J45.149-493.90 Asthma Recent ED visit for difficulty breathing-records requested continue inhalers and nebulizer wears cpap every night, believes that is helpful 10/22/2019 Dr. Garcia, pulmonology for chronic sleep apnea and asthma F43.23-309.28 Adjustment disorder with mixed anxiety and depressed mood routine follow up [facility] [place] Z68.43-V85.43 Adult BMI 50.0-59.9 kg/sq m Fence Builder to visit to discuss portion control Advised to avoid soda and sweet tea-discuss Ice, carbonated drink as a substitute 01/01/2020 Medical Equipment No Medical Equipment data Advance Directives No Advance Directive data
--- OUTSIDE RECORDS SUMMARY | 2023-12-07 02:10 | XMS_ITS | CCD ---
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 Undercutter Name Role Phone Palomo KING, Anna Primary Care Provider Unav ailable Unavailable Chronic Care Management Unavaila ble Summary Purpose DataExchange Insurance Providers Payer name Policy type / Coverage type Covered democrat ID Effective Begin Date Effective End Date SUKI MAYO [id number] Unknown Unknown Family history Mother Diagnosis Age [...] Unknown Disability 05/31/[address]: 460355394 Has never s moked or chewed tobacco 05/31/[address]: 148218348 Never drinks alco hol 05/31/2018 Has the [...] hypertension ICD-10: I10 ICD-9: 401.9 10/03/2018 Active [place] eye ICD-10: H10.029 ICD-9: 372.03 12/29/2019 Active [...] Headache ICD-10: R51 ICD-9: 784.0 10/03/2018 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 non-steroidal anti-inflammatories (NSAID) ICD-10: Z79.1 ICD-9: V58.64 06/13/2018 Active Medications Medication Codes Instructions Start Date Stop Date Status Fill Instructions levothyroxine 50 mcg tablet RxNorm: 576635 1 Tablet(s) PO daily 01/15/20 20 2019 Inactive lisinopril 2.5 mg tablet RxNorm: 239178 1 Tablet(s) PO daily 01/15/20 20 2020 Inactive gabapentin 300 mg capsule RxNorm: 081565 1 Capsule(s) PO TID 01/15/20 20 2019 Inactive cetirizine 10 mg tablet RxNorm: 0194597 1 Tablet(s) PO daily 01/15/20 20 2019 Inactive Singulair 10 mg tablet RxNorm: 234416 1 Tablet(s) PO daily 01/15/20 20 2020 Inactive gentamicin 0.3 % eye drops RxNorm: 516419 1 Drop(s) ophthalmic (eye) four times a day 12/29/19 20 2019 Inactive gentamicin 0.3 % eye drops RxNorm: 781467 1 Drop(s) ophthalmic (eye) four times a day 12/29/19 20 2019 Inactive gentamicin 0.3 % eye drops RxNorm: 194079 1 Drop(s) ophthalmic (eye) four times a day 12/29/19 20 2019 Inactive hydrochlorothiazide 25 mg tablet RxNorm: 854233 1 Tablet(s) Oral every day 12/21/192019 Inactive Sudafed 12 Hour 120 mg tablet,extended release RxNorm: 7155287 TAKE (1) TABLET BY MOUTH EVERY 12 HOURS NEEDED 12/21/19 20 2019 Inactive loperamide 2 mg tablet RxNorm: 826103 1 Tablet(s) Oral as needed take one tablet after each loose stool, maximum of 8 tablets in 24 hours 12/11/19 20 2019 Inactive loperamide 2 mg tablet RxNorm: 962657 1 Tablet(s) Oral as needed take one tablet after each loose stool, maximum of 8 tablets in 24 hours 12/11/19 20 2019 Inactive atorvastatin 40 mg tablet RxNorm: 514368 1 Tablet(s) Oral every day 11/29/19 20 2020 Inactive quetiapine 100 mg tablet RxNorm: 800810 1 Tablet(s) Oral every night at bedtime 11/28/19 20 2019 Inactive sertraline 100 mg tablet RxNorm: 710201 1 Tablet(s) Oral 11/28/19 20 2019 Inactive omeprazole 20 mg capsule,delayed release RxNorm: 493054 1 Capsule(s) Oral every day 11/20/19 20 2019 Inactive amoxicillin 250 mg capsule RxNorm: 241643 1 Capsule(s) Oral three times a day 11/07/19 20 2019 Inactive multivitamin with iron-mineral tablet RxNorm: 1 Tablet(s) Oral every day 10/29/19 20 2021 Inactive cetirizine 10 mg tablet RxNorm: 3222476 1 Tablet(s) PO daily 10/20/19 20 2019 Inactive This refill negates all other refills of this medication. Please do not auto refill Singulair 10 mg tablet RxNorm: 093404 1 Tablet(s) PO daily 10/20/19 20 2019 Inactive This refill negates all other refills of this medication gabapentin 300 mg capsule RxNorm: 314117 1 Capsule(s) PO TID 10/20/19 20 2019 Inactive lisinopril 2.5 mg tablet RxNorm: 903200 1 Tablet(s) PO daily 10/20/19 20 2019 Inactive levothyroxine 50 mcg tablet RxNorm: 395064 1 Tablet(s) PO daily 10/20/19 20 2019 Inactive This refill negates all other refills of this medication fenugreek seed extract 500 mg capsule RxNorm: 1 Capsule(s) Oral three times a day 10/17/19 20 2021 Inactive hydrochlorothiazide 25 mg tablet RxNorm: 200386 1 Tablet(s) Oral every day 10/17/19 20 2019 Inactive Alcohol Prep Pads RxNorm: 990109 1 Patch TOP QAM 10/16/19 20 2020 Inactive loperamide 2 mg tablet RxNorm: 125595 1 Tablet(s) Oral as needed take one [...] 2019 Inactive hydrochlorothiazide 25 mg tablet RxNorm: 738207 1 Tablet(s) Oral every day 09/19/20 19 2019 Inactive Sudafed 12 Hour 120 mg tablet,extended release RxNorm: 3736953 1 Tablet(s) Oral every 12 hours as needed 09/11/20 19 2018 Inactive omeprazole 20 mg capsule,delayed release RxNorm: 517089 1 Capsule(s) Oral every day 09/07/20 19 2019 Inactive Sudafed 12 Hour 120 mg tablet,extended release RxNorm: 5600028 1 Tablet(s) Oral every 12 hours as needed 09/04/20 19 2018 Inactive pantoprazole 40 mg tablet,delayed release RxNorm: 353751 1 Tablet(s) Oral every day 08/24/202018 Inactive discontinue any other H2Blkr. and PPI albuterol sulfate 2.5 mg/3 mL (0.083 %) solution for nebulization RxNorm: 189207 1 Vial Inhalation every four hours as needed as needed for dyspnea 08/17/202019 Inactive 60/box. This refill negates all other refills of this medication. Please do not fill early. Please do not auto refill. Symbicort 160 mcg-4.5 mcg/actuation HFA aerosol inhaler RxNorm: 1862013 2 Puff(s) INH BID 08/17/20 19 No Stop Date Active Alcohol Prep Pads RxNorm: 997822 1 Patch TOP QAM 08/17/20 19 2019 Inactive True Metrix Glucose Test Strip RxNorm: 1 Test Strips Miscellaneous QAM 08/09/20 19 2019 Inactive 100/container Ventolin HFA 90 mcg/actuation aerosol inhaler RxNorm: 208370 2 Puff(s) INH QID 08/09/20 19 2019 Inactive Please do not fill early. Please do not auto refill. This refill negates all other refills of this medication atorvastatin 40 mg tablet RxNorm: 343762 1 Tablet(s) Oral every day 07/04/20 19 2019 Inactive levmetamfetamine 50 mg nasal inhaler RxNorm: 1 Unit(s) NASAL Q3-4H Do not use more than every 3 hours or 8 times/24hours 06/26/20 19 2021 Inactive Please do not auto refill. This refill negates all other refills of this medication diclofenac sodium 75 mg tablet,delayed release RxNorm: 591301 1 Tablet(s) PO BID 06/26/20 19 2019 Inactive This refill negates all other refills of this medication buspirone 7.5 mg tablet RxNorm: 785790 1 Tablet(s) PO BID 06/26/20 19 2020 Inactive This refill negates all other refills of this medication hydrochlorothiazide 12.5 mg tablet RxNorm: 389518 1 Tablet(s) PO QAM 06/26/20 19 2019 Inactive Ventolin HFA 90 mcg/actuation aerosol inhaler RxNorm: 933167 2 Puff(s) INH QID 06/26/20 19 2018 Inactive Please do not fill early. Please do not auto refill. This refill negates all other refills of this medication Singulair 10 mg tablet RxNorm: 493901 1 Tablet(s) PO daily 06/26/20 19 2019 Inactive This refill negates all other refills of this medication cetirizine 10 mg tablet RxNorm: 1367297 1 Tablet(s) PO daily 06/26/20 19 2019 Inactive This refill negates all other refills of this medication. Please do not auto refill levothyroxine 50 mcg tablet RxNorm: 624552 1 Tablet(s) PO daily 06/26/20 19 2019 Inactive This refill negates all other refills of this medication ranitidine 150 mg tablet RxNorm: 318571 1 Tablet(s) PO BID 06/26/20 19 2018 Inactive This refill negates all other refills of this medication Calcium 600-D3 Plus (mag-zinc) 600 mg calcium-800 unit-50 mg tablet RxNorm: 1 Tablet(s) PO daily take an additonal tablet for itching. 06/26/20 19 2018 Inactive This refill negates all other refills of this medication albuterol sulfate 2.5 mg/3 mL (0.083 %) solution for nebulization RxNorm: 363831 1 Vial INH QID 06/26/20 19 2018 Inactive 60/box. This refill negates all other refills of this medication. Please do not fill early. Please do not auto refill. lisinopril 2.5 mg tablet RxNorm: 020324 1 Tablet(s) PO daily 06/21/20 19 2019 Inactive gabapentin 300 mg capsule RxNorm: 574477 1 Capsule(s) PO TID 06/21/20 19 2019 Inactive atorvastatin 20 mg tablet RxNorm: 835416 1 Tablet(s) PO QHS 06/07/20 19 2018 Inactive This refill negates all other refills of this medication TRUEplus Lancets 30 gauge RxNorm: 1 Lancets Miscellaneous QA 05/29/20 19 2018 Inactive 100/box gabapentin 300 mg capsule RxNorm: 296992 1 Capsule(s) PO TID 05/03/20 19 2018 Inactive Flintstones Complete (iron) 18 mg iron chewable tablet RxNorm: 1 Tablet(s) PO daily 04/04/20 19 2021 Inactive This refill negates all other refills of this medication gabapentin 300 mg capsule RxNorm: 595047 1 Capsule(s) PO TID as needed 02/01/202018 Inactive True Metrix Glucose Test Strip RxNorm: 1 Test Strips Miscellaneous QA 02/01/20 19 2018 Inactive 100/container Alcohol Prep Pads RxNorm: 814425 1 Patch TOP QA 02/01/202018 Inactive TRUEplus Lancets 30 gauge RxNorm: 1 Lancets Miscellaneous QAM 02/01/20 19 2018 Inactive 100/box lisinopril 2.5 mg tablet RxNorm: 462946 1 Tablet(s) PO daily 12/28/19 19 2018 Inactive ranitidine 150 mg tablet RxNorm: 694337 1 Tablet(s) PO BID 10/21/19 19 2018 Inactive This refill negates all other refills of this medication albuterol sulfate 2.5 mg/3 mL (0.083 %) solution for nebulization RxNorm: 343234 1 Vial INH QID 10/21/19 19 2018 [...] this medication gabapentin 300 mg capsule RxNorm: 009373 1 Capsule(s) PO TID as needed 10/21/19 19 2018 Inactive atorvastatin 20 mg tablet RxNorm: 940466 1 Tablet(s) PO QHS 10/21/192018 Inactive This refill negates all other refills of this medication trazodone 50 mg tablet RxNorm: 038581 1 Tablet(s) PO QHS 10/21/192018 Inactive This refill negates all other refills of this medication Ventolin HFA 90 mcg/actuation aerosol inhaler RxNorm: 617476 2 Puff(s) INH QID 10/21/192018 Inactive Please do not fill early. Please do not auto refill. This refill negates all other refills of this medication Calcium 600-D3 Plus 600 mg calcium-800 unit-50 mg tablet RxNorm: 1 Tablet(s) PO daily take an additonal tablet for itching. 10/21/192018 Inactive This refill negates all other refills of this medication Singulair 10 mg tablet RxNorm: 910045 1 Tablet(s) PO daily 10/21/192018 Inactive This refill negates all other refills of this medication buspirone 7.5 mg tablet RxNorm: 134547 1 Tablet(s) PO BID 10/21/192018 Inactive This refill negates all other refills of this medication diclofenac sodium 75 mg tablet,delayed release RxNorm: 621573 1 Tablet(s) PO BID 10/21/192018 Inactive This refill negates all other refills of this medication hydrochlorothiazide 12.5 mg tablet RxNorm: 010527 1 Tablet(s) PO QAM 10/21/192018 Inactive metoprolol succinate ER 50 mg tablet,extended release 24 hr RxNorm: 995313 1 Tablet(s) PO daily 10/21/192018 Inactive This refill negates all other refills of this medication levothyroxine 50 mcg tablet RxNorm: 115351 1 Tablet(s) PO daily 10/21/192018 Inactive This refill negates all other refills of this medication cetirizine 10 mg tablet RxNorm: 9775156 1 Tablet(s) PO daily 10/21/192018 Inactive This refill negates all other refills of this medication. Please do not auto refill Flintstones Complete (iron) 18 mg iron chewable tablet RxNorm: 1 Tablet(s) PO daily 10/21/192018 Inactive This refill negates all other refills of this medication buspirone 7.5 mg tablet RxNorm: 554642 1 Tablet(s) PO BID 10/12/192018 Inactive cetirizine 10 mg tablet RxNorm: 6083230 1 Tablet(s) PO daily 09/28/202018 Inactive Guaiasorb DM 10 mg-100 mg/5 mL oral liquid RxNorm: 192319 10 Milliliter(s) PO As needed every 4 hr 09/24/202018 Inactive Vicks Vaporub 4.7 %-1.2 %-2.6 % topical ointment RxNorm: 8920553 1 Application TOP TID 09/24/20 18 2018 Inactive levmetamfetamine 50 mg nasal inhaler RxNorm: 1 Unit(s) NASAL Q3-4H 09/24/20 18 2017 Inactive sertraline 50 mg tablet RxNorm: 102673 1 Tablet(s) PO daily 09/09/20 18 2018 Inactive Please note dose trazodone 50 mg tablet RxNorm: 298036 1 Tablet(s) PO QHS 09/06/20 18 2018 Inactive sertraline 50 mg tablet RxNorm: 328835 1 Tablet(s) PO daily 09/06/20 18 2017 Inactive amoxicillin 500 mg tablet RxNorm: 184913 1 Tablet(s) PO Q12H 08/31/20 18 2017 Inactive albuterol sulfate 2.5 mg/3 mL (0.083 %) solution for nebulization RxNorm: 551198 1 Vial INH QID 08/10/20 18 2018 Inactive 60/box. Please do not fill early. Please do not auto refill. Prozac 10 mg capsule RxNorm: 609201 1 Capsule(s) PO daily 08/09/20 18 2017 Inactive buspirone 7.5 mg tablet RxNorm: 895319 1 Tablet(s) PO BID 08/09/20 18 2018 Inactive gabapentin 300 mg capsule RxNorm: 735083 1 Capsule(s) PO TID as needed 08/01/20 18 2018 Inactive hydrochlorothiazide 12.5 mg tablet RxNorm: 251093 1 Tablet(s) PO QAM 08/01/20 18 2018 Inactive ranitidine 150 mg tablet RxNorm: 153546 1 Tablet(s) PO BID 08/01/20 18 2018 Inactive Macrobid 100 mg capsule RxNorm: 948631 1 Capsule(s) PO Q12H 06/21/20 18 2017 Inactive Singulair 10 mg tablet RxNorm: 406607 1 Tablet(s) PO daily 06/14/20 18 2018 Inactive Ventolin HFA 90 mcg/actuation aerosol inhaler RxNorm: 2278565 2 Puff(s) INH QID 06/14/20 18 2018 Inactive Singulair 10 mg tablet RxNorm: 545339 1 Tablet(s) PO daily 06/14/20 18 2017 Inactive buspirone 7.5 mg tablet RxNorm: 496532 1 Tablet(s) PO BID 06/14/20 18 2017 Inactive Prozac 10 mg capsule RxNorm: 049133 1 Capsule(s) PO daily 06/14/20 18 2017 Inactive Neilmed Pediatric Sinus Rinse Refill packet RxNorm: 1 Unit Dose NASAL PRN 05/31/20 18 2021 Inactive diclofenac sodium 75 mg tablet,delayed release RxNorm: 021483 1 Tablet(s) PO BID 05/31/20 18 2017 Inactive lisinopril 2.5 mg tablet RxNorm: 790347 1 Tablet(s) PO daily 05/31/20 18 2017 Inactive metoprolol succinate ER 50 mg tablet,extended release 24 hr RxNorm: 612947 1 Tablet(s) PO daily 05/31/20 18 2017 Inactive levothyroxine 50 mcg tablet RxNorm: 250382 1 Tablet(s) PO daily 05/31/20 18 2017 Inactive TRUEplus Lancets 30 gauge RxNorm: 1 Lancets Miscellaneous QAM 05/31/20 18 2017 Inactive 100/box Ventolin HFA 90 mcg/actuation aerosol inhaler RxNorm: 864110 2 Puff(s) INH QID 05/31/20 18 2017 Inactive Aleve 220 mg capsule RxNorm: 3795462 1 Capsule(s) PO BID 05/31/20 18 2018 Inactive ranitidine 150 mg tablet RxNorm: 375511 1 Tablet(s) PO BID 05/31/20 18 2017 Inactive gabapentin 300 mg capsule RxNorm: 775049 1 Capsule(s) PO TID as needed 05/31/20 18 2017 Inactive atorvastatin 20 mg tablet RxNorm: 348860 1 Tablet(s) PO QHS 05/31/20 18 2017 Inactive True Metrix Glucose Test Strip RxNorm: 1 Test Strips Miscellaneous QAM 05/31/20 18 2017 Inactive 50/container Calcium 600-D3 Plus 600 mg calcium-800 unit-50 mg tablet RxNorm: 1 Tablet(s) PO daily take an additonal tablet for itching. 05/31/20 18 2017 Inactive hydrochlorothiazide 12.5 mg tablet RxNorm: 558013 1 Tablet(s) PO QAM 05/31/20 18 2017 Inactive Flintstones Complete (iron) 18 mg iron chewable tablet RxNorm: 1 Tablet(s) PO daily 05/31/20 18 2017 Inactive d-mannose oral powder RxNorm: PO 18 2021 Inactive True Metrix Glucose Meter RxNorm: miscellaneous 08/17/20 19 2018 Inactive sertraline 50 mg tablet RxNorm: 182294 1 Tablet(s) PO daily 11/28/19 20 2019 Inactive loperamide 2 mg tablet RxNorm: 660367 oral 09/29/20 19 2018 Inactive Symbicort 160 mcg-4.5 mcg/actuation HFA aerosol inhaler RxNorm: 4896372 2 Puff(s) INH BID 08/17/202018 Inactive Medication Administered No Medication Administered data Procedures Procedure Codes Date Tobacco Assessment/Screening CPT-4: TCA Fall Risk Assessment SNOMED CT: 08862554 4 CPT-4: DFRA 01/01/2020 Functional Assessment CPT-4: DFA 01/01/2020 [facility] Assessment CPT-4: DSWA 11/04 Patient Health Questionnaire CPT-4: DPHQ [facility] Assessment CPT-4: DSWA 10/03 Hypertension CPT-4: HTN 10/17/2019 Fall Risk Assessment SNOMED CT: 42249324 4 CPT-4: DFRA 09/19/2019 Functional Assessment CPT-4: DFA 09/19/2019 Urinalysis, dip stick CPT-4: 76119 06/21/2019 Tobacco Assessment/Screening CPT-4: TCA Patient Health Questionnaire CPT-4: DPHQ AHA/REBECCA Classification Assessment CPT-4: DAHA 04/25/2019 Controlled Substance Report CPT-4: CTRSU 04/03 Urinalysis, dip stick CPT-4: 82958 03/28/2019 Urinalysis, dip stick CPT-4: 57042 03/28/2019 [id number] CPT-4: 00999 Unknown [id number] CPT-4: 15186 Unknown Gynecology Referral SNOMED CT: 185894613 CPT-4: R14 Unknown Reason For Visit No Reason For Visit data Plan of Care Planned Activity Notes Codes Status Date Referral: Pending Gynecology Referral Information Referral Processed Referral: Pending Pulmonolog y Referral Information Referral Processed Referral: Pending Psychiatry Referral Information Referral Initiated Referral: Pending Respirator y Services Referral Information Referral Initiated Referral: Pending Ophthalmol ogy Referral Information Referral Initiated Referral: [facility] WPtel: [address] [facility] [address] Web Ui Developer placed a call out to the patient to notify her that it has been recommended that she be seen by 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 Patient agreed to be seen, does not have a provider of choice and no transportation issues. Web Ui Developer faxed referral and clinical notes to [facility] in [place], [place] near the patient's home. Patient to [...] seen and prefers a provider in the [place] or [place] area. Web Ui Developer placed a call out to everyone listed in the area and the only location that was able to accept the patient's insurance was [place] [address] [place] [address] and spoke with Maylin. Maylin asked that the patient's referral, face sheet and visit notes be faxed to . Web Ui Developer faxed over requested documents. Patient appointment confirmation letter generated and mailed to her home address. Patient to call to schedule an appointment. Processed Referral: [facility] WPtel: [address] [place] [address] [place], [place] [id number] Patient notified that it has been advised that she be seen by Neurology. Patient agreed to be seen and prefers to be seen by a provider in the [place], [place] area. Patient denies any concerns with transportation, and prefers to schedule her own appointment. Web Ui Developer placed a call out to [facility] and spoke with Neeraj P: who confirmed that their office is able to accept new patients and the patient's insurance. After confirming the providers fax number, travel writer faxed over the patient's referral, and [...]
--- OUTSIDE RECORDS SUMMARY | 2023-12-07 02:11 | XMS_ITS | CCD ---
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 Egg Caser Name Role Phone Palomo SLATE ROOFER, Anna Primary Care Provider Unav ailable Unavailable Chronic Care Management Unavaila ble Summary Purpose DataExchange Insurance Providers Payer name Policy type / Coverage type Covered alliance party ID Effective Begin Date Effective End Date SUKI MAYO [id number] Unknown Unknown Family history Mother Diagnosis Age [...] Unknown Disability 05/31/[address]: 374919332 Has never s moked or chewed tobacco 05/31/[address]: 737625567 Never drinks alco hol 05/31/2018 Has the [...] atus Abrasion of toe ICD-10: S90.416A ICD-9: 917.0 02/14/2020 Active Encounter for screening for malignant neoplasm of cervix ICD-10: Z12.4 ICD-9: V76.2 04/25/2019 Active Essential (primary) hypertension ICD-10: I10 ICD-9: 401.9 10/03/2018 Active Obstructive sleep apnea (chio lt) (pediatric) ICD-10: G47.33 ICD-9: 327.23 06/21/2019 Active Type 2 diabetes mellitus wit h peripheral neuropathy ICD-10: E11.42 ICD-9: 250.60 11/28/2019 Active Encounter for screening for tobacco use ICD-10: Z01.89 ICD-9: V72.85 01/01/2020 Active [facility] ICD-10: H10.029 ICD-9: 372.03 12/29/2019 Active [...] Asthma ICD-10: J45.909 ICD-9: 493.90 08/08/2018 Active Chronic kidney disease, unspecified ICD- 10: [...] V03.9 04/25/2019 Active Encounter for screening, unspecified ICD-10: Z13.9 ICD-9: V82.9 09/05/2018 Active Polyneuropathy, unspecified ICD-10: G62. 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) use of non-steroidal anti-inflammatories (NSAID) ICD-10: Z79.1 ICD-9: V58.64 06/13/2018 Active Medications Medication Codes Instructions Start Date Stop Date Status Fill Instructions True Metrix Glucose Test Strip RxNorm: 1 Test Strips Miscellaneous every morning 03/13/20 20 2019 Inactive 100/container loperamide 2 mg tablet RxNorm: 591506 1 Tablet(s) Oral as needed take one tablet after each loose stool, maximum of 8 tablets in 24 hours 02/22/20 20 2019 Inactive True Metrix Glucose Test Strip RxNorm: 1 Test Strips Miscellaneous QAM 02/22/20 20 2019 Inactive 100/container cetirizine 10 mg tablet RxNorm: 4932315 1 Tablet(s) PO daily 01/17/20 20 2019 Inactive levothyroxine 50 mcg tablet RxNorm: 211634 1 Tablet(s) PO daily 01/17/20 20 2020 Inactive gabapentin 300 mg capsule RxNorm: 048983 1 Capsule(s) PO TID 01/17/20 20 2019 Inactive loperamide 2 mg tablet RxNorm: 703147 1 Tablet(s) Oral as needed take one tablet after each loose stool, maximum of 8 tablets in 24 hours 01/17/20 20 2019 Inactive quetiapine 100 mg tablet RxNorm: 389451 1 Tablet(s) Oral every night at bedtime 01/17/20 20 2019 Inactive lisinopril 2.5 mg tablet RxNorm: 102403 1 Tablet(s) PO daily 01/15/20 20 2020 Inactive Singulair 10 mg tablet RxNorm: 515129 1 Tablet(s) PO daily 01/15/20 20 2020 Inactive levothyroxine 50 mcg tablet RxNorm: 318745 1 Tablet(s) PO daily 01/15/20 20 2019 Inactive gabapentin 300 mg capsule RxNorm: 338721 1 Capsule(s) PO TID 01/15/20 20 2019 Inactive cetirizine 10 mg tablet RxNorm: 8313978 1 Tablet(s) PO daily 01/15/20 20 2019 Inactive gentamicin 0.3 % eye drops RxNorm: 064887 1 Drop(s) ophthalmic (eye) four times a day 12/29/19 20 2019 Inactive gentamicin 0.3 % eye drops RxNorm: 325257 1 Drop(s) ophthalmic (eye) four times a day 12/29/19 20 2019 Inactive gentamicin 0.3 % eye drops RxNorm: 003884 1 Drop(s) ophthalmic (eye) four times a day 12/29/19 20 2019 Inactive hydrochlorothiazide 25 mg tablet RxNorm: 828324 1 Tablet(s) Oral every day 12/21/19 20 2019 Inactive Sudafed 12 Hour 120 mg tablet,extended release RxNorm: 0655097 TAKE (1) TABLET BY MOUTH EVERY 12 HOURS NEEDED 12/21/19 20 2019 Inactive loperamide 2 mg tablet RxNorm: 746976 1 Tablet(s) Oral as needed take one tablet after each loose stool, maximum of 8 tablets in 24 hours 12/11/19 20 2019 Inactive loperamide 2 mg tablet RxNorm: 200486 1 Tablet(s) Oral as needed take one tablet after each loose stool, maximum of 8 tablets in 24 hours 12/11/19 20 2019 Inactive atorvastatin 40 mg tablet RxNorm: 579773 1 Tablet(s) Oral every day 11/29/19 20 2020 Inactive sertraline 100 mg tablet RxNorm: 049675 1 Tablet(s) Oral 11/28/19 20 2019 Inactive quetiapine 100 mg tablet RxNorm: 517443 1 Tablet(s) Oral every night at bedtime 11/28/19 20 2019 Inactive omeprazole 20 mg capsule,delayed release RxNorm: 148423 1 Capsule(s) Oral every day 11/20/19 20 2019 Inactive amoxicillin 250 mg capsule RxNorm: 194756 1 Capsule(s) Oral three times a day 11/07/19 20 2019 Inactive multivitamin with iron-mineral tablet RxNorm: 1 Tablet(s) Oral every day 10/29/19 20 2021 Inactive cetirizine 10 mg tablet RxNorm: 4765384 1 Tablet(s) PO daily 10/20/19 20 2019 Inactive This refill negates all other refills of this medication. Please do not auto refill Singulair 10 mg tablet RxNorm: 132487 1 Tablet(s) PO daily 10/20/19 20 2019 Inactive This refill negates all other refills of this medication gabapentin 300 mg capsule RxNorm: 229909 1 Capsule(s) PO TID 10/20/19 20 2019 Inactive lisinopril 2.5 mg tablet RxNorm: 401212 1 Tablet(s) PO daily 10/20/19 20 2019 Inactive levothyroxine 50 mcg tablet RxNorm: 279591 1 Tablet(s) PO daily 10/20/19 20 2019 Inactive This refill negates all other refills of this medication fenugreek seed extract 500 mg capsule RxNorm: 1 Capsule(s) Oral three times a day 10/17/19 20 2021 Inactive hydrochlorothiazide 25 mg tablet RxNorm: 126360 1 Tablet(s) Oral every day 10/17/19 20 2019 Inactive Alcohol Prep Pads RxNorm: 877317 1 Patch TOP QAM 10/16/19 20 2020 Inactive loperamide 2 mg tablet RxNorm: 249726 1 Tablet(s) Oral as needed take one [...] 2019 Inactive hydrochlorothiazide 25 mg tablet RxNorm: 874316 1 Tablet(s) Oral every day 09/19/20 19 2019 Inactive Sudafed 12 Hour 120 mg tablet,extended release RxNorm: 1599297 1 Tablet(s) Oral every 12 hours as needed 09/11/20 19 2018 Inactive omeprazole 20 mg capsule,delayed release RxNorm: 190281 1 Capsule(s) Oral every day 09/07/20 19 2019 Inactive Sudafed 12 Hour 120 mg tablet,extended release RxNorm: 5084937 1 Tablet(s) Oral every 12 hours as needed 09/04/20 19 2018 Inactive pantoprazole 40 mg tablet,delayed release RxNorm: 564303 1 Tablet(s) Oral every day 08/24/20 19 2018 Inactive discontinue any other H2Blkr. and PPI albuterol sulfate 2.5 mg/3 mL (0.083 %) solution for nebulization RxNorm: 647020 1 Vial Inhalation every four hours as needed as needed for dyspnea 08/17/202019 Inactive 60/box. This refill negates all other refills of this medication. Please do not fill early. Please do not auto refill. Symbicort 160 mcg-4.5 mcg/actuation HFA aerosol inhaler RxNorm: 7382216 2 Puff(s) INH BID 08/17/20 No Stop Date Active Alcohol Prep Pads RxNorm: 728501 1 Patch TOP QAM 08/17/20 19 2019 Inactive Ventolin HFA 90 mcg/actuation aerosol inhaler RxNorm: 367218 2 Puff(s) INH QID 08/09/202019 Inactive Please do not fill early. Please do not auto refill. This refill negates all other refills of this medication True Metrix Glucose Test Strip RxNorm: 1 Test Strips Miscellaneous QA 08/09/20 19 2019 Inactive 100/container atorvastatin 40 mg tablet RxNorm: 274483 1 Tablet(s) Oral every day 07/04/20 19 2019 Inactive levmetamfetamine 50 mg nasal inhaler RxNorm: 1 Unit(s) NASAL Q3-4H Do not use more than every 3 hours or 8 times/24hours 06/26/20 19 2021 Inactive Please do not auto refill. This refill negates all other refills of this medication diclofenac sodium 75 mg tablet,delayed release RxNorm: 544368 1 Tablet(s) PO BID 06/26/20 19 2019 Inactive This refill negates all other refills of this medication buspirone 7.5 mg tablet RxNorm: 000762 1 Tablet(s) PO BID 06/26/20 19 2020 Inactive This refill negates all other refills of this medication hydrochlorothiazide 12.5 mg tablet RxNorm: 649905 1 Tablet(s) PO QAM 06/26/20 19 2019 Inactive Ventolin HFA 90 mcg/actuation aerosol inhaler RxNorm: 599979 2 Puff(s) INH QID 06/26/20 19 2018 Inactive Please do not fill early. Please do not auto refill. This refill negates all other refills of this medication Singulair 10 mg tablet RxNorm: 820785 1 Tablet(s) PO daily 06/26/20 19 2019 Inactive This refill negates all other refills of this medication cetirizine 10 mg tablet RxNorm: 0946023 1 Tablet(s) PO daily 06/26/20 19 2019 Inactive This refill negates all other refills of this medication. Please do not auto refill levothyroxine 50 mcg tablet RxNorm: 698168 1 Tablet(s) PO daily 06/26/202019 Inactive This refill negates all other refills of this medication ranitidine 150 mg tablet RxNorm: 935063 1 Tablet(s) PO BID 06/26/20 19 2018 Inactive This refill negates all other refills of this medication Calcium 600-D3 Plus (mag-zinc) 600 mg calcium-800 unit-50 mg tablet RxNorm: 1 Tablet(s) PO daily take an additonal tablet for itching. 06/26/20 19 2018 Inactive This refill negates all other refills of this medication albuterol sulfate 2.5 mg/3 mL (0.083 %) solution for nebulization RxNorm: 291279 1 Vial INH QID 06/26/20 19 2018 Inactive 60/box. This refill negates all other refills of this medication. Please do not fill early. Please do not auto refill. lisinopril 2.5 mg tablet RxNorm: 529718 1 Tablet(s) PO daily 06/21/20 19 2019 Inactive gabapentin 300 mg capsule RxNorm: 210134 1 Capsule(s) PO TID 06/21/20 19 2019 Inactive atorvastatin 20 mg tablet RxNorm: 472537 1 Tablet(s) PO QHS 06/07/20 19 2018 Inactive This refill negates all other refills of this medication TRUEplus Lancets 30 gauge RxNorm: 1 Lancets Miscellaneous QAM 05/29/20 19 2018 Inactive 100/box gabapentin 300 mg capsule RxNorm: 239439 1 Capsule(s) PO TID 05/03/20 19 2018 Inactive Flnickolas Complete (iron) 18 mg iron chewable tablet RxNorm: 1 Tablet(s) PO daily 04/04/20 19 2021 Inactive This refill negates all other refills of this medication gabapentin 300 mg capsule RxNorm: 396077 1 Capsule(s) PO TID as needed 02/01/20 19 2018 Inactive True Metrix Glucose Test Strip RxNorm: 1 Test Strips Miscellaneous QAM 02/01/20 19 2018 Inactive 100/container Alcohol Prep Pads RxNorm: 584459 1 Patch TOP QAM 02/01/20 19 2018 Inactive TRUEplus Lancets 30 gauge RxNorm: 1 Lancets Miscellaneous QAM 02/01/20 19 2018 Inactive 100/box lisinopril 2.5 mg tablet RxNorm: 749657 1 Tablet(s) PO daily 12/28/19 19 2018 Inactive ranitidine 150 mg tablet RxNorm: 533021 1 Tablet(s) PO BID 10/21/192018 Inactive This refill negates all other refills of this medication albuterol sulfate 2.5 mg/3 mL (0.083 %) solution for nebulization RxNorm: 437297 1 Vial INH QID 10/21/19 19 2018 [...] this medication gabapentin 300 mg capsule RxNorm: 139385 1 Capsule(s) PO TID as needed 10/21/19 19 2018 Inactive atorvastatin 20 mg tablet RxNorm: 346904 1 Tablet(s) PO QHS 10/21/19 19 2018 Inactive This refill negates all other refills of this medication trazodone 50 mg tablet RxNorm: 902377 1 Tablet(s) PO QHS 10/21/19 19 2018 Inactive This refill negates all other refills of this medication Ventolin HFA 90 mcg/actuation aerosol inhaler RxNorm: 511159 2 Puff(s) INH QID 10/21/192018 Inactive Please do not fill early. Please do not auto refill. This refill negates all other refills of this medication Calcium 600-D3 Plus 600 mg calcium-800 unit-50 mg tablet RxNorm: 1 Tablet(s) PO daily take an additonal tablet for itching. 10/21/192018 Inactive This refill negates all other refills of this medication Singulair 10 mg tablet RxNorm: 753987 1 Tablet(s) PO daily 10/21/192018 Inactive This refill negates all other refills of this medication buspirone 7.5 mg tablet RxNorm: 300940 1 Tablet(s) PO BID 10/21/192018 Inactive This refill negates all other refills of this medication diclofenac sodium 75 mg tablet,delayed release RxNorm: 570215 1 Tablet(s) PO BID 10/21/192018 Inactive This refill negates all other refills of this medication hydrochlorothiazide 12.5 mg tablet RxNorm: 159809 1 Tablet(s) PO QAM 10/21/192018 Inactive metoprolol succinate ER 50 mg tablet,extended release 24 hr RxNorm: 493343 1 Tablet(s) PO daily 10/21/192018 Inactive This refill negates all other refills of this medication levothyroxine 50 mcg tablet RxNorm: 779149 1 Tablet(s) PO daily 10/21/19 19 2018 Inactive This refill negates all other refills of this medication cetirizine 10 mg tablet RxNorm: 7915138 1 Tablet(s) PO daily 10/21/19 19 2018 Inactive This refill negates all other refills of this medication. Please do not auto refill Flintstones Complete (iron) 18 mg iron chewable tablet RxNorm: 1 Tablet(s) PO daily 10/21/19 19 2018 Inactive This refill negates all other refills of this medication buspirone 7.5 mg tablet RxNorm: 697791 1 Tablet(s) PO BID 10/12/19 19 2018 Inactive cetirizine 10 mg tablet RxNorm: 2232045 1 Tablet(s) PO daily 09/28/20 18 2018 Inactive Guaiasorb DM 10 mg-100 mg/5 mL oral liquid RxNorm: 254860 10 Milliliter(s) PO As needed every 4 hr 09/24/202018 Inactive Vicks Vaporub 4.7 %-1.2 %-2.6 % topical ointment RxNorm: 4990053 1 Application TOP TID 09/24/20 18 2018 Inactive levmetamfetamine 50 mg nasal inhaler RxNorm: 1 Unit(s) NASAL Q3-4H 09/24/20 18 2017 Inactive sertraline 50 mg tablet RxNorm: 461019 1 Tablet(s) PO daily 09/09/20 18 2018 Inactive Please note dose trazodone 50 mg tablet RxNorm: 965920 1 Tablet(s) PO QHS 09/06/20 18 2018 Inactive sertraline 50 mg tablet RxNorm: 663820 1 Tablet(s) PO daily 09/06/20 18 2017 Inactive amoxicillin 500 mg tablet RxNorm: 046744 1 Tablet(s) PO Q12H 08/31/20 18 2017 Inactive albuterol sulfate 2.5 mg/3 mL (0.083 %) solution for nebulization RxNorm: 215661 1 Vial INH QID 08/10/20 18 2018 Inactive 60/box. Please do not fill early. Please do not auto refill. Prozac 10 mg capsule RxNorm: 427314 1 Capsule(s) PO daily 08/09/20 18 2017 Inactive buspirone 7.5 mg tablet RxNorm: 372045 1 Tablet(s) PO BID 08/09/20 18 2018 Inactive gabapentin 300 mg capsule RxNorm: 431176 1 Capsule(s) PO TID as needed 08/01/20 18 2018 Inactive hydrochlorothiazide 12.5 mg tablet RxNorm: 219897 1 Tablet(s) PO QAM 08/01/20 18 2018 Inactive ranitidine 150 mg tablet RxNorm: 424687 1 Tablet(s) PO BID 08/01/20 18 2018 Inactive Macrobid 100 mg capsule RxNorm: 741632 1 Capsule(s) PO Q12H 06/21/20 18 2017 Inactive Singulair 10 mg tablet RxNorm: 645535 1 Tablet(s) PO daily 06/14/20 18 2018 Inactive Ventolin HFA 90 mcg/actuation aerosol inhaler RxNorm: 6159653 2 Puff(s) INH QID 06/14/20 18 2018 Inactive Singulair 10 mg tablet RxNorm: 777448 1 Tablet(s) PO daily 06/14/20 18 2017 Inactive buspirone 7.5 mg tablet RxNorm: 785133 1 Tablet(s) PO BID 06/14/20 18 2017 Inactive Prozac 10 mg capsule RxNorm: 369052 1 Capsule(s) PO daily 06/14/20 18 2017 Inactive Neilmed Pediatric Sinus Rinse Refill packet RxNorm: 1 Unit Dose NASAL PRN 05/31/20 18 2021 Inactive diclofenac sodium 75 mg tablet,delayed release RxNorm: 492460 1 Tablet(s) PO BID 05/31/20 18 2017 Inactive lisinopril 2.5 mg tablet RxNorm: 031426 1 Tablet(s) PO daily 05/31/20 18 2017 Inactive metoprolol succinate ER 50 mg tablet,extended release 24 hr RxNorm: 184391 1 Tablet(s) PO daily 05/31/20 18 2017 Inactive levothyroxine 50 mcg tablet RxNorm: 520651 1 Tablet(s) PO daily 05/31/20 18 2017 Inactive TRUEplus Lancets 30 gauge RxNorm: 1 Lancets Miscellaneous QAM 05/31/20 18 2017 Inactive 100/box Ventolin HFA 90 mcg/actuation aerosol inhaler RxNorm: 473686 2 Puff(s) INH QID 05/31/20 18 2017 Inactive Aleve 220 mg capsule RxNorm: 9338337 1 Capsule(s) PO BID 05/31/20 18 2018 Inactive ranitidine 150 mg tablet RxNorm: 933845 1 Tablet(s) PO BID 05/31/20 18 2017 Inactive gabapentin 300 mg capsule RxNorm: 767764 1 Capsule(s) PO TID as needed 05/31/20 18 2017 Inactive atorvastatin 20 mg tablet RxNorm: 871903 1 Tablet(s) PO QHS 05/31/20 18 2017 Inactive True Metrix Glucose Test Strip RxNorm: 1 Test Strips Miscellaneous QAM 05/31/20 18 2017 Inactive 50/container Calcium 600-D3 Plus 600 mg calcium-800 unit-50 mg tablet RxNorm: 1 Tablet(s) PO daily take an additonal tablet for itching. 05/31/20 18 2017 Inactive hydrochlorothiazide 12.5 mg tablet RxNorm: 145860 1 Tablet(s) PO QAM 05/31/20 18 2017 Inactive Flintstones Complete (iron) 18 mg iron chewable tablet RxNorm: 1 Tablet(s) PO daily 05/31/20 18 2017 Inactive d-mannose oral powder RxNorm: PO 18 2021 Inactive True Metrix Glucose Meter RxNorm: miscellaneous 08/17/20 19 2018 Inactive sertraline 50 mg tablet RxNorm: 525419 1 Tablet(s) PO daily 11/28/19 20 2019 Inactive loperamide 2 mg tablet RxNorm: 290147 oral 09/29/202018 Inactive Symbicort 160 mcg-4.5 mcg/actuation HFA aerosol inhaler RxNorm: 7721063 2 Puff(s) INH BID 08/17/202018 Inactive Medication Administered No Medication Administered data Procedures Procedure Codes Date Tobacco Assessment/Screening CPT-4: TCA Fall Risk Assessment SNOMED CT: 68297624 4 CPT-4: DFRA 01/01/2020 Functional Assessment CPT-4: DFA 01/01/2020 [place] Assessment CPT-4: DSWA 11/04 Patient Health Questionnaire CPT-4: DPHQ [place] Assessment CPT-4: DSWA 10/03 Hypertension CPT-4: HTN 10/17/2019 Fall Risk Assessment SNOMED CT: 95874642 4 CPT-4: DFRA 09/19/2019 Functional Assessment CPT-4: DFA 09/19/2019 Urinalysis, dip stick CPT-4: 03320 06/21/2019 Tobacco Assessment/Screening CPT-4: TCA Patient Health Questionnaire CPT-4: DPHQ AHA/REBECCA Classification Assessment CPT-4: DAHA 04/25/2019 Controlled Substance Report CPT-4: CTRSU 04/03 Urinalysis, dip stick CPT-4: 75438 03/28/2019 Urinalysis, dip stick CPT-4: 64675 03/28/2019 [id number] CPT-4: 61186 Unknown [id number] CPT-4: 68178 Unknown Gynecology Referral SNOMED CT: 458642382 CPT-4: R14 Unknown Reason For Visit No Reason For Visit data Plan of Care Planned Activity Notes Codes Status Date Referral: Pending Gynecology Referral Information Referral Processed Referral: Pending Pulmonolog y Referral Information Referral Processed Referral: Pending Psychiatry Referral Information Referral Initiated Referral: Pending Respirator y Services Referral Information Referral Initiated Referral: Pending Ophthalmol ogy Referral Information Referral Initiated Referral: [facility] [place] [facility] WPtel: [address] [place] [address] [place] House Detective placed a call out to the patient to notify her that it has been recommended that she be seen by 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 Patient agreed to be seen, does not have a provider of choice and no transportation issues. House Detective faxed referral and clinical notes to [facility] in [place], [place] near the patient's home. Patient to [...] seen and prefers a provider in the [place] or [place] area. House Detective placed a call out to everyone listed in the area and the only location that was able to accept the patient's insurance was [address] [id number] and spoke with Maylin. Maylin asked that the patient's referral, face sheet and visit notes be faxed to . House Detective faxed over requested documents. Patient appointment confirmation letter generated and mailed to her home address. Patient to call to schedule an appointment. Processed [facility] WPtel: [address] [place] [address] Patient notified that it has been advised that she be seen by Neurology. Patient agreed to be seen and prefers to be seen by a provider in the [place], [place] area. Patient denies any concerns with transportation, and prefers to schedule her own appointment. House Detective placed a call out to [facility] and spoke with Neeraj P: who confirmed that their office is able to accept new patients and the patient's insurance. After confirming the providers fax number, race and sports book writer faxed over the patient's referral, and [...]
--- OUTSIDE RECORDS SUMMARY | 2023-12-07 02:11 | XMS_ITS | CCD ---
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 Training And Development Director Name Role Phone Palomo MANUFACTURING SUPERVISOR, Anna Primary Care Provider Unav ailable Unavailable Chronic Care Management Unavaila ble Summary Purpose DataExchange Insurance Providers Payer name Policy type / Coverage type Covered constitution party ID Effective Begin Date Effective End Date SUKI MAYO [id number] Unknown Unknown Family history Mother Diagnosis Age [...] Unknown Disability 05/31/[address]: 685025436 Has never s moked or chewed tobacco 05/31/[address]: 952952246 Never drinks alco hol 05/31/2018 Has the [...] use ICD-10: Z01.89 ICD-9: V72.85 01/01/2020 Active [place] [facility] ICD-10: H10.029 ICD-9: 372.03 12/29/2019 Active [...] ICD-10: UXZ.01 ICD-9: XZ0.1 04/27/2019 Active [facility] living (current[facility] ed[facility] therapy ICD-10: Z79.899 ICD-9: [...] Headache ICD-10: R51 ICD-9: 784.0 10/03/2018 Active emt intermediate (current) use of non-steroidal anti-inflammatories (NSAID) ICD-10: Z79.1 ICD-9: V58.64 06/13/2018 Active Medications Medication Codes Instructions Start Date Stop Date Status Fill Instructions Sudafed 12 Hour 120 mg tablet,extended release RxNorm: 4495637 TAKE 1 TABLET BY MOUTH EVERY 12 HOURS NEEDED 03/14/20 20 2019 Inactive True Metrix Glucose Test Strip RxNorm: 1 Test Strips Miscellaneous every morning 03/13/20 20 2019 Inactive 100/container loperamide 2 mg tablet RxNorm: 296774 1 Tablet(s) Oral as needed take one tablet after each loose stool, maximum of 8 tablets in 24 hours 02/22/20 20 2019 Inactive True Metrix Glucose Test Strip RxNorm: 1 Test Strips Miscellaneous QAM 02/22/20 20 2019 Inactive 100/container cetirizine 10 mg tablet RxNorm: 0303024 1 Tablet(s) PO daily 01/17/20 20 2019 Inactive levothyroxine 50 mcg tablet RxNorm: 415054 1 Tablet(s) PO daily 01/17/20 20 2020 Inactive gabapentin 300 mg capsule RxNorm: 920072 1 Capsule(s) PO TID 01/17/20 20 2019 Inactive loperamide 2 mg tablet RxNorm: 350769 1 Tablet(s) Oral as needed take one tablet after each loose stool, maximum of 8 tablets in 24 hours 01/17/20 20 2019 Inactive quetiapine 100 mg tablet RxNorm: 459750 1 Tablet(s) Oral every night at bedtime 01/17/20 20 2019 Inactive lisinopril 2.5 mg tablet RxNorm: 165583 1 Tablet(s) PO daily 01/15/20 20 2020 Inactive Singulair 10 mg tablet RxNorm: 651628 1 Tablet(s) PO daily 01/15/20 20 2020 Inactive levothyroxine 50 mcg tablet RxNorm: 560650 1 Tablet(s) PO daily 01/15/20 20 2019 Inactive gabapentin 300 mg capsule RxNorm: 182877 1 Capsule(s) PO TID 01/15/20 20 2019 Inactive cetirizine 10 mg tablet RxNorm: 1715516 1 Tablet(s) PO daily 01/15/20 20 2019 Inactive gentamicin 0.3 % eye drops RxNorm: 466721 1 Drop(s) ophthalmic (eye) four times a day 12/29/19 20 2019 Inactive gentamicin 0.3 % eye drops RxNorm: 470788 1 Drop(s) ophthalmic (eye) four times a day 12/29/19 20 2019 Inactive gentamicin 0.3 % eye drops RxNorm: 049346 1 Drop(s) ophthalmic (eye) four times a day 12/29/19 20 2019 Inactive hydrochlorothiazide 25 mg tablet RxNorm: 161989 1 Tablet(s) Oral every day 12/21/19 20 2019 Inactive Sudafed 12 Hour 120 mg tablet,extended release RxNorm: 7535396 TAKE (1) TABLET BY MOUTH EVERY 12 HOURS NEEDED 12/21/19 20 2019 Inactive loperamide 2 mg tablet RxNorm: 591937 1 Tablet(s) Oral as needed take one tablet after each loose stool, maximum of 8 tablets in 24 hours 12/11/19 20 2019 Inactive loperamide 2 mg tablet RxNorm: 280363 1 Tablet(s) Oral as needed take one tablet after each loose stool, maximum of 8 tablets in 24 hours 12/11/19 20 2019 Inactive atorvastatin 40 mg tablet RxNorm: 357550 1 Tablet(s) Oral every day 11/29/19 20 2020 Inactive sertraline 100 mg tablet RxNorm: 787536 1 Tablet(s) Oral 11/28/19 20 2019 Inactive quetiapine 100 mg tablet RxNorm: 926773 1 Tablet(s) Oral every night at bedtime 11/28/19 20 2019 Inactive omeprazole 20 mg capsule,delayed release RxNorm: 035742 1 Capsule(s) Oral every day 11/20/19 20 2019 Inactive amoxicillin 250 mg capsule RxNorm: 978887 1 Capsule(s) Oral three times a day 11/07/19 20 2019 Inactive multivitamin with iron-mineral tablet RxNorm: 1 Tablet(s) Oral every day 10/29/19 20 2021 Inactive cetirizine 10 mg tablet RxNorm: 2205642 1 Tablet(s) PO daily 10/20/19 20 2019 Inactive This refill negates all other refills of this medication. Please do not auto refill Singulair 10 mg tablet RxNorm: 779844 1 Tablet(s) PO daily 10/20/19 20 2019 Inactive This refill negates all other refills of this medication gabapentin 300 mg capsule RxNorm: 775913 1 Capsule(s) PO TID 10/20/19 20 2019 Inactive lisinopril 2.5 mg tablet RxNorm: 990799 1 Tablet(s) PO daily 10/20/19 20 2019 Inactive levothyroxine 50 mcg tablet RxNorm: 795351 1 Tablet(s) PO daily 10/20/19 20 2019 Inactive This refill negates all other refills of this medication fenugreek seed extract 500 mg capsule RxNorm: 1 Capsule(s) Oral three times a day 10/17/19 20 2021 Inactive hydrochlorothiazide 25 mg tablet RxNorm: 226590 1 Tablet(s) Oral every day 10/17/19 20 2019 Inactive Alcohol Prep Pads RxNorm: 820851 1 Patch TOP QAM 10/16/19 20 2020 Inactive loperamide 2 mg tablet RxNorm: 401109 1 Tablet(s) Oral as needed take one [...] 2019 Inactive hydrochlorothiazide 25 mg tablet RxNorm: 852071 1 Tablet(s) Oral every day 09/19/20 19 2019 Inactive Sudafed 12 Hour 120 mg tablet,extended release RxNorm: 1723892 1 Tablet(s) Oral every 12 hours as needed 09/11/20 19 2018 Inactive omeprazole 20 mg capsule,delayed release RxNorm: 770761 1 Capsule(s) Oral every day 09/07/20 19 2019 Inactive Sudafed 12 Hour 120 mg tablet,extended release RxNorm: 6154473 1 Tablet(s) Oral every 12 hours as needed 09/04/20 19 2018 Inactive pantoprazole 40 mg tablet,delayed release RxNorm: 597807 1 Tablet(s) Oral every day 08/24/20 19 2018 Inactive discontinue any other H2Blkr. and PPI albuterol sulfate 2.5 mg/3 mL (0.083 %) solution for nebulization RxNorm: 891996 1 Vial Inhalation every four hours as needed as needed for dyspnea 08/17/202019 Inactive 60/box. This refill negates all other refills of this medication. Please do not fill early. Please do not auto refill. Symbicort 160 mcg-4.5 mcg/actuation HFA aerosol inhaler RxNorm: 7981481 2 Puff(s) INH BID 08/17/20 19 No Stop Date Active Alcohol Prep Pads RxNorm: 152320 1 Patch TOP QAM 08/17/20 19 2019 Inactive Ventolin HFA 90 mcg/actuation aerosol inhaler RxNorm: 674171 2 Puff(s) INH QID 08/09/20 19 2019 Inactive Please do not fill early. Please do not auto refill. This refill negates all other refills of this medication True Metrix Glucose Test Strip RxNorm: 1 Test Strips Miscellaneous QAM 08/09/20 19 2019 Inactive 100/container atorvastatin 40 mg tablet RxNorm: 890481 1 Tablet(s) Oral every day 07/04/20 19 2019 Inactive levmetamfetamine 50 mg nasal inhaler RxNorm: 1 Unit(s) NASAL Q3-4H Do not use more than every 3 hours or 8 times/24hours 06/26/20 19 2021 Inactive Please do not auto refill. This refill negates all other refills of this medication diclofenac sodium 75 mg tablet,delayed release RxNorm: 336357 1 Tablet(s) PO BID 06/26/20 19 2019 Inactive This refill negates all other refills of this medication buspirone 7.5 mg tablet RxNorm: 506783 1 Tablet(s) PO BID 06/26/20 19 2020 Inactive This refill negates all other refills of this medication hydrochlorothiazide 12.5 mg tablet RxNorm: 720351 1 Tablet(s) PO QAM 06/26/20 19 2019 Inactive Ventolin HFA 90 mcg/actuation aerosol inhaler RxNorm: 025220 2 Puff(s) INH QID 06/26/20 19 2018 Inactive Please do not fill early. Please do not auto refill. This refill negates all other refills of this medication Singulair 10 mg tablet RxNorm: 782074 1 Tablet(s) PO daily 06/26/20 19 2019 Inactive This refill negates all other refills of this medication cetirizine 10 mg tablet RxNorm: 1094659 1 Tablet(s) PO daily 06/26/20 19 2019 Inactive This refill negates all other refills of this medication. Please do not auto refill levothyroxine 50 mcg tablet RxNorm: 650250 1 Tablet(s) PO daily 06/26/20 19 2019 Inactive This refill negates all other refills of this medication ranitidine 150 mg tablet RxNorm: 254675 1 Tablet(s) PO BID 06/26/20 19 2018 Inactive This refill negates all other refills of this medication Calcium 600-D3 Plus (mag-zinc) 600 mg calcium-800 unit-50 mg tablet RxNorm: 1 Tablet(s) PO daily take an additonal tablet for itching. 06/26/20 19 2018 Inactive This refill negates all other refills of this medication albuterol sulfate 2.5 mg/3 mL (0.083 %) solution for nebulization RxNorm: 848228 1 Vial INH QID 06/26/20 19 2018 Inactive 60/box. This refill negates all other refills of this medication. Please do not fill early. Please do not auto refill. lisinopril 2.5 mg tablet RxNorm: 496577 1 Tablet(s) PO daily 06/21/20 19 2019 Inactive gabapentin 300 mg capsule RxNorm: 601070 1 Capsule(s) PO TID 06/21/20 19 2019 Inactive atorvastatin 20 mg tablet RxNorm: 116817 1 Tablet(s) PO QHS 06/07/20 19 2018 Inactive This refill negates all other refills of this medication TRUEplus Lancets 30 gauge RxNorm: 1 Lancets Miscellaneous QAM 05/29/20 19 2018 Inactive 100/box gabapentin 300 mg capsule RxNorm: 823124 1 Capsule(s) PO TID 05/03/20 19 2018 Inactive Flintstones Complete (iron) 18 mg iron chewable tablet RxNorm: 1 Tablet(s) PO daily 04/04/20 19 2021 Inactive This refill negates all other refills of this medication gabapentin 300 mg capsule RxNorm: 258332 1 Capsule(s) PO TID as needed 02/01/20 19 2018 Inactive True Metrix Glucose Test Strip RxNorm: 1 Test Strips Miscellaneous QAM 02/01/20 19 2018 Inactive 100/container Alcohol Prep Pads RxNorm: 815690 1 Patch TOP QAM 02/01/20 19 2018 Inactive TRUEplus Lancets 30 gauge RxNorm: 1 Lancets Miscellaneous QAM 02/01/20 19 2018 Inactive 100/box lisinopril 2.5 mg tablet RxNorm: 859042 1 Tablet(s) PO daily 12/28/192018 Inactive ranitidine 150 mg tablet RxNorm: 716429 1 Tablet(s) PO BID 10/21/192018 Inactive This refill negates all other refills of this medication albuterol sulfate 2.5 mg/3 mL (0.083 %) solution for nebulization RxNorm: 586709 1 Vial INH QID 10/21/19 19 2018 [...] this medication gabapentin 300 mg capsule RxNorm: 776990 1 Capsule(s) PO TID as needed 10/21/19 19 2018 Inactive atorvastatin 20 mg tablet RxNorm: 154465 1 Tablet(s) PO QHS 10/21/19 19 2018 Inactive This refill negates all other refills of this medication trazodone 50 mg tablet RxNorm: 941728 1 Tablet(s) PO QHS 10/21/19 19 2018 Inactive This refill negates all other refills of this medication Ventolin HFA 90 mcg/actuation aerosol inhaler RxNorm: 674909 2 Puff(s) INH QID 10/21/192018 Inactive Please do not fill early. Please do not auto refill. This refill negates all other refills of this medication Calcium 600-D3 Plus 600 mg calcium-800 unit-50 mg tablet RxNorm: 1 Tablet(s) PO daily take an additonal tablet for itching. 10/21/192018 Inactive This refill negates all other refills of this medication Singulair 10 mg tablet RxNorm: 764345 1 Tablet(s) PO daily 10/21/192018 Inactive This refill negates all other refills of this medication buspirone 7.5 mg tablet RxNorm: 402809 1 Tablet(s) PO BID 10/21/192018 Inactive This refill negates all other refills of this medication diclofenac sodium 75 mg tablet,delayed release RxNorm: 688414 1 Tablet(s) PO BID 10/21/192018 Inactive This refill negates all other refills of this medication hydrochlorothiazide 12.5 mg tablet RxNorm: 556034 1 Tablet(s) PO QAM 10/21/19 19 2018 Inactive metoprolol succinate ER 50 mg tablet,extended release 24 hr RxNorm: 156959 1 Tablet(s) PO daily 10/21/192018 Inactive This refill negates all other refills of this medication levothyroxine 50 mcg tablet RxNorm: 577032 1 Tablet(s) PO daily 10/21/19 19 2018 Inactive This refill negates all other refills of this medication cetirizine 10 mg tablet RxNorm: 5382524 1 Tablet(s) PO daily 10/21/19 19 2018 Inactive This refill negates all other refills of this medication. Please do not auto refill Flintstones Complete (iron) 18 mg iron chewable tablet RxNorm: 1 Tablet(s) PO daily 10/21/19 19 2018 Inactive This refill negates all other refills of this medication buspirone 7.5 mg tablet RxNorm: 591778 1 Tablet(s) PO BID 10/12/19 19 2018 Inactive cetirizine 10 mg tablet RxNorm: 7604639 1 Tablet(s) PO daily 09/28/20 18 2018 Inactive Guaiasorb DM 10 mg-100 mg/5 mL oral liquid RxNorm: 443346 10 Milliliter(s) PO As needed every 4 hr 09/24/20 18 2018 Inactive Vicks Vaporub 4.7 %-1.2 %-2.6 % topical ointment RxNorm: 4745688 1 Application TOP TID 09/24/20 18 2018 Inactive levmetamfetamine 50 mg nasal inhaler RxNorm: 1 Unit(s) NASAL Q3-4H 09/24/20 18 2017 Inactive sertraline 50 mg tablet RxNorm: 391033 1 Tablet(s) PO daily 09/09/20 18 2018 Inactive Please note dose trazodone 50 mg tablet RxNorm: 574204 1 Tablet(s) PO QHS 09/06/20 18 2018 Inactive sertraline 50 mg tablet RxNorm: 236747 1 Tablet(s) PO daily 09/06/20 18 2017 Inactive amoxicillin 500 mg tablet RxNorm: 504186 1 Tablet(s) PO Q12H 08/31/20 18 2017 Inactive albuterol sulfate 2.5 mg/3 mL (0.083 %) solution for nebulization RxNorm: 573839 1 Vial INH QID 08/10/20 18 2018 Inactive 60/box. Please do not fill early. Please do not auto refill. Prozac 10 mg capsule RxNorm: 230774 1 Capsule(s) PO daily 08/09/20 18 2017 Inactive buspirone 7.5 mg tablet RxNorm: 686191 1 Tablet(s) PO BID 08/09/20 18 2018 Inactive gabapentin 300 mg capsule RxNorm: 206364 1 Capsule(s) PO TID as needed 08/01/20 18 2018 Inactive hydrochlorothiazide 12.5 mg tablet RxNorm: 373095 1 Tablet(s) PO QAM 08/01/20 18 2018 Inactive ranitidine 150 mg tablet RxNorm: 972218 1 Tablet(s) PO BID 08/01/20 18 2018 Inactive Macrobid 100 mg capsule RxNorm: 716996 1 Capsule(s) PO Q12H 06/21/20 18 2017 Inactive Singulair 10 mg tablet RxNorm: 483483 1 Tablet(s) PO daily 06/14/20 18 2018 Inactive Ventolin HFA 90 mcg/actuation aerosol inhaler RxNorm: 5084589 2 Puff(s) INH QID 06/14/20 18 2018 Inactive Singulair 10 mg tablet RxNorm: 126697 1 Tablet(s) PO daily 06/14/20 18 2017 Inactive buspirone 7.5 mg tablet RxNorm: 651916 1 Tablet(s) PO BID 06/14/20 18 2017 Inactive Prozac 10 mg capsule RxNorm: 442180 1 Capsule(s) PO daily 06/14/20 18 2017 Inactive Neilmed Pediatric Sinus Rinse Refill packet RxNorm: 1 Unit Dose NASAL PRN 05/31/20 18 2021 Inactive diclofenac sodium 75 mg tablet,delayed release RxNorm: 736633 1 Tablet(s) PO BID 05/31/20 18 2017 Inactive lisinopril 2.5 mg tablet RxNorm: 788623 1 Tablet(s) PO daily 05/31/20 18 2017 Inactive metoprolol succinate ER 50 mg tablet,extended release 24 hr RxNorm: 034798 1 Tablet(s) PO daily 05/31/20 18 2017 Inactive levothyroxine 50 mcg tablet RxNorm: 782229 1 Tablet(s) PO daily 05/31/20 18 2017 Inactive TRUEplus Lancets 30 gauge RxNorm: 1 Lancets Miscellaneous QAM 05/31/20 18 2017 Inactive 100/box Ventolin HFA 90 mcg/actuation aerosol inhaler RxNorm: 073109 2 Puff(s) INH QID 05/31/20 18 2017 Inactive Aleve 220 mg capsule RxNorm: 9091579 1 Capsule(s) PO BID 05/31/20 18 2018 Inactive ranitidine 150 mg tablet RxNorm: 193604 1 Tablet(s) PO BID 05/31/20 18 2017 Inactive gabapentin 300 mg capsule RxNorm: 978760 1 Capsule(s) PO TID as needed 05/31/20 18 2017 Inactive atorvastatin 20 mg tablet RxNorm: 653193 1 Tablet(s) PO QHS 05/31/20 18 2017 Inactive True Metrix Glucose Test Strip RxNorm: 1 [facility] Strips [facility] 05/31/20 18 2017 Inactive 50/container Calcium 600-D3 Plus 600 mg calcium-800 unit-50 mg tablet RxNorm: 1 Tablet(s) PO daily take an additonal tablet for itching. 05/31/20 18 2017 Inactive hydrochlorothiazide 12.5 mg tablet RxNorm: 523466 1 Tablet(s) PO QAM 05/31/20 18 2017 Inactive Flintstones Complete (iron) 18 mg iron chewable tablet RxNorm: 1 Tablet(s) PO daily 05/31/20 18 2017 Inactive d-mannose oral powder RxNorm: PO 18 2021 Inactive True Metrix Glucose Meter RxNorm: miscellaneous 08/17/20 19 2018 Inactive sertraline 50 mg tablet RxNorm: 313659 1 Tablet(s) PO daily 11/28/19 20 2019 Inactive loperamide 2 mg tablet RxNorm: 247260 oral 09/29/202018 Inactive Symbicort 160 mcg-4.5 mcg/actuation HFA aerosol inhaler RxNorm: 1035369 2 Puff(s) INH BID 08/17/202018 Inactive Medication Administered No Medication Administered data Procedures Procedure Codes Date Tobacco Assessment/Screening CPT-4: TCA Fall Risk Assessment SNOMED CT: 36855656 4 CPT-4: DFRA 01/01/2020 Functional Assessment CPT-4: DFA 01/01/2020 [place] Assessment CPT-4: DSWA 11/04 Patient Health Questionnaire CPT-4: DPHQ [place] Assessment CPT-4: DSWA 10/03 Hypertension CPT-4: HTN 10/17/2019 Fall Risk Assessment SNOMED CT: 17143121 4 CPT-4: DFRA 09/19/2019 Functional Assessment CPT-4: DFA 09/19/2019 Urinalysis, dip stick CPT-4: 19191 06/21/2019 Tobacco Assessment/Screening CPT-4: TCA Patient Health Questionnaire CPT-4: DPHQ AHA/REBECCA Classification Assessment CPT-4: DAHA 04/25/2019 Controlled Substance Report CPT-4: CTRSU 04/03 Urinalysis, dip stick CPT-4: 00773 03/28/2019 Urinalysis, dip stick CPT-4: 99763 03/28/2019 [id number] CPT-4: 26738 Unknown [id number] CPT-4: 20914 Unknown Gynecology Referral SNOMED CT: 167320788 CPT-4: R14 Unknown Reason For Visit No Reason For Visit data Plan of Care Planned Activity Notes Codes Status Date Referral: Pending Gynecology Referral Information Referral Processed Referral: Pending Pulmonolog y Referral Information Referral Processed Referral: Pending Psychiatry Referral Information Referral Initiated Referral: Pending Respirator y Services Referral Information Referral Initiated Referral: Pending Ophthalmol ogy Referral Information Referral Initiated Referral: [facility] WPtel: [address] [id number] [place] [employer] Member placed a call out to the patient to notify her that it has been recommended that she be seen by 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 Patient agreed to be seen, does not have a provider of choice and no transportation issues. Tribal Council Member faxed referral and clinical notes to [facility] in [place], [place] near the patient's home. Patient to [...] seen and prefers a provider in the [place] or [place] area. Tribal Council Member placed a call out to everyone listed in the area and the only location that was able to accept the patient's insurance was [address] [address] and spoke with Maylin. Maylin asked that the patient's referral, face sheet and visit notes be faxed to . Tribal Council Member faxed over requested documents. Patient appointment confirmation letter generated and mailed to her home address. Patient to call to schedule an appointment. Processed Referral: [facility] [address]el: [id number] Patient notified that it has been advised that she be seen by Neurology. Patient agreed to be seen and prefers to be seen by a provider in the [place], [place] area. Patient denies any concerns with transportation, and prefers to schedule her own appointment. Tribal Council Member placed a call out to [facility] [...]
--- OUTSIDE RECORDS SUMMARY | 2023-12-07 02:11 | XMS_ITS | CCD ---
Author Name Leena Culver NP Address [address] [place] [address] [address] [place] [address] Phone Organization [facility] Phone Care Team Providers Care Hearing Aid Fitter Name Role Phone Anna Culver NP Primary Care Provider Unav ailable Unavailable Chronic Care Management Unavaila ble Summary Purpose DataExchange Insurance Providers Payer name Policy type / Coverage type Covered democrat ID Effective Begin Date Effective End Date SUKI MAYO [id number] Unknown Unknown Family history Mother Diagnosis Age [...] Unknown Disability 05/31/[address]: 406402498 Has never s moked or chewed tobacco 05/31/[address]: 447180134 Never drinks alco hol 05/31/2018 Has the [...] ICD-10: Z68. 43 ICD-9: V85.43 05/30/2018 Active Essential (primary) hypertension ICD-10: I10 ICD-9: 401.9 10/03/2018 Active Abrasion of toe ICD-10: S90.416A ICD-9: 917.0 02/14/2020 Active Encounter for screening for malignant neoplasm of cervix ICD-10: Z12.4 ICD-9: V76.2 04/25/2019 Active Obstructive sleep apnea (chio lt) (pediatric) ICD-10: G47.33 ICD-9: 327.23 06/21/2019 Active Type 2 diabetes mellitus wit h peripheral neuropathy ICD-10: E11.42 ICD-9: 250.60 11/28/2019 Active Encounter for screening for tobacco use ICD-10: Z01.89 ICD-9: V72.85 01/01/2020 Active [place] eye ICD-10: H10.029 ICD-9: 372.03 12/29/2019 Active [...] ICD-10: UXZ.01 ICD-9: XZ0.1 04/27/2019 Active 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 ICD-10: Z79.899 ICD-9: [...] Headache ICD-10: R51 ICD-9: 784.0 10/03/2018 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 anti-inflammatories (NSAID) ICD-10: Z79.1 ICD-9: V58.64 06/13/2018 Active Medications Medication Codes Instructions Start Date Stop Date Status Fill Instructions Sudafed 12 Hour 120 mg tablet,extended release RxNorm: 8183477 TAKE 1 TABLET BY MOUTH EVERY 12 HOURS NEEDED 03/14/20 20 2019 Inactive True Metrix Glucose Test Strip RxNorm: 1 Test Strips Miscellaneous every morning 03/13/20 20 2019 Inactive 100/container loperamide 2 mg tablet RxNorm: 903670 1 Tablet(s) Oral as needed take one tablet after each loose stool, maximum of 8 tablets in 24 hours 02/22/20 20 2019 Inactive True Metrix Glucose Test Strip RxNorm: 1 Test Strips Miscellaneous QAM 02/22/20 20 2019 Inactive 100/container cetirizine 10 mg tablet RxNorm: 3905046 1 Tablet(s) PO daily 01/17/20 20 2019 Inactive levothyroxine 50 mcg tablet RxNorm: 170836 1 Tablet(s) PO daily 01/17/20 20 2020 Inactive gabapentin 300 mg capsule RxNorm: 538937 1 Capsule(s) PO TID 01/17/20 20 2019 Inactive loperamide 2 mg tablet RxNorm: 987186 1 Tablet(s) Oral as needed take one tablet after each loose stool, maximum of 8 tablets in 24 hours 01/17/20 20 2019 Inactive quetiapine 100 mg tablet RxNorm: 594998 1 Tablet(s) Oral every night at bedtime 01/17/20 20 2019 Inactive lisinopril 2.5 mg tablet RxNorm: 164796 1 Tablet(s) PO daily 01/15/20 20 2020 Inactive Singulair 10 mg tablet RxNorm: 626732 1 Tablet(s) PO daily 01/15/20 20 2020 Inactive levothyroxine 50 mcg tablet RxNorm: 135721 1 Tablet(s) PO daily 01/15/20 20 2019 Inactive gabapentin 300 mg capsule RxNorm: 962005 1 Capsule(s) PO TID 01/15/20 20 2019 Inactive cetirizine 10 mg tablet RxNorm: 0512404 1 Tablet(s) PO daily 01/15/20 20 2019 Inactive gentamicin 0.3 % eye drops RxNorm: 721662 1 Drop(s) ophthalmic (eye) four times a day 12/29/19 20 2019 Inactive gentamicin 0.3 % eye drops RxNorm: 265062 1 Drop(s) ophthalmic (eye) four times a day 12/29/19 20 2019 Inactive gentamicin 0.3 % eye drops RxNorm: 021531 1 Drop(s) ophthalmic (eye) four times a day 12/29/19 20 2019 Inactive hydrochlorothiazide 25 mg tablet RxNorm: 474208 1 Tablet(s) Oral every day 12/21/19 20 2019 Inactive Sudafed 12 Hour 120 mg tablet,extended release RxNorm: 1803726 TAKE (1) TABLET BY MOUTH EVERY 12 HOURS NEEDED 12/21/19 20 2019 Inactive loperamide 2 mg tablet RxNorm: 901593 1 Tablet(s) Oral as needed take one tablet after each loose stool, maximum of 8 tablets in 24 hours 12/11/19 20 2019 Inactive loperamide 2 mg tablet RxNorm: 055401 1 Tablet(s) Oral as needed take one tablet after each loose stool, maximum of 8 tablets in 24 hours 12/11/19 20 2019 Inactive atorvastatin 40 mg tablet RxNorm: 862395 1 Tablet(s) Oral every day 11/29/19 20 2020 Inactive sertraline 100 mg tablet RxNorm: 660346 1 Tablet(s) Oral 11/28/19 20 2019 Inactive quetiapine 100 mg tablet RxNorm: 623744 1 Tablet(s) Oral every night at bedtime 11/28/19 20 2019 Inactive omeprazole 20 mg capsule,delayed release RxNorm: 940872 1 Capsule(s) Oral every day 11/20/19 20 2019 Inactive amoxicillin 250 mg capsule RxNorm: 946698 1 Capsule(s) Oral three times a day 11/07/19 20 2019 Inactive multivitamin with iron-mineral tablet RxNorm: 1 Tablet(s) Oral every day 10/29/19 20 2021 Inactive cetirizine 10 mg tablet RxNorm: 7873886 1 Tablet(s) PO daily 10/20/19 20 2019 Inactive This refill negates all other refills of this medication. Please do not auto refill Singulair 10 mg tablet RxNorm: 760344 1 Tablet(s) PO daily 10/20/19 20 2019 Inactive This refill negates all other refills of this medication gabapentin 300 mg capsule RxNorm: 180342 1 Capsule(s) PO TID 10/20/19 20 2019 Inactive lisinopril 2.5 mg tablet RxNorm: 050909 1 Tablet(s) PO daily 10/20/19 20 2019 Inactive levothyroxine 50 mcg tablet RxNorm: 678845 1 Tablet(s) PO daily 10/20/192019 Inactive This refill negates all other refills of this medication fenugreek seed extract 500 mg capsule RxNorm: 1 Capsule(s) Oral three times a day 10/17/19 20 2021 Inactive hydrochlorothiazide 25 mg tablet RxNorm: 306740 1 Tablet(s) Oral every day 10/17/192019 Inactive Alcohol Prep Pads RxNorm: 649616 1 Patch TOP QAM 10/16/19 20 2020 Inactive loperamide 2 mg tablet RxNorm: 039373 1 Tablet(s) Oral as needed take one [...] 2019 Inactive hydrochlorothiazide 25 mg tablet RxNorm: 028865 1 Tablet(s) Oral every day 09/19/202019 Inactive Sudafed 12 Hour 120 mg tablet,extended release RxNorm: 9248426 1 Tablet(s) Oral every 12 hours as needed 09/11/20 19 2018 Inactive omeprazole 20 mg capsule,delayed release RxNorm: 154766 1 Capsule(s) Oral every day 09/07/20 19 2019 Inactive Sudafed 12 Hour 120 mg tablet,extended release RxNorm: 6224621 1 Tablet(s) Oral every 12 hours as needed 09/04/20 19 2018 Inactive pantoprazole 40 mg tablet,delayed release RxNorm: 542112 1 Tablet(s) Oral every day 08/24/20 19 2018 Inactive discontinue any other H2Blkr. and PPI albuterol sulfate 2.5 mg/3 mL (0.083 %) solution for nebulization RxNorm: 204221 1 Vial Inhalation every four hours as needed as needed for dyspnea 08/17/20 19 2019 Inactive 60/box. This refill negates all other refills of this medication. Please do not fill early. Please do not auto refill. Symbicort 160 mcg-4.5 mcg/actuation HFA aerosol inhaler RxNorm: 0824432 2 Puff(s) INH BID 08/17/20 19 No Stop Date Active Alcohol Prep Pads RxNorm: 027563 1 Patch TOP QAM 08/17/20 19 2019 Inactive Ventolin HFA 90 mcg/actuation aerosol inhaler RxNorm: 733526 2 Puff(s) INH QID 08/09/20 19 2019 Inactive Please do not fill early. Please do not auto refill. This refill negates all other refills of this medication True Metrix Glucose Test Strip RxNorm: 1 Test Strips Miscellaneous QAM 08/09/20 19 2019 Inactive 100/container atorvastatin 40 mg tablet RxNorm: 924427 1 Tablet(s) Oral every day 07/04/20 19 2019 Inactive levmetamfetamine 50 mg nasal inhaler RxNorm: 1 Unit(s) NASAL Q3-4H Do not use more than every 3 hours or 8 times/24hours 06/26/20 19 2021 Inactive Please do not auto refill. This refill negates all other refills of this medication diclofenac sodium 75 mg tablet,delayed release RxNorm: 601784 1 Tablet(s) PO BID 06/26/20 19 2019 Inactive This refill negates all other refills of this medication buspirone 7.5 mg tablet RxNorm: 701823 1 Tablet(s) PO BID 06/26/20 19 2020 Inactive This refill negates all other refills of this medication hydrochlorothiazide 12.5 mg tablet RxNorm: 572644 1 Tablet(s) PO QAM 06/26/20 19 2019 Inactive Ventolin HFA 90 mcg/actuation aerosol inhaler RxNorm: 030389 2 Puff(s) INH QID 06/26/20 19 2018 Inactive Please do not fill early. Please do not auto refill. This refill negates all other refills of this medication Singulair 10 mg tablet RxNorm: 962059 1 Tablet(s) PO daily 06/26/20 19 2019 Inactive This refill negates all other refills of this medication cetirizine 10 mg tablet RxNorm: 2517472 1 Tablet(s) PO daily 06/26/20 19 2019 Inactive This refill negates all other refills of this medication. Please do not auto refill levothyroxine 50 mcg tablet RxNorm: 769299 1 Tablet(s) PO daily 06/26/20 19 2019 Inactive This refill negates all other refills of this medication ranitidine 150 mg tablet RxNorm: 334306 1 Tablet(s) PO BID 06/26/20 19 2018 Inactive This refill negates all other refills of this medication Calcium 600-D3 Plus (mag-zinc) 600 mg calcium-800 unit-50 mg tablet RxNorm: 1 Tablet(s) PO daily take an additonal tablet for itching. 06/26/20 19 2018 Inactive This refill negates all other refills of this medication albuterol sulfate 2.5 mg/3 mL (0.083 %) solution for nebulization RxNorm: 847420 1 Vial INH QID 06/26/20 19 2018 Inactive 60/box. This refill negates all other refills of this medication. Please do not fill early. Please do not auto refill. lisinopril 2.5 mg tablet RxNorm: 604443 1 Tablet(s) PO daily 06/21/20 19 2019 Inactive gabapentin 300 mg capsule RxNorm: 505670 1 Capsule(s) PO TID 06/21/20 19 2019 Inactive atorvastatin 20 mg tablet RxNorm: 823119 1 Tablet(s) PO QHS 06/07/202018 Inactive This refill negates all other refills of this medication TRUEplus Lancets 30 gauge RxNorm: 1 Lancets Miscellaneous QAM 05/29/20 19 2018 Inactive 100/box gabapentin 300 mg capsule RxNorm: 296051 1 Capsule(s) PO TID 05/03/20 19 2018 Inactive Flintstones Complete (iron) 18 mg iron chewable tablet RxNorm: 1 Tablet(s) PO daily 04/04/202021 Inactive This refill negates all other refills of this medication gabapentin 300 mg capsule RxNorm: 761835 1 Capsule(s) PO TID as needed 02/01/20 19 2018 Inactive True Metrix Glucose Test Strip RxNorm: 1 Test Strips Miscellaneous QA 02/01/20 19 2018 Inactive 100/container Alcohol Prep Pads RxNorm: 211092 1 Patch TOP QA 02/01/20 19 2018 Inactive TRUEplus Lancets 30 gauge RxNorm: 1 Lancets Miscellaneous QA 02/01/20 19 2018 Inactive 100/box lisinopril 2.5 mg tablet RxNorm: 934665 1 Tablet(s) PO daily 12/28/19 19 2018 Inactive ranitidine 150 mg tablet RxNorm: 929746 1 Tablet(s) PO BID 10/21/192018 Inactive This refill negates all other refills of this medication albuterol sulfate 2.5 mg/3 mL (0.083 %) solution for nebulization RxNorm: 419968 1 Vial INH QID 10/21/192018 Inactive 60/box. [...] this medication gabapentin 300 mg capsule RxNorm: 225600 1 Capsule(s) PO TID as needed 10/21/192018 Inactive atorvastatin 20 mg tablet RxNorm: 370108 1 Tablet(s) PO QHS 10/21/192018 Inactive This refill negates all other refills of this medication trazodone 50 mg tablet RxNorm: 890093 1 Tablet(s) PO QHS 10/21/192018 Inactive This refill negates all other refills of this medication Ventolin HFA 90 mcg/actuation aerosol inhaler RxNorm: 032055 2 Puff(s) INH QID 10/21/192018 Inactive Please do not fill early. Please do not auto refill. This refill negates all other refills of this medication Calcium 600-D3 Plus 600 mg calcium-800 unit-50 mg tablet RxNorm: 1 Tablet(s) PO daily take an additonal tablet for itching. 10/21/192018 Inactive This refill negates all other refills of this medication Singulair 10 mg tablet RxNorm: 092363 1 Tablet(s) PO daily 10/21/192018 Inactive This refill negates all other refills of this medication buspirone 7.5 mg tablet RxNorm: 269964 1 Tablet(s) PO BID 10/21/192018 Inactive This refill negates all other refills of this medication diclofenac sodium 75 mg tablet,delayed release RxNorm: 787228 1 Tablet(s) PO BID 10/21/19 19 2018 Inactive This refill negates all other refills of this medication hydrochlorothiazide 12.5 mg tablet RxNorm: 757649 1 Tablet(s) PO QAM 10/21/192018 Inactive metoprolol succinate ER 50 mg tablet,extended release 24 hr RxNorm: 437738 1 Tablet(s) PO daily 10/21/19 19 2018 Inactive This refill negates all other refills of this medication levothyroxine 50 mcg tablet RxNorm: 534551 1 Tablet(s) PO daily 10/21/19 19 2018 Inactive This refill negates all other refills of this medication cetirizine 10 mg tablet RxNorm: 9572281 1 Tablet(s) PO daily 10/21/192018 Inactive This refill negates all other refills of this medication. Please do not auto refill Flintstones Complete (iron) 18 mg iron chewable tablet RxNorm: 1 Tablet(s) PO daily 10/21/192018 Inactive This refill negates all other refills of this medication buspirone 7.5 mg tablet RxNorm: 146110 1 Tablet(s) PO BID 10/12/192018 Inactive cetirizine 10 mg tablet RxNorm: 0200804 1 Tablet(s) PO daily 09/28/20 18 2018 Inactive Guaiasorb DM 10 mg-100 mg/5 mL oral liquid RxNorm: 712178 10 Milliliter(s) PO As needed every 4 hr 09/24/20 18 2018 Inactive Vicks Vaporub 4.7 %-1.2 %-2.6 % topical ointment RxNorm: 9041072 1 Application TOP TID 09/24/20 18 2018 Inactive levmetamfetamine 50 mg nasal inhaler RxNorm: 1 Unit(s) NASAL Q3-4H 09/24/20 18 2017 Inactive sertraline 50 mg tablet RxNorm: 542610 1 Tablet(s) PO daily 09/09/20 18 2018 Inactive Please note dose trazodone 50 mg tablet RxNorm: 505983 1 Tablet(s) PO QHS 09/06/20 18 2018 Inactive sertraline 50 mg tablet RxNorm: 302426 1 Tablet(s) PO daily 09/06/20 18 2017 Inactive amoxicillin 500 mg tablet RxNorm: 506864 1 Tablet(s) PO Q12H 08/31/20 18 2017 Inactive albuterol sulfate 2.5 mg/3 mL (0.083 %) solution for nebulization RxNorm: 525331 1 Vial INH QID 08/10/20 18 2018 Inactive 60/box. Please do not fill early. Please do not auto refill. Prozac 10 mg capsule RxNorm: 431212 1 Capsule(s) PO daily 08/09/20 18 2017 Inactive buspirone 7.5 mg tablet RxNorm: 017358 1 Tablet(s) PO BID 08/09/20 18 2018 Inactive gabapentin 300 mg capsule RxNorm: 071953 1 Capsule(s) PO TID as needed 08/01/20 18 2018 Inactive hydrochlorothiazide 12.5 mg tablet RxNorm: 713471 1 Tablet(s) PO QAM 08/01/20 18 2018 Inactive ranitidine 150 mg tablet RxNorm: 811089 1 Tablet(s) PO BID 08/01/20 18 2018 Inactive Macrobid 100 mg capsule RxNorm: 503901 1 Capsule(s) PO Q12H 06/21/20 18 2017 Inactive Singulair 10 mg tablet RxNorm: 916802 1 Tablet(s) PO daily 06/14/20 18 2018 Inactive Ventolin HFA 90 mcg/actuation aerosol inhaler RxNorm: 2698523 2 Puff(s) INH QID 06/14/20 18 2018 Inactive Singulair 10 mg tablet RxNorm: 421498 1 Tablet(s) PO daily 06/14/20 18 2017 Inactive buspirone 7.5 mg tablet RxNorm: 962561 1 Tablet(s) PO BID 06/14/20 18 2017 Inactive Prozac 10 mg capsule RxNorm: 581476 1 Capsule(s) PO daily 06/14/20 18 2017 Inactive Neilmed Pediatric Sinus Rinse Refill packet RxNorm: 1 Unit Dose NASAL PRN 05/31/20 18 2021 Inactive diclofenac sodium 75 mg tablet,delayed release RxNorm: 494802 1 Tablet(s) PO BID 05/31/20 18 2017 Inactive lisinopril 2.5 mg tablet RxNorm: 277751 1 Tablet(s) PO daily 05/31/20 18 2017 Inactive metoprolol succinate ER 50 mg tablet,extended release 24 hr RxNorm: 505558 1 Tablet(s) PO daily 05/31/20 18 2017 Inactive levothyroxine 50 mcg tablet RxNorm: 329493 1 Tablet(s) PO daily 05/31/20 18 2017 Inactive TRUEplus Lancets 30 gauge RxNorm: 1 Lancets Miscellaneous QAM 05/31/20 18 2017 Inactive 100/box Ventolin HFA 90 mcg/actuation aerosol inhaler RxNorm: 791765 2 Puff(s) INH QID 05/31/20 18 2017 Inactive Aleve 220 mg capsule RxNorm: 6495666 1 Capsule(s) PO BID 05/31/20 18 2018 Inactive ranitidine 150 mg tablet RxNorm: 563668 1 Tablet(s) PO BID 05/31/20 18 2017 Inactive gabapentin 300 mg capsule RxNorm: 327331 1 Capsule(s) PO TID as needed 05/31/20 18 2017 Inactive atorvastatin 20 mg tablet RxNorm: 146195 1 Tablet(s) PO QHS 05/31/20 18 2017 Inactive True Metrix Glucose Test Strip RxNorm: 1 Test Strips Miscellaneous QAM 05/31/20 18 2017 Inactive 50/container Calcium 600-D3 Plus 600 mg calcium-800 unit-50 mg tablet RxNorm: 1 Tablet(s) PO daily take an additonal tablet for itching. 05/31/20 18 2017 Inactive hydrochlorothiazide 12.5 mg tablet RxNorm: 580665 1 Tablet(s) PO QAM 05/31/20 18 2017 Inactive Flintstones Complete (iron) 18 mg iron chewable tablet RxNorm: 1 Tablet(s) PO daily 05/31/20 18 2017 Inactive d-mannose oral powder RxNorm: PO 18 2021 Inactive True Metrix Glucose Meter RxNorm: miscellaneous 08/17/202018 Inactive sertraline 50 mg tablet RxNorm: 747398 1 Tablet(s) PO daily 11/28/19 20 2019 Inactive loperamide 2 mg tablet RxNorm: 188029 oral 09/29/20 19 2018 Inactive Symbicort 160 mcg-4.5 mcg/actuation HFA aerosol inhaler RxNorm: 2269755 2 Puff(s) INH BID 08/17/202018 Inactive Medication Administered No Medication Administered data Results Observation Observation Code Item Item Code Result Date S ervice Location No Orders No Orders No Orders 0 04/14/2020 [facility] [address] [place] [address] Procedures Procedure Codes Date Tobacco Assessment/Screening CPT-4: TCA Fall Risk Assessment SNOMED CT: 08969268 4 CPT-4: DFRA 01/01/2020 Functional Assessment CPT-4: DFA 01/01/2020 [place] Assessment CPT-4: DSWA 11/04 Patient Health Questionnaire CPT-4: DPHQ [place] Assessment CPT-4: DSWA 10/03 Hypertension CPT-4: HTN 10/17/2019 Fall Risk Assessment SNOMED CT: 06520719 4 CPT-4: DFRA 09/19/2019 Functional Assessment CPT-4: DFA 09/19/2019 Urinalysis, dip stick CPT-4: 91973 06/21/2019 Tobacco Assessment/Screening CPT-4: TCA Patient Health Questionnaire CPT-4: DPHQ AHA/REBECCA Classification Assessment CPT-4: DAHA 04/25/2019 Controlled Substance Report CPT-4: CTRSU 04/03 Urinalysis, dip stick CPT-4: 88759 03/28/2019 Urinalysis, dip stick CPT-4: 91742 03/28/2019 [id number] CPT-4: 73662 Unknown [id number] CPT-4: 63789 Unknown Gynecology Referral SNOMED CT: 125605484 CPT-4: R14 Unknown Reason For Visit No Reason For Visit data Plan of Care Planned Activity Notes Codes Status Date Appointment: Anna Culver WPtel: [phone] 03/21/2020 Appointment: Anna Culver WPtel: [phone] 02/14/2020 Appointment: Anna Culver WPtel: [phone] [place] [address] [address] 01/24/2020 Appointment: Anna Culver WPtel: [address] [place] [address] [address] 01/01/2020 Appointment: Anna Culver WPtel: [phone] [place] [address] [address] 11/28/2019 Appointment: Anna Culver WPtel: [address] [place] [address] [address] 10/17/2019 Appointment: Anna Culver WPtel: [address] [place] [address] [address] 09/19/2019 Appointment: Sudha Hernadez WPtel: [address] [facility] [id number] [address]452 07/04/2019 Appointment: Sudha Hernadez WPtel: [address] [facility] [id number] [address]452 06/21/2019 Appointment: Charlene Oropeza WPtel: [address] [facility] [id number] E452 05/24/2019 Appointment: Mallory Delgado [address] 04/27/2019 Appointment: Charlene Oropeza WPtel: [address] [facility] [id number] E452 04/25/2019 Appointment: Rasta Palafox WPtel: [facility] b [id number] [address]452 03/28/2019 Appointment: Rasta Palafox WPtel: [address] [facility] b [id number] [address]452 02/14/2019 Appointment: Rasta Palafox WPtel: [facility] b [id number] [address]452 01/31/2019 Appointment: Rasta Palafox WPtel: [facility] b [id number] [address]420 12/27/2018 Referral: Pending Gynecology Referral Information Referral Processed Referral: Pending Pulmonolog y Referral Information Referral Processed Referral: Pending Psychiatry Referral Information Referral Initiated Referral: Pending Respirator y Services Referral Information Referral Initiated Referral: Pending Ophthalmology Referral Information Referral Initiated Referral: [facility] WPtel: [address] [place] [address] Wood Last Maker placed a call out to the patient to notify her that it has been recommended that she be seen by 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 Patient agreed to be seen, does not have a provider of choice and no transportation issues. Wood Last Maker faxed referral and clinical notes to [facility] in [place], [place] near the patient's home. Patient to [...] seen and prefers a provider in the [place] or [place] area. Wood Last Maker placed a call out to everyone listed in the area and the only location that was able to accept the patient's insurance was [facility] [place] [address] and spoke with Maylin. Maylin asked that the patient's referral, face sheet and visit notes be faxed to . Wood Last Maker faxed over requested documents. Patient appointment confirmation letter generated and mailed to her home address. Patient to call to schedule an appointment. Processed Referral: [facility] Neurolog y WPtel: [address] [facility] [address] [place], [place] [id number] Patient notified that it has been advised that she be seen by Neurology. Patient agreed to be seen and prefers to be seen by a provider in the [place], [place] area. Patient denies any concerns with transportation, and prefers to schedule her own appointment. Wood Last Maker placed a call out to [facility] and spoke with Neeraj P: who confirmed that their office is able to accept new patients and the patient's insurance. After confirming the providers fax number, literary writer faxed over the patient's referral, and [...]
--- OUTSIDE RECORDS SUMMARY | 2023-12-07 02:11 | XMS_ITS | CCD ---
Author Name Leena Culver NP Address [id number] [place] [address] [address] [place] [address] Phone Organization [facility] Phone Care Team Providers Care Rn Med Surg Name Role Phone Anna Culver NP Primary Care Provider Unav ailable Unavailable Chronic Care Management Unavaila ble Summary Purpose DataExchange Insurance Providers Payer name Policy type / Coverage type Covered constitution party ID Effective Begin Date Effective End Date SUKI MAYO [id number] Unknown Unknown Family history Mother Diagnosis Age [...] Unknown Disability 05/31/[address]: 772068297 Has never s moked or chewed tobacco 05/31/[address]: 489753010 Never drinks alco hol 05/31/2018 Has the [...] use ICD-10: Z01.89 ICD-9: V72.85 01/01/2020 Active [place] [facility] ICD-10: H10.029 ICD-9: 372.03 12/29/2019 Active [...] ICD-10: UXZ.01 ICD-9: XZ0.1 04/27/2019 Active 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 ICD-10: Z79.899 ICD-9: [...] Headache ICD-10: R51 ICD-9: 784.0 10/03/2018 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-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 anti-inflammatories (NSAID) ICD-10: Z79.1 ICD-9: V58.64 06/13/2018 Active Medications Medication Codes Instructions Start Date Stop Date Status Fill Instructions Sudafed 12 Hour 120 mg tablet,extended release RxNorm: 9191283 TAKE 1 TABLET BY MOUTH EVERY 12 HOURS NEEDED 03/14/20 20 2019 Inactive True Metrix Glucose Test Strip RxNorm: 1 Test Strips Miscellaneous every morning 03/13/20 20 2019 Inactive 100/container loperamide 2 mg tablet RxNorm: 187539 1 Tablet(s) Oral as needed take one tablet after each loose stool, maximum of 8 tablets in 24 hours 02/22/20 20 2019 Inactive True Metrix Glucose Test Strip RxNorm: 1 Test Strips Miscellaneous QAM 02/22/20 20 2019 Inactive 100/container cetirizine 10 mg tablet RxNorm: 0582957 1 Tablet(s) PO daily 01/17/20 20 2019 Inactive levothyroxine 50 mcg tablet RxNorm: 924748 1 Tablet(s) PO daily 01/17/20 20 2020 Inactive gabapentin 300 mg capsule RxNorm: 582365 1 Capsule(s) PO TID 01/17/20 20 2019 Inactive loperamide 2 mg tablet RxNorm: 610507 1 Tablet(s) Oral as needed take one tablet after each loose stool, maximum of 8 tablets in 24 hours 01/17/20 20 2019 Inactive quetiapine 100 mg tablet RxNorm: 713984 1 Tablet(s) Oral every night at bedtime 01/17/20 20 2019 Inactive lisinopril 2.5 mg tablet RxNorm: 778451 1 Tablet(s) PO daily 01/15/20 20 2020 Inactive Singulair 10 mg tablet RxNorm: 382135 1 Tablet(s) PO daily 01/15/20 20 2020 Inactive levothyroxine 50 mcg tablet RxNorm: 731708 1 Tablet(s) PO daily 01/15/20 20 2019 Inactive gabapentin 300 mg capsule RxNorm: 079000 1 Capsule(s) PO TID 01/15/20 20 2019 Inactive cetirizine 10 mg tablet RxNorm: 1966138 1 Tablet(s) PO daily 01/15/20 20 2019 Inactive gentamicin 0.3 % eye drops RxNorm: 973112 1 Drop(s) ophthalmic (eye) four times a day 12/29/19 20 2019 Inactive gentamicin 0.3 % eye drops RxNorm: 476842 1 Drop(s) ophthalmic (eye) four times a day 12/29/19 20 2019 Inactive gentamicin 0.3 % eye drops RxNorm: 641157 1 Drop(s) ophthalmic (eye) four times a day 12/29/19 20 2019 Inactive hydrochlorothiazide 25 mg tablet RxNorm: 736007 1 Tablet(s) Oral every day 12/21/19 20 2019 Inactive Sudafed 12 Hour 120 mg tablet,extended release RxNorm: 3650767 TAKE (1) TABLET BY MOUTH EVERY 12 HOURS NEEDED 12/21/19 20 2019 Inactive loperamide 2 mg tablet RxNorm: 551331 1 Tablet(s) Oral as needed take one tablet after each loose stool, maximum of 8 tablets in 24 hours 12/11/19 20 2019 Inactive loperamide 2 mg tablet RxNorm: 304159 1 Tablet(s) Oral as needed take one tablet after each loose stool, maximum of 8 tablets in 24 hours 12/11/19 20 2019 Inactive atorvastatin 40 mg tablet RxNorm: 411036 1 Tablet(s) Oral every day 11/29/19 20 2020 Inactive sertraline 100 mg tablet RxNorm: 453685 1 Tablet(s) Oral 11/28/19 20 2019 Inactive quetiapine 100 mg tablet RxNorm: 388071 1 Tablet(s) Oral every night at bedtime 11/28/19 20 2019 Inactive omeprazole 20 mg capsule,delayed release RxNorm: 683065 1 Capsule(s) Oral every day 11/20/19 20 2019 Inactive amoxicillin 250 mg capsule RxNorm: 936147 1 Capsule(s) Oral three times a day 11/07/19 20 2019 Inactive multivitamin with iron-mineral tablet RxNorm: 1 Tablet(s) Oral every day 10/29/19 20 2021 Inactive cetirizine 10 mg tablet RxNorm: 4624292 1 Tablet(s) PO daily 10/20/19 20 2019 Inactive This refill negates all other refills of this medication. Please do not auto refill Singulair 10 mg tablet RxNorm: 695718 1 Tablet(s) PO daily 10/20/19 20 2019 Inactive This refill negates all other refills of this medication gabapentin 300 mg capsule RxNorm: 635985 1 Capsule(s) PO TID 10/20/19 20 2019 Inactive lisinopril 2.5 mg tablet RxNorm: 563445 1 Tablet(s) PO daily 10/20/19 20 2019 Inactive levothyroxine 50 mcg tablet RxNorm: 738455 1 Tablet(s) PO daily 10/20/192019 Inactive This refill negates all other refills of this medication fenugreek seed extract 500 mg capsule RxNorm: 1 Capsule(s) Oral three times a day 10/17/19 20 2021 Inactive hydrochlorothiazide 25 mg tablet RxNorm: 229364 1 Tablet(s) Oral every day 10/17/192019 Inactive Alcohol Prep Pads RxNorm: 143983 1 Patch TOP QAM 10/16/19 20 2020 Inactive loperamide 2 mg tablet RxNorm: 027142 1 Tablet(s) Oral as needed take one [...] 2019 Inactive hydrochlorothiazide 25 mg tablet RxNorm: 235803 1 Tablet(s) Oral every day 09/19/202019 Inactive Sudafed 12 Hour 120 mg tablet,extended release RxNorm: 1054105 1 Tablet(s) Oral every 12 hours as needed 09/11/20 19 2018 Inactive omeprazole 20 mg capsule,delayed release RxNorm: 881653 1 Capsule(s) Oral every day 09/07/20 19 2019 Inactive Sudafed 12 Hour 120 mg tablet,extended release RxNorm: 7484118 1 Tablet(s) Oral every 12 hours as needed 09/04/20 19 2018 Inactive pantoprazole 40 mg tablet,delayed release RxNorm: 114648 1 Tablet(s) Oral every day 08/24/20 19 2018 Inactive discontinue any other H2Blkr. and PPI albuterol sulfate 2.5 mg/3 mL (0.083 %) solution for nebulization RxNorm: 804084 1 Vial Inhalation every four hours as needed as needed for dyspnea 08/17/20 19 2019 Inactive 60/box. This refill negates all other refills of this medication. Please do not fill early. Please do not auto refill. Symbicort 160 mcg-4.5 mcg/actuation HFA aerosol inhaler RxNorm: 8983267 2 Puff(s) INH BID 08/17/20 19 No Stop Date Active Alcohol Prep Pads RxNorm: 836087 1 Patch TOP QAM 08/17/20 19 2019 Inactive Ventolin HFA 90 mcg/actuation aerosol inhaler RxNorm: 252811 2 Puff(s) INH QID 08/09/20 19 2019 Inactive Please do not fill early. Please do not auto refill. This refill negates all other refills of this medication True Metrix Glucose Test Strip RxNorm: 1 Test Strips Miscellaneous QAM 08/09/20 19 2019 Inactive 100/container atorvastatin 40 mg tablet RxNorm: 313353 1 Tablet(s) Oral every day 07/04/20 19 2019 Inactive levmetamfetamine 50 mg nasal inhaler RxNorm: 1 Unit(s) NASAL Q3-4H Do not use more than every 3 hours or 8 times/24hours 06/26/20 19 2021 Inactive Please do not auto refill. This refill negates all other refills of this medication diclofenac sodium 75 mg tablet,delayed release RxNorm: 274450 1 Tablet(s) PO BID 06/26/20 19 2019 Inactive This refill negates all other refills of this medication buspirone 7.5 mg tablet RxNorm: 865430 1 Tablet(s) PO BID 06/26/20 19 2020 Inactive This refill negates all other refills of this medication hydrochlorothiazide 12.5 mg tablet RxNorm: 240422 1 Tablet(s) PO QAM 06/26/20 19 2019 Inactive Ventolin HFA 90 mcg/actuation aerosol inhaler RxNorm: 840184 2 Puff(s) INH QID 06/26/20 19 2018 Inactive Please do not fill early. Please do not auto refill. This refill negates all other refills of this medication Singulair 10 mg tablet RxNorm: 927540 1 Tablet(s) PO daily 06/26/20 19 2019 Inactive This refill negates all other refills of this medication cetirizine 10 mg tablet RxNorm: 7255171 1 Tablet(s) PO daily 06/26/20 19 2019 Inactive This refill negates all other refills of this medication. Please do not auto refill levothyroxine 50 mcg tablet RxNorm: 651092 1 Tablet(s) PO daily 06/26/20 19 2019 Inactive This refill negates all other refills of this medication ranitidine 150 mg tablet RxNorm: 340850 1 Tablet(s) PO BID 06/26/20 19 2018 Inactive This refill negates all other refills of this medication Calcium 600-D3 Plus (mag-zinc) 600 mg calcium-800 unit-50 mg tablet RxNorm: 1 Tablet(s) PO daily take an additonal tablet for itching. 06/26/20 19 2018 Inactive This refill negates all other refills of this medication albuterol sulfate 2.5 mg/3 mL (0.083 %) solution for nebulization RxNorm: 967685 1 Vial INH QID 06/26/20 19 2018 Inactive 60/box. This refill negates all other refills of this medication. Please do not fill early. Please do not auto refill. lisinopril 2.5 mg tablet RxNorm: 874542 1 Tablet(s) PO daily 06/21/20 19 2019 Inactive gabapentin 300 mg capsule RxNorm: 757510 1 Capsule(s) PO TID 06/21/20 19 2019 Inactive atorvastatin 20 mg tablet RxNorm: 327572 1 Tablet(s) PO QHS 06/07/202018 Inactive This refill negates all other refills of this medication TRUEplus Lancets 30 gauge RxNorm: 1 Lancets Miscellaneous QAM 05/29/20 19 2018 Inactive 100/box gabapentin 300 mg capsule RxNorm: 758867 1 Capsule(s) PO TID 05/03/20 19 2018 Inactive Flintstones Complete (iron) 18 mg iron chewable tablet RxNorm: 1 Tablet(s) PO daily 04/04/202021 Inactive This refill negates all other refills of this medication gabapentin 300 mg capsule RxNorm: 775963 1 Capsule(s) PO TID as needed 02/01/20 19 2018 Inactive True Metrix Glucose Test Strip RxNorm: 1 Test Strips Miscellaneous QA 02/01/20 19 2018 Inactive 100/container Alcohol Prep Pads RxNorm: 041020 1 Patch TOP QA 02/01/20 19 2018 Inactive TRUEplus Lancets 30 gauge RxNorm: 1 Lancets Miscellaneous QA 02/01/20 19 2018 Inactive 100/box lisinopril 2.5 mg tablet RxNorm: 957600 1 Tablet(s) PO daily 12/28/19 19 2018 Inactive ranitidine 150 mg tablet RxNorm: 610558 1 Tablet(s) PO BID 10/21/192018 Inactive This refill negates all other refills of this medication albuterol sulfate 2.5 mg/3 mL (0.083 %) solution for nebulization RxNorm: 283977 1 Vial INH QID 10/21/192018 Inactive 60/box. [...] this medication gabapentin 300 mg capsule RxNorm: 195510 1 Capsule(s) PO TID as needed 10/21/192018 Inactive atorvastatin 20 mg tablet RxNorm: 113686 1 Tablet(s) PO QHS 10/21/192018 Inactive This refill negates all other refills of this medication trazodone 50 mg tablet RxNorm: 133520 1 Tablet(s) PO QHS 10/21/192018 Inactive This refill negates all other refills of this medication Ventolin HFA 90 mcg/actuation aerosol inhaler RxNorm: 777725 2 Puff(s) INH QID 10/21/192018 Inactive Please do not fill early. Please do not auto refill. This refill negates all other refills of this medication Calcium 600-D3 Plus 600 mg calcium-800 unit-50 mg tablet RxNorm: 1 Tablet(s) PO daily take an additonal tablet for itching. 10/21/192018 Inactive This refill negates all other refills of this medication Singulair 10 mg tablet RxNorm: 807977 1 Tablet(s) PO daily 10/21/192018 Inactive This refill negates all other refills of this medication buspirone 7.5 mg tablet RxNorm: 587058 1 Tablet(s) PO BID 10/21/192018 Inactive This refill negates all other refills of this medication diclofenac sodium 75 mg tablet,delayed release RxNorm: 703805 1 Tablet(s) PO BID 10/21/19 19 2018 Inactive This refill negates all other refills of this medication hydrochlorothiazide 12.5 mg tablet RxNorm: 772861 1 Tablet(s) PO QAM 10/21/192018 Inactive metoprolol succinate ER 50 mg tablet,extended release 24 hr RxNorm: 677408 1 Tablet(s) PO daily 10/21/19 19 2018 Inactive This refill negates all other refills of this medication levothyroxine 50 mcg tablet RxNorm: 328957 1 Tablet(s) PO daily 10/21/19 19 2018 Inactive This refill negates all other refills of this medication cetirizine 10 mg tablet RxNorm: 0299247 1 Tablet(s) PO daily 10/21/192018 Inactive This refill negates all other refills of this medication. Please do not auto refill Flintstones Complete (iron) 18 mg iron chewable tablet RxNorm: 1 Tablet(s) PO daily 10/21/192018 Inactive This refill negates all other refills of this medication buspirone 7.5 mg tablet RxNorm: 073275 1 Tablet(s) PO BID 10/12/192018 Inactive cetirizine 10 mg tablet RxNorm: 4193242 1 Tablet(s) PO daily 09/28/20 18 2018 Inactive Guaiasorb DM 10 mg-100 mg/5 mL oral liquid RxNorm: 853331 10 Milliliter(s) PO As needed every 4 hr 09/24/20 18 2018 Inactive Vicks Vaporub 4.7 %-1.2 %-2.6 % topical ointment RxNorm: 9090141 1 Application TOP TID 09/24/20 18 2018 Inactive levmetamfetamine 50 mg nasal inhaler RxNorm: 1 Unit(s) NASAL Q3-4H 09/24/20 18 2017 Inactive sertraline 50 mg tablet RxNorm: 413068 1 Tablet(s) PO daily 09/09/20 18 2018 Inactive Please note dose trazodone 50 mg tablet RxNorm: 711535 1 Tablet(s) PO QHS 09/06/20 18 2018 Inactive sertraline 50 mg tablet RxNorm: 255272 1 Tablet(s) PO daily 09/06/20 18 2017 Inactive amoxicillin 500 mg tablet RxNorm: 851910 1 Tablet(s) PO Q12H 08/31/20 18 2017 Inactive albuterol sulfate 2.5 mg/3 mL (0.083 %) solution for nebulization RxNorm: 787250 1 Vial INH QID 08/10/20 18 2018 Inactive 60/box. Please do not fill early. Please do not auto refill. Prozac 10 mg capsule RxNorm: 679023 1 Capsule(s) PO daily 08/09/20 18 2017 Inactive buspirone 7.5 mg tablet RxNorm: 830453 1 Tablet(s) PO BID 08/09/20 18 2018 Inactive gabapentin 300 mg capsule RxNorm: 162087 1 Capsule(s) PO TID as needed 08/01/20 18 2018 Inactive hydrochlorothiazide 12.5 mg tablet RxNorm: 539091 1 Tablet(s) PO QAM 08/01/20 18 2018 Inactive ranitidine 150 mg tablet RxNorm: 955993 1 Tablet(s) PO BID 08/01/20 18 2018 Inactive Macrobid 100 mg capsule RxNorm: 835466 1 Capsule(s) PO Q12H 06/21/20 18 2017 Inactive Singulair 10 mg tablet RxNorm: 484126 1 Tablet(s) PO daily 06/14/20 18 2018 Inactive Ventolin HFA 90 mcg/actuation aerosol inhaler RxNorm: 1758944 2 Puff(s) INH QID 06/14/20 18 2018 Inactive Singulair 10 mg tablet RxNorm: 327442 1 Tablet(s) PO daily 06/14/20 18 2017 Inactive buspirone 7.5 mg tablet RxNorm: 061042 1 Tablet(s) PO BID 06/14/20 18 2017 Inactive Prozac 10 mg capsule RxNorm: 970023 1 Capsule(s) PO daily 06/14/20 18 2017 Inactive Neilmed Pediatric Sinus Rinse Refill packet RxNorm: 1 Unit Dose NASAL PRN 05/31/20 18 2021 Inactive diclofenac sodium 75 mg tablet,delayed release RxNorm: 222406 1 Tablet(s) PO BID 05/31/20 18 2017 Inactive lisinopril 2.5 mg tablet RxNorm: 246250 1 Tablet(s) PO daily 05/31/20 18 2017 Inactive metoprolol succinate ER 50 mg tablet,extended release 24 hr RxNorm: 386808 1 Tablet(s) PO daily 05/31/20 18 2017 Inactive levothyroxine 50 mcg tablet RxNorm: 848143 1 Tablet(s) PO daily 05/31/20 18 2017 Inactive TRUEplus Lancets 30 gauge RxNorm: 1 Lancets Miscellaneous QAM 05/31/20 18 2017 Inactive 100/box Ventolin HFA 90 mcg/actuation aerosol inhaler RxNorm: 978501 2 Puff(s) INH QID 05/31/20 18 2017 Inactive Aleve 220 mg capsule RxNorm: 9222705 1 Capsule(s) PO BID 05/31/20 18 2018 Inactive ranitidine 150 mg tablet RxNorm: 544049 1 Tablet(s) PO BID 05/31/20 18 2017 Inactive gabapentin 300 mg capsule RxNorm: 147837 1 Capsule(s) PO TID as needed 05/31/20 18 2017 Inactive atorvastatin 20 mg tablet RxNorm: 501897 1 Tablet(s) PO QHS 05/31/20 18 2017 Inactive True Metrix Glucose Test Strip RxNorm: 1 Test Strips Miscellaneous QAM 05/31/20 18 2017 Inactive 50/container Calcium 600-D3 Plus 600 mg calcium-800 unit-50 mg tablet RxNorm: 1 Tablet(s) PO daily take an additonal tablet for itching. 05/31/20 18 2017 Inactive hydrochlorothiazide 12.5 mg tablet RxNorm: 754475 1 Tablet(s) PO QAM 05/31/20 18 2017 Inactive Flintstones Complete (iron) 18 mg iron chewable tablet RxNorm: 1 Tablet(s) PO daily 05/31/20 18 2017 Inactive d-mannose oral powder RxNorm: PO 2021 Inactive True Metrix Glucose Meter RxNorm: miscellaneous 08/17/202018 Inactive sertraline 50 mg tablet RxNorm: 429915 1 Tablet(s) PO daily 11/28/19 20 2019 Inactive loperamide 2 mg tablet RxNorm: 244788 oral 09/29/20 19 2018 Inactive Symbicort 160 mcg-4.5 mcg/actuation HFA aerosol inhaler RxNorm: 6622430 2 Puff(s) INH BID 08/17/202018 Inactive Medication Administered No Medication Administered data Procedures Procedure Codes Date Tobacco Assessment/Screening CPT-4: TCA Fall Risk Assessment SNOMED CT: 11932347 4 CPT-4: DFRA 01/01/2020 Functional Assessment CPT-4: DFA 01/01/2020 [place]any Assessment CPT-4: DSWA 11/04 Patient Health Questionnaire CPT-4: DPHQ [place] Assessment CPT-4: DSWA 10/03 Hypertension CPT-4: HTN 10/17/2019 Fall Risk Assessment SNOMED CT: 25111638 4 CPT-4: DFRA 09/19/2019 Functional Assessment CPT-4: DFA 09/19/2019 Urinalysis, dip stick CPT-4: 92411 06/21/2019 Tobacco Assessment/Screening CPT-4: TCA Patient Health Questionnaire CPT-4: DPHQ AHA/REBECCA Classification Assessment CPT-4: DAHA 04/25/2019 Controlled Substance Report CPT-4: CTRSU 04/03 Urinalysis, dip stick CPT-4: 92174 03/28/2019 Urinalysis, dip stick CPT-4: 86639 03/28/2019 [id number] CPT-4: 41463 Unknown [id number] CPT-4: 29464 Unknown Gynecology Referral SNOMED CT: 663728785 CPT-4: R14 Unknown Vital Signs Date Vital 03/21/2020 Blood Pressure 1: 139/87 Code: 8480-6 BMI: 53.9 Code: 67414-5 Heart Rate 1: 86 bpm Height: 4'11 Code: 8302-2 SpO2: % Weight: 267 lbs Code: 81800-5 Reason For Visit Reason For Visit Effective Dates Notes hypertension 03/21/2020 diabetes mellitus 03/21/2020 Interim health update 03/21/2020 Encounters Encounter Performer Location Location Address Codes Magdi e ([id number]) (EST PT) EXPANDED PROBLEM FOCUSED TELEHEALTH VISIT Diagnosis: Essential (primary) hypertension[ICD1 0: I10] Diagnosis: Adult BMI 50.0-59.9 kg/sq m[ICD10: Z68.43] Anna Culver [place] [facility] [id number] [place] [address] [place] [address] CPT-4: 00594 03/21/2020 Plan of Care Planned Activity Notes Codes Status Date Visit Plan: E11.42-250.60 Type 2 diabetes mellitus with peripheral neuropathy testing daily, at varied times range 76-153, elevated BS was in the evening, isolated incident usually stays under 134 patient reports need to send BS results to [place] for review 10/17/2019 Hemoglobin A1C 6.0 07/04/2019 [...] anxiety and depressed mood routine follow up [facility] E03.9-244.9 Hypothyroidism, unspecified cont levothyroxine N39.46-788.33 Mixed [...] telephonic visit today. Specific topics reviewed were: Proper handwashing technique [...] verbalized understanding of all above topics. 03/21/2020 Patient Education: Patient Medication Summary Completed 03/21/2020 Patient Education: Hypertension Completed 03/21/2020 Patient Education: Diabetes Complete d 03/21/2020 Patient Education: Obesity Completed 03/21/2020 Appointment: Anna Culver WPtel: [address] [place] [address] E452 02/14/2020 Appointment: Anna Culver WPtel: [id number] [place] [address] E452 01/24/2020 Appointment: Anna Culver WPtel: [address] [place] [address] E452 01/01/2020 Appointment: Anna Culver WPtel: [address] [place] [address] E452 11/28/2019 Appointment: Anna Culver WPtel: [address] [place] [address] [place] [address] E452 10/17/2019 Appointment: Anna Culver WPtel: [address] [place] [address] E452 09/19/2019 Appointment: Sudha Hernadez WPtel: [address] [place] [address] [id number] E452 07/04/2019 Appointment: Sudha Hernadez WPtel: [address] [place] [address] [id number] [id number] 06/21/2019 Appointment: Charlene Oropeza WPtel: [address] [place] [address] [id number] 05/24/2019 Appointment: Mallory Delgado E452 04/27/2019 Appointment: Charlene Oropeza WPtel: [address] [place] [address] [id number] E452 04/25/2019 Appointment: Rasta Palafox WPtel: [address] [place] [address] [id number] E452 03/28/2019 Appointment: Rasta Palafox WPtel: [address] [place] [address] [id number] E452 02/14/2019 Appointment: Rasta Palafox WPtel: [address] [place] [address] [id number] E452 01/31/2019 Appointment: Rasta Palafox WPtel: [address] [place] [address] [id number] 12/27/2018 Referral: Pending Gynecology Referral Information Referral Processed Referral: Pending Pulmonolog y Referral Information Referral Processed Referral: Pending Psychiatry Referral Information Referral Initiated Referral: Pending Respirator y Services Referral Information Referral Initiated Referral: Pending Ophthalmology Referral Information Referral Initiated Referral: [facility] WPtel: [address] [facility] [address] Buckle Assembler placed a call out to the patient to notify her that it has been recommended that she be seen by 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 Patient agreed to be seen, does not have a provider of choice and no transportation issues. Buckle Assembler faxed referral and clinical notes to [facility] in [place], [place] near the patient's home. Patient to [...] seen and prefers a provider in the [place] or [place] area. Buckle Assembler placed a call out to everyone listed in the area and the only location that was able to accept the patient's insurance was [address] [address] and spoke with Maylin. Maylin asked that the patient's referral, face sheet and visit notes be faxed to . Buckle Assembler faxed over requested documents. Patient appointment confirmation letter generated and mailed to her home address. Patient to call to schedule an appointment. Processed Referral: [facility] WPtel: [address] [facility] [address] [place] [address] Patient notified that it has been advised that she be seen by Neurology. Patient agreed to be seen and prefers to be seen by a provider in the [place], [place] area. Patient denies any concerns with transportation, and prefers to schedule her own appointment. Buckle Assembler placed a call out to [facility] and spoke with Neeraj P: who confirmed that their office is able to accept new patients and the patient's insurance. After confirming the providers fax number, assembly instructions writer faxed over the patient's referral, and [...] reports need to send BS results to [place] for review 10/17/2019 Hemoglobin A1C 6.0; 07/04/2019 [...] anxiety and depressed mood routine follow up [facility] E03.9-244.9 Hypothyroidism, unspecified cont levothyroxine N39.46-788.33 Mixed [...] telephonic visit today. Specific topics reviewed were: Proper handwashing technique [...]
--- OUTSIDE RECORDS SUMMARY | 2023-12-07 02:11 | XMS_ITS | CCD ---
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 Refrigeration Manager Name Role Phone Palomo CLEARANCE REPRESENTATIVE, Anna Primary Care Provider Unav ailable Unavailable Chronic Care Management Unavaila ble Summary Purpose DataExchange Insurance Providers Payer name Policy type / Coverage type Covered constitution party ID Effective Begin Date Effective End Date SUKI MAYO [id number] Unknown Unknown Family history Mother Diagnosis Age [...] Unknown Disability 05/31/[address]: 087035713 Has never s moked or chewed tobacco 05/31/[address]: 159733097 Never drinks alco hol 05/31/2018 Has the [...] use ICD-10: Z01.89 ICD-9: V72.85 01/01/2020 Active Emily eye ICD-10: H10.029 ICD-9: 372.03 12/29/2019 Active [...] ICD-10: UXZ.01 ICD-9: XZ0.1 04/27/2019 Active Other prison (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 [...] ICD-10: R51 ICD-9: 784.0 10/03/2018 Active intermediate frame tender (current) use of non-steroidal anti-inflammatories (NSAID) ICD-10: Z79.1 ICD-9: V58.64 06/13/2018 Active Medications Medication Codes Instructions Start Date Stop Date Status Fill Instructions True Metrix Glucose Test Strip RxNorm: 1 Test Strips Miscellaneous QAM 02/22/20 20 2019 Inactive 100/container loperamide 2 mg tablet RxNorm: 060240 1 Tablet(s) Oral as needed take one tablet after each loose stool, maximum of 8 tablets in 24 hours 02/22/20 20 2019 Inactive cetirizine 10 mg tablet RxNorm: 4376536 1 Tablet(s) PO daily 01/17/20 20 2019 Inactive levothyroxine 50 mcg tablet RxNorm: 989476 1 Tablet(s) PO daily 01/17/20 20 2020 Inactive gabapentin 300 mg capsule RxNorm: 364675 1 Capsule(s) PO TID 01/17/20 20 2019 Inactive loperamide 2 mg tablet RxNorm: 030287 1 Tablet(s) Oral as needed take one tablet after each loose stool, maximum of 8 tablets in 24 hours 01/17/20 20 2019 Inactive quetiapine 100 mg tablet RxNorm: 289064 1 Tablet(s) Oral every night at bedtime 01/17/20 20 2019 Inactive lisinopril 2.5 mg tablet RxNorm: 406797 1 Tablet(s) PO daily 01/15/20 20 2020 Inactive Singulair 10 mg tablet RxNorm: 112657 1 Tablet(s) PO daily 01/15/20 20 2020 Inactive levothyroxine 50 mcg tablet RxNorm: 388590 1 Tablet(s) PO daily 01/15/20 20 2019 Inactive gabapentin 300 mg capsule RxNorm: 583282 1 Capsule(s) PO TID 01/15/20 20 2019 Inactive cetirizine 10 mg tablet RxNorm: 9135833 1 Tablet(s) PO daily 01/15/20 20 2019 Inactive gentamicin 0.3 % eye drops RxNorm: 164658 1 Drop(s) ophthalmic (eye) four times a day 12/29/19 20 2019 Inactive gentamicin 0.3 % eye drops RxNorm: 426130 1 Drop(s) ophthalmic (eye) four times a day 12/29/19 20 2019 Inactive gentamicin 0.3 % eye drops RxNorm: 404588 1 Drop(s) ophthalmic (eye) four times a day 12/29/19 20 2019 Inactive hydrochlorothiazide 25 mg tablet RxNorm: 416933 1 Tablet(s) Oral every day 12/21/19 20 2019 Inactive Sudafed 12 Hour 120 mg tablet,extended release RxNorm: 7340955 TAKE (1) TABLET BY MOUTH EVERY 12 HOURS NEEDED 12/21/19 20 2019 Inactive loperamide 2 mg tablet RxNorm: 524280 1 Tablet(s) Oral as needed take one tablet after each loose stool, maximum of 8 tablets in 24 hours 12/11/19 20 2019 Inactive loperamide 2 mg tablet RxNorm: 476510 1 Tablet(s) Oral as needed take one tablet after each loose stool, maximum of 8 tablets in 24 hours 12/11/19 20 2019 Inactive atorvastatin 40 mg tablet RxNorm: 390360 1 Tablet(s) Oral every day 11/29/19 20 2020 Inactive sertraline 100 mg tablet RxNorm: 174338 1 Tablet(s) Oral 11/28/19 20 2019 Inactive quetiapine 100 mg tablet RxNorm: 335701 1 Tablet(s) Oral every night at bedtime 11/28/19 20 2019 Inactive omeprazole 20 mg capsule,delayed release RxNorm: 156277 1 Capsule(s) Oral every day 11/20/19 20 2019 Inactive amoxicillin 250 mg capsule RxNorm: 170660 1 Capsule(s) Oral three times a day 11/07/19 20 2019 Inactive multivitamin with iron-mineral tablet RxNorm: 1 Tablet(s) Oral every day 10/29/192021 Inactive cetirizine 10 mg tablet RxNorm: 4342594 1 Tablet(s) PO daily 10/20/192019 Inactive This refill negates all other refills of this medication. Please do not auto refill Singulair 10 mg tablet RxNorm: 355891 1 Tablet(s) PO daily 10/20/192019 Inactive This refill negates all other refills of this medication gabapentin 300 mg capsule RxNorm: 638102 1 Capsule(s) PO TID 10/20/19 20 2019 Inactive lisinopril 2.5 mg tablet RxNorm: 041803 1 Tablet(s) PO daily 10/20/19 20 2019 Inactive levothyroxine 50 mcg tablet RxNorm: 411004 1 Tablet(s) PO daily 10/20/19 20 2019 Inactive This refill negates all other refills of this medication fenugreek seed extract 500 mg capsule RxNorm: 1 Capsule(s) Oral three times a day 10/17/19 20 2021 Inactive hydrochlorothiazide 25 mg tablet RxNorm: 649400 1 Tablet(s) Oral every day 10/17/19 20 2019 Inactive Alcohol Prep Pads RxNorm: 696696 1 Patch TOP QAM 10/16/19 20 2020 Inactive loperamide 2 mg tablet RxNorm: 178254 1 Tablet(s) Oral as needed take one [...] 09/19/202019 Inactive hydrochlorothiazide 25 mg tablet RxNorm: 103663 1 Tablet(s) Oral every day 09/19/202019 Inactive Sudafed 12 Hour 120 mg tablet,extended release RxNorm: 4577582 1 Tablet(s) Oral every 12 hours as needed 09/11/20 19 2018 Inactive omeprazole 20 mg capsule,delayed release RxNorm: 152610 1 Capsule(s) Oral every day 09/07/20 19 2019 Inactive Sudafed 12 Hour 120 mg tablet,extended release RxNorm: 8226291 1 Tablet(s) Oral every 12 hours as needed 09/04/20 19 2018 Inactive pantoprazole 40 mg tablet,delayed release RxNorm: 342177 1 Tablet(s) Oral every day 08/24/20 19 2018 Inactive discontinue any other H2Blkr. and PPI albuterol sulfate 2.5 mg/3 mL (0.083 %) solution for nebulization RxNorm: 049523 1 Vial Inhalation every four hours as needed as needed for dyspnea 08/17/20 19 2019 Inactive 60/box. This refill negates all other refills of this medication. Please do not fill early. Please do not auto refill. Symbicort 160 mcg-4.5 mcg/actuation HFA aerosol inhaler RxNorm: 9472279 2 Puff(s) INH BID 08/17/20 19 No Stop Date Active Alcohol Prep Pads RxNorm: 650444 1 Patch TOP QAM 08/17/20 19 2019 Inactive Ventolin HFA 90 mcg/actuation aerosol inhaler RxNorm: 023938 2 Puff(s) INH QID 08/09/20 19 2019 Inactive Please do not fill early. Please do not auto refill. This refill negates all other refills of this medication True Metrix Glucose Test Strip RxNorm: 1 Test Strips Miscellaneous QAM 08/09/20 19 2019 Inactive 100/container atorvastatin 40 mg tablet RxNorm: 414235 1 Tablet(s) Oral every day 07/04/20 19 2019 Inactive levmetamfetamine 50 mg nasal inhaler RxNorm: 1 Unit(s) NASAL Q3-4H Do not use more than every 3 hours or 8 times/24hours 06/26/20 19 2021 Inactive Please do not auto refill. This refill negates all other refills of this medication diclofenac sodium 75 mg tablet,delayed release RxNorm: 745159 1 Tablet(s) PO BID 06/26/20 19 2019 Inactive This refill negates all other refills of this medication buspirone 7.5 mg tablet RxNorm: 340328 1 Tablet(s) PO BID 06/26/20 19 2020 Inactive This refill negates all other refills of this medication hydrochlorothiazide 12.5 mg tablet RxNorm: 844961 1 Tablet(s) PO QAM 06/26/20 19 2019 Inactive Ventolin HFA 90 mcg/actuation aerosol inhaler RxNorm: 332569 2 Puff(s) INH QID 06/26/20 19 2018 Inactive Please do not fill early. Please do not auto refill. This refill negates all other refills of this medication Singulair 10 mg tablet RxNorm: 399405 1 Tablet(s) PO daily 06/26/20 19 2019 Inactive This refill negates all other refills of this medication cetirizine 10 mg tablet RxNorm: 9683807 1 Tablet(s) PO daily 06/26/20 19 2019 Inactive This refill negates all other refills of this medication. Please do not auto refill levothyroxine 50 mcg tablet RxNorm: 819977 1 Tablet(s) PO daily 06/26/20 19 2019 Inactive This refill negates all other refills of this medication ranitidine 150 mg tablet RxNorm: 226873 1 Tablet(s) PO BID 06/26/20 19 2018 Inactive This refill negates all other refills of this medication Calcium 600-D3 Plus (mag-zinc) 600 mg calcium-800 unit-50 mg tablet RxNorm: 1 Tablet(s) PO daily take an additonal tablet for itching. 06/26/20 19 2018 Inactive This refill negates all other refills of this medication albuterol sulfate 2.5 mg/3 mL (0.083 %) solution for nebulization RxNorm: 061381 1 Vial INH QID 06/26/20 19 2018 Inactive 60/box. This refill negates all other refills of this medication. Please do not fill early. Please do not auto refill. lisinopril 2.5 mg tablet RxNorm: 540095 1 Tablet(s) PO daily 06/21/20 19 2019 Inactive gabapentin 300 mg capsule RxNorm: 140962 1 Capsule(s) PO TID 06/21/20 19 2019 Inactive atorvastatin 20 mg tablet RxNorm: 607864 1 Tablet(s) PO QHS 06/07/20 19 2018 Inactive This refill negates all other refills of this medication TRUEplus Lancets 30 gauge RxNorm: 1 Lancets Miscellaneous QAM 05/29/20 19 2018 Inactive 100/box gabapentin 300 mg capsule RxNorm: 973061 1 Capsule(s) PO TID 05/03/20 19 2018 Inactive César Beckett (iron) 18 mg iron chewable tablet RxNorm: 1 Tablet(s) PO daily 04/04/202021 Inactive This refill negates all other refills of this medication gabapentin 300 mg capsule RxNorm: 064738 1 Capsule(s) PO TID as needed 02/01/202018 Inactive True Metrix Glucose Test Strip RxNorm: 1 Test Strips [facility] 02/01/20 19 2018 Inactive 100/container Alcohol Prep Pads RxNorm: 115718 1 Patch TOP QAM 02/01/20 19 2018 Inactive TRUEplus Lancets 30 gauge RxNorm: 1 Lancets Miscellaneous QAM 02/01/20 19 2018 Inactive 100/box lisinopril 2.5 mg tablet RxNorm: 952054 1 Tablet(s) PO daily 12/28/19 19 2018 Inactive ranitidine 150 mg tablet RxNorm: 201317 1 Tablet(s) PO BID 10/21/19 19 2018 Inactive This refill negates all other refills of this medication albuterol sulfate 2.5 mg/3 mL (0.083 %) solution for nebulization RxNorm: 828054 1 Vial INH QID 10/21/192018 Inactive 60/box. [...] this medication gabapentin 300 mg capsule RxNorm: 177637 1 Capsule(s) PO TID as needed 10/21/192018 Inactive atorvastatin 20 mg tablet RxNorm: 807272 1 Tablet(s) PO QHS 10/21/19 19 2018 Inactive This refill negates all other refills of this medication trazodone 50 mg tablet RxNorm: 348004 1 Tablet(s) PO QHS 10/21/19 19 2018 Inactive This refill negates all other refills of this medication Ventolin HFA 90 mcg/actuation aerosol inhaler RxNorm: 309026 2 Puff(s) INH QID 10/21/19 19 2018 Inactive Please do not fill early. Please do not auto refill. This refill negates all other refills of this medication Calcium 600-D3 Plus 600 mg calcium-800 unit-50 mg tablet RxNorm: 1 Tablet(s) PO daily take an additonal tablet for itching. 10/21/192018 Inactive This refill negates all other refills of this medication Singulair 10 mg tablet RxNorm: 270640 1 Tablet(s) PO daily 10/21/192018 Inactive This refill negates all other refills of this medication buspirone 7.5 mg tablet RxNorm: 912665 1 Tablet(s) PO BID 10/21/192018 Inactive This refill negates all other refills of this medication diclofenac sodium 75 mg tablet,delayed release RxNorm: 758364 1 Tablet(s) PO BID 10/21/192018 Inactive This refill negates all other refills of this medication hydrochlorothiazide 12.5 mg tablet RxNorm: 353708 1 Tablet(s) PO QAM 10/21/192018 Inactive metoprolol succinate ER 50 mg tablet,extended release 24 hr RxNorm: 668963 1 Tablet(s) PO daily 10/21/192018 Inactive This refill negates all other refills of this medication levothyroxine 50 mcg tablet RxNorm: 992202 1 Tablet(s) PO daily 10/21/19 19 2018 Inactive This refill negates all other refills of this medication cetirizine 10 mg tablet RxNorm: 8722709 1 Tablet(s) PO daily 10/21/19 19 2018 Inactive This refill negates all other refills of this medication. Please do not auto refill [place] Complete (iron) 18 mg iron chewable tablet RxNorm: 1 Tablet(s) PO daily 10/21/19 19 2018 Inactive This refill negates all other refills of this medication buspirone 7.5 mg tablet RxNorm: 282818 1 Tablet(s) PO BID 10/12/19 19 2018 Inactive cetirizine 10 mg tablet RxNorm: 6860283 1 Tablet(s) PO daily 09/28/20 18 2018 Inactive Guaiasorb DM 10 mg-100 mg/5 mL oral liquid RxNorm: 732766 10 Milliliter(s) PO As needed every 4 hr 09/24/20 18 2018 Inactive Vicks Vaporub 4.7 %-1.2 %-2.6 % topical ointment RxNorm: 0356011 1 Application TOP TID 09/24/20 18 2018 Inactive levmetamfetamine 50 mg nasal inhaler RxNorm: 1 Unit(s) NASAL Q3-4H 09/24/20 18 2017 Inactive sertraline 50 mg tablet RxNorm: 626902 1 Tablet(s) PO daily 09/09/20 18 2018 Inactive Please note dose trazodone 50 mg tablet RxNorm: 856846 1 Tablet(s) PO QHS 09/06/20 18 2018 Inactive sertraline 50 mg tablet RxNorm: 508497 1 Tablet(s) PO daily 09/06/20 18 2017 Inactive amoxicillin 500 mg tablet RxNorm: 879041 1 Tablet(s) PO Q12H 08/31/20 18 2017 Inactive albuterol sulfate 2.5 mg/3 mL (0.083 %) solution for nebulization RxNorm: 282457 1 Vial INH QID 08/10/20 18 2018 Inactive 60/box. Please do not fill early. Please do not auto refill. Prozac 10 mg capsule RxNorm: 657281 1 Capsule(s) PO daily 08/09/20 18 2017 Inactive buspirone 7.5 mg tablet RxNorm: 703522 1 Tablet(s) PO BID 08/09/20 18 2018 Inactive gabapentin 300 mg capsule RxNorm: 271771 1 Capsule(s) PO TID as needed 08/01/20 18 2018 Inactive hydrochlorothiazide 12.5 mg tablet RxNorm: 810241 1 Tablet(s) PO QAM 08/01/20 18 2018 Inactive ranitidine 150 mg tablet RxNorm: 383261 1 Tablet(s) PO BID 08/01/20 18 2018 Inactive Macrobid 100 mg capsule RxNorm: 649761 1 Capsule(s) PO Q12H 06/21/20 18 2017 Inactive Singulair 10 mg tablet RxNorm: 558507 1 Tablet(s) PO daily 06/14/20 18 2018 Inactive Ventolin HFA 90 mcg/actuation aerosol inhaler RxNorm: 6863729 2 Puff(s) INH QID 06/14/20 18 2018 Inactive Singulair 10 mg tablet RxNorm: 457388 1 Tablet(s) PO daily 06/14/20 18 2017 Inactive buspirone 7.5 mg tablet RxNorm: 146554 1 Tablet(s) PO BID 06/14/20 18 2017 Inactive Prozac 10 mg capsule RxNorm: 867084 1 Capsule(s) PO daily 06/14/20 18 2017 Inactive Neilmed Pediatric Sinus Rinse Refill packet RxNorm: 1 Unit Dose NASAL PRN 05/31/20 18 2021 Inactive diclofenac sodium 75 mg tablet,delayed release RxNorm: 985279 1 Tablet(s) PO BID 05/31/20 18 2017 Inactive lisinopril 2.5 mg tablet RxNorm: 234269 1 Tablet(s) PO daily 05/31/20 18 2017 Inactive metoprolol succinate ER 50 mg tablet,extended release 24 hr RxNorm: 219230 1 Tablet(s) PO daily 05/31/20 18 2017 Inactive levothyroxine 50 mcg tablet RxNorm: 921807 1 Tablet(s) PO daily 05/31/20 18 2017 Inactive TRUEplus Lancets 30 gauge RxNorm: 1 Lancets Miscellaneous QAM 05/31/20 18 2017 Inactive 100/box Ventolin HFA 90 mcg/actuation aerosol inhaler RxNorm: 066297 2 Puff(s) INH QID 05/31/20 18 2017 Inactive Aleve 220 mg capsule RxNorm: 4517324 1 Capsule(s) PO BID 05/31/20 18 2018 Inactive ranitidine 150 mg tablet RxNorm: 613555 1 Tablet(s) PO BID 05/31/20 18 2017 Inactive gabapentin 300 mg capsule RxNorm: 076030 1 Capsule(s) PO TID as needed 05/31/20 18 2017 Inactive atorvastatin 20 mg tablet RxNorm: 528582 1 Tablet(s) PO QHS 05/31/20 18 2017 Inactive True Metrix Glucose Test Strip RxNorm: 1 Test Strips Miscellaneous QA 05/31/20 18 2017 Inactive 50/container Calcium 600-D3 Plus 600 mg calcium-800 unit-50 mg tablet RxNorm: 1 Tablet(s) PO daily take an additonal tablet for itching. 05/31/20 18 2017 Inactive hydrochlorothiazide 12.5 mg tablet RxNorm: 849160 1 Tablet(s) PO QAM 05/31/20 18 2017 Inactive Flintstones Complete (iron) 18 mg iron chewable tablet RxNorm: 1 Tablet(s) PO daily 05/31/20 18 2017 Inactive d-mannose oral powder RxNorm: PO 18 2021 Inactive True Metrix Glucose Meter RxNorm: miscellaneous 08/17/20 19 2018 Inactive sertraline 50 mg tablet RxNorm: 228940 1 Tablet(s) PO daily 11/28/19 20 2019 Inactive loperamide 2 mg tablet RxNorm: 863703 oral 09/29/20 19 2018 Inactive Symbicort 160 mcg-4.5 mcg/actuation HFA aerosol inhaler RxNorm: 3202426 2 Puff(s) INH BID 08/17/20 19 2018 Inactive Medication Administered No Medication Administered data Procedures Procedure Codes Date Tobacco Assessment/Screening CPT-4: TCA Fall Risk Assessment SNOMED CT: 52786877 4 CPT-4: DFRA 01/01/2020 Functional Assessment CPT-4: DFA 01/01/2020 [place] Assessment CPT-4: DSWA 11/04 Patient Health Questionnaire CPT-4: DPHQ [place] Assessment CPT-4: DSWA 10/03 Hypertension CPT-4: HTN 10/17/2019 Fall Risk Assessment SNOMED CT: 46307722 4 CPT-4: DFRA 09/19/2019 Functional Assessment CPT-4: DFA 09/19/2019 Urinalysis, dip stick CPT-4: 13917 06/21/2019 Tobacco Assessment/Screening CPT-4: TCA Patient Health Questionnaire CPT-4: DPHQ AHA/REBECCA Classification Assessment CPT-4: DAHA 04/25/2019 Controlled Substance Report CPT-4: CTRSU 04/03 Urinalysis, dip stick CPT-4: 65326 03/28/2019 Urinalysis, dip stick CPT-4: 43243 03/28/2019 [id number] CPT-4: 81461 Unknown [id number] CPT-4: 80972 Unknown Gynecology Referral SNOMED CT: 957325395 CPT-4: R14 Unknown Reason For Visit No Reason For Visit data Plan of Care Planned Activity Notes Codes Status Date Referral: Pending Gynecology Referral Information Referral Processed Referral: Pending Pulmonolog y Referral Information Referral Processed Referral: Pending Psychiatry Referral Information Referral Initiated Referral: Pending Respirator y Services Referral Information Referral Initiated Referral: Pending Ophthalmol ogy Referral Information Referral Initiated Referral: [facility] WPtel: [address] [place] [address] [address] [place] [address] [place] Service Coordinator placed a call out to the patient to notify her that it has been recommended that she be seen by 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 Patient agreed to be seen, does not have a provider of choice and no transportation issues. Service Coordinator faxed referral and clinical notes to [facility] formerly [facility] in [place], [place] near the patient's home. Patient to [...] seen and prefers a provider in the [place] or [place] area. Service Coordinator placed a call out to everyone listed in the area and the only location that was able to accept the patient's insurance was [address] [id number] and spoke with Maylin. Maylin asked that the patient's referral, face sheet and visit notes be faxed to . Service Coordinator faxed over requested documents. Patient appointment confirmation letter generated and mailed to her home address. Patient to call to schedule an appointment. Processed Referral: [facility] WPtel: [address] [place], [place] [id number] Patient notified that it has been advised that she be seen by Neurology. Patient agreed to be seen and prefers to be seen by a provider in the [place], [place] area. Patient denies any concerns with transportation, and prefers to schedule her own appointment. Service Coordinator placed a call out to [facility] and spoke with Neeraj P: who confirmed that their office is able to accept new patients and the patient's insurance. After confirming the providers fax number, technical writer and editor faxed over the patient's referral, and most [...]
--- OUTSIDE RECORDS SUMMARY | 2023-12-07 02:11 | XMS_ITS | CCD ---
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 Name Role Phone Anna Culver NP Primary Care Provider Unav ailable Unavailable Chronic Care Management Unavaila ble Summary Purpose DataExchange Insurance Providers Payer name Policy type / Coverage type Covered alliance party ID Effective Begin Date Effective End Date SUKI MAYO [id number] Unknown Unknown Family history Mother Diagnosis Age [...] Unknown Disability 05/31/[address]: 346298471 Has never s moked or chewed tobacco 05/31/[address]: 649943324 Never drinks alco hol 05/31/2018 Has the [...] 10/03/2018 Active Type 2 diabetes mellitus wit h peripheral neuropathy ICD-10: E11.42 ICD-9: 250.60 11/28/2019 Active Encounter for screening for tobacco use ICD-10: Z01.89 ICD-9: V72.85 01/01/2020 Active [place] eye ICD-10: H10.029 ICD-9: 372.03 12/29/2019 Active [...] Fill Instructions cetirizine 10 mg tablet RxNorm: 3049377 1 Tablet(s) PO daily 01/17/20 20 2019 Inactive loperamide 2 mg tablet RxNorm: 922849 1 Tablet(s) Oral as needed take one tablet after each loose stool, maximum of 8 tablets in 24 hours 01/17/20 20 2019 Inactive quetiapine 100 mg tablet RxNorm: 015915 1 Tablet(s) Oral every night at bedtime 01/17/20 20 2019 Inactive levothyroxine 50 mcg tablet RxNorm: 116593 1 Tablet(s) PO daily 01/17/20 20 2020 Inactive gabapentin 300 mg capsule RxNorm: 358304 1 Capsule(s) PO TID 01/17/20 20 2019 Inactive lisinopril 2.5 mg tablet RxNorm: 532488 1 Tablet(s) PO daily 01/15/20 20 2020 Inactive Singulair 10 mg tablet RxNorm: 860305 1 Tablet(s) PO daily 01/15/20 20 2020 Inactive levothyroxine 50 mcg tablet RxNorm: 956258 1 Tablet(s) PO daily 01/15/20 20 2019 Inactive gabapentin 300 mg capsule RxNorm: 934816 1 Capsule(s) PO TID 01/15/20 20 2019 Inactive cetirizine 10 mg tablet RxNorm: 1761772 1 Tablet(s) PO daily 01/15/20 20 2019 Inactive gentamicin 0.3 % eye drops RxNorm: 377521 1 Drop(s) ophthalmic (eye) four times a day 12/29/19 20 2019 Inactive gentamicin 0.3 % eye drops RxNorm: 031410 1 Drop(s) ophthalmic (eye) four times a day 12/29/19 20 2019 Inactive gentamicin 0.3 % eye drops RxNorm: 396052 1 Drop(s) ophthalmic (eye) four times a day 12/29/19 20 2019 Inactive hydrochlorothiazide 25 mg tablet RxNorm: 694936 1 Tablet(s) Oral every day 12/21/19 20 2019 Inactive Sudafed 12 Hour 120 mg tablet,extended release RxNorm: 9770906 TAKE (1) TABLET BY MOUTH EVERY 12 HOURS NEEDED 12/21/19 20 2019 Inactive loperamide 2 mg tablet RxNorm: 694053 1 Tablet(s) Oral as needed take one tablet after each loose stool, maximum of 8 tablets in 24 hours 12/11/19 20 2019 Inactive loperamide 2 mg tablet RxNorm: 731979 1 Tablet(s) Oral as needed take one tablet after each loose stool, maximum of 8 tablets in 24 hours 12/11/19 20 2019 Inactive atorvastatin 40 mg tablet RxNorm: 640464 1 Tablet(s) Oral every day 11/29/19 20 2020 Inactive sertraline 100 mg tablet RxNorm: 729795 1 Tablet(s) Oral 11/28/19 20 2019 Inactive quetiapine 100 mg tablet RxNorm: 624398 1 Tablet(s) Oral every night at bedtime 11/28/19 20 2019 Inactive omeprazole 20 mg capsule,delayed release RxNorm: 580447 1 Capsule(s) Oral every day 11/20/19 20 2019 Inactive amoxicillin 250 mg capsule RxNorm: 763815 1 Capsule(s) Oral three times a day 11/07/19 20 2019 Inactive multivitamin with iron-mineral tablet RxNorm: 1 Tablet(s) Oral every day 10/29/19 20 2021 Inactive cetirizine 10 mg tablet RxNorm: 2009669 1 Tablet(s) PO daily 10/20/19 20 2019 Inactive This refill negates all other refills of this medication. Please do not auto refill Singulair 10 mg tablet RxNorm: 422070 1 Tablet(s) PO daily 10/20/19 20 2019 Inactive This refill negates all other refills of this medication gabapentin 300 mg capsule RxNorm: 599893 1 Capsule(s) PO TID 10/20/19 20 2019 Inactive lisinopril 2.5 mg tablet RxNorm: 885725 1 Tablet(s) PO daily 10/20/19 20 2019 Inactive levothyroxine 50 mcg tablet RxNorm: 276283 1 Tablet(s) PO daily 10/20/19 20 2019 Inactive This refill negates all other refills of this medication fenugreek seed extract 500 mg capsule RxNorm: 1 Capsule(s) Oral three times a day 10/17/19 20 2021 Inactive hydrochlorothiazide 25 mg tablet RxNorm: 646700 1 Tablet(s) Oral every day 10/17/19 20 2019 Inactive Alcohol Prep Pads RxNorm: 150137 1 Patch TOP QAM 10/16/19 20 2020 Inactive loperamide 2 mg tablet RxNorm: 312374 1 Tablet(s) Oral as needed take one [...] 2019 Inactive hydrochlorothiazide 25 mg tablet RxNorm: 636361 1 Tablet(s) Oral every day 09/19/20 19 2019 Inactive Sudafed 12 Hour 120 mg tablet,extended release RxNorm: 7667168 1 Tablet(s) Oral every 12 hours as needed 09/11/20 19 2018 Inactive omeprazole 20 mg capsule,delayed release RxNorm: 044259 1 Capsule(s) Oral every day 09/07/20 19 2019 Inactive Sudafed 12 Hour 120 mg tablet,extended release RxNorm: 4049779 1 Tablet(s) Oral every 12 hours as needed 09/04/20 19 2018 Inactive pantoprazole 40 mg tablet,delayed release RxNorm: 042227 1 Tablet(s) Oral every day 08/24/202018 Inactive discontinue any other H2Blkr. and PPI albuterol sulfate 2.5 mg/3 mL (0.083 %) solution for nebulization RxNorm: 437098 1 Vial Inhalation every four hours as needed as needed for dyspnea 08/17/20 19 2019 Inactive 60/box. This refill negates all other refills of this medication. Please do not fill early. Please do not auto refill. Symbicort 160 mcg-4.5 mcg/actuation HFA aerosol inhaler RxNorm: 7777874 2 Puff(s) INH BID 08/17/20 19 No Stop Date Active Alcohol Prep Pads RxNorm: 764088 1 Patch TOP QAM 08/17/20 19 2019 Inactive True Metrix Glucose Test Strip RxNorm: 1 Test Strips Miscellaneous QAM 08/09/20 19 2019 Inactive 100/container Ventolin HFA 90 mcg/actuation aerosol inhaler RxNorm: 215818 2 Puff(s) INH QID 08/09/20 19 2019 Inactive Please do not fill early. Please do not auto refill. This refill negates all other refills of this medication atorvastatin 40 mg tablet RxNorm: 156753 1 Tablet(s) Oral every day 07/04/20 19 2019 Inactive levmetamfetamine 50 mg nasal inhaler RxNorm: 1 Unit(s) NASAL Q3-4H Do not use more than every 3 hours or 8 times/24hours 06/26/20 19 2021 Inactive Please do not auto refill. This refill negates all other refills of this medication diclofenac sodium 75 mg tablet,delayed release RxNorm: 462971 1 Tablet(s) PO BID 06/26/20 19 2019 Inactive This refill negates all other refills of this medication buspirone 7.5 mg tablet RxNorm: 807729 1 Tablet(s) PO BID 06/26/20 19 2020 Inactive This refill negates all other refills of this medication hydrochlorothiazide 12.5 mg tablet RxNorm: 924794 1 Tablet(s) PO QAM 06/26/20 19 2019 Inactive Ventolin HFA 90 mcg/actuation aerosol inhaler RxNorm: 526561 2 Puff(s) INH QID 06/26/20 19 2018 Inactive Please do not fill early. Please do not auto refill. This refill negates all other refills of this medication Singulair 10 mg tablet RxNorm: 489100 1 Tablet(s) PO daily 06/26/20 19 2019 Inactive This refill negates all other refills of this medication cetirizine 10 mg tablet RxNorm: 7758632 1 Tablet(s) PO daily 06/26/20 19 2019 Inactive This refill negates all other refills of this medication. Please do not auto refill levothyroxine 50 mcg tablet RxNorm: 273723 1 Tablet(s) PO daily 06/26/20 19 2019 Inactive This refill negates all other refills of this medication ranitidine 150 mg tablet RxNorm: 548564 1 Tablet(s) PO BID 06/26/20 19 2018 Inactive This refill negates all other refills of this medication Calcium 600-D3 Plus (mag-zinc) 600 mg calcium-800 unit-50 mg tablet RxNorm: 1 Tablet(s) PO daily take an additonal tablet for itching. 06/26/20 19 2018 Inactive This refill negates all other refills of this medication albuterol sulfate 2.5 mg/3 mL (0.083 %) solution for nebulization RxNorm: 953018 1 Vial INH QID 06/26/20 19 2018 Inactive 60/box. This refill negates all other refills of this medication. Please do not fill early. Please do not auto refill. lisinopril 2.5 mg tablet RxNorm: 791040 1 Tablet(s) PO daily 06/21/20 19 2019 Inactive gabapentin 300 mg capsule RxNorm: 318332 1 Capsule(s) PO TID 06/21/20 19 2019 Inactive atorvastatin 20 mg tablet RxNorm: 453664 1 Tablet(s) PO QHS 06/07/20 19 2018 Inactive This refill negates all other refills of this medication TRUEplus Lancets 30 gauge RxNorm: 1 Lancets Miscellaneous QAM 05/29/20 19 2018 Inactive 100/box gabapentin 300 mg capsule RxNorm: 067569 1 Capsule(s) PO TID 08/012018 Inactive César Beckett (iron) 18 mg iron chewable tablet RxNorm: 1 Tablet(s) PO daily 04/04/202021 Inactive This refill negates all other refills of this medication gabapentin 300 mg capsule RxNorm: 698819 1 Capsule(s) PO TID as needed 02/01/202018 Inactive True Metrix Glucose Test Strip RxNorm: 1 Test Strips Miscellaneous QAM 02/01/20 19 2018 Inactive 100/container Alcohol Prep Pads RxNorm: 435837 1 Patch TOP QAM 02/01/20 19 2018 Inactive TRUEplus Lancets 30 gauge RxNorm: 1 Lancets Miscellaneous QAM 02/01/202018 Inactive 100/box lisinopril 2.5 mg tablet RxNorm: 895177 1 Tablet(s) PO daily 12/28/192018 Inactive ranitidine 150 mg tablet RxNorm: 818201 1 Tablet(s) PO BID 10/21/192018 Inactive This refill negates all other refills of this medication albuterol sulfate 2.5 mg/3 mL (0.083 %) solution for nebulization RxNorm: 839882 1 Vial INH QID 10/21/192018 Inactive 60/box. [...] this medication gabapentin 300 mg capsule RxNorm: 780216 1 Capsule(s) PO TID as needed 10/21/192018 Inactive atorvastatin 20 mg tablet RxNorm: 335589 1 Tablet(s) PO QHS 10/21/192018 Inactive This refill negates all other refills of this medication trazodone 50 mg tablet RxNorm: 012601 1 Tablet(s) PO QHS 10/21/19 19 2018 Inactive This refill negates all other refills of this medication Ventolin HFA 90 mcg/actuation aerosol inhaler RxNorm: 056349 2 Puff(s) INH QID 10/21/19 19 2018 Inactive Please do not fill early. Please do not auto refill. This refill negates all other refills of this medication Calcium 600-D3 Plus 600 mg calcium-800 unit-50 mg tablet RxNorm: 1 Tablet(s) PO daily take an additonal tablet for itching. 10/21/192018 Inactive This refill negates all other refills of this medication Singulair 10 mg tablet RxNorm: 875359 1 Tablet(s) PO daily 10/21/192018 Inactive This refill negates all other refills of this medication buspirone 7.5 mg tablet RxNorm: 831761 1 Tablet(s) PO BID 10/21/192018 Inactive This refill negates all other refills of this medication diclofenac sodium 75 mg tablet,delayed release RxNorm: 953740 1 Tablet(s) PO BID 10/21/19 19 2018 Inactive This refill negates all other refills of this medication hydrochlorothiazide 12.5 mg tablet RxNorm: 060136 1 Tablet(s) PO QAM 10/21/192018 Inactive metoprolol succinate ER 50 mg tablet,extended release 24 hr RxNorm: 174276 1 Tablet(s) PO daily 10/21/192018 Inactive This refill negates all other refills of this medication levothyroxine 50 mcg tablet RxNorm: 603057 1 Tablet(s) PO daily 10/21/192018 Inactive This refill negates all other refills of this medication cetirizine 10 mg tablet RxNorm: 8565716 1 Tablet(s) PO daily 10/21/192018 Inactive This refill negates all other refills of this medication. Please do not auto refill Flintstones Complete (iron) 18 mg iron chewable tablet RxNorm: 1 Tablet(s) PO daily 10/21/19 2019 Inactive This refill negates all other refills of this medication buspirone 7.5 mg tablet RxNorm: 837072 1 Tablet(s) PO BID 10/12/19 19 2018 Inactive cetirizine 10 mg tablet RxNorm: 2854928 1 Tablet(s) PO daily 09/28/20 18 2018 Inactive Guaiasorb DM 10 mg-100 mg/5 mL oral liquid RxNorm: 874625 10 Milliliter(s) PO As needed every 4 hr 09/24/20 18 2018 Inactive Vicks Vaporub 4.7 %-1.2 %-2.6 % topical ointment RxNorm: 1557750 1 Application TOP TID 09/24/20 18 2018 Inactive levmetamfetamine 50 mg nasal inhaler RxNorm: 1 Unit(s) NASAL Q3-4H 09/24/20 18 2017 Inactive sertraline 50 mg tablet RxNorm: 592511 1 Tablet(s) PO daily 09/09/20 18 2018 Inactive Please note dose trazodone 50 mg tablet RxNorm: 641421 1 Tablet(s) PO QHS 09/06/20 18 2018 Inactive sertraline 50 mg tablet RxNorm: 116374 1 Tablet(s) PO daily 09/06/20 18 2017 Inactive amoxicillin 500 mg tablet RxNorm: 917144 1 Tablet(s) PO Q12H 08/31/20 18 2017 Inactive albuterol sulfate 2.5 mg/3 mL (0.083 %) solution for nebulization RxNorm: 665063 1 Vial INH QID 08/10/20 18 2018 Inactive 60/box. Please do not fill early. Please do not auto refill. Prozac 10 mg capsule RxNorm: 609138 1 Capsule(s) PO daily 08/09/20 18 2017 Inactive buspirone 7.5 mg tablet RxNorm: 618287 1 Tablet(s) PO BID 08/09/20 18 2018 Inactive gabapentin 300 mg capsule RxNorm: 042750 1 Capsule(s) PO TID as needed 08/01/20 18 2018 Inactive hydrochlorothiazide 12.5 mg tablet RxNorm: 517240 1 Tablet(s) PO QAM 08/01/20 18 2018 Inactive ranitidine 150 mg tablet RxNorm: 891830 1 Tablet(s) PO BID 08/01/20 18 2018 Inactive Macrobid 100 mg capsule RxNorm: 299278 1 Capsule(s) PO Q12H 06/21/20 18 2017 Inactive Singulair 10 mg tablet RxNorm: 496868 1 Tablet(s) PO daily 06/14/20 18 2018 Inactive Ventolin HFA 90 mcg/actuation aerosol inhaler RxNorm: 9811244 2 Puff(s) INH QID 06/14/20 18 2018 Inactive Singulair 10 mg tablet RxNorm: 686736 1 Tablet(s) PO daily 06/14/20 18 2017 Inactive buspirone 7.5 mg tablet RxNorm: 446476 1 Tablet(s) PO BID 06/14/20 18 2017 Inactive Prozac 10 mg capsule RxNorm: 733462 1 Capsule(s) PO daily 06/14/20 18 2017 Inactive Neilmed Pediatric Sinus Rinse Refill packet RxNorm: 1 Unit Dose NASAL PRN 05/31/20 18 2021 Inactive diclofenac sodium 75 mg tablet,delayed release RxNorm: 085325 1 Tablet(s) PO BID 05/31/20 18 2017 Inactive lisinopril 2.5 mg tablet RxNorm: 642970 1 Tablet(s) PO daily 05/31/20 18 2017 Inactive metoprolol succinate ER 50 mg tablet,extended release 24 hr RxNorm: 521500 1 Tablet(s) PO daily 05/31/20 18 2017 Inactive levothyroxine 50 mcg tablet RxNorm: 058837 1 Tablet(s) PO daily 05/31/20 18 2017 Inactive TRUEplus Lancets 30 gauge RxNorm: 1 Lancets Miscellaneous QAM 05/31/20 18 2017 Inactive 100/box Ventolin HFA 90 mcg/actuation aerosol inhaler RxNorm: 152132 2 Puff(s) INH QID 05/31/20 18 2017 Inactive Aleve 220 mg capsule RxNorm: 6236774 1 Capsule(s) PO BID 05/31/20 18 2018 Inactive ranitidine 150 mg tablet RxNorm: 206285 1 Tablet(s) PO BID 05/31/20 18 2017 Inactive gabapentin 300 mg capsule RxNorm: 458038 1 Capsule(s) PO TID as needed 05/31/20 18 2017 Inactive atorvastatin 20 mg tablet RxNorm: 842648 1 Tablet(s) PO QHS 05/31/20 18 2017 Inactive True Metrix Glucose Test Strip RxNorm: 1 [facility] 05/31/20 18 2017 Inactive 50/container Calcium 600-D3 Plus 600 mg calcium-800 unit-50 mg tablet RxNorm: 1 Tablet(s) PO daily take an additonal tablet for itching. 05/31/20 18 2017 Inactive hydrochlorothiazide 12.5 mg tablet RxNorm: 344559 1 Tablet(s) PO QAM 05/31/20 18 2017 Inactive Flintstones Complete (iron) 18 mg iron chewable tablet RxNorm: 1 Tablet(s) PO daily 05/31/20 18 2017 Inactive d-mannose oral powder RxNorm: PO 18 2021 Inactive True Metrix Glucose Meter RxNorm: miscellaneous 08/17/20 19 2018 Inactive sertraline 50 mg tablet RxNorm: 634986 1 Tablet(s) PO daily 11/28/19 20 2019 Inactive loperamide 2 mg tablet RxNorm: 950148 oral 09/29/20 19 2018 Inactive Symbicort 160 mcg-4.5 mcg/actuation HFA aerosol inhaler RxNorm: 8618834 2 Puff(s) INH BID 08/17/20 19 2018 Inactive Medication Administered No Medication Administered data Procedures Procedure Codes Date Tobacco Assessment/Screening CPT-4: TCA [facility] CPT-4: DFRA 01/01/2020 Functional Assessment CPT-4: DFA 01/01/2020 [place] Fany Assessment CPT-4: DSWA 11/04 Patient Health Questionnaire CPT-4: DPHQ [place] Fany Assessment CPT-4: DSWA 10/03 Hypertension CPT-4: HTN 10/17/2019 Fall Risk Assessment SNOMED CT: 90829429 4 CPT-4: DFRA 09/19/2019 Functional Assessment CPT-4: DFA 09/19/2019 Urinalysis, dip stick CPT-4: 86766 06/21/2019 Tobacco Assessment/Screening CPT-4: TCA Patient Health Questionnaire CPT-4: DPHQ AHA/REBECCA Classification Assessment CPT-4: DAHA 04/25/2019 Controlled Substance Report CPT-4: CTRSU 04/03 Urinalysis, dip stick CPT-4: 08218 03/28/2019 Urinalysis, dip stick CPT-4: 94381 03/28/2019 [id number] CPT-4: 90743 Unknown [id number] CPT-4: 75687 Unknown Gynecology Referral SNOMED CT: 005258354 CPT-4: R14 Unknown Vital Signs Date Vital 01/24/2020 BMI: 55.9 Code: 62915-9 Height: 4'11 Code: 8302-2 Weight: 277 lbs Code: 28401-3 Reason For Visit Reason For Visit Effective Dates Notes hypertension 01/24/2020 diabetes mellitus 01/24/2020 Interim health update 01/24/2020 Encounters Encounter Performer Location Location Address Codes Magdi e ([id number]) (EST PT) EXPANDED PROBLEM FOCUSED TELEHEALTH VISIT Diagnosis: Type 2 diabetes mellitus with peripheral neuropathy[ICD10: E11.42] Diagnosis: Essential (primary) hypertension[ICD1 0: I10] Anna Culver [place] [facility] [address] [facility] [address] [place] [address] CPT-4: 82808 01/24/2020 Plan of Care Planned Activity Notes Codes Status Date Visit Plan: patient with I phone able to participate in visual and audio telehealth visit R51-539.2 Syncope and collapse denies any recent episodes [...] anxiety and depressed mood routine follow up [facility] E03.9-244.9 Hypothyroidism, unspecified cont levothyroxine N39.46-788.33 Mixed incontinence use of incontinence supplies Z68.43-V85.43 Adult BMI 50.0-59.9 kg/sq m Office Messenger to visit to discuss portion control trying to avoid soda, drinking sparkling flavored pal and occasional Heike Green Tea and honey H10.029-372.03 [place] eye-resolved ophthalmic ointment received today advised to [...] verbalized understanding of all above topics. 01/24/2020 Patient Education: Hypertension Completed 01/24/2020 Patient Education: Diabetes Complete d 01/24/2020 Patient Education: Patient Medication Summary Completed 01/24/2020 Appointment: Anna Culver WPtel: [address] [place] [address] E452 01/01/2020 Appointment: Anna Culver WPtel: [address] [place] [address] E452 11/28/2019 Appointment: Anna Culver WPtel: [address] [place] [address] E452 10/17/2019 Appointment: Anna Culver WPtel: [address] [place] [address] E452 09/19/2019 Appointment: Sudha Hernadez WPtel: [address] [facility] [id number] E452 07/04/2019 Appointment: Sudha Hernadez WPtel: [address] [facility] [id number] E452 06/21/2019 Appointment: Charlene Oropeza WPtel: [address] [facility] [id number] E452 05/24/2019 Appointment: Mallory Delgado E452 04/27/2019 Appointment: Charlene Oropeza WPtel: [address] [facility] [id number] E452 04/25/2019 Appointment: Rasta Palafox WPtel: [address] [facility] 202b [id number] E452 03/28/2019 Appointment: aRsta Palafox WPtel: [address] [facility] 202b [id number] E452 02/14/2019 Appointment: Rasta Palafox WPtel: [address] [facility] b [id number] E452 01/31/2019 Appointment: Rasta Palafox WPtel: [address] [facility] b [id number] E420 12/27/2018 Referral: Pending Gynecology Referral Information Referral Processed Referral: Pending Pulmonolog y Referral Information Referral Processed Referral: Pending Psychiatry Referral Information Referral Initiated Referral: Pending Respirator y Services Referral Information Referral Initiated Referral: Pending Ophthalmology Referral Information Referral Initiated Referral: [facility] WPtel: [address] [place] [address] Director Of Contracts placed a call out to the patient to notify her that it has been recommended that she be seen by a urologist. Patient agreed to be seen, does not have a provider of choice and no transportation issues. Director Of Contracts faxed referral and clinical notes to [facility] in [place], [place] near the patient's home. Patient to [...] seen and prefers a provider in the [place] or [place] area. Director Of Contracts placed a call out to everyone listed in the area and the only location that was able to accept the patient's insurance was [place] [address] [place] [address] and spoke with Maylin. Maylin asked that the patient's referral, face sheet and visit notes be faxed to . Director Of Contracts faxed over requested documents. Patient appointment confirmation letter generated and mailed to her home address. Patient to call to schedule an appointment. Processed Referral: [facility] WPtel: [address] [facility] [address] [place], [place] [id number] Patient notified that it has been advised that she be seen by Neurology. Patient agreed to be seen and prefers to be seen by a provider in the [place], [place] area. Patient denies any concerns with transportation, and prefers to schedule her own appointment. Director Of Contracts placed a call out to [facility] and spoke with Neeraj P: [...] participate in visual and audio telehealth visit R58-609.2 Syncope and collapse denies any recent episodes advise to check BS when feeling light headed E11.42-250.60 Type 2 diabetes mellitus with peripheral neuropathy range 89-120, tries to keep BS around 90-varied times of the day 10/17/2019 Hemoglobin A1C 6.0; 07/04/2019 Hgb A1C 5.6 10/17/2019 [place] Fany 7/10-instructed on good daily foot care [...] anxiety and depressed mood routine follow up [facility] E03.9-244.9 Hypothyroidism, unspecified cont levothyroxine N39.46-788.33 Mixed incontinence use of incontinence supplies Z68.43-V85.43 Adult BMI 50.0-59.9 kg/sq m Office Messenger to visit to discuss portion control trying to avoid soda, drinking sparkling flavored pal and occasional Heike Green Tea and honey H10.029-372.03 [place] eye-resolved ophthalmic ointment received today advised to [...]
--- OUTSIDE RECORDS SUMMARY | 2023-12-07 02:11 | XMS_ITS | CCD ---
Author Name Leena Culver NP Address [address] [place] [address] [address] [place] [address] Phone Organization [facility] Phone Care Team Providers Care Refractive Surgeon Name Role Phone Anna Culver NP Primary Care Provider Unav ailable Unavailable Chronic Care Management Unavaila ble Summary Purpose DataExchange Insurance Providers Payer name Policy type / Coverage type Covered green party ID Effective Begin Date Effective End Date SUKI MAYO [id number] Unknown Unknown Family history Mother Diagnosis Age [...] Unknown Disability 05/31/[address]: 031164069 Has never s moked or chewed tobacco 05/31/[address]: 602917812 Never drinks alco hol 05/31/2018 Has the [...] use ICD-10: Z01.89 ICD-9: V72.85 01/01/2020 Active [place] eye ICD-10: H10.029 ICD-9: 372.03 12/29/2019 Active [...] UXZ.01 ICD-9: XZ0.1 04/27/2019 Active 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 ICD-10: Z79.899 ICD-9: [...] Headache ICD-10: R51 ICD-9: 784.0 10/03/2018 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 (NSAID) ICD-10: Z79.1 ICD-9: V58.64 06/13/2018 Active Medications Medication Codes Instructions Start Date Stop Date Status Fill Instructions cetirizine 10 mg tablet RxNorm: 4125198 1 Tablet(s) PO daily 01/17/2008/ 2020 Inactive loperamide 2 mg tablet RxNorm: 493706 1 Tablet(s) Oral as needed take one tablet after each loose stool, maximum of 8 tablets in 24 hours 01/17/20 20 2019 Inactive quetiapine 100 mg tablet RxNorm: 603419 1 Tablet(s) Oral every night at bedtime 01/17/20 20 2019 Inactive levothyroxine 50 mcg tablet RxNorm: 949257 1 Tablet(s) PO daily 01/17/20 20 2020 Inactive gabapentin 300 mg capsule RxNorm: 634444 1 Capsule(s) PO TID 01/17/20 20 2019 Inactive lisinopril 2.5 mg tablet RxNorm: 935265 1 Tablet(s) PO daily 01/15/20 20 2020 Inactive Singulair 10 mg tablet RxNorm: 263391 1 Tablet(s) PO daily 01/15/20 20 2020 Inactive levothyroxine 50 mcg tablet RxNorm: 138447 1 Tablet(s) PO daily 01/15/20 20 2019 Inactive gabapentin 300 mg capsule RxNorm: 686872 1 Capsule(s) PO TID 01/15/20 20 2019 Inactive cetirizine 10 mg tablet RxNorm: 8572497 1 Tablet(s) PO daily 01/15/20 20 2019 Inactive gentamicin 0.3 % eye drops RxNorm: 512750 1 Drop(s) ophthalmic (eye) four times a day 12/29/19 20 2019 Inactive gentamicin 0.3 % eye drops RxNorm: 617940 1 Drop(s) ophthalmic (eye) four times a day 12/29/19 20 2019 Inactive gentamicin 0.3 % eye drops RxNorm: 433106 1 Drop(s) ophthalmic (eye) four times a day 12/29/19 20 2019 Inactive hydrochlorothiazide 25 mg tablet RxNorm: 547241 1 Tablet(s) Oral every day 12/21/19 20 2019 Inactive Sudafed 12 Hour 120 mg tablet,extended release RxNorm: 6105610 TAKE (1) TABLET BY MOUTH EVERY 12 HOURS NEEDED 12/21/19 20 2019 Inactive loperamide 2 mg tablet RxNorm: 245849 1 Tablet(s) Oral as needed take one tablet after each loose stool, maximum of 8 tablets in 24 hours 12/11/19 20 2019 Inactive loperamide 2 mg tablet RxNorm: 215596 1 Tablet(s) Oral as needed take one tablet after each loose stool, maximum of 8 tablets in 24 hours 12/11/19 20 2019 Inactive atorvastatin 40 mg tablet RxNorm: 485949 1 Tablet(s) Oral every day 11/29/19 20 2020 Inactive sertraline 100 mg tablet RxNorm: 727354 1 Tablet(s) Oral 11/28/19 20 2019 Inactive quetiapine 100 mg tablet RxNorm: 507750 1 Tablet(s) Oral every night at bedtime 11/28/19 20 2019 Inactive omeprazole 20 mg capsule,delayed release RxNorm: 162521 1 Capsule(s) Oral every day 11/20/19 20 2019 Inactive amoxicillin 250 mg capsule RxNorm: 338991 1 Capsule(s) Oral three times a day 11/07/19 20 2019 Inactive multivitamin with iron-mineral tablet RxNorm: 1 Tablet(s) Oral every day 10/29/19 20 2021 Inactive cetirizine 10 mg tablet RxNorm: 6816654 1 Tablet(s) PO daily 10/20/19 20 2019 Inactive This refill negates all other refills of this medication. Please do not auto refill Singulair 10 mg tablet RxNorm: 132101 1 Tablet(s) PO daily 10/20/19 20 2019 Inactive This refill negates all other refills of this medication gabapentin 300 mg capsule RxNorm: 250127 1 Capsule(s) PO TID 10/20/19 20 2019 Inactive lisinopril 2.5 mg tablet RxNorm: 132349 1 Tablet(s) PO daily 10/20/19 20 2019 Inactive levothyroxine 50 mcg tablet RxNorm: 102311 1 Tablet(s) PO daily 10/20/19 20 2019 Inactive This refill negates all other refills of this medication fenugreek seed extract 500 mg capsule RxNorm: 1 Capsule(s) Oral three times a day 10/17/19 20 2021 Inactive hydrochlorothiazide 25 mg tablet RxNorm: 252744 1 Tablet(s) Oral every day 10/17/19 20 2019 Inactive Alcohol Prep Pads RxNorm: 095760 1 Patch TOP QAM 10/16/19 20 2020 Inactive loperamide 2 mg tablet RxNorm: 440239 1 Tablet(s) Oral as needed take one [...] 2019 Inactive hydrochlorothiazide 25 mg tablet RxNorm: 302660 1 Tablet(s) Oral every day 09/19/20 19 2019 Inactive Sudafed 12 Hour 120 mg tablet,extended release RxNorm: 2222498 1 Tablet(s) Oral every 12 hours as needed 09/11/20 19 2018 Inactive omeprazole 20 mg capsule,delayed release RxNorm: 886885 1 Capsule(s) Oral every day 09/07/20 19 2019 Inactive Sudafed 12 Hour 120 mg tablet,extended release RxNorm: 9739117 1 Tablet(s) Oral every 12 hours as needed 09/04/20 19 2018 Inactive pantoprazole 40 mg tablet,delayed release RxNorm: 664909 1 Tablet(s) Oral every day 08/24/20 19 2018 Inactive discontinue any other H2Blkr. and PPI albuterol sulfate 2.5 mg/3 mL (0.083 %) solution for nebulization RxNorm: 018355 1 Vial Inhalation every four hours as needed as needed for dyspnea 08/17/20 19 2019 Inactive 60/box. This refill negates all other refills of this medication. Please do not fill early. Please do not auto refill. Symbicort 160 mcg-4.5 mcg/actuation HFA aerosol inhaler RxNorm: 7707107 2 Puff(s) INH BID 08/17/20 No Stop Date Active Alcohol Prep Pads RxNorm: 818641 1 Patch TOP QAM 08/17/20 19 2019 Inactive True Metrix Glucose Test Strip RxNorm: 1 Test Strips Miscellaneous QAM 08/09/20 19 2019 Inactive 100/container Ventolin HFA 90 mcg/actuation aerosol inhaler RxNorm: 556960 2 Puff(s) INH QID 08/09/20 19 2019 Inactive Please do not fill early. Please do not auto refill. This refill negates all other refills of this medication atorvastatin 40 mg tablet RxNorm: 737279 1 Tablet(s) Oral every day 07/04/20 19 2019 Inactive levmetamfetamine 50 mg nasal inhaler RxNorm: 1 Unit(s) NASAL Q3-4H Do not use more than every 3 hours or 8 times/24hours 06/26/20 19 2021 Inactive Please do not auto refill. This refill negates all other refills of this medication diclofenac sodium 75 mg tablet,delayed release RxNorm: 699953 1 Tablet(s) PO BID 06/26/20 19 2019 Inactive This refill negates all other refills of this medication buspirone 7.5 mg tablet RxNorm: 771448 1 Tablet(s) PO BID 06/26/20 19 2020 Inactive This refill negates all other refills of this medication hydrochlorothiazide 12.5 mg tablet RxNorm: 935965 1 Tablet(s) PO QAM 06/26/20 19 2019 Inactive Ventolin HFA 90 mcg/actuation aerosol inhaler RxNorm: 357761 2 Puff(s) INH QID 06/26/20 19 2018 Inactive Please do not fill early. Please do not auto refill. This refill negates all other refills of this medication Singulair 10 mg tablet RxNorm: 773425 1 Tablet(s) PO daily 06/26/20 19 2019 Inactive This refill negates all other refills of this medication cetirizine 10 mg tablet RxNorm: 6650022 1 Tablet(s) PO daily 06/26/20 19 2019 Inactive This refill negates all other refills of this medication. Please do not auto refill levothyroxine 50 mcg tablet RxNorm: 362657 1 Tablet(s) PO daily 06/26/20 19 2019 Inactive This refill negates all other refills of this medication ranitidine 150 mg tablet RxNorm: 660903 1 Tablet(s) PO BID 06/26/20 19 2018 Inactive This refill negates all other refills of this medication Calcium 600-D3 Plus (mag-zinc) 600 mg calcium-800 unit-50 mg tablet RxNorm: 1 Tablet(s) PO daily take an additonal tablet for itching. 06/26/20 19 2018 Inactive This refill negates all other refills of this medication albuterol sulfate 2.5 mg/3 mL (0.083 %) solution for nebulization RxNorm: 236250 1 Vial INH QID 06/26/20 19 2018 Inactive 60/box. This refill negates all other refills of this medication. Please do not fill early. Please do not auto refill. lisinopril 2.5 mg tablet RxNorm: 374800 1 Tablet(s) PO daily 06/21/20 19 2019 Inactive gabapentin 300 mg capsule RxNorm: 809003 1 Capsule(s) PO TID 06/21/20 19 2019 Inactive atorvastatin 20 mg tablet RxNorm: 599578 1 Tablet(s) PO QHS 06/07/20 19 2018 Inactive This refill negates all other refills of this medication TRUEplus Lancets 30 gauge RxNorm: 1 Lancets Miscellaneous QAM 05/29/20 19 2018 Inactive 100/box gabapentin 300 mg capsule RxNorm: 385753 1 Capsule(s) PO TID 05/03/20 19 2018 Inactive Flnickolas Complete (iron) 18 mg iron chewable tablet RxNorm: 1 Tablet(s) PO daily 04/04/202021 Inactive This refill negates all other refills of this medication gabapentin 300 mg capsule RxNorm: 955874 1 Capsule(s) PO TID as needed 02/01/202018 Inactive True Metrix Glucose Test Strip RxNorm: 1 Test Strips Miscellaneous QAM 02/01/20 19 2018 Inactive 100/container Alcohol Prep Pads RxNorm: 904639 1 Patch TOP QAM 02/01/202018 Inactive TRUEplus Lancets 30 gauge RxNorm: 1 Lancets Miscellaneous QAM 02/01/202018 Inactive 100/box lisinopril 2.5 mg tablet RxNorm: 471133 1 Tablet(s) PO daily 12/28/192018 Inactive ranitidine 150 mg tablet RxNorm: 495968 1 Tablet(s) PO BID 10/21/192018 Inactive This refill negates all other refills of this medication albuterol sulfate 2.5 mg/3 mL (0.083 %) solution for nebulization RxNorm: 691439 1 Vial INH QID 10/21/192018 Inactive 60/box. [...] this medication gabapentin 300 mg capsule RxNorm: 318130 1 Capsule(s) PO TID as needed 10/21/192018 Inactive atorvastatin 20 mg tablet RxNorm: 113214 1 Tablet(s) PO QHS 10/21/192018 Inactive This refill negates all other refills of this medication trazodone 50 mg tablet RxNorm: 916994 1 Tablet(s) PO QHS 10/21/19 19 2018 Inactive This refill negates all other refills of this medication Ventolin HFA 90 mcg/actuation aerosol inhaler RxNorm: 590135 2 Puff(s) INH QID 10/21/19 19 2018 Inactive Please do not fill early. Please do not auto refill. This refill negates all other refills of this medication Calcium 600-D3 Plus 600 mg calcium-800 unit-50 mg tablet RxNorm: 1 Tablet(s) PO daily take an additonal tablet for itching. 10/21/192018 Inactive This refill negates all other refills of this medication Singulair 10 mg tablet RxNorm: 262958 1 Tablet(s) PO daily 10/21/192018 Inactive This refill negates all other refills of this medication buspirone 7.5 mg tablet RxNorm: 521874 1 Tablet(s) PO BID 10/21/192018 Inactive This refill negates all other refills of this medication diclofenac sodium 75 mg tablet,delayed release RxNorm: 249783 1 Tablet(s) PO BID 10/21/192018 Inactive This refill negates all other refills of this medication hydrochlorothiazide 12.5 mg tablet RxNorm: 869057 1 Tablet(s) PO QAM 10/21/192018 Inactive metoprolol succinate ER 50 mg tablet,extended release 24 hr RxNorm: 786731 1 Tablet(s) PO daily 10/21/192018 Inactive This refill negates all other refills of this medication levothyroxine 50 mcg tablet RxNorm: 887151 1 Tablet(s) PO daily 10/21/192018 Inactive This refill negates all other refills of this medication cetirizine 10 mg tablet RxNorm: 9480421 1 Tablet(s) PO daily 10/21/19 19 2018 Inactive This refill negates all other refills of this medication. Please do not auto refill Flintstones Complete (iron) 18 mg iron chewable tablet RxNorm: 1 Tablet(s) PO daily 10/21/19 19 2018 Inactive This refill negates all other refills of this medication buspirone 7.5 mg tablet RxNorm: 975798 1 Tablet(s) PO BID 10/12/19 19 2018 Inactive cetirizine 10 mg tablet RxNorm: 6587167 1 Tablet(s) PO daily 09/28/20 18 2018 Inactive Guaiasorb DM 10 mg-100 mg/5 mL oral liquid RxNorm: 677308 10 Milliliter(s) PO As needed every 4 hr 09/24/20 18 2018 Inactive Vicks Vaporub 4.7 %-1.2 %-2.6 % topical ointment RxNorm: 6272878 1 Application TOP TID 09/24/20 18 2018 Inactive levmetamfetamine 50 mg nasal inhaler RxNorm: 1 Unit(s) NASAL Q3-4H 09/24/20 18 2017 Inactive sertraline 50 mg tablet RxNorm: 077408 1 Tablet(s) PO daily 09/09/20 18 2018 Inactive Please note dose trazodone 50 mg tablet RxNorm: 993365 1 Tablet(s) PO QHS 09/06/20 18 2018 Inactive sertraline 50 mg tablet RxNorm: 119340 1 Tablet(s) PO daily 09/06/20 18 2017 Inactive amoxicillin 500 mg tablet RxNorm: 520389 1 Tablet(s) PO Q12H 08/31/20 18 2017 Inactive albuterol sulfate 2.5 mg/3 mL (0.083 %) solution for nebulization RxNorm: 212273 1 Vial INH QID 08/10/20 18 2018 Inactive 60/box. Please do not fill early. Please do not auto refill. Prozac 10 mg capsule RxNorm: 802701 1 Capsule(s) PO daily 08/09/20 18 2017 Inactive buspirone 7.5 mg tablet RxNorm: 223210 1 Tablet(s) PO BID 08/09/20 18 2018 Inactive gabapentin 300 mg capsule RxNorm: 195850 1 Capsule(s) PO TID as needed 08/01/20 18 2018 Inactive hydrochlorothiazide 12.5 mg tablet RxNorm: 814704 1 Tablet(s) PO QAM 08/01/20 18 2018 Inactive ranitidine 150 mg tablet RxNorm: 805949 1 Tablet(s) PO BID 08/01/20 18 2018 Inactive Macrobid 100 mg capsule RxNorm: 948187 1 Capsule(s) PO Q12H 06/21/20 18 2017 Inactive Singulair 10 mg tablet RxNorm: 629235 1 Tablet(s) PO daily 06/14/20 18 2018 Inactive Ventolin HFA 90 mcg/actuation aerosol inhaler RxNorm: 8147794 2 Puff(s) INH QID 06/14/20 18 2018 Inactive Singulair 10 mg tablet RxNorm: 426624 1 Tablet(s) PO daily 06/14/20 18 2017 Inactive buspirone 7.5 mg tablet RxNorm: 672845 1 Tablet(s) PO BID 06/14/20 18 2017 Inactive Prozac 10 mg capsule RxNorm: 074817 1 Capsule(s) PO daily 06/14/20 18 2017 Inactive Neilmed Pediatric Sinus Rinse Refill packet RxNorm: 1 Unit Dose NASAL PRN 05/31/20 18 2021 Inactive diclofenac sodium 75 mg tablet,delayed release RxNorm: 001692 1 Tablet(s) PO BID 05/31/20 18 2017 Inactive lisinopril 2.5 mg tablet RxNorm: 783366 1 Tablet(s) PO daily 05/31/20 18 2017 Inactive metoprolol succinate ER 50 mg tablet,extended release 24 hr RxNorm: 243542 1 Tablet(s) PO daily 05/31/20 18 2017 Inactive levothyroxine 50 mcg tablet RxNorm: 686684 1 Tablet(s) PO daily 05/31/20 18 2017 Inactive TRUEplus Lancets 30 gauge RxNorm: 1 Lancets Miscellaneous QAM 05/31/20 18 2017 Inactive 100/box Ventolin HFA 90 mcg/actuation aerosol inhaler RxNorm: 106302 2 Puff(s) INH QID 05/31/20 18 2017 Inactive Aleve 220 mg capsule RxNorm: 1571447 1 Capsule(s) PO BID 05/31/20 18 2018 Inactive ranitidine 150 mg tablet RxNorm: 169540 1 Tablet(s) PO BID 05/31/20 18 2017 Inactive gabapentin 300 mg capsule RxNorm: 781811 1 Capsule(s) PO TID as needed 05/31/20 18 2017 Inactive atorvastatin 20 mg tablet RxNorm: 567475 1 Tablet(s) PO QHS 05/31/20 18 2017 Inactive True Metrix Glucose Test Strip RxNorm: 1 Test Strips Miscellaneous QA 05/31/20 18 2017 Inactive 50/container Calcium 600-D3 Plus 600 mg calcium-800 unit-50 mg tablet RxNorm: 1 Tablet(s) PO daily take an additonal tablet for itching. 05/31/20 18 2017 Inactive hydrochlorothiazide 12.5 mg tablet RxNorm: 008202 1 Tablet(s) PO QAM 05/31/20 18 2017 Inactive Flintstones Complete (iron) 18 mg iron chewable tablet RxNorm: 1 Tablet(s) PO daily 05/31/20 18 2017 Inactive d-mannose oral powder RxNorm: PO 18 2021 Inactive True Metrix Glucose Meter RxNorm: miscellaneous 08/17/20 19 2018 Inactive sertraline 50 mg tablet RxNorm: 448232 1 Tablet(s) PO daily 11/28/19 20 2019 Inactive loperamide 2 mg tablet RxNorm: 189919 oral 09/29/20 19 2018 Inactive Symbicort 160 mcg-4.5 mcg/actuation HFA aerosol inhaler RxNorm: 0675096 2 Puff(s) INH BID 08/17/20 19 2018 Inactive Medication Administered No Medication Administered data Procedures Procedure Codes Date Tobacco Assessment/Screening CPT-4: TCA Fall Risk Assessment SNOMED CT: 88547787 4 CPT-4: DFRA 01/01/2020 Functional Assessment CPT-4: DFA 01/01/2020 [facility] Assessment CPT-4: DSWA 11/04 Patient Health Questionnaire CPT-4: DPHQ [facility] [place] Assessment CPT-4: DSWA 10/03 Hypertension CPT-4: HTN 10/17/2019 Fall Risk Assessment SNOMED CT: 29760747 4 CPT-4: DFRA 09/19/2019 Functional Assessment CPT-4: DFA 09/19/2019 Urinalysis, dip stick CPT-4: 06884 06/21/2019 Tobacco Assessment/Screening CPT-4: TCA Patient Health Questionnaire CPT-4: DPHQ AHA/REBECCA Classification Assessment CPT-4: DAHA 04/25/2019 Controlled Substance Report CPT-4: CTRSU 04/03 Urinalysis, dip stick CPT-4: 41879 03/28/2019 Urinalysis, dip stick CPT-4: 64265 03/28/2019 [id number] CPT-4: 36368 Unknown [id number] CPT-4: 07801 Unknown Gynecology Referral SNOMED CT: 442338856 CPT-4: R14 Unknown Vital Signs Date Vital 02/14/2020 BMI: 54.5 Code: 97250-8 Height: 4'11 Code: 8302-2 Weight: 270 lbs Code: 19226-4 Reason For Visit Reason For Visit Effective Dates Notes hypertension 02/14/2020 diabetes mellitus 02/14/2020 Interim health update 02/14/2020 Encounters Encounter Performer Location Location Address Codes [place] [id number]) (EST PT) EXPANDED PROBLEM FOCUSED TELEHEALTH VISIT Diagnosis: Type 2 diabetes mellitus with peripheral neuropathy[ICD10: E11.42] Diagnosis: Essential (primary) hypertension[ICD10 : I10] Diagnosis: Abrasion of toe[ICD10: S90.416A] Diagnosis: Encounter for screening for malignant neoplasm of cervix[ICD10: Z12.4] Diagnosis: Obstructive sleep apnea (adult) (pediatric)[ICD10: G47.33] Anna Culver [place] [facility] [id number] [place] [address] CPT-4: 78079 02/14/2020 Plan of Care Planned Activity Notes Codes [...] A1C 6.0 07/04/2019 Hgb A1C 5.6 10/17/2019 [facility] [place] 04/11-instructed on good daily foot care [...] anxiety and depressed mood routine follow up [facility] [place] E03.9-244.9 Hypothyroidism, unspecified cont levothyroxine N39.46-788.33 Mixed incontinence use of incontinence supplies Z68.43-V85.43 Adult BMI 50.0-59.9 kg/sq m Credit Support Specialist to visit to discuss portion control trying to avoid soda, drinking sparkling flavored pal and occasional Heike Green Tea and honey Z12.4-V76.2 Encounter for screening for malignant neoplasm of cervix last 2018 will request records Z01.89-V72.85 Encounter for screening [...] verbalized understanding of all above topics. 02/14/2020 Patient Education: Patient Medication Summary Completed 02/14/2020 Patient Education: Hypertension Completed 02/14/2020 Patient Education: Diabetes Complete d 02/14/2020 Appointment: Anna Culver WPtel: [address] [place] [address] E452 01/24/2020 Appointment: Anna Culver WPtel: [address] [place] [address] E452 01/01/2020 Appointment: Anna Culver WPtel: [address] [place] [address] E452 11/28/2019 Appointment: Anna Culver WPtel: [address] [place] [address] E452 10/17/2019 Appointment: Anna Culver WPtel: [address] [place] [address] E452 09/19/2019 Appointment: Sudha Hernadez WPtel: [address] [place] [address] [id number] E452 07/04/2019 Appointment: Sudha Hernadez WPtel: [address] [facility] [id number] E452 06/21/2019 Appointment: Charlene Oropeza WPtel: [address] [place] [address] [id number] E452 05/24/2019 Appointment: Mallory Delgado E452 04/27/2019 Appointment: Charlene Oropeza WPtel: [address] [place] [address] [id number] E452 04/25/2019 Appointment: Rasta Palafox WPtel: [address] [place] [address] [id number] E452 03/28/2019 Appointment: Rasta Palafox WPtel: [address] [place] [address] [id number] E452 02/14/2019 Appointment: Rasta Palafox WPtel: [address] [place] [address] [id number] E452 01/31/2019 Appointment: Rasta Palafox WPtel: [address] [place] [address] [id number] [id number] 12/27/2018 Referral: Pending Gynecology Referral Information Referral Processed Referral: Pending Pulmonolog y Referral Information Referral Processed Referral: Pending Psychiatry Referral Information Referral Initiated Referral: Pending Respirator y Services Referral Information Referral Initiated Referral: Pending Ophthalmology Referral Information Referral Initiated Referral: [facility] WPtel: [address] [place] [address] Business Analytics Manager placed a call out to the patient to notify her that it has been recommended that she be seen by a urologist. Patient agreed to be seen, does not have a provider of choice and no transportation issues. Business Analytics Manager faxed referral and clinical notes to [facility] in [place], [place] near the patient's home. Patient to [...] seen and prefers a provider in the [place] or [place] area. Business Analytics Manager placed a call out to everyone listed in the area and the only location that was able to accept the patient's insurance was [place] [address] [place] [address] and spoke with Maylin. Maylin asked that the patient's referral, face sheet and visit notes be faxed to . Business Analytics Manager faxed over requested documents. Patient appointment confirmation letter generated and mailed to her home address. Patient to call to schedule an appointment. Processed Referral: [facility] WPtel: [address] [place] [address] Patient notified that it has been advised that she be seen by Neurology. Patient agreed to be seen and prefers to be seen by a provider in the [place], [place] area. Patient denies any concerns with transportation, and prefers to schedule her own appointment. Business Analytics Manager placed a call out to [place] [...] Information Referral Initiated Instructions Comment Date . patient with I [...] anxiety and depressed mood routine follow up [facility] [place] E03.9-244.9 Hypothyroidism, unspecified cont levothyroxine N39.46-788.33 Mixed incontinence use of incontinence supplies Z68.43-V85.43 Adult BMI 50.0-59.9 kg/sq m Credit Support Specialist to visit to discuss portion control trying to avoid soda, drinking sparkling flavored pal and occasional Heike Green Tea and honey Z12.4-V76.2 Encounter for screening for malignant neoplasm of cervix last 2018 will request records Z01.89-V72.85 Encounter for screening [...]
--- OUTSIDE RECORDS SUMMARY | 2023-12-07 02:11 | XMS_ITS | CCD ---
Author Name Leena Culver NP Address [id number] [place] [address] [address] [place] [address] Phone Organization [facility] Phone Care Team Providers Care Digital Ad Trafficker Name Role Phone Anna Culver NP Primary Care Provider Unav ailable Unavailable Chronic Care Management Unavaila ble Summary Purpose DataExchange Insurance Providers Payer name Policy type / Coverage type Covered green party ID Effective Begin Date Effective End Date SUKI MAYO [id number] Unknown Unknown Family history Mother Diagnosis Age [...] Unknown Disability 05/31/[address]: 635726837 Has never s moked or chewed tobacco 05/31/[address]: 547722405 Never drinks alco hol 05/31/2018 Has the [...] neuropathy ICD-10: E11.42 ICD-9: 250.60 11/28/2019 Active Adult BMI 50.0-59.9 kg/sq m ICD-10: [...] use ICD-10: Z01.89 ICD-9: V72.85 01/01/2020 Active [facility] [place] [facility] ICD-10: H10.029 ICD-9: 372.03 12/29/2019 Active Syncope and collapse ICD-10: R55 ICD-9: 780.2 01/01/2020 Active Fecal incontinence ICD-10: R15.9 ICD-9: 787.60 12/15/2019 Active Mixed incontinence ICD-10: N39.46 ICD-9: 788.33 05/24/2019 Active Diarrhea ICD-10: R19.7 ICD-9: 787.91 09/29/2019 Active Adjustment disorder with mix ed anxiety and depressed mood ICD-10: F43.23 ICD-9: 309.28 09/05/2018 Active Type 2 diabetes mellitus wit [...] ICD-10: UXZ.01 ICD-9: XZ0.1 04/27/2019 Active 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 ICD-10: Z79.899 [...] ICD-10: R51 ICD-9: 784.0 10/03/2018 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 (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) ICD-10: Z79.1 ICD-9: V58.64 06/13/2018 Active Medications Medication Codes Instructions Start Date Stop Date Status Fill Instructions Sudafed 12 Hour 120 mg tablet,extended release RxNorm: 3849210 TAKE 1 TABLET BY MOUTH EVERY 12 HOURS NEEDED 03/14/20 20 2019 Inactive True Metrix Glucose Test Strip RxNorm: 1 Test Strips Miscellaneous every morning 03/13/20 20 2019 Inactive 100/container loperamide 2 mg tablet RxNorm: 434358 1 Tablet(s) Oral as needed take one tablet after each loose stool, maximum of 8 tablets in 24 hours 02/22/20 20 2019 Inactive True Metrix Glucose Test Strip RxNorm: 1 Test Strips Miscellaneous QAM 02/22/20 20 2019 Inactive 100/container cetirizine 10 mg tablet RxNorm: 2786106 1 Tablet(s) PO daily 01/17/20 20 2019 Inactive levothyroxine 50 mcg tablet RxNorm: 001765 1 Tablet(s) PO daily 01/17/20 20 2020 Inactive gabapentin 300 mg capsule RxNorm: 486198 1 Capsule(s) PO TID 01/17/20 20 2019 Inactive loperamide 2 mg tablet RxNorm: 521297 1 Tablet(s) Oral as needed take one tablet after each loose stool, maximum of 8 tablets in 24 hours 01/17/20 20 2019 Inactive quetiapine 100 mg tablet RxNorm: 440509 1 Tablet(s) Oral every night at bedtime 01/17/20 20 2019 Inactive lisinopril 2.5 mg tablet RxNorm: 556738 1 Tablet(s) PO daily 01/15/20 20 2020 Inactive Singulair 10 mg tablet RxNorm: 451437 1 Tablet(s) PO daily 01/15/20 20 2020 Inactive levothyroxine 50 mcg tablet RxNorm: 340410 1 Tablet(s) PO daily 01/15/20 20 2019 Inactive gabapentin 300 mg capsule RxNorm: 431919 1 Capsule(s) PO TID 01/15/20 20 2019 Inactive cetirizine 10 mg tablet RxNorm: 2544835 1 Tablet(s) PO daily 01/15/20 20 2019 Inactive gentamicin 0.3 % eye drops RxNorm: 345054 1 Drop(s) ophthalmic (eye) four times a day 12/29/19 20 2019 Inactive gentamicin 0.3 % eye drops RxNorm: 596599 1 Drop(s) ophthalmic (eye) four times a day 12/29/19 20 2019 Inactive gentamicin 0.3 % eye drops RxNorm: 856389 1 Drop(s) ophthalmic (eye) four times a day 12/29/19 20 2019 Inactive hydrochlorothiazide 25 mg tablet RxNorm: 465687 1 Tablet(s) Oral every day 12/21/19 20 2019 Inactive Sudafed 12 Hour 120 mg tablet,extended release RxNorm: 4479336 TAKE (1) TABLET BY MOUTH EVERY 12 HOURS NEEDED 12/21/19 20 2019 Inactive loperamide 2 mg tablet RxNorm: 469484 1 Tablet(s) Oral as needed take one tablet after each loose stool, maximum of 8 tablets in 24 hours 12/11/19 20 2019 Inactive loperamide 2 mg tablet RxNorm: 061987 1 Tablet(s) Oral as needed take one tablet after each loose stool, maximum of 8 tablets in 24 hours 12/11/19 20 2019 Inactive atorvastatin 40 mg tablet RxNorm: 382313 1 Tablet(s) Oral every day 11/29/19 20 2020 Inactive sertraline 100 mg tablet RxNorm: 002391 1 Tablet(s) Oral 11/28/19 20 2019 Inactive quetiapine 100 mg tablet RxNorm: 524988 1 Tablet(s) Oral every night at bedtime 11/28/19 20 2019 Inactive omeprazole 20 mg capsule,delayed release RxNorm: 810996 1 Capsule(s) Oral every day 11/20/19 20 2019 Inactive amoxicillin 250 mg capsule RxNorm: 610227 1 Capsule(s) Oral three times a day 11/07/19 20 2019 Inactive multivitamin with iron-mineral tablet RxNorm: 1 Tablet(s) Oral every day 10/29/19 20 2021 Inactive cetirizine 10 mg tablet RxNorm: 3537624 1 Tablet(s) PO daily 10/20/19 20 2019 Inactive This refill negates all other refills of this medication. Please do not auto refill Singulair 10 mg tablet RxNorm: 262589 1 Tablet(s) PO daily 10/20/19 20 2019 Inactive This refill negates all other refills of this medication gabapentin 300 mg capsule RxNorm: 299482 1 Capsule(s) PO TID 10/20/19 20 2019 Inactive lisinopril 2.5 mg tablet RxNorm: 103845 1 Tablet(s) PO daily 10/20/19 20 2019 Inactive levothyroxine 50 mcg tablet RxNorm: 445721 1 Tablet(s) PO daily 10/20/192019 Inactive This refill negates all other refills of this medication fenugreek seed extract 500 mg capsule RxNorm: 1 Capsule(s) Oral three times a day 10/17/19 20 2021 Inactive hydrochlorothiazide 25 mg tablet RxNorm: 008102 1 Tablet(s) Oral every day 10/17/192019 Inactive Alcohol Prep Pads RxNorm: 462795 1 Patch TOP QAM 10/16/19 20 2020 Inactive loperamide 2 mg tablet RxNorm: 217533 1 Tablet(s) Oral as needed take one [...] 2019 Inactive hydrochlorothiazide 25 mg tablet RxNorm: 226739 1 Tablet(s) Oral every day 09/19/202019 Inactive Sudafed 12 Hour 120 mg tablet,extended release RxNorm: 9353315 1 Tablet(s) Oral every 12 hours as needed 09/11/20 19 2018 Inactive omeprazole 20 mg capsule,delayed release RxNorm: 765055 1 Capsule(s) Oral every day 09/07/20 19 2019 Inactive Sudafed 12 Hour 120 mg tablet,extended release RxNorm: 3704041 1 Tablet(s) Oral every 12 hours as needed 09/04/20 19 2018 Inactive pantoprazole 40 mg tablet,delayed release RxNorm: 231500 1 Tablet(s) Oral every day 08/24/20 19 2018 Inactive discontinue any other H2Blkr. and PPI albuterol sulfate 2.5 mg/3 mL (0.083 %) solution for nebulization RxNorm: 609811 1 Vial Inhalation every four hours as needed as needed for dyspnea 08/17/20 19 2019 Inactive 60/box. This refill negates all other refills of this medication. Please do not fill early. Please do not auto refill. Symbicort 160 mcg-4.5 mcg/actuation HFA aerosol inhaler RxNorm: 2565133 2 Puff(s) INH BID 08/17/20 19 No Stop Date Active Alcohol Prep Pads RxNorm: 795470 1 Patch TOP QAM 08/17/20 19 2019 Inactive Ventolin HFA 90 mcg/actuation aerosol inhaler RxNorm: 220104 2 Puff(s) INH QID 08/09/20 19 2019 Inactive Please do not fill early. Please do not auto refill. This refill negates all other refills of this medication True Metrix Glucose Test Strip RxNorm: 1 Test Strips Miscellaneous QAM 08/09/20 19 2019 Inactive 100/container atorvastatin 40 mg tablet RxNorm: 631770 1 Tablet(s) Oral every day 07/04/20 19 2019 Inactive levmetamfetamine 50 mg nasal inhaler RxNorm: 1 Unit(s) NASAL Q3-4H Do not use more than every 3 hours or 8 times/24hours 06/26/20 19 2021 Inactive Please do not auto refill. This refill negates all other refills of this medication diclofenac sodium 75 mg tablet,delayed release RxNorm: 225951 1 Tablet(s) PO BID 06/26/20 19 2019 Inactive This refill negates all other refills of this medication buspirone 7.5 mg tablet RxNorm: 119968 1 Tablet(s) PO BID 06/26/20 19 2020 Inactive This refill negates all other refills of this medication hydrochlorothiazide 12.5 mg tablet RxNorm: 003602 1 Tablet(s) PO QAM 06/26/20 19 2019 Inactive Ventolin HFA 90 mcg/actuation aerosol inhaler RxNorm: 692920 2 Puff(s) INH QID 06/26/20 19 2018 Inactive Please do not fill early. Please do not auto refill. This refill negates all other refills of this medication Singulair 10 mg tablet RxNorm: 453030 1 Tablet(s) PO daily 06/26/20 19 2019 Inactive This refill negates all other refills of this medication cetirizine 10 mg tablet RxNorm: 9972822 1 Tablet(s) PO daily 06/26/20 19 2019 Inactive This refill negates all other refills of this medication. Please do not auto refill levothyroxine 50 mcg tablet RxNorm: 399332 1 Tablet(s) PO daily 06/26/20 19 2019 Inactive This refill negates all other refills of this medication ranitidine 150 mg tablet RxNorm: 390582 1 Tablet(s) PO BID 06/26/20 19 2018 Inactive This refill negates all other refills of this medication Calcium 600-D3 Plus (mag-zinc) 600 mg calcium-800 unit-50 mg tablet RxNorm: 1 Tablet(s) PO daily take an additonal tablet for itching. 06/26/20 19 2018 Inactive This refill negates all other refills of this medication albuterol sulfate 2.5 mg/3 mL (0.083 %) solution for nebulization RxNorm: 625920 1 Vial INH QID 06/26/20 19 2018 Inactive 60/box. This refill negates all other refills of this medication. Please do not fill early. Please do not auto refill. lisinopril 2.5 mg tablet RxNorm: 113982 1 Tablet(s) PO daily 06/21/20 19 2019 Inactive gabapentin 300 mg capsule RxNorm: 141470 1 Capsule(s) PO TID 06/21/20 19 2019 Inactive atorvastatin 20 mg tablet RxNorm: 317395 1 Tablet(s) PO QHS 06/07/202018 Inactive This refill negates all other refills of this medication TRUEplus Lancets 30 gauge RxNorm: 1 Lancets Miscellaneous QAM 05/29/20 19 2018 Inactive 100/box gabapentin 300 mg capsule RxNorm: 499305 1 Capsule(s) PO TID 05/03/20 19 2018 Inactive Flintstones Complete (iron) 18 mg iron chewable tablet RxNorm: 1 Tablet(s) PO daily 04/04/202021 Inactive This refill negates all other refills of this medication gabapentin 300 mg capsule RxNorm: 556176 1 Capsule(s) PO TID as needed 02/01/20 19 2018 Inactive True Metrix Glucose Test Strip RxNorm: 1 Test Strips Miscellaneous QA 02/01/20 19 2018 Inactive 100/container Alcohol Prep Pads RxNorm: 641818 1 Patch TOP QA 02/01/20 19 2018 Inactive TRUEplus Lancets 30 gauge RxNorm: 1 Lancets Miscellaneous QA 02/01/20 19 2018 Inactive 100/box lisinopril 2.5 mg tablet RxNorm: 127089 1 Tablet(s) PO daily 12/28/19 19 2018 Inactive ranitidine 150 mg tablet RxNorm: 711473 1 Tablet(s) PO BID 10/21/192018 Inactive This refill negates all other refills of this medication albuterol sulfate 2.5 mg/3 mL (0.083 %) solution for nebulization RxNorm: 514794 1 Vial INH QID 10/21/192018 Inactive 60/box. [...] this medication gabapentin 300 mg capsule RxNorm: 350297 1 Capsule(s) PO TID as needed 10/21/192018 Inactive atorvastatin 20 mg tablet RxNorm: 608627 1 Tablet(s) PO QHS 10/21/192018 Inactive This refill negates all other refills of this medication trazodone 50 mg tablet RxNorm: 713272 1 Tablet(s) PO QHS 10/21/192018 Inactive This refill negates all other refills of this medication Ventolin HFA 90 mcg/actuation aerosol inhaler RxNorm: 621346 2 Puff(s) INH QID 10/21/192018 Inactive Please do not fill early. Please do not auto refill. This refill negates all other refills of this medication Calcium 600-D3 Plus 600 mg calcium-800 unit-50 mg tablet RxNorm: 1 Tablet(s) PO daily take an additonal tablet for itching. 10/21/192018 Inactive This refill negates all other refills of this medication Singulair 10 mg tablet RxNorm: 933993 1 Tablet(s) PO daily 10/21/192018 Inactive This refill negates all other refills of this medication buspirone 7.5 mg tablet RxNorm: 504354 1 Tablet(s) PO BID 10/21/192018 Inactive This refill negates all other refills of this medication diclofenac sodium 75 mg tablet,delayed release RxNorm: 807859 1 Tablet(s) PO BID 10/21/19 19 2018 Inactive This refill negates all other refills of this medication hydrochlorothiazide 12.5 mg tablet RxNorm: 288774 1 Tablet(s) PO QAM 10/21/192018 Inactive metoprolol succinate ER 50 mg tablet,extended release 24 hr RxNorm: 669689 1 Tablet(s) PO daily 10/21/19 19 2018 Inactive This refill negates all other refills of this medication levothyroxine 50 mcg tablet RxNorm: 858093 1 Tablet(s) PO daily 10/21/19 19 2018 Inactive This refill negates all other refills of this medication cetirizine 10 mg tablet RxNorm: 8575330 1 Tablet(s) PO daily 10/21/192018 Inactive This refill negates all other refills of this medication. Please do not auto refill Flintstones Complete (iron) 18 mg iron chewable tablet RxNorm: 1 Tablet(s) PO daily 10/21/192018 Inactive This refill negates all other refills of this medication buspirone 7.5 mg tablet RxNorm: 817270 1 Tablet(s) PO BID 10/12/192018 Inactive cetirizine 10 mg tablet RxNorm: 2642450 1 Tablet(s) PO daily 09/28/20 18 2018 Inactive Guaiasorb DM 10 mg-100 mg/5 mL oral liquid RxNorm: 938085 10 Milliliter(s) PO As needed every 4 hr 09/24/20 18 2018 Inactive Vicks Vaporub 4.7 %-1.2 %-2.6 % topical ointment RxNorm: 3598840 1 Application TOP TID 09/24/20 18 2018 Inactive levmetamfetamine 50 mg nasal inhaler RxNorm: 1 Unit(s) NASAL Q3-4H 09/24/20 18 2017 Inactive sertraline 50 mg tablet RxNorm: 858117 1 Tablet(s) PO daily 09/09/20 18 2018 Inactive Please note dose trazodone 50 mg tablet RxNorm: 493165 1 Tablet(s) PO QHS 09/06/20 18 2018 Inactive sertraline 50 mg tablet RxNorm: 106591 1 Tablet(s) PO daily 09/06/20 18 2017 Inactive amoxicillin 500 mg tablet RxNorm: 071168 1 Tablet(s) PO Q12H 08/31/20 18 2017 Inactive albuterol sulfate 2.5 mg/3 mL (0.083 %) solution for nebulization RxNorm: 953257 1 Vial INH QID 08/10/20 18 2018 Inactive 60/box. Please do not fill early. Please do not auto refill. Prozac 10 mg capsule RxNorm: 769348 1 Capsule(s) PO daily 08/09/20 18 2017 Inactive buspirone 7.5 mg tablet RxNorm: 549833 1 Tablet(s) PO BID 08/09/20 18 2018 Inactive gabapentin 300 mg capsule RxNorm: 724345 1 Capsule(s) PO TID as needed 08/01/20 18 2018 Inactive hydrochlorothiazide 12.5 mg tablet RxNorm: 107550 1 Tablet(s) PO QAM 08/01/20 18 2018 Inactive ranitidine 150 mg tablet RxNorm: 235466 1 Tablet(s) PO BID 08/01/20 18 2018 Inactive Macrobid 100 mg capsule RxNorm: 633019 1 Capsule(s) PO Q12H 06/21/20 18 2017 Inactive Singulair 10 mg tablet RxNorm: 362783 1 Tablet(s) PO daily 06/14/20 18 2018 Inactive Ventolin HFA 90 mcg/actuation aerosol inhaler RxNorm: 4981349 2 Puff(s) INH QID 06/14/20 18 2018 Inactive Singulair 10 mg tablet RxNorm: 717417 1 Tablet(s) PO daily 06/14/20 18 2017 Inactive buspirone 7.5 mg tablet RxNorm: 487357 1 Tablet(s) PO BID 06/14/20 18 2017 Inactive Prozac 10 mg capsule RxNorm: 213473 1 Capsule(s) PO daily 06/14/20 18 2017 Inactive Neilmed Pediatric Sinus Rinse Refill packet RxNorm: 1 Unit Dose NASAL PRN 05/31/20 18 2021 Inactive diclofenac sodium 75 mg tablet,delayed release RxNorm: 782862 1 Tablet(s) PO BID 05/31/20 18 2017 Inactive lisinopril 2.5 mg tablet RxNorm: 900891 1 Tablet(s) PO daily 05/31/20 18 2017 Inactive metoprolol succinate ER 50 mg tablet,extended release 24 hr RxNorm: 672171 1 Tablet(s) PO daily 05/31/20 18 2017 Inactive levothyroxine 50 mcg tablet RxNorm: 621887 1 Tablet(s) PO daily 05/31/20 18 2017 Inactive TRUEplus Lancets 30 gauge RxNorm: 1 Lancets Miscellaneous QAM 05/31/20 18 2017 Inactive 100/box Ventolin HFA 90 mcg/actuation aerosol inhaler RxNorm: 129675 2 Puff(s) INH QID 05/31/20 18 2017 Inactive Aleve 220 mg capsule RxNorm: 2384957 1 Capsule(s) PO BID 05/31/20 18 2018 Inactive ranitidine 150 mg tablet RxNorm: 813032 1 Tablet(s) PO BID 05/31/20 18 2017 Inactive gabapentin 300 mg capsule RxNorm: 479829 1 Capsule(s) PO TID as needed 05/31/20 18 2017 Inactive atorvastatin 20 mg tablet RxNorm: 737794 1 Tablet(s) PO QHS 05/31/20 18 2017 Inactive True Metrix Glucose Test Strip RxNorm: 1 Test Strips Miscellaneous QAM 05/31/20 18 2017 Inactive 50/container Calcium 600-D3 Plus 600 mg calcium-800 unit-50 mg tablet RxNorm: 1 Tablet(s) PO daily take an additonal tablet for itching. 05/31/20 18 2017 Inactive hydrochlorothiazide 12.5 mg tablet RxNorm: 040096 1 Tablet(s) PO QAM 05/31/20 18 2017 Inactive Flintstones Complete (iron) 18 mg iron chewable tablet RxNorm: 1 Tablet(s) PO daily 05/31/20 18 2017 Inactive d-mannose oral powder RxNorm: PO 18 2021 Inactive True Metrix Glucose Meter RxNorm: miscellaneous 08/17/20 19 2018 Inactive sertraline 50 mg tablet RxNorm: 716764 1 Tablet(s) PO daily 11/28/19 20 2019 Inactive loperamide 2 mg tablet RxNorm: 351963 oral 09/29/20 19 2018 Inactive Symbicort 160 mcg-4.5 mcg/actuation HFA aerosol inhaler RxNorm: 0082607 2 Puff(s) INH BID 08/17/20 19 2018 Inactive Medication Administered No Medication Administered data Results Observation Observation Code Item Item Code Result Date Service Location [id number] OBIN 4548-4 Glyco HGB A1C 44699-2 5.6 % 04/14/20 [facility] [address] [place] [address] [id number] OBIN 4548-4 eAG 66614-6 114 mg/dL 04/14/20 [facility] [address] [place] [address] CHEM 14 (METABOLIC PANEL) 57919 Glucose 2345-7 99 mg/dL 04/14/20 [facility] [address] [place] [address] CHEM 14 (METABOLIC PANEL) 46137 BUN 3094-0 16 mg/dL 04/14/20 [facility] [address] [place] [address] CHEM 14 (METABOLIC PANEL) 55615 Creatinine 2160-0 0.6 mg/dL 04/14/20 [facility] [address] [place] [address] CHEM 14 (METABOLIC PANEL) 88375 BUN/Creat Ratio 3097-3 25.8 04/14/20 [facility] [address] [place] [address] CHEM 14 (METABOLIC PANEL) 51476 GFR Estimated 58217-6 110 mL/min/1.7 3m2 04/14/20 [facility] [address] [place] [address] CHEM 14 (METABOLIC PANEL) 33848 GFR Estimated for Americans 64615-3 133 mL/min/1.7 3m2 04/14/20 [facility] [address] [place] [address] CHEM 14 (METABOLIC PANEL) 53349 Sodium 2951-2 138 mmol/L 04/14/20 [facility] [address] [place] [address] 37758 CHEM 14 (METABOLIC PANEL) 06663 Potassium 2823-3 3.8 mmol/L 04/14/20 [facility] [address] [place] [address] CHEM 14 (METABOLIC PANEL) 54887 Chloride 2075-0 103 mmol/L 04/14/20 [facility] [address] [place] [address] 14729 CHEM 14 (METABOLIC PANEL) 61166 Total CO2 2028-9 26 mmol/L 04/14/20 [facility] [address] [place] [address] CHEM 14 (METABOLIC PANEL) 93744 Anion Gap 1863-0 12.8 mEq/L 04/14/20 [facility] [address] [place] [address] 10849 CHEM 14 (METABOLIC PANEL) 20900 Calculated Serum Osmolality 54817-2 287 mOsm/kg 04/14/20 [facility] [address] [place] [address] 31664 CHEM 14 (METABOLIC PANEL) 99604 Albumin 90609-6 3.9 g/dL 04/14/20 [facility] [address] [place] [address] 38823 CHEM 14 (METABOLIC PANEL) 76875 Total Protein 2885-2 7.3 g/dL 04/14/20 [facility] [address] [place] [address] 64023 CHEM 14 (METABOLIC PANEL) 20540 Globulin 2336-6 3.4 g/dL 04/14/20 [facility] [address] [place] [address] 40904 CHEM 14 (METABOLIC PANEL) 02885 Albumin/Globuli n Ratio 1759-0 1.1 04/14/20 [facility] [address] [place] [address] 17153 CHEM 14 (METABOLIC PANEL) 90991 ALK PHOS 6768-6 74.00 U/L 04/14/20 [facility] [address] [place] [address] 94243 CHEM 14 (METABOLIC PANEL) 18971 SGOT/AST 1920-8 15 U/L 04/14/20 [facility] [address] [place] [address] 74146 CHEM 14 (METABOLIC PANEL) 29303 SGPT/ALT 1743-4 21 U/L 04/14/20 [facility] [address] [place] [address] 68744 CHEM 14 (METABOLIC PANEL) 07995 Total Bilirubin 1975-2 0.4 mg/dL 04/14/20 [facility] [address] [place] [address] CHEM 14 (METABOLIC PANEL) 67247 Calcium 37208-7 8.9 mg/dL 04/14/20 [facility] [address] [place] [address] CHEM 14 (METABOLIC PANEL) 32254 Corrected Calcium 94525-3 9.1 mg/dL 04/14/20 [facility] [address] [place] [address] PHOSPHORUS 43113 Phosphorus 2777-1 2.9 mg/dL 04/14/20 [facility] [address] [place] [address] COMPLETE CBC W/ DIFF WBC 75391 WBC 6690-2 10.4 K/ul 04/14/20 [facility] [address] [place] [address] COMPLETE CBC W/ DIFF WBC 39134 RBC 789-8 4.34 M/uL 04/14/20 [facility] [address] [place] [address] 69201 COMPLETE CBC W/ DIFF WBC 54905 Hemoglobin 718-7 12.2 g/dL 04/14/20 [facility] [address] [place] [address] 42736 COMPLETE CBC W/ DIFF WBC 71145 Hematocrit 4544-3 36.0 % 04/14/20 [facility] [address] [place] [address] 79132 COMPLETE CBC W/ DIFF WBC 11133 MCV 787-2 83.0 fL 04/14/20 [facility] [address] [place] [address] 49969 COMPLETE CBC W/ DIFF WBC 53954 MCH 785-6 28.2 pg 04/14/20 [facility] [address] [place] [address] COMPLETE CBC W/ DIFF WBC 87807 MCHC 786-4 34.0 g/dL 04/14/20 [facility] [address] [place] [address] 68611 COMPLETE CBC W/ DIFF WBC 63789 RDW 788-0 15.4 % 04/14/20 [facility] [address] [place] [address] 41905 COMPLETE CBC W/ DIFF WBC 38865 Platelet Count 777-3 329 K/uL 04/14/20 [facility] [address] [place] [address] 98535 COMPLETE CBC W/ DIFF WBC 48988 MPV 51948-9 8.9 fL 04/14/20 [facility] [address] [place] [address] 76346 COMPLETE CBC W/ DIFF WBC 90149 Neutrophils % 770-8 69.6 % 04/14/20 20 [facility] [address] [place] [address] COMPLETE CBC W/ DIFF WBC 00791 Lymphocytes % 736-9 23.7 % 04/14/20 20 [facility] [address] [place] [address] COMPLETE CBC W/ DIFF WBC 21051 Monocytes % 5905-5 6.0 % 04/14/20 [facility] [address] [place] [address] COMPLETE CBC W/ DIFF WBC 71166 Eosinophils % 713-8 0.2 % 04/14/20 [facility] [address] [place] [address] COMPLETE CBC W/ DIFF WBC 64298 Basophils% 706-2 0.5 % 04/14/20 [facility] [address] [place] [address] COMPLETE CBC W/ DIFF WBC 87812 Absolute Neutrophil 751-8 7238 /ul 04/14/20 20 [facility] [address] [place] [address] 70965 COMPLETE CBC W/ DIFF WBC 89057 Absolute Lymphocyte 95768-5 2465 /ul 04/14/20 20 [facility] [address] [place] [address] 08773 COMPLETE CBC W/ DIFF WBC 24981 Absolute Monocyte 742-7 624 /ul 04/14/20 20 [facility] [address] [place] [address] 35259 COMPLETE CBC W/ DIFF WBC 76239 Absolute Eosinophil 711-2 21 /ul 04/14/20 20 [facility] [address] [place] [address] COMPLETE CBC W/ DIFF WBC 58916 Absolute Basophil 704-7 52 /ul 04/14/20 20 [facility] [address] [place] [address] 40920 MAGNESIUM 44133 Magnesium 17708-7 2.3 mg/dL 04/14/20 20 [facility] [address] [place] [address] Procedures Procedure Codes Date Tobacco Assessment/Screening CPT-4: TCA Fall Risk Assessment SNOMED CT: 16019705 4 CPT-4: DFRA 01/01/2020 Functional Assessment CPT-4: DFA 01/01/2020 [place] Assessment CPT-4: DSWA 11/04 Patient Health Questionnaire CPT-4: DPHQ [place] Assessment CPT-4: DSWA 10/03 Hypertension CPT-4: HTN 10/17/2019 Fall Risk Assessment SNOMED CT: 42889407 4 CPT-4: DFRA 09/19/2019 Functional Assessment CPT-4: DFA 09/19/2019 Urinalysis, dip stick CPT-4: 86018 06/21/2019 Tobacco Assessment/Screening CPT-4: TCA Patient Health Questionnaire CPT-4: DPHQ AHA/REBECCA Classification Assessment CPT-4: DAHA 04/25/2019 Controlled Substance Report CPT-4: CTRSU 04/03 Urinalysis, dip stick CPT-4: 02425 03/28/2019 Urinalysis, dip stick CPT-4: 24551 03/28/2019 T1L-Cfejjumzczislzc CPT-4: 31401 Unknown O3A-Aijrrnkaszodwuv CPT-4: 43141 Unknown S5S-Tuiovzareltxbyf CPT-4: 28975 Unknown Gynecology Referral SNOMED CT: 027253901 CPT-4: R14 Unknown Reason For Visit No Reason For Visit data Plan of Care Planned Activity Notes Codes Status Date Patient Education: Patient Medication Summary Completed 04/13/2020 Appointment: Anna Culver WPtel: [address] [place] [address] E452 03/21/2020 Appointment: Anna Culver WPtel: [address] [place] [address] E452 02/14/2020 Appointment: Anna Culver WPtel: [address] [place] [address] E452 01/24/2020 Appointment: Anna Culver WPtel: [address] [place] [address] E452 01/01/2020 Appointment: Anna Culver WPtel: [address] [place] [address] E452 11/28/2019 Appointment: Anna Culver WPtel: [address] [place] [address] E452 10/17/2019 Appointment: Anna Culver WPtel: [address] [place], [place] [id number] 09/19/2019 Appointment: Sudha Hernadez WPtel: [address] [facility] [id number] E452 07/04/2019 Appointment: Sudha Hernadez WPtel: [address] [facility] [id number] E452 06/21/2019 Appointment: Charlene Oropeza WPtel: [address] [place] [address] [id number] 05/24/2019 Appointment: Mallory Delgado E452 04/27/2019 Appointment: Charlene Oropeza WPtel: [address] [facility] [id number] 04/25/2019 Appointment: Rasta Palafox WPtel: [address] [place] [address] [id number] 03/28/2019 Appointment: Rasta Palafox WPtel: 190 [facility] [id number] [id number] 02/14/2019 Appointment: Rasta Palafox WPtel: 190 [facility] [id number] E452 01/31/2019 Appointment: Rasta Palafox WPtel: [address] [place] [address] [id number] 12/27/2018 Referral: Pending Gynecology Referral Information Referral Processed Referral: Pending Pulmonolog y Referral Information Referral Processed Referral: Pending Psychiatry Referral Information Referral Initiated Referral: Pending Respirator y Services Referral Information Referral Initiated Referral: Pending Ophthalmology Referral Information Referral Initiated Referral: [facility] WPtel: 6 [facility] [address] [place], [place] [id number] [place] [employer] Service placed a call out to the patient to notify her that it has been recommended that she be seen by a urologist. Patient agreed to be seen, does not have a provider of choice and no transportation issues. [employer] Service faxed referral and clinical notes to [facility] in [place], [place] near the patient's home. Patient to [...] seen and prefers a provider in the [place] or [place] area. [employer] Service placed a call out to everyone listed in the area and the only location that was able to accept the patient's insurance was [address] [address] and spoke with Maylin. Maylin asked that the patient's referral, face sheet and visit notes be faxed to . [employer] faxed over requested documents. Patient appointment confirmation letter generated and mailed to her home address. Patient to call to schedule an appointment. Processed Referral: [facility] WPtel: [address] [place] [address] Patient notified that it has been advised that she be seen by Neurology. Patient agreed to be seen and prefers to be seen by a provider in the [place], [place] area. Patient denies any concerns with transportation, and prefers to schedule her own appointment. [employer] [facility] [...]
--- OUTSIDE RECORDS SUMMARY | 2023-12-07 02:11 | XMS_ITS | CCD ---
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 Name Role Phone Palomo KING, Anna Primary Care Provider Unav ailable Unavailable Chronic Care Management Unavaila ble Summary Purpose DataExchange Insurance Providers Payer name Policy type / Coverage type Covered alliance party ID Effective Begin Date Effective End Date [facility] [id number] Unknown Unknown Family history Mother Diagnosis Age [...] Unknown Disability 05/31/[address]: 951419963 Has never s moked or chewed tobacco 05/31/[address]: 037922043 Never drinks alco hol 05/31/2018 Has the [...] use ICD-10: Z01.89 ICD-9: V72.85 01/01/2020 Active [place] [facility] ICD-10: H10.029 ICD-9: 372.03 12/29/2019 Active [...] ICD-10: UXZ.01 ICD-9: XZ0.1 04/27/2019 Active Other shelter (current) dr edith therapy ICD-10: Z79.899 ICD-9: [...] Headache ICD-10: R51 ICD-9: 784.0 10/03/2018 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 non-steroidal anti-inflammatories (NSAID) ICD-10: Z79.1 ICD-9: V58.64 06/13/2018 Active Medications Medication Codes Instructions Start Date Stop Date Status Fill Instructions diclofenac sodium 75 mg tablet,delayed release RxNorm: 166048 1 Tablet(s) PO BID 04/14/20 20 2021 Inactive This refill negates all other refills of this medication Sudafed 12 Hour 120 mg tablet,extended release RxNorm: 0056594 TAKE 1 TABLET BY MOUTH EVERY 12 HOURS NEEDED 03/14/20 20 2019 Inactive True Metrix Glucose Test Strip RxNorm: 1 Test Strips Miscellaneous every morning 03/13/20 20 2019 Inactive 100/container loperamide 2 mg tablet RxNorm: 137208 1 Tablet(s) Oral as needed take one tablet after each loose stool, maximum of 8 tablets in 24 hours 02/22/20 20 2019 Inactive True Metrix Glucose Test Strip RxNorm: 1 Test Strips Miscellaneous QAM 02/22/20 20 2019 Inactive 100/container cetirizine 10 mg tablet RxNorm: 8537824 1 Tablet(s) PO daily 01/17/20 20 2019 Inactive levothyroxine 50 mcg tablet RxNorm: 521361 1 Tablet(s) PO daily 01/17/20 20 2020 Inactive gabapentin 300 mg capsule RxNorm: 462500 1 Capsule(s) PO TID 01/17/20 20 2019 Inactive loperamide 2 mg tablet RxNorm: 295399 1 Tablet(s) Oral as needed take one tablet after each loose stool, maximum of 8 tablets in 24 hours 01/17/20 20 2019 Inactive quetiapine 100 mg tablet RxNorm: 316715 1 Tablet(s) Oral every night at bedtime 01/17/20 20 2019 Inactive lisinopril 2.5 mg tablet RxNorm: 928007 1 Tablet(s) PO daily 01/15/20 20 2020 Inactive Singulair 10 mg tablet RxNorm: 311527 1 Tablet(s) PO daily 01/15/20 20 2020 Inactive levothyroxine 50 mcg tablet RxNorm: 101039 1 Tablet(s) PO daily 01/15/20 20 2019 Inactive gabapentin 300 mg capsule RxNorm: 084827 1 Capsule(s) PO TID 01/15/20 20 2019 Inactive cetirizine 10 mg tablet RxNorm: 5208319 1 Tablet(s) PO daily 01/15/20 20 2019 Inactive gentamicin 0.3 % eye drops RxNorm: 818786 1 Drop(s) ophthalmic (eye) four times a day 12/29/19 20 2019 Inactive gentamicin 0.3 % eye drops RxNorm: 790755 1 Drop(s) ophthalmic (eye) four times a day 12/29/19 20 2019 Inactive gentamicin 0.3 % eye drops RxNorm: 153732 1 Drop(s) ophthalmic (eye) four times a day 12/29/19 20 2019 Inactive hydrochlorothiazide 25 mg tablet RxNorm: 323603 1 Tablet(s) Oral every day 12/21/19 20 2019 Inactive Sudafed 12 Hour 120 mg tablet,extended release RxNorm: 8389711 TAKE (1) TABLET BY MOUTH EVERY 12 HOURS NEEDED 12/21/19 20 2019 Inactive loperamide 2 mg tablet RxNorm: 646358 1 Tablet(s) Oral as needed take one tablet after each loose stool, maximum of 8 tablets in 24 hours 12/11/19 20 2019 Inactive loperamide 2 mg tablet RxNorm: 532705 1 Tablet(s) Oral as needed take one tablet after each loose stool, maximum of 8 tablets in 24 hours 12/11/19 20 2019 Inactive atorvastatin 40 mg tablet RxNorm: 248966 1 Tablet(s) Oral every day 11/29/19 20 2020 Inactive sertraline 100 mg tablet RxNorm: 038689 1 Tablet(s) Oral 11/28/19 20 2019 Inactive quetiapine 100 mg tablet RxNorm: 700489 1 Tablet(s) Oral every night at bedtime 11/28/19 20 2019 Inactive omeprazole 20 mg capsule,delayed release RxNorm: 776588 1 Capsule(s) Oral every day 11/20/19 20 2019 Inactive amoxicillin 250 mg capsule RxNorm: 332731 1 Capsule(s) Oral three times a day 11/07/19 20 2019 Inactive multivitamin with iron-mineral tablet RxNorm: 1 Tablet(s) Oral every day 10/29/19 20 2021 Inactive cetirizine 10 mg tablet RxNorm: 5065036 1 Tablet(s) PO daily 10/20/19 20 2019 Inactive This refill negates all other refills of this medication. Please do not auto refill Singulair 10 mg tablet RxNorm: 182238 1 Tablet(s) PO daily 10/20/192019 Inactive This refill negates all other refills of this medication gabapentin 300 mg capsule RxNorm: 207815 1 Capsule(s) PO TID 10/20/192019 Inactive lisinopril 2.5 mg tablet RxNorm: 241221 1 Tablet(s) PO daily 10/20/192019 Inactive levothyroxine 50 mcg tablet RxNorm: 095121 1 Tablet(s) PO daily 10/20/192019 Inactive This refill negates all other refills of this medication fenugreek seed extract 500 mg capsule RxNorm: 1 Capsule(s) Oral three times a day 10/17/19 20 2021 Inactive hydrochlorothiazide 25 mg tablet RxNorm: 411452 1 Tablet(s) Oral every day 10/17/192019 Inactive Alcohol Prep Pads RxNorm: 614086 1 Patch TOP QAM 10/16/19 20 2020 Inactive loperamide 2 mg tablet RxNorm: 396598 1 Tablet(s) Oral as needed take one [...] 2019 Inactive hydrochlorothiazide 25 mg tablet RxNorm: 952700 1 Tablet(s) Oral every day 09/19/202019 Inactive Sudafed 12 Hour 120 mg tablet,extended release RxNorm: 2271052 1 Tablet(s) Oral every 12 hours as needed 09/11/20 19 2018 Inactive omeprazole 20 mg capsule,delayed release RxNorm: 182865 1 Capsule(s) Oral every day 09/07/20 19 2019 Inactive Sudafed 12 Hour 120 mg tablet,extended release RxNorm: 5590011 1 Tablet(s) Oral every 12 hours as needed 09/04/20 19 2018 Inactive pantoprazole 40 mg tablet,delayed release RxNorm: 698060 1 Tablet(s) Oral every day 08/24/20 19 2018 Inactive discontinue any other H2Blkr. and PPI albuterol sulfate 2.5 mg/3 mL (0.083 %) solution for nebulization RxNorm: 715322 1 Vial Inhalation every four hours as needed as needed for dyspnea 08/17/20 19 2019 Inactive 60/box. This refill negates all other refills of this medication. Please do not fill early. Please do not auto refill. Symbicort 160 mcg-4.5 mcg/actuation HFA aerosol inhaler RxNorm: 8772767 2 Puff(s) INH BID 08/17/20 19 No Stop Date Active Alcohol Prep Pads RxNorm: 843505 1 Patch TOP QAM 08/17/20 19 2019 Inactive Ventolin HFA 90 mcg/actuation aerosol inhaler RxNorm: 865229 2 Puff(s) INH QID 08/09/20 19 2019 Inactive Please do not fill early. Please do not auto refill. This refill negates all other refills of this medication True Metrix Glucose Test Strip RxNorm: 1 Test Strips Miscellaneous QAM 08/09/20 19 2019 Inactive 100/container atorvastatin 40 mg tablet RxNorm: 768503 1 Tablet(s) Oral every day 07/04/20 19 2019 Inactive levmetamfetamine 50 mg nasal inhaler RxNorm: 1 Unit(s) NASAL Q3-4H Do not use more than every 3 hours or 8 times/24hours 06/26/20 19 2021 Inactive Please do not auto refill. This refill negates all other refills of this medication buspirone 7.5 mg tablet RxNorm: 396267 1 Tablet(s) PO BID 06/26/20 19 2020 Inactive This refill negates all other refills of this medication hydrochlorothiazide 12.5 mg tablet RxNorm: 240224 1 Tablet(s) PO QAM 06/26/20 19 2019 Inactive Ventolin HFA 90 mcg/actuation aerosol inhaler RxNorm: 897346 2 Puff(s) INH QID 06/26/20 19 2018 Inactive Please do not fill early. Please do not auto refill. This refill negates all other refills of this medication Singulair 10 mg tablet RxNorm: 442964 1 Tablet(s) PO daily 06/26/20 19 2019 Inactive This refill negates all other refills of this medication cetirizine 10 mg tablet RxNorm: 2530774 1 Tablet(s) PO daily 06/26/20 19 2019 Inactive This refill negates all other refills of this medication. Please do not auto refill levothyroxine 50 mcg tablet RxNorm: 592049 1 Tablet(s) PO daily 06/26/20 19 2019 Inactive This refill negates all other refills of this medication diclofenac sodium 75 mg tablet,delayed release RxNorm: 113333 1 Tablet(s) PO BID 06/26/20 19 2019 Inactive This refill negates all other refills of this medication ranitidine 150 mg tablet RxNorm: 112880 1 Tablet(s) PO BID 06/26/20 19 2018 Inactive This refill negates all other refills of this medication Calcium 600-D3 Plus (mag-zinc) 600 mg calcium-800 unit-50 mg tablet RxNorm: 1 Tablet(s) PO daily take an additonal tablet for itching. 06/26/20 19 2018 Inactive This refill negates all other refills of this medication albuterol sulfate 2.5 mg/3 mL (0.083 %) solution for nebulization RxNorm: 977646 1 Vial INH QID 06/26/20 19 2018 Inactive 60/box. This refill negates all other refills of this medication. Please do not fill early. Please do not auto refill. lisinopril 2.5 mg tablet RxNorm: 345364 1 Tablet(s) PO daily 06/21/20 19 2019 Inactive gabapentin 300 mg capsule RxNorm: 689159 1 Capsule(s) PO TID 06/21/20 19 2019 Inactive atorvastatin 20 mg tablet RxNorm: 349398 1 Tablet(s) PO QHS 06/07/202018 Inactive This refill negates all other refills of this medication TRUEplus Lancets 30 gauge RxNorm: 1 Lancets Miscellaneous QAM 05/29/20 19 2018 Inactive 100/box gabapentin 300 mg capsule RxNorm: 330940 1 Capsule(s) PO TID 05/03/20 19 2018 Inactive Flintstones Complete (iron) 18 mg iron chewable tablet RxNorm: 1 Tablet(s) PO daily 04/04/202021 Inactive This refill negates all other refills of this medication gabapentin 300 mg capsule RxNorm: 859905 1 Capsule(s) PO TID as needed 02/01/20 19 2018 Inactive True Metrix Glucose Test Strip RxNorm: 1 Test Strips Miscellaneous QA 02/01/20 19 2018 Inactive 100/container Alcohol Prep Pads RxNorm: 283917 1 Patch TOP QA 02/01/20 19 2018 Inactive TRUEplus Lancets 30 gauge RxNorm: 1 Lancets Miscellaneous QA 02/01/202018 Inactive 100/box lisinopril 2.5 mg tablet RxNorm: 594217 1 Tablet(s) PO daily 12/28/19 19 2018 Inactive ranitidine 150 mg tablet RxNorm: 869123 1 Tablet(s) PO BID 10/21/192018 Inactive This refill negates all other refills of this medication albuterol sulfate 2.5 mg/3 mL (0.083 %) solution for nebulization RxNorm: 504205 1 Vial INH QID 10/21/192018 Inactive 60/box. [...] this medication gabapentin 300 mg capsule RxNorm: 887426 1 Capsule(s) PO TID as needed 10/21/19 19 2018 Inactive atorvastatin 20 mg tablet RxNorm: 212425 1 Tablet(s) PO QHS 10/21/192018 Inactive This refill negates all other refills of this medication trazodone 50 mg tablet RxNorm: 754670 1 Tablet(s) PO QHS 10/21/192018 Inactive This refill negates all other refills of this medication Ventolin HFA 90 mcg/actuation aerosol inhaler RxNorm: 735607 2 Puff(s) INH QID 10/21/192018 Inactive Please do not fill early. Please do not auto refill. This refill negates all other refills of this medication Calcium 600-D3 Plus 600 mg calcium-800 unit-50 mg tablet RxNorm: 1 Tablet(s) PO daily take an additonal tablet for itching. 10/21/192018 Inactive This refill negates all other refills of this medication Singulair 10 mg tablet RxNorm: 327127 1 Tablet(s) PO daily 10/21/192018 Inactive This refill negates all other refills of this medication buspirone 7.5 mg tablet RxNorm: 579940 1 Tablet(s) PO BID 10/21/192018 Inactive This refill negates all other refills of this medication diclofenac sodium 75 mg tablet,delayed release RxNorm: 183886 1 Tablet(s) PO BID 10/21/19 19 2018 Inactive This refill negates all other refills of this medication hydrochlorothiazide 12.5 mg tablet RxNorm: 354075 1 Tablet(s) PO QAM 10/21/19 19 2018 Inactive metoprolol succinate ER 50 mg tablet,extended release 24 hr RxNorm: 585563 1 Tablet(s) PO daily 10/21/19 19 2018 Inactive This refill negates all other refills of this medication levothyroxine 50 mcg tablet RxNorm: 508679 1 Tablet(s) PO daily 10/21/19 19 2018 Inactive This refill negates all other refills of this medication cetirizine 10 mg tablet RxNorm: 6754926 1 Tablet(s) PO daily 10/21/192018 Inactive This refill negates all other refills of this medication. Please do not auto refill Flintstones Complete (iron) 18 mg iron chewable tablet RxNorm: 1 Tablet(s) PO daily 10/21/19 19 2018 Inactive This refill negates all other refills of this medication buspirone 7.5 mg tablet RxNorm: 037807 1 Tablet(s) PO BID 10/12/192018 Inactive cetirizine 10 mg tablet RxNorm: 5607892 1 Tablet(s) PO daily 09/28/20 18 2018 Inactive Guaiasorb DM 10 mg-100 mg/5 mL oral liquid RxNorm: 716165 10 Milliliter(s) PO As needed every 4 hr 09/24/20 18 2018 Inactive Vicks Vaporub 4.7 %-1.2 %-2.6 % topical ointment RxNorm: 8309904 1 Application TOP TID 09/24/20 18 2018 Inactive levmetamfetamine 50 mg nasal inhaler RxNorm: 1 Unit(s) NASAL Q3-4H 09/24/20 18 2017 Inactive sertraline 50 mg tablet RxNorm: 626734 1 Tablet(s) PO daily 09/09/20 18 2018 Inactive Please note dose trazodone 50 mg tablet RxNorm: 961692 1 Tablet(s) PO QHS 09/06/20 18 2018 Inactive sertraline 50 mg tablet RxNorm: 917795 1 Tablet(s) PO daily 09/06/20 18 2017 Inactive amoxicillin 500 mg tablet RxNorm: 772546 1 Tablet(s) PO Q12H 08/31/20 18 2017 Inactive albuterol sulfate 2.5 mg/3 mL (0.083 %) solution for nebulization RxNorm: 166007 1 Vial INH QID 08/10/20 18 2018 Inactive 60/box. Please do not fill early. Please do not auto refill. Prozac 10 mg capsule RxNorm: 681894 1 Capsule(s) PO daily 08/09/20 18 2017 Inactive buspirone 7.5 mg tablet RxNorm: 409134 1 Tablet(s) PO BID 08/09/20 18 2018 Inactive gabapentin 300 mg capsule RxNorm: 473048 1 Capsule(s) PO TID as needed 08/01/20 18 2018 Inactive hydrochlorothiazide 12.5 mg tablet RxNorm: 049473 1 Tablet(s) PO QAM 08/01/20 18 2018 Inactive ranitidine 150 mg tablet RxNorm: 221574 1 Tablet(s) PO BID 08/01/20 18 2018 Inactive Macrobid 100 mg capsule RxNorm: 410441 1 Capsule(s) PO Q12H 06/21/20 18 2017 Inactive Singulair 10 mg tablet RxNorm: 386615 1 Tablet(s) PO daily 06/14/20 18 2018 Inactive Ventolin HFA 90 mcg/actuation aerosol inhaler RxNorm: 2339369 2 Puff(s) INH QID 06/14/20 18 2018 Inactive Singulair 10 mg tablet RxNorm: 098536 1 Tablet(s) PO daily 06/14/20 18 2017 Inactive buspirone 7.5 mg tablet RxNorm: 911694 1 Tablet(s) PO BID 06/14/20 18 2017 Inactive Prozac 10 mg capsule RxNorm: 356239 1 Capsule(s) PO daily 06/14/20 18 2017 Inactive Neilmed Pediatric Sinus Rinse Refill packet RxNorm: 1 Unit Dose NASAL PRN 05/31/20 18 2021 Inactive diclofenac sodium 75 mg tablet,delayed release RxNorm: 126944 1 Tablet(s) PO BID 05/31/20 18 2017 Inactive lisinopril 2.5 mg tablet RxNorm: 007140 1 Tablet(s) PO daily 05/31/20 18 2017 Inactive metoprolol succinate ER 50 mg tablet,extended release 24 hr RxNorm: 896094 1 Tablet(s) PO daily 05/31/20 18 2017 Inactive levothyroxine 50 mcg tablet RxNorm: 742444 1 Tablet(s) PO daily 05/31/20 18 2017 Inactive TRUEplus Lancets 30 gauge RxNorm: 1 Lancets Miscellaneous QAM 05/31/20 18 2017 Inactive 100/box Ventolin HFA 90 mcg/actuation aerosol inhaler RxNorm: 127683 2 Puff(s) INH QID 05/31/20 18 2017 Inactive Aleve 220 mg capsule RxNorm: 1225993 1 Capsule(s) PO BID 05/31/20 18 2018 Inactive ranitidine 150 mg tablet RxNorm: 086892 1 Tablet(s) PO BID 05/31/20 18 2017 Inactive gabapentin 300 mg capsule RxNorm: 427027 1 Capsule(s) PO TID as needed 05/31/20 18 2017 Inactive atorvastatin 20 mg tablet RxNorm: 430669 1 Tablet(s) PO QHS 05/31/20 18 2017 Inactive True Metrix Glucose Test Strip RxNorm: 1 Test Strips Miscellaneous QAM 05/31/20 18 2017 Inactive 50/container Calcium 600-D3 Plus 600 mg calcium-800 unit-50 mg tablet RxNorm: 1 Tablet(s) PO daily take an additonal tablet for itching. 05/31/20 18 2017 Inactive hydrochlorothiazide 12.5 mg tablet RxNorm: 176040 1 Tablet(s) PO QAM 05/31/20 18 2017 Inactive Flintstones Complete (iron) 18 mg iron chewable tablet RxNorm: 1 Tablet(s) PO daily 05/31/20 18 2017 Inactive d-mannose oral powder RxNorm: PO 18 2021 Inactive True Metrix Glucose Meter RxNorm: miscellaneous 08/17/20 19 2018 Inactive sertraline 50 mg tablet RxNorm: 758605 1 Tablet(s) PO daily 11/28/19 20 2019 Inactive loperamide 2 mg tablet RxNorm: 494395 oral 09/29/20 19 2018 Inactive Symbicort 160 mcg-4.5 mcg/actuation HFA aerosol inhaler RxNorm: 8397141 2 Puff(s) INH BID 08/17/202018 Inactive Medication Administered No Medication Administered data Procedures Procedure Codes Date Tobacco Assessment/Screening CPT-4: TCA Fall Risk Assessment SNOMED CT: 86987403 4 CPT-4: DFRA 01/01/2020 Functional Assessment CPT-4: DFA 01/01/2020 [place] F[place] Assessment CPT-4: DSWA 11/04 Patient Health Questionnaire CPT-4: DPHQ [place] Fany Assessment CPT-4: DSWA 10/03 Hypertension CPT-4: HTN 10/17/2019 Fall Risk Assessment SNOMED CT: 04300465 4 CPT-4: DFRA 09/19/2019 Functional Assessment CPT-4: DFA 09/19/2019 Urinalysis, dip stick CPT-4: 41452 06/21/2019 Tobacco Assessment/Screening CPT-4: TCA Patient Health Questionnaire CPT-4: DPHQ AHA/REBECCA Classification Assessment CPT-4: DAHA 04/25/2019 Controlled Substance Report CPT-4: CTRSU 04/03 Urinalysis, dip stick CPT-4: 22847 03/28/2019 Urinalysis, dip stick CPT-4: 99587 03/28/2019 [id number] CPT-4: 62447 Unknown [id number] CPT-4: 95445 Unknown [id number] CPT-4: 67974 Unknown Gynecology Referral SNOMED CT: 657275590 CPT-4: R14 Unknown Reason For Visit No [...] Referral Initiated Referral: [facility] WPtel: 615 [facility] [address] [employer]ist placed a call out to the patient to notify her that it has been recommended that she be seen by a urologist. Patient agreed to be seen, does not have a provider of choice and no transportation issues. [employer]ist faxed referral and clinical notes to [facility] in [place], [place] near the patient's home. Patient to [...] seen and prefers a provider in the [place] or [place] area. [employer]ist placed a call out to everyone listed in the area and the only location that was able to accept the patient's insurance was [address] [address] and spoke with Maylin. Maylin asked that the patient's referral, face sheet and visit notes be faxed to . [employer]ist faxed over requested documents. Patient appointment confirmation letter generated and mailed to her home address. Patient to call to schedule an appointment. Processed Referral: [facility] WPtel: [address] [facility] [address] [place], [place] [address] Patient notified that it has been advised that she be seen by Neurology. Patient agreed to be seen and prefers to be seen by a provider in the [place], [place] area. Patient denies any concerns with transportation, and prefers to schedule her own appointment. Retail [employer] Specialist placed a call out to [facility] [...]
--- OUTSIDE RECORDS SUMMARY | 2023-12-07 02:12 | XMS_ITS | CCD ---
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 Premium Service Representative Name Role Phone Palomo KING, Anna Primary Care Provider Unav ailable Unavailable Chronic Care Management Unavaila ble Summary Purpose DataExchange Insurance Providers Payer name Policy type / Coverage type Covered constitution party ID Effective Begin Date Effective End Date SUKI [employer]TS MARIA ESTHER [id number] Unknown Unknown Family history Mother Diagnosis Age [...] Unknown Disability 05/31/[address]: 581899444 Has never s moked or chewed tobacco 05/31/[address]: 587476358 Never drinks alco hol 05/31/2018 Has the [...] Condition Codes Effective Dates Condition [facility] (Z12.4-V76.2) Encounter for screening for malignant neoplasm [...] neuropathy ICD-10: E11.42 ICD-9: 250.60 11/28/2019 Active Right wrist pain ICD-10: M25.531 ICD-9: 719.43 05/14/2020 Active (Z12.11-V76.51) Encounter fo r screening for [...] use ICD-10: Z01.89 ICD-9: V72.85 01/01/2020 Active [place] eye ICD-10: H10.029 ICD-9: 372.03 12/29/2019 Active [...] ICD-10: UXZ.01 ICD-9: XZ0.1 04/27/2019 Active Other snf (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 [...] Headache ICD-10: R51 ICD-9: 784.0 10/03/2018 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) ICD-10: Z79.1 ICD-9: V58.64 06/13/2018 Active Medications Medication Codes Instructions Start Date Stop Date Status Fill Instructions Sudafed 12 Hour 120 mg tablet,extended release RxNorm: 7912051 TAKE 1 TABLET BY MOUTH EVERY 12 HOURS NEEDED 06/11/20 20 2019 Inactive hydrochlorothiazide 25 mg tablet RxNorm: 858053 TAKE (1) TABLET BY MOUTH EVERY DAY 06/11/20 20 2019 Inactive omeprazole 20 mg capsule,delayed release RxNorm: 606125 TAKE 1 CAPSULE BY MOUTH EVERY DAY 05/14/20 20 2020 Inactive metformin 500 mg tablet RxNorm: 555644 1 Tablet(s) Oral every day 05/12/20 20 2019 Inactive True Metrix Glucose Test Strip RxNorm: 1 Test Strips Miscellaneous two times a day as needed 04/17/20 No Stop Date Active metformin 500 mg tablet RxNorm: 722253 1 Tablet(s) Oral every day 04/17/20 20 2019 Inactive diclofenac sodium 75 mg tablet,delayed release RxNorm: 202530 1 Tablet(s) PO BID 04/14/20 20 2021 Inactive This refill negates all other refills of this medication Sudafed 12 Hour 120 mg tablet,extended release RxNorm: 0628507 TAKE 1 TABLET BY MOUTH EVERY 12 HOURS NEEDED 03/14/20 20 2019 Inactive True Metrix Glucose Test Strip RxNorm: 1 Test Strips Miscellaneous every morning 03/13/20 20 2019 Inactive 100/container loperamide 2 mg tablet RxNorm: 014319 1 Tablet(s) Oral as needed take one tablet after each loose stool, maximum of 8 tablets in 24 hours 02/22/20 20 2019 Inactive True Metrix Glucose Test Strip RxNorm: 1 Test Strips Miscellaneous QAM 02/22/20 20 2019 Inactive 100/container cetirizine 10 mg tablet RxNorm: 7294983 1 Tablet(s) PO daily 01/17/20 20 2019 Inactive levothyroxine 50 mcg tablet RxNorm: 227348 1 Tablet(s) PO daily 01/17/20 20 2020 Inactive gabapentin 300 mg capsule RxNorm: 469075 1 Capsule(s) PO TID 01/17/20 20 2019 Inactive loperamide 2 mg tablet RxNorm: 275499 1 Tablet(s) Oral as needed take one tablet after each loose stool, maximum of 8 tablets in 24 hours 01/17/20 20 2019 Inactive quetiapine 100 mg tablet RxNorm: 409379 1 Tablet(s) Oral every night at bedtime 01/17/20 20 2019 Inactive lisinopril 2.5 mg tablet RxNorm: 063856 1 Tablet(s) PO daily 01/15/20 20 2020 Inactive Singulair 10 mg tablet RxNorm: 547616 1 Tablet(s) PO daily 01/15/20 20 2020 Inactive levothyroxine 50 mcg tablet RxNorm: 523394 1 Tablet(s) PO daily 01/15/20 20 2019 Inactive gabapentin 300 mg capsule RxNorm: 171821 1 Capsule(s) PO TID 01/15/20 20 2019 Inactive cetirizine 10 mg tablet RxNorm: 8940910 1 Tablet(s) PO daily 01/15/20 20 2019 Inactive gentamicin 0.3 % eye drops RxNorm: 835643 1 Drop(s) ophthalmic (eye) four times a day 12/29/19 20 2019 Inactive gentamicin 0.3 % eye drops RxNorm: 869717 1 Drop(s) ophthalmic (eye) four times a day 12/29/19 20 2019 Inactive gentamicin 0.3 % eye drops RxNorm: 326711 1 Drop(s) ophthalmic (eye) four times a day 12/29/19 20 2019 Inactive hydrochlorothiazide 25 mg tablet RxNorm: 569336 1 Tablet(s) Oral every day 12/21/19 20 2019 Inactive Sudafed 12 Hour 120 mg tablet,extended release RxNorm: 4485426 TAKE (1) TABLET BY MOUTH EVERY 12 HOURS NEEDED 12/21/19 20 2019 Inactive loperamide 2 mg tablet RxNorm: 470310 1 Tablet(s) Oral as needed take one tablet after each loose stool, maximum of 8 tablets in 24 hours 12/11/19 20 2019 Inactive loperamide 2 mg tablet RxNorm: 750656 1 Tablet(s) Oral as needed take one tablet after each loose stool, maximum of 8 tablets in 24 hours 12/11/19 20 2019 Inactive atorvastatin 40 mg tablet RxNorm: 608868 1 Tablet(s) Oral every day 11/29/19 20 2020 Inactive quetiapine 100 mg tablet RxNorm: 176311 1 Tablet(s) Oral every night at bedtime 11/28/19 20 2019 Inactive sertraline 100 mg tablet RxNorm: 447191 1 Tablet(s) Oral 11/28/19 20 2019 Inactive omeprazole 20 mg capsule,delayed release RxNorm: 434295 1 Capsule(s) Oral every day 11/20/19 20 2019 Inactive amoxicillin 250 mg capsule RxNorm: 619453 1 Capsule(s) Oral three times a day 11/07/19 20 2019 Inactive multivitamin with iron-mineral tablet RxNorm: 1 Tablet(s) Oral every day 10/29/19 20 2021 Inactive cetirizine 10 mg tablet RxNorm: 8562005 1 Tablet(s) PO daily 10/20/19 20 2019 Inactive This refill negates all other refills of this medication. Please do not auto refill Singulair 10 mg tablet RxNorm: 540554 1 Tablet(s) PO daily 10/20/19 20 2019 Inactive This refill negates all other refills of this medication gabapentin 300 mg capsule RxNorm: 580177 1 Capsule(s) PO TID 10/20/19 20 2019 Inactive lisinopril 2.5 mg tablet RxNorm: 309921 1 Tablet(s) PO daily 10/20/19 20 2019 Inactive levothyroxine 50 mcg tablet RxNorm: 941539 1 Tablet(s) PO daily 10/20/19 20 2019 Inactive This refill negates all other refills of this medication fenugreek seed extract 500 mg capsule RxNorm: 1 Capsule(s) Oral three times a day 10/17/19 20 2021 Inactive hydrochlorothiazide 25 mg tablet RxNorm: 669688 1 Tablet(s) Oral every day 10/17/19 20 2019 Inactive Alcohol Prep Pads RxNorm: 645352 1 Patch TOP QAM 10/16/19 20 2020 Inactive loperamide 2 mg tablet RxNorm: 651170 1 Tablet(s) Oral as needed take one [...] 2019 Inactive hydrochlorothiazide 25 mg tablet RxNorm: 463296 1 Tablet(s) Oral every day 09/19/20 19 2019 Inactive Sudafed 12 Hour 120 mg tablet,extended release RxNorm: 1499869 1 Tablet(s) Oral every 12 hours as needed 09/11/20 19 2018 Inactive omeprazole 20 mg capsule,delayed release RxNorm: 753136 1 Capsule(s) Oral every day 09/07/20 19 2019 Inactive Sudafed 12 Hour 120 mg tablet,extended release RxNorm: 3547469 1 Tablet(s) Oral every 12 hours as needed 09/04/20 19 2018 Inactive pantoprazole 40 mg tablet,delayed release RxNorm: 040765 1 Tablet(s) Oral every day 08/24/20 19 2018 Inactive discontinue any other H2Blkr. and PPI albuterol sulfate 2.5 mg/3 mL (0.083 %) solution for nebulization RxNorm: 837310 1 Vial Inhalation every four hours as needed as needed for dyspnea 08/17/20 19 2019 Inactive 60/box. This refill negates all other refills of this medication. Please do not fill early. Please do not auto refill. Symbicort 160 mcg-4.5 mcg/actuation HFA aerosol inhaler RxNorm: 9765725 2 Puff(s) INH BID 08/17/20 No Stop Date Active Alcohol Prep Pads RxNorm: 528544 1 Patch TOP QAM 08/17/20 19 2019 Inactive Ventolin HFA 90 mcg/actuation aerosol inhaler RxNorm: 769891 2 Puff(s) INH QID 08/09/20 19 2019 Inactive Please do not fill early. Please do not auto refill. This refill negates all other refills of this medication True Metrix Glucose Test Strip RxNorm: 1 Test Strips Miscellaneous QAM 08/09/20 19 2019 Inactive 100/container atorvastatin 40 mg tablet RxNorm: 286660 1 Tablet(s) Oral every day 07/04/20 19 2019 Inactive levmetamfetamine 50 mg nasal inhaler RxNorm: 1 Unit(s) NASAL Q3-4H Do not use more than every 3 hours or 8 times/24hours 06/26/20 19 2021 Inactive Please do not auto refill. This refill negates all other refills of this medication buspirone 7.5 mg tablet RxNorm: 015078 1 Tablet(s) PO BID 06/26/20 19 2020 Inactive This refill negates all other refills of this medication hydrochlorothiazide 12.5 mg tablet RxNorm: 796370 1 Tablet(s) PO QAM 06/26/20 19 2019 Inactive Ventolin HFA 90 mcg/actuation aerosol inhaler RxNorm: 360212 2 Puff(s) INH QID 06/26/20 19 2018 Inactive Please do not fill early. Please do not auto refill. This refill negates all other refills of this medication Singulair 10 mg tablet RxNorm: 840507 1 Tablet(s) PO daily 06/26/20 19 2019 Inactive This refill negates all other refills of this medication cetirizine 10 mg tablet RxNorm: 4314450 1 Tablet(s) PO daily 06/26/20 19 2019 Inactive This refill negates all other refills of this medication. Please do not auto refill levothyroxine 50 mcg tablet RxNorm: 356214 1 Tablet(s) PO daily 06/26/20 19 2019 Inactive This refill negates all other refills of this medication diclofenac sodium 75 mg tablet,delayed release RxNorm: 995901 1 Tablet(s) PO BID 06/26/20 19 2019 Inactive This refill negates all other refills of this medication ranitidine 150 mg tablet RxNorm: 455691 1 Tablet(s) PO BID 06/26/20 19 2018 Inactive This refill negates all other refills of this medication Calcium 600-D3 Plus (mag-zinc) 600 mg calcium-800 unit-50 mg tablet RxNorm: 1 Tablet(s) PO daily take an additonal tablet for itching. 06/26/20 19 2018 Inactive This refill negates all other refills of this medication albuterol sulfate 2.5 mg/3 mL (0.083 %) solution for nebulization RxNorm: 604724 1 Vial INH QID 06/26/20 19 2018 Inactive 60/box. This refill negates all other refills of this medication. Please do not fill early. Please do not auto refill. lisinopril 2.5 mg tablet RxNorm: 897092 1 Tablet(s) PO daily 06/21/20 19 2019 Inactive gabapentin 300 mg capsule RxNorm: 240157 1 Capsule(s) PO TID 06/21/20 19 2019 Inactive atorvastatin 20 mg tablet RxNorm: 218723 1 Tablet(s) PO QHS 06/07/20 19 2018 Inactive This refill negates all other refills of this medication TRUEplus Lancets 30 gauge RxNorm: 1 Lancets Miscellaneous QAM 08/2018 Inactive 100/box gabapentin 300 mg capsule RxNorm: 639963 1 Capsule(s) PO TID 05/03/20 19 2018 Inactive Flnickolas Complete (iron) 18 mg iron chewable tablet RxNorm: 1 Tablet(s) PO daily 04/04/202021 Inactive This refill negates all other refills of this medication gabapentin 300 mg capsule RxNorm: 596173 1 Capsule(s) PO TID as needed 02/01/202018 Inactive True Metrix Glucose Test Strip RxNorm: 1 Test Strips Miscellaneous QAM 02/01/20 19 2018 Inactive 100/container Alcohol Prep Pads RxNorm: 550462 1 Patch TOP QAM 02/01/202018 Inactive TRUEplus Lancets 30 gauge RxNorm: 1 Lancets Miscellaneous QAM 02/01/20 19 2018 Inactive 100/box lisinopril 2.5 mg tablet RxNorm: 094453 1 Tablet(s) PO daily 12/28/192018 Inactive ranitidine 150 mg tablet RxNorm: 611816 1 Tablet(s) PO BID 10/21/192018 Inactive This refill negates all other refills of this medication albuterol sulfate 2.5 mg/3 mL (0.083 %) solution for nebulization RxNorm: 715660 1 Vial INH QID 10/21/192018 Inactive 60/box. [...] this medication gabapentin 300 mg capsule RxNorm: 467407 1 Capsule(s) PO TID as needed 10/21/192018 Inactive atorvastatin 20 mg tablet RxNorm: 490827 1 Tablet(s) PO QHS 10/21/192018 Inactive This refill negates all other refills of this medication trazodone 50 mg tablet RxNorm: 180259 1 Tablet(s) PO QHS 10/21/192018 Inactive This refill negates all other refills of this medication Ventolin HFA 90 mcg/actuation aerosol inhaler RxNorm: 991495 2 Puff(s) INH QID 10/21/192018 Inactive Please do not fill early. Please do not auto refill. This refill negates all other refills of this medication Calcium 600-D3 Plus 600 mg calcium-800 unit-50 mg tablet RxNorm: 1 Tablet(s) PO daily take an additonal tablet for itching. 10/21/192018 Inactive This refill negates all other refills of this medication Singulair 10 mg tablet RxNorm: 005216 1 Tablet(s) PO daily 10/21/192018 Inactive This refill negates all other refills of this medication buspirone 7.5 mg tablet RxNorm: 595423 1 Tablet(s) PO BID 10/21/192018 Inactive This refill negates all other refills of this medication diclofenac sodium 75 mg tablet,delayed release RxNorm: 071519 1 Tablet(s) PO BID 10/21/192018 Inactive This refill negates all other refills of this medication hydrochlorothiazide 12.5 mg tablet RxNorm: 139266 1 Tablet(s) PO QAM 10/21/192018 Inactive metoprolol succinate ER 50 mg tablet,extended release 24 hr RxNorm: 523643 1 Tablet(s) PO daily 10/21/192018 Inactive This refill negates all other refills of this medication levothyroxine 50 mcg tablet RxNorm: 277990 1 Tablet(s) PO daily 10/21/192018 Inactive This refill negates all other refills of this medication cetirizine 10 mg tablet RxNorm: 4935080 1 Tablet(s) PO daily 10/21/192018 Inactive This refill negates all other refills of this medication. Please do not auto refill Flintstones Complete (iron) 18 mg iron chewable tablet RxNorm: 1 Tablet(s) PO daily 10/21/19 19 2018 Inactive This refill negates all other refills of this medication buspirone 7.5 mg tablet RxNorm: 899227 1 Tablet(s) PO BID 10/12/19 19 2018 Inactive cetirizine 10 mg tablet RxNorm: 8283507 1 Tablet(s) PO daily 09/28/20 18 2018 Inactive Guaiasorb DM 10 mg-100 mg/5 mL oral liquid RxNorm: 327556 10 Milliliter(s) PO As needed every 4 hr 09/24/202018 Inactive Vicks Vaporub 4.7 %-1.2 %-2.6 % topical ointment RxNorm: 4233255 1 Application TOP TID 09/24/20 18 2018 Inactive levmetamfetamine 50 mg nasal inhaler RxNorm: 1 Unit(s) NASAL Q3-4H 09/24/20 18 2017 Inactive sertraline 50 mg tablet RxNorm: 244112 1 Tablet(s) PO daily 09/09/20 18 2018 Inactive Please note dose trazodone 50 mg tablet RxNorm: 475967 1 Tablet(s) PO QHS 09/06/20 18 2018 Inactive sertraline 50 mg tablet RxNorm: 310535 1 Tablet(s) PO daily 09/06/20 18 2017 Inactive amoxicillin 500 mg tablet RxNorm: 830412 1 Tablet(s) PO Q12H 08/31/20 18 2017 Inactive albuterol sulfate 2.5 mg/3 mL (0.083 %) solution for nebulization RxNorm: 418787 1 Vial INH QID 08/10/20 18 2018 Inactive 60/box. Please do not fill early. Please do not auto refill. Prozac 10 mg capsule RxNorm: 572039 1 Capsule(s) PO daily 08/09/20 18 2017 Inactive buspirone 7.5 mg tablet RxNorm: 262401 1 Tablet(s) PO BID 08/09/20 18 2018 Inactive gabapentin 300 mg capsule RxNorm: 213513 1 Capsule(s) PO TID as needed 08/01/20 18 2018 Inactive hydrochlorothiazide 12.5 mg tablet RxNorm: 120101 1 Tablet(s) PO QAM 08/01/20 18 2018 Inactive ranitidine 150 mg tablet RxNorm: 169355 1 Tablet(s) PO BID 08/01/20 18 2018 Inactive Macrobid 100 mg capsule RxNorm: 289982 1 Capsule(s) PO Q12H 06/21/20 18 2017 Inactive Singulair 10 mg tablet RxNorm: 646754 1 Tablet(s) PO daily 06/14/20 18 2018 Inactive Ventolin HFA 90 mcg/actuation aerosol inhaler RxNorm: 5106912 2 Puff(s) INH QID 06/14/20 18 2018 Inactive Singulair 10 mg tablet RxNorm: 166764 1 Tablet(s) PO daily 06/14/20 18 2017 Inactive buspirone 7.5 mg tablet RxNorm: 977620 1 Tablet(s) PO BID 06/14/20 18 2017 Inactive Prozac 10 mg capsule RxNorm: 830951 1 Capsule(s) PO daily 06/14/20 18 2017 Inactive Neilmed Pediatric Sinus Rinse Refill packet RxNorm: 1 Unit Dose NASAL PRN 05/31/20 18 2021 Inactive diclofenac sodium 75 mg tablet,delayed release RxNorm: 914801 1 Tablet(s) PO BID 05/31/20 18 2017 Inactive lisinopril 2.5 mg tablet RxNorm: 029075 1 Tablet(s) PO daily 05/31/20 18 2017 Inactive metoprolol succinate ER 50 mg tablet,extended release 24 hr RxNorm: 613745 1 Tablet(s) PO daily 05/31/20 18 2017 Inactive levothyroxine 50 mcg tablet RxNorm: 533918 1 Tablet(s) PO daily 05/31/20 18 2017 Inactive TRUEplus Lancets 30 gauge RxNorm: 1 Lancets Miscellaneous QAM 05/31/20 18 2017 Inactive 100/box Ventolin HFA 90 mcg/actuation aerosol inhaler RxNorm: 309411 2 Puff(s) INH QID 05/31/20 18 2017 Inactive Aleve 220 mg capsule RxNorm: 2456184 1 Capsule(s) PO BID 05/31/20 18 2018 Inactive ranitidine 150 mg tablet RxNorm: 068508 1 Tablet(s) PO BID 05/31/20 18 2017 Inactive gabapentin 300 mg capsule RxNorm: 232521 1 Capsule(s) PO TID as needed 05/31/20 18 2017 Inactive atorvastatin 20 mg tablet RxNorm: 569212 1 Tablet(s) PO QHS 05/31/20 18 2017 Inactive True Metrix Glucose Test Strip RxNorm: 1 Test Strips Miscellaneous QAM 05/31/20 18 2017 Inactive 50/container Calcium 600-D3 Plus 600 mg calcium-800 unit-50 mg tablet RxNorm: 1 Tablet(s) PO daily take an additonal tablet for itching. 05/31/20 18 2017 Inactive hydrochlorothiazide 12.5 mg tablet RxNorm: 984535 1 Tablet(s) PO QAM 05/31/20 18 2017 Inactive Flintstones Complete (iron) 18 mg iron chewable tablet RxNorm: 1 Tablet(s) PO daily 05/31/20 18 2017 Inactive d-mannose oral powder RxNorm: PO 18 2021 Inactive True Metrix Glucose Meter RxNorm: miscellaneous 08/17/20 19 2018 Inactive sertraline 50 mg tablet RxNorm: 806418 1 Tablet(s) PO daily 11/28/19 20 2019 Inactive loperamide 2 mg tablet RxNorm: 605104 oral 09/29/20 19 2018 Inactive Symbicort 160 mcg-4.5 mcg/actuation HFA aerosol inhaler RxNorm: 5907969 2 Puff(s) INH BID 08/17/20 19 2018 Inactive Medication Administered No Medication Administered data Procedures Procedure Codes Date Electrocardiogram CPT-4: 11546 05/14/2020 Tobacco Assessment/Screening CPT-4: TCA Fall Risk Assessment SNOMED CT: 32964852 4 CPT-4: DFRA 01/01/2020 Functional Assessment CPT-4: DFA 01/01/2020 [place] Assessment CPT-4: DSWA 11/04 Patient Health Questionnaire CPT-4: DPHQ [place] Assessment CPT-4: DSWA 10/03 Hypertension CPT-4: HTN 10/17/2019 Fall Risk Assessment SNOMED CT: 73771000 4 CPT-4: DFRA 09/19/2019 Functional Assessment CPT-4: DFA 09/19/2019 Urinalysis, dip stick CPT-4: 83677 06/21/2019 Tobacco Assessment/Screening CPT-4: TCA Patient Health Questionnaire CPT-4: DPHQ AHA/REBECCA Classification Assessment CPT-4: DAHA 04/25/2019 Controlled Substance Report CPT-4: CTRSU 04/03 Urinalysis, dip stick CPT-4: 15952 03/28/2019 Urinalysis, dip stick CPT-4: 13973 03/28/2019 [id number] CPT-4: 33119 Unknown R3S-Hxwzbzghsfcvwyd CPT-4: 50800 Unknown E9T-Ctruvcpfmnqmudd CPT-4: 18253 Unknown H4L-Vttpqcewfwjwwet CPT-4: 22553 Unknown Gynecology Referral SNOMED CT: 693682382 CPT-4: R14 Unknown Reason For Visit No Reason For Visit data Plan of Care Planned Activity Notes Codes Status Date Referral: Pending Gynecology Referral Information Referral Processed Referral: Pending Pulmonolog y Referral Information Referral Processed Referral: Pending Psychiatry Referral Information Referral Initiated Referral: Pending Respirator y Services Referral Information Referral Initiated Referral: Pending Ophthalmol ogy Referral Information Referral [facility]iated [facility] [place] [facility] WPtel: [address] [place] [address] [place] [employer] placed a call out to the patient to notify her that it has been recommended that she be seen by a urologist. Patient agreed to be seen, does not have a provider of choice and no transportation issues. [employer] faxed referral and clinical notes to [facility] in [place], [place] near the patient's home. Patient to [...] and prefers a provider in the [place] or [place] area. [employer] placed a call out to everyone listed in the area and the only location that was able to accept the patient's insurance was [place] [address] [place] [address] and spoke with Maylin. Maylin asked that the patient's referral, face sheet and visit notes be faxed to . [employer] faxed over requested documents. Patient appointment confirmation letter generated and mailed to her home address. Patient to call to schedule an appointment. Processed [facility] W[facility]el: [address] [place], [place] [address] Patient notified that it has been advised that she be seen by Neurology. Patient agreed to be seen and prefers to be seen by a provider in the [place], [place] area. Patient denies any concerns with transportation, and prefers to schedule her own appointment. [employer] [facility] and spoke with Neeraj P: who confirmed that their office is able to accept new patients and the patient's insurance. After confirming the providers fax number, bond underwriter faxed over the patient's referral, and [...]
--- OUTSIDE RECORDS SUMMARY | 2023-12-07 02:12 | XMS_ITS | CCD ---
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 Supervisor Pigment Making Name Role Phone Palomo KING, Anna Primary Care Provider Unav ailable Unavailable Chronic Care Management Unavaila ble Summary Purpose DataExchange Insurance Providers Payer name Policy type / Coverage type Covered republican ID Effective Begin Date Effective End Date SUKI BUTTS MARIA ESTHER [id number] Unknown Unknown Family history Mother Diagnosis Age [...] Unknown Disability 05/31/[address]: 035922422 Has never s moked or chewed tobacco 05/31/[address]: 584182292 Never drinks alco hol 05/31/2018 Has the [...] use ICD-10: Z01.89 ICD-9: V72.85 01/01/2020 Active [place] [facility] ICD-10: H10.029 ICD-9: 372.03 12/29/2019 Active [...] ICD-10: UXZ.01 ICD-9: XZ0.1 04/27/2019 Active Other custodial (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 ICD-10: Z79.899 ICD-9: [...] Headache ICD-10: R51 ICD-9: 784.0 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/2018 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-inflammatories (NSAID) ICD-10: Z79.1 ICD-9: V58.64 06/13/2018 Active Medications Medication Codes Instructions Start Date Stop Date Status Fill Instructions Sudafed 12 Hour 120 mg tablet,extended release RxNorm: 3039407 TAKE 1 TABLET BY MOUTH EVERY 12 HOURS NEEDED 06/11/20 20 2019 Inactive hydrochlorothiazide 25 mg tablet RxNorm: 834288 TAKE (1) TABLET BY MOUTH EVERY DAY 06/11/20 20 2019 Inactive omeprazole 20 mg capsule,delayed release RxNorm: 386549 TAKE 1 CAPSULE BY MOUTH EVERY DAY 05/14/20 20 2020 Inactive metformin 500 mg tablet RxNorm: 047617 1 Tablet(s) Oral every day 05/12/20 20 2019 Inactive True Metrix Glucose Test Strip RxNorm: 1 Test Strips Miscellaneous two times a day as needed 04/17/20 No Stop Date Active metformin 500 mg tablet RxNorm: 187053 1 Tablet(s) Oral every day 04/17/20 20 2019 Inactive diclofenac sodium 75 mg tablet,delayed release RxNorm: 515853 1 Tablet(s) PO BID 04/14/20 20 2021 Inactive This refill negates all other refills of this medication Sudafed 12 Hour 120 mg tablet,extended release RxNorm: 3953386 TAKE 1 TABLET BY MOUTH EVERY 12 HOURS NEEDED 03/14/20 20 2019 Inactive True Metrix Glucose Test Strip RxNorm: 1 Test Strips Miscellaneous every morning 03/13/20 20 2019 Inactive 100/container loperamide 2 mg tablet RxNorm: 828205 1 Tablet(s) Oral as needed take one tablet after each loose stool, maximum of 8 tablets in 24 hours 02/22/20 20 2019 Inactive True Metrix Glucose Test Strip RxNorm: 1 Test Strips Miscellaneous QAM 02/22/20 20 2019 Inactive 100/container cetirizine 10 mg tablet RxNorm: 3685725 1 Tablet(s) PO daily 01/17/20 20 2019 Inactive levothyroxine 50 mcg tablet RxNorm: 973510 1 Tablet(s) PO daily 01/17/20 20 2020 Inactive gabapentin 300 mg capsule RxNorm: 668804 1 Capsule(s) PO TID 01/17/20 20 2019 Inactive loperamide 2 mg tablet RxNorm: 108777 1 Tablet(s) Oral as needed take one tablet after each loose stool, maximum of 8 tablets in 24 hours 01/17/20 20 2019 Inactive quetiapine 100 mg tablet RxNorm: 897066 1 Tablet(s) Oral every night at bedtime 01/17/20 20 2019 Inactive lisinopril 2.5 mg tablet RxNorm: 419968 1 Tablet(s) PO daily 01/15/20 20 2020 Inactive Singulair 10 mg tablet RxNorm: 892399 1 Tablet(s) PO daily 01/15/20 20 2020 Inactive levothyroxine 50 mcg tablet RxNorm: 939502 1 Tablet(s) PO daily 01/15/20 20 2019 Inactive gabapentin 300 mg capsule RxNorm: 108793 1 Capsule(s) PO TID 01/15/20 20 2019 Inactive cetirizine 10 mg tablet RxNorm: 0977688 1 Tablet(s) PO daily 01/15/20 20 2019 Inactive gentamicin 0.3 % eye drops RxNorm: 961542 1 Drop(s) ophthalmic (eye) four times a day 12/29/19 20 2019 Inactive gentamicin 0.3 % eye drops RxNorm: 507089 1 Drop(s) ophthalmic (eye) four times a day 12/29/19 20 2019 Inactive gentamicin 0.3 % eye drops RxNorm: 954165 1 Drop(s) ophthalmic (eye) four times a day 12/29/19 20 2019 Inactive hydrochlorothiazide 25 mg tablet RxNorm: 368513 1 Tablet(s) Oral every day 12/21/19 20 2019 Inactive Sudafed 12 Hour 120 mg tablet,extended release RxNorm: 2109708 TAKE (1) TABLET BY MOUTH EVERY 12 HOURS NEEDED 12/21/19 20 2019 Inactive loperamide 2 mg tablet RxNorm: 375037 1 Tablet(s) Oral as needed take one tablet after each loose stool, maximum of 8 tablets in 24 hours 12/11/19 20 2019 Inactive loperamide 2 mg tablet RxNorm: 808187 1 Tablet(s) Oral as needed take one tablet after each loose stool, maximum of 8 tablets in 24 hours 12/11/19 20 2019 Inactive atorvastatin 40 mg tablet RxNorm: 166720 1 Tablet(s) Oral every day 11/29/19 20 2020 Inactive quetiapine 100 mg tablet RxNorm: 637162 1 Tablet(s) Oral every night at bedtime 11/28/19 20 2019 Inactive sertraline 100 mg tablet RxNorm: 468734 1 Tablet(s) Oral 11/28/19 20 2019 Inactive omeprazole 20 mg capsule,delayed release RxNorm: 342976 1 Capsule(s) Oral every day 11/20/19 20 2019 Inactive amoxicillin 250 mg capsule RxNorm: 035098 1 Capsule(s) Oral three times a day 11/07/19 20 2019 Inactive multivitamin with iron-mineral tablet RxNorm: 1 Tablet(s) Oral every day 10/29/19 20 2021 Inactive cetirizine 10 mg tablet RxNorm: 5718272 1 Tablet(s) PO daily 10/20/19 20 2019 Inactive This refill negates all other refills of this medication. Please do not auto refill Singulair 10 mg tablet RxNorm: 124574 1 Tablet(s) PO daily 10/20/19 20 2019 Inactive This refill negates all other refills of this medication gabapentin 300 mg capsule RxNorm: 909957 1 Capsule(s) PO TID 10/20/19 20 2019 Inactive lisinopril 2.5 mg tablet RxNorm: 949017 1 Tablet(s) PO daily 10/20/19 20 2019 Inactive levothyroxine 50 mcg tablet RxNorm: 682339 1 Tablet(s) PO daily 10/20/19 20 2019 Inactive This refill negates all other refills of this medication fenugreek seed extract 500 mg capsule RxNorm: 1 Capsule(s) Oral three times a day 10/17/19 20 2021 Inactive hydrochlorothiazide 25 mg tablet RxNorm: 837954 1 Tablet(s) Oral every day 10/17/19 20 2019 Inactive Alcohol Prep Pads RxNorm: 722358 1 Patch TOP QAM 10/16/19 20 2020 Inactive loperamide 2 mg tablet RxNorm: 406847 1 Tablet(s) Oral as needed take one [...] 2019 Inactive hydrochlorothiazide 25 mg tablet RxNorm: 146747 1 Tablet(s) Oral every day 09/19/20 19 2019 Inactive Sudafed 12 Hour 120 mg tablet,extended release RxNorm: 2196800 1 Tablet(s) Oral every 12 hours as needed 09/11/20 19 2018 Inactive omeprazole 20 mg capsule,delayed release RxNorm: 933215 1 Capsule(s) Oral every day 09/07/20 19 2019 Inactive Sudafed 12 Hour 120 mg tablet,extended release RxNorm: 9198536 1 Tablet(s) Oral every 12 hours as needed 09/04/20 19 2018 Inactive pantoprazole 40 mg tablet,delayed release RxNorm: 522175 1 Tablet(s) Oral every day 08/24/20 19 2018 Inactive discontinue any other H2Blkr. and PPI albuterol sulfate 2.5 mg/3 mL (0.083 %) solution for nebulization RxNorm: 620762 1 Vial Inhalation every four hours as needed as needed for dyspnea 08/17/20 19 2019 Inactive 60/box. This refill negates all other refills of this medication. Please do not fill early. Please do not auto refill. Symbicort 160 mcg-4.5 mcg/actuation HFA aerosol inhaler RxNorm: 1195922 2 Puff(s) INH BID 08/17/20 No Stop Date Active Alcohol Prep Pads RxNorm: 105549 1 Patch TOP QAM 08/17/20 19 2019 Inactive Ventolin HFA 90 mcg/actuation aerosol inhaler RxNorm: 753304 2 Puff(s) INH QID 08/09/20 19 2019 Inactive Please do not fill early. Please do not auto refill. This refill negates all other refills of this medication True Metrix Glucose Test Strip RxNorm: 1 Test Strips Miscellaneous QAM 08/09/20 19 2019 Inactive 100/container atorvastatin 40 mg tablet RxNorm: 652632 1 Tablet(s) Oral every day 07/04/20 19 2019 Inactive levmetamfetamine 50 mg nasal inhaler RxNorm: 1 Unit(s) NASAL Q3-4H Do not use more than every 3 hours or 8 times/24hours 06/26/20 19 2021 Inactive Please do not auto refill. This refill negates all other refills of this medication buspirone 7.5 mg tablet RxNorm: 287171 1 Tablet(s) PO BID 06/26/20 19 2020 Inactive This refill negates all other refills of this medication hydrochlorothiazide 12.5 mg tablet RxNorm: 367517 1 Tablet(s) PO QAM 06/26/20 19 2019 Inactive Ventolin HFA 90 mcg/actuation aerosol inhaler RxNorm: 856755 2 Puff(s) INH QID 06/26/20 19 2018 Inactive Please do not fill early. Please do not auto refill. This refill negates all other refills of this medication Singulair 10 mg tablet RxNorm: 346952 1 Tablet(s) PO daily 06/26/20 19 2019 Inactive This refill negates all other refills of this medication cetirizine 10 mg tablet RxNorm: 8685646 1 Tablet(s) PO daily 06/26/20 19 2019 Inactive This refill negates all other refills of this medication. Please do not auto refill levothyroxine 50 mcg tablet RxNorm: 448733 1 Tablet(s) PO daily 06/26/20 19 2019 Inactive This refill negates all other refills of this medication diclofenac sodium 75 mg tablet,delayed release RxNorm: 786437 1 Tablet(s) PO BID 06/26/20 19 2019 Inactive This refill negates all other refills of this medication ranitidine 150 mg tablet RxNorm: 332162 1 Tablet(s) PO BID 06/26/20 19 2018 Inactive This refill negates all other refills of this medication Calcium 600-D3 Plus (mag-zinc) 600 mg calcium-800 unit-50 mg tablet RxNorm: 1 Tablet(s) PO daily take an additonal tablet for itching. 06/26/20 19 2018 Inactive This refill negates all other refills of this medication albuterol sulfate 2.5 mg/3 mL (0.083 %) solution for nebulization RxNorm: 134552 1 Vial INH QID 06/26/20 19 2018 Inactive 60/box. This refill negates all other refills of this medication. Please do not fill early. Please do not auto refill. lisinopril 2.5 mg tablet RxNorm: 028397 1 Tablet(s) PO daily 06/21/20 19 2019 Inactive gabapentin 300 mg capsule RxNorm: 355716 1 Capsule(s) PO TID 06/21/20 19 2019 Inactive atorvastatin 20 mg tablet RxNorm: 560730 1 Tablet(s) PO QHS 06/07/20 19 2018 Inactive This refill negates all other refills of this medication TRUEplus Lancets 30 gauge RxNorm: 1 Lancets Miscellaneous QAM 08/2018 Inactive 100/box gabapentin 300 mg capsule RxNorm: 441198 1 Capsule(s) PO TID 05/03/20 19 2018 Inactive Flnickolas Complete (iron) 18 mg iron chewable tablet RxNorm: 1 Tablet(s) PO daily 04/04/202021 Inactive This refill negates all other refills of this medication gabapentin 300 mg capsule RxNorm: 212976 1 Capsule(s) PO TID as needed 02/01/202018 Inactive True Metrix Glucose Test Strip RxNorm: 1 Test Strips Miscellaneous QAM 02/01/20 19 2018 Inactive 100/container Alcohol Prep Pads RxNorm: 662862 1 Patch TOP QAM 02/01/202018 Inactive TRUEplus Lancets 30 gauge RxNorm: 1 Lancets Miscellaneous QAM 02/01/20 19 2018 Inactive 100/box lisinopril 2.5 mg tablet RxNorm: 635368 1 Tablet(s) PO daily 12/28/192018 Inactive ranitidine 150 mg tablet RxNorm: 348074 1 Tablet(s) PO BID 10/21/192018 Inactive This refill negates all other refills of this medication albuterol sulfate 2.5 mg/3 mL (0.083 %) solution for nebulization RxNorm: 731235 1 Vial INH QID 10/21/192018 Inactive 60/box. [...] this medication gabapentin 300 mg capsule RxNorm: 255194 1 Capsule(s) PO TID as needed 10/21/192018 Inactive atorvastatin 20 mg tablet RxNorm: 300771 1 Tablet(s) PO QHS 10/21/192018 Inactive This refill negates all other refills of this medication trazodone 50 mg tablet RxNorm: 403833 1 Tablet(s) PO QHS 10/21/192018 Inactive This refill negates all other refills of this medication Ventolin HFA 90 mcg/actuation aerosol inhaler RxNorm: 299843 2 Puff(s) INH QID 10/21/192018 Inactive Please do not fill early. Please do not auto refill. This refill negates all other refills of this medication Calcium 600-D3 Plus 600 mg calcium-800 unit-50 mg tablet RxNorm: 1 Tablet(s) PO daily take an additonal tablet for itching. 10/21/192018 Inactive This refill negates all other refills of this medication Singulair 10 mg tablet RxNorm: 624884 1 Tablet(s) PO daily 10/21/192018 Inactive This refill negates all other refills of this medication buspirone 7.5 mg tablet RxNorm: 651657 1 Tablet(s) PO BID 10/21/192018 Inactive This refill negates all other refills of this medication diclofenac sodium 75 mg tablet,delayed release RxNorm: 978881 1 Tablet(s) PO BID 10/21/192018 Inactive This refill negates all other refills of this medication hydrochlorothiazide 12.5 mg tablet RxNorm: 692561 1 Tablet(s) PO QAM 10/21/192018 Inactive metoprolol succinate ER 50 mg tablet,extended release 24 hr RxNorm: 294348 1 Tablet(s) PO daily 10/21/192018 Inactive This refill negates all other refills of this medication levothyroxine 50 mcg tablet RxNorm: 671682 1 Tablet(s) PO daily 10/21/192018 Inactive This refill negates all other refills of this medication cetirizine 10 mg tablet RxNorm: 5013566 1 Tablet(s) PO daily 10/21/192018 Inactive This refill negates all other refills of this medication. Please do not auto refill Flintstones Complete (iron) 18 mg iron chewable tablet RxNorm: 1 Tablet(s) PO daily 10/21/19 19 2018 Inactive This refill negates all other refills of this medication buspirone 7.5 mg tablet RxNorm: 434366 1 Tablet(s) PO BID 10/12/19 19 2018 Inactive cetirizine 10 mg tablet RxNorm: 4006535 1 Tablet(s) PO daily 09/28/20 18 2018 Inactive Guaiasorb DM 10 mg-100 mg/5 mL oral liquid RxNorm: 968503 10 Milliliter(s) PO As needed every 4 hr 09/24/202018 Inactive Vicks Vaporub 4.7 %-1.2 %-2.6 % topical ointment RxNorm: 5650510 1 Application TOP TID 09/24/20 18 2018 Inactive levmetamfetamine 50 mg nasal inhaler RxNorm: 1 Unit(s) NASAL Q3-4H 09/24/20 18 2017 Inactive sertraline 50 mg tablet RxNorm: 185177 1 Tablet(s) PO daily 09/09/20 18 2018 Inactive Please note dose trazodone 50 mg tablet RxNorm: 885695 1 Tablet(s) PO QHS 09/06/20 18 2018 Inactive sertraline 50 mg tablet RxNorm: 859138 1 Tablet(s) PO daily 09/06/20 18 2017 Inactive amoxicillin 500 mg tablet RxNorm: 454909 1 Tablet(s) PO Q12H 08/31/20 18 2017 Inactive albuterol sulfate 2.5 mg/3 mL (0.083 %) solution for nebulization RxNorm: 814807 1 Vial INH QID 08/10/20 18 2018 Inactive 60/box. Please do not fill early. Please do not auto refill. Prozac 10 mg capsule RxNorm: 975793 1 Capsule(s) PO daily 08/09/20 18 2017 Inactive buspirone 7.5 mg tablet RxNorm: 908999 1 Tablet(s) PO BID 08/09/20 18 2018 Inactive gabapentin 300 mg capsule RxNorm: 901504 1 Capsule(s) PO TID as needed 08/01/20 18 2018 Inactive hydrochlorothiazide 12.5 mg tablet RxNorm: 523990 1 Tablet(s) PO QAM 08/01/20 18 2018 Inactive ranitidine 150 mg tablet RxNorm: 484711 1 Tablet(s) PO BID 08/01/20 18 2018 Inactive Macrobid 100 mg capsule RxNorm: 352951 1 Capsule(s) PO Q12H 06/21/20 18 2017 Inactive Singulair 10 mg tablet RxNorm: 337389 1 Tablet(s) PO daily 06/14/20 18 2018 Inactive Ventolin HFA 90 mcg/actuation aerosol inhaler RxNorm: 6959827 2 Puff(s) INH QID 06/14/20 18 2018 Inactive Singulair 10 mg tablet RxNorm: 637915 1 Tablet(s) PO daily 06/14/20 18 2017 Inactive buspirone 7.5 mg tablet RxNorm: 196215 1 Tablet(s) PO BID 06/14/20 18 2017 Inactive Prozac 10 mg capsule RxNorm: 032728 1 Capsule(s) PO daily 06/14/20 18 2017 Inactive Neilmed Pediatric Sinus Rinse Refill packet RxNorm: 1 Unit Dose NASAL PRN 05/31/20 18 2021 Inactive diclofenac sodium 75 mg tablet,delayed release RxNorm: 796384 1 Tablet(s) PO BID 05/31/20 18 2017 Inactive lisinopril 2.5 mg tablet RxNorm: 811556 1 Tablet(s) PO daily 05/31/20 18 2017 Inactive metoprolol succinate ER 50 mg tablet,extended release 24 hr RxNorm: 355450 1 Tablet(s) PO daily 05/31/20 18 2017 Inactive levothyroxine 50 mcg tablet RxNorm: 924050 1 Tablet(s) PO daily 05/31/20 18 2017 Inactive TRUEplus Lancets 30 gauge RxNorm: 1 Lancets Miscellaneous QAM 05/31/20 18 2017 Inactive 100/box Ventolin HFA 90 mcg/actuation aerosol inhaler RxNorm: 517642 2 Puff(s) INH QID 05/31/20 18 2017 Inactive Aleve 220 mg capsule RxNorm: 7220383 1 Capsule(s) PO BID 05/31/20 18 2018 Inactive ranitidine 150 mg tablet RxNorm: 787948 1 Tablet(s) PO BID 05/31/20 18 2017 Inactive gabapentin 300 mg capsule RxNorm: 439525 1 Capsule(s) PO TID as needed 05/31/20 18 2017 Inactive atorvastatin 20 mg tablet RxNorm: 468177 1 Tablet(s) PO QHS 05/31/20 18 2017 Inactive True Metrix Glucose Test Strip RxNorm: 1 Test Strips Miscellaneous QAM 05/31/20 18 2017 Inactive 50/container Calcium 600-D3 Plus 600 mg calcium-800 unit-50 mg tablet RxNorm: 1 Tablet(s) PO daily take an additonal tablet for itching. 05/31/20 18 2017 Inactive hydrochlorothiazide 12.5 mg tablet RxNorm: 345345 1 Tablet(s) PO QAM 05/31/20 18 2017 Inactive Flintstones Complete (iron) 18 mg iron chewable tablet RxNorm: 1 Tablet(s) PO daily 05/31/20 18 2017 Inactive d-mannose oral powder RxNorm: PO 18 2021 Inactive True Metrix Glucose Meter RxNorm: miscellaneous 08/17/20 19 2018 Inactive sertraline 50 mg tablet RxNorm: 748090 1 Tablet(s) PO daily 11/28/19 20 2019 Inactive loperamide 2 mg tablet RxNorm: 934070 oral 09/29/20 19 2018 Inactive Symbicort 160 mcg-4.5 mcg/actuation HFA aerosol inhaler RxNorm: 3450767 2 Puff(s) INH BID 08/17/20 19 2018 Inactive Medication Administered No Medication Administered data Procedures Procedure Codes Date Electrocardiogram CPT-4: 52876 05/14/2020 Tobacco Assessment/Screening CPT-4: TCA Fall Risk Assessment SNOMED CT: 33960703 4 CPT-4: DFRA 01/01/2020 Functional Assessment CPT-4: DFA 01/01/2020 [place] F[place] Assessment CPT-4: DSWA 11/04 Patient Health Questionnaire CPT-4: DPHQ [place] Fany Assessment CPT-4: DSWA 10/03 Hypertension CPT-4: HTN 10/17/2019 Fall Risk Assessment SNOMED CT: 52901689 4 CPT-4: DFRA 09/19/2019 Functional Assessment CPT-4: DFA 09/19/2019 Urinalysis, dip stick CPT-4: 74576 06/21/2019 Tobacco Assessment/Screening CPT-4: TCA Patient Health Questionnaire CPT-4: DPHQ AHA/REBECCA Classification Assessment CPT-4: DAHA 04/25/2019 Controlled Substance Report CPT-4: CTRSU 04/03 Urinalysis, dip stick CPT-4: 03826 03/28/2019 Urinalysis, dip stick CPT-4: 98559 03/28/2019 [id number] CPT-4: 30864 Unknown [id number] CPT-4: 26381 Unknown F3S-Muooapjhavpfaco CPT-4: 38486 Unknown [id number]-Jzxabdakwwjbzwu CPT-4: 32995 Unknown Gynecology Referral SNOMED CT: 696840134 CPT-4: R14 Unknown Reason For Visit No Reason For Visit data Plan of Care Planned Activity Notes Codes Status Date Referral: Pending Gynecology Referral Information Referral Processed Referral: Pending Pulmonolog y Referral Information Referral Processed Referral: Pending Psychiatry Referral Information Referral Initiated Referral: Pending Respirator y Services Referral Information Referral Initiated Referral: Pending Ophthalmol ogy Referral Information Ref[facility] WPtel: [address] [place] [address] [place] Edi Architect placed a call out to the patient to notify her that it has been recommended that she be seen by a urologist. Patient agreed to be seen, does not have a provider of choice and no transportation issues. Edi Architect faxed referral and clinical notes to [facility] in [place], [place] near the patient's home. Patient to [...] prefers a provider in the [place] or [place] area. Edi Architect placed a call out to everyone listed in the area and the only location that was able to accept the patient's insurance was [place] [address] [place] [address] and spoke with Maylin. Maylin asked that the patient's referral, face sheet and visit notes be faxed to . Edi Architect faxed over requested documents. Patient appointment confirmation letter generated and mailed to her home address. Patient to call to schedule an appointment. [facility] W[facility]: [address] [place], [place] [address] Patient notified that it has been advised that she be seen by Neurology. Patient agreed to be seen and prefers to be seen by a provider in the [place], [place] area. Patient denies any concerns with transportation, and prefers to schedule her own appointment. Edi Architect placed a call out to [facility] and spoke with Neeraj P: [...]
--- OUTSIDE RECORDS SUMMARY | 2023-12-07 02:12 | XMS_ITS | CCD ---
Author Name Leena Culver NP Address [address] [place] [address] [place] [address] Phone Organization [email or web address] Phone Care Team Providers Care Scrub Nurse Name Role Phone Anna Culver NP Primary Care Provider Unav ailable Unavailable Chronic Care Management Unavaila ble Summary Purpose DataExchange Insurance Providers Payer name Policy type / Coverage type Covered libertarian ID Effective Begin Date Effective End Date SUKI MAYO [id number] Unknown Unknown Family history Mother Diagnosis Age [...] Unknown Disability 05/31/[address]: 322507401 Has never s moked or chewed tobacco 05/31/[address]: 150085538 Never drinks alco hol 05/31/2018 Has the [...] Effective Dates Condition St at[facility] Encounter for screening, unspecified ICD-10: Z13.9 ICD-9: V82.9 09/05/2018 Active Essential (primary) hypertension ICD-10: I10 ICD-9: 401.9 10/03/2018 Active Type 2 diabetes mellitus wit h peripheral neuropathy ICD-10: E11.42 ICD-9: 250.60 11/28/2019 Active (Z12.4-V76.2) Encounter for screening for malignant [...] ICD-10: E03. 9 ICD-9: 244.9 09/05/2018 Active Right wrist pain ICD-10: M25.531 ICD-9: [...] use ICD-10: Z01.89 ICD-9: V72.85 01/01/2020 Active [facility] eye ICD-10: H10.029 ICD-9: 372.03 12/29/2019 Active [...] immunization ICD-10: Z23 ICD-9: V03.9 04/25/2019 Active Polyneuropathy, unspecified ICD-10: G62. 9 ICD-9: 356.9 05/30/2018 Active Patient Not Seen ICD-10: UXZ.01 ICD-9: XZ0.1 04/27/2019 Active Other nursing home (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 [...] Headache ICD-10: R51 ICD-9: 784.0 10/03/2018 Active [facility]DC (current) use of non-steroidal anti-inflammatories (NSAID) ICD-10: Z79.1 ICD-9: V58.64 06/13/2018 Active Medications Medication Codes Instructions Start Date Stop Date Status Fill Instructions metformin 500 mg tablet RxNorm: 949544 1 Tablet(s) Oral two times a day 07/08/20 20 2019 Inactive loperamide 2 mg tablet RxNorm: 989677 1 Tablet(s) Oral as needed take one tablet after each loose stool, maximum of 8 tablets in 24 hours 06/24/20 20 2021 Inactive Sudafed 12 Hour 120 mg tablet,extended release RxNorm: 6189650 TAKE 1 TABLET BY MOUTH EVERY 12 HOURS NEEDED 06/11/20 20 2019 Inactive hydrochlorothiazide 25 mg tablet RxNorm: 980387 TAKE (1) TABLET BY MOUTH EVERY DAY 06/11/20 20 2019 Inactive omeprazole 20 mg capsule,delayed release RxNorm: 514938 TAKE 1 CAPSULE BY MOUTH EVERY DAY 05/14/20 20 2020 Inactive metformin 500 mg tablet RxNorm: 497946 1 Tablet(s) Oral every day 05/12/20 20 2019 Inactive True Metrix Glucose Test Strip RxNorm: 1 Test Strips Miscellaneous two times a day as needed 04/17/20 No Stop Date Active metformin 500 mg tablet RxNorm: 686699 1 Tablet(s) Oral every day 04/17/20 20 2019 Inactive diclofenac sodium 75 mg tablet,delayed release RxNorm: 155238 1 Tablet(s) PO BID 04/14/20 20 2021 Inactive This refill negates all other refills of this medication Sudafed 12 Hour 120 mg tablet,extended release RxNorm: 6690426 TAKE 1 TABLET BY MOUTH EVERY 12 HOURS NEEDED 03/14/20 20 2019 Inactive True Metrix Glucose Test Strip RxNorm: 1 Test Strips Miscellaneous every morning 03/13/20 20 2019 Inactive 100/container True Metrix Glucose Test Strip RxNorm: 1 Test Strips Miscellaneous QAM 02/22/20 20 2019 Inactive 100/container loperamide 2 mg tablet RxNorm: 746313 1 Tablet(s) Oral as needed take one tablet after each loose stool, maximum of 8 tablets in 24 hours 02/22/20 20 2019 Inactive cetirizine 10 mg tablet RxNorm: 9212687 1 Tablet(s) PO daily 01/17/20 20 2019 Inactive levothyroxine 50 mcg tablet RxNorm: 308526 1 Tablet(s) PO daily 01/17/20 20 2020 Inactive gabapentin 300 mg capsule RxNorm: 617296 1 Capsule(s) PO TID 01/17/20 20 2019 Inactive loperamide 2 mg tablet RxNorm: 797575 1 Tablet(s) Oral as needed take one tablet after each loose stool, maximum of 8 tablets in 24 hours 01/17/20 20 2019 Inactive quetiapine 100 mg tablet RxNorm: 517047 1 Tablet(s) Oral every night at bedtime 01/17/20 20 2019 Inactive lisinopril 2.5 mg tablet RxNorm: 225339 1 Tablet(s) PO daily 01/15/20 20 2020 Inactive Singulair 10 mg tablet RxNorm: 803778 1 Tablet(s) PO daily 01/15/20 20 2020 Inactive levothyroxine 50 mcg tablet RxNorm: 370089 1 Tablet(s) PO daily 01/15/20 20 2019 Inactive gabapentin 300 mg capsule RxNorm: 324382 1 Capsule(s) PO TID 01/15/20 20 2019 Inactive cetirizine 10 mg tablet RxNorm: 1516049 1 Tablet(s) PO daily 01/15/20 20 2019 Inactive gentamicin 0.3 % eye drops RxNorm: 063730 1 Drop(s) ophthalmic (eye) four times a day 12/29/19 20 2019 Inactive gentamicin 0.3 % eye drops RxNorm: 459033 1 Drop(s) ophthalmic (eye) four times a day 12/29/19 20 2019 Inactive gentamicin 0.3 % eye drops RxNorm: 176102 1 Drop(s) ophthalmic (eye) four times a day 12/29/19 20 2019 Inactive hydrochlorothiazide 25 mg tablet RxNorm: 234830 1 Tablet(s) Oral every day 12/21/19 20 2019 Inactive Sudafed 12 Hour 120 mg tablet,extended release RxNorm: 4820289 TAKE (1) TABLET BY MOUTH EVERY 12 HOURS NEEDED 12/21/19 20 2019 Inactive loperamide 2 mg tablet RxNorm: 555105 1 Tablet(s) Oral as needed take one tablet after each loose stool, maximum of 8 tablets in 24 hours 12/11/19 20 2019 Inactive loperamide 2 mg tablet RxNorm: 762408 1 Tablet(s) Oral as needed take one tablet after each loose stool, maximum of 8 tablets in 24 hours 12/11/19 20 2019 Inactive atorvastatin 40 mg tablet RxNorm: 841720 1 Tablet(s) Oral every day 11/29/19 20 2020 Inactive quetiapine 100 mg tablet RxNorm: 539631 1 Tablet(s) Oral every night at bedtime 11/28/19 20 2019 Inactive sertraline 100 mg tablet RxNorm: 640202 1 Tablet(s) Oral 11/28/19 20 2019 Inactive omeprazole 20 mg capsule,delayed release RxNorm: 685993 1 Capsule(s) Oral every day 11/20/19 20 2019 Inactive amoxicillin 250 mg capsule RxNorm: 180610 1 Capsule(s) Oral three times a day 11/07/19 20 2019 Inactive multivitamin with iron-mineral tablet RxNorm: 1 Tablet(s) Oral every day 10/29/19 20 2021 Inactive cetirizine 10 mg tablet RxNorm: 0574226 1 Tablet(s) PO daily 10/20/19 20 2019 Inactive This refill negates all other refills of this medication. Please do not auto refill Singulair 10 mg tablet RxNorm: 110216 1 Tablet(s) PO daily 10/20/19 20 2019 Inactive This refill negates all other refills of this medication gabapentin 300 mg capsule RxNorm: 385821 1 Capsule(s) PO TID 10/20/19 20 2019 Inactive lisinopril 2.5 mg tablet RxNorm: 071438 1 Tablet(s) PO daily 10/20/19 20 2019 Inactive levothyroxine 50 mcg tablet RxNorm: 557319 1 Tablet(s) PO daily 10/20/19 20 2019 Inactive This refill negates all other refills of this medication fenugreek seed extract 500 mg capsule RxNorm: 1 Capsule(s) Oral three times a day 10/17/19 20 2021 Inactive hydrochlorothiazide 25 mg tablet RxNorm: 900502 1 Tablet(s) Oral every day 10/17/192019 Inactive Alcohol Prep Pads RxNorm: 564872 1 Patch TOP QAM 10/16/19 20 2020 Inactive loperamide 2 mg tablet RxNorm: 228483 1 Tablet(s) Oral as needed take one [...] 2019 Inactive hydrochlorothiazide 25 mg tablet RxNorm: 196263 1 Tablet(s) Oral every day 09/19/20 19 2019 Inactive Sudafed 12 Hour 120 mg tablet,extended release RxNorm: 3120170 1 Tablet(s) Oral every 12 hours as needed 09/11/20 2018 Inactive omeprazole 20 mg capsule,delayed release RxNorm: 567325 1 Capsule(s) Oral every day 09/07/20 19 2019 Inactive Sudafed 12 Hour 120 mg tablet,extended release RxNorm: 2665237 1 Tablet(s) Oral every 12 hours as needed 09/04/20 19 2018 Inactive pantoprazole 40 mg tablet,delayed release RxNorm: 057336 1 Tablet(s) Oral every day 08/24/202018 Inactive discontinue any other H2Blkr. and PPI albuterol sulfate 2.5 mg/3 mL (0.083 %) solution for nebulization RxNorm: 514319 1 Vial Inhalation every four hours as needed as needed for dyspnea 08/17/202019 Inactive 60/box. This refill negates all other refills of this medication. Please do not fill early. Please do not auto refill. Symbicort 160 mcg-4.5 mcg/actuation HFA aerosol inhaler RxNorm: 7313788 2 Puff(s) INH BID 08/17/20 19 No Stop Date Active Alcohol Prep Pads RxNorm: 605479 1 Patch TOP QAM 08/17/20 19 2019 Inactive Ventolin HFA 90 mcg/actuation aerosol inhaler RxNorm: 876957 2 Puff(s) INH QID 08/09/20 19 2019 Inactive Please do not fill early. Please do not auto refill. This refill negates all other refills of this medication True Metrix Glucose Test Strip RxNorm: 1 Test Strips Miscellaneous QAM 08/09/20 19 2019 Inactive 100/container atorvastatin 40 mg tablet RxNorm: 339415 1 Tablet(s) Oral every day 07/04/20 19 2019 Inactive levmetamfetamine 50 mg nasal inhaler RxNorm: 1 Unit(s) NASAL Q3-4H Do not use more than every 3 hours or 8 times/24hours 06/26/20 19 2021 Inactive Please do not auto refill. This refill negates all other refills of this medication buspirone 7.5 mg tablet RxNorm: 542234 1 Tablet(s) PO BID 06/26/20 19 2020 Inactive This refill negates all other refills of this medication hydrochlorothiazide 12.5 mg tablet RxNorm: 722397 1 Tablet(s) PO QAM 06/26/20 19 2019 Inactive Ventolin HFA 90 mcg/actuation aerosol inhaler RxNorm: 033450 2 Puff(s) INH QID 06/26/20 19 2018 Inactive Please do not fill early. Please do not auto refill. This refill negates all other refills of this medication Singulair 10 mg tablet RxNorm: 850869 1 Tablet(s) PO daily 06/26/20 19 2019 Inactive This refill negates all other refills of this medication cetirizine 10 mg tablet RxNorm: 8061810 1 Tablet(s) PO daily 06/26/20 19 2019 Inactive This refill negates all other refills of this medication. Please do not auto refill levothyroxine 50 mcg tablet RxNorm: 202928 1 Tablet(s) PO daily 06/26/20 19 2019 Inactive This refill negates all other refills of this medication diclofenac sodium 75 mg tablet,delayed release RxNorm: 780908 1 Tablet(s) PO BID 06/26/20 19 2019 Inactive This refill negates all other refills of this medication ranitidine 150 mg tablet RxNorm: 588165 1 Tablet(s) PO BID 06/26/20 19 2018 Inactive This refill negates all other refills of this medication Calcium 600-D3 Plus (mag-zinc) 600 mg calcium-800 unit-50 mg tablet RxNorm: 1 Tablet(s) PO daily take an additonal tablet for itching. 06/26/20 19 2018 Inactive This refill negates all other refills of this medication albuterol sulfate 2.5 mg/3 mL (0.083 %) solution for nebulization RxNorm: 498741 1 Vial INH QID 06/26/20 19 2018 Inactive 60/box. This refill negates all other refills of this medication. Please do not fill early. Please do not auto refill. lisinopril 2.5 mg tablet RxNorm: 062083 1 Tablet(s) PO daily 06/21/20 19 2019 Inactive gabapentin 300 mg capsule RxNorm: 866248 1 Capsule(s) PO TID 06/21/20 19 2019 Inactive atorvastatin 20 mg tablet RxNorm: 351512 1 Tablet(s) PO QHS 06/07/20 19 2018 Inactive This refill negates all other refills of this medication TRUEplus Lancets 30 gauge RxNorm: 1 Lancets Miscellaneous QAM 05/29/20 19 2018 Inactive 100/box gabapentin 300 mg capsule RxNorm: 147511 1 Capsule(s) PO TID 05/03/20 19 2018 Inactive Flintstones Complete (iron) 18 mg iron chewable tablet RxNorm: 1 Tablet(s) PO daily 04/04/20 19 2021 Inactive This refill negates all other refills of this medication gabapentin 300 mg capsule RxNorm: 184095 1 Capsule(s) PO TID as needed 02/01/20 19 2018 Inactive True Metrix Glucose Test Strip RxNorm: 1 Test Strips Miscellaneous QAM 02/01/20 19 2018 Inactive 100/container Alcohol Prep Pads RxNorm: 648154 1 Patch TOP QAM 02/01/20 19 2018 Inactive TRUEplus Lancets 30 gauge RxNorm: 1 Lancets Miscellaneous QAM 02/01/20 19 2018 Inactive 100/box lisinopril 2.5 mg tablet RxNorm: 375811 1 Tablet(s) PO daily 12/28/19 19 2018 Inactive ranitidine 150 mg tablet RxNorm: 739228 1 Tablet(s) PO BID 10/21/19 19 2018 Inactive This refill negates all other refills of this medication albuterol sulfate 2.5 mg/3 mL (0.083 %) solution for nebulization RxNorm: 784837 1 Vial INH QID 10/21/19 19 2018 [...] this medication gabapentin 300 mg capsule RxNorm: 260659 1 Capsule(s) PO TID as needed 10/21/192018 Inactive atorvastatin 20 mg tablet RxNorm: 659334 1 Tablet(s) PO QHS 10/21/192018 Inactive This refill negates all other refills of this medication trazodone 50 mg tablet RxNorm: 594023 1 Tablet(s) PO QHS 10/21/192018 Inactive This refill negates all other refills of this medication Ventolin HFA 90 mcg/actuation aerosol inhaler RxNorm: 477936 2 Puff(s) INH QID 10/21/192018 Inactive Please do not fill early. Please do not auto refill. This refill negates all other refills of this medication Calcium 600-D3 Plus 600 mg calcium-800 unit-50 mg tablet RxNorm: 1 Tablet(s) PO daily take an additonal tablet for itching. 10/21/192018 Inactive This refill negates all other refills of this medication Singulair 10 mg tablet RxNorm: 615124 1 Tablet(s) PO daily 10/21/192018 Inactive This refill negates all other refills of this medication buspirone 7.5 mg tablet RxNorm: 191323 1 Tablet(s) PO BID 10/21/192018 Inactive This refill negates all other refills of this medication diclofenac sodium 75 mg tablet,delayed release RxNorm: 518138 1 Tablet(s) PO BID 10/21/192018 Inactive This refill negates all other refills of this medication hydrochlorothiazide 12.5 mg tablet RxNorm: 773008 1 Tablet(s) PO QAM 10/21/192018 Inactive metoprolol succinate ER 50 mg tablet,extended release 24 hr RxNorm: 701092 1 Tablet(s) PO daily 10/21/19 19 2018 Inactive This refill negates all other refills of this medication levothyroxine 50 mcg tablet RxNorm: 962532 1 Tablet(s) PO daily 10/21/19 19 2018 Inactive This refill negates all other refills of this medication cetirizine 10 mg tablet RxNorm: 7831354 1 Tablet(s) PO daily 10/21/19 19 2018 Inactive This refill negates all other refills of this medication. Please do not auto refill Flintstones Complete (iron) 18 mg iron chewable tablet RxNorm: 1 Tablet(s) PO daily 10/21/19 19 2018 Inactive This refill negates all other refills of this medication buspirone 7.5 mg tablet RxNorm: 178382 1 Tablet(s) PO BID 10/12/19 19 2018 Inactive cetirizine 10 mg tablet RxNorm: 5696934 1 Tablet(s) PO daily 09/28/20 18 2018 Inactive Guaiasorb DM 10 mg-100 mg/5 mL oral liquid RxNorm: 839058 10 Milliliter(s) PO As needed every 4 hr 09/24/20 18 2018 Inactive Vicks Vaporub 4.7 %-1.2 %-2.6 % topical ointment RxNorm: 4640569 1 Application TOP TID 09/24/20 18 2018 Inactive levmetamfetamine 50 mg nasal inhaler RxNorm: 1 Unit(s) NASAL Q3-4H 09/24/20 18 2017 Inactive sertraline 50 mg tablet RxNorm: 744457 1 Tablet(s) PO daily 09/09/20 18 2018 Inactive Please note dose trazodone 50 mg tablet RxNorm: 577710 1 Tablet(s) PO QHS 09/06/20 18 2018 Inactive sertraline 50 mg tablet RxNorm: 666294 1 Tablet(s) PO daily 09/06/20 18 2017 Inactive amoxicillin 500 mg tablet RxNorm: 618177 1 Tablet(s) PO Q12H 08/31/20 18 2017 Inactive albuterol sulfate 2.5 mg/3 mL (0.083 %) solution for nebulization RxNorm: 603812 1 Vial INH QID 08/10/20 18 2018 Inactive 60/box. Please do not fill early. Please do not auto refill. Prozac 10 mg capsule RxNorm: 676122 1 Capsule(s) PO daily 08/09/20 18 2017 Inactive buspirone 7.5 mg tablet RxNorm: 807401 1 Tablet(s) PO BID 08/09/20 18 2018 Inactive gabapentin 300 mg capsule RxNorm: 172691 1 Capsule(s) PO TID as needed 08/01/20 18 2018 Inactive hydrochlorothiazide 12.5 mg tablet RxNorm: 457641 1 Tablet(s) PO QAM 08/01/20 18 2018 Inactive ranitidine 150 mg tablet RxNorm: 606041 1 Tablet(s) PO BID 08/01/20 18 2018 Inactive Macrobid 100 mg capsule RxNorm: 890260 1 Capsule(s) PO Q12H 06/21/20 18 2017 Inactive Singulair 10 mg tablet RxNorm: 313816 1 Tablet(s) PO daily 06/14/20 18 2018 Inactive Ventolin HFA 90 mcg/actuation aerosol inhaler RxNorm: 7553109 2 Puff(s) INH QID 06/14/20 18 2018 Inactive Singulair 10 mg tablet RxNorm: 467625 1 Tablet(s) PO daily 06/14/20 18 2017 Inactive buspirone 7.5 mg tablet RxNorm: 721599 1 Tablet(s) PO BID 06/14/20 18 2017 Inactive Prozac 10 mg capsule RxNorm: 497981 1 Capsule(s) PO daily 06/14/20 18 2017 Inactive Neilmed Pediatric Sinus Rinse Refill packet RxNorm: 1 Unit Dose NASAL PRN 05/31/20 18 2021 Inactive diclofenac sodium 75 mg tablet,delayed release RxNorm: 503704 1 Tablet(s) PO BID 05/31/20 18 2017 Inactive lisinopril 2.5 mg tablet RxNorm: 333977 1 Tablet(s) PO daily 05/31/20 18 2017 Inactive metoprolol succinate ER 50 mg tablet,extended release 24 hr RxNorm: 153560 1 Tablet(s) PO daily 05/31/20 18 2017 Inactive levothyroxine 50 mcg tablet RxNorm: 286680 1 Tablet(s) PO daily 05/31/20 18 2017 Inactive TRUEplus Lancets 30 gauge RxNorm: 1 Lancets Miscellaneous QAM 05/31/20 18 2017 Inactive 100/box Ventolin HFA 90 mcg/actuation aerosol inhaler RxNorm: 568722 2 Puff(s) INH QID 05/31/20 18 2017 Inactive Aleve 220 mg capsule RxNorm: 5777415 1 Capsule(s) PO BID 05/31/20 18 2018 Inactive ranitidine 150 mg tablet RxNorm: 782134 1 Tablet(s) PO BID 05/31/20 18 2017 Inactive gabapentin 300 mg capsule RxNorm: 455078 1 Capsule(s) PO TID as needed 05/31/20 18 2017 Inactive atorvastatin 20 mg tablet RxNorm: 938368 1 Tablet(s) PO QHS 05/31/20 18 2017 Inactive True Metrix Glucose Test Strip RxNorm: 1 Test [facility]ps [facility] 05/31/20 18 2017 Inactive 50/container Calcium 600-D3 Plus 600 mg calcium-800 unit-50 mg tablet RxNorm: 1 Tablet(s) PO daily take an additonal tablet for itching. 05/31/20 18 2017 Inactive hydrochlorothiazide 12.5 mg tablet RxNorm: 764978 1 Tablet(s) PO QAM 05/31/20 18 2017 Inactive Flintstones Complete (iron) 18 mg iron chewable tablet RxNorm: 1 Tablet(s) PO daily 05/31/20 18 2017 Inactive d-mannose oral powder RxNorm: PO 18 2021 Inactive True Metrix Glucose Meter RxNorm: miscellaneous 08/17/202018 Inactive sertraline 50 mg tablet RxNorm: 027138 1 Tablet(s) PO daily 11/28/19 20 2019 Inactive loperamide 2 mg tablet RxNorm: 403993 oral 09/29/202018 Inactive Symbicort 160 mcg-4.5 mcg/actuation HFA aerosol inhaler RxNorm: 3059586 2 Puff(s) INH BID 08/17/202018 Inactive Medication Administered No Medication Administered data Procedures Procedure Codes Date Maltreatment Assessment 1. Have you relied on [...] required, re-evaluate annually or prn CPT-4: MTAUnknown 07/08/2020 Electrocardiogram CPT-4: 53359 05/14/2020 Tobacco Assessment/Screening CPT-4: TCA Fall Risk Assessment SNOMED CT: 85337041 4 CPT-4: DFRA 01/01/2020 Functional Assessment CPT-4: DFA 01/01/2020 Garner Fany Assessment CPT-4: DSWA 11/04 Patient Health Questionnaire CPT-4: DPHQ Garner Fany Assessment CPT-4: DSWA 10/03 Hypertension CPT-4: HTN 10/17/2019 Fall Risk Assessment SNOMED CT: 42392232 4 CPT-4: DFRA 09/19/2019 Functional Assessment CPT-4: DFA 09/19/2019 Urinalysis, dip stick CPT-4: 90090 06/21/2019 Tobacco Assessment/Screening CPT-4: TCA Patient Health Questionnaire CPT-4: DPHQ AHA/REBECCA Classification Assessment CPT-4: DAHA 04/25/2019 Controlled Substance Report CPT-4: CTRSU 04/03 Urinalysis, dip stick CPT-4: 13316 03/28/2019 Urinalysis, dip stick CPT-4: 08451 03/28/2019 I6D-Wnahmnwgelpaybx CPT-4: 10279 Unknown F2A-Xsycpguhojojtuk CPT-4: 71184 Unknown F8C-Hkchnzhggvthjwo CPT-4: 39486 Unknown F8Y-Fxqoakinsfsaagz CPT-4: 00627 Unknown Gynecology Referral SNOMED CT: 999397176 CPT-4: R14 Unknown Reason For Visit Reason For Visit Effective Dates Notes hypertension 07/08/2020 diabetes mellitus 07/08/2020 mole check 07/08/2020 Interim health update 07/08/2020 Encounters Encounter Performer Location Location Address Codes Magdi e ([id number]) REMOTE E/M EST. PT 15MINS ([id number]) Diagnosis: Type 2 diabetes mellitus with peripheral neuropathy[ICD10: E11.42] Diagnosis: Essential (primary) hypertension[ICD1 0: I10] Diagnosis: Encounter for screening, unspecified[ICD10 : Z13.9] Anna Culver [facility] Office [address] [place], [place] [address] CPT-4: G9487 07/08/2020 Plan of Care Planned Activity Notes Codes Status Date Visit Plan: M25.531-719.43 Right wrist pain routine follow up with Dr Watson-orthopedics next appt 07/14/2020 quit outpatient PT as didn't feel it was helpful MRI with contrast per orthopedics completed 06/30/2020 E11.42-250.60 Type 2 diabetes mellitus with peripheral neuropathy testing BID and PRN if feeling symptomatic 123-159, patient reports feeling symptomatic for BS >100, prefers to remain mid 80's-99 in the morning and prefers to stay <119 will increase Metformin 500mg BID received new monitor [employer] through [employer]-participant of [employer] -will send all diabetic supplies to patient 04/14/2020 hemoglobin 5.6 10/17/2019 Hemoglobin A1C 6.0 07/04/2019 Hgb A1C 5.6 10/17/2019 Inocente Soares 04/11-instructed on good daily foot care routine follow up with Dr. Gonzales, podiatry-diabetic shoe received ophthalmology confirms visit, but doesn't remember when 01/01/2020 FRA complete denies fall 01/01/2020 Functional Assessment complete I10-401.9 Essential (primary) hypertension I11.0-402.91 Hypertensive heart disease with heart failure cont hctz and lisinipril 10/17/2019 HTN assessment, encourage lifestyle modifications, exercise, weight loss, and limiting fried and greasy foods, 04/14/2020 GFR 110, Mg 2.3, Phosphorus 2.9 all numbers WNL 10/17/2019 GFR 90 05/14/2020 EKG NSR 05/14/2020 OVN SpO2 <88% greater than 7 minutes Echocardiogram DOS 07/02/2020 Norrmal LVSF, EF 60% N18.9-585.9 Chronic kidney disease, unspecified avoid nephro toxic drugs, 04/17/2020 GFR >100, renal function remains stable Patient denies ability to drink water stating that it dehydrates her-doesn't know diagnosis, but indicates she was told this by previous urologist routine urology follow up-next appt in August 2020 G47.33-327.23 Obstructive sleep apnea (adult) (pediatric) J45.909-493.90 Asthma continue inhalers nebulizer routine f/u Dr. Garcia, pulmonology appt August 2020 F43.23-309.28 Adjustment disorder with mixed anxiety and depressed mood routine follow up [facility] [place] E03.9-244.9 Hypothyroidism, unspecified cont levothyroxine E78.5-272.4 Hyperlipidemia, unspecified continue atorvastatin avoid high fat, fried foods discussed benefits of increased activity Z23-V04.81 Encounter for immunization 06/12/2020 influenza vaccine offered and accepted N39.46-788.33 Mixed incontinence use of incontinence supplies R55-780.2 Syncope and collapse denies any recent episodes advise to check BS when feeling light headed Z13.9-V82.9 Encounter for screening, unspecified 07/08/2020 Maltreatment assessment complete-patient denies any form of abuse or neglect Z68.43-V85.43 Adult BMI 50.0-59.9 kg/sq m continues to loose weight trying to avoid soda, drinking sparkling flavored pal and occasional Heike Green Tea and honey Z12.4-V76.2 Encounter for screening for malignant neoplasm of cervix last pap January 2019 new appt for pap in June 2020-[employer]-reports pap negative-records requested Z01.89-V72.85 Encounter for screening [...] visit verbalized understanding of all above topics. 07/08/2020 Patient Education: Patient Medication Summary Completed 07/08/2020 Patient Education: Diabetes Complete d 07/08/2020 Patient Education: Hypertension Completed 07/08/2020 Appointment: Gianna Birmingham: [address] [facility] 100 [id number] [place] ECHO 07/02/2020 Appointment: Anna Culver WPtel: [phone] [place] [address] [place] E452 06/11/2020 Appointment: Anna Culver WPtel: [phone] [place] [address] [place] E452 05/14/2020 Appointment: Anna Culver WPtel: [phone] [place] [address] [place] E452 04/17/2020 Appointment: Anna Culver WPtel: [address] [place] [address] E452 03/21/2020 Appointment: Anna Culver WPtel: [phone] E452 02/14/2020 Appointment: Anna Culver WPtel: [phone] E452 01/24/2020 Appointment: Anna Culver WPtel: [phone] E452 01/01/2020 Appointment: Anna Culver WPtel: [phone] E452 11/28/2019 Appointment: Anna Culver WPtel: [phone] [place] [address] E452 10/17/2019 Appointment: Anna Culver WPtel: [address] [place] [address] E452 09/19/2019 Appointment: Sudha Hernadez WPtel: [address] [facility] [address] [id number] E452 07/04/2019 Appointment: Sudha Hernadez WPtel: [address] [facility] [address] [id number] E452 06/21/2019 Appointment: Charlene Oropeza WPtel: [address] [facility] b [id number] 05/24/2019 Appointment: Mallory Delgado E452 04/27/2019 Appointment: Charlene Oropeza WPtel: [address] [facility] [address] [id number] 04/25/2019 Appointment: Rasta Palafox WPtel: [address] [facility] [address] [id number] 03/28/2019 Appointment: Rasta Palafox WPtel: [address] [facility] [address] [id number] E452 02/14/2019 Appointment: Rasta Palafox WPtel: [address] [facility] [address] [id number] 01/31/2019 Appointment: Rasta Palafox WPtel: [address] [facility] [address] [id number] 12/27/2018 Referral: Pending Gynecology Referral Information Referral Processed Referral: Pending Pulmonolog y Referral Information Referral Processed Referral: Pending Psychiatry Referral Information Referral Initiated Referral: Pending Respirator y Services Referral Information Referral Initiated Referral: Pending Ophthalmology Referral Information Referral Initiated Referral: [facility] WPtel: [address] [place] [address] Store Consultant placed a call out to the patient to notify her that it has been recommended that she be seen by a urologist. Patient agreed to be seen, does not have a provider of choice and no transportation issues. Store Consultant faxed referral and clinical notes to [facility] in [place], [place] near the patient's home. Patient to [...] seen and prefers a provider in the [place] or [place] area. Store Consultant placed a call out to everyone listed in the area and the only location that was able to accept the patient's insurance was [place] [address] [place] [address] and spoke with Maylin. Maylin asked that the patient's referral, face sheet and visit notes be faxed to . Store Consultant faxed over requested documents. Patient appointment confirmation letter generated and mailed to her home address. Patient to call to schedule an appointment. Processed Referral: [facility] WPtel: [address] [facility] [address] [id number] Patient notified that it has been advised that she be seen by Neurology. Patient agreed to be seen and prefers to be seen by a provider in the [place], [place] area. Patient denies any concerns with transportation, and prefers to schedule her own appointment. Store Consultant placed a call out to [facility] and spoke with [...] Assessment and plan reviewed with patient . [id number] Right wrist pain routine follow up with Dr Watson-orthopedics next appt 07/14/2020 quit outpatient PT as didn't feel it was helpful MRI with contrast per orthopedics completed 06/30/2020 E11.42-250.60 Type 2 diabetes mellitus with peripheral neuropathy testing BID and PRN if feeling symptomatic 123-159, patient reports feeling symptomatic for BS >100, prefers to remain mid 80's-99 in the morning and prefers to stay <119 will increase Metformin 500mg BID received new monitor [employer] through [employer]-participant of [employer] demand -will send all diabetic supplies to patient 04/14/2020 hemoglobin 5.6; 10/17/2019 Hemoglobin A1C 6.0; 07/04/2019 Hgb A1C 5.6 10/17/2019 Inocente Soares 04/11-instructed on good daily foot care routine follow up with Dr. Gonzales, podiatry-diabetic shoe received ophthalmology confirms visit, but doesn't remember when 01/01/2020 FRA complete denies fall 01/01/2020 Functional Assessment complete I10-401.9 Essential (primary) hypertension I11.0-402.91 Hypertensive heart disease with heart failure cont hctz and lisinipril 10/17/2019 HTN assessment, encourage lifestyle modifications, exercise, weight loss, and limiting fried and greasy foods, 04/14/2020 GFR 110, Mg 2.3, Phosphorus 2.9 all numbers WNL; 10/17/2019 GFR 90 05/14/2020 EKG NSR 05/14/2020 OVN SpO2 <88% greater than 7 minutes Echocardiogram DOS 07/02/2020 Norrmal LVSF, EF 60% N18.9-585.9 Chronic kidney disease, unspecified avoid nephro toxic drugs, 04/17/2020 GFR >100, renal function remains stable; Patient denies ability to drink water stating that it dehydrates her-doesn't know diagnosis, but indicates she was told this by previous urologist routine urology follow up-next appt in August 2020 G47.33-327.23 Obstructive sleep apnea (adult) (pediatric); J45.909-493.90 Asthma continue inhalers nebulizer routine f/u Dr. Garcia, pulmonology appt August 2020 F43.23-309.28 Adjustment disorder with mixed anxiety and depressed mood routine follow up [facility] [place] E03.9-244.9 Hypothyroidism, unspecified cont levothyroxine E78.5-272.4 Hyperlipidemia, unspecified continue atorvastatin avoid high fat, fried foods discussed benefits of increased activity Z23-V04.81 Encounter for immunization 06/12/2020 influenza vaccine offered and accepted N39.46-788.33 Mixed incontinence use of incontinence supplies R55-780.2 Syncope and collapse denies any recent episodes advise to check BS when feeling light headed Z13.9-V82.9 Encounter for screening, unspecified 07/08/2020 Maltreatment assessment complete-patient denies any form of abuse or neglect Z68.43-V85.43 Adult BMI 50.0-59.9 kg/sq m continues to loose weight trying to avoid soda, drinking sparkling flavored pal and occasional Heike Green Tea and honey Z12.4-V76.2 Encounter for screening for malignant neoplasm of cervix last pap January 2019 new appt for pap in June 2020-[facility]-reports pap negative-records requested Z01.89-V72.85 Encounter for screening [...] visit verbalized understanding of all above topics. 07/08/2020 Medical Equipment No Medical Equipment data Advance Directives No Advance Directive data
--- OUTSIDE RECORDS SUMMARY | 2023-12-07 02:12 | XMS_ITS | CCD ---
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 Home Care Aide Name Role Phone Palomo KING, Anna Primary Care Provider Unav ailable Unavailable Chronic Care Management Unavaila ble Summary Purpose DataExchange Insurance Providers Payer name Policy type / Coverage type Covered constitution party ID Effective Begin Date Effective End Date [facility] [id number] Unknown Unknown Family history Mother Diagnosis Age [...] Unknown Disability 05/31/[address]: 591426686 Has never s moked or chewed tobacco 05/31/[address]: 508480879 Never drinks alco hol 05/31/2018 Has the [...] failure ICD-10: I11.0 ICD-9: 402.91 04/25/2019 Active Right wrist pain ICD-10: M25.531 ICD-9: 719.43 05/14/2020 Active Type 2 diabetes mellitus wit h peripheral neuropathy ICD-10: E11.42 ICD-9: 250.60 11/28/2019 Active (Z12.11-V76.51) Encounter fo r screening for malignant neoplasm of colon ICD-10: Z12.11 ICD-9: V76.51 04/17/2020 Active (Z12.31-V76.12) Encounter fo r screening mammogram for malignant neoplasm of breast ICD-10: Z12.31 ICD-9: V76.12 04/17/2020 Active Chronic kidney disease, unspecified ICD- 10: N18.9 ICD-9: 585.9 06/21/2019 Active Adult BMI 50.0-59.9 kg/sq m [...] use ICD-10: Z01.89 ICD-9: V72.85 01/01/2020 Active [place] [facility] ICD-10: H10.029 ICD-9: 372.03 12/29/2019 Active [...] ICD-10: UXZ.01 ICD-9: XZ0.1 04/27/2019 Active 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 ICD-10: Z79.899 ICD-9: [...] Headache ICD-10: R51 ICD-9: 784.0 10/03/2018 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 anti-inflammatories (NSAID) ICD-10: Z79.1 ICD-9: V58.64 06/13/2018 Active Medications Medication Codes Instructions Start Date Stop Date Status Fill Instructions omeprazole 20 mg capsule,delayed release RxNorm: 418415 TAKE 1 CAPSULE BY MOUTH EVERY DAY 05/14/20 20 2020 Inactive metformin 500 mg tablet RxNorm: 849301 1 Tablet(s) Oral every day 05/12/20 20 2019 Inactive True Metrix Glucose Test Strip RxNorm: 1 Test Strips Miscellaneous two times a day as needed 04/17/20 No Stop Date Active metformin 500 mg tablet RxNorm: 110984 1 Tablet(s) Oral every day 04/17/20 20 2019 Inactive diclofenac sodium 75 mg tablet,delayed release RxNorm: 531497 1 Tablet(s) PO BID 04/14/20 20 2021 Inactive This refill negates all other refills of this medication Sudafed 12 Hour 120 mg tablet,extended release RxNorm: 9194906 TAKE 1 TABLET BY MOUTH EVERY 12 HOURS NEEDED 03/14/20 20 2019 Inactive True Metrix Glucose Test Strip RxNorm: 1 Test Strips Miscellaneous every morning 03/13/20 20 2019 Inactive 100/container loperamide 2 mg tablet RxNorm: 899169 1 Tablet(s) Oral as needed take one tablet after each loose stool, maximum of 8 tablets in 24 hours 02/22/20 20 2019 Inactive True Metrix Glucose Test Strip RxNorm: 1 Test Strips Miscellaneous QAM 02/22/20 20 2019 Inactive 100/container cetirizine 10 mg tablet RxNorm: 8258784 1 Tablet(s) PO daily 01/17/20 20 2019 Inactive levothyroxine 50 mcg tablet RxNorm: 975611 1 Tablet(s) PO daily 01/17/20 20 2020 Inactive gabapentin 300 mg capsule RxNorm: 211984 1 Capsule(s) PO TID 01/17/20 20 2019 Inactive loperamide 2 mg tablet RxNorm: 743648 1 Tablet(s) Oral as needed take one tablet after each loose stool, maximum of 8 tablets in 24 hours 01/17/20 20 2019 Inactive quetiapine 100 mg tablet RxNorm: 490863 1 Tablet(s) Oral every night at bedtime 01/17/20 20 2019 Inactive lisinopril 2.5 mg tablet RxNorm: 315847 1 Tablet(s) PO daily 01/15/20 20 2020 Inactive Singulair 10 mg tablet RxNorm: 308124 1 Tablet(s) PO daily 01/15/20 20 2020 Inactive levothyroxine 50 mcg tablet RxNorm: 590190 1 Tablet(s) PO daily 01/15/20 20 2019 Inactive gabapentin 300 mg capsule RxNorm: 185883 1 Capsule(s) PO TID 01/15/20 20 2019 Inactive cetirizine 10 mg tablet RxNorm: 7043120 1 Tablet(s) PO daily 01/15/20 20 2019 Inactive gentamicin 0.3 % eye drops RxNorm: 046607 1 Drop(s) ophthalmic (eye) four times a day 12/29/19 20 2019 Inactive gentamicin 0.3 % eye drops RxNorm: 291985 1 Drop(s) ophthalmic (eye) four times a day 12/29/19 20 2019 Inactive gentamicin 0.3 % eye drops RxNorm: 609767 1 Drop(s) ophthalmic (eye) four times a day 12/29/19 20 2019 Inactive hydrochlorothiazide 25 mg tablet RxNorm: 872419 1 Tablet(s) Oral every day 12/21/19 20 2019 Inactive Sudafed 12 Hour 120 mg tablet,extended release RxNorm: 9124146 TAKE (1) TABLET BY MOUTH EVERY 12 HOURS NEEDED 12/21/19 20 2019 Inactive loperamide 2 mg tablet RxNorm: 923071 1 Tablet(s) Oral as needed take one tablet after each loose stool, maximum of 8 tablets in 24 hours 12/11/19 20 2019 Inactive loperamide 2 mg tablet RxNorm: 785097 1 Tablet(s) Oral as needed take one tablet after each loose stool, maximum of 8 tablets in 24 hours 12/11/19 20 2019 Inactive atorvastatin 40 mg tablet RxNorm: 279961 1 Tablet(s) Oral every day 11/29/19 20 2020 Inactive sertraline 100 mg tablet RxNorm: 661470 1 Tablet(s) Oral 11/28/19 20 2019 Inactive quetiapine 100 mg tablet RxNorm: 294859 1 Tablet(s) Oral every night at bedtime 11/28/19 20 2019 Inactive omeprazole 20 mg capsule,delayed release RxNorm: 919049 1 Capsule(s) Oral every day 11/20/19 20 2019 Inactive amoxicillin 250 mg capsule RxNorm: 073473 1 Capsule(s) Oral three times a day 11/07/19 20 2019 Inactive multivitamin with iron-mineral tablet RxNorm: 1 Tablet(s) Oral every day 10/29/19 20 2021 Inactive cetirizine 10 mg tablet RxNorm: 3477747 1 Tablet(s) PO daily 10/20/19 20 2019 Inactive This refill negates all other refills of this medication. Please do not auto refill Singulair 10 mg tablet RxNorm: 459052 1 Tablet(s) PO daily 10/20/19 20 2019 Inactive This refill negates all other refills of this medication gabapentin 300 mg capsule RxNorm: 108873 1 Capsule(s) PO TID 10/20/19 20 2019 Inactive lisinopril 2.5 mg tablet RxNorm: 456188 1 Tablet(s) PO daily 10/20/19 20 2019 Inactive levothyroxine 50 mcg tablet RxNorm: 293193 1 Tablet(s) PO daily 10/20/19 20 2019 Inactive This refill negates all other refills of this medication fenugreek seed extract 500 mg capsule RxNorm: 1 Capsule(s) Oral three times a day 10/17/19 20 2021 Inactive hydrochlorothiazide 25 mg tablet RxNorm: 970537 1 Tablet(s) Oral every day 10/17/19 20 2019 Inactive Alcohol Prep Pads RxNorm: 374771 1 Patch TOP QAM 10/16/19 20 2020 Inactive loperamide 2 mg tablet RxNorm: 292094 1 Tablet(s) Oral as needed take one [...] 2019 Inactive hydrochlorothiazide 25 mg tablet RxNorm: 255536 1 Tablet(s) Oral every day 09/19/20 19 2019 Inactive Sudafed 12 Hour 120 mg tablet,extended release RxNorm: 8394086 1 Tablet(s) Oral every 12 hours as needed 09/11/20 19 2018 Inactive omeprazole 20 mg capsule,delayed release RxNorm: 787414 1 Capsule(s) Oral every day 09/07/20 19 2019 Inactive Sudafed 12 Hour 120 mg tablet,extended release RxNorm: 9283295 1 Tablet(s) Oral every 12 hours as needed 09/04/20 19 2018 Inactive pantoprazole 40 mg tablet,delayed release RxNorm: 352814 1 Tablet(s) Oral every day 08/24/20 19 2018 Inactive discontinue any other H2Blkr. and PPI albuterol sulfate 2.5 mg/3 mL (0.083 %) solution for nebulization RxNorm: 106309 1 Vial Inhalation every four hours as needed as needed for dyspnea 08/17/20 19 2019 Inactive 60/box. This refill negates all other refills of this medication. Please do not fill early. Please do not auto refill. Symbicort 160 mcg-4.5 mcg/actuation HFA aerosol inhaler RxNorm: 5255988 2 Puff(s) INH BID 08/17/20 19 No Stop Date Active Alcohol Prep Pads RxNorm: 160915 1 Patch TOP QAM 08/17/20 19 2019 Inactive Ventolin HFA 90 mcg/actuation aerosol inhaler RxNorm: 768934 2 Puff(s) INH QID 08/09/20 19 2019 Inactive Please do not fill early. Please do not auto refill. This refill negates all other refills of this medication True Metrix Glucose Test Strip RxNorm: 1 Test Strips Miscellaneous QAM 08/09/20 19 2019 Inactive 100/container atorvastatin 40 mg tablet RxNorm: 641189 1 Tablet(s) Oral every day 07/04/20 19 2019 Inactive levmetamfetamine 50 mg nasal inhaler RxNorm: 1 Unit(s) NASAL Q3-4H Do not use more than every 3 hours or 8 times/24hours 06/26/20 19 2021 Inactive Please do not auto refill. This refill negates all other refills of this medication buspirone 7.5 mg tablet RxNorm: 191088 1 Tablet(s) PO BID 06/26/20 19 2020 Inactive This refill negates all other refills of this medication hydrochlorothiazide 12.5 mg tablet RxNorm: 930506 1 Tablet(s) PO QAM 06/26/20 19 2019 Inactive Ventolin HFA 90 mcg/actuation aerosol inhaler RxNorm: 928444 2 Puff(s) INH QID 06/26/20 19 2018 Inactive Please do not fill early. Please do not auto refill. This refill negates all other refills of this medication Singulair 10 mg tablet RxNorm: 439978 1 Tablet(s) PO daily 06/26/20 19 2019 Inactive This refill negates all other refills of this medication cetirizine 10 mg tablet RxNorm: 7778139 1 Tablet(s) PO daily 06/26/20 19 2019 Inactive This refill negates all other refills of this medication. Please do not auto refill levothyroxine 50 mcg tablet RxNorm: 872304 1 Tablet(s) PO daily 06/26/20 19 2019 Inactive This refill negates all other refills of this medication diclofenac sodium 75 mg tablet,delayed release RxNorm: 172492 1 Tablet(s) PO BID 06/26/20 19 2019 Inactive This refill negates all other refills of this medication ranitidine 150 mg tablet RxNorm: 822040 1 Tablet(s) PO BID 06/26/20 19 2018 Inactive This refill negates all other refills of this medication Calcium 600-D3 Plus (mag-zinc) 600 mg calcium-800 unit-50 mg tablet RxNorm: 1 Tablet(s) PO daily take an additonal tablet for itching. 06/26/20 19 2018 Inactive This refill negates all other refills of this medication albuterol sulfate 2.5 mg/3 mL (0.083 %) solution for nebulization RxNorm: 877770 1 Vial INH QID 06/26/20 19 2018 Inactive 60/box. This refill negates all other refills of this medication. Please do not fill early. Please do not auto refill. lisinopril 2.5 mg tablet RxNorm: 865530 1 Tablet(s) PO daily 06/21/20 19 2019 Inactive gabapentin 300 mg capsule RxNorm: 039665 1 Capsule(s) PO TID 06/21/20 19 2019 Inactive atorvastatin 20 mg tablet RxNorm: 834131 1 Tablet(s) PO QHS 06/07/20 19 2018 Inactive This refill negates all other refills of this medication TRUEplus Lancets 30 gauge RxNorm: 1 Lancets Miscellaneous QAM 05/29/20 19 2018 Inactive 100/box gabapentin 300 mg capsule RxNorm: 210488 1 Capsule(s) PO TID 05/03/20 19 2018 Inactive Flintstones Complete (iron) 18 mg iron chewable tablet RxNorm: 1 Tablet(s) PO daily 04/04/20 19 2021 Inactive This refill negates all other refills of this medication gabapentin 300 mg capsule RxNorm: 896786 1 Capsule(s) PO TID as needed 02/01/20 19 2018 Inactive True Metrix Glucose Test Strip RxNorm: 1 Test Strips Miscellaneous QA 02/01/20 19 2018 Inactive 100/container Alcohol Prep Pads RxNorm: 940769 1 Patch TOP QA 02/01/202018 Inactive TRUEplus Lancets 30 gauge RxNorm: 1 Lancets Miscellaneous QAM 02/01/20 19 2018 Inactive 100/box lisinopril 2.5 mg tablet RxNorm: 078195 1 Tablet(s) PO daily 12/28/19 19 2018 Inactive ranitidine 150 mg tablet RxNorm: 632505 1 Tablet(s) PO BID 10/21/192018 Inactive This refill negates all other refills of this medication albuterol sulfate 2.5 mg/3 mL (0.083 %) solution for nebulization RxNorm: 472525 1 Vial INH QID 10/21/192018 Inactive 60/box. [...] this medication gabapentin 300 mg capsule RxNorm: 824709 1 Capsule(s) PO TID as needed 10/21/192018 Inactive atorvastatin 20 mg tablet RxNorm: 214564 1 Tablet(s) PO QHS 10/21/192018 Inactive This refill negates all other refills of this medication trazodone 50 mg tablet RxNorm: 024802 1 Tablet(s) PO QHS 10/21/19 19 2018 Inactive This refill negates all other refills of this medication Ventolin HFA 90 mcg/actuation aerosol inhaler RxNorm: 381852 2 Puff(s) INH QID 10/21/19 19 2018 [...] this medication Singulair 10 mg tablet RxNorm: 597147 1 Tablet(s) PO daily 10/21/192018 Inactive This refill negates all other refills of this medication buspirone 7.5 mg tablet RxNorm: 668040 1 Tablet(s) PO BID 10/21/192018 Inactive This refill negates all other refills of this medication diclofenac sodium 75 mg tablet,delayed release RxNorm: 215877 1 Tablet(s) PO BID 10/21/19 19 2018 Inactive This refill negates all other refills of this medication hydrochlorothiazide 12.5 mg tablet RxNorm: 663824 1 Tablet(s) PO QAM 10/21/19 19 2018 Inactive metoprolol succinate ER 50 mg tablet,extended release 24 hr RxNorm: 834141 1 Tablet(s) PO daily 10/21/192018 Inactive This refill negates all other refills of this medication levothyroxine 50 mcg tablet RxNorm: 287300 1 Tablet(s) PO daily 10/21/192018 Inactive This refill negates all other refills of this medication cetirizine 10 mg tablet RxNorm: 7905174 1 Tablet(s) PO daily 10/21/192018 Inactive This refill negates all other refills of this medication. Please do not auto refill Flintstones Complete (iron) 18 mg iron chewable tablet RxNorm: 1 Tablet(s) PO daily 10/21/192018 Inactive This refill negates all other refills of this medication buspirone 7.5 mg tablet RxNorm: 446311 1 Tablet(s) PO BID 10/12/19 19 2018 Inactive cetirizine 10 mg tablet RxNorm: 1010043 1 Tablet(s) PO daily 09/28/20 18 2018 Inactive Guaiasorb DM 10 mg-100 mg/5 mL oral liquid RxNorm: 644585 10 Milliliter(s) PO As needed every 4 hr 09/24/20 18 2018 Inactive Tatiana Vaporub 4.7 %-1.2 %-2.6 % topical ointment RxNorm: 1502387 1 Application TOP TID 09/24/20 18 2018 Inactive levmetamfetamine 50 mg nasal inhaler RxNorm: 1 Unit(s) NASAL Q3-4H 09/24/20 18 2017 Inactive sertraline 50 mg tablet RxNorm: 565595 1 Tablet(s) PO daily 09/09/20 18 2018 Inactive Please note dose trazodone 50 mg tablet RxNorm: 419838 1 Tablet(s) PO QHS 09/06/20 18 2018 Inactive sertraline 50 mg tablet RxNorm: 118351 1 Tablet(s) PO daily 09/06/20 18 2017 Inactive amoxicillin 500 mg tablet RxNorm: 782515 1 Tablet(s) PO Q12H 08/31/20 18 2017 Inactive albuterol sulfate 2.5 mg/3 mL (0.083 %) solution for nebulization RxNorm: 565419 1 Vial INH QID 08/10/20 18 2018 Inactive 60/box. Please do not fill early. Please do not auto refill. Prozac 10 mg capsule RxNorm: 169777 1 Capsule(s) PO daily 08/09/20 18 2017 Inactive buspirone 7.5 mg tablet RxNorm: 915533 1 Tablet(s) PO BID 08/09/20 18 2018 Inactive gabapentin 300 mg capsule RxNorm: 482198 1 Capsule(s) PO TID as needed 08/01/20 18 2018 Inactive hydrochlorothiazide 12.5 mg tablet RxNorm: 604008 1 Tablet(s) PO QAM 08/01/20 18 2018 Inactive ranitidine 150 mg tablet RxNorm: 677181 1 Tablet(s) PO BID 08/01/20 18 2018 Inactive Macrobid 100 mg capsule RxNorm: 238194 1 Capsule(s) PO Q12H 06/21/20 18 2017 Inactive Singulair 10 mg tablet RxNorm: 641680 1 Tablet(s) PO daily 06/14/20 18 2018 Inactive Ventolin HFA 90 mcg/actuation aerosol inhaler RxNorm: 5525705 2 Puff(s) INH QID 06/14/20 18 2018 Inactive Singulair 10 mg tablet RxNorm: 007232 1 Tablet(s) PO daily 06/14/20 18 2017 Inactive buspirone 7.5 mg tablet RxNorm: 901277 1 Tablet(s) PO BID 06/14/20 18 2017 Inactive Prozac 10 mg capsule RxNorm: 490937 1 Capsule(s) PO daily 06/14/20 18 2017 Inactive Neilmed Pediatric Sinus Rinse Refill packet RxNorm: 1 Unit Dose NASAL PRN 05/31/20 18 2021 Inactive diclofenac sodium 75 mg tablet,delayed release RxNorm: 525600 1 Tablet(s) PO BID 05/31/20 18 2017 Inactive lisinopril 2.5 mg tablet RxNorm: 967852 1 Tablet(s) PO daily 05/31/20 18 2017 Inactive metoprolol succinate ER 50 mg tablet,extended release 24 hr RxNorm: 521129 1 Tablet(s) PO daily 05/31/20 18 2017 Inactive levothyroxine 50 mcg tablet RxNorm: 698874 1 Tablet(s) PO daily 05/31/20 18 2017 Inactive TRUEplus Lancets 30 gauge RxNorm: 1 Lancets Miscellaneous QAM 05/31/20 18 2017 Inactive 100/box Ventolin HFA 90 mcg/actuation aerosol inhaler RxNorm: 146203 2 Puff(s) INH QID 05/31/20 18 2017 Inactive Aleve 220 mg capsule RxNorm: 2078726 1 Capsule(s) PO BID 05/31/20 18 2018 Inactive ranitidine 150 mg tablet RxNorm: 387818 1 Tablet(s) PO BID 05/31/20 18 2017 Inactive gabapentin 300 mg capsule RxNorm: 075208 1 Capsule(s) PO TID as needed 05/31/20 18 2017 Inactive atorvastatin 20 mg tablet RxNorm: 765724 1 Tablet(s) PO QHS 05/31/20 18 2017 Inactive True Metrix Glucose Test Strip RxNorm: 1 Test Strips Miscellaneous [facility] 05/31/20 18 2017 Inactive 50/container Calcium 600-D3 Plus 600 mg calcium-800 unit-50 mg tablet RxNorm: 1 Tablet(s) PO daily take an additonal tablet for itching. 05/31/20 18 2017 Inactive hydrochlorothiazide 12.5 mg tablet RxNorm: 659429 1 Tablet(s) PO QAM 05/31/20 18 2017 Inactive Flintstones Complete (iron) 18 mg iron chewable tablet RxNorm: 1 Tablet(s) PO daily 05/31/20 18 2017 Inactive d-mannose oral powder RxNorm: PO 18 2021 Inactive True Metrix Glucose Meter RxNorm: miscellaneous 08/17/20 19 2018 Inactive sertraline 50 mg tablet RxNorm: 092332 1 Tablet(s) PO daily 11/28/19 20 2019 Inactive loperamide 2 mg tablet RxNorm: 793970 oral 09/29/20 19 2018 Inactive Symbicort 160 mcg-4.5 mcg/actuation HFA aerosol inhaler RxNorm: 3593993 2 Puff(s) INH BID 08/17/20 19 2018 Inactive Medication Administered No Medication Administered data Procedures Procedure Codes Date Electrocardiogram CPT-4: 61242 05/14/2020 Tobacco Assessment/Screening CPT-4: TCA Fall Risk Assessment SNOMED CT: 80235540 4 CPT-4: DFRA 01/01/2020 Functional Assessment CPT-4: DFA 01/01/2020 [place] Fany Assessment CPT-4: DSWA 11/04 Patient Health Questionnaire CPT-4: DPHQ [place] Fany Assessment CPT-4: DSWA 10/03 Hypertension CPT-4: HTN 10/17/2019 Fall Risk Assessment SNOMED CT: 51418827 4 CPT-4: DFRA 09/19/2019 Functional Assessment CPT-4: DFA 09/19/2019 Urinalysis, dip stick CPT-4: 57920 06/21/2019 Tobacco Assessment/Screening CPT-4: TCA Patient Health Questionnaire CPT-4: DPHQ AHA/REBECCA Classification Assessment CPT-4: DAHA 04/25/2019 Controlled Substance Report CPT-4: CTRSU 04/03 Urinalysis, dip stick CPT-4: 91343 03/28/2019 Urinalysis, dip stick CPT-4: 56122 03/28/2019 [id number] CPT-4: 50254 Unknown [id number] CPT-4: 17965 Unknown [id number] CPT-4: 57433 Unknown Gynecology Referral SNOMED CT: 536845709 CPT-4: R14 Unknown Reason For Visit No [...] Initiated Referral: [facility] WPtel: [address] [place] [address] Privacy Analyst placed a call out to the patient to notify her that it has been recommended that she be seen by a urologist. Patient agreed to be seen, does not have a provider of choice and no transportation issues. Privacy Analyst faxed referral and clinical notes to [facility] in [place], [place] near the patient's home. Patient to [...] seen and prefers a provider in the [place] or [place] area. Privacy Analyst placed a call out to everyone listed in the area and the only location that was able to accept the patient's insurance was [facility] [address] [place] [address] and spoke with Maylin. Maylin asked that the patient's referral, face sheet and visit notes be faxed to . Privacy Analyst faxed over requested documents. Patient appointment confirmation letter generated and mailed to her home address. Patient to call to schedule an appointment. Processed Referral: [facility] WPtel: [address] [facility] [address] [place], [place] [id number] Patient notified that it has been advised that she be seen by Neurology. Patient agreed to be seen and prefers to be seen by a provider in the [place], [place] area. Patient denies any concerns with transportation, and prefers to schedule her own appointment. Privacy Analyst placed a call out to [facility] and spoke with Neeraj Mcfarland: [...]
--- OUTSIDE RECORDS SUMMARY | 2023-12-07 02:12 | XMS_ITS | CCD ---
Author Name Leena Culver NP Address [id number] [place] [address] [address] [place] [address] Phone Organization [facility] Phone Care Team Providers Care Molding Engineer Name Role Phone Anna Culver NP Primary Care Provider Unav ailable Unavailable Chronic Care Management Unavaila ble Summary Purpose DataExchange Insurance Providers Payer name Policy type / Coverage type Covered libertarian ID Effective Begin Date Effective End Date SUKI MAYO [id number] Unknown Unknown Family history Mother Diagnosis Age [...] Unknown Disability 05/31/[address]: 056671076 Has never s moked or chewed tobacco 05/31/[address]: 177763976 Never drinks alco hol 05/31/2018 Has the [...] use ICD-10: Z01.89 ICD-9: V72.85 01/01/2020 Active [place] eye ICD-10: H10.029 ICD-9: 372.03 12/29/2019 Active [...] UXZ.01 ICD-9: XZ0.1 04/27/2019 Active Other intermediate frame tender (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 ICD-10: Z79.899 ICD-9: [...] Headache ICD-10: R51 ICD-9: 784.0 10/03/2018 Active jail (current) use of non-steroidal anti-inflammatories (NSAID) ICD-10: Z79.1 ICD-9: V58.64 06/13/2018 Active Medications Medication Codes Instructions Start Date Stop Date Status Fill Instructions omeprazole 20 mg capsule,delayed release RxNorm: 335849 TAKE 1 CAPSULE BY MOUTH EVERY DAY 05/14/20 20 2020 Inactive metformin 500 mg tablet RxNorm: 183870 1 Tablet(s) Oral every day 05/12/20 20 2019 Inactive True Metrix Glucose Test Strip RxNorm: 1 Test Strips Miscellaneous two times a day as needed 04/17/20 No Stop Date Active metformin 500 mg tablet RxNorm: 646350 1 Tablet(s) Oral every day 04/17/20 20 2019 Inactive diclofenac sodium 75 mg tablet,delayed release RxNorm: 069671 1 Tablet(s) PO BID 04/14/20 20 2021 Inactive This refill negates all other refills of this medication Sudafed 12 Hour 120 mg tablet,extended release RxNorm: 9199586 TAKE 1 TABLET BY MOUTH EVERY 12 HOURS NEEDED 03/14/20 20 2019 Inactive True Metrix Glucose Test Strip RxNorm: 1 Test Strips Miscellaneous every morning 03/13/20 20 2019 Inactive 100/container loperamide 2 mg tablet RxNorm: 505745 1 Tablet(s) Oral as needed take one tablet after each loose stool, maximum of 8 tablets in 24 hours 02/22/20 20 2019 Inactive True Metrix Glucose Test Strip RxNorm: 1 Test Strips Miscellaneous QAM 02/22/20 20 2019 Inactive 100/container cetirizine 10 mg tablet RxNorm: 0809115 1 Tablet(s) PO daily 01/17/20 20 2019 Inactive levothyroxine 50 mcg tablet RxNorm: 972851 1 Tablet(s) PO daily 01/17/20 20 2020 Inactive gabapentin 300 mg capsule RxNorm: 654300 1 Capsule(s) PO TID 01/17/20 20 2019 Inactive loperamide 2 mg tablet RxNorm: 722004 1 Tablet(s) Oral as needed take one tablet after each loose stool, maximum of 8 tablets in 24 hours 01/17/20 20 2019 Inactive quetiapine 100 mg tablet RxNorm: 013948 1 Tablet(s) Oral every night at bedtime 01/17/20 20 2019 Inactive lisinopril 2.5 mg tablet RxNorm: 118202 1 Tablet(s) PO daily 01/15/20 20 2020 Inactive Singulair 10 mg tablet RxNorm: 555132 1 Tablet(s) PO daily 01/15/20 20 2020 Inactive levothyroxine 50 mcg tablet RxNorm: 273085 1 Tablet(s) PO daily 01/15/20 20 2019 Inactive gabapentin 300 mg capsule RxNorm: 239746 1 Capsule(s) PO TID 01/15/20 20 2019 Inactive cetirizine 10 mg tablet RxNorm: 6384140 1 Tablet(s) PO daily 01/15/20 20 2019 Inactive gentamicin 0.3 % eye drops RxNorm: 118005 1 Drop(s) ophthalmic (eye) four times a day 12/29/19 20 2019 Inactive gentamicin 0.3 % eye drops RxNorm: 213701 1 Drop(s) ophthalmic (eye) four times a day 12/29/19 20 2019 Inactive gentamicin 0.3 % eye drops RxNorm: 261264 1 Drop(s) ophthalmic (eye) four times a day 12/29/19 20 2019 Inactive hydrochlorothiazide 25 mg tablet RxNorm: 792329 1 Tablet(s) Oral every day 12/21/19 20 2019 Inactive Sudafed 12 Hour 120 mg tablet,extended release RxNorm: 7991732 TAKE (1) TABLET BY MOUTH EVERY 12 HOURS NEEDED 12/21/19 20 2019 Inactive loperamide 2 mg tablet RxNorm: 046503 1 Tablet(s) Oral as needed take one tablet after each loose stool, maximum of 8 tablets in 24 hours 12/11/19 20 2019 Inactive loperamide 2 mg tablet RxNorm: 501908 1 Tablet(s) Oral as needed take one tablet after each loose stool, maximum of 8 tablets in 24 hours 12/11/19 20 2019 Inactive atorvastatin 40 mg tablet RxNorm: 952259 1 Tablet(s) Oral every day 11/29/19 20 2020 Inactive sertraline 100 mg tablet RxNorm: 362462 1 Tablet(s) Oral 11/28/19 20 2019 Inactive quetiapine 100 mg tablet RxNorm: 637201 1 Tablet(s) Oral every night at bedtime 11/28/19 20 2019 Inactive omeprazole 20 mg capsule,delayed release RxNorm: 995983 1 Capsule(s) Oral every day 11/20/19 20 2019 Inactive amoxicillin 250 mg capsule RxNorm: 094997 1 Capsule(s) Oral three times a day 11/07/19 20 2019 Inactive multivitamin with iron-mineral tablet RxNorm: 1 Tablet(s) Oral every day 10/29/19 20 2021 Inactive cetirizine 10 mg tablet RxNorm: 3042267 1 Tablet(s) PO daily 10/20/19 20 2019 Inactive This refill negates all other refills of this medication. Please do not auto refill Singulair 10 mg tablet RxNorm: 942297 1 Tablet(s) PO daily 10/20/19 20 2019 Inactive This refill negates all other refills of this medication gabapentin 300 mg capsule RxNorm: 110124 1 Capsule(s) PO TID 10/20/19 20 2019 Inactive lisinopril 2.5 mg tablet RxNorm: 229240 1 Tablet(s) PO daily 10/20/19 20 2019 Inactive levothyroxine 50 mcg tablet RxNorm: 022012 1 Tablet(s) PO daily 10/20/19 20 2019 Inactive This refill negates all other refills of this medication fenugreek seed extract 500 mg capsule RxNorm: 1 Capsule(s) Oral three times a day 10/17/19 20 2021 Inactive hydrochlorothiazide 25 mg tablet RxNorm: 098905 1 Tablet(s) Oral every day 10/17/19 20 2019 Inactive Alcohol Prep Pads RxNorm: 190453 1 Patch TOP QAM 10/16/19 20 2020 Inactive loperamide 2 mg tablet RxNorm: 125499 1 Tablet(s) Oral as needed take one [...] 2019 Inactive hydrochlorothiazide 25 mg tablet RxNorm: 018534 1 Tablet(s) Oral every day 09/19/20 19 2019 Inactive Sudafed 12 Hour 120 mg tablet,extended release RxNorm: 6765306 1 Tablet(s) Oral every 12 hours as needed 09/11/20 19 2018 Inactive omeprazole 20 mg capsule,delayed release RxNorm: 098995 1 Capsule(s) Oral every day 09/07/20 19 2019 Inactive Sudafed 12 Hour 120 mg tablet,extended release RxNorm: 5841797 1 Tablet(s) Oral every 12 hours as needed 09/04/20 19 2018 Inactive pantoprazole 40 mg tablet,delayed release RxNorm: 565566 1 Tablet(s) Oral every day 08/24/20 19 2018 Inactive discontinue any other H2Blkr. and PPI albuterol sulfate 2.5 mg/3 mL (0.083 %) solution for nebulization RxNorm: 884361 1 Vial Inhalation every four hours as needed as needed for dyspnea 08/17/20 19 2019 Inactive 60/box. This refill negates all other refills of this medication. Please do not fill early. Please do not auto refill. Symbicort 160 mcg-4.5 mcg/actuation HFA aerosol inhaler RxNorm: 1776309 2 Puff(s) INH BID 08/17/20 19 No Stop Date Active Alcohol Prep Pads RxNorm: 336499 1 Patch TOP QAM 08/17/20 19 2019 Inactive Ventolin HFA 90 mcg/actuation aerosol inhaler RxNorm: 173346 2 Puff(s) INH QID 08/09/20 19 2019 Inactive Please do not fill early. Please do not auto refill. This refill negates all other refills of this medication True Metrix Glucose Test Strip RxNorm: 1 Test Strips Miscellaneous QA 08/09/20 19 2019 Inactive 100/container atorvastatin 40 mg tablet RxNorm: 956538 1 Tablet(s) Oral every day 07/04/20 19 2019 Inactive levmetamfetamine 50 mg nasal inhaler RxNorm: 1 Unit(s) NASAL Q3-4H Do not use more than every 3 hours or 8 times/24hours 06/26/20 19 2021 Inactive Please do not auto refill. This refill negates all other refills of this medication buspirone 7.5 mg tablet RxNorm: 106341 1 Tablet(s) PO BID 06/26/20 19 2020 Inactive This refill negates all other refills of this medication hydrochlorothiazide 12.5 mg tablet RxNorm: 161384 1 Tablet(s) PO QAM 06/26/20 19 2019 Inactive Ventolin HFA 90 mcg/actuation aerosol inhaler RxNorm: 831115 2 Puff(s) INH QID 06/26/20 19 2018 Inactive Please do not fill early. Please do not auto refill. This refill negates all other refills of this medication Singulair 10 mg tablet RxNorm: 479818 1 Tablet(s) PO daily 06/26/20 19 2019 Inactive This refill negates all other refills of this medication cetirizine 10 mg tablet RxNorm: 6873266 1 Tablet(s) PO daily 06/26/20 19 2019 Inactive This refill negates all other refills of this medication. Please do not auto refill levothyroxine 50 mcg tablet RxNorm: 439155 1 Tablet(s) PO daily 06/26/20 19 2019 Inactive This refill negates all other refills of this medication diclofenac sodium 75 mg tablet,delayed release RxNorm: 145990 1 Tablet(s) PO BID 06/26/20 19 2019 Inactive This refill negates all other refills of this medication ranitidine 150 mg tablet RxNorm: 211793 1 Tablet(s) PO BID 06/26/20 19 2018 Inactive This refill negates all other refills of this medication Calcium 600-D3 Plus (mag-zinc) 600 mg calcium-800 unit-50 mg tablet RxNorm: 1 Tablet(s) PO daily take an additonal tablet for itching. 06/26/20 19 2018 Inactive This refill negates all other refills of this medication albuterol sulfate 2.5 mg/3 mL (0.083 %) solution for nebulization RxNorm: 765544 1 Vial INH QID 06/26/20 19 2018 Inactive 60/box. This refill negates all other refills of this medication. Please do not fill early. Please do not auto refill. lisinopril 2.5 mg tablet RxNorm: 202259 1 Tablet(s) PO daily 06/21/20 19 2019 Inactive gabapentin 300 mg capsule RxNorm: 115272 1 Capsule(s) PO TID 06/21/20 19 2019 Inactive atorvastatin 20 mg tablet RxNorm: 668076 1 Tablet(s) PO QHS 06/07/20 19 2018 Inactive This refill negates all other refills of this medication TRUEplus Lancets 30 gauge RxNorm: 1 Lancets Miscellaneous QAM 05/29/20 19 2018 Inactive 100/box gabapentin 300 mg capsule RxNorm: 552608 1 Capsule(s) PO TID 05/03/20 19 2018 Inactive Flintstones Complete (iron) 18 mg iron chewable tablet RxNorm: 1 Tablet(s) PO daily 04/04/20 19 2021 Inactive This refill negates all other refills of this medication gabapentin 300 mg capsule RxNorm: 539099 1 Capsule(s) PO TID as needed 02/01/20 19 2018 Inactive True Metrix Glucose Test Strip RxNorm: 1 Test Strips Miscellaneous QAM 02/01/20 19 2018 Inactive 100/container Alcohol Prep Pads RxNorm: 341684 1 Patch TOP QAM 02/01/20 19 2018 Inactive TRUEplus Lancets 30 gauge RxNorm: 1 Lancets Miscellaneous QAM 02/01/20 19 2018 Inactive 100/box lisinopril 2.5 mg tablet RxNorm: 122251 1 Tablet(s) PO daily 12/28/19 19 2018 Inactive ranitidine 150 mg tablet RxNorm: 406901 1 Tablet(s) PO BID 10/21/19 19 2018 Inactive This refill negates all other refills of this medication albuterol sulfate 2.5 mg/3 mL (0.083 %) solution for nebulization RxNorm: 981161 1 Vial INH QID 10/21/19 19 2018 [...] this medication gabapentin 300 mg capsule RxNorm: 521248 1 Capsule(s) PO TID as needed 10/21/192018 Inactive atorvastatin 20 mg tablet RxNorm: 131202 1 Tablet(s) PO QHS 10/21/19 19 2018 Inactive This refill negates all other refills of this medication trazodone 50 mg tablet RxNorm: 347373 1 Tablet(s) PO QHS 10/21/19 19 2018 Inactive This refill negates all other refills of this medication Ventolin HFA 90 mcg/actuation aerosol inhaler RxNorm: 534065 2 Puff(s) INH QID 10/21/192018 Inactive Please do not fill early. Please do not auto refill. This refill negates all other refills of this medication Calcium 600-D3 Plus 600 mg calcium-800 unit-50 mg tablet RxNorm: 1 Tablet(s) PO daily take an additonal tablet for itching. 10/21/192018 Inactive This refill negates all other refills of this medication Singulair 10 mg tablet RxNorm: 100485 1 Tablet(s) PO daily 10/21/192018 Inactive This refill negates all other refills of this medication buspirone 7.5 mg tablet RxNorm: 691128 1 Tablet(s) PO BID 10/21/192018 Inactive This refill negates all other refills of this medication diclofenac sodium 75 mg tablet,delayed release RxNorm: 960606 1 Tablet(s) PO BID 10/21/192018 Inactive This refill negates all other refills of this medication hydrochlorothiazide 12.5 mg tablet RxNorm: 705381 1 Tablet(s) PO QAM 10/21/192018 Inactive metoprolol succinate ER 50 mg tablet,extended release 24 hr RxNorm: 984183 1 Tablet(s) PO daily 10/21/192018 Inactive This refill negates all other refills of this medication levothyroxine 50 mcg tablet RxNorm: 940133 1 Tablet(s) PO daily 10/21/192018 Inactive This refill negates all other refills of this medication cetirizine 10 mg tablet RxNorm: 7181184 1 Tablet(s) PO daily 10/21/192018 Inactive This refill negates all other refills of this medication. Please do not auto refill Flintstones Complete (iron) 18 mg iron chewable tablet RxNorm: 1 Tablet(s) PO daily 10/21/192018 Inactive This refill negates all other refills of this medication buspirone 7.5 mg tablet RxNorm: 327270 1 Tablet(s) PO BID 10/12/19 19 2018 Inactive cetirizine 10 mg tablet RxNorm: 1552906 1 Tablet(s) PO daily 09/28/20 18 2018 Inactive Guaiasorb DM 10 mg-100 mg/5 mL oral liquid RxNorm: 778263 10 Milliliter(s) PO As needed every 4 hr 09/24/20 18 2018 Inactive Vicks Vaporub 4.7 %-1.2 %-2.6 % topical ointment RxNorm: 5859478 1 Application TOP TID 09/24/20 18 2018 Inactive levmetamfetamine 50 mg nasal inhaler RxNorm: 1 Unit(s) NASAL Q3-4H 09/24/20 18 2017 Inactive sertraline 50 mg tablet RxNorm: 864031 1 Tablet(s) PO daily 09/09/20 18 2018 Inactive Please note dose trazodone 50 mg tablet RxNorm: 601126 1 Tablet(s) PO QHS 09/06/20 18 2018 Inactive sertraline 50 mg tablet RxNorm: 999826 1 Tablet(s) PO daily 09/06/20 18 2017 Inactive amoxicillin 500 mg tablet RxNorm: 277021 1 Tablet(s) PO Q12H 08/31/20 18 2017 Inactive albuterol sulfate 2.5 mg/3 mL (0.083 %) solution for nebulization RxNorm: 815054 1 Vial INH QID 08/10/20 18 2018 Inactive 60/box. Please do not fill early. Please do not auto refill. Prozac 10 mg capsule RxNorm: 969800 1 Capsule(s) PO daily 08/09/20 18 2017 Inactive buspirone 7.5 mg tablet RxNorm: 140104 1 Tablet(s) PO BID 08/09/20 18 2018 Inactive gabapentin 300 mg capsule RxNorm: 298956 1 Capsule(s) PO TID as needed 08/01/20 18 2018 Inactive hydrochlorothiazide 12.5 mg tablet RxNorm: 290705 1 Tablet(s) PO QAM 08/01/20 18 2018 Inactive ranitidine 150 mg tablet RxNorm: 967212 1 Tablet(s) PO BID 08/01/20 18 2018 Inactive Macrobid 100 mg capsule RxNorm: 412327 1 Capsule(s) PO Q12H 06/21/20 18 2017 Inactive Singulair 10 mg tablet RxNorm: 789692 1 Tablet(s) PO daily 06/14/20 18 2018 Inactive Ventolin HFA 90 mcg/actuation aerosol inhaler RxNorm: 6808692 2 Puff(s) INH QID 06/14/20 18 2018 Inactive Singulair 10 mg tablet RxNorm: 544349 1 Tablet(s) PO daily 06/14/20 18 2017 Inactive buspirone 7.5 mg tablet RxNorm: 767345 1 Tablet(s) PO BID 06/14/20 18 2017 Inactive Prozac 10 mg capsule RxNorm: 564263 1 Capsule(s) PO daily 06/14/20 18 2017 Inactive Neilmed Pediatric Sinus Rinse Refill packet RxNorm: 1 Unit Dose NASAL PRN 05/31/20 18 2021 Inactive diclofenac sodium 75 mg tablet,delayed release RxNorm: 166342 1 Tablet(s) PO BID 05/31/20 18 2017 Inactive lisinopril 2.5 mg tablet RxNorm: 876361 1 Tablet(s) PO daily 05/31/20 18 2017 Inactive metoprolol succinate ER 50 mg tablet,extended release 24 hr RxNorm: 361836 1 Tablet(s) PO daily 05/31/20 18 2017 Inactive levothyroxine 50 mcg tablet RxNorm: 022056 1 Tablet(s) PO daily 05/31/20 18 2017 Inactive TRUEplus Lancets 30 gauge RxNorm: 1 Lancets Miscellaneous QAM 05/31/20 18 2017 Inactive 100/box Ventolin HFA 90 mcg/actuation aerosol inhaler RxNorm: 829212 2 Puff(s) INH QID 05/31/20 18 2017 Inactive Aleve 220 mg capsule RxNorm: 1352624 1 Capsule(s) PO BID 05/31/20 18 2018 Inactive ranitidine 150 mg tablet RxNorm: 572977 1 Tablet(s) PO BID 05/31/20 18 2017 Inactive gabapentin 300 mg capsule RxNorm: 531565 1 Capsule(s) PO TID as needed 05/31/20 18 2017 Inactive atorvastatin 20 mg tablet RxNorm: 105299 1 Tablet(s) PO QHS 05/31/20 18 2017 Inactive True Metrix Glucose Test Strip RxNorm: 1 Test Strips Miscellaneous QAM 05/31/20 18 2017 Inactive 50/container Calcium 600-D3 Plus 600 mg calcium-800 unit-50 mg tablet RxNorm: 1 Tablet(s) PO daily take an additonal tablet for itching. 05/31/20 18 2017 Inactive hydrochlorothiazide 12.5 mg tablet RxNorm: 965031 1 Tablet(s) PO QAM 05/31/20 18 2017 Inactive Flintstones Complete (iron) 18 mg iron chewable tablet RxNorm: 1 Tablet(s) PO daily 05/31/20 18 2017 Inactive d-mannose oral powder RxNorm: PO 18 2021 Inactive True Metrix Glucose Meter RxNorm: miscellaneous 08/17/20 19 2018 Inactive sertraline 50 mg tablet RxNorm: 837252 1 Tablet(s) PO daily 11/28/19 20 2019 Inactive loperamide 2 mg tablet RxNorm: 141849 oral 09/29/20 19 2018 Inactive Symbicort 160 mcg-4.5 mcg/actuation HFA aerosol inhaler RxNorm: 5109041 2 Puff(s) INH BID 08/17/20 19 2018 Inactive Medication Administered No Medication Administered data Procedures Procedure Codes Date Electrocardiogram CPT-4: 54560 05/14/2020 Electrocardiogram Finding/Normal CPT-4: 64329Lflumlf 05/14/2020 Tobacco Assessment/Screening CPT-4: TCA Fall Risk Assessment SNOMED CT: 87475429 4 CPT-4: DFRA 01/01/2020 Functional Assessment CPT-4: DFA 01/01/2020 [place] Assessment CPT-4: DSWA 11/04 Patient Health Questionnaire CPT-4: DPHQ [place] Assessment CPT-4: DSWA 10/03 Hypertension CPT-4: HTN 10/17/2019 Fall Risk Assessment SNOMED CT: 63920293 4 CPT-4: DFRA 09/19/2019 Functional Assessment CPT-4: DFA 09/19/2019 Urinalysis, dip stick CPT-4: 53458 06/21/2019 Tobacco Assessment/Screening CPT-4: TCA Patient Health Questionnaire CPT-4: DPHQ AHA/REBECCA Classification Assessment CPT-4: DAHA 04/25/2019 Controlled Substance Report CPT-4: CTRSU 04/03 Urinalysis, dip stick CPT-4: 14415 03/28/2019 Urinalysis, dip stick CPT-4: 61748 03/28/2019 [id number]-Qnrtjtezswcyxuk CPT-4: 27859 Unknown L9J-Inwnszrlhstlfym CPT-4: 38719 Unknown L1I-Eauzcikhxnblhsn CPT-4: 69573 Unknown Gynecology Referral SNOMED CT: 607142337 CPT-4: R14 Unknown Vital Signs Date Vital 05/14/2020 Blood Pressure 1: 100/82 Code: 8480-6 BMI: 54.7 Code: 67799-4 Heart Rate 1: 86 bpm Height: 4'11 Code: 8302-2 Respiratory Rate: 18 bpm SpO2: 98% Temperature: 36.6 (C) / 97.9 (F) Weight: 271 lbs Code: 50442-6 Reason For Visit Reason For Visit Effective Dates Notes hypertension 05/14/2020 diabetes mellitus 05/14/2020 Interim health update 05/14/2020 Encounters Encounter Performer Location Location Address Codes Magdi e HOME VISIT EST PATIENT Diagnosis: Type 2 diabetes mellitus with peripheral neuropathy[ICD10: E11.42] Diagnosis: Right wrist pain[ICD10: M25.531] Diagnosis: Hypertensive heart disease with heart failure[ICD10: I11.0] Anna Culver [place] [facility] [id number] [place] [address] CPT-4: 45144 05/14/2020 Plan of Care Planned Activity Notes Codes [...] A1C 6.0 07/04/2019 Hgb A1C 5.6 10/17/2019 [place] 04/11-instructed on good daily foot care [...] anxiety and depressed mood routine follow up [place] [facility] [place] E03.9-244.9 Hypothyroidism, unspecified cont levothyroxine N39.46-788.33 Mixed [...] verbalized understanding of all above topics. 05/14/2020 Patient Education: Patient Medication Summary Completed 05/14/2020 Patient Education: Diabetes Complete d 05/14/2020 Patient Education: Hypertension Completed 05/14/2020 Care Plan: Overnight Pulse ox Ordere d 05/14/2020 Appointment: Anna uClver WPtel: [address] [place] [address] E452 04/17/2020 Appointment: Anna Culver WPtel: [phone] [place] [address] E452 03/21/2020 Appointment: Anna Culver WPtel: [address] [place] [address] E452 02/14/2020 Appointment: Anna Culver WPtel: [address] [place] [address] E452 01/24/2020 Appointment: Anna Culver WPtel: [phone] [facility] [address] [place] [address] E452 01/01/2020 Appointment: Anna Culver WPtel: [phone] E452 11/28/2019 Appointment: Anna Culver WPtel: [address] [place] [address] E452 10/17/2019 Appointment: Anna Culver WPtel: [phone] E452 09/19/2019 Appointment: Sudha Hernadez WPtel: [address] [facility] [place] [address] [id number] E452 07/04/2019 Appointment: Sudha Hernadez WPtel: [address] [place] [address] [id number] E452 06/21/2019 Appointment: Charlene Oropeza WPtel: [address] [facility] [place] [address] [id number] E452 05/24/2019 Appointment: Mallory Delgado [facility] 04/27/2019 Appointment: Charlene Oropeza WPtel: [address] [place] [address] [id number] E452 04/25/2019 Appointment: Rasta Palafox WPtel: [address] [place] [address] [id number] E452 03/28/2019 Appointment: Rasta Palafox WPtel: [address] [place] [address] [id number] E452 02/14/2019 Appointment: Rasta Palafox WPtel: [address] [place] [address] [id number] E452 01/31/2019 Appointment: Rasta Palafox WPtel: [address] [facility] [address] [id number] E420 12/27/2018 Referral: Pending Gynecology Referral Information Referral Processed Referral: Pending Pulmonolog y Referral Information Referral Processed Referral: Pending Psychiatry Referral Information Referral Initiated Referral: Pending Respirator y Services Referral Information Referral Initiated Referral: Pending Ophthalmology Referral Information Referral Initiated Referral: [facility] WPtel: [address] [facility] [address] Manager Configuration placed a call out to the patient to notify her that it has been recommended that she be seen by a urologist. Patient agreed to be seen, does not have a provider of choice and no transportation issues. Manager Configuration faxed referral and clinical notes to [facility] in [place], [place] near the patient's home. Patient to [...] seen and prefers a provider in the [place] or [place] area. Manager Configuration placed a call out to everyone listed in the area and the only location that was able to accept the patient's insurance was [address] [address] and spoke with Maylin. Maylin asked that the patient's referral, face sheet and visit notes be faxed to . Manager Configuration faxed over requested documents. Patient appointment confirmation letter generated and mailed to her home address. Patient to call to schedule an appointment. Processed Referral: [facility] WPtel: [address] [facility] [address] [id number] Patient notified that it has been advised that she be seen by Neurology. Patient agreed to be seen and prefers to be seen by a provider in the [place], [place] area. Patient denies any concerns with transportation, and prefers to schedule her own appointment. Manager Configuration placed a call out to [facility] and spoke with Neeraj P: who confirmed that their office is able to accept new patients and the patient's insurance. After confirming the providers fax number, law writer faxed over the patient's referral, and [...] Assessment and plan reviewed with patient . M25.534-939. Right wrist pain patient complaining of chronic [...] A1C 6.0; 07/04/2019 Hgb A1C 5.6 10/17/2019 [place] 04/11-instructed on good daily foot care [...] up G47.33-327.23 Obstructive sleep apnea (adult) (pediatric); J45.207-493.90 Asthma continue inhalers nebulizer cpap not wearing for the past few days-feels like smothering with the mask on- Dr. Garcia, pulmonology next telehealth visit 05/26/2020 F43.23-309.28 Adjustment disorder with mixed anxiety and depressed mood routine follow up [place] [facility] [place] E03.9-244.9 Hypothyroidism, unspecified cont levothyroxine N39.46-788.33 Mixed [...]
--- OUTSIDE RECORDS SUMMARY | 2023-12-07 02:12 | XMS_ITS | CCD ---
Author Name Leena Culver NP Address [address] [place] [address] [address] [place] [address] Phone [facility] Phone Care Team Providers Care Field Manager Name Role Phone Anna Culver NP Primary Care Provider Unav ailable Unavailable Chronic Care Management Unavaila ble Summary Purpose DataExchange Insurance Providers Payer name Policy type / Coverage type Covered green party ID Effective Begin Date Effective End Date SUKI MAYO [id number] Unknown Unknown Family history Mother Diagnosis Age [...] Unknown Disability 05/31/[address]: 219710187 Has never s moked or chewed tobacco 05/31/[address]: 121677519 Never drinks alco hol 05/31/2018 Has the [...] use ICD-10: Z01.89 ICD-9: V72.85 01/01/2020 Active [place] [facility] ICD-10: H10.029 ICD-9: 372.03 12/29/2019 Active [...] 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 ICD-10: Z79.899 ICD-9: [...] 12 Hour 120 mg tablet,extended release RxNorm: 3061832 TAKE 1 TABLET BY MOUTH EVERY 12 HOURS NEEDED 06/11/20 20 2019 Inactive hydrochlorothiazide 25 mg tablet RxNorm: 698328 TAKE (1) TABLET BY MOUTH EVERY DAY 06/11/20 20 2019 Inactive omeprazole 20 mg capsule,delayed release RxNorm: 560172 TAKE 1 CAPSULE BY MOUTH EVERY DAY 05/14/20 20 2020 Inactive metformin 500 mg tablet RxNorm: 387062 1 Tablet(s) Oral every day 05/12/20 20 2019 Inactive True Metrix Glucose Test Strip RxNorm: 1 Test Strips Miscellaneous two times a day as needed 04/17/20 No Stop Date Active metformin 500 mg tablet RxNorm: 800204 1 Tablet(s) Oral every day 04/17/20 20 2019 Inactive diclofenac sodium 75 mg tablet,delayed release RxNorm: 491077 1 Tablet(s) PO BID 04/14/20 20 2021 Inactive This refill negates all other refills of this medication Sudafed 12 Hour 120 mg tablet,extended release RxNorm: 5005911 TAKE 1 TABLET BY MOUTH EVERY 12 HOURS NEEDED 03/14/20 20 2019 Inactive True Metrix Glucose Test Strip RxNorm: 1 Test Strips Miscellaneous every morning 03/13/20 20 2019 Inactive 100/container loperamide 2 mg tablet RxNorm: 418132 1 Tablet(s) Oral as needed take one tablet after each loose stool, maximum of 8 tablets in 24 hours 02/22/20 20 2019 Inactive True Metrix Glucose Test Strip RxNorm: 1 Test Strips Miscellaneous QAM 02/22/20 20 2019 Inactive 100/container cetirizine 10 mg tablet RxNorm: 6942364 1 Tablet(s) PO daily 01/17/20 20 2019 Inactive levothyroxine 50 mcg tablet RxNorm: 883585 1 Tablet(s) PO daily 01/17/20 20 2020 Inactive gabapentin 300 mg capsule RxNorm: 646965 1 Capsule(s) PO TID 01/17/20 20 2019 Inactive loperamide 2 mg tablet RxNorm: 671003 1 Tablet(s) Oral as needed take one tablet after each loose stool, maximum of 8 tablets in 24 hours 01/17/20 20 2019 Inactive quetiapine 100 mg tablet RxNorm: 700892 1 Tablet(s) Oral every night at bedtime 01/17/20 20 2019 Inactive lisinopril 2.5 mg tablet RxNorm: 829190 1 Tablet(s) PO daily 01/15/20 20 2020 Inactive Singulair 10 mg tablet RxNorm: 609357 1 Tablet(s) PO daily 01/15/20 20 2020 Inactive levothyroxine 50 mcg tablet RxNorm: 040901 1 Tablet(s) PO daily 01/15/20 20 2019 Inactive gabapentin 300 mg capsule RxNorm: 610405 1 Capsule(s) PO TID 01/15/20 20 2019 Inactive cetirizine 10 mg tablet RxNorm: 7672080 1 Tablet(s) PO daily 01/15/20 20 2019 Inactive gentamicin 0.3 % eye drops RxNorm: 901469 1 Drop(s) ophthalmic (eye) four times a day 12/29/19 20 2019 Inactive gentamicin 0.3 % eye drops RxNorm: 419681 1 Drop(s) ophthalmic (eye) four times a day 12/29/19 20 2019 Inactive gentamicin 0.3 % eye drops RxNorm: 890271 1 Drop(s) ophthalmic (eye) four times a day 12/29/19 20 2019 Inactive hydrochlorothiazide 25 mg tablet RxNorm: 303981 1 Tablet(s) Oral every day 12/21/19 20 2019 Inactive Sudafed 12 Hour 120 mg tablet,extended release RxNorm: 8794833 TAKE (1) TABLET BY MOUTH EVERY 12 HOURS NEEDED 12/21/19 20 2019 Inactive loperamide 2 mg tablet RxNorm: 077140 1 Tablet(s) Oral as needed take one tablet after each loose stool, maximum of 8 tablets in 24 hours 12/11/19 20 2019 Inactive loperamide 2 mg tablet RxNorm: 573655 1 Tablet(s) Oral as needed take one tablet after each loose stool, maximum of 8 tablets in 24 hours 12/11/19 20 2019 Inactive atorvastatin 40 mg tablet RxNorm: 419614 1 Tablet(s) Oral every day 11/29/19 20 2020 Inactive quetiapine 100 mg tablet RxNorm: 718889 1 Tablet(s) Oral every night at bedtime 11/28/19 20 2019 Inactive sertraline 100 mg tablet RxNorm: 863443 1 Tablet(s) Oral 11/28/19 20 2019 Inactive omeprazole 20 mg capsule,delayed release RxNorm: 282600 1 Capsule(s) Oral every day 11/20/19 20 2019 Inactive amoxicillin 250 mg capsule RxNorm: 585762 1 Capsule(s) Oral three times a day 11/07/19 20 2019 Inactive multivitamin with iron-mineral tablet RxNorm: 1 Tablet(s) Oral every day 10/29/19 20 2021 Inactive cetirizine 10 mg tablet RxNorm: 2961415 1 Tablet(s) PO daily 10/20/19 20 2019 Inactive This refill negates all other refills of this medication. Please do not auto refill Singulair 10 mg tablet RxNorm: 876577 1 Tablet(s) PO daily 10/20/19 20 2019 Inactive This refill negates all other refills of this medication gabapentin 300 mg capsule RxNorm: 793878 1 Capsule(s) PO TID 10/20/19 20 2019 Inactive lisinopril 2.5 mg tablet RxNorm: 648647 1 Tablet(s) PO daily 10/20/19 20 2019 Inactive levothyroxine 50 mcg tablet RxNorm: 676653 1 Tablet(s) PO daily 10/20/19 20 2019 Inactive This refill negates all other refills of this medication fenugreek seed extract 500 mg capsule RxNorm: 1 Capsule(s) Oral three times a day 10/17/19 20 2021 Inactive hydrochlorothiazide 25 mg tablet RxNorm: 907652 1 Tablet(s) Oral every day 10/17/19 20 2019 Inactive Alcohol Prep Pads RxNorm: 088385 1 Patch TOP QAM 10/16/19 20 2020 Inactive loperamide 2 mg tablet RxNorm: 093041 1 Tablet(s) Oral as needed take one [...] 09/19/202019 Inactive hydrochlorothiazide 25 mg tablet RxNorm: 346802 1 Tablet(s) Oral every day 09/19/202019 Inactive Sudafed 12 Hour 120 mg tablet,extended release RxNorm: 6314223 1 Tablet(s) Oral every 12 hours as needed 09/11/20 19 2018 Inactive omeprazole 20 mg capsule,delayed release RxNorm: 289082 1 Capsule(s) Oral every day 09/07/20 19 2019 Inactive Sudafed 12 Hour 120 mg tablet,extended release RxNorm: 0946250 1 Tablet(s) Oral every 12 hours as needed 09/04/20 19 2018 Inactive pantoprazole 40 mg tablet,delayed release RxNorm: 381996 1 Tablet(s) Oral every day 08/24/20 19 2018 Inactive discontinue any other H2Blkr. and PPI albuterol sulfate 2.5 mg/3 mL (0.083 %) solution for nebulization RxNorm: 786182 1 Vial Inhalation every four hours as needed as needed for dyspnea 08/17/20 19 2019 Inactive 60/box. This refill negates all other refills of this medication. Please do not fill early. Please do not auto refill. Symbicort 160 mcg-4.5 mcg/actuation HFA aerosol inhaler RxNorm: 8531892 2 Puff(s) INH BID 08/17/20 No Stop Date Active Alcohol Prep Pads RxNorm: 556177 1 Patch TOP QAM 08/17/20 19 2019 Inactive Ventolin HFA 90 mcg/actuation aerosol inhaler RxNorm: 982512 2 Puff(s) INH QID 08/09/202019 Inactive Please do not fill early. Please do not auto refill. This refill negates all other refills of this medication True Metrix Glucose Test Strip RxNorm: 1 Test Strips Miscellaneous QAM 08/09/20 19 2019 Inactive 100/container atorvastatin 40 mg tablet RxNorm: 289241 1 Tablet(s) Oral every day 07/04/20 19 2019 Inactive levmetamfetamine 50 mg nasal inhaler RxNorm: 1 Unit(s) NASAL Q3-4H Do not use more than every 3 hours or 8 times/24hours 06/26/20 19 2021 Inactive Please do not auto refill. This refill negates all other refills of this medication buspirone 7.5 mg tablet RxNorm: 470250 1 Tablet(s) PO BID 06/26/20 19 2020 Inactive This refill negates all other refills of this medication hydrochlorothiazide 12.5 mg tablet RxNorm: 544726 1 Tablet(s) PO QAM 06/26/20 19 2019 Inactive Ventolin HFA 90 mcg/actuation aerosol inhaler RxNorm: 229889 2 Puff(s) INH QID 06/26/20 19 2018 Inactive Please do not fill early. Please do not auto refill. This refill negates all other refills of this medication Singulair 10 mg tablet RxNorm: 038921 1 Tablet(s) PO daily 06/26/20 19 2019 Inactive This refill negates all other refills of this medication cetirizine 10 mg tablet RxNorm: 7093485 1 Tablet(s) PO daily 06/26/20 19 2019 Inactive This refill negates all other refills of this medication. Please do not auto refill levothyroxine 50 mcg tablet RxNorm: 193518 1 Tablet(s) PO daily 06/26/20 19 2019 Inactive This refill negates all other refills of this medication diclofenac sodium 75 mg tablet,delayed release RxNorm: 260229 1 Tablet(s) PO BID 06/26/20 19 2019 Inactive This refill negates all other refills of this medication ranitidine 150 mg tablet RxNorm: 549668 1 Tablet(s) PO BID 06/26/20 19 2018 Inactive This refill negates all other refills of this medication Calcium 600-D3 Plus (mag-zinc) 600 mg calcium-800 unit-50 mg tablet RxNorm: 1 Tablet(s) PO daily take an additonal tablet for itching. 06/26/20 19 2018 Inactive This refill negates all other refills of this medication albuterol sulfate 2.5 mg/3 mL (0.083 %) solution for nebulization RxNorm: 000543 1 Vial INH QID 06/26/20 19 2018 Inactive 60/box. This refill negates all other refills of this medication. Please do not fill early. Please do not auto refill. lisinopril 2.5 mg tablet RxNorm: 276241 1 Tablet(s) PO daily 06/21/20 19 2019 Inactive gabapentin 300 mg capsule RxNorm: 691215 1 Capsule(s) PO TID 06/21/20 19 2019 Inactive atorvastatin 20 mg tablet RxNorm: 651074 1 Tablet(s) PO QHS 06/07/20 19 2018 Inactive This refill negates all other refills of this medication TRUEplus Lancets 30 gauge RxNorm: 1 Lancets Miscellaneous QAM 05/29/20 19 2018 Inactive 100/box gabapentin 300 mg capsule RxNorm: 790202 1 Capsule(s) PO TID 05/03/20 19 2018 Inactive Flintssaranes Complete (iron) 18 mg iron chewable tablet RxNorm: 1 Tablet(s) PO daily 04/04/202021 Inactive This refill negates all other refills of this medication gabapentin 300 mg capsule RxNorm: 561149 1 Capsule(s) PO TID as needed 02/01/202018 Inactive True Metrix Glucose Test Strip RxNorm: 1 Test Strips Miscellaneous QAM 02/01/20 19 2018 Inactive 100/container Alcohol Prep Pads RxNorm: 282604 1 Patch TOP QAM 02/01/202018 Inactive TRUEplus Lancets 30 gauge RxNorm: 1 Lancets Miscellaneous QAM 02/01/20 19 2018 Inactive 100/box lisinopril 2.5 mg tablet RxNorm: 819525 1 Tablet(s) PO daily 12/28/192018 Inactive ranitidine 150 mg tablet RxNorm: 281263 1 Tablet(s) PO BID 10/21/19 19 2018 Inactive This refill negates all other refills of this medication albuterol sulfate 2.5 mg/3 mL (0.083 %) solution for nebulization RxNorm: 872992 1 Vial INH QID 10/21/192018 Inactive 60/box. [...] this medication gabapentin 300 mg capsule RxNorm: 229896 1 Capsule(s) PO TID as needed 10/21/19 19 2018 Inactive atorvastatin 20 mg tablet RxNorm: 203521 1 Tablet(s) PO QHS 10/21/19 19 2018 Inactive This refill negates all other refills of this medication trazodone 50 mg tablet RxNorm: 619430 1 Tablet(s) PO QHS 10/21/19 19 2018 Inactive This refill negates all other refills of this medication Ventolin HFA 90 mcg/actuation aerosol inhaler RxNorm: 780166 2 Puff(s) INH QID 10/21/19 19 2018 Inactive Please do not fill early. Please do not auto refill. This refill negates all other refills of this medication Calcium 600-D3 Plus 600 mg calcium-800 unit-50 mg tablet RxNorm: 1 Tablet(s) PO daily take an additonal tablet for itching. 10/21/192018 Inactive This refill negates all other refills of this medication Singulair 10 mg tablet RxNorm: 373226 1 Tablet(s) PO daily 10/21/192018 Inactive This refill negates all other refills of this medication buspirone 7.5 mg tablet RxNorm: 663769 1 Tablet(s) PO BID 10/21/192018 Inactive This refill negates all other refills of this medication diclofenac sodium 75 mg tablet,delayed release RxNorm: 621195 1 Tablet(s) PO BID 10/21/192018 Inactive This refill negates all other refills of this medication hydrochlorothiazide 12.5 mg tablet RxNorm: 808886 1 Tablet(s) PO QAM 10/21/19 19 2018 Inactive metoprolol succinate ER 50 mg tablet,extended release 24 hr RxNorm: 016074 1 Tablet(s) PO daily 10/21/192018 Inactive This refill negates all other refills of this medication levothyroxine 50 mcg tablet RxNorm: 154728 1 Tablet(s) PO daily 10/21/19 19 2018 Inactive This refill negates all other refills of this medication cetirizine 10 mg tablet RxNorm: 4623038 1 Tablet(s) PO daily 10/21/19 19 2018 Inactive This refill negates all other refills of this medication. Please do not auto refill Flintstones Complete (iron) 18 mg iron chewable tablet RxNorm: 1 Tablet(s) PO daily 10/21/19 19 2018 Inactive This refill negates all other refills of this medication buspirone 7.5 mg tablet RxNorm: 635565 1 Tablet(s) PO BID 10/12/19 19 2018 Inactive cetirizine 10 mg tablet RxNorm: 1314764 1 Tablet(s) PO daily 09/28/20 18 2018 Inactive Guaiasorb DM 10 mg-100 mg/5 mL oral liquid RxNorm: 690246 10 Milliliter(s) PO As needed every 4 hr 09/24/20 18 2018 Inactive Vicks Vaporub 4.7 %-1.2 %-2.6 % topical ointment RxNorm: 2664492 1 Application TOP TID 09/24/20 18 2018 Inactive levmetamfetamine 50 mg nasal inhaler RxNorm: 1 Unit(s) NASAL Q3-4H 09/24/20 18 2017 Inactive sertraline 50 mg tablet RxNorm: 682223 1 Tablet(s) PO daily 09/09/20 18 2018 Inactive Please note dose trazodone 50 mg tablet RxNorm: 126391 1 Tablet(s) PO QHS 09/06/20 18 2018 Inactive sertraline 50 mg tablet RxNorm: 383709 1 Tablet(s) PO daily 09/06/20 18 2017 Inactive amoxicillin 500 mg tablet RxNorm: 825986 1 Tablet(s) PO Q12H 08/31/20 18 2017 Inactive albuterol sulfate 2.5 mg/3 mL (0.083 %) solution for nebulization RxNorm: 815396 1 Vial INH QID 08/10/20 18 2018 Inactive 60/box. Please do not fill early. Please do not auto refill. Prozac 10 mg capsule RxNorm: 888297 1 Capsule(s) PO daily 08/09/20 18 2017 Inactive buspirone 7.5 mg tablet RxNorm: 142108 1 Tablet(s) PO BID 08/09/20 18 2018 Inactive gabapentin 300 mg capsule RxNorm: 336520 1 Capsule(s) PO TID as needed 08/01/20 18 2018 Inactive hydrochlorothiazide 12.5 mg tablet RxNorm: 438150 1 Tablet(s) PO QAM 08/01/20 18 2018 Inactive ranitidine 150 mg tablet RxNorm: 688702 1 Tablet(s) PO BID 08/01/20 18 2018 Inactive Macrobid 100 mg capsule RxNorm: 651253 1 Capsule(s) PO Q12H 06/21/20 18 2017 Inactive Singulair 10 mg tablet RxNorm: 917608 1 Tablet(s) PO daily 06/14/20 18 2018 Inactive Ventolin HFA 90 mcg/actuation aerosol inhaler RxNorm: 7248591 2 Puff(s) INH QID 06/14/20 18 2018 Inactive Singulair 10 mg tablet RxNorm: 883316 1 Tablet(s) PO daily 06/14/20 18 2017 Inactive buspirone 7.5 mg tablet RxNorm: 833518 1 Tablet(s) PO BID 06/14/20 18 2017 Inactive Prozac 10 mg capsule RxNorm: 515497 1 Capsule(s) PO daily 06/14/20 18 2017 Inactive Neilmed Pediatric Sinus Rinse Refill packet RxNorm: 1 Unit Dose NASAL PRN 05/31/20 18 2021 Inactive diclofenac sodium 75 mg tablet,delayed release RxNorm: 930356 1 Tablet(s) PO BID 05/31/20 18 2017 Inactive lisinopril 2.5 mg tablet RxNorm: 076989 1 Tablet(s) PO daily 05/31/20 18 2017 Inactive metoprolol succinate ER 50 mg tablet,extended release 24 hr RxNorm: 743934 1 Tablet(s) PO daily 05/31/20 18 2017 Inactive levothyroxine 50 mcg tablet RxNorm: 681754 1 Tablet(s) PO daily 05/31/20 18 2017 Inactive TRUEplus Lancets 30 gauge RxNorm: 1 Lancets Miscellaneous QAM 05/31/20 18 2017 Inactive 100/box Ventolin HFA 90 mcg/actuation aerosol inhaler RxNorm: 665711 2 Puff(s) INH QID 05/31/20 18 2017 Inactive Aleve 220 mg capsule RxNorm: 3560026 1 Capsule(s) PO BID 05/31/20 18 2018 Inactive ranitidine 150 mg tablet RxNorm: 961506 1 Tablet(s) PO BID 05/31/20 18 2017 Inactive gabapentin 300 mg capsule RxNorm: 157989 1 Capsule(s) PO TID as needed 05/31/20 18 2017 Inactive atorvastatin 20 mg tablet RxNorm: 086696 1 Tablet(s) PO QHS 05/31/20 18 2017 Inactive True Metrix Glucose Test Strip RxNorm: 1 Test Strips Miscellaneous [facility] 05/31/20 18 2017 Inactive 50/container Calcium 600-D3 Plus 600 mg calcium-800 unit-50 mg tablet RxNorm: 1 Tablet(s) PO daily take an additonal tablet for itching. 05/31/20 18 2017 Inactive hydrochlorothiazide 12.5 mg tablet RxNorm: 325621 1 Tablet(s) PO QAM 05/31/20 18 2017 Inactive Flintstones Complete (iron) 18 mg iron chewable tablet RxNorm: 1 Tablet(s) PO daily 05/31/20 18 2017 Inactive d-mannose oral powder RxNorm: PO 18 2021 Inactive True Metrix Glucose Meter RxNorm: miscellaneous 08/17/20 19 2018 Inactive sertraline 50 mg tablet RxNorm: 472226 1 Tablet(s) PO daily 11/28/19 20 2019 Inactive loperamide 2 mg tablet RxNorm: 192656 oral 09/29/20 19 2018 Inactive Symbicort 160 mcg-4.5 mcg/actuation HFA aerosol inhaler RxNorm: 9964091 2 Puff(s) INH BID 08/17/20 19 2018 Inactive Medication Administered No Medication Administered data Results Observation Observation Code Item Item Code Result Date Service Location VITAMIN B-12 08642 Vitamin B12 2132-9 299 pg/mL 06/13 020 [facility] [address] [place] [address] DIRECT LDL - CHOL 58846 LDL-Direct 42750-5 103 mg/dL 0 020 [facility] [address] [place] [address] PREALBUMIN 14822 Prealbumin 51735-3 30 mg/dL 020 [facility] [address] [place] [address] TSH 01785 TSH 78982-5 0.731 uIU/mL 020 [facility] [address] [place] [address] TRIGLYCERIDES 21944 Triglycerides 2571-8 174 mg/dL 020 [facility] [address] [place] [address] TRIGLYCERIDES 63676 VLDL 66761-0 35 mg/dL 020 [facility] [address] [place] [address] SLIDE SLIDE_SCAN Platelet Estimate 9317-9 Normal 0 020 [facility] [address] [place] [address] SLIDE SLIDE_SCAN Poikilocytosis 779-9 2+ 06/03 10/04 020 [facility] [address] [place] [address] 78183 SLIDE SLIDE_SCAN Echinocytes 7790-9 1+ 020 [facility] [address] [place] [address] 30832 SLIDE SLIDE_SCAN Elliptocytes 68795-3 1+ 020 [facility] [address] [place] [address]9710 T7P-XDXUSNVASYELD IN 4548-4 Glyco HGB A1C 21959-9 5.5 % 020 [facility] [address] [place] [address] 45617 Z6I-TMLDTMGPHJHXA IN [facility]8-4 eAG 77207-5 111 mg/dL 020 [facility] [address] [place] [address] COMPLETE CBC W/ DIFF WBC 63266 WBC 6690-2 12.5 K/ul 020 [facility] [address] [place] [address] COMPLETE CBC W/ DIFF WBC 84426 RBC 789-8 4.34 M/uL 020 [facility] [address] [place] [address] COMPLETE CBC W/ DIFF WBC 61139 Hemoglobin 718-7 12.0 g/dL 020 [facility] [address] [place] [address] COMPLETE CBC W/ DIFF WBC 02936 Hematocrit 4544-3 38.8 % 020 [facility] [address] [place] [address] COMPLETE CBC W/ DIFF WBC 30823 MCV 787-2 89.5 fL 020 [facility] [address] [place] [address] COMPLETE CBC W/ DIFF WBC 82743 MCH 785-6 27.8 pg 020 [facility] [address] [place] [address] 26827 COMPLETE CBC W/ DIFF WBC 29160 MCHC 786-4 31.0 g/dL 020 [facility] [address] [place] [address] 47434 COMPLETE CBC W/ DIFF WBC 35173 RDW 788-0 16.0 % 020 [facility] [address] [place] [address] 88866 COMPLETE CBC W/ DIFF WBC 98275 Platelet Count 777-3 360 K/uL 020 [facility] [address] [place] [address] 87658 COMPLETE CBC W/ DIFF WBC 56495 MPV 94869-7 10.0 fL 020 [facility] [address] [place] [address] 44834 COMPLETE CBC W/ DIFF WBC 39220 Neutrophils % 770-8 84.6 % 020 [facility] [address] [place] [address] 31868 COMPLETE CBC W/ DIFF WBC 16142 Lymphocytes % 736-9 11.4 % 020 [facility] [address] [place] [address] 76356 COMPLETE CBC W/ DIFF WBC 66045 Monocytes % 5905-5 3.3 % 020 [facility] [address] [place] [address] 44146 COMPLETE CBC W/ DIFF WBC 31240 Eosinophils % 713-8 0.6 % 020 [facility] [address] [place] [address] 55061 COMPLETE CBC W/ DIFF WBC 13104 Basophils% 706-2 0.1 % 020 [facility] [address] [place] [address] COMPLETE CBC W/ DIFF WBC 41227 Absolute Neutrophil 751-8 73120 /ul 020 [facility] [address] [place] [address] COMPLETE CBC W/ DIFF WBC 48016 Absolute Lymphocyte 44655-1 1425 /ul 020 [facility] [address] [place] [address] COMPLETE CBC W/ DIFF WBC 85289 Absolute Monocyte 742-7 413 /ul 020 [facility] [address] [place] [address] COMPLETE CBC W/ DIFF WBC 56325 Absolute Eosinophil 711-2 75 /ul 020 [facility] [address] [place] [address] COMPLETE CBC W/ DIFF WBC 77835 Absolute Basophil 704-7 13 /ul 020 [facility] [address] [place] [address] CHOLESTEROL 23209 Cholesterol 2093-3 162 mg/dL 020 [facility] [address] [place] [address] CHEM 14 (METABOLIC PANEL) 13447 Glucose 2345-7 94 mg/dL 020 [facility] [address] [place] [address] CHEM 14 (METABOLIC PANEL) 84176 BUN 3094-0 21 mg/dL 020 [facility] [address] [place] [address] CHEM 14 (METABOLIC PANEL) 14130 Creatinine 2160-0 0.8 mg/dL 020 [facility] [address] [place] [address] CHEM 14 (METABOLIC PANEL) 32765 BUN/Creat Ratio 3097-3 26.1 020 [facility] [address] [place] [address] CHEM 14 (METABOLIC PANEL) 65796 GFR Estimated 30877-1 81 mL/min/1. 73m2 020 [facility] [address] [place] [address] CHEM 14 (METABOLIC PANEL) 17598 GFR Estimated for Americans 30926-7 98 mL/min/1. 73m2 020 [facility] [address] [place] [address] CHEM 14 (METABOLIC PANEL) 83659 Sodium 2951-2 141 mmol/L 020 [facility] [address] [place] [address] CHEM 14 (METABOLIC PANEL) 34617 Potassium 2823-3 4.4 mmol/L [facility] [address] [place] [address] CHEM 14 (METABOLIC PANEL) 23183 Chloride 2075-0 108 mmol/L [facility] [address] [place] [address] CHEM 14 (METABOLIC PANEL) 04777 Total CO2 2028-9 25 mmol/L [facility] [address] [place] [address] CHEM 14 (METABOLIC PANEL) 61009 Anion Gap 1863-0 12.4 mEq/L [facility] [address] [place] [address] CHEM 14 (METABOLIC PANEL) 04304 Calculated Serum Osmolality 82030-2 295 mOsm/kg 020 [facility] [address] [place] [address]160 CHEM 14 (METABOLIC PANEL) 83845 Albumin 69307-4 3.8 g/dL [facility] [address] [place] [address] CHEM 14 (METABOLIC PANEL) 67532 Total Protein 2885-2 7.1 g/dL [facility] [address] [place] [address] CHEM 14 (METABOLIC PANEL) 25729 Globulin 2336-6 3.3 g/dL 020 [facility] [address] [place] [address]80 CHEM 14 (METABOLIC PANEL) 75032 Albumin/Globulin Ratio 1759-0 1.2 [facility] [address] [place] [address] 21941 CHEM 14 (METABOLIC PANEL) 49104 ALK PHOS 6768-6 77.00 U/L [facility] [address] [place] [address] CHEM 14 (METABOLIC PANEL) 98162 SGOT/AST 1920-8 9 U/L [facility] [address] [place] [address] CHEM 14 (METABOLIC PANEL) 96183 SGPT/ALT 1743-4 22 U/L [facility] [address] [place] [address] 99336 CHEM 14 (METABOLIC PANEL) 49163 Total Bilirubin 1975-2 0.3 mg/dL 020 [facility] [address] [place] [address] CHEM 14 (METABOLIC PANEL) 21407 Calcium 10353-4 9.2 mg/dL 020 [facility] [address] [place] [address] CHEM 14 (METABOLIC PANEL) 13131 Corrected Calcium 63428-5 9.5 mg/dL 06/13 020 [facility] [address] [place] [address] VITAMIN D 97237 Vitamin D 88041-6 37.1 ng/mL 020 [facility] [address] [place] [address] HDL - CHOL 55254 HDL 2085-9 37 mg/dL 020 [facility] [address] [place] [address] HDL - CHOL 24324 CHD 38582-0 23 % 020 [facility] [address] [place] [address] Procedures Procedure Codes Date Glucose Blood Test CPT-4: 55130 06/11/2020 FLUCELVAX PFS VAC NO PRSV 0.5 ML IM CPT-4: 56032 06/11/2020 Admin flu virus vaccine CPT-4: G0008 06/11/20 20 Electrocardiogram CPT-4: 37682 05/14/2020 Tobacco Assessment/Screening CPT-4: TCA Fall Risk Assessment SNOMED CT: 28517323 4 CPT-4: DFRA 01/01/2020 Functional Assessment CPT-4: DFA 01/01/2020 [place] Assessment CPT-4: DSWA 11/04 Patient Health Questionnaire CPT-4: DPHQ [place] Fany Assessment CPT-4: DSWA 10/03 Hypertension CPT-4: HTN 10/17/2019 Fall Risk Assessment SNOMED CT: 15258885 4 CPT-4: DFRA 09/19/2019 Functional Assessment CPT-4: DFA 09/19/2019 Urinalysis, dip stick CPT-4: 27376 06/21/2019 Tobacco Assessment/Screening CPT-4: TCA Patient Health Questionnaire CPT-4: DPHQ AHA/REBECCA Classification Assessment CPT-4: DAHA 04/25/2019 Controlled Substance Report CPT-4: CTRSU 04/03 Urinalysis, dip stick CPT-4: 18439 03/28/2019 Urinalysis, dip stick CPT-4: 52744 03/28/2019 F7H-Acmjldnoaarzqnq CPT-4: 35585 Unknown V1B-Pcotmficomwfiye CPT-4: 60270 Unknown E1U-Krbefvwbpeomwuu CPT-4: 96631 Unknown Z5F-Imqbtqupajdbmic CPT-4: 43535 Unknown Gynecology Referral SNOMED CT: 712302081 CPT-4: R14 Unknown Vital Signs Date Vital 06/11/2020 Blood Pressure 1: 116/68 Code: 8480-6 BMI: 55.1 Code: 98771-9 Heart Rate 1: 90 bpm Height: 4'11 Code: 8302-2 Random Blood Sugar: 127/NaN Respiratory Rate: 16 bpm SpO2: 98% Temperature: 36.5 (C) / 97.7 (F) Weight: 273 lbs Code: 00915-3 Reason For Visit Reason For Visit Effective Dates Notes hypertension 06/11/2020 diabetes mellitus 06/11/2020 mole check 06/11/2020 Interim health update 06/11/2020 Encounters Encounter Performer Location Location Address Codes Magdi e HOME VISIT EST PATIENT Diagnosis: Hypertensive heart disease with heart failure[ICD10: I11.0] Diagnosis: Chronic kidney disease, unspecified[ICD10: N18.9] Diagnosis: Type 2 diabetes mellitus with peripheral neuropathy[ICD10: E11.42] Diagnosis: Hyperlipidemia, unspecified[ICD10: E78.5] Diagnosis: Hypothyroidism, unspecified[ICD10: E03.9] Diagnosis: Encounter for immunization[ICD10: Z23] Diagnosis: (Z12.4-V76.2) Encounter for screening for malignant neoplasm of cervix[ICD10: Z12.4] Anna Culver [place] [facility] [id number] [place] [address] [place], [place] [id number] CPT-4: 07507 06/11/2020 Plan of Care Planned Activity Notes Codes Status Date Visit Plan: M25.531-719.43 Right wrist pain patient complaining of chronic pain to right wrist, denies known injury-routine follow up with Dr Watson-orthopedics quit outpatient PT as didn't feel it was helpful MRI with contrast pending E11.42-250.60 Type 2 diabetes mellitus with peripheral neuropathy testing daily, at varied times range 109-135, patient reports feeling symptomatic for BS <100, will add second testing PRN for symptoms 04/14/2020 hemoglobin 5.6 10/17/2019 Hemoglobin A1C 6.0 07/04/2019 Hgb A1C 5.6 10/17/2019 Inocente Soares 04/11-instructed on good daily foot care routine follow up with Dr. Gonzales, podiatry-diabetic shoe received ophthalmology confirms visit, but doesn't remember when 01/01/2020 FRA complete denies fall 01/01/2020 Functional Assessment complete labs drawn, results pending I10-401.9 Essential (primary) hypertension I11.0-402.91 Hypertensive heart disease with heart failure BP noted good for age cont hctz and lisinipril 10/17/2019 HTN assessment, encourage lifestyle modifications, exercise, weight loss, and limiting fried and greasy foods, 04/14/2020 GFR 110, Mg 2.3, Phosphorus 2.9 all numbers WNL 10/17/2019 GFR 90 05/14/2020 EKG NSR 05/14/2020 OVN SpO2 <88% greater than 7 minutes lab ordered, results pending N18.9-585.9 Chronic kidney disease, unspecified avoid nephro toxic drugs, 04/17/2020 GFR >100, renal function remains stable Patient denies ability to drink water stating that it dehydrates her-doesn't know diagnosis, but indicates she was told this by previous urologist routine urology follow up labs ordered, resuts pending G47.33-327.23 Obstructive sleep apnea (adult) (pediatric) J45.909-493.90 Asthma continue inhalers nebulizer Dr. Garcia, pulmonology F43.23-309.28 Adjustment disorder with mixed anxiety and depressed mood routine follow up [facility] labs ordered results pending E03.9-244.9 Hypothyroidism, unspecified cont levothyroxine labs pending, results pending E78.5-272.4 Hyperlipidemia, unspecified continue atorvastatin avoid high fat, fried foods discussed benefits of increased activity labs drawn, results pending Z23-V04.81 Encounter for immunization 06/12/2020 influenza vaccine [...] new appt for pap in June 2020-Kathryn Him Director-reports pap negative-records requested Z01.89-V72.85 Encounter for screening [...] visit verbalized understanding of all above topics. 06/11/2020 Patient Education: Patient Medication Summary Completed 06/11/2020 Patient Education: Hypertension Completed 06/11/2020 Patient Education: Diabetes Complete d 06/11/2020 Patient Education: Obesity Completed 06/11/2020 Appointment: Anna Culver WPtel: [address] [place] [address] E452 05/14/2020 Appointment: Anna Culver WPtel: [address] [place] [address] E452 04/17/2020 Appointment: Anna Culver WPtel: [address] [place] [address] E452 03/21/2020 Appointment: Anna Culver WPtel: [address] [place] [address] E452 02/14/2020 Appointment: Anna Culver WPtel: [address] [place] [address] E452 01/24/2020 Appointment: Anna Culver WPtel: [address] [place] [address] E452 01/01/2020 Appointment: Anna Culver WPtel: [address] [place] [address] E452 11/28/2019 Appointment: Anna Culver WPtel: [address] [place] [address] E452 10/17/2019 Appointment: Anna Culver WPtel: [address] [place] [address] E452 09/19/2019 Appointment: Sudha Hernadez WPtel: [address] [facility] [place] [address] [id number] E452 07/04/2019 Appointment: Sudha Hernadez WPtel: [address] [facility] [place] [address] [id number] E452 06/21/2019 Appointment: Charlene Oropeza WPtel: [address] [facility] [place] [address] [id number] E452 05/24/2019 Appointment: Mallory Delgado E452 04/27/2019 Appointment: Charlene Oropeza WPtel: [address] [facility] [place] [address] [id number] E452 04/25/2019 Appointment: Rasta Palafox WPtel: [address] [facility] [place] [address] [id number] E452 03/28/2019 Appointment: Rasta Palafox WPtel: [address] [place] [address] [id number] E452 02/14/2019 Appointment: Rasta Palafox WPtel: [address] [facility] [place] [address] [id number] E452 01/31/2019 Appointment: Rasta Palafox WPtel: [address] [facility] [address] [id number] E420 12/27/2018 Referral: Pending Gynecology Referral Information Referral Processed Referral: Pending Pulmonolog y Referral Information Referral Processed Referral: Pending Psychiatry Referral Information Referral Initiated Referral: Pending Respirator y Services Referral Information Referral Initiated Referral: Pending Ophthalmology Referral Information Referral Initiated Referral: [facility] WPtel: [address] [facility] [address] Assistant Vice President placed a call out to the patient to notify her that it has been recommended that she be seen by a urologist. Patient agreed to be seen, does not have a provider of choice and no transportation issues. Assistant Vice President faxed referral and clinical notes to [facility] in [place], [place] near the patient's home. [...] seen and prefers a provider in the [place] or [place] area. Assistant Vice President placed a call out to everyone listed in the area and the only location that was able to accept the patient's insurance was [address] [address] and spoke with Maylin. Maylin asked that the patient's referral, face sheet and visit notes be faxed to . Assistant Vice President faxed over requested documents. Patient appointment confirmation letter generated and mailed to her home address. Patient to call to schedule an appointment. Processed Referral: [facility] WPtel: [address] [facility] [address] [id number] Patient notified that it has been advised that she be seen by Neurology. Patient agreed to be seen and prefers to be seen by a provider in the [place], [place] area. Patient denies any concerns with transportation, and prefers to schedule her own appointment. Assistant Vice President [facility] [...] with patient . M25.536-719.43 Right wrist pain patient complaining of chronic pain to right wrist, denies known injury-routine follow up with Dr Watson-orthopedics quit outpatient PT as didn't feel it was helpful MRI with contrast pending E11.42-250.60 Type 2 diabetes mellitus with peripheral neuropathy testing daily, at varied times range 109-135, patient reports feeling symptomatic for BS <100, will add second testing PRN for symptoms 04/14/2020 hemoglobin 5.6; 10/17/2019 Hemoglobin A1C 6.0; 07/04/2019 Hgb A1C 5.6 10/17/2019 [place] Fany 710-instructed on good daily foot care routine follow up with Dr. Gonzales, podiatry-diabetic shoe received ophthalmology confirms visit, but doesn't remember when 01/01/2020 FRA complete denies fall 01/01/2020 Functional Assessment complete labs drawn, results pending I10-401.9 Essential (primary) hypertension I11.0-402.91 Hypertensive heart disease with heart failure BP noted good for age cont hctz and lisinipril 10/17/2019 HTN assessment, encourage lifestyle modifications, exercise, weight loss, and limiting fried and greasy foods, 04/14/2020 GFR 110, Mg 2.3, Phosphorus 2.9 all numbers WNL; 10/17/2019 GFR 90 05/14/2020 EKG NSR 05/14/2020 OVN SpO2 <88% greater than 7 minutes lab ordered, results pending N18.9-585.9 Chronic kidney disease, unspecified avoid nephro toxic drugs, 04/17/2020 GFR >100, renal function remains stable; Patient denies ability to drink water stating that it dehydrates her-doesn't know diagnosis, but indicates she was told this by previous urologist routine urology follow up labs ordered, resuts pending G47.33-327.23 Obstructive sleep apnea (adult) (pediatric); J45.909-493.90 Asthma continue inhalers nebulizer Dr. Garcia, pulmonology F43.23-309.28 Adjustment disorder with mixed anxiety and depressed mood routine follow up [facility] labs ordered results pending E03.9-244.9 Hypothyroidism, unspecified cont levothyroxine labs pending, results pending E78.5-272.4 Hyperlipidemia, unspecified continue atorvastatin avoid high fat, fried foods discussed benefits of increased activity labs drawn, results pending Z23-V04.81 Encounter for immunization 06/12/2020 influenza vaccine [...] new appt for pap in June 2020-[facility] Director-reports pap negative-records requested Z01.89-V72.85 Encounter for screening [...] visit verbalized understanding of all above topics. 06/11/2020 Medical Equipment No Medical Equipment data Advance Directives No Advance Directive data
--- OUTSIDE RECORDS SUMMARY | 2023-12-07 02:12 | XMS_ITS | CCD ---
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 Name Role Phone Palomo KING, Anna Primary Care Provider Unav ailable Unavailable Chronic Care Management Unavaila ble Summary Purpose DataExchange Insurance Providers Payer name Policy type / Coverage type Covered libertarian ID Effective Begin Date Effective End Date SUKI BUTTS MARIA ESTHER [id number] Unknown Unknown Family history Mother Diagnosis Age [...] Unknown Disability 05/31/[address]: 724535919 Has never s moked or chewed tobacco 05/31/[address]: 707452689 Never drinks alco hol 05/31/2018 Has the [...] use ICD-10: Z01.89 ICD-9: V72.85 01/01/2020 Active [place] [facility] ICD-10: H10.029 ICD-9: 372.03 12/29/2019 Active [...] 04/27/2019 Active Other senior living (current) dr ug [...] Headache ICD-10: R51 ICD-9: 784.0 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/2018 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 non-steroidal anti-inflammatories (NSAID) ICD-10: Z79.1 ICD-9: V58.64 06/13/2018 Active Medications Medication Codes Instructions Start Date Stop Date Status Fill Instructions loperamide 2 mg tablet RxNorm: 769872 1 Tablet(s) Oral as needed take one tablet after each loose stool, maximum of 8 tablets in 24 hours 06/24/20 20 2021 Inactive Sudafed 12 Hour 120 mg tablet,extended release RxNorm: 0149145 TAKE 1 TABLET BY MOUTH EVERY 12 HOURS NEEDED 06/11/20 20 2019 Inactive hydrochlorothiazide 25 mg tablet RxNorm: 135344 TAKE (1) TABLET BY MOUTH EVERY DAY 06/11/20 20 2019 Inactive omeprazole 20 mg capsule,delayed release RxNorm: 770567 TAKE 1 CAPSULE BY MOUTH EVERY DAY 05/14/20 20 2020 Inactive metformin 500 mg tablet RxNorm: 991442 1 Tablet(s) Oral every day 05/12/20 20 2019 Inactive True Metrix Glucose Test Strip RxNorm: 1 Test Strips Miscellaneous two times a day as needed 04/17/20 No Stop Date Active metformin 500 mg tablet RxNorm: 678980 1 Tablet(s) Oral every day 04/17/20 20 2019 Inactive diclofenac sodium 75 mg tablet,delayed release RxNorm: 131491 1 Tablet(s) PO BID 04/14/20 20 2021 Inactive This refill negates all other refills of this medication Sudafed 12 Hour 120 mg tablet,extended release RxNorm: 9740165 TAKE 1 TABLET BY MOUTH EVERY 12 HOURS NEEDED 03/14/20 20 2019 Inactive True Metrix Glucose Test Strip RxNorm: 1 Test Strips Miscellaneous every morning 03/13/20 20 2019 Inactive 100/container True Metrix Glucose Test Strip RxNorm: 1 Test Strips Miscellaneous QA 02/22/20 20 2019 Inactive 100/container loperamide 2 mg tablet RxNorm: 600104 1 Tablet(s) Oral as needed take one tablet after each loose stool, maximum of 8 tablets in 24 hours 02/22/20 20 2019 Inactive cetirizine 10 mg tablet RxNorm: 9632342 1 Tablet(s) PO daily 01/17/20 20 2019 Inactive levothyroxine 50 mcg tablet RxNorm: 254380 1 Tablet(s) PO daily 01/17/20 20 2020 Inactive gabapentin 300 mg capsule RxNorm: 150019 1 Capsule(s) PO TID 01/17/20 20 2019 Inactive loperamide 2 mg tablet RxNorm: 505188 1 Tablet(s) Oral as needed take one tablet after each loose stool, maximum of 8 tablets in 24 hours 01/17/20 20 2019 Inactive quetiapine 100 mg tablet RxNorm: 245947 1 Tablet(s) Oral every night at bedtime 01/17/20 20 2019 Inactive lisinopril 2.5 mg tablet RxNorm: 154318 1 Tablet(s) PO daily 01/15/20 20 2020 Inactive Singulair 10 mg tablet RxNorm: 338854 1 Tablet(s) PO daily 01/15/20 20 2020 Inactive levothyroxine 50 mcg tablet RxNorm: 947521 1 Tablet(s) PO daily 01/15/20 20 2019 Inactive gabapentin 300 mg capsule RxNorm: 550949 1 Capsule(s) PO TID 01/15/20 20 2019 Inactive cetirizine 10 mg tablet RxNorm: 3738443 1 Tablet(s) PO daily 01/15/20 20 2019 Inactive gentamicin 0.3 % eye drops RxNorm: 966720 1 Drop(s) ophthalmic (eye) four times a day 12/29/19 20 2019 Inactive gentamicin 0.3 % eye drops RxNorm: 953908 1 Drop(s) ophthalmic (eye) four times a day 12/29/19 20 2019 Inactive gentamicin 0.3 % eye drops RxNorm: 170845 1 Drop(s) ophthalmic (eye) four times a day 12/29/19 20 2019 Inactive hydrochlorothiazide 25 mg tablet RxNorm: 006756 1 Tablet(s) Oral every day 12/21/19 20 2019 Inactive Sudafed 12 Hour 120 mg tablet,extended release RxNorm: 1191074 TAKE (1) TABLET BY MOUTH EVERY 12 HOURS NEEDED 12/21/19 20 2019 Inactive loperamide 2 mg tablet RxNorm: 335159 1 Tablet(s) Oral as needed take one tablet after each loose stool, maximum of 8 tablets in 24 hours 12/11/19 20 2019 Inactive loperamide 2 mg tablet RxNorm: 334290 1 Tablet(s) Oral as needed take one tablet after each loose stool, maximum of 8 tablets in 24 hours 12/11/19 20 2019 Inactive atorvastatin 40 mg tablet RxNorm: 920601 1 Tablet(s) Oral every day 11/29/19 20 2020 Inactive quetiapine 100 mg tablet RxNorm: 894441 1 Tablet(s) Oral every night at bedtime 11/28/19 20 2019 Inactive sertraline 100 mg tablet RxNorm: 785719 1 Tablet(s) Oral 11/28/19 20 2019 Inactive omeprazole 20 mg capsule,delayed release RxNorm: 383407 1 Capsule(s) Oral every day 11/20/19 20 2019 Inactive amoxicillin 250 mg capsule RxNorm: 343683 1 Capsule(s) Oral three times a day 11/07/19 20 2019 Inactive multivitamin with iron-mineral tablet RxNorm: 1 Tablet(s) Oral every day 10/29/19 20 2021 Inactive cetirizine 10 mg tablet RxNorm: 6625604 1 Tablet(s) PO daily 10/20/19 20 2019 Inactive This refill negates all other refills of this medication. Please do not auto refill Singulair 10 mg tablet RxNorm: 544745 1 Tablet(s) PO daily 10/20/19 20 2019 Inactive This refill negates all other refills of this medication gabapentin 300 mg capsule RxNorm: 245586 1 Capsule(s) PO TID 10/20/19 20 2019 Inactive lisinopril 2.5 mg tablet RxNorm: 516790 1 Tablet(s) PO daily 10/20/19 20 2019 Inactive levothyroxine 50 mcg tablet RxNorm: 084686 1 Tablet(s) PO daily 10/20/19 20 2019 Inactive This refill negates all other refills of this medication fenugreek seed extract 500 mg capsule RxNorm: 1 Capsule(s) Oral three times a day 10/17/19 20 2021 Inactive hydrochlorothiazide 25 mg tablet RxNorm: 734956 1 Tablet(s) Oral every day 10/17/19 20 2019 Inactive Alcohol Prep Pads RxNorm: 986352 1 Patch TOP QAM 10/16/192020 Inactive loperamide 2 mg tablet RxNorm: 547148 1 Tablet(s) Oral as needed take one [...] 09/19/202019 Inactive hydrochlorothiazide 25 mg tablet RxNorm: 787767 1 Tablet(s) Oral every day 09/19/202019 Inactive Sudafed 12 Hour 120 mg tablet,extended release RxNorm: 8708316 1 Tablet(s) Oral every 12 hours as needed 09/11/202018 Inactive omeprazole 20 mg capsule,delayed release RxNorm: 065651 1 Capsule(s) Oral every day 09/07/20 19 2019 Inactive Sudafed 12 Hour 120 mg tablet,extended release RxNorm: 3656285 1 Tablet(s) Oral every 12 hours as needed 09/04/20 19 2018 Inactive pantoprazole 40 mg tablet,delayed release RxNorm: 741418 1 Tablet(s) Oral every day 08/24/20 19 2018 Inactive discontinue any other H2Blkr. and PPI albuterol sulfate 2.5 mg/3 mL (0.083 %) solution for nebulization RxNorm: 759503 1 Vial Inhalation every four hours as needed as needed for dyspnea 08/17/202019 Inactive 60/box. This refill negates all other refills of this medication. Please do not fill early. Please do not auto refill. Symbicort 160 mcg-4.5 mcg/actuation HFA aerosol inhaler RxNorm: 1388934 2 Puff(s) INH BID 08/17/20 No Stop Date Active Alcohol Prep Pads RxNorm: 400490 1 Patch TOP QAM 08/17/202019 Inactive Ventolin HFA 90 mcg/actuation aerosol inhaler RxNorm: 414193 2 Puff(s) INH QID 08/09/202019 Inactive Please do not fill early. Please do not auto refill. This refill negates all other refills of this medication True Metrix Glucose Test Strip RxNorm: 1 Test Strips Miscellaneous QAM 08/09/20 19 2019 Inactive 100/container atorvastatin 40 mg tablet RxNorm: 459192 1 Tablet(s) Oral every day 07/04/20 19 2019 Inactive levmetamfetamine 50 mg nasal inhaler RxNorm: 1 Unit(s) NASAL Q3-4H Do not use more than every 3 hours or 8 times/24hours 06/26/20 19 2021 Inactive Please do not auto refill. This refill negates all other refills of this medication buspirone 7.5 mg tablet RxNorm: 929246 1 Tablet(s) PO BID 06/26/20 19 2020 Inactive This refill negates all other refills of this medication hydrochlorothiazide 12.5 mg tablet RxNorm: 870244 1 Tablet(s) PO QAM 06/26/20 19 2019 Inactive Ventolin HFA 90 mcg/actuation aerosol inhaler RxNorm: 854377 2 Puff(s) INH QID 06/26/20 19 2018 Inactive Please do not fill early. Please do not auto refill. This refill negates all other refills of this medication Singulair 10 mg tablet RxNorm: 552946 1 Tablet(s) PO daily 06/26/20 19 2019 Inactive This refill negates all other refills of this medication cetirizine 10 mg tablet RxNorm: 2128952 1 Tablet(s) PO daily 06/26/20 19 2019 Inactive This refill negates all other refills of this medication. Please do not auto refill levothyroxine 50 mcg tablet RxNorm: 579172 1 Tablet(s) PO daily 06/26/20 19 2019 Inactive This refill negates all other refills of this medication diclofenac sodium 75 mg tablet,delayed release RxNorm: 471505 1 Tablet(s) PO BID 06/26/20 19 2019 Inactive This refill negates all other refills of this medication ranitidine 150 mg tablet RxNorm: 764673 1 Tablet(s) PO BID 06/26/20 19 2018 Inactive This refill negates all other refills of this medication Calcium 600-D3 Plus (mag-zinc) 600 mg calcium-800 unit-50 mg tablet RxNorm: 1 Tablet(s) PO daily take an additonal tablet for itching. 06/26/20 19 2018 Inactive This refill negates all other refills of this medication albuterol sulfate 2.5 mg/3 mL (0.083 %) solution for nebulization RxNorm: 338654 1 Vial INH QID 06/26/20 19 2018 Inactive 60/box. This refill negates all other refills of this medication. Please do not fill early. Please do not auto refill. lisinopril 2.5 mg tablet RxNorm: 353362 1 Tablet(s) PO daily 06/21/20 19 2019 Inactive gabapentin 300 mg capsule RxNorm: 168103 1 Capsule(s) PO TID 06/21/20 19 2019 Inactive atorvastatin 20 mg tablet RxNorm: 061304 1 Tablet(s) PO QHS 06/07/20 19 2018 Inactive This refill negates all other refills of this medication TRUEplus Lancets 30 gauge RxNorm: 1 Lancets Miscellaneous QAM 05/29/20 19 2018 Inactive 100/box gabapentin 300 mg capsule RxNorm: 068138 1 Capsule(s) PO TID 05/03/20 19 2018 Inactive Flintstones Complete (iron) 18 mg iron chewable tablet RxNorm: 1 Tablet(s) PO daily 04/04/202021 Inactive This refill negates all other refills of this medication gabapentin 300 mg capsule RxNorm: 237566 1 Capsule(s) PO TID as needed 02/01/202018 Inactive True Metrix Glucose Test Strip RxNorm: 1 Test Strips Miscellaneous QA 02/01/20 19 2018 Inactive 100/container Alcohol Prep Pads RxNorm: 583562 1 Patch TOP QA 02/01/202018 Inactive TRUEplus Lancets 30 gauge RxNorm: 1 Lancets Miscellaneous QAM 02/01/20 19 2018 Inactive 100/box lisinopril 2.5 mg tablet RxNorm: 066613 1 Tablet(s) PO daily 12/28/19 19 2018 Inactive ranitidine 150 mg tablet RxNorm: 235007 1 Tablet(s) PO BID 10/21/19 19 2018 Inactive This refill negates all other refills of this medication albuterol sulfate 2.5 mg/3 mL (0.083 %) solution for nebulization RxNorm: 272723 1 Vial INH QID 10/21/192018 Inactive 60/box. [...] this medication gabapentin 300 mg capsule RxNorm: 702567 1 Capsule(s) PO TID as needed 10/21/19 19 2018 Inactive atorvastatin 20 mg tablet RxNorm: 836294 1 Tablet(s) PO QHS 10/21/19 19 2018 Inactive This refill negates all other refills of this medication trazodone 50 mg tablet RxNorm: 151193 1 Tablet(s) PO QHS 10/21/19 19 2018 Inactive This refill negates all other refills of this medication Ventolin HFA 90 mcg/actuation aerosol inhaler RxNorm: 160436 2 Puff(s) INH QID 10/21/19 19 2018 Inactive Please do not fill early. Please do not auto refill. This refill negates all other refills of this medication Calcium 600-D3 Plus 600 mg calcium-800 unit-50 mg tablet RxNorm: 1 Tablet(s) PO daily take an additonal tablet for itching. 10/21/192018 Inactive This refill negates all other refills of this medication Singulair 10 mg tablet RxNorm: 366013 1 Tablet(s) PO daily 10/21/19 19 2018 Inactive This refill negates all other refills of this medication buspirone 7.5 mg tablet RxNorm: 184107 1 Tablet(s) PO BID 10/21/19 19 2018 Inactive This refill negates all other refills of this medication diclofenac sodium 75 mg tablet,delayed release RxNorm: 118086 1 Tablet(s) PO BID 10/21/192018 Inactive This refill negates all other refills of this medication hydrochlorothiazide 12.5 mg tablet RxNorm: 596156 1 Tablet(s) PO QAM 10/21/19 19 2018 Inactive metoprolol succinate ER 50 mg tablet,extended release 24 hr RxNorm: 079002 1 Tablet(s) PO daily 10/21/19 19 2018 Inactive This refill negates all other refills of this medication levothyroxine 50 mcg tablet RxNorm: 368472 1 Tablet(s) PO daily 10/21/19 19 2018 Inactive This refill negates all other refills of this medication cetirizine 10 mg tablet RxNorm: 1343751 1 Tablet(s) PO daily 10/21/19 19 2018 Inactive This refill negates all other refills of this medication. Please do not auto refill Flintstones Complete (iron) 18 mg iron chewable tablet RxNorm: 1 Tablet(s) PO daily 10/21/19 19 2018 Inactive This refill negates all other refills of this medication buspirone 7.5 mg tablet RxNorm: 466089 1 Tablet(s) PO BID 10/12/19 19 2018 Inactive cetirizine 10 mg tablet RxNorm: 0176384 1 Tablet(s) PO daily 09/28/20 18 2018 Inactive Guaiasorb DM 10 mg-100 mg/5 mL oral liquid RxNorm: 992490 10 Milliliter(s) PO As needed every 4 hr 09/24/20 18 2018 Inactive Vicks Vaporub 4.7 %-1.2 %-2.6 % topical ointment RxNorm: 8517913 1 Application TOP TID 09/24/20 18 2018 Inactive levmetamfetamine 50 mg nasal inhaler RxNorm: 1 Unit(s) NASAL Q3-4H 09/24/20 18 2017 Inactive sertraline 50 mg tablet RxNorm: 869596 1 Tablet(s) PO daily 09/09/20 18 2018 Inactive Please note dose trazodone 50 mg tablet RxNorm: 793635 1 Tablet(s) PO QHS 09/06/20 18 2018 Inactive sertraline 50 mg tablet RxNorm: 518146 1 Tablet(s) PO daily 09/06/20 18 2017 Inactive amoxicillin 500 mg tablet RxNorm: 886006 1 Tablet(s) PO Q12H 08/31/20 18 2017 Inactive albuterol sulfate 2.5 mg/3 mL (0.083 %) solution for nebulization RxNorm: 609280 1 Vial INH QID 08/10/20 18 2018 Inactive 60/box. Please do not fill early. Please do not auto refill. Prozac 10 mg capsule RxNorm: 700096 1 Capsule(s) PO daily 08/09/20 18 2017 Inactive buspirone 7.5 mg tablet RxNorm: 119580 1 Tablet(s) PO BID 08/09/20 18 2018 Inactive gabapentin 300 mg capsule RxNorm: 309869 1 Capsule(s) PO TID as needed 08/01/20 18 2018 Inactive hydrochlorothiazide 12.5 mg tablet RxNorm: 742444 1 Tablet(s) PO QAM 08/01/20 18 2018 Inactive ranitidine 150 mg tablet RxNorm: 957600 1 Tablet(s) PO BID 08/01/20 18 2018 Inactive Macrobid 100 mg capsule RxNorm: 842815 1 Capsule(s) PO Q12H 06/21/20 18 2017 Inactive Singulair 10 mg tablet RxNorm: 016305 1 Tablet(s) PO daily 06/14/20 18 2018 Inactive Ventolin HFA 90 mcg/actuation aerosol inhaler RxNorm: 0459213 2 Puff(s) INH QID 06/14/20 18 2018 Inactive Singulair 10 mg tablet RxNorm: 168434 1 Tablet(s) PO daily 06/14/20 18 2017 Inactive buspirone 7.5 mg tablet RxNorm: 323364 1 Tablet(s) PO BID 06/14/20 18 2017 Inactive Prozac 10 mg capsule RxNorm: 725511 1 Capsule(s) PO daily 06/14/20 18 2017 Inactive Neilmed Pediatric Sinus Rinse Refill packet RxNorm: 1 Unit Dose NASAL PRN 05/31/20 18 2021 Inactive diclofenac sodium 75 mg tablet,delayed release RxNorm: 818016 1 Tablet(s) PO BID 05/31/20 18 2017 Inactive lisinopril 2.5 mg tablet RxNorm: 228616 1 Tablet(s) PO daily 05/31/20 18 2017 Inactive metoprolol succinate ER 50 mg tablet,extended release 24 hr RxNorm: 563664 1 Tablet(s) PO daily 05/31/20 18 2017 Inactive levothyroxine 50 mcg tablet RxNorm: 944917 1 Tablet(s) PO daily 05/31/20 18 2017 Inactive TRUEplus Lancets 30 gauge RxNorm: 1 Lancets Miscellaneous QAM 05/31/20 18 2017 Inactive 100/box Ventolin HFA 90 mcg/actuation aerosol inhaler RxNorm: 534656 2 Puff(s) INH QID 05/31/20 18 2017 Inactive Aleve 220 mg capsule RxNorm: 4390295 1 Capsule(s) PO BID 05/31/20 18 2018 Inactive ranitidine 150 mg tablet RxNorm: 608147 1 Tablet(s) PO BID 05/31/20 18 2017 Inactive gabapentin 300 mg capsule RxNorm: 204162 1 Capsule(s) PO TID as needed 05/31/20 18 2017 Inactive atorvastatin 20 mg tablet RxNorm: 324870 1 Tablet(s) PO QHS 05/31/20 18 2017 Inactive True Metrix Glucose Test Strip RxNorm: 1 Test Strips Miscellaneous QA 05/31/20 18 2017 Inactive 50/container Calcium 600-D3 Plus 600 mg calcium-800 unit-50 mg tablet RxNorm: 1 Tablet(s) PO daily take an additonal tablet for itching. 05/31/20 18 2017 Inactive hydrochlorothiazide 12.5 mg tablet RxNorm: 448099 1 Tablet(s) PO QAM 05/31/20 18 2017 Inactive Flintstones Complete (iron) 18 mg iron chewable tablet RxNorm: 1 Tablet(s) PO daily 05/31/20 18 2017 Inactive d-mannose oral powder RxNorm: PO 18 2021 Inactive True Metrix Glucose Meter RxNorm: miscellaneous 08/17/20 19 2018 Inactive sertraline 50 mg tablet RxNorm: 748866 1 Tablet(s) PO daily 11/28/19 20 2019 Inactive loperamide 2 mg tablet RxNorm: 753347 oral 09/29/20 19 2018 Inactive Symbicort 160 mcg-4.5 mcg/actuation HFA aerosol inhaler RxNorm: 6524819 2 Puff(s) INH BID 08/17/20 19 2018 Inactive Medication Administered No Medication Administered data Procedures Procedure Codes Date Electrocardiogram CPT-4: 44840 05/14/2020 Tobacco Assessment/Screening CPT-4: TCA Fall Risk Assessment SNOMED CT: 23305151 4 CPT-4: DFRA 01/01/2020 Functional Assessment CPT-4: DFA 01/01/2020 [place] Assessment CPT-4: DSWA 11/04 Patient Health Questionnaire CPT-4: DPHQ [place] Assessment CPT-4: DSWA 10/03 Hypertension CPT-4: HTN 10/17/2019 Fall Risk Assessment SNOMED CT: 92461184 4 CPT-4: DFRA 09/19/2019 Functional Assessment CPT-4: DFA 09/19/2019 Urinalysis, dip stick CPT-4: 50413 06/21/2019 Tobacco Assessment/Screening CPT-4: TCA Patient Health Questionnaire CPT-4: DPHQ AHA/REBECCA Classification Assessment CPT-4: DAHA 04/25/2019 Controlled Substance Report CPT-4: CTRSU 04/03 Urinalysis, dip stick CPT-4: 63675 03/28/2019 Urinalysis, dip stick CPT-4: 37040 03/28/2019 [id number] CPT-4: 31445 Unknown [id number] CPT-4: 81764 Unknown [id number] CPT-4: 48838 Unknown [id number] CPT-4: 83840 Unknown Gynecology Referral SNOMED CT: 705854808 CPT-4: R14 Unknown Reason For Visit No Reason For Visit data Plan of Care Planned Activity Notes Codes Status Date Referral: Pending Gynecology Referral Information Referral Processed Referral: Pending Pulmonolog y Referral Information Referral Processed Referral: Pending Psychiatry Referral Information Referral Initiated Referral: Pending Respirator y Services Referral Information Referral Initiated Referral: Pending Ophthalmol ogy Referral Information Referral Initiated Referral: [facility] WPtel: [place] [address] [place] [employer] placed a call out to the patient to notify her that it has been recommended that she be seen by a urologist. Patient agreed to be seen, does not have a provider of choice and no transportation issues. [employer] faxed referral and clinical notes to [facility] in [place], [place] near the patient's home. Patient to [...] seen and prefers a provider in the [place] or [place] area. [employer] placed a call out to everyone listed in the area and the only location that was able to accept the patient's insurance was [address] [id number] and spoke with Maylin. Maylin asked that the patient's referral, face sheet and visit notes be faxed to . [employer] faxed over requested documents. Patient appointment confirmation letter generated and mailed to her home address. Patient to call to schedule an appointment. Processed [facility] W[facility]: [address] [place], [place] [id number] Patient notified that it has been advised that she be seen by Neurology. Patient agreed to be seen and prefers to be seen by a provider in the [place], [place] area. Patient denies any concerns with transportation, and prefers to schedule her own appointment. [employer] placed a [facility] and spoke with Neeraj P: who confirmed that their office is able to accept new patients and the patient's insurance. After confirming the providers fax number, investigative writer faxed over the patient's referral, and [...]
--- OUTSIDE RECORDS SUMMARY | 2023-12-07 02:12 | XMS_ITS | CCD ---
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 Legal Transcriptionist Name Role Phone Palomo KING, Anna Primary Care Provider Unav ailable Unavailable Chronic Care Management Unavaila ble Summary Purpose DataExchange Insurance Providers Payer name Policy type / Coverage type Covered libertarian ID Effective Begin Date Effective End Date SUKI MAYO [id number] Unknown Unknown Family history Mother Diagnosis Age [...] Unknown Disability 05/31/[address]: 384876530 Has never s moked or chewed tobacco 05/31/[address]: 860363215 Never drinks alco hol 05/31/2018 Has the [...] ICD- 10: N18.9 ICD-9: 585.9 06/21/2019 Active Type 2 diabetes mellitus wit h peripheral neuropathy ICD-10: E11.42 ICD-9: 250.60 11/28/2019 Active Hypertensive heart disease w ith heart failure ICD-10: I11.0 ICD-9: 402.91 04/25/2019 Active Adult BMI 50.0-59.9 kg/sq m ICD-10: [...] use ICD-10: Z01.89 ICD-9: V72.85 01/01/2020 Active 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 ICD-9: 372.03 12/29/2019 Active [...] ICD-10: UXZ.01 ICD-9: XZ0.1 04/27/2019 Active 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 ICD-10: Z79.899 ICD-9: [...] Headache ICD-10: R51 ICD-9: 784.0 10/03/2018 Active correction (current) use of non-steroidal anti-inflammatories (NSAID) ICD-10: Z79.1 ICD-9: V58.64 06/13/2018 Active Medications Medication Codes Instructions Start Date Stop Date Status Fill Instructions metformin 500 mg tablet RxNorm: 884729 1 Tablet(s) Oral every day 05/12/20 20 2019 Inactive True Metrix Glucose Test Strip RxNorm: 1 Test Strips Miscellaneous two times a day as needed 04/17/20 No Stop Date Active metformin 500 mg tablet RxNorm: 429681 1 Tablet(s) Oral every day 04/17/20 20 2019 Inactive diclofenac sodium 75 mg tablet,delayed release RxNorm: 658690 1 Tablet(s) PO BID 04/14/20 20 2021 Inactive This refill negates all other refills of this medication Sudafed 12 Hour 120 mg tablet,extended release RxNorm: 8882896 TAKE 1 TABLET BY MOUTH EVERY 12 HOURS NEEDED 03/14/20 20 2019 Inactive True Metrix Glucose Test Strip RxNorm: 1 Test Strips Miscellaneous every morning 03/13/20 20 2019 Inactive 100/container loperamide 2 mg tablet RxNorm: 687604 1 Tablet(s) Oral as needed take one tablet after each loose stool, maximum of 8 tablets in 24 hours 02/22/20 20 2019 Inactive True Metrix Glucose Test Strip RxNorm: 1 Test Strips Miscellaneous QAM 02/22/20 20 2019 Inactive 100/container cetirizine 10 mg tablet RxNorm: 0770378 1 Tablet(s) PO daily 01/17/20 20 2019 Inactive levothyroxine 50 mcg tablet RxNorm: 994966 1 Tablet(s) PO daily 01/17/20 20 2020 Inactive gabapentin 300 mg capsule RxNorm: 357673 1 Capsule(s) PO TID 01/17/20 20 2019 Inactive loperamide 2 mg tablet RxNorm: 546873 1 Tablet(s) Oral as needed take one tablet after each loose stool, maximum of 8 tablets in 24 hours 01/17/20 20 2019 Inactive quetiapine 100 mg tablet RxNorm: 816394 1 Tablet(s) Oral every night at bedtime 01/17/20 20 2019 Inactive lisinopril 2.5 mg tablet RxNorm: 682291 1 Tablet(s) PO daily 01/15/20 20 2020 Inactive Singulair 10 mg tablet RxNorm: 013459 1 Tablet(s) PO daily 01/15/20 20 2020 Inactive levothyroxine 50 mcg tablet RxNorm: 407981 1 Tablet(s) PO daily 01/15/20 20 2019 Inactive gabapentin 300 mg capsule RxNorm: 714530 1 Capsule(s) PO TID 01/15/20 20 2019 Inactive cetirizine 10 mg tablet RxNorm: 7338144 1 Tablet(s) PO daily 01/15/20 20 2019 Inactive gentamicin 0.3 % eye drops RxNorm: 647729 1 Drop(s) ophthalmic (eye) four times a day 12/29/19 20 2019 Inactive gentamicin 0.3 % eye drops RxNorm: 911765 1 Drop(s) ophthalmic (eye) four times a day 12/29/19 20 2019 Inactive gentamicin 0.3 % eye drops RxNorm: 465863 1 Drop(s) ophthalmic (eye) four times a day 12/29/19 20 2019 Inactive hydrochlorothiazide 25 mg tablet RxNorm: 640018 1 Tablet(s) Oral every day 12/21/19 20 2019 Inactive Sudafed 12 Hour 120 mg tablet,extended release RxNorm: 6672013 TAKE (1) TABLET BY MOUTH EVERY 12 HOURS NEEDED 12/21/19 20 2019 Inactive loperamide 2 mg tablet RxNorm: 794632 1 Tablet(s) Oral as needed take one tablet after each loose stool, maximum of 8 tablets in 24 hours 12/11/19 20 2019 Inactive loperamide 2 mg tablet RxNorm: 148042 1 Tablet(s) Oral as needed take one tablet after each loose stool, maximum of 8 tablets in 24 hours 12/11/19 20 2019 Inactive atorvastatin 40 mg tablet RxNorm: 767084 1 Tablet(s) Oral every day 11/29/19 20 2020 Inactive sertraline 100 mg tablet RxNorm: 716160 1 Tablet(s) Oral 11/28/19 20 2019 Inactive quetiapine 100 mg tablet RxNorm: 457503 1 Tablet(s) Oral every night at bedtime 11/28/19 20 2019 Inactive omeprazole 20 mg capsule,delayed release RxNorm: 718765 1 Capsule(s) Oral every day 11/20/19 20 2019 Inactive amoxicillin 250 mg capsule RxNorm: 949557 1 Capsule(s) Oral three times a day 11/07/19 20 2019 Inactive multivitamin with iron-mineral tablet RxNorm: 1 Tablet(s) Oral every day 10/29/19 20 2021 Inactive cetirizine 10 mg tablet RxNorm: 8405179 1 Tablet(s) PO daily 10/20/19 20 2019 Inactive This refill negates all other refills of this medication. Please do not auto refill Singulair 10 mg tablet RxNorm: 033240 1 Tablet(s) PO daily 10/20/19 20 2019 Inactive This refill negates all other refills of this medication gabapentin 300 mg capsule RxNorm: 295532 1 Capsule(s) PO TID 10/20/19 20 2019 Inactive lisinopril 2.5 mg tablet RxNorm: 880960 1 Tablet(s) PO daily 10/20/19 20 2019 Inactive levothyroxine 50 mcg tablet RxNorm: 206881 1 Tablet(s) PO daily 10/20/192019 Inactive This refill negates all other refills of this medication fenugreek seed extract 500 mg capsule RxNorm: 1 Capsule(s) Oral three times a day 10/17/19 20 2021 Inactive hydrochlorothiazide 25 mg tablet RxNorm: 288695 1 Tablet(s) Oral every day 10/17/19 20 2019 Inactive Alcohol Prep Pads RxNorm: 498961 1 Patch TOP QAM 10/16/19 20 2020 Inactive loperamide 2 mg tablet RxNorm: 722889 1 Tablet(s) Oral as needed take one [...] 2019 Inactive hydrochlorothiazide 25 mg tablet RxNorm: 245844 1 Tablet(s) Oral every day 09/19/202019 Inactive Sudafed 12 Hour 120 mg tablet,extended release RxNorm: 9796004 1 Tablet(s) Oral every 12 hours as needed 09/11/20 19 2018 Inactive omeprazole 20 mg capsule,delayed release RxNorm: 444916 1 Capsule(s) Oral every day 09/07/20 19 2019 Inactive Sudafed 12 Hour 120 mg tablet,extended release RxNorm: 7464448 1 Tablet(s) Oral every 12 hours as needed 09/04/20 19 2018 Inactive pantoprazole 40 mg tablet,delayed release RxNorm: 833490 1 Tablet(s) Oral every day 08/24/202018 Inactive discontinue any other H2Blkr. and PPI albuterol sulfate 2.5 mg/3 mL (0.083 %) solution for nebulization RxNorm: 450881 1 Vial Inhalation every four hours as needed as needed for dyspnea 08/17/202019 Inactive 60/box. This refill negates all other refills of this medication. Please do not fill early. Please do not auto refill. Symbicort 160 mcg-4.5 mcg/actuation HFA aerosol inhaler RxNorm: 6958965 2 Puff(s) INH BID 08/17/20 No Stop Date Active Alcohol Prep Pads RxNorm: 185780 1 Patch TOP QAM 08/17/20 19 2019 Inactive Ventolin HFA 90 mcg/actuation aerosol inhaler RxNorm: 053685 2 Puff(s) INH QID 08/09/20 19 2019 Inactive Please do not fill early. Please do not auto refill. This refill negates all other refills of this medication True Metrix Glucose Test Strip RxNorm: 1 Test Strips Miscellaneous QAM 08/09/20 19 2019 Inactive 100/container atorvastatin 40 mg tablet RxNorm: 578708 1 Tablet(s) Oral every day 07/04/20 19 2019 Inactive levmetamfetamine 50 mg nasal inhaler RxNorm: 1 Unit(s) NASAL Q3-4H Do not use more than every 3 hours or 8 times/24hours 06/26/20 19 2021 Inactive Please do not auto refill. This refill negates all other refills of this medication buspirone 7.5 mg tablet RxNorm: 550584 1 Tablet(s) PO BID 06/26/20 19 2020 Inactive This refill negates all other refills of this medication hydrochlorothiazide 12.5 mg tablet RxNorm: 778327 1 Tablet(s) PO QAM 06/26/20 19 2019 Inactive Ventolin HFA 90 mcg/actuation aerosol inhaler RxNorm: 095078 2 Puff(s) INH QID 06/26/20 19 2018 Inactive Please do not fill early. Please do not auto refill. This refill negates all other refills of this medication Singulair 10 mg tablet RxNorm: 074297 1 Tablet(s) PO daily 06/26/20 19 2019 Inactive This refill negates all other refills of this medication cetirizine 10 mg tablet RxNorm: 5957728 1 Tablet(s) PO daily 06/26/20 19 2019 Inactive This refill negates all other refills of this medication. Please do not auto refill levothyroxine 50 mcg tablet RxNorm: 524304 1 Tablet(s) PO daily 06/26/20 19 2019 Inactive This refill negates all other refills of this medication diclofenac sodium 75 mg tablet,delayed release RxNorm: 668699 1 Tablet(s) PO BID 09/24/2019 Inactive This refill negates all other refills of this medication ranitidine 150 mg tablet RxNorm: 023021 1 Tablet(s) PO BID 06/26/20 19 2018 Inactive This refill negates all other refills of this medication Calcium 600-D3 Plus (mag-zinc) 600 mg calcium-800 unit-50 mg tablet RxNorm: 1 Tablet(s) PO daily take an additonal tablet for itching. 06/26/20 19 2018 Inactive This refill negates all other refills of this medication albuterol sulfate 2.5 mg/3 mL (0.083 %) solution for nebulization RxNorm: 106914 1 Vial INH QID 06/26/20 19 2018 Inactive 60/box. This refill negates all other refills of this medication. Please do not fill early. Please do not auto refill. lisinopril 2.5 mg tablet RxNorm: 002246 1 Tablet(s) PO daily 06/21/20 19 2019 Inactive gabapentin 300 mg capsule RxNorm: 719387 1 Capsule(s) PO TID 06/21/20 19 2019 Inactive atorvastatin 20 mg tablet RxNorm: 469606 1 Tablet(s) PO QHS 06/07/202018 Inactive This refill negates all other refills of this medication TRUEplus Lancets 30 gauge RxNorm: 1 Lancets Miscellaneous QAM 05/29/20 19 2018 Inactive 100/box gabapentin 300 mg capsule RxNorm: 397826 1 Capsule(s) PO TID 05/03/20 19 2018 Inactive Flnickolas Complete (iron) 18 mg iron chewable tablet RxNorm: 1 Tablet(s) PO daily 04/04/20 19 2021 Inactive This refill negates all other refills of this medication gabapentin 300 mg capsule RxNorm: 931295 1 Capsule(s) PO TID as needed 02/01/20 19 2018 Inactive True Metrix Glucose Test Strip RxNorm: 1 Test Strips Miscellaneous QAM 02/01/20 19 2018 Inactive 100/container Alcohol Prep Pads RxNorm: 229194 1 Patch TOP QAM 02/01/20 19 2018 Inactive TRUEplus Lancets 30 gauge RxNorm: 1 Lancets Miscellaneous QAM 02/01/20 19 2018 Inactive 100/box lisinopril 2.5 mg tablet RxNorm: 862000 1 Tablet(s) PO daily 12/28/19 19 2018 Inactive ranitidine 150 mg tablet RxNorm: 888534 1 Tablet(s) PO BID 10/21/192018 Inactive This refill negates all other refills of this medication albuterol sulfate 2.5 mg/3 mL (0.083 %) solution for nebulization RxNorm: 467468 1 Vial INH QID 10/21/192018 Inactive 60/box. [...] this medication gabapentin 300 mg capsule RxNorm: 745711 1 Capsule(s) PO TID as needed 10/21/19 19 2018 Inactive atorvastatin 20 mg tablet RxNorm: 119575 1 Tablet(s) PO QHS 10/21/192018 Inactive This refill negates all other refills of this medication trazodone 50 mg tablet RxNorm: 551802 1 Tablet(s) PO QHS 10/21/192018 Inactive This refill negates all other refills of this medication Ventolin HFA 90 mcg/actuation aerosol inhaler RxNorm: 529765 2 Puff(s) INH QID 10/21/192018 Inactive Please do not fill early. Please do not auto refill. This refill negates all other refills of this medication Calcium 600-D3 Plus 600 mg calcium-800 unit-50 mg tablet RxNorm: 1 Tablet(s) PO daily take an additonal tablet for itching. 10/21/192018 Inactive This refill negates all other refills of this medication Singulair 10 mg tablet RxNorm: 616671 1 Tablet(s) PO daily 10/21/192018 Inactive This refill negates all other refills of this medication buspirone 7.5 mg tablet RxNorm: 048492 1 Tablet(s) PO BID 10/21/192018 Inactive This refill negates all other refills of this medication diclofenac sodium 75 mg tablet,delayed release RxNorm: 828361 1 Tablet(s) PO BID 10/21/19 19 2018 Inactive This refill negates all other refills of this medication hydrochlorothiazide 12.5 mg tablet RxNorm: 325149 1 Tablet(s) PO QAM 10/21/19 19 2018 Inactive metoprolol succinate ER 50 mg tablet,extended release 24 hr RxNorm: 736401 1 Tablet(s) PO daily 10/21/192018 Inactive This refill negates all other refills of this medication levothyroxine 50 mcg tablet RxNorm: 827016 1 Tablet(s) PO daily 10/21/192018 Inactive This refill negates all other refills of this medication cetirizine 10 mg tablet RxNorm: 9275737 1 Tablet(s) PO daily 10/21/192018 Inactive This refill negates all other refills of this medication. Please do not auto refill Flintstones Complete (iron) 18 mg iron chewable tablet RxNorm: 1 Tablet(s) PO daily 10/21/192018 Inactive This refill negates all other refills of this medication buspirone 7.5 mg tablet RxNorm: 775651 1 Tablet(s) PO BID 10/12/192018 Inactive cetirizine 10 mg tablet RxNorm: 9257420 1 Tablet(s) PO daily 09/28/202018 Inactive Guaiasorb DM 10 mg-100 mg/5 mL oral liquid RxNorm: 550525 10 Milliliter(s) PO As needed every 4 hr 09/24/202018 Inactive Vicks Vaporub 4.7 %-1.2 %-2.6 % topical ointment RxNorm: 8653921 1 Application TOP TID 09/24/20 18 2018 Inactive levmetamfetamine 50 mg nasal inhaler RxNorm: 1 Unit(s) NASAL Q3-4H 09/24/20 18 2017 Inactive sertraline 50 mg tablet RxNorm: 529162 1 Tablet(s) PO daily 09/09/20 18 2018 Inactive Please note dose trazodone 50 mg tablet RxNorm: 667491 1 Tablet(s) PO QHS 09/06/20 18 2018 Inactive sertraline 50 mg tablet RxNorm: 063223 1 Tablet(s) PO daily 09/06/20 18 2017 Inactive amoxicillin 500 mg tablet RxNorm: 201427 1 Tablet(s) PO Q12H 08/31/20 18 2017 Inactive albuterol sulfate 2.5 mg/3 mL (0.083 %) solution for nebulization RxNorm: 990329 1 Vial INH QID 08/10/20 18 2018 Inactive 60/box. Please do not fill early. Please do not auto refill. Prozac 10 mg capsule RxNorm: 926965 1 Capsule(s) PO daily 08/09/20 18 2017 Inactive buspirone 7.5 mg tablet RxNorm: 036550 1 Tablet(s) PO BID 08/09/20 18 2018 Inactive gabapentin 300 mg capsule RxNorm: 448351 1 Capsule(s) PO TID as needed 08/01/20 18 2018 Inactive hydrochlorothiazide 12.5 mg tablet RxNorm: 854939 1 Tablet(s) PO QAM 08/01/20 18 2018 Inactive ranitidine 150 mg tablet RxNorm: 258383 1 Tablet(s) PO BID 08/01/20 18 2018 Inactive Macrobid 100 mg capsule RxNorm: 742647 1 Capsule(s) PO Q12H 06/21/20 18 2017 Inactive Singulair 10 mg tablet RxNorm: 402666 1 Tablet(s) PO daily 06/14/20 18 2018 Inactive Ventolin HFA 90 mcg/actuation aerosol inhaler RxNorm: 2030776 2 Puff(s) INH QID 06/14/20 18 2018 Inactive Singulair 10 mg tablet RxNorm: 803832 1 Tablet(s) PO daily 06/14/20 18 2017 Inactive buspirone 7.5 mg tablet RxNorm: 408859 1 Tablet(s) PO BID 06/14/20 18 2017 Inactive Prozac 10 mg capsule RxNorm: 334933 1 Capsule(s) PO daily 06/14/20 18 2017 Inactive Neilmed Pediatric Sinus Rinse Refill packet RxNorm: 1 Unit Dose NASAL PRN 05/31/20 18 2021 Inactive diclofenac sodium 75 mg tablet,delayed release RxNorm: 169482 1 Tablet(s) PO BID 05/31/20 18 2017 Inactive lisinopril 2.5 mg tablet RxNorm: 086531 1 Tablet(s) PO daily 05/31/20 18 2017 Inactive metoprolol succinate ER 50 mg tablet,extended release 24 hr RxNorm: 384700 1 Tablet(s) PO daily 05/31/20 18 2017 Inactive levothyroxine 50 mcg tablet RxNorm: 804286 1 Tablet(s) PO daily 05/31/20 18 2017 Inactive TRUEplus Lancets 30 gauge RxNorm: 1 Lancets Miscellaneous QAM 05/31/20 18 2017 Inactive 100/box Ventolin HFA 90 mcg/actuation aerosol inhaler RxNorm: 917843 2 Puff(s) INH QID 05/31/20 18 2017 Inactive Aleve 220 mg capsule RxNorm: 5810749 1 Capsule(s) PO BID 05/31/20 18 2018 Inactive ranitidine 150 mg tablet RxNorm: 863241 1 Tablet(s) PO BID 05/31/20 18 2017 Inactive gabapentin 300 mg capsule RxNorm: 755509 1 Capsule(s) PO TID as needed 05/31/20 18 2017 Inactive atorvastatin 20 mg tablet RxNorm: 380265 1 Tablet(s) PO QHS 05/31/20 18 2017 Inactive True Metrix Glucose Test Strip RxNorm: 1 Test Strips Miscellaneous QAM 05/31/20 18 2017 Inactive 50/container Calcium 600-D3 Plus 600 mg calcium-800 unit-50 mg tablet RxNorm: 1 Tablet(s) PO daily take an additonal tablet for itching. 05/31/20 18 2017 Inactive hydrochlorothiazide 12.5 mg tablet RxNorm: 606256 1 Tablet(s) PO QAM 05/31/20 18 2017 Inactive Flintstones Complete (iron) 18 mg iron chewable tablet RxNorm: 1 Tablet(s) PO daily 05/31/20 18 2017 Inactive d-mannose oral powder RxNorm: PO 18 2021 Inactive True Metrix Glucose Meter RxNorm: miscellaneous 08/17/20 19 2018 Inactive sertraline 50 mg tablet RxNorm: 249725 1 Tablet(s) PO daily 11/28/19 20 2019 Inactive loperamide 2 mg tablet RxNorm: 282399 oral 09/29/20 19 2018 Inactive Symbicort 160 mcg-4.5 mcg/actuation HFA aerosol inhaler RxNorm: 4841313 2 Puff(s) INH BID 08/17/20 19 2018 Inactive Medication Administered No Medication Administered data Procedures Procedure Codes Date Tobacco Assessment/Screening CPT-4: TCA Fall Risk Assessment SNOMED CT: 85819753 4 CPT-4: DFRA 01/01/2020 Functional Assessment CPT-4: DFA 01/01/2020 [place] Assessment CPT-4: DSWA 11/04 Patient Health Questionnaire CPT-4: DPHQ [place] Assessment CPT-4: DSWA 10/03 Hypertension CPT-4: HTN 10/17/2019 Fall Risk Assessment SNOMED CT: 47274229 4 CPT-4: DFRA 09/19/2019 Functional Assessment CPT-4: DFA 09/19/2019 Urinalysis, dip stick CPT-4: 75071 06/21/2019 Tobacco Assessment/Screening CPT-4: TCA Patient Health Questionnaire CPT-4: DPHQ AHA/REBECCA Classification Assessment CPT-4: DAHA 04/25/2019 Controlled Substance Report CPT-4: CTRSU 04/03 Urinalysis, dip stick CPT-4: 38199 03/28/2019 Urinalysis, dip stick CPT-4: 80916 03/28/2019 [id number] CPT-4: 07198 Unknown [id number] CPT-4: 40437 Unknown [id number] CPT-4: 23425 Unknown Gynecology Referral SNOMED CT: 515527833 CPT-4: R14 Unknown Reason For Visit No Reason For Visit data Plan of Care Planned Activity Notes Codes Status Date Referral: Pending Gynecology Referral Information Referral Processed Referral: Pending Pulmonolog y Referral Information Referral Processed Referral: Pending Psychiatry Referral Information Referral Initiated Referral: Pending Respirator y Services Referral Information Referral Initiated Referral: Pending Ophthalmol ogy Referral Information Referral Initiated Referral: [facility] WPtel: [address] [place] [address] Flight Radio Officer placed a call out to the patient to notify her that it has been recommended that she be seen by a urologist. Patient agreed to be seen, does not have a provider of choice and no transportation issues. Flight Radio Officer faxed referral and clinical notes to [facility] in [place], [place] near the patient's home. Patient to [...] seen and prefers a provider in the [place] or [facility]. Flight Radio Officer placed a call out to everyone listed in the area and the only location that was able to accept the patient's insurance was [place] [address] [place] [address] and spoke with Maylin. Maylin asked that the patient's referral, face sheet and visit notes be faxed to . Flight Radio Officer faxed over requested documents. Patient appointment confirmation letter generated and mailed to her home address. Patient to call to schedule an appointment. Processed Referral: [facility] WPtel: [address] [facility] [address] [place], [place] [id number] Patient notified that it has been advised that she be seen by Neurology. Patient agreed to be seen and prefers to be seen by a provider in the [place], [place] area. Patient denies any concerns with transportation, and prefers to schedule her own appointment. Flight Radio Officer [place] call out to [place] [...]
--- OUTSIDE RECORDS SUMMARY | 2023-12-07 02:12 | XMS_ITS | CCD ---
Author Name Leena Culver NP Address [id number] [place] [address] [address] [place] [address] Phone Organization [employer] [facility] Phone Care Team Providers Care Meat Inspector Name Role Phone Anna Culver NP Primary Care Provider Unav ailable Unavailable Chronic Care Management Unavaila ble Summary Purpose DataExchange Insurance Providers Payer name Policy type / Coverage type Covered constitution party ID Effective Begin Date Effective End Date SUKI MAYO [id number] Unknown Unknown Family history Mother Diagnosis Age [...] Unknown Disability 05/31/[address]: 740305478 Has never s moked or chewed tobacco 05/31/[address]: 396295846 Never drinks alco hol 05/31/2018 Has the [...] use ICD-10: Z01.89 ICD-9: V72.85 01/01/2020 Active [place] [facility] ICD-10: H10.029 ICD-9: 372.03 12/29/2019 Active [...] UXZ.01 ICD-9: XZ0.1 04/27/2019 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 ICD-10: Z79.899 [...] Headache ICD-10: R51 ICD-9: 784.0 10/03/2018 Active [facility] (current) use of non-steroidal anti-inflammatories (NSAID) ICD-10: Z79.1 ICD-9: V58.64 06/13/2018 Active Medications Medication Codes Instructions Start Date Stop Date Status Fill Instructions True Metrix Glucose Test Strip RxNorm: 1 Test Strips Miscellaneous two times a day as needed 04/17/20 No Stop Date Active metformin 500 mg tablet RxNorm: 657851 1 Tablet(s) Oral every day 04/17/20 20 2019 Inactive diclofenac sodium 75 mg tablet,delayed release RxNorm: 395918 1 Tablet(s) PO BID 04/14/20 20 2021 Inactive This refill negates all other refills of this medication Sudafed 12 Hour 120 mg tablet,extended release RxNorm: 3375676 TAKE 1 TABLET BY MOUTH EVERY 12 HOURS NEEDED 03/14/20 20 2019 Inactive True Metrix Glucose Test Strip RxNorm: 1 Test Strips Miscellaneous every morning 03/13/20 20 2019 Inactive 100/container loperamide 2 mg tablet RxNorm: 983604 1 Tablet(s) Oral as needed take one tablet after each loose stool, maximum of 8 tablets in 24 hours 02/22/20 20 2019 Inactive True Metrix Glucose Test Strip RxNorm: 1 Test Strips Miscellaneous QAM 02/22/20 20 2019 Inactive 100/container cetirizine 10 mg tablet RxNorm: 8322728 1 Tablet(s) PO daily 01/17/20 20 2019 Inactive levothyroxine 50 mcg tablet RxNorm: 442369 1 Tablet(s) PO daily 01/17/20 20 2020 Inactive gabapentin 300 mg capsule RxNorm: 048576 1 Capsule(s) PO TID 01/17/20 20 2019 Inactive loperamide 2 mg tablet RxNorm: 222523 1 Tablet(s) Oral as needed take one tablet after each loose stool, maximum of 8 tablets in 24 hours 01/17/20 20 2019 Inactive quetiapine 100 mg tablet RxNorm: 560771 1 Tablet(s) Oral every night at bedtime 01/17/20 2019 Inactive lisinopril 2.5 mg tablet RxNorm: 413193 1 Tablet(s) PO daily 01/15/20 20 2020 Inactive Singulair 10 mg tablet RxNorm: 578051 1 Tablet(s) PO daily 01/15/20 20 2020 Inactive levothyroxine 50 mcg tablet RxNorm: 617290 1 Tablet(s) PO daily 01/15/20 20 2019 Inactive gabapentin 300 mg capsule RxNorm: 225825 1 Capsule(s) PO TID 01/15/20 20 2019 Inactive cetirizine 10 mg tablet RxNorm: 8369389 1 Tablet(s) PO daily 01/15/20 20 2019 Inactive gentamicin 0.3 % eye drops RxNorm: 118052 1 Drop(s) ophthalmic (eye) four times a day 12/29/19 20 2019 Inactive gentamicin 0.3 % eye drops RxNorm: 817341 1 Drop(s) ophthalmic (eye) four times a day 12/29/19 20 2019 Inactive gentamicin 0.3 % eye drops RxNorm: 970966 1 Drop(s) ophthalmic (eye) four times a day 12/29/19 20 2019 Inactive hydrochlorothiazide 25 mg tablet RxNorm: 349650 1 Tablet(s) Oral every day 12/21/19 20 2019 Inactive Sudafed 12 Hour 120 mg tablet,extended release RxNorm: 9266196 TAKE (1) TABLET BY MOUTH EVERY 12 HOURS NEEDED 12/21/19 20 2019 Inactive loperamide 2 mg tablet RxNorm: 603812 1 Tablet(s) Oral as needed take one tablet after each loose stool, maximum of 8 tablets in 24 hours 12/11/19 20 2019 Inactive loperamide 2 mg tablet RxNorm: 043558 1 Tablet(s) Oral as needed take one tablet after each loose stool, maximum of 8 tablets in 24 hours 12/11/19 20 2019 Inactive atorvastatin 40 mg tablet RxNorm: 750348 1 Tablet(s) Oral every day 11/29/19 20 03/04/ 2021 Inactive sertraline 100 mg tablet RxNorm: 455835 1 Tablet(s) Oral 11/28/19 20 2019 Inactive quetiapine 100 mg tablet RxNorm: 132190 1 Tablet(s) Oral every night at bedtime 11/28/19 20 2019 Inactive omeprazole 20 mg capsule,delayed release RxNorm: 395726 1 Capsule(s) Oral every day 11/20/19 20 2019 Inactive amoxicillin 250 mg capsule RxNorm: 179804 1 Capsule(s) Oral three times a day 11/07/19 20 2019 Inactive multivitamin with iron-mineral tablet RxNorm: 1 Tablet(s) Oral every day 10/29/19 20 2021 Inactive cetirizine 10 mg tablet RxNorm: 0300865 1 Tablet(s) PO daily 10/20/19 20 2019 Inactive This refill negates all other refills of this medication. Please do not auto refill Singulair 10 mg tablet RxNorm: 191471 1 Tablet(s) PO daily 10/20/19 20 2019 Inactive This refill negates all other refills of this medication gabapentin 300 mg capsule RxNorm: 608191 1 Capsule(s) PO TID 10/20/19 20 2019 Inactive lisinopril 2.5 mg tablet RxNorm: 209643 1 Tablet(s) PO daily 10/20/19 20 2019 Inactive levothyroxine 50 mcg tablet RxNorm: 855269 1 Tablet(s) PO daily 10/20/19 20 2019 Inactive This refill negates all other refills of this medication fenugreek seed extract 500 mg capsule RxNorm: 1 Capsule(s) Oral three times a day 10/17/19 20 2021 Inactive hydrochlorothiazide 25 mg tablet RxNorm: 372923 1 Tablet(s) Oral every day 10/17/19 20 2019 Inactive Alcohol Prep Pads RxNorm: 822970 1 Patch TOP QAM 10/16/19 20 2020 Inactive loperamide 2 mg tablet RxNorm: 467480 1 Tablet(s) Oral as needed take one [...] 2019 Inactive hydrochlorothiazide 25 mg tablet RxNorm: 858971 1 Tablet(s) Oral every day 09/19/20 19 2019 Inactive Sudafed 12 Hour 120 mg tablet,extended release RxNorm: 8311666 1 Tablet(s) Oral every 12 hours as needed 09/11/20 19 2018 Inactive omeprazole 20 mg capsule,delayed release RxNorm: 464553 1 Capsule(s) Oral every day 09/07/20 19 2019 Inactive Sudafed 12 Hour 120 mg tablet,extended release RxNorm: 9407401 1 Tablet(s) Oral every 12 hours as needed 09/04/20 19 2018 Inactive pantoprazole 40 mg tablet,delayed release RxNorm: 967997 1 Tablet(s) Oral every day 08/24/20 19 2018 Inactive discontinue any other H2Blkr. and PPI albuterol sulfate 2.5 mg/3 mL (0.083 %) solution for nebulization RxNorm: 762506 1 Vial Inhalation every four hours as needed as needed for dyspnea 08/17/20 19 2019 Inactive 60/box. This refill negates all other refills of this medication. Please do not fill early. Please do not auto refill. Symbicort 160 mcg-4.5 mcg/actuation HFA aerosol inhaler RxNorm: 0334473 2 Puff(s) INH BID 08/17/20 No Stop Date Active Alcohol Prep Pads RxNorm: 304395 1 Patch TOP QAM 08/17/20 19 2019 Inactive Ventolin HFA 90 mcg/actuation aerosol inhaler RxNorm: 536156 2 Puff(s) INH QID 08/09/20 19 2019 Inactive Please do not fill early. Please do not auto refill. This refill negates all other refills of this medication True Metrix Glucose Test Strip RxNorm: 1 Test Strips Miscellaneous QAM 08/09/20 19 2019 Inactive 100/container atorvastatin 40 mg tablet RxNorm: 236322 1 Tablet(s) Oral every day 07/04/20 19 2019 Inactive levmetamfetamine 50 mg nasal inhaler RxNorm: 1 Unit(s) NASAL Q3-4H Do not use more than every 3 hours or 8 times/24hours 06/26/20 19 2021 Inactive Please do not auto refill. This refill negates all other refills of this medication buspirone 7.5 mg tablet RxNorm: 998912 1 Tablet(s) PO BID 06/26/20 19 2020 Inactive This refill negates all other refills of this medication hydrochlorothiazide 12.5 mg tablet RxNorm: 366207 1 Tablet(s) PO QAM 06/26/20 19 2019 Inactive Ventolin HFA 90 mcg/actuation aerosol inhaler RxNorm: 402099 2 Puff(s) INH QID 06/26/20 19 2018 Inactive Please do not fill early. Please do not auto refill. This refill negates all other refills of this medication Singulair 10 mg tablet RxNorm: 556690 1 Tablet(s) PO daily 06/26/20 19 2019 Inactive This refill negates all other refills of this medication cetirizine 10 mg tablet RxNorm: 4089638 1 Tablet(s) PO daily 06/26/20 19 2019 Inactive This refill negates all other refills of this medication. Please do not auto refill levothyroxine 50 mcg tablet RxNorm: 718205 1 Tablet(s) PO daily 06/26/20 19 2019 Inactive This refill negates all other refills of this medication diclofenac sodium 75 mg tablet,delayed release RxNorm: 996928 1 Tablet(s) PO BID 06/26/20 19 2019 Inactive This refill negates all other refills of this medication ranitidine 150 mg tablet RxNorm: 317357 1 Tablet(s) PO BID 06/26/20 19 2018 Inactive This refill negates all other refills of this medication Calcium 600-D3 Plus (mag-zinc) 600 mg calcium-800 unit-50 mg tablet RxNorm: 1 Tablet(s) PO daily take an additonal tablet for itching. 06/26/20 19 2018 Inactive This refill negates all other refills of this medication albuterol sulfate 2.5 mg/3 mL (0.083 %) solution for nebulization RxNorm: 532094 1 Vial INH QID 06/26/20 19 2018 Inactive 60/box. This refill negates all other refills of this medication. Please do not fill early. Please do not auto refill. lisinopril 2.5 mg tablet RxNorm: 806308 1 Tablet(s) PO daily 06/21/20 19 2019 Inactive gabapentin 300 mg capsule RxNorm: 105916 1 Capsule(s) PO TID 06/21/20 19 2019 Inactive atorvastatin 20 mg tablet RxNorm: 295812 1 Tablet(s) PO QHS 06/07/20 19 2018 Inactive This refill negates all other refills of this medication TRUEplus Lancets 30 gauge RxNorm: 1 Lancets Miscellaneous QAM 05/29/20 19 2018 Inactive 100/box gabapentin 300 mg capsule RxNorm: 680544 1 Capsule(s) PO TID 05/03/20 19 2018 Inactive Flintstones Complete (iron) 18 mg iron chewable tablet RxNorm: 1 Tablet(s) PO daily 04/04/20 19 2021 Inactive This refill negates all other refills of this medication gabapentin 300 mg capsule RxNorm: 385602 1 Capsule(s) PO TID as needed 02/01/20 19 2018 Inactive True Metrix Glucose Test Strip RxNorm: 1 Test Strips Miscellaneous QAM 02/01/20 19 2018 Inactive 100/container Alcohol Prep Pads RxNorm: 696617 1 Patch TOP QAM 02/01/20 19 2018 Inactive TRUEplus Lancets 30 gauge RxNorm: 1 Lancets Miscellaneous QAM 02/01/20 19 2018 Inactive 100/box lisinopril 2.5 mg tablet RxNorm: 552296 1 Tablet(s) PO daily 12/28/19 19 2018 Inactive ranitidine 150 mg tablet RxNorm: 882643 1 Tablet(s) PO BID 10/21/19 19 2018 Inactive This refill negates all other refills of this medication albuterol sulfate 2.5 mg/3 mL (0.083 %) solution for nebulization RxNorm: 847566 1 Vial INH QID 10/21/192018 Inactive 60/box. [...] this medication gabapentin 300 mg capsule RxNorm: 600176 1 Capsule(s) PO TID as needed 10/21/19 19 2018 Inactive atorvastatin 20 mg tablet RxNorm: 425307 1 Tablet(s) PO QHS 10/21/192018 Inactive This refill negates all other refills of this medication trazodone 50 mg tablet RxNorm: 779879 1 Tablet(s) PO QHS 10/21/19 19 2018 Inactive This refill negates all other refills of this medication Ventolin HFA 90 mcg/actuation aerosol inhaler RxNorm: 623591 2 Puff(s) INH QID 10/21/19 19 2018 [...] tablet RxNorm: 441883 1 Tablet(s) PO daily 10/21/19 19 2018 Inactive This refill negates all other refills of this medication buspirone 7.5 mg tablet RxNorm: 005126 1 Tablet(s) PO BID 10/21/19 19 2018 Inactive This refill negates all other refills of this medication diclofenac sodium 75 mg tablet,delayed release RxNorm: 916055 1 Tablet(s) PO BID 10/21/19 19 2018 Inactive This refill negates all other refills of this medication hydrochlorothiazide 12.5 mg tablet RxNorm: 020448 1 Tablet(s) PO QAM 10/21/19 19 2018 Inactive metoprolol succinate ER 50 mg tablet,extended release 24 hr RxNorm: 918664 1 Tablet(s) PO daily 10/21/19 19 2018 Inactive This refill negates all other refills of this medication levothyroxine 50 mcg tablet RxNorm: 351621 1 Tablet(s) PO daily 10/21/192018 Inactive This refill negates all other refills of this medication cetirizine 10 mg tablet RxNorm: 6148494 1 Tablet(s) PO daily 10/21/192018 Inactive This refill negates all other refills of this medication. Please do not auto refill Flintstones Complete (iron) 18 mg iron chewable tablet RxNorm: 1 Tablet(s) PO daily 10/21/192018 Inactive This refill negates all other refills of this medication buspirone 7.5 mg tablet RxNorm: 270520 1 Tablet(s) PO BID 10/12/192018 Inactive cetirizine 10 mg tablet RxNorm: 5957045 1 Tablet(s) PO daily 09/28/202018 Inactive Guaiasorb DM 10 mg-100 mg/5 mL oral liquid RxNorm: 357135 10 Milliliter(s) PO As needed every 4 hr 09/24/20 18 2018 Inactive Vicks Vaporub 4.7 %-1.2 %-2.6 % topical ointment RxNorm: 5646888 1 Application TOP TID 09/24/20 18 2018 Inactive levmetamfetamine 50 mg nasal inhaler RxNorm: 1 Unit(s) NASAL Q3-4H 09/24/20 18 2017 Inactive sertraline 50 mg tablet RxNorm: 240448 1 Tablet(s) PO daily 09/09/20 18 2018 Inactive Please note dose trazodone 50 mg tablet RxNorm: 949520 1 Tablet(s) PO QHS 09/06/20 18 2018 Inactive sertraline 50 mg tablet RxNorm: 548076 1 Tablet(s) PO daily 09/06/20 18 2017 Inactive amoxicillin 500 mg tablet RxNorm: 252756 1 Tablet(s) PO Q12H 08/31/20 18 2017 Inactive albuterol sulfate 2.5 mg/3 mL (0.083 %) solution for nebulization RxNorm: 263260 1 Vial INH QID 08/10/20 18 2018 Inactive 60/box. Please do not fill early. Please do not auto refill. Prozac 10 mg capsule RxNorm: 695228 1 Capsule(s) PO daily 08/09/20 18 2017 Inactive buspirone 7.5 mg tablet RxNorm: 354223 1 Tablet(s) PO BID 08/09/20 18 2018 Inactive gabapentin 300 mg capsule RxNorm: 089659 1 Capsule(s) PO TID as needed 08/01/20 18 2018 Inactive hydrochlorothiazide 12.5 mg tablet RxNorm: 132406 1 Tablet(s) PO QAM 08/01/20 18 2018 Inactive ranitidine 150 mg tablet RxNorm: 596509 1 Tablet(s) PO BID 08/01/20 18 2018 Inactive Macrobid 100 mg capsule RxNorm: 538680 1 Capsule(s) PO Q12H 06/21/20 18 2017 Inactive Singulair 10 mg tablet RxNorm: 819952 1 Tablet(s) PO daily 06/14/20 18 2018 Inactive Ventolin HFA 90 mcg/actuation aerosol inhaler RxNorm: 7313143 2 Puff(s) INH QID 06/14/20 18 2018 Inactive Singulair 10 mg tablet RxNorm: 397301 1 Tablet(s) PO daily 06/14/20 18 2017 Inactive buspirone 7.5 mg tablet RxNorm: 169573 1 Tablet(s) PO BID 06/14/20 18 2017 Inactive Prozac 10 mg capsule RxNorm: 714555 1 Capsule(s) PO daily 06/14/20 18 2017 Inactive Neilmed Pediatric Sinus Rinse Refill packet RxNorm: 1 Unit Dose NASAL PRN 05/31/20 18 2021 Inactive diclofenac sodium 75 mg tablet,delayed release RxNorm: 924257 1 Tablet(s) PO BID 05/31/20 18 2017 Inactive lisinopril 2.5 mg tablet RxNorm: 904718 1 Tablet(s) PO daily 05/31/20 18 2017 Inactive metoprolol succinate ER 50 mg tablet,extended release 24 hr RxNorm: 445215 1 Tablet(s) PO daily 05/31/20 18 2017 Inactive levothyroxine 50 mcg tablet RxNorm: 992314 1 Tablet(s) PO daily 05/31/20 18 2017 Inactive TRUEplus Lancets 30 gauge RxNorm: 1 Lancets Miscellaneous QAM 05/31/20 18 2017 Inactive 100/box Ventolin HFA 90 mcg/actuation aerosol inhaler RxNorm: 056977 2 Puff(s) INH QID 05/31/20 18 2017 Inactive Aleve 220 mg capsule RxNorm: 9467953 1 Capsule(s) PO BID 05/31/20 18 2018 Inactive ranitidine 150 mg tablet RxNorm: 656324 1 Tablet(s) PO BID 05/31/20 18 2017 Inactive gabapentin 300 mg capsule RxNorm: 067813 1 Capsule(s) PO TID as needed 05/31/20 18 2017 Inactive atorvastatin 20 mg tablet RxNorm: 301645 1 Tablet(s) PO QHS 05/31/20 18 2017 Inactive True Metrix Glucose Test Strip RxNorm: 1 Test Strips Miscellaneous QA 05/31/20 18 2017 Inactive 50/container Calcium 600-D3 Plus 600 mg calcium-800 unit-50 mg tablet RxNorm: 1 Tablet(s) PO daily take an additonal tablet for itching. 05/31/20 18 2017 Inactive hydrochlorothiazide 12.5 mg tablet RxNorm: 812347 1 Tablet(s) PO QAM 05/31/20 18 2017 Inactive Flintstones Complete (iron) 18 mg iron chewable tablet RxNorm: 1 Tablet(s) PO daily 05/31/20 18 2017 Inactive d-mannose oral powder RxNorm: PO 18 2021 Inactive True Metrix Glucose Meter RxNorm: miscellaneous 08/17/20 19 2018 Inactive sertraline 50 mg tablet RxNorm: 947248 1 Tablet(s) PO daily 11/28/19 20 2019 Inactive loperamide 2 mg tablet RxNorm: 377385 oral 09/29/20 19 2018 Inactive Symbicort 160 mcg-4.5 mcg/actuation HFA aerosol inhaler RxNorm: 3997800 2 Puff(s) INH BID 08/17/20 19 2018 Inactive Medication Administered No Medication Administered data Procedures Procedure Codes Date Breast Cancer Screening Screening for Breast Cancer/Screened:/No/Mammogram not clinically indicated due to < 50 years of age CPT-4: BCSUnknown 04/02 Colorectal Screening Screening for Colorectal Cancer/Screened:/No/CRC screening not clinically indicated due to < 50 years of age CPT-4: CRSUnknown 04/17/2020 Tobacco Assessment/Screening CPT-4: TCA Fall Risk Assessment SNOMED CT: 47551378 4 CPT-4: DFRA 01/01/2020 Functional Assessment CPT-4: DFA 01/01/2020 [place] Assessment CPT-4: DSWA 11/04 Patient Health Questionnaire CPT-4: DPHQ [place] Assessment CPT-4: DSWA 10/03 Hypertension CPT-4: HTN 10/17/2019 Fall Risk Assessment SNOMED CT: 40043362 4 CPT-4: DFRA 09/19/2019 Functional Assessment CPT-4: DFA 09/19/2019 Urinalysis, dip stick CPT-4: 53538 06/21/2019 Tobacco Assessment/Screening CPT-4: TCA Patient Health Questionnaire CPT-4: DPHQ AHA/REBECCA Classification Assessment CPT-4: DAHA 04/25/2019 Controlled Substance Report CPT-4: CTRSU 04/03 Urinalysis, dip stick CPT-4: 24234 03/28/2019 Urinalysis, dip stick CPT-4: 30944 03/28/2019 [id number]-Ysqskzmcxexosvx CPT-4: 87021 Unknown L6Z-Sftwypywktfezjr CPT-4: 83450 Unknown O3M-Crzxsrtnvnrteml CPT-4: 80672 Unknown Gynecology Referral SNOMED CT: 603062139 CPT-4: R14 Unknown Vital Signs Date Vital 04/17/2020 Blood Pressure 1: 10 Code: 8480-6 Heart Rate 1: 90 bpm Weight: 264 lbs Code: 43869-4 Reason For Visit Reason For Visit Effective Dates Notes hypertension 04/17/2020 diabetes mellitus 04/17/2020 Interim health update 04/17/2020 Encounters Encounter Performer Location Location Address Codes [place] ([id number]) (EST PT) EXPANDED PROBLEM FOCUSED TELEHEALTH VISIT Diagnosis: Type 2 diabetes mellitus with peripheral neuropathy[ICD10: E11.42] Diagnosis: Chronic kidney disease, unspecified[ICD10 : N18.9] Diagnosis: (Z12.31-V76.12) Encounter for screening mammogram for malignant neoplasm of breast[ICD10: Z12.31] Diagnosis: (Z12.11-V76.51) Encounter for screening for malignant neoplasm of colon[ICD10: Z12.11] Anna Tejada Office [address] [place], [place] [address] CPT-4: 33202 04/17/2020 Plan of Care Planned Activity Notes Codes [...] appointment 06/2020 G47.33-327.23 Obstructive sleep apnea (adult) (pediatric) J45.909-493.90 Asthma continue inhalers and nebulizer wears cpap every night, believes that is helpful Dr. Garcia, pulmonology for chronic sleep apnea and asthma-audio visit last week Cpap pressure setting increased to 12-request records F43.23-309.28 Adjustment disorder with mixed anxiety and depressed mood routine follow up Idalia at [place] E03.9-244.9 Hypothyroidism, unspecified cont levothyroxine N39.46-788.33 Mixed [...] verbalized understanding of all above topics. 04/17/2020 Patient Education: Patient Medication Summary Completed 04/17/2020 Patient Education: Hypertension Completed 04/17/2020 Patient Education: Diabetes Complete d 04/17/2020 Appointment: Anna Culver WPtel: [address] [place] [address] E452 03/21/2020 Appointment: Anna Culver WPtel: [address] [place] [address] E452 02/14/2020 Appointment: Anna Culver WPtel: [address] [place] [address] E452 01/24/2020 Appointment: Anna Culver WPtel: [phone] [place] [address] E452 01/01/2020 Appointment: Anna Culver WPtel: [phone] [place] [address] E452 11/28/2019 Appointment: Anna Culver WPtel: [address] [place] [address] E452 10/17/2019 Appointment: Anna Culver WPtel: [phone] [place] [address] [place], [place] [address] E452 09/19/2019 Appointment: Sudha Hernadez WPtel: [address] [facility] [id number] E452 07/04/2019 Appointment: Sudha Hernadez WPtel: [address] [facility] [id number] E452 06/21/2019 Appointment: Charlene Oropeza WPtel: [address] [facility] [id number] E452 05/24/2019 Appointment: Mallory Delgado E452 04/27/2019 Appointment: Charlene Oropeza WPtel: [address] [facility] [id number] E452 04/25/2019 Appointment: Rasta Palafox WPtel: [address] [facility] [id number] E452 03/28/2019 Appointment: Rasta Palafox WPtel: [address] [facility] [id number] E452 02/14/2019 Appointment: Rasta Palafox WPtel: [address] [facility] [id number] E452 01/31/2019 Appointment: Rasta Palafox WPtel: [address] [place] [address] [id number] E420 12/27/2018 Referral: Pending Gynecology Referral Information Referral Processed Referral: Pending Pulmonolog y Referral Information Referral Processed Referral: Pending Psychiatry Referral Information Referral Initiated Referral: Pending Respirator y Services Referral Information Referral Initiated Referral: Pending Ophthalmology Referral Information Referral Initiated Referral: [facility] WPtel: [address] [place] Medical Investigator placed a call out to the patient to notify her that it has been recommended that she be seen by a urologist. Patient agreed to be seen, does not have a provider of choice and no transportation issues. Medical Investigator faxed referral and clinical notes to [facility] in [place], [place] near the patient's home. Patient to [...] seen and prefers a provider in the [place] area. Medical Investigator placed a call out to everyone listed in the area and the only location that was able to accept the patient's insurance was [address] [phone] and spoke with Maylin. Maylin asked that the patient's referral, face sheet and visit notes be faxed to . Medical Investigator faxed over requested documents. Patient appointment confirmation letter generated and mailed to her home address. Patient to call to schedule an appointment. [facility] W[facility]: [address] [place] [address] Patient notified that it has been advised that she be seen by Neurology. Patient agreed to be seen and prefers to be seen by a provider in the [place], [place] area. Patient denies any concerns with transportation, and prefers to schedule her own appointment. Medical Investigator placed a call out to [facility] and spoke with [...] every night, believes that is helpful Dr. Garica, pulmonology for chronic sleep apnea and asthma-audio visit last week Cpap pressure setting increased to 12-request records F43.23-309.28 Adjustment disorder with mixed anxiety and depressed mood routine follow up Idalia at [place] E03.9-244.9 Hypothyroidism, unspecified cont levothyroxine N39.46-788.33 Mixed [...]
--- OUTSIDE RECORDS SUMMARY | 2023-12-07 02:13 | XMS_ITS | CCD ---
Author Name Leena Culver NP Address [id number] [place] [address] [place] [address] Phone Organization [facility] Phone Care Team Providers [facility] Rn Name Role Phone Anna Culver NP Primary Care Provider Unav ailable Unavailable Chronic Care Management Unavaila ble Summary Purpose DataExchange Insurance Providers Payer name Policy type / Coverage type Covered alliance party ID Effective Begin Date Effective End Date SUKI MYAO [id number] Unknown Unknown Family history Mother Diagnosis Age [...] Unknown Disability 05/31/[address]: 670074122 Has never s moked or chewed tobacco 05/31/[address]: 970203540 Never drinks alco hol 05/31/2018 Has the [...] E11.42 ICD-9: 250.60 11/28/2019 Active Encounter for screening, unspecified ICD-10: Z13.9 [...] use ICD-10: Z01.89 ICD-9: V72.85 01/01/[address] [facility] ICD-10: H10.029 ICD-9: 372.03 12/29/2019 Active [...] ICD-10: UXZ.01 ICD-9: XZ0.1 04/27/2019 Active Other [facility] (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 [...] Fill Instructions gabapentin 300 mg capsule RxNorm: 302523 TAKE 1 CAPSULE BY MOUTH THREE TIMES DAILY 07/11/20 20 2020 Inactive cetirizine 10 mg tablet RxNorm: 8655230 TAKE (1) TABLET BY MOUTH DAILY 07/11/20 20 2020 Inactive metformin 500 mg tablet RxNorm: 403118 1 Tablet(s) Oral two times a day 07/08/20 20 2019 Inactive loperamide 2 mg tablet RxNorm: 952295 1 Tablet(s) Oral as needed take one tablet after each loose stool, maximum of 8 tablets in 24 hours 06/24/20 20 2021 Inactive Sudafed 12 Hour 120 mg tablet,extended release RxNorm: 2079483 TAKE 1 TABLET BY MOUTH EVERY 12 HOURS NEEDED 06/11/20 20 2019 Inactive hydrochlorothiazide 25 mg tablet RxNorm: 653881 TAKE (1) TABLET BY MOUTH EVERY DAY 06/11/20 20 2019 Inactive omeprazole 20 mg capsule,delayed release RxNorm: 528980 TAKE 1 CAPSULE BY MOUTH EVERY DAY 05/14/20 20 2020 Inactive metformin 500 mg tablet RxNorm: 065962 1 Tablet(s) Oral every day 05/12/20 20 2019 Inactive True Metrix Glucose Test Strip RxNorm: 1 Test Strips Miscellaneous two times a day as needed 04/17/20 No Stop Date Active metformin 500 mg tablet RxNorm: 623558 1 Tablet(s) Oral every day 04/17/20 20 2019 Inactive diclofenac sodium 75 mg tablet,delayed release RxNorm: 256599 1 Tablet(s) PO BID 04/14/20 20 2021 Inactive This refill negates all other refills of this medication Sudafed 12 Hour 120 mg tablet,extended release RxNorm: 7564368 TAKE 1 TABLET BY MOUTH EVERY 12 HOURS NEEDED 03/14/20 20 2019 Inactive True Metrix Glucose Test Strip RxNorm: 1 Test Strips Miscellaneous every morning 03/13/20 20 2019 Inactive 100/container True Metrix Glucose Test Strip RxNorm: 1 Test Strips Miscellaneous QAM 02/22/20 20 2019 Inactive 100/container loperamide 2 mg tablet RxNorm: 014827 1 Tablet(s) Oral as needed take one tablet after each loose stool, maximum of 8 tablets in 24 hours 02/22/20 20 2019 Inactive levothyroxine 50 mcg tablet RxNorm: 488004 1 Tablet(s) PO daily 01/17/20 20 2020 Inactive cetirizine 10 mg tablet RxNorm: 3937421 1 Tablet(s) PO daily 01/17/20 20 2019 Inactive loperamide 2 mg tablet RxNorm: 291487 1 Tablet(s) Oral as needed take one tablet after each loose stool, maximum of 8 tablets in 24 hours 01/17/20 20 2019 Inactive quetiapine 100 mg tablet RxNorm: 393333 1 Tablet(s) Oral every night at bedtime 01/17/20 20 2019 Inactive gabapentin 300 mg capsule RxNorm: 786564 1 Capsule(s) PO TID 01/17/20 20 2019 Inactive lisinopril 2.5 mg tablet RxNorm: 484044 1 Tablet(s) PO daily 01/15/20 20 2020 Inactive Singulair 10 mg tablet RxNorm: 826112 1 Tablet(s) PO daily 01/15/20 20 2020 Inactive levothyroxine 50 mcg tablet RxNorm: 367566 1 Tablet(s) PO daily 01/15/20 20 2019 Inactive gabapentin 300 mg capsule RxNorm: 115832 1 Capsule(s) PO TID 01/15/20 20 2019 Inactive cetirizine 10 mg tablet RxNorm: 7919688 1 Tablet(s) PO daily 01/15/20 20 2019 Inactive gentamicin 0.3 % eye drops RxNorm: 279460 1 Drop(s) ophthalmic (eye) four times a day 12/29/19 20 2019 Inactive gentamicin 0.3 % eye drops RxNorm: 031915 1 Drop(s) ophthalmic (eye) four times a day 12/29/19 20 2019 Inactive gentamicin 0.3 % eye drops RxNorm: 461809 1 Drop(s) ophthalmic (eye) four times a day 12/29/19 20 2019 Inactive hydrochlorothiazide 25 mg tablet RxNorm: 863243 1 Tablet(s) Oral every day 12/21/19 20 2019 Inactive Sudafed 12 Hour 120 mg tablet,extended release RxNorm: 9757907 TAKE (1) TABLET BY MOUTH EVERY 12 HOURS NEEDED 12/21/19 20 2019 Inactive loperamide 2 mg tablet RxNorm: 150600 1 Tablet(s) Oral as needed take one tablet after each loose stool, maximum of 8 tablets in 24 hours 12/11/19 20 2019 Inactive loperamide 2 mg tablet RxNorm: 642067 1 Tablet(s) Oral as needed take one tablet after each loose stool, maximum of 8 tablets in 24 hours 12/11/19 20 2019 Inactive atorvastatin 40 mg tablet RxNorm: 485168 1 Tablet(s) Oral every day 11/29/19 20 2020 Inactive quetiapine 100 mg tablet RxNorm: 476144 1 Tablet(s) Oral every night at bedtime 11/28/19 20 2019 Inactive sertraline 100 mg tablet RxNorm: 408076 1 Tablet(s) Oral 11/28/19 20 2019 Inactive omeprazole 20 mg capsule,delayed release RxNorm: 298332 1 Capsule(s) Oral every day 11/20/19 20 2019 Inactive amoxicillin 250 mg capsule RxNorm: 040213 1 Capsule(s) Oral three times a day 11/07/19 20 2019 Inactive multivitamin with iron-mineral tablet RxNorm: 1 Tablet(s) Oral every day 10/29/19 20 2021 Inactive cetirizine 10 mg tablet RxNorm: 2516301 1 Tablet(s) PO daily 10/20/192019 Inactive This refill negates all other refills of this medication. Please do not auto refill Singulair 10 mg tablet RxNorm: 224441 1 Tablet(s) PO daily 10/20/19 20 2019 Inactive This refill negates all other refills of this medication gabapentin 300 mg capsule RxNorm: 257478 1 Capsule(s) PO TID 10/20/192019 Inactive lisinopril 2.5 mg tablet RxNorm: 169378 1 Tablet(s) PO daily 10/20/192019 Inactive levothyroxine 50 mcg tablet RxNorm: 522440 1 Tablet(s) PO daily 10/20/192019 Inactive This refill negates all other refills of this medication fenugreek seed extract 500 mg capsule RxNorm: 1 Capsule(s) Oral three times a day 10/17/19 20 2021 Inactive hydrochlorothiazide 25 mg tablet RxNorm: 538083 1 Tablet(s) Oral every day 10/17/192019 Inactive Alcohol Prep Pads RxNorm: 700135 1 Patch TOP QAM 10/16/19 20 2020 Inactive loperamide 2 mg tablet RxNorm: 080575 1 Tablet(s) Oral as needed take one [...] 09/19/202019 Inactive hydrochlorothiazide 25 mg tablet RxNorm: 284560 1 Tablet(s) Oral every day 09/19/20 19 2019 Inactive Sudafed 12 Hour 120 mg tablet,extended release RxNorm: 1075269 1 Tablet(s) Oral every 12 hours as needed 09/11/20 19 2018 Inactive omeprazole 20 mg capsule,delayed release RxNorm: 584970 1 Capsule(s) Oral every day 09/07/20 19 2019 Inactive Sudafed 12 Hour 120 mg tablet,extended release RxNorm: 3199263 1 Tablet(s) Oral every 12 hours as needed 09/04/20 19 2018 Inactive pantoprazole 40 mg tablet,delayed release RxNorm: 605199 1 Tablet(s) Oral every day 08/24/20 19 2018 Inactive discontinue any other H2Blkr. and PPI albuterol sulfate 2.5 mg/3 mL (0.083 %) solution for nebulization RxNorm: 431051 1 Vial Inhalation every four hours as needed as needed for dyspnea 08/17/20 19 2019 Inactive 60/box. This refill negates all other refills of this medication. Please do not fill early. Please do not auto refill. Symbicort 160 mcg-4.5 mcg/actuation HFA aerosol inhaler RxNorm: 9664666 2 Puff(s) INH BID 08/17/20 19 No Stop Date Active Alcohol Prep Pads RxNorm: 710350 1 Patch TOP QAM 08/17/20 19 2019 Inactive Ventolin HFA 90 mcg/actuation aerosol inhaler RxNorm: 604034 2 Puff(s) INH QID 08/09/20 19 2019 Inactive Please do not fill early. Please do not auto refill. This refill negates all other refills of this medication True Metrix Glucose Test Strip RxNorm: 1 Test Strips Miscellaneous QAM 08/09/20 19 2019 Inactive 100/container atorvastatin 40 mg tablet RxNorm: 820331 1 Tablet(s) Oral every day 07/04/20 19 2019 Inactive levmetamfetamine 50 mg nasal inhaler RxNorm: 1 Unit(s) NASAL Q3-4H Do not use more than every 3 hours or 8 times/24hours 06/26/20 19 2021 Inactive Please do not auto refill. This refill negates all other refills of this medication buspirone 7.5 mg tablet RxNorm: 810742 1 Tablet(s) PO BID 06/26/20 19 2020 Inactive This refill negates all other refills of this medication hydrochlorothiazide 12.5 mg tablet RxNorm: 283672 1 Tablet(s) PO QAM 06/26/20 19 2019 Inactive Ventolin HFA 90 mcg/actuation aerosol inhaler RxNorm: 747554 2 Puff(s) INH QID 06/26/20 19 2018 Inactive Please do not fill early. Please do not auto refill. This refill negates all other refills of this medication Singulair 10 mg tablet RxNorm: 093300 1 Tablet(s) PO daily 06/26/20 19 2019 Inactive This refill negates all other refills of this medication cetirizine 10 mg tablet RxNorm: 8012352 1 Tablet(s) PO daily 06/26/20 19 2019 Inactive This refill negates all other refills of this medication. Please do not auto refill levothyroxine 50 mcg tablet RxNorm: 801718 1 Tablet(s) PO daily 06/26/20 19 2019 Inactive This refill negates all other refills of this medication diclofenac sodium 75 mg tablet,delayed release RxNorm: 992414 1 Tablet(s) PO BID 06/26/20 19 2019 Inactive This refill negates all other refills of this medication ranitidine 150 mg tablet RxNorm: 146302 1 Tablet(s) PO BID 06/26/20 19 2018 Inactive This refill negates all other refills of this medication Calcium 600-D3 Plus (mag-zinc) 600 mg calcium-800 unit-50 mg tablet RxNorm: 1 Tablet(s) PO daily take an additonal tablet for itching. 06/26/20 19 2018 Inactive This refill negates all other refills of this medication albuterol sulfate 2.5 mg/3 mL (0.083 %) solution for nebulization RxNorm: 889857 1 Vial INH QID 06/26/20 19 2018 Inactive 60/box. This refill negates all other refills of this medication. Please do not fill early. Please do not auto refill. lisinopril 2.5 mg tablet RxNorm: 190096 1 Tablet(s) PO daily 06/21/20 19 2019 Inactive gabapentin 300 mg capsule RxNorm: 146440 1 Capsule(s) PO TID 06/21/20 19 2019 Inactive atorvastatin 20 mg tablet RxNorm: 800641 1 Tablet(s) PO QHS 06/07/20 19 2018 Inactive This refill negates all other refills of this medication TRUEplus Lancets 30 gauge RxNorm: 1 Lancets Miscellaneous QAM 05/29/20 19 2018 Inactive 100/box gabapentin 300 mg capsule RxNorm: 780918 1 Capsule(s) PO TID 05/03/20 19 2018 Inactive Flintstones Complete (iron) 18 mg iron chewable tablet RxNorm: 1 Tablet(s) PO daily 04/04/20 19 2021 Inactive This refill negates all other refills of this medication gabapentin 300 mg capsule RxNorm: 349255 1 Capsule(s) PO TID as needed 02/01/20 19 2018 Inactive True Metrix Glucose Test Strip RxNorm: 1 Test Strips Miscellaneous QA 02/01/20 19 2018 Inactive 100/container Alcohol Prep Pads RxNorm: 963859 1 Patch TOP QA 02/01/20 19 2018 Inactive TRUEplus Lancets 30 gauge RxNorm: 1 Lancets Miscellaneous QAM 02/01/20 19 2018 Inactive 100/box lisinopril 2.5 mg tablet RxNorm: 425900 1 Tablet(s) PO daily 12/28/19 19 2018 Inactive ranitidine 150 mg tablet RxNorm: 848217 1 Tablet(s) PO BID 10/21/19 19 2018 Inactive This refill negates all other refills of this medication albuterol sulfate 2.5 mg/3 mL (0.083 %) solution for nebulization RxNorm: 845990 1 Vial INH QID 10/21/19 19 2018 [...] this medication gabapentin 300 mg capsule RxNorm: 830382 1 Capsule(s) PO TID as needed 10/21/19 19 2018 Inactive atorvastatin 20 mg tablet RxNorm: 726288 1 Tablet(s) PO QHS 10/21/192018 Inactive This refill negates all other refills of this medication trazodone 50 mg tablet RxNorm: 341311 1 Tablet(s) PO QHS 10/21/192018 Inactive This refill negates all other refills of this medication Ventolin HFA 90 mcg/actuation aerosol inhaler RxNorm: 068046 2 Puff(s) INH QID 10/21/192018 Inactive Please do not fill early. Please do not auto refill. This refill negates all other refills of this medication Calcium 600-D3 Plus 600 mg calcium-800 unit-50 mg tablet RxNorm: 1 Tablet(s) PO daily take an additonal tablet for itching. 10/21/192018 Inactive This refill negates all other refills of this medication Singulair 10 mg tablet RxNorm: 282937 1 Tablet(s) PO daily 10/21/192018 Inactive This refill negates all other refills of this medication buspirone 7.5 mg tablet RxNorm: 255311 1 Tablet(s) PO BID 10/21/192018 Inactive This refill negates all other refills of this medication diclofenac sodium 75 mg tablet,delayed release RxNorm: 511395 1 Tablet(s) PO BID 01/19/2018 Inactive This refill negates all other refills of this medication hydrochlorothiazide 12.5 mg tablet RxNorm: 393949 1 Tablet(s) PO QAM 10/21/192018 Inactive metoprolol succinate ER 50 mg tablet,extended release 24 hr RxNorm: 268965 1 Tablet(s) PO daily 10/21/192018 Inactive This refill negates all other refills of this medication levothyroxine 50 mcg tablet RxNorm: 022835 1 Tablet(s) PO daily 10/21/192018 Inactive This refill negates all other refills of this medication cetirizine 10 mg tablet RxNorm: 5215353 1 Tablet(s) PO daily 10/21/192018 Inactive This refill negates all other refills of this medication. Please do not auto refill Flintstones Complete (iron) 18 mg iron chewable tablet RxNorm: 1 Tablet(s) PO daily 10/21/192018 Inactive This refill negates all other refills of this medication buspirone 7.5 mg tablet RxNorm: 170891 1 Tablet(s) PO BID 10/12/192018 Inactive cetirizine 10 mg tablet RxNorm: 6544737 1 Tablet(s) PO daily 09/28/202018 Inactive Guaiasorb DM 10 mg-100 mg/5 mL oral liquid RxNorm: 923822 10 Milliliter(s) PO As needed every 4 hr 09/24/202018 Inactive Vicks Vaporub 4.7 %-1.2 %-2.6 % topical ointment RxNorm: 6463841 1 Application TOP TID 09/24/20 18 2018 Inactive levmetamfetamine 50 mg nasal inhaler RxNorm: 1 Unit(s) NASAL Q3-4H 09/24/20 18 2017 Inactive sertraline 50 mg tablet RxNorm: 676306 1 Tablet(s) PO daily 09/09/20 18 2018 Inactive Please note dose trazodone 50 mg tablet RxNorm: 186409 1 Tablet(s) PO QHS 09/06/20 18 2018 Inactive sertraline 50 mg tablet RxNorm: 539514 1 Tablet(s) PO daily 09/06/20 18 2017 Inactive amoxicillin 500 mg tablet RxNorm: 355830 1 Tablet(s) PO Q12H 08/31/20 18 2017 Inactive albuterol sulfate 2.5 mg/3 mL (0.083 %) solution for nebulization RxNorm: 029008 1 Vial INH QID 08/10/20 18 2018 Inactive 60/box. Please do not fill early. Please do not auto refill. Prozac 10 mg capsule RxNorm: 222460 1 Capsule(s) PO daily 08/09/20 18 2017 Inactive buspirone 7.5 mg tablet RxNorm: 221660 1 Tablet(s) PO BID 08/09/20 18 2018 Inactive gabapentin 300 mg capsule RxNorm: 031440 1 Capsule(s) PO TID as needed 08/01/20 18 2018 Inactive hydrochlorothiazide 12.5 mg tablet RxNorm: 762721 1 Tablet(s) PO QAM 08/01/20 18 2018 Inactive ranitidine 150 mg tablet RxNorm: 532464 1 Tablet(s) PO BID 08/01/20 18 2018 Inactive Macrobid 100 mg capsule RxNorm: 844822 1 Capsule(s) PO Q12H 06/21/20 18 2017 Inactive Singulair 10 mg tablet RxNorm: 457344 1 Tablet(s) PO daily 06/14/20 18 2018 Inactive Ventolin HFA 90 mcg/actuation aerosol inhaler RxNorm: 4832851 2 Puff(s) INH QID 06/14/20 18 2018 Inactive Singulair 10 mg tablet RxNorm: 013882 1 Tablet(s) PO daily 06/14/20 18 2017 Inactive buspirone 7.5 mg tablet RxNorm: 893969 1 Tablet(s) PO BID 06/14/20 18 2017 Inactive Prozac 10 mg capsule RxNorm: 944281 1 Capsule(s) PO daily 06/14/20 18 2017 Inactive Neilmed Pediatric Sinus Rinse Refill packet RxNorm: 1 Unit Dose NASAL PRN 05/31/20 18 2021 Inactive diclofenac sodium 75 mg tablet,delayed release RxNorm: 622459 1 Tablet(s) PO BID 05/31/20 18 2017 Inactive lisinopril 2.5 mg tablet RxNorm: 190876 1 Tablet(s) PO daily 05/31/20 18 2017 Inactive metoprolol succinate ER 50 mg tablet,extended release 24 hr RxNorm: 043858 1 Tablet(s) PO daily 05/31/20 18 2017 Inactive levothyroxine 50 mcg tablet RxNorm: 010764 1 Tablet(s) PO daily 05/31/20 18 2017 Inactive TRUEplus Lancets 30 gauge RxNorm: 1 Lancets Miscellaneous QAM 05/31/20 18 2017 Inactive 100/box Ventolin HFA 90 mcg/actuation aerosol inhaler RxNorm: 304270 2 Puff(s) INH QID 05/31/20 18 2017 Inactive Aleve 220 mg capsule RxNorm: 4908514 1 Capsule(s) PO BID 05/31/20 18 2018 Inactive ranitidine 150 mg tablet RxNorm: 409935 1 Tablet(s) PO BID 05/31/20 18 2017 Inactive gabapentin 300 mg capsule RxNorm: 617618 1 Capsule(s) PO TID as needed 05/31/20 18 2017 Inactive atorvastatin 20 mg tablet RxNorm: 957317 1 Tablet(s) PO QHS 05/31/20 18 2017 Inactive True Metrix Glucose Test Strip RxNorm: 1 Test Strips Miscellaneous QAM 05/31/20 18 2017 Inactive 50/container Calcium 600-D3 Plus 600 mg calcium-800 unit-50 mg tablet RxNorm: 1 Tablet(s) PO daily take an additonal tablet for itching. 05/31/20 18 2017 Inactive hydrochlorothiazide 12.5 mg tablet RxNorm: 730322 1 Tablet(s) PO QAM 05/31/20 18 2017 Inactive Flintstones Complete (iron) 18 mg iron chewable tablet RxNorm: 1 Tablet(s) PO daily 05/31/20 18 2017 Inactive d-mannose oral powder RxNorm: PO 18 2021 Inactive True Metrix Glucose Meter RxNorm: miscellaneous 08/17/20 19 2018 Inactive sertraline 50 mg tablet RxNorm: 035049 1 Tablet(s) PO daily 11/28/19 20 2019 Inactive loperamide 2 mg tablet RxNorm: 282772 oral 09/29/20 19 2018 Inactive Symbicort 160 mcg-4.5 mcg/actuation HFA aerosol inhaler RxNorm: 0203952 2 Puff(s) INH BID 08/17/202018 Inactive Medication Administered No Medication Administered data Procedures Procedure Codes Date Electrocardiogram CPT-4: 83744 05/14/2020 Tobacco Assessment/Screening CPT-4: TCA Fall Risk Assessment SNOMED CT: 84900947 4 CPT-4: DFRA 01/01/2020 Functional Assessment CPT-4: DFA 01/01/2020 [place] F[place] Assessment CPT-4: DSWA 11/04 Patient Health Questionnaire CPT-4: DPHQ [place] Fany Assessment CPT-4: DSWA 10/03 Hypertension CPT-4: HTN 10/17/2019 Fall Risk Assessment SNOMED CT: 67530309 4 CPT-4: DFRA 09/19/2019 Functional Assessment CPT-4: DFA 09/19/2019 Urinalysis, dip stick CPT-4: 57609 06/21/2019 Tobacco Assessment/Screening CPT-4: TCA Patient Health Questionnaire CPT-4: DPHQ AHA/REBECCA Classification Assessment CPT-4: DAHA 04/25/2019 Controlled Substance Report CPT-4: CTRSU 04/03 Urinalysis, dip stick CPT-4: 52477 03/28/2019 Urinalysis, dip stick CPT-4: 69300 03/28/2019 X0C-Kpfsvmihgxdwzuf CPT-4: 56595 Unknown D4R-Giwlrebmgijjzei CPT-4: 37322 Unknown D2L-Ltazczkwfuvetkw CPT-4: 25387 Unknown M8P-Krexvwosimsjppp CPT-4: 69604 Unknown Gynecology Referral SNOMED CT: 716413796 CPT-4: R14 Unknown Reason For Visit Reason For Visit Effective Dates Notes hypertension 07/22/2020 diabetes mellitus 07/22/2020 mole check 07/22/2020 Interim health update 07/22/2020 Encounters Encounter Performer Location Location Address Codes Magdi e ([id number]) (EST PT) PROBLEM FOCUSED TELEHEALTH VISIT Diagnosis: Type 2 diabetes mellitus with peripheral neuropathy[ICD10: E11.42] Diagnosis: Essential (primary) hypertension[ICD1 0: I10] Anna Culver [place] Office [address] [facility] [address] [place] [address] CPT-4: 01860 07/22/2020 Plan of Care Planned Activity Notes Codes Status Date Visit Plan: M25.531-719.43 Right wrist pain routine follow up with Dr Watosn-orthopedics next appt 07/14/2020 quit outpatient PT as didn't feel it was helpful MRI with contrast per orthopedics completed 06/30/2020 E11.42-250.60 Type 2 diabetes mellitus with peripheral neuropathy testing BID and PRN if feeling symptomatic 92-159 patient reports feeling symptomatic for BS >100, prefers to remain mid 80's-99 in the morning and prefers to stay <119 Metformin 500mg BID may increase in 2 weeks if BS remain elevated received new monitor Biot[employer] through [employer]-participant of [employer] -will send all diabetic supplies to patient 04/14/2020 hemoglobin 5.6 10/17/2019 Hemoglobin A1C 6.0 07/04/2019 Hgb A1C 5.6 10/17/2019 [place] Fany 04/11-instructed on good daily foot care [...] anxiety and depressed mood routine follow up [place] [facility] [place] E03.9-244.9 Hypothyroidism, unspecified cont levothyroxine E78.5-272.4 Hyperlipidemia, [...] new appt for pap in June 2020-[facility]-reports pap negative-records requested Z01.89-V72.85 Encounter for screening [...] visit verbalized understanding of all above topics. 07/22/2020 Patient Education: Patient Medication Summary Completed 07/22/2020 Appointment: Anna Culver WPtel: [address] [place] [address] ETV 07/08/2020 Appointment: Gianna [place]: [id number] [place] ECHO 07/02/2020 Appointment: Anna Culver WPtel: [address] [place] [address] E452 06/11/2020 Appointment: Anna Culver WPtel: [address] [place] [address] [place] E452 05/14/2020 Appointment: Anna Culver WPtel: [address] [place] [address] [place] E452 04/17/2020 Appointment: Anna Culver WPtel: [address] [place] [address] [place] E452 03/21/2020 Appointment: Anna Culver WPtel: [address] [place] [address] [place] E452 02/14/2020 Appointment: Anna Culver WPtel: [address] [place] [address] [place] E452 01/24/2020 Appointment: Anna Culver WPtel: [address] [place] [address] [place] E452 01/01/2020 Appointment: Anna Culver WPtel: [phone] E452 11/28/2019 Appointment: Anna Culver WPtel: [address] [place] [address] E452 10/17/2019 Appointment: Anna Culver WPtel: [address] [place] [address] E452 09/19/2019 Appointment: Sudha Hernadez WPtel: [address] [place] [address] b [id number] E452 07/04/2019 Appointment: Sudha Hernadez WPtel: [facility] [id number] E452 06/21/2019 Appointment: Charlene Oropeza WPtel: [facility] [id number] E452 05/24/2019 Appointment: Mallory Delgado E452 04/27/2019 Appointment: Charlene Oropeza WPtel: [address] [facility] [id number] E452 04/25/2019 Appointment: Rasta Palafox WPtel: [address] [facility] [id number] E452 03/28/2019 Appointment: Rasta Palafox WPtel: [address] [facility] b [id number] E452 02/14/2019 Appointment: Rasta Palafox WPtel: [address] [facility] b [id number] E452 01/31/2019 Appointment: Rasta Palafox WPtel: [address] [facility] [id number] E420 12/27/2018 Referral: Pending Gynecology Referral Information Referral Processed Referral: Pending Pulmonolog y Referral Information Referral Processed Referral: Pending Psychiatry Referral Information Referral Initiated Referral: Pending Respirator y Services Referral Information Referral Initiated Referral: Pending Ophthalmology Referral Information Referral Initiated Referral: [facility] WPtel: [address] System Software Developer placed a call out to the patient to notify her that it has been recommended that she be seen by a urologist. Patient agreed to be seen, does not have a provider of choice and no transportation issues. System Software Developer faxed referral and clinical notes to [facility] in [place], [place] near the patient's home. Patient to [...] seen and prefers a provider in the [place] or [place] area. System Software Developer placed a call out to everyone listed in the area and the only location that was able to accept the patient's insurance was [address] [phone] and spoke with Maylin. Maylin asked that the patient's referral, face sheet and visit notes be faxed to . System Software Developer faxed over requested documents. Patient appointment confirmation letter generated and mailed to her home address. Patient to call to schedule an appointment. Processed Referral: [facility] WPtel: [address] [facility] [address] [place], [place] [id number] Patient notified that it has been advised that she be seen by Neurology. Patient agreed to be seen and prefers to be seen by a provider in the [place], [place] area. Patient denies any concerns with transportation, and prefers to schedule her own appointment. System Software Developer placed a call out to [facility] and spoke with Neeraj Mcfarland: who confirmed that their office is able to accept new patients and the patient's insurance. After confirming the providers fax number, check writer salesperson faxed over the patient's referral, and most [...] testing BID and PRN if feeling symptomatic [id number] patient reports feeling symptomatic for BS >100, prefers to remain mid 80's-99 in the morning and prefers to stay <119 Metformin 500mg BID may increase in 2 weeks if BS remain elevated received new monitor [employer] through [employer]-participant of [place] on demand -will send all diabetic supplies to patient 04/14/2020 hemoglobin 5.6; 10/17/2019 Hemoglobin A1C 6.0; 07/04/2019 Hgb A1C 5.6 10/17/2019 [place] [facility] 04/11-instructed on good daily foot care [...] anxiety and depressed mood routine follow up [place] at [place] E03.9-244.9 Hypothyroidism, unspecified cont levothyroxine E78.5-272.4 Hyperlipidemia, [...] new appt for pap in June 2020-[facility]-reports pap negative-records requested Z01.89-V72.85 Encounter for screening [...] visit verbalized understanding of all above topics. 07/22/2020 Medical Equipment No Medical Equipment data Advance Directives No Advance Directive data
--- OUTSIDE RECORDS SUMMARY | 2023-12-07 02:13 | XMS_ITS | CCD ---
Author Name Leena Culver NP Address [address] [place] [address] [place] [id number] Phone Organization [id number] Phone Care Team Providers Care Marketing Information Manager Name Role Phone Anna Culver NP Primary Care Provider Unav ailable Unavailable Chronic Care Management Unavaila ble Summary Purpose DataExchange Insurance Providers Payer name Policy type / Coverage type Covered republican ID Effective Begin Date Effective End Date SUKI MAYO [id number] Unknown Unknown Family history Mother Diagnosis Age [...] Unknown Disability 05/31/[address]: 358003889 Has never s moked or chewed tobacco 05/31/[address]: 870764911 Never drinks alco hol 05/31/2018 Has the [...] neuropathy ICD-10: E11.42 ICD-9: 250.60 11/28/2019 Active Essential (primary) hypertension ICD-10: I10 ICD-9: [...] use ICD-10: Z01.89 ICD-9: V72.85 01/01/2020 Active [place] eye ICD-10: H10.029 ICD-9: 372.03 12/29/2019 Active [...] ICD-10: UXZ.01 ICD-9: XZ0.1 04/27/2019 Active 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 ICD-10: Z79.899 ICD-9: [...] Headache ICD-10: R51 ICD-9: 784.0 10/03/2018 Active [facility] (current) use of non-steroidal anti-inflammatories (NSAID) ICD-10: Z79.1 ICD-9: V58.64 06/13/2018 Active Medications Medication Codes Instructions Start Date Stop Date Status Fill Instructions metformin 1,000 mg tablet RxNorm: 787747 1 Tablet(s) Oral two times a day 08/19/20 20 2020 Inactive start on September 11, 2020 metformin 500 mg tablet RxNorm: 156303 1 Tablet(s) Oral two times a day take with 500mg to equal 1000mg 08/19/20 20 2019 Inactive gabapentin 300 mg capsule RxNorm: 380508 TAKE 1 CAPSULE BY MOUTH THREE TIMES DAILY 07/11/202020 Inactive cetirizine 10 mg tablet RxNorm: 0624072 TAKE (1) TABLET BY MOUTH DAILY 07/11/20 20 2020 Inactive metformin 500 mg tablet RxNorm: 941013 1 Tablet(s) Oral two times a day 07/08/20 20 2019 Inactive loperamide 2 mg tablet RxNorm: 991407 1 Tablet(s) Oral as needed take one tablet after each loose stool, maximum of 8 tablets in 24 hours 06/24/202021 Inactive Sudafed 12 Hour 120 mg tablet,extended release RxNorm: 5317251 TAKE 1 TABLET BY MOUTH EVERY 12 HOURS NEEDED 06/11/20 20 2019 Inactive hydrochlorothiazide 25 mg tablet RxNorm: 369653 TAKE (1) TABLET BY MOUTH EVERY DAY 06/11/20 20 2019 Inactive omeprazole 20 mg capsule,delayed release RxNorm: 119964 TAKE 1 CAPSULE BY MOUTH EVERY DAY 05/14/20 20 2020 Inactive metformin 500 mg tablet RxNorm: 992445 1 Tablet(s) Oral every day 05/12/20 20 2019 Inactive True Metrix Glucose Test Strip RxNorm: 1 Test Strips Miscellaneous two times a day as needed 04/17/20 No Stop Date Active metformin 500 mg tablet RxNorm: 910146 1 Tablet(s) Oral every day 04/17/20 20 2019 Inactive diclofenac sodium 75 mg tablet,delayed release RxNorm: 748493 1 Tablet(s) PO BID 04/14/20 20 2021 Inactive This refill negates all other refills of this medication Sudafed 12 Hour 120 mg tablet,extended release RxNorm: 8922115 TAKE 1 TABLET BY MOUTH EVERY 12 HOURS NEEDED 03/14/20 20 2019 Inactive True Metrix Glucose Test Strip RxNorm: 1 Test Strips Miscellaneous every morning 03/13/20 20 2019 Inactive 100/container True Metrix Glucose Test Strip RxNorm: 1 Test Strips Miscellaneous QAM 02/22/20 20 2019 Inactive 100/container loperamide 2 mg tablet RxNorm: 238298 1 Tablet(s) Oral as needed take one tablet after each loose stool, maximum of 8 tablets in 24 hours 02/22/20 20 2019 Inactive levothyroxine 50 mcg tablet RxNorm: 374552 1 Tablet(s) PO daily 01/17/20 20 2020 Inactive cetirizine 10 mg tablet RxNorm: 8519977 1 Tablet(s) PO daily 01/17/20 20 2019 Inactive loperamide 2 mg tablet RxNorm: 353663 1 Tablet(s) Oral as needed take one tablet after each loose stool, maximum of 8 tablets in 24 hours 01/17/20 20 2019 Inactive quetiapine 100 mg tablet RxNorm: 915165 1 Tablet(s) Oral every night at bedtime 01/17/20 20 2019 Inactive gabapentin 300 mg capsule RxNorm: 087687 1 Capsule(s) PO TID 01/17/20 20 2019 Inactive lisinopril 2.5 mg tablet RxNorm: 498856 1 Tablet(s) PO daily 01/15/20 20 2020 Inactive Singulair 10 mg tablet RxNorm: 759542 1 Tablet(s) PO daily 01/15/20 20 2020 Inactive levothyroxine 50 mcg tablet RxNorm: 636507 1 Tablet(s) PO daily 01/15/20 20 2019 Inactive gabapentin 300 mg capsule RxNorm: 568102 1 Capsule(s) PO TID 01/15/20 20 2019 Inactive cetirizine 10 mg tablet RxNorm: 1015818 1 Tablet(s) PO daily 01/15/20 20 2019 Inactive gentamicin 0.3 % eye drops RxNorm: 394171 1 Drop(s) ophthalmic (eye) four times a day 12/29/19 20 2019 Inactive gentamicin 0.3 % eye drops RxNorm: 633274 1 Drop(s) ophthalmic (eye) four times a day 12/29/19 20 2019 Inactive gentamicin 0.3 % eye drops RxNorm: 595780 1 Drop(s) ophthalmic (eye) four times a day 12/29/19 20 2019 Inactive hydrochlorothiazide 25 mg tablet RxNorm: 174232 1 Tablet(s) Oral every day 12/21/19 20 2019 Inactive Sudafed 12 Hour 120 mg tablet,extended release RxNorm: 1301307 TAKE (1) TABLET BY MOUTH EVERY 12 HOURS NEEDED 12/21/19 20 2019 Inactive loperamide 2 mg tablet RxNorm: 160384 1 Tablet(s) Oral as needed take one tablet after each loose stool, maximum of 8 tablets in 24 hours 12/11/19 20 2019 Inactive loperamide 2 mg tablet RxNorm: 811595 1 Tablet(s) Oral as needed take one tablet after each loose stool, maximum of 8 tablets in 24 hours 12/11/19 20 2019 Inactive atorvastatin 40 mg tablet RxNorm: 084637 1 Tablet(s) Oral every day 11/29/19 20 2020 Inactive quetiapine 100 mg tablet RxNorm: 047964 1 Tablet(s) Oral every night at bedtime 11/28/19 20 2019 Inactive sertraline 100 mg tablet RxNorm: 837364 1 Tablet(s) Oral 11/28/19 20 2019 Inactive omeprazole 20 mg capsule,delayed release RxNorm: 025495 1 Capsule(s) Oral every day 11/20/19 20 2019 Inactive amoxicillin 250 mg capsule RxNorm: 106307 1 Capsule(s) Oral three times a day 11/07/19 20 2019 Inactive multivitamin with iron-mineral tablet RxNorm: 1 Tablet(s) Oral every day 10/29/19 20 2021 Inactive cetirizine 10 mg tablet RxNorm: 8739707 1 Tablet(s) PO daily 10/20/19 20 2019 Inactive This refill negates all other refills of this medication. Please do not auto refill Singulair 10 mg tablet RxNorm: 473393 1 Tablet(s) PO daily 10/20/192019 Inactive This refill negates all other refills of this medication gabapentin 300 mg capsule RxNorm: 833062 1 Capsule(s) PO TID 10/20/192019 Inactive lisinopril 2.5 mg tablet RxNorm: 759889 1 Tablet(s) PO daily 10/20/19 20 2019 Inactive levothyroxine 50 mcg tablet RxNorm: 893842 1 Tablet(s) PO daily 10/20/192019 Inactive This refill negates all other refills of this medication fenugreek seed extract 500 mg capsule RxNorm: 1 Capsule(s) Oral three times a day 10/17/19 20 2021 Inactive hydrochlorothiazide 25 mg tablet RxNorm: 896844 1 Tablet(s) Oral every day 10/17/19 20 2019 Inactive Alcohol Prep Pads RxNorm: 266361 1 Patch TOP QAM 10/16/19 20 2020 Inactive loperamide 2 mg tablet RxNorm: 299971 1 Tablet(s) Oral as needed take one [...] 2019 Inactive hydrochlorothiazide 25 mg tablet RxNorm: 810371 1 Tablet(s) Oral every day 09/19/20 19 2019 Inactive Sudafed 12 Hour 120 mg tablet,extended release RxNorm: 1198748 1 Tablet(s) Oral every 12 hours as needed 09/11/20 19 2018 Inactive omeprazole 20 mg capsule,delayed release RxNorm: 459536 1 Capsule(s) Oral every day 09/07/20 19 2019 Inactive Sudafed 12 Hour 120 mg tablet,extended release RxNorm: 0059721 1 Tablet(s) Oral every 12 hours as needed 09/04/20 19 2018 Inactive pantoprazole 40 mg tablet,delayed release RxNorm: 453895 1 Tablet(s) Oral every day 08/24/20 19 2018 Inactive discontinue any other H2Blkr. and PPI albuterol sulfate 2.5 mg/3 mL (0.083 %) solution for nebulization RxNorm: 386338 1 Vial Inhalation every four hours as needed as needed for dyspnea 08/17/20 19 2019 Inactive 60/box. This refill negates all other refills of this medication. Please do not fill early. Please do not auto refill. Symbicort 160 mcg-4.5 mcg/actuation HFA aerosol inhaler RxNorm: 1740342 2 Puff(s) INH BID 08/17/20 19 No Stop Date Active Alcohol Prep Pads RxNorm: 124260 1 Patch TOP QAM 08/17/20 19 2019 Inactive Ventolin HFA 90 mcg/actuation aerosol inhaler RxNorm: 980331 2 Puff(s) INH QID 08/09/20 19 2019 Inactive Please do not fill early. Please do not auto refill. This refill negates all other refills of this medication True Metrix Glucose Test Strip RxNorm: 1 Test Strips Miscellaneous QAM 08/09/20 19 2019 Inactive 100/container atorvastatin 40 mg tablet RxNorm: 275598 1 Tablet(s) Oral every day 07/04/20 19 2019 Inactive levmetamfetamine 50 mg nasal inhaler RxNorm: 1 Unit(s) NASAL Q3-4H Do not use more than every 3 hours or 8 times/24hours 06/26/20 19 2021 Inactive Please do not auto refill. This refill negates all other refills of this medication buspirone 7.5 mg tablet RxNorm: 592375 1 Tablet(s) PO BID 06/26/20 19 2020 Inactive This refill negates all other refills of this medication hydrochlorothiazide 12.5 mg tablet RxNorm: 406256 1 Tablet(s) PO QAM 06/26/20 19 2019 Inactive Ventolin HFA 90 mcg/actuation aerosol inhaler RxNorm: 832780 2 Puff(s) INH QID 06/26/20 19 2018 Inactive Please do not fill early. Please do not auto refill. This refill negates all other refills of this medication Singulair 10 mg tablet RxNorm: 700989 1 Tablet(s) PO daily 06/26/20 19 2019 Inactive This refill negates all other refills of this medication cetirizine 10 mg tablet RxNorm: 0525152 1 Tablet(s) PO daily 06/26/20 19 2019 Inactive This refill negates all other refills of this medication. Please do not auto refill levothyroxine 50 mcg tablet RxNorm: 700323 1 Tablet(s) PO daily 06/26/20 19 2019 Inactive This refill negates all other refills of this medication diclofenac sodium 75 mg tablet,delayed release RxNorm: 072177 1 Tablet(s) PO BID 06/26/20 19 2019 Inactive This refill negates all other refills of this medication ranitidine 150 mg tablet RxNorm: 069323 1 Tablet(s) PO BID 06/26/20 19 2018 Inactive This refill negates all other refills of this medication Calcium 600-D3 Plus (mag-zinc) 600 mg calcium-800 unit-50 mg tablet RxNorm: 1 Tablet(s) PO daily take an additonal tablet for itching. 06/26/20 19 2018 Inactive This refill negates all other refills of this medication albuterol sulfate 2.5 mg/3 mL (0.083 %) solution for nebulization RxNorm: 852701 1 Vial INH QID 06/26/20 19 2018 Inactive 60/box. This refill negates all other refills of this medication. Please do not fill early. Please do not auto refill. lisinopril 2.5 mg tablet RxNorm: 262685 1 Tablet(s) PO daily 06/21/20 19 2019 Inactive gabapentin 300 mg capsule RxNorm: 259011 1 Capsule(s) PO TID 06/21/20 19 2019 Inactive atorvastatin 20 mg tablet RxNorm: 646223 1 Tablet(s) PO QHS 06/07/20 19 2018 Inactive This refill negates all other refills of this medication TRUEplus Lancets 30 gauge RxNorm: 1 Lancets Miscellaneous QAM 05/29/20 19 2018 Inactive 100/box gabapentin 300 mg capsule RxNorm: 606654 1 Capsule(s) PO TID 05/03/20 19 2018 Inactive Flintstones Complete (iron) 18 mg iron chewable tablet RxNorm: 1 Tablet(s) PO daily 04/04/20 19 2021 Inactive This refill negates all other refills of this medication gabapentin 300 mg capsule RxNorm: 877647 1 Capsule(s) PO TID as needed 02/01/20 19 2018 Inactive True Metrix Glucose Test Strip RxNorm: 1 Test Strips Miscellaneous QA 02/01/20 19 2018 Inactive 100/container Alcohol Prep Pads RxNorm: 447877 1 Patch TOP QAM 02/01/20 19 2018 Inactive TRUEplus Lancets 30 gauge RxNorm: 1 Lancets Miscellaneous QAM 02/01/20 19 2018 Inactive 100/box lisinopril 2.5 mg tablet RxNorm: 835398 1 Tablet(s) PO daily 12/28/19 19 2018 Inactive ranitidine 150 mg tablet RxNorm: 971141 1 Tablet(s) PO BID 10/21/192018 Inactive This refill negates all other refills of this medication albuterol sulfate 2.5 mg/3 mL (0.083 %) solution for nebulization RxNorm: 856029 1 Vial INH QID 10/21/192018 Inactive 60/box. [...] this medication gabapentin 300 mg capsule RxNorm: 283367 1 Capsule(s) PO TID as needed 10/21/19 19 2018 Inactive atorvastatin 20 mg tablet RxNorm: 851720 1 Tablet(s) PO QHS 10/21/192018 Inactive This refill negates all other refills of this medication trazodone 50 mg tablet RxNorm: 373039 1 Tablet(s) PO QHS 10/21/19 19 2018 Inactive This refill negates all other refills of this medication Ventolin HFA 90 mcg/actuation aerosol inhaler RxNorm: 232461 2 Puff(s) INH QID 10/21/192018 Inactive Please do not fill early. Please do not auto refill. This refill negates all other refills of this medication Calcium 600-D3 Plus 600 mg calcium-800 unit-50 mg tablet RxNorm: 1 Tablet(s) PO daily take an additonal tablet for itching. 10/21/19 19 2018 Inactive This refill negates all other refills of this medication Singulair 10 mg tablet RxNorm: 431150 1 Tablet(s) PO daily 10/21/192018 Inactive This refill negates all other refills of this medication buspirone 7.5 mg tablet RxNorm: 115143 1 Tablet(s) PO BID 10/21/19 19 2018 Inactive This refill negates all other refills of this medication diclofenac sodium 75 mg tablet,delayed release RxNorm: 209780 1 Tablet(s) PO BID 10/21/19 19 2018 Inactive This refill negates all other refills of this medication hydrochlorothiazide 12.5 mg tablet RxNorm: 785854 1 Tablet(s) PO QAM 10/21/19 19 2018 Inactive metoprolol succinate ER 50 mg tablet,extended release 24 hr RxNorm: 116247 1 Tablet(s) PO daily 10/21/19 19 2018 Inactive This refill negates all other refills of this medication levothyroxine 50 mcg tablet RxNorm: 033454 1 Tablet(s) PO daily 10/21/19 19 2018 Inactive This refill negates all other refills of this medication cetirizine 10 mg tablet RxNorm: 5927666 1 Tablet(s) PO daily 10/21/192018 Inactive This refill negates all other refills of this medication. Please do not auto refill Flintstones Complete (iron) 18 mg iron chewable tablet RxNorm: 1 Tablet(s) PO daily 10/21/192018 Inactive This refill negates all other refills of this medication buspirone 7.5 mg tablet RxNorm: 691095 1 Tablet(s) PO BID 10/12/192018 Inactive cetirizine 10 mg tablet RxNorm: 8403298 1 Tablet(s) PO daily 09/28/202018 Inactive Guaiasorb DM 10 mg-100 mg/5 mL oral liquid RxNorm: 930974 10 Milliliter(s) PO As needed every 4 hr 09/24/202018 Inactive Vicks Vaporub 4.7 %-1.2 %-2.6 % topical ointment RxNorm: 8108642 1 Application TOP TID 09/24/20 18 2018 Inactive levmetamfetamine 50 mg nasal inhaler RxNorm: 1 Unit(s) NASAL Q3-4H 09/24/20 18 2017 Inactive sertraline 50 mg tablet RxNorm: 461974 1 Tablet(s) PO daily 09/09/20 18 2018 Inactive Please note dose trazodone 50 mg tablet RxNorm: 279229 1 Tablet(s) PO QHS 09/06/20 18 2018 Inactive sertraline 50 mg tablet RxNorm: 056559 1 Tablet(s) PO daily 09/06/20 18 2017 Inactive amoxicillin 500 mg tablet RxNorm: 509045 1 Tablet(s) PO Q12H 08/31/20 18 2017 Inactive albuterol sulfate 2.5 mg/3 mL (0.083 %) solution for nebulization RxNorm: 460373 1 Vial INH QID 08/10/20 18 2018 Inactive 60/box. Please do not fill early. Please do not auto refill. Prozac 10 mg capsule RxNorm: 229732 1 Capsule(s) PO daily 08/09/20 18 2017 Inactive buspirone 7.5 mg tablet RxNorm: 640986 1 Tablet(s) PO BID 08/09/20 18 2018 Inactive gabapentin 300 mg capsule RxNorm: 266362 1 Capsule(s) PO TID as needed 08/01/20 18 2018 Inactive hydrochlorothiazide 12.5 mg tablet RxNorm: 409121 1 Tablet(s) PO QAM 08/01/20 18 2018 Inactive ranitidine 150 mg tablet RxNorm: 651868 1 Tablet(s) PO BID 08/01/20 18 2018 Inactive Macrobid 100 mg capsule RxNorm: 270409 1 Capsule(s) PO Q12H 06/21/20 18 2017 Inactive Singulair 10 mg tablet RxNorm: 640151 1 Tablet(s) PO daily 06/14/20 18 2018 Inactive Ventolin HFA 90 mcg/actuation aerosol inhaler RxNorm: 3239834 2 Puff(s) INH QID 06/14/20 18 2018 Inactive Singulair 10 mg tablet RxNorm: 432940 1 Tablet(s) PO daily 06/14/20 18 2017 Inactive buspirone 7.5 mg tablet RxNorm: 274443 1 Tablet(s) PO BID 06/14/20 18 2017 Inactive Prozac 10 mg capsule RxNorm: 237186 1 Capsule(s) PO daily 06/14/20 18 2017 Inactive Neilmed Pediatric Sinus Rinse Refill packet RxNorm: 1 Unit Dose NASAL PRN 05/31/20 18 2021 Inactive diclofenac sodium 75 mg tablet,delayed release RxNorm: 112707 1 Tablet(s) PO BID 05/31/20 18 2017 Inactive lisinopril 2.5 mg tablet RxNorm: 992040 1 Tablet(s) PO daily 05/31/20 18 2017 Inactive metoprolol succinate ER 50 mg tablet,extended release 24 hr RxNorm: 254097 1 Tablet(s) PO daily 05/31/20 18 2017 Inactive levothyroxine 50 mcg tablet RxNorm: 841853 1 Tablet(s) PO daily 05/31/20 18 2017 Inactive TRUEplus Lancets 30 gauge RxNorm: 1 Lancets Miscellaneous QAM 05/31/20 18 2017 Inactive 100/box Ventolin HFA 90 mcg/actuation aerosol inhaler RxNorm: 721208 2 Puff(s) INH QID 05/31/20 18 2017 Inactive Aleve 220 mg capsule RxNorm: 9038485 1 Capsule(s) PO BID 05/31/20 18 2018 Inactive ranitidine 150 mg tablet RxNorm: 104829 1 Tablet(s) PO BID 05/31/20 18 2017 Inactive gabapentin 300 mg capsule RxNorm: 756342 1 Capsule(s) PO TID as needed 05/31/20 18 2017 Inactive atorvastatin 20 mg tablet RxNorm: 222305 1 Tablet(s) PO QHS 05/31/20 18 2017 Inactive True Metrix Glucose Test Strip RxNorm: 1 Test Strips Miscellaneous QAM 05/31/20 18 2017 Inactive 50/container Calcium 600-D3 Plus 600 mg calcium-800 unit-50 mg tablet RxNorm: 1 Tablet(s) PO daily take an additonal tablet for itching. 05/31/20 18 2017 Inactive hydrochlorothiazide 12.5 mg tablet RxNorm: 552638 1 Tablet(s) PO QAM 05/31/20 18 2017 Inactive Flintstones Complete (iron) 18 mg iron chewable tablet RxNorm: 1 Tablet(s) PO daily 05/31/20 18 2017 Inactive d-mannose oral powder RxNorm: PO 18 2021 Inactive True Metrix Glucose Meter RxNorm: miscellaneous 08/17/20 19 2018 Inactive sertraline 50 mg tablet RxNorm: 353725 1 Tablet(s) PO daily 11/28/19 20 2019 Inactive loperamide 2 mg tablet RxNorm: 936811 oral 09/29/20 19 2018 Inactive Symbicort 160 mcg-4.5 mcg/actuation HFA aerosol inhaler RxNorm: 5182846 2 Puff(s) INH BID 08/17/20 19 2018 Inactive Medication Administered No Medication Administered data Procedures Procedure Codes Date Patient Health Questionnaire CPT-4: DPHQ Patient Health Questionnaire Little interest or pleasure in doing things?/0 = Not at all, Feeling down, depressed or hopeless?/1 = Several days, Trouble falling or staying asleep, [...] for depression- NO PLAN NEEDED CPT-4: DPHQUnknown 08/19/2020 Functional Assessment ADLs - Patient needs direct assistance, cuing, or supervision, to perform the following safely:/*No assistance, cuing, or supervision needed, IADLs - Patient needs direct assistance, cuing, or supervision, to perform the following safely:/transportation CPT-4: DFAUnknown 08/19/2020 Electrocardiogram CPT-4: 27704 05/14/2020 Tobacco Assessment/Screening CPT-4: TCA Fall Risk Assessment SNOMED CT: 62877795 4 CPT-4: DFRA 01/01/2020 Functional Assessment CPT-4: DFA 01/01/2020 Sterling Fany Assessment CPT-4: DSWA 11/04 Patient Health Questionnaire CPT-4: DPHQ Sterling Fany Assessment CPT-4: DSWA 10/03 Hypertension CPT-4: HTN 10/17/2019 Fall Risk Assessment SNOMED CT: 69156018 4 CPT-4: DFRA 09/19/2019 Functional Assessment CPT-4: DFA 09/19/2019 Urinalysis, dip stick CPT-4: 47635 06/21/2019 Tobacco Assessment/Screening CPT-4: TCA Patient Health Questionnaire CPT-4: DPHQ AHA/REBECCA Classification Assessment CPT-4: DAHA 04/25/2019 Controlled Substance Report CPT-4: CTRSU 04/03 Urinalysis, dip stick CPT-4: 20216 03/28/2019 Urinalysis, dip stick CPT-4: 63837 03/28/2019 U7P-Xvhoybanepwzmbw CPT-4: 01598 Unknown A3A-Qrxosmecbeskboj CPT-4: 12517 Unknown U7Z-Vcnvpvxtjeahxqa CPT-4: 83580 Unknown B4Y-Pyaruwguktggoru CPT-4: 57652 Unknown Gynecology Referral SNOMED CT: 801262612 CPT-4: R14 Unknown Reason For Visit Reason For Visit Effective Dates Notes hypertension 08/19/2020 diabetes mellitus 08/19/2020 mole check 08/19/2020 Interim health update 08/19/2020 Encounters Encounter Performer Location Location Address Codes Magdi e ([id number]) (EST PT) EXPANDED PROBLEM FOCUSED TELEHEALTH VISIT Diagnosis: Type 2 diabetes mellitus with peripheral neuropathy[ICD10: E11.42] Diagnosis: Adjustment disorder with mixed anxiety and depressed mood[ICD10: F43.23] Diagnosis: Polyneuropathy, unspecified[ICD10 : G62.9] Anna Culver [place] [facility] [address] [id number] CPT-4: 16194 08/19/2020 Plan of Care Planned Activity Notes Codes Status Date Visit Plan: M25.531-719.43 Right wrist pain routine follow up with Dr Watson-orthopedics last appt 07/14/2020-record requested quit outpatient PT as didn't feel it was helpful MRI with contrast per orthopedics completed 06/30/2020- per patiet revealed torn ligament to right wrist-record requested in process of being referred to hand medical insurance coding specialist-will send information when available E11.42-250.60 Type 2 diabetes mellitus with peripheral neuropathy testing BID and PRN if feeling symptomatic 125-132 patient reports feeling symptomatic for BS >100, Metformin increased to 1000mg BID received new monitor [employer] through [employer]-participant of [employer] on demand -will send all diabetic supplies to patient 04/14/2020 hemoglobin 5.6 10/17/2019 Hemoglobin A1C 6.0 07/04/2019 Hgb A1C 5.6 10/17/2019 Sterling Fany 04/11-instructed on good daily foot care [...] anxiety and depressed mood routine follow up [place] [facility] [place] 08/19/2020 PHQ 9 Scoe[place] 1, admits to [...] new appt for pap in June 2020-[facility]-reports pap negative-records requested Z01.89-V72.85 Encounter for screening [...] verbalized understanding of all above topics. 08/19/2020 Patient Education: Patient Medication Summary Completed 08/19/2020 Patient Education: Hypertension Completed 08/19/2020 Patient Education: Diabetes Complete d 08/19/2020 Appointment: Anna Culver WPtel: [address] [place] [address] ETV 07/22/2020 Appointment: Anna Culver WPtel: [address] [place] [address] ETV 07/08/2020 Appointment: Gianna Birmingham: [address] [place] ECHO 07/02/2020 Appointment: Anna Culver WPtel: [address] [place] [address] E452 06/11/2020 Appointment: Anna Culver WPtel: [address] [place] [address] E452 05/14/2020 Appointment: Anna Culver WPtel: [address] [place] [address] E452 04/17/2020 Appointment: Anna Culver WPtel: [address] [place] [address] [place] E452 03/21/2020 Appointment: Anna Culver WPtel: [address] [place] [address] E452 02/14/2020 Appointment: Anna Culver WPtel: [address] [place] [address] E452 01/24/2020 Appointment: Anna Culver WPtel: [address] [place] [address] E452 01/01/2020 Appointment: Anna Culver WPtel: [phone] [place] [address] E452 11/28/2019 Appointment: Anna Culver WPtel: [phone] E452 10/17/2019 Appointment: Anna Culver WPtel: [address] [place] [address] E452 09/19/2019 Appointment: Sudha Hernadez WPtel: [address] [place] [address] [id number] E452 07/04/2019 Appointment: Sudha Hernadez WPtel: [address] [place] [address] [id number] E452 06/21/2019 Appointment: Charlene Oropeza WPtel: [address] [id number] E452 05/24/2019 Appointment: Mallory Delgado E452 04/27/2019 Appointment: Charlene Oropeza WPtel: [address] [id number] E452 04/25/2019 Appointment: Rasta Palafox WPtel: [address] [place] [address] [id number] E452 03/28/2019 Appointment: Rasta Palafox WPtel: [address] [id number] E452 02/14/2019 Appointment: Rasta Palafox WPtel: [address] [id number] E452 01/31/2019 Appointment: Rasta Palafox WPtel: [address] [id number] E420 12/27/2018 Referral: Pending Gynecology Referral Information Referral Processed Referral: Pending Pulmonolog y Referral Information Referral Processed Referral: Pending Psychiatry Referral Information Referral Initiated Referral: Pending Respirator y Services Referral Information Referral Initiated Referral: Pending Ophthalmology Referral Information Referral Initiated Referral: [facility] WPtel: [address] [employer] placed a call out to the patient to notify her that it has been recommended that she be seen by a urologist. Patient agreed to be seen, does not have a provider of choice and no transportation issues. [employer] faxed referral and clinical notes to [facility] in [place], [place] near the patient's home. Patient to [...] seen and prefers a provider in the [place] or [place] area. [employer] placed a call out to everyone listed in the area and the only location that was able to accept the patient's insurance was [address] [id number] and spoke with Maylin. Maylin asked that the patient's referral, face sheet and visit notes be faxed to . [employer] faxed over requested documents. Patient appointment confirmation letter generated and mailed to her home address. Patient to call to schedule an appointment. Processed Referral: [facility]: [address] [facility] [address] [place] [address] Patient notified that it has been advised that she be seen by Neurology. Patient agreed to be seen and prefers to be seen by a provider in the [place], [place] area. Patient denies any concerns with transportation, and prefers to schedule her own appointment. [employer] placed a call out to [facility] and spoke with Neeraj Mcfarland: who confirmed that their office is able to accept new patients and the patient's insurance. After confirming the providers fax number, customs entry writer faxed over the patient's referral, and [...] in process of being referred to hand medical insurance coding specialist-will send information when available [id number] Type 2 diabetes mellitus with peripheral neuropathy testing BID and PRN if feeling symptomatic 125-132 patient reports feeling symptomatic for BS >100, Metformin increased to 1000mg BID received new monitor [employer] through [employer]-participant of [employer] on demand -will send all diabetic supplies to patient 04/14/2020 hemoglobin 5.6; 10/17/2019 Hemoglobin A1C 6.0; 07/04/2019 Hgb A1C 5.6 10/17/2019 Sterling Fany 04/11-instructed on good daily foot care [...] anxiety and depressed mood routine follow up [place] [facility] 08/19/2020 PHQ 9 [place] 1, admits to [...] new appt for pap in June 2020-[facility]-reports pap negative-records requested Z01.89-[id number] Encounter for screening [...]
--- OUTSIDE RECORDS SUMMARY | 2023-12-07 02:13 | XMS_ITS | CCD ---
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 Name Role Phone Palomo KING, Anna Primary Care Provider Unav ailable Unavailable Chronic Care Management Unavaila ble Summary Purpose DataExchange Insurance Providers Payer name Policy type / Coverage type Covered constitution party ID Effective Begin Date Effective End Date [employer] [facility] [id number] Unknown Unknown Family history Mother Diagnosis Age [...] Unknown Disability 05/31/[address]: 623305784 Has never s moked or chewed tobacco 05/31/[address]: 853909261 Never drinks alco hol 05/31/2018 Has the [...] use ICD-10: Z01.89 ICD-9: V72.85 01/01/2020 Active [place] [facility] ICD-10: H10.029 ICD-9: 372.03 12/29/2019 Active [...] ICD-10: UXZ.01 ICD-9: XZ0.1 04/27/2019 Active Other fdc (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 ICD-10: Z79.899 ICD-9: [...] ICD-10: R51 ICD-9: 784.0 10/03/2018 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 anti-inflammatories (NSAID) ICD-10: Z79.1 ICD-9: V58.64 06/13/2018 Active Medications Medication Codes Instructions Start Date Stop Date Status Fill Instructions gabapentin 300 mg capsule RxNorm: 852142 TAKE 1 CAPSULE BY MOUTH THREE TIMES DAILY 07/11/20 20 2020 Inactive cetirizine 10 mg tablet RxNorm: 7391009 TAKE (1) TABLET BY MOUTH DAILY 07/11/20 20 2020 Inactive metformin 500 mg tablet RxNorm: 988367 1 Tablet(s) Oral two times a day 07/08/20 20 2019 Inactive loperamide 2 mg tablet RxNorm: 867407 1 Tablet(s) Oral as needed take one tablet after each loose stool, maximum of 8 tablets in 24 hours 06/24/20 20 2021 Inactive Sudafed 12 Hour 120 mg tablet,extended release RxNorm: 5116644 TAKE 1 TABLET BY MOUTH EVERY 12 HOURS NEEDED 06/11/20 20 2019 Inactive hydrochlorothiazide 25 mg tablet RxNorm: 684715 TAKE (1) TABLET BY MOUTH EVERY DAY 06/11/20 20 2019 Inactive omeprazole 20 mg capsule,delayed release RxNorm: 395836 TAKE 1 CAPSULE BY MOUTH EVERY DAY 05/14/20 20 2020 Inactive metformin 500 mg tablet RxNorm: 519542 1 Tablet(s) Oral every day 05/12/20 20 2019 Inactive True Metrix Glucose Test Strip RxNorm: 1 Test Strips Miscellaneous two times a day as needed 04/17/20 No Stop Date Active metformin 500 mg tablet RxNorm: 721163 1 Tablet(s) Oral every day 04/17/20 20 2019 Inactive diclofenac sodium 75 mg tablet,delayed release RxNorm: 978834 1 Tablet(s) PO BID 04/14/20 20 2021 Inactive This refill negates all other refills of this medication Sudafed 12 Hour 120 mg tablet,extended release RxNorm: 0806145 TAKE 1 TABLET BY MOUTH EVERY 12 HOURS NEEDED 03/14/20 20 2019 Inactive True Metrix Glucose Test Strip RxNorm: 1 Test Strips Miscellaneous every morning 03/13/20 20 2019 Inactive 100/container True Metrix Glucose Test Strip RxNorm: 1 Test Strips Miscellaneous QAM 02/22/20 20 2019 Inactive 100/container loperamide 2 mg tablet RxNorm: 565886 1 Tablet(s) Oral as needed take one tablet after each loose stool, maximum of 8 tablets in 24 hours 02/22/20 20 2019 Inactive levothyroxine 50 mcg tablet RxNorm: 135575 1 Tablet(s) PO daily 01/17/20 20 2020 Inactive cetirizine 10 mg tablet RxNorm: 7231339 1 Tablet(s) PO daily 01/17/20 20 2019 Inactive loperamide 2 mg tablet RxNorm: 778592 1 Tablet(s) Oral as needed take one tablet after each loose stool, maximum of 8 tablets in 24 hours 01/17/20 20 2019 Inactive quetiapine 100 mg tablet RxNorm: 688844 1 Tablet(s) Oral every night at bedtime 01/17/20 20 2019 Inactive gabapentin 300 mg capsule RxNorm: 520311 1 Capsule(s) PO TID 01/17/20 20 2019 Inactive lisinopril 2.5 mg tablet RxNorm: 519481 1 Tablet(s) PO daily 01/15/20 20 2020 Inactive Singulair 10 mg tablet RxNorm: 404895 1 Tablet(s) PO daily 01/15/20 20 2020 Inactive levothyroxine 50 mcg tablet RxNorm: 206600 1 Tablet(s) PO daily 01/15/20 20 2019 Inactive gabapentin 300 mg capsule RxNorm: 671579 1 Capsule(s) PO TID 01/15/20 20 2019 Inactive cetirizine 10 mg tablet RxNorm: 2787411 1 Tablet(s) PO daily 01/15/20 20 2019 Inactive gentamicin 0.3 % eye drops RxNorm: 087054 1 Drop(s) ophthalmic (eye) four times a day 12/29/19 20 2019 Inactive gentamicin 0.3 % eye drops RxNorm: 314941 1 Drop(s) ophthalmic (eye) four times a day 12/29/19 20 2019 Inactive gentamicin 0.3 % eye drops RxNorm: 765049 1 Drop(s) ophthalmic (eye) four times a day 12/29/19 20 2019 Inactive hydrochlorothiazide 25 mg tablet RxNorm: 420955 1 Tablet(s) Oral every day 12/21/19 20 2019 Inactive Sudafed 12 Hour 120 mg tablet,extended release RxNorm: 7362504 TAKE (1) TABLET BY MOUTH EVERY 12 HOURS NEEDED 12/21/19 20 2019 Inactive loperamide 2 mg tablet RxNorm: 200225 1 Tablet(s) Oral as needed take one tablet after each loose stool, maximum of 8 tablets in 24 hours 12/11/19 20 2019 Inactive loperamide 2 mg tablet RxNorm: 672133 1 Tablet(s) Oral as needed take one tablet after each loose stool, maximum of 8 tablets in 24 hours 12/11/19 20 2019 Inactive atorvastatin 40 mg tablet RxNorm: 989523 1 Tablet(s) Oral every day 11/29/19 20 2020 Inactive quetiapine 100 mg tablet RxNorm: 240986 1 Tablet(s) Oral every night at bedtime 11/28/19 20 2019 Inactive sertraline 100 mg tablet RxNorm: 299841 1 Tablet(s) Oral 11/28/19 20 2019 Inactive omeprazole 20 mg capsule,delayed release RxNorm: 255249 1 Capsule(s) Oral every day 11/20/19 20 2019 Inactive amoxicillin 250 mg capsule RxNorm: 374855 1 Capsule(s) Oral three times a day 11/07/19 20 2019 Inactive multivitamin with iron-mineral tablet RxNorm: 1 Tablet(s) Oral every day 10/29/19 20 2021 Inactive cetirizine 10 mg tablet RxNorm: 1574339 1 Tablet(s) PO daily 10/20/19 20 2019 Inactive This refill negates all other refills of this medication. Please do not auto refill Singulair 10 mg tablet RxNorm: 310970 1 Tablet(s) PO daily 10/20/19 20 2019 Inactive This refill negates all other refills of this medication gabapentin 300 mg capsule RxNorm: 673304 1 Capsule(s) PO TID 10/20/19 20 2019 Inactive lisinopril 2.5 mg tablet RxNorm: 947889 1 Tablet(s) PO daily 10/20/19 20 2019 Inactive levothyroxine 50 mcg tablet RxNorm: 736684 1 Tablet(s) PO daily 10/20/192019 Inactive This refill negates all other refills of this medication fenugreek seed extract 500 mg capsule RxNorm: 1 Capsule(s) Oral three times a day 10/17/19 20 2021 Inactive hydrochlorothiazide 25 mg tablet RxNorm: 687310 1 Tablet(s) Oral every day 10/17/192019 Inactive Alcohol Prep Pads RxNorm: 781459 1 Patch TOP QAM 10/16/19 20 2020 Inactive loperamide 2 mg tablet RxNorm: 062670 1 Tablet(s) Oral as needed take one [...] 2019 Inactive hydrochlorothiazide 25 mg tablet RxNorm: 972480 1 Tablet(s) Oral every day 09/19/202019 Inactive Sudafed 12 Hour 120 mg tablet,extended release RxNorm: 3452164 1 Tablet(s) Oral every 12 hours as needed 09/11/20 19 2018 Inactive omeprazole 20 mg capsule,delayed release RxNorm: 113813 1 Capsule(s) Oral every day 09/07/20 19 2019 Inactive Sudafed 12 Hour 120 mg tablet,extended release RxNorm: 2083754 1 Tablet(s) Oral every 12 hours as needed 09/04/20 19 2018 Inactive pantoprazole 40 mg tablet,delayed release RxNorm: 039728 1 Tablet(s) Oral every day 08/24/20 19 2018 Inactive discontinue any other H2Blkr. and PPI albuterol sulfate 2.5 mg/3 mL (0.083 %) solution for nebulization RxNorm: 405858 1 Vial Inhalation every four hours as needed as needed for dyspnea 08/17/20 19 2019 Inactive 60/box. This refill negates all other refills of this medication. Please do not fill early. Please do not auto refill. Symbicort 160 mcg-4.5 mcg/actuation HFA aerosol inhaler RxNorm: 5821455 2 Puff(s) INH BID 08/17/20 19 No Stop Date Active Alcohol Prep Pads RxNorm: 979000 1 Patch TOP QAM 08/17/20 19 2019 Inactive Ventolin HFA 90 mcg/actuation aerosol inhaler RxNorm: 643274 2 Puff(s) INH QID 08/09/20 19 2019 Inactive Please do not fill early. Please do not auto refill. This refill negates all other refills of this medication True Metrix Glucose Test Strip RxNorm: 1 Test Strips Miscellaneous QAM 08/09/20 19 2019 Inactive 100/container atorvastatin 40 mg tablet RxNorm: 646508 1 Tablet(s) Oral every day 07/04/20 19 2019 Inactive levmetamfetamine 50 mg nasal inhaler RxNorm: 1 Unit(s) NASAL Q3-4H Do not use more than every 3 hours or 8 times/24hours 06/26/20 19 2021 Inactive Please do not auto refill. This refill negates all other refills of this medication buspirone 7.5 mg tablet RxNorm: 893302 1 Tablet(s) PO BID 06/26/20 19 2020 Inactive This refill negates all other refills of this medication hydrochlorothiazide 12.5 mg tablet RxNorm: 667069 1 Tablet(s) PO QAM 06/26/20 19 2019 Inactive Ventolin HFA 90 mcg/actuation aerosol inhaler RxNorm: 882857 2 Puff(s) INH QID 06/26/20 19 2018 Inactive Please do not fill early. Please do not auto refill. This refill negates all other refills of this medication Singulair 10 mg tablet RxNorm: 592882 1 Tablet(s) PO daily 06/26/20 19 2019 Inactive This refill negates all other refills of this medication cetirizine 10 mg tablet RxNorm: 2340958 1 Tablet(s) PO daily 06/26/20 19 2019 Inactive This refill negates all other refills of this medication. Please do not auto refill levothyroxine 50 mcg tablet RxNorm: 632386 1 Tablet(s) PO daily 06/26/20 19 2019 Inactive This refill negates all other refills of this medication diclofenac sodium 75 mg tablet,delayed release RxNorm: 324253 1 Tablet(s) PO BID 06/26/20 19 2019 Inactive This refill negates all other refills of this medication ranitidine 150 mg tablet RxNorm: 786228 1 Tablet(s) PO BID 06/26/20 19 2018 Inactive This refill negates all other refills of this medication Calcium 600-D3 Plus (mag-zinc) 600 mg calcium-800 unit-50 mg tablet RxNorm: 1 Tablet(s) PO daily take an additonal tablet for itching. 06/26/20 19 2018 Inactive This refill negates all other refills of this medication albuterol sulfate 2.5 mg/3 mL (0.083 %) solution for nebulization RxNorm: 641062 1 Vial INH QID 06/26/20 19 2018 Inactive 60/box. This refill negates all other refills of this medication. Please do not fill early. Please do not auto refill. lisinopril 2.5 mg tablet RxNorm: 133223 1 Tablet(s) PO daily 06/21/20 19 2019 Inactive gabapentin 300 mg capsule RxNorm: 775827 1 Capsule(s) PO TID 06/21/20 19 2019 Inactive atorvastatin 20 mg tablet RxNorm: 879651 1 Tablet(s) PO QHS 06/07/202018 Inactive This refill negates all other refills of this medication TRUEplus Lancets 30 gauge RxNorm: 1 Lancets Miscellaneous QAM 05/29/20 19 2018 Inactive 100/box gabapentin 300 mg capsule RxNorm: 786948 1 Capsule(s) PO TID 05/03/20 19 2018 Inactive Flintstones Complete (iron) 18 mg iron chewable tablet RxNorm: 1 Tablet(s) PO daily 04/04/202021 Inactive This refill negates all other refills of this medication gabapentin 300 mg capsule RxNorm: 829202 1 Capsule(s) PO TID as needed 02/01/20 19 2018 Inactive True Metrix Glucose Test Strip RxNorm: 1 Test Strips Miscellaneous QA 02/01/20 19 2018 Inactive 100/container Alcohol Prep Pads RxNorm: 593191 1 Patch TOP QA 02/01/20 19 2018 Inactive TRUEplus Lancets 30 gauge RxNorm: 1 Lancets Miscellaneous QA 02/01/202018 Inactive 100/box lisinopril 2.5 mg tablet RxNorm: 473890 1 Tablet(s) PO daily 12/28/19 19 2018 Inactive ranitidine 150 mg tablet RxNorm: 959840 1 Tablet(s) PO BID 10/21/192018 Inactive This refill negates all other refills of this medication albuterol sulfate 2.5 mg/3 mL (0.083 %) solution for nebulization RxNorm: 272896 1 Vial INH QID 10/21/192018 Inactive 60/box. [...] this medication gabapentin 300 mg capsule RxNorm: 223925 1 Capsule(s) PO TID as needed 10/21/192018 Inactive atorvastatin 20 mg tablet RxNorm: 753671 1 Tablet(s) PO QHS 10/21/192018 Inactive This refill negates all other refills of this medication trazodone 50 mg tablet RxNorm: 082761 1 Tablet(s) PO QHS 10/21/192018 Inactive This refill negates all other refills of this medication Ventolin HFA 90 mcg/actuation aerosol inhaler RxNorm: 690260 2 Puff(s) INH QID 10/21/192018 Inactive Please do not fill early. Please do not auto refill. This refill negates all other refills of this medication Calcium 600-D3 Plus 600 mg calcium-800 unit-50 mg tablet RxNorm: 1 Tablet(s) PO daily take an additonal tablet for itching. 10/21/192018 Inactive This refill negates all other refills of this medication Singulair 10 mg tablet RxNorm: 346884 1 Tablet(s) PO daily 10/21/192018 Inactive This refill negates all other refills of this medication buspirone 7.5 mg tablet RxNorm: 380991 1 Tablet(s) PO BID 10/21/192018 Inactive This refill negates all other refills of this medication diclofenac sodium 75 mg tablet,delayed release RxNorm: 912672 1 Tablet(s) PO BID 10/21/192018 Inactive This refill negates all other refills of this medication hydrochlorothiazide 12.5 mg tablet RxNorm: 589808 1 Tablet(s) PO QAM 10/21/192018 Inactive metoprolol succinate ER 50 mg tablet,extended release 24 hr RxNorm: 732168 1 Tablet(s) PO daily 10/21/19 19 2018 Inactive This refill negates all other refills of this medication levothyroxine 50 mcg tablet RxNorm: 817083 1 Tablet(s) PO daily 10/21/19 19 2018 Inactive This refill negates all other refills of this medication cetirizine 10 mg tablet RxNorm: 9926027 1 Tablet(s) PO daily 10/21/192018 Inactive This refill negates all other refills of this medication. Please do not auto refill Flintstones Complete (iron) 18 mg iron chewable tablet RxNorm: 1 Tablet(s) PO daily 10/21/192018 Inactive This refill negates all other refills of this medication buspirone 7.5 mg tablet RxNorm: 041048 1 Tablet(s) PO BID 10/12/192018 Inactive cetirizine 10 mg tablet RxNorm: 9298690 1 Tablet(s) PO daily 09/28/20 18 2018 Inactive Guaiasorb DM 10 mg-100 mg/5 mL oral liquid RxNorm: 802511 10 Milliliter(s) PO As needed every 4 hr 09/24/20 18 2018 Inactive Vicks Vaporub 4.7 %-1.2 %-2.6 % topical ointment RxNorm: 7197176 1 Application TOP TID 09/24/20 18 2018 Inactive levmetamfetamine 50 mg nasal inhaler RxNorm: 1 Unit(s) NASAL Q3-4H 09/24/20 18 2017 Inactive sertraline 50 mg tablet RxNorm: 001066 1 Tablet(s) PO daily 09/09/20 18 2018 Inactive Please note dose trazodone 50 mg tablet RxNorm: 943376 1 Tablet(s) PO QHS 09/06/20 18 2018 Inactive sertraline 50 mg tablet RxNorm: 667919 1 Tablet(s) PO daily 09/06/20 18 2017 Inactive amoxicillin 500 mg tablet RxNorm: 177394 1 Tablet(s) PO Q12H 08/31/20 18 2017 Inactive albuterol sulfate 2.5 mg/3 mL (0.083 %) solution for nebulization RxNorm: 667472 1 Vial INH QID 08/10/20 18 2018 Inactive 60/box. Please do not fill early. Please do not auto refill. Prozac 10 mg capsule RxNorm: 456078 1 Capsule(s) PO daily 08/09/20 18 2017 Inactive buspirone 7.5 mg tablet RxNorm: 296315 1 Tablet(s) PO BID 08/09/20 18 2018 Inactive gabapentin 300 mg capsule RxNorm: 052936 1 Capsule(s) PO TID as needed 08/01/20 18 2018 Inactive hydrochlorothiazide 12.5 mg tablet RxNorm: 959316 1 Tablet(s) PO QAM 08/01/20 18 2018 Inactive ranitidine 150 mg tablet RxNorm: 533754 1 Tablet(s) PO BID 08/01/20 18 2018 Inactive Macrobid 100 mg capsule RxNorm: 440458 1 Capsule(s) PO Q12H 06/21/20 18 2017 Inactive Singulair 10 mg tablet RxNorm: 788489 1 Tablet(s) PO daily 06/14/20 18 2018 Inactive Ventolin HFA 90 mcg/actuation aerosol inhaler RxNorm: 3905737 2 Puff(s) INH QID 06/14/20 18 2018 Inactive Singulair 10 mg tablet RxNorm: 969719 1 Tablet(s) PO daily 06/14/20 18 2017 Inactive buspirone 7.5 mg tablet RxNorm: 148533 1 Tablet(s) PO BID 06/14/20 18 2017 Inactive Prozac 10 mg capsule RxNorm: 148993 1 Capsule(s) PO daily 06/14/20 18 2017 Inactive Neilmed Pediatric Sinus Rinse Refill packet RxNorm: 1 Unit Dose NASAL PRN 05/31/20 18 2021 Inactive diclofenac sodium 75 mg tablet,delayed release RxNorm: 209459 1 Tablet(s) PO BID 05/31/20 18 2017 Inactive lisinopril 2.5 mg tablet RxNorm: 064744 1 Tablet(s) PO daily 05/31/20 18 2017 Inactive metoprolol succinate ER 50 mg tablet,extended release 24 hr RxNorm: 371429 1 Tablet(s) PO daily 05/31/20 18 2017 Inactive levothyroxine 50 mcg tablet RxNorm: 708758 1 Tablet(s) PO daily 05/31/20 18 2017 Inactive TRUEplus Lancets 30 gauge RxNorm: 1 Lancets Miscellaneous QAM 05/31/20 18 2017 Inactive 100/box Ventolin HFA 90 mcg/actuation aerosol inhaler RxNorm: 663139 2 Puff(s) INH QID 05/31/20 18 2017 Inactive Aleve 220 mg capsule RxNorm: 7179548 1 Capsule(s) PO BID 05/31/20 18 2018 Inactive ranitidine 150 mg tablet RxNorm: 788754 1 Tablet(s) PO BID 05/31/20 18 2017 Inactive gabapentin 300 mg capsule RxNorm: 419132 1 Capsule(s) PO TID as needed 05/31/20 18 2017 Inactive atorvastatin 20 mg tablet RxNorm: 727664 1 Tablet(s) PO QHS 05/31/20 18 2017 Inactive True Metrix Glucose Test Strip RxNorm: 1 Test Strips Miscellaneous QAM 05/31/20 18 2017 Inactive 50/container Calcium 600-D3 Plus 600 mg calcium-800 unit-50 mg tablet RxNorm: 1 Tablet(s) PO daily take an additonal tablet for itching. 05/31/20 18 2017 Inactive hydrochlorothiazide 12.5 mg tablet RxNorm: 356941 1 Tablet(s) PO QAM 05/31/20 18 2017 Inactive Flintstones Complete (iron) 18 mg iron chewable tablet RxNorm: 1 Tablet(s) PO daily 05/31/20 18 2017 Inactive d-mannose oral powder RxNorm: PO 18 2021 Inactive True Metrix Glucose Meter RxNorm: miscellaneous 08/17/202018 Inactive sertraline 50 mg tablet RxNorm: 657250 1 Tablet(s) PO daily 11/28/19 20 2019 Inactive loperamide 2 mg tablet RxNorm: 422267 oral 09/29/20 19 2018 Inactive Symbicort 160 mcg-4.5 mcg/actuation HFA aerosol inhaler RxNorm: 7596111 2 Puff(s) INH BID 08/17/202018 Inactive Medication Administered No Medication Administered data Procedures Procedure Codes Date Electrocardiogram CPT-4: 74380 05/14/2020 Tobacco Assessment/Screening CPT-4: TCA Fall Risk Assessment SNOMED CT: 48273166 4 CPT-4: DFRA 01/01/2020 Functional Assessment CPT-4: DFA 01/01/2020 [place] Assessment CPT-4: DSWA 11/04 Patient Health Questionnaire CPT-4: DPHQ [place]um Fany Assessment CPT-4: DSWA 10/03 Hypertension CPT-4: HTN 10/17/2019 Fall Risk Assessment SNOMED CT: 42082261 4 CPT-4: DFRA 09/19/2019 Functional Assessment CPT-4: DFA 09/19/2019 Urinalysis, dip stick CPT-4: 23851 06/21/2019 Tobacco Assessment/Screening CPT-4: TCA Patient Health Questionnaire CPT-4: DPHQ AHA/REBECCA Classification Assessment CPT-4: DAHA 04/25/2019 Controlled Substance Report CPT-4: CTRSU 04/03 Urinalysis, dip stick CPT-4: 66263 03/28/2019 Urinalysis, dip stick CPT-4: 71503 03/28/2019 [id number]-Wfctriicwlphccj CPT-4: 03288 Unknown S9R-Obnmcjakgasyqiy CPT-4: 15335 Unknown B8I-Fwccxmfsfjbutjt CPT-4: 79518 Unknown G8K-Xqayfiiiloutugu CPT-4: 70931 Unknown Gynecology Referral SNOMED CT: 359369399 CPT-4: R14 Unknown Reason For Visit No Reason For Visit data Plan of Care Planned Activity Notes Codes Status Date Referral: Pending Gynecology Referral Information Referral Processed Referral: Pending Pulmonolog y Referral Information Referral Processed Referral: Pending Psychiatry Referral Information Referral Initiated Referral: Pending Respirator y Services Referral Information Referral Initiated Referral: Pending Ophthalmol ogy Referral Information Referral Initiated Referral: [facility] WPtel: [address] [facility] [address] [employer]ed [employer] P[employer] Draftsman placed a call out to the patient to notify her that it has been recommended that she be seen by a urologist. Patient agreed to be seen, does not have a provider of choice and no transportation issues. [employer] Draftsman faxed referral and clinical notes to [facility] in [place], [place] near the patient's home. Patient to [...] and prefers a provider in the [place] or [place] area. [employer]ed [employer] P[employer] Draftsman placed a call out to everyone listed in the area and the only location that was able to accept the patient's insurance was [address] [phone] and spoke with Maylin. Maylin asked that the patient's referral, face sheet and visit notes be faxed to . [employer]sman faxed over requested documents. Patient appointment confirmation letter generated and mailed to her home address. Patient to call to schedule an appointment. Processed Referral: [facility] WPtel: [address] [facility] [address] [place] [address] Patient notified that it has been advised that she be seen by Neurology. Patient agreed to be seen and prefers to be seen by a provider in the [place], [place] area. Patient denies any concerns with transportation, and prefers to schedule her own appointment. [employer]man placed a call out to [facility] and spoke with Neeraj Mcfarland: who confirmed that their office is able to accept new patients and the patient's insurance. After confirming the providers fax number, screenplay writer faxed over the patient's referral, and [...]
--- OUTSIDE RECORDS SUMMARY | 2023-12-07 02:13 | XMS_ITS | CCD ---
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 Crane Helper Name Role Phone Palomo KING, Anna Primary Care Provider Unav ailable Unavailable Chronic Care Management Unavaila ble Summary Purpose DataExchange Insurance Providers Payer name Policy type / Coverage type Covered democrat ID Effective Begin Date Effective End Date [facility] [id number] Unknown Unknown Family history Mother Diagnosis Age [...] Unknown Disability 05/31/[address]: 403958153 Has never s moked or chewed tobacco 05/31/[address]: 805559615 Never drinks alco hol 05/31/2018 Has the [...] use ICD-10: Z01.89 ICD-9: V72.85 01/01/2020 Active [facility] ICD-10: H10.029 ICD-9: 372.03 12/29/2019 Active [...] ICD-10: UXZ.01 ICD-9: XZ0.1 04/27/2019 Active Other long-term (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 [...] Fill Instructions gabapentin 300 mg capsule RxNorm: 034755 TAKE 1 CAPSULE BY MOUTH THREE TIMES DAILY 07/11/20 20 2020 Inactive cetirizine 10 mg tablet RxNorm: 1281149 TAKE (1) TABLET BY MOUTH DAILY 07/11/20 20 2020 Inactive metformin 500 mg tablet RxNorm: 053276 1 Tablet(s) Oral two times a day 07/08/20 20 2019 Inactive loperamide 2 mg tablet RxNorm: 536344 1 Tablet(s) Oral as needed take one tablet after each loose stool, maximum of 8 tablets in 24 hours 06/24/20 20 2021 Inactive Sudafed 12 Hour 120 mg tablet,extended release RxNorm: 3595401 TAKE 1 TABLET BY MOUTH EVERY 12 HOURS NEEDED 06/11/20 20 2019 Inactive hydrochlorothiazide 25 mg tablet RxNorm: 919938 TAKE (1) TABLET BY MOUTH EVERY DAY 06/11/20 20 2019 Inactive omeprazole 20 mg capsule,delayed release RxNorm: 410366 TAKE 1 CAPSULE BY MOUTH EVERY DAY 05/14/20 20 2020 Inactive metformin 500 mg tablet RxNorm: 299911 1 Tablet(s) Oral every day 05/12/20 20 2019 Inactive True Metrix Glucose Test Strip RxNorm: 1 Test Strips Miscellaneous two times a day as needed 04/17/20 No Stop Date Active metformin 500 mg tablet RxNorm: 624432 1 Tablet(s) Oral every day 04/17/20 20 2019 Inactive diclofenac sodium 75 mg tablet,delayed release RxNorm: 862413 1 Tablet(s) PO BID 04/14/20 20 2021 Inactive This refill negates all other refills of this medication Sudafed 12 Hour 120 mg tablet,extended release RxNorm: 0298904 TAKE 1 TABLET BY MOUTH EVERY 12 HOURS NEEDED 03/14/20 20 2019 Inactive True Metrix Glucose Test Strip RxNorm: 1 Test Strips Miscellaneous every morning 03/13/20 20 2019 Inactive 100/container True Metrix Glucose Test Strip RxNorm: 1 Test Strips Miscellaneous QAM 02/22/20 20 2019 Inactive 100/container loperamide 2 mg tablet RxNorm: 314661 1 Tablet(s) Oral as needed take one tablet after each loose stool, maximum of 8 tablets in 24 hours 02/22/20 20 2019 Inactive levothyroxine 50 mcg tablet RxNorm: 636893 1 Tablet(s) PO daily 01/17/20 20 2020 Inactive cetirizine 10 mg tablet RxNorm: 2258233 1 Tablet(s) PO daily 01/17/20 20 2019 Inactive loperamide 2 mg tablet RxNorm: 912677 1 Tablet(s) Oral as needed take one tablet after each loose stool, maximum of 8 tablets in 24 hours 01/17/20 20 2019 Inactive quetiapine 100 mg tablet RxNorm: 556921 1 Tablet(s) Oral every night at bedtime 01/17/20 20 2019 Inactive gabapentin 300 mg capsule RxNorm: 066474 1 Capsule(s) PO TID 01/17/20 20 2019 Inactive lisinopril 2.5 mg tablet RxNorm: 445381 1 Tablet(s) PO daily 01/15/20 20 2020 Inactive Singulair 10 mg tablet RxNorm: 884093 1 Tablet(s) PO daily 01/15/20 20 2020 Inactive levothyroxine 50 mcg tablet RxNorm: 420259 1 Tablet(s) PO daily 01/15/20 20 2019 Inactive gabapentin 300 mg capsule RxNorm: 835551 1 Capsule(s) PO TID 01/15/20 20 2019 Inactive cetirizine 10 mg tablet RxNorm: 1712102 1 Tablet(s) PO daily 01/15/20 20 2019 Inactive gentamicin 0.3 % eye drops RxNorm: 842298 1 Drop(s) ophthalmic (eye) four times a day 12/29/19 20 2019 Inactive gentamicin 0.3 % eye drops RxNorm: 768640 1 Drop(s) ophthalmic (eye) four times a day 12/29/19 20 2019 Inactive gentamicin 0.3 % eye drops RxNorm: 801527 1 Drop(s) ophthalmic (eye) four times a day 12/29/19 20 2019 Inactive hydrochlorothiazide 25 mg tablet RxNorm: 597717 1 Tablet(s) Oral every day 12/21/19 20 2019 Inactive Sudafed 12 Hour 120 mg tablet,extended release RxNorm: 2367162 TAKE (1) TABLET BY MOUTH EVERY 12 HOURS NEEDED 12/21/19 20 2019 Inactive loperamide 2 mg tablet RxNorm: 196612 1 Tablet(s) Oral as needed take one tablet after each loose stool, maximum of 8 tablets in 24 hours 12/11/19 20 2019 Inactive loperamide 2 mg tablet RxNorm: 435939 1 Tablet(s) Oral as needed take one tablet after each loose stool, maximum of 8 tablets in 24 hours 12/11/19 20 2019 Inactive atorvastatin 40 mg tablet RxNorm: 666639 1 Tablet(s) Oral every day 11/29/19 20 2020 Inactive quetiapine 100 mg tablet RxNorm: 736175 1 Tablet(s) Oral every night at bedtime 11/28/19 20 2019 Inactive sertraline 100 mg tablet RxNorm: 181436 1 Tablet(s) Oral 11/28/19 20 2019 Inactive omeprazole 20 mg capsule,delayed release RxNorm: 660329 1 Capsule(s) Oral every day 11/20/19 20 2019 Inactive amoxicillin 250 mg capsule RxNorm: 699595 1 Capsule(s) Oral three times a day 11/07/19 20 2019 Inactive multivitamin with iron-mineral tablet RxNorm: 1 Tablet(s) Oral every day 10/29/19 20 2021 Inactive cetirizine 10 mg tablet RxNorm: 6461273 1 Tablet(s) PO daily 10/20/19 20 2019 Inactive This refill negates all other refills of this medication. Please do not auto refill Singulair 10 mg tablet RxNorm: 107995 1 Tablet(s) PO daily 10/20/19 20 2019 Inactive This refill negates all other refills of this medication gabapentin 300 mg capsule RxNorm: 170799 1 Capsule(s) PO TID 10/20/19 20 2019 Inactive lisinopril 2.5 mg tablet RxNorm: 277075 1 Tablet(s) PO daily 10/20/19 20 2019 Inactive levothyroxine 50 mcg tablet RxNorm: 063466 1 Tablet(s) PO daily 10/20/192019 Inactive This refill negates all other refills of this medication fenugreek seed extract 500 mg capsule RxNorm: 1 Capsule(s) Oral three times a day 10/17/19 20 2021 Inactive hydrochlorothiazide 25 mg tablet RxNorm: 362308 1 Tablet(s) Oral every day 10/17/192019 Inactive Alcohol Prep Pads RxNorm: 549910 1 Patch TOP QAM 10/16/19 20 2020 Inactive loperamide 2 mg tablet RxNorm: 570530 1 Tablet(s) Oral as needed take one [...] 2019 Inactive hydrochlorothiazide 25 mg tablet RxNorm: 442431 1 Tablet(s) Oral every day 09/19/202019 Inactive Sudafed 12 Hour 120 mg tablet,extended release RxNorm: 8957466 1 Tablet(s) Oral every 12 hours as needed 09/11/20 19 2018 Inactive omeprazole 20 mg capsule,delayed release RxNorm: 457310 1 Capsule(s) Oral every day 09/07/20 19 2019 Inactive Sudafed 12 Hour 120 mg tablet,extended release RxNorm: 5751884 1 Tablet(s) Oral every 12 hours as needed 09/04/20 19 2018 Inactive pantoprazole 40 mg tablet,delayed release RxNorm: 788460 1 Tablet(s) Oral every day 08/24/20 19 2018 Inactive discontinue any other H2Blkr. and PPI albuterol sulfate 2.5 mg/3 mL (0.083 %) solution for nebulization RxNorm: 496344 1 Vial Inhalation every four hours as needed as needed for dyspnea 08/17/20 19 2019 Inactive 60/box. This refill negates all other refills of this medication. Please do not fill early. Please do not auto refill. Symbicort 160 mcg-4.5 mcg/actuation HFA aerosol inhaler RxNorm: 9953955 2 Puff(s) INH BID 08/17/20 19 No Stop Date Active Alcohol Prep Pads RxNorm: 809312 1 Patch TOP QAM 08/17/20 19 2019 Inactive Ventolin HFA 90 mcg/actuation aerosol inhaler RxNorm: 204225 2 Puff(s) INH QID 08/09/20 19 2019 Inactive Please do not fill early. Please do not auto refill. This refill negates all other refills of this medication True Metrix Glucose Test Strip RxNorm: 1 Test Strips Miscellaneous QAM 08/09/20 19 2019 Inactive 100/container atorvastatin 40 mg tablet RxNorm: 099243 1 Tablet(s) Oral every day 07/04/20 19 2019 Inactive levmetamfetamine 50 mg nasal inhaler RxNorm: 1 Unit(s) NASAL Q3-4H Do not use more than every 3 hours or 8 times/24hours 06/26/20 19 2021 Inactive Please do not auto refill. This refill negates all other refills of this medication buspirone 7.5 mg tablet RxNorm: 098931 1 Tablet(s) PO BID 06/26/20 19 2020 Inactive This refill negates all other refills of this medication hydrochlorothiazide 12.5 mg tablet RxNorm: 915658 1 Tablet(s) PO QAM 06/26/20 19 2019 Inactive Ventolin HFA 90 mcg/actuation aerosol inhaler RxNorm: 898971 2 Puff(s) INH QID 06/26/20 19 2018 Inactive Please do not fill early. Please do not auto refill. This refill negates all other refills of this medication Singulair 10 mg tablet RxNorm: 644374 1 Tablet(s) PO daily 06/26/20 19 2019 Inactive This refill negates all other refills of this medication cetirizine 10 mg tablet RxNorm: 1939233 1 Tablet(s) PO daily 06/26/20 19 2019 Inactive This refill negates all other refills of this medication. Please do not auto refill levothyroxine 50 mcg tablet RxNorm: 254823 1 Tablet(s) PO daily 06/26/20 19 2019 Inactive This refill negates all other refills of this medication diclofenac sodium 75 mg tablet,delayed release RxNorm: 359279 1 Tablet(s) PO BID 06/26/20 19 2019 Inactive This refill negates all other refills of this medication ranitidine 150 mg tablet RxNorm: 828752 1 Tablet(s) PO BID 06/26/20 19 2018 Inactive This refill negates all other refills of this medication Calcium 600-D3 Plus (mag-zinc) 600 mg calcium-800 unit-50 mg tablet RxNorm: 1 Tablet(s) PO daily take an additonal tablet for itching. 06/26/20 19 2018 Inactive This refill negates all other refills of this medication albuterol sulfate 2.5 mg/3 mL (0.083 %) solution for nebulization RxNorm: 088434 1 Vial INH QID 06/26/20 19 2018 Inactive 60/box. This refill negates all other refills of this medication. Please do not fill early. Please do not auto refill. lisinopril 2.5 mg tablet RxNorm: 310003 1 Tablet(s) PO daily 06/21/20 19 2019 Inactive gabapentin 300 mg capsule RxNorm: 930478 1 Capsule(s) PO TID 06/21/20 19 2019 Inactive atorvastatin 20 mg tablet RxNorm: 957087 1 Tablet(s) PO QHS 06/07/202018 Inactive This refill negates all other refills of this medication TRUEplus Lancets 30 gauge RxNorm: 1 Lancets Miscellaneous QAM 05/29/20 19 2018 Inactive 100/box gabapentin 300 mg capsule RxNorm: 210581 1 Capsule(s) PO TID 05/03/20 19 2018 Inactive Flintstones Complete (iron) 18 mg iron chewable tablet RxNorm: 1 Tablet(s) PO daily 04/04/202021 Inactive This refill negates all other refills of this medication gabapentin 300 mg capsule RxNorm: 829189 1 Capsule(s) PO TID as needed 02/01/20 19 2018 Inactive True Metrix Glucose Test Strip RxNorm: 1 Test Strips Miscellaneous QA 02/01/20 19 2018 Inactive 100/container Alcohol Prep Pads RxNorm: 080028 1 Patch TOP QA 02/01/20 19 2018 Inactive TRUEplus Lancets 30 gauge RxNorm: 1 Lancets Miscellaneous QA 02/01/202018 Inactive 100/box lisinopril 2.5 mg tablet RxNorm: 470607 1 Tablet(s) PO daily 12/28/19 19 2018 Inactive ranitidine 150 mg tablet RxNorm: 164772 1 Tablet(s) PO BID 10/21/192018 Inactive This refill negates all other refills of this medication albuterol sulfate 2.5 mg/3 mL (0.083 %) solution for nebulization RxNorm: 523953 1 Vial INH QID 10/21/192018 Inactive 60/box. [...] this medication gabapentin 300 mg capsule RxNorm: 209356 1 Capsule(s) PO TID as needed 10/21/192018 Inactive atorvastatin 20 mg tablet RxNorm: 276522 1 Tablet(s) PO QHS 10/21/192018 Inactive This refill negates all other refills of this medication trazodone 50 mg tablet RxNorm: 270099 1 Tablet(s) PO QHS 10/21/192018 Inactive This refill negates all other refills of this medication Ventolin HFA 90 mcg/actuation aerosol inhaler RxNorm: 488061 2 Puff(s) INH QID 10/21/192018 Inactive Please do not fill early. Please do not auto refill. This refill negates all other refills of this medication Calcium 600-D3 Plus 600 mg calcium-800 unit-50 mg tablet RxNorm: 1 Tablet(s) PO daily take an additonal tablet for itching. 10/21/192018 Inactive This refill negates all other refills of this medication Singulair 10 mg tablet RxNorm: 597919 1 Tablet(s) PO daily 10/21/192018 Inactive This refill negates all other refills of this medication buspirone 7.5 mg tablet RxNorm: 015584 1 Tablet(s) PO BID 10/21/192018 Inactive This refill negates all other refills of this medication diclofenac sodium 75 mg tablet,delayed release RxNorm: 384432 1 Tablet(s) PO BID 10/21/192018 Inactive This refill negates all other refills of this medication hydrochlorothiazide 12.5 mg tablet RxNorm: 467802 1 Tablet(s) PO QAM 10/21/192018 Inactive metoprolol succinate ER 50 mg tablet,extended release 24 hr RxNorm: 456994 1 Tablet(s) PO daily 10/21/19 19 2018 Inactive This refill negates all other refills of this medication levothyroxine 50 mcg tablet RxNorm: 286055 1 Tablet(s) PO daily 10/21/19 19 2018 Inactive This refill negates all other refills of this medication cetirizine 10 mg tablet RxNorm: 6487753 1 Tablet(s) PO daily 10/21/192018 Inactive This refill negates all other refills of this medication. Please do not auto refill Flintstones Complete (iron) 18 mg iron chewable tablet RxNorm: 1 Tablet(s) PO daily 10/21/192018 Inactive This refill negates all other refills of this medication buspirone 7.5 mg tablet RxNorm: 671219 1 Tablet(s) PO BID 10/12/192018 Inactive cetirizine 10 mg tablet RxNorm: 4987461 1 Tablet(s) PO daily 09/28/20 18 2018 Inactive Guaiasorb DM 10 mg-100 mg/5 mL oral liquid RxNorm: 034795 10 Milliliter(s) PO As needed every 4 hr 09/24/20 18 2018 Inactive Vicks Vaporub 4.7 %-1.2 %-2.6 % topical ointment RxNorm: 7743680 1 Application TOP TID 09/24/20 18 2018 Inactive levmetamfetamine 50 mg nasal inhaler RxNorm: 1 Unit(s) NASAL Q3-4H 09/24/20 18 2017 Inactive sertraline 50 mg tablet RxNorm: 494285 1 Tablet(s) PO daily 09/09/20 18 2018 Inactive Please note dose trazodone 50 mg tablet RxNorm: 470019 1 Tablet(s) PO QHS 09/06/20 18 2018 Inactive sertraline 50 mg tablet RxNorm: 702180 1 Tablet(s) PO daily 09/06/20 18 2017 Inactive amoxicillin 500 mg tablet RxNorm: 191983 1 Tablet(s) PO Q12H 08/31/20 18 2017 Inactive albuterol sulfate 2.5 mg/3 mL (0.083 %) solution for nebulization RxNorm: 191389 1 Vial INH QID 08/10/20 18 2018 Inactive 60/box. Please do not fill early. Please do not auto refill. Prozac 10 mg capsule RxNorm: 687918 1 Capsule(s) PO daily 08/09/20 18 2017 Inactive buspirone 7.5 mg tablet RxNorm: 939067 1 Tablet(s) PO BID 08/09/20 18 2018 Inactive gabapentin 300 mg capsule RxNorm: 491543 1 Capsule(s) PO TID as needed 08/01/20 18 2018 Inactive hydrochlorothiazide 12.5 mg tablet RxNorm: 621178 1 Tablet(s) PO QAM 08/01/20 18 2018 Inactive ranitidine 150 mg tablet RxNorm: 026506 1 Tablet(s) PO BID 08/01/20 18 2018 Inactive Macrobid 100 mg capsule RxNorm: 017152 1 Capsule(s) PO Q12H 06/21/20 18 2017 Inactive Singulair 10 mg tablet RxNorm: 884222 1 Tablet(s) PO daily 06/14/20 18 2018 Inactive Ventolin HFA 90 mcg/actuation aerosol inhaler RxNorm: 6128161 2 Puff(s) INH QID 06/14/20 18 2018 Inactive Singulair 10 mg tablet RxNorm: 232433 1 Tablet(s) PO daily 06/14/20 18 2017 Inactive buspirone 7.5 mg tablet RxNorm: 276948 1 Tablet(s) PO BID 06/14/20 18 2017 Inactive Prozac 10 mg capsule RxNorm: 852692 1 Capsule(s) PO daily 06/14/20 18 2017 Inactive Neilmed Pediatric Sinus Rinse Refill packet RxNorm: 1 Unit Dose NASAL PRN 05/31/20 18 2021 Inactive diclofenac sodium 75 mg tablet,delayed release RxNorm: 036854 1 Tablet(s) PO BID 05/31/20 18 2017 Inactive lisinopril 2.5 mg tablet RxNorm: 187856 1 Tablet(s) PO daily 05/31/20 18 2017 Inactive metoprolol succinate ER 50 mg tablet,extended release 24 hr RxNorm: 775608 1 Tablet(s) PO daily 05/31/20 18 2017 Inactive levothyroxine 50 mcg tablet RxNorm: 154416 1 Tablet(s) PO daily 05/31/20 18 2017 Inactive TRUEplus Lancets 30 gauge RxNorm: 1 Lancets Miscellaneous QAM 05/31/20 18 2017 Inactive 100/box Ventolin HFA 90 mcg/actuation aerosol inhaler RxNorm: 276551 2 Puff(s) INH QID 05/31/20 18 2017 Inactive Aleve 220 mg capsule RxNorm: 8863050 1 Capsule(s) PO BID 05/31/20 18 2018 Inactive ranitidine 150 mg tablet RxNorm: 173499 1 Tablet(s) PO BID 05/31/20 18 2017 Inactive gabapentin 300 mg capsule RxNorm: 303544 1 Capsule(s) PO TID as needed 05/31/20 18 2017 Inactive atorvastatin 20 mg tablet RxNorm: 291495 1 Tablet(s) PO QHS 05/31/20 18 2017 Inactive True Metrix Glucose Test Strip RxNorm: 1 Test Strips Miscellaneous QAM 05/31/20 18 2017 Inactive 50/container Calcium 600-D3 Plus 600 mg calcium-800 unit-50 mg tablet RxNorm: 1 Tablet(s) PO daily take an additonal tablet for itching. 05/31/20 18 2017 Inactive hydrochlorothiazide 12.5 mg tablet RxNorm: 133069 1 Tablet(s) PO QAM 05/31/20 18 2017 Inactive Flintstones Complete (iron) 18 mg iron chewable tablet RxNorm: 1 Tablet(s) PO daily 05/31/20 18 2017 Inactive d-mannose oral powder RxNorm: PO 18 2021 Inactive True Metrix Glucose Meter RxNorm: miscellaneous 08/17/202018 Inactive sertraline 50 mg tablet RxNorm: 319873 1 Tablet(s) PO daily 11/28/19 20 2019 Inactive loperamide 2 mg tablet RxNorm: 488779 oral 09/29/20 19 2018 Inactive Symbicort 160 mcg-4.5 mcg/actuation HFA aerosol inhaler RxNorm: 9347197 2 Puff(s) INH BID 08/17/202018 Inactive Medication Administered No Medication Administered data Procedures Procedure Codes Date Electrocardiogram CPT-4: 10163 05/14/2020 Tobacco Assessment/Screening CPT-4: TCA Fall Risk Assessment SNOMED CT: 05983298 4 CPT-4: DFRA 01/01/2020 Functional Assessment CPT-4: DFA 01/01/2020 Beeler Fany Assessment CPT-4: DSWA 11/04 Patient Health Questionnaire CPT-4: DPHQ Beeler Fany Assessment CPT-4: DSWA 10/03 Hypertension CPT-4: HTN 10/17/2019 Fall Risk Assessment SNOMED CT: 74118331 4 CPT-4: DFRA 09/19/2019 Functional Assessment CPT-4: DFA 09/19/2019 Urinalysis, dip stick CPT-4: 60519 06/21/2019 Tobacco Assessment/Screening CPT-4: TCA Patient Health Questionnaire CPT-4: DPHQ AHA/REBECCA Classification Assessment CPT-4: DAHA 04/25/2019 Controlled Substance Report CPT-4: CTRSU 04/03 Urinalysis, dip stick CPT-4: 96474 03/28/2019 Urinalysis, dip stick CPT-4: 68741 03/28/2019 [id number] CPT-4: 28604 Unknown [id number]-Aygymmjvpnomdae CPT-4: 41474 Unknown [id number]-Ppnwhymnbmmvvmu CPT-4: 62519 Unknown [id number]-Vhfxahisqgjsqyv CPT-4: 56877 Unknown Gynecology Referral SNOMED CT: 338629142 CPT-4: R14 Unknown Reason For Visit No Reason For Visit data Plan of Care Planned Activity Notes Codes Status Date Referral: Pending Gynecology Referral Information Referral Processed Referral: Pending Pulmonolog y Referral Information Referral Processed Referral: Pending Psychiatry Referral Information Referral Initiated Referral: Pending Respirator y Services Referral Information Referral Initiated Referral: Pending Ophthalmol ogy Referral Information Referral Initiated Referral: [facility] WPtel: [address] [facility] [address] Rod Buster placed a call out to the patient to notify her that it has been recommended that she be seen by a urologist. Patient agreed to be seen, does not have a provider of choice and no transportation issues. Rod Buster faxed referral and clinical notes to [facility] in [place], [place] near the patient's home. Patient to [...] seen and prefers a provider in the [place] or [place] area. Rod Buster placed a call out to everyone listed in the area and the only location that was able to accept the patient's insurance was [address] [address] and spoke with Maylin. Maylin asked that the patient's referral, face sheet and visit notes be faxed to . Rod Buster faxed over requested documents. Patient appointment confirmation letter generated and mailed to her home address. Patient to call to schedule an appointment. Processed Referral: [facility] WPtel: [phone] [facility] [address] [place] [address] Patient notified that it has been advised that she be seen by Neurology. Patient agreed to be seen and prefers to be seen by a provider in the [place], [place] area. Patient denies any concerns with transportation, and prefers to schedule her own appointment. Rod Buster placed a call out to [facility] and spoke with Neeraj [...]
--- OUTSIDE RECORDS SUMMARY | 2023-12-07 02:13 | XMS_ITS | CCD ---
Author Name Leena Culver NP Address [id number] [place] [address] [address] [place] [address] Phone Organization [facility] Phone Care Team Providers Care City Administrator Name Role Phone Anna Culver NP Primary Care Provider Unav ailable Unavailable Chronic Care Management Unavaila ble Summary Purpose DataExchange Insurance Providers Payer name Policy type / Coverage type Covered green party ID Effective Begin Date Effective End Date SUKI MAYO [id number] Unknown Unknown Family history Mother Diagnosis Age [...] Unknown Disability 05/31/[address]: 148645310 Has never s moked or chewed tobacco 05/31/[address]: 578058747 Never drinks alco hol 05/31/2018 Has the [...] atus Abnormal urine finding ICD-10: R82.90 ICD-9: 791.9 09/24/2020 Active Adjustment disorder with mix ed anxiety and depressed mood ICD-10: F43.23 ICD-9: 309.28 09/05/2018 Active GERD (gastroesophageal reflu x disease) ICD-10: K21.9 ICD-9: 530.81 09/07/2019 Active Hypertensive heart disease w ith heart [...] use ICD-10: Z01.89 ICD-9: V72.85 01/01/2020 Active [place] ICD-10: H10.029 ICD-9: 372.03 12/29/2019 Active [...] Active 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 ICD-10: Z79.899 [...] ICD-10: R51 ICD-9: 784.0 10/03/2018 Active 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 non-steroidal anti-inflammatories (NSAID) ICD-10: Z79.1 ICD-9: V58.64 06/13/2018 Active Medications Medication Codes Instructions Start Date Stop Date Status Fill Instructions omeprazole 20 mg capsule,delayed release RxNorm: 278201 1 Capsule(s) Oral two times a day 09/24/20 20 2021 Inactive metformin 1,000 mg tablet RxNorm: 139367 1 Tablet(s) Oral two times a day 08/19/20 20 2020 Inactive start on September 11, 2020 metformin 500 mg tablet RxNorm: 734059 1 Tablet(s) Oral two times a day take with 500mg to equal 1000mg 08/19/20 20 2019 Inactive gabapentin 300 mg capsule RxNorm: 508117 TAKE 1 CAPSULE BY MOUTH THREE TIMES DAILY 07/11/20 20 2020 Inactive cetirizine 10 mg tablet RxNorm: 8357389 TAKE (1) TABLET BY MOUTH DAILY 07/11/20 20 2020 Inactive metformin 500 mg tablet RxNorm: 375126 1 Tablet(s) Oral two times a day 07/08/20 20 2019 Inactive loperamide 2 mg tablet RxNorm: 558636 1 Tablet(s) Oral as needed take one tablet after each loose stool, maximum of 8 tablets in 24 hours 06/24/202021 Inactive Sudafed 12 Hour 120 mg tablet,extended release RxNorm: 4646277 TAKE 1 TABLET BY MOUTH EVERY 12 HOURS NEEDED 06/11/20 20 2019 Inactive hydrochlorothiazide 25 mg tablet RxNorm: 645325 TAKE (1) TABLET BY MOUTH EVERY DAY 06/11/20 20 2019 Inactive omeprazole 20 mg capsule,delayed release RxNorm: 247893 TAKE 1 CAPSULE BY MOUTH EVERY DAY 05/14/20 20 2020 Inactive metformin 500 mg tablet RxNorm: 920227 1 Tablet(s) Oral every day 05/12/20 20 2019 Inactive True Metrix Glucose Test Strip RxNorm: 1 Test Strips Miscellaneous two times a day as needed 04/17/20 No Stop Date Active metformin 500 mg tablet RxNorm: 794759 1 Tablet(s) Oral every day 04/17/20 20 2019 Inactive diclofenac sodium 75 mg tablet,delayed release RxNorm: 838057 1 Tablet(s) PO BID 04/14/20 20 2021 Inactive This refill negates all other refills of this medication Sudafed 12 Hour 120 mg tablet,extended release RxNorm: 1948833 TAKE 1 TABLET BY MOUTH EVERY 12 HOURS NEEDED 03/14/20 20 2019 Inactive True Metrix Glucose Test Strip RxNorm: 1 Test Strips Miscellaneous every morning 03/13/20 20 2019 Inactive 100/container True Metrix Glucose Test Strip RxNorm: 1 Test Strips Miscellaneous QAM 02/22/20 20 2019 Inactive 100/container loperamide 2 mg tablet RxNorm: 760772 1 Tablet(s) Oral as needed take one tablet after each loose stool, maximum of 8 tablets in 24 hours 02/22/20 20 2019 Inactive levothyroxine 50 mcg tablet RxNorm: 243637 1 Tablet(s) PO daily 01/17/20 20 2020 Inactive cetirizine 10 mg tablet RxNorm: 2356517 1 Tablet(s) PO daily 01/17/20 20 2019 Inactive loperamide 2 mg tablet RxNorm: 533931 1 Tablet(s) Oral as needed take one tablet after each loose stool, maximum of 8 tablets in 24 hours 01/17/20 20 2019 Inactive quetiapine 100 mg tablet RxNorm: 123314 1 Tablet(s) Oral every night at bedtime 01/17/20 20 2019 Inactive gabapentin 300 mg capsule RxNorm: 739599 1 Capsule(s) PO TID 01/17/20 20 2019 Inactive lisinopril 2.5 mg tablet RxNorm: 249712 1 Tablet(s) PO daily 01/15/20 20 2020 Inactive Singulair 10 mg tablet RxNorm: 174239 1 Tablet(s) PO daily 01/15/20 20 2020 Inactive levothyroxine 50 mcg tablet RxNorm: 353589 1 Tablet(s) PO daily 01/15/20 20 2019 Inactive gabapentin 300 mg capsule RxNorm: 988694 1 Capsule(s) PO TID 01/15/20 20 2019 Inactive cetirizine 10 mg tablet RxNorm: 0195944 1 Tablet(s) PO daily 01/15/20 20 2019 Inactive gentamicin 0.3 % eye drops RxNorm: 572374 1 Drop(s) ophthalmic (eye) four times a day 12/29/19 20 2019 Inactive gentamicin 0.3 % eye drops RxNorm: 994910 1 Drop(s) ophthalmic (eye) four times a day 12/29/19 20 2019 Inactive gentamicin 0.3 % eye drops RxNorm: 587089 1 Drop(s) ophthalmic (eye) four times a day 12/29/19 20 2019 Inactive hydrochlorothiazide 25 mg tablet RxNorm: 455172 1 Tablet(s) Oral every day 12/21/19 20 2019 Inactive Sudafed 12 Hour 120 mg tablet,extended release RxNorm: 1613519 TAKE (1) TABLET BY MOUTH EVERY 12 HOURS NEEDED 12/21/19 20 2019 Inactive loperamide 2 mg tablet RxNorm: 297361 1 Tablet(s) Oral as needed take one tablet after each loose stool, maximum of 8 tablets in 24 hours 12/11/19 20 2019 Inactive loperamide 2 mg tablet RxNorm: 942491 1 Tablet(s) Oral as needed take one tablet after each loose stool, maximum of 8 tablets in 24 hours 12/11/19 20 2019 Inactive atorvastatin 40 mg tablet RxNorm: 758081 1 Tablet(s) Oral every day 11/29/19 20 2020 Inactive quetiapine 100 mg tablet RxNorm: 417053 1 Tablet(s) Oral every night at bedtime 11/28/19 20 2019 Inactive sertraline 100 mg tablet RxNorm: 793794 1 Tablet(s) Oral 11/28/19 20 2019 Inactive omeprazole 20 mg capsule,delayed release RxNorm: 578310 1 Capsule(s) Oral every day 11/20/19 20 2019 Inactive amoxicillin 250 mg capsule RxNorm: 647153 1 Capsule(s) Oral three times a day 11/07/19 20 2019 Inactive multivitamin with iron-mineral tablet RxNorm: 1 Tablet(s) Oral every day 10/29/19 20 2021 Inactive cetirizine 10 mg tablet RxNorm: 2550950 1 Tablet(s) PO daily 10/20/19 20 2019 Inactive This refill negates all other refills of this medication. Please do not auto refill Singulair 10 mg tablet RxNorm: 430795 1 Tablet(s) PO daily 10/20/19 20 2019 Inactive This refill negates all other refills of this medication gabapentin 300 mg capsule RxNorm: 268090 1 Capsule(s) PO TID 10/20/19 20 2019 Inactive lisinopril 2.5 mg tablet RxNorm: 489704 1 Tablet(s) PO daily 10/20/19 20 2019 Inactive levothyroxine 50 mcg tablet RxNorm: 251278 1 Tablet(s) PO daily 10/20/19 20 2019 Inactive This refill negates all other refills of this medication fenugreek seed extract 500 mg capsule RxNorm: 1 Capsule(s) Oral three times a day 10/17/19 20 2021 Inactive hydrochlorothiazide 25 mg tablet RxNorm: 551691 1 Tablet(s) Oral every day 10/17/19 20 2019 Inactive Alcohol Prep Pads RxNorm: 558888 1 Patch TOP QAM 10/16/19 20 2020 Inactive loperamide 2 mg tablet RxNorm: 747967 1 Tablet(s) Oral as needed take one [...] 2019 Inactive hydrochlorothiazide 25 mg tablet RxNorm: 700120 1 Tablet(s) Oral every day 09/19/202019 Inactive Sudafed 12 Hour 120 mg tablet,extended release RxNorm: 2152101 1 Tablet(s) Oral every 12 hours as needed 09/11/20 19 2018 Inactive omeprazole 20 mg capsule,delayed release RxNorm: 586589 1 Capsule(s) Oral every day 09/07/20 19 2019 Inactive Sudafed 12 Hour 120 mg tablet,extended release RxNorm: 5349437 1 Tablet(s) Oral every 12 hours as needed 09/04/20 19 2018 Inactive pantoprazole 40 mg tablet,delayed release RxNorm: 137206 1 Tablet(s) Oral every day 08/24/20 19 2018 Inactive discontinue any other H2Blkr. and PPI albuterol sulfate 2.5 mg/3 mL (0.083 %) solution for nebulization RxNorm: 557326 1 Vial Inhalation every four hours as needed as needed for dyspnea 08/17/202019 Inactive 60/box. This refill negates all other refills of this medication. Please do not fill early. Please do not auto refill. Symbicort 160 mcg-4.5 mcg/actuation HFA aerosol inhaler RxNorm: 2665938 2 Puff(s) INH BID 08/17/20 No Stop Date Active Alcohol Prep Pads RxNorm: 449096 1 Patch TOP QAM 08/17/20 19 2019 Inactive Ventolin HFA 90 mcg/actuation aerosol inhaler RxNorm: 496860 2 Puff(s) INH QID 08/09/20 19 2019 Inactive Please do not fill early. Please do not auto refill. This refill negates all other refills of this medication True Metrix Glucose Test Strip RxNorm: 1 Test Strips Miscellaneous QAM 08/09/20 19 2019 Inactive 100/container atorvastatin 40 mg tablet RxNorm: 179747 1 Tablet(s) Oral every day 07/04/20 19 2019 Inactive levmetamfetamine 50 mg nasal inhaler RxNorm: 1 Unit(s) NASAL Q3-4H Do not use more than every 3 hours or 8 times/24hours 06/26/20 19 2021 Inactive Please do not auto refill. This refill negates all other refills of this medication buspirone 7.5 mg tablet RxNorm: 405372 1 Tablet(s) PO BID 06/26/20 19 2020 Inactive This refill negates all other refills of this medication hydrochlorothiazide 12.5 mg tablet RxNorm: 697899 1 Tablet(s) PO QAM 06/26/20 19 2019 Inactive Ventolin HFA 90 mcg/actuation aerosol inhaler RxNorm: 214756 2 Puff(s) INH QID 06/26/20 19 2018 Inactive Please do not fill early. Please do not auto refill. This refill negates all other refills of this medication Singulair 10 mg tablet RxNorm: 830542 1 Tablet(s) PO daily 06/26/20 19 2019 Inactive This refill negates all other refills of this medication cetirizine 10 mg tablet RxNorm: 4310048 1 Tablet(s) PO daily 06/26/20 19 2019 Inactive This refill negates all other refills of this medication. Please do not auto refill levothyroxine 50 mcg tablet RxNorm: 785107 1 Tablet(s) PO daily 06/26/20 19 2019 Inactive This refill negates all other refills of this medication diclofenac sodium 75 mg tablet,delayed release RxNorm: 547707 1 Tablet(s) PO BID 06/26/20 19 2019 Inactive This refill negates all other refills of this medication ranitidine 150 mg tablet RxNorm: 019998 1 Tablet(s) PO BID 06/26/20 19 2018 [...] nebulization RxNorm: 985880 1 Vial INH QID 06/26/20 19 2018 Inactive 60/box. This refill negates all other refills of this medication. Please do not fill early. Please do not auto refill. lisinopril 2.5 mg tablet RxNorm: 144631 1 Tablet(s) PO daily 06/21/20 19 2019 Inactive gabapentin 300 mg capsule RxNorm: 560293 1 Capsule(s) PO TID 06/21/20 19 2019 Inactive atorvastatin 20 mg tablet RxNorm: 317124 1 Tablet(s) PO QHS 06/07/202018 Inactive This refill negates all other refills of this medication TRUEplus Lancets 30 gauge RxNorm: 1 Lancets Miscellaneous QAM 05/29/20 19 2018 Inactive 100/box gabapentin 300 mg capsule RxNorm: 462145 1 Capsule(s) PO TID 05/03/20 19 2018 Inactive Flintstones Complete (iron) 18 mg iron chewable tablet RxNorm: 1 Tablet(s) PO daily 04/04/20 19 2021 Inactive This refill negates all other refills of this medication gabapentin 300 mg capsule RxNorm: 707459 1 Capsule(s) PO TID as needed 02/01/20 19 2018 Inactive True Metrix Glucose Test Strip RxNorm: 1 Test Strips Miscellaneous QAM 02/01/20 19 2018 Inactive 100/container Alcohol Prep Pads RxNorm: 561219 1 Patch TOP QAM 02/01/20 19 2018 Inactive TRUEplus Lancets 30 gauge RxNorm: 1 Lancets Miscellaneous QAM 02/01/20 19 2018 Inactive 100/box lisinopril 2.5 mg tablet RxNorm: 169488 1 Tablet(s) PO daily 12/28/19 19 2018 Inactive ranitidine 150 mg tablet RxNorm: 127587 1 Tablet(s) PO BID 10/21/192018 Inactive This refill negates all other refills of this medication albuterol sulfate 2.5 mg/3 mL (0.083 %) solution for nebulization RxNorm: 602626 1 Vial INH QID 10/21/192018 Inactive 60/box. [...] this medication gabapentin 300 mg capsule RxNorm: 251913 1 Capsule(s) PO TID as needed 10/21/19 19 2018 Inactive atorvastatin 20 mg tablet RxNorm: 273006 1 Tablet(s) PO QHS 10/21/19 19 2018 Inactive This refill negates all other refills of this medication trazodone 50 mg tablet RxNorm: 541589 1 Tablet(s) PO QHS 10/21/19 19 2018 Inactive This refill negates all other refills of this medication Ventolin HFA 90 mcg/actuation aerosol inhaler RxNorm: 734976 2 Puff(s) INH QID 10/21/192018 Inactive Please do not fill early. Please do not auto refill. This refill negates all other refills of this medication Calcium 600-D3 Plus 600 mg calcium-800 unit-50 mg tablet RxNorm: 1 Tablet(s) PO daily take an additonal tablet for itching. 10/21/192018 Inactive This refill negates all other refills of this medication Singulair 10 mg tablet RxNorm: 313955 1 Tablet(s) PO daily 10/21/19 19 2018 Inactive This refill negates all other refills of this medication buspirone 7.5 mg tablet RxNorm: 869516 1 Tablet(s) PO BID 10/21/192018 Inactive This refill negates all other refills of this medication diclofenac sodium 75 mg tablet,delayed release RxNorm: 254069 1 Tablet(s) PO BID 10/21/19 19 2018 Inactive This refill negates all other refills of this medication hydrochlorothiazide 12.5 mg tablet RxNorm: 495048 1 Tablet(s) PO QAM 10/21/19 19 2018 Inactive metoprolol succinate ER 50 mg tablet,extended release 24 hr RxNorm: 036947 1 Tablet(s) PO daily 10/21/19 19 2018 Inactive This refill negates all other refills of this medication levothyroxine 50 mcg tablet RxNorm: 865378 1 Tablet(s) PO daily 10/21/192018 Inactive This refill negates all other refills of this medication cetirizine 10 mg tablet RxNorm: 1894435 1 Tablet(s) PO daily 10/21/192018 Inactive This refill negates all other refills of this medication. Please do not auto refill Flintstones Complete (iron) 18 mg iron chewable tablet RxNorm: 1 Tablet(s) PO daily 10/21/192018 Inactive This refill negates all other refills of this medication buspirone 7.5 mg tablet RxNorm: 322301 1 Tablet(s) PO BID 10/12/192018 Inactive cetirizine 10 mg tablet RxNorm: 4339059 1 Tablet(s) PO daily 09/28/202018 Inactive Guaiasorb DM 10 mg-100 mg/5 mL oral liquid RxNorm: 179263 10 Milliliter(s) PO As needed every 4 hr 09/24/20 18 2018 Inactive Vicks Vaporub 4.7 %-1.2 %-2.6 % topical ointment RxNorm: 4521778 1 Application TOP TID 09/24/20 18 2018 Inactive levmetamfetamine 50 mg nasal inhaler RxNorm: 1 Unit(s) NASAL Q3-4H 09/24/20 18 2017 Inactive sertraline 50 mg tablet RxNorm: 308692 1 Tablet(s) PO daily 09/09/20 18 2018 Inactive Please note dose trazodone 50 mg tablet RxNorm: 625819 1 Tablet(s) PO QHS 09/06/20 18 2018 Inactive sertraline 50 mg tablet RxNorm: 582020 1 Tablet(s) PO daily 09/06/20 18 2017 Inactive amoxicillin 500 mg tablet RxNorm: 245926 1 Tablet(s) PO Q12H 08/31/20 18 2017 Inactive albuterol sulfate 2.5 mg/3 mL (0.083 %) solution for nebulization RxNorm: 171179 1 Vial INH QID 08/10/20 18 2018 Inactive 60/box. Please do not fill early. Please do not auto refill. Prozac 10 mg capsule RxNorm: 823067 1 Capsule(s) PO daily 08/09/20 18 2017 Inactive buspirone 7.5 mg tablet RxNorm: 316405 1 Tablet(s) PO BID 08/09/20 18 2018 Inactive gabapentin 300 mg capsule RxNorm: 525475 1 Capsule(s) PO TID as needed 08/01/20 18 2018 Inactive hydrochlorothiazide 12.5 mg tablet RxNorm: 717831 1 Tablet(s) PO QAM 08/01/20 18 2018 Inactive ranitidine 150 mg tablet RxNorm: 417091 1 Tablet(s) PO BID 08/01/20 18 2018 Inactive Macrobid 100 mg capsule RxNorm: 691327 1 Capsule(s) PO Q12H 06/21/20 18 2017 Inactive Singulair 10 mg tablet RxNorm: 741776 1 Tablet(s) PO daily 06/14/20 18 2018 Inactive Ventolin HFA 90 mcg/actuation aerosol inhaler RxNorm: 5328809 2 Puff(s) INH QID 06/14/20 18 2018 Inactive Singulair 10 mg tablet RxNorm: 502663 1 Tablet(s) PO daily 06/14/20 18 2017 Inactive buspirone 7.5 mg tablet RxNorm: 468904 1 Tablet(s) PO BID 06/14/20 18 2017 Inactive Prozac 10 mg capsule RxNorm: 586045 1 Capsule(s) PO daily 06/14/20 18 2017 Inactive Neilmed Pediatric Sinus Rinse Refill packet RxNorm: 1 Unit Dose NASAL PRN 05/31/20 18 2021 Inactive diclofenac sodium 75 mg tablet,delayed release RxNorm: 676458 1 Tablet(s) PO BID 05/31/20 18 2017 Inactive lisinopril 2.5 mg tablet RxNorm: 090315 1 Tablet(s) PO daily 05/31/20 18 2017 Inactive metoprolol succinate ER 50 mg tablet,extended release 24 hr RxNorm: 482782 1 Tablet(s) PO daily 05/31/20 18 2017 Inactive levothyroxine 50 mcg tablet RxNorm: 322840 1 Tablet(s) PO daily 05/31/20 18 2017 Inactive TRUEplus Lancets 30 gauge RxNorm: 1 Lancets Miscellaneous QAM 05/31/20 18 2017 Inactive 100/box Ventolin HFA 90 mcg/actuation aerosol inhaler RxNorm: 666143 2 Puff(s) INH QID 05/31/20 18 2017 Inactive Aleve 220 mg capsule RxNorm: 3058943 1 Capsule(s) PO BID 05/31/20 18 2018 Inactive ranitidine 150 mg tablet RxNorm: 556175 1 Tablet(s) PO BID 05/31/20 18 2017 Inactive gabapentin 300 mg capsule RxNorm: 832636 1 Capsule(s) PO TID as needed 05/31/20 18 2017 Inactive atorvastatin 20 mg tablet RxNorm: 937623 1 Tablet(s) PO QHS 05/31/20 18 2017 Inactive True Metrix Glucose Test Strip RxNorm: 1 Test Strips Miscellaneous QA 05/31/20 18 2017 Inactive 50/container Calcium 600-D3 Plus 600 mg calcium-800 unit-50 mg tablet RxNorm: 1 Tablet(s) PO daily take an additonal tablet for itching. 05/31/20 18 2017 Inactive hydrochlorothiazide 12.5 mg tablet RxNorm: 723541 1 Tablet(s) PO QAM 05/31/20 18 2017 Inactive Flintstones Complete (iron) 18 mg iron chewable tablet RxNorm: 1 Tablet(s) PO daily 05/31/20 18 2017 Inactive d-mannose oral powder RxNorm: PO 18 2021 Inactive True Metrix Glucose Meter RxNorm: miscellaneous 08/17/20 19 2018 Inactive sertraline 50 mg tablet RxNorm: 197660 1 Tablet(s) PO daily 11/28/19 20 2019 Inactive loperamide 2 mg tablet RxNorm: 138702 oral 09/29/20 19 2018 Inactive Symbicort 160 mcg-4.5 mcg/actuation HFA aerosol inhaler RxNorm: 8488922 2 Puff(s) INH BID 08/17/20 19 2018 Inactive Medication Administered No Medication Administered data Results Observation Observation Code Item Item Code Result Date Service Location Reflex Molecular UTI Test RMUTI Molecular UTI Test SEE ATTACHMENT APPROVAL MESSAGE [facility] [address] [place] [address] PTH 74450 PTH 2731-8 62.8 pg/mL [facility] [address] [place] [address] [id number] BIN 4548-4 Glyco HGB A1C 40866-4 SEE COMMENT % [facility] [address] [place] [address] [id number] BIN 4548-4 eAG 49444-9 SEE COMMENT mg/dL [facility] [address] [place] [address] CHEM 14 (METABOLIC PANEL) 80904 Glucose 2345-7 100 mg/dL [facility] [address] [place] [address] 11207 CHEM 14 (METABOLIC PANEL) 22201 BUN 3094-0 12 mg/dL [facility] [address] [place] [address] CHEM 14 (METABOLIC PANEL) 78860 Creatinine 2160-0 0.8 mg/dL [facility] [address] [place] [address] CHEM 14 (METABOLIC PANEL) 95703 BUN/Creat Ratio 3097-3 14.9 [facility] [address] [place] [address] CHEM 14 (METABOLIC PANEL) 01054 GFR Estimated 38991-1 81 mL/min/1.73m2 [facility] [address] [place] [address] 51393 CHEM 14 (METABOLIC PANEL) 57872 GFR Estimated for Americans 76840-0 98 mL/min/1.73m2 [facility] [address] [place] [address] 24688 CHEM 14 (METABOLIC PANEL) 97566 Sodium 2951-2 140 mmol/L [facility] [address] [place] [address] 68048 CHEM 14 (METABOLIC PANEL) 51961 Potassium 2823-3 4.2 mmol/L [facility] [address] [place] [address] 98439 CHEM 14 (METABOLIC PANEL) 12285 Chloride 2075-0 103 mmol/L [facility] [address] [place] [address] 60672 CHEM 14 (METABOLIC PANEL) 02378 Total CO2 2028-9 24 mmol/L [facility] [address] [place] [address] 41533 CHEM 14 (METABOLIC PANEL) 20894 Anion Gap 1863-0 17.2 mEq/L [facility] [address] [place] [address] CHEM 14 (METABOLIC PANEL) 09484 Calculated Serum Osmolality 16483-4 290 mOsm/kg [facility] [address] [place] [address] CHEM 14 (METABOLIC PANEL) 67263 Albumin 53321-2 4.0 g/dL [facility] [address] [place] [address] CHEM 14 (METABOLIC PANEL) 11418 Total Protein 2885-2 7.7 g/dL [facility] [address] [place] [address] CHEM 14 (METABOLIC PANEL) 64034 Globulin 2336-6 3.7 g/dL [facility] [address] [place] [address] CHEM 14 (METABOLIC PANEL) 13924 Albumin/Globuli n Ratio 1759-0 1.1 [facility] [address] [place] [address] CHEM 14 (METABOLIC PANEL) 84963 ALK PHOS 6768-6 75.00 U/L [facility] [address] [place] [address] CHEM 14 (METABOLIC PANEL) 24365 SGOT/AST 1920-8 24 U/L [facility] [address] [place] [address] 52420 CHEM 14 (METABOLIC PANEL) 87401 SGPT/ALT 1743-4 36 U/L [facility] [address] [place] [address] 85892 CHEM 14 (METABOLIC PANEL) 35444 Total Bilirubin 1975-2 0.5 mg/dL [facility] [address] [place] [address] CHEM 14 (METABOLIC PANEL) 94401 Calcium 72440-9 9.4 mg/dL [facility] [address] [place] [address] 26709 CHEM 14 (METABOLIC PANEL) 75409 Corrected Calcium 70795-4 9.6 mg/dL [facility] [address] [place] [address] Reflex UA to Molecular UTI Test 15726N Glucose 2345-7 SEE COMMENT mg/dL [facility] [address] [place] [address] 23093 Reflex UA to Molecular UTI Test 01199A Protein SEE COMMENT mg/dL [facility] [address] [place] [address] 79447 Reflex UA to Molecular UTI Test 32899X Bilirubin SEE COMMENT mg/dL [facility] [address] [place] [address] 81147 Reflex UA to Molecular UTI Test 22367L Urobilinogen SEE COMMENT mg/dL [facility] [address] [place] [address] Reflex UA to Molecular UTI Test 45222V Ph SEE COMMENT [facility] [address] [place] [address] Reflex UA to Molecular UTI Test 11500G Blood SEE COMMENT mg/dL [facility] [address] [place] [address] Reflex UA to Molecular UTI Test 18322N Ketones SEE COMMENT mg/dL [facility] [address] [place] [address] Reflex UA to Molecular UTI Test 28457Q Nitrite SEE COMMENT [facility] [address] [place] [address] Reflex UA to Molecular UTI Test 40585Z Leukocytes SEE COMMENT WBCs/uL [facility] [address] [place] [address] Reflex UA to Molecular UTI Test 72024F Clarity SEE COMMENT [facility] [address] [place] [address] Reflex UA to Molecular UTI Test 45391B Specific [place] SEE COMMENT [facility] [address] [place] [address] Reflex UA to Molecular UTI Test 92958K Color SEE COMMENT [facility] [address] [place] [address] Reflex UA to Molecular UTI Test 46111S Ascorbic Acid SEE COMMENT mg/dL [facility] [address] [place] [address] MICROALBUMIN (URINE) 42128 Microalbumin 15566-4 2.7 mg/dL [facility] [address] [place] [address] MICROALBUMIN (URINE) 23135 Microalbumin/Cr eatinine Ratio 46604-1 11 MCG/MGCREAT [facility] [address] [place] [address] MICROALBUMIN (URINE) 97350 Urine Creatinine 2161-8 235.00 mg/dL [facility] [address] [place] [address] Procedures Procedure Codes Date Urinalysis, dip stick CPT-4: 06816 09/24/2020 Glucose Blood Test CPT-4: 78071 09/24/2020 Urinalysis, dip stick Leukocytes:/Small, Nitrite:/Negative, Urobilinogen:/0.2, Protein:/Negative, Ph:/5.0, Blood:/Non-Hemolyzed:, Blood:/Trace, Specific [place]:/1.020, Ketone:/Negative, Bilirubin:/Negative, Glucose:/Negative CPT-4: 12822Mkpfupz 09/24/2020 Patient Health Questionnaire CPT-4: DPHQ Electrocardiogram CPT-4: 53781 05/14/2020 Tobacco Assessment/Screening CPT-4: TCA Fall Risk Assessment SNOMED CT: 29696018 4 CPT-4: DFRA 01/01/2020 Functional Assessment CPT-4: DFA 01/01/2020 [place] Fany Assessment CPT-4: DSWA 11/04 Patient Health Questionnaire CPT-4: DPHQ [place] Fany Assessment CPT-4: DSWA 10/03 Hypertension CPT-4: HTN 10/17/2019 Fall Risk Assessment SNOMED CT: 21034892 4 CPT-4: DFRA 09/19/2019 Functional Assessment CPT-4: DFA 09/19/2019 Urinalysis, dip stick CPT-4: 39943 06/21/2019 Tobacco Assessment/Screening CPT-4: TCA Patient Health Questionnaire CPT-4: DPHQ AHA/REBECCA Classification Assessment CPT-4: DAHA 04/25/2019 Controlled Substance Report CPT-4: CTRSU 04/03 Urinalysis, dip stick CPT-4: 10788 03/28/2019 Urinalysis, dip stick CPT-4: 44267 03/28/2019 C3U-Esrupvjenlidobf CPT-4: 07479 Unknown M1Q-Tlsgsyihgktcwfl CPT-4: 82767 Unknown M9A-Klkunmwbuuyqqao CPT-4: 25653 Unknown J4K-Oyuheazjviwedxs CPT-4: 96080 Unknown O4A-Drntplsdmqnwzsn CPT-4: 37671 Unknown Gynecology Referral SNOMED CT: [id number] CPT-4: R14 Unknown Vital Signs Date Vital 09/24/2020 Blood Pressure 1: 122/84 Code: 8480-6 BMI: 53.1 Code: 57602-0 Heart Rate 1: 68 bpm Height: 4'11 Code: 8302-2 Respiratory Rate: 16 bpm Temperature: 36.7 (C) / 98.1 (F) Weight: 263 lbs Code: 04272-3 Reason For Visit Reason For Visit Effective [...] reflux disease)[ICD10: K21.9] Diagnosis: Abnormal urine finding[ICD10: R82.90] Anna Culver [place] [facility] [address] [facility] [address] [place] [address] CPT-4: 17037 09/24/2020 Plan of Care Planned Activity Notes Codes [...] right wrist-record requested Dr. Tee Shahid, hand information assurance specialist, outpatient surgery planned 10/09/2019 E11.42-250.60 Type 2 diabetes mellitus with peripheral neuropathy testing BID and PRN if feeling symptomatic 89-105, patient reports feeling symptomatic for BS >100, RBS 103 Metformin 1000mg BID - received new monitor [employer] through [employer]-participant of [employer] on [employer] -will send all diabetic supplies to patient 04/14/2020 hemoglobin 5.6 10/17/2019 Hemoglobin A1C 6.0 07/04/2019 Hgb A1C 5.6 10/17/2019 [place] Fany 04/11-instructed on good daily foot care [...] and depressed mood routine follow up [place] [facility] [place] 08/19/2020 PHQ 9 Scoere 1, admits to [...] new appt for pap in June 2020-[facility]-reports pap negative-records requested Z01.89-V72.85 Encounter for screening [...] verbalized understanding of all above topics. 09/24/2020 Patient Education: Patient Medication Summary Completed 09/24/2020 Patient Education: Obesity Completed 09/24/2020 Appointment: Anna Culvertel: [address] [place] [address] [place] ETV 08/26/2020 Appointment: Anna Culver WPtel: [address] [place] [address] [place] 08/19/2020 Appointment: Anna Culver WPtel: [address] [place] [address] [place] E[place] 07/22/2020 Appointment: Anna Culver WPtel: [address] [place] [address] [place] ETV 07/08/2020 Appointment: Gianna [place]: [address] [facility] 100 [id number] [place] ECHO 07/02/2020 Appointment: Anna Culver WPtel: [address] [place] [address] E452 06/11/2020 Appointment: Anna Culver WPtel: [address] [place] [address] E452 05/14/2020 Appointment: Anna Culver WPtel: [address] [place] [address] E452 04/17/2020 Appointment: Anna Culver WPtel: [address] [place] [address] E452 03/21/2020 Appointment: Anna Culver WPtel: [address] [place] [address] E452 02/14/2020 Appointment: Anna Culver WPtel: [address] [place] [address] E452 01/24/2020 Appointment: Anna Culver WPtel: [address] [place] [address] E452 01/01/2020 Appointment: Anna Culver WPtel: [address] [place] [address] E452 11/28/2019 Appointment: Anna Culver WPtel: [address] [place] [address] E452 10/17/2019 Appointment: Anna Culver WPtel: [address] [place] [address] E452 09/19/2019 Appointment: Sudha Hernadez WPtel: [address] [facility] [id number] E452 07/04/2019 Appointment: Sudha Hernadez WPtel: [address] [facility] [id number] E452 06/21/2019 Appointment: Charlene Oropeza WPtel: [address] [facility] [id number] E452 05/24/2019 Appointment: Mallory Delgado E452 04/27/2019 Appointment: Charlene Oropeza WPtel: [address] [facility] b [id number] E452 04/25/2019 Appointment: Rasta Palafox WPtel: [address] [facility] b [id number] E452 03/28/2019 Appointment: Rasta Palafox WPtel: [address] [facility] b [id number] E452 02/14/2019 Appointment: Rasta Palafox WPtel: [address] [facility] b [id number] E452 01/31/2019 Appointment: Rasta Palafox WPtel: [address] [place] [address] [id number] 12/27/2018 Referral: Pending Gynecology Referral Information Referral Processed Referral: Pending Pulmonolog y Referral Information Referral Processed Referral: Pending Psychiatry Referral Information Referral Initiated Referral: Pending Respirator y Services Referral Information Referral Initiated Referral: Pending Ophthalmology Referral Information Referral Initiated Referral: [facility] WPtel: [address] [facility] [address] Search Manager placed a call out to the patient to notify her that it has been recommended that she be seen by a urologist. Patient agreed to be seen, does not have a provider of choice and no transportation issues. Search Manager faxed referral and clinical notes to [facility] in [place], [place] near the patient's home. Patient to [...] seen and prefers a provider in the [place] or [place] area. Search Manager placed a call out to everyone listed in the area and the only location that was able to accept the patient's insurance was [place] [address] [place] [address] and spoke with Maylin. Maylin asked that the patient's referral, face sheet and visit notes be faxed to . Search Manager faxed over requested documents. Patient appointment confirmation letter generated and mailed to her home address. Patient to call to schedule an appointment. Processed Referral: [facility] Neurolog y WPtel: [address] [place] [address] Patient notified that it has been advised that she be seen by Neurology. Patient agreed to be seen and prefers to be seen by a provider in the [place], [place] area. Patient denies any concerns with transportation, and prefers to schedule her own appointment. Search Manager placed a call out to [facility] and spoke with Neeraj Mcfarland: who confirmed that their office is able to accept new patients and the patient's insurance. After confirming the providers fax number, science writer faxed over the patient's referral, and [...] send urine for UA reflex to molecular [id number] Right wrist pain routine follow up with Dr Watson-orthopedics last appt 07/14/2020 quit outpatient PT as didn't feel it was helpful MRI with contrast per orthopedics completed 06/30/2020- per patiet revealed torn ligament to right wrist-record requested Dr. Tee Shahid, hand information assurance specialist, outpatient surgery planned 10/09/2019 E11.42-250.60 Type 2 diabetes mellitus with peripheral neuropathy testing BID and PRN if feeling symptomatic 89-105, patient reports feeling symptomatic for BS >100, RBS 103 Metformin 1000mg BID - received new monitor [employer] through [employer]-participant of [employer] -will [...] and depressed mood routine follow up [place] [facility] [place] 08/19/2020 PHQ 9 Scoere 1, admits to [...] new appt for pap in June 2020-[facility]-reports pap negative-records requested Z01.89-V72.85 Encounter for screening [...]
--- OUTSIDE RECORDS SUMMARY | 2023-12-07 02:13 | XMS_ITS | CCD ---
Author Name Leena Culver NP Address [id number] [place] [address] [address] [place] [address] Phone Organization [facility] Phone Care Team Providers Care Applications Chemist Name Role Phone Anna Culver NP Primary Care Provider Unav ailable Unavailable Chronic Care Management Unavaila ble Summary Purpose DataExchange Insurance Providers Payer name Policy type / Coverage type Covered democrat ID Effective Begin Date Effective End Date SUKI MAYO [id number] Unknown Unknown Family history Mother Diagnosis Age [...] Unknown Disability 05/31/[address]: 326954116 Has never s moked or chewed tobacco 05/31/[address]: 646842959 Never drinks alco hol 05/31/2018 Has the [...] atus Urinary tract infection ICD-10: N39.0 ICD-9: 599.0 [...] use ICD-10: Z01.89 ICD-9: V72.85 01/01/2020 Active [place] eye ICD-10: H10.029 ICD-9: 372.03 12/29/2019 Active [...] ICD-10: UXZ.01 ICD-9: XZ0.1 04/27/2019 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 [...] Fill Instructions Macrobid 100 mg capsule RxNorm: 680981 1 Capsule(s) Oral every 12 hours with food 10/01/20 20 2020 Inactive omeprazole 20 mg capsule,delayed release RxNorm: 444436 1 Capsule(s) Oral two times a day 09/24/20 20 2021 Inactive metformin 1,000 mg tablet RxNorm: 794197 1 Tablet(s) Oral two times a day 08/19/20 20 2020 Inactive start on September 11, 2020 metformin 500 mg tablet RxNorm: 506605 1 Tablet(s) Oral two times a day take with 500mg to equal 1000mg 08/19/20 20 2019 Inactive gabapentin 300 mg capsule RxNorm: 774046 TAKE 1 CAPSULE BY MOUTH THREE TIMES DAILY 07/11/20 20 2020 Inactive cetirizine 10 mg tablet RxNorm: 8348494 TAKE (1) TABLET BY MOUTH DAILY 07/11/20 20 2020 Inactive metformin 500 mg tablet RxNorm: 887622 1 Tablet(s) Oral two times a day 07/08/20 20 2019 Inactive loperamide 2 mg tablet RxNorm: 204196 1 Tablet(s) Oral as needed take one tablet after each loose stool, maximum of 8 tablets in 24 hours 06/24/20 20 2021 Inactive Sudafed 12 Hour 120 mg tablet,extended release RxNorm: 3764922 TAKE 1 TABLET BY MOUTH EVERY 12 HOURS NEEDED 06/11/20 20 2019 Inactive hydrochlorothiazide 25 mg tablet RxNorm: 820819 TAKE (1) TABLET BY MOUTH EVERY DAY 06/11/20 20 2019 Inactive omeprazole 20 mg capsule,delayed release RxNorm: 362268 TAKE 1 CAPSULE BY MOUTH EVERY DAY 05/14/20 20 2020 Inactive metformin 500 mg tablet RxNorm: 528836 1 Tablet(s) Oral every day 05/12/20 20 2019 Inactive True Metrix Glucose Test Strip RxNorm: 1 Test Strips Miscellaneous two times a day as needed 04/17/20 No Stop Date Active metformin 500 mg tablet RxNorm: 479852 1 Tablet(s) Oral every day 04/17/20 20 2019 Inactive diclofenac sodium 75 mg tablet,delayed release RxNorm: 531668 1 Tablet(s) PO BID 04/14/20 20 2021 Inactive This refill negates all other refills of this medication Sudafed 12 Hour 120 mg tablet,extended release RxNorm: 7723282 TAKE 1 TABLET BY MOUTH EVERY 12 HOURS NEEDED 03/14/20 20 2019 Inactive True Metrix Glucose Test Strip RxNorm: 1 Test Strips Miscellaneous every morning 03/13/20 20 2019 Inactive 100/container True Metrix Glucose Test Strip RxNorm: 1 Test Strips Miscellaneous QA 02/22/20 20 2019 Inactive 100/container loperamide 2 mg tablet RxNorm: 457612 1 Tablet(s) Oral as needed take one tablet after each loose stool, maximum of 8 tablets in 24 hours 02/22/20 20 2019 Inactive levothyroxine 50 mcg tablet RxNorm: 431108 1 Tablet(s) PO daily 01/17/20 20 2020 Inactive cetirizine 10 mg tablet RxNorm: 7562795 1 Tablet(s) PO daily 01/17/20 20 2019 Inactive loperamide 2 mg tablet RxNorm: 629876 1 Tablet(s) Oral as needed take one tablet after each loose stool, maximum of 8 tablets in 24 hours 01/17/20 20 2019 Inactive quetiapine 100 mg tablet RxNorm: 092777 1 Tablet(s) Oral every night at bedtime 01/17/20 20 2019 Inactive gabapentin 300 mg capsule RxNorm: 658045 1 Capsule(s) PO TID 01/17/20 20 2019 Inactive lisinopril 2.5 mg tablet RxNorm: 047663 1 Tablet(s) PO daily 01/15/20 20 2020 Inactive Singulair 10 mg tablet RxNorm: 633070 1 Tablet(s) PO daily 01/15/20 20 2020 Inactive levothyroxine 50 mcg tablet RxNorm: 027797 1 Tablet(s) PO daily 01/15/20 20 2019 Inactive gabapentin 300 mg capsule RxNorm: 672513 1 Capsule(s) PO TID 01/15/20 20 2019 Inactive cetirizine 10 mg tablet RxNorm: 9703422 1 Tablet(s) PO daily 01/15/20 20 2019 Inactive gentamicin 0.3 % eye drops RxNorm: 454397 1 Drop(s) ophthalmic (eye) four times a day 12/29/19 20 2019 Inactive gentamicin 0.3 % eye drops RxNorm: 074306 1 Drop(s) ophthalmic (eye) four times a day 12/29/19 20 2019 Inactive gentamicin 0.3 % eye drops RxNorm: 487162 1 Drop(s) ophthalmic (eye) four times a day 12/29/19 20 2019 Inactive hydrochlorothiazide 25 mg tablet RxNorm: 595360 1 Tablet(s) Oral every day 12/21/19 20 2019 Inactive Sudafed 12 Hour 120 mg tablet,extended release RxNorm: 2986406 TAKE (1) TABLET BY MOUTH EVERY 12 HOURS NEEDED 12/21/19 20 2019 Inactive loperamide 2 mg tablet RxNorm: 211565 1 Tablet(s) Oral as needed take one tablet after each loose stool, maximum of 8 tablets in 24 hours 12/11/19 20 2019 Inactive loperamide 2 mg tablet RxNorm: 925921 1 Tablet(s) Oral as needed take one tablet after each loose stool, maximum of 8 tablets in 24 hours 12/11/19 20 2019 Inactive atorvastatin 40 mg tablet RxNorm: 358148 1 Tablet(s) Oral every day 11/29/19 20 2020 Inactive quetiapine 100 mg tablet RxNorm: 068522 1 Tablet(s) Oral every night at bedtime 11/28/19 20 2019 Inactive sertraline 100 mg tablet RxNorm: 940715 1 Tablet(s) Oral 11/28/19 20 2019 Inactive omeprazole 20 mg capsule,delayed release RxNorm: 507515 1 Capsule(s) Oral every day 11/20/19 20 2019 Inactive amoxicillin 250 mg capsule RxNorm: 817570 1 Capsule(s) Oral three times a day 11/07/19 20 2019 Inactive multivitamin with iron-mineral tablet RxNorm: 1 Tablet(s) Oral every day 10/29/19 20 2021 Inactive cetirizine 10 mg tablet RxNorm: 6927167 1 Tablet(s) PO daily 10/20/19 20 2019 Inactive This refill negates all other refills of this medication. Please do not auto refill Singulair 10 mg tablet RxNorm: 733219 1 Tablet(s) PO daily 10/20/19 20 2019 Inactive This refill negates all other refills of this medication gabapentin 300 mg capsule RxNorm: 621943 1 Capsule(s) PO TID 10/20/192019 Inactive lisinopril 2.5 mg tablet RxNorm: 562439 1 Tablet(s) PO daily 10/20/19 20 2019 Inactive levothyroxine 50 mcg tablet RxNorm: 041195 1 Tablet(s) PO daily 10/20/19 20 2019 Inactive This refill negates all other refills of this medication fenugreek seed extract 500 mg capsule RxNorm: 1 Capsule(s) Oral three times a day 10/17/19 20 2021 Inactive hydrochlorothiazide 25 mg tablet RxNorm: 745870 1 Tablet(s) Oral every day 10/17/19 20 2019 Inactive Alcohol Prep Pads RxNorm: 665656 1 Patch TOP QAM 10/16/19 20 2020 Inactive loperamide 2 mg tablet RxNorm: 856889 1 Tablet(s) Oral as needed take one [...] 2019 Inactive hydrochlorothiazide 25 mg tablet RxNorm: 427887 1 Tablet(s) Oral every day 09/19/20 19 2019 Inactive Sudafed 12 Hour 120 mg tablet,extended release RxNorm: 1633475 1 Tablet(s) Oral every 12 hours as needed 09/11/20 19 2018 Inactive omeprazole 20 mg capsule,delayed release RxNorm: 671137 1 Capsule(s) Oral every day 09/07/20 19 2019 Inactive Sudafed 12 Hour 120 mg tablet,extended release RxNorm: 1908782 1 Tablet(s) Oral every 12 hours as needed 09/04/20 19 2018 Inactive pantoprazole 40 mg tablet,delayed release RxNorm: 585040 1 Tablet(s) Oral every day 08/24/20 19 2018 Inactive discontinue any other H2Blkr. and PPI albuterol sulfate 2.5 mg/3 mL (0.083 %) solution for nebulization RxNorm: 025356 1 Vial Inhalation every four hours as needed as needed for dyspnea 08/17/20 19 2019 Inactive 60/box. This refill negates all other refills of this medication. Please do not fill early. Please do not auto refill. Symbicort 160 mcg-4.5 mcg/actuation HFA aerosol inhaler RxNorm: 9838240 2 Puff(s) INH BID 08/17/20 19 No Stop Date Active Alcohol Prep Pads RxNorm: 895830 1 Patch TOP QAM 08/17/20 19 2019 Inactive Ventolin HFA 90 mcg/actuation aerosol inhaler RxNorm: 840747 2 Puff(s) INH QID 08/09/20 19 2019 Inactive Please do not fill early. Please do not auto refill. This refill negates all other refills of this medication True Metrix Glucose Test Strip RxNorm: 1 Test Strips Miscellaneous QAM 08/09/20 19 2019 Inactive 100/container atorvastatin 40 mg tablet RxNorm: 446746 1 Tablet(s) Oral every day 07/04/20 19 2019 Inactive levmetamfetamine 50 mg nasal inhaler RxNorm: 1 Unit(s) NASAL Q3-4H Do not use more than every 3 hours or 8 times/24hours 06/26/20 19 2021 Inactive Please do not auto refill. This refill negates all other refills of this medication buspirone 7.5 mg tablet RxNorm: 671036 1 Tablet(s) PO BID 06/26/20 19 2020 Inactive This refill negates all other refills of this medication hydrochlorothiazide 12.5 mg tablet RxNorm: 159397 1 Tablet(s) PO QAM 06/26/20 19 2019 Inactive Ventolin HFA 90 mcg/actuation aerosol inhaler RxNorm: 084279 2 Puff(s) INH QID 06/26/20 19 2018 Inactive Please do not fill early. Please do not auto refill. This refill negates all other refills of this medication Singulair 10 mg tablet RxNorm: 570083 1 Tablet(s) PO daily 06/26/20 19 2019 Inactive This refill negates all other refills of this medication cetirizine 10 mg tablet RxNorm: 4423814 1 Tablet(s) PO daily 06/26/20 19 2019 Inactive This refill negates all other refills of this medication. Please do not auto refill levothyroxine 50 mcg tablet RxNorm: 385600 1 Tablet(s) PO daily 06/26/20 19 2019 Inactive This refill negates all other refills of this medication diclofenac sodium 75 mg tablet,delayed release RxNorm: 873681 1 Tablet(s) PO BID 06/26/20 19 2019 Inactive This refill negates all other refills of this medication ranitidine 150 mg tablet RxNorm: 425120 1 Tablet(s) PO BID 06/26/20 19 2018 Inactive This refill negates all other refills of this medication Calcium 600-D3 Plus (mag-zinc) 600 mg calcium-800 unit-50 mg tablet RxNorm: 1 Tablet(s) PO daily take an additonal tablet for itching. 06/26/20 19 2018 Inactive This refill negates all other refills of this medication albuterol sulfate 2.5 mg/3 mL (0.083 %) solution for nebulization RxNorm: 623681 1 Vial INH QID 06/26/20 19 2018 Inactive 60/box. This refill negates all other refills of this medication. Please do not fill early. Please do not auto refill. lisinopril 2.5 mg tablet RxNorm: 802754 1 Tablet(s) PO daily 06/21/20 19 2019 Inactive gabapentin 300 mg capsule RxNorm: 680940 1 Capsule(s) PO TID 06/21/20 19 2019 Inactive atorvastatin 20 mg tablet RxNorm: 239732 1 Tablet(s) PO QHS 06/07/20 19 2018 Inactive This refill negates all other refills of this medication TRUEplus Lancets 30 gauge RxNorm: 1 Lancets Miscellaneous QAM 05/29/20 19 2018 Inactive 100/box gabapentin 300 mg capsule RxNorm: 061441 1 Capsule(s) PO TID 05/03/20 19 2018 Inactive Flintstones Complete (iron) 18 mg iron chewable tablet RxNorm: 1 Tablet(s) PO daily 04/04/20 19 2021 Inactive This refill negates all other refills of this medication gabapentin 300 mg capsule RxNorm: 756840 1 Capsule(s) PO TID as needed 02/01/20 19 2018 Inactive True Metrix Glucose Test Strip RxNorm: 1 Test Strips Miscellaneous QA 02/01/20 19 2018 Inactive 100/container Alcohol Prep Pads RxNorm: 323372 1 Patch TOP QAM 02/01/20 19 2018 Inactive TRUEplus Lancets 30 gauge RxNorm: 1 Lancets Miscellaneous QAM 02/01/20 19 2018 Inactive 100/box lisinopril 2.5 mg tablet RxNorm: 316819 1 Tablet(s) PO daily 12/28/19 19 2018 Inactive ranitidine 150 mg tablet RxNorm: 759796 1 Tablet(s) PO BID 10/21/192018 Inactive This refill negates all other refills of this medication albuterol sulfate 2.5 mg/3 mL (0.083 %) solution for nebulization RxNorm: 182859 1 Vial INH QID 10/21/192018 Inactive 60/box. [...] this medication gabapentin 300 mg capsule RxNorm: 415443 1 Capsule(s) PO TID as needed 10/21/192018 Inactive atorvastatin 20 mg tablet RxNorm: 110331 1 Tablet(s) PO QHS 10/21/19 19 2018 Inactive This refill negates all other refills of this medication trazodone 50 mg tablet RxNorm: 321567 1 Tablet(s) PO QHS 10/21/19 19 2018 Inactive This refill negates all other refills of this medication Ventolin HFA 90 mcg/actuation aerosol inhaler RxNorm: 005734 2 Puff(s) INH QID 10/21/192018 Inactive Please do not fill early. Please do not auto refill. This refill negates all other refills of this medication Calcium 600-D3 Plus 600 mg calcium-800 unit-50 mg tablet RxNorm: 1 Tablet(s) PO daily take an additonal tablet for itching. 10/21/19 19 2018 Inactive This refill negates all other refills of this medication Singulair 10 mg tablet RxNorm: 934225 1 Tablet(s) PO daily 10/21/192018 Inactive This refill negates all other refills of this medication buspirone 7.5 mg tablet RxNorm: 469955 1 Tablet(s) PO BID 10/21/192018 Inactive This refill negates all other refills of this medication diclofenac sodium 75 mg tablet,delayed release RxNorm: 954233 1 Tablet(s) PO BID 10/21/192018 Inactive This refill negates all other refills of this medication hydrochlorothiazide 12.5 mg tablet RxNorm: 508547 1 Tablet(s) PO QAM 10/21/192018 Inactive metoprolol succinate ER 50 mg tablet,extended release 24 hr RxNorm: 770848 1 Tablet(s) PO daily 10/21/192018 Inactive This refill negates all other refills of this medication levothyroxine 50 mcg tablet RxNorm: 967010 1 Tablet(s) PO daily 10/21/192018 Inactive This refill negates all other refills of this medication cetirizine 10 mg tablet RxNorm: 9972052 1 Tablet(s) PO daily 10/21/192018 Inactive This refill negates all other refills of this medication. Please do not auto refill Flintstones Complete (iron) 18 mg iron chewable tablet RxNorm: 1 Tablet(s) PO daily 10/21/192018 Inactive This refill negates all other refills of this medication buspirone 7.5 mg tablet RxNorm: 934691 1 Tablet(s) PO BID 10/12/19 19 2018 Inactive cetirizine 10 mg tablet RxNorm: 4638533 1 Tablet(s) PO daily 09/28/20 18 2018 Inactive Guaiasorb DM 10 mg-100 mg/5 mL oral liquid RxNorm: 489727 10 Milliliter(s) PO As needed every 4 hr 09/24/20 18 2018 Inactive Vicks Vaporub 4.7 %-1.2 %-2.6 % topical ointment RxNorm: 6212596 1 Application TOP TID 09/24/20 18 2018 Inactive levmetamfetamine 50 mg nasal inhaler RxNorm: 1 Unit(s) NASAL Q3-4H 09/24/20 18 2017 Inactive sertraline 50 mg tablet RxNorm: 731731 1 Tablet(s) PO daily 09/09/20 18 2018 Inactive Please note dose trazodone 50 mg tablet RxNorm: 855839 1 Tablet(s) PO QHS 09/06/20 18 2018 Inactive sertraline 50 mg tablet RxNorm: 591389 1 Tablet(s) PO daily 09/06/20 18 2017 Inactive amoxicillin 500 mg tablet RxNorm: 882182 1 Tablet(s) PO Q12H 08/31/20 18 2017 Inactive albuterol sulfate 2.5 mg/3 mL (0.083 %) solution for nebulization RxNorm: 579159 1 Vial INH QID 08/10/20 18 2018 Inactive 60/box. Please do not fill early. Please do not auto refill. Prozac 10 mg capsule RxNorm: 300568 1 Capsule(s) PO daily 08/09/20 18 2017 Inactive buspirone 7.5 mg tablet RxNorm: 243374 1 Tablet(s) PO BID 08/09/20 18 2018 Inactive gabapentin 300 mg capsule RxNorm: 359272 1 Capsule(s) PO TID as needed 08/01/20 18 2018 Inactive hydrochlorothiazide 12.5 mg tablet RxNorm: 582074 1 Tablet(s) PO QAM 08/01/20 18 2018 Inactive ranitidine 150 mg tablet RxNorm: 091458 1 Tablet(s) PO BID 08/01/20 18 2018 Inactive Macrobid 100 mg capsule RxNorm: 873525 1 Capsule(s) PO Q12H 06/21/20 18 2017 Inactive Singulair 10 mg tablet RxNorm: 685153 1 Tablet(s) PO daily 06/14/20 18 2018 Inactive Ventolin HFA 90 mcg/actuation aerosol inhaler RxNorm: 6359121 2 Puff(s) INH QID 06/14/20 18 2018 Inactive Singulair 10 mg tablet RxNorm: 569863 1 Tablet(s) PO daily 06/14/20 18 2017 Inactive buspirone 7.5 mg tablet RxNorm: 976095 1 Tablet(s) PO BID 06/14/20 18 2017 Inactive Prozac 10 mg capsule RxNorm: 934917 1 Capsule(s) PO daily 06/14/20 18 2017 Inactive Neilmed Pediatric Sinus Rinse Refill packet RxNorm: 1 Unit Dose NASAL PRN 05/31/20 18 2021 Inactive diclofenac sodium 75 mg tablet,delayed release RxNorm: 609487 1 Tablet(s) PO BID 05/31/20 18 2017 Inactive lisinopril 2.5 mg tablet RxNorm: 646140 1 Tablet(s) PO daily 05/31/20 18 2017 Inactive metoprolol succinate ER 50 mg tablet,extended release 24 hr RxNorm: 609346 1 Tablet(s) PO daily 05/31/20 18 2017 Inactive levothyroxine 50 mcg tablet RxNorm: 511057 1 Tablet(s) PO daily 05/31/20 18 2017 Inactive TRUEplus Lancets 30 gauge RxNorm: 1 Lancets Miscellaneous QAM 05/31/20 18 2017 Inactive 100/box Ventolin HFA 90 mcg/actuation aerosol inhaler RxNorm: 642306 2 Puff(s) INH QID 05/31/20 18 2017 Inactive Aleve 220 mg capsule RxNorm: 7898743 1 Capsule(s) PO BID 05/31/20 18 2018 Inactive ranitidine 150 mg tablet RxNorm: 774495 1 Tablet(s) PO BID 05/31/20 18 2017 Inactive gabapentin 300 mg capsule RxNorm: 621110 1 Capsule(s) PO TID as needed 05/31/20 18 2017 Inactive atorvastatin 20 mg tablet RxNorm: 257477 1 Tablet(s) PO QHS 05/31/20 18 2017 Inactive True Metrix Glucose Test Strip RxNorm: 1 [facility] 05/31/20 18 2017 Inactive 50/container Calcium 600-D3 Plus 600 mg calcium-800 unit-50 mg tablet RxNorm: 1 Tablet(s) PO daily take an additonal tablet for itching. 05/31/20 18 2017 Inactive hydrochlorothiazide 12.5 mg tablet RxNorm: 203221 1 Tablet(s) PO QAM 05/31/20 18 2017 Inactive Flintstones Complete (iron) 18 mg iron chewable tablet RxNorm: 1 Tablet(s) PO daily 05/31/20 18 2017 Inactive d-mannose oral powder RxNorm: PO 18 2021 Inactive True Metrix Glucose Meter RxNorm: miscellaneous 08/17/20 19 2018 Inactive sertraline 50 mg tablet RxNorm: 363830 1 Tablet(s) PO daily 11/28/19 20 2019 Inactive loperamide 2 mg tablet RxNorm: 662906 oral 09/29/20 19 2018 Inactive Symbicort 160 mcg-4.5 mcg/actuation HFA aerosol inhaler RxNorm: 3609847 2 Puff(s) INH BID 08/17/20 19 2018 Inactive Medication Administered No Medication Administered data Procedures Procedure Codes Date Urinalysis, dip stick CPT-4: 81157 09/24/2020 Patient Health Questionnaire CPT-4: DPHQ Electrocardiogram CPT-4: 61901 05/14/2020 Tobacco Assessment/Screening CPT-4: TCA Fall Risk Assessment SNOMED CT: 81870501 4 CPT-4: DFRA 01/01/2020 Functional Assessment CPT-4: DFA 01/01/2020 [place] Assessment CPT-4: DSWA 11/04 Patient Health Questionnaire CPT-4: DPHQ [place] Assessment CPT-4: DSWA 10/03 Hypertension CPT-4: HTN 10/17/2019 Fall Risk Assessment SNOMED CT: 62725431 4 CPT-4: DFRA 09/19/2019 Functional Assessment CPT-4: DFA 09/19/2019 Urinalysis, dip stick CPT-4: 99797 06/21/2019 Tobacco Assessment/Screening CPT-4: TCA Patient Health Questionnaire CPT-4: DPHQ AHA/REBECCA Classification Assessment CPT-4: DAHA 04/25/2019 Controlled Substance Report CPT-4: CTRSU 04/03 Urinalysis, dip stick CPT-4: 46821 03/28/2019 Urinalysis, dip stick CPT-4: 89979 03/28/2019 [id number]-Eutztzubwctemwy CPT-4: 39830 Unknown G1L-Ydbtrlpxvhegsqy CPT-4: 37945 Unknown P0C-Nmyigmggazbgmhx CPT-4: 25961 Unknown P8K-Dtssunmjdkmjxwq CPT-4: 14123 Unknown S5L-Qruvcchjssmdigo CPT-4: 09206 Unknown Gynecology Referral SNOMED CT: 351617125 CPT-4: R14 Unknown Reason For Visit No Reason For Visit data Plan of Care Planned Activity Notes Codes Status Date Patient Education: Patient Medication Summary Completed 10/01/2020 Appointment: Anna Culver WPtel: [address] [place] [address] E410 09/24/2020 Appointment: Anna Culver WPtel: [address] [place] [address] [place] ETV 08/26/2020 Appointment: Anna Culver WPtel: [address] [place] [address] [place] ETV 08/19/2020 Appointment: Anna Culver WPtel: [address] [place] [address] [place] ETV 07/22/2020 Appointment: Anna Culver WPtel: [id number] [place] [address] [place] ETV 07/08/2020 Appointment: Gianna Birmingham Lita: [address] [facility] 100 [id number] [place] ECHO 07/02/2020 Appointment: Anna Culver WPtel: [id number] [place] [address] E452 06/11/2020 Appointment: Anna Culver WPtel: [address] [place] [address] E452 05/14/2020 Appointment: Anna Culver WPtel: [address] [place] [address] E452 04/17/2020 Appointment: Anna Culver WPtel: [address] [place] [address] E452 03/21/2020 Appointment: Anna Culver WPtel: [address] [place] [address] E452 02/14/2020 Appointment: Anna Culver WPtel: [address] [place] [address] E452 01/24/2020 Appointment: Anna Culver WPtel: [address] [place] [address] E452 01/01/2020 Appointment: Anna Culver WPtel: [address] [place] [address] [place] E452 11/28/2019 Appointment: Anna Culver WPtel: [address] [place] [address] [place] E452 10/17/2019 Appointment: Anna Culver WPtel: [address] [place] [address] [place] E452 09/19/2019 Appointment: Sudha Hernadez WPtel: [address] [facility] [address] [id number] [place] E452 07/04/2019 Appointment: Lori Hernadezmina WPtel: [address] [facility] [id number] E452 06/21/2019 Appointment: Charlene Oropeza WPtel: [address] [facility] [id number] E452 05/24/2019 Appointment: Mallory Delgado E452 04/27/2019 Appointment: Charlene Oropeza WPtel: [address] [facility] [id number] E452 04/25/2019 Appointment: Rasta Palafox WPtel: [address] [facility] [id number] E452 03/28/2019 Appointment: Rasta Palafox WPtel: [address] [place] [address] [id number] E452 02/14/2019 Appointment: Rasta Palafox WPtel: [address] [place] [address] [id number] E452 01/31/2019 Appointment: Rasta Palafox WPtel: [address] [place] [address] [id number] E420 12/27/2018 Referral: Pending Gynecology Referral Information Referral Processed Referral: Pending Pulmonolog y Referral Information Referral Processed Referral: Pending Psychiatry Referral Information Referral Initiated Referral: Pending Respirator y Services Referral Information Referral Initiated Referral: Pending Ophthalmology Referral Information Referral Initiated Referral: [facility] WPtel: [facility] [address] [employer] placed a call out to the patient to notify her that it has been recommended that she be seen by a urologist. Patient agreed to be seen, does not have a provider of choice and no transportation issues. [employer] faxed referral and clinical notes to [facility] in [place], [place] near the patient's home. Patient to [...] seen and prefers a provider in the [place] or [place] area. [employer] placed a call out to everyone listed in the area and the only location that was able to accept the patient's insurance was [facility] [place] [address] and spoke with Maylin. Maylin asked that the patient's referral, face sheet and visit notes be faxed to . [employer] faxed over requested documents. Patient appointment confirmation letter generated and mailed to her home address. Patient to call to schedule an appointment. Processed Referral: [facility] Neurolog y WPtel: [address] [place] [address] Patient notified that it has been advised that she be seen by Neurology. Patient agreed to be seen and prefers to be seen by a provider in the [place], [place] area. Patient denies any concerns with transportation, and prefers to schedule her own appointment. [employer] placed a call out to [facility] and spoke with [...]
--- OUTSIDE RECORDS SUMMARY | 2023-12-07 02:13 | XMS_ITS | CCD ---
Author Name Leena Culver NP Address [id number] [place] [address] [place] [address] Phone Organization [email or web address] Phone Care Team Providers Care Client Manager Name Role Phone Anna Culver NP Primary Care Provider Unav ailable Unavailable Chronic Care Management Unavaila ble Summary Purpose DataExchange Insurance Providers Payer name Policy type / Coverage type Covered democrat ID Effective Begin Date Effective End Date SUKI MAYO [id number] Unknown Unknown Family history Mother Diagnosis Age [...] Unknown Disability 05/31/[address]: 902992867 Has never s moked or chewed tobacco 05/31/[address]: 497051723 Never drinks alco hol 05/31/2018 Has the [...] use ICD-10: Z01.89 ICD-9: V72.85 01/01/2020 Active [place] [facility] ICD-10: H10.029 ICD-9: 372.03 12/29/2019 Active [...] ICD-10: UXZ.01 ICD-9: XZ0.1 04/27/2019 Active 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 ICD-10: Z79.899 [...] Headache ICD-10: R51 ICD-9: 784.0 10/03/2018 Active group home (current) use of non-steroidal anti-inflammatories (NSAID) ICD-10: Z79.1 ICD-9: V58.64 06/13/2018 Active Medications Medication Codes Instructions Start Date Stop Date Status Fill Instructions metformin 1,000 mg tablet RxNorm: 758056 1 Tablet(s) Oral two times a day 08/19/20 20 2020 Inactive start on September 11, 2020 metformin 500 mg tablet RxNorm: 133900 1 Tablet(s) Oral two times a day take with 500mg to equal 1000mg 08/19/20 20 2019 Inactive gabapentin 300 mg capsule RxNorm: 395291 TAKE 1 CAPSULE BY MOUTH THREE TIMES DAILY 07/11/202020 Inactive cetirizine 10 mg tablet RxNorm: 0471659 TAKE (1) TABLET BY MOUTH DAILY 07/11/20 20 2020 Inactive metformin 500 mg tablet RxNorm: 223751 1 Tablet(s) Oral two times a day 07/08/20 20 2019 Inactive loperamide 2 mg tablet RxNorm: 431288 1 Tablet(s) Oral as needed take one tablet after each loose stool, maximum of 8 tablets in 24 hours 06/24/202021 Inactive Sudafed 12 Hour 120 mg tablet,extended release RxNorm: 1492161 TAKE 1 TABLET BY MOUTH EVERY 12 HOURS NEEDED 06/11/20 20 2019 Inactive hydrochlorothiazide 25 mg tablet RxNorm: 935410 TAKE (1) TABLET BY MOUTH EVERY DAY 06/11/20 20 2019 Inactive omeprazole 20 mg capsule,delayed release RxNorm: 593926 TAKE 1 CAPSULE BY MOUTH EVERY DAY 05/14/20 20 2020 Inactive metformin 500 mg tablet RxNorm: 373569 1 Tablet(s) Oral every day 05/12/20 20 2019 Inactive True Metrix Glucose Test Strip RxNorm: 1 Test Strips Miscellaneous two times a day as needed 04/17/20 No Stop Date Active metformin 500 mg tablet RxNorm: 660431 1 Tablet(s) Oral every day 04/17/20 20 2019 Inactive diclofenac sodium 75 mg tablet,delayed release RxNorm: 363033 1 Tablet(s) PO BID 04/14/20 20 2021 Inactive This refill negates all other refills of this medication Sudafed 12 Hour 120 mg tablet,extended release RxNorm: 8400961 TAKE 1 TABLET BY MOUTH EVERY 12 HOURS NEEDED 03/14/20 20 2019 Inactive True Metrix Glucose Test Strip RxNorm: 1 Test Strips Miscellaneous every morning 03/13/20 20 2019 Inactive 100/container True Metrix Glucose Test Strip RxNorm: 1 Test Strips Miscellaneous QAM 02/22/20 20 2019 Inactive 100/container loperamide 2 mg tablet RxNorm: 874844 1 Tablet(s) Oral as needed take one tablet after each loose stool, maximum of 8 tablets in 24 hours 02/22/20 20 2019 Inactive levothyroxine 50 mcg tablet RxNorm: 235157 1 Tablet(s) PO daily 01/17/20 20 2020 Inactive cetirizine 10 mg tablet RxNorm: 9819156 1 Tablet(s) PO daily 01/17/20 20 2019 Inactive loperamide 2 mg tablet RxNorm: 152858 1 Tablet(s) Oral as needed take one tablet after each loose stool, maximum of 8 tablets in 24 hours 01/17/20 20 2019 Inactive quetiapine 100 mg tablet RxNorm: 964386 1 Tablet(s) Oral every night at bedtime 01/17/20 20 2019 Inactive gabapentin 300 mg capsule RxNorm: 572026 1 Capsule(s) PO TID 01/17/20 20 2019 Inactive lisinopril 2.5 mg tablet RxNorm: 208218 1 Tablet(s) PO daily 01/15/20 20 2020 Inactive Singulair 10 mg tablet RxNorm: 785060 1 Tablet(s) PO daily 01/15/20 20 2020 Inactive levothyroxine 50 mcg tablet RxNorm: 423779 1 Tablet(s) PO daily 01/15/20 20 2019 Inactive gabapentin 300 mg capsule RxNorm: 369004 1 Capsule(s) PO TID 01/15/20 20 2019 Inactive cetirizine 10 mg tablet RxNorm: 3120259 1 Tablet(s) PO daily 01/15/20 20 2019 Inactive gentamicin 0.3 % eye drops RxNorm: 084480 1 Drop(s) ophthalmic (eye) four times a day 12/29/19 20 2019 Inactive gentamicin 0.3 % eye drops RxNorm: 999709 1 Drop(s) ophthalmic (eye) four times a day 12/29/19 20 2019 Inactive gentamicin 0.3 % eye drops RxNorm: 897903 1 Drop(s) ophthalmic (eye) four times a day 12/29/19 20 2019 Inactive hydrochlorothiazide 25 mg tablet RxNorm: 258651 1 Tablet(s) Oral every day 12/21/19 20 2019 Inactive Sudafed 12 Hour 120 mg tablet,extended release RxNorm: 9653606 TAKE (1) TABLET BY MOUTH EVERY 12 HOURS NEEDED 12/21/19 20 2019 Inactive loperamide 2 mg tablet RxNorm: 361694 1 Tablet(s) Oral as needed take one tablet after each loose stool, maximum of 8 tablets in 24 hours 12/11/19 20 2019 Inactive loperamide 2 mg tablet RxNorm: 488015 1 Tablet(s) Oral as needed take one tablet after each loose stool, maximum of 8 tablets in 24 hours 12/11/19 20 2019 Inactive atorvastatin 40 mg tablet RxNorm: 403000 1 Tablet(s) Oral every day 11/29/19 20 2020 Inactive quetiapine 100 mg tablet RxNorm: 307418 1 Tablet(s) Oral every night at bedtime 11/28/19 20 2019 Inactive sertraline 100 mg tablet RxNorm: 122672 1 Tablet(s) Oral 11/28/19 20 2019 Inactive omeprazole 20 mg capsule,delayed release RxNorm: 186942 1 Capsule(s) Oral every day 11/20/19 20 2019 Inactive amoxicillin 250 mg capsule RxNorm: 243346 1 Capsule(s) Oral three times a day 11/07/19 20 2019 Inactive multivitamin with iron-mineral tablet RxNorm: 1 Tablet(s) Oral every day 10/29/19 20 2021 Inactive cetirizine 10 mg tablet RxNorm: 7116660 1 Tablet(s) PO daily 10/20/19 20 2019 Inactive This refill negates all other refills of this medication. Please do not auto refill Singulair 10 mg tablet RxNorm: 906008 1 Tablet(s) PO daily 10/20/192019 Inactive This refill negates all other refills of this medication gabapentin 300 mg capsule RxNorm: 341947 1 Capsule(s) PO TID 10/20/192019 Inactive lisinopril 2.5 mg tablet RxNorm: 057381 1 Tablet(s) PO daily 10/20/19 20 2019 Inactive levothyroxine 50 mcg tablet RxNorm: 415733 1 Tablet(s) PO daily 10/20/192019 Inactive This refill negates all other refills of this medication fenugreek seed extract 500 mg capsule RxNorm: 1 Capsule(s) Oral three times a day 10/17/19 20 2021 Inactive hydrochlorothiazide 25 mg tablet RxNorm: 180898 1 Tablet(s) Oral every day 10/17/19 20 2019 Inactive Alcohol Prep Pads RxNorm: 879936 1 Patch TOP QAM 10/16/19 20 2020 Inactive loperamide 2 mg tablet RxNorm: 212334 1 Tablet(s) Oral as needed take one [...] 2019 Inactive hydrochlorothiazide 25 mg tablet RxNorm: 407816 1 Tablet(s) Oral every day 09/19/20 19 2019 Inactive Sudafed 12 Hour 120 mg tablet,extended release RxNorm: 6631585 1 Tablet(s) Oral every 12 hours as needed 09/11/20 19 2018 Inactive omeprazole 20 mg capsule,delayed release RxNorm: 753386 1 Capsule(s) Oral every day 09/07/20 19 2019 Inactive Sudafed 12 Hour 120 mg tablet,extended release RxNorm: 0920396 1 Tablet(s) Oral every 12 hours as needed 09/04/20 19 2018 Inactive pantoprazole 40 mg tablet,delayed release RxNorm: 982042 1 Tablet(s) Oral every day 08/24/20 19 2018 Inactive discontinue any other H2Blkr. and PPI albuterol sulfate 2.5 mg/3 mL (0.083 %) solution for nebulization RxNorm: 005357 1 Vial Inhalation every four hours as needed as needed for dyspnea 08/17/20 19 2019 Inactive 60/box. This refill negates all other refills of this medication. Please do not fill early. Please do not auto refill. Symbicort 160 mcg-4.5 mcg/actuation HFA aerosol inhaler RxNorm: 5367361 2 Puff(s) INH BID 08/17/20 19 No Stop Date Active Alcohol Prep Pads RxNorm: 889549 1 Patch TOP QAM 08/17/20 19 2019 Inactive Ventolin HFA 90 mcg/actuation aerosol inhaler RxNorm: 406447 2 Puff(s) INH QID 08/09/20 19 2019 Inactive Please do not fill early. Please do not auto refill. This refill negates all other refills of this medication True Metrix Glucose Test Strip RxNorm: 1 Test Strips Miscellaneous QAM 08/09/20 19 2019 Inactive 100/container atorvastatin 40 mg tablet RxNorm: 674446 1 Tablet(s) Oral every day 07/04/20 19 2019 Inactive levmetamfetamine 50 mg nasal inhaler RxNorm: 1 Unit(s) NASAL Q3-4H Do not use more than every 3 hours or 8 times/24hours 06/26/20 19 2021 Inactive Please do not auto refill. This refill negates all other refills of this medication buspirone 7.5 mg tablet RxNorm: 195210 1 Tablet(s) PO BID 06/26/20 19 2020 Inactive This refill negates all other refills of this medication hydrochlorothiazide 12.5 mg tablet RxNorm: 032108 1 Tablet(s) PO QAM 06/26/20 19 2019 Inactive Ventolin HFA 90 mcg/actuation aerosol inhaler RxNorm: 645314 2 Puff(s) INH QID 06/26/20 19 2018 Inactive Please do not fill early. Please do not auto refill. This refill negates all other refills of this medication Singulair 10 mg tablet RxNorm: 994373 1 Tablet(s) PO daily 06/26/20 19 2019 Inactive This refill negates all other refills of this medication cetirizine 10 mg tablet RxNorm: 9568084 1 Tablet(s) PO daily 06/26/20 19 2019 Inactive This refill negates all other refills of this medication. Please do not auto refill levothyroxine 50 mcg tablet RxNorm: 921348 1 Tablet(s) PO daily 06/26/20 19 2019 Inactive This refill negates all other refills of this medication diclofenac sodium 75 mg tablet,delayed release RxNorm: 662937 1 Tablet(s) PO BID 06/26/20 19 2019 Inactive This refill negates all other refills of this medication ranitidine 150 mg tablet RxNorm: 868767 1 Tablet(s) PO BID 06/26/20 19 2018 Inactive This refill negates all other refills of this medication Calcium 600-D3 Plus (mag-zinc) 600 mg calcium-800 unit-50 mg tablet RxNorm: 1 Tablet(s) PO daily take an additonal tablet for itching. 06/26/20 19 2018 Inactive This refill negates all other refills of this medication albuterol sulfate 2.5 mg/3 mL (0.083 %) solution for nebulization RxNorm: 726211 1 Vial INH QID 06/26/20 19 2018 Inactive 60/box. This refill negates all other refills of this medication. Please do not fill early. Please do not auto refill. lisinopril 2.5 mg tablet RxNorm: 967845 1 Tablet(s) PO daily 06/21/20 19 2019 Inactive gabapentin 300 mg capsule RxNorm: 684191 1 Capsule(s) PO TID 06/21/20 19 2019 Inactive atorvastatin 20 mg tablet RxNorm: 347378 1 Tablet(s) PO QHS 06/07/20 19 2018 Inactive This refill negates all other refills of this medication TRUEplus Lancets 30 gauge RxNorm: 1 Lancets Miscellaneous QAM 05/29/20 19 2018 Inactive 100/box gabapentin 300 mg capsule RxNorm: 229265 1 Capsule(s) PO TID 05/03/20 19 2018 Inactive Flintstones Complete (iron) 18 mg iron chewable tablet RxNorm: 1 Tablet(s) PO daily 04/04/20 19 2021 Inactive This refill negates all other refills of this medication gabapentin 300 mg capsule RxNorm: 238685 1 Capsule(s) PO TID as needed 02/01/20 19 2018 Inactive True Metrix Glucose Test Strip RxNorm: 1 Test Strips Miscellaneous QA 02/01/20 19 2018 Inactive 100/container Alcohol Prep Pads RxNorm: 824066 1 Patch TOP QAM 02/01/20 19 2018 Inactive TRUEplus Lancets 30 gauge RxNorm: 1 Lancets Miscellaneous QAM 02/01/20 19 2018 Inactive 100/box lisinopril 2.5 mg tablet RxNorm: 334933 1 Tablet(s) PO daily 12/28/19 19 2018 Inactive ranitidine 150 mg tablet RxNorm: 270094 1 Tablet(s) PO BID 10/21/192018 Inactive This refill negates all other refills of this medication albuterol sulfate 2.5 mg/3 mL (0.083 %) solution for nebulization RxNorm: 778855 1 Vial INH QID 10/21/192018 Inactive 60/box. [...] this medication gabapentin 300 mg capsule RxNorm: 680201 1 Capsule(s) PO TID as needed 10/21/19 19 2018 Inactive atorvastatin 20 mg tablet RxNorm: 964402 1 Tablet(s) PO QHS 10/21/192018 Inactive This refill negates all other refills of this medication trazodone 50 mg tablet RxNorm: 981478 1 Tablet(s) PO QHS 10/21/19 19 2018 Inactive This refill negates all other refills of this medication Ventolin HFA 90 mcg/actuation aerosol inhaler RxNorm: 155455 2 Puff(s) INH QID 10/21/192018 Inactive Please do not fill early. Please do not auto refill. This refill negates all other refills of this medication Calcium 600-D3 Plus 600 mg calcium-800 unit-50 mg tablet RxNorm: 1 Tablet(s) PO daily take an additonal tablet for itching. 10/21/19 19 2018 Inactive This refill negates all other refills of this medication Singulair 10 mg tablet RxNorm: 693338 1 Tablet(s) PO daily 10/21/192018 Inactive This refill negates all other refills of this medication buspirone 7.5 mg tablet RxNorm: 688033 1 Tablet(s) PO BID 10/21/19 19 2018 Inactive This refill negates all other refills of this medication diclofenac sodium 75 mg tablet,delayed release RxNorm: 001358 1 Tablet(s) PO BID 10/21/19 19 2018 Inactive This refill negates all other refills of this medication hydrochlorothiazide 12.5 mg tablet RxNorm: 289087 1 Tablet(s) PO QAM 10/21/19 19 2018 Inactive metoprolol succinate ER 50 mg tablet,extended release 24 hr RxNorm: 665947 1 Tablet(s) PO daily 10/21/19 19 2018 Inactive This refill negates all other refills of this medication levothyroxine 50 mcg tablet RxNorm: 323052 1 Tablet(s) PO daily 10/21/19 19 2018 Inactive This refill negates all other refills of this medication cetirizine 10 mg tablet RxNorm: 0550524 1 Tablet(s) PO daily 10/21/192018 Inactive This refill negates all other refills of this medication. Please do not auto refill Flintstones Complete (iron) 18 mg iron chewable tablet RxNorm: 1 Tablet(s) PO daily 10/21/192018 Inactive This refill negates all other refills of this medication buspirone 7.5 mg tablet RxNorm: 174028 1 Tablet(s) PO BID 10/12/192018 Inactive cetirizine 10 mg tablet RxNorm: 1959234 1 Tablet(s) PO daily 09/28/202018 Inactive Guaiasorb DM 10 mg-100 mg/5 mL oral liquid RxNorm: 272506 10 Milliliter(s) PO As needed every 4 hr 09/24/202018 Inactive Vicks Vaporub 4.7 %-1.2 %-2.6 % topical ointment RxNorm: 1243246 1 Application TOP TID 09/24/20 18 2018 Inactive levmetamfetamine 50 mg nasal inhaler RxNorm: 1 Unit(s) NASAL Q3-4H 09/24/20 18 2017 Inactive sertraline 50 mg tablet RxNorm: 334627 1 Tablet(s) PO daily 09/09/20 18 2018 Inactive Please note dose trazodone 50 mg tablet RxNorm: 163632 1 Tablet(s) PO QHS 09/06/20 18 2018 Inactive sertraline 50 mg tablet RxNorm: 083103 1 Tablet(s) PO daily 09/06/20 18 2017 Inactive amoxicillin 500 mg tablet RxNorm: 488702 1 Tablet(s) PO Q12H 08/31/20 18 2017 Inactive albuterol sulfate 2.5 mg/3 mL (0.083 %) solution for nebulization RxNorm: 077487 1 Vial INH QID 08/10/20 18 2018 Inactive 60/box. Please do not fill early. Please do not auto refill. Prozac 10 mg capsule RxNorm: 015020 1 Capsule(s) PO daily 08/09/20 18 2017 Inactive buspirone 7.5 mg tablet RxNorm: 796186 1 Tablet(s) PO BID 08/09/20 18 2018 Inactive gabapentin 300 mg capsule RxNorm: 790125 1 Capsule(s) PO TID as needed 08/01/20 18 2018 Inactive hydrochlorothiazide 12.5 mg tablet RxNorm: 764012 1 Tablet(s) PO QAM 08/01/20 18 2018 Inactive ranitidine 150 mg tablet RxNorm: 285128 1 Tablet(s) PO BID 08/01/20 18 2018 Inactive Macrobid 100 mg capsule RxNorm: 852415 1 Capsule(s) PO Q12H 06/21/20 18 2017 Inactive Singulair 10 mg tablet RxNorm: 091785 1 Tablet(s) PO daily 06/14/20 18 2018 Inactive Ventolin HFA 90 mcg/actuation aerosol inhaler RxNorm: 6403959 2 Puff(s) INH QID 06/14/20 18 2018 Inactive Singulair 10 mg tablet RxNorm: 592714 1 Tablet(s) PO daily 06/14/20 18 2017 Inactive buspirone 7.5 mg tablet RxNorm: 996591 1 Tablet(s) PO BID 06/14/20 18 2017 Inactive Prozac 10 mg capsule RxNorm: 626725 1 Capsule(s) PO daily 06/14/20 18 2017 Inactive Neilmed Pediatric Sinus Rinse Refill packet RxNorm: 1 Unit Dose NASAL PRN 05/31/20 18 2021 Inactive diclofenac sodium 75 mg tablet,delayed release RxNorm: 637723 1 Tablet(s) PO BID 05/31/20 18 2017 Inactive lisinopril 2.5 mg tablet RxNorm: 466691 1 Tablet(s) PO daily 05/31/20 18 2017 Inactive metoprolol succinate ER 50 mg tablet,extended release 24 hr RxNorm: 820915 1 Tablet(s) PO daily 05/31/20 18 2017 Inactive levothyroxine 50 mcg tablet RxNorm: 972514 1 Tablet(s) PO daily 05/31/20 18 2017 Inactive TRUEplus Lancets 30 gauge RxNorm: 1 Lancets Miscellaneous QAM 05/31/20 18 2017 Inactive 100/box Ventolin HFA 90 mcg/actuation aerosol inhaler RxNorm: 493299 2 Puff(s) INH QID 05/31/20 18 2017 Inactive Aleve 220 mg capsule RxNorm: 1728778 1 Capsule(s) PO BID 05/31/20 18 2018 Inactive ranitidine 150 mg tablet RxNorm: 443138 1 Tablet(s) PO BID 05/31/20 18 2017 Inactive gabapentin 300 mg capsule RxNorm: 049442 1 Capsule(s) PO TID as needed 05/31/20 18 2017 Inactive atorvastatin 20 mg tablet RxNorm: 303980 1 Tablet(s) PO QHS 05/31/20 18 2017 Inactive True Metrix Glucose Test Strip RxNorm: 1 Test Strips Miscellaneous QAM 05/31/20 18 2017 Inactive 50/container Calcium 600-D3 Plus 600 mg calcium-800 unit-50 mg tablet RxNorm: 1 Tablet(s) PO daily take an additonal tablet for itching. 05/31/20 18 2017 Inactive hydrochlorothiazide 12.5 mg tablet RxNorm: 065046 1 Tablet(s) PO QAM 05/31/20 18 2017 Inactive Flintstones Complete (iron) 18 mg iron chewable tablet RxNorm: 1 Tablet(s) PO daily 05/31/20 18 2017 Inactive d-mannose oral powder RxNorm: PO 18 2021 Inactive True Metrix Glucose Meter RxNorm: miscellaneous 08/17/202018 Inactive sertraline 50 mg tablet RxNorm: 213353 1 Tablet(s) PO daily 11/28/19 20 2019 Inactive loperamide 2 mg tablet RxNorm: 984506 oral 09/29/20 19 2018 Inactive Symbicort 160 mcg-4.5 mcg/actuation HFA aerosol inhaler RxNorm: 0672006 2 Puff(s) INH BID 08/17/20 19 2018 Inactive Medication Administered No Medication Administered data Procedures Procedure Codes Date Patient Health Questionnaire CPT-4: DPHQ Electrocardiogram CPT-4: 87164 05/14/2020 Tobacco Assessment/Screening CPT-4: TCA Fall Risk Assessment SNOMED CT: 62322891 4 CPT-4: DFRA 01/01/2020 Functional Assessment CPT-4: DFA 01/01/2020 [place] Fany Assessment CPT-4: DSWA 11/04 Patient Health Questionnaire CPT-4: DPHQ [place] Fany Assessment CPT-4: DSWA 10/03 Hypertension CPT-4: HTN 10/17/2019 Fall Risk Assessment SNOMED CT: 09410763 4 CPT-4: DFRA 09/19/2019 Functional Assessment CPT-4: DFA 09/19/2019 Urinalysis, dip stick CPT-4: 37060 06/21/2019 Tobacco Assessment/Screening CPT-4: TCA Patient Health Questionnaire CPT-4: DPHQ AHA/REBECCA Classification Assessment CPT-4: DAHA 04/25/2019 Controlled Substance Report CPT-4: CTRSU 04/03 Urinalysis, dip stick CPT-4: 97894 03/28/2019 Urinalysis, dip stick CPT-4: 49275 03/28/2019 H3Q-Rpyjiykykkwlrnw CPT-4: 92823 Unknown P8P-Eycqgzejaeutrhm CPT-4: 38877 Unknown A5U-Vlklsihzndtawle CPT-4: 20209 Unknown H4U-Lzcgtipmbsxsizd CPT-4: 55344 Unknown Gynecology Referral SNOMED CT: 706617256 CPT-4: R14 Unknown Reason For Visit Reason For Visit Effective Dates Notes hypertension 08/26/2020 diabetes mellitus 08/26/2020 mole check 08/26/2020 Interim health update 08/26/2020 Encounters Encounter Performer Location Location Address Codes Magdi e ([id number]) (EST PT) EXPANDED PROBLEM FOCUSED TELEHEALTH VISIT Diagnosis: Type 2 diabetes mellitus with peripheral neuropathy[ICD10: E11.42] Anna Culver [facility] [id number] [place] [address] [place] [address] CPT-4: 31971 08/26/2020 Plan of Care Planned Activity Notes Codes Status Date Visit Plan: M25.531-719.43 Right wrist pain routine follow up with Dr Watson-orthopedics last appt 07/14/2020-record requested quit outpatient PT as didn't feel it was helpful MRI with contrast per orthopedics completed 06/30/2020- per patiet revealed torn ligament to right wrist-record requested in process of being referred to hand quality improvement specialist-will send information when available E11.42-250.60 Type 2 diabetes mellitus with peripheral neuropathy testing BID and PRN if feeling symptomatic 89-125, patient reports feeling symptomatic for BS >100, Metformin increased to 1000mg BID -not started yet-won't start until new med pack received (09/11/2020 received new monitor [employer] through [facility]-participant of [employer] on demand -will send all diabetic supplies to patient 04/14/2020 hemoglobin 5.6 10/17/2019 Hemoglobin A1C 6.0 07/04/2019 Hgb A1C 5.6 10/17/2019 [place] Fany 04/11-instructed on good daily foot care [...] and depressed mood routine follow up [facility] 08/19/2020 PHQ 9 Scoere 1, admits to [...] 2019 new appt for pap in June 2020-[facility] [employer]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 08/26/2020 Patient Education: Patient Medication Summary Completed 08/26/2020 Patient Education: Hypertension Completed 08/26/2020 Patient Education: Diabetes Complete d 08/26/2020 Appointment: Anna Culver WPtel: [address] [place] [address] [place] ETV 08/19/2020 Appointment: Anna Culver WPtel: [address] [place] [address] [place] 07/22/2020 Appointment: Anna Culver WPtel: [phone] [place] [address] [place] ETV 07/08/2020 Appointment: Gianna Birmingham: [address] [facility] [address] [id number] [place] ECHO 07/02/2020 Appointment: Anna Culver WPtel: [address] [place] [address] [place] E452 06/11/2020 Appointment: Anna Culver WPtel: [phone] [place] [address] E452 05/14/2020 Appointment: Anna Culver WPtel: [phone] [place] [address] E452 04/17/2020 Appointment: Anna Culver WPtel: [address] [place] [address] E452 03/21/2020 Appointment: Anna Culver WPtel: [address] [place] [address] E452 02/14/2020 Appointment: Anna Culver WPtel: [address] [place] [address] E452 01/24/2020 Appointment: Anna Culver WPtel: [address] [place] [address] E452 01/01/2020 Appointment: Anna Culver WPtel: [address] [place] [address] E452 11/28/2019 Appointment: Anna Culver WPtel: [address] [place] [address] E452 10/17/2019 Appointment: Anna Culver WPtel: [address] [place] [address] E452 09/19/2019 Appointment: Sudha Hernadez WPtel: [address] [facility] [id number] E452 07/04/2019 Appointment: Sudha Hernadez WPtel: [address] [facility] [id number] E452 06/21/2019 Appointment: Charlene Oropeza WPtel: [address] [facility] [id number] E452 05/24/2019 Appointment: Mallory Delgado E452 04/27/2019 Appointment: Charlene Oropeza WPtel: [address] [facility] b [id number] E452 04/25/2019 Appointment: Rasta Palafox WPtel: [address] [facility] b [id number] E452 03/28/2019 Appointment: Rasta Palafox WPtel: [address] [place] [address] b [id number] E452 02/14/2019 Appointment: Rasta Palafox WPtel: [address] [place] [address] b [id number] E452 01/31/2019 Appointment: Rasta Palafox WPtel: [address] [place] [address] [id number] E420 12/27/2018 Referral: Pending Gynecology Referral Information Referral Processed Referral: Pending Pulmonolog y Referral Information Referral Processed Referral: Pending Psychiatry Referral Information Referral Initiated Referral: Pending Respirator y Services Referral Information Referral Initiated Referral: Pending Ophthalmology Referral Information Referral Initiated Referral: [facility] WPtel: [address] [place] [address] Town Manager placed a call out to the patient to notify her that it has been recommended that she be seen by a urologist. Patient agreed to be seen, does not have a provider of choice and no transportation issues. Town Manager faxed referral and clinical notes to [facility] in [place], [place] near the patient's home. [...] seen and prefers a provider in the [place] or [place] area. Town Manager placed a call out to everyone listed in the area and the only location that was able to accept the patient's insurance was [facility] [place] [facility] [address] [place] [address] and spoke with Maylin. Maylin asked that the patient's referral, face sheet and visit notes be faxed to . Town Manager faxed over requested documents. Patient appointment confirmation letter generated and mailed to her home address. Patient to call to schedule an appointment. Processed Referral: [facility] y WPtel: [address] [facility] [address] [place], [place] [id number] Patient notified that it has been advised that she be seen by Neurology. Patient agreed to be seen and prefers to be seen by a provider in the [place], [place] area. Patient denies any concerns with transportation, and prefers to schedule her own appointment. Town Manager placed a call out to [facility] and spoke with Neeraj Mcfarland: who confirmed that their office is able to accept new patients and the patient's insurance. After confirming the providers fax number, keno writer/runner faxed over the patient's referral, and most [...] Assessment and plan reviewed with patient . [id number] Right wrist pain routine follow up with Dr Watson-orthopedics last appt 07/14/2020-record requested quit outpatient PT as didn't feel it was helpful MRI with contrast per orthopedics completed 06/30/2020- per patiet revealed torn ligament to right wrist-record requested in process of being referred to hand quality improvement specialist-will send information when available [id number] Type [...] and depressed mood routine follow up [facility] [place] 08/19/2020 PHQ 9 Scoere 1, admits to [...] new appt for pap in June 2020-[facility] [employer] Super[facility]-reports pap negative-records requested [id number] Encounter for [...]
--- OUTSIDE RECORDS SUMMARY | 2023-12-07 02:14 | XMS_ITS | CCD ---
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 Name Role Phone Anna Culver NP Primary Care Provider Unav ailable Unavailable Chronic Care Management Unavaila ble Summary Purpose DataExchange Insurance Providers Payer name Policy type / Coverage type Covered alliance party ID Effective Begin Date Effective End Date SUKI MAYO [id number] Unknown Unknown Family history Mother Diagnosis Age [...] Unknown Disability 05/31/[address]: 239590601 Has never s moked or chewed tobacco 05/31/[address]: 154694759 Never drinks alco hol 05/31/2018 Has the [...] use ICD-10: Z01.89 ICD-9: V72.85 01/01/2020 Active [facility] ICD-10: H10.029 ICD-9: 372.03 12/29/2019 Active [...] ICD-10: UXZ.01 ICD-9: XZ0.1 04/27/2019 Active 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 ICD-10: Z79.899 [...] Instructions omeprazole 20 mg capsule,delayed release RxNorm: 329194 1 Capsule(s) Oral two times a day 10/13/19 21 2021 Inactive omeprazole 20 mg capsule,delayed release RxNorm: 342419 TAKE 1 CAPSULE BY MOUTH EVERY DAY 10/08/192021 Inactive Macrobid 100 mg capsule RxNorm: 315158 1 Capsule(s) Oral every 12 hours with food 10/01/20 20 2020 Inactive omeprazole 20 mg capsule,delayed release RxNorm: 588699 1 Capsule(s) Oral two times a day 09/24/20 20 2021 Inactive metformin 1,000 mg tablet RxNorm: 100754 1 Tablet(s) Oral two times a day 08/19/20 20 2020 Inactive start on September 11, 2020 metformin 500 mg tablet RxNorm: 582214 1 Tablet(s) Oral two times a day take with 500mg to equal 1000mg 08/19/20 20 2019 Inactive gabapentin 300 mg capsule RxNorm: 205067 TAKE 1 CAPSULE BY MOUTH THREE TIMES DAILY 07/11/20 20 2020 Inactive cetirizine 10 mg tablet RxNorm: 6648758 TAKE (1) TABLET BY MOUTH DAILY 07/11/20 20 2020 Inactive metformin 500 mg tablet RxNorm: 752553 1 Tablet(s) Oral two times a day 07/08/20 20 2019 Inactive loperamide 2 mg tablet RxNorm: 365034 1 Tablet(s) Oral as needed take one tablet after each loose stool, maximum of 8 tablets in 24 hours 06/24/20 20 2021 Inactive Sudafed 12 Hour 120 mg tablet,extended release RxNorm: 3729181 TAKE 1 TABLET BY MOUTH EVERY 12 HOURS NEEDED 06/11/20 20 2019 Inactive hydrochlorothiazide 25 mg tablet RxNorm: 911397 TAKE (1) TABLET BY MOUTH EVERY DAY 06/11/20 20 2019 Inactive omeprazole 20 mg capsule,delayed release RxNorm: 653013 TAKE 1 CAPSULE BY MOUTH EVERY DAY 05/14/20 20 2020 Inactive metformin 500 mg tablet RxNorm: 019020 1 Tablet(s) Oral every day 05/12/20 20 2019 Inactive True Metrix Glucose Test Strip RxNorm: 1 Test Strips Miscellaneous two times a day as needed 04/17/20 No Stop Date Active metformin 500 mg tablet RxNorm: 543202 1 Tablet(s) Oral every day 04/17/20 20 2019 Inactive diclofenac sodium 75 mg tablet,delayed release RxNorm: 129406 1 Tablet(s) PO BID 04/14/20 20 2021 Inactive This refill negates all other refills of this medication Sudafed 12 Hour 120 mg tablet,extended release RxNorm: 9720518 TAKE 1 TABLET BY MOUTH EVERY 12 HOURS NEEDED 03/14/20 20 2019 Inactive True Metrix Glucose Test Strip RxNorm: 1 Test Strips Miscellaneous every morning 03/13/20 20 2019 Inactive 100/container True Metrix Glucose Test Strip RxNorm: 1 Test Strips Miscellaneous QAM 02/22/20 20 2019 Inactive 100/container loperamide 2 mg tablet RxNorm: 230805 1 Tablet(s) Oral as needed take one tablet after each loose stool, maximum of 8 tablets in 24 hours 02/22/20 20 2019 Inactive levothyroxine 50 mcg tablet RxNorm: 091433 1 Tablet(s) PO daily 01/17/20 20 2020 Inactive cetirizine 10 mg tablet RxNorm: 4222715 1 Tablet(s) PO daily 01/17/20 20 2019 Inactive loperamide 2 mg tablet RxNorm: 897539 1 Tablet(s) Oral as needed take one tablet after each loose stool, maximum of 8 tablets in 24 hours 01/17/20 20 2019 Inactive quetiapine 100 mg tablet RxNorm: 454108 1 Tablet(s) Oral every night at bedtime 01/17/20 20 2019 Inactive gabapentin 300 mg capsule RxNorm: 475432 1 Capsule(s) PO TID 01/17/202019 Inactive lisinopril 2.5 mg tablet RxNorm: 124121 1 Tablet(s) PO daily 01/15/20 20 2020 Inactive Singulair 10 mg tablet RxNorm: 184751 1 Tablet(s) PO daily 01/15/202020 Inactive levothyroxine 50 mcg tablet RxNorm: 617631 1 Tablet(s) PO daily 01/15/20 20 2019 Inactive gabapentin 300 mg capsule RxNorm: 803952 1 Capsule(s) PO TID 01/15/20 20 2019 Inactive cetirizine 10 mg tablet RxNorm: 7787707 1 Tablet(s) PO daily 01/15/20 20 2019 Inactive gentamicin 0.3 % eye drops RxNorm: 959477 1 Drop(s) ophthalmic (eye) four times a day 12/29/19 20 2019 Inactive gentamicin 0.3 % eye drops RxNorm: 781371 1 Drop(s) ophthalmic (eye) four times a day 12/29/19 20 2019 Inactive gentamicin 0.3 % eye drops RxNorm: 646969 1 Drop(s) ophthalmic (eye) four times a day 12/29/19 20 2019 Inactive hydrochlorothiazide 25 mg tablet RxNorm: 982628 1 Tablet(s) Oral every day 12/21/19 20 2019 Inactive Sudafed 12 Hour 120 mg tablet,extended release RxNorm: 3244475 TAKE (1) TABLET BY MOUTH EVERY 12 HOURS NEEDED 12/21/19 20 2019 Inactive loperamide 2 mg tablet RxNorm: 208676 1 Tablet(s) Oral as needed take one tablet after each loose stool, maximum of 8 tablets in 24 hours 12/11/19 20 2019 Inactive loperamide 2 mg tablet RxNorm: 485856 1 Tablet(s) Oral as needed take one tablet after each loose stool, maximum of 8 tablets in 24 hours 12/11/19 20 2019 Inactive atorvastatin 40 mg tablet RxNorm: 583012 1 Tablet(s) Oral every day 11/29/19 20 2020 Inactive quetiapine 100 mg tablet RxNorm: 164858 1 Tablet(s) Oral every night at bedtime 11/28/19 20 2019 Inactive sertraline 100 mg tablet RxNorm: 364483 1 Tablet(s) Oral 11/28/19 20 2019 Inactive omeprazole 20 mg capsule,delayed release RxNorm: 555268 1 Capsule(s) Oral every day 11/20/19 20 2019 Inactive amoxicillin 250 mg capsule RxNorm: 205018 1 Capsule(s) Oral three times a day 11/07/19 20 2019 Inactive multivitamin with iron-mineral tablet RxNorm: 1 Tablet(s) Oral every day 10/29/19 20 2021 Inactive cetirizine 10 mg tablet RxNorm: 2895461 1 Tablet(s) PO daily 10/20/19 20 2019 Inactive This refill negates all other refills of this medication. Please do not auto refill Singulair 10 mg tablet RxNorm: 647100 1 Tablet(s) PO daily 10/20/19 20 2019 Inactive This refill negates all other refills of this medication gabapentin 300 mg capsule RxNorm: 023056 1 Capsule(s) PO TID 10/20/19 20 2019 Inactive lisinopril 2.5 mg tablet RxNorm: 978732 1 Tablet(s) PO daily 10/20/19 20 2019 Inactive levothyroxine 50 mcg tablet RxNorm: 047406 1 Tablet(s) PO daily 10/20/19 20 2019 Inactive This refill negates all other refills of this medication fenugreek seed extract 500 mg capsule RxNorm: 1 Capsule(s) Oral three times a day 10/17/19 20 2021 Inactive hydrochlorothiazide 25 mg tablet RxNorm: 379897 1 Tablet(s) Oral every day 10/17/19 20 2019 Inactive Alcohol Prep Pads RxNorm: 038498 1 Patch TOP QAM 10/16/19 20 2020 Inactive loperamide 2 mg tablet RxNorm: 850860 1 Tablet(s) Oral as needed take one [...] 2019 Inactive hydrochlorothiazide 25 mg tablet RxNorm: 290784 1 Tablet(s) Oral every day 09/19/20 19 2019 Inactive Sudafed 12 Hour 120 mg tablet,extended release RxNorm: 6350259 1 Tablet(s) Oral every 12 hours as needed 09/11/20 19 2018 Inactive omeprazole 20 mg capsule,delayed release RxNorm: 173400 1 Capsule(s) Oral every day 09/07/20 19 2019 Inactive Sudafed 12 Hour 120 mg tablet,extended release RxNorm: 4485111 1 Tablet(s) Oral every 12 hours as needed 09/04/20 19 2018 Inactive pantoprazole 40 mg tablet,delayed release RxNorm: 260039 1 Tablet(s) Oral every day 08/24/20 19 2018 Inactive discontinue any other H2Blkr. and PPI albuterol sulfate 2.5 mg/3 mL (0.083 %) solution for nebulization RxNorm: 361437 1 Vial Inhalation every four hours as needed as needed for dyspnea 08/17/20 19 2019 Inactive 60/box. This refill negates all other refills of this medication. Please do not fill early. Please do not auto refill. Symbicort 160 mcg-4.5 mcg/actuation HFA aerosol inhaler RxNorm: 2801235 2 Puff(s) INH BID 08/17/20 No Stop Date Active Alcohol Prep Pads RxNorm: 006314 1 Patch TOP QAM 08/17/20 19 2019 Inactive Ventolin HFA 90 mcg/actuation aerosol inhaler RxNorm: 474385 2 Puff(s) INH QID 08/09/20 19 2019 Inactive Please do not fill early. Please do not auto refill. This refill negates all other refills of this medication True Metrix Glucose Test Strip RxNorm: 1 Test Strips Miscellaneous QAM 08/09/20 19 2019 Inactive 100/container atorvastatin 40 mg tablet RxNorm: 920262 1 Tablet(s) Oral every day 07/04/20 19 2019 Inactive levmetamfetamine 50 mg nasal inhaler RxNorm: 1 Unit(s) NASAL Q3-4H Do not use more than every 3 hours or 8 times/24hours 06/26/20 19 2021 Inactive Please do not auto refill. This refill negates all other refills of this medication buspirone 7.5 mg tablet RxNorm: 293427 1 Tablet(s) PO BID 06/26/20 19 2020 Inactive This refill negates all other refills of this medication hydrochlorothiazide 12.5 mg tablet RxNorm: 505768 1 Tablet(s) PO QAM 06/26/20 19 2019 Inactive Ventolin HFA 90 mcg/actuation aerosol inhaler RxNorm: 022816 2 Puff(s) INH QID 06/26/20 19 2018 Inactive Please do not fill early. Please do not auto refill. This refill negates all other refills of this medication Singulair 10 mg tablet RxNorm: 954774 1 Tablet(s) PO daily 06/26/20 19 2019 Inactive This refill negates all other refills of this medication cetirizine 10 mg tablet RxNorm: 2611034 1 Tablet(s) PO daily 06/26/20 19 2019 Inactive This refill negates all other refills of this medication. Please do not auto refill levothyroxine 50 mcg tablet RxNorm: 264185 1 Tablet(s) PO daily 06/26/20 19 2019 Inactive This refill negates all other refills of this medication diclofenac sodium 75 mg tablet,delayed release RxNorm: 489050 1 Tablet(s) PO BID 06/26/20 19 2019 Inactive This refill negates all other refills of this medication ranitidine 150 mg tablet RxNorm: 298920 1 Tablet(s) PO BID 06/26/20 19 2018 Inactive This refill negates all other refills of this medication Calcium 600-D3 Plus (mag-zinc) 600 mg calcium-800 unit-50 mg tablet RxNorm: 1 Tablet(s) PO daily take an additonal tablet for itching. 06/26/20 19 2018 Inactive This refill negates all other refills of this medication albuterol sulfate 2.5 mg/3 mL (0.083 %) solution for nebulization RxNorm: 059770 1 Vial INH QID 06/26/20 19 2018 Inactive 60/box. This refill negates all other refills of this medication. Please do not fill early. Please do not auto refill. lisinopril 2.5 mg tablet RxNorm: 371237 1 Tablet(s) PO daily 06/21/20 19 2019 Inactive gabapentin 300 mg capsule RxNorm: 530212 1 Capsule(s) PO TID 06/21/20 19 2019 Inactive atorvastatin 20 mg tablet RxNorm: 616876 1 Tablet(s) PO QHS 06/07/20 19 2018 Inactive This refill negates all other refills of this medication TRUEplus Lancets 30 gauge RxNorm: 1 Lancets Miscellaneous QAM 05/29/20 19 2018 Inactive 100/box gabapentin 300 mg capsule RxNorm: 075588 1 Capsule(s) PO TID 05/03/20 19 2018 Inactive César Beckett (iron) 18 mg iron chewable tablet RxNorm: 1 Tablet(s) PO daily 04/04/202021 Inactive This refill negates all other refills of this medication gabapentin 300 mg capsule RxNorm: 931285 1 Capsule(s) PO TID as needed 02/01/20 19 2018 Inactive True Metrix Glucose Test Strip RxNorm: 1 Test Strips Miscellaneous QAM 02/01/20 19 2018 Inactive 100/container Alcohol Prep Pads RxNorm: 957110 1 Patch TOP QAM 02/01/20 19 2018 Inactive TRUEplus Lancets 30 gauge RxNorm: 1 Lancets Miscellaneous QAM 02/01/20 19 2018 Inactive 100/box lisinopril 2.5 mg tablet RxNorm: 059042 1 Tablet(s) PO daily 12/28/192018 Inactive ranitidine 150 mg tablet RxNorm: 576339 1 Tablet(s) PO BID 10/21/192018 Inactive This refill negates all other refills of this medication albuterol sulfate 2.5 mg/3 mL (0.083 %) solution for nebulization RxNorm: 761227 1 Vial INH QID 10/21/192018 Inactive 60/box. [...] this medication gabapentin 300 mg capsule RxNorm: 099083 1 Capsule(s) PO TID as needed 10/21/192018 Inactive atorvastatin 20 mg tablet RxNorm: 086871 1 Tablet(s) PO QHS 10/21/192018 Inactive This refill negates all other refills of this medication trazodone 50 mg tablet RxNorm: 732198 1 Tablet(s) PO QHS 10/21/19 19 2018 Inactive This refill negates all other refills of this medication Ventolin HFA 90 mcg/actuation aerosol inhaler RxNorm: 805300 2 Puff(s) INH QID 10/21/19 19 2018 [...] this medication Singulair 10 mg tablet RxNorm: 005497 1 Tablet(s) PO daily 10/21/19 19 2018 Inactive This refill negates all other refills of this medication buspirone 7.5 mg tablet RxNorm: 297553 1 Tablet(s) PO BID 10/21/192018 Inactive This refill negates all other refills of this medication diclofenac sodium 75 mg tablet,delayed release RxNorm: 977968 1 Tablet(s) PO BID 10/21/19 19 2018 Inactive This refill negates all other refills of this medication hydrochlorothiazide 12.5 mg tablet RxNorm: 763095 1 Tablet(s) PO QAM 10/21/19 19 2018 Inactive metoprolol succinate ER 50 mg tablet,extended release 24 hr RxNorm: 904013 1 Tablet(s) PO daily 10/21/192018 Inactive This refill negates all other refills of this medication levothyroxine 50 mcg tablet RxNorm: 889209 1 Tablet(s) PO daily 10/21/192018 Inactive This refill negates all other refills of this medication cetirizine 10 mg tablet RxNorm: 8187490 1 Tablet(s) PO daily 10/21/192018 Inactive This refill negates all other refills of this medication. Please do not auto refill Flintstones Complete (iron) 18 mg iron chewable tablet RxNorm: 1 Tablet(s) PO daily 10/21/19 19 2018 Inactive This refill negates all other refills of this medication buspirone 7.5 mg tablet RxNorm: 771712 1 Tablet(s) PO BID 10/12/19 19 2018 Inactive cetirizine 10 mg tablet RxNorm: 7100566 1 Tablet(s) PO daily 09/28/20 18 2018 Inactive Guaiasorb DM 10 mg-100 mg/5 mL oral liquid RxNorm: 456795 10 Milliliter(s) PO As needed every 4 hr 09/24/20 18 2018 Inactive Vicks Vaporub 4.7 %-1.2 %-2.6 % topical ointment RxNorm: 9768349 1 Application TOP TID 09/24/20 18 2018 Inactive levmetamfetamine 50 mg nasal inhaler RxNorm: 1 Unit(s) NASAL Q3-4H 09/24/20 18 2017 Inactive sertraline 50 mg tablet RxNorm: 470076 1 Tablet(s) PO daily 09/09/20 18 2018 Inactive Please note dose trazodone 50 mg tablet RxNorm: 268103 1 Tablet(s) PO QHS 09/06/20 18 2018 Inactive sertraline 50 mg tablet RxNorm: 281003 1 Tablet(s) PO daily 09/06/20 18 2017 Inactive amoxicillin 500 mg tablet RxNorm: 161632 1 Tablet(s) PO Q12H 08/31/20 18 2017 Inactive albuterol sulfate 2.5 mg/3 mL (0.083 %) solution for nebulization RxNorm: 083416 1 Vial INH QID 08/10/20 18 2018 Inactive 60/box. Please do not fill early. Please do not auto refill. Prozac 10 mg capsule RxNorm: 082480 1 Capsule(s) PO daily 08/09/20 18 2017 Inactive buspirone 7.5 mg tablet RxNorm: 337562 1 Tablet(s) PO BID 08/09/20 18 2018 Inactive gabapentin 300 mg capsule RxNorm: 089355 1 Capsule(s) PO TID as needed 08/01/20 18 2018 Inactive hydrochlorothiazide 12.5 mg tablet RxNorm: 977866 1 Tablet(s) PO QAM 08/01/20 18 2018 Inactive ranitidine 150 mg tablet RxNorm: 447830 1 Tablet(s) PO BID 08/01/20 18 2018 Inactive Macrobid 100 mg capsule RxNorm: 280043 1 Capsule(s) PO Q12H 06/21/20 18 2017 Inactive Singulair 10 mg tablet RxNorm: 418662 1 Tablet(s) PO daily 06/14/20 18 2018 Inactive Ventolin HFA 90 mcg/actuation aerosol inhaler RxNorm: 9094656 2 Puff(s) INH QID 06/14/20 18 2018 Inactive Singulair 10 mg tablet RxNorm: 835869 1 Tablet(s) PO daily 06/14/20 18 2017 Inactive buspirone 7.5 mg tablet RxNorm: 501928 1 Tablet(s) PO BID 06/14/20 18 2017 Inactive Prozac 10 mg capsule RxNorm: 919648 1 Capsule(s) PO daily 06/14/20 18 2017 Inactive Neilmed Pediatric Sinus Rinse Refill packet RxNorm: 1 Unit Dose NASAL PRN 05/31/20 18 2021 Inactive diclofenac sodium 75 mg tablet,delayed release RxNorm: 937421 1 Tablet(s) PO BID 05/31/20 18 2017 Inactive lisinopril 2.5 mg tablet RxNorm: 227170 1 Tablet(s) PO daily 05/31/20 18 2017 Inactive metoprolol succinate ER 50 mg tablet,extended release 24 hr RxNorm: 881166 1 Tablet(s) PO daily 05/31/20 18 2017 Inactive levothyroxine 50 mcg tablet RxNorm: 416848 1 Tablet(s) PO daily 05/31/20 18 2017 Inactive TRUEplus Lancets 30 gauge RxNorm: 1 Lancets Miscellaneous QAM 05/31/20 18 2017 Inactive 100/box Ventolin HFA 90 mcg/actuation aerosol inhaler RxNorm: 899719 2 Puff(s) INH QID 05/31/20 18 2017 Inactive Aleve 220 mg capsule RxNorm: 8379574 1 Capsule(s) PO BID 05/31/20 18 2018 Inactive ranitidine 150 mg tablet RxNorm: 968994 1 Tablet(s) PO BID 05/31/20 18 2017 Inactive gabapentin 300 mg capsule RxNorm: 251851 1 Capsule(s) PO TID as needed 05/31/20 18 2017 Inactive atorvastatin 20 mg tablet RxNorm: 368481 1 Tablet(s) PO QHS 05/31/20 18 2017 Inactive True Metrix Glucose Test Strip RxNorm: 1 Test Strips [facility] QAM 05/31/20 18 2017 Inactive 50/container Calcium 600-D3 Plus 600 mg calcium-800 unit-50 mg tablet RxNorm: 1 Tablet(s) PO daily take an additonal tablet for itching. 05/31/20 18 2017 Inactive hydrochlorothiazide 12.5 mg tablet RxNorm: 696827 1 Tablet(s) PO QAM 05/31/20 18 2017 Inactive Flintstones Complete (iron) 18 mg iron chewable tablet RxNorm: 1 Tablet(s) PO daily 05/31/20 18 2017 Inactive d-mannose oral powder RxNorm: PO 18 2021 Inactive True Metrix Glucose Meter RxNorm: miscellaneous 08/17/20 19 2018 Inactive sertraline 50 mg tablet RxNorm: 722164 1 Tablet(s) PO daily 11/28/19 20 2019 Inactive loperamide 2 mg tablet RxNorm: 553075 oral 09/29/20 19 2018 Inactive Symbicort 160 mcg-4.5 mcg/actuation HFA aerosol inhaler RxNorm: 2473877 2 Puff(s) INH BID 08/17/20 19 2018 Inactive Medication Administered No Medication Administered data Procedures Procedure Codes Date Urinalysis, dip stick CPT-4: 42408 09/24/2020 Patient Health Questionnaire CPT-4: DPHQ Electrocardiogram CPT-4: 71542 05/14/2020 Tobacco Assessment/Screening CPT-4: TCA Fall Risk Assessment SNOMED CT: 97574255 4 CPT-4: DFRA 01/01/2020 Functional Assessment CPT-4: DFA 01/01/2020 Lucas Fany Assessment CPT-4: DSWA 11/04 Patient Health Questionnaire CPT-4: DPHQ Lucas Fany Assessment CPT-4: DSWA 10/03 Hypertension CPT-4: HTN 10/17/2019 Fall Risk Assessment SNOMED CT: 74660430 4 CPT-4: DFRA 09/19/2019 Functional Assessment CPT-4: DFA 09/19/2019 Urinalysis, dip stick CPT-4: 38204 06/21/2019 Tobacco Assessment/Screening CPT-4: TCA Patient Health Questionnaire CPT-4: DPHQ AHA/REBECCA Classification Assessment CPT-4: DAHA 04/25/2019 Controlled Substance Report CPT-4: CTRSU 04/03 Urinalysis, dip stick CPT-4: 38423 03/28/2019 Urinalysis, dip stick CPT-4: 98117 03/28/2019 J5B-Zrdggabnobczwmf CPT-4: 44075 Unknown I3A-Kzupbmzolapedeo CPT-4: 88997 Unknown T0C-Lirguaqiiixiqgx CPT-4: 80122 Unknown C4W-Nfjrzimcvygatzf CPT-4: 87252 Unknown V2Y-Inhtaetqtqakeie CPT-4: 43109 Unknown Gynecology Referral SNOMED CT: 463640471 CPT-4: R14 Unknown Reason For Visit No Reason For Visit data Plan of Care Planned Activity Notes Codes Status Date Patient Education: Patient Medication Summary Completed 10/13/2020 Appointment: Anna Culver WPtel: [address] [place] [address] [place] E410 09/24/2020 Appointment: Anna Culver WPtel: [address] [place] [address] [place] ETV 08/26/2020 Appointment: Anna Culver WPtel: [address] [place] [address] [place] ETV 08/19/2020 Appointment: Anna Culver WPtel: [id number] [place] [address] ETV 07/22/2020 Appointment: Anna Culver WPtel: [address] [place] [address] ETV 07/08/2020 Appointment: Gianna Birmingham: [address] [facility] [address] [place] [place] ECHO 07/02/2020 Appointment: Anna Culver WPtel: [address] [place] [address] E452 06/11/2020 Appointment: Anna Culver WPtel: [address] [place] [address] E452 05/14/2020 Appointment: Anna Culver WPtel: [address] [place] [address] E452 04/17/2020 Appointment: Anna Culver WPtel: [address] [place] [address] E452 03/21/2020 Appointment: Anna Culver WPtel: [address] [place] [address] E452 02/14/2020 Appointment: Anna Culver WPtel: [address] [place] [address] [place] E452 01/24/2020 Appointment: Anna Culver WPtel: [address] [place] [address] [place] E452 01/01/2020 Appointment: Anna Culver WPtel: [address] [place] [address] [place] E452 11/28/2019 Appointment: Anna Culver WPtel: [address] [place] [address] [place] E452 10/17/2019 Appointment: Anna Culver WPtel: [id number] [place] [address] [place], [place] [id number] E452 09/19/2019 Appointment: Sudha Hernadez WPtel: [address] [facility] [id number] E452 07/04/2019 Appointment: Sudha Hernadez WPtel: [address] [facility] b [id number] E452 06/21/2019 Appointment: Charlene Oropeza WPtel: [address] [facility] [id number] E452 05/24/2019 Appointment: Mallory Delgado E452 04/27/2019 Appointment: Charlene Oropeza WPtel: [address] [facility] [id number] E452 04/25/2019 Appointment: Rasta Palafox WPtel: [address] [facility] b [id number] E452 03/28/2019 Appointment: Rasta Palafox WPtel: [address] [facility] [id number] E452 02/14/2019 Appointment: Rasta Palafox WPtel: [address] [facility] [id number] E452 01/31/2019 Appointment: Rsata Palafox WPtel: [address] [place] [address] [id number] E420 12/27/2018 Referral: Pending Gynecology Referral Information Referral Processed Referral: Pending Pulmonolog y Referral Information Referral Processed Referral: Pending Psychiatry Referral Information Referral Initiated Referral: Pending Respirator y Services Referral Information Referral Initiated Referral: Pending Ophthalmology Referral Information Referral Initiated Referral: [facility] [place] [facility] WPtel: [address] [place] [employer] Rep[employer]man placed a call out to the patient to notify her that it has been recommended that she be seen by a urologist. Patient agreed to be seen, does not have a provider of choice and no transportation issues. [employer] Shoe Repairman faxed referral and clinical notes to [facility] in [place], [place] near the patient's home. Patient to [...] seen and prefers a provider in the [place] or [place] area. [employer] Sh[employer] Rep[employer]man placed a call out to everyone listed in the area and the only location that was able to accept the patient's insurance was [address] [address] and spoke with Maylin. Maylin asked that the patient's referral, face sheet and visit notes be faxed to . [employer] Rep[employer]man faxed over requested documents. Patient appointment confirmation letter generated and mailed to her home address. Patient to call to schedule an appointment. Processed Referral: [facility]rolog y WPtel: [address] [place], [place] [id number] Patient notified that it has been advised that she be seen by Neurology. Patient agreed to be seen and prefers to be seen by a provider in the [place], [place] area. Patient denies any concerns with transportation, and prefers to schedule her own appointment. [employer] Rep[employer]man placed a call out to [facility] and spoke with Neeraj P: who confirmed that their office is able to accept new patients and the patient's insurance. After confirming the providers fax number, com writer faxed over the patient's referral, and [...]
--- OUTSIDE RECORDS SUMMARY | 2023-12-07 02:14 | XMS_ITS | CCD ---
Author Name Leena Culver NP Address [address] [place] [address] [address] [place] [address] Phone Organization [facility] Phone Care Team Providers Care Digital Artist Name Role Phone Anna Culver NP Primary Care Provider Unav ailable Unavailable Chronic Care Management Unavaila ble Summary Purpose DataExchange Insurance Providers Payer name Policy type / Coverage type Covered constitution party ID Effective Begin Date Effective End Date SUKI MAYO [id number] Unknown Unknown Family history Mother Diagnosis Age [...] Unknown Disability 05/31/[address]: 428621246 Has never s moked or chewed tobacco 05/31/[address]: 125412747 Never drinks alco hol 05/31/2018 Has the [...] hypertension ICD-10: I10 ICD-9: 401.9 10/03/2018 Active History of surgery on right wrist ICD-10 : Z98.890 ICD-9: V45.89 10/29/2020 Active Type 2 diabetes mellitus wit h peripheral neuropathy ICD-10: E11.42 ICD-9: 250.60 11/28/2019 Active Adjustment disorder with mix ed anxiety and depressed mood ICD-10: F43.23 ICD-9: 309.28 09/05/2018 Active Chronic kidney disease, stag e 2 (mild) ICD-10: N18.2 ICD-9: 585.2 10/29/2020 Active GERD (gastroesophageal reflu x disease) ICD-10: K21.9 ICD-9: 530.81 09/07/2019 Active Right wrist pain ICD-10: M25.531 ICD-9: [...] use ICD-10: Z01.89 ICD-9: V72.85 01/01/2020 Active [place] [facility] ICD-10: H10.029 ICD-9: 372.03 12/29/2019 Active [...] ICD-10: UXZ.01 ICD-9: XZ0.1 04/27/2019 Active Other residential (current) dr sharma therapy ICD-10: Z79.899 ICD-9: [...] Headache ICD-10: R51 ICD-9: 784.0 10/03/2018 Active 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) use of non-steroidal anti-inflammatories (NSAID) ICD-10: Z79.1 ICD-9: V58.64 06/13/2018 Active Medications Medication Codes Instructions Start Date Stop Date Status Fill Instructions omeprazole 20 mg capsule,delayed release RxNorm: 819256 1 Capsule(s) Oral every evening 11/24/19 21 2020 Inactive famotidine 10 mg tablet RxNorm: 683524 1 Tablet(s) Oral every morning 11/24/19 21 2020 Inactive Alcohol Prep Pads RxNorm: 817787 USE EACH MORNING 10/14/19 21 2020 Inactive omeprazole 20 mg capsule,delayed release RxNorm: 911437 1 Capsule(s) Oral two times a day 10/13/192021 Inactive omeprazole 20 mg capsule,delayed release RxNorm: 574218 TAKE 1 CAPSULE BY MOUTH EVERY DAY 10/08/192021 Inactive Macrobid 100 mg capsule RxNorm: 895905 1 Capsule(s) Oral every 12 hours with food 10/01/202020 Inactive omeprazole 20 mg capsule,delayed release RxNorm: 100904 1 Capsule(s) Oral two times a day 09/24/20 20 2021 Inactive metformin 1,000 mg tablet RxNorm: 398379 1 Tablet(s) Oral two times a day 08/19/202020 Inactive start on September 11, 2020 metformin 500 mg tablet RxNorm: 460067 1 Tablet(s) Oral two times a day take with 500mg to equal 1000mg 08/19/20 20 2019 Inactive gabapentin 300 mg capsule RxNorm: 019373 TAKE 1 CAPSULE BY MOUTH THREE TIMES DAILY 07/11/20 20 2020 Inactive cetirizine 10 mg tablet RxNorm: 4601930 TAKE (1) TABLET BY MOUTH DAILY 07/11/20 20 2020 Inactive metformin 500 mg tablet RxNorm: 952697 1 Tablet(s) Oral two times a day 07/08/20 20 2019 Inactive loperamide 2 mg tablet RxNorm: 447666 1 Tablet(s) Oral as needed take one tablet after each loose stool, maximum of 8 tablets in 24 hours 06/24/20 20 2021 Inactive Sudafed 12 Hour 120 mg tablet,extended release RxNorm: 3084511 TAKE 1 TABLET BY MOUTH EVERY 12 HOURS NEEDED 06/11/20 20 2019 Inactive hydrochlorothiazide 25 mg tablet RxNorm: 619220 TAKE (1) TABLET BY MOUTH EVERY DAY 06/11/20 20 2019 Inactive omeprazole 20 mg capsule,delayed release RxNorm: 423083 TAKE 1 CAPSULE BY MOUTH EVERY DAY 05/14/20 20 2020 Inactive metformin 500 mg tablet RxNorm: 084704 1 Tablet(s) Oral every day 05/12/20 20 2019 Inactive True Metrix Glucose Test Strip RxNorm: 1 Test Strips Miscellaneous two times a day as needed 04/17/20 No Stop Date Active metformin 500 mg tablet RxNorm: 598162 1 Tablet(s) Oral every day 04/17/20 20 2019 Inactive diclofenac sodium 75 mg tablet,delayed release RxNorm: 831875 1 Tablet(s) PO BID 04/14/20 20 2021 Inactive This refill negates all other refills of this medication Sudafed 12 Hour 120 mg tablet,extended release RxNorm: 2364890 TAKE 1 TABLET BY MOUTH EVERY 12 HOURS NEEDED 03/14/20 20 2019 Inactive True Metrix Glucose Test Strip RxNorm: 1 Test Strips Miscellaneous every morning 03/13/20 20 2019 Inactive 100/container True Metrix Glucose Test Strip RxNorm: 1 Test Strips Miscellaneous QAM 02/22/20 20 2019 Inactive 100/container loperamide 2 mg tablet RxNorm: 746351 1 Tablet(s) Oral as needed take one tablet after each loose stool, maximum of 8 tablets in 24 hours 02/22/20 20 2019 Inactive levothyroxine 50 mcg tablet RxNorm: 135292 1 Tablet(s) PO daily 01/17/20 20 2020 Inactive cetirizine 10 mg tablet RxNorm: 7829516 1 Tablet(s) PO daily 01/17/20 20 2019 Inactive loperamide 2 mg tablet RxNorm: 467407 1 Tablet(s) Oral as needed take one tablet after each loose stool, maximum of 8 tablets in 24 hours 01/17/20 20 2019 Inactive quetiapine 100 mg tablet RxNorm: 835675 1 Tablet(s) Oral every night at bedtime 01/17/20 20 2019 Inactive gabapentin 300 mg capsule RxNorm: 187031 1 Capsule(s) PO TID 01/17/20 20 2019 Inactive lisinopril 2.5 mg tablet RxNorm: 685407 1 Tablet(s) PO daily 01/15/20 20 2020 Inactive Singulair 10 mg tablet RxNorm: 989530 1 Tablet(s) PO daily 01/15/20 20 2020 Inactive levothyroxine 50 mcg tablet RxNorm: 545643 1 Tablet(s) PO daily 01/15/20 20 2019 Inactive gabapentin 300 mg capsule RxNorm: 409648 1 Capsule(s) PO TID 01/15/20 20 2019 Inactive cetirizine 10 mg tablet RxNorm: 8491761 1 Tablet(s) PO daily 01/15/20 20 2019 Inactive gentamicin 0.3 % eye drops RxNorm: 099671 1 Drop(s) ophthalmic (eye) four times a day 12/29/19 20 2019 Inactive gentamicin 0.3 % eye drops RxNorm: 921414 1 Drop(s) ophthalmic (eye) four times a day 12/29/19 20 2019 Inactive gentamicin 0.3 % eye drops RxNorm: 671263 1 Drop(s) ophthalmic (eye) four times a day 12/29/19 20 2019 Inactive hydrochlorothiazide 25 mg tablet RxNorm: 565944 1 Tablet(s) Oral every day 12/21/19 20 2019 Inactive Sudafed 12 Hour 120 mg tablet,extended release RxNorm: 5718916 TAKE (1) TABLET BY MOUTH EVERY 12 HOURS NEEDED 12/21/19 20 2019 Inactive loperamide 2 mg tablet RxNorm: 503950 1 Tablet(s) Oral as needed take one tablet after each loose stool, maximum of 8 tablets in 24 hours 12/11/19 20 2019 Inactive loperamide 2 mg tablet RxNorm: 181242 1 Tablet(s) Oral as needed take one tablet after each loose stool, maximum of 8 tablets in 24 hours 12/11/19 20 2019 Inactive atorvastatin 40 mg tablet RxNorm: 413904 1 Tablet(s) Oral every day 11/29/19 20 2020 Inactive quetiapine 100 mg tablet RxNorm: 699620 1 Tablet(s) Oral every night at bedtime 11/28/19 20 2019 Inactive sertraline 100 mg tablet RxNorm: 022531 1 Tablet(s) Oral 11/28/19 20 2019 Inactive omeprazole 20 mg capsule,delayed release RxNorm: 619812 1 Capsule(s) Oral every day 11/20/19 20 2019 Inactive amoxicillin 250 mg capsule RxNorm: 244460 1 Capsule(s) Oral three times a day 11/07/19 20 2019 Inactive multivitamin with iron-mineral tablet RxNorm: 1 Tablet(s) Oral every day 10/29/19 20 2021 Inactive cetirizine 10 mg tablet RxNorm: 2322385 1 Tablet(s) PO daily 10/20/19 20 2019 Inactive This refill negates all other refills of this medication. Please do not auto refill Singulair 10 mg tablet RxNorm: 112170 1 Tablet(s) PO daily 10/20/19 20 2019 Inactive This refill negates all other refills of this medication gabapentin 300 mg capsule RxNorm: 094866 1 Capsule(s) PO TID 10/20/19 20 2019 Inactive lisinopril 2.5 mg tablet RxNorm: 954588 1 Tablet(s) PO daily 10/20/19 20 2019 Inactive levothyroxine 50 mcg tablet RxNorm: 955503 1 Tablet(s) PO daily 10/20/19 20 2019 Inactive This refill negates all other refills of this medication fenugreek seed extract 500 mg capsule RxNorm: 1 Capsule(s) Oral three times a day 10/17/19 20 2021 Inactive hydrochlorothiazide 25 mg tablet RxNorm: 177942 1 Tablet(s) Oral every day 10/17/19 20 2019 Inactive Alcohol Prep Pads RxNorm: 577997 1 Patch TOP QAM 10/16/19 20 2020 Inactive loperamide 2 mg tablet RxNorm: 369021 1 Tablet(s) Oral as needed take one [...] 2019 Inactive hydrochlorothiazide 25 mg tablet RxNorm: 891094 1 Tablet(s) Oral every day 09/19/20 19 2019 Inactive Sudafed 12 Hour 120 mg tablet,extended release RxNorm: 7267830 1 Tablet(s) Oral every 12 hours as needed 09/11/20 19 2018 Inactive omeprazole 20 mg capsule,delayed release RxNorm: 650796 1 Capsule(s) Oral every day 09/07/20 19 2019 Inactive Sudafed 12 Hour 120 mg tablet,extended release RxNorm: 0957524 1 Tablet(s) Oral every 12 hours as needed 09/04/20 19 2018 Inactive pantoprazole 40 mg tablet,delayed release RxNorm: 826601 1 Tablet(s) Oral every day 08/24/20 19 2018 Inactive discontinue any other H2Blkr. and PPI albuterol sulfate 2.5 mg/3 mL (0.083 %) solution for nebulization RxNorm: 570681 1 Vial Inhalation every four hours as needed as needed for dyspnea 08/17/202019 Inactive 60/box. This refill negates all other refills of this medication. Please do not fill early. Please do not auto refill. Symbicort 160 mcg-4.5 mcg/actuation HFA aerosol inhaler RxNorm: 2283703 2 Puff(s) INH BID 08/17/20 19 No Stop Date Active Alcohol Prep Pads RxNorm: 099745 1 Patch TOP QAM 08/17/20 19 2019 Inactive Ventolin HFA 90 mcg/actuation aerosol inhaler RxNorm: 250172 2 Puff(s) INH QID 08/09/20 19 2019 Inactive Please do not fill early. Please do not auto refill. This refill negates all other refills of this medication True Metrix Glucose Test Strip RxNorm: 1 Test Strips Miscellaneous QAM 08/09/20 19 2019 Inactive 100/container atorvastatin 40 mg tablet RxNorm: 046196 1 Tablet(s) Oral every day 07/04/20 19 2019 Inactive levmetamfetamine 50 mg nasal inhaler RxNorm: 1 Unit(s) NASAL Q3-4H Do not use more than every 3 hours or 8 times/24hours 06/26/20 19 2021 Inactive Please do not auto refill. This refill negates all other refills of this medication buspirone 7.5 mg tablet RxNorm: 568214 1 Tablet(s) PO BID 06/26/20 19 2020 Inactive This refill negates all other refills of this medication hydrochlorothiazide 12.5 mg tablet RxNorm: 029893 1 Tablet(s) PO QAM 06/26/20 19 2019 Inactive Ventolin HFA 90 mcg/actuation aerosol inhaler RxNorm: 190272 2 Puff(s) INH QID 06/26/20 19 2018 Inactive Please do not fill early. Please do not auto refill. This refill negates all other refills of this medication Singulair 10 mg tablet RxNorm: 597377 1 Tablet(s) PO daily 06/26/20 19 2019 Inactive This refill negates all other refills of this medication cetirizine 10 mg tablet RxNorm: 5666485 1 Tablet(s) PO daily 06/26/20 19 2019 Inactive This refill negates all other refills of this medication. Please do not auto refill levothyroxine 50 mcg tablet RxNorm: 191109 1 Tablet(s) PO daily 06/26/20 19 2019 Inactive This refill negates all other refills of this medication diclofenac sodium 75 mg tablet,delayed release RxNorm: 639697 1 Tablet(s) PO BID 06/26/20 19 2019 Inactive This refill negates all other refills of this medication ranitidine 150 mg tablet RxNorm: 595276 1 Tablet(s) PO BID 06/26/20 19 2018 Inactive This refill negates all other refills of this medication Calcium 600-D3 Plus (mag-zinc) 600 mg calcium-800 unit-50 mg tablet RxNorm: 1 Tablet(s) PO daily take an additonal tablet for itching. 06/26/20 19 2018 Inactive This refill negates all other refills of this medication albuterol sulfate 2.5 mg/3 mL (0.083 %) solution for nebulization RxNorm: 085738 1 Vial INH QID 06/26/20 19 2018 Inactive 60/box. This refill negates all other refills of this medication. Please do not fill early. Please do not auto refill. lisinopril 2.5 mg tablet RxNorm: 752524 1 Tablet(s) PO daily 06/21/20 19 2019 Inactive gabapentin 300 mg capsule RxNorm: 237293 1 Capsule(s) PO TID 06/21/20 19 2019 Inactive atorvastatin 20 mg tablet RxNorm: 352490 1 Tablet(s) PO QHS 06/07/20 19 2018 Inactive This refill negates all other refills of this medication TRUEplus Lancets 30 gauge RxNorm: 1 Lancets Miscellaneous QAM 05/29/20 19 2018 Inactive 100/box gabapentin 300 mg capsule RxNorm: 904406 1 Capsule(s) PO TID 05/03/20 19 2018 Inactive Flintstones Complete (iron) 18 mg iron chewable tablet RxNorm: 1 Tablet(s) PO daily 04/04/20 19 2021 Inactive This refill negates all other refills of this medication gabapentin 300 mg capsule RxNorm: 759863 1 Capsule(s) PO TID as needed 02/01/20 19 2018 Inactive True Metrix Glucose Test Strip RxNorm: 1 Test Strips Miscellaneous QAM 02/01/20 19 2018 Inactive 100/container Alcohol Prep Pads RxNorm: 822440 1 Patch TOP QAM 02/01/20 19 2018 Inactive TRUEplus Lancets 30 gauge RxNorm: 1 Lancets Miscellaneous QAM 02/01/20 19 2018 Inactive 100/box lisinopril 2.5 mg tablet RxNorm: 485516 1 Tablet(s) PO daily 12/28/19 19 2018 Inactive ranitidine 150 mg tablet RxNorm: 529568 1 Tablet(s) PO BID 10/21/19 19 2018 Inactive This refill negates all other refills of this medication albuterol sulfate 2.5 mg/3 mL (0.083 %) solution for nebulization RxNorm: 666173 1 Vial INH QID 10/21/19 19 2018 [...] this medication gabapentin 300 mg capsule RxNorm: 983882 1 Capsule(s) PO TID as needed 10/21/19 19 2018 Inactive atorvastatin 20 mg tablet RxNorm: 456079 1 Tablet(s) PO QHS 10/21/192018 Inactive This refill negates all other refills of this medication trazodone 50 mg tablet RxNorm: 672018 1 Tablet(s) PO QHS 10/21/192018 Inactive This refill negates all other refills of this medication Ventolin HFA 90 mcg/actuation aerosol inhaler RxNorm: 590833 2 Puff(s) INH QID 10/21/192018 Inactive Please do not fill early. Please do not auto refill. This refill negates all other refills of this medication Calcium 600-D3 Plus 600 mg calcium-800 unit-50 mg tablet RxNorm: 1 Tablet(s) PO daily take an additonal tablet for itching. 10/21/192018 Inactive This refill negates all other refills of this medication Singulair 10 mg tablet RxNorm: 146954 1 Tablet(s) PO daily 10/21/192018 Inactive This refill negates all other refills of this medication buspirone 7.5 mg tablet RxNorm: 190229 1 Tablet(s) PO BID 10/21/192018 Inactive This refill negates all other refills of this medication diclofenac sodium 75 mg tablet,delayed release RxNorm: 690655 1 Tablet(s) PO BID 10/21/19 19 2018 Inactive This refill negates all other refills of this medication hydrochlorothiazide 12.5 mg tablet RxNorm: 308806 1 Tablet(s) PO QAM 10/21/192018 Inactive metoprolol succinate ER 50 mg tablet,extended release 24 hr RxNorm: 780594 1 Tablet(s) PO daily 10/21/19 19 2018 Inactive This refill negates all other refills of this medication levothyroxine 50 mcg tablet RxNorm: 594538 1 Tablet(s) PO daily 10/21/19 19 2018 Inactive This refill negates all other refills of this medication cetirizine 10 mg tablet RxNorm: 8999179 1 Tablet(s) PO daily 10/21/19 19 2018 Inactive This refill negates all other refills of this medication. Please do not auto refill Flintstones Complete (iron) 18 mg iron chewable tablet RxNorm: 1 Tablet(s) PO daily 10/21/19 19 2018 Inactive This refill negates all other refills of this medication buspirone 7.5 mg tablet RxNorm: 529789 1 Tablet(s) PO BID 10/12/19 19 2018 Inactive cetirizine 10 mg tablet RxNorm: 9021187 1 Tablet(s) PO daily 09/28/20 18 2018 Inactive Guaiasorb DM 10 mg-100 mg/5 mL oral liquid RxNorm: 765403 10 Milliliter(s) PO As needed every 4 hr 09/24/20 18 2018 Inactive Vicks Vaporub 4.7 %-1.2 %-2.6 % topical ointment RxNorm: 5214611 1 Application TOP TID 09/24/20 18 2018 Inactive levmetamfetamine 50 mg nasal inhaler RxNorm: 1 Unit(s) NASAL Q3-4H 09/24/20 18 2017 Inactive sertraline 50 mg tablet RxNorm: 598321 1 Tablet(s) PO daily 09/09/20 18 2018 Inactive Please note dose trazodone 50 mg tablet RxNorm: 853684 1 Tablet(s) PO QHS 09/06/20 18 2018 Inactive sertraline 50 mg tablet RxNorm: 125018 1 Tablet(s) PO daily 09/06/20 18 2017 Inactive amoxicillin 500 mg tablet RxNorm: 638081 1 Tablet(s) PO Q12H 08/31/20 18 2017 Inactive albuterol sulfate 2.5 mg/3 mL (0.083 %) solution for nebulization RxNorm: 599879 1 Vial INH QID 08/10/20 18 2018 Inactive 60/box. Please do not fill early. Please do not auto refill. Prozac 10 mg capsule RxNorm: 367966 1 Capsule(s) PO daily 08/09/20 18 2017 Inactive buspirone 7.5 mg tablet RxNorm: 575912 1 Tablet(s) PO BID 08/09/20 18 2018 Inactive gabapentin 300 mg capsule RxNorm: 391914 1 Capsule(s) PO TID as needed 08/01/20 18 2018 Inactive hydrochlorothiazide 12.5 mg tablet RxNorm: 125278 1 Tablet(s) PO QAM 08/01/20 18 2018 Inactive ranitidine 150 mg tablet RxNorm: 091550 1 Tablet(s) PO BID 08/01/20 18 2018 Inactive Macrobid 100 mg capsule RxNorm: 443806 1 Capsule(s) PO Q12H 06/21/20 18 2017 Inactive Singulair 10 mg tablet RxNorm: 910427 1 Tablet(s) PO daily 06/14/20 18 2018 Inactive Ventolin HFA 90 mcg/actuation aerosol inhaler RxNorm: 0568033 2 Puff(s) INH QID 06/14/20 18 2018 Inactive Singulair 10 mg tablet RxNorm: 026774 1 Tablet(s) PO daily 06/14/20 18 2017 Inactive buspirone 7.5 mg tablet RxNorm: 803736 1 Tablet(s) PO BID 06/14/20 18 2017 Inactive Prozac 10 mg capsule RxNorm: 787686 1 Capsule(s) PO daily 06/14/20 18 2017 Inactive Neilmed Pediatric Sinus Rinse Refill packet RxNorm: 1 Unit Dose NASAL PRN 05/31/20 18 2021 Inactive diclofenac sodium 75 mg tablet,delayed release RxNorm: 548720 1 Tablet(s) PO BID 05/31/20 18 2017 Inactive lisinopril 2.5 mg tablet RxNorm: 702027 1 Tablet(s) PO daily 05/31/20 18 2017 Inactive metoprolol succinate ER 50 mg tablet,extended release 24 hr RxNorm: 092615 1 Tablet(s) PO daily 05/31/20 18 2017 Inactive levothyroxine 50 mcg tablet RxNorm: 790202 1 Tablet(s) PO daily 05/31/20 18 2017 Inactive TRUEplus Lancets 30 gauge RxNorm: 1 Lancets Miscellaneous QAM 05/31/20 18 2017 Inactive 100/box Ventolin HFA 90 mcg/actuation aerosol inhaler RxNorm: 355660 2 Puff(s) INH QID 05/31/20 18 2017 Inactive Aleve 220 mg capsule RxNorm: 7465892 1 Capsule(s) PO BID 05/31/20 18 2018 Inactive ranitidine 150 mg tablet RxNorm: 194406 1 Tablet(s) PO BID 05/31/20 18 2017 Inactive gabapentin 300 mg capsule RxNorm: 635162 1 Capsule(s) PO TID as needed 05/31/20 18 2017 Inactive atorvastatin 20 mg tablet RxNorm: 797444 1 Tablet(s) PO QHS 05/31/20 18 2017 Inactive True Metrix Glucose Test Strip RxNorm: 1 Test Strips Miscellaneous QAM 05/31/20 18 2017 Inactive 50/container Calcium 600-D3 Plus 600 mg calcium-800 unit-50 mg tablet RxNorm: 1 Tablet(s) PO daily take an additonal tablet for itching. 05/31/20 18 2017 Inactive hydrochlorothiazide 12.5 mg tablet RxNorm: 580905 1 Tablet(s) PO QAM 05/31/20 18 2017 Inactive Flintstones Complete (iron) 18 mg iron chewable tablet RxNorm: 1 Tablet(s) PO daily 05/31/20 18 2017 Inactive d-mannose oral powder RxNorm: PO 18 2021 Inactive True Metrix Glucose Meter RxNorm: miscellaneous 08/17/202018 Inactive sertraline 50 mg tablet RxNorm: 773228 1 Tablet(s) PO daily 11/28/19 20 2019 Inactive loperamide 2 mg tablet RxNorm: 725799 oral 09/29/20 19 2018 Inactive Symbicort 160 mcg-4.5 mcg/actuation HFA aerosol inhaler RxNorm: 9489028 2 Puff(s) INH BID 08/17/202018 Inactive Medication Administered No Medication Administered data Procedures Procedure Codes Date Urinalysis, dip stick CPT-4: 87183 09/24/2020 Patient Health Questionnaire CPT-4: DPHQ Electrocardiogram CPT-4: 63147 05/14/2020 Tobacco Assessment/Screening CPT-4: TCA Fall Risk Assessment SNOMED CT: 72049130 4 CPT-4: DFRA 01/01/2020 Functional Assessment CPT-4: DFA 01/01/2020 Grandin Fany Assessment CPT-4: DSWA 11/04 Patient Health Questionnaire CPT-4: DPHQ Grandin Fany Assessment CPT-4: DSWA 10/03 Hypertension CPT-4: HTN 10/17/2019 Fall Risk Assessment SNOMED CT: 02163922 4 CPT-4: DFRA 09/19/2019 Functional Assessment CPT-4: DFA 09/19/2019 Urinalysis, dip stick CPT-4: 56956 06/21/2019 Tobacco Assessment/Screening CPT-4: TCA Patient Health Questionnaire CPT-4: DPHQ AHA/REBECCA Classification Assessment CPT-4: DAHA 04/25/2019 Controlled Substance Report CPT-4: CTRSU 04/03 Urinalysis, dip stick CPT-4: 93808 03/28/2019 Urinalysis, dip stick CPT-4: 58928 03/28/2019 Y4S-Tbxlxdfzhnypcjz CPT-4: 72254 Unknown T1Q-Rpsgkhrhodcvypk CPT-4: 21223 Unknown M9J-Aqyxjrdwtoomrvc CPT-4: 84629 Unknown I7S-Eubbwkwsiokcelv CPT-4: 57779 Unknown Q5J-Evcfhppxlaisyhq CPT-4: 30706 Unknown X9J-Unxztvxvsscbqgv CPT-4: 34857 Unknown Gynecology Referral SNOMED CT: 969127504 CPT-4: R14 Unknown Reason For Visit Reason For Visit Effective Dates Notes hypertension 11/24/2020 diabetes mellitus 11/24/2020 gastroesophageal reflux disease 11/24/2020 Interim health update 11/24/2020 Encounters Encounter Performer Location Location Address Codes Magdi e ([id number]) (EST PT) EXPANDED PROBLEM FOCUSED TELEHEALTH VISIT Diagnosis: Type 2 diabetes mellitus with peripheral neuropathy[ICD10: E11.42] Diagnosis: Essential (primary) hypertension[ICD1 0: I10] Diagnosis: History of surgery on right wrist[ICD10: Z98.890] Anna Culver [place] [facility] [address] [facility] [address] [place] [address] CPT-4: 39780 11/24/2020 Plan of Care Planned Activity Notes Codes Status Date Visit Plan: patient with access to I phone able to participate in visual and audio telehealth visit E11.42-250.60 Type 2 diabetes mellitus with peripheral neuropathy testing BID and PRN if feeling symptomatic hasn't been testing since right wrist surgery (right side dominant) patient reports feeling symptomatic for BS >100, ranging 100-118, RBS per patient 104, denies symptomatic Metformin 1000mg BID - received new monitor [employer] through [employer]-participant of [employer] on demand -will send all diabetic supplies to patient 10/29/2020 hgb A1C 5.6 10/17/2019 Grandin Fany 7/10-instructed on good daily foot care [...] is December K21.9-530.81 GERD (gastroesophageal reflux disease) will trial famotidine 10mg qam and omeprazole 20mg at bedtime-to review effectiveness at next visit advised to limit late evening eating, avoid fried, greasy foods, and carbonated beverages G47.33-327.23 Obstructive sleep apnea (adult) (pediatric) J45.909-493.90 Asthma continue inhalers nebulizer routine f/u Dr. Garcia, pulmonology appt August 2020 F43.23-309.28 Adjustment disorder with mixed anxiety and depressed mood routine follow up [place] at [place] 08/19/2020 PHQ 9 [place] 1, admits to [...] to right wrist- Dr. Tee Shahid, hand health information specialist, outpatient surgery 10/09/2019 for arthoscopic exam [...] new appt for pap in June 2020-[facility]-reports pap negative-records requested Z01.89-V72.85 Encounter for screening [...] visit verbalized understanding of all above topics. 11/24/2020 Patient Education: Patient Medication Summary Completed 11/24/2020 Patient Education: Diabetes Complete d 11/24/2020 Patient Education: Hypertension Completed 11/24/2020 Appointment: Anna Culver WPtel: [address] [place] [address] E410 10/29/2020 Appointment: Anna Culver WPtel: [address] [place] [address] [place] E410 09/24/2020 Appointment: Anna Culver WPtel: [address] [place] [address] [place] ETV 08/26/2020 Appointment: Anna Culver WPtel: [address] [place] [address] ETV 08/19/2020 Appointment: Anna Culver WPtel: [phone] [place] [address] [place] ETV 07/22/2020 Appointment: Anna Culver WPtel: [address] [place] [address] ETV 07/08/2020 Appointment: Gianna [place]: [address] [facility] 100 [id number] [place] ECHO 07/02/2020 Appointment: Anna Culver WPtel: [address] [place] [address] E452 06/11/2020 Appointment: Anna Culver WPtel: [address] [place] [address] E452 05/14/2020 Appointment: Anna Culver WPtel: [address] [place] [address] E452 04/17/2020 Appointment: Anna Culver WPtel: [address] [place] [address] E452 03/21/2020 Appointment: Anna Culver WPtel: [address] [place] [address] [place] E452 02/14/2020 Appointment: Anna Culver WPtel: [address] [place] [address] E452 01/24/2020 Appointment: Anna Culver WPtel: [address] [place] [address] E452 01/01/2020 Appointment: Anna Culver WPtel: [address] [place] [address] [place] E452 11/28/2019 Appointment: Anna Culver WPtel: [address] [place] [address] E452 10/17/2019 Appointment: Anna Culver WPtel: [address] [place] [address] [place] E452 09/19/2019 Appointment: Sudha Hernadez WPtel: [address] [facility] [id number] [id number] 07/04/2019 Appointment: Sudha Hernadez WPtel: [address] [facility] [id number] [id number] 06/21/2019 Appointment: Mary Grace Oropezaah WPtel: [address] [place] [address] [id number] [id number] 05/24/2019 Appointment: Mallory Delgado E452 04/27/2019 Appointment: Charlene Oropeza WPtel: [address] [place] [address] [id number] E452 04/25/2019 Appointment: Rasta Palafox WPtel: [address] [place] [address] [id number] E452 03/28/2019 Appointment: Rasta Palafox WPtel: [address] [place] [address] [id number] [id number] 02/14/2019 Appointment: Rasta Palafox WPtel: [facility] [id number] E452 01/31/2019 Appointment: Rasta Palafox WPtel: [address] [place] [address] [id number] 12/27/2018 Referral: Pending Gynecology Referral Information Referral Processed Referral: Pending Pulmonolog y Referral Information Referral Processed Referral: Pending Psychiatry Referral Information Referral Initiated Referral: Pending Respirator y Services Referral Information Referral Initiated Referral: Pending Ophthalmology Referral Information Referral Initiated Referral: Romius Spencer [facility] WPtel: [address] Diabetes Educator placed a call out to the patient to notify her that it has been recommended that she be seen by a urologist. Patient agreed to be seen, does not have a provider of choice and no transportation issues. Diabetes Educator faxed referral and clinical notes to [facility] in [place], [place] near the patient's home. Patient to [...] seen and prefers a provider in the [place] or [place] area. Diabetes Educator placed a call out to everyone listed in the area and the only location that was able to accept the patient's insurance was [place] [address] [place] [address] and spoke with Maylin. Maylin asked that the patient's referral, face sheet and visit notes be faxed to . Diabetes Educator faxed over requested documents. Patient appointment confirmation letter generated and mailed to her home address. Patient to call to schedule an appointment. Processed Referral: [facility] WPtel: [address] [place] [address] Patient notified that it has been advised that she be seen by Neurology. Patient agreed to be seen and prefers to be seen by a provider in the [place], [place] area. Patient denies any concerns with transportation, and prefers to schedule her own appointment. Diabetes Educator placed a call out to [facility] and spoke with Neeraj P: who confirmed that their office is able to accept new patients and the patient's insurance. After confirming the providers fax number, sheet writer faxed over the patient's referral, and [...] participate in visual and audio telehealth visit E11.42-250.60 Type 2 diabetes mellitus with peripheral neuropathy testing BID and PRN if feeling symptomatic hasn't been testing since right wrist surgery (right side dominant) patient reports feeling symptomatic for BS >100, ranging 100-118, RBS per patient 104, denies symptomatic Metformin 1000mg BID - received new monitor [employer] through [employer]-participant of [employer] on demand -will send all diabetic supplies to patient 10/29/2020 hgb A1C 5.6 10/17/2019 Grandin Fany 10-instructed on good daily foot care [...] is December K21.9-530.81 GERD (gastroesophageal reflux disease) will trial famotidine 10mg qam and omeprazole 20mg at bedtime-to review effectiveness at next visit advised to limit late evening eating, avoid fried, greasy foods, and carbonated beverages G47.33-327.23 Obstructive sleep apnea (adult) (pediatric); J45.909-493.90 Asthma continue inhalers nebulizer routine f/u Dr. Garcia, pulmonology appt August 2020 F43.23-309.28 Adjustment disorder with mixed anxiety and depressed mood routine follow up [place] [facility] [place] 08/19/2020 PHQ 9 Scoere 1, admits to [...] to right wrist- Dr. Tee Shahid, hand health information specialist, outpatient surgery 10/09/2019 for arthoscopic exam [...] new appt for pap in June 2020-[facility]-reports pap negative-records requested Z01.89-V72.85 Encounter for screening [...] visit verbalized understanding of all above topics. 11/24/2020 Medical Equipment No Medical Equipment data Advance Directives No Advance Directive data
--- OUTSIDE RECORDS SUMMARY | 2023-12-07 02:14 | XMS_ITS | CCD ---
Author Name Leena Cluver NP Address [address] [place] [address] [place] [id number] Phone Organization [email or web address] Phone Care Team Providers Care Application Engineer Name Role Phone Anna Culver NP Primary Care Provider Unav ailable Unavailable Chronic Care Management Unavaila ble Summary Purpose DataExchange Insurance Providers Payer name Policy type / Coverage type Covered republican ID Effective Begin Date Effective End Date SUKI MAYO [id number] Unknown Unknown Family history Mother Diagnosis Age [...] Unknown Disability 05/31/[address]: 716479424 Has never s moked or chewed tobacco 05/31/[address]: 322449908 Never drinks alco hol 05/31/2018 Has the [...] (mild) ICD-10: N18.2 ICD-9: 585.2 10/29/2020 Active Essential (primary) hypertension ICD-10: I10 ICD-9: 401.9 10/03/2018 Active GERD (gastroesophageal reflu x disease) ICD-10: K21.9 ICD-9: 530.81 09/07/2019 Active History of surgery on right wrist ICD-10 : Z98.890 ICD-9: V45.89 10/29/2020 Active Right wrist pain ICD-10: M25.531 ICD-9: 719.43 05/14/2020 Active Type 2 diabetes mellitus wit h peripheral neuropathy ICD-10: E11.42 ICD-9: 250.60 11/28/2019 Active Urinary tract infection ICD-10: N39.0 ICD-9: [...] use ICD-10: Z01.89 ICD-9: V72.85 01/01/2020 Active [place] [facility] ICD-10: H10.029 ICD-9: 372.03 12/29/2019 Active [...] ICD-10: UXZ.01 ICD-9: XZ0.1 04/27/2019 Active Other fpc (current) dr sharma therapy ICD-10: Z79.899 ICD-9: [...] Status Fill Instructions Alcohol Prep Pads RxNorm: 306109 USE EACH MORNING 10/14/19 21 2020 Inactive omeprazole 20 mg capsule,delayed release RxNorm: 143389 1 Capsule(s) Oral two times a day 10/13/19 21 2021 Inactive omeprazole 20 mg capsule,delayed release RxNorm: 346591 TAKE 1 CAPSULE BY MOUTH EVERY DAY 10/08/19 21 2021 Inactive Macrobid 100 mg capsule RxNorm: 357256 1 Capsule(s) Oral every 12 hours with food 10/01/20 20 2020 Inactive omeprazole 20 mg capsule,delayed release RxNorm: 853021 1 Capsule(s) Oral two times a day 09/24/20 20 2021 Inactive metformin 1,000 mg tablet RxNorm: 005768 1 Tablet(s) Oral two times a day 08/19/20 20 2020 Inactive start on September 11, 2020 metformin 500 mg tablet RxNorm: 460263 1 Tablet(s) Oral two times a day take with 500mg to equal 1000mg 08/19/20 20 2019 Inactive gabapentin 300 mg capsule RxNorm: 652987 TAKE 1 CAPSULE BY MOUTH THREE TIMES DAILY 07/11/20 20 2020 Inactive cetirizine 10 mg tablet RxNorm: 3731932 TAKE (1) TABLET BY MOUTH DAILY 07/11/20 20 2020 Inactive metformin 500 mg tablet RxNorm: 862853 1 Tablet(s) Oral two times a day 07/08/20 20 2019 Inactive loperamide 2 mg tablet RxNorm: 189236 1 Tablet(s) Oral as needed take one tablet after each loose stool, maximum of 8 tablets in 24 hours 06/24/20 20 2021 Inactive Sudafed 12 Hour 120 mg tablet,extended release RxNorm: 8473882 TAKE 1 TABLET BY MOUTH EVERY 12 HOURS NEEDED 06/11/20 20 2019 Inactive hydrochlorothiazide 25 mg tablet RxNorm: 411175 TAKE (1) TABLET BY MOUTH EVERY DAY 06/11/20 20 2019 Inactive omeprazole 20 mg capsule,delayed release RxNorm: 338870 TAKE 1 CAPSULE BY MOUTH EVERY DAY 05/14/20 20 2020 Inactive metformin 500 mg tablet RxNorm: 356795 1 Tablet(s) Oral every day 05/12/20 20 2019 Inactive True Metrix Glucose Test Strip RxNorm: 1 Test Strips Miscellaneous two times a day as needed 04/17/20 No Stop Date Active metformin 500 mg tablet RxNorm: 601200 1 Tablet(s) Oral every day 04/17/20 20 2019 Inactive diclofenac sodium 75 mg tablet,delayed release RxNorm: 737849 1 Tablet(s) PO BID 04/14/20 20 2021 Inactive This refill negates all other refills of this medication Sudafed 12 Hour 120 mg tablet,extended release RxNorm: 7583607 TAKE 1 TABLET BY MOUTH EVERY 12 HOURS NEEDED 03/14/20 20 2019 Inactive True Metrix Glucose Test Strip RxNorm: 1 Test Strips Miscellaneous every morning 03/13/20 20 2019 Inactive 100/container True Metrix Glucose Test Strip RxNorm: 1 Test Strips Miscellaneous QA 02/22/20 20 2019 Inactive 100/container loperamide 2 mg tablet RxNorm: 874901 1 Tablet(s) Oral as needed take one tablet after each loose stool, maximum of 8 tablets in 24 hours 02/22/20 20 2019 Inactive levothyroxine 50 mcg tablet RxNorm: 403964 1 Tablet(s) PO daily 01/17/20 20 2020 Inactive cetirizine 10 mg tablet RxNorm: 8714012 1 Tablet(s) PO daily 01/17/20 20 2019 Inactive loperamide 2 mg tablet RxNorm: 439018 1 Tablet(s) Oral as needed take one tablet after each loose stool, maximum of 8 tablets in 24 hours 01/17/20 20 2019 Inactive quetiapine 100 mg tablet RxNorm: 375767 1 Tablet(s) Oral every night at bedtime 01/17/20 20 2019 Inactive gabapentin 300 mg capsule RxNorm: 730299 1 Capsule(s) PO TID 01/17/20 20 2019 Inactive lisinopril 2.5 mg tablet RxNorm: 010089 1 Tablet(s) PO daily 01/15/20 20 2020 Inactive Singulair 10 mg tablet RxNorm: 085712 1 Tablet(s) PO daily 01/15/20 20 2020 Inactive levothyroxine 50 mcg tablet RxNorm: 377019 1 Tablet(s) PO daily 01/15/20 20 2019 Inactive gabapentin 300 mg capsule RxNorm: 419520 1 Capsule(s) PO TID 01/15/20 20 2019 Inactive cetirizine 10 mg tablet RxNorm: 3339270 1 Tablet(s) PO daily 01/15/20 20 2019 Inactive gentamicin 0.3 % eye drops RxNorm: 124324 1 Drop(s) ophthalmic (eye) four times a day 12/29/19 20 2019 Inactive gentamicin 0.3 % eye drops RxNorm: 128858 1 Drop(s) ophthalmic (eye) four times a day 12/29/19 20 2019 Inactive gentamicin 0.3 % eye drops RxNorm: 141716 1 Drop(s) ophthalmic (eye) four times a day 12/29/19 20 2019 Inactive hydrochlorothiazide 25 mg tablet RxNorm: 609579 1 Tablet(s) Oral every day 12/21/19 20 2019 Inactive Sudafed 12 Hour 120 mg tablet,extended release RxNorm: 0180914 TAKE (1) TABLET BY MOUTH EVERY 12 HOURS NEEDED 12/21/19 20 2019 Inactive loperamide 2 mg tablet RxNorm: 666899 1 Tablet(s) Oral as needed take one tablet after each loose stool, maximum of 8 tablets in 24 hours 12/11/19 20 2019 Inactive loperamide 2 mg tablet RxNorm: 182531 1 Tablet(s) Oral as needed take one tablet after each loose stool, maximum of 8 tablets in 24 hours 12/11/19 20 2019 Inactive atorvastatin 40 mg tablet RxNorm: 374396 1 Tablet(s) Oral every day 11/29/19 20 2020 Inactive quetiapine 100 mg tablet RxNorm: 996568 1 Tablet(s) Oral every night at bedtime 11/28/19 20 2019 Inactive sertraline 100 mg tablet RxNorm: 543050 1 Tablet(s) Oral 11/28/19 20 2019 Inactive omeprazole 20 mg capsule,delayed release RxNorm: 254225 1 Capsule(s) Oral every day 11/20/19 20 2019 Inactive amoxicillin 250 mg capsule RxNorm: 357952 1 Capsule(s) Oral three times a day 11/07/19 20 2019 Inactive multivitamin with iron-mineral tablet RxNorm: 1 Tablet(s) Oral every day 10/29/19 20 2021 Inactive cetirizine 10 mg tablet RxNorm: 7489169 1 Tablet(s) PO daily 10/20/19 20 2019 Inactive This refill negates all other refills of this medication. Please do not auto refill Singulair 10 mg tablet RxNorm: 267768 1 Tablet(s) PO daily 10/20/19 20 2019 Inactive This refill negates all other refills of this medication gabapentin 300 mg capsule RxNorm: 425840 1 Capsule(s) PO TID 10/20/19 20 2019 Inactive lisinopril 2.5 mg tablet RxNorm: 035109 1 Tablet(s) PO daily 10/20/19 20 2019 Inactive levothyroxine 50 mcg tablet RxNorm: 771137 1 Tablet(s) PO daily 10/20/19 20 2019 Inactive This refill negates all other refills of this medication fenugreek seed extract 500 mg capsule RxNorm: 1 Capsule(s) Oral three times a day 10/17/19 20 2021 Inactive hydrochlorothiazide 25 mg tablet RxNorm: 743103 1 Tablet(s) Oral every day 10/17/19 20 2019 Inactive Alcohol Prep Pads RxNorm: 607592 1 Patch TOP QAM 10/16/19 20 2020 Inactive loperamide 2 mg tablet RxNorm: 359087 1 Tablet(s) Oral as needed take one [...] 2019 Inactive hydrochlorothiazide 25 mg tablet RxNorm: 000165 1 Tablet(s) Oral every day 09/19/20 19 2019 Inactive Sudafed 12 Hour 120 mg tablet,extended release RxNorm: 5554705 1 Tablet(s) Oral every 12 hours as needed 09/11/20 19 2018 Inactive omeprazole 20 mg capsule,delayed release RxNorm: 806413 1 Capsule(s) Oral every day 09/07/20 19 2019 Inactive Sudafed 12 Hour 120 mg tablet,extended release RxNorm: 5748429 1 Tablet(s) Oral every 12 hours as needed 09/04/20 19 2018 Inactive pantoprazole 40 mg tablet,delayed release RxNorm: 344402 1 Tablet(s) Oral every day 08/24/20 19 2018 Inactive discontinue any other H2Blkr. and PPI albuterol sulfate 2.5 mg/3 mL (0.083 %) solution for nebulization RxNorm: 011577 1 Vial Inhalation every four hours as needed as needed for dyspnea 08/17/202019 Inactive 60/box. This refill negates all other refills of this medication. Please do not fill early. Please do not auto refill. Symbicort 160 mcg-4.5 mcg/actuation HFA aerosol inhaler RxNorm: 5478785 2 Puff(s) INH BID 08/17/20 No Stop Date Active Alcohol Prep Pads RxNorm: 038997 1 Patch TOP QAM 08/17/202019 Inactive Ventolin HFA 90 mcg/actuation aerosol inhaler RxNorm: 864246 2 Puff(s) INH QID 08/09/202019 Inactive Please do not fill early. Please do not auto refill. This refill negates all other refills of this medication True Metrix Glucose Test Strip RxNorm: 1 Test Strips Miscellaneous QAM 08/09/20 19 2019 Inactive 100/container atorvastatin 40 mg tablet RxNorm: 176702 1 Tablet(s) Oral every day 07/04/20 19 2019 Inactive levmetamfetamine 50 mg nasal inhaler RxNorm: 1 Unit(s) NASAL Q3-4H Do not use more than every 3 hours or 8 times/24hours 06/26/20 19 2021 Inactive Please do not auto refill. This refill negates all other refills of this medication buspirone 7.5 mg tablet RxNorm: 003762 1 Tablet(s) PO BID 06/26/20 19 2020 Inactive This refill negates all other refills of this medication hydrochlorothiazide 12.5 mg tablet RxNorm: 255126 1 Tablet(s) PO QAM 06/26/20 19 2019 Inactive Ventolin HFA 90 mcg/actuation aerosol inhaler RxNorm: 066120 2 Puff(s) INH QID 06/26/20 19 2018 Inactive Please do not fill early. Please do not auto refill. This refill negates all other refills of this medication Singulair 10 mg tablet RxNorm: 259000 1 Tablet(s) PO daily 06/26/20 19 2019 Inactive This refill negates all other refills of this medication cetirizine 10 mg tablet RxNorm: 7309786 1 Tablet(s) PO daily 06/26/20 19 2019 Inactive This refill negates all other refills of this medication. Please do not auto refill levothyroxine 50 mcg tablet RxNorm: 494281 1 Tablet(s) PO daily 06/26/20 19 2019 Inactive This refill negates all other refills of this medication diclofenac sodium 75 mg tablet,delayed release RxNorm: 852836 1 Tablet(s) PO BID 06/26/20 19 2019 Inactive This refill negates all other refills of this medication ranitidine 150 mg tablet RxNorm: 343409 1 Tablet(s) PO BID 06/26/20 19 2018 Inactive This refill negates all other refills of this medication Calcium 600-D3 Plus (mag-zinc) 600 mg calcium-800 unit-50 mg tablet RxNorm: 1 Tablet(s) PO daily take an additonal tablet for itching. 06/26/20 19 2018 Inactive This refill negates all other refills of this medication albuterol sulfate 2.5 mg/3 mL (0.083 %) solution for nebulization RxNorm: 325560 1 Vial INH QID 06/26/20 19 2018 Inactive 60/box. This refill negates all other refills of this medication. Please do not fill early. Please do not auto refill. lisinopril 2.5 mg tablet RxNorm: 001892 1 Tablet(s) PO daily 06/21/20 19 2019 Inactive gabapentin 300 mg capsule RxNorm: 814313 1 Capsule(s) PO TID 06/21/20 19 2019 Inactive atorvastatin 20 mg tablet RxNorm: 150502 1 Tablet(s) PO QHS 06/07/20 19 2018 Inactive This refill negates all other refills of this medication TRUEplus Lancets 30 gauge RxNorm: 1 Lancets Miscellaneous QAM 05/29/20 19 2018 Inactive 100/box gabapentin 300 mg capsule RxNorm: 527417 1 Capsule(s) PO TID 05/03/20 19 2018 Inactive Flintstones Complete (iron) 18 mg iron chewable tablet RxNorm: 1 Tablet(s) PO daily 04/04/202021 Inactive This refill negates all other refills of this medication gabapentin 300 mg capsule RxNorm: 939720 1 Capsule(s) PO TID as needed 02/01/20 19 2018 Inactive True Metrix Glucose Test Strip RxNorm: 1 Test Strips Miscellaneous QAM 02/01/20 19 2018 Inactive 100/container Alcohol Prep Pads RxNorm: 034070 1 Patch TOP QAM 02/01/20 19 2018 Inactive TRUEplus Lancets 30 gauge RxNorm: 1 Lancets Miscellaneous QAM 02/01/20 19 2018 Inactive 100/box lisinopril 2.5 mg tablet RxNorm: 445301 1 Tablet(s) PO daily 12/28/19 19 2018 Inactive ranitidine 150 mg tablet RxNorm: 098357 1 Tablet(s) PO BID 10/21/19 19 2018 Inactive This refill negates all other refills of this medication albuterol sulfate 2.5 mg/3 mL (0.083 %) solution for nebulization RxNorm: 839227 1 Vial INH QID 10/21/19 19 2018 [...] this medication gabapentin 300 mg capsule RxNorm: 803235 1 Capsule(s) PO TID as needed 10/21/19 19 2018 Inactive atorvastatin 20 mg tablet RxNorm: 074421 1 Tablet(s) PO QHS 10/21/19 19 2018 Inactive This refill negates all other refills of this medication trazodone 50 mg tablet RxNorm: 435496 1 Tablet(s) PO QHS 10/21/19 19 2018 Inactive This refill negates all other refills of this medication Ventolin HFA 90 mcg/actuation aerosol inhaler RxNorm: 220638 2 Puff(s) INH QID 10/21/19 19 2018 Inactive Please do not fill early. Please do not auto refill. This refill negates all other refills of this medication Calcium 600-D3 Plus 600 mg calcium-800 unit-50 mg tablet RxNorm: 1 Tablet(s) PO daily take an additonal tablet for itching. 10/21/192018 Inactive This refill negates all other refills of this medication Singulair 10 mg tablet RxNorm: 567158 1 Tablet(s) PO daily 10/21/19 19 2018 Inactive This refill negates all other refills of this medication buspirone 7.5 mg tablet RxNorm: 753671 1 Tablet(s) PO BID 10/21/192018 Inactive This refill negates all other refills of this medication diclofenac sodium 75 mg tablet,delayed release RxNorm: 872107 1 Tablet(s) PO BID 10/21/192018 Inactive This refill negates all other refills of this medication hydrochlorothiazide 12.5 mg tablet RxNorm: 658219 1 Tablet(s) PO QAM 10/21/192018 Inactive metoprolol succinate ER 50 mg tablet,extended release 24 hr RxNorm: 446930 1 Tablet(s) PO daily 10/21/192018 Inactive This refill negates all other refills of this medication levothyroxine 50 mcg tablet RxNorm: 028436 1 Tablet(s) PO daily 10/21/192018 Inactive This refill negates all other refills of this medication cetirizine 10 mg tablet RxNorm: 6902841 1 Tablet(s) PO daily 10/21/192018 Inactive This refill negates all other refills of this medication. Please do not auto refill Flintstones Complete (iron) 18 mg iron chewable tablet RxNorm: 1 Tablet(s) PO daily 10/21/192018 Inactive This refill negates all other refills of this medication buspirone 7.5 mg tablet RxNorm: 430374 1 Tablet(s) PO BID 10/12/192018 Inactive cetirizine 10 mg tablet RxNorm: 7997967 1 Tablet(s) PO daily 09/28/202018 Inactive Guaiasorb DM 10 mg-100 mg/5 mL oral liquid RxNorm: 542123 10 Milliliter(s) PO As needed every 4 hr 09/24/202018 Inactive Vicks Vaporub 4.7 %-1.2 %-2.6 % topical ointment RxNorm: 4216381 1 Application TOP TID 09/24/20 18 2018 Inactive levmetamfetamine 50 mg nasal inhaler RxNorm: 1 Unit(s) NASAL Q3-4H 09/24/20 18 2017 Inactive sertraline 50 mg tablet RxNorm: 992308 1 Tablet(s) PO daily 09/09/20 18 2018 Inactive Please note dose trazodone 50 mg tablet RxNorm: 564126 1 Tablet(s) PO QHS 09/06/20 18 2018 Inactive sertraline 50 mg tablet RxNorm: 340417 1 Tablet(s) PO daily 09/06/20 18 2017 Inactive amoxicillin 500 mg tablet RxNorm: 888146 1 Tablet(s) PO Q12H 08/31/20 18 2017 Inactive albuterol sulfate 2.5 mg/3 mL (0.083 %) solution for nebulization RxNorm: 226578 1 Vial INH QID 08/10/20 18 2018 Inactive 60/box. Please do not fill early. Please do not auto refill. Prozac 10 mg capsule RxNorm: 461657 1 Capsule(s) PO daily 08/09/20 18 2017 Inactive buspirone 7.5 mg tablet RxNorm: 910003 1 Tablet(s) PO BID 08/09/20 18 2018 Inactive gabapentin 300 mg capsule RxNorm: 121551 1 Capsule(s) PO TID as needed 08/01/20 18 2018 Inactive hydrochlorothiazide 12.5 mg tablet RxNorm: 326870 1 Tablet(s) PO QAM 08/01/20 18 2018 Inactive ranitidine 150 mg tablet RxNorm: 899913 1 Tablet(s) PO BID 08/01/20 18 2018 Inactive Macrobid 100 mg capsule RxNorm: 087333 1 Capsule(s) PO Q12H 06/21/20 18 2017 Inactive Singulair 10 mg tablet RxNorm: 620962 1 Tablet(s) PO daily 06/14/20 18 2018 Inactive Ventolin HFA 90 mcg/actuation aerosol inhaler RxNorm: 4003510 2 Puff(s) INH QID 06/14/20 18 2018 Inactive Singulair 10 mg tablet RxNorm: 307324 1 Tablet(s) PO daily 06/14/20 18 2017 Inactive buspirone 7.5 mg tablet RxNorm: 532533 1 Tablet(s) PO BID 06/14/20 18 2017 Inactive Prozac 10 mg capsule RxNorm: 388336 1 Capsule(s) PO daily 06/14/20 18 2017 Inactive Neilmed Pediatric Sinus Rinse Refill packet RxNorm: 1 Unit Dose NASAL PRN 05/31/20 18 2021 Inactive diclofenac sodium 75 mg tablet,delayed release RxNorm: 902827 1 Tablet(s) PO BID 05/31/20 18 2017 Inactive lisinopril 2.5 mg tablet RxNorm: 372743 1 Tablet(s) PO daily 05/31/20 18 2017 Inactive metoprolol succinate ER 50 mg tablet,extended release 24 hr RxNorm: 914841 1 Tablet(s) PO daily 05/31/20 18 2017 Inactive levothyroxine 50 mcg tablet RxNorm: 368292 1 Tablet(s) PO daily 05/31/20 18 2017 Inactive TRUEplus Lancets 30 gauge RxNorm: 1 Lancets Miscellaneous QAM 05/31/20 18 2017 Inactive 100/box Ventolin HFA 90 mcg/actuation aerosol inhaler RxNorm: 377695 2 Puff(s) INH QID 05/31/20 18 2017 Inactive Aleve 220 mg capsule RxNorm: 8312240 1 Capsule(s) PO BID 05/31/20 18 2018 Inactive ranitidine 150 mg tablet RxNorm: 075972 1 Tablet(s) PO BID 05/31/20 18 2017 Inactive gabapentin 300 mg capsule RxNorm: 165376 1 Capsule(s) PO TID as needed 05/31/20 18 2017 Inactive atorvastatin 20 mg tablet RxNorm: 354372 1 Tablet(s) PO QHS 05/31/20 18 2017 Inactive True Metrix Glucose Test Strip RxNorm: 1 Test Strips Miscellaneous QAM 05/31/20 18 2017 Inactive 50/container Calcium 600-D3 Plus 600 mg calcium-800 unit-50 mg tablet RxNorm: 1 Tablet(s) PO daily take an additonal tablet for itching. 05/31/20 18 2017 Inactive hydrochlorothiazide 12.5 mg tablet RxNorm: 883432 1 Tablet(s) PO QAM 05/31/20 18 2017 Inactive Flintstones Complete (iron) 18 mg iron chewable tablet RxNorm: 1 Tablet(s) PO daily 05/31/20 18 2017 Inactive d-mannose oral powder RxNorm: PO 18 2021 Inactive True Metrix Glucose Meter RxNorm: miscellaneous 08/17/20 19 2018 Inactive sertraline 50 mg tablet RxNorm: 654985 1 Tablet(s) PO daily 11/28/19 20 2019 Inactive loperamide 2 mg tablet RxNorm: 324086 oral 09/29/20 19 2018 Inactive Symbicort 160 mcg-4.5 mcg/actuation HFA aerosol inhaler RxNorm: 8811436 2 Puff(s) INH BID 08/17/20 19 2018 Inactive Medication Administered No Medication Administered data Results Observation Observation Code Item Item Code Result Date Service Location PREALBUMIN 71183 Prealbumin 01084-9 32 mg/dL 11/03/19 [facility] [address] [place] [address] CHEM 14 (METABOLIC PANEL) 45745 Glucose 2345-7 153 mg/dL 11/03/19 21 [facility] [address] [place] [address] CHEM 14 (METABOLIC PANEL) 68303 BUN 3094-0 15 mg/dL 11/03/19 [facility] [address] [place] [address] CHEM 14 (METABOLIC PANEL) 89782 Creatinine 2160-0 0.7 mg/dL 11/03/19 [facility] [address] [place] [address] CHEM 14 (METABOLIC PANEL) 82278 BUN/Creat Ratio 3097-3 21.4 11/03/19 21 [facility] [address] [place] [address] CHEM 14 (METABOLIC PANEL) 50486 GFR Estimated 68812-5 95 mL/min/1.7 3m2 11/03/19 21 [facility] [address] [place] [address] CHEM 14 (METABOLIC PANEL) 27699 GFR Estimated for Americans 63565-2 115 mL/min/1.7 3m2 11/03/19 21 [facility] [address] [place] [address] CHEM 14 (METABOLIC PANEL) 73032 Sodium 2951-2 139 mmol/L 11/03/19 21 [facility] [address] [place] [address] CHEM 14 (METABOLIC PANEL) 32688 Potassium 2823-3 3.7 mmol/L 11/03/19 21 [facility] [address] [place] [address] CHEM 14 (METABOLIC PANEL) 53409 Chloride 2075-0 102 mmol/L 11/03/19 21 [facility] [address] [place] [address] CHEM 14 (METABOLIC PANEL) 84666 Total CO2 2028-9 29 mmol/L 11/03/19 21 [facility] [address] [place] [address] CHEM 14 (METABOLIC PANEL) 03905 Anion Gap 1863-0 11.7 mEq/L 11/03/19 21 [facility] [address] [place] [address] CHEM 14 (METABOLIC PANEL) 39092 Calculated Serum Osmolality 32285-3 292 mOsm/kg 11/03/19 21 [facility] [address] [place] [address] CHEM 14 (METABOLIC PANEL) 50548 Albumin 94921-3 3.7 g/dL 11/03/19 21 [facility] [address] [place] [address] CHEM 14 (METABOLIC PANEL) 75096 Total Protein 2885-2 6.9 g/dL 11/03/19 21 [facility] [address] [place] [address]993 CHEM 14 (METABOLIC PANEL) 39216 Globulin 2336-6 3.2 g/dL 11/03/19 21 [facility] [address] [place] [address] CHEM 14 (METABOLIC PANEL) 64234 Albumin/Globul in Ratio 1759-0 1.2 11/03/19 [facility] [address] [place] [address] CHEM 14 (METABOLIC PANEL) 72322 ALK PHOS 6768-6 66.00 U/L 11/03/19 21 [facility] [address] [place] [address] 78185 CHEM 14 (METABOLIC PANEL) 38230 SGOT/AST 1920-8 21 U/L 11/03/19 21 [facility] [address] [place] [address]102 CHEM 14 (METABOLIC PANEL) 03974 SGPT/ALT 1743-4 34 U/L 11/03/19 21 [facility] [address] [place] [address] 22730 CHEM 14 (METABOLIC PANEL) 73341 Total Bilirubin 1975-2 0.3 mg/dL 11/03/19 21 [facility] [address] [place] [address] 35184 CHEM 14 (METABOLIC PANEL) 69349 Calcium 78704-1 9.0 mg/dL 11/03/19 21 [facility] [address] [place] [address] CHEM 14 (METABOLIC PANEL) 79776 Corrected Calcium 69875-3 9.4 mg/dL 11/03/19 21 [facility] [address] [place] [address] 83120 MAGNESIUM 68567 Magnesium 87932-5 1.6 mg/dL 11/03/19 21 [facility] [address] [place] [address] 36975 [id number] BIN 4548-4 Glyco HGB A1C 05976-0 5.6 % 11/01/19 [facility] [address] [place] [address] [id number] BIN 4548-4 eAG 13703-5 114 mg/dL 11/01/19 [facility] [address] [place] [address] Procedures Procedure Codes Date Glucose Blood Test CPT-4: 38057 10/29/2020 Urinalysis, dip stick CPT-4: 77939 09/24/2020 Patient Health Questionnaire CPT-4: DPHQ Electrocardiogram CPT-4: 71117 05/14/2020 Tobacco Assessment/Screening CPT-4: TCA Fall Risk Assessment SNOMED CT: 91096877 4 CPT-4: DFRA 01/01/2020 Functional Assessment CPT-4: DFA 01/01/2020 [place] Assessment CPT-4: DSWA 11/04 Patient Health Questionnaire CPT-4: DPHQ [place] Fany Assessment CPT-4: DSWA 10/03 Hypertension CPT-4: HTN 10/17/2019 Fall Risk Assessment SNOMED CT: 81959184 4 CPT-4: DFRA 09/19/2019 Functional Assessment CPT-4: DFA 09/19/2019 Urinalysis, dip stick CPT-4: 56634 06/21/2019 Tobacco Assessment/Screening CPT-4: TCA Patient Health Questionnaire CPT-4: DPHQ AHA/REBECCA Classification Assessment CPT-4: DAHA 04/25/2019 Controlled Substance Report CPT-4: CTRSU 04/03 Urinalysis, dip stick CPT-4: 91266 03/28/2019 Urinalysis, dip stick CPT-4: 64112 03/28/2019 O8E-Fuxxsbjrqnhmzoy CPT-4: 31729 Unknown G8I-Vhzolpjpoamceax CPT-4: 88099 Unknown E6U-Xjxuisqhhjoryvo CPT-4: 07510 Unknown L0D-Pcviulgwuftftxb CPT-4: 83663 Unknown B7P-Fqlmaalfyjqhfvu CPT-4: 91763 Unknown T6A-Bgiarceolrivvhc CPT-4: 04387 Unknown Gynecology Referral SNOMED CT: 579176135 CPT-4: R14 Unknown Vital Signs Date Vital 10/29/2020 Blood Pressure 1: 98/66 Code: 8480-6 BMI: 53.3 Code: 02272-6 Heart Rate 1: 80 bpm Height: 4'11 Code: 8302-2 Respiratory Rate: 16 bpm SpO2: 99% Temperature: 36.6 (C) / 97.9 (F) Weight: 264 lbs Code: 34972-6 Reason For Visit Reason For Visit Effective Dates Notes hypertension 10/29/2020 diabetes mellitus 10/29/2020 gastroesophageal reflux disease 10/29/2020 Interim health update 10/29/2020 Encounters Encounter Performer Location Location Address Codes Mag[facility] e HOME VISIT EST PATIENT Diagnosis: Type 2 diabetes mellitus with peripheral neuropathy[ICD10: E11.42] Diagnosis: Chronic kidney disease, stage 2 (mild)[ICD10: N18.2] Diagnosis: Right wrist pain[ICD10: M25.531] Diagnosis: Essential (primary) hypertension[ICD1 0: I10] Diagnosis: GERD (gastroesophageal reflux disease)[ICD10: K21.9] Diagnosis: History of surgery on right wrist[ICD10: Z98.890] Diagnosis: Adjustment disorder with mixed anxiety and depressed mood[ICD10: F43.23] Anna Tejada Office [address] [place] [address] CPT-4: 19882 10/29/2020 Plan of Care Planned Activity Notes Codes Status Date Patient Education: Patient Medication Summary Completed 10/29/2020 Patient Education: Hypertension Completed 10/29/2020 Patient Education: Diabetes Complete d 10/29/2020 Appointment: Anna Culvertel: [address] [place] [address] [place] [id number] 09/24/2020 Appointment: Anna Culver WPtel: [address] [place] [address] [place] ETV 08/26/2020 Appointment: Anna Culver WPtel: [address] [place] [address] [place] ETV 08/19/2020 Appointment: Anna Culver WPtel: [address] [place] [address] ETV 07/22/2020 Appointment: Anna Culvertel: [address] [address] [place] ETV 07/08/2020 Appointment: Gianna Birmingham: [address] [facility] [address] [id number] [place] ECHO 07/02/2020 Appointment: Anna Culver WPtel: [id number] [place] [address] [place] E452 06/11/2020 Appointment: Anna Culver WPtel: [id number] [place] [address] E452 05/14/2020 Appointment: Anna Culver WPtel: [address] [place] [address] E452 04/17/2020 Appointment: Anna Culver WPtel: [address] [place] [address] E452 03/21/2020 Appointment: Anna Culver WPtel: [address] [place] [address] E452 02/14/2020 Appointment: Anna Culver WPtel: [address] [place] [address] E452 01/24/2020 Appointment: Anna Culver WPtel: [address] [place] [address] E452 01/01/2020 Appointment: Anna Culver WPtel: [address] [place] [address] [place] E452 11/28/2019 Appointment: Anna Culver WPtel: [address] [place] [address] [place] E452 10/17/2019 Appointment: Anna Culver WPtel: [address] [place] [address] E452 09/19/2019 Appointment: Sudha Hernadez WPtel: [address] [facility] [address] [id number] E452 07/04/2019 Appointment: Maricarmen Lorimina WPtel: [address] [facility] [id number] [id number] 06/21/2019 Appointment: Charlene Oropeza WPtel: [address] [place] [address] [id number] E452 05/24/2019 Appointment: Mallory Delgado E452 04/27/2019 Appointment: Charlene Oropeza WPtel: [address] [place] [address] [id number] E452 04/25/2019 Appointment: Rasta Palafox WPtel: [address] [place] [address] [id number] E452 03/28/2019 Appointment: Rasta Palafox WPtel: [address] [place] [address] [id number] E452 02/14/2019 Appointment: Rasta Palafox WPtel: [address] [place] [address] [id number] E452 01/31/2019 Appointment: Rasta Palafox WPtel: [address] [place] [address] [id number] E420 12/27/2018 Referral: Pending Gynecology Referral Information Referral Processed Referral: Pending Pulmonolog y Referral Information Referral Processed Referral: Pending Psychiatry Referral Information Referral Initiated Referral: Pending Respirator y Services Referral Information Referral Initiated Referral: Pending Ophthalmology Referral Information Referral Initiated [facility] W[facility]el: [address] [place] [address] Housing Director placed a call out to the patient to notify her that it has been recommended that she be seen by a urologist. Patient agreed to be seen, does not have a provider of choice and no transportation issues. Housing Director faxed referral and clinical notes to [facility] in [place], [place] near the patient's home. Patient to [...] seen and prefers a provider in the [place] area. Housing Director placed a call out to everyone listed in the area and the only location that was able to accept the patient's insurance was [place] [address] [place] [address] and spoke with Maylin. Maylin asked that the patient's referral, face sheet and visit notes be faxed to . Housing Director faxed over requested documents. Patient appointment confirmation letter generated and mailed to her home address. Patient to call to schedule an appointment. Processed Referral: [facility] y WPtel: [address] [place], [place] [id number] Patient notified that it has been advised that she be seen by Neurology. Patient agreed to be seen and prefers to be seen by a provider in the [place], [place] area. Patient denies any concerns with transportation, and prefers to schedule her own appointment. Housing Director placed a [facility] and spoke with Neeraj P: who confirmed that their office is able to accept new patients and the patient's insurance. After confirming the providers fax number, marketing copywriter faxed over the patient's referral, and [...]
--- OUTSIDE RECORDS SUMMARY | 2023-12-07 02:14 | XMS_ITS | CCD ---
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 Home Care Provider Name Role Phone Palomo AUTISM SPECIALIST, Anna Primary Care Provider Unav ailable Unavailable Chronic Care Management Unavaila ble Summary Purpose DataExchange Insurance Providers Payer name Policy type / Coverage type Covered constitution party ID Effective Begin Date Effective End Date SUKI MAYO [id number] Unknown Unknown Family history Mother Diagnosis Age [...] Unknown Disability 05/31/[address]: 453205444 Has never s moked or chewed tobacco 05/31/[address]: 534649062 Never drinks alco hol 05/31/2018 Has the [...] use ICD-10: Z01.89 ICD-9: V72.85 01/01/2020 Active [place] [facility] ICD-10: H10.029 ICD-9: 372.03 12/29/2019 Active [...] UXZ.01 ICD-9: XZ0.1 04/27/2019 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 ICD-10: Z79.899 [...] Headache ICD-10: R51 ICD-9: 784.0 10/03/2018 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 non-steroidal anti-inflammatories (NSAID) ICD-10: Z79.1 ICD-9: V58.64 06/13/2018 Active Medications Medication Codes Instructions Start Date Stop Date Status Fill Instructions atorvastatin 40 mg tablet RxNorm: 008162 1 Tablet(s) Oral every day 12/06/19 21 2020 Inactive omeprazole 20 mg capsule,delayed release RxNorm: 952023 1 Capsule(s) Oral every evening 11/24/19 21 2020 Inactive famotidine 10 mg tablet RxNorm: 339180 1 Tablet(s) Oral every morning 11/24/19 21 2020 Inactive Alcohol Prep Pads RxNorm: 677596 USE EACH MORNING 10/14/19 21 2020 Inactive omeprazole 20 mg capsule,delayed release RxNorm: 667626 1 Capsule(s) Oral two times a day 10/13/19 21 2021 Inactive omeprazole 20 mg capsule,delayed release RxNorm: 840278 TAKE 1 CAPSULE BY MOUTH EVERY DAY 10/08/19 21 2021 Inactive Macrobid 100 mg capsule RxNorm: 987251 1 Capsule(s) Oral every 12 hours with food 10/01/20 20 2020 Inactive omeprazole 20 mg capsule,delayed release RxNorm: 639304 1 Capsule(s) Oral two times a day 09/24/20 20 2021 Inactive metformin 1,000 mg tablet RxNorm: 378049 1 Tablet(s) Oral two times a day 08/19/20 20 2020 Inactive start on September 11, 2020 metformin 500 mg tablet RxNorm: 189689 1 Tablet(s) Oral two times a day take with 500mg to equal 1000mg 08/19/20 20 2019 Inactive gabapentin 300 mg capsule RxNorm: 636441 TAKE 1 CAPSULE BY MOUTH THREE TIMES DAILY 07/11/20 20 2020 Inactive cetirizine 10 mg tablet RxNorm: 4287918 TAKE (1) TABLET BY MOUTH DAILY 07/11/20 20 2020 Inactive metformin 500 mg tablet RxNorm: 729436 1 Tablet(s) Oral two times a day 07/08/20 20 2019 Inactive loperamide 2 mg tablet RxNorm: 142929 1 Tablet(s) Oral as needed take one tablet after each loose stool, maximum of 8 tablets in 24 hours 06/24/20 20 2021 Inactive Sudafed 12 Hour 120 mg tablet,extended release RxNorm: 1235669 TAKE 1 TABLET BY MOUTH EVERY 12 HOURS NEEDED 06/11/20 20 2019 Inactive hydrochlorothiazide 25 mg tablet RxNorm: 722094 TAKE (1) TABLET BY MOUTH EVERY DAY 06/11/20 20 2019 Inactive omeprazole 20 mg capsule,delayed release RxNorm: 430083 TAKE 1 CAPSULE BY MOUTH EVERY DAY 05/14/202020 Inactive metformin 500 mg tablet RxNorm: 290618 1 Tablet(s) Oral every day 05/12/20 20 2019 Inactive True Metrix Glucose Test Strip RxNorm: 1 Test Strips Miscellaneous two times a day as needed 04/17/20 No Stop Date Active metformin 500 mg tablet RxNorm: 766735 1 Tablet(s) Oral every day 04/17/20 20 2019 Inactive diclofenac sodium 75 mg tablet,delayed release RxNorm: 726938 1 Tablet(s) PO BID 04/14/20 20 2021 Inactive This refill negates all other refills of this medication Sudafed 12 Hour 120 mg tablet,extended release RxNorm: 9921248 TAKE 1 TABLET BY MOUTH EVERY 12 HOURS NEEDED 03/14/20 20 2019 Inactive True Metrix Glucose Test Strip RxNorm: 1 Test Strips Miscellaneous every morning 03/13/20 20 2019 Inactive 100/container True Metrix Glucose Test Strip RxNorm: 1 Test Strips Miscellaneous QAM 02/22/20 20 2019 Inactive 100/container loperamide 2 mg tablet RxNorm: 243706 1 Tablet(s) Oral as needed take one tablet after each loose stool, maximum of 8 tablets in 24 hours 02/22/20 20 2019 Inactive levothyroxine 50 mcg tablet RxNorm: 495427 1 Tablet(s) PO daily 01/17/20 20 2020 Inactive cetirizine 10 mg tablet RxNorm: 2606089 1 Tablet(s) PO daily 01/17/20 20 2019 Inactive loperamide 2 mg tablet RxNorm: 988456 1 Tablet(s) Oral as needed take one tablet after each loose stool, maximum of 8 tablets in 24 hours 01/17/20 20 2019 Inactive quetiapine 100 mg tablet RxNorm: 471574 1 Tablet(s) Oral every night at bedtime 01/17/20 20 2019 Inactive gabapentin 300 mg capsule RxNorm: 624016 1 Capsule(s) PO TID 01/17/20 20 2019 Inactive lisinopril 2.5 mg tablet RxNorm: 107425 1 Tablet(s) PO daily 01/15/20 20 2020 Inactive Singulair 10 mg tablet RxNorm: 678501 1 Tablet(s) PO daily 01/15/20 20 2020 Inactive levothyroxine 50 mcg tablet RxNorm: 798993 1 Tablet(s) PO daily 01/15/20 20 2019 Inactive gabapentin 300 mg capsule RxNorm: 177915 1 Capsule(s) PO TID 01/15/20 20 2019 Inactive cetirizine 10 mg tablet RxNorm: 0252722 1 Tablet(s) PO daily 01/15/20 20 2019 Inactive gentamicin 0.3 % eye drops RxNorm: 798559 1 Drop(s) ophthalmic (eye) four times a day 12/29/19 20 2019 Inactive gentamicin 0.3 % eye drops RxNorm: 251362 1 Drop(s) ophthalmic (eye) four times a day 12/29/19 20 2019 Inactive gentamicin 0.3 % eye drops RxNorm: 799486 1 Drop(s) ophthalmic (eye) four times a day 12/29/19 20 2019 Inactive hydrochlorothiazide 25 mg tablet RxNorm: 452208 1 Tablet(s) Oral every day 12/21/19 20 2019 Inactive Sudafed 12 Hour 120 mg tablet,extended release RxNorm: 6805051 TAKE (1) TABLET BY MOUTH EVERY 12 HOURS NEEDED 12/21/19 20 2019 Inactive loperamide 2 mg tablet RxNorm: 755708 1 Tablet(s) Oral as needed take one tablet after each loose stool, maximum of 8 tablets in 24 hours 12/11/19 20 2019 Inactive loperamide 2 mg tablet RxNorm: 135881 1 Tablet(s) Oral as needed take one tablet after each loose stool, maximum of 8 tablets in 24 hours 12/11/19 20 2019 Inactive atorvastatin 40 mg tablet RxNorm: 678318 1 Tablet(s) Oral every day 11/29/19 20 2020 Inactive quetiapine 100 mg tablet RxNorm: 896320 1 Tablet(s) Oral every night at bedtime 11/28/19 20 2019 Inactive sertraline 100 mg tablet RxNorm: 071472 1 Tablet(s) Oral 11/28/19 20 2019 Inactive omeprazole 20 mg capsule,delayed release RxNorm: 142446 1 Capsule(s) Oral every day 11/20/19 20 2019 Inactive amoxicillin 250 mg capsule RxNorm: 154797 1 Capsule(s) Oral three times a day 11/07/19 20 2019 Inactive multivitamin with iron-mineral tablet RxNorm: 1 Tablet(s) Oral every day 10/29/19 20 2021 Inactive cetirizine 10 mg tablet RxNorm: 3138588 1 Tablet(s) PO daily 10/20/19 2019 Inactive This refill negates all other refills of this medication. Please do not auto refill Singulair 10 mg tablet RxNorm: 382385 1 Tablet(s) PO daily 10/20/192019 Inactive This refill negates all other refills of this medication gabapentin 300 mg capsule RxNorm: 275374 1 Capsule(s) PO TID 10/20/192019 Inactive lisinopril 2.5 mg tablet RxNorm: 007218 1 Tablet(s) PO daily 10/20/192019 Inactive levothyroxine 50 mcg tablet RxNorm: 178238 1 Tablet(s) PO daily 10/20/192019 Inactive This refill negates all other refills of this medication fenugreek seed extract 500 mg capsule RxNorm: 1 Capsule(s) Oral three times a day 10/17/19 20 2021 Inactive hydrochlorothiazide 25 mg tablet RxNorm: 414312 1 Tablet(s) Oral every day 10/17/192019 Inactive Alcohol Prep Pads RxNorm: 133684 1 Patch TOP QAM 10/16/19 20 2020 Inactive loperamide 2 mg tablet RxNorm: 248378 1 Tablet(s) Oral as needed take one [...] 09/19/202019 Inactive hydrochlorothiazide 25 mg tablet RxNorm: 699598 1 Tablet(s) Oral every day 09/19/202019 Inactive Sudafed 12 Hour 120 mg tablet,extended release RxNorm: 9979224 1 Tablet(s) Oral every 12 hours as needed 09/11/20 19 2018 Inactive omeprazole 20 mg capsule,delayed release RxNorm: 124923 1 Capsule(s) Oral every day 09/07/20 19 2019 Inactive Sudafed 12 Hour 120 mg tablet,extended release RxNorm: 1405612 1 Tablet(s) Oral every 12 hours as needed 09/04/20 19 2018 Inactive pantoprazole 40 mg tablet,delayed release RxNorm: 268172 1 Tablet(s) Oral every day 08/24/20 19 2018 Inactive discontinue any other H2Blkr. and PPI albuterol sulfate 2.5 mg/3 mL (0.083 %) solution for nebulization RxNorm: 838253 1 Vial Inhalation every four hours as needed as needed for dyspnea 08/17/20 19 2019 Inactive 60/box. This refill negates all other refills of this medication. Please do not fill early. Please do not auto refill. Symbicort 160 mcg-4.5 mcg/actuation HFA aerosol inhaler RxNorm: 2792859 2 Puff(s) INH BID 08/17/20 19 No Stop Date Active Alcohol Prep Pads RxNorm: 371388 1 Patch TOP QAM 08/17/20 19 2019 Inactive Ventolin HFA 90 mcg/actuation aerosol inhaler RxNorm: 803645 2 Puff(s) INH QID 08/09/20 19 2019 Inactive Please do not fill early. Please do not auto refill. This refill negates all other refills of this medication True Metrix Glucose Test Strip RxNorm: 1 Test Strips Miscellaneous QAM 08/09/20 19 2019 Inactive 100/container atorvastatin 40 mg tablet RxNorm: 478613 1 Tablet(s) Oral every day 07/04/20 19 2019 Inactive levmetamfetamine 50 mg nasal inhaler RxNorm: 1 Unit(s) NASAL Q3-4H Do not use more than every 3 hours or 8 times/24hours 06/26/20 19 2021 Inactive Please do not auto refill. This refill negates all other refills of this medication buspirone 7.5 mg tablet RxNorm: 081812 1 Tablet(s) PO BID 06/26/20 19 2020 Inactive This refill negates all other refills of this medication hydrochlorothiazide 12.5 mg tablet RxNorm: 530536 1 Tablet(s) PO QAM 06/26/20 19 2019 Inactive Ventolin HFA 90 mcg/actuation aerosol inhaler RxNorm: 620351 2 Puff(s) INH QID 06/26/20 19 2018 Inactive Please do not fill early. Please do not auto refill. This refill negates all other refills of this medication Singulair 10 mg tablet RxNorm: 178359 1 Tablet(s) PO daily 06/26/20 19 2019 Inactive This refill negates all other refills of this medication cetirizine 10 mg tablet RxNorm: 1789243 1 Tablet(s) PO daily 06/26/20 19 2019 Inactive This refill negates all other refills of this medication. Please do not auto refill levothyroxine 50 mcg tablet RxNorm: 249510 1 Tablet(s) PO daily 06/26/20 19 2019 Inactive This refill negates all other refills of this medication diclofenac sodium 75 mg tablet,delayed release RxNorm: 437544 1 Tablet(s) PO BID 06/26/20 19 2019 Inactive This refill negates all other refills of this medication ranitidine 150 mg tablet RxNorm: 269876 1 Tablet(s) PO BID 06/26/20 19 2018 Inactive This refill negates all other refills of this medication Calcium 600-D3 Plus (mag-zinc) 600 mg calcium-800 unit-50 mg tablet RxNorm: 1 Tablet(s) PO daily take an additonal tablet for itching. 06/26/20 19 2018 Inactive This refill negates all other refills of this medication albuterol sulfate 2.5 mg/3 mL (0.083 %) solution for nebulization RxNorm: 043447 1 Vial INH QID 06/26/20 19 2018 Inactive 60/box. This refill negates all other refills of this medication. Please do not fill early. Please do not auto refill. lisinopril 2.5 mg tablet RxNorm: 025447 1 Tablet(s) PO daily 06/21/20 19 2019 Inactive gabapentin 300 mg capsule RxNorm: 016577 1 Capsule(s) PO TID 06/21/20 19 2019 Inactive atorvastatin 20 mg tablet RxNorm: 166734 1 Tablet(s) PO QHS 06/07/202018 Inactive This refill negates all other refills of this medication TRUEplus Lancets 30 gauge RxNorm: 1 Lancets Miscellaneous QAM 05/29/20 19 2018 Inactive 100/box gabapentin 300 mg capsule RxNorm: 260306 1 Capsule(s) PO TID 05/03/20 19 2018 Inactive Flintstones Complete (iron) 18 mg iron chewable tablet RxNorm: 1 Tablet(s) PO daily 04/04/202021 Inactive This refill negates all other refills of this medication gabapentin 300 mg capsule RxNorm: 801789 1 Capsule(s) PO TID as needed 02/01/20 19 2018 Inactive True Metrix Glucose Test Strip RxNorm: 1 Test Strips Miscellaneous QA 02/01/20 19 2018 Inactive 100/container Alcohol Prep Pads RxNorm: 267942 1 Patch TOP QA 02/01/20 19 2018 Inactive TRUEplus Lancets 30 gauge RxNorm: 1 Lancets Miscellaneous QA 02/01/202018 Inactive 100/box lisinopril 2.5 mg tablet RxNorm: 972453 1 Tablet(s) PO daily 12/28/19 19 2018 Inactive ranitidine 150 mg tablet RxNorm: 773074 1 Tablet(s) PO BID 10/21/192018 Inactive This refill negates all other refills of this medication albuterol sulfate 2.5 mg/3 mL (0.083 %) solution for nebulization RxNorm: 110946 1 Vial INH QID 10/21/192018 Inactive 60/box. [...] this medication gabapentin 300 mg capsule RxNorm: 709295 1 Capsule(s) PO TID as needed 10/21/19 19 2018 Inactive atorvastatin 20 mg tablet RxNorm: 431237 1 Tablet(s) PO QHS 10/21/192018 Inactive This refill negates all other refills of this medication trazodone 50 mg tablet RxNorm: 758645 1 Tablet(s) PO QHS 10/21/192018 Inactive This refill negates all other refills of this medication Ventolin HFA 90 mcg/actuation aerosol inhaler RxNorm: 139286 2 Puff(s) INH QID 10/21/192018 Inactive Please do not fill early. Please do not auto refill. This refill negates all other refills of this medication Calcium 600-D3 Plus 600 mg calcium-800 unit-50 mg tablet RxNorm: 1 Tablet(s) PO daily take an additonal tablet for itching. 10/21/192018 Inactive This refill negates all other refills of this medication Singulair 10 mg tablet RxNorm: 989026 1 Tablet(s) PO daily 10/21/192018 Inactive This refill negates all other refills of this medication buspirone 7.5 mg tablet RxNorm: 880362 1 Tablet(s) PO BID 10/21/192018 Inactive This refill negates all other refills of this medication diclofenac sodium 75 mg tablet,delayed release RxNorm: 678325 1 Tablet(s) PO BID 10/21/19 19 2018 Inactive This refill negates all other refills of this medication hydrochlorothiazide 12.5 mg tablet RxNorm: 663276 1 Tablet(s) PO QAM 10/21/1917/ 2019 Inactive metoprolol succinate ER 50 mg tablet,extended release 24 hr RxNorm: 623947 1 Tablet(s) PO daily 10/21/19 19 2018 Inactive This refill negates all other refills of this medication levothyroxine 50 mcg tablet RxNorm: 767753 1 Tablet(s) PO daily 10/21/19 19 2018 Inactive This refill negates all other refills of this medication cetirizine 10 mg tablet RxNorm: 0545904 1 Tablet(s) PO daily 10/21/192018 Inactive This refill negates all other refills of this medication. Please do not auto refill Flintstones Complete (iron) 18 mg iron chewable tablet RxNorm: 1 Tablet(s) PO daily 10/21/192018 Inactive This refill negates all other refills of this medication buspirone 7.5 mg tablet RxNorm: 247211 1 Tablet(s) PO BID 10/12/192018 Inactive cetirizine 10 mg tablet RxNorm: 0396851 1 Tablet(s) PO daily 09/28/20 18 2018 Inactive Guaiasorb DM 10 mg-100 mg/5 mL oral liquid RxNorm: 920220 10 Milliliter(s) PO As needed every 4 hr 09/24/20 18 2018 Inactive Vicks Vaporub 4.7 %-1.2 %-2.6 % topical ointment RxNorm: 3821382 1 Application TOP TID 09/24/20 18 2018 Inactive levmetamfetamine 50 mg nasal inhaler RxNorm: 1 Unit(s) NASAL Q3-4H 09/24/20 18 2017 Inactive sertraline 50 mg tablet RxNorm: 936340 1 Tablet(s) PO daily 09/09/20 18 2018 Inactive Please note dose trazodone 50 mg tablet RxNorm: 206514 1 Tablet(s) PO QHS 09/06/20 18 2018 Inactive sertraline 50 mg tablet RxNorm: 200182 1 Tablet(s) PO daily 09/06/20 18 2017 Inactive amoxicillin 500 mg tablet RxNorm: 345680 1 Tablet(s) PO Q12H 08/31/20 18 2017 Inactive albuterol sulfate 2.5 mg/3 mL (0.083 %) solution for nebulization RxNorm: 805607 1 Vial INH QID 08/10/20 18 2018 Inactive 60/box. Please do not fill early. Please do not auto refill. Prozac 10 mg capsule RxNorm: 084691 1 Capsule(s) PO daily 08/09/20 18 2017 Inactive buspirone 7.5 mg tablet RxNorm: 252406 1 Tablet(s) PO BID 08/09/20 18 2018 Inactive gabapentin 300 mg capsule RxNorm: 565840 1 Capsule(s) PO TID as needed 08/01/20 18 2018 Inactive hydrochlorothiazide 12.5 mg tablet RxNorm: 948562 1 Tablet(s) PO QAM 08/01/20 18 2018 Inactive ranitidine 150 mg tablet RxNorm: 960588 1 Tablet(s) PO BID 08/01/20 18 2018 Inactive Macrobid 100 mg capsule RxNorm: 474402 1 Capsule(s) PO Q12H 06/21/20 18 2017 Inactive Singulair 10 mg tablet RxNorm: 923364 1 Tablet(s) PO daily 06/14/20 18 2018 Inactive Ventolin HFA 90 mcg/actuation aerosol inhaler RxNorm: 2904529 2 Puff(s) INH QID 06/14/20 18 2018 Inactive Singulair 10 mg tablet RxNorm: 456746 1 Tablet(s) PO daily 06/14/20 18 2017 Inactive buspirone 7.5 mg tablet RxNorm: 044179 1 Tablet(s) PO BID 06/14/20 18 2017 Inactive Prozac 10 mg capsule RxNorm: 789399 1 Capsule(s) PO daily 06/14/20 18 2017 Inactive Neilmed Pediatric Sinus Rinse Refill packet RxNorm: 1 Unit Dose NASAL PRN 05/31/20 18 2021 Inactive diclofenac sodium 75 mg tablet,delayed release RxNorm: 053071 1 Tablet(s) PO BID 05/31/20 18 2017 Inactive lisinopril 2.5 mg tablet RxNorm: 889406 1 Tablet(s) PO daily 05/31/20 18 2017 Inactive metoprolol succinate ER 50 mg tablet,extended release 24 hr RxNorm: 777957 1 Tablet(s) PO daily 05/31/20 18 2017 Inactive levothyroxine 50 mcg tablet RxNorm: 192407 1 Tablet(s) PO daily 05/31/20 18 2017 Inactive TRUEplus Lancets 30 gauge RxNorm: 1 Lancets Miscellaneous QAM 05/31/20 18 2017 Inactive 100/box Ventolin HFA 90 mcg/actuation aerosol inhaler RxNorm: 226098 2 Puff(s) INH QID 05/31/20 18 2017 Inactive Aleve 220 mg capsule RxNorm: 2842364 1 Capsule(s) PO BID 05/31/20 18 2018 Inactive ranitidine 150 mg tablet RxNorm: 990929 1 Tablet(s) PO BID 05/31/20 18 2017 Inactive gabapentin 300 mg capsule RxNorm: 686687 1 Capsule(s) PO TID as needed 05/31/20 18 2017 Inactive atorvastatin 20 mg tablet RxNorm: 878712 1 Tablet(s) PO QHS 05/31/20 18 2017 Inactive True Metrix Glucose Test Strip RxNorm: 1 Test Strips Miscellaneous QAM 05/31/20 18 2017 Inactive 50/container Calcium 600-D3 Plus 600 mg calcium-800 unit-50 mg tablet RxNorm: 1 Tablet(s) PO daily take an additonal tablet for itching. 05/31/20 18 2017 Inactive hydrochlorothiazide 12.5 mg tablet RxNorm: 072897 1 Tablet(s) PO QAM 05/31/20 18 2017 Inactive Flintstones Complete (iron) 18 mg iron chewable tablet RxNorm: 1 Tablet(s) PO daily 05/31/20 18 2017 Inactive d-mannose oral powder RxNorm: PO 18 2021 Inactive True Metrix Glucose Meter RxNorm: miscellaneous 08/17/20 19 2018 Inactive sertraline 50 mg tablet RxNorm: 115038 1 Tablet(s) PO daily 11/28/19 20 2019 Inactive loperamide 2 mg tablet RxNorm: 965186 oral 09/29/20 19 2018 Inactive Symbicort 160 mcg-4.5 mcg/actuation HFA aerosol inhaler RxNorm: 7558361 2 Puff(s) INH BID 08/17/202018 Inactive Medication Administered No Medication Administered data Procedures Procedure Codes Date Urinalysis, dip stick CPT-4: 54018 09/24/2020 Patient Health Questionnaire CPT-4: DPHQ Electrocardiogram CPT-4: 77295 05/14/2020 Tobacco Assessment/Screening CPT-4: TCA Fall Risk Assessment SNOMED CT: 73579494 4 CPT-4: DFRA 01/01/2020 Functional Assessment CPT-4: DFA 01/01/2020 Ferr[place] Fany Assessment CPT-4: DSWA 11/04 Patient Health Questionnaire CPT-4: DPHQ [place]is Fany Assessment CPT-4: DSWA 10/03 Hypertension CPT-4: HTN 10/17/2019 Fall Risk Assessment SNOMED CT: 53132005 4 CPT-4: DFRA 09/19/2019 Functional Assessment CPT-4: DFA 09/19/2019 Urinalysis, dip stick CPT-4: 06591 06/21/2019 Tobacco Assessment/Screening CPT-4: TCA Patient Health Questionnaire CPT-4: DPHQ AHA/REBECCA Classification Assessment CPT-4: DAHA 04/25/2019 Controlled Substance Report CPT-4: CTRSU 04/03 Urinalysis, dip stick CPT-4: 91020 03/28/2019 Urinalysis, dip stick CPT-4: 81321 03/28/2019 B8Z-Dcccfrtamjmctat CPT-4: 23220 Unknown G9D-Wulupusqmimcmfx CPT-4: 61229 Unknown A2E-Lerxysjzhnrryoi CPT-4: 64829 Unknown N9E-Qoypkokgestcibj CPT-4: 89157 Unknown P6L-Rrgrvkekyofkmtz CPT-4: 30179 Unknown S2J-Ljqzulebiqspgru CPT-4: 71184 Unknown Gynecology Referral SNOMED CT: 195356776 CPT-4: R14 Unknown Reason For Visit No [...] [facility] WPtel: [address] [place] [address] [address] Family Services Specialist placed a call out to the patient to notify her that it has been recommended that she be seen by a urologist. Patient agreed to be seen, does not have a provider of choice and no transportation issues. Family Services Specialist faxed referral and clinical notes to [facility] in [place], [place] near the patient's home. [...] seen and prefers a provider in the [place] or [facility]. Family Services Specialist placed a call out to everyone listed in the area and the only location that was able to accept the patient's insurance was [place] [address] [place] [address] and spoke with Maylin. Maylin asked that the patient's referral, face sheet and visit notes be faxed to . Family Services Specialist faxed over requested documents. Patient appointment confirmation letter generated and mailed to her home address. Patient to call to schedule an appointment. Processed Referral: [facility] WPtel: [address] [place] [address] [place] [address] Patient notified that it has been advised that she be seen by Neurology. Patient agreed to be seen and prefers to be seen by a provider in the [place], [place] area. Patient denies any concerns with transportation, and prefers to schedule her own appointment. Family Services Specialist placed a call out to [facility] [...]
--- OUTSIDE RECORDS SUMMARY | 2023-12-07 02:14 | XMS_ITS | CCD ---
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 Name Role Phone Palomo KING, Anna Primary Care Provider Unav ailable Unavailable Chronic Care Management Unavaila ble Summary Purpose DataExchange Insurance Providers Payer name Policy type / Coverage type Covered republican ID Effective Begin Date Effective End Date SUKI MAYO [id number] Unknown Unknown Family history Mother Diagnosis Age [...] Unknown Disability 05/31/[address]: 009483279 Has never s moked or chewed tobacco 05/31/[address]: 242674298 Never drinks alco hol 05/31/2018 Has the [...] use ICD-10: Z01.89 ICD-9: V72.85 01/01/2020 Active [place] [facility] ICD-10: H10.029 ICD-9: 372.03 12/29/2019 Active [...] ICD-10: UXZ.01 ICD-9: XZ0.1 04/27/2019 Active 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 ICD-10: Z79.899 ICD-9: [...] ICD-10: R51 ICD-9: 784.0 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) ICD-10: Z79.1 ICD-9: V58.64 06/13/2018 Active Medications Medication Codes Instructions Start Date Stop Date Status Fill Instructions omeprazole 20 mg capsule,delayed release RxNorm: 710175 TAKE 1 CAPSULE BY MOUTH EVERY DAY 10/08/192021 Inactive Macrobid 100 mg capsule RxNorm: 511390 1 Capsule(s) Oral every 12 hours with food 10/01/202020 Inactive omeprazole 20 mg capsule,delayed release RxNorm: 433585 1 Capsule(s) Oral two times a day 09/24/202021 Inactive metformin 1,000 mg tablet RxNorm: 911970 1 Tablet(s) Oral two times a day 08/19/20 20 2020 Inactive start on September 11, 2020 metformin 500 mg tablet RxNorm: 987387 1 Tablet(s) Oral two times a day take with 500mg to equal 1000mg 08/19/20 20 2019 Inactive gabapentin 300 mg capsule RxNorm: 673297 TAKE 1 CAPSULE BY MOUTH THREE TIMES DAILY 07/11/20 20 2020 Inactive cetirizine 10 mg tablet RxNorm: 9111403 TAKE (1) TABLET BY MOUTH DAILY 07/11/20 20 2020 Inactive metformin 500 mg tablet RxNorm: 827404 1 Tablet(s) Oral two times a day 07/08/20 20 2019 Inactive loperamide 2 mg tablet RxNorm: 920325 1 Tablet(s) Oral as needed take one tablet after each loose stool, maximum of 8 tablets in 24 hours 06/24/20 20 2021 Inactive Sudafed 12 Hour 120 mg tablet,extended release RxNorm: 7829212 TAKE 1 TABLET BY MOUTH EVERY 12 HOURS NEEDED 06/11/2006/11/ 2020 Inactive hydrochlorothiazide 25 mg tablet RxNorm: 699861 TAKE (1) TABLET BY MOUTH EVERY DAY 06/11/20 20 2019 Inactive omeprazole 20 mg capsule,delayed release RxNorm: 486733 TAKE 1 CAPSULE BY MOUTH EVERY DAY 05/14/20 20 2020 Inactive metformin 500 mg tablet RxNorm: 658312 1 Tablet(s) Oral every day 05/12/20 20 2019 Inactive True Metrix Glucose Test Strip RxNorm: 1 Test Strips Miscellaneous two times a day as needed 04/17/20 No Stop Date Active metformin 500 mg tablet RxNorm: 934877 1 Tablet(s) Oral every day 04/17/20 20 2019 Inactive diclofenac sodium 75 mg tablet,delayed release RxNorm: 321951 1 Tablet(s) PO BID 04/14/20 20 2021 Inactive This refill negates all other refills of this medication Sudafed 12 Hour 120 mg tablet,extended release RxNorm: 2096464 TAKE 1 TABLET BY MOUTH EVERY 12 HOURS NEEDED 03/14/20 20 2019 Inactive True Metrix Glucose Test Strip RxNorm: 1 Test Strips Miscellaneous every morning 03/13/20 20 2019 Inactive 100/container True Metrix Glucose Test Strip RxNorm: 1 Test Strips Miscellaneous QA 02/22/20 20 2019 Inactive 100/container loperamide 2 mg tablet RxNorm: 754802 1 Tablet(s) Oral as needed take one tablet after each loose stool, maximum of 8 tablets in 24 hours 02/22/20 20 2019 Inactive levothyroxine 50 mcg tablet RxNorm: 487846 1 Tablet(s) PO daily 01/17/20 20 2020 Inactive cetirizine 10 mg tablet RxNorm: 1833471 1 Tablet(s) PO daily 01/17/20 20 2019 Inactive loperamide 2 mg tablet RxNorm: 522106 1 Tablet(s) Oral as needed take one tablet after each loose stool, maximum of 8 tablets in 24 hours 01/17/20 20 2019 Inactive quetiapine 100 mg tablet RxNorm: 434207 1 Tablet(s) Oral every night at bedtime 01/17/20 20 2019 Inactive gabapentin 300 mg capsule RxNorm: 581854 1 Capsule(s) PO TID 01/17/20 20 2019 Inactive lisinopril 2.5 mg tablet RxNorm: 521787 1 Tablet(s) PO daily 01/15/20 20 2020 Inactive Singulair 10 mg tablet RxNorm: 532043 1 Tablet(s) PO daily 01/15/20 20 2020 Inactive levothyroxine 50 mcg tablet RxNorm: 264174 1 Tablet(s) PO daily 01/15/20 20 2019 Inactive gabapentin 300 mg capsule RxNorm: 395074 1 Capsule(s) PO TID 01/15/20 20 2019 Inactive cetirizine 10 mg tablet RxNorm: 4601140 1 Tablet(s) PO daily 01/15/20 20 2019 Inactive gentamicin 0.3 % eye drops RxNorm: 666315 1 Drop(s) ophthalmic (eye) four times a day 12/29/19 20 2019 Inactive gentamicin 0.3 % eye drops RxNorm: 152565 1 Drop(s) ophthalmic (eye) four times a day 12/29/19 20 2019 Inactive gentamicin 0.3 % eye drops RxNorm: 102625 1 Drop(s) ophthalmic (eye) four times a day 12/29/19 20 2019 Inactive hydrochlorothiazide 25 mg tablet RxNorm: 120879 1 Tablet(s) Oral every day 12/21/19 20 2019 Inactive Sudafed 12 Hour 120 mg tablet,extended release RxNorm: 8046244 TAKE (1) TABLET BY MOUTH EVERY 12 HOURS NEEDED 12/21/19 20 2019 Inactive loperamide 2 mg tablet RxNorm: 177810 1 Tablet(s) Oral as needed take one tablet after each loose stool, maximum of 8 tablets in 24 hours 12/11/19 20 2019 Inactive loperamide 2 mg tablet RxNorm: 466979 1 Tablet(s) Oral as needed take one tablet after each loose stool, maximum of 8 tablets in 24 hours 12/11/192019 Inactive atorvastatin 40 mg tablet RxNorm: 207978 1 Tablet(s) Oral every day 11/29/19 20 2020 Inactive quetiapine 100 mg tablet RxNorm: 336760 1 Tablet(s) Oral every night at bedtime 11/28/19 20 2019 Inactive sertraline 100 mg tablet RxNorm: 369066 1 Tablet(s) Oral 11/28/19 20 2019 Inactive omeprazole 20 mg capsule,delayed release RxNorm: 945997 1 Capsule(s) Oral every day 11/20/19 20 2019 Inactive amoxicillin 250 mg capsule RxNorm: 683631 1 Capsule(s) Oral three times a day 11/07/192019 Inactive multivitamin with iron-mineral tablet RxNorm: 1 Tablet(s) Oral every day 10/29/192021 Inactive cetirizine 10 mg tablet RxNorm: 7456243 1 Tablet(s) PO daily 10/20/19 20 2019 Inactive This refill negates all other refills of this medication. Please do not auto refill Singulair 10 mg tablet RxNorm: 087417 1 Tablet(s) PO daily 10/20/19 20 2019 Inactive This refill negates all other refills of this medication gabapentin 300 mg capsule RxNorm: 588177 1 Capsule(s) PO TID 10/20/19 20 2019 Inactive lisinopril 2.5 mg tablet RxNorm: 335542 1 Tablet(s) PO daily 10/20/19 20 2019 Inactive levothyroxine 50 mcg tablet RxNorm: 383023 1 Tablet(s) PO daily 10/20/19 20 2019 Inactive This refill negates all other refills of this medication fenugreek seed extract 500 mg capsule RxNorm: 1 Capsule(s) Oral three times a day 10/17/19 20 2021 Inactive hydrochlorothiazide 25 mg tablet RxNorm: 395652 1 Tablet(s) Oral every day 10/17/19 20 2019 Inactive Alcohol Prep Pads RxNorm: 622967 1 Patch TOP QAM 10/16/1922 10/11/ 2021 Inactive loperamide 2 mg tablet RxNorm: 524010 1 Tablet(s) Oral as needed take one [...] 2019 Inactive hydrochlorothiazide 25 mg tablet RxNorm: 044803 1 Tablet(s) Oral every day 09/19/20 19 2019 Inactive Sudafed 12 Hour 120 mg tablet,extended release RxNorm: 5979670 1 Tablet(s) Oral every 12 hours as needed 09/11/20 19 2018 Inactive omeprazole 20 mg capsule,delayed release RxNorm: 469346 1 Capsule(s) Oral every day 09/07/20 19 2019 Inactive Sudafed 12 Hour 120 mg tablet,extended release RxNorm: 2041743 1 Tablet(s) Oral every 12 hours as needed 09/04/20 19 2018 Inactive pantoprazole 40 mg tablet,delayed release RxNorm: 849845 1 Tablet(s) Oral every day 08/24/20 19 2018 Inactive discontinue any other H2Blkr. and PPI albuterol sulfate 2.5 mg/3 mL (0.083 %) solution for nebulization RxNorm: 272877 1 Vial Inhalation every four hours as needed as needed for dyspnea 08/17/20 19 2019 Inactive 60/box. This refill negates all other refills of this medication. Please do not fill early. Please do not auto refill. Symbicort 160 mcg-4.5 mcg/actuation HFA aerosol inhaler RxNorm: 0163687 2 Puff(s) INH BID 08/17/20 19 No Stop Date Active Alcohol Prep Pads RxNorm: 401367 1 Patch TOP QAM 08/17/20 19 2019 Inactive Ventolin HFA 90 mcg/actuation aerosol inhaler RxNorm: 914732 2 Puff(s) INH QID 08/09/20 19 2019 Inactive Please do not fill early. Please do not auto refill. This refill negates all other refills of this medication True Metrix Glucose Test Strip RxNorm: 1 Test Strips Miscellaneous QAM 08/09/20 19 2019 Inactive 100/container atorvastatin 40 mg tablet RxNorm: 790231 1 Tablet(s) Oral every day 07/04/20 19 2019 Inactive levmetamfetamine 50 mg nasal inhaler RxNorm: 1 Unit(s) NASAL Q3-4H Do not use more than every 3 hours or 8 times/24hours 06/26/20 19 2021 Inactive Please do not auto refill. This refill negates all other refills of this medication buspirone 7.5 mg tablet RxNorm: 218227 1 Tablet(s) PO BID 06/26/20 19 2020 Inactive This refill negates all other refills of this medication hydrochlorothiazide 12.5 mg tablet RxNorm: 593737 1 Tablet(s) PO QAM 06/26/20 19 2019 Inactive Ventolin HFA 90 mcg/actuation aerosol inhaler RxNorm: 764049 2 Puff(s) INH QID 06/26/20 19 2018 Inactive Please do not fill early. Please do not auto refill. This refill negates all other refills of this medication Singulair 10 mg tablet RxNorm: 152509 1 Tablet(s) PO daily 06/26/20 19 2019 Inactive This refill negates all other refills of this medication cetirizine 10 mg tablet RxNorm: 7774456 1 Tablet(s) PO daily 06/26/20 19 2019 Inactive This refill negates all other refills of this medication. Please do not auto refill levothyroxine 50 mcg tablet RxNorm: 050190 1 Tablet(s) PO daily 06/26/20 19 2019 Inactive This refill negates all other refills of this medication diclofenac sodium 75 mg tablet,delayed release RxNorm: 231150 1 Tablet(s) PO BID 06/26/20 19 2019 Inactive This refill negates all other refills of this medication ranitidine 150 mg tablet RxNorm: 670616 1 Tablet(s) PO BID 06/26/20 19 2018 Inactive This refill negates all other refills of this medication Calcium 600-D3 Plus (mag-zinc) 600 mg calcium-800 unit-50 mg tablet RxNorm: 1 Tablet(s) PO daily take an additonal tablet for itching. 06/26/20 19 2018 Inactive This refill negates all other refills of this medication albuterol sulfate 2.5 mg/3 mL (0.083 %) solution for nebulization RxNorm: 313104 1 Vial INH QID 06/26/20 19 2018 Inactive 60/box. This refill negates all other refills of this medication. Please do not fill early. Please do not auto refill. lisinopril 2.5 mg tablet RxNorm: 198149 1 Tablet(s) PO daily 06/21/20 19 2019 Inactive gabapentin 300 mg capsule RxNorm: 856412 1 Capsule(s) PO TID 06/21/20 19 2019 Inactive atorvastatin 20 mg tablet RxNorm: 066168 1 Tablet(s) PO QHS 06/07/20 19 2018 Inactive This refill negates all other refills of this medication TRUEplus Lancets 30 gauge RxNorm: 1 Lancets Miscellaneous QAM 05/29/20 19 2018 Inactive 100/box gabapentin 300 mg capsule RxNorm: 615128 1 Capsule(s) PO TID 05/03/20 19 2018 Inactive Flintstones Complete (iron) 18 mg iron chewable tablet RxNorm: 1 Tablet(s) PO daily 04/04/20 19 2021 Inactive This refill negates all other refills of this medication gabapentin 300 mg capsule RxNorm: 173168 1 Capsule(s) PO TID as needed 02/01/20 19 2018 Inactive True Metrix Glucose Test Strip RxNorm: 1 Test Strips Miscellaneous QA 02/01/20 19 2018 Inactive 100/container Alcohol Prep Pads RxNorm: 800435 1 Patch TOP QA 02/01/202018 Inactive TRUEplus Lancets 30 gauge RxNorm: 1 Lancets Miscellaneous QA 02/01/20 19 2018 Inactive 100/box lisinopril 2.5 mg tablet RxNorm: 005714 1 Tablet(s) PO daily 12/28/19 19 2018 Inactive ranitidine 150 mg tablet RxNorm: 278508 1 Tablet(s) PO BID 10/21/192018 Inactive This refill negates all other refills of this medication albuterol sulfate 2.5 mg/3 mL (0.083 %) solution for nebulization RxNorm: 801790 1 Vial INH QID 10/21/192018 Inactive 60/box. [...] this medication gabapentin 300 mg capsule RxNorm: 496805 1 Capsule(s) PO TID as needed 10/21/192018 Inactive atorvastatin 20 mg tablet RxNorm: 059815 1 Tablet(s) PO QHS 10/21/19 19 2018 Inactive This refill negates all other refills of this medication trazodone 50 mg tablet RxNorm: 447704 1 Tablet(s) PO QHS 10/21/19 19 2018 Inactive This refill negates all other refills of this medication Ventolin HFA 90 mcg/actuation aerosol inhaler RxNorm: 696034 2 Puff(s) INH QID 10/21/19 19 2018 [...] this medication Singulair 10 mg tablet RxNorm: 670184 1 Tablet(s) PO daily 10/21/192018 Inactive This refill negates all other refills of this medication buspirone 7.5 mg tablet RxNorm: 126595 1 Tablet(s) PO BID 10/21/19 19 2018 Inactive This refill negates all other refills of this medication diclofenac sodium 75 mg tablet,delayed release RxNorm: 365711 1 Tablet(s) PO BID 10/21/19 19 2018 Inactive This refill negates all other refills of this medication hydrochlorothiazide 12.5 mg tablet RxNorm: 787253 1 Tablet(s) PO QAM 10/21/19 19 2018 Inactive metoprolol succinate ER 50 mg tablet,extended release 24 hr RxNorm: 831234 1 Tablet(s) PO daily 10/21/192018 Inactive This refill negates all other refills of this medication levothyroxine 50 mcg tablet RxNorm: 282183 1 Tablet(s) PO daily 10/21/192018 Inactive This refill negates all other refills of this medication cetirizine 10 mg tablet RxNorm: 4846992 1 Tablet(s) PO daily 10/21/192018 Inactive This refill negates all other refills of this medication. Please do not auto refill Flintstones Complete (iron) 18 mg iron chewable tablet RxNorm: 1 Tablet(s) PO daily 10/21/192018 Inactive This refill negates all other refills of this medication buspirone 7.5 mg tablet RxNorm: 235087 1 Tablet(s) PO BID 10/12/19 19 2018 Inactive cetirizine 10 mg tablet RxNorm: 7241641 1 Tablet(s) PO daily 09/28/20 18 2018 Inactive Guaiasorb DM 10 mg-100 mg/5 mL oral liquid RxNorm: 160497 10 Milliliter(s) PO As needed every 4 hr 09/24/20 18 2018 Inactive Vicadenike Vaporub 4.7 %-1.2 %-2.6 % topical ointment RxNorm: 7040074 1 Application TOP TID 09/24/20 18 2018 Inactive levmetamfetamine 50 mg nasal inhaler RxNorm: 1 Unit(s) NASAL Q3-4H 09/24/20 18 2017 Inactive sertraline 50 mg tablet RxNorm: 430924 1 Tablet(s) PO daily 09/09/20 18 2018 Inactive Please note dose trazodone 50 mg tablet RxNorm: 504931 1 Tablet(s) PO QHS 09/06/20 18 2018 Inactive sertraline 50 mg tablet RxNorm: 076338 1 Tablet(s) PO daily 09/06/20 18 2017 Inactive amoxicillin 500 mg tablet RxNorm: 490905 1 Tablet(s) PO Q12H 08/31/20 18 2017 Inactive albuterol sulfate 2.5 mg/3 mL (0.083 %) solution for nebulization RxNorm: 310440 1 Vial INH QID 08/10/20 18 2018 Inactive 60/box. Please do not fill early. Please do not auto refill. Prozac 10 mg capsule RxNorm: 090252 1 Capsule(s) PO daily 08/09/20 18 2017 Inactive buspirone 7.5 mg tablet RxNorm: 666331 1 Tablet(s) PO BID 08/09/20 18 2018 Inactive gabapentin 300 mg capsule RxNorm: 584461 1 Capsule(s) PO TID as needed 08/01/20 18 2018 Inactive hydrochlorothiazide 12.5 mg tablet RxNorm: 446584 1 Tablet(s) PO QAM 08/01/20 18 2018 Inactive ranitidine 150 mg tablet RxNorm: 900478 1 Tablet(s) PO BID 08/01/20 18 2018 Inactive Macrobid 100 mg capsule RxNorm: 962734 1 Capsule(s) PO Q12H 06/21/20 18 2017 Inactive Singulair 10 mg tablet RxNorm: 807326 1 Tablet(s) PO daily 06/14/20 18 2018 Inactive Ventolin HFA 90 mcg/actuation aerosol inhaler RxNorm: 0462416 2 Puff(s) INH QID 06/14/20 18 2018 Inactive Singulair 10 mg tablet RxNorm: 986253 1 Tablet(s) PO daily 06/14/20 18 2017 Inactive buspirone 7.5 mg tablet RxNorm: 588331 1 Tablet(s) PO BID 06/14/20 18 2017 Inactive Prozac 10 mg capsule RxNorm: 348437 1 Capsule(s) PO daily 06/14/20 18 2017 Inactive Neilmed Pediatric Sinus Rinse Refill packet RxNorm: 1 Unit Dose NASAL PRN 05/31/20 18 2021 Inactive diclofenac sodium 75 mg tablet,delayed release RxNorm: 189022 1 Tablet(s) PO BID 05/31/20 18 2017 Inactive lisinopril 2.5 mg tablet RxNorm: 159479 1 Tablet(s) PO daily 05/31/20 18 2017 Inactive metoprolol succinate ER 50 mg tablet,extended release 24 hr RxNorm: 080401 1 Tablet(s) PO daily 05/31/20 18 2017 Inactive levothyroxine 50 mcg tablet RxNorm: 756169 1 Tablet(s) PO daily 05/31/20 18 2017 Inactive TRUEplus Lancets 30 gauge RxNorm: 1 Lancets Miscellaneous QAM 05/31/20 18 2017 Inactive 100/box Ventolin HFA 90 mcg/actuation aerosol inhaler RxNorm: 767177 2 Puff(s) INH QID 05/31/20 18 2017 Inactive Aleve 220 mg capsule RxNorm: 3533174 1 Capsule(s) PO BID 05/31/20 18 2018 Inactive ranitidine 150 mg tablet RxNorm: 292764 1 Tablet(s) PO BID 05/31/20 18 2017 Inactive gabapentin 300 mg capsule RxNorm: 515904 1 Capsule(s) PO TID as needed 05/31/20 18 2017 Inactive atorvastatin 20 mg tablet RxNorm: 273108 1 Tablet(s) PO QHS 05/31/20 18 2017 Inactive True Metrix Glucose Test Strip RxNorm: 1 Test Strips Miscellaneous [facility] 05/31/20 18 2017 Inactive 50/container Calcium 600-D3 Plus 600 mg calcium-800 unit-50 mg tablet RxNorm: 1 Tablet(s) PO daily take an additonal tablet for itching. 05/31/20 18 2017 Inactive hydrochlorothiazide 12.5 mg tablet RxNorm: 211444 1 Tablet(s) PO QAM 05/31/20 18 2017 Inactive Flintstones Complete (iron) 18 mg iron chewable tablet RxNorm: 1 Tablet(s) PO daily 05/31/20 18 2017 Inactive d-mannose oral powder RxNorm: PO 18 2021 Inactive True Metrix Glucose Meter RxNorm: miscellaneous 08/17/20 19 2018 Inactive sertraline 50 mg tablet RxNorm: 284677 1 Tablet(s) PO daily 11/28/19 20 2019 Inactive loperamide 2 mg tablet RxNorm: 064768 oral 09/29/20 19 2018 Inactive Symbicort 160 mcg-4.5 mcg/actuation HFA aerosol inhaler RxNorm: 1214271 2 Puff(s) INH BID 08/17/20 19 2018 Inactive Medication Administered No Medication Administered data Procedures Procedure Codes Date Urinalysis, dip stick CPT-4: 19799 09/24/2020 Patient Health Questionnaire CPT-4: DPHQ Electrocardiogram CPT-4: 88300 05/14/2020 Tobacco Assessment/Screening CPT-4: TCA Fall Risk Assessment SNOMED CT: 39066290 4 CPT-4: DFRA 01/01/2020 Functional Assessment CPT-4: DFA 01/01/2020 [place] Fany Assessment CPT-4: DSWA 11/04 Patient Health Questionnaire CPT-4: DPHQ [place] Fany Assessment CPT-4: DSWA 10/03 Hypertension CPT-4: HTN 10/17/2019 Fall Risk Assessment SNOMED CT: 43628438 4 CPT-4: DFRA 09/19/2019 Functional Assessment CPT-4: DFA 09/19/2019 Urinalysis, dip stick CPT-4: 31681 06/21/2019 Tobacco Assessment/Screening CPT-4: TCA Patient Health Questionnaire CPT-4: DPHQ AHA/REBECCA Classification Assessment CPT-4: DAHA 04/25/2019 Controlled Substance Report CPT-4: CTRSU 04/03 Urinalysis, dip stick CPT-4: 88933 03/28/2019 Urinalysis, dip stick CPT-4: 63551 03/28/2019 F5M-Jtrzlsnsrkgddoo CPT-4: 18442 Unknown I1H-Pitjpzftnwtwmli CPT-4: 15168 Unknown Q5A-Acmraqaioafxocx CPT-4: 83698 Unknown Y0F-Ixhmamrhectgwbh CPT-4: 69372 Unknown V9J-Bdriohdtriephwl CPT-4: 47544 Unknown Gynecology Referral SNOMED CT: 447464106 CPT-4: R14 Unknown Reason For Visit No Reason For Visit data Plan of Care Planned Activity Notes Codes Status Date Referral: Pending Gynecology Referral Information Referral Processed Referral: Pending Pulmonolog y Referral Information Referral Processed Referral: Pending Psychiatry Referral Information Referral Initiated Referral: Pending Respirator y Services Referral Information Referral Initiated Referral: Pending Ophthalmol ogy Referral Information Referral Initiated Referral: [facility] WPtel: [address] [facility] [address] [place] [address] [place] [employer] placed a call out to the patient to notify her that it has been recommended that she be seen by a urologist. Patient agreed to be seen, does not have a provider of choice and no transportation issues. [employer] faxed referral and clinical notes to [facility] in [place], [place] near the patient's home. Patient to [...] seen and prefers a provider in the [place] or [place] area. [employer] placed a call out to everyone listed in the area and the only location that was able to accept the patient's insurance was [place] [address] [place] [phone] and spoke with Maylin. Maylin asked that the patient's referral, face sheet and visit notes be faxed to . [employer] faxed over requested documents. Patient appointment confirmation letter generated and mailed to her home address. Patient to call to schedule an appointment. Process[facility] W[facility]el: [address] [place], [place] [id number] Patient notified that it has been advised that she be seen by Neurology. Patient agreed to be seen and prefers to be seen by a provider in the [place], [place] area. Patient denies any concerns with transportation, and prefers to schedule her own appointment. [employer] [facility] [...]
--- OUTSIDE RECORDS SUMMARY | 2023-12-07 02:14 | XMS_ITS | CCD ---
Author Name Leena Culver NP Address [address] [place] [address] [place] [address] Phone Organization [facility] Phone Care Team Providers Care Senior Director Insight Name Role Phone Anna Culver NP Primary Care Provider Unav ailable Unavailable Chronic Care Management Unavaila ble Summary Purpose DataExchange Insurance Providers Payer name Policy type / Coverage type Covered republican ID Effective Begin Date Effective End Date SUKI MAYO [id number] Unknown Unknown Family history Mother Diagnosis Age [...] Unknown Disability 05/31/[address]: 593749464 Has never s moked or chewed tobacco 05/31/[address]: 952994291 Never drinks alco hol 05/31/2018 Has the [...] use ICD-10: Z01.89 ICD-9: V72.85 01/01/2020 Active [place] [facility] ICD-10: H10.029 ICD-9: 372.03 12/29/2019 Active [...] XZ0.1 04/27/2019 Active Other prison (current) dr sharma therapy ICD-10: [...] ICD-10: R51 ICD-9: 784.0 10/03/2018 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 (NSAID) ICD-10: Z79.1 ICD-9: V58.64 06/13/2018 Active Medications Medication Codes Instructions Start Date Stop Date Status Fill Instructions Alcohol Prep Pads RxNorm: 055701 USE EACH MORNING 10/14/19 21 2020 Inactive omeprazole 20 mg capsule,delayed release RxNorm: 963998 1 Capsule(s) Oral two times a day 10/13/19 21 2021 Inactive omeprazole 20 mg capsule,delayed release RxNorm: 031898 TAKE 1 CAPSULE BY MOUTH EVERY DAY 10/08/19 21 2021 Inactive Macrobid 100 mg capsule RxNorm: 721774 1 Capsule(s) Oral every 12 hours with food 10/01/20 20 2020 Inactive omeprazole 20 mg capsule,delayed release RxNorm: 464440 1 Capsule(s) Oral two times a day 09/24/20 20 2021 Inactive metformin 1,000 mg tablet RxNorm: 023641 1 Tablet(s) Oral two times a day 08/19/20 20 2020 Inactive start on September 11, 2020 metformin 500 mg tablet RxNorm: 041191 1 Tablet(s) Oral two times a day take with 500mg to equal 1000mg 08/19/20 20 2019 Inactive gabapentin 300 mg capsule RxNorm: 988294 TAKE 1 CAPSULE BY MOUTH THREE TIMES DAILY 07/11/20 20 2020 Inactive cetirizine 10 mg tablet RxNorm: 9870845 TAKE (1) TABLET BY MOUTH DAILY 07/11/20 20 2020 Inactive metformin 500 mg tablet RxNorm: 929670 1 Tablet(s) Oral two times a day 07/08/20 20 2019 Inactive loperamide 2 mg tablet RxNorm: 807100 1 Tablet(s) Oral as needed take one tablet after each loose stool, maximum of 8 tablets in 24 hours 06/24/20 20 2021 Inactive Sudafed 12 Hour 120 mg tablet,extended release RxNorm: 5337391 TAKE 1 TABLET BY MOUTH EVERY 12 HOURS NEEDED 06/11/20 20 2019 Inactive hydrochlorothiazide 25 mg tablet RxNorm: 107300 TAKE (1) TABLET BY MOUTH EVERY DAY 06/11/20 20 2019 Inactive omeprazole 20 mg capsule,delayed release RxNorm: 417911 TAKE 1 CAPSULE BY MOUTH EVERY DAY 05/14/20 20 2020 Inactive metformin 500 mg tablet RxNorm: 054744 1 Tablet(s) Oral every day 05/12/20 20 2019 Inactive True Metrix Glucose Test Strip RxNorm: 1 Test Strips Miscellaneous two times a day as needed 04/17/20 No Stop Date Active metformin 500 mg tablet RxNorm: 625227 1 Tablet(s) Oral every day 04/17/20 20 2019 Inactive diclofenac sodium 75 mg tablet,delayed release RxNorm: 726129 1 Tablet(s) PO BID 04/14/20 20 2021 Inactive This refill negates all other refills of this medication Sudafed 12 Hour 120 mg tablet,extended release RxNorm: 1334742 TAKE 1 TABLET BY MOUTH EVERY 12 HOURS NEEDED 03/14/20 20 2019 Inactive True Metrix Glucose Test Strip RxNorm: 1 Test Strips Miscellaneous every morning 03/13/20 20 2019 Inactive 100/container True Metrix Glucose Test Strip RxNorm: 1 Test Strips Miscellaneous QA 02/22/20 20 2019 Inactive 100/container loperamide 2 mg tablet RxNorm: 871457 1 Tablet(s) Oral as needed take one tablet after each loose stool, maximum of 8 tablets in 24 hours 02/22/20 20 2019 Inactive levothyroxine 50 mcg tablet RxNorm: 153470 1 Tablet(s) PO daily 01/17/20 20 2020 Inactive cetirizine 10 mg tablet RxNorm: 5385456 1 Tablet(s) PO daily 01/17/20 20 2019 Inactive loperamide 2 mg tablet RxNorm: 286610 1 Tablet(s) Oral as needed take one tablet after each loose stool, maximum of 8 tablets in 24 hours 01/17/20 20 2019 Inactive quetiapine 100 mg tablet RxNorm: 847937 1 Tablet(s) Oral every night at bedtime 01/17/20 20 2019 Inactive gabapentin 300 mg capsule RxNorm: 283893 1 Capsule(s) PO TID 01/17/20 20 2019 Inactive lisinopril 2.5 mg tablet RxNorm: 452695 1 Tablet(s) PO daily 01/15/20 20 2020 Inactive Singulair 10 mg tablet RxNorm: 214036 1 Tablet(s) PO daily 01/15/20 20 2020 Inactive levothyroxine 50 mcg tablet RxNorm: 984180 1 Tablet(s) PO daily 01/15/20 20 2019 Inactive gabapentin 300 mg capsule RxNorm: 884072 1 Capsule(s) PO TID 01/15/20 20 2019 Inactive cetirizine 10 mg tablet RxNorm: 6911346 1 Tablet(s) PO daily 01/15/20 20 2019 Inactive gentamicin 0.3 % eye drops RxNorm: 487914 1 Drop(s) ophthalmic (eye) four times a day 12/29/19 20 2019 Inactive gentamicin 0.3 % eye drops RxNorm: 369696 1 Drop(s) ophthalmic (eye) four times a day 12/29/19 20 2019 Inactive gentamicin 0.3 % eye drops RxNorm: 045814 1 Drop(s) ophthalmic (eye) four times a day 12/29/19 20 2019 Inactive hydrochlorothiazide 25 mg tablet RxNorm: 686604 1 Tablet(s) Oral every day 12/21/19 20 2019 Inactive Sudafed 12 Hour 120 mg tablet,extended release RxNorm: 2213846 TAKE (1) TABLET BY MOUTH EVERY 12 HOURS NEEDED 12/21/19 20 2019 Inactive loperamide 2 mg tablet RxNorm: 016509 1 Tablet(s) Oral as needed take one tablet after each loose stool, maximum of 8 tablets in 24 hours 12/11/19 20 2019 Inactive loperamide 2 mg tablet RxNorm: 654803 1 Tablet(s) Oral as needed take one tablet after each loose stool, maximum of 8 tablets in 24 hours 12/11/19 20 2019 Inactive atorvastatin 40 mg tablet RxNorm: 402506 1 Tablet(s) Oral every day 11/29/19 20 2020 Inactive quetiapine 100 mg tablet RxNorm: 422707 1 Tablet(s) Oral every night at bedtime 11/28/19 20 2019 Inactive sertraline 100 mg tablet RxNorm: 348994 1 Tablet(s) Oral 11/28/19 20 2019 Inactive omeprazole 20 mg capsule,delayed release RxNorm: 942357 1 Capsule(s) Oral every day 11/20/19 20 2019 Inactive amoxicillin 250 mg capsule RxNorm: 080801 1 Capsule(s) Oral three times a day 11/07/19 20 2019 Inactive multivitamin with iron-mineral tablet RxNorm: 1 Tablet(s) Oral every day 10/29/19 20 2021 Inactive cetirizine 10 mg tablet RxNorm: 2818013 1 Tablet(s) PO daily 10/20/19 20 2019 Inactive This refill negates all other refills of this medication. Please do not auto refill Singulair 10 mg tablet RxNorm: 400883 1 Tablet(s) PO daily 10/20/19 20 2019 Inactive This refill negates all other refills of this medication gabapentin 300 mg capsule RxNorm: 092959 1 Capsule(s) PO TID 10/20/19 20 2019 Inactive lisinopril 2.5 mg tablet RxNorm: 284805 1 Tablet(s) PO daily 10/20/19 20 2019 Inactive levothyroxine 50 mcg tablet RxNorm: 499014 1 Tablet(s) PO daily 10/20/19 20 2019 Inactive This refill negates all other refills of this medication fenugreek seed extract 500 mg capsule RxNorm: 1 Capsule(s) Oral three times a day 10/17/19 20 2021 Inactive hydrochlorothiazide 25 mg tablet RxNorm: 195042 1 Tablet(s) Oral every day 10/17/19 20 2019 Inactive Alcohol Prep Pads RxNorm: 033732 1 Patch TOP QAM 10/16/19 20 2020 Inactive loperamide 2 mg tablet RxNorm: 955150 1 Tablet(s) Oral as needed take one [...] 2019 Inactive hydrochlorothiazide 25 mg tablet RxNorm: 085986 1 Tablet(s) Oral every day 09/19/20 19 2019 Inactive Sudafed 12 Hour 120 mg tablet,extended release RxNorm: 1484472 1 Tablet(s) Oral every 12 hours as needed 09/11/20 19 2018 Inactive omeprazole 20 mg capsule,delayed release RxNorm: 545002 1 Capsule(s) Oral every day 09/07/20 19 2019 Inactive Sudafed 12 Hour 120 mg tablet,extended release RxNorm: 8243167 1 Tablet(s) Oral every 12 hours as needed 09/04/20 19 2018 Inactive pantoprazole 40 mg tablet,delayed release RxNorm: 072271 1 Tablet(s) Oral every day 08/24/20 19 2018 Inactive discontinue any other H2Blkr. and PPI albuterol sulfate 2.5 mg/3 mL (0.083 %) solution for nebulization RxNorm: 264164 1 Vial Inhalation every four hours as needed as needed for dyspnea 08/17/202019 Inactive 60/box. This refill negates all other refills of this medication. Please do not fill early. Please do not auto refill. Symbicort 160 mcg-4.5 mcg/actuation HFA aerosol inhaler RxNorm: 4134726 2 Puff(s) INH BID 08/17/20 No Stop Date Active Alcohol Prep Pads RxNorm: 051864 1 Patch TOP QAM 08/17/202019 Inactive Ventolin HFA 90 mcg/actuation aerosol inhaler RxNorm: 138399 2 Puff(s) INH QID 08/09/202019 Inactive Please do not fill early. Please do not auto refill. This refill negates all other refills of this medication True Metrix Glucose Test Strip RxNorm: 1 Test Strips Miscellaneous QAM 08/09/20 19 2019 Inactive 100/container atorvastatin 40 mg tablet RxNorm: 159644 1 Tablet(s) Oral every day 07/04/20 19 2019 Inactive levmetamfetamine 50 mg nasal inhaler RxNorm: 1 Unit(s) NASAL Q3-4H Do not use more than every 3 hours or 8 times/24hours 06/26/20 19 2021 Inactive Please do not auto refill. This refill negates all other refills of this medication buspirone 7.5 mg tablet RxNorm: 388690 1 Tablet(s) PO BID 06/26/20 19 2020 Inactive This refill negates all other refills of this medication hydrochlorothiazide 12.5 mg tablet RxNorm: 562049 1 Tablet(s) PO QAM 06/26/20 19 2019 Inactive Ventolin HFA 90 mcg/actuation aerosol inhaler RxNorm: 131526 2 Puff(s) INH QID 06/26/20 19 2018 Inactive Please do not fill early. Please do not auto refill. This refill negates all other refills of this medication Singulair 10 mg tablet RxNorm: 488183 1 Tablet(s) PO daily 06/26/20 19 2019 Inactive This refill negates all other refills of this medication cetirizine 10 mg tablet RxNorm: 7597145 1 Tablet(s) PO daily 06/26/20 19 2019 Inactive This refill negates all other refills of this medication. Please do not auto refill levothyroxine 50 mcg tablet RxNorm: 671664 1 Tablet(s) PO daily 06/26/20 19 2019 Inactive This refill negates all other refills of this medication diclofenac sodium 75 mg tablet,delayed release RxNorm: 648853 1 Tablet(s) PO BID 06/26/20 19 2019 Inactive This refill negates all other refills of this medication ranitidine 150 mg tablet RxNorm: 057011 1 Tablet(s) PO BID 06/26/20 19 2018 Inactive This refill negates all other refills of this medication Calcium 600-D3 Plus (mag-zinc) 600 mg calcium-800 unit-50 mg tablet RxNorm: 1 Tablet(s) PO daily take an additonal tablet for itching. 06/26/20 19 2018 Inactive This refill negates all other refills of this medication albuterol sulfate 2.5 mg/3 mL (0.083 %) solution for nebulization RxNorm: 312672 1 Vial INH QID 06/26/20 19 2018 Inactive 60/box. This refill negates all other refills of this medication. Please do not fill early. Please do not auto refill. lisinopril 2.5 mg tablet RxNorm: 573018 1 Tablet(s) PO daily 06/21/20 19 2019 Inactive gabapentin 300 mg capsule RxNorm: 818709 1 Capsule(s) PO TID 06/21/20 19 2019 Inactive atorvastatin 20 mg tablet RxNorm: 805878 1 Tablet(s) PO QHS 06/07/20 19 2018 Inactive This refill negates all other refills of this medication TRUEplus Lancets 30 gauge RxNorm: 1 Lancets Miscellaneous QAM 05/29/20 19 2018 Inactive 100/box gabapentin 300 mg capsule RxNorm: 494475 1 Capsule(s) PO TID 05/03/20 19 2018 Inactive Flintstones Complete (iron) 18 mg iron chewable tablet RxNorm: 1 Tablet(s) PO daily 04/04/202021 Inactive This refill negates all other refills of this medication gabapentin 300 mg capsule RxNorm: 054582 1 Capsule(s) PO TID as needed 02/01/20 19 2018 Inactive True Metrix Glucose Test Strip RxNorm: 1 Test Strips Miscellaneous QAM 02/01/20 19 2018 Inactive 100/container Alcohol Prep Pads RxNorm: 919196 1 Patch TOP QAM 02/01/20 19 2018 Inactive TRUEplus Lancets 30 gauge RxNorm: 1 Lancets Miscellaneous QAM 02/01/20 19 2018 Inactive 100/box lisinopril 2.5 mg tablet RxNorm: 123617 1 Tablet(s) PO daily 12/28/19 19 2018 Inactive ranitidine 150 mg tablet RxNorm: 209417 1 Tablet(s) PO BID 10/21/19 19 2018 Inactive This refill negates all other refills of this medication albuterol sulfate 2.5 mg/3 mL (0.083 %) solution for nebulization RxNorm: 914991 1 Vial INH QID 10/21/19 19 2018 [...] this medication gabapentin 300 mg capsule RxNorm: 119001 1 Capsule(s) PO TID as needed 10/21/19 19 2018 Inactive atorvastatin 20 mg tablet RxNorm: 115040 1 Tablet(s) PO QHS 10/21/19 19 2018 Inactive This refill negates all other refills of this medication trazodone 50 mg tablet RxNorm: 596457 1 Tablet(s) PO QHS 10/21/19 19 2018 Inactive This refill negates all other refills of this medication Ventolin HFA 90 mcg/actuation aerosol inhaler RxNorm: 724904 2 Puff(s) INH QID 10/21/19 19 2018 Inactive Please do not fill early. Please do not auto refill. This refill negates all other refills of this medication Calcium 600-D3 Plus 600 mg calcium-800 unit-50 mg tablet RxNorm: 1 Tablet(s) PO daily take an additonal tablet for itching. 10/21/192018 Inactive This refill negates all other refills of this medication Singulair 10 mg tablet RxNorm: 966160 1 Tablet(s) PO daily 10/21/19 19 2018 Inactive This refill negates all other refills of this medication buspirone 7.5 mg tablet RxNorm: 481900 1 Tablet(s) PO BID 10/21/192018 Inactive This refill negates all other refills of this medication diclofenac sodium 75 mg tablet,delayed release RxNorm: 914306 1 Tablet(s) PO BID 10/21/192018 Inactive This refill negates all other refills of this medication hydrochlorothiazide 12.5 mg tablet RxNorm: 130769 1 Tablet(s) PO QAM 10/21/192018 Inactive metoprolol succinate ER 50 mg tablet,extended release 24 hr RxNorm: 289001 1 Tablet(s) PO daily 10/21/192018 Inactive This refill negates all other refills of this medication levothyroxine 50 mcg tablet RxNorm: 378303 1 Tablet(s) PO daily 10/21/192018 Inactive This refill negates all other refills of this medication cetirizine 10 mg tablet RxNorm: 5905651 1 Tablet(s) PO daily 10/21/192018 Inactive This refill negates all other refills of this medication. Please do not auto refill Flintstones Complete (iron) 18 mg iron chewable tablet RxNorm: 1 Tablet(s) PO daily 10/21/192018 Inactive This refill negates all other refills of this medication buspirone 7.5 mg tablet RxNorm: 741013 1 Tablet(s) PO BID 10/12/192018 Inactive cetirizine 10 mg tablet RxNorm: 6441346 1 Tablet(s) PO daily 09/28/202018 Inactive Guaiasorb DM 10 mg-100 mg/5 mL oral liquid RxNorm: 650235 10 Milliliter(s) PO As needed every 4 hr 09/24/202018 Inactive Vicks Vaporub 4.7 %-1.2 %-2.6 % topical ointment RxNorm: 3427515 1 Application TOP TID 09/24/20 18 2018 Inactive levmetamfetamine 50 mg nasal inhaler RxNorm: 1 Unit(s) NASAL Q3-4H 09/24/20 18 2017 Inactive sertraline 50 mg tablet RxNorm: 612525 1 Tablet(s) PO daily 09/09/20 18 2018 Inactive Please note dose trazodone 50 mg tablet RxNorm: 860864 1 Tablet(s) PO QHS 09/06/20 18 2018 Inactive sertraline 50 mg tablet RxNorm: 542331 1 Tablet(s) PO daily 09/06/20 18 2017 Inactive amoxicillin 500 mg tablet RxNorm: 034590 1 Tablet(s) PO Q12H 08/31/20 18 2017 Inactive albuterol sulfate 2.5 mg/3 mL (0.083 %) solution for nebulization RxNorm: 717906 1 Vial INH QID 08/10/20 18 2018 Inactive 60/box. Please do not fill early. Please do not auto refill. Prozac 10 mg capsule RxNorm: 315868 1 Capsule(s) PO daily 08/09/20 18 2017 Inactive buspirone 7.5 mg tablet RxNorm: 744010 1 Tablet(s) PO BID 08/09/20 18 2018 Inactive gabapentin 300 mg capsule RxNorm: 672824 1 Capsule(s) PO TID as needed 08/01/20 18 2018 Inactive hydrochlorothiazide 12.5 mg tablet RxNorm: 139103 1 Tablet(s) PO QAM 08/01/20 18 2018 Inactive ranitidine 150 mg tablet RxNorm: 950464 1 Tablet(s) PO BID 08/01/20 18 2018 Inactive Macrobid 100 mg capsule RxNorm: 460719 1 Capsule(s) PO Q12H 06/21/20 18 2017 Inactive Singulair 10 mg tablet RxNorm: 775266 1 Tablet(s) PO daily 06/14/20 18 2018 Inactive Ventolin HFA 90 mcg/actuation aerosol inhaler RxNorm: 6885887 2 Puff(s) INH QID 06/14/20 18 2018 Inactive Singulair 10 mg tablet RxNorm: 584937 1 Tablet(s) PO daily 06/14/20 18 2017 Inactive buspirone 7.5 mg tablet RxNorm: 585263 1 Tablet(s) PO BID 06/14/20 18 2017 Inactive Prozac 10 mg capsule RxNorm: 450380 1 Capsule(s) PO daily 06/14/20 18 2017 Inactive Neilmed Pediatric Sinus Rinse Refill packet RxNorm: 1 Unit Dose NASAL PRN 05/31/20 18 2021 Inactive diclofenac sodium 75 mg tablet,delayed release RxNorm: 770479 1 Tablet(s) PO BID 05/31/20 18 2017 Inactive lisinopril 2.5 mg tablet RxNorm: 918925 1 Tablet(s) PO daily 05/31/20 18 2017 Inactive metoprolol succinate ER 50 mg tablet,extended release 24 hr RxNorm: 544369 1 Tablet(s) PO daily 05/31/20 18 2017 Inactive levothyroxine 50 mcg tablet RxNorm: 048430 1 Tablet(s) PO daily 05/31/20 18 2017 Inactive TRUEplus Lancets 30 gauge RxNorm: 1 Lancets Miscellaneous QAM 05/31/20 18 2017 Inactive 100/box Ventolin HFA 90 mcg/actuation aerosol inhaler RxNorm: 338053 2 Puff(s) INH QID 05/31/20 18 2017 Inactive Aleve 220 mg capsule RxNorm: 5812719 1 Capsule(s) PO BID 05/31/20 18 2018 Inactive ranitidine 150 mg tablet RxNorm: 073377 1 Tablet(s) PO BID 05/31/20 18 2017 Inactive gabapentin 300 mg capsule RxNorm: 149774 1 Capsule(s) PO TID as needed 05/31/20 18 2017 Inactive atorvastatin 20 mg tablet RxNorm: 244005 1 Tablet(s) PO QHS 05/31/20 18 2017 Inactive True Metrix Glucose Test Strip RxNorm: 1 Test Strips Miscellaneous QAM 05/31/20 18 2017 Inactive 50/container Calcium 600-D3 Plus 600 mg calcium-800 unit-50 mg tablet RxNorm: 1 Tablet(s) PO daily take an additonal tablet for itching. 05/31/20 18 2017 Inactive hydrochlorothiazide 12.5 mg tablet RxNorm: 015371 1 Tablet(s) PO QAM 05/31/20 18 2017 Inactive Flintstones Complete (iron) 18 mg iron chewable tablet RxNorm: 1 Tablet(s) PO daily 05/31/20 18 2017 Inactive d-mannose oral powder RxNorm: PO 18 2021 Inactive True Metrix Glucose Meter RxNorm: miscellaneous 08/17/20 19 2018 Inactive sertraline 50 mg tablet RxNorm: 167225 1 Tablet(s) PO daily 11/28/19 20 2019 Inactive loperamide 2 mg tablet RxNorm: 110644 oral 09/29/202018 Inactive Symbicort 160 mcg-4.5 mcg/actuation HFA aerosol inhaler RxNorm: 5847123 2 Puff(s) INH BID 08/17/202018 Inactive Medication Administered No Medication Administered data Results Observation Observation Code Item Item Code Result Date S ervice Location No Orders No Orders No Orders 0 11/01/2020 [facility] [address] [place] [address] Procedures Procedure Codes Date Urinalysis, dip stick CPT-4: 11648 09/24/2020 Patient Health Questionnaire CPT-4: DPHQ Electrocardiogram CPT-4: 24769 05/14/2020 Tobacco Assessment/Screening CPT-4: TCA Fall Risk Assessment SNOMED CT: 50410716 4 CPT-4: DFRA 01/01/2020 Functional Assessment CPT-4: DFA 01/01/2020 Claude Fany Assessment CPT-4: DSWA 11/04 Patient Health Questionnaire CPT-4: DPHQ Claude Fany Assessment CPT-4: DSWA 10/03 Hypertension CPT-4: HTN 10/17/2019 Fall Risk Assessment SNOMED CT: 92316626 4 CPT-4: DFRA 09/19/2019 Functional Assessment CPT-4: DFA 09/19/2019 Urinalysis, dip stick CPT-4: 59818 06/21/2019 Tobacco Assessment/Screening CPT-4: TCA Patient Health Questionnaire CPT-4: DPHQ AHA/REBECCA Classification Assessment CPT-4: DAHA 04/25/2019 Controlled Substance Report CPT-4: CTRSU 04/03 Urinalysis, dip stick CPT-4: 48264 03/28/2019 Urinalysis, dip stick CPT-4: 38589 03/28/2019 M7Q-Dmgpolbgcdpfvrw CPT-4: 74927 Unknown R9F-Dezqsyzssucwjcm CPT-4: 19628 Unknown L6E-Rkihgmutlutlnje CPT-4: 92464 Unknown P4P-Gzrmmxbtkkwsxlt CPT-4: 39821 Unknown Q4Y-Ipjfomokqrevgzi CPT-4: 92392 Unknown K4J-Hfbskpmlsoajfse CPT-4: 65843 Unknown Gynecology Referral SNOMED CT: 198238849 CPT-4: R14 Unknown Reason For Visit No Reason For Visit data Plan of Care Planned Activity Notes Codes Status Date Appointment: Anna Culver WPtel: [address] [place] [address] [place] E410 09/24/2020 Appointment: Anna Culver WPtel: [address] [place] [address] [place] ETV 08/26/2020 Appointment: Anna Culver WPtel: [address] [place] [address] [place] ETV 08/19/2020 Appointment: Anna Culver WPtel: [address] [place] [address] [place] ETV 07/22/2020 Appointment: Anna Culver WPtel: [address] [place] [address] [place] ETV 07/08/2020 Appointment: Gianna Birmingham: [facility] [id number] [place] ECHO 07/02/2020 Appointment: Anna Culver WPtel: [address] [place] [address] [place] E452 06/11/2020 Appointment: Anna Culver WPtel: [address] [place] [address] [place] E452 05/14/2020 Appointment: Anna Culver WPtel: [address] [place] [address] [place] E452 04/17/2020 Appointment: Anna Culver WPtel: [address] [place] [address] [place] E452 03/21/2020 Appointment: Anna Culver WPtel: [address] [place] [address] [place] E452 02/14/2020 Appointment: Anna Culver WPtel: [address] [place] [address] [place] E452 01/24/2020 Appointment: Anna Culver WPtel: [phone] [facility] [address] [place] [address] E452 01/01/2020 Appointment: Anna Culver WPtel: [phone] E452 11/28/2019 Appointment: Anna Culver WPtel: [phone] E452 10/17/2019 Appointment: Anna Culver WPtel: [phone] E452 09/19/2019 Appointment: Sudha Hernadez WPtel: [address] [place] [address] [id number] E452 07/04/2019 Appointment: Sudha Hernadez WPtel: [address] [place] [address] [id number] E452 06/21/2019 Appointment: Charlene Oropeza WPtel: [address] [place] [address] [id number] E452 05/24/2019 Appointment: [facility] 04/27/2019 Appointment: Charlene Oropeza WPtel: [address] [place] [address] [id number] E452 04/25/2019 Appointment: Rasta Palafox WPtel: [address] [place] [address] [id number] E452 03/28/2019 Appointment: Rasta Palafox WPtel: [address] [place] [address] [id number] E452 02/14/2019 Appointment: Rasta Palafox WPtel: [address] [place] [address] [id number] E452 01/31/2019 Appointment: Rasta Palafox WPtel: [address] [facility] [address] [id number] E420 12/27/2018 Referral: Pending Gynecology Referral Information Referral Processed Referral: Pending Pulmonolog y Referral Information Referral Processed Referral: Pending Psychiatry Referral Information Referral Initiated Referral: Pending Respirator y Services Referral Information Referral Initiated Referral: Pending Ophthalmology Referral Information Referral Initiated Referral: [facility] WPtel: [address] [facility] [address] Wedding Day Coordinator placed a call out to the patient to notify her that it has been recommended that she be seen by a urologist. Patient agreed to be seen, does not have a provider of choice and no transportation issues. Wedding Day Coordinator faxed referral and clinical notes to [facility] in [place], [place] near the [...] seen and prefers a provider in the [place] or [place] area. Wedding Day Coordinator placed a call out to everyone listed in the area and the only location that was able to accept the patient's insurance was [address] [address] and spoke with Maylin. Maylin asked that the patient's referral, face sheet and visit notes be faxed to . Wedding Day Coordinator faxed over requested documents. Patient appointment confirmation letter generated and mailed to her home address. Patient to call to schedule an appointment. Processed Referral: [facility] WPtel: [address] [facility] [address] [id number] Patient notified that it has been advised that she be seen by Neurology. Patient agreed to be seen and prefers to be seen by a provider in the [place], [place] area. Patient denies any concerns with transportation, and prefers to schedule her own appointment. Wedding Day Coordinator [facility] [...]
--- OUTSIDE RECORDS SUMMARY | 2023-12-07 02:15 | XMS_ITS | CCD ---
Author Name Leena Culver NP Address [address] [place] [address] [address] [place] [address] Phone Organization [email or web address] Phone Care Team Providers Care Front End Technician Name Role Phone Anna Culver NP Primary Care Provider Unav ailable Unavailable Chronic Care Management Unavaila ble Summary Purpose DataExchange Insurance Providers Payer name Policy type / Coverage type Covered republican ID Effective Begin Date Effective End Date SUKI MAYO [id number] Unknown Unknown Family history Mother Diagnosis Age [...] Unknown Disability 05/31/[address]: 309107127 Has never s moked or chewed tobacco 05/31/[address]: 313856233 Never drinks alco hol 05/31/2018 Has the [...] Condition Codes Effective Dates Condition St atus Anorexia ICD-10: R63.0 ICD-9: 783.0 12/17/2020 Active Hypertensive heart disease w ith heart failure ICD-10: I11.0 ICD-9: 402.91 04/25/2019 Active Obstructive sleep apnea (chio lt) (pediatric) ICD-10: G47.33 ICD-9: 327.23 06/21/2019 Active Type 2 diabetes mellitus wit h peripheral neuropathy ICD-10: E11.42 ICD-9: 250.60 11/28/2019 Active Apnea, not elsewhere classified ICD-10: R06.81 [...] ICD-10: R51 ICD-9: 784.0 10/03/2018 Inactive Other skilled nursing (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 ICD-10: Z79.899 ICD-9: V58.69 04/25/2019 Inactive Type 2 diabetes mellitus wit hout complications ICD-10: E11.9 ICD-9: 250.00 10/03/2018 Inactive Wheezing ICD-10: R06.2 ICD-9: 786.07 08/08/2018 Inactive Abnormal urine finding ICD-10: R82.90 ICD-9: 791.9 09/24/2020 Resolved Abrasion of toe ICD-10: S90.416A ICD-9: 917.0 02/14/2020 Resolved Acute upper respiratory infe ction, unspecified ICD-10: J06.9 ICD-9: 465.9 09/04/2019 Resolved [place] [facility] ICD-10: H10.029 ICD-9: 372.03 12/29/2019 Resolved Right wrist pain ICD-10: M25.531 ICD-9: 719.43 05/14/2020 Resolved Sinusitis ICD-10: J32.9 ICD-9: 473.9 11/07/2019 Resolved Superficial burn of multiple sites of right hand, subsequent encounter ICD-10: T23.191D ICD-9: V58.89 11/28/2020 Resolved Urinary tract infection ICD-10: N39.0 ICD-9: 599.0 10/01/2020 Resolved Essential (primary) hypertension ICD-10: I10 ICD-9: 401.9 10/03/2018 Active GERD (gastroesophageal reflu x disease) ICD-10: K21.9 ICD-9: 530.81 09/07/2019 Active History of surgery on right wrist ICD-10 : Z98.890 ICD-9: V45.89 10/29/2020 Active Adjustment disorder with mix ed anxiety and depressed mood ICD-10: F43.23 ICD-9: 309.28 09/05/2018 Active Chronic kidney disease, stag e 2 (mild) ICD-10: N18.2 ICD-9: 585.2 10/29/2020 Active Polyneuropathy, unspecified ICD-10: G62. 9 ICD-9: 356.9 05/30/2018 Active Encounter for screening, unspecified ICD-10: Z13.9 ICD-9: V82.9 09/05/2018 Active (Z12.4-V76.2) Encounter for screening for malignant neoplasm of cervix ICD-10: Z12.4 ICD-9: V76.2 04/25/2019 Active Encounter for immunization ICD-10: Z23 ICD-9: [...] ICD-10: Z68. 43 ICD-9: V85.43 05/30/2018 Active Encounter for screening for tobacco use ICD-10: Z01.89 ICD-9: V72.85 01/01/2020 Active Syncope and collapse ICD-10: R55 ICD-9: [...] unspecified ICD-10: R60.9 ICD-9: 782.3 07/11/2018 Active correction (current) use of non-steroidal anti-inflammatories (NSAID) ICD-10: Z79.1 ICD-9: V58.64 06/13/2018 Active Medications Medication Codes Instructions Start Date Stop Date Status Fill Instructions atorvastatin 40 mg tablet RxNorm: 411078 1 Tablet(s) Oral every day 12/06/19 21 2020 Inactive omeprazole 20 mg capsule,delayed release RxNorm: 674729 1 Capsule(s) Oral every evening 11/24/19 21 2020 Inactive famotidine 10 mg tablet RxNorm: 582438 1 Tablet(s) Oral every morning 11/24/19 21 2020 Inactive Alcohol Prep Pads RxNorm: 245168 USE EACH MORNING 10/14/19 21 2020 Inactive omeprazole 20 mg capsule,delayed release RxNorm: 810404 1 Capsule(s) Oral two times a day 10/13/19 21 2021 Inactive omeprazole 20 mg capsule,delayed release RxNorm: 475986 TAKE 1 CAPSULE BY MOUTH EVERY DAY 10/08/19 21 2021 Inactive Macrobid 100 mg capsule RxNorm: 171498 1 Capsule(s) Oral every 12 hours with food 10/01/20 20 2020 Inactive omeprazole 20 mg capsule,delayed release RxNorm: 018307 1 Capsule(s) Oral two times a day 09/24/20 20 2021 Inactive metformin 1,000 mg tablet RxNorm: 261655 1 Tablet(s) Oral two times a day 08/19/20 20 2020 Inactive start on September 11, 2020 metformin 500 mg tablet RxNorm: 021190 1 Tablet(s) Oral two times a day take with 500mg to equal 1000mg 08/19/20 20 2019 Inactive gabapentin 300 mg capsule RxNorm: 395689 TAKE 1 CAPSULE BY MOUTH THREE TIMES DAILY 07/11/20 20 2020 Inactive cetirizine 10 mg tablet RxNorm: 9578246 TAKE (1) TABLET BY MOUTH DAILY 07/11/20 20 2020 Inactive metformin 500 mg tablet RxNorm: 112116 1 Tablet(s) Oral two times a day 07/08/20 20 2019 Inactive loperamide 2 mg tablet RxNorm: 508118 1 Tablet(s) Oral as needed take one tablet after each loose stool, maximum of 8 tablets in 24 hours 06/24/202021 Inactive Sudafed 12 Hour 120 mg tablet,extended release RxNorm: 2214913 TAKE 1 TABLET BY MOUTH EVERY 12 HOURS NEEDED 06/11/20 20 2019 Inactive hydrochlorothiazide 25 mg tablet RxNorm: 837470 TAKE (1) TABLET BY MOUTH EVERY DAY 06/11/20 20 2019 Inactive omeprazole 20 mg capsule,delayed release RxNorm: 372142 TAKE 1 CAPSULE BY MOUTH EVERY DAY 05/14/20 20 2020 Inactive metformin 500 mg tablet RxNorm: 504913 1 Tablet(s) Oral every day 05/12/20 20 2019 Inactive True Metrix Glucose Test Strip RxNorm: 1 Test Strips Miscellaneous two times a day as needed 04/17/20 No Stop Date Active metformin 500 mg tablet RxNorm: 090879 1 Tablet(s) Oral every day 04/17/20 20 2019 Inactive diclofenac sodium 75 mg tablet,delayed release RxNorm: 814162 1 Tablet(s) PO BID 04/14/20 20 2021 Inactive This refill negates all other refills of this medication Sudafed 12 Hour 120 mg tablet,extended release RxNorm: 0607526 TAKE 1 TABLET BY MOUTH EVERY 12 HOURS NEEDED 03/14/20 20 2019 Inactive True Metrix Glucose Test Strip RxNorm: 1 Test Strips Miscellaneous every morning 03/13/20 20 2019 Inactive 100/container True Metrix Glucose Test Strip RxNorm: 1 Test Strips Miscellaneous QAM 02/22/20 20 2019 Inactive 100/container loperamide 2 mg tablet RxNorm: 165626 1 Tablet(s) Oral as needed take one tablet after each loose stool, maximum of 8 tablets in 24 hours 02/22/20 20 2019 Inactive levothyroxine 50 mcg tablet RxNorm: 429493 1 Tablet(s) PO daily 01/17/20 20 2020 Inactive cetirizine 10 mg tablet RxNorm: 9002449 1 Tablet(s) PO daily 01/17/20 20 2019 Inactive loperamide 2 mg tablet RxNorm: 994457 1 Tablet(s) Oral as needed take one tablet after each loose stool, maximum of 8 tablets in 24 hours 01/17/20 20 2019 Inactive quetiapine 100 mg tablet RxNorm: 573343 1 Tablet(s) Oral every night at bedtime 01/17/20 20 2019 Inactive gabapentin 300 mg capsule RxNorm: 992138 1 Capsule(s) PO TID 01/17/20 20 2019 Inactive lisinopril 2.5 mg tablet RxNorm: 425734 1 Tablet(s) PO daily 01/15/20 20 2020 Inactive Singulair 10 mg tablet RxNorm: 222482 1 Tablet(s) PO daily 01/15/20 20 2020 Inactive levothyroxine 50 mcg tablet RxNorm: 438654 1 Tablet(s) PO daily 01/15/20 20 2019 Inactive gabapentin 300 mg capsule RxNorm: 696579 1 Capsule(s) PO TID 01/15/20 20 2019 Inactive cetirizine 10 mg tablet RxNorm: 7932020 1 Tablet(s) PO daily 01/15/20 20 2019 Inactive gentamicin 0.3 % eye drops RxNorm: 620930 1 Drop(s) ophthalmic (eye) four times a day 12/29/19 20 2019 Inactive gentamicin 0.3 % eye drops RxNorm: 446175 1 Drop(s) ophthalmic (eye) four times a day 12/29/19 20 2019 Inactive gentamicin 0.3 % eye drops RxNorm: 054950 1 Drop(s) ophthalmic (eye) four times a day 12/29/19 20 2019 Inactive hydrochlorothiazide 25 mg tablet RxNorm: 757984 1 Tablet(s) Oral every day 12/21/19 20 2019 Inactive Sudafed 12 Hour 120 mg tablet,extended release RxNorm: 9628401 TAKE (1) TABLET BY MOUTH EVERY 12 HOURS NEEDED 12/21/19 20 2019 Inactive loperamide 2 mg tablet RxNorm: 077992 1 Tablet(s) Oral as needed take one tablet after each loose stool, maximum of 8 tablets in 24 hours 12/11/19 20 2019 Inactive loperamide 2 mg tablet RxNorm: 066546 1 Tablet(s) Oral as needed take one tablet after each loose stool, maximum of 8 tablets in 24 hours 12/11/19 20 2019 Inactive atorvastatin 40 mg tablet RxNorm: 197090 1 Tablet(s) Oral every day 11/29/19 20 2020 Inactive quetiapine 100 mg tablet RxNorm: 528771 1 Tablet(s) Oral every night at bedtime 11/28/19 20 2019 Inactive sertraline 100 mg tablet RxNorm: 593724 1 Tablet(s) Oral 11/28/19 20 2019 Inactive omeprazole 20 mg capsule,delayed release RxNorm: 413649 1 Capsule(s) Oral every day 11/20/19 20 2019 Inactive amoxicillin 250 mg capsule RxNorm: 684796 1 Capsule(s) Oral three times a day 11/07/19 20 2019 Inactive multivitamin with iron-mineral tablet RxNorm: 1 Tablet(s) Oral every day 10/29/19 20 2021 Inactive cetirizine 10 mg tablet RxNorm: 1954510 1 Tablet(s) PO daily 10/20/19 20 2019 Inactive This refill negates all other refills of this medication. Please do not auto refill Singulair 10 mg tablet RxNorm: 492935 1 Tablet(s) PO daily 10/20/19 20 2019 Inactive This refill negates all other refills of this medication gabapentin 300 mg capsule RxNorm: 783571 1 Capsule(s) PO TID 10/20/19 20 2019 Inactive lisinopril 2.5 mg tablet RxNorm: 190166 1 Tablet(s) PO daily 10/20/19 20 2019 Inactive levothyroxine 50 mcg tablet RxNorm: 868754 1 Tablet(s) PO daily 10/20/19 20 2019 Inactive This refill negates all other refills of this medication fenugreek seed extract 500 mg capsule RxNorm: 1 Capsule(s) Oral three times a day 10/17/19 20 2021 Inactive hydrochlorothiazide 25 mg tablet RxNorm: 466303 1 Tablet(s) Oral every day 10/17/19 20 2019 Inactive Alcohol Prep Pads RxNorm: 734664 1 Patch TOP QAM 10/16/19 20 2020 Inactive loperamide 2 mg tablet RxNorm: 527389 1 Tablet(s) Oral as needed take one [...] 2019 Inactive hydrochlorothiazide 25 mg tablet RxNorm: 901002 1 Tablet(s) Oral every day 09/19/20 19 2019 Inactive Sudafed 12 Hour 120 mg tablet,extended release RxNorm: 9250263 1 Tablet(s) Oral every 12 hours as needed 09/11/20 19 2018 Inactive omeprazole 20 mg capsule,delayed release RxNorm: 624299 1 Capsule(s) Oral every day 09/07/20 19 2019 Inactive Sudafed 12 Hour 120 mg tablet,extended release RxNorm: 4183832 1 Tablet(s) Oral every 12 hours as needed 09/04/20 19 2018 Inactive pantoprazole 40 mg tablet,delayed release RxNorm: 078011 1 Tablet(s) Oral every day 08/24/202018 Inactive discontinue any other H2Blkr. and PPI albuterol sulfate 2.5 mg/3 mL (0.083 %) solution for nebulization RxNorm: 304642 1 Vial Inhalation every four hours as needed as needed for dyspnea 08/17/20 19 2019 Inactive 60/box. This refill negates all other refills of this medication. Please do not fill early. Please do not auto refill. Symbicort 160 mcg-4.5 mcg/actuation HFA aerosol inhaler RxNorm: 8401213 2 Puff(s) INH BID 08/17/20 19 No Stop Date Active Alcohol Prep Pads RxNorm: 847924 1 Patch TOP QAM 08/17/20 19 2019 Inactive Ventolin HFA 90 mcg/actuation aerosol inhaler RxNorm: 850638 2 Puff(s) INH QID 08/09/20 19 2019 Inactive Please do not fill early. Please do not auto refill. This refill negates all other refills of this medication True Metrix Glucose Test Strip RxNorm: 1 Test Strips Miscellaneous QAM 08/09/20 19 2019 Inactive 100/container atorvastatin 40 mg tablet RxNorm: 085413 1 Tablet(s) Oral every day 07/04/20 19 2019 Inactive levmetamfetamine 50 mg nasal inhaler RxNorm: 1 Unit(s) NASAL Q3-4H Do not use more than every 3 hours or 8 times/24hours 06/26/20 19 2021 Inactive Please do not auto refill. This refill negates all other refills of this medication buspirone 7.5 mg tablet RxNorm: 112548 1 Tablet(s) PO BID 06/26/20 19 2020 Inactive This refill negates all other refills of this medication hydrochlorothiazide 12.5 mg tablet RxNorm: 749106 1 Tablet(s) PO QAM 06/26/20 19 2019 Inactive Ventolin HFA 90 mcg/actuation aerosol inhaler RxNorm: 744558 2 Puff(s) INH QID 06/26/20 19 2018 Inactive Please do not fill early. Please do not auto refill. This refill negates all other refills of this medication Singulair 10 mg tablet RxNorm: 359097 1 Tablet(s) PO daily 06/26/20 19 2019 Inactive This refill negates all other refills of this medication cetirizine 10 mg tablet RxNorm: 5619378 1 Tablet(s) PO daily 06/26/20 19 2019 Inactive This refill negates all other refills of this medication. Please do not auto refill levothyroxine 50 mcg tablet RxNorm: 029352 1 Tablet(s) PO daily 06/26/20 19 2019 Inactive This refill negates all other refills of this medication diclofenac sodium 75 mg tablet,delayed release RxNorm: 764312 1 Tablet(s) PO BID 06/26/20 19 2019 Inactive This refill negates all other refills of this medication ranitidine 150 mg tablet RxNorm: 832708 1 Tablet(s) PO BID 06/26/20 19 2018 Inactive This refill negates all other refills of this medication Calcium 600-D3 Plus (mag-zinc) 600 mg calcium-800 unit-50 mg tablet RxNorm: 1 Tablet(s) PO daily take an additonal tablet for itching. 06/26/20 19 2018 Inactive This refill negates all other refills of this medication albuterol sulfate 2.5 mg/3 mL (0.083 %) solution for nebulization RxNorm: 466189 1 Vial INH QID 06/26/20 19 2018 Inactive 60/box. This refill negates all other refills of this medication. Please do not fill early. Please do not auto refill. lisinopril 2.5 mg tablet RxNorm: 120602 1 Tablet(s) PO daily 06/21/20 19 2019 Inactive gabapentin 300 mg capsule RxNorm: 400591 1 Capsule(s) PO TID 06/21/20 19 2019 Inactive atorvastatin 20 mg tablet RxNorm: 181983 1 Tablet(s) PO QHS 06/07/20 19 2018 Inactive This refill negates all other refills of this medication TRUEplus Lancets 30 gauge RxNorm: 1 Lancets Miscellaneous QAM 05/29/20 19 2018 Inactive 100/box gabapentin 300 mg capsule RxNorm: 032672 1 Capsule(s) PO TID 05/03/20 19 2018 Inactive Flintstones Complete (iron) 18 mg iron chewable tablet RxNorm: 1 Tablet(s) PO daily 04/04/202021 Inactive This refill negates all other refills of this medication gabapentin 300 mg capsule RxNorm: 865026 1 Capsule(s) PO TID as needed 02/01/20 19 2018 Inactive True Metrix Glucose Test Strip RxNorm: 1 Test Strips Miscellaneous [facility] 02/01/20 19 2018 Inactive 100/container Alcohol Prep Pads RxNorm: 199430 1 Patch TOP QAM 02/01/20 19 2018 Inactive TRUEplus Lancets 30 gauge RxNorm: 1 Lancets Miscellaneous QAM 02/01/20 19 2018 Inactive 100/box lisinopril 2.5 mg tablet RxNorm: 808546 1 Tablet(s) PO daily 12/28/19 19 2018 Inactive ranitidine 150 mg tablet RxNorm: 936417 1 Tablet(s) PO BID 10/21/19 2018 Inactive This refill negates all other refills of this medication albuterol sulfate 2.5 mg/3 mL (0.083 %) solution for nebulization RxNorm: 323822 1 Vial INH QID 10/21/192018 Inactive 60/box. [...] this medication gabapentin 300 mg capsule RxNorm: 839599 1 Capsule(s) PO TID as needed 10/21/192018 Inactive atorvastatin 20 mg tablet RxNorm: 914298 1 Tablet(s) PO QHS 10/21/192018 Inactive This refill negates all other refills of this medication trazodone 50 mg tablet RxNorm: 242706 1 Tablet(s) PO QHS 10/21/192018 Inactive This refill negates all other refills of this medication Ventolin HFA 90 mcg/actuation aerosol inhaler RxNorm: 865755 2 Puff(s) INH QID 10/21/192018 Inactive Please do not fill early. Please do not auto refill. This refill negates all other refills of this medication Calcium 600-D3 Plus 600 mg calcium-800 unit-50 mg tablet RxNorm: 1 Tablet(s) PO daily take an additonal tablet for itching. 10/21/192018 Inactive This refill negates all other refills of this medication Singulair 10 mg tablet RxNorm: 597564 1 Tablet(s) PO daily 10/21/192018 Inactive This refill negates all other refills of this medication buspirone 7.5 mg tablet RxNorm: 937556 1 Tablet(s) PO BID 10/21/192018 Inactive This refill negates all other refills of this medication diclofenac sodium 75 mg tablet,delayed release RxNorm: 558505 1 Tablet(s) PO BID 10/21/19 19 2018 Inactive This refill negates all other refills of this medication hydrochlorothiazide 12.5 mg tablet RxNorm: 058280 1 Tablet(s) PO QAM 10/21/19 19 2018 Inactive metoprolol succinate ER 50 mg tablet,extended release 24 hr RxNorm: 265144 1 Tablet(s) PO daily 10/21/19 19 2018 Inactive This refill negates all other refills of this medication levothyroxine 50 mcg tablet RxNorm: 124048 1 Tablet(s) PO daily 10/21/19 19 2018 Inactive This refill negates all other refills of this medication cetirizine 10 mg tablet RxNorm: 7784034 1 Tablet(s) PO daily 10/21/19 19 2018 Inactive This refill negates all other refills of this medication. Please do not auto refill Flintstones Complete (iron) 18 mg iron chewable tablet RxNorm: 1 Tablet(s) PO daily 10/21/19 19 2018 Inactive This refill negates all other refills of this medication buspirone 7.5 mg tablet RxNorm: 540668 1 Tablet(s) PO BID 10/12/19 19 2018 Inactive cetirizine 10 mg tablet RxNorm: 4817375 1 Tablet(s) PO daily 09/28/202018 Inactive Guaiasorb DM 10 mg-100 mg/5 mL oral liquid RxNorm: 942963 10 Milliliter(s) PO As needed every 4 hr 09/24/202018 Inactive Vicks Vaporub 4.7 %-1.2 %-2.6 % topical ointment RxNorm: 1409308 1 Application TOP TID 09/24/20 18 2018 Inactive levmetamfetamine 50 mg nasal inhaler RxNorm: 1 Unit(s) NASAL Q3-4H 09/24/20 18 2017 Inactive sertraline 50 mg tablet RxNorm: 321465 1 Tablet(s) PO daily 09/09/20 18 2018 Inactive Please note dose trazodone 50 mg tablet RxNorm: 267326 1 Tablet(s) PO QHS 09/06/20 18 2018 Inactive sertraline 50 mg tablet RxNorm: 341843 1 Tablet(s) PO daily 09/06/20 18 2017 Inactive amoxicillin 500 mg tablet RxNorm: 590693 1 Tablet(s) PO Q12H 08/31/20 18 2017 Inactive albuterol sulfate 2.5 mg/3 mL (0.083 %) solution for nebulization RxNorm: 247899 1 Vial INH QID 08/10/20 18 2018 Inactive 60/box. Please do not fill early. Please do not auto refill. Prozac 10 mg capsule RxNorm: 025844 1 Capsule(s) PO daily 08/09/20 18 2017 Inactive buspirone 7.5 mg tablet RxNorm: 047040 1 Tablet(s) PO BID 08/09/20 18 2018 Inactive gabapentin 300 mg capsule RxNorm: 616909 1 Capsule(s) PO TID as needed 08/01/20 18 2018 Inactive hydrochlorothiazide 12.5 mg tablet RxNorm: 719994 1 Tablet(s) PO QAM 08/01/20 18 2018 Inactive ranitidine 150 mg tablet RxNorm: 360949 1 Tablet(s) PO BID 08/01/20 18 2018 Inactive Macrobid 100 mg capsule RxNorm: 911127 1 Capsule(s) PO Q12H 06/21/20 18 2017 Inactive Singulair 10 mg tablet RxNorm: 955828 1 Tablet(s) PO daily 06/14/20 18 2018 Inactive Ventolin HFA 90 mcg/actuation aerosol inhaler RxNorm: 3064724 2 Puff(s) INH QID 06/14/20 18 2018 Inactive Singulair 10 mg tablet RxNorm: 872080 1 Tablet(s) PO daily 06/14/20 18 2017 Inactive buspirone 7.5 mg tablet RxNorm: 594917 1 Tablet(s) PO BID 06/14/20 18 2017 Inactive Prozac 10 mg capsule RxNorm: 691284 1 Capsule(s) PO daily 06/14/20 18 2017 Inactive Neilmed Pediatric Sinus Rinse Refill packet RxNorm: 1 Unit Dose NASAL PRN 05/31/20 18 2021 Inactive diclofenac sodium 75 mg tablet,delayed release RxNorm: 332852 1 Tablet(s) PO BID 05/31/20 18 2017 Inactive lisinopril 2.5 mg tablet RxNorm: 827587 1 Tablet(s) PO daily 05/31/20 18 2017 Inactive metoprolol succinate ER 50 mg tablet,extended release 24 hr RxNorm: 933648 1 Tablet(s) PO daily 05/31/20 18 2017 Inactive levothyroxine 50 mcg tablet RxNorm: 914525 1 Tablet(s) PO daily 05/31/20 18 2017 Inactive TRUEplus Lancets 30 gauge RxNorm: 1 Lancets Miscellaneous QAM 05/31/20 18 2017 Inactive 100/box Ventolin HFA 90 mcg/actuation aerosol inhaler RxNorm: 141442 2 Puff(s) INH QID 05/31/20 18 2017 Inactive Aleve 220 mg capsule RxNorm: 4289475 1 Capsule(s) PO BID 05/31/20 18 2018 Inactive ranitidine 150 mg tablet RxNorm: 172543 1 Tablet(s) PO BID 05/31/20 18 2017 Inactive gabapentin 300 mg capsule RxNorm: 379111 1 Capsule(s) PO TID as needed 05/31/20 18 2017 Inactive atorvastatin 20 mg tablet RxNorm: 867817 1 Tablet(s) PO QHS 05/31/20 18 2017 Inactive True Metrix Glucose Test Strip RxNorm: 1 Test Strips Miscellaneous QAM 05/31/20 18 2017 Inactive 50/container Calcium 600-D3 Plus 600 mg calcium-800 unit-50 mg tablet RxNorm: 1 Tablet(s) PO daily take an additonal tablet for itching. 05/31/20 18 2017 Inactive hydrochlorothiazide 12.5 mg tablet RxNorm: 599883 1 Tablet(s) PO QAM 05/31/20 18 2017 Inactive Flintstones Complete (iron) 18 mg iron chewable tablet RxNorm: 1 Tablet(s) PO daily 05/31/20 18 2017 Inactive d-mannose oral powder RxNorm: PO 18 2021 Inactive True Metrix Glucose Meter RxNorm: miscellaneous 08/17/20 19 2018 Inactive sertraline 50 mg tablet RxNorm: 885922 1 Tablet(s) PO daily 11/28/19 20 2019 Inactive loperamide 2 mg tablet RxNorm: 963456 oral 09/29/20 19 2018 Inactive Symbicort 160 mcg-4.5 mcg/actuation HFA aerosol inhaler RxNorm: 7599249 2 Puff(s) INH BID 08/17/202018 Inactive Medication Administered No Medication Administered data Procedures Procedure Codes Date [place] Assessment CPT-4: DSWA 12/01 [place] Assessment CPT-4: DSWAUnknown 12/17/2020 Urinalysis, dip stick CPT-4: 29864 09/24/2020 Patient Health Questionnaire CPT-4: DPHQ Electrocardiogram CPT-4: 45140 05/14/2020 Tobacco Assessment/Screening CPT-4: TCA Fall Risk Assessment SNOMED CT: 70772676 4 CPT-4: DFRA 01/01/2020 Functional Assessment CPT-4: DFA 01/01/2020 [place] Assessment CPT-4: DSWA 11/04 Patient Health Questionnaire CPT-4: DPHQ [place] Assessment CPT-4: DSWA 10/03 Hypertension CPT-4: HTN 10/17/2019 Fall Risk Assessment SNOMED CT: 89707303 4 CPT-4: DFRA 09/19/2019 Functional Assessment CPT-4: DFA 09/19/2019 Urinalysis, dip stick CPT-4: 04579 06/21/2019 Tobacco Assessment/Screening CPT-4: TCA Patient Health Questionnaire CPT-4: DPHQ AHA/REBECCA Classification Assessment CPT-4: DAHA 04/25/2019 Controlled Substance Report CPT-4: CTRSU 04/03 Urinalysis, dip stick CPT-4: 24833 03/28/2019 Urinalysis, dip stick CPT-4: 61287 03/28/2019 G5P-Kopicpnksyntybo CPT-4: 74370 Unknown F3O-Gihgcfdvasviadq CPT-4: 14829 Unknown U8F-Rsjskvxhtsryjvp CPT-4: 70563 Unknown Y2G-Kjobpuvndnskpck CPT-4: 75014 Unknown Q5B-Tktrxwcprosfavl CPT-4: 31255 Unknown R9D-Jlyobgibjuvhvhp CPT-4: 51999 Unknown Gynecology Referral SNOMED CT: 132608874 CPT-4: R14 Unknown Vital Signs Date Vital 12/17/2020 Blood Pressure 1: 134/82 Code: 8480-6 BMI: 53.1 Code: 71202-5 Heart Rate 1: 90 bpm Height: 4'11 Code: 8302-2 Respiratory Rate: 16 bpm SpO2: 98% Temperature: 36.4 (C) / 97.5 (F) Weight: 263 lbs Code: 99078-4 Reason For Visit Reason For Visit Effective Dates Notes Interim health update 12/17/2020 diabetes mellitus 12/17/2020 hypertension 12/17/2020 anorexia 12/17/2020 Encounters Encounter Performer Location Location Address Codes [facility] HOME VISIT EST PATIENT Diagnosis: Type 2 diabetes mellitus with peripheral neuropathy[ICD10: E11.42] Diagnosis: Hypertensive heart disease with heart failure[ICD10: I11.0] Diagnosis: Obstructive sleep apnea (adult) (pediatric)[ICD10: G47.33] Diagnosis: Anorexia[ICD10: R63.0] Anna Culver [place] [id number] [place], [place] [id number] CPT-4: 30277 12/17/2020 Plan of Care Planned Activity Notes Codes Status Date Visit Plan: R63.0-783.0 Anorexia Ongoing lack of appetite for solid foods for several weeks, denies difficulties managing fluids-drank entire bottle of carbonated water during visit advised to continue to try small, more frequent food intake, discussed limiting carbonated beverages as this may make her feel full taking away appetite discussed benefits of [place] [employer]. note weight remain relatively stable over the past couple months-will continue to monitor E11.42-250.60 Type 2 diabetes mellitus with peripheral neuropathy testing BID and PRN if feeling symptomatic hasn't been testing since right wrist surgery (right side dominant) patient reports feeling symptomatic for BS >100, ranging 103-126, believes elevation may be result lof snack Metformin 1000mg BID - received new monitor Biot[employer] through [facility]-participant of [facility] - 10/29/2020 hgb A1C 5.6 10/17/2019 [place] 7/10-instructed on good daily foot care routine follow up with Dr. Gonzales, podiatry-diabetic shoes ophthalmology confirms visit, but doesn't remember when [...] urologist routine urology follow up-discussed urinary stimulator surgery-external trial 12/22/2020, if tolerated will have implant surgery 01/05/2021 K21.9-530.81 GERD (gastroesophageal reflux disease) trial of famotidine 10mg qam and omeprazole 20mg at bedtime discussed at last visit- encouraged getting Famotidine OTC if symptoms worsen advised to limit late evening eating, avoid fried, greasy foods, and carbonated beverages G47.33-327.23 Obstructive sleep apnea (adult) (pediatric) J45.909-493.90 Asthma has had a few nights of not wearing her cpap-discussed wearing at all times continue inhalers nebulizer routine f/u Dr. Garcia, pulmonology F43.23-309.28 Adjustment disorder with mixed anxiety and depressed mood routine follow up [facility] 08/19/2020 PHQ 9 Scoere 1, admits to [...] new appt for pap in June 2020-[facility]-reports pap negative-records requested Z01.89-V72.85 Encounter for screening for tobacco use Tobacco screen complete-patient denies ever smoking Z12.31-V76.12 (Z12.31-V76.12) Encounter for screening mammogram for malignant neoplasm of breast Z12.11-V76.51 (Z12.11-V76.51) Encounter for screening for malignant neoplasm of colon Preventative testing not indicated due to age *I reviewed the most recent CDC guidelines regarding Covid-19/Coronavirus with the patient/caregiver/designee 12/17/2020 Patient Education: Patient Medication Summary Completed 12/17/2020 Patient Education: Hypertension Completed 12/17/2020 Patient Education: Diabetes Complete d 12/17/2020 Appointment: Chivo Bishop WPtel: [address] [place] [address] ETV 11/28/2020 Appointment: Anna Culver WPtel: [address] [place] [address] [place] E[place] 11/24/2020 Appointment: Anna Culver WPtel: [id number] [place] [address] [place] E410 10/29/2020 Appointment: Anan Culver WPtel: [id number] [place] [address] [place] E410 09/24/2020 Appointment: Anna Culver WPtel: [address] [place] [address] [place] ETV 08/26/2020 Appointment: Anna Culver WPtel: [address] [place] [address] [place] E[place] 08/19/2020 Appointment: Anna Culver WPtel: [address] [place] [address] [place] ETV 07/22/2020 Appointment: Anna Culver WPtel: [address] [place] [address] [place] ETV 07/08/2020 Appointment: Gianna Birmingham: [facility] 100 [id number] [place] ECHO 07/02/2020 Appointment: Anna Culver WPtel: [address] [place] [address] [place] E452 06/11/2020 Appointment: Anna Culver WPtel: [address] [place] [address] [place] E452 05/14/2020 Appointment: Anna Culver WPtel: [address] [place] [address] [place] E452 04/17/2020 Appointment: Anna Culver WPtel: [address] [place] [address] [place] E452 03/21/2020 Appointment: Anna Culver WPtel: [address] [place] [address] [place] E452 02/14/2020 Appointment: Anna Culver WPtel: [id number] [facility] [address] [place] [address] E452 01/24/2020 Appointment: Anna Culver WPtel: [id number] [place] [address] [place] [address] E452 01/01/2020 Appointment: Anna Culver WPtel: [address] [place] [address] E452 11/28/2019 Appointment: Anna Culver WPtel: [id number] [place] [address] E452 10/17/2019 Appointment: Anna Culver WPtel: [address] [place] [address] E452 09/19/2019 Appointment: Sudha Hernadez WPtel: [address] [id number] E452 07/04/2019 Appointment: Sudha Hernadez WPtel: [address] [id number] E452 06/21/2019 Appointment: Charlene Oropeza WPtel: [address] [id number] E452 05/24/2019 Appointment: Mallory Delgado [facility] 04/27/2019 Appointment: Charlene Oropeza WPtel: [address] [id number] E452 04/25/2019 Appointment: Rasta Palafox WPtel: [address] [id number] E452 03/28/2019 Appointment: Rasta Palafox WPtel: [address] [id number] E452 02/14/2019 Appointment: Rasta Palafox WPtel: [address] [facility] [address] [id number] E452 01/31/2019 Appointment: Rasta Palafox WPtel: [address] [facility] [address] [id number] E420 12/27/2018 Referral: Pending Gynecology Referral Information Referral Processed Referral: Pending Pulmonolog y Referral Information Referral Processed Referral: Pending Psychiatry Referral Information Referral Initiated Referral: Pending Respirator y Services Referral Information Referral Initiated Referral: Pending Ophthalmology Referral Information Referral Initiated Referral: [facility] WPtel: [address] [facility] [address] Internet Researcher placed a call out to the patient to notify her that it has been recommended that she be seen by a urologist. Patient agreed to be seen, does not have a provider of choice and no transportation issues. Internet Researcher faxed referral and clinical notes to [facility] in [place], [place] near the patient's home. Patient to [...] and prefers a provider in the [place] or [place] area. Internet Researcher placed a call out to everyone listed in the area and the only location that was able to accept the patient's insurance was [place] [address] [place] [address] and spoke with Maylin. Maylin asked that the patient's referral, face sheet and visit notes be faxed to . Internet Researcher faxed over requested documents. Patient appointment confirmation letter generated and mailed to her home address. Patient to call to schedule an appointment. Processed Referral: [facility] W[facility]el: [address] [facility] [address] [place], [place] [id number] Patient notified that it has been advised that she be seen by Neurology. Patient agreed to be seen and prefers to be seen by a provider in the [place], [place] area. Patient denies any concerns with transportation, and prefers to schedule her own appointment. Internet Researcher placed a call out to [facility] [...] Assessment and plan reviewed with patient . R63.0-783.0 Anorexia Ongoing lack of appetite for solid foods for several weeks, denies difficulties managing fluids-drank entire bottle of carbonated water during visit advised to continue to try small, more frequent food intake, discussed limiting carbonated beverages as this may make her feel full taking away appetite discussed benefits of [employer]. note weight remain relatively stable over the past couple months-will continue to monitor E11.42-250.60 Type 2 diabetes mellitus with peripheral neuropathy testing BID and PRN if feeling symptomatic hasn't been testing since right wrist surgery (right side dominant) patient reports feeling symptomatic for BS >100, ranging 103-126, believes elevation may be result lof snack Metformin 1000mg BID - received new monitor Pablo through [employer]-participant of [employer] - 10/29/2020 hgb A1C 5.6 10/17/2019 [place] Fany 7/10-instructed on good daily foot care routine follow up with Dr. Gonzales, podiatry-diabetic shoes ophthalmology confirms visit, but doesn't remember when [...] urologist routine urology follow up-discussed urinary stimulator surgery-external trial 12/22/2020, if tolerated will have implant surgery 01/05/2021 K21.9-530.81 GERD (gastroesophageal reflux disease) trial of famotidine 10mg qam and omeprazole 20mg at bedtime discussed at last visit- encouraged getting Famotidine OTC if symptoms worsen advised to limit late evening eating, avoid fried, greasy foods, and carbonated beverages G47.33-327.23 Obstructive sleep apnea (adult) (pediatric); J45.909-493.90 Asthma has had a few nights of not wearing her cpap-discussed wearing at all times continue inhalers nebulizer routine f/u Dr. Garcia, pulmonology F43.23-309.28 Adjustment disorder with mixed anxiety and depressed mood routine follow up [facility] [place] 08/19/2020 PHQ 9 Scoere 1, admits to [...] new appt for pap in June 2020-[facility]-reports pap negative-records requested Z01.89-V72.85 Encounter for screening for tobacco use Tobacco screen complete-patient denies ever smoking Z12.31-V76.12 (Z12.31-V76.12) Encounter for screening mammogram for malignant neoplasm of breast Z12.11-V76.51 (Z12.11-V76.51) Encounter for screening for malignant neoplasm of colon Preventative testing not indicated due to age *I reviewed the most recent CDC guidelines regarding Covid-19/Coronavirus with the patient/caregiver/designee 12/17/2020 Medical Equipment No Medical Equipment data Advance Directives No Advance Directive data
--- OUTSIDE RECORDS SUMMARY | 2023-12-07 02:15 | XMS_ITS | CCD ---
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 [employer] [facility] Director School Name Role Phone Palomo KING, Anna Primary Care Provider Unav ailable Unavailable Chronic Care Management Unavaila ble Summary Purpose DataExchange Insurance Providers Payer name Policy type / Coverage type Covered green party ID Effective Begin Date Effective End Date SUKI MAYO [id number] Unknown Unknown Family history Mother Diagnosis Age [...] Unknown Disability 05/31/[address]: 701566673 Has never s moked or chewed tobacco 05/31/[address]: 925212406 Never drinks alco hol 05/31/2018 Has the [...] ICD-10: R51 ICD-9: 784.0 10/03/2018 Inactive Other group home (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 ICD-10: Z79.899 ICD-9: V58.69 04/25/2019 Inactive Type 2 diabetes mellitus wit hout complications ICD-10: E11.9 ICD-9: 250.00 10/03/2018 Inactive Wheezing ICD-10: R06.2 ICD-9: 786.07 08/08/2018 Inactive Abnormal urine finding ICD-10: R82.90 ICD-9: 791.9 09/24/2020 Resolved Abrasion of toe ICD-10: S90.416A ICD-9: 917.0 02/14/2020 Resolved Acute upper respiratory infe ction, unspecified ICD-10: J06.9 ICD-9: 465.9 09/04/2019 Resolved [place] eye ICD-10: H10.029 ICD-9: 372.03 12/29/2019 Resolved [...] unspecified ICD-10: R60.9 ICD-9: 782.3 07/11/2018 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 non-steroidal anti-inflammatories (NSAID) ICD-10: Z79.1 ICD-9: V58.64 06/13/2018 Active Medications Medication Codes Instructions Start Date Stop Date Status Fill Instructions lisinopril 2.5 mg tablet RxNorm: 512177 TAKE 1 TABLET BY MOUTH DAILY 01/06/20 21 2020 Inactive gabapentin 300 mg capsule RxNorm: 072004 TAKE 1 CAPSULE BY MOUTH THREE TIMES A DAY 01/06/20 21 2020 Inactive Singulair 10 mg tablet RxNorm: 552832 TAKE (1) TABLET BY MOUTH DAILY 01/06/202020 Inactive metformin 1,000 mg tablet RxNorm: 912703 1 Tablet(s) Oral two times a day 01/06/20 21 2020 Inactive atorvastatin 40 mg tablet RxNorm: 214359 1 Tablet(s) Oral every day 12/06/19 21 2020 Inactive omeprazole 20 mg capsule,delayed release RxNorm: 024665 1 Capsule(s) Oral every evening 11/24/19 21 2020 Inactive famotidine 10 mg tablet RxNorm: 560155 1 Tablet(s) Oral every morning 11/24/192020 Inactive Alcohol Prep Pads RxNorm: 654666 USE EACH MORNING 10/14/19 21 2020 Inactive omeprazole 20 mg capsule,delayed release RxNorm: 482512 1 Capsule(s) Oral two times a day 10/13/19 21 2021 Inactive omeprazole 20 mg capsule,delayed release RxNorm: 934268 TAKE 1 CAPSULE BY MOUTH EVERY DAY 10/08/19 21 2021 Inactive Macrobid 100 mg capsule RxNorm: 722842 1 Capsule(s) Oral every 12 hours with food 10/01/20 20 2020 Inactive omeprazole 20 mg capsule,delayed release RxNorm: 484358 1 Capsule(s) Oral two times a day 09/24/20 20 2021 Inactive metformin 1,000 mg tablet RxNorm: 671048 1 Tablet(s) Oral two times a day 08/19/20 20 2020 Inactive start on September 11, 2020 metformin 500 mg tablet RxNorm: 069758 1 Tablet(s) Oral two times a day take with 500mg to equal 1000mg 08/19/20 20 2019 Inactive cetirizine 10 mg tablet RxNorm: 9264316 TAKE (1) TABLET BY MOUTH DAILY 07/11/20 20 2020 Inactive gabapentin 300 mg capsule RxNorm: 540694 TAKE 1 CAPSULE BY MOUTH THREE TIMES DAILY 07/11/20 20 2020 Inactive metformin 500 mg tablet RxNorm: 926763 1 Tablet(s) Oral two times a day 07/08/20 20 2019 Inactive loperamide 2 mg tablet RxNorm: 285881 1 Tablet(s) Oral as needed take one tablet after each loose stool, maximum of 8 tablets in 24 hours 06/24/20 20 2021 Inactive Sudafed 12 Hour 120 mg tablet,extended release RxNorm: 8117147 TAKE 1 TABLET BY MOUTH EVERY 12 HOURS NEEDED 06/11/20 20 2019 Inactive hydrochlorothiazide 25 mg tablet RxNorm: 392671 TAKE (1) TABLET BY MOUTH EVERY DAY 06/11/20 20 2019 Inactive omeprazole 20 mg capsule,delayed release RxNorm: 425509 TAKE 1 CAPSULE BY MOUTH EVERY DAY 05/14/20 20 2020 Inactive metformin 500 mg tablet RxNorm: 077625 1 Tablet(s) Oral every day 05/12/20 20 2019 Inactive True Metrix Glucose Test Strip RxNorm: 1 Test Strips Miscellaneous two times a day as needed 04/17/20 No Stop Date Active metformin 500 mg tablet RxNorm: 378067 1 Tablet(s) Oral every day 04/17/20 20 2019 Inactive diclofenac sodium 75 mg tablet,delayed release RxNorm: 253094 1 Tablet(s) PO BID 04/14/20 20 2021 Inactive This refill negates all other refills of this medication Sudafed 12 Hour 120 mg tablet,extended release RxNorm: 7875967 TAKE 1 TABLET BY MOUTH EVERY 12 HOURS NEEDED 03/14/20 20 2019 Inactive True Metrix Glucose Test Strip RxNorm: 1 Test Strips Miscellaneous every morning 03/13/20 20 2019 Inactive 100/container True Metrix Glucose Test Strip RxNorm: 1 Test Strips Miscellaneous QAM 02/22/20 20 2019 Inactive 100/container loperamide 2 mg tablet RxNorm: 069597 1 Tablet(s) Oral as needed take one tablet after each loose stool, maximum of 8 tablets in 24 hours 02/22/20 20 2019 Inactive levothyroxine 50 mcg tablet RxNorm: 234673 1 Tablet(s) PO daily 01/17/20 20 2020 Inactive cetirizine 10 mg tablet RxNorm: 1188407 1 Tablet(s) PO daily 01/17/20 20 2019 Inactive loperamide 2 mg tablet RxNorm: 372170 1 Tablet(s) Oral as needed take one tablet after each loose stool, maximum of 8 tablets in 24 hours 01/17/20 20 2019 Inactive quetiapine 100 mg tablet RxNorm: 086431 1 Tablet(s) Oral every night at bedtime 01/17/20 20 2019 Inactive gabapentin 300 mg capsule RxNorm: 655936 1 Capsule(s) PO TID 01/17/20 20 2019 Inactive levothyroxine 50 mcg tablet RxNorm: 790614 1 Tablet(s) PO daily 01/15/20 20 2019 Inactive lisinopril 2.5 mg tablet RxNorm: 215848 1 Tablet(s) PO daily 01/15/20 20 2020 Inactive gabapentin 300 mg capsule RxNorm: 486876 1 Capsule(s) PO TID 01/15/20 20 2019 Inactive cetirizine 10 mg tablet RxNorm: 1892498 1 Tablet(s) PO daily 01/15/20 20 2019 Inactive Singulair 10 mg tablet RxNorm: 320495 1 Tablet(s) PO daily 01/15/20 20 2020 Inactive gentamicin 0.3 % eye drops RxNorm: 383572 1 Drop(s) ophthalmic (eye) four times a day 12/29/19 20 2019 Inactive gentamicin 0.3 % eye drops RxNorm: 838537 1 Drop(s) ophthalmic (eye) four times a day 12/29/19 20 2019 Inactive gentamicin 0.3 % eye drops RxNorm: 816869 1 Drop(s) ophthalmic (eye) four times a day 12/29/19 20 2019 Inactive hydrochlorothiazide 25 mg tablet RxNorm: 903051 1 Tablet(s) Oral every day 12/21/19 20 2019 Inactive Sudafed 12 Hour 120 mg tablet,extended release RxNorm: 5107994 TAKE (1) TABLET BY MOUTH EVERY 12 HOURS NEEDED 12/21/19 20 2019 Inactive loperamide 2 mg tablet RxNorm: 189522 1 Tablet(s) Oral as needed take one tablet after each loose stool, maximum of 8 tablets in 24 hours 12/11/19 20 2019 Inactive loperamide 2 mg tablet RxNorm: 340082 1 Tablet(s) Oral as needed take one tablet after each loose stool, maximum of 8 tablets in 24 hours 12/11/19 20 2019 Inactive atorvastatin 40 mg tablet RxNorm: 614553 1 Tablet(s) Oral every day 11/29/19 20 2020 Inactive quetiapine 100 mg tablet RxNorm: 497507 1 Tablet(s) Oral every night at bedtime 11/28/19 2019 Inactive sertraline 100 mg tablet RxNorm: 336397 1 Tablet(s) Oral 11/28/19 20 2019 Inactive omeprazole 20 mg capsule,delayed release RxNorm: 727774 1 Capsule(s) Oral every day 11/20/19 20 2019 Inactive amoxicillin 250 mg capsule RxNorm: 298792 1 Capsule(s) Oral three times a day 11/07/19 20 2019 Inactive multivitamin with iron-mineral tablet RxNorm: 1 Tablet(s) Oral every day 10/29/19 20 2021 Inactive cetirizine 10 mg tablet RxNorm: 7228506 1 Tablet(s) PO daily 10/20/19 20 2019 Inactive This refill negates all other refills of this medication. Please do not auto refill Singulair 10 mg tablet RxNorm: 095027 1 Tablet(s) PO daily 10/20/19 20 2019 Inactive This refill negates all other refills of this medication gabapentin 300 mg capsule RxNorm: 397540 1 Capsule(s) PO TID 10/20/19 20 2019 Inactive lisinopril 2.5 mg tablet RxNorm: 384124 1 Tablet(s) PO daily 10/20/19 20 2019 Inactive levothyroxine 50 mcg tablet RxNorm: 888071 1 Tablet(s) PO daily 10/20/192019 Inactive This refill negates all other refills of this medication fenugreek seed extract 500 mg capsule RxNorm: 1 Capsule(s) Oral three times a day 10/17/19 20 2021 Inactive hydrochlorothiazide 25 mg tablet RxNorm: 797101 1 Tablet(s) Oral every day 10/17/19 20 2019 Inactive Alcohol Prep Pads RxNorm: 012686 1 Patch TOP QAM 10/16/192020 Inactive loperamide 2 mg tablet RxNorm: 337258 1 Tablet(s) Oral as needed take one [...] 2019 Inactive hydrochlorothiazide 25 mg tablet RxNorm: 963298 1 Tablet(s) Oral every day 09/19/20 19 2019 Inactive Sudafed 12 Hour 120 mg tablet,extended release RxNorm: 5113869 1 Tablet(s) Oral every 12 hours as needed 09/11/20 19 2018 Inactive omeprazole 20 mg capsule,delayed release RxNorm: 317561 1 Capsule(s) Oral every day 09/07/20 19 2019 Inactive Sudafed 12 Hour 120 mg tablet,extended release RxNorm: 5864403 1 Tablet(s) Oral every 12 hours as needed 09/04/20 19 2018 Inactive pantoprazole 40 mg tablet,delayed release RxNorm: 551120 1 Tablet(s) Oral every day 08/24/20 19 2018 Inactive discontinue any other H2Blkr. and PPI albuterol sulfate 2.5 mg/3 mL (0.083 %) solution for nebulization RxNorm: 764736 1 Vial Inhalation every four hours as needed as needed for dyspnea 08/17/20 19 2019 Inactive 60/box. This refill negates all other refills of this medication. Please do not fill early. Please do not auto refill. Symbicort 160 mcg-4.5 mcg/actuation HFA aerosol inhaler RxNorm: 8407201 2 Puff(s) INH BID 08/17/20 19 No Stop Date Active Alcohol Prep Pads RxNorm: 748870 1 Patch TOP QAM 08/17/20 19 2019 Inactive Ventolin HFA 90 mcg/actuation aerosol inhaler RxNorm: 127115 2 Puff(s) INH QID 08/09/20 2019 Inactive Please do not fill early. Please do not auto refill. This refill negates all other refills of this medication True Metrix Glucose Test Strip RxNorm: 1 Test Strips Miscellaneous QAM 08/09/20 19 2019 Inactive 100/container atorvastatin 40 mg tablet RxNorm: 621780 1 Tablet(s) Oral every day 07/04/20 19 2019 Inactive levmetamfetamine 50 mg nasal inhaler RxNorm: 1 Unit(s) NASAL Q3-4H Do not use more than every 3 hours or 8 times/24hours 06/26/20 19 2021 Inactive Please do not auto refill. This refill negates all other refills of this medication buspirone 7.5 mg tablet RxNorm: 604196 1 Tablet(s) PO BID 06/26/20 19 2020 Inactive This refill negates all other refills of this medication hydrochlorothiazide 12.5 mg tablet RxNorm: 323645 1 Tablet(s) PO QAM 06/26/20 19 2019 Inactive Ventolin HFA 90 mcg/actuation aerosol inhaler RxNorm: 614738 2 Puff(s) INH QID 06/26/20 19 2018 Inactive Please do not fill early. Please do not auto refill. This refill negates all other refills of this medication Singulair 10 mg tablet RxNorm: 449411 1 Tablet(s) PO daily 06/26/20 19 2019 Inactive This refill negates all other refills of this medication cetirizine 10 mg tablet RxNorm: 6929762 1 Tablet(s) PO daily 06/26/20 19 2019 Inactive This refill negates all other refills of this medication. Please do not auto refill levothyroxine 50 mcg tablet RxNorm: 233829 1 Tablet(s) PO daily 06/26/20 19 2019 Inactive This refill negates all other refills of this medication diclofenac sodium 75 mg tablet,delayed release RxNorm: 852856 1 Tablet(s) PO BID 06/26/20 19 2019 Inactive This refill negates all other refills of this medication ranitidine 150 mg tablet RxNorm: 863552 1 Tablet(s) PO BID 06/26/20 19 2018 Inactive This refill negates all other refills of this medication Calcium 600-D3 Plus (mag-zinc) 600 mg calcium-800 unit-50 mg tablet RxNorm: 1 Tablet(s) PO daily take an additonal tablet for itching. 06/26/20 19 2018 Inactive This refill negates all other refills of this medication albuterol sulfate 2.5 mg/3 mL (0.083 %) solution for nebulization RxNorm: 590374 1 Vial INH QID 06/26/20 19 2018 Inactive 60/box. This refill negates all other refills of this medication. Please do not fill early. Please do not auto refill. lisinopril 2.5 mg tablet RxNorm: 834029 1 Tablet(s) PO daily 06/21/20 19 2019 Inactive gabapentin 300 mg capsule RxNorm: 126849 1 Capsule(s) PO TID 06/21/20 19 2019 Inactive atorvastatin 20 mg tablet RxNorm: 834652 1 Tablet(s) PO QHS 06/07/20 19 2018 Inactive This refill negates all other refills of this medication TRUEplus Lancets 30 gauge RxNorm: 1 Lancets Miscellaneous QAM 05/29/20 19 2018 Inactive 100/box gabapentin 300 mg capsule RxNorm: 025553 1 Capsule(s) PO TID 05/03/20 19 2018 Inactive Flintsmaury Complete (iron) 18 mg iron chewable tablet RxNorm: 1 Tablet(s) PO daily 04/04/20 19 2021 Inactive This refill negates all other refills of this medication gabapentin 300 mg capsule RxNorm: 816298 1 Capsule(s) PO TID as needed 02/01/20 19 2018 Inactive True Metrix Glucose Test Strip RxNorm: 1 Test Strips Miscellaneous QAM 02/01/20 19 2018 Inactive 100/container Alcohol Prep Pads RxNorm: 412405 1 Patch TOP QAM 02/01/20 19 2018 Inactive TRUEplus Lancets 30 gauge RxNorm: 1 Lancets Miscellaneous QAM 02/01/20 19 2018 Inactive 100/box lisinopril 2.5 mg tablet RxNorm: 218321 1 Tablet(s) PO daily 12/28/19 19 2018 Inactive ranitidine 150 mg tablet RxNorm: 236112 1 Tablet(s) PO BID 10/21/19 19 2018 Inactive This refill negates all other refills of this medication albuterol sulfate 2.5 mg/3 mL (0.083 %) solution for nebulization RxNorm: 532810 1 Vial INH QID 10/21/19 19 2018 [...] this medication gabapentin 300 mg capsule RxNorm: 484847 1 Capsule(s) PO TID as needed 10/21/19 19 2018 Inactive atorvastatin 20 mg tablet RxNorm: 374399 1 Tablet(s) PO QHS 10/21/19 19 2018 Inactive This refill negates all other refills of this medication trazodone 50 mg tablet RxNorm: 734337 1 Tablet(s) PO QHS 10/21/192018 Inactive This refill negates all other refills of this medication Ventolin HFA 90 mcg/actuation aerosol inhaler RxNorm: 912628 2 Puff(s) INH QID 10/21/19 19 2018 [...] this medication Singulair 10 mg tablet RxNorm: 709458 1 Tablet(s) PO daily 10/21/19 19 2018 Inactive This refill negates all other refills of this medication buspirone 7.5 mg tablet RxNorm: 494797 1 Tablet(s) PO BID 10/21/19 19 2018 Inactive This refill negates all other refills of this medication diclofenac sodium 75 mg tablet,delayed release RxNorm: 846926 1 Tablet(s) PO BID 10/21/19 19 2018 Inactive This refill negates all other refills of this medication hydrochlorothiazide 12.5 mg tablet RxNorm: 033894 1 Tablet(s) PO QAM 10/21/19 19 2018 Inactive metoprolol succinate ER 50 mg tablet,extended release 24 hr RxNorm: 179123 1 Tablet(s) PO daily 10/21/19 19 2018 Inactive This refill negates all other refills of this medication levothyroxine 50 mcg tablet RxNorm: 575370 1 Tablet(s) PO daily 10/21/19 19 2018 Inactive This refill negates all other refills of this medication cetirizine 10 mg tablet RxNorm: 9923074 1 Tablet(s) PO daily 10/21/19 19 2018 Inactive This refill negates all other refills of this medication. Please do not auto refill Flintstones Complete (iron) 18 mg iron chewable tablet RxNorm: 1 Tablet(s) PO daily 10/21/192018 Inactive This refill negates all other refills of this medication buspirone 7.5 mg tablet RxNorm: 181449 1 Tablet(s) PO BID 10/12/192018 Inactive cetirizine 10 mg tablet RxNorm: 2270075 1 Tablet(s) PO daily 09/28/202018 Inactive Guaiasorb DM 10 mg-100 mg/5 mL oral liquid RxNorm: 922223 10 Milliliter(s) PO As needed every 4 hr 09/24/20 18 2018 Inactive Vicks Vaporub 4.7 %-1.2 %-2.6 % topical ointment RxNorm: 1479240 1 Application TOP TID 09/24/20 18 2018 Inactive levmetamfetamine 50 mg nasal inhaler RxNorm: 1 Unit(s) NASAL Q3-4H 09/24/20 18 2017 Inactive sertraline 50 mg tablet RxNorm: 846542 1 Tablet(s) PO daily 09/09/20 18 2018 Inactive Please note dose trazodone 50 mg tablet RxNorm: 660174 1 Tablet(s) PO QHS 09/06/20 18 2018 Inactive sertraline 50 mg tablet RxNorm: 814135 1 Tablet(s) PO daily 09/06/20 18 2017 Inactive amoxicillin 500 mg tablet RxNorm: 895076 1 Tablet(s) PO Q12H 08/31/20 18 2017 Inactive albuterol sulfate 2.5 mg/3 mL (0.083 %) solution for nebulization RxNorm: 209409 1 Vial INH QID 08/10/20 18 2018 Inactive 60/box. Please do not fill early. Please do not auto refill. Prozac 10 mg capsule RxNorm: 800670 1 Capsule(s) PO daily 08/09/20 18 2017 Inactive buspirone 7.5 mg tablet RxNorm: 410934 1 Tablet(s) PO BID 08/09/20 18 2018 Inactive gabapentin 300 mg capsule RxNorm: 673295 1 Capsule(s) PO TID as needed 08/01/20 18 2018 Inactive hydrochlorothiazide 12.5 mg tablet RxNorm: 962113 1 Tablet(s) PO QAM 08/01/20 18 2018 Inactive ranitidine 150 mg tablet RxNorm: 437102 1 Tablet(s) PO BID 08/01/20 18 2018 Inactive Macrobid 100 mg capsule RxNorm: 408003 1 Capsule(s) PO Q12H 06/21/20 18 2017 Inactive Singulair 10 mg tablet RxNorm: 046069 1 Tablet(s) PO daily 06/14/20 18 2018 Inactive Ventolin HFA 90 mcg/actuation aerosol inhaler RxNorm: 1461679 2 Puff(s) INH QID 06/14/20 18 2018 Inactive Singulair 10 mg tablet RxNorm: 299463 1 Tablet(s) PO daily 06/14/20 18 2017 Inactive buspirone 7.5 mg tablet RxNorm: 983594 1 Tablet(s) PO BID 06/14/20 18 2017 Inactive Prozac 10 mg capsule RxNorm: 599147 1 Capsule(s) PO daily 06/14/20 18 2017 Inactive Neilmed Pediatric Sinus Rinse Refill packet RxNorm: 1 Unit Dose NASAL PRN 05/31/20 18 2021 Inactive diclofenac sodium 75 mg tablet,delayed release RxNorm: 164831 1 Tablet(s) PO BID 05/31/20 18 2017 Inactive lisinopril 2.5 mg tablet RxNorm: 780692 1 Tablet(s) PO daily 05/31/20 18 2017 Inactive metoprolol succinate ER 50 mg tablet,extended release 24 hr RxNorm: 486611 1 Tablet(s) PO daily 05/31/20 18 2017 Inactive levothyroxine 50 mcg tablet RxNorm: 078918 1 Tablet(s) PO daily 05/31/20 18 2017 Inactive TRUEplus Lancets 30 gauge RxNorm: 1 Lancets Miscellaneous QAM 05/31/20 18 2017 Inactive 100/box Ventolin HFA 90 mcg/actuation aerosol inhaler RxNorm: 393746 2 Puff(s) INH QID 05/31/20 18 2017 Inactive Aleve 220 mg capsule RxNorm: 3605786 1 Capsule(s) PO BID 05/31/20 18 2018 Inactive ranitidine 150 mg tablet RxNorm: 843921 1 Tablet(s) PO BID 05/31/20 18 2017 Inactive gabapentin 300 mg capsule RxNorm: 040672 1 Capsule(s) PO TID as needed 05/31/20 18 2017 Inactive atorvastatin 20 mg tablet RxNorm: 448663 1 Tablet(s) PO QHS 05/31/20 18 2017 Inactive True Metrix Glucose Test Strip RxNorm: 1 Test Strips Miscellaneous QAM 05/31/20 18 2017 Inactive 50/container Calcium 600-D3 Plus 600 mg calcium-800 unit-50 mg tablet RxNorm: 1 Tablet(s) PO daily take an additonal tablet for itching. 05/31/20 18 2017 Inactive hydrochlorothiazide 12.5 mg tablet RxNorm: 747166 1 Tablet(s) PO QAM 05/31/20 18 2017 Inactive Flintstones Complete (iron) 18 mg iron chewable tablet RxNorm: 1 Tablet(s) PO daily 05/31/20 18 2017 Inactive d-mannose oral powder RxNorm: PO 18 2021 Inactive True Metrix Glucose Meter RxNorm: miscellaneous 08/17/20 19 2018 Inactive sertraline 50 mg tablet RxNorm: 578281 1 Tablet(s) PO daily 11/28/19 20 2019 Inactive loperamide 2 mg tablet RxNorm: 014881 oral 09/29/20 19 2018 Inactive Symbicort 160 mcg-4.5 mcg/actuation HFA aerosol inhaler RxNorm: 9377199 2 Puff(s) INH BID 08/17/20 19 2018 Inactive Medication Administered No Medication Administered data Procedures Procedure Codes Date [place] Fany Assessment CPT-4: DSWA 12/01 Urinalysis, dip stick CPT-4: 72898 09/24/2020 Patient Health Questionnaire CPT-4: DPHQ Electrocardiogram CPT-4: 59228 05/14/2020 Tobacco Assessment/Screening CPT-4: TCA Fall Risk Assessment SNOMED CT: 78916156 4 CPT-4: DFRA 01/01/2020 Functional Assessment CPT-4: DFA 01/01/2020 [place] Fany Assessment CPT-4: DSWA 11/04 Patient Health Questionnaire CPT-4: DPHQ [place] Fany Assessment CPT-4: DSWA 10/03 Hypertension CPT-4: HTN 10/17/2019 Fall Risk Assessment SNOMED CT: 86887458 4 CPT-4: DFRA 09/19/2019 Functional Assessment CPT-4: DFA 09/19/2019 Urinalysis, dip stick CPT-4: 39030 06/21/2019 Tobacco Assessment/Screening CPT-4: TCA Patient Health Questionnaire CPT-4: DPHQ AHA/REBECCA Classification Assessment CPT-4: DAHA 04/25/2019 Controlled Substance Report CPT-4: CTRSU 04/03 Urinalysis, dip stick CPT-4: 60953 03/28/2019 Urinalysis, dip stick CPT-4: 94723 03/28/2019 [id number] CPT-4: 83819 Unknown Z8D-Nqxnedhpidzqxcv CPT-4: 59076 Unknown O6X-Yntnwifskheuzwu CPT-4: 20698 Unknown U7I-Ktsygmhnwaetjqw CPT-4: 41824 Unknown G6Z-Nbcpmrzgegepnse CPT-4: 83426 Unknown C2L-Favmkvqijanjyof CPT-4: 70260 Unknown Gynecology Referral SNOMED CT: 032339314 CPT-4: R14 Unknown Reason For Visit No [...] Initiated Referral: [facility] WPtel: [address] [place] [address] [address] [place] [address] [place] Ict Project Manager placed a call out to the patient to notify her that it has been recommended that she be seen by a urologist. Patient agreed to be seen, does not have a provider of choice and no transportation issues. Ict Project Manager faxed referral and clinical notes to [facility] in [place], [place] near the patient's home. Patient to [...] seen and prefers a provider in the [place] or [place] area. Ict Project Manager placed a call out to everyone listed in the area and the only location that was able to accept the patient's insurance was [place] [address] [place] [address] and spoke with Maylin. Maylin asked that the patient's referral, face sheet and visit notes be faxed to . Ict Project Manager faxed over requested documents. Patient appointment confirmation letter generated and mailed to her home address. Patient to call to schedule an appointment. Processed Referral: [facility] WPtel: [address] [place] [address] Patient notified that it has been advised that she be seen by Neurology. Patient agreed to be seen and prefers to be seen by a provider in the [place], [place] area. Patient denies any concerns with transportation, and prefers to schedule her own appointment. Ict Project Manager placed a call out to [facility] and spoke with Neeraj Mcfarland: who confirmed that their office is able to accept new patients and the patient's insurance. After confirming the providers fax number, hand sign writer faxed over the patient's referral, [...]
--- OUTSIDE RECORDS SUMMARY | 2023-12-07 02:15 | XMS_ITS | CCD ---
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 Teaching Fellow Name Role Phone Palomo KING, Anna Primary Care Provider Unav ailable Unavailable Chronic Care Management Unavaila ble Summary Purpose DataExchange Insurance Providers Payer name Policy type / Coverage type Covered constitution party ID Effective Begin Date Effective End Date SUKI MAYO [id number] Unknown Unknown Family history Mother Diagnosis Age [...] Unknown Disability 05/31/[address]: 051467277 Has never s moked or chewed tobacco 05/31/[address]: 317522310 Never drinks alco hol 05/31/2018 Has the [...] 784.0 10/03/2018 Inactive Other prison (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 ICD-10: Z79.899 ICD-9: V58.69 04/25/2019 Inactive Type 2 diabetes mellitus wit hout complications ICD-10: E11.9 ICD-9: 250.00 10/03/2018 Inactive Wheezing ICD-10: R06.2 ICD-9: 786.07 08/08/2018 Inactive Abnormal urine finding ICD-10: R82.90 ICD-9: 791.9 09/24/2020 Resolved Abrasion of toe ICD-10: S90.416A ICD-9: 917.0 02/14/2020 Resolved Acute upper respiratory infe ction, unspecified ICD-10: J06.9 ICD-9: 465.9 09/04/2019 Resolved [place] eye ICD-10: H10.029 ICD-9: 372.03 12/29/2019 Resolved [...] ICD-10: R60.9 ICD-9: 782.3 07/11/2018 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) use of non-steroidal anti-inflammatories (NSAID) ICD-10: Z79.1 ICD-9: V58.64 06/13/2018 Active Medications Medication Codes Instructions Start Date Stop Date Status Fill Instructions lisinopril 2.5 mg tablet RxNorm: 962639 TAKE 1 TABLET BY MOUTH DAILY 01/06/20 21 2020 Inactive gabapentin 300 mg capsule RxNorm: 697445 TAKE 1 CAPSULE BY MOUTH THREE TIMES A DAY 01/06/20 21 2020 Inactive Singulair 10 mg tablet RxNorm: 449553 TAKE (1) TABLET BY MOUTH DAILY 01/06/202020 Inactive metformin 1,000 mg tablet RxNorm: 525279 1 Tablet(s) Oral two times a day 01/06/20 21 2020 Inactive atorvastatin 40 mg tablet RxNorm: 238597 1 Tablet(s) Oral every day 12/06/19 21 2020 Inactive omeprazole 20 mg capsule,delayed release RxNorm: 283787 1 Capsule(s) Oral every evening 11/24/19 21 2020 Inactive famotidine 10 mg tablet RxNorm: 136822 1 Tablet(s) Oral every morning 11/24/192020 Inactive Alcohol Prep Pads RxNorm: 163346 USE EACH MORNING 10/14/19 21 2020 Inactive omeprazole 20 mg capsule,delayed release RxNorm: 701337 1 Capsule(s) Oral two times a day 10/13/19 21 2021 Inactive omeprazole 20 mg capsule,delayed release RxNorm: 409768 TAKE 1 CAPSULE BY MOUTH EVERY DAY 10/08/19 21 2021 Inactive Macrobid 100 mg capsule RxNorm: 358268 1 Capsule(s) Oral every 12 hours with food 10/01/20 20 2020 Inactive omeprazole 20 mg capsule,delayed release RxNorm: 861138 1 Capsule(s) Oral two times a day 09/24/20 20 2021 Inactive metformin 1,000 mg tablet RxNorm: 885144 1 Tablet(s) Oral two times a day 08/19/20 20 2020 Inactive start on September 11, 2020 metformin 500 mg tablet RxNorm: 343060 1 Tablet(s) Oral two times a day take with 500mg to equal 1000mg 08/19/20 20 2019 Inactive cetirizine 10 mg tablet RxNorm: 5185350 TAKE (1) TABLET BY MOUTH DAILY 07/11/20 20 2020 Inactive gabapentin 300 mg capsule RxNorm: 380945 TAKE 1 CAPSULE BY MOUTH THREE TIMES DAILY 07/11/20 20 2020 Inactive metformin 500 mg tablet RxNorm: 371265 1 Tablet(s) Oral two times a day 07/08/20 20 2019 Inactive loperamide 2 mg tablet RxNorm: 211501 1 Tablet(s) Oral as needed take one tablet after each loose stool, maximum of 8 tablets in 24 hours 06/24/20 20 2021 Inactive Sudafed 12 Hour 120 mg tablet,extended release RxNorm: 3769841 TAKE 1 TABLET BY MOUTH EVERY 12 HOURS NEEDED 06/11/20 20 2019 Inactive hydrochlorothiazide 25 mg tablet RxNorm: 573293 TAKE (1) TABLET BY MOUTH EVERY DAY 06/11/20 20 2019 Inactive omeprazole 20 mg capsule,delayed release RxNorm: 834852 TAKE 1 CAPSULE BY MOUTH EVERY DAY 05/14/20 20 2020 Inactive metformin 500 mg tablet RxNorm: 622857 1 Tablet(s) Oral every day 05/12/20 20 2019 Inactive True Metrix Glucose Test Strip RxNorm: 1 Test Strips Miscellaneous two times a day as needed 04/17/20 No Stop Date Active metformin 500 mg tablet RxNorm: 180615 1 Tablet(s) Oral every day 04/17/20 20 2019 Inactive diclofenac sodium 75 mg tablet,delayed release RxNorm: 449182 1 Tablet(s) PO BID 04/14/20 20 2021 Inactive This refill negates all other refills of this medication Sudafed 12 Hour 120 mg tablet,extended release RxNorm: 6214156 TAKE 1 TABLET BY MOUTH EVERY 12 HOURS NEEDED 03/14/20 20 2019 Inactive True Metrix Glucose Test Strip RxNorm: 1 Test Strips Miscellaneous every morning 03/13/20 20 2019 Inactive 100/container True Metrix Glucose Test Strip RxNorm: 1 Test Strips Miscellaneous QAM 02/22/20 20 2019 Inactive 100/container loperamide 2 mg tablet RxNorm: 846918 1 Tablet(s) Oral as needed take one tablet after each loose stool, maximum of 8 tablets in 24 hours 02/22/20 20 2019 Inactive levothyroxine 50 mcg tablet RxNorm: 662150 1 Tablet(s) PO daily 01/17/20 20 2020 Inactive cetirizine 10 mg tablet RxNorm: 4826428 1 Tablet(s) PO daily 01/17/20 20 2019 Inactive loperamide 2 mg tablet RxNorm: 574677 1 Tablet(s) Oral as needed take one tablet after each loose stool, maximum of 8 tablets in 24 hours 01/17/20 20 2019 Inactive quetiapine 100 mg tablet RxNorm: 135576 1 Tablet(s) Oral every night at bedtime 01/17/20 20 2019 Inactive gabapentin 300 mg capsule RxNorm: 390611 1 Capsule(s) PO TID 01/17/20 20 2019 Inactive levothyroxine 50 mcg tablet RxNorm: 398104 1 Tablet(s) PO daily 01/15/20 20 2019 Inactive lisinopril 2.5 mg tablet RxNorm: 007754 1 Tablet(s) PO daily 01/15/20 20 2020 Inactive gabapentin 300 mg capsule RxNorm: 408951 1 Capsule(s) PO TID 01/15/20 20 2019 Inactive cetirizine 10 mg tablet RxNorm: 6732087 1 Tablet(s) PO daily 01/15/20 20 2019 Inactive Singulair 10 mg tablet RxNorm: 237203 1 Tablet(s) PO daily 01/15/20 20 2020 Inactive gentamicin 0.3 % eye drops RxNorm: 934598 1 Drop(s) ophthalmic (eye) four times a day 12/29/19 20 2019 Inactive gentamicin 0.3 % eye drops RxNorm: 897866 1 Drop(s) ophthalmic (eye) four times a day 12/29/19 20 2019 Inactive gentamicin 0.3 % eye drops RxNorm: 411868 1 Drop(s) ophthalmic (eye) four times a day 12/29/19 20 2019 Inactive hydrochlorothiazide 25 mg tablet RxNorm: 431264 1 Tablet(s) Oral every day 12/21/19 20 2019 Inactive Sudafed 12 Hour 120 mg tablet,extended release RxNorm: 0049638 TAKE (1) TABLET BY MOUTH EVERY 12 HOURS NEEDED 12/21/19 20 2019 Inactive loperamide 2 mg tablet RxNorm: 085818 1 Tablet(s) Oral as needed take one tablet after each loose stool, maximum of 8 tablets in 24 hours 12/11/19 20 2019 Inactive loperamide 2 mg tablet RxNorm: 368583 1 Tablet(s) Oral as needed take one tablet after each loose stool, maximum of 8 tablets in 24 hours 12/11/19 20 2019 Inactive atorvastatin 40 mg tablet RxNorm: 381145 1 Tablet(s) Oral every day 11/29/19 20 2020 Inactive quetiapine 100 mg tablet RxNorm: 230077 1 Tablet(s) Oral every night at bedtime 11/28/19 2019 Inactive sertraline 100 mg tablet RxNorm: 418673 1 Tablet(s) Oral 11/28/19 20 2019 Inactive omeprazole 20 mg capsule,delayed release RxNorm: 717870 1 Capsule(s) Oral every day 11/20/19 20 2019 Inactive amoxicillin 250 mg capsule RxNorm: 075987 1 Capsule(s) Oral three times a day 11/07/19 20 2019 Inactive multivitamin with iron-mineral tablet RxNorm: 1 Tablet(s) Oral every day 10/29/19 20 2021 Inactive cetirizine 10 mg tablet RxNorm: 2257068 1 Tablet(s) PO daily 10/20/19 20 2019 Inactive This refill negates all other refills of this medication. Please do not auto refill Singulair 10 mg tablet RxNorm: 407493 1 Tablet(s) PO daily 10/20/19 20 2019 Inactive This refill negates all other refills of this medication gabapentin 300 mg capsule RxNorm: 807947 1 Capsule(s) PO TID 10/20/19 20 2019 Inactive lisinopril 2.5 mg tablet RxNorm: 063346 1 Tablet(s) PO daily 10/20/19 20 2019 Inactive levothyroxine 50 mcg tablet RxNorm: 265174 1 Tablet(s) PO daily 10/20/192019 Inactive This refill negates all other refills of this medication fenugreek seed extract 500 mg capsule RxNorm: 1 Capsule(s) Oral three times a day 10/17/19 20 2021 Inactive hydrochlorothiazide 25 mg tablet RxNorm: 595865 1 Tablet(s) Oral every day 10/17/19 20 2019 Inactive Alcohol Prep Pads RxNorm: 763289 1 Patch TOP QAM 10/16/192020 Inactive loperamide 2 mg tablet RxNorm: 492817 1 Tablet(s) Oral as needed take one [...] 2019 Inactive hydrochlorothiazide 25 mg tablet RxNorm: 881666 1 Tablet(s) Oral every day 09/19/20 19 2019 Inactive Sudafed 12 Hour 120 mg tablet,extended release RxNorm: 8006473 1 Tablet(s) Oral every 12 hours as needed 09/11/20 19 2018 Inactive omeprazole 20 mg capsule,delayed release RxNorm: 547365 1 Capsule(s) Oral every day 09/07/20 19 2019 Inactive Sudafed 12 Hour 120 mg tablet,extended release RxNorm: 7201493 1 Tablet(s) Oral every 12 hours as needed 09/04/20 19 2018 Inactive pantoprazole 40 mg tablet,delayed release RxNorm: 289059 1 Tablet(s) Oral every day 08/24/20 19 2018 Inactive discontinue any other H2Blkr. and PPI albuterol sulfate 2.5 mg/3 mL (0.083 %) solution for nebulization RxNorm: 811826 1 Vial Inhalation every four hours as needed as needed for dyspnea 08/17/20 19 2019 Inactive 60/box. This refill negates all other refills of this medication. Please do not fill early. Please do not auto refill. Symbicort 160 mcg-4.5 mcg/actuation HFA aerosol inhaler RxNorm: 5205904 2 Puff(s) INH BID 08/17/20 19 No Stop Date Active Alcohol Prep Pads RxNorm: 740600 1 Patch TOP QAM 08/17/20 19 2019 Inactive Ventolin HFA 90 mcg/actuation aerosol inhaler RxNorm: 698007 2 Puff(s) INH QID 08/09/20 2019 Inactive Please do not fill early. Please do not auto refill. This refill negates all other refills of this medication True Metrix Glucose Test Strip RxNorm: 1 Test Strips Miscellaneous QAM 08/09/20 19 2019 Inactive 100/container atorvastatin 40 mg tablet RxNorm: 050522 1 Tablet(s) Oral every day 07/04/20 19 2019 Inactive levmetamfetamine 50 mg nasal inhaler RxNorm: 1 Unit(s) NASAL Q3-4H Do not use more than every 3 hours or 8 times/24hours 06/26/20 19 2021 Inactive Please do not auto refill. This refill negates all other refills of this medication buspirone 7.5 mg tablet RxNorm: 780640 1 Tablet(s) PO BID 06/26/20 19 2020 Inactive This refill negates all other refills of this medication hydrochlorothiazide 12.5 mg tablet RxNorm: 578286 1 Tablet(s) PO QAM 06/26/20 19 2019 Inactive Ventolin HFA 90 mcg/actuation aerosol inhaler RxNorm: 948457 2 Puff(s) INH QID 06/26/20 19 2018 Inactive Please do not fill early. Please do not auto refill. This refill negates all other refills of this medication Singulair 10 mg tablet RxNorm: 730712 1 Tablet(s) PO daily 06/26/20 19 2019 Inactive This refill negates all other refills of this medication cetirizine 10 mg tablet RxNorm: 3145738 1 Tablet(s) PO daily 06/26/20 19 2019 Inactive This refill negates all other refills of this medication. Please do not auto refill levothyroxine 50 mcg tablet RxNorm: 921526 1 Tablet(s) PO daily 06/26/20 19 2019 Inactive This refill negates all other refills of this medication diclofenac sodium 75 mg tablet,delayed release RxNorm: 067624 1 Tablet(s) PO BID 06/26/20 19 2019 Inactive This refill negates all other refills of this medication ranitidine 150 mg tablet RxNorm: 116849 1 Tablet(s) PO BID 06/26/20 19 2018 Inactive This refill negates all other refills of this medication Calcium 600-D3 Plus (mag-zinc) 600 mg calcium-800 unit-50 mg tablet RxNorm: 1 Tablet(s) PO daily take an additonal tablet for itching. 06/26/20 19 2018 Inactive This refill negates all other refills of this medication albuterol sulfate 2.5 mg/3 mL (0.083 %) solution for nebulization RxNorm: 237665 1 Vial INH QID 06/26/20 19 2018 Inactive 60/box. This refill negates all other refills of this medication. Please do not fill early. Please do not auto refill. lisinopril 2.5 mg tablet RxNorm: 487045 1 Tablet(s) PO daily 06/21/20 19 2019 Inactive gabapentin 300 mg capsule RxNorm: 015254 1 Capsule(s) PO TID 06/21/20 19 2019 Inactive atorvastatin 20 mg tablet RxNorm: 893194 1 Tablet(s) PO QHS 06/07/20 19 2018 Inactive This refill negates all other refills of this medication TRUEplus Lancets 30 gauge RxNorm: 1 Lancets Miscellaneous QAM 05/29/20 19 2018 Inactive 100/box gabapentin 300 mg capsule RxNorm: 594462 1 Capsule(s) PO TID 05/03/20 19 2018 Inactive Flintsmaury Complete (iron) 18 mg iron chewable tablet RxNorm: 1 Tablet(s) PO daily 04/04/20 19 2021 Inactive This refill negates all other refills of this medication gabapentin 300 mg capsule RxNorm: 386955 1 Capsule(s) PO TID as needed 02/01/20 19 2018 Inactive True Metrix Glucose Test Strip RxNorm: 1 Test Strips Miscellaneous QAM 02/01/20 19 2018 Inactive 100/container Alcohol Prep Pads RxNorm: 738940 1 Patch TOP QAM 02/01/20 19 2018 Inactive TRUEplus Lancets 30 gauge RxNorm: 1 Lancets Miscellaneous QAM 02/01/20 19 2018 Inactive 100/box lisinopril 2.5 mg tablet RxNorm: 911050 1 Tablet(s) PO daily 12/28/19 19 2018 Inactive ranitidine 150 mg tablet RxNorm: 843077 1 Tablet(s) PO BID 10/21/19 19 2018 Inactive This refill negates all other refills of this medication albuterol sulfate 2.5 mg/3 mL (0.083 %) solution for nebulization RxNorm: 151775 1 Vial INH QID 10/21/19 19 2018 [...] this medication gabapentin 300 mg capsule RxNorm: 655099 1 Capsule(s) PO TID as needed 10/21/19 19 2018 Inactive atorvastatin 20 mg tablet RxNorm: 573441 1 Tablet(s) PO QHS 10/21/19 19 2018 Inactive This refill negates all other refills of this medication trazodone 50 mg tablet RxNorm: 026832 1 Tablet(s) PO QHS 10/21/192018 Inactive This refill negates all other refills of this medication Ventolin HFA 90 mcg/actuation aerosol inhaler RxNorm: 334145 2 Puff(s) INH QID 10/21/19 19 2018 [...] this medication Singulair 10 mg tablet RxNorm: 048740 1 Tablet(s) PO daily 10/21/19 19 2018 Inactive This refill negates all other refills of this medication buspirone 7.5 mg tablet RxNorm: 035394 1 Tablet(s) PO BID 10/21/19 19 2018 Inactive This refill negates all other refills of this medication diclofenac sodium 75 mg tablet,delayed release RxNorm: 288158 1 Tablet(s) PO BID 10/21/19 19 2018 Inactive This refill negates all other refills of this medication hydrochlorothiazide 12.5 mg tablet RxNorm: 338193 1 Tablet(s) PO QAM 10/21/19 19 2018 Inactive metoprolol succinate ER 50 mg tablet,extended release 24 hr RxNorm: 997376 1 Tablet(s) PO daily 10/21/19 19 2018 Inactive This refill negates all other refills of this medication levothyroxine 50 mcg tablet RxNorm: 207471 1 Tablet(s) PO daily 10/21/19 19 2018 Inactive This refill negates all other refills of this medication cetirizine 10 mg tablet RxNorm: 5464640 1 Tablet(s) PO daily 10/21/19 19 2018 Inactive This refill negates all other refills of this medication. Please do not auto refill Flintstones Complete (iron) 18 mg iron chewable tablet RxNorm: 1 Tablet(s) PO daily 10/21/192018 Inactive This refill negates all other refills of this medication buspirone 7.5 mg tablet RxNorm: 892380 1 Tablet(s) PO BID 10/12/192018 Inactive cetirizine 10 mg tablet RxNorm: 6630982 1 Tablet(s) PO daily 09/28/202018 Inactive Guaiasorb DM 10 mg-100 mg/5 mL oral liquid RxNorm: 321755 10 Milliliter(s) PO As needed every 4 hr 09/24/20 18 2018 Inactive Vicks Vaporub 4.7 %-1.2 %-2.6 % topical ointment RxNorm: 1910741 1 Application TOP TID 09/24/20 18 2018 Inactive levmetamfetamine 50 mg nasal inhaler RxNorm: 1 Unit(s) NASAL Q3-4H 09/24/20 18 2017 Inactive sertraline 50 mg tablet RxNorm: 685106 1 Tablet(s) PO daily 09/09/20 18 2018 Inactive Please note dose trazodone 50 mg tablet RxNorm: 687450 1 Tablet(s) PO QHS 09/06/20 18 2018 Inactive sertraline 50 mg tablet RxNorm: 422343 1 Tablet(s) PO daily 09/06/20 18 2017 Inactive amoxicillin 500 mg tablet RxNorm: 273557 1 Tablet(s) PO Q12H 08/31/20 18 2017 Inactive albuterol sulfate 2.5 mg/3 mL (0.083 %) solution for nebulization RxNorm: 081769 1 Vial INH QID 08/10/20 18 2018 Inactive 60/box. Please do not fill early. Please do not auto refill. Prozac 10 mg capsule RxNorm: 862861 1 Capsule(s) PO daily 08/09/20 18 2017 Inactive buspirone 7.5 mg tablet RxNorm: 853510 1 Tablet(s) PO BID 08/09/20 18 2018 Inactive gabapentin 300 mg capsule RxNorm: 551557 1 Capsule(s) PO TID as needed 08/01/20 18 2018 Inactive hydrochlorothiazide 12.5 mg tablet RxNorm: 610507 1 Tablet(s) PO QAM 08/01/20 18 2018 Inactive ranitidine 150 mg tablet RxNorm: 293414 1 Tablet(s) PO BID 08/01/20 18 2018 Inactive Macrobid 100 mg capsule RxNorm: 812395 1 Capsule(s) PO Q12H 06/21/20 18 2017 Inactive Singulair 10 mg tablet RxNorm: 907644 1 Tablet(s) PO daily 06/14/20 18 2018 Inactive Ventolin HFA 90 mcg/actuation aerosol inhaler RxNorm: 6157512 2 Puff(s) INH QID 06/14/20 18 2018 Inactive Singulair 10 mg tablet RxNorm: 524412 1 Tablet(s) PO daily 06/14/20 18 2017 Inactive buspirone 7.5 mg tablet RxNorm: 143009 1 Tablet(s) PO BID 06/14/20 18 2017 Inactive Prozac 10 mg capsule RxNorm: 153097 1 Capsule(s) PO daily 06/14/20 18 2017 Inactive Neilmed Pediatric Sinus Rinse Refill packet RxNorm: 1 Unit Dose NASAL PRN 05/31/20 18 2021 Inactive diclofenac sodium 75 mg tablet,delayed release RxNorm: 623643 1 Tablet(s) PO BID 05/31/20 18 2017 Inactive lisinopril 2.5 mg tablet RxNorm: 711594 1 Tablet(s) PO daily 05/31/20 18 2017 Inactive metoprolol succinate ER 50 mg tablet,extended release 24 hr RxNorm: 390396 1 Tablet(s) PO daily 05/31/20 18 2017 Inactive levothyroxine 50 mcg tablet RxNorm: 034120 1 Tablet(s) PO daily 05/31/20 18 2017 Inactive TRUEplus Lancets 30 gauge RxNorm: 1 Lancets Miscellaneous QAM 05/31/20 18 2017 Inactive 100/box Ventolin HFA 90 mcg/actuation aerosol inhaler RxNorm: 248234 2 Puff(s) INH QID 05/31/20 18 2017 Inactive Aleve 220 mg capsule RxNorm: 6474784 1 Capsule(s) PO BID 05/31/20 18 2018 Inactive ranitidine 150 mg tablet RxNorm: 980861 1 Tablet(s) PO BID 05/31/20 18 2017 Inactive gabapentin 300 mg capsule RxNorm: 573268 1 Capsule(s) PO TID as needed 05/31/20 18 2017 Inactive atorvastatin 20 mg tablet RxNorm: 397816 1 Tablet(s) PO QHS 05/31/20 18 2017 Inactive True Metrix Glucose Test Strip RxNorm: 1 Test Strips Miscellaneous QAM 05/31/20 18 2017 Inactive 50/container Calcium 600-D3 Plus 600 mg calcium-800 unit-50 mg tablet RxNorm: 1 Tablet(s) PO daily take an additonal tablet for itching. 05/31/20 18 2017 Inactive hydrochlorothiazide 12.5 mg tablet RxNorm: 760293 1 Tablet(s) PO QAM 05/31/20 18 2017 Inactive Flintstones Complete (iron) 18 mg iron chewable tablet RxNorm: 1 Tablet(s) PO daily 05/31/20 18 2017 Inactive d-mannose oral powder RxNorm: PO 18 2021 Inactive True Metrix Glucose Meter RxNorm: miscellaneous 08/17/20 19 2018 Inactive sertraline 50 mg tablet RxNorm: 139238 1 Tablet(s) PO daily 11/28/19 20 2019 Inactive loperamide 2 mg tablet RxNorm: 218658 oral 09/29/20 19 2018 Inactive Symbicort 160 mcg-4.5 mcg/actuation HFA aerosol inhaler RxNorm: 6889313 2 Puff(s) INH BID 08/17/20 19 2018 Inactive Medication Administered No Medication Administered data Procedures Procedure Codes Date [place] Fany Assessment CPT-4: DSWA 12/01 Urinalysis, dip stick CPT-4: 56665 09/24/2020 Patient Health Questionnaire CPT-4: DPHQ Electrocardiogram CPT-4: 24927 05/14/2020 Tobacco Assessment/Screening CPT-4: TCA Fall Risk Assessment SNOMED CT: 50337892 4 CPT-4: DFRA 01/01/2020 Functional Assessment CPT-4: DFA 01/01/2020 [place] Fany Assessment CPT-4: DSWA 11/04 Patient Health Questionnaire CPT-4: DPHQ [place] Fany Assessment CPT-4: DSWA 10/03 Hypertension CPT-4: HTN 10/17/2019 Fall Risk Assessment SNOMED CT: 32515410 4 CPT-4: DFRA 09/19/2019 Functional Assessment CPT-4: DFA 09/19/2019 Urinalysis, dip stick CPT-4: 94612 06/21/2019 Tobacco Assessment/Screening CPT-4: TCA Patient Health Questionnaire CPT-4: DPHQ AHA/REBECCA Classification Assessment CPT-4: DAHA 04/25/2019 Controlled Substance Report CPT-4: CTRSU 04/03 Urinalysis, dip stick CPT-4: 76177 03/28/2019 Urinalysis, dip stick CPT-4: 14373 03/28/2019 [id number] CPT-4: 26720 Unknown K5V-Dkqenrhniunretd CPT-4: 95186 Unknown Y7A-Wqgfkrwzkewbtqs CPT-4: 43386 Unknown I0N-Qyafbkdpnzosrja CPT-4: 02413 Unknown D2Q-Btdduoffpepyanf CPT-4: 83225 Unknown Z8Q-Kojvwwtkodayhux CPT-4: 51835 Unknown Gynecology Referral SNOMED CT: 825191240 CPT-4: R14 Unknown Reason For Visit No [...] Referral Initiated Referral: [facility] WPtel: [address] [place] [address] [address] [place] [address] [place] Pleating Machine Operator placed a call out to the patient to notify her that it has been recommended that she be seen by a urologist. Patient agreed to be seen, does not have a provider of choice and no transportation issues. Pleating Machine Operator faxed referral and clinical notes to [facility] in [place], [place] near the patient's home. Patient to [...] seen and prefers a provider in the [place] or [place] area. Pleating Machine Operator placed a call out to everyone listed in the area and the only location that was able to accept the patient's insurance was [place] [address] [place] [address] and spoke with Maylin. Maylin asked that the patient's referral, face sheet and visit notes be faxed to . Pleating Machine Operator faxed over requested documents. Patient appointment confirmation letter generated and mailed to her home address. Patient to call to schedule an appointment. Processed Referral: [facility] WPtel: [address] [place] [address] Patient notified that it has been advised that she be seen by Neurology. Patient agreed to be seen and prefers to be seen by a provider in the [place], [place] area. Patient denies any concerns with transportation, and prefers to schedule her own appointment. Pleating Machine Operator placed a call out to [facility] and spoke with Neeraj Mcfarland: who confirmed that their office is able to accept new patients and the patient's insurance. After confirming the providers fax number, specification writer faxed over the patient's referral, [...]
--- OUTSIDE RECORDS SUMMARY | 2023-12-07 02:15 | XMS_ITS | CCD ---
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 Salt [employer]iner Name Role Phone Palomo KING, Anna Primary Care Provider Unav ailable Unavailable Chronic Care Management Unavaila ble Summary Purpose DataExchange Insurance Providers Payer name Policy type / Coverage type Covered democrat ID Effective Begin Date Effective End Date SUKI MAYO [id number] Unknown Unknown Family history Mother Diagnosis Age [...] Unknown Disability 05/31/[address]: 729089548 Has never s moked or chewed tobacco 05/31/[address]: 156271567 Never drinks alco hol 05/31/2018 Has the patient ever used illegal drugs? Unknown Has never used illegal drugs 05/31/2018 DNR Order/ Advanced Directive Unknown Full Code 05/31/2018 Allergies, Adverse Reactions, Alerts Substance Reaction Codes Entered Date Inactivated Date Status OxyContin itch, RxNorm: 853488 01/13/2021 No Inactive Da te Active *No [...] R51 ICD-9: 784.0 10/03/2018 Inactive Other press tender long goods (current) dr sharma therapy ICD-10: Z79.899 ICD-9: V58.69 04/25/2019 Inactive Type 2 diabetes mellitus wit hout complications ICD-10: E11.9 ICD-9: 250.00 10/03/2018 Inactive Wheezing ICD-10: R06.2 ICD-9: 786.07 08/08/2018 Inactive Abnormal urine finding ICD-10: R82.90 ICD-9: 791.9 09/24/2020 Resolved Abrasion of toe ICD-10: S90.416A ICD-9: 917.0 02/14/2020 Resolved Acute upper respiratory infe ction, unspecified ICD-10: J06.9 ICD-9: 465.9 09/04/2019 Resolved [place] eye ICD-10: H10.029 ICD-9: 372.03 12/29/2019 Resolved [...] Fill Instructions levothyroxine 50 mcg tablet RxNorm: 134629 TAKE (1) TABLET BY MOUTH DAILY 02/04/20 21 2020 Inactive metformin 500 mg tablet RxNorm: 512926 1 Tablet(s) Oral two times a day take with 500mg to equal 1000mg 01/14/20 21 2020 Inactive gabapentin 300 mg capsule RxNorm: 879579 TAKE 1 CAPSULE BY MOUTH THREE TIMES A DAY 01/14/202020 Inactive lisinopril 2.5 mg tablet RxNorm: 697074 TAKE 1 TABLET BY MOUTH DAILY 01/06/20 21 2020 Inactive gabapentin 300 mg capsule RxNorm: 023567 TAKE 1 CAPSULE BY MOUTH THREE TIMES A DAY 01/06/20 21 2020 Inactive Singulair 10 mg tablet RxNorm: 613796 TAKE (1) TABLET BY MOUTH DAILY 01/06/20 21 2020 Inactive metformin 1,000 mg tablet RxNorm: 509773 1 Tablet(s) Oral two times a day 01/06/20 21 2020 Inactive atorvastatin 40 mg tablet RxNorm: 903263 1 Tablet(s) Oral every day 12/06/19 21 2020 Inactive omeprazole 20 mg capsule,delayed release RxNorm: 970193 1 Capsule(s) Oral every evening 11/24/19 21 2020 Inactive famotidine 10 mg tablet RxNorm: 708522 1 Tablet(s) Oral every morning 11/24/19 21 2020 Inactive Alcohol Prep Pads RxNorm: 810370 USE EACH MORNING 10/14/19 21 2020 Inactive omeprazole 20 mg capsule,delayed release RxNorm: 233286 1 Capsule(s) Oral two times a day 10/13/19 21 2021 Inactive omeprazole 20 mg capsule,delayed release RxNorm: 177868 TAKE 1 CAPSULE BY MOUTH EVERY DAY 10/08/192021 Inactive Macrobid 100 mg capsule RxNorm: 580730 1 Capsule(s) Oral every 12 hours with food 10/01/202020 Inactive omeprazole 20 mg capsule,delayed release RxNorm: 980694 1 Capsule(s) Oral two times a day 09/24/20 20 2021 Inactive metformin 1,000 mg tablet RxNorm: 430258 1 Tablet(s) Oral two times a day 08/19/20 20 2020 Inactive start on September 11, 2020 metformin 500 mg tablet RxNorm: 929310 1 Tablet(s) Oral two times a day take with 500mg to equal 1000mg 08/19/20 20 2019 Inactive gabapentin 300 mg capsule RxNorm: 274158 TAKE 1 CAPSULE BY MOUTH THREE TIMES DAILY 07/11/20 20 2020 Inactive cetirizine 10 mg tablet RxNorm: 0004980 TAKE (1) TABLET BY MOUTH DAILY 07/11/20 20 2020 Inactive metformin 500 mg tablet RxNorm: 490418 1 Tablet(s) Oral two times a day 07/08/20 20 2019 Inactive loperamide 2 mg tablet RxNorm: 543991 1 Tablet(s) Oral as needed take one tablet after each loose stool, maximum of 8 tablets in 24 hours 06/24/20 20 2021 Inactive Sudafed 12 Hour 120 mg tablet,extended release RxNorm: 0915480 TAKE 1 TABLET BY MOUTH EVERY 12 HOURS NEEDED 06/11/20 20 2019 Inactive hydrochlorothiazide 25 mg tablet RxNorm: 707599 TAKE (1) TABLET BY MOUTH EVERY DAY 06/11/20 20 2019 Inactive omeprazole 20 mg capsule,delayed release RxNorm: 729264 TAKE 1 CAPSULE BY MOUTH EVERY DAY 05/14/20 20 2020 Inactive metformin 500 mg tablet RxNorm: 873252 1 Tablet(s) Oral every day 05/12/20 20 2019 Inactive True Metrix Glucose Test Strip RxNorm: 1 Test Strips Miscellaneous two times a day as needed 04/17/20 No Stop Date Active metformin 500 mg tablet RxNorm: 302193 1 Tablet(s) Oral every day 04/17/20 20 2019 Inactive diclofenac sodium 75 mg tablet,delayed release RxNorm: 442398 1 Tablet(s) PO BID 04/14/20 20 2021 Inactive This refill negates all other refills of this medication Sudafed 12 Hour 120 mg tablet,extended release RxNorm: 3555825 TAKE 1 TABLET BY MOUTH EVERY 12 HOURS NEEDED 03/14/20 20 2019 Inactive True Metrix Glucose Test Strip RxNorm: 1 Test Strips Miscellaneous every morning 03/13/20 20 2019 Inactive 100/container True Metrix Glucose Test Strip RxNorm: 1 Test Strips Miscellaneous QA 02/22/20 20 2019 Inactive 100/container loperamide 2 mg tablet RxNorm: 250454 1 Tablet(s) Oral as needed take one tablet after each loose stool, maximum of 8 tablets in 24 hours 02/22/20 20 2019 Inactive cetirizine 10 mg tablet RxNorm: 2889693 1 Tablet(s) PO daily 01/17/20 20 2019 Inactive loperamide 2 mg tablet RxNorm: 910364 1 Tablet(s) Oral as needed take one tablet after each loose stool, maximum of 8 tablets in 24 hours 01/17/20 20 2019 Inactive quetiapine 100 mg tablet RxNorm: 408875 1 Tablet(s) Oral every night at bedtime 01/17/20 20 2019 Inactive levothyroxine 50 mcg tablet RxNorm: 932759 1 Tablet(s) PO daily 01/17/20 20 2020 Inactive gabapentin 300 mg capsule RxNorm: 338613 1 Capsule(s) PO TID 01/17/20 20 2019 Inactive levothyroxine 50 mcg tablet RxNorm: 873657 1 Tablet(s) PO daily 01/15/20 20 2019 Inactive lisinopril 2.5 mg tablet RxNorm: 550542 1 Tablet(s) PO daily 01/15/20 20 2020 Inactive gabapentin 300 mg capsule RxNorm: 665551 1 Capsule(s) PO TID 01/15/20 20 2019 Inactive cetirizine 10 mg tablet RxNorm: 4747995 1 Tablet(s) PO daily 01/15/20 20 2019 Inactive Singulair 10 mg tablet RxNorm: 654256 1 Tablet(s) PO daily 01/15/20 20 2020 Inactive gentamicin 0.3 % eye drops RxNorm: 571506 1 Drop(s) ophthalmic (eye) four times a day 12/29/19 20 2019 Inactive gentamicin 0.3 % eye drops RxNorm: 818994 1 Drop(s) ophthalmic (eye) four times a day 12/29/19 20 2019 Inactive gentamicin 0.3 % eye drops RxNorm: 812864 1 Drop(s) ophthalmic (eye) four times a day 12/29/19 20 2019 Inactive hydrochlorothiazide 25 mg tablet RxNorm: 668638 1 Tablet(s) Oral every day 12/21/19 20 2019 Inactive Sudafed 12 Hour 120 mg tablet,extended release RxNorm: 3811441 TAKE (1) TABLET BY MOUTH EVERY 12 HOURS NEEDED 12/21/19 20 2019 Inactive loperamide 2 mg tablet RxNorm: 670999 1 Tablet(s) Oral as needed take one tablet after each loose stool, maximum of 8 tablets in 24 hours 12/11/19 20 2019 Inactive loperamide 2 mg tablet RxNorm: 006554 1 Tablet(s) Oral as needed take one tablet after each loose stool, maximum of 8 tablets in 24 hours 12/11/19 20 2019 Inactive atorvastatin 40 mg tablet RxNorm: 597561 1 Tablet(s) Oral every day 11/29/19 20 2020 Inactive quetiapine 100 mg tablet RxNorm: 442925 1 Tablet(s) Oral every night at bedtime 11/28/19 20 2019 Inactive sertraline 100 mg tablet RxNorm: 147095 1 Tablet(s) Oral 11/28/19 20 2019 Inactive omeprazole 20 mg capsule,delayed release RxNorm: 566076 1 Capsule(s) Oral every day 11/20/19 20 2019 Inactive amoxicillin 250 mg capsule RxNorm: 432126 1 Capsule(s) Oral three times a day 11/07/19 20 2019 Inactive multivitamin with iron-mineral tablet RxNorm: 1 Tablet(s) Oral every day 10/29/19 20 2021 Inactive cetirizine 10 mg tablet RxNorm: 9261055 1 Tablet(s) PO daily 10/20/19 20 2019 Inactive This refill negates all other refills of this medication. Please do not auto refill Singulair 10 mg tablet RxNorm: 244712 1 Tablet(s) PO daily 10/20/19 20 2019 Inactive This refill negates all other refills of this medication gabapentin 300 mg capsule RxNorm: 893549 1 Capsule(s) PO TID 10/20/19 20 2019 Inactive lisinopril 2.5 mg tablet RxNorm: 175000 1 Tablet(s) PO daily 10/20/19 20 2019 Inactive levothyroxine 50 mcg tablet RxNorm: 853709 1 Tablet(s) PO daily 10/20/19 20 2019 Inactive This refill negates all other refills of this medication fenugreek seed extract 500 mg capsule RxNorm: 1 Capsule(s) Oral three times a day 10/17/19 20 2021 Inactive hydrochlorothiazide 25 mg tablet RxNorm: 243941 1 Tablet(s) Oral every day 10/17/19 20 2019 Inactive Alcohol Prep Pads RxNorm: 243139 1 Patch TOP QAM 10/16/19 20 2020 Inactive loperamide 2 mg tablet RxNorm: 872147 1 Tablet(s) Oral as needed take one [...] 2019 Inactive hydrochlorothiazide 25 mg tablet RxNorm: 818868 1 Tablet(s) Oral every day 09/19/202019 Inactive Sudafed 12 Hour 120 mg tablet,extended release RxNorm: 2177177 1 Tablet(s) Oral every 12 hours as needed 09/11/20 19 2018 Inactive omeprazole 20 mg capsule,delayed release RxNorm: 190254 1 Capsule(s) Oral every day 09/07/20 19 2019 Inactive Sudafed 12 Hour 120 mg tablet,extended release RxNorm: 2312941 1 Tablet(s) Oral every 12 hours as needed 09/04/20 19 2018 Inactive pantoprazole 40 mg tablet,delayed release RxNorm: 691837 1 Tablet(s) Oral every day 08/24/20 19 2018 Inactive discontinue any other H2Blkr. and PPI albuterol sulfate 2.5 mg/3 mL (0.083 %) solution for nebulization RxNorm: 228503 1 Vial Inhalation every four hours as needed as needed for dyspnea 08/17/202019 Inactive 60/box. This refill negates all other refills of this medication. Please do not fill early. Please do not auto refill. Symbicort 160 mcg-4.5 mcg/actuation HFA aerosol inhaler RxNorm: 8678425 2 Puff(s) INH BID 08/17/20 No Stop Date Active Alcohol Prep Pads RxNorm: 922404 1 Patch TOP QAM 08/17/20 19 2019 Inactive Ventolin HFA 90 mcg/actuation aerosol inhaler RxNorm: 044764 2 Puff(s) INH QID 08/09/20 19 2019 Inactive Please do not fill early. Please do not auto refill. This refill negates all other refills of this medication True Metrix Glucose Test Strip RxNorm: 1 Test Strips Miscellaneous QAM 08/09/20 19 2019 Inactive 100/container atorvastatin 40 mg tablet RxNorm: 787571 1 Tablet(s) Oral every day 07/04/20 19 2019 Inactive levmetamfetamine 50 mg nasal inhaler RxNorm: 1 Unit(s) NASAL Q3-4H Do not use more than every 3 hours or 8 times/24hours 06/26/20 19 2021 Inactive Please do not auto refill. This refill negates all other refills of this medication buspirone 7.5 mg tablet RxNorm: 835197 1 Tablet(s) PO BID 06/26/20 19 2020 Inactive This refill negates all other refills of this medication hydrochlorothiazide 12.5 mg tablet RxNorm: 851133 1 Tablet(s) PO QAM 06/26/20 19 2019 Inactive Ventolin HFA 90 mcg/actuation aerosol inhaler RxNorm: 254457 2 Puff(s) INH QID 06/26/20 19 2018 Inactive Please do not fill early. Please do not auto refill. This refill negates all other refills of this medication Singulair 10 mg tablet RxNorm: 801280 1 Tablet(s) PO daily 06/26/20 19 2019 Inactive This refill negates all other refills of this medication cetirizine 10 mg tablet RxNorm: 3704567 1 Tablet(s) PO daily 06/26/20 19 2019 Inactive This refill negates all other refills of this medication. Please do not auto refill levothyroxine 50 mcg tablet RxNorm: 122540 1 Tablet(s) PO daily 06/26/20 19 2019 Inactive This refill negates all other refills of this medication diclofenac sodium 75 mg tablet,delayed release RxNorm: 159705 1 Tablet(s) PO BID 06/26/20 19 2019 Inactive This refill negates all other refills of this medication ranitidine 150 mg tablet RxNorm: 504329 1 Tablet(s) PO BID 06/26/20 19 2018 Inactive This refill negates all other refills of this medication Calcium 600-D3 Plus (mag-zinc) 600 mg calcium-800 unit-50 mg tablet RxNorm: 1 Tablet(s) PO daily take an additonal tablet for itching. 06/26/20 19 2018 Inactive This refill negates all other refills of this medication albuterol sulfate 2.5 mg/3 mL (0.083 %) solution for nebulization RxNorm: 884752 1 Vial INH QID 06/26/20 19 2018 Inactive 60/box. This refill negates all other refills of this medication. Please do not fill early. Please do not auto refill. lisinopril 2.5 mg tablet RxNorm: 647619 1 Tablet(s) PO daily 06/21/20 19 2019 Inactive gabapentin 300 mg capsule RxNorm: 051389 1 Capsule(s) PO TID 06/21/20 19 2019 Inactive atorvastatin 20 mg tablet RxNorm: 152949 1 Tablet(s) PO QHS 06/07/20 19 2018 Inactive This refill negates all other refills of this medication TRUEplus Lancets 30 gauge RxNorm: 1 Lancets Miscellaneous QAM 05/29/20 19 2018 Inactive 100/box gabapentin 300 mg capsule RxNorm: 070344 1 Capsule(s) PO TID 05/03/20 19 2018 Inactive Flintstones Complete (iron) 18 mg iron chewable tablet RxNorm: 1 Tablet(s) PO daily 04/04/20 19 2021 Inactive This refill negates all other refills of this medication gabapentin 300 mg capsule RxNorm: 648383 1 Capsule(s) PO TID as needed 02/01/20 19 2018 Inactive True Metrix Glucose Test Strip RxNorm: 1 Test Strips Miscellaneous QAM 02/01/20 19 2018 Inactive 100/container Alcohol Prep Pads RxNorm: 424583 1 Patch TOP QA 02/01/20 19 2018 Inactive TRUEplus Lancets 30 gauge RxNorm: 1 Lancets Miscellaneous QAM 02/01/20 19 2018 Inactive 100/box lisinopril 2.5 mg tablet RxNorm: 466158 1 Tablet(s) PO daily 12/28/19 19 2018 Inactive ranitidine 150 mg tablet RxNorm: 369600 1 Tablet(s) PO BID 10/21/19 19 2018 Inactive This refill negates all other refills of this medication albuterol sulfate 2.5 mg/3 mL (0.083 %) solution for nebulization RxNorm: 607536 1 Vial INH QID 10/21/19 19 2018 [...] this medication gabapentin 300 mg capsule RxNorm: 740108 1 Capsule(s) PO TID as needed 10/21/19 19 2018 Inactive atorvastatin 20 mg tablet RxNorm: 937947 1 Tablet(s) PO QHS 10/21/19 19 2018 Inactive This refill negates all other refills of this medication trazodone 50 mg tablet RxNorm: 880383 1 Tablet(s) PO QHS 10/21/19 19 2018 Inactive This refill negates all other refills of this medication Ventolin HFA 90 mcg/actuation aerosol inhaler RxNorm: 722609 2 Puff(s) INH QID 10/21/19 19 2018 Inactive Please do not fill early. Please do not auto refill. This refill negates all other refills of this medication Calcium 600-D3 Plus 600 mg calcium-800 unit-50 mg tablet RxNorm: 1 Tablet(s) PO daily take an additonal tablet for itching. 10/21/192018 Inactive This refill negates all other refills of this medication Singulair 10 mg tablet RxNorm: 374004 1 Tablet(s) PO daily 10/21/192018 Inactive This refill negates all other refills of this medication buspirone 7.5 mg tablet RxNorm: 505077 1 Tablet(s) PO BID 10/21/192018 Inactive This refill negates all other refills of this medication diclofenac sodium 75 mg tablet,delayed release RxNorm: 570012 1 Tablet(s) PO BID 10/21/192018 Inactive This refill negates all other refills of this medication hydrochlorothiazide 12.5 mg tablet RxNorm: 422412 1 Tablet(s) PO QAM 10/21/192018 Inactive metoprolol succinate ER 50 mg tablet,extended release 24 hr RxNorm: 389959 1 Tablet(s) PO daily 10/21/19 19 2018 Inactive This refill negates all other refills of this medication levothyroxine 50 mcg tablet RxNorm: 274981 1 Tablet(s) PO daily 10/21/192018 Inactive This refill negates all other refills of this medication cetirizine 10 mg tablet RxNorm: 2305659 1 Tablet(s) PO daily 10/21/19 19 2018 Inactive This refill negates all other refills of this medication. Please do not auto refill Flintstones Complete (iron) 18 mg iron chewable tablet RxNorm: 1 Tablet(s) PO daily 10/21/19 19 2018 Inactive This refill negates all other refills of this medication buspirone 7.5 mg tablet RxNorm: 803727 1 Tablet(s) PO BID 10/12/19 19 2018 Inactive cetirizine 10 mg tablet RxNorm: 5541409 1 Tablet(s) PO daily 09/28/20 18 2018 Inactive Guaiasorb DM 10 mg-100 mg/5 mL oral liquid RxNorm: 746149 10 Milliliter(s) PO As needed every 4 hr 09/24/20 18 2018 Inactive Vicks Vaporub 4.7 %-1.2 %-2.6 % topical ointment RxNorm: 7140774 1 Application TOP TID 09/24/20 18 2018 Inactive levmetamfetamine 50 mg nasal inhaler RxNorm: 1 Unit(s) NASAL Q3-4H 09/24/20 18 2017 Inactive sertraline 50 mg tablet RxNorm: 409935 1 Tablet(s) PO daily 09/09/20 18 2018 Inactive Please note dose trazodone 50 mg tablet RxNorm: 403618 1 Tablet(s) PO QHS 09/06/20 18 2018 Inactive sertraline 50 mg tablet RxNorm: 012536 1 Tablet(s) PO daily 09/06/20 18 2017 Inactive amoxicillin 500 mg tablet RxNorm: 078335 1 Tablet(s) PO Q12H 08/31/20 18 2017 Inactive albuterol sulfate 2.5 mg/3 mL (0.083 %) solution for nebulization RxNorm: 476689 1 Vial INH QID 08/10/20 18 2018 Inactive 60/box. Please do not fill early. Please do not auto refill. Prozac 10 mg capsule RxNorm: 387074 1 Capsule(s) PO daily 08/09/20 18 2017 Inactive buspirone 7.5 mg tablet RxNorm: 195960 1 Tablet(s) PO BID 08/09/20 18 2018 Inactive gabapentin 300 mg capsule RxNorm: 246201 1 Capsule(s) PO TID as needed 08/01/20 18 2018 Inactive hydrochlorothiazide 12.5 mg tablet RxNorm: 833617 1 Tablet(s) PO QAM 08/01/20 18 2018 Inactive ranitidine 150 mg tablet RxNorm: 428037 1 Tablet(s) PO BID 08/01/20 18 2018 Inactive Macrobid 100 mg capsule RxNorm: 042080 1 Capsule(s) PO Q12H 06/21/20 18 2017 Inactive Singulair 10 mg tablet RxNorm: 835560 1 Tablet(s) PO daily 06/14/20 18 2018 Inactive Ventolin HFA 90 mcg/actuation aerosol inhaler RxNorm: 7992529 2 Puff(s) INH QID 06/14/20 18 2018 Inactive Singulair 10 mg tablet RxNorm: 164102 1 Tablet(s) PO daily 06/14/20 18 2017 Inactive buspirone 7.5 mg tablet RxNorm: 849569 1 Tablet(s) PO BID 06/14/20 18 2017 Inactive Prozac 10 mg capsule RxNorm: 021931 1 Capsule(s) PO daily 06/14/20 18 2017 Inactive Neilmed Pediatric Sinus Rinse Refill packet RxNorm: 1 Unit Dose NASAL PRN 05/31/20 18 2021 Inactive diclofenac sodium 75 mg tablet,delayed release RxNorm: 525982 1 Tablet(s) PO BID 05/31/20 18 2017 Inactive lisinopril 2.5 mg tablet RxNorm: 233753 1 Tablet(s) PO daily 05/31/20 18 2017 Inactive metoprolol succinate ER 50 mg tablet,extended release 24 hr RxNorm: 801658 1 Tablet(s) PO daily 05/31/20 18 2017 Inactive levothyroxine 50 mcg tablet RxNorm: 940617 1 Tablet(s) PO daily 05/31/20 18 2017 Inactive TRUEplus Lancets 30 gauge RxNorm: 1 Lancets Miscellaneous QAM 05/31/20 18 2017 Inactive 100/box Ventolin HFA 90 mcg/actuation aerosol inhaler RxNorm: 559299 2 Puff(s) INH QID 05/31/20 18 2017 Inactive Aleve 220 mg capsule RxNorm: 8713153 1 Capsule(s) PO BID 05/31/20 18 2018 Inactive ranitidine 150 mg tablet RxNorm: 264913 1 Tablet(s) PO BID 05/31/20 18 2017 Inactive gabapentin 300 mg capsule RxNorm: 669338 1 Capsule(s) PO TID as needed 05/31/20 18 2017 Inactive atorvastatin 20 mg tablet RxNorm: 562468 1 Tablet(s) PO QHS 05/31/20 18 2017 Inactive True Metrix Glucose Test Strip RxNorm: 1 Test Strips Miscellaneous QAM 05/31/20 18 2017 Inactive 50/container Calcium 600-D3 Plus 600 mg calcium-800 unit-50 mg tablet RxNorm: 1 Tablet(s) PO daily take an additonal tablet for itching. 05/31/20 18 2017 Inactive hydrochlorothiazide 12.5 mg tablet RxNorm: 259001 1 Tablet(s) PO QAM 05/31/20 18 2017 Inactive Flintstones Complete (iron) 18 mg iron chewable tablet RxNorm: 1 Tablet(s) PO daily 05/31/20 18 2017 Inactive d-mannose oral powder RxNorm: PO 18 2021 Inactive True Metrix Glucose Meter RxNorm: miscellaneous 08/17/20 19 2018 Inactive sertraline 50 mg tablet RxNorm: 031023 1 Tablet(s) PO daily 11/28/19 20 2019 Inactive loperamide 2 mg tablet RxNorm: 548457 oral 12/28/2018 Inactive Symbicort 160 mcg-4.5 mcg/actuation HFA aerosol inhaler RxNorm: 2604392 2 Puff(s) INH BID 08/17/20 19 2018 Inactive Medication Administered No Medication Administered data Procedures Procedure Codes Date Mini Mental State Exam CPT-4: DMMA 1 Annual Wellness Visit (Subsequent Visit) CPT-4: G0439 01/13/2021 Advanced Care Planning CPT-4: VACP 1 Fall Risk Assessment SNOMED CT: 90119385 4 CPT-4: DFRA 01/13/2021 [place] Assessment CPT-4: DSWA 12/01 Urinalysis, dip stick CPT-4: 63481 09/24/2020 Patient Health Questionnaire CPT-4: DPHQ Electrocardiogram CPT-4: 25550 05/14/2020 Tobacco Assessment/Screening CPT-4: TCA Fall Risk Assessment SNOMED CT: 55611299 4 CPT-4: DFRA 01/01/2020 Functional Assessment CPT-4: DFA 01/01/2020 [place] Assessment CPT-4: DSWA 11/04 Patient Health Questionnaire CPT-4: DPHQ [place] Assessment CPT-4: DSWA 10/03 Hypertension CPT-4: HTN 10/17/2019 Fall Risk Assessment SNOMED CT: 20290389 4 CPT-4: DFRA 09/19/2019 Functional Assessment CPT-4: DFA 09/19/2019 Urinalysis, dip stick CPT-4: 72542 06/21/2019 Tobacco Assessment/Screening CPT-4: TCA Patient Health Questionnaire CPT-4: DPHQ AHA/REBECCA Classification Assessment CPT-4: DAHA 04/25/2019 Controlled Substance Report CPT-4: CTRSU 04/03 Urinalysis, dip stick CPT-4: 88796 03/28/2019 Urinalysis, dip stick CPT-4: 13349 03/28/2019 W2N-Nrjjlhdeharmqal CPT-4: 18628 Unknown X1N-Drmenukvtangspp CPT-4: 72864 Unknown R3N-Czgpmqrklpodtar CPT-4: 15797 Unknown S1F-Ohfpohgqptsoeeh CPT-4: 13066 Unknown D4J-Pzgtnipaevotxuo CPT-4: 66096 Unknown A5F-Wtzhjjfyhrdybck CPT-4: 89495 Unknown C3Y-Wvzskeismykjggd CPT-4: 65759 Unknown Gynecology Referral SNOMED CT: 053067462 CPT-4: R14 Unknown Reason For Visit No Reason For Visit data Plan of Care Planned Activity Notes Codes Status Date Referral: Pending Gynecology Referral Information Referral Processed Referral: Pending Pulmonolog y Referral Information Referral Processed Referral: Pending Psychiatry Referral Information Referral Initiated Referral: Pending Respirator y Services Referral Information Referral Initiated Referral: Pending Ophthalmol ogy Referral Information Referral Initiated Referral: [facility] WPtel: [address] [place] [address] [address] Director Economic placed a call out to the patient to notify her that it has been recommended that she be seen by a urologist. Patient agreed to be seen, does not have a provider of choice and no transportation issues. Director Economic faxed referral and clinical notes to [facility] in [place], [place] near the patient's home. Patient to [...] seen and prefers a provider in the [place] or [facility]. Director Economic placed a call out to everyone listed in the area and the only location that was able to accept the patient's insurance was [place] [address] [place] [address] and spoke with Maylin. Maylin asked that the patient's referral, face sheet and visit notes be faxed to . Director Economic faxed over requested documents. Patient appointment confirmation letter generated and mailed to her home address. Patient to call to schedule an appointment. Processed Referral: [facility] WPtel: [address] [place] [address] [place], [place] [id number] Patient notified that it has been advised that she be seen by Neurology. Patient agreed to be seen and prefers to be seen by a provider in the [place], [place] area. Patient denies any concerns with transportation, and prefers to schedule her own appointment. Director Economic placed a call out to [facility] [...]
--- OUTSIDE RECORDS SUMMARY | 2023-12-07 02:15 | XMS_ITS | CCD ---
Author Name Leena Culver NP Address [id number] [place] [address] [address] [place] [address] Phone Organization [employer] [facility] Phone Care Team Providers Care Match Marker Name Role Phone Anna Culver NP Primary Care Provider Unav ailable Unavailable Chronic Care Management Unavaila ble Summary Purpose DataExchange Insurance Providers Payer name Policy type / Coverage type Covered alliance party ID Effective Begin Date Effective End Date SUKI MAYO [id number] Unknown Unknown Family history Mother Diagnosis Age [...] Unknown Disability 05/31/[address]: 612294462 Has never s moked or chewed tobacco 05/31/[address]: 807753723 Never drinks alco hol 05/31/2018 Has the patient ever used illegal drugs? Unknown Has never used illegal drugs 05/31/2018 DNR Order/ Advanced Directive Unknown Full Code 05/31/2018 Allergies, Adverse Reactions, Alerts Substance Reaction Codes Entered Date Inactivated Date Status OxyContin itch, RxNorm: 388302 01/13/2021 No Inactive Da te Active *No known food allergies Unknown 09/06/2018 No I nactive Date Active Methylprednisolone hives RxNorm: 6902 09/06/2018 No Inac tive Date Active Problems Condition Codes Effective Dates Condition St atus (Z00.01-V70.0) Encounter for general adult medical examination with abnormal findings ICD-10: Z00.01 ICD-9: V70.0 01/13/2021 Active (Z13.31-V79.0) Encounter for screening for depression ICD-10: Z13.31 ICD-9: V79.0 01/13/2021 Active Chronic kidney disease, stag e 2 (mild) ICD-10: N18.2 ICD-9: 585.2 10/29/2020 Active History of bladder surgery ICD-10: Z98.8 [...] 10/03/2018 Inactive Other skilled nursing (current) dr sharma therapy ICD-10: Z79.899 ICD-9: V58.69 04/25/2019 Inactive Type 2 diabetes mellitus wit hout complications ICD-10: E11.9 ICD-9: 250.00 10/03/2018 Inactive Wheezing ICD-10: R06.2 ICD-9: 786.07 08/08/2018 Inactive Abnormal urine finding ICD-10: R82.90 ICD-9: 791.9 09/24/2020 Resolved Abrasion of toe ICD-10: S90.416A ICD-9: 917.0 02/14/2020 Resolved Acute upper respiratory infe ction, unspecified ICD-10: J06.9 ICD-9: 465.9 09/04/2019 Resolved [place] eye ICD-10: H10.029 ICD-9: 372.03 12/29/2019 Resolved Right wrist pain ICD-10: M25.531 ICD-9: 719.43 05/14/2020 Resolved Sinusitis ICD-10: J32.9 ICD-9: 473.9 11/07/2019 Resolved Superficial burn of multiple sites of right hand, subsequent encounter ICD-10: T23.191D ICD-9: V58.89 11/28/2020 Resolved Urinary tract infection ICD-10: N39.0 ICD-9: 599.0 10/01/2020 Resolved GERD (gastroesophageal reflu x disease) ICD-10: K21.9 [...] unspecified ICD-10: R60.9 ICD-9: 782.3 07/11/2018 Active 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-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 anti-inflammatories (NSAID) ICD-10: Z79.1 ICD-9: V58.64 06/13/2018 Active Medications Medication Codes Instructions Start Date Stop Date Status Fill Instructions metformin 500 mg tablet RxNorm: 768031 1 Tablet(s) Oral two times a day take with 500mg to equal 1000mg 01/14/20 21 2020 Inactive gabapentin 300 mg capsule RxNorm: 852678 TAKE 1 CAPSULE BY MOUTH THREE TIMES A DAY 01/14/202020 Inactive gabapentin 300 mg capsule RxNorm: 886132 TAKE 1 CAPSULE BY MOUTH THREE TIMES A DAY 01/06/2001/13/ 2021 Inactive lisinopril 2.5 mg tablet RxNorm: 612182 TAKE 1 TABLET BY MOUTH DAILY 01/06/20 21 2020 Inactive Singulair 10 mg tablet RxNorm: 872858 TAKE (1) TABLET BY MOUTH DAILY 01/06/20 21 2020 Inactive metformin 1,000 mg tablet RxNorm: 598430 1 Tablet(s) Oral two times a day 01/06/20 21 2020 Inactive atorvastatin 40 mg tablet RxNorm: 420345 1 Tablet(s) Oral every day 12/06/19 21 2020 Inactive omeprazole 20 mg capsule,delayed release RxNorm: 041573 1 Capsule(s) Oral every evening 11/24/19 21 2020 Inactive famotidine 10 mg tablet RxNorm: 148911 1 Tablet(s) Oral every morning 11/24/19 21 2020 Inactive Alcohol Prep Pads RxNorm: 681119 USE EACH MORNING 10/14/19 21 2020 Inactive omeprazole 20 mg capsule,delayed release RxNorm: 314775 1 Capsule(s) Oral two times a day 10/13/19 21 2021 Inactive omeprazole 20 mg capsule,delayed release RxNorm: 135199 TAKE 1 CAPSULE BY MOUTH EVERY DAY 10/08/19 21 2021 Inactive Macrobid 100 mg capsule RxNorm: 633133 1 Capsule(s) Oral every 12 hours with food 10/01/20 20 2020 Inactive omeprazole 20 mg capsule,delayed release RxNorm: 810413 1 Capsule(s) Oral two times a day 09/24/20 20 2021 Inactive metformin 1,000 mg tablet RxNorm: 627235 1 Tablet(s) Oral two times a day 08/19/20 20 2020 Inactive start on September 11, 2020 metformin 500 mg tablet RxNorm: 653138 1 Tablet(s) Oral two times a day take with 500mg to equal 1000mg 08/19/20 20 2019 Inactive gabapentin 300 mg capsule RxNorm: 592015 TAKE 1 CAPSULE BY MOUTH THREE TIMES DAILY 07/11/20 20 2020 Inactive cetirizine 10 mg tablet RxNorm: 2641506 TAKE (1) TABLET BY MOUTH DAILY 07/11/20 20 2020 Inactive metformin 500 mg tablet RxNorm: 891189 1 Tablet(s) Oral two times a day 07/08/20 20 2019 Inactive loperamide 2 mg tablet RxNorm: 680970 1 Tablet(s) Oral as needed take one tablet after each loose stool, maximum of 8 tablets in 24 hours 06/24/20 20 2021 Inactive Sudafed 12 Hour 120 mg tablet,extended release RxNorm: 6817320 TAKE 1 TABLET BY MOUTH EVERY 12 HOURS NEEDED 06/11/20 20 2019 Inactive hydrochlorothiazide 25 mg tablet RxNorm: 456472 TAKE (1) TABLET BY MOUTH EVERY DAY 06/11/20 20 2019 Inactive omeprazole 20 mg capsule,delayed release RxNorm: 925985 TAKE 1 CAPSULE BY MOUTH EVERY DAY 05/14/20 20 2020 Inactive metformin 500 mg tablet RxNorm: 995109 1 Tablet(s) Oral every day 05/12/20 20 2019 Inactive True Metrix Glucose Test Strip RxNorm: 1 Test Strips Miscellaneous two times a day as needed 04/17/20 No Stop Date Active metformin 500 mg tablet RxNorm: 221650 1 Tablet(s) Oral every day 04/17/20 20 2019 Inactive diclofenac sodium 75 mg tablet,delayed release RxNorm: 521202 1 Tablet(s) PO BID 04/14/20 20 2021 Inactive This refill negates all other refills of this medication Sudafed 12 Hour 120 mg tablet,extended release RxNorm: 5437541 TAKE 1 TABLET BY MOUTH EVERY 12 HOURS NEEDED 03/14/20 20 2019 Inactive True Metrix Glucose Test Strip RxNorm: 1 Test Strips Miscellaneous every morning 03/13/20 20 2019 Inactive 100/container True Metrix Glucose Test Strip RxNorm: 1 Test Strips Miscellaneous QAM 02/22/20 20 2019 Inactive 100/container loperamide 2 mg tablet RxNorm: 640550 1 Tablet(s) Oral as needed take one tablet after each loose stool, maximum of 8 tablets in 24 hours 02/22/20 20 2019 Inactive levothyroxine 50 mcg tablet RxNorm: 297990 1 Tablet(s) PO daily 01/17/20 20 2020 Inactive cetirizine 10 mg tablet RxNorm: 7921295 1 Tablet(s) PO daily 01/17/20 20 2019 Inactive loperamide 2 mg tablet RxNorm: 522796 1 Tablet(s) Oral as needed take one tablet after each loose stool, maximum of 8 tablets in 24 hours 01/17/20 20 2019 Inactive quetiapine 100 mg tablet RxNorm: 102422 1 Tablet(s) Oral every night at bedtime 01/17/20 20 2019 Inactive gabapentin 300 mg capsule RxNorm: 995826 1 Capsule(s) PO TID 01/17/20 20 2019 Inactive levothyroxine 50 mcg tablet RxNorm: 849681 1 Tablet(s) PO daily 01/15/20 20 2019 Inactive lisinopril 2.5 mg tablet RxNorm: 923659 1 Tablet(s) PO daily 01/15/20 20 2020 Inactive gabapentin 300 mg capsule RxNorm: 205539 1 Capsule(s) PO TID 01/15/20 20 2019 Inactive cetirizine 10 mg tablet RxNorm: 5149294 1 Tablet(s) PO daily 01/15/20 20 2019 Inactive Singulair 10 mg tablet RxNorm: 346095 1 Tablet(s) PO daily 01/15/20 20 2020 Inactive gentamicin 0.3 % eye drops RxNorm: 429539 1 Drop(s) ophthalmic (eye) four times a day 12/29/19 20 2019 Inactive gentamicin 0.3 % eye drops RxNorm: 396370 1 Drop(s) ophthalmic (eye) four times a day 12/29/19 20 2019 Inactive gentamicin 0.3 % eye drops RxNorm: 632816 1 Drop(s) ophthalmic (eye) four times a day 12/29/19 20 2019 Inactive hydrochlorothiazide 25 mg tablet RxNorm: 108339 1 Tablet(s) Oral every day 12/21/19 20 2019 Inactive Sudafed 12 Hour 120 mg tablet,extended release RxNorm: 5796167 TAKE (1) TABLET BY MOUTH EVERY 12 HOURS NEEDED 12/21/19 20 2019 Inactive loperamide 2 mg tablet RxNorm: 612358 1 Tablet(s) Oral as needed take one tablet after each loose stool, maximum of 8 tablets in 24 hours 12/11/19 20 2019 Inactive loperamide 2 mg tablet RxNorm: 498821 1 Tablet(s) Oral as needed take one tablet after each loose stool, maximum of 8 tablets in 24 hours 12/11/19 20 2019 Inactive atorvastatin 40 mg tablet RxNorm: 713927 1 Tablet(s) Oral every day 11/29/19 20 2020 Inactive quetiapine 100 mg tablet RxNorm: 833102 1 Tablet(s) Oral every night at bedtime 11/28/19 20 2019 Inactive sertraline 100 mg tablet RxNorm: 858330 1 Tablet(s) Oral 11/28/19 20 2019 Inactive omeprazole 20 mg capsule,delayed release RxNorm: 133619 1 Capsule(s) Oral every day 11/20/19 20 2019 Inactive amoxicillin 250 mg capsule RxNorm: 071377 1 Capsule(s) Oral three times a day 11/07/19 20 2019 Inactive multivitamin with iron-mineral tablet RxNorm: 1 Tablet(s) Oral every day 10/29/19 20 2021 Inactive cetirizine 10 mg tablet RxNorm: 2060587 1 Tablet(s) PO daily 10/20/192019 Inactive This refill negates all other refills of this medication. Please do not auto refill Singulair 10 mg tablet RxNorm: 354646 1 Tablet(s) PO daily 10/20/19 20 2019 Inactive This refill negates all other refills of this medication gabapentin 300 mg capsule RxNorm: 626747 1 Capsule(s) PO TID 10/20/19 20 2019 Inactive lisinopril 2.5 mg tablet RxNorm: 292360 1 Tablet(s) PO daily 10/20/19 20 2019 Inactive levothyroxine 50 mcg tablet RxNorm: 856291 1 Tablet(s) PO daily 10/20/19 20 2019 Inactive This refill negates all other refills of this medication fenugreek seed extract 500 mg capsule RxNorm: 1 Capsule(s) Oral three times a day 10/17/19 20 2021 Inactive hydrochlorothiazide 25 mg tablet RxNorm: 525471 1 Tablet(s) Oral every day 10/17/19 20 2019 Inactive Alcohol Prep Pads RxNorm: 932824 1 Patch TOP QAM 10/16/19 20 2020 Inactive loperamide 2 mg tablet RxNorm: 425766 1 Tablet(s) Oral as needed take one [...] 09/19/202019 Inactive hydrochlorothiazide 25 mg tablet RxNorm: 477476 1 Tablet(s) Oral every day 09/19/202019 Inactive Sudafed 12 Hour 120 mg tablet,extended release RxNorm: 2661638 1 Tablet(s) Oral every 12 hours as needed 09/11/202018 Inactive omeprazole 20 mg capsule,delayed release RxNorm: 277629 1 Capsule(s) Oral every day 09/07/20 19 2019 Inactive Sudafed 12 Hour 120 mg tablet,extended release RxNorm: 4753720 1 Tablet(s) Oral every 12 hours as needed 09/04/20 19 2018 Inactive pantoprazole 40 mg tablet,delayed release RxNorm: 019134 1 Tablet(s) Oral every day 08/24/20 19 2018 Inactive discontinue any other H2Blkr. and PPI albuterol sulfate 2.5 mg/3 mL (0.083 %) solution for nebulization RxNorm: 854683 1 Vial Inhalation every four hours as needed as needed for dyspnea 08/17/20 19 2019 Inactive 60/box. This refill negates all other refills of this medication. Please do not fill early. Please do not auto refill. Symbicort 160 mcg-4.5 mcg/actuation HFA aerosol inhaler RxNorm: 8139801 2 Puff(s) INH BID 08/17/20 No Stop Date Active Alcohol Prep Pads RxNorm: 443712 1 Patch TOP QAM 08/17/20 19 2019 Inactive Ventolin HFA 90 mcg/actuation aerosol inhaler RxNorm: 928918 2 Puff(s) INH QID 08/09/202019 Inactive Please do not fill early. Please do not auto refill. This refill negates all other refills of this medication True Metrix Glucose Test Strip RxNorm: 1 Test Strips Miscellaneous QAM 08/09/20 19 2019 Inactive 100/container atorvastatin 40 mg tablet RxNorm: 898815 1 Tablet(s) Oral every day 07/04/20 19 2019 Inactive levmetamfetamine 50 mg nasal inhaler RxNorm: 1 Unit(s) NASAL Q3-4H Do not use more than every 3 hours or 8 times/24hours 06/26/20 19 2021 Inactive Please do not auto refill. This refill negates all other refills of this medication buspirone 7.5 mg tablet RxNorm: 980281 1 Tablet(s) PO BID 06/26/20 19 2020 Inactive This refill negates all other refills of this medication hydrochlorothiazide 12.5 mg tablet RxNorm: 999020 1 Tablet(s) PO QAM 06/26/20 19 2019 Inactive Ventolin HFA 90 mcg/actuation aerosol inhaler RxNorm: 987129 2 Puff(s) INH QID 06/26/20 19 2018 Inactive Please do not fill early. Please do not auto refill. This refill negates all other refills of this medication Singulair 10 mg tablet RxNorm: 187079 1 Tablet(s) PO daily 06/26/20 19 2019 Inactive This refill negates all other refills of this medication cetirizine 10 mg tablet RxNorm: 1064355 1 Tablet(s) PO daily 06/26/20 19 2019 Inactive This refill negates all other refills of this medication. Please do not auto refill levothyroxine 50 mcg tablet RxNorm: 327618 1 Tablet(s) PO daily 06/26/20 19 2019 Inactive This refill negates all other refills of this medication diclofenac sodium 75 mg tablet,delayed release RxNorm: 055777 1 Tablet(s) PO BID 06/26/20 19 2019 Inactive This refill negates all other refills of this medication ranitidine 150 mg tablet RxNorm: 680054 1 Tablet(s) PO BID 06/26/20 19 2018 Inactive This refill negates all other refills of this medication Calcium 600-D3 Plus (mag-zinc) 600 mg calcium-800 unit-50 mg tablet RxNorm: 1 Tablet(s) PO daily take an additonal tablet for itching. 06/26/20 19 2018 Inactive This refill negates all other refills of this medication albuterol sulfate 2.5 mg/3 mL (0.083 %) solution for nebulization RxNorm: 133260 1 Vial INH QID 06/26/20 19 2018 Inactive 60/box. This refill negates all other refills of this medication. Please do not fill early. Please do not auto refill. lisinopril 2.5 mg tablet RxNorm: 182860 1 Tablet(s) PO daily 06/21/20 19 2019 Inactive gabapentin 300 mg capsule RxNorm: 190338 1 Capsule(s) PO TID 06/21/20 19 2019 Inactive atorvastatin 20 mg tablet RxNorm: 796020 1 Tablet(s) PO QHS 06/07/20 2018 Inactive This refill negates all other refills of this medication TRUEplus Lancets 30 gauge RxNorm: 1 Lancets Miscellaneous QAM 05/29/20 19 2018 Inactive 100/box gabapentin 300 mg capsule RxNorm: 067555 1 Capsule(s) PO TID 05/03/20 19 2018 Inactive Flintsmaury Complete (iron) 18 mg iron chewable tablet RxNorm: 1 Tablet(s) PO daily 04/04/202021 Inactive This refill negates all other refills of this medication gabapentin 300 mg capsule RxNorm: 390558 1 Capsule(s) PO TID as needed 02/01/202018 Inactive True Metrix Glucose Test Strip RxNorm: 1 Test Strips Miscellaneous QA 02/01/202018 Inactive 100/container Alcohol Prep Pads RxNorm: 428812 1 Patch TOP QA 02/01/202018 Inactive TRUEplus Lancets 30 gauge RxNorm: 1 Lancets Miscellaneous QAM 02/01/20 19 2018 Inactive 100/box lisinopril 2.5 mg tablet RxNorm: 503633 1 Tablet(s) PO daily 12/28/192018 Inactive ranitidine 150 mg tablet RxNorm: 962707 1 Tablet(s) PO BID 10/21/192018 Inactive This refill negates all other refills of this medication albuterol sulfate 2.5 mg/3 mL (0.083 %) solution for nebulization RxNorm: 905349 1 Vial INH QID 10/21/192018 Inactive 60/box. [...] this medication gabapentin 300 mg capsule RxNorm: 084751 1 Capsule(s) PO TID as needed 10/21/1919 12/19/ 2019 Inactive atorvastatin 20 mg tablet RxNorm: 480526 1 Tablet(s) PO QHS 10/21/19 19 2018 Inactive This refill negates all other refills of this medication trazodone 50 mg tablet RxNorm: 850988 1 Tablet(s) PO QHS 10/21/19 19 2018 Inactive This refill negates all other refills of this medication Ventolin HFA 90 mcg/actuation aerosol inhaler RxNorm: 692014 2 Puff(s) INH QID 10/21/192018 Inactive Please do not fill early. Please do not auto refill. This refill negates all other refills of this medication Calcium 600-D3 Plus 600 mg calcium-800 unit-50 mg tablet RxNorm: 1 Tablet(s) PO daily take an additonal tablet for itching. 10/21/192018 Inactive This refill negates all other refills of this medication Singulair 10 mg tablet RxNorm: 721410 1 Tablet(s) PO daily 10/21/192018 Inactive This refill negates all other refills of this medication buspirone 7.5 mg tablet RxNorm: 172698 1 Tablet(s) PO BID 10/21/192018 Inactive This refill negates all other refills of this medication diclofenac sodium 75 mg tablet,delayed release RxNorm: 245128 1 Tablet(s) PO BID 10/21/192018 Inactive This refill negates all other refills of this medication hydrochlorothiazide 12.5 mg tablet RxNorm: 773140 1 Tablet(s) PO QAM 10/21/19 19 2018 Inactive metoprolol succinate ER 50 mg tablet,extended release 24 hr RxNorm: 764782 1 Tablet(s) PO daily 10/21/192018 Inactive This refill negates all other refills of this medication levothyroxine 50 mcg tablet RxNorm: 988024 1 Tablet(s) PO daily 10/21/192018 Inactive This refill negates all other refills of this medication cetirizine 10 mg tablet RxNorm: 6019713 1 Tablet(s) PO daily 10/21/19 19 2018 Inactive This refill negates all other refills of this medication. Please do not auto refill Flintstones Complete (iron) 18 mg iron chewable tablet RxNorm: 1 Tablet(s) PO daily 10/21/19 19 2018 Inactive This refill negates all other refills of this medication buspirone 7.5 mg tablet RxNorm: 774125 1 Tablet(s) PO BID 10/12/19 19 2018 Inactive cetirizine 10 mg tablet RxNorm: 7575321 1 Tablet(s) PO daily 09/28/20 18 2018 Inactive Guaiasorb DM 10 mg-100 mg/5 mL oral liquid RxNorm: 786534 10 Milliliter(s) PO As needed every 4 hr 09/24/20 18 2018 Inactive Vicks Vaporub 4.7 %-1.2 %-2.6 % topical ointment RxNorm: 2243907 1 Application TOP TID 09/24/20 18 2018 Inactive levmetamfetamine 50 mg nasal inhaler RxNorm: 1 Unit(s) NASAL Q3-4H 09/24/20 18 2017 Inactive sertraline 50 mg tablet RxNorm: 902264 1 Tablet(s) PO daily 09/09/20 18 2018 Inactive Please note dose trazodone 50 mg tablet RxNorm: 374189 1 Tablet(s) PO QHS 09/06/20 18 2018 Inactive sertraline 50 mg tablet RxNorm: 005074 1 Tablet(s) PO daily 09/06/20 18 2017 Inactive amoxicillin 500 mg tablet RxNorm: 622453 1 Tablet(s) PO Q12H 08/31/20 18 2017 Inactive albuterol sulfate 2.5 mg/3 mL (0.083 %) solution for nebulization RxNorm: 263052 1 Vial INH QID 08/10/20 18 2018 Inactive 60/box. Please do not fill early. Please do not auto refill. Prozac 10 mg capsule RxNorm: 728683 1 Capsule(s) PO daily 08/09/20 18 2017 Inactive buspirone 7.5 mg tablet RxNorm: 756555 1 Tablet(s) PO BID 08/09/20 18 2018 Inactive gabapentin 300 mg capsule RxNorm: 641989 1 Capsule(s) PO TID as needed 08/01/20 18 2018 Inactive hydrochlorothiazide 12.5 mg tablet RxNorm: 397645 1 Tablet(s) PO QAM 08/01/20 18 2018 Inactive ranitidine 150 mg tablet RxNorm: 137176 1 Tablet(s) PO BID 08/01/20 18 2018 Inactive Macrobid 100 mg capsule RxNorm: 830139 1 Capsule(s) PO Q12H 06/21/20 18 2017 Inactive Singulair 10 mg tablet RxNorm: 016895 1 Tablet(s) PO daily 06/14/20 18 2018 Inactive Ventolin HFA 90 mcg/actuation aerosol inhaler RxNorm: 1901324 2 Puff(s) INH QID 06/14/20 18 2018 Inactive Singulair 10 mg tablet RxNorm: 616003 1 Tablet(s) PO daily 06/14/20 18 2017 Inactive buspirone 7.5 mg tablet RxNorm: 920387 1 Tablet(s) PO BID 06/14/20 18 2017 Inactive Prozac 10 mg capsule RxNorm: 775322 1 Capsule(s) PO daily 06/14/20 18 2017 Inactive Neilmed Pediatric Sinus Rinse Refill packet RxNorm: 1 Unit Dose NASAL PRN 05/31/20 18 2021 Inactive diclofenac sodium 75 mg tablet,delayed release RxNorm: 937734 1 Tablet(s) PO BID 05/31/20 18 2017 Inactive lisinopril 2.5 mg tablet RxNorm: 223006 1 Tablet(s) PO daily 05/31/20 18 2017 Inactive metoprolol succinate ER 50 mg tablet,extended release 24 hr RxNorm: 889507 1 Tablet(s) PO daily 05/31/20 18 2017 Inactive levothyroxine 50 mcg tablet RxNorm: 808917 1 Tablet(s) PO daily 05/31/20 18 2017 Inactive TRUEplus Lancets 30 gauge RxNorm: 1 Lancets Miscellaneous QAM 05/31/20 18 2017 Inactive 100/box Ventolin HFA 90 mcg/actuation aerosol inhaler RxNorm: 872322 2 Puff(s) INH QID 05/31/20 18 2017 Inactive Aleve 220 mg capsule RxNorm: 4912666 1 Capsule(s) PO BID 05/31/20 18 2018 Inactive ranitidine 150 mg tablet RxNorm: 210653 1 Tablet(s) PO BID 05/31/20 18 2017 Inactive gabapentin 300 mg capsule RxNorm: 073645 1 Capsule(s) PO TID as needed 05/31/20 18 2017 Inactive atorvastatin 20 mg tablet RxNorm: 878673 1 Tablet(s) PO QHS 05/31/20 18 2017 Inactive True Metrix Glucose Test Strip RxNorm: 1 Test Strips Miscellaneous QA 05/31/20 18 2017 Inactive 50/container Calcium 600-D3 Plus 600 mg calcium-800 unit-50 mg tablet RxNorm: 1 Tablet(s) PO daily take an additonal tablet for itching. 05/31/20 18 2017 Inactive hydrochlorothiazide 12.5 mg tablet RxNorm: 176171 1 Tablet(s) PO QAM 05/31/20 18 2017 Inactive Flintstones Complete (iron) 18 mg iron chewable tablet RxNorm: 1 Tablet(s) PO daily 05/31/20 18 2017 Inactive d-mannose oral powder RxNorm: PO 18 2021 Inactive True Metrix Glucose Meter RxNorm: miscellaneous 08/17/20 19 2018 Inactive sertraline 50 mg tablet RxNorm: 244155 1 Tablet(s) PO daily 11/28/19 20 2019 Inactive loperamide 2 mg tablet RxNorm: 684901 oral 09/29/20 19 2018 Inactive Symbicort 160 mcg-4.5 mcg/actuation HFA aerosol inhaler RxNorm: 6207782 2 Puff(s) INH BID 08/17/20 19 2018 Inactive Medication Administered No Medication Administered data Procedures Procedure Codes Date Annual Wellness Visit (Subsequent Visit) CPT-4: G0439 01/13/2021 Advanced Care Planning CPT-4: VACP Fall Risk Assessment SNOMED CT: 99603904 4 CPT-4: DFRA 01/13/2021 Annual Wellness Visit (Subse quent Visit) Tobacco Assessment/Never used tobacco, Chronic Opioid Use History/Never used opioids, Cognitive Screening/Detection of cognitive impairment:/No, Depression Screening (PHQ2)/Over the past two weeks, have you felt little interest or pleasure in doing things?/0- Not at all, Depression Screening (PHQ2)/Over the past two weeks, have you felt down, depressed, or hopeless?/1- Several days, Depression Screening (PHQ2)/Score:/0-2= Negative for depression (Plan NOT REQUIRED), Hearing Loss Screening/Do you have trouble hearing the tv, radio or struggle to hear/understand conversations?/No, Health Risk Assessment/In general, would you say your health is?/Fair, Health Risk Assessment/Do you get enough physical activity?/Yes, Health Risk Assessment/Do you eat three meals a day?/No, Health Risk Assessment/Current diet?/Solids, Health Risk Assessment/Do you feel that you receive the social and emotional support you need?/Yes, Instrumental Activities of Daily Living/IADLs - Patient needs direct assistance, cuing, or supervision, to perform the following safely:/taking medications, Instrumental Activities of Daily Living/IADLs - Patient needs direct assistance, cuing, or supervision, to perform the following safely:/transportation, Activities of Daily Living/ADLs - Patient needs direct assistance, cuing, or supervision, to perform the following safely:/*No assistance, cuing, or supervision needed, Fall Risk Assessment/Two or more falls in the past year?/No, Fall Risk Assessment/Fall with injury in the past year?/No CPT-4: [id number] 01/13/2021 Advanced Care Planning Time spent discussing advance directives and/or completing forms with the patient or caregiver:/16 minutes (minimum) - 30 minutes, Advance Directive Status:/Reviewed and updated as pertinent, see Hx tab CPT-4: VACPUnknown 01/13/2021 Fall Risk Assessment Two or more falls in the past year?/No, Has there been a fall with injury in the last year?/No, Plan:/Monitor gait and balance PRN, no current action needed SNOMED CT: [id number] CPT-4: DFRAUnknown 01/13/2021 Functional Assessment ADLs - Patient needs direct assistance, cuing, or supervision, to perform the following safely:/*No assistance, cuing, or supervision needed, IADLs - Patient needs direct assistance, cuing, or supervision, to perform the following safely:/shopping, IADLs - Patient needs direct assistance, cuing, or supervision, to perform the following safely:/transportation CPT-4: DFAUnknown 01/13/2021 Patient health Questionnaire -2 Over the past two weeks, have you felt little interest or pleasure in doing things?/(0) Not at all, Over the past two weeks, have you felt down, depressed, or hopeless?/(0) Not at all, Score:/0-2= Negative for depression (Plan NOT REQUIRED) CPT-4: [id number] 01/13/2021 [place] Fany Assessment CPT-4: DSWA 12/01 Urinalysis, dip stick CPT-4: 47295 09/24/2020 Patient Health Questionnaire CPT-4: DPHQ Electrocardiogram CPT-4: 20763 05/14/2020 Tobacco Assessment/Screening CPT-4: TCA Fall Risk Assessment SNOMED CT: 62236310 4 CPT-4: DFRA 01/01/2020 Functional Assessment CPT-4: DFA 01/01/2020 Olney Fany Assessment CPT-4: DSWA 11/04 Patient Health Questionnaire CPT-4: DPHQ [place] Fany Assessment CPT-4: DSWA 10/03 Hypertension CPT-4: HTN 10/17/2019 Fall Risk Assessment SNOMED CT: 76247015 4 CPT-4: DFRA 09/19/2019 Functional Assessment CPT-4: DFA 09/19/2019 Urinalysis, dip stick CPT-4: 76632 06/21/2019 Tobacco Assessment/Screening CPT-4: TCA Patient Health Questionnaire CPT-4: DPHQ AHA/REBECCA Classification Assessment CPT-4: DAHA 04/25/2019 Controlled Substance Report CPT-4: CTRSU 04/03 Urinalysis, dip stick CPT-4: 20525 03/28/2019 Urinalysis, dip stick CPT-4: 26205 03/28/2019 G1F-Yruunghgrrbpnst CPT-4: 10562 Unknown R5T-Fjstyrbjnhlwgly CPT-4: 13977 Unknown S8K-Roqhtoeafpchjud CPT-4: 70457 Unknown I0O-Copreydandvdpdh CPT-4: 40730 Unknown W4C-Smhrmojhxiexnxc CPT-4: 81597 Unknown Y9J-Dslnaouymmbbbpq CPT-4: 25921 Unknown Gynecology Referral SNOMED CT: 383851176 CPT-4: R14 Unknown Reason For Visit Reason For Visit Effective Dates Notes Interim health update 01/13/2021 diabetes mellitus 01/13/2021 hypertension 01/13/2021 anorexia 01/13/2021 genitouriniary male/female complaint 01/13/2021 Encounters Encounter Performer Location Location Address Codes [place] [id number]) (EST PT) DETAILED TELEHEALTH VISIT Diagnosis: Hypertensive heart disease with heart failure[ICD10: I11.0] Diagnosis: Type 2 diabetes mellitus with peripheral neuropathy[ICD10: E11.42] Diagnosis: Chronic kidney disease, stage 2 (mild)[ICD10: N18.2] Diagnosis: History of bladder surgery[ICD10: Z98.890] Diagnosis: Urinary retention with incomplete bladder emptying[ICD10: R33.9] Diagnosis: (Z00.01-V70.0) Encounter for general adult medical examination with abnormal findings[ICD10: Z00.01] Diagnosis: (Z13.31-V79.0) Encounter for screening for depression[ICD10: Z13.31] Anna Culver [place] [facility] [address] [address] CPT-4: 56168 01/13/2021 Plan of Care Planned Activity Notes Codes Status Date Visit Plan: R63.0-783.0 Anorexia Ongoing lack of appetite for solid foods for several weeks, denies difficulties managing fluids-drank entire bottle of carbonated water during visit advised to continue to try small, more frequent food intake, discussed limiting carbonated beverages as this may make her feel full taking away appetite discussed benefits of [employer] Breakfast. note weight remain relatively stable over the past couple months-will continue to monitor E11.42-250.60 Type 2 diabetes mellitus with peripheral neuropathy ranging 103-126, Metformin 1000mg BID - received new monitor [employer] through [facility]-participant of [employer] on demand - 10/29/2020 hgb A1C 5.6 10/17/2019 Olney Fany 04/11-instructed on good daily foot care [...] 09/24/2021 GFR 81 routine urology follow up-had rinary stimulator implant surgery 01/05/2021-feels bladder emptying has improved K21.9-530.81 GERD (gastroesophageal reflux disease) continue famotidine 10mg qam and omeprazole 20mg advised to limit late evening eating, avoid fried, greasy foods, and carbonated beverages G47.33-327.23 Obstructive sleep apnea (adult) (pediatric) J45.909-493.90 Asthma has had a few nights of not wearing her cpap-discussed wearing at all times continue inhalers nebulizer routine f/u Dr. Garcia, pulmonology F43.23-309.28 Adjustment disorder with mixed anxiety and depressed mood routine follow up [facility] 08/19/2020 PHQ 9 Scoere 1, admits to [...] new appt for pap in June 2020-[facility] Director Pharmacology-reports pap negative-records requested Z01.89-V72.85 Encounter for screening for tobacco use 12/31/2020 Tobacco screen complete-patient denies ever smoking Z12.31-V76.12 (Z12.31-V76.12) Encounter for screening mammogram for malignant neoplasm of breast Z12.11-V76.51 (Z12.11-V76.51) Encounter for screening for malignant neoplasm of colon Preventative testing not indicated due to age *I reviewed the most recent CDC guidelines regarding Covid-19/Coronavirus with the patient/caregiver/designee 01/13/2021 Patient Education: Patient Medication Summary Completed 01/13/2021 Patient Education: Diabetes Complete d 01/13/2021 Patient Education: Hypertension Completed 01/13/2021 Appointment: Anna Culver WPtel: [phone] [place] [address] [place] E410 12/17/2020 Appointment: Chivo Bishop WPtel: [phone] [place] [address] [place] ETV 11/28/2020 Appointment: Anna Culver WPtel: [address] [place] [address] [place] ETV 11/24/2020 Appointment: Anna Culver WPtel: [address] [place] [address] [place] E410 10/29/2020 Appointment: Anna Culver WPtel: [address] [place] [address] E410 09/24/2020 Appointment: Anna Culver WPtel: [address] [place] [address] ETV 08/26/2020 Appointment: Anna Culver WPtel: [address] [place] [address] [place] E[place] 08/19/2020 Appointment: Anna Culver WPtel: [address] [place] [address] ETV 07/22/2020 Appointment: Anna Culver WPtel: [address] [place] [address] [place] ETV 07/08/2020 Appointment: Gianna Birmingham: [facility] [address] [id number] [place] ECHO 07/02/2020 Appointment: Anna Culver WPtel: [address] [place] [address] [place] E452 06/11/2020 Appointment: Anna Culver WPtel: [address] [place] [address] [place] E452 05/14/2020 Appointment: Anna Culver WPtel: [address] [place] [address] [place] E452 04/17/2020 Appointment: Anna Culver WPtel: [phone] E452 03/21/2020 Appointment: Anna Culver WPtel: [address] E452 02/14/2020 Appointment: Anna Culver WPtel: [phone] [place] [address] E452 01/24/2020 Appointment: Anna Culver WPtel: [address] [place] [address] E452 01/01/2020 Appointment: Anna Culver WPtel: [address] [place] [address] E452 11/28/2019 Appointment: Anna Culver WPtel: [address] [place] [address] E452 10/17/2019 Appointment: Anna Culver WPtel: [address] [place] [address] E452 09/19/2019 Appointment: Sudha Hernadez WPtel: [address] [id number] E452 07/04/2019 Appointment: Sudha Hernadez WPtel: [address] [facility] [id number] E452 06/21/2019 Appointment: Charlene Oropeza WPtel: [address] [facility] [id number] E452 05/24/2019 Appointment: Mallory Delgado E452 04/27/2019 Appointment: Charlene Oropeza WPtel: [address] [facility] [id number] E452 04/25/2019 Appointment: Rasta Palafox WPtel: [address] [facility] b [id number] E452 03/28/2019 Appointment: Rasta Palafox WPtel: [address] [facility] b [id number] E452 02/14/2019 Appointment: Rasta Palafox WPtel: [address] [facility] b [id number] E452 01/31/2019 Appointment: Rasta Palafox WPtel: [address] [facility] b [id number] E420 12/27/2018 Referral: Pending Gynecology Referral Information Referral Processed Referral: Pending Pulmonolog y Referral Information Referral Processed Referral: Pending Psychiatry Referral Information Referral Initiated Referral: Pending Respirator y Services Referral Information Referral Initiated Referral: Pending Ophthalmology Referral Information Referral Initiated Referral: [facility] WPtel: [address] [place] [address] Pricing Supervisor placed a call out to the patient to notify her that it has been recommended that she be seen by a urologist. Patient agreed to be seen, does not have a provider of choice and no transportation issues. Pricing Supervisor faxed referral and clinical notes to [facility] in [place], [place] near the patient's home. Patient to [...] seen and prefers a provider in the [place] or [place] area. Pricing Supervisor placed a call out to everyone listed in the area and the only location that was able to accept the patient's insurance was [facility] [place] [address] and spoke with Maylin. Maylin asked that the patient's referral, face sheet and visit notes be faxed to . Pricing Supervisor faxed over requested documents. Patient appointment confirmation letter generated and mailed to her home address. Patient to call to schedule an appointment. Processed Referral: [facility] WPtel: [address] [facility] [address] [place], [place] [id number] Patient notified that it has been advised that she be seen by Neurology. Patient agreed to be seen and prefers to be seen by a provider in the [place], [place] area. Patient denies any concerns with transportation, and prefers to schedule her own appointment. Pricing Supervisor placed a call out to [facility] and spoke with Neeraj P: who confirmed that their office is able to accept new patients and the patient's insurance. After confirming the providers fax number, physician underwriter faxed over the patient's referral, and [...] full taking away appetite discussed benefits of [employer] Breakfast. note weight remain relatively stable over the past couple months-will continue to monitor E11.42-250.60 Type 2 diabetes mellitus with peripheral neuropathy ranging 103-126, Metformin 1000mg BID - received new monitor [employer] through [employer]-participant of [employer] on demand - 10/29/2020 hgb A1C 5.6 10/17/2019 Olney Fany 7/10-instructed on good daily foot care [...] 09/24/2021 GFR 81 routine urology follow up-had rinary stimulator implant surgery 01/05/2021-feels bladder emptying has improved K21.9-530.81 GERD (gastroesophageal reflux disease) continue famotidine 10mg qam and omeprazole 20mg advised to limit late evening eating, avoid fried, greasy foods, and carbonated beverages G47.33-327.23 Obstructive sleep apnea (adult) (pediatric); J45.909-493.90 Asthma has had a few nights of not wearing her cpap-discussed wearing at all times continue inhalers nebulizer routine f/u Dr. Garcia, pulmonology F43.23-309.28 Adjustment disorder with mixed anxiety and depressed mood routine follow up [facility] 08/19/2020 PHQ 9 Scoere 1, admits to [...] new appt for pap in June 2020-[facility] Director Pharmacology-reports pap negative-records requested Z01.89-V72.85 Encounter for screening for tobacco use 12/31/2020 Tobacco screen complete-patient denies ever smoking Z12.31-V76.12 (Z12.31-V76.12) Encounter for screening mammogram for malignant neoplasm of breast Z12.11-V76.51 (Z12.11-V76.51) Encounter for screening for malignant neoplasm of colon Preventative testing not indicated due to age *I reviewed the most recent CDC guidelines regarding Covid-19/Coronavirus with the patient/caregiver/designee 01/13/2021 Medical Equipment No Medical Equipment data Advance Directives No Advance Directive data
--- OUTSIDE RECORDS SUMMARY | 2023-12-07 02:15 | XMS_ITS | CCD ---
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 Boarder Steam Name Role Phone Palomo KING, Anna Primary Care Provider Unav ailable Unavailable Chronic Care Management Unavaila ble Summary Purpose DataExchange Insurance Providers Payer name Policy type / Coverage type Covered alliance party ID Effective Begin Date Effective End Date SUKI MAOY [id number] Unknown Unknown Family history Mother Diagnosis Age [...] Unknown Disability 05/31/[address]: 761677912 Has never s moked or chewed tobacco 05/31/[address]: 572439896 Never drinks alco hol 05/31/2018 Has the [...] ICD-10: R51 ICD-9: 784.0 10/03/2018 Inactive Other assisted (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 ICD-10: Z79.899 ICD-9: V58.69 04/25/2019 Inactive Type 2 diabetes mellitus wit hout complications ICD-10: E11.9 ICD-9: 250.00 10/03/2018 Inactive Wheezing ICD-10: R06.2 ICD-9: 786.07 08/08/2018 Inactive Abnormal urine finding ICD-10: R82.90 ICD-9: 791.9 09/24/2020 Resolved Abrasion of toe ICD-10: S90.416A ICD-9: 917.0 02/14/2020 Resolved Acute upper respiratory infe ction, unspecified ICD-10: J06.9 ICD-9: 465.9 09/04/2019 Resolved [place] eye ICD-10: H10.029 ICD-9: 372.03 12/29/2019 Resolved [...] ICD-10: R60.9 ICD-9: 782.3 07/11/2018 Active 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) use of non-steroidal anti-inflammatories (NSAID) ICD-10: Z79.1 ICD-9: V58.64 06/13/2018 Active Medications Medication Codes Instructions Start Date Stop Date Status Fill Instructions lisinopril 2.5 mg tablet RxNorm: 663948 TAKE 1 TABLET BY MOUTH DAILY 01/06/20 21 2020 Inactive gabapentin 300 mg capsule RxNorm: 674318 TAKE 1 CAPSULE BY MOUTH THREE TIMES A DAY 01/06/20 21 2020 Inactive Singulair 10 mg tablet RxNorm: 690616 TAKE (1) TABLET BY MOUTH DAILY 01/06/202020 Inactive metformin 1,000 mg tablet RxNorm: 729180 1 Tablet(s) Oral two times a day 01/06/20 21 2020 Inactive atorvastatin 40 mg tablet RxNorm: 658299 1 Tablet(s) Oral every day 12/06/19 21 2020 Inactive omeprazole 20 mg capsule,delayed release RxNorm: 230873 1 Capsule(s) Oral every evening 11/24/19 21 2020 Inactive famotidine 10 mg tablet RxNorm: 099533 1 Tablet(s) Oral every morning 11/24/192020 Inactive Alcohol Prep Pads RxNorm: 592042 USE EACH MORNING 10/14/19 21 2020 Inactive omeprazole 20 mg capsule,delayed release RxNorm: 520406 1 Capsule(s) Oral two times a day 10/13/19 21 2021 Inactive omeprazole 20 mg capsule,delayed release RxNorm: 552862 TAKE 1 CAPSULE BY MOUTH EVERY DAY 10/08/19 21 2021 Inactive Macrobid 100 mg capsule RxNorm: 621685 1 Capsule(s) Oral every 12 hours with food 10/01/20 20 2020 Inactive omeprazole 20 mg capsule,delayed release RxNorm: 123708 1 Capsule(s) Oral two times a day 09/24/20 20 2021 Inactive metformin 1,000 mg tablet RxNorm: 215346 1 Tablet(s) Oral two times a day 08/19/20 20 2020 Inactive start on September 11, 2020 metformin 500 mg tablet RxNorm: 179387 1 Tablet(s) Oral two times a day take with 500mg to equal 1000mg 08/19/20 20 2019 Inactive cetirizine 10 mg tablet RxNorm: 9895447 TAKE (1) TABLET BY MOUTH DAILY 07/11/20 20 2020 Inactive gabapentin 300 mg capsule RxNorm: 734408 TAKE 1 CAPSULE BY MOUTH THREE TIMES DAILY 07/11/20 20 2020 Inactive metformin 500 mg tablet RxNorm: 544684 1 Tablet(s) Oral two times a day 07/08/20 20 2019 Inactive loperamide 2 mg tablet RxNorm: 496360 1 Tablet(s) Oral as needed take one tablet after each loose stool, maximum of 8 tablets in 24 hours 06/24/20 20 2021 Inactive Sudafed 12 Hour 120 mg tablet,extended release RxNorm: 0510670 TAKE 1 TABLET BY MOUTH EVERY 12 HOURS NEEDED 06/11/20 20 2019 Inactive hydrochlorothiazide 25 mg tablet RxNorm: 720950 TAKE (1) TABLET BY MOUTH EVERY DAY 06/11/20 20 2019 Inactive omeprazole 20 mg capsule,delayed release RxNorm: 609095 TAKE 1 CAPSULE BY MOUTH EVERY DAY 05/14/20 20 2020 Inactive metformin 500 mg tablet RxNorm: 669672 1 Tablet(s) Oral every day 05/12/20 20 2019 Inactive True Metrix Glucose Test Strip RxNorm: 1 Test Strips Miscellaneous two times a day as needed 04/17/20 No Stop Date Active metformin 500 mg tablet RxNorm: 686561 1 Tablet(s) Oral every day 04/17/20 20 2019 Inactive diclofenac sodium 75 mg tablet,delayed release RxNorm: 126716 1 Tablet(s) PO BID 04/14/20 20 2021 Inactive This refill negates all other refills of this medication Sudafed 12 Hour 120 mg tablet,extended release RxNorm: 2482126 TAKE 1 TABLET BY MOUTH EVERY 12 HOURS NEEDED 03/14/20 20 2019 Inactive True Metrix Glucose Test Strip RxNorm: 1 Test Strips Miscellaneous every morning 03/13/20 20 2019 Inactive 100/container True Metrix Glucose Test Strip RxNorm: 1 Test Strips Miscellaneous QAM 02/22/20 20 2019 Inactive 100/container loperamide 2 mg tablet RxNorm: 526218 1 Tablet(s) Oral as needed take one tablet after each loose stool, maximum of 8 tablets in 24 hours 02/22/20 20 2019 Inactive levothyroxine 50 mcg tablet RxNorm: 241322 1 Tablet(s) PO daily 01/17/20 20 2020 Inactive cetirizine 10 mg tablet RxNorm: 3412045 1 Tablet(s) PO daily 01/17/20 20 2019 Inactive loperamide 2 mg tablet RxNorm: 068843 1 Tablet(s) Oral as needed take one tablet after each loose stool, maximum of 8 tablets in 24 hours 01/17/20 20 2019 Inactive quetiapine 100 mg tablet RxNorm: 816212 1 Tablet(s) Oral every night at bedtime 01/17/20 20 2019 Inactive gabapentin 300 mg capsule RxNorm: 275477 1 Capsule(s) PO TID 01/17/20 20 2019 Inactive levothyroxine 50 mcg tablet RxNorm: 520382 1 Tablet(s) PO daily 01/15/20 20 2019 Inactive lisinopril 2.5 mg tablet RxNorm: 835981 1 Tablet(s) PO daily 01/15/20 20 2020 Inactive gabapentin 300 mg capsule RxNorm: 666110 1 Capsule(s) PO TID 01/15/20 20 2019 Inactive cetirizine 10 mg tablet RxNorm: 4143735 1 Tablet(s) PO daily 01/15/20 20 2019 Inactive Singulair 10 mg tablet RxNorm: 549508 1 Tablet(s) PO daily 01/15/20 20 2020 Inactive gentamicin 0.3 % eye drops RxNorm: 976864 1 Drop(s) ophthalmic (eye) four times a day 12/29/19 20 2019 Inactive gentamicin 0.3 % eye drops RxNorm: 698846 1 Drop(s) ophthalmic (eye) four times a day 12/29/19 20 2019 Inactive gentamicin 0.3 % eye drops RxNorm: 135139 1 Drop(s) ophthalmic (eye) four times a day 12/29/19 20 2019 Inactive hydrochlorothiazide 25 mg tablet RxNorm: 292444 1 Tablet(s) Oral every day 12/21/19 20 2019 Inactive Sudafed 12 Hour 120 mg tablet,extended release RxNorm: 2336332 TAKE (1) TABLET BY MOUTH EVERY 12 HOURS NEEDED 12/21/19 20 2019 Inactive loperamide 2 mg tablet RxNorm: 070010 1 Tablet(s) Oral as needed take one tablet after each loose stool, maximum of 8 tablets in 24 hours 12/11/19 20 2019 Inactive loperamide 2 mg tablet RxNorm: 438847 1 Tablet(s) Oral as needed take one tablet after each loose stool, maximum of 8 tablets in 24 hours 12/11/19 20 2019 Inactive atorvastatin 40 mg tablet RxNorm: 561770 1 Tablet(s) Oral every day 11/29/19 20 2020 Inactive quetiapine 100 mg tablet RxNorm: 372595 1 Tablet(s) Oral every night at bedtime 11/28/19 2019 Inactive sertraline 100 mg tablet RxNorm: 747153 1 Tablet(s) Oral 11/28/19 20 2019 Inactive omeprazole 20 mg capsule,delayed release RxNorm: 588080 1 Capsule(s) Oral every day 11/20/19 20 2019 Inactive amoxicillin 250 mg capsule RxNorm: 040347 1 Capsule(s) Oral three times a day 11/07/19 20 2019 Inactive multivitamin with iron-mineral tablet RxNorm: 1 Tablet(s) Oral every day 10/29/19 20 2021 Inactive cetirizine 10 mg tablet RxNorm: 6142629 1 Tablet(s) PO daily 10/20/19 20 2019 Inactive This refill negates all other refills of this medication. Please do not auto refill Singulair 10 mg tablet RxNorm: 141549 1 Tablet(s) PO daily 10/20/19 20 2019 Inactive This refill negates all other refills of this medication gabapentin 300 mg capsule RxNorm: 379065 1 Capsule(s) PO TID 10/20/19 20 2019 Inactive lisinopril 2.5 mg tablet RxNorm: 604544 1 Tablet(s) PO daily 10/20/19 20 2019 Inactive levothyroxine 50 mcg tablet RxNorm: 888934 1 Tablet(s) PO daily 10/20/192019 Inactive This refill negates all other refills of this medication fenugreek seed extract 500 mg capsule RxNorm: 1 Capsule(s) Oral three times a day 10/17/19 20 2021 Inactive hydrochlorothiazide 25 mg tablet RxNorm: 898931 1 Tablet(s) Oral every day 10/17/19 20 2019 Inactive Alcohol Prep Pads RxNorm: 144355 1 Patch TOP QAM 10/16/192020 Inactive loperamide 2 mg tablet RxNorm: 023307 1 Tablet(s) Oral as needed take one [...] 2019 Inactive hydrochlorothiazide 25 mg tablet RxNorm: 133458 1 Tablet(s) Oral every day 09/19/20 19 2019 Inactive Sudafed 12 Hour 120 mg tablet,extended release RxNorm: 1717070 1 Tablet(s) Oral every 12 hours as needed 09/11/20 19 2018 Inactive omeprazole 20 mg capsule,delayed release RxNorm: 963638 1 Capsule(s) Oral every day 09/07/20 19 2019 Inactive Sudafed 12 Hour 120 mg tablet,extended release RxNorm: 2027183 1 Tablet(s) Oral every 12 hours as needed 09/04/20 19 2018 Inactive pantoprazole 40 mg tablet,delayed release RxNorm: 298861 1 Tablet(s) Oral every day 08/24/20 19 2018 Inactive discontinue any other H2Blkr. and PPI albuterol sulfate 2.5 mg/3 mL (0.083 %) solution for nebulization RxNorm: 584992 1 Vial Inhalation every four hours as needed as needed for dyspnea 08/17/20 19 2019 Inactive 60/box. This refill negates all other refills of this medication. Please do not fill early. Please do not auto refill. Symbicort 160 mcg-4.5 mcg/actuation HFA aerosol inhaler RxNorm: 6325524 2 Puff(s) INH BID 08/17/20 19 No Stop Date Active Alcohol Prep Pads RxNorm: 236684 1 Patch TOP QAM 08/17/20 19 2019 Inactive Ventolin HFA 90 mcg/actuation aerosol inhaler RxNorm: 566284 2 Puff(s) INH QID 08/09/20 2019 Inactive Please do not fill early. Please do not auto refill. This refill negates all other refills of this medication True Metrix Glucose Test Strip RxNorm: 1 Test Strips Miscellaneous QAM 08/09/20 19 2019 Inactive 100/container atorvastatin 40 mg tablet RxNorm: 084970 1 Tablet(s) Oral every day 07/04/20 19 2019 Inactive levmetamfetamine 50 mg nasal inhaler RxNorm: 1 Unit(s) NASAL Q3-4H Do not use more than every 3 hours or 8 times/24hours 06/26/20 19 2021 Inactive Please do not auto refill. This refill negates all other refills of this medication buspirone 7.5 mg tablet RxNorm: 640519 1 Tablet(s) PO BID 06/26/20 19 2020 Inactive This refill negates all other refills of this medication hydrochlorothiazide 12.5 mg tablet RxNorm: 513209 1 Tablet(s) PO QAM 06/26/20 19 2019 Inactive Ventolin HFA 90 mcg/actuation aerosol inhaler RxNorm: 259969 2 Puff(s) INH QID 06/26/20 19 2018 Inactive Please do not fill early. Please do not auto refill. This refill negates all other refills of this medication Singulair 10 mg tablet RxNorm: 294604 1 Tablet(s) PO daily 06/26/20 19 2019 Inactive This refill negates all other refills of this medication cetirizine 10 mg tablet RxNorm: 0798807 1 Tablet(s) PO daily 06/26/20 19 2019 Inactive This refill negates all other refills of this medication. Please do not auto refill levothyroxine 50 mcg tablet RxNorm: 814929 1 Tablet(s) PO daily 06/26/20 19 2019 Inactive This refill negates all other refills of this medication diclofenac sodium 75 mg tablet,delayed release RxNorm: 078289 1 Tablet(s) PO BID 06/26/20 19 2019 Inactive This refill negates all other refills of this medication ranitidine 150 mg tablet RxNorm: 786371 1 Tablet(s) PO BID 06/26/20 19 2018 Inactive This refill negates all other refills of this medication Calcium 600-D3 Plus (mag-zinc) 600 mg calcium-800 unit-50 mg tablet RxNorm: 1 Tablet(s) PO daily take an additonal tablet for itching. 06/26/20 19 2018 Inactive This refill negates all other refills of this medication albuterol sulfate 2.5 mg/3 mL (0.083 %) solution for nebulization RxNorm: 306717 1 Vial INH QID 06/26/20 19 2018 Inactive 60/box. This refill negates all other refills of this medication. Please do not fill early. Please do not auto refill. lisinopril 2.5 mg tablet RxNorm: 258178 1 Tablet(s) PO daily 06/21/20 19 2019 Inactive gabapentin 300 mg capsule RxNorm: 187294 1 Capsule(s) PO TID 06/21/20 19 2019 Inactive atorvastatin 20 mg tablet RxNorm: 892291 1 Tablet(s) PO QHS 06/07/20 19 2018 Inactive This refill negates all other refills of this medication TRUEplus Lancets 30 gauge RxNorm: 1 Lancets Miscellaneous QAM 05/29/20 19 2018 Inactive 100/box gabapentin 300 mg capsule RxNorm: 550242 1 Capsule(s) PO TID 05/03/20 19 2018 Inactive Fl[place]ma[place] Complete (iron) 18 mg iron chewable tablet RxNorm: 1 Tablet(s) PO daily 04/04/20 19 2021 Inactive This refill negates all other refills of this medication gabapentin 300 mg capsule RxNorm: 690122 1 Capsule(s) PO TID as needed 02/01/20 19 2018 Inactive True Metrix Glucose Test Strip RxNorm: 1 Test Strips Miscellaneous QAM 02/01/20 19 2018 Inactive 100/container Alcohol Prep Pads RxNorm: 794606 1 Patch TOP QAM 02/01/20 19 2018 Inactive TRUEplus Lancets 30 gauge RxNorm: 1 Lancets Miscellaneous QAM 02/01/20 19 2018 Inactive 100/box lisinopril 2.5 mg tablet RxNorm: 428190 1 Tablet(s) PO daily 12/28/19 19 2018 Inactive ranitidine 150 mg tablet RxNorm: 245374 1 Tablet(s) PO BID 10/21/19 19 2018 Inactive This refill negates all other refills of this medication albuterol sulfate 2.5 mg/3 mL (0.083 %) solution for nebulization RxNorm: 703885 1 Vial INH QID 10/21/19 19 2018 [...] this medication gabapentin 300 mg capsule RxNorm: 056561 1 Capsule(s) PO TID as needed 10/21/19 19 2018 Inactive atorvastatin 20 mg tablet RxNorm: 896914 1 Tablet(s) PO QHS 10/21/19 19 2018 Inactive This refill negates all other refills of this medication trazodone 50 mg tablet RxNorm: 087837 1 Tablet(s) PO QHS 10/21/192018 Inactive This refill negates all other refills of this medication Ventolin HFA 90 mcg/actuation aerosol inhaler RxNorm: 379796 2 Puff(s) INH QID 10/21/19 19 2018 [...] this medication Singulair 10 mg tablet RxNorm: 037453 1 Tablet(s) PO daily 10/21/19 19 2018 Inactive This refill negates all other refills of this medication buspirone 7.5 mg tablet RxNorm: 730954 1 Tablet(s) PO BID 10/21/19 19 2018 Inactive This refill negates all other refills of this medication diclofenac sodium 75 mg tablet,delayed release RxNorm: 309087 1 Tablet(s) PO BID 10/21/19 19 2018 Inactive This refill negates all other refills of this medication hydrochlorothiazide 12.5 mg tablet RxNorm: 639838 1 Tablet(s) PO QAM 10/21/19 19 2018 Inactive metoprolol succinate ER 50 mg tablet,extended release 24 hr RxNorm: 978302 1 Tablet(s) PO daily 10/21/19 19 2018 Inactive This refill negates all other refills of this medication levothyroxine 50 mcg tablet RxNorm: 100284 1 Tablet(s) PO daily 10/21/19 19 2018 Inactive This refill negates all other refills of this medication cetirizine 10 mg tablet RxNorm: 3846763 1 Tablet(s) PO daily 10/21/19 19 2018 Inactive This refill negates all other refills of this medication. Please do not auto refill Flintstones Complete (iron) 18 mg iron chewable tablet RxNorm: 1 Tablet(s) PO daily 10/21/192018 Inactive This refill negates all other refills of this medication buspirone 7.5 mg tablet RxNorm: 482147 1 Tablet(s) PO BID 10/12/192018 Inactive cetirizine 10 mg tablet RxNorm: 2164048 1 Tablet(s) PO daily 09/28/202018 Inactive Guaiasorb DM 10 mg-100 mg/5 mL oral liquid RxNorm: 117735 10 Milliliter(s) PO As needed every 4 hr 09/24/20 18 2018 Inactive Vicks Vaporub 4.7 %-1.2 %-2.6 % topical ointment RxNorm: 1656112 1 Application TOP TID 09/24/20 18 2018 Inactive levmetamfetamine 50 mg nasal inhaler RxNorm: 1 Unit(s) NASAL Q3-4H 09/24/20 18 2017 Inactive sertraline 50 mg tablet RxNorm: 092723 1 Tablet(s) PO daily 09/09/20 18 2018 Inactive Please note dose trazodone 50 mg tablet RxNorm: 225875 1 Tablet(s) PO QHS 09/06/20 18 2018 Inactive sertraline 50 mg tablet RxNorm: 278828 1 Tablet(s) PO daily 09/06/20 18 2017 Inactive amoxicillin 500 mg tablet RxNorm: 897713 1 Tablet(s) PO Q12H 08/31/20 18 2017 Inactive albuterol sulfate 2.5 mg/3 mL (0.083 %) solution for nebulization RxNorm: 498690 1 Vial INH QID 08/10/20 18 2018 Inactive 60/box. Please do not fill early. Please do not auto refill. Prozac 10 mg capsule RxNorm: 100366 1 Capsule(s) PO daily 08/09/20 18 2017 Inactive buspirone 7.5 mg tablet RxNorm: 737137 1 Tablet(s) PO BID 08/09/20 18 2018 Inactive gabapentin 300 mg capsule RxNorm: 610285 1 Capsule(s) PO TID as needed 08/01/20 18 2018 Inactive hydrochlorothiazide 12.5 mg tablet RxNorm: 963955 1 Tablet(s) PO QAM 08/01/20 18 2018 Inactive ranitidine 150 mg tablet RxNorm: 118033 1 Tablet(s) PO BID 08/01/20 18 2018 Inactive Macrobid 100 mg capsule RxNorm: 745883 1 Capsule(s) PO Q12H 06/21/20 18 2017 Inactive Singulair 10 mg tablet RxNorm: 949120 1 Tablet(s) PO daily 06/14/20 18 2018 Inactive Ventolin HFA 90 mcg/actuation aerosol inhaler RxNorm: 8048754 2 Puff(s) INH QID 06/14/20 18 2018 Inactive Singulair 10 mg tablet RxNorm: 642082 1 Tablet(s) PO daily 06/14/20 18 2017 Inactive buspirone 7.5 mg tablet RxNorm: 401329 1 Tablet(s) PO BID 06/14/20 18 2017 Inactive Prozac 10 mg capsule RxNorm: 338040 1 Capsule(s) PO daily 06/14/20 18 2017 Inactive Neilmed Pediatric Sinus Rinse Refill packet RxNorm: 1 Unit Dose NASAL PRN 05/31/20 18 2021 Inactive diclofenac sodium 75 mg tablet,delayed release RxNorm: 867654 1 Tablet(s) PO BID 05/31/20 18 2017 Inactive lisinopril 2.5 mg tablet RxNorm: 760662 1 Tablet(s) PO daily 05/31/20 18 2017 Inactive metoprolol succinate ER 50 mg tablet,extended release 24 hr RxNorm: 608319 1 Tablet(s) PO daily 05/31/20 18 2017 Inactive levothyroxine 50 mcg tablet RxNorm: 153523 1 Tablet(s) PO daily 05/31/20 18 2017 Inactive TRUEplus Lancets 30 gauge RxNorm: 1 Lancets Miscellaneous QAM 05/31/20 18 2017 Inactive 100/box Ventolin HFA 90 mcg/actuation aerosol inhaler RxNorm: 347074 2 Puff(s) INH QID 05/31/20 18 2017 Inactive Aleve 220 mg capsule RxNorm: 2861927 1 Capsule(s) PO BID 05/31/20 18 2018 Inactive ranitidine 150 mg tablet RxNorm: 397387 1 Tablet(s) PO BID 05/31/20 18 2017 Inactive gabapentin 300 mg capsule RxNorm: 420298 1 Capsule(s) PO TID as needed 05/31/20 18 2017 Inactive atorvastatin 20 mg tablet RxNorm: 794378 1 Tablet(s) PO QHS 05/31/20 18 2017 Inactive True Metrix Glucose Test Strip RxNorm: 1 Test Strips Miscellaneous QAM 05/31/20 18 2017 Inactive 50/container Calcium 600-D3 Plus 600 mg calcium-800 unit-50 mg tablet RxNorm: 1 Tablet(s) PO daily take an additonal tablet for itching. 05/31/20 18 2017 Inactive hydrochlorothiazide 12.5 mg tablet RxNorm: 242057 1 Tablet(s) PO QAM 05/31/20 18 2017 Inactive Flintstones Complete (iron) 18 mg iron chewable tablet RxNorm: 1 Tablet(s) PO daily 05/31/20 18 2017 Inactive d-mannose oral powder RxNorm: PO 18 2021 Inactive True Metrix Glucose Meter RxNorm: miscellaneous 08/17/20 19 2018 Inactive sertraline 50 mg tablet RxNorm: 798050 1 Tablet(s) PO daily 11/28/19 20 2019 Inactive loperamide 2 mg tablet RxNorm: 407310 oral 09/29/20 19 2018 Inactive Symbicort 160 mcg-4.5 mcg/actuation HFA aerosol inhaler RxNorm: 1990311 2 Puff(s) INH BID 08/17/20 19 2018 Inactive Medication Administered No Medication Administered data Procedures Procedure Codes Date [place] Assessment CPT-4: DSWA 12/01 Urinalysis, dip stick CPT-4: 25296 09/24/2020 Patient Health Questionnaire CPT-4: DPHQ Electrocardiogram CPT-4: 98024 05/14/2020 Tobacco Assessment/Screening CPT-4: TCA Fall Risk Assessment SNOMED CT: 08505037 4 CPT-4: DFRA 01/01/2020 Functional Assessment CPT-4: DFA 01/01/2020 [place] Fany Assessment CPT-4: DSWA 11/04 Patient Health Questionnaire CPT-4: DPHQ [place] Fany Assessment CPT-4: DSWA 10/03 Hypertension CPT-4: HTN 10/17/2019 Fall Risk Assessment SNOMED CT: 30018384 4 CPT-4: DFRA 09/19/2019 Functional Assessment CPT-4: DFA 09/19/2019 Urinalysis, dip stick CPT-4: 77942 06/21/2019 Tobacco Assessment/Screening CPT-4: TCA Patient Health Questionnaire CPT-4: DPHQ AHA/REBECCA Classification Assessment CPT-4: DAHA 04/25/2019 Controlled Substance Report CPT-4: CTRSU 04/03 Urinalysis, dip stick CPT-4: 17168 03/28/2019 Urinalysis, dip stick CPT-4: 36762 03/28/2019 [id number]-Hfuvcdssldfmrun CPT-4: 00693 Unknown P6P-Xovexucfrgkfjtc CPT-4: 00044 Unknown C0Y-Tqjjmrfdirtognf CPT-4: 96513 Unknown A5D-Qcnqwkjavgwdlws CPT-4: 73997 Unknown T0V-Qwwxtfrjpxlvnro CPT-4: 05816 Unknown T8D-Fpmrqnensdcjmmd CPT-4: 52885 Unknown Gynecology Referral SNOMED CT: 790160888 CPT-4: R14 Unknown Reason For Visit No [...] Referral: [facility] WPtel: [address] [place] [address] [address] [place] [address] [place] [employer] placed a call out to the patient to notify her that it has been recommended that she be seen by a urologist. Patient agreed to be seen, does not have a provider of choice and no transportation issues. Director Of [employer] faxed referral and clinical notes to [facility] in [place], [place] near the patient's home. Patient to [...] a provider in the [place] or [place] area. Director Of [employer] Strategy placed a call out to everyone listed in the area and the only location that was able to accept the patient's insurance was [place] [address] [place] [address] and spoke with Maylin. Maylin asked that the patient's referral, face sheet and visit notes be faxed to . Director Of [employer] Strategy faxed over requested documents. Patient appointment confirmation letter generated and mailed to her home address. Patient to call to schedule an appointment. Processed Referral: [facility] WPtel: [address] [place] [address] Patient notified that it has been advised that she be seen by Neurology. Patient agreed to be seen and prefers to be seen by a provider in the [place], [place] area. Patient denies any concerns with transportation, and prefers to schedule her own appointment. Director Of [employer] Strategy placed a call out to [facility] and spoke with [...]
--- OUTSIDE RECORDS SUMMARY | 2023-12-07 02:15 | XMS_ITS | CCD ---
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 Name Role Phone Palomo KING, Anna Primary Care Provider Unav ailable Unavailable Chronic Care Management Unavaila ble Summary Purpose DataExchange Insurance Providers Payer name Policy type / Coverage type Covered republican ID Effective Begin Date Effective End Date SUKI MAYO [id number] Unknown Unknown Family history Mother Diagnosis Age [...] Unknown Disability 05/31/[address]: 520325314 Has never s moked or chewed tobacco 05/31/[address]: 245400765 Never drinks alco hol 05/31/2018 Has the [...] ICD-10: R51 ICD-9: 784.0 10/03/2018 Inactive Other detention (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 ICD-10: Z79.899 ICD-9: V58.69 04/25/2019 Inactive Type 2 diabetes mellitus wit hout complications ICD-10: E11.9 ICD-9: 250.00 10/03/2018 Inactive Wheezing ICD-10: R06.2 ICD-9: 786.07 08/08/2018 Inactive Abnormal urine finding ICD-10: R82.90 ICD-9: 791.9 09/24/2020 Resolved Abrasion of toe ICD-10: S90.416A ICD-9: 917.0 02/14/2020 Resolved Acute upper respiratory infe ction, unspecified ICD-10: J06.9 ICD-9: 465.9 09/04/2019 Resolved [place] eye ICD-10: H10.029 ICD-9: 372.03 12/29/2019 Resolved [...] R60.9 ICD-9: 782.3 07/11/2018 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-inflammatories (NSAID) ICD-10: Z79.1 ICD-9: V58.64 06/13/2018 Active Medications Medication Codes Instructions Start Date Stop Date Status Fill Instructions lisinopril 2.5 mg tablet RxNorm: 653500 TAKE 1 TABLET BY MOUTH DAILY 01/06/20 21 2020 Inactive gabapentin 300 mg capsule RxNorm: 429795 TAKE 1 CAPSULE BY MOUTH THREE TIMES A DAY 01/06/20 21 2020 Inactive Singulair 10 mg tablet RxNorm: 406143 TAKE (1) TABLET BY MOUTH DAILY 01/06/202020 Inactive metformin 1,000 mg tablet RxNorm: 418039 1 Tablet(s) Oral two times a day 01/06/20 21 2020 Inactive atorvastatin 40 mg tablet RxNorm: 381273 1 Tablet(s) Oral every day 12/06/19 21 2020 Inactive omeprazole 20 mg capsule,delayed release RxNorm: 299795 1 Capsule(s) Oral every evening 11/24/19 21 2020 Inactive famotidine 10 mg tablet RxNorm: 491294 1 Tablet(s) Oral every morning 11/24/192020 Inactive Alcohol Prep Pads RxNorm: 969535 USE EACH MORNING 10/14/19 21 2020 Inactive omeprazole 20 mg capsule,delayed release RxNorm: 502621 1 Capsule(s) Oral two times a day 10/13/19 21 2021 Inactive omeprazole 20 mg capsule,delayed release RxNorm: 174909 TAKE 1 CAPSULE BY MOUTH EVERY DAY 10/08/19 21 2021 Inactive Macrobid 100 mg capsule RxNorm: 262778 1 Capsule(s) Oral every 12 hours with food 10/01/20 20 2020 Inactive omeprazole 20 mg capsule,delayed release RxNorm: 891287 1 Capsule(s) Oral two times a day 09/24/20 20 2021 Inactive metformin 1,000 mg tablet RxNorm: 229641 1 Tablet(s) Oral two times a day 08/19/20 20 2020 Inactive start on September 11, 2020 metformin 500 mg tablet RxNorm: 945743 1 Tablet(s) Oral two times a day take with 500mg to equal 1000mg 08/19/20 20 2019 Inactive cetirizine 10 mg tablet RxNorm: 6969933 TAKE (1) TABLET BY MOUTH DAILY 07/11/20 20 2020 Inactive gabapentin 300 mg capsule RxNorm: 511263 TAKE 1 CAPSULE BY MOUTH THREE TIMES DAILY 07/11/20 20 2020 Inactive metformin 500 mg tablet RxNorm: 520344 1 Tablet(s) Oral two times a day 07/08/20 20 2019 Inactive loperamide 2 mg tablet RxNorm: 281240 1 Tablet(s) Oral as needed take one tablet after each loose stool, maximum of 8 tablets in 24 hours 06/24/20 20 2021 Inactive Sudafed 12 Hour 120 mg tablet,extended release RxNorm: 0719545 TAKE 1 TABLET BY MOUTH EVERY 12 HOURS NEEDED 06/11/20 20 2019 Inactive hydrochlorothiazide 25 mg tablet RxNorm: 476340 TAKE (1) TABLET BY MOUTH EVERY DAY 06/11/20 20 2019 Inactive omeprazole 20 mg capsule,delayed release RxNorm: 122141 TAKE 1 CAPSULE BY MOUTH EVERY DAY 05/14/20 20 2020 Inactive metformin 500 mg tablet RxNorm: 837646 1 Tablet(s) Oral every day 05/12/20 20 2019 Inactive True Metrix Glucose Test Strip RxNorm: 1 Test Strips Miscellaneous two times a day as needed 04/17/20 No Stop Date Active metformin 500 mg tablet RxNorm: 638913 1 Tablet(s) Oral every day 04/17/20 20 2019 Inactive diclofenac sodium 75 mg tablet,delayed release RxNorm: 678884 1 Tablet(s) PO BID 04/14/20 20 2021 Inactive This refill negates all other refills of this medication Sudafed 12 Hour 120 mg tablet,extended release RxNorm: 3814603 TAKE 1 TABLET BY MOUTH EVERY 12 HOURS NEEDED 03/14/20 20 2019 Inactive True Metrix Glucose Test Strip RxNorm: 1 Test Strips Miscellaneous every morning 03/13/20 20 2019 Inactive 100/container True Metrix Glucose Test Strip RxNorm: 1 Test Strips Miscellaneous QAM 02/22/20 20 2019 Inactive 100/container loperamide 2 mg tablet RxNorm: 388855 1 Tablet(s) Oral as needed take one tablet after each loose stool, maximum of 8 tablets in 24 hours 02/22/20 20 2019 Inactive levothyroxine 50 mcg tablet RxNorm: 783781 1 Tablet(s) PO daily 01/17/20 20 2020 Inactive cetirizine 10 mg tablet RxNorm: 4379468 1 Tablet(s) PO daily 01/17/20 20 2019 Inactive loperamide 2 mg tablet RxNorm: 103325 1 Tablet(s) Oral as needed take one tablet after each loose stool, maximum of 8 tablets in 24 hours 01/17/20 20 2019 Inactive quetiapine 100 mg tablet RxNorm: 600675 1 Tablet(s) Oral every night at bedtime 01/17/20 20 2019 Inactive gabapentin 300 mg capsule RxNorm: 718945 1 Capsule(s) PO TID 01/17/20 20 2019 Inactive levothyroxine 50 mcg tablet RxNorm: 889738 1 Tablet(s) PO daily 01/15/20 20 2019 Inactive lisinopril 2.5 mg tablet RxNorm: 098025 1 Tablet(s) PO daily 01/15/20 20 2020 Inactive gabapentin 300 mg capsule RxNorm: 149463 1 Capsule(s) PO TID 01/15/20 20 2019 Inactive cetirizine 10 mg tablet RxNorm: 3984505 1 Tablet(s) PO daily 01/15/20 20 2019 Inactive Singulair 10 mg tablet RxNorm: 805117 1 Tablet(s) PO daily 01/15/20 20 2020 Inactive gentamicin 0.3 % eye drops RxNorm: 575417 1 Drop(s) ophthalmic (eye) four times a day 12/29/19 20 2019 Inactive gentamicin 0.3 % eye drops RxNorm: 912780 1 Drop(s) ophthalmic (eye) four times a day 12/29/19 20 2019 Inactive gentamicin 0.3 % eye drops RxNorm: 578904 1 Drop(s) ophthalmic (eye) four times a day 12/29/19 20 2019 Inactive hydrochlorothiazide 25 mg tablet RxNorm: 781038 1 Tablet(s) Oral every day 12/21/19 20 2019 Inactive Sudafed 12 Hour 120 mg tablet,extended release RxNorm: 3427214 TAKE (1) TABLET BY MOUTH EVERY 12 HOURS NEEDED 12/21/19 20 2019 Inactive loperamide 2 mg tablet RxNorm: 175553 1 Tablet(s) Oral as needed take one tablet after each loose stool, maximum of 8 tablets in 24 hours 12/11/19 20 2019 Inactive loperamide 2 mg tablet RxNorm: 716760 1 Tablet(s) Oral as needed take one tablet after each loose stool, maximum of 8 tablets in 24 hours 12/11/19 20 2019 Inactive atorvastatin 40 mg tablet RxNorm: 268057 1 Tablet(s) Oral every day 11/29/19 20 2020 Inactive quetiapine 100 mg tablet RxNorm: 188358 1 Tablet(s) Oral every night at bedtime 11/28/19 2019 Inactive sertraline 100 mg tablet RxNorm: 697707 1 Tablet(s) Oral 11/28/19 20 2019 Inactive omeprazole 20 mg capsule,delayed release RxNorm: 730227 1 Capsule(s) Oral every day 11/20/19 20 2019 Inactive amoxicillin 250 mg capsule RxNorm: 868002 1 Capsule(s) Oral three times a day 11/07/19 20 2019 Inactive multivitamin with iron-mineral tablet RxNorm: 1 Tablet(s) Oral every day 10/29/19 20 2021 Inactive cetirizine 10 mg tablet RxNorm: 3200581 1 Tablet(s) PO daily 10/20/19 20 2019 Inactive This refill negates all other refills of this medication. Please do not auto refill Singulair 10 mg tablet RxNorm: 213229 1 Tablet(s) PO daily 10/20/19 20 2019 Inactive This refill negates all other refills of this medication gabapentin 300 mg capsule RxNorm: 013673 1 Capsule(s) PO TID 10/20/19 20 2019 Inactive lisinopril 2.5 mg tablet RxNorm: 362341 1 Tablet(s) PO daily 10/20/19 20 2019 Inactive levothyroxine 50 mcg tablet RxNorm: 810313 1 Tablet(s) PO daily 10/20/192019 Inactive This refill negates all other refills of this medication fenugreek seed extract 500 mg capsule RxNorm: 1 Capsule(s) Oral three times a day 10/17/19 20 2021 Inactive hydrochlorothiazide 25 mg tablet RxNorm: 369273 1 Tablet(s) Oral every day 10/17/19 20 2019 Inactive Alcohol Prep Pads RxNorm: 458420 1 Patch TOP QAM 10/16/192020 Inactive loperamide 2 mg tablet RxNorm: 365071 1 Tablet(s) Oral as needed take one [...] 2019 Inactive hydrochlorothiazide 25 mg tablet RxNorm: 681805 1 Tablet(s) Oral every day 09/19/20 19 2019 Inactive Sudafed 12 Hour 120 mg tablet,extended release RxNorm: 5128848 1 Tablet(s) Oral every 12 hours as needed 09/11/20 19 2018 Inactive omeprazole 20 mg capsule,delayed release RxNorm: 042074 1 Capsule(s) Oral every day 09/07/20 19 2019 Inactive Sudafed 12 Hour 120 mg tablet,extended release RxNorm: 1806088 1 Tablet(s) Oral every 12 hours as needed 09/04/20 19 2018 Inactive pantoprazole 40 mg tablet,delayed release RxNorm: 093783 1 Tablet(s) Oral every day 08/24/20 19 2018 Inactive discontinue any other H2Blkr. and PPI albuterol sulfate 2.5 mg/3 mL (0.083 %) solution for nebulization RxNorm: 239050 1 Vial Inhalation every four hours as needed as needed for dyspnea 08/17/20 19 2019 Inactive 60/box. This refill negates all other refills of this medication. Please do not fill early. Please do not auto refill. Symbicort 160 mcg-4.5 mcg/actuation HFA aerosol inhaler RxNorm: 3419535 2 Puff(s) INH BID 08/17/20 19 No Stop Date Active Alcohol Prep Pads RxNorm: 166052 1 Patch TOP QAM 08/17/20 19 2019 Inactive Ventolin HFA 90 mcg/actuation aerosol inhaler RxNorm: 313214 2 Puff(s) INH QID 08/09/20 2019 Inactive Please do not fill early. Please do not auto refill. This refill negates all other refills of this medication True Metrix Glucose Test Strip RxNorm: 1 Test Strips Miscellaneous QAM 08/09/20 19 2019 Inactive 100/container atorvastatin 40 mg tablet RxNorm: 164598 1 Tablet(s) Oral every day 07/04/20 19 2019 Inactive levmetamfetamine 50 mg nasal inhaler RxNorm: 1 Unit(s) NASAL Q3-4H Do not use more than every 3 hours or 8 times/24hours 06/26/20 19 2021 Inactive Please do not auto refill. This refill negates all other refills of this medication buspirone 7.5 mg tablet RxNorm: 738035 1 Tablet(s) PO BID 06/26/20 19 2020 Inactive This refill negates all other refills of this medication hydrochlorothiazide 12.5 mg tablet RxNorm: 669193 1 Tablet(s) PO QAM 06/26/20 19 2019 Inactive Ventolin HFA 90 mcg/actuation aerosol inhaler RxNorm: 149704 2 Puff(s) INH QID 06/26/20 19 2018 Inactive Please do not fill early. Please do not auto refill. This refill negates all other refills of this medication Singulair 10 mg tablet RxNorm: 653924 1 Tablet(s) PO daily 06/26/20 19 2019 Inactive This refill negates all other refills of this medication cetirizine 10 mg tablet RxNorm: 9047979 1 Tablet(s) PO daily 06/26/20 19 2019 Inactive This refill negates all other refills of this medication. Please do not auto refill levothyroxine 50 mcg tablet RxNorm: 429514 1 Tablet(s) PO daily 06/26/20 19 2019 Inactive This refill negates all other refills of this medication diclofenac sodium 75 mg tablet,delayed release RxNorm: 631645 1 Tablet(s) PO BID 06/26/20 19 2019 Inactive This refill negates all other refills of this medication ranitidine 150 mg tablet RxNorm: 283922 1 Tablet(s) PO BID 06/26/20 19 2018 Inactive This refill negates all other refills of this medication Calcium 600-D3 Plus (mag-zinc) 600 mg calcium-800 unit-50 mg tablet RxNorm: 1 Tablet(s) PO daily take an additonal tablet for itching. 06/26/20 19 2018 Inactive This refill negates all other refills of this medication albuterol sulfate 2.5 mg/3 mL (0.083 %) solution for nebulization RxNorm: 075441 1 Vial INH QID 06/26/20 19 2018 Inactive 60/box. This refill negates all other refills of this medication. Please do not fill early. Please do not auto refill. lisinopril 2.5 mg tablet RxNorm: 780726 1 Tablet(s) PO daily 06/21/20 19 2019 Inactive gabapentin 300 mg capsule RxNorm: 946868 1 Capsule(s) PO TID 06/21/20 19 2019 Inactive atorvastatin 20 mg tablet RxNorm: 218787 1 Tablet(s) PO QHS 06/07/20 19 2018 Inactive This refill negates all other refills of this medication TRUEplus Lancets 30 gauge RxNorm: 1 Lancets Miscellaneous QAM 05/29/20 19 2018 Inactive 100/box gabapentin 300 mg capsule RxNorm: 736202 1 Capsule(s) PO TID 05/03/20 19 2018 Inactive Flintsmaury Complete (iron) 18 mg iron chewable tablet RxNorm: 1 Tablet(s) PO daily 04/04/20 19 2021 Inactive This refill negates all other refills of this medication gabapentin 300 mg capsule RxNorm: 878832 1 Capsule(s) PO TID as needed 02/01/20 19 2018 Inactive True Metrix Glucose Test Strip RxNorm: 1 Test Strips Miscellaneous QAM 02/01/20 19 2018 Inactive 100/container Alcohol Prep Pads RxNorm: 138902 1 Patch TOP QAM 02/01/20 19 2018 Inactive TRUEplus Lancets 30 gauge RxNorm: 1 Lancets Miscellaneous QAM 02/01/20 19 2018 Inactive 100/box lisinopril 2.5 mg tablet RxNorm: 329746 1 Tablet(s) PO daily 12/28/19 19 2018 Inactive ranitidine 150 mg tablet RxNorm: 666202 1 Tablet(s) PO BID 10/21/19 19 2018 Inactive This refill negates all other refills of this medication albuterol sulfate 2.5 mg/3 mL (0.083 %) solution for nebulization RxNorm: 221516 1 Vial INH QID 10/21/19 19 2018 [...] this medication gabapentin 300 mg capsule RxNorm: 372891 1 Capsule(s) PO TID as needed 10/21/19 19 2018 Inactive atorvastatin 20 mg tablet RxNorm: 813872 1 Tablet(s) PO QHS 10/21/19 19 2018 Inactive This refill negates all other refills of this medication trazodone 50 mg tablet RxNorm: 067713 1 Tablet(s) PO QHS 10/21/192018 Inactive This refill negates all other refills of this medication Ventolin HFA 90 mcg/actuation aerosol inhaler RxNorm: 285654 2 Puff(s) INH QID 10/21/19 19 2018 [...] this medication Singulair 10 mg tablet RxNorm: 095754 1 Tablet(s) PO daily 10/21/19 19 2018 Inactive This refill negates all other refills of this medication buspirone 7.5 mg tablet RxNorm: 830887 1 Tablet(s) PO BID 10/21/19 19 2018 Inactive This refill negates all other refills of this medication diclofenac sodium 75 mg tablet,delayed release RxNorm: 040336 1 Tablet(s) PO BID 10/21/19 19 2018 Inactive This refill negates all other refills of this medication hydrochlorothiazide 12.5 mg tablet RxNorm: 027147 1 Tablet(s) PO QAM 10/21/19 19 2018 Inactive metoprolol succinate ER 50 mg tablet,extended release 24 hr RxNorm: 809710 1 Tablet(s) PO daily 10/21/19 19 2018 Inactive This refill negates all other refills of this medication levothyroxine 50 mcg tablet RxNorm: 931517 1 Tablet(s) PO daily 10/21/19 19 2018 Inactive This refill negates all other refills of this medication cetirizine 10 mg tablet RxNorm: 3292409 1 Tablet(s) PO daily 10/21/19 19 2018 Inactive This refill negates all other refills of this medication. Please do not auto refill Flintstones Complete (iron) 18 mg iron chewable tablet RxNorm: 1 Tablet(s) PO daily 10/21/192018 Inactive This refill negates all other refills of this medication buspirone 7.5 mg tablet RxNorm: 236945 1 Tablet(s) PO BID 10/12/192018 Inactive cetirizine 10 mg tablet RxNorm: 8311580 1 Tablet(s) PO daily 09/28/202018 Inactive Guaiasorb DM 10 mg-100 mg/5 mL oral liquid RxNorm: 756078 10 Milliliter(s) PO As needed every 4 hr 09/24/20 18 2018 Inactive Vicks Vaporub 4.7 %-1.2 %-2.6 % topical ointment RxNorm: 0598242 1 Application TOP TID 09/24/20 18 2018 Inactive levmetamfetamine 50 mg nasal inhaler RxNorm: 1 Unit(s) NASAL Q3-4H 09/24/20 18 2017 Inactive sertraline 50 mg tablet RxNorm: 018462 1 Tablet(s) PO daily 09/09/20 18 2018 Inactive Please note dose trazodone 50 mg tablet RxNorm: 238239 1 Tablet(s) PO QHS 09/06/20 18 2018 Inactive sertraline 50 mg tablet RxNorm: 319209 1 Tablet(s) PO daily 09/06/20 18 2017 Inactive amoxicillin 500 mg tablet RxNorm: 677725 1 Tablet(s) PO Q12H 08/31/20 18 2017 Inactive albuterol sulfate 2.5 mg/3 mL (0.083 %) solution for nebulization RxNorm: 190466 1 Vial INH QID 08/10/20 18 2018 Inactive 60/box. Please do not fill early. Please do not auto refill. Prozac 10 mg capsule RxNorm: 670914 1 Capsule(s) PO daily 08/09/20 18 2017 Inactive buspirone 7.5 mg tablet RxNorm: 935481 1 Tablet(s) PO BID 08/09/20 18 2018 Inactive gabapentin 300 mg capsule RxNorm: 531755 1 Capsule(s) PO TID as needed 08/01/20 18 2018 Inactive hydrochlorothiazide 12.5 mg tablet RxNorm: 828277 1 Tablet(s) PO QAM 08/01/20 18 2018 Inactive ranitidine 150 mg tablet RxNorm: 086451 1 Tablet(s) PO BID 08/01/20 18 2018 Inactive Macrobid 100 mg capsule RxNorm: 600249 1 Capsule(s) PO Q12H 06/21/20 18 2017 Inactive Singulair 10 mg tablet RxNorm: 482534 1 Tablet(s) PO daily 06/14/20 18 2018 Inactive Ventolin HFA 90 mcg/actuation aerosol inhaler RxNorm: 8228808 2 Puff(s) INH QID 06/14/20 18 2018 Inactive Singulair 10 mg tablet RxNorm: 155324 1 Tablet(s) PO daily 06/14/20 18 2017 Inactive buspirone 7.5 mg tablet RxNorm: 453583 1 Tablet(s) PO BID 06/14/20 18 2017 Inactive Prozac 10 mg capsule RxNorm: 606274 1 Capsule(s) PO daily 06/14/20 18 2017 Inactive Neilmed Pediatric Sinus Rinse Refill packet RxNorm: 1 Unit Dose NASAL PRN 05/31/20 18 2021 Inactive diclofenac sodium 75 mg tablet,delayed release RxNorm: 269887 1 Tablet(s) PO BID 05/31/20 18 2017 Inactive lisinopril 2.5 mg tablet RxNorm: 394059 1 Tablet(s) PO daily 05/31/20 18 2017 Inactive metoprolol succinate ER 50 mg tablet,extended release 24 hr RxNorm: 672101 1 Tablet(s) PO daily 05/31/20 18 2017 Inactive levothyroxine 50 mcg tablet RxNorm: 874882 1 Tablet(s) PO daily 05/31/20 18 2017 Inactive TRUEplus Lancets 30 gauge RxNorm: 1 Lancets Miscellaneous QAM 05/31/20 18 2017 Inactive 100/box Ventolin HFA 90 mcg/actuation aerosol inhaler RxNorm: 348050 2 Puff(s) INH QID 05/31/20 18 2017 Inactive Aleve 220 mg capsule RxNorm: 5919525 1 Capsule(s) PO BID 05/31/20 18 2018 Inactive ranitidine 150 mg tablet RxNorm: 066355 1 Tablet(s) PO BID 05/31/20 18 2017 Inactive gabapentin 300 mg capsule RxNorm: 124135 1 Capsule(s) PO TID as needed 05/31/20 18 2017 Inactive atorvastatin 20 mg tablet RxNorm: 099600 1 Tablet(s) PO QHS 05/31/20 18 2017 Inactive True Metrix Glucose Test Strip RxNorm: 1 Test Strips Miscellaneous QAM 05/31/20 18 2017 Inactive 50/container Calcium 600-D3 Plus 600 mg calcium-800 unit-50 mg tablet RxNorm: 1 Tablet(s) PO daily take an additonal tablet for itching. 05/31/20 18 2017 Inactive hydrochlorothiazide 12.5 mg tablet RxNorm: 660924 1 Tablet(s) PO QAM 05/31/20 18 2017 Inactive Flintstones Complete (iron) 18 mg iron chewable tablet RxNorm: 1 Tablet(s) PO daily 05/31/20 18 2017 Inactive d-mannose oral powder RxNorm: PO 18 2021 Inactive True Metrix Glucose Meter RxNorm: miscellaneous 08/17/20 19 2018 Inactive sertraline 50 mg tablet RxNorm: 916986 1 Tablet(s) PO daily 11/28/19 20 2019 Inactive loperamide 2 mg tablet RxNorm: 474319 oral 09/29/20 19 2018 Inactive Symbicort 160 mcg-4.5 mcg/actuation HFA aerosol inhaler RxNorm: 2017369 2 Puff(s) INH BID 08/17/20 19 2018 Inactive Medication Administered No Medication Administered data Procedures Procedure Codes Date Enigma Fany Assessment CPT-4: DSWA 12/01 Urinalysis, dip stick CPT-4: 80290 09/24/2020 Patient Health Questionnaire CPT-4: DPHQ Electrocardiogram CPT-4: 92346 05/14/2020 Tobacco Assessment/Screening CPT-4: TCA Fall Risk Assessment SNOMED CT: 21697883 4 CPT-4: DFRA 01/01/2020 Functional Assessment CPT-4: DFA 01/01/2020 Enigma Fany Assessment CPT-4: DSWA 11/04 Patient Health Questionnaire CPT-4: DPHQ Enigma Fany Assessment CPT-4: DSWA 10/03 Hypertension CPT-4: HTN 10/17/2019 Fall Risk Assessment SNOMED CT: 03418378 4 CPT-4: DFRA 09/19/2019 Functional Assessment CPT-4: DFA 09/19/2019 Urinalysis, dip stick CPT-4: 17893 06/21/2019 Tobacco Assessment/Screening CPT-4: TCA Patient Health Questionnaire CPT-4: DPHQ AHA/REBECCA Classification Assessment CPT-4: DAHA 04/25/2019 Controlled Substance Report CPT-4: CTRSU 04/03 Urinalysis, dip stick CPT-4: 06053 03/28/2019 Urinalysis, dip stick CPT-4: 15362 03/28/2019 O9U-Uxrqjlmspqgjwem CPT-4: 58722 Unknown Z7N-Emrrlpopmcakqrb CPT-4: 04171 Unknown V9I-Ebfqzyufgkeoegl CPT-4: 18855 Unknown U5W-Trqiiejbcjleake CPT-4: 49366 Unknown Y2C-Ucsvnpaljihilee CPT-4: 57264 Unknown R7I-Kgbesulxqnddkgh CPT-4: 52144 Unknown Gynecology Referral SNOMED CT: 344913677 CPT-4: R14 Unknown Reason For Visit No Reason For Visit data Plan of Care Planned Activity Notes Codes Status Date Referral: Pending Gynecology Referral Information Referral Processed Referral: Pending Pulmonolog y Referral Information Referral Processed Referral: Pending Psychiatry Referral Information Referral Initiated Referral: Pending Respirator y Services Referral Information Referral Initiated Referral: Pending Ophthalmol ogy Referral Information Referral Initiated Referral: [facility] WPtel: [address] [place] [address] [address] [place] [address] [place] Family Coach placed a call out to the patient to notify her that it has been recommended that she be seen by a urologist. Patient agreed to be seen, does not have a provider of choice and no transportation issues. Family Coach faxed referral and clinical notes to [facility] in [place], [place] near the patient's home. Patient to [...] seen and prefers a provider in the [place] or [place] area. Family Coach placed a call out to everyone listed in the area and the only location that was able to accept the patient's insurance was [place] [address] [place] [address] and spoke with Maylin. Maylin asked that the patient's referral, face sheet and visit notes be faxed to . Family Coach faxed over requested documents. Patient appointment confirmation letter generated and mailed to her home address. Patient to call to schedule an appointment. Processed Referral: [facility] WPtel: [address] [place] [address] Patient notified that it has been advised that she be seen by Neurology. Patient agreed to be seen and prefers to be seen by a provider in the [place], [place] area. Patient denies any concerns with transportation, and prefers to schedule her own appointment. Family Coach placed a call out to [facility] and spoke with Neeraj Mcfarland: who confirmed that their office is able to accept new patients and the patient's insurance. After confirming the providers fax number, staff writer faxed over the patient's referral, and [...]
--- OUTSIDE RECORDS SUMMARY | 2023-12-07 02:15 | XMS_ITS | CCD ---
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 Unknown Has never used illegal drugs 05/31/2018 DNR Order/ Advanced Directive Unknown Full Code 05/31/2018 Allergies, Adverse Reactions, Alerts Substance Reaction Codes Entered Date Inactivated Date Status OxyContin itch, RxNorm: 495634 01/13/2021 No Inactive Da te Active *No known food allergies Unknown 09/06/2018 No I nactive Date Active Methylprednisolone hives RxNorm: 6902 09/06/2018 No Inac tive Date Active Problems Condition Codes Effective Dates Condition St atus Elevated liver enzymes ICD-10: R74.8 ICD-9: 790.5 01/29/2021 Active Hyperlipidemia, unspecified ICD-10: E78. 5 ICD-9: 272.4 05/30/2018 Active Type 2 diabetes mellitus wit h peripheral neuropathy ICD-10: E11.42 ICD-9: 250.60 11/28/2019 Active Chronic kidney disease, stag e 2 (mild) ICD-10: N18.2 ICD-9: 585.2 10/29/2020 Active GERD (gastroesophageal reflu x disease) ICD-10: K21.9 ICD-9: 530.81 09/07/2019 Active History of bladder surgery ICD-10: Z98.8 90 ICD-9: V45.89 01/13/2021 Active Hypertensive heart disease w ith heart failure ICD-10: I11.0 ICD-9: 402.91 04/25/2019 Active Urinary retention with incom plete bladder [...] R51 ICD-9: 784.0 10/03/2018 Inactive Other senior living (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 ICD-10: Z79.899 ICD-9: V58.69 04/25/2019 Inactive Type 2 diabetes mellitus wit hout complications ICD-10: E11.9 ICD-9: 250.00 10/03/2018 Inactive Wheezing ICD-10: R06.2 ICD-9: 786.07 08/08/2018 Inactive Abnormal urine finding ICD-10: R82.90 ICD-9: 791.9 09/24/2020 Resolved Abrasion of toe ICD-10: S90.416A ICD-9: 917.0 02/14/2020 Resolved Acute upper respiratory infe ction, unspecified ICD-10: J06.9 ICD-9: 465.9 09/04/2019 Resolved [place] eye ICD-10: H10.029 ICD-9: 372.03 12/29/2019 Resolved [...] ICD-10: R60.9 ICD-9: 782.3 07/11/2018 Active 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 non-steroidal anti-inflammatories (NSAID) ICD-10: Z79.1 ICD-9: V58.64 06/13/2018 Active Medications Medication Codes Instructions Start Date Stop Date Status Fill Instructions levothyroxine 50 mcg tablet RxNorm: 919666 TAKE (1) TABLET BY MOUTH DAILY 02/04/202020 Inactive metformin 500 mg tablet RxNorm: 599860 1 Tablet(s) Oral two times a day take with 500mg to equal 1000mg 01/14/20 21 2020 Inactive gabapentin 300 mg capsule RxNorm: 708855 TAKE 1 CAPSULE BY MOUTH THREE TIMES A DAY 01/14/20 21 2020 Inactive lisinopril 2.5 mg tablet RxNorm: 720606 TAKE 1 TABLET BY MOUTH DAILY 01/06/20 21 2020 Inactive gabapentin 300 mg capsule RxNorm: 087052 TAKE 1 CAPSULE BY MOUTH THREE TIMES A DAY 01/06/20 21 2020 Inactive Singulair 10 mg tablet RxNorm: 747212 TAKE (1) TABLET BY MOUTH DAILY 01/06/20 21 2020 Inactive metformin 1,000 mg tablet RxNorm: 202589 1 Tablet(s) Oral two times a day 01/06/20 21 2020 Inactive atorvastatin 40 mg tablet RxNorm: 367476 1 Tablet(s) Oral every day 12/06/19 21 2020 Inactive omeprazole 20 mg capsule,delayed release RxNorm: 718619 1 Capsule(s) Oral every evening 11/24/19 21 2020 Inactive famotidine 10 mg tablet RxNorm: 971891 1 Tablet(s) Oral every morning 11/24/19 21 2020 Inactive Alcohol Prep Pads RxNorm: 238315 USE EACH MORNING 10/14/19 21 2020 Inactive omeprazole 20 mg capsule,delayed release RxNorm: 792675 1 Capsule(s) Oral two times a day 10/13/19 21 2021 Inactive omeprazole 20 mg capsule,delayed release RxNorm: 145357 TAKE 1 CAPSULE BY MOUTH EVERY DAY 10/08/19 21 2021 Inactive Macrobid 100 mg capsule RxNorm: 615222 1 Capsule(s) Oral every 12 hours with food 10/01/20 20 2020 Inactive omeprazole 20 mg capsule,delayed release RxNorm: 944205 1 Capsule(s) Oral two times a day 09/24/20 20 2021 Inactive metformin 1,000 mg tablet RxNorm: 647029 1 Tablet(s) Oral two times a day 08/19/20 20 2020 Inactive start on September 11, 2020 metformin 500 mg tablet RxNorm: 476670 1 Tablet(s) Oral two times a day take with 500mg to equal 1000mg 08/19/20 20 2019 Inactive gabapentin 300 mg capsule RxNorm: 237268 TAKE 1 CAPSULE BY MOUTH THREE TIMES DAILY 07/11/20 20 2020 Inactive cetirizine 10 mg tablet RxNorm: 5479392 TAKE (1) TABLET BY MOUTH DAILY 07/11/20 20 2020 Inactive metformin 500 mg tablet RxNorm: 296902 1 Tablet(s) Oral two times a day 07/08/20 20 2019 Inactive loperamide 2 mg tablet RxNorm: 972930 1 Tablet(s) Oral as needed take one tablet after each loose stool, maximum of 8 tablets in 24 hours 06/24/20 20 2021 Inactive Sudafed 12 Hour 120 mg tablet,extended release RxNorm: 3743510 TAKE 1 TABLET BY MOUTH EVERY 12 HOURS NEEDED 06/11/20 20 2019 Inactive hydrochlorothiazide 25 mg tablet RxNorm: 108515 TAKE (1) TABLET BY MOUTH EVERY DAY 06/11/20 20 2019 Inactive omeprazole 20 mg capsule,delayed release RxNorm: 494338 TAKE 1 CAPSULE BY MOUTH EVERY DAY 05/14/20 20 2020 Inactive metformin 500 mg tablet RxNorm: 507118 1 Tablet(s) Oral every day 05/12/20 20 2019 Inactive True Metrix Glucose Test Strip RxNorm: 1 Test Strips Miscellaneous two times a day as needed 04/17/20 No Stop Date Active metformin 500 mg tablet RxNorm: 459831 1 Tablet(s) Oral every day 04/17/20 20 2019 Inactive diclofenac sodium 75 mg tablet,delayed release RxNorm: 781025 1 Tablet(s) PO BID 04/14/20 20 2021 Inactive This refill negates all other refills of this medication Sudafed 12 Hour 120 mg tablet,extended release RxNorm: 8615958 TAKE 1 TABLET BY MOUTH EVERY 12 HOURS NEEDED 03/14/20 20 2019 Inactive True Metrix Glucose Test Strip RxNorm: 1 Test Strips Miscellaneous every morning 03/13/20 20 2019 Inactive 100/container True Metrix Glucose Test Strip RxNorm: 1 Test Strips Miscellaneous QAM 02/22/20 20 2019 Inactive 100/container loperamide 2 mg tablet RxNorm: 976917 1 Tablet(s) Oral as needed take one tablet after each loose stool, maximum of 8 tablets in 24 hours 02/22/20 20 2019 Inactive cetirizine 10 mg tablet RxNorm: 1922328 1 Tablet(s) PO daily 01/17/20 20 2019 Inactive loperamide 2 mg tablet RxNorm: 881465 1 Tablet(s) Oral as needed take one tablet after each loose stool, maximum of 8 tablets in 24 hours 01/17/20 20 2019 Inactive quetiapine 100 mg tablet RxNorm: 031537 1 Tablet(s) Oral every night at bedtime 01/17/20 20 2019 Inactive levothyroxine 50 mcg tablet RxNorm: 875764 1 Tablet(s) PO daily 01/17/20 20 2020 Inactive gabapentin 300 mg capsule RxNorm: 937552 1 Capsule(s) PO TID 01/17/20 20 2019 Inactive levothyroxine 50 mcg tablet RxNorm: 860307 1 Tablet(s) PO daily 01/15/20 20 2019 Inactive lisinopril 2.5 mg tablet RxNorm: 993602 1 Tablet(s) PO daily 01/15/20 20 2020 Inactive gabapentin 300 mg capsule RxNorm: 973189 1 Capsule(s) PO TID 01/15/20 20 2019 Inactive cetirizine 10 mg tablet RxNorm: 7716085 1 Tablet(s) PO daily 01/15/20 20 2019 Inactive Singulair 10 mg tablet RxNorm: 675366 1 Tablet(s) PO daily 01/15/20 20 2020 Inactive gentamicin 0.3 % eye drops RxNorm: 909869 1 Drop(s) ophthalmic (eye) four times a day 12/29/19 20 2019 Inactive gentamicin 0.3 % eye drops RxNorm: 892478 1 Drop(s) ophthalmic (eye) four times a day 12/29/19 20 2019 Inactive gentamicin 0.3 % eye drops RxNorm: 022881 1 Drop(s) ophthalmic (eye) four times a day 12/29/19 20 2019 Inactive hydrochlorothiazide 25 mg tablet RxNorm: 277023 1 Tablet(s) Oral every day 12/21/19 20 2019 Inactive Sudafed 12 Hour 120 mg tablet,extended release RxNorm: 5935325 TAKE (1) TABLET BY MOUTH EVERY 12 HOURS NEEDED 12/21/19 20 2019 Inactive loperamide 2 mg tablet RxNorm: 178296 1 Tablet(s) Oral as needed take one tablet after each loose stool, maximum of 8 tablets in 24 hours 12/11/19 20 2019 Inactive loperamide 2 mg tablet RxNorm: 169928 1 Tablet(s) Oral as needed take one tablet after each loose stool, maximum of 8 tablets in 24 hours 12/11/19 20 2019 Inactive atorvastatin 40 mg tablet RxNorm: 405070 1 Tablet(s) Oral every day 11/29/19 20 2020 Inactive quetiapine 100 mg tablet RxNorm: 722765 1 Tablet(s) Oral every night at bedtime 11/28/19 20 2019 Inactive sertraline 100 mg tablet RxNorm: 566110 1 Tablet(s) Oral 11/28/19 20 2019 Inactive omeprazole 20 mg capsule,delayed release RxNorm: 941643 1 Capsule(s) Oral every day 11/20/19 20 2019 Inactive amoxicillin 250 mg capsule RxNorm: 957921 1 Capsule(s) Oral three times a day 11/07/19 20 2019 Inactive multivitamin with iron-mineral tablet RxNorm: 1 Tablet(s) Oral every day 10/29/19 20 2021 Inactive cetirizine 10 mg tablet RxNorm: 0708752 1 Tablet(s) PO daily 10/20/19 20 2019 Inactive This refill negates all other refills of this medication. Please do not auto refill Singulair 10 mg tablet RxNorm: 677701 1 Tablet(s) PO daily 10/20/19 20 2019 Inactive This refill negates all other refills of this medication gabapentin 300 mg capsule RxNorm: 606051 1 Capsule(s) PO TID 10/20/19 20 2019 Inactive lisinopril 2.5 mg tablet RxNorm: 878512 1 Tablet(s) PO daily 10/20/19 20 2019 Inactive levothyroxine 50 mcg tablet RxNorm: 277435 1 Tablet(s) PO daily 10/20/19 20 2019 Inactive This refill negates all other refills of this medication fenugreek seed extract 500 mg capsule RxNorm: 1 Capsule(s) Oral three times a day 10/17/19 20 2021 Inactive hydrochlorothiazide 25 mg tablet RxNorm: 371569 1 Tablet(s) Oral every day 10/17/19 20 2019 Inactive Alcohol Prep Pads RxNorm: 237032 1 Patch TOP QAM 10/16/19 20 2020 Inactive loperamide 2 mg tablet RxNorm: 744203 1 Tablet(s) Oral as needed take one [...] 2019 Inactive hydrochlorothiazide 25 mg tablet RxNorm: 961300 1 Tablet(s) Oral every day 09/19/20 19 2019 Inactive Sudafed 12 Hour 120 mg tablet,extended release RxNorm: 4991612 1 Tablet(s) Oral every 12 hours as needed 09/11/20 19 2018 Inactive omeprazole 20 mg capsule,delayed release RxNorm: 126678 1 Capsule(s) Oral every day 09/07/2021 11/17/ 2020 Inactive Sudafed 12 Hour 120 mg tablet,extended release RxNorm: 1835071 1 Tablet(s) Oral every 12 hours as needed 09/04/20 19 2018 Inactive pantoprazole 40 mg tablet,delayed release RxNorm: 961042 1 Tablet(s) Oral every day 08/24/20 19 2018 Inactive discontinue any other H2Blkr. and PPI albuterol sulfate 2.5 mg/3 mL (0.083 %) solution for nebulization RxNorm: 510858 1 Vial Inhalation every four hours as needed as needed for dyspnea 08/17/20 19 2019 Inactive 60/box. This refill negates all other refills of this medication. Please do not fill early. Please do not auto refill. Symbicort 160 mcg-4.5 mcg/actuation HFA aerosol inhaler RxNorm: 9678889 2 Puff(s) INH BID 08/17/20 No Stop Date Active Alcohol Prep Pads RxNorm: 335610 1 Patch TOP QAM 08/17/20 19 2019 Inactive Ventolin HFA 90 mcg/actuation aerosol inhaler RxNorm: 986289 2 Puff(s) INH QID 08/09/20 19 2019 Inactive Please do not fill early. Please do not auto refill. This refill negates all other refills of this medication True Metrix Glucose Test Strip RxNorm: 1 Test Strips Miscellaneous QAM 08/09/20 19 2019 Inactive 100/container atorvastatin 40 mg tablet RxNorm: 664131 1 Tablet(s) Oral every day 07/04/20 19 2019 Inactive levmetamfetamine 50 mg nasal inhaler RxNorm: 1 Unit(s) NASAL Q3-4H Do not use more than every 3 hours or 8 times/24hours 06/26/20 19 2021 Inactive Please do not auto refill. This refill negates all other refills of this medication buspirone 7.5 mg tablet RxNorm: 755426 1 Tablet(s) PO BID 06/26/20 19 2020 Inactive This refill negates all other refills of this medication hydrochlorothiazide 12.5 mg tablet RxNorm: 625892 1 Tablet(s) PO QAM 06/26/20 19 2019 Inactive Ventolin HFA 90 mcg/actuation aerosol inhaler RxNorm: 974551 2 Puff(s) INH QID 06/26/20 19 2018 Inactive Please do not fill early. Please do not auto refill. This refill negates all other refills of this medication Singulair 10 mg tablet RxNorm: 150583 1 Tablet(s) PO daily 06/26/20 19 2019 Inactive This refill negates all other refills of this medication cetirizine 10 mg tablet RxNorm: 9013212 1 Tablet(s) PO daily 06/26/20 19 2019 Inactive This refill negates all other refills of this medication. Please do not auto refill levothyroxine 50 mcg tablet RxNorm: 634631 1 Tablet(s) PO daily 06/26/20 19 2019 Inactive This refill negates all other refills of this medication diclofenac sodium 75 mg tablet,delayed release RxNorm: 084319 1 Tablet(s) PO BID 06/26/20 19 2019 Inactive This refill negates all other refills of this medication ranitidine 150 mg tablet RxNorm: 550246 1 Tablet(s) PO BID 06/26/20 19 2018 Inactive This refill negates all other refills of this medication Calcium 600-D3 Plus (mag-zinc) 600 mg calcium-800 unit-50 mg tablet RxNorm: 1 Tablet(s) PO daily take an additonal tablet for itching. 06/26/20 19 2018 Inactive This refill negates all other refills of this medication albuterol sulfate 2.5 mg/3 mL (0.083 %) solution for nebulization RxNorm: 961550 1 Vial INH QID 06/26/20 19 2018 Inactive 60/box. This refill negates all other refills of this medication. Please do not fill early. Please do not auto refill. lisinopril 2.5 mg tablet RxNorm: 092965 1 Tablet(s) PO daily 06/21/20 19 2019 Inactive gabapentin 300 mg capsule RxNorm: 757637 1 Capsule(s) PO TID 06/21/20 19 2019 Inactive atorvastatin 20 mg tablet RxNorm: 615992 1 Tablet(s) PO QHS 06/07/20 19 2018 Inactive This refill negates all other refills of this medication TRUEplus Lancets 30 gauge RxNorm: 1 Lancets Miscellaneous QAM 05/29/20 19 2018 Inactive 100/box gabapentin 300 mg capsule RxNorm: 166478 1 Capsule(s) PO TID 05/03/20 19 2018 Inactive Flintstones Complete (iron) 18 mg iron chewable tablet RxNorm: 1 Tablet(s) PO daily 04/04/202021 Inactive This refill negates all other refills of this medication gabapentin 300 mg capsule RxNorm: 652527 1 Capsule(s) PO TID as needed 02/01/20 19 2018 Inactive True Metrix Glucose Test Strip RxNorm: 1 Test Strips Miscellaneous QAM 02/01/20 19 2018 Inactive 100/container Alcohol Prep Pads RxNorm: 812128 1 Patch TOP QAM 02/01/20 19 2018 Inactive TRUEplus Lancets 30 gauge RxNorm: 1 Lancets Miscellaneous QAM 02/01/20 19 2018 Inactive 100/box lisinopril 2.5 mg tablet RxNorm: 603672 1 Tablet(s) PO daily 12/28/192018 Inactive ranitidine 150 mg tablet RxNorm: 240281 1 Tablet(s) PO BID 10/21/192018 Inactive This refill negates all other refills of this medication albuterol sulfate 2.5 mg/3 mL (0.083 %) solution for nebulization RxNorm: 994381 1 Vial INH QID 10/21/19 19 2018 [...] this medication gabapentin 300 mg capsule RxNorm: 330719 1 Capsule(s) PO TID as needed 10/21/19 19 2018 Inactive atorvastatin 20 mg tablet RxNorm: 599887 1 Tablet(s) PO QHS 10/21/19 19 2018 Inactive This refill negates all other refills of this medication trazodone 50 mg tablet RxNorm: 361169 1 Tablet(s) PO QHS 10/21/192018 Inactive This refill negates all other refills of this medication Ventolin HFA 90 mcg/actuation aerosol inhaler RxNorm: 154221 2 Puff(s) INH QID 10/21/192018 Inactive Please do not fill early. Please do not auto refill. This refill negates all other refills of this medication Calcium 600-D3 Plus 600 mg calcium-800 unit-50 mg tablet RxNorm: 1 Tablet(s) PO daily take an additonal tablet for itching. 10/21/192018 Inactive This refill negates all other refills of this medication Singulair 10 mg tablet RxNorm: 849596 1 Tablet(s) PO daily 10/21/192018 Inactive This refill negates all other refills of this medication buspirone 7.5 mg tablet RxNorm: 681613 1 Tablet(s) PO BID 10/21/192018 Inactive This refill negates all other refills of this medication diclofenac sodium 75 mg tablet,delayed release RxNorm: 375841 1 Tablet(s) PO BID 10/21/192018 Inactive This refill negates all other refills of this medication hydrochlorothiazide 12.5 mg tablet RxNorm: 009552 1 Tablet(s) PO QAM 10/21/19 19 2018 Inactive metoprolol succinate ER 50 mg tablet,extended release 24 hr RxNorm: 809635 1 Tablet(s) PO daily 10/21/192018 Inactive This refill negates all other refills of this medication levothyroxine 50 mcg tablet RxNorm: 833316 1 Tablet(s) PO daily 10/21/19 19 2018 Inactive This refill negates all other refills of this medication cetirizine 10 mg tablet RxNorm: 5925823 1 Tablet(s) PO daily 10/21/19 19 2018 Inactive This refill negates all other refills of this medication. Please do not auto refill Flintstones Complete (iron) 18 mg iron chewable tablet RxNorm: 1 Tablet(s) PO daily 10/21/19 19 2018 Inactive This refill negates all other refills of this medication buspirone 7.5 mg tablet RxNorm: 724332 1 Tablet(s) PO BID 10/12/19 19 2018 Inactive cetirizine 10 mg tablet RxNorm: 3714979 1 Tablet(s) PO daily 09/28/20 18 2018 Inactive Guaiasorb DM 10 mg-100 mg/5 mL oral liquid RxNorm: 714244 10 Milliliter(s) PO As needed every 4 hr 09/24/20 18 2018 Inactive Vicks Vaporub 4.7 %-1.2 %-2.6 % topical ointment RxNorm: 3190877 1 Application TOP TID 09/24/20 18 2018 Inactive levmetamfetamine 50 mg nasal inhaler RxNorm: 1 Unit(s) NASAL Q3-4H 09/24/20 18 2017 Inactive sertraline 50 mg tablet RxNorm: 176276 1 Tablet(s) PO daily 09/09/20 18 2018 Inactive Please note dose trazodone 50 mg tablet RxNorm: 825207 1 Tablet(s) PO QHS 09/06/20 18 2018 Inactive sertraline 50 mg tablet RxNorm: 447400 1 Tablet(s) PO daily 09/06/20 18 2017 Inactive amoxicillin 500 mg tablet RxNorm: 118532 1 Tablet(s) PO Q12H 08/31/20 18 2017 Inactive albuterol sulfate 2.5 mg/3 mL (0.083 %) solution for nebulization RxNorm: 982260 1 Vial INH QID 08/10/20 18 2018 Inactive 60/box. Please do not fill early. Please do not auto refill. Prozac 10 mg capsule RxNorm: 600633 1 Capsule(s) PO daily 08/09/20 18 2017 Inactive buspirone 7.5 mg tablet RxNorm: 422764 1 Tablet(s) PO BID 08/09/20 18 2018 Inactive gabapentin 300 mg capsule RxNorm: 768997 1 Capsule(s) PO TID as needed 08/01/20 18 2018 Inactive hydrochlorothiazide 12.5 mg tablet RxNorm: 508843 1 Tablet(s) PO QAM 08/01/20 18 2018 Inactive ranitidine 150 mg tablet RxNorm: 657072 1 Tablet(s) PO BID 08/01/20 18 2018 Inactive Macrobid 100 mg capsule RxNorm: 648483 1 Capsule(s) PO Q12H 06/21/20 18 2017 Inactive Singulair 10 mg tablet RxNorm: 005541 1 Tablet(s) PO daily 06/14/20 18 2018 Inactive Ventolin HFA 90 mcg/actuation aerosol inhaler RxNorm: 1551257 2 Puff(s) INH QID 06/14/20 18 2018 Inactive Singulair 10 mg tablet RxNorm: 170071 1 Tablet(s) PO daily 06/14/20 18 2017 Inactive buspirone 7.5 mg tablet RxNorm: 473800 1 Tablet(s) PO BID 06/14/20 18 2017 Inactive Prozac 10 mg capsule RxNorm: 613279 1 Capsule(s) PO daily 06/14/20 18 2017 Inactive Neilmed Pediatric Sinus Rinse Refill packet RxNorm: 1 Unit Dose NASAL PRN 05/31/20 18 2021 Inactive diclofenac sodium 75 mg tablet,delayed release RxNorm: 676395 1 Tablet(s) PO BID 05/31/20 18 2017 Inactive lisinopril 2.5 mg tablet RxNorm: 868870 1 Tablet(s) PO daily 05/31/20 18 2017 Inactive metoprolol succinate ER 50 mg tablet,extended release 24 hr RxNorm: 975115 1 Tablet(s) PO daily 05/31/20 18 2017 Inactive levothyroxine 50 mcg tablet RxNorm: 727700 1 Tablet(s) PO daily 05/31/20 18 2017 Inactive TRUEplus Lancets 30 gauge RxNorm: 1 Lancets Miscellaneous QAM 05/31/20 18 2017 Inactive 100/box Ventolin HFA 90 mcg/actuation aerosol inhaler RxNorm: 440086 2 Puff(s) INH QID 05/31/20 18 2017 Inactive Aleve 220 mg capsule RxNorm: 6376877 1 Capsule(s) PO BID 05/31/20 18 2018 Inactive ranitidine 150 mg tablet RxNorm: 891681 1 Tablet(s) PO BID 05/31/20 18 2017 Inactive gabapentin 300 mg capsule RxNorm: 960113 1 Capsule(s) PO TID as needed 05/31/20 18 2017 Inactive atorvastatin 20 mg tablet RxNorm: 400630 1 Tablet(s) PO QHS 05/31/20 18 2017 Inactive True Metrix Glucose Test Strip RxNorm: 1 [facility] 05/31/20 18 2017 Inactive 50/container Calcium 600-D3 Plus 600 mg calcium-800 unit-50 mg tablet RxNorm: 1 Tablet(s) PO daily take an additonal tablet for itching. 05/31/20 18 2017 Inactive hydrochlorothiazide 12.5 mg tablet RxNorm: 419621 1 Tablet(s) PO QAM 05/31/20 18 2017 Inactive Flintstones Complete (iron) 18 mg iron chewable tablet RxNorm: 1 Tablet(s) PO daily 05/31/20 18 2017 Inactive d-mannose oral powder RxNorm: PO 18 2021 Inactive True Metrix Glucose Meter RxNorm: miscellaneous 08/17/20 19 2018 Inactive sertraline 50 mg tablet RxNorm: 039303 1 Tablet(s) PO daily 11/28/19 20 2019 Inactive loperamide 2 mg tablet RxNorm: 220917 oral 09/29/20 19 2018 Inactive Symbicort 160 mcg-4.5 mcg/actuation HFA aerosol inhaler RxNorm: 9013301 2 Puff(s) INH BID 08/17/20 19 2018 Inactive Medication Administered No Medication Administered data Procedures Procedure Codes Date Mini Mental State Exam CPT-4: DMMA 1 Annual Wellness Visit (Subsequent Visit) CPT-4: G0439 01/13/2021 Advanced Care Planning CPT-4: VACP Fall Risk Assessment SNOMED CT: 41934154 4 CPT-4: DFRA 01/13/2021 [place] Assessment CPT-4: DSWA 12/01 Urinalysis, dip stick CPT-4: 48037 09/24/2020 Patient Health Questionnaire CPT-4: DPHQ Electrocardiogram CPT-4: 20094 05/14/2020 Tobacco Assessment/Screening CPT-4: TCA Fall Risk Assessment SNOMED CT: 56836883 4 CPT-4: DFRA 01/01/2020 Functional Assessment CPT-4: DFA 01/01/2020 [place] Assessment CPT-4: DSWA 11/04 Patient Health Questionnaire CPT-4: DPHQ [place] Assessment CPT-4: DSWA 10/03 Hypertension CPT-4: HTN 10/17/2019 Fall Risk Assessment SNOMED CT: 91052988 4 CPT-4: DFRA 09/19/2019 Functional Assessment CPT-4: DFA 09/19/2019 Urinalysis, dip stick CPT-4: 31533 06/21/2019 Tobacco Assessment/Screening CPT-4: TCA Patient Health Questionnaire CPT-4: DPHQ AHA/REBECCA Classification Assessment CPT-4: DAHA 04/25/2019 Controlled Substance Report CPT-4: CTRSU 04/03 Urinalysis, dip stick CPT-4: 99173 03/28/2019 Urinalysis, dip stick CPT-4: 26974 03/28/2019 U4P-Dgknifrnvztcorl CPT-4: 01750 Unknown B0K-Lrmsozutruqkdtx CPT-4: 93099 Unknown P4T-Eenreceligebyvt CPT-4: 90488 Unknown J5H-Wrdumsqxplvaccd CPT-4: 61516 Unknown C1C-Jwcabdcznlhgubl CPT-4: 27768 Unknown E8O-Jyqrnptbvmqkuag CPT-4: 90051 Unknown Z5G-Xbxmjetsoxxotds CPT-4: 92838 Unknown Gynecology Referral SNOMED CT: 963001717 CPT-4: R14 Unknown Vital Signs Date Vital 02/11/2021 Blood Pressure 1: 96/74 Code: 8480-6 BMI: 53.1 Code: 24605-9 Heart Rate 1: 72 bpm Height: 4'11 Code: 8302-2 Respiratory Rate: 18 bpm SpO2: 98% Temperature: 36.5 (C) / 97.7 (F) Weight: 263 lbs Code: 13994-9 Reason For Visit Reason For Visit Effective Dates Notes diabetes mellitus 02/11/2021 hyperlipidemia disease 02/11/2021 Interim health update 02/11/2021 Encounters Encounter Performer Location Location Address Codes Magdi e HOME VISIT EST PATIENT Diagnosis: Type 2 diabetes mellitus with peripheral neuropathy[ICD10: E11.42] Diagnosis: Elevated liver enzymes[ICD10: R74.8] Diagnosis: Hyperlipidemia, unspecified[ICD10 : E78.5] Anna Culver [place] [facility] [address] [id number] CPT-4: 49855 02/11/2021 Plan of Care Planned Activity Notes Codes Status Date Visit Plan: Labs ordered last vi sit reviewed with patient R63.0-783.0 Anorexia symptoms improving, but persist in the morning encouraged to keep food diary for a couple weeks, will review at next visit advised to continue to try small, more frequent food intake, discussed limiting carbonated beverages as this may make her feel full taking away appetite discussed benefits of [place] [employer]. note weight has remained stable over the past couple months-will continue to monitor E11.42-250.60 Type 2 diabetes mellitus with peripheral neuropathy ranging 94-142 -felt this was isolated, most are staying under 130 Metformin 1000mg BID - elevated liver enzymes noted with last labs, will check labs next month, may need to make adjustments to this medication received new monitor [employer] through [employer]-participant of [place] on demand - 01/29/2021 Hgb A1C 5.3 10/17/2019 [place] F[facility] 04/11-instructed on good daily foot care routine follow up with Dr. Gonzales, podiatry-diabetic shoes ophthalmology confirms visit, but doesn't remember when 01/01/2020 FRA complete denies fall 01/01/2020 Functional Assessment complete I10-401.9 Essential (primary) hypertension I11.0-402.91 Hypertensive heart disease with heart failure BP as noted today, cont hctz and lisinipril 09/24/2021 GFR 81 [...] have improved, urinating ~ 5 times per day K21.9-530.81 GERD (gastroesophageal reflux disease) continue famotidine [...] anxiety and depressed mood routine follow up [facility] [place] 08/19/2020 PHQ 9 Scoere 1, admits to feeling down at times due to not able to bring dog to new apartment and occasionally misses Functional Assessment independent with ADLs E03.9-244.9 Hypothyroidism, unspecified cont levothyroxine E78.5-272.4 Hyperlipidemia, unspecified 01/29/2021 alkaline phos 228 AST 40 ALT 157 plan d/c atorvastatin and recheck labs next month, may need to start another medication for [...] new appt for pap in June 2020-[facility]-reports pap negative-records requested Z01.89-V72.85 Encounter for screening for tobacco use 12/31/2020 Tobacco screen complete-patient denies ever smoking Z12.31-V76.12 (Z12.31-V76.12) Encounter for screening mammogram for malignant neoplasm of breast Z12.11-V76.51 (Z12.11-V76.51) Encounter for screening for malignant neoplasm of colon Preventative testing not indicated due to age *I reviewed the most recent CDC guidelines regarding Covid-19/Coronavirus with the patient/caregiver/designee 02/11/2021 Patient Education: Patient Medication Summary Completed 02/11/2021 Patient Education: Obesity Completed 02/11/2021 Patient Education: Diabetes Complete d 02/11/2021 Appointment: Chivo Bishop WPtel: [address] [place] [address] E410 01/29/2021 Appointment: Anna Culver WPtel: [phone] ETV 01/13/2021 Appointment: Anna Culver WPtel: [address] [place] [address] [place] E410 12/17/2020 Appointment: Chivo Bishop WPtel: [address] [place] [address] ETV 11/28/2020 Appointment: Anna Culver WPtel: [address] [place] [address] [place] ETV 11/24/2020 Appointment: Anna Culver WPtel: [address] [place] [address] E410 10/29/2020 Appointment: Anna Culver WPtel: [address] [place] [address] E410 09/24/2020 Appointment: Anna Culver WPtel: [address] [place] [address] ETV 08/26/2020 Appointment: Anna Culver WPtel: [address] [place] [address] ETV 08/19/2020 Appointment: Anna Culver WPtel: [address] [place] [address] ETV 07/22/2020 Appointment: Anna Culver WPtel: [address] [place] [address] [place] ETV 07/08/2020 Appointment: Gianna Birmingham: [facility] [address] [id number] [place] ECHO 07/02/2020 Appointment: Anna Culver WPtel: [address] [place] [address] E452 06/11/2020 Appointment: Anna Culver WPtel: [address] [place] [address] E452 05/14/2020 Appointment: Anna Culver WPtel: [id number] [place] [address] E452 04/17/2020 Appointment: Anna Culver WPtel: [address] [place] [address] E452 03/21/2020 Appointment: Anna Culver WPtel: [address] [place] [address] E452 02/14/2020 Appointment: Anna Culver WPtel: [address] [place] [address] E452 01/24/2020 Appointment: Anna Culver WPtel: [address] [place] [address] E452 01/01/2020 Appointment: Anna Culver WPtel: [address] [place] [address] E452 11/28/2019 Appointment: Anna Culver WPtel: [address] [place] [address] E452 10/17/2019 Appointment: Anna Culver WPtel: [address] [place] [address] E452 09/19/2019 Appointment: Sudha Hernadez WPtel: [address] [facility] [id number] E452 07/04/2019 Appointment: Sudha Hernadez WPtel: [address] [facility] [id number] E452 06/21/2019 Appointment: Charlene Oropeza WPtel: [address] [facility] [id number] E452 05/24/2019 Appointment: Mallory Delgado E452 04/27/2019 Appointment: Charlene Oropeza WPtel: [address] [facility] [id number] E452 04/25/2019 Appointment: Rasta Palafox WPtel: [facility] b [id number] E452 03/28/2019 Appointment: Rasta Palafox WPtel: [facility] b [id number] E452 02/14/2019 Appointment: Rasta Palafox WPtel: [facility] b [id number] E452 01/31/2019 Appointment: Rasta Palafox WPtel: [address] [facility] [id number] E420 12/27/2018 Referral: Pending Gynecology Referral Information Referral Processed Referral: Pending Pulmonolog y Referral Information Referral Processed Referral: Pending Psychiatry Referral Information Referral Initiated Referral: Pending Respirator y Services Referral Information Referral Initiated Referral: Pending Ophthalmology Referral Information Referral Initiated Referral: [facility] WPtel: [address] [place] [address] [employer] placed a call out to the patient to notify her that it has been recommended that she be seen by a urologist. Patient agreed to be seen, does not have a provider of choice and no transportation issues. [employer] faxed referral and clinical notes to [facility] in [place], [place] near the patient's home. Patient to [...] seen and prefers a provider in the [place] or [place] area. [employer] placed a call out to everyone listed in the area and the only location that was able to accept the patient's insurance was [place] [address] [place] [address] and spoke with Maylin. Maylin asked that the patient's referral, face sheet and visit notes be faxed to . [employer] faxed over requested documents. Patient appointment confirmation letter generated and mailed to her home address. Patient to call to schedule an appointment. Processed Referral: [facility] WPtel: [address] [place] [address] Patient notified that it has been advised that she be seen by Neurology. Patient agreed to be seen and prefers to be seen by a provider in the [place], [place] area. Patient denies any concerns with transportation, and prefers to schedule her own appointment. [employer] placed a call out to [facility] and spoke with Neeraj P: who confirmed that their office is able to accept new patients and the patient's insurance. After confirming the providers fax number, technical proposal writer faxed over the patient's referral, [...] Assessment and plan reviewed with patient . Labs ordered last visit reviewed with patient R63.0-783.0 Anorexia symptoms improving, but persist in the morning encouraged to keep food diary for a couple weeks, will review at next visit advised to continue to try small, more frequent food intake, discussed limiting carbonated beverages as this may make her feel full taking away appetite discussed benefits of [place] [employer]. note weight has remained stable over the past couple months-will continue to monitor E11.42-250.60 Type 2 diabetes mellitus with peripheral neuropathy ranging 94-142 -felt this was isolated, most are staying under 130 Metformin 1000mg BID - elevated liver enzymes noted with last labs, will check labs next month, may need to make adjustments to this medication received new monitor Pablo through [employer]-participant of [employer] - 01/29/2021 Hgb A1C 5.3 10/17/2019 [place] Fany 7/10-instructed on good daily foot care routine follow up with Dr. Gonzales, podiatry-diabetic shoes ophthalmology confirms visit, but doesn't remember when 01/01/2020 FRA complete denies fall 01/01/2020 Functional Assessment complete I10-401.9 Essential (primary) hypertension I11.0-402.91 Hypertensive heart disease with heart failure BP as noted today, cont hctz and lisinipril 09/24/2021 GFR 81 [...] have improved, urinating ~ 5 times per day K21.9-530.81 GERD (gastroesophageal reflux disease) continue famotidine [...] anxiety and depressed mood routine follow up [facility] [place] 08/19/2020 PHQ 9 Scoere 1, admits to feeling down at times due to not able to bring dog to new apartment and occasionally misses Functional Assessment independent with ADLs E03.9-244.9 Hypothyroidism, unspecified cont levothyroxine E78.5-272.4 Hyperlipidemia, unspecified 01/29/2021 alkaline phos 228; AST 40; ALT 157 plan d/c atorvastatin and recheck labs next month, may need to start another medication for [...] new appt for pap in June 2020-[facility]-reports pap negative-records requested Z01.89-V72.85 Encounter for screening for tobacco use 12/31/2020 Tobacco screen complete-patient denies ever smoking Z12.31-V76.12 (Z12.31-V76.12) Encounter for screening mammogram for malignant neoplasm of breast Z12.11-V76.51 (Z12.11-V76.51) Encounter for screening for malignant neoplasm of colon Preventative testing not indicated due to age *I reviewed the most recent CDC guidelines regarding Covid-19/Coronavirus with the patient/caregiver/designee 02/11/2021 Medical Equipment No Medical Equipment data Advance Directives No Advance Directive data
--- OUTSIDE RECORDS SUMMARY | 2023-12-07 02:16 | XMS_ITS | CCD ---
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 Unknown Has never used illegal drugs 05/31/2018 DNR Order/ Advanced Directive Unknown Full Code 05/31/2018 Allergies, Adverse Reactions, Alerts Substance Reaction Codes Entered Date Inactivated Date Status OxyContin itch, RxNorm: 747108 01/13/2021 No Inactive Da te Active *No known food allergies Unknown 09/06/2018 No I nactive Date Active Methylprednisolone hives RxNorm: 6902 09/06/2018 No Inac tive Date Active Problems Condition Codes Effective Dates Condition St atus Adjustment disorder with mix ed anxiety and depressed mood ICD-10: F43.23 ICD-9: 309.28 09/05/2018 Active Encounter for screening for tobacco use ICD-10: Z01.89 ICD-9: V72.85 01/01/2020 Active Hypertensive heart disease w ith heart failure ICD-10: I11.0 ICD-9: 402.91 04/25/2019 Active Type 2 diabetes mellitus wit h peripheral neuropathy ICD-10: E11.42 ICD-9: 250.60 11/28/2019 Active Elevated liver enzymes ICD-10: R74.8 ICD-9: [...] ICD-10: R51 ICD-9: 784.0 10/03/2018 Inactive 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 ICD-10: Z79.899 ICD-9: V58.69 04/25/2019 Inactive Type 2 diabetes mellitus wit hout complications ICD-10: E11.9 ICD-9: 250.00 10/03/2018 Inactive Wheezing ICD-10: R06.2 ICD-9: 786.07 08/08/2018 Inactive Abnormal urine finding ICD-10: R82.90 ICD-9: 791.9 09/24/2020 Resolved Abrasion of toe ICD-10: S90.416A ICD-9: 917.0 02/14/2020 Resolved Acute upper respiratory infe ction, unspecified ICD-10: J06.9 ICD-9: 465.9 09/04/2019 Resolved [place] eye ICD-10: H10.029 ICD-9: 372.03 12/29/2019 Resolved [...] unspecified ICD-10: R60.9 ICD-9: 782.3 07/11/2018 Active 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 (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) use of non-steroidal anti-inflammatories (NSAID) ICD-10: Z79.1 ICD-9: V58.64 06/13/2018 Active Medications Medication Codes Instructions Start Date Stop Date Status Fill Instructions sertraline 100 mg tablet RxNorm: 247577 2 Tablet(s) Oral every day 03/13/20 21 2020 Inactive levothyroxine 50 mcg tablet RxNorm: 733841 TAKE (1) TABLET BY MOUTH DAILY 02/04/20 21 2020 Inactive metformin 500 mg tablet RxNorm: 692656 1 Tablet(s) Oral two times a day take with 500mg to equal 1000mg 01/14/20 21 2020 Inactive gabapentin 300 mg capsule RxNorm: 609439 TAKE 1 CAPSULE BY MOUTH THREE TIMES A DAY 01/14/20 21 2020 Inactive lisinopril 2.5 mg tablet RxNorm: 627327 TAKE 1 TABLET BY MOUTH DAILY 01/06/20 21 2020 Inactive gabapentin 300 mg capsule RxNorm: 351548 TAKE 1 CAPSULE BY MOUTH THREE TIMES A DAY 01/06/20 21 2020 Inactive Singulair 10 mg tablet RxNorm: 315388 TAKE (1) TABLET BY MOUTH DAILY 01/06/20 21 2020 Inactive metformin 1,000 mg tablet RxNorm: 767642 1 Tablet(s) Oral two times a day 01/06/20 21 2020 Inactive atorvastatin 40 mg tablet RxNorm: 557119 1 Tablet(s) Oral every day 12/06/19 21 2020 Inactive omeprazole 20 mg capsule,delayed release RxNorm: 073830 1 Capsule(s) Oral every evening 11/24/19 21 2020 Inactive famotidine 10 mg tablet RxNorm: 614386 1 Tablet(s) Oral every morning 11/24/19 21 2020 Inactive Alcohol Prep Pads RxNorm: 741484 USE EACH MORNING 10/14/19 21 2020 Inactive omeprazole 20 mg capsule,delayed release RxNorm: 659009 1 Capsule(s) Oral two times a day 10/13/19 21 2021 Inactive omeprazole 20 mg capsule,delayed release RxNorm: 346342 TAKE 1 CAPSULE BY MOUTH EVERY DAY 10/08/19 21 2021 Inactive Macrobid 100 mg capsule RxNorm: 004009 1 Capsule(s) Oral every 12 hours with food 10/01/202020 Inactive omeprazole 20 mg capsule,delayed release RxNorm: 328247 1 Capsule(s) Oral two times a day 09/24/20 20 2021 Inactive metformin 1,000 mg tablet RxNorm: 701385 1 Tablet(s) Oral two times a day 08/19/20 20 2020 Inactive start on September 11, 2020 metformin 500 mg tablet RxNorm: 444746 1 Tablet(s) Oral two times a day take with 500mg to equal 1000mg 08/19/20 20 2019 Inactive gabapentin 300 mg capsule RxNorm: 025260 TAKE 1 CAPSULE BY MOUTH THREE TIMES DAILY 07/11/20 20 2020 Inactive cetirizine 10 mg tablet RxNorm: 1799972 TAKE (1) TABLET BY MOUTH DAILY 07/11/20 20 2020 Inactive metformin 500 mg tablet RxNorm: 652856 1 Tablet(s) Oral two times a day 07/08/20 20 2019 Inactive loperamide 2 mg tablet RxNorm: 154883 1 Tablet(s) Oral as needed take one tablet after each loose stool, maximum of 8 tablets in 24 hours 06/24/20 20 2021 Inactive Sudafed 12 Hour 120 mg tablet,extended release RxNorm: 5006282 TAKE 1 TABLET BY MOUTH EVERY 12 HOURS NEEDED 06/11/20 20 2019 Inactive hydrochlorothiazide 25 mg tablet RxNorm: 902970 TAKE (1) TABLET BY MOUTH EVERY DAY 06/11/20 20 2019 Inactive omeprazole 20 mg capsule,delayed release RxNorm: 977623 TAKE 1 CAPSULE BY MOUTH EVERY DAY 05/14/20 20 2020 Inactive metformin 500 mg tablet RxNorm: 791375 1 Tablet(s) Oral every day 05/12/20 20 2019 Inactive True Metrix Glucose Test Strip RxNorm: 1 Test Strips Miscellaneous two times a day as needed 04/17/20 No Stop Date Active metformin 500 mg tablet RxNorm: 593829 1 Tablet(s) Oral every day 04/17/20 20 2019 Inactive diclofenac sodium 75 mg tablet,delayed release RxNorm: 508658 1 Tablet(s) PO BID 04/14/20 20 2021 Inactive This refill negates all other refills of this medication Sudafed 12 Hour 120 mg tablet,extended release RxNorm: 1157274 TAKE 1 TABLET BY MOUTH EVERY 12 HOURS NEEDED 03/14/20 20 2019 Inactive True Metrix Glucose Test Strip RxNorm: 1 Test Strips Miscellaneous every morning 03/13/20 20 2019 Inactive 100/container True Metrix Glucose Test Strip RxNorm: 1 Test Strips Miscellaneous QAM 02/22/20 20 2019 Inactive 100/container loperamide 2 mg tablet RxNorm: 786584 1 Tablet(s) Oral as needed take one tablet after each loose stool, maximum of 8 tablets in 24 hours 02/22/20 20 2019 Inactive cetirizine 10 mg tablet RxNorm: 2636324 1 Tablet(s) PO daily 01/17/20 20 2019 Inactive loperamide 2 mg tablet RxNorm: 984786 1 Tablet(s) Oral as needed take one tablet after each loose stool, maximum of 8 tablets in 24 hours 01/17/20 20 2019 Inactive quetiapine 100 mg tablet RxNorm: 145592 1 Tablet(s) Oral every night at bedtime 01/17/20 20 2019 Inactive levothyroxine 50 mcg tablet RxNorm: 774190 1 Tablet(s) PO daily 01/17/20 20 2020 Inactive gabapentin 300 mg capsule RxNorm: 994673 1 Capsule(s) PO TID 01/17/20 20 2019 Inactive levothyroxine 50 mcg tablet RxNorm: 081745 1 Tablet(s) PO daily 01/15/20 20 2019 Inactive lisinopril 2.5 mg tablet RxNorm: 893889 1 Tablet(s) PO daily 01/15/20 20 2020 Inactive gabapentin 300 mg capsule RxNorm: 762933 1 Capsule(s) PO TID 01/15/20 20 2019 Inactive cetirizine 10 mg tablet RxNorm: 8004918 1 Tablet(s) PO daily 01/15/20 20 2019 Inactive Singulair 10 mg tablet RxNorm: 100562 1 Tablet(s) PO daily 01/15/20 20 2020 Inactive gentamicin 0.3 % eye drops RxNorm: 069471 1 Drop(s) ophthalmic (eye) four times a day 12/29/19 20 2019 Inactive gentamicin 0.3 % eye drops RxNorm: 523574 1 Drop(s) ophthalmic (eye) four times a day 12/29/19 20 2019 Inactive gentamicin 0.3 % eye drops RxNorm: 768509 1 Drop(s) ophthalmic (eye) four times a day 12/29/19 20 2019 Inactive hydrochlorothiazide 25 mg tablet RxNorm: 718728 1 Tablet(s) Oral every day 12/21/19 20 2019 Inactive Sudafed 12 Hour 120 mg tablet,extended release RxNorm: 3017116 TAKE (1) TABLET BY MOUTH EVERY 12 HOURS NEEDED 12/21/19 20 2019 Inactive loperamide 2 mg tablet RxNorm: 116567 1 Tablet(s) Oral as needed take one tablet after each loose stool, maximum of 8 tablets in 24 hours 12/11/19 20 2019 Inactive loperamide 2 mg tablet RxNorm: 608555 1 Tablet(s) Oral as needed take one tablet after each loose stool, maximum of 8 tablets in 24 hours 12/11/19 20 2019 Inactive atorvastatin 40 mg tablet RxNorm: 175935 1 Tablet(s) Oral every day 11/29/19 20 2020 Inactive quetiapine 100 mg tablet RxNorm: 496430 1 Tablet(s) Oral every night at bedtime 11/28/19 20 2019 Inactive sertraline 100 mg tablet RxNorm: 093261 1 Tablet(s) Oral 11/28/19 20 2019 Inactive omeprazole 20 mg capsule,delayed release RxNorm: 756671 1 Capsule(s) Oral every day 11/20/19 20 2019 Inactive amoxicillin 250 mg capsule RxNorm: 509320 1 Capsule(s) Oral three times a day 11/07/19 20 2019 Inactive multivitamin with iron-mineral tablet RxNorm: 1 Tablet(s) Oral every day 10/29/19 20 2021 Inactive cetirizine 10 mg tablet RxNorm: 9421085 1 Tablet(s) PO daily 10/20/19 20 2019 Inactive This refill negates all other refills of this medication. Please do not auto refill Singulair 10 mg tablet RxNorm: 162786 1 Tablet(s) PO daily 10/20/19 20 2019 Inactive This refill negates all other refills of this medication gabapentin 300 mg capsule RxNorm: 173293 1 Capsule(s) PO TID 10/20/192019 Inactive lisinopril 2.5 mg tablet RxNorm: 793133 1 Tablet(s) PO daily 10/20/192019 Inactive levothyroxine 50 mcg tablet RxNorm: 820670 1 Tablet(s) PO daily 10/20/192019 Inactive This refill negates all other refills of this medication fenugreek seed extract 500 mg capsule RxNorm: 1 Capsule(s) Oral three times a day 10/17/192021 Inactive hydrochlorothiazide 25 mg tablet RxNorm: 700222 1 Tablet(s) Oral every day 10/17/19 20 2019 Inactive Alcohol Prep Pads RxNorm: 353145 1 Patch TOP QAM 10/16/19 20 2020 Inactive loperamide 2 mg tablet RxNorm: 258514 1 Tablet(s) Oral as needed take one [...] 09/19/202019 Inactive hydrochlorothiazide 25 mg tablet RxNorm: 521793 1 Tablet(s) Oral every day 09/19/202019 Inactive Sudafed 12 Hour 120 mg tablet,extended release RxNorm: 3778938 1 Tablet(s) Oral every 12 hours as needed 09/11/20 19 2018 Inactive omeprazole 20 mg capsule,delayed release RxNorm: 884495 1 Capsule(s) Oral every day 09/07/20 19 2019 Inactive Sudafed 12 Hour 120 mg tablet,extended release RxNorm: 0211172 1 Tablet(s) Oral every 12 hours as needed 09/04/20 19 2018 Inactive pantoprazole 40 mg tablet,delayed release RxNorm: 177151 1 Tablet(s) Oral every day 08/24/20 19 2018 Inactive discontinue any other H2Blkr. and PPI albuterol sulfate 2.5 mg/3 mL (0.083 %) solution for nebulization RxNorm: 830696 1 Vial Inhalation every four hours as needed as needed for dyspnea 08/17/20 19 2019 Inactive 60/box. This refill negates all other refills of this medication. Please do not fill early. Please do not auto refill. Symbicort 160 mcg-4.5 mcg/actuation HFA aerosol inhaler RxNorm: 4386206 2 Puff(s) INH BID 08/17/20 No Stop Date Active Alcohol Prep Pads RxNorm: 656028 1 Patch TOP QAM 08/17/20 19 2019 Inactive Ventolin HFA 90 mcg/actuation aerosol inhaler RxNorm: 859701 2 Puff(s) INH QID 08/09/20 19 2019 Inactive Please do not fill early. Please do not auto refill. This refill negates all other refills of this medication True Metrix Glucose Test Strip RxNorm: 1 Test Strips Miscellaneous QAM 08/09/20 19 2019 Inactive 100/container atorvastatin 40 mg tablet RxNorm: 090862 1 Tablet(s) Oral every day 07/04/20 19 2019 Inactive levmetamfetamine 50 mg nasal inhaler RxNorm: 1 Unit(s) NASAL Q3-4H Do not use more than every 3 hours or 8 times/24hours 06/26/20 19 2021 Inactive Please do not auto refill. This refill negates all other refills of this medication buspirone 7.5 mg tablet RxNorm: 509604 1 Tablet(s) PO BID 06/26/20 19 2020 Inactive This refill negates all other refills of this medication hydrochlorothiazide 12.5 mg tablet RxNorm: 492841 1 Tablet(s) PO QAM 06/26/20 19 2019 Inactive Ventolin HFA 90 mcg/actuation aerosol inhaler RxNorm: 316463 2 Puff(s) INH QID 06/26/20 19 2018 Inactive Please do not fill early. Please do not auto refill. This refill negates all other refills of this medication Singulair 10 mg tablet RxNorm: 502148 1 Tablet(s) PO daily 06/26/20 19 2019 Inactive This refill negates all other refills of this medication cetirizine 10 mg tablet RxNorm: 0398279 1 Tablet(s) PO daily 06/26/20 19 2019 Inactive This refill negates all other refills of this medication. Please do not auto refill levothyroxine 50 mcg tablet RxNorm: 325073 1 Tablet(s) PO daily 06/26/20 19 2019 Inactive This refill negates all other refills of this medication diclofenac sodium 75 mg tablet,delayed release RxNorm: 251002 1 Tablet(s) PO BID 06/26/20 19 2019 Inactive This refill negates all other refills of this medication ranitidine 150 mg tablet RxNorm: 524981 1 Tablet(s) PO BID 06/26/20 19 2018 Inactive This refill negates all other refills of this medication Calcium 600-D3 Plus (mag-zinc) 600 mg calcium-800 unit-50 mg tablet RxNorm: 1 Tablet(s) PO daily take an additonal tablet for itching. 06/26/20 19 2018 Inactive This refill negates all other refills of this medication albuterol sulfate 2.5 mg/3 mL (0.083 %) solution for nebulization RxNorm: 099808 1 Vial INH QID 06/26/20 19 2018 Inactive 60/box. This refill negates all other refills of this medication. Please do not fill early. Please do not auto refill. lisinopril 2.5 mg tablet RxNorm: 525248 1 Tablet(s) PO daily 06/21/20 19 2019 Inactive gabapentin 300 mg capsule RxNorm: 239265 1 Capsule(s) PO TID 06/21/20 19 2019 Inactive atorvastatin 20 mg tablet RxNorm: 366425 1 Tablet(s) PO QHS 06/07/20 19 2018 Inactive This refill negates all other refills of this medication TRUEplus Lancets 30 gauge RxNorm: 1 Lancets Miscellaneous QAM 05/29/20 19 2018 Inactive 100/box gabapentin 300 mg capsule RxNorm: 934030 1 Capsule(s) PO TID 05/03/20 19 2018 Inactive Flintstones Complete (iron) 18 mg iron chewable tablet RxNorm: 1 Tablet(s) PO daily 04/04/202021 Inactive This refill negates all other refills of this medication gabapentin 300 mg capsule RxNorm: 525235 1 Capsule(s) PO TID as needed 02/01/20 19 2018 Inactive True Metrix Glucose Test Strip RxNorm: 1 Test Strips Miscellaneous QA 02/01/20 19 2018 Inactive 100/container Alcohol Prep Pads RxNorm: 608686 1 Patch TOP QA 02/01/20 19 2018 Inactive TRUEplus Lancets 30 gauge RxNorm: 1 Lancets Miscellaneous QAM 02/01/20 19 2018 Inactive 100/box lisinopril 2.5 mg tablet RxNorm: 291781 1 Tablet(s) PO daily 12/28/19 19 2018 Inactive ranitidine 150 mg tablet RxNorm: 735262 1 Tablet(s) PO BID 10/21/19 19 2018 Inactive This refill negates all other refills of this medication albuterol sulfate 2.5 mg/3 mL (0.083 %) solution for nebulization RxNorm: 241174 1 Vial INH QID 10/21/192018 Inactive 60/box. [...] this medication gabapentin 300 mg capsule RxNorm: 712663 1 Capsule(s) PO TID as needed 10/21/19 19 2018 Inactive atorvastatin 20 mg tablet RxNorm: 312802 1 Tablet(s) PO QHS 10/21/192018 Inactive This refill negates all other refills of this medication trazodone 50 mg tablet RxNorm: 860614 1 Tablet(s) PO QHS 10/21/192018 Inactive This refill negates all other refills of this medication Ventolin HFA 90 mcg/actuation aerosol inhaler RxNorm: 465526 2 Puff(s) INH QID 10/21/192018 Inactive Please do not fill early. Please do not auto refill. This refill negates all other refills of this medication Calcium 600-D3 Plus 600 mg calcium-800 unit-50 mg tablet RxNorm: 1 Tablet(s) PO daily take an additonal tablet for itching. 10/21/192018 Inactive This refill negates all other refills of this medication Singulair 10 mg tablet RxNorm: 386080 1 Tablet(s) PO daily 10/21/192018 Inactive This refill negates all other refills of this medication buspirone 7.5 mg tablet RxNorm: 983879 1 Tablet(s) PO BID 10/21/192018 Inactive This refill negates all other refills of this medication diclofenac sodium 75 mg tablet,delayed release RxNorm: 120506 1 Tablet(s) PO BID 10/21/19 19 2018 Inactive This refill negates all other refills of this medication hydrochlorothiazide 12.5 mg tablet RxNorm: 614074 1 Tablet(s) PO QAM 10/21/19 19 2018 Inactive metoprolol succinate ER 50 mg tablet,extended release 24 hr RxNorm: 153968 1 Tablet(s) PO daily 10/21/19 19 2018 Inactive This refill negates all other refills of this medication levothyroxine 50 mcg tablet RxNorm: 513139 1 Tablet(s) PO daily 10/21/19 19 2018 Inactive This refill negates all other refills of this medication cetirizine 10 mg tablet RxNorm: 5950108 1 Tablet(s) PO daily 10/21/192018 Inactive This refill negates all other refills of this medication. Please do not auto refill Flintstones Complete (iron) 18 mg iron chewable tablet RxNorm: 1 Tablet(s) PO daily 10/21/192018 Inactive This refill negates all other refills of this medication buspirone 7.5 mg tablet RxNorm: 771307 1 Tablet(s) PO BID 10/12/19 19 2018 Inactive cetirizine 10 mg tablet RxNorm: 3531751 1 Tablet(s) PO daily 09/28/20 18 2018 Inactive Guaiasorb DM 10 mg-100 mg/5 mL oral liquid RxNorm: 392789 10 Milliliter(s) PO As needed every 4 hr 09/24/20 18 2018 Inactive Vicks Vaporub 4.7 %-1.2 %-2.6 % topical ointment RxNorm: 6871660 1 Application TOP TID 09/24/20 18 2018 Inactive levmetamfetamine 50 mg nasal inhaler RxNorm: 1 Unit(s) NASAL Q3-4H 09/24/20 18 2017 Inactive sertraline 50 mg tablet RxNorm: 572363 1 Tablet(s) PO daily 09/09/20 18 2018 Inactive Please note dose trazodone 50 mg tablet RxNorm: 619493 1 Tablet(s) PO QHS 09/06/20 18 2018 Inactive sertraline 50 mg tablet RxNorm: 350023 1 Tablet(s) PO daily 09/06/20 18 2017 Inactive amoxicillin 500 mg tablet RxNorm: 650697 1 Tablet(s) PO Q12H 08/31/20 18 2017 Inactive albuterol sulfate 2.5 mg/3 mL (0.083 %) solution for nebulization RxNorm: 528416 1 Vial INH QID 08/10/20 18 2018 Inactive 60/box. Please do not fill early. Please do not auto refill. Prozac 10 mg capsule RxNorm: 787999 1 Capsule(s) PO daily 08/09/20 18 2017 Inactive buspirone 7.5 mg tablet RxNorm: 224104 1 Tablet(s) PO BID 08/09/20 18 2018 Inactive gabapentin 300 mg capsule RxNorm: 853700 1 Capsule(s) PO TID as needed 08/01/20 18 2018 Inactive hydrochlorothiazide 12.5 mg tablet RxNorm: 862497 1 Tablet(s) PO QAM 08/01/20 18 2018 Inactive ranitidine 150 mg tablet RxNorm: 652733 1 Tablet(s) PO BID 08/01/20 18 2018 Inactive Macrobid 100 mg capsule RxNorm: 603350 1 Capsule(s) PO Q12H 06/21/20 18 2017 Inactive Singulair 10 mg tablet RxNorm: 491404 1 Tablet(s) PO daily 06/14/20 18 2018 Inactive Ventolin HFA 90 mcg/actuation aerosol inhaler RxNorm: 7962258 2 Puff(s) INH QID 06/14/20 18 2018 Inactive Singulair 10 mg tablet RxNorm: 595846 1 Tablet(s) PO daily 06/14/20 18 2017 Inactive buspirone 7.5 mg tablet RxNorm: 315076 1 Tablet(s) PO BID 06/14/20 18 2017 Inactive Prozac 10 mg capsule RxNorm: 477721 1 Capsule(s) PO daily 06/14/20 18 2017 Inactive Neilmed Pediatric Sinus Rinse Refill packet RxNorm: 1 Unit Dose NASAL PRN 05/31/20 18 2021 Inactive diclofenac sodium 75 mg tablet,delayed release RxNorm: 311846 1 Tablet(s) PO BID 05/31/20 18 2017 Inactive lisinopril 2.5 mg tablet RxNorm: 656531 1 Tablet(s) PO daily 05/31/20 18 2017 Inactive metoprolol succinate ER 50 mg tablet,extended release 24 hr RxNorm: 733281 1 Tablet(s) PO daily 05/31/20 18 2017 Inactive levothyroxine 50 mcg tablet RxNorm: 700751 1 Tablet(s) PO daily 05/31/20 18 2017 Inactive TRUEplus Lancets 30 gauge RxNorm: 1 Lancets Miscellaneous QAM 05/31/20 18 2017 Inactive 100/box Ventolin HFA 90 mcg/actuation aerosol inhaler RxNorm: 245592 2 Puff(s) INH QID 05/31/20 18 2017 Inactive Aleve 220 mg capsule RxNorm: 0431719 1 Capsule(s) PO BID 05/31/20 18 2018 Inactive ranitidine 150 mg tablet RxNorm: 052662 1 Tablet(s) PO BID 05/31/20 18 2017 Inactive gabapentin 300 mg capsule RxNorm: 220997 1 Capsule(s) PO TID as needed 05/31/20 18 2017 Inactive atorvastatin 20 mg tablet RxNorm: 978569 1 Tablet(s) PO QHS 05/31/20 18 2017 Inactive True Metrix Glucose Test Strip RxNorm: 1 Test Strips Miscellaneous QAM 05/31/20 18 2017 Inactive 50/container Calcium 600-D3 Plus 600 mg calcium-800 unit-50 mg tablet RxNorm: 1 Tablet(s) PO daily take an additonal tablet for itching. 05/31/20 18 2017 Inactive hydrochlorothiazide 12.5 mg tablet RxNorm: 668545 1 Tablet(s) PO QAM 05/31/20 18 2017 Inactive Flintstones Complete (iron) 18 mg iron chewable tablet RxNorm: 1 Tablet(s) PO daily 05/31/20 18 2017 Inactive d-mannose oral powder RxNorm: PO 18 2021 Inactive True Metrix Glucose Meter RxNorm: miscellaneous 08/17/20 19 2018 Inactive sertraline 50 mg tablet RxNorm: 687672 1 Tablet(s) PO daily 11/28/19 20 2019 Inactive loperamide 2 mg tablet RxNorm: 451370 oral 09/29/20 19 2018 Inactive Symbicort 160 mcg-4.5 mcg/actuation HFA aerosol inhaler RxNorm: 9134122 2 Puff(s) INH BID 08/17/20 19 2018 Inactive Medication Administered No Medication Administered data Procedures Procedure Codes Date Tobacco Assessment/Screening CPT-4: TCA 08/2021 Patient Health Questionnaire CPT-4: DPHQ 08/2021 Patient Health Questionnaire Little interest or pleasure in doing things?/0 = Not at all, Feeling down, depressed or hopeless?/2 = More than half the days, Trouble falling or staying asleep, or sleeping too much?/0 = Not at all, Feeling tired or having little energy?/0 = Not at all, Poor appetite or overeating?/2 = More than half the days, Feeling bad about yourself or that you're [...] for depression- NO PLAN NEEDED CPT-4: DPHQUnknown 03/13/2021 Tobacco Assessment/Screening Tobacco Use/Never used tobacco CPT-4: TCAUnknown 03/13/2021 Mini Mental State Exam CPT-4: DMMA 1 Annual Wellness Visit (Subsequent Visit) CPT-4: G0439 01/13/2021 Advanced Care Planning CPT-4: VACP 1 Fall Risk Assessment SNOMED CT: 70161392 4 CPT-4: DFRA 01/13/2021 [place] Assessment CPT-4: DSWA 12/01 Urinalysis, dip stick CPT-4: 13134 09/24/2020 Patient Health Questionnaire CPT-4: DPHQ Electrocardiogram CPT-4: 58239 05/14/2020 Tobacco Assessment/Screening CPT-4: TCA Fall Risk Assessment SNOMED CT: 47765295 4 CPT-4: DFRA 01/01/2020 Functional Assessment CPT-4: DFA 01/01/2020 [place] Assessment CPT-4: DSWA 11/04 Patient Health Questionnaire CPT-4: DPHQ [place] Assessment CPT-4: DSWA 10/03 Hypertension CPT-4: HTN 10/17/2019 Fall Risk Assessment SNOMED CT: 65834212 4 CPT-4: DFRA 09/19/2019 Functional Assessment CPT-4: DFA 09/19/2019 Urinalysis, dip stick CPT-4: 46737 06/21/2019 Tobacco Assessment/Screening CPT-4: TCA Patient Health Questionnaire CPT-4: DPHQ AHA/REBECCA Classification Assessment CPT-4: DAHA 04/25/2019 Controlled Substance Report CPT-4: CTRSU 04/03 Urinalysis, dip stick CPT-4: 57714 03/28/2019 Urinalysis, dip stick CPT-4: 13861 03/28/2019 C7R-Bnqkijqaexwqoou CPT-4: 12243 Unknown G7U-Cmcgrpzorvihwrv CPT-4: 23359 Unknown U1W-Kdedopjqenvtfql CPT-4: 02967 Unknown N1G-Plzcafhihfdjqql CPT-4: 86650 Unknown E9E-Zjavhzfxbfhrkyh CPT-4: 02271 Unknown D1F-Ezvtyyehxvcnmut CPT-4: 66920 Unknown B3V-Bmmdwernyypkvny CPT-4: 85468 Unknown Gynecology Referral SNOMED CT: 064059952 CPT-4: R14 Unknown Reason For Visit Reason For Visit Effective Dates Notes diabetes mellitus 03/13/2021 hyperlipidemia disease 03/13/2021 Interim health update 03/13/2021 Encounters Encounter Performer Location Location Address Codes [place] ([id number]) (EST PT) DETAILED TELEHEALTH VISIT Diagnosis: Type 2 diabetes mellitus with peripheral neuropathy[ICD10: E11.42] Diagnosis: Hypertensive heart disease with heart failure[ICD10: I11.0] Diagnosis: Adjustment disorder with mixed anxiety and depressed mood[ICD10: F43.23] Diagnosis: Encounter for screening for tobacco use[ICD10: Z01.89] Anna Culver [place] Office [address] [place] [address] CPT-4: 21431 03/13/2021 Plan of Care Planned Activity Notes Codes Status Date Visit Plan: Video and audio call using [employer] R63.0-783.0 Anorexia symptoms improving, but persist in the morning encouraged to keep food diary for a couple weeks, will review at next visit advised to continue to try small, more frequent food intake, discussed limiting carbonated beverages as this may make her feel full taking away appetite discussed benefits of [place] Instant Breakfast. note weight has remained stable over the past couple months-will continue to monitor E11.42-250.60 Type 2 diabetes mellitus with peripheral neuropathy ranging 63-124 - prefers to stay less than 100 in the morning and less than 119 in the evening has been eating more fruits lately-discussed impact of fruit and simple carbs on blood sugars encouraged more plant based diet, Metformin 1000mg BID - elevated liver enzymes noted with last labs, will check labs next month, may need to make adjustments to this medication received new monitor Pablo through [employer]-participant of [employer] - 01/29/2021 Hgb A1C 5.3 10/17/2019 [place] [facility] 7/10-instructed on good daily foot care routine follow up with Dr. Gonzales, podiatry-diabetic shoes ophthalmology confirms visit, but doesn't remember when 01/01/2020 FRA complete denies fall 01/01/2020 Functional Assessment complete plan f/u in a couple weeks to review blood sugars I10-401.9 Essential (primary) hypertension I11.0-402.91 Hypertensive heart disease with heart failure BP not assessed this telehealth visit cont hctz and lisinipril 09/24/2021 GFR 81 [...] urinating ~ 5 times per day-next appt iJuly 2020 K21.9-530.81 GERD (gastroesophageal reflux disease) continue famotidine [...] anxiety and depressed mood routine follow up [facility] 03/13/2021 PHQ 9 Score 4 Sertraline increased to 200mg daily Functional Assessment independent with ADLs E03.9-244.9 Hypothyroidism, [...] new appt for pap in June 2020-[facility]-reports pap negative-records requested Z01.89-V72.85 Encounter for screening for tobacco use 03/13/2021 Tobacco screen complete-patient denies ever smoking Z12.31-V76.12 (Z12.31-V76.12) Encounter for screening mammogram for malignant neoplasm of breast Z12.11-V76.51 (Z12.11-V76.51) Encounter for screening for malignant neoplasm of colon Preventative testing not indicated due to age *I reviewed the most recent CDC guidelines regarding Covid-19/Coronavirus with the patient/caregiver/designee 03/13/2021 Patient Education: Patient Medication Summary Completed 03/13/2021 Patient Education: Diabetes Complete d 03/13/2021 Appointment: Anna Culver WPtel: [address] [place] [address] E410 02/11/2021 Appointment: Chivo Bishop WPtel: [address] [place] [address] E410 01/29/2021 Appointment: Anna Culver WPtel: [address] [place] [address] [place] ETV 01/13/2021 Appointment: Anna Culver WPtel: [address] [place] [address] [place] E410 12/17/2020 Appointment: Chivo Bishop WPtel: [address] [place] [address] [place] E[place] 11/28/2020 Appointment: Anna Culver WPtel: [address] [place] [address] [place] E[place] 11/24/2020 Appointment: Anna Culver WPtel: [phone] [place] [address] [place] E410 10/29/2020 Appointment: Anna Culver WPtel: [phone] [place] [address] E410 09/24/2020 Appointment: Anna Culver WPtel: [address] [place] [address] [place] E[place] 08/26/2020 Appointment: Anna Culver WPtel: [address] [place] [address] ETV 08/19/2020 Appointment: Anna Culver WPtel: [address] [place] [address] ETV 07/22/2020 Appointment: Anna Culver WPtel: [address] [place] [address] ETV 07/08/2020 Appointment: Gianna Birmingham: [address] [facility] [address] [id number] [place] ECHO 07/02/2020 Appointment: Anna Culver WPtel: [address] [place] [address] E452 06/11/2020 Appointment: Anna Culver WPtel: [address] [place] [address] [place] E452 05/14/2020 Appointment: Anna Culver WPtel: [address] [place] [address] [place] E452 04/17/2020 Appointment: Anna Culver WPtel: [address] [place] [address] [place] E452 03/21/2020 Appointment: nAna Culver WPtel: [address] [place] [address] E452 02/14/2020 Appointment: Anna Culver WPtel: [address] [place] [address] E452 01/24/2020 Appointment: Anna Culver WPtel: [phone] E452 01/01/2020 Appointment: Anna Culver WPtel: [phone] E452 11/28/2019 Appointment: Anna Culver WPtel: [address] [place] [address] E452 10/17/2019 Appointment: Anna Culver WPtel: [phone] E452 09/19/2019 Appointment: Suhda Hernadez WPtel: [address] [facility] [place] [address] [id number] E452 07/04/2019 Appointment: Sudha Hernadez WPtel: [address] [facility] [place] [address] [id number] E452 06/21/2019 Appointment: Charlene Oropeza WPtel: [address] [facility] [place] [address] [id number] E452 05/24/2019 Appointment: Mallory Delgado [facility] 04/27/2019 Appointment: Charlene Oropeza WPtel: [address] [facility] [place] [address] [id number] E452 04/25/2019 Appointment: Rasta Palafox WPtel: [address] [facility] [place] [address] [id number] E452 03/28/2019 Appointment: Rasta Palafox WPtel: [address] [facility] [place] [address] [id number] E452 02/14/2019 Appointment: Rasta Palafox WPtel: [address] [facility] [place] [address] [id number] E452 01/31/2019 Appointment: Rasta Palafox WPtel: [address] [facility] [address] [id number] E420 12/27/2018 Referral: Pending Gynecology Referral Information Referral Processed Referral: Pending Pulmonolog y Referral Information Referral Processed Referral: Pending Psychiatry Referral Information Referral Initiated Referral: Pending Respirator y Services Referral Information Referral Initiated Referral: Pending Ophthalmology Referral Information Referral Initiated Referral: [facility] WPtel: [address] [facility] [address] [facility]43[facility] Upholstery Technician placed a call out to the patient to notify her that it has been recommended that she be seen by a urologist. Patient agreed to be seen, does not have a provider of choice and no transportation issues. Upholstery Technician faxed referral and clinical notes to [facility] in [place], [place] near the patient's home. Patient to [...] seen and prefers a provider in the [place] or [place] area. Upholstery Technician placed a call out to everyone listed in the area and the only location that was able to accept the patient's insurance was [address] [address] and spoke with Maylin. Maylin asked that the patient's referral, face sheet and visit notes be faxed to . Upholstery Technician faxed over requested documents. Patient appointment confirmation letter generated and mailed to her home address. Patient to call to schedule an appointment. Processed Referral: [facility] WPtel: [address] [facility] [address] [id number] Patient notified that it has been advised that she be seen by Neurology. Patient agreed to be seen and prefers to be seen by a provider in the [place], [place] area. Patient denies any concerns with transportation, and prefers to schedule her own appointment. Upholstery Technician placed a call out to [facility] [...] patient . Video and audio call using [employer] R43.0-933.0 Anorexia symptoms improving, but persist in the morning encouraged to keep food diary for a couple weeks, will review at next visit advised to continue to try small, more frequent food intake, discussed limiting carbonated beverages as this may make her feel full taking away appetite discussed benefits of [place] [employer]. note weight has remained stable over the past couple months-will continue to monitor E11.42-250.60 Type 2 diabetes mellitus with peripheral neuropathy ranging 63-124 - prefers to stay less than 100 in the morning and less than 119 in the evening has been eating more fruits lately-discussed impact of fruit and simple carbs on blood sugars encouraged more plant based diet, Metformin 1000mg BID - elevated liver enzymes noted with last labs, will check labs next month, may need to make adjustments to this medication received new monitor Pablo through [employer]-participant of [employer] - 01/29/2021 Hgb A1C 5.3 10/17/2019 [place] [facility] 7/10-instructed on good daily foot care routine follow up with Dr. Gonzales, podiatry-diabetic shoes ophthalmology confirms visit, but doesn't remember when 01/01/2020 FRA complete denies fall 01/01/2020 Functional Assessment complete plan f/u in a couple weeks to review blood sugars I10-401.9 Essential (primary) hypertension I11.0-402.91 Hypertensive heart disease with heart failure BP not assessed this telehealth visit cont hctz and lisinipril 09/24/2021 GFR 81 [...] urinating ~ 5 times per day-next appt iJuly 2020 K21.9-530.81 GERD (gastroesophageal reflux disease) continue famotidine [...] anxiety and depressed mood routine follow up [facility] 03/13/2021 PHQ 9 Score 4 Sertraline increased to 200mg daily Functional Assessment independent with ADLs E03.9-244.9 Hypothyroidism, [...] new appt for pap in June 2020-[facility]-reports pap negative-records requested Z01.89-V72.85 Encounter for screening for tobacco use 03/13/2021 Tobacco screen complete-patient denies ever smoking Z12.31-V76.12 (Z12.31-V76.12) Encounter for screening mammogram for malignant neoplasm of breast Z12.11-V76.51 (Z12.11-V76.51) Encounter for screening for malignant neoplasm of colon Preventative testing not indicated due to age *I reviewed the most recent CDC guidelines regarding Covid-19/Coronavirus with the patient/caregiver/designee 03/13/2021 Medical Equipment No Medical Equipment data Advance Directives No Advance Directive data
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
--- OUTSIDE RECORDS SUMMARY | 2023-12-07 02:16 | XMS_ITS | CCD ---
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 Lokie Engineer Name Role Phone Palomo KING, Anna Primary Care Provider Unav ailable Unavailable Chronic Care Management Unavaila ble Summary Purpose DataExchange Insurance Providers Payer name Policy type / Coverage type Covered alliance party ID Effective Begin Date Effective End Date SUKI [employer]TS MARIA ESTHER [id number] Unknown Unknown Family history Mother Diagnosis Age [...] Unknown Disability 05/31/[address]: 619979888 Has never s moked or chewed tobacco 05/31/[address]: 745166057 Never drinks alco hol 05/31/2018 Has the patient ever used illegal drugs? 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 [...] unspecified ICD-10: J06.9 ICD-9: 465.9 09/04/2019 Resolved [place] [facility] ICD-10: H10.029 ICD-9: 372.03 12/29/2019 Resolved [...] unspecified ICD-10: R60.9 ICD-9: 782.3 07/11/2018 Active longterm (current) use of non-steroidal anti-inflammatories (NSAID) ICD-10: Z79.1 ICD-9: V58.64 06/13/2018 Active Medications Medication Codes Instructions Start Date Stop Date Status Fill Instructions omeprazole 20 mg capsule,delayed release RxNorm: 496229 1 Capsule(s) Oral every evening 04/03/20 21 2020 Inactive sertraline 100 mg tablet RxNorm: 250649 2 Tablet(s) Oral every day 03/13/20 21 2020 Inactive levothyroxine 50 mcg tablet RxNorm: 695396 TAKE (1) TABLET BY MOUTH DAILY 02/04/20 21 2020 Inactive metformin 500 mg tablet RxNorm: 828100 1 Tablet(s) Oral two times a day take with 500mg to equal 1000mg 01/14/20 21 2020 Inactive gabapentin 300 mg capsule RxNorm: 201230 TAKE 1 CAPSULE BY MOUTH THREE TIMES A DAY 01/14/20 21 2020 Inactive lisinopril 2.5 mg tablet RxNorm: 409623 TAKE 1 TABLET BY MOUTH DAILY 01/06/20 21 2020 Inactive gabapentin 300 mg capsule RxNorm: 461725 TAKE 1 CAPSULE BY MOUTH THREE TIMES A DAY 01/06/20 21 2020 Inactive Singulair 10 mg tablet RxNorm: 416811 TAKE (1) TABLET BY MOUTH DAILY 01/06/20 21 2020 Inactive metformin 1,000 mg tablet RxNorm: 024458 1 Tablet(s) Oral two times a day 01/06/20 21 2020 Inactive atorvastatin 40 mg tablet RxNorm: 102264 1 Tablet(s) Oral every day 12/06/19 21 2020 Inactive omeprazole 20 mg capsule,delayed release RxNorm: 210239 1 Capsule(s) Oral every evening 11/24/19 21 2020 Inactive famotidine 10 mg tablet RxNorm: 927879 1 Tablet(s) Oral every morning 11/24/19 21 2020 Inactive Alcohol Prep Pads RxNorm: 924462 USE EACH MORNING 10/14/19 21 2020 Inactive omeprazole 20 mg capsule,delayed release RxNorm: 616252 1 Capsule(s) Oral two times a day 10/13/19 21 2021 Inactive omeprazole 20 mg capsule,delayed release RxNorm: 639762 TAKE 1 CAPSULE BY MOUTH EVERY DAY 10/08/19 21 2021 Inactive Macrobid 100 mg capsule RxNorm: 402762 1 Capsule(s) Oral every 12 hours with food 10/01/20 20 2020 Inactive omeprazole 20 mg capsule,delayed release RxNorm: 108271 1 Capsule(s) Oral two times a day 09/24/20 20 2021 Inactive metformin 1,000 mg tablet RxNorm: 770500 1 Tablet(s) Oral two times a day 08/19/20 20 2020 Inactive start on September 11, 2020 metformin 500 mg tablet RxNorm: 108425 1 Tablet(s) Oral two times a day take with 500mg to equal 1000mg 08/19/20 20 2019 Inactive gabapentin 300 mg capsule RxNorm: 187098 TAKE 1 CAPSULE BY MOUTH THREE TIMES DAILY 07/11/20 20 2020 Inactive cetirizine 10 mg tablet RxNorm: 0471884 TAKE (1) TABLET BY MOUTH DAILY 07/11/20 20 2020 Inactive metformin 500 mg tablet RxNorm: 177067 1 Tablet(s) Oral two times a day 07/08/20 20 2019 Inactive loperamide 2 mg tablet RxNorm: 023677 1 Tablet(s) Oral as needed take one tablet after each loose stool, maximum of 8 tablets in 24 hours 06/24/20 20 2021 Inactive Sudafed 12 Hour 120 mg tablet,extended release RxNorm: 2877960 TAKE 1 TABLET BY MOUTH EVERY 12 HOURS NEEDED 06/11/20 20 2019 Inactive hydrochlorothiazide 25 mg tablet RxNorm: 228218 TAKE (1) TABLET BY MOUTH EVERY DAY 06/11/20 20 2019 Inactive omeprazole 20 mg capsule,delayed release RxNorm: 173182 TAKE 1 CAPSULE BY MOUTH EVERY DAY 05/14/202020 Inactive metformin 500 mg tablet RxNorm: 143678 1 Tablet(s) Oral every day 05/12/20 20 2019 Inactive True Metrix Glucose Test Strip RxNorm: 1 Test Strips Miscellaneous two times a day as needed 04/17/20 No Stop Date Active metformin 500 mg tablet RxNorm: 794129 1 Tablet(s) Oral every day 04/17/20 20 2019 Inactive diclofenac sodium 75 mg tablet,delayed release RxNorm: 052809 1 Tablet(s) PO BID 04/14/20 20 2021 Inactive This refill negates all other refills of this medication Sudafed 12 Hour 120 mg tablet,extended release RxNorm: 2874402 TAKE 1 TABLET BY MOUTH EVERY 12 HOURS NEEDED 03/14/20 20 2019 Inactive True Metrix Glucose Test Strip RxNorm: 1 Test Strips Miscellaneous every morning 03/13/20 20 2019 Inactive 100/container True Metrix Glucose Test Strip RxNorm: 1 Test Strips Miscellaneous QAM 02/22/20 20 2019 Inactive 100/container loperamide 2 mg tablet RxNorm: 548766 1 Tablet(s) Oral as needed take one tablet after each loose stool, maximum of 8 tablets in 24 hours 02/22/20 20 2019 Inactive cetirizine 10 mg tablet RxNorm: 0945489 1 Tablet(s) PO daily 01/17/20 20 2019 Inactive loperamide 2 mg tablet RxNorm: 701809 1 Tablet(s) Oral as needed take one tablet after each loose stool, maximum of 8 tablets in 24 hours 01/17/20 20 2019 Inactive quetiapine 100 mg tablet RxNorm: 274593 1 Tablet(s) Oral every night at bedtime 01/17/20 20 2019 Inactive levothyroxine 50 mcg tablet RxNorm: 278863 1 Tablet(s) PO daily 01/17/20 20 2020 Inactive gabapentin 300 mg capsule RxNorm: 185962 1 Capsule(s) PO TID 01/17/20 20 2019 Inactive levothyroxine 50 mcg tablet RxNorm: 028223 1 Tablet(s) PO daily 01/15/20 20 2019 Inactive lisinopril 2.5 mg tablet RxNorm: 717869 1 Tablet(s) PO daily 01/15/20 20 2020 Inactive gabapentin 300 mg capsule RxNorm: 775388 1 Capsule(s) PO TID 01/15/20 20 2019 Inactive cetirizine 10 mg tablet RxNorm: 1340586 1 Tablet(s) PO daily 01/15/20 20 2019 Inactive Singulair 10 mg tablet RxNorm: 224646 1 Tablet(s) PO daily 01/15/20 2020 Inactive gentamicin 0.3 % eye drops RxNorm: 541732 1 Drop(s) ophthalmic (eye) four times a day 12/29/19 20 2019 Inactive gentamicin 0.3 % eye drops RxNorm: 208865 1 Drop(s) ophthalmic (eye) four times a day 12/29/19 20 2019 Inactive gentamicin 0.3 % eye drops RxNorm: 208088 1 Drop(s) ophthalmic (eye) four times a day 12/29/19 20 2019 Inactive hydrochlorothiazide 25 mg tablet RxNorm: 433283 1 Tablet(s) Oral every day 12/21/19 20 2019 Inactive Sudafed 12 Hour 120 mg tablet,extended release RxNorm: 0293520 TAKE (1) TABLET BY MOUTH EVERY 12 HOURS NEEDED 12/21/19 20 2019 Inactive loperamide 2 mg tablet RxNorm: 470679 1 Tablet(s) Oral as needed take one tablet after each loose stool, maximum of 8 tablets in 24 hours 12/11/19 20 2019 Inactive loperamide 2 mg tablet RxNorm: 878804 1 Tablet(s) Oral as needed take one tablet after each loose stool, maximum of 8 tablets in 24 hours 12/11/19 20 2019 Inactive atorvastatin 40 mg tablet RxNorm: 752746 1 Tablet(s) Oral every day 11/29/19 20 2020 Inactive quetiapine 100 mg tablet RxNorm: 635270 1 Tablet(s) Oral every night at bedtime 11/28/19 20 2019 Inactive sertraline 100 mg tablet RxNorm: 885670 1 Tablet(s) Oral 11/28/19 20 2019 Inactive omeprazole 20 mg capsule,delayed release RxNorm: 252100 1 Capsule(s) Oral every day 11/20/19 20 2019 Inactive amoxicillin 250 mg capsule RxNorm: 313088 1 Capsule(s) Oral three times a day 11/07/19 20 2019 Inactive multivitamin with iron-mineral tablet RxNorm: 1 Tablet(s) Oral every day 10/29/19 20 03/01/ 2022 Inactive cetirizine 10 mg tablet RxNorm: 6541087 1 Tablet(s) PO daily 10/20/19 20 2019 Inactive This refill negates all other refills of this medication. Please do not auto refill Singulair 10 mg tablet RxNorm: 945561 1 Tablet(s) PO daily 10/20/19 20 2019 Inactive This refill negates all other refills of this medication gabapentin 300 mg capsule RxNorm: 891459 1 Capsule(s) PO TID 10/20/19 20 2019 Inactive lisinopril 2.5 mg tablet RxNorm: 499178 1 Tablet(s) PO daily 10/20/19 20 2019 Inactive levothyroxine 50 mcg tablet RxNorm: 808585 1 Tablet(s) PO daily 10/20/19 20 2019 Inactive This refill negates all other refills of this medication fenugreek seed extract 500 mg capsule RxNorm: 1 Capsule(s) Oral three times a day 10/17/19 20 2021 Inactive hydrochlorothiazide 25 mg tablet RxNorm: 591771 1 Tablet(s) Oral every day 10/17/19 20 2019 Inactive Alcohol Prep Pads RxNorm: 040029 1 Patch TOP QAM 10/16/19 20 2020 Inactive loperamide 2 mg tablet RxNorm: 089946 1 Tablet(s) Oral as needed take one [...] 2019 Inactive hydrochlorothiazide 25 mg tablet RxNorm: 668730 1 Tablet(s) Oral every day 09/19/20 19 2019 Inactive Sudafed 12 Hour 120 mg tablet,extended release RxNorm: 6253796 1 Tablet(s) Oral every 12 hours as needed 09/11/20 19 2018 Inactive omeprazole 20 mg capsule,delayed release RxNorm: 722607 1 Capsule(s) Oral every day 09/07/20 19 2019 Inactive Sudafed 12 Hour 120 mg tablet,extended release RxNorm: 0093672 1 Tablet(s) Oral every 12 hours as needed 09/04/20 19 2018 Inactive pantoprazole 40 mg tablet,delayed release RxNorm: 475969 1 Tablet(s) Oral every day 08/24/20 19 2018 Inactive discontinue any other H2Blkr. and PPI albuterol sulfate 2.5 mg/3 mL (0.083 %) solution for nebulization RxNorm: 045696 1 Vial Inhalation every four hours as needed as needed for dyspnea 08/17/202019 Inactive 60/box. This refill negates all other refills of this medication. Please do not fill early. Please do not auto refill. Symbicort 160 mcg-4.5 mcg/actuation HFA aerosol inhaler RxNorm: 5389117 2 Puff(s) INH BID 08/17/20 19 No Stop Date Active Alcohol Prep Pads RxNorm: 022992 1 Patch TOP QAM 08/17/20 19 2019 Inactive Ventolin HFA 90 mcg/actuation aerosol inhaler RxNorm: 805720 2 Puff(s) INH QID 08/09/20 19 2019 Inactive Please do not fill early. Please do not auto refill. This refill negates all other refills of this medication True Metrix Glucose Test Strip RxNorm: 1 Test Strips Miscellaneous QAM 08/09/20 19 2019 Inactive 100/container atorvastatin 40 mg tablet RxNorm: 895002 1 Tablet(s) Oral every day 07/04/20 19 2019 Inactive levmetamfetamine 50 mg nasal inhaler RxNorm: 1 Unit(s) NASAL Q3-4H Do not use more than every 3 hours or 8 times/24hours 06/26/20 19 2021 Inactive Please do not auto refill. This refill negates all other refills of this medication buspirone 7.5 mg tablet RxNorm: 976297 1 Tablet(s) PO BID 06/26/20 19 2020 Inactive This refill negates all other refills of this medication hydrochlorothiazide 12.5 mg tablet RxNorm: 342155 1 Tablet(s) PO QAM 06/26/20 19 2019 Inactive Ventolin HFA 90 mcg/actuation aerosol inhaler RxNorm: 230575 2 Puff(s) INH QID 06/26/20 19 2018 Inactive Please do not fill early. Please do not auto refill. This refill negates all other refills of this medication Singulair 10 mg tablet RxNorm: 275617 1 Tablet(s) PO daily 06/26/20 19 2019 Inactive This refill negates all other refills of this medication cetirizine 10 mg tablet RxNorm: 3638299 1 Tablet(s) PO daily 06/26/20 19 2019 Inactive This refill negates all other refills of this medication. Please do not auto refill levothyroxine 50 mcg tablet RxNorm: 950517 1 Tablet(s) PO daily 06/26/20 19 2019 Inactive This refill negates all other refills of this medication diclofenac sodium 75 mg tablet,delayed release RxNorm: 069274 1 Tablet(s) PO BID 06/26/20 19 2019 Inactive This refill negates all other refills of this medication ranitidine 150 mg tablet RxNorm: 400346 1 Tablet(s) PO BID 06/26/20 19 2018 Inactive This refill negates all other refills of this medication Calcium 600-D3 Plus (mag-zinc) 600 mg calcium-800 unit-50 mg tablet RxNorm: 1 Tablet(s) PO daily take an additonal tablet for itching. 06/26/20 19 2018 Inactive This refill negates all other refills of this medication albuterol sulfate 2.5 mg/3 mL (0.083 %) solution for nebulization RxNorm: 808807 1 Vial INH QID 06/26/20 19 2018 Inactive 60/box. This refill negates all other refills of this medication. Please do not fill early. Please do not auto refill. lisinopril 2.5 mg tablet RxNorm: 425435 1 Tablet(s) PO daily 06/21/20 19 2019 Inactive gabapentin 300 mg capsule RxNorm: 278480 1 Capsule(s) PO TID 06/21/20 19 2019 Inactive atorvastatin 20 mg tablet RxNorm: 708064 1 Tablet(s) PO QHS 06/07/20 19 2018 Inactive This refill negates all other refills of this medication TRUEplus Lancets 30 gauge RxNorm: 1 Lancets Miscellaneous QAM 05/29/20 19 2018 Inactive 100/box gabapentin 300 mg capsule RxNorm: 998690 1 Capsule(s) PO TID 05/03/20 19 2018 Inactive Flintstones Complete (iron) 18 mg iron chewable tablet RxNorm: 1 Tablet(s) PO daily 04/04/20 19 2021 Inactive This refill negates all other refills of this medication gabapentin 300 mg capsule RxNorm: 607876 1 Capsule(s) PO TID as needed 02/01/20 19 2018 Inactive True Metrix Glucose Test Strip RxNorm: 1 Test Strips Miscellaneous QA 02/01/20 19 2018 Inactive 100/container Alcohol Prep Pads RxNorm: 665062 1 Patch TOP QA 02/01/202018 Inactive TRUEplus Lancets 30 gauge RxNorm: 1 Lancets Miscellaneous QAM 02/01/20 19 2018 Inactive 100/box lisinopril 2.5 mg tablet RxNorm: 355814 1 Tablet(s) PO daily 12/28/19 19 2018 Inactive ranitidine 150 mg tablet RxNorm: 868249 1 Tablet(s) PO BID 10/21/19 19 2018 Inactive This refill negates all other refills of this medication albuterol sulfate 2.5 mg/3 mL (0.083 %) solution for nebulization RxNorm: 091097 1 Vial INH QID 10/21/19 19 2018 [...] this medication gabapentin 300 mg capsule RxNorm: 289258 1 Capsule(s) PO TID as needed 10/21/19 19 2018 Inactive atorvastatin 20 mg tablet RxNorm: 418422 1 Tablet(s) PO QHS 10/21/192018 Inactive This refill negates all other refills of this medication trazodone 50 mg tablet RxNorm: 059019 1 Tablet(s) PO QHS 10/21/192018 Inactive This refill negates all other refills of this medication Ventolin HFA 90 mcg/actuation aerosol inhaler RxNorm: 138630 2 Puff(s) INH QID 10/21/192018 Inactive Please do not fill early. Please do not auto refill. This refill negates all other refills of this medication Calcium 600-D3 Plus 600 mg calcium-800 unit-50 mg tablet RxNorm: 1 Tablet(s) PO daily take an additonal tablet for itching. 10/21/192018 Inactive This refill negates all other refills of this medication Singulair 10 mg tablet RxNorm: 049121 1 Tablet(s) PO daily 10/21/192018 Inactive This refill negates all other refills of this medication buspirone 7.5 mg tablet RxNorm: 635541 1 Tablet(s) PO BID 10/21/192018 Inactive This refill negates all other refills of this medication diclofenac sodium 75 mg tablet,delayed release RxNorm: 409801 1 Tablet(s) PO BID 10/21/192018 Inactive This refill negates all other refills of this medication hydrochlorothiazide 12.5 mg tablet RxNorm: 724001 1 Tablet(s) PO QAM 10/21/19 19 2018 Inactive metoprolol succinate ER 50 mg tablet,extended release 24 hr RxNorm: 658917 1 Tablet(s) PO daily 10/21/19 19 2018 Inactive This refill negates all other refills of this medication levothyroxine 50 mcg tablet RxNorm: 496661 1 Tablet(s) PO daily 10/21/192018 Inactive This refill negates all other refills of this medication cetirizine 10 mg tablet RxNorm: 7123551 1 Tablet(s) PO daily 10/21/192018 Inactive This refill negates all other refills of this medication. Please do not auto refill Flintstones Complete (iron) 18 mg iron chewable tablet RxNorm: 1 Tablet(s) PO daily 10/21/19 19 2018 Inactive This refill negates all other refills of this medication buspirone 7.5 mg tablet RxNorm: 401323 1 Tablet(s) PO BID 10/12/19 19 2018 Inactive cetirizine 10 mg tablet RxNorm: 5855537 1 Tablet(s) PO daily 09/28/20 18 2018 Inactive Guaiasorb DM 10 mg-100 mg/5 mL oral liquid RxNorm: 104970 10 Milliliter(s) PO As needed every 4 hr 09/24/20 18 2018 Inactive Vicks Vaporub 4.7 %-1.2 %-2.6 % topical ointment RxNorm: 7987030 1 Application TOP TID 09/24/20 18 2018 Inactive levmetamfetamine 50 mg nasal inhaler RxNorm: 1 Unit(s) NASAL Q3-4H 09/24/20 18 2017 Inactive sertraline 50 mg tablet RxNorm: 113886 1 Tablet(s) PO daily 09/09/20 18 2018 Inactive Please note dose trazodone 50 mg tablet RxNorm: 908765 1 Tablet(s) PO QHS 09/06/20 18 2018 Inactive sertraline 50 mg tablet RxNorm: 993011 1 Tablet(s) PO daily 09/06/20 18 2017 Inactive amoxicillin 500 mg tablet RxNorm: 340586 1 Tablet(s) PO Q12H 08/31/20 18 2017 Inactive albuterol sulfate 2.5 mg/3 mL (0.083 %) solution for nebulization RxNorm: 548778 1 Vial INH QID 08/10/20 18 2018 Inactive 60/box. Please do not fill early. Please do not auto refill. Prozac 10 mg capsule RxNorm: 483026 1 Capsule(s) PO daily 08/09/20 18 2017 Inactive buspirone 7.5 mg tablet RxNorm: 683592 1 Tablet(s) PO BID 08/09/20 18 2018 Inactive gabapentin 300 mg capsule RxNorm: 879225 1 Capsule(s) PO TID as needed 08/01/20 18 2018 Inactive hydrochlorothiazide 12.5 mg tablet RxNorm: 506552 1 Tablet(s) PO QAM 08/01/20 18 2018 Inactive ranitidine 150 mg tablet RxNorm: 218872 1 Tablet(s) PO BID 08/01/20 18 2018 Inactive Macrobid 100 mg capsule RxNorm: 041904 1 Capsule(s) PO Q12H 06/21/20 18 2017 Inactive Singulair 10 mg tablet RxNorm: 165116 1 Tablet(s) PO daily 06/14/20 18 2018 Inactive Ventolin HFA 90 mcg/actuation aerosol inhaler RxNorm: 1080789 2 Puff(s) INH QID 06/14/20 18 2018 Inactive Singulair 10 mg tablet RxNorm: 914188 1 Tablet(s) PO daily 06/14/20 18 2017 Inactive buspirone 7.5 mg tablet RxNorm: 451431 1 Tablet(s) PO BID 06/14/20 18 2017 Inactive Prozac 10 mg capsule RxNorm: 641937 1 Capsule(s) PO daily 06/14/20 18 2017 Inactive Neilmed Pediatric Sinus Rinse Refill packet RxNorm: 1 Unit Dose NASAL PRN 05/31/20 18 2021 Inactive diclofenac sodium 75 mg tablet,delayed release RxNorm: 895026 1 Tablet(s) PO BID 05/31/20 18 2017 Inactive lisinopril 2.5 mg tablet RxNorm: 397423 1 Tablet(s) PO daily 05/31/20 18 2017 Inactive metoprolol succinate ER 50 mg tablet,extended release 24 hr RxNorm: 621580 1 Tablet(s) PO daily 05/31/20 18 2017 Inactive levothyroxine 50 mcg tablet RxNorm: 679996 1 Tablet(s) PO daily 05/31/20 18 2017 Inactive TRUEplus Lancets 30 gauge RxNorm: 1 Lancets Miscellaneous QAM 05/31/20 18 2017 Inactive 100/box Ventolin HFA 90 mcg/actuation aerosol inhaler RxNorm: 910427 2 Puff(s) INH QID 05/31/20 18 2017 Inactive Aleve 220 mg capsule RxNorm: 6427481 1 Capsule(s) PO BID 05/31/20 18 2018 Inactive ranitidine 150 mg tablet RxNorm: 384600 1 Tablet(s) PO BID 05/31/20 18 2017 Inactive gabapentin 300 mg capsule RxNorm: 740464 1 Capsule(s) PO TID as needed 05/31/20 18 2017 Inactive atorvastatin 20 mg tablet RxNorm: 898505 1 Tablet(s) PO QHS 05/31/20 18 2017 Inactive True Metrix Glucose Test Strip RxNorm: 1 Test Strips Miscellaneous QAM 05/31/20 18 2017 Inactive 50/container Calcium 600-D3 Plus 600 mg calcium-800 unit-50 mg tablet RxNorm: 1 Tablet(s) PO daily take an additonal tablet for itching. 05/31/20 18 2017 Inactive hydrochlorothiazide 12.5 mg tablet RxNorm: 419185 1 Tablet(s) PO QAM 05/31/20 18 2017 Inactive Flintstones Complete (iron) 18 mg iron chewable tablet RxNorm: 1 Tablet(s) PO daily 05/31/20 18 2017 Inactive d-mannose oral powder RxNorm: PO 18 2021 Inactive True Metrix Glucose Meter RxNorm: miscellaneous 08/17/20 19 2018 Inactive sertraline 50 mg tablet RxNorm: 266931 1 Tablet(s) PO daily 11/28/19 20 2019 Inactive loperamide 2 mg tablet RxNorm: 787035 oral 09/29/20 19 2018 Inactive Symbicort 160 mcg-4.5 mcg/actuation HFA aerosol inhaler RxNorm: 2538512 2 Puff(s) INH BID 08/17/202018 Inactive Medication Administered No Medication Administered data Procedures Procedure Codes Date Hypertension CPT-4: HTN 04/01/2021 Tobacco Assessment/Screening CPT-4: TCA 08/2021 Patient Health Questionnaire CPT-4: DPHQ 08/2021 Mini Mental State Exam CPT-4: DMMA Annual Wellness Visit (Subsequent Visit) CPT-4: G0439 01/13/2021 Advanced Care Planning CPT-4: VACP Fall Risk Assessment SNOMED CT: 95488740 4 CPT-4: DFRA 01/13/2021 [place] Assessment CPT-4: DSWA 12/01 Urinalysis, dip stick CPT-4: 51896 09/24/2020 Patient Health Questionnaire CPT-4: DPHQ Electrocardiogram CPT-4: 74736 05/14/2020 Tobacco Assessment/Screening CPT-4: TCA Fall Risk Assessment SNOMED CT: 74003998 4 CPT-4: DFRA 01/01/2020 Functional Assessment CPT-4: DFA 01/01/2020 [place] Assessment CPT-4: DSWA 11/04 Patient Health Questionnaire CPT-4: DPHQ [place] Assessment CPT-4: DSWA 10/03 Hypertension CPT-4: HTN 10/17/2019 Fall Risk Assessment SNOMED CT: 40735395 4 CPT-4: DFRA 09/19/2019 Functional Assessment CPT-4: DFA 09/19/2019 Urinalysis, dip stick CPT-4: 14167 06/21/2019 Tobacco Assessment/Screening CPT-4: TCA Patient Health Questionnaire CPT-4: DPHQ AHA/REBECCA Classification Assessment CPT-4: DAHA 04/25/2019 Controlled Substance Report CPT-4: CTRSU 04/03 Urinalysis, dip stick CPT-4: 49131 03/28/2019 Urinalysis, dip stick CPT-4: 20425 03/28/2019 [id number]-Knivkvidfguafle CPT-4: 09236 Unknown O7Q-Qjkidboozneoytl CPT-4: 70329 Unknown W5R-Ktrrutrcnnnxheh CPT-4: 83729 Unknown S1Y-Ulepkiywrjujdrl CPT-4: 23375 Unknown U5V-Hydchillaywlffx CPT-4: 18296 Unknown Z2A-Pccezpkxsmztonh CPT-4: 41883 Unknown Y7J-Zsbhkudmbnmcyli CPT-4: 28038 Unknown Gynecology Referral SNOMED CT: 511029779 CPT-4: R14 Unknown Reason For Visit No [...] Referral Initiated Referral: [facility] WPtel: [address] [place] [address] [place] [employer] placed a call out to the patient to notify her that it has been recommended that she be seen by a urologist. Patient agreed to be seen, does not have a provider of choice and no transportation issues. [employer] faxed referral and clinical notes to [facility] in [place], [place] near the patient's home. Patient to [...] seen and prefers a provider in the [place] or [place] area. [employer] placed a call out to everyone listed in the area and the only location that was able to accept the patient's insurance was [facility] [address] [place] [address] and spoke with Maylin. Maylin asked that the patient's referral, face sheet and visit notes be faxed to . [employer] faxed over requested documents. Patient appointment confirmation letter generated and mailed to her home address. Patient to call to schedule an appointment. Processed Referral: [facility] y WPtel: [address] [place], [place] [id number] Patient notified that it has been advised that she be seen by Neurology. Patient agreed to be seen and prefers to be seen by a provider in the [place], [place] area. Patient denies any concerns with transportation, and prefers to schedule her own appointment. [employer] placed a call out to [facility] and spoke with Neeraj Mcfarland: who confirmed that their office is able to accept new patients and the patient's insurance. After confirming the providers fax number, securities underwriter faxed over the patient's referral, and [...]
--- OUTSIDE RECORDS SUMMARY | 2023-12-07 02:16 | XMS_ITS | CCD ---
Author Name Leena Culver NP Address [id number] [place] [address] [place] [address] Phone Organization [facility] Phone Care Team Providers Care Telephone Information Clerk Name Role Phone Anna Culver NP Primary Care Provider Unav ailable Unavailable Chronic Care Management Unavaila ble Summary Purpose DataExchange Insurance Providers Payer name Policy type / Coverage type Covered democrat ID Effective Begin Date Effective End Date SUKI MAYO [id number] Unknown Unknown Family history Mother Diagnosis Age [...] Unknown Disability 05/31/[address]: 073783983 Has never s moked or chewed tobacco 05/31/[address]: 596861727 Never drinks alco hol 05/31/2018 Has the patient ever used illegal drugs? Unknown Has never used illegal drugs 05/31/2018 DNR Order/ Advanced Directive Unknown Full Code 05/31/2018 Allergies, Adverse Reactions, Alerts Substance Reaction Codes Entered Date Inactivated Date Status OxyContin itch, RxNorm: 452531 01/13/2021 No Inactive Da te Active *No known food allergies Unknown 09/06/2018 No I nactive Date Active Methylprednisolone hives RxNorm: 6902 09/06/2018 No Inac tive Date Active Problems Condition Codes Effective Dates Condition St atus Anorexia ICD-10: R63.0 ICD-9: 783.0 12/17/2020 Active Chronic kidney disease, stag e 2 [...] 784.0 10/03/2018 Inactive Other chcf (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 ICD-10: Z79.899 ICD-9: V58.69 04/25/2019 Inactive Type 2 diabetes mellitus wit hout complications ICD-10: E11.9 ICD-9: 250.00 10/03/2018 Inactive Wheezing ICD-10: R06.2 ICD-9: 786.07 08/08/2018 Inactive Abnormal urine finding ICD-10: R82.90 ICD-9: 791.9 09/24/2020 Resolved Abrasion of toe ICD-10: S90.416A ICD-9: 917.0 02/14/2020 Resolved Acute upper respiratory infe ction, unspecified ICD-10: J06.9 ICD-9: 465.9 09/04/2019 Resolved [place] eye ICD-10: H10.029 ICD-9: 372.03 12/29/2019 Resolved [...] unspecified ICD-10: R60.9 ICD-9: 782.3 07/11/2018 Active nursing home (current) use of non-steroidal anti-inflammatories (NSAID) ICD-10: Z79.1 ICD-9: V58.64 06/13/2018 Active Medications Medication Codes Instructions Start Date Stop Date Status Fill Instructions omeprazole 20 mg capsule,delayed release RxNorm: 633410 1 Capsule(s) Oral every evening 04/03/20 21 2020 Inactive sertraline 100 mg tablet RxNorm: 592304 2 Tablet(s) Oral every day 03/13/20 21 2020 Inactive levothyroxine 50 mcg tablet RxNorm: 286186 TAKE (1) TABLET BY MOUTH DAILY 02/04/20 21 2020 Inactive metformin 500 mg tablet RxNorm: 202406 1 Tablet(s) Oral two times a day take with 500mg to equal 1000mg 01/14/20 21 2020 Inactive gabapentin 300 mg capsule RxNorm: 984023 TAKE 1 CAPSULE BY MOUTH THREE TIMES A DAY 01/14/20 21 2020 Inactive lisinopril 2.5 mg tablet RxNorm: 397434 TAKE 1 TABLET BY MOUTH DAILY 01/06/20 21 2020 Inactive gabapentin 300 mg capsule RxNorm: 126039 TAKE 1 CAPSULE BY MOUTH THREE TIMES A DAY 01/06/20 21 2020 Inactive Singulair 10 mg tablet RxNorm: 637899 TAKE (1) TABLET BY MOUTH DAILY 01/06/20 21 2020 Inactive metformin 1,000 mg tablet RxNorm: 311876 1 Tablet(s) Oral two times a day 01/06/20 21 2020 Inactive atorvastatin 40 mg tablet RxNorm: 163292 1 Tablet(s) Oral every day 12/06/19 21 2020 Inactive omeprazole 20 mg capsule,delayed release RxNorm: 366596 1 Capsule(s) Oral every evening 11/24/19 21 2020 Inactive famotidine 10 mg tablet RxNorm: 684579 1 Tablet(s) Oral every morning 11/24/19 21 2020 Inactive Alcohol Prep Pads RxNorm: 061946 USE EACH MORNING 10/14/19 21 2020 Inactive omeprazole 20 mg capsule,delayed release RxNorm: 518955 1 Capsule(s) Oral two times a day 10/13/19 21 2021 Inactive omeprazole 20 mg capsule,delayed release RxNorm: 499021 TAKE 1 CAPSULE BY MOUTH EVERY DAY 10/08/19 21 2021 Inactive Macrobid 100 mg capsule RxNorm: 027004 1 Capsule(s) Oral every 12 hours with food 10/01/202020 Inactive omeprazole 20 mg capsule,delayed release RxNorm: 308996 1 Capsule(s) Oral two times a day 09/24/202021 Inactive metformin 1,000 mg tablet RxNorm: 302824 1 Tablet(s) Oral two times a day 08/19/20 20 2020 Inactive start on September 11, 2020 metformin 500 mg tablet RxNorm: 735277 1 Tablet(s) Oral two times a day take with 500mg to equal 1000mg 08/19/202019 Inactive gabapentin 300 mg capsule RxNorm: 002335 TAKE 1 CAPSULE BY MOUTH THREE TIMES DAILY 07/11/202020 Inactive cetirizine 10 mg tablet RxNorm: 8787108 TAKE (1) TABLET BY MOUTH DAILY 07/11/20 20 2020 Inactive metformin 500 mg tablet RxNorm: 175927 1 Tablet(s) Oral two times a day 07/08/20 20 2019 Inactive loperamide 2 mg tablet RxNorm: 299346 1 Tablet(s) Oral as needed take one tablet after each loose stool, maximum of 8 tablets in 24 hours 06/24/202021 Inactive Sudafed 12 Hour 120 mg tablet,extended release RxNorm: 3899503 TAKE 1 TABLET BY MOUTH EVERY 12 HOURS NEEDED 06/11/20 20 2019 Inactive hydrochlorothiazide 25 mg tablet RxNorm: 646601 TAKE (1) TABLET BY MOUTH EVERY DAY 06/11/202019 Inactive omeprazole 20 mg capsule,delayed release RxNorm: 729359 TAKE 1 CAPSULE BY MOUTH EVERY DAY 05/14/202020 Inactive metformin 500 mg tablet RxNorm: 158503 1 Tablet(s) Oral every day 05/12/20 20 2019 Inactive True Metrix Glucose Test Strip RxNorm: 1 Test Strips Miscellaneous two times a day as needed 04/17/20 No Stop Date Active metformin 500 mg tablet RxNorm: 963724 1 Tablet(s) Oral every day 04/17/20 20 2019 Inactive diclofenac sodium 75 mg tablet,delayed release RxNorm: 630634 1 Tablet(s) PO BID 04/14/20 20 2021 Inactive This refill negates all other refills of this medication Sudafed 12 Hour 120 mg tablet,extended release RxNorm: 5776693 TAKE 1 TABLET BY MOUTH EVERY 12 HOURS NEEDED 03/14/20 20 2019 Inactive True Metrix Glucose Test Strip RxNorm: 1 Test Strips Miscellaneous every morning 03/13/20 20 2019 Inactive 100/container True Metrix Glucose Test Strip RxNorm: 1 Test Strips Miscellaneous QAM 02/22/20 20 2019 Inactive 100/container loperamide 2 mg tablet RxNorm: 099438 1 Tablet(s) Oral as needed take one tablet after each loose stool, maximum of 8 tablets in 24 hours 02/22/20 20 2019 Inactive cetirizine 10 mg tablet RxNorm: 4989575 1 Tablet(s) PO daily 01/17/20 20 2019 Inactive loperamide 2 mg tablet RxNorm: 665293 1 Tablet(s) Oral as needed take one tablet after each loose stool, maximum of 8 tablets in 24 hours 01/17/20 20 2019 Inactive quetiapine 100 mg tablet RxNorm: 858117 1 Tablet(s) Oral every night at bedtime 01/17/20 20 2019 Inactive levothyroxine 50 mcg tablet RxNorm: 992261 1 Tablet(s) PO daily 01/17/20 20 2020 Inactive gabapentin 300 mg capsule RxNorm: 067025 1 Capsule(s) PO TID 01/17/20 20 2019 Inactive levothyroxine 50 mcg tablet RxNorm: 305271 1 Tablet(s) PO daily 01/15/20 20 2019 Inactive lisinopril 2.5 mg tablet RxNorm: 346843 1 Tablet(s) PO daily 01/15/20 20 2020 Inactive gabapentin 300 mg capsule RxNorm: 617856 1 Capsule(s) PO TID 01/15/20 20 2019 Inactive cetirizine 10 mg tablet RxNorm: 8114017 1 Tablet(s) PO daily 01/15/20 20 2019 Inactive Singulair 10 mg tablet RxNorm: 836041 1 Tablet(s) PO daily 01/15/20 20 2020 Inactive gentamicin 0.3 % eye drops RxNorm: 562884 1 Drop(s) ophthalmic (eye) four times a day 12/29/19 20 2019 Inactive gentamicin 0.3 % eye drops RxNorm: 606642 1 Drop(s) ophthalmic (eye) four times a day 12/29/19 20 2019 Inactive gentamicin 0.3 % eye drops RxNorm: 286409 1 Drop(s) ophthalmic (eye) four times a day 12/29/19 20 2019 Inactive hydrochlorothiazide 25 mg tablet RxNorm: 658595 1 Tablet(s) Oral every day 12/21/19 20 2019 Inactive Sudafed 12 Hour 120 mg tablet,extended release RxNorm: 4795947 TAKE (1) TABLET BY MOUTH EVERY 12 HOURS NEEDED 12/21/19 20 2019 Inactive loperamide 2 mg tablet RxNorm: 724714 1 Tablet(s) Oral as needed take one tablet after each loose stool, maximum of 8 tablets in 24 hours 12/11/19 20 2019 Inactive loperamide 2 mg tablet RxNorm: 377926 1 Tablet(s) Oral as needed take one tablet after each loose stool, maximum of 8 tablets in 24 hours 12/11/19 20 2019 Inactive atorvastatin 40 mg tablet RxNorm: 772234 1 Tablet(s) Oral every day 11/29/19 20 2020 Inactive quetiapine 100 mg tablet RxNorm: 097266 1 Tablet(s) Oral every night at bedtime 11/28/19 20 2019 Inactive sertraline 100 mg tablet RxNorm: 307527 1 Tablet(s) Oral 11/28/19 20 2019 Inactive omeprazole 20 mg capsule,delayed release RxNorm: 940186 1 Capsule(s) Oral every day 11/20/19 20 2019 Inactive amoxicillin 250 mg capsule RxNorm: 616668 1 Capsule(s) Oral three times a day 11/07/19 20 2019 Inactive multivitamin with iron-mineral tablet RxNorm: 1 Tablet(s) Oral every day 10/29/19 20 2021 Inactive cetirizine 10 mg tablet RxNorm: 3126588 1 Tablet(s) PO daily 10/20/19 20 2019 Inactive This refill negates all other refills of this medication. Please do not auto refill Singulair 10 mg tablet RxNorm: 935215 1 Tablet(s) PO daily 10/20/19 20 2019 Inactive This refill negates all other refills of this medication gabapentin 300 mg capsule RxNorm: 066358 1 Capsule(s) PO TID 10/20/19 20 2019 Inactive lisinopril 2.5 mg tablet RxNorm: 156092 1 Tablet(s) PO daily 10/20/19 20 2019 Inactive levothyroxine 50 mcg tablet RxNorm: 841757 1 Tablet(s) PO daily 10/20/19 20 2019 Inactive This refill negates all other refills of this medication fenugreek seed extract 500 mg capsule RxNorm: 1 Capsule(s) Oral three times a day 10/17/19 20 2021 Inactive hydrochlorothiazide 25 mg tablet RxNorm: 775491 1 Tablet(s) Oral every day 10/17/19 20 2019 Inactive Alcohol Prep Pads RxNorm: 681059 1 Patch TOP QAM 10/16/19 20 2020 Inactive loperamide 2 mg tablet RxNorm: 849568 1 Tablet(s) Oral as needed take one [...] 30 gauge RxNorm: 1 Lancets Miscellaneous QAM 12/21/20 19 2019 Inactive 100/box fenugreek seed extract 500 mg capsule RxNorm: 1 Capsule(s) Oral three times a day 09/19/20 19 2019 Inactive hydrochlorothiazide 25 mg tablet RxNorm: 223646 1 Tablet(s) Oral every day 09/19/20 19 2019 Inactive Sudafed 12 Hour 120 mg tablet,extended release RxNorm: 6655321 1 Tablet(s) Oral every 12 hours as needed 09/11/20 19 2018 Inactive omeprazole 20 mg capsule,delayed release RxNorm: 537721 1 Capsule(s) Oral every day 09/07/20 19 2019 Inactive Sudafed 12 Hour 120 mg tablet,extended release RxNorm: 0555987 1 Tablet(s) Oral every 12 hours as needed 09/04/20 19 2018 Inactive pantoprazole 40 mg tablet,delayed release RxNorm: 270373 1 Tablet(s) Oral every day 08/24/20 19 2018 Inactive discontinue any other H2Blkr. and PPI albuterol sulfate 2.5 mg/3 mL (0.083 %) solution for nebulization RxNorm: 184575 1 Vial Inhalation every four hours as needed as needed for dyspnea 08/17/20 19 2019 Inactive 60/box. This refill negates all other refills of this medication. Please do not fill early. Please do not auto refill. Symbicort 160 mcg-4.5 mcg/actuation HFA aerosol inhaler RxNorm: 2687428 2 Puff(s) INH BID 08/17/20 19 No Stop Date Active Alcohol Prep Pads RxNorm: 427133 1 Patch TOP QAM 08/17/20 19 2019 Inactive Ventolin HFA 90 mcg/actuation aerosol inhaler RxNorm: 607664 2 Puff(s) INH QID 08/09/20 19 2019 Inactive Please do not fill early. Please do not auto refill. This refill negates all other refills of this medication True Metrix Glucose Test Strip RxNorm: 1 Test Strips Miscellaneous QAM 08/09/20 19 2019 Inactive 100/container atorvastatin 40 mg tablet RxNorm: 093334 1 Tablet(s) Oral every day 07/04/20 19 2019 Inactive levmetamfetamine 50 mg nasal inhaler RxNorm: 1 Unit(s) NASAL Q3-4H Do not use more than every 3 hours or 8 times/24hours 06/26/20 19 2021 Inactive Please do not auto refill. This refill negates all other refills of this medication buspirone 7.5 mg tablet RxNorm: 159627 1 Tablet(s) PO BID 06/26/20 19 2020 Inactive This refill negates all other refills of this medication hydrochlorothiazide 12.5 mg tablet RxNorm: 242341 1 Tablet(s) PO QAM 06/26/20 19 2019 Inactive Ventolin HFA 90 mcg/actuation aerosol inhaler RxNorm: 725847 2 Puff(s) INH QID 06/26/20 19 2018 Inactive Please do not fill early. Please do not auto refill. This refill negates all other refills of this medication Singulair 10 mg tablet RxNorm: 444284 1 Tablet(s) PO daily 06/26/20 19 2019 Inactive This refill negates all other refills of this medication cetirizine 10 mg tablet RxNorm: 6229596 1 Tablet(s) PO daily 06/26/20 19 2019 Inactive This refill negates all other refills of this medication. Please do not auto refill levothyroxine 50 mcg tablet RxNorm: 769626 1 Tablet(s) PO daily 06/26/20 19 2019 Inactive This refill negates all other refills of this medication diclofenac sodium 75 mg tablet,delayed release RxNorm: 845044 1 Tablet(s) PO BID 06/26/20 19 2019 Inactive This refill negates all other refills of this medication ranitidine 150 mg tablet RxNorm: 856082 1 Tablet(s) PO BID 06/26/20 19 2018 Inactive This refill negates all other refills of this medication Calcium 600-D3 Plus (mag-zinc) 600 mg calcium-800 unit-50 mg tablet RxNorm: 1 Tablet(s) PO daily take an additonal tablet for itching. 06/26/20 19 2018 Inactive This refill negates all other refills of this medication albuterol sulfate 2.5 mg/3 mL (0.083 %) solution for nebulization RxNorm: 620184 1 Vial INH QID 06/26/20 19 2018 Inactive 60/box. This refill negates all other refills of this medication. Please do not fill early. Please do not auto refill. lisinopril 2.5 mg tablet RxNorm: 836449 1 Tablet(s) PO daily 06/21/20 19 2019 Inactive gabapentin 300 mg capsule RxNorm: 175478 1 Capsule(s) PO TID 06/21/20 19 2019 Inactive atorvastatin 20 mg tablet RxNorm: 242692 1 Tablet(s) PO QHS 06/07/20 19 2018 Inactive This refill negates all other refills of this medication TRUEplus Lancets 30 gauge RxNorm: 1 Lancets Miscellaneous QAM 05/29/20 19 2018 Inactive 100/box gabapentin 300 mg capsule RxNorm: 441450 1 Capsule(s) PO TID 05/03/20 19 2018 Inactive Flnickolas Complete (iron) 18 mg iron chewable tablet RxNorm: 1 Tablet(s) PO daily 04/04/20 19 2021 Inactive This refill negates all other refills of this medication gabapentin 300 mg capsule RxNorm: 154534 1 Capsule(s) PO TID as needed 02/01/20 19 2018 Inactive True Metrix Glucose Test Strip RxNorm: 1 Test Strips Miscellaneous QAM 02/01/20 19 2018 Inactive 100/container Alcohol Prep Pads RxNorm: 002100 1 Patch TOP QAM 02/01/20 19 2018 Inactive TRUEplus Lancets 30 gauge RxNorm: 1 Lancets Miscellaneous QAM 02/01/20 19 2018 Inactive 100/box lisinopril 2.5 mg tablet RxNorm: 973700 1 Tablet(s) PO daily 03/27/2018 Inactive ranitidine 150 mg tablet RxNorm: 914336 1 Tablet(s) PO BID 10/21/192018 Inactive This refill negates all other refills of this medication albuterol sulfate 2.5 mg/3 mL (0.083 %) solution for nebulization RxNorm: 707995 1 Vial INH QID 10/21/192018 Inactive 60/box. [...] this medication gabapentin 300 mg capsule RxNorm: 164257 1 Capsule(s) PO TID as needed 10/21/192018 Inactive atorvastatin 20 mg tablet RxNorm: 316708 1 Tablet(s) PO QHS 10/21/192018 Inactive This refill negates all other refills of this medication trazodone 50 mg tablet RxNorm: 767326 1 Tablet(s) PO QHS 10/21/192018 Inactive This refill negates all other refills of this medication Ventolin HFA 90 mcg/actuation aerosol inhaler RxNorm: 946949 2 Puff(s) INH QID 10/21/192018 Inactive Please do not fill early. Please do not auto refill. This refill negates all other refills of this medication Calcium 600-D3 Plus 600 mg calcium-800 unit-50 mg tablet RxNorm: 1 Tablet(s) PO daily take an additonal tablet for itching. 10/21/192018 Inactive This refill negates all other refills of this medication Singulair 10 mg tablet RxNorm: 533138 1 Tablet(s) PO daily 10/21/192018 Inactive This refill negates all other refills of this medication buspirone 7.5 mg tablet RxNorm: 992792 1 Tablet(s) PO BID 10/21/19 19 2018 Inactive This refill negates all other refills of this medication diclofenac sodium 75 mg tablet,delayed release RxNorm: 177587 1 Tablet(s) PO BID 10/21/19 19 2018 Inactive This refill negates all other refills of this medication hydrochlorothiazide 12.5 mg tablet RxNorm: 246264 1 Tablet(s) PO QAM 10/21/19 19 2018 Inactive metoprolol succinate ER 50 mg tablet,extended release 24 hr RxNorm: 354002 1 Tablet(s) PO daily 10/21/19 19 2018 Inactive This refill negates all other refills of this medication levothyroxine 50 mcg tablet RxNorm: 394736 1 Tablet(s) PO daily 10/21/19 19 2018 Inactive This refill negates all other refills of this medication cetirizine 10 mg tablet RxNorm: 3901599 1 Tablet(s) PO daily 10/21/192018 Inactive This refill negates all other refills of this medication. Please do not auto refill Flintstones Complete (iron) 18 mg iron chewable tablet RxNorm: 1 Tablet(s) PO daily 10/21/19 19 2018 Inactive This refill negates all other refills of this medication buspirone 7.5 mg tablet RxNorm: 906333 1 Tablet(s) PO BID 10/12/192018 Inactive cetirizine 10 mg tablet RxNorm: 7133705 1 Tablet(s) PO daily 09/28/202018 Inactive Guaiasorb DM 10 mg-100 mg/5 mL oral liquid RxNorm: 604950 10 Milliliter(s) PO As needed every 4 hr 09/24/20 18 2018 Inactive Vicks Vaporub 4.7 %-1.2 %-2.6 % topical ointment RxNorm: 5601770 1 Application TOP TID 09/24/20 18 2018 Inactive levmetamfetamine 50 mg nasal inhaler RxNorm: 1 Unit(s) NASAL Q3-4H 09/24/20 18 2017 Inactive sertraline 50 mg tablet RxNorm: 425353 1 Tablet(s) PO daily 09/09/20 18 2018 Inactive Please note dose trazodone 50 mg tablet RxNorm: 247036 1 Tablet(s) PO QHS 09/06/20 18 2018 Inactive sertraline 50 mg tablet RxNorm: 277645 1 Tablet(s) PO daily 09/06/20 18 2017 Inactive amoxicillin 500 mg tablet RxNorm: 352722 1 Tablet(s) PO Q12H 08/31/20 18 2017 Inactive albuterol sulfate 2.5 mg/3 mL (0.083 %) solution for nebulization RxNorm: 031891 1 Vial INH QID 08/10/20 18 2018 Inactive 60/box. Please do not fill early. Please do not auto refill. Prozac 10 mg capsule RxNorm: 882638 1 Capsule(s) PO daily 08/09/20 18 2017 Inactive buspirone 7.5 mg tablet RxNorm: 298492 1 Tablet(s) PO BID 08/09/20 18 2018 Inactive gabapentin 300 mg capsule RxNorm: 526199 1 Capsule(s) PO TID as needed 08/01/20 18 2018 Inactive hydrochlorothiazide 12.5 mg tablet RxNorm: 374414 1 Tablet(s) PO QAM 08/01/20 18 2018 Inactive ranitidine 150 mg tablet RxNorm: 696836 1 Tablet(s) PO BID 08/01/20 18 2018 Inactive Macrobid 100 mg capsule RxNorm: 173991 1 Capsule(s) PO Q12H 06/21/20 18 2017 Inactive Singulair 10 mg tablet RxNorm: 774507 1 Tablet(s) PO daily 06/14/20 18 2018 Inactive Ventolin HFA 90 mcg/actuation aerosol inhaler RxNorm: 0674847 2 Puff(s) INH QID 06/14/20 18 2018 Inactive Singulair 10 mg tablet RxNorm: 897825 1 Tablet(s) PO daily 06/14/20 18 2017 Inactive buspirone 7.5 mg tablet RxNorm: 854432 1 Tablet(s) PO BID 06/14/20 18 2017 Inactive Prozac 10 mg capsule RxNorm: 837442 1 Capsule(s) PO daily 06/14/20 18 2017 Inactive Neilmed Pediatric Sinus Rinse Refill packet RxNorm: 1 Unit Dose NASAL PRN 05/31/20 18 2021 Inactive diclofenac sodium 75 mg tablet,delayed release RxNorm: 183540 1 Tablet(s) PO BID 05/31/20 18 2017 Inactive lisinopril 2.5 mg tablet RxNorm: 165103 1 Tablet(s) PO daily 05/31/20 18 2017 Inactive metoprolol succinate ER 50 mg tablet,extended release 24 hr RxNorm: 107464 1 Tablet(s) PO daily 05/31/20 18 2017 Inactive levothyroxine 50 mcg tablet RxNorm: 171290 1 Tablet(s) PO daily 05/31/20 18 2017 Inactive TRUEplus Lancets 30 gauge RxNorm: 1 Lancets Miscellaneous QAM 05/31/20 18 2017 Inactive 100/box Ventolin HFA 90 mcg/actuation aerosol inhaler RxNorm: 606180 2 Puff(s) INH QID 05/31/20 18 2017 Inactive Aleve 220 mg capsule RxNorm: 3226318 1 Capsule(s) PO BID 05/31/20 18 2018 Inactive ranitidine 150 mg tablet RxNorm: 857421 1 Tablet(s) PO BID 05/31/20 18 2017 Inactive gabapentin 300 mg capsule RxNorm: 632654 1 Capsule(s) PO TID as needed 05/31/20 18 2017 Inactive atorvastatin 20 mg tablet RxNorm: 936862 1 Tablet(s) PO QHS 05/31/20 18 2017 Inactive True Metrix Glucose Test Strip RxNorm: 1 Test Strips Miscellaneous QAM 05/31/20 18 2017 Inactive 50/container Calcium 600-D3 Plus 600 mg calcium-800 unit-50 mg tablet RxNorm: 1 Tablet(s) PO daily take an additonal tablet for itching. 05/31/20 18 2017 Inactive hydrochlorothiazide 12.5 mg tablet RxNorm: 072324 1 Tablet(s) PO QAM 05/31/20 18 2017 Inactive Flintstones Complete (iron) 18 mg iron chewable tablet RxNorm: 1 Tablet(s) PO daily 05/31/20 18 2017 Inactive d-mannose oral powder RxNorm: PO 18 2021 Inactive True Metrix Glucose Meter RxNorm: miscellaneous 08/17/20 19 2018 Inactive sertraline 50 mg tablet RxNorm: 713156 1 Tablet(s) PO daily 11/28/19 20 2019 Inactive loperamide 2 mg tablet RxNorm: 300911 oral 09/29/20 19 2018 Inactive Symbicort 160 mcg-4.5 mcg/actuation HFA aerosol inhaler RxNorm: 8910603 2 Puff(s) INH BID 08/17/20 19 2018 Inactive Medication Administered No Medication Administered data Procedures Procedure Codes Date Hypertension CPT-4: HTN 04/01/2021 Tobacco Assessment/Screening CPT-4: TCA 08/2021 Patient Health Questionnaire CPT-4: DPHQ 08/2021 Mini Mental State Exam CPT-4: DMMA Annual Wellness Visit (Subsequent Visit) CPT-4: G0439 01/13/2021 Advanced Care Planning CPT-4: VACP Fall Risk Assessment SNOMED CT: 83085529 4 CPT-4: DFRA 01/13/2021 Ault Fany Assessment CPT-4: DSWA 12/01 Urinalysis, dip stick CPT-4: 29535 09/24/2020 Patient Health Questionnaire CPT-4: DPHQ Electrocardiogram CPT-4: 67882 05/14/2020 Tobacco Assessment/Screening CPT-4: TCA Fall Risk Assessment SNOMED CT: 70232791 4 CPT-4: DFRA 01/01/2020 Functional Assessment CPT-4: DFA 01/01/2020 Ault Fany Assessment CPT-4: DSWA 11/04 Patient Health Questionnaire CPT-4: DPHQ Ault Fany Assessment CPT-4: DSWA 10/03 Hypertension CPT-4: HTN 10/17/2019 Fall Risk Assessment SNOMED CT: 86958203 4 CPT-4: DFRA 09/19/2019 Functional Assessment CPT-4: DFA 09/19/2019 Urinalysis, dip stick CPT-4: 46042 06/21/2019 Tobacco Assessment/Screening CPT-4: TCA Patient Health Questionnaire CPT-4: DPHQ AHA/REBECCA Classification Assessment CPT-4: DAHA 04/25/2019 Controlled Substance Report CPT-4: CTRSU 04/03 Urinalysis, dip stick CPT-4: 10955 03/28/2019 Urinalysis, dip stick CPT-4: 30370 03/28/2019 O6R-Eukijrorpulabhd CPT-4: 82941 Unknown H5M-Rjbxeseoxkifzzq CPT-4: 86178 Unknown U6S-Fkxpohxbqllucis CPT-4: 50601 Unknown M8L-Kqbawhwwtrkgvvl CPT-4: 91782 Unknown A1H-Glohlywqizwheqd CPT-4: 50131 Unknown I0K-Vlwbxaqqoklnbmt CPT-4: 43555 Unknown L2A-Oidscyyurezvxrk CPT-4: 05067 Unknown Gynecology Referral SNOMED CT: 400320800 CPT-4: R14 Unknown Reason For Visit Reason For Visit Effective Dates Notes neurologic complaint 04/28/2021 diabetes mellitus 04/28/2021 Encounters Encounter Performer Location Location Address Codes Magdi e ([id number]) (EST PT) DETAILED TELEHEALTH VISIT Diagnosis: Syncope and collapse[ICD10: R55] Diagnosis: Type 2 diabetes mellitus with peripheral neuropathy[ICD10: E11.42] Diagnosis: Family history of seizures[ICD10: Z84.89] Diagnosis: Hypertensive heart disease with heart failure[ICD10: I11.0] Diagnosis: Chronic kidney disease, stage 2 (mild)[ICD10: N18.2] Diagnosis: Anorexia[ICD10: R63.0] Anna Culver [place] [facility] [id number] [place] [address] CPT-4: 78617 04/28/2021 Plan of Care Planned Activity Notes Codes Status Date Patient Education: Patient Medication Summary Completed 04/28/2021 Patient Education: Diabetes Complete d 04/28/2021 Care Plan: Domiciliary/Facility Communication Ordered 04/28/2021 Appointment: Chivo Bishop WPtel: [address] [place] [address] ETV 04/15/2021 Appointment: Anna Culver WPtel: [address] [place] [address] E410 04/01/2021 Appointment: Anna Culver WPtel: [address] [place] [address] ETV 03/24/2021 Appointment: Anna Culver WPtel: [address] [place] [address] ETV 03/13/2021 Appointment: Anna Culver WPtel: [address] [place] [address] E410 02/11/2021 Appointment: Chivo Bishop WPtel: [address] [place] [address] E410 01/29/2021 Appointment: Anna Culver WPtel: [address] [place] [address] ETV 01/13/2021 Appointment: Anna Culver WPtel: [address] [place] [address] E410 12/17/2020 Appointment: Chivo Bishop WPtel: [address] [place] [address] ETV 11/28/2020 Appointment: Anna Culver WPtel: [address] [place] [address] ETV 11/24/2020 Appointment: Anna Culver WPtel: [address] [place] [address] E410 10/29/2020 Appointment: Anna Culver WPtel: [id number] [place] [address] [place] E410 09/24/2020 Appointment: Anna Culver WPtel: [address] [place] [address] ETV 08/26/2020 Appointment: Anna Culver WPtel: [address] [place] [address] ETV 08/19/2020 Appointment: Anna Culver WPtel: [address] [place] [address] ETV 07/22/2020 Appointment: Anna Culver WPtel: [address] [place] [address] ETV 07/08/2020 Appointment: Gianna Birmingham: [id number] ECHO 07/02/2020 Appointment: Anna Culver WPtel: [address] [place] [address] E452 06/11/2020 Appointment: Anna Culver WPtel: [address] [place] [address] E452 05/14/2020 Appointment: Anna Culver WPtel: [address] [place] [address] E452 04/17/2020 Appointment: Anna Culver WPtel: [address] [place] [address] [place] E452 03/21/2020 Appointment: Anna Culver WPtel: [address] [place] [address] [place] E452 02/14/2020 Appointment: Anna Culver WPtel: [address] [place] [address] [place] E452 01/24/2020 Appointment: Anna Culver WPtel: [address] [place] [address] [place] E452 01/01/2020 Appointment: Anna Culver WPtel: [address] [place] [address] E452 11/28/2019 Appointment: Anna Culver WPtel: [id number] E452 10/17/2019 Appointment: Anna Culver WPtel: [address] [place] [address] E452 09/19/2019 Appointment: Sudha Hernadez WPtel: [address] [place] [id number] 07/04/2019 Appointment: Sudha Hernadez WPtel: [address] [id number] 06/21/2019 Appointment: Charlene Oropeza WPtel: [address] [id number] 05/24/2019 Appointment: Mallory Delgado [facility] 04/27/2019 Appointment: Charlene Oropeza WPtel: [address] [id number] 04/25/2019 Appointment: Rasta Palafox WPtel: [address] [id number] 03/28/2019 Appointment: Rasta Palafox WPtel: [address] [id number] 02/14/2019 Appointment: Rasta Palafox WPtel: [address] [id number] 01/31/2019 Appointment: Rasta Palafox WPtel: [address] [id number] 12/27/2018 Referral: Pending Gynecology Referral Information Referral Processed Referral: Pending Pulmonolog y Referral Information Referral Processed Referral: Pending Psychiatry Referral Information Referral Initiated Referral: Pending Respirator y Services Referral Information Referral Initiated Referral: Pending Ophthalmology Referral Information Referral Initiated Referral: [facility] WPtel: [address] Pediatric Surgeon placed a call out to the patient to notify her that it has been recommended that she be seen by a urologist. Patient agreed to be seen, does not have a provider of choice and no transportation issues. Pediatric Surgeon faxed referral and clinical notes to [facility] in [place], [place] near the patient's home. Patient to [...] seen and prefers a provider in the [place] or [place] area. Pediatric Surgeon placed a call out to everyone listed in the area and the only location that was able to accept the patient's insurance was [address] [id number] and spoke with Maylin. Maylin asked that the patient's referral, face sheet and visit notes be faxed to . Pediatric Surgeon faxed over requested documents. Patient appointment confirmation letter generated and mailed to her home address. Patient to call to schedule an appointment. Processed Referral: [facility] WPtel: [address] [facility] [address] [place], [place] [id number] Patient notified that it has been advised that she be seen by Neurology. Patient agreed to be seen and prefers to be seen by a provider in the [place], [place] area. Patient denies any concerns with transportation, and prefers to schedule her own appointment. Pediatric Surgeon placed a call out to [facility] [...]
--- OUTSIDE RECORDS SUMMARY | 2023-12-07 02:16 | XMS_ITS | CCD ---
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 Sponsorship Coordinator Name Role Phone Palomo KING, Anna Primary Care Provider Unav ailable Unavailable Chronic Care Management Unavaila ble Summary Purpose DataExchange Insurance Providers Payer name Policy type / Coverage type Covered libertarian ID Effective Begin Date Effective End Date SUKI MAYO [id number] Unknown Unknown Family history Mother Diagnosis Age [...] Unknown Disability 05/31/[address]: 455892597 Has never s moked or chewed tobacco 05/31/[address]: 204869571 Never drinks alco hol 05/31/2018 Has the patient ever used illegal drugs? 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 ICD-10: Z79.899 ICD-9: V58.69 04/25/2019 Inactive Type 2 diabetes mellitus wit hout complications ICD-10: E11.9 ICD-9: 250.00 10/03/2018 Inactive Wheezing ICD-10: R06.2 ICD-9: 786.07 08/08/2018 Inactive Abnormal urine finding ICD-10: R82.90 ICD-9: 791.9 09/24/2020 Resolved Abrasion of toe ICD-10: S90.416A ICD-9: 917.0 02/14/2020 Resolved Acute upper respiratory infe ction, unspecified ICD-10: J06.9 ICD-9: 465.9 09/04/2019 Resolved [place] [facility] ICD-10: H10.029 ICD-9: 372.03 12/29/2019 Resolved [...] Heartburn Relief (famotidine) 10 mg tablet RxNorm: 591899 Take 1 Tablet(s) Oral every morning 05/07/202020 Inactive omeprazole 20 mg capsule,delayed release RxNorm: 508381 1 Capsule(s) Oral every evening 04/03/20 21 2020 Inactive sertraline 100 mg tablet RxNorm: 833240 2 Tablet(s) Oral every day 03/13/20 21 2020 Inactive levothyroxine 50 mcg tablet RxNorm: 497536 TAKE (1) TABLET BY MOUTH DAILY 02/04/20 21 2020 Inactive metformin 500 mg tablet RxNorm: 279869 1 Tablet(s) Oral two times a day take with 500mg to equal 1000mg 01/14/20 21 2020 Inactive gabapentin 300 mg capsule RxNorm: 561777 TAKE 1 CAPSULE BY MOUTH THREE TIMES A DAY 01/14/20 21 2020 Inactive lisinopril 2.5 mg tablet RxNorm: 156935 TAKE 1 TABLET BY MOUTH DAILY 01/06/20 21 2020 Inactive gabapentin 300 mg capsule RxNorm: 927761 TAKE 1 CAPSULE BY MOUTH THREE TIMES A DAY 01/06/20 21 2020 Inactive Singulair 10 mg tablet RxNorm: 017501 TAKE (1) TABLET BY MOUTH DAILY 01/06/20 21 2020 Inactive metformin 1,000 mg tablet RxNorm: 080847 1 Tablet(s) Oral two times a day 01/06/20 21 2020 Inactive atorvastatin 40 mg tablet RxNorm: 062937 1 Tablet(s) Oral every day 12/06/192020 Inactive omeprazole 20 mg capsule,delayed release RxNorm: 180678 1 Capsule(s) Oral every evening 11/24/19 21 2020 Inactive famotidine 10 mg tablet RxNorm: 371946 1 Tablet(s) Oral every morning 11/24/192020 Inactive Alcohol Prep Pads RxNorm: 278451 USE EACH MORNING 10/14/19 21 2020 Inactive omeprazole 20 mg capsule,delayed release RxNorm: 575245 1 Capsule(s) Oral two times a day 10/13/19 21 2021 Inactive omeprazole 20 mg capsule,delayed release RxNorm: 455469 TAKE 1 CAPSULE BY MOUTH EVERY DAY 10/08/192021 Inactive Macrobid 100 mg capsule RxNorm: 297396 1 Capsule(s) Oral every 12 hours with food 10/01/202020 Inactive omeprazole 20 mg capsule,delayed release RxNorm: 519770 1 Capsule(s) Oral two times a day 09/24/20 20 2021 Inactive metformin 1,000 mg tablet RxNorm: 596478 1 Tablet(s) Oral two times a day 08/19/20 20 2020 Inactive start on September 11, 2020 metformin 500 mg tablet RxNorm: 899466 1 Tablet(s) Oral two times a day take with 500mg to equal 1000mg 08/19/202019 Inactive gabapentin 300 mg capsule RxNorm: 856880 TAKE 1 CAPSULE BY MOUTH THREE TIMES DAILY 07/11/20 20 2020 Inactive cetirizine 10 mg tablet RxNorm: 6098312 TAKE (1) TABLET BY MOUTH DAILY 07/11/20 20 2020 Inactive metformin 500 mg tablet RxNorm: 888815 1 Tablet(s) Oral two times a day 07/08/20 20 2019 Inactive loperamide 2 mg tablet RxNorm: 325332 1 Tablet(s) Oral as needed take one tablet after each loose stool, maximum of 8 tablets in 24 hours 06/24/202021 Inactive Sudafed 12 Hour 120 mg tablet,extended release RxNorm: 8326472 TAKE 1 TABLET BY MOUTH EVERY 12 HOURS NEEDED 06/11/20 20 2019 Inactive hydrochlorothiazide 25 mg tablet RxNorm: 952766 TAKE (1) TABLET BY MOUTH EVERY DAY 06/11/20 20 2019 Inactive omeprazole 20 mg capsule,delayed release RxNorm: 216258 TAKE 1 CAPSULE BY MOUTH EVERY DAY 05/14/202020 Inactive metformin 500 mg tablet RxNorm: 749721 1 Tablet(s) Oral every day 05/12/20 20 2019 Inactive True Metrix Glucose Test Strip RxNorm: 1 Test Strips Miscellaneous two times a day as needed 04/17/20 No Stop Date Active metformin 500 mg tablet RxNorm: 812926 1 Tablet(s) Oral every day 04/17/20 20 2019 Inactive diclofenac sodium 75 mg tablet,delayed release RxNorm: 513071 1 Tablet(s) PO BID 04/14/20 20 2021 Inactive This refill negates all other refills of this medication Sudafed 12 Hour 120 mg tablet,extended release RxNorm: 9817137 TAKE 1 TABLET BY MOUTH EVERY 12 HOURS NEEDED 03/14/20 20 2019 Inactive True Metrix Glucose Test Strip RxNorm: 1 Test Strips Miscellaneous every morning 03/13/20 20 2019 Inactive 100/container True Metrix Glucose Test Strip RxNorm: 1 Test Strips Miscellaneous QAM 02/22/20 20 2019 Inactive 100/container loperamide 2 mg tablet RxNorm: 975899 1 Tablet(s) Oral as needed take one tablet after each loose stool, maximum of 8 tablets in 24 hours 02/22/20 20 2019 Inactive cetirizine 10 mg tablet RxNorm: 1813449 1 Tablet(s) PO daily 01/17/20 20 2019 Inactive loperamide 2 mg tablet RxNorm: 904446 1 Tablet(s) Oral as needed take one tablet after each loose stool, maximum of 8 tablets in 24 hours 01/17/20 20 2019 Inactive quetiapine 100 mg tablet RxNorm: 305547 1 Tablet(s) Oral every night at bedtime 01/17/20 20 2019 Inactive levothyroxine 50 mcg tablet RxNorm: 790802 1 Tablet(s) PO daily 01/17/20 20 2020 Inactive gabapentin 300 mg capsule RxNorm: 323548 1 Capsule(s) PO TID 01/17/20 20 2019 Inactive levothyroxine 50 mcg tablet RxNorm: 936610 1 Tablet(s) PO daily 01/15/20 20 2019 Inactive lisinopril 2.5 mg tablet RxNorm: 447952 1 Tablet(s) PO daily 01/15/20 20 2020 Inactive gabapentin 300 mg capsule RxNorm: 315075 1 Capsule(s) PO TID 01/15/20 20 2019 Inactive cetirizine 10 mg tablet RxNorm: 4426287 1 Tablet(s) PO daily 01/15/20 20 2019 Inactive Singulair 10 mg tablet RxNorm: 352855 1 Tablet(s) PO daily 01/15/20 20 2020 Inactive gentamicin 0.3 % eye drops RxNorm: 291715 1 Drop(s) ophthalmic (eye) four times a day 12/29/19 20 2019 Inactive gentamicin 0.3 % eye drops RxNorm: 906534 1 Drop(s) ophthalmic (eye) four times a day 12/29/19 20 2019 Inactive gentamicin 0.3 % eye drops RxNorm: 204235 1 Drop(s) ophthalmic (eye) four times a day 12/29/19 20 2019 Inactive hydrochlorothiazide 25 mg tablet RxNorm: 216665 1 Tablet(s) Oral every day 12/21/19 20 2019 Inactive Sudafed 12 Hour 120 mg tablet,extended release RxNorm: 5240109 TAKE (1) TABLET BY MOUTH EVERY 12 HOURS NEEDED 12/21/19 20 2019 Inactive loperamide 2 mg tablet RxNorm: 534159 1 Tablet(s) Oral as needed take one tablet after each loose stool, maximum of 8 tablets in 24 hours 12/11/19 20 2019 Inactive loperamide 2 mg tablet RxNorm: 444226 1 Tablet(s) Oral as needed take one tablet after each loose stool, maximum of 8 tablets in 24 hours 12/11/19 20 2019 Inactive atorvastatin 40 mg tablet RxNorm: 464080 1 Tablet(s) Oral every day 11/29/19 20 2020 Inactive quetiapine 100 mg tablet RxNorm: 917326 1 Tablet(s) Oral every night at bedtime 11/28/19 20 2019 Inactive sertraline 100 mg tablet RxNorm: 264906 1 Tablet(s) Oral 11/28/19 20 2019 Inactive omeprazole 20 mg capsule,delayed release RxNorm: 586890 1 Capsule(s) Oral every day 11/20/19 20 2019 Inactive amoxicillin 250 mg capsule RxNorm: 607929 1 Capsule(s) Oral three times a day 11/07/19 20 2019 Inactive multivitamin with iron-mineral tablet RxNorm: 1 Tablet(s) Oral every day 10/29/19 20 2021 Inactive cetirizine 10 mg tablet RxNorm: 3538207 1 Tablet(s) PO daily 10/20/19 20 2019 Inactive This refill negates all other refills of this medication. Please do not auto refill Singulair 10 mg tablet RxNorm: 836335 1 Tablet(s) PO daily 10/20/19 20 2019 Inactive This refill negates all other refills of this medication gabapentin 300 mg capsule RxNorm: 401176 1 Capsule(s) PO TID 10/20/192019 Inactive lisinopril 2.5 mg tablet RxNorm: 001049 1 Tablet(s) PO daily 10/20/192019 Inactive levothyroxine 50 mcg tablet RxNorm: 483055 1 Tablet(s) PO daily 10/20/192019 Inactive This refill negates all other refills of this medication fenugreek seed extract 500 mg capsule RxNorm: 1 Capsule(s) Oral three times a day 10/17/19 20 2021 Inactive hydrochlorothiazide 25 mg tablet RxNorm: 095430 1 Tablet(s) Oral every day 10/17/19 20 2019 Inactive Alcohol Prep Pads RxNorm: 511639 1 Patch TOP QAM 10/16/19 20 2020 Inactive loperamide 2 mg tablet RxNorm: 179110 1 Tablet(s) Oral as needed take one [...] 2019 Inactive hydrochlorothiazide 25 mg tablet RxNorm: 544794 1 Tablet(s) Oral every day 09/19/20 19 2019 Inactive Sudafed 12 Hour 120 mg tablet,extended release RxNorm: 2837342 1 Tablet(s) Oral every 12 hours as needed 09/11/20 19 2018 Inactive omeprazole 20 mg capsule,delayed release RxNorm: 212505 1 Capsule(s) Oral every day 09/07/20 19 2019 Inactive Sudafed 12 Hour 120 mg tablet,extended release RxNorm: 1080507 1 Tablet(s) Oral every 12 hours as needed 09/04/20 19 2018 Inactive pantoprazole 40 mg tablet,delayed release RxNorm: 829625 1 Tablet(s) Oral every day 08/24/202018 Inactive discontinue any other H2Blkr. and PPI albuterol sulfate 2.5 mg/3 mL (0.083 %) solution for nebulization RxNorm: 412111 1 Vial Inhalation every four hours as needed as needed for dyspnea 08/17/202019 Inactive 60/box. This refill negates all other refills of this medication. Please do not fill early. Please do not auto refill. Symbicort 160 mcg-4.5 mcg/actuation HFA aerosol inhaler RxNorm: 7604383 2 Puff(s) INH BID 08/17/20 19 No Stop Date Active Alcohol Prep Pads RxNorm: 455979 1 Patch TOP QAM 08/17/20 19 2019 Inactive Ventolin HFA 90 mcg/actuation aerosol inhaler RxNorm: 965561 2 Puff(s) INH QID 08/09/20 19 2019 Inactive Please do not fill early. Please do not auto refill. This refill negates all other refills of this medication True Metrix Glucose Test Strip RxNorm: 1 Test Strips Miscellaneous QAM 08/09/20 19 2019 Inactive 100/container atorvastatin 40 mg tablet RxNorm: 776418 1 Tablet(s) Oral every day 07/04/20 19 2019 Inactive levmetamfetamine 50 mg nasal inhaler RxNorm: 1 Unit(s) NASAL Q3-4H Do not use more than every 3 hours or 8 times/24hours 06/26/20 19 2021 Inactive Please do not auto refill. This refill negates all other refills of this medication buspirone 7.5 mg tablet RxNorm: 700840 1 Tablet(s) PO BID 06/26/20 19 2020 Inactive This refill negates all other refills of this medication hydrochlorothiazide 12.5 mg tablet RxNorm: 592407 1 Tablet(s) PO QAM 06/26/20 19 2019 Inactive Ventolin HFA 90 mcg/actuation aerosol inhaler RxNorm: 895700 2 Puff(s) INH QID 06/26/20 19 2018 Inactive Please do not fill early. Please do not auto refill. This refill negates all other refills of this medication Singulair 10 mg tablet RxNorm: 484600 1 Tablet(s) PO daily 06/26/20 19 2019 Inactive This refill negates all other refills of this medication cetirizine 10 mg tablet RxNorm: 1858566 1 Tablet(s) PO daily 06/26/20 19 2019 Inactive This refill negates all other refills of this medication. Please do not auto refill levothyroxine 50 mcg tablet RxNorm: 135119 1 Tablet(s) PO daily 06/26/20 19 2019 Inactive This refill negates all other refills of this medication diclofenac sodium 75 mg tablet,delayed release RxNorm: 396077 1 Tablet(s) PO BID 06/26/20 19 2019 Inactive This refill negates all other refills of this medication ranitidine 150 mg tablet RxNorm: 115496 1 Tablet(s) PO BID 06/26/20 19 2018 Inactive This refill negates all other refills of this medication Calcium 600-D3 Plus (mag-zinc) 600 mg calcium-800 unit-50 mg tablet RxNorm: 1 Tablet(s) PO daily take an additonal tablet for itching. 06/26/20 19 2018 Inactive This refill negates all other refills of this medication albuterol sulfate 2.5 mg/3 mL (0.083 %) solution for nebulization RxNorm: 204287 1 Vial INH QID 06/26/20 19 2018 Inactive 60/box. This refill negates all other refills of this medication. Please do not fill early. Please do not auto refill. lisinopril 2.5 mg tablet RxNorm: 753024 1 Tablet(s) PO daily 06/21/20 19 2019 Inactive gabapentin 300 mg capsule RxNorm: 730891 1 Capsule(s) PO TID 06/21/20 19 2019 Inactive atorvastatin 20 mg tablet RxNorm: 310364 1 Tablet(s) PO QHS 06/07/20 19 2018 Inactive This refill negates all other refills of this medication TRUEplus Lancets 30 gauge RxNorm: 1 Lancets Miscellaneous QAM 05/29/20 19 2018 Inactive 100/box gabapentin 300 mg capsule RxNorm: 063884 1 Capsule(s) PO TID 05/03/20 19 2018 Inactive Flnickolas Complete (iron) 18 mg iron chewable tablet RxNorm: 1 Tablet(s) PO daily 04/04/20 19 2021 Inactive This refill negates all other refills of this medication gabapentin 300 mg capsule RxNorm: 066705 1 Capsule(s) PO TID as needed 02/01/20 19 2018 Inactive True Metrix Glucose Test Strip RxNorm: 1 Test Strips Miscellaneous QAM 02/01/20 19 2018 Inactive 100/container Alcohol Prep Pads RxNorm: 147679 1 Patch TOP QAM 02/01/20 19 2018 Inactive TRUEplus Lancets 30 gauge RxNorm: 1 Lancets Miscellaneous QAM 02/01/20 19 2018 Inactive 100/box lisinopril 2.5 mg tablet RxNorm: 465921 1 Tablet(s) PO daily 12/28/19 19 2018 Inactive ranitidine 150 mg tablet RxNorm: 191425 1 Tablet(s) PO BID 10/21/19 19 2018 Inactive This refill negates all other refills of this medication albuterol sulfate 2.5 mg/3 mL (0.083 %) solution for nebulization RxNorm: 452146 1 Vial INH QID 10/21/19 19 2018 [...] this medication gabapentin 300 mg capsule RxNorm: 742445 1 Capsule(s) PO TID as needed 10/21/19 19 2018 Inactive atorvastatin 20 mg tablet RxNorm: 368697 1 Tablet(s) PO QHS 10/21/19 19 2018 Inactive This refill negates all other refills of this medication trazodone 50 mg tablet RxNorm: 462036 1 Tablet(s) PO QHS 10/21/192018 Inactive This refill negates all other refills of this medication Ventolin HFA 90 mcg/actuation aerosol inhaler RxNorm: 388244 2 Puff(s) INH QID 10/21/192018 Inactive Please do not fill early. Please do not auto refill. This refill negates all other refills of this medication Calcium 600-D3 Plus 600 mg calcium-800 unit-50 mg tablet RxNorm: 1 Tablet(s) PO daily take an additonal tablet for itching. 10/21/192018 Inactive This refill negates all other refills of this medication Singulair 10 mg tablet RxNorm: 430516 1 Tablet(s) PO daily 10/21/19 19 2018 Inactive This refill negates all other refills of this medication buspirone 7.5 mg tablet RxNorm: 300025 1 Tablet(s) PO BID 10/21/19 2018 Inactive This refill negates all other refills of this medication diclofenac sodium 75 mg tablet,delayed release RxNorm: 133276 1 Tablet(s) PO BID 10/21/19 19 2018 Inactive This refill negates all other refills of this medication hydrochlorothiazide 12.5 mg tablet RxNorm: 281007 1 Tablet(s) PO QAM 10/21/19 19 2018 Inactive metoprolol succinate ER 50 mg tablet,extended release 24 hr RxNorm: 191638 1 Tablet(s) PO daily 10/21/19 19 2018 Inactive This refill negates all other refills of this medication levothyroxine 50 mcg tablet RxNorm: 793040 1 Tablet(s) PO daily 10/21/19 19 2018 Inactive This refill negates all other refills of this medication cetirizine 10 mg tablet RxNorm: 3765687 1 Tablet(s) PO daily 10/21/192018 Inactive This refill negates all other refills of this medication. Please do not auto refill Flintstones Complete (iron) 18 mg iron chewable tablet RxNorm: 1 Tablet(s) PO daily 10/21/192018 Inactive This refill negates all other refills of this medication buspirone 7.5 mg tablet RxNorm: 321935 1 Tablet(s) PO BID 10/12/192018 Inactive cetirizine 10 mg tablet RxNorm: 9620798 1 Tablet(s) PO daily 09/28/202018 Inactive Guaiasorb DM 10 mg-100 mg/5 mL oral liquid RxNorm: 546579 10 Milliliter(s) PO As needed every 4 hr 09/24/20 18 2018 Inactive Vicks Vaporub 4.7 %-1.2 %-2.6 % topical ointment RxNorm: 5053441 1 Application TOP TID 09/24/20 18 2018 Inactive levmetamfetamine 50 mg nasal inhaler RxNorm: 1 Unit(s) NASAL Q3-4H 09/24/20 18 2017 Inactive sertraline 50 mg tablet RxNorm: 606949 1 Tablet(s) PO daily 09/09/20 18 2018 Inactive Please note dose trazodone 50 mg tablet RxNorm: 289604 1 Tablet(s) PO QHS 09/06/20 18 2018 Inactive sertraline 50 mg tablet RxNorm: 082055 1 Tablet(s) PO daily 09/06/20 18 2017 Inactive amoxicillin 500 mg tablet RxNorm: 711832 1 Tablet(s) PO Q12H 08/31/20 18 2017 Inactive albuterol sulfate 2.5 mg/3 mL (0.083 %) solution for nebulization RxNorm: 216701 1 Vial INH QID 08/10/20 18 2018 Inactive 60/box. Please do not fill early. Please do not auto refill. Prozac 10 mg capsule RxNorm: 925607 1 Capsule(s) PO daily 08/09/20 18 2017 Inactive buspirone 7.5 mg tablet RxNorm: 573033 1 Tablet(s) PO BID 08/09/20 18 2018 Inactive gabapentin 300 mg capsule RxNorm: 908780 1 Capsule(s) PO TID as needed 08/01/20 18 2018 Inactive hydrochlorothiazide 12.5 mg tablet RxNorm: 478697 1 Tablet(s) PO QAM 08/01/20 18 2018 Inactive ranitidine 150 mg tablet RxNorm: 907578 1 Tablet(s) PO BID 08/01/20 18 2018 Inactive Macrobid 100 mg capsule RxNorm: 450958 1 Capsule(s) PO Q12H 06/21/20 18 2017 Inactive Singulair 10 mg tablet RxNorm: 334812 1 Tablet(s) PO daily 06/14/20 18 2018 Inactive Ventolin HFA 90 mcg/actuation aerosol inhaler RxNorm: 6396432 2 Puff(s) INH QID 06/14/20 18 2018 Inactive Singulair 10 mg tablet RxNorm: 592776 1 Tablet(s) PO daily 06/14/20 18 2017 Inactive buspirone 7.5 mg tablet RxNorm: 145744 1 Tablet(s) PO BID 06/14/20 18 2017 Inactive Prozac 10 mg capsule RxNorm: 100912 1 Capsule(s) PO daily 06/14/20 18 2017 Inactive Neilmed Pediatric Sinus Rinse Refill packet RxNorm: 1 Unit Dose NASAL PRN 05/31/20 18 2021 Inactive diclofenac sodium 75 mg tablet,delayed release RxNorm: 883179 1 Tablet(s) PO BID 05/31/20 18 2017 Inactive lisinopril 2.5 mg tablet RxNorm: 555739 1 Tablet(s) PO daily 05/31/20 18 2017 Inactive metoprolol succinate ER 50 mg tablet,extended release 24 hr RxNorm: 616250 1 Tablet(s) PO daily 05/31/20 18 2017 Inactive levothyroxine 50 mcg tablet RxNorm: 512878 1 Tablet(s) PO daily 05/31/20 18 2017 Inactive TRUEplus Lancets 30 gauge RxNorm: 1 Lancets Miscellaneous QAM 05/31/20 18 2017 Inactive 100/box Ventolin HFA 90 mcg/actuation aerosol inhaler RxNorm: 609810 2 Puff(s) INH QID 05/31/20 18 2017 Inactive Aleve 220 mg capsule RxNorm: 6263366 1 Capsule(s) PO BID 05/31/20 18 2018 Inactive ranitidine 150 mg tablet RxNorm: 894055 1 Tablet(s) PO BID 05/31/20 18 2017 Inactive gabapentin 300 mg capsule RxNorm: 931674 1 Capsule(s) PO TID as needed 05/31/20 18 2017 Inactive atorvastatin 20 mg tablet RxNorm: 887046 1 Tablet(s) PO QHS 05/31/20 18 2017 Inactive True Metrix Glucose Test Strip RxNorm: 1 Test Strips Miscellaneous QAM 05/31/20 18 2017 Inactive 50/container Calcium 600-D3 Plus 600 mg calcium-800 unit-50 mg tablet RxNorm: 1 Tablet(s) PO daily take an additonal tablet for itching. 05/31/20 18 2017 Inactive hydrochlorothiazide 12.5 mg tablet RxNorm: 300274 1 Tablet(s) PO QAM 05/31/20 18 2017 Inactive Flintstones Complete (iron) 18 mg iron chewable tablet RxNorm: 1 Tablet(s) PO daily 05/31/20 18 2017 Inactive d-mannose oral powder RxNorm: PO 18 2021 Inactive True Metrix Glucose Meter RxNorm: miscellaneous 08/17/20 19 2018 Inactive sertraline 50 mg tablet RxNorm: 068890 1 Tablet(s) PO daily 11/28/19 20 2019 Inactive loperamide 2 mg tablet RxNorm: 505922 oral 09/29/20 19 2018 Inactive Symbicort 160 mcg-4.5 mcg/actuation HFA aerosol inhaler RxNorm: 6723485 2 Puff(s) INH BID 08/17/202018 Inactive Medication Administered No Medication Administered data Procedures Procedure Codes Date Hypertension CPT-4: HTN 04/01/2021 Tobacco Assessment/Screening CPT-4: TCA 08/2021 Patient Health Questionnaire CPT-4: DPHQ 08/2021 Mini Mental State Exam CPT-4: DMMA Annual Wellness Visit (Subsequent Visit) CPT-4: G0439 01/13/2021 Advanced Care Planning CPT-4: VACP Fall Risk Assessment SNOMED CT: 56234105 4 CPT-4: DFRA 01/13/2021 Laurens Fany Assessment CPT-4: DSWA 12/01 Urinalysis, dip stick CPT-4: 78685 09/24/2020 Patient Health Questionnaire CPT-4: DPHQ Electrocardiogram CPT-4: 70960 05/14/2020 Tobacco Assessment/Screening CPT-4: TCA Fall Risk Assessment SNOMED CT: 27582805 4 CPT-4: DFRA 01/01/2020 Functional Assessment CPT-4: DFA 01/01/2020 Laurens Fany Assessment CPT-4: DSWA 11/04 Patient Health Questionnaire CPT-4: DPHQ Laurens Fany Assessment CPT-4: DSWA 10/03 Hypertension CPT-4: HTN 10/17/2019 Fall Risk Assessment SNOMED CT: 74550698 4 CPT-4: DFRA 09/19/2019 Functional Assessment CPT-4: DFA 09/19/2019 Urinalysis, dip stick CPT-4: 12870 06/21/2019 Tobacco Assessment/Screening CPT-4: TCA Patient Health Questionnaire CPT-4: DPHQ AHA/REBECCA Classification Assessment CPT-4: DAHA 04/25/2019 Controlled Substance Report CPT-4: CTRSU 04/03 Urinalysis, dip stick CPT-4: 91847 03/28/2019 Urinalysis, dip stick CPT-4: 26901 03/28/2019 M4E-Djbkslcghnwkisq CPT-4: 54732 Unknown X7O-Lgkvdgkrminlegd CPT-4: 83610 Unknown T0G-Tqcmvuvltekmhqo CPT-4: 12875 Unknown S9S-Kuwjdsbktcaywpf CPT-4: 93053 Unknown T4O-Qfvyoprghiiarju CPT-4: 17720 Unknown H8C-Zntbamogswgmwdv CPT-4: 42430 Unknown Z8Z-Xllcwibepepinhx CPT-4: 00364 Unknown Gynecology Referral SNOMED CT: 464919782 CPT-4: R14 Unknown Reason For Visit No Reason For Visit data Plan of Care Planned Activity Notes Codes Status Date Referral: Pending Gynecology Referral Information Referral Processed Referral: Pending Pulmonolog y Referral Information Referral Processed Referral: Pending Psychiatry Referral Information Referral Initiated Referral: Pending Respirator y Services Referral Information Referral Initiated Referral: Pending Ophthalmol ogy Referral Information Referral Initiated Referral: [facility] WPtel: [address] [place] [address] [address] [place] [address] [place] [employer] placed a call out to the patient to notify her that it has been recommended that she be seen by a urologist. Patient agreed to be seen, does not have a provider of choice and no transportation issues. [employer] faxed referral and clinical notes to [facility] in [place], [place] near the patient's home. Patient to [...] and prefers a provider in the [place] or [place] area. [employer] placed a call out to everyone listed in the area and the only location that was able to accept the patient's insurance was [place] [facility] [place] [address] and spoke with Maylin. Maylin asked that the patient's referral, face sheet and visit notes be faxed to . [employer] faxed over requested documents. Patient appointment confirmation letter generated and mailed to her home address. Patient to call to schedule an appointment. Processed Referral: [facility] WPtel: [address] [place] [address] Patient notified that it has been advised that she be seen by Neurology. Patient agreed to be seen and prefers to be seen by a provider in the [place], [place] area. Patient denies any concerns with transportation, and prefers to schedule her own appointment. [employer] placed a call out to [facility] [...]
--- OUTSIDE RECORDS SUMMARY | 2023-12-07 02:16 | XMS_ITS | CCD ---
Author Name Leena Culver NP Address [address] [place] [address] [address] [place] [address] Phone Organization [email or web address] Phone Care Team Providers Care Insert Operator Name Role Phone Anna Culver NP Primary Care Provider Unav ailable Unavailable Chronic Care Management Unavaila ble Summary Purpose DataExchange Insurance Providers Payer name Policy type / Coverage type Covered libertarian ID Effective Begin Date Effective End Date SUKI MAYO [id number] Unknown Unknown Family history Mother Diagnosis Age [...] Unknown Disability 05/31/[address]: 023274276 Has never s moked or chewed tobacco 05/31/[address]: 197052522 Never drinks alco hol 05/31/2018 Has the patient ever used illegal drugs? 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 ICD-10: Z79.899 ICD-9: V58.69 04/25/2019 Inactive Type 2 diabetes mellitus wit hout complications ICD-10: E11.9 ICD-9: 250.00 10/03/2018 Inactive Wheezing ICD-10: R06.2 ICD-9: 786.07 08/08/2018 Inactive Abnormal urine finding ICD-10: R82.90 ICD-9: 791.9 09/24/2020 Resolved Abrasion of toe ICD-10: S90.416A ICD-9: 917.0 02/14/2020 Resolved Acute upper respiratory infe ction, unspecified ICD-10: J06.9 ICD-9: 465.9 09/04/2019 Resolved [place] eye ICD-10: H10.029 ICD-9: 372.03 12/29/2019 Resolved [...] unspecified ICD-10: R60.9 ICD-9: 782.3 07/11/2018 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-inflammatories (NSAID) ICD-10: Z79.1 ICD-9: V58.64 06/13/2018 Active Medications Medication Codes Instructions Start Date Stop Date Status Fill Instructions sertraline 100 mg tablet RxNorm: 820938 2 Tablet(s) Oral every day 03/13/20 21 2020 Inactive levothyroxine 50 mcg tablet RxNorm: 441449 TAKE (1) TABLET BY MOUTH DAILY 02/04/20 21 2020 Inactive metformin 500 mg tablet RxNorm: 267193 1 Tablet(s) Oral two times a day take with 500mg to equal 1000mg 01/14/20 21 2020 Inactive gabapentin 300 mg capsule RxNorm: 123784 TAKE 1 CAPSULE BY MOUTH THREE TIMES A DAY 01/14/20 21 2020 Inactive lisinopril 2.5 mg tablet RxNorm: 842063 TAKE 1 TABLET BY MOUTH DAILY 01/06/20 21 2020 Inactive gabapentin 300 mg capsule RxNorm: 344963 TAKE 1 CAPSULE BY MOUTH THREE TIMES A DAY 01/06/20 21 2020 Inactive Singulair 10 mg tablet RxNorm: 806597 TAKE (1) TABLET BY MOUTH DAILY 01/06/20 21 2020 Inactive metformin 1,000 mg tablet RxNorm: 678236 1 Tablet(s) Oral two times a day 01/06/20 21 2020 Inactive atorvastatin 40 mg tablet RxNorm: 618967 1 Tablet(s) Oral every day 12/06/19 21 2020 Inactive omeprazole 20 mg capsule,delayed release RxNorm: 069903 1 Capsule(s) Oral every evening 11/24/19 21 2020 Inactive famotidine 10 mg tablet RxNorm: 936832 1 Tablet(s) Oral every morning 11/24/19 21 2020 Inactive Alcohol Prep Pads RxNorm: 668517 USE EACH MORNING 10/14/19 21 2020 Inactive omeprazole 20 mg capsule,delayed release RxNorm: 980826 1 Capsule(s) Oral two times a day 10/13/19 21 2021 Inactive omeprazole 20 mg capsule,delayed release RxNorm: 467759 TAKE 1 CAPSULE BY MOUTH EVERY DAY 10/08/19 21 2021 Inactive Macrobid 100 mg capsule RxNorm: 436768 1 Capsule(s) Oral every 12 hours with food 10/01/20 20 2020 Inactive omeprazole 20 mg capsule,delayed release RxNorm: 894883 1 Capsule(s) Oral two times a day 09/24/202021 Inactive metformin 1,000 mg tablet RxNorm: 939307 1 Tablet(s) Oral two times a day 08/19/20 20 2020 Inactive start on September 11, 2020 metformin 500 mg tablet RxNorm: 594025 1 Tablet(s) Oral two times a day take with 500mg to equal 1000mg 08/19/202019 Inactive gabapentin 300 mg capsule RxNorm: 094975 TAKE 1 CAPSULE BY MOUTH THREE TIMES DAILY 07/11/20 20 2020 Inactive cetirizine 10 mg tablet RxNorm: 3196730 TAKE (1) TABLET BY MOUTH DAILY 07/11/20 20 2020 Inactive metformin 500 mg tablet RxNorm: 908410 1 Tablet(s) Oral two times a day 07/08/20 20 2019 Inactive loperamide 2 mg tablet RxNorm: 156852 1 Tablet(s) Oral as needed take one tablet after each loose stool, maximum of 8 tablets in 24 hours 06/24/20 20 2021 Inactive Sudafed 12 Hour 120 mg tablet,extended release RxNorm: 4300258 TAKE 1 TABLET BY MOUTH EVERY 12 HOURS NEEDED 06/11/20 20 2019 Inactive hydrochlorothiazide 25 mg tablet RxNorm: 171289 TAKE (1) TABLET BY MOUTH EVERY DAY 06/11/20 20 2019 Inactive omeprazole 20 mg capsule,delayed release RxNorm: 424609 TAKE 1 CAPSULE BY MOUTH EVERY DAY 05/14/202020 Inactive metformin 500 mg tablet RxNorm: 199040 1 Tablet(s) Oral every day 05/12/20 20 2019 Inactive True Metrix Glucose Test Strip RxNorm: 1 Test Strips Miscellaneous two times a day as needed 04/17/20 No Stop Date Active metformin 500 mg tablet RxNorm: 187108 1 Tablet(s) Oral every day 04/17/20 20 2019 Inactive diclofenac sodium 75 mg tablet,delayed release RxNorm: 801893 1 Tablet(s) PO BID 04/14/20 20 2021 Inactive This refill negates all other refills of this medication Sudafed 12 Hour 120 mg tablet,extended release RxNorm: 1953259 TAKE 1 TABLET BY MOUTH EVERY 12 HOURS NEEDED 03/14/20 20 2019 Inactive True Metrix Glucose Test Strip RxNorm: 1 Test Strips Miscellaneous every morning 03/13/20 20 2019 Inactive 100/container True Metrix Glucose Test Strip RxNorm: 1 Test Strips Miscellaneous QAM 02/22/20 20 2019 Inactive 100/container loperamide 2 mg tablet RxNorm: 265699 1 Tablet(s) Oral as needed take one tablet after each loose stool, maximum of 8 tablets in 24 hours 02/22/20 20 2019 Inactive cetirizine 10 mg tablet RxNorm: 6911395 1 Tablet(s) PO daily 01/17/20 20 2019 Inactive loperamide 2 mg tablet RxNorm: 039742 1 Tablet(s) Oral as needed take one tablet after each loose stool, maximum of 8 tablets in 24 hours 01/17/20 20 2019 Inactive quetiapine 100 mg tablet RxNorm: 203461 1 Tablet(s) Oral every night at bedtime 01/17/20 20 2019 Inactive levothyroxine 50 mcg tablet RxNorm: 438355 1 Tablet(s) PO daily 01/17/20 20 2020 Inactive gabapentin 300 mg capsule RxNorm: 919899 1 Capsule(s) PO TID 01/17/20 20 2019 Inactive levothyroxine 50 mcg tablet RxNorm: 687867 1 Tablet(s) PO daily 01/15/20 20 2019 Inactive lisinopril 2.5 mg tablet RxNorm: 821157 1 Tablet(s) PO daily 01/15/20 20 2020 Inactive gabapentin 300 mg capsule RxNorm: 628515 1 Capsule(s) PO TID 01/15/20 20 2019 Inactive cetirizine 10 mg tablet RxNorm: 9386065 1 Tablet(s) PO daily 01/15/20 20 2019 Inactive Singulair 10 mg tablet RxNorm: 775198 1 Tablet(s) PO daily 01/15/20 20 2020 Inactive gentamicin 0.3 % eye drops RxNorm: 315441 1 Drop(s) ophthalmic (eye) four times a day 12/29/19 20 2019 Inactive gentamicin 0.3 % eye drops RxNorm: 356613 1 Drop(s) ophthalmic (eye) four times a day 12/29/19 20 2019 Inactive gentamicin 0.3 % eye drops RxNorm: 601143 1 Drop(s) ophthalmic (eye) four times a day 12/29/19 20 2019 Inactive hydrochlorothiazide 25 mg tablet RxNorm: 170599 1 Tablet(s) Oral every day 12/21/19 20 2019 Inactive Sudafed 12 Hour 120 mg tablet,extended release RxNorm: 5794507 TAKE (1) TABLET BY MOUTH EVERY 12 HOURS NEEDED 12/21/19 20 2019 Inactive loperamide 2 mg tablet RxNorm: 395952 1 Tablet(s) Oral as needed take one tablet after each loose stool, maximum of 8 tablets in 24 hours 12/11/19 20 2019 Inactive loperamide 2 mg tablet RxNorm: 487771 1 Tablet(s) Oral as needed take one tablet after each loose stool, maximum of 8 tablets in 24 hours 12/11/19 20 2019 Inactive atorvastatin 40 mg tablet RxNorm: 557001 1 Tablet(s) Oral every day 11/29/19 20 2020 Inactive quetiapine 100 mg tablet RxNorm: 133330 1 Tablet(s) Oral every night at bedtime 11/28/19 20 2019 Inactive sertraline 100 mg tablet RxNorm: 912954 1 Tablet(s) Oral 11/28/19 20 2019 Inactive omeprazole 20 mg capsule,delayed release RxNorm: 834630 1 Capsule(s) Oral every day 11/20/19 20 2019 Inactive amoxicillin 250 mg capsule RxNorm: 121587 1 Capsule(s) Oral three times a day 11/07/19 20 2019 Inactive multivitamin with iron-mineral tablet RxNorm: 1 Tablet(s) Oral every day 01/2021 Inactive cetirizine 10 mg tablet RxNorm: 8775130 1 Tablet(s) PO daily 10/20/19 20 2019 Inactive This refill negates all other refills of this medication. Please do not auto refill Singulair 10 mg tablet RxNorm: 256901 1 Tablet(s) PO daily 10/20/19 20 2019 Inactive This refill negates all other refills of this medication gabapentin 300 mg capsule RxNorm: 187823 1 Capsule(s) PO TID 10/20/19 20 2019 Inactive lisinopril 2.5 mg tablet RxNorm: 513215 1 Tablet(s) PO daily 10/20/192019 Inactive levothyroxine 50 mcg tablet RxNorm: 767911 1 Tablet(s) PO daily 10/20/192019 Inactive This refill negates all other refills of this medication fenugreek seed extract 500 mg capsule RxNorm: 1 Capsule(s) Oral three times a day 10/17/19 20 2021 Inactive hydrochlorothiazide 25 mg tablet RxNorm: 171914 1 Tablet(s) Oral every day 10/17/19 20 2019 Inactive Alcohol Prep Pads RxNorm: 723375 1 Patch TOP QAM 10/16/19 20 2020 Inactive loperamide 2 mg tablet RxNorm: 356609 1 Tablet(s) Oral as needed take one [...] 2019 Inactive hydrochlorothiazide 25 mg tablet RxNorm: 315133 1 Tablet(s) Oral every day 09/19/20 19 2019 Inactive Sudafed 12 Hour 120 mg tablet,extended release RxNorm: 5778299 1 Tablet(s) Oral every 12 hours as needed 09/11/20 19 2018 Inactive omeprazole 20 mg capsule,delayed release RxNorm: 114614 1 Capsule(s) Oral every day 09/07/20 19 2019 Inactive Sudafed 12 Hour 120 mg tablet,extended release RxNorm: 1804006 1 Tablet(s) Oral every 12 hours as needed 09/04/20 19 2018 Inactive pantoprazole 40 mg tablet,delayed release RxNorm: 605341 1 Tablet(s) Oral every day 08/24/20 19 2018 Inactive discontinue any other H2Blkr. and PPI albuterol sulfate 2.5 mg/3 mL (0.083 %) solution for nebulization RxNorm: 775974 1 Vial Inhalation every four hours as needed as needed for dyspnea 08/17/202019 Inactive 60/box. This refill negates all other refills of this medication. Please do not fill early. Please do not auto refill. Symbicort 160 mcg-4.5 mcg/actuation HFA aerosol inhaler RxNorm: 9405864 2 Puff(s) INH BID 08/17/20 19 No Stop Date Active Alcohol Prep Pads RxNorm: 560460 1 Patch TOP QAM 08/17/20 19 2019 Inactive Ventolin HFA 90 mcg/actuation aerosol inhaler RxNorm: 663583 2 Puff(s) INH QID 08/09/20 19 2019 Inactive Please do not fill early. Please do not auto refill. This refill negates all other refills of this medication True Metrix Glucose Test Strip RxNorm: 1 Test Strips Miscellaneous QAM 08/09/20 19 2019 Inactive 100/container atorvastatin 40 mg tablet RxNorm: 186299 1 Tablet(s) Oral every day 07/04/20 19 2019 Inactive levmetamfetamine 50 mg nasal inhaler RxNorm: 1 Unit(s) NASAL Q3-4H Do not use more than every 3 hours or 8 times/24hours 06/26/20 19 2021 Inactive Please do not auto refill. This refill negates all other refills of this medication buspirone 7.5 mg tablet RxNorm: 269189 1 Tablet(s) PO BID 06/26/20 19 2020 Inactive This refill negates all other refills of this medication hydrochlorothiazide 12.5 mg tablet RxNorm: 407112 1 Tablet(s) PO QAM 06/26/20 19 2019 Inactive Ventolin HFA 90 mcg/actuation aerosol inhaler RxNorm: 108509 2 Puff(s) INH QID 06/26/20 19 2018 Inactive Please do not fill early. Please do not auto refill. This refill negates all other refills of this medication Singulair 10 mg tablet RxNorm: 314179 1 Tablet(s) PO daily 06/26/20 19 2019 Inactive This refill negates all other refills of this medication cetirizine 10 mg tablet RxNorm: 0659961 1 Tablet(s) PO daily 06/26/20 19 2019 Inactive This refill negates all other refills of this medication. Please do not auto refill levothyroxine 50 mcg tablet RxNorm: 736026 1 Tablet(s) PO daily 06/26/20 19 2019 Inactive This refill negates all other refills of this medication diclofenac sodium 75 mg tablet,delayed release RxNorm: 628908 1 Tablet(s) PO BID 06/26/20 19 2019 Inactive This refill negates all other refills of this medication ranitidine 150 mg tablet RxNorm: 547373 1 Tablet(s) PO BID 06/26/20 19 2018 Inactive This refill negates all other refills of this medication Calcium 600-D3 Plus (mag-zinc) 600 mg calcium-800 unit-50 mg tablet RxNorm: 1 Tablet(s) PO daily take an additonal tablet for itching. 06/26/20 19 2018 Inactive This refill negates all other refills of this medication albuterol sulfate 2.5 mg/3 mL (0.083 %) solution for nebulization RxNorm: 541634 1 Vial INH QID 06/26/20 19 2018 Inactive 60/box. This refill negates all other refills of this medication. Please do not fill early. Please do not auto refill. lisinopril 2.5 mg tablet RxNorm: 736979 1 Tablet(s) PO daily 06/21/20 19 2019 Inactive gabapentin 300 mg capsule RxNorm: 209812 1 Capsule(s) PO TID 06/21/20 19 2019 Inactive atorvastatin 20 mg tablet RxNorm: 763058 1 Tablet(s) PO QHS 06/07/20 19 2018 Inactive This refill negates all other refills of this medication TRUEplus Lancets 30 gauge RxNorm: 1 Lancets Miscellaneous QAM 05/29/20 19 2018 Inactive 100/box gabapentin 300 mg capsule RxNorm: 954796 1 Capsule(s) PO TID 05/03/20 19 2018 Inactive Flintssaranes Complete (iron) 18 mg iron chewable tablet RxNorm: 1 Tablet(s) PO daily 04/04/20 19 2021 Inactive This refill negates all other refills of this medication gabapentin 300 mg capsule RxNorm: 374974 1 Capsule(s) PO TID as needed 02/01/20 19 2018 Inactive True Metrix Glucose Test Strip RxNorm: 1 Test Strips Miscellaneous QA 02/01/20 19 2018 Inactive 100/container Alcohol Prep Pads RxNorm: 514873 1 Patch TOP QA 02/01/20 19 2018 Inactive TRUEplus Lancets 30 gauge RxNorm: 1 Lancets Miscellaneous QAM 02/01/20 19 2018 Inactive 100/box lisinopril 2.5 mg tablet RxNorm: 383255 1 Tablet(s) PO daily 12/28/19 19 2018 Inactive ranitidine 150 mg tablet RxNorm: 807186 1 Tablet(s) PO BID 10/21/19 19 2018 Inactive This refill negates all other refills of this medication albuterol sulfate 2.5 mg/3 mL (0.083 %) solution for nebulization RxNorm: 184603 1 Vial INH QID 10/21/19 19 2018 [...] this medication gabapentin 300 mg capsule RxNorm: 290125 1 Capsule(s) PO TID as needed 10/21/19 19 2018 Inactive atorvastatin 20 mg tablet RxNorm: 223513 1 Tablet(s) PO QHS 10/21/192018 Inactive This refill negates all other refills of this medication trazodone 50 mg tablet RxNorm: 505592 1 Tablet(s) PO QHS 10/21/192018 Inactive This refill negates all other refills of this medication Ventolin HFA 90 mcg/actuation aerosol inhaler RxNorm: 156655 2 Puff(s) INH QID 10/21/192018 Inactive Please do not fill early. Please do not auto refill. This refill negates all other refills of this medication Calcium 600-D3 Plus 600 mg calcium-800 unit-50 mg tablet RxNorm: 1 Tablet(s) PO daily take an additonal tablet for itching. 10/21/192018 Inactive This refill negates all other refills of this medication Singulair 10 mg tablet RxNorm: 730485 1 Tablet(s) PO daily 10/21/192018 Inactive This refill negates all other refills of this medication buspirone 7.5 mg tablet RxNorm: 416342 1 Tablet(s) PO BID 10/21/192018 Inactive This refill negates all other refills of this medication diclofenac sodium 75 mg tablet,delayed release RxNorm: 285078 1 Tablet(s) PO BID 10/21/192018 Inactive This refill negates all other refills of this medication hydrochlorothiazide 12.5 mg tablet RxNorm: 567809 1 Tablet(s) PO QAM 10/21/19 19 2018 Inactive metoprolol succinate ER 50 mg tablet,extended release 24 hr RxNorm: 517550 1 Tablet(s) PO daily 10/21/19 19 2018 Inactive This refill negates all other refills of this medication levothyroxine 50 mcg tablet RxNorm: 758124 1 Tablet(s) PO daily 10/21/19 19 2018 Inactive This refill negates all other refills of this medication cetirizine 10 mg tablet RxNorm: 9415220 1 Tablet(s) PO daily 10/21/192018 Inactive This refill negates all other refills of this medication. Please do not auto refill Flintstones Complete (iron) 18 mg iron chewable tablet RxNorm: 1 Tablet(s) PO daily 10/21/192018 Inactive This refill negates all other refills of this medication buspirone 7.5 mg tablet RxNorm: 118611 1 Tablet(s) PO BID 10/12/19 19 2018 Inactive cetirizine 10 mg tablet RxNorm: 4827850 1 Tablet(s) PO daily 09/28/20 18 2018 Inactive Guaiasorb DM 10 mg-100 mg/5 mL oral liquid RxNorm: 241377 10 Milliliter(s) PO As needed every 4 hr 09/24/202018 Inactive Vicks Vaporub 4.7 %-1.2 %-2.6 % topical ointment RxNorm: 6523929 1 Application TOP TID 09/24/20 18 2018 Inactive levmetamfetamine 50 mg nasal inhaler RxNorm: 1 Unit(s) NASAL Q3-4H 09/24/20 18 2017 Inactive sertraline 50 mg tablet RxNorm: 163850 1 Tablet(s) PO daily 09/09/20 18 2018 Inactive Please note dose trazodone 50 mg tablet RxNorm: 478328 1 Tablet(s) PO QHS 09/06/20 18 2018 Inactive sertraline 50 mg tablet RxNorm: 073655 1 Tablet(s) PO daily 09/06/20 18 2017 Inactive amoxicillin 500 mg tablet RxNorm: 883851 1 Tablet(s) PO Q12H 08/31/20 18 2017 Inactive albuterol sulfate 2.5 mg/3 mL (0.083 %) solution for nebulization RxNorm: 030765 1 Vial INH QID 08/10/20 18 2018 Inactive 60/box. Please do not fill early. Please do not auto refill. Prozac 10 mg capsule RxNorm: 559487 1 Capsule(s) PO daily 08/09/20 18 2017 Inactive buspirone 7.5 mg tablet RxNorm: 570625 1 Tablet(s) PO BID 08/09/20 18 2018 Inactive gabapentin 300 mg capsule RxNorm: 478005 1 Capsule(s) PO TID as needed 08/01/20 18 2018 Inactive hydrochlorothiazide 12.5 mg tablet RxNorm: 965420 1 Tablet(s) PO QAM 08/01/20 18 2018 Inactive ranitidine 150 mg tablet RxNorm: 542321 1 Tablet(s) PO BID 08/01/20 18 2018 Inactive Macrobid 100 mg capsule RxNorm: 761688 1 Capsule(s) PO Q12H 06/21/20 18 2017 Inactive Singulair 10 mg tablet RxNorm: 491039 1 Tablet(s) PO daily 06/14/20 18 2018 Inactive Ventolin HFA 90 mcg/actuation aerosol inhaler RxNorm: 4292737 2 Puff(s) INH QID 06/14/20 18 2018 Inactive Singulair 10 mg tablet RxNorm: 175963 1 Tablet(s) PO daily 06/14/20 18 2017 Inactive buspirone 7.5 mg tablet RxNorm: 172859 1 Tablet(s) PO BID 06/14/20 18 2017 Inactive Prozac 10 mg capsule RxNorm: 537497 1 Capsule(s) PO daily 06/14/20 18 2017 Inactive [employer] Pediatric Sinus Rinse Refill packet RxNorm: 1 Unit Dose NASAL PRN 05/31/20 18 2021 Inactive diclofenac sodium 75 mg tablet,delayed release RxNorm: 775348 1 Tablet(s) PO BID 05/31/20 18 2017 Inactive lisinopril 2.5 mg tablet RxNorm: 038862 1 Tablet(s) PO daily 05/31/20 18 2017 Inactive metoprolol succinate ER 50 mg tablet,extended release 24 hr RxNorm: 675991 1 Tablet(s) PO daily 05/31/20 18 2017 Inactive levothyroxine 50 mcg tablet RxNorm: 319284 1 Tablet(s) PO daily 05/31/20 18 2017 Inactive TRUEplus Lancets 30 gauge RxNorm: 1 Lancets Miscellaneous QAM 05/31/20 18 2017 Inactive 100/box Ventolin HFA 90 mcg/actuation aerosol inhaler RxNorm: 200481 2 Puff(s) INH QID 05/31/20 18 2017 Inactive Aleve 220 mg capsule RxNorm: 4956431 1 Capsule(s) PO BID 05/31/20 18 2018 Inactive ranitidine 150 mg tablet RxNorm: 628336 1 Tablet(s) PO BID 05/31/20 18 2017 Inactive gabapentin 300 mg capsule RxNorm: 306399 1 Capsule(s) PO TID as needed 05/31/20 18 2017 Inactive atorvastatin 20 mg tablet RxNorm: 898776 1 Tablet(s) PO QHS 05/31/20 18 2017 Inactive True Metrix Glucose Test Strip RxNorm: 1 Test Strips Miscellaneous QAM 05/31/20 18 2017 Inactive 50/container Calcium 600-D3 Plus 600 mg calcium-800 unit-50 mg tablet RxNorm: 1 Tablet(s) PO daily take an additonal tablet for itching. 05/31/20 18 2017 Inactive hydrochlorothiazide 12.5 mg tablet RxNorm: 819339 1 Tablet(s) PO QAM 05/31/20 18 2017 Inactive Flintstones Complete (iron) 18 mg iron chewable tablet RxNorm: 1 Tablet(s) PO daily 05/31/20 18 2017 Inactive d-mannose oral powder RxNorm: PO 18 2021 Inactive True Metrix Glucose Meter RxNorm: miscellaneous 08/17/20 19 2018 Inactive sertraline 50 mg tablet RxNorm: 712153 1 Tablet(s) PO daily 11/28/19 20 2019 Inactive loperamide 2 mg tablet RxNorm: 485958 oral 09/29/20 19 2018 Inactive Symbicort 160 mcg-4.5 mcg/actuation HFA aerosol inhaler RxNorm: 2747647 2 Puff(s) INH BID 08/17/20 19 2018 Inactive Medication Administered No Medication Administered data Results Observation Observation Code Item Item Code Result Date Service Location MICROALBUMIN (URINE) 16691 Microalbumin 56292-6 NO SPECIMEN RECEIVED mg/dL 021 [facility] [address] [place] [address] MICROALBUMIN (URINE) 61868 Microalbumin/Cre atinine Ratio 89791-6 NO SPECIMEN RECEIVED MCG/MGCREAT 021 [facility] [address] [place] [address] MICROALBUMIN (URINE) 49489 Urine Creatinine 2161-8 NO SPECIMEN RECEIVED mg/dL 021 [facility] [address] [place] [address] Procedures Procedure Codes Date Hypertension CPT-4: HTN 04/01/2021 Functional Assessment ADLs - Patient needs direct assistance, cuing, or supervision, to perform the following safely:/*No assistance, cuing, or supervision needed, IADLs - Patient needs direct assistance, cuing, or supervision, to perform the following safely:/taking medications, IADLs - Patient needs direct assistance, cuing, or supervision, to perform the following safely:/transportation CPT-4: DFAUnknown 04/01/2021 Hypertension Hypertension Follow Up Plan/Lifestyle modification weight reduction, Hypertension Follow Up Plan/Repeat BP measurement within one month, Hypertension Follow Up Plan/Lifestyle modification including reduce salt intake CPT-4: HTNUnknown 04/01/2021 Tobacco Assessment/Screening CPT-4: TCA 08/2021 Patient Health Questionnaire CPT-4: DPHQ 08/2021 Mini Mental State Exam CPT-4: DMMA Annual Wellness Visit (Subsequent Visit) CPT-4: G0439 01/13/2021 Advanced Care Planning CPT-4: VACP Fall Risk Assessment SNOMED CT: 61879591 4 CPT-4: DFRA 01/13/2021 [place] Assessment CPT-4: DSWA 12/01 Urinalysis, dip stick CPT-4: 49041 09/24/2020 Patient Health Questionnaire CPT-4: DPHQ Electrocardiogram CPT-4: 26972 05/14/2020 Tobacco Assessment/Screening CPT-4: TCA Fall Risk Assessment SNOMED CT: 17954184 4 CPT-4: DFRA 01/01/2020 Functional Assessment CPT-4: DFA 01/01/2020 [place] Assessment CPT-4: DSWA 11/04 Patient Health Questionnaire CPT-4: DPHQ [place] Assessment CPT-4: DSWA 10/03 Hypertension CPT-4: HTN 10/17/2019 Fall Risk Assessment SNOMED CT: 05992056 4 CPT-4: DFRA 09/19/2019 Functional Assessment CPT-4: DFA 09/19/2019 Urinalysis, dip stick CPT-4: 03397 06/21/2019 Tobacco Assessment/Screening CPT-4: TCA Patient Health Questionnaire CPT-4: DPHQ AHA/REBECCA Classification Assessment CPT-4: DAHA 04/25/2019 Controlled Substance Report CPT-4: CTRSU 04/03 Urinalysis, dip stick CPT-4: 46804 03/28/2019 Urinalysis, dip stick CPT-4: 24211 03/28/2019 I9O-Tmfrqweeuowkraf CPT-4: 70638 Unknown Q4T-Snpvkvegjuchfrd CPT-4: 65894 Unknown B0J-Hvqncmskkchrxyb CPT-4: 99506 Unknown B9S-Ibgkmthohogsxyb CPT-4: 98243 Unknown T9H-Pkjjzefdhnkdnhy CPT-4: 09509 Unknown D1F-Ezfzsxhqlxppebs CPT-4: 28109 Unknown T0M-Vvdtlxngtaeqbxa CPT-4: 95207 Unknown Gynecology Referral SNOMED CT: 311244565 CPT-4: R14 Unknown Vital Signs Date Vital 04/01/2021 Blood Pressure 1: 116/84 Code: 8480-6 BMI: 53.4 Code: 11758-8 Heart Rate 1: 78 bpm Height: 4'11 Code: 8302-2 Respiratory Rate: 18 bpm SpO2: 98% Temperature: 36.3 (C) / 97.3 (F) Weight: 264 lbs 4 oz Code: 17718-3 Reason For Visit Reason For Visit Effective Dates Notes blisters 04/01/2021 diabetes mellitus 04/01/2021 hyperlipidemia disease 04/01/2021 Interim health update 04/01/2021 Encounters Encounter Performer Location Location Address Codes Mag[facility] e HOME VISIT EST PATIENT Diagnosis: Type 2 diabetes mellitus with peripheral neuropathy[ICD10: E11.42] Diagnosis: Hypertensive heart disease with heart failure[ICD10: I11.0] Anna Culver [place] [facility] [address] [facility] [address] [place] [address] CPT-4: 63320 04/01/2021 Plan of Care Planned Activity Notes Codes Status Date Visit Plan: R63.0-783.0 Anorexia symptoms persistent advised to continue to try small, more frequent food intake, discussed limiting carbonated beverages as this may make her feel full taking away appetite discussed benefits of [place] [employer] not using note weight has [...] demand - 01/29/2021 Hgb A1C 5.3 10/17/2019 [place] [facility] 7/10-instructed on good daily foot care [...] anxiety and depressed mood routine follow up [facility] 03/13/2021 PHQ 9 Score 4 Sertraline increased [...] new appt for pap in June 2020-[facility]-reports pap negative-records requested Z01.89-V72.85 Encounter for screening for tobacco use 03/13/2021 Tobacco screen complete-patient denies ever smoking Z12.31-V76.12 (Z12.31-V76.12) Encounter for screening mammogram for malignant neoplasm of breast Z12.11-V76.51 (Z12.11-V76.51) Encounter for screening for malignant neoplasm of colon Preventative testing not indicated due to age *I reviewed the most recent CDC guidelines regarding Covid-19/Coronavirus with the patient/caregiver/designee 04/01/2021 Patient Education: Patient Medication Summary Completed 04/01/2021 Patient Education: Diabetes Complete d 04/01/2021 Appointment: Anna Culver WPtel: [address] [place] [address] ETV 03/24/2021 Appointment: Anna Culver WPtel: [address] [place] [address] ETV 03/13/2021 Appointment: Anna Culver WPtel: [address] [place] [address] E410 02/11/2021 Appointment: Chivo Bishop WPtel: [id number] [place] [address] E410 01/29/2021 Appointment: Anna Culver WPtel: [address] [place] [address] ETV 01/13/2021 Appointment: Anna Culver WPtel: [address] [place] [address] E410 12/17/2020 Appointment: Chivo Bishop WPtel: [address] [place] [address] ETV 11/28/2020 Appointment: Anna Culver WPtel: [address] [place] [address] ETV 11/24/2020 Appointment: Anna Culver WPtel: [address] [place] [address] E410 10/29/2020 Appointment: Anna Culver WPtel: [address] [place] [address] E410 09/24/2020 Appointment: Anna Culver WPtel: [address] [place] [address] ETV 08/26/2020 Appointment: Anna Culver WPtel: [address] [place] [address] ETV 08/19/2020 Appointment: Anna Culver WPtel: [address] [place] [address] ETV 07/22/2020 Appointment: Anna Culver WPtel: [address] [place] [address] ETV 07/08/2020 Appointment: Gianna Birmingham: [address] [facility] [address] [id number] [place] ECHO 07/02/2020 Appointment: Anna Culver WPtel: [id number] [place] [address] E452 06/11/2020 Appointment: Anna Culver WPtel: [address] [place] [address] E452 05/14/2020 Appointment: Anna Culver WPtel: [address] [place] [address] E452 04/17/2020 Appointment: Anna Culver WPtel: [address] [place] [address] E452 03/21/2020 Appointment: Anna Culver WPtel: [address] [place] [address] E452 02/14/2020 Appointment: Anna Culver WPtel: [address] [place] [address] E452 01/24/2020 Appointment: Anna Culver WPtel: [address] [place] [address] E452 01/01/2020 Appointment: Anna Culver WPtel: [address] [place] [address] [place] E452 11/28/2019 Appointment: Anna Culver WPtel: [address] [place] [address] [place] E452 10/17/2019 Appointment: Anna Culver WPtel: [address] [place] [address] [place] E452 09/19/2019 Appointment: Sudha Hernadez WPtel: [address] [facility] 202b [id number] [place] E452 07/04/2019 Appointment: Sudha Hernadez WPtel: [address] [facility] [id number] E452 06/21/2019 Appointment: Charlene Oropeza WPtel: [address] [facility] [id number] E452 05/24/2019 Appointment: Mallory Delgado E452 04/27/2019 Appointment: Charlene Oropeza WPtel: [address] [facility] [id number] E452 04/25/2019 Appointment: Rasta Palafox WPtel: [address] [facility] [id number] E452 03/28/2019 Appointment: Rasta Palafox WPtel: [address] [place] [address] [id number] E452 02/14/2019 Appointment: Rasta Palafox WPtel: [address] [place] [address] [id number] E452 01/31/2019 Appointment: Rasta Palafox WPtel: [address] [place] [address] [id number] E420 12/27/2018 Referral: Pending Gynecology Referral Information Referral Processed Referral: Pending Pulmonolog y Referral Information Referral Processed Referral: Pending Psychiatry Referral Information Referral Initiated Referral: Pending Respirator y Services Referral Information Referral Initiated Referral: Pending Ophthalmology Referral Information Referral Initiated Referral: [facility] WPtel: [address] [employer] Teacher placed a call out to the patient to notify her that it has been recommended that she be seen by a urologist. Patient agreed to be seen, does not have a provider of choice and no transportation issues. Water Safety Teacher faxed referral and clinical notes to [facility] in [place], [place] near the patient's home. Patient to [...] seen and prefers a provider in the [place] or [place] area. Water Safety Teacher placed a call out to everyone listed in the area and the only location that was able to accept the patient's insurance was [facility] [address] [place] [address] and spoke with Maylin. Maylin asked that the patient's referral, face sheet and visit notes be faxed to . [employer] Teacher faxed over requested documents. Patient appointment confirmation letter generated and mailed to her home address. Patient to call to schedule an appointment. Processed Referral: [facility] Neurolog y WPtel: [address] [place] [address] Patient notified that it has been advised that she be seen by Neurology. Patient agreed to be seen and prefers to be seen by a provider in the [place], [place] area. Patient denies any concerns with transportation, and prefers to schedule her own appointment. Water Safety Teacher placed a call out to [facility] [...] full taking away appetite discussed benefits of [employer] [employer] not using note weight has [...] adjustments to this medication received new monitor Alexnicole through [facility]-participant of [employer] - 01/29/2021 Hgb A1C 5.3 [...] anxiety and depressed mood routine follow up [facility] [place] 03/13/2021 PHQ 9 Score 4 Sertraline increased [...] new appt for pap in June 2020-[facility]-reports pap negative-records requested Z01.89-V72.85 Encounter for screening [...]
--- OUTSIDE RECORDS SUMMARY | 2023-12-07 02:17 | XMS_ITS | CCD ---
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 Unknown Has never used illegal drugs 05/31/2018 DNR Order/ Advanced Directive Unknown Full Code 05/31/2018 Allergies, Adverse Reactions, Alerts Substance Reaction Codes Entered Date Inactivated Date Status OxyContin itch, RxNorm: 928543 01/13/2021 No Inactive Da te Active *No [...] toe ICD-10: S90.416A ICD-9: 917.0 02/14/2020 Resolved [place] eye ICD-10: H10.029 ICD-9: 372.03 12/29/2019 Resolved [...] unspecified ICD-10: R60.9 ICD-9: 782.3 07/11/2018 Active snf (current) use of non-steroidal anti-inflammatories (NSAID) ICD-10: Z79.1 ICD-9: V58.64 06/13/2018 Active Medications Medication Codes Instructions Start Date Stop Date Status Fill Instructions Singulair 10 mg tablet RxNorm: 017015 TAKE (1) TABLET BY MOUTH DAILY 07/16/20 21 2020 Inactive metformin 1,000 mg tablet RxNorm: 921753 1 Tablet(s) Oral two times a day 07/16/20 21 2021 Inactive lisinopril 2.5 mg tablet RxNorm: 365808 Take 1 Tablet(s) Oral every day 07/11/20 21 2020 Inactive hydrochlorothiazide 25 mg tablet RxNorm: 180614 Take 1 Tablet(s) Oral every day 06/12/20 21 2020 Inactive ondansetron 4 mg disintegrating tablet RxNorm: 928067 1 Tablet(s) Oral two times a day 06/10/20 21 2020 Inactive Sudafed 12 Hour 120 mg tablet,extended release RxNorm: 5437138 TAKE 1 TABLET BY MOUTH EVERY 12 HOURS NEEDED 06/01/20 21 2021 Inactive Heartburn Relief (famotidine) 10 mg tablet RxNorm: 940551 Take 1 Tablet(s) Oral every morning 05/07/20 21 2020 Inactive omeprazole 20 mg capsule,delayed release RxNorm: 106076 1 Capsule(s) Oral every evening 04/03/20 21 2020 Inactive sertraline 100 mg tablet RxNorm: 165469 2 Tablet(s) Oral every day 03/13/20 21 2020 Inactive levothyroxine 50 mcg tablet RxNorm: 573734 TAKE (1) TABLET BY MOUTH DAILY 02/04/202020 Inactive metformin 500 mg tablet RxNorm: 108626 1 Tablet(s) Oral two times a day take with 500mg to equal 1000mg 01/14/20 21 2020 Inactive gabapentin 300 mg capsule RxNorm: 204381 TAKE 1 CAPSULE BY MOUTH THREE TIMES A DAY 01/14/20 21 2020 Inactive lisinopril 2.5 mg tablet RxNorm: 523234 TAKE 1 TABLET BY MOUTH DAILY 01/06/20 21 2020 Inactive gabapentin 300 mg capsule RxNorm: 619250 TAKE 1 CAPSULE BY MOUTH THREE TIMES A DAY 01/06/20 21 2020 Inactive Singulair 10 mg tablet RxNorm: 391990 TAKE (1) TABLET BY MOUTH DAILY 01/06/20 21 2020 Inactive metformin 1,000 mg tablet RxNorm: 975995 1 Tablet(s) Oral two times a day 01/06/20 21 2020 Inactive atorvastatin 40 mg tablet RxNorm: 206824 1 Tablet(s) Oral every day 12/06/19 21 2020 Inactive omeprazole 20 mg capsule,delayed release RxNorm: 716384 1 Capsule(s) Oral every evening 11/24/19 21 2020 Inactive famotidine 10 mg tablet RxNorm: 509392 1 Tablet(s) Oral every morning 11/24/19 21 2020 Inactive Alcohol Prep Pads RxNorm: 887895 USE EACH MORNING 10/14/19 21 2020 Inactive omeprazole 20 mg capsule,delayed release RxNorm: 333719 1 Capsule(s) Oral two times a day 10/13/19 21 2021 Inactive omeprazole 20 mg capsule,delayed release RxNorm: 086594 TAKE 1 CAPSULE BY MOUTH EVERY DAY 10/08/19 21 2021 Inactive Macrobid 100 mg capsule RxNorm: 232762 1 Capsule(s) Oral every 12 hours with food 10/01/20 20 2020 Inactive omeprazole 20 mg capsule,delayed release RxNorm: 794447 1 Capsule(s) Oral two times a day 09/24/20 20 2021 Inactive metformin 1,000 mg tablet RxNorm: 153851 1 Tablet(s) Oral two times a day 08/19/20 20 2020 Inactive start on September 11, 2020 metformin 500 mg tablet RxNorm: 792264 1 Tablet(s) Oral two times a day take with 500mg to equal 1000mg 08/19/20 20 2019 Inactive gabapentin 300 mg capsule RxNorm: 780450 TAKE 1 CAPSULE BY MOUTH THREE TIMES DAILY 07/11/20 20 2020 Inactive cetirizine 10 mg tablet RxNorm: 8796575 TAKE (1) TABLET BY MOUTH DAILY 07/11/20 20 2020 Inactive metformin 500 mg tablet RxNorm: 960093 1 Tablet(s) Oral two times a day 07/08/20 20 2019 Inactive loperamide 2 mg tablet RxNorm: 616014 1 Tablet(s) Oral as needed take one tablet after each loose stool, maximum of 8 tablets in 24 hours 06/24/20 20 2021 Inactive Sudafed 12 Hour 120 mg tablet,extended release RxNorm: 5814548 TAKE 1 TABLET BY MOUTH EVERY 12 HOURS NEEDED 06/11/20 20 2019 Inactive hydrochlorothiazide 25 mg tablet RxNorm: 294532 TAKE (1) TABLET BY MOUTH EVERY DAY 06/11/20 20 2019 Inactive omeprazole 20 mg capsule,delayed release RxNorm: 219496 TAKE 1 CAPSULE BY MOUTH EVERY DAY 05/14/20 20 2020 Inactive metformin 500 mg tablet RxNorm: 587028 1 Tablet(s) Oral every day 05/12/20 20 2019 Inactive True Metrix Glucose Test Strip RxNorm: 1 Test Strips Miscellaneous two times a day as needed 04/17/20 No Stop Date Active metformin 500 mg tablet RxNorm: 035565 1 Tablet(s) Oral every day 04/17/20 20 2019 Inactive diclofenac sodium 75 mg tablet,delayed release RxNorm: 308673 1 Tablet(s) PO BID 04/14/20 20 2021 Inactive This refill negates all other refills of this medication Sudafed 12 Hour 120 mg tablet,extended release RxNorm: 3349126 TAKE 1 TABLET BY MOUTH EVERY 12 HOURS NEEDED 03/14/20 20 2019 Inactive True Metrix Glucose Test Strip RxNorm: 1 Test Strips Miscellaneous every morning 03/13/20 20 2019 Inactive 100/container True Metrix Glucose Test Strip RxNorm: 1 Test Strips Miscellaneous [facility] 02/22/20 20 2019 Inactive 100/container loperamide 2 mg tablet RxNorm: 504323 1 Tablet(s) Oral as needed take one tablet after each loose stool, maximum of 8 tablets in 24 hours 02/22/20 20 2019 Inactive cetirizine 10 mg tablet RxNorm: 0899814 1 Tablet(s) PO daily 01/17/20 20 2019 Inactive loperamide 2 mg tablet RxNorm: 565675 1 Tablet(s) Oral as needed take one tablet after each loose stool, maximum of 8 tablets in 24 hours 01/17/20 20 2019 Inactive quetiapine 100 mg tablet RxNorm: 296249 1 Tablet(s) Oral every night at bedtime 01/17/20 20 2019 Inactive levothyroxine 50 mcg tablet RxNorm: 664737 1 Tablet(s) PO daily 01/17/20 20 2020 Inactive gabapentin 300 mg capsule RxNorm: 913639 1 Capsule(s) PO TID 01/17/20 20 2019 Inactive levothyroxine 50 mcg tablet RxNorm: 675882 1 Tablet(s) PO daily 01/15/20 20 2019 Inactive lisinopril 2.5 mg tablet RxNorm: 674261 1 Tablet(s) PO daily 01/15/20 20 2020 Inactive gabapentin 300 mg capsule RxNorm: 910904 1 Capsule(s) PO TID 01/15/20 20 2019 Inactive cetirizine 10 mg tablet RxNorm: 0115954 1 Tablet(s) PO daily 01/15/20 20 2019 Inactive Singulair 10 mg tablet RxNorm: 871129 1 Tablet(s) PO daily 01/15/20 20 2020 Inactive gentamicin 0.3 % eye drops RxNorm: 244670 1 Drop(s) ophthalmic (eye) four times a day 12/29/19 20 2019 Inactive gentamicin 0.3 % eye drops RxNorm: 457080 1 Drop(s) ophthalmic (eye) four times a day 12/29/19 20 2019 Inactive gentamicin 0.3 % eye drops RxNorm: 452610 1 Drop(s) ophthalmic (eye) four times a day 12/29/19 20 2019 Inactive hydrochlorothiazide 25 mg tablet RxNorm: 918891 1 Tablet(s) Oral every day 12/21/19 20 2019 Inactive Sudafed 12 Hour 120 mg tablet,extended release RxNorm: 0608847 TAKE (1) TABLET BY MOUTH EVERY 12 HOURS NEEDED 12/21/19 20 2019 Inactive loperamide 2 mg tablet RxNorm: 122237 1 Tablet(s) Oral as needed take one tablet after each loose stool, maximum of 8 tablets in 24 hours 12/11/19 20 2019 Inactive loperamide 2 mg tablet RxNorm: 832428 1 Tablet(s) Oral as needed take one tablet after each loose stool, maximum of 8 tablets in 24 hours 12/11/19 20 2019 Inactive atorvastatin 40 mg tablet RxNorm: 986335 1 Tablet(s) Oral every day 11/29/19 20 2020 Inactive quetiapine 100 mg tablet RxNorm: 176874 1 Tablet(s) Oral every night at bedtime 11/28/19 20 2019 Inactive sertraline 100 mg tablet RxNorm: 812607 1 Tablet(s) Oral 11/28/19 20 2019 Inactive omeprazole 20 mg capsule,delayed release RxNorm: 587717 1 Capsule(s) Oral every day 11/20/19 20 2019 Inactive amoxicillin 250 mg capsule RxNorm: 433018 1 Capsule(s) Oral three times a day 11/07/19 20 2019 Inactive multivitamin with iron-mineral tablet RxNorm: 1 Tablet(s) Oral every day 10/29/19 20 2021 Inactive cetirizine 10 mg tablet RxNorm: 2127077 1 Tablet(s) PO daily 10/20/19 20 2019 Inactive This refill negates all other refills of this medication. Please do not auto refill Singulair 10 mg tablet RxNorm: 712904 1 Tablet(s) PO daily 10/20/19 20 2019 Inactive This refill negates all other refills of this medication gabapentin 300 mg capsule RxNorm: 342661 1 Capsule(s) PO TID 10/20/19 20 2019 Inactive lisinopril 2.5 mg tablet RxNorm: 826474 1 Tablet(s) PO daily 10/20/19 20 2019 Inactive levothyroxine 50 mcg tablet RxNorm: 602391 1 Tablet(s) PO daily 10/20/19 20 2019 Inactive This refill negates all other refills of this medication fenugreek seed extract 500 mg capsule RxNorm: 1 Capsule(s) Oral three times a day 10/17/19 20 2021 Inactive hydrochlorothiazide 25 mg tablet RxNorm: 211050 1 Tablet(s) Oral every day 10/17/19 20 2019 Inactive Alcohol Prep Pads RxNorm: 182018 1 Patch TOP QAM 10/16/19 20 2020 Inactive loperamide 2 mg tablet RxNorm: 358603 1 Tablet(s) Oral as needed take one [...] 2019 Inactive hydrochlorothiazide 25 mg tablet RxNorm: 255582 1 Tablet(s) Oral every day 09/19/20 19 2019 Inactive Sudafed 12 Hour 120 mg tablet,extended release RxNorm: 2477687 1 Tablet(s) Oral every 12 hours as needed 09/11/20 19 2018 Inactive omeprazole 20 mg capsule,delayed release RxNorm: 511960 1 Capsule(s) Oral every day 09/07/20 19 2019 Inactive Sudafed 12 Hour 120 mg tablet,extended release RxNorm: 5014076 1 Tablet(s) Oral every 12 hours as needed 09/04/20 19 2018 Inactive pantoprazole 40 mg tablet,delayed release RxNorm: 667309 1 Tablet(s) Oral every day 08/24/20 19 2018 Inactive discontinue any other H2Blkr. and PPI albuterol sulfate 2.5 mg/3 mL (0.083 %) solution for nebulization RxNorm: 044366 1 Vial Inhalation every four hours as needed as needed for dyspnea 08/17/20 19 2019 Inactive 60/box. This refill negates all other refills of this medication. Please do not fill early. Please do not auto refill. Symbicort 160 mcg-4.5 mcg/actuation HFA aerosol inhaler RxNorm: 6298637 2 Puff(s) INH BID 08/17/20 No Stop Date Active Alcohol Prep Pads RxNorm: 109925 1 Patch TOP QAM 08/17/20 19 2019 Inactive Ventolin HFA 90 mcg/actuation aerosol inhaler RxNorm: 607459 2 Puff(s) INH QID 08/09/20 19 2019 Inactive Please do not fill early. Please do not auto refill. This refill negates all other refills of this medication True Metrix Glucose Test Strip RxNorm: 1 Test Strips Miscellaneous QA 08/09/20 19 2019 Inactive 100/container atorvastatin 40 mg tablet RxNorm: 980891 1 Tablet(s) Oral every day 07/04/20 19 2019 Inactive levmetamfetamine 50 mg nasal inhaler RxNorm: 1 Unit(s) NASAL Q3-4H Do not use more than every 3 hours or 8 times/24hours 06/26/20 19 2021 Inactive Please do not auto refill. This refill negates all other refills of this medication buspirone 7.5 mg tablet RxNorm: 097225 1 Tablet(s) PO BID 06/26/20 19 2020 Inactive This refill negates all other refills of this medication hydrochlorothiazide 12.5 mg tablet RxNorm: 093204 1 Tablet(s) PO QAM 06/26/20 19 2019 Inactive Ventolin HFA 90 mcg/actuation aerosol inhaler RxNorm: 364728 2 Puff(s) INH QID 06/26/20 19 2018 Inactive Please do not fill early. Please do not auto refill. This refill negates all other refills of this medication Singulair 10 mg tablet RxNorm: 934344 1 Tablet(s) PO daily 06/26/20 19 2019 Inactive This refill negates all other refills of this medication cetirizine 10 mg tablet RxNorm: 1377112 1 Tablet(s) PO daily 06/26/20 19 2019 Inactive This refill negates all other refills of this medication. Please do not auto refill levothyroxine 50 mcg tablet RxNorm: 487686 1 Tablet(s) PO daily 06/26/20 19 2019 Inactive This refill negates all other refills of this medication diclofenac sodium 75 mg tablet,delayed release RxNorm: 652666 1 Tablet(s) PO BID 06/26/20 19 2019 Inactive This refill negates all other refills of this medication ranitidine 150 mg tablet RxNorm: 615307 1 Tablet(s) PO BID 06/26/20 19 2018 Inactive This refill negates all other refills of this medication Calcium 600-D3 Plus (mag-zinc) 600 mg calcium-800 unit-50 mg tablet RxNorm: 1 Tablet(s) PO daily take an additonal tablet for itching. 06/26/20 19 2018 Inactive This refill negates all other refills of this medication albuterol sulfate 2.5 mg/3 mL (0.083 %) solution for nebulization RxNorm: 054333 1 Vial INH QID 06/26/20 19 2018 Inactive 60/box. This refill negates all other refills of this medication. Please do not fill early. Please do not auto refill. lisinopril 2.5 mg tablet RxNorm: 082614 1 Tablet(s) PO daily 06/21/20 19 2019 Inactive gabapentin 300 mg capsule RxNorm: 724241 1 Capsule(s) PO TID 06/21/20 19 2019 Inactive atorvastatin 20 mg tablet RxNorm: 174515 1 Tablet(s) PO QHS 06/07/20 19 2018 Inactive This refill negates all other refills of this medication TRUEplus Lancets 30 gauge RxNorm: 1 Lancets Miscellaneous QAM 05/29/20 19 2018 Inactive 100/box gabapentin 300 mg capsule RxNorm: 601137 1 Capsule(s) PO TID 05/03/20 19 2018 Inactive Flnickolas Beckett (iron) 18 mg iron chewable tablet RxNorm: 1 Tablet(s) PO daily 04/04/20 19 2021 Inactive This refill negates all other refills of this medication gabapentin 300 mg capsule RxNorm: 423593 1 Capsule(s) PO TID as needed 02/01/20 19 2018 Inactive True Metrix Glucose Test Strip RxNorm: 1 Test Strips Miscellaneous QAM 02/01/20 19 2018 Inactive 100/container Alcohol Prep Pads RxNorm: 426098 1 Patch TOP QAM 02/01/202018 Inactive TRUEplus Lancets 30 gauge RxNorm: 1 Lancets Miscellaneous QAM 02/01/20 19 2018 Inactive 100/box lisinopril 2.5 mg tablet RxNorm: 636391 1 Tablet(s) PO daily 12/28/192018 Inactive ranitidine 150 mg tablet RxNorm: 699396 1 Tablet(s) PO BID 10/21/192018 Inactive This refill negates all other refills of this medication albuterol sulfate 2.5 mg/3 mL (0.083 %) solution for nebulization RxNorm: 670755 1 Vial INH QID 10/21/192018 Inactive 60/box. [...] this medication gabapentin 300 mg capsule RxNorm: 830726 1 Capsule(s) PO TID as needed 10/21/192018 Inactive atorvastatin 20 mg tablet RxNorm: 140602 1 Tablet(s) PO QHS 10/21/19 19 2018 Inactive This refill negates all other refills of this medication trazodone 50 mg tablet RxNorm: 680137 1 Tablet(s) PO QHS 10/21/19 19 2018 Inactive This refill negates all other refills of this medication Ventolin HFA 90 mcg/actuation aerosol inhaler RxNorm: 895742 2 Puff(s) INH QID 10/21/19 19 2018 Inactive Please do not fill early. Please do not auto refill. This refill negates all other refills of this medication Calcium 600-D3 Plus 600 mg calcium-800 unit-50 mg tablet RxNorm: 1 Tablet(s) PO daily take an additonal tablet for itching. 10/21/192018 Inactive This refill negates all other refills of this medication Singulair 10 mg tablet RxNorm: 711601 1 Tablet(s) PO daily 10/21/192018 Inactive This refill negates all other refills of this medication buspirone 7.5 mg tablet RxNorm: 502378 1 Tablet(s) PO BID 10/21/19 19 2018 Inactive This refill negates all other refills of this medication diclofenac sodium 75 mg tablet,delayed release RxNorm: 762404 1 Tablet(s) PO BID 10/21/19 19 2018 Inactive This refill negates all other refills of this medication hydrochlorothiazide 12.5 mg tablet RxNorm: 633978 1 Tablet(s) PO QAM 10/21/192018 Inactive metoprolol succinate ER 50 mg tablet,extended release 24 hr RxNorm: 215378 1 Tablet(s) PO daily 10/21/192018 Inactive This refill negates all other refills of this medication levothyroxine 50 mcg tablet RxNorm: 136959 1 Tablet(s) PO daily 10/21/19 19 2018 Inactive This refill negates all other refills of this medication cetirizine 10 mg tablet RxNorm: 4410059 1 Tablet(s) PO daily 10/21/192018 Inactive This refill negates all other refills of this medication. Please do not auto refill Flintstones Complete (iron) 18 mg iron chewable tablet RxNorm: 1 Tablet(s) PO daily 10/21/19 19 2018 Inactive This refill negates all other refills of this medication buspirone 7.5 mg tablet RxNorm: 974944 1 Tablet(s) PO BID 10/12/19 19 2018 Inactive cetirizine 10 mg tablet RxNorm: 5417376 1 Tablet(s) PO daily 09/28/20 18 2018 Inactive Guaiasorb DM 10 mg-100 mg/5 mL oral liquid RxNorm: 644465 10 Milliliter(s) PO As needed every 4 hr 09/24/202018 Inactive Vicks Vaporub 4.7 %-1.2 %-2.6 % topical ointment RxNorm: 6689713 1 Application TOP TID 09/24/20 18 2018 Inactive levmetamfetamine 50 mg nasal inhaler RxNorm: 1 Unit(s) NASAL Q3-4H 09/24/20 18 2017 Inactive sertraline 50 mg tablet RxNorm: 061558 1 Tablet(s) PO daily 09/09/20 18 2018 Inactive Please note dose trazodone 50 mg tablet RxNorm: 379263 1 Tablet(s) PO QHS 09/06/20 18 2018 Inactive sertraline 50 mg tablet RxNorm: 799074 1 Tablet(s) PO daily 09/06/20 18 2017 Inactive amoxicillin 500 mg tablet RxNorm: 210099 1 Tablet(s) PO Q12H 08/31/20 18 2017 Inactive albuterol sulfate 2.5 mg/3 mL (0.083 %) solution for nebulization RxNorm: 263231 1 Vial INH QID 08/10/20 18 2018 Inactive 60/box. Please do not fill early. Please do not auto refill. Prozac 10 mg capsule RxNorm: 676037 1 Capsule(s) PO daily 08/09/20 18 2017 Inactive buspirone 7.5 mg tablet RxNorm: 008431 1 Tablet(s) PO BID 08/09/20 18 2018 Inactive gabapentin 300 mg capsule RxNorm: 516546 1 Capsule(s) PO TID as needed 08/01/20 18 2018 Inactive hydrochlorothiazide 12.5 mg tablet RxNorm: 672174 1 Tablet(s) PO QAM 08/01/20 18 2018 Inactive ranitidine 150 mg tablet RxNorm: 364754 1 Tablet(s) PO BID 08/01/20 18 2018 Inactive Macrobid 100 mg capsule RxNorm: 428436 1 Capsule(s) PO Q12H 06/21/20 18 2017 Inactive Singulair 10 mg tablet RxNorm: 245678 1 Tablet(s) PO daily 06/14/20 18 2018 Inactive Ventolin HFA 90 mcg/actuation aerosol inhaler RxNorm: 9565226 2 Puff(s) INH QID 06/14/20 18 2018 Inactive Singulair 10 mg tablet RxNorm: 988014 1 Tablet(s) PO daily 06/14/20 18 2017 Inactive buspirone 7.5 mg tablet RxNorm: 421961 1 Tablet(s) PO BID 06/14/20 18 2017 Inactive Prozac 10 mg capsule RxNorm: 632942 1 Capsule(s) PO daily 06/14/20 18 2017 Inactive Neilmed Pediatric Sinus Rinse Refill packet RxNorm: 1 Unit Dose NASAL PRN 05/31/20 18 2021 Inactive diclofenac sodium 75 mg tablet,delayed release RxNorm: 229645 1 Tablet(s) PO BID 05/31/20 18 2017 Inactive lisinopril 2.5 mg tablet RxNorm: 755361 1 Tablet(s) PO daily 05/31/20 18 2017 Inactive metoprolol succinate ER 50 mg tablet,extended release 24 hr RxNorm: 300194 1 Tablet(s) PO daily 05/31/20 18 2017 Inactive levothyroxine 50 mcg tablet RxNorm: 663089 1 Tablet(s) PO daily 05/31/20 18 2017 Inactive TRUEplus Lancets 30 gauge RxNorm: 1 Lancets Miscellaneous QAM 05/31/20 18 2017 Inactive 100/box Ventolin HFA 90 mcg/actuation aerosol inhaler RxNorm: 505501 2 Puff(s) INH QID 05/31/20 18 2017 Inactive Aleve 220 mg capsule RxNorm: 7026994 1 Capsule(s) PO BID 05/31/20 18 2018 Inactive ranitidine 150 mg tablet RxNorm: 476578 1 Tablet(s) PO BID 05/31/20 18 2017 Inactive gabapentin 300 mg capsule RxNorm: 264154 1 Capsule(s) PO TID as needed 05/31/20 18 2017 Inactive atorvastatin 20 mg tablet RxNorm: 460128 1 Tablet(s) PO QHS 05/31/20 18 2017 Inactive True Metrix Glucose Test Strip RxNorm: 1 Test Strips Miscellaneous QAM 05/31/20 18 2017 Inactive 50/container Calcium 600-D3 Plus 600 mg calcium-800 unit-50 mg tablet RxNorm: 1 Tablet(s) PO daily take an additonal tablet for itching. 05/31/20 18 2017 Inactive hydrochlorothiazide 12.5 mg tablet RxNorm: 185152 1 Tablet(s) PO QAM 05/31/20 18 2017 Inactive Flintstones Complete (iron) 18 mg iron chewable tablet RxNorm: 1 Tablet(s) PO daily 05/31/20 18 2017 Inactive d-mannose oral powder RxNorm: PO 18 2021 Inactive True Metrix Glucose Meter RxNorm: miscellaneous 08/17/20 19 2018 Inactive sertraline 50 mg tablet RxNorm: 193991 1 Tablet(s) PO daily 11/28/19 20 2019 Inactive loperamide 2 mg tablet RxNorm: 069997 oral 09/29/20 19 2018 Inactive Symbicort 160 mcg-4.5 mcg/actuation HFA aerosol inhaler RxNorm: 3429387 2 Puff(s) INH BID 08/17/20 19 2018 Inactive Medication Administered No Medication Administered data Procedures Procedure Codes Date Frailty Screening CPT-4: SFD 05/20/2021 Hypertension CPT-4: HTN 04/01/2021 Tobacco Assessment/Screening CPT-4: TCA 08/2021 Patient Health Questionnaire CPT-4: DPHQ 08/2021 Mini Mental State Exam CPT-4: DMMA Annual Wellness Visit (Subsequent Visit) CPT-4: G0439 01/13/2021 Advanced Care Planning CPT-4: VACP Fall Risk Assessment SNOMED CT: 76954160 4 CPT-4: DFRA 01/13/2021 [place] Assessment CPT-4: DSWA 12/01 Urinalysis, dip stick CPT-4: 84327 09/24/2020 Patient Health Questionnaire CPT-4: DPHQ Electrocardiogram CPT-4: 32034 05/14/2020 Tobacco Assessment/Screening CPT-4: TCA Fall Risk Assessment SNOMED CT: 20424712 4 CPT-4: DFRA 01/01/2020 Functional Assessment CPT-4: DFA 01/01/2020 [place] Assessment CPT-4: DSWA 11/04 Patient Health Questionnaire CPT-4: DPHQ [place] Assessment CPT-4: DSWA 10/03 Hypertension CPT-4: HTN 10/17/2019 Fall Risk Assessment SNOMED CT: 28457769 4 CPT-4: DFRA 09/19/2019 Functional Assessment CPT-4: DFA 09/19/2019 Urinalysis, dip stick CPT-4: 97195 06/21/2019 Tobacco Assessment/Screening CPT-4: TCA Patient Health Questionnaire CPT-4: DPHQ AHA/REBECCA Classification Assessment CPT-4: DAHA 04/25/2019 Controlled Substance Report CPT-4: CTRSU 04/03 Urinalysis, dip stick CPT-4: 07322 03/28/2019 Urinalysis, dip stick CPT-4: 98789 03/28/2019 [id number]-Zmaqxdpvddbtzhu CPT-4: 48369 Unknown E5S-Iadjawznxeqhkna CPT-4: 64195 Unknown N5E-Wfujedhmyzmfdeq CPT-4: 42612 Unknown J7Q-Nnbntxchmmntlxn CPT-4: 21059 Unknown M9V-Iguvnrxdmwjrjiw CPT-4: 72182 Unknown G5E-Iagyzghyijvdlxv CPT-4: 87630 Unknown B7R-Koflfagaxsztkxj CPT-4: 42114 Unknown Gynecology Referral SNOMED CT: 657763254 CPT-4: R14 Unknown Reason For Visit No Reason For Visit data Plan of Care Planned Activity Notes Codes Status Date Referral: Pending Gynecology Referral Information Referral Processed Referral: Pending Pulmonolog y Referral Information Referral Processed Referral: Pending Psychiatry Referral Information Referral Initiated Referral: Pending Respirator y Services Referral Information Referral Initiated Referral: Pending Ophthalmol ogy Referral Information Referral Initiated Referral: [facility]: [address] [place] [address] [address] Museum [employer]ician placed a call out to the patient to notify her that it has been recommended that she be seen by a urologist. Patient agreed to be seen, does not have a provider of choice and no transportation issues. Museum [employer] Technician faxed referral and clinical notes to [facility] in [place], [place] near the patient's home. Patient to [...] seen and prefers a provider in the [place] or [facility]. Museum Exhibit Technician placed a call out to everyone listed in the area and the only location that was able to accept the patient's insurance was [place] [address] [place] [address] and spoke with Maylin. Maylin asked that the patient's referral, face sheet and visit notes be faxed to . [employer]ician faxed over requested documents. Patient appointment confirmation letter generated and mailed to her home address. Patient to call to schedule an appointment. Processed Referral: [facility]: [address] [place] [address] [address] [id number] [place] Patient notified that it has been advised that she be seen by Neurology. Patient agreed to be seen and prefers to be seen by a provider in the [place], [place] area. Patient denies any concerns with transportation, and prefers to schedule her own appointment. Museum [employer] Technician placed a call out to [facility] and spoke with Neeraj P: who [...]
--- OUTSIDE RECORDS SUMMARY | 2023-12-07 02:17 | XMS_ITS | CCD ---
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 Ground Mixer Name Role Phone Palomo KING, Anna Primary Care Provider Unav ailable Unavailable Chronic Care Management Unavaila ble Summary Purpose DataExchange Insurance Providers Payer name Policy type / Coverage type Covered libertarian ID Effective Begin Date Effective End Date SUKI MAYO [id number] Unknown Unknown Family history Mother Diagnosis Age [...] Unknown Disability 05/31/[address]: 382244520 Has never s moked or chewed tobacco 05/31/[address]: 145355434 Never drinks alco hol 05/31/2018 Has the patient ever used illegal drugs? Unknown Has never used illegal drugs 05/31/2018 DNR Order/ Advanced Directive Unknown Full Code 05/31/2018 Allergies, Adverse Reactions, Alerts Substance Reaction Codes Entered Date Inactivated Date Status OxyContin itch, RxNorm: 328148 01/13/2021 No Inactive Da te Active *No [...] toe ICD-10: S90.416A ICD-9: 917.0 02/14/2020 Resolved [employer] eye ICD-10: H10.029 ICD-9: 372.03 12/29/2019 Resolved [...] unspecified ICD-10: R60.9 ICD-9: 782.3 07/11/2018 Active [facility] (current) use of non-steroidal anti-inflammatories (NSAID) ICD-10: Z79.1 ICD-9: V58.64 06/13/2018 Active Medications Medication Codes Instructions Start Date Stop Date Status Fill Instructions Heartburn Relief (famotidine) 10 mg tablet RxNorm: 105730 Take 1 Tablet(s) Oral QAM 08/07/20 21 2020 Inactive levothyroxine 50 mcg tablet RxNorm: 960021 Take 1 Tablet(s) Oral QD 08/07/20 21 2020 Inactive metformin 1,000 mg tablet RxNorm: 228807 1 Tablet(s) Oral two times a day 07/16/20 21 2021 Inactive Singulair 10 mg tablet RxNorm: 160133 TAKE (1) TABLET BY MOUTH DAILY 07/16/20 21 2020 Inactive lisinopril 2.5 mg tablet RxNorm: 598272 Take 1 Tablet(s) Oral every day 07/11/20 21 2020 Inactive hydrochlorothiazide 25 mg tablet RxNorm: 787941 Take 1 Tablet(s) Oral every day 06/12/20 21 2020 Inactive ondansetron 4 mg disintegrating tablet RxNorm: 632112 1 Tablet(s) Oral two times a day 06/10/20 21 2020 Inactive Sudafed 12 Hour 120 mg tablet,extended release RxNorm: 2464267 TAKE 1 TABLET BY MOUTH EVERY 12 HOURS NEEDED 06/01/20 21 2021 Inactive Heartburn Relief (famotidine) 10 mg tablet RxNorm: 278156 Take 1 Tablet(s) Oral every morning 05/07/20 21 2020 Inactive omeprazole 20 mg capsule,delayed release RxNorm: 932635 1 Capsule(s) Oral every evening 04/03/20 21 2020 Inactive sertraline 100 mg tablet RxNorm: 135278 2 Tablet(s) Oral every day 03/13/20 21 2020 Inactive levothyroxine 50 mcg tablet RxNorm: 533419 TAKE (1) TABLET BY MOUTH DAILY 02/04/20 21 2020 Inactive metformin 500 mg tablet RxNorm: 812766 1 Tablet(s) Oral two times a day take with 500mg to equal 1000mg 01/14/20 21 2020 Inactive gabapentin 300 mg capsule RxNorm: 256177 TAKE 1 CAPSULE BY MOUTH THREE TIMES A DAY 01/14/20 21 2020 Inactive lisinopril 2.5 mg tablet RxNorm: 303020 TAKE 1 TABLET BY MOUTH DAILY 01/06/20 21 2020 Inactive gabapentin 300 mg capsule RxNorm: 040968 TAKE 1 CAPSULE BY MOUTH THREE TIMES A DAY 01/06/20 21 2020 Inactive Singulair 10 mg tablet RxNorm: 019280 TAKE (1) TABLET BY MOUTH DAILY 01/06/20 21 2020 Inactive metformin 1,000 mg tablet RxNorm: 364529 1 Tablet(s) Oral two times a day 01/06/20 21 2020 Inactive atorvastatin 40 mg tablet RxNorm: 270691 1 Tablet(s) Oral every day 12/06/19 21 2020 Inactive omeprazole 20 mg capsule,delayed release RxNorm: 658317 1 Capsule(s) Oral every evening 11/24/19 21 2020 Inactive famotidine 10 mg tablet RxNorm: 188806 1 Tablet(s) Oral every morning 11/24/19 21 2020 Inactive Alcohol Prep Pads RxNorm: 468719 USE EACH MORNING 10/14/19 21 2020 Inactive omeprazole 20 mg capsule,delayed release RxNorm: 735016 1 Capsule(s) Oral two times a day 10/13/19 21 2021 Inactive omeprazole 20 mg capsule,delayed release RxNorm: 534376 TAKE 1 CAPSULE BY MOUTH EVERY DAY 10/08/192021 Inactive Macrobid 100 mg capsule RxNorm: 297186 1 Capsule(s) Oral every 12 hours with food 10/01/202020 Inactive omeprazole 20 mg capsule,delayed release RxNorm: 403997 1 Capsule(s) Oral two times a day 09/24/20 20 2021 Inactive metformin 1,000 mg tablet RxNorm: 202467 1 Tablet(s) Oral two times a day 08/19/20 20 2020 Inactive start on September 11, 2020 metformin 500 mg tablet RxNorm: 477150 1 Tablet(s) Oral two times a day take with 500mg to equal 1000mg 08/19/20 20 2019 Inactive gabapentin 300 mg capsule RxNorm: 040249 TAKE 1 CAPSULE BY MOUTH THREE TIMES DAILY 07/11/20 20 2020 Inactive cetirizine 10 mg tablet RxNorm: 6304024 TAKE (1) TABLET BY MOUTH DAILY 07/11/20 20 2020 Inactive metformin 500 mg tablet RxNorm: 364520 1 Tablet(s) Oral two times a day 07/08/20 20 2019 Inactive loperamide 2 mg tablet RxNorm: 614968 1 Tablet(s) Oral as needed take one tablet after each loose stool, maximum of 8 tablets in 24 hours 06/24/20 20 2021 Inactive Sudafed 12 Hour 120 mg tablet,extended release RxNorm: 8123942 TAKE 1 TABLET BY MOUTH EVERY 12 HOURS NEEDED 06/11/20 20 2019 Inactive hydrochlorothiazide 25 mg tablet RxNorm: 307823 TAKE (1) TABLET BY MOUTH EVERY DAY 06/11/20 20 2019 Inactive omeprazole 20 mg capsule,delayed release RxNorm: 639657 TAKE 1 CAPSULE BY MOUTH EVERY DAY 05/14/20 20 2020 Inactive metformin 500 mg tablet RxNorm: 690162 1 Tablet(s) Oral every day 05/12/20 20 2019 Inactive True Metrix Glucose Test Strip RxNorm: 1 Test Strips Miscellaneous two times a day as needed 04/17/20 No Stop Date Active metformin 500 mg tablet RxNorm: 727183 1 Tablet(s) Oral every day 04/17/20 20 2019 Inactive diclofenac sodium 75 mg tablet,delayed release RxNorm: 803090 1 Tablet(s) PO BID 04/14/20 20 2021 Inactive This refill negates all other refills of this medication Sudafed 12 Hour 120 mg tablet,extended release RxNorm: 9391832 TAKE 1 TABLET BY MOUTH EVERY 12 HOURS NEEDED 03/14/20 20 2019 Inactive True Metrix Glucose Test Strip RxNorm: 1 Test Strips Miscellaneous every morning 03/13/20 20 2019 Inactive 100/container True Metrix Glucose Test Strip RxNorm: 1 Test Strips Miscellaneous QAM 02/22/20 20 2019 Inactive 100/container loperamide 2 mg tablet RxNorm: 272443 1 Tablet(s) Oral as needed take one tablet after each loose stool, maximum of 8 tablets in 24 hours 02/22/20 20 2019 Inactive cetirizine 10 mg tablet RxNorm: 1037086 1 Tablet(s) PO daily 01/17/20 20 2019 Inactive loperamide 2 mg tablet RxNorm: 249617 1 Tablet(s) Oral as needed take one tablet after each loose stool, maximum of 8 tablets in 24 hours 01/17/20 20 2019 Inactive quetiapine 100 mg tablet RxNorm: 319861 1 Tablet(s) Oral every night at bedtime 01/17/20 20 2019 Inactive levothyroxine 50 mcg tablet RxNorm: 791068 1 Tablet(s) PO daily 01/17/20 20 2020 Inactive gabapentin 300 mg capsule RxNorm: 200149 1 Capsule(s) PO TID 01/17/20 20 2019 Inactive levothyroxine 50 mcg tablet RxNorm: 014825 1 Tablet(s) PO daily 01/15/20 20 2019 Inactive lisinopril 2.5 mg tablet RxNorm: 891466 1 Tablet(s) PO daily 01/15/20 20 2020 Inactive gabapentin 300 mg capsule RxNorm: 180585 1 Capsule(s) PO TID 01/15/20 20 2019 Inactive cetirizine 10 mg tablet RxNorm: 0058185 1 Tablet(s) PO daily 01/15/20 20 2019 Inactive Singulair 10 mg tablet RxNorm: 195598 1 Tablet(s) PO daily 01/15/20 20 2020 Inactive gentamicin 0.3 % eye drops RxNorm: 406829 1 Drop(s) ophthalmic (eye) four times a day 12/29/19 20 2019 Inactive gentamicin 0.3 % eye drops RxNorm: 468516 1 Drop(s) ophthalmic (eye) four times a day 12/29/19 20 2019 Inactive gentamicin 0.3 % eye drops RxNorm: 331522 1 Drop(s) ophthalmic (eye) four times a day 12/29/19 20 2019 Inactive hydrochlorothiazide 25 mg tablet RxNorm: 100416 1 Tablet(s) Oral every day 12/21/19 20 2019 Inactive Sudafed 12 Hour 120 mg tablet,extended release RxNorm: 7980683 TAKE (1) TABLET BY MOUTH EVERY 12 HOURS NEEDED 12/21/19 20 2019 Inactive loperamide 2 mg tablet RxNorm: 938120 1 Tablet(s) Oral as needed take one tablet after each loose stool, maximum of 8 tablets in 24 hours 12/11/19 20 2019 Inactive loperamide 2 mg tablet RxNorm: 020221 1 Tablet(s) Oral as needed take one tablet after each loose stool, maximum of 8 tablets in 24 hours 12/11/19 20 2019 Inactive atorvastatin 40 mg tablet RxNorm: 290335 1 Tablet(s) Oral every day 11/29/19 20 2020 Inactive quetiapine 100 mg tablet RxNorm: 346728 1 Tablet(s) Oral every night at bedtime 11/28/19 20 2019 Inactive sertraline 100 mg tablet RxNorm: 139630 1 Tablet(s) Oral 11/28/19 20 2019 Inactive omeprazole 20 mg capsule,delayed release RxNorm: 548522 1 Capsule(s) Oral every day 11/20/19 20 2019 Inactive amoxicillin 250 mg capsule RxNorm: 387312 1 Capsule(s) Oral three times a day 11/07/19 20 2019 Inactive multivitamin with iron-mineral tablet RxNorm: 1 Tablet(s) Oral every day 10/29/19 20 2021 Inactive cetirizine 10 mg tablet RxNorm: 1946872 1 Tablet(s) PO daily 10/20/19 20 2019 Inactive This refill negates all other refills of this medication. Please do not auto refill Singulair 10 mg tablet RxNorm: 286831 1 Tablet(s) PO daily 10/20/19 20 2019 Inactive This refill negates all other refills of this medication gabapentin 300 mg capsule RxNorm: 272898 1 Capsule(s) PO TID 10/20/19 20 2019 Inactive lisinopril 2.5 mg tablet RxNorm: 741574 1 Tablet(s) PO daily 10/20/19 20 2019 Inactive levothyroxine 50 mcg tablet RxNorm: 427094 1 Tablet(s) PO daily 10/20/19 20 2019 Inactive This refill negates all other refills of this medication fenugreek seed extract 500 mg capsule RxNorm: 1 Capsule(s) Oral three times a day 10/17/19 20 2021 Inactive hydrochlorothiazide 25 mg tablet RxNorm: 772832 1 Tablet(s) Oral every day 10/17/19 20 2019 Inactive Alcohol Prep Pads RxNorm: 135503 1 Patch TOP QAM 10/16/19 20 2020 Inactive loperamide 2 mg tablet RxNorm: 069444 1 Tablet(s) Oral as needed take one [...] 2019 Inactive hydrochlorothiazide 25 mg tablet RxNorm: 201475 1 Tablet(s) Oral every day 09/19/20 19 2019 Inactive Sudafed 12 Hour 120 mg tablet,extended release RxNorm: 5571913 1 Tablet(s) Oral every 12 hours as needed 09/11/20 19 2018 Inactive omeprazole 20 mg capsule,delayed release RxNorm: 379664 1 Capsule(s) Oral every day 09/07/20 19 2019 Inactive Sudafed 12 Hour 120 mg tablet,extended release RxNorm: 5715485 1 Tablet(s) Oral every 12 hours as needed 09/04/20 19 2018 Inactive pantoprazole 40 mg tablet,delayed release RxNorm: 500703 1 Tablet(s) Oral every day 08/24/20 19 2018 Inactive discontinue any other H2Blkr. and PPI albuterol sulfate 2.5 mg/3 mL (0.083 %) solution for nebulization RxNorm: 478962 1 Vial Inhalation every four hours as needed as needed for dyspnea 08/17/20 19 2019 Inactive 60/box. This refill negates all other refills of this medication. Please do not fill early. Please do not auto refill. Symbicort 160 mcg-4.5 mcg/actuation HFA aerosol inhaler RxNorm: 6561819 2 Puff(s) INH BID 08/17/20 No Stop Date Active Alcohol Prep Pads RxNorm: 343168 1 Patch TOP QAM 08/17/20 19 2019 Inactive Ventolin HFA 90 mcg/actuation aerosol inhaler RxNorm: 267132 2 Puff(s) INH QID 08/09/20 19 2019 Inactive Please do not fill early. Please do not auto refill. This refill negates all other refills of this medication True Metrix Glucose Test Strip RxNorm: 1 Test Strips Miscellaneous QAM 08/09/20 19 2019 Inactive 100/container atorvastatin 40 mg tablet RxNorm: 793867 1 Tablet(s) Oral every day 07/04/20 19 2019 Inactive levmetamfetamine 50 mg nasal inhaler RxNorm: 1 Unit(s) NASAL Q3-4H Do not use more than every 3 hours or 8 times/24hours 06/26/20 19 2021 Inactive Please do not auto refill. This refill negates all other refills of this medication buspirone 7.5 mg tablet RxNorm: 759194 1 Tablet(s) PO BID 06/26/20 19 2020 Inactive This refill negates all other refills of this medication hydrochlorothiazide 12.5 mg tablet RxNorm: 570594 1 Tablet(s) PO QAM 06/26/20 19 2019 Inactive Ventolin HFA 90 mcg/actuation aerosol inhaler RxNorm: 476229 2 Puff(s) INH QID 06/26/20 19 2018 Inactive Please do not fill early. Please do not auto refill. This refill negates all other refills of this medication Singulair 10 mg tablet RxNorm: 404641 1 Tablet(s) PO daily 06/26/20 19 2019 Inactive This refill negates all other refills of this medication cetirizine 10 mg tablet RxNorm: 8759947 1 Tablet(s) PO daily 06/26/20 19 2019 Inactive This refill negates all other refills of this medication. Please do not auto refill levothyroxine 50 mcg tablet RxNorm: 437411 1 Tablet(s) PO daily 06/26/20 19 2019 Inactive This refill negates all other refills of this medication diclofenac sodium 75 mg tablet,delayed release RxNorm: 739438 1 Tablet(s) PO BID 06/26/20 19 2019 Inactive This refill negates all other refills of this medication ranitidine 150 mg tablet RxNorm: 426062 1 Tablet(s) PO BID 06/26/20 19 2018 Inactive This refill negates all other refills of this medication Calcium 600-D3 Plus (mag-zinc) 600 mg calcium-800 unit-50 mg tablet RxNorm: 1 Tablet(s) PO daily take an additonal tablet for itching. 06/26/20 19 2018 Inactive This refill negates all other refills of this medication albuterol sulfate 2.5 mg/3 mL (0.083 %) solution for nebulization RxNorm: 902644 1 Vial INH QID 06/26/20 19 2018 Inactive 60/box. This refill negates all other refills of this medication. Please do not fill early. Please do not auto refill. lisinopril 2.5 mg tablet RxNorm: 939780 1 Tablet(s) PO daily 06/21/20 19 2019 Inactive gabapentin 300 mg capsule RxNorm: 171254 1 Capsule(s) PO TID 06/21/20 19 2019 Inactive atorvastatin 20 mg tablet RxNorm: 152651 1 Tablet(s) PO QHS 06/07/20 19 2018 Inactive This refill negates all other refills of this medication TRUEplus Lancets 30 gauge RxNorm: 1 Lancets Miscellaneous QAM 05/29/20 19 2018 Inactive 100/box gabapentin 300 mg capsule RxNorm: 037522 1 Capsule(s) PO TID 05/03/20 19 2018 Inactive Flnickolas Complete (iron) 18 mg iron chewable tablet RxNorm: 1 Tablet(s) PO daily 04/04/20 19 2021 Inactive This refill negates all other refills of this medication gabapentin 300 mg capsule RxNorm: 806738 1 Capsule(s) PO TID as needed 02/01/20 19 2018 Inactive True Metrix Glucose Test Strip RxNorm: 1 Test Strips Miscellaneous QAM 02/01/20 19 2018 Inactive 100/container Alcohol Prep Pads RxNorm: 394995 1 Patch TOP QAM 02/01/20 19 2018 Inactive TRUEplus Lancets 30 gauge RxNorm: 1 Lancets Miscellaneous QAM 02/01/20 19 2018 Inactive 100/box lisinopril 2.5 mg tablet RxNorm: 210380 1 Tablet(s) PO daily 12/28/19 19 2018 Inactive ranitidine 150 mg tablet RxNorm: 971676 1 Tablet(s) PO BID 10/21/19 19 2018 Inactive This refill negates all other refills of this medication albuterol sulfate 2.5 mg/3 mL (0.083 %) solution for nebulization RxNorm: 042169 1 Vial INH QID 10/21/192018 Inactive 60/box. [...] this medication gabapentin 300 mg capsule RxNorm: 938993 1 Capsule(s) PO TID as needed 10/21/19 19 2018 Inactive atorvastatin 20 mg tablet RxNorm: 483957 1 Tablet(s) PO QHS 10/21/19 19 2018 Inactive This refill negates all other refills of this medication trazodone 50 mg tablet RxNorm: 863204 1 Tablet(s) PO QHS 10/21/19 19 2018 Inactive This refill negates all other refills of this medication Ventolin HFA 90 mcg/actuation aerosol inhaler RxNorm: 808228 2 Puff(s) INH QID 10/21/192018 Inactive Please do not fill early. Please do not auto refill. This refill negates all other refills of this medication Calcium 600-D3 Plus 600 mg calcium-800 unit-50 mg tablet RxNorm: 1 Tablet(s) PO daily take an additonal tablet for itching. 10/21/19 19 2018 Inactive This refill negates all other refills of this medication Singulair 10 mg tablet RxNorm: 836150 1 Tablet(s) PO daily 10/21/192018 Inactive This refill negates all other refills of this medication buspirone 7.5 mg tablet RxNorm: 492136 1 Tablet(s) PO BID 10/21/192018 Inactive This refill negates all other refills of this medication diclofenac sodium 75 mg tablet,delayed release RxNorm: 036303 1 Tablet(s) PO BID 10/21/192018 Inactive This refill negates all other refills of this medication hydrochlorothiazide 12.5 mg tablet RxNorm: 256898 1 Tablet(s) PO QAM 10/21/192018 Inactive metoprolol succinate ER 50 mg tablet,extended release 24 hr RxNorm: 646730 1 Tablet(s) PO daily 10/21/192018 Inactive This refill negates all other refills of this medication levothyroxine 50 mcg tablet RxNorm: 697382 1 Tablet(s) PO daily 10/21/19 19 2018 Inactive This refill negates all other refills of this medication cetirizine 10 mg tablet RxNorm: 7138791 1 Tablet(s) PO daily 10/21/19 19 2018 Inactive This refill negates all other refills of this medication. Please do not auto refill Flintstones Complete (iron) 18 mg iron chewable tablet RxNorm: 1 Tablet(s) PO daily 10/21/19 19 2018 Inactive This refill negates all other refills of this medication buspirone 7.5 mg tablet RxNorm: 898041 1 Tablet(s) PO BID 10/12/19 19 2018 Inactive cetirizine 10 mg tablet RxNorm: 2496470 1 Tablet(s) PO daily 09/28/20 18 2018 Inactive Guaiasorb DM 10 mg-100 mg/5 mL oral liquid RxNorm: 539881 10 Milliliter(s) PO As needed every 4 hr 09/24/20 18 2018 Inactive Vicks Vaporub 4.7 %-1.2 %-2.6 % topical ointment RxNorm: 5438632 1 Application TOP TID 09/24/20 18 2018 Inactive levmetamfetamine 50 mg nasal inhaler RxNorm: 1 Unit(s) NASAL Q3-4H 09/24/20 18 2017 Inactive sertraline 50 mg tablet RxNorm: 203606 1 Tablet(s) PO daily 09/09/20 18 2018 Inactive Please note dose trazodone 50 mg tablet RxNorm: 527181 1 Tablet(s) PO QHS 09/06/20 18 2018 Inactive sertraline 50 mg tablet RxNorm: 541438 1 Tablet(s) PO daily 09/06/20 18 2017 Inactive amoxicillin 500 mg tablet RxNorm: 088093 1 Tablet(s) PO Q12H 08/31/20 18 2017 Inactive albuterol sulfate 2.5 mg/3 mL (0.083 %) solution for nebulization RxNorm: 827075 1 Vial INH QID 11/08/2018 Inactive 60/box. Please do not fill early. Please do not auto refill. Prozac 10 mg capsule RxNorm: 687993 1 Capsule(s) PO daily 08/09/20 18 2017 Inactive buspirone 7.5 mg tablet RxNorm: 126508 1 Tablet(s) PO BID 08/09/20 18 2018 Inactive gabapentin 300 mg capsule RxNorm: 743113 1 Capsule(s) PO TID as needed 08/01/20 18 2018 Inactive hydrochlorothiazide 12.5 mg tablet RxNorm: 123784 1 Tablet(s) PO QAM 08/01/20 18 2018 Inactive ranitidine 150 mg tablet RxNorm: 912871 1 Tablet(s) PO BID 08/01/20 18 2018 Inactive Macrobid 100 mg capsule RxNorm: 664735 1 Capsule(s) PO Q12H 06/21/20 18 2017 Inactive Singulair 10 mg tablet RxNorm: 755867 1 Tablet(s) PO daily 06/14/20 18 2018 Inactive Ventolin HFA 90 mcg/actuation aerosol inhaler RxNorm: 4530172 2 Puff(s) INH QID 06/14/20 18 2018 Inactive Singulair 10 mg tablet RxNorm: 043394 1 Tablet(s) PO daily 06/14/20 18 2017 Inactive buspirone 7.5 mg tablet RxNorm: 651632 1 Tablet(s) PO BID 06/14/20 18 2017 Inactive Prozac 10 mg capsule RxNorm: 895774 1 Capsule(s) PO daily 06/14/20 18 2017 Inactive Neilmed Pediatric Sinus Rinse Refill packet RxNorm: 1 Unit Dose NASAL PRN 05/31/20 18 2021 Inactive diclofenac sodium 75 mg tablet,delayed release RxNorm: 386135 1 Tablet(s) PO BID 05/31/20 18 2017 Inactive lisinopril 2.5 mg tablet RxNorm: 272779 1 Tablet(s) PO daily 05/31/20 18 2017 Inactive metoprolol succinate ER 50 mg tablet,extended release 24 hr RxNorm: 718296 1 Tablet(s) PO daily 05/31/20 18 2017 Inactive levothyroxine 50 mcg tablet RxNorm: 502401 1 Tablet(s) PO daily 05/31/20 18 2017 Inactive TRUEplus Lancets 30 gauge RxNorm: 1 Lancets Miscellaneous QAM 05/31/20 18 2017 Inactive 100/box Ventolin HFA 90 mcg/actuation aerosol inhaler RxNorm: 728072 2 Puff(s) INH QID 05/31/20 18 2017 Inactive Aleve 220 mg capsule RxNorm: 3185163 1 Capsule(s) PO BID 05/31/20 18 2018 Inactive ranitidine 150 mg tablet RxNorm: 547663 1 Tablet(s) PO BID 05/31/20 18 2017 Inactive gabapentin 300 mg capsule RxNorm: 189319 1 Capsule(s) PO TID as needed 05/31/20 18 2017 Inactive atorvastatin 20 mg tablet RxNorm: 693785 1 Tablet(s) PO QHS 05/31/20 18 2017 Inactive True Metrix Glucose Test Strip RxNorm: 1 Test Strips [facility] 05/31/20 18 2017 Inactive 50/container Calcium 600-D3 Plus 600 mg calcium-800 unit-50 mg tablet RxNorm: 1 Tablet(s) PO daily take an additonal tablet for itching. 05/31/20 18 2017 Inactive hydrochlorothiazide 12.5 mg tablet RxNorm: 308296 1 Tablet(s) PO QAM 05/31/20 18 2017 Inactive Flintstones Complete (iron) 18 mg iron chewable tablet RxNorm: 1 Tablet(s) PO daily 05/31/20 18 2017 Inactive d-mannose oral powder RxNorm: PO 18 2021 Inactive True Metrix Glucose Meter RxNorm: miscellaneous 08/17/20 19 2018 Inactive sertraline 50 mg tablet RxNorm: 030044 1 Tablet(s) PO daily 11/28/19 20 2019 Inactive loperamide 2 mg tablet RxNorm: 205900 oral 09/29/20 19 2018 Inactive Symbicort 160 mcg-4.5 mcg/actuation HFA aerosol inhaler RxNorm: 1626169 2 Puff(s) INH BID 08/17/20 19 2018 Inactive Medication Administered No Medication Administered data Procedures Procedure Codes Date Frailty Screening CPT-4: SFD 05/20/2021 Hypertension CPT-4: HTN 04/01/2021 Tobacco Assessment/Screening CPT-4: TCA 08/2021 Patient Health Questionnaire CPT-4: DPHQ 08/2021 Mini Mental State Exam CPT-4: DMMA Annual Wellness Visit (Subsequent Visit) CPT-4: G0439 01/13/2021 Advanced Care Planning CPT-4: VACP Fall Risk Assessment SNOMED CT: 25202660 4 CPT-4: DFRA 01/13/2021 [place] Fany Assessment CPT-4: DSWA 12/01 Urinalysis, dip stick CPT-4: 34479 09/24/2020 Patient Health Questionnaire CPT-4: DPHQ Electrocardiogram CPT-4: 01308 05/14/2020 Tobacco Assessment/Screening CPT-4: TCA Fall Risk Assessment SNOMED CT: 68807340 4 CPT-4: DFRA 01/01/2020 Functional Assessment CPT-4: DFA 01/01/2020 Bogata Fany Assessment CPT-4: DSWA 11/04 Patient Health Questionnaire CPT-4: DPHQ [place] Fany Assessment CPT-4: DSWA 10/03 Hypertension CPT-4: HTN 10/17/2019 Fall Risk Assessment SNOMED CT: 74904638 4 CPT-4: DFRA 09/19/2019 Functional Assessment CPT-4: DFA 09/19/2019 Urinalysis, dip stick CPT-4: 56342 06/21/2019 Tobacco Assessment/Screening CPT-4: TCA Patient Health Questionnaire CPT-4: DPHQ AHA/REBECCA Classification Assessment CPT-4: DAHA 04/25/2019 Controlled Substance Report CPT-4: CTRSU 04/03 Urinalysis, dip stick CPT-4: 12825 03/28/2019 Urinalysis, dip stick CPT-4: 33760 03/28/2019 N3N-Woavjsvnvxtihya CPT-4: 72118 Unknown Y5C-Vuabvdkmjruzyop CPT-4: 79868 Unknown L2R-Uwemiiwlobyjmkr CPT-4: 60871 Unknown C7X-Hxmrdbmnsofpsbe CPT-4: 09113 Unknown S8G-Kyixzgsphszyugj CPT-4: 54440 Unknown Q7M-Loquhihesijammr CPT-4: 38168 Unknown B5O-Kjqmipwokxxopzd CPT-4: 76196 Unknown Gynecology Referral SNOMED CT: 098441045 CPT-4: R14 Unknown Reason For Visit No Reason For Visit data Plan of Care Planned Activity Notes Codes Status Date Referral: Pending Gynecology Referral Information Referral Processed Referral: Pending Pulmonolog y Referral Information Referral Processed Referral: Pending Psychiatry Referral Information Referral Initiated Referral: Pending Respirator y Services Referral Information Referral Initiated Referral: Pending Ophthalmol ogy Referral Information Referral Initiated Referral: [facility] WPtel: [address] [place] [address] Industrial Electrical Technician placed a call out to the patient to notify her that it has been recommended that she be seen by a urologist. Patient agreed to be seen, does not have a provider of choice and no transportation issues. Industrial Electrical Technician faxed referral and clinical notes to [facility] in [place], [place] near the patient's home. [...] seen and prefers a provider in the [place] or [place] area. Industrial Electrical Technician placed a call out to everyone listed in the area and the only location that was able to accept the patient's insurance was [place] [address] [place] [address] and spoke with Maylin. Maylin asked that the patient's referral, face sheet and visit notes be faxed to . Industrial Electrical Technician faxed over requested documents. Patient appointment confirmation letter generated and mailed to her home address. Patient to call to schedule an appointment. Processed Referral: [facility] Neurolog y WPtel: [phone] [facility] [address] [place], [place] [id number] Patient notified that it has been advised that she be seen by Neurology. Patient agreed to be seen and prefers to be seen by a provider in the [place], [place] area. Patient denies any concerns with transportation, and prefers to schedule her own appointment. Industrial Electrical Technician placed a call out to [facility] and spoke with [...]
--- OUTSIDE RECORDS SUMMARY | 2023-12-07 02:17 | XMS_ITS | CCD ---
Author Name Leena Culver NP Address [address] [place] [address] [place] [id number] Phone Organization [facility] Phone Care Team Providers Care Immigration Judge Name Role Phone Anna Culver NP Primary Care Provider Unav ailable Unavailable Chronic Care Management Unavaila ble Summary Purpose DataExchange Insurance Providers Payer name Policy type / Coverage type Covered republican ID Effective Begin Date Effective End Date SUKI MAYO [id number] Unknown Unknown Family history Mother Diagnosis Age [...] Unknown Disability 05/31/[address]: 357499210 Has never s moked or chewed tobacco 05/31/[address]: 249206015 Never drinks alco hol 05/31/2018 Has the patient ever used illegal drugs? Unknown Has never used illegal drugs 05/31/2018 DNR Order/ Advanced Directive Unknown Full Code 05/31/2018 Allergies, Adverse Reactions, Alerts Substance Reaction Codes Entered Date Inactivated Date Status OxyContin itch, RxNorm: 409101 01/13/2021 No Inactive Da te Active *No [...] toe ICD-10: S90.416A ICD-9: 917.0 02/14/2020 Resolved [place] eye ICD-10: H10.029 ICD-9: 372.03 12/29/2019 Resolved [...] 12 Hour 120 mg tablet,extended release RxNorm: 3347499 TAKE 1 TABLET BY MOUTH EVERY 12 HOURS NEEDED 06/01/20 21 2021 Inactive Heartburn Relief (famotidine) 10 mg tablet RxNorm: 551224 Take 1 Tablet(s) Oral every morning 05/07/20 21 2020 Inactive omeprazole 20 mg capsule,delayed release RxNorm: 692879 1 Capsule(s) Oral every evening 04/03/20 21 2020 Inactive sertraline 100 mg tablet RxNorm: 199629 2 Tablet(s) Oral every day 03/13/20 21 2020 Inactive levothyroxine 50 mcg tablet RxNorm: 187085 TAKE (1) TABLET BY MOUTH DAILY 02/04/20 21 2020 Inactive metformin 500 mg tablet RxNorm: 810064 1 Tablet(s) Oral two times a day take with 500mg to equal 1000mg 01/14/20 21 2020 Inactive gabapentin 300 mg capsule RxNorm: 839584 TAKE 1 CAPSULE BY MOUTH THREE TIMES A DAY 01/14/20 21 2020 Inactive lisinopril 2.5 mg tablet RxNorm: 960789 TAKE 1 TABLET BY MOUTH DAILY 01/06/20 21 2020 Inactive gabapentin 300 mg capsule RxNorm: 322957 TAKE 1 CAPSULE BY MOUTH THREE TIMES A DAY 01/06/20 21 2020 Inactive Singulair 10 mg tablet RxNorm: 434643 TAKE (1) TABLET BY MOUTH DAILY 01/06/20 21 2020 Inactive metformin 1,000 mg tablet RxNorm: 839948 1 Tablet(s) Oral two times a day 01/06/20 21 2020 Inactive atorvastatin 40 mg tablet RxNorm: 269859 1 Tablet(s) Oral every day 12/06/19 21 2020 Inactive omeprazole 20 mg capsule,delayed release RxNorm: 838210 1 Capsule(s) Oral every evening 11/24/19 21 2020 Inactive famotidine 10 mg tablet RxNorm: 762751 1 Tablet(s) Oral every morning 11/24/19 21 2020 Inactive Alcohol Prep Pads RxNorm: 566307 USE EACH MORNING 10/14/19 21 2020 Inactive omeprazole 20 mg capsule,delayed release RxNorm: 986093 1 Capsule(s) Oral two times a day 10/13/19 21 2021 Inactive omeprazole 20 mg capsule,delayed release RxNorm: 720056 TAKE 1 CAPSULE BY MOUTH EVERY DAY 10/08/192021 Inactive Macrobid 100 mg capsule RxNorm: 266000 1 Capsule(s) Oral every 12 hours with food 10/01/202020 Inactive omeprazole 20 mg capsule,delayed release RxNorm: 489718 1 Capsule(s) Oral two times a day 09/24/202021 Inactive metformin 1,000 mg tablet RxNorm: 556493 1 Tablet(s) Oral two times a day 08/19/202020 Inactive start on September 11, 2020 metformin 500 mg tablet RxNorm: 494444 1 Tablet(s) Oral two times a day take with 500mg to equal 1000mg 08/19/20 20 2019 Inactive gabapentin 300 mg capsule RxNorm: 223058 TAKE 1 CAPSULE BY MOUTH THREE TIMES DAILY 07/11/20 20 2020 Inactive cetirizine 10 mg tablet RxNorm: 3051770 TAKE (1) TABLET BY MOUTH DAILY 07/11/20 20 2020 Inactive metformin 500 mg tablet RxNorm: 702000 1 Tablet(s) Oral two times a day 07/08/20 20 2019 Inactive loperamide 2 mg tablet RxNorm: 281276 1 Tablet(s) Oral as needed take one tablet after each loose stool, maximum of 8 tablets in 24 hours 06/24/202021 Inactive Sudafed 12 Hour 120 mg tablet,extended release RxNorm: 8599083 TAKE 1 TABLET BY MOUTH EVERY 12 HOURS NEEDED 06/11/20 20 2019 Inactive hydrochlorothiazide 25 mg tablet RxNorm: 614442 TAKE (1) TABLET BY MOUTH EVERY DAY 06/11/202019 Inactive omeprazole 20 mg capsule,delayed release RxNorm: 723676 TAKE 1 CAPSULE BY MOUTH EVERY DAY 05/14/20 2020 Inactive metformin 500 mg tablet RxNorm: 981425 1 Tablet(s) Oral every day 05/12/20 20 2019 Inactive True Metrix Glucose Test Strip RxNorm: 1 Test Strips Miscellaneous two times a day as needed 04/17/20 No Stop Date Active metformin 500 mg tablet RxNorm: 876107 1 Tablet(s) Oral every day 04/17/20 20 2019 Inactive diclofenac sodium 75 mg tablet,delayed release RxNorm: 844519 1 Tablet(s) PO BID 04/14/20 20 2021 Inactive This refill negates all other refills of this medication Sudafed 12 Hour 120 mg tablet,extended release RxNorm: 7954523 TAKE 1 TABLET BY MOUTH EVERY 12 HOURS NEEDED 03/14/20 20 2019 Inactive True Metrix Glucose Test Strip RxNorm: 1 Test Strips Miscellaneous every morning 03/13/20 20 2019 Inactive 100/container True Metrix Glucose Test Strip RxNorm: 1 Test Strips Miscellaneous QAM 02/22/20 20 2019 Inactive 100/container loperamide 2 mg tablet RxNorm: 302949 1 Tablet(s) Oral as needed take one tablet after each loose stool, maximum of 8 tablets in 24 hours 02/22/20 20 2019 Inactive cetirizine 10 mg tablet RxNorm: 1669012 1 Tablet(s) PO daily 01/17/20 20 2019 Inactive loperamide 2 mg tablet RxNorm: 109168 1 Tablet(s) Oral as needed take one tablet after each loose stool, maximum of 8 tablets in 24 hours 01/17/20 20 2019 Inactive quetiapine 100 mg tablet RxNorm: 581609 1 Tablet(s) Oral every night at bedtime 01/17/20 20 2019 Inactive levothyroxine 50 mcg tablet RxNorm: 666024 1 Tablet(s) PO daily 01/17/20 20 2020 Inactive gabapentin 300 mg capsule RxNorm: 823746 1 Capsule(s) PO TID 01/17/20 20 2019 Inactive levothyroxine 50 mcg tablet RxNorm: 188675 1 Tablet(s) PO daily 01/15/20 20 2019 Inactive lisinopril 2.5 mg tablet RxNorm: 126111 1 Tablet(s) PO daily 01/15/20 20 2020 Inactive gabapentin 300 mg capsule RxNorm: 521077 1 Capsule(s) PO TID 01/15/20 20 2019 Inactive cetirizine 10 mg tablet RxNorm: 7240928 1 Tablet(s) PO daily 01/15/20 20 2019 Inactive Singulair 10 mg tablet RxNorm: 640036 1 Tablet(s) PO daily 01/15/20 20 2020 Inactive gentamicin 0.3 % eye drops RxNorm: 587086 1 Drop(s) ophthalmic (eye) four times a day 12/29/19 20 2019 Inactive gentamicin 0.3 % eye drops RxNorm: 397464 1 Drop(s) ophthalmic (eye) four times a day 12/29/19 20 2019 Inactive gentamicin 0.3 % eye drops RxNorm: 947433 1 Drop(s) ophthalmic (eye) four times a day 12/29/19 20 2019 Inactive hydrochlorothiazide 25 mg tablet RxNorm: 755687 1 Tablet(s) Oral every day 12/21/19 20 2019 Inactive Sudafed 12 Hour 120 mg tablet,extended release RxNorm: 3573450 TAKE (1) TABLET BY MOUTH EVERY 12 HOURS NEEDED 12/21/19 20 2019 Inactive loperamide 2 mg tablet RxNorm: 938693 1 Tablet(s) Oral as needed take one tablet after each loose stool, maximum of 8 tablets in 24 hours 12/11/19 20 2019 Inactive loperamide 2 mg tablet RxNorm: 872530 1 Tablet(s) Oral as needed take one tablet after each loose stool, maximum of 8 tablets in 24 hours 12/11/19 20 2019 Inactive atorvastatin 40 mg tablet RxNorm: 979713 1 Tablet(s) Oral every day 11/29/19 20 2020 Inactive quetiapine 100 mg tablet RxNorm: 818081 1 Tablet(s) Oral every night at bedtime 11/28/19 20 2019 Inactive sertraline 100 mg tablet RxNorm: 035921 1 Tablet(s) Oral 11/28/19 20 2019 Inactive omeprazole 20 mg capsule,delayed release RxNorm: 075597 1 Capsule(s) Oral every day 11/20/19 20 2019 Inactive amoxicillin 250 mg capsule RxNorm: 222349 1 Capsule(s) Oral three times a day 11/07/192019 Inactive multivitamin with iron-mineral tablet RxNorm: 1 Tablet(s) Oral every day 10/29/19 20 2021 Inactive cetirizine 10 mg tablet RxNorm: 1104620 1 Tablet(s) PO daily 10/20/192019 Inactive This refill negates all other refills of this medication. Please do not auto refill Singulair 10 mg tablet RxNorm: 869570 1 Tablet(s) PO daily 10/20/192019 Inactive This refill negates all other refills of this medication gabapentin 300 mg capsule RxNorm: 209898 1 Capsule(s) PO TID 10/20/192019 Inactive lisinopril 2.5 mg tablet RxNorm: 728062 1 Tablet(s) PO daily 10/20/192019 Inactive levothyroxine 50 mcg tablet RxNorm: 674824 1 Tablet(s) PO daily 10/20/192019 Inactive This refill negates all other refills of this medication fenugreek seed extract 500 mg capsule RxNorm: 1 Capsule(s) Oral three times a day 10/17/192021 Inactive hydrochlorothiazide 25 mg tablet RxNorm: 906235 1 Tablet(s) Oral every day 10/17/19 20 2019 Inactive Alcohol Prep Pads RxNorm: 216555 1 Patch TOP QAM 10/16/19 20 2020 Inactive loperamide 2 mg tablet RxNorm: 060432 1 Tablet(s) Oral as needed take one [...] 2019 Inactive hydrochlorothiazide 25 mg tablet RxNorm: 061311 1 Tablet(s) Oral every day 09/19/20 19 2019 Inactive Sudafed 12 Hour 120 mg tablet,extended release RxNorm: 9166742 1 Tablet(s) Oral every 12 hours as needed 09/11/20 19 2018 Inactive omeprazole 20 mg capsule,delayed release RxNorm: 753558 1 Capsule(s) Oral every day 09/07/20 19 2019 Inactive Sudafed 12 Hour 120 mg tablet,extended release RxNorm: 6904424 1 Tablet(s) Oral every 12 hours as needed 09/04/20 19 2018 Inactive pantoprazole 40 mg tablet,delayed release RxNorm: 403168 1 Tablet(s) Oral every day 08/24/20 19 2018 Inactive discontinue any other H2Blkr. and PPI albuterol sulfate 2.5 mg/3 mL (0.083 %) solution for nebulization RxNorm: 948089 1 Vial Inhalation every four hours as needed as needed for dyspnea 08/17/202019 Inactive 60/box. This refill negates all other refills of this medication. Please do not fill early. Please do not auto refill. Symbicort 160 mcg-4.5 mcg/actuation HFA aerosol inhaler RxNorm: 5741147 2 Puff(s) INH BID 08/17/20 19 No Stop Date Active Alcohol Prep Pads RxNorm: 764933 1 Patch TOP QAM 08/17/20 19 2019 Inactive Ventolin HFA 90 mcg/actuation aerosol inhaler RxNorm: 010661 2 Puff(s) INH QID 08/09/20 19 2019 Inactive Please do not fill early. Please do not auto refill. This refill negates all other refills of this medication True Metrix Glucose Test Strip RxNorm: 1 Test Strips Miscellaneous QAM 08/09/20 19 2019 Inactive 100/container atorvastatin 40 mg tablet RxNorm: 509813 1 Tablet(s) Oral every day 07/04/20 19 2019 Inactive levmetamfetamine 50 mg nasal inhaler RxNorm: 1 Unit(s) NASAL Q3-4H Do not use more than every 3 hours or 8 times/24hours 06/26/20 19 2021 Inactive Please do not auto refill. This refill negates all other refills of this medication buspirone 7.5 mg tablet RxNorm: 566556 1 Tablet(s) PO BID 06/26/20 19 2020 Inactive This refill negates all other refills of this medication hydrochlorothiazide 12.5 mg tablet RxNorm: 184891 1 Tablet(s) PO QAM 06/26/20 19 2019 Inactive Ventolin HFA 90 mcg/actuation aerosol inhaler RxNorm: 483563 2 Puff(s) INH QID 06/26/20 19 2018 Inactive Please do not fill early. Please do not auto refill. This refill negates all other refills of this medication Singulair 10 mg tablet RxNorm: 934101 1 Tablet(s) PO daily 06/26/20 19 2019 Inactive This refill negates all other refills of this medication cetirizine 10 mg tablet RxNorm: 7252337 1 Tablet(s) PO daily 06/26/20 19 2019 Inactive This refill negates all other refills of this medication. Please do not auto refill levothyroxine 50 mcg tablet RxNorm: 577757 1 Tablet(s) PO daily 06/26/20 19 2019 Inactive This refill negates all other refills of this medication diclofenac sodium 75 mg tablet,delayed release RxNorm: 340564 1 Tablet(s) PO BID 06/26/20 19 2019 Inactive This refill negates all other refills of this medication ranitidine 150 mg tablet RxNorm: 152123 1 Tablet(s) PO BID 06/26/20 19 2018 Inactive This refill negates all other refills of this medication Calcium 600-D3 Plus (mag-zinc) 600 mg calcium-800 unit-50 mg tablet RxNorm: 1 Tablet(s) PO daily take an additonal tablet for itching. 06/26/20 19 2018 Inactive This refill negates all other refills of this medication albuterol sulfate 2.5 mg/3 mL (0.083 %) solution for nebulization RxNorm: 545442 1 Vial INH QID 06/26/20 19 2018 Inactive 60/box. This refill negates all other refills of this medication. Please do not fill early. Please do not auto refill. lisinopril 2.5 mg tablet RxNorm: 060238 1 Tablet(s) PO daily 06/21/20 19 2019 Inactive gabapentin 300 mg capsule RxNorm: 497077 1 Capsule(s) PO TID 06/21/20 19 2019 Inactive atorvastatin 20 mg tablet RxNorm: 563686 1 Tablet(s) PO QHS 06/07/202018 Inactive This refill negates all other refills of this medication TRUEplus Lancets 30 gauge RxNorm: 1 Lancets Miscellaneous QAM 05/29/20 19 2018 Inactive 100/box gabapentin 300 mg capsule RxNorm: 352377 1 Capsule(s) PO TID 05/03/20 19 2018 Inactive Flnickolas Complete (iron) 18 mg iron chewable tablet RxNorm: 1 Tablet(s) PO daily 04/04/20 19 2021 Inactive This refill negates all other refills of this medication gabapentin 300 mg capsule RxNorm: 778432 1 Capsule(s) PO TID as needed 02/01/20 19 2018 Inactive True Metrix Glucose Test Strip RxNorm: 1 Test Strips Miscellaneous QAM 02/01/20 19 2018 Inactive 100/container Alcohol Prep Pads RxNorm: 393971 1 Patch TOP QAM 02/01/20 19 2018 Inactive TRUEplus Lancets 30 gauge RxNorm: 1 Lancets Miscellaneous QAM 02/01/20 19 2018 Inactive 100/box lisinopril 2.5 mg tablet RxNorm: 030024 1 Tablet(s) PO daily 12/28/19 19 2018 Inactive ranitidine 150 mg tablet RxNorm: 445172 1 Tablet(s) PO BID 10/21/19 19 2018 Inactive This refill negates all other refills of this medication albuterol sulfate 2.5 mg/3 mL (0.083 %) solution for nebulization RxNorm: 183610 1 Vial INH QID 10/21/19 19 2018 [...] this medication gabapentin 300 mg capsule RxNorm: 403102 1 Capsule(s) PO TID as needed 10/21/19 19 2018 Inactive atorvastatin 20 mg tablet RxNorm: 874950 1 Tablet(s) PO QHS 10/21/19 19 2018 Inactive This refill negates all other refills of this medication trazodone 50 mg tablet RxNorm: 935484 1 Tablet(s) PO QHS 10/21/19 19 2018 Inactive This refill negates all other refills of this medication Ventolin HFA 90 mcg/actuation aerosol inhaler RxNorm: 128003 2 Puff(s) INH QID 10/21/19 19 2018 Inactive Please do not fill early. Please do not auto refill. This refill negates all other refills of this medication Calcium 600-D3 Plus 600 mg calcium-800 unit-50 mg tablet RxNorm: 1 Tablet(s) PO daily take an additonal tablet for itching. 10/21/192018 Inactive This refill negates all other refills of this medication Singulair 10 mg tablet RxNorm: 121213 1 Tablet(s) PO daily 10/21/192018 Inactive This refill negates all other refills of this medication buspirone 7.5 mg tablet RxNorm: 586079 1 Tablet(s) PO BID 10/21/19 19 2018 Inactive This refill negates all other refills of this medication diclofenac sodium 75 mg tablet,delayed release RxNorm: 406746 1 Tablet(s) PO BID 10/21/19 19 2018 Inactive This refill negates all other refills of this medication hydrochlorothiazide 12.5 mg tablet RxNorm: 621924 1 Tablet(s) PO QAM 10/21/19 19 2018 Inactive metoprolol succinate ER 50 mg tablet,extended release 24 hr RxNorm: 179845 1 Tablet(s) PO daily 10/21/192018 Inactive This refill negates all other refills of this medication levothyroxine 50 mcg tablet RxNorm: 042175 1 Tablet(s) PO daily 10/21/192018 Inactive This refill negates all other refills of this medication cetirizine 10 mg tablet RxNorm: 5375713 1 Tablet(s) PO daily 10/21/192018 Inactive This refill negates all other refills of this medication. Please do not auto refill Flintstones Complete (iron) 18 mg iron chewable tablet RxNorm: 1 Tablet(s) PO daily 10/21/192018 Inactive This refill negates all other refills of this medication buspirone 7.5 mg tablet RxNorm: 056942 1 Tablet(s) PO BID 10/12/192018 Inactive cetirizine 10 mg tablet RxNorm: 6966347 1 Tablet(s) PO daily 09/28/202018 Inactive Guaiasorb DM 10 mg-100 mg/5 mL oral liquid RxNorm: 344428 10 Milliliter(s) PO As needed every 4 hr 09/24/202018 Inactive Vicks Vaporub 4.7 %-1.2 %-2.6 % topical ointment RxNorm: 2299887 1 Application TOP TID 09/24/20 18 2018 Inactive levmetamfetamine 50 mg nasal inhaler RxNorm: 1 Unit(s) NASAL Q3-4H 09/24/20 18 2017 Inactive sertraline 50 mg tablet RxNorm: 552123 1 Tablet(s) PO daily 09/09/20 18 2018 Inactive Please note dose trazodone 50 mg tablet RxNorm: 044277 1 Tablet(s) PO QHS 09/06/20 18 2018 Inactive sertraline 50 mg tablet RxNorm: 586696 1 Tablet(s) PO daily 09/06/20 18 2017 Inactive amoxicillin 500 mg tablet RxNorm: 475982 1 Tablet(s) PO Q12H 08/31/20 18 2017 Inactive albuterol sulfate 2.5 mg/3 mL (0.083 %) solution for nebulization RxNorm: 997147 1 Vial INH QID 08/10/20 18 2018 Inactive 60/box. Please do not fill early. Please do not auto refill. Prozac 10 mg capsule RxNorm: 389814 1 Capsule(s) PO daily 08/09/20 18 2017 Inactive buspirone 7.5 mg tablet RxNorm: 542888 1 Tablet(s) PO BID 08/09/20 18 2018 Inactive gabapentin 300 mg capsule RxNorm: 245527 1 Capsule(s) PO TID as needed 08/01/20 18 2018 Inactive hydrochlorothiazide 12.5 mg tablet RxNorm: 804038 1 Tablet(s) PO QAM 08/01/20 18 2018 Inactive ranitidine 150 mg tablet RxNorm: 873402 1 Tablet(s) PO BID 08/01/20 18 2018 Inactive Macrobid 100 mg capsule RxNorm: 104556 1 Capsule(s) PO Q12H 06/21/20 18 2017 Inactive Singulair 10 mg tablet RxNorm: 629424 1 Tablet(s) PO daily 06/14/20 18 2018 Inactive Ventolin HFA 90 mcg/actuation aerosol inhaler RxNorm: 5938204 2 Puff(s) INH QID 06/14/20 18 2018 Inactive Singulair 10 mg tablet RxNorm: 347145 1 Tablet(s) PO daily 06/14/20 18 2017 Inactive buspirone 7.5 mg tablet RxNorm: 481537 1 Tablet(s) PO BID 06/14/20 18 2017 Inactive Prozac 10 mg capsule RxNorm: 403388 1 Capsule(s) PO daily 06/14/20 18 2017 Inactive Neilmed Pediatric Sinus Rinse Refill packet RxNorm: 1 Unit Dose NASAL PRN 05/31/20 18 2021 Inactive diclofenac sodium 75 mg tablet,delayed release RxNorm: 853622 1 Tablet(s) PO BID 05/31/20 18 2017 Inactive lisinopril 2.5 mg tablet RxNorm: 511144 1 Tablet(s) PO daily 05/31/20 18 2017 Inactive metoprolol succinate ER 50 mg tablet,extended release 24 hr RxNorm: 417635 1 Tablet(s) PO daily 05/31/20 18 2017 Inactive levothyroxine 50 mcg tablet RxNorm: 637048 1 Tablet(s) PO daily 05/31/20 18 2017 Inactive TRUEplus Lancets 30 gauge RxNorm: 1 Lancets Miscellaneous QAM 05/31/20 18 2017 Inactive 100/box Ventolin HFA 90 mcg/actuation aerosol inhaler RxNorm: 568182 2 Puff(s) INH QID 05/31/20 18 2017 Inactive Aleve 220 mg capsule RxNorm: 8058546 1 Capsule(s) PO BID 05/31/20 18 2018 Inactive ranitidine 150 mg tablet RxNorm: 121464 1 Tablet(s) PO BID 05/31/20 18 2017 Inactive gabapentin 300 mg capsule RxNorm: 045390 1 Capsule(s) PO TID as needed 05/31/20 18 2017 Inactive atorvastatin 20 mg tablet RxNorm: 148159 1 Tablet(s) PO QHS 05/31/20 18 2017 Inactive True Metrix Glucose Test Strip RxNorm: 1 Test Strips Miscellaneous QAM 05/31/20 18 2017 Inactive 50/container Calcium 600-D3 Plus 600 mg calcium-800 unit-50 mg tablet RxNorm: 1 Tablet(s) PO daily take an additonal tablet for itching. 05/31/20 18 2017 Inactive hydrochlorothiazide 12.5 mg tablet RxNorm: 859502 1 Tablet(s) PO QAM 05/31/20 18 2017 Inactive Flintstones Complete (iron) 18 mg iron chewable tablet RxNorm: 1 Tablet(s) PO daily 05/31/20 18 2017 Inactive d-mannose oral powder RxNorm: PO 18 2021 Inactive True Metrix Glucose Meter RxNorm: miscellaneous 08/17/20 19 2018 Inactive sertraline 50 mg tablet RxNorm: 362539 1 Tablet(s) PO daily 11/28/19 20 2019 Inactive loperamide 2 mg tablet RxNorm: 397523 oral 09/29/20 19 2018 Inactive Symbicort 160 mcg-4.5 mcg/actuation HFA aerosol inhaler RxNorm: 0701295 2 Puff(s) INH BID 08/17/20 19 2018 Inactive Medication Administered No Medication Administered data Procedures Procedure Codes Date Frailty Screening CPT-4: SFD 05/20/2021 Hypertension CPT-4: HTN 04/01/2021 Tobacco Assessment/Screening CPT-4: TCA 08/2021 Patient Health Questionnaire CPT-4: DPHQ 08/2021 Mini Mental State Exam CPT-4: DMMA Annual Wellness Visit (Subsequent Visit) CPT-4: G0439 01/13/2021 Advanced Care Planning CPT-4: VACP 1 Fall Risk Assessment SNOMED CT: 37452575 4 CPT-4: DFRA 01/13/2021 [place] Assessment CPT-4: DSWA 12/01 Urinalysis, dip stick CPT-4: 78986 09/24/2020 Patient Health Questionnaire CPT-4: DPHQ Electrocardiogram CPT-4: 92821 05/14/2020 Tobacco Assessment/Screening CPT-4: TCA Fall Risk Assessment SNOMED CT: 62619394 4 CPT-4: DFRA 01/01/2020 Functional Assessment CPT-4: DFA 01/01/2020 [place] Fany Assessment CPT-4: DSWA 11/04 Patient Health Questionnaire CPT-4: DPHQ [place] Assessment CPT-4: DSWA 10/03 Hypertension CPT-4: HTN 10/17/2019 Fall Risk Assessment SNOMED CT: 06540672 4 CPT-4: DFRA 09/19/2019 Functional Assessment CPT-4: DFA 09/19/2019 Urinalysis, dip stick CPT-4: 59808 06/21/2019 Tobacco Assessment/Screening CPT-4: TCA Patient Health Questionnaire CPT-4: DPHQ AHA/REBECCA Classification Assessment CPT-4: DAHA 04/25/2019 Controlled Substance Report CPT-4: CTRSU 04/03 Urinalysis, dip stick CPT-4: 06439 03/28/2019 Urinalysis, dip stick CPT-4: 98826 03/28/2019 W9V-Ppwpubglgiuzuvm CPT-4: 77528 Unknown S4D-Guoqdydplijydif CPT-4: 52361 Unknown L7G-Lqnjmuuajsmjkpz CPT-4: 81351 Unknown A4B-Advejilzbibeyrs CPT-4: 58947 Unknown E6K-Eeonyxugctebvsm CPT-4: 52524 Unknown M1C-Sbkcsrlyvedgsyv CPT-4: 35782 Unknown E2Z-Pkqvsvnwunlotpl CPT-4: 95736 Unknown Gynecology Referral SNOMED CT: 198576708 CPT-4: R14 Unknown Reason For Visit Reason For Visit Effective Dates Notes sinus congestion 06/02/2021 diabetes mellitus 06/02/2021 Interim health update 06/02/2021 dizziness 06/02/2021 Encounters Encounter Performer Location Location Address Codes Magdi e ([id number]) (EST PT) DETAILED TELEHEALTH VISIT Diagnosis: Upper respiratory infection[ICD10: J06.9] Diagnosis: Type 2 diabetes mellitus with peripheral neuropathy[ICD10: E11.42] Anna Culver [place] [address] [place] [id number] CPT-4: 90108 06/02/2021 Plan of Care Planned Activity Notes Codes Status Date Visit Plan: Video and audio call using Lenin J06.9-465.9 Upper respiratory infection prescription for sudafed sent yesterday-patient denies getting indicating it went to [facility]-she picked up Tylenol Cold and Sinus OTC discussed benefits of nasal lavage, vaporizer, and rest advised to call back for persistent or worsening symptoms E11.42-250.60 Type 2 diabetes mellitus with peripheral neuropathy ranging 104-230 encouraged to monitor diet for changes based on blood sugar has been eating more fruits lately-discussed impact of fruit and simple carbs on blood sugars encouraged plant based diet, Metformin 1000mg BID - elevated liver enzymes noted with last labs, will check labs at next home visit, may need to make adjustments to this medication received new monitor [facility] through [facility]-participant of [facility] on demand - 05/20/2021 Hemoglobin A1C 5.4 stable 10/17/2019 [place] 7/10-instructed on good daily foot care [...] diabetes mellitus labs to be drawn at [facility] neurology - has appt 06/09/2021 advised to notify office for persistent or worsening symptoms F43.23-309.28 Adjustment disorder with mixed anxiety and depressed mood reviewed previously discussed stress management routine follow up [facility] 03/13/2021 PHQ 9 Score 4 Sertraline 200mg daily 04/01/2021 Functional Assessment independent with ADLs R63.0-783.0 Anorexia symptoms persistent advised to continue to try small, more frequent food intake, discussed limiting carbonated beverages as this may make her feel full taking away appetite discussed benefits of [place] Instant Breakfast not using note weight has [...] new appt for pap in June 2020-[employer] 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-records requested Z01.89-V72.85 Encounter for screening for tobacco use 03/13/2021 Tobacco screen complete-patient denies ever smoking Z12.31-V76.12 (Z12.31-V76.12) Encounter for screening mammogram for malignant neoplasm of breast Z12.11-V76.51 (Z12.11-V76.51) Encounter for screening for malignant neoplasm of colon Preventative testing not indicated due to age *I reviewed the most recent CDC guidelines regarding Covid-19/Coronavirus with the patient/caregiver/designee 06/02/2021 Patient Education: Patient Medication Summary Completed 06/02/2021 Patient Education: Diabetes Complete d 06/02/2021 Patient Education: Dizziness Complet ed 06/02/2021 Appointment: Chivo Bishop WPtel: [address] [place] [address] [place] ETV 05/20/2021 Appointment: Anna Culver WPtel: [address] [place] [address] [place] ETV 04/28/2021 Appointment: Chivo Bishop WPtel: [address] [place] [address] [place] ETV 04/15/2021 Appointment: Anna Culver WPtel: [address] [place] [address] [place] E410 04/01/2021 Appointment: Anna Culver WPtel: [address] [place] [address] ETV 03/24/2021 Appointment: Anna Culver WPtel: [id number] [place] [address] ETV 03/13/2021 Appointment: Anna Culver WPtel: [address] [place] [address] E410 02/11/2021 Appointment: Chivo Bishop WPtel: [address] [place] [address] E410 01/29/2021 Appointment: Anna Culver WPtel: [address] [place] [address] ETV 01/13/2021 Appointment: Anna Culver WPtel: [address] [place] [address] E410 12/17/2020 Appointment: Chivo Bishop WPtel: [address] [place] [address] ETV 11/28/2020 Appointment: Anna Culver WPtel: [address] [place] [address] ETV 11/24/2020 Appointment: Anna Culver WPtel: [address] [place] [address] E410 10/29/2020 Appointment: Anna Culver WPtel: [address] [place] [address] E410 09/24/2020 Appointment: Anna Culver WPtel: [address] [place] [address] ETV 08/26/2020 Appointment: Anna Culver WPtel: [address] [place] [address] ETV 08/19/2020 Appointment: Anna Culver WPtel: [address] [place] [address] ETV 07/22/2020 Appointment: Anna Culver WPtel: [id number] [place] [address] [place] ETV 07/08/2020 Appointment: Gianna Birmingham: [address] [facility] 100 [id number] [place] ECHO 07/02/2020 Appointment: Anna Culver WPtel: [address] [place] [address] [place] E452 06/11/2020 Appointment: Anna Culver WPtel: [address] [place] [address] E452 05/14/2020 Appointment: Anna Culver WPtel: [address] [place] [address] E452 04/17/2020 Appointment: Anna Culver WPtel: [address] [place] [address] E452 03/21/2020 Appointment: Anna Culver WPtel: [address] [place] [address] E452 02/14/2020 Appointment: Anna Culver WPtel: [address] [place] [address] E452 01/24/2020 Appointment: Anna Culver WPtel: [address] [place] [address] [place] E452 01/01/2020 Appointment: Anna Culver WPtel: [address] [place] [address] [place] E452 11/28/2019 Appointment: Anna Culver WPtel: [address] [place] [address] [place] E452 10/17/2019 Appointment: Anna Culver WPtel: [address] [place] [address] [place] E452 09/19/2019 Appointment: Sudha Hernadez WPtel: [address] [facility] b [id number] [place] E452 07/04/2019 Appointment: Sudha Hernadez WPtel: [address] [facility] [id number] E452 06/21/2019 Appointment: Charlene Oropeza WPtel: [address] [facility] [id number] E452 05/24/2019 Appointment: Mallory Delgado E452 04/27/2019 Appointment: Charlene Oropeza WPtel: [address] [place] [address] [id number] E452 04/25/2019 Appointment: Rasta Palafox WPtel: [address] [facility] [id number] E452 03/28/2019 Appointment: Rasta Palafox WPtel: [address] [place] [address] [id number] 02/14/2019 Appointment: Rasta Palafox WPtel: [address] [place] [address] [id number] E452 01/31/2019 Appointment: Rasta Palafox WPtel: [address] [place] [address] [id number] E420 12/27/2018 Referral: Pending Gynecology Referral Information Referral Processed Referral: Pending Pulmonolog y Referral Information Referral Processed Referral: Pending Psychiatry Referral Information Referral Initiated Referral: Pending Respirator y Services Referral Information Referral Initiated Referral: Pending Ophthalmology Referral Information Referral Initiated Referral: [facility] WPtel: [address] [address] [place] Surveillance Sensor Operator placed a call out to the patient to notify her that it has been recommended that she be seen by a urologist. Patient agreed to be seen, does not have a provider of choice and no transportation issues. Surveillance Sensor Operator faxed referral and clinical notes to [facility] in [place], [place] near the patient's home. Patient [...] seen and prefers a provider in the [place] or [place] area. Surveillance Sensor Operator placed a call out to everyone listed in the area and the only location that was able to accept the patient's insurance was [facility] [place] [address] and spoke with Maylin. Maylin asked that the patient's referral, face sheet and visit notes be faxed to . Surveillance Sensor Operator faxed over requested documents. Patient appointment confirmation letter generated and mailed to her home address. Patient to call to schedule an appointment. Processed Referral: [facility] WPtel: [address] [place] [address] Patient notified that it has been advised that she be seen by Neurology. Patient agreed to be seen and prefers to be seen by a provider in the [place], [place] area. Patient denies any concerns with transportation, and prefers to schedule her own appointment. Surveillance Sensor Operator placed a call out to [facility] and spoke with [...] patient . Video and audio call using [email or web address] J03.9-128.9 Upper respiratory infection prescription for sudafed sent yesterday-patient denies getting indicating it went to exact care-she picked up Tylenol Cold and Sinus OTC discussed benefits of nasal lavage, vaporizer, and rest advised to call back for persistent or worsening symptoms E11.42-250.60 Type 2 diabetes mellitus with peripheral neuropathy ranging 104-230 encouraged to monitor diet for changes based [...] - 05/20/2021 Hemoglobin A1C 5.4; stable 10/17/2019 [place] Fany 04/11-instructed on good daily foot care [...] diabetes mellitus labs to be [facility] - has appt 06/09/2021 advised to notify office for persistent or worsening symptoms F43.23-309.28 Adjustment disorder with mixed anxiety and depressed mood reviewed previously discussed stress management routine follow up [facility] 03/13/2021 PHQ 9 Score 4 Sertraline 200mg daily 04/01/2021 Functional Assessment independent with ADLs R63.0-783.0 Anorexia symptoms persistent advised to continue to try small, more frequent food intake, discussed limiting carbonated beverages as this may make her feel full taking away appetite discussed benefits of [employer] Breakfast not using note weight has remained stable over the past couple months-will continue to monitor I10-401.9 Essential (primary) hypertension I11.0-402.91 Hypertensive heart disease with heart failure cont hctz and lisinipril 04/01/2021 HTN assessment complete discussed lifestyle modification including weight loss and limiting sodium intake 05/20/2021 GFR >60 [place] lab didn't provide exact number 05/14/2020 EKG [...] new appt for pap in June 2020-[employer] 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-records requested Z01.89-V72.85 Encounter for screening for tobacco use 03/13/2021 Tobacco screen complete-patient denies ever smoking Z12.31-V76.12 (Z12.31-V76.12) Encounter for screening mammogram for malignant neoplasm of breast Z12.11-V76.51 (Z12.11-V76.51) Encounter for screening for malignant neoplasm of colon Preventative testing not indicated due to age *I reviewed the most recent CDC guidelines regarding Covid-19/Coronavirus with the patient/caregiver/designee 06/02/2021 Medical Equipment No Medical Equipment data Advance Directives No Advance Directive data
--- OUTSIDE RECORDS SUMMARY | 2023-12-07 02:17 | XMS_ITS | CCD ---
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 Radiologic Technologist Name Role Phone Palomo KING, Anna Primary Care Provider Unav ailable Unavailable Chronic Care Management Unavaila ble Summary Purpose DataExchange Insurance Providers Payer name Policy type / Coverage type Covered libertarian ID Effective Begin Date Effective End Date SUKI MAYO [id number] Unknown Unknown Family history Mother Diagnosis Age [...] Unknown Disability 05/31/[address]: 914061604 Has never s moked or chewed tobacco 05/31/[address]: 309073850 Never drinks alco hol 05/31/2018 Has the patient ever used illegal drugs? 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 ICD-10: Z79.899 ICD-9: V58.69 04/25/2019 Inactive Type 2 diabetes mellitus wit hout complications ICD-10: E11.9 ICD-9: 250.00 10/03/2018 Inactive Wheezing ICD-10: R06.2 ICD-9: 786.07 08/08/2018 Inactive Abnormal urine finding ICD-10: R82.90 ICD-9: 791.9 09/24/2020 Resolved Abrasion of toe ICD-10: S90.416A ICD-9: 917.0 02/14/2020 Resolved Acute upper respiratory infe ction, unspecified ICD-10: J06.9 ICD-9: 465.9 09/04/2019 Resolved [place] eye ICD-10: H10.029 ICD-9: 372.03 12/29/2019 Resolved [...] ICD-10: R60.9 ICD-9: 782.3 07/11/2018 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-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 anti-inflammatories (NSAID) ICD-10: Z79.1 ICD-9: V58.64 06/13/2018 Active Medications Medication Codes Instructions Start Date Stop Date Status Fill Instructions Sudafed 12 Hour 120 mg tablet,extended release RxNorm: 9039883 TAKE 1 TABLET BY MOUTH EVERY 12 HOURS NEEDED 06/01/202 Inactive Heartburn Relief (famotidine) 10 mg tablet RxNorm: 938095 Take 1 Tablet(s) Oral every morning 05/07/20 21 2020 Inactive omeprazole 20 mg capsule,delayed release RxNorm: 026376 1 Capsule(s) Oral every evening 04/03/20 21 2020 Inactive sertraline 100 mg tablet RxNorm: 673274 2 Tablet(s) Oral every day 03/13/20 21 2020 Inactive levothyroxine 50 mcg tablet RxNorm: 484865 TAKE (1) TABLET BY MOUTH DAILY 02/04/20 21 2020 Inactive metformin 500 mg tablet RxNorm: 391872 1 Tablet(s) Oral two times a day take with 500mg to equal 1000mg 01/14/20 21 2020 Inactive gabapentin 300 mg capsule RxNorm: 313252 TAKE 1 CAPSULE BY MOUTH THREE TIMES A DAY 01/14/20 21 2020 Inactive lisinopril 2.5 mg tablet RxNorm: 816452 TAKE 1 TABLET BY MOUTH DAILY 01/06/20 21 2020 Inactive gabapentin 300 mg capsule RxNorm: 560566 TAKE 1 CAPSULE BY MOUTH THREE TIMES A DAY 01/06/20 21 2020 Inactive Singulair 10 mg tablet RxNorm: 140232 TAKE (1) TABLET BY MOUTH DAILY 01/06/20 21 2020 Inactive metformin 1,000 mg tablet RxNorm: 872312 1 Tablet(s) Oral two times a day 01/06/20 21 2020 Inactive atorvastatin 40 mg tablet RxNorm: 682253 1 Tablet(s) Oral every day 12/06/19 21 2020 Inactive omeprazole 20 mg capsule,delayed release RxNorm: 707396 1 Capsule(s) Oral every evening 11/24/19 21 2020 Inactive famotidine 10 mg tablet RxNorm: 221100 1 Tablet(s) Oral every morning 11/24/19 21 2020 Inactive Alcohol Prep Pads RxNorm: 897302 USE EACH MORNING 10/14/19 21 2020 Inactive omeprazole 20 mg capsule,delayed release RxNorm: 614221 1 Capsule(s) Oral two times a day 10/13/19 21 2021 Inactive omeprazole 20 mg capsule,delayed release RxNorm: 200647 TAKE 1 CAPSULE BY MOUTH EVERY DAY 10/08/192021 Inactive Macrobid 100 mg capsule RxNorm: 436335 1 Capsule(s) Oral every 12 hours with food 10/01/202020 Inactive omeprazole 20 mg capsule,delayed release RxNorm: 023584 1 Capsule(s) Oral two times a day 09/24/20 20 2021 Inactive metformin 1,000 mg tablet RxNorm: 943015 1 Tablet(s) Oral two times a day 08/19/202020 Inactive start on September 11, 2020 metformin 500 mg tablet RxNorm: 725873 1 Tablet(s) Oral two times a day take with 500mg to equal 1000mg 08/19/20 20 2019 Inactive gabapentin 300 mg capsule RxNorm: 164690 TAKE 1 CAPSULE BY MOUTH THREE TIMES DAILY 07/11/20 20 2020 Inactive cetirizine 10 mg tablet RxNorm: 7391009 TAKE (1) TABLET BY MOUTH DAILY 07/11/20 20 2020 Inactive metformin 500 mg tablet RxNorm: 745783 1 Tablet(s) Oral two times a day 07/08/20 20 2019 Inactive loperamide 2 mg tablet RxNorm: 148014 1 Tablet(s) Oral as needed take one tablet after each loose stool, maximum of 8 tablets in 24 hours 06/24/202021 Inactive Sudafed 12 Hour 120 mg tablet,extended release RxNorm: 3665248 TAKE 1 TABLET BY MOUTH EVERY 12 HOURS NEEDED 06/11/20 20 2019 Inactive hydrochlorothiazide 25 mg tablet RxNorm: 900414 TAKE (1) TABLET BY MOUTH EVERY DAY 06/11/20 20 2019 Inactive omeprazole 20 mg capsule,delayed release RxNorm: 889418 TAKE 1 CAPSULE BY MOUTH EVERY DAY 05/14/20 20 2020 Inactive metformin 500 mg tablet RxNorm: 553875 1 Tablet(s) Oral every day 05/12/20 20 2019 Inactive True Metrix Glucose Test Strip RxNorm: 1 Test Strips Miscellaneous two times a day as needed 04/17/20 No Stop Date Active metformin 500 mg tablet RxNorm: 736821 1 Tablet(s) Oral every day 04/17/20 20 2019 Inactive diclofenac sodium 75 mg tablet,delayed release RxNorm: 475779 1 Tablet(s) PO BID 04/14/20 20 2021 Inactive This refill negates all other refills of this medication Sudafed 12 Hour 120 mg tablet,extended release RxNorm: 1248149 TAKE 1 TABLET BY MOUTH EVERY 12 HOURS NEEDED 03/14/20 20 2019 Inactive True Metrix Glucose Test Strip RxNorm: 1 Test Strips Miscellaneous every morning 03/13/20 20 2019 Inactive 100/container True Metrix Glucose Test Strip RxNorm: 1 Test Strips Miscellaneous QA 02/22/20 20 2019 Inactive 100/container loperamide 2 mg tablet RxNorm: 923478 1 Tablet(s) Oral as needed take one tablet after each loose stool, maximum of 8 tablets in 24 hours 02/22/20 20 2019 Inactive cetirizine 10 mg tablet RxNorm: 8785000 1 Tablet(s) PO daily 01/17/20 20 2019 Inactive loperamide 2 mg tablet RxNorm: 135933 1 Tablet(s) Oral as needed take one tablet after each loose stool, maximum of 8 tablets in 24 hours 01/17/20 20 2019 Inactive quetiapine 100 mg tablet RxNorm: 657200 1 Tablet(s) Oral every night at bedtime 01/17/20 20 2019 Inactive levothyroxine 50 mcg tablet RxNorm: 333447 1 Tablet(s) PO daily 01/17/20 20 2020 Inactive gabapentin 300 mg capsule RxNorm: 196449 1 Capsule(s) PO TID 01/17/20 20 2019 Inactive levothyroxine 50 mcg tablet RxNorm: 105921 1 Tablet(s) PO daily 01/15/20 20 2019 Inactive lisinopril 2.5 mg tablet RxNorm: 594241 1 Tablet(s) PO daily 01/15/20 20 2020 Inactive gabapentin 300 mg capsule RxNorm: 750116 1 Capsule(s) PO TID 01/15/20 20 2019 Inactive cetirizine 10 mg tablet RxNorm: 1343135 1 Tablet(s) PO daily 01/15/20 20 2019 Inactive Singulair 10 mg tablet RxNorm: 951054 1 Tablet(s) PO daily 01/15/20 20 2020 Inactive gentamicin 0.3 % eye drops RxNorm: 451794 1 Drop(s) ophthalmic (eye) four times a day 12/29/19 20 2019 Inactive gentamicin 0.3 % eye drops RxNorm: 973141 1 Drop(s) ophthalmic (eye) four times a day 12/29/19 20 2019 Inactive gentamicin 0.3 % eye drops RxNorm: 574489 1 Drop(s) ophthalmic (eye) four times a day 12/29/19 20 2019 Inactive hydrochlorothiazide 25 mg tablet RxNorm: 659730 1 Tablet(s) Oral every day 12/21/19 20 2019 Inactive Sudafed 12 Hour 120 mg tablet,extended release RxNorm: 4547864 TAKE (1) TABLET BY MOUTH EVERY 12 HOURS NEEDED 12/21/19 20 2019 Inactive loperamide 2 mg tablet RxNorm: 132349 1 Tablet(s) Oral as needed take one tablet after each loose stool, maximum of 8 tablets in 24 hours 12/11/19 20 2019 Inactive loperamide 2 mg tablet RxNorm: 952125 1 Tablet(s) Oral as needed take one tablet after each loose stool, maximum of 8 tablets in 24 hours 12/11/19 20 2019 Inactive atorvastatin 40 mg tablet RxNorm: 189461 1 Tablet(s) Oral every day 11/29/19 20 2020 Inactive quetiapine 100 mg tablet RxNorm: 853399 1 Tablet(s) Oral every night at bedtime 11/28/19 20 2019 Inactive sertraline 100 mg tablet RxNorm: 921223 1 Tablet(s) Oral 11/28/19 20 2019 Inactive omeprazole 20 mg capsule,delayed release RxNorm: 363733 1 Capsule(s) Oral every day 11/20/19 20 2019 Inactive amoxicillin 250 mg capsule RxNorm: 657854 1 Capsule(s) Oral three times a day 11/07/19 20 2019 Inactive multivitamin with iron-mineral tablet RxNorm: 1 Tablet(s) Oral every day 10/29/19 20 2021 Inactive cetirizine 10 mg tablet RxNorm: 9413083 1 Tablet(s) PO daily 10/20/19 20 2019 Inactive This refill negates all other refills of this medication. Please do not auto refill Singulair 10 mg tablet RxNorm: 583420 1 Tablet(s) PO daily 10/20/19 20 2019 Inactive This refill negates all other refills of this medication gabapentin 300 mg capsule RxNorm: 837157 1 Capsule(s) PO TID 10/20/19 20 2019 Inactive lisinopril 2.5 mg tablet RxNorm: 559752 1 Tablet(s) PO daily 10/20/19 20 2019 Inactive levothyroxine 50 mcg tablet RxNorm: 828265 1 Tablet(s) PO daily 10/20/19 20 2019 Inactive This refill negates all other refills of this medication fenugreek seed extract 500 mg capsule RxNorm: 1 Capsule(s) Oral three times a day 10/17/19 20 2021 Inactive hydrochlorothiazide 25 mg tablet RxNorm: 034033 1 Tablet(s) Oral every day 10/17/19 20 2019 Inactive Alcohol Prep Pads RxNorm: 251118 1 Patch TOP QAM 10/16/19 20 2020 Inactive loperamide 2 mg tablet RxNorm: 405646 1 Tablet(s) Oral as needed take one tablet after each loose stool not to exceed 8 tablets a day 09/29/202018 Inactive Calcium 600-D3 Plus (mag-zinc) 600 mg calcium-800 unit-50 mg tablet RxNorm: 1 Tablet(s) PO daily take an additonal tablet for itching. 09/22/2001/ 2022 Inactive This refill negates all other refills of this medication TRUEplus Lancets 30 gauge RxNorm: 1 Lancets Miscellaneous QAM 09/22/20 19 2019 Inactive 100/box fenugreek seed extract 500 mg capsule RxNorm: 1 Capsule(s) Oral three times a day 09/19/20 19 2019 Inactive hydrochlorothiazide 25 mg tablet RxNorm: 130451 1 Tablet(s) Oral every day 09/19/20 19 2019 Inactive Sudafed 12 Hour 120 mg tablet,extended release RxNorm: 9357851 1 Tablet(s) Oral every 12 hours as needed 09/11/20 19 2018 Inactive omeprazole 20 mg capsule,delayed release RxNorm: 245196 1 Capsule(s) Oral every day 09/07/20 19 2019 Inactive Sudafed 12 Hour 120 mg tablet,extended release RxNorm: 6614619 1 Tablet(s) Oral every 12 hours as needed 09/04/20 19 2018 Inactive pantoprazole 40 mg tablet,delayed release RxNorm: 769245 1 Tablet(s) Oral every day 08/24/20 19 2018 Inactive discontinue any other H2Blkr. and PPI albuterol sulfate 2.5 mg/3 mL (0.083 %) solution for nebulization RxNorm: 563337 1 Vial Inhalation every four hours as needed as needed for dyspnea 08/17/20 19 2019 Inactive 60/box. This refill negates all other refills of this medication. Please do not fill early. Please do not auto refill. Symbicort 160 mcg-4.5 mcg/actuation HFA aerosol inhaler RxNorm: 9743906 2 Puff(s) INH BID 08/17/20 19 No Stop Date Active Alcohol Prep Pads RxNorm: 877567 1 Patch TOP QAM 08/17/20 19 2019 Inactive Ventolin HFA 90 mcg/actuation aerosol inhaler RxNorm: 200287 2 Puff(s) INH QID 08/09/20 19 2019 Inactive Please do not fill early. Please do not auto refill. This refill negates all other refills of this medication True Metrix Glucose Test Strip RxNorm: 1 Test Strips Miscellaneous QAM 08/09/20 19 2019 Inactive 100/container atorvastatin 40 mg tablet RxNorm: 748992 1 Tablet(s) Oral every day 07/04/20 19 2019 Inactive levmetamfetamine 50 mg nasal inhaler RxNorm: 1 Unit(s) NASAL Q3-4H Do not use more than every 3 hours or 8 times/24hours 06/26/20 19 2021 Inactive Please do not auto refill. This refill negates all other refills of this medication buspirone 7.5 mg tablet RxNorm: 890229 1 Tablet(s) PO BID 06/26/20 19 2020 Inactive This refill negates all other refills of this medication hydrochlorothiazide 12.5 mg tablet RxNorm: 542347 1 Tablet(s) PO QAM 06/26/20 19 2019 Inactive Ventolin HFA 90 mcg/actuation aerosol inhaler RxNorm: 374637 2 Puff(s) INH QID 06/26/20 19 2018 Inactive Please do not fill early. Please do not auto refill. This refill negates all other refills of this medication Singulair 10 mg tablet RxNorm: 794276 1 Tablet(s) PO daily 06/26/20 19 2019 Inactive This refill negates all other refills of this medication cetirizine 10 mg tablet RxNorm: 4509222 1 Tablet(s) PO daily 06/26/20 19 2019 Inactive This refill negates all other refills of this medication. Please do not auto refill levothyroxine 50 mcg tablet RxNorm: 856851 1 Tablet(s) PO daily 06/26/20 19 2019 Inactive This refill negates all other refills of this medication diclofenac sodium 75 mg tablet,delayed release RxNorm: 520469 1 Tablet(s) PO BID 06/26/20 19 2019 Inactive This refill negates all other refills of this medication ranitidine 150 mg tablet RxNorm: 251433 1 Tablet(s) PO BID 06/26/20 2018 Inactive This refill negates all other refills of this medication Calcium 600-D3 Plus (mag-zinc) 600 mg calcium-800 unit-50 mg tablet RxNorm: 1 Tablet(s) PO daily take an additonal tablet for itching. 06/26/20 19 2018 Inactive This refill negates all other refills of this medication albuterol sulfate 2.5 mg/3 mL (0.083 %) solution for nebulization RxNorm: 847349 1 Vial INH QID 06/26/20 19 2018 Inactive 60/box. This refill negates all other refills of this medication. Please do not fill early. Please do not auto refill. lisinopril 2.5 mg tablet RxNorm: 523702 1 Tablet(s) PO daily 06/21/20 19 2019 Inactive gabapentin 300 mg capsule RxNorm: 010294 1 Capsule(s) PO TID 06/21/20 19 2019 Inactive atorvastatin 20 mg tablet RxNorm: 395469 1 Tablet(s) PO QHS 06/07/202018 Inactive This refill negates all other refills of this medication TRUEplus Lancets 30 gauge RxNorm: 1 Lancets Miscellaneous QAM 05/29/20 19 2018 Inactive 100/box gabapentin 300 mg capsule RxNorm: 271309 1 Capsule(s) PO TID 05/03/20 19 2018 Inactive Flintsmaury Complete (iron) 18 mg iron chewable tablet RxNorm: 1 Tablet(s) PO daily 04/04/202021 Inactive This refill negates all other refills of this medication gabapentin 300 mg capsule RxNorm: 104040 1 Capsule(s) PO TID as needed 02/01/20 19 2018 Inactive True Metrix Glucose Test Strip RxNorm: 1 Test Strips Miscellaneous QAM 02/01/20 19 2018 Inactive 100/container Alcohol Prep Pads RxNorm: 708511 1 Patch TOP QAM 02/01/20 19 2018 Inactive TRUEplus Lancets 30 gauge RxNorm: 1 Lancets Miscellaneous QAM 02/01/20 19 2018 Inactive 100/box lisinopril 2.5 mg tablet RxNorm: 514291 1 Tablet(s) PO daily 12/28/19 19 2018 Inactive ranitidine 150 mg tablet RxNorm: 929191 1 Tablet(s) PO BID 10/21/19 19 2018 Inactive This refill negates all other refills of this medication albuterol sulfate 2.5 mg/3 mL (0.083 %) solution for nebulization RxNorm: 656995 1 Vial INH QID 10/21/19 19 2018 [...] this medication gabapentin 300 mg capsule RxNorm: 952486 1 Capsule(s) PO TID as needed 10/21/19 19 2018 Inactive atorvastatin 20 mg tablet RxNorm: 560267 1 Tablet(s) PO QHS 10/21/192018 Inactive This refill negates all other refills of this medication trazodone 50 mg tablet RxNorm: 002665 1 Tablet(s) PO QHS 10/21/192018 Inactive This refill negates all other refills of this medication Ventolin HFA 90 mcg/actuation aerosol inhaler RxNorm: 594693 2 Puff(s) INH QID 10/21/192018 Inactive Please do not fill early. Please do not auto refill. This refill negates all other refills of this medication Calcium 600-D3 Plus 600 mg calcium-800 unit-50 mg tablet RxNorm: 1 Tablet(s) PO daily take an additonal tablet for itching. 10/21/192018 Inactive This refill negates all other refills of this medication Singulair 10 mg tablet RxNorm: 317436 1 Tablet(s) PO daily 01/2018 Inactive This refill negates all other refills of this medication buspirone 7.5 mg tablet RxNorm: 010975 1 Tablet(s) PO BID 10/21/19 19 2018 Inactive This refill negates all other refills of this medication diclofenac sodium 75 mg tablet,delayed release RxNorm: 710782 1 Tablet(s) PO BID 10/21/19 19 2018 Inactive This refill negates all other refills of this medication hydrochlorothiazide 12.5 mg tablet RxNorm: 890393 1 Tablet(s) PO QAM 10/21/19 19 2018 Inactive metoprolol succinate ER 50 mg tablet,extended release 24 hr RxNorm: 126815 1 Tablet(s) PO daily 10/21/192018 Inactive This refill negates all other refills of this medication levothyroxine 50 mcg tablet RxNorm: 237394 1 Tablet(s) PO daily 10/21/192018 Inactive This refill negates all other refills of this medication cetirizine 10 mg tablet RxNorm: 3836945 1 Tablet(s) PO daily 10/21/192018 Inactive This refill negates all other refills of this medication. Please do not auto refill Flintstones Complete (iron) 18 mg iron chewable tablet RxNorm: 1 Tablet(s) PO daily 10/21/192018 Inactive This refill negates all other refills of this medication buspirone 7.5 mg tablet RxNorm: 994642 1 Tablet(s) PO BID 10/12/192018 Inactive cetirizine 10 mg tablet RxNorm: 7681513 1 Tablet(s) PO daily 09/28/202018 Inactive Guaiasorb DM 10 mg-100 mg/5 mL oral liquid RxNorm: 642311 10 Milliliter(s) PO As needed every 4 hr 09/24/202018 Inactive Vicks Vaporub 4.7 %-1.2 %-2.6 % topical ointment RxNorm: 8798741 1 Application TOP TID 09/24/20 18 2018 Inactive levmetamfetamine 50 mg nasal inhaler RxNorm: 1 Unit(s) NASAL Q3-4H 09/24/20 18 2017 Inactive sertraline 50 mg tablet RxNorm: 552335 1 Tablet(s) PO daily 09/09/20 18 2018 Inactive Please note dose trazodone 50 mg tablet RxNorm: 742687 1 Tablet(s) PO QHS 09/06/20 18 2018 Inactive sertraline 50 mg tablet RxNorm: 358057 1 Tablet(s) PO daily 09/06/20 18 2017 Inactive amoxicillin 500 mg tablet RxNorm: 959303 1 Tablet(s) PO Q12H 08/31/20 18 2017 Inactive albuterol sulfate 2.5 mg/3 mL (0.083 %) solution for nebulization RxNorm: 720859 1 Vial INH QID 08/10/20 18 2018 Inactive 60/box. Please do not fill early. Please do not auto refill. Prozac 10 mg capsule RxNorm: 259634 1 Capsule(s) PO daily 08/09/20 18 2017 Inactive buspirone 7.5 mg tablet RxNorm: 194870 1 Tablet(s) PO BID 08/09/20 18 2018 Inactive gabapentin 300 mg capsule RxNorm: 441001 1 Capsule(s) PO TID as needed 08/01/20 18 2018 Inactive hydrochlorothiazide 12.5 mg tablet RxNorm: 038105 1 Tablet(s) PO QAM 08/01/20 18 2018 Inactive ranitidine 150 mg tablet RxNorm: 456398 1 Tablet(s) PO BID 08/01/20 18 2018 Inactive Macrobid 100 mg capsule RxNorm: 395263 1 Capsule(s) PO Q12H 06/21/20 18 2017 Inactive Singulair 10 mg tablet RxNorm: 384001 1 Tablet(s) PO daily 06/14/20 18 2018 Inactive Ventolin HFA 90 mcg/actuation aerosol inhaler RxNorm: 6728878 2 Puff(s) INH QID 06/14/20 18 2018 Inactive Singulair 10 mg tablet RxNorm: 833849 1 Tablet(s) PO daily 06/14/20 18 2017 Inactive buspirone 7.5 mg tablet RxNorm: 440506 1 Tablet(s) PO BID 06/14/20 18 2017 Inactive Prozac 10 mg capsule RxNorm: 794045 1 Capsule(s) PO daily 06/14/20 18 2017 Inactive Neilmed Pediatric Sinus Rinse Refill packet RxNorm: 1 Unit Dose NASAL PRN 05/31/20 18 2021 Inactive diclofenac sodium 75 mg tablet,delayed release RxNorm: 537761 1 Tablet(s) PO BID 05/31/20 18 2017 Inactive lisinopril 2.5 mg tablet RxNorm: 517136 1 Tablet(s) PO daily 05/31/20 18 2017 Inactive metoprolol succinate ER 50 mg tablet,extended release 24 hr RxNorm: 117901 1 Tablet(s) PO daily 05/31/20 18 2017 Inactive levothyroxine 50 mcg tablet RxNorm: 185265 1 Tablet(s) PO daily 05/31/20 18 2017 Inactive TRUEplus Lancets 30 gauge RxNorm: 1 Lancets Miscellaneous QAM 05/31/20 18 2017 Inactive 100/box Ventolin HFA 90 mcg/actuation aerosol inhaler RxNorm: 681112 2 Puff(s) INH QID 05/31/20 18 2017 Inactive Aleve 220 mg capsule RxNorm: 5648277 1 Capsule(s) PO BID 05/31/20 18 2018 Inactive ranitidine 150 mg tablet RxNorm: 887070 1 Tablet(s) PO BID 05/31/20 18 2017 Inactive gabapentin 300 mg capsule RxNorm: 506663 1 Capsule(s) PO TID as needed 05/31/20 18 2017 Inactive atorvastatin 20 mg tablet RxNorm: 807732 1 Tablet(s) PO QHS 05/31/20 18 2017 Inactive True Metrix Glucose Test Strip RxNorm: 1 Test Strips Miscellaneous QAM 05/31/20 18 2017 Inactive 50/container Calcium 600-D3 Plus 600 mg calcium-800 unit-50 mg tablet RxNorm: 1 Tablet(s) PO daily take an additonal tablet for itching. 05/31/20 18 2017 Inactive hydrochlorothiazide 12.5 mg tablet RxNorm: 403401 1 Tablet(s) PO QAM 05/31/20 18 2017 Inactive Flintstones Complete (iron) 18 mg iron chewable tablet RxNorm: 1 Tablet(s) PO daily 05/31/20 18 2017 Inactive d-mannose oral powder RxNorm: PO 18 2021 Inactive True Metrix Glucose Meter RxNorm: miscellaneous 08/17/20 19 2018 Inactive sertraline 50 mg tablet RxNorm: 637557 1 Tablet(s) PO daily 11/28/19 20 2019 Inactive loperamide 2 mg tablet RxNorm: 620322 oral 09/29/20 19 2018 Inactive Symbicort 160 mcg-4.5 mcg/actuation HFA aerosol inhaler RxNorm: 0612522 2 Puff(s) INH BID 08/17/20 19 2018 Inactive Medication Administered No Medication Administered data Procedures Procedure Codes Date Frailty Screening CPT-4: SFD 05/20/2021 Hypertension CPT-4: HTN 04/01/2021 Tobacco Assessment/Screening CPT-4: TCA 08/2021 Patient Health Questionnaire CPT-4: DPHQ 08/2021 Mini Mental State Exam CPT-4: DMMA Annual Wellness Visit (Subsequent Visit) CPT-4: G0439 01/13/2021 Advanced Care Planning CPT-4: VACP Fall Risk Assessment SNOMED CT: 08453129 4 CPT-4: DFRA 01/13/2021 [place] Assessment CPT-4: DSWA 12/01 Urinalysis, dip stick CPT-4: 47045 09/24/2020 Patient Health Questionnaire CPT-4: DPHQ Electrocardiogram CPT-4: 68004 05/14/2020 Tobacco Assessment/Screening CPT-4: TCA Fall Risk Assessment SNOMED CT: 49482923 4 CPT-4: DFRA 01/01/2020 Functional Assessment CPT-4: DFA 01/01/2020 [place] Assessment CPT-4: DSWA 11/04 Patient Health Questionnaire CPT-4: DPHQ [place] Assessment CPT-4: DSWA 10/03 Hypertension CPT-4: HTN 10/17/2019 Fall Risk Assessment SNOMED CT: 98245927 4 CPT-4: DFRA 09/19/2019 Functional Assessment CPT-4: DFA 09/19/2019 Urinalysis, dip stick CPT-4: 56920 06/21/2019 Tobacco Assessment/Screening CPT-4: TCA Patient Health Questionnaire CPT-4: DPHQ AHA/REBECCA Classification Assessment CPT-4: DAHA 04/25/2019 Controlled Substance Report CPT-4: CTRSU 04/03 Urinalysis, dip stick CPT-4: 41449 03/28/2019 Urinalysis, dip stick CPT-4: 65004 03/28/2019 E7D-Lnwpcpefyeqpjlx CPT-4: 10819 Unknown N1E-Kntwtaihgzwisoc CPT-4: 54704 Unknown Z5V-Opklfrkywhkzbww CPT-4: 37718 Unknown Q5I-Ieknkvyyzdqyxef CPT-4: 31815 Unknown R8G-Wpwvzqwmwztcsna CPT-4: 87278 Unknown U9S-Qweyelqxfnpiisv CPT-4: 31772 Unknown Q4U-Zohtocodqwvvypg CPT-4: 35665 Unknown Gynecology Referral SNOMED CT: 482333912 CPT-4: R14 Unknown Reason For Visit No Reason For Visit data Plan of Care Planned Activity Notes Codes Status Date Referral: Pending Gynecology Referral Information Referral Processed Referral: Pending Pulmonolog y Referral Information Referral Processed Referral: Pending Psychiatry Referral Information Referral Initiated Referral: Pending Respirator y Services Referral Information Referral Initiated Referral: Pending Ophthalmol ogy Referral Information Referral Initiated Referral: Romius Keeling [facility] WPtel: [address] [place] [address] [place] [employer] placed a call out to the patient to notify her that it has been recommended that she be seen by a urologist. Patient agreed to be seen, does not have a provider of choice and no transportation issues. [employer] faxed referral and clinical notes to [facility] in [place], [place] near the patient's home. Patient [...] seen and prefers a provider in the [place] or [place] area. [employer] placed a call out to everyone listed in the area and the only location that was able to accept the patient's insurance was [address] [address] and spoke with Maylin. Maylin asked that the patient's referral, face sheet and visit notes be faxed to . [employer] faxed over requested documents. Patient appointment confirmation letter generated and mailed to her home address. Patient to call to schedule an appointment. [facility] W[facility] [address] [place] [address] Patient notified that it has been advised that she be seen by Neurology. Patient agreed to be seen and prefers to be seen by a provider in the [place], [place] area. Patient denies any concerns with transportation, and prefers to schedule her own appointment. [employer] placed a call out to [facility] and spoke with Neeraj P: who confirmed that their office is able to accept new patients and the patient's insurance. After confirming the providers fax number, lead technical writer faxed over the patient's referral, [...]
--- OUTSIDE RECORDS SUMMARY | 2023-12-07 02:17 | XMS_ITS | CCD ---
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 Unknown Has never used illegal drugs 05/31/2018 DNR Order/ Advanced Directive Unknown Full Code 05/31/2018 Allergies, Adverse Reactions, Alerts Substance Reaction Codes Entered Date Inactivated Date Status OxyContin itch, RxNorm: 656008 01/13/2021 No Inactive Da te Active *No [...] ICD-10: R51 ICD-9: 784.0 10/03/2018 Inactive Other [facility]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 ICD-10: Z79.899 ICD-9: V58.69 04/25/2019 Inactive Type 2 diabetes mellitus wit hout complications ICD-10: E11.9 ICD-9: 250.00 10/03/2018 Inactive Wheezing ICD-10: R06.2 ICD-9: 786.07 08/08/2018 Inactive Abnormal urine finding ICD-10: R82.90 ICD-9: 791.9 09/24/2020 Resolved Abrasion of toe ICD-10: S90.416A ICD-9: 917.0 02/14/2020 Resolved Kerrick eye ICD-10: H10.029 ICD-9: 372.03 12/29/2019 Resolved [...] Fill Instructions lisinopril 2.5 mg tablet RxNorm: 611233 Take 1 Tablet(s) Oral every day 07/11/20 21 2020 Inactive hydrochlorothiazide 25 mg tablet RxNorm: 755199 Take 1 Tablet(s) Oral every day 06/12/20 21 2020 Inactive ondansetron 4 mg disintegrating tablet RxNorm: 642849 1 Tablet(s) Oral two times a day 06/10/20 21 2020 Inactive Sudafed 12 Hour 120 mg tablet,extended release RxNorm: 3405944 TAKE 1 TABLET BY MOUTH EVERY 12 HOURS NEEDED 06/01/20 21 2021 Inactive Heartburn Relief (famotidine) 10 mg tablet RxNorm: 028641 Take 1 Tablet(s) Oral every morning 05/07/20 21 2020 Inactive omeprazole 20 mg capsule,delayed release RxNorm: 704740 1 Capsule(s) Oral every evening 04/03/20 21 2020 Inactive sertraline 100 mg tablet RxNorm: 688898 2 Tablet(s) Oral every day 03/13/20 21 2020 Inactive levothyroxine 50 mcg tablet RxNorm: 016136 TAKE (1) TABLET BY MOUTH DAILY 02/04/20 21 2020 Inactive metformin 500 mg tablet RxNorm: 803963 1 Tablet(s) Oral two times a day take with 500mg to equal 1000mg 01/14/20 21 2020 Inactive gabapentin 300 mg capsule RxNorm: 317466 TAKE 1 CAPSULE BY MOUTH THREE TIMES A DAY 01/14/20 21 2020 Inactive lisinopril 2.5 mg tablet RxNorm: 937515 TAKE 1 TABLET BY MOUTH DAILY 01/06/20 21 2020 Inactive gabapentin 300 mg capsule RxNorm: 595061 TAKE 1 CAPSULE BY MOUTH THREE TIMES A DAY 01/06/20 21 2020 Inactive Singulair 10 mg tablet RxNorm: 616580 TAKE (1) TABLET BY MOUTH DAILY 01/06/20 21 2020 Inactive metformin 1,000 mg tablet RxNorm: 659374 1 Tablet(s) Oral two times a day 01/06/20 21 2020 Inactive atorvastatin 40 mg tablet RxNorm: 242301 1 Tablet(s) Oral every day 12/06/19 21 2020 Inactive omeprazole 20 mg capsule,delayed release RxNorm: 966734 1 Capsule(s) Oral every evening 11/24/19 21 2020 Inactive famotidine 10 mg tablet RxNorm: 547647 1 Tablet(s) Oral every morning 11/24/19 21 2020 Inactive Alcohol Prep Pads RxNorm: 955793 USE EACH MORNING 10/14/19 21 2020 Inactive omeprazole 20 mg capsule,delayed release RxNorm: 366938 1 Capsule(s) Oral two times a day 10/13/192021 Inactive omeprazole 20 mg capsule,delayed release RxNorm: 590244 TAKE 1 CAPSULE BY MOUTH EVERY DAY 10/08/192021 Inactive Macrobid 100 mg capsule RxNorm: 153172 1 Capsule(s) Oral every 12 hours with food 10/01/202020 Inactive omeprazole 20 mg capsule,delayed release RxNorm: 456330 1 Capsule(s) Oral two times a day 09/24/20 20 2021 Inactive metformin 1,000 mg tablet RxNorm: 122262 1 Tablet(s) Oral two times a day 08/19/20 20 2020 Inactive start on September 11, 2020 metformin 500 mg tablet RxNorm: 934439 1 Tablet(s) Oral two times a day take with 500mg to equal 1000mg 08/19/20 20 2019 Inactive gabapentin 300 mg capsule RxNorm: 135169 TAKE 1 CAPSULE BY MOUTH THREE TIMES DAILY 07/11/20 20 2020 Inactive cetirizine 10 mg tablet RxNorm: 2337311 TAKE (1) TABLET BY MOUTH DAILY 07/11/20 20 2020 Inactive metformin 500 mg tablet RxNorm: 116494 1 Tablet(s) Oral two times a day 07/08/20 20 2019 Inactive loperamide 2 mg tablet RxNorm: 257723 1 Tablet(s) Oral as needed take one tablet after each loose stool, maximum of 8 tablets in 24 hours 06/24/2001/ 2022 Inactive Sudafed 12 Hour 120 mg tablet,extended release RxNorm: 4321118 TAKE 1 TABLET BY MOUTH EVERY 12 HOURS NEEDED 06/11/20 20 2019 Inactive hydrochlorothiazide 25 mg tablet RxNorm: 962926 TAKE (1) TABLET BY MOUTH EVERY DAY 06/11/20 20 2019 Inactive omeprazole 20 mg capsule,delayed release RxNorm: 214860 TAKE 1 CAPSULE BY MOUTH EVERY DAY 05/14/20 20 2020 Inactive metformin 500 mg tablet RxNorm: 931782 1 Tablet(s) Oral every day 05/12/20 20 2019 Inactive True Metrix Glucose Test Strip RxNorm: 1 Test Strips Miscellaneous two times a day as needed 04/17/20 No Stop Date Active metformin 500 mg tablet RxNorm: 089835 1 Tablet(s) Oral every day 04/17/20 20 2019 Inactive diclofenac sodium 75 mg tablet,delayed release RxNorm: 706829 1 Tablet(s) PO BID 04/14/20 20 2021 Inactive This refill negates all other refills of this medication Sudafed 12 Hour 120 mg tablet,extended release RxNorm: 5103859 TAKE 1 TABLET BY MOUTH EVERY 12 HOURS NEEDED 03/14/20 20 2019 Inactive True Metrix Glucose Test Strip RxNorm: 1 Test Strips Miscellaneous every morning 03/13/20 20 2019 Inactive 100/container True Metrix Glucose Test Strip RxNorm: 1 Test Strips Miscellaneous [facility] 02/22/20 20 2019 Inactive 100/container loperamide 2 mg tablet RxNorm: 874203 1 Tablet(s) Oral as needed take one tablet after each loose stool, maximum of 8 tablets in 24 hours 02/22/20 20 2019 Inactive cetirizine 10 mg tablet RxNorm: 1049102 1 Tablet(s) PO daily 01/17/20 20 2019 Inactive loperamide 2 mg tablet RxNorm: 136854 1 Tablet(s) Oral as needed take one tablet after each loose stool, maximum of 8 tablets in 24 hours 01/17/20 20 2019 Inactive quetiapine 100 mg tablet RxNorm: 779337 1 Tablet(s) Oral every night at bedtime 01/17/20 20 2019 Inactive levothyroxine 50 mcg tablet RxNorm: 139910 1 Tablet(s) PO daily 01/17/20 20 2020 Inactive gabapentin 300 mg capsule RxNorm: 950590 1 Capsule(s) PO TID 01/17/20 20 2019 Inactive levothyroxine 50 mcg tablet RxNorm: 999438 1 Tablet(s) PO daily 01/15/20 20 2019 Inactive lisinopril 2.5 mg tablet RxNorm: 158326 1 Tablet(s) PO daily 01/15/20 20 2020 Inactive gabapentin 300 mg capsule RxNorm: 753975 1 Capsule(s) PO TID 01/15/20 20 2019 Inactive cetirizine 10 mg tablet RxNorm: 5744419 1 Tablet(s) PO daily 01/15/20 20 2019 Inactive Singulair 10 mg tablet RxNorm: 409769 1 Tablet(s) PO daily 01/15/20 20 2020 Inactive gentamicin 0.3 % eye drops RxNorm: 733009 1 Drop(s) ophthalmic (eye) four times a day 12/29/19 20 2019 Inactive gentamicin 0.3 % eye drops RxNorm: 617741 1 Drop(s) ophthalmic (eye) four times a day 12/29/19 20 2019 Inactive gentamicin 0.3 % eye drops RxNorm: 128777 1 Drop(s) ophthalmic (eye) four times a day 12/29/19 20 2019 Inactive hydrochlorothiazide 25 mg tablet RxNorm: 052403 1 Tablet(s) Oral every day 12/21/19 20 2019 Inactive Sudafed 12 Hour 120 mg tablet,extended release RxNorm: 0529619 TAKE (1) TABLET BY MOUTH EVERY 12 HOURS NEEDED 12/21/19 20 2019 Inactive loperamide 2 mg tablet RxNorm: 919803 1 Tablet(s) Oral as needed take one tablet after each loose stool, maximum of 8 tablets in 24 hours 12/11/19 20 2019 Inactive loperamide 2 mg tablet RxNorm: 880394 1 Tablet(s) Oral as needed take one tablet after each loose stool, maximum of 8 tablets in 24 hours 12/11/19 20 2019 Inactive atorvastatin 40 mg tablet RxNorm: 520255 1 Tablet(s) Oral every day 11/29/19 20 2020 Inactive quetiapine 100 mg tablet RxNorm: 546038 1 Tablet(s) Oral every night at bedtime 11/28/19 20 2019 Inactive sertraline 100 mg tablet RxNorm: 512898 1 Tablet(s) Oral 11/28/19 20 2019 Inactive omeprazole 20 mg capsule,delayed release RxNorm: 263978 1 Capsule(s) Oral every day 11/20/19 20 2019 Inactive amoxicillin 250 mg capsule RxNorm: 251251 1 Capsule(s) Oral three times a day 11/07/19 20 2019 Inactive multivitamin with iron-mineral tablet RxNorm: 1 Tablet(s) Oral every day 10/29/19 20 2021 Inactive cetirizine 10 mg tablet RxNorm: 4227621 1 Tablet(s) PO daily 10/20/19 20 2019 Inactive This refill negates all other refills of this medication. Please do not auto refill Singulair 10 mg tablet RxNorm: 236044 1 Tablet(s) PO daily 10/20/19 20 2019 Inactive This refill negates all other refills of this medication gabapentin 300 mg capsule RxNorm: 480294 1 Capsule(s) PO TID 10/20/19 20 2019 Inactive lisinopril 2.5 mg tablet RxNorm: 747142 1 Tablet(s) PO daily 10/20/19 20 2019 Inactive levothyroxine 50 mcg tablet RxNorm: 682714 1 Tablet(s) PO daily 10/20/19 20 2019 Inactive This refill negates all other refills of this medication fenugreek seed extract 500 mg capsule RxNorm: 1 Capsule(s) Oral three times a day 10/17/19 20 2021 Inactive hydrochlorothiazide 25 mg tablet RxNorm: 407451 1 Tablet(s) Oral every day 10/17/19 20 2019 Inactive Alcohol Prep Pads RxNorm: 844487 1 Patch TOP QAM 10/16/19 20 2020 Inactive loperamide 2 mg tablet RxNorm: 408860 1 Tablet(s) Oral as needed take one [...] 09/19/202019 Inactive hydrochlorothiazide 25 mg tablet RxNorm: 834544 1 Tablet(s) Oral every day 09/19/20 19 2019 Inactive Sudafed 12 Hour 120 mg tablet,extended release RxNorm: 0537483 1 Tablet(s) Oral every 12 hours as needed 09/11/20 19 2018 Inactive omeprazole 20 mg capsule,delayed release RxNorm: 029910 1 Capsule(s) Oral every day 09/07/20 19 2019 Inactive Sudafed 12 Hour 120 mg tablet,extended release RxNorm: 6781630 1 Tablet(s) Oral every 12 hours as needed 09/04/20 19 2018 Inactive pantoprazole 40 mg tablet,delayed release RxNorm: 876161 1 Tablet(s) Oral every day 08/24/202018 Inactive discontinue any other H2Blkr. and PPI albuterol sulfate 2.5 mg/3 mL (0.083 %) solution for nebulization RxNorm: 435973 1 Vial Inhalation every four hours as needed as needed for dyspnea 08/17/202019 Inactive 60/box. This refill negates all other refills of this medication. Please do not fill early. Please do not auto refill. Symbicort 160 mcg-4.5 mcg/actuation HFA aerosol inhaler RxNorm: 2367564 2 Puff(s) INH BID 08/17/20 19 No Stop Date Active Alcohol Prep Pads RxNorm: 482519 1 Patch TOP QAM 08/17/20 19 2019 Inactive Ventolin HFA 90 mcg/actuation aerosol inhaler RxNorm: 095358 2 Puff(s) INH QID 08/09/20 19 2019 Inactive Please do not fill early. Please do not auto refill. This refill negates all other refills of this medication True Metrix Glucose Test Strip RxNorm: 1 Test Strips Miscellaneous QAM 08/09/20 19 2019 Inactive 100/container atorvastatin 40 mg tablet RxNorm: 349190 1 Tablet(s) Oral every day 07/04/20 19 2019 Inactive levmetamfetamine 50 mg nasal inhaler RxNorm: 1 Unit(s) NASAL Q3-4H Do not use more than every 3 hours or 8 times/24hours 06/26/20 19 2021 Inactive Please do not auto refill. This refill negates all other refills of this medication buspirone 7.5 mg tablet RxNorm: 929604 1 Tablet(s) PO BID 06/26/20 19 2020 Inactive This refill negates all other refills of this medication hydrochlorothiazide 12.5 mg tablet RxNorm: 304283 1 Tablet(s) PO QAM 06/26/20 19 2019 Inactive Ventolin HFA 90 mcg/actuation aerosol inhaler RxNorm: 300331 2 Puff(s) INH QID 06/26/20 19 2018 Inactive Please do not fill early. Please do not auto refill. This refill negates all other refills of this medication Singulair 10 mg tablet RxNorm: 315914 1 Tablet(s) PO daily 06/26/20 19 2019 Inactive This refill negates all other refills of this medication cetirizine 10 mg tablet RxNorm: 3035701 1 Tablet(s) PO daily 06/26/20 19 2019 Inactive This refill negates all other refills of this medication. Please do not auto refill levothyroxine 50 mcg tablet RxNorm: 044768 1 Tablet(s) PO daily 06/26/20 19 2019 Inactive This refill negates all other refills of this medication diclofenac sodium 75 mg tablet,delayed release RxNorm: 574919 1 Tablet(s) PO BID 06/26/20 19 2019 Inactive This refill negates all other refills of this medication ranitidine 150 mg tablet RxNorm: 086374 1 Tablet(s) PO BID 06/26/20 19 2018 Inactive This refill negates all other refills of this medication Calcium 600-D3 Plus (mag-zinc) 600 mg calcium-800 unit-50 mg tablet RxNorm: 1 Tablet(s) PO daily take an additonal tablet for itching. 06/26/20 19 2018 Inactive This refill negates all other refills of this medication albuterol sulfate 2.5 mg/3 mL (0.083 %) solution for nebulization RxNorm: 965056 1 Vial INH QID 06/26/20 19 2018 Inactive 60/box. This refill negates all other refills of this medication. Please do not fill early. Please do not auto refill. lisinopril 2.5 mg tablet RxNorm: 440097 1 Tablet(s) PO daily 06/21/20 19 2019 Inactive gabapentin 300 mg capsule RxNorm: 397643 1 Capsule(s) PO TID 06/21/20 19 2019 Inactive atorvastatin 20 mg tablet RxNorm: 567333 1 Tablet(s) PO QHS 06/07/20 19 2018 Inactive This refill negates all other refills of this medication TRUEplus Lancets 30 gauge RxNorm: 1 Lancets Miscellaneous QAM 05/29/20 19 2018 Inactive 100/box gabapentin 300 mg capsule RxNorm: 771566 1 Capsule(s) PO TID 05/03/20 19 2018 Inactive Flintstones Complete (iron) 18 mg iron chewable tablet RxNorm: 1 Tablet(s) PO daily 04/04/202021 Inactive This refill negates all other refills of this medication gabapentin 300 mg capsule RxNorm: 929843 1 Capsule(s) PO TID as needed 02/01/202018 Inactive True Metrix Glucose Test Strip RxNorm: 1 Test Strips Miscellaneous QAM 02/01/20 19 2018 Inactive 100/container Alcohol Prep Pads RxNorm: 653833 1 Patch TOP QAM 02/01/202018 Inactive TRUEplus Lancets 30 gauge RxNorm: 1 Lancets Miscellaneous QAM 02/01/20 19 2018 Inactive 100/box lisinopril 2.5 mg tablet RxNorm: 887677 1 Tablet(s) PO daily 12/28/192018 Inactive ranitidine 150 mg tablet RxNorm: 695876 1 Tablet(s) PO BID 10/21/192018 Inactive This refill negates all other refills of this medication albuterol sulfate 2.5 mg/3 mL (0.083 %) solution for nebulization RxNorm: 046779 1 Vial INH QID 10/21/192018 Inactive 60/box. [...] this medication gabapentin 300 mg capsule RxNorm: 606790 1 Capsule(s) PO TID as needed 10/21/192018 Inactive atorvastatin 20 mg tablet RxNorm: 163204 1 Tablet(s) PO QHS 10/21/192018 Inactive This refill negates all other refills of this medication trazodone 50 mg tablet RxNorm: 183033 1 Tablet(s) PO QHS 10/21/19 19 2018 Inactive This refill negates all other refills of this medication Ventolin HFA 90 mcg/actuation aerosol inhaler RxNorm: 502157 2 Puff(s) INH QID 10/21/19 19 2018 [...] this medication Singulair 10 mg tablet RxNorm: 777412 1 Tablet(s) PO daily 10/21/19 19 2018 Inactive This refill negates all other refills of this medication buspirone 7.5 mg tablet RxNorm: 889918 1 Tablet(s) PO BID 10/21/192018 Inactive This refill negates all other refills of this medication diclofenac sodium 75 mg tablet,delayed release RxNorm: 610948 1 Tablet(s) PO BID 10/21/19 19 2018 Inactive This refill negates all other refills of this medication hydrochlorothiazide 12.5 mg tablet RxNorm: 392882 1 Tablet(s) PO QAM 10/21/192018 Inactive metoprolol succinate ER 50 mg tablet,extended release 24 hr RxNorm: 805838 1 Tablet(s) PO daily 10/21/192018 Inactive This refill negates all other refills of this medication levothyroxine 50 mcg tablet RxNorm: 753925 1 Tablet(s) PO daily 10/21/192018 Inactive This refill negates all other refills of this medication cetirizine 10 mg tablet RxNorm: 1349917 1 Tablet(s) PO daily 10/21/192018 Inactive This refill negates all other refills of this medication. Please do not auto refill Flintstones Complete (iron) 18 mg iron chewable tablet RxNorm: 1 Tablet(s) PO daily 10/21/192018 Inactive This refill negates all other refills of this medication buspirone 7.5 mg tablet RxNorm: 521625 1 Tablet(s) PO BID 10/12/19 19 2018 Inactive cetirizine 10 mg tablet RxNorm: 9461790 1 Tablet(s) PO daily 09/28/20 18 2018 Inactive Guaiasorb DM 10 mg-100 mg/5 mL oral liquid RxNorm: 101790 10 Milliliter(s) PO As needed every 4 hr 09/24/20 18 2018 Inactive Vicks Vaporub 4.7 %-1.2 %-2.6 % topical ointment RxNorm: 9531285 1 Application TOP TID 09/24/20 18 2018 Inactive levmetamfetamine 50 mg nasal inhaler RxNorm: 1 Unit(s) NASAL Q3-4H 09/24/20 18 2017 Inactive sertraline 50 mg tablet RxNorm: 845808 1 Tablet(s) PO daily 09/09/20 18 2018 Inactive Please note dose trazodone 50 mg tablet RxNorm: 566162 1 Tablet(s) PO QHS 09/06/20 18 2018 Inactive sertraline 50 mg tablet RxNorm: 386967 1 Tablet(s) PO daily 09/06/20 18 2017 Inactive amoxicillin 500 mg tablet RxNorm: 910143 1 Tablet(s) PO Q12H 08/31/20 18 2017 Inactive albuterol sulfate 2.5 mg/3 mL (0.083 %) solution for nebulization RxNorm: 326357 1 Vial INH QID 08/10/20 18 2018 Inactive 60/box. Please do not fill early. Please do not auto refill. Prozac 10 mg capsule RxNorm: 822814 1 Capsule(s) PO daily 08/09/20 18 2017 Inactive buspirone 7.5 mg tablet RxNorm: 934468 1 Tablet(s) PO BID 08/09/20 18 2018 Inactive gabapentin 300 mg capsule RxNorm: 276718 1 Capsule(s) PO TID as needed 08/01/20 18 2018 Inactive hydrochlorothiazide 12.5 mg tablet RxNorm: 075206 1 Tablet(s) PO QAM 08/01/20 18 2018 Inactive ranitidine 150 mg tablet RxNorm: 662822 1 Tablet(s) PO BID 08/01/20 18 2018 Inactive Macrobid 100 mg capsule RxNorm: 635472 1 Capsule(s) PO Q12H 06/21/20 18 2017 Inactive Singulair 10 mg tablet RxNorm: 470231 1 Tablet(s) PO daily 06/14/20 18 2018 Inactive Ventolin HFA 90 mcg/actuation aerosol inhaler RxNorm: 7460360 2 Puff(s) INH QID 06/14/20 18 2018 Inactive Singulair 10 mg tablet RxNorm: 873016 1 Tablet(s) PO daily 06/14/20 18 2017 Inactive buspirone 7.5 mg tablet RxNorm: 354779 1 Tablet(s) PO BID 06/14/20 18 2017 Inactive Prozac 10 mg capsule RxNorm: 009595 1 Capsule(s) PO daily 06/14/20 18 2017 Inactive Neilmed Pediatric Sinus Rinse Refill packet RxNorm: 1 Unit Dose NASAL PRN 05/31/20 18 2021 Inactive diclofenac sodium 75 mg tablet,delayed release RxNorm: 782252 1 Tablet(s) PO BID 05/31/20 18 2017 Inactive lisinopril 2.5 mg tablet RxNorm: 723659 1 Tablet(s) PO daily 05/31/20 18 2017 Inactive metoprolol succinate ER 50 mg tablet,extended release 24 hr RxNorm: 570659 1 Tablet(s) PO daily 05/31/20 18 2017 Inactive levothyroxine 50 mcg tablet RxNorm: 772985 1 Tablet(s) PO daily 05/31/20 18 2017 Inactive TRUEplus Lancets 30 gauge RxNorm: 1 Lancets Miscellaneous QAM 05/31/20 18 2017 Inactive 100/box Ventolin HFA 90 mcg/actuation aerosol inhaler RxNorm: 829026 2 Puff(s) INH QID 05/31/20 18 2017 Inactive Aleve 220 mg capsule RxNorm: 9353682 1 Capsule(s) PO BID 05/31/20 18 2018 Inactive ranitidine 150 mg tablet RxNorm: 557893 1 Tablet(s) PO BID 05/31/20 18 2017 Inactive gabapentin 300 mg capsule RxNorm: 245680 1 Capsule(s) PO TID as needed 05/31/20 18 2017 Inactive atorvastatin 20 mg tablet RxNorm: 819607 1 Tablet(s) PO QHS 05/31/20 18 2017 Inactive True Metrix Glucose Test Strip RxNorm: 1 Test Strips Miscellaneous QAM 05/31/20 18 2017 Inactive 50/container Calcium 600-D3 Plus 600 mg calcium-800 unit-50 mg tablet RxNorm: 1 Tablet(s) PO daily take an additonal tablet for itching. 05/31/20 18 2017 Inactive hydrochlorothiazide 12.5 mg tablet RxNorm: 291029 1 Tablet(s) PO QAM 05/31/20 18 2017 Inactive Flintstones Complete (iron) 18 mg iron chewable tablet RxNorm: 1 Tablet(s) PO daily 05/31/20 18 2017 Inactive d-mannose oral powder RxNorm: PO 18 2021 Inactive True Metrix Glucose Meter RxNorm: miscellaneous 08/17/20 19 2018 Inactive sertraline 50 mg tablet RxNorm: 185907 1 Tablet(s) PO daily 11/28/19 20 2019 Inactive loperamide 2 mg tablet RxNorm: 965104 oral 09/29/20 19 2018 Inactive Symbicort 160 mcg-4.5 mcg/actuation HFA aerosol inhaler RxNorm: 8896373 2 Puff(s) INH BID 08/17/20 19 2018 Inactive Medication Administered No Medication Administered data Procedures Procedure Codes Date Frailty Screening CPT-4: SFD 05/20/2021 Hypertension CPT-4: HTN 04/01/2021 Tobacco Assessment/Screening CPT-4: TCA 08/2021 Patient Health Questionnaire CPT-4: DPHQ 08/2021 Mini Mental State Exam CPT-4: DMMA 1 Annual Wellness Visit (Subsequent Visit) CPT-4: G0439 01/13/2021 Advanced Care Planning CPT-4: VACP Fall Risk Assessment SNOMED CT: 16482588 4 CPT-4: DFRA 01/13/2021 [place] Assessment CPT-4: DSWA 12/01 Urinalysis, dip stick CPT-4: 03902 09/24/2020 Patient Health Questionnaire CPT-4: DPHQ Electrocardiogram CPT-4: 57100 05/14/2020 Tobacco Assessment/Screening CPT-4: TCA Fall Risk Assessment SNOMED CT: 45796030 4 CPT-4: DFRA 01/01/2020 Functional Assessment CPT-4: DFA 01/01/2020 [place] Fany Assessment CPT-4: DSWA 11/04 Patient Health Questionnaire CPT-4: DPHQ [place] Assessment CPT-4: DSWA 10/03 Hypertension CPT-4: HTN 10/17/2019 Fall Risk Assessment SNOMED CT: 44814381 4 CPT-4: DFRA 09/19/2019 Functional Assessment CPT-4: DFA 09/19/2019 Urinalysis, dip stick CPT-4: 45744 06/21/2019 Tobacco Assessment/Screening CPT-4: TCA Patient Health Questionnaire CPT-4: DPHQ AHA/REBECCA Classification Assessment CPT-4: DAHA 04/25/2019 Controlled Substance Report CPT-4: CTRSU 04/03 Urinalysis, dip stick CPT-4: 92921 03/28/2019 Urinalysis, dip stick CPT-4: 79483 03/28/2019 R3E-Ifuqzlosleylarw CPT-4: 22944 Unknown D6K-Fbqjqdraxkrbgdc CPT-4: 81953 Unknown K0P-Yeerjdyhlcybqga CPT-4: 02458 Unknown H3G-Bdynatefmepdnme CPT-4: 31663 Unknown Y0B-Xfyanhcwtbenldt CPT-4: 12540 Unknown B5A-Qierqqahwzboijh CPT-4: 00455 Unknown C8W-Ybhfvzrhrybozof CPT-4: 97600 Unknown Gynecology Referral SNOMED CT: 174750148 CPT-4: R14 Unknown Reason For Visit No Reason For Visit data Plan of Care Planned Activity Notes Codes Status Date Referral: Pending Gynecology Referral Information Referral Processed Referral: Pending Pulmonolog y Referral Information Referral Processed Referral: Pending Psychiatry Referral Information Referral Initiated Referral: Pending Respirator y Services Referral Information Referral Initiated Referral: Pending Ophthalmol ogy Referral Information Referral Initiated Referral: [facility][1] WPtel: [phone] [facility] [address] Medicare Contact Specialist placed a call out to the patient to notify her that it has been recommended that she be seen by a urologist. Patient agreed to be seen, does not have a provider of choice and no transportation issues. Medicare Contact Specialist faxed referral and clinical notes to [facility] in [place], [place] near the patient's home. Patient to [...] seen and prefers a provider in the [place] or [place] area. Medicare Contact Specialist placed a call out to everyone listed in the area and the only location that was able to accept the patient's insurance was [address] [address] and spoke with aMylin. Maylin asked that the patient's referral, face sheet and visit notes be faxed to . Medicare Contact Specialist faxed over requested documents. Patient appointment confirmation letter generated and mailed to her home address. Patient to call to schedule an appointment. Processed Referral: [facility] WPtel: [phone] [facility] [address] [place] [address] Patient notified that it has been advised that she be seen by Neurology. Patient agreed to be seen and prefers to be seen by a provider in the [place], [place] area. Patient denies any concerns with transportation, and prefers to schedule her own appointment. Medicare Contact Specialist [facility] and spoke with [...]
--- OUTSIDE RECORDS SUMMARY | 2023-12-07 02:17 | XMS_ITS | CCD ---
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 Dev Manager Name Role Phone Palomo KING, Anna Primary Care Provider Unav ailable Unavailable Chronic Care Management Unavaila ble Summary Purpose DataExchange Insurance Providers Payer name Policy type / Coverage type Covered republican ID Effective Begin Date Effective End Date SUKI MAYO [id number] Unknown Unknown Family history Mother Diagnosis Age [...] Unknown Disability 05/31/[address]: 012651428 Has never s moked or chewed tobacco 05/31/[address]: 896248790 Never drinks alco hol 05/31/2018 Has the patient ever used illegal drugs? Unknown Has never used illegal drugs 05/31/2018 DNR Order/ Advanced Directive Unknown Full Code 05/31/2018 Allergies, Adverse Reactions, Alerts Substance Reaction Codes Entered Date Inactivated Date Status OxyContin itch, RxNorm: 617771 01/13/2021 No Inactive Da te Active *No [...] ICD-10: R51 ICD-9: 784.0 10/03/2018 Inactive Other alf (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 ICD-10: Z79.899 ICD-9: V58.69 04/25/2019 Inactive Type 2 diabetes mellitus wit hout complications ICD-10: E11.9 ICD-9: 250.00 10/03/2018 Inactive Wheezing ICD-10: R06.2 ICD-9: 786.07 08/08/2018 Inactive Abnormal urine finding ICD-10: R82.90 ICD-9: 791.9 09/24/2020 Resolved Abrasion of toe ICD-10: S90.416A ICD-9: 917.0 02/14/2020 Resolved [place] eye ICD-10: H10.029 ICD-9: 372.03 12/29/2019 Resolved [...] Fill Instructions hydrochlorothiazide 25 mg tablet RxNorm: 429953 Take 1 Tablet(s) Oral every day 06/12/20 21 2020 Inactive ondansetron 4 mg disintegrating tablet RxNorm: 442620 1 Tablet(s) Oral two times a day 06/10/20 21 2020 Inactive Sudafed 12 Hour 120 mg tablet,extended release RxNorm: 1971379 TAKE 1 TABLET BY MOUTH EVERY 12 HOURS NEEDED 06/01/20 21 2021 Inactive Heartburn Relief (famotidine) 10 mg tablet RxNorm: 496861 Take 1 Tablet(s) Oral every morning 05/07/20 21 2020 Inactive omeprazole 20 mg capsule,delayed release RxNorm: 187055 1 Capsule(s) Oral every evening 04/03/20 21 2020 Inactive sertraline 100 mg tablet RxNorm: 973983 2 Tablet(s) Oral every day 03/13/20 21 2020 Inactive levothyroxine 50 mcg tablet RxNorm: 967699 TAKE (1) TABLET BY MOUTH DAILY 02/04/20 21 2020 Inactive metformin 500 mg tablet RxNorm: 193388 1 Tablet(s) Oral two times a day take with 500mg to equal 1000mg 01/14/20 21 2020 Inactive gabapentin 300 mg capsule RxNorm: 888876 TAKE 1 CAPSULE BY MOUTH THREE TIMES A DAY 01/14/20 21 2020 Inactive lisinopril 2.5 mg tablet RxNorm: 091288 TAKE 1 TABLET BY MOUTH DAILY 01/06/20 21 2020 Inactive gabapentin 300 mg capsule RxNorm: 436234 TAKE 1 CAPSULE BY MOUTH THREE TIMES A DAY 01/06/20 21 2020 Inactive Singulair 10 mg tablet RxNorm: 728308 TAKE (1) TABLET BY MOUTH DAILY 01/06/20 21 2020 Inactive metformin 1,000 mg tablet RxNorm: 099160 1 Tablet(s) Oral two times a day 01/06/20 21 2020 Inactive atorvastatin 40 mg tablet RxNorm: 278141 1 Tablet(s) Oral every day 12/06/19 21 2020 Inactive omeprazole 20 mg capsule,delayed release RxNorm: 067708 1 Capsule(s) Oral every evening 11/24/19 21 2020 Inactive famotidine 10 mg tablet RxNorm: 516595 1 Tablet(s) Oral every morning 11/24/19 21 2020 Inactive Alcohol Prep Pads RxNorm: 757597 USE EACH MORNING 10/14/19 21 2020 Inactive omeprazole 20 mg capsule,delayed release RxNorm: 058299 1 Capsule(s) Oral two times a day 10/13/19 21 2021 Inactive omeprazole 20 mg capsule,delayed release RxNorm: 522005 TAKE 1 CAPSULE BY MOUTH EVERY DAY 10/08/192021 Inactive Macrobid 100 mg capsule RxNorm: 283526 1 Capsule(s) Oral every 12 hours with food 10/01/202020 Inactive omeprazole 20 mg capsule,delayed release RxNorm: 359764 1 Capsule(s) Oral two times a day 09/24/20 20 2021 Inactive metformin 1,000 mg tablet RxNorm: 851472 1 Tablet(s) Oral two times a day 08/19/20 20 2020 Inactive start on September 11, 2020 metformin 500 mg tablet RxNorm: 403616 1 Tablet(s) Oral two times a day take with 500mg to equal 1000mg 08/19/20 20 2019 Inactive gabapentin 300 mg capsule RxNorm: 087505 TAKE 1 CAPSULE BY MOUTH THREE TIMES DAILY 07/11/20 20 2020 Inactive cetirizine 10 mg tablet RxNorm: 7654085 TAKE (1) TABLET BY MOUTH DAILY 07/11/20 20 2020 Inactive metformin 500 mg tablet RxNorm: 418696 1 Tablet(s) Oral two times a day 07/08/20 20 2019 Inactive loperamide 2 mg tablet RxNorm: 503781 1 Tablet(s) Oral as needed take one tablet after each loose stool, maximum of 8 tablets in 24 hours 06/24/20 20 2021 Inactive Sudafed 12 Hour 120 mg tablet,extended release RxNorm: 7268808 TAKE 1 TABLET BY MOUTH EVERY 12 HOURS NEEDED 06/11/20 20 2019 Inactive hydrochlorothiazide 25 mg tablet RxNorm: 218045 TAKE (1) TABLET BY MOUTH EVERY DAY 06/11/20 20 2019 Inactive omeprazole 20 mg capsule,delayed release RxNorm: 736520 TAKE 1 CAPSULE BY MOUTH EVERY DAY 05/14/20 20 2020 Inactive metformin 500 mg tablet RxNorm: 445954 1 Tablet(s) Oral every day 05/12/20 20 2019 Inactive True Metrix Glucose Test Strip RxNorm: 1 Test Strips Miscellaneous two times a day as needed 04/17/20 No Stop Date Active metformin 500 mg tablet RxNorm: 596778 1 Tablet(s) Oral every day 04/17/20 20 2019 Inactive diclofenac sodium 75 mg tablet,delayed release RxNorm: 092346 1 Tablet(s) PO BID 04/14/20 20 2021 Inactive This refill negates all other refills of this medication Sudafed 12 Hour 120 mg tablet,extended release RxNorm: 9758160 TAKE 1 TABLET BY MOUTH EVERY 12 HOURS NEEDED 03/14/20 20 2019 Inactive True Metrix Glucose Test Strip RxNorm: 1 Test Strips Miscellaneous every morning 03/13/20 20 2019 Inactive 100/container True Metrix Glucose Test Strip RxNorm: 1 Test Strips Miscellaneous QA 02/22/20 20 2019 Inactive 100/container loperamide 2 mg tablet RxNorm: 915237 1 Tablet(s) Oral as needed take one tablet after each loose stool, maximum of 8 tablets in 24 hours 02/22/20 20 2019 Inactive cetirizine 10 mg tablet RxNorm: 1534503 1 Tablet(s) PO daily 01/17/20 20 2019 Inactive loperamide 2 mg tablet RxNorm: 115259 1 Tablet(s) Oral as needed take one tablet after each loose stool, maximum of 8 tablets in 24 hours 01/17/20 20 2019 Inactive quetiapine 100 mg tablet RxNorm: 195390 1 Tablet(s) Oral every night at bedtime 01/17/20 20 2019 Inactive levothyroxine 50 mcg tablet RxNorm: 947619 1 Tablet(s) PO daily 01/17/20 20 2020 Inactive gabapentin 300 mg capsule RxNorm: 296548 1 Capsule(s) PO TID 01/17/20 20 2019 Inactive levothyroxine 50 mcg tablet RxNorm: 980675 1 Tablet(s) PO daily 01/15/20 20 2019 Inactive lisinopril 2.5 mg tablet RxNorm: 676973 1 Tablet(s) PO daily 01/15/20 20 2020 Inactive gabapentin 300 mg capsule RxNorm: 350476 1 Capsule(s) PO TID 01/15/20 20 2019 Inactive cetirizine 10 mg tablet RxNorm: 7155044 1 Tablet(s) PO daily 01/15/20 20 2019 Inactive Singulair 10 mg tablet RxNorm: 991703 1 Tablet(s) PO daily 01/15/20 20 2020 Inactive gentamicin 0.3 % eye drops RxNorm: 709598 1 Drop(s) ophthalmic (eye) four times a day 12/29/19 20 2019 Inactive gentamicin 0.3 % eye drops RxNorm: 689154 1 Drop(s) ophthalmic (eye) four times a day 12/29/19 20 2019 Inactive gentamicin 0.3 % eye drops RxNorm: 281306 1 Drop(s) ophthalmic (eye) four times a day 12/29/19 20 2019 Inactive hydrochlorothiazide 25 mg tablet RxNorm: 589465 1 Tablet(s) Oral every day 12/21/19 20 2019 Inactive Sudafed 12 Hour 120 mg tablet,extended release RxNorm: 7111809 TAKE (1) TABLET BY MOUTH EVERY 12 HOURS NEEDED 12/21/19 20 2019 Inactive loperamide 2 mg tablet RxNorm: 871086 1 Tablet(s) Oral as needed take one tablet after each loose stool, maximum of 8 tablets in 24 hours 12/11/19 20 2019 Inactive loperamide 2 mg tablet RxNorm: 042330 1 Tablet(s) Oral as needed take one tablet after each loose stool, maximum of 8 tablets in 24 hours 12/11/19 20 2019 Inactive atorvastatin 40 mg tablet RxNorm: 329206 1 Tablet(s) Oral every day 11/29/19 20 2020 Inactive quetiapine 100 mg tablet RxNorm: 363669 1 Tablet(s) Oral every night at bedtime 11/28/19 20 2019 Inactive sertraline 100 mg tablet RxNorm: 105198 1 Tablet(s) Oral 11/28/19 20 2019 Inactive omeprazole 20 mg capsule,delayed release RxNorm: 222407 1 Capsule(s) Oral every day 11/20/19 20 2019 Inactive amoxicillin 250 mg capsule RxNorm: 195975 1 Capsule(s) Oral three times a day 11/07/19 20 2019 Inactive multivitamin with iron-mineral tablet RxNorm: 1 Tablet(s) Oral every day 10/29/19 20 2021 Inactive cetirizine 10 mg tablet RxNorm: 6279689 1 Tablet(s) PO daily 10/20/19 20 2019 Inactive This refill negates all other refills of this medication. Please do not auto refill Singulair 10 mg tablet RxNorm: 098953 1 Tablet(s) PO daily 10/20/19 20 2019 Inactive This refill negates all other refills of this medication gabapentin 300 mg capsule RxNorm: 767569 1 Capsule(s) PO TID 10/20/19 20 2019 Inactive lisinopril 2.5 mg tablet RxNorm: 350085 1 Tablet(s) PO daily 10/20/19 20 2019 Inactive levothyroxine 50 mcg tablet RxNorm: 743552 1 Tablet(s) PO daily 10/20/19 20 2019 Inactive This refill negates all other refills of this medication fenugreek seed extract 500 mg capsule RxNorm: 1 Capsule(s) Oral three times a day 10/17/19 20 2021 Inactive hydrochlorothiazide 25 mg tablet RxNorm: 909526 1 Tablet(s) Oral every day 10/17/19 20 2019 Inactive Alcohol Prep Pads RxNorm: 006011 1 Patch TOP QAM 10/16/19 20 2020 Inactive loperamide 2 mg tablet RxNorm: 390174 1 Tablet(s) Oral as needed take one [...] 2019 Inactive hydrochlorothiazide 25 mg tablet RxNorm: 402838 1 Tablet(s) Oral every day 09/19/20 19 2019 Inactive Sudafed 12 Hour 120 mg tablet,extended release RxNorm: 9628831 1 Tablet(s) Oral every 12 hours as needed 09/11/20 19 2018 Inactive omeprazole 20 mg capsule,delayed release RxNorm: 125536 1 Capsule(s) Oral every day 09/07/20 19 2019 Inactive Sudafed 12 Hour 120 mg tablet,extended release RxNorm: 5120250 1 Tablet(s) Oral every 12 hours as needed 09/04/20 19 2018 Inactive pantoprazole 40 mg tablet,delayed release RxNorm: 336270 1 Tablet(s) Oral every day 08/24/20 19 2018 Inactive discontinue any other H2Blkr. and PPI albuterol sulfate 2.5 mg/3 mL (0.083 %) solution for nebulization RxNorm: 336599 1 Vial Inhalation every four hours as needed as needed for dyspnea 08/17/20 19 2019 Inactive 60/box. This refill negates all other refills of this medication. Please do not fill early. Please do not auto refill. Symbicort 160 mcg-4.5 mcg/actuation HFA aerosol inhaler RxNorm: 9339129 2 Puff(s) INH BID 08/17/20 19 No Stop Date Active Alcohol Prep Pads RxNorm: 344424 1 Patch TOP QAM 08/17/20 19 2019 Inactive Ventolin HFA 90 mcg/actuation aerosol inhaler RxNorm: 004138 2 Puff(s) INH QID 08/09/20 19 2019 Inactive Please do not fill early. Please do not auto refill. This refill negates all other refills of this medication True Metrix Glucose Test Strip RxNorm: 1 Test Strips Miscellaneous QAM 08/09/20 19 2019 Inactive 100/container atorvastatin 40 mg tablet RxNorm: 475525 1 Tablet(s) Oral every day 07/04/20 19 2019 Inactive levmetamfetamine 50 mg nasal inhaler RxNorm: 1 Unit(s) NASAL Q3-4H Do not use more than every 3 hours or 8 times/24hours 06/26/20 19 2021 Inactive Please do not auto refill. This refill negates all other refills of this medication buspirone 7.5 mg tablet RxNorm: 377721 1 Tablet(s) PO BID 06/26/20 19 2020 Inactive This refill negates all other refills of this medication hydrochlorothiazide 12.5 mg tablet RxNorm: 875565 1 Tablet(s) PO QAM 06/26/20 19 2019 Inactive Ventolin HFA 90 mcg/actuation aerosol inhaler RxNorm: 464601 2 Puff(s) INH QID 06/26/20 19 2018 Inactive Please do not fill early. Please do not auto refill. This refill negates all other refills of this medication Singulair 10 mg tablet RxNorm: 686891 1 Tablet(s) PO daily 06/26/20 19 2019 Inactive This refill negates all other refills of this medication cetirizine 10 mg tablet RxNorm: 8791014 1 Tablet(s) PO daily 06/26/20 19 2019 Inactive This refill negates all other refills of this medication. Please do not auto refill levothyroxine 50 mcg tablet RxNorm: 386935 1 Tablet(s) PO daily 06/26/20 19 2019 Inactive This refill negates all other refills of this medication diclofenac sodium 75 mg tablet,delayed release RxNorm: 111646 1 Tablet(s) PO BID 06/26/20 19 2019 Inactive This refill negates all other refills of this medication ranitidine 150 mg tablet RxNorm: 863176 1 Tablet(s) PO BID 06/26/20 19 2018 Inactive This refill negates all other refills of this medication Calcium 600-D3 Plus (mag-zinc) 600 mg calcium-800 unit-50 mg tablet RxNorm: 1 Tablet(s) PO daily take an additonal tablet for itching. 06/26/20 19 2018 Inactive This refill negates all other refills of this medication albuterol sulfate 2.5 mg/3 mL (0.083 %) solution for nebulization RxNorm: 180798 1 Vial INH QID 06/26/20 19 2018 Inactive 60/box. This refill negates all other refills of this medication. Please do not fill early. Please do not auto refill. lisinopril 2.5 mg tablet RxNorm: 944380 1 Tablet(s) PO daily 06/21/20 19 2019 Inactive gabapentin 300 mg capsule RxNorm: 531170 1 Capsule(s) PO TID 06/21/20 19 2019 Inactive atorvastatin 20 mg tablet RxNorm: 343876 1 Tablet(s) PO QHS 06/07/202018 Inactive This refill negates all other refills of this medication TRUEplus Lancets 30 gauge RxNorm: 1 Lancets Miscellaneous QAM 05/29/20 19 2018 Inactive 100/box gabapentin 300 mg capsule RxNorm: 006937 1 Capsule(s) PO TID 05/03/20 19 2018 Inactive Flintstones Complete (iron) 18 mg iron chewable tablet RxNorm: 1 Tablet(s) PO daily 04/04/20 19 2021 Inactive This refill negates all other refills of this medication gabapentin 300 mg capsule RxNorm: 557103 1 Capsule(s) PO TID as needed 02/01/20 19 2018 Inactive True Metrix Glucose Test Strip RxNorm: 1 Test Strips Miscellaneous QA 02/01/20 19 2018 Inactive 100/container Alcohol Prep Pads RxNorm: 894662 1 Patch TOP QA 02/01/20 19 2018 Inactive TRUEplus Lancets 30 gauge RxNorm: 1 Lancets Miscellaneous QA 02/01/20 19 2018 Inactive 100/box lisinopril 2.5 mg tablet RxNorm: 457488 1 Tablet(s) PO daily 12/28/19 19 2018 Inactive ranitidine 150 mg tablet RxNorm: 944387 1 Tablet(s) PO BID 10/21/192018 Inactive This refill negates all other refills of this medication albuterol sulfate 2.5 mg/3 mL (0.083 %) solution for nebulization RxNorm: 834681 1 Vial INH QID 10/21/192018 Inactive 60/box. [...] this medication gabapentin 300 mg capsule RxNorm: 195738 1 Capsule(s) PO TID as needed 10/21/192018 Inactive atorvastatin 20 mg tablet RxNorm: 995024 1 Tablet(s) PO QHS 10/21/192018 Inactive This refill negates all other refills of this medication trazodone 50 mg tablet RxNorm: 473741 1 Tablet(s) PO QHS 10/21/19 19 2018 Inactive This refill negates all other refills of this medication Ventolin HFA 90 mcg/actuation aerosol inhaler RxNorm: 706924 2 Puff(s) INH QID 10/21/192018 Inactive Please do not fill early. Please do not auto refill. This refill negates all other refills of this medication Calcium 600-D3 Plus 600 mg calcium-800 unit-50 mg tablet RxNorm: 1 Tablet(s) PO daily take an additonal tablet for itching. 10/21/19 19 2018 Inactive This refill negates all other refills of this medication Singulair 10 mg tablet RxNorm: 853310 1 Tablet(s) PO daily 10/21/192018 Inactive This refill negates all other refills of this medication buspirone 7.5 mg tablet RxNorm: 398067 1 Tablet(s) PO BID 10/21/192018 Inactive This refill negates all other refills of this medication diclofenac sodium 75 mg tablet,delayed release RxNorm: 561382 1 Tablet(s) PO BID 10/21/192018 Inactive This refill negates all other refills of this medication hydrochlorothiazide 12.5 mg tablet RxNorm: 955538 1 Tablet(s) PO QAM 10/21/19 19 2018 Inactive metoprolol succinate ER 50 mg tablet,extended release 24 hr RxNorm: 565209 1 Tablet(s) PO daily 10/21/192018 Inactive This refill negates all other refills of this medication levothyroxine 50 mcg tablet RxNorm: 268997 1 Tablet(s) PO daily 10/21/192018 Inactive This refill negates all other refills of this medication cetirizine 10 mg tablet RxNorm: 2634036 1 Tablet(s) PO daily 10/21/192018 Inactive This refill negates all other refills of this medication. Please do not auto refill Flintstones Complete (iron) 18 mg iron chewable tablet RxNorm: 1 Tablet(s) PO daily 10/21/192018 Inactive This refill negates all other refills of this medication buspirone 7.5 mg tablet RxNorm: 623854 1 Tablet(s) PO BID 10/12/19 19 2018 Inactive cetirizine 10 mg tablet RxNorm: 2930322 1 Tablet(s) PO daily 12/27/20 18 2018 Inactive Guaiasorb DM 10 mg-100 mg/5 mL oral liquid RxNorm: 327861 10 Milliliter(s) PO As needed every 4 hr 09/24/20 18 2018 Inactive Tatiana Vaporub 4.7 %-1.2 %-2.6 % topical ointment RxNorm: 9093096 1 Application TOP TID 09/24/20 18 2018 Inactive levmetamfetamine 50 mg nasal inhaler RxNorm: 1 Unit(s) NASAL Q3-4H 09/24/20 18 2017 Inactive sertraline 50 mg tablet RxNorm: 270307 1 Tablet(s) PO daily 09/09/20 18 2018 Inactive Please note dose trazodone 50 mg tablet RxNorm: 155348 1 Tablet(s) PO QHS 09/06/20 18 2018 Inactive sertraline 50 mg tablet RxNorm: 213655 1 Tablet(s) PO daily 09/06/20 18 2017 Inactive amoxicillin 500 mg tablet RxNorm: 084415 1 Tablet(s) PO Q12H 08/31/20 18 2017 Inactive albuterol sulfate 2.5 mg/3 mL (0.083 %) solution for nebulization RxNorm: 185305 1 Vial INH QID 08/10/202018 Inactive 60/box. Please do not fill early. Please do not auto refill. Prozac 10 mg capsule RxNorm: 482838 1 Capsule(s) PO daily 08/09/20 18 2017 Inactive buspirone 7.5 mg tablet RxNorm: 832502 1 Tablet(s) PO BID 08/09/20 18 2018 Inactive gabapentin 300 mg capsule RxNorm: 371166 1 Capsule(s) PO TID as needed 08/01/20 18 2018 Inactive hydrochlorothiazide 12.5 mg tablet RxNorm: 786603 1 Tablet(s) PO QAM 08/01/20 18 2018 Inactive ranitidine 150 mg tablet RxNorm: 040164 1 Tablet(s) PO BID 08/01/20 18 2018 Inactive Macrobid 100 mg capsule RxNorm: 685878 1 Capsule(s) PO Q12H 06/21/20 18 2017 Inactive Singulair 10 mg tablet RxNorm: 686369 1 Tablet(s) PO daily 06/14/20 18 2018 Inactive Ventolin HFA 90 mcg/actuation aerosol inhaler RxNorm: 9132582 2 Puff(s) INH QID 06/14/20 18 2018 Inactive Singulair 10 mg tablet RxNorm: 553390 1 Tablet(s) PO daily 06/14/20 18 2017 Inactive buspirone 7.5 mg tablet RxNorm: 926630 1 Tablet(s) PO BID 06/14/20 18 2017 Inactive Prozac 10 mg capsule RxNorm: 903180 1 Capsule(s) PO daily 06/14/20 18 2017 Inactive Neilmed Pediatric Sinus Rinse Refill packet RxNorm: 1 Unit Dose NASAL PRN 05/31/20 18 2021 Inactive diclofenac sodium 75 mg tablet,delayed release RxNorm: 446862 1 Tablet(s) PO BID 05/31/20 18 2017 Inactive lisinopril 2.5 mg tablet RxNorm: 415257 1 Tablet(s) PO daily 05/31/20 18 2017 Inactive metoprolol succinate ER 50 mg tablet,extended release 24 hr RxNorm: 288048 1 Tablet(s) PO daily 05/31/20 18 2017 Inactive levothyroxine 50 mcg tablet RxNorm: 470149 1 Tablet(s) PO daily 05/31/20 18 2017 Inactive TRUEplus Lancets 30 gauge RxNorm: 1 Lancets Miscellaneous QAM 05/31/20 18 2017 Inactive 100/box Ventolin HFA 90 mcg/actuation aerosol inhaler RxNorm: 332877 2 Puff(s) INH QID 05/31/20 18 2017 Inactive Aleve 220 mg capsule RxNorm: 6390780 1 Capsule(s) PO BID 05/31/20 18 2018 Inactive ranitidine 150 mg tablet RxNorm: 266767 1 Tablet(s) PO BID 05/31/20 18 2017 Inactive gabapentin 300 mg capsule RxNorm: 332093 1 Capsule(s) PO TID as needed 05/31/20 18 2017 Inactive atorvastatin 20 mg tablet RxNorm: 372529 1 Tablet(s) PO QHS 05/31/20 18 2017 Inactive True Metrix Glucose Test Strip RxNorm: 1 Test Strips Miscellaneous [facility] 05/31/20 18 2017 Inactive 50/container Calcium 600-D3 Plus 600 mg calcium-800 unit-50 mg tablet RxNorm: 1 Tablet(s) PO daily take an additonal tablet for itching. 05/31/20 18 2017 Inactive hydrochlorothiazide 12.5 mg tablet RxNorm: 399211 1 Tablet(s) PO QAM 05/31/20 18 2017 Inactive Flintstones Complete (iron) 18 mg iron chewable tablet RxNorm: 1 Tablet(s) PO daily 05/31/20 18 2017 Inactive d-mannose oral powder RxNorm: PO 18 2021 Inactive True Metrix Glucose Meter RxNorm: miscellaneous 08/17/20 19 2018 Inactive sertraline 50 mg tablet RxNorm: 434544 1 Tablet(s) PO daily 11/28/19 20 2019 Inactive loperamide 2 mg tablet RxNorm: 198961 oral 09/29/20 19 2018 Inactive Symbicort 160 mcg-4.5 mcg/actuation HFA aerosol inhaler RxNorm: 6788800 2 Puff(s) INH BID 08/17/20 19 2018 Inactive Medication Administered No Medication Administered data Procedures Procedure Codes Date Frailty Screening CPT-4: SFD 05/20/2021 Hypertension CPT-4: HTN 04/01/2021 Tobacco Assessment/Screening CPT-4: TCA 08/2021 Patient Health Questionnaire CPT-4: DPHQ 08/2021 Mini Mental State Exam CPT-4: DMMA 1 Annual Wellness Visit (Subsequent Visit) CPT-4: G0439 01/13/2021 Advanced Care Planning CPT-4: VACP Fall Risk Assessment SNOMED CT: 69363029 4 CPT-4: DFRA 01/13/2021 [place] Assessment CPT-4: DSWA 12/01 Urinalysis, dip stick CPT-4: 58845 09/24/2020 Patient Health Questionnaire CPT-4: DPHQ Electrocardiogram CPT-4: 95936 05/14/2020 Tobacco Assessment/Screening CPT-4: TCA Fall Risk Assessment SNOMED CT: 12328261 4 CPT-4: DFRA 01/01/2020 Functional Assessment CPT-4: DFA 01/01/2020 [place] Assessment CPT-4: DSWA 11/04 Patient Health Questionnaire CPT-4: DPHQ [place] F[place] Assessment CPT-4: DSWA 10/03 Hypertension CPT-4: HTN 10/17/2019 Fall Risk Assessment SNOMED CT: 14116684 4 CPT-4: DFRA 09/19/2019 Functional Assessment CPT-4: DFA 09/19/2019 Urinalysis, dip stick CPT-4: 81954 06/21/2019 Tobacco Assessment/Screening CPT-4: TCA Patient Health Questionnaire CPT-4: DPHQ AHA/REBECCA Classification Assessment CPT-4: DAHA 04/25/2019 Controlled Substance Report CPT-4: CTRSU 04/03 Urinalysis, dip stick CPT-4: 67001 03/28/2019 Urinalysis, dip stick CPT-4: 49880 03/28/2019 J0Y-Awokyitzmdflrtt CPT-4: 02928 Unknown B0F-Kcedhoulzcznhud CPT-4: 12518 Unknown G6Y-Fxbyqqqvlzlwhab CPT-4: 03695 Unknown U2Z-Zklurqydvtfmayu CPT-4: 25054 Unknown E5D-Funnajlhdjvktfu CPT-4: 43994 Unknown V9M-Bdnulvtwnpmrnjb CPT-4: 74634 Unknown D1T-Tnyuypxpidnvgzi CPT-4: 43239 Unknown Gynecology Referral SNOMED CT: 463034992 CPT-4: R14 Unknown Reason For Visit No [...] Referral: [facility] WPtel: [id number] [facility] [address] Digester Capper placed a call out to the patient to notify her that it has been recommended that she be seen by a urologist. Patient agreed to be seen, does not have a provider of choice and no transportation issues. Digester Capper faxed referral and clinical notes to [facility] in [place], [place] near the patient's home. Patient to [...] seen and prefers a provider in the [place] or [place] area. Digester Capper placed a call out to everyone listed in the area and the only location that was able to accept the patient's insurance was [place] [address] [place] [address] and spoke with Maylin. Maylin asked that the patient's referral, face sheet and visit notes be faxed to . Digester Capper faxed over requested documents. Patient appointment confirmation letter generated and mailed to her home address. Patient to call to schedule an appointment. Processed Referral: [facility] WPtel: [facility] [address] [place], [place] [id number] Patient notified that it has been advised that she be seen by Neurology. Patient agreed to be seen and prefers to be seen by a provider in the [place], [place] area. Patient denies any concerns with transportation, and prefers to schedule her own appointment. Digester Capper placed a call out to [facility] and spoke with Neeraj Mcfarland: who confirmed that their office is able to accept new patients and the patient's insurance. After confirming the providers fax number, senior writer faxed over the patient's referral, and [...]
--- OUTSIDE RECORDS SUMMARY | 2023-12-07 02:18 | XMS_ITS | CCD ---
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 Supervisor Files Name Role Phone Palomo KIGN, Anna Primary Care Provider Unav ailable Unavailable Chronic Care Management Unavaila ble Summary Purpose DataExchange Insurance Providers Payer name Policy type / Coverage type Covered libertarian ID Effective Begin Date Effective End Date [employer] [facility] [id number] Unknown Unknown Family history Mother Diagnosis Age [...] Unknown Disability 05/31/[address]: 380221922 Has never s moked or chewed tobacco 05/31/[address]: 425900235 Never drinks alco hol 05/31/2018 Has the patient ever used illegal drugs? 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 anti-inflammatories (NSAID) ICD-10: Z79.1 ICD-9: V58.64 06/13/2018 Active Medications Medication Codes Instructions Start Date Stop Date Status Fill Instructions omeprazole 20 mg capsule,delayed release RxNorm: 383169 Take 1 Capsule(s) Oral every evening 09/22/20 21 2020 Inactive Ozempic 0.25 mg or 0.5 mg (2 mg/1.5 mL) subcutaneous pen injector RxNorm: 9369050 Take 0.25 Milligram(s) Subcutaneous once a week 09/11/20 21 2021 Inactive Easy Touch Alcohol Prep Pads RxNorm: 306544 USE DIRECTED EACH MORNING 09/03/20 21 2021 Inactive Probiotic 10 billion cell capsule RxNorm: 2378657 Take 1 Capsule(s) Oral every day 08/13/20 21 2021 Inactive levothyroxine 50 mcg tablet RxNorm: 938599 Take 1 Tablet(s) Oral every day 08/13/20 21 2020 Inactive Acid Room Inspector (famotidine) 20 mg tablet RxNorm: 468749 Take 1 Tablet(s) Oral every morning 08/13/20 21 2020 Inactive Heartburn Relief (famotidine) 10 mg tablet RxNorm: 858514 Take 1 Tablet(s) Oral QAM 08/07/20 21 2020 Inactive levothyroxine 50 mcg tablet RxNorm: 818938 Take 1 Tablet(s) Oral QD 08/07/20 21 2020 Inactive metformin 1,000 mg tablet RxNorm: 192669 1 Tablet(s) Oral two times a day 07/16/20 21 2021 Inactive Singulair 10 mg tablet RxNorm: 090580 TAKE (1) TABLET BY MOUTH DAILY 07/16/20 21 2020 Inactive lisinopril 2.5 mg tablet RxNorm: 002425 Take 1 Tablet(s) Oral every day 07/11/20 21 2020 Inactive hydrochlorothiazide 25 mg tablet RxNorm: 269844 Take 1 Tablet(s) Oral every day 06/12/20 21 2020 Inactive ondansetron 4 mg disintegrating tablet RxNorm: 151328 1 Tablet(s) Oral two times a day 06/10/20 21 2020 Inactive Sudafed 12 Hour 120 mg tablet,extended release RxNorm: 6219496 TAKE 1 TABLET BY MOUTH EVERY 12 HOURS NEEDED 06/01/20 21 2021 Inactive Heartburn Relief (famotidine) 10 mg tablet RxNorm: 239708 Take 1 Tablet(s) Oral every morning 05/07/20 21 2020 Inactive omeprazole 20 mg capsule,delayed release RxNorm: 308992 1 Capsule(s) Oral every evening 04/03/20 21 2020 Inactive sertraline 100 mg tablet RxNorm: 025806 2 Tablet(s) Oral every day 03/13/20 21 2020 Inactive levothyroxine 50 mcg tablet RxNorm: 070195 TAKE (1) TABLET BY MOUTH DAILY 02/04/202020 Inactive metformin 500 mg tablet RxNorm: 363575 1 Tablet(s) Oral two times a day take with 500mg to equal 1000mg 01/14/20 21 2020 Inactive gabapentin 300 mg capsule RxNorm: 652021 TAKE 1 CAPSULE BY MOUTH THREE TIMES A DAY 01/14/20 21 2020 Inactive lisinopril 2.5 mg tablet RxNorm: 050292 TAKE 1 TABLET BY MOUTH DAILY 01/06/202020 Inactive gabapentin 300 mg capsule RxNorm: 990972 TAKE 1 CAPSULE BY MOUTH THREE TIMES A DAY 01/06/20 21 2020 Inactive Singulair 10 mg tablet RxNorm: 344971 TAKE (1) TABLET BY MOUTH DAILY 01/06/20 21 2020 Inactive metformin 1,000 mg tablet RxNorm: 624898 1 Tablet(s) Oral two times a day 01/06/20 21 2020 Inactive atorvastatin 40 mg tablet RxNorm: 849373 1 Tablet(s) Oral every day 12/06/19 21 2020 Inactive omeprazole 20 mg capsule,delayed release RxNorm: 770273 1 Capsule(s) Oral every evening 11/24/19 21 2020 Inactive famotidine 10 mg tablet RxNorm: 804093 1 Tablet(s) Oral every morning 11/24/19 21 2020 Inactive Alcohol Prep Pads RxNorm: 834493 USE EACH MORNING 10/14/19 21 2020 Inactive omeprazole 20 mg capsule,delayed release RxNorm: 178585 1 Capsule(s) Oral two times a day 10/13/19 21 2021 Inactive omeprazole 20 mg capsule,delayed release RxNorm: 432134 TAKE 1 CAPSULE BY MOUTH EVERY DAY 10/08/19 21 2021 Inactive Macrobid 100 mg capsule RxNorm: 393869 1 Capsule(s) Oral every 12 hours with food 10/01/20 20 2020 Inactive omeprazole 20 mg capsule,delayed release RxNorm: 976841 1 Capsule(s) Oral two times a day 09/24/20 20 2021 Inactive metformin 1,000 mg tablet RxNorm: 003178 1 Tablet(s) Oral two times a day 08/19/20 20 2020 Inactive start on September 11, 2020 metformin 500 mg tablet RxNorm: 828494 1 Tablet(s) Oral two times a day take with 500mg to equal 1000mg 08/19/20 20 2019 Inactive gabapentin 300 mg capsule RxNorm: 040525 TAKE 1 CAPSULE BY MOUTH THREE TIMES DAILY 07/11/20 20 2020 Inactive cetirizine 10 mg tablet RxNorm: 9610920 TAKE (1) TABLET BY MOUTH DAILY 07/11/20 20 2020 Inactive metformin 500 mg tablet RxNorm: 212299 1 Tablet(s) Oral two times a day 07/08/20 20 2019 Inactive loperamide 2 mg tablet RxNorm: 821605 1 Tablet(s) Oral as needed take one tablet after each loose stool, maximum of 8 tablets in 24 hours 06/24/20 20 2021 Inactive Sudafed 12 Hour 120 mg tablet,extended release RxNorm: 9191227 TAKE 1 TABLET BY MOUTH EVERY 12 HOURS NEEDED 06/11/20 20 2019 Inactive hydrochlorothiazide 25 mg tablet RxNorm: 511430 TAKE (1) TABLET BY MOUTH EVERY DAY 06/11/20 20 2019 Inactive omeprazole 20 mg capsule,delayed release RxNorm: 594320 TAKE 1 CAPSULE BY MOUTH EVERY DAY 05/14/20 20 2020 Inactive metformin 500 mg tablet RxNorm: 011378 1 Tablet(s) Oral every day 05/12/20 20 2019 Inactive True Metrix Glucose Test Strip RxNorm: 1 Test Strips Miscellaneous two times a day as needed 04/17/20 No Stop Date Active metformin 500 mg tablet RxNorm: 738132 1 Tablet(s) Oral every day 04/17/20 20 2019 Inactive diclofenac sodium 75 mg tablet,delayed release RxNorm: 074969 1 Tablet(s) PO BID 04/14/20 20 2021 Inactive This refill negates all other refills of this medication Sudafed 12 Hour 120 mg tablet,extended release RxNorm: 4147753 TAKE 1 TABLET BY MOUTH EVERY 12 HOURS NEEDED 03/14/20 20 2019 Inactive True Metrix Glucose Test Strip RxNorm: 1 Test Strips Miscellaneous every morning 03/13/20 20 2019 Inactive 100/container True Metrix Glucose Test Strip RxNorm: 1 Test Strips Miscellaneous QAM 02/22/20 20 2019 Inactive 100/container loperamide 2 mg tablet RxNorm: 225209 1 Tablet(s) Oral as needed take one tablet after each loose stool, maximum of 8 tablets in 24 hours 02/22/20 20 2019 Inactive cetirizine 10 mg tablet RxNorm: 1029578 1 Tablet(s) PO daily 01/17/20 20 2019 Inactive loperamide 2 mg tablet RxNorm: 982145 1 Tablet(s) Oral as needed take one tablet after each loose stool, maximum of 8 tablets in 24 hours 01/17/20 20 2019 Inactive quetiapine 100 mg tablet RxNorm: 800767 1 Tablet(s) Oral every night at bedtime 01/17/20 20 2019 Inactive levothyroxine 50 mcg tablet RxNorm: 879689 1 Tablet(s) PO daily 01/17/20 20 2020 Inactive gabapentin 300 mg capsule RxNorm: 229404 1 Capsule(s) PO TID 01/17/20 20 2019 Inactive levothyroxine 50 mcg tablet RxNorm: 110279 1 Tablet(s) PO daily 01/15/20 20 2019 Inactive lisinopril 2.5 mg tablet RxNorm: 306757 1 Tablet(s) PO daily 01/15/20 20 2020 Inactive gabapentin 300 mg capsule RxNorm: 312617 1 Capsule(s) PO TID 01/15/20 20 2019 Inactive cetirizine 10 mg tablet RxNorm: 8182482 1 Tablet(s) PO daily 01/15/20 20 2019 Inactive Singulair 10 mg tablet RxNorm: 441604 1 Tablet(s) PO daily 01/15/20 20 2020 Inactive gentamicin 0.3 % eye drops RxNorm: 096452 1 Drop(s) ophthalmic (eye) four times a day 12/29/19 20 2019 Inactive gentamicin 0.3 % eye drops RxNorm: 988176 1 Drop(s) ophthalmic (eye) four times a day 12/29/19 20 2019 Inactive gentamicin 0.3 % eye drops RxNorm: 672723 1 Drop(s) ophthalmic (eye) four times a day 12/29/19 20 2019 Inactive hydrochlorothiazide 25 mg tablet RxNorm: 200803 1 Tablet(s) Oral every day 12/21/19 20 2019 Inactive Sudafed 12 Hour 120 mg tablet,extended release RxNorm: 3044167 TAKE (1) TABLET BY MOUTH EVERY 12 HOURS NEEDED 12/21/19 20 2019 Inactive loperamide 2 mg tablet RxNorm: 062215 1 Tablet(s) Oral as needed take one tablet after each loose stool, maximum of 8 tablets in 24 hours 12/11/19 20 2019 Inactive loperamide 2 mg tablet RxNorm: 206660 1 Tablet(s) Oral as needed take one tablet after each loose stool, maximum of 8 tablets in 24 hours 12/11/19 20 2019 Inactive atorvastatin 40 mg tablet RxNorm: 408547 1 Tablet(s) Oral every day 11/29/19 20 2020 Inactive quetiapine 100 mg tablet RxNorm: 353305 1 Tablet(s) Oral every night at bedtime 11/28/19 20 2019 Inactive sertraline 100 mg tablet RxNorm: 364628 1 Tablet(s) Oral 11/28/19 20 2019 Inactive omeprazole 20 mg capsule,delayed release RxNorm: 549642 1 Capsule(s) Oral every day 11/20/19 20 2019 Inactive amoxicillin 250 mg capsule RxNorm: 233617 1 Capsule(s) Oral three times a day 11/07/19 20 2019 Inactive multivitamin with iron-mineral tablet RxNorm: 1 Tablet(s) Oral every day 10/29/19 20 2021 Inactive cetirizine 10 mg tablet RxNorm: 4189298 1 Tablet(s) PO daily 10/20/19 20 2019 Inactive This refill negates all other refills of this medication. Please do not auto refill Singulair 10 mg tablet RxNorm: 467853 1 Tablet(s) PO daily 10/20/19 20 2019 Inactive This refill negates all other refills of this medication gabapentin 300 mg capsule RxNorm: 542654 1 Capsule(s) PO TID 10/20/19 20 2019 Inactive lisinopril 2.5 mg tablet RxNorm: 432015 1 Tablet(s) PO daily 10/20/19 20 2019 Inactive levothyroxine 50 mcg tablet RxNorm: 123183 1 Tablet(s) PO daily 10/20/19 20 2019 Inactive This refill negates all other refills of this medication fenugreek seed extract 500 mg capsule RxNorm: 1 Capsule(s) Oral three times a day 10/17/19 20 2021 Inactive hydrochlorothiazide 25 mg tablet RxNorm: 918128 1 Tablet(s) Oral every day 10/17/19 20 2019 Inactive Alcohol Prep Pads RxNorm: 370342 1 Patch TOP QAM 10/16/19 20 2020 Inactive loperamide 2 mg tablet RxNorm: 776816 1 Tablet(s) Oral as needed take one [...] 2019 Inactive hydrochlorothiazide 25 mg tablet RxNorm: 558618 1 Tablet(s) Oral every day 09/19/202019 Inactive Sudafed 12 Hour 120 mg tablet,extended release RxNorm: 7872505 1 Tablet(s) Oral every 12 hours as needed 09/11/20 19 2018 Inactive omeprazole 20 mg capsule,delayed release RxNorm: 638369 1 Capsule(s) Oral every day 09/07/20 19 2019 Inactive Sudafed 12 Hour 120 mg tablet,extended release RxNorm: 3990979 1 Tablet(s) Oral every 12 hours as needed 09/04/20 19 2018 Inactive pantoprazole 40 mg tablet,delayed release RxNorm: 793302 1 Tablet(s) Oral every day 08/24/20 19 2018 Inactive discontinue any other H2Blkr. and PPI albuterol sulfate 2.5 mg/3 mL (0.083 %) solution for nebulization RxNorm: 765416 1 Vial Inhalation every four hours as needed as needed for dyspnea 08/17/202019 Inactive 60/box. This refill negates all other refills of this medication. Please do not fill early. Please do not auto refill. Symbicort 160 mcg-4.5 mcg/actuation HFA aerosol inhaler RxNorm: 8585372 2 Puff(s) INH BID 08/17/20 No Stop Date Active Alcohol Prep Pads RxNorm: 642230 1 Patch TOP QAM 08/17/20 19 2019 Inactive Ventolin HFA 90 mcg/actuation aerosol inhaler RxNorm: 340011 2 Puff(s) INH QID 08/09/20 19 2019 Inactive Please do not fill early. Please do not auto refill. This refill negates all other refills of this medication True Metrix Glucose Test Strip RxNorm: 1 Test Strips Miscellaneous QAM 08/09/20 19 2019 Inactive 100/container atorvastatin 40 mg tablet RxNorm: 716519 1 Tablet(s) Oral every day 07/04/20 19 2019 Inactive levmetamfetamine 50 mg nasal inhaler RxNorm: 1 Unit(s) NASAL Q3-4H Do not use more than every 3 hours or 8 times/24hours 06/26/20 19 2021 Inactive Please do not auto refill. This refill negates all other refills of this medication buspirone 7.5 mg tablet RxNorm: 436904 1 Tablet(s) PO BID 06/26/20 19 2020 Inactive This refill negates all other refills of this medication hydrochlorothiazide 12.5 mg tablet RxNorm: 842572 1 Tablet(s) PO QAM 06/26/20 19 2019 Inactive Ventolin HFA 90 mcg/actuation aerosol inhaler RxNorm: 921338 2 Puff(s) INH QID 06/26/20 19 2018 Inactive Please do not fill early. Please do not auto refill. This refill negates all other refills of this medication Singulair 10 mg tablet RxNorm: 930847 1 Tablet(s) PO daily 06/26/20 19 2019 Inactive This refill negates all other refills of this medication cetirizine 10 mg tablet RxNorm: 7420133 1 Tablet(s) PO daily 06/26/20 19 2019 Inactive This refill negates all other refills of this medication. Please do not auto refill levothyroxine 50 mcg tablet RxNorm: 451346 1 Tablet(s) PO daily 06/26/20 19 2019 Inactive This refill negates all other refills of this medication diclofenac sodium 75 mg tablet,delayed release RxNorm: 971682 1 Tablet(s) PO BID 06/26/20 19 2019 Inactive This refill negates all other refills of this medication ranitidine 150 mg tablet RxNorm: 151186 1 Tablet(s) PO BID 06/26/20 19 2018 Inactive This refill negates all other refills of this medication Calcium 600-D3 Plus (mag-zinc) 600 mg calcium-800 unit-50 mg tablet RxNorm: 1 Tablet(s) PO daily take an additonal tablet for itching. 06/26/20 19 2018 Inactive This refill negates all other refills of this medication albuterol sulfate 2.5 mg/3 mL (0.083 %) solution for nebulization RxNorm: 044314 1 Vial INH QID 06/26/20 19 2018 Inactive 60/box. This refill negates all other refills of this medication. Please do not fill early. Please do not auto refill. lisinopril 2.5 mg tablet RxNorm: 699045 1 Tablet(s) PO daily 06/21/20 19 2019 Inactive gabapentin 300 mg capsule RxNorm: 627904 1 Capsule(s) PO TID 06/21/20 19 2019 Inactive atorvastatin 20 mg tablet RxNorm: 630161 1 Tablet(s) PO QHS 06/07/202018 Inactive This refill negates all other refills of this medication TRUEplus Lancets 30 gauge RxNorm: 1 Lancets Miscellaneous QAM 05/29/20 19 2018 Inactive 100/box gabapentin 300 mg capsule RxNorm: 253412 1 Capsule(s) PO TID 05/03/20 19 2018 Inactive Flintstones Complete (iron) 18 mg iron chewable tablet RxNorm: 1 Tablet(s) PO daily 04/04/202021 Inactive This refill negates all other refills of this medication gabapentin 300 mg capsule RxNorm: 385727 1 Capsule(s) PO TID as needed 02/01/20 19 2018 Inactive True Metrix Glucose Test Strip RxNorm: 1 Test Strips Miscellaneous QAM 02/01/20 19 2018 Inactive 100/container Alcohol Prep Pads RxNorm: 968000 1 Patch TOP QAM 02/01/20 19 2018 Inactive TRUEplus Lancets 30 gauge RxNorm: 1 Lancets Miscellaneous QAM 02/01/20 19 2018 Inactive 100/box lisinopril 2.5 mg tablet RxNorm: 444829 1 Tablet(s) PO daily 12/28/19 19 2018 Inactive ranitidine 150 mg tablet RxNorm: 363729 1 Tablet(s) PO BID 10/21/19 19 2018 Inactive This refill negates all other refills of this medication albuterol sulfate 2.5 mg/3 mL (0.083 %) solution for nebulization RxNorm: 467679 1 Vial INH QID 10/21/19 19 2018 [...] this medication gabapentin 300 mg capsule RxNorm: 994642 1 Capsule(s) PO TID as needed 10/21/19 19 2018 Inactive atorvastatin 20 mg tablet RxNorm: 226280 1 Tablet(s) PO QHS 10/21/19 19 2018 Inactive This refill negates all other refills of this medication trazodone 50 mg tablet RxNorm: 166339 1 Tablet(s) PO QHS 10/21/19 19 2018 Inactive This refill negates all other refills of this medication Ventolin HFA 90 mcg/actuation aerosol inhaler RxNorm: 238062 2 Puff(s) INH QID 10/21/19 19 2018 [...] this medication Singulair 10 mg tablet RxNorm: 712112 1 Tablet(s) PO daily 10/21/19 19 2018 Inactive This refill negates all other refills of this medication buspirone 7.5 mg tablet RxNorm: 642622 1 Tablet(s) PO BID 10/21/19 19 2018 Inactive This refill negates all other refills of this medication diclofenac sodium 75 mg tablet,delayed release RxNorm: 145951 1 Tablet(s) PO BID 10/21/19 19 2018 Inactive This refill negates all other refills of this medication hydrochlorothiazide 12.5 mg tablet RxNorm: 295879 1 Tablet(s) PO QAM 10/21/19 19 2018 Inactive metoprolol succinate ER 50 mg tablet,extended release 24 hr RxNorm: 071884 1 Tablet(s) PO daily 10/21/19 19 2018 Inactive This refill negates all other refills of this medication levothyroxine 50 mcg tablet RxNorm: 724945 1 Tablet(s) PO daily 10/21/19 19 2018 Inactive This refill negates all other refills of this medication cetirizine 10 mg tablet RxNorm: 2156680 1 Tablet(s) PO daily 10/21/192018 Inactive This refill negates all other refills of this medication. Please do not auto refill Flintstones Complete (iron) 18 mg iron chewable tablet RxNorm: 1 Tablet(s) PO daily 10/21/192018 Inactive This refill negates all other refills of this medication buspirone 7.5 mg tablet RxNorm: 373905 1 Tablet(s) PO BID 10/12/19 19 2018 Inactive cetirizine 10 mg tablet RxNorm: 4778923 1 Tablet(s) PO daily 09/28/202018 Inactive Guaiasorb DM 10 mg-100 mg/5 mL oral liquid RxNorm: 744194 10 Milliliter(s) PO As needed every 4 hr 09/24/20 18 2018 Inactive Vicks Vaporub 4.7 %-1.2 %-2.6 % topical ointment RxNorm: 6022665 1 Application TOP TID 09/24/20 18 2018 Inactive levmetamfetamine 50 mg nasal inhaler RxNorm: 1 Unit(s) NASAL Q3-4H 09/24/20 18 2017 Inactive sertraline 50 mg tablet RxNorm: 888424 1 Tablet(s) PO daily 09/09/20 18 2018 Inactive Please note dose trazodone 50 mg tablet RxNorm: 529340 1 Tablet(s) PO QHS 09/06/20 18 2018 Inactive sertraline 50 mg tablet RxNorm: 298656 1 Tablet(s) PO daily 09/06/20 18 2017 Inactive amoxicillin 500 mg tablet RxNorm: 373231 1 Tablet(s) PO Q12H 08/31/20 18 2017 Inactive albuterol sulfate 2.5 mg/3 mL (0.083 %) solution for nebulization RxNorm: 340719 1 Vial INH QID 08/10/20 18 2018 Inactive 60/box. Please do not fill early. Please do not auto refill. Prozac 10 mg capsule RxNorm: 349099 1 Capsule(s) PO daily 08/09/20 18 2017 Inactive buspirone 7.5 mg tablet RxNorm: 308536 1 Tablet(s) PO BID 08/09/20 18 2018 Inactive gabapentin 300 mg capsule RxNorm: 122922 1 Capsule(s) PO TID as needed 08/01/20 18 2018 Inactive hydrochlorothiazide 12.5 mg tablet RxNorm: 616539 1 Tablet(s) PO QAM 08/01/20 18 2018 Inactive ranitidine 150 mg tablet RxNorm: 673326 1 Tablet(s) PO BID 08/01/20 18 2018 Inactive Macrobid 100 mg capsule RxNorm: 963744 1 Capsule(s) PO Q12H 06/21/20 18 2017 Inactive Singulair 10 mg tablet RxNorm: 120364 1 Tablet(s) PO daily 06/14/20 18 2018 Inactive Ventolin HFA 90 mcg/actuation aerosol inhaler RxNorm: 2767831 2 Puff(s) INH QID 06/14/20 18 2018 Inactive Singulair 10 mg tablet RxNorm: 201618 1 Tablet(s) PO daily 06/14/20 18 2017 Inactive buspirone 7.5 mg tablet RxNorm: 469681 1 Tablet(s) PO BID 06/14/20 18 2017 Inactive Prozac 10 mg capsule RxNorm: 412877 1 Capsule(s) PO daily 06/14/20 18 2017 Inactive Neilmed Pediatric Sinus Rinse Refill packet RxNorm: 1 Unit Dose NASAL PRN 05/31/20 18 2021 Inactive diclofenac sodium 75 mg tablet,delayed release RxNorm: 981478 1 Tablet(s) PO BID 05/31/20 18 2017 Inactive lisinopril 2.5 mg tablet RxNorm: 419680 1 Tablet(s) PO daily 05/31/20 18 2017 Inactive metoprolol succinate ER 50 mg tablet,extended release 24 hr RxNorm: 484923 1 Tablet(s) PO daily 05/31/20 18 2017 Inactive levothyroxine 50 mcg tablet RxNorm: 076107 1 Tablet(s) PO daily 05/31/20 18 2017 Inactive TRUEplus Lancets 30 gauge RxNorm: 1 Lancets Miscellaneous QAM 05/31/20 18 2017 Inactive 100/box Ventolin HFA 90 mcg/actuation aerosol inhaler RxNorm: 197909 2 Puff(s) INH QID 05/31/20 18 2017 Inactive Aleve 220 mg capsule RxNorm: 5360598 1 Capsule(s) PO BID 05/31/20 18 2018 Inactive ranitidine 150 mg tablet RxNorm: 364763 1 Tablet(s) PO BID 05/31/20 18 2017 Inactive gabapentin 300 mg capsule RxNorm: 442772 1 Capsule(s) PO TID as needed 05/31/20 18 2017 Inactive atorvastatin 20 mg tablet RxNorm: 201336 1 Tablet(s) PO QHS 05/31/20 18 2017 Inactive True Metrix Glucose Test Strip RxNorm: 1 Test Strips Miscellaneous QA 05/31/20 18 2017 Inactive 50/container Calcium 600-D3 Plus 600 mg calcium-800 unit-50 mg tablet RxNorm: 1 Tablet(s) PO daily take an additonal tablet for itching. 05/31/20 18 2017 Inactive hydrochlorothiazide 12.5 mg tablet RxNorm: 023614 1 Tablet(s) PO QAM 05/31/20 18 2017 Inactive Flintstones Complete (iron) 18 mg iron chewable tablet RxNorm: 1 Tablet(s) PO daily 05/31/20 18 2017 Inactive d-mannose oral powder RxNorm: PO 18 2021 Inactive True Metrix Glucose Meter RxNorm: miscellaneous 08/17/20 19 2018 Inactive sertraline 50 mg tablet RxNorm: 735152 1 Tablet(s) PO daily 11/28/19 20 2019 Inactive loperamide 2 mg tablet RxNorm: 508455 oral 09/29/20 19 2018 Inactive Symbicort 160 mcg-4.5 mcg/actuation HFA aerosol inhaler RxNorm: 4391190 2 Puff(s) INH BID 08/17/20 19 2018 Inactive Medication Administered No Medication Administered data Procedures Procedure Codes Date Frailty Screening CPT-4: SFD 05/20/2021 Hypertension CPT-4: HTN 04/01/2021 Tobacco Assessment/Screening CPT-4: TCA 08/2021 Patient Health Questionnaire CPT-4: DPHQ 08/2021 Mini Mental State Exam CPT-4: DMMA Annual Wellness Visit (Subsequent Visit) CPT-4: G0439 01/13/2021 Advanced Care Planning CPT-4: VACP Fall Risk Assessment SNOMED CT: 26853820 4 CPT-4: DFRA 01/13/2021 [place] Fany Assessment CPT-4: DSWA 12/01 Urinalysis, dip stick CPT-4: 45209 09/24/2020 Patient Health Questionnaire CPT-4: DPHQ Electrocardiogram CPT-4: 67318 05/14/2020 Tobacco Assessment/Screening CPT-4: TCA Fall Risk Assessment SNOMED CT: 64558346 4 CPT-4: DFRA 01/01/2020 Functional Assessment CPT-4: DFA 01/01/2020 [place] Fany Assessment CPT-4: DSWA 11/04 Patient Health Questionnaire CPT-4: DPHQ [place] Fany Assessment CPT-4: DSWA 10/03 Hypertension CPT-4: HTN 10/17/2019 Fall Risk Assessment SNOMED CT: 58214738 4 CPT-4: DFRA 09/19/2019 Functional Assessment CPT-4: DFA 09/19/2019 Urinalysis, dip stick CPT-4: 34811 06/21/2019 Tobacco Assessment/Screening CPT-4: TCA Patient Health Questionnaire CPT-4: DPHQ AHA/REBECCA Classification Assessment CPT-4: DAHA 04/25/2019 Controlled Substance Report CPT-4: CTRSU 04/03 Urinalysis, dip stick CPT-4: 86510 03/28/2019 Urinalysis, dip stick CPT-4: 12707 03/28/2019 [id number]-Iwuyfqmnauawlmu CPT-4: 42109 Unknown R6W-Jjjuicwsjwhbmzj CPT-4: 65454 Unknown C1E-Sauwpcdpfjnmqic CPT-4: 79936 Unknown R4F-Evcbtiwdifbqffq CPT-4: 02476 Unknown S8N-Wzeyoiisirfmjjn CPT-4: 80537 Unknown Y7M-Rqgjwytovggepba CPT-4: 26457 Unknown F5H-Lufjjlftagivlul CPT-4: 56246 Unknown Gynecology Referral SNOMED CT: 131475856 CPT-4: R14 Unknown Reason For Visit No Reason For Visit data Plan of Care Planned Activity Notes Codes Status Date Referral: Pending Gynecology Referral Information Referral Processed Referral: Pending Pulmonolog y Referral Information Referral Processed Referral: Pending Psychiatry Referral Information Referral Initiated Referral: Pending Respirator y Services Referral Information Referral Initiated Referral: Pending Ophthalmol ogy Referral Information Referral Initiated Referral: [facility] WPtel: [address] [place] [address] [id number] Software Implementation Specialist placed a call out to the patient to notify her that it has been recommended that she be seen by a urologist. Patient agreed to be seen, does not have a provider of choice and no transportation issues. Software Implementation Specialist faxed referral and clinical notes to [facility] in [place], [place] near the patient's home. Patient to [...] seen and prefers a provider in the [place] or [place] area. Software Implementation Specialist placed a call out to everyone listed in the area and the only location that was able to accept the patient's insurance was [address] [id number] and spoke with Maylin. Maylin asked that the patient's referral, face sheet and visit notes be faxed to . Software Implementation Specialist faxed over requested documents. Patient appointment confirmation letter generated and mailed to her home address. Patient to call to schedule an appointment. Processed Referral: [facility] WPtel: [id number] Patient notified that it has been advised that she be seen by Neurology. Patient agreed to be seen and prefers to be seen by a provider in the [place], [place] area. Patient denies any concerns with transportation, and prefers to schedule her own appointment. Software Implementation Specialist placed a call out to [facility] [...]
--- OUTSIDE RECORDS SUMMARY | 2023-12-07 02:19 | XMS_ITS | CCD ---
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 Information Security Architect Name Role Phone Palomo KING, Anna Primary Care Provider Unav ailable Unavailable Chronic Care Management Unavaila ble Summary Purpose DataExchange Insurance Providers Payer name Policy type / Coverage type Covered libertarian ID Effective Begin Date Effective End Date SUKI MAYO [id number] Unknown Unknown Family history Mother Diagnosis Age [...] Unknown Disability 05/31/[address]: 717592507 Has never s moked or chewed tobacco 05/31/[address]: 101721710 Never drinks alco hol 05/31/2018 Has the patient ever used illegal drugs? Unknown Has never used illegal drugs 05/31/2018 DNR Order/ Advanced Directive Unknown Full Code 05/31/2018 Allergies, Adverse Reactions, Alerts Substance Reaction Codes Entered Date Inactivated Date Status OxyContin itch, RxNorm: 448680 01/13/2021 No Inactive Da te Active *No [...] E78. 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 non-steroidal anti-inflammatories [...] 10/03/2018 Inactive Other senior care (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 ICD-10: Z79.899 ICD-9: V58.69 04/25/2019 Inactive Type 2 diabetes mellitus wit hout complications ICD-10: E11.9 ICD-9: 250.00 10/03/2018 Inactive Wheezing ICD-10: R06.2 ICD-9: 786.07 08/08/2018 Inactive Abnormal urine finding ICD-10: R82.90 ICD-9: 791.9 09/24/2020 Resolved Abrasion of toe ICD-10: S90.416A ICD-9: 917.0 02/14/2020 Resolved [place] eye ICD-10: H10.029 ICD-9: 372.03 12/29/2019 Resolved [...] Instructions omeprazole 20 mg capsule,delayed release RxNorm: 307751 Take 1 Capsule(s) Oral every evening 022 2021 Inactive levothyroxine 50 mcg tablet RxNorm: 883934 Take 1 Tablet(s) Oral every day 022 2021 Inactive atorvastatin 20 mg tablet RxNorm: 525016 Take 1 Tablet(s) Oral every night at bedtime 2021 Inactive This refill negates all other refills of this medication lisinopril 2.5 mg tablet RxNorm: 075255 Take 1 Tablet(s) Oral every day 022 2021 Inactive gabapentin 300 mg capsule RxNorm: 163013 Take 1 Capsule(s) Oral three times a day 022 2021 Inactive montelukast 10 mg tablet RxNorm: 083181 Take 1 Tablet(s) Oral every day 022 2021 Inactive cholecalciferol (vitamin D3) 50 mcg (2,000 unit) tablet RxNorm: 506056 Take 1 Tablet(s) Oral every day 022 2022 Inactive Myrbetriq 50 mg tablet,extended release RxNorm: 3565802 1 Tablet(s) Oral every day No Stop Date Active Ozempic 0.25 mg or 0.5 mg (2 mg/1.5 mL) subcutaneous pen injector RxNorm: 7905903 inject 0.5 milligrams subcutaneously every week 022 2021 Inactive Ozempic 0.25 mg or 0.5 mg (2 mg/1.5 mL) subcutaneous pen injector RxNorm: 8705699 Take 0.5 Capsule(s) Injection once a week 022 2021 Inactive omeprazole 20 mg capsule,delayed release RxNorm: 621211 Take 1 Capsule(s) Oral every evening 2020 Inactive Ozempic 0.25 mg or 0.5 mg (2 mg/1.5 mL) subcutaneous pen injector RxNorm: 8652375 Take 0.25 Milligram(s) Subcutaneous once a week 2021 Inactive Easy Touch Alcohol Prep Pads RxNorm: 434279 USE DIRECTED EACH MORNING 2021 Inactive Probiotic 10 billion cell capsule RxNorm: 5093516 Take 1 Capsule(s) Oral every day 2021 Inactive levothyroxine 50 mcg tablet RxNorm: 532727 Take 1 Tablet(s) Oral every day 2020 Inactive Acid Bulldozer Engineer (famotidine) 20 mg tablet RxNorm: 153659 Take 1 Tablet(s) Oral every morning 2020 Inactive Heartburn Relief (famotidine) 10 mg tablet RxNorm: 828961 Take 1 Tablet(s) Oral QAM 2020 Inactive levothyroxine 50 mcg tablet RxNorm: 678172 Take 1 Tablet(s) Oral QD 2020 Inactive Singulair 10 mg tablet RxNorm: 597421 TAKE (1) TABLET BY MOUTH DAILY 2020 Inactive metformin 1,000 mg tablet RxNorm: 623450 1 Tablet(s) Oral two times a day 2021 Inactive lisinopril 2.5 mg tablet RxNorm: 122723 Take 1 Tablet(s) Oral every day 2020 Inactive hydrochlorothiazide 25 mg tablet RxNorm: 706389 Take 1 Tablet(s) Oral every day 021 2020 Inactive ondansetron 4 mg disintegrating tablet RxNorm: 143092 1 Tablet(s) Oral two times a day 021 2020 Inactive Sudafed 12 Hour 120 mg tablet,extended release RxNorm: 7045700 TAKE 1 TABLET BY MOUTH EVERY 12 HOURS NEEDED 2021 Inactive Heartburn Relief (famotidine) 10 mg tablet RxNorm: 473166 Take 1 Tablet(s) Oral every morning 021 2020 Inactive omeprazole 20 mg capsule,delayed release RxNorm: 293167 1 Capsule(s) Oral every evening 021 2020 Inactive sertraline 100 mg tablet RxNorm: 811571 2 Tablet(s) Oral every day 2020 Inactive levothyroxine 50 mcg tablet RxNorm: 259565 TAKE (1) TABLET BY MOUTH DAILY 2020 Inactive metformin 500 mg tablet RxNorm: 764192 1 Tablet(s) Oral two times a day take with 500mg to equal 1000mg 2020 Inactive gabapentin 300 mg capsule RxNorm: 782560 TAKE 1 CAPSULE BY MOUTH THREE TIMES A DAY 021 2020 Inactive lisinopril 2.5 mg tablet RxNorm: 598028 TAKE 1 TABLET BY MOUTH DAILY 021 2020 Inactive gabapentin 300 mg capsule RxNorm: 111475 TAKE 1 CAPSULE BY MOUTH THREE TIMES A DAY 021 2020 Inactive Singulair 10 mg tablet RxNorm: 284078 TAKE (1) TABLET BY MOUTH DAILY 021 2020 Inactive metformin 1,000 mg tablet RxNorm: 267907 1 Tablet(s) Oral two times a day 021 2020 Inactive atorvastatin 40 mg tablet RxNorm: 494762 1 Tablet(s) Oral every day 032020 Inactive omeprazole 20 mg capsule,delayed release RxNorm: 108767 1 Capsule(s) Oral every evening 2020 Inactive famotidine 10 mg tablet RxNorm: 045208 1 Tablet(s) Oral every morning 021 2020 Inactive Alcohol Prep Pads RxNorm: 349431 USE EACH MORNING 2020 Inactive omeprazole 20 mg capsule,delayed release RxNorm: 316296 1 Capsule(s) Oral two times a day 2021 Inactive omeprazole 20 mg capsule,delayed release RxNorm: 585962 TAKE 1 CAPSULE BY MOUTH EVERY DAY 2021 Inactive Macrobid 100 mg capsule RxNorm: 405327 1 Capsule(s) Oral every 12 hours with food 2020 Inactive omeprazole 20 mg capsule,delayed release RxNorm: 423169 1 Capsule(s) Oral two times a day 2021 Inactive metformin 1,000 mg tablet RxNorm: 620039 1 Tablet(s) Oral two times a day 2020 Inactive start on September 11, 2020 metformin 500 mg tablet RxNorm: 632650 1 Tablet(s) Oral two times a day take with 500mg to equal 1000mg 2019 Inactive gabapentin 300 mg capsule RxNorm: 836209 TAKE 1 CAPSULE BY MOUTH THREE TIMES DAILY 2020 Inactive cetirizine 10 mg tablet RxNorm: 0465412 TAKE (1) TABLET BY MOUTH DAILY 2020 Inactive metformin 500 mg tablet RxNorm: 961667 1 Tablet(s) Oral two times a day 2019 Inactive loperamide 2 mg tablet RxNorm: 192829 1 Tablet(s) Oral as needed take one tablet after each loose stool, maximum of 8 tablets in 24 hours 2021 Inactive Sudafed 12 Hour 120 mg tablet,extended release RxNorm: 7796761 TAKE 1 TABLET BY MOUTH EVERY 12 HOURS NEEDED 020 2019 Inactive hydrochlorothiazide 25 mg tablet RxNorm: 742889 TAKE (1) TABLET BY MOUTH EVERY DAY 020 2019 Inactive omeprazole 20 mg capsule,delayed release RxNorm: 062451 TAKE 1 CAPSULE BY MOUTH EVERY DAY 020 2020 Inactive metformin 500 mg tablet RxNorm: 962014 1 Tablet(s) Oral every day 020 2019 Inactive True Metrix Glucose Test Strip RxNorm: 1 Test Strips Miscellaneous two times a day as needed No Stop Date Active metformin 500 mg tablet RxNorm: 218413 1 Tablet(s) Oral every day 020 2019 Inactive diclofenac sodium 75 mg tablet,delayed release RxNorm: 861544 1 Tablet(s) PO BID 2021 Inactive This refill negates all other refills of this medication Sudafed 12 Hour 120 mg tablet,extended release RxNorm: 1528332 TAKE 1 TABLET BY MOUTH EVERY 12 HOURS NEEDED 020 2019 Inactive True Metrix Glucose Test Strip RxNorm: 1 Test Strips Miscellaneous every morning 020 2019 Inactive 100/container True Metrix Glucose Test Strip RxNorm: 1 Test Strips Miscellaneous QA 020 2019 Inactive 100/container loperamide 2 mg tablet RxNorm: 873582 1 Tablet(s) Oral as needed take one tablet after each loose stool, maximum of 8 tablets in 24 hours 020 2019 Inactive cetirizine 10 mg tablet RxNorm: 8484576 1 Tablet(s) PO daily 020 2019 Inactive loperamide 2 mg tablet RxNorm: 012324 1 Tablet(s) Oral as needed take one tablet after each loose stool, maximum of 8 tablets in 24 hours 020 2019 Inactive quetiapine 100 mg tablet RxNorm: 308747 1 Tablet(s) Oral every night at bedtime 020 2019 Inactive levothyroxine 50 mcg tablet RxNorm: 078831 1 Tablet(s) PO daily 020 2020 Inactive gabapentin 300 mg capsule RxNorm: 772872 1 Capsule(s) PO TID 020 2019 Inactive levothyroxine 50 mcg tablet RxNorm: 772122 1 Tablet(s) PO daily 2019 Inactive lisinopril 2.5 mg tablet RxNorm: 744250 1 Tablet(s) PO daily 2020 Inactive gabapentin 300 mg capsule RxNorm: 200495 1 Capsule(s) PO TID 2019 Inactive cetirizine 10 mg tablet RxNorm: 0784930 1 Tablet(s) PO daily 2019 Inactive Singulair 10 mg tablet RxNorm: 517619 1 Tablet(s) PO daily 2020 Inactive gentamicin 0.3 % eye drops RxNorm: 177307 1 Drop(s) ophthalmic (eye) four times a day 2019 Inactive gentamicin 0.3 % eye drops RxNorm: 134708 1 Drop(s) ophthalmic (eye) four times a day 020 2019 Inactive gentamicin 0.3 % eye drops RxNorm: 673460 1 Drop(s) ophthalmic (eye) four times a day 2019 Inactive hydrochlorothiazide 25 mg tablet RxNorm: 242730 1 Tablet(s) Oral every day 2019 Inactive Sudafed 12 Hour 120 mg tablet,extended release RxNorm: 8580140 TAKE (1) TABLET BY MOUTH EVERY 12 HOURS NEEDED 2019 Inactive loperamide 2 mg tablet RxNorm: 132915 1 Tablet(s) Oral as needed take one tablet after each loose stool, maximum of 8 tablets in 24 hours 2019 Inactive loperamide 2 mg tablet RxNorm: 471371 1 Tablet(s) Oral as needed take one tablet after each loose stool, maximum of 8 tablets in 24 hours 2019 Inactive atorvastatin 40 mg tablet RxNorm: 136183 1 Tablet(s) Oral every day 2020 Inactive quetiapine 100 mg tablet RxNorm: 799661 1 Tablet(s) Oral every night at bedtime 2019 Inactive sertraline 100 mg tablet RxNorm: 831672 1 Tablet(s) Oral 2019 Inactive omeprazole 20 mg capsule,delayed release RxNorm: 251747 1 Capsule(s) Oral every day 2019 Inactive amoxicillin 250 mg capsule RxNorm: 299413 1 Capsule(s) Oral three times a day 2019 Inactive multivitamin with iron-mineral tablet RxNorm: 1 Tablet(s) Oral every day 2021 Inactive cetirizine 10 mg tablet RxNorm: 3661053 1 Tablet(s) PO daily 2019 Inactive This refill negates all other refills of this medication. Please do not auto refill Singulair 10 mg tablet RxNorm: 068534 1 Tablet(s) PO daily 2019 Inactive This refill negates all other refills of this medication gabapentin 300 mg capsule RxNorm: 675520 1 Capsule(s) PO TID 2019 Inactive lisinopril 2.5 mg tablet RxNorm: 536271 1 Tablet(s) PO daily 2019 Inactive levothyroxine 50 mcg tablet RxNorm: 058168 1 Tablet(s) PO daily 2019 Inactive This refill negates all other refills of this medication hydrochlorothiazide 25 mg tablet RxNorm: 951040 1 Tablet(s) Oral every day 2019 Inactive fenugreek seed extract 500 mg capsule RxNorm: 1 Capsule(s) Oral three times a day 020 2021 Inactive Alcohol Prep Pads RxNorm: 378651 1 Patch TOP QAM 020 2020 Inactive loperamide 2 mg tablet RxNorm: 636459 1 Tablet(s) Oral as needed take one [...] 2019 Inactive hydrochlorothiazide 25 mg tablet RxNorm: 312714 1 Tablet(s) Oral every day 2019 Inactive Sudafed 12 Hour 120 mg tablet,extended release RxNorm: 9237192 1 Tablet(s) Oral every 12 hours as needed 2018 Inactive omeprazole 20 mg capsule,delayed release RxNorm: 241047 1 Capsule(s) Oral every day 019 2019 Inactive Sudafed 12 Hour 120 mg tablet,extended release RxNorm: 7131292 1 Tablet(s) Oral every 12 hours as needed 2018 Inactive pantoprazole 40 mg tablet,delayed release RxNorm: 844370 1 Tablet(s) Oral every day 2018 Inactive discontinue any other H2Blkr. and PPI albuterol sulfate 2.5 mg/3 mL (0.083 %) solution for nebulization RxNorm: 870572 1 Vial Inhalation every four hours as needed as needed for dyspnea 2019 Inactive 60/box. This refill negates all other refills of this medication. Please do not fill early. Please do not auto refill. Symbicort 160 mcg-4.5 mcg/actuation HFA aerosol inhaler RxNorm: 3932690 2 Puff(s) INH BID 019 No Stop Date Active Alcohol Prep Pads RxNorm: 074819 1 Patch TOP QAM 019 2019 Inactive Ventolin HFA 90 mcg/actuation aerosol inhaler RxNorm: 546946 2 Puff(s) INH QID 019 2019 Inactive Please do not fill early. Please do not auto refill. This refill negates all other refills of this medication True Metrix Glucose Test Strip RxNorm: 1 Test Strips Miscellaneous QAM 019 2019 Inactive 100/container atorvastatin 40 mg tablet RxNorm: 943693 1 Tablet(s) Oral every day 019 2019 Inactive buspirone 7.5 mg tablet RxNorm: 702198 1 Tablet(s) PO BID 019 2020 Inactive This refill negates all other refills of this medication hydrochlorothiazide 12.5 mg tablet RxNorm: 970339 1 Tablet(s) PO QAM 019 2019 Inactive levmetamfetamine 50 mg nasal inhaler RxNorm: 1 Unit(s) NASAL Q3-4H Do not use more than every 3 hours or 8 times/24hours 019 2021 Inactive Please do not auto refill. This refill negates all other refills of this medication Ventolin HFA 90 mcg/actuation aerosol inhaler RxNorm: 013651 2 Puff(s) INH QID 019 2018 Inactive Please do not fill early. Please do not auto refill. This refill negates all other refills of this medication Singulair 10 mg tablet RxNorm: 392877 1 Tablet(s) PO daily 019 2019 Inactive This refill negates all other refills of this medication cetirizine 10 mg tablet RxNorm: 4184885 1 Tablet(s) PO daily 019 2019 Inactive This refill negates all other refills of this medication. Please do not auto refill levothyroxine 50 mcg tablet RxNorm: 084672 1 Tablet(s) PO daily 019 2019 Inactive This refill negates all other refills of this medication diclofenac sodium 75 mg tablet,delayed release RxNorm: 700171 1 Tablet(s) PO BID 019 2019 Inactive This refill negates all other refills of this medication ranitidine 150 mg tablet RxNorm: 886685 1 Tablet(s) PO BID 019 2018 Inactive This refill negates all other refills of this medication Calcium 600-D3 Plus (mag-zinc) 600 mg calcium-800 unit-50 mg tablet RxNorm: 1 Tablet(s) PO daily take an additonal tablet for itching. 2018 Inactive This refill negates all other refills of this medication albuterol sulfate 2.5 mg/3 mL (0.083 %) solution for nebulization RxNorm: 476307 1 Vial INH QID 2018 Inactive 60/box. This refill negates all other refills of this medication. Please do not fill early. Please do not auto refill. lisinopril 2.5 mg tablet RxNorm: 649250 1 Tablet(s) PO daily 019 2019 Inactive gabapentin 300 mg capsule RxNorm: 390312 1 Capsule(s) PO TID 019 2019 Inactive atorvastatin 20 mg tablet RxNorm: 202752 1 Tablet(s) PO QHS 2018 Inactive This refill negates all other refills of this medication TRUEplus Lancets 30 gauge RxNorm: 1 Lancets Miscellaneous QAM 019 2018 Inactive 100/box gabapentin 300 mg capsule RxNorm: 490097 1 Capsule(s) PO TID 019 2018 Inactive Flintstones Complete (iron) 18 mg iron chewable tablet RxNorm: 1 Tablet(s) PO daily 019 2021 Inactive This refill negates all other refills of this medication gabapentin 300 mg capsule RxNorm: 024252 1 Capsule(s) PO TID as needed 019 2018 Inactive True Metrix Glucose Test Strip RxNorm: 1 Test Strips Miscellaneous QA 019 2018 Inactive 100/container Alcohol Prep Pads RxNorm: 153276 1 Patch TOP QA 019 2018 Inactive TRUEplus Lancets 30 gauge RxNorm: 1 Lancets Miscellaneous QAM 019 2018 Inactive 100/box lisinopril 2.5 mg tablet RxNorm: 236396 1 Tablet(s) PO daily 019 2018 Inactive ranitidine 150 mg tablet RxNorm: 076575 1 Tablet(s) PO BID 019 2018 Inactive This refill negates all other refills of this medication albuterol sulfate 2.5 mg/3 mL (0.083 %) solution for nebulization RxNorm: 416203 1 Vial INH QID 019 2018 Inactive [...] this medication gabapentin 300 mg capsule RxNorm: 818233 1 Capsule(s) PO TID as needed 019 2018 Inactive atorvastatin 20 mg tablet RxNorm: 374681 1 Tablet(s) PO QHS 019 2018 Inactive This refill negates all other refills of this medication trazodone 50 mg tablet RxNorm: 753080 1 Tablet(s) PO QHS 019 2018 Inactive This refill negates all other refills of this medication Ventolin HFA 90 mcg/actuation aerosol inhaler RxNorm: 135358 2 Puff(s) INH QID 019 2018 Inactive Please do not fill early. Please do not auto refill. This refill negates all other refills of this medication Calcium 600-D3 Plus 600 mg calcium-800 unit-50 mg tablet RxNorm: 1 Tablet(s) PO daily take an additonal tablet for itching. 019 2018 Inactive This refill negates all other refills of this medication Singulair 10 mg tablet RxNorm: 223831 1 Tablet(s) PO daily 019 2018 Inactive This refill negates all other refills of this medication buspirone 7.5 mg tablet RxNorm: 839748 1 Tablet(s) PO BID 019 2018 Inactive This refill negates all other refills of this medication diclofenac sodium 75 mg tablet,delayed release RxNorm: 188022 1 Tablet(s) PO BID 019 2018 Inactive This refill negates all other refills of this medication hydrochlorothiazide 12.5 mg tablet RxNorm: 783784 1 Tablet(s) PO QAM 019 2018 Inactive metoprolol succinate ER 50 mg tablet,extended release 24 hr RxNorm: 615663 1 Tablet(s) PO daily 019 2018 Inactive This refill negates all other refills of this medication levothyroxine 50 mcg tablet RxNorm: 344180 1 Tablet(s) PO daily 019 2018 Inactive This refill negates all other refills of this medication cetirizine 10 mg tablet RxNorm: 6825044 1 Tablet(s) PO daily 019 2018 Inactive This refill negates all other refills of this medication. Please do not auto refill Flintstones Complete (iron) 18 mg iron chewable tablet RxNorm: 1 Tablet(s) PO daily 019 2018 Inactive This refill negates all other refills of this medication buspirone 7.5 mg tablet RxNorm: 975886 1 Tablet(s) PO BID 019 2018 Inactive cetirizine 10 mg tablet RxNorm: 2662049 1 Tablet(s) PO daily 2018 Inactive Guaiasorb DM 10 mg-100 mg/5 mL oral liquid RxNorm: 845848 10 Milliliter(s) PO As needed every 4 hr 2018 Inactive Vicks Vaporub 4.7 %-1.2 %-2.6 % topical ointment RxNorm: 4795735 1 Application TOP TID 2018 Inactive levmetamfetamine 50 mg nasal inhaler RxNorm: 1 Unit(s) NASAL Q3-4H 2017 Inactive sertraline 50 mg tablet RxNorm: 087681 1 Tablet(s) PO daily 2018 Inactive Please note dose trazodone 50 mg tablet RxNorm: 821051 1 Tablet(s) PO QHS 2018 Inactive sertraline 50 mg tablet RxNorm: 475086 1 Tablet(s) PO daily 2017 Inactive amoxicillin 500 mg tablet RxNorm: 999278 1 Tablet(s) PO Q12H 2017 Inactive albuterol sulfate 2.5 mg/3 mL (0.083 %) solution for nebulization RxNorm: 257170 1 Vial INH QID 2018 Inactive 60/box. Please do not fill early. Please do not auto refill. Prozac 10 mg capsule RxNorm: 279706 1 Capsule(s) PO daily 2017 Inactive buspirone 7.5 mg tablet RxNorm: 495223 1 Tablet(s) PO BID 2018 Inactive gabapentin 300 mg capsule RxNorm: 061638 1 Capsule(s) PO TID as needed 2018 Inactive hydrochlorothiazide 12.5 mg tablet RxNorm: 201591 1 Tablet(s) PO QAM 2018 Inactive ranitidine 150 mg tablet RxNorm: 492069 1 Tablet(s) PO BID /18/ 2019 Inactive Macrobid 100 mg capsule RxNorm: 254037 1 Capsule(s) PO Q12H 018 2017 Inactive Singulair 10 mg tablet RxNorm: 958183 1 Tablet(s) PO daily 018 2018 Inactive Ventolin HFA 90 mcg/actuation aerosol inhaler RxNorm: 2016928 2 Puff(s) INH QID 018 2018 Inactive Singulair 10 mg tablet RxNorm: 929442 1 Tablet(s) PO daily 018 2017 Inactive buspirone 7.5 mg tablet RxNorm: 405056 1 Tablet(s) PO BID 018 2017 Inactive Prozac 10 mg capsule RxNorm: 314292 1 Capsule(s) PO daily 018 2017 Inactive diclofenac sodium 75 mg tablet,delayed release RxNorm: 527060 1 Tablet(s) PO BID 018 2017 Inactive lisinopril 2.5 mg tablet RxNorm: 274284 1 Tablet(s) PO daily 018 2017 Inactive Neilmed Pediatric Sinus Rinse Refill packet RxNorm: 1 Unit Dose NASAL PRN 018 2021 Inactive metoprolol succinate ER 50 mg tablet,extended release 24 hr RxNorm: 097902 1 Tablet(s) PO daily 018 2017 Inactive levothyroxine 50 mcg tablet RxNorm: 097827 1 Tablet(s) PO daily 018 2017 Inactive TRUEplus Lancets 30 gauge RxNorm: 1 Lancets Miscellaneous QAM 018 2017 Inactive 100/box Ventolin HFA 90 mcg/actuation aerosol inhaler RxNorm: 672587 2 Puff(s) INH QID 018 2017 Inactive Aleve 220 mg capsule RxNorm: 4358154 1 Capsule(s) PO BID 018 2018 Inactive ranitidine 150 mg tablet RxNorm: 590407 1 Tablet(s) PO BID 018 2017 Inactive gabapentin 300 mg capsule RxNorm: 673245 1 Capsule(s) PO TID as needed 018 2017 Inactive atorvastatin 20 mg tablet RxNorm: 130196 1 Tablet(s) PO QHS 018 2017 Inactive True Metrix Glucose Test Strip RxNorm: 1 Test Strips Miscellaneous QA 018 2017 Inactive 50/container Calcium 600-D3 Plus 600 mg calcium-800 unit-50 mg tablet RxNorm: 1 Tablet(s) PO daily take an additonal tablet for itching. 018 2017 Inactive hydrochlorothiazide 12.5 mg tablet RxNorm: 382747 1 Tablet(s) PO QAM 018 2017 Inactive Flintstones Complete (iron) 18 mg iron chewable tablet RxNorm: 1 Tablet(s) PO daily 018 2017 Inactive True Metrix Glucose Meter RxNorm: miscellaneous 019 2018 Inactive sertraline 50 mg tablet RxNorm: 943080 1 Tablet(s) PO daily 020 2019 Inactive loperamide 2 mg tablet RxNorm: 968202 oral 019 2018 Inactive d-mannose oral powder RxNorm: PO 018 2021 Inactive Symbicort 160 mcg-4.5 mcg/actuation HFA aerosol inhaler RxNorm: 8084867 2 Puff(s) INH BID 019 2018 Inactive [...] CPT-4: VACP Fall Risk Assessment SNOMED CT: 65879536 4 CPT-4: DFRA 01/13/2021 [place] Fany Assessment CPT-4: DSWA 12/01 Urinalysis, dip stick CPT-4: 48389 09/24/2020 Patient Health Questionnaire CPT-4: DPHQ Electrocardiogram CPT-4: 35572 05/14/2020 Tobacco Assessment/Screening CPT-4: TCA Fall Risk Assessment SNOMED CT: 04774037 4 CPT-4: DFRA 01/01/2020 Functional Assessment CPT-4: DFA 01/01/2020 [place] Fany Assessment CPT-4: DSWA 11/04 Patient Health Questionnaire CPT-4: DPHQ [place] Fany Assessment CPT-4: DSWA 10/03 Hypertension CPT-4: HTN 10/17/2019 Fall Risk Assessment SNOMED CT: 75822081 4 CPT-4: DFRA 09/19/2019 Functional Assessment CPT-4: DFA 09/19/2019 Urinalysis, dip stick CPT-4: 44072 06/21/2019 Tobacco Assessment/Screening CPT-4: TCA Patient Health Questionnaire CPT-4: DPHQ AHA/REBECCA Classification Assessment CPT-4: DAHA 04/25/2019 Controlled Substance Report CPT-4: CTRSU 04/03 Urinalysis, dip stick CPT-4: 64648 03/28/2019 Urinalysis, dip stick CPT-4: 89561 03/28/2019 Q6F-Rlsvgdeuebabldy CPT-4: 72214 Unknown O7V-Dxtzfjojhzbmypb CPT-4: 16583 Unknown A3V-Enwpebclcyalohr CPT-4: 93159 Unknown X4F-Ooyxbshizzygspe CPT-4: 53744 Unknown T8O-Wgadtdhymsjfsew CPT-4: 72188 Unknown B8H-Iagykmradzulgqy CPT-4: 51588 Unknown Z4C-Xhsraskcxqjqyev CPT-4: 68851 Unknown A1E-Lnzmfcyduqfxdmg CPT-4: 59820 Unknown V7M-Xltzlvankyyozwr CPT-4: 90133 Unknown Gynecology Referral SNOMED CT: 034247677 CPT-4: R14 Unknown Reason For Visit No [...] Referral: [facility] WPtel: [address] [facility] [address] Manager Rfid placed a call out to the patient to notify her that it has been recommended that she be seen by a urologist. Patient agreed to be seen, does not have a provider of choice and no transportation issues. Manager Rfid faxed referral and clinical notes to [facility] in [place], [place] near the patient's home. Patient to [...] seen and prefers a provider in the [place] or [place] area. Manager Rfid placed a call out to everyone listed in the area and the only location that was able to accept the patient's insurance was [address] [id number] and spoke with Maylin. Maylin asked that the patient's referral, face sheet and visit notes be faxed to . Manager Rfid faxed over requested documents. Patient appointment confirmation letter generated and mailed to her home address. Patient to call to schedule an appointment. Processed Referral: [facility] WPtel: [address] [place] [address] [place], [place] [id number] Patient notified that it has been advised that she be seen by Neurology. Patient agreed to be seen and prefers to be seen by a provider in the [place], [place] area. Patient denies any concerns with transportation, and prefers to schedule her own appointment. Manager Rfid placed a call out to [facility] and spoke with [...]
--- OUTSIDE RECORDS SUMMARY | 2023-12-07 02:19 | XMS_ITS | CCD ---
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 Unknown Has never used illegal drugs 05/31/2018 DNR Order/ Advanced Directive Unknown Full Code 05/31/2018 Allergies, Adverse Reactions, Alerts Substance Reaction Codes Entered Date Inactivated Date Status OxyContin itch, RxNorm: 846298 01/13/2021 No Inactive Da te Active *No [...] ICD-10: E78. 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) dr sharma therapy ICD-10: Z79.899 ICD-9: V58.69 04/25/2019 Inactive Type 2 diabetes mellitus wit hout complications ICD-10: E11.9 ICD-9: 250.00 10/03/2018 Inactive Wheezing ICD-10: R06.2 ICD-9: 786.07 08/08/2018 Inactive Abnormal urine finding ICD-10: R82.90 ICD-9: 791.9 09/24/2020 Resolved Abrasion of toe ICD-10: S90.416A ICD-9: 917.0 02/14/2020 Resolved [place] eye ICD-10: H10.029 ICD-9: 372.03 12/29/2019 Resolved [...] Fill Instructions lisinopril 2.5 mg tablet RxNorm: 821611 Take 1 Tablet(s) Oral every day 022 2021 Inactive gabapentin 300 mg capsule RxNorm: 133380 Take 1 Capsule(s) Oral three times a day 022 2021 Inactive montelukast 10 mg tablet RxNorm: 742763 Take 1 Tablet(s) Oral every day 022 2021 Inactive cholecalciferol (vitamin D3) 50 mcg (2,000 unit) tablet RxNorm: 852585 Take 1 Tablet(s) Oral every day 022 2022 Inactive Myrbetriq 50 mg tablet,extended release RxNorm: 7585670 1 Tablet(s) Oral every day 022 No Stop Date Active Ozempic 0.25 mg or 0.5 mg (2 mg/1.5 mL) subcutaneous pen injector RxNorm: 5133336 inject 0.5 milligrams subcutaneously every week 022 2021 Inactive Ozempic 0.25 mg or 0.5 mg (2 mg/1.5 mL) subcutaneous pen injector RxNorm: 3204007 Take 0.5 Capsule(s) Injection once a week 022 2021 Inactive omeprazole 20 mg capsule,delayed release RxNorm: 625738 Take 1 Capsule(s) Oral every evening 021 2020 Inactive Ozempic 0.25 mg or 0.5 mg (2 mg/1.5 mL) subcutaneous pen injector RxNorm: 7484568 Take 0.25 Milligram(s) Subcutaneous once a week 2021 Inactive Easy Touch Alcohol Prep Pads RxNorm: 105050 USE DIRECTED EACH MORNING 021 2021 Inactive Probiotic 10 billion cell capsule RxNorm: 1351049 Take 1 Capsule(s) Oral every day 021 2021 Inactive levothyroxine 50 mcg tablet RxNorm: 094331 Take 1 Tablet(s) Oral every day 2020 Inactive Acid Automatic Lathe Setter (famotidine) 20 mg tablet RxNorm: 585392 Take 1 Tablet(s) Oral every morning 2020 Inactive Heartburn Relief (famotidine) 10 mg tablet RxNorm: 953839 Take 1 Tablet(s) Oral QAM 021 2020 Inactive levothyroxine 50 mcg tablet RxNorm: 456838 Take 1 Tablet(s) Oral QD 2020 Inactive Singulair 10 mg tablet RxNorm: 234488 TAKE (1) TABLET BY MOUTH DAILY 2020 Inactive metformin 1,000 mg tablet RxNorm: 527058 1 Tablet(s) Oral two times a day 021 2021 Inactive lisinopril 2.5 mg tablet RxNorm: 502338 Take 1 Tablet(s) Oral every day 021 2020 Inactive hydrochlorothiazide 25 mg tablet RxNorm: 740881 Take 1 Tablet(s) Oral every day 021 2020 Inactive ondansetron 4 mg disintegrating tablet RxNorm: 444331 1 Tablet(s) Oral two times a day 021 2020 Inactive Sudafed 12 Hour 120 mg tablet,extended release RxNorm: 0604449 TAKE 1 TABLET BY MOUTH EVERY 12 HOURS NEEDED 021 2021 Inactive Heartburn Relief (famotidine) 10 mg tablet RxNorm: 109167 Take 1 Tablet(s) Oral every morning 021 2020 Inactive omeprazole 20 mg capsule,delayed release RxNorm: 328579 1 Capsule(s) Oral every evening 021 2020 Inactive sertraline 100 mg tablet RxNorm: 809469 2 Tablet(s) Oral every day 021 2020 Inactive levothyroxine 50 mcg tablet RxNorm: 745564 TAKE (1) TABLET BY MOUTH DAILY 021 2020 Inactive metformin 500 mg tablet RxNorm: 304948 1 Tablet(s) Oral two times a day take with 500mg to equal 1000mg 021 2020 Inactive gabapentin 300 mg capsule RxNorm: 918716 TAKE 1 CAPSULE BY MOUTH THREE TIMES A DAY 021 2020 Inactive lisinopril 2.5 mg tablet RxNorm: 076639 TAKE 1 TABLET BY MOUTH DAILY 021 2020 Inactive gabapentin 300 mg capsule RxNorm: 739357 TAKE 1 CAPSULE BY MOUTH THREE TIMES A DAY 021 2020 Inactive Singulair 10 mg tablet RxNorm: 121432 TAKE (1) TABLET BY MOUTH DAILY 021 2020 Inactive metformin 1,000 mg tablet RxNorm: 209858 1 Tablet(s) Oral two times a day 021 2020 Inactive atorvastatin 40 mg tablet RxNorm: 143715 1 Tablet(s) Oral every day 021 2020 Inactive omeprazole 20 mg capsule,delayed release RxNorm: 966792 1 Capsule(s) Oral every evening 021 2020 Inactive famotidine 10 mg tablet RxNorm: 976910 1 Tablet(s) Oral every morning 021 2020 Inactive Alcohol Prep Pads RxNorm: 735324 USE EACH MORNING 021 2020 Inactive omeprazole 20 mg capsule,delayed release RxNorm: 866510 1 Capsule(s) Oral two times a day 021 2021 Inactive omeprazole 20 mg capsule,delayed release RxNorm: 026901 TAKE 1 CAPSULE BY MOUTH EVERY DAY 2021 Inactive Macrobid 100 mg capsule RxNorm: 544748 1 Capsule(s) Oral every 12 hours with food 2020 Inactive omeprazole 20 mg capsule,delayed release RxNorm: 166123 1 Capsule(s) Oral two times a day 2021 Inactive metformin 1,000 mg tablet RxNorm: 905434 1 Tablet(s) Oral two times a day 2020 Inactive start on September 11, 2020 metformin 500 mg tablet RxNorm: 132010 1 Tablet(s) Oral two times a day take with 500mg to equal 1000mg 2019 Inactive gabapentin 300 mg capsule RxNorm: 092152 TAKE 1 CAPSULE BY MOUTH THREE TIMES DAILY 2020 Inactive cetirizine 10 mg tablet RxNorm: 3553411 TAKE (1) TABLET BY MOUTH DAILY 2020 Inactive metformin 500 mg tablet RxNorm: 498374 1 Tablet(s) Oral two times a day 2019 Inactive loperamide 2 mg tablet RxNorm: 294861 1 Tablet(s) Oral as needed take one tablet after each loose stool, maximum of 8 tablets in 24 hours 2021 Inactive Sudafed 12 Hour 120 mg tablet,extended release RxNorm: 1912478 TAKE 1 TABLET BY MOUTH EVERY 12 HOURS NEEDED 2019 Inactive hydrochlorothiazide 25 mg tablet RxNorm: 096641 TAKE (1) TABLET BY MOUTH EVERY DAY 2019 Inactive omeprazole 20 mg capsule,delayed release RxNorm: 777034 TAKE 1 CAPSULE BY MOUTH EVERY DAY 2020 Inactive metformin 500 mg tablet RxNorm: 306999 1 Tablet(s) Oral every day 2019 Inactive True Metrix Glucose Test Strip RxNorm: 1 Test Strips Miscellaneous two times a day as needed No Stop Date Active metformin 500 mg tablet RxNorm: 495416 1 Tablet(s) Oral every day 020 2019 Inactive diclofenac sodium 75 mg tablet,delayed release RxNorm: 713278 1 Tablet(s) PO BID 2021 Inactive This refill negates all other refills of this medication Sudafed 12 Hour 120 mg tablet,extended release RxNorm: 2673353 TAKE 1 TABLET BY MOUTH EVERY 12 HOURS NEEDED 2019 Inactive True Metrix Glucose Test Strip RxNorm: 1 Test Strips Miscellaneous every morning 020 2019 Inactive 100/container True Metrix Glucose Test Strip RxNorm: 1 Test Strips Miscellaneous QAM 020 2019 Inactive 100/container loperamide 2 mg tablet RxNorm: 025223 1 Tablet(s) Oral as needed take one tablet after each loose stool, maximum of 8 tablets in 24 hours 2019 Inactive cetirizine 10 mg tablet RxNorm: 7424188 1 Tablet(s) PO daily 2019 Inactive loperamide 2 mg tablet RxNorm: 605115 1 Tablet(s) Oral as needed take one tablet after each loose stool, maximum of 8 tablets in 24 hours 2019 Inactive quetiapine 100 mg tablet RxNorm: 955290 1 Tablet(s) Oral every night at bedtime 2019 Inactive levothyroxine 50 mcg tablet RxNorm: 825625 1 Tablet(s) PO daily 020 2020 Inactive gabapentin 300 mg capsule RxNorm: 086335 1 Capsule(s) PO TID 020 2019 Inactive levothyroxine 50 mcg tablet RxNorm: 746681 1 Tablet(s) PO daily 020 2019 Inactive lisinopril 2.5 mg tablet RxNorm: 270264 1 Tablet(s) PO daily 020 2020 Inactive gabapentin 300 mg capsule RxNorm: 594276 1 Capsule(s) PO TID 04/14/2019 Inactive cetirizine 10 mg tablet RxNorm: 8147425 1 Tablet(s) PO daily 2019 Inactive Singulair 10 mg tablet RxNorm: 948729 1 Tablet(s) PO daily 2020 Inactive gentamicin 0.3 % eye drops RxNorm: 834759 1 Drop(s) ophthalmic (eye) four times a day 2019 Inactive gentamicin 0.3 % eye drops RxNorm: 505996 1 Drop(s) ophthalmic (eye) four times a day 2019 Inactive gentamicin 0.3 % eye drops RxNorm: 003324 1 Drop(s) ophthalmic (eye) four times a day 2019 Inactive hydrochlorothiazide 25 mg tablet RxNorm: 221396 1 Tablet(s) Oral every day 2019 Inactive Sudafed 12 Hour 120 mg tablet,extended release RxNorm: 9392983 TAKE (1) TABLET BY MOUTH EVERY 12 HOURS NEEDED 2019 Inactive loperamide 2 mg tablet RxNorm: 226394 1 Tablet(s) Oral as needed take one tablet after each loose stool, maximum of 8 tablets in 24 hours 020 2019 Inactive loperamide 2 mg tablet RxNorm: 598405 1 Tablet(s) Oral as needed take one tablet after each loose stool, maximum of 8 tablets in 24 hours 2019 Inactive atorvastatin 40 mg tablet RxNorm: 384299 1 Tablet(s) Oral every day 2020 Inactive quetiapine 100 mg tablet RxNorm: 175331 1 Tablet(s) Oral every night at bedtime 2019 Inactive sertraline 100 mg tablet RxNorm: 502758 1 Tablet(s) Oral 2019 Inactive omeprazole 20 mg capsule,delayed release RxNorm: 221901 1 Capsule(s) Oral every day 2019 Inactive amoxicillin 250 mg capsule RxNorm: 810961 1 Capsule(s) Oral three times a day 020 2019 Inactive multivitamin with iron-mineral tablet RxNorm: 1 Tablet(s) Oral every day 020 2021 Inactive cetirizine 10 mg tablet RxNorm: 5383388 1 Tablet(s) PO daily 2019 Inactive This refill negates all other refills of this medication. Please do not auto refill Singulair 10 mg tablet RxNorm: 714022 1 Tablet(s) PO daily 2019 Inactive This refill negates all other refills of this medication gabapentin 300 mg capsule RxNorm: 405591 1 Capsule(s) PO TID 2019 Inactive lisinopril 2.5 mg tablet RxNorm: 786697 1 Tablet(s) PO daily 2019 Inactive levothyroxine 50 mcg tablet RxNorm: 153046 1 Tablet(s) PO daily 2019 Inactive This refill negates all other refills of this medication hydrochlorothiazide 25 mg tablet RxNorm: 099127 1 Tablet(s) Oral every day 2019 Inactive fenugreek seed extract 500 mg capsule RxNorm: 1 Capsule(s) Oral three times a day 2021 Inactive Alcohol Prep Pads RxNorm: 067748 1 Patch TOP QAM 020 2020 Inactive loperamide 2 mg tablet RxNorm: 535611 1 Tablet(s) Oral as needed take one [...] 2019 Inactive hydrochlorothiazide 25 mg tablet RxNorm: 797646 1 Tablet(s) Oral every day 019 2019 Inactive Sudafed 12 Hour 120 mg tablet,extended release RxNorm: 1353307 1 Tablet(s) Oral every 12 hours as needed 2018 Inactive omeprazole 20 mg capsule,delayed release RxNorm: 332746 1 Capsule(s) Oral every day 019 2019 Inactive Sudafed 12 Hour 120 mg tablet,extended release RxNorm: 8183968 1 Tablet(s) Oral every 12 hours as needed 019 2018 Inactive pantoprazole 40 mg tablet,delayed release RxNorm: 428312 1 Tablet(s) Oral every day 2018 Inactive discontinue any other H2Blkr. and PPI albuterol sulfate 2.5 mg/3 mL (0.083 %) solution for nebulization RxNorm: 284535 1 Vial Inhalation every four hours as needed as needed for dyspnea 2019 Inactive 60/box. This refill negates all other refills of this medication. Please do not fill early. Please do not auto refill. Symbicort 160 mcg-4.5 mcg/actuation HFA aerosol inhaler RxNorm: 6097689 2 Puff(s) INH BID No Stop Date Active Alcohol Prep Pads RxNorm: 249154 1 Patch TOP QAM 019 2019 Inactive Ventolin HFA 90 mcg/actuation aerosol inhaler RxNorm: 927914 2 Puff(s) INH QID 2019 Inactive Please do not fill early. Please do not auto refill. This refill negates all other refills of this medication True Metrix Glucose Test Strip RxNorm: 1 Test Strips Miscellaneous QAM 019 2019 Inactive 100/container atorvastatin 40 mg tablet RxNorm: 940198 1 Tablet(s) Oral every day 019 2019 Inactive buspirone 7.5 mg tablet RxNorm: 639461 1 Tablet(s) PO BID 019 2020 Inactive This refill negates all other refills of this medication hydrochlorothiazide 12.5 mg tablet RxNorm: 956650 1 Tablet(s) PO QAM 019 2019 Inactive levmetamfetamine 50 mg nasal inhaler RxNorm: 1 Unit(s) NASAL Q3-4H Do not use more than every 3 hours or 8 times/24hours 019 2021 Inactive Please do not auto refill. This refill negates all other refills of this medication Ventolin HFA 90 mcg/actuation aerosol inhaler RxNorm: 096174 2 Puff(s) INH QID 019 2018 Inactive Please do not fill early. Please do not auto refill. This refill negates all other refills of this medication Singulair 10 mg tablet RxNorm: 140746 1 Tablet(s) PO daily 019 2019 Inactive This refill negates all other refills of this medication cetirizine 10 mg tablet RxNorm: 2552951 1 Tablet(s) PO daily 019 2019 Inactive This refill negates all other refills of this medication. Please do not auto refill levothyroxine 50 mcg tablet RxNorm: 484345 1 Tablet(s) PO daily 019 2019 Inactive This refill negates all other refills of this medication diclofenac sodium 75 mg tablet,delayed release RxNorm: 780059 1 Tablet(s) PO BID 019 2019 Inactive This refill negates all other refills of this medication ranitidine 150 mg tablet RxNorm: 334857 1 Tablet(s) PO BID 019 2018 Inactive This refill negates all other refills of this medication Calcium 600-D3 Plus (mag-zinc) 600 mg calcium-800 unit-50 mg tablet RxNorm: 1 Tablet(s) PO daily take an additonal tablet for itching. 2018 Inactive This refill negates all other refills of this medication albuterol sulfate 2.5 mg/3 mL (0.083 %) solution for nebulization RxNorm: 970946 1 Vial INH QID 2018 Inactive 60/box. This refill negates all other refills of this medication. Please do not fill early. Please do not auto refill. lisinopril 2.5 mg tablet RxNorm: 042906 1 Tablet(s) PO daily 019 2019 Inactive gabapentin 300 mg capsule RxNorm: 062207 1 Capsule(s) PO TID 019 2019 Inactive atorvastatin 20 mg tablet RxNorm: 578014 1 Tablet(s) PO QHS 2018 Inactive This refill negates all other refills of this medication TRUEplus Lancets 30 gauge RxNorm: 1 Lancets Miscellaneous QAM 019 2018 Inactive 100/box gabapentin 300 mg capsule RxNorm: 443314 1 Capsule(s) PO TID 2018 Inactive Flintstones Complete (iron) 18 mg iron chewable tablet RxNorm: 1 Tablet(s) PO daily 019 2021 Inactive This refill negates all other refills of this medication gabapentin 300 mg capsule RxNorm: 653964 1 Capsule(s) PO TID as needed 2018 Inactive True Metrix Glucose Test Strip RxNorm: 1 Test Strips Miscellaneous QAM 019 2018 Inactive 100/container Alcohol Prep Pads RxNorm: 581202 1 Patch TOP QAM 2018 Inactive TRUEplus Lancets 30 gauge RxNorm: 1 Lancets Miscellaneous QAM 019 2018 Inactive 100/box lisinopril 2.5 mg tablet RxNorm: 988860 1 Tablet(s) PO daily 019 2018 Inactive ranitidine 150 mg tablet RxNorm: 845169 1 Tablet(s) PO BID 019 2018 Inactive This refill negates all other refills of this medication albuterol sulfate 2.5 mg/3 mL (0.083 %) solution for nebulization RxNorm: 523256 1 Vial INH QID 019 2018 Inactive [...] this medication gabapentin 300 mg capsule RxNorm: 808534 1 Capsule(s) PO TID as needed 019 2018 Inactive atorvastatin 20 mg tablet RxNorm: 131331 1 Tablet(s) PO QHS 019 2018 Inactive This refill negates all other refills of this medication trazodone 50 mg tablet RxNorm: 360376 1 Tablet(s) PO QHS 019 2018 Inactive This refill negates all other refills of this medication Ventolin HFA 90 mcg/actuation aerosol inhaler RxNorm: 964803 2 Puff(s) INH QID 019 2018 Inactive Please do not fill early. Please do not auto refill. This refill negates all other refills of this medication Calcium 600-D3 Plus 600 mg calcium-800 unit-50 mg tablet RxNorm: 1 Tablet(s) PO daily take an additonal tablet for itching. 019 2018 Inactive This refill negates all other refills of this medication Singulair 10 mg tablet RxNorm: 712672 1 Tablet(s) PO daily 019 2018 Inactive This refill negates all other refills of this medication buspirone 7.5 mg tablet RxNorm: 227785 1 Tablet(s) PO BID 019 2018 Inactive This refill negates all other refills of this medication diclofenac sodium 75 mg tablet,delayed release RxNorm: 587568 1 Tablet(s) PO BID 019 2018 Inactive This refill negates all other refills of this medication hydrochlorothiazide 12.5 mg tablet RxNorm: 385003 1 Tablet(s) PO QAM 019 2018 Inactive metoprolol succinate ER 50 mg tablet,extended release 24 hr RxNorm: 368510 1 Tablet(s) PO daily 019 2018 Inactive This refill negates all other refills of this medication levothyroxine 50 mcg tablet RxNorm: 420996 1 Tablet(s) PO daily 019 2018 Inactive This refill negates all other refills of this medication cetirizine 10 mg tablet RxNorm: 4131166 1 Tablet(s) PO daily 019 2018 Inactive This refill negates all other refills of this medication. Please do not auto refill Flintstones Complete (iron) 18 mg iron chewable tablet RxNorm: 1 Tablet(s) PO daily 019 2018 Inactive This refill negates all other refills of this medication buspirone 7.5 mg tablet RxNorm: 725436 1 Tablet(s) PO BID 019 2018 Inactive cetirizine 10 mg tablet RxNorm: 9500103 1 Tablet(s) PO daily 2018 Inactive Guaiasorb DM 10 mg-100 mg/5 mL oral liquid RxNorm: 332306 10 Milliliter(s) PO As needed every 4 hr 2018 Inactive Vicks Vaporub 4.7 %-1.2 %-2.6 % topical ointment RxNorm: 5825152 1 Application TOP TID 2018 Inactive levmetamfetamine 50 mg nasal inhaler RxNorm: 1 Unit(s) NASAL Q3-4H 2017 Inactive sertraline 50 mg tablet RxNorm: 122697 1 Tablet(s) PO daily 018 2018 Inactive Please note dose trazodone 50 mg tablet RxNorm: 163390 1 Tablet(s) PO QHS 018 2018 Inactive sertraline 50 mg tablet RxNorm: 131694 1 Tablet(s) PO daily 018 2017 Inactive amoxicillin 500 mg tablet RxNorm: 199210 1 Tablet(s) PO Q12H 018 2017 Inactive albuterol sulfate 2.5 mg/3 mL (0.083 %) solution for nebulization RxNorm: 092337 1 Vial INH QID 018 2018 Inactive 60/box. Please do not fill early. Please do not auto refill. Prozac 10 mg capsule RxNorm: 435641 1 Capsule(s) PO daily 018 2017 Inactive buspirone 7.5 mg tablet RxNorm: 372374 1 Tablet(s) PO BID 018 2018 Inactive gabapentin 300 mg capsule RxNorm: 150083 1 Capsule(s) PO TID as needed 2018 Inactive hydrochlorothiazide 12.5 mg tablet RxNorm: 722127 1 Tablet(s) PO QAM 018 2018 Inactive ranitidine 150 mg tablet RxNorm: 543656 1 Tablet(s) PO BID 018 2018 Inactive Macrobid 100 mg capsule RxNorm: 615935 1 Capsule(s) PO Q12H 018 2017 Inactive Singulair 10 mg tablet RxNorm: 619511 1 Tablet(s) PO daily 018 2018 Inactive Ventolin HFA 90 mcg/actuation aerosol inhaler RxNorm: 7247764 2 Puff(s) INH QID 018 2018 Inactive Singulair 10 mg tablet RxNorm: 756415 1 Tablet(s) PO daily 018 2017 Inactive buspirone 7.5 mg tablet RxNorm: 131102 1 Tablet(s) PO BID 018 2017 Inactive Prozac 10 mg capsule RxNorm: 356839 1 Capsule(s) PO daily 018 2017 Inactive diclofenac sodium 75 mg tablet,delayed release RxNorm: 623039 1 Tablet(s) PO BID 018 2017 Inactive lisinopril 2.5 mg tablet RxNorm: 298083 1 Tablet(s) PO daily 018 2017 Inactive Neilmed Pediatric Sinus Rinse Refill packet RxNorm: 1 Unit Dose NASAL PRN 018 2021 Inactive metoprolol succinate ER 50 mg tablet,extended release 24 hr RxNorm: 180779 1 Tablet(s) PO daily 018 2017 Inactive levothyroxine 50 mcg tablet RxNorm: 399528 1 Tablet(s) PO daily 018 2017 Inactive TRUEplus Lancets 30 gauge RxNorm: 1 Lancets Miscellaneous QAM 018 2017 Inactive 100/box Ventolin HFA 90 mcg/actuation aerosol inhaler RxNorm: 502707 2 Puff(s) INH QID 018 2017 Inactive Aleve 220 mg capsule RxNorm: 6441726 1 Capsule(s) PO BID 018 2018 Inactive ranitidine 150 mg tablet RxNorm: 242412 1 Tablet(s) PO BID 018 2017 Inactive gabapentin 300 mg capsule RxNorm: 862668 1 Capsule(s) PO TID as needed 018 2017 Inactive atorvastatin 20 mg tablet RxNorm: 642647 1 Tablet(s) PO QHS 018 2017 Inactive True Metrix Glucose Test Strip RxNorm: 1 Test Strips Miscellaneous QAM 018 2017 Inactive 50/container Calcium 600-D3 Plus 600 mg calcium-800 unit-50 mg tablet RxNorm: 1 Tablet(s) PO daily take an additonal tablet for itching. 018 2017 Inactive hydrochlorothiazide 12.5 mg tablet RxNorm: 440016 1 Tablet(s) PO QAM 018 2017 Inactive Flintstones Complete (iron) 18 mg iron chewable tablet RxNorm: 1 Tablet(s) PO daily 018 2017 Inactive True Metrix Glucose Meter RxNorm: miscellaneous 019 2018 Inactive sertraline 50 mg tablet RxNorm: 555679 1 Tablet(s) PO daily 020 2019 Inactive loperamide 2 mg tablet RxNorm: 090615 oral 019 2018 Inactive d-mannose oral powder RxNorm: PO 018 2021 Inactive Symbicort 160 mcg-4.5 mcg/actuation HFA aerosol inhaler RxNorm: 5499621 2 Puff(s) INH BID 2018 Inactive Medication [...] CPT-4: VACP Fall Risk Assessment SNOMED CT: 47435138 4 CPT-4: DFRA 01/13/2021 [place] Assessment CPT-4: DSWA 12/01 Urinalysis, dip stick CPT-4: 54951 09/24/2020 Patient Health Questionnaire CPT-4: DPHQ Electrocardiogram CPT-4: 00045 05/14/2020 Tobacco Assessment/Screening CPT-4: TCA Fall Risk Assessment SNOMED CT: 06759544 4 CPT-4: DFRA 01/01/2020 Functional Assessment CPT-4: DFA 01/01/2020 [place] Assessment CPT-4: DSWA 11/04 Patient Health Questionnaire CPT-4: DPHQ [place] Fany Assessment CPT-4: DSWA 10/03 Hypertension CPT-4: HTN 10/17/2019 Fall Risk Assessment SNOMED CT: 56009746 4 CPT-4: DFRA 09/19/2019 Functional Assessment CPT-4: DFA 09/19/2019 Urinalysis, dip stick CPT-4: 37452 06/21/2019 Tobacco Assessment/Screening CPT-4: TCA Patient Health Questionnaire CPT-4: DPHQ AHA/REBECCA Classification Assessment CPT-4: DAHA 04/25/2019 Controlled Substance Report CPT-4: CTRSU 04/03 Urinalysis, dip stick CPT-4: 89132 03/28/2019 Urinalysis, dip stick CPT-4: 80869 03/28/2019 G2E-Gtfqyudmuiefkhp CPT-4: 16576 Unknown E9D-Yhlqskztclcjnws CPT-4: 38969 Unknown B1V-Eicwsqqtshpfiho CPT-4: 47478 Unknown U6A-Ekskxrtvdplcpwv CPT-4: 47187 Unknown X0D-Yuiixpitjglnsfd CPT-4: 23781 Unknown I3T-Bbzpnfeshfluukw CPT-4: 89765 Unknown C8F-Fpokfubvzilprrw CPT-4: 95162 Unknown D0H-Zcjixdluasmsemn CPT-4: 13887 Unknown Gynecology Referral SNOMED CT: 741685924 CPT-4: R14 Unknown Reason For Visit No [...] Referral Initiated Referral: [facility] WPtel: [address] [place] [address] [address] [place] [address] [place] [employer]er placed a call out to the patient to notify her that it has been recommended that she be seen by a urologist. Patient agreed to be seen, does not have a provider of choice and no transportation issues. Ground Mixer faxed referral and clinical notes to [facility] in [place], [place] near the patient's home. Patient to [...] seen and prefers a provider in the [place] or [place] area. Ground Mixer placed a call out to everyone listed in the area and the only location that was able to accept the patient's insurance was [address] [address] and spoke with Maylin. Maylin asked that the patient's referral, face sheet and visit notes be faxed to . Ground [employer]er faxed over requested documents. Patient appointment confirmation letter generated and mailed to her home address. Patient to call to schedule an appointment. Processed Referral: [facility] WPtel: [address] [place], [place] [id number] Patient notified that it has been advised that she be seen by Neurology. Patient agreed to be seen and prefers to be seen by a provider in the [place], [place] area. Patient denies any concerns with transportation, and prefers to schedule her own appointment. Ground Mixer placed a call out to [facility] and spoke with [...]
--- OUTSIDE RECORDS SUMMARY | 2023-12-07 02:19 | XMS_ITS | CCD ---
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 Shelter Supervisor Name Role Phone Palomo KING, Anna Primary Care Provider Unav ailable Unavailable Chronic Care Management Unavaila ble Summary Purpose DataExchange Insurance Providers Payer name Policy type / Coverage type Covered green party ID Effective Begin Date Effective End Date SUKI MAYO [id number] Unknown Unknown Family history Mother Diagnosis Age [...] Unknown Disability 05/31/[address]: 476637456 Has never s moked or chewed tobacco 05/31/[address]: 329366594 Never drinks alco hol 05/31/2018 Has the patient ever used illegal drugs? Unknown Has never used illegal drugs 05/31/2018 DNR Order/ Advanced Directive Unknown Full Code 05/31/2018 Allergies, Adverse Reactions, Alerts Substance Reaction Codes Entered Date Inactivated Date Status OxyContin itch, RxNorm: 586536 01/13/2021 No Inactive Da te Active *No [...] ICD-10: E78. 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) use of non-steroidal anti-inflammatories (NSAID) [...] ICD-10: R51 ICD-9: 784.0 10/03/2018 Inactive Other manager long term care (current) dr sharma therapy ICD-10: Z79.899 ICD-9: V58.69 04/25/2019 Inactive Type 2 diabetes mellitus wit hout complications ICD-10: E11.9 ICD-9: 250.00 10/03/2018 Inactive Wheezing ICD-10: R06.2 ICD-9: 786.07 08/08/2018 Inactive Abnormal urine finding ICD-10: R82.90 ICD-9: 791.9 09/24/2020 Resolved Abrasion of toe ICD-10: S90.416A ICD-9: 917.0 02/14/2020 Resolved [place] eye ICD-10: H10.029 ICD-9: 372.03 12/29/2019 Resolved [...] Fill Instructions gabapentin 300 mg capsule RxNorm: 748424 Take 1 Capsule(s) Oral three times a day 022 2021 Inactive montelukast 10 mg tablet RxNorm: 471256 Take 1 Tablet(s) Oral every day 022 2021 Inactive cholecalciferol (vitamin D3) 50 mcg (2,000 unit) tablet RxNorm: 321474 Take 1 Tablet(s) Oral every day 022 2022 Inactive Myrbetriq 50 mg tablet,extended release RxNorm: 3353258 1 Tablet(s) Oral every day No Stop Date Active Ozempic 0.25 mg or 0.5 mg (2 mg/1.5 mL) subcutaneous pen injector RxNorm: 4384305 inject 0.5 milligrams subcutaneously every week 2021 Inactive Ozempic 0.25 mg or 0.5 mg (2 mg/1.5 mL) subcutaneous pen injector RxNorm: 0888222 Take 0.5 Capsule(s) Injection once a week 022 2021 Inactive omeprazole 20 mg capsule,delayed release RxNorm: 808411 Take 1 Capsule(s) Oral every evening 2020 Inactive Ozempic 0.25 mg or 0.5 mg (2 mg/1.5 mL) subcutaneous pen injector RxNorm: 0896019 Take 0.25 Milligram(s) Subcutaneous once a week 2021 Inactive Easy Touch Alcohol Prep Pads RxNorm: 015861 USE DIRECTED EACH MORNING 2021 Inactive Probiotic 10 billion cell capsule RxNorm: 6849018 Take 1 Capsule(s) Oral every day 021 2021 Inactive levothyroxine 50 mcg tablet RxNorm: 356553 Take 1 Tablet(s) Oral every day 2020 Inactive Acid Supervisor Asbestos Removal (famotidine) 20 mg tablet RxNorm: 425982 Take 1 Tablet(s) Oral every morning 2020 Inactive Heartburn Relief (famotidine) 10 mg tablet RxNorm: 708882 Take 1 Tablet(s) Oral QAM 2020 Inactive levothyroxine 50 mcg tablet RxNorm: 749868 Take 1 Tablet(s) Oral QD 2020 Inactive Singulair 10 mg tablet RxNorm: 978705 TAKE (1) TABLET BY MOUTH DAILY 2020 Inactive metformin 1,000 mg tablet RxNorm: 616181 1 Tablet(s) Oral two times a day 2021 Inactive lisinopril 2.5 mg tablet RxNorm: 791909 Take 1 Tablet(s) Oral every day 2020 Inactive hydrochlorothiazide 25 mg tablet RxNorm: 471465 Take 1 Tablet(s) Oral every day 021 2020 Inactive ondansetron 4 mg disintegrating tablet RxNorm: 362934 1 Tablet(s) Oral two times a day 021 2020 Inactive Sudafed 12 Hour 120 mg tablet,extended release RxNorm: 3533262 TAKE 1 TABLET BY MOUTH EVERY 12 HOURS NEEDED 2021 Inactive Heartburn Relief (famotidine) 10 mg tablet RxNorm: 704206 Take 1 Tablet(s) Oral every morning 021 2020 Inactive omeprazole 20 mg capsule,delayed release RxNorm: 141930 1 Capsule(s) Oral every evening 021 2020 Inactive sertraline 100 mg tablet RxNorm: 866623 2 Tablet(s) Oral every day 021 2020 Inactive levothyroxine 50 mcg tablet RxNorm: 894236 TAKE (1) TABLET BY MOUTH DAILY 021 2020 Inactive metformin 500 mg tablet RxNorm: 849189 1 Tablet(s) Oral two times a day take with 500mg to equal 1000mg 021 2020 Inactive gabapentin 300 mg capsule RxNorm: 360727 TAKE 1 CAPSULE BY MOUTH THREE TIMES A DAY 021 2020 Inactive lisinopril 2.5 mg tablet RxNorm: 465999 TAKE 1 TABLET BY MOUTH DAILY 021 2020 Inactive gabapentin 300 mg capsule RxNorm: 577099 TAKE 1 CAPSULE BY MOUTH THREE TIMES A DAY 021 2020 Inactive Singulair 10 mg tablet RxNorm: 068147 TAKE (1) TABLET BY MOUTH DAILY 021 2020 Inactive metformin 1,000 mg tablet RxNorm: 309849 1 Tablet(s) Oral two times a day 021 2020 Inactive atorvastatin 40 mg tablet RxNorm: 202091 1 Tablet(s) Oral every day 021 2020 Inactive omeprazole 20 mg capsule,delayed release RxNorm: 156651 1 Capsule(s) Oral every evening 021 2020 Inactive famotidine 10 mg tablet RxNorm: 315068 1 Tablet(s) Oral every morning 021 2020 Inactive Alcohol Prep Pads RxNorm: 785262 USE EACH MORNING 021 2020 Inactive omeprazole 20 mg capsule,delayed release RxNorm: 075033 1 Capsule(s) Oral two times a day 021 2021 Inactive omeprazole 20 mg capsule,delayed release RxNorm: 324077 TAKE 1 CAPSULE BY MOUTH EVERY DAY 021 2021 Inactive Macrobid 100 mg capsule RxNorm: 303330 1 Capsule(s) Oral every 12 hours with food 2020 Inactive omeprazole 20 mg capsule,delayed release RxNorm: 467535 1 Capsule(s) Oral two times a day 2021 Inactive metformin 1,000 mg tablet RxNorm: 397804 1 Tablet(s) Oral two times a day 2020 Inactive start on September 11, 2020 metformin 500 mg tablet RxNorm: 212602 1 Tablet(s) Oral two times a day take with 500mg to equal 1000mg 2019 Inactive gabapentin 300 mg capsule RxNorm: 238521 TAKE 1 CAPSULE BY MOUTH THREE TIMES DAILY 2020 Inactive cetirizine 10 mg tablet RxNorm: 6214468 TAKE (1) TABLET BY MOUTH DAILY 2020 Inactive metformin 500 mg tablet RxNorm: 319873 1 Tablet(s) Oral two times a day 2019 Inactive loperamide 2 mg tablet RxNorm: 373421 1 Tablet(s) Oral as needed take one tablet after each loose stool, maximum of 8 tablets in 24 hours 2021 Inactive Sudafed 12 Hour 120 mg tablet,extended release RxNorm: 9131511 TAKE 1 TABLET BY MOUTH EVERY 12 HOURS NEEDED 2019 Inactive hydrochlorothiazide 25 mg tablet RxNorm: 062439 TAKE (1) TABLET BY MOUTH EVERY DAY 2019 Inactive omeprazole 20 mg capsule,delayed release RxNorm: 748954 TAKE 1 CAPSULE BY MOUTH EVERY DAY 2020 Inactive metformin 500 mg tablet RxNorm: 278807 1 Tablet(s) Oral every day 2019 Inactive True Metrix Glucose Test Strip RxNorm: 1 Test Strips Miscellaneous two times a day as needed No Stop Date Active metformin 500 mg tablet RxNorm: 979494 1 Tablet(s) Oral every day 2019 Inactive diclofenac sodium 75 mg tablet,delayed release RxNorm: 889354 1 Tablet(s) PO BID 2021 Inactive This refill negates all other refills of this medication Sudafed 12 Hour 120 mg tablet,extended release RxNorm: 4967435 TAKE 1 TABLET BY MOUTH EVERY 12 HOURS NEEDED 020 2019 Inactive True Metrix Glucose Test Strip RxNorm: 1 Test Strips Miscellaneous every morning 020 2019 Inactive 100/container True Metrix Glucose Test Strip RxNorm: 1 Test Strips Miscellaneous QAM 020 2019 Inactive 100/container loperamide 2 mg tablet RxNorm: 103996 1 Tablet(s) Oral as needed take one tablet after each loose stool, maximum of 8 tablets in 24 hours 020 2019 Inactive cetirizine 10 mg tablet RxNorm: 1484606 1 Tablet(s) PO daily 2019 Inactive loperamide 2 mg tablet RxNorm: 598625 1 Tablet(s) Oral as needed take one tablet after each loose stool, maximum of 8 tablets in 24 hours 020 2019 Inactive quetiapine 100 mg tablet RxNorm: 286694 1 Tablet(s) Oral every night at bedtime 2019 Inactive levothyroxine 50 mcg tablet RxNorm: 689381 1 Tablet(s) PO daily 020 2020 Inactive gabapentin 300 mg capsule RxNorm: 188148 1 Capsule(s) PO TID 020 2019 Inactive levothyroxine 50 mcg tablet RxNorm: 289402 1 Tablet(s) PO daily 020 2019 Inactive lisinopril 2.5 mg tablet RxNorm: 375638 1 Tablet(s) PO daily 020 2020 Inactive gabapentin 300 mg capsule RxNorm: 238726 1 Capsule(s) PO TID 020 2019 Inactive cetirizine 10 mg tablet RxNorm: 2845977 1 Tablet(s) PO daily 020 2019 Inactive Singulair 10 mg tablet RxNorm: 564766 1 Tablet(s) PO daily 2020 Inactive gentamicin 0.3 % eye drops RxNorm: 476593 1 Drop(s) ophthalmic (eye) four times a day 2019 Inactive gentamicin 0.3 % eye drops RxNorm: 097822 1 Drop(s) ophthalmic (eye) four times a day 2019 Inactive gentamicin 0.3 % eye drops RxNorm: 515806 1 Drop(s) ophthalmic (eye) four times a day 2019 Inactive hydrochlorothiazide 25 mg tablet RxNorm: 338329 1 Tablet(s) Oral every day 2019 Inactive Sudafed 12 Hour 120 mg tablet,extended release RxNorm: 2400528 TAKE (1) TABLET BY MOUTH EVERY 12 HOURS NEEDED 2019 Inactive loperamide 2 mg tablet RxNorm: 224885 1 Tablet(s) Oral as needed take one tablet after each loose stool, maximum of 8 tablets in 24 hours 2019 Inactive loperamide 2 mg tablet RxNorm: 320498 1 Tablet(s) Oral as needed take one tablet after each loose stool, maximum of 8 tablets in 24 hours 2019 Inactive atorvastatin 40 mg tablet RxNorm: 357526 1 Tablet(s) Oral every day 2020 Inactive quetiapine 100 mg tablet RxNorm: 042294 1 Tablet(s) Oral every night at bedtime 2019 Inactive sertraline 100 mg tablet RxNorm: 004613 1 Tablet(s) Oral 2019 Inactive omeprazole 20 mg capsule,delayed release RxNorm: 018461 1 Capsule(s) Oral every day 020 2019 Inactive amoxicillin 250 mg capsule RxNorm: 495636 1 Capsule(s) Oral three times a day 020 2019 Inactive multivitamin with iron-mineral tablet RxNorm: 1 Tablet(s) Oral every day 020 2021 Inactive cetirizine 10 mg tablet RxNorm: 3192555 1 Tablet(s) PO daily 2019 Inactive This refill negates all other refills of this medication. Please do not auto refill Singulair 10 mg tablet RxNorm: 801137 1 Tablet(s) PO daily 2019 Inactive This refill negates all other refills of this medication gabapentin 300 mg capsule RxNorm: 384945 1 Capsule(s) PO TID 2019 Inactive lisinopril 2.5 mg tablet RxNorm: 527349 1 Tablet(s) PO daily 2019 Inactive levothyroxine 50 mcg tablet RxNorm: 641757 1 Tablet(s) PO daily 2019 Inactive This refill negates all other refills of this medication hydrochlorothiazide 25 mg tablet RxNorm: 137409 1 Tablet(s) Oral every day 2019 Inactive fenugreek seed extract 500 mg capsule RxNorm: 1 Capsule(s) Oral three times a day 2021 Inactive Alcohol Prep Pads RxNorm: 337976 1 Patch TOP QAM 2020 Inactive loperamide 2 mg tablet RxNorm: 951623 1 Tablet(s) Oral as needed take one [...] 2019 Inactive hydrochlorothiazide 25 mg tablet RxNorm: 682968 1 Tablet(s) Oral every day 019 2019 Inactive Sudafed 12 Hour 120 mg tablet,extended release RxNorm: 5097494 1 Tablet(s) Oral every 12 hours as needed 019 2018 Inactive omeprazole 20 mg capsule,delayed release RxNorm: 278694 1 Capsule(s) Oral every day 019 2019 Inactive Sudafed 12 Hour 120 mg tablet,extended release RxNorm: 2247294 1 Tablet(s) Oral every 12 hours as needed 019 2018 Inactive pantoprazole 40 mg tablet,delayed release RxNorm: 591168 1 Tablet(s) Oral every day 019 2018 Inactive discontinue any other H2Blkr. and PPI albuterol sulfate 2.5 mg/3 mL (0.083 %) solution for nebulization RxNorm: 883102 1 Vial Inhalation every four hours as needed as needed for dyspnea 2019 Inactive 60/box. This refill negates all other refills of this medication. Please do not fill early. Please do not auto refill. Symbicort 160 mcg-4.5 mcg/actuation HFA aerosol inhaler RxNorm: 1195628 2 Puff(s) INH BID 019 No Stop Date Active Alcohol Prep Pads RxNorm: 206928 1 Patch TOP QAM 019 2019 Inactive Ventolin HFA 90 mcg/actuation aerosol inhaler RxNorm: 695186 2 Puff(s) INH QID 2019 Inactive Please do not fill early. Please do not auto refill. This refill negates all other refills of this medication True Metrix Glucose Test Strip RxNorm: 1 Test Strips Miscellaneous QAM 019 2019 Inactive 100/container atorvastatin 40 mg tablet RxNorm: 643736 1 Tablet(s) Oral every day 019 2019 Inactive buspirone 7.5 mg tablet RxNorm: 195349 1 Tablet(s) PO BID 019 2020 Inactive This refill negates all other refills of this medication hydrochlorothiazide 12.5 mg tablet RxNorm: 150721 1 Tablet(s) PO QAM 019 2019 Inactive levmetamfetamine 50 mg nasal inhaler RxNorm: 1 Unit(s) NASAL Q3-4H Do not use more than every 3 hours or 8 times/24hours 019 2021 Inactive Please do not auto refill. This refill negates all other refills of this medication Ventolin HFA 90 mcg/actuation aerosol inhaler RxNorm: 235896 2 Puff(s) INH QID 019 2018 Inactive Please do not fill early. Please do not auto refill. This refill negates all other refills of this medication Singulair 10 mg tablet RxNorm: 005288 1 Tablet(s) PO daily 019 2019 Inactive This refill negates all other refills of this medication cetirizine 10 mg tablet RxNorm: 6126486 1 Tablet(s) PO daily 019 2019 Inactive This refill negates all other refills of this medication. Please do not auto refill levothyroxine 50 mcg tablet RxNorm: 746130 1 Tablet(s) PO daily 019 2019 Inactive This refill negates all other refills of this medication diclofenac sodium 75 mg tablet,delayed release RxNorm: 071899 1 Tablet(s) PO BID 019 2019 Inactive This refill negates all other refills of this medication ranitidine 150 mg tablet RxNorm: 063602 1 Tablet(s) PO BID 019 2018 Inactive This refill negates all other refills of this medication Calcium 600-D3 Plus (mag-zinc) 600 mg calcium-800 unit-50 mg tablet RxNorm: 1 Tablet(s) PO daily take an additonal tablet for itching. 019 2018 Inactive This refill negates all other refills of this medication albuterol sulfate 2.5 mg/3 mL (0.083 %) solution for nebulization RxNorm: 038368 1 Vial INH QID 2018 Inactive 60/box. This refill negates all other refills of this medication. Please do not fill early. Please do not auto refill. lisinopril 2.5 mg tablet RxNorm: 885570 1 Tablet(s) PO daily 019 2019 Inactive gabapentin 300 mg capsule RxNorm: 968533 1 Capsule(s) PO TID 019 2019 Inactive atorvastatin 20 mg tablet RxNorm: 642094 1 Tablet(s) PO QHS 2018 Inactive This refill negates all other refills of this medication TRUEplus Lancets 30 gauge RxNorm: 1 Lancets Miscellaneous QAM 019 2018 Inactive 100/box gabapentin 300 mg capsule RxNorm: 640386 1 Capsule(s) PO TID 2018 Inactive Flintstones Complete (iron) 18 mg iron chewable tablet RxNorm: 1 Tablet(s) PO daily 019 2021 Inactive This refill negates all other refills of this medication gabapentin 300 mg capsule RxNorm: 023392 1 Capsule(s) PO TID as needed 019 2018 Inactive True Metrix Glucose Test Strip RxNorm: 1 Test Strips Miscellaneous QA 2018 Inactive 100/container Alcohol Prep Pads RxNorm: 651626 1 Patch TOP QAM 2018 Inactive TRUEplus Lancets 30 gauge RxNorm: 1 Lancets Miscellaneous QAM 019 2018 Inactive 100/box lisinopril 2.5 mg tablet RxNorm: 073121 1 Tablet(s) PO daily 019 2018 Inactive ranitidine 150 mg tablet RxNorm: 189556 1 Tablet(s) PO BID 019 2018 Inactive This refill negates all other refills of this medication albuterol sulfate 2.5 mg/3 mL (0.083 %) solution for nebulization RxNorm: 181259 1 Vial INH QID 019 2018 Inactive [...] this medication gabapentin 300 mg capsule RxNorm: 269544 1 Capsule(s) PO TID as needed 019 2018 Inactive atorvastatin 20 mg tablet RxNorm: 170302 1 Tablet(s) PO QHS 019 2018 Inactive This refill negates all other refills of this medication trazodone 50 mg tablet RxNorm: 170384 1 Tablet(s) PO QHS 019 2018 Inactive This refill negates all other refills of this medication Ventolin HFA 90 mcg/actuation aerosol inhaler RxNorm: 908203 2 Puff(s) INH QID 019 2018 Inactive Please do not fill early. Please do not auto refill. This refill negates all other refills of this medication Calcium 600-D3 Plus 600 mg calcium-800 unit-50 mg tablet RxNorm: 1 Tablet(s) PO daily take an additonal tablet for itching. 019 2018 Inactive This refill negates all other refills of this medication Singulair 10 mg tablet RxNorm: 519329 1 Tablet(s) PO daily 019 2018 Inactive This refill negates all other refills of this medication buspirone 7.5 mg tablet RxNorm: 413576 1 Tablet(s) PO BID 019 2018 Inactive This refill negates all other refills of this medication diclofenac sodium 75 mg tablet,delayed release RxNorm: 864766 1 Tablet(s) PO BID 019 2018 Inactive This refill negates all other refills of this medication hydrochlorothiazide 12.5 mg tablet RxNorm: 209890 1 Tablet(s) PO QAM 019 2018 Inactive metoprolol succinate ER 50 mg tablet,extended release 24 hr RxNorm: 530454 1 Tablet(s) PO daily 019 2018 Inactive This refill negates all other refills of this medication levothyroxine 50 mcg tablet RxNorm: 681861 1 Tablet(s) PO daily 019 2018 Inactive This refill negates all other refills of this medication cetirizine 10 mg tablet RxNorm: 4584333 1 Tablet(s) PO daily 019 2018 Inactive This refill negates all other refills of this medication. Please do not auto refill Flintstones Complete (iron) 18 mg iron chewable tablet RxNorm: 1 Tablet(s) PO daily 019 2018 Inactive This refill negates all other refills of this medication buspirone 7.5 mg tablet RxNorm: 603435 1 Tablet(s) PO BID 019 2018 Inactive cetirizine 10 mg tablet RxNorm: 2539310 1 Tablet(s) PO daily 2018 Inactive Guaiasorb DM 10 mg-100 mg/5 mL oral liquid RxNorm: 826910 10 Milliliter(s) PO As needed every 4 hr 2018 Inactive Vicks Vaporub 4.7 %-1.2 %-2.6 % topical ointment RxNorm: 8947109 1 Application TOP TID 2018 Inactive levmetamfetamine 50 mg nasal inhaler RxNorm: 1 Unit(s) NASAL Q3-4H 018 2017 Inactive sertraline 50 mg tablet RxNorm: 017784 1 Tablet(s) PO daily 2018 Inactive Please note dose trazodone 50 mg tablet RxNorm: 282793 1 Tablet(s) PO QHS 018 2018 Inactive sertraline 50 mg tablet RxNorm: 867401 1 Tablet(s) PO daily 018 2017 Inactive amoxicillin 500 mg tablet RxNorm: 638083 1 Tablet(s) PO Q12H 018 2017 Inactive albuterol sulfate 2.5 mg/3 mL (0.083 %) solution for nebulization RxNorm: 156636 1 Vial INH QID 018 2018 Inactive 60/box. Please do not fill early. Please do not auto refill. Prozac 10 mg capsule RxNorm: 403316 1 Capsule(s) PO daily 018 2017 Inactive buspirone 7.5 mg tablet RxNorm: 827575 1 Tablet(s) PO BID 018 2018 Inactive gabapentin 300 mg capsule RxNorm: 248350 1 Capsule(s) PO TID as needed 018 2018 Inactive hydrochlorothiazide 12.5 mg tablet RxNorm: 601620 1 Tablet(s) PO QAM 018 2018 Inactive ranitidine 150 mg tablet RxNorm: 163752 1 Tablet(s) PO BID 018 2018 Inactive Macrobid 100 mg capsule RxNorm: 384584 1 Capsule(s) PO Q12H 018 2017 Inactive Singulair 10 mg tablet RxNorm: 260038 1 Tablet(s) PO daily 018 2018 Inactive Ventolin HFA 90 mcg/actuation aerosol inhaler RxNorm: 1251217 2 Puff(s) INH QID 018 2018 Inactive Singulair 10 mg tablet RxNorm: 817426 1 Tablet(s) PO daily 018 2017 Inactive buspirone 7.5 mg tablet RxNorm: 009954 1 Tablet(s) PO BID 018 2017 Inactive Prozac 10 mg capsule RxNorm: 894360 1 Capsule(s) PO daily 018 2017 Inactive diclofenac sodium 75 mg tablet,delayed release RxNorm: 356881 1 Tablet(s) PO BID 018 2017 Inactive lisinopril 2.5 mg tablet RxNorm: 422365 1 Tablet(s) PO daily 018 2017 Inactive Neilmed Pediatric Sinus Rinse Refill packet RxNorm: 1 Unit Dose NASAL PRN 018 2021 Inactive metoprolol succinate ER 50 mg tablet,extended release 24 hr RxNorm: 730863 1 Tablet(s) PO daily 018 2017 Inactive levothyroxine 50 mcg tablet RxNorm: 721665 1 Tablet(s) PO daily 018 2017 Inactive TRUEplus Lancets 30 gauge RxNorm: 1 Lancets Miscellaneous QAM 018 2017 Inactive 100/box Ventolin HFA 90 mcg/actuation aerosol inhaler RxNorm: 737974 2 Puff(s) INH QID 018 2017 Inactive Aleve 220 mg capsule RxNorm: 0605522 1 Capsule(s) PO BID 018 2018 Inactive ranitidine 150 mg tablet RxNorm: 137890 1 Tablet(s) PO BID 018 2017 Inactive gabapentin 300 mg capsule RxNorm: 013655 1 Capsule(s) PO TID as needed 018 2017 Inactive atorvastatin 20 mg tablet RxNorm: 200608 1 Tablet(s) PO QHS 018 2017 Inactive True Metrix Glucose Test Strip RxNorm: 1 Test Strips Miscellaneous QAM 018 2017 Inactive 50/container Calcium 600-D3 Plus 600 mg calcium-800 unit-50 mg tablet RxNorm: 1 Tablet(s) PO daily take an additonal tablet for itching. 018 2017 Inactive hydrochlorothiazide 12.5 mg tablet RxNorm: 050800 1 Tablet(s) PO QAM 018 2017 Inactive Flintstones Complete (iron) 18 mg iron chewable tablet RxNorm: 1 Tablet(s) PO daily 018 2017 Inactive True Metrix Glucose Meter RxNorm: miscellaneous 019 2018 Inactive sertraline 50 mg tablet RxNorm: 570340 1 Tablet(s) PO daily 020 2019 Inactive loperamide 2 mg tablet RxNorm: 411829 oral 019 2018 Inactive d-mannose oral powder RxNorm: PO 018 2021 Inactive Symbicort 160 mcg-4.5 mcg/actuation HFA aerosol inhaler RxNorm: 3116952 2 Puff(s) INH BID 019 2018 Inactive [...] CPT-4: VACP Fall Risk Assessment SNOMED CT: 41165358 4 CPT-4: DFRA 01/13/2021 [place] Assessment CPT-4: DSWA 12/01 Urinalysis, dip stick CPT-4: 03388 09/24/2020 Patient Health Questionnaire CPT-4: DPHQ Electrocardiogram CPT-4: 42178 05/14/2020 Tobacco Assessment/Screening CPT-4: TCA Fall Risk Assessment SNOMED CT: 44908708 4 CPT-4: DFRA 01/01/2020 Functional Assessment CPT-4: DFA 01/01/2020 [place] Assessment CPT-4: DSWA 11/04 Patient Health Questionnaire CPT-4: DPHQ [place] Assessment CPT-4: DSWA 10/03 Hypertension CPT-4: HTN 10/17/2019 Fall Risk Assessment SNOMED CT: 42442773 4 CPT-4: DFRA 09/19/2019 Functional Assessment CPT-4: DFA 09/19/2019 Urinalysis, dip stick CPT-4: 81996 06/21/2019 Tobacco Assessment/Screening CPT-4: TCA Patient Health Questionnaire CPT-4: DPHQ AHA/REBECCA Classification Assessment CPT-4: DAHA 04/25/2019 Controlled Substance Report CPT-4: CTRSU 04/03 Urinalysis, dip stick CPT-4: 58259 03/28/2019 Urinalysis, dip stick CPT-4: 19622 03/28/2019 I4I-Joywiysudhfhxzf CPT-4: 49771 Unknown C2E-Olmsvpyuekqgkae CPT-4: 44629 Unknown I6D-Nnoqiqplepedmlf CPT-4: 60273 Unknown S7U-Igxdpzipuvlmtep CPT-4: 87008 Unknown L7L-Mdaxdldqkwjihqh CPT-4: 22525 Unknown U8P-Eglkwwghodaabwm CPT-4: 20281 Unknown N7U-Whlnzuiaodyqprl CPT-4: 52318 Unknown H2S-Fksmfloeqymrigp CPT-4: 72702 Unknown Gynecology Referral SNOMED CT: 532995557 CPT-4: R14 Unknown Reason For Visit No Reason For Visit data Plan of Care Planned Activity Notes Codes Status Date Referral: Pending Gynecology Referral Information Referral Processed Referral: Pending Pulmonolog y Referral Information Referral Processed Referral: Pending Psychiatry Referral Information Referral Initiated Referral: Pending Respirator y Services Referral Information Referral Initiated Referral: Pending Ophthalmol ogy Referral Information Referral Initiated Referral: [facility] WPtel: [address] [place] [address] [address] [place] [address] [place] Cardiac Cath Technician placed a call out to the patient to notify her that it has been recommended that she be seen by a urologist. Patient agreed to be seen, does not have a provider of choice and no transportation issues. Cardiac Cath Technician faxed referral and clinical notes to [facility] in [place], [place] near the patient's home. Patient to [...] seen and prefers a provider in the [place] or [place] area. Cardiac Cath Technician placed a call out to everyone listed in the area and the only location that was able to accept the patient's insurance was [facility] Ophthalmology [facility] [place] [address] and spoke with Maylin. Maylin asked that the patient's referral, face sheet and visit notes be faxed to . Cardiac Cath Technician faxed over requested documents. Patient appointment confirmation letter generated and mailed to her home address. Patient to call to schedule an appointment. Processed Referral: [facility] Neurolog y WPtel: [address] [place] [address] Patient notified that it has been advised that she be seen by Neurology. Patient agreed to be seen and prefers to be seen by a provider in the [place], [place] area. Patient denies any concerns with transportation, and prefers to schedule her own appointment. Cardiac Cath Technician placed a call out to [facility] [email or web address]
--- OUTSIDE RECORDS SUMMARY | 2023-12-07 02:19 | XMS_ITS | CCD ---
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 Unknown Has never used illegal drugs 05/31/2018 DNR Order/ Advanced Directive Unknown Full Code 05/31/2018 Allergies, Adverse Reactions, Alerts Substance Reaction Codes Entered Date Inactivated Date Status OxyContin itch, RxNorm: 450779 01/13/2021 No Inactive Da te Active *No known food allergies Unknown 09/06/2018 No I nactive Date Active Methylprednisolone hives RxNorm: 6902 09/06/2018 No Inac tive Date Active Problems Condition Codes Effective Dates Condition St atus Edema, unspecified ICD-10: R60.9 ICD-9: 782.3 07/11/2018 Active GERD (gastroesophageal reflu x disease) ICD-10: [...] ICD-10: E78. 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 cardboard cutter (current) use of non-steroidal anti-inflammatories (NSAID) ICD-10: Z79.1 ICD-9: V58.64 06/13/2018 Resolved Patient Not Seen ICD-10: UXZ.01 ICD-9: XZ0.1 04/27/2019 Resolved Patient not seen ICD-10: UXZ.01 ICD-9: UXZ.01 09/10/2021 Resolved Upper respiratory infection ICD-10: J06. 9 ICD-9: 465.9 06/02/2021 Resolved Syncope and collapse ICD-10: R55 ICD-9: 780.2 01/01/2020 Active Adjustment disorder with mix ed anxiety [...] ICD-10: R51 ICD-9: 784.0 10/03/2018 Inactive Other singe winder (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 ICD-10: Z79.899 ICD-9: V58.69 04/25/2019 Inactive Type 2 diabetes mellitus wit hout complications ICD-10: E11.9 ICD-9: 250.00 10/03/2018 Inactive Wheezing ICD-10: R06.2 ICD-9: 786.07 08/08/2018 Inactive Abnormal urine finding ICD-10: R82.90 ICD-9: 791.9 09/24/2020 Resolved Abrasion of toe ICD-10: S90.416A ICD-9: 917.0 02/14/[address] [place] eye ICD-10: H10.029 ICD-9: 372.03 12/29/2019 Resolved [...] D3) 50 mcg (2,000 unit) tablet RxNorm: 061190 Take 1 Tablet(s) Oral every day 022 2022 Inactive Myrbetriq 50 mg tablet,extended release RxNorm: 4857843 1 Tablet(s) Oral every day 022 No Stop Date Active Ozempic 0.25 mg or 0.5 mg (2 mg/1.5 mL) subcutaneous pen injector RxNorm: 6370304 inject 0.5 milligrams subcutaneously every week 022 2021 Inactive Ozempic 0.25 mg or 0.5 mg (2 mg/1.5 mL) subcutaneous pen injector RxNorm: 5252633 Take 0.5 Capsule(s) Injection once a week 022 2021 Inactive omeprazole 20 mg capsule,delayed release RxNorm: 342157 Take 1 Capsule(s) Oral every evening 021 2020 Inactive Ozempic 0.25 mg or 0.5 mg (2 mg/1.5 mL) subcutaneous pen injector RxNorm: 2753430 Take 0.25 Milligram(s) Subcutaneous once a week 021 2021 Inactive Easy Touch Alcohol Prep Pads RxNorm: 692989 USE DIRECTED EACH MORNING 021 2021 Inactive Probiotic 10 billion cell capsule RxNorm: 4457697 Take 1 Capsule(s) Oral every day 021 2021 Inactive levothyroxine 50 mcg tablet RxNorm: 443594 Take 1 Tablet(s) Oral every day 021 2020 Inactive Acid Hand Sewer Shoes (famotidine) 20 mg tablet RxNorm: 650975 Take 1 Tablet(s) Oral every morning 021 2020 Inactive Heartburn Relief (famotidine) 10 mg tablet RxNorm: 463747 Take 1 Tablet(s) Oral QAM 021 2020 Inactive levothyroxine 50 mcg tablet RxNorm: 185828 Take 1 Tablet(s) Oral QD 2020 Inactive Singulair 10 mg tablet RxNorm: 309885 TAKE (1) TABLET BY MOUTH DAILY 021 2020 Inactive metformin 1,000 mg tablet RxNorm: 402902 1 Tablet(s) Oral two times a day 021 2021 Inactive lisinopril 2.5 mg tablet RxNorm: 037845 Take 1 Tablet(s) Oral every day 021 2020 Inactive hydrochlorothiazide 25 mg tablet RxNorm: 047078 Take 1 Tablet(s) Oral every day 021 2020 Inactive ondansetron 4 mg disintegrating tablet RxNorm: 061410 1 Tablet(s) Oral two times a day 021 2020 Inactive Sudafed 12 Hour 120 mg tablet,extended release RxNorm: 0933779 TAKE 1 TABLET BY MOUTH EVERY 12 HOURS NEEDED 021 2021 Inactive Heartburn Relief (famotidine) 10 mg tablet RxNorm: 095982 Take 1 Tablet(s) Oral every morning 021 2020 Inactive omeprazole 20 mg capsule,delayed release RxNorm: 981668 1 Capsule(s) Oral every evening 021 2020 Inactive sertraline 100 mg tablet RxNorm: 759312 2 Tablet(s) Oral every day 021 2020 Inactive levothyroxine 50 mcg tablet RxNorm: 439975 TAKE (1) TABLET BY MOUTH DAILY 021 2020 Inactive metformin 500 mg tablet RxNorm: 817873 1 Tablet(s) Oral two times a day take with 500mg to equal 1000mg 021 2020 Inactive gabapentin 300 mg capsule RxNorm: 748363 TAKE 1 CAPSULE BY MOUTH THREE TIMES A DAY 021 2020 Inactive lisinopril 2.5 mg tablet RxNorm: 906509 TAKE 1 TABLET BY MOUTH DAILY 021 2020 Inactive gabapentin 300 mg capsule RxNorm: 183085 TAKE 1 CAPSULE BY MOUTH THREE TIMES A DAY 021 2020 Inactive Singulair 10 mg tablet RxNorm: 067360 TAKE (1) TABLET BY MOUTH DAILY 021 2020 Inactive metformin 1,000 mg tablet RxNorm: 659723 1 Tablet(s) Oral two times a day 021 2020 Inactive atorvastatin 40 mg tablet RxNorm: 243174 1 Tablet(s) Oral every day 021 2020 Inactive omeprazole 20 mg capsule,delayed release RxNorm: 150844 1 Capsule(s) Oral every evening 021 2020 Inactive famotidine 10 mg tablet RxNorm: 496874 1 Tablet(s) Oral every morning 021 2020 Inactive Alcohol Prep Pads RxNorm: 147495 USE EACH MORNING 021 2020 Inactive omeprazole 20 mg capsule,delayed release RxNorm: 574080 1 Capsule(s) Oral two times a day 021 2021 Inactive omeprazole 20 mg capsule,delayed release RxNorm: 738430 TAKE 1 CAPSULE BY MOUTH EVERY DAY 021 2021 Inactive Macrobid 100 mg capsule RxNorm: 119596 1 Capsule(s) Oral every 12 hours with food 020 2020 Inactive omeprazole 20 mg capsule,delayed release RxNorm: 034182 1 Capsule(s) Oral two times a day 2021 Inactive metformin 1,000 mg tablet RxNorm: 776824 1 Tablet(s) Oral two times a day 2020 Inactive start on September 11, 2020 metformin 500 mg tablet RxNorm: 975436 1 Tablet(s) Oral two times a day take with 500mg to equal 1000mg 2019 Inactive gabapentin 300 mg capsule RxNorm: 014607 TAKE 1 CAPSULE BY MOUTH THREE TIMES DAILY 2020 Inactive cetirizine 10 mg tablet RxNorm: 3738857 TAKE (1) TABLET BY MOUTH DAILY 2020 Inactive metformin 500 mg tablet RxNorm: 137867 1 Tablet(s) Oral two times a day 2019 Inactive loperamide 2 mg tablet RxNorm: 153405 1 Tablet(s) Oral as needed take one tablet after each loose stool, maximum of 8 tablets in 24 hours 2021 Inactive Sudafed 12 Hour 120 mg tablet,extended release RxNorm: 2590928 TAKE 1 TABLET BY MOUTH EVERY 12 HOURS NEEDED 2019 Inactive hydrochlorothiazide 25 mg tablet RxNorm: 164274 TAKE (1) TABLET BY MOUTH EVERY DAY 2019 Inactive omeprazole 20 mg capsule,delayed release RxNorm: 865828 TAKE 1 CAPSULE BY MOUTH EVERY DAY 2020 Inactive metformin 500 mg tablet RxNorm: 369309 1 Tablet(s) Oral every day 2019 Inactive True Metrix Glucose Test Strip RxNorm: 1 Test Strips Miscellaneous two times a day as needed No Stop Date Active metformin 500 mg tablet RxNorm: 634195 1 Tablet(s) Oral every day 020 2019 Inactive diclofenac sodium 75 mg tablet,delayed release RxNorm: 766313 1 Tablet(s) PO BID 2021 Inactive This refill negates all other refills of this medication Sudafed 12 Hour 120 mg tablet,extended release RxNorm: 0640818 TAKE 1 TABLET BY MOUTH EVERY 12 HOURS NEEDED 020 2019 Inactive True Metrix Glucose Test Strip RxNorm: 1 Test Strips Miscellaneous every morning 020 2019 Inactive 100/container True Metrix Glucose Test Strip RxNorm: 1 Test Strips Miscellaneous QAM 020 2019 Inactive 100/container loperamide 2 mg tablet RxNorm: 123765 1 Tablet(s) Oral as needed take one tablet after each loose stool, maximum of 8 tablets in 24 hours 020 2019 Inactive cetirizine 10 mg tablet RxNorm: 1118721 1 Tablet(s) PO daily 020 2019 Inactive loperamide 2 mg tablet RxNorm: 435957 1 Tablet(s) Oral as needed take one tablet after each loose stool, maximum of 8 tablets in 24 hours 2019 Inactive quetiapine 100 mg tablet RxNorm: 594051 1 Tablet(s) Oral every night at bedtime 2019 Inactive levothyroxine 50 mcg tablet RxNorm: 370760 1 Tablet(s) PO daily 020 2020 Inactive gabapentin 300 mg capsule RxNorm: 301533 1 Capsule(s) PO TID 2019 Inactive levothyroxine 50 mcg tablet RxNorm: 151586 1 Tablet(s) PO daily 020 2019 Inactive lisinopril 2.5 mg tablet RxNorm: 393196 1 Tablet(s) PO daily 020 2020 Inactive gabapentin 300 mg capsule RxNorm: 945021 1 Capsule(s) PO TID 020 2019 Inactive cetirizine 10 mg tablet RxNorm: 0475290 1 Tablet(s) PO daily 020 2019 Inactive Singulair 10 mg tablet RxNorm: 328616 1 Tablet(s) PO daily 04/142020 Inactive gentamicin 0.3 % eye drops RxNorm: 593428 1 Drop(s) ophthalmic (eye) four times a day 2019 Inactive gentamicin 0.3 % eye drops RxNorm: 900396 1 Drop(s) ophthalmic (eye) four times a day 2019 Inactive gentamicin 0.3 % eye drops RxNorm: 362784 1 Drop(s) ophthalmic (eye) four times a day 2019 Inactive hydrochlorothiazide 25 mg tablet RxNorm: 071317 1 Tablet(s) Oral every day 2019 Inactive Sudafed 12 Hour 120 mg tablet,extended release RxNorm: 5202206 TAKE (1) TABLET BY MOUTH EVERY 12 HOURS NEEDED 2019 Inactive loperamide 2 mg tablet RxNorm: 405311 1 Tablet(s) Oral as needed take one tablet after each loose stool, maximum of 8 tablets in 24 hours 2019 Inactive loperamide 2 mg tablet RxNorm: 015969 1 Tablet(s) Oral as needed take one tablet after each loose stool, maximum of 8 tablets in 24 hours 2019 Inactive atorvastatin 40 mg tablet RxNorm: 992086 1 Tablet(s) Oral every day 2020 Inactive quetiapine 100 mg tablet RxNorm: 131467 1 Tablet(s) Oral every night at bedtime 2019 Inactive sertraline 100 mg tablet RxNorm: 042754 1 Tablet(s) Oral 2019 Inactive omeprazole 20 mg capsule,delayed release RxNorm: 341668 1 Capsule(s) Oral every day 2019 Inactive amoxicillin 250 mg capsule RxNorm: 493794 1 Capsule(s) Oral three times a day 2019 Inactive multivitamin with iron-mineral tablet RxNorm: 1 Tablet(s) Oral every day 2021 Inactive cetirizine 10 mg tablet RxNorm: 8137540 1 Tablet(s) PO daily 2019 Inactive This refill negates all other refills of this medication. Please do not auto refill Singulair 10 mg tablet RxNorm: 203117 1 Tablet(s) PO daily 2019 Inactive This refill negates all other refills of this medication gabapentin 300 mg capsule RxNorm: 112733 1 Capsule(s) PO TID 2019 Inactive lisinopril 2.5 mg tablet RxNorm: 646259 1 Tablet(s) PO daily 2019 Inactive levothyroxine 50 mcg tablet RxNorm: 615600 1 Tablet(s) PO daily 2019 Inactive This refill negates all other refills of this medication hydrochlorothiazide 25 mg tablet RxNorm: 045713 1 Tablet(s) Oral every day 2019 Inactive fenugreek seed extract 500 mg capsule RxNorm: 1 Capsule(s) Oral three times a day 2021 Inactive Alcohol Prep Pads RxNorm: 699004 1 Patch TOP QAM 2020 Inactive loperamide 2 mg tablet RxNorm: 512986 1 Tablet(s) Oral as needed take one [...] 2019 Inactive hydrochlorothiazide 25 mg tablet RxNorm: 174540 1 Tablet(s) Oral every day 019 2019 Inactive Sudafed 12 Hour 120 mg tablet,extended release RxNorm: 5017168 1 Tablet(s) Oral every 12 hours as needed 2018 Inactive omeprazole 20 mg capsule,delayed release RxNorm: 083288 1 Capsule(s) Oral every day 019 2019 Inactive Sudafed 12 Hour 120 mg tablet,extended release RxNorm: 0248266 1 Tablet(s) Oral every 12 hours as needed 019 2018 Inactive pantoprazole 40 mg tablet,delayed release RxNorm: 131252 1 Tablet(s) Oral every day 2018 Inactive discontinue any other H2Blkr. and PPI albuterol sulfate 2.5 mg/3 mL (0.083 %) solution for nebulization RxNorm: 374644 1 Vial Inhalation every four hours as needed as needed for dyspnea 2019 Inactive 60/box. This refill negates all other refills of this medication. Please do not fill early. Please do not auto refill. Symbicort 160 mcg-4.5 mcg/actuation HFA aerosol inhaler RxNorm: 6244955 2 Puff(s) INH BID No Stop Date Active Alcohol Prep Pads RxNorm: 504255 1 Patch TOP QAM 019 2019 Inactive Ventolin HFA 90 mcg/actuation aerosol inhaler RxNorm: 848846 2 Puff(s) INH QID 2019 Inactive Please do not fill early. Please do not auto refill. This refill negates all other refills of this medication True Metrix Glucose Test Strip RxNorm: 1 Test Strips Miscellaneous QAM 019 2019 Inactive 100/container atorvastatin 40 mg tablet RxNorm: 755271 1 Tablet(s) Oral every day 019 2019 Inactive buspirone 7.5 mg tablet RxNorm: 080992 1 Tablet(s) PO BID 019 2020 Inactive This refill negates all other refills of this medication hydrochlorothiazide 12.5 mg tablet RxNorm: 632338 1 Tablet(s) PO QAM 019 2019 Inactive levmetamfetamine 50 mg nasal inhaler RxNorm: 1 Unit(s) NASAL Q3-4H Do not use more than every 3 hours or 8 times/24hours 019 2021 Inactive Please do not auto refill. This refill negates all other refills of this medication Ventolin HFA 90 mcg/actuation aerosol inhaler RxNorm: 403813 2 Puff(s) INH QID 019 2018 Inactive Please do not fill early. Please do not auto refill. This refill negates all other refills of this medication Singulair 10 mg tablet RxNorm: 639349 1 Tablet(s) PO daily 019 2019 Inactive This refill negates all other refills of this medication cetirizine 10 mg tablet RxNorm: 6331202 1 Tablet(s) PO daily 019 2019 Inactive This refill negates all other refills of this medication. Please do not auto refill levothyroxine 50 mcg tablet RxNorm: 769076 1 Tablet(s) PO daily 019 2019 Inactive This refill negates all other refills of this medication diclofenac sodium 75 mg tablet,delayed release RxNorm: 171357 1 Tablet(s) PO BID 019 2019 Inactive This refill negates all other refills of this medication ranitidine 150 mg tablet RxNorm: 189666 1 Tablet(s) PO BID 019 2018 Inactive This refill negates all other refills of this medication Calcium 600-D3 Plus (mag-zinc) 600 mg calcium-800 unit-50 mg tablet RxNorm: 1 Tablet(s) PO daily take an additonal tablet for itching. 019 2018 Inactive This refill negates all other refills of this medication albuterol sulfate 2.5 mg/3 mL (0.083 %) solution for nebulization RxNorm: 307111 1 Vial INH QID 019 2018 Inactive 60/box. This refill negates all other refills of this medication. Please do not fill early. Please do not auto refill. lisinopril 2.5 mg tablet RxNorm: 946539 1 Tablet(s) PO daily 019 2019 Inactive gabapentin 300 mg capsule RxNorm: 456120 1 Capsule(s) PO TID 019 2019 Inactive atorvastatin 20 mg tablet RxNorm: 807861 1 Tablet(s) PO QHS 2018 Inactive This refill negates all other refills of this medication TRUEplus Lancets 30 gauge RxNorm: 1 Lancets Miscellaneous QAM 2018 Inactive 100/box gabapentin 300 mg capsule RxNorm: 270853 1 Capsule(s) PO TID 019 2018 Inactive Flintstones Complete (iron) 18 mg iron chewable tablet RxNorm: 1 Tablet(s) PO daily 019 2021 Inactive This refill negates all other refills of this medication gabapentin 300 mg capsule RxNorm: 521616 1 Capsule(s) PO TID as needed 2018 Inactive True Metrix Glucose Test Strip RxNorm: 1 Test Strips Miscellaneous QA 019 2018 Inactive 100/container Alcohol Prep Pads RxNorm: 294716 1 Patch TOP QA 2018 Inactive TRUEplus Lancets 30 gauge RxNorm: 1 Lancets Miscellaneous QAM 019 2018 Inactive 100/box lisinopril 2.5 mg tablet RxNorm: 855227 1 Tablet(s) PO daily 019 2018 Inactive ranitidine 150 mg tablet RxNorm: 099344 1 Tablet(s) PO BID 019 2018 Inactive This refill negates all other refills of this medication albuterol sulfate 2.5 mg/3 mL (0.083 %) solution for nebulization RxNorm: 125315 1 Vial INH QID 019 2018 Inactive [...] this medication gabapentin 300 mg capsule RxNorm: 679585 1 Capsule(s) PO TID as needed 019 2018 Inactive atorvastatin 20 mg tablet RxNorm: 740885 1 Tablet(s) PO QHS 019 2018 Inactive This refill negates all other refills of this medication trazodone 50 mg tablet RxNorm: 237622 1 Tablet(s) PO QHS 019 2018 Inactive This refill negates all other refills of this medication Ventolin HFA 90 mcg/actuation aerosol inhaler RxNorm: 234655 2 Puff(s) INH QID 019 2018 Inactive Please do not fill early. Please do not auto refill. This refill negates all other refills of this medication Calcium 600-D3 Plus 600 mg calcium-800 unit-50 mg tablet RxNorm: 1 Tablet(s) PO daily take an additonal tablet for itching. 019 2018 Inactive This refill negates all other refills of this medication Singulair 10 mg tablet RxNorm: 394016 1 Tablet(s) PO daily 019 2018 Inactive This refill negates all other refills of this medication buspirone 7.5 mg tablet RxNorm: 975794 1 Tablet(s) PO BID 019 2018 Inactive This refill negates all other refills of this medication diclofenac sodium 75 mg tablet,delayed release RxNorm: 795782 1 Tablet(s) PO BID 019 2018 Inactive This refill negates all other refills of this medication hydrochlorothiazide 12.5 mg tablet RxNorm: 440979 1 Tablet(s) PO QAM 019 2018 Inactive metoprolol succinate ER 50 mg tablet,extended release 24 hr RxNorm: 554572 1 Tablet(s) PO daily 019 2018 Inactive This refill negates all other refills of this medication levothyroxine 50 mcg tablet RxNorm: 092369 1 Tablet(s) PO daily 019 2018 Inactive This refill negates all other refills of this medication cetirizine 10 mg tablet RxNorm: 5800221 1 Tablet(s) PO daily 019 2018 Inactive This refill negates all other refills of this medication. Please do not auto refill Flintstones Complete (iron) 18 mg iron chewable tablet RxNorm: 1 Tablet(s) PO daily 019 2018 Inactive This refill negates all other refills of this medication buspirone 7.5 mg tablet RxNorm: 559458 1 Tablet(s) PO BID 2018 Inactive cetirizine 10 mg tablet RxNorm: 6227723 1 Tablet(s) PO daily 2018 Inactive Guaiasorb DM 10 mg-100 mg/5 mL oral liquid RxNorm: 466211 10 Milliliter(s) PO As needed every 4 hr 2018 Inactive Vicks Vaporub 4.7 %-1.2 %-2.6 % topical ointment RxNorm: 8960467 1 Application TOP TID 2018 Inactive levmetamfetamine 50 mg nasal inhaler RxNorm: 1 Unit(s) NASAL Q3-4H 2017 Inactive sertraline 50 mg tablet RxNorm: 230060 1 Tablet(s) PO daily 018 2018 Inactive Please note dose trazodone 50 mg tablet RxNorm: 600444 1 Tablet(s) PO QHS 018 2018 Inactive sertraline 50 mg tablet RxNorm: 399167 1 Tablet(s) PO daily 018 2017 Inactive amoxicillin 500 mg tablet RxNorm: 838614 1 Tablet(s) PO Q12H 018 2017 Inactive albuterol sulfate 2.5 mg/3 mL (0.083 %) solution for nebulization RxNorm: 841526 1 Vial INH QID 018 2018 Inactive 60/box. Please do not fill early. Please do not auto refill. Prozac 10 mg capsule RxNorm: 078186 1 Capsule(s) PO daily 018 2017 Inactive buspirone 7.5 mg tablet RxNorm: 423703 1 Tablet(s) PO BID 018 2018 Inactive gabapentin 300 mg capsule RxNorm: 957652 1 Capsule(s) PO TID as needed 018 2018 Inactive hydrochlorothiazide 12.5 mg tablet RxNorm: 777305 1 Tablet(s) PO QAM 018 2018 Inactive ranitidine 150 mg tablet RxNorm: 879097 1 Tablet(s) PO BID 018 2018 Inactive Macrobid 100 mg capsule RxNorm: 807102 1 Capsule(s) PO Q12H 018 2017 Inactive Singulair 10 mg tablet RxNorm: 327381 1 Tablet(s) PO daily 018 2018 Inactive Ventolin HFA 90 mcg/actuation aerosol inhaler RxNorm: 9910692 2 Puff(s) INH QID 018 2018 Inactive Singulair 10 mg tablet RxNorm: 364932 1 Tablet(s) PO daily 018 2017 Inactive buspirone 7.5 mg tablet RxNorm: 773230 1 Tablet(s) PO BID 018 2017 Inactive Prozac 10 mg capsule RxNorm: 607301 1 Capsule(s) PO daily 018 2017 Inactive diclofenac sodium 75 mg tablet,delayed release RxNorm: 752200 1 Tablet(s) PO BID 018 2017 Inactive lisinopril 2.5 mg tablet RxNorm: 853191 1 Tablet(s) PO daily 018 2017 Inactive Neilmed Pediatric Sinus Rinse Refill packet RxNorm: 1 Unit Dose NASAL PRN 018 2021 Inactive metoprolol succinate ER 50 mg tablet,extended release 24 hr RxNorm: 679370 1 Tablet(s) PO daily 018 2017 Inactive levothyroxine 50 mcg tablet RxNorm: 334454 1 Tablet(s) PO daily 018 2017 Inactive TRUEplus Lancets 30 gauge RxNorm: 1 Lancets Miscellaneous QAM 018 2017 Inactive 100/box Ventolin HFA 90 mcg/actuation aerosol inhaler RxNorm: 701414 2 Puff(s) INH QID 018 2017 Inactive Aleve 220 mg capsule RxNorm: 9208128 1 Capsule(s) PO BID 018 2018 Inactive ranitidine 150 mg tablet RxNorm: 331325 1 Tablet(s) PO BID 018 2017 Inactive gabapentin 300 mg capsule RxNorm: 493073 1 Capsule(s) PO TID as needed 018 2017 Inactive atorvastatin 20 mg tablet RxNorm: 878593 1 Tablet(s) PO QHS 018 2017 Inactive True Metrix Glucose Test Strip RxNorm: 1 Test Strips Miscellaneous QAM 018 2017 Inactive 50/container Calcium 600-D3 Plus 600 mg calcium-800 unit-50 mg tablet RxNorm: 1 Tablet(s) PO daily take an additonal tablet for itching. 018 2017 Inactive hydrochlorothiazide 12.5 mg tablet RxNorm: 387595 1 Tablet(s) PO QAM 018 2017 Inactive Flintstones Complete (iron) 18 mg iron chewable tablet RxNorm: 1 Tablet(s) PO daily 018 2017 Inactive True Metrix Glucose Meter RxNorm: miscellaneous 019 2018 Inactive sertraline 50 mg tablet RxNorm: 817454 1 Tablet(s) PO daily 020 2019 Inactive loperamide 2 mg tablet RxNorm: 562502 oral 019 2018 Inactive d-mannose oral powder RxNorm: PO 018 2021 Inactive Symbicort 160 mcg-4.5 mcg/actuation HFA aerosol inhaler RxNorm: 3338040 2 Puff(s) INH BID 019 2018 Inactive [...] CPT-4: VACP Fall Risk Assessment SNOMED CT: 64543012 4 CPT-4: DFRA 01/13/2021 [place] Assessment CPT-4: DSWA 12/01 Urinalysis, dip stick CPT-4: 53359 09/24/2020 Patient Health Questionnaire CPT-4: DPHQ Electrocardiogram CPT-4: 31474 05/14/2020 Tobacco Assessment/Screening CPT-4: TCA Fall Risk Assessment SNOMED CT: 26930838 4 CPT-4: DFRA 01/01/2020 Functional Assessment CPT-4: DFA 01/01/2020 [place] Assessment CPT-4: DSWA 11/04 Patient Health Questionnaire CPT-4: DPHQ [place] Assessment CPT-4: DSWA 10/03 Hypertension CPT-4: HTN 10/17/2019 Fall Risk Assessment SNOMED CT: 97720397 4 CPT-4: DFRA 09/19/2019 Functional Assessment CPT-4: DFA 09/19/2019 Urinalysis, dip stick CPT-4: 11263 06/21/2019 Tobacco Assessment/Screening CPT-4: TCA Patient Health Questionnaire CPT-4: DPHQ AHA/REBECCA Classification Assessment CPT-4: DAHA 04/25/2019 Controlled Substance Report CPT-4: CTRSU 04/03 Urinalysis, dip stick CPT-4: 03254 03/28/2019 Urinalysis, dip stick CPT-4: 20976 03/28/2019 S7V-Fnwohselowhhpka CPT-4: 43065 Unknown C1S-Nvlnzbtkydgtkys CPT-4: 88184 Unknown V2T-Ybtpuxtsahqlcxg CPT-4: 79373 Unknown P8F-Ydakshrcjhzfgwx CPT-4: 59144 Unknown Q5Y-Vztqyytvejhtdwo CPT-4: 93655 Unknown A6I-Dwrodrzumwylmmr CPT-4: 61958 Unknown G2K-Tjvwpmpidkwjnzh CPT-4: 04155 Unknown K5B-Kqikahouroebbig CPT-4: 89484 Unknown Gynecology Referral SNOMED CT: 862435670 CPT-4: R14 Unknown Reason For Visit No Reason For Visit data Plan of Care Planned Activity Notes Codes Status Date Patient Education: Patient Medication Summary Completed 01/04/2022 Appointment: Mikey Nair WPtel: [address] [facility] 202b [id number] 12/03/2021 Appointment: Chivo Bishop WPtel: [address] [place] [address] E410 11/02/2021 Appointment: Chivo Bishop WPtel: [address] [place] [address] E410 10/07/2021 Appointment: Chivo Bishop WPtel: [address] [place] [address] ETV 09/10/2021 Appointment: Chvio Bishop WPtel: [id number] [place] [address] ETV 08/13/2021 Appointment: Chivo Bishop WPtel: [address] [place] [address] ETV 07/06/2021 Appointment: Chivo Bishop WPtel: [address] [place] [address] PHTV 06/10/2021 Appointment: Anna Culver WPtel: [address] [place] [address] ETV 06/02/2021 Appointment: Chivo Bishop WPtel: [address] [place] [address] ETV 05/20/2021 Appointment: Anna Culver WPtel: [address] [place] [address] ETV 04/28/2021 Appointment: Chivo Bishop WPtel: [address] [place] [address] ETV 04/15/2021 Appointment: Anna Culver WPtel: [address] [place] [address] E410 04/01/2021 Appointment: Anna Culver WPtel: [address] [place] [address] ETV 03/24/2021 Appointment: Anna Culver WPtel: [address] [place], [place] [address] ETV 03/13/2021 Appointment: Anna Cuvler WPtel: [address] [place] [address] E410 02/11/2021 Appointment: Chivo Bishop WPtel: [address] [place] [address] E410 01/29/2021 Appointment: Anna Culver WPtel: [address] [place] [address] [place] ETV 01/13/2021 Appointment: Anna Culver WPtel: [address] [place] [address] [place] E410 12/17/2020 Appointment: Chivo Bishop WPtel: [address] [place] [address] [place] ETV 11/28/2020 Appointment: Anna Culver WPtel: [address] [place] [address] [place] ETV 11/24/2020 Appointment: Anna Culver WPtel: [address] [place] [address] E410 10/29/2020 Appointment: Anna Culver WPtel: [address] [place] [address] E410 09/24/2020 Appointment: Anna Culver WPtel: [address] [place] [address] [place] ETV 08/26/2020 Appointment: Anna Culver WPtel: [address] [place] [address] ETV 08/19/2020 Appointment: Anna Culver WPtel: [address] [place] [address] ETV 07/22/2020 Appointment: Anna Culver WPtel: [address] [place] [address] [place] ETV 07/08/2020 Appointment: Gianna Birmingham: [address] [facility] [address] [place], [place] [id number] [place] ECHO 07/02/2020 Appointment: Anna Culver WPtel: [address] [place] [address] [place] E452 06/11/2020 Appointment: Anna Culver WPtel: [address] [place] [address] [place] E452 05/14/2020 Appointment: Anna Culver WPtel: [id number] E452 04/17/2020 Appointment: Anna Culver WPtel: [id number] [place] [address] E452 03/21/2020 Appointment: Anna Culver WPtel: [address] [place] [address] E452 02/14/2020 Appointment: Anna Culver WPtel: [address] [place] [address] E452 01/24/2020 Appointment: Anna Culver WPtel: [address] [place] [address] E452 01/01/2020 Appointment: Anna Culver WPtel: [address] [place] [address] E452 11/28/2019 Appointment: Anna Culver WPtel: [address] [place] [address] E452 10/17/2019 Appointment: Anna Culver WPtel: [address] [place] [address] E452 09/19/2019 Appointment: Sudha Hernadez WPtel: [address] [facility] [id number] E452 07/04/2019 Appointment: Sudha Hernadez WPtel: [address] [facility] [id number] E452 06/21/2019 Appointment: Charlene Oropeza WPtel: [address] [facility] [id number] E452 05/24/2019 Appointment: Mallory Delgado E452 04/27/2019 Appointment: Charlene Oropeza WPtel: [address] [facility] [id number] E452 04/25/2019 Appointment: Rasta Palafox WPtel: [address] [facility] b [id number] E452 03/28/2019 Appointment: Rasta Palafox WPtel: [address] [facility] b [id number] E452 02/14/2019 Appointment: Rasta Palafox WPtel: [address] [facility] b [id number] E452 01/31/2019 Appointment: Rasta Palafox WPtel: [address] [place] [address] [id number] E420 12/27/2018 Referral: Pending Gynecology Referral Information Referral Processed Referral: Pending Pulmonolog y Referral Information Referral Processed Referral: Pending Psychiatry Referral Information Referral Initiated Referral: Pending Respirator y Services Referral Information Referral Initiated Referral: Pending Ophthalmology Referral Information Referral Initiated Referral: [facility] WPtel: [address] [place] [address] Licensing Worker placed a call out to the patient to notify her that it has been recommended that she be seen by a urologist. Patient agreed to be seen, does not have a provider of choice and no transportation issues. Licensing Worker faxed referral and clinical notes to [facility] in [place], [place] near the patient's home. Patient [...] and prefers a provider in the [facility]. Licensing Worker placed a call out to everyone listed in the area and the only location that was able to accept the patient's insurance was [address] [id number] and spoke with Maylin. Maylin asked that the patient's referral, face sheet and visit notes be faxed to . Licensing Worker faxed over requested documents. Patient appointment confirmation letter generated and mailed to her home address. Patient to call to schedule an appointment. Processed Referral: Kathryn Neurolog y WPtel: [address] [facility] [address] [place], [place] [id number] Patient notified that it has been advised that she be seen by Neurology. Patient agreed to be seen and prefers to be seen by a provider in the [place], [place] area. Patient denies any concerns with transportation, and prefers to schedule her own appointment. Licensing Worker placed a call out to [facility] and spoke with Neeraj P: who confirmed that their office is able to accept new patients and the patient's insurance. After confirming the providers fax number, insurance underwriter sales faxed over the patient's referral, [...]
--- OUTSIDE RECORDS SUMMARY | 2023-12-07 02:20 | XMS_ITS | CCD ---
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 Signal Maintainer Name Role Phone Palomo KING, Anna Primary Care Provider Unav ailable Unavailable Chronic Care Management Unavaila ble Summary Purpose DataExchange Insurance Providers Payer name Policy type / Coverage type Covered libertarian ID Effective Begin Date Effective End Date SUKI MAYO [id number] Unknown Unknown Family history Mother Diagnosis Age [...] Unknown Disability 05/31/[address]: 382454535 Has never s moked or chewed tobacco 05/31/[address]: 853768488 Never drinks alco hol 05/31/2018 Has the patient ever used illegal drugs? Unknown Has never used illegal drugs 05/31/2018 DNR Order/ Advanced Directive Unknown Full Code 05/31/2018 Allergies, Adverse Reactions, Alerts Substance Reaction Codes Entered Date Inactivated Date Status OxyContin itch, RxNorm: 910297 01/13/2021 No Inactive Da te Active *No [...] E78. 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) dr edith therapy ICD-10: Z79.899 ICD-9: V58.69 04/25/2019 Inactive Type 2 diabetes mellitus wit hout complications ICD-10: E11.9 ICD-9: 250.00 10/03/2018 Inactive Wheezing ICD-10: R06.2 ICD-9: 786.07 08/08/2018 Inactive Abnormal urine finding ICD-10: R82.90 ICD-9: 791.9 09/24/2020 Resolved Abrasion of toe ICD-10: S90.416A ICD-9: 917.0 02/14/2020 Resolved [place] eye ICD-10: H10.029 ICD-9: 372.03 12/29/2019 Resolved [...] (4 mg/3 mL) subcutaneous pen injector RxNorm: 5951621 Take 1 Unit Dose Subcutaneous QWeek 022 2021 Inactive famotidine 20 mg tablet RxNorm: 938975 Take 1 Tablet(s) Oral every morning 2021 Inactive levothyroxine 50 mcg tablet RxNorm: 510051 Take 1 Tablet(s) Oral every day 022 2021 Inactive atorvastatin 20 mg tablet RxNorm: 864988 Take 1 Tablet(s) Oral every night at bedtime 2021 Inactive Cleocin T 1 % lotion RxNorm: 827642 Take 2 Gram(s) Topical every day 022 2021 Inactive Cleocin T 1 % lotion RxNorm: 913356 Take 2 Gram(s) Topical every day 022 2021 Inactive Ozempic 1 mg/dose (4 mg/3 mL) subcutaneous pen injector RxNorm: 8693936 Take 1 Unit Dose Subcutaneous QWeek 022 2021 Inactive Ozempic 0.25 mg or 0.5 mg (2 mg/1.5 mL) subcutaneous pen injector RxNorm: 1481201 INJECT 0.5 MGS SUBCUTANEOUSLY EVERY WEEK 2021 Inactive omeprazole 20 mg capsule,delayed release RxNorm: 594629 Take 1 Capsule(s) Oral every evening 2021 Inactive levothyroxine 50 mcg tablet RxNorm: 625832 Take 1 Tablet(s) Oral every day 2021 Inactive atorvastatin 20 mg tablet RxNorm: 360665 Take 1 Tablet(s) Oral every night at bedtime 2021 Inactive This refill negates all other refills of this medication lisinopril 2.5 mg tablet RxNorm: 957402 Take 1 Tablet(s) Oral every day 2021 Inactive gabapentin 300 mg capsule RxNorm: 399473 Take 1 Capsule(s) Oral three times a day 2021 Inactive montelukast 10 mg tablet RxNorm: 561735 Take 1 Tablet(s) Oral every day 2021 Inactive cholecalciferol (vitamin D3) 50 mcg (2,000 unit) tablet RxNorm: 001512 Take 1 Tablet(s) Oral every day 2022 Inactive Myrbetriq 50 mg tablet,extended release RxNorm: 0795080 1 Tablet(s) Oral every day No Stop Date Active Ozempic 0.25 mg or 0.5 mg (2 mg/1.5 mL) subcutaneous pen injector RxNorm: 3358973 inject 0.5 milligrams subcutaneously every week 2021 Inactive Ozempic 0.25 mg or 0.5 mg (2 mg/1.5 mL) subcutaneous pen injector RxNorm: 7816058 Take 0.5 Capsule(s) Injection once a week 2021 Inactive omeprazole 20 mg capsule,delayed release RxNorm: 039047 Take 1 Capsule(s) Oral every evening 2020 Inactive Ozempic 0.25 mg or 0.5 mg (2 mg/1.5 mL) subcutaneous pen injector RxNorm: 5545443 Take 0.25 Milligram(s) Subcutaneous once a week 021 2021 Inactive Easy Touch Alcohol Prep Pads RxNorm: 676210 USE DIRECTED EACH MORNING 021 2021 Inactive Probiotic 10 billion cell capsule RxNorm: 9584785 Take 1 Capsule(s) Oral every day 2021 Inactive levothyroxine 50 mcg tablet RxNorm: 919171 Take 1 Tablet(s) Oral every day 2020 Inactive Acid Under Ground Miner (famotidine) 20 mg tablet RxNorm: 511265 Take 1 Tablet(s) Oral every morning 2020 Inactive Heartburn Relief (famotidine) 10 mg tablet RxNorm: 257398 Take 1 Tablet(s) Oral QAM 2020 Inactive levothyroxine 50 mcg tablet RxNorm: 093950 Take 1 Tablet(s) Oral QD 2020 Inactive Singulair 10 mg tablet RxNorm: 683204 TAKE (1) TABLET BY MOUTH DAILY 2020 Inactive metformin 1,000 mg tablet RxNorm: 692729 1 Tablet(s) Oral two times a day 021 2021 Inactive lisinopril 2.5 mg tablet RxNorm: 430869 Take 1 Tablet(s) Oral every day 2020 Inactive hydrochlorothiazide 25 mg tablet RxNorm: 689836 Take 1 Tablet(s) Oral every day 021 2020 Inactive ondansetron 4 mg disintegrating tablet RxNorm: 162201 1 Tablet(s) Oral two times a day 021 2020 Inactive Sudafed 12 Hour 120 mg tablet,extended release RxNorm: 6922338 TAKE 1 TABLET BY MOUTH EVERY 12 HOURS NEEDED 2021 Inactive Heartburn Relief (famotidine) 10 mg tablet RxNorm: 245761 Take 1 Tablet(s) Oral every morning 021 2020 Inactive omeprazole 20 mg capsule,delayed release RxNorm: 224184 1 Capsule(s) Oral every evening 021 2020 Inactive sertraline 100 mg tablet RxNorm: 596421 2 Tablet(s) Oral every day 021 2020 Inactive levothyroxine 50 mcg tablet RxNorm: 761509 TAKE (1) TABLET BY MOUTH DAILY 021 2020 Inactive metformin 500 mg tablet RxNorm: 102606 1 Tablet(s) Oral two times a day take with 500mg to equal 1000mg 021 2020 Inactive gabapentin 300 mg capsule RxNorm: 699420 TAKE 1 CAPSULE BY MOUTH THREE TIMES A DAY 021 2020 Inactive lisinopril 2.5 mg tablet RxNorm: 700696 TAKE 1 TABLET BY MOUTH DAILY 021 2020 Inactive gabapentin 300 mg capsule RxNorm: 404353 TAKE 1 CAPSULE BY MOUTH THREE TIMES A DAY 021 2020 Inactive Singulair 10 mg tablet RxNorm: 351341 TAKE (1) TABLET BY MOUTH DAILY 021 2020 Inactive metformin 1,000 mg tablet RxNorm: 593070 1 Tablet(s) Oral two times a day 021 2020 Inactive atorvastatin 40 mg tablet RxNorm: 942852 1 Tablet(s) Oral every day 021 2020 Inactive omeprazole 20 mg capsule,delayed release RxNorm: 162684 1 Capsule(s) Oral every evening 021 2020 Inactive famotidine 10 mg tablet RxNorm: 028529 1 Tablet(s) Oral every morning 021 2020 Inactive Alcohol Prep Pads RxNorm: 033318 USE EACH MORNING 021 2020 Inactive omeprazole 20 mg capsule,delayed release RxNorm: 641232 1 Capsule(s) Oral two times a day 021 2021 Inactive omeprazole 20 mg capsule,delayed release RxNorm: 332508 TAKE 1 CAPSULE BY MOUTH EVERY DAY 2021 Inactive Macrobid 100 mg capsule RxNorm: 384643 1 Capsule(s) Oral every 12 hours with food 2020 Inactive omeprazole 20 mg capsule,delayed release RxNorm: 494270 1 Capsule(s) Oral two times a day 2021 Inactive metformin 1,000 mg tablet RxNorm: 762397 1 Tablet(s) Oral two times a day 2020 Inactive start on September 11, 2020 metformin 500 mg tablet RxNorm: 854022 1 Tablet(s) Oral two times a day take with 500mg to equal 1000mg 2019 Inactive gabapentin 300 mg capsule RxNorm: 103642 TAKE 1 CAPSULE BY MOUTH THREE TIMES DAILY 2020 Inactive cetirizine 10 mg tablet RxNorm: 4021453 TAKE (1) TABLET BY MOUTH DAILY 2020 Inactive metformin 500 mg tablet RxNorm: 184043 1 Tablet(s) Oral two times a day 2019 Inactive loperamide 2 mg tablet RxNorm: 835715 1 Tablet(s) Oral as needed take one tablet after each loose stool, maximum of 8 tablets in 24 hours 2021 Inactive Sudafed 12 Hour 120 mg tablet,extended release RxNorm: 9510716 TAKE 1 TABLET BY MOUTH EVERY 12 HOURS NEEDED 2019 Inactive hydrochlorothiazide 25 mg tablet RxNorm: 505532 TAKE (1) TABLET BY MOUTH EVERY DAY 2019 Inactive omeprazole 20 mg capsule,delayed release RxNorm: 568547 TAKE 1 CAPSULE BY MOUTH EVERY DAY 2020 Inactive metformin 500 mg tablet RxNorm: 357155 1 Tablet(s) Oral every day 2019 Inactive True Metrix Glucose Test Strip RxNorm: 1 Test Strips Miscellaneous two times a day as needed No Stop Date Active metformin 500 mg tablet RxNorm: 961044 1 Tablet(s) Oral every day 020 2019 Inactive diclofenac sodium 75 mg tablet,delayed release RxNorm: 678779 1 Tablet(s) PO BID 020 2021 Inactive This refill negates all other refills of this medication Sudafed 12 Hour 120 mg tablet,extended release RxNorm: 1723260 TAKE 1 TABLET BY MOUTH EVERY 12 HOURS NEEDED 020 2019 Inactive True Metrix Glucose Test Strip RxNorm: 1 Test Strips Miscellaneous every morning 020 2019 Inactive 100/container True Metrix Glucose Test Strip RxNorm: 1 Test Strips Miscellaneous QAM 020 2019 Inactive 100/container loperamide 2 mg tablet RxNorm: 788699 1 Tablet(s) Oral as needed take one tablet after each loose stool, maximum of 8 tablets in 24 hours 020 2019 Inactive cetirizine 10 mg tablet RxNorm: 1863215 1 Tablet(s) PO daily 020 2019 Inactive loperamide 2 mg tablet RxNorm: 329322 1 Tablet(s) Oral as needed take one tablet after each loose stool, maximum of 8 tablets in 24 hours 020 2019 Inactive quetiapine 100 mg tablet RxNorm: 922129 1 Tablet(s) Oral every night at bedtime 020 2019 Inactive levothyroxine 50 mcg tablet RxNorm: 678453 1 Tablet(s) PO daily 020 2020 Inactive gabapentin 300 mg capsule RxNorm: 761820 1 Capsule(s) PO TID 020 2019 Inactive levothyroxine 50 mcg tablet RxNorm: 894123 1 Tablet(s) PO daily 020 2019 Inactive lisinopril 2.5 mg tablet RxNorm: 221870 1 Tablet(s) PO daily 020 2020 Inactive gabapentin 300 mg capsule RxNorm: 648474 1 Capsule(s) PO TID 2019 Inactive cetirizine 10 mg tablet RxNorm: 1101903 1 Tablet(s) PO daily 2019 Inactive Singulair 10 mg tablet RxNorm: 286325 1 Tablet(s) PO daily 2020 Inactive gentamicin 0.3 % eye drops RxNorm: 872936 1 Drop(s) ophthalmic (eye) four times a day 2019 Inactive gentamicin 0.3 % eye drops RxNorm: 460304 1 Drop(s) ophthalmic (eye) four times a day 2019 Inactive gentamicin 0.3 % eye drops RxNorm: 397312 1 Drop(s) ophthalmic (eye) four times a day 2019 Inactive hydrochlorothiazide 25 mg tablet RxNorm: 635022 1 Tablet(s) Oral every day 2019 Inactive Sudafed 12 Hour 120 mg tablet,extended release RxNorm: 0982141 TAKE (1) TABLET BY MOUTH EVERY 12 HOURS NEEDED 2019 Inactive loperamide 2 mg tablet RxNorm: 969843 1 Tablet(s) Oral as needed take one tablet after each loose stool, maximum of 8 tablets in 24 hours 2019 Inactive loperamide 2 mg tablet RxNorm: 811729 1 Tablet(s) Oral as needed take one tablet after each loose stool, maximum of 8 tablets in 24 hours 2019 Inactive atorvastatin 40 mg tablet RxNorm: 449009 1 Tablet(s) Oral every day 2020 Inactive quetiapine 100 mg tablet RxNorm: 842170 1 Tablet(s) Oral every night at bedtime 2019 Inactive sertraline 100 mg tablet RxNorm: 382787 1 Tablet(s) Oral 020 2019 Inactive omeprazole 20 mg capsule,delayed release RxNorm: 789275 1 Capsule(s) Oral every day 2019 Inactive amoxicillin 250 mg capsule RxNorm: 725373 1 Capsule(s) Oral three times a day 020 2019 Inactive multivitamin with iron-mineral tablet RxNorm: 1 Tablet(s) Oral every day 020 2021 Inactive cetirizine 10 mg tablet RxNorm: 6658969 1 Tablet(s) PO daily 2019 Inactive This refill negates all other refills of this medication. Please do not auto refill Singulair 10 mg tablet RxNorm: 758133 1 Tablet(s) PO daily 020 2019 Inactive This refill negates all other refills of this medication gabapentin 300 mg capsule RxNorm: 171269 1 Capsule(s) PO TID 2019 Inactive lisinopril 2.5 mg tablet RxNorm: 425688 1 Tablet(s) PO daily 2019 Inactive levothyroxine 50 mcg tablet RxNorm: 227541 1 Tablet(s) PO daily 2019 Inactive This refill negates all other refills of this medication hydrochlorothiazide 25 mg tablet RxNorm: 322798 1 Tablet(s) Oral every day 2019 Inactive fenugreek seed extract 500 mg capsule RxNorm: 1 Capsule(s) Oral three times a day 020 2021 Inactive Alcohol Prep Pads RxNorm: 984861 1 Patch TOP QAM 020 2020 Inactive loperamide 2 mg tablet RxNorm: 083897 1 Tablet(s) Oral as needed take one [...] 2019 Inactive hydrochlorothiazide 25 mg tablet RxNorm: 466672 1 Tablet(s) Oral every day 019 2019 Inactive Sudafed 12 Hour 120 mg tablet,extended release RxNorm: 3753418 1 Tablet(s) Oral every 12 hours as needed 019 2018 Inactive omeprazole 20 mg capsule,delayed release RxNorm: 633533 1 Capsule(s) Oral every day 019 2019 Inactive Sudafed 12 Hour 120 mg tablet,extended release RxNorm: 8088749 1 Tablet(s) Oral every 12 hours as needed 019 2018 Inactive pantoprazole 40 mg tablet,delayed release RxNorm: 150589 1 Tablet(s) Oral every day 2018 Inactive discontinue any other H2Blkr. and PPI albuterol sulfate 2.5 mg/3 mL (0.083 %) solution for nebulization RxNorm: 060764 1 Vial Inhalation every four hours as needed as needed for dyspnea 2019 Inactive 60/box. This refill negates all other refills of this medication. Please do not fill early. Please do not auto refill. Symbicort 160 mcg-4.5 mcg/actuation HFA aerosol inhaler RxNorm: 9036144 2 Puff(s) INH BID 019 No Stop Date Active Alcohol Prep Pads RxNorm: 257796 1 Patch TOP QAM 019 2019 Inactive Ventolin HFA 90 mcg/actuation aerosol inhaler RxNorm: 639094 2 Puff(s) INH QID 019 2019 Inactive Please do not fill early. Please do not auto refill. This refill negates all other refills of this medication True Metrix Glucose Test Strip RxNorm: 1 Test Strips Miscellaneous QAM 019 2019 Inactive 100/container atorvastatin 40 mg tablet RxNorm: 134849 1 Tablet(s) Oral every day 019 2019 Inactive buspirone 7.5 mg tablet RxNorm: 799820 1 Tablet(s) PO BID 019 2020 Inactive This refill negates all other refills of this medication hydrochlorothiazide 12.5 mg tablet RxNorm: 977797 1 Tablet(s) PO QAM 019 2019 Inactive levmetamfetamine 50 mg nasal inhaler RxNorm: 1 Unit(s) NASAL Q3-4H Do not use more than every 3 hours or 8 times/24hours 019 2021 Inactive Please do not auto refill. This refill negates all other refills of this medication Ventolin HFA 90 mcg/actuation aerosol inhaler RxNorm: 455906 2 Puff(s) INH QID 2018 Inactive Please do not fill early. Please do not auto refill. This refill negates all other refills of this medication Singulair 10 mg tablet RxNorm: 993473 1 Tablet(s) PO daily 019 2019 Inactive This refill negates all other refills of this medication cetirizine 10 mg tablet RxNorm: 8630542 1 Tablet(s) PO daily 019 2019 Inactive This refill negates all other refills of this medication. Please do not auto refill levothyroxine 50 mcg tablet RxNorm: 795344 1 Tablet(s) PO daily 019 2019 Inactive This refill negates all other refills of this medication diclofenac sodium 75 mg tablet,delayed release RxNorm: 676884 1 Tablet(s) PO BID 019 2019 Inactive This refill negates all other refills of this medication ranitidine 150 mg tablet RxNorm: 302403 1 Tablet(s) PO BID 019 2018 Inactive This refill negates all other refills of this medication Calcium 600-D3 Plus (mag-zinc) 600 mg calcium-800 unit-50 mg tablet RxNorm: 1 Tablet(s) PO daily take an additonal tablet for itching. 2018 Inactive This refill negates all other refills of this medication albuterol sulfate 2.5 mg/3 mL (0.083 %) solution for nebulization RxNorm: 796037 1 Vial INH QID 019 2018 Inactive 60/box. This refill negates all other refills of this medication. Please do not fill early. Please do not auto refill. lisinopril 2.5 mg tablet RxNorm: 931945 1 Tablet(s) PO daily 019 2019 Inactive gabapentin 300 mg capsule RxNorm: 144904 1 Capsule(s) PO TID 019 2019 Inactive atorvastatin 20 mg tablet RxNorm: 488537 1 Tablet(s) PO QHS 2018 Inactive This refill negates all other refills of this medication TRUEplus Lancets 30 gauge RxNorm: 1 Lancets Miscellaneous QAM 019 2018 Inactive 100/box gabapentin 300 mg capsule RxNorm: 633927 1 Capsule(s) PO TID 2018 Inactive Flintstones Complete (iron) 18 mg iron chewable tablet RxNorm: 1 Tablet(s) PO daily 019 2021 Inactive This refill negates all other refills of this medication gabapentin 300 mg capsule RxNorm: 763780 1 Capsule(s) PO TID as needed 019 2018 Inactive True Metrix Glucose Test Strip RxNorm: 1 Test Strips Miscellaneous QAM 019 2018 Inactive 100/container Alcohol Prep Pads RxNorm: 897372 1 Patch TOP QAM 2018 Inactive TRUEplus Lancets 30 gauge RxNorm: 1 Lancets Miscellaneous QAM 019 2018 Inactive 100/box lisinopril 2.5 mg tablet RxNorm: 528508 1 Tablet(s) PO daily 019 2018 Inactive ranitidine 150 mg tablet RxNorm: 970347 1 Tablet(s) PO BID 019 2018 Inactive This refill negates all other refills of this medication albuterol sulfate 2.5 mg/3 mL (0.083 %) solution for nebulization RxNorm: 249143 1 Vial INH QID 019 2018 Inactive [...] this medication gabapentin 300 mg capsule RxNorm: 683486 1 Capsule(s) PO TID as needed 019 2018 Inactive atorvastatin 20 mg tablet RxNorm: 924176 1 Tablet(s) PO QHS 019 2018 Inactive This refill negates all other refills of this medication trazodone 50 mg tablet RxNorm: 165232 1 Tablet(s) PO QHS 019 2018 Inactive This refill negates all other refills of this medication Ventolin HFA 90 mcg/actuation aerosol inhaler RxNorm: 128062 2 Puff(s) INH QID 019 2018 Inactive Please do not fill early. Please do not auto refill. This refill negates all other refills of this medication Calcium 600-D3 Plus 600 mg calcium-800 unit-50 mg tablet RxNorm: 1 Tablet(s) PO daily take an additonal tablet for itching. 019 2018 Inactive This refill negates all other refills of this medication Singulair 10 mg tablet RxNorm: 334142 1 Tablet(s) PO daily 019 2018 Inactive This refill negates all other refills of this medication buspirone 7.5 mg tablet RxNorm: 604733 1 Tablet(s) PO BID 019 2018 Inactive This refill negates all other refills of this medication diclofenac sodium 75 mg tablet,delayed release RxNorm: 267175 1 Tablet(s) PO BID 019 2018 Inactive This refill negates all other refills of this medication hydrochlorothiazide 12.5 mg tablet RxNorm: 190390 1 Tablet(s) PO QAM 019 2018 Inactive metoprolol succinate ER 50 mg tablet,extended release 24 hr RxNorm: 037180 1 Tablet(s) PO daily 019 2018 Inactive This refill negates all other refills of this medication levothyroxine 50 mcg tablet RxNorm: 566530 1 Tablet(s) PO daily 019 2018 Inactive This refill negates all other refills of this medication cetirizine 10 mg tablet RxNorm: 9580914 1 Tablet(s) PO daily 019 2018 Inactive This refill negates all other refills of this medication. Please do not auto refill Flintstones Complete (iron) 18 mg iron chewable tablet RxNorm: 1 Tablet(s) PO daily 019 2018 Inactive This refill negates all other refills of this medication buspirone 7.5 mg tablet RxNorm: 957446 1 Tablet(s) PO BID 2018 Inactive cetirizine 10 mg tablet RxNorm: 3271566 1 Tablet(s) PO daily 2018 Inactive Guaiasorb DM 10 mg-100 mg/5 mL oral liquid RxNorm: 909926 10 Milliliter(s) PO As needed every 4 hr 2018 Inactive Vicks Vaporub 4.7 %-1.2 %-2.6 % topical ointment RxNorm: 2386828 1 Application TOP TID 2018 Inactive levmetamfetamine 50 mg nasal inhaler RxNorm: 1 Unit(s) NASAL Q3-4H 2017 Inactive sertraline 50 mg tablet RxNorm: 187440 1 Tablet(s) PO daily 018 2018 Inactive Please note dose trazodone 50 mg tablet RxNorm: 895473 1 Tablet(s) PO QHS 018 2018 Inactive sertraline 50 mg tablet RxNorm: 477553 1 Tablet(s) PO daily 018 2017 Inactive amoxicillin 500 mg tablet RxNorm: 139073 1 Tablet(s) PO Q12H 018 2017 Inactive albuterol sulfate 2.5 mg/3 mL (0.083 %) solution for nebulization RxNorm: 341159 1 Vial INH QID 2018 Inactive 60/box. Please do not fill early. Please do not auto refill. Prozac 10 mg capsule RxNorm: 585088 1 Capsule(s) PO daily 018 2017 Inactive buspirone 7.5 mg tablet RxNorm: 194312 1 Tablet(s) PO BID 018 2018 Inactive gabapentin 300 mg capsule RxNorm: 383440 1 Capsule(s) PO TID as needed 2018 Inactive hydrochlorothiazide 12.5 mg tablet RxNorm: 913337 1 Tablet(s) PO QAM 018 2018 Inactive ranitidine 150 mg tablet RxNorm: 432171 1 Tablet(s) PO BID 2018 Inactive Macrobid 100 mg capsule RxNorm: 608421 1 Capsule(s) PO Q12H 018 2017 Inactive Singulair 10 mg tablet RxNorm: 173556 1 Tablet(s) PO daily 018 2018 Inactive Ventolin HFA 90 mcg/actuation aerosol inhaler RxNorm: 2024911 2 Puff(s) INH QID 018 2018 Inactive Singulair 10 mg tablet RxNorm: 536027 1 Tablet(s) PO daily 018 2017 Inactive buspirone 7.5 mg tablet RxNorm: 191624 1 Tablet(s) PO BID 018 2017 Inactive Prozac 10 mg capsule RxNorm: 540632 1 Capsule(s) PO daily 018 2017 Inactive diclofenac sodium 75 mg tablet,delayed release RxNorm: 118046 1 Tablet(s) PO BID 018 2017 Inactive lisinopril 2.5 mg tablet RxNorm: 909209 1 Tablet(s) PO daily 018 2017 Inactive Neilmed Pediatric Sinus Rinse Refill packet RxNorm: 1 Unit Dose NASAL PRN 018 2021 Inactive metoprolol succinate ER 50 mg tablet,extended release 24 hr RxNorm: 406562 1 Tablet(s) PO daily 018 2017 Inactive levothyroxine 50 mcg tablet RxNorm: 548164 1 Tablet(s) PO daily 018 2017 Inactive TRUEplus Lancets 30 gauge RxNorm: 1 Lancets Miscellaneous QAM 018 2017 Inactive 100/box Ventolin HFA 90 mcg/actuation aerosol inhaler RxNorm: 365885 2 Puff(s) INH QID 018 2017 Inactive Aleve 220 mg capsule RxNorm: 2732988 1 Capsule(s) PO BID 018 2018 Inactive ranitidine 150 mg tablet RxNorm: 423914 1 Tablet(s) PO BID 018 2017 Inactive gabapentin 300 mg capsule RxNorm: 346386 1 Capsule(s) PO TID as needed 018 2017 Inactive atorvastatin 20 mg tablet RxNorm: 082646 1 Tablet(s) PO QHS 018 2017 Inactive True Metrix Glucose Test Strip RxNorm: 1 Test Strips Miscellaneous QAM 018 2017 Inactive 50/container Calcium 600-D3 Plus 600 mg calcium-800 unit-50 mg tablet RxNorm: 1 Tablet(s) PO daily take an additonal tablet for itching. 018 2017 Inactive hydrochlorothiazide 12.5 mg tablet RxNorm: 161413 1 Tablet(s) PO QAM 018 2017 Inactive Flintstones Complete (iron) 18 mg iron chewable tablet RxNorm: 1 Tablet(s) PO daily 018 2017 Inactive True Metrix Glucose Meter RxNorm: miscellaneous 019 2018 Inactive sertraline 50 mg tablet RxNorm: 715348 1 Tablet(s) PO daily 020 2019 Inactive loperamide 2 mg tablet RxNorm: 628311 oral 019 2018 Inactive d-mannose oral powder RxNorm: PO 018 2021 Inactive Symbicort 160 mcg-4.5 mcg/actuation HFA aerosol inhaler RxNorm: 4730252 2 Puff(s) INH BID 2018 Inactive Medication Administered No Medication Administered data Procedures Procedure Codes Date Strawberry Fany Assessment CPT-4: DSWA 04/02 Patient Health [...] CPT-4: VACP Fall Risk Assessment SNOMED CT: 71559351 4 CPT-4: DFRA 01/13/2021 Strawberry Fany Assessment CPT-4: DSWA 12/01 Urinalysis, dip stick CPT-4: 30599 09/24/2020 Patient Health Questionnaire CPT-4: DPHQ Electrocardiogram CPT-4: 48030 05/14/2020 Tobacco Assessment/Screening CPT-4: TCA Fall Risk Assessment SNOMED CT: 59647820 4 CPT-4: DFRA 01/01/2020 Functional Assessment CPT-4: DFA 01/01/2020 Strawberry Fany Assessment CPT-4: DSWA 11/04 Patient Health Questionnaire CPT-4: DPHQ [place]rawberry Fany Assessment CPT-4: DSWA 10/03 Hypertension CPT-4: HTN 10/17/2019 Fall Risk Assessment SNOMED CT: 07670012 4 CPT-4: DFRA 09/19/2019 Functional Assessment CPT-4: DFA 09/19/2019 Urinalysis, dip stick CPT-4: 13052 06/21/2019 Tobacco Assessment/Screening CPT-4: TCA Patient Health Questionnaire CPT-4: DPHQ AHA/REBECCA Classification Assessment CPT-4: DAHA 04/25/2019 Controlled Substance Report CPT-4: CTRSU 04/03 Urinalysis, dip stick CPT-4: 47289 03/28/2019 Urinalysis, dip stick CPT-4: 65294 03/28/2019 U2H-Kunglqxkdzhpnyi CPT-4: 03007 Unknown Y1X-Hyaqgbaqhamrpmk CPT-4: 69568 Unknown G0F-Oefyocrjtfhcuwv CPT-4: 55866 Unknown A7F-Dyrjllpchxsjnry CPT-4: 14845 Unknown M2S-Qzoluicnwtyvbux CPT-4: 39635 Unknown I2M-Rvjuhpzvlmjihmj CPT-4: 02342 Unknown Y4D-Olexaybjwbrxuqh CPT-4: 95747 Unknown M4T-Hlaupgqlykwlkqh CPT-4: 83963 Unknown U6U-Pwydwieqwvsasqp CPT-4: 72687 Unknown Gynecology Referral SNOMED CT: 938036186 CPT-4: R14 Unknown Reason For Visit No Reason For Visit data Plan of Care Planned Activity Notes Codes Status Date Referral: Pending Gynecology Referral Information Referral Processed Referral: Pending Pulmonolog y Referral Information Referral Processed Referral: Pending Psychiatry Referral Information Referral Initiated Referral: Pending Respirator y Services Referral Information Referral Initiated Referral: Pending Ophthalmol ogy Referral Information Referral Initiated Referral: [facility] WPtel: [address] [id number] [place] [facility] Tube Bender placed a call out to the patient to notify her that it has been recommended that she be seen by 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 Patient agreed to be seen, does not have a provider of choice and no transportation issues. [employer] [facility] faxed referral and clinical notes to [facility] in [place], [place] near the patient's home. Patient to [...] seen and prefers a provider in the [place] or [place] area. [employer] T[employer] Bender placed a call out to everyone listed in the area and the only location that was able to accept the patient's insurance was [address] [id number] and spoke with Maylin. Maylin asked that the patient's referral, face sheet and visit notes be faxed to . [employer] faxed over requested documents. Patient appointment confirmation letter generated and mailed to her home address. Patient to call to schedule an appointment. Processed Referral: [facility] W[facility]: [address] [facility] [address] [place], [place] [id number] Patient notified that it has been advised that she be seen by Neurology. Patient agreed to be seen and prefers to be seen by a provider in the [place], [place] area. Patient denies any concerns with transportation, and prefers to schedule her own appointment. [employer] placed a call out to [facility] [...]
--- OUTSIDE RECORDS SUMMARY | 2023-12-07 02:20 | XMS_ITS | CCD ---
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 Unknown Has never used illegal drugs 05/31/2018 DNR Order/ Advanced Directive Unknown Full Code 05/31/2018 Allergies, Adverse Reactions, Alerts Substance Reaction Codes Entered Date Inactivated Date Status OxyContin itch, RxNorm: 918183 01/13/2021 No Inactive Da te Active *No [...] E78. 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 ICD-10: Z79.899 ICD-9: V58.69 04/25/2019 Inactive Type 2 diabetes mellitus wit hout complications ICD-10: E11.9 ICD-9: 250.00 10/03/2018 Inactive Wheezing ICD-10: R06.2 ICD-9: 786.07 08/08/2018 Inactive Abnormal urine finding ICD-10: R82.90 ICD-9: 791.9 09/24/2020 Resolved Abrasion of toe ICD-10: S90.416A ICD-9: 917.0 02/14/2020 Resolved [place] eye ICD-10: H10.029 ICD-9: 372.03 12/29/2019 Resolved [...] Fill Instructions lisinopril 2.5 mg tablet RxNorm: 675960 Take 1 Tablet(s) Oral every day 2021 Inactive lisinopril 2.5 mg tablet RxNorm: 447413 Take 1 Tablet(s) Oral every day 022 2022 Inactive hydrochlorothiazide 25 mg tablet RxNorm: 412491 Take 1 Tablet(s) Oral every day 022 2021 Inactive Ozempic 1 mg/dose (4 mg/3 mL) subcutaneous pen injector RxNorm: 5124696 Take 1 Unit Dose Subcutaneous QWeek 2021 Inactive famotidine 20 mg tablet RxNorm: 712671 Take 1 Tablet(s) Oral every morning 2021 Inactive levothyroxine 50 mcg tablet RxNorm: 787237 Take 1 Tablet(s) Oral every day 022 2021 Inactive atorvastatin 20 mg tablet RxNorm: 884690 Take 1 Tablet(s) Oral every night at bedtime 2021 Inactive Cleocin T 1 % lotion RxNorm: 308163 Take 2 Gram(s) Topical every day 022 2021 Inactive Cleocin T 1 % lotion RxNorm: 509626 Take 2 Gram(s) Topical every day 2021 Inactive Ozempic 1 mg/dose (4 mg/3 mL) subcutaneous pen injector RxNorm: 6013489 Take 1 Unit Dose Subcutaneous QWeek 022 2021 Inactive Ozempic 0.25 mg or 0.5 mg (2 mg/1.5 mL) subcutaneous pen injector RxNorm: 7517594 INJECT 0.5 MGS SUBCUTANEOUSLY EVERY WEEK 2021 Inactive omeprazole 20 mg capsule,delayed release RxNorm: 186036 Take 1 Capsule(s) Oral every evening 2021 Inactive levothyroxine 50 mcg tablet RxNorm: 249618 Take 1 Tablet(s) Oral every day 2021 Inactive atorvastatin 20 mg tablet RxNorm: 536294 Take 1 Tablet(s) Oral every night at bedtime 2021 Inactive This refill negates all other refills of this medication lisinopril 2.5 mg tablet RxNorm: 025546 Take 1 Tablet(s) Oral every day 2021 Inactive gabapentin 300 mg capsule RxNorm: 034365 Take 1 Capsule(s) Oral three times a day 022 2021 Inactive montelukast 10 mg tablet RxNorm: 720273 Take 1 Tablet(s) Oral every day 2021 Inactive cholecalciferol (vitamin D3) 50 mcg (2,000 unit) tablet RxNorm: 995152 Take 1 Tablet(s) Oral every day 022 2022 Inactive Myrbetriq 50 mg tablet,extended release RxNorm: 6315016 1 Tablet(s) Oral every day 022 No Stop Date Active Ozempic 0.25 mg or 0.5 mg (2 mg/1.5 mL) subcutaneous pen injector RxNorm: 2091230 inject 0.5 milligrams subcutaneously every week 2021 Inactive Ozempic 0.25 mg or 0.5 mg (2 mg/1.5 mL) subcutaneous pen injector RxNorm: 1841121 Take 0.5 Capsule(s) Injection once a week 2021 Inactive omeprazole 20 mg capsule,delayed release RxNorm: 352269 Take 1 Capsule(s) Oral every evening 2020 Inactive Ozempic 0.25 mg or 0.5 mg (2 mg/1.5 mL) subcutaneous pen injector RxNorm: 3509897 Take 0.25 Milligram(s) Subcutaneous once a week 2021 Inactive Easy Touch Alcohol Prep Pads RxNorm: 503058 USE DIRECTED EACH MORNING 2021 Inactive Probiotic 10 billion cell capsule RxNorm: 9812627 Take 1 Capsule(s) Oral every day 2021 Inactive levothyroxine 50 mcg tablet RxNorm: 983134 Take 1 Tablet(s) Oral every day 2020 Inactive 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 (famotidine) 20 mg tablet RxNorm: 026989 Take 1 Tablet(s) Oral every morning 2020 Inactive Heartburn Relief (famotidine) 10 mg tablet RxNorm: 061481 Take 1 Tablet(s) Oral QAM 2020 Inactive levothyroxine 50 mcg tablet RxNorm: 747969 Take 1 Tablet(s) Oral QD 2020 Inactive Singulair 10 mg tablet RxNorm: 384445 TAKE (1) TABLET BY MOUTH DAILY 2020 Inactive metformin 1,000 mg tablet RxNorm: 773966 1 Tablet(s) Oral two times a day 2021 Inactive lisinopril 2.5 mg tablet RxNorm: 621295 Take 1 Tablet(s) Oral every day 021 2020 Inactive hydrochlorothiazide 25 mg tablet RxNorm: 479213 Take 1 Tablet(s) Oral every day 021 2020 Inactive ondansetron 4 mg disintegrating tablet RxNorm: 333622 1 Tablet(s) Oral two times a day 021 2020 Inactive Sudafed 12 Hour 120 mg tablet,extended release RxNorm: 3572338 TAKE 1 TABLET BY MOUTH EVERY 12 HOURS NEEDED 021 2021 Inactive Heartburn Relief (famotidine) 10 mg tablet RxNorm: 520231 Take 1 Tablet(s) Oral every morning 021 2020 Inactive omeprazole 20 mg capsule,delayed release RxNorm: 371118 1 Capsule(s) Oral every evening 021 2020 Inactive sertraline 100 mg tablet RxNorm: 333359 2 Tablet(s) Oral every day 021 2020 Inactive levothyroxine 50 mcg tablet RxNorm: 355840 TAKE (1) TABLET BY MOUTH DAILY 021 2020 Inactive metformin 500 mg tablet RxNorm: 168470 1 Tablet(s) Oral two times a day take with 500mg to equal 1000mg 021 2020 Inactive gabapentin 300 mg capsule RxNorm: 537987 TAKE 1 CAPSULE BY MOUTH THREE TIMES A DAY 021 2020 Inactive lisinopril 2.5 mg tablet RxNorm: 813539 TAKE 1 TABLET BY MOUTH DAILY 021 2020 Inactive gabapentin 300 mg capsule RxNorm: 970121 TAKE 1 CAPSULE BY MOUTH THREE TIMES A DAY 021 2020 Inactive Singulair 10 mg tablet RxNorm: 660227 TAKE (1) TABLET BY MOUTH DAILY 021 2020 Inactive metformin 1,000 mg tablet RxNorm: 337904 1 Tablet(s) Oral two times a day 021 2020 Inactive atorvastatin 40 mg tablet RxNorm: 653471 1 Tablet(s) Oral every day 021 2020 Inactive omeprazole 20 mg capsule,delayed release RxNorm: 353539 1 Capsule(s) Oral every evening 021 2020 Inactive famotidine 10 mg tablet RxNorm: 648767 1 Tablet(s) Oral every morning 2020 Inactive Alcohol Prep Pads RxNorm: 872712 USE EACH MORNING 2020 Inactive omeprazole 20 mg capsule,delayed release RxNorm: 047033 1 Capsule(s) Oral two times a day 2021 Inactive omeprazole 20 mg capsule,delayed release RxNorm: 389796 TAKE 1 CAPSULE BY MOUTH EVERY DAY 2021 Inactive Macrobid 100 mg capsule RxNorm: 640830 1 Capsule(s) Oral every 12 hours with food 2020 Inactive omeprazole 20 mg capsule,delayed release RxNorm: 118365 1 Capsule(s) Oral two times a day 2021 Inactive metformin 1,000 mg tablet RxNorm: 225364 1 Tablet(s) Oral two times a day 2020 Inactive start on September 11, 2020 metformin 500 mg tablet RxNorm: 958123 1 Tablet(s) Oral two times a day take with 500mg to equal 1000mg 2019 Inactive gabapentin 300 mg capsule RxNorm: 580304 TAKE 1 CAPSULE BY MOUTH THREE TIMES DAILY 2020 Inactive cetirizine 10 mg tablet RxNorm: 0372870 TAKE (1) TABLET BY MOUTH DAILY 2020 Inactive metformin 500 mg tablet RxNorm: 461373 1 Tablet(s) Oral two times a day 2019 Inactive loperamide 2 mg tablet RxNorm: 427364 1 Tablet(s) Oral as needed take one tablet after each loose stool, maximum of 8 tablets in 24 hours 2021 Inactive Sudafed 12 Hour 120 mg tablet,extended release RxNorm: 8985445 TAKE 1 TABLET BY MOUTH EVERY 12 HOURS NEEDED 2019 Inactive hydrochlorothiazide 25 mg tablet RxNorm: 508268 TAKE (1) TABLET BY MOUTH EVERY DAY 2019 Inactive omeprazole 20 mg capsule,delayed release RxNorm: 820469 TAKE 1 CAPSULE BY MOUTH EVERY DAY 020 2020 Inactive metformin 500 mg tablet RxNorm: 909792 1 Tablet(s) Oral every day 020 2019 Inactive True Metrix Glucose Test Strip RxNorm: 1 Test Strips Miscellaneous two times a day as needed No Stop Date Active metformin 500 mg tablet RxNorm: 183714 1 Tablet(s) Oral every day 020 2019 Inactive diclofenac sodium 75 mg tablet,delayed release RxNorm: 624745 1 Tablet(s) PO BID 2021 Inactive This refill negates all other refills of this medication Sudafed 12 Hour 120 mg tablet,extended release RxNorm: 8412356 TAKE 1 TABLET BY MOUTH EVERY 12 HOURS NEEDED 020 2019 Inactive True Metrix Glucose Test Strip RxNorm: 1 Test Strips Miscellaneous every morning 020 2019 Inactive 100/container True Metrix Glucose Test Strip RxNorm: 1 Test Strips Miscellaneous QA 020 2019 Inactive 100/container loperamide 2 mg tablet RxNorm: 664486 1 Tablet(s) Oral as needed take one tablet after each loose stool, maximum of 8 tablets in 24 hours 020 2019 Inactive cetirizine 10 mg tablet RxNorm: 2428593 1 Tablet(s) PO daily 020 2019 Inactive loperamide 2 mg tablet RxNorm: 926297 1 Tablet(s) Oral as needed take one tablet after each loose stool, maximum of 8 tablets in 24 hours 020 2019 Inactive quetiapine 100 mg tablet RxNorm: 403709 1 Tablet(s) Oral every night at bedtime 020 2019 Inactive levothyroxine 50 mcg tablet RxNorm: 499519 1 Tablet(s) PO daily 020 2020 Inactive gabapentin 300 mg capsule RxNorm: 661124 1 Capsule(s) PO TID 2019 Inactive levothyroxine 50 mcg tablet RxNorm: 499017 1 Tablet(s) PO daily 2019 Inactive lisinopril 2.5 mg tablet RxNorm: 811773 1 Tablet(s) PO daily 2020 Inactive gabapentin 300 mg capsule RxNorm: 837845 1 Capsule(s) PO TID 2019 Inactive cetirizine 10 mg tablet RxNorm: 8193261 1 Tablet(s) PO daily 2019 Inactive Singulair 10 mg tablet RxNorm: 354589 1 Tablet(s) PO daily 2020 Inactive gentamicin 0.3 % eye drops RxNorm: 330925 1 Drop(s) ophthalmic (eye) four times a day 2019 Inactive gentamicin 0.3 % eye drops RxNorm: 697259 1 Drop(s) ophthalmic (eye) four times a day 2019 Inactive gentamicin 0.3 % eye drops RxNorm: 748292 1 Drop(s) ophthalmic (eye) four times a day 2019 Inactive hydrochlorothiazide 25 mg tablet RxNorm: 071584 1 Tablet(s) Oral every day 2019 Inactive Sudafed 12 Hour 120 mg tablet,extended release RxNorm: 6650264 TAKE (1) TABLET BY MOUTH EVERY 12 HOURS NEEDED 2019 Inactive loperamide 2 mg tablet RxNorm: 118843 1 Tablet(s) Oral as needed take one tablet after each loose stool, maximum of 8 tablets in 24 hours 2019 Inactive loperamide 2 mg tablet RxNorm: 628362 1 Tablet(s) Oral as needed take one tablet after each loose stool, maximum of 8 tablets in 24 hours 2019 Inactive atorvastatin 40 mg tablet RxNorm: 133240 1 Tablet(s) Oral every day 2020 Inactive quetiapine 100 mg tablet RxNorm: 081729 1 Tablet(s) Oral every night at bedtime 2019 Inactive sertraline 100 mg tablet RxNorm: 626162 1 Tablet(s) Oral 020 2019 Inactive omeprazole 20 mg capsule,delayed release RxNorm: 674616 1 Capsule(s) Oral every day 2019 Inactive amoxicillin 250 mg capsule RxNorm: 453288 1 Capsule(s) Oral three times a day 2019 Inactive multivitamin with iron-mineral tablet RxNorm: 1 Tablet(s) Oral every day 2021 Inactive cetirizine 10 mg tablet RxNorm: 8663875 1 Tablet(s) PO daily 2019 Inactive This refill negates all other refills of this medication. Please do not auto refill Singulair 10 mg tablet RxNorm: 729910 1 Tablet(s) PO daily 2019 Inactive This refill negates all other refills of this medication gabapentin 300 mg capsule RxNorm: 382077 1 Capsule(s) PO TID 2019 Inactive lisinopril 2.5 mg tablet RxNorm: 820939 1 Tablet(s) PO daily 2019 Inactive levothyroxine 50 mcg tablet RxNorm: 427197 1 Tablet(s) PO daily 2019 Inactive This refill negates all other refills of this medication hydrochlorothiazide 25 mg tablet RxNorm: 672987 1 Tablet(s) Oral every day 2019 Inactive fenugreek seed extract 500 mg capsule RxNorm: 1 Capsule(s) Oral three times a day 020 2021 Inactive Alcohol Prep Pads RxNorm: 883571 1 Patch TOP QAM 020 2020 Inactive loperamide 2 mg tablet RxNorm: 298403 1 Tablet(s) Oral as needed take one [...] 2019 Inactive hydrochlorothiazide 25 mg tablet RxNorm: 039718 1 Tablet(s) Oral every day 2019 Inactive Sudafed 12 Hour 120 mg tablet,extended release RxNorm: 8509949 1 Tablet(s) Oral every 12 hours as needed 2018 Inactive omeprazole 20 mg capsule,delayed release RxNorm: 629616 1 Capsule(s) Oral every day 2019 Inactive Sudafed 12 Hour 120 mg tablet,extended release RxNorm: 6725584 1 Tablet(s) Oral every 12 hours as needed 019 2018 Inactive pantoprazole 40 mg tablet,delayed release RxNorm: 274594 1 Tablet(s) Oral every day 2018 Inactive discontinue any other H2Blkr. and PPI albuterol sulfate 2.5 mg/3 mL (0.083 %) solution for nebulization RxNorm: 321204 1 Vial Inhalation every four hours as needed as needed for dyspnea 2019 Inactive 60/box. This refill negates all other refills of this medication. Please do not fill early. Please do not auto refill. Symbicort 160 mcg-4.5 mcg/actuation HFA aerosol inhaler RxNorm: 5021768 2 Puff(s) INH BID No Stop Date Active Alcohol Prep Pads RxNorm: 041951 1 Patch TOP QAM 2020 Inactive Ventolin HFA 90 mcg/actuation aerosol inhaler RxNorm: 490350 2 Puff(s) INH QID 019 2019 Inactive Please do not fill early. Please do not auto refill. This refill negates all other refills of this medication True Metrix Glucose Test Strip RxNorm: 1 Test Strips Miscellaneous QAM 019 2019 Inactive 100/container atorvastatin 40 mg tablet RxNorm: 163475 1 Tablet(s) Oral every day 019 2019 Inactive buspirone 7.5 mg tablet RxNorm: 174256 1 Tablet(s) PO BID 019 2020 Inactive This refill negates all other refills of this medication hydrochlorothiazide 12.5 mg tablet RxNorm: 870546 1 Tablet(s) PO QAM 019 2019 Inactive levmetamfetamine 50 mg nasal inhaler RxNorm: 1 Unit(s) NASAL Q3-4H Do not use more than every 3 hours or 8 times/24hours 019 2021 Inactive Please do not auto refill. This refill negates all other refills of this medication Ventolin HFA 90 mcg/actuation aerosol inhaler RxNorm: 677089 2 Puff(s) INH QID 019 2018 Inactive Please do not fill early. Please do not auto refill. This refill negates all other refills of this medication Singulair 10 mg tablet RxNorm: 119762 1 Tablet(s) PO daily 019 2019 Inactive This refill negates all other refills of this medication cetirizine 10 mg tablet RxNorm: 3292694 1 Tablet(s) PO daily 019 2019 Inactive This refill negates all other refills of this medication. Please do not auto refill levothyroxine 50 mcg tablet RxNorm: 646903 1 Tablet(s) PO daily 019 2019 Inactive This refill negates all other refills of this medication diclofenac sodium 75 mg tablet,delayed release RxNorm: 996843 1 Tablet(s) PO BID 019 2019 Inactive This refill negates all other refills of this medication ranitidine 150 mg tablet RxNorm: 606879 1 Tablet(s) PO BID 019 2018 Inactive This refill negates all other refills of this medication Calcium 600-D3 Plus (mag-zinc) 600 mg calcium-800 unit-50 mg tablet RxNorm: 1 Tablet(s) PO daily take an additonal tablet for itching. 019 2018 Inactive This refill negates all other refills of this medication albuterol sulfate 2.5 mg/3 mL (0.083 %) solution for nebulization RxNorm: 212435 1 Vial INH QID 019 2018 Inactive 60/box. This refill negates all other refills of this medication. Please do not fill early. Please do not auto refill. lisinopril 2.5 mg tablet RxNorm: 335233 1 Tablet(s) PO daily 019 2019 Inactive gabapentin 300 mg capsule RxNorm: 856214 1 Capsule(s) PO TID 019 2019 Inactive atorvastatin 20 mg tablet RxNorm: 811443 1 Tablet(s) PO QHS 019 2018 Inactive This refill negates all other refills of this medication TRUEplus Lancets 30 gauge RxNorm: 1 Lancets Miscellaneous QA 019 2018 Inactive 100/box gabapentin 300 mg capsule RxNorm: 288393 1 Capsule(s) PO TID 019 2018 Inactive Flintstones Complete (iron) 18 mg iron chewable tablet RxNorm: 1 Tablet(s) PO daily 019 2021 Inactive This refill negates all other refills of this medication gabapentin 300 mg capsule RxNorm: 151653 1 Capsule(s) PO TID as needed 019 2018 Inactive True Metrix Glucose Test Strip RxNorm: 1 Test Strips Miscellaneous QA 019 2018 Inactive 100/container Alcohol Prep Pads RxNorm: 659090 1 Patch TOP QAM 019 2018 Inactive TRUEplus Lancets 30 gauge RxNorm: 1 Lancets Miscellaneous QAM 019 2018 Inactive 100/box lisinopril 2.5 mg tablet RxNorm: 956503 1 Tablet(s) PO daily 019 2018 Inactive ranitidine 150 mg tablet RxNorm: 756887 1 Tablet(s) PO BID 019 2018 Inactive This refill negates all other refills of this medication albuterol sulfate 2.5 mg/3 mL (0.083 %) solution for nebulization RxNorm: 434869 1 Vial INH QID 019 2018 Inactive [...] this medication gabapentin 300 mg capsule RxNorm: 317268 1 Capsule(s) PO TID as needed 019 2018 Inactive atorvastatin 20 mg tablet RxNorm: 199920 1 Tablet(s) PO QHS 019 2018 Inactive This refill negates all other refills of this medication trazodone 50 mg tablet RxNorm: 680108 1 Tablet(s) PO QHS 019 2018 Inactive This refill negates all other refills of this medication Ventolin HFA 90 mcg/actuation aerosol inhaler RxNorm: 185913 2 Puff(s) INH QID 019 2018 Inactive Please do not fill early. Please do not auto refill. This refill negates all other refills of this medication Calcium 600-D3 Plus 600 mg calcium-800 unit-50 mg tablet RxNorm: 1 Tablet(s) PO daily take an additonal tablet for itching. 019 2018 Inactive This refill negates all other refills of this medication Singulair 10 mg tablet RxNorm: 724398 1 Tablet(s) PO daily 019 2018 Inactive This refill negates all other refills of this medication buspirone 7.5 mg tablet RxNorm: 893333 1 Tablet(s) PO BID 019 2018 Inactive This refill negates all other refills of this medication diclofenac sodium 75 mg tablet,delayed release RxNorm: 973925 1 Tablet(s) PO BID 019 2018 Inactive This refill negates all other refills of this medication hydrochlorothiazide 12.5 mg tablet RxNorm: 162278 1 Tablet(s) PO QAM 019 2018 Inactive metoprolol succinate ER 50 mg tablet,extended release 24 hr RxNorm: 593746 1 Tablet(s) PO daily 019 2018 Inactive This refill negates all other refills of this medication levothyroxine 50 mcg tablet RxNorm: 416509 1 Tablet(s) PO daily 019 2018 Inactive This refill negates all other refills of this medication cetirizine 10 mg tablet RxNorm: 0549521 1 Tablet(s) PO daily 019 2018 Inactive This refill negates all other refills of this medication. Please do not auto refill Flintstones Complete (iron) 18 mg iron chewable tablet RxNorm: 1 Tablet(s) PO daily 019 2018 Inactive This refill negates all other refills of this medication buspirone 7.5 mg tablet RxNorm: 895834 1 Tablet(s) PO BID 019 2018 Inactive cetirizine 10 mg tablet RxNorm: 1982143 1 Tablet(s) PO daily 2018 Inactive Guaiasorb DM 10 mg-100 mg/5 mL oral liquid RxNorm: 994759 10 Milliliter(s) PO As needed every 4 hr 2018 Inactive Vicks Vaporub 4.7 %-1.2 %-2.6 % topical ointment RxNorm: 0977800 1 Application TOP TID 2018 Inactive levmetamfetamine 50 mg nasal inhaler RxNorm: 1 Unit(s) NASAL Q3-4H 2017 Inactive sertraline 50 mg tablet RxNorm: 440226 1 Tablet(s) PO daily 2018 Inactive Please note dose trazodone 50 mg tablet RxNorm: 265435 1 Tablet(s) PO QHS 2018 Inactive sertraline 50 mg tablet RxNorm: 663986 1 Tablet(s) PO daily 2017 Inactive amoxicillin 500 mg tablet RxNorm: 330306 1 Tablet(s) PO Q12H 2017 Inactive albuterol sulfate 2.5 mg/3 mL (0.083 %) solution for nebulization RxNorm: 197811 1 Vial INH QID 2018 Inactive 60/box. Please do not fill early. Please do not auto refill. Prozac 10 mg capsule RxNorm: 653369 1 Capsule(s) PO daily 2017 Inactive buspirone 7.5 mg tablet RxNorm: 960660 1 Tablet(s) PO BID 2018 Inactive gabapentin 300 mg capsule RxNorm: 973794 1 Capsule(s) PO TID as needed 2018 Inactive hydrochlorothiazide 12.5 mg tablet RxNorm: 983688 1 Tablet(s) PO QAM 2018 Inactive ranitidine 150 mg tablet RxNorm: 050833 1 Tablet(s) PO BID 2018 Inactive Macrobid 100 mg capsule RxNorm: 056169 1 Capsule(s) PO Q12H 2017 Inactive Singulair 10 mg tablet RxNorm: 281276 1 Tablet(s) PO daily 018 2018 Inactive Ventolin HFA 90 mcg/actuation aerosol inhaler RxNorm: 2887640 2 Puff(s) INH QID 018 2018 Inactive Singulair 10 mg tablet RxNorm: 217671 1 Tablet(s) PO daily 018 2017 Inactive buspirone 7.5 mg tablet RxNorm: 680993 1 Tablet(s) PO BID 018 2017 Inactive Prozac 10 mg capsule RxNorm: 851814 1 Capsule(s) PO daily 018 2017 Inactive diclofenac sodium 75 mg tablet,delayed release RxNorm: 397249 1 Tablet(s) PO BID 018 2017 Inactive lisinopril 2.5 mg tablet RxNorm: 543655 1 Tablet(s) PO daily 018 2017 Inactive Neilmed Pediatric Sinus Rinse Refill packet RxNorm: 1 Unit Dose NASAL PRN 018 2021 Inactive metoprolol succinate ER 50 mg tablet,extended release 24 hr RxNorm: 567167 1 Tablet(s) PO daily 018 2017 Inactive levothyroxine 50 mcg tablet RxNorm: 739390 1 Tablet(s) PO daily 018 2017 Inactive TRUEplus Lancets 30 gauge RxNorm: 1 Lancets Miscellaneous QAM 018 2017 Inactive 100/box Ventolin HFA 90 mcg/actuation aerosol inhaler RxNorm: 889014 2 Puff(s) INH QID 018 2017 Inactive Aleve 220 mg capsule RxNorm: 9520851 1 Capsule(s) PO BID 018 2018 Inactive ranitidine 150 mg tablet RxNorm: 927284 1 Tablet(s) PO BID 018 2017 Inactive gabapentin 300 mg capsule RxNorm: 013231 1 Capsule(s) PO TID as needed 018 2017 Inactive atorvastatin 20 mg tablet RxNorm: 745617 1 Tablet(s) PO QHS 018 2017 Inactive True Metrix Glucose Test Strip RxNorm: 1 Test Strips Miscellaneous QAM 018 2017 Inactive 50/container Calcium 600-D3 Plus 600 mg calcium-800 unit-50 mg tablet RxNorm: 1 Tablet(s) PO daily take an additonal tablet for itching. 018 2017 Inactive hydrochlorothiazide 12.5 mg tablet RxNorm: 755994 1 Tablet(s) PO QAM 018 2017 Inactive Flintstones Complete (iron) 18 mg iron chewable tablet RxNorm: 1 Tablet(s) PO daily 018 2017 Inactive True Metrix Glucose Meter RxNorm: miscellaneous 019 2018 Inactive sertraline 50 mg tablet RxNorm: 174478 1 Tablet(s) PO daily 020 2019 Inactive loperamide 2 mg tablet RxNorm: 932901 oral 019 2018 Inactive d-mannose oral powder RxNorm: PO 018 2021 Inactive Symbicort 160 mcg-4.5 mcg/actuation HFA aerosol inhaler RxNorm: 6535175 2 Puff(s) INH BID 019 2018 Inactive Medication Administered No Medication Administered data Procedures Procedure Codes Date [place] Fany Assessment CPT-4: DSWA 04/02 Patient Health [...] CPT-4: VACP Fall Risk Assessment SNOMED CT: 32200454 4 CPT-4: DFRA 01/13/2021 [place] Fany Assessment CPT-4: DSWA 12/01 Urinalysis, dip stick CPT-4: 99058 09/24/2020 Patient Health Questionnaire CPT-4: DPHQ Electrocardiogram CPT-4: 22202 05/14/2020 Tobacco Assessment/Screening CPT-4: TCA Fall Risk Assessment SNOMED CT: 07898940 4 CPT-4: DFRA 01/01/2020 Functional Assessment CPT-4: DFA 01/01/2020 [place] F[place] Assessment CPT-4: DSWA 11/04 Patient Health Questionnaire CPT-4: DPHQ [place] F[place] Assessment CPT-4: DSWA 10/03 Hypertension CPT-4: HTN 10/17/2019 Fall Risk Assessment SNOMED CT: 60766844 4 CPT-4: DFRA 09/19/2019 Functional Assessment CPT-4: DFA 09/19/2019 Urinalysis, dip stick CPT-4: 30325 06/21/2019 Tobacco Assessment/Screening CPT-4: TCA Patient Health Questionnaire CPT-4: DPHQ AHA/REBECCA Classification Assessment CPT-4: DAHA 04/25/2019 Controlled Substance Report CPT-4: CTRSU 04/03 Urinalysis, dip stick CPT-4: 16013 03/28/2019 Urinalysis, dip stick CPT-4: 76584 03/28/2019 M0B-Zrcdhjoohvtyyam CPT-4: 24351 Unknown W7C-Qekrslfozjizowg CPT-4: 20232 Unknown R0W-Enpcpcckkxmicrx CPT-4: 13491 Unknown U1T-Vrlmgwxnyacqgsr CPT-4: 44464 Unknown H2P-Kollkzxjxahzfyk CPT-4: 90638 Unknown I4X-Nnwfmitcthtzmej CPT-4: 24673 Unknown O3E-Rbcfrxixqlepgdf CPT-4: 32803 Unknown B1Y-Voazjaaogwwerss CPT-4: 64691 Unknown P8F-Rtcuvomyagulnaf CPT-4: 75908 Unknown Gynecology Referral SNOMED CT: 475452770 CPT-4: R14 Unknown Reason For Visit No [...] Initiated Referral: [facility] WPtel: [id number] [facility] [address] [employer] placed a call out to the patient to notify her that it has been recommended that she be seen by a urologist. Patient agreed to be seen, does not have a provider of choice and no transportation issues. [facility] [employer] faxed referral and clinical notes to [facility] in [place], [place] near the patient's home. Patient to [...] seen and prefers a provider in the [place] or [place] area. [employer] placed a call out to everyone listed in the area and the only location that was able to accept the patient's insurance was [address] [id number] and spoke with Maylin. Maylin asked that the patient's referral, face sheet and visit notes be faxed to . [employer] faxed over requested documents. Patient appointment confirmation letter generated and mailed to her home address. Patient to call to schedule an appointment. Processed Referral: [facility]: [address] [facility] [address] [place], [place] [id number] Patient notified that it has been advised that she be seen by Neurology. Patient agreed to be seen and prefers to be seen by a provider in the [place], [place] area. Patient denies any concerns with transportation, and prefers to schedule her own appointment. [facility] placed a call out to [facility] [...]
--- OUTSIDE RECORDS SUMMARY | 2023-12-07 02:20 | XMS_ITS | CCD ---
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 Unknown Has never used illegal drugs 05/31/2018 DNR Order/ Advanced Directive Unknown Full Code 05/31/2018 Allergies, Adverse Reactions, Alerts Substance Reaction Codes Entered Date Inactivated Date Status OxyContin itch, RxNorm: 487739 01/13/2021 No Inactive Da te Active *No [...] ICD-10: E78. 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 (NSAID) [...] ICD-10: R51 ICD-9: 784.0 10/03/2018 Inactive Other 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 helper (current) dr edith therapy ICD-10: Z79.899 ICD-9: V58.69 04/25/2019 Inactive Type 2 diabetes mellitus wit hout complications ICD-10: E11.9 ICD-9: 250.00 10/03/2018 Inactive Wheezing ICD-10: R06.2 ICD-9: 786.07 08/08/2018 Inactive Abnormal urine finding ICD-10: R82.90 ICD-9: 791.9 09/24/2020 Resolved Abrasion of toe ICD-10: S90.416A ICD-9: 917.0 02/14/2020 Resolved [place] eye ICD-10: H10.029 ICD-9: 372.03 12/29/2019 Resolved [...] Fill Instructions lisinopril 2.5 mg tablet RxNorm: 251158 Take 1 Tablet(s) Oral every day 2022 Inactive hydrochlorothiazide 25 mg tablet RxNorm: 612520 Take 1 Tablet(s) Oral every day 022 2021 Inactive Ozempic 1 mg/dose (4 mg/3 mL) subcutaneous pen injector RxNorm: 0910306 Take 1 Unit Dose Subcutaneous QWeek 2021 Inactive famotidine 20 mg tablet RxNorm: 596140 Take 1 Tablet(s) Oral every morning 2021 Inactive levothyroxine 50 mcg tablet RxNorm: 486744 Take 1 Tablet(s) Oral every day 2021 Inactive atorvastatin 20 mg tablet RxNorm: 517880 Take 1 Tablet(s) Oral every night at bedtime 2021 Inactive Cleocin T 1 % lotion RxNorm: 429608 Take 2 Gram(s) Topical every day 022 2021 Inactive Cleocin T 1 % lotion RxNorm: 079974 Take 2 Gram(s) Topical every day 022 2021 Inactive Ozempic 1 mg/dose (4 mg/3 mL) subcutaneous pen injector RxNorm: 8139108 Take 1 Unit Dose Subcutaneous QWeek 022 2021 Inactive Ozempic 0.25 mg or 0.5 mg (2 mg/1.5 mL) subcutaneous pen injector RxNorm: 1388780 INJECT 0.5 MGS SUBCUTANEOUSLY EVERY WEEK 2021 Inactive omeprazole 20 mg capsule,delayed release RxNorm: 341677 Take 1 Capsule(s) Oral every evening 022 2021 Inactive levothyroxine 50 mcg tablet RxNorm: 821380 Take 1 Tablet(s) Oral every day 022 2021 Inactive atorvastatin 20 mg tablet RxNorm: 764730 Take 1 Tablet(s) Oral every night at bedtime 2021 Inactive This refill negates all other refills of this medication lisinopril 2.5 mg tablet RxNorm: 989829 Take 1 Tablet(s) Oral every day 2021 Inactive gabapentin 300 mg capsule RxNorm: 634922 Take 1 Capsule(s) Oral three times a day 022 2021 Inactive montelukast 10 mg tablet RxNorm: 072564 Take 1 Tablet(s) Oral every day 022 2021 Inactive cholecalciferol (vitamin D3) 50 mcg (2,000 unit) tablet RxNorm: 634803 Take 1 Tablet(s) Oral every day 2022 Inactive Myrbetriq 50 mg tablet,extended release RxNorm: 6300729 1 Tablet(s) Oral every day No Stop Date Active Ozempic 0.25 mg or 0.5 mg (2 mg/1.5 mL) subcutaneous pen injector RxNorm: 4219160 inject 0.5 milligrams subcutaneously every week 022 2021 Inactive Ozempic 0.25 mg or 0.5 mg (2 mg/1.5 mL) subcutaneous pen injector RxNorm: 8607914 Take 0.5 Capsule(s) Injection once a week 022 2021 Inactive omeprazole 20 mg capsule,delayed release RxNorm: 936998 Take 1 Capsule(s) Oral every evening 2020 Inactive Ozempic 0.25 mg or 0.5 mg (2 mg/1.5 mL) subcutaneous pen injector RxNorm: 2356148 Take 0.25 Milligram(s) Subcutaneous once a week 2021 Inactive Easy Touch Alcohol Prep Pads RxNorm: 102915 USE DIRECTED EACH MORNING 2021 Inactive Probiotic 10 billion cell capsule RxNorm: 0151437 Take 1 Capsule(s) Oral every day 2021 Inactive levothyroxine 50 mcg tablet RxNorm: 483141 Take 1 Tablet(s) Oral every day 2020 Inactive 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 Granulizing 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 Operator (famotidine) 20 mg tablet RxNorm: 727749 Take 1 Tablet(s) Oral every morning 2020 Inactive Heartburn Relief (famotidine) 10 mg tablet RxNorm: 009770 Take 1 Tablet(s) Oral QAM 2020 Inactive levothyroxine 50 mcg tablet RxNorm: 113040 Take 1 Tablet(s) Oral QD 2020 Inactive Singulair 10 mg tablet RxNorm: 403015 TAKE (1) TABLET BY MOUTH DAILY 2020 Inactive metformin 1,000 mg tablet RxNorm: 931860 1 Tablet(s) Oral two times a day 2021 Inactive lisinopril 2.5 mg tablet RxNorm: 219532 Take 1 Tablet(s) Oral every day 021 2020 Inactive hydrochlorothiazide 25 mg tablet RxNorm: 191268 Take 1 Tablet(s) Oral every day 021 2020 Inactive ondansetron 4 mg disintegrating tablet RxNorm: 723459 1 Tablet(s) Oral two times a day 021 2020 Inactive Sudafed 12 Hour 120 mg tablet,extended release RxNorm: 7316420 TAKE 1 TABLET BY MOUTH EVERY 12 HOURS NEEDED 021 2021 Inactive Heartburn Relief (famotidine) 10 mg tablet RxNorm: 644111 Take 1 Tablet(s) Oral every morning 021 2020 Inactive omeprazole 20 mg capsule,delayed release RxNorm: 174664 1 Capsule(s) Oral every evening 021 2020 Inactive sertraline 100 mg tablet RxNorm: 325579 2 Tablet(s) Oral every day 021 2020 Inactive levothyroxine 50 mcg tablet RxNorm: 307443 TAKE (1) TABLET BY MOUTH DAILY 021 2020 Inactive metformin 500 mg tablet RxNorm: 921655 1 Tablet(s) Oral two times a day take with 500mg to equal 1000mg 021 2020 Inactive gabapentin 300 mg capsule RxNorm: 815527 TAKE 1 CAPSULE BY MOUTH THREE TIMES A DAY 021 2020 Inactive lisinopril 2.5 mg tablet RxNorm: 132992 TAKE 1 TABLET BY MOUTH DAILY 021 2020 Inactive gabapentin 300 mg capsule RxNorm: 958732 TAKE 1 CAPSULE BY MOUTH THREE TIMES A DAY 021 2020 Inactive Singulair 10 mg tablet RxNorm: 366767 TAKE (1) TABLET BY MOUTH DAILY 021 2020 Inactive metformin 1,000 mg tablet RxNorm: 251224 1 Tablet(s) Oral two times a day 021 2020 Inactive atorvastatin 40 mg tablet RxNorm: 292706 1 Tablet(s) Oral every day 021 2020 Inactive omeprazole 20 mg capsule,delayed release RxNorm: 388882 1 Capsule(s) Oral every evening 021 2020 Inactive famotidine 10 mg tablet RxNorm: 084941 1 Tablet(s) Oral every morning 021 2020 Inactive Alcohol Prep Pads RxNorm: 037186 USE EACH MORNING 021 2020 Inactive omeprazole 20 mg capsule,delayed release RxNorm: 664432 1 Capsule(s) Oral two times a day 2021 Inactive omeprazole 20 mg capsule,delayed release RxNorm: 530647 TAKE 1 CAPSULE BY MOUTH EVERY DAY 2021 Inactive Macrobid 100 mg capsule RxNorm: 117985 1 Capsule(s) Oral every 12 hours with food 2020 Inactive omeprazole 20 mg capsule,delayed release RxNorm: 619138 1 Capsule(s) Oral two times a day 2021 Inactive metformin 1,000 mg tablet RxNorm: 225634 1 Tablet(s) Oral two times a day 2020 Inactive start on September 11, 2020 metformin 500 mg tablet RxNorm: 585121 1 Tablet(s) Oral two times a day take with 500mg to equal 1000mg 2019 Inactive gabapentin 300 mg capsule RxNorm: 305078 TAKE 1 CAPSULE BY MOUTH THREE TIMES DAILY 2020 Inactive cetirizine 10 mg tablet RxNorm: 8970250 TAKE (1) TABLET BY MOUTH DAILY 2020 Inactive metformin 500 mg tablet RxNorm: 944593 1 Tablet(s) Oral two times a day 2019 Inactive loperamide 2 mg tablet RxNorm: 748801 1 Tablet(s) Oral as needed take one tablet after each loose stool, maximum of 8 tablets in 24 hours 2021 Inactive Sudafed 12 Hour 120 mg tablet,extended release RxNorm: 6007433 TAKE 1 TABLET BY MOUTH EVERY 12 HOURS NEEDED 2019 Inactive hydrochlorothiazide 25 mg tablet RxNorm: 710170 TAKE (1) TABLET BY MOUTH EVERY DAY 2019 Inactive omeprazole 20 mg capsule,delayed release RxNorm: 764429 TAKE 1 CAPSULE BY MOUTH EVERY DAY 1 Inactive metformin 500 mg tablet RxNorm: 868866 1 Tablet(s) Oral every day 2019 Inactive True Metrix Glucose Test Strip RxNorm: 1 Test Strips Miscellaneous two times a day as needed No Stop Date Active metformin 500 mg tablet RxNorm: 886656 1 Tablet(s) Oral every day 2019 Inactive diclofenac sodium 75 mg tablet,delayed release RxNorm: 235718 1 Tablet(s) PO BID 2021 Inactive This refill negates all other refills of this medication Sudafed 12 Hour 120 mg tablet,extended release RxNorm: 4802361 TAKE 1 TABLET BY MOUTH EVERY 12 HOURS NEEDED 020 2019 Inactive True Metrix Glucose Test Strip RxNorm: 1 Test Strips Miscellaneous every morning 2019 Inactive 100/container True Metrix Glucose Test Strip RxNorm: 1 Test Strips Miscellaneous QAM 020 2019 Inactive 100/container loperamide 2 mg tablet RxNorm: 130265 1 Tablet(s) Oral as needed take one tablet after each loose stool, maximum of 8 tablets in 24 hours 020 2019 Inactive cetirizine 10 mg tablet RxNorm: 8745821 1 Tablet(s) PO daily 2019 Inactive loperamide 2 mg tablet RxNorm: 401134 1 Tablet(s) Oral as needed take one tablet after each loose stool, maximum of 8 tablets in 24 hours 020 2019 Inactive quetiapine 100 mg tablet RxNorm: 829384 1 Tablet(s) Oral every night at bedtime 020 2019 Inactive levothyroxine 50 mcg tablet RxNorm: 748277 1 Tablet(s) PO daily 020 2020 Inactive gabapentin 300 mg capsule RxNorm: 531671 1 Capsule(s) PO TID 2019 Inactive levothyroxine 50 mcg tablet RxNorm: 121265 1 Tablet(s) PO daily 020 2019 Inactive lisinopril 2.5 mg tablet RxNorm: 660929 1 Tablet(s) PO daily 2020 Inactive gabapentin 300 mg capsule RxNorm: 725502 1 Capsule(s) PO TID 2019 Inactive cetirizine 10 mg tablet RxNorm: 8875111 1 Tablet(s) PO daily 2019 Inactive Singulair 10 mg tablet RxNorm: 149878 1 Tablet(s) PO daily 2020 Inactive gentamicin 0.3 % eye drops RxNorm: 623744 1 Drop(s) ophthalmic (eye) four times a day 2019 Inactive gentamicin 0.3 % eye drops RxNorm: 655327 1 Drop(s) ophthalmic (eye) four times a day 2019 Inactive gentamicin 0.3 % eye drops RxNorm: 148564 1 Drop(s) ophthalmic (eye) four times a day 2019 Inactive hydrochlorothiazide 25 mg tablet RxNorm: 877540 1 Tablet(s) Oral every day 2019 Inactive Sudafed 12 Hour 120 mg tablet,extended release RxNorm: 7065157 TAKE (1) TABLET BY MOUTH EVERY 12 HOURS NEEDED 2019 Inactive loperamide 2 mg tablet RxNorm: 219685 1 Tablet(s) Oral as needed take one tablet after each loose stool, maximum of 8 tablets in 24 hours 2019 Inactive loperamide 2 mg tablet RxNorm: 707949 1 Tablet(s) Oral as needed take one tablet after each loose stool, maximum of 8 tablets in 24 hours 020 2019 Inactive atorvastatin 40 mg tablet RxNorm: 349280 1 Tablet(s) Oral every day 2020 Inactive quetiapine 100 mg tablet RxNorm: 628811 1 Tablet(s) Oral every night at bedtime 2019 Inactive sertraline 100 mg tablet RxNorm: 353860 1 Tablet(s) Oral 020 2019 Inactive omeprazole 20 mg capsule,delayed release RxNorm: 247855 1 Capsule(s) Oral every day 020 2019 Inactive amoxicillin 250 mg capsule RxNorm: 982116 1 Capsule(s) Oral three times a day 2019 Inactive multivitamin with iron-mineral tablet RxNorm: 1 Tablet(s) Oral every day 020 2021 Inactive cetirizine 10 mg tablet RxNorm: 6204551 1 Tablet(s) PO daily 2019 Inactive This refill negates all other refills of this medication. Please do not auto refill Singulair 10 mg tablet RxNorm: 004499 1 Tablet(s) PO daily 2019 Inactive This refill negates all other refills of this medication gabapentin 300 mg capsule RxNorm: 686728 1 Capsule(s) PO TID 2019 Inactive lisinopril 2.5 mg tablet RxNorm: 155132 1 Tablet(s) PO daily 2019 Inactive levothyroxine 50 mcg tablet RxNorm: 453435 1 Tablet(s) PO daily 2019 Inactive This refill negates all other refills of this medication hydrochlorothiazide 25 mg tablet RxNorm: 518079 1 Tablet(s) Oral every day 2019 Inactive fenugreek seed extract 500 mg capsule RxNorm: 1 Capsule(s) Oral three times a day 020 2021 Inactive Alcohol Prep Pads RxNorm: 793358 1 Patch TOP QAM 020 2020 Inactive loperamide 2 mg tablet RxNorm: 292604 1 Tablet(s) Oral as needed take one [...] 2019 Inactive hydrochlorothiazide 25 mg tablet RxNorm: 621296 1 Tablet(s) Oral every day 2019 Inactive Sudafed 12 Hour 120 mg tablet,extended release RxNorm: 1511654 1 Tablet(s) Oral every 12 hours as needed 2018 Inactive omeprazole 20 mg capsule,delayed release RxNorm: 748969 1 Capsule(s) Oral every day 2019 Inactive Sudafed 12 Hour 120 mg tablet,extended release RxNorm: 8243592 1 Tablet(s) Oral every 12 hours as needed 2018 Inactive pantoprazole 40 mg tablet,delayed release RxNorm: 488407 1 Tablet(s) Oral every day 2018 Inactive discontinue any other H2Blkr. and PPI albuterol sulfate 2.5 mg/3 mL (0.083 %) solution for nebulization RxNorm: 124226 1 Vial Inhalation every four hours as needed as needed for dyspnea 2019 Inactive 60/box. This refill negates all other refills of this medication. Please do not fill early. Please do not auto refill. Symbicort 160 mcg-4.5 mcg/actuation HFA aerosol inhaler RxNorm: 8212903 2 Puff(s) INH BID No Stop Date Active Alcohol Prep Pads RxNorm: 128879 1 Patch TOP QAM 2019 Inactive Ventolin HFA 90 mcg/actuation aerosol inhaler RxNorm: 697718 2 Puff(s) INH QID 04/ 2020 Inactive Please do not fill early. Please do not auto refill. This refill negates all other refills of this medication True Metrix Glucose Test Strip RxNorm: 1 Test Strips Miscellaneous QAM 019 2019 Inactive 100/container atorvastatin 40 mg tablet RxNorm: 775858 1 Tablet(s) Oral every day 2019 Inactive buspirone 7.5 mg tablet RxNorm: 246802 1 Tablet(s) PO BID 019 2020 Inactive This refill negates all other refills of this medication hydrochlorothiazide 12.5 mg tablet RxNorm: 596853 1 Tablet(s) PO QAM 019 2019 Inactive levmetamfetamine 50 mg nasal inhaler RxNorm: 1 Unit(s) NASAL Q3-4H Do not use more than every 3 hours or 8 times/24hours 2021 Inactive Please do not auto refill. This refill negates all other refills of this medication Ventolin HFA 90 mcg/actuation aerosol inhaler RxNorm: 727583 2 Puff(s) INH QID 019 2018 Inactive Please do not fill early. Please do not auto refill. This refill negates all other refills of this medication Singulair 10 mg tablet RxNorm: 840230 1 Tablet(s) PO daily 019 2019 Inactive This refill negates all other refills of this medication cetirizine 10 mg tablet RxNorm: 8672223 1 Tablet(s) PO daily 019 2019 Inactive This refill negates all other refills of this medication. Please do not auto refill levothyroxine 50 mcg tablet RxNorm: 131205 1 Tablet(s) PO daily 019 2019 Inactive This refill negates all other refills of this medication diclofenac sodium 75 mg tablet,delayed release RxNorm: 908144 1 Tablet(s) PO BID 019 2019 Inactive This refill negates all other refills of this medication ranitidine 150 mg tablet RxNorm: 519531 1 Tablet(s) PO BID 2018 Inactive This refill negates all other refills of this medication Calcium 600-D3 Plus (mag-zinc) 600 mg calcium-800 unit-50 mg tablet RxNorm: 1 Tablet(s) PO daily take an additonal tablet for itching. 2018 Inactive This refill negates all other refills of this medication albuterol sulfate 2.5 mg/3 mL (0.083 %) solution for nebulization RxNorm: 862503 1 Vial INH QID 2018 Inactive 60/box. This refill negates all other refills of this medication. Please do not fill early. Please do not auto refill. lisinopril 2.5 mg tablet RxNorm: 362191 1 Tablet(s) PO daily 2019 Inactive gabapentin 300 mg capsule RxNorm: 015998 1 Capsule(s) PO TID 019 2019 Inactive atorvastatin 20 mg tablet RxNorm: 862665 1 Tablet(s) PO QHS 2018 Inactive This refill negates all other refills of this medication TRUEplus Lancets 30 gauge RxNorm: 1 Lancets Miscellaneous QAM 019 2018 Inactive 100/box gabapentin 300 mg capsule RxNorm: 932042 1 Capsule(s) PO TID 019 2018 Inactive Flintstones Complete (iron) 18 mg iron chewable tablet RxNorm: 1 Tablet(s) PO daily 019 2021 Inactive This refill negates all other refills of this medication gabapentin 300 mg capsule RxNorm: 863571 1 Capsule(s) PO TID as needed 019 2018 Inactive True Metrix Glucose Test Strip RxNorm: 1 Test Strips Miscellaneous QAM 019 2018 Inactive 100/container Alcohol Prep Pads RxNorm: 598946 1 Patch TOP QAM 019 2018 Inactive TRUEplus Lancets 30 gauge RxNorm: 1 Lancets Miscellaneous QAM 019 2018 Inactive 100/box lisinopril 2.5 mg tablet RxNorm: 381359 1 Tablet(s) PO daily 019 2018 Inactive ranitidine 150 mg tablet RxNorm: 194579 1 Tablet(s) PO BID 019 2018 Inactive This refill negates all other refills of this medication albuterol sulfate 2.5 mg/3 mL (0.083 %) solution for nebulization RxNorm: 427230 1 Vial INH QID 019 2018 Inactive [...] this medication gabapentin 300 mg capsule RxNorm: 772297 1 Capsule(s) PO TID as needed 019 2018 Inactive atorvastatin 20 mg tablet RxNorm: 829078 1 Tablet(s) PO QHS 019 2018 Inactive This refill negates all other refills of this medication trazodone 50 mg tablet RxNorm: 725396 1 Tablet(s) PO QHS 019 2018 Inactive This refill negates all other refills of this medication Ventolin HFA 90 mcg/actuation aerosol inhaler RxNorm: 089987 2 Puff(s) INH QID 019 2018 Inactive Please do not fill early. Please do not auto refill. This refill negates all other refills of this medication Calcium 600-D3 Plus 600 mg calcium-800 unit-50 mg tablet RxNorm: 1 Tablet(s) PO daily take an additonal tablet for itching. 019 2018 Inactive This refill negates all other refills of this medication Singulair 10 mg tablet RxNorm: 174239 1 Tablet(s) PO daily 019 2018 Inactive This refill negates all other refills of this medication buspirone 7.5 mg tablet RxNorm: 105709 1 Tablet(s) PO BID 019 2018 Inactive This refill negates all other refills of this medication diclofenac sodium 75 mg tablet,delayed release RxNorm: 536068 1 Tablet(s) PO BID 019 2018 Inactive This refill negates all other refills of this medication hydrochlorothiazide 12.5 mg tablet RxNorm: 375645 1 Tablet(s) PO QAM 019 2018 Inactive metoprolol succinate ER 50 mg tablet,extended release 24 hr RxNorm: 684698 1 Tablet(s) PO daily 019 2018 Inactive This refill negates all other refills of this medication levothyroxine 50 mcg tablet RxNorm: 353505 1 Tablet(s) PO daily 019 2018 Inactive This refill negates all other refills of this medication cetirizine 10 mg tablet RxNorm: 7591548 1 Tablet(s) PO daily 019 2018 Inactive This refill negates all other refills of this medication. Please do not auto refill Flintstones Complete (iron) 18 mg iron chewable tablet RxNorm: 1 Tablet(s) PO daily 019 2018 Inactive This refill negates all other refills of this medication buspirone 7.5 mg tablet RxNorm: 386865 1 Tablet(s) PO BID 019 2018 Inactive cetirizine 10 mg tablet RxNorm: 8579738 1 Tablet(s) PO daily 018 2018 Inactive Guaiasorb DM 10 mg-100 mg/5 mL oral liquid RxNorm: 712538 10 Milliliter(s) PO As needed every 4 hr 018 2018 Inactive Vicks Vaporub 4.7 %-1.2 %-2.6 % topical ointment RxNorm: 9403578 1 Application TOP TID 2018 Inactive levmetamfetamine 50 mg nasal inhaler RxNorm: 1 Unit(s) NASAL Q3-4H 2017 Inactive sertraline 50 mg tablet RxNorm: 910961 1 Tablet(s) PO daily 2018 Inactive Please note dose trazodone 50 mg tablet RxNorm: 218761 1 Tablet(s) PO QHS 2018 Inactive sertraline 50 mg tablet RxNorm: 425858 1 Tablet(s) PO daily 2017 Inactive amoxicillin 500 mg tablet RxNorm: 713478 1 Tablet(s) PO Q12H 2017 Inactive albuterol sulfate 2.5 mg/3 mL (0.083 %) solution for nebulization RxNorm: 581770 1 Vial INH QID 2018 Inactive 60/box. Please do not fill early. Please do not auto refill. Prozac 10 mg capsule RxNorm: 273766 1 Capsule(s) PO daily 2017 Inactive buspirone 7.5 mg tablet RxNorm: 381103 1 Tablet(s) PO BID 2018 Inactive gabapentin 300 mg capsule RxNorm: 844483 1 Capsule(s) PO TID as needed 2018 Inactive hydrochlorothiazide 12.5 mg tablet RxNorm: 005235 1 Tablet(s) PO QAM 2018 Inactive ranitidine 150 mg tablet RxNorm: 033706 1 Tablet(s) PO BID 2018 Inactive Macrobid 100 mg capsule RxNorm: 549174 1 Capsule(s) PO Q12H 018 2017 Inactive Singulair 10 mg tablet RxNorm: 638118 1 Tablet(s) PO daily 2018 Inactive Ventolin HFA 90 mcg/actuation aerosol inhaler RxNorm: 0736051 2 Puff(s) INH QID 018 2018 Inactive Singulair 10 mg tablet RxNorm: 488279 1 Tablet(s) PO daily 018 2017 Inactive buspirone 7.5 mg tablet RxNorm: 974321 1 Tablet(s) PO BID 018 2017 Inactive Prozac 10 mg capsule RxNorm: 980877 1 Capsule(s) PO daily 018 2017 Inactive diclofenac sodium 75 mg tablet,delayed release RxNorm: 683660 1 Tablet(s) PO BID 018 2017 Inactive lisinopril 2.5 mg tablet RxNorm: 066509 1 Tablet(s) PO daily 018 2017 Inactive Neilmed Pediatric Sinus Rinse Refill packet RxNorm: 1 Unit Dose NASAL PRN 018 2021 Inactive metoprolol succinate ER 50 mg tablet,extended release 24 hr RxNorm: 780596 1 Tablet(s) PO daily 018 2017 Inactive levothyroxine 50 mcg tablet RxNorm: 792867 1 Tablet(s) PO daily 018 2017 Inactive TRUEplus Lancets 30 gauge RxNorm: 1 Lancets Miscellaneous QAM 018 2017 Inactive 100/box Ventolin HFA 90 mcg/actuation aerosol inhaler RxNorm: 887895 2 Puff(s) INH QID 018 2017 Inactive Aleve 220 mg capsule RxNorm: 7082435 1 Capsule(s) PO BID 018 2018 Inactive ranitidine 150 mg tablet RxNorm: 915389 1 Tablet(s) PO BID 018 2017 Inactive gabapentin 300 mg capsule RxNorm: 180512 1 Capsule(s) PO TID as needed 018 2017 Inactive atorvastatin 20 mg tablet RxNorm: 305509 1 Tablet(s) PO QHS 018 2017 Inactive True Metrix Glucose Test Strip RxNorm: 1 Test Strips Miscellaneous QAM 018 2017 Inactive 50/container Calcium 600-D3 Plus 600 mg calcium-800 unit-50 mg tablet RxNorm: 1 Tablet(s) PO daily take an additonal tablet for itching. 018 2017 Inactive hydrochlorothiazide 12.5 mg tablet RxNorm: 908054 1 Tablet(s) PO QAM 018 2017 Inactive Flintstones Complete (iron) 18 mg iron chewable tablet RxNorm: 1 Tablet(s) PO daily 018 2017 Inactive True Metrix Glucose Meter RxNorm: miscellaneous 019 2018 Inactive sertraline 50 mg tablet RxNorm: 977009 1 Tablet(s) PO daily 020 2019 Inactive loperamide 2 mg tablet RxNorm: 066631 oral 019 2018 Inactive d-mannose oral powder RxNorm: PO 018 2021 Inactive Symbicort 160 mcg-4.5 mcg/actuation HFA aerosol inhaler RxNorm: 0049322 2 Puff(s) INH BID 019 2018 Inactive Medication Administered No Medication Administered data Procedures Procedure Codes Date [place] Assessment CPT-4: DSWA 04/02 Patient Health [...] CPT-4: VACP Fall Risk Assessment SNOMED CT: 08296656 4 CPT-4: DFRA 01/13/2021 [place] Assessment CPT-4: DSWA 12/01 Urinalysis, dip stick CPT-4: 37050 09/24/2020 Patient Health Questionnaire CPT-4: DPHQ Electrocardiogram CPT-4: 32832 05/14/2020 Tobacco Assessment/Screening CPT-4: TCA Fall Risk Assessment SNOMED CT: 61077526 4 CPT-4: DFRA 01/01/2020 Functional Assessment CPT-4: DFA 01/01/2020 [place] Assessment CPT-4: DSWA 11/04 Patient Health Questionnaire CPT-4: DPHQ [place] Assessment CPT-4: DSWA 10/03 Hypertension CPT-4: HTN 10/17/2019 Fall Risk Assessment SNOMED CT: 45629915 4 CPT-4: DFRA 09/19/2019 Functional Assessment CPT-4: DFA 09/19/2019 Urinalysis, dip stick CPT-4: 97217 06/21/2019 Tobacco Assessment/Screening CPT-4: TCA Patient Health Questionnaire CPT-4: DPHQ AHA/REBECCA Classification Assessment CPT-4: DAHA 04/25/2019 Controlled Substance Report CPT-4: CTRSU 04/03 Urinalysis, dip stick CPT-4: 28149 03/28/2019 Urinalysis, dip stick CPT-4: 44580 03/28/2019 O5C-Zzajszpswxogjou CPT-4: 87908 Unknown A3B-Oqpdxqqmsmxztvh CPT-4: 35686 Unknown X7B-Nxtagoomuvtjllh CPT-4: 11692 Unknown Z1T-Wfnypxzuyltetbb CPT-4: 40685 Unknown M0H-Rsthqirrkrdwrwv CPT-4: 65088 Unknown E4H-Kpecucqkhffamon CPT-4: 24221 Unknown H4M-Hkxcwndhxrdesup CPT-4: 04075 Unknown I4T-Opskrruhufvufsn CPT-4: 23925 Unknown S5Z-Hctswduzbmmrqfk CPT-4: 08000 Unknown Gynecology Referral SNOMED CT: 066311297 CPT-4: R14 Unknown Reason For Visit No Reason For Visit data Plan of Care Planned Activity Notes Codes Status Date Referral: Pending Gynecology Referral Information Referral Processed Referral: Pending Pulmonolog y Referral Information Referral Processed Referral: Pending Psychiatry Referral Information Referral Initiated Referral: Pending Respirator y Services Referral Information Referral Initiated Referral: Pending Ophthalmol ogy Referral Information Referral Initiated Referral: [facility] WPtel: [address] [facility] [address] Traveling Nurse placed a call out to the patient to notify her that it has been recommended that she be seen by a urologist. Patient agreed to be seen, does not have a provider of choice and no transportation issues. Traveling Nurse faxed referral and clinical notes to [facility] in [place], [place] near the patient's home. Patient to [...] seen and prefers a provider in the [place] or [place] area. Traveling Nurse placed a call out to everyone listed in the area and the only location that was able to accept the patient's insurance was [address] [id number] and spoke with Maylin. Maylin asked that the patient's referral, face sheet and visit notes be faxed to . Traveling Nurse faxed over requested documents. Patient appointment confirmation letter generated and mailed to her home address. Patient to call to schedule an appointment. Processed Referral: [facility] WPtel: [address] [facility] [address] [place] [address] Patient notified that it has been advised that she be seen by Neurology. Patient agreed to be seen and prefers to be seen by a provider in the [place], [place] area. Patient denies any concerns with transportation, and prefers to schedule her own appointment. Traveling Nurse placed a call out to [facility] and spoke with Neeraj Mcfarland: who confirmed that their office is able to accept new patients and the patient's insurance. After confirming the providers fax number, sports book writer faxed over the patient's [...]
--- OUTSIDE RECORDS SUMMARY | 2023-12-07 02:20 | XMS_ITS | CCD ---
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 Unknown Has never used illegal drugs 05/31/2018 DNR Order/ Advanced Directive Unknown Full Code 05/31/2018 Allergies, Adverse Reactions, Alerts Substance Reaction Codes Entered Date Inactivated Date Status OxyContin itch, RxNorm: 481372 01/13/2021 No Inactive Da te Active *No [...] ICD-10: E78. 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 retirement (current) use of non-steroidal anti-inflammatories (NSAID) ICD-10: [...] ICD-10: R51 ICD-9: 784.0 10/03/2018 Inactive Other retirement (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 ICD-10: Z79.899 ICD-9: V58.69 04/25/2019 Inactive Type 2 diabetes mellitus wit hout complications ICD-10: E11.9 ICD-9: 250.00 10/03/2018 Inactive Wheezing ICD-10: R06.2 ICD-9: 786.07 08/08/2018 Inactive Abnormal urine finding ICD-10: R82.90 ICD-9: 791.9 09/24/2020 Resolved Abrasion of toe ICD-10: S90.416A ICD-9: 917.0 02/14/2020 Resolved [place] eye ICD-10: H10.029 ICD-9: 372.03 12/29/2019 Resolved [...] (4 mg/3 mL) subcutaneous pen injector RxNorm: 6428408 Take 1 Unit Dose Subcutaneous QWeek Tuesday 022 2021 Inactive lisinopril 2.5 mg tablet RxNorm: 399997 Take 1 Tablet(s) Oral every day 022 2021 Inactive lisinopril 2.5 mg tablet RxNorm: 936943 Take 1 Tablet(s) Oral every day 022 2022 Inactive hydrochlorothiazide 25 mg tablet RxNorm: 177369 Take 1 Tablet(s) Oral every day 022 2021 Inactive Ozempic 1 mg/dose (4 mg/3 mL) subcutaneous pen injector RxNorm: 4893878 Take 1 Unit Dose Subcutaneous QWeek 022 2021 Inactive famotidine 20 mg tablet RxNorm: 301943 Take 1 Tablet(s) Oral every morning 022 2021 Inactive levothyroxine 50 mcg tablet RxNorm: 177265 Take 1 Tablet(s) Oral every day 022 2021 Inactive atorvastatin 20 mg tablet RxNorm: 657132 Take 1 Tablet(s) Oral every night at bedtime 2021 Inactive Cleocin T 1 % lotion RxNorm: 355855 Take 2 Gram(s) Topical every day 022 2021 Inactive Cleocin T 1 % lotion RxNorm: 731720 Take 2 Gram(s) Topical every day 2021 Inactive Ozempic 1 mg/dose (4 mg/3 mL) subcutaneous pen injector RxNorm: 4333813 Take 1 Unit Dose Subcutaneous QWeek 2021 Inactive Ozempic 0.25 mg or 0.5 mg (2 mg/1.5 mL) subcutaneous pen injector RxNorm: 7063986 INJECT 0.5 MGS SUBCUTANEOUSLY EVERY WEEK 2021 Inactive omeprazole 20 mg capsule,delayed release RxNorm: 205131 Take 1 Capsule(s) Oral every evening 2021 Inactive levothyroxine 50 mcg tablet RxNorm: 181953 Take 1 Tablet(s) Oral every day 2021 Inactive atorvastatin 20 mg tablet RxNorm: 955081 Take 1 Tablet(s) Oral every night at bedtime 2021 Inactive This refill negates all other refills of this medication lisinopril 2.5 mg tablet RxNorm: 184980 Take 1 Tablet(s) Oral every day 2021 Inactive gabapentin 300 mg capsule RxNorm: 727145 Take 1 Capsule(s) Oral three times a day 022 2021 Inactive montelukast 10 mg tablet RxNorm: 812422 Take 1 Tablet(s) Oral every day 022 04/07/ 2022 Inactive cholecalciferol (vitamin D3) 50 mcg (2,000 unit) tablet RxNorm: 010324 Take 1 Tablet(s) Oral every day 2022 Inactive Myrbetriq 50 mg tablet,extended release RxNorm: 9085833 1 Tablet(s) Oral every day No Stop Date Active Ozempic 0.25 mg or 0.5 mg (2 mg/1.5 mL) subcutaneous pen injector RxNorm: 6267166 inject 0.5 milligrams subcutaneously every week 2021 Inactive Ozempic 0.25 mg or 0.5 mg (2 mg/1.5 mL) subcutaneous pen injector RxNorm: 3202925 Take 0.5 Capsule(s) Injection once a week 2021 Inactive omeprazole 20 mg capsule,delayed release RxNorm: 102249 Take 1 Capsule(s) Oral every evening 2020 Inactive Ozempic 0.25 mg or 0.5 mg (2 mg/1.5 mL) subcutaneous pen injector RxNorm: 6737657 Take 0.25 Milligram(s) Subcutaneous once a week 2021 Inactive Easy Touch Alcohol Prep Pads RxNorm: 041132 USE DIRECTED EACH MORNING 2021 Inactive Probiotic 10 billion cell capsule RxNorm: 5502145 Take 1 Capsule(s) Oral every day 2021 Inactive levothyroxine 50 mcg tablet RxNorm: 308762 Take 1 Tablet(s) Oral every day 2020 Inactive Acid Rejector (famotidine) 20 mg tablet RxNorm: 818765 Take 1 Tablet(s) Oral every morning 2020 Inactive Heartburn Relief (famotidine) 10 mg tablet RxNorm: 370499 Take 1 Tablet(s) Oral QAM 2020 Inactive levothyroxine 50 mcg tablet RxNorm: 092220 Take 1 Tablet(s) Oral QD 2020 Inactive Singulair 10 mg tablet RxNorm: 542915 TAKE (1) TABLET BY MOUTH DAILY 021 2020 Inactive metformin 1,000 mg tablet RxNorm: 819921 1 Tablet(s) Oral two times a day 021 2021 Inactive lisinopril 2.5 mg tablet RxNorm: 802629 Take 1 Tablet(s) Oral every day 021 2020 Inactive hydrochlorothiazide 25 mg tablet RxNorm: 429591 Take 1 Tablet(s) Oral every day 021 2020 Inactive ondansetron 4 mg disintegrating tablet RxNorm: 284925 1 Tablet(s) Oral two times a day 021 2020 Inactive Sudafed 12 Hour 120 mg tablet,extended release RxNorm: 9615954 TAKE 1 TABLET BY MOUTH EVERY 12 HOURS NEEDED 2021 Inactive Heartburn Relief (famotidine) 10 mg tablet RxNorm: 708035 Take 1 Tablet(s) Oral every morning 021 2020 Inactive omeprazole 20 mg capsule,delayed release RxNorm: 987315 1 Capsule(s) Oral every evening 021 2020 Inactive sertraline 100 mg tablet RxNorm: 680455 2 Tablet(s) Oral every day 021 2020 Inactive levothyroxine 50 mcg tablet RxNorm: 584048 TAKE (1) TABLET BY MOUTH DAILY 021 2020 Inactive metformin 500 mg tablet RxNorm: 616837 1 Tablet(s) Oral two times a day take with 500mg to equal 1000mg 021 2020 Inactive gabapentin 300 mg capsule RxNorm: 713357 TAKE 1 CAPSULE BY MOUTH THREE TIMES A DAY 021 2020 Inactive lisinopril 2.5 mg tablet RxNorm: 465138 TAKE 1 TABLET BY MOUTH DAILY 021 2020 Inactive gabapentin 300 mg capsule RxNorm: 538113 TAKE 1 CAPSULE BY MOUTH THREE TIMES A DAY 021 2020 Inactive Singulair 10 mg tablet RxNorm: 063083 TAKE (1) TABLET BY MOUTH DAILY 021 2020 Inactive metformin 1,000 mg tablet RxNorm: 099445 1 Tablet(s) Oral two times a day 021 2020 Inactive atorvastatin 40 mg tablet RxNorm: 362461 1 Tablet(s) Oral every day 021 2020 Inactive omeprazole 20 mg capsule,delayed release RxNorm: 245203 1 Capsule(s) Oral every evening 021 2020 Inactive famotidine 10 mg tablet RxNorm: 992913 1 Tablet(s) Oral every morning 021 2020 Inactive Alcohol Prep Pads RxNorm: 898590 USE EACH MORNING 021 2020 Inactive omeprazole 20 mg capsule,delayed release RxNorm: 666303 1 Capsule(s) Oral two times a day 2021 Inactive omeprazole 20 mg capsule,delayed release RxNorm: 280081 TAKE 1 CAPSULE BY MOUTH EVERY DAY 2021 Inactive Macrobid 100 mg capsule RxNorm: 979662 1 Capsule(s) Oral every 12 hours with food 2020 Inactive omeprazole 20 mg capsule,delayed release RxNorm: 088317 1 Capsule(s) Oral two times a day 2021 Inactive metformin 1,000 mg tablet RxNorm: 220638 1 Tablet(s) Oral two times a day 2020 Inactive start on September 11, 2020 metformin 500 mg tablet RxNorm: 888181 1 Tablet(s) Oral two times a day take with 500mg to equal 1000mg 2019 Inactive gabapentin 300 mg capsule RxNorm: 583149 TAKE 1 CAPSULE BY MOUTH THREE TIMES DAILY 2020 Inactive cetirizine 10 mg tablet RxNorm: 2814487 TAKE (1) TABLET BY MOUTH DAILY 2020 Inactive metformin 500 mg tablet RxNorm: 041070 1 Tablet(s) Oral two times a day 020 2019 Inactive loperamide 2 mg tablet RxNorm: 066605 1 Tablet(s) Oral as needed take one tablet after each loose stool, maximum of 8 tablets in 24 hours 020 2021 Inactive Sudafed 12 Hour 120 mg tablet,extended release RxNorm: 5315987 TAKE 1 TABLET BY MOUTH EVERY 12 HOURS NEEDED 020 2019 Inactive hydrochlorothiazide 25 mg tablet RxNorm: 476365 TAKE (1) TABLET BY MOUTH EVERY DAY 020 2019 Inactive omeprazole 20 mg capsule,delayed release RxNorm: 716662 TAKE 1 CAPSULE BY MOUTH EVERY DAY 020 2020 Inactive metformin 500 mg tablet RxNorm: 286995 1 Tablet(s) Oral every day 020 2019 Inactive True Metrix Glucose Test Strip RxNorm: 1 Test Strips Miscellaneous two times a day as needed No Stop Date Active metformin 500 mg tablet RxNorm: 212120 1 Tablet(s) Oral every day 020 2019 Inactive diclofenac sodium 75 mg tablet,delayed release RxNorm: 526366 1 Tablet(s) PO BID 020 2021 Inactive This refill negates all other refills of this medication Sudafed 12 Hour 120 mg tablet,extended release RxNorm: 8945693 TAKE 1 TABLET BY MOUTH EVERY 12 HOURS NEEDED 020 2019 Inactive True Metrix Glucose Test Strip RxNorm: 1 Test Strips Miscellaneous every morning 020 2019 Inactive 100/container True Metrix Glucose Test Strip RxNorm: 1 Test Strips Miscellaneous [facility] 020 2019 Inactive 100/container loperamide 2 mg tablet RxNorm: 091869 1 Tablet(s) Oral as needed take one tablet after each loose stool, maximum of 8 tablets in 24 hours 020 2019 Inactive cetirizine 10 mg tablet RxNorm: 8801072 1 Tablet(s) PO daily 2019 Inactive loperamide 2 mg tablet RxNorm: 061693 1 Tablet(s) Oral as needed take one tablet after each loose stool, maximum of 8 tablets in 24 hours 2019 Inactive quetiapine 100 mg tablet RxNorm: 132429 1 Tablet(s) Oral every night at bedtime 2019 Inactive levothyroxine 50 mcg tablet RxNorm: 852583 1 Tablet(s) PO daily 2020 Inactive gabapentin 300 mg capsule RxNorm: 068253 1 Capsule(s) PO TID 2019 Inactive levothyroxine 50 mcg tablet RxNorm: 345393 1 Tablet(s) PO daily 2019 Inactive lisinopril 2.5 mg tablet RxNorm: 924932 1 Tablet(s) PO daily 2020 Inactive gabapentin 300 mg capsule RxNorm: 117073 1 Capsule(s) PO TID 2019 Inactive cetirizine 10 mg tablet RxNorm: 7541371 1 Tablet(s) PO daily 2019 Inactive Singulair 10 mg tablet RxNorm: 688844 1 Tablet(s) PO daily 2020 Inactive gentamicin 0.3 % eye drops RxNorm: 840502 1 Drop(s) ophthalmic (eye) four times a day 2019 Inactive gentamicin 0.3 % eye drops RxNorm: 166003 1 Drop(s) ophthalmic (eye) four times a day 2019 Inactive gentamicin 0.3 % eye drops RxNorm: 512713 1 Drop(s) ophthalmic (eye) four times a day 2019 Inactive hydrochlorothiazide 25 mg tablet RxNorm: 041537 1 Tablet(s) Oral every day 2019 Inactive Sudafed 12 Hour 120 mg tablet,extended release RxNorm: 4672275 TAKE (1) TABLET BY MOUTH EVERY 12 HOURS NEEDED 2019 Inactive loperamide 2 mg tablet RxNorm: 995340 1 Tablet(s) Oral as needed take one tablet after each loose stool, maximum of 8 tablets in 24 hours 020 2019 Inactive loperamide 2 mg tablet RxNorm: 329701 1 Tablet(s) Oral as needed take one tablet after each loose stool, maximum of 8 tablets in 24 hours 020 2019 Inactive atorvastatin 40 mg tablet RxNorm: 931175 1 Tablet(s) Oral every day 2020 Inactive quetiapine 100 mg tablet RxNorm: 520804 1 Tablet(s) Oral every night at bedtime 2019 Inactive sertraline 100 mg tablet RxNorm: 731974 1 Tablet(s) Oral 2019 Inactive omeprazole 20 mg capsule,delayed release RxNorm: 669788 1 Capsule(s) Oral every day 2019 Inactive amoxicillin 250 mg capsule RxNorm: 126678 1 Capsule(s) Oral three times a day 2019 Inactive multivitamin with iron-mineral tablet RxNorm: 1 Tablet(s) Oral every day 2021 Inactive cetirizine 10 mg tablet RxNorm: 7305791 1 Tablet(s) PO daily 2019 Inactive This refill negates all other refills of this medication. Please do not auto refill Singulair 10 mg tablet RxNorm: 365805 1 Tablet(s) PO daily 2019 Inactive This refill negates all other refills of this medication gabapentin 300 mg capsule RxNorm: 735216 1 Capsule(s) PO TID 2019 Inactive lisinopril 2.5 mg tablet RxNorm: 073173 1 Tablet(s) PO daily 020 2019 Inactive levothyroxine 50 mcg tablet RxNorm: 495097 1 Tablet(s) PO daily 2019 Inactive This refill negates all other refills of this medication hydrochlorothiazide 25 mg tablet RxNorm: 292377 1 Tablet(s) Oral every day 2019 Inactive fenugreek seed extract 500 mg capsule RxNorm: 1 Capsule(s) Oral three times a day 2021 Inactive Alcohol Prep Pads RxNorm: 821689 1 Patch TOP QAM 2020 Inactive loperamide 2 mg tablet RxNorm: 570660 1 Tablet(s) Oral as needed take one [...] 2019 Inactive hydrochlorothiazide 25 mg tablet RxNorm: 867809 1 Tablet(s) Oral every day 2019 Inactive Sudafed 12 Hour 120 mg tablet,extended release RxNorm: 3291848 1 Tablet(s) Oral every 12 hours as needed 2018 Inactive omeprazole 20 mg capsule,delayed release RxNorm: 800667 1 Capsule(s) Oral every day 019 2019 Inactive Sudafed 12 Hour 120 mg tablet,extended release RxNorm: 2650988 1 Tablet(s) Oral every 12 hours as needed 019 2018 Inactive pantoprazole 40 mg tablet,delayed release RxNorm: 622408 1 Tablet(s) Oral every day 2018 Inactive discontinue any other H2Blkr. and PPI albuterol sulfate 2.5 mg/3 mL (0.083 %) solution for nebulization RxNorm: 405239 1 Vial Inhalation every four hours as needed as needed for dyspnea 2019 Inactive 60/box. This refill negates all other refills of this medication. Please do not fill early. Please do not auto refill. Symbicort 160 mcg-4.5 mcg/actuation HFA aerosol inhaler RxNorm: 2907586 2 Puff(s) INH BID No Stop Date Active Alcohol Prep Pads RxNorm: 064910 1 Patch TOP QAM 019 2019 Inactive Ventolin HFA 90 mcg/actuation aerosol inhaler RxNorm: 713614 2 Puff(s) INH QID 019 2019 Inactive Please do not fill early. Please do not auto refill. This refill negates all other refills of this medication True Metrix Glucose Test Strip RxNorm: 1 Test Strips Miscellaneous QA 019 2019 Inactive 100/container atorvastatin 40 mg tablet RxNorm: 223266 1 Tablet(s) Oral every day 019 2019 Inactive buspirone 7.5 mg tablet RxNorm: 567111 1 Tablet(s) PO BID 019 2020 Inactive This refill negates all other refills of this medication hydrochlorothiazide 12.5 mg tablet RxNorm: 130635 1 Tablet(s) PO QAM 019 2019 Inactive levmetamfetamine 50 mg nasal inhaler RxNorm: 1 Unit(s) NASAL Q3-4H Do not use more than every 3 hours or 8 times/24hours 019 2021 Inactive Please do not auto refill. This refill negates all other refills of this medication Ventolin HFA 90 mcg/actuation aerosol inhaler RxNorm: 230715 2 Puff(s) INH QID 019 2018 Inactive Please do not fill early. Please do not auto refill. This refill negates all other refills of this medication Singulair 10 mg tablet RxNorm: 672525 1 Tablet(s) PO daily 019 2019 Inactive This refill negates all other refills of this medication cetirizine 10 mg tablet RxNorm: 3210098 1 Tablet(s) PO daily 019 2019 Inactive This refill negates all other refills of this medication. Please do not auto refill levothyroxine 50 mcg tablet RxNorm: 570698 1 Tablet(s) PO daily 019 2019 Inactive This refill negates all other refills of this medication diclofenac sodium 75 mg tablet,delayed release RxNorm: 836880 1 Tablet(s) PO BID 019 2019 Inactive This refill negates all other refills of this medication ranitidine 150 mg tablet RxNorm: 683180 1 Tablet(s) PO BID 019 2018 Inactive This refill negates all other refills of this medication Calcium 600-D3 Plus (mag-zinc) 600 mg calcium-800 unit-50 mg tablet RxNorm: 1 Tablet(s) PO daily take an additonal tablet for itching. 2018 Inactive This refill negates all other refills of this medication albuterol sulfate 2.5 mg/3 mL (0.083 %) solution for nebulization RxNorm: 434841 1 Vial INH QID 2018 Inactive 60/box. This refill negates all other refills of this medication. Please do not fill early. Please do not auto refill. lisinopril 2.5 mg tablet RxNorm: 094306 1 Tablet(s) PO daily 019 2019 Inactive gabapentin 300 mg capsule RxNorm: 688069 1 Capsule(s) PO TID 019 2019 Inactive atorvastatin 20 mg tablet RxNorm: 170890 1 Tablet(s) PO QHS 019 2018 Inactive This refill negates all other refills of this medication TRUEplus Lancets 30 gauge RxNorm: 1 Lancets Miscellaneous QAM 019 2018 Inactive 100/box gabapentin 300 mg capsule RxNorm: 805334 1 Capsule(s) PO TID 2018 Inactive Flmarksaranbree Complete (iron) 18 mg iron chewable tablet RxNorm: 1 Tablet(s) PO daily 019 2021 Inactive This refill negates all other refills of this medication gabapentin 300 mg capsule RxNorm: 695710 1 Capsule(s) PO TID as needed 2018 Inactive True Metrix Glucose Test Strip RxNorm: 1 Test Strips Miscellaneous QAM 2018 Inactive 100/container Alcohol Prep Pads RxNorm: 074807 1 Patch TOP QAM 2018 Inactive TRUEplus Lancets 30 gauge RxNorm: 1 Lancets Miscellaneous QAM 2018 Inactive 100/box lisinopril 2.5 mg tablet RxNorm: 451530 1 Tablet(s) PO daily 2018 Inactive ranitidine 150 mg tablet RxNorm: 067913 1 Tablet(s) PO BID 2018 Inactive This refill negates all other refills of this medication albuterol sulfate 2.5 mg/3 mL (0.083 %) solution for nebulization RxNorm: 881331 1 Vial INH QID 2018 Inactive 60/box. [...] this medication gabapentin 300 mg capsule RxNorm: 509778 1 Capsule(s) PO TID as needed 019 2018 Inactive atorvastatin 20 mg tablet RxNorm: 963275 1 Tablet(s) PO QHS 019 2018 Inactive This refill negates all other refills of this medication trazodone 50 mg tablet RxNorm: 331819 1 Tablet(s) PO QHS 019 2018 Inactive This refill negates all other refills of this medication Ventolin HFA 90 mcg/actuation aerosol inhaler RxNorm: 444404 2 Puff(s) INH QID 019 2018 Inactive Please do not fill early. Please do not auto refill. This refill negates all other refills of this medication Calcium 600-D3 Plus 600 mg calcium-800 unit-50 mg tablet RxNorm: 1 Tablet(s) PO daily take an additonal tablet for itching. 019 2018 Inactive This refill negates all other refills of this medication Singulair 10 mg tablet RxNorm: 554996 1 Tablet(s) PO daily 019 2018 Inactive This refill negates all other refills of this medication buspirone 7.5 mg tablet RxNorm: 853099 1 Tablet(s) PO BID 019 2018 Inactive This refill negates all other refills of this medication diclofenac sodium 75 mg tablet,delayed release RxNorm: 706188 1 Tablet(s) PO BID 019 2018 Inactive This refill negates all other refills of this medication hydrochlorothiazide 12.5 mg tablet RxNorm: 367883 1 Tablet(s) PO QAM 019 2018 Inactive metoprolol succinate ER 50 mg tablet,extended release 24 hr RxNorm: 800009 1 Tablet(s) PO daily 019 2018 Inactive This refill negates all other refills of this medication levothyroxine 50 mcg tablet RxNorm: 231868 1 Tablet(s) PO daily 019 2018 Inactive This refill negates all other refills of this medication cetirizine 10 mg tablet RxNorm: 7722188 1 Tablet(s) PO daily 019 2018 Inactive This refill negates all other refills of this medication. Please do not auto refill Flintstones Complete (iron) 18 mg iron chewable tablet RxNorm: 1 Tablet(s) PO daily 2018 Inactive This refill negates all other refills of this medication buspirone 7.5 mg tablet RxNorm: 435156 1 Tablet(s) PO BID 2018 Inactive cetirizine 10 mg tablet RxNorm: 2666496 1 Tablet(s) PO daily 2018 Inactive Guaiasorb DM 10 mg-100 mg/5 mL oral liquid RxNorm: 599012 10 Milliliter(s) PO As needed every 4 hr 2018 Inactive Vicks Vaporub 4.7 %-1.2 %-2.6 % topical ointment RxNorm: 3305828 1 Application TOP TID 2018 Inactive levmetamfetamine 50 mg nasal inhaler RxNorm: 1 Unit(s) NASAL Q3-4H 2017 Inactive sertraline 50 mg tablet RxNorm: 790327 1 Tablet(s) PO daily 2018 Inactive Please note dose trazodone 50 mg tablet RxNorm: 807900 1 Tablet(s) PO QHS 2018 Inactive sertraline 50 mg tablet RxNorm: 018820 1 Tablet(s) PO daily 2017 Inactive amoxicillin 500 mg tablet RxNorm: 540127 1 Tablet(s) PO Q12H 2017 Inactive albuterol sulfate 2.5 mg/3 mL (0.083 %) solution for nebulization RxNorm: 792321 1 Vial INH QID 2018 Inactive 60/box. Please do not fill early. Please do not auto refill. Prozac 10 mg capsule RxNorm: 919671 1 Capsule(s) PO daily 2017 Inactive buspirone 7.5 mg tablet RxNorm: 604113 1 Tablet(s) PO BID 018 2018 Inactive gabapentin 300 mg capsule RxNorm: 299839 1 Capsule(s) PO TID as needed 2018 Inactive hydrochlorothiazide 12.5 mg tablet RxNorm: 200793 1 Tablet(s) PO QAM 018 2018 Inactive ranitidine 150 mg tablet RxNorm: 937793 1 Tablet(s) PO BID 2018 Inactive Macrobid 100 mg capsule RxNorm: 828469 1 Capsule(s) PO Q12H 018 2017 Inactive Singulair 10 mg tablet RxNorm: 122811 1 Tablet(s) PO daily 018 2018 Inactive Ventolin HFA 90 mcg/actuation aerosol inhaler RxNorm: 3793157 2 Puff(s) INH QID 018 2018 Inactive Singulair 10 mg tablet RxNorm: 869349 1 Tablet(s) PO daily 018 2017 Inactive buspirone 7.5 mg tablet RxNorm: 442077 1 Tablet(s) PO BID 018 2017 Inactive Prozac 10 mg capsule RxNorm: 353154 1 Capsule(s) PO daily 018 2017 Inactive diclofenac sodium 75 mg tablet,delayed release RxNorm: 813038 1 Tablet(s) PO BID 018 2017 Inactive lisinopril 2.5 mg tablet RxNorm: 618920 1 Tablet(s) PO daily 018 2017 Inactive Neilmed Pediatric Sinus Rinse Refill packet RxNorm: 1 Unit Dose NASAL PRN 018 2021 Inactive metoprolol succinate ER 50 mg tablet,extended release 24 hr RxNorm: 152556 1 Tablet(s) PO daily 018 2017 Inactive levothyroxine 50 mcg tablet RxNorm: 238809 1 Tablet(s) PO daily 018 2017 Inactive TRUEplus Lancets 30 gauge RxNorm: 1 Lancets Miscellaneous QAM 018 2017 Inactive 100/box Ventolin HFA 90 mcg/actuation aerosol inhaler RxNorm: 647430 2 Puff(s) INH QID 018 2017 Inactive Aleve 220 mg capsule RxNorm: 1347809 1 Capsule(s) PO BID 018 2018 Inactive ranitidine 150 mg tablet RxNorm: 588531 1 Tablet(s) PO BID 018 2017 Inactive gabapentin 300 mg capsule RxNorm: 537877 1 Capsule(s) PO TID as needed 018 2017 Inactive atorvastatin 20 mg tablet RxNorm: 298347 1 Tablet(s) PO QHS 018 2017 Inactive True Metrix Glucose Test Strip RxNorm: 1 Test Strips Miscellaneous QAM 018 2017 Inactive 50/container Calcium 600-D3 Plus 600 mg calcium-800 unit-50 mg tablet RxNorm: 1 Tablet(s) PO daily take an additonal tablet for itching. 018 2017 Inactive hydrochlorothiazide 12.5 mg tablet RxNorm: 852806 1 Tablet(s) PO QAM 018 2017 Inactive Flintstones Complete (iron) 18 mg iron chewable tablet RxNorm: 1 Tablet(s) PO daily 018 2017 Inactive True Metrix Glucose Meter RxNorm: miscellaneous 019 2018 Inactive sertraline 50 mg tablet RxNorm: 062987 1 Tablet(s) PO daily 020 2019 Inactive loperamide 2 mg tablet RxNorm: 290790 oral 019 2018 Inactive d-mannose oral powder RxNorm: PO 018 2021 Inactive Symbicort 160 mcg-4.5 mcg/actuation HFA aerosol inhaler RxNorm: 6079107 2 Puff(s) INH BID 019 2018 Inactive Medication Administered No Medication Administered data Results Observation Observation Code Item Item Code Result Date Service Location [id number] BIN 4548-4 Glyco HGB A1C 89443-4 5.8 % [facility] [address] [place] [address] 70860 [id number] BIN 4548-4 eAG 08098-2 120 mg/dL [facility] [address] [place] [address] 42516 TSH 66442 TSH 61414-4 2.130 uIU/mL [facility] [address] [place] [address] 86565 CHEM 14 (METABOLIC PANEL) 54260 Glucose 2345-7 73 mg/dL [facility] [address] [place] [address] 35152 CHEM 14 (METABOLIC PANEL) 04129 BUN 3094-0 13 mg/dL [facility] [address] [place] [address] 15344 CHEM 14 (METABOLIC PANEL) 74991 Creatinine 2160-0 0.8 mg/dL [facility] [address] [place] [address] 41063 CHEM 14 (METABOLIC PANEL) 86283 BUN/Creat Ratio 3097-3 15.7 [facility] [address] [place] [address] 22956 CHEM 14 (METABOLIC PANEL) 94206 GFR Estimated 19493-2 94 mL/min/1.7 3m2 [facility] [address] [place] [address] 66031 CHEM 14 (METABOLIC PANEL) 38977 Sodium 2951-2 141 mmol/L [facility] [address] [place] [address] 49132 CHEM 14 (METABOLIC PANEL) 25275 Potassium 2823-3 4.2 mmol/L [facility] [address] [place] [address] 78089 CHEM 14 (METABOLIC PANEL) 74003 Chloride 2075-0 102 mmol/L [facility] [address] [place] [address] 22288 CHEM 14 (METABOLIC PANEL) 55634 Total CO2 2028-9 30 mmol/L [facility] [address] [place] [address] 75048 CHEM 14 (METABOLIC PANEL) 36985 Anion Gap 1863-0 13.2 mEq/L [facility] [address] [place], [place] [address]ID [address] CHEM 14 (METABOLIC PANEL) 92093 Calculated Serum Osmolality 63267-8 291 mOsm/kg [facility] [address] [place] [address] CHEM 14 (METABOLIC PANEL) 13857 Albumin 38115-6 3.7 g/dL [facility] [address] [place] [address] CHEM 14 (METABOLIC PANEL) 27135 Total Protein 2885-2 7.2 g/dL [facility] [address] [place] [address] CHEM 14 (METABOLIC PANEL) 77195 Globulin 2336-6 3.5 g/dL [facility] [address] [place] [address] CHEM 14 (METABOLIC PANEL) 40377 Albumin/Globulin Ratio 1759-0 1.1 [facility] [address] [place] [address] CHEM 14 (METABOLIC PANEL) 24574 ALK PHOS 6768-6 74.00 U/L [facility] [address] [place] [address] CHEM 14 (METABOLIC PANEL) 60340 SGOT/AST 1920-8 15 U/L [facility] [address] [place] [address] CHEM 14 (METABOLIC PANEL) 84243 SGPT/ALT 1743-4 35 U/L [facility] [address] [place] [address] CHEM 14 (METABOLIC PANEL) 73969 Total Bilirubin 1975-2 0.4 mg/dL [facility] [address] [place] [address] 18757 CHEM 14 (METABOLIC PANEL) 58022 Calcium 88653-3 9.6 mg/dL [facility] [address] [place] [address] 27946 CHEM 14 (METABOLIC PANEL) 08644 Corrected Calcium 81972-7 10.0 mg/dL [facility] [address] [place] [address] 92150 MICROALBUMIN (URINE) 32314 Microalbumin 95534-2 0.6 mg/dL [facility] [address] [place] [address] 69968 MICROALBUMIN (URINE) 24516 Microalbumin/Cre atinine Ratio 16204-3 7 MCG/MGCREA T 09/22/2 022 [facility] [address] [place] [address] MICROALBUMIN (URINE) 26885 Urine Creatinine 2161-8 84.10 mg/dL 022 [facility] [address] [place] [address] Procedures Procedure Codes Date Glucose Blood Test CPT-4: 53017 06/23/2022 Siler Fany Assessment CPT-4: DSWA 04/02 Patient Health [...] CPT-4: VACP Fall Risk Assessment SNOMED CT: 04942893 4 CPT-4: DFRA 01/13/2021 Siler Fany Assessment CPT-4: DSWA 12/01 Urinalysis, dip stick CPT-4: 02802 09/24/2020 Patient Health Questionnaire CPT-4: DPHQ Electrocardiogram CPT-4: 44054 05/14/2020 Tobacco Assessment/Screening CPT-4: TCA Fall Risk Assessment SNOMED CT: 30572955 4 CPT-4: DFRA 01/01/2020 Functional Assessment CPT-4: DFA 01/01/2020 Siler Fany Assessment CPT-4: DSWA 11/04 Patient Health Questionnaire CPT-4: DPHQ Siler Fany Assessment CPT-4: DSWA 10/03 Hypertension CPT-4: HTN 10/17/2019 Fall Risk Assessment SNOMED CT: 67734760 4 CPT-4: DFRA 09/19/2019 Functional Assessment CPT-4: DFA 09/19/2019 Urinalysis, dip stick CPT-4: 84245 06/21/2019 Tobacco Assessment/Screening CPT-4: TCA Patient Health Questionnaire CPT-4: DPHQ AHA/REBECCA Classification Assessment CPT-4: DAHA 04/25/2019 Controlled Substance Report CPT-4: CTRSU 04/03 Urinalysis, dip stick CPT-4: 96792 03/28/2019 Urinalysis, dip stick CPT-4: 29127 03/28/2019 X9C-Qdrysrchyawdeua CPT-4: 44406 Unknown B9A-Piskjrjlzyymayx CPT-4: 60064 Unknown B6T-Lobxckaymqvsvnq CPT-4: 85933 Unknown M3O-Bdikoqhdywjghyu CPT-4: 05650 Unknown F8N-Mctxcxnyitiwghw CPT-4: 04381 Unknown U3X-Tsatovplfxraupt CPT-4: 71054 Unknown D5I-Btjcwwlwillhlxg CPT-4: 34178 Unknown S6H-Kyiffyjmatxamlm CPT-4: 82955 Unknown J5N-Wkkwgrnllxnqqzo CPT-4: 58824 Unknown P5W-Xgldubqvnfggump CPT-4: 42552 Unknown Gynecology Referral SNOMED CT: 925769200 CPT-4: R14 Unknown Vital Signs Date Vital 06/23/2022 Blood Pressure 1: 130/78 Code: 8480-6 BMI: 55.2 Code: 28792-3 Heart Rate 1: 75 bpm Height: 4'11 Code: 8302-2 Random Blood Sugar: 114/NaN Respiratory Rate: 18 bpm SpO2: 98% Temperature: 36.3 (C) / 97.3 (F) Weight: 273 lbs 3 oz Code: 50448-8 Reason For Visit Reason For Visit Effective Dates Notes diabetes mellitus 06/23/2022 hypertension 06/23/2022 weight gain/obesity 06/23/2022 Interim health update 06/23/2022 Encounters Encounter Performer Location Location Address Codes Magdi e ([id number]) HOME VISIT EST PATIENT Diagnosis: Type 2 diabetes mellitus with peripheral neuropathy[ICD10: E11.42] Diagnosis: Hypertensive heart disease[ICD10: I11.9] Diagnosis: Major depression, recurrent[ICD10: F33.9] Diagnosis: Hypothyroid[ICD10: E03.9] Diagnosis: Obstructive sleep apnea (adult) (pediatric)[ICD10: G47.33] Diagnosis: Adult BMI 50.0-59.9 kg/sq m[ICD10: Z68.43] Diagnosis: Influenza vaccine refused[ICD10: Z28.21] Anna Culver [place] [facility] [address] [facility] [address] [place] [address] CPT-4: 35506 06/23/2022 Plan of Care Planned Activity Notes Codes Status Date Visit Plan: I10 Essential (prima ry) hypertension, BP stable, will continue lisinopril, HCTZ 07/02/20 Echo: EF 60%, mild conc. LVH 05/14/20 EKG: NSR 05/14/20 Noct. Pulse Ox.: 7 min. < 89% SpO2 continue with [employer] [facility] Josh Simon MD will check labs this visit G47.33 Obstructive sleep apnea (adult), J45.909 Asthma breathing stable CPAP use continues-was changed to nasal pillow mask at last pulmonogy visit, patient feels this has been helpful continue utilization of Symbicort, albuterol via neb. or MDI q 4 hrs. prn dyspnea, continue with [employer] Jose BOWMAN last visit 05/31/2022-visit note reviewed E11.42 Type 2 diabetes mellitus with peripheral neuropathy, Z68.43 Adult BMI 50.0-59.9 kg/sq m stable glucose monitor range 103-156 - testing bid continue Ozempic 1mg per week and gabapentin 11/02/21 HgbA1C 5.6, GFR >100 continue with Kerrie Pandya OD at [facility] (06/30/21) discussed apps on her phone that [...] has been replaced with Rexult[employer] continue with [facility] Obrien in [place] Z28.21-V64.06 Influenza vaccine refused refused influenza vaccine, [...] 5 times per day continue with Urologist 06/23/2022 Patient Education: Weight Gain Completed 06/23/2022 Patient Education: Diabetes Complete d 06/23/2022 Patient Education: Patient Medication Summary Completed 06/23/2022 Patient Education: Hypertension Completed 06/23/2022 Appointment: Chivo Bishop WPtel: [address] [place] [address] E410 04/19/2022 Appointment: Chivo Bishop WPtel: [address] [place] [address] E410 02/11/2022 Appointment: Mikey Nair WPtel: [address] [facility] b [id number] E410 12/03/2021 Appointment: Chivo Bishop WPtel: [address] [place] [address] E410 11/02/2021 Appointment: Chivo Bishop WPtel: [address] [place] [address] E410 10/07/2021 Appointment: Chivo Bishop WPtel: [address] [place] [address] ETV 09/10/2021 Appointment: Chivo Bishop WPtel: [address] [place] [address] ETV 08/13/2021 Appointment: Chivo Bishop WPtel: [address] [place] [address] ETV 07/06/2021 Appointment: Chivo Bishop WPtel: [address] [place] [address] PHTV 06/10/2021 Appointment: Anna Culver WPtel: [address] [place] [address] ETV 06/02/2021 Appointment: Chivo Bishop WPtel: [address] [place] [address] ETV 05/20/2021 Appointment: Anna Culver WPtel: [address] [place] [address] ETV 04/28/2021 Appointment: Chivo Bishop WPtel: [address] [place] [address] ETV 04/15/2021 Appointment: Anna Culver WPtel: [address] [place] [address] E410 04/01/2021 Appointment: Anna Culver WPtel: [address] [place] [address] ETV 03/24/2021 Appointment: Anna Culver WPtel: [address] [place] [address] ETV 03/13/2021 Appointment: Anna Culver WPtel: [address] [place] [address] E410 02/11/2021 Appointment: Chivo Bishop WPtel: [address] [place] [address] E410 01/29/2021 Appointment: Anna Culver WPtel: [address] [place] [address] ETV 01/13/2021 Appointment: Anna Culver WPtel: [address] [place] [address] E410 12/17/2020 Appointment: Chivo Bishop WPtel: [address] [place] [address] ETV 11/28/2020 Appointment: Anna Culver WPtel: [address] [place] [address] ETV 11/24/2020 Appointment: Anna Culver WPtel: [address] [place] [address] E410 10/29/2020 Appointment: Anna Culver WPtel: [address] [place] [address] E410 09/24/2020 Appointment: Anna Culver WPtel: [address] [place] [address] ETV 08/26/2020 Appointment: Anna Culver WPtel: [address] [place] [address] ETV 08/19/2020 Appointment: Anna Culver WPtel: [address] [place] [address] ETV 07/22/2020 Appointment: Anna Culver WPtel: [address] [address] [place] ETV 07/08/2020 Appointment: Gianna Birmingham: [address] [facility] 100 [id number] [place] ECHO 07/02/2020 Appointment: Anna Culver WPtel: [phone] [place] [address] E452 06/11/2020 Appointment: Anna Culver WPtel: [phone] [place] [address] E452 05/14/2020 Appointment: Anna Culver WPtel: [address] [place] [address] E452 04/17/2020 Appointment: Anna Culver WPtel: [address] [place] [address] E452 03/21/2020 Appointment: Anna Culver WPtel: [address] [place] [address] E452 02/14/2020 Appointment: Anna Culver WPtel: [address] [place] [address] E452 01/24/2020 Appointment: Anna Culver WPtel: [address] [place] [address] E452 01/01/2020 Appointment: Anna Culver WPtel: [address] [place] [address] [place] E452 11/28/2019 Appointment: Anna Culver WPtel: [address] [place] [address] [place] E452 10/17/2019 Appointment: Anna Culver WPtel: [phone] [place] [address] [place] E452 09/19/2019 Appointment: Sudha Hernadez WPtel: [address] [place] [address] [id number] E452 07/04/2019 Appointment: Sudha Hernadez WPtel: [address] [facility] [id number] E452 06/21/2019 Appointment: Charlene Oropeza WPtel: [address] [place] [address] [id number] E452 05/24/2019 Appointment: Mallory Delgado E452 04/27/2019 Appointment: Charlene Oropeza WPtel: [address] [place] [address] [id number] E452 04/25/2019 Appointment: Rasta Palafox WPtel: [address] [place] [address] [id number] E452 03/28/2019 Appointment: Rasta Palafox WPtel: [address] [place] [address] [id number] E452 02/14/2019 Appointment: Rasta Palafox WPtel: [address] [place] [address] [id number] E452 01/31/2019 Appointment: Rasta Palafox WPtel: [address] [place] [address] [id number] E420 12/27/2018 Referral: Pending Gynecology Referral Information Referral Processed Referral: Pending Pulmonology Referral Information Referral Processed Referral: Pending Psychiatry Referral Information Referral Initiated Referral: Pending Respiratory Services Referral Information Referral Initiated Referral: Pending Ophthalmology Referral Information Referral Initiated Referral: [facility] WPtel: [address] Gastroenterology Teacher placed a call out to the patient to notify her that it has been recommended that she be seen by a urologist. Patient agreed to be seen, does not have a provider of choice and no transportation issues. Gastroenterology Teacher faxed referral and clinical notes to [facility] in [place], [place] near the patient's home. Patient to [...] seen and prefers a provider in the [place] or [place] area. Gastroenterology Teacher placed a call out to everyone listed in the area and the only location that was able to accept the patient's insurance was [place] [address] [place] [address] and spoke with Maylin. Maylin asked that the patient's referral, face sheet and visit notes be faxed to . Gastroenterology Teacher faxed over requested documents. Patient appointment confirmation letter generated and mailed to her home address. Patient to call to schedule an appointment. Processed Referral: [facility] WPtel: [address] [place] [address] Patient notified that it has been advised that she be seen by Neurology. Patient agreed to be seen and prefers to be seen by a provider in the [place], [place] area. Patient denies any concerns with transportation, and prefers to schedule her own appointment. Gastroenterology Teacher placed a call out to [facility] and spoke with Neeraj [...] Referral Information Referral Initiated Instructions Comment Date will stratify as moderate ri sk rising and plan follow up visit in 4 weeks. Patient aware and agreeable with plan . I10 Essential (primary) hypertension, BP stable, will continue lisinopril, HCTZ; 07/02/20 Echo: EF 60%, mild conc. LVH; 05/14/20 EKG: NSR; 05/14/20 Noct. Pulse Ox.: 7 min. < 89% SpO2; continue with [employer] Josh Simon MD; will check labs this visit G47.33 Obstructive sleep apnea (adult), J45.909 Asthma breathing stable CPAP use continues-was changed to nasal pillow mask at last pulmonogy visit, patient feels this has been helpful continue utilization of Symbicort, albuterol via neb. or MDI q 4 hrs. prn dyspnea, continue with [employer] Jose BOWMAN; last visit 05/31/2022-visit note reviewed E11.42 Type 2 diabetes mellitus with peripheral neuropathy, Z68.43 Adult BMI 50.0-59.9 kg/sq m stable glucose monitor range 103-156 - testing bid; continue Ozempic 1mg per week and gabapentin; 11/02/21 HgbA1C 5.6, GFR >100; continue with Kerrie Pandya OD at [facility] (06/30/21); discussed apps on her phone that [...] has been replaced with [employer]ult[employer] continue with [facility] in [place]; Z28.21-V64.06 Influenza vaccine refused refused influenza vaccine, discussed benefits, remains resistant, immunization record updated ---- Below historical items not addressed this visit: Z00.-V70.9 (Z00.00-V70.9) Encounter for general adult medical examination [...]
--- OUTSIDE RECORDS SUMMARY | 2023-12-07 02:21 | XMS_ITS | CCD ---
Author Name Leena Culver NP Address [address] [place] [address] [place] [id number] Phone Organization [facility] Phone Care Team Providers Care Forestry Technician Name Role Phone Anna Culver NP Primary Care Provider Unav ailable Unavailable Chronic Care Management Unavaila ble Summary Purpose DataExchange Insurance Providers Payer name Policy type / Coverage type Covered libertarian ID Effective Begin Date Effective End Date SUKI MAYO [id number] Unknown Unknown Family history Mother Diagnosis Age [...] Unknown Disability 05/31/[address]: 185177026 Has never s moked or chewed tobacco 05/31/[address]: 911897154 Never drinks alco hol 05/31/2018 Has the patient ever used illegal drugs? Unknown Has never used illegal drugs 05/31/2018 DNR Order/ Advanced Directive Unknown Full Code 05/31/2018 Allergies, Adverse Reactions, Alerts Substance Reaction Codes Entered Date Inactivated Date Status OxyContin itch, RxNorm: 467586 01/13/2021 No Inactive Da te Active *No [...] neuropathy ICD-10: E11.42 ICD-9: 250.60 11/28/2019 Active Ankle sprain ICD-10: S93.409A ICD-9: 845.00 07/31/2022 Active Adult BMI 50.0-59.9 kg/sq m ICD-10: Z68. 43 ICD-9: V85.43 05/30/2018 Active Hypertensive heart disease ICD-10: I11.9 ICD-9: 402.90 12/03/2021 Active Hypothyroid ICD-10: E03.9 ICD-9: 244.9 09/05/2018 Active Influenza vaccine refused ICD-10: Z28.21 ICD-9: V64.06 06/23/2022 Active Major depression, recurrent ICD-10: F33. 9 ICD-9: 296.30 06/23/2022 Active Abscess ICD-10: L02.91 ICD-9: 682.9 [...] ICD-10: E78. 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 group home (current) use of non-steroidal [...] 784.0 10/03/2018 Inactive Other half-way (current) dr edith therapy ICD-10: Z79.899 ICD-9: V58.69 04/25/2019 Inactive Type 2 diabetes mellitus wit hout complications ICD-10: E11.9 ICD-9: 250.00 10/03/2018 Inactive Wheezing ICD-10: R06.2 ICD-9: 786.07 08/08/2018 Inactive Abnormal urine finding ICD-10: R82.90 ICD-9: 791.9 09/24/2020 Resolved Abrasion of toe ICD-10: S90.416A ICD-9: 917.0 02/14/2020 Resolved [place] eye ICD-10: H10.029 ICD-9: 372.03 12/29/2019 Resolved [...] (18 mg/3 mL) subcutaneous pen injector RxNorm: 902688 Inject 0.6-1.8 Milligram(s) Subcutaneous once a week Inject 0.6mg/0.1ml week one, 1.2mg/0.2ml week two, 1.8/0.3ml weekly thereafter 022 2021 Inactive ibuprofen 800 mg tablet RxNorm: 123674 Take 1 Tablet(s) Oral Q8H as needed for pain take with food No Stop Date Active Ozempic 1 mg/dose (4 mg/3 mL) subcutaneous pen injector RxNorm: 5807990 Take 1 Unit Dose Subcutaneous QWeek Wednesday 09/21/2 022 09/21/ 2022 Inactive lisinopril 2.5 mg tablet RxNorm: 807857 Take 1 Tablet(s) Oral every day 022 2021 Inactive lisinopril 2.5 mg tablet RxNorm: 984182 Take 1 Tablet(s) Oral every day 022 2022 Inactive hydrochlorothiazide 25 mg tablet RxNorm: 322460 Take 1 Tablet(s) Oral every day 022 2021 Inactive Ozempic 1 mg/dose (4 mg/3 mL) subcutaneous pen injector RxNorm: 6770661 Take 1 Unit Dose Subcutaneous QWeek 2021 Inactive famotidine 20 mg tablet RxNorm: 979592 Take 1 Tablet(s) Oral every morning 022 2021 Inactive levothyroxine 50 mcg tablet RxNorm: 652480 Take 1 Tablet(s) Oral every day 2021 Inactive atorvastatin 20 mg tablet RxNorm: 640984 Take 1 Tablet(s) Oral every night at bedtime 2021 Inactive Cleocin T 1 % lotion RxNorm: 230197 Take 2 Gram(s) Topical every day 022 2021 Inactive Cleocin T 1 % lotion RxNorm: 873231 Take 2 Gram(s) Topical every day 022 2021 Inactive Ozempic 1 mg/dose (4 mg/3 mL) subcutaneous pen injector RxNorm: 8954275 Take 1 Unit Dose Subcutaneous QWeek 022 2021 Inactive Ozempic 0.25 mg or 0.5 mg (2 mg/1.5 mL) subcutaneous pen injector RxNorm: 6370106 INJECT 0.5 MGS SUBCUTANEOUSLY EVERY WEEK 022 2021 Inactive omeprazole 20 mg capsule,delayed release RxNorm: 659483 Take 1 Capsule(s) Oral every evening 022 2021 Inactive levothyroxine 50 mcg tablet RxNorm: 316540 Take 1 Tablet(s) Oral every day 05/23/2021 Inactive atorvastatin 20 mg tablet RxNorm: 609417 Take 1 Tablet(s) Oral every night at bedtime 2021 Inactive This refill negates all other refills of this medication lisinopril 2.5 mg tablet RxNorm: 905930 Take 1 Tablet(s) Oral every day 2021 Inactive gabapentin 300 mg capsule RxNorm: 561552 Take 1 Capsule(s) Oral three times a day 2021 Inactive montelukast 10 mg tablet RxNorm: 435724 Take 1 Tablet(s) Oral every day 2021 Inactive cholecalciferol (vitamin D3) 50 mcg (2,000 unit) tablet RxNorm: 443966 Take 1 Tablet(s) Oral every day 2022 Inactive Myrbetriq 50 mg tablet,extended release RxNorm: 6284492 1 Tablet(s) Oral every day No Stop Date Active Ozempic 0.25 mg or 0.5 mg (2 mg/1.5 mL) subcutaneous pen injector RxNorm: 8332164 inject 0.5 milligrams subcutaneously every week 2021 Inactive Ozempic 0.25 mg or 0.5 mg (2 mg/1.5 mL) subcutaneous pen injector RxNorm: 4423906 Take 0.5 Capsule(s) Injection once a week 2021 Inactive omeprazole 20 mg capsule,delayed release RxNorm: 481464 Take 1 Capsule(s) Oral every evening 2020 Inactive Ozempic 0.25 mg or 0.5 mg (2 mg/1.5 mL) subcutaneous pen injector RxNorm: 1015720 Take 0.25 Milligram(s) Subcutaneous once a week 2021 Inactive Easy Touch Alcohol Prep Pads RxNorm: 203140 USE DIRECTED EACH MORNING 2021 Inactive Probiotic 10 billion cell capsule RxNorm: 4563493 Take 1 Capsule(s) Oral every day 2021 Inactive levothyroxine 50 mcg tablet RxNorm: 964642 Take 1 Tablet(s) Oral every day 2020 Inactive Acid Infection Control Nurse (famotidine) 20 mg tablet RxNorm: 358805 Take 1 Tablet(s) Oral every morning 021 2020 Inactive Heartburn Relief (famotidine) 10 mg tablet RxNorm: 183813 Take 1 Tablet(s) Oral QAM 021 2020 Inactive levothyroxine 50 mcg tablet RxNorm: 474508 Take 1 Tablet(s) Oral QD 2020 Inactive Singulair 10 mg tablet RxNorm: 222274 TAKE (1) TABLET BY MOUTH DAILY 2020 Inactive metformin 1,000 mg tablet RxNorm: 952015 1 Tablet(s) Oral two times a day 2021 Inactive lisinopril 2.5 mg tablet RxNorm: 828857 Take 1 Tablet(s) Oral every day 021 2020 Inactive hydrochlorothiazide 25 mg tablet RxNorm: 651822 Take 1 Tablet(s) Oral every day 021 2020 Inactive ondansetron 4 mg disintegrating tablet RxNorm: 823320 1 Tablet(s) Oral two times a day 021 2020 Inactive Sudafed 12 Hour 120 mg tablet,extended release RxNorm: 7243298 TAKE 1 TABLET BY MOUTH EVERY 12 HOURS NEEDED 2021 Inactive Heartburn Relief (famotidine) 10 mg tablet RxNorm: 195828 Take 1 Tablet(s) Oral every morning 021 2020 Inactive omeprazole 20 mg capsule,delayed release RxNorm: 273733 1 Capsule(s) Oral every evening 021 2020 Inactive sertraline 100 mg tablet RxNorm: 939065 2 Tablet(s) Oral every day 021 2020 Inactive levothyroxine 50 mcg tablet RxNorm: 351431 TAKE (1) TABLET BY MOUTH DAILY 021 2020 Inactive metformin 500 mg tablet RxNorm: 403910 1 Tablet(s) Oral two times a day take with 500mg to equal 1000mg 021 2020 Inactive gabapentin 300 mg capsule RxNorm: 467725 TAKE 1 CAPSULE BY MOUTH THREE TIMES A DAY 021 2020 Inactive lisinopril 2.5 mg tablet RxNorm: 548212 TAKE 1 TABLET BY MOUTH DAILY 021 2020 Inactive gabapentin 300 mg capsule RxNorm: 478889 TAKE 1 CAPSULE BY MOUTH THREE TIMES A DAY 021 2020 Inactive Singulair 10 mg tablet RxNorm: 946307 TAKE (1) TABLET BY MOUTH DAILY 2020 Inactive metformin 1,000 mg tablet RxNorm: 382561 1 Tablet(s) Oral two times a day 021 2020 Inactive atorvastatin 40 mg tablet RxNorm: 221292 1 Tablet(s) Oral every day 021 2020 Inactive omeprazole 20 mg capsule,delayed release RxNorm: 189820 1 Capsule(s) Oral every evening 021 2020 Inactive famotidine 10 mg tablet RxNorm: 477551 1 Tablet(s) Oral every morning 021 2020 Inactive Alcohol Prep Pads RxNorm: 230194 USE EACH MORNING 021 2020 Inactive omeprazole 20 mg capsule,delayed release RxNorm: 611854 1 Capsule(s) Oral two times a day 021 2021 Inactive omeprazole 20 mg capsule,delayed release RxNorm: 550624 TAKE 1 CAPSULE BY MOUTH EVERY DAY 021 2021 Inactive Macrobid 100 mg capsule RxNorm: 813687 1 Capsule(s) Oral every 12 hours with food 2020 Inactive omeprazole 20 mg capsule,delayed release RxNorm: 121660 1 Capsule(s) Oral two times a day 2021 Inactive metformin 1,000 mg tablet RxNorm: 423256 1 Tablet(s) Oral two times a day 2020 Inactive start on September 11, 2020 metformin 500 mg tablet RxNorm: 092880 1 Tablet(s) Oral two times a day take with 500mg to equal 1000mg 2019 Inactive gabapentin 300 mg capsule RxNorm: 511828 TAKE 1 CAPSULE BY MOUTH THREE TIMES DAILY 2020 Inactive cetirizine 10 mg tablet RxNorm: 6293055 TAKE (1) TABLET BY MOUTH DAILY 2020 Inactive metformin 500 mg tablet RxNorm: 663198 1 Tablet(s) Oral two times a day 2019 Inactive loperamide 2 mg tablet RxNorm: 941487 1 Tablet(s) Oral as needed take one tablet after each loose stool, maximum of 8 tablets in 24 hours 2021 Inactive Sudafed 12 Hour 120 mg tablet,extended release RxNorm: 9816345 TAKE 1 TABLET BY MOUTH EVERY 12 HOURS NEEDED 2019 Inactive hydrochlorothiazide 25 mg tablet RxNorm: 886116 TAKE (1) TABLET BY MOUTH EVERY DAY 2019 Inactive omeprazole 20 mg capsule,delayed release RxNorm: 823468 TAKE 1 CAPSULE BY MOUTH EVERY DAY 2020 Inactive metformin 500 mg tablet RxNorm: 058040 1 Tablet(s) Oral every day 2019 Inactive True Metrix Glucose Test Strip RxNorm: 1 Test Strips Miscellaneous two times a day as needed No Stop Date Active metformin 500 mg tablet RxNorm: 857811 1 Tablet(s) Oral every day 020 2019 Inactive diclofenac sodium 75 mg tablet,delayed release RxNorm: 288772 1 Tablet(s) PO BID 2021 Inactive This refill negates all other refills of this medication Sudafed 12 Hour 120 mg tablet,extended release RxNorm: 5309293 TAKE 1 TABLET BY MOUTH EVERY 12 HOURS NEEDED 020 2019 Inactive True Metrix Glucose Test Strip RxNorm: 1 Test Strips Miscellaneous every morning 020 2019 Inactive 100/container True Metrix Glucose Test Strip RxNorm: 1 Test Strips Miscellaneous QAM 020 2019 Inactive 100/container loperamide 2 mg tablet RxNorm: 976071 1 Tablet(s) Oral as needed take one tablet after each loose stool, maximum of 8 tablets in 24 hours 020 2019 Inactive cetirizine 10 mg tablet RxNorm: 4373873 1 Tablet(s) PO daily 020 2019 Inactive loperamide 2 mg tablet RxNorm: 350912 1 Tablet(s) Oral as needed take one tablet after each loose stool, maximum of 8 tablets in 24 hours 020 2019 Inactive quetiapine 100 mg tablet RxNorm: 513213 1 Tablet(s) Oral every night at bedtime 2019 Inactive levothyroxine 50 mcg tablet RxNorm: 688162 1 Tablet(s) PO daily 020 2020 Inactive gabapentin 300 mg capsule RxNorm: 095554 1 Capsule(s) PO TID 020 2019 Inactive levothyroxine 50 mcg tablet RxNorm: 280471 1 Tablet(s) PO daily 2019 Inactive lisinopril 2.5 mg tablet RxNorm: 711011 1 Tablet(s) PO daily 020 2020 Inactive gabapentin 300 mg capsule RxNorm: 029615 1 Capsule(s) PO TID 2019 Inactive cetirizine 10 mg tablet RxNorm: 3970856 1 Tablet(s) PO daily 020 2019 Inactive Singulair 10 mg tablet RxNorm: 913912 1 Tablet(s) PO daily 020 04/04/ 2021 Inactive gentamicin 0.3 % eye drops RxNorm: 444728 1 Drop(s) ophthalmic (eye) four times a day 020 2019 Inactive gentamicin 0.3 % eye drops RxNorm: 096424 1 Drop(s) ophthalmic (eye) four times a day 020 2019 Inactive gentamicin 0.3 % eye drops RxNorm: 473440 1 Drop(s) ophthalmic (eye) four times a day 2019 Inactive hydrochlorothiazide 25 mg tablet RxNorm: 456843 1 Tablet(s) Oral every day 2019 Inactive Sudafed 12 Hour 120 mg tablet,extended release RxNorm: 6382841 TAKE (1) TABLET BY MOUTH EVERY 12 HOURS NEEDED 2019 Inactive loperamide 2 mg tablet RxNorm: 245236 1 Tablet(s) Oral as needed take one tablet after each loose stool, maximum of 8 tablets in 24 hours 2019 Inactive loperamide 2 mg tablet RxNorm: 501535 1 Tablet(s) Oral as needed take one tablet after each loose stool, maximum of 8 tablets in 24 hours 2019 Inactive atorvastatin 40 mg tablet RxNorm: 134240 1 Tablet(s) Oral every day 2020 Inactive quetiapine 100 mg tablet RxNorm: 681091 1 Tablet(s) Oral every night at bedtime 2019 Inactive sertraline 100 mg tablet RxNorm: 641831 1 Tablet(s) Oral 2019 Inactive omeprazole 20 mg capsule,delayed release RxNorm: 401293 1 Capsule(s) Oral every day 2019 Inactive amoxicillin 250 mg capsule RxNorm: 659928 1 Capsule(s) Oral three times a day 020 2019 Inactive multivitamin with iron-mineral tablet RxNorm: 1 Tablet(s) Oral every day 2021 Inactive cetirizine 10 mg tablet RxNorm: 2933380 1 Tablet(s) PO daily 2019 Inactive This refill negates all other refills of this medication. Please do not auto refill Singulair 10 mg tablet RxNorm: 679595 1 Tablet(s) PO daily 020 2019 Inactive This refill negates all other refills of this medication gabapentin 300 mg capsule RxNorm: 613337 1 Capsule(s) PO TID 2019 Inactive lisinopril 2.5 mg tablet RxNorm: 115171 1 Tablet(s) PO daily 2019 Inactive levothyroxine 50 mcg tablet RxNorm: 957745 1 Tablet(s) PO daily 2019 Inactive This refill negates all other refills of this medication hydrochlorothiazide 25 mg tablet RxNorm: 085302 1 Tablet(s) Oral every day 2019 Inactive fenugreek seed extract 500 mg capsule RxNorm: 1 Capsule(s) Oral three times a day 2021 Inactive Alcohol Prep Pads RxNorm: 220204 1 Patch TOP QAM 2020 Inactive loperamide 2 mg tablet RxNorm: 393746 1 Tablet(s) Oral as needed take one [...] 2019 Inactive hydrochlorothiazide 25 mg tablet RxNorm: 775915 1 Tablet(s) Oral every day 2019 Inactive Sudafed 12 Hour 120 mg tablet,extended release RxNorm: 0710101 1 Tablet(s) Oral every 12 hours as needed 2018 Inactive omeprazole 20 mg capsule,delayed release RxNorm: 070847 1 Capsule(s) Oral every day 019 2019 Inactive Sudafed 12 Hour 120 mg tablet,extended release RxNorm: 9379930 1 Tablet(s) Oral every 12 hours as needed 2018 Inactive pantoprazole 40 mg tablet,delayed release RxNorm: 146076 1 Tablet(s) Oral every day 019 2018 Inactive discontinue any other H2Blkr. and PPI albuterol sulfate 2.5 mg/3 mL (0.083 %) solution for nebulization RxNorm: 870312 1 Vial Inhalation every four hours as needed as needed for dyspnea 2019 Inactive 60/box. This refill negates all other refills of this medication. Please do not fill early. Please do not auto refill. Symbicort 160 mcg-4.5 mcg/actuation HFA aerosol inhaler RxNorm: 4647932 2 Puff(s) INH BID No Stop Date Active Alcohol Prep Pads RxNorm: 843951 1 Patch TOP QAM 019 2019 Inactive Ventolin HFA 90 mcg/actuation aerosol inhaler RxNorm: 967512 2 Puff(s) INH QID 2019 Inactive Please do not fill early. Please do not auto refill. This refill negates all other refills of this medication True Metrix Glucose Test Strip RxNorm: 1 Test Strips Miscellaneous QAM 019 2019 Inactive 100/container atorvastatin 40 mg tablet RxNorm: 435129 1 Tablet(s) Oral every day 019 2019 Inactive buspirone 7.5 mg tablet RxNorm: 968149 1 Tablet(s) PO BID 019 2020 Inactive This refill negates all other refills of this medication hydrochlorothiazide 12.5 mg tablet RxNorm: 046532 1 Tablet(s) PO QAM 019 2019 Inactive levmetamfetamine 50 mg nasal inhaler RxNorm: 1 Unit(s) NASAL Q3-4H Do not use more than every 3 hours or 8 times/24hours 019 2021 Inactive Please do not auto refill. This refill negates all other refills of this medication Ventolin HFA 90 mcg/actuation aerosol inhaler RxNorm: 418765 2 Puff(s) INH QID 2018 Inactive Please do not fill early. Please do not auto refill. This refill negates all other refills of this medication Singulair 10 mg tablet RxNorm: 117048 1 Tablet(s) PO daily 019 2019 Inactive This refill negates all other refills of this medication cetirizine 10 mg tablet RxNorm: 3684168 1 Tablet(s) PO daily 019 2019 Inactive This refill negates all other refills of this medication. Please do not auto refill levothyroxine 50 mcg tablet RxNorm: 717046 1 Tablet(s) PO daily 019 2019 Inactive This refill negates all other refills of this medication diclofenac sodium 75 mg tablet,delayed release RxNorm: 155430 1 Tablet(s) PO BID 019 2019 Inactive This refill negates all other refills of this medication ranitidine 150 mg tablet RxNorm: 182549 1 Tablet(s) PO BID 2018 Inactive This refill negates all other refills of this medication Calcium 600-D3 Plus (mag-zinc) 600 mg calcium-800 unit-50 mg tablet RxNorm: 1 Tablet(s) PO daily take an additonal tablet for itching. 019 2018 Inactive This refill negates all other refills of this medication albuterol sulfate 2.5 mg/3 mL (0.083 %) solution for nebulization RxNorm: 114275 1 Vial INH QID 019 2018 Inactive 60/box. This refill negates all other refills of this medication. Please do not fill early. Please do not auto refill. lisinopril 2.5 mg tablet RxNorm: 931209 1 Tablet(s) PO daily 019 2019 Inactive gabapentin 300 mg capsule RxNorm: 728739 1 Capsule(s) PO TID 019 2019 Inactive atorvastatin 20 mg tablet RxNorm: 390183 1 Tablet(s) PO QHS 2018 Inactive This refill negates all other refills of this medication TRUEplus Lancets 30 gauge RxNorm: 1 Lancets Miscellaneous QAM 2018 Inactive 100/box gabapentin 300 mg capsule RxNorm: 309077 1 Capsule(s) PO TID 019 2018 Inactive Flintstones Complete (iron) 18 mg iron chewable tablet RxNorm: 1 Tablet(s) PO daily 019 2021 Inactive This refill negates all other refills of this medication gabapentin 300 mg capsule RxNorm: 763051 1 Capsule(s) PO TID as needed 2018 Inactive True Metrix Glucose Test Strip RxNorm: 1 Test Strips Miscellaneous QA 019 2018 Inactive 100/container Alcohol Prep Pads RxNorm: 552105 1 Patch TOP QA 2018 Inactive TRUEplus Lancets 30 gauge RxNorm: 1 Lancets Miscellaneous QAM 019 2018 Inactive 100/box lisinopril 2.5 mg tablet RxNorm: 304653 1 Tablet(s) PO daily 019 2018 Inactive ranitidine 150 mg tablet RxNorm: 157853 1 Tablet(s) PO BID 019 2018 Inactive This refill negates all other refills of this medication albuterol sulfate 2.5 mg/3 mL (0.083 %) solution for nebulization RxNorm: 079504 1 Vial INH QID 019 2018 Inactive [...] this medication gabapentin 300 mg capsule RxNorm: 296484 1 Capsule(s) PO TID as needed 019 2018 Inactive atorvastatin 20 mg tablet RxNorm: 590446 1 Tablet(s) PO QHS 019 2018 Inactive This refill negates all other refills of this medication trazodone 50 mg tablet RxNorm: 654640 1 Tablet(s) PO QHS 019 2018 Inactive This refill negates all other refills of this medication Ventolin HFA 90 mcg/actuation aerosol inhaler RxNorm: 766268 2 Puff(s) INH QID 019 2018 Inactive Please do not fill early. Please do not auto refill. This refill negates all other refills of this medication Calcium 600-D3 Plus 600 mg calcium-800 unit-50 mg tablet RxNorm: 1 Tablet(s) PO daily take an additonal tablet for itching. 019 2018 Inactive This refill negates all other refills of this medication Singulair 10 mg tablet RxNorm: 871470 1 Tablet(s) PO daily 019 2018 Inactive This refill negates all other refills of this medication buspirone 7.5 mg tablet RxNorm: 067130 1 Tablet(s) PO BID 019 2018 Inactive This refill negates all other refills of this medication diclofenac sodium 75 mg tablet,delayed release RxNorm: 301746 1 Tablet(s) PO BID 019 2018 Inactive This refill negates all other refills of this medication hydrochlorothiazide 12.5 mg tablet RxNorm: 061287 1 Tablet(s) PO QAM 019 2018 Inactive metoprolol succinate ER 50 mg tablet,extended release 24 hr RxNorm: 713219 1 Tablet(s) PO daily 019 2018 Inactive This refill negates all other refills of this medication levothyroxine 50 mcg tablet RxNorm: 689469 1 Tablet(s) PO daily 019 2018 Inactive This refill negates all other refills of this medication cetirizine 10 mg tablet RxNorm: 3889519 1 Tablet(s) PO daily 019 2018 Inactive This refill negates all other refills of this medication. Please do not auto refill Flintstones Complete (iron) 18 mg iron chewable tablet RxNorm: 1 Tablet(s) PO daily 019 2018 Inactive This refill negates all other refills of this medication buspirone 7.5 mg tablet RxNorm: 767779 1 Tablet(s) PO BID 2018 Inactive cetirizine 10 mg tablet RxNorm: 8011868 1 Tablet(s) PO daily 2018 Inactive Guaiasorb DM 10 mg-100 mg/5 mL oral liquid RxNorm: 886926 10 Milliliter(s) PO As needed every 4 hr 2018 Inactive Vicks Vaporub 4.7 %-1.2 %-2.6 % topical ointment RxNorm: 7544220 1 Application TOP TID 2018 Inactive levmetamfetamine 50 mg nasal inhaler RxNorm: 1 Unit(s) NASAL Q3-4H 2017 Inactive sertraline 50 mg tablet RxNorm: 438374 1 Tablet(s) PO daily 018 2018 Inactive Please note dose trazodone 50 mg tablet RxNorm: 372597 1 Tablet(s) PO QHS 018 2018 Inactive sertraline 50 mg tablet RxNorm: 147551 1 Tablet(s) PO daily 018 2017 Inactive amoxicillin 500 mg tablet RxNorm: 025868 1 Tablet(s) PO Q12H 018 2017 Inactive albuterol sulfate 2.5 mg/3 mL (0.083 %) solution for nebulization RxNorm: 077855 1 Vial INH QID 018 2018 Inactive 60/box. Please do not fill early. Please do not auto refill. Prozac 10 mg capsule RxNorm: 195509 1 Capsule(s) PO daily 018 2017 Inactive buspirone 7.5 mg tablet RxNorm: 022408 1 Tablet(s) PO BID 018 2018 Inactive gabapentin 300 mg capsule RxNorm: 073523 1 Capsule(s) PO TID as needed 018 2018 Inactive hydrochlorothiazide 12.5 mg tablet RxNorm: 310219 1 Tablet(s) PO QAM 018 2018 Inactive ranitidine 150 mg tablet RxNorm: 564178 1 Tablet(s) PO BID 018 2018 Inactive Macrobid 100 mg capsule RxNorm: 781784 1 Capsule(s) PO Q12H 018 2017 Inactive Singulair 10 mg tablet RxNorm: 872397 1 Tablet(s) PO daily 018 2018 Inactive Ventolin HFA 90 mcg/actuation aerosol inhaler RxNorm: 5822246 2 Puff(s) INH QID 018 2018 Inactive Singulair 10 mg tablet RxNorm: 107388 1 Tablet(s) PO daily 018 2017 Inactive buspirone 7.5 mg tablet RxNorm: 188589 1 Tablet(s) PO BID 018 2017 Inactive Prozac 10 mg capsule RxNorm: 860763 1 Capsule(s) PO daily 018 2017 Inactive diclofenac sodium 75 mg tablet,delayed release RxNorm: 567740 1 Tablet(s) PO BID 018 2017 Inactive lisinopril 2.5 mg tablet RxNorm: 015352 1 Tablet(s) PO daily 018 2017 Inactive Neilmed Pediatric Sinus Rinse Refill packet RxNorm: 1 Unit Dose NASAL PRN 018 2021 Inactive metoprolol succinate ER 50 mg tablet,extended release 24 hr RxNorm: 696266 1 Tablet(s) PO daily 018 2017 Inactive levothyroxine 50 mcg tablet RxNorm: 901732 1 Tablet(s) PO daily 018 2017 Inactive TRUEplus Lancets 30 gauge RxNorm: 1 Lancets Miscellaneous QAM 018 2017 Inactive 100/box Ventolin HFA 90 mcg/actuation aerosol inhaler RxNorm: 256464 2 Puff(s) INH QID 018 2017 Inactive Aleve 220 mg capsule RxNorm: 4246924 1 Capsule(s) PO BID 018 2018 Inactive ranitidine 150 mg tablet RxNorm: 371723 1 Tablet(s) PO BID 018 2017 Inactive gabapentin 300 mg capsule RxNorm: 872805 1 Capsule(s) PO TID as needed 018 2017 Inactive atorvastatin 20 mg tablet RxNorm: 056373 1 Tablet(s) PO QHS 2017 Inactive True Metrix Glucose Test Strip RxNorm: 1 Test Strips Miscellaneous QAM 018 2017 Inactive 50/container Calcium 600-D3 Plus 600 mg calcium-800 unit-50 mg tablet RxNorm: 1 Tablet(s) PO daily take an additonal tablet for itching. 018 2017 Inactive hydrochlorothiazide 12.5 mg tablet RxNorm: 743138 1 Tablet(s) PO QAM 018 2017 Inactive Flintstones Complete (iron) 18 mg iron chewable tablet RxNorm: 1 Tablet(s) PO daily 018 2017 Inactive True Metrix Glucose Meter RxNorm: miscellaneous 019 2018 Inactive sertraline 50 mg tablet RxNorm: 275747 1 Tablet(s) PO daily 020 2019 Inactive loperamide 2 mg tablet RxNorm: 096982 oral 019 2018 Inactive d-mannose oral powder RxNorm: PO 018 2021 Inactive Symbicort 160 mcg-4.5 mcg/actuation HFA aerosol inhaler RxNorm: 2871792 2 Puff(s) INH BID 019 2018 Inactive Medication Administered No Medication Administered data Procedures Procedure Codes Date [place] Assessment CPT-4: DSWA 04/02 Patient Health [...] CPT-4: VACP Fall Risk Assessment SNOMED CT: 81662092 4 CPT-4: DFRA 01/13/2021 [place] [facility] Assessment CPT-4: DSWA 12/01 Urinalysis, dip stick CPT-4: 71962 09/24/2020 Patient Health Questionnaire CPT-4: DPHQ Electrocardiogram CPT-4: 22369 05/14/2020 Tobacco Assessment/Screening CPT-4: TCA Fall Risk Assessment SNOMED CT: 75865250 4 CPT-4: DFRA 01/01/2020 Functional Assessment CPT-4: DFA 01/01/2020 [place] Assessment CPT-4: DSWA 11/04 Patient Health Questionnaire CPT-4: DPHQ [place] [facility] Assessment CPT-4: DSWA 10/03 Hypertension CPT-4: HTN 10/17/2019 Fall Risk Assessment SNOMED CT: 42669166 4 CPT-4: DFRA 09/19/2019 Functional Assessment CPT-4: DFA 09/19/2019 Urinalysis, dip stick CPT-4: 74251 06/21/2019 Tobacco Assessment/Screening CPT-4: TCA Patient Health Questionnaire CPT-4: DPHQ AHA/REBECCA Classification Assessment CPT-4: DAHA 04/25/2019 Controlled Substance Report CPT-4: CTRSU 04/03 Urinalysis, dip stick CPT-4: 65776 03/28/2019 Urinalysis, dip stick CPT-4: 48740 03/28/2019 I0C-Jdmqdrehtktbmcj CPT-4: 24800 Unknown I6K-Qzhpsqmvbgkgfjk CPT-4: 83994 Unknown Y9T-Kbpiaxtceewhwge CPT-4: 06687 Unknown D4A-Owivxqjtpfdyeao CPT-4: 20222 Unknown S3Q-Dgaptypbonrawkh CPT-4: 93484 Unknown A3T-Vcavqhluzpxsxuc CPT-4: 25336 Unknown K9I-Prvwmdjcbjyslaq CPT-4: 12626 Unknown F7Q-Wohhfsytqmiesfl CPT-4: 22872 Unknown X5F-Jurxznjrenlosdb CPT-4: 48005 Unknown D8B-Umylmktdurxxllj CPT-4: 23721 Unknown Gynecology Referral SNOMED CT: [id number] CPT-4: R14 Unknown Reason For Visit No Reason For Visit data Plan of Care Planned Activity Notes Codes Status Date Patient Education: Patient Medication Summary Completed 08/09/2022 Appointment: Anna Culver WPtel: [address] [place] [address] E410 06/23/2022 Appointment: Chivo Bishop WPtel: [address] [place] [address] E410 04/19/2022 Appointment: Chivo Bishop WPtel: [address] [place] [address] E410 02/11/2022 Appointment: Mikey Nair WPtel: [address] [facility] 202[address] [id number] [place] E410 12/03/2021 Appointment: Chivo Bishop WPtel: [address] [place] [address] E410 11/02/2021 Appointment: Chivo Bishop WPtel: [address] [place] [address] E410 10/07/2021 Appointment: Chivo Bishop WPtel: [address] [place] [address] ETV 09/10/2021 Appointment: Chivo Bishop WPtel: [address] [place] [address] ETV 08/13/2021 Appointment: Chivo Bishop WPtel: [address] [place] [address] ETV 07/06/2021 Appointment: Chivo Bishop WPtel: [address] [place] [address] PHTV 06/10/2021 Appointment: Anna Culver WPtel: [address] [place] [address] ETV 06/02/2021 Appointment: Chivo Bishop WPtel: [address] [place] [address] ETV 05/20/2021 Appointment: Anna Culver WPtel: [address] [place] [address] ETV 04/28/2021 Appointment: Chivo Bishop WPtel: [address] [place] [address] ETV 04/15/2021 Appointment: Anna Culver WPtel: [address] [place] [address] [place] E410 04/01/2021 Appointment: Anna Culver WPtel: [address] [place] [address] ETV 03/24/2021 Appointment: Anna Culver WPtel: [address] [place] [address] ETV 03/13/2021 Appointment: Anna Culver WPtel: [address] [place] [address] E410 02/11/2021 Appointment: Chivo Bishop WPtel: [address] [place] [address] E410 01/29/2021 Appointment: Anna Culver WPtel: [address] [place] [address] ETV 01/13/2021 Appointment: Anna Culver WPtel: [address] [place] [address] E410 12/17/2020 Appointment: Chivo Bishop WPtel: [address] [place] [address] ETV 11/28/2020 Appointment: Anna Culver WPtel: [address] [place] [address] ETV 11/24/2020 Appointment: Anna Culver WPtel: [address] [place] [address] E410 10/29/2020 Appointment: Anna Culver WPtel: [address] [place] [address] E410 09/24/2020 Appointment: Anna Culver WPtel: [address] [place] [address] ETV 08/26/2020 Appointment: Anna Culver WPtel: [address] [place] [address] ETV 08/19/2020 Appointment: Anna Culver WPtel: [id number] [place] [address] [place] ETV 07/22/2020 Appointment: Anna Culver WPtel: [address] [place] [address] ETV 07/08/2020 Appointment: Gianna Birmingham: [address] [facility] 100 [id number] [place] ECHO 07/02/2020 Appointment: Anna Culver WPtel: [address] [place] [address] E452 06/11/2020 Appointment: Anna Culver WPtel: [address] [place] [address] E452 05/14/2020 Appointment: Anna Culver WPtel: [address] [place] [address] [place] E452 04/17/2020 Appointment: Anna Culver WPtel: [address] [place] [address] E452 03/21/2020 Appointment: Anna Culver WPtel: [address] [place] [address] E452 02/14/2020 Appointment: Anna Culver WPtel: [address] [place] [address] [place] E452 01/24/2020 Appointment: Anna Culver WPtel: [address] [place] [address] [place] E452 01/01/2020 Appointment: Anna Culver WPtel: [address] [place] [address] [place] E452 11/28/2019 Appointment: Anna Culver WPtel: [address] [place] [address] [place] E452 10/17/2019 Appointment: Anna Culver WPtel: [id number] [place] [address] [place], [place] [id number] E452 09/19/2019 Appointment: Sudha Hernadez WPtel: [address] [facility] [id number] E452 07/04/2019 Appointment: Sudha Hernadez WPtel: [address] [facility] [id number] E452 06/21/2019 Appointment: Charlene Oropeza WPtel: [address] [facility] [id number] E452 05/24/2019 Appointment: Mallory Delgado E452 04/27/2019 Appointment: Charlene Oropeza WPtel: [address] [facility] [id number] E452 04/25/2019 Appointment: Rasta Palafox WPtel: [address] [facility] [id number] E452 03/28/2019 Appointment: Rasta Palafox WPtel: [address] [facility] [id number] E452 02/14/2019 Appointment: Rasta Palafox WPtel: [address] [facility] [id number] E452 01/31/2019 Appointment: Rasta Palafox WPtel: [address] [place] [address] [id number] E420 12/27/2018 Referral: Pending Gynecology Referral Information Referral Processed Referral: Pending Pulmonolog y Referral Information Referral Processed Referral: Pending Psychiatry Referral Information Referral Initiated Referral: Pending Respirator y Services Referral Information Referral Initiated Referral: Pending Ophthalmology Referral Information Referral Initiated Referral: [facility] WPtel: [address] [place] Soft Work Wrapper Examiner placed a call out to the patient to notify her that it has been recommended that she be seen by a urologist. Patient agreed to be seen, does not have a provider of choice and no transportation issues. Soft Work Wrapper Examiner faxed referral and clinical notes to [facility] in [place], [place] near the patient's home. Patient to [...] seen and prefers a provider in the [place] or [place] area. Soft Work Wrapper Examiner placed a call out to everyone listed in the area and the only location that was able to accept the patient's insurance was [address] [address] and spoke with Maylin. Maylin asked that the patient's referral, face sheet and visit notes be faxed to . Soft Work Wrapper Examiner faxed over requested documents. Patient appointment confirmation letter generated and mailed to her home address. Patient to call to schedule an appointment. [facility] W[facility]: [address] [place] [address] Patient notified that it has been advised that she be seen by Neurology. Patient agreed to be seen and prefers to be seen by a provider in the [place], [place] area. Patient denies any concerns with transportation, and prefers to schedule her own appointment. Soft Work Wrapper Examiner placed a call out to [facility] and spoke with [...]
--- OUTSIDE RECORDS SUMMARY | 2023-12-07 02:21 | XMS_ITS | CCD ---
Author Name Leena Culver NP Address [address] [place] [address] [place] [id number] Phone Organization [facility] Phone Care Team Providers Care Securities Attorney Name Role Phone Anna Culver NP Primary Care Provider Unav ailable Unavailable Chronic Care Management Unavaila ble Summary Purpose DataExchange Insurance Providers Payer name Policy type / Coverage type Covered constitution party ID Effective Begin Date Effective End Date SUKI MAYO [id number] Unknown Unknown Family history Mother Diagnosis Age [...] Unknown Disability 05/31/[address]: 977391315 Has never s moked or chewed tobacco 05/31/[address]: 933770444 Never drinks alco hol 05/31/2018 Has the patient ever used illegal drugs? Unknown Has never used illegal drugs 05/31/2018 DNR Order/ Advanced Directive Unknown Full Code 05/31/2018 Allergies, Adverse Reactions, Alerts Substance Reaction Codes Entered Date Inactivated Date Status OxyContin itch, RxNorm: 428457 01/13/2021 No Inactive Da te Active *No known food allergies Unknown 09/06/2018 No I nactive Date Active Methylprednisolone hives RxNorm: 6902 09/06/2018 No Inac tive Date Active Problems Condition Codes Effective Dates Condition St atus Adult BMI 50.0-59.9 kg/sq m ICD-10: Z68. 43 ICD-9: V85.43 05/30/2018 Active Encounter for immunization ICD-10: Z23 ICD-9: V04.81 08/17/2022 Active Fungal infection of skin ICD-10: B36.9 ICD-9: 111.9 08/17/2022 Active Hypertension ICD-10: I10 ICD-9: 401.9 12/03/2021 Active Influenza vaccine refused ICD-10: Z28.21 ICD-9: V64.06 06/23/2022 Active Type 2 diabetes mellitus wit [...] sprain ICD-10: S93.409A ICD-9: 845.00 07/31/2022 Active Hypertensive heart disease ICD-10: I11.9 ICD-9: 402.90 12/03/2021 Active Hypothyroid ICD-10: E03.9 ICD-9: 244.9 09/05/2018 Active Abscess ICD-10: L02.91 ICD-9: 682.9 04/21/2022 Active Hyperlipidemia, mixed ICD-10: E78.2 ICD-9: 272.2 12/03/2021 Active (Z00.00-V70.9) Encounter for general adult [...] ICD-10: E78. 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 ICD-10: Z79.899 ICD-9: V58.69 04/25/2019 Inactive Type 2 diabetes mellitus wit hout complications ICD-10: E11.9 ICD-9: 250.00 10/03/2018 Inactive Wheezing ICD-10: R06.2 ICD-9: 786.07 08/08/2018 Inactive Abnormal urine finding ICD-10: R82.90 ICD-9: 791.9 09/24/2020 Resolved Abrasion of toe ICD-10: S90.416A ICD-9: 917.0 02/14/2020 Resolved [place] eye ICD-10: H10.029 ICD-9: 372.03 12/29/2019 Resolved [...] Instructions clotrimazole 1 % topical cream RxNorm: 699605 Apply 1 Application Topical two times a day as needed apply to affected area(s) twice daily until healed 2021 Inactive Victoza 2-Sebastián 0.6 mg/0.1 mL (18 mg/3 mL) subcutaneous pen injector RxNorm: 404605 Inject 0.6-1.8 Milligram(s) Subcutaneous once a week Inject 0.6mg/0.1ml week one, 1.2mg/0.2ml week two, 1.8/0.3ml weekly thereafter 022 2021 Inactive ibuprofen 800 mg tablet RxNorm: 549256 Take 1 Tablet(s) Oral Q8H as needed for pain take with food No Stop Date Active Ozempic 1 mg/dose (4 mg/3 mL) subcutaneous pen injector RxNorm: 5283803 Take 1 Unit Dose Subcutaneous QWeek Tuesday 022 2021 Inactive lisinopril 2.5 mg tablet RxNorm: 921004 Take 1 Tablet(s) Oral every day 2021 Inactive lisinopril 2.5 mg tablet RxNorm: 717507 Take 1 Tablet(s) Oral every day 022 2022 Inactive hydrochlorothiazide 25 mg tablet RxNorm: 201524 Take 1 Tablet(s) Oral every day 022 2021 Inactive Ozempic 1 mg/dose (4 mg/3 mL) subcutaneous pen injector RxNorm: 5059869 Take 1 Unit Dose Subcutaneous QWeek 2021 Inactive famotidine 20 mg tablet RxNorm: 981881 Take 1 Tablet(s) Oral every morning 2021 Inactive levothyroxine 50 mcg tablet RxNorm: 014059 Take 1 Tablet(s) Oral every day 2021 Inactive atorvastatin 20 mg tablet RxNorm: 846599 Take 1 Tablet(s) Oral every night at bedtime 2021 Inactive Cleocin T 1 % lotion RxNorm: 110581 Take 2 Gram(s) Topical every day 022 2021 Inactive Cleocin T 1 % lotion RxNorm: 576486 Take 2 Gram(s) Topical every day 022 2021 Inactive Ozempic 1 mg/dose (4 mg/3 mL) subcutaneous pen injector RxNorm: 8645917 Take 1 Unit Dose Subcutaneous QWeek 022 2021 Inactive Ozempic 0.25 mg or 0.5 mg (2 mg/1.5 mL) subcutaneous pen injector RxNorm: 5877013 INJECT 0.5 MGS SUBCUTANEOUSLY EVERY WEEK 022 2021 Inactive omeprazole 20 mg capsule,delayed release RxNorm: 256309 Take 1 Capsule(s) Oral every evening 2021 Inactive levothyroxine 50 mcg tablet RxNorm: 774073 Take 1 Tablet(s) Oral every day 2021 Inactive atorvastatin 20 mg tablet RxNorm: 803231 Take 1 Tablet(s) Oral every night at bedtime 2021 Inactive This refill negates all other refills of this medication lisinopril 2.5 mg tablet RxNorm: 887254 Take 1 Tablet(s) Oral every day 2021 Inactive gabapentin 300 mg capsule RxNorm: 032242 Take 1 Capsule(s) Oral three times a day 2021 Inactive montelukast 10 mg tablet RxNorm: 473647 Take 1 Tablet(s) Oral every day 2021 Inactive cholecalciferol (vitamin D3) 50 mcg (2,000 unit) tablet RxNorm: 736136 Take 1 Tablet(s) Oral every day 2022 Inactive Myrbetriq 50 mg tablet,extended release RxNorm: 1019389 1 Tablet(s) Oral every day No Stop Date Active Ozempic 0.25 mg or 0.5 mg (2 mg/1.5 mL) subcutaneous pen injector RxNorm: 9104322 inject 0.5 milligrams subcutaneously every week 022 2021 Inactive Ozempic 0.25 mg or 0.5 mg (2 mg/1.5 mL) subcutaneous pen injector RxNorm: 0068676 Take 0.5 Capsule(s) Injection once a week 2021 Inactive omeprazole 20 mg capsule,delayed release RxNorm: 212924 Take 1 Capsule(s) Oral every evening 021 2020 Inactive Ozempic 0.25 mg or 0.5 mg (2 mg/1.5 mL) subcutaneous pen injector RxNorm: 1830984 Take 0.25 Milligram(s) Subcutaneous once a week 2021 Inactive Easy Touch Alcohol Prep Pads RxNorm: 157007 USE DIRECTED EACH MORNING 021 2021 Inactive Probiotic 10 billion cell capsule RxNorm: 3218199 Take 1 Capsule(s) Oral every day 2021 Inactive levothyroxine 50 mcg tablet RxNorm: 620326 Take 1 Tablet(s) Oral every day 2020 Inactive Acid Swimming Pool Plasterer Helper (famotidine) 20 mg tablet RxNorm: 095889 Take 1 Tablet(s) Oral every morning 2020 Inactive Heartburn Relief (famotidine) 10 mg tablet RxNorm: 075046 Take 1 Tablet(s) Oral QAM 021 2020 Inactive levothyroxine 50 mcg tablet RxNorm: 705939 Take 1 Tablet(s) Oral QD 2020 Inactive Singulair 10 mg tablet RxNorm: 967017 TAKE (1) TABLET BY MOUTH DAILY 2020 Inactive metformin 1,000 mg tablet RxNorm: 554170 1 Tablet(s) Oral two times a day 021 2021 Inactive lisinopril 2.5 mg tablet RxNorm: 292069 Take 1 Tablet(s) Oral every day 2020 Inactive hydrochlorothiazide 25 mg tablet RxNorm: 365318 Take 1 Tablet(s) Oral every day 021 2020 Inactive ondansetron 4 mg disintegrating tablet RxNorm: 936372 1 Tablet(s) Oral two times a day 021 2020 Inactive Sudafed 12 Hour 120 mg tablet,extended release RxNorm: 7488352 TAKE 1 TABLET BY MOUTH EVERY 12 HOURS NEEDED 021 2021 Inactive Heartburn Relief (famotidine) 10 mg tablet RxNorm: 300114 Take 1 Tablet(s) Oral every morning 021 2020 Inactive omeprazole 20 mg capsule,delayed release RxNorm: 099607 1 Capsule(s) Oral every evening 021 2020 Inactive sertraline 100 mg tablet RxNorm: 922404 2 Tablet(s) Oral every day 021 2020 Inactive levothyroxine 50 mcg tablet RxNorm: 185324 TAKE (1) TABLET BY MOUTH DAILY 021 2020 Inactive metformin 500 mg tablet RxNorm: 141002 1 Tablet(s) Oral two times a day take with 500mg to equal 1000mg 021 2020 Inactive gabapentin 300 mg capsule RxNorm: 222614 TAKE 1 CAPSULE BY MOUTH THREE TIMES A DAY 021 2020 Inactive lisinopril 2.5 mg tablet RxNorm: 467344 TAKE 1 TABLET BY MOUTH DAILY 021 2020 Inactive gabapentin 300 mg capsule RxNorm: 613866 TAKE 1 CAPSULE BY MOUTH THREE TIMES A DAY 021 2020 Inactive Singulair 10 mg tablet RxNorm: 750306 TAKE (1) TABLET BY MOUTH DAILY 021 2020 Inactive metformin 1,000 mg tablet RxNorm: 401378 1 Tablet(s) Oral two times a day 021 2020 Inactive atorvastatin 40 mg tablet RxNorm: 850839 1 Tablet(s) Oral every day 021 2020 Inactive omeprazole 20 mg capsule,delayed release RxNorm: 700193 1 Capsule(s) Oral every evening 021 2020 Inactive famotidine 10 mg tablet RxNorm: 399064 1 Tablet(s) Oral every morning 021 2020 Inactive Alcohol Prep Pads RxNorm: 613598 USE EACH MORNING 021 2020 Inactive omeprazole 20 mg capsule,delayed release RxNorm: 749959 1 Capsule(s) Oral two times a day 021 2021 Inactive omeprazole 20 mg capsule,delayed release RxNorm: 274756 TAKE 1 CAPSULE BY MOUTH EVERY DAY 2021 Inactive Macrobid 100 mg capsule RxNorm: 645311 1 Capsule(s) Oral every 12 hours with food 2020 Inactive omeprazole 20 mg capsule,delayed release RxNorm: 828944 1 Capsule(s) Oral two times a day 2021 Inactive metformin 1,000 mg tablet RxNorm: 706754 1 Tablet(s) Oral two times a day 2020 Inactive start on September 11, 2020 metformin 500 mg tablet RxNorm: 567665 1 Tablet(s) Oral two times a day take with 500mg to equal 1000mg 2019 Inactive gabapentin 300 mg capsule RxNorm: 688983 TAKE 1 CAPSULE BY MOUTH THREE TIMES DAILY 2020 Inactive cetirizine 10 mg tablet RxNorm: 0705191 TAKE (1) TABLET BY MOUTH DAILY 2020 Inactive metformin 500 mg tablet RxNorm: 742287 1 Tablet(s) Oral two times a day 2019 Inactive loperamide 2 mg tablet RxNorm: 682780 1 Tablet(s) Oral as needed take one tablet after each loose stool, maximum of 8 tablets in 24 hours 2021 Inactive Sudafed 12 Hour 120 mg tablet,extended release RxNorm: 9608572 TAKE 1 TABLET BY MOUTH EVERY 12 HOURS NEEDED 2019 Inactive hydrochlorothiazide 25 mg tablet RxNorm: 628377 TAKE (1) TABLET BY MOUTH EVERY DAY 2019 Inactive omeprazole 20 mg capsule,delayed release RxNorm: 302187 TAKE 1 CAPSULE BY MOUTH EVERY DAY 2020 Inactive metformin 500 mg tablet RxNorm: 183900 1 Tablet(s) Oral every day 2019 Inactive True Metrix Glucose Test Strip RxNorm: 1 Test Strips Miscellaneous two times a day as needed No Stop Date Active metformin 500 mg tablet RxNorm: 933992 1 Tablet(s) Oral every day 020 2019 Inactive diclofenac sodium 75 mg tablet,delayed release RxNorm: 682948 1 Tablet(s) PO BID 2021 Inactive This refill negates all other refills of this medication Sudafed 12 Hour 120 mg tablet,extended release RxNorm: 5091424 TAKE 1 TABLET BY MOUTH EVERY 12 HOURS NEEDED 020 2019 Inactive True Metrix Glucose Test Strip RxNorm: 1 Test Strips Miscellaneous every morning 020 2019 Inactive 100/container True Metrix Glucose Test Strip RxNorm: 1 Test Strips Miscellaneous QAM 020 2019 Inactive 100/container loperamide 2 mg tablet RxNorm: 226634 1 Tablet(s) Oral as needed take one tablet after each loose stool, maximum of 8 tablets in 24 hours 020 2019 Inactive cetirizine 10 mg tablet RxNorm: 8983528 1 Tablet(s) PO daily 2019 Inactive loperamide 2 mg tablet RxNorm: 779249 1 Tablet(s) Oral as needed take one tablet after each loose stool, maximum of 8 tablets in 24 hours 020 2019 Inactive quetiapine 100 mg tablet RxNorm: 752078 1 Tablet(s) Oral every night at bedtime 2019 Inactive levothyroxine 50 mcg tablet RxNorm: 552954 1 Tablet(s) PO daily 020 2020 Inactive gabapentin 300 mg capsule RxNorm: 130901 1 Capsule(s) PO TID 020 2019 Inactive levothyroxine 50 mcg tablet RxNorm: 614377 1 Tablet(s) PO daily 020 2019 Inactive lisinopril 2.5 mg tablet RxNorm: 146654 1 Tablet(s) PO daily 020 2020 Inactive gabapentin 300 mg capsule RxNorm: 253785 1 Capsule(s) PO TID 2019 Inactive cetirizine 10 mg tablet RxNorm: 7891104 1 Tablet(s) PO daily 2019 Inactive Singulair 10 mg tablet RxNorm: 183784 1 Tablet(s) PO daily 2020 Inactive gentamicin 0.3 % eye drops RxNorm: 971688 1 Drop(s) ophthalmic (eye) four times a day 2019 Inactive gentamicin 0.3 % eye drops RxNorm: 306917 1 Drop(s) ophthalmic (eye) four times a day 2019 Inactive gentamicin 0.3 % eye drops RxNorm: 272441 1 Drop(s) ophthalmic (eye) four times a day 2019 Inactive hydrochlorothiazide 25 mg tablet RxNorm: 869715 1 Tablet(s) Oral every day 2019 Inactive Sudafed 12 Hour 120 mg tablet,extended release RxNorm: 1722929 TAKE (1) TABLET BY MOUTH EVERY 12 HOURS NEEDED 2019 Inactive loperamide 2 mg tablet RxNorm: 841045 1 Tablet(s) Oral as needed take one tablet after each loose stool, maximum of 8 tablets in 24 hours 020 2019 Inactive loperamide 2 mg tablet RxNorm: 735924 1 Tablet(s) Oral as needed take one tablet after each loose stool, maximum of 8 tablets in 24 hours 2019 Inactive atorvastatin 40 mg tablet RxNorm: 671270 1 Tablet(s) Oral every day 2020 Inactive quetiapine 100 mg tablet RxNorm: 505809 1 Tablet(s) Oral every night at bedtime 2019 Inactive sertraline 100 mg tablet RxNorm: 919290 1 Tablet(s) Oral 2019 Inactive omeprazole 20 mg capsule,delayed release RxNorm: 428571 1 Capsule(s) Oral every day 2019 Inactive amoxicillin 250 mg capsule RxNorm: 635661 1 Capsule(s) Oral three times a day 020 2019 Inactive multivitamin with iron-mineral tablet RxNorm: 1 Tablet(s) Oral every day 2021 Inactive cetirizine 10 mg tablet RxNorm: 5327316 1 Tablet(s) PO daily 2019 Inactive This refill negates all other refills of this medication. Please do not auto refill Singulair 10 mg tablet RxNorm: 544712 1 Tablet(s) PO daily 2019 Inactive This refill negates all other refills of this medication gabapentin 300 mg capsule RxNorm: 232657 1 Capsule(s) PO TID 2019 Inactive lisinopril 2.5 mg tablet RxNorm: 048506 1 Tablet(s) PO daily 2019 Inactive levothyroxine 50 mcg tablet RxNorm: 622490 1 Tablet(s) PO daily 2019 Inactive This refill negates all other refills of this medication hydrochlorothiazide 25 mg tablet RxNorm: 134841 1 Tablet(s) Oral every day 2019 Inactive fenugreek seed extract 500 mg capsule RxNorm: 1 Capsule(s) Oral three times a day 2021 Inactive Alcohol Prep Pads RxNorm: 128894 1 Patch TOP QAM 020 2020 Inactive loperamide 2 mg tablet RxNorm: 380343 1 Tablet(s) Oral as needed take one [...] 2019 Inactive hydrochlorothiazide 25 mg tablet RxNorm: 430059 1 Tablet(s) Oral every day 019 2019 Inactive Sudafed 12 Hour 120 mg tablet,extended release RxNorm: 9336393 1 Tablet(s) Oral every 12 hours as needed 2018 Inactive omeprazole 20 mg capsule,delayed release RxNorm: 241133 1 Capsule(s) Oral every day 2019 Inactive Sudafed 12 Hour 120 mg tablet,extended release RxNorm: 2504661 1 Tablet(s) Oral every 12 hours as needed 2018 Inactive pantoprazole 40 mg tablet,delayed release RxNorm: 720986 1 Tablet(s) Oral every day 2018 Inactive discontinue any other H2Blkr. and PPI albuterol sulfate 2.5 mg/3 mL (0.083 %) solution for nebulization RxNorm: 684040 1 Vial Inhalation every four hours as needed as needed for dyspnea 2019 Inactive 60/box. This refill negates all other refills of this medication. Please do not fill early. Please do not auto refill. Symbicort 160 mcg-4.5 mcg/actuation HFA aerosol inhaler RxNorm: 6613163 2 Puff(s) INH BID No Stop Date Active Alcohol Prep Pads RxNorm: 339043 1 Patch TOP QAM 019 2019 Inactive Ventolin HFA 90 mcg/actuation aerosol inhaler RxNorm: 553377 2 Puff(s) INH QID 2019 Inactive Please do not fill early. Please do not auto refill. This refill negates all other refills of this medication True Metrix Glucose Test Strip RxNorm: 1 Test Strips Miscellaneous QAM 019 2019 Inactive 100/container atorvastatin 40 mg tablet RxNorm: 706450 1 Tablet(s) Oral every day 019 2019 Inactive buspirone 7.5 mg tablet RxNorm: 293224 1 Tablet(s) PO BID 019 2020 Inactive This refill negates all other refills of this medication hydrochlorothiazide 12.5 mg tablet RxNorm: 716097 1 Tablet(s) PO QAM 019 2019 Inactive levmetamfetamine 50 mg nasal inhaler RxNorm: 1 Unit(s) NASAL Q3-4H Do not use more than every 3 hours or 8 times/24hours 019 2021 Inactive Please do not auto refill. This refill negates all other refills of this medication Ventolin HFA 90 mcg/actuation aerosol inhaler RxNorm: 618271 2 Puff(s) INH QID 2018 Inactive Please do not fill early. Please do not auto refill. This refill negates all other refills of this medication Singulair 10 mg tablet RxNorm: 218767 1 Tablet(s) PO daily 019 2019 Inactive This refill negates all other refills of this medication cetirizine 10 mg tablet RxNorm: 3417633 1 Tablet(s) PO daily 019 2019 Inactive This refill negates all other refills of this medication. Please do not auto refill levothyroxine 50 mcg tablet RxNorm: 427801 1 Tablet(s) PO daily 019 2019 Inactive This refill negates all other refills of this medication diclofenac sodium 75 mg tablet,delayed release RxNorm: 484333 1 Tablet(s) PO BID 019 2019 Inactive This refill negates all other refills of this medication ranitidine 150 mg tablet RxNorm: 138249 1 Tablet(s) PO BID 019 2018 Inactive This refill negates all other refills of this medication Calcium 600-D3 Plus (mag-zinc) 600 mg calcium-800 unit-50 mg tablet RxNorm: 1 Tablet(s) PO daily take an additonal tablet for itching. 2018 Inactive This refill negates all other refills of this medication albuterol sulfate 2.5 mg/3 mL (0.083 %) solution for nebulization RxNorm: 644587 1 Vial INH QID 019 2018 Inactive 60/box. This refill negates all other refills of this medication. Please do not fill early. Please do not auto refill. lisinopril 2.5 mg tablet RxNorm: 848389 1 Tablet(s) PO daily 019 2019 Inactive gabapentin 300 mg capsule RxNorm: 122262 1 Capsule(s) PO TID 019 2019 Inactive atorvastatin 20 mg tablet RxNorm: 721268 1 Tablet(s) PO QHS 2018 Inactive This refill negates all other refills of this medication TRUEplus Lancets 30 gauge RxNorm: 1 Lancets Miscellaneous QAM 019 2018 Inactive 100/box gabapentin 300 mg capsule RxNorm: 393084 1 Capsule(s) PO TID 2018 Inactive Flintstones Complete (iron) 18 mg iron chewable tablet RxNorm: 1 Tablet(s) PO daily 019 2021 Inactive This refill negates all other refills of this medication gabapentin 300 mg capsule RxNorm: 236773 1 Capsule(s) PO TID as needed 2018 Inactive True Metrix Glucose Test Strip RxNorm: 1 Test Strips Miscellaneous QAM 019 2018 Inactive 100/container Alcohol Prep Pads RxNorm: 401740 1 Patch TOP QAM 2018 Inactive TRUEplus Lancets 30 gauge RxNorm: 1 Lancets Miscellaneous QAM 019 2018 Inactive 100/box lisinopril 2.5 mg tablet RxNorm: 949225 1 Tablet(s) PO daily 019 2018 Inactive ranitidine 150 mg tablet RxNorm: 190584 1 Tablet(s) PO BID 019 2018 Inactive This refill negates all other refills of this medication albuterol sulfate 2.5 mg/3 mL (0.083 %) solution for nebulization RxNorm: 210625 1 Vial INH QID 019 2018 Inactive [...] this medication gabapentin 300 mg capsule RxNorm: 798391 1 Capsule(s) PO TID as needed 019 2018 Inactive atorvastatin 20 mg tablet RxNorm: 366757 1 Tablet(s) PO QHS 019 2018 Inactive This refill negates all other refills of this medication trazodone 50 mg tablet RxNorm: 880938 1 Tablet(s) PO QHS 019 2018 Inactive This refill negates all other refills of this medication Ventolin HFA 90 mcg/actuation aerosol inhaler RxNorm: 655576 2 Puff(s) INH QID 019 2018 Inactive Please do not fill early. Please do not auto refill. This refill negates all other refills of this medication Calcium 600-D3 Plus 600 mg calcium-800 unit-50 mg tablet RxNorm: 1 Tablet(s) PO daily take an additonal tablet for itching. 019 2018 Inactive This refill negates all other refills of this medication Singulair 10 mg tablet RxNorm: 172966 1 Tablet(s) PO daily 019 2018 Inactive This refill negates all other refills of this medication buspirone 7.5 mg tablet RxNorm: 255441 1 Tablet(s) PO BID 019 2018 Inactive This refill negates all other refills of this medication diclofenac sodium 75 mg tablet,delayed release RxNorm: 288802 1 Tablet(s) PO BID 019 2018 Inactive This refill negates all other refills of this medication hydrochlorothiazide 12.5 mg tablet RxNorm: 481352 1 Tablet(s) PO QAM 019 2018 Inactive metoprolol succinate ER 50 mg tablet,extended release 24 hr RxNorm: 664556 1 Tablet(s) PO daily 019 2018 Inactive This refill negates all other refills of this medication levothyroxine 50 mcg tablet RxNorm: 633824 1 Tablet(s) PO daily 019 2018 Inactive This refill negates all other refills of this medication cetirizine 10 mg tablet RxNorm: 7914061 1 Tablet(s) PO daily 019 2018 Inactive This refill negates all other refills of this medication. Please do not auto refill Flintstones Complete (iron) 18 mg iron chewable tablet RxNorm: 1 Tablet(s) PO daily 019 2018 Inactive This refill negates all other refills of this medication buspirone 7.5 mg tablet RxNorm: 544618 1 Tablet(s) PO BID 019 2018 Inactive cetirizine 10 mg tablet RxNorm: 8655695 1 Tablet(s) PO daily 2018 Inactive Guaiasorb DM 10 mg-100 mg/5 mL oral liquid RxNorm: 833921 10 Milliliter(s) PO As needed every 4 hr 2018 Inactive Vicks Vaporub 4.7 %-1.2 %-2.6 % topical ointment RxNorm: 6860974 1 Application TOP TID 2018 Inactive levmetamfetamine 50 mg nasal inhaler RxNorm: 1 Unit(s) NASAL Q3-4H 2017 Inactive sertraline 50 mg tablet RxNorm: 081324 1 Tablet(s) PO daily 018 2018 Inactive Please note dose trazodone 50 mg tablet RxNorm: 958985 1 Tablet(s) PO QHS 018 2018 Inactive sertraline 50 mg tablet RxNorm: 821717 1 Tablet(s) PO daily 018 2017 Inactive amoxicillin 500 mg tablet RxNorm: 422822 1 Tablet(s) PO Q12H 018 2017 Inactive albuterol sulfate 2.5 mg/3 mL (0.083 %) solution for nebulization RxNorm: 050972 1 Vial INH QID 2018 Inactive 60/box. Please do not fill early. Please do not auto refill. Prozac 10 mg capsule RxNorm: 006783 1 Capsule(s) PO daily 018 2017 Inactive buspirone 7.5 mg tablet RxNorm: 391508 1 Tablet(s) PO BID 018 2018 Inactive gabapentin 300 mg capsule RxNorm: 986982 1 Capsule(s) PO TID as needed 2018 Inactive hydrochlorothiazide 12.5 mg tablet RxNorm: 452116 1 Tablet(s) PO QAM 018 2018 Inactive ranitidine 150 mg tablet RxNorm: 421154 1 Tablet(s) PO BID 2018 Inactive Macrobid 100 mg capsule RxNorm: 962769 1 Capsule(s) PO Q12H 018 2017 Inactive Singulair 10 mg tablet RxNorm: 088587 1 Tablet(s) PO daily 018 2018 Inactive Ventolin HFA 90 mcg/actuation aerosol inhaler RxNorm: 4224724 2 Puff(s) INH QID 018 2018 Inactive Singulair 10 mg tablet RxNorm: 471883 1 Tablet(s) PO daily 018 2017 Inactive buspirone 7.5 mg tablet RxNorm: 832293 1 Tablet(s) PO BID 018 2017 Inactive Prozac 10 mg capsule RxNorm: 700374 1 Capsule(s) PO daily 018 2017 Inactive diclofenac sodium 75 mg tablet,delayed release RxNorm: 283169 1 Tablet(s) PO BID 018 2017 Inactive lisinopril 2.5 mg tablet RxNorm: 810768 1 Tablet(s) PO daily 018 2017 Inactive Neilmed Pediatric Sinus Rinse Refill packet RxNorm: 1 Unit Dose NASAL PRN 018 2021 Inactive metoprolol succinate ER 50 mg tablet,extended release 24 hr RxNorm: 950764 1 Tablet(s) PO daily 018 2017 Inactive levothyroxine 50 mcg tablet RxNorm: 036177 1 Tablet(s) PO daily 018 2017 Inactive TRUEplus Lancets 30 gauge RxNorm: 1 Lancets Miscellaneous QAM 018 2017 Inactive 100/box Ventolin HFA 90 mcg/actuation aerosol inhaler RxNorm: 990188 2 Puff(s) INH QID 018 2017 Inactive Aleve 220 mg capsule RxNorm: 9658319 1 Capsule(s) PO BID 018 2018 Inactive ranitidine 150 mg tablet RxNorm: 718126 1 Tablet(s) PO BID 018 2017 Inactive gabapentin 300 mg capsule RxNorm: 525490 1 Capsule(s) PO TID as needed 018 2017 Inactive atorvastatin 20 mg tablet RxNorm: 527463 1 Tablet(s) PO QHS 018 2017 Inactive True Metrix Glucose Test Strip RxNorm: 1 Test Strips Miscellaneous QAM 018 2017 Inactive 50/container Calcium 600-D3 Plus 600 mg calcium-800 unit-50 mg tablet RxNorm: 1 Tablet(s) PO daily take an additonal tablet for itching. 018 2017 Inactive hydrochlorothiazide 12.5 mg tablet RxNorm: 194125 1 Tablet(s) PO QAM 018 2017 Inactive Flintstones Complete (iron) 18 mg iron chewable tablet RxNorm: 1 Tablet(s) PO daily 018 2017 Inactive True Metrix Glucose Meter RxNorm: miscellaneous 019 2018 Inactive sertraline 50 mg tablet RxNorm: 525019 1 Tablet(s) PO daily 020 2019 Inactive loperamide 2 mg tablet RxNorm: 271126 oral 019 2018 Inactive d-mannose oral powder RxNorm: PO 018 2021 Inactive Symbicort 160 mcg-4.5 mcg/actuation HFA aerosol inhaler RxNorm: 3586128 2 Puff(s) INH BID 2018 Inactive Medication Administered No Medication Administered data Procedures Procedure Codes Date Hypertension CPT-4: HTN 08/17/2022 Admin pneumococ vac CPT-4: G0009 08/17/2022 PNEUMOCOCCAL VACC 23 JUNO IM CPT-4: 82017 08/03 Hypertension Hypertension Follow Up Plan/Lifestyle modification weight reduction, Hypertension Follow Up Plan/Lifestyle modification including reduce salt intake CPT-4: HTNUnknown 08/17/2022 [place] Assessment CPT-4: DSWA 04/02 Patient Health [...] CPT-4: VACP Fall Risk Assessment SNOMED CT: 33674707 4 CPT-4: DFRA 01/13/2021 [place] [facility] Assessment CPT-4: DSWA 12/01 Urinalysis, dip stick CPT-4: 13449 09/24/2020 Patient Health Questionnaire CPT-4: DPHQ Electrocardiogram CPT-4: 19173 05/14/2020 Tobacco Assessment/Screening CPT-4: TCA Fall Risk Assessment SNOMED CT: 61548989 4 CPT-4: DFRA 01/01/2020 Functional Assessment CPT-4: DFA 01/01/2020 [place] [facility] Assessment CPT-4: DSWA 11/04 Patient Health Questionnaire CPT-4: DPHQ [place] Assessment CPT-4: DSWA 10/03 Hypertension CPT-4: HTN 10/17/2019 Fall Risk Assessment SNOMED CT: 07789040 4 CPT-4: DFRA 09/19/2019 Functional Assessment CPT-4: DFA 09/19/2019 Urinalysis, dip stick CPT-4: 26106 06/21/2019 Tobacco Assessment/Screening CPT-4: TCA Patient Health Questionnaire CPT-4: DPHQ AHA/REBECCA Classification Assessment CPT-4: DAHA 04/25/2019 Controlled Substance Report CPT-4: CTRSU 04/03 Urinalysis, dip stick CPT-4: 60611 03/28/2019 Urinalysis, dip stick CPT-4: 91817 03/28/2019 B4A-Rrndmrwxgazbvxi CPT-4: 18292 Unknown M7Q-Jkbhllefqunqasf CPT-4: 18588 Unknown M4R-Yoexqhunjmmugtk CPT-4: 18480 Unknown V2Q-Xdmmhxyrwguxyev CPT-4: 61659 Unknown Q1C-Bneywuqpjoaodyx CPT-4: 82526 Unknown E7X-Xxldmwluzvazcfw CPT-4: 49711 Unknown T9A-Yjtavomayvfehji CPT-4: 94982 Unknown M5M-Zbafawtcndzzghq CPT-4: 52621 Unknown X3O-Eawotrnkyubiwiq CPT-4: 91872 Unknown K9X-Xvumdzqjlywzdnb CPT-4: 60302 Unknown Gynecology Referral SNOMED CT: 273260060 CPT-4: R14 Unknown Vital Signs Date Vital 08/17/2022 Blood Pressure 1: 126/82 Code: 8480-6 BMI: 53.9 Code: 49630-3 Heart Rate 1: 81 bpm Height: 4'11 Code: 8302-2 Respiratory Rate: 16 bpm SpO2: 99% Temperature: 36.3 (C) / 97.3 (F) Weight: 266 lbs 12 oz Code: 76694-6 Reason For Visit Reason For Visit Effective Dates Notes sores 08/17/2022 diabetes mellitus 08/17/2022 hypertension 08/17/2022 Interim health update 08/17/2022 Encounters Encounter Performer Location Location Address Codes [place] e ([id number]) HOME VISIT EST PATIENT Diagnosis: Type 2 diabetes mellitus with peripheral neuropathy[ICD10: E11.42] Diagnosis: Hypertension[ICD1 0: I10] Diagnosis: Adult BMI 50.0-59.9 kg/sq m[ICD10: Z68.43] Diagnosis: Fungal infection of skin[ICD10: B36.9] Diagnosis: Encounter for immunization[ICD1 0: Z23] Diagnosis: Influenza vaccine refused[ICD10: Z28.21] Anna Culver [place] Office [address] [facility] [address] [place] [address] CPT-4: 08780 08/17/2022 Plan of Care Planned Activity Notes Codes Status Date Visit Plan: I10 Essential (prima ry) hypertension, BP stable, will continue lisinopril, HCTZ 07/02/20 Echo: EF 60%, mild conc. LVH 05/14/20 EKG: NSR 05/14/20 Noct. Pulse Ox.: 7 min. < 89% SpO2 continue with [facility] [employer] Josh Simon MD G47.33 Obstructive sleep apnea (adult), J45.909 Asthma breathing stable CPAP use continues-was changed to nasal pillow mask at last pulmonogy visit, patient feels this has been helpful continue utilization of Symbicort, albuterol via neb. or MDI q 4 hrs. prn dyspnea, continue with [employer] Jose BOWMAN last visit 05/31/2022-visit note reviewed previously E11.42 Type 2 diabetes mellitus with peripheral neuropathy, Z68.43 Adult BMI 50.0-59.9 kg/sq m stable glucose monitor range 99-143 - testing bid FBS 102 this morning continue Ozempic 1mg per week and gabapentin 06/23/2022 Hgb A1C 5.8, GFR 94 11/02/21 HgbA1C 5.6, GFR >100 continue with Kerrie Pandya OD at [facility] (06/30/21) Discussed benefits of weight loss clinic-patient [...] has been replaced with [employer] continue with [facility] [place] B36.9-111.9 Fungal infection of skin inner left [...] diclogenac top gel 1% qid prn arthralgia/myalgia 08/17/2022 Patient Education: Hypertension Completed 08/17/2022 Patient Education: Patient Medication Summary Completed 08/17/2022 Patient Education: Diabetes Complete d 08/17/2022 Patient Education: Obesity Completed 08/17/2022 Patient Education: VIS - Pneumo (23 Valent) Completed 08/17/2022 Appointment: Anna Culver WPtel: [address] [place] [address] E410 06/23/2022 Appointment: Chivo Bishop WPtel: [address] [place] [address] E410 04/19/2022 Appointment: Chivo Bishop WPtel: [address] [place] [address] E410 02/11/2022 Appointment: Mikey Nair WPtel: [facility]3 [facility] 202[address] [id number] [place] E410 12/03/2021 Appointment: Chivo Bishop WPtel: [address] [place] [address] E410 11/02/2021 Appointment: Chivo Bishop WPtel: [address] [place] [address] E410 10/07/2021 Appointment: Chivo Bishop WPtel: [address] [place] [address] ETV 09/10/2021 Appointment: Chivo Bishop WPtel: [id number] [place] [address] ETV 08/13/2021 Appointment: Chivo Bishop WPtel: [address] [place] [address] ETV 07/06/2021 Appointment: Chivo Bishop WPtel: [address] [place] [address] PHTV 06/10/2021 Appointment: Anna Culver WPtel: [address] [place] [address] ETV 06/02/2021 Appointment: Chivo Bishop WPtel: [address] [place] [address] ETV 05/20/2021 Appointment: Anna Culver WPtel: [address] [place] [address] ETV 04/28/2021 Appointment: Chivo Bishop WPtel: [address] [place] [address] ETV 04/15/2021 Appointment: Anna Culver WPtel: [address] [place] [address] E410 04/01/2021 Appointment: Anna Culver WPtel: [address] [place] [address] ETV 03/24/2021 Appointment: Anna Culver WPtel: [address] [place] [address] ETV 03/13/2021 Appointment: Anna Culver WPtel: [address] [place] [address] E410 02/11/2021 Appointment: Chivo Bishop WPtel: [address] [place] [address] E410 01/29/2021 Appointment: Anna Culver WPtel: [phone] [place] [address] [place] ETV 01/13/2021 Appointment: Anna Culver WPtel: [address] [place] [address] [place] E410 12/17/2020 Appointment: Chivo Bishop WPtel: [address] [place] [address] [place] ETV 11/28/2020 Appointment: Anna Culver WPtel: [address] [place] [address] [place] ETV 11/24/2020 Appointment: Anna Culver WPtel: [address] [place] [address] E410 10/29/2020 Appointment: Anna Culver WPtel: [address] [place] [address] E410 09/24/2020 Appointment: Anna Culver WPtel: [address] [place] [address] ETV 08/26/2020 Appointment: Anna Culver WPtel: [address] [place] [address] ETV 08/19/2020 Appointment: Anna Culver WPtel: [address] [place] [address] [place] ETV 07/22/2020 Appointment: Anna Culver WPtel: [address] [place] [address] [place] ETV 07/08/2020 Appointment: Gianna Birmingham MCt: [facility]7 [facility] 100 [id number] [place] ECHO 07/02/2020 Appointment: Anna Culver WPtel: [address] [place] [address] E452 06/11/2020 Appointment: Anna Culver WPtel: [address] [place] [address] [place] E452 05/14/2020 Appointment: Anna Culver WPtel: [phone] [place] [address] E452 04/17/2020 Appointment: Anna Culver WPtel: [id number] [place] [address] E452 03/21/2020 Appointment: Anna Culver WPtel: [address] [place] [address] E452 02/14/2020 Appointment: Anna Culver WPtel: [address] [place] [address] E452 01/24/2020 Appointment: Anna Culver WPtel: [address] [place] [address] E452 01/01/2020 Appointment: Anna Culver WPtel: [address] [place] [address] E452 11/28/2019 Appointment: Anna Culver WPtel: [address] [place] [address] E452 10/17/2019 Appointment: Anna Culver WPtel: [address] [place] [address] E452 09/19/2019 Appointment: Sudha Hernadez WPtel: [address] [id number] E452 07/04/2019 Appointment: Sudah Hernadez WPtel: 190 [facility] [id number] E452 06/21/2019 Appointment: Charlene Oropeza WPtel: [address] [id number] E452 05/24/2019 Appointment: Mallory Delgado E452 04/27/2019 Appointment: Charlene Oropeza WPtel: [address] [facility] b [id number] E452 04/25/2019 Appointment: Rasta Palafox WPtel: [address] [facility] [id number] E452 03/28/2019 Appointment: Rasta Palafox WPtel: [address] [facility] b [id number] E452 02/14/2019 Appointment: Rasta Palafox WPtel: [address] [place] [address] b [id number] E452 01/31/2019 Appointment: Rasta Palafox WPtel: 190 [facility] [id number] E420 12/27/2018 Referral: Pending Gynecology Referral Information Referral Processed Referral: Pending Pulmonology Referral Information Referral Processed Referral: Pending Psychiatry Referral Information Referral Initiated Referral: Pending Respiratory Services Referral Information Referral Initiated Referral: Pending Ophthalmology Referral Information Referral Initiated Referral: [facility] WPtel: [address] [place] [address] Primary Care Pediatrician placed a call out to the patient to notify her that it has been recommended that she be seen by a urologist. Patient agreed to be seen, does not have a provider of choice and no transportation issues. Primary Care Pediatrician faxed referral and clinical notes to [facility] in [place], [place] near the patient's home. Patient to [...] and prefers a provider in the [facility]. Primary Care Pediatrician placed a call out to everyone listed in the area and the only location that was able to accept the patient's insurance was [address] [address] and spoke with Maylin. Maylin asked that the patient's referral, face sheet and visit notes be faxed to . Primary Care Pediatrician faxed over requested documents. Patient appointment confirmation letter generated and mailed to her home address. Patient to call to schedule an appointment. Processed Referral: [facility] WPtel: [address] [facility] [address] [place] [address] Patient notified that it has been advised that she be seen by Neurology. Patient agreed to be seen and prefers to be seen by a provider in the [place], [place] area. Patient denies any concerns with transportation, and prefers to schedule her own appointment. Primary Care Pediatrician placed a call out to [facility] and spoke with Neeraj P: who confirmed that their office is able to accept new patients and the patient's insurance. After confirming the providers fax number, technical report writer faxed over the patient's referral, [...] 7 min. < 89% SpO2; continue with [facility] [employer] Josh Simon MD; G47.33 Obstructive sleep apnea (adult), J45.909 Asthma breathing stable CPAP use continues-was changed to nasal pillow mask at last pulmonogy visit, patient feels this has been helpful continue utilization of Symbicort, albuterol via neb. or MDI q 4 hrs. prn dyspnea, continue with [employer] Jose BOWMAN; last visit 05/31/2022-visit note reviewed previously E11.42 Type 2 diabetes mellitus with peripheral neuropathy, Z68.43 Adult BMI 50.0-59.9 kg/sq m stable glucose monitor range 99-143 - testing bid; FBS 102 this morning continue Ozempic 1mg per week and gabapentin; 06/23/2022 Hgb A1C 5.8, GFR 94; 11/02/21 HgbA1C 5.6, GFR >100; continue with Kerrie Pandya OD at [facility] (06/30/21); Discussed benefits of weight loss clinic-patient [...] has been replaced with [employer] continue with [facility] in [place]; B36.9-111.9 Fungal infection of skin inner left [...]
--- OUTSIDE RECORDS SUMMARY | 2023-12-07 02:21 | XMS_ITS | CCD ---
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 Photographic Reproduction Technician Name Role Phone Palomo KING, Anna Primary Care Provider Unav ailable Unavailable Chronic Care Management Unavaila ble Summary Purpose DataExchange Insurance Providers Payer name Policy type / Coverage type Covered republican ID Effective Begin Date Effective End Date SUKI MAYO [id number] Unknown Unknown Family history Mother Diagnosis Age [...] Unknown Disability 05/31/[address]: 605866040 Has never s moked or chewed tobacco 05/31/[address]: 773859693 Never drinks alco hol 05/31/2018 Has the patient ever used illegal drugs? Unknown Has never used illegal drugs 05/31/2018 DNR Order/ Advanced Directive Unknown Full Code 05/31/2018 Allergies, Adverse Reactions, Alerts Substance Reaction Codes Entered Date Inactivated Date Status OxyContin itch, RxNorm: 534701 01/13/2021 No Inactive Da te Active *No [...] E78. 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 anti-inflammatories (NSAID) [...] ICD-10: R51 ICD-9: 784.0 10/03/2018 Inactive Other residential (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 ICD-10: Z79.899 ICD-9: V58.69 04/25/2019 Inactive Type 2 diabetes mellitus wit hout complications ICD-10: E11.9 ICD-9: 250.00 10/03/2018 Inactive Wheezing ICD-10: R06.2 ICD-9: 786.07 08/08/2018 Inactive Abnormal urine finding ICD-10: R82.90 ICD-9: 791.9 09/24/2020 Resolved Abrasion of toe ICD-10: S90.416A ICD-9: 917.0 02/14/2020 Resolved [place] eye ICD-10: H10.029 ICD-9: 372.03 12/29/2019 Resolved [...] Status Fill Instructions Alcohol Prep Pads RxNorm: 106797 USE EACH MORNING 022 2021 Inactive E11.42 clotrimazole 1 % topical cream RxNorm: 558534 Apply 1 Application Topical two times a day as needed apply to affected area(s) twice daily until healed 2021 Inactive Victoza 2-Sebastián 0.6 mg/0.1 mL (18 mg/3 mL) subcutaneous pen injector RxNorm: 511666 Inject 0.6-1.8 Milligram(s) Subcutaneous once a week Inject 0.6mg/0.1ml week one, 1.2mg/0.2ml week two, 1.8/0.3ml weekly thereafter 2021 Inactive ibuprofen 800 mg tablet RxNorm: 088751 Take 1 Tablet(s) Oral Q8H as needed for pain take with food No Stop Date Active Ozempic 1 mg/dose (4 mg/3 mL) subcutaneous pen injector RxNorm: 1593137 Take 1 Unit Dose Subcutaneous QWeek Tuesday2021 Inactive lisinopril 2.5 mg tablet RxNorm: 753574 Take 1 Tablet(s) Oral every day 2021 Inactive lisinopril 2.5 mg tablet RxNorm: 634490 Take 1 Tablet(s) Oral every day 022 2022 Inactive hydrochlorothiazide 25 mg tablet RxNorm: 060608 Take 1 Tablet(s) Oral every day 2021 Inactive Ozempic 1 mg/dose (4 mg/3 mL) subcutaneous pen injector RxNorm: 7021924 Take 1 Unit Dose Subcutaneous QWeek 2021 Inactive famotidine 20 mg tablet RxNorm: 135393 Take 1 Tablet(s) Oral every morning 2021 Inactive levothyroxine 50 mcg tablet RxNorm: 874265 Take 1 Tablet(s) Oral every day 2021 Inactive atorvastatin 20 mg tablet RxNorm: 903618 Take 1 Tablet(s) Oral every night at bedtime 2021 Inactive Cleocin T 1 % lotion RxNorm: 259009 Take 2 Gram(s) Topical every day 2021 Inactive Cleocin T 1 % lotion RxNorm: 888304 Take 2 Gram(s) Topical every day 022 2021 Inactive Ozempic 1 mg/dose (4 mg/3 mL) subcutaneous pen injector RxNorm: 9112515 Take 1 Unit Dose Subcutaneous QWeek 022 2021 Inactive Ozempic 0.25 mg or 0.5 mg (2 mg/1.5 mL) subcutaneous pen injector RxNorm: 2913999 INJECT 0.5 MGS SUBCUTANEOUSLY EVERY WEEK 022 2021 Inactive omeprazole 20 mg capsule,delayed release RxNorm: 753554 Take 1 Capsule(s) Oral every evening 022 2021 Inactive levothyroxine 50 mcg tablet RxNorm: 201805 Take 1 Tablet(s) Oral every day 022 2021 Inactive atorvastatin 20 mg tablet RxNorm: 227778 Take 1 Tablet(s) Oral every night at bedtime 2021 Inactive This refill negates all other refills of this medication lisinopril 2.5 mg tablet RxNorm: 481209 Take 1 Tablet(s) Oral every day 2021 Inactive gabapentin 300 mg capsule RxNorm: 258567 Take 1 Capsule(s) Oral three times a day 022 2021 Inactive montelukast 10 mg tablet RxNorm: 432401 Take 1 Tablet(s) Oral every day 2021 Inactive cholecalciferol (vitamin D3) 50 mcg (2,000 unit) tablet RxNorm: 159372 Take 1 Tablet(s) Oral every day 2022 Inactive Myrbetriq 50 mg tablet,extended release RxNorm: 0626601 1 Tablet(s) Oral every day No Stop Date Active Ozempic 0.25 mg or 0.5 mg (2 mg/1.5 mL) subcutaneous pen injector RxNorm: 7213484 inject 0.5 milligrams subcutaneously every week 2021 Inactive Ozempic 0.25 mg or 0.5 mg (2 mg/1.5 mL) subcutaneous pen injector RxNorm: 4648546 Take 0.5 Capsule(s) Injection once a week 2021 Inactive omeprazole 20 mg capsule,delayed release RxNorm: 022663 Take 1 Capsule(s) Oral every evening 2020 Inactive Ozempic 0.25 mg or 0.5 mg (2 mg/1.5 mL) subcutaneous pen injector RxNorm: 2748876 Take 0.25 Milligram(s) Subcutaneous once a week 2021 Inactive Easy Touch Alcohol Prep Pads RxNorm: 400125 USE DIRECTED EACH MORNING 2021 Inactive Probiotic 10 billion cell capsule RxNorm: 7106168 Take 1 Capsule(s) Oral every day 2021 Inactive levothyroxine 50 mcg tablet RxNorm: 216681 Take 1 Tablet(s) Oral every day 2020 Inactive Acid Area Operations Manager (famotidine) 20 mg tablet RxNorm: 436220 Take 1 Tablet(s) Oral every morning 2020 Inactive Heartburn Relief (famotidine) 10 mg tablet RxNorm: 448792 Take 1 Tablet(s) Oral QAM 021 2020 Inactive levothyroxine 50 mcg tablet RxNorm: 763154 Take 1 Tablet(s) Oral QD 2020 Inactive Singulair 10 mg tablet RxNorm: 069042 TAKE (1) TABLET BY MOUTH DAILY 2020 Inactive metformin 1,000 mg tablet RxNorm: 756112 1 Tablet(s) Oral two times a day 2021 Inactive lisinopril 2.5 mg tablet RxNorm: 173304 Take 1 Tablet(s) Oral every day 021 2020 Inactive hydrochlorothiazide 25 mg tablet RxNorm: 692219 Take 1 Tablet(s) Oral every day 021 2020 Inactive ondansetron 4 mg disintegrating tablet RxNorm: 476222 1 Tablet(s) Oral two times a day 021 2020 Inactive Sudafed 12 Hour 120 mg tablet,extended release RxNorm: 2408354 TAKE 1 TABLET BY MOUTH EVERY 12 HOURS NEEDED 2021 Inactive Heartburn Relief (famotidine) 10 mg tablet RxNorm: 692393 Take 1 Tablet(s) Oral every morning 021 2020 Inactive omeprazole 20 mg capsule,delayed release RxNorm: 647809 1 Capsule(s) Oral every evening 021 2020 Inactive sertraline 100 mg tablet RxNorm: 817375 2 Tablet(s) Oral every day 021 2020 Inactive levothyroxine 50 mcg tablet RxNorm: 246126 TAKE (1) TABLET BY MOUTH DAILY 021 2020 Inactive metformin 500 mg tablet RxNorm: 308081 1 Tablet(s) Oral two times a day take with 500mg to equal 1000mg 021 2020 Inactive gabapentin 300 mg capsule RxNorm: 638904 TAKE 1 CAPSULE BY MOUTH THREE TIMES A DAY 021 2020 Inactive lisinopril 2.5 mg tablet RxNorm: 482719 TAKE 1 TABLET BY MOUTH DAILY 021 2020 Inactive gabapentin 300 mg capsule RxNorm: 226391 TAKE 1 CAPSULE BY MOUTH THREE TIMES A DAY 021 2020 Inactive Singulair 10 mg tablet RxNorm: 507588 TAKE (1) TABLET BY MOUTH DAILY 021 2020 Inactive metformin 1,000 mg tablet RxNorm: 150290 1 Tablet(s) Oral two times a day 021 2020 Inactive atorvastatin 40 mg tablet RxNorm: 137239 1 Tablet(s) Oral every day 021 2020 Inactive omeprazole 20 mg capsule,delayed release RxNorm: 631570 1 Capsule(s) Oral every evening 021 2020 Inactive famotidine 10 mg tablet RxNorm: 758561 1 Tablet(s) Oral every morning 021 2020 Inactive Alcohol Prep Pads RxNorm: 229100 USE EACH MORNING 021 2020 Inactive omeprazole 20 mg capsule,delayed release RxNorm: 023693 1 Capsule(s) Oral two times a day 021 2021 Inactive omeprazole 20 mg capsule,delayed release RxNorm: 207845 TAKE 1 CAPSULE BY MOUTH EVERY DAY 021 2021 Inactive Macrobid 100 mg capsule RxNorm: 953877 1 Capsule(s) Oral every 12 hours with food 2020 Inactive omeprazole 20 mg capsule,delayed release RxNorm: 139858 1 Capsule(s) Oral two times a day 2021 Inactive metformin 1,000 mg tablet RxNorm: 892970 1 Tablet(s) Oral two times a day 2020 Inactive start on September 11, 2020 metformin 500 mg tablet RxNorm: 163982 1 Tablet(s) Oral two times a day take with 500mg to equal 1000mg 2019 Inactive gabapentin 300 mg capsule RxNorm: 436109 TAKE 1 CAPSULE BY MOUTH THREE TIMES DAILY 2020 Inactive cetirizine 10 mg tablet RxNorm: 8528827 TAKE (1) TABLET BY MOUTH DAILY 2020 Inactive metformin 500 mg tablet RxNorm: 570360 1 Tablet(s) Oral two times a day 2019 Inactive loperamide 2 mg tablet RxNorm: 501080 1 Tablet(s) Oral as needed take one tablet after each loose stool, maximum of 8 tablets in 24 hours 2021 Inactive Sudafed 12 Hour 120 mg tablet,extended release RxNorm: 7774964 TAKE 1 TABLET BY MOUTH EVERY 12 HOURS NEEDED 2019 Inactive hydrochlorothiazide 25 mg tablet RxNorm: 968635 TAKE (1) TABLET BY MOUTH EVERY DAY 2019 Inactive omeprazole 20 mg capsule,delayed release RxNorm: 473054 TAKE 1 CAPSULE BY MOUTH EVERY DAY 2020 Inactive metformin 500 mg tablet RxNorm: 204307 1 Tablet(s) Oral every day 2019 Inactive True Metrix Glucose Test Strip RxNorm: 1 Test Strips Miscellaneous two times a day as needed No Stop Date Active metformin 500 mg tablet RxNorm: 114254 1 Tablet(s) Oral every 2019 Inactive diclofenac sodium 75 mg tablet,delayed release RxNorm: 317111 1 Tablet(s) PO BID 2021 Inactive This refill negates all other refills of this medication Sudafed 12 Hour 120 mg tablet,extended release RxNorm: 9470043 TAKE 1 TABLET BY MOUTH EVERY 12 HOURS NEEDED 2019 Inactive True Metrix Glucose Test Strip RxNorm: 1 Test Strips Miscellaneous every morning 020 2019 Inactive 100/container True Metrix Glucose Test Strip RxNorm: 1 Test Strips Miscellaneous QAM 020 2019 Inactive 100/container loperamide 2 mg tablet RxNorm: 867945 1 Tablet(s) Oral as needed take one tablet after each loose stool, maximum of 8 tablets in 24 hours 020 2019 Inactive cetirizine 10 mg tablet RxNorm: 9462771 1 Tablet(s) PO daily 2019 Inactive loperamide 2 mg tablet RxNorm: 834715 1 Tablet(s) Oral as needed take one tablet after each loose stool, maximum of 8 tablets in 24 hours 2019 Inactive quetiapine 100 mg tablet RxNorm: 448355 1 Tablet(s) Oral every night at bedtime 2019 Inactive levothyroxine 50 mcg tablet RxNorm: 481364 1 Tablet(s) PO daily 020 2020 Inactive gabapentin 300 mg capsule RxNorm: 269091 1 Capsule(s) PO TID 020 2019 Inactive levothyroxine 50 mcg tablet RxNorm: 567513 1 Tablet(s) PO daily 020 2019 Inactive lisinopril 2.5 mg tablet RxNorm: 181255 1 Tablet(s) PO daily 020 2020 Inactive gabapentin 300 mg capsule RxNorm: 549756 1 Capsule(s) PO TID 020 2019 Inactive cetirizine 10 mg tablet RxNorm: 7201577 1 Tablet(s) PO daily 2019 Inactive Singulair 10 mg tablet RxNorm: 166309 1 Tablet(s) PO daily 2020 Inactive gentamicin 0.3 % eye drops RxNorm: 168026 1 Drop(s) ophthalmic (eye) four times a day 2019 Inactive gentamicin 0.3 % eye drops RxNorm: 237330 1 Drop(s) ophthalmic (eye) four times a day 2019 Inactive gentamicin 0.3 % eye drops RxNorm: 671458 1 Drop(s) ophthalmic (eye) four times a day 2019 Inactive hydrochlorothiazide 25 mg tablet RxNorm: 855812 1 Tablet(s) Oral every day 2019 Inactive Sudafed 12 Hour 120 mg tablet,extended release RxNorm: 8047752 TAKE (1) TABLET BY MOUTH EVERY 12 HOURS NEEDED 2019 Inactive loperamide 2 mg tablet RxNorm: 258137 1 Tablet(s) Oral as needed take one tablet after each loose stool, maximum of 8 tablets in 24 hours 020 2019 Inactive loperamide 2 mg tablet RxNorm: 538020 1 Tablet(s) Oral as needed take one tablet after each loose stool, maximum of 8 tablets in 24 hours 2019 Inactive atorvastatin 40 mg tablet RxNorm: 527420 1 Tablet(s) Oral every day 2020 Inactive quetiapine 100 mg tablet RxNorm: 172042 1 Tablet(s) Oral every night at bedtime 2019 Inactive sertraline 100 mg tablet RxNorm: 844240 1 Tablet(s) Oral 020 2019 Inactive omeprazole 20 mg capsule,delayed release RxNorm: 510581 1 Capsule(s) Oral every day 2019 Inactive amoxicillin 250 mg capsule RxNorm: 309557 1 Capsule(s) Oral three times a day 020 2019 Inactive multivitamin with iron-mineral tablet RxNorm: 1 Tablet(s) Oral every day 020 2021 Inactive cetirizine 10 mg tablet RxNorm: 0444728 1 Tablet(s) PO daily 020 2019 Inactive This refill negates all other refills of this medication. Please do not auto refill Singulair 10 mg tablet RxNorm: 442021 1 Tablet(s) PO daily 2019 Inactive This refill negates all other refills of this medication gabapentin 300 mg capsule RxNorm: 123483 1 Capsule(s) PO TID 2019 Inactive lisinopril 2.5 mg tablet RxNorm: 733767 1 Tablet(s) PO daily 2019 Inactive levothyroxine 50 mcg tablet RxNorm: 571181 1 Tablet(s) PO daily 2019 Inactive This refill negates all other refills of this medication hydrochlorothiazide 25 mg tablet RxNorm: 988344 1 Tablet(s) Oral every day 2019 Inactive fenugreek seed extract 500 mg capsule RxNorm: 1 Capsule(s) Oral three times a day 2021 Inactive Alcohol Prep Pads RxNorm: 206959 1 Patch TOP QAM 2020 Inactive loperamide 2 mg tablet RxNorm: 323110 1 Tablet(s) Oral as needed take one [...] 2019 Inactive hydrochlorothiazide 25 mg tablet RxNorm: 624409 1 Tablet(s) Oral every day 019 2019 Inactive Sudafed 12 Hour 120 mg tablet,extended release RxNorm: 4831932 1 Tablet(s) Oral every 12 hours as needed 2018 Inactive omeprazole 20 mg capsule,delayed release RxNorm: 764442 1 Capsule(s) Oral every day 019 2019 Inactive Sudafed 12 Hour 120 mg tablet,extended release RxNorm: 6792454 1 Tablet(s) Oral every 12 hours as needed 019 2018 Inactive pantoprazole 40 mg tablet,delayed release RxNorm: 716275 1 Tablet(s) Oral every day 2018 Inactive discontinue any other H2Blkr. and PPI albuterol sulfate 2.5 mg/3 mL (0.083 %) solution for nebulization RxNorm: 786360 1 Vial Inhalation every four hours as needed as needed for dyspnea 2019 Inactive 60/box. This refill negates all other refills of this medication. Please do not fill early. Please do not auto refill. Symbicort 160 mcg-4.5 mcg/actuation HFA aerosol inhaler RxNorm: 1563974 2 Puff(s) INH BID No Stop Date Active Alcohol Prep Pads RxNorm: 235174 1 Patch TOP QAM 019 2019 Inactive Ventolin HFA 90 mcg/actuation aerosol inhaler RxNorm: 748498 2 Puff(s) INH QID 019 2019 Inactive Please do not fill early. Please do not auto refill. This refill negates all other refills of this medication True Metrix Glucose Test Strip RxNorm: 1 Test Strips Miscellaneous QAM 019 2019 Inactive 100/container atorvastatin 40 mg tablet RxNorm: 372353 1 Tablet(s) Oral every day 019 2019 Inactive buspirone 7.5 mg tablet RxNorm: 290341 1 Tablet(s) PO BID 019 2020 Inactive This refill negates all other refills of this medication hydrochlorothiazide 12.5 mg tablet RxNorm: 488128 1 Tablet(s) PO QAM 019 2019 Inactive levmetamfetamine 50 mg nasal inhaler RxNorm: 1 Unit(s) NASAL Q3-4H Do not use more than every 3 hours or 8 times/24hours 2021 Inactive Please do not auto refill. This refill negates all other refills of this medication Ventolin HFA 90 mcg/actuation aerosol inhaler RxNorm: 348999 2 Puff(s) INH QID 2018 Inactive Please do not fill early. Please do not auto refill. This refill negates all other refills of this medication Singulair 10 mg tablet RxNorm: 785025 1 Tablet(s) PO daily 019 2019 Inactive This refill negates all other refills of this medication cetirizine 10 mg tablet RxNorm: 1709631 1 Tablet(s) PO daily 019 2019 Inactive This refill negates all other refills of this medication. Please do not auto refill levothyroxine 50 mcg tablet RxNorm: 226577 1 Tablet(s) PO daily 019 2019 Inactive This refill negates all other refills of this medication diclofenac sodium 75 mg tablet,delayed release RxNorm: 162371 1 Tablet(s) PO BID 019 2019 Inactive This refill negates all other refills of this medication ranitidine 150 mg tablet RxNorm: 448124 1 Tablet(s) PO BID 019 2018 Inactive This refill negates all other refills of this medication Calcium 600-D3 Plus (mag-zinc) 600 mg calcium-800 unit-50 mg tablet RxNorm: 1 Tablet(s) PO daily take an additonal tablet for itching. 092018 Inactive This refill negates all other refills of this medication albuterol sulfate 2.5 mg/3 mL (0.083 %) solution for nebulization RxNorm: 454931 1 Vial INH QID 2018 Inactive 60/box. This refill negates all other refills of this medication. Please do not fill early. Please do not auto refill. lisinopril 2.5 mg tablet RxNorm: 199354 1 Tablet(s) PO daily 019 2019 Inactive gabapentin 300 mg capsule RxNorm: 936294 1 Capsule(s) PO TID 019 2019 Inactive atorvastatin 20 mg tablet RxNorm: 560381 1 Tablet(s) PO QHS 2018 Inactive This refill negates all other refills of this medication TRUEplus Lancets 30 gauge RxNorm: 1 Lancets Miscellaneous QAM 2018 Inactive 100/box gabapentin 300 mg capsule RxNorm: 253200 1 Capsule(s) PO TID 019 2018 Inactive Flintstones Complete (iron) 18 mg iron chewable tablet RxNorm: 1 Tablet(s) PO daily 2021 Inactive This refill negates all other refills of this medication gabapentin 300 mg capsule RxNorm: 012406 1 Capsule(s) PO TID as needed 2018 Inactive True Metrix Glucose Test Strip RxNorm: 1 Test Strips Miscellaneous QAM 019 2018 Inactive 100/container Alcohol Prep Pads RxNorm: 551676 1 Patch TOP QAM 2018 Inactive TRUEplus Lancets 30 gauge RxNorm: 1 Lancets Miscellaneous QAM 019 2018 Inactive 100/box lisinopril 2.5 mg tablet RxNorm: 676946 1 Tablet(s) PO daily 019 2018 Inactive ranitidine 150 mg tablet RxNorm: 020684 1 Tablet(s) PO BID 019 2018 Inactive This refill negates all other refills of this medication albuterol sulfate 2.5 mg/3 mL (0.083 %) solution for nebulization RxNorm: 133399 1 Vial INH QID 019 2018 Inactive [...] this medication gabapentin 300 mg capsule RxNorm: 961019 1 Capsule(s) PO TID as needed 019 2018 Inactive atorvastatin 20 mg tablet RxNorm: 372739 1 Tablet(s) PO QHS 019 2018 Inactive This refill negates all other refills of this medication trazodone 50 mg tablet RxNorm: 295128 1 Tablet(s) PO QHS 019 2018 Inactive This refill negates all other refills of this medication Ventolin HFA 90 mcg/actuation aerosol inhaler RxNorm: 669065 2 Puff(s) INH QID 019 2018 Inactive Please do not fill early. Please do not auto refill. This refill negates all other refills of this medication Calcium 600-D3 Plus 600 mg calcium-800 unit-50 mg tablet RxNorm: 1 Tablet(s) PO daily take an additonal tablet for itching. 019 2018 Inactive This refill negates all other refills of this medication Singulair 10 mg tablet RxNorm: 959449 1 Tablet(s) PO daily 019 2018 Inactive This refill negates all other refills of this medication buspirone 7.5 mg tablet RxNorm: 359644 1 Tablet(s) PO BID 019 2018 Inactive This refill negates all other refills of this medication diclofenac sodium 75 mg tablet,delayed release RxNorm: 706359 1 Tablet(s) PO BID 019 2018 Inactive This refill negates all other refills of this medication hydrochlorothiazide 12.5 mg tablet RxNorm: 973637 1 Tablet(s) PO QAM 019 2018 Inactive metoprolol succinate ER 50 mg tablet,extended release 24 hr RxNorm: 946663 1 Tablet(s) PO daily 019 2018 Inactive This refill negates all other refills of this medication levothyroxine 50 mcg tablet RxNorm: 549115 1 Tablet(s) PO daily 019 2018 Inactive This refill negates all other refills of this medication cetirizine 10 mg tablet RxNorm: 5986483 1 Tablet(s) PO daily 019 2018 Inactive This refill negates all other refills of this medication. Please do not auto refill Flintstones Complete (iron) 18 mg iron chewable tablet RxNorm: 1 Tablet(s) PO daily 019 2018 Inactive This refill negates all other refills of this medication buspirone 7.5 mg tablet RxNorm: 565254 1 Tablet(s) PO BID 019 2018 Inactive cetirizine 10 mg tablet RxNorm: 7495483 1 Tablet(s) PO daily 2018 Inactive Guaiasorb DM 10 mg-100 mg/5 mL oral liquid RxNorm: 789433 10 Milliliter(s) PO As needed every 4 hr 2018 Inactive Vicks Vaporub 4.7 %-1.2 %-2.6 % topical ointment RxNorm: 9007751 1 Application TOP TID 2018 Inactive levmetamfetamine 50 mg nasal inhaler RxNorm: 1 Unit(s) NASAL Q3-4H 018 2017 Inactive sertraline 50 mg tablet RxNorm: 346723 1 Tablet(s) PO daily 018 2018 Inactive Please note dose trazodone 50 mg tablet RxNorm: 535888 1 Tablet(s) PO QHS 018 2018 Inactive sertraline 50 mg tablet RxNorm: 811217 1 Tablet(s) PO daily 018 2017 Inactive amoxicillin 500 mg tablet RxNorm: 240595 1 Tablet(s) PO Q12H 018 2017 Inactive albuterol sulfate 2.5 mg/3 mL (0.083 %) solution for nebulization RxNorm: 611114 1 Vial INH QID 018 2018 Inactive 60/box. Please do not fill early. Please do not auto refill. Prozac 10 mg capsule RxNorm: 699993 1 Capsule(s) PO daily 018 2017 Inactive buspirone 7.5 mg tablet RxNorm: 276220 1 Tablet(s) PO BID 018 2018 Inactive gabapentin 300 mg capsule RxNorm: 648953 1 Capsule(s) PO TID as needed 2018 Inactive hydrochlorothiazide 12.5 mg tablet RxNorm: 244573 1 Tablet(s) PO QAM 018 2018 Inactive ranitidine 150 mg tablet RxNorm: 220527 1 Tablet(s) PO BID 2018 Inactive Macrobid 100 mg capsule RxNorm: 270310 1 Capsule(s) PO Q12H 018 2017 Inactive Singulair 10 mg tablet RxNorm: 948538 1 Tablet(s) PO daily 018 2018 Inactive Ventolin HFA 90 mcg/actuation aerosol inhaler RxNorm: 1247732 2 Puff(s) INH QID 018 2018 Inactive Singulair 10 mg tablet RxNorm: 661223 1 Tablet(s) PO daily 018 2017 Inactive buspirone 7.5 mg tablet RxNorm: 079804 1 Tablet(s) PO BID 018 2017 Inactive Prozac 10 mg capsule RxNorm: 593694 1 Capsule(s) PO daily 018 2017 Inactive diclofenac sodium 75 mg tablet,delayed release RxNorm: 453637 1 Tablet(s) PO BID 018 2017 Inactive lisinopril 2.5 mg tablet RxNorm: 601764 1 Tablet(s) PO daily 018 2017 Inactive Neilmed Pediatric Sinus Rinse Refill packet RxNorm: 1 Unit Dose NASAL PRN 018 2021 Inactive metoprolol succinate ER 50 mg tablet,extended release 24 hr RxNorm: 172612 1 Tablet(s) PO daily 018 2017 Inactive levothyroxine 50 mcg tablet RxNorm: 253458 1 Tablet(s) PO daily 018 2017 Inactive TRUEplus Lancets 30 gauge RxNorm: 1 Lancets Miscellaneous QAM 018 2017 Inactive 100/box Ventolin HFA 90 mcg/actuation aerosol inhaler RxNorm: 529673 2 Puff(s) INH QID 018 2017 Inactive Aleve 220 mg capsule RxNorm: 3690549 1 Capsule(s) PO BID 018 2018 Inactive ranitidine 150 mg tablet RxNorm: 491910 1 Tablet(s) PO BID 018 2017 Inactive gabapentin 300 mg capsule RxNorm: 201040 1 Capsule(s) PO TID as needed 018 2017 Inactive atorvastatin 20 mg tablet RxNorm: 497801 1 Tablet(s) PO QHS 018 2017 Inactive True Metrix Glucose Test Strip RxNorm: 1 Test Strips Miscellaneous QAM 018 2017 Inactive 50/container Calcium 600-D3 Plus 600 mg calcium-800 unit-50 mg tablet RxNorm: 1 Tablet(s) PO daily take an additonal tablet for itching. 018 2017 Inactive hydrochlorothiazide 12.5 mg tablet RxNorm: 664076 1 Tablet(s) PO QAM 018 2017 Inactive Flintstones Complete (iron) 18 mg iron chewable tablet RxNorm: 1 Tablet(s) PO daily 018 2017 Inactive True Metrix Glucose Meter RxNorm: miscellaneous 019 2018 Inactive sertraline 50 mg tablet RxNorm: 697390 1 Tablet(s) PO daily 020 2019 Inactive loperamide 2 mg tablet RxNorm: 271545 oral 019 2018 Inactive d-mannose oral powder RxNorm: PO 018 2021 Inactive Symbicort 160 mcg-4.5 mcg/actuation HFA aerosol inhaler RxNorm: 0640673 2 Puff(s) INH BID 2018 Inactive Medication Administered No Medication Administered data Procedures Procedure Codes Date Hypertension CPT-4: HTN 08/17/2022 [place] Assessment CPT-4: DSWA 04/02 Patient Health [...] CPT-4: VACP Fall Risk Assessment SNOMED CT: 84145977 4 CPT-4: DFRA 01/13/2021 [place] Assessment CPT-4: DSWA 12/01 Urinalysis, dip stick CPT-4: 21363 09/24/2020 Patient Health Questionnaire CPT-4: DPHQ Electrocardiogram CPT-4: 31341 05/14/2020 Tobacco Assessment/Screening CPT-4: TCA Fall Risk Assessment SNOMED CT: 24379136 4 CPT-4: DFRA 01/01/2020 Functional Assessment CPT-4: DFA 01/01/2020 [place] Assessment CPT-4: DSWA 11/04 Patient Health Questionnaire CPT-4: DPHQ [place] Assessment CPT-4: DSWA 10/03 Hypertension CPT-4: HTN 10/17/2019 Fall Risk Assessment SNOMED CT: 81546200 4 CPT-4: DFRA 09/19/2019 Functional Assessment CPT-4: DFA 09/19/2019 Urinalysis, dip stick CPT-4: 30879 06/21/2019 Tobacco Assessment/Screening CPT-4: TCA Patient Health Questionnaire CPT-4: DPHQ AHA/REBECCA Classification Assessment CPT-4: DAHA 04/25/2019 Controlled Substance Report CPT-4: CTRSU 04/03 Urinalysis, dip stick CPT-4: [id number] 03/28/2019 Urinalysis, dip stick CPT-4: 10648 03/28/2019 T2W-Ztwqkokiulymdxv CPT-4: 43902 Unknown B0P-Rsslykilefjljeu CPT-4: 04496 Unknown S9N-Pwvbdagjpbfmmif CPT-4: 79232 Unknown G8I-Esombcwvzfnxcre CPT-4: 46681 Unknown M8Q-Wmqythrtfroekif CPT-4: 08756 Unknown F0Y-Npglptkfcpoudhp CPT-4: 53945 Unknown N6G-Mopdgxxvzkrgbqw CPT-4: 65800 Unknown Q6I-Mpbmavhwxkfrzaj CPT-4: 04808 Unknown Z3A-Xhdwfpdkbasvskf CPT-4: 21860 Unknown A2B-Srvytxbnysdkcdq CPT-4: 50281 Unknown Gynecology Referral SNOMED CT: [id number] CPT-4: R14 Unknown Reason For Visit No Reason For Visit data Plan of Care Planned Activity Notes Codes Status Date Referral: Pending Gynecology Referral Information Referral Processed Referral: Pending Pulmonolog y Referral Information Referral Processed Referral: Pending Psychiatry Referral Information Referral Initiated Referral: Pending Respirator y Services Referral Information Referral Initiated Referral: Pending Ophthalmol ogy Referral Information Referral Initiated Referral: [facility] WPtel: [address] [facility] [place] Order Processing Clerk placed a call out to the patient to notify her that it has been recommended that she be seen by a urologist. Patient agreed to be seen, does not have a provider of choice and no transportation issues. Order Processing Clerk faxed referral and clinical notes to [facility] in [place], [place] near the patient's home. Patient to [...] prefers a provider in the [place] or [place] area. Order Processing Clerk placed a call out to everyone listed in the area and the only location that was able to accept the patient's insurance was [address] [id number] and spoke with Maylin. Maylin asked that the patient's referral, face sheet and visit notes be faxed to . Order Processing Clerk faxed over requested documents. Patient appointment confirmation letter generated and mailed to her home address. Patient to call to schedule an appointment. Processed Referral: [facility] WPtel: [address] [facility] [address] [place], [place] [id number] [place] Patient notified that it has been advised that she be seen by Neurology. Patient agreed to be seen and prefers to be seen by a provider in the [place], [place] area. Patient denies any concerns with transportation, and prefers to schedule her own appointment. Order Processing Clerk placed a [facility] to [facility] [...]
--- OUTSIDE RECORDS SUMMARY | 2023-12-07 02:22 | XMS_ITS | CCD ---
Author Name Leena Culver NP Address [id number] [place] [address] [place] [id number] Phone Organization [facility] Phone Care Team Providers Care Chemist Steroids Name Role Phone Anna Culver NP Primary Care Provider Unav ailable Unavailable Chronic Care Management Unavaila ble Summary Purpose DataExchange Insurance Providers Payer name Policy type / Coverage type Covered alliance party ID Effective Begin Date Effective End Date SUKI MAYO [id number] Unknown Unknown Family history Mother Diagnosis Age [...] Unknown Disability 05/31/[address]: 136079496 Has never s moked or chewed tobacco 05/31/[address]: 157663922 Never drinks alco hol 05/31/2018 Has the patient ever used illegal drugs? Unknown Has never used illegal drugs 05/31/2018 DNR Order/ Advanced Directive Unknown Full Code 05/31/2018 Allergies, Adverse Reactions, Alerts Substance Reaction Codes Entered Date Inactivated Date Status OxyContin itch, RxNorm: 126546 01/13/2021 No Inactive Da te Active *No known food allergies Unknown 09/06/2018 No I nactive Date Active Methylprednisolone hives RxNorm: 6902 09/06/2018 No Inac tive Date Active Problems Condition Codes Effective Dates Condition St atus Adult BMI 50.0-59.9 kg/sq m ICD-10: Z68. 43 ICD-9: V85.43 05/30/2018 Active Encounter for screening for tobacco use ICD-10: Z01.89 ICD-9: V72.85 2022 Active Hypertensive heart disease ICD-10: I11.9 ICD-9: 402.90 12/03/2021 Active Major depression, recurrent ICD-10: F33. 9 ICD-9: 296.30 06/23/2022 Active Open wound of right middle finger ICD-10 : S61.A ICD-9: 883.0 2022 Active Type 2 diabetes mellitus wit h peripheral neuropathy ICD-10: E11.42 ICD-9: 250.60 11/28/2019 Active Encounter for immunization ICD-10: Z23 ICD-9: V04.81 08/17/2022 Active Fungal infection of skin ICD-10: B36.9 ICD-9: 111.9 08/17/2022 Active Hypertension ICD-10: I10 ICD-9: 401.9 12/03/2021 Active Influenza vaccine refused ICD-10: Z28.21 ICD-9: V64.06 06/23/2022 Active Asthma ICD-10: J45.909 ICD-9: 493.90 08/08/2018 [...] sprain ICD-10: S93.409A ICD-9: 845.00 07/31/2022 Active Hypothyroid ICD-10: E03.9 ICD-9: 244.9 09/05/2018 [...] ICD-10: E78. 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 [facility] (current) use of non-steroidal anti-inflammatories (NSAID) [...] R51 ICD-9: 784.0 10/03/2018 Inactive Other long term care phlebotomist (current) dr edith therapy ICD-10: Z79.899 ICD-9: V58.69 04/25/2019 Inactive Type 2 diabetes mellitus wit hout complications ICD-10: E11.9 ICD-9: 250.00 10/03/2018 Inactive Wheezing ICD-10: R06.2 ICD-9: 786.07 08/08/2018 Inactive Abnormal urine finding ICD-10: R82.90 ICD-9: 791.9 09/24/2020 Resolved Abrasion of toe ICD-10: S90.416A ICD-9: 917.0 02/14/2020 Resolved [place] eye ICD-10: H10.029 ICD-9: 372.03 12/29/2019 Resolved [...] Instructions omeprazole 20 mg capsule,delayed release RxNorm: 102091 Take 1 Capsule(s) Oral every evening 022 2022 Inactive Alcohol Prep Pads RxNorm: 554534 USE EACH MORNING 022 2021 Inactive E11.42 clotrimazole 1 % topical cream RxNorm: 678648 Apply 1 Application Topical two times a day as needed apply to affected area(s) twice daily until healed 2021 Inactive Victoza 2-Sebastián 0.6 mg/0.1 mL (18 mg/3 mL) subcutaneous pen injector RxNorm: 970477 Inject 0.6-1.8 Milligram(s) Subcutaneous once a week Inject 0.6mg/0.1ml week one, 1.2mg/0.2ml week two, 1.8/0.3ml weekly thereafter 022 2021 Inactive ibuprofen 800 mg tablet RxNorm: 247096 Take 1 Tablet(s) Oral Q8H as needed for pain take with food No Stop Date Active Ozempic 1 mg/dose (4 mg/3 mL) subcutaneous pen injector RxNorm: 4327352 Take 1 Unit Dose Subcutaneous QWeek Tuesday2021 Inactive lisinopril 2.5 mg tablet RxNorm: 987064 Take 1 Tablet(s) Oral every day 2021 Inactive lisinopril 2.5 mg tablet RxNorm: 501776 Take 1 Tablet(s) Oral every day 022 2022 Inactive hydrochlorothiazide 25 mg tablet RxNorm: 403319 Take 1 Tablet(s) Oral every day 022 2021 Inactive Ozempic 1 mg/dose (4 mg/3 mL) subcutaneous pen injector RxNorm: 7873897 Take 1 Unit Dose Subcutaneous QWeek 2021 Inactive famotidine 20 mg tablet RxNorm: 845524 Take 1 Tablet(s) Oral every morning 2021 Inactive levothyroxine 50 mcg tablet RxNorm: 962375 Take 1 Tablet(s) Oral every day 2021 Inactive atorvastatin 20 mg tablet RxNorm: 079015 Take 1 Tablet(s) Oral every night at bedtime 2021 Inactive Cleocin T 1 % lotion RxNorm: 732201 Take 2 Gram(s) Topical every day 022 2021 Inactive Cleocin T 1 % lotion RxNorm: 902491 Take 2 Gram(s) Topical every day 07/202021 Inactive Ozempic 1 mg/dose (4 mg/3 mL) subcutaneous pen injector RxNorm: 9274975 Take 1 Unit Dose Subcutaneous QWeek 022 2021 Inactive Ozempic 0.25 mg or 0.5 mg (2 mg/1.5 mL) subcutaneous pen injector RxNorm: 7279854 INJECT 0.5 MGS SUBCUTANEOUSLY EVERY WEEK 2021 Inactive omeprazole 20 mg capsule,delayed release RxNorm: 934487 Take 1 Capsule(s) Oral every evening 2021 Inactive levothyroxine 50 mcg tablet RxNorm: 704710 Take 1 Tablet(s) Oral every day 2021 Inactive atorvastatin 20 mg tablet RxNorm: 066994 Take 1 Tablet(s) Oral every night at bedtime 2021 Inactive This refill negates all other refills of this medication lisinopril 2.5 mg tablet RxNorm: 321426 Take 1 Tablet(s) Oral every day 2021 Inactive gabapentin 300 mg capsule RxNorm: 315213 Take 1 Capsule(s) Oral three times a day 022 2021 Inactive montelukast 10 mg tablet RxNorm: 535853 Take 1 Tablet(s) Oral every day 2021 Inactive cholecalciferol (vitamin D3) 50 mcg (2,000 unit) tablet RxNorm: 620405 Take 1 Tablet(s) Oral every day 2022 Inactive Myrbetriq 50 mg tablet,extended release RxNorm: 5845787 1 Tablet(s) Oral every day No Stop Date Active Ozempic 0.25 mg or 0.5 mg (2 mg/1.5 mL) subcutaneous pen injector RxNorm: 0366344 inject 0.5 milligrams subcutaneously every week 022 2021 Inactive Ozempic 0.25 mg or 0.5 mg (2 mg/1.5 mL) subcutaneous pen injector RxNorm: 7501727 Take 0.5 Capsule(s) Injection once a week 022 2021 Inactive omeprazole 20 mg capsule,delayed release RxNorm: 193220 Take 1 Capsule(s) Oral every evening 2020 Inactive Ozempic 0.25 mg or 0.5 mg (2 mg/1.5 mL) subcutaneous pen injector RxNorm: 0245523 Take 0.25 Milligram(s) Subcutaneous once a week 2021 Inactive Easy Touch Alcohol Prep Pads RxNorm: 656387 USE DIRECTED EACH MORNING 2021 Inactive Probiotic 10 billion cell capsule RxNorm: 0210527 Take 1 Capsule(s) Oral every day 2021 Inactive levothyroxine 50 mcg tablet RxNorm: 896053 Take 1 Tablet(s) Oral every day 2020 Inactive Acid Store Stock Help (famotidine) 20 mg tablet RxNorm: 198591 Take 1 Tablet(s) Oral every morning 2020 Inactive Heartburn Relief (famotidine) 10 mg tablet RxNorm: 772116 Take 1 Tablet(s) Oral QAM 2020 Inactive levothyroxine 50 mcg tablet RxNorm: 899110 Take 1 Tablet(s) Oral QD 2020 Inactive Singulair 10 mg tablet RxNorm: 787087 TAKE (1) TABLET BY MOUTH DAILY 2020 Inactive metformin 1,000 mg tablet RxNorm: 129396 1 Tablet(s) Oral two times a day 2021 Inactive lisinopril 2.5 mg tablet RxNorm: 346388 Take 1 Tablet(s) Oral every day 021 2020 Inactive hydrochlorothiazide 25 mg tablet RxNorm: 573708 Take 1 Tablet(s) Oral every day 021 2020 Inactive ondansetron 4 mg disintegrating tablet RxNorm: 713226 1 Tablet(s) Oral two times a day 021 2020 Inactive Sudafed 12 Hour 120 mg tablet,extended release RxNorm: 1695536 TAKE 1 TABLET BY MOUTH EVERY 12 HOURS NEEDED 021 2021 Inactive Heartburn Relief (famotidine) 10 mg tablet RxNorm: 356098 Take 1 Tablet(s) Oral every morning 021 2020 Inactive omeprazole 20 mg capsule,delayed release RxNorm: 698484 1 Capsule(s) Oral every evening 021 2020 Inactive sertraline 100 mg tablet RxNorm: 880615 2 Tablet(s) Oral every day 021 2020 Inactive levothyroxine 50 mcg tablet RxNorm: 147663 TAKE (1) TABLET BY MOUTH DAILY 021 2020 Inactive metformin 500 mg tablet RxNorm: 206508 1 Tablet(s) Oral two times a day take with 500mg to equal 1000mg 021 2020 Inactive gabapentin 300 mg capsule RxNorm: 534175 TAKE 1 CAPSULE BY MOUTH THREE TIMES A DAY 021 2020 Inactive lisinopril 2.5 mg tablet RxNorm: 154919 TAKE 1 TABLET BY MOUTH DAILY 021 2020 Inactive gabapentin 300 mg capsule RxNorm: 065354 TAKE 1 CAPSULE BY MOUTH THREE TIMES A DAY 021 2020 Inactive Singulair 10 mg tablet RxNorm: 658949 TAKE (1) TABLET BY MOUTH DAILY 021 2020 Inactive metformin 1,000 mg tablet RxNorm: 716828 1 Tablet(s) Oral two times a day 021 2020 Inactive atorvastatin 40 mg tablet RxNorm: 467655 1 Tablet(s) Oral every day 021 2020 Inactive omeprazole 20 mg capsule,delayed release RxNorm: 587329 1 Capsule(s) Oral every evening 021 2020 Inactive famotidine 10 mg tablet RxNorm: 537010 1 Tablet(s) Oral every morning 021 2020 Inactive Alcohol Prep Pads RxNorm: 214745 USE EACH MORNING 021 2020 Inactive omeprazole 20 mg capsule,delayed release RxNorm: 754549 1 Capsule(s) Oral two times a day 021 2021 Inactive omeprazole 20 mg capsule,delayed release RxNorm: 419884 TAKE 1 CAPSULE BY MOUTH EVERY DAY 2021 Inactive Macrobid 100 mg capsule RxNorm: 197045 1 Capsule(s) Oral every 12 hours with food 2020 Inactive omeprazole 20 mg capsule,delayed release RxNorm: 333777 1 Capsule(s) Oral two times a day 2021 Inactive metformin 1,000 mg tablet RxNorm: 972277 1 Tablet(s) Oral two times a day 2020 Inactive start on September 11, 2020 metformin 500 mg tablet RxNorm: 971722 1 Tablet(s) Oral two times a day take with 500mg to equal 1000mg 2019 Inactive gabapentin 300 mg capsule RxNorm: 998960 TAKE 1 CAPSULE BY MOUTH THREE TIMES DAILY 2020 Inactive cetirizine 10 mg tablet RxNorm: 0585349 TAKE (1) TABLET BY MOUTH DAILY 2020 Inactive metformin 500 mg tablet RxNorm: 187170 1 Tablet(s) Oral two times a day 2019 Inactive loperamide 2 mg tablet RxNorm: 136074 1 Tablet(s) Oral as needed take one tablet after each loose stool, maximum of 8 tablets in 24 hours 2021 Inactive Sudafed 12 Hour 120 mg tablet,extended release RxNorm: 0811210 TAKE 1 TABLET BY MOUTH EVERY 12 HOURS NEEDED 2019 Inactive hydrochlorothiazide 25 mg tablet RxNorm: 637996 TAKE (1) TABLET BY MOUTH EVERY DAY 2019 Inactive omeprazole 20 mg capsule,delayed release RxNorm: 124903 TAKE 1 CAPSULE BY MOUTH EVERY DAY 020 2020 Inactive metformin 500 mg tablet RxNorm: 071898 1 Tablet(s) Oral every day 2019 Inactive True Metrix Glucose Test Strip RxNorm: 1 Test Strips Miscellaneous two times a day as needed No Stop Date Active metformin 500 mg tablet RxNorm: 105239 1 Tablet(s) Oral every day 2019 Inactive diclofenac sodium 75 mg tablet,delayed release RxNorm: 362900 1 Tablet(s) PO BID 2021 Inactive This refill negates all other refills of this medication Sudafed 12 Hour 120 mg tablet,extended release RxNorm: 0330284 TAKE 1 TABLET BY MOUTH EVERY 12 HOURS NEEDED 020 2019 Inactive True Metrix Glucose Test Strip RxNorm: 1 Test Strips Miscellaneous every morning 020 2019 Inactive 100/container True Metrix Glucose Test Strip RxNorm: 1 Test Strips Miscellaneous QAM 020 2019 Inactive 100/container loperamide 2 mg tablet RxNorm: 181393 1 Tablet(s) Oral as needed take one tablet after each loose stool, maximum of 8 tablets in 24 hours 020 2019 Inactive cetirizine 10 mg tablet RxNorm: 0748751 1 Tablet(s) PO daily 2019 Inactive loperamide 2 mg tablet RxNorm: 636486 1 Tablet(s) Oral as needed take one tablet after each loose stool, maximum of 8 tablets in 24 hours 020 2019 Inactive quetiapine 100 mg tablet RxNorm: 370504 1 Tablet(s) Oral every night at bedtime 2019 Inactive levothyroxine 50 mcg tablet RxNorm: 419661 1 Tablet(s) PO daily 020 2020 Inactive gabapentin 300 mg capsule RxNorm: 622338 1 Capsule(s) PO TID 2019 Inactive levothyroxine 50 mcg tablet RxNorm: 790794 1 Tablet(s) PO daily 2019 Inactive lisinopril 2.5 mg tablet RxNorm: 405876 1 Tablet(s) PO daily 2020 Inactive gabapentin 300 mg capsule RxNorm: 374724 1 Capsule(s) PO TID 2019 Inactive cetirizine 10 mg tablet RxNorm: 8919283 1 Tablet(s) PO daily 2019 Inactive Singulair 10 mg tablet RxNorm: 138646 1 Tablet(s) PO daily 2020 Inactive gentamicin 0.3 % eye drops RxNorm: 213838 1 Drop(s) ophthalmic (eye) four times a day 2019 Inactive gentamicin 0.3 % eye drops RxNorm: 851352 1 Drop(s) ophthalmic (eye) four times a day 2019 Inactive gentamicin 0.3 % eye drops RxNorm: 018320 1 Drop(s) ophthalmic (eye) four times a day 2019 Inactive hydrochlorothiazide 25 mg tablet RxNorm: 533173 1 Tablet(s) Oral every day 2019 Inactive Sudafed 12 Hour 120 mg tablet,extended release RxNorm: 4909932 TAKE (1) TABLET BY MOUTH EVERY 12 HOURS NEEDED 2019 Inactive loperamide 2 mg tablet RxNorm: 420059 1 Tablet(s) Oral as needed take one tablet after each loose stool, maximum of 8 tablets in 24 hours 2019 Inactive loperamide 2 mg tablet RxNorm: 974350 1 Tablet(s) Oral as needed take one tablet after each loose stool, maximum of 8 tablets in 24 hours 020 2019 Inactive atorvastatin 40 mg tablet RxNorm: 068754 1 Tablet(s) Oral every day 2020 Inactive quetiapine 100 mg tablet RxNorm: 959020 1 Tablet(s) Oral every night at bedtime 2019 Inactive sertraline 100 mg tablet RxNorm: 276038 1 Tablet(s) Oral 020 2019 Inactive omeprazole 20 mg capsule,delayed release RxNorm: 739933 1 Capsule(s) Oral every day 020 2019 Inactive amoxicillin 250 mg capsule RxNorm: 644198 1 Capsule(s) Oral three times a day 2019 Inactive multivitamin with iron-mineral tablet RxNorm: 1 Tablet(s) Oral every day 020 2021 Inactive cetirizine 10 mg tablet RxNorm: 0309738 1 Tablet(s) PO daily 2019 Inactive This refill negates all other refills of this medication. Please do not auto refill Singulair 10 mg tablet RxNorm: 733257 1 Tablet(s) PO daily 2019 Inactive This refill negates all other refills of this medication gabapentin 300 mg capsule RxNorm: 983937 1 Capsule(s) PO TID 2019 Inactive lisinopril 2.5 mg tablet RxNorm: 042762 1 Tablet(s) PO daily 2019 Inactive levothyroxine 50 mcg tablet RxNorm: 095602 1 Tablet(s) PO daily 2019 Inactive This refill negates all other refills of this medication hydrochlorothiazide 25 mg tablet RxNorm: 878536 1 Tablet(s) Oral every day 2019 Inactive fenugreek seed extract 500 mg capsule RxNorm: 1 Capsule(s) Oral three times a day 2021 Inactive Alcohol Prep Pads RxNorm: 928563 1 Patch TOP QAM 020 2020 Inactive loperamide 2 mg tablet RxNorm: 194207 1 Tablet(s) Oral as needed take one [...] 2019 Inactive hydrochlorothiazide 25 mg tablet RxNorm: 314144 1 Tablet(s) Oral every day 2019 Inactive Sudafed 12 Hour 120 mg tablet,extended release RxNorm: 5434272 1 Tablet(s) Oral every 12 hours as needed 2018 Inactive omeprazole 20 mg capsule,delayed release RxNorm: 224367 1 Capsule(s) Oral every day 2019 Inactive Sudafed 12 Hour 120 mg tablet,extended release RxNorm: 1615604 1 Tablet(s) Oral every 12 hours as needed 2018 Inactive pantoprazole 40 mg tablet,delayed release RxNorm: 194993 1 Tablet(s) Oral every day 2018 Inactive discontinue any other H2Blkr. and PPI albuterol sulfate 2.5 mg/3 mL (0.083 %) solution for nebulization RxNorm: 265258 1 Vial Inhalation every four hours as needed as needed for dyspnea 2019 Inactive 60/box. This refill negates all other refills of this medication. Please do not fill early. Please do not auto refill. Symbicort 160 mcg-4.5 mcg/actuation HFA aerosol inhaler RxNorm: 0824463 2 Puff(s) INH BID No Stop Date Active Alcohol Prep Pads RxNorm: 261038 1 Patch TOP QAM 2019 Inactive Ventolin HFA 90 mcg/actuation aerosol inhaler RxNorm: 311887 2 Puff(s) INH QID 019 2019 Inactive Please do not fill early. Please do not auto refill. This refill negates all other refills of this medication True Metrix Glucose Test Strip RxNorm: 1 Test Strips Miscellaneous QAM 019 2019 Inactive 100/container atorvastatin 40 mg tablet RxNorm: 857766 1 Tablet(s) Oral every day 019 2019 Inactive buspirone 7.5 mg tablet RxNorm: 651699 1 Tablet(s) PO BID 019 2020 Inactive This refill negates all other refills of this medication hydrochlorothiazide 12.5 mg tablet RxNorm: 542883 1 Tablet(s) PO QAM 019 2019 Inactive levmetamfetamine 50 mg nasal inhaler RxNorm: 1 Unit(s) NASAL Q3-4H Do not use more than every 3 hours or 8 times/24hours 019 2021 Inactive Please do not auto refill. This refill negates all other refills of this medication Ventolin HFA 90 mcg/actuation aerosol inhaler RxNorm: 848690 2 Puff(s) INH QID 019 2018 Inactive Please do not fill early. Please do not auto refill. This refill negates all other refills of this medication Singulair 10 mg tablet RxNorm: 302130 1 Tablet(s) PO daily 019 2019 Inactive This refill negates all other refills of this medication cetirizine 10 mg tablet RxNorm: 3404367 1 Tablet(s) PO daily 019 2019 Inactive This refill negates all other refills of this medication. Please do not auto refill levothyroxine 50 mcg tablet RxNorm: 756989 1 Tablet(s) PO daily 019 2019 Inactive This refill negates all other refills of this medication diclofenac sodium 75 mg tablet,delayed release RxNorm: 776262 1 Tablet(s) PO BID 019 2019 Inactive This refill negates all other refills of this medication ranitidine 150 mg tablet RxNorm: 778628 1 Tablet(s) PO BID 019 2018 Inactive This refill negates all other refills of this medication Calcium 600-D3 Plus (mag-zinc) 600 mg calcium-800 unit-50 mg tablet RxNorm: 1 Tablet(s) PO daily take an additonal tablet for itching. 2018 Inactive This refill negates all other refills of this medication albuterol sulfate 2.5 mg/3 mL (0.083 %) solution for nebulization RxNorm: 027211 1 Vial INH QID 2018 Inactive 60/box. This refill negates all other refills of this medication. Please do not fill early. Please do not auto refill. lisinopril 2.5 mg tablet RxNorm: 938216 1 Tablet(s) PO daily 019 2019 Inactive gabapentin 300 mg capsule RxNorm: 089355 1 Capsule(s) PO TID 019 2019 Inactive atorvastatin 20 mg tablet RxNorm: 005285 1 Tablet(s) PO QHS 2018 Inactive This refill negates all other refills of this medication TRUEplus Lancets 30 gauge RxNorm: 1 Lancets Miscellaneous QAM 019 2018 Inactive 100/box gabapentin 300 mg capsule RxNorm: 560186 1 Capsule(s) PO TID 019 2018 Inactive Flintstones Complete (iron) 18 mg iron chewable tablet RxNorm: 1 Tablet(s) PO daily 019 2021 Inactive This refill negates all other refills of this medication gabapentin 300 mg capsule RxNorm: 112670 1 Capsule(s) PO TID as needed 019 2018 Inactive True Metrix Glucose Test Strip RxNorm: 1 Test Strips Miscellaneous QAM 019 2018 Inactive 100/container Alcohol Prep Pads RxNorm: 834504 1 Patch TOP QAM 019 2018 Inactive TRUEplus Lancets 30 gauge RxNorm: 1 Lancets Miscellaneous QAM 019 2018 Inactive 100/box lisinopril 2.5 mg tablet RxNorm: 641044 1 Tablet(s) PO daily 019 2018 Inactive ranitidine 150 mg tablet RxNorm: 266677 1 Tablet(s) PO BID 019 2018 Inactive This refill negates all other refills of this medication albuterol sulfate 2.5 mg/3 mL (0.083 %) solution for nebulization RxNorm: 799268 1 Vial INH QID 019 2018 Inactive [...] this medication gabapentin 300 mg capsule RxNorm: 055248 1 Capsule(s) PO TID as needed 019 2018 Inactive atorvastatin 20 mg tablet RxNorm: 293626 1 Tablet(s) PO QHS 019 2018 Inactive This refill negates all other refills of this medication trazodone 50 mg tablet RxNorm: 880724 1 Tablet(s) PO QHS 019 2018 Inactive This refill negates all other refills of this medication Ventolin HFA 90 mcg/actuation aerosol inhaler RxNorm: 882193 2 Puff(s) INH QID 019 2018 Inactive Please do not fill early. Please do not auto refill. This refill negates all other refills of this medication Calcium 600-D3 Plus 600 mg calcium-800 unit-50 mg tablet RxNorm: 1 Tablet(s) PO daily take an additonal tablet for itching. 2018 Inactive This refill negates all other refills of this medication Singulair 10 mg tablet RxNorm: 424622 1 Tablet(s) PO daily 019 2018 Inactive This refill negates all other refills of this medication buspirone 7.5 mg tablet RxNorm: 369938 1 Tablet(s) PO BID 019 2018 Inactive This refill negates all other refills of this medication diclofenac sodium 75 mg tablet,delayed release RxNorm: 618907 1 Tablet(s) PO BID 019 2018 Inactive This refill negates all other refills of this medication hydrochlorothiazide 12.5 mg tablet RxNorm: 776073 1 Tablet(s) PO QAM 019 2018 Inactive metoprolol succinate ER 50 mg tablet,extended release 24 hr RxNorm: 966371 1 Tablet(s) PO daily 019 2018 Inactive This refill negates all other refills of this medication levothyroxine 50 mcg tablet RxNorm: 408967 1 Tablet(s) PO daily 019 2018 Inactive This refill negates all other refills of this medication cetirizine 10 mg tablet RxNorm: 5673126 1 Tablet(s) PO daily 019 2018 Inactive This refill negates all other refills of this medication. Please do not auto refill Flintstones Complete (iron) 18 mg iron chewable tablet RxNorm: 1 Tablet(s) PO daily 019 2018 Inactive This refill negates all other refills of this medication buspirone 7.5 mg tablet RxNorm: 316575 1 Tablet(s) PO BID 019 2018 Inactive cetirizine 10 mg tablet RxNorm: 1296577 1 Tablet(s) PO daily 2018 Inactive Guaiasorb DM 10 mg-100 mg/5 mL oral liquid RxNorm: 826154 10 Milliliter(s) PO As needed every 4 hr 122018 Inactive Vicks Vaporub 4.7 %-1.2 %-2.6 % topical ointment RxNorm: 5764184 1 Application TOP TID 2018 Inactive levmetamfetamine 50 mg nasal inhaler RxNorm: 1 Unit(s) NASAL Q3-4H 2017 Inactive sertraline 50 mg tablet RxNorm: 702936 1 Tablet(s) PO daily 2018 Inactive Please note dose trazodone 50 mg tablet RxNorm: 628887 1 Tablet(s) PO QHS 2018 Inactive sertraline 50 mg tablet RxNorm: 536929 1 Tablet(s) PO daily 018 2017 Inactive amoxicillin 500 mg tablet RxNorm: 493574 1 Tablet(s) PO Q12H 2017 Inactive albuterol sulfate 2.5 mg/3 mL (0.083 %) solution for nebulization RxNorm: 719059 1 Vial INH QID 2018 Inactive 60/box. Please do not fill early. Please do not auto refill. Prozac 10 mg capsule RxNorm: 532170 1 Capsule(s) PO daily 018 2017 Inactive buspirone 7.5 mg tablet RxNorm: 487623 1 Tablet(s) PO BID 2018 Inactive gabapentin 300 mg capsule RxNorm: 203229 1 Capsule(s) PO TID as needed 2018 Inactive hydrochlorothiazide 12.5 mg tablet RxNorm: 847100 1 Tablet(s) PO QAM 2018 Inactive ranitidine 150 mg tablet RxNorm: 980606 1 Tablet(s) PO BID 2018 Inactive Macrobid 100 mg capsule RxNorm: 285161 1 Capsule(s) PO Q12H 018 2017 Inactive Singulair 10 mg tablet RxNorm: 181542 1 Tablet(s) PO daily 018 2018 Inactive Ventolin HFA 90 mcg/actuation aerosol inhaler RxNorm: 3590114 2 Puff(s) INH QID 018 2018 Inactive Singulair 10 mg tablet RxNorm: 652344 1 Tablet(s) PO daily 018 2017 Inactive buspirone 7.5 mg tablet RxNorm: 436335 1 Tablet(s) PO BID 018 2017 Inactive Prozac 10 mg capsule RxNorm: 715792 1 Capsule(s) PO daily 018 2017 Inactive diclofenac sodium 75 mg tablet,delayed release RxNorm: 606994 1 Tablet(s) PO BID 018 2017 Inactive lisinopril 2.5 mg tablet RxNorm: 720971 1 Tablet(s) PO daily 018 2017 Inactive Neilmed Pediatric Sinus Rinse Refill packet RxNorm: 1 Unit Dose NASAL PRN 018 2021 Inactive metoprolol succinate ER 50 mg tablet,extended release 24 hr RxNorm: 765605 1 Tablet(s) PO daily 018 2017 Inactive levothyroxine 50 mcg tablet RxNorm: 778635 1 Tablet(s) PO daily 018 2017 Inactive TRUEplus Lancets 30 gauge RxNorm: 1 Lancets Miscellaneous QAM 018 2017 Inactive 100/box Ventolin HFA 90 mcg/actuation aerosol inhaler RxNorm: 278541 2 Puff(s) INH QID 018 2017 Inactive Aleve 220 mg capsule RxNorm: 6040055 1 Capsule(s) PO BID 018 2018 Inactive ranitidine 150 mg tablet RxNorm: 720342 1 Tablet(s) PO BID 018 2017 Inactive gabapentin 300 mg capsule RxNorm: 384667 1 Capsule(s) PO TID as needed 018 2017 Inactive atorvastatin 20 mg tablet RxNorm: 074484 1 Tablet(s) PO QHS 018 2017 Inactive True Metrix Glucose Test Strip RxNorm: 1 Test Strips Miscellaneous QAM 018 2017 Inactive 50/container Calcium 600-D3 Plus 600 mg calcium-800 unit-50 mg tablet RxNorm: 1 Tablet(s) PO daily take an additonal tablet for itching. 018 2017 Inactive hydrochlorothiazide 12.5 mg tablet RxNorm: 080817 1 Tablet(s) PO QAM 018 2017 Inactive Flintstones Complete (iron) 18 mg iron chewable tablet RxNorm: 1 Tablet(s) PO daily 018 2017 Inactive True Metrix Glucose Meter RxNorm: miscellaneous 019 2018 Inactive sertraline 50 mg tablet RxNorm: 447424 1 Tablet(s) PO daily 020 2019 Inactive loperamide 2 mg tablet RxNorm: 479837 oral 019 2018 Inactive d-mannose oral powder RxNorm: PO 018 2021 Inactive Symbicort 160 mcg-4.5 mcg/actuation HFA aerosol inhaler RxNorm: 3707795 2 Puff(s) INH BID 019 2018 Inactive Medication Administered No Medication Administered data Results Observation Observation Code Item Item Code Result Date Service Location CHEM 14 (METABOLIC PANEL) 12354 Glucose 2345-7 88 mg/dL 10/21/19 [facility] [address] [place] [address] CHEM 14 (METABOLIC PANEL) 00052 BUN 3094-0 19 mg/dL 10/21/19 [facility] [address] [place] [address] CHEM 14 (METABOLIC PANEL) 23657 Creatinine 2160-0 0.9 mg/dL 10/21/19 [facility] [address] [place] [address] CHEM 14 (METABOLIC PANEL) 80280 BUN/Creat Ratio 3097-3 20.6 10/21/19 [facility] [address] [place] [address] CHEM 14 (METABOLIC PANEL) 49379 GFR Estimated 49748-2 82 mL/min/1.7 3m2 10/21/19 [facility] [address] [place] [address] CHEM 14 (METABOLIC PANEL) 16044 Sodium 2951-2 141 mmol/L 10/21/19 [facility] [address] [place] [address] CHEM 14 (METABOLIC PANEL) 92661 Potassium 2823-3 3.9 mmol/L 10/21/19 [facility] [address] [place] [address] CHEM 14 (METABOLIC PANEL) 89172 Chloride 2075-0 107 mmol/L 10/21/19 [facility] [address] [place] [address] CHEM 14 (METABOLIC PANEL) 84780 Total CO2 2028-9 26 mmol/L 10/21/19 [facility] [address] [place] [address] CHEM 14 (METABOLIC PANEL) 17002 Anion Gap 1863-0 11.9 mEq/L 10/21/19 [facility] [address] [place] [address] CHEM 14 (METABOLIC PANEL) 93041 Calculated Serum Osmolality 16053-3 294 mOsm/kg 10/21/19 [facility] [address] [place] [address] CHEM 14 (METABOLIC PANEL) 28314 Albumin 45006-9 3.7 g/dL 10/21/19 [facility] [address] [place] [address] CHEM 14 (METABOLIC PANEL) 60904 Total Protein 2885-2 7.2 g/dL 10/21/19 [facility] [address] [place] [address] CHEM 14 (METABOLIC PANEL) 35796 Globulin 2336-6 3.5 g/dL 10/21/19 [facility] [address] [place] [address] CHEM 14 (METABOLIC PANEL) 41917 Albumin/Globuli n Ratio 1759-0 1.1 10/21/19 [facility] [address] [place] [address] CHEM 14 (METABOLIC PANEL) 12682 ALK PHOS 6768-6 89.00 U/L 10/21/19 [facility] [address] [place] [address] CHEM 14 (METABOLIC PANEL) 59257 SGOT/AST 1920-8 14 U/L 10/21/19 [facility] [address] [place] [address] CHEM 14 (METABOLIC PANEL) 58370 SGPT/ALT 1743-4 23 U/L 10/21/19 [facility] [address] [place] [address] CHEM 14 (METABOLIC PANEL) 66315 Total Bilirubin 1975-2 0.4 mg/dL 10/21/19 [facility] [address] [place] [address] CHEM 14 (METABOLIC PANEL) 82447 Calcium 15690-4 9.4 mg/dL 10/21/19 [facility] [address] [place] [address] CHEM 14 (METABOLIC PANEL) 85304 Corrected Calcium 87819-9 9.8 mg/dL 10/21/19 [facility] [address] [place] [address] [id number]-KFYXIRJNSRH OBIN 4548-4 Glyco HGB A1C 19950-2 5.6 % 10/21/19 [facility] [address] [place] [address] N3G-MUBDOKEXAHA OBIN 4548-4 eAG 23289-9 114 mg/dL 10/21/19 [facility] [address] [place] [address] COMPLETE CBC W/ DIFF WBC 12735 WBC 6690-2 12.4 K/ul 10/21/19 [facility] [address] [place] [address] COMPLETE CBC W/ DIFF WBC 63792 RBC 789-8 4.78 M/uL 10/21/19 [facility] [address] [place] [address] COMPLETE CBC W/ DIFF WBC 09860 Hemoglobin 718-7 12.0 g/dL 10/21/19 [facility] [address] [place] [address] COMPLETE CBC W/ DIFF WBC 72170 Hematocrit 4544-3 38.3 % 10/21/19 [facility] [address] [place] [address] COMPLETE CBC W/ DIFF WBC 86986 MCV 787-2 80.1 fL 10/21/19 [facility] [address] [place] [address] COMPLETE CBC W/ DIFF WBC 85002 MCH 785-6 25.1 pg 10/21/19 [facility] [address] [place] [address] COMPLETE CBC W/ DIFF WBC 98392 MCHC 786-4 31.4 g/dL 10/21/19 [facility] [address] [place] [address] COMPLETE CBC W/ DIFF WBC 17331 RDW 788-0 14.3 % 10/21/19 [facility] [address] [place] [address] COMPLETE CBC W/ DIFF WBC 03006 Platelet Count 777-3 397 K/uL 10/21/19 [facility] [address] [place] [address] COMPLETE CBC W/ DIFF WBC 04933 MPV 64835-9 9.0 fL 10/21/19 [facility] [address] [place] [address] COMPLETE CBC W/ DIFF WBC 82022 Neutrophils % 770-8 74.4 % 10/21/19 [facility] [address] [place] [address] COMPLETE CBC W/ DIFF WBC 44462 Lymphocytes % 736-9 18.3 % 10/21/19 [facility] [address] [place] [address] COMPLETE CBC W/ DIFF WBC 80580 Monocytes % 5905-5 6.3 % 10/21/19 [facility] [address] [place] [address] COMPLETE CBC W/ DIFF WBC 38216 Eosinophils % 713-8 0.7 % 10/21/19 [facility] [address] [place] [address] COMPLETE CBC W/ DIFF WBC 80239 Basophils% 706-2 0.3 % 10/21/19 [facility] [address] [place] [address] COMPLETE CBC W/ DIFF WBC 05625 Absolute Neutrophil 751-8 9226 /ul 10/21/19 [facility] [address] [place] [address] COMPLETE CBC W/ DIFF WBC 68060 Absolute Lymphocyte 50706-4 2269 /ul 10/21/19 [facility] [address] [place] [address] COMPLETE CBC W/ DIFF WBC 20523 Absolute Monocyte 742-7 781 /ul 10/21/19 [facility] [address] [place] [address] COMPLETE CBC W/ DIFF WBC 65170 Absolute Eosinophil 711-2 87 /ul 10/21/19 [facility] [address] [place] [address] COMPLETE CBC W/ DIFF WBC 42935 Absolute Basophil 704-7 37 /ul 10/21/19 [facility] [address] [place] [address]473 VITAMIN B-12 42821 Vitamin B12 2132-9 238 pg/mL 10/21 [facility] [address] [place] [address],[place] [address] Procedures Procedure Codes Date Pain Screening CPT-4: PAS 2022 Tobacco Assessment/Screening CPT-4: TCA Tobacco Assessment/Screening Tobacco Use/Never used tobacco CPT-4: TCAUnknown 2022 Pain Screening Do you suffer from any painful conditions?/Yes (plan required)/Pain currently adequately controlled CPT-4: PASUnknown 023 Glucose Blood Test CPT-4: 23696 2022 Hypertension CPT-4: HTN 08/17/2022 Battiest Fany Assessment CPT-4: DSWA 04/02 Patient Health [...] CPT-4: VACP Fall Risk Assessment SNOMED CT: 11610278 4 CPT-4: DFRA 01/13/2021 Battiest Fany Assessment CPT-4: DSWA 12/01 Urinalysis, dip stick CPT-4: 03928 09/24/2020 Patient Health Questionnaire CPT-4: DPHQ Electrocardiogram CPT-4: 18164 05/14/2020 Tobacco Assessment/Screening CPT-4: TCA Fall Risk Assessment SNOMED CT: 67804728 4 CPT-4: DFRA 01/01/2020 Functional Assessment CPT-4: DFA 01/01/2020 Battiest Fany Assessment CPT-4: DSWA 11/04 Patient Health Questionnaire CPT-4: DPHQ Battiest Fany Assessment CPT-4: DSWA 10/03 Hypertension CPT-4: HTN 10/17/2019 Fall Risk Assessment SNOMED CT: 89816402 4 CPT-4: DFRA 09/19/2019 Functional Assessment CPT-4: DFA 09/19/2019 Urinalysis, dip stick CPT-4: 51112 06/21/2019 Tobacco Assessment/Screening CPT-4: TCA Patient Health Questionnaire CPT-4: DPHQ AHA/REBECCA Classification Assessment CPT-4: DAHA 04/25/2019 Controlled Substance Report CPT-4: CTRSU 04/03 Urinalysis, dip stick CPT-4: 33934 03/28/2019 Urinalysis, dip stick CPT-4: 05734 03/28/2019 X5T-Vpriebsotdlyjhw CPT-4: 65028 Unknown H5I-Yhdvjxskhlcxrqw CPT-4: 38635 Unknown S5B-Ghqrjmroesvnobn CPT-4: 05481 Unknown I6H-Jdyjdkwnlpejusl CPT-4: 51658 Unknown V5V-Nqlpuhlroxwwmih CPT-4: 39241 Unknown Z1A-Gqvewbusvtmdjws CPT-4: 06151 Unknown Z6S-Onrwsguvypkgrmx CPT-4: 84123 Unknown O9C-Xuxlrgrfcjjayqr CPT-4: 34856 Unknown A1Z-Owsjgbxelygjqpm CPT-4: 35202 Unknown P7W-Srlukmqrsznyejk CPT-4: 47742 Unknown A1Q-Uyibmhhunmnycrz CPT-4: 79084 Unknown Gynecology Referral SNOMED CT: 652744537 CPT-4: R14 Unknown Vital Signs Date Vital 2022 Blood Pressure 1: 104/78 Code: 8480-6 BMI: 54.4 Code: 64247-0 Heart Rate 1: 90 bpm Height: 4'11 Code: 8302-2 Random Blood Sugar: 117/NaN Respiratory Rate: 18 bpm SpO2: 98% Temperature: 36.3 (C) / 97.3 (F) Weight: 269 lbs 9 oz Code: 89146-2 Reason For Visit Reason For Visit Effective Dates Notes diabetes mellitus 2022 hypertension 2022 depression 2022 dermatologic complaint 2022 Interim health update 2022 Encounters Encounter Performer Location Location Address Codes Mag[place] e ([id number]) Home or Residence Visit Est Pt - Moderate Level, 40 mins Diagnosis: Type 2 diabetes mellitus with peripheral neuropathy[ICD10: E11.42] Diagnosis: Hypertensive heart disease[ICD10: I11.9] Diagnosis: Major depression, recurrent[ICD10: F33.9] Diagnosis: Open wound of right middle finger[ICD10: S61.A] Diagnosis: Adult BMI 50.0-59.9 kg/sq m[ICD10: Z68.43] Diagnosis: Encounter for screening for tobacco use[ICD10: Z01.89] Anna Culver [place] [facility] [address] [place] [address] [place] [address] CPT-4: 30998 2022 Plan of Care Planned Activity Notes Codes Status Date Visit Plan: Visit time spent inv olved in medical discussion with patient, including obtaining history from patient, systems review, diagnostic and laboratory test review with patient. Assessment findings and plan reviewed with patient, including time to provide counseling, and education to patient I10 Essential (primary) hypertension, I11.9-402.90 Hypertensive heart disease BP stable, no edema, will continue lisinopril, HCTZ 07/02/20 Echo: EF 60%, mild conc. LVH 05/14/20 EKG: NSR 05/14/20 Nnoct. Pulse Ox.: 7 min. < 89% SpO2 continue with [employer] Josh Simon MD will check labs this visit G47.33 Obstructive sleep apnea (adult), J45.909 Asthma breathing stable, continue utilization of Symbicort, albuterol via neb. or MDI q 4 hrs. prn dyspnea, CPAP use continues nightly continue with [facility] BOWMAN last visit 05/31/2022 E11.42 Type 2 diabetes mellitus with peripheral neuropathy, Z68.43 Adult BMI 50.0-59.9 kg/sq m stable glucose monitor - testing bid FBS 115, trying to get closer to 100 continue Ozempic 1mg per week and gabapentin 06/23/2022 Hgb A1C 5.8, GFR 94 continue with Kerrie Pandya OD at [facility] (06/30/21) note 3 pound weight gain, admits to eating more over the holidays, continues to be active and motivated to lose weight, encouraged to limit carbs will check labs this visit F33.9-296.30 Major depression, recurrent continue taking sertraline, buspirone Seroquel complete and has been replaced with Rexulti continue with [facility] in [place] will check labs this visit S61.202A-883.0 Open wound of right middle finger 2022 Pain screen complete, new onset of pain to right middle finger trauma from pulling off loose skin advise to soak in Epsom Salts with warm water twice daily, pat dry, apply neosporin Advise to call office for persistent or worsening symptoms Below historical items not addressed this visit: E78.2 Hyperlipidemia, mixed atorvastatin was d/c'd due to elevated LFTs- however based on further info, pt had been taking a diet supplement known in increase liver enzymes 11/02/21 LDL 181, triglyc. 193 patient has re-started atorvastatin per prior visit recommendations continue Mediterranean style eating E03.9 Hypothyroidism 06/23/2022 TSH 2.130, continue levothyroxine E55.9 Vitamin D deficiency begin cholecalciferol 11/02/21 [...] diclogenac top gel 1% qid prn arthralgia/myalgia 2022 Patient Education: Hypertension Completed 2022 Patient Education: Patient Medication Summary Completed 2022 Patient Education: Diabetes Complete d 2022 Patient Education: Depression Completed 2022 Patient Education: Obesity Completed 2022 Appointment: Anna Culver WPtel: [address] [place] [address] E410 08/17/2022 Appointment: Anna Culver WPtel: [address] [place] [address] E410 06/23/2022 Appointment: Chivo Bishop WPtel: [address] [place] [address] E410 04/19/2022 Appointment: Chivo Bishop WPtel: [address] [place] [address] E410 02/11/2022 Appointment: Mikey Nair WPtel: [facility] [id number] E410 12/03/2021 Appointment: Chivo Bishop WPtel: [address] [place] [address] E410 11/02/2021 Appointment: Chivo Bishop WPtel: [address] [place] [address] E410 10/07/2021 Appointment: Chivo Bishop WPtel: [address] [place] [address] ETV 09/10/2021 Appointment: Chivo Bishop WPtel: [address] [place] [address] ETV 08/13/2021 Appointment: Chivo Bishop WPtel: [address] [place] [address] ETV 07/06/2021 Appointment: Chivo Bishop WPtel: [address] [place] [address] PHTV 06/10/2021 Appointment: Anna Culver WPtel: [address] [place] [address] ETV 06/02/2021 Appointment: Chivo Bishop WPtel: [address] [place] [address] ETV 05/20/2021 Appointment: Anna Culver WPtel: [address] [place] [address] ETV 04/28/2021 Appointment: Chivo Bishop WPtel: [address] [place] [address] ETV 04/15/2021 Appointment: Anna Culver WPtel: [address] [place] [address] E410 04/01/2021 Appointment: Anna Culver WPtel: [address] [place] [address] ETV 03/24/2021 Appointment: Anna Culver WPtel: [address] [place] [address] ETV 03/13/2021 Appointment: Anna Culver WPtel: [address] [place] [address] E410 02/11/2021 Appointment: Chivo Bishop WPtel: [address] [place] [address] [place] E410 01/29/2021 Appointment: Anna Culver WPtel: [address] [place] [address] [place] ETV 01/13/2021 Appointment: Anna Culver WPtel: [address] [place] [address] E410 12/17/2020 Appointment: Chivo Bishop WPtel: [address] [place] [address] ETV 11/28/2020 Appointment: Anna Culver WPtel: [id number] [place] [address] [place] ETV 11/24/2020 Appointment: Anna Culver WPtel: [phone] [place] [address] [place] E410 10/29/2020 Appointment: Anna Culver WPtel: [address] [place] [address] [place] E410 09/24/2020 Appointment: Anna Culver WPtel: [address] [place] [address] [place] ETV 08/26/2020 Appointment: Anna Culver WPtel: [address] [place] [address] [place] ETV 08/19/2020 Appointment: Anna Culver WPtel: [address] [place] [address] [place] ETV 07/22/2020 Appointment: Anna Culver WPtel: [address] [place] [address] [place] ETV 07/08/2020 Appointment: Gianna Birmingham: [facility] 100 [id number] [place] ECHO 07/02/2020 Appointment: Anna Culver WPtel: [address] [place] [address] [place] E452 06/11/2020 Appointment: Anna Culver WPtel: [address] [place] [address] [place] E452 05/14/2020 Appointment: Anna Culver WPtel: [address] [place] [address] [place] E452 04/17/2020 Appointment: Anna Culver WPtel: [address] [place] [address] [place] E452 03/21/2020 Appointment: Anna Culver WPtel: [phone] E452 02/14/2020 Appointment: Anna Culver WPtel: [id number] [place] [address] E452 01/24/2020 Appointment: Anna Culver WPtel: [address] [place] [address] E452 01/01/2020 Appointment: Anna Culver WPtel: [address] [place] [address] E452 11/28/2019 Appointment: Anna Culver WPtel: [address] [place] [address] E452 10/17/2019 Appointment: Anna Culver WPtel: [address] [place] [address] E452 09/19/2019 Appointment: Sudha Hernadez WPtel: [address] [facility] [address] [id number] E452 07/04/2019 Appointment: Sudha Hernadez WPtel: [address] [facility] [address] [id number] E452 06/21/2019 Appointment: Charlene Oropeza WPtel: [address] [facility] [address] [id number] E452 05/24/2019 Appointment: Mallory Delgado E452 04/27/2019 Appointment: Charlene Oropeza WPtel: [address] [facility] [address] [id number] E452 04/25/2019 Appointment: Rasta Palafox WPtel: [address] [facility] [address] [id number] E452 03/28/2019 Appointment: Rasta Palafox WPtel: [address] [facility] [address] [id number] E452 02/14/2019 Appointment: Rasta Palafox WPtel: [address] [facility] [address] [id number] E452 01/31/2019 Appointment: Rasta Palafox WPtel: [address] [facility] [address] [id number] E420 12/27/2018 Referral: Pending Gynecology Referral Information Referral Processed Referral: Pending Pulmonology Referral Information Referral Processed Referral: Pending Psychiatry Referral Information Referral Initiated Referral: Pending Respiratory Services Referral Information Referral Initiated Referral: Pending Ophthalmology Referral Information Referral Initiated Referral: [facility] WPtel: [address] [place] [address] Epic Interface Analyst placed a call out to the patient to notify her that it has been recommended that she be seen by a urologist. Patient agreed to be seen, does not have a provider of choice and no transportation issues. Epic Interface Analyst faxed referral and clinical notes to [facility] in [place], [place] near the patient's home. Patient to [...] seen and prefers a provider in the [place] or [facility]. Epic Interface Analyst placed a call out to everyone listed in the area and the only location that was able to accept the patient's insurance was [place] [address] [place] [address] and spoke with Maylin. Maylin asked that the patient's referral, face sheet and visit notes be faxed to . Epic Interface Analyst faxed over requested documents. Patient appointment confirmation letter generated and mailed to her home address. Patient to call to schedule an appointment. Processed Referral: [facility] WPtel: [address] [place] [address] Patient notified that it has been advised that she be seen by Neurology. Patient agreed to be seen and prefers to be seen by a provider in the [place], [place] area. Patient denies any concerns with transportation, and prefers to schedule her own appointment. Epic Interface Analyst placed a call out to [facility] and spoke with Neeraj P: who confirmed that their office is able to accept new patients and the patient's insurance. After confirming the providers fax number, publicity writer faxed over the patient's referral, and [...] Patient aware and agreeable with plan . Visit time spent involved in medical discussion with patient, including obtaining history from patient, systems review, diagnostic and laboratory test review with patient. Assessment findings and plan reviewed with patient, including time to provide counseling, and education to patient I10 Essential (primary) hypertension, I11.9-402.90 Hypertensive heart disease BP stable, no edema, will continue lisinopril, HCTZ; 07/02/20 Echo: EF 60%, mild conc. LVH; 05/14/20 EKG: NSR; 05/14/20 Nnoct. Pulse Ox.: 7 min. < 89% SpO2; continue with [facility] [employer] Josh Simon MD; will check labs this visit G47.33 Obstructive sleep apnea (adult), J45.909 Asthma breathing stable, continue utilization of Symbicort, albuterol via neb. or MDI q 4 hrs. prn dyspnea, CPAP use continues nightly continue with [facility] BOWMAN; last visit 05/31/2022 E11.42 Type 2 diabetes mellitus with peripheral neuropathy, Z68.43 Adult BMI 50.0-59.9 kg/sq m stable glucose monitor - testing bid; FBS 115, trying to get closer to 100 continue Ozempic 1mg per week and gabapentin; 9// Hgb A1C 5.8, GFR 94; continue with Kerrie Pandya OD at [facility] (06/30/21); note 3 pound weight gain, admits to eating more over the holidays, continues to be active and motivated to lose weight, encouraged to limit carbs will check labs this visit F33.9-296.30 Major depression, recurrent continue taking sertraline, buspirone; Seroquel complete and has been replaced with Rexulti continue with [facility] in [place]; will check labs this visit S61.202A-883.0 Open wound of right middle finger 2022 Pain screen complete, new onset of pain to right middle finger; trauma from pulling off loose skin advise to soak in Epsom Salts with warm water twice daily, pat dry, apply neosporin Advise to call office for persistent or worsening symptoms ---- Below historical items not addressed this visit: E78.2 Hyperlipidemia, mixed atorvastatin was d/c'd due to elevated LFTs- however based on further info, pt had been taking a diet supplement known in increase liver enzymes 11/02/21 LDL 181, triglyc. 193 patient has re-started atorvastatin per prior visit recommendations continue Mediterranean style eating; E03.9 Hypothyroidism 06/23/2022 TSH 2.130, continue levothyroxine; E55.9 Vitamin D deficiency begin cholecalciferol; 11/02/21 [...] surgery Myrbetriq qd; use of incontinence supplies; 4/5/21 urinary stimulator implant - symptoms improved, urinating ~ 5 times per day; continue with Urologist; Z00.00-V70.9 (Z00.00-V70.9) Encounter for general adult medical examination without abnormal findings 02/11/22 AWV complete diclogenac top gel 1% qid prn arthralgia/myalgia; 2022 Medical Equipment No Medical Equipment data Advance Directives No Advance Directive data
--- OUTSIDE RECORDS SUMMARY | 2023-12-07 02:22 | XMS_ITS | CCD ---
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 Car Bracer Name Role Phone Palomo KING, Anna Primary Care Provider Unav ailable Unavailable Chronic Care Management Unavaila ble Summary Purpose DataExchange Insurance Providers Payer name Policy type / Coverage type Covered democrat ID Effective Begin Date Effective End Date SUKI MAYO 1934 Unknown Unknown Family history Mother Diagnosis Age [...] Unknown Disability 05/31/[address]: 844608600 Has never s moked or chewed tobacco 05/31/[address]: 154173817 Never drinks alco hol 05/31/2018 Has the patient ever used illegal drugs? Unknown Has never used illegal drugs 05/31/2018 DNR Order/ Advanced Directive Unknown Full Code 05/31/2018 Allergies, Adverse Reactions, Alerts Substance Reaction Codes Entered Date Inactivated Date Status OxyContin itch, RxNorm: 936169 01/13/2021 No Inactive Da te Active *No [...] ICD-10: E78. 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 oysterman (current) use of non-steroidal anti-inflammatories (NSAID) [...] toe ICD-10: S90.416A ICD-9: 917.0 02/14/2020 Resolved [place] eye ICD-10: H10.029 ICD-9: 372.03 12/29/2019 Resolved [...] Instructions omeprazole 20 mg capsule,delayed release RxNorm: 627314 Take 1 Capsule(s) Oral every evening 022 2022 Inactive Alcohol Prep Pads RxNorm: 589067 USE EACH MORNING 022 2021 Inactive E11.42 clotrimazole 1 % topical cream RxNorm: 578596 Apply 1 Application Topical two times a day as needed apply to affected area(s) twice daily until healed 2021 Inactive Victoza 2-Sebastián 0.6 mg/0.1 mL (18 mg/3 mL) subcutaneous pen injector RxNorm: 453049 Inject 0.6-1.8 Milligram(s) Subcutaneous once a week Inject 0.6mg/0.1ml week one, 1.2mg/0.2ml week two, 1.8/0.3ml weekly thereafter 2021 Inactive ibuprofen 800 mg tablet RxNorm: 152034 Take 1 Tablet(s) Oral Q8H as needed for pain take with food No Stop Date Active Ozempic 1 mg/dose (4 mg/3 mL) subcutaneous pen injector RxNorm: 0941243 Take 1 Unit Dose Subcutaneous QWeek Tuesday2021 Inactive lisinopril 2.5 mg tablet RxNorm: 306782 Take 1 Tablet(s) Oral every day 2021 Inactive lisinopril 2.5 mg tablet RxNorm: 898225 Take 1 Tablet(s) Oral every day 2022 Inactive hydrochlorothiazide 25 mg tablet RxNorm: 877572 Take 1 Tablet(s) Oral every day 2021 Inactive Ozempic 1 mg/dose (4 mg/3 mL) subcutaneous pen injector RxNorm: 5555122 Take 1 Unit Dose Subcutaneous QWeek 2021 Inactive famotidine 20 mg tablet RxNorm: 176765 Take 1 Tablet(s) Oral every morning 2021 Inactive levothyroxine 50 mcg tablet RxNorm: 188443 Take 1 Tablet(s) Oral every day 2021 Inactive atorvastatin 20 mg tablet RxNorm: 421482 Take 1 Tablet(s) Oral every night at bedtime 2021 Inactive Cleocin T 1 % lotion RxNorm: 751788 Take 2 Gram(s) Topical every day 022 2021 Inactive Cleocin T 1 % lotion RxNorm: 365516 Take 2 Gram(s) Topical every day 022 2021 Inactive Ozempic 1 mg/dose (4 mg/3 mL) subcutaneous pen injector RxNorm: 2624716 Take 1 Unit Dose Subcutaneous QWeek 022 2021 Inactive Ozempic 0.25 mg or 0.5 mg (2 mg/1.5 mL) subcutaneous pen injector RxNorm: 3009274 INJECT 0.5 MGS SUBCUTANEOUSLY EVERY WEEK 022 2021 Inactive omeprazole 20 mg capsule,delayed release RxNorm: 308579 Take 1 Capsule(s) Oral every evening 2021 Inactive levothyroxine 50 mcg tablet RxNorm: 250898 Take 1 Tablet(s) Oral every day 2021 Inactive atorvastatin 20 mg tablet RxNorm: 579245 Take 1 Tablet(s) Oral every night at bedtime 2021 Inactive This refill negates all other refills of this medication lisinopril 2.5 mg tablet RxNorm: 942499 Take 1 Tablet(s) Oral every day 022 2021 Inactive gabapentin 300 mg capsule RxNorm: 303016 Take 1 Capsule(s) Oral three times a day 2021 Inactive montelukast 10 mg tablet RxNorm: 841706 Take 1 Tablet(s) Oral every day 022 2021 Inactive cholecalciferol (vitamin D3) 50 mcg (2,000 unit) tablet RxNorm: 675968 Take 1 Tablet(s) Oral every day 022 2022 Inactive Myrbetriq 50 mg tablet,extended release RxNorm: 8118649 1 Tablet(s) Oral every day No Stop Date Active Ozempic 0.25 mg or 0.5 mg (2 mg/1.5 mL) subcutaneous pen injector RxNorm: 5531162 inject 0.5 milligrams subcutaneously every week 022 2021 Inactive Ozempic 0.25 mg or 0.5 mg (2 mg/1.5 mL) subcutaneous pen injector RxNorm: 6273652 Take 0.5 Capsule(s) Injection once a week 022 2021 Inactive omeprazole 20 mg capsule,delayed release RxNorm: 257024 Take 1 Capsule(s) Oral every evening 021 2020 Inactive Ozempic 0.25 mg or 0.5 mg (2 mg/1.5 mL) subcutaneous pen injector RxNorm: 2145519 Take 0.25 Milligram(s) Subcutaneous once a week 021 2021 Inactive Easy Touch Alcohol Prep Pads RxNorm: 698485 USE DIRECTED EACH MORNING 021 2021 Inactive Probiotic 10 billion cell capsule RxNorm: 0296672 Take 1 Capsule(s) Oral every day 2021 Inactive levothyroxine 50 mcg tablet RxNorm: 995230 Take 1 Tablet(s) Oral every day 2020 Inactive Acid [employer] (famotidine) 20 mg tablet RxNorm: 449498 Take 1 Tablet(s) Oral every morning 2020 Inactive Heartburn Relief (famotidine) 10 mg tablet RxNorm: 514180 Take 1 Tablet(s) Oral QAM 2020 Inactive levothyroxine 50 mcg tablet RxNorm: 148539 Take 1 Tablet(s) Oral QD 2020 Inactive Singulair 10 mg tablet RxNorm: 860721 TAKE (1) TABLET BY MOUTH DAILY 2020 Inactive metformin 1,000 mg tablet RxNorm: 202840 1 Tablet(s) Oral two times a day 2021 Inactive lisinopril 2.5 mg tablet RxNorm: 207790 Take 1 Tablet(s) Oral every day 2020 Inactive hydrochlorothiazide 25 mg tablet RxNorm: 425451 Take 1 Tablet(s) Oral every day 021 2020 Inactive ondansetron 4 mg disintegrating tablet RxNorm: 211122 1 Tablet(s) Oral two times a day 021 2020 Inactive Sudafed 12 Hour 120 mg tablet,extended release RxNorm: 7813247 TAKE 1 TABLET BY MOUTH EVERY 12 HOURS NEEDED 2021 Inactive Heartburn Relief (famotidine) 10 mg tablet RxNorm: 027838 Take 1 Tablet(s) Oral every morning 021 2020 Inactive omeprazole 20 mg capsule,delayed release RxNorm: 272536 1 Capsule(s) Oral every evening 021 2020 Inactive sertraline 100 mg tablet RxNorm: 652823 2 Tablet(s) Oral every day 021 2020 Inactive levothyroxine 50 mcg tablet RxNorm: 211376 TAKE (1) TABLET BY MOUTH DAILY 021 2020 Inactive metformin 500 mg tablet RxNorm: 386876 1 Tablet(s) Oral two times a day take with 500mg to equal 1000mg 021 2020 Inactive gabapentin 300 mg capsule RxNorm: 339023 TAKE 1 CAPSULE BY MOUTH THREE TIMES A DAY 021 2020 Inactive lisinopril 2.5 mg tablet RxNorm: 349667 TAKE 1 TABLET BY MOUTH DAILY 021 2020 Inactive gabapentin 300 mg capsule RxNorm: 685159 TAKE 1 CAPSULE BY MOUTH THREE TIMES A DAY 021 2020 Inactive Singulair 10 mg tablet RxNorm: 804239 TAKE (1) TABLET BY MOUTH DAILY 021 2020 Inactive metformin 1,000 mg tablet RxNorm: 102051 1 Tablet(s) Oral two times a day 021 2020 Inactive atorvastatin 40 mg tablet RxNorm: 171247 1 Tablet(s) Oral every day 021 2020 Inactive omeprazole 20 mg capsule,delayed release RxNorm: 459350 1 Capsule(s) Oral every evening 021 2020 Inactive famotidine 10 mg tablet RxNorm: 272015 1 Tablet(s) Oral every morning 021 2020 Inactive Alcohol Prep Pads RxNorm: 756031 USE EACH MORNING 021 2020 Inactive omeprazole 20 mg capsule,delayed release RxNorm: 560664 1 Capsule(s) Oral two times a day 021 2021 Inactive omeprazole 20 mg capsule,delayed release RxNorm: 597642 TAKE 1 CAPSULE BY MOUTH EVERY DAY 2021 Inactive Macrobid 100 mg capsule RxNorm: 217496 1 Capsule(s) Oral every 12 hours with food 2020 Inactive omeprazole 20 mg capsule,delayed release RxNorm: 439247 1 Capsule(s) Oral two times a day 2021 Inactive metformin 1,000 mg tablet RxNorm: 014111 1 Tablet(s) Oral two times a day 2020 Inactive start on September 11, 2020 metformin 500 mg tablet RxNorm: 221042 1 Tablet(s) Oral two times a day take with 500mg to equal 1000mg 2019 Inactive gabapentin 300 mg capsule RxNorm: 709317 TAKE 1 CAPSULE BY MOUTH THREE TIMES DAILY 2020 Inactive cetirizine 10 mg tablet RxNorm: 4364914 TAKE (1) TABLET BY MOUTH DAILY 2020 Inactive metformin 500 mg tablet RxNorm: 856622 1 Tablet(s) Oral two times a day 2019 Inactive loperamide 2 mg tablet RxNorm: 019760 1 Tablet(s) Oral as needed take one tablet after each loose stool, maximum of 8 tablets in 24 hours 2021 Inactive Sudafed 12 Hour 120 mg tablet,extended release RxNorm: 3762170 TAKE 1 TABLET BY MOUTH EVERY 12 HOURS NEEDED 2019 Inactive hydrochlorothiazide 25 mg tablet RxNorm: 797449 TAKE (1) TABLET BY MOUTH EVERY DAY 2019 Inactive omeprazole 20 mg capsule,delayed release RxNorm: 820900 TAKE 1 CAPSULE BY MOUTH EVERY DAY 2020 Inactive metformin 500 mg tablet RxNorm: 598881 1 Tablet(s) Oral every day 2019 Inactive True Metrix Glucose Test Strip RxNorm: 1 Test Strips Miscellaneous two times a day as needed No Stop Date Active metformin 500 mg tablet RxNorm: 994444 1 Tablet(s) Oral every day 020 2019 Inactive diclofenac sodium 75 mg tablet,delayed release RxNorm: 797837 1 Tablet(s) PO BID 2021 Inactive This refill negates all other refills of this medication Sudafed 12 Hour 120 mg tablet,extended release RxNorm: 5092082 TAKE 1 TABLET BY MOUTH EVERY 12 HOURS NEEDED 020 2019 Inactive True Metrix Glucose Test Strip RxNorm: 1 Test Strips Miscellaneous every morning 020 2019 Inactive 100/container True Metrix Glucose Test Strip RxNorm: 1 Test Strips Miscellaneous QAM 020 2019 Inactive 100/container loperamide 2 mg tablet RxNorm: 559751 1 Tablet(s) Oral as needed take one tablet after each loose stool, maximum of 8 tablets in 24 hours 020 2019 Inactive cetirizine 10 mg tablet RxNorm: 8375260 1 Tablet(s) PO daily 2019 Inactive loperamide 2 mg tablet RxNorm: 295994 1 Tablet(s) Oral as needed take one tablet after each loose stool, maximum of 8 tablets in 24 hours 2019 Inactive quetiapine 100 mg tablet RxNorm: 967086 1 Tablet(s) Oral every night at bedtime 2019 Inactive levothyroxine 50 mcg tablet RxNorm: 306659 1 Tablet(s) PO daily 2020 Inactive gabapentin 300 mg capsule RxNorm: 572414 1 Capsule(s) PO TID 2019 Inactive levothyroxine 50 mcg tablet RxNorm: 493522 1 Tablet(s) PO daily 020 2019 Inactive lisinopril 2.5 mg tablet RxNorm: 027490 1 Tablet(s) PO daily 020 2020 Inactive gabapentin 300 mg capsule RxNorm: 271651 1 Capsule(s) PO TID 020 2019 Inactive cetirizine 10 mg tablet RxNorm: 2787169 1 Tablet(s) PO daily 020 2019 Inactive Singulair 10 mg tablet RxNorm: 847992 1 Tablet(s) PO daily 2020 Inactive gentamicin 0.3 % eye drops RxNorm: 267965 1 Drop(s) ophthalmic (eye) four times a day 2019 Inactive gentamicin 0.3 % eye drops RxNorm: 615155 1 Drop(s) ophthalmic (eye) four times a day 2019 Inactive gentamicin 0.3 % eye drops RxNorm: 061741 1 Drop(s) ophthalmic (eye) four times a day 2019 Inactive hydrochlorothiazide 25 mg tablet RxNorm: 873843 1 Tablet(s) Oral every day 2019 Inactive Sudafed 12 Hour 120 mg tablet,extended release RxNorm: 8457864 TAKE (1) TABLET BY MOUTH EVERY 12 HOURS NEEDED 2019 Inactive loperamide 2 mg tablet RxNorm: 927095 1 Tablet(s) Oral as needed take one tablet after each loose stool, maximum of 8 tablets in 24 hours 2019 Inactive loperamide 2 mg tablet RxNorm: 466529 1 Tablet(s) Oral as needed take one tablet after each loose stool, maximum of 8 tablets in 24 hours 2019 Inactive atorvastatin 40 mg tablet RxNorm: 621001 1 Tablet(s) Oral every day 2020 Inactive quetiapine 100 mg tablet RxNorm: 951360 1 Tablet(s) Oral every night at bedtime 2019 Inactive sertraline 100 mg tablet RxNorm: 458130 1 Tablet(s) Oral 020 2019 Inactive omeprazole 20 mg capsule,delayed release RxNorm: 847441 1 Capsule(s) Oral every day 020 2019 Inactive amoxicillin 250 mg capsule RxNorm: 819350 1 Capsule(s) Oral three times a day 2019 Inactive multivitamin with iron-mineral tablet RxNorm: 1 Tablet(s) Oral every day 020 2021 Inactive cetirizine 10 mg tablet RxNorm: 5113344 1 Tablet(s) PO daily 2019 Inactive This refill negates all other refills of this medication. Please do not auto refill Singulair 10 mg tablet RxNorm: 101657 1 Tablet(s) PO daily 2019 Inactive This refill negates all other refills of this medication gabapentin 300 mg capsule RxNorm: 057957 1 Capsule(s) PO TID 2019 Inactive lisinopril 2.5 mg tablet RxNorm: 026042 1 Tablet(s) PO daily 2019 Inactive levothyroxine 50 mcg tablet RxNorm: 568206 1 Tablet(s) PO daily 2019 Inactive This refill negates all other refills of this medication hydrochlorothiazide 25 mg tablet RxNorm: 866035 1 Tablet(s) Oral every day 2019 Inactive fenugreek seed extract 500 mg capsule RxNorm: 1 Capsule(s) Oral three times a day 2021 Inactive Alcohol Prep Pads RxNorm: 225717 1 Patch TOP QAM 2020 Inactive loperamide 2 mg tablet RxNorm: 809197 1 Tablet(s) Oral as needed take one [...] 2019 Inactive hydrochlorothiazide 25 mg tablet RxNorm: 425348 1 Tablet(s) Oral every day 2019 Inactive Sudafed 12 Hour 120 mg tablet,extended release RxNorm: 9583443 1 Tablet(s) Oral every 12 hours as needed 2018 Inactive omeprazole 20 mg capsule,delayed release RxNorm: 771024 1 Capsule(s) Oral every day 019 2019 Inactive Sudafed 12 Hour 120 mg tablet,extended release RxNorm: 3382775 1 Tablet(s) Oral every 12 hours as needed 2018 Inactive pantoprazole 40 mg tablet,delayed release RxNorm: 999497 1 Tablet(s) Oral every day 2018 Inactive discontinue any other H2Blkr. and PPI albuterol sulfate 2.5 mg/3 mL (0.083 %) solution for nebulization RxNorm: 061334 1 Vial Inhalation every four hours as needed as needed for dyspnea 2019 Inactive 60/box. This refill negates all other refills of this medication. Please do not fill early. Please do not auto refill. Symbicort 160 mcg-4.5 mcg/actuation HFA aerosol inhaler RxNorm: 5031659 2 Puff(s) INH BID No Stop Date Active Alcohol Prep Pads RxNorm: 005650 1 Patch TOP QAM 019 2019 Inactive Ventolin HFA 90 mcg/actuation aerosol inhaler RxNorm: 729987 2 Puff(s) INH QID 019 2019 Inactive Please do not fill early. Please do not auto refill. This refill negates all other refills of this medication True Metrix Glucose Test Strip RxNorm: 1 Test Strips Miscellaneous QAM 019 2019 Inactive 100/container atorvastatin 40 mg tablet RxNorm: 166480 1 Tablet(s) Oral every day 019 2019 Inactive buspirone 7.5 mg tablet RxNorm: 518169 1 Tablet(s) PO BID 019 2020 Inactive This refill negates all other refills of this medication hydrochlorothiazide 12.5 mg tablet RxNorm: 449766 1 Tablet(s) PO QAM 019 2019 Inactive levmetamfetamine 50 mg nasal inhaler RxNorm: 1 Unit(s) NASAL Q3-4H Do not use more than every 3 hours or 8 times/24hours 2021 Inactive Please do not auto refill. This refill negates all other refills of this medication Ventolin HFA 90 mcg/actuation aerosol inhaler RxNorm: 910706 2 Puff(s) INH QID 2018 Inactive Please do not fill early. Please do not auto refill. This refill negates all other refills of this medication Singulair 10 mg tablet RxNorm: 548768 1 Tablet(s) PO daily 019 2019 Inactive This refill negates all other refills of this medication cetirizine 10 mg tablet RxNorm: 2841099 1 Tablet(s) PO daily 019 2019 Inactive This refill negates all other refills of this medication. Please do not auto refill levothyroxine 50 mcg tablet RxNorm: 554369 1 Tablet(s) PO daily 019 2019 Inactive This refill negates all other refills of this medication diclofenac sodium 75 mg tablet,delayed release RxNorm: 747995 1 Tablet(s) PO BID 019 2019 Inactive This refill negates all other refills of this medication ranitidine 150 mg tablet RxNorm: 044732 1 Tablet(s) PO BID 019 2018 Inactive This refill negates all other refills of this medication Calcium 600-D3 Plus (mag-zinc) 600 mg calcium-800 unit-50 mg tablet RxNorm: 1 Tablet(s) PO daily take an additonal tablet for itching. 2018 Inactive This refill negates all other refills of this medication albuterol sulfate 2.5 mg/3 mL (0.083 %) solution for nebulization RxNorm: 672975 1 Vial INH QID 2018 Inactive 60/box. This refill negates all other refills of this medication. Please do not fill early. Please do not auto refill. lisinopril 2.5 mg tablet RxNorm: 735762 1 Tablet(s) PO daily 019 2019 Inactive gabapentin 300 mg capsule RxNorm: 687062 1 Capsule(s) PO TID 019 2019 Inactive atorvastatin 20 mg tablet RxNorm: 689565 1 Tablet(s) PO QHS 2018 Inactive This refill negates all other refills of this medication TRUEplus Lancets 30 gauge RxNorm: 1 Lancets Miscellaneous QAM 019 2018 Inactive 100/box gabapentin 300 mg capsule RxNorm: 579744 1 Capsule(s) PO TID 2018 Inactive Flintstones Complete (iron) 18 mg iron chewable tablet RxNorm: 1 Tablet(s) PO daily 019 2021 Inactive This refill negates all other refills of this medication gabapentin 300 mg capsule RxNorm: 306342 1 Capsule(s) PO TID as needed 019 2018 Inactive True Metrix Glucose Test Strip RxNorm: 1 Test Strips Miscellaneous QAM 2018 Inactive 100/container Alcohol Prep Pads RxNorm: 515505 1 Patch TOP QAM 019 2018 Inactive TRUEplus Lancets 30 gauge RxNorm: 1 Lancets Miscellaneous QAM 019 2018 Inactive 100/box lisinopril 2.5 mg tablet RxNorm: 463430 1 Tablet(s) PO daily 019 2018 Inactive ranitidine 150 mg tablet RxNorm: 508609 1 Tablet(s) PO BID 019 2018 Inactive This refill negates all other refills of this medication albuterol sulfate 2.5 mg/3 mL (0.083 %) solution for nebulization RxNorm: 376922 1 Vial INH QID 019 2018 Inactive [...] this medication gabapentin 300 mg capsule RxNorm: 613032 1 Capsule(s) PO TID as needed 019 2018 Inactive atorvastatin 20 mg tablet RxNorm: 344888 1 Tablet(s) PO QHS 019 2018 Inactive This refill negates all other refills of this medication trazodone 50 mg tablet RxNorm: 586290 1 Tablet(s) PO QHS 019 2018 Inactive This refill negates all other refills of this medication Ventolin HFA 90 mcg/actuation aerosol inhaler RxNorm: 316228 2 Puff(s) INH QID 019 2018 Inactive Please do not fill early. Please do not auto refill. This refill negates all other refills of this medication Calcium 600-D3 Plus 600 mg calcium-800 unit-50 mg tablet RxNorm: 1 Tablet(s) PO daily take an additonal tablet for itching. 019 2018 Inactive This refill negates all other refills of this medication Singulair 10 mg tablet RxNorm: 904602 1 Tablet(s) PO daily 019 2018 Inactive This refill negates all other refills of this medication buspirone 7.5 mg tablet RxNorm: 175479 1 Tablet(s) PO BID 019 2018 Inactive This refill negates all other refills of this medication diclofenac sodium 75 mg tablet,delayed release RxNorm: 967665 1 Tablet(s) PO BID 019 2018 Inactive This refill negates all other refills of this medication hydrochlorothiazide 12.5 mg tablet RxNorm: 687032 1 Tablet(s) PO QAM 019 2018 Inactive metoprolol succinate ER 50 mg tablet,extended release 24 hr RxNorm: 680010 1 Tablet(s) PO daily 019 2018 Inactive This refill negates all other refills of this medication levothyroxine 50 mcg tablet RxNorm: 397035 1 Tablet(s) PO daily 019 2018 Inactive This refill negates all other refills of this medication cetirizine 10 mg tablet RxNorm: 5254109 1 Tablet(s) PO daily 019 2018 Inactive This refill negates all other refills of this medication. Please do not auto refill Flintstones Complete (iron) 18 mg iron chewable tablet RxNorm: 1 Tablet(s) PO daily 019 2018 Inactive This refill negates all other refills of this medication buspirone 7.5 mg tablet RxNorm: 731219 1 Tablet(s) PO BID 2018 Inactive cetirizine 10 mg tablet RxNorm: 8319736 1 Tablet(s) PO daily 2018 Inactive Guaiasorb DM 10 mg-100 mg/5 mL oral liquid RxNorm: 417162 10 Milliliter(s) PO As needed every 4 hr 2018 Inactive Vicks Vaporub 4.7 %-1.2 %-2.6 % topical ointment RxNorm: 5553212 1 Application TOP TID 2018 Inactive levmetamfetamine 50 mg nasal inhaler RxNorm: 1 Unit(s) NASAL Q3-4H 018 2017 Inactive sertraline 50 mg tablet RxNorm: 344459 1 Tablet(s) PO daily 018 2018 Inactive Please note dose trazodone 50 mg tablet RxNorm: 343222 1 Tablet(s) PO QHS 018 2018 Inactive sertraline 50 mg tablet RxNorm: 313947 1 Tablet(s) PO daily 018 2017 Inactive amoxicillin 500 mg tablet RxNorm: 644298 1 Tablet(s) PO Q12H 018 2017 Inactive albuterol sulfate 2.5 mg/3 mL (0.083 %) solution for nebulization RxNorm: 994777 1 Vial INH QID 2018 Inactive 60/box. Please do not fill early. Please do not auto refill. Prozac 10 mg capsule RxNorm: 480401 1 Capsule(s) PO daily 018 2017 Inactive buspirone 7.5 mg tablet RxNorm: 478915 1 Tablet(s) PO BID 018 2018 Inactive gabapentin 300 mg capsule RxNorm: 816100 1 Capsule(s) PO TID as needed 2018 Inactive hydrochlorothiazide 12.5 mg tablet RxNorm: 465495 1 Tablet(s) PO QAM 018 2018 Inactive ranitidine 150 mg tablet RxNorm: 315097 1 Tablet(s) PO BID 018 2018 Inactive Macrobid 100 mg capsule RxNorm: 525582 1 Capsule(s) PO Q12H 018 2017 Inactive Singulair 10 mg tablet RxNorm: 645441 1 Tablet(s) PO daily 018 2018 Inactive Ventolin HFA 90 mcg/actuation aerosol inhaler RxNorm: 0265591 2 Puff(s) INH QID 018 2018 Inactive Singulair 10 mg tablet RxNorm: 250772 1 Tablet(s) PO daily 018 2017 Inactive buspirone 7.5 mg tablet RxNorm: 035643 1 Tablet(s) PO BID 018 2017 Inactive Prozac 10 mg capsule RxNorm: 854491 1 Capsule(s) PO daily 018 2017 Inactive diclofenac sodium 75 mg tablet,delayed release RxNorm: 099707 1 Tablet(s) PO BID 018 2017 Inactive lisinopril 2.5 mg tablet RxNorm: 807465 1 Tablet(s) PO daily 018 2017 Inactive Neilmed Pediatric Sinus Rinse Refill packet RxNorm: 1 Unit Dose NASAL PRN 018 2021 Inactive metoprolol succinate ER 50 mg tablet,extended release 24 hr RxNorm: 618158 1 Tablet(s) PO daily 018 2017 Inactive levothyroxine 50 mcg tablet RxNorm: 233864 1 Tablet(s) PO daily 018 2017 Inactive TRUEplus Lancets 30 gauge RxNorm: 1 Lancets Miscellaneous QAM 018 2017 Inactive 100/box Ventolin HFA 90 mcg/actuation aerosol inhaler RxNorm: 875358 2 Puff(s) INH QID 018 2017 Inactive Aleve 220 mg capsule RxNorm: 0348760 1 Capsule(s) PO BID 018 2018 Inactive ranitidine 150 mg tablet RxNorm: 936719 1 Tablet(s) PO BID 018 2017 Inactive gabapentin 300 mg capsule RxNorm: 519807 1 Capsule(s) PO TID as needed 018 2017 Inactive atorvastatin 20 mg tablet RxNorm: 676893 1 Tablet(s) PO QHS 018 2017 Inactive True Metrix Glucose Test Strip RxNorm: 1 Test Strips Miscellaneous QAM 018 2017 Inactive 50/container Calcium 600-D3 Plus 600 mg calcium-800 unit-50 mg tablet RxNorm: 1 Tablet(s) PO daily take an additonal tablet for itching. 018 2017 Inactive hydrochlorothiazide 12.5 mg tablet RxNorm: 634635 1 Tablet(s) PO QAM 018 2017 Inactive Flintstones Complete (iron) 18 mg iron chewable tablet RxNorm: 1 Tablet(s) PO daily 018 2017 Inactive True Metrix Glucose Meter RxNorm: miscellaneous 019 2018 Inactive sertraline 50 mg tablet RxNorm: 684995 1 Tablet(s) PO daily 020 2019 Inactive loperamide 2 mg tablet RxNorm: 156728 oral 019 2018 Inactive d-mannose oral powder RxNorm: PO 018 2021 Inactive Symbicort 160 mcg-4.5 mcg/actuation HFA aerosol inhaler RxNorm: 0600532 2 Puff(s) INH BID 2018 Inactive Medication Administered No Medication Administered data Procedures Procedure Codes Date Hypertension CPT-4: HTN 08/17/2022 [place] Fany Assessment CPT-4: DSWA 04/02 Patient Health [...] CPT-4: VACP Fall Risk Assessment SNOMED CT: 39951548 4 CPT-4: DFRA 01/13/2021 [place] Fany Assessment CPT-4: DSWA 03/1 04/2021 Urinalysis, dip stick CPT-4: 11710 09/24/2020 Patient Health Questionnaire CPT-4: DPHQ Electrocardiogram CPT-4: 85169 05/14/2020 Tobacco Assessment/Screening CPT-4: TCA Fall Risk Assessment SNOMED CT: 70387871 4 CPT-4: DFRA 01/01/2020 Functional Assessment CPT-4: DFA 01/01/2020 [place] F[place] Assessment CPT-4: DSWA 11/04 Patient Health Questionnaire CPT-4: DPHQ [place] Assessment CPT-4: DSWA 10/03 Hypertension CPT-4: HTN 10/17/2019 Fall Risk Assessment SNOMED CT: 13296030 4 CPT-4: DFRA 09/19/2019 Functional Assessment CPT-4: DFA 09/19/2019 Urinalysis, dip stick CPT-4: 07304 06/21/2019 Tobacco Assessment/Screening CPT-4: TCA Patient Health Questionnaire CPT-4: DPHQ AHA/REBECCA Classification Assessment CPT-4: DAHA 04/25/2019 Controlled Substance Report CPT-4: CTRSU 04/03 Urinalysis, dip stick CPT-4: 93796 03/28/2019 Urinalysis, dip stick CPT-4: 98250 03/28/2019 [id number] CPT-4: 69745 Unknown V1Y-Labojbpnodssczk CPT-4: 05118 Unknown Z0V-Wbxkjfaedexdjwx CPT-4: 83520 Unknown Y9S-Oprskglluugdfka CPT-4: 27880 Unknown A5C-Lsodwmxdzppotcr CPT-4: 12098 Unknown Q5J-Qmjbzhwjyewlrih CPT-4: 79984 Unknown [id number]-Ppzqttoigmhwidd CPT-4: 09249 Unknown A4O-Ztwhavkrbxrbvgh CPT-4: 06701 Unknown Y8T-Pnwlzzvaipgwuuw CPT-4: 01721 Unknown L1U-Rgkoudlbzbzhlly CPT-4: 21625 Unknown Gynecology Referral SNOMED CT: [id number] CPT-4: R14 Unknown Reason For Visit No Reason For Visit data Plan of Care Planned Activity Notes Codes Status Date Referral: Pending Gynecology Referral Information Referral Processed Referral: Pending Pulmonolog y Referral Information Referral Processed Referral: Pending Psychiatry Referral Information Referral Initiated Referral: Pending Respirator y Services Referral Information Referral Initiated Referral: Pending Ophthalmol ogy Referral Information Referral Initiated Referral: [facility] WPtel: [address] [facility] [address] [employer] placed a call out to the patient to notify her that it has been recommended that she be seen by a urologist. Patient agreed to be seen, does not have a provider of choice and no transportation issues. [employer] faxed referral and clinical notes to [facility] in [place], [place] near the patient's home. Patient to [...] prefers a provider in the [place] or [place] area. [employer] placed a call out to everyone listed in the area and the only location that was able to accept the patient's insurance was [address] [id number] and spoke with Maylin. Maylin asked that the patient's referral, face sheet and visit notes be faxed to . [employer] faxed over requested documents. Patient appointment confirmation letter generated and mailed to her home address. Patient to call to schedule an appointment. [facility] [address] [facility] [address] [place], [place] [id number] Patient notified that it has been advised that she be seen by Neurology. Patient agreed to be seen and prefers to be seen by a provider in the [place], [place] area. Patient denies any concerns with transportation, and prefers to schedule her own appointment. [employer] placed a call out to [facility] [...]
--- OUTSIDE RECORDS SUMMARY | 2023-12-07 02:22 | XMS_ITS | CCD ---
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 [employer] Supervisor Name Role Phone Palomo KING, Anna Primary Care Provider Unav ailable Unavailable Chronic Care Management Unavaila ble Summary Purpose DataExchange Insurance Providers Payer name Policy type / Coverage type Covered libertarian ID Effective Begin Date Effective End Date SUKI MAYO [id number] Unknown Unknown Family history Mother Diagnosis Age [...] Unknown Disability 05/31/[address]: 570166606 Has never s moked or chewed tobacco 05/31/[address]: 172300914 Never drinks alco hol 05/31/2018 Has the patient ever used illegal drugs? Unknown Has never used illegal drugs 05/31/2018 DNR Order/ Advanced Directive Unknown Full Code 05/31/2018 Allergies, Adverse Reactions, Alerts Substance Reaction Codes Entered Date Inactivated Date Status OxyContin itch, RxNorm: 243213 01/13/2021 No Inactive Da te Active *No [...] ICD-10: E78. 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 [facility] (current) use of non-steroidal anti-inflammatories (NSAID) [...] 10/03/2018 Inactive Other care home (current) dr sharma therapy ICD-10: Z79.899 ICD-9: V58.69 04/25/2019 Inactive Type 2 diabetes mellitus wit hout complications ICD-10: E11.9 ICD-9: 250.00 10/03/2018 Inactive Wheezing ICD-10: R06.2 ICD-9: 786.07 08/08/2018 Inactive Abnormal urine finding ICD-10: R82.90 ICD-9: 791.9 09/24/2020 Resolved Abrasion of toe ICD-10: S90.416A ICD-9: 917.0 02/14/2020 Resolved [place] eye ICD-10: H10.029 ICD-9: 372.03 12/29/2019 Resolved [...] Fill Instructions gabapentin 300 mg capsule RxNorm: 878956 Take 1 Capsule(s) Oral three times a day 023 2022 Inactive montelukast 10 mg tablet RxNorm: 132606 Take 1 Tablet(s) Oral every day 023 2022 Inactive omeprazole 20 mg capsule,delayed release RxNorm: 580757 Take 1 Capsule(s) Oral every evening 022 2022 Inactive Alcohol Prep Pads RxNorm: 342875 USE EACH MORNING 022 2021 Inactive E11.42 clotrimazole 1 % topical cream RxNorm: 939942 Apply 1 Application Topical two times a day as needed apply to affected area(s) twice daily until healed 2021 Inactive Victoza 2-Sebastián 0.6 mg/0.1 mL (18 mg/3 mL) subcutaneous pen injector RxNorm: 265995 Inject 0.6-1.8 Milligram(s) Subcutaneous once a week Inject 0.6mg/0.1ml week one, 1.2mg/0.2ml week two, 1.8/0.3ml weekly thereafter 2021 Inactive ibuprofen 800 mg tablet RxNorm: 795291 Take 1 Tablet(s) Oral Q8H as needed for pain take with food No Stop Date Active Ozempic 1 mg/dose (4 mg/3 mL) subcutaneous pen injector RxNorm: 2617887 Take 1 Unit Dose Subcutaneous QWeek Tuesday 022 2021 Inactive lisinopril 2.5 mg tablet RxNorm: 472694 Take 1 Tablet(s) Oral every day 2021 Inactive lisinopril 2.5 mg tablet RxNorm: 926630 Take 1 Tablet(s) Oral every day 022 2022 Inactive hydrochlorothiazide 25 mg tablet RxNorm: 989237 Take 1 Tablet(s) Oral every day 022 2021 Inactive Ozempic 1 mg/dose (4 mg/3 mL) subcutaneous pen injector RxNorm: 8057887 Take 1 Unit Dose Subcutaneous QWeek 2021 Inactive famotidine 20 mg tablet RxNorm: 925352 Take 1 Tablet(s) Oral every morning 2021 Inactive levothyroxine 50 mcg tablet RxNorm: 904666 Take 1 Tablet(s) Oral every day 2021 Inactive atorvastatin 20 mg tablet RxNorm: 384883 Take 1 Tablet(s) Oral every night at bedtime 2021 Inactive Cleocin T 1 % lotion RxNorm: 298138 Take 2 Gram(s) Topical every day 022 2021 Inactive Cleocin T 1 % lotion RxNorm: 696337 Take 2 Gram(s) Topical every day 022 2021 Inactive Ozempic 1 mg/dose (4 mg/3 mL) subcutaneous pen injector RxNorm: 3829250 Take 1 Unit Dose Subcutaneous QWeek 022 2021 Inactive Ozempic 0.25 mg or 0.5 mg (2 mg/1.5 mL) subcutaneous pen injector RxNorm: 3067900 INJECT 0.5 MGS SUBCUTANEOUSLY EVERY WEEK 2021 Inactive omeprazole 20 mg capsule,delayed release RxNorm: 319304 Take 1 Capsule(s) Oral every evening 2021 Inactive levothyroxine 50 mcg tablet RxNorm: 762377 Take 1 Tablet(s) Oral every day 022 2021 Inactive atorvastatin 20 mg tablet RxNorm: 295082 Take 1 Tablet(s) Oral every night at bedtime 2021 Inactive This refill negates all other refills of this medication lisinopril 2.5 mg tablet RxNorm: 862277 Take 1 Tablet(s) Oral every day 2021 Inactive gabapentin 300 mg capsule RxNorm: 701895 Take 1 Capsule(s) Oral three times a day 022 2021 Inactive montelukast 10 mg tablet RxNorm: 220221 Take 1 Tablet(s) Oral every day 2021 Inactive cholecalciferol (vitamin D3) 50 mcg (2,000 unit) tablet RxNorm: 540432 Take 1 Tablet(s) Oral every day 2022 Inactive Myrbetriq 50 mg tablet,extended release RxNorm: 7990835 1 Tablet(s) Oral every day 022 No Stop Date Active Ozempic 0.25 mg or 0.5 mg (2 mg/1.5 mL) subcutaneous pen injector RxNorm: 7475871 inject 0.5 milligrams subcutaneously every week 2021 Inactive Ozempic 0.25 mg or 0.5 mg (2 mg/1.5 mL) subcutaneous pen injector RxNorm: 3743480 Take 0.5 Capsule(s) Injection once a week 2021 Inactive omeprazole 20 mg capsule,delayed release RxNorm: 085852 Take 1 Capsule(s) Oral every evening 2020 Inactive Ozempic 0.25 mg or 0.5 mg (2 mg/1.5 mL) subcutaneous pen injector RxNorm: 3419054 Take 0.25 Milligram(s) Subcutaneous once a week 2021 Inactive Easy Touch Alcohol Prep Pads RxNorm: 839828 USE DIRECTED EACH MORNING 2021 Inactive Probiotic 10 billion cell capsule RxNorm: 5420964 Take 1 Capsule(s) Oral every day 2021 Inactive levothyroxine 50 mcg tablet RxNorm: 522119 Take 1 Tablet(s) Oral every day [address] (famotidine) 20 mg tablet RxNorm: 431863 Take 1 Tablet(s) Oral every morning 2020 Inactive Heartburn Relief (famotidine) 10 mg tablet RxNorm: 435075 Take 1 Tablet(s) Oral QAM 2020 Inactive levothyroxine 50 mcg tablet RxNorm: 686946 Take 1 Tablet(s) Oral QD 2020 Inactive Singulair 10 mg tablet RxNorm: 611598 TAKE (1) TABLET BY MOUTH DAILY 2020 Inactive metformin 1,000 mg tablet RxNorm: 768336 1 Tablet(s) Oral two times a day 2021 Inactive lisinopril 2.5 mg tablet RxNorm: 554836 Take 1 Tablet(s) Oral every day 021 2020 Inactive hydrochlorothiazide 25 mg tablet RxNorm: 138784 Take 1 Tablet(s) Oral every day 2020 Inactive ondansetron 4 mg disintegrating tablet RxNorm: 634626 1 Tablet(s) Oral two times a day 021 2020 Inactive Sudafed 12 Hour 120 mg tablet,extended release RxNorm: 3061232 TAKE 1 TABLET BY MOUTH EVERY 12 HOURS NEEDED 021 2021 Inactive Heartburn Relief (famotidine) 10 mg tablet RxNorm: 483840 Take 1 Tablet(s) Oral every morning 021 2020 Inactive omeprazole 20 mg capsule,delayed release RxNorm: 325242 1 Capsule(s) Oral every evening 021 2020 Inactive sertraline 100 mg tablet RxNorm: 364183 2 Tablet(s) Oral every day 021 2020 Inactive levothyroxine 50 mcg tablet RxNorm: 206762 TAKE (1) TABLET BY MOUTH DAILY 2020 Inactive metformin 500 mg tablet RxNorm: 227920 1 Tablet(s) Oral two times a day take with 500mg to equal 1000mg 021 2020 Inactive gabapentin 300 mg capsule RxNorm: 145456 TAKE 1 CAPSULE BY MOUTH THREE TIMES A DAY 021 2020 Inactive lisinopril 2.5 mg tablet RxNorm: 629932 TAKE 1 TABLET BY MOUTH DAILY 021 2020 Inactive gabapentin 300 mg capsule RxNorm: 689441 TAKE 1 CAPSULE BY MOUTH THREE TIMES A DAY 021 2020 Inactive Singulair 10 mg tablet RxNorm: 445158 TAKE (1) TABLET BY MOUTH DAILY 021 2020 Inactive metformin 1,000 mg tablet RxNorm: 045501 1 Tablet(s) Oral two times a day 021 2020 Inactive atorvastatin 40 mg tablet RxNorm: 572833 1 Tablet(s) Oral every day 021 2020 Inactive omeprazole 20 mg capsule,delayed release RxNorm: 670084 1 Capsule(s) Oral every evening 02/24/11 Inactive famotidine 10 mg tablet RxNorm: 949081 1 Tablet(s) Oral every morning 2020 Inactive Alcohol Prep Pads RxNorm: 384861 USE EACH MORNING 021 2020 Inactive omeprazole 20 mg capsule,delayed release RxNorm: 797568 1 Capsule(s) Oral two times a day 2021 Inactive omeprazole 20 mg capsule,delayed release RxNorm: 690529 TAKE 1 CAPSULE BY MOUTH EVERY DAY 2021 Inactive Macrobid 100 mg capsule RxNorm: 253311 1 Capsule(s) Oral every 12 hours with food 2020 Inactive omeprazole 20 mg capsule,delayed release RxNorm: 776948 1 Capsule(s) Oral two times a day 2021 Inactive metformin 1,000 mg tablet RxNorm: 130111 1 Tablet(s) Oral two times a day 2020 Inactive start on September 11, 2020 metformin 500 mg tablet RxNorm: 367929 1 Tablet(s) Oral two times a day take with 500mg to equal 1000mg 2019 Inactive gabapentin 300 mg capsule RxNorm: 696386 TAKE 1 CAPSULE BY MOUTH THREE TIMES DAILY 2020 Inactive cetirizine 10 mg tablet RxNorm: 9264861 TAKE (1) TABLET BY MOUTH DAILY 2020 Inactive metformin 500 mg tablet RxNorm: 192242 1 Tablet(s) Oral two times a day 2019 Inactive loperamide 2 mg tablet RxNorm: 920118 1 Tablet(s) Oral as needed take one tablet after each loose stool, maximum of 8 tablets in 24 hours 2021 Inactive Sudafed 12 Hour 120 mg tablet,extended release RxNorm: 6322018 TAKE 1 TABLET BY MOUTH EVERY 12 HOURS NEEDED 2019 Inactive hydrochlorothiazide 25 mg tablet RxNorm: 127066 TAKE (1) TABLET BY MOUTH EVERY DAY 020 2019 Inactive omeprazole 20 mg capsule,delayed release RxNorm: 645719 TAKE 1 CAPSULE BY MOUTH EVERY DAY 020 2020 Inactive metformin 500 mg tablet RxNorm: 065019 1 Tablet(s) Oral every day 020 2019 Inactive True Metrix Glucose Test Strip RxNorm: 1 Test Strips Miscellaneous two times a day as needed No Stop Date Active metformin 500 mg tablet RxNorm: 243193 1 Tablet(s) Oral every day 020 2019 Inactive diclofenac sodium 75 mg tablet,delayed release RxNorm: 458410 1 Tablet(s) PO BID 020 2021 Inactive This refill negates all other refills of this medication Sudafed 12 Hour 120 mg tablet,extended release RxNorm: 3796791 TAKE 1 TABLET BY MOUTH EVERY 12 HOURS NEEDED 020 2019 Inactive True Metrix Glucose Test Strip RxNorm: 1 Test Strips Miscellaneous every morning 020 2019 Inactive 100/container True Metrix Glucose Test Strip RxNorm: 1 Test Strips Miscellaneous QA 020 2019 Inactive 100/container loperamide 2 mg tablet RxNorm: 160183 1 Tablet(s) Oral as needed take one tablet after each loose stool, maximum of 8 tablets in 24 hours 020 2019 Inactive cetirizine 10 mg tablet RxNorm: 1413956 1 Tablet(s) PO daily 020 2019 Inactive loperamide 2 mg tablet RxNorm: 437306 1 Tablet(s) Oral as needed take one tablet after each loose stool, maximum of 8 tablets in 24 hours 020 2019 Inactive quetiapine 100 mg tablet RxNorm: 236833 1 Tablet(s) Oral every night at bedtime 020 2019 Inactive levothyroxine 50 mcg tablet RxNorm: 091461 1 Tablet(s) PO daily 020 2020 Inactive gabapentin 300 mg capsule RxNorm: 622775 1 Capsule(s) PO TID 2019 Inactive levothyroxine 50 mcg tablet RxNorm: 716012 1 Tablet(s) PO daily 020 2019 Inactive lisinopril 2.5 mg tablet RxNorm: 623279 1 Tablet(s) PO daily 2020 Inactive gabapentin 300 mg capsule RxNorm: 189861 1 Capsule(s) PO TID 2019 Inactive cetirizine 10 mg tablet RxNorm: 5636322 1 Tablet(s) PO daily 2019 Inactive Singulair 10 mg tablet RxNorm: 086819 1 Tablet(s) PO daily 2020 Inactive gentamicin 0.3 % eye drops RxNorm: 554391 1 Drop(s) ophthalmic (eye) four times a day 2019 Inactive gentamicin 0.3 % eye drops RxNorm: 312008 1 Drop(s) ophthalmic (eye) four times a day 2019 Inactive gentamicin 0.3 % eye drops RxNorm: 631472 1 Drop(s) ophthalmic (eye) four times a day 2019 Inactive hydrochlorothiazide 25 mg tablet RxNorm: 020127 1 Tablet(s) Oral every day 2019 Inactive Sudafed 12 Hour 120 mg tablet,extended release RxNorm: 4640991 TAKE (1) TABLET BY MOUTH EVERY 12 HOURS NEEDED 2019 Inactive loperamide 2 mg tablet RxNorm: 174169 1 Tablet(s) Oral as needed take one tablet after each loose stool, maximum of 8 tablets in 24 hours 020 2019 Inactive loperamide 2 mg tablet RxNorm: 796260 1 Tablet(s) Oral as needed take one tablet after each loose stool, maximum of 8 tablets in 24 hours 020 2019 Inactive atorvastatin 40 mg tablet RxNorm: 451030 1 Tablet(s) Oral every day 020 2020 Inactive quetiapine 100 mg tablet RxNorm: 081014 1 Tablet(s) Oral every night at bedtime 2019 Inactive sertraline 100 mg tablet RxNorm: 878006 1 Tablet(s) Oral 020 2019 Inactive omeprazole 20 mg capsule,delayed release RxNorm: 848718 1 Capsule(s) Oral every day 2019 Inactive amoxicillin 250 mg capsule RxNorm: 217537 1 Capsule(s) Oral three times a day 2019 Inactive multivitamin with iron-mineral tablet RxNorm: 1 Tablet(s) Oral every day 2021 Inactive cetirizine 10 mg tablet RxNorm: 0746104 1 Tablet(s) PO daily 2019 Inactive This refill negates all other refills of this medication. Please do not auto refill Singulair 10 mg tablet RxNorm: 642961 1 Tablet(s) PO daily 2019 Inactive This refill negates all other refills of this medication gabapentin 300 mg capsule RxNorm: 053884 1 Capsule(s) PO TID 2019 Inactive lisinopril 2.5 mg tablet RxNorm: 712847 1 Tablet(s) PO daily 2019 Inactive levothyroxine 50 mcg tablet RxNorm: 308774 1 Tablet(s) PO daily 2019 Inactive This refill negates all other refills of this medication hydrochlorothiazide 25 mg tablet RxNorm: 346322 1 Tablet(s) Oral every day 2019 Inactive fenugreek seed extract 500 mg capsule RxNorm: 1 Capsule(s) Oral three times a day 2021 Inactive Alcohol Prep Pads RxNorm: 290290 1 Patch TOP QAM 020 2020 Inactive loperamide 2 mg tablet RxNorm: 770077 1 Tablet(s) Oral as needed take one [...] 2019 Inactive hydrochlorothiazide 25 mg tablet RxNorm: 970274 1 Tablet(s) Oral every day 2019 Inactive Sudafed 12 Hour 120 mg tablet,extended release RxNorm: 8414035 1 Tablet(s) Oral every 12 hours as needed 2018 Inactive omeprazole 20 mg capsule,delayed release RxNorm: 220043 1 Capsule(s) Oral every day 2019 Inactive Sudafed 12 Hour 120 mg tablet,extended release RxNorm: 9006083 1 Tablet(s) Oral every 12 hours as needed 019 2018 Inactive pantoprazole 40 mg tablet,delayed release RxNorm: 561901 1 Tablet(s) Oral every day 2018 Inactive discontinue any other H2Blkr. and PPI albuterol sulfate 2.5 mg/3 mL (0.083 %) solution for nebulization RxNorm: 811002 1 Vial Inhalation every four hours as needed as needed for dyspnea 2019 Inactive 60/box. This refill negates all other refills of this medication. Please do not fill early. Please do not auto refill. Symbicort 160 mcg-4.5 mcg/actuation HFA aerosol inhaler RxNorm: 3864599 2 Puff(s) INH BID No Stop Date Active Alcohol Prep Pads RxNorm: 860638 1 Patch TOP QAM 019 2019 Inactive Ventolin HFA 90 mcg/actuation aerosol inhaler RxNorm: 824433 2 Puff(s) INH QID 019 2019 Inactive Please do not fill early. Please do not auto refill. This refill negates all other refills of this medication True Metrix Glucose Test Strip RxNorm: 1 Test Strips Miscellaneous QA 019 2019 Inactive 100/container atorvastatin 40 mg tablet RxNorm: 098098 1 Tablet(s) Oral every day 019 2019 Inactive buspirone 7.5 mg tablet RxNorm: 280312 1 Tablet(s) PO BID 019 2020 Inactive This refill negates all other refills of this medication hydrochlorothiazide 12.5 mg tablet RxNorm: 682496 1 Tablet(s) PO QAM 019 2019 Inactive levmetamfetamine 50 mg nasal inhaler RxNorm: 1 Unit(s) NASAL Q3-4H Do not use more than every 3 hours or 8 times/24hours 019 2021 Inactive Please do not auto refill. This refill negates all other refills of this medication Ventolin HFA 90 mcg/actuation aerosol inhaler RxNorm: 780790 2 Puff(s) INH QID 019 2018 Inactive Please do not fill early. Please do not auto refill. This refill negates all other refills of this medication Singulair 10 mg tablet RxNorm: 794034 1 Tablet(s) PO daily 019 2019 Inactive This refill negates all other refills of this medication cetirizine 10 mg tablet RxNorm: 7419443 1 Tablet(s) PO daily 019 2019 Inactive This refill negates all other refills of this medication. Please do not auto refill levothyroxine 50 mcg tablet RxNorm: 764143 1 Tablet(s) PO daily 019 2019 Inactive This refill negates all other refills of this medication diclofenac sodium 75 mg tablet,delayed release RxNorm: 670534 1 Tablet(s) PO BID 019 2019 Inactive This refill negates all other refills of this medication ranitidine 150 mg tablet RxNorm: 724061 1 Tablet(s) PO BID 019 2018 Inactive This refill negates all other refills of this medication Calcium 600-D3 Plus (mag-zinc) 600 mg calcium-800 unit-50 mg tablet RxNorm: 1 Tablet(s) PO daily take an additonal tablet for itching. 019 2018 Inactive This refill negates all other refills of this medication albuterol sulfate 2.5 mg/3 mL (0.083 %) solution for nebulization RxNorm: 102759 1 Vial INH QID 019 2018 Inactive 60/box. This refill negates all other refills of this medication. Please do not fill early. Please do not auto refill. lisinopril 2.5 mg tablet RxNorm: 424240 1 Tablet(s) PO daily 019 2019 Inactive gabapentin 300 mg capsule RxNorm: 079861 1 Capsule(s) PO TID 019 2019 Inactive atorvastatin 20 mg tablet RxNorm: 145538 1 Tablet(s) PO QHS 019 2018 Inactive This refill negates all other refills of this medication TRUEplus Lancets 30 gauge RxNorm: 1 Lancets Miscellaneous QAM 019 2018 Inactive 100/box gabapentin 300 mg capsule RxNorm: 746089 1 Capsule(s) PO TID 019 2018 Inactive Flintstones Complete (iron) 18 mg iron chewable tablet RxNorm: 1 Tablet(s) PO daily 019 2021 Inactive This refill negates all other refills of this medication gabapentin 300 mg capsule RxNorm: 436339 1 Capsule(s) PO TID as needed 019 2018 Inactive True Metrix Glucose Test Strip RxNorm: 1 Test Strips Miscellaneous QAM 019 2018 Inactive 100/container Alcohol Prep Pads RxNorm: 552028 1 Patch TOP COUNT INCLUDES THE [facility] 019 2018 Inactive TRUEplus Lancets 30 gauge RxNorm: 1 Lancets Miscellaneous QA 019 2018 Inactive 100/box lisinopril 2.5 mg tablet RxNorm: 613675 1 Tablet(s) PO daily 019 2018 Inactive ranitidine 150 mg tablet RxNorm: 802486 1 Tablet(s) PO BID 019 2018 Inactive This refill negates all other refills of this medication albuterol sulfate 2.5 mg/3 mL (0.083 %) solution for nebulization RxNorm: 544724 1 Vial INH QID 019 2018 Inactive [...] this medication gabapentin 300 mg capsule RxNorm: 037197 1 Capsule(s) PO TID as needed 019 2018 Inactive atorvastatin 20 mg tablet RxNorm: 455264 1 Tablet(s) PO QHS 019 2018 Inactive This refill negates all other refills of this medication trazodone 50 mg tablet RxNorm: 504702 1 Tablet(s) PO QHS 019 2018 Inactive This refill negates all other refills of this medication Ventolin HFA 90 mcg/actuation aerosol inhaler RxNorm: 332594 2 Puff(s) INH QID 019 2018 Inactive Please do not fill early. Please do not auto refill. This refill negates all other refills of this medication Calcium 600-D3 Plus 600 mg calcium-800 unit-50 mg tablet RxNorm: 1 Tablet(s) PO daily take an additonal tablet for itching. 019 2018 Inactive This refill negates all other refills of this medication Singulair 10 mg tablet RxNorm: 995228 1 Tablet(s) PO daily 019 2018 Inactive This refill negates all other refills of this medication buspirone 7.5 mg tablet RxNorm: 434717 1 Tablet(s) PO BID 019 2018 Inactive This refill negates all other refills of this medication diclofenac sodium 75 mg tablet,delayed release RxNorm: 047739 1 Tablet(s) PO BID 019 2018 Inactive This refill negates all other refills of this medication hydrochlorothiazide 12.5 mg tablet RxNorm: 906240 1 Tablet(s) PO QAM 019 2018 Inactive metoprolol succinate ER 50 mg tablet,extended release 24 hr RxNorm: 132279 1 Tablet(s) PO daily 019 2018 Inactive This refill negates all other refills of this medication levothyroxine 50 mcg tablet RxNorm: 148592 1 Tablet(s) PO daily 019 2018 Inactive This refill negates all other refills of this medication cetirizine 10 mg tablet RxNorm: 8745600 1 Tablet(s) PO daily 019 2018 Inactive This refill negates all other refills of this medication. Please do not auto refill Flintstones Complete (iron) 18 mg iron chewable tablet RxNorm: 1 Tablet(s) PO daily 019 2018 Inactive This refill negates all other refills of this medication buspirone 7.5 mg tablet RxNorm: 861617 1 Tablet(s) PO BID 019 2018 Inactive cetirizine 10 mg tablet RxNorm: 8824470 1 Tablet(s) PO daily 018 2018 Inactive Guaiasorb DM 10 mg-100 mg/5 mL oral liquid RxNorm: 515272 10 Milliliter(s) PO As needed every 4 hr 2018 Inactive Vicks Vaporub 4.7 %-1.2 %-2.6 % topical ointment RxNorm: 7468185 1 Application TOP TID 2018 Inactive levmetamfetamine 50 mg nasal inhaler RxNorm: 1 Unit(s) NASAL Q3-4H 2017 Inactive sertraline 50 mg tablet RxNorm: 045406 1 Tablet(s) PO daily 2018 Inactive Please note dose trazodone 50 mg tablet RxNorm: 106620 1 Tablet(s) PO QHS 2018 Inactive sertraline 50 mg tablet RxNorm: 670673 1 Tablet(s) PO daily 2017 Inactive amoxicillin 500 mg tablet RxNorm: 803970 1 Tablet(s) PO Q12H 2017 Inactive albuterol sulfate 2.5 mg/3 mL (0.083 %) solution for nebulization RxNorm: 123418 1 Vial INH QID 2018 Inactive 60/box. Please do not fill early. Please do not auto refill. Prozac 10 mg capsule RxNorm: 640658 1 Capsule(s) PO daily 2017 Inactive buspirone 7.5 mg tablet RxNorm: 117634 1 Tablet(s) PO BID 2018 Inactive gabapentin 300 mg capsule RxNorm: 648369 1 Capsule(s) PO TID as needed 2018 Inactive hydrochlorothiazide 12.5 mg tablet RxNorm: 365124 1 Tablet(s) PO QAM 2018 Inactive ranitidine 150 mg tablet RxNorm: 082072 1 Tablet(s) PO BID 2018 Inactive Macrobid 100 mg capsule RxNorm: 004572 1 Capsule(s) PO Q12H 06/25/ 2018 Inactive Singulair 10 mg tablet RxNorm: 449790 1 Tablet(s) PO daily 018 2018 Inactive Ventolin HFA 90 mcg/actuation aerosol inhaler RxNorm: 8658695 2 Puff(s) INH QID 018 2018 Inactive Singulair 10 mg tablet RxNorm: 897828 1 Tablet(s) PO daily 018 2017 Inactive buspirone 7.5 mg tablet RxNorm: 690308 1 Tablet(s) PO BID 018 2017 Inactive Prozac 10 mg capsule RxNorm: 345484 1 Capsule(s) PO daily 018 2017 Inactive diclofenac sodium 75 mg tablet,delayed release RxNorm: 581796 1 Tablet(s) PO BID 018 2017 Inactive lisinopril 2.5 mg tablet RxNorm: 431962 1 Tablet(s) PO daily 018 2017 Inactive Neilmed Pediatric Sinus Rinse Refill packet RxNorm: 1 Unit Dose NASAL PRN 018 2021 Inactive metoprolol succinate ER 50 mg tablet,extended release 24 hr RxNorm: 586752 1 Tablet(s) PO daily 018 2017 Inactive levothyroxine 50 mcg tablet RxNorm: 153453 1 Tablet(s) PO daily 018 2017 Inactive TRUEplus Lancets 30 gauge RxNorm: 1 Lancets Miscellaneous QAM 018 2017 Inactive 100/box Ventolin HFA 90 mcg/actuation aerosol inhaler RxNorm: 040515 2 Puff(s) INH QID 018 2017 Inactive Aleve 220 mg capsule RxNorm: 5829868 1 Capsule(s) PO BID 018 2018 Inactive ranitidine 150 mg tablet RxNorm: 201598 1 Tablet(s) PO BID 018 2017 Inactive gabapentin 300 mg capsule RxNorm: 379932 1 Capsule(s) PO TID as needed 018 2017 Inactive atorvastatin 20 mg tablet RxNorm: 770521 1 Tablet(s) PO QHS 018 2017 Inactive True Metrix Glucose Test Strip RxNorm: 1 Test Strips Miscellaneous QAM 018 2017 Inactive 50/container Calcium 600-D3 Plus 600 mg calcium-800 unit-50 mg tablet RxNorm: 1 Tablet(s) PO daily take an additonal tablet for itching. 018 2017 Inactive hydrochlorothiazide 12.5 mg tablet RxNorm: 665300 1 Tablet(s) PO QAM 018 2017 Inactive Flintstones Complete (iron) 18 mg iron chewable tablet RxNorm: 1 Tablet(s) PO daily 018 2017 Inactive True Metrix Glucose Meter RxNorm: miscellaneous 019 2018 Inactive sertraline 50 mg tablet RxNorm: 932328 1 Tablet(s) PO daily 020 2019 Inactive loperamide 2 mg tablet RxNorm: 715904 oral 019 2018 Inactive d-mannose oral powder RxNorm: PO 018 2021 Inactive Symbicort 160 mcg-4.5 mcg/actuation HFA aerosol inhaler RxNorm: 6797744 2 Puff(s) INH BID 019 2018 Inactive Medication Administered No Medication Administered data Procedures Procedure Codes Date Pain Screening CPT-4: PAS 2022 Tobacco Assessment/Screening CPT-4: TCA Hypertension CPT-4: HTN 08/17/2022 [place]any Assessment CPT-4: DSWA 04/02 Patient Health [...] CPT-4: VACP Fall Risk Assessment SNOMED CT: 81275408 4 CPT-4: DFRA 01/13/2021 [place] Fany Assessment CPT-4: DSWA 12/01 Urinalysis, dip stick CPT-4: 42570 09/24/2020 Patient Health Questionnaire CPT-4: DPHQ Electrocardiogram CPT-4: 39966 05/14/2020 Tobacco Assessment/Screening CPT-4: TCA Fall Risk Assessment SNOMED CT: 56090420 4 CPT-4: DFRA 01/01/2020 Functional Assessment CPT-4: DFA 01/01/2020 [place] Fany Assessment CPT-4: DSWA 11/04 Patient Health Questionnaire CPT-4: DPHQ [place] Fany Assessment CPT-4: DSWA 10/03 Hypertension CPT-4: HTN 10/17/2019 Fall Risk Assessment SNOMED CT: [id number] 4 CPT-4: DFRA 09/19/2019 Functional Assessment CPT-4: DFA 09/19/2019 Urinalysis, dip stick CPT-4: 55100 06/21/2019 Tobacco Assessment/Screening CPT-4: TCA Patient Health Questionnaire CPT-4: DPHQ AHA/REBECCA Classification Assessment CPT-4: DAHA 04/25/2019 Controlled Substance Report CPT-4: CTRSU 04/03 Urinalysis, dip stick CPT-4: 10343 03/28/2019 Urinalysis, dip stick CPT-4: 44509 03/28/2019 H9A-Lqbyjtsgfuaumdi CPT-4: 87057 Unknown J9A-Lhurawdnvtwckox CPT-4: 98692 Unknown N3V-Btvuyuytjqikonf CPT-4: 79437 Unknown I7I-Llrvnqgunxlbsqu CPT-4: 75739 Unknown J7Y-Kgvblclcaebxwhr CPT-4: 58219 Unknown F2E-Bjxaoaixzvspqlc CPT-4: 42211 Unknown Q2P-Nuboorpupzxwzck CPT-4: 87555 Unknown X3F-Yylaekhoenmpuht CPT-4: 81714 Unknown S3C-Zwxhuxrbiytddhn CPT-4: 54453 Unknown F0F-Ldnuvjtqwezjtqo CPT-4: 43857 Unknown I0L-Jehiwhduilboios CPT-4: 95304 Unknown Gynecology Referral SNOMED CT: [id number] CPT-4: R14 Unknown Reason For Visit No Reason For Visit data Plan of Care Planned Activity Notes Codes Status Date Referral: Pending Gynecology Referral Information Referral Processed Referral: Pending Pulmonolog y Referral Information Referral Processed Referral: Pending Psychiatry Referral Information Referral Initiated Referral: Pending Respirator y Services Referral Information Referral Initiated Referral: Pending Ophthalmol ogy Referral Information Referral Initiated Referral: [facility] WPtel: [address] [place] [address] [employer] placed a call out to the patient to notify her that it has been recommended that she be seen by a urologist. Patient agreed to be seen, does not have a provider of choice and no transportation issues. [employer] faxed referral and clinical notes to [facility] in [place], [place] near the patient's home. Patient to [...] prefers a provider in the [facility]. [employer] placed a call out to everyone listed in the area and the only location that was able to accept the patient's insurance was [place] [address] [place] [address] and spoke with Maylin. Maylin asked that the patient's referral, face sheet and visit notes be faxed to . [employer] faxed over requested documents. Patient appointment confirmation letter generated and mailed to her home address. Patient to call to schedule an appointment. Processed Referral: [facility] WPtel: [phone] [id number] Patient notified that it has been advised that she be seen by Neurology. Patient agreed to be seen and prefers to be seen by a provider in the [place], [place] area. Patient denies any concerns with transportation, and prefers to schedule her own appointment. [employer] placed a call out to [facility] and spoke with Neeraj [...]
--- OUTSIDE RECORDS SUMMARY | 2023-12-07 02:22 | XMS_ITS | CCD ---
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 Unknown Has never used illegal drugs 05/31/2018 DNR Order/ Advanced Directive Unknown Full Code 05/31/2018 Allergies, Adverse Reactions, Alerts Substance Reaction Codes Entered Date Inactivated Date Status OxyContin itch, RxNorm: 841267 01/13/2021 No Inactive Da te Active *No [...] ICD-9: 250.60 11/28/2019 Active Hypertensive heart disease ICD-10: I11.9 ICD-9: [...] ICD-10 : S61.202A ICD-9: 883.0 2022 Inactive Adult BMI 50.0-59.9 [...] ICD-10: E78. 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 nursing home (current) use of non-steroidal anti-inflammatories [...] ICD-10: R51 ICD-9: 784.0 10/03/2018 Inactive Other rat 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 (current) dr sharma therapy ICD-10: Z79.899 ICD-9: V58.69 04/25/2019 Inactive Type 2 diabetes mellitus wit hout complications ICD-10: E11.9 ICD-9: 250.00 10/03/2018 Inactive Wheezing ICD-10: R06.2 ICD-9: 786.07 08/08/2018 Inactive Abnormal urine finding ICD-10: R82.90 ICD-9: 791.9 09/24/2020 Resolved Abrasion of toe ICD-10: S90.416A ICD-9: 917.0 02/14/2020 Resolved [place] [facility] ICD-10: H10.029 ICD-9: 372.03 12/29/2019 Resolved [...] (4 mg/3 mL) subcutaneous pen injector RxNorm: 1736051 USE 1 UNIT DOSE SUBCUTANEOUSLY ON TUE OF EACH WEEK 023 2022 Inactive omeprazole 40 mg capsule,delayed release RxNorm: 903935 Take 1 Capsule(s) Oral every night at bedtime 023 2022 Inactive gabapentin 300 mg capsule RxNorm: 213323 Take 1 Capsule(s) Oral three times a day 023 2022 Inactive montelukast 10 mg tablet RxNorm: 871938 Take 1 Tablet(s) Oral every day 023 2022 Inactive omeprazole 20 mg capsule,delayed release RxNorm: 652391 Take 1 Capsule(s) Oral every evening 022 2022 Inactive Alcohol Prep Pads RxNorm: 704693 USE EACH MORNING 2021 Inactive E11.42 clotrimazole 1 % topical cream RxNorm: 476214 Apply 1 Application Topical two times a day as needed apply to affected area(s) twice daily until healed 2021 Inactive Victoza 2-Sebastián 0.6 mg/0.1 mL (18 mg/3 mL) subcutaneous pen injector RxNorm: 192255 Inject 0.6-1.8 Milligram(s) Subcutaneous once a week Inject 0.6mg/0.1ml week one, 1.2mg/0.2ml week two, 1.8/0.3ml weekly thereafter 022 2021 Inactive ibuprofen 800 mg tablet RxNorm: 527418 Take 1 Tablet(s) Oral Q8H as needed for pain take with food No Stop Date Active Ozempic 1 mg/dose (4 mg/3 mL) subcutaneous pen injector RxNorm: 6347264 Take 1 Unit Dose Subcutaneous QWeek Tuesday 022 2021 Inactive lisinopril 2.5 mg tablet RxNorm: 656298 Take 1 Tablet(s) Oral every day 022 2021 Inactive lisinopril 2.5 mg tablet RxNorm: 988090 Take 1 Tablet(s) Oral every day 022 2022 Inactive hydrochlorothiazide 25 mg tablet RxNorm: 623293 Take 1 Tablet(s) Oral every day 022 2021 Inactive Ozempic 1 mg/dose (4 mg/3 mL) subcutaneous pen injector RxNorm: 8293355 Take 1 Unit Dose Subcutaneous QWeek 022 2021 Inactive famotidine 20 mg tablet RxNorm: 474718 Take 1 Tablet(s) Oral every morning 022 2021 Inactive levothyroxine 50 mcg tablet RxNorm: 881737 Take 1 Tablet(s) Oral every day 022 2021 Inactive atorvastatin 20 mg tablet RxNorm: 327933 Take 1 Tablet(s) Oral every night at bedtime 2021 Inactive Cleocin T 1 % lotion RxNorm: 595008 Take 2 Gram(s) Topical every day 022 2021 Inactive Cleocin T 1 % lotion RxNorm: 949843 Take 2 Gram(s) Topical every day 022 2021 Inactive Ozempic 1 mg/dose (4 mg/3 mL) subcutaneous pen injector RxNorm: 0764857 Take 1 Unit Dose Subcutaneous QWeek 022 2021 Inactive Ozempic 0.25 mg or 0.5 mg (2 mg/1.5 mL) subcutaneous pen injector RxNorm: 5280329 INJECT 0.5 MGS SUBCUTANEOUSLY EVERY WEEK 022 2021 Inactive omeprazole 20 mg capsule,delayed release RxNorm: 511465 Take 1 Capsule(s) Oral every evening 2021 Inactive levothyroxine 50 mcg tablet RxNorm: 982193 Take 1 Tablet(s) Oral every day 022 2021 Inactive atorvastatin 20 mg tablet RxNorm: 055899 Take 1 Tablet(s) Oral every night at bedtime 2021 Inactive This refill negates all other refills of this medication lisinopril 2.5 mg tablet RxNorm: 284937 Take 1 Tablet(s) Oral every day 022 2021 Inactive gabapentin 300 mg capsule RxNorm: 673281 Take 1 Capsule(s) Oral three times a day 022 2021 Inactive montelukast 10 mg tablet RxNorm: 923879 Take 1 Tablet(s) Oral every day 022 2021 Inactive Myrbetriq 50 mg tablet,extended release RxNorm: 9440295 1 Tablet(s) Oral every day No Stop Date Active cholecalciferol (vitamin D3) 50 mcg (2,000 unit) tablet RxNorm: 548673 Take 1 Tablet(s) Oral every day 2022 Inactive Ozempic 0.25 mg or 0.5 mg (2 mg/1.5 mL) subcutaneous pen injector RxNorm: 8347663 inject 0.5 milligrams subcutaneously every week 2021 Inactive Ozempic 0.25 mg or 0.5 mg (2 mg/1.5 mL) subcutaneous pen injector RxNorm: 8386452 Take 0.5 Capsule(s) Injection once a week 2021 Inactive omeprazole 20 mg capsule,delayed release RxNorm: 029791 Take 1 Capsule(s) Oral every evening 2020 Inactive Ozempic 0.25 mg or 0.5 mg (2 mg/1.5 mL) subcutaneous pen injector RxNorm: 7892921 Take 0.25 Milligram(s) Subcutaneous once a week 2021 Inactive Easy Touch Alcohol Prep Pads RxNorm: 248960 USE DIRECTED EACH MORNING 2021 Inactive Probiotic 10 billion cell capsule RxNorm: 1854451 Take 1 Capsule(s) Oral every day 2021 Inactive levothyroxine 50 mcg tablet RxNorm: 712003 Take 1 Tablet(s) Oral every day 2020 Inactive Acid Enterprise Architect Manager (famotidine) 20 mg tablet RxNorm: 691375 Take 1 Tablet(s) Oral every morning 2020 Inactive Heartburn Relief (famotidine) 10 mg tablet RxNorm: 582817 Take 1 Tablet(s) Oral QAM 2020 Inactive levothyroxine 50 mcg tablet RxNorm: 232259 Take 1 Tablet(s) Oral QD 2020 Inactive Singulair 10 mg tablet RxNorm: 868346 TAKE (1) TABLET BY MOUTH DAILY 021 2020 Inactive metformin 1,000 mg tablet RxNorm: 485748 1 Tablet(s) Oral two times a day 021 2021 Inactive lisinopril 2.5 mg tablet RxNorm: 547511 Take 1 Tablet(s) Oral every day 021 2020 Inactive hydrochlorothiazide 25 mg tablet RxNorm: 027779 Take 1 Tablet(s) Oral every day 021 2020 Inactive ondansetron 4 mg disintegrating tablet RxNorm: 762122 1 Tablet(s) Oral two times a day 021 2020 Inactive Sudafed 12 Hour 120 mg tablet,extended release RxNorm: 0662762 TAKE 1 TABLET BY MOUTH EVERY 12 HOURS NEEDED 2021 Inactive Heartburn Relief (famotidine) 10 mg tablet RxNorm: 841853 Take 1 Tablet(s) Oral every morning 021 2020 Inactive omeprazole 20 mg capsule,delayed release RxNorm: 079850 1 Capsule(s) Oral every evening 021 2020 Inactive sertraline 100 mg tablet RxNorm: 725184 2 Tablet(s) Oral every day 021 2020 Inactive levothyroxine 50 mcg tablet RxNorm: 686372 TAKE (1) TABLET BY MOUTH DAILY 021 2020 Inactive metformin 500 mg tablet RxNorm: 059318 1 Tablet(s) Oral two times a day take with 500mg to equal 1000mg 021 2020 Inactive gabapentin 300 mg capsule RxNorm: 229741 TAKE 1 CAPSULE BY MOUTH THREE TIMES A DAY 021 2020 Inactive lisinopril 2.5 mg tablet RxNorm: 009406 TAKE 1 TABLET BY MOUTH DAILY 021 2020 Inactive gabapentin 300 mg capsule RxNorm: 303307 TAKE 1 CAPSULE BY MOUTH THREE TIMES A DAY 021 2020 Inactive Singulair 10 mg tablet RxNorm: 067811 TAKE (1) TABLET BY MOUTH DAILY 021 2020 Inactive metformin 1,000 mg tablet RxNorm: 743256 1 Tablet(s) Oral two times a day 021 2020 Inactive atorvastatin 40 mg tablet RxNorm: 520209 1 Tablet(s) Oral every day 2020 Inactive omeprazole 20 mg capsule,delayed release RxNorm: 684595 1 Capsule(s) Oral every evening 2020 Inactive famotidine 10 mg tablet RxNorm: 765273 1 Tablet(s) Oral every morning 021 2020 Inactive Alcohol Prep Pads RxNorm: 485490 USE EACH MORNING 021 2020 Inactive omeprazole 20 mg capsule,delayed release RxNorm: 395892 1 Capsule(s) Oral two times a day 2021 Inactive omeprazole 20 mg capsule,delayed release RxNorm: 586319 TAKE 1 CAPSULE BY MOUTH EVERY DAY 2021 Inactive Macrobid 100 mg capsule RxNorm: 910575 1 Capsule(s) Oral every 12 hours with food 2020 Inactive omeprazole 20 mg capsule,delayed release RxNorm: 584603 1 Capsule(s) Oral two times a day 2021 Inactive metformin 1,000 mg tablet RxNorm: 746266 1 Tablet(s) Oral two times a day 2020 Inactive start on September 11, 2020 metformin 500 mg tablet RxNorm: 288462 1 Tablet(s) Oral two times a day take with 500mg to equal 1000mg 2019 Inactive gabapentin 300 mg capsule RxNorm: 917142 TAKE 1 CAPSULE BY MOUTH THREE TIMES DAILY 2020 Inactive cetirizine 10 mg tablet RxNorm: 3928640 TAKE (1) TABLET BY MOUTH DAILY 2020 Inactive metformin 500 mg tablet RxNorm: 240577 1 Tablet(s) Oral two times a day 020 2019 Inactive loperamide 2 mg tablet RxNorm: 896479 1 Tablet(s) Oral as needed take one tablet after each loose stool, maximum of 8 tablets in 24 hours 2021 Inactive Sudafed 12 Hour 120 mg tablet,extended release RxNorm: 6851234 TAKE 1 TABLET BY MOUTH EVERY 12 HOURS NEEDED 020 2019 Inactive hydrochlorothiazide 25 mg tablet RxNorm: 470362 TAKE (1) TABLET BY MOUTH EVERY DAY 020 2019 Inactive omeprazole 20 mg capsule,delayed release RxNorm: 586407 TAKE 1 CAPSULE BY MOUTH EVERY DAY 020 2020 Inactive metformin 500 mg tablet RxNorm: 497172 1 Tablet(s) Oral every day 020 2019 Inactive True Metrix Glucose Test Strip RxNorm: 1 Test Strips Miscellaneous two times a day as needed No Stop Date Active metformin 500 mg tablet RxNorm: 604949 1 Tablet(s) Oral every day 020 2019 Inactive diclofenac sodium 75 mg tablet,delayed release RxNorm: 392135 1 Tablet(s) PO BID 2021 Inactive This refill negates all other refills of this medication Sudafed 12 Hour 120 mg tablet,extended release RxNorm: 8814046 TAKE 1 TABLET BY MOUTH EVERY 12 HOURS NEEDED 020 2019 Inactive True Metrix Glucose Test Strip RxNorm: 1 Test Strips Miscellaneous every morning 020 2019 Inactive 100/container True Metrix Glucose Test Strip RxNorm: 1 Test Strips Miscellaneous QA 020 2019 Inactive 100/container loperamide 2 mg tablet RxNorm: 400364 1 Tablet(s) Oral as needed take one tablet after each loose stool, maximum of 8 tablets in 24 hours 020 2019 Inactive cetirizine 10 mg tablet RxNorm: 4320312 1 Tablet(s) PO daily 2019 Inactive loperamide 2 mg tablet RxNorm: 873417 1 Tablet(s) Oral as needed take one tablet after each loose stool, maximum of 8 tablets in 24 hours 2019 Inactive quetiapine 100 mg tablet RxNorm: 132589 1 Tablet(s) Oral every night at bedtime 2019 Inactive levothyroxine 50 mcg tablet RxNorm: 331533 1 Tablet(s) PO daily 2020 Inactive gabapentin 300 mg capsule RxNorm: 229079 1 Capsule(s) PO TID 2019 Inactive levothyroxine 50 mcg tablet RxNorm: 930752 1 Tablet(s) PO daily 2019 Inactive lisinopril 2.5 mg tablet RxNorm: 144026 1 Tablet(s) PO daily 2020 Inactive gabapentin 300 mg capsule RxNorm: 749772 1 Capsule(s) PO TID 2019 Inactive cetirizine 10 mg tablet RxNorm: 2828868 1 Tablet(s) PO daily 2019 Inactive Singulair 10 mg tablet RxNorm: 763230 1 Tablet(s) PO daily 2020 Inactive gentamicin 0.3 % eye drops RxNorm: 300771 1 Drop(s) ophthalmic (eye) four times a day 2019 Inactive gentamicin 0.3 % eye drops RxNorm: 750447 1 Drop(s) ophthalmic (eye) four times a day 2019 Inactive gentamicin 0.3 % eye drops RxNorm: 737586 1 Drop(s) ophthalmic (eye) four times a day 2019 Inactive hydrochlorothiazide 25 mg tablet RxNorm: 350476 1 Tablet(s) Oral every day 2019 Inactive Sudafed 12 Hour 120 mg tablet,extended release RxNorm: 3254261 TAKE (1) TABLET BY MOUTH EVERY 12 HOURS NEEDED 2019 Inactive loperamide 2 mg tablet RxNorm: 538269 1 Tablet(s) Oral as needed take one tablet after each loose stool, maximum of 8 tablets in 24 hours 020 2019 Inactive loperamide 2 mg tablet RxNorm: 991283 1 Tablet(s) Oral as needed take one tablet after each loose stool, maximum of 8 tablets in 24 hours 020 2019 Inactive atorvastatin 40 mg tablet RxNorm: 355519 1 Tablet(s) Oral every day 2020 Inactive quetiapine 100 mg tablet RxNorm: 809144 1 Tablet(s) Oral every night at bedtime 2019 Inactive sertraline 100 mg tablet RxNorm: 867459 1 Tablet(s) Oral 2019 Inactive omeprazole 20 mg capsule,delayed release RxNorm: 300492 1 Capsule(s) Oral every day 2019 Inactive amoxicillin 250 mg capsule RxNorm: 281606 1 Capsule(s) Oral three times a day 2019 Inactive multivitamin with iron-mineral tablet RxNorm: 1 Tablet(s) Oral every day 2021 Inactive cetirizine 10 mg tablet RxNorm: 2667684 1 Tablet(s) PO daily 2019 Inactive This refill negates all other refills of this medication. Please do not auto refill Singulair 10 mg tablet RxNorm: 428036 1 Tablet(s) PO daily 2019 Inactive This refill negates all other refills of this medication gabapentin 300 mg capsule RxNorm: 470139 1 Capsule(s) PO TID 2019 Inactive lisinopril 2.5 mg tablet RxNorm: 299935 1 Tablet(s) PO daily 020 2019 Inactive levothyroxine 50 mcg tablet RxNorm: 649297 1 Tablet(s) PO daily 2019 Inactive This refill negates all other refills of this medication hydrochlorothiazide 25 mg tablet RxNorm: 470069 1 Tablet(s) Oral every day 2019 Inactive fenugreek seed extract 500 mg capsule RxNorm: 1 Capsule(s) Oral three times a day 2021 Inactive Alcohol Prep Pads RxNorm: 738232 1 Patch TOP QAM 2020 Inactive loperamide 2 mg tablet RxNorm: 947942 1 Tablet(s) Oral as needed take one [...] 2019 Inactive hydrochlorothiazide 25 mg tablet RxNorm: 851406 1 Tablet(s) Oral every day 019 2019 Inactive Sudafed 12 Hour 120 mg tablet,extended release RxNorm: 6428509 1 Tablet(s) Oral every 12 hours as needed 019 2018 Inactive omeprazole 20 mg capsule,delayed release RxNorm: 563536 1 Capsule(s) Oral every day 019 2019 Inactive Sudafed 12 Hour 120 mg tablet,extended release RxNorm: 4637118 1 Tablet(s) Oral every 12 hours as needed 019 2018 Inactive pantoprazole 40 mg tablet,delayed release RxNorm: 134475 1 Tablet(s) Oral every day 2018 Inactive discontinue any other H2Blkr. and PPI albuterol sulfate 2.5 mg/3 mL (0.083 %) solution for nebulization RxNorm: 975935 1 Vial Inhalation every four hours as needed as needed for dyspnea 2019 Inactive 60/box. This refill negates all other refills of this medication. Please do not fill early. Please do not auto refill. Symbicort 160 mcg-4.5 mcg/actuation HFA aerosol inhaler RxNorm: 4577131 2 Puff(s) INH BID No Stop Date Active Alcohol Prep Pads RxNorm: 986053 1 Patch TOP QAM 019 2019 Inactive Ventolin HFA 90 mcg/actuation aerosol inhaler RxNorm: 029842 2 Puff(s) INH QID 019 2019 Inactive Please do not fill early. Please do not auto refill. This refill negates all other refills of this medication True Metrix Glucose Test Strip RxNorm: 1 Test Strips Miscellaneous QA 019 2019 Inactive 100/container atorvastatin 40 mg tablet RxNorm: 577461 1 Tablet(s) Oral every day 019 2019 Inactive buspirone 7.5 mg tablet RxNorm: 642302 1 Tablet(s) PO BID 019 2020 Inactive This refill negates all other refills of this medication hydrochlorothiazide 12.5 mg tablet RxNorm: 554342 1 Tablet(s) PO QAM 019 2019 Inactive levmetamfetamine 50 mg nasal inhaler RxNorm: 1 Unit(s) NASAL Q3-4H Do not use more than every 3 hours or 8 times/24hours 019 2021 Inactive Please do not auto refill. This refill negates all other refills of this medication Ventolin HFA 90 mcg/actuation aerosol inhaler RxNorm: 412098 2 Puff(s) INH QID 019 2018 Inactive Please do not fill early. Please do not auto refill. This refill negates all other refills of this medication Singulair 10 mg tablet RxNorm: 461035 1 Tablet(s) PO daily 019 2019 Inactive This refill negates all other refills of this medication cetirizine 10 mg tablet RxNorm: 2733939 1 Tablet(s) PO daily 019 2019 Inactive This refill negates all other refills of this medication. Please do not auto refill levothyroxine 50 mcg tablet RxNorm: 890279 1 Tablet(s) PO daily 019 2019 Inactive This refill negates all other refills of this medication diclofenac sodium 75 mg tablet,delayed release RxNorm: 684933 1 Tablet(s) PO BID 019 2019 Inactive This refill negates all other refills of this medication ranitidine 150 mg tablet RxNorm: 990835 1 Tablet(s) PO BID 019 2018 Inactive This refill negates all other refills of this medication Calcium 600-D3 Plus (mag-zinc) 600 mg calcium-800 unit-50 mg tablet RxNorm: 1 Tablet(s) PO daily take an additonal tablet for itching. 2018 Inactive This refill negates all other refills of this medication albuterol sulfate 2.5 mg/3 mL (0.083 %) solution for nebulization RxNorm: 989410 1 Vial INH QID 2018 Inactive 60/box. This refill negates all other refills of this medication. Please do not fill early. Please do not auto refill. lisinopril 2.5 mg tablet RxNorm: 659779 1 Tablet(s) PO daily 019 2019 Inactive gabapentin 300 mg capsule RxNorm: 524921 1 Capsule(s) PO TID 019 2019 Inactive atorvastatin 20 mg tablet RxNorm: 384116 1 Tablet(s) PO QHS 019 2018 Inactive This refill negates all other refills of this medication TRUEplus Lancets 30 gauge RxNorm: 1 Lancets Miscellaneous QAM 019 2018 Inactive 100/box gabapentin 300 mg capsule RxNorm: 638703 1 Capsule(s) PO TID 2018 Inactive Flmarksaranbree Complete (iron) 18 mg iron chewable tablet RxNorm: 1 Tablet(s) PO daily 019 2021 Inactive This refill negates all other refills of this medication gabapentin 300 mg capsule RxNorm: 430970 1 Capsule(s) PO TID as needed 2018 Inactive True Metrix Glucose Test Strip RxNorm: 1 Test Strips Miscellaneous QAM 2018 Inactive 100/container Alcohol Prep Pads RxNorm: 489456 1 Patch TOP QAM 2018 Inactive TRUEplus Lancets 30 gauge RxNorm: 1 Lancets Miscellaneous QAM 2018 Inactive 100/box lisinopril 2.5 mg tablet RxNorm: 814872 1 Tablet(s) PO daily 2018 Inactive ranitidine 150 mg tablet RxNorm: 606874 1 Tablet(s) PO BID 2018 Inactive This refill negates all other refills of this medication albuterol sulfate 2.5 mg/3 mL (0.083 %) solution for nebulization RxNorm: 294461 1 Vial INH QID 2018 Inactive 60/box. [...] this medication gabapentin 300 mg capsule RxNorm: 287502 1 Capsule(s) PO TID as needed 019 2018 Inactive atorvastatin 20 mg tablet RxNorm: 791058 1 Tablet(s) PO QHS 019 2018 Inactive This refill negates all other refills of this medication trazodone 50 mg tablet RxNorm: 102414 1 Tablet(s) PO QHS 019 2018 Inactive This refill negates all other refills of this medication Ventolin HFA 90 mcg/actuation aerosol inhaler RxNorm: 954455 2 Puff(s) INH QID 019 2018 Inactive Please do not fill early. Please do not auto refill. This refill negates all other refills of this medication Calcium 600-D3 Plus 600 mg calcium-800 unit-50 mg tablet RxNorm: 1 Tablet(s) PO daily take an additonal tablet for itching. 019 2018 Inactive This refill negates all other refills of this medication Singulair 10 mg tablet RxNorm: 115546 1 Tablet(s) PO daily 019 2018 Inactive This refill negates all other refills of this medication buspirone 7.5 mg tablet RxNorm: 460800 1 Tablet(s) PO BID 019 2018 Inactive This refill negates all other refills of this medication diclofenac sodium 75 mg tablet,delayed release RxNorm: 507536 1 Tablet(s) PO BID 019 2018 Inactive This refill negates all other refills of this medication hydrochlorothiazide 12.5 mg tablet RxNorm: 078839 1 Tablet(s) PO QAM 019 2018 Inactive metoprolol succinate ER 50 mg tablet,extended release 24 hr RxNorm: 234185 1 Tablet(s) PO daily 019 2018 Inactive This refill negates all other refills of this medication levothyroxine 50 mcg tablet RxNorm: 853184 1 Tablet(s) PO daily 019 2018 Inactive This refill negates all other refills of this medication cetirizine 10 mg tablet RxNorm: 3563091 1 Tablet(s) PO daily 019 2018 Inactive This refill negates all other refills of this medication. Please do not auto refill Flintstones Complete (iron) 18 mg iron chewable tablet RxNorm: 1 Tablet(s) PO daily 019 2018 Inactive This refill negates all other refills of this medication buspirone 7.5 mg tablet RxNorm: 090376 1 Tablet(s) PO BID 019 2018 Inactive cetirizine 10 mg tablet RxNorm: 1158801 1 Tablet(s) PO daily 2018 Inactive Guaiasorb DM 10 mg-100 mg/5 mL oral liquid RxNorm: 976463 10 Milliliter(s) PO As needed every 4 hr 2018 Inactive Vicks Vaporub 4.7 %-1.2 %-2.6 % topical ointment RxNorm: 0966402 1 Application TOP TID 2018 Inactive levmetamfetamine 50 mg nasal inhaler RxNorm: 1 Unit(s) NASAL Q3-4H 2017 Inactive sertraline 50 mg tablet RxNorm: 653087 1 Tablet(s) PO daily 2018 Inactive Please note dose trazodone 50 mg tablet RxNorm: 364375 1 Tablet(s) PO QHS 018 2018 Inactive sertraline 50 mg tablet RxNorm: 007189 1 Tablet(s) PO daily 2017 Inactive amoxicillin 500 mg tablet RxNorm: 037644 1 Tablet(s) PO Q12H 2017 Inactive albuterol sulfate 2.5 mg/3 mL (0.083 %) solution for nebulization RxNorm: 097529 1 Vial INH QID 2018 Inactive 60/box. Please do not fill early. Please do not auto refill. Prozac 10 mg capsule RxNorm: 732085 1 Capsule(s) PO daily 018 2017 Inactive buspirone 7.5 mg tablet RxNorm: 000157 1 Tablet(s) PO BID 018 2018 Inactive gabapentin 300 mg capsule RxNorm: 649086 1 Capsule(s) PO TID as needed 018 2018 Inactive hydrochlorothiazide 12.5 mg tablet RxNorm: 092344 1 Tablet(s) PO QAM 018 2018 Inactive ranitidine 150 mg tablet RxNorm: 311291 1 Tablet(s) PO BID 018 2018 Inactive Macrobid 100 mg capsule RxNorm: 526653 1 Capsule(s) PO Q12H 018 2017 Inactive Singulair 10 mg tablet RxNorm: 288654 1 Tablet(s) PO daily 018 2018 Inactive Ventolin HFA 90 mcg/actuation aerosol inhaler RxNorm: 8387682 2 Puff(s) INH QID 018 2018 Inactive Singulair 10 mg tablet RxNorm: 624375 1 Tablet(s) PO daily 018 2017 Inactive buspirone 7.5 mg tablet RxNorm: 633034 1 Tablet(s) PO BID 018 2017 Inactive Prozac 10 mg capsule RxNorm: 246125 1 Capsule(s) PO daily 018 2017 Inactive diclofenac sodium 75 mg tablet,delayed release RxNorm: 218963 1 Tablet(s) PO BID 018 2017 Inactive lisinopril 2.5 mg tablet RxNorm: 903343 1 Tablet(s) PO daily 018 2017 Inactive Neilmed Pediatric Sinus Rinse Refill packet RxNorm: 1 Unit Dose NASAL PRN 018 2021 Inactive metoprolol succinate ER 50 mg tablet,extended release 24 hr RxNorm: 912360 1 Tablet(s) PO daily 018 2017 Inactive levothyroxine 50 mcg tablet RxNorm: 182905 1 Tablet(s) PO daily 018 2017 Inactive TRUEplus Lancets 30 gauge RxNorm: 1 Lancets Miscellaneous QAM 018 2017 Inactive 100/box Ventolin HFA 90 mcg/actuation aerosol inhaler RxNorm: 254414 2 Puff(s) INH QID 018 2017 Inactive Aleve 220 mg capsule RxNorm: 8820930 1 Capsule(s) PO BID 018 2018 Inactive ranitidine 150 mg tablet RxNorm: 211412 1 Tablet(s) PO BID 018 2017 Inactive gabapentin 300 mg capsule RxNorm: 237664 1 Capsule(s) PO TID as needed 018 2017 Inactive atorvastatin 20 mg tablet RxNorm: 211309 1 Tablet(s) PO QHS 018 2017 Inactive True Metrix Glucose Test Strip RxNorm: 1 Test Strips Miscellaneous QAM 018 2017 Inactive 50/container Calcium 600-D3 Plus 600 mg calcium-800 unit-50 mg tablet RxNorm: 1 Tablet(s) PO daily take an additonal tablet for itching. 018 2017 Inactive hydrochlorothiazide 12.5 mg tablet RxNorm: 846752 1 Tablet(s) PO QAM 018 2017 Inactive Flintstones Complete (iron) 18 mg iron chewable tablet RxNorm: 1 Tablet(s) PO daily 018 2017 Inactive True Metrix Glucose Meter RxNorm: miscellaneous 019 2018 Inactive sertraline 50 mg tablet RxNorm: 960556 1 Tablet(s) PO daily 020 2019 Inactive loperamide 2 mg tablet RxNorm: 975956 oral 019 2018 Inactive d-mannose oral powder RxNorm: PO 018 2021 Inactive Symbicort 160 mcg-4.5 mcg/actuation HFA aerosol inhaler RxNorm: 6141241 2 Puff(s) INH BID 019 2018 Inactive Medication Administered No Medication Administered data Procedures Procedure Codes Date Patient Health Questionnaire CPT-4: DPHQ Pain Screening CPT-4: PAS 2022 Tobacco Assessment/Screening CPT-4: TCA Hypertension CPT-4: HTN 08/17/2022 Bud Fnay Assessment CPT-4: DSWA 04/02 Patient Health Questionnaire [...] CPT-4: VACP Fall Risk Assessment SNOMED CT: 76351145 4 CPT-4: DFRA 01/13/2021 Bud Fany Assessment CPT-4: DSWA 12/01 Urinalysis, dip stick CPT-4: 27852 09/24/2020 Patient Health Questionnaire CPT-4: DPHQ Electrocardiogram CPT-4: 78872 05/14/2020 Tobacco Assessment/Screening CPT-4: TCA Fall Risk Assessment SNOMED CT: 58901102 4 CPT-4: DFRA 01/01/2020 Functional Assessment CPT-4: DFA 01/01/2020 Bud Fany Assessment CPT-4: DSWA 11/04 Patient Health Questionnaire CPT-4: DPHQ Bud Fany Assessment CPT-4: DSWA 10/03 Hypertension CPT-4: HTN 10/17/2019 Fall Risk Assessment SNOMED CT: 78179518 4 CPT-4: DFRA 09/19/2019 Functional Assessment CPT-4: DFA 09/19/2019 Urinalysis, dip stick CPT-4: 42009 06/21/2019 Tobacco Assessment/Screening CPT-4: TCA Patient Health Questionnaire CPT-4: DPHQ AHA/REBECCA Classification Assessment CPT-4: DAHA 04/25/2019 Controlled Substance Report CPT-4: CTRSU 04/03 Urinalysis, dip stick CPT-4: 36107 03/28/2019 Urinalysis, dip stick CPT-4: 87299 03/28/2019 E4O-Hcotxxiuonjrvpb CPT-4: 41589 Unknown E1K-Mpavtwppvichbfm CPT-4: 40435 Unknown H7Z-Hssyupxvpzcsmce CPT-4: 54844 Unknown P2N-Igaydowkybcdfdl CPT-4: 76929 Unknown V3R-Mknzthzaxpbyyrg CPT-4: 11052 Unknown O7V-Zfcysmkdemvwlmc CPT-4: 22259 Unknown N2I-Jbxsjjmonhdoaoe CPT-4: 26924 Unknown G8V-Dlietxpxapvvdfi CPT-4: 66821 Unknown F6G-Anilwjppodufvyz CPT-4: 80508 Unknown P9K-Amvpaigygygkwyf CPT-4: 13548 Unknown D7S-Cwedulfembmxmax CPT-4: 39345 Unknown Gynecology Referral SNOMED CT: 908918822 CPT-4: R14 Unknown Reason For Visit No Reason For Visit data Plan of Care Planned Activity Notes Codes Status Date Patient Education: Patient Medication Summary Completed 12/23/2022 Appointment: Anna Culver WPtel: [address] [place] [address] E410 11/23/2022 Appointment: Anna Culver WPtel: [address] [place] [address] E410 2022 Appointment: Anna Culver WPtel: [address] [place] [address] E410 08/17/2022 Appointment: Anna Culver WPtel: [address] [place] [address] E410 06/23/2022 Appointment: Chivo Bishop WPtel: [address] [place] [address] E410 04/19/2022 Appointment: Chivo Bishop WPtel: [id number] [place] [address] E410 02/11/2022 Appointment: Mikey Nair WPtel: [address] [facility] 202b [id number] [place] E410 12/03/2021 Appointment: Chivo Bishop WPtel: [address] [place] [address] E410 11/02/2021 Appointment: Chivo Bishop WPtel: [address] [place] [address] E410 10/07/2021 Appointment: Chivo Bishop WPtel: [address] [place] [address] ETV 09/10/2021 Appointment: Chivo Bishop WPtel: [address] [place] [address] ETV 08/13/2021 Appointment: Chivo Bishop WPtel: [address] [place] [address] ETV 07/06/2021 Appointment: Chivo Bishop WPtel: [address] [place] [address] PHTV 06/10/2021 Appointment: Anna Culver WPtel: [address] [place] [address] ETV 06/02/2021 Appointment: Chivo Bishop WPtel: [address] [place] [address] ETV 05/20/2021 Appointment: Anna Culver WPtel: [address] [place] [address] ETV 04/28/2021 Appointment: Chivo Bishop WPtel: [address] [place] [address] ETV 04/15/2021 Appointment: Anna Culver WPtel: [address] [place] [address] E410 04/01/2021 Appointment: Anna Culver WPtel: [address] [place] [address] ETV 03/24/2021 Appointment: Anna Culver WPtel: [address] [place] [address] ETV 03/13/2021 Appointment: Anna Culver WPtel: [address] [place] [address] E410 02/11/2021 Appointment: Chivo Bishop WPtel: [address] [place] [address] E410 01/29/2021 Appointment: Anna Culver WPtel: [address] [place] [address] ETV 01/13/2021 Appointment: Anna Culver WPtel: [address] [place] [address] E410 12/17/2020 Appointment: Chivo Bishop WPtel: [address] [place] [address] ETV 11/28/2020 Appointment: Anna Culver WPtel: [address] [place] [address] ETV 11/24/2020 Appointment: Anna Culver WPtel: [address] [place] [address] E410 10/29/2020 Appointment: Anna Culver WPtel: [address] [place] [address] E410 09/24/2020 Appointment: Anna Culver WPtel: [address] [place] [address] ETV 08/26/2020 Appointment: Anna Culver WPtel: [address] ETV 08/19/2020 Appointment: Anna Culver WPtel: [id number] [place] [address] ETV 07/22/2020 Appointment: Anna Culver WPtel: [address] [place] [address] ETV 07/08/2020 Appointment: Gianna Birmingham: [address] [facility] 100 [id number] [place] ECHO 07/02/2020 Appointment: Anna Culver WPtel: [address] [place] [address] E452 06/11/2020 Appointment: Anna Culver WPtel: [address] [place] [address] E452 05/14/2020 Appointment: Anna Culver WPtel: [address] [place] [address] E452 04/17/2020 Appointment: Anna Culver WPtel: [address] [place] [address] E452 03/21/2020 Appointment: Anna Culver WPtel: [address] [place] [address] E452 02/14/2020 Appointment: Anna Culver WPtel: [address] [place] [address] [place] E452 01/24/2020 Appointment: Anna Culver WPtel: [address] [place] [address] [place] E452 01/01/2020 Appointment: Anna Culver WPtel: [address] [place] [address] E452 11/28/2019 Appointment: Anna Culver WPtel: [address] [place] [address] E452 10/17/2019 Appointment: Anna Culver WPtel: [address] [place] [address] [place] [address] E452 09/19/2019 Appointment: Sudha Hernadez WPtel: [address] [place] [address] [id number] E452 07/04/2019 Appointment: Sudha Hernadez WPtel: [address] [place] [address] [id number] E452 06/21/2019 Appointment: Charlene Oropeza WPtel: [address] [place] [address] [id number] E452 05/24/2019 Appointment: Mallory Delgado E452 04/27/2019 Appointment: Charlene Oropeza WPtel: [address] [facility]452 04/25/2019 Appointment: Rasta Palafox WPtel: [address] [place] [address] [id number] E452 03/28/2019 Appointment: Rasta Palafox WPtel: [address] [facility] [id number] E452 02/14/2019 Appointment: Rasta Palafox WPtel: [address] [place] [address] [id number] E452 01/31/2019 Appointment: Rasta Palafox WPtel: [facility] [id number] E420 12/27/2018 Referral: Pending Gynecology Referral Information Referral Processed Referral: Pending Pulmonolog y Referral Information Referral Processed Referral: Pending Psychiatry Referral Information Referral Initiated Referral: Pending Respirator y Services Referral Information Referral Initiated Referral: Pending Ophthalmology Referral Information Referral Initiated Referral: [facility] WPtel: [address] [facility] [address] [id number] Director Teen Post placed a call out to the patient to notify her that it has been recommended that she be seen by a urologist. Patient agreed to be seen, does not have a provider of choice and no transportation issues. Director Teen Post faxed referral and clinical notes to [facility] in [place], [place] near the patient's home. Patient [...] seen and prefers a provider in the [place] or [place] area. Director Teen Post placed a call out to everyone listed in the area and the only location that was able to accept the patient's insurance was [address] [phone] and spoke with Maylin. Maylin asked that the patient's referral, face sheet and visit notes be faxed to . Director Teen Post faxed over requested documents. Patient appointment confirmation letter generated and mailed to her home address. Patient to call to schedule an appointment. Processed Referral: [facility] WPtel: [address] [facility] [address] [place], [place] [id number] Patient notified that it has been advised that she be seen by Neurology. Patient agreed to be seen and prefers to be seen by a provider in the [place], [place] area. Patient denies any concerns with transportation, and prefers to schedule her own appointment. Director Teen Post placed a call out to [facility] and spoke with Neeraj P: who confirmed that their office is able to accept new patients and the patient's insurance. After confirming the providers fax number, curriculum writer faxed over the patient's referral, and [...]
--- OUTSIDE RECORDS SUMMARY | 2023-12-07 02:22 | XMS_ITS | CCD ---
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 Microfilm Mounter Name Role Phone Palomo KING, Anna Primary Care Provider Unav ailable Unavailable Chronic Care Management Unavaila ble Summary Purpose DataExchange Insurance Providers Payer name Policy type / Coverage type Covered alliance party ID Effective Begin Date Effective End Date SUKI MAYO [id number] Unknown Unknown Family history Mother Diagnosis Age [...] Unknown Disability 05/31/[address]: 451297978 Has never s moked or chewed tobacco 05/31/[address]: 251217473 Never drinks alco hol 05/31/2018 Has the patient ever used illegal drugs? Unknown Has never used illegal drugs 05/31/2018 DNR Order/ Advanced Directive Unknown Full Code 05/31/2018 Allergies, Adverse Reactions, Alerts Substance Reaction Codes Entered Date Inactivated Date Status OxyContin itch, RxNorm: 812892 01/13/2021 No Inactive Da te Active *No known food allergies Unknown 09/06/2018 No I nactive Date Active Methylprednisolone hives RxNorm: 6902 09/06/2018 No Inac tive Date Active Problems Condition Codes Effective Dates Condition St atus GERD (gastroesophageal reflu x disease) ICD-10: K21.9 ICD-9: 530.81 09/07/2019 Active Hypertensive heart disease ICD-10: I11.9 ICD-9: [...] Hypertension ICD-10: I10 ICD-9: 401.9 12/03/2021 Active Asthma ICD-10: J45.909 ICD-9: 493.90 [...] ICD-10: E78. 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 ocean transportation intermediary (current) use of non-steroidal anti-inflammatories (NSAID) ICD-10: [...] ICD-10: R51 ICD-9: 784.0 10/03/2018 Inactive Other continuous churn buttermaker (current) dr sharma therapy ICD-10: Z79.899 ICD-9: V58.69 04/25/2019 Inactive Type 2 diabetes mellitus wit hout complications ICD-10: E11.9 ICD-9: 250.00 10/03/2018 Inactive Wheezing ICD-10: R06.2 ICD-9: 786.07 08/08/2018 Inactive Abnormal urine finding ICD-10: R82.90 ICD-9: 791.9 09/24/2020 Resolved Abrasion of toe ICD-10: S90.416A ICD-9: 917.0 02/14/2020 Resolved [place] eye ICD-10: H10.029 ICD-9: 372.03 12/29/2019 Resolved [...] (4 mg/3 mL) subcutaneous pen injector RxNorm: 0407915 USE 1 UNIT DOSE SUBCUTANEOUSLY ON TUE OF EACH WEEK 023 2022 Inactive omeprazole 40 mg capsule,delayed release RxNorm: 691944 Take 1 Capsule(s) Oral every night at bedtime 023 2022 Inactive gabapentin 300 mg capsule RxNorm: 125861 Take 1 Capsule(s) Oral three times a day 023 2022 Inactive montelukast 10 mg tablet RxNorm: 604720 Take 1 Tablet(s) Oral every day 023 2022 Inactive omeprazole 20 mg capsule,delayed release RxNorm: 813090 Take 1 Capsule(s) Oral every evening 2022 Inactive Alcohol Prep Pads RxNorm: 029375 USE EACH MORNING 2021 Inactive E11.42 clotrimazole 1 % topical cream RxNorm: 740195 Apply 1 Application Topical two times a day as needed apply to affected area(s) twice daily until healed 2021 Inactive Victoza 2-Sebastián 0.6 mg/0.1 mL (18 mg/3 mL) subcutaneous pen injector RxNorm: 330861 Inject 0.6-1.8 Milligram(s) Subcutaneous once a week Inject 0.6mg/0.1ml week one, 1.2mg/0.2ml week two, 1.8/0.3ml weekly thereafter 2021 Inactive ibuprofen 800 mg tablet RxNorm: 457556 Take 1 Tablet(s) Oral Q8H as needed for pain take with food No Stop Date Active Ozempic 1 mg/dose (4 mg/3 mL) subcutaneous pen injector RxNorm: 2333029 Take 1 Unit Dose Subcutaneous QWeek Tuesday2021 Inactive lisinopril 2.5 mg tablet RxNorm: 910187 Take 1 Tablet(s) Oral every day 2021 Inactive lisinopril 2.5 mg tablet RxNorm: 362665 Take 1 Tablet(s) Oral every day 022 2022 Inactive hydrochlorothiazide 25 mg tablet RxNorm: 776113 Take 1 Tablet(s) Oral every day 022 2021 Inactive Ozempic 1 mg/dose (4 mg/3 mL) subcutaneous pen injector RxNorm: 0751839 Take 1 Unit Dose Subcutaneous QWeek 2021 Inactive famotidine 20 mg tablet RxNorm: 849497 Take 1 Tablet(s) Oral every morning 2021 Inactive levothyroxine 50 mcg tablet RxNorm: 811885 Take 1 Tablet(s) Oral every day 29/ 2022 Inactive atorvastatin 20 mg tablet RxNorm: 311145 Take 1 Tablet(s) Oral every night at bedtime 022 2021 Inactive Cleocin T 1 % lotion RxNorm: 934008 Take 2 Gram(s) Topical every day 022 2021 Inactive Cleocin T 1 % lotion RxNorm: 114314 Take 2 Gram(s) Topical every day 022 2021 Inactive Ozempic 1 mg/dose (4 mg/3 mL) subcutaneous pen injector RxNorm: 3314743 Take 1 Unit Dose Subcutaneous QWeek 022 2021 Inactive Ozempic 0.25 mg or 0.5 mg (2 mg/1.5 mL) subcutaneous pen injector RxNorm: 7039184 INJECT 0.5 MGS SUBCUTANEOUSLY EVERY WEEK 022 2021 Inactive omeprazole 20 mg capsule,delayed release RxNorm: 852163 Take 1 Capsule(s) Oral every evening 2021 Inactive levothyroxine 50 mcg tablet RxNorm: 997188 Take 1 Tablet(s) Oral every day 022 2021 Inactive atorvastatin 20 mg tablet RxNorm: 224324 Take 1 Tablet(s) Oral every night at bedtime 2021 Inactive This refill negates all other refills of this medication lisinopril 2.5 mg tablet RxNorm: 666586 Take 1 Tablet(s) Oral every day 022 2021 Inactive gabapentin 300 mg capsule RxNorm: 082641 Take 1 Capsule(s) Oral three times a day 022 2021 Inactive montelukast 10 mg tablet RxNorm: 846563 Take 1 Tablet(s) Oral every day 022 2021 Inactive Myrbetriq 50 mg tablet,extended release RxNorm: 0764534 1 Tablet(s) Oral every day No Stop Date Active cholecalciferol (vitamin D3) 50 mcg (2,000 unit) tablet RxNorm: 979869 Take 1 Tablet(s) Oral every day 2022 Inactive Ozempic 0.25 mg or 0.5 mg (2 mg/1.5 mL) subcutaneous pen injector RxNorm: 7087416 inject 0.5 milligrams subcutaneously every week 2021 Inactive Ozempic 0.25 mg or 0.5 mg (2 mg/1.5 mL) subcutaneous pen injector RxNorm: 2725215 Take 0.5 Capsule(s) Injection once a week 2021 Inactive omeprazole 20 mg capsule,delayed release RxNorm: 292665 Take 1 Capsule(s) Oral every evening 2020 Inactive Ozempic 0.25 mg or 0.5 mg (2 mg/1.5 mL) subcutaneous pen injector RxNorm: 4905798 Take 0.25 Milligram(s) Subcutaneous once a week 2021 Inactive Easy Touch Alcohol Prep Pads RxNorm: 383584 USE DIRECTED EACH MORNING 2021 Inactive Probiotic 10 billion cell capsule RxNorm: 8511045 Take 1 Capsule(s) Oral every day 2021 Inactive levothyroxine 50 mcg tablet RxNorm: 333845 Take 1 Tablet(s) Oral every day 2020 Inactive Acid Instructional Technology Coordinator (famotidine) 20 mg tablet RxNorm: 507995 Take 1 Tablet(s) Oral every morning 2020 Inactive Heartburn Relief (famotidine) 10 mg tablet RxNorm: 738850 Take 1 Tablet(s) Oral QAM 2020 Inactive levothyroxine 50 mcg tablet RxNorm: 056440 Take 1 Tablet(s) Oral QD 021 2020 Inactive Singulair 10 mg tablet RxNorm: 649527 TAKE (1) TABLET BY MOUTH DAILY 2020 Inactive metformin 1,000 mg tablet RxNorm: 812359 1 Tablet(s) Oral two times a day 021 2021 Inactive lisinopril 2.5 mg tablet RxNorm: 912437 Take 1 Tablet(s) Oral every day 021 2020 Inactive hydrochlorothiazide 25 mg tablet RxNorm: 845836 Take 1 Tablet(s) Oral every day 021 2020 Inactive ondansetron 4 mg disintegrating tablet RxNorm: 798977 1 Tablet(s) Oral two times a day 021 2020 Inactive Sudafed 12 Hour 120 mg tablet,extended release RxNorm: 9798506 TAKE 1 TABLET BY MOUTH EVERY 12 HOURS NEEDED 2021 Inactive Heartburn Relief (famotidine) 10 mg tablet RxNorm: 560613 Take 1 Tablet(s) Oral every morning 021 2020 Inactive omeprazole 20 mg capsule,delayed release RxNorm: 273802 1 Capsule(s) Oral every evening 021 2020 Inactive sertraline 100 mg tablet RxNorm: 231848 2 Tablet(s) Oral every day 021 2020 Inactive levothyroxine 50 mcg tablet RxNorm: 057142 TAKE (1) TABLET BY MOUTH DAILY 021 2020 Inactive metformin 500 mg tablet RxNorm: 445772 1 Tablet(s) Oral two times a day take with 500mg to equal 1000mg 021 2020 Inactive gabapentin 300 mg capsule RxNorm: 870982 TAKE 1 CAPSULE BY MOUTH THREE TIMES A DAY 021 2020 Inactive lisinopril 2.5 mg tablet RxNorm: 614991 TAKE 1 TABLET BY MOUTH DAILY 021 2020 Inactive gabapentin 300 mg capsule RxNorm: 434301 TAKE 1 CAPSULE BY MOUTH THREE TIMES A DAY 021 2020 Inactive Singulair 10 mg tablet RxNorm: 130936 TAKE (1) TABLET BY MOUTH DAILY 021 2020 Inactive metformin 1,000 mg tablet RxNorm: 502547 1 Tablet(s) Oral two times a day 021 2020 Inactive atorvastatin 40 mg tablet RxNorm: 111364 1 Tablet(s) Oral every day 021 2020 Inactive omeprazole 20 mg capsule,delayed release RxNorm: 850031 1 Capsule(s) Oral every evening 021 2020 Inactive famotidine 10 mg tablet RxNorm: 800845 1 Tablet(s) Oral every morning 021 2020 Inactive Alcohol Prep Pads RxNorm: 894274 USE EACH MORNING 021 2020 Inactive omeprazole 20 mg capsule,delayed release RxNorm: 408610 1 Capsule(s) Oral two times a day 2021 Inactive omeprazole 20 mg capsule,delayed release RxNorm: 388789 TAKE 1 CAPSULE BY MOUTH EVERY DAY 2021 Inactive Macrobid 100 mg capsule RxNorm: 913793 1 Capsule(s) Oral every 12 hours with food 2020 Inactive omeprazole 20 mg capsule,delayed release RxNorm: 097984 1 Capsule(s) Oral two times a day 2021 Inactive metformin 1,000 mg tablet RxNorm: 651310 1 Tablet(s) Oral two times a day 2020 Inactive start on September 11, 2020 metformin 500 mg tablet RxNorm: 090523 1 Tablet(s) Oral two times a day take with 500mg to equal 1000mg 2019 Inactive gabapentin 300 mg capsule RxNorm: 430975 TAKE 1 CAPSULE BY MOUTH THREE TIMES DAILY 2020 Inactive cetirizine 10 mg tablet RxNorm: 7840771 TAKE (1) TABLET BY MOUTH DAILY 020 2020 Inactive metformin 500 mg tablet RxNorm: 671526 1 Tablet(s) Oral two times a day 2019 Inactive loperamide 2 mg tablet RxNorm: 041901 1 Tablet(s) Oral as needed take one tablet after each loose stool, maximum of 8 tablets in 24 hours 020 2021 Inactive Sudafed 12 Hour 120 mg tablet,extended release RxNorm: 5979940 TAKE 1 TABLET BY MOUTH EVERY 12 HOURS NEEDED 020 2019 Inactive hydrochlorothiazide 25 mg tablet RxNorm: 345230 TAKE (1) TABLET BY MOUTH EVERY DAY 020 2019 Inactive omeprazole 20 mg capsule,delayed release RxNorm: 524134 TAKE 1 CAPSULE BY MOUTH EVERY DAY 020 2020 Inactive metformin 500 mg tablet RxNorm: 259680 1 Tablet(s) Oral every day 2019 Inactive True Metrix Glucose Test Strip RxNorm: 1 Test Strips Miscellaneous two times a day as needed No Stop Date Active metformin 500 mg tablet RxNorm: 940047 1 Tablet(s) Oral every day 020 2019 Inactive diclofenac sodium 75 mg tablet,delayed release RxNorm: 780162 1 Tablet(s) PO BID 2021 Inactive This refill negates all other refills of this medication Sudafed 12 Hour 120 mg tablet,extended release RxNorm: 1696983 TAKE 1 TABLET BY MOUTH EVERY 12 HOURS NEEDED 020 2019 Inactive True Metrix Glucose Test Strip RxNorm: 1 Test Strips Miscellaneous every morning 020 2019 Inactive 100/container True Metrix Glucose Test Strip RxNorm: 1 Test Strips Miscellaneous QA 020 2019 Inactive 100/container loperamide 2 mg tablet RxNorm: 472091 1 Tablet(s) Oral as needed take one tablet after each loose stool, maximum of 8 tablets in 24 hours 020 2019 Inactive cetirizine 10 mg tablet RxNorm: 3136361 1 Tablet(s) PO daily 020 2019 Inactive loperamide 2 mg tablet RxNorm: 191140 1 Tablet(s) Oral as needed take one tablet after each loose stool, maximum of 8 tablets in 24 hours 2019 Inactive quetiapine 100 mg tablet RxNorm: 073284 1 Tablet(s) Oral every night at bedtime 2019 Inactive levothyroxine 50 mcg tablet RxNorm: 864992 1 Tablet(s) PO daily 2020 Inactive gabapentin 300 mg capsule RxNorm: 486906 1 Capsule(s) PO TID 2019 Inactive levothyroxine 50 mcg tablet RxNorm: 816163 1 Tablet(s) PO daily 2019 Inactive lisinopril 2.5 mg tablet RxNorm: 456970 1 Tablet(s) PO daily 2020 Inactive gabapentin 300 mg capsule RxNorm: 391667 1 Capsule(s) PO TID 2019 Inactive cetirizine 10 mg tablet RxNorm: 0923436 1 Tablet(s) PO daily 2019 Inactive Singulair 10 mg tablet RxNorm: 303599 1 Tablet(s) PO daily 2020 Inactive gentamicin 0.3 % eye drops RxNorm: 937175 1 Drop(s) ophthalmic (eye) four times a day 2019 Inactive gentamicin 0.3 % eye drops RxNorm: 715773 1 Drop(s) ophthalmic (eye) four times a day 2019 Inactive gentamicin 0.3 % eye drops RxNorm: 465829 1 Drop(s) ophthalmic (eye) four times a day 2019 Inactive hydrochlorothiazide 25 mg tablet RxNorm: 351950 1 Tablet(s) Oral every day 2019 Inactive Sudafed 12 Hour 120 mg tablet,extended release RxNorm: 7152736 TAKE (1) TABLET BY MOUTH EVERY 12 HOURS NEEDED 2019 Inactive loperamide 2 mg tablet RxNorm: 757418 1 Tablet(s) Oral as needed take one tablet after each loose stool, maximum of 8 tablets in 24 hours 020 2019 Inactive loperamide 2 mg tablet RxNorm: 335087 1 Tablet(s) Oral as needed take one tablet after each loose stool, maximum of 8 tablets in 24 hours 020 2019 Inactive atorvastatin 40 mg tablet RxNorm: 624767 1 Tablet(s) Oral every day 2020 Inactive quetiapine 100 mg tablet RxNorm: 772630 1 Tablet(s) Oral every night at bedtime 2019 Inactive sertraline 100 mg tablet RxNorm: 993896 1 Tablet(s) Oral 2019 Inactive omeprazole 20 mg capsule,delayed release RxNorm: 589692 1 Capsule(s) Oral every day 2019 Inactive amoxicillin 250 mg capsule RxNorm: 504851 1 Capsule(s) Oral three times a day 2019 Inactive multivitamin with iron-mineral tablet RxNorm: 1 Tablet(s) Oral every day 2021 Inactive cetirizine 10 mg tablet RxNorm: 1363170 1 Tablet(s) PO daily 2019 Inactive This refill negates all other refills of this medication. Please do not auto refill Singulair 10 mg tablet RxNorm: 701541 1 Tablet(s) PO daily 2019 Inactive This refill negates all other refills of this medication gabapentin 300 mg capsule RxNorm: 695130 1 Capsule(s) PO TID 2019 Inactive lisinopril 2.5 mg tablet RxNorm: 924722 1 Tablet(s) PO daily 2019 Inactive levothyroxine 50 mcg tablet RxNorm: 898326 1 Tablet(s) PO daily 2019 Inactive This refill negates all other refills of this medication hydrochlorothiazide 25 mg tablet RxNorm: 776846 1 Tablet(s) Oral every day 2019 Inactive fenugreek seed extract 500 mg capsule RxNorm: 1 Capsule(s) Oral three times a day 2021 Inactive Alcohol Prep Pads RxNorm: 439711 1 Patch TOP QAM 2020 Inactive loperamide 2 mg tablet RxNorm: 908680 1 Tablet(s) Oral as needed take one [...] 2019 Inactive hydrochlorothiazide 25 mg tablet RxNorm: 588096 1 Tablet(s) Oral every day 2019 Inactive Sudafed 12 Hour 120 mg tablet,extended release RxNorm: 1572522 1 Tablet(s) Oral every 12 hours as needed 2018 Inactive omeprazole 20 mg capsule,delayed release RxNorm: 345669 1 Capsule(s) Oral every day 2019 Inactive Sudafed 12 Hour 120 mg tablet,extended release RxNorm: 0774217 1 Tablet(s) Oral every 12 hours as needed 2018 Inactive pantoprazole 40 mg tablet,delayed release RxNorm: 351989 1 Tablet(s) Oral every day 2018 Inactive discontinue any other H2Blkr. and PPI albuterol sulfate 2.5 mg/3 mL (0.083 %) solution for nebulization RxNorm: 196185 1 Vial Inhalation every four hours as needed as needed for dyspnea 2019 Inactive 60/box. This refill negates all other refills of this medication. Please do not fill early. Please do not auto refill. Symbicort 160 mcg-4.5 mcg/actuation HFA aerosol inhaler RxNorm: 1327204 2 Puff(s) INH BID No Stop Date Active Alcohol Prep Pads RxNorm: 866520 1 Patch TOP QAM 2019 Inactive Ventolin HFA 90 mcg/actuation aerosol inhaler RxNorm: 385302 2 Puff(s) INH QID 019 2019 Inactive Please do not fill early. Please do not auto refill. This refill negates all other refills of this medication True Metrix Glucose Test Strip RxNorm: 1 Test Strips Miscellaneous QAM 019 2019 Inactive 100/container atorvastatin 40 mg tablet RxNorm: 790496 1 Tablet(s) Oral every day 2019 Inactive buspirone 7.5 mg tablet RxNorm: 937644 1 Tablet(s) PO BID 019 2020 Inactive This refill negates all other refills of this medication hydrochlorothiazide 12.5 mg tablet RxNorm: 806946 1 Tablet(s) PO QAM 019 2019 Inactive levmetamfetamine 50 mg nasal inhaler RxNorm: 1 Unit(s) NASAL Q3-4H Do not use more than every 3 hours or 8 times/24hours 019 2021 Inactive Please do not auto refill. This refill negates all other refills of this medication Ventolin HFA 90 mcg/actuation aerosol inhaler RxNorm: 243735 2 Puff(s) INH QID 019 2018 Inactive Please do not fill early. Please do not auto refill. This refill negates all other refills of this medication Singulair 10 mg tablet RxNorm: 605811 1 Tablet(s) PO daily 019 2019 Inactive This refill negates all other refills of this medication cetirizine 10 mg tablet RxNorm: 5976613 1 Tablet(s) PO daily 019 2019 Inactive This refill negates all other refills of this medication. Please do not auto refill levothyroxine 50 mcg tablet RxNorm: 211609 1 Tablet(s) PO daily 019 2019 Inactive This refill negates all other refills of this medication diclofenac sodium 75 mg tablet,delayed release RxNorm: 066538 1 Tablet(s) PO BID 019 2019 Inactive This refill negates all other refills of this medication ranitidine 150 mg tablet RxNorm: 296599 1 Tablet(s) PO BID 019 2018 Inactive This refill negates all other refills of this medication Calcium 600-D3 Plus (mag-zinc) 600 mg calcium-800 unit-50 mg tablet RxNorm: 1 Tablet(s) PO daily take an additonal tablet for itching. 2018 Inactive This refill negates all other refills of this medication albuterol sulfate 2.5 mg/3 mL (0.083 %) solution for nebulization RxNorm: 351397 1 Vial INH QID 2018 Inactive 60/box. This refill negates all other refills of this medication. Please do not fill early. Please do not auto refill. lisinopril 2.5 mg tablet RxNorm: 516912 1 Tablet(s) PO daily 019 2019 Inactive gabapentin 300 mg capsule RxNorm: 371767 1 Capsule(s) PO TID 019 2019 Inactive atorvastatin 20 mg tablet RxNorm: 505945 1 Tablet(s) PO QHS 2018 Inactive This refill negates all other refills of this medication TRUEplus Lancets 30 gauge RxNorm: 1 Lancets Miscellaneous QAM 019 2018 Inactive 100/box gabapentin 300 mg capsule RxNorm: 511096 1 Capsule(s) PO TID 019 2018 Inactive Flintstones Complete (iron) 18 mg iron chewable tablet RxNorm: 1 Tablet(s) PO daily 019 2021 Inactive This refill negates all other refills of this medication gabapentin 300 mg capsule RxNorm: 271187 1 Capsule(s) PO TID as needed 019 2018 Inactive True Metrix Glucose Test Strip RxNorm: 1 Test Strips Miscellaneous QAM 2018 Inactive 100/container Alcohol Prep Pads RxNorm: 411955 1 Patch TOP QAM 019 2018 Inactive TRUEplus Lancets 30 gauge RxNorm: 1 Lancets Miscellaneous QAM 019 2018 Inactive 100/box lisinopril 2.5 mg tablet RxNorm: 665735 1 Tablet(s) PO daily 019 2018 Inactive ranitidine 150 mg tablet RxNorm: 486887 1 Tablet(s) PO BID 019 2018 Inactive This refill negates all other refills of this medication albuterol sulfate 2.5 mg/3 mL (0.083 %) solution for nebulization RxNorm: 416389 1 Vial INH QID 2018 Inactive 60/box. [...] this medication gabapentin 300 mg capsule RxNorm: 768557 1 Capsule(s) PO TID as needed 019 2018 Inactive atorvastatin 20 mg tablet RxNorm: 114565 1 Tablet(s) PO QHS 019 2018 Inactive This refill negates all other refills of this medication trazodone 50 mg tablet RxNorm: 683962 1 Tablet(s) PO QHS 019 2018 Inactive This refill negates all other refills of this medication Ventolin HFA 90 mcg/actuation aerosol inhaler RxNorm: 535093 2 Puff(s) INH QID 019 2018 Inactive Please do not fill early. Please do not auto refill. This refill negates all other refills of this medication Calcium 600-D3 Plus 600 mg calcium-800 unit-50 mg tablet RxNorm: 1 Tablet(s) PO daily take an additonal tablet for itching. 019 2018 Inactive This refill negates all other refills of this medication Singulair 10 mg tablet RxNorm: 115556 1 Tablet(s) PO daily 019 2018 Inactive This refill negates all other refills of this medication buspirone 7.5 mg tablet RxNorm: 429733 1 Tablet(s) PO BID 019 2018 Inactive This refill negates all other refills of this medication diclofenac sodium 75 mg tablet,delayed release RxNorm: 790004 1 Tablet(s) PO BID 019 2018 Inactive This refill negates all other refills of this medication hydrochlorothiazide 12.5 mg tablet RxNorm: 165707 1 Tablet(s) PO QAM 019 2018 Inactive metoprolol succinate ER 50 mg tablet,extended release 24 hr RxNorm: 584626 1 Tablet(s) PO daily 019 2018 Inactive This refill negates all other refills of this medication levothyroxine 50 mcg tablet RxNorm: 825518 1 Tablet(s) PO daily 019 2018 Inactive This refill negates all other refills of this medication cetirizine 10 mg tablet RxNorm: 0204134 1 Tablet(s) PO daily 019 2018 Inactive This refill negates all other refills of this medication. Please do not auto refill Flintstones Complete (iron) 18 mg iron chewable tablet RxNorm: 1 Tablet(s) PO daily 019 2018 Inactive This refill negates all other refills of this medication buspirone 7.5 mg tablet RxNorm: 301335 1 Tablet(s) PO BID 2018 Inactive cetirizine 10 mg tablet RxNorm: 1895862 1 Tablet(s) PO daily 2018 Inactive Guaiasorb DM 10 mg-100 mg/5 mL oral liquid RxNorm: 155920 10 Milliliter(s) PO As needed every 4 hr 2018 Inactive Vicks Vaporub 4.7 %-1.2 %-2.6 % topical ointment RxNorm: 3566197 1 Application TOP TID 2018 Inactive levmetamfetamine 50 mg nasal inhaler RxNorm: 1 Unit(s) NASAL Q3-4H 2017 Inactive sertraline 50 mg tablet RxNorm: 725049 1 Tablet(s) PO daily 2018 Inactive Please note dose trazodone 50 mg tablet RxNorm: 044407 1 Tablet(s) PO QHS 2018 Inactive sertraline 50 mg tablet RxNorm: 897663 1 Tablet(s) PO daily 2017 Inactive amoxicillin 500 mg tablet RxNorm: 170275 1 Tablet(s) PO Q12H 2017 Inactive albuterol sulfate 2.5 mg/3 mL (0.083 %) solution for nebulization RxNorm: 921905 1 Vial INH QID 2018 Inactive 60/box. Please do not fill early. Please do not auto refill. Prozac 10 mg capsule RxNorm: 875327 1 Capsule(s) PO daily 2017 Inactive buspirone 7.5 mg tablet RxNorm: 873280 1 Tablet(s) PO BID 018 2018 Inactive gabapentin 300 mg capsule RxNorm: 542210 1 Capsule(s) PO TID as needed 2018 Inactive hydrochlorothiazide 12.5 mg tablet RxNorm: 828160 1 Tablet(s) PO QAM 018 2018 Inactive ranitidine 150 mg tablet RxNorm: 796091 1 Tablet(s) PO BID 018 2018 Inactive Macrobid 100 mg capsule RxNorm: 975770 1 Capsule(s) PO Q12H 018 2017 Inactive Singulair 10 mg tablet RxNorm: 057741 1 Tablet(s) PO daily 018 2018 Inactive Ventolin HFA 90 mcg/actuation aerosol inhaler RxNorm: 9348107 2 Puff(s) INH QID 018 2018 Inactive Singulair 10 mg tablet RxNorm: 009159 1 Tablet(s) PO daily 018 2017 Inactive buspirone 7.5 mg tablet RxNorm: 996726 1 Tablet(s) PO BID 018 2017 Inactive Prozac 10 mg capsule RxNorm: 916915 1 Capsule(s) PO daily 018 2017 Inactive diclofenac sodium 75 mg tablet,delayed release RxNorm: 041103 1 Tablet(s) PO BID 018 2017 Inactive lisinopril 2.5 mg tablet RxNorm: 593821 1 Tablet(s) PO daily 018 2017 Inactive Neilmed Pediatric Sinus Rinse Refill packet RxNorm: 1 Unit Dose NASAL PRN 018 2021 Inactive metoprolol succinate ER 50 mg tablet,extended release 24 hr RxNorm: 162703 1 Tablet(s) PO daily 018 2017 Inactive levothyroxine 50 mcg tablet RxNorm: 031232 1 Tablet(s) PO daily 018 2017 Inactive TRUEplus Lancets 30 gauge RxNorm: 1 Lancets Miscellaneous QAM 018 2017 Inactive 100/box Ventolin HFA 90 mcg/actuation aerosol inhaler RxNorm: 825110 2 Puff(s) INH QID 018 2017 Inactive Aleve 220 mg capsule RxNorm: 7952343 1 Capsule(s) PO BID 018 2018 Inactive ranitidine 150 mg tablet RxNorm: 946717 1 Tablet(s) PO BID 018 2017 Inactive gabapentin 300 mg capsule RxNorm: 862050 1 Capsule(s) PO TID as needed 2017 Inactive atorvastatin 20 mg tablet RxNorm: 636406 1 Tablet(s) PO QHS 018 2017 Inactive True Metrix Glucose Test Strip RxNorm: 1 Test Strips Miscellaneous QAM 2017 Inactive 50/container Calcium 600-D3 Plus 600 mg calcium-800 unit-50 mg tablet RxNorm: 1 Tablet(s) PO daily take an additonal tablet for itching. 2017 Inactive hydrochlorothiazide 12.5 mg tablet RxNorm: 878317 1 Tablet(s) PO QAM 018 2017 Inactive Flintstones Complete (iron) 18 mg iron chewable tablet RxNorm: 1 Tablet(s) PO daily 018 2017 Inactive True Metrix Glucose Meter RxNorm: miscellaneous 019 2018 Inactive sertraline 50 mg tablet RxNorm: 516503 1 Tablet(s) PO daily 020 2019 Inactive loperamide 2 mg tablet RxNorm: 449673 oral 019 2018 Inactive d-mannose oral powder RxNorm: PO 018 2021 Inactive Symbicort 160 mcg-4.5 mcg/actuation HFA aerosol inhaler RxNorm: 0001373 2 Puff(s) INH BID 019 2018 Inactive Medication Administered No Medication Administered data Procedures Procedure Codes Date Patient Health Questionnaire CPT-4: DPHQ Pain Screening CPT-4: PAS 2022 Tobacco Assessment/Screening CPT-4: TCA Hypertension CPT-4: HTN 08/17/2022 Kismet Fany Assessment CPT-4: DSWA 04/02 Patient Health [...] CPT-4: VACP Fall Risk Assessment SNOMED CT: [id number] 4 CPT-4: DFRA 01/13/2021 Kismet Fany Assessment CPT-4: DSWA 12/01 Urinalysis, dip stick CPT-4: 08835 09/24/2020 Patient Health Questionnaire CPT-4: DPHQ Electrocardiogram CPT-4: 88063 05/14/2020 Tobacco Assessment/Screening CPT-4: TCA Fall Risk Assessment SNOMED CT: 58336883 4 CPT-4: DFRA 01/01/2020 Functional Assessment CPT-4: DFA 01/01/2020 Kismet Fany Assessment CPT-4: DSWA 11/04 Patient Health Questionnaire CPT-4: DPHQ Kismet Fany Assessment CPT-4: DSWA 10/03 Hypertension CPT-4: HTN 10/17/2019 Fall Risk Assessment SNOMED CT: 34594412 4 CPT-4: DFRA 09/19/2019 Functional Assessment CPT-4: DFA 09/19/2019 Urinalysis, dip stick CPT-4: 86678 06/21/2019 Tobacco Assessment/Screening CPT-4: TCA Patient Health Questionnaire CPT-4: DPHQ AHA/REBECCA Classification Assessment CPT-4: DAHA 04/25/2019 Controlled Substance Report CPT-4: CTRSU 04/03 Urinalysis, dip stick CPT-4: 90765 03/28/2019 Urinalysis, dip stick CPT-4: 05224 03/28/2019 G1T-Lzgrurvcfntsuoz CPT-4: 35055 Unknown N8N-Uvihzcmqyzsjalj CPT-4: 41064 Unknown F4H-Ytyqwfnnzpmtewr CPT-4: 88140 Unknown R6O-Mbjmvfdlwmfhzbn CPT-4: 08996 Unknown D3A-Vrejwrmebtusril CPT-4: 46171 Unknown P6N-Ruurcdsiyyafmla CPT-4: 29487 Unknown H3X-Qfgepciuqeihdhj CPT-4: 66093 Unknown B0X-Kpzpcwsfbrwoogu CPT-4: 16934 Unknown F9U-Gpnxskreeuuorea CPT-4: 33512 Unknown W0Y-Vktabjxrnjdqdbs CPT-4: 56714 Unknown Q4S-Tsemggznmukcdsd CPT-4: 90719 Unknown Gynecology Referral SNOMED CT: 251106160 CPT-4: R14 Unknown Reason For Visit No Reason For Visit data Plan of Care Planned Activity Notes Codes Status Date Referral: Pending Gynecology Referral Information Referral Processed Referral: Pending Pulmonolog y Referral Information Referral Processed Referral: Pending Psychiatry Referral Information Referral Initiated Referral: Pending Respirator y Services Referral Information Referral Initiated Referral: Pending Ophthalmol ogy Referral Information Referral Initiated Referral: [facility] WPtel: [address] [place] [address] Medical Information Officer placed a call out to the patient to notify her that it has been recommended that she be seen by a urologist. Patient agreed to be seen, does not have a provider of choice and no transportation issues. Medical Information Officer faxed referral and clinical notes to [facility] in [place], [place] near the patient's home. [...] seen and prefers a provider in the [place] or [facility]. Medical Information Officer placed a call out to everyone listed in the area and the only location that was able to accept the patient's insurance was [facility] [address] [place] [address] and spoke with Maylin. Maylin asked that the patient's referral, face sheet and visit notes be faxed to . Medical Information Officer faxed over requested documents. Patient appointment confirmation letter generated and mailed to her home address. Patient to call to schedule an appointment. Processed Referral: [facility] WPtel: [address] [place], [place] [id number] Patient notified that it has been advised that she be seen by Neurology. Patient agreed to be seen and prefers to be seen by a provider in the [place], [place] area. Patient denies any concerns with transportation, and prefers to schedule her own appointment. Medical Information Officer placed a call out to [facility] and spoke with [...]
--- OUTSIDE RECORDS SUMMARY | 2023-12-07 02:22 | XMS_ITS | CCD ---
Author Name Leena Culver NP Address [id number] [place] [address] [address] [place] [address] Phone Organization [facility] Phone Care Team Providers Care Meeting Coordinator Name Role Phone Anna Culver NP Primary Care Provider Unav ailable Unavailable Chronic Care Management Unavaila ble Summary Purpose DataExchange Insurance Providers Payer name Policy type / Coverage type Covered libertarian ID Effective Begin Date Effective End Date SUKI MAYO [id number] Unknown Unknown Family history Mother Diagnosis Age [...] Unknown Disability 05/31/[address]: 475448092 Has never s moked or chewed tobacco 05/31/[address]: 573922127 Never drinks alco hol 05/31/2018 Has the patient ever used illegal drugs? Unknown Has never used illegal drugs 05/31/2018 DNR Order/ Advanced Directive Unknown Full Code 05/31/2018 Allergies, Adverse Reactions, Alerts Substance Reaction Codes Entered Date Inactivated Date Status OxyContin itch, RxNorm: 306276 01/13/2021 No Inactive Da te Active *No [...] ICD-10: E78. 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 therapy ICD-10: Z79.899 ICD-9: V58.69 04/25/2019 Inactive Type 2 diabetes mellitus wit hout complications ICD-10: E11.9 ICD-9: 250.00 10/03/2018 Inactive Wheezing ICD-10: R06.2 ICD-9: 786.07 08/08/2018 Inactive Abnormal urine finding ICD-10: R82.90 ICD-9: 791.9 09/24/2020 Resolved Abrasion of toe ICD-10: S90.416A ICD-9: 917.0 02/14/2020 Resolved [place] eye ICD-10: H10.029 ICD-9: 372.03 12/29/2019 Resolved [...] Instructions omeprazole 40 mg capsule,delayed release RxNorm: 563784 Take 1 Capsule(s) Oral every night at bedtime 023 2022 Inactive gabapentin 300 mg capsule RxNorm: 042747 Take 1 Capsule(s) Oral three times a day 023 2022 Inactive montelukast 10 mg tablet RxNorm: 570465 Take 1 Tablet(s) Oral every day 023 2022 Inactive omeprazole 20 mg capsule,delayed release RxNorm: 033437 Take 1 Capsule(s) Oral every evening 2022 Inactive Alcohol Prep Pads RxNorm: 166579 USE EACH MORNING 2021 Inactive E11.42 clotrimazole 1 % topical cream RxNorm: 668221 Apply 1 Application Topical two times a day as needed apply to affected area(s) twice daily until healed 2021 Inactive Victoza 2-Sebastián 0.6 mg/0.1 mL (18 mg/3 mL) subcutaneous pen injector RxNorm: 920462 Inject 0.6-1.8 Milligram(s) Subcutaneous once a week Inject 0.6mg/0.1ml week one, 1.2mg/0.2ml week two, 1.8/0.3ml weekly thereafter 2021 Inactive ibuprofen 800 mg tablet RxNorm: 046513 Take 1 Tablet(s) Oral Q8H as needed for pain take with food No Stop Date Active Ozempic 1 mg/dose (4 mg/3 mL) subcutaneous pen injector RxNorm: 9739781 Take 1 Unit Dose Subcutaneous QWeek Tuesday2021 Inactive lisinopril 2.5 mg tablet RxNorm: 804063 Take 1 Tablet(s) Oral every day 022 2021 Inactive lisinopril 2.5 mg tablet RxNorm: 295194 Take 1 Tablet(s) Oral every day 022 2022 Inactive hydrochlorothiazide 25 mg tablet RxNorm: 210627 Take 1 Tablet(s) Oral every day 022 2021 Inactive Ozempic 1 mg/dose (4 mg/3 mL) subcutaneous pen injector RxNorm: 8618469 Take 1 Unit Dose Subcutaneous QWeek 022 2021 Inactive famotidine 20 mg tablet RxNorm: 453906 Take 1 Tablet(s) Oral every morning 022 2021 Inactive levothyroxine 50 mcg tablet RxNorm: 590839 Take 1 Tablet(s) Oral every day 022 2021 Inactive atorvastatin 20 mg tablet RxNorm: 492341 Take 1 Tablet(s) Oral every night at bedtime 022 2021 Inactive Cleocin T 1 % lotion RxNorm: 268408 Take 2 Gram(s) Topical every day 022 2021 Inactive Cleocin T 1 % lotion RxNorm: 526269 Take 2 Gram(s) Topical every day 022 2021 Inactive Ozempic 1 mg/dose (4 mg/3 mL) subcutaneous pen injector RxNorm: 2415399 Take 1 Unit Dose Subcutaneous QWeek 022 2021 Inactive Ozempic 0.25 mg or 0.5 mg (2 mg/1.5 mL) subcutaneous pen injector RxNorm: 7168659 INJECT 0.5 MGS SUBCUTANEOUSLY EVERY WEEK 2021 Inactive omeprazole 20 mg capsule,delayed release RxNorm: 454351 Take 1 Capsule(s) Oral every evening 2021 Inactive levothyroxine 50 mcg tablet RxNorm: 494176 Take 1 Tablet(s) Oral every day 2021 Inactive atorvastatin 20 mg tablet RxNorm: 412041 Take 1 Tablet(s) Oral every night at bedtime 2021 Inactive This refill negates all other refills of this medication lisinopril 2.5 mg tablet RxNorm: 706682 Take 1 Tablet(s) Oral every day 022 2021 Inactive gabapentin 300 mg capsule RxNorm: 996079 Take 1 Capsule(s) Oral three times a day 022 2021 Inactive montelukast 10 mg tablet RxNorm: 985354 Take 1 Tablet(s) Oral every day 022 2021 Inactive cholecalciferol (vitamin D3) 50 mcg (2,000 unit) tablet RxNorm: 084860 Take 1 Tablet(s) Oral every day 022 2022 Inactive Myrbetriq 50 mg tablet,extended release RxNorm: 6512560 1 Tablet(s) Oral every day No Stop Date Active Ozempic 0.25 mg or 0.5 mg (2 mg/1.5 mL) subcutaneous pen injector RxNorm: 8266880 inject 0.5 milligrams subcutaneously every week 2021 Inactive Ozempic 0.25 mg or 0.5 mg (2 mg/1.5 mL) subcutaneous pen injector RxNorm: 2006788 Take 0.5 Capsule(s) Injection once a week 2021 Inactive omeprazole 20 mg capsule,delayed release RxNorm: 918637 Take 1 Capsule(s) Oral every evening 2020 Inactive Ozempic 0.25 mg or 0.5 mg (2 mg/1.5 mL) subcutaneous pen injector RxNorm: 2161887 Take 0.25 Milligram(s) Subcutaneous once a week 2021 Inactive Easy Touch Alcohol Prep Pads RxNorm: 410275 USE DIRECTED EACH MORNING 2021 Inactive Probiotic 10 billion cell capsule RxNorm: 9842713 Take 1 Capsule(s) Oral every day 2021 Inactive levothyroxine 50 mcg tablet RxNorm: 679581 Take 1 Tablet(s) Oral every day 2020 Inactive Acid Percussion Instrument Repairer (famotidine) 20 mg tablet RxNorm: 748142 Take 1 Tablet(s) Oral every morning 2020 Inactive Heartburn Relief (famotidine) 10 mg tablet RxNorm: 750269 Take 1 Tablet(s) Oral QAM 2020 Inactive levothyroxine 50 mcg tablet RxNorm: 965827 Take 1 Tablet(s) Oral QD 2020 Inactive Singulair 10 mg tablet RxNorm: 688014 TAKE (1) TABLET BY MOUTH DAILY 2020 Inactive metformin 1,000 mg tablet RxNorm: 820205 1 Tablet(s) Oral two times a day 021 2021 Inactive lisinopril 2.5 mg tablet RxNorm: 319330 Take 1 Tablet(s) Oral every day 021 2020 Inactive hydrochlorothiazide 25 mg tablet RxNorm: 479428 Take 1 Tablet(s) Oral every day 021 2020 Inactive ondansetron 4 mg disintegrating tablet RxNorm: 251173 1 Tablet(s) Oral two times a day 021 2020 Inactive Sudafed 12 Hour 120 mg tablet,extended release RxNorm: 4268057 TAKE 1 TABLET BY MOUTH EVERY 12 HOURS NEEDED 2021 Inactive Heartburn Relief (famotidine) 10 mg tablet RxNorm: 991218 Take 1 Tablet(s) Oral every morning 021 2020 Inactive omeprazole 20 mg capsule,delayed release RxNorm: 032415 1 Capsule(s) Oral every evening 021 2020 Inactive sertraline 100 mg tablet RxNorm: 608894 2 Tablet(s) Oral every day 021 2020 Inactive levothyroxine 50 mcg tablet RxNorm: 235359 TAKE (1) TABLET BY MOUTH DAILY 021 2020 Inactive metformin 500 mg tablet RxNorm: 059626 1 Tablet(s) Oral two times a day take with 500mg to equal 1000mg 021 2020 Inactive gabapentin 300 mg capsule RxNorm: 326407 TAKE 1 CAPSULE BY MOUTH THREE TIMES A DAY 021 2020 Inactive lisinopril 2.5 mg tablet RxNorm: 722355 TAKE 1 TABLET BY MOUTH DAILY 021 2020 Inactive gabapentin 300 mg capsule RxNorm: 176927 TAKE 1 CAPSULE BY MOUTH THREE TIMES A DAY 021 2020 Inactive Singulair 10 mg tablet RxNorm: 262642 TAKE (1) TABLET BY MOUTH DAILY 021 2020 Inactive metformin 1,000 mg tablet RxNorm: 258416 1 Tablet(s) Oral two times a day 021 2020 Inactive atorvastatin 40 mg tablet RxNorm: 938856 1 Tablet(s) Oral every day 021 2020 Inactive omeprazole 20 mg capsule,delayed release RxNorm: 661903 1 Capsule(s) Oral every evening 021 2020 Inactive famotidine 10 mg tablet RxNorm: 536457 1 Tablet(s) Oral every morning 021 2020 Inactive Alcohol Prep Pads RxNorm: 215793 USE EACH MORNING 021 2020 Inactive omeprazole 20 mg capsule,delayed release RxNorm: 035379 1 Capsule(s) Oral two times a day 2021 Inactive omeprazole 20 mg capsule,delayed release RxNorm: 641945 TAKE 1 CAPSULE BY MOUTH EVERY DAY 2021 Inactive Macrobid 100 mg capsule RxNorm: 945687 1 Capsule(s) Oral every 12 hours with food 2020 Inactive omeprazole 20 mg capsule,delayed release RxNorm: 099613 1 Capsule(s) Oral two times a day 2021 Inactive metformin 1,000 mg tablet RxNorm: 991453 1 Tablet(s) Oral two times a day 2020 Inactive start on September 11, 2020 metformin 500 mg tablet RxNorm: 154293 1 Tablet(s) Oral two times a day take with 500mg to equal 1000mg 2019 Inactive gabapentin 300 mg capsule RxNorm: 422530 TAKE 1 CAPSULE BY MOUTH THREE TIMES DAILY 2020 Inactive cetirizine 10 mg tablet RxNorm: 4162449 TAKE (1) TABLET BY MOUTH DAILY 020 2020 Inactive metformin 500 mg tablet RxNorm: 165032 1 Tablet(s) Oral two times a day 020 2019 Inactive loperamide 2 mg tablet RxNorm: 255993 1 Tablet(s) Oral as needed take one tablet after each loose stool, maximum of 8 tablets in 24 hours 020 2021 Inactive Sudafed 12 Hour 120 mg tablet,extended release RxNorm: 4657382 TAKE 1 TABLET BY MOUTH EVERY 12 HOURS NEEDED 020 2019 Inactive hydrochlorothiazide 25 mg tablet RxNorm: 223595 TAKE (1) TABLET BY MOUTH EVERY DAY 020 2019 Inactive omeprazole 20 mg capsule,delayed release RxNorm: 223506 TAKE 1 CAPSULE BY MOUTH EVERY DAY 020 2020 Inactive metformin 500 mg tablet RxNorm: 776453 1 Tablet(s) Oral every day 020 2019 Inactive True Metrix Glucose Test Strip RxNorm: 1 Test Strips Miscellaneous two times a day as needed No Stop Date Active metformin 500 mg tablet RxNorm: 460616 1 Tablet(s) Oral every day 2019 Inactive diclofenac sodium 75 mg tablet,delayed release RxNorm: 455394 1 Tablet(s) PO BID 2021 Inactive This refill negates all other refills of this medication Sudafed 12 Hour 120 mg tablet,extended release RxNorm: 4842012 TAKE 1 TABLET BY MOUTH EVERY 12 HOURS NEEDED 020 2019 Inactive True Metrix Glucose Test Strip RxNorm: 1 Test Strips Miscellaneous every morning 020 2019 Inactive 100/container True Metrix Glucose Test Strip RxNorm: 1 Test Strips Miscellaneous QA 020 2019 Inactive 100/container loperamide 2 mg tablet RxNorm: 760143 1 Tablet(s) Oral as needed take one tablet after each loose stool, maximum of 8 tablets in 24 hours 020 2019 Inactive cetirizine 10 mg tablet RxNorm: 0148837 1 Tablet(s) PO daily 020 2019 Inactive loperamide 2 mg tablet RxNorm: 487058 1 Tablet(s) Oral as needed take one tablet after each loose stool, maximum of 8 tablets in 24 hours 2019 Inactive quetiapine 100 mg tablet RxNorm: 684075 1 Tablet(s) Oral every night at bedtime 2019 Inactive levothyroxine 50 mcg tablet RxNorm: 989885 1 Tablet(s) PO daily 2020 Inactive gabapentin 300 mg capsule RxNorm: 315486 1 Capsule(s) PO TID 2019 Inactive levothyroxine 50 mcg tablet RxNorm: 390823 1 Tablet(s) PO daily 2019 Inactive lisinopril 2.5 mg tablet RxNorm: 882633 1 Tablet(s) PO daily 2020 Inactive gabapentin 300 mg capsule RxNorm: 615809 1 Capsule(s) PO TID 2019 Inactive cetirizine 10 mg tablet RxNorm: 2631815 1 Tablet(s) PO daily 2019 Inactive Singulair 10 mg tablet RxNorm: 168272 1 Tablet(s) PO daily 2020 Inactive gentamicin 0.3 % eye drops RxNorm: 761128 1 Drop(s) ophthalmic (eye) four times a day 2019 Inactive gentamicin 0.3 % eye drops RxNorm: 597425 1 Drop(s) ophthalmic (eye) four times a day 2019 Inactive gentamicin 0.3 % eye drops RxNorm: 019047 1 Drop(s) ophthalmic (eye) four times a day 2019 Inactive hydrochlorothiazide 25 mg tablet RxNorm: 783779 1 Tablet(s) Oral every day 2019 Inactive Sudafed 12 Hour 120 mg tablet,extended release RxNorm: 5571149 TAKE (1) TABLET BY MOUTH EVERY 12 HOURS NEEDED 2019 Inactive loperamide 2 mg tablet RxNorm: 668844 1 Tablet(s) Oral as needed take one tablet after each loose stool, maximum of 8 tablets in 24 hours 020 2019 Inactive loperamide 2 mg tablet RxNorm: 061900 1 Tablet(s) Oral as needed take one tablet after each loose stool, maximum of 8 tablets in 24 hours 020 2019 Inactive atorvastatin 40 mg tablet RxNorm: 890457 1 Tablet(s) Oral every day 020 2020 Inactive quetiapine 100 mg tablet RxNorm: 362295 1 Tablet(s) Oral every night at bedtime 2019 Inactive sertraline 100 mg tablet RxNorm: 395093 1 Tablet(s) Oral 2019 Inactive omeprazole 20 mg capsule,delayed release RxNorm: 152361 1 Capsule(s) Oral every day 2019 Inactive amoxicillin 250 mg capsule RxNorm: 272362 1 Capsule(s) Oral three times a day 2019 Inactive multivitamin with iron-mineral tablet RxNorm: 1 Tablet(s) Oral every day 2021 Inactive cetirizine 10 mg tablet RxNorm: 9894350 1 Tablet(s) PO daily 2019 Inactive This refill negates all other refills of this medication. Please do not auto refill Singulair 10 mg tablet RxNorm: 599298 1 Tablet(s) PO daily 2019 Inactive This refill negates all other refills of this medication gabapentin 300 mg capsule RxNorm: 329049 1 Capsule(s) PO TID 2019 Inactive lisinopril 2.5 mg tablet RxNorm: 929412 1 Tablet(s) PO daily 2019 Inactive levothyroxine 50 mcg tablet RxNorm: 971206 1 Tablet(s) PO daily 2019 Inactive This refill negates all other refills of this medication hydrochlorothiazide 25 mg tablet RxNorm: 819852 1 Tablet(s) Oral every day 2019 Inactive fenugreek seed extract 500 mg capsule RxNorm: 1 Capsule(s) Oral three times a day 2021 Inactive Alcohol Prep Pads RxNorm: 982207 1 Patch TOP QAM 2020 Inactive loperamide 2 mg tablet RxNorm: 548728 1 Tablet(s) Oral as needed take one [...] 2019 Inactive hydrochlorothiazide 25 mg tablet RxNorm: 044486 1 Tablet(s) Oral every day 2019 Inactive Sudafed 12 Hour 120 mg tablet,extended release RxNorm: 8002765 1 Tablet(s) Oral every 12 hours as needed 2018 Inactive omeprazole 20 mg capsule,delayed release RxNorm: 618616 1 Capsule(s) Oral every day 2019 Inactive Sudafed 12 Hour 120 mg tablet,extended release RxNorm: 0909089 1 Tablet(s) Oral every 12 hours as needed 2018 Inactive pantoprazole 40 mg tablet,delayed release RxNorm: 859537 1 Tablet(s) Oral every day 2018 Inactive discontinue any other H2Blkr. and PPI albuterol sulfate 2.5 mg/3 mL (0.083 %) solution for nebulization RxNorm: 303379 1 Vial Inhalation every four hours as needed as needed for dyspnea 2019 Inactive 60/box. This refill negates all other refills of this medication. Please do not fill early. Please do not auto refill. Symbicort 160 mcg-4.5 mcg/actuation HFA aerosol inhaler RxNorm: 2692640 2 Puff(s) INH BID 019 No Stop Date Active Alcohol Prep Pads RxNorm: 202608 1 Patch TOP QAM 2019 Inactive Ventolin HFA 90 mcg/actuation aerosol inhaler RxNorm: 586970 2 Puff(s) INH QID 2019 Inactive Please do not fill early. Please do not auto refill. This refill negates all other refills of this medication True Metrix Glucose Test Strip RxNorm: 1 Test Strips Miscellaneous QA 2019 Inactive 100/container atorvastatin 40 mg tablet RxNorm: 777062 1 Tablet(s) Oral every day 2019 Inactive buspirone 7.5 mg tablet RxNorm: 711793 1 Tablet(s) PO BID 019 2020 Inactive This refill negates all other refills of this medication hydrochlorothiazide 12.5 mg tablet RxNorm: 191391 1 Tablet(s) PO QAM 019 2019 Inactive levmetamfetamine 50 mg nasal inhaler RxNorm: 1 Unit(s) NASAL Q3-4H Do not use more than every 3 hours or 8 times/24hours 019 2021 Inactive Please do not auto refill. This refill negates all other refills of this medication Ventolin HFA 90 mcg/actuation aerosol inhaler RxNorm: 085385 2 Puff(s) INH QID 019 2018 Inactive Please do not fill early. Please do not auto refill. This refill negates all other refills of this medication Singulair 10 mg tablet RxNorm: 828777 1 Tablet(s) PO daily 019 2019 Inactive This refill negates all other refills of this medication cetirizine 10 mg tablet RxNorm: 5463458 1 Tablet(s) PO daily 019 2019 Inactive This refill negates all other refills of this medication. Please do not auto refill levothyroxine 50 mcg tablet RxNorm: 350202 1 Tablet(s) PO daily 019 2019 Inactive This refill negates all other refills of this medication diclofenac sodium 75 mg tablet,delayed release RxNorm: 665665 1 Tablet(s) PO BID 019 2019 Inactive This refill negates all other refills of this medication ranitidine 150 mg tablet RxNorm: 232034 1 Tablet(s) PO BID 019 2018 Inactive This refill negates all other refills of this medication Calcium 600-D3 Plus (mag-zinc) 600 mg calcium-800 unit-50 mg tablet RxNorm: 1 Tablet(s) PO daily take an additonal tablet for itching. 019 2018 Inactive This refill negates all other refills of this medication albuterol sulfate 2.5 mg/3 mL (0.083 %) solution for nebulization RxNorm: 854661 1 Vial INH QID 2018 Inactive 60/box. This refill negates all other refills of this medication. Please do not fill early. Please do not auto refill. lisinopril 2.5 mg tablet RxNorm: 768510 1 Tablet(s) PO daily 019 2019 Inactive gabapentin 300 mg capsule RxNorm: 832830 1 Capsule(s) PO TID 019 2019 Inactive atorvastatin 20 mg tablet RxNorm: 482345 1 Tablet(s) PO QHS 019 2018 Inactive This refill negates all other refills of this medication TRUEplus Lancets 30 gauge RxNorm: 1 Lancets Miscellaneous QAM 019 2018 Inactive 100/box gabapentin 300 mg capsule RxNorm: 144813 1 Capsule(s) PO TID 019 2018 Inactive Flintstones Complete (iron) 18 mg iron chewable tablet RxNorm: 1 Tablet(s) PO daily 019 2021 Inactive This refill negates all other refills of this medication gabapentin 300 mg capsule RxNorm: 729349 1 Capsule(s) PO TID as needed 019 2018 Inactive True Metrix Glucose Test Strip RxNorm: 1 Test Strips Miscellaneous QAM 2018 Inactive 100/container Alcohol Prep Pads RxNorm: 947549 1 Patch TOP QAM 019 2018 Inactive TRUEplus Lancets 30 gauge RxNorm: 1 Lancets Miscellaneous QAM 019 2018 Inactive 100/box lisinopril 2.5 mg tablet RxNorm: 078423 1 Tablet(s) PO daily 2018 Inactive ranitidine 150 mg tablet RxNorm: 848707 1 Tablet(s) PO BID 2018 Inactive This refill negates all other refills of this medication albuterol sulfate 2.5 mg/3 mL (0.083 %) solution for nebulization RxNorm: 230911 1 Vial INH QID 2018 Inactive 60/box. [...] this medication gabapentin 300 mg capsule RxNorm: 161247 1 Capsule(s) PO TID as needed 019 2018 Inactive atorvastatin 20 mg tablet RxNorm: 123127 1 Tablet(s) PO QHS 019 2018 Inactive This refill negates all other refills of this medication trazodone 50 mg tablet RxNorm: 381630 1 Tablet(s) PO QHS 019 2018 Inactive This refill negates all other refills of this medication Ventolin HFA 90 mcg/actuation aerosol inhaler RxNorm: 977982 2 Puff(s) INH QID 019 2018 Inactive Please do not fill early. Please do not auto refill. This refill negates all other refills of this medication Calcium 600-D3 Plus 600 mg calcium-800 unit-50 mg tablet RxNorm: 1 Tablet(s) PO daily take an additonal tablet for itching. 019 2018 Inactive This refill negates all other refills of this medication Singulair 10 mg tablet RxNorm: 947653 1 Tablet(s) PO daily 019 2018 Inactive This refill negates all other refills of this medication buspirone 7.5 mg tablet RxNorm: 462792 1 Tablet(s) PO BID 019 2018 Inactive This refill negates all other refills of this medication diclofenac sodium 75 mg tablet,delayed release RxNorm: 069893 1 Tablet(s) PO BID 019 2018 Inactive This refill negates all other refills of this medication hydrochlorothiazide 12.5 mg tablet RxNorm: 286389 1 Tablet(s) PO QAM 019 2018 Inactive metoprolol succinate ER 50 mg tablet,extended release 24 hr RxNorm: 695536 1 Tablet(s) PO daily 019 2018 Inactive This refill negates all other refills of this medication levothyroxine 50 mcg tablet RxNorm: 204874 1 Tablet(s) PO daily 019 2018 Inactive This refill negates all other refills of this medication cetirizine 10 mg tablet RxNorm: 8932695 1 Tablet(s) PO daily 019 2018 Inactive This refill negates all other refills of this medication. Please do not auto refill Flintstones Complete (iron) 18 mg iron chewable tablet RxNorm: 1 Tablet(s) PO daily 019 2018 Inactive This refill negates all other refills of this medication buspirone 7.5 mg tablet RxNorm: 676773 1 Tablet(s) PO BID 2018 Inactive cetirizine 10 mg tablet RxNorm: 4747455 1 Tablet(s) PO daily 2018 Inactive Guaiasorb DM 10 mg-100 mg/5 mL oral liquid RxNorm: 865965 10 Milliliter(s) PO As needed every 4 hr 2018 Inactive Vicks Vaporub 4.7 %-1.2 %-2.6 % topical ointment RxNorm: 3213241 1 Application TOP TID 2018 Inactive levmetamfetamine 50 mg nasal inhaler RxNorm: 1 Unit(s) NASAL Q3-4H 2017 Inactive sertraline 50 mg tablet RxNorm: 079648 1 Tablet(s) PO daily 2018 Inactive Please note dose trazodone 50 mg tablet RxNorm: 526983 1 Tablet(s) PO QHS 2018 Inactive sertraline 50 mg tablet RxNorm: 132185 1 Tablet(s) PO daily 2017 Inactive amoxicillin 500 mg tablet RxNorm: 368722 1 Tablet(s) PO Q12H 2017 Inactive albuterol sulfate 2.5 mg/3 mL (0.083 %) solution for nebulization RxNorm: 271874 1 Vial INH QID 2018 Inactive 60/box. Please do not fill early. Please do not auto refill. Prozac 10 mg capsule RxNorm: 879302 1 Capsule(s) PO daily 2017 Inactive buspirone 7.5 mg tablet RxNorm: 549255 1 Tablet(s) PO BID 2018 Inactive gabapentin 300 mg capsule RxNorm: 536414 1 Capsule(s) PO TID as needed 2018 Inactive hydrochlorothiazide 12.5 mg tablet RxNorm: 909243 1 Tablet(s) PO QAM 018 2018 Inactive ranitidine 150 mg tablet RxNorm: 062686 1 Tablet(s) PO BID 018 2018 Inactive Macrobid 100 mg capsule RxNorm: 232967 1 Capsule(s) PO Q12H 018 2017 Inactive Singulair 10 mg tablet RxNorm: 515890 1 Tablet(s) PO daily 018 2018 Inactive Ventolin HFA 90 mcg/actuation aerosol inhaler RxNorm: 6342248 2 Puff(s) INH QID 018 2018 Inactive Singulair 10 mg tablet RxNorm: 369377 1 Tablet(s) PO daily 018 2017 Inactive buspirone 7.5 mg tablet RxNorm: 435601 1 Tablet(s) PO BID 018 2017 Inactive Prozac 10 mg capsule RxNorm: 348909 1 Capsule(s) PO daily 018 2017 Inactive diclofenac sodium 75 mg tablet,delayed release RxNorm: 881132 1 Tablet(s) PO BID 018 2017 Inactive lisinopril 2.5 mg tablet RxNorm: 729843 1 Tablet(s) PO daily 018 2017 Inactive Neilmed Pediatric Sinus Rinse Refill packet RxNorm: 1 Unit Dose NASAL PRN 018 2021 Inactive metoprolol succinate ER 50 mg tablet,extended release 24 hr RxNorm: 403717 1 Tablet(s) PO daily 018 2017 Inactive levothyroxine 50 mcg tablet RxNorm: 959508 1 Tablet(s) PO daily 018 2017 Inactive TRUEplus Lancets 30 gauge RxNorm: 1 Lancets Miscellaneous QAM 018 2017 Inactive 100/box Ventolin HFA 90 mcg/actuation aerosol inhaler RxNorm: 997455 2 Puff(s) INH QID 018 2017 Inactive Aleve 220 mg capsule RxNorm: 2784233 1 Capsule(s) PO BID 018 2018 Inactive ranitidine 150 mg tablet RxNorm: 462382 1 Tablet(s) PO BID 018 2017 Inactive gabapentin 300 mg capsule RxNorm: 541671 1 Capsule(s) PO TID as needed 2017 Inactive atorvastatin 20 mg tablet RxNorm: 206850 1 Tablet(s) PO QHS 018 2017 Inactive True Metrix Glucose Test Strip RxNorm: 1 Test Strips Miscellaneous QAM 018 2017 Inactive 50/container Calcium 600-D3 Plus 600 mg calcium-800 unit-50 mg tablet RxNorm: 1 Tablet(s) PO daily take an additonal tablet for itching. 018 2017 Inactive hydrochlorothiazide 12.5 mg tablet RxNorm: 489020 1 Tablet(s) PO QAM 018 2017 Inactive Flintstones Complete (iron) 18 mg iron chewable tablet RxNorm: 1 Tablet(s) PO daily 018 2017 Inactive True Metrix Glucose Meter RxNorm: miscellaneous 019 2018 Inactive sertraline 50 mg tablet RxNorm: 337156 1 Tablet(s) PO daily 020 2019 Inactive loperamide 2 mg tablet RxNorm: 120537 oral 019 2018 Inactive d-mannose oral powder RxNorm: PO 018 2021 Inactive Symbicort 160 mcg-4.5 mcg/actuation HFA aerosol inhaler RxNorm: 6521240 2 Puff(s) INH BID 019 2018 Inactive [...] for depression- NO PLAN NEEDED CPT-4: DPHQUnknown 11/23/2022 Pain Screening CPT-4: PAS 2022 Tobacco Assessment/Screening CPT-4: TCA Hypertension CPT-4: HTN 08/17/2022 [place] [facility] Assessment CPT-4: DSWA 04/02 Patient Health [...] CPT-4: VACP Fall Risk Assessment SNOMED CT: 09196479 4 CPT-4: DFRA 01/13/2021 [place] [facility] Assessment CPT-4: DSWA 12/01 Urinalysis, dip stick CPT-4: 09592 09/24/2020 Patient Health Questionnaire CPT-4: DPHQ Electrocardiogram CPT-4: 32511 05/14/2020 Tobacco Assessment/Screening CPT-4: TCA Fall Risk Assessment SNOMED CT: 11647008 4 CPT-4: DFRA 01/01/2020 Functional Assessment CPT-4: DFA 01/01/2020 [place] Assessment CPT-4: DSWA 11/04 Patient Health Questionnaire CPT-4: DPHQ [place] Assessment CPT-4: DSWA 10/03 Hypertension CPT-4: HTN 10/17/2019 Fall Risk Assessment SNOMED CT: 40058660 4 CPT-4: DFRA 09/19/2019 Functional Assessment CPT-4: DFA 09/19/2019 Urinalysis, dip stick CPT-4: 81372 06/21/2019 Tobacco Assessment/Screening CPT-4: TCA Patient Health Questionnaire CPT-4: DPHQ AHA/REBECCA Classification Assessment CPT-4: DAHA 04/25/2019 Controlled Substance Report CPT-4: CTRSU 04/03 Urinalysis, dip stick CPT-4: 23222 03/28/2019 Urinalysis, dip stick CPT-4: 58679 03/28/2019 M4C-Jvpbfsrckwcbaeh CPT-4: 27901 Unknown X4K-Jsmwmeskkpffvks CPT-4: 46358 Unknown G1Z-Huvstovqtuxljlb CPT-4: 72708 Unknown I6O-Helviyvfvjxnncy CPT-4: 36851 Unknown K7K-Epjpxrawqsjsdcn CPT-4: 99399 Unknown G7X-Joizgtbzecewswh CPT-4: 42510 Unknown J1H-Klqzewemfkjnase CPT-4: 46552 Unknown F4P-Sevwgoeejxbwkod CPT-4: 96307 Unknown Z6Z-Gikureqbyfleqfr CPT-4: 63383 Unknown R5F-Vjsqzfmghrvjrgz CPT-4: 18986 Unknown W3Z-Bpcmgttsmymvvkk CPT-4: 39651 Unknown Gynecology Referral SNOMED CT: 719204109 CPT-4: R14 Unknown Vital Signs Date Vital 11/23/2022 Blood Pressure 1: 100/68 Code: 8480-6 BMI: 54.7 Code: 31348-0 Heart Rate 1: 80 bpm Height: 4'11 Code: 8302-2 Respiratory Rate: 16 bpm SpO2: 98% Temperature: 36.3 (C) / 97.3 (F) Weight: 270 lbs 12 oz Code: 78008-5 Reason For Visit Reason For Visit Effective Dates Notes gastroesophageal reflux disease 11/23/2022 diabetes mellitus 11/23/2022 hypertension 11/23/2022 depression 11/23/2022 Interim health update 11/23/2022 Encounters Encounter Performer Location Location Address Codes [place] e ([id number]) Home or Residence Visit Est Pt - Moderate Level, 40 mins Diagnosis: GERD (gastroesophageal reflux disease)[ICD10: K21.9] Diagnosis: Type 2 diabetes mellitus with peripheral neuropathy[ICD10: E11.42] Diagnosis: Hypertensive heart disease[ICD10: I11.9] Diagnosis: Major depression, recurrent[ICD10: F33.9] Anna Culver [place] [facility] [address] [place] [address] CPT-4: 67814 11/23/2022 Plan of Care Planned Activity Notes [...] min. < 89% SpO2 continue with [facility] Josh Simon MD G47.33 Obstructive sleep apnea (adult), J45.909 Asthma breathing stable, continue utilization of Symbicort, albuterol via neb. or MDI q 4 hrs. prn dyspnea, CPAP use continues nightly continue with Business Unit Leader Jose BOWMAN K21.9 GERD (gastroesophageal reflux disease) [...] gabapentin continue with Kerrie Pandya OD at [facility] (06/30/21) F33.9-296.30 Major depression, recurrent 11/23/2021 PHQ 9 Score 0 continue taking sertraline, buspirone Rexulti continue with [facility] in [place] canceled visit this month, next December 2021 [...] 01/05/21 urinary stimulator implant continue with Urologist 11/23/2022 Patient Education: Depression Completed 11/23/2022 Patient Education: Diabetes Complete d 11/23/2022 Patient Education: Patient Medication Summary Completed 11/23/2022 Patient Education: Hypertension Completed 11/23/2022 Patient Education: Obesity Completed 11/23/2022 Appointment: Anna Culver WPtel: [address] [place] [address] E410 2022 Appointment: Anna Culver WPtel: [address] [place] [address] E410 08/17/2022 Appointment: Anna Culver WPtel: [address] [place] [address] E410 06/23/2022 Appointment: Chivo Bishop WPtel: [address] [place] [address] E410 04/19/2022 Appointment: Chivo Bishop WPtel: [address] [place] [address] E410 02/11/2022 Appointment: Mikey Nair WPtel: [facility] [id number] E410 12/03/2021 Appointment: Chivo Bishop WPtel: [address] [place] [address] E410 11/02/2021 Appointment: Chivo Bishop WPtel: [address] [place] [address] E410 10/07/2021 Appointment: Chivo Bishop WPtel: [address] [place] [address] ETV 09/10/2021 Appointment: Chivo Bishop WPtel: [address] [place] [address] ETV 08/13/2021 Appointment: Chivo Bishop WPtel: [address] [place] [address] ETV 07/06/2021 Appointment: Chivo Bishop WPtel: [address] [place] [address] PHTV 06/10/2021 Appointment: Anna Culver WPtel: [address] [place] [address] ETV 06/02/2021 Appointment: Chivo Bishop WPtel: [address] [place] [address] ETV 05/20/2021 Appointment: Anna Culver WPtel: [address] [place] [address] ETV 04/28/2021 Appointment: Chivo Bishop WPtel: [address] [place] [address] ETV 04/15/2021 Appointment: Anna Culver WPtel: [address] [place] [address] E410 04/01/2021 Appointment: Anna Culver WPtel: [id number] [place] [address] ETV 03/24/2021 Appointment: Anna Culver WPtel: [address] [place] [address] ETV 03/13/2021 Appointment: Anna Culver WPtel: [address] [place] [address] E410 02/11/2021 Appointment: Chivo Bishop WPtel: [address] [place] [address] E410 01/29/2021 Appointment: Anna Culver WPtel: [address] [place] [address] ETV 01/13/2021 Appointment: Anna Culver WPtel: [address] [place] [address] E410 12/17/2020 Appointment: Chivo Bishop WPtel: [address] [place] [address] ETV 11/28/2020 Appointment: Anna Culver WPtel: [address] [place] [address] ETV 11/24/2020 Appointment: Anna Culver WPtel: [address] [place] [address] E410 10/29/2020 Appointment: Anna Culver WPtel: [address] [place] [address] E410 09/24/2020 Appointment: Anna Culver WPtel: [address] [place] [address] ETV 08/26/2020 Appointment: Anna Culver WPtel: [address] [place] [address] ETV 08/19/2020 Appointment: Anna Culver WPtel: [id number] [place] [address] ETV 07/22/2020 Appointment: Anna Culver WPtel: [address] [place] [address] ETV 07/08/2020 Appointment: Gianna Birmingham: [address] [facility] 100 [id number] [place] ECHO 07/02/2020 Appointment: Anna Culver WPtel: [address] [place] [address] E452 06/11/2020 Appointment: Anna Culver WPtel: [address] [place] [address] E452 05/14/2020 Appointment: Anna Culver WPtel: [address] [place] [address] E452 04/17/2020 Appointment: Anna Culver WPtel: [address] [place] [address] E452 03/21/2020 Appointment: Anna Culver WPtel: [address] [place] [address] E452 02/14/2020 Appointment: Anna Culver WPtel: [address] [place] [address] E452 01/24/2020 Appointment: Anna Culver WPtel: [address] [place] [address] E452 01/01/2020 Appointment: Anna Culver WPtel: [address] [place] [address] E452 11/28/2019 Appointment: Anna Culver WPtel: [address] [place] [address] E452 10/17/2019 Appointment: Anna Culver WPtel: [address] [place] [address] E452 09/19/2019 Appointment: Sudha Hernadez WPtel: [address] [facility] [id number] E452 07/04/2019 Appointment: Sudha Hernadez WPtel: [address] [facility] [id number] E452 06/21/2019 Appointment: Sandip Charlene WPtel: [address] [place] [address] [id number] E452 05/24/2019 Appointment: Mallory Delgado E452 04/27/2019 Appointment: Charlene Oropeza WPtel: [address] [place] [address] [id number] E452 04/25/2019 Appointment: Rasta Palafox WPtel: [address] [place] [address] [id number] E452 03/28/2019 Appointment: Rasta Palafox WPtel: [address] [place] [address] [id number] E452 02/14/2019 Appointment: Rasta Palafox WPtel: [address] [facility] [id number] E452 01/31/2019 Appointment: Rasta Palafox WPtel: [address] [place] [address] [id number] E420 12/27/2018 Referral: Pending Gynecology Referral Information Referral Processed Referral: Pending Pulmonology Referral Information Referral Processed Referral: Pending Psychiatry Referral Information Referral Initiated Referral: Pending Respiratory Services Referral Information Referral Initiated Referral: Pending Ophthalmology Referral Information Referral Initiated Referral: [facility] WPtel: [address] Fitness Center Attendant placed a call out to the patient to notify her that it has been recommended that she be seen by a urologist. Patient agreed to be seen, does not have a provider of choice and no transportation issues. Fitness Center Attendant faxed referral and clinical notes to [facility] in [place], [place] near the patient's home. Patient to [...] seen and prefers a provider in the [place] or [place] area. Fitness Center Attendant placed a call out to everyone listed in the area and the only location that was able to accept the patient's insurance was [place] [address] [place] [address] and spoke with Maylin. Maylin asked that the patient's referral, face sheet and visit notes be faxed to . Fitness Center Attendant faxed over requested documents. Patient appointment confirmation letter generated and mailed to her home address. Patient to call to schedule an appointment. Processed Referral: [facility] [place] [facility] WPtel: [address] [place] [address] Patient notified that it has been advised that she be seen by Neurology. Patient agreed to be seen and prefers to be seen by a provider in the [place], [place] area. Patient denies any concerns with transportation, and prefers to schedule her own appointment. Fitness Center Attendant placed a call out to [facility] [...] min. < 89% SpO2; continue with [facility] Josh Simon MD; G47.33 Obstructive sleep apnea (adult), J45.909 Asthma breathing stable, continue utilization of Symbicort, albuterol via neb. or MDI q 4 hrs. prn dyspnea, CPAP use continues nightly continue with Business Unit Leader Jose BOWMAN; K21.9 GERD (gastroesophageal reflux disease) [...] gabapentin; continue with Kerrie Pandya OD at [facility] (06/30/21); F33.9-296.30 Major depression, recurrent 11/23/2021 PHQ 9 Score 0 continue taking sertraline, buspirone; Rexulti continue with [facility] in [place]; canceled visit this month, next December 2021 E78.2 Hyperlipidemia, mixed patient has re-started atorvastatin continue Mediterranean style eating; E03.9 Hypothyroidism 06/23/2022 TSH 2.130, continue levothyroxine; E55.9 Vitamin D deficiency continue cholecalciferol; R55 Syncope and collapse, Z84.89 Family history of seizures continue with [facility] N39.46 Mixed incontinence, R33.9 Urinary retention with incomplete bladder emptying; Z98.890-V45.89 History of bladder surgery continue Myrbetriq qd; ongoing use of use of incontinence supplies; 01/05/21 urinary stimulator implant continue with Urologist; 11/23/2022 Medical Equipment No Medical Equipment data Advance Directives No Advance Directive data
--- OUTSIDE RECORDS SUMMARY | 2023-12-07 02:23 | XMS_ITS | CCD ---
Author Name Leena Culver NP Address [address] [place] [address] [address] [place] [address] Phone Organization [facility] Phone Care Team Providers Care Stage Settings Painter Name Role Phone Anna Culver NP Primary Care Provider Unav ailable Unavailable Chronic Care Management Unavaila ble Summary Purpose DataExchange Insurance Providers Payer name Policy type / Coverage type Covered democrat ID Effective Begin Date Effective End Date SUKI MAYO [id number] Unknown Unknown Family history Mother Diagnosis Age [...] Unknown Disability 05/31/[address]: 077196793 Has never s moked or chewed tobacco 05/31/[address]: 719187843 Never drinks alco hol 05/31/2018 Has the patient ever used illegal drugs? Unknown Has never used illegal drugs 05/31/2018 DNR Order/ Advanced Directive Unknown Full Code 05/31/2018 Allergies, Adverse Reactions, Alerts Substance Reaction Codes Entered Date Inactivated Date Status OxyContin itch, RxNorm: 059907 01/13/2021 No Inactive Da te Active *No [...] ICD-10: E78. 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 long-term (current) use of non-steroidal anti-inflammatories (NSAID) [...] R51 ICD-9: 784.0 10/03/2018 Inactive Other buttermaker (current) dr sharma therapy ICD-10: Z79.899 ICD-9: V58.69 04/25/2019 Inactive Type 2 diabetes mellitus wit hout complications ICD-10: E11.9 ICD-9: 250.00 10/03/2018 Inactive Wheezing ICD-10: R06.2 ICD-9: 786.07 08/08/2018 Inactive Abnormal urine finding ICD-10: R82.90 ICD-9: 791.9 09/24/2020 Resolved Abrasion of toe ICD-10: S90.416A ICD-9: 917.0 02/14/2020 Resolved [place] [facility] ICD-10: H10.029 ICD-9: 372.03 12/29/2019 Resolved [...] Fill Instructions Macrobid 100 mg capsule RxNorm: 475446 1 Capsule(s) Oral every 12 hours with food 023 2022 Inactive omeprazole 40 mg capsule,delayed release RxNorm: 611137 Take 1 Capsule(s) Oral every night at bedtime 023 2022 Inactive trazodone 50 mg tablet RxNorm: 844336 Administer 1 Tablet(s) Oral every night at bedtime 023 No Stop Date Active cholecalciferol (vitamin D3) 50 mcg (2,000 unit) tablet RxNorm: 908087 Take 1 Tablet(s) Oral every day 023 2023 Active Ozempic 1 mg/dose (4 mg/3 mL) subcutaneous pen injector RxNorm: 2014553 USE 1 UNIT DOSE SUBCUTANEOUSLY ON TUE OF EACH WEEK 023 2022 Inactive lisinopril 2.5 mg tablet RxNorm: 579167 Take 1 Tablet(s) Oral every day 023 2022 Inactive Msg From [facility]: Dr. Zapata Requested Ozempic 1 mg/dose (4 mg/3 mL) subcutaneous pen injector RxNorm: 1253642 USE 1 UNIT DOSE SUBCUTANEOUSLY ON TUE OF EACH WEEK 023 2022 Inactive omeprazole 40 mg capsule,delayed release RxNorm: 090368 Take 1 Capsule(s) Oral every night at bedtime 023 2022 Inactive gabapentin 300 mg capsule RxNorm: 848717 Take 1 Capsule(s) Oral three times a day 023 2022 Inactive montelukast 10 mg tablet RxNorm: 259322 Take 1 Tablet(s) Oral every day 023 2022 Inactive omeprazole 20 mg capsule,delayed release RxNorm: 125973 Take 1 Capsule(s) Oral every evening 022 2022 Inactive Alcohol Prep Pads RxNorm: 213243 USE EACH MORNING 022 2021 Inactive E11.42 clotrimazole 1 % topical cream RxNorm: 830112 Apply 1 Application Topical two times a day as needed apply to affected area(s) twice daily until healed 022 2021 Inactive Victoza 2-Sebastián 0.6 mg/0.1 mL (18 mg/3 mL) subcutaneous pen injector RxNorm: 461354 Inject 0.6-1.8 Milligram(s) Subcutaneous once a week Inject 0.6mg/0.1ml week one, 1.2mg/0.2ml week two, 1.8/0.3ml weekly thereafter 022 2021 Inactive ibuprofen 800 mg tablet RxNorm: 899705 Take 1 Tablet(s) Oral Q8H as needed for pain take with food No Stop Date Active Ozempic 1 mg/dose (4 mg/3 mL) subcutaneous pen injector RxNorm: 3449646 Take 1 Unit Dose Subcutaneous QWeek Tuesday2021 Inactive lisinopril 2.5 mg tablet RxNorm: 284837 Take 1 Tablet(s) Oral every day 2021 Inactive lisinopril 2.5 mg tablet RxNorm: 059724 Take 1 Tablet(s) Oral every day 2022 Inactive hydrochlorothiazide 25 mg tablet RxNorm: 373418 Take 1 Tablet(s) Oral every day 2021 Inactive Ozempic 1 mg/dose (4 mg/3 mL) subcutaneous pen injector RxNorm: 0268650 Take 1 Unit Dose Subcutaneous QWeek 2021 Inactive famotidine 20 mg tablet RxNorm: 102833 Take 1 Tablet(s) Oral every morning 2021 Inactive levothyroxine 50 mcg tablet RxNorm: 683180 Take 1 Tablet(s) Oral every day 2021 Inactive atorvastatin 20 mg tablet RxNorm: 104599 Take 1 Tablet(s) Oral every night at bedtime 2021 Inactive Cleocin T 1 % lotion RxNorm: 824277 Take 2 Gram(s) Topical every day 2021 Inactive Cleocin T 1 % lotion RxNorm: 368138 Take 2 Gram(s) Topical every day 022 2021 Inactive Ozempic 1 mg/dose (4 mg/3 mL) subcutaneous pen injector RxNorm: 2885855 Take 1 Unit Dose Subcutaneous QWeek 022 2021 Inactive Ozempic 0.25 mg or 0.5 mg (2 mg/1.5 mL) subcutaneous pen injector RxNorm: 1146132 INJECT 0.5 MGS SUBCUTANEOUSLY EVERY WEEK 2021 Inactive omeprazole 20 mg capsule,delayed release RxNorm: 125308 Take 1 Capsule(s) Oral every evening 2021 Inactive levothyroxine 50 mcg tablet RxNorm: 451862 Take 1 Tablet(s) Oral every day 2021 Inactive atorvastatin 20 mg tablet RxNorm: 585196 Take 1 Tablet(s) Oral every night at bedtime 2021 Inactive This refill negates all other refills of this medication lisinopril 2.5 mg tablet RxNorm: 781062 Take 1 Tablet(s) Oral every day 022 2021 Inactive gabapentin 300 mg capsule RxNorm: 841747 Take 1 Capsule(s) Oral three times a day 2021 Inactive montelukast 10 mg tablet RxNorm: 030587 Take 1 Tablet(s) Oral every day 2021 Inactive Myrbetriq 50 mg tablet,extended release RxNorm: 1311739 1 Tablet(s) Oral every day No Stop Date Active cholecalciferol (vitamin D3) 50 mcg (2,000 unit) tablet RxNorm: 834415 Take 1 Tablet(s) Oral every day 2022 Inactive Ozempic 0.25 mg or 0.5 mg (2 mg/1.5 mL) subcutaneous pen injector RxNorm: 1622022 inject 0.5 milligrams subcutaneously every week 2021 Inactive Ozempic 0.25 mg or 0.5 mg (2 mg/1.5 mL) subcutaneous pen injector RxNorm: 0602952 Take 0.5 Capsule(s) Injection once a week 022 2021 Inactive omeprazole 20 mg capsule,delayed release RxNorm: 851335 Take 1 Capsule(s) Oral every evening 2020 Inactive Ozempic 0.25 mg or 0.5 mg (2 mg/1.5 mL) subcutaneous pen injector RxNorm: 6395791 Take 0.25 Milligram(s) Subcutaneous once a week 2021 Inactive Easy Touch Alcohol Prep Pads RxNorm: 415698 USE DIRECTED EACH MORNING 021 2021 Inactive Probiotic 10 billion cell capsule RxNorm: 0207268 Take 1 Capsule(s) Oral every day 2021 Inactive levothyroxine 50 mcg tablet RxNorm: 863780 Take 1 Tablet(s) Oral every day 2020 Inactive Acid Caustics Loader (famotidine) 20 mg tablet RxNorm: 796156 Take 1 Tablet(s) Oral every morning 2020 Inactive Heartburn Relief (famotidine) 10 mg tablet RxNorm: 384250 Take 1 Tablet(s) Oral QAM 2020 Inactive levothyroxine 50 mcg tablet RxNorm: 565081 Take 1 Tablet(s) Oral QD 2020 Inactive Singulair 10 mg tablet RxNorm: 522382 TAKE (1) TABLET BY MOUTH DAILY 2020 Inactive metformin 1,000 mg tablet RxNorm: 202773 1 Tablet(s) Oral two times a day 2021 Inactive lisinopril 2.5 mg tablet RxNorm: 757429 Take 1 Tablet(s) Oral every day 2020 Inactive hydrochlorothiazide 25 mg tablet RxNorm: 090507 Take 1 Tablet(s) Oral every day 021 2020 Inactive ondansetron 4 mg disintegrating tablet RxNorm: 421496 1 Tablet(s) Oral two times a day 021 2020 Inactive Sudafed 12 Hour 120 mg tablet,extended release RxNorm: 5165417 TAKE 1 TABLET BY MOUTH EVERY 12 HOURS NEEDED 2021 Inactive Heartburn Relief (famotidine) 10 mg tablet RxNorm: 082022 Take 1 Tablet(s) Oral every morning 021 2020 Inactive omeprazole 20 mg capsule,delayed release RxNorm: 274418 1 Capsule(s) Oral every evening 021 2020 Inactive sertraline 100 mg tablet RxNorm: 046644 2 Tablet(s) Oral every day 021 2020 Inactive levothyroxine 50 mcg tablet RxNorm: 780910 TAKE (1) TABLET BY MOUTH DAILY 021 2020 Inactive metformin 500 mg tablet RxNorm: 348549 1 Tablet(s) Oral two times a day take with 500mg to equal 1000mg 021 2020 Inactive gabapentin 300 mg capsule RxNorm: 489480 TAKE 1 CAPSULE BY MOUTH THREE TIMES A DAY 021 2020 Inactive lisinopril 2.5 mg tablet RxNorm: 559811 TAKE 1 TABLET BY MOUTH DAILY 021 2020 Inactive gabapentin 300 mg capsule RxNorm: 995048 TAKE 1 CAPSULE BY MOUTH THREE TIMES A DAY 021 2020 Inactive Singulair 10 mg tablet RxNorm: 598585 TAKE (1) TABLET BY MOUTH DAILY 021 2020 Inactive metformin 1,000 mg tablet RxNorm: 072313 1 Tablet(s) Oral two times a day 021 2020 Inactive atorvastatin 40 mg tablet RxNorm: 652450 1 Tablet(s) Oral every day 021 2020 Inactive omeprazole 20 mg capsule,delayed release RxNorm: 850308 1 Capsule(s) Oral every evening 021 2020 Inactive famotidine 10 mg tablet RxNorm: 337658 1 Tablet(s) Oral every morning 021 2020 Inactive Alcohol Prep Pads RxNorm: 667083 USE EACH MORNING 021 2020 Inactive omeprazole 20 mg capsule,delayed release RxNorm: 519288 1 Capsule(s) Oral two times a day 2021 Inactive omeprazole 20 mg capsule,delayed release RxNorm: 134388 TAKE 1 CAPSULE BY MOUTH EVERY DAY 2021 Inactive Macrobid 100 mg capsule RxNorm: 720682 1 Capsule(s) Oral every 12 hours with food 2020 Inactive omeprazole 20 mg capsule,delayed release RxNorm: 785881 1 Capsule(s) Oral two times a day 2021 Inactive metformin 1,000 mg tablet RxNorm: 712331 1 Tablet(s) Oral two times a day 2020 Inactive start on September 11, 2020 metformin 500 mg tablet RxNorm: 388940 1 Tablet(s) Oral two times a day take with 500mg to equal 1000mg 2019 Inactive gabapentin 300 mg capsule RxNorm: 940710 TAKE 1 CAPSULE BY MOUTH THREE TIMES DAILY 2020 Inactive cetirizine 10 mg tablet RxNorm: 0384406 TAKE (1) TABLET BY MOUTH DAILY 2020 Inactive metformin 500 mg tablet RxNorm: 320900 1 Tablet(s) Oral two times a day 2019 Inactive loperamide 2 mg tablet RxNorm: 478792 1 Tablet(s) Oral as needed take one tablet after each loose stool, maximum of 8 tablets in 24 hours 2021 Inactive Sudafed 12 Hour 120 mg tablet,extended release RxNorm: 6299626 TAKE 1 TABLET BY MOUTH EVERY 12 HOURS NEEDED 2019 Inactive hydrochlorothiazide 25 mg tablet RxNorm: 114558 TAKE (1) TABLET BY MOUTH EVERY DAY 2019 Inactive omeprazole 20 mg capsule,delayed release RxNorm: 569841 TAKE 1 CAPSULE BY MOUTH EVERY DAY 2020 Inactive metformin 500 mg tablet RxNorm: 269539 1 Tablet(s) Oral every day 2019 Inactive True Metrix Glucose Test Strip RxNorm: 1 Test Strips Miscellaneous two times a day as needed No Stop Date Active metformin 500 mg tablet RxNorm: 653717 1 Tablet(s) Oral every day 2019 Inactive diclofenac sodium 75 mg tablet,delayed release RxNorm: 827720 1 Tablet(s) PO BID 2021 Inactive This refill negates all other refills of this medication Sudafed 12 Hour 120 mg tablet,extended release RxNorm: 3517212 TAKE 1 TABLET BY MOUTH EVERY 12 HOURS NEEDED 2019 Inactive True Metrix Glucose Test Strip RxNorm: 1 Test Strips Miscellaneous every morning 020 2019 Inactive 100/container True Metrix Glucose Test Strip RxNorm: 1 Test Strips Miscellaneous QAM 020 2019 Inactive 100/container loperamide 2 mg tablet RxNorm: 157462 1 Tablet(s) Oral as needed take one tablet after each loose stool, maximum of 8 tablets in 24 hours 2019 Inactive cetirizine 10 mg tablet RxNorm: 2792764 1 Tablet(s) PO daily 2019 Inactive loperamide 2 mg tablet RxNorm: 621106 1 Tablet(s) Oral as needed take one tablet after each loose stool, maximum of 8 tablets in 24 hours 2019 Inactive quetiapine 100 mg tablet RxNorm: 353086 1 Tablet(s) Oral every night at bedtime 2019 Inactive levothyroxine 50 mcg tablet RxNorm: 310231 1 Tablet(s) PO daily 020 2020 Inactive gabapentin 300 mg capsule RxNorm: 808459 1 Capsule(s) PO TID 2019 Inactive levothyroxine 50 mcg tablet RxNorm: 208163 1 Tablet(s) PO daily 020 2019 Inactive lisinopril 2.5 mg tablet RxNorm: 141599 1 Tablet(s) PO daily 2020 Inactive gabapentin 300 mg capsule RxNorm: 467367 1 Capsule(s) PO TID 2019 Inactive cetirizine 10 mg tablet RxNorm: 4337389 1 Tablet(s) PO daily 2019 Inactive Singulair 10 mg tablet RxNorm: 764547 1 Tablet(s) PO daily 2020 Inactive gentamicin 0.3 % eye drops RxNorm: 416844 1 Drop(s) ophthalmic (eye) four times a day 2019 Inactive gentamicin 0.3 % eye drops RxNorm: 001966 1 Drop(s) ophthalmic (eye) four times a day 2019 Inactive gentamicin 0.3 % eye drops RxNorm: 926692 1 Drop(s) ophthalmic (eye) four times a day 2019 Inactive hydrochlorothiazide 25 mg tablet RxNorm: 825825 1 Tablet(s) Oral every day 2019 Inactive Sudafed 12 Hour 120 mg tablet,extended release RxNorm: 5079821 TAKE (1) TABLET BY MOUTH EVERY 12 HOURS NEEDED 2019 Inactive loperamide 2 mg tablet RxNorm: 086726 1 Tablet(s) Oral as needed take one tablet after each loose stool, maximum of 8 tablets in 24 hours 2019 Inactive loperamide 2 mg tablet RxNorm: 581187 1 Tablet(s) Oral as needed take one tablet after each loose stool, maximum of 8 tablets in 24 hours 2019 Inactive atorvastatin 40 mg tablet RxNorm: 808519 1 Tablet(s) Oral every day 2020 Inactive quetiapine 100 mg tablet RxNorm: 259144 1 Tablet(s) Oral every night at bedtime 2019 Inactive sertraline 100 mg tablet RxNorm: 562806 1 Tablet(s) Oral 2019 Inactive omeprazole 20 mg capsule,delayed release RxNorm: 667703 1 Capsule(s) Oral every day 020 2019 Inactive amoxicillin 250 mg capsule RxNorm: 646497 1 Capsule(s) Oral three times a day 2019 Inactive multivitamin with iron-mineral tablet RxNorm: 1 Tablet(s) Oral every day 020 2021 Inactive cetirizine 10 mg tablet RxNorm: 0171099 1 Tablet(s) PO daily 2019 Inactive This refill negates all other refills of this medication. Please do not auto refill Singulair 10 mg tablet RxNorm: 278905 1 Tablet(s) PO daily 2019 Inactive This refill negates all other refills of this medication gabapentin 300 mg capsule RxNorm: 700534 1 Capsule(s) PO TID 2019 Inactive lisinopril 2.5 mg tablet RxNorm: 816284 1 Tablet(s) PO daily 2019 Inactive levothyroxine 50 mcg tablet RxNorm: 036463 1 Tablet(s) PO daily 2019 Inactive This refill negates all other refills of this medication hydrochlorothiazide 25 mg tablet RxNorm: 634805 1 Tablet(s) Oral every day 2019 Inactive fenugreek seed extract 500 mg capsule RxNorm: 1 Capsule(s) Oral three times a day 2021 Inactive Alcohol Prep Pads RxNorm: 405565 1 Patch TOP QAM 020 2020 Inactive loperamide 2 mg tablet RxNorm: 374438 1 Tablet(s) Oral as needed take one [...] 2019 Inactive hydrochlorothiazide 25 mg tablet RxNorm: 247396 1 Tablet(s) Oral every day 019 2019 Inactive Sudafed 12 Hour 120 mg tablet,extended release RxNorm: 1375658 1 Tablet(s) Oral every 12 hours as needed 2018 Inactive omeprazole 20 mg capsule,delayed release RxNorm: 995093 1 Capsule(s) Oral every day 019 2019 Inactive Sudafed 12 Hour 120 mg tablet,extended release RxNorm: 8427852 1 Tablet(s) Oral every 12 hours as needed 2018 Inactive pantoprazole 40 mg tablet,delayed release RxNorm: 031573 1 Tablet(s) Oral every day 019 2018 Inactive discontinue any other H2Blkr. and PPI albuterol sulfate 2.5 mg/3 mL (0.083 %) solution for nebulization RxNorm: 454773 1 Vial Inhalation every four hours as needed as needed for dyspnea 019 2019 Inactive 60/box. This refill negates all other refills of this medication. Please do not fill early. Please do not auto refill. Symbicort 160 mcg-4.5 mcg/actuation HFA aerosol inhaler RxNorm: 5231481 2 Puff(s) INH BID 019 No Stop Date Active Alcohol Prep Pads RxNorm: 859397 1 Patch TOP QAM 019 2019 Inactive Ventolin HFA 90 mcg/actuation aerosol inhaler RxNorm: 031239 2 Puff(s) INH QID 019 2019 Inactive Please do not fill early. Please do not auto refill. This refill negates all other refills of this medication True Metrix Glucose Test Strip RxNorm: 1 Test Strips Miscellaneous QAM 019 2019 Inactive 100/container atorvastatin 40 mg tablet RxNorm: 429689 1 Tablet(s) Oral every day 019 2019 Inactive buspirone 7.5 mg tablet RxNorm: 550024 1 Tablet(s) PO BID 019 2020 Inactive This refill negates all other refills of this medication hydrochlorothiazide 12.5 mg tablet RxNorm: 486366 1 Tablet(s) PO QAM 019 2019 Inactive levmetamfetamine 50 mg nasal inhaler RxNorm: 1 Unit(s) NASAL Q3-4H Do not use more than every 3 hours or 8 times/24hours 019 2021 Inactive Please do not auto refill. This refill negates all other refills of this medication Ventolin HFA 90 mcg/actuation aerosol inhaler RxNorm: 805495 2 Puff(s) INH QID 019 2018 Inactive Please do not fill early. Please do not auto refill. This refill negates all other refills of this medication Singulair 10 mg tablet RxNorm: 753953 1 Tablet(s) PO daily 019 2019 Inactive This refill negates all other refills of this medication cetirizine 10 mg tablet RxNorm: 0981740 1 Tablet(s) PO daily 019 2019 Inactive This refill negates all other refills of this medication. Please do not auto refill levothyroxine 50 mcg tablet RxNorm: 197028 1 Tablet(s) PO daily 019 2019 Inactive This refill negates all other refills of this medication diclofenac sodium 75 mg tablet,delayed release RxNorm: 860505 1 Tablet(s) PO BID 019 2019 Inactive This refill negates all other refills of this medication ranitidine 150 mg tablet RxNorm: 282967 1 Tablet(s) PO BID 019 2018 Inactive This refill negates all other refills of this medication Calcium 600-D3 Plus (mag-zinc) 600 mg calcium-800 unit-50 mg tablet RxNorm: 1 Tablet(s) PO daily take an additonal tablet for itching. 019 2018 Inactive This refill negates all other refills of this medication albuterol sulfate 2.5 mg/3 mL (0.083 %) solution for nebulization RxNorm: 686901 1 Vial INH QID 2018 Inactive 60/box. This refill negates all other refills of this medication. Please do not fill early. Please do not auto refill. lisinopril 2.5 mg tablet RxNorm: 801698 1 Tablet(s) PO daily 2019 Inactive gabapentin 300 mg capsule RxNorm: 315852 1 Capsule(s) PO TID 019 2019 Inactive atorvastatin 20 mg tablet RxNorm: 076710 1 Tablet(s) PO QHS 2018 Inactive This refill negates all other refills of this medication TRUEplus Lancets 30 gauge RxNorm: 1 Lancets Miscellaneous QAM 019 2018 Inactive 100/box gabapentin 300 mg capsule RxNorm: 845024 1 Capsule(s) PO TID 019 2018 Inactive Flintstones Complete (iron) 18 mg iron chewable tablet RxNorm: 1 Tablet(s) PO daily 019 2021 Inactive This refill negates all other refills of this medication gabapentin 300 mg capsule RxNorm: 028632 1 Capsule(s) PO TID as needed 2018 Inactive True Metrix Glucose Test Strip RxNorm: 1 Test Strips Miscellaneous QAM 019 2018 Inactive 100/container Alcohol Prep Pads RxNorm: 964268 1 Patch TOP QAM 019 2018 Inactive TRUEplus Lancets 30 gauge RxNorm: 1 Lancets Miscellaneous QAM 019 2018 Inactive 100/box lisinopril 2.5 mg tablet RxNorm: 358867 1 Tablet(s) PO daily 019 2018 Inactive ranitidine 150 mg tablet RxNorm: 100426 1 Tablet(s) PO BID 019 2018 Inactive This refill negates all other refills of this medication albuterol sulfate 2.5 mg/3 mL (0.083 %) solution for nebulization RxNorm: 917718 1 Vial INH QID 019 2018 Inactive [...] this medication gabapentin 300 mg capsule RxNorm: 668301 1 Capsule(s) PO TID as needed 019 2018 Inactive atorvastatin 20 mg tablet RxNorm: 877862 1 Tablet(s) PO QHS 019 2018 Inactive This refill negates all other refills of this medication trazodone 50 mg tablet RxNorm: 965793 1 Tablet(s) PO QHS 019 2018 Inactive This refill negates all other refills of this medication Ventolin HFA 90 mcg/actuation aerosol inhaler RxNorm: 204188 2 Puff(s) INH QID 019 2018 Inactive Please do not fill early. Please do not auto refill. This refill negates all other refills of this medication Calcium 600-D3 Plus 600 mg calcium-800 unit-50 mg tablet RxNorm: 1 Tablet(s) PO daily take an additonal tablet for itching. 019 2018 Inactive This refill negates all other refills of this medication Singulair 10 mg tablet RxNorm: 750885 1 Tablet(s) PO daily 019 2018 Inactive This refill negates all other refills of this medication buspirone 7.5 mg tablet RxNorm: 425066 1 Tablet(s) PO BID 019 2018 Inactive This refill negates all other refills of this medication diclofenac sodium 75 mg tablet,delayed release RxNorm: 949758 1 Tablet(s) PO BID 019 2018 Inactive This refill negates all other refills of this medication hydrochlorothiazide 12.5 mg tablet RxNorm: 179350 1 Tablet(s) PO QAM 019 2018 Inactive metoprolol succinate ER 50 mg tablet,extended release 24 hr RxNorm: 489192 1 Tablet(s) PO daily 019 2018 Inactive This refill negates all other refills of this medication levothyroxine 50 mcg tablet RxNorm: 755772 1 Tablet(s) PO daily 019 2018 Inactive This refill negates all other refills of this medication cetirizine 10 mg tablet RxNorm: 5394013 1 Tablet(s) PO daily 019 2018 Inactive This refill negates all other refills of this medication. Please do not auto refill Flintstones Complete (iron) 18 mg iron chewable tablet RxNorm: 1 Tablet(s) PO daily 019 2018 Inactive This refill negates all other refills of this medication buspirone 7.5 mg tablet RxNorm: 127245 1 Tablet(s) PO BID 2018 Inactive cetirizine 10 mg tablet RxNorm: 4587106 1 Tablet(s) PO daily 2018 Inactive Guaiasorb DM 10 mg-100 mg/5 mL oral liquid RxNorm: 445472 10 Milliliter(s) PO As needed every 4 hr 2018 Inactive Vicks Vaporub 4.7 %-1.2 %-2.6 % topical ointment RxNorm: 3989361 1 Application TOP TID 018 2018 Inactive levmetamfetamine 50 mg nasal inhaler RxNorm: 1 Unit(s) NASAL Q3-4H 018 2017 Inactive sertraline 50 mg tablet RxNorm: 428735 1 Tablet(s) PO daily 2018 Inactive Please note dose trazodone 50 mg tablet RxNorm: 638809 1 Tablet(s) PO QHS 018 2018 Inactive sertraline 50 mg tablet RxNorm: 244840 1 Tablet(s) PO daily 018 2017 Inactive amoxicillin 500 mg tablet RxNorm: 085649 1 Tablet(s) PO Q12H 2017 Inactive albuterol sulfate 2.5 mg/3 mL (0.083 %) solution for nebulization RxNorm: 936213 1 Vial INH QID 2018 Inactive 60/box. Please do not fill early. Please do not auto refill. Prozac 10 mg capsule RxNorm: 829324 1 Capsule(s) PO daily 018 2017 Inactive buspirone 7.5 mg tablet RxNorm: 107322 1 Tablet(s) PO BID 2018 Inactive gabapentin 300 mg capsule RxNorm: 291432 1 Capsule(s) PO TID as needed 2018 Inactive hydrochlorothiazide 12.5 mg tablet RxNorm: 668740 1 Tablet(s) PO QAM 2018 Inactive ranitidine 150 mg tablet RxNorm: 780060 1 Tablet(s) PO BID 2018 Inactive Macrobid 100 mg capsule RxNorm: 275841 1 Capsule(s) PO Q12H 018 2017 Inactive Singulair 10 mg tablet RxNorm: 177092 1 Tablet(s) PO daily 018 2018 Inactive Ventolin HFA 90 mcg/actuation aerosol inhaler RxNorm: 8889117 2 Puff(s) INH QID 018 2018 Inactive Singulair 10 mg tablet RxNorm: 293464 1 Tablet(s) PO daily 018 2017 Inactive buspirone 7.5 mg tablet RxNorm: 806606 1 Tablet(s) PO BID 018 2017 Inactive Prozac 10 mg capsule RxNorm: 427527 1 Capsule(s) PO daily 018 2017 Inactive diclofenac sodium 75 mg tablet,delayed release RxNorm: 331217 1 Tablet(s) PO BID 018 2017 Inactive lisinopril 2.5 mg tablet RxNorm: 321638 1 Tablet(s) PO daily 018 2017 Inactive Neilmed Pediatric Sinus Rinse Refill packet RxNorm: 1 Unit Dose NASAL PRN 018 2021 Inactive metoprolol succinate ER 50 mg tablet,extended release 24 hr RxNorm: 125894 1 Tablet(s) PO daily 018 2017 Inactive levothyroxine 50 mcg tablet RxNorm: 393193 1 Tablet(s) PO daily 018 2017 Inactive TRUEplus Lancets 30 gauge RxNorm: 1 Lancets Miscellaneous QAM 018 2017 Inactive 100/box Ventolin HFA 90 mcg/actuation aerosol inhaler RxNorm: 916219 2 Puff(s) INH QID 018 2017 Inactive Aleve 220 mg capsule RxNorm: 8980678 1 Capsule(s) PO BID 018 2018 Inactive ranitidine 150 mg tablet RxNorm: 573382 1 Tablet(s) PO BID 018 2017 Inactive gabapentin 300 mg capsule RxNorm: 278936 1 Capsule(s) PO TID as needed 018 2017 Inactive atorvastatin 20 mg tablet RxNorm: 716377 1 Tablet(s) PO QHS 018 2017 Inactive True Metrix Glucose Test Strip RxNorm: 1 Test Strips Miscellaneous QAM 018 2017 Inactive 50/container Calcium 600-D3 Plus 600 mg calcium-800 unit-50 mg tablet RxNorm: 1 Tablet(s) PO daily take an additonal tablet for itching. 018 2017 Inactive hydrochlorothiazide 12.5 mg tablet RxNorm: 774749 1 Tablet(s) PO QAM 018 2017 Inactive Flintstones Complete (iron) 18 mg iron chewable tablet RxNorm: 1 Tablet(s) PO daily 018 2017 Inactive True Metrix Glucose Meter RxNorm: miscellaneous 019 2018 Inactive sertraline 50 mg tablet RxNorm: 550446 1 Tablet(s) PO daily 020 2019 Inactive loperamide 2 mg tablet RxNorm: 055341 oral 019 2018 Inactive d-mannose oral powder RxNorm: PO 018 2021 Inactive Symbicort 160 mcg-4.5 mcg/actuation HFA aerosol inhaler RxNorm: 8518676 2 Puff(s) INH BID 019 2018 Inactive Medication Administered No Medication Administered data Procedures Procedure Codes Date [place] Assessment CPT-4: DSWA 01/02 Fall Risk Assessment CPT-4: DFRA 01/27/2023 Hypertension CPT-4: HTN 01/27/2023 Patient Health Questionnaire CPT-4: DPHQ Pain Screening CPT-4: PAS 2022 Tobacco Assessment/Screening CPT-4: TCA Hypertension CPT-4: HTN 08/17/[address]22 [place] Assessment CPT-4: DSWA 04/02 Patient Health [...] CPT-4: VACP Fall Risk Assessment SNOMED CT: 11974777 4 CPT-4: DFRA 01/13/2021 [place] Assessment CPT-4: DSWA 12/01 Urinalysis, dip stick CPT-4: 26514 09/24/2020 Patient Health Questionnaire CPT-4: DPHQ Electrocardiogram CPT-4: 45832 05/14/2020 Tobacco Assessment/Screening CPT-4: TCA Fall Risk Assessment SNOMED CT: 40615690 4 CPT-4: DFRA 01/01/2020 Functional Assessment CPT-4: DFA 01/01/2020 [place] Assessment CPT-4: DSWA 11/04 Patient Health Questionnaire CPT-4: DPHQ [place] Assessment CPT-4: DSWA 10/03 Hypertension CPT-4: HTN 10/17/2019 Fall Risk Assessment SNOMED CT: 54346584 4 CPT-4: DFRA 09/19/2019 Functional Assessment CPT-4: DFA 09/19/2019 Urinalysis, dip stick CPT-4: 06006 06/21/2019 Tobacco Assessment/Screening CPT-4: TCA Patient Health Questionnaire CPT-4: DPHQ AHA/REBECCA Classification Assessment CPT-4: DAHA 04/25/2019 Controlled Substance Report CPT-4: CTRSU 04/03 Urinalysis, dip stick CPT-4: 77645 03/28/2019 Urinalysis, dip stick CPT-4: 84365 03/28/2019 X3O-Bgslyvsjlfutdxt CPT-4: 95729 Unknown K9B-Pqxsltoufdktjyi CPT-4: 80989 Unknown O6G-Shvucekungrkckg CPT-4: 85869 Unknown P2G-Ltlidttgrdytimg CPT-4: 66200 Unknown V4V-Lgujhigtsktitpy CPT-4: 53689 Unknown C2W-Gaudmfiiuickeic CPT-4: 39034 Unknown W1G-Nxxqgfaszcrinbh CPT-4: 25971 Unknown M8M-Mrlvrukemfhrtno CPT-4: 82925 Unknown Y1Q-Pgenoixrqsjgsmc CPT-4: 62657 Unknown T0H-Rzmjvvtlmtenuuh CPT-4: 72878 Unknown X2X-Fbtjphbxnovaycy CPT-4: 55525 Unknown R4K-Cviqkubyhnvrgqr CPT-4: 56848 Unknown Gynecology Referral SNOMED CT: 377564395 CPT-4: R14 Unknown Reason For Visit No Reason For Visit data Plan of Care Planned Activity Notes Codes Status Date Patient Education: Patient Medication Summary Completed 03/31/2023 Appointment: Anna Culver WPtel: [address] [place] [address] E410 01/27/2023 Appointment: Anna Culver WPtel: [address] [place] [address] E410 11/23/2022 Appointment: Anna Culver WPtel: [address] [place] [address] E410 2022 Appointment: Anna Culver WPtel: [address] [place] [address] E410 08/17/2022 Appointment: Anna Culver WPtel: [address] [place] [address] E410 06/23/2022 Appointment: Chivo Bishop WPtel: [address] [place] [address] E410 04/19/2022 Appointment: Chivo Bishop WPtel: [address] [place] [address] E410 02/11/2022 Appointment: Mikey Nair WPtel: [facility] [address] [id number] E410 12/03/2021 Appointment: Chivo Bishop WPtel: [address] [place] [address] E410 11/02/2021 Appointment: Chivo Bishop WPtel: [address] [place] [address] E410 10/07/2021 Appointment: Chivo Bishop WPtel: [address] [place] [address] ETV 09/10/2021 Appointment: Chivo Bishop WPtel: [address] [place] [address] ETV 08/13/2021 Appointment: Chivo Bishop WPtel: [address] [place] [address] ETV 07/06/2021 Appointment: Chivo Bishop WPtel: [address] [place] [address] PHTV 06/10/2021 Appointment: Anna Culver WPtel: [address] [place] [address] ETV 06/02/2021 Appointment: Chivo Bishop WPtel: [address] [place] [address] ETV 05/20/2021 Appointment: Anna Culver WPtel: [address] [place] [address] ETV 04/28/2021 Appointment: Chivo Bishop WPtel: [address] [place] [address] ETV 04/15/2021 Appointment: Anna Culver WPtel: [address] [place] [address] E410 04/01/2021 Appointment: Anna Culver WPtel: [address] [place] [address] ETV 03/24/2021 Appointment: Anna Culver WPtel: [address] [place] [address] ETV 03/13/2021 Appointment: Anna Culver WPtel: [id number] [place] [address] E410 02/11/2021 Appointment: Chivo Bishop WPtel: [address] [place] [address] E410 01/29/2021 Appointment: Anna Culver WPtel: [address] [place] [address] ETV 01/13/2021 Appointment: Anna Culver WPtel: [address] [place] [address] E410 12/17/2020 Appointment: Chivo Bishop WPtel: [address] [place] [address] ETV 11/28/2020 Appointment: Anna Culver WPtel: [address] [place] [address] ETV 11/24/2020 Appointment: Anna Culver WPtel: [address] [place] [address] E410 10/29/2020 Appointment: Anna Culver WPtel: [address] [place] [address] E410 09/24/2020 Appointment: Anna Culver WPtel: [address] [place] [address] ETV 08/26/2020 Appointment: Anna Culver WPtel: [address] [place] [address] ETV 08/19/2020 Appointment: Anna Culver WPtel: [address] [place] [address] ETV 07/22/2020 Appointment: Anna Culver WPtel: [address] [place] [address] ETV 07/08/2020 Appointment: Gianna Birmingham: [address] [facility] [address] [id number] [place] ECHO 07/02/2020 Appointment: Anna Culver WPtel: [id number] [place] [address] E452 06/11/2020 Appointment: Anna Culver WPtel: [address] [place] [address] E452 05/14/2020 Appointment: Anna Culver WPtel: [address] [place] [address] E452 04/17/2020 Appointment: Anna Culver WPtel: [address] [place] [address] E452 03/21/2020 Appointment: Anna Culver WPtel: [address] [place] [address] E452 02/14/2020 Appointment: Anna Culver WPtel: [address] [place] [address] E452 01/24/2020 Appointment: Anna Culver WPtel: [address] [place] [address] E452 01/01/2020 Appointment: Anna Culver WPtel: [address] [place] [address] E452 11/28/2019 Appointment: Anna Culver WPtel: [address] [place] [address] E452 10/17/2019 Appointment: Anna Culver WPtel: [address] [place] [address] E452 09/19/2019 Appointment: Sudha Hernadez WPtel: [address] [facility] [address] [id number] [place] E452 07/04/2019 Appointment: Sudha Hernadez WPtel: [address] [place] [address] [id number] E452 06/21/2019 Appointment: Charlene Oropeza WPtel: [address] [facility] [id number] E452 05/24/2019 Appointment: Bianca Delgadoedo E452 04/27/2019 Appointment: Charlene Oropeza WPtel: [address] [place] [address] [id number] E452 04/25/2019 Appointment: Rasta Palafox WPtel: [address] [place] [address] [id number] E452 03/28/2019 Appointment: Rasta Palafox WPtel: [address] [place] [address] [id number] E452 02/14/2019 Appointment: Rasta Palafox WPtel: [address] [place] [address] [id number] E452 01/31/2019 Appointment: Rasta Palafox WPtel: [address] [place] [address] [id number] E420 12/27/2018 Referral: Pending Gynecology Referral Information Referral Processed Referral: Pending Pulmonolog y Referral Information Referral Processed Referral: Pending Psychiatry Referral Information Referral Initiated Referral: Pending Respirator y Services Referral Information Referral Initiated Referral: Pending Ophthalmology Referral Information Referral Initiated Referral: [facility] WPtel: [address] [facility] [address] [employer] placed a call out to the patient to notify her that it has been recommended that she be seen by a urologist. Patient agreed to be seen, does not have a provider of choice and no transportation issues. [employer] faxed referral and clinical notes to [facility] in [place], [place] near the patient's home. Patient to [...] seen and prefers a provider in the [place] or [place] area. [employer] placed a call out to everyone listed in the area and the only location that was able to accept the patient's insurance was [facility] [place] [address] and spoke with Maylin. Maylin asked that the patient's referral, face sheet and visit notes be faxed to . [employer] faxed over requested documents. Patient appointment confirmation letter generated and mailed to her home address. Patient to call to schedule an appointment. Processed [facility] WPtel: [address] [place] [address] Patient notified that it has been advised that she be seen by Neurology. Patient agreed to be seen and prefers to be seen by a provider in the [place], [place] area. Patient denies any concerns with transportation, and prefers to schedule her own appointment. [employer] placed a call out to [facility] and spoke with Neeraj Mcfarland: who confirmed that their office is able to accept new patients and the patient's insurance. After confirming the providers fax number, commercial underwriter faxed over the patient's referral, and [...]
--- OUTSIDE RECORDS SUMMARY | 2023-12-07 02:23 | XMS_ITS | CCD ---
Author Name Leena Culver NP Address [address] [place] [address] [place] [id number] Phone Organization [facility] Phone Care Team Providers Care Assistant Strength Coach Name Role Phone Anna Culver NP Primary Care Provider Unav ailable Unavailable Chronic Care Management Unavaila ble Summary Purpose DataExchange Insurance Providers Payer name Policy type / Coverage type Covered constitution party ID Effective Begin Date Effective End Date SUKI MAYO [id number] Unknown Unknown Family history Mother Diagnosis Age [...] Unknown Disability 05/31/[address]: 664283603 Has never s moked or chewed tobacco 05/31/[address]: 816806548 Never drinks alco hol 05/31/2018 Has the patient ever used illegal drugs? Unknown Has never used illegal drugs 05/31/2018 DNR Order/ Advanced Directive Unknown Full Code 05/31/2018 Allergies, Adverse Reactions, Alerts Substance Reaction Codes Entered Date Inactivated Date Status OxyContin itch, RxNorm: 717179 01/13/2021 No Inactive Da te Active *No [...] 784.0 10/03/2018 Inactive Other f[facility] (current) dr sharma therapy ICD-10: Z79.899 ICD-9: V58.69 04/25/2019 Inactive Type 2 diabetes mellitus wit hout complications ICD-10: E11.9 ICD-9: 250.00 10/03/2018 Inactive Wheezing ICD-10: R06.2 ICD-9: 786.07 08/08/2018 Inactive Abnormal urine finding ICD-10: R82.90 ICD-9: 791.9 09/24/2020 Resolved Abrasion of toe ICD-10: S90.416A ICD-9: 917.0 02/14/2020 Resolved [place] [facility] ICD-10: H10.029 ICD-9: 372.03 12/29/2019 [...] (4 mg/3 mL) subcutaneous pen injector RxNorm: 2619198 USE 1 UNIT DOSE SUBCUTANEOUSLY ON TUE OF EACH WEEK 023 2022 Inactive trazodone 50 mg tablet RxNorm: 712371 Administer 1 Tablet(s) Oral every night at bedtime 023 No Stop Date Active cholecalciferol (vitamin D3) 50 mcg (2,000 unit) tablet RxNorm: 449030 Take 1 Tablet(s) Oral every day 023 2023 Active lisinopril 2.5 mg tablet RxNorm: 266124 Take 1 Tablet(s) Oral every day 023 2022 Inactive Msg From [facility]: Dr. Zapata Requested Ozempic 1 mg/dose (4 mg/3 mL) subcutaneous pen injector RxNorm: 1449771 USE 1 UNIT DOSE SUBCUTANEOUSLY ON TUE OF EACH WEEK 023 2022 Inactive omeprazole 40 mg capsule,delayed release RxNorm: 416911 Take 1 Capsule(s) Oral every night at bedtime 023 2022 Inactive gabapentin 300 mg capsule RxNorm: 045202 Take 1 Capsule(s) Oral three times a day 023 2022 Inactive montelukast 10 mg tablet RxNorm: 114622 Take 1 Tablet(s) Oral every day 023 2022 Inactive omeprazole 20 mg capsule,delayed release RxNorm: 340215 Take 1 Capsule(s) Oral every evening 022 2022 Inactive Alcohol Prep Pads RxNorm: 215588 USE EACH MORNING 022 2021 Inactive E11.42 clotrimazole 1 % topical cream RxNorm: 105293 Apply 1 Application Topical two times a day as needed apply to affected area(s) twice daily until healed 2021 Inactive Victoza 2-Sebastián 0.6 mg/0.1 mL (18 mg/3 mL) subcutaneous pen injector RxNorm: 890163 Inject 0.6-1.8 Milligram(s) Subcutaneous once a week Inject 0.6mg/0.1ml week one, 1.2mg/0.2ml week two, 1.8/0.3ml weekly thereafter 022 2021 Inactive ibuprofen 800 mg tablet RxNorm: 066656 Take 1 Tablet(s) Oral Q8H as needed for pain take with food No Stop Date Active Ozempic 1 mg/dose (4 mg/3 mL) subcutaneous pen injector RxNorm: 9552006 Take 1 Unit Dose Subcutaneous QWeek Tuesday2021 Inactive lisinopril 2.5 mg tablet RxNorm: 877156 Take 1 Tablet(s) Oral every day 022 2021 Inactive lisinopril 2.5 mg tablet RxNorm: 515329 Take 1 Tablet(s) Oral every day 022 2022 Inactive hydrochlorothiazide 25 mg tablet RxNorm: 920243 Take 1 Tablet(s) Oral every day 022 2021 Inactive Ozempic 1 mg/dose (4 mg/3 mL) subcutaneous pen injector RxNorm: 8035875 Take 1 Unit Dose Subcutaneous QWeek 022 2021 Inactive famotidine 20 mg tablet RxNorm: 936627 Take 1 Tablet(s) Oral every morning 2021 Inactive levothyroxine 50 mcg tablet RxNorm: 236509 Take 1 Tablet(s) Oral every day 022 2021 Inactive atorvastatin 20 mg tablet RxNorm: 421024 Take 1 Tablet(s) Oral every night at bedtime 2021 Inactive Cleocin T 1 % lotion RxNorm: 907927 Take 2 Gram(s) Topical every day 022 2021 Inactive Cleocin T 1 % lotion RxNorm: 442929 Take 2 Gram(s) Topical every day 022 2021 Inactive Ozempic 1 mg/dose (4 mg/3 mL) subcutaneous pen injector RxNorm: 4052116 Take 1 Unit Dose Subcutaneous QWeek 022 2021 Inactive Ozempic 0.25 mg or 0.5 mg (2 mg/1.5 mL) subcutaneous pen injector RxNorm: 0608868 INJECT 0.5 MGS SUBCUTANEOUSLY EVERY WEEK 022 2021 Inactive omeprazole 20 mg capsule,delayed release RxNorm: 546185 Take 1 Capsule(s) Oral every evening 022 2021 Inactive levothyroxine 50 mcg tablet RxNorm: 020928 Take 1 Tablet(s) Oral every day 2021 Inactive atorvastatin 20 mg tablet RxNorm: 099428 Take 1 Tablet(s) Oral every night at bedtime 2021 Inactive This refill negates all other refills of this medication lisinopril 2.5 mg tablet RxNorm: 840675 Take 1 Tablet(s) Oral every day 022 2021 Inactive gabapentin 300 mg capsule RxNorm: 139956 Take 1 Capsule(s) Oral three times a day 022 2021 Inactive montelukast 10 mg tablet RxNorm: 777960 Take 1 Tablet(s) Oral every day 022 2021 Inactive Myrbetriq 50 mg tablet,extended release RxNorm: 2777273 1 Tablet(s) Oral every day No Stop Date Active cholecalciferol (vitamin D3) 50 mcg (2,000 unit) tablet RxNorm: 756172 Take 1 Tablet(s) Oral every day 2022 Inactive Ozempic 0.25 mg or 0.5 mg (2 mg/1.5 mL) subcutaneous pen injector RxNorm: 8136210 inject 0.5 milligrams subcutaneously every week 2021 Inactive Ozempic 0.25 mg or 0.5 mg (2 mg/1.5 mL) subcutaneous pen injector RxNorm: 9074719 Take 0.5 Capsule(s) Injection once a week 022 2021 Inactive omeprazole 20 mg capsule,delayed release RxNorm: 967382 Take 1 Capsule(s) Oral every evening 2020 Inactive Ozempic 0.25 mg or 0.5 mg (2 mg/1.5 mL) subcutaneous pen injector RxNorm: 6615663 Take 0.25 Milligram(s) Subcutaneous once a week 021 2021 Inactive Easy Touch Alcohol Prep Pads RxNorm: 351728 USE DIRECTED EACH MORNING 021 2021 Inactive Probiotic 10 billion cell capsule RxNorm: 9134418 Take 1 Capsule(s) Oral every day 021 2021 Inactive levothyroxine 50 mcg tablet RxNorm: 822382 Take 1 Tablet(s) Oral every day 021 2020 Inactive Acid Weekend Caregiver (famotidine) 20 mg tablet RxNorm: 852291 Take 1 Tablet(s) Oral every morning 2020 Inactive Heartburn Relief (famotidine) 10 mg tablet RxNorm: 453195 Take 1 Tablet(s) Oral QAM 021 2020 Inactive levothyroxine 50 mcg tablet RxNorm: 830859 Take 1 Tablet(s) Oral QD 2020 Inactive Singulair 10 mg tablet RxNorm: 631420 TAKE (1) TABLET BY MOUTH DAILY 2020 Inactive metformin 1,000 mg tablet RxNorm: 787578 1 Tablet(s) Oral two times a day 2021 Inactive lisinopril 2.5 mg tablet RxNorm: 449063 Take 1 Tablet(s) Oral every day 021 2020 Inactive hydrochlorothiazide 25 mg tablet RxNorm: 756170 Take 1 Tablet(s) Oral every day 021 2020 Inactive ondansetron 4 mg disintegrating tablet RxNorm: 143449 1 Tablet(s) Oral two times a day 021 2020 Inactive Sudafed 12 Hour 120 mg tablet,extended release RxNorm: 9557353 TAKE 1 TABLET BY MOUTH EVERY 12 HOURS NEEDED 2021 Inactive Heartburn Relief (famotidine) 10 mg tablet RxNorm: 044061 Take 1 Tablet(s) Oral every morning 021 2020 Inactive omeprazole 20 mg capsule,delayed release RxNorm: 741415 1 Capsule(s) Oral every evening 021 2020 Inactive sertraline 100 mg tablet RxNorm: 637862 2 Tablet(s) Oral every day 021 2020 Inactive levothyroxine 50 mcg tablet RxNorm: 225789 TAKE (1) TABLET BY MOUTH DAILY 021 2020 Inactive metformin 500 mg tablet RxNorm: 852398 1 Tablet(s) Oral two times a day take with 500mg to equal 1000mg 021 2020 Inactive gabapentin 300 mg capsule RxNorm: 343665 TAKE 1 CAPSULE BY MOUTH THREE TIMES A DAY 021 2020 Inactive lisinopril 2.5 mg tablet RxNorm: 141194 TAKE 1 TABLET BY MOUTH DAILY 021 2020 Inactive gabapentin 300 mg capsule RxNorm: 499975 TAKE 1 CAPSULE BY MOUTH THREE TIMES A DAY 021 2020 Inactive Singulair 10 mg tablet RxNorm: 557256 TAKE (1) TABLET BY MOUTH DAILY 021 2020 Inactive metformin 1,000 mg tablet RxNorm: 287565 1 Tablet(s) Oral two times a day 021 2020 Inactive atorvastatin 40 mg tablet RxNorm: 476654 1 Tablet(s) Oral every day 021 2020 Inactive omeprazole 20 mg capsule,delayed release RxNorm: 432607 1 Capsule(s) Oral every evening 021 2020 Inactive famotidine 10 mg tablet RxNorm: 392803 1 Tablet(s) Oral every morning 021 2020 Inactive Alcohol Prep Pads RxNorm: 426815 USE EACH MORNING 021 2020 Inactive omeprazole 20 mg capsule,delayed release RxNorm: 571259 1 Capsule(s) Oral two times a day 021 2021 Inactive omeprazole 20 mg capsule,delayed release RxNorm: 307483 TAKE 1 CAPSULE BY MOUTH EVERY DAY 021 2021 Inactive Macrobid 100 mg capsule RxNorm: 847770 1 Capsule(s) Oral every 12 hours with food 12/302020 Inactive omeprazole 20 mg capsule,delayed release RxNorm: 569077 1 Capsule(s) Oral two times a day 2021 Inactive metformin 1,000 mg tablet RxNorm: 551354 1 Tablet(s) Oral two times a day 2020 Inactive start on September 11, 2020 metformin 500 mg tablet RxNorm: 512215 1 Tablet(s) Oral two times a day take with 500mg to equal 1000mg 2019 Inactive gabapentin 300 mg capsule RxNorm: 141986 TAKE 1 CAPSULE BY MOUTH THREE TIMES DAILY 2020 Inactive cetirizine 10 mg tablet RxNorm: 8661391 TAKE (1) TABLET BY MOUTH DAILY 2020 Inactive metformin 500 mg tablet RxNorm: 712394 1 Tablet(s) Oral two times a day 2019 Inactive loperamide 2 mg tablet RxNorm: 223417 1 Tablet(s) Oral as needed take one tablet after each loose stool, maximum of 8 tablets in 24 hours 2021 Inactive Sudafed 12 Hour 120 mg tablet,extended release RxNorm: 3751128 TAKE 1 TABLET BY MOUTH EVERY 12 HOURS NEEDED 2019 Inactive hydrochlorothiazide 25 mg tablet RxNorm: 855924 TAKE (1) TABLET BY MOUTH EVERY DAY 2019 Inactive omeprazole 20 mg capsule,delayed release RxNorm: 664762 TAKE 1 CAPSULE BY MOUTH EVERY DAY 2020 Inactive metformin 500 mg tablet RxNorm: 562497 1 Tablet(s) Oral every day 2019 Inactive True Metrix Glucose Test Strip RxNorm: 1 Test Strips Miscellaneous two times a day as needed No Stop Date Active metformin 500 mg tablet RxNorm: 097634 1 Tablet(s) Oral every day 2019 Inactive diclofenac sodium 75 mg tablet,delayed release RxNorm: 978963 1 Tablet(s) PO BID 2021 Inactive This refill negates all other refills of this medication Sudafed 12 Hour 120 mg tablet,extended release RxNorm: 2742528 TAKE 1 TABLET BY MOUTH EVERY 12 HOURS NEEDED 020 2019 Inactive True Metrix Glucose Test Strip RxNorm: 1 Test Strips Miscellaneous every morning 020 2019 Inactive 100/container True Metrix Glucose Test Strip RxNorm: 1 Test Strips Miscellaneous QAM 020 2019 Inactive 100/container loperamide 2 mg tablet RxNorm: 501933 1 Tablet(s) Oral as needed take one tablet after each loose stool, maximum of 8 tablets in 24 hours 020 2019 Inactive cetirizine 10 mg tablet RxNorm: 7892116 1 Tablet(s) PO daily 2019 Inactive loperamide 2 mg tablet RxNorm: 589757 1 Tablet(s) Oral as needed take one tablet after each loose stool, maximum of 8 tablets in 24 hours 2019 Inactive quetiapine 100 mg tablet RxNorm: 061139 1 Tablet(s) Oral every night at bedtime 2019 Inactive levothyroxine 50 mcg tablet RxNorm: 042752 1 Tablet(s) PO daily 020 2020 Inactive gabapentin 300 mg capsule RxNorm: 259708 1 Capsule(s) PO TID 2019 Inactive levothyroxine 50 mcg tablet RxNorm: 083472 1 Tablet(s) PO daily 020 2019 Inactive lisinopril 2.5 mg tablet RxNorm: 311993 1 Tablet(s) PO daily 020 2020 Inactive gabapentin 300 mg capsule RxNorm: 849749 1 Capsule(s) PO TID 020 2019 Inactive cetirizine 10 mg tablet RxNorm: 3304421 1 Tablet(s) PO daily 020 2019 Inactive Singulair 10 mg tablet RxNorm: 537083 1 Tablet(s) PO daily 2020 Inactive gentamicin 0.3 % eye drops RxNorm: 438453 1 Drop(s) ophthalmic (eye) four times a day 020 2019 Inactive gentamicin 0.3 % eye drops RxNorm: 658844 1 Drop(s) ophthalmic (eye) four times a day 2019 Inactive gentamicin 0.3 % eye drops RxNorm: 426984 1 Drop(s) ophthalmic (eye) four times a day 2019 Inactive hydrochlorothiazide 25 mg tablet RxNorm: 997765 1 Tablet(s) Oral every day 2019 Inactive Sudafed 12 Hour 120 mg tablet,extended release RxNorm: 6490953 TAKE (1) TABLET BY MOUTH EVERY 12 HOURS NEEDED 2019 Inactive loperamide 2 mg tablet RxNorm: 326297 1 Tablet(s) Oral as needed take one tablet after each loose stool, maximum of 8 tablets in 24 hours 2019 Inactive loperamide 2 mg tablet RxNorm: 902576 1 Tablet(s) Oral as needed take one tablet after each loose stool, maximum of 8 tablets in 24 hours 020 2019 Inactive atorvastatin 40 mg tablet RxNorm: 073972 1 Tablet(s) Oral every day 2020 Inactive quetiapine 100 mg tablet RxNorm: 462735 1 Tablet(s) Oral every night at bedtime 2019 Inactive sertraline 100 mg tablet RxNorm: 079693 1 Tablet(s) Oral 2019 Inactive omeprazole 20 mg capsule,delayed release RxNorm: 768695 1 Capsule(s) Oral every day 020 2019 Inactive amoxicillin 250 mg capsule RxNorm: 408187 1 Capsule(s) Oral three times a day 020 2019 Inactive multivitamin with iron-mineral tablet RxNorm: 1 Tablet(s) Oral every day 2021 Inactive cetirizine 10 mg tablet RxNorm: 2338453 1 Tablet(s) PO daily 2019 Inactive This refill negates all other refills of this medication. Please do not auto refill Singulair 10 mg tablet RxNorm: 409860 1 Tablet(s) PO daily 2019 Inactive This refill negates all other refills of this medication gabapentin 300 mg capsule RxNorm: 513010 1 Capsule(s) PO TID 2019 Inactive lisinopril 2.5 mg tablet RxNorm: 767918 1 Tablet(s) PO daily 2019 Inactive levothyroxine 50 mcg tablet RxNorm: 559659 1 Tablet(s) PO daily 2019 Inactive This refill negates all other refills of this medication hydrochlorothiazide 25 mg tablet RxNorm: 824723 1 Tablet(s) Oral every day 2019 Inactive fenugreek seed extract 500 mg capsule RxNorm: 1 Capsule(s) Oral three times a day 2021 Inactive Alcohol Prep Pads RxNorm: 962467 1 Patch TOP QAM 2020 Inactive loperamide 2 mg tablet RxNorm: 727942 1 Tablet(s) Oral as needed take one [...] 2019 Inactive hydrochlorothiazide 25 mg tablet RxNorm: 697498 1 Tablet(s) Oral every day 019 2019 Inactive Sudafed 12 Hour 120 mg tablet,extended release RxNorm: 1673693 1 Tablet(s) Oral every 12 hours as needed 019 2018 Inactive omeprazole 20 mg capsule,delayed release RxNorm: 362481 1 Capsule(s) Oral every day 019 2019 Inactive Sudafed 12 Hour 120 mg tablet,extended release RxNorm: 6817514 1 Tablet(s) Oral every 12 hours as needed 019 2018 Inactive pantoprazole 40 mg tablet,delayed release RxNorm: 987948 1 Tablet(s) Oral every day 2018 Inactive discontinue any other H2Blkr. and PPI albuterol sulfate 2.5 mg/3 mL (0.083 %) solution for nebulization RxNorm: 726578 1 Vial Inhalation every four hours as needed as needed for dyspnea 2019 Inactive 60/box. This refill negates all other refills of this medication. Please do not fill early. Please do not auto refill. Symbicort 160 mcg-4.5 mcg/actuation HFA aerosol inhaler RxNorm: 0995918 2 Puff(s) INH BID No Stop Date Active Alcohol Prep Pads RxNorm: 244609 1 Patch TOP QAM 2019 Inactive Ventolin HFA 90 mcg/actuation aerosol inhaler RxNorm: 974093 2 Puff(s) INH QID 2019 Inactive Please do not fill early. Please do not auto refill. This refill negates all other refills of this medication True Metrix Glucose Test Strip RxNorm: 1 Test Strips Miscellaneous QAM 019 2019 Inactive 100/container atorvastatin 40 mg tablet RxNorm: 134859 1 Tablet(s) Oral every day 019 2019 Inactive buspirone 7.5 mg tablet RxNorm: 073475 1 Tablet(s) PO BID 019 2020 Inactive This refill negates all other refills of this medication hydrochlorothiazide 12.5 mg tablet RxNorm: 222719 1 Tablet(s) PO QAM 019 2019 Inactive levmetamfetamine 50 mg nasal inhaler RxNorm: 1 Unit(s) NASAL Q3-4H Do not use more than every 3 hours or 8 times/24hours 019 2021 Inactive Please do not auto refill. This refill negates all other refills of this medication Ventolin HFA 90 mcg/actuation aerosol inhaler RxNorm: 348768 2 Puff(s) INH QID 019 2018 Inactive Please do not fill early. Please do not auto refill. This refill negates all other refills of this medication Singulair 10 mg tablet RxNorm: 002955 1 Tablet(s) PO daily 019 2019 Inactive This refill negates all other refills of this medication cetirizine 10 mg tablet RxNorm: 0431019 1 Tablet(s) PO daily 019 2019 Inactive This refill negates all other refills of this medication. Please do not auto refill levothyroxine 50 mcg tablet RxNorm: 879232 1 Tablet(s) PO daily 019 2019 Inactive This refill negates all other refills of this medication diclofenac sodium 75 mg tablet,delayed release RxNorm: 669324 1 Tablet(s) PO BID 019 2019 Inactive This refill negates all other refills of this medication ranitidine 150 mg tablet RxNorm: 067602 1 Tablet(s) PO BID 019 2018 Inactive This refill negates all other refills of this medication Calcium 600-D3 Plus (mag-zinc) 600 mg calcium-800 unit-50 mg tablet RxNorm: 1 Tablet(s) PO daily take an additonal tablet for itching. 019 2018 Inactive This refill negates all other refills of this medication albuterol sulfate 2.5 mg/3 mL (0.083 %) solution for nebulization RxNorm: 037322 1 Vial INH QID 2018 Inactive 60/box. This refill negates all other refills of this medication. Please do not fill early. Please do not auto refill. lisinopril 2.5 mg tablet RxNorm: 239916 1 Tablet(s) PO daily 2019 Inactive gabapentin 300 mg capsule RxNorm: 262717 1 Capsule(s) PO TID 019 2019 Inactive atorvastatin 20 mg tablet RxNorm: 620220 1 Tablet(s) PO QHS 2018 Inactive This refill negates all other refills of this medication TRUEplus Lancets 30 gauge RxNorm: 1 Lancets Miscellaneous QAM 2018 Inactive 100/box gabapentin 300 mg capsule RxNorm: 498394 1 Capsule(s) PO TID 2018 Inactive Flintstones Complete (iron) 18 mg iron chewable tablet RxNorm: 1 Tablet(s) PO daily 019 2021 Inactive This refill negates all other refills of this medication gabapentin 300 mg capsule RxNorm: 174263 1 Capsule(s) PO TID as needed 019 2018 Inactive True Metrix Glucose Test Strip RxNorm: 1 Test Strips Miscellaneous QA 2018 Inactive 100/container Alcohol Prep Pads RxNorm: 497225 1 Patch TOP QAM 2018 Inactive TRUEplus Lancets 30 gauge RxNorm: 1 Lancets Miscellaneous QAM 019 2018 Inactive 100/box lisinopril 2.5 mg tablet RxNorm: 391942 1 Tablet(s) PO daily 019 2018 Inactive ranitidine 150 mg tablet RxNorm: 391746 1 Tablet(s) PO BID 019 2018 Inactive This refill negates all other refills of this medication albuterol sulfate 2.5 mg/3 mL (0.083 %) solution for nebulization RxNorm: 330318 1 Vial INH QID 019 2018 Inactive [...] this medication gabapentin 300 mg capsule RxNorm: 058403 1 Capsule(s) PO TID as needed 019 2018 Inactive atorvastatin 20 mg tablet RxNorm: 666836 1 Tablet(s) PO QHS 019 2018 Inactive This refill negates all other refills of this medication trazodone 50 mg tablet RxNorm: 103195 1 Tablet(s) PO QHS 019 2018 Inactive This refill negates all other refills of this medication Ventolin HFA 90 mcg/actuation aerosol inhaler RxNorm: 521338 2 Puff(s) INH QID 019 2018 Inactive Please do not fill early. Please do not auto refill. This refill negates all other refills of this medication Calcium 600-D3 Plus 600 mg calcium-800 unit-50 mg tablet RxNorm: 1 Tablet(s) PO daily take an additonal tablet for itching. 019 2018 Inactive This refill negates all other refills of this medication Singulair 10 mg tablet RxNorm: 971700 1 Tablet(s) PO daily 019 2018 Inactive This refill negates all other refills of this medication buspirone 7.5 mg tablet RxNorm: 763375 1 Tablet(s) PO BID 019 2018 Inactive This refill negates all other refills of this medication diclofenac sodium 75 mg tablet,delayed release RxNorm: 122190 1 Tablet(s) PO BID 019 2018 Inactive This refill negates all other refills of this medication hydrochlorothiazide 12.5 mg tablet RxNorm: 068825 1 Tablet(s) PO QAM 019 2018 Inactive metoprolol succinate ER 50 mg tablet,extended release 24 hr RxNorm: 965329 1 Tablet(s) PO daily 019 2018 Inactive This refill negates all other refills of this medication levothyroxine 50 mcg tablet RxNorm: 478862 1 Tablet(s) PO daily 019 2018 Inactive This refill negates all other refills of this medication cetirizine 10 mg tablet RxNorm: 4235507 1 Tablet(s) PO daily 019 2018 Inactive This refill negates all other refills of this medication. Please do not auto refill Flintstones Complete (iron) 18 mg iron chewable tablet RxNorm: 1 Tablet(s) PO daily 019 2018 Inactive This refill negates all other refills of this medication buspirone 7.5 mg tablet RxNorm: 747522 1 Tablet(s) PO BID 2018 Inactive cetirizine 10 mg tablet RxNorm: 1060071 1 Tablet(s) PO daily 018 2018 Inactive Guaiasorb DM 10 mg-100 mg/5 mL oral liquid RxNorm: 440356 10 Milliliter(s) PO As needed every 4 hr 2018 Inactive Vicks Vaporub 4.7 %-1.2 %-2.6 % topical ointment RxNorm: 1241757 1 Application TOP TID 2018 Inactive levmetamfetamine 50 mg nasal inhaler RxNorm: 1 Unit(s) NASAL Q3-4H 018 2017 Inactive sertraline 50 mg tablet RxNorm: 390375 1 Tablet(s) PO daily 018 2018 Inactive Please note dose trazodone 50 mg tablet RxNorm: 973810 1 Tablet(s) PO QHS 018 2018 Inactive sertraline 50 mg tablet RxNorm: 279496 1 Tablet(s) PO daily 018 2017 Inactive amoxicillin 500 mg tablet RxNorm: 107740 1 Tablet(s) PO Q12H 018 2017 Inactive albuterol sulfate 2.5 mg/3 mL (0.083 %) solution for nebulization RxNorm: 811619 1 Vial INH QID 018 2018 Inactive 60/box. Please do not fill early. Please do not auto refill. Prozac 10 mg capsule RxNorm: 729928 1 Capsule(s) PO daily 018 2017 Inactive buspirone 7.5 mg tablet RxNorm: 366021 1 Tablet(s) PO BID 018 2018 Inactive gabapentin 300 mg capsule RxNorm: 619987 1 Capsule(s) PO TID as needed 018 2018 Inactive hydrochlorothiazide 12.5 mg tablet RxNorm: 781588 1 Tablet(s) PO QAM 018 2018 Inactive ranitidine 150 mg tablet RxNorm: 469911 1 Tablet(s) PO BID 018 2018 Inactive Macrobid 100 mg capsule RxNorm: 368286 1 Capsule(s) PO Q12H 018 2017 Inactive Singulair 10 mg tablet RxNorm: 067728 1 Tablet(s) PO daily 018 2018 Inactive Ventolin HFA 90 mcg/actuation aerosol inhaler RxNorm: 7806670 2 Puff(s) INH QID 018 2018 Inactive Singulair 10 mg tablet RxNorm: 154766 1 Tablet(s) PO daily 018 2017 Inactive buspirone 7.5 mg tablet RxNorm: 936540 1 Tablet(s) PO BID 018 2017 Inactive Prozac 10 mg capsule RxNorm: 014367 1 Capsule(s) PO daily 018 2017 Inactive diclofenac sodium 75 mg tablet,delayed release RxNorm: 888592 1 Tablet(s) PO BID 018 2017 Inactive lisinopril 2.5 mg tablet RxNorm: 432905 1 Tablet(s) PO daily 018 2017 Inactive Neilmed Pediatric Sinus Rinse Refill packet RxNorm: 1 Unit Dose NASAL PRN 018 2021 Inactive metoprolol succinate ER 50 mg tablet,extended release 24 hr RxNorm: 447138 1 Tablet(s) PO daily 018 2017 Inactive levothyroxine 50 mcg tablet RxNorm: 974928 1 Tablet(s) PO daily 018 2017 Inactive TRUEplus Lancets 30 gauge RxNorm: 1 Lancets Miscellaneous QAM 018 2017 Inactive 100/box Ventolin HFA 90 mcg/actuation aerosol inhaler RxNorm: 375675 2 Puff(s) INH QID 018 2017 Inactive Aleve 220 mg capsule RxNorm: 9811720 1 Capsule(s) PO BID 018 2018 Inactive ranitidine 150 mg tablet RxNorm: 906416 1 Tablet(s) PO BID 018 2017 Inactive gabapentin 300 mg capsule RxNorm: 164420 1 Capsule(s) PO TID as needed 2017 Inactive atorvastatin 20 mg tablet RxNorm: 706677 1 Tablet(s) PO QHS 018 2017 Inactive True Metrix Glucose Test Strip RxNorm: 1 Test Strips Miscellaneous QAM 018 2017 Inactive 50/container Calcium 600-D3 Plus 600 mg calcium-800 unit-50 mg tablet RxNorm: 1 Tablet(s) PO daily take an additonal tablet for itching. 018 2017 Inactive hydrochlorothiazide 12.5 mg tablet RxNorm: 221008 1 Tablet(s) PO QAM 018 2017 Inactive Flintstones Complete (iron) 18 mg iron chewable tablet RxNorm: 1 Tablet(s) PO daily 018 2017 Inactive True Metrix Glucose Meter RxNorm: miscellaneous 019 2018 Inactive sertraline 50 mg tablet RxNorm: 640518 1 Tablet(s) PO daily 020 2019 Inactive loperamide 2 mg tablet RxNorm: 724921 oral 019 2018 Inactive d-mannose oral powder RxNorm: PO 018 2021 Inactive Symbicort 160 mcg-4.5 mcg/actuation HFA aerosol inhaler RxNorm: 2831604 2 Puff(s) INH BID 019 2018 Inactive Medication Administered No Medication Administered data Procedures Procedure Codes Date Clarkson Fany Assessment CPT-4: DSWA 01/02 Fall Risk Assessment CPT-4: DFRA 01/27/2023 Hypertension CPT-4: HTN 01/27/2023 Clarkson Fany Assessment CPT-4: DSWAUnknown 01/27/2023 Fall Risk Assessment Any problems with balance or walking?/No, Has there been a fall with injury in the last year?/No, Two or more falls in the past year?/No, Plan:/Monitor gait and balance PRN, no current action needed CPT-4: DFRAUnknown 01/27/2023 Hypertension Hypertension Follow Up Plan/Lifestyle modification weight reduction, Hypertension Follow Up Plan/Lifestyle modification including reduce salt intake CPT-4: HTNUnknown 01/27/2023 Patient Health Questionnaire CPT-4: DPHQ Pain Screening CPT-4: PAS 2022 Tobacco Assessment/Screening CPT-4: TCA Hypertension CPT-4: HTN 08/17/2022 Clarkson Fany Assessment CPT-4: DSWA 04/02 Patient Health [...] CPT-4: VACP Fall Risk Assessment SNOMED CT: 00953939 4 CPT-4: DFRA 01/13/2021 Clarkson Fany Assessment CPT-4: DSWA 12/01 Urinalysis, dip stick CPT-4: 71109 09/24/2020 Patient Health Questionnaire CPT-4: DPHQ Electrocardiogram CPT-4: 10979 05/14/2020 Tobacco Assessment/Screening CPT-4: TCA Fall Risk Assessment SNOMED CT: 84678531 4 CPT-4: DFRA 01/01/2020 Functional Assessment CPT-4: DFA 01/01/2020 Clarkson Fany Assessment CPT-4: DSWA 11/04 Patient Health Questionnaire CPT-4: DPHQ Clarkson Fany Assessment CPT-4: DSWA 10/03 Hypertension CPT-4: HTN 10/17/2019 Fall Risk Assessment SNOMED CT: 13481133 4 CPT-4: DFRA 09/19/2019 Functional Assessment CPT-4: DFA 09/19/2019 Urinalysis, dip stick CPT-4: 99818 06/21/2019 Tobacco Assessment/Screening CPT-4: TCA Patient Health Questionnaire CPT-4: DPHQ AHA/REBECCA Classification Assessment CPT-4: DAHA 04/25/2019 Controlled Substance Report CPT-4: CTRSU 04/03 Urinalysis, dip stick CPT-4: 79579 03/28/2019 Urinalysis, dip stick CPT-4: 21247 03/28/2019 C3B-Hehnunilwhelwef CPT-4: 61895 Unknown B3D-Tkrwakjeomancch CPT-4: 11514 Unknown U8Z-Ncetdddmrbilliw CPT-4: 21554 Unknown Y8A-Wsyqdthvprmgafh CPT-4: 39292 Unknown S8I-Xfzdgyitycrdaxt CPT-4: 68564 Unknown H6M-Xdrdmwdqxsleapr CPT-4: 41569 Unknown K2E-Wnytvifpjmcorqi CPT-4: 35269 Unknown B1X-Rzlntcsxsvnyazk CPT-4: 09445 Unknown O8X-Qwgyaizaeoyrgqj CPT-4: 51546 Unknown P4E-Wclfriclszmebhv CPT-4: 09279 Unknown O1P-Azenxugxrgpplwv CPT-4: 71626 Unknown W6V-Hjzpxargxhsmzzx CPT-4: 61235 Unknown Gynecology Referral SNOMED CT: 713734070 CPT-4: R14 Unknown Vital Signs Date Vital 01/27/2023 Blood Pressure 1: 100/60 Code: 8480-6 BMI: 81.3 Code: 23000-6 Heart Rate 1: 79 bpm Height: 4' Code: 8302-2 Respiratory Rate: 20 bpm SpO2: 97% Temperature: 36.5 (C) / 97.7 (F) Weight: 266 lbs 8 oz Code: 78335-2 Reason For Visit Reason For Visit Effective Dates Notes gastroesophageal reflux disease 01/27/2023 diabetes mellitus 01/27/2023 hypertension 01/27/2023 depression 01/27/2023 Interim health update 01/27/2023 Encounters Encounter Performer Location Location Address Codes Magdi e ([id number]) Home or Residence Visit Est Pt - Moderate Level, 40 mins Diagnosis: Type 2 diabetes mellitus with peripheral neuropathy[ICD10: E11.42] Diagnosis: Hypertensive heart disease[ICD10: I11.9] Diagnosis: Major depression, recurrent[ICD10: F33.9] Diagnosis: Insomnia[ICD10: G47.00] Diagnosis: Adult BMI 50.0-59.9 kg/sq m[ICD10: Z68.43] Anna Culver [place] [facility] [address] [facility] [address] [place] [address] CPT-4: 21350 01/27/2023 Plan of Care Planned Activity Notes Codes Status Date Visit Plan: Visit time spent inv olved in medical discussion with patient, including obtaining history from patient, systems review, diagnostic and laboratory test review with patient. Assessment findings and plan reviewed with patient, including time to provide counseling, and education to patient I11.9-402.90 Hypertensive heart disease BP stable, no edema, will continue lisinopril, HCTZ continue with [employer] Josh Simon MD G47.33 Obstructive sleep apnea (adult), J45.909 Asthma breathing stable, continue utilization of Symbicort, albuterol via neb. or MDI q 4 hrs. prn dyspnea, tolerating CPAP for a few hours nightly continue with [employer] Jose BOWMAN K21.9 GERD (gastroesophageal reflux disease) symptoms improved, will continue omeprazole to 40mg at HS, continue famotidine, probiotic E11.42 Type 2 diabetes mellitus with peripheral neuropathy, Z68.43 Adult BMI 50.0-59.9 kg/sq m testing BS bid, range 99-133 continue Ozempic 1mg per week and gabapentin continue with Kerrie Pandya OD at [facility] trying to be more active, has step goal of 4000 steps daily, also limiting soda intake G47.00-780.52 Insomnia F33.9-296.30 Major depression, recurrent started on trazodone 50mg by Nichole Hernández, psychology for sleep issues patient feels sleep and mood much improved with this medication continue taking sertraline, buspirone Rexulti continue with [facility] in [place] E78.2 Hyperlipidemia, mixed patient has re-started atorvastatin continue Mediterranean style eating E55.9 Vitamin D deficiency continue cholecalciferol refill sent 01/27/2023 Patient Education: Patient Medication Summary Completed 01/27/2023 Patient Education: Diabetes Complete d 01/27/2023 Patient Education: Hypertension Completed 01/27/2023 Patient Education: Depression Completed 01/27/2023 Patient Education: Obesity Completed 01/27/2023 Appointment: Anna Culver WPtel: [address] [place] [address] E410 11/23/2022 Appointment: Anna Culver WPtel: [address] [place] [address] E410 2022 Appointment: Anna Culver WPtel: [address] [place] [address] E410 08/17/2022 Appointment: Anna Culver WPtel: [address] [place] [address] E410 06/23/2022 Appointment: Chivo Bishop WPtel: [address] [place] [address] E410 04/19/2022 Appointment: Chivo Bishop WPtel: [address] [place] [address] E410 02/11/2022 Appointment: Mikey Nair WPtel: [address] [facility] [id number] [place] E410 12/03/2021 Appointment: Chivo Bishop WPtel: [address] [place] [address] E410 11/02/2021 Appointment: Chivo Bishop WPtel: [address] [place] [address] E410 10/07/2021 Appointment: Chivo Bishop WPtel: [address] [place] [address] ETV 09/10/2021 Appointment: Chivo Bishop WPtel: [address] [place] [address] ETV 08/13/2021 Appointment: Chivo Bishop WPtel: [address] [place] [address] ETV 07/06/2021 Appointment: Chivo Bishop WPtel: [address] [place] [address] PHTV 06/10/2021 Appointment: Anna Culver WPtel: [address] [place] [address] ETV 06/02/2021 Appointment: Chivo Bishop WPtel: [address] [place] [address] ETV 05/20/2021 Appointment: Anna Culver WPtel: [address] [place] [address] ETV 04/28/2021 Appointment: Chivo Bishop WPtel: [address] [place] [address] ETV 04/15/2021 Appointment: Anna Culver WPtel: [address] [place] [address] E410 04/01/2021 Appointment: Anna Culver WPtel: [address] [place] [address] ETV 03/24/2021 Appointment: Anna Culver WPtel: [address] [place] [address] ETV 03/13/2021 Appointment: Anna Culver WPtel: [address] [place] [address] E410 02/11/2021 Appointment: Chivo Bishop WPtel: [address] [place] [address] E410 01/29/2021 Appointment: Anna Culver WPtel: [address] [place] [address] ETV 01/13/2021 Appointment: Anna Culver WPtel: [address] [place] [address] E410 12/17/2020 Appointment: Chivo Bishop WPtel: [address] [place] [address] ETV 11/28/2020 Appointment: Anna Culver WPtel: [address] [place] [address] ETV 11/24/2020 Appointment: Anna Culver WPtel: [address] [place] [address] E410 10/29/2020 Appointment: Anna Culver WPtel: [id number] [place] [address] [place] E410 09/24/2020 Appointment: Anna Culver WPtel: [address] [place] [address] ETV 08/26/2020 Appointment: Anna Culver WPtel: [address] [place] [address] ETV 08/19/2020 Appointment: Anna Culver WPtel: [address] [place] [address] ETV 07/22/2020 Appointment: Anna Culver WPtel: [address] [place] [address] ETV 07/08/2020 Appointment: Gianna Birmingham: [address] ECHO 07/02/2020 Appointment: Anna Culver WPtel: [address] [place] [address] E452 06/11/2020 Appointment: Anna Culver WPtel: [address] [place] [address] E452 05/14/2020 Appointment: Anna Culver WPtel: [address] [place] [address] E452 04/17/2020 Appointment: Anna Culver WPtel: [address] [place] [address] [place] E452 03/21/2020 Appointment: Anna Culver WPtel: [address] [place] [address] [place] E452 02/14/2020 Appointment: Anna Culver WPtel: [address] [place] [address] [place] E452 01/24/2020 Appointment: Anna Culver WPtel: [address] [place] [address] [place] E452 01/01/2020 Appointment: Anna Culver WPtel: [address] [place] [address] E452 11/28/2019 Appointment: Anna Culver WPtel: [address] E452 10/17/2019 Appointment: Anna Culver WPtel: [address] [place] [address] E452 09/19/2019 Appointment: Sudha Hernadez WPtel: [address] [id number] E452 07/04/2019 Appointment: Sudha Hernadez WPtel: [address] [id number] E452 06/21/2019 Appointment: Charlene Oropeza WPtel: [address] [id number] E452 05/24/2019 Appointment: Mallory Delgado [facility] 04/27/2019 Appointment: Charlene Oropeza WPtel: [address] [id number] E452 04/25/2019 Appointment: Rasta Palafox WPtel: [address] [id number] E452 03/28/2019 Appointment: Rasta Palafox WPtel: [address] [id number] E452 02/14/2019 Appointment: Rasta Palafox WPtel: [address] [id number] E452 01/31/2019 Appointment: Rasta Palafox WPtel: [address] [id number] E420 12/27/2018 Referral: Pending Gynecology Referral Information Referral Processed Referral: Pending Pulmonology Referral Information Referral Processed Referral: Pending Psychiatry Referral Information Referral Initiated Referral: Pending Respiratory Services Referral Information Referral Initiated Referral: Pending Ophthalmology Referral Information Referral Initiated Referral: [facility] WPtel: [address] [facility] [address] [facility] [employer] Department Supervisor placed a call out to the patient to notify her that it has been recommended that she be seen by a urologist. Patient agreed to be seen, does not have a provider of choice and no transportation issues. [employer] Department Supervisor faxed referral and clinical notes to [facility] in [place], [place] near the patient's home. Patient to [...] seen and prefers a provider in the [place] or [place] area. Roving Department Supervisor placed a call out to everyone listed in the area and the only location that was able to accept the patient's insurance was [address] [phone] and spoke with Maylin. Maylin asked that the patient's referral, face sheet and visit notes be faxed to . Roving Department Supervisor faxed over requested documents. Patient appointment confirmation letter generated and mailed to her home address. Patient to call to schedule an appointment. [facility] W[facility]: [address] [facility] [address] [place], [place] [id number] Patient notified that it has been advised that she be seen by Neurology. Patient agreed to be seen and prefers to be seen by a provider in the [place], [place] area. Patient denies any concerns with transportation, and prefers to schedule her own appointment. [employer] Department Supervisor [facility] and spoke with Neeraj [...] Information Referral Initiated Instructions Comment Date . Visit time spent involved in medical discussion with patient, including obtaining history from patient, systems review, diagnostic and laboratory test review with patient. Assessment findings and plan reviewed with patient, including time to provide counseling, and education to patient I11.9-402.90 Hypertensive heart disease BP stable, no edema, will continue lisinopril, HCTZ; continue with [employer] Josh Simon MD; G47.33 Obstructive sleep apnea (adult), J45.909 Asthma breathing stable, continue utilization of Symbicort, albuterol via neb. or MDI q 4 hrs. prn dyspnea, tolerating CPAP for a few hours nightly continue with [employer] Jose BOWMAN; K21.9 GERD (gastroesophageal reflux disease) symptoms improved, will continue omeprazole to 40mg at HS, continue famotidine, probiotic; E11.42 Type 2 diabetes mellitus with peripheral neuropathy, Z68.43 Adult BMI 50.0-59.9 kg/sq m testing BS bid, range 99-133 continue Ozempic 1mg per week and gabapentin; continue with Kerrie Pandya OD at [facility] trying to be more active, has step goal of 4000 steps daily, also limiting soda intake G47.00-780.52 Insomnia; F33.9-296.30 Major depression, recurrent started on trazodone 50mg by Nichole Hernández, psychology for sleep issues; patient feels sleep and mood much improved with this medication continue taking sertraline, buspirone; Rexulti continue with [facility] in [place]; E78.2 Hyperlipidemia, mixed patient has re-started atorvastatin continue Mediterranean style eating; E55.9 Vitamin D deficiency continue cholecalciferol refill sent 01/27/2023 Medical Equipment No Medical Equipment data Advance Directives No Advance Directive data
--- OUTSIDE RECORDS SUMMARY | 2023-12-07 02:23 | XMS_ITS | CCD ---
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 Knotter Hand Name Role Phone Palomo KING, Anna Primary Care Provider Unav ailable Unavailable Chronic Care Management Unavaila ble Summary Purpose DataExchange Insurance Providers Payer name Policy type / Coverage type Covered green party ID Effective Begin Date Effective End Date [facility] [id number] Unknown Unknown Family history Mother Diagnosis Age [...] Unknown Disability 05/31/[address]: 902477446 Has never s moked or chewed tobacco 05/31/[address]: 111910446 Never drinks alco hol 05/31/2018 Has the patient ever used illegal drugs? Unknown Has never used illegal drugs 05/31/2018 DNR Order/ Advanced Directive Unknown Full Code 05/31/2018 Allergies, Adverse Reactions, Alerts Substance Reaction Codes Entered Date Inactivated Date Status OxyContin itch, RxNorm: 323615 01/13/2021 No Inactive Da te Active *No [...] ICD-10: E78. 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 ICD-10: Z79.899 ICD-9: V58.69 04/25/2019 Inactive Type 2 diabetes mellitus wit hout complications ICD-10: E11.9 ICD-9: 250.00 10/03/2018 Inactive Wheezing ICD-10: R06.2 ICD-9: 786.07 08/08/2018 Inactive Abnormal urine finding ICD-10: R82.90 ICD-9: 791.9 09/24/2020 Resolved Abrasion of toe ICD-10: S90.416A ICD-9: 917.0 02/14/2020 Resolved [place] [facility] ICD-10: H10.029 ICD-9: 372.03 12/29/2019 Resolved [...] Instructions omeprazole 40 mg capsule,delayed release RxNorm: 741286 Take 1 Capsule(s) Oral every night at bedtime 023 2022 Inactive trazodone 50 mg tablet RxNorm: 065320 Administer 1 Tablet(s) Oral every night at bedtime 023 No Stop Date Active cholecalciferol (vitamin D3) 50 mcg (2,000 unit) tablet RxNorm: 495425 Take 1 Tablet(s) Oral every day 023 2023 Active Ozempic 1 mg/dose (4 mg/3 mL) subcutaneous pen injector RxNorm: 7066073 USE 1 UNIT DOSE SUBCUTANEOUSLY ON TUE OF EACH WEEK 023 2022 Inactive lisinopril 2.5 mg tablet RxNorm: 302933 Take 1 Tablet(s) Oral every day 023 2022 Inactive Msg From [facility]: Dr. Zapata Requested Ozempic 1 mg/dose (4 mg/3 mL) subcutaneous pen injector RxNorm: 1651263 USE 1 UNIT DOSE SUBCUTANEOUSLY ON TUE OF EACH WEEK 023 2022 Inactive omeprazole 40 mg capsule,delayed release RxNorm: 273274 Take 1 Capsule(s) Oral every night at bedtime 023 2022 Inactive gabapentin 300 mg capsule RxNorm: 676893 Take 1 Capsule(s) Oral three times a day 023 2022 Inactive montelukast 10 mg tablet RxNorm: 103758 Take 1 Tablet(s) Oral every day 023 2022 Inactive omeprazole 20 mg capsule,delayed release RxNorm: 021845 Take 1 Capsule(s) Oral every evening 022 2022 Inactive Alcohol Prep Pads RxNorm: 445427 USE EACH MORNING 022 2021 Inactive E11.42 clotrimazole 1 % topical cream RxNorm: 895262 Apply 1 Application Topical two times a day as needed apply to affected area(s) twice daily until healed 2021 Inactive Victoza 2-Sebastián 0.6 mg/0.1 mL (18 mg/3 mL) subcutaneous pen injector RxNorm: 830887 Inject 0.6-1.8 Milligram(s) Subcutaneous once a week Inject 0.6mg/0.1ml week one, 1.2mg/0.2ml week two, 1.8/0.3ml weekly thereafter 022 2021 Inactive ibuprofen 800 mg tablet RxNorm: 457947 Take 1 Tablet(s) Oral Q8H as needed for pain take with food No Stop Date Active Ozempic 1 mg/dose (4 mg/3 mL) subcutaneous pen injector RxNorm: 2515985 Take 1 Unit Dose Subcutaneous QWeek Tuesday 022 2021 Inactive lisinopril 2.5 mg tablet RxNorm: 192851 Take 1 Tablet(s) Oral every day 022 2021 Inactive lisinopril 2.5 mg tablet RxNorm: 425374 Take 1 Tablet(s) Oral every day 022 2022 Inactive hydrochlorothiazide 25 mg tablet RxNorm: 552396 Take 1 Tablet(s) Oral every day 022 2021 Inactive Ozempic 1 mg/dose (4 mg/3 mL) subcutaneous pen injector RxNorm: 6639061 Take 1 Unit Dose Subcutaneous QWeek 022 2021 Inactive famotidine 20 mg tablet RxNorm: 134297 Take 1 Tablet(s) Oral every morning 2021 Inactive levothyroxine 50 mcg tablet RxNorm: 344307 Take 1 Tablet(s) Oral every day 022 2021 Inactive atorvastatin 20 mg tablet RxNorm: 115157 Take 1 Tablet(s) Oral every night at bedtime 2021 Inactive Cleocin T 1 % lotion RxNorm: 528215 Take 2 Gram(s) Topical every day 022 2021 Inactive Cleocin T 1 % lotion RxNorm: 599705 Take 2 Gram(s) Topical every day 022 2021 Inactive Ozempic 1 mg/dose (4 mg/3 mL) subcutaneous pen injector RxNorm: 8319744 Take 1 Unit Dose Subcutaneous QWeek 022 2021 Inactive Ozempic 0.25 mg or 0.5 mg (2 mg/1.5 mL) subcutaneous pen injector RxNorm: 2016060 INJECT 0.5 MGS SUBCUTANEOUSLY EVERY WEEK 022 2021 Inactive omeprazole 20 mg capsule,delayed release RxNorm: 336554 Take 1 Capsule(s) Oral every evening 2021 Inactive levothyroxine 50 mcg tablet RxNorm: 942060 Take 1 Tablet(s) Oral every day 022 2021 Inactive atorvastatin 20 mg tablet RxNorm: 622616 Take 1 Tablet(s) Oral every night at bedtime 2021 Inactive This refill negates all other refills of this medication lisinopril 2.5 mg tablet RxNorm: 205104 Take 1 Tablet(s) Oral every day 022 2021 Inactive gabapentin 300 mg capsule RxNorm: 813677 Take 1 Capsule(s) Oral three times a day 2021 Inactive montelukast 10 mg tablet RxNorm: 620131 Take 1 Tablet(s) Oral every day 022 2021 Inactive Myrbetriq 50 mg tablet,extended release RxNorm: 6445737 1 Tablet(s) Oral every day No Stop Date Active cholecalciferol (vitamin D3) 50 mcg (2,000 unit) tablet RxNorm: 816399 Take 1 Tablet(s) Oral every day 2022 Inactive Ozempic 0.25 mg or 0.5 mg (2 mg/1.5 mL) subcutaneous pen injector RxNorm: 9781933 inject 0.5 milligrams subcutaneously every week 2021 Inactive Ozempic 0.25 mg or 0.5 mg (2 mg/1.5 mL) subcutaneous pen injector RxNorm: 6487405 Take 0.5 Capsule(s) Injection once a week 022 2021 Inactive omeprazole 20 mg capsule,delayed release RxNorm: 724596 Take 1 Capsule(s) Oral every evening 2020 Inactive Ozempic 0.25 mg or 0.5 mg (2 mg/1.5 mL) subcutaneous pen injector RxNorm: 4590063 Take 0.25 Milligram(s) Subcutaneous once a week 021 2021 Inactive Easy Touch Alcohol Prep Pads RxNorm: 450389 USE DIRECTED EACH MORNING 12/02/2021 Inactive Probiotic 10 billion cell capsule RxNorm: 0793681 Take 1 Capsule(s) Oral every day 021 2021 Inactive levothyroxine 50 mcg tablet RxNorm: 173452 Take 1 Tablet(s) Oral every day 021 2020 Inactive Acid Specialized Language Instructor (famotidine) 20 mg tablet RxNorm: 505531 Take 1 Tablet(s) Oral every morning 2020 Inactive Heartburn Relief (famotidine) 10 mg tablet RxNorm: 740140 Take 1 Tablet(s) Oral QAM 021 2020 Inactive levothyroxine 50 mcg tablet RxNorm: 036277 Take 1 Tablet(s) Oral QD 021 2020 Inactive Singulair 10 mg tablet RxNorm: 506906 TAKE (1) TABLET BY MOUTH DAILY 2020 Inactive metformin 1,000 mg tablet RxNorm: 427044 1 Tablet(s) Oral two times a day 021 2021 Inactive lisinopril 2.5 mg tablet RxNorm: 010032 Take 1 Tablet(s) Oral every day 2020 Inactive hydrochlorothiazide 25 mg tablet RxNorm: 019552 Take 1 Tablet(s) Oral every day 021 2020 Inactive ondansetron 4 mg disintegrating tablet RxNorm: 639704 1 Tablet(s) Oral two times a day 021 2020 Inactive Sudafed 12 Hour 120 mg tablet,extended release RxNorm: 9333810 TAKE 1 TABLET BY MOUTH EVERY 12 HOURS NEEDED 2021 Inactive Heartburn Relief (famotidine) 10 mg tablet RxNorm: 531513 Take 1 Tablet(s) Oral every morning 021 2020 Inactive omeprazole 20 mg capsule,delayed release RxNorm: 053759 1 Capsule(s) Oral every evening 021 2020 Inactive sertraline 100 mg tablet RxNorm: 934470 2 Tablet(s) Oral every day 021 2020 Inactive levothyroxine 50 mcg tablet RxNorm: 791178 TAKE (1) TABLET BY MOUTH DAILY 021 2020 Inactive metformin 500 mg tablet RxNorm: 691506 1 Tablet(s) Oral two times a day take with 500mg to equal 1000mg 021 2020 Inactive gabapentin 300 mg capsule RxNorm: 368705 TAKE 1 CAPSULE BY MOUTH THREE TIMES A DAY 021 2020 Inactive lisinopril 2.5 mg tablet RxNorm: 117888 TAKE 1 TABLET BY MOUTH DAILY 021 2020 Inactive gabapentin 300 mg capsule RxNorm: 398703 TAKE 1 CAPSULE BY MOUTH THREE TIMES A DAY 021 2020 Inactive Singulair 10 mg tablet RxNorm: 816555 TAKE (1) TABLET BY MOUTH DAILY 021 2020 Inactive metformin 1,000 mg tablet RxNorm: 140771 1 Tablet(s) Oral two times a day 021 2020 Inactive atorvastatin 40 mg tablet RxNorm: 294072 1 Tablet(s) Oral every day 021 2020 Inactive omeprazole 20 mg capsule,delayed release RxNorm: 926170 1 Capsule(s) Oral every evening 021 2020 Inactive famotidine 10 mg tablet RxNorm: 962473 1 Tablet(s) Oral every morning 021 2020 Inactive Alcohol Prep Pads RxNorm: 971293 USE EACH MORNING 021 2020 Inactive omeprazole 20 mg capsule,delayed release RxNorm: 478585 1 Capsule(s) Oral two times a day 021 2021 Inactive omeprazole 20 mg capsule,delayed release RxNorm: 635590 TAKE 1 CAPSULE BY MOUTH EVERY DAY 021 2021 Inactive Macrobid 100 mg capsule RxNorm: 847277 1 Capsule(s) Oral every 12 hours with food 020 2020 Inactive omeprazole 20 mg capsule,delayed release RxNorm: 628844 1 Capsule(s) Oral two times a day 2021 Inactive metformin 1,000 mg tablet RxNorm: 151500 1 Tablet(s) Oral two times a day 2020 Inactive start on September 11, 2020 metformin 500 mg tablet RxNorm: 693543 1 Tablet(s) Oral two times a day take with 500mg to equal 1000mg 2019 Inactive gabapentin 300 mg capsule RxNorm: 481789 TAKE 1 CAPSULE BY MOUTH THREE TIMES DAILY 2020 Inactive cetirizine 10 mg tablet RxNorm: 3016309 TAKE (1) TABLET BY MOUTH DAILY 2020 Inactive metformin 500 mg tablet RxNorm: 919453 1 Tablet(s) Oral two times a day 2019 Inactive loperamide 2 mg tablet RxNorm: 866359 1 Tablet(s) Oral as needed take one tablet after each loose stool, maximum of 8 tablets in 24 hours 2021 Inactive Sudafed 12 Hour 120 mg tablet,extended release RxNorm: 5996680 TAKE 1 TABLET BY MOUTH EVERY 12 HOURS NEEDED 2019 Inactive hydrochlorothiazide 25 mg tablet RxNorm: 856532 TAKE (1) TABLET BY MOUTH EVERY DAY 2019 Inactive omeprazole 20 mg capsule,delayed release RxNorm: 826052 TAKE 1 CAPSULE BY MOUTH EVERY DAY 2020 Inactive metformin 500 mg tablet RxNorm: 043590 1 Tablet(s) Oral every day 2019 Inactive True Metrix Glucose Test Strip RxNorm: 1 Test Strips Miscellaneous two times a day as needed No Stop Date Active metformin 500 mg tablet RxNorm: 149610 1 Tablet(s) Oral every day 2019 Inactive diclofenac sodium 75 mg tablet,delayed release RxNorm: 612341 1 Tablet(s) PO BID 2 Inactive This refill negates all other refills of this medication Sudafed 12 Hour 120 mg tablet,extended release RxNorm: 0086053 TAKE 1 TABLET BY MOUTH EVERY 12 HOURS NEEDED 020 2019 Inactive True Metrix Glucose Test Strip RxNorm: 1 Test Strips Miscellaneous every morning 020 2019 Inactive 100/container True Metrix Glucose Test Strip RxNorm: 1 Test Strips Miscellaneous QAM 020 2019 Inactive 100/container loperamide 2 mg tablet RxNorm: 465642 1 Tablet(s) Oral as needed take one tablet after each loose stool, maximum of 8 tablets in 24 hours 020 2019 Inactive cetirizine 10 mg tablet RxNorm: 3497490 1 Tablet(s) PO daily 020 2019 Inactive loperamide 2 mg tablet RxNorm: 442458 1 Tablet(s) Oral as needed take one tablet after each loose stool, maximum of 8 tablets in 24 hours 2019 Inactive quetiapine 100 mg tablet RxNorm: 719829 1 Tablet(s) Oral every night at bedtime 2019 Inactive levothyroxine 50 mcg tablet RxNorm: 984768 1 Tablet(s) PO daily 020 2020 Inactive gabapentin 300 mg capsule RxNorm: 783167 1 Capsule(s) PO TID 020 2019 Inactive levothyroxine 50 mcg tablet RxNorm: 991956 1 Tablet(s) PO daily 020 2019 Inactive lisinopril 2.5 mg tablet RxNorm: 851571 1 Tablet(s) PO daily 020 2020 Inactive gabapentin 300 mg capsule RxNorm: 410273 1 Capsule(s) PO TID 020 2019 Inactive cetirizine 10 mg tablet RxNorm: 9472377 1 Tablet(s) PO daily 020 2019 Inactive Singulair 10 mg tablet RxNorm: 509661 1 Tablet(s) PO daily 2020 Inactive gentamicin 0.3 % eye drops RxNorm: 975109 1 Drop(s) ophthalmic (eye) four times a day 2019 Inactive gentamicin 0.3 % eye drops RxNorm: 725738 1 Drop(s) ophthalmic (eye) four times a day 2019 Inactive gentamicin 0.3 % eye drops RxNorm: 145295 1 Drop(s) ophthalmic (eye) four times a day 2019 Inactive hydrochlorothiazide 25 mg tablet RxNorm: 984518 1 Tablet(s) Oral every day 2019 Inactive Sudafed 12 Hour 120 mg tablet,extended release RxNorm: 1906995 TAKE (1) TABLET BY MOUTH EVERY 12 HOURS NEEDED 2019 Inactive loperamide 2 mg tablet RxNorm: 484813 1 Tablet(s) Oral as needed take one tablet after each loose stool, maximum of 8 tablets in 24 hours 2019 Inactive loperamide 2 mg tablet RxNorm: 687584 1 Tablet(s) Oral as needed take one tablet after each loose stool, maximum of 8 tablets in 24 hours 2019 Inactive atorvastatin 40 mg tablet RxNorm: 534651 1 Tablet(s) Oral every day 2020 Inactive quetiapine 100 mg tablet RxNorm: 733182 1 Tablet(s) Oral every night at bedtime 2019 Inactive sertraline 100 mg tablet RxNorm: 859800 1 Tablet(s) Oral 2019 Inactive omeprazole 20 mg capsule,delayed release RxNorm: 170226 1 Capsule(s) Oral every day 020 2019 Inactive amoxicillin 250 mg capsule RxNorm: 976856 1 Capsule(s) Oral three times a day 2019 Inactive multivitamin with iron-mineral tablet RxNorm: 1 Tablet(s) Oral every day 2021 Inactive cetirizine 10 mg tablet RxNorm: 2226762 1 Tablet(s) PO daily 2019 Inactive This refill negates all other refills of this medication. Please do not auto refill Singulair 10 mg tablet RxNorm: 286114 1 Tablet(s) PO daily 2019 Inactive This refill negates all other refills of this medication gabapentin 300 mg capsule RxNorm: 103730 1 Capsule(s) PO TID 2019 Inactive lisinopril 2.5 mg tablet RxNorm: 271456 1 Tablet(s) PO daily 2019 Inactive levothyroxine 50 mcg tablet RxNorm: 834713 1 Tablet(s) PO daily 2019 Inactive This refill negates all other refills of this medication hydrochlorothiazide 25 mg tablet RxNorm: 800561 1 Tablet(s) Oral every day 2019 Inactive fenugreek seed extract 500 mg capsule RxNorm: 1 Capsule(s) Oral three times a day 2021 Inactive Alcohol Prep Pads RxNorm: 491916 1 Patch TOP QAM 2020 Inactive loperamide 2 mg tablet RxNorm: 902282 1 Tablet(s) Oral as needed take one [...] 2019 Inactive hydrochlorothiazide 25 mg tablet RxNorm: 427811 1 Tablet(s) Oral every day 019 2019 Inactive Sudafed 12 Hour 120 mg tablet,extended release RxNorm: 6750541 1 Tablet(s) Oral every 12 hours as needed 019 2018 Inactive omeprazole 20 mg capsule,delayed release RxNorm: 782170 1 Capsule(s) Oral every day 019 2019 Inactive Sudafed 12 Hour 120 mg tablet,extended release RxNorm: 9315128 1 Tablet(s) Oral every 12 hours as needed 2018 Inactive pantoprazole 40 mg tablet,delayed release RxNorm: 853954 1 Tablet(s) Oral every day 2018 Inactive discontinue any other H2Blkr. and PPI albuterol sulfate 2.5 mg/3 mL (0.083 %) solution for nebulization RxNorm: 034426 1 Vial Inhalation every four hours as needed as needed for dyspnea 2019 Inactive 60/box. This refill negates all other refills of this medication. Please do not fill early. Please do not auto refill. Symbicort 160 mcg-4.5 mcg/actuation HFA aerosol inhaler RxNorm: 3850140 2 Puff(s) INH BID No Stop Date Active Alcohol Prep Pads RxNorm: 952673 1 Patch TOP QAM 2019 Inactive Ventolin HFA 90 mcg/actuation aerosol inhaler RxNorm: 396836 2 Puff(s) INH QID 2019 Inactive Please do not fill early. Please do not auto refill. This refill negates all other refills of this medication True Metrix Glucose Test Strip RxNorm: 1 Test Strips Miscellaneous QAM 019 2019 Inactive 100/container atorvastatin 40 mg tablet RxNorm: 931966 1 Tablet(s) Oral every day 019 2019 Inactive buspirone 7.5 mg tablet RxNorm: 047581 1 Tablet(s) PO BID 019 2020 Inactive This refill negates all other refills of this medication hydrochlorothiazide 12.5 mg tablet RxNorm: 345788 1 Tablet(s) PO QAM 019 2019 Inactive levmetamfetamine 50 mg nasal inhaler RxNorm: 1 Unit(s) NASAL Q3-4H Do not use more than every 3 hours or 8 times/24hours 019 2021 Inactive Please do not auto refill. This refill negates all other refills of this medication Ventolin HFA 90 mcg/actuation aerosol inhaler RxNorm: 751104 2 Puff(s) INH QID 019 2018 Inactive Please do not fill early. Please do not auto refill. This refill negates all other refills of this medication Singulair 10 mg tablet RxNorm: 350933 1 Tablet(s) PO daily 019 2019 Inactive This refill negates all other refills of this medication cetirizine 10 mg tablet RxNorm: 4209080 1 Tablet(s) PO daily 019 2019 Inactive This refill negates all other refills of this medication. Please do not auto refill levothyroxine 50 mcg tablet RxNorm: 742761 1 Tablet(s) PO daily 019 2019 Inactive This refill negates all other refills of this medication diclofenac sodium 75 mg tablet,delayed release RxNorm: 762265 1 Tablet(s) PO BID 019 2019 Inactive This refill negates all other refills of this medication ranitidine 150 mg tablet RxNorm: 647129 1 Tablet(s) PO BID 019 2018 Inactive This refill negates all other refills of this medication Calcium 600-D3 Plus (mag-zinc) 600 mg calcium-800 unit-50 mg tablet RxNorm: 1 Tablet(s) PO daily take an additonal tablet for itching. 019 2018 Inactive This refill negates all other refills of this medication albuterol sulfate 2.5 mg/3 mL (0.083 %) solution for nebulization RxNorm: 396974 1 Vial INH QID 2018 Inactive 60/box. This refill negates all other refills of this medication. Please do not fill early. Please do not auto refill. lisinopril 2.5 mg tablet RxNorm: 355053 1 Tablet(s) PO daily 019 2019 Inactive gabapentin 300 mg capsule RxNorm: 891643 1 Capsule(s) PO TID 019 2019 Inactive atorvastatin 20 mg tablet RxNorm: 333153 1 Tablet(s) PO QHS 2018 Inactive This refill negates all other refills of this medication TRUEplus Lancets 30 gauge RxNorm: 1 Lancets Miscellaneous QAM 2018 Inactive 100/box gabapentin 300 mg capsule RxNorm: 970218 1 Capsule(s) PO TID 2018 Inactive Flintstones Complete (iron) 18 mg iron chewable tablet RxNorm: 1 Tablet(s) PO daily 019 2021 Inactive This refill negates all other refills of this medication gabapentin 300 mg capsule RxNorm: 598939 1 Capsule(s) PO TID as needed 2018 Inactive True Metrix Glucose Test Strip RxNorm: 1 Test Strips Miscellaneous QA 2018 Inactive 100/container Alcohol Prep Pads RxNorm: 641598 1 Patch TOP QAM 2018 Inactive TRUEplus Lancets 30 gauge RxNorm: 1 Lancets Miscellaneous QAM 019 2018 Inactive 100/box lisinopril 2.5 mg tablet RxNorm: 897094 1 Tablet(s) PO daily 019 2018 Inactive ranitidine 150 mg tablet RxNorm: 283884 1 Tablet(s) PO BID 2018 Inactive This refill negates all other refills of this medication albuterol sulfate 2.5 mg/3 mL (0.083 %) solution for nebulization RxNorm: 715330 1 Vial INH QID 019 2018 Inactive [...] this medication gabapentin 300 mg capsule RxNorm: 205363 1 Capsule(s) PO TID as needed 019 2018 Inactive atorvastatin 20 mg tablet RxNorm: 085645 1 Tablet(s) PO QHS 019 2018 Inactive This refill negates all other refills of this medication trazodone 50 mg tablet RxNorm: 205318 1 Tablet(s) PO QHS 019 2018 Inactive This refill negates all other refills of this medication Ventolin HFA 90 mcg/actuation aerosol inhaler RxNorm: 636617 2 Puff(s) INH QID 019 2018 Inactive Please do not fill early. Please do not auto refill. This refill negates all other refills of this medication Calcium 600-D3 Plus 600 mg calcium-800 unit-50 mg tablet RxNorm: 1 Tablet(s) PO daily take an additonal tablet for itching. 019 2018 Inactive This refill negates all other refills of this medication Singulair 10 mg tablet RxNorm: 591429 1 Tablet(s) PO daily 019 2018 Inactive This refill negates all other refills of this medication buspirone 7.5 mg tablet RxNorm: 432446 1 Tablet(s) PO BID 019 2018 Inactive This refill negates all other refills of this medication diclofenac sodium 75 mg tablet,delayed release RxNorm: 161347 1 Tablet(s) PO BID 019 2018 Inactive This refill negates all other refills of this medication hydrochlorothiazide 12.5 mg tablet RxNorm: 531355 1 Tablet(s) PO QAM 019 2018 Inactive metoprolol succinate ER 50 mg tablet,extended release 24 hr RxNorm: 336888 1 Tablet(s) PO daily 019 2018 Inactive This refill negates all other refills of this medication levothyroxine 50 mcg tablet RxNorm: 547200 1 Tablet(s) PO daily 019 2018 Inactive This refill negates all other refills of this medication cetirizine 10 mg tablet RxNorm: 0877513 1 Tablet(s) PO daily 2018 Inactive This refill negates all other refills of this medication. Please do not auto refill Flintstones Complete (iron) 18 mg iron chewable tablet RxNorm: 1 Tablet(s) PO daily 2018 Inactive This refill negates all other refills of this medication buspirone 7.5 mg tablet RxNorm: 571350 1 Tablet(s) PO BID 2018 Inactive cetirizine 10 mg tablet RxNorm: 4166256 1 Tablet(s) PO daily 2018 Inactive Guaiasorb DM 10 mg-100 mg/5 mL oral liquid RxNorm: 556325 10 Milliliter(s) PO As needed every 4 hr 2018 Inactive Vicks Vaporub 4.7 %-1.2 %-2.6 % topical ointment RxNorm: 0604502 1 Application TOP TID 2018 Inactive levmetamfetamine 50 mg nasal inhaler RxNorm: 1 Unit(s) NASAL Q3-4H 2017 Inactive sertraline 50 mg tablet RxNorm: 189810 1 Tablet(s) PO daily 2018 Inactive Please note dose trazodone 50 mg tablet RxNorm: 417438 1 Tablet(s) PO QHS /03/ 2019 Inactive sertraline 50 mg tablet RxNorm: 597962 1 Tablet(s) PO daily 018 2017 Inactive amoxicillin 500 mg tablet RxNorm: 749099 1 Tablet(s) PO Q12H 018 2017 Inactive albuterol sulfate 2.5 mg/3 mL (0.083 %) solution for nebulization RxNorm: 729562 1 Vial INH QID 018 2018 Inactive 60/box. Please do not fill early. Please do not auto refill. Prozac 10 mg capsule RxNorm: 293319 1 Capsule(s) PO daily 018 2017 Inactive buspirone 7.5 mg tablet RxNorm: 013095 1 Tablet(s) PO BID 018 2018 Inactive gabapentin 300 mg capsule RxNorm: 967440 1 Capsule(s) PO TID as needed 2018 Inactive hydrochlorothiazide 12.5 mg tablet RxNorm: 613743 1 Tablet(s) PO QAM 018 2018 Inactive ranitidine 150 mg tablet RxNorm: 567706 1 Tablet(s) PO BID 018 2018 Inactive Macrobid 100 mg capsule RxNorm: 221652 1 Capsule(s) PO Q12H 018 2017 Inactive Singulair 10 mg tablet RxNorm: 674887 1 Tablet(s) PO daily 018 2018 Inactive Ventolin HFA 90 mcg/actuation aerosol inhaler RxNorm: 9928108 2 Puff(s) INH QID 018 2018 Inactive Singulair 10 mg tablet RxNorm: 603007 1 Tablet(s) PO daily 018 2017 Inactive buspirone 7.5 mg tablet RxNorm: 229656 1 Tablet(s) PO BID 018 2017 Inactive Prozac 10 mg capsule RxNorm: 530143 1 Capsule(s) PO daily 018 2017 Inactive diclofenac sodium 75 mg tablet,delayed release RxNorm: 595530 1 Tablet(s) PO BID 018 2017 Inactive lisinopril 2.5 mg tablet RxNorm: 467197 1 Tablet(s) PO daily 018 2017 Inactive Neilmed Pediatric Sinus Rinse Refill packet RxNorm: 1 Unit Dose NASAL PRN 018 2021 Inactive metoprolol succinate ER 50 mg tablet,extended release 24 hr RxNorm: 883954 1 Tablet(s) PO daily 018 2017 Inactive levothyroxine 50 mcg tablet RxNorm: 992844 1 Tablet(s) PO daily 018 2017 Inactive TRUEplus Lancets 30 gauge RxNorm: 1 Lancets Miscellaneous QAM 018 2017 Inactive 100/box Ventolin HFA 90 mcg/actuation aerosol inhaler RxNorm: 465384 2 Puff(s) INH QID 018 2017 Inactive Aleve 220 mg capsule RxNorm: 2536287 1 Capsule(s) PO BID 018 2018 Inactive ranitidine 150 mg tablet RxNorm: 487059 1 Tablet(s) PO BID 018 2017 Inactive gabapentin 300 mg capsule RxNorm: 815249 1 Capsule(s) PO TID as needed 2017 Inactive atorvastatin 20 mg tablet RxNorm: 617280 1 Tablet(s) PO QHS 018 2017 Inactive True Metrix Glucose Test Strip RxNorm: 1 Test Strips Miscellaneous QAM 018 2017 Inactive 50/container Calcium 600-D3 Plus 600 mg calcium-800 unit-50 mg tablet RxNorm: 1 Tablet(s) PO daily take an additonal tablet for itching. 018 2017 Inactive hydrochlorothiazide 12.5 mg tablet RxNorm: 380985 1 Tablet(s) PO QAM 018 2017 Inactive Flintstones Complete (iron) 18 mg iron chewable tablet RxNorm: 1 Tablet(s) PO daily 018 2017 Inactive True Metrix Glucose Meter RxNorm: miscellaneous 019 2018 Inactive sertraline 50 mg tablet RxNorm: 430996 1 Tablet(s) PO daily 020 2019 Inactive loperamide 2 mg tablet RxNorm: 144862 oral 019 2018 Inactive d-mannose oral powder RxNorm: PO 018 2021 Inactive Symbicort 160 mcg-4.5 mcg/actuation HFA aerosol inhaler RxNorm: [id number] 2 Puff(s) INH BID 019 2018 Inactive Medication Administered No Medication Administered data Procedures Procedure Codes Date [place] Assessment CPT-4: DSWA 01/02 Fall Risk Assessment CPT-4: DFRA 01/27/2023 Hypertension CPT-4: HTN 01/27/2023 Patient Health Questionnaire CPT-4: DPHQ Pain Screening CPT-4: PAS 2022 Tobacco Assessment/Screening CPT-4: TCA Hypertension CPT-4: HTN 08/17/2022 [place] Assessment CPT-4: DSWA 04/02 Patient Health Questionnaire [...] CPT-4: VACP Fall Risk Assessment SNOMED CT: [id number] 4 CPT-4: DFRA 01/13/2021 [place] Assessment CPT-4: DSWA 12/01 Urinalysis, dip stick CPT-4: 02138 09/24/2020 Patient Health Questionnaire CPT-4: DPHQ Electrocardiogram CPT-4: 23934 05/14/2020 Tobacco Assessment/Screening CPT-4: TCA Fall Risk Assessment SNOMED CT: 55597190 4 CPT-4: DFRA 01/01/2020 Functional Assessment CPT-4: DFA 01/01/2020 [place] Assessment CPT-4: DSWA 11/04 Patient Health Questionnaire CPT-4: DPHQ [place] Assessment CPT-4: DSWA 10/03 Hypertension CPT-4: HTN 10/17/2019 Fall Risk Assessment SNOMED CT: 88428185 4 CPT-4: DFRA 09/19/2019 Functional Assessment CPT-4: DFA 09/19/2019 Urinalysis, dip stick CPT-4: 20425 06/21/2019 Tobacco Assessment/Screening CPT-4: TCA Patient Health Questionnaire CPT-4: DPHQ AHA/REBECCA Classification Assessment CPT-4: DAHA 04/25/2019 Controlled Substance Report CPT-4: CTRSU 04/03 Urinalysis, dip stick CPT-4: 22987 03/28/2019 Urinalysis, dip stick CPT-4: 87083 03/28/2019 G3V-Bkzifouakeqgsqq CPT-4: 67631 Unknown R5S-Hxdkvbwiehtydif CPT-4: 76827 Unknown A7F-Vgaypgegpqsxtdv CPT-4: 19212 Unknown S8I-Pfegyzrhpdyjpmj CPT-4: 21601 Unknown L6R-Nyzciaocezolobc CPT-4: 45936 Unknown S1A-Dallxnuoucgjbzu CPT-4: 33876 Unknown K0N-Rgcbybzjamfgubx CPT-4: 47137 Unknown J1C-Ggevkdoecviyxfl CPT-4: 08752 Unknown W0T-Pjepbhohwnyeeos CPT-4: 50893 Unknown O2H-Yrdcuklhgpwouoh CPT-4: 96994 Unknown A4H-Jvyvsfxmrcyqfjq CPT-4: 48160 Unknown R4X-Yxmvcfccvxnzsqr CPT-4: 74917 Unknown Gynecology Referral SNOMED CT: 143754236 CPT-4: R14 Unknown Reason For Visit No Reason For Visit data Plan of Care Planned Activity Notes Codes Status Date Referral: Pending Gynecology Referral Information Referral Processed Referral: Pending Pulmonolog y Referral Information Referral Processed Referral: Pending Psychiatry Referral Information Referral Initiated Referral: Pending Respirator y Services Referral Information Referral Initiated Referral: Pending Ophthalmol ogy Referral Information Referral Initiated Referral: [facility] WPtel: [address] [facility] [address] [employer] placed a call out to the patient to notify her that it has been recommended that she be seen by a urologist. Patient agreed to be seen, does not have a provider of choice and no transportation issues. [employer] faxed referral and clinical notes to [facility] in [place], [place] near the patient's home. Patient [...] seen and prefers a provider in the [place] or [place] area. [employer] placed a call out to everyone listed in the area and the only location that was able to accept the patient's insurance was [address] [id number] and spoke with Maylin. Maylin asked that the patient's referral, face sheet and visit notes be faxed to . [employer] faxed over requested documents. Patient appointment confirmation letter generated and mailed to her home address. Patient to call to schedule an appointment. Processed Referral: [facility] WPtel: [phone] [facility] [address] [place] [address] Patient notified that it has been advised that she be seen by Neurology. Patient agreed to be seen and prefers to be seen by a provider in the [place], [place] area. Patient denies any concerns with transportation, and prefers to schedule her own appointment. [employer] placed a call out to [facility] and spoke with Neeraj P: who confirmed that their office is able to accept new patients and the patient's insurance. After confirming the providers fax number, group underwriter faxed over the patient's referral, and [...]
--- OUTSIDE RECORDS SUMMARY | 2024-01-03 23:26 | XMS_ITS | CCD ---
Author Name Leena Culver NP Address [id number] [place] [address] [place] [address] Phone Organization [facility] Phone Care Team Providers Care Supply Chain Planner Name Role Phone Anna Culver NP Primary Care Provider Unav ailable Unavailable Chronic Care Management Unavaila ble Summary Purpose DataExchange Insurance Providers Payer name Policy type / Coverage type Covered republican ID Effective Begin Date Effective End Date SUKI MAYO [id number] Unknown Unknown Family history Mother Diagnosis Age [...] Unknown Disability 05/31/[address]: 300185391 Has never s moked or chewed tobacco 05/31/[address]: 729282671 Never drinks alco hol 05/31/2018 Has the patient ever used illegal drugs? Unknown Has never used illegal drugs 05/31/2018 DNR Order/ Advanced Directive Unknown Full Code 05/31/2018 Allergies, Adverse Reactions, Alerts Substance Reaction Codes Entered Date Inactivated Date Status OxyContin itch, RxNorm: 224332 01/13/2021 No Inactive Da te Active *No known food allergies Unknown 09/06/2018 No I nactive Date Active Methylprednisolone hives RxNorm: 6902 09/06/2018 No Inac tive Date Active Problems Condition Codes Effective Dates Condition St atus Hyperlipidemia, mixed ICD-10: E78.2 ICD-9: 272.2 12/03/2021 [...] Hypothyroid ICD-10: E03.9 ICD-9: 244.9 09/05/2018 Active Allergic rhinitis ICD-10: J30.9 ICD-9: 477.9 [...] ICD-10: E78. 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 edith therapy ICD-10: Z79.899 ICD-9: V58.69 04/25/2019 Inactive Type 2 diabetes mellitus wit hout complications ICD-10: E11.9 ICD-9: 250.00 10/03/2018 Inactive Wheezing ICD-10: R06.2 ICD-9: 786.07 08/08/2018 Inactive Abnormal urine finding ICD-10: R82.90 ICD-9: 791.9 09/24/2020 Resolved Abrasion of toe ICD-10: S90.416A ICD-9: 917.0 02/14/2020 Resolved [place] ICD-10: H10.029 ICD-9: 372.03 12/29/2019 Resolved [...] 500 mg 24 hr tablet,extended release RxNorm: 9569063 Take 1 Tablet(s) Oral every day with the evening meal 023 2022 Inactive famotidine 20 mg tablet RxNorm: 150600 Take 1 Tablet(s) Oral every morning 023 2022 Inactive levothyroxine 50 mcg tablet RxNorm: 586592 Take 1 Tablet(s) Oral every day 023 2023 Active Msg From [facility]: Approval Requested hydrochlorothiazide 25 mg tablet RxNorm: 870780 Take 1 Tablet(s) Oral every day 023 2023 Active Msg From [facility]: Approval Requested atorvastatin 20 mg tablet RxNorm: 778342 Take 1 Tablet(s) Oral every night at bedtime 023 2023 Active Macrobid 100 mg capsule RxNorm: 395191 1 Capsule(s) Oral every 12 hours with food 023 2022 Inactive omeprazole 40 mg capsule,delayed release RxNorm: 244328 Take 1 Capsule(s) Oral every night at bedtime 023 2022 Inactive trazodone 50 mg tablet RxNorm: 199981 Administer 1 Tablet(s) Oral every night at bedtime 023 No Stop Date Active cholecalciferol (vitamin D3) 50 mcg (2,000 unit) tablet RxNorm: 066364 Take 1 Tablet(s) Oral every day 023 2023 Active Ozempic 1 mg/dose (4 mg/3 mL) subcutaneous pen injector RxNorm: 3397592 USE 1 UNIT DOSE SUBCUTANEOUSLY ON TUE OF EACH WEEK 023 2022 Inactive lisinopril 2.5 mg tablet RxNorm: 716883 Take 1 Tablet(s) Oral every day 023 2022 Inactive Msg From [facility]: Approval Requested Ozempic 1 mg/dose (4 mg/3 mL) subcutaneous pen injector RxNorm: 4450172 USE 1 UNIT DOSE SUBCUTANEOUSLY ON TUE OF EACH WEEK 023 2022 Inactive omeprazole 40 mg capsule,delayed release RxNorm: 337586 Take 1 Capsule(s) Oral every night at bedtime 023 2022 Inactive gabapentin 300 mg capsule RxNorm: 125373 Take 1 Capsule(s) Oral three times a day 023 2022 Inactive montelukast 10 mg tablet RxNorm: 970315 Take 1 Tablet(s) Oral every day 023 2022 Inactive omeprazole 20 mg capsule,delayed release RxNorm: 935468 Take 1 Capsule(s) Oral every evening 022 2022 Inactive Alcohol Prep Pads RxNorm: 787464 USE EACH MORNING 022 2021 Inactive E11.42 clotrimazole 1 % topical cream RxNorm: 016617 Apply 1 Application Topical two times a day as needed apply to affected area(s) twice daily until healed 2021 Inactive Victoza 2-Sebastián 0.6 mg/0.1 mL (18 mg/3 mL) subcutaneous pen injector RxNorm: 114142 Inject 0.6-1.8 Milligram(s) Subcutaneous once a week Inject 0.6mg/0.1ml week one, 1.2mg/0.2ml week two, 1.8/0.3ml weekly thereafter 022 2021 Inactive ibuprofen 800 mg tablet RxNorm: 584388 Take 1 Tablet(s) Oral Q8H as needed for pain take with food No Stop Date Active Ozempic 1 mg/dose (4 mg/3 mL) subcutaneous pen injector RxNorm: 8978612 Take 1 Unit Dose Subcutaneous QWeek Tuesday 022 2021 Inactive lisinopril 2.5 mg tablet RxNorm: 264272 Take 1 Tablet(s) Oral every day 022 2021 Inactive lisinopril 2.5 mg tablet RxNorm: 679580 Take 1 Tablet(s) Oral every day 022 2022 Inactive hydrochlorothiazide 25 mg tablet RxNorm: 853238 Take 1 Tablet(s) Oral every day 022 2021 Inactive Ozempic 1 mg/dose (4 mg/3 mL) subcutaneous pen injector RxNorm: 3186323 Take 1 Unit Dose Subcutaneous QWeek 022 2021 Inactive famotidine 20 mg tablet RxNorm: 469444 Take 1 Tablet(s) Oral every morning 022 2021 Inactive levothyroxine 50 mcg tablet RxNorm: 338522 Take 1 Tablet(s) Oral every day 022 2021 Inactive atorvastatin 20 mg tablet RxNorm: 142581 Take 1 Tablet(s) Oral every night at bedtime 2021 Inactive Cleocin T 1 % lotion RxNorm: 900780 Take 2 Gram(s) Topical every day 022 2021 Inactive Cleocin T 1 % lotion RxNorm: 541754 Take 2 Gram(s) Topical every day 2021 Inactive Ozempic 1 mg/dose (4 mg/3 mL) subcutaneous pen injector RxNorm: 9760055 Take 1 Unit Dose Subcutaneous QWeek 022 2021 Inactive Ozempic 0.25 mg or 0.5 mg (2 mg/1.5 mL) subcutaneous pen injector RxNorm: 3944141 INJECT 0.5 MGS SUBCUTANEOUSLY EVERY WEEK 022 2021 Inactive omeprazole 20 mg capsule,delayed release RxNorm: 179751 Take 1 Capsule(s) Oral every evening 2021 Inactive levothyroxine 50 mcg tablet RxNorm: 311144 Take 1 Tablet(s) Oral every day 022 2021 Inactive atorvastatin 20 mg tablet RxNorm: 620710 Take 1 Tablet(s) Oral every night at bedtime 2021 Inactive This refill negates all other refills of this medication lisinopril 2.5 mg tablet RxNorm: 029827 Take 1 Tablet(s) Oral every day 022 2021 Inactive gabapentin 300 mg capsule RxNorm: 578490 Take 1 Capsule(s) Oral three times a day 022 2021 Inactive montelukast 10 mg tablet RxNorm: 060936 Take 1 Tablet(s) Oral every day 2021 Inactive Myrbetriq 50 mg tablet,extended release RxNorm: 0534889 1 Tablet(s) Oral every day No Stop Date Active cholecalciferol (vitamin D3) 50 mcg (2,000 unit) tablet RxNorm: 424702 Take 1 Tablet(s) Oral every day 2022 Inactive Ozempic 0.25 mg or 0.5 mg (2 mg/1.5 mL) subcutaneous pen injector RxNorm: 4361863 inject 0.5 milligrams subcutaneously every week 2021 Inactive Ozempic 0.25 mg or 0.5 mg (2 mg/1.5 mL) subcutaneous pen injector RxNorm: 6228640 Take 0.5 Capsule(s) Injection once a week 2021 Inactive omeprazole 20 mg capsule,delayed release RxNorm: 585425 Take 1 Capsule(s) Oral every evening 2020 Inactive Ozempic 0.25 mg or 0.5 mg (2 mg/1.5 mL) subcutaneous pen injector RxNorm: 2795794 Take 0.25 Milligram(s) Subcutaneous once a week 2021 Inactive Easy Touch Alcohol Prep Pads RxNorm: 512259 USE DIRECTED EACH MORNING 2021 Inactive Probiotic 10 billion cell capsule RxNorm: 5061592 Take 1 Capsule(s) Oral every day 2021 Inactive levothyroxine 50 mcg tablet RxNorm: 440922 Take 1 Tablet(s) Oral every day 2020 Inactive Acid Sheet Pile Driver Operator (famotidine) 20 mg tablet RxNorm: 296374 Take 1 Tablet(s) Oral every morning 2020 Inactive Heartburn Relief (famotidine) 10 mg tablet RxNorm: 111811 Take 1 Tablet(s) Oral QAM 2020 Inactive levothyroxine 50 mcg tablet RxNorm: 811017 Take 1 Tablet(s) Oral QD 021 2020 Inactive Singulair 10 mg tablet RxNorm: 847075 TAKE (1) TABLET BY MOUTH DAILY 021 2020 Inactive metformin 1,000 mg tablet RxNorm: 317894 1 Tablet(s) Oral two times a day 021 2021 Inactive lisinopril 2.5 mg tablet RxNorm: 353925 Take 1 Tablet(s) Oral every day 021 2020 Inactive hydrochlorothiazide 25 mg tablet RxNorm: 834083 Take 1 Tablet(s) Oral every day 021 2020 Inactive ondansetron 4 mg disintegrating tablet RxNorm: 234669 1 Tablet(s) Oral two times a day 021 2020 Inactive Sudafed 12 Hour 120 mg tablet,extended release RxNorm: 8027165 TAKE 1 TABLET BY MOUTH EVERY 12 HOURS NEEDED 2021 Inactive Heartburn Relief (famotidine) 10 mg tablet RxNorm: 509615 Take 1 Tablet(s) Oral every morning 021 2020 Inactive omeprazole 20 mg capsule,delayed release RxNorm: 901803 1 Capsule(s) Oral every evening 021 2020 Inactive sertraline 100 mg tablet RxNorm: 729403 2 Tablet(s) Oral every day 021 2020 Inactive levothyroxine 50 mcg tablet RxNorm: 941492 TAKE (1) TABLET BY MOUTH DAILY 021 2020 Inactive metformin 500 mg tablet RxNorm: 316806 1 Tablet(s) Oral two times a day take with 500mg to equal 1000mg 021 2020 Inactive gabapentin 300 mg capsule RxNorm: 422488 TAKE 1 CAPSULE BY MOUTH THREE TIMES A DAY 021 2020 Inactive lisinopril 2.5 mg tablet RxNorm: 111566 TAKE 1 TABLET BY MOUTH DAILY 021 2020 Inactive gabapentin 300 mg capsule RxNorm: 095307 TAKE 1 CAPSULE BY MOUTH THREE TIMES A DAY 021 2020 Inactive Singulair 10 mg tablet RxNorm: 508737 TAKE (1) TABLET BY MOUTH DAILY 021 2020 Inactive metformin 1,000 mg tablet RxNorm: 519013 1 Tablet(s) Oral two times a day 021 2020 Inactive atorvastatin 40 mg tablet RxNorm: 607375 1 Tablet(s) Oral every day 021 2020 Inactive omeprazole 20 mg capsule,delayed release RxNorm: 622088 1 Capsule(s) Oral every evening 2020 Inactive famotidine 10 mg tablet RxNorm: 371738 1 Tablet(s) Oral every morning 021 2020 Inactive Alcohol Prep Pads RxNorm: 864909 USE EACH MORNING 021 2020 Inactive omeprazole 20 mg capsule,delayed release RxNorm: 619934 1 Capsule(s) Oral two times a day 2021 Inactive omeprazole 20 mg capsule,delayed release RxNorm: 155884 TAKE 1 CAPSULE BY MOUTH EVERY DAY 2021 Inactive Macrobid 100 mg capsule RxNorm: 087080 1 Capsule(s) Oral every 12 hours with food 2020 Inactive omeprazole 20 mg capsule,delayed release RxNorm: 297055 1 Capsule(s) Oral two times a day 2021 Inactive metformin 1,000 mg tablet RxNorm: 145541 1 Tablet(s) Oral two times a day 2020 Inactive start on September 11, 2020 metformin 500 mg tablet RxNorm: 108733 1 Tablet(s) Oral two times a day take with 500mg to equal 1000mg 2019 Inactive gabapentin 300 mg capsule RxNorm: 918497 TAKE 1 CAPSULE BY MOUTH THREE TIMES DAILY 2020 Inactive cetirizine 10 mg tablet RxNorm: 2474035 TAKE (1) TABLET BY MOUTH DAILY 020 2020 Inactive metformin 500 mg tablet RxNorm: 540180 1 Tablet(s) Oral two times a day 020 2019 Inactive loperamide 2 mg tablet RxNorm: 157117 1 Tablet(s) Oral as needed take one tablet after each loose stool, maximum of 8 tablets in 24 hours 2021 Inactive Sudafed 12 Hour 120 mg tablet,extended release RxNorm: 6080366 TAKE 1 TABLET BY MOUTH EVERY 12 HOURS NEEDED 2019 Inactive hydrochlorothiazide 25 mg tablet RxNorm: 141360 TAKE (1) TABLET BY MOUTH EVERY DAY 020 2019 Inactive omeprazole 20 mg capsule,delayed release RxNorm: 308483 TAKE 1 CAPSULE BY MOUTH EVERY DAY 020 2020 Inactive metformin 500 mg tablet RxNorm: 763605 1 Tablet(s) Oral every day 020 2019 Inactive True Metrix Glucose Test Strip RxNorm: 1 Test Strips Miscellaneous two times a day as needed No Stop Date Active metformin 500 mg tablet RxNorm: 361656 1 Tablet(s) Oral every day 020 2019 Inactive diclofenac sodium 75 mg tablet,delayed release RxNorm: 953556 1 Tablet(s) PO BID 020 2021 Inactive This refill negates all other refills of this medication Sudafed 12 Hour 120 mg tablet,extended release RxNorm: 6792210 TAKE 1 TABLET BY MOUTH EVERY 12 HOURS NEEDED 020 2019 Inactive True Metrix Glucose Test Strip RxNorm: 1 Test Strips Miscellaneous every morning 020 2019 Inactive 100/container True Metrix Glucose Test Strip RxNorm: 1 Test Strips Miscellaneous QA 020 2019 Inactive 100/container loperamide 2 mg tablet RxNorm: 933536 1 Tablet(s) Oral as needed take one tablet after each loose stool, maximum of 8 tablets in 24 hours 2019 Inactive cetirizine 10 mg tablet RxNorm: 1063910 1 Tablet(s) PO daily 2019 Inactive loperamide 2 mg tablet RxNorm: 235140 1 Tablet(s) Oral as needed take one tablet after each loose stool, maximum of 8 tablets in 24 hours 2019 Inactive quetiapine 100 mg tablet RxNorm: 837471 1 Tablet(s) Oral every night at bedtime 2019 Inactive levothyroxine 50 mcg tablet RxNorm: 768683 1 Tablet(s) PO daily 2020 Inactive gabapentin 300 mg capsule RxNorm: 501268 1 Capsule(s) PO TID 2019 Inactive levothyroxine 50 mcg tablet RxNorm: 849131 1 Tablet(s) PO daily 2019 Inactive lisinopril 2.5 mg tablet RxNorm: 629686 1 Tablet(s) PO daily 2020 Inactive gabapentin 300 mg capsule RxNorm: 502485 1 Capsule(s) PO TID 2019 Inactive cetirizine 10 mg tablet RxNorm: 0401232 1 Tablet(s) PO daily 2019 Inactive Singulair 10 mg tablet RxNorm: 362310 1 Tablet(s) PO daily 2020 Inactive gentamicin 0.3 % eye drops RxNorm: 082997 1 Drop(s) ophthalmic (eye) four times a day 2019 Inactive gentamicin 0.3 % eye drops RxNorm: 379874 1 Drop(s) ophthalmic (eye) four times a day 2019 Inactive gentamicin 0.3 % eye drops RxNorm: 446910 1 Drop(s) ophthalmic (eye) four times a day 2019 Inactive hydrochlorothiazide 25 mg tablet RxNorm: 874280 1 Tablet(s) Oral every day 2019 Inactive Sudafed 12 Hour 120 mg tablet,extended release RxNorm: 9965599 TAKE (1) TABLET BY MOUTH EVERY 12 HOURS NEEDED 2019 Inactive loperamide 2 mg tablet RxNorm: 526321 1 Tablet(s) Oral as needed take one tablet after each loose stool, maximum of 8 tablets in 24 hours 020 2019 Inactive loperamide 2 mg tablet RxNorm: 083511 1 Tablet(s) Oral as needed take one tablet after each loose stool, maximum of 8 tablets in 24 hours 020 2019 Inactive atorvastatin 40 mg tablet RxNorm: 691539 1 Tablet(s) Oral every day 2020 Inactive quetiapine 100 mg tablet RxNorm: 734652 1 Tablet(s) Oral every night at bedtime 2019 Inactive sertraline 100 mg tablet RxNorm: 764835 1 Tablet(s) Oral 020 2019 Inactive omeprazole 20 mg capsule,delayed release RxNorm: 314862 1 Capsule(s) Oral every day 2019 Inactive amoxicillin 250 mg capsule RxNorm: 728912 1 Capsule(s) Oral three times a day 2019 Inactive multivitamin with iron-mineral tablet RxNorm: 1 Tablet(s) Oral every day 2021 Inactive cetirizine 10 mg tablet RxNorm: 7419557 1 Tablet(s) PO daily 2019 Inactive This refill negates all other refills of this medication. Please do not auto refill Singulair 10 mg tablet RxNorm: 578159 1 Tablet(s) PO daily 2019 Inactive This refill negates all other refills of this medication gabapentin 300 mg capsule RxNorm: 129434 1 Capsule(s) PO TID 2019 Inactive lisinopril 2.5 mg tablet RxNorm: 918564 1 Tablet(s) PO daily 2019 Inactive levothyroxine 50 mcg tablet RxNorm: 220444 1 Tablet(s) PO daily 2019 Inactive This refill negates all other refills of this medication hydrochlorothiazide 25 mg tablet RxNorm: 832760 1 Tablet(s) Oral every day 2019 Inactive fenugreek seed extract 500 mg capsule RxNorm: 1 Capsule(s) Oral three times a day 2021 Inactive Alcohol Prep Pads RxNorm: 317815 1 Patch TOP QAM 2020 Inactive loperamide 2 mg tablet RxNorm: 804529 1 Tablet(s) Oral as needed take one [...] 2019 Inactive hydrochlorothiazide 25 mg tablet RxNorm: 312095 1 Tablet(s) Oral every day 2019 Inactive Sudafed 12 Hour 120 mg tablet,extended release RxNorm: 6324213 1 Tablet(s) Oral every 12 hours as needed 2018 Inactive omeprazole 20 mg capsule,delayed release RxNorm: 846974 1 Capsule(s) Oral every day 2019 Inactive Sudafed 12 Hour 120 mg tablet,extended release RxNorm: 3620034 1 Tablet(s) Oral every 12 hours as needed 2018 Inactive pantoprazole 40 mg tablet,delayed release RxNorm: 072265 1 Tablet(s) Oral every day 2018 Inactive discontinue any other H2Blkr. and PPI albuterol sulfate 2.5 mg/3 mL (0.083 %) solution for nebulization RxNorm: 729964 1 Vial Inhalation every four hours as needed as needed for dyspnea 019 2019 Inactive 60/box. This refill negates all other refills of this medication. Please do not fill early. Please do not auto refill. Symbicort 160 mcg-4.5 mcg/actuation HFA aerosol inhaler RxNorm: 2230895 2 Puff(s) INH BID No Stop Date Active Alcohol Prep Pads RxNorm: 329662 1 Patch TOP QAM 019 2019 Inactive Ventolin HFA 90 mcg/actuation aerosol inhaler RxNorm: 393162 2 Puff(s) INH QID 019 2019 Inactive Please do not fill early. Please do not auto refill. This refill negates all other refills of this medication True Metrix Glucose Test Strip RxNorm: 1 Test Strips Miscellaneous QAM 019 2019 Inactive 100/container atorvastatin 40 mg tablet RxNorm: 741676 1 Tablet(s) Oral every day 019 2019 Inactive buspirone 7.5 mg tablet RxNorm: 170095 1 Tablet(s) PO BID 019 2020 Inactive This refill negates all other refills of this medication hydrochlorothiazide 12.5 mg tablet RxNorm: 865045 1 Tablet(s) PO QAM 019 2019 Inactive levmetamfetamine 50 mg nasal inhaler RxNorm: 1 Unit(s) NASAL Q3-4H Do not use more than every 3 hours or 8 times/24hours 019 2021 Inactive Please do not auto refill. This refill negates all other refills of this medication Ventolin HFA 90 mcg/actuation aerosol inhaler RxNorm: 646771 2 Puff(s) INH QID 019 2018 Inactive Please do not fill early. Please do not auto refill. This refill negates all other refills of this medication Singulair 10 mg tablet RxNorm: 754999 1 Tablet(s) PO daily 019 2019 Inactive This refill negates all other refills of this medication cetirizine 10 mg tablet RxNorm: 8645500 1 Tablet(s) PO daily 019 2019 Inactive This refill negates all other refills of this medication. Please do not auto refill levothyroxine 50 mcg tablet RxNorm: 187617 1 Tablet(s) PO daily 019 2019 Inactive This refill negates all other refills of this medication diclofenac sodium 75 mg tablet,delayed release RxNorm: 453453 1 Tablet(s) PO BID 019 2019 Inactive This refill negates all other refills of this medication ranitidine 150 mg tablet RxNorm: 787246 1 Tablet(s) PO BID 2018 Inactive This refill negates all other refills of this medication Calcium 600-D3 Plus (mag-zinc) 600 mg calcium-800 unit-50 mg tablet RxNorm: 1 Tablet(s) PO daily take an additonal tablet for itching. 2018 Inactive This refill negates all other refills of this medication albuterol sulfate 2.5 mg/3 mL (0.083 %) solution for nebulization RxNorm: 303237 1 Vial INH QID 2018 Inactive 60/box. This refill negates all other refills of this medication. Please do not fill early. Please do not auto refill. lisinopril 2.5 mg tablet RxNorm: 943133 1 Tablet(s) PO daily 019 2019 Inactive gabapentin 300 mg capsule RxNorm: 057163 1 Capsule(s) PO TID 019 2019 Inactive atorvastatin 20 mg tablet RxNorm: 696768 1 Tablet(s) PO QHS 019 2018 Inactive This refill negates all other refills of this medication TRUEplus Lancets 30 gauge RxNorm: 1 Lancets Miscellaneous QAM 019 2018 Inactive 100/box gabapentin 300 mg capsule RxNorm: 744858 1 Capsule(s) PO TID 019 2018 Inactive Flnickolas Complete (iron) 18 mg iron chewable tablet RxNorm: 1 Tablet(s) PO daily 019 2021 Inactive This refill negates all other refills of this medication gabapentin 300 mg capsule RxNorm: 951595 1 Capsule(s) PO TID as needed 019 2018 Inactive True Metrix Glucose Test Strip RxNorm: 1 Test Strips Miscellaneous [facility] 019 2018 Inactive 100/container Alcohol Prep Pads RxNorm: 453141 1 Patch TOP [facility] 2018 Inactive TRUEplus Lancets 30 gauge RxNorm: 1 Lancets Miscellaneous QA 019 2018 Inactive 100/box lisinopril 2.5 mg tablet RxNorm: 009635 1 Tablet(s) PO daily 019 2018 Inactive ranitidine 150 mg tablet RxNorm: 338011 1 Tablet(s) PO BID 019 2018 Inactive This refill negates all other refills of this medication albuterol sulfate 2.5 mg/3 mL (0.083 %) solution for nebulization RxNorm: 982983 1 Vial INH QID 2018 Inactive 60/box. [...] this medication gabapentin 300 mg capsule RxNorm: 488918 1 Capsule(s) PO TID as needed 019 2018 Inactive atorvastatin 20 mg tablet RxNorm: 994344 1 Tablet(s) PO QHS 019 2018 Inactive This refill negates all other refills of this medication trazodone 50 mg tablet RxNorm: 212376 1 Tablet(s) PO QHS 019 2018 Inactive This refill negates all other refills of this medication Ventolin HFA 90 mcg/actuation aerosol inhaler RxNorm: 546873 2 Puff(s) INH QID 019 2018 Inactive Please do not fill early. Please do not auto refill. This refill negates all other refills of this medication Calcium 600-D3 Plus 600 mg calcium-800 unit-50 mg tablet RxNorm: 1 Tablet(s) PO daily take an additonal tablet for itching. 019 2018 Inactive This refill negates all other refills of this medication Singulair 10 mg tablet RxNorm: 253862 1 Tablet(s) PO daily 019 2018 Inactive This refill negates all other refills of this medication buspirone 7.5 mg tablet RxNorm: 932307 1 Tablet(s) PO BID 019 2018 Inactive This refill negates all other refills of this medication diclofenac sodium 75 mg tablet,delayed release RxNorm: 237494 1 Tablet(s) PO BID 019 2018 Inactive This refill negates all other refills of this medication hydrochlorothiazide 12.5 mg tablet RxNorm: 860824 1 Tablet(s) PO QAM 019 2018 Inactive metoprolol succinate ER 50 mg tablet,extended release 24 hr RxNorm: 783713 1 Tablet(s) PO daily 019 2018 Inactive This refill negates all other refills of this medication levothyroxine 50 mcg tablet RxNorm: 533209 1 Tablet(s) PO daily 019 2018 Inactive This refill negates all other refills of this medication cetirizine 10 mg tablet RxNorm: 7388430 1 Tablet(s) PO daily 2018 Inactive This refill negates all other refills of this medication. Please do not auto refill Flintstones Complete (iron) 18 mg iron chewable tablet RxNorm: 1 Tablet(s) PO daily 019 2018 Inactive This refill negates all other refills of this medication buspirone 7.5 mg tablet RxNorm: 446541 1 Tablet(s) PO BID 2018 Inactive cetirizine 10 mg tablet RxNorm: 7724635 1 Tablet(s) PO daily 2018 Inactive Guaiasorb DM 10 mg-100 mg/5 mL oral liquid RxNorm: 019810 10 Milliliter(s) PO As needed every 4 hr 2018 Inactive Vicks Vaporub 4.7 %-1.2 %-2.6 % topical ointment RxNorm: 3842101 1 Application TOP TID 2018 Inactive levmetamfetamine 50 mg nasal inhaler RxNorm: 1 Unit(s) NASAL Q3-4H 2017 Inactive sertraline 50 mg tablet RxNorm: 468326 1 Tablet(s) PO daily 2018 Inactive Please note dose trazodone 50 mg tablet RxNorm: 831123 1 Tablet(s) PO QHS 2018 Inactive sertraline 50 mg tablet RxNorm: 896410 1 Tablet(s) PO daily 018 2017 Inactive amoxicillin 500 mg tablet RxNorm: 205610 1 Tablet(s) PO Q12H 2017 Inactive albuterol sulfate 2.5 mg/3 mL (0.083 %) solution for nebulization RxNorm: 080345 1 Vial INH QID 2018 Inactive 60/box. Please do not fill early. Please do not auto refill. Prozac 10 mg capsule RxNorm: 280315 1 Capsule(s) PO daily 2017 Inactive buspirone 7.5 mg tablet RxNorm: 790002 1 Tablet(s) PO BID 018 2018 Inactive gabapentin 300 mg capsule RxNorm: 133071 1 Capsule(s) PO TID as needed 018 2018 Inactive hydrochlorothiazide 12.5 mg tablet RxNorm: 557402 1 Tablet(s) PO QAM 2018 Inactive ranitidine 150 mg tablet RxNorm: 206473 1 Tablet(s) PO BID 018 2018 Inactive Macrobid 100 mg capsule RxNorm: 195765 1 Capsule(s) PO Q12H 018 2017 Inactive Singulair 10 mg tablet RxNorm: 698476 1 Tablet(s) PO daily 018 2018 Inactive Ventolin HFA 90 mcg/actuation aerosol inhaler RxNorm: 0264854 2 Puff(s) INH QID 018 2018 Inactive Singulair 10 mg tablet RxNorm: 407094 1 Tablet(s) PO daily 018 2017 Inactive buspirone 7.5 mg tablet RxNorm: 199441 1 Tablet(s) PO BID 018 2017 Inactive Prozac 10 mg capsule RxNorm: 283370 1 Capsule(s) PO daily 018 2017 Inactive diclofenac sodium 75 mg tablet,delayed release RxNorm: 478941 1 Tablet(s) PO BID 018 2017 Inactive lisinopril 2.5 mg tablet RxNorm: 979782 1 Tablet(s) PO daily 018 2017 Inactive [facility]med Pediatric Sinus Rinse Refill packet RxNorm: 1 Unit Dose NASAL PRN 018 2021 Inactive metoprolol succinate ER 50 mg tablet,extended release 24 hr RxNorm: 980596 1 Tablet(s) PO daily 018 2017 Inactive levothyroxine 50 mcg tablet RxNorm: 592132 1 Tablet(s) PO daily 018 2017 Inactive TRUEplus Lancets 30 gauge RxNorm: 1 Lancets Miscellaneous QAM 018 2017 Inactive 100/box Ventolin HFA 90 mcg/actuation aerosol inhaler RxNorm: 455928 2 Puff(s) INH QID 018 2017 Inactive Aleve 220 mg capsule RxNorm: 6574144 1 Capsule(s) PO BID 018 2018 Inactive ranitidine 150 mg tablet RxNorm: 652886 1 Tablet(s) PO BID 018 2017 Inactive gabapentin 300 mg capsule RxNorm: 766197 1 Capsule(s) PO TID as needed 018 2017 Inactive atorvastatin 20 mg tablet RxNorm: 563002 1 Tablet(s) PO QHS 018 2017 Inactive True Metrix Glucose Test Strip RxNorm: 1 Test Strips Miscellaneous QA 018 2017 Inactive 50/container Calcium 600-D3 Plus 600 mg calcium-800 unit-50 mg tablet RxNorm: 1 Tablet(s) PO daily take an additonal tablet for itching. 018 2017 Inactive hydrochlorothiazide 12.5 mg tablet RxNorm: 229188 1 Tablet(s) PO QAM 018 2017 Inactive Flintstones Complete (iron) 18 mg iron chewable tablet RxNorm: 1 Tablet(s) PO daily 018 2017 Inactive True Metrix Glucose Meter RxNorm: miscellaneous 019 2018 Inactive sertraline 50 mg tablet RxNorm: 423356 1 Tablet(s) PO daily 020 2019 Inactive loperamide 2 mg tablet RxNorm: 403395 oral 019 2018 Inactive d-mannose oral powder RxNorm: PO 018 2021 Inactive Symbicort 160 mcg-4.5 mcg/actuation HFA aerosol inhaler RxNorm: 1600188 2 Puff(s) INH BID 019 2018 Inactive Medication Administered No Medication Administered data Results Observation Observation Code Item Item Code Result Date Service Location COMPLETE CBC W/ DIFF WBC 94259 WBC 6690-2 7.8 K/ul 023 [facility] [address] [place] [address] 56155 COMPLETE CBC W/ DIFF WBC 91256 RBC 789-8 4.32 M/uL 023 [facility] [address] [place] [address] 69294 COMPLETE CBC W/ DIFF WBC 67274 Hemoglobin 718-7 11.5 g/dL 023 [facility] [address] [place] [address] 86532 COMPLETE CBC W/ DIFF WBC 76260 Hematocrit 4544-3 34.6 % 023 [facility] [address] [place] [address] 04559 COMPLETE CBC W/ DIFF WBC 74797 MCV 787-2 80.1 fL 023 [facility] [address] [place] [address] 47583 COMPLETE CBC W/ DIFF WBC 51937 MCH 785-6 26.7 pg 023 [facility] [address] [place] [address] 78160 COMPLETE CBC W/ DIFF WBC 00371 MCHC 786-4 33.3 g/dL 023 [facility] [address] [place] [address] 02177 COMPLETE CBC W/ DIFF WBC 64355 RDW 788-0 15.2 % 023 [facility] [address] [place] [address] 77956 COMPLETE CBC W/ DIFF WBC 72926 Platelet Count 777-3 314 K/uL 023 [facility] [address] [place] [address] 95058 COMPLETE CBC W/ DIFF WBC 44021 MPV 50767-1 8.9 fL 023 [facility] [address] [place] [address] 09902 COMPLETE CBC W/ DIFF WBC 67909 Neutrophils % 770-8 59.2 % 023 [facility] [address] [place] [address] 94378 COMPLETE CBC W/ DIFF WBC 35358 Lymphocytes % 736-9 28.1 % 023 [facility] [address] [place] [address] 56811 COMPLETE CBC W/ DIFF WBC 82296 Monocytes % 5905-5 7.1 % 023 [facility] [address] [place] [address] COMPLETE CBC W/ DIFF WBC 35024 Eosinophils % 713-8 5.0 % 023 [facility] [address] [place] [address] COMPLETE CBC W/ DIFF WBC 05487 Basophils% 706-2 0.6 % 023 [facility] [address] [place] [address] COMPLETE CBC W/ DIFF WBC 05623 Absolute Neutrophil 751-8 4618 /ul 023 [facility] [address] [place] [address] COMPLETE CBC W/ DIFF WBC 95341 Absolute Lymphocyte 48964-2 2192 /ul 023 [facility] [address] [place] [address] COMPLETE CBC W/ DIFF WBC 62525 Absolute Monocyte 742-7 554 /ul 023 [facility] [address] [place] [address] 63176 COMPLETE CBC W/ DIFF WBC 30125 Absolute Eosinophil 711-2 390 /ul 023 [facility] [address] [place] [address] 06168 COMPLETE CBC W/ DIFF WBC 89352 Absolute Basophil 704-7 47 /ul 023 [facility] [address] [place] [address] 29227 HDL - CHOL 44265 HDL 2085-9 43 mg/dL 023 [facility] [address] [place] [address] 44850 HDL - CHOL 84043 CHD 44581-1 28 % 023 [facility] [address] [place] [address] 18827 MICROALBUMIN (URINE) 13461 Microalbumin 97246-9 1.3 mg/dL 023 [facility] [address] [place] [address] 11399 MICROALBUMIN (URINE) 58470 Microalbumin/Crea tinine Ratio 04954-9 30 MCG/MGCRE AT 023 [facility] [address] [place] [address] 30035 MICROALBUMIN (URINE) 87418 Urine Creatinine 2161-8 42.70 mg/dL 023 [facility] [address] [place] [address] 63745 DIRECT LDL - CHOL 06893 LDL-Direct 67392-5 93 mg/dL 0 023 [facility] [address] [place] [address] 33639 TRIGLYCERIDES 14090 Triglycerides 2571-8 123 mg/dL 023 [facility] [address] [place] [address] TRIGLYCERIDES 12427 VLDL 18895-3 25 mg/dL 023 [facility] [address] [place] [address] CHOLESTEROL 17371 Cholesterol 2093-3 155 mg/dL 023 [facility] [address] [place] [address] VITAMIN D 34097 Vitamin D 69045-5 79.4 ng/mL 023 [facility] [address] [place] [address] PREALBUMIN 44650 Prealbumin 76662-6 22 mg/dL 023 [facility] [address] [place] [address] Procedures Procedure Codes Date Urinalysis, dip stick CPT-4: 45677 05/04/2023 Glucose Blood Test CPT-4: 54741 05/04/2023 Urinalysis, dip stick Leukocytes:/Moderate, Nitrite:/Negative, Urobilinogen:/0.2, Protein:/Negative, Ph:/5.0, Blood:/Negative, Specific [place]:/1.005, Ketone:/Negative, Bilirubin:/Negative, Glucose:/Negative CPT-4: 93423Bewfjyp 05/04/2023 Manquin Fany Assessment CPT-4: DSWA 01/02 Fall Risk Assessment CPT-4: DFRA 01/27/2023 Hypertension CPT-4: HTN 01/27/2023 Patient Health Questionnaire CPT-4: DPHQ Pain Screening CPT-4: PAS 2022 Tobacco Assessment/Screening CPT-4: TCA Hypertension CPT-4: HTN 08/17/2022 Manquin Fany Assessment CPT-4: DSWA 04/02 Patient Health [...] CPT-4: VACP Fall Risk Assessment SNOMED CT: 43687522 4 CPT-4: DFRA 01/13/2021 Manquin Fany Assessment CPT-4: DSWA 12/01 Urinalysis, dip stick CPT-4: 31577 09/24/2020 Patient Health Questionnaire CPT-4: DPHQ Electrocardiogram CPT-4: 03971 05/14/2020 Tobacco Assessment/Screening CPT-4: TCA Fall Risk Assessment SNOMED CT: 30710826 4 CPT-4: DFRA 01/01/2020 Functional Assessment CPT-4: DFA 01/01/2020 Manquin Fany Assessment CPT-4: DSWA 11/04 Patient Health Questionnaire CPT-4: DPHQ Manquin Fany Assessment CPT-4: DSWA 10/03 Hypertension CPT-4: HTN 10/17/2019 Fall Risk Assessment SNOMED CT: 21245922 4 CPT-4: DFRA 09/19/2019 Functional Assessment CPT-4: DFA 09/19/2019 Urinalysis, dip stick CPT-4: 20673 06/21/2019 Tobacco Assessment/Screening CPT-4: TCA Patient Health Questionnaire CPT-4: DPHQ AHA/REBECCA Classification Assessment CPT-4: DAHA 04/25/2019 Controlled Substance Report CPT-4: CTRSU 04/03 Urinalysis, dip stick CPT-4: 33850 03/28/2019 Urinalysis, dip stick CPT-4: 71448 03/28/2019 U8Z-Avekuavkvolvinc CPT-4: 52174 Unknown B6D-Ktyeytuysckqzrt CPT-4: 48590 Unknown C5H-Rbycosoffoxzewi CPT-4: 12975 Unknown Y0C-Qffaketzhemzbtu CPT-4: 87767 Unknown B1H-Uptzlgdeuuyswgf CPT-4: 31991 Unknown H5W-Uxbzchbfzrlnayx CPT-4: 51071 Unknown L2H-Gcnmpjfczkskroy CPT-4: 86418 Unknown F1D-Hkrzvmyrcaxpxwh CPT-4: 62599 Unknown E1U-Lqjegmxyldyjrgp CPT-4: 57112 Unknown Q8Q-Anasarzcddtuygf CPT-4: 92032 Unknown J6L-Kfwsjwtbzdiexil CPT-4: 26329 Unknown P3M-Wvuiddkblndxbcg CPT-4: 37869 Unknown Gynecology Referral SNOMED CT: 342784736 CPT-4: R14 Unknown Vital Signs Date Vital 05/04/2023 Blood Pressure 1: 114/76 Code: 8480-6 BMI: 78.8 Code: 08882-4 Heart Rate 1: 70 bpm Height: 4' Code: 8302-2 Random Blood Sugar: 108/NaN Respiratory Rate: 16 bpm SpO2: 98% Temperature: 36.7 (C) / 98.1 (F) Weight: 258 lbs 4 oz Code: 99496-6 Reason For Visit Reason For Visit Effective Dates Notes diabetes mellitus 05/04/2023 HTN 05/04/2023 hyperlipidemia disease 05/04/2023 seizure disorder 05/04/2023 Interim health update 05/04/2023 Encounters Encounter Performer Location Location Address Codes Magdi e ([id number]) Home or Residence Visit Est Pt - Moderate Level, 40 mins Diagnosis: Type 2 diabetes mellitus with peripheral neuropathy[ICD10: E11.42] Diagnosis: Hyperlipidemia, mixed[ICD10: E78.2] Diagnosis: Hypertensive heart disease without heart failure[ICD10: I11.9] Diagnosis: Major depression, recurrent[ICD10: F33.9] Diagnosis: Vitamin D deficiency[ICD10: E55.9] Diagnosis: 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 or MDI q 4 hrs. prn dyspnea, tolerating CPAP for a few hours nightly continue with [facility] Education Consult[facility] Jose BOWMAN K21.9 GERD (gastroesophageal reflux disease) symptoms improved, will continue omeprazole to 40mg at HS, continue famotidine, probiotic E11.42 Type 2 diabetes mellitus with peripheral neuropathy, Z68.43 Adult BMI 50.0-59.9 kg/sq m testing BS bid, range 99-133 continue Ozempic 1mg per week and gabapentin continue with Kerrie Pandya OD at [facility] trying to be more active, has step goal of 4000 steps daily, also limiting soda intake G47.00-780.52 Insomnia F33.9-296.30 Major depression, recurrent started on trazodone 50mg by Nichole Hernández, psychology for sleep issues patient feels sleep and mood much improved with this medication continue taking sertraline, buspirone Rexulti continue with [facility] in [place] E78.2 Hyperlipidemia, mixed patient has re-started atorvastatin continue Mediterranean style eating E55.9 Vitamin D deficiency continue cholecalciferol refill sent 05/04/2023 Patient Education: Diabetes Complete d 05/04/2023 Patient Education: Patient Medication Summary Completed 05/04/2023 Patient Education: Seizures Complete d 05/04/2023 Patient Education: Hypertension Completed 05/04/2023 Patient Education: Obesity Completed 05/04/2023 Appointment: Anna Culver WPtel: [address] [place] [address] E410 01/27/2023 Appointment: Anna Culver WPtel: [address] [place] [address] [place] E410 11/23/2022 Appointment: Anna Culver WPtel: [address] [place] [address] E410 2022 Appointment: Anna Culver WPtel: [address] [place] [address] E410 08/17/2022 Appointment: Anna Culver WPtel: [address] [place] [address] E410 06/23/2022 Appointment: Chivo Bishop WPtel: [address] [place] [address] E410 04/19/2022 Appointment: Chivo Bishop WPtel: [address] [place] [address] E410 02/11/2022 Appointment: Mikey Nair WPtel: [address] [facility] XsshyyEE[address] [place] E410 12/03/2021 Appointment: Chivo Bishop WPtel: [address] [place] [address] E410 11/02/2021 Appointment: Chivo Bishop WPtel: [address] [place] [address] E410 10/07/2021 Appointment: Chivo Bishop WPtel: [address] [place] [address] ETV 09/10/2021 Appointment: Chivo Bishop WPtel: [address] [place] [address] ETV 08/13/2021 Appointment: Chivo Bishop WPtel: [address] [place] [address] ETV 07/06/2021 Appointment: Chivo Bishop WPtel: [address] [place] [address] PHTV 06/10/2021 Appointment: Anna Culver WPtel: [address] [place] [address] ETV 06/02/2021 Appointment: Chivo Bishop WPtel: [address] [place] [address] ETV 05/20/2021 Appointment: Anna Culver WPtel: [address] [place] [address] ETV 04/28/2021 Appointment: Chivo Bishop WPtel: [address] [place] [address] ETV 04/15/2021 Appointment: Anna Culver WPtel: [address] [place] [address] E410 04/01/2021 Appointment: Anna Culver WPtel: [address] [place] [address] ETV 03/24/2021 Appointment: Anna Culver WPtel: [address] [place] [address] ETV 03/13/2021 Appointment: Anna Culver WPtel: [address] [place] [address] E410 02/11/2021 Appointment: Chivo Bishop WPtel: [address] [place] [address] E410 01/29/2021 Appointment: Anna Culver WPtel: [address] [place] [address] ETV 01/13/2021 Appointment: Anna Culver WPtel: [address] [place] [address] E410 12/17/2020 Appointment: Chivo Bishop WPtel: [address] [place] [address] ETV 11/28/2020 Appointment: Anna Culver WPtel: [address] [place] [address] ETV 11/24/2020 Appointment: Anna Culver WPtel: [address] [place] [address] E410 10/29/2020 Appointment: Anna Culver WPtel: [id number] [place] [address] [place] E410 09/24/2020 Appointment: Anna Culver WPtel: [address] [place] [address] ETV 08/26/2020 Appointment: Anna Culver WPtel: [address] [place] [address] [place] ETV 08/19/2020 Appointment: Anna Culver WPtel: [address] [place] [address] ETV 07/22/2020 Appointment: Anna Culver WPtel: [address] [place] [address] ETV 07/08/2020 Appointment: Gianna Birmingham: [facility] [address] [place] ECHO 07/02/2020 Appointment: Anna Culver WPtel: [address] [place] [address] E452 06/11/2020 Appointment: Anna Culver WPtel: [address] [place] [address] E452 05/14/2020 Appointment: Anna Culver WPtel: [address] [place] [address] [place] E452 04/17/2020 Appointment: Anna Culver WPtel: [address] [place] [address] [place] E452 03/21/2020 Appointment: Anna Culver WPtel: [address] [place] [address] E452 02/14/2020 Appointment: Anna Culver WPtel: [address] [place] [address] E452 01/24/2020 Appointment: Anna Culver WPtel: [address] [facility] [address] [place] [address] E452 01/01/2020 Appointment: Anna Culver WPtel: [id number] [place] [address] [place] [address] E452 11/28/2019 Appointment: Anna Culver WPtel: [address] [place] [address] E452 10/17/2019 Appointment: Anna Culver WPtel: [address] [facility] [address] [place] [address] E452 09/19/2019 Appointment: Sudha Hernadez WPtel: [address] [facility] [place] [address] [id number] E452 07/04/2019 Appointment: Sudha Hernadez WPtel: [address] [employer] [address] [id number] E452 06/21/2019 Appointment: Charlene Oropeza WPtel: [address] [facility] [place] [address] [id number] E452 05/24/2019 Appointment: Mallory Delgado [facility] 04/27/2019 Appointment: Charlene Oropeza WPtel: [address] [facility] [place] [address] [id number] E452 04/25/2019 Appointment: Rasta Palafox WPtel: [address] [employer] [address] [id number] E452 03/28/2019 Appointment: Rasta Palafox WPtel: [address] [facility] [place] [address] [id number] E452 02/14/2019 Appointment: Rasta Palafox WPtel: [address] [facility] [place] [address] [id number] E452 01/31/2019 Appointment: Rasta Palafox WPtel: [address] [facility] [address] [id number] E420 12/27/2018 Referral: Pending Gynecology Referral Information Referral Processed Referral: Pending Pulmonology Referral Information Referral Processed Referral: Pending Psychiatry Referral Information Referral Initiated Referral: Pending Respiratory Services Referral Information Referral Initiated Referral: Pending Ophthalmology Referral Information Referral Initiated Referral: [facility] WPtel: [address] [facility] [address] [employer] placed a call out to the patient to notify her that it has been recommended that she be seen by a urologist. Patient agreed to be seen, does not have a provider of choice and no transportation issues. [employer] faxed referral and clinical notes to [facility] in [place], [place] near the patient's home. Patient [...] seen and prefers a provider in the [place] or [place] area. [employer] placed a call out to everyone listed in the area and the only location that was able to accept the patient's insurance was [address] [phone] and spoke with Maylin. Maylin asked that the patient's referral, face sheet and visit notes be faxed to . [employer] faxed over requested documents. Patient appointment confirmation letter generated and mailed to her home address. Patient to call to schedule an appointment. Processed [facility] W[facility]: [address] [facility] [address] [place], [place] [id number] Patient notified that it has been advised that she be seen by Neurology. Patient agreed to be seen and prefers to be seen by a provider in the [place], [place] area. Patient denies any concerns with transportation, and prefers to schedule her own appointment. [employer] [facility] and spoke with Neeraj [...] will continue lisinopril, HCTZ; continue with [facility] Josh Simon MD; G47.33 Obstructive sleep apnea (adult), J45.909 Asthma breathing stable, continue utilization of Symbicort, albuterol via neb. or MDI q 4 hrs. prn dyspnea, tolerating CPAP for a few hours nightly continue with Nursing Education Consultant Jose BOWMAN; K21.9 GERD (gastroesophageal reflux disease) symptoms improved, will continue omeprazole to 40mg at HS, continue famotidine, probiotic; E11.42 Type 2 diabetes mellitus with peripheral neuropathy, Z68.43 Adult BMI 50.0-59.9 kg/sq m testing BS bid, range 99-133 continue Ozempic 1mg per week and gabapentin; continue with Kerrie Pandya OD at [facility] trying to be more active, has step goal of 4000 steps daily, also limiting soda intake G47.00-780.52 Insomnia; F33.9-296.30 Major depression, recurrent started on trazodone 50mg by Nichole Hernández, psychology for sleep issues; patient feels sleep and mood much improved with this medication continue taking sertraline, buspirone; Rexulti continue with [facility] in [place]; E78.2 Hyperlipidemia, mixed patient has re-started atorvastatin continue Mediterranean style eating; E55.9 Vitamin D deficiency continue cholecalciferol refill sent 05/04/2023 Medical Equipment No Medical Equipment data Advance Directives No Advance Directive data
--- OUTSIDE RECORDS SUMMARY | 2024-01-03 23:26 | XMS_ITS | CCD ---
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 Senior Pharmacy Technician Name Role Phone Palomo KING, Anna Primary Care Provider Unav ailable Unavailable Chronic Care Management Unavaila ble Summary Purpose DataExchange Insurance Providers Payer name Policy type / Coverage type Covered green party ID Effective Begin Date Effective End Date SUKI MAYO [id number] Unknown Unknown Family history Mother Diagnosis Age [...] Unknown Disability 05/31/[address]: 923785767 Has never s moked or chewed tobacco 05/31/[address]: [id number] Never drinks alco hol 05/31/2018 Has the patient ever used illegal drugs? Unknown Has never used illegal drugs 05/31/2018 DNR Order/ Advanced Directive Unknown Full Code 05/31/2018 Allergies, Adverse Reactions, Alerts Substance Reaction Codes Entered Date Inactivated Date Status OxyContin itch, RxNorm: 536981 01/13/2021 No Inactive Da te Active *No [...] ICD-10: E78. 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 [...] 784.0 10/03/2018 Inactive Other [facility] (current) dr edith therapy ICD-10: Z79.899 ICD-9: V58.69 04/25/2019 Inactive Type 2 diabetes mellitus wit hout complications ICD-10: E11.9 ICD-9: 250.00 10/03/2018 Inactive Wheezing ICD-10: R06.2 ICD-9: 786.07 08/08/2018 Inactive Abnormal urine finding ICD-10: R82.90 ICD-9: 791.9 09/24/2020 Resolved Abrasion of toe ICD-10: S90.416A ICD-9: 917.0 02/14/2020 Resolved [place] ICD-10: H10.029 ICD-9: 372.03 12/29/2019 Resolved [...] Fill Instructions famotidine 20 mg tablet RxNorm: 812135 Take 1 Tablet(s) Oral every morning 023 2022 Inactive levothyroxine 50 mcg tablet RxNorm: 883977 Take 1 Tablet(s) Oral every day 023 2023 [facility] Requested hydrochlorothiazide 25 mg tablet RxNorm: 624588 Take 1 Tablet(s) Oral every day 023 2023 [facility] Requested atorvastatin 20 mg tablet RxNorm: 341433 Take 1 Tablet(s) Oral every night at bedtime 023 2023 Active Macrobid 100 mg capsule RxNorm: 194645 1 Capsule(s) Oral every 12 hours with food 023 2022 Inactive omeprazole 40 mg capsule,delayed release RxNorm: 20021111 Take 1 Capsule(s) Oral every night at bedtime 023 2022 Inactive trazodone 50 mg tablet RxNorm: 566411 Administer 1 Tablet(s) Oral every night at bedtime 023 No Stop Date Active cholecalciferol (vitamin D3) 50 mcg (2,000 unit) tablet RxNorm: 430818 Take 1 Tablet(s) Oral every day 023 2023 Active Ozempic 1 mg/dose (4 mg/3 mL) subcutaneous pen injector RxNorm: 3775252 USE 1 UNIT DOSE SUBCUTANEOUSLY ON TUE OF EACH WEEK 023 2022 Inactive lisinopril 2.5 mg tablet RxNorm: 450385 Take 1 Tablet(s) Oral every day 023 2022 Inactive Msg From [facility]: Dr. Zapata Requested Ozempic 1 mg/dose (4 mg/3 mL) subcutaneous pen injector RxNorm: 6226753 USE 1 UNIT DOSE SUBCUTANEOUSLY ON TUE OF EACH WEEK 023 2022 Inactive omeprazole 40 mg capsule,delayed release RxNorm: 20021111 Take 1 Capsule(s) Oral every night at bedtime 023 2022 Inactive gabapentin 300 mg capsule RxNorm: 584838 Take 1 Capsule(s) Oral three times a day 023 2022 Inactive montelukast 10 mg tablet RxNorm: 155040 Take 1 Tablet(s) Oral every day 023 2022 Inactive omeprazole 20 mg capsule,delayed release RxNorm: 235729 Take 1 Capsule(s) Oral every evening 022 2022 Inactive Alcohol Prep Pads RxNorm: 159765 USE EACH MORNING 022 2021 Inactive E11.42 clotrimazole 1 % topical cream RxNorm: 585130 Apply 1 Application Topical two times a day as needed apply to affected area(s) twice daily until healed 2021 Inactive Victoza 2-Sebastián 0.6 mg/0.1 mL (18 mg/3 mL) subcutaneous pen injector RxNorm: 053211 Inject 0.6-1.8 Milligram(s) Subcutaneous once a week Inject 0.6mg/0.1ml week one, 1.2mg/0.2ml week two, 1.8/0.3ml weekly thereafter 2021 Inactive ibuprofen 800 mg tablet RxNorm: 367433 Take 1 Tablet(s) Oral Q8H as needed for pain take with food No Stop Date Active Ozempic 1 mg/dose (4 mg/3 mL) subcutaneous pen injector RxNorm: 3434000 Take 1 Unit Dose Subcutaneous QWeek Tuesday2021 Inactive lisinopril 2.5 mg tablet RxNorm: 756693 Take 1 Tablet(s) Oral every day 2021 Inactive lisinopril 2.5 mg tablet RxNorm: 843960 Take 1 Tablet(s) Oral every day 2022 Inactive hydrochlorothiazide 25 mg tablet RxNorm: 960756 Take 1 Tablet(s) Oral every day 2021 Inactive Ozempic 1 mg/dose (4 mg/3 mL) subcutaneous pen injector RxNorm: 7018757 Take 1 Unit Dose Subcutaneous QWeek 2021 Inactive famotidine 20 mg tablet RxNorm: 604075 Take 1 Tablet(s) Oral every morning 2021 Inactive levothyroxine 50 mcg tablet RxNorm: 528487 Take 1 Tablet(s) Oral every day 022 2021 Inactive atorvastatin 20 mg tablet RxNorm: 200795 Take 1 Tablet(s) Oral every night at bedtime 2021 Inactive Cleocin T 1 % lotion RxNorm: 646642 Take 2 Gram(s) Topical every day 022 2021 Inactive Cleocin T 1 % lotion RxNorm: 238663 Take 2 Gram(s) Topical every day 022 2021 Inactive Ozempic 1 mg/dose (4 mg/3 mL) subcutaneous pen injector RxNorm: 6379748 Take 1 Unit Dose Subcutaneous QWeek 022 2021 Inactive Ozempic 0.25 mg or 0.5 mg (2 mg/1.5 mL) subcutaneous pen injector RxNorm: 2757040 INJECT 0.5 MGS SUBCUTANEOUSLY EVERY WEEK 2021 Inactive omeprazole 20 mg capsule,delayed release RxNorm: 779392 Take 1 Capsule(s) Oral every evening 2021 Inactive levothyroxine 50 mcg tablet RxNorm: 560706 Take 1 Tablet(s) Oral every day 022 2021 Inactive atorvastatin 20 mg tablet RxNorm: 925518 Take 1 Tablet(s) Oral every night at bedtime 2021 Inactive This refill negates all other refills of this medication lisinopril 2.5 mg tablet RxNorm: 548591 Take 1 Tablet(s) Oral every day 2021 Inactive gabapentin 300 mg capsule RxNorm: 350565 Take 1 Capsule(s) Oral three times a day 2021 Inactive montelukast 10 mg tablet RxNorm: 101393 Take 1 Tablet(s) Oral every day 2021 Inactive Myrbetriq 50 mg tablet,extended release RxNorm: 4389418 1 Tablet(s) Oral every day No Stop Date Active cholecalciferol (vitamin D3) 50 mcg (2,000 unit) tablet RxNorm: 843825 Take 1 Tablet(s) Oral every day 022 2022 Inactive Ozempic 0.25 mg or 0.5 mg (2 mg/1.5 mL) subcutaneous pen injector RxNorm: 7105033 inject 0.5 milligrams subcutaneously every week 022 2021 Inactive Ozempic 0.25 mg or 0.5 mg (2 mg/1.5 mL) subcutaneous pen injector RxNorm: 5268427 Take 0.5 Capsule(s) Injection once a week 2021 Inactive omeprazole 20 mg capsule,delayed release RxNorm: 348790 Take 1 Capsule(s) Oral every evening 2020 Inactive Ozempic 0.25 mg or 0.5 mg (2 mg/1.5 mL) subcutaneous pen injector RxNorm: 9819032 Take 0.25 Milligram(s) Subcutaneous once a week 2021 Inactive Easy Touch Alcohol Prep Pads RxNorm: 862001 USE DIRECTED EACH MORNING 2021 Inactive Probiotic 10 billion cell capsule RxNorm: 1942997 Take 1 Capsule(s) Oral every day 2021 Inactive levothyroxine 50 mcg tablet RxNorm: 329680 Take 1 Tablet(s) Oral every day 2020 Inactive Acid Tuckpointer Cleaner Caulker (famotidine) 20 mg tablet RxNorm: 631188 Take 1 Tablet(s) Oral every morning 2020 Inactive Heartburn Relief (famotidine) 10 mg tablet RxNorm: 769117 Take 1 Tablet(s) Oral QAM 2020 Inactive levothyroxine 50 mcg tablet RxNorm: 271317 Take 1 Tablet(s) Oral QD 2020 Inactive Singulair 10 mg tablet RxNorm: 421271 TAKE (1) TABLET BY MOUTH DAILY 2020 Inactive metformin 1,000 mg tablet RxNorm: 310631 1 Tablet(s) Oral two times a day 2021 Inactive lisinopril 2.5 mg tablet RxNorm: 153308 Take 1 Tablet(s) Oral every day 2020 Inactive hydrochlorothiazide 25 mg tablet RxNorm: 404111 Take 1 Tablet(s) Oral every day 021 2020 Inactive ondansetron 4 mg disintegrating tablet RxNorm: 458513 1 Tablet(s) Oral two times a day 021 2020 Inactive Sudafed 12 Hour 120 mg tablet,extended release RxNorm: 7614961 TAKE 1 TABLET BY MOUTH EVERY 12 HOURS NEEDED 2021 Inactive Heartburn Relief (famotidine) 10 mg tablet RxNorm: 361767 Take 1 Tablet(s) Oral every morning 021 2020 Inactive omeprazole 20 mg capsule,delayed release RxNorm: 372739 1 Capsule(s) Oral every evening 021 2020 Inactive sertraline 100 mg tablet RxNorm: 365148 2 Tablet(s) Oral every day 021 2020 Inactive levothyroxine 50 mcg tablet RxNorm: 658783 TAKE (1) TABLET BY MOUTH DAILY 021 2020 Inactive metformin 500 mg tablet RxNorm: 172060 1 Tablet(s) Oral two times a day take with 500mg to equal 1000mg 021 2020 Inactive gabapentin 300 mg capsule RxNorm: 829372 TAKE 1 CAPSULE BY MOUTH THREE TIMES A DAY 021 2020 Inactive lisinopril 2.5 mg tablet RxNorm: 679172 TAKE 1 TABLET BY MOUTH DAILY 021 2020 Inactive gabapentin 300 mg capsule RxNorm: 567708 TAKE 1 CAPSULE BY MOUTH THREE TIMES A DAY 021 2020 Inactive Singulair 10 mg tablet RxNorm: 869674 TAKE (1) TABLET BY MOUTH DAILY 021 2020 Inactive metformin 1,000 mg tablet RxNorm: 698801 1 Tablet(s) Oral two times a day 021 2020 Inactive atorvastatin 40 mg tablet RxNorm: 724986 1 Tablet(s) Oral every day 021 2020 Inactive omeprazole 20 mg capsule,delayed release RxNorm: 832560 1 Capsule(s) Oral every evening 2020 Inactive famotidine 10 mg tablet RxNorm: 735676 1 Tablet(s) Oral every morning 021 2020 Inactive Alcohol Prep Pads RxNorm: 352693 USE EACH MORNING 2020 Inactive omeprazole 20 mg capsule,delayed release RxNorm: 542361 1 Capsule(s) Oral two times a day 2021 Inactive omeprazole 20 mg capsule,delayed release RxNorm: 077352 TAKE 1 CAPSULE BY MOUTH EVERY DAY 2021 Inactive Macrobid 100 mg capsule RxNorm: 154969 1 Capsule(s) Oral every 12 hours with food 2020 Inactive omeprazole 20 mg capsule,delayed release RxNorm: 476066 1 Capsule(s) Oral two times a day 2021 Inactive metformin 1,000 mg tablet RxNorm: 256234 1 Tablet(s) Oral two times a day 2020 Inactive start on September 11, 2020 metformin 500 mg tablet RxNorm: 144422 1 Tablet(s) Oral two times a day take with 500mg to equal 1000mg 2019 Inactive gabapentin 300 mg capsule RxNorm: 286984 TAKE 1 CAPSULE BY MOUTH THREE TIMES DAILY 2020 Inactive cetirizine 10 mg tablet RxNorm: 0337198 TAKE (1) TABLET BY MOUTH DAILY 2020 Inactive metformin 500 mg tablet RxNorm: 772143 1 Tablet(s) Oral two times a day 2019 Inactive loperamide 2 mg tablet RxNorm: 642654 1 Tablet(s) Oral as needed take one tablet after each loose stool, maximum of 8 tablets in 24 hours 2021 Inactive Sudafed 12 Hour 120 mg tablet,extended release RxNorm: 6390356 TAKE 1 TABLET BY MOUTH EVERY 12 HOURS NEEDED 2019 Inactive hydrochlorothiazide 25 mg tablet RxNorm: 427071 TAKE (1) TABLET BY MOUTH EVERY DAY 020 2019 Inactive omeprazole 20 mg capsule,delayed release RxNorm: 299114 TAKE 1 CAPSULE BY MOUTH EVERY DAY 020 2020 Inactive metformin 500 mg tablet RxNorm: 506114 1 Tablet(s) Oral every day 020 2019 Inactive True Metrix Glucose Test Strip RxNorm: 1 Test Strips Miscellaneous two times a day as needed No Stop Date Active metformin 500 mg tablet RxNorm: 971265 1 Tablet(s) Oral every day 2019 Inactive diclofenac sodium 75 mg tablet,delayed release RxNorm: 444616 1 Tablet(s) PO BID 2021 Inactive This refill negates all other refills of this medication Sudafed 12 Hour 120 mg tablet,extended release RxNorm: 3219383 TAKE 1 TABLET BY MOUTH EVERY 12 HOURS NEEDED 020 2019 Inactive True Metrix Glucose Test Strip RxNorm: 1 Test Strips Miscellaneous every morning 020 2019 Inactive 100/container True Metrix Glucose Test Strip RxNorm: 1 Test Strips Miscellaneous QA 020 2019 Inactive 100/container loperamide 2 mg tablet RxNorm: 886920 1 Tablet(s) Oral as needed take one tablet after each loose stool, maximum of 8 tablets in 24 hours 020 2019 Inactive cetirizine 10 mg tablet RxNorm: 5483469 1 Tablet(s) PO daily 020 2019 Inactive loperamide 2 mg tablet RxNorm: 474673 1 Tablet(s) Oral as needed take one tablet after each loose stool, maximum of 8 tablets in 24 hours 020 2019 Inactive quetiapine 100 mg tablet RxNorm: 840757 1 Tablet(s) Oral every night at bedtime 020 2019 Inactive levothyroxine 50 mcg tablet RxNorm: 445041 1 Tablet(s) PO daily 020 2020 Inactive gabapentin 300 mg capsule RxNorm: 877515 1 Capsule(s) PO TID 020 2019 Inactive levothyroxine 50 mcg tablet RxNorm: 390846 1 Tablet(s) PO daily 020 2019 Inactive lisinopril 2.5 mg tablet RxNorm: 702598 1 Tablet(s) PO daily 2020 Inactive gabapentin 300 mg capsule RxNorm: 815455 1 Capsule(s) PO TID 2019 Inactive cetirizine 10 mg tablet RxNorm: 6773223 1 Tablet(s) PO daily 2019 Inactive Singulair 10 mg tablet RxNorm: 329630 1 Tablet(s) PO daily 2020 Inactive gentamicin 0.3 % eye drops RxNorm: 151766 1 Drop(s) ophthalmic (eye) four times a day 2019 Inactive gentamicin 0.3 % eye drops RxNorm: 384960 1 Drop(s) ophthalmic (eye) four times a day 2019 Inactive gentamicin 0.3 % eye drops RxNorm: 573802 1 Drop(s) ophthalmic (eye) four times a day 2019 Inactive hydrochlorothiazide 25 mg tablet RxNorm: 553556 1 Tablet(s) Oral every day 2019 Inactive Sudafed 12 Hour 120 mg tablet,extended release RxNorm: 9297406 TAKE (1) TABLET BY MOUTH EVERY 12 HOURS NEEDED 2019 Inactive loperamide 2 mg tablet RxNorm: 757152 1 Tablet(s) Oral as needed take one tablet after each loose stool, maximum of 8 tablets in 24 hours 020 2019 Inactive loperamide 2 mg tablet RxNorm: 263586 1 Tablet(s) Oral as needed take one tablet after each loose stool, maximum of 8 tablets in 24 hours 2019 Inactive atorvastatin 40 mg tablet RxNorm: 157279 1 Tablet(s) Oral every day 020 2020 Inactive quetiapine 100 mg tablet RxNorm: 035827 1 Tablet(s) Oral every night at bedtime 2019 Inactive sertraline 100 mg tablet RxNorm: 716305 1 Tablet(s) Oral 2019 Inactive omeprazole 20 mg capsule,delayed release RxNorm: 311406 1 Capsule(s) Oral every day 020 2019 Inactive amoxicillin 250 mg capsule RxNorm: 010482 1 Capsule(s) Oral three times a day 2019 Inactive multivitamin with iron-mineral tablet RxNorm: 1 Tablet(s) Oral every day 2021 Inactive cetirizine 10 mg tablet RxNorm: 8086580 1 Tablet(s) PO daily 2019 Inactive This refill negates all other refills of this medication. Please do not auto refill Singulair 10 mg tablet RxNorm: 942548 1 Tablet(s) PO daily 2019 Inactive This refill negates all other refills of this medication gabapentin 300 mg capsule RxNorm: 136486 1 Capsule(s) PO TID 2019 Inactive lisinopril 2.5 mg tablet RxNorm: 549903 1 Tablet(s) PO daily 2019 Inactive levothyroxine 50 mcg tablet RxNorm: 900707 1 Tablet(s) PO daily 2019 Inactive This refill negates all other refills of this medication hydrochlorothiazide 25 mg tablet RxNorm: 300822 1 Tablet(s) Oral every day 020 2019 Inactive fenugreek seed extract 500 mg capsule RxNorm: 1 Capsule(s) Oral three times a day 020 2021 Inactive Alcohol Prep Pads RxNorm: 878795 1 Patch TOP QAM 020 2020 Inactive loperamide 2 mg tablet RxNorm: 358105 1 Tablet(s) Oral as needed take one [...] 2019 Inactive hydrochlorothiazide 25 mg tablet RxNorm: 890871 1 Tablet(s) Oral every day 2019 Inactive Sudafed 12 Hour 120 mg tablet,extended release RxNorm: 9685878 1 Tablet(s) Oral every 12 hours as needed 2018 Inactive omeprazole 20 mg capsule,delayed release RxNorm: 648288 1 Capsule(s) Oral every day 2019 Inactive Sudafed 12 Hour 120 mg tablet,extended release RxNorm: 4950431 1 Tablet(s) Oral every 12 hours as needed 2018 Inactive pantoprazole 40 mg tablet,delayed release RxNorm: 916644 1 Tablet(s) Oral every day 2018 Inactive discontinue any other H2Blkr. and PPI albuterol sulfate 2.5 mg/3 mL (0.083 %) solution for nebulization RxNorm: 553405 1 Vial Inhalation every four hours as needed as needed for dyspnea 2019 Inactive 60/box. This refill negates all other refills of this medication. Please do not fill early. Please do not auto refill. Symbicort 160 mcg-4.5 mcg/actuation HFA aerosol inhaler RxNorm: 1974661 2 Puff(s) INH BID 019 No Stop Date Active Alcohol Prep Pads RxNorm: 206957 1 Patch TOP QAM 019 2019 Inactive Ventolin HFA 90 mcg/actuation aerosol inhaler RxNorm: 457489 2 Puff(s) INH QID 019 2019 Inactive Please do not fill early. Please do not auto refill. This refill negates all other refills of this medication True Metrix Glucose Test Strip RxNorm: 1 Test Strips Miscellaneous QAM 019 2019 Inactive 100/container atorvastatin 40 mg tablet RxNorm: 466681 1 Tablet(s) Oral every day 019 2019 Inactive buspirone 7.5 mg tablet RxNorm: 183801 1 Tablet(s) PO BID 019 2020 Inactive This refill negates all other refills of this medication hydrochlorothiazide 12.5 mg tablet RxNorm: 293978 1 Tablet(s) PO QAM 019 2019 Inactive levmetamfetamine 50 mg nasal inhaler RxNorm: 1 Unit(s) NASAL Q3-4H Do not use more than every 3 hours or 8 times/24hours 019 2021 Inactive Please do not auto refill. This refill negates all other refills of this medication Ventolin HFA 90 mcg/actuation aerosol inhaler RxNorm: 752028 2 Puff(s) INH QID 019 2018 Inactive Please do not fill early. Please do not auto refill. This refill negates all other refills of this medication Singulair 10 mg tablet RxNorm: 586777 1 Tablet(s) PO daily 019 2019 Inactive This refill negates all other refills of this medication cetirizine 10 mg tablet RxNorm: 4128453 1 Tablet(s) PO daily 019 2019 Inactive This refill negates all other refills of this medication. Please do not auto refill levothyroxine 50 mcg tablet RxNorm: 951255 1 Tablet(s) PO daily 019 2019 Inactive This refill negates all other refills of this medication diclofenac sodium 75 mg tablet,delayed release RxNorm: 649148 1 Tablet(s) PO BID 019 2019 Inactive This refill negates all other refills of this medication ranitidine 150 mg tablet RxNorm: 612379 1 Tablet(s) PO BID 019 2018 Inactive This refill negates all other refills of this medication Calcium 600-D3 Plus (mag-zinc) 600 mg calcium-800 unit-50 mg tablet RxNorm: 1 Tablet(s) PO daily take an additonal tablet for itching. 019 2018 Inactive This refill negates all other refills of this medication albuterol sulfate 2.5 mg/3 mL (0.083 %) solution for nebulization RxNorm: 813092 1 Vial INH QID 2018 Inactive 60/box. This refill negates all other refills of this medication. Please do not fill early. Please do not auto refill. lisinopril 2.5 mg tablet RxNorm: 866700 1 Tablet(s) PO daily 019 2019 Inactive gabapentin 300 mg capsule RxNorm: 836032 1 Capsule(s) PO TID 019 2019 Inactive atorvastatin 20 mg tablet RxNorm: 173492 1 Tablet(s) PO QHS 2018 Inactive This refill negates all other refills of this medication TRUEplus Lancets 30 gauge RxNorm: 1 Lancets Miscellaneous QAM 019 2018 Inactive 100/box gabapentin 300 mg capsule RxNorm: 347160 1 Capsule(s) PO TID 019 2018 Inactive Flintstones Complete (iron) 18 mg iron chewable tablet RxNorm: 1 Tablet(s) PO daily 019 2021 Inactive This refill negates all other refills of this medication gabapentin 300 mg capsule RxNorm: 524643 1 Capsule(s) PO TID as needed 019 2018 Inactive True Metrix Glucose Test Strip RxNorm: 1 Test Strips Miscellaneous QA 019 2018 Inactive 100/container Alcohol Prep Pads RxNorm: 816162 1 Patch TOP QA 019 2018 Inactive TRUEplus Lancets 30 gauge RxNorm: 1 Lancets Miscellaneous QAM 019 2018 Inactive 100/box lisinopril 2.5 mg tablet RxNorm: 709203 1 Tablet(s) PO daily 019 2018 Inactive ranitidine 150 mg tablet RxNorm: 909589 1 Tablet(s) PO BID 019 2018 Inactive This refill negates all other refills of this medication albuterol sulfate 2.5 mg/3 mL (0.083 %) solution for nebulization RxNorm: 324784 1 Vial INH QID 019 2018 Inactive [...] this medication gabapentin 300 mg capsule RxNorm: 913084 1 Capsule(s) PO TID as needed 019 2018 Inactive atorvastatin 20 mg tablet RxNorm: 845177 1 Tablet(s) PO QHS 019 2018 Inactive This refill negates all other refills of this medication trazodone 50 mg tablet RxNorm: 305264 1 Tablet(s) PO QHS 019 2018 Inactive This refill negates all other refills of this medication Ventolin HFA 90 mcg/actuation aerosol inhaler RxNorm: 869943 2 Puff(s) INH QID 019 2018 Inactive Please do not fill early. Please do not auto refill. This refill negates all other refills of this medication Calcium 600-D3 Plus 600 mg calcium-800 unit-50 mg tablet RxNorm: 1 Tablet(s) PO daily take an additonal tablet for itching. 019 2018 Inactive This refill negates all other refills of this medication Singulair 10 mg tablet RxNorm: 217783 1 Tablet(s) PO daily 019 2018 Inactive This refill negates all other refills of this medication buspirone 7.5 mg tablet RxNorm: 468795 1 Tablet(s) PO BID 019 2018 Inactive This refill negates all other refills of this medication diclofenac sodium 75 mg tablet,delayed release RxNorm: 978164 1 Tablet(s) PO BID 019 2018 Inactive This refill negates all other refills of this medication hydrochlorothiazide 12.5 mg tablet RxNorm: 411277 1 Tablet(s) PO QAM 019 2018 Inactive metoprolol succinate ER 50 mg tablet,extended release 24 hr RxNorm: 901891 1 Tablet(s) PO daily 019 2018 Inactive This refill negates all other refills of this medication levothyroxine 50 mcg tablet RxNorm: 160238 1 Tablet(s) PO daily 019 2018 Inactive This refill negates all other refills of this medication cetirizine 10 mg tablet RxNorm: 2658505 1 Tablet(s) PO daily 019 2018 Inactive This refill negates all other refills of this medication. Please do not auto refill Flintstones Complete (iron) 18 mg iron chewable tablet RxNorm: 1 Tablet(s) PO daily 019 2018 Inactive This refill negates all other refills of this medication buspirone 7.5 mg tablet RxNorm: 567902 1 Tablet(s) PO BID 019 2018 Inactive cetirizine 10 mg tablet RxNorm: 0572340 1 Tablet(s) PO daily 2018 Inactive Guaiasorb DM 10 mg-100 mg/5 mL oral liquid RxNorm: 656494 10 Milliliter(s) PO As needed every 4 hr 2018 Inactive Tatiana Vaporub 4.7 %-1.2 %-2.6 % topical ointment RxNorm: 3852713 1 Application TOP TID 2018 Inactive levmetamfetamine 50 mg nasal inhaler RxNorm: 1 Unit(s) NASAL Q3-4H 2017 Inactive sertraline 50 mg tablet RxNorm: 269560 1 Tablet(s) PO daily 2018 Inactive Please note dose trazodone 50 mg tablet RxNorm: 585685 1 Tablet(s) PO QHS 2018 Inactive sertraline 50 mg tablet RxNorm: 425754 1 Tablet(s) PO daily 2017 Inactive amoxicillin 500 mg tablet RxNorm: 437858 1 Tablet(s) PO Q12H 2017 Inactive albuterol sulfate 2.5 mg/3 mL (0.083 %) solution for nebulization RxNorm: 525586 1 Vial INH QID 2018 Inactive 60/box. Please do not fill early. Please do not auto refill. Prozac 10 mg capsule RxNorm: 255048 1 Capsule(s) PO daily 2017 Inactive buspirone 7.5 mg tablet RxNorm: 869239 1 Tablet(s) PO BID 2018 Inactive gabapentin 300 mg capsule RxNorm: 601030 1 Capsule(s) PO TID as needed 2018 Inactive hydrochlorothiazide 12.5 mg tablet RxNorm: 836198 1 Tablet(s) PO QAM 2018 Inactive ranitidine 150 mg tablet RxNorm: 068219 1 Tablet(s) PO BID 2018 Inactive Macrobid 100 mg capsule RxNorm: 087020 1 Capsule(s) PO Q12H 018 2017 Inactive Singulair 10 mg tablet RxNorm: 056436 1 Tablet(s) PO daily 018 2018 Inactive Ventolin HFA 90 mcg/actuation aerosol inhaler RxNorm: 7001121 2 Puff(s) INH QID 018 2018 Inactive Singulair 10 mg tablet RxNorm: 496508 1 Tablet(s) PO daily 018 2017 Inactive buspirone 7.5 mg tablet RxNorm: 460009 1 Tablet(s) PO BID 018 2017 Inactive Prozac 10 mg capsule RxNorm: 156968 1 Capsule(s) PO daily 018 2017 Inactive diclofenac sodium 75 mg tablet,delayed release RxNorm: 199990 1 Tablet(s) PO BID 018 2017 Inactive lisinopril 2.5 mg tablet RxNorm: 401982 1 Tablet(s) PO daily 018 2017 Inactive Neilmed Pediatric Sinus Rinse Refill packet RxNorm: 1 Unit Dose NASAL PRN 018 2021 Inactive metoprolol succinate ER 50 mg tablet,extended release 24 hr RxNorm: 602624 1 Tablet(s) PO daily 018 2017 Inactive levothyroxine 50 mcg tablet RxNorm: 192878 1 Tablet(s) PO daily 018 2017 Inactive TRUEplus Lancets 30 gauge RxNorm: 1 Lancets Miscellaneous QAM 018 2017 Inactive 100/box Ventolin HFA 90 mcg/actuation aerosol inhaler RxNorm: 019984 2 Puff(s) INH QID 018 2017 Inactive Aleve 220 mg capsule RxNorm: 4350363 1 Capsule(s) PO BID 018 2018 Inactive ranitidine 150 mg tablet RxNorm: 839270 1 Tablet(s) PO BID 018 2017 Inactive gabapentin 300 mg capsule RxNorm: 424611 1 Capsule(s) PO TID as needed 018 2017 Inactive atorvastatin 20 mg tablet RxNorm: 830063 1 Tablet(s) PO QHS 018 2017 Inactive True Metrix Glucose Test Strip RxNorm: 1 Test Strips Miscellaneous [facility] 018 2017 Inactive 50/container Calcium 600-D3 Plus 600 mg calcium-800 unit-50 mg tablet RxNorm: 1 Tablet(s) PO daily take an additonal tablet for itching. 018 2017 Inactive hydrochlorothiazide 12.5 mg tablet RxNorm: 822163 1 Tablet(s) PO QAM 018 2017 Inactive Flintstones Complete (iron) 18 mg iron chewable tablet RxNorm: 1 Tablet(s) PO daily 018 2017 Inactive True Metrix Glucose Meter RxNorm: miscellaneous 019 2018 Inactive sertraline 50 mg tablet RxNorm: 893681 1 Tablet(s) PO daily 020 2019 Inactive loperamide 2 mg tablet RxNorm: 740614 oral 019 2018 Inactive d-mannose oral powder RxNorm: PO 018 2021 Inactive Symbicort 160 mcg-4.5 mcg/actuation HFA aerosol inhaler RxNorm: 5437853 2 Puff(s) INH BID 019 2018 Inactive Medication Administered No Medication Administered data Procedures Procedure Codes Date C[place]us Fany Assessment CPT-4: DSWA 01/02 Fall Risk Assessment CPT-4: DFRA 01/27/2023 Hypertension CPT-4: HTN 01/27/2023 Patient Health Questionnaire CPT-4: DPHQ Pain Screening CPT-4: PAS 2022 Tobacco Assessment/Screening CPT-4: TCA Hypertension CPT-4: HTN 08/17/2022 Cactus Fany Assessment CPT-4: DSWA 04/02 Patient Health [...] CPT-4: VACP Fall Risk Assessment SNOMED CT: 95865092 4 CPT-4: DFRA 01/13/2021 Cactus Fany Assessment CPT-4: DSWA 12/01 Urinalysis, dip stick CPT-4: 58875 09/24/2020 Patient Health Questionnaire CPT-4: DPHQ Electrocardiogram CPT-4: 35267 05/14/2020 Tobacco Assessment/Screening CPT-4: TCA Fall Risk Assessment SNOMED CT: 03088047 4 CPT-4: DFRA 01/01/2020 Functional Assessment CPT-4: DFA 01/01/2020 Cactus Fany Assessment CPT-4: DSWA 11/04 Patient Health Questionnaire CPT-4: DPHQ Cactus Fany Assessment CPT-4: DSWA 10/03 Hypertension CPT-4: HTN 10/17/2019 Fall Risk Assessment SNOMED CT: 66599449 4 CPT-4: DFRA 09/19/2019 Functional Assessment CPT-4: DFA 09/19/2019 Urinalysis, dip stick CPT-4: 64195 06/21/2019 Tobacco Assessment/Screening CPT-4: TCA Patient Health Questionnaire CPT-4: DPHQ AHA/REBECCA Classification Assessment CPT-4: DAHA 04/25/2019 Controlled Substance Report CPT-4: CTRSU 04/03 Urinalysis, dip stick CPT-4: 48195 03/28/2019 Urinalysis, dip stick CPT-4: 84342 03/28/2019 E6W-Goxuzkioetyblyl CPT-4: 98810 Unknown X2I-Wgxmlprzxgkaglu CPT-4: 12536 Unknown U7Z-Sbtaohpvsotczot CPT-4: 13989 Unknown K1J-Bernbdpqkfkyjby CPT-4: 26137 Unknown R1J-Ogbvsgvgoyisbkx CPT-4: 08365 Unknown Z4Y-Yzwjuquxfiwokps CPT-4: 53938 Unknown E6Z-Hjcsswiixewfmio CPT-4: 70939 Unknown B0H-Krbexgafjfztzpp CPT-4: 07561 Unknown A7F-Zcjpkaswzuonavd CPT-4: 50630 Unknown U7D-Kuzxsouyzstizpu CPT-4: 10102 Unknown P7T-Mjwkxepjhgluqdo CPT-4: 98837 Unknown H6D-Zbmrfqrvyxgrgtm CPT-4: 42362 Unknown Gynecology Referral SNOMED CT: 482798018 CPT-4: R14 Unknown Reason For Visit No [...] Referral: [facility] WPtel: [address] [place] [address] [employer] Artist placed a call out to the patient to notify her that it has been recommended that she be seen by a urologist. Patient agreed to be seen, does not have a provider of choice and no transportation issues. [employer] Artist faxed referral and clinical notes to [facility] in [place], [place] near the patient's home. Patient to [...] seen and prefers a provider in the [place] or [facility]. Web Production Artist placed a call out to everyone listed in the area and the only location that was able to accept the patient's insurance was [facility] [address] [place] [address] and spoke with Maylin. Maylin asked that the patient's referral, face sheet and visit notes be faxed to . [employer] Artist faxed over requested documents. Patient appointment confirmation letter generated and mailed to her home address. Patient to call to schedule an appointment. Processed Referral: [facility] WPtel: [address] [place], [place] [id number] Patient notified that it has been advised that she be seen by Neurology. Patient agreed to be seen and prefers to be seen by a provider in the [place], [place] area. Patient denies any concerns with transportation, and prefers to schedule her own appointment. Web Production Artist placed a [facility] [...]
--- OUTSIDE RECORDS SUMMARY | 2024-01-03 23:26 | XMS_ITS | CCD ---
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 Moose Hunter Name Role Phone Palomo KING, Anna Primary Care Provider Unav ailable Unavailable Chronic Care Management Unavaila ble Summary Purpose DataExchange Insurance Providers Payer name Policy type / Coverage type Covered libertarian ID Effective Begin Date Effective End Date SUKI MAYO [id number] Unknown Unknown Family history Mother Diagnosis Age [...] Unknown Disability 05/31/[address]: 506044162 Has never s moked or chewed tobacco 05/31/[address]: 745783191 Never drinks alco hol 05/31/2018 Has the patient ever used illegal drugs? Unknown Has never used illegal drugs 05/31/2018 DNR Order/ Advanced Directive Unknown Full Code 05/31/2018 Allergies, Adverse Reactions, Alerts Substance Reaction Codes Entered Date Inactivated Date Status OxyContin itch, RxNorm: 378056 01/13/2021 No Inactive Da te Active *No [...] ICD-10: E78. 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 long term care pharmacist (current) use of [...] ICD-10: R51 ICD-9: 784.0 10/03/2018 Inactive Other intermission coordinator (current) dr sharma therapy ICD-10: Z79.899 ICD-9: V58.69 04/25/2019 Inactive Type 2 diabetes mellitus wit hout complications ICD-10: E11.9 ICD-9: 250.00 10/03/2018 Inactive Wheezing ICD-10: R06.2 ICD-9: 786.07 08/08/2018 Inactive Abnormal urine finding ICD-10: R82.90 ICD-9: 791.9 09/24/2020 Resolved Abrasion of toe ICD-10: S90.416A ICD-9: 917.0 02/14/2020 Resolved [place] [facility] ICD-10: H10.029 ICD-9: 372.03 12/29/2019 Resolved [...] Fill Instructions lisinopril 2.5 mg tablet RxNorm: 676416 Take 1 Tablet(s) Oral every day 023 2022 [facility] Ozempic 1 mg/dose (4 mg/3 mL) subcutaneous pen injector RxNorm: 7941581 USE 1 UNIT DOSE SUBCUTANEOUSLY ON TUE OF EACH WEEK 023 2022 Inactive omeprazole 40 mg capsule,delayed release RxNorm: 851098 Take 1 Capsule(s) Oral every night at bedtime 023 2022 Inactive gabapentin 300 mg capsule RxNorm: 817962 Take 1 Capsule(s) Oral three times a day 023 2022 Inactive montelukast 10 mg tablet RxNorm: 609336 Take 1 Tablet(s) Oral every day 023 2022 Inactive omeprazole 20 mg capsule,delayed release RxNorm: 668961 Take 1 Capsule(s) Oral every evening 022 2022 Inactive Alcohol Prep Pads RxNorm: 726226 USE EACH MORNING 022 2021 Inactive E11.42 clotrimazole 1 % topical cream RxNorm: 229961 Apply 1 Application Topical two times a day as needed apply to affected area(s) twice daily until healed 2021 Inactive Victoza 2-Sebastián 0.6 mg/0.1 mL (18 mg/3 mL) subcutaneous pen injector RxNorm: 283105 Inject 0.6-1.8 Milligram(s) Subcutaneous once a week Inject 0.6mg/0.1ml week one, 1.2mg/0.2ml week two, 1.8/0.3ml weekly thereafter 022 2021 Inactive ibuprofen 800 mg tablet RxNorm: 449591 Take 1 Tablet(s) Oral Q8H as needed for pain take with food No Stop Date Active Ozempic 1 mg/dose (4 mg/3 mL) subcutaneous pen injector RxNorm: 0018485 Take 1 Unit Dose Subcutaneous QWeek Tuesday 022 2021 Inactive lisinopril 2.5 mg tablet RxNorm: 753006 Take 1 Tablet(s) Oral every day 022 2021 Inactive lisinopril 2.5 mg tablet RxNorm: 542228 Take 1 Tablet(s) Oral every day 022 2022 Inactive hydrochlorothiazide 25 mg tablet RxNorm: 885915 Take 1 Tablet(s) Oral every day 022 2021 Inactive Ozempic 1 mg/dose (4 mg/3 mL) subcutaneous pen injector RxNorm: 5223454 Take 1 Unit Dose Subcutaneous QWeek 022 2021 Inactive famotidine 20 mg tablet RxNorm: 569759 Take 1 Tablet(s) Oral every morning 022 2021 Inactive levothyroxine 50 mcg tablet RxNorm: 723338 Take 1 Tablet(s) Oral every day 022 2021 Inactive atorvastatin 20 mg tablet RxNorm: 192237 Take 1 Tablet(s) Oral every night at bedtime 2021 Inactive Cleocin T 1 % lotion RxNorm: 526268 Take 2 Gram(s) Topical every day 022 2021 Inactive Cleocin T 1 % lotion RxNorm: 204434 Take 2 Gram(s) Topical every day 022 2021 Inactive Ozempic 1 mg/dose (4 mg/3 mL) subcutaneous pen injector RxNorm: 4867626 Take 1 Unit Dose Subcutaneous QWeek 2021 Inactive Ozempic 0.25 mg or 0.5 mg (2 mg/1.5 mL) subcutaneous pen injector RxNorm: 6567402 INJECT 0.5 MGS SUBCUTANEOUSLY EVERY WEEK 022 2021 Inactive omeprazole 20 mg capsule,delayed release RxNorm: 623394 Take 1 Capsule(s) Oral every evening 2021 Inactive levothyroxine 50 mcg tablet RxNorm: 208527 Take 1 Tablet(s) Oral every day 2021 Inactive atorvastatin 20 mg tablet RxNorm: 475334 Take 1 Tablet(s) Oral every night at bedtime 2021 Inactive This refill negates all other refills of this medication lisinopril 2.5 mg tablet RxNorm: 665683 Take 1 Tablet(s) Oral every day 2021 Inactive gabapentin 300 mg capsule RxNorm: 088213 Take 1 Capsule(s) Oral three times a day 022 2021 Inactive montelukast 10 mg tablet RxNorm: 289301 Take 1 Tablet(s) Oral every day 022 2021 Inactive Myrbetriq 50 mg tablet,extended release RxNorm: 6384677 1 Tablet(s) Oral every day No Stop Date Active cholecalciferol (vitamin D3) 50 mcg (2,000 unit) tablet RxNorm: 433421 Take 1 Tablet(s) Oral every day 2022 Inactive Ozempic 0.25 mg or 0.5 mg (2 mg/1.5 mL) subcutaneous pen injector RxNorm: 6212325 inject 0.5 milligrams subcutaneously every week 2021 Inactive Ozempic 0.25 mg or 0.5 mg (2 mg/1.5 mL) subcutaneous pen injector RxNorm: 4052567 Take 0.5 Capsule(s) Injection once a week 2021 Inactive omeprazole 20 mg capsule,delayed release RxNorm: 663249 Take 1 Capsule(s) Oral every evening 2020 Inactive Ozempic 0.25 mg or 0.5 mg (2 mg/1.5 mL) subcutaneous pen injector RxNorm: 1619636 Take 0.25 Milligram(s) Subcutaneous once a week 2021 Inactive Easy Touch Alcohol Prep Pads RxNorm: 153189 USE DIRECTED EACH MORNING 2021 Inactive Probiotic 10 billion cell capsule RxNorm: 7036796 Take 1 Capsule(s) Oral every day 2021 Inactive levothyroxine 50 mcg tablet RxNorm: 062317 Take 1 Tablet(s) Oral every day 2020 Inactive Acid Power Generation Engineer (famotidine) 20 mg tablet RxNorm: 806515 Take 1 Tablet(s) Oral every morning 2020 Inactive Heartburn Relief (famotidine) 10 mg tablet RxNorm: 065001 Take 1 Tablet(s) Oral QAM 2020 Inactive levothyroxine 50 mcg tablet RxNorm: 940699 Take 1 Tablet(s) Oral QD 2020 Inactive Singulair 10 mg tablet RxNorm: 212824 TAKE (1) TABLET BY MOUTH DAILY 021 2020 Inactive metformin 1,000 mg tablet RxNorm: 672999 1 Tablet(s) Oral two times a day 021 2021 Inactive lisinopril 2.5 mg tablet RxNorm: 331795 Take 1 Tablet(s) Oral every day 021 2020 Inactive hydrochlorothiazide 25 mg tablet RxNorm: 024037 Take 1 Tablet(s) Oral every day 021 2020 Inactive ondansetron 4 mg disintegrating tablet RxNorm: 190378 1 Tablet(s) Oral two times a day 021 2020 Inactive Sudafed 12 Hour 120 mg tablet,extended release RxNorm: 8502371 TAKE 1 TABLET BY MOUTH EVERY 12 HOURS NEEDED 2021 Inactive Heartburn Relief (famotidine) 10 mg tablet RxNorm: 146873 Take 1 Tablet(s) Oral every morning 021 2020 Inactive omeprazole 20 mg capsule,delayed release RxNorm: 551190 1 Capsule(s) Oral every evening 021 2020 Inactive sertraline 100 mg tablet RxNorm: 564163 2 Tablet(s) Oral every day 021 2020 Inactive levothyroxine 50 mcg tablet RxNorm: 839475 TAKE (1) TABLET BY MOUTH DAILY 021 2020 Inactive metformin 500 mg tablet RxNorm: 661508 1 Tablet(s) Oral two times a day take with 500mg to equal 1000mg 021 2020 Inactive gabapentin 300 mg capsule RxNorm: 181496 TAKE 1 CAPSULE BY MOUTH THREE TIMES A DAY 021 2020 Inactive lisinopril 2.5 mg tablet RxNorm: 137315 TAKE 1 TABLET BY MOUTH DAILY 021 2020 Inactive gabapentin 300 mg capsule RxNorm: 672610 TAKE 1 CAPSULE BY MOUTH THREE TIMES A DAY 04/05/2020 Inactive Singulair 10 mg tablet RxNorm: 061515 TAKE (1) TABLET BY MOUTH DAILY 021 2020 Inactive metformin 1,000 mg tablet RxNorm: 640864 1 Tablet(s) Oral two times a day 021 2020 Inactive atorvastatin 40 mg tablet RxNorm: 358539 1 Tablet(s) Oral every day 021 2020 Inactive omeprazole 20 mg capsule,delayed release RxNorm: 602490 1 Capsule(s) Oral every evening 021 2020 Inactive famotidine 10 mg tablet RxNorm: 099145 1 Tablet(s) Oral every morning 021 2020 Inactive Alcohol Prep Pads RxNorm: 314956 USE EACH MORNING 021 2020 Inactive omeprazole 20 mg capsule,delayed release RxNorm: 922498 1 Capsule(s) Oral two times a day 2021 Inactive omeprazole 20 mg capsule,delayed release RxNorm: 477842 TAKE 1 CAPSULE BY MOUTH EVERY DAY 2021 Inactive Macrobid 100 mg capsule RxNorm: 427500 1 Capsule(s) Oral every 12 hours with food 2020 Inactive omeprazole 20 mg capsule,delayed release RxNorm: 673471 1 Capsule(s) Oral two times a day 2021 Inactive metformin 1,000 mg tablet RxNorm: 313894 1 Tablet(s) Oral two times a day 2020 Inactive start on September 11, 2020 metformin 500 mg tablet RxNorm: 506888 1 Tablet(s) Oral two times a day take with 500mg to equal 1000mg 2019 Inactive gabapentin 300 mg capsule RxNorm: 143992 TAKE 1 CAPSULE BY MOUTH THREE TIMES DAILY 2020 Inactive cetirizine 10 mg tablet RxNorm: 9539732 TAKE (1) TABLET BY MOUTH DAILY 2020 Inactive metformin 500 mg tablet RxNorm: 122570 1 Tablet(s) Oral two times a day 020 2019 Inactive loperamide 2 mg tablet RxNorm: 438997 1 Tablet(s) Oral as needed take one tablet after each loose stool, maximum of 8 tablets in 24 hours 020 2021 Inactive Sudafed 12 Hour 120 mg tablet,extended release RxNorm: 6900298 TAKE 1 TABLET BY MOUTH EVERY 12 HOURS NEEDED 020 2019 Inactive hydrochlorothiazide 25 mg tablet RxNorm: 681900 TAKE (1) TABLET BY MOUTH EVERY DAY 2019 Inactive omeprazole 20 mg capsule,delayed release RxNorm: 731191 TAKE 1 CAPSULE BY MOUTH EVERY DAY 020 2020 Inactive metformin 500 mg tablet RxNorm: 990719 1 Tablet(s) Oral every day 020 2019 Inactive True Metrix Glucose Test Strip RxNorm: 1 Test Strips Miscellaneous two times a day as needed No Stop Date Active metformin 500 mg tablet RxNorm: 428761 1 Tablet(s) Oral every day 020 2019 Inactive diclofenac sodium 75 mg tablet,delayed release RxNorm: 855616 1 Tablet(s) PO BID 020 2021 Inactive This refill negates all other refills of this medication Sudafed 12 Hour 120 mg tablet,extended release RxNorm: 7665784 TAKE 1 TABLET BY MOUTH EVERY 12 HOURS NEEDED 020 2019 Inactive True Metrix Glucose Test Strip RxNorm: 1 Test Strips Miscellaneous every morning 020 2019 Inactive 100/container True Metrix Glucose Test Strip RxNorm: 1 Test Strips Miscellaneous QA 020 2019 Inactive 100/container loperamide 2 mg tablet RxNorm: 323795 1 Tablet(s) Oral as needed take one tablet after each loose stool, maximum of 8 tablets in 24 hours 020 2019 Inactive cetirizine 10 mg tablet RxNorm: 0382158 1 Tablet(s) PO daily 2019 Inactive loperamide 2 mg tablet RxNorm: 365415 1 Tablet(s) Oral as needed take one tablet after each loose stool, maximum of 8 tablets in 24 hours 2019 Inactive quetiapine 100 mg tablet RxNorm: 306741 1 Tablet(s) Oral every night at bedtime 2019 Inactive levothyroxine 50 mcg tablet RxNorm: 940579 1 Tablet(s) PO daily 2020 Inactive gabapentin 300 mg capsule RxNorm: 051201 1 Capsule(s) PO TID 2019 Inactive levothyroxine 50 mcg tablet RxNorm: 609522 1 Tablet(s) PO daily 2019 Inactive lisinopril 2.5 mg tablet RxNorm: 507389 1 Tablet(s) PO daily 2020 Inactive gabapentin 300 mg capsule RxNorm: 776404 1 Capsule(s) PO TID 2019 Inactive cetirizine 10 mg tablet RxNorm: 7998883 1 Tablet(s) PO daily 2019 Inactive Singulair 10 mg tablet RxNorm: 005375 1 Tablet(s) PO daily 2020 Inactive gentamicin 0.3 % eye drops RxNorm: 008916 1 Drop(s) ophthalmic (eye) four times a day 2019 Inactive gentamicin 0.3 % eye drops RxNorm: 413755 1 Drop(s) ophthalmic (eye) four times a day 2019 Inactive gentamicin 0.3 % eye drops RxNorm: 808884 1 Drop(s) ophthalmic (eye) four times a day 2019 Inactive hydrochlorothiazide 25 mg tablet RxNorm: 296533 1 Tablet(s) Oral every day 2019 Inactive Sudafed 12 Hour 120 mg tablet,extended release RxNorm: 1365846 TAKE (1) TABLET BY MOUTH EVERY 12 HOURS NEEDED 2019 Inactive loperamide 2 mg tablet RxNorm: 707115 1 Tablet(s) Oral as needed take one tablet after each loose stool, maximum of 8 tablets in 24 hours 2019 Inactive loperamide 2 mg tablet RxNorm: 980817 1 Tablet(s) Oral as needed take one tablet after each loose stool, maximum of 8 tablets in 24 hours 020 2019 Inactive atorvastatin 40 mg tablet RxNorm: 866028 1 Tablet(s) Oral every day 2020 Inactive quetiapine 100 mg tablet RxNorm: 350594 1 Tablet(s) Oral every night at bedtime 2019 Inactive sertraline 100 mg tablet RxNorm: 927875 1 Tablet(s) Oral 2019 Inactive omeprazole 20 mg capsule,delayed release RxNorm: 594152 1 Capsule(s) Oral every day 2019 Inactive amoxicillin 250 mg capsule RxNorm: 512113 1 Capsule(s) Oral three times a day 2019 Inactive multivitamin with iron-mineral tablet RxNorm: 1 Tablet(s) Oral every day 2021 Inactive cetirizine 10 mg tablet RxNorm: 7311117 1 Tablet(s) PO daily 2019 Inactive This refill negates all other refills of this medication. Please do not auto refill Singulair 10 mg tablet RxNorm: 068126 1 Tablet(s) PO daily 2019 Inactive This refill negates all other refills of this medication gabapentin 300 mg capsule RxNorm: 485434 1 Capsule(s) PO TID 2019 Inactive lisinopril 2.5 mg tablet RxNorm: 893908 1 Tablet(s) PO daily 2019 Inactive levothyroxine 50 mcg tablet RxNorm: 425006 1 Tablet(s) PO daily 2019 Inactive This refill negates all other refills of this medication hydrochlorothiazide 25 mg tablet RxNorm: 118123 1 Tablet(s) Oral every day 2019 Inactive fenugreek seed extract 500 mg capsule RxNorm: 1 Capsule(s) Oral three times a day 2021 Inactive Alcohol Prep Pads RxNorm: 676422 1 Patch TOP QAM 2020 Inactive loperamide 2 mg tablet RxNorm: 364833 1 Tablet(s) Oral as needed take one [...] 2019 Inactive hydrochlorothiazide 25 mg tablet RxNorm: 288498 1 Tablet(s) Oral every day 2019 Inactive Sudafed 12 Hour 120 mg tablet,extended release RxNorm: 6794501 1 Tablet(s) Oral every 12 hours as needed 019 2018 Inactive omeprazole 20 mg capsule,delayed release RxNorm: 750268 1 Capsule(s) Oral every day 019 2019 Inactive Sudafed 12 Hour 120 mg tablet,extended release RxNorm: 8744542 1 Tablet(s) Oral every 12 hours as needed 019 2018 Inactive pantoprazole 40 mg tablet,delayed release RxNorm: 647436 1 Tablet(s) Oral every day 2018 Inactive discontinue any other H2Blkr. and PPI albuterol sulfate 2.5 mg/3 mL (0.083 %) solution for nebulization RxNorm: 128316 1 Vial Inhalation every four hours as needed as needed for dyspnea 019 2019 Inactive 60/box. This refill negates all other refills of this medication. Please do not fill early. Please do not auto refill. Symbicort 160 mcg-4.5 mcg/actuation HFA aerosol inhaler RxNorm: 1086010 2 Puff(s) INH BID No Stop Date Active Alcohol Prep Pads RxNorm: 515798 1 Patch TOP QAM 019 2019 Inactive Ventolin HFA 90 mcg/actuation aerosol inhaler RxNorm: 583787 2 Puff(s) INH QID 019 2019 Inactive Please do not fill early. Please do not auto refill. This refill negates all other refills of this medication True Metrix Glucose Test Strip RxNorm: 1 Test Strips Miscellaneous QAM 019 2019 Inactive 100/container atorvastatin 40 mg tablet RxNorm: 419454 1 Tablet(s) Oral every day 019 2019 Inactive buspirone 7.5 mg tablet RxNorm: 088829 1 Tablet(s) PO BID 019 2020 Inactive This refill negates all other refills of this medication hydrochlorothiazide 12.5 mg tablet RxNorm: 237755 1 Tablet(s) PO QAM 019 2019 Inactive levmetamfetamine 50 mg nasal inhaler RxNorm: 1 Unit(s) NASAL Q3-4H Do not use more than every 3 hours or 8 times/24hours 019 2021 Inactive Please do not auto refill. This refill negates all other refills of this medication Ventolin HFA 90 mcg/actuation aerosol inhaler RxNorm: 236670 2 Puff(s) INH QID 019 2018 Inactive Please do not fill early. Please do not auto refill. This refill negates all other refills of this medication Singulair 10 mg tablet RxNorm: 982417 1 Tablet(s) PO daily 019 2019 Inactive This refill negates all other refills of this medication cetirizine 10 mg tablet RxNorm: 1618022 1 Tablet(s) PO daily 019 2019 Inactive This refill negates all other refills of this medication. Please do not auto refill levothyroxine 50 mcg tablet RxNorm: 498972 1 Tablet(s) PO daily 019 2019 Inactive This refill negates all other refills of this medication diclofenac sodium 75 mg tablet,delayed release RxNorm: 198276 1 Tablet(s) PO BID 019 2019 Inactive This refill negates all other refills of this medication ranitidine 150 mg tablet RxNorm: 696986 1 Tablet(s) PO BID 019 2018 Inactive This refill negates all other refills of this medication Calcium 600-D3 Plus (mag-zinc) 600 mg calcium-800 unit-50 mg tablet RxNorm: 1 Tablet(s) PO daily take an additonal tablet for itching. 2018 Inactive This refill negates all other refills of this medication albuterol sulfate 2.5 mg/3 mL (0.083 %) solution for nebulization RxNorm: 571047 1 Vial INH QID 2018 Inactive 60/box. This refill negates all other refills of this medication. Please do not fill early. Please do not auto refill. lisinopril 2.5 mg tablet RxNorm: 987745 1 Tablet(s) PO daily 019 2019 Inactive gabapentin 300 mg capsule RxNorm: 616842 1 Capsule(s) PO TID 019 2019 Inactive atorvastatin 20 mg tablet RxNorm: 729396 1 Tablet(s) PO QHS 019 2018 Inactive This refill negates all other refills of this medication TRUEplus Lancets 30 gauge RxNorm: 1 Lancets Miscellaneous QAM 08/272018 Inactive 100/box gabapentin 300 mg capsule RxNorm: 057061 1 Capsule(s) PO TID 2018 Inactive Flmarkmaury Complete (iron) 18 mg iron chewable tablet RxNorm: 1 Tablet(s) PO daily 019 2021 Inactive This refill negates all other refills of this medication gabapentin 300 mg capsule RxNorm: 948918 1 Capsule(s) PO TID as needed 2018 Inactive True Metrix Glucose Test Strip RxNorm: 1 Test Strips Miscellaneous QAM 2018 Inactive 100/container Alcohol Prep Pads RxNorm: 387821 1 Patch TOP QAM 2018 Inactive TRUEplus Lancets 30 gauge RxNorm: 1 Lancets Miscellaneous QAM 2018 Inactive 100/box lisinopril 2.5 mg tablet RxNorm: 701420 1 Tablet(s) PO daily 2018 Inactive ranitidine 150 mg tablet RxNorm: 484396 1 Tablet(s) PO BID 2018 Inactive This refill negates all other refills of this medication albuterol sulfate 2.5 mg/3 mL (0.083 %) solution for nebulization RxNorm: 492522 1 Vial INH QID 2018 Inactive 60/box. [...] this medication gabapentin 300 mg capsule RxNorm: 256149 1 Capsule(s) PO TID as needed 019 2018 Inactive atorvastatin 20 mg tablet RxNorm: 288241 1 Tablet(s) PO QHS 019 2018 Inactive This refill negates all other refills of this medication trazodone 50 mg tablet RxNorm: 545385 1 Tablet(s) PO QHS 019 2018 Inactive This refill negates all other refills of this medication Ventolin HFA 90 mcg/actuation aerosol inhaler RxNorm: 335011 2 Puff(s) INH QID 019 2018 Inactive Please do not fill early. Please do not auto refill. This refill negates all other refills of this medication Calcium 600-D3 Plus 600 mg calcium-800 unit-50 mg tablet RxNorm: 1 Tablet(s) PO daily take an additonal tablet for itching. 019 2018 Inactive This refill negates all other refills of this medication Singulair 10 mg tablet RxNorm: 927015 1 Tablet(s) PO daily 019 2018 Inactive This refill negates all other refills of this medication buspirone 7.5 mg tablet RxNorm: 952791 1 Tablet(s) PO BID 019 2018 Inactive This refill negates all other refills of this medication diclofenac sodium 75 mg tablet,delayed release RxNorm: 308888 1 Tablet(s) PO BID 019 2018 Inactive This refill negates all other refills of this medication hydrochlorothiazide 12.5 mg tablet RxNorm: 038671 1 Tablet(s) PO QAM 019 2018 Inactive metoprolol succinate ER 50 mg tablet,extended release 24 hr RxNorm: 949025 1 Tablet(s) PO daily 019 2018 Inactive This refill negates all other refills of this medication levothyroxine 50 mcg tablet RxNorm: 969702 1 Tablet(s) PO daily 019 2018 Inactive This refill negates all other refills of this medication cetirizine 10 mg tablet RxNorm: 7452845 1 Tablet(s) PO daily 019 2018 Inactive This refill negates all other refills of this medication. Please do not auto refill Flintstones Complete (iron) 18 mg iron chewable tablet RxNorm: 1 Tablet(s) PO daily 2018 Inactive This refill negates all other refills of this medication buspirone 7.5 mg tablet RxNorm: 628248 1 Tablet(s) PO BID 2018 Inactive cetirizine 10 mg tablet RxNorm: 6756318 1 Tablet(s) PO daily 2018 Inactive Guaiasorb DM 10 mg-100 mg/5 mL oral liquid RxNorm: 890423 10 Milliliter(s) PO As needed every 4 hr 2018 Inactive Vicks Vaporub 4.7 %-1.2 %-2.6 % topical ointment RxNorm: 5884447 1 Application TOP TID 2018 Inactive levmetamfetamine 50 mg nasal inhaler RxNorm: 1 Unit(s) NASAL Q3-4H 2017 Inactive sertraline 50 mg tablet RxNorm: 270845 1 Tablet(s) PO daily 2018 Inactive Please note dose trazodone 50 mg tablet RxNorm: 108798 1 Tablet(s) PO QHS 2018 Inactive sertraline 50 mg tablet RxNorm: 416959 1 Tablet(s) PO daily 2017 Inactive amoxicillin 500 mg tablet RxNorm: 681322 1 Tablet(s) PO Q12H 2017 Inactive albuterol sulfate 2.5 mg/3 mL (0.083 %) solution for nebulization RxNorm: 821555 1 Vial INH QID 2018 Inactive 60/box. Please do not fill early. Please do not auto refill. Prozac 10 mg capsule RxNorm: 131624 1 Capsule(s) PO daily 2017 Inactive buspirone 7.5 mg tablet RxNorm: 213085 1 Tablet(s) PO BID /10/ 2019 Inactive gabapentin 300 mg capsule RxNorm: 204139 1 Capsule(s) PO TID as needed 2018 Inactive hydrochlorothiazide 12.5 mg tablet RxNorm: 764411 1 Tablet(s) PO QAM 018 2018 Inactive ranitidine 150 mg tablet RxNorm: 133792 1 Tablet(s) PO BID 018 2018 Inactive Macrobid 100 mg capsule RxNorm: 482566 1 Capsule(s) PO Q12H 018 2017 Inactive Singulair 10 mg tablet RxNorm: 867894 1 Tablet(s) PO daily 2018 Inactive Ventolin HFA 90 mcg/actuation aerosol inhaler RxNorm: 2690562 2 Puff(s) INH QID 018 2018 Inactive Singulair 10 mg tablet RxNorm: 716778 1 Tablet(s) PO daily 018 2017 Inactive buspirone 7.5 mg tablet RxNorm: 416614 1 Tablet(s) PO BID 018 2017 Inactive Prozac 10 mg capsule RxNorm: 518594 1 Capsule(s) PO daily 018 2017 Inactive diclofenac sodium 75 mg tablet,delayed release RxNorm: 348715 1 Tablet(s) PO BID 018 2017 Inactive lisinopril 2.5 mg tablet RxNorm: 837521 1 Tablet(s) PO daily 018 2017 Inactive Neilmed Pediatric Sinus Rinse Refill packet RxNorm: 1 Unit Dose NASAL PRN 018 2021 Inactive metoprolol succinate ER 50 mg tablet,extended release 24 hr RxNorm: 198895 1 Tablet(s) PO daily 018 2017 Inactive levothyroxine 50 mcg tablet RxNorm: 471754 1 Tablet(s) PO daily 018 2017 Inactive TRUEplus Lancets 30 gauge RxNorm: 1 Lancets Miscellaneous QAM 018 2017 Inactive 100/box Ventolin HFA 90 mcg/actuation aerosol inhaler RxNorm: 432103 2 Puff(s) INH QID 018 2017 Inactive Aleve 220 mg capsule RxNorm: 4327231 1 Capsule(s) PO BID 018 2018 Inactive ranitidine 150 mg tablet RxNorm: 263756 1 Tablet(s) PO BID 018 2017 Inactive gabapentin 300 mg capsule RxNorm: 999672 1 Capsule(s) PO TID as needed 018 2017 Inactive atorvastatin 20 mg tablet RxNorm: 926663 1 Tablet(s) PO QHS 018 2017 Inactive True Metrix Glucose Test Strip RxNorm: 1 Test Strips Miscellaneous QAM 018 2017 Inactive 50/container Calcium 600-D3 Plus 600 mg calcium-800 unit-50 mg tablet RxNorm: 1 Tablet(s) PO daily take an additonal tablet for itching. 018 2017 Inactive hydrochlorothiazide 12.5 mg tablet RxNorm: 521743 1 Tablet(s) PO QAM 018 2017 Inactive Flintstones Complete (iron) 18 mg iron chewable tablet RxNorm: 1 Tablet(s) PO daily 018 2017 Inactive True Metrix Glucose Meter RxNorm: miscellaneous 019 2018 Inactive sertraline 50 mg tablet RxNorm: 840321 1 Tablet(s) PO daily 020 2019 Inactive loperamide 2 mg tablet RxNorm: 355471 oral 019 2018 Inactive d-mannose oral powder RxNorm: PO 018 2021 Inactive Symbicort 160 mcg-4.5 mcg/actuation HFA aerosol inhaler RxNorm: 4394039 2 Puff(s) INH BID 019 2018 Inactive Medication Administered No Medication Administered data Procedures Procedure Codes Date Patient Health Questionnaire CPT-4: DPHQ Pain Screening CPT-4: PAS 2022 Tobacco Assessment/Screening CPT-4: TCA Hypertension CPT-4: HTN 08/17/2022 Hannah Fany Assessment CPT-4: DSWA 04/02 Patient Health [...] CPT-4: VACP Fall Risk Assessment SNOMED CT: 73421522 4 CPT-4: DFRA 01/13/2021 Hannah Fany Assessment CPT-4: DSWA 12/01 Urinalysis, dip stick CPT-4: 46307 09/24/2020 Patient Health Questionnaire CPT-4: DPHQ Electrocardiogram CPT-4: 75995 05/14/2020 Tobacco Assessment/Screening CPT-4: TCA Fall Risk Assessment SNOMED CT: 91148321 4 CPT-4: DFRA 01/01/2020 Functional Assessment CPT-4: DFA 01/01/2020 Hannah Fany Assessment CPT-4: DSWA 11/04 Patient Health Questionnaire CPT-4: DPHQ Hannah Fany Assessment CPT-4: DSWA 10/03 Hypertension CPT-4: HTN 10/17/2019 Fall Risk Assessment SNOMED CT: [id number] 4 CPT-4: DFRA 09/19/2019 Functional Assessment CPT-4: DFA 09/19/2019 Urinalysis, dip stick CPT-4: 34779 06/21/2019 Tobacco Assessment/Screening CPT-4: TCA Patient Health Questionnaire CPT-4: DPHQ AHA/REBECCA Classification Assessment CPT-4: DAHA 04/25/2019 Controlled Substance Report CPT-4: CTRSU 04/03 Urinalysis, dip stick CPT-4: 02706 03/28/2019 Urinalysis, dip stick CPT-4: 44452 03/28/2019 F5A-Anndhgjinpjanos CPT-4: 63572 Unknown O3K-Nqhbdgvtbncxtnc CPT-4: 86072 Unknown H6Z-Shgpwigsgvgcoey CPT-4: 96128 Unknown D3Z-Qzlosgwhbxobphx CPT-4: 26066 Unknown M6T-Wwrpoopxnbeqxif CPT-4: 63552 Unknown H8P-Walvoeeuoijqzkz CPT-4: 12461 Unknown M2N-Vvzqszoqljwcfmg CPT-4: 91288 Unknown X1B-Fnsdbvmorsdekgz CPT-4: 54803 Unknown S7C-Pdlgmbgjcgyzpcm CPT-4: 28408 Unknown W1Q-Qsszztxrumgthfg CPT-4: 61520 Unknown Q0S-Okdwgeikybcrfee CPT-4: 60277 Unknown Gynecology Referral SNOMED CT: 382384545 CPT-4: R14 Unknown Reason For Visit No [...] [facility] WPtel: [address] [place] [address] [address] [place] [address] [place] Piano Player placed a call out to the patient to notify her that it has been recommended that she be seen by a urologist. Patient agreed to be seen, does not have a provider of choice and no transportation issues. Piano Player faxed referral and clinical notes to [facility] in [place], [place] near the patient's home. Patient to [...] seen and prefers a provider in the [place] or [place] area. Piano Player placed a call out to everyone listed in the area and the only location that was able to accept the patient's insurance was [facility] [address] [place] [address] and spoke with Maylin. Maylin asked that the patient's referral, face sheet and visit notes be faxed to . Piano Player faxed over requested documents. Patient appointment confirmation letter generated and mailed to her home address. Patient to call to schedule an appointment. Processed Referral: [facility] WPtel: [address] [place], [place] [id number] Patient notified that it has been advised that she be seen by Neurology. Patient agreed to be seen and prefers to be seen by a provider in the [place], [place] area. Patient denies any concerns with transportation, and prefers to schedule her own appointment. Piano Player placed a call out to [facility] and spoke with [...]
--- OUTSIDE RECORDS SUMMARY | 2024-01-03 23:27 | XMS_ITS | CCD ---
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 Unknown Has never used illegal drugs 05/31/2018 DNR Order/ Advanced Directive Unknown Full Code 05/31/2018 Allergies, Adverse Reactions, Alerts Substance Reaction Codes Entered Date Inactivated Date Status OxyContin itch, RxNorm: 354850 01/13/2021 No Inactive Da te Active *No [...] ICD-10: E78. 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 ICD-10: Z79.899 ICD-9: V58.69 04/25/2019 Inactive Type 2 diabetes mellitus wit hout complications ICD-10: E11.9 ICD-9: 250.00 10/03/2018 Inactive Wheezing ICD-10: R06.2 ICD-9: 786.07 08/08/2018 Inactive Abnormal urine finding ICD-10: R82.90 ICD-9: 791.9 09/24/2020 Resolved Abrasion of toe ICD-10: S90.416A ICD-9: 917.0 02/14/2020 Resolved [place] eye ICD-10: H10.029 ICD-9: 372.03 12/29/2019 Resolved [...] Fill Instructions amoxicillin 500 mg tablet RxNorm: 335480 Take 1 Tablet(s) Oral two times a day 023 2022 Inactive omeprazole 40 mg capsule,delayed release RxNorm: 006913 Take 1 Capsule(s) Oral at bed time 023 2022 Inactive Easy Touch Alcohol Prep Pads RxNorm: 598801 USE EACH MORNING 023 2024 Active montelukast 10 mg tablet RxNorm: 821004 Take 1 Tablet(s) Oral every day 023 2022 Inactive gabapentin 300 mg capsule RxNorm: 310174 Take 1 Capsule(s) Oral three times a day 023 2022 Inactive metformin ER 500 mg 24 hr tablet,extended release RxNorm: 0247935 Take 1 Tablet(s) Oral every day with the evening meal 023 2022 Inactive famotidine 20 mg tablet RxNorm: 374947 Take 1 Tablet(s) Oral every morning 023 2022 Inactive levothyroxine 50 mcg tablet RxNorm: 602666 Take 1 Tablet(s) Oral every day 023 2023 Active Msg From [facility]: Approval Requested hydrochlorothiazide 25 mg tablet RxNorm: 735076 Take 1 Tablet(s) Oral every day 023 2023 Active Msg From [facility]: Approval Requested atorvastatin 20 mg tablet RxNorm: 075886 Take 1 Tablet(s) Oral every night at bedtime 023 2023 Active Macrobid 100 mg capsule RxNorm: 562281 1 Capsule(s) Oral every 12 hours with food 023 2022 Inactive omeprazole 40 mg capsule,delayed release RxNorm: 854236 Take 1 Capsule(s) Oral every night at bedtime 023 2022 Inactive trazodone 50 mg tablet RxNorm: 421470 Administer 1 Tablet(s) Oral every night at bedtime 023 No Stop Date Active cholecalciferol (vitamin D3) 50 mcg (2,000 unit) tablet RxNorm: 098744 Take 1 Tablet(s) Oral every day 023 2023 Active Ozempic 1 mg/dose (4 mg/3 mL) subcutaneous pen injector RxNorm: 8155577 USE 1 UNIT DOSE SUBCUTANEOUSLY ON TUE OF EACH WEEK 023 2022 Inactive lisinopril 2.5 mg tablet RxNorm: 965790 Take 1 Tablet(s) Oral every day 023 2022 Inactive Msg From [facility]: Dr. Zapata Requested Ozempic 1 mg/dose (4 mg/3 mL) subcutaneous pen injector RxNorm: 7199482 USE 1 UNIT DOSE SUBCUTANEOUSLY ON TUE OF EACH WEEK 023 2022 Inactive omeprazole 40 mg capsule,delayed release RxNorm: 382535 Take 1 Capsule(s) Oral every night at bedtime 023 2022 Inactive gabapentin 300 mg capsule RxNorm: 522733 Take 1 Capsule(s) Oral three times a day 023 2022 Inactive montelukast 10 mg tablet RxNorm: 955000 Take 1 Tablet(s) Oral every day 023 2022 Inactive omeprazole 20 mg capsule,delayed release RxNorm: 105419 Take 1 Capsule(s) Oral every evening 022 2022 Inactive Alcohol Prep Pads RxNorm: 300533 USE EACH MORNING 022 2021 Inactive E11.42 clotrimazole 1 % topical cream RxNorm: 888550 Apply 1 Application Topical two times a day as needed apply to affected area(s) twice daily until healed 2021 Inactive Victoza 2-Sebastián 0.6 mg/0.1 mL (18 mg/3 mL) subcutaneous pen injector RxNorm: 032613 Inject 0.6-1.8 Milligram(s) Subcutaneous once a week Inject 0.6mg/0.1ml week one, 1.2mg/0.2ml week two, 1.8/0.3ml weekly thereafter 022 2021 Inactive ibuprofen 800 mg tablet RxNorm: 258141 Take 1 Tablet(s) Oral Q8H as needed for pain take with food No Stop Date Active Ozempic 1 mg/dose (4 mg/3 mL) subcutaneous pen injector RxNorm: 7910663 Take 1 Unit Dose Subcutaneous QWeek Tuesday2021 Inactive lisinopril 2.5 mg tablet RxNorm: 130778 Take 1 Tablet(s) Oral every day 022 2021 Inactive lisinopril 2.5 mg tablet RxNorm: 319415 Take 1 Tablet(s) Oral every day 022 2022 Inactive hydrochlorothiazide 25 mg tablet RxNorm: 501070 Take 1 Tablet(s) Oral every day 022 2021 Inactive Ozempic 1 mg/dose (4 mg/3 mL) subcutaneous pen injector RxNorm: 7054134 Take 1 Unit Dose Subcutaneous QWeek 022 2021 Inactive famotidine 20 mg tablet RxNorm: 451732 Take 1 Tablet(s) Oral every morning 2021 Inactive levothyroxine 50 mcg tablet RxNorm: 994186 Take 1 Tablet(s) Oral every day 2021 Inactive atorvastatin 20 mg tablet RxNorm: 224671 Take 1 Tablet(s) Oral every night at bedtime 2021 Inactive Cleocin T 1 % lotion RxNorm: 224108 Take 2 Gram(s) Topical every day 022 2021 Inactive Cleocin T 1 % lotion RxNorm: 869110 Take 2 Gram(s) Topical every day 022 2021 Inactive Ozempic 1 mg/dose (4 mg/3 mL) subcutaneous pen injector RxNorm: 6236682 Take 1 Unit Dose Subcutaneous QWeek 022 2021 Inactive Ozempic 0.25 mg or 0.5 mg (2 mg/1.5 mL) subcutaneous pen injector RxNorm: 8125567 INJECT 0.5 MGS SUBCUTANEOUSLY EVERY WEEK 022 2021 Inactive omeprazole 20 mg capsule,delayed release RxNorm: 322303 Take 1 Capsule(s) Oral every evening 06/29/2 022 06/29/ 2022 Inactive levothyroxine 50 mcg tablet RxNorm: 379165 Take 1 Tablet(s) Oral every day 022 2021 Inactive atorvastatin 20 mg tablet RxNorm: 799364 Take 1 Tablet(s) Oral every night at bedtime 2021 Inactive This refill negates all other refills of this medication lisinopril 2.5 mg tablet RxNorm: 104339 Take 1 Tablet(s) Oral every day 022 2021 Inactive gabapentin 300 mg capsule RxNorm: 905545 Take 1 Capsule(s) Oral three times a day 2021 Inactive montelukast 10 mg tablet RxNorm: 269720 Take 1 Tablet(s) Oral every day 022 2021 Inactive Myrbetriq 50 mg tablet,extended release RxNorm: 5154071 1 Tablet(s) Oral every day No Stop Date Active cholecalciferol (vitamin D3) 50 mcg (2,000 unit) tablet RxNorm: 325848 Take 1 Tablet(s) Oral every day 2022 Inactive Ozempic 0.25 mg or 0.5 mg (2 mg/1.5 mL) subcutaneous pen injector RxNorm: 4156413 inject 0.5 milligrams subcutaneously every week 2021 Inactive Ozempic 0.25 mg or 0.5 mg (2 mg/1.5 mL) subcutaneous pen injector RxNorm: 3263136 Take 0.5 Capsule(s) Injection once a week 022 2021 Inactive omeprazole 20 mg capsule,delayed release RxNorm: 331267 Take 1 Capsule(s) Oral every evening 2020 Inactive Ozempic 0.25 mg or 0.5 mg (2 mg/1.5 mL) subcutaneous pen injector RxNorm: 4523386 Take 0.25 Milligram(s) Subcutaneous once a week 021 2021 Inactive Easy Touch Alcohol Prep Pads RxNorm: 374851 USE DIRECTED EACH MORNING 021 2021 Inactive Probiotic 10 billion cell capsule RxNorm: 7154573 Take 1 Capsule(s) Oral every day 021 2021 Inactive levothyroxine 50 mcg tablet RxNorm: 435124 Take 1 Tablet(s) Oral every day 021 2020 Inactive Acid Cross Tie Tram Loader (famotidine) 20 mg tablet RxNorm: 073776 Take 1 Tablet(s) Oral every morning 021 2020 Inactive Heartburn Relief (famotidine) 10 mg tablet RxNorm: 220345 Take 1 Tablet(s) Oral QAM 021 2020 Inactive levothyroxine 50 mcg tablet RxNorm: 998026 Take 1 Tablet(s) Oral QD 021 2020 Inactive Singulair 10 mg tablet RxNorm: 537048 TAKE (1) TABLET BY MOUTH DAILY 2020 Inactive metformin 1,000 mg tablet RxNorm: 653242 1 Tablet(s) Oral two times a day 021 2021 Inactive lisinopril 2.5 mg tablet RxNorm: 752427 Take 1 Tablet(s) Oral every day 021 2020 Inactive hydrochlorothiazide 25 mg tablet RxNorm: 013758 Take 1 Tablet(s) Oral every day 021 2020 Inactive ondansetron 4 mg disintegrating tablet RxNorm: 032041 1 Tablet(s) Oral two times a day 021 2020 Inactive Sudafed 12 Hour 120 mg tablet,extended release RxNorm: 8026172 TAKE 1 TABLET BY MOUTH EVERY 12 HOURS NEEDED 2021 Inactive Heartburn Relief (famotidine) 10 mg tablet RxNorm: 989893 Take 1 Tablet(s) Oral every morning 021 2020 Inactive omeprazole 20 mg capsule,delayed release RxNorm: 488700 1 Capsule(s) Oral every evening 021 2020 Inactive sertraline 100 mg tablet RxNorm: 075505 2 Tablet(s) Oral every day 021 2020 Inactive levothyroxine 50 mcg tablet RxNorm: 062955 TAKE (1) TABLET BY MOUTH DAILY 021 2020 Inactive metformin 500 mg tablet RxNorm: 830660 1 Tablet(s) Oral two times a day take with 500mg to equal 1000mg 021 2020 Inactive gabapentin 300 mg capsule RxNorm: 294762 TAKE 1 CAPSULE BY MOUTH THREE TIMES A DAY 021 2020 Inactive lisinopril 2.5 mg tablet RxNorm: 683279 TAKE 1 TABLET BY MOUTH DAILY 021 2020 Inactive gabapentin 300 mg capsule RxNorm: 874500 TAKE 1 CAPSULE BY MOUTH THREE TIMES A DAY 021 2020 Inactive Singulair 10 mg tablet RxNorm: 353538 TAKE (1) TABLET BY MOUTH DAILY 021 2020 Inactive metformin 1,000 mg tablet RxNorm: 303633 1 Tablet(s) Oral two times a day 021 2020 Inactive atorvastatin 40 mg tablet RxNorm: 972269 1 Tablet(s) Oral every day 021 2020 Inactive omeprazole 20 mg capsule,delayed release RxNorm: 330029 1 Capsule(s) Oral every evening 021 2020 Inactive famotidine 10 mg tablet RxNorm: 165168 1 Tablet(s) Oral every morning 021 2020 Inactive Alcohol Prep Pads RxNorm: 687729 USE EACH MORNING 021 2020 Inactive omeprazole 20 mg capsule,delayed release RxNorm: 007262 1 Capsule(s) Oral two times a day 021 2021 Inactive omeprazole 20 mg capsule,delayed release RxNorm: 481859 TAKE 1 CAPSULE BY MOUTH EVERY DAY 021 2021 Inactive Macrobid 100 mg capsule RxNorm: 548129 1 Capsule(s) Oral every 12 hours with food 2020 Inactive omeprazole 20 mg capsule,delayed release RxNorm: 113424 1 Capsule(s) Oral two times a day 2021 Inactive metformin 1,000 mg tablet RxNorm: 015571 1 Tablet(s) Oral two times a day 2020 Inactive start on September 11, 2020 metformin 500 mg tablet RxNorm: 992176 1 Tablet(s) Oral two times a day take with 500mg to equal 1000mg 2019 Inactive gabapentin 300 mg capsule RxNorm: 596402 TAKE 1 CAPSULE BY MOUTH THREE TIMES DAILY 2020 Inactive cetirizine 10 mg tablet RxNorm: 3635248 TAKE (1) TABLET BY MOUTH DAILY 2020 Inactive metformin 500 mg tablet RxNorm: 678447 1 Tablet(s) Oral two times a day 2019 Inactive loperamide 2 mg tablet RxNorm: 810202 1 Tablet(s) Oral as needed take one tablet after each loose stool, maximum of 8 tablets in 24 hours 2021 Inactive Sudafed 12 Hour 120 mg tablet,extended release RxNorm: 2494853 TAKE 1 TABLET BY MOUTH EVERY 12 HOURS NEEDED 2019 Inactive hydrochlorothiazide 25 mg tablet RxNorm: 054260 TAKE (1) TABLET BY MOUTH EVERY DAY 2019 Inactive omeprazole 20 mg capsule,delayed release RxNorm: 202912 TAKE 1 CAPSULE BY MOUTH EVERY DAY 2020 Inactive metformin 500 mg tablet RxNorm: 196477 1 Tablet(s) Oral every day 2019 Inactive True Metrix Glucose Test Strip RxNorm: 1 Test Strips Miscellaneous two times a day as needed No Stop Date Active metformin 500 mg tablet RxNorm: 973959 1 Tablet(s) Oral every day 2019 Inactive diclofenac sodium 75 mg tablet,delayed release RxNorm: 162609 1 Tablet(s) PO BID 2021 Inactive This refill negates all other refills of this medication Sudafed 12 Hour 120 mg tablet,extended release RxNorm: 4527708 TAKE 1 TABLET BY MOUTH EVERY 12 HOURS NEEDED 020 2019 Inactive True Metrix Glucose Test Strip RxNorm: 1 Test Strips Miscellaneous every morning 020 2019 Inactive 100/container True Metrix Glucose Test Strip RxNorm: 1 Test Strips Miscellaneous QAM 020 2019 Inactive 100/container loperamide 2 mg tablet RxNorm: 012207 1 Tablet(s) Oral as needed take one tablet after each loose stool, maximum of 8 tablets in 24 hours 020 2019 Inactive cetirizine 10 mg tablet RxNorm: 0518591 1 Tablet(s) PO daily 2019 Inactive loperamide 2 mg tablet RxNorm: 318233 1 Tablet(s) Oral as needed take one tablet after each loose stool, maximum of 8 tablets in 24 hours 2019 Inactive quetiapine 100 mg tablet RxNorm: 182888 1 Tablet(s) Oral every night at bedtime 2019 Inactive levothyroxine 50 mcg tablet RxNorm: 725103 1 Tablet(s) PO daily 020 2020 Inactive gabapentin 300 mg capsule RxNorm: 983063 1 Capsule(s) PO TID 2019 Inactive levothyroxine 50 mcg tablet RxNorm: 028941 1 Tablet(s) PO daily 020 2019 Inactive lisinopril 2.5 mg tablet RxNorm: 686486 1 Tablet(s) PO daily 020 2020 Inactive gabapentin 300 mg capsule RxNorm: 766899 1 Capsule(s) PO TID 020 2019 Inactive cetirizine 10 mg tablet RxNorm: 7696505 1 Tablet(s) PO daily 020 2019 Inactive Singulair 10 mg tablet RxNorm: 170272 1 Tablet(s) PO daily 2020 Inactive gentamicin 0.3 % eye drops RxNorm: 170097 1 Drop(s) ophthalmic (eye) four times a day 2019 Inactive gentamicin 0.3 % eye drops RxNorm: 982639 1 Drop(s) ophthalmic (eye) four times a day 2019 Inactive gentamicin 0.3 % eye drops RxNorm: 799372 1 Drop(s) ophthalmic (eye) four times a day 2019 Inactive hydrochlorothiazide 25 mg tablet RxNorm: 674243 1 Tablet(s) Oral every day 2019 Inactive Sudafed 12 Hour 120 mg tablet,extended release RxNorm: 4590191 TAKE (1) TABLET BY MOUTH EVERY 12 HOURS NEEDED 2019 Inactive loperamide 2 mg tablet RxNorm: 595573 1 Tablet(s) Oral as needed take one tablet after each loose stool, maximum of 8 tablets in 24 hours 2019 Inactive loperamide 2 mg tablet RxNorm: 429337 1 Tablet(s) Oral as needed take one tablet after each loose stool, maximum of 8 tablets in 24 hours 020 2019 Inactive atorvastatin 40 mg tablet RxNorm: 720051 1 Tablet(s) Oral every day 2020 Inactive quetiapine 100 mg tablet RxNorm: 016214 1 Tablet(s) Oral every night at bedtime 2019 Inactive sertraline 100 mg tablet RxNorm: 457167 1 Tablet(s) Oral 2019 Inactive omeprazole 20 mg capsule,delayed release RxNorm: 835359 1 Capsule(s) Oral every day 2019 Inactive amoxicillin 250 mg capsule RxNorm: 962935 1 Capsule(s) Oral three times a day 2019 Inactive multivitamin with iron-mineral tablet RxNorm: 1 Tablet(s) Oral every day 2021 Inactive cetirizine 10 mg tablet RxNorm: 2617164 1 Tablet(s) PO daily 2019 Inactive This refill negates all other refills of this medication. Please do not auto refill Singulair 10 mg tablet RxNorm: 912101 1 Tablet(s) PO daily 2019 Inactive This refill negates all other refills of this medication gabapentin 300 mg capsule RxNorm: 292601 1 Capsule(s) PO TID 2019 Inactive lisinopril 2.5 mg tablet RxNorm: 627632 1 Tablet(s) PO daily 2019 Inactive levothyroxine 50 mcg tablet RxNorm: 401593 1 Tablet(s) PO daily 2019 Inactive This refill negates all other refills of this medication hydrochlorothiazide 25 mg tablet RxNorm: 827207 1 Tablet(s) Oral every day 2019 Inactive fenugreek seed extract 500 mg capsule RxNorm: 1 Capsule(s) Oral three times a day 2021 Inactive Alcohol Prep Pads RxNorm: 975461 1 Patch TOP QAM 2020 Inactive loperamide 2 mg tablet RxNorm: 233786 1 Tablet(s) Oral as needed take one [...] 2019 Inactive hydrochlorothiazide 25 mg tablet RxNorm: 250836 1 Tablet(s) Oral every day 019 2019 Inactive Sudafed 12 Hour 120 mg tablet,extended release RxNorm: 3850123 1 Tablet(s) Oral every 12 hours as needed 019 2018 Inactive omeprazole 20 mg capsule,delayed release RxNorm: 381086 1 Capsule(s) Oral every day 019 2019 Inactive Sudafed 12 Hour 120 mg tablet,extended release RxNorm: 3078806 1 Tablet(s) Oral every 12 hours as needed 019 2018 Inactive pantoprazole 40 mg tablet,delayed release RxNorm: 881822 1 Tablet(s) Oral every day 2018 Inactive discontinue any other H2Blkr. and PPI albuterol sulfate 2.5 mg/3 mL (0.083 %) solution for nebulization RxNorm: 831496 1 Vial Inhalation every four hours as needed as needed for dyspnea 2019 Inactive 60/box. This refill negates all other refills of this medication. Please do not fill early. Please do not auto refill. Symbicort 160 mcg-4.5 mcg/actuation HFA aerosol inhaler RxNorm: 7914062 2 Puff(s) INH BID No Stop Date Active Alcohol Prep Pads RxNorm: 125749 1 Patch TOP QAM 2019 Inactive Ventolin HFA 90 mcg/actuation aerosol inhaler RxNorm: 712070 2 Puff(s) INH QID 2019 Inactive Please do not fill early. Please do not auto refill. This refill negates all other refills of this medication True Metrix Glucose Test Strip RxNorm: 1 Test Strips Miscellaneous QAM 019 2019 Inactive 100/container atorvastatin 40 mg tablet RxNorm: 249650 1 Tablet(s) Oral every day 019 2019 Inactive buspirone 7.5 mg tablet RxNorm: 975751 1 Tablet(s) PO BID 019 2020 Inactive This refill negates all other refills of this medication hydrochlorothiazide 12.5 mg tablet RxNorm: 477087 1 Tablet(s) PO QAM 019 2019 Inactive levmetamfetamine 50 mg nasal inhaler RxNorm: 1 Unit(s) NASAL Q3-4H Do not use more than every 3 hours or 8 times/24hours 019 2021 Inactive Please do not auto refill. This refill negates all other refills of this medication Ventolin HFA 90 mcg/actuation aerosol inhaler RxNorm: 865674 2 Puff(s) INH QID 019 2018 Inactive Please do not fill early. Please do not auto refill. This refill negates all other refills of this medication Singulair 10 mg tablet RxNorm: 772460 1 Tablet(s) PO daily 019 2019 Inactive This refill negates all other refills of this medication cetirizine 10 mg tablet RxNorm: 6678661 1 Tablet(s) PO daily 019 2019 Inactive This refill negates all other refills of this medication. Please do not auto refill levothyroxine 50 mcg tablet RxNorm: 271283 1 Tablet(s) PO daily 019 2019 Inactive This refill negates all other refills of this medication diclofenac sodium 75 mg tablet,delayed release RxNorm: 715095 1 Tablet(s) PO BID 019 2019 Inactive This refill negates all other refills of this medication ranitidine 150 mg tablet RxNorm: 517890 1 Tablet(s) PO BID 019 2018 Inactive This refill negates all other refills of this medication Calcium 600-D3 Plus (mag-zinc) 600 mg calcium-800 unit-50 mg tablet RxNorm: 1 Tablet(s) PO daily take an additonal tablet for itching. 019 2018 Inactive This refill negates all other refills of this medication albuterol sulfate 2.5 mg/3 mL (0.083 %) solution for nebulization RxNorm: 806191 1 Vial INH QID 2018 Inactive 60/box. This refill negates all other refills of this medication. Please do not fill early. Please do not auto refill. lisinopril 2.5 mg tablet RxNorm: 871374 1 Tablet(s) PO daily 2019 Inactive gabapentin 300 mg capsule RxNorm: 164733 1 Capsule(s) PO TID 019 2019 Inactive atorvastatin 20 mg tablet RxNorm: 985703 1 Tablet(s) PO QHS 2018 Inactive This refill negates all other refills of this medication TRUEplus Lancets 30 gauge RxNorm: 1 Lancets Miscellaneous QAM 2018 Inactive 100/box gabapentin 300 mg capsule RxNorm: 578053 1 Capsule(s) PO TID 2018 Inactive Flintstones Complete (iron) 18 mg iron chewable tablet RxNorm: 1 Tablet(s) PO daily 2021 Inactive This refill negates all other refills of this medication gabapentin 300 mg capsule RxNorm: 784162 1 Capsule(s) PO TID as needed 019 2018 Inactive True Metrix Glucose Test Strip RxNorm: 1 Test Strips Miscellaneous QA 2018 Inactive 100/container Alcohol Prep Pads RxNorm: 201381 1 Patch TOP QAM 2018 Inactive TRUEplus Lancets 30 gauge RxNorm: 1 Lancets Miscellaneous QAM 019 2018 Inactive 100/box lisinopril 2.5 mg tablet RxNorm: 091252 1 Tablet(s) PO daily 019 2018 Inactive ranitidine 150 mg tablet RxNorm: 268551 1 Tablet(s) PO BID 019 2018 Inactive This refill negates all other refills of this medication albuterol sulfate 2.5 mg/3 mL (0.083 %) solution for nebulization RxNorm: 051517 1 Vial INH QID 019 2018 Inactive [...] this medication gabapentin 300 mg capsule RxNorm: 281067 1 Capsule(s) PO TID as needed 019 2018 Inactive atorvastatin 20 mg tablet RxNorm: 149706 1 Tablet(s) PO QHS 019 2018 Inactive This refill negates all other refills of this medication trazodone 50 mg tablet RxNorm: 236502 1 Tablet(s) PO QHS 019 2018 Inactive This refill negates all other refills of this medication Ventolin HFA 90 mcg/actuation aerosol inhaler RxNorm: 932056 2 Puff(s) INH QID 019 2018 Inactive Please do not fill early. Please do not auto refill. This refill negates all other refills of this medication Calcium 600-D3 Plus 600 mg calcium-800 unit-50 mg tablet RxNorm: 1 Tablet(s) PO daily take an additonal tablet for itching. 019 2018 Inactive This refill negates all other refills of this medication Singulair 10 mg tablet RxNorm: 686750 1 Tablet(s) PO daily 019 2018 Inactive This refill negates all other refills of this medication buspirone 7.5 mg tablet RxNorm: 826460 1 Tablet(s) PO BID 019 2018 Inactive This refill negates all other refills of this medication diclofenac sodium 75 mg tablet,delayed release RxNorm: 521461 1 Tablet(s) PO BID 01/192018 Inactive This refill negates all other refills of this medication hydrochlorothiazide 12.5 mg tablet RxNorm: 389725 1 Tablet(s) PO QAM 019 2018 Inactive metoprolol succinate ER 50 mg tablet,extended release 24 hr RxNorm: 407845 1 Tablet(s) PO daily 019 2018 Inactive This refill negates all other refills of this medication levothyroxine 50 mcg tablet RxNorm: 373411 1 Tablet(s) PO daily 019 2018 Inactive This refill negates all other refills of this medication cetirizine 10 mg tablet RxNorm: 1442917 1 Tablet(s) PO daily 019 2018 Inactive This refill negates all other refills of this medication. Please do not auto refill Flintstones Complete (iron) 18 mg iron chewable tablet RxNorm: 1 Tablet(s) PO daily 2018 Inactive This refill negates all other refills of this medication buspirone 7.5 mg tablet RxNorm: 491776 1 Tablet(s) PO BID 2018 Inactive cetirizine 10 mg tablet RxNorm: 4905964 1 Tablet(s) PO daily 018 2018 Inactive Guaiasorb DM 10 mg-100 mg/5 mL oral liquid RxNorm: 380132 10 Milliliter(s) PO As needed every 4 hr 2018 Inactive Vicks Vaporub 4.7 %-1.2 %-2.6 % topical ointment RxNorm: 5181941 1 Application TOP TID 2018 Inactive levmetamfetamine 50 mg nasal inhaler RxNorm: 1 Unit(s) NASAL Q3-4H 018 2017 Inactive sertraline 50 mg tablet RxNorm: 101567 1 Tablet(s) PO daily 018 2018 Inactive Please note dose trazodone 50 mg tablet RxNorm: 840801 1 Tablet(s) PO QHS 018 2018 Inactive sertraline 50 mg tablet RxNorm: 365181 1 Tablet(s) PO daily 018 2017 Inactive amoxicillin 500 mg tablet RxNorm: 627694 1 Tablet(s) PO Q12H 018 2017 Inactive albuterol sulfate 2.5 mg/3 mL (0.083 %) solution for nebulization RxNorm: 533251 1 Vial INH QID 018 2018 Inactive 60/box. Please do not fill early. Please do not auto refill. Prozac 10 mg capsule RxNorm: 527012 1 Capsule(s) PO daily 018 2017 Inactive buspirone 7.5 mg tablet RxNorm: 256253 1 Tablet(s) PO BID 018 2018 Inactive gabapentin 300 mg capsule RxNorm: 204891 1 Capsule(s) PO TID as needed 2018 Inactive hydrochlorothiazide 12.5 mg tablet RxNorm: 185339 1 Tablet(s) PO QAM 018 2018 Inactive ranitidine 150 mg tablet RxNorm: 461099 1 Tablet(s) PO BID 018 2018 Inactive Macrobid 100 mg capsule RxNorm: 657041 1 Capsule(s) PO Q12H 018 2017 Inactive Singulair 10 mg tablet RxNorm: 593237 1 Tablet(s) PO daily 018 2018 Inactive Ventolin HFA 90 mcg/actuation aerosol inhaler RxNorm: 3577941 2 Puff(s) INH QID 018 2018 Inactive Singulair 10 mg tablet RxNorm: 086939 1 Tablet(s) PO daily 018 2017 Inactive buspirone 7.5 mg tablet RxNorm: 769612 1 Tablet(s) PO BID 018 2017 Inactive Prozac 10 mg capsule RxNorm: 067014 1 Capsule(s) PO daily 018 2017 Inactive diclofenac sodium 75 mg tablet,delayed release RxNorm: 438332 1 Tablet(s) PO BID 018 2017 Inactive lisinopril 2.5 mg tablet RxNorm: 543191 1 Tablet(s) PO daily 018 2017 Inactive Neilmed Pediatric Sinus Rinse Refill packet RxNorm: 1 Unit Dose NASAL PRN 018 2021 Inactive metoprolol succinate ER 50 mg tablet,extended release 24 hr RxNorm: 585120 1 Tablet(s) PO daily 018 2017 Inactive levothyroxine 50 mcg tablet RxNorm: 006304 1 Tablet(s) PO daily 018 2017 Inactive TRUEplus Lancets 30 gauge RxNorm: 1 Lancets Miscellaneous QAM 018 2017 Inactive 100/box Ventolin HFA 90 mcg/actuation aerosol inhaler RxNorm: 759492 2 Puff(s) INH QID 018 2017 Inactive Aleve 220 mg capsule RxNorm: 4018992 1 Capsule(s) PO BID 018 2018 Inactive ranitidine 150 mg tablet RxNorm: 739018 1 Tablet(s) PO BID 018 2017 Inactive gabapentin 300 mg capsule RxNorm: 447790 1 Capsule(s) PO TID as needed 018 2017 Inactive atorvastatin 20 mg tablet RxNorm: 256429 1 Tablet(s) PO QHS 018 2017 Inactive True Metrix Glucose Test Strip RxNorm: 1 Test Strips Miscellaneous QAM 018 2017 Inactive 50/container Calcium 600-D3 Plus 600 mg calcium-800 unit-50 mg tablet RxNorm: 1 Tablet(s) PO daily take an additonal tablet for itching. 018 2017 Inactive hydrochlorothiazide 12.5 mg tablet RxNorm: 287478 1 Tablet(s) PO QAM 018 2017 Inactive Flintstones Complete (iron) 18 mg iron chewable tablet RxNorm: 1 Tablet(s) PO daily 018 2017 Inactive True Metrix Glucose Meter RxNorm: miscellaneous 019 2018 Inactive sertraline 50 mg tablet RxNorm: 545357 1 Tablet(s) PO daily 020 2019 Inactive loperamide 2 mg tablet RxNorm: 606038 oral 019 2018 Inactive d-mannose oral powder RxNorm: PO 018 2021 Inactive Symbicort 160 mcg-4.5 mcg/actuation HFA aerosol inhaler RxNorm: 8213444 2 Puff(s) INH BID 019 2018 Inactive Medication Administered No Medication Administered data Procedures Procedure Codes Date Urinalysis, dip stick CPT-4: 06346 05/04/2023 [place] Fany Assessment CPT-4: DSWA 01/02 Fall Risk Assessment CPT-4: DFRA 01/27/2023 Hypertension CPT-4: HTN 01/27/2023 Patient Health Questionnaire CPT-4: DPHQ Pain Screening CPT-4: PAS 2022 Tobacco Assessment/Screening CPT-4: TCA Hypertension CPT-4: HTN 08/17/2022 [place] Fany Assessment CPT-4: DSWA 04/02 Patient Health [...] CPT-4: VACP Fall Risk Assessment SNOMED CT: 11356203 4 CPT-4: DFRA 01/13/2021 [place] Fany Assessment CPT-4: DSWA 12/01 Urinalysis, dip stick CPT-4: 90780 09/24/2020 Patient Health Questionnaire CPT-4: DPHQ Electrocardiogram CPT-4: 37546 05/14/2020 Tobacco Assessment/Screening CPT-4: TCA Fall Risk Assessment SNOMED CT: 03868891 4 CPT-4: DFRA 01/01/2020 Functional Assessment CPT-4: DFA 01/01/2020 [place] Fany Assessment CPT-4: DSWA 11/04 Patient Health Questionnaire CPT-4: DPHQ [place] Fany Assessment CPT-4: DSWA 10/03 Hypertension CPT-4: HTN 10/17/2019 Fall Risk Assessment SNOMED CT: 92405095 4 CPT-4: DFRA 09/19/2019 Functional Assessment CPT-4: DFA 09/19/2019 Urinalysis, dip stick CPT-4: 23235 06/21/2019 Tobacco Assessment/Screening CPT-4: TCA Patient Health Questionnaire CPT-4: DPHQ AHA/REBECCA Classification Assessment CPT-4: DAHA 04/25/2019 Controlled Substance Report CPT-4: CTRSU 04/03 Urinalysis, dip stick CPT-4: 11979 03/28/2019 Urinalysis, dip stick CPT-4: 60585 03/28/2019 Z9Y-Qobabitrvhwdful CPT-4: 76265 Unknown H1M-Czawssgitizlloz CPT-4: 97630 Unknown T0Y-Bfvkttnxfcukgge CPT-4: 71666 Unknown X5Z-Kjwwjbobhkktqck CPT-4: 55429 Unknown I7E-Odvnhexshdyzdkq CPT-4: 90669 Unknown R3Z-Xokgfufipzciryq CPT-4: 73634 Unknown Q3M-Vfuzwlsgkspyaup CPT-4: 75663 Unknown J3G-Xybytfdqbzmzrsj CPT-4: 31823 Unknown L0B-Qrclpjvzklhesxf CPT-4: 32798 Unknown K8D-Jeynzgwqtmlaqir CPT-4: 04077 Unknown T1I-Oyifcsiixaygsrc CPT-4: 63751 Unknown F2W-Ufvlwmnflgubymp CPT-4: 96004 Unknown Gynecology Referral SNOMED CT: 937062291 CPT-4: R14 Unknown Reason For Visit No Reason For Visit data Plan of Care Planned Activity Notes Codes Status Date Patient Education: Patient Medication Summary Completed 05/29/2023 Appointment: Anna Culver WPtel: [address] [place] [address] E410 05/04/2023 Appointment: Anna Culver WPtel: [address] [place] [address] E410 01/27/2023 Appointment: Anna Culver WPtel: [address] [place] [address] E410 11/23/2022 Appointment: Anna Culver WPtel: [address] [place] [address] E410 2022 Appointment: Anna Culver WPtel: [address] [place] [address] E410 08/17/2022 Appointment: Anna Culver WPtel: [address] [place] [address] E410 06/23/2022 Appointment: Chivo Bishop WPtel: [address] [place] [address] E410 04/19/2022 Appointment: Chivo Bishop WPtel: [address] [place] [address] E410 02/11/2022 Appointment: Mikey Nair WPtel: [facility] [id number] E410 12/03/2021 Appointment: Chivo Bishop WPtel: [address] [place] [address] E410 11/02/2021 Appointment: Chivo Bishop WPtel: [address] [place] [address] E410 10/07/2021 Appointment: Chivo Bishop WPtel: [address] [place] [address] ETV 09/10/2021 Appointment: Chivo Bishop WPtel: [address] [place] [address] ETV 08/13/2021 Appointment: Chivo Bishop WPtel: [address] [place] [address] ETV 07/06/2021 Appointment: Chivo Bishop WPtel: [address] [place] [address] PHTV 06/10/2021 Appointment: Anna Culver WPtel: [address] [place] [address] ETV 06/02/2021 Appointment: Chivo Bishop WPtel: [address] [place] [address] ETV 05/20/2021 Appointment: Anna Culver WPtel: [address] [place] [address] ETV 04/28/2021 Appointment: Chivo Bishop WPtel: [address] [place] [address] ETV 04/15/2021 Appointment: Anna Culver WPtel: [address] [place] [address] E410 04/01/2021 Appointment: Anna Culver WPtel: [address] [place] [address] ETV 03/24/2021 Appointment: Anna Culver WPtel: [address] [place] [address] ETV 03/13/2021 Appointment: Anna Culver WPtel: [id number] [place] [address] [place] E410 02/11/2021 Appointment: Chivo Bishop WPtel: [address] [place] [address] E410 01/29/2021 Appointment: Anna Culver WPtel: [address] [place] [address] [place] ETV 01/13/2021 Appointment: Anna Culver WPtel: [address] [place] [address] E410 12/17/2020 Appointment: Chivo Bishop WPtel: [address] [place] [address] ETV 11/28/2020 Appointment: Anna Culver WPtel: [address] [place] [address] [place] ETV 11/24/2020 Appointment: Anna Culver WPtel: [address] [place] [address] E410 10/29/2020 Appointment: Anna Culver WPtel: [address] [place] [address] E410 09/24/2020 Appointment: Anna Culver WPtel: [address] [place] [address] [place] ETV 08/26/2020 Appointment: Anna Culver WPtel: [address] [place] [address] ETV 08/19/2020 Appointment: Anna Culver WPtel: [address] [place] [address] [place] ETV 07/22/2020 Appointment: Anna Culver WPtel: [address] [place] [address] ETV 07/08/2020 Appointment: Gianna Birmingham: [facility] [place] ECHO 07/02/2020 Appointment: Anna Culver WPtel: [address] E452 06/11/2020 Appointment: Anna Culver WPtel: [address] [place] [address] E452 05/14/2020 Appointment: Anna Culver WPtel: [address] [place] [address] E452 04/17/2020 Appointment: Anna Culver WPtel: [address] [place] [address] E452 03/21/2020 Appointment: Anna Culver WPtel: [address] [place] [address] E452 02/14/2020 Appointment: Anna Culver WPtel: [address] [place] [address] E452 01/24/2020 Appointment: Anna Culver WPtel: [address] [place] [address] E452 01/01/2020 Appointment: Anna Culver WPtel: [address] [place] [address] E452 11/28/2019 Appointment: Anna Culver WPtel: [address] [place] [address] E452 10/17/2019 Appointment: Anna Culver WPtel: [address] [place] [address] E452 09/19/2019 Appointment: Sudha Hernadez WPtel: [address] [facility] [id number] E452 07/04/2019 Appointment: Sudha Hernadez WPtel: [address] [facility] [id number] E452 06/21/2019 Appointment: Charlene Oropeza WPtel: [address] [facility] b [id number] E452 05/24/2019 Appointment: Bianca Delgadoedo E452 04/27/2019 Appointment: Charlene Oropeza WPtel: [address] [facility] [id number] E452 04/25/2019 Appointment: Rasta Palafox WPtel: [address] [facility] b [id number] E452 03/28/2019 Appointment: Rasta Palafox WPtel: [address] [facility] [id number] E452 02/14/2019 Appointment: Rasta Palafox WPtel: [address] [facility] [id number] E452 01/31/2019 Appointment: Rasta Palafox WPtel: [address] [place] [address] [id number] E420 12/27/2018 Referral: Pending Gynecology Referral Information Referral Processed Referral: Pending Pulmonolog y Referral Information Referral Processed Referral: Pending Psychiatry Referral Information Referral Initiated Referral: Pending Respirator y Services Referral Information Referral Initiated Referral: Pending Ophthalmology Referral Information Referral Initiated Referral: [facility] WPtel: [address] [place] [address] Extension Agent placed a call out to the patient to notify her that it has been recommended that she be seen by a urologist. Patient agreed to be seen, does not have a provider of choice and no transportation issues. Extension Agent faxed referral and clinical notes to [facility] in [place], [place] near the patient's home. Patient to [...] seen and prefers a provider in the [place] or [place] area. Extension Agent placed a call out to everyone listed in the area and the only location that was able to accept the patient's insurance was [facility] [place] [address] and spoke with Maylin. Maylin asked that the patient's referral, face sheet and visit notes be faxed to . Extension Agent faxed over requested documents. Patient appointment confirmation letter generated and mailed to her home address. Patient to call to schedule an appointment. Processed Referral: [facility] Neurolog y WPtel: [address] [place], [place] [id number] Patient notified that it has been advised that she be seen by Neurology. Patient agreed to be seen and prefers to be seen by a provider in the [place], [place] area. Patient denies any concerns with transportation, and prefers to schedule her own appointment. Extension Agent placed a call out to [facility] and spoke with Neeraj P: [...]
--- OUTSIDE RECORDS SUMMARY | 2024-01-03 23:27 | XMS_ITS | CCD ---
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 Unknown Has never used illegal drugs 05/31/2018 DNR Order/ Advanced Directive Unknown Full Code 05/31/2018 Allergies, Adverse Reactions, Alerts Substance Reaction Codes Entered Date Inactivated Date Status OxyContin itch, RxNorm: 706164 01/13/2021 No Inactive Da te Active *No [...] ICD-10: E78. 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 assisted (current) use of non-steroidal anti-inflammatories (NSAID) [...] toe ICD-10: S90.416A ICD-9: 917.0 02/14/2020 Resolved [place] eye ICD-10: H10.029 ICD-9: 372.03 12/29/2019 Resolved [...] (4 mg/3 mL) subcutaneous pen injector RxNorm: 8902931 INJECT 1 UNITS DOSE SUBCUTANEOUSLY ON TUESDAY OF EACH WEEK 023 2022 Inactive cetirizine 10 mg tablet RxNorm: 0134805 TAKE (1) TABLET BY MOUTH DAILY 023 2023 Inactive amoxicillin 500 mg tablet RxNorm: 598920 Take 1 Tablet(s) Oral two times a day 023 2022 Inactive omeprazole 40 mg capsule,delayed release RxNorm: 893134 Take 1 Capsule(s) Oral at bed time 023 2022 Inactive Easy Touch Alcohol Prep Pads RxNorm: 367485 USE EACH MORNING 023 2024 Active montelukast 10 mg tablet RxNorm: 502301 Take 1 Tablet(s) Oral every day 023 2022 Inactive gabapentin 300 mg capsule RxNorm: 494352 Take 1 Capsule(s) Oral three times a day 023 2022 Inactive metformin ER 500 mg 24 hr tablet,extended release RxNorm: 4331204 Take 1 Tablet(s) Oral every day with the evening meal 023 2022 Inactive famotidine 20 mg tablet RxNorm: 586765 Take 1 Tablet(s) Oral every morning 023 2022 Inactive levothyroxine 50 mcg tablet RxNorm: 958676 Take 1 Tablet(s) Oral every day 023 2023 [facility] Requested hydrochlorothiazide 25 mg tablet RxNorm: 571835 Take 1 Tablet(s) Oral every day 023 2023 Active Msg From [facility]: Approval Requested atorvastatin 20 mg tablet RxNorm: 192768 Take 1 Tablet(s) Oral every night at bedtime 023 2023 Active Macrobid 100 mg capsule RxNorm: 033915 1 Capsule(s) Oral every 12 hours with food 023 2022 Inactive omeprazole 40 mg capsule,delayed release RxNorm: 009549 Take 1 Capsule(s) Oral every night at bedtime 023 2022 Inactive trazodone 50 mg tablet RxNorm: 418144 Administer 1 Tablet(s) Oral every night at bedtime 023 No Stop Date Active cholecalciferol (vitamin D3) 50 mcg (2,000 unit) tablet RxNorm: 558890 Take 1 Tablet(s) Oral every day 023 2023 Active Ozempic 1 mg/dose (4 mg/3 mL) subcutaneous pen injector RxNorm: 1035801 USE 1 UNIT DOSE SUBCUTANEOUSLY ON TUE OF EACH WEEK 023 2022 Inactive lisinopril 2.5 mg tablet RxNorm: 161401 Take 1 Tablet(s) Oral every day 023 2022 Inactive Msg From [facility]: Dr. Zapata Requested Ozempic 1 mg/dose (4 mg/3 mL) subcutaneous pen injector RxNorm: 0533033 USE 1 UNIT DOSE SUBCUTANEOUSLY ON TUE OF EACH WEEK 023 2022 Inactive omeprazole 40 mg capsule,delayed release RxNorm: 520766 Take 1 Capsule(s) Oral every night at bedtime 023 2022 Inactive gabapentin 300 mg capsule RxNorm: 442423 Take 1 Capsule(s) Oral three times a day 023 2022 Inactive montelukast 10 mg tablet RxNorm: 836304 Take 1 Tablet(s) Oral every day 023 2022 Inactive omeprazole 20 mg capsule,delayed release RxNorm: 966247 Take 1 Capsule(s) Oral every evening 022 2022 Inactive Alcohol Prep Pads RxNorm: 210114 USE EACH MORNING 022 2021 Inactive E11.42 clotrimazole 1 % topical cream RxNorm: 730774 Apply 1 Application Topical two times a day as needed apply to affected area(s) twice daily until healed 022 2021 Inactive Victoza 2-Sebastián 0.6 mg/0.1 mL (18 mg/3 mL) subcutaneous pen injector RxNorm: 349961 Inject 0.6-1.8 Milligram(s) Subcutaneous once a week Inject 0.6mg/0.1ml week one, 1.2mg/0.2ml week two, 1.8/0.3ml weekly thereafter 022 2021 Inactive ibuprofen 800 mg tablet RxNorm: 362531 Take 1 Tablet(s) Oral Q8H as needed for pain take with food No Stop Date Active Ozempic 1 mg/dose (4 mg/3 mL) subcutaneous pen injector RxNorm: 7389301 Take 1 Unit Dose Subcutaneous QWeek Tuesday2021 Inactive lisinopril 2.5 mg tablet RxNorm: 668880 Take 1 Tablet(s) Oral every day 2021 Inactive lisinopril 2.5 mg tablet RxNorm: 954375 Take 1 Tablet(s) Oral every day 022 2022 Inactive hydrochlorothiazide 25 mg tablet RxNorm: 442130 Take 1 Tablet(s) Oral every day 2021 Inactive Ozempic 1 mg/dose (4 mg/3 mL) subcutaneous pen injector RxNorm: 0443288 Take 1 Unit Dose Subcutaneous QWeek 2021 Inactive famotidine 20 mg tablet RxNorm: 537082 Take 1 Tablet(s) Oral every morning 2021 Inactive levothyroxine 50 mcg tablet RxNorm: 366710 Take 1 Tablet(s) Oral every day 2021 Inactive atorvastatin 20 mg tablet RxNorm: 885955 Take 1 Tablet(s) Oral every night at bedtime 2021 Inactive Cleocin T 1 % lotion RxNorm: 552282 Take 2 Gram(s) Topical every day 022 2021 Inactive Cleocin T 1 % lotion RxNorm: 950350 Take 2 Gram(s) Topical every day 022 2021 Inactive Ozempic 1 mg/dose (4 mg/3 mL) subcutaneous pen injector RxNorm: 6797789 Take 1 Unit Dose Subcutaneous QWeek 022 2021 Inactive Ozempic 0.25 mg or 0.5 mg (2 mg/1.5 mL) subcutaneous pen injector RxNorm: 1631334 INJECT 0.5 MGS SUBCUTANEOUSLY EVERY WEEK 022 2021 Inactive omeprazole 20 mg capsule,delayed release RxNorm: 353898 Take 1 Capsule(s) Oral every evening 022 2021 Inactive levothyroxine 50 mcg tablet RxNorm: 287420 Take 1 Tablet(s) Oral every day 2021 Inactive atorvastatin 20 mg tablet RxNorm: 811411 Take 1 Tablet(s) Oral every night at bedtime 2021 Inactive This refill negates all other refills of this medication lisinopril 2.5 mg tablet RxNorm: 228085 Take 1 Tablet(s) Oral every day 022 2021 Inactive gabapentin 300 mg capsule RxNorm: 010459 Take 1 Capsule(s) Oral three times a day 2021 Inactive montelukast 10 mg tablet RxNorm: 468997 Take 1 Tablet(s) Oral every day 2021 Inactive Myrbetriq 50 mg tablet,extended release RxNorm: 5315855 1 Tablet(s) Oral every day No Stop Date Active cholecalciferol (vitamin D3) 50 mcg (2,000 unit) tablet RxNorm: 055509 Take 1 Tablet(s) Oral every day 2022 Inactive Ozempic 0.25 mg or 0.5 mg (2 mg/1.5 mL) subcutaneous pen injector RxNorm: 6771713 inject 0.5 milligrams subcutaneously every week 2021 Inactive Ozempic 0.25 mg or 0.5 mg (2 mg/1.5 mL) subcutaneous pen injector RxNorm: 3425634 Take 0.5 Capsule(s) Injection once a week 022 2021 Inactive omeprazole 20 mg capsule,delayed release RxNorm: 882995 Take 1 Capsule(s) Oral every evening 2020 Inactive Ozempic 0.25 mg or 0.5 mg (2 mg/1.5 mL) subcutaneous pen injector RxNorm: 2438903 Take 0.25 Milligram(s) Subcutaneous once a week 2021 Inactive Easy Touch Alcohol Prep Pads RxNorm: 953922 USE DIRECTED EACH MORNING 021 2021 Inactive Probiotic 10 billion cell capsule RxNorm: 2052899 Take 1 Capsule(s) Oral every day 2021 Inactive levothyroxine 50 mcg tablet RxNorm: 796342 Take 1 Tablet(s) Oral every day 2020 Inactive Acid Batch Mixing Truck Driver (famotidine) 20 mg tablet RxNorm: 101905 Take 1 Tablet(s) Oral every morning 2020 Inactive Heartburn Relief (famotidine) 10 mg tablet RxNorm: 600838 Take 1 Tablet(s) Oral QAM 021 2020 Inactive levothyroxine 50 mcg tablet RxNorm: 190796 Take 1 Tablet(s) Oral QD 2020 Inactive Singulair 10 mg tablet RxNorm: 337162 TAKE (1) TABLET BY MOUTH DAILY 2020 Inactive metformin 1,000 mg tablet RxNorm: 551977 1 Tablet(s) Oral two times a day 021 2021 Inactive lisinopril 2.5 mg tablet RxNorm: 645024 Take 1 Tablet(s) Oral every day 021 2020 Inactive hydrochlorothiazide 25 mg tablet RxNorm: 597135 Take 1 Tablet(s) Oral every day 021 2020 Inactive ondansetron 4 mg disintegrating tablet RxNorm: 750999 1 Tablet(s) Oral two times a day 021 2020 Inactive Sudafed 12 Hour 120 mg tablet,extended release RxNorm: 5820388 TAKE 1 TABLET BY MOUTH EVERY 12 HOURS NEEDED 021 2021 Inactive Heartburn Relief (famotidine) 10 mg tablet RxNorm: 463034 Take 1 Tablet(s) Oral every morning 021 2020 Inactive omeprazole 20 mg capsule,delayed release RxNorm: 897375 1 Capsule(s) Oral every evening 021 2020 Inactive sertraline 100 mg tablet RxNorm: 712821 2 Tablet(s) Oral every day 021 2020 Inactive levothyroxine 50 mcg tablet RxNorm: 049629 TAKE (1) TABLET BY MOUTH DAILY 021 2020 Inactive metformin 500 mg tablet RxNorm: 621198 1 Tablet(s) Oral two times a day take with 500mg to equal 1000mg 021 2020 Inactive gabapentin 300 mg capsule RxNorm: 757836 TAKE 1 CAPSULE BY MOUTH THREE TIMES A DAY 021 2020 Inactive lisinopril 2.5 mg tablet RxNorm: 015940 TAKE 1 TABLET BY MOUTH DAILY 021 2020 Inactive gabapentin 300 mg capsule RxNorm: 890684 TAKE 1 CAPSULE BY MOUTH THREE TIMES A DAY 021 2020 Inactive Singulair 10 mg tablet RxNorm: 010370 TAKE (1) TABLET BY MOUTH DAILY 021 2020 Inactive metformin 1,000 mg tablet RxNorm: 159960 1 Tablet(s) Oral two times a day 021 2020 Inactive atorvastatin 40 mg tablet RxNorm: 133389 1 Tablet(s) Oral every day 021 2020 Inactive omeprazole 20 mg capsule,delayed release RxNorm: 109280 1 Capsule(s) Oral every evening 021 2020 Inactive famotidine 10 mg tablet RxNorm: 664212 1 Tablet(s) Oral every morning 021 2020 Inactive Alcohol Prep Pads RxNorm: 502257 USE EACH MORNING 021 2020 Inactive omeprazole 20 mg capsule,delayed release RxNorm: 059599 1 Capsule(s) Oral two times a day 021 2021 Inactive omeprazole 20 mg capsule,delayed release RxNorm: 668232 TAKE 1 CAPSULE BY MOUTH EVERY DAY 012021 Inactive Macrobid 100 mg capsule RxNorm: 124311 1 Capsule(s) Oral every 12 hours with food 2020 Inactive omeprazole 20 mg capsule,delayed release RxNorm: 629845 1 Capsule(s) Oral two times a day 2021 Inactive metformin 1,000 mg tablet RxNorm: 240378 1 Tablet(s) Oral two times a day 2020 Inactive start on September 11, 2020 metformin 500 mg tablet RxNorm: 172182 1 Tablet(s) Oral two times a day take with 500mg to equal 1000mg 2019 Inactive gabapentin 300 mg capsule RxNorm: 735248 TAKE 1 CAPSULE BY MOUTH THREE TIMES DAILY 2020 Inactive cetirizine 10 mg tablet RxNorm: 7889489 TAKE (1) TABLET BY MOUTH DAILY 2020 Inactive metformin 500 mg tablet RxNorm: 170963 1 Tablet(s) Oral two times a day 2019 Inactive loperamide 2 mg tablet RxNorm: 645079 1 Tablet(s) Oral as needed take one tablet after each loose stool, maximum of 8 tablets in 24 hours 2021 Inactive Sudafed 12 Hour 120 mg tablet,extended release RxNorm: 0114645 TAKE 1 TABLET BY MOUTH EVERY 12 HOURS NEEDED 2019 Inactive hydrochlorothiazide 25 mg tablet RxNorm: 017439 TAKE (1) TABLET BY MOUTH EVERY DAY 2019 Inactive omeprazole 20 mg capsule,delayed release RxNorm: 753603 TAKE 1 CAPSULE BY MOUTH EVERY DAY 2020 Inactive metformin 500 mg tablet RxNorm: 809125 1 Tablet(s) Oral every day 2019 Inactive True Metrix Glucose Test Strip RxNorm: 1 Test Strips Miscellaneous two times a day as needed No Stop Date Active metformin 500 mg tablet RxNorm: 681887 1 Tablet(s) Oral every day 020 2019 Inactive diclofenac sodium 75 mg tablet,delayed release RxNorm: 588208 1 Tablet(s) PO BID 2021 Inactive This refill negates all other refills of this medication Sudafed 12 Hour 120 mg tablet,extended release RxNorm: 0364355 TAKE 1 TABLET BY MOUTH EVERY 12 HOURS NEEDED 2019 Inactive True Metrix Glucose Test Strip RxNorm: 1 Test Strips Miscellaneous every morning 020 2019 Inactive 100/container True Metrix Glucose Test Strip RxNorm: 1 Test Strips Miscellaneous QAM 020 2019 Inactive 100/container loperamide 2 mg tablet RxNorm: 757480 1 Tablet(s) Oral as needed take one tablet after each loose stool, maximum of 8 tablets in 24 hours 2019 Inactive cetirizine 10 mg tablet RxNorm: 4581215 1 Tablet(s) PO daily 2019 Inactive loperamide 2 mg tablet RxNorm: 557425 1 Tablet(s) Oral as needed take one tablet after each loose stool, maximum of 8 tablets in 24 hours 2019 Inactive quetiapine 100 mg tablet RxNorm: 329323 1 Tablet(s) Oral every night at bedtime 2019 Inactive levothyroxine 50 mcg tablet RxNorm: 753847 1 Tablet(s) PO daily 020 2020 Inactive gabapentin 300 mg capsule RxNorm: 050374 1 Capsule(s) PO TID 020 2019 Inactive levothyroxine 50 mcg tablet RxNorm: 942250 1 Tablet(s) PO daily 2019 Inactive lisinopril 2.5 mg tablet RxNorm: 703791 1 Tablet(s) PO daily 020 2020 Inactive gabapentin 300 mg capsule RxNorm: 750423 1 Capsule(s) PO TID 2019 Inactive cetirizine 10 mg tablet RxNorm: 9731802 1 Tablet(s) PO daily 2019 Inactive Singulair 10 mg tablet RxNorm: 393636 1 Tablet(s) PO daily 2020 Inactive gentamicin 0.3 % eye drops RxNorm: 435927 1 Drop(s) ophthalmic (eye) four times a day 2019 Inactive gentamicin 0.3 % eye drops RxNorm: 000589 1 Drop(s) ophthalmic (eye) four times a day 2019 Inactive gentamicin 0.3 % eye drops RxNorm: 541981 1 Drop(s) ophthalmic (eye) four times a day 2019 Inactive hydrochlorothiazide 25 mg tablet RxNorm: 086009 1 Tablet(s) Oral every day 2019 Inactive Sudafed 12 Hour 120 mg tablet,extended release RxNorm: 3654971 TAKE (1) TABLET BY MOUTH EVERY 12 HOURS NEEDED 2019 Inactive loperamide 2 mg tablet RxNorm: 539610 1 Tablet(s) Oral as needed take one tablet after each loose stool, maximum of 8 tablets in 24 hours 020 2019 Inactive loperamide 2 mg tablet RxNorm: 833810 1 Tablet(s) Oral as needed take one tablet after each loose stool, maximum of 8 tablets in 24 hours 2019 Inactive atorvastatin 40 mg tablet RxNorm: 553906 1 Tablet(s) Oral every day 2020 Inactive quetiapine 100 mg tablet RxNorm: 086213 1 Tablet(s) Oral every night at bedtime 2019 Inactive sertraline 100 mg tablet RxNorm: 235194 1 Tablet(s) Oral 2019 Inactive omeprazole 20 mg capsule,delayed release RxNorm: 437133 1 Capsule(s) Oral every day 2019 Inactive amoxicillin 250 mg capsule RxNorm: 120080 1 Capsule(s) Oral three times a day 020 2019 Inactive multivitamin with iron-mineral tablet RxNorm: 1 Tablet(s) Oral every day 020 2021 Inactive cetirizine 10 mg tablet RxNorm: 2690320 1 Tablet(s) PO daily 020 2019 Inactive This refill negates all other refills of this medication. Please do not auto refill Singulair 10 mg tablet RxNorm: 802932 1 Tablet(s) PO daily 2019 Inactive This refill negates all other refills of this medication gabapentin 300 mg capsule RxNorm: 370609 1 Capsule(s) PO TID 2019 Inactive lisinopril 2.5 mg tablet RxNorm: 053664 1 Tablet(s) PO daily 2019 Inactive levothyroxine 50 mcg tablet RxNorm: 922409 1 Tablet(s) PO daily 2019 Inactive This refill negates all other refills of this medication hydrochlorothiazide 25 mg tablet RxNorm: 215639 1 Tablet(s) Oral every day 2019 Inactive fenugreek seed extract 500 mg capsule RxNorm: 1 Capsule(s) Oral three times a day 2021 Inactive Alcohol Prep Pads RxNorm: 552518 1 Patch TOP QAM 020 2020 Inactive loperamide 2 mg tablet RxNorm: 778106 1 Tablet(s) Oral as needed take one [...] 2019 Inactive hydrochlorothiazide 25 mg tablet RxNorm: 456789 1 Tablet(s) Oral every day 019 2019 Inactive Sudafed 12 Hour 120 mg tablet,extended release RxNorm: 1763107 1 Tablet(s) Oral every 12 hours as needed 2018 Inactive omeprazole 20 mg capsule,delayed release RxNorm: 662244 1 Capsule(s) Oral every day 019 2019 Inactive Sudafed 12 Hour 120 mg tablet,extended release RxNorm: 5371233 1 Tablet(s) Oral every 12 hours as needed 019 2018 Inactive pantoprazole 40 mg tablet,delayed release RxNorm: 013519 1 Tablet(s) Oral every day 2018 Inactive discontinue any other H2Blkr. and PPI albuterol sulfate 2.5 mg/3 mL (0.083 %) solution for nebulization RxNorm: 680757 1 Vial Inhalation every four hours as needed as needed for dyspnea 2019 Inactive 60/box. This refill negates all other refills of this medication. Please do not fill early. Please do not auto refill. Symbicort 160 mcg-4.5 mcg/actuation HFA aerosol inhaler RxNorm: 7109068 2 Puff(s) INH BID No Stop Date Active Alcohol Prep Pads RxNorm: 952676 1 Patch TOP QAM 019 2019 Inactive Ventolin HFA 90 mcg/actuation aerosol inhaler RxNorm: 546587 2 Puff(s) INH QID 2019 Inactive Please do not fill early. Please do not auto refill. This refill negates all other refills of this medication True Metrix Glucose Test Strip RxNorm: 1 Test Strips Miscellaneous QAM 019 2019 Inactive 100/container atorvastatin 40 mg tablet RxNorm: 300038 1 Tablet(s) Oral every day 019 2019 Inactive buspirone 7.5 mg tablet RxNorm: 270816 1 Tablet(s) PO BID 019 2020 Inactive This refill negates all other refills of this medication hydrochlorothiazide 12.5 mg tablet RxNorm: 396966 1 Tablet(s) PO QAM 019 2019 Inactive levmetamfetamine 50 mg nasal inhaler RxNorm: 1 Unit(s) NASAL Q3-4H Do not use more than every 3 hours or 8 times/24hours 019 2021 Inactive Please do not auto refill. This refill negates all other refills of this medication Ventolin HFA 90 mcg/actuation aerosol inhaler RxNorm: 447530 2 Puff(s) INH QID 2018 Inactive Please do not fill early. Please do not auto refill. This refill negates all other refills of this medication Singulair 10 mg tablet RxNorm: 668166 1 Tablet(s) PO daily 019 2019 Inactive This refill negates all other refills of this medication cetirizine 10 mg tablet RxNorm: 1767288 1 Tablet(s) PO daily 019 2019 Inactive This refill negates all other refills of this medication. Please do not auto refill levothyroxine 50 mcg tablet RxNorm: 421142 1 Tablet(s) PO daily 019 2019 Inactive This refill negates all other refills of this medication diclofenac sodium 75 mg tablet,delayed release RxNorm: 340521 1 Tablet(s) PO BID 019 2019 Inactive This refill negates all other refills of this medication ranitidine 150 mg tablet RxNorm: 959404 1 Tablet(s) PO BID 019 2018 Inactive This refill negates all other refills of this medication Calcium 600-D3 Plus (mag-zinc) 600 mg calcium-800 unit-50 mg tablet RxNorm: 1 Tablet(s) PO daily take an additonal tablet for itching. 2018 Inactive This refill negates all other refills of this medication albuterol sulfate 2.5 mg/3 mL (0.083 %) solution for nebulization RxNorm: 803242 1 Vial INH QID 2018 Inactive 60/box. This refill negates all other refills of this medication. Please do not fill early. Please do not auto refill. lisinopril 2.5 mg tablet RxNorm: 599971 1 Tablet(s) PO daily 2019 Inactive gabapentin 300 mg capsule RxNorm: 551333 1 Capsule(s) PO TID 019 2019 Inactive atorvastatin 20 mg tablet RxNorm: 206421 1 Tablet(s) PO QHS 2018 Inactive This refill negates all other refills of this medication TRUEplus Lancets 30 gauge RxNorm: 1 Lancets Miscellaneous QAM 2018 Inactive 100/box gabapentin 300 mg capsule RxNorm: 900706 1 Capsule(s) PO TID 2018 Inactive Flintstones Complete (iron) 18 mg iron chewable tablet RxNorm: 1 Tablet(s) PO daily 019 2021 Inactive This refill negates all other refills of this medication gabapentin 300 mg capsule RxNorm: 849755 1 Capsule(s) PO TID as needed 2018 Inactive True Metrix Glucose Test Strip RxNorm: 1 Test Strips Miscellaneous QAM 019 2018 Inactive 100/container Alcohol Prep Pads RxNorm: 465295 1 Patch TOP QAM 2018 Inactive TRUEplus Lancets 30 gauge RxNorm: 1 Lancets Miscellaneous QAM 019 2018 Inactive 100/box lisinopril 2.5 mg tablet RxNorm: 059144 1 Tablet(s) PO daily 019 2018 Inactive ranitidine 150 mg tablet RxNorm: 450737 1 Tablet(s) PO BID 019 2018 Inactive This refill negates all other refills of this medication albuterol sulfate 2.5 mg/3 mL (0.083 %) solution for nebulization RxNorm: 283626 1 Vial INH QID 019 2018 Inactive [...] this medication gabapentin 300 mg capsule RxNorm: 616736 1 Capsule(s) PO TID as needed 019 2018 Inactive atorvastatin 20 mg tablet RxNorm: 711941 1 Tablet(s) PO QHS 019 2018 Inactive This refill negates all other refills of this medication trazodone 50 mg tablet RxNorm: 193627 1 Tablet(s) PO QHS 019 2018 Inactive This refill negates all other refills of this medication Ventolin HFA 90 mcg/actuation aerosol inhaler RxNorm: 496230 2 Puff(s) INH QID 019 2018 Inactive Please do not fill early. Please do not auto refill. This refill negates all other refills of this medication Calcium 600-D3 Plus 600 mg calcium-800 unit-50 mg tablet RxNorm: 1 Tablet(s) PO daily take an additonal tablet for itching. 019 2018 Inactive This refill negates all other refills of this medication Singulair 10 mg tablet RxNorm: 214455 1 Tablet(s) PO daily 019 2018 Inactive This refill negates all other refills of this medication buspirone 7.5 mg tablet RxNorm: 836235 1 Tablet(s) PO BID 019 2018 Inactive This refill negates all other refills of this medication diclofenac sodium 75 mg tablet,delayed release RxNorm: 177234 1 Tablet(s) PO BID 019 2018 Inactive This refill negates all other refills of this medication hydrochlorothiazide 12.5 mg tablet RxNorm: 932243 1 Tablet(s) PO QAM 019 2018 Inactive metoprolol succinate ER 50 mg tablet,extended release 24 hr RxNorm: 399189 1 Tablet(s) PO daily 019 2018 Inactive This refill negates all other refills of this medication levothyroxine 50 mcg tablet RxNorm: 428825 1 Tablet(s) PO daily 019 2018 Inactive This refill negates all other refills of this medication cetirizine 10 mg tablet RxNorm: 2267206 1 Tablet(s) PO daily 019 2018 Inactive This refill negates all other refills of this medication. Please do not auto refill Flintstones Complete (iron) 18 mg iron chewable tablet RxNorm: 1 Tablet(s) PO daily 019 2018 Inactive This refill negates all other refills of this medication buspirone 7.5 mg tablet RxNorm: 250289 1 Tablet(s) PO BID 019 2018 Inactive cetirizine 10 mg tablet RxNorm: 4108234 1 Tablet(s) PO daily 2018 Inactive Guaiasorb DM 10 mg-100 mg/5 mL oral liquid RxNorm: 492497 10 Milliliter(s) PO As needed every 4 hr 2018 Inactive Vicks Vaporub 4.7 %-1.2 %-2.6 % topical ointment RxNorm: 6280425 1 Application TOP TID 2018 Inactive levmetamfetamine 50 mg nasal inhaler RxNorm: 1 Unit(s) NASAL Q3-4H 2017 Inactive sertraline 50 mg tablet RxNorm: 323413 1 Tablet(s) PO daily 018 2018 Inactive Please note dose trazodone 50 mg tablet RxNorm: 453205 1 Tablet(s) PO QHS 018 2018 Inactive sertraline 50 mg tablet RxNorm: 594708 1 Tablet(s) PO daily 018 2017 Inactive amoxicillin 500 mg tablet RxNorm: 029644 1 Tablet(s) PO Q12H 018 2017 Inactive albuterol sulfate 2.5 mg/3 mL (0.083 %) solution for nebulization RxNorm: 855254 1 Vial INH QID 018 2018 Inactive 60/box. Please do not fill early. Please do not auto refill. Prozac 10 mg capsule RxNorm: 102565 1 Capsule(s) PO daily 018 2017 Inactive buspirone 7.5 mg tablet RxNorm: 449175 1 Tablet(s) PO BID 018 2018 Inactive gabapentin 300 mg capsule RxNorm: 444443 1 Capsule(s) PO TID as needed 2018 Inactive hydrochlorothiazide 12.5 mg tablet RxNorm: 923752 1 Tablet(s) PO QAM 018 2018 Inactive ranitidine 150 mg tablet RxNorm: 514001 1 Tablet(s) PO BID 018 2018 Inactive Macrobid 100 mg capsule RxNorm: 813298 1 Capsule(s) PO Q12H 018 2017 Inactive Singulair 10 mg tablet RxNorm: 829340 1 Tablet(s) PO daily 018 2018 Inactive Ventolin HFA 90 mcg/actuation aerosol inhaler RxNorm: 1815673 2 Puff(s) INH QID 018 2018 Inactive Singulair 10 mg tablet RxNorm: 291805 1 Tablet(s) PO daily 018 2017 Inactive buspirone 7.5 mg tablet RxNorm: 747775 1 Tablet(s) PO BID 018 2017 Inactive Prozac 10 mg capsule RxNorm: 681638 1 Capsule(s) PO daily 018 2017 Inactive diclofenac sodium 75 mg tablet,delayed release RxNorm: 224871 1 Tablet(s) PO BID 018 2017 Inactive lisinopril 2.5 mg tablet RxNorm: 038035 1 Tablet(s) PO daily 018 2017 Inactive Neilmed Pediatric Sinus Rinse Refill packet RxNorm: 1 Unit Dose NASAL PRN 018 2021 Inactive metoprolol succinate ER 50 mg tablet,extended release 24 hr RxNorm: 855431 1 Tablet(s) PO daily 018 2017 Inactive levothyroxine 50 mcg tablet RxNorm: 178637 1 Tablet(s) PO daily 018 2017 Inactive TRUEplus Lancets 30 gauge RxNorm: 1 Lancets Miscellaneous QAM 018 2017 Inactive 100/box Ventolin HFA 90 mcg/actuation aerosol inhaler RxNorm: 440766 2 Puff(s) INH QID 018 2017 Inactive Aleve 220 mg capsule RxNorm: 1181850 1 Capsule(s) PO BID 018 2018 Inactive ranitidine 150 mg tablet RxNorm: 503004 1 Tablet(s) PO BID 018 2017 Inactive gabapentin 300 mg capsule RxNorm: 236865 1 Capsule(s) PO TID as needed 018 2017 Inactive atorvastatin 20 mg tablet RxNorm: 088215 1 Tablet(s) PO QHS 018 2017 Inactive True Metrix Glucose Test Strip RxNorm: 1 Test Strips Miscellaneous QAM 018 2017 Inactive 50/container Calcium 600-D3 Plus 600 mg calcium-800 unit-50 mg tablet RxNorm: 1 Tablet(s) PO daily take an additonal tablet for itching. 018 2017 Inactive hydrochlorothiazide 12.5 mg tablet RxNorm: 540260 1 Tablet(s) PO QAM 018 2017 Inactive Flintstones Complete (iron) 18 mg iron chewable tablet RxNorm: 1 Tablet(s) PO daily 018 2017 Inactive True Metrix Glucose Meter RxNorm: miscellaneous 019 2018 Inactive sertraline 50 mg tablet RxNorm: 240170 1 Tablet(s) PO daily 020 2019 Inactive loperamide 2 mg tablet RxNorm: 298386 oral 019 2018 Inactive d-mannose oral powder RxNorm: PO 018 2021 Inactive Symbicort 160 mcg-4.5 mcg/actuation HFA aerosol inhaler RxNorm: 6659765 2 Puff(s) INH BID 019 2018 Inactive Medication Administered No Medication Administered data Procedures Procedure Codes Date Urinalysis, dip stick CPT-4: 59826 05/04/2023 [place] Assessment CPT-4: DSWA 01/02 Fall Risk Assessment CPT-4: DFRA 01/27/2023 Hypertension CPT-4: HTN 01/27/2023 Patient Health Questionnaire CPT-4: DPHQ Pain Screening CPT-4: PAS 2022 Tobacco Assessment/Screening CPT-4: TCA Hypertension CPT-4: HTN 08/17/2022 [place] Assessment CPT-4: DSWA 04/02 Patient Health [...] CPT-4: VACP Fall Risk Assessment SNOMED CT: 67512299 4 CPT-4: DFRA 01/13/2021 [place] Assessment CPT-4: DSWA 12/01 Urinalysis, dip stick CPT-4: 36783 09/24/2020 Patient Health Questionnaire CPT-4: DPHQ Electrocardiogram CPT-4: 64529 05/14/2020 Tobacco Assessment/Screening CPT-4: TCA Fall Risk Assessment SNOMED CT: 53659861 4 CPT-4: DFRA 01/01/2020 Functional Assessment CPT-4: DFA 01/01/2020 [place] Assessment CPT-4: DSWA 11/04 Patient Health Questionnaire CPT-4: DPHQ [place] Assessment CPT-4: DSWA 10/03 Hypertension CPT-4: HTN 10/17/2019 Fall Risk Assessment SNOMED CT: 87981335 4 CPT-4: DFRA 09/19/2019 Functional Assessment CPT-4: DFA 09/19/2019 Urinalysis, dip stick CPT-4: 59112 06/21/2019 Tobacco Assessment/Screening CPT-4: TCA Patient Health Questionnaire CPT-4: DPHQ AHA/REBECCA Classification Assessment CPT-4: DAHA 04/25/2019 Controlled Substance Report CPT-4: CTRSU 04/03 Urinalysis, dip stick CPT-4: 20745 03/28/2019 Urinalysis, dip stick CPT-4: 62915 03/28/2019 I5X-Jewfpmimuyobksu CPT-4: 94041 Unknown L1I-Igpsacyearcjyhc CPT-4: 02987 Unknown T0V-Lxugzdbgyjafmkh CPT-4: 83854 Unknown E0S-Nqrdgcchsiyrqrv CPT-4: 09233 Unknown O6E-Vvvwrqcgmqjmwgp CPT-4: 27335 Unknown M4A-Rbqokzupezfzabw CPT-4: 03557 Unknown T6Y-Nvdmpjoaizbhxjz CPT-4: 34543 Unknown E9I-Wqtempmnfkjlxeg CPT-4: 16835 Unknown V5Q-Cminsqmbosqkyki CPT-4: 85215 Unknown E4F-Xnwwtjkhemtfwob CPT-4: 81688 Unknown X8V-Tbeunhptccuefmg CPT-4: 26508 Unknown L2T-Ojaauplfwkikbim CPT-4: 81447 Unknown Gynecology Referral SNOMED CT: 733778938 CPT-4: R14 Unknown Reason For Visit No Reason For Visit data Plan of Care Planned Activity Notes Codes Status Date Referral: Pending Gynecology Referral Information Referral Processed Referral: Pending Pulmonolog y Referral Information Referral Processed Referral: Pending Psychiatry Referral Information Referral Initiated Referral: Pending Respirator y Services Referral Information Referral Initiated Referral: Pending Ophthalmol ogy Referral Information Referral Initiated Referral: [facility] WPtel: [address] [facility] [address] Manager Of It placed a call out to the patient to notify her that it has been recommended that she be seen by a urologist. Patient agreed to be seen, does not have a provider of choice and no transportation issues. Manager Of It faxed referral and clinical notes to [facility] in [place], [place] near the patient's home. Patient [...] seen and prefers a provider in the [place] or [facility]. Manager Of It placed a call out to everyone listed in the area and the only location that was able to accept the patient's insurance was [place] [address] [place] [address] and spoke with Maylin. Maylin asked that the patient's referral, face sheet and visit notes be faxed to . Manager Of It faxed over requested documents. Patient appointment confirmation letter generated and mailed to her home address. Patient to call to schedule an appointment. Processed Referral: [facility] WPtel: [address] [place] [address] [place] [address] Patient notified that it has been advised that she be seen by Neurology. Patient agreed to be seen and prefers to be seen by a provider in the [place], [place] area. Patient denies any concerns with transportation, and prefers to schedule her own appointment. Manager Of It placed a call out to [facility] and spoke with Neeraj P: who confirmed that their office is able to accept new patients and the patient's insurance. After confirming the providers fax number, greeting card writer faxed over the patient's referral, [...]
--- OUTSIDE RECORDS SUMMARY | 2024-01-03 23:27 | XMS_ITS | CCD ---
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 Admission Discharge Rn Name Role Phone Palomo KING, Anna Primary Care Provider Unav ailable Unavailable Chronic Care Management Unavaila ble Summary Purpose DataExchange Insurance Providers Payer name Policy type / Coverage type Covered republican ID Effective Begin Date Effective End Date SUKI BUTTS MARIA ESTHER [id number] Unknown Unknown Family history Mother Diagnosis Age [...] Unknown Disability 05/31/[address]: 287765647 Has never s moked or chewed tobacco 05/31/[address]: 597014379 Never drinks alco hol 05/31/2018 Has the patient ever used illegal drugs? 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 ICD-10: Z79.899 ICD-9: V58.69 04/25/2019 Inactive Type 2 diabetes mellitus wit hout complications ICD-10: E11.9 ICD-9: 250.00 10/03/2018 Inactive Wheezing ICD-10: R06.2 ICD-9: 786.07 08/08/2018 Inactive Abnormal urine finding ICD-10: R82.90 ICD-9: 791.9 09/24/2020 Resolved Abrasion of toe ICD-10: S90.416A ICD-9: 917.0 02/14/2020 Resolved [place] [facility] ICD-10: H10.029 ICD-9: 372.03 12/29/2019 Resolved [...] Instructions omeprazole 40 mg capsule,delayed release RxNorm: 044168 Take 1 Capsule(s) Oral at bed time 023 2022 Inactive Easy Touch Alcohol Prep Pads RxNorm: 865929 USE EACH MORNING 023 2024 Active montelukast 10 mg tablet RxNorm: 308734 Take 1 Tablet(s) Oral every day 023 2022 Inactive gabapentin 300 mg capsule RxNorm: 452669 Take 1 Capsule(s) Oral three times a day 023 2022 Inactive metformin ER 500 mg 24 hr tablet,extended release RxNorm: 6169227 Take 1 Tablet(s) Oral every day with the evening meal 023 2022 Inactive famotidine 20 mg tablet RxNorm: 589637 Take 1 Tablet(s) Oral every morning 023 2022 Inactive levothyroxine 50 mcg tablet RxNorm: 220042 Take 1 Tablet(s) Oral every day 023 2023 [facility] Requested hydrochlorothiazide 25 mg tablet RxNorm: 583800 Take 1 Tablet(s) Oral every day 023 2023 [facility]: Approval Requested atorvastatin 20 mg tablet RxNorm: 748347 Take 1 Tablet(s) Oral every night at bedtime 023 2023 Active Macrobid 100 mg capsule RxNorm: 437958 1 Capsule(s) Oral every 12 hours with food 023 2022 Inactive omeprazole 40 mg capsule,delayed release RxNorm: 879970 Take 1 Capsule(s) Oral every night at bedtime 023 2022 Inactive trazodone 50 mg tablet RxNorm: 348015 Administer 1 Tablet(s) Oral every night at bedtime 023 No Stop Date Active cholecalciferol (vitamin D3) 50 mcg (2,000 unit) tablet RxNorm: 768960 Take 1 Tablet(s) Oral every day 023 2023 Active Ozempic 1 mg/dose (4 mg/3 mL) subcutaneous pen injector RxNorm: 1203491 USE 1 UNIT DOSE SUBCUTANEOUSLY ON TUE OF EACH WEEK 023 2022 Inactive lisinopril 2.5 mg tablet RxNorm: 189044 Take 1 Tablet(s) Oral every day 023 2022 [facility] Requested Ozempic 1 mg/dose (4 mg/3 mL) subcutaneous pen injector RxNorm: 8466317 USE 1 UNIT DOSE SUBCUTANEOUSLY ON TUE OF EACH WEEK 023 2022 Inactive omeprazole 40 mg capsule,delayed release RxNorm: 074469 Take 1 Capsule(s) Oral every night at bedtime 023 2022 Inactive gabapentin 300 mg capsule RxNorm: 912822 Take 1 Capsule(s) Oral three times a day 023 2022 Inactive montelukast 10 mg tablet RxNorm: 802989 Take 1 Tablet(s) Oral every day 023 2022 Inactive omeprazole 20 mg capsule,delayed release RxNorm: 935430 Take 1 Capsule(s) Oral every evening 022 2022 Inactive Alcohol Prep Pads RxNorm: 918544 USE EACH MORNING 022 2021 Inactive E11.42 clotrimazole 1 % topical cream RxNorm: 503492 Apply 1 Application Topical two times a day as needed apply to affected area(s) twice daily until healed 2021 Inactive Victoza 2-Sebastián 0.6 mg/0.1 mL (18 mg/3 mL) subcutaneous pen injector RxNorm: 746472 Inject 0.6-1.8 Milligram(s) Subcutaneous once a week Inject 0.6mg/0.1ml week one, 1.2mg/0.2ml week two, 1.8/0.3ml weekly thereafter 022 2021 Inactive ibuprofen 800 mg tablet RxNorm: 532058 Take 1 Tablet(s) Oral Q8H as needed for pain take with food No Stop Date Active Ozempic 1 mg/dose (4 mg/3 mL) subcutaneous pen injector RxNorm: 0332013 Take 1 Unit Dose Subcutaneous QWeek Tuesday 022 2021 Inactive lisinopril 2.5 mg tablet RxNorm: 414834 Take 1 Tablet(s) Oral every day 022 2021 Inactive lisinopril 2.5 mg tablet RxNorm: 193366 Take 1 Tablet(s) Oral every day 022 2022 Inactive hydrochlorothiazide 25 mg tablet RxNorm: 314826 Take 1 Tablet(s) Oral every day 022 2021 Inactive Ozempic 1 mg/dose (4 mg/3 mL) subcutaneous pen injector RxNorm: 3087568 Take 1 Unit Dose Subcutaneous QWeek 2021 Inactive famotidine 20 mg tablet RxNorm: 331216 Take 1 Tablet(s) Oral every morning 022 2021 Inactive levothyroxine 50 mcg tablet RxNorm: 116121 Take 1 Tablet(s) Oral every day 2021 Inactive atorvastatin 20 mg tablet RxNorm: 608632 Take 1 Tablet(s) Oral every night at bedtime 2021 Inactive Cleocin T 1 % lotion RxNorm: 783463 Take 2 Gram(s) Topical every day 022 2021 Inactive Cleocin T 1 % lotion RxNorm: 072249 Take 2 Gram(s) Topical every day 2021 Inactive Ozempic 1 mg/dose (4 mg/3 mL) subcutaneous pen injector RxNorm: 7869654 Take 1 Unit Dose Subcutaneous QWeek 022 2021 Inactive Ozempic 0.25 mg or 0.5 mg (2 mg/1.5 mL) subcutaneous pen injector RxNorm: 1997660 INJECT 0.5 MGS SUBCUTANEOUSLY EVERY WEEK 022 2021 Inactive omeprazole 20 mg capsule,delayed release RxNorm: 989459 Take 1 Capsule(s) Oral every evening 2021 Inactive levothyroxine 50 mcg tablet RxNorm: 581824 Take 1 Tablet(s) Oral every day 022 2021 Inactive atorvastatin 20 mg tablet RxNorm: 442894 Take 1 Tablet(s) Oral every night at bedtime 022 2021 Inactive This refill negates all other refills of this medication lisinopril 2.5 mg tablet RxNorm: 931351 Take 1 Tablet(s) Oral every day 022 2021 Inactive gabapentin 300 mg capsule RxNorm: 530240 Take 1 Capsule(s) Oral three times a day 022 2021 Inactive montelukast 10 mg tablet RxNorm: 921325 Take 1 Tablet(s) Oral every day 2021 Inactive Myrbetriq 50 mg tablet,extended release RxNorm: 4380882 1 Tablet(s) Oral every day No Stop Date Active cholecalciferol (vitamin D3) 50 mcg (2,000 unit) tablet RxNorm: 686281 Take 1 Tablet(s) Oral every day 2022 Inactive Ozempic 0.25 mg or 0.5 mg (2 mg/1.5 mL) subcutaneous pen injector RxNorm: 2603900 inject 0.5 milligrams subcutaneously every week 022 2021 Inactive Ozempic 0.25 mg or 0.5 mg (2 mg/1.5 mL) subcutaneous pen injector RxNorm: 1700717 Take 0.5 Capsule(s) Injection once a week 022 2021 Inactive omeprazole 20 mg capsule,delayed release RxNorm: 877708 Take 1 Capsule(s) Oral every evening 2020 Inactive Ozempic 0.25 mg or 0.5 mg (2 mg/1.5 mL) subcutaneous pen injector RxNorm: 2533497 Take 0.25 Milligram(s) Subcutaneous once a week 021 2021 Inactive Easy Touch Alcohol Prep Pads RxNorm: 039915 USE DIRECTED EACH MORNING 021 2021 Inactive Probiotic 10 billion cell capsule RxNorm: 2038792 Take 1 Capsule(s) Oral every day 021 2021 Inactive levothyroxine 50 mcg tablet RxNorm: 221109 Take 1 Tablet(s) Oral every day 2020 Inactive Acid Adhesive Sprayer (famotidine) 20 mg tablet RxNorm: 258378 Take 1 Tablet(s) Oral every morning 021 2020 Inactive Heartburn Relief (famotidine) 10 mg tablet RxNorm: 153295 Take 1 Tablet(s) Oral QAM 021 2020 Inactive levothyroxine 50 mcg tablet RxNorm: 195793 Take 1 Tablet(s) Oral QD 2020 Inactive Singulair 10 mg tablet RxNorm: 042533 TAKE (1) TABLET BY MOUTH DAILY 2020 Inactive metformin 1,000 mg tablet RxNorm: 573920 1 Tablet(s) Oral two times a day 2021 Inactive lisinopril 2.5 mg tablet RxNorm: 588014 Take 1 Tablet(s) Oral every day 2020 Inactive hydrochlorothiazide 25 mg tablet RxNorm: 270534 Take 1 Tablet(s) Oral every day 021 2020 Inactive ondansetron 4 mg disintegrating tablet RxNorm: 446569 1 Tablet(s) Oral two times a day 021 2020 Inactive Sudafed 12 Hour 120 mg tablet,extended release RxNorm: 9246979 TAKE 1 TABLET BY MOUTH EVERY 12 HOURS NEEDED 2021 Inactive Heartburn Relief (famotidine) 10 mg tablet RxNorm: 456432 Take 1 Tablet(s) Oral every morning 021 2020 Inactive omeprazole 20 mg capsule,delayed release RxNorm: 574537 1 Capsule(s) Oral every evening 021 2020 Inactive sertraline 100 mg tablet RxNorm: 835983 2 Tablet(s) Oral every day 021 2020 Inactive levothyroxine 50 mcg tablet RxNorm: 442966 TAKE (1) TABLET BY MOUTH DAILY 021 2020 Inactive metformin 500 mg tablet RxNorm: 319638 1 Tablet(s) Oral two times a day take with 500mg to equal 1000mg 021 2020 Inactive gabapentin 300 mg capsule RxNorm: 771594 TAKE 1 CAPSULE BY MOUTH THREE TIMES A DAY 021 2020 Inactive lisinopril 2.5 mg tablet RxNorm: 994027 TAKE 1 TABLET BY MOUTH DAILY 021 2020 Inactive gabapentin 300 mg capsule RxNorm: 143203 TAKE 1 CAPSULE BY MOUTH THREE TIMES A DAY 021 2020 Inactive Singulair 10 mg tablet RxNorm: 192820 TAKE (1) TABLET BY MOUTH DAILY 021 2020 Inactive metformin 1,000 mg tablet RxNorm: 880185 1 Tablet(s) Oral two times a day 021 2020 Inactive atorvastatin 40 mg tablet RxNorm: 279700 1 Tablet(s) Oral every day 2020 Inactive omeprazole 20 mg capsule,delayed release RxNorm: 098653 1 Capsule(s) Oral every evening 021 2020 Inactive famotidine 10 mg tablet RxNorm: 947318 1 Tablet(s) Oral every morning 021 2020 Inactive Alcohol Prep Pads RxNorm: 541641 USE EACH MORNING 021 2020 Inactive omeprazole 20 mg capsule,delayed release RxNorm: 995233 1 Capsule(s) Oral two times a day 2021 Inactive omeprazole 20 mg capsule,delayed release RxNorm: 360454 TAKE 1 CAPSULE BY MOUTH EVERY DAY 2021 Inactive Macrobid 100 mg capsule RxNorm: 749308 1 Capsule(s) Oral every 12 hours with food 2020 Inactive omeprazole 20 mg capsule,delayed release RxNorm: 544763 1 Capsule(s) Oral two times a day 2021 Inactive metformin 1,000 mg tablet RxNorm: 216102 1 Tablet(s) Oral two times a day 2020 Inactive start on September 11, 2020 metformin 500 mg tablet RxNorm: 732328 1 Tablet(s) Oral two times a day take with 500mg to equal 1000mg 2019 Inactive gabapentin 300 mg capsule RxNorm: 601570 TAKE 1 CAPSULE BY MOUTH THREE TIMES DAILY 2020 Inactive cetirizine 10 mg tablet RxNorm: 3527492 TAKE (1) TABLET BY MOUTH DAILY 2020 Inactive metformin 500 mg tablet RxNorm: 864095 1 Tablet(s) Oral two times a day 2019 Inactive loperamide 2 mg tablet RxNorm: 640743 1 Tablet(s) Oral as needed take one tablet after each loose stool, maximum of 8 tablets in 24 hours 2021 Inactive Sudafed 12 Hour 120 mg tablet,extended release RxNorm: 1246339 TAKE 1 TABLET BY MOUTH EVERY 12 HOURS NEEDED 2019 Inactive hydrochlorothiazide 25 mg tablet RxNorm: 145782 TAKE (1) TABLET BY MOUTH EVERY DAY 2019 Inactive omeprazole 20 mg capsule,delayed release RxNorm: 466421 TAKE 1 CAPSULE BY MOUTH EVERY DAY 2020 Inactive metformin 500 mg tablet RxNorm: 283562 1 Tablet(s) Oral every day 2019 Inactive True Metrix Glucose Test Strip RxNorm: 1 Test Strips Miscellaneous two times a day as needed No Stop Date Active metformin 500 mg tablet RxNorm: 728406 1 Tablet(s) Oral every day 2019 Inactive diclofenac sodium 75 mg tablet,delayed release RxNorm: 538730 1 Tablet(s) PO BID 2021 Inactive This refill negates all other refills of this medication Sudafed 12 Hour 120 mg tablet,extended release RxNorm: 6877490 TAKE 1 TABLET BY MOUTH EVERY 12 HOURS NEEDED 020 2019 Inactive True Metrix Glucose Test Strip RxNorm: 1 Test Strips Miscellaneous every morning 020 2019 Inactive 100/container True Metrix Glucose Test Strip RxNorm: 1 Test Strips Miscellaneous QAM 020 2019 Inactive 100/container loperamide 2 mg tablet RxNorm: 325457 1 Tablet(s) Oral as needed take one tablet after each loose stool, maximum of 8 tablets in 24 hours 020 2019 Inactive cetirizine 10 mg tablet RxNorm: 1226373 1 Tablet(s) PO daily 2019 Inactive loperamide 2 mg tablet RxNorm: 472390 1 Tablet(s) Oral as needed take one tablet after each loose stool, maximum of 8 tablets in 24 hours 2019 Inactive quetiapine 100 mg tablet RxNorm: 463708 1 Tablet(s) Oral every night at bedtime 2019 Inactive levothyroxine 50 mcg tablet RxNorm: 908546 1 Tablet(s) PO daily 020 2020 Inactive gabapentin 300 mg capsule RxNorm: 882506 1 Capsule(s) PO TID 2019 Inactive levothyroxine 50 mcg tablet RxNorm: 772855 1 Tablet(s) PO daily 020 2019 Inactive lisinopril 2.5 mg tablet RxNorm: 903765 1 Tablet(s) PO daily 2020 Inactive gabapentin 300 mg capsule RxNorm: 339051 1 Capsule(s) PO TID 2019 Inactive cetirizine 10 mg tablet RxNorm: 3980174 1 Tablet(s) PO daily 2019 Inactive Singulair 10 mg tablet RxNorm: 622290 1 Tablet(s) PO daily 020 2020 Inactive gentamicin 0.3 % eye drops RxNorm: 945175 1 Drop(s) ophthalmic (eye) four times a day 2019 Inactive gentamicin 0.3 % eye drops RxNorm: 366254 1 Drop(s) ophthalmic (eye) four times a day 2019 Inactive gentamicin 0.3 % eye drops RxNorm: 996490 1 Drop(s) ophthalmic (eye) four times a day 020 2019 Inactive hydrochlorothiazide 25 mg tablet RxNorm: 847068 1 Tablet(s) Oral every day 2019 Inactive Sudafed 12 Hour 120 mg tablet,extended release RxNorm: 1015000 TAKE (1) TABLET BY MOUTH EVERY 12 HOURS NEEDED 2019 Inactive loperamide 2 mg tablet RxNorm: 214544 1 Tablet(s) Oral as needed take one tablet after each loose stool, maximum of 8 tablets in 24 hours 020 2019 Inactive loperamide 2 mg tablet RxNorm: 236038 1 Tablet(s) Oral as needed take one tablet after each loose stool, maximum of 8 tablets in 24 hours 2019 Inactive atorvastatin 40 mg tablet RxNorm: 632630 1 Tablet(s) Oral every day 2020 Inactive quetiapine 100 mg tablet RxNorm: 706877 1 Tablet(s) Oral every night at bedtime 2019 Inactive sertraline 100 mg tablet RxNorm: 890371 1 Tablet(s) Oral 2019 Inactive omeprazole 20 mg capsule,delayed release RxNorm: 194763 1 Capsule(s) Oral every day 2019 Inactive amoxicillin 250 mg capsule RxNorm: 800386 1 Capsule(s) Oral three times a day 020 2019 Inactive multivitamin with iron-mineral tablet RxNorm: 1 Tablet(s) Oral every day 2021 Inactive cetirizine 10 mg tablet RxNorm: 0919644 1 Tablet(s) PO daily 2019 Inactive This refill negates all other refills of this medication. Please do not auto refill Singulair 10 mg tablet RxNorm: 958896 1 Tablet(s) PO daily 2019 Inactive This refill negates all other refills of this medication gabapentin 300 mg capsule RxNorm: 344690 1 Capsule(s) PO TID 2019 Inactive lisinopril 2.5 mg tablet RxNorm: 101111 1 Tablet(s) PO daily 2019 Inactive levothyroxine 50 mcg tablet RxNorm: 866724 1 Tablet(s) PO daily 2019 Inactive This refill negates all other refills of this medication hydrochlorothiazide 25 mg tablet RxNorm: 246046 1 Tablet(s) Oral every day 2019 Inactive fenugreek seed extract 500 mg capsule RxNorm: 1 Capsule(s) Oral three times a day 2021 Inactive Alcohol Prep Pads RxNorm: 700936 1 Patch TOP QAM 2020 Inactive loperamide 2 mg tablet RxNorm: 487375 1 Tablet(s) Oral as needed take one [...] 2019 Inactive hydrochlorothiazide 25 mg tablet RxNorm: 811786 1 Tablet(s) Oral every day 2019 Inactive Sudafed 12 Hour 120 mg tablet,extended release RxNorm: 3129675 1 Tablet(s) Oral every 12 hours as needed 2018 Inactive omeprazole 20 mg capsule,delayed release RxNorm: 154144 1 Capsule(s) Oral every day 019 2019 Inactive Sudafed 12 Hour 120 mg tablet,extended release RxNorm: 8987773 1 Tablet(s) Oral every 12 hours as needed 019 2018 Inactive pantoprazole 40 mg tablet,delayed release RxNorm: 857770 1 Tablet(s) Oral every day 019 2018 Inactive discontinue any other H2Blkr. and PPI albuterol sulfate 2.5 mg/3 mL (0.083 %) solution for nebulization RxNorm: 811710 1 Vial Inhalation every four hours as needed as needed for dyspnea 019 2019 Inactive 60/box. This refill negates all other refills of this medication. Please do not fill early. Please do not auto refill. Symbicort 160 mcg-4.5 mcg/actuation HFA aerosol inhaler RxNorm: 0274827 2 Puff(s) INH BID 019 No Stop Date Active Alcohol Prep Pads RxNorm: 576099 1 Patch TOP QAM 019 2019 Inactive Ventolin HFA 90 mcg/actuation aerosol inhaler RxNorm: 467803 2 Puff(s) INH QID 019 2019 Inactive Please do not fill early. Please do not auto refill. This refill negates all other refills of this medication True Metrix Glucose Test Strip RxNorm: 1 Test Strips Miscellaneous QAM 019 2019 Inactive 100/container atorvastatin 40 mg tablet RxNorm: 684758 1 Tablet(s) Oral every day 019 2019 Inactive buspirone 7.5 mg tablet RxNorm: 992111 1 Tablet(s) PO BID 019 2020 Inactive This refill negates all other refills of this medication hydrochlorothiazide 12.5 mg tablet RxNorm: 952359 1 Tablet(s) PO QAM 019 2019 Inactive levmetamfetamine 50 mg nasal inhaler RxNorm: 1 Unit(s) NASAL Q3-4H Do not use more than every 3 hours or 8 times/24hours 019 2021 Inactive Please do not auto refill. This refill negates all other refills of this medication Ventolin HFA 90 mcg/actuation aerosol inhaler RxNorm: 894449 2 Puff(s) INH QID 019 2018 Inactive Please do not fill early. Please do not auto refill. This refill negates all other refills of this medication Singulair 10 mg tablet RxNorm: 741462 1 Tablet(s) PO daily 019 2019 Inactive This refill negates all other refills of this medication cetirizine 10 mg tablet RxNorm: 1938842 1 Tablet(s) PO daily 019 2019 Inactive This refill negates all other refills of this medication. Please do not auto refill levothyroxine 50 mcg tablet RxNorm: 166190 1 Tablet(s) PO daily 019 2019 Inactive This refill negates all other refills of this medication diclofenac sodium 75 mg tablet,delayed release RxNorm: 577123 1 Tablet(s) PO BID 019 2019 Inactive This refill negates all other refills of this medication ranitidine 150 mg tablet RxNorm: 841385 1 Tablet(s) PO BID 019 2018 Inactive This refill negates all other refills of this medication Calcium 600-D3 Plus (mag-zinc) 600 mg calcium-800 unit-50 mg tablet RxNorm: 1 Tablet(s) PO daily take an additonal tablet for itching. 019 2018 Inactive This refill negates all other refills of this medication albuterol sulfate 2.5 mg/3 mL (0.083 %) solution for nebulization RxNorm: 000548 1 Vial INH QID 019 2018 Inactive 60/box. This refill negates all other refills of this medication. Please do not fill early. Please do not auto refill. lisinopril 2.5 mg tablet RxNorm: 312681 1 Tablet(s) PO daily 019 2019 Inactive gabapentin 300 mg capsule RxNorm: 160855 1 Capsule(s) PO TID 019 2019 Inactive atorvastatin 20 mg tablet RxNorm: 993102 1 Tablet(s) PO QHS 019 2018 Inactive This refill negates all other refills of this medication TRUEplus Lancets 30 gauge RxNorm: 1 Lancets Miscellaneous QAM 019 2018 Inactive 100/box gabapentin 300 mg capsule RxNorm: 025000 1 Capsule(s) PO TID 019 2018 Inactive Flintstones Complete (iron) 18 mg iron chewable tablet RxNorm: 1 Tablet(s) PO daily 019 2021 Inactive This refill negates all other refills of this medication gabapentin 300 mg capsule RxNorm: 089913 1 Capsule(s) PO TID as needed 2018 Inactive True Metrix Glucose Test Strip RxNorm: 1 Test Strips Miscellaneous QAM 019 2018 Inactive 100/container Alcohol Prep Pads RxNorm: 408285 1 Patch TOP QAM 2018 Inactive TRUEplus Lancets 30 gauge RxNorm: 1 Lancets Miscellaneous QAM 019 2018 Inactive 100/box lisinopril 2.5 mg tablet RxNorm: 346737 1 Tablet(s) PO daily 019 2018 Inactive ranitidine 150 mg tablet RxNorm: 727287 1 Tablet(s) PO BID 019 2018 Inactive This refill negates all other refills of this medication albuterol sulfate 2.5 mg/3 mL (0.083 %) solution for nebulization RxNorm: 386668 1 Vial INH QID 019 2018 Inactive [...] this medication gabapentin 300 mg capsule RxNorm: 349354 1 Capsule(s) PO TID as needed 019 2018 Inactive atorvastatin 20 mg tablet RxNorm: 623733 1 Tablet(s) PO QHS 019 2018 Inactive This refill negates all other refills of this medication trazodone 50 mg tablet RxNorm: 500874 1 Tablet(s) PO QHS 019 2018 Inactive This refill negates all other refills of this medication Ventolin HFA 90 mcg/actuation aerosol inhaler RxNorm: 789450 2 Puff(s) INH QID 019 2018 Inactive Please do not fill early. Please do not auto refill. This refill negates all other refills of this medication Calcium 600-D3 Plus 600 mg calcium-800 unit-50 mg tablet RxNorm: 1 Tablet(s) PO daily take an additonal tablet for itching. 019 2018 Inactive This refill negates all other refills of this medication Singulair 10 mg tablet RxNorm: 928051 1 Tablet(s) PO daily 019 2018 Inactive This refill negates all other refills of this medication buspirone 7.5 mg tablet RxNorm: 641306 1 Tablet(s) PO BID 019 2018 Inactive This refill negates all other refills of this medication diclofenac sodium 75 mg tablet,delayed release RxNorm: 850241 1 Tablet(s) PO BID 019 2018 Inactive This refill negates all other refills of this medication hydrochlorothiazide 12.5 mg tablet RxNorm: 402322 1 Tablet(s) PO QAM 019 2018 Inactive metoprolol succinate ER 50 mg tablet,extended release 24 hr RxNorm: 713479 1 Tablet(s) PO daily 019 2018 Inactive This refill negates all other refills of this medication levothyroxine 50 mcg tablet RxNorm: 412223 1 Tablet(s) PO daily 019 2018 Inactive This refill negates all other refills of this medication cetirizine 10 mg tablet RxNorm: 5975403 1 Tablet(s) PO daily 019 2018 Inactive This refill negates all other refills of this medication. Please do not auto refill Flintstones Complete (iron) 18 mg iron chewable tablet RxNorm: 1 Tablet(s) PO daily 019 2018 Inactive This refill negates all other refills of this medication buspirone 7.5 mg tablet RxNorm: 936049 1 Tablet(s) PO BID 2018 Inactive cetirizine 10 mg tablet RxNorm: 6312357 1 Tablet(s) PO daily 2018 Inactive Guaiasorb DM 10 mg-100 mg/5 mL oral liquid RxNorm: 762833 10 Milliliter(s) PO As needed every 4 hr 2018 Inactive Vicks Vaporub 4.7 %-1.2 %-2.6 % topical ointment RxNorm: 8796675 1 Application TOP TID 2018 Inactive levmetamfetamine 50 mg nasal inhaler RxNorm: 1 Unit(s) NASAL Q3-4H 2017 Inactive sertraline 50 mg tablet RxNorm: 763098 1 Tablet(s) PO daily 018 2018 Inactive Please note dose trazodone 50 mg tablet RxNorm: 506751 1 Tablet(s) PO QHS 018 2018 Inactive sertraline 50 mg tablet RxNorm: 611738 1 Tablet(s) PO daily 018 2017 Inactive amoxicillin 500 mg tablet RxNorm: 932168 1 Tablet(s) PO Q12H 018 2017 Inactive albuterol sulfate 2.5 mg/3 mL (0.083 %) solution for nebulization RxNorm: 465187 1 Vial INH QID 018 2018 Inactive 60/box. Please do not fill early. Please do not auto refill. Prozac 10 mg capsule RxNorm: 936320 1 Capsule(s) PO daily 018 2017 Inactive buspirone 7.5 mg tablet RxNorm: 097547 1 Tablet(s) PO BID 018 2018 Inactive gabapentin 300 mg capsule RxNorm: 352959 1 Capsule(s) PO TID as needed 2018 Inactive hydrochlorothiazide 12.5 mg tablet RxNorm: 757450 1 Tablet(s) PO QAM 018 2018 Inactive ranitidine 150 mg tablet RxNorm: 987073 1 Tablet(s) PO BID 018 2018 Inactive Macrobid 100 mg capsule RxNorm: 413318 1 Capsule(s) PO Q12H 018 2017 Inactive Singulair 10 mg tablet RxNorm: 122558 1 Tablet(s) PO daily 018 2018 Inactive Ventolin HFA 90 mcg/actuation aerosol inhaler RxNorm: 0135632 2 Puff(s) INH QID 018 2018 Inactive Singulair 10 mg tablet RxNorm: 992962 1 Tablet(s) PO daily 018 2017 Inactive buspirone 7.5 mg tablet RxNorm: 123611 1 Tablet(s) PO BID 018 2017 Inactive Prozac 10 mg capsule RxNorm: 598347 1 Capsule(s) PO daily 018 2017 Inactive diclofenac sodium 75 mg tablet,delayed release RxNorm: 141461 1 Tablet(s) PO BID 018 2017 Inactive lisinopril 2.5 mg tablet RxNorm: 043812 1 Tablet(s) PO daily 018 2017 Inactive Neilmed Pediatric Sinus Rinse Refill packet RxNorm: 1 Unit Dose NASAL PRN 018 2021 Inactive metoprolol succinate ER 50 mg tablet,extended release 24 hr RxNorm: 570932 1 Tablet(s) PO daily 018 2017 Inactive levothyroxine 50 mcg tablet RxNorm: 315390 1 Tablet(s) PO daily 018 2017 Inactive TRUEplus Lancets 30 gauge RxNorm: 1 Lancets Miscellaneous QAM 018 2017 Inactive 100/box Ventolin HFA 90 mcg/actuation aerosol inhaler RxNorm: 931280 2 Puff(s) INH QID 018 2017 Inactive Aleve 220 mg capsule RxNorm: 6014463 1 Capsule(s) PO BID 018 2018 Inactive ranitidine 150 mg tablet RxNorm: 881205 1 Tablet(s) PO BID 018 2017 Inactive gabapentin 300 mg capsule RxNorm: 859904 1 Capsule(s) PO TID as needed 018 2017 Inactive atorvastatin 20 mg tablet RxNorm: 817994 1 Tablet(s) PO QHS 018 2017 Inactive True Metrix Glucose Test Strip RxNorm: 1 [facility] Inactive 50/container Calcium 600-D3 Plus 600 mg calcium-800 unit-50 mg tablet RxNorm: 1 Tablet(s) PO daily take an additonal tablet for itching. 018 2017 Inactive hydrochlorothiazide 12.5 mg tablet RxNorm: 072989 1 Tablet(s) PO QAM 018 2017 Inactive Flintstones Complete (iron) 18 mg iron chewable tablet RxNorm: 1 Tablet(s) PO daily 018 2017 Inactive True Metrix Glucose Meter RxNorm: miscellaneous 019 2018 Inactive sertraline 50 mg tablet RxNorm: 938499 1 Tablet(s) PO daily 020 2019 Inactive loperamide 2 mg tablet RxNorm: 147603 oral 019 2018 Inactive d-mannose oral powder RxNorm: PO 018 2021 Inactive Symbicort 160 mcg-4.5 mcg/actuation HFA aerosol inhaler RxNorm: 5586584 2 Puff(s) INH BID 019 2018 Inactive Medication Administered No Medication Administered data Procedures Procedure Codes Date Urinalysis, dip stick CPT-4: 28640 05/04/2023 [place] Fany Assessment CPT-4: DSWA 01/02 Fall Risk Assessment CPT-4: DFRA 01/27/2023 Hypertension CPT-4: HTN 01/27/2023 Patient Health Questionnaire CPT-4: DPHQ Pain Screening CPT-4: PAS 2022 Tobacco Assessment/Screening CPT-4: TCA Hypertension CPT-4: HTN 08/17/2022 [place] Fany Assessment CPT-4: DSWA 04/02 Patient [...] CPT-4: VACP Fall Risk Assessment SNOMED CT: 77415683 4 CPT-4: DFRA 01/13/2021 [place] Fany Assessment CPT-4: DSWA 12/01 Urinalysis, dip stick CPT-4: 74795 09/24/2020 Patient Health Questionnaire CPT-4: DPHQ Electrocardiogram CPT-4: 29134 05/14/2020 Tobacco Assessment/Screening CPT-4: TCA Fall Risk Assessment SNOMED CT: 98036572 4 CPT-4: DFRA 01/01/2020 Functional Assessment CPT-4: DFA 01/01/2020 [place] Fany Assessment CPT-4: DSWA 11/04 Patient Health Questionnaire CPT-4: DPHQ [place] Fany Assessment CPT-4: DSWA 10/03 Hypertension CPT-4: HTN 10/17/2019 Fall Risk Assessment SNOMED CT: 10869022 4 CPT-4: DFRA 09/19/2019 Functional Assessment CPT-4: DFA 09/19/2019 Urinalysis, dip stick CPT-4: 96492 06/21/2019 Tobacco Assessment/Screening CPT-4: TCA Patient Health Questionnaire CPT-4: DPHQ AHA/REBECCA Classification Assessment CPT-4: DAHA 04/25/2019 Controlled Substance Report CPT-4: CTRSU 04/03 Urinalysis, dip stick CPT-4: 43959 03/28/2019 Urinalysis, dip stick CPT-4: 42980 03/28/2019 D3R-Wjmurtgtaeuqrlr CPT-4: 40335 Unknown M7D-Aisbtntsfnjieao CPT-4: 99286 Unknown W6K-Pijwagjtzkprsce CPT-4: 09404 Unknown Q9P-Urxstaxelnxrnhg CPT-4: 52927 Unknown T4D-Luhlgxbruklhuua CPT-4: 97276 Unknown P2R-Qrtbhaorfarzeug CPT-4: 08290 Unknown T0U-Gfkhlygzeuknsfc CPT-4: 24312 Unknown F1I-Gdxstfurzjpjjab CPT-4: 00643 Unknown S5V-Sdxvntvkvkceujy CPT-4: 11622 Unknown O1R-Uskxfpcysevrlby CPT-4: 97694 Unknown E1I-Lfacbxrzzrfnvbe CPT-4: 95651 Unknown F2P-Ywzumjubtveckaj CPT-4: 17648 Unknown Gynecology Referral SNOMED CT: 070824486 CPT-4: R14 Unknown Reason For Visit No Reason For Visit data Plan of Care Planned Activity Notes Codes Status Date Referral: Pending Gynecology Referral Information Referral Processed Referral: Pending Pulmonolog y Referral Information Referral Processed Referral: Pending Psychiatry Referral Information Referral Initiated Referral: Pending Respirator y Services Referral Information Referral Initiated Referral: Pending Ophthalmol ogy Referral Information Referral Initiated Referral: [facility] WPtel: [phone] [facility] [address] Log Washer placed a call out to the patient to notify her that it has been recommended that she be seen by a urologist. Patient agreed to be seen, does not have a provider of choice and no transportation issues. Log Washer faxed referral and clinical notes to [facility] in [place], [place] near the [...] seen and prefers a provider in the [place] or [place] area. Log Washer placed a call out to everyone listed in the area and the only location that was able to accept the patient's insurance was [address] [id number] and spoke with Maylin. Maylin asked that the patient's referral, face sheet and visit notes be faxed to . Log Washer faxed over requested documents. Patient appointment confirmation letter generated and mailed to her home address. Patient to call to schedule an appointment. [facility] [phone] [facility] [address] [place], [place] [id number] Patient notified that it has been advised that she be seen by Neurology. Patient agreed to be seen and prefers to be seen by a provider in the [place], [place] area. Patient denies any concerns with transportation, and prefers to schedule her own appointment. Log Washer placed a call out to [facility] [...]
--- OUTSIDE RECORDS SUMMARY | 2024-01-03 23:27 | XMS_ITS | CCD ---
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 Lotus Notes Developer Name Role Phone Palomo KING, Anna Primary Care Provider Unav ailable Unavailable Chronic Care Management Unavaila ble Summary Purpose DataExchange Insurance Providers Payer name Policy type / Coverage type Covered constitution party ID Effective Begin Date Effective End Date SUKI BUTTS MARIA ESTHER [id number] Unknown Unknown Family history Mother Diagnosis Age [...] Unknown Disability 05/31/[address]: 428259469 Has never s moked or chewed tobacco 05/31/[address]: 276512038 Never drinks alco hol 05/31/2018 Has the patient ever used illegal drugs? Unknown Has never used illegal drugs 05/31/2018 DNR Order/ Advanced Directive Unknown Full Code 05/31/2018 Allergies, Adverse Reactions, Alerts Substance Reaction Codes Entered Date Inactivated Date Status OxyContin itch, RxNorm: 330763 01/13/2021 No Inactive Da te Active *No [...] ICD-10: E78. 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 ICD-10: Z79.899 ICD-9: V58.69 04/25/2019 Inactive Type 2 diabetes mellitus wit hout complications ICD-10: E11.9 ICD-9: 250.00 10/03/2018 Inactive Wheezing ICD-10: R06.2 ICD-9: 786.07 08/08/2018 Inactive Abnormal urine finding ICD-10: R82.90 ICD-9: 791.9 09/24/2020 Resolved Abrasion of toe ICD-10: S90.416A ICD-9: 917.0 02/14/2020 Resolved [place] eye ICD-10: H10.029 ICD-9: 372.03 12/29/2019 Resolved [...] Start Date Stop Date Status Fill Instructions montelukast 10 mg tablet RxNorm: 364050 Take 1 Tablet(s) Oral every day 023 2022 Inactive gabapentin 300 mg capsule RxNorm: 047453 Take 1 Capsule(s) Oral three times a day 023 2022 Inactive metformin ER 500 mg 24 hr tablet,extended release RxNorm: 6226076 Take 1 Tablet(s) Oral every day with the evening meal 023 2022 Inactive famotidine 20 mg tablet RxNorm: 438435 Take 1 Tablet(s) Oral every morning 023 2022 Inactive levothyroxine 50 mcg tablet RxNorm: 340397 Take 1 Tablet(s) Oral every day 023 2023 [facility]val Requested hydrochlorothiazide 25 mg tablet RxNorm: 658898 Take 1 Tablet(s) Oral every day 023 2023 Active Msg From [facility]: Approval Requested atorvastatin 20 mg tablet RxNorm: 389288 Take 1 Tablet(s) Oral every night at bedtime 023 2023 Active Macrobid 100 mg capsule RxNorm: 614235 1 Capsule(s) Oral every 12 hours with food 023 2022 Inactive omeprazole 40 mg capsule,delayed release RxNorm: 783945 Take 1 Capsule(s) Oral every night at bedtime 023 2022 Inactive trazodone 50 mg tablet RxNorm: 663482 Administer 1 Tablet(s) Oral every night at bedtime 023 No Stop Date Active cholecalciferol (vitamin D3) 50 mcg (2,000 unit) tablet RxNorm: 289793 Take 1 Tablet(s) Oral every day 023 2023 Active Ozempic 1 mg/dose (4 mg/3 mL) subcutaneous pen injector RxNorm: 5478844 USE 1 UNIT DOSE SUBCUTANEOUSLY ON TUE OF EACH WEEK 023 2022 Inactive lisinopril 2.5 mg tablet RxNorm: 662482 Take 1 Tablet(s) Oral every day 023 2022 [facility] Requested Ozempic 1 mg/dose (4 mg/3 mL) subcutaneous pen injector RxNorm: 0795963 USE 1 UNIT DOSE SUBCUTANEOUSLY ON TUE OF EACH WEEK 023 2022 Inactive omeprazole 40 mg capsule,delayed release RxNorm: 473301 Take 1 Capsule(s) Oral every night at bedtime 023 2022 Inactive gabapentin 300 mg capsule RxNorm: 820496 Take 1 Capsule(s) Oral three times a day 023 2022 Inactive montelukast 10 mg tablet RxNorm: 569137 Take 1 Tablet(s) Oral every day 023 2022 Inactive omeprazole 20 mg capsule,delayed release RxNorm: 698264 Take 1 Capsule(s) Oral every evening 022 2022 Inactive Alcohol Prep Pads RxNorm: 516944 USE EACH MORNING 022 2021 Inactive E11.42 clotrimazole 1 % topical cream RxNorm: 002033 Apply 1 Application Topical two times a day as needed apply to affected area(s) twice daily until healed 2021 Inactive Victoza 2-Sebastián 0.6 mg/0.1 mL (18 mg/3 mL) subcutaneous pen injector RxNorm: 780509 Inject 0.6-1.8 Milligram(s) Subcutaneous once a week Inject 0.6mg/0.1ml week one, 1.2mg/0.2ml week two, 1.8/0.3ml weekly thereafter 022 2021 Inactive ibuprofen 800 mg tablet RxNorm: 576356 Take 1 Tablet(s) Oral Q8H as needed for pain take with food No Stop Date Active Ozempic 1 mg/dose (4 mg/3 mL) subcutaneous pen injector RxNorm: 2364730 Take 1 Unit Dose Subcutaneous QWeek Tuesday 022 2021 Inactive lisinopril 2.5 mg tablet RxNorm: 471541 Take 1 Tablet(s) Oral every day 022 2021 Inactive lisinopril 2.5 mg tablet RxNorm: 099207 Take 1 Tablet(s) Oral every day 022 2022 Inactive hydrochlorothiazide 25 mg tablet RxNorm: 800662 Take 1 Tablet(s) Oral every day 022 2021 Inactive Ozempic 1 mg/dose (4 mg/3 mL) subcutaneous pen injector RxNorm: 0116270 Take 1 Unit Dose Subcutaneous QWeek 022 2021 Inactive famotidine 20 mg tablet RxNorm: 201916 Take 1 Tablet(s) Oral every morning 2021 Inactive levothyroxine 50 mcg tablet RxNorm: 799222 Take 1 Tablet(s) Oral every day 2021 Inactive atorvastatin 20 mg tablet RxNorm: 029143 Take 1 Tablet(s) Oral every night at bedtime 2021 Inactive Cleocin T 1 % lotion RxNorm: 539470 Take 2 Gram(s) Topical every day 2021 Inactive Cleocin T 1 % lotion RxNorm: 286295 Take 2 Gram(s) Topical every day 2021 Inactive Ozempic 1 mg/dose (4 mg/3 mL) subcutaneous pen injector RxNorm: 7826970 Take 1 Unit Dose Subcutaneous QWeek 022 2021 Inactive Ozempic 0.25 mg or 0.5 mg (2 mg/1.5 mL) subcutaneous pen injector RxNorm: 2535435 INJECT 0.5 MGS SUBCUTANEOUSLY EVERY WEEK 2021 Inactive omeprazole 20 mg capsule,delayed release RxNorm: 673255 Take 1 Capsule(s) Oral every evening 2021 Inactive levothyroxine 50 mcg tablet RxNorm: 468231 Take 1 Tablet(s) Oral every day 2021 Inactive atorvastatin 20 mg tablet RxNorm: 066633 Take 1 Tablet(s) Oral every night at bedtime 2021 Inactive This refill negates all other refills of this medication lisinopril 2.5 mg tablet RxNorm: 812383 Take 1 Tablet(s) Oral every day 2021 Inactive gabapentin 300 mg capsule RxNorm: 115536 Take 1 Capsule(s) Oral three times a day 2021 Inactive montelukast 10 mg tablet RxNorm: 070939 Take 1 Tablet(s) Oral every day 2021 Inactive Myrbetriq 50 mg tablet,extended release RxNorm: 8008081 1 Tablet(s) Oral every day No Stop Date Active cholecalciferol (vitamin D3) 50 mcg (2,000 unit) tablet RxNorm: 779506 Take 1 Tablet(s) Oral every day 2022 Inactive Ozempic 0.25 mg or 0.5 mg (2 mg/1.5 mL) subcutaneous pen injector RxNorm: 8801266 inject 0.5 milligrams subcutaneously every week 2021 Inactive Ozempic 0.25 mg or 0.5 mg (2 mg/1.5 mL) subcutaneous pen injector RxNorm: 4174960 Take 0.5 Capsule(s) Injection once a week 2021 Inactive omeprazole 20 mg capsule,delayed release RxNorm: 267587 Take 1 Capsule(s) Oral every evening 2020 Inactive Ozempic 0.25 mg or 0.5 mg (2 mg/1.5 mL) subcutaneous pen injector RxNorm: 2427437 Take 0.25 Milligram(s) Subcutaneous once a week 2021 Inactive Easy Touch Alcohol Prep Pads RxNorm: 681289 USE DIRECTED EACH MORNING 2021 Inactive Probiotic 10 billion cell capsule RxNorm: 8057542 Take 1 Capsule(s) Oral every day 2021 Inactive levothyroxine 50 mcg tablet RxNorm: 775834 Take 1 Tablet(s) Oral every day 2020 Inactive Acid Bottle Blower (famotidine) 20 mg tablet RxNorm: 299768 Take 1 Tablet(s) Oral every morning 2020 Inactive Heartburn Relief (famotidine) 10 mg tablet RxNorm: 436340 Take 1 Tablet(s) Oral QAM 2020 Inactive levothyroxine 50 mcg tablet RxNorm: 414610 Take 1 Tablet(s) Oral QD 021 2020 Inactive Singulair 10 mg tablet RxNorm: 998709 TAKE (1) TABLET BY MOUTH DAILY 021 2020 Inactive metformin 1,000 mg tablet RxNorm: 282560 1 Tablet(s) Oral two times a day 021 2021 Inactive lisinopril 2.5 mg tablet RxNorm: 506398 Take 1 Tablet(s) Oral every day 021 2020 Inactive hydrochlorothiazide 25 mg tablet RxNorm: 855620 Take 1 Tablet(s) Oral every day 021 2020 Inactive ondansetron 4 mg disintegrating tablet RxNorm: 451696 1 Tablet(s) Oral two times a day 2020 Inactive Sudafed 12 Hour 120 mg tablet,extended release RxNorm: 6388992 TAKE 1 TABLET BY MOUTH EVERY 12 HOURS NEEDED 021 2021 Inactive Heartburn Relief (famotidine) 10 mg tablet RxNorm: 053424 Take 1 Tablet(s) Oral every morning 021 2020 Inactive omeprazole 20 mg capsule,delayed release RxNorm: 303810 1 Capsule(s) Oral every evening 021 2020 Inactive sertraline 100 mg tablet RxNorm: 284615 2 Tablet(s) Oral every day 021 2020 Inactive levothyroxine 50 mcg tablet RxNorm: 999912 TAKE (1) TABLET BY MOUTH DAILY 021 2020 Inactive metformin 500 mg tablet RxNorm: 502594 1 Tablet(s) Oral two times a day take with 500mg to equal 1000mg 021 2020 Inactive gabapentin 300 mg capsule RxNorm: 047527 TAKE 1 CAPSULE BY MOUTH THREE TIMES A DAY 021 2020 Inactive lisinopril 2.5 mg tablet RxNorm: 423805 TAKE 1 TABLET BY MOUTH DAILY 021 2020 Inactive gabapentin 300 mg capsule RxNorm: 456809 TAKE 1 CAPSULE BY MOUTH THREE TIMES A DAY 2020 Inactive Singulair 10 mg tablet RxNorm: 039159 TAKE (1) TABLET BY MOUTH DAILY 2020 Inactive metformin 1,000 mg tablet RxNorm: 138242 1 Tablet(s) Oral two times a day 2020 Inactive atorvastatin 40 mg tablet RxNorm: 114286 1 Tablet(s) Oral every day 021 2020 Inactive omeprazole 20 mg capsule,delayed release RxNorm: 287134 1 Capsule(s) Oral every evening 2020 Inactive famotidine 10 mg tablet RxNorm: 219662 1 Tablet(s) Oral every morning 2020 Inactive Alcohol Prep Pads RxNorm: 990535 USE EACH MORNING 021 2020 Inactive omeprazole 20 mg capsule,delayed release RxNorm: 409038 1 Capsule(s) Oral two times a day 2021 Inactive omeprazole 20 mg capsule,delayed release RxNorm: 288473 TAKE 1 CAPSULE BY MOUTH EVERY DAY 2021 Inactive Macrobid 100 mg capsule RxNorm: 413253 1 Capsule(s) Oral every 12 hours with food 2020 Inactive omeprazole 20 mg capsule,delayed release RxNorm: 763731 1 Capsule(s) Oral two times a day 2021 Inactive metformin 1,000 mg tablet RxNorm: 231135 1 Tablet(s) Oral two times a day 2020 Inactive start on September 11, 2020 metformin 500 mg tablet RxNorm: 620394 1 Tablet(s) Oral two times a day take with 500mg to equal 1000mg 2019 Inactive gabapentin 300 mg capsule RxNorm: 088130 TAKE 1 CAPSULE BY MOUTH THREE TIMES DAILY 2020 Inactive cetirizine 10 mg tablet RxNorm: 6045206 TAKE (1) TABLET BY MOUTH DAILY 020 2020 Inactive metformin 500 mg tablet RxNorm: 728348 1 Tablet(s) Oral two times a day 2019 Inactive loperamide 2 mg tablet RxNorm: 088312 1 Tablet(s) Oral as needed take one tablet after each loose stool, maximum of 8 tablets in 24 hours 2021 Inactive Sudafed 12 Hour 120 mg tablet,extended release RxNorm: 4848213 TAKE 1 TABLET BY MOUTH EVERY 12 HOURS NEEDED 2019 Inactive hydrochlorothiazide 25 mg tablet RxNorm: 171008 TAKE (1) TABLET BY MOUTH EVERY DAY 020 2019 Inactive omeprazole 20 mg capsule,delayed release RxNorm: 010478 TAKE 1 CAPSULE BY MOUTH EVERY DAY 2020 Inactive metformin 500 mg tablet RxNorm: 416665 1 Tablet(s) Oral every day 2019 Inactive True Metrix Glucose Test Strip RxNorm: 1 Test Strips Miscellaneous two times a day as needed No Stop Date Active metformin 500 mg tablet RxNorm: 366775 1 Tablet(s) Oral every day 020 2019 Inactive diclofenac sodium 75 mg tablet,delayed release RxNorm: 738232 1 Tablet(s) PO BID 2021 Inactive This refill negates all other refills of this medication Sudafed 12 Hour 120 mg tablet,extended release RxNorm: 6629272 TAKE 1 TABLET BY MOUTH EVERY 12 HOURS NEEDED 020 2019 Inactive True Metrix Glucose Test Strip RxNorm: 1 Test Strips Miscellaneous every morning 020 2019 Inactive 100/container True Metrix Glucose Test Strip RxNorm: 1 Test Strips Miscellaneous QA 020 2019 Inactive 100/container loperamide 2 mg tablet RxNorm: 489420 1 Tablet(s) Oral as needed take one tablet after each loose stool, maximum of 8 tablets in 24 hours 2019 Inactive cetirizine 10 mg tablet RxNorm: 5902354 1 Tablet(s) PO daily 2019 Inactive loperamide 2 mg tablet RxNorm: 477281 1 Tablet(s) Oral as needed take one tablet after each loose stool, maximum of 8 tablets in 24 hours 2019 Inactive quetiapine 100 mg tablet RxNorm: 200685 1 Tablet(s) Oral every night at bedtime 2019 Inactive levothyroxine 50 mcg tablet RxNorm: 616251 1 Tablet(s) PO daily 2020 Inactive gabapentin 300 mg capsule RxNorm: 053609 1 Capsule(s) PO TID 2019 Inactive levothyroxine 50 mcg tablet RxNorm: 021980 1 Tablet(s) PO daily 2019 Inactive lisinopril 2.5 mg tablet RxNorm: 571100 1 Tablet(s) PO daily 2020 Inactive gabapentin 300 mg capsule RxNorm: 041870 1 Capsule(s) PO TID 2019 Inactive cetirizine 10 mg tablet RxNorm: 0711070 1 Tablet(s) PO daily 2019 Inactive Singulair 10 mg tablet RxNorm: 900605 1 Tablet(s) PO daily 2020 Inactive gentamicin 0.3 % eye drops RxNorm: 649638 1 Drop(s) ophthalmic (eye) four times a day 2019 Inactive gentamicin 0.3 % eye drops RxNorm: 959737 1 Drop(s) ophthalmic (eye) four times a day 2019 Inactive gentamicin 0.3 % eye drops RxNorm: 099596 1 Drop(s) ophthalmic (eye) four times a day 2019 Inactive hydrochlorothiazide 25 mg tablet RxNorm: 921863 1 Tablet(s) Oral every day 2019 Inactive Sudafed 12 Hour 120 mg tablet,extended release RxNorm: 8888895 TAKE (1) TABLET BY MOUTH EVERY 12 HOURS NEEDED 2019 Inactive loperamide 2 mg tablet RxNorm: 879642 1 Tablet(s) Oral as needed take one tablet after each loose stool, maximum of 8 tablets in 24 hours 020 2019 Inactive loperamide 2 mg tablet RxNorm: 559174 1 Tablet(s) Oral as needed take one tablet after each loose stool, maximum of 8 tablets in 24 hours 020 2019 Inactive atorvastatin 40 mg tablet RxNorm: 692724 1 Tablet(s) Oral every day 2020 Inactive quetiapine 100 mg tablet RxNorm: 387943 1 Tablet(s) Oral every night at bedtime 2019 Inactive sertraline 100 mg tablet RxNorm: 310637 1 Tablet(s) Oral 2019 Inactive omeprazole 20 mg capsule,delayed release RxNorm: 113643 1 Capsule(s) Oral every day 2019 Inactive amoxicillin 250 mg capsule RxNorm: 738621 1 Capsule(s) Oral three times a day 2019 Inactive multivitamin with iron-mineral tablet RxNorm: 1 Tablet(s) Oral every day 2021 Inactive cetirizine 10 mg tablet RxNorm: 6842359 1 Tablet(s) PO daily 2019 Inactive This refill negates all other refills of this medication. Please do not auto refill Singulair 10 mg tablet RxNorm: 451062 1 Tablet(s) PO daily 020 2019 Inactive This refill negates all other refills of this medication gabapentin 300 mg capsule RxNorm: 015691 1 Capsule(s) PO TID 2019 Inactive lisinopril 2.5 mg tablet RxNorm: 259756 1 Tablet(s) PO daily 020 2019 Inactive levothyroxine 50 mcg tablet RxNorm: 885133 1 Tablet(s) PO daily 2019 Inactive This refill negates all other refills of this medication hydrochlorothiazide 25 mg tablet RxNorm: 856298 1 Tablet(s) Oral every day 2019 Inactive fenugreek seed extract 500 mg capsule RxNorm: 1 Capsule(s) Oral three times a day 2021 Inactive Alcohol Prep Pads RxNorm: 734137 1 Patch TOP QAM 2020 Inactive loperamide 2 mg tablet RxNorm: 417230 1 Tablet(s) Oral as needed take one [...] 2019 Inactive hydrochlorothiazide 25 mg tablet RxNorm: 954155 1 Tablet(s) Oral every day 2019 Inactive Sudafed 12 Hour 120 mg tablet,extended release RxNorm: 2803996 1 Tablet(s) Oral every 12 hours as needed 2018 Inactive omeprazole 20 mg capsule,delayed release RxNorm: 412277 1 Capsule(s) Oral every day 019 2019 Inactive Sudafed 12 Hour 120 mg tablet,extended release RxNorm: 4407469 1 Tablet(s) Oral every 12 hours as needed 019 2018 Inactive pantoprazole 40 mg tablet,delayed release RxNorm: 107417 1 Tablet(s) Oral every day 019 2018 Inactive discontinue any other H2Blkr. and PPI albuterol sulfate 2.5 mg/3 mL (0.083 %) solution for nebulization RxNorm: 122213 1 Vial Inhalation every four hours as needed as needed for dyspnea 2019 Inactive 60/box. This refill negates all other refills of this medication. Please do not fill early. Please do not auto refill. Symbicort 160 mcg-4.5 mcg/actuation HFA aerosol inhaler RxNorm: 3503685 2 Puff(s) INH BID 019 No Stop Date Active Alcohol Prep Pads RxNorm: 323338 1 Patch TOP QAM 019 2019 Inactive Ventolin HFA 90 mcg/actuation aerosol inhaler RxNorm: 698728 2 Puff(s) INH QID 019 2019 Inactive Please do not fill early. Please do not auto refill. This refill negates all other refills of this medication True Metrix Glucose Test Strip RxNorm: 1 Test Strips Miscellaneous QAM 019 2019 Inactive 100/container atorvastatin 40 mg tablet RxNorm: 362056 1 Tablet(s) Oral every day 019 2019 Inactive buspirone 7.5 mg tablet RxNorm: 278522 1 Tablet(s) PO BID 019 2020 Inactive This refill negates all other refills of this medication hydrochlorothiazide 12.5 mg tablet RxNorm: 640346 1 Tablet(s) PO QAM 019 2019 Inactive levmetamfetamine 50 mg nasal inhaler RxNorm: 1 Unit(s) NASAL Q3-4H Do not use more than every 3 hours or 8 times/24hours 019 2021 Inactive Please do not auto refill. This refill negates all other refills of this medication Ventolin HFA 90 mcg/actuation aerosol inhaler RxNorm: 528222 2 Puff(s) INH QID 019 2018 Inactive Please do not fill early. Please do not auto refill. This refill negates all other refills of this medication Singulair 10 mg tablet RxNorm: 138001 1 Tablet(s) PO daily 019 2019 Inactive This refill negates all other refills of this medication cetirizine 10 mg tablet RxNorm: 1051465 1 Tablet(s) PO daily 019 2019 Inactive This refill negates all other refills of this medication. Please do not auto refill levothyroxine 50 mcg tablet RxNorm: 295190 1 Tablet(s) PO daily 019 2019 Inactive This refill negates all other refills of this medication diclofenac sodium 75 mg tablet,delayed release RxNorm: 688251 1 Tablet(s) PO BID 019 2019 Inactive This refill negates all other refills of this medication ranitidine 150 mg tablet RxNorm: 084652 1 Tablet(s) PO BID 019 2018 Inactive This refill negates all other refills of this medication Calcium 600-D3 Plus (mag-zinc) 600 mg calcium-800 unit-50 mg tablet RxNorm: 1 Tablet(s) PO daily take an additonal tablet for itching. 019 2018 Inactive This refill negates all other refills of this medication albuterol sulfate 2.5 mg/3 mL (0.083 %) solution for nebulization RxNorm: 913528 1 Vial INH QID 019 2018 Inactive 60/box. This refill negates all other refills of this medication. Please do not fill early. Please do not auto refill. lisinopril 2.5 mg tablet RxNorm: 485600 1 Tablet(s) PO daily 019 2019 Inactive gabapentin 300 mg capsule RxNorm: 168004 1 Capsule(s) PO TID 019 2019 Inactive atorvastatin 20 mg tablet RxNorm: 625332 1 Tablet(s) PO QHS 019 2018 Inactive This refill negates all other refills of this medication TRUEplus Lancets 30 gauge RxNorm: 1 Lancets Miscellaneous QAM 019 2018 Inactive 100/box gabapentin 300 mg capsule RxNorm: 625549 1 Capsule(s) PO TID 019 2018 Inactive Flintstones Complete (iron) 18 mg iron chewable tablet RxNorm: 1 Tablet(s) PO daily 019 2021 Inactive This refill negates all other refills of this medication gabapentin 300 mg capsule RxNorm: 952278 1 Capsule(s) PO TID as needed 2018 Inactive True Metrix Glucose Test Strip RxNorm: 1 Test Strips Miscellaneous QAM 019 2018 Inactive 100/container Alcohol Prep Pads RxNorm: 592201 1 Patch TOP QAM 2018 Inactive TRUEplus Lancets 30 gauge RxNorm: 1 Lancets Miscellaneous QAM 019 2018 Inactive 100/box lisinopril 2.5 mg tablet RxNorm: 561650 1 Tablet(s) PO daily 2018 Inactive ranitidine 150 mg tablet RxNorm: 780619 1 Tablet(s) PO BID 019 2018 Inactive This refill negates all other refills of this medication albuterol sulfate 2.5 mg/3 mL (0.083 %) solution for nebulization RxNorm: 172350 1 Vial INH QID 019 2018 Inactive [...] this medication gabapentin 300 mg capsule RxNorm: 018294 1 Capsule(s) PO TID as needed 019 2018 Inactive atorvastatin 20 mg tablet RxNorm: 350823 1 Tablet(s) PO QHS 019 2018 Inactive This refill negates all other refills of this medication trazodone 50 mg tablet RxNorm: 469699 1 Tablet(s) PO QHS 019 2018 Inactive This refill negates all other refills of this medication Ventolin HFA 90 mcg/actuation aerosol inhaler RxNorm: 221275 2 Puff(s) INH QID 019 2018 Inactive Please do not fill early. Please do not auto refill. This refill negates all other refills of this medication Calcium 600-D3 Plus 600 mg calcium-800 unit-50 mg tablet RxNorm: 1 Tablet(s) PO daily take an additonal tablet for itching. 019 2018 Inactive This refill negates all other refills of this medication Singulair 10 mg tablet RxNorm: 868186 1 Tablet(s) PO daily 019 2018 Inactive This refill negates all other refills of this medication buspirone 7.5 mg tablet RxNorm: 514150 1 Tablet(s) PO BID 019 2018 Inactive This refill negates all other refills of this medication diclofenac sodium 75 mg tablet,delayed release RxNorm: 809756 1 Tablet(s) PO BID 019 2018 Inactive This refill negates all other refills of this medication hydrochlorothiazide 12.5 mg tablet RxNorm: 534970 1 Tablet(s) PO QAM 019 2018 Inactive metoprolol succinate ER 50 mg tablet,extended release 24 hr RxNorm: 562647 1 Tablet(s) PO daily 019 2018 Inactive This refill negates all other refills of this medication levothyroxine 50 mcg tablet RxNorm: 727336 1 Tablet(s) PO daily 019 2018 Inactive This refill negates all other refills of this medication cetirizine 10 mg tablet RxNorm: 2906124 1 Tablet(s) PO daily 019 2018 Inactive This refill negates all other refills of this medication. Please do not auto refill Flintstones Complete (iron) 18 mg iron chewable tablet RxNorm: 1 Tablet(s) PO daily 019 2018 Inactive This refill negates all other refills of this medication buspirone 7.5 mg tablet RxNorm: 316036 1 Tablet(s) PO BID 019 2018 Inactive cetirizine 10 mg tablet RxNorm: 1007404 1 Tablet(s) PO daily 2018 Inactive Guaiasorb DM 10 mg-100 mg/5 mL oral liquid RxNorm: 432792 10 Milliliter(s) PO As needed every 4 hr 2018 Inactive Vicks Vaporub 4.7 %-1.2 %-2.6 % topical ointment RxNorm: 4437236 1 Application TOP TID 2018 Inactive levmetamfetamine 50 mg nasal inhaler RxNorm: 1 Unit(s) NASAL Q3-4H 2017 Inactive sertraline 50 mg tablet RxNorm: 013833 1 Tablet(s) PO daily 018 2018 Inactive Please note dose trazodone 50 mg tablet RxNorm: 654581 1 Tablet(s) PO QHS 018 2018 Inactive sertraline 50 mg tablet RxNorm: 289660 1 Tablet(s) PO daily 018 2017 Inactive amoxicillin 500 mg tablet RxNorm: 961628 1 Tablet(s) PO Q12H 2017 Inactive albuterol sulfate 2.5 mg/3 mL (0.083 %) solution for nebulization RxNorm: 545951 1 Vial INH QID 018 2018 Inactive 60/box. Please do not fill early. Please do not auto refill. Prozac 10 mg capsule RxNorm: 461006 1 Capsule(s) PO daily 018 2017 Inactive buspirone 7.5 mg tablet RxNorm: 278418 1 Tablet(s) PO BID 018 2018 Inactive gabapentin 300 mg capsule RxNorm: 158619 1 Capsule(s) PO TID as needed 2018 Inactive hydrochlorothiazide 12.5 mg tablet RxNorm: 020979 1 Tablet(s) PO QAM 018 2018 Inactive ranitidine 150 mg tablet RxNorm: 557411 1 Tablet(s) PO BID 018 2018 Inactive Macrobid 100 mg capsule RxNorm: 334292 1 Capsule(s) PO Q12H 018 2017 Inactive Singulair 10 mg tablet RxNorm: 282024 1 Tablet(s) PO daily 018 2018 Inactive Ventolin HFA 90 mcg/actuation aerosol inhaler RxNorm: 8991439 2 Puff(s) INH QID 018 2018 Inactive Singulair 10 mg tablet RxNorm: 823067 1 Tablet(s) PO daily 018 2017 Inactive buspirone 7.5 mg tablet RxNorm: 919417 1 Tablet(s) PO BID 018 2017 Inactive Prozac 10 mg capsule RxNorm: 879535 1 Capsule(s) PO daily 018 2017 Inactive diclofenac sodium 75 mg tablet,delayed release RxNorm: 914999 1 Tablet(s) PO BID 018 2017 Inactive lisinopril 2.5 mg tablet RxNorm: 256536 1 Tablet(s) PO daily 018 2017 Inactive Neilmed Pediatric Sinus Rinse Refill packet RxNorm: 1 Unit Dose NASAL PRN 018 2021 Inactive metoprolol succinate ER 50 mg tablet,extended release 24 hr RxNorm: 053459 1 Tablet(s) PO daily 018 2017 Inactive levothyroxine 50 mcg tablet RxNorm: 900363 1 Tablet(s) PO daily 018 2017 Inactive TRUEplus Lancets 30 gauge RxNorm: 1 Lancets Miscellaneous QAM 018 2017 Inactive 100/box Ventolin HFA 90 mcg/actuation aerosol inhaler RxNorm: 741249 2 Puff(s) INH QID 018 2017 Inactive Aleve 220 mg capsule RxNorm: 9116004 1 Capsule(s) PO BID 018 2018 Inactive ranitidine 150 mg tablet RxNorm: 092573 1 Tablet(s) PO BID 2017 Inactive gabapentin 300 mg capsule RxNorm: 593992 1 Capsule(s) PO TID as needed 2017 Inactive atorvastatin 20 mg tablet RxNorm: 380732 1 Tablet(s) PO QHS 2017 Inactive True Metrix Glucose Test Strip RxNorm: 1 Test Strips Miscellaneous QAM 2017 Inactive 50/container Calcium 600-D3 Plus 600 mg calcium-800 unit-50 mg tablet RxNorm: 1 Tablet(s) PO daily take an additonal tablet for itching. 018 2017 Inactive hydrochlorothiazide 12.5 mg tablet RxNorm: 101532 1 Tablet(s) PO QAM 018 2017 Inactive Flintstones Complete (iron) 18 mg iron chewable tablet RxNorm: 1 Tablet(s) PO daily 018 2017 Inactive True Metrix Glucose Meter RxNorm: miscellaneous 019 2018 Inactive sertraline 50 mg tablet RxNorm: 062723 1 Tablet(s) PO daily 020 2019 Inactive loperamide 2 mg tablet RxNorm: 828808 oral 019 2018 Inactive d-mannose oral powder RxNorm: PO 018 2021 Inactive Symbicort 160 mcg-4.5 mcg/actuation HFA aerosol inhaler RxNorm: 6323837 2 Puff(s) INH BID 019 2018 Inactive Medication Administered No Medication Administered data Procedures Procedure Codes Date Urinalysis, dip stick CPT-4: 83966 05/04/2023 [place] Assessment CPT-4: DSWA 01/02 Fall Risk Assessment CPT-4: DFRA 01/27/2023 Hypertension CPT-4: HTN 01/27/2023 Patient Health Questionnaire CPT-4: DPHQ Pain Screening CPT-4: PAS 2022 Tobacco Assessment/Screening CPT-4: TCA Hypertension CPT-4: HTN 08/17/2022 [place] Assessment CPT-4: DSWA 04/02 Patient Health [...] CPT-4: VACP Fall Risk Assessment SNOMED CT: 91029173 4 CPT-4: DFRA 01/13/2021 [place] Assessment CPT-4: DSWA 12/01 Urinalysis, dip stick CPT-4: 39518 09/24/2020 Patient Health Questionnaire CPT-4: DPHQ Electrocardiogram CPT-4: 79665 05/14/2020 Tobacco Assessment/Screening CPT-4: TCA Fall Risk Assessment SNOMED CT: 30024377 4 CPT-4: DFRA 01/01/2020 Functional Assessment CPT-4: DFA 01/01/2020 [place] Assessment CPT-4: DSWA 11/04 Patient Health Questionnaire CPT-4: DPHQ [place] Assessment CPT-4: DSWA 10/03 Hypertension CPT-4: HTN 10/17/2019 Fall Risk Assessment SNOMED CT: 74353712 4 CPT-4: DFRA 09/19/2019 Functional Assessment CPT-4: DFA 09/19/2019 Urinalysis, dip stick CPT-4: 69850 06/21/2019 Tobacco Assessment/Screening CPT-4: TCA Patient Health Questionnaire CPT-4: DPHQ AHA/REBECCA Classification Assessment CPT-4: DAHA 04/25/2019 Controlled Substance Report CPT-4: CTRSU 04/03 Urinalysis, dip stick CPT-4: 86231 03/28/2019 Urinalysis, dip stick CPT-4: 62429 03/28/2019 M5L-Xpsvnegtdkgkpym CPT-4: 02940 Unknown W2P-Krvmrflbqtwsgkz CPT-4: 96559 Unknown S4N-Ugeygluhubnxgsc CPT-4: 32205 Unknown C1D-Yvhtiupqdwjxpbf CPT-4: 92214 Unknown V2M-Lbquvviczgdagkz CPT-4: 05852 Unknown D8C-Uhjnzhiscbagaun CPT-4: 13912 Unknown K9X-Nziknxseuxbawmo CPT-4: 85467 Unknown S6Q-Npddgslvvoszkxs CPT-4: 95788 Unknown P2J-Hxlvmyhwqlsojge CPT-4: 69279 Unknown X8S-Eqgwkgfcfwxshpa CPT-4: 80933 Unknown D8M-Dgeaiiebmhirfli CPT-4: 60938 Unknown D0W-Rompwmzbtdxialw CPT-4: 66670 Unknown Gynecology Referral SNOMED CT: 756657602 CPT-4: R14 Unknown Reason For Visit No Reason For Visit data Plan of Care Planned Activity Notes Codes Status Date Referral: Pending Gynecology Referral Information Referral Processed Referral: Pending Pulmonolog y Referral Information Referral Processed Referral: Pending Psychiatry Referral Information Referral Initiated Referral: Pending Respirator y Services Referral Information Referral Initiated Referral: Pending Ophthalmol ogy Referral Information Referral Initiated Referral: [facility] WPtel: [address] [place] [address] [place] [address] [place] [employer] [facility] [employer] placed a call out to the patient to notify her that it has been recommended that she be seen by a urologist. Patient agreed to be seen, does not have a provider of choice and no transportation issues. Mini Lab Operator faxed referral and clinical notes to [facility] in [place], [place] near the patient's home. Patient to [...] seen and prefers a provider in the [place] or [place] area. Mini Lab Operator placed a call out to everyone listed in the area and the only location that was able to accept the patient's insurance was [address] [id number] and spoke with Maylin. Maylin asked that the patient's referral, face sheet and visit notes be faxed to . Mini Lab Operator faxed over requested documents. Patient appointment confirmation letter generated and mailed to her home address. Patient to call to schedule an appointment. Processed Referral: [facility] WPtel: [address] [place] [address] Patient notified that it has been advised that she be seen by Neurology. Patient agreed to be seen and prefers to be seen by a provider in the [place], [place] area. Patient denies any concerns with transportation, and prefers to schedule her own appointment. Mini Lab Operator placed a call out to [facility] and spoke with Neeraj [...]
--- OUTSIDE RECORDS SUMMARY | 2024-01-03 23:27 | XMS_ITS | CCD ---
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 Director Financial Services Name Role Phone Palomo KING, Anna Primary Care Provider Unav ailable Unavailable Chronic Care Management Unavaila ble Summary Purpose DataExchange Insurance Providers Payer name Policy type / Coverage type Covered constitution party ID Effective Begin Date Effective End Date [facility] [employer] [facility] [id number] Unknown Unknown Family history Mother Diagnosis Age [...] Unknown Disability 05/31/[address]: 804695699 Has never s moked or chewed tobacco 05/31/[address]: 732637430 Never drinks alco hol 05/31/2018 Has the patient ever used illegal drugs? Unknown Has never used illegal drugs 05/31/2018 DNR Order/ Advanced Directive Unknown Full Code 05/31/2018 Allergies, Adverse Reactions, Alerts Substance Reaction Codes Entered Date Inactivated Date Status OxyContin itch, RxNorm: 839995 01/13/2021 No Inactive Da te Active *No known food allergies Unknown 09/06/2018 No I nactive Date Active Methylprednisolone hives RxNorm: 6902 09/06/2018 No Inac tive Date Active Problems Condition Codes Effective Dates Condition St atus Adult BMI 50.0-59.9 kg/sq m ICD-10: Z68. 43 ICD-9: V85.43 05/30/2018 Active Hypertensive heart disease w ithout heart failure ICD-10: I11.9 ICD-9: 402.90 12/03/2021 Active Major depression, recurrent ICD-10: F33. 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, without status epilepticus ICD-10: G40.509 ICD-9: 345.90 05/04/2023 Active Vitamin D deficiency ICD-10: E55.9 ICD-9: 268.9 12/03/2021 Active UTI (urinary tract infection) ICD-10: N3 9.0 ICD-9: 599.0 03/31/2023 Active Insomnia ICD-10: G47.00 ICD-9: 780.52 01/27/2023 [...] 10/03/2018 Inactive 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 ICD-10: Z79.899 ICD-9: V58.69 04/25/2019 Inactive Type 2 diabetes mellitus wit hout complications ICD-10: E11.9 ICD-9: 250.00 10/03/2018 Inactive Wheezing ICD-10: R06.2 ICD-9: 786.07 08/08/2018 Inactive Abnormal urine finding ICD-10: R82.90 ICD-9: 791.9 09/24/2020 Resolved Abrasion of toe ICD-10: S90.416A ICD-9: 917.0 02/14/2020 Resolved [place] eye ICD-10: H10.029 ICD-9: 372.03 12/29/2019 Resolved [...] Fill Instructions famotidine 20 mg tablet RxNorm: 277902 TAKE 1 TABLET BY MOUTH EACH MORNING 023 2023 Active Januvia 25 mg tablet RxNorm: 572023 Take 1 Tablet(s) Oral every day 023 2022 Inactive Ozempic 1 mg/dose (4 mg/3 mL) subcutaneous pen injector RxNorm: 8233113 INJECT 1 UNITS DOSE SUBCUTANEOUSLY ON TUESDAY OF EACH WEEK 023 2022 Inactive cetirizine 10 mg tablet RxNorm: 6745464 TAKE (1) TABLET BY MOUTH DAILY 023 2023 Inactive amoxicillin 500 mg tablet RxNorm: 002732 Take 1 Tablet(s) Oral two times a day 023 2022 Inactive omeprazole 40 mg capsule,delayed release RxNorm: 893994 Take 1 Capsule(s) Oral at bed time 023 2022 Inactive Easy Touch Alcohol Prep Pads RxNorm: 411955 USE EACH MORNING 023 2024 Active montelukast 10 mg tablet RxNorm: 156349 Take 1 Tablet(s) Oral every day 023 2022 Inactive gabapentin 300 mg capsule RxNorm: 799209 Take 1 Capsule(s) Oral three times a day 023 2022 Inactive metformin ER 500 mg 24 hr tablet,extended release RxNorm: 0285940 Take 1 Tablet(s) Oral every day with the evening meal 023 2022 Inactive famotidine 20 mg tablet RxNorm: 493213 Take 1 Tablet(s) Oral every morning 023 2022 Inactive levothyroxine 50 mcg tablet RxNorm: 547654 Take 1 Tablet(s) Oral every day 023 [facility]23 [facility] hydrochlorothiazide 25 mg tablet RxNorm: 918324 Take 1 Tablet(s) Oral every day 023 2023 [facility] atorvastatin 20 mg tablet RxNorm: 581300 Take 1 Tablet(s) Oral every night at bedtime 023 2023 Active Macrobid 100 mg capsule RxNorm: 226219 1 Capsule(s) Oral every 12 hours with food 023 2022 Inactive omeprazole 40 mg capsule,delayed release RxNorm: 382622 Take 1 Capsule(s) Oral every night at bedtime 023 2022 Inactive trazodone 50 mg tablet RxNorm: 594920 Administer 1 Tablet(s) Oral every night at bedtime 023 No Stop Date Active cholecalciferol (vitamin D3) 50 mcg (2,000 unit) tablet RxNorm: 663947 Take 1 Tablet(s) Oral every day 023 2023 Active Ozempic 1 mg/dose (4 mg/3 mL) subcutaneous pen injector RxNorm: 5009483 USE 1 UNIT DOSE SUBCUTANEOUSLY ON TUE OF EACH WEEK 023 2022 Inactive lisinopril 2.5 mg tablet RxNorm: 172366 Take 1 Tablet(s) Oral every day 023 2022 Inactive Msg From [facility]: Dr. Zapata Requested Ozempic 1 mg/dose (4 mg/3 mL) subcutaneous pen injector RxNorm: 1061713 USE 1 UNIT DOSE SUBCUTANEOUSLY ON TUE OF EACH WEEK 023 2022 Inactive omeprazole 40 mg capsule,delayed release RxNorm: 676447 Take 1 Capsule(s) Oral every night at bedtime 023 2022 Inactive gabapentin 300 mg capsule RxNorm: 027719 Take 1 Capsule(s) Oral three times a day 023 2022 Inactive montelukast 10 mg tablet RxNorm: 983883 Take 1 Tablet(s) Oral every day 023 2022 Inactive omeprazole 20 mg capsule,delayed release RxNorm: 758760 Take 1 Capsule(s) Oral every evening 022 2022 Inactive Alcohol Prep Pads RxNorm: 412243 USE EACH MORNING 022 2021 Inactive E11.42 clotrimazole 1 % topical cream RxNorm: 218921 Apply 1 Application Topical two times a day as needed apply to affected area(s) twice daily until healed 2021 Inactive Victoza 2-Sebastián 0.6 mg/0.1 mL (18 mg/3 mL) subcutaneous pen injector RxNorm: 860948 Inject 0.6-1.8 Milligram(s) Subcutaneous once a week Inject 0.6mg/0.1ml week one, 1.2mg/0.2ml week two, 1.8/0.3ml weekly thereafter 022 2021 Inactive ibuprofen 800 mg tablet RxNorm: 384941 Take 1 Tablet(s) Oral Q8H as needed for pain take with food No Stop Date Active Ozempic 1 mg/dose (4 mg/3 mL) subcutaneous pen injector RxNorm: 9028935 Take 1 Unit Dose Subcutaneous QWeek Tuesday 022 2021 Inactive lisinopril 2.5 mg tablet RxNorm: 876815 Take 1 Tablet(s) Oral every day 2021 Inactive lisinopril 2.5 mg tablet RxNorm: 624977 Take 1 Tablet(s) Oral every day 022 2022 Inactive hydrochlorothiazide 25 mg tablet RxNorm: 626243 Take 1 Tablet(s) Oral every day 2021 Inactive Ozempic 1 mg/dose (4 mg/3 mL) subcutaneous pen injector RxNorm: 8870922 Take 1 Unit Dose Subcutaneous QWeek 022 2021 Inactive famotidine 20 mg tablet RxNorm: 694814 Take 1 Tablet(s) Oral every morning 2021 Inactive levothyroxine 50 mcg tablet RxNorm: 898021 Take 1 Tablet(s) Oral every day 2021 Inactive atorvastatin 20 mg tablet RxNorm: 415873 Take 1 Tablet(s) Oral every night at bedtime 2021 Inactive Cleocin T 1 % lotion RxNorm: 432401 Take 2 Gram(s) Topical every day 022 2021 Inactive Cleocin T 1 % lotion RxNorm: 011824 Take 2 Gram(s) Topical every day 022 2021 Inactive Ozempic 1 mg/dose (4 mg/3 mL) subcutaneous pen injector RxNorm: 8491124 Take 1 Unit Dose Subcutaneous QWeek 022 2021 Inactive Ozempic 0.25 mg or 0.5 mg (2 mg/1.5 mL) subcutaneous pen injector RxNorm: 6004925 INJECT 0.5 MGS SUBCUTANEOUSLY EVERY WEEK 022 2021 Inactive omeprazole 20 mg capsule,delayed release RxNorm: 480273 Take 1 Capsule(s) Oral every evening 2021 Inactive levothyroxine 50 mcg tablet RxNorm: 346167 Take 1 Tablet(s) Oral every day 2021 Inactive atorvastatin 20 mg tablet RxNorm: 565954 Take 1 Tablet(s) Oral every night at bedtime 2021 Inactive This refill negates all other refills of this medication lisinopril 2.5 mg tablet RxNorm: 273382 Take 1 Tablet(s) Oral every day 2021 Inactive gabapentin 300 mg capsule RxNorm: 253427 Take 1 Capsule(s) Oral three times a day 2021 Inactive montelukast 10 mg tablet RxNorm: 671164 Take 1 Tablet(s) Oral every day 2021 Inactive Myrbetriq 50 mg tablet,extended release RxNorm: 6670593 1 Tablet(s) Oral every day No Stop Date Active cholecalciferol (vitamin D3) 50 mcg (2,000 unit) tablet RxNorm: 962129 Take 1 Tablet(s) Oral every day 2022 Inactive Ozempic 0.25 mg or 0.5 mg (2 mg/1.5 mL) subcutaneous pen injector RxNorm: 8282829 inject 0.5 milligrams subcutaneously every week 2021 Inactive Ozempic 0.25 mg or 0.5 mg (2 mg/1.5 mL) subcutaneous pen injector RxNorm: 1636539 Take 0.5 Capsule(s) Injection once a week 022 2021 Inactive omeprazole 20 mg capsule,delayed release RxNorm: 105240 Take 1 Capsule(s) Oral every evening 021 2020 Inactive Ozempic 0.25 mg or 0.5 mg (2 mg/1.5 mL) subcutaneous pen injector RxNorm: 1641505 Take 0.25 Milligram(s) Subcutaneous once a week 2021 Inactive Easy Touch Alcohol Prep Pads RxNorm: 656403 USE DIRECTED EACH MORNING 2021 Inactive Probiotic 10 billion cell capsule RxNorm: 9512832 Take 1 Capsule(s) Oral every day 021 2021 Inactive levothyroxine 50 mcg tablet RxNorm: 190694 Take 1 Tablet(s) Oral every day 2020 Inactive Acid [employer] Services Aide (famotidine) 20 mg tablet RxNorm: 861810 Take 1 Tablet(s) Oral every morning 2020 Inactive Heartburn Relief (famotidine) 10 mg tablet RxNorm: 328159 Take 1 Tablet(s) Oral QAM 021 2020 Inactive levothyroxine 50 mcg tablet RxNorm: 768978 Take 1 Tablet(s) Oral QD 021 2020 Inactive Singulair 10 mg tablet RxNorm: 954635 TAKE (1) TABLET BY MOUTH DAILY 021 2020 Inactive metformin 1,000 mg tablet RxNorm: 263891 1 Tablet(s) Oral two times a day 021 2021 Inactive lisinopril 2.5 mg tablet RxNorm: 371213 Take 1 Tablet(s) Oral every day 021 2020 Inactive hydrochlorothiazide 25 mg tablet RxNorm: 940436 Take 1 Tablet(s) Oral every day 021 2020 Inactive ondansetron 4 mg disintegrating tablet RxNorm: 737538 1 Tablet(s) Oral two times a day 021 2020 Inactive Sudafed 12 Hour 120 mg tablet,extended release RxNorm: 8555237 TAKE 1 TABLET BY MOUTH EVERY 12 HOURS NEEDED 021 2021 Inactive Heartburn Relief (famotidine) 10 mg tablet RxNorm: 067727 Take 1 Tablet(s) Oral every morning 021 2020 Inactive omeprazole 20 mg capsule,delayed release RxNorm: 422589 1 Capsule(s) Oral every evening 021 2020 Inactive sertraline 100 mg tablet RxNorm: 898279 2 Tablet(s) Oral every day 021 2020 Inactive levothyroxine 50 mcg tablet RxNorm: 236584 TAKE (1) TABLET BY MOUTH DAILY 021 2020 Inactive metformin 500 mg tablet RxNorm: 079200 1 Tablet(s) Oral two times a day take with 500mg to equal 1000mg 021 2020 Inactive gabapentin 300 mg capsule RxNorm: 649947 TAKE 1 CAPSULE BY MOUTH THREE TIMES A DAY 021 2020 Inactive lisinopril 2.5 mg tablet RxNorm: 064576 TAKE 1 TABLET BY MOUTH DAILY 021 2020 Inactive gabapentin 300 mg capsule RxNorm: 487398 TAKE 1 CAPSULE BY MOUTH THREE TIMES A DAY 021 2020 Inactive Singulair 10 mg tablet RxNorm: 316864 TAKE (1) TABLET BY MOUTH DAILY 021 2020 Inactive metformin 1,000 mg tablet RxNorm: 932882 1 Tablet(s) Oral two times a day 021 2020 Inactive atorvastatin 40 mg tablet RxNorm: 983413 1 Tablet(s) Oral every day 021 2020 Inactive omeprazole 20 mg capsule,delayed release RxNorm: 500575 1 Capsule(s) Oral every evening 021 2020 Inactive famotidine 10 mg tablet RxNorm: 142377 1 Tablet(s) Oral every morning 021 2020 Inactive Alcohol Prep Pads RxNorm: 602441 USE EACH MORNING 2020 Inactive omeprazole 20 mg capsule,delayed release RxNorm: 093312 1 Capsule(s) Oral two times a day 2021 Inactive omeprazole 20 mg capsule,delayed release RxNorm: 576494 TAKE 1 CAPSULE BY MOUTH EVERY DAY 2021 Inactive Macrobid 100 mg capsule RxNorm: 907407 1 Capsule(s) Oral every 12 hours with food 2020 Inactive omeprazole 20 mg capsule,delayed release RxNorm: 651267 1 Capsule(s) Oral two times a day 2021 Inactive metformin 1,000 mg tablet RxNorm: 579876 1 Tablet(s) Oral two times a day 2020 Inactive start on September 11, 2020 metformin 500 mg tablet RxNorm: 176932 1 Tablet(s) Oral two times a day take with 500mg to equal 1000mg 2019 Inactive gabapentin 300 mg capsule RxNorm: 086388 TAKE 1 CAPSULE BY MOUTH THREE TIMES DAILY 2020 Inactive cetirizine 10 mg tablet RxNorm: 0033825 TAKE (1) TABLET BY MOUTH DAILY 2020 Inactive metformin 500 mg tablet RxNorm: 075086 1 Tablet(s) Oral two times a day 2019 Inactive loperamide 2 mg tablet RxNorm: 691698 1 Tablet(s) Oral as needed take one tablet after each loose stool, maximum of 8 tablets in 24 hours 2021 Inactive Sudafed 12 Hour 120 mg tablet,extended release RxNorm: 9066559 TAKE 1 TABLET BY MOUTH EVERY 12 HOURS NEEDED 2019 Inactive hydrochlorothiazide 25 mg tablet RxNorm: 847198 TAKE (1) TABLET BY MOUTH EVERY DAY 2019 Inactive omeprazole 20 mg capsule,delayed release RxNorm: 851447 TAKE 1 CAPSULE BY MOUTH EVERY DAY 2020 Inactive metformin 500 mg tablet RxNorm: 902655 1 Tablet(s) Oral every day 2019 Inactive True Metrix Glucose Test Strip RxNorm: 1 Test Strips Miscellaneous two times a day as needed No Stop Date Active metformin 500 mg tablet RxNorm: 949988 1 Tablet(s) Oral every day 020 2019 Inactive diclofenac sodium 75 mg tablet,delayed release RxNorm: 971537 1 Tablet(s) PO BID 2021 Inactive This refill negates all other refills of this medication Sudafed 12 Hour 120 mg tablet,extended release RxNorm: 7623654 TAKE 1 TABLET BY MOUTH EVERY 12 HOURS NEEDED 020 2019 Inactive True Metrix Glucose Test Strip RxNorm: 1 Test Strips Miscellaneous every morning 020 2019 Inactive 100/container True Metrix Glucose Test Strip RxNorm: 1 Test Strips Miscellaneous QAM 020 2019 Inactive 100/container loperamide 2 mg tablet RxNorm: 355108 1 Tablet(s) Oral as needed take one tablet after each loose stool, maximum of 8 tablets in 24 hours 2019 Inactive cetirizine 10 mg tablet RxNorm: 2670814 1 Tablet(s) PO daily 2019 Inactive loperamide 2 mg tablet RxNorm: 056964 1 Tablet(s) Oral as needed take one tablet after each loose stool, maximum of 8 tablets in 24 hours 020 2019 Inactive quetiapine 100 mg tablet RxNorm: 116410 1 Tablet(s) Oral every night at bedtime 2019 Inactive levothyroxine 50 mcg tablet RxNorm: 272119 1 Tablet(s) PO daily 020 2020 Inactive gabapentin 300 mg capsule RxNorm: 827593 1 Capsule(s) PO TID 020 2019 Inactive levothyroxine 50 mcg tablet RxNorm: 799430 1 Tablet(s) PO daily 020 2019 Inactive lisinopril 2.5 mg tablet RxNorm: 651821 1 Tablet(s) PO daily 2020 Inactive gabapentin 300 mg capsule RxNorm: 381855 1 Capsule(s) PO TID 2019 Inactive cetirizine 10 mg tablet RxNorm: 6976462 1 Tablet(s) PO daily 2019 Inactive Singulair 10 mg tablet RxNorm: 762270 1 Tablet(s) PO daily 2020 Inactive gentamicin 0.3 % eye drops RxNorm: 208444 1 Drop(s) ophthalmic (eye) four times a day 2019 Inactive gentamicin 0.3 % eye drops RxNorm: 128874 1 Drop(s) ophthalmic (eye) four times a day 2019 Inactive gentamicin 0.3 % eye drops RxNorm: 193344 1 Drop(s) ophthalmic (eye) four times a day 2019 Inactive hydrochlorothiazide 25 mg tablet RxNorm: 079541 1 Tablet(s) Oral every day 2019 Inactive Sudafed 12 Hour 120 mg tablet,extended release RxNorm: 2537576 TAKE (1) TABLET BY MOUTH EVERY 12 HOURS NEEDED 2019 Inactive loperamide 2 mg tablet RxNorm: 239691 1 Tablet(s) Oral as needed take one tablet after each loose stool, maximum of 8 tablets in 24 hours 2019 Inactive loperamide 2 mg tablet RxNorm: 788084 1 Tablet(s) Oral as needed take one tablet after each loose stool, maximum of 8 tablets in 24 hours 2019 Inactive atorvastatin 40 mg tablet RxNorm: 000292 1 Tablet(s) Oral every day 2020 Inactive quetiapine 100 mg tablet RxNorm: 391463 1 Tablet(s) Oral every night at bedtime 2019 Inactive sertraline 100 mg tablet RxNorm: 501803 1 Tablet(s) Oral 020 2019 Inactive omeprazole 20 mg capsule,delayed release RxNorm: 770678 1 Capsule(s) Oral every day 020 2019 Inactive amoxicillin 250 mg capsule RxNorm: 384792 1 Capsule(s) Oral three times a day 2019 Inactive multivitamin with iron-mineral tablet RxNorm: 1 Tablet(s) Oral every day 2021 Inactive cetirizine 10 mg tablet RxNorm: 1816486 1 Tablet(s) PO daily 2019 Inactive This refill negates all other refills of this medication. Please do not auto refill Singulair 10 mg tablet RxNorm: 150381 1 Tablet(s) PO daily 2019 Inactive This refill negates all other refills of this medication gabapentin 300 mg capsule RxNorm: 393806 1 Capsule(s) PO TID 2019 Inactive lisinopril 2.5 mg tablet RxNorm: 193464 1 Tablet(s) PO daily 2019 Inactive levothyroxine 50 mcg tablet RxNorm: 509066 1 Tablet(s) PO daily 2019 Inactive This refill negates all other refills of this medication hydrochlorothiazide 25 mg tablet RxNorm: 148302 1 Tablet(s) Oral every day 2019 Inactive fenugreek seed extract 500 mg capsule RxNorm: 1 Capsule(s) Oral three times a day 2021 Inactive Alcohol Prep Pads RxNorm: 540987 1 Patch TOP QAM 2020 Inactive loperamide 2 mg tablet RxNorm: 356486 1 Tablet(s) Oral as needed take one [...] 2019 Inactive hydrochlorothiazide 25 mg tablet RxNorm: 731615 1 Tablet(s) Oral every day 2019 Inactive Sudafed 12 Hour 120 mg tablet,extended release RxNorm: 8978505 1 Tablet(s) Oral every 12 hours as needed 2018 Inactive omeprazole 20 mg capsule,delayed release RxNorm: 187731 1 Capsule(s) Oral every day 2019 Inactive Sudafed 12 Hour 120 mg tablet,extended release RxNorm: 0148433 1 Tablet(s) Oral every 12 hours as needed 2018 Inactive pantoprazole 40 mg tablet,delayed release RxNorm: 906214 1 Tablet(s) Oral every day 2018 Inactive discontinue any other H2Blkr. and PPI albuterol sulfate 2.5 mg/3 mL (0.083 %) solution for nebulization RxNorm: 855762 1 Vial Inhalation every four hours as needed as needed for dyspnea 2019 Inactive 60/box. This refill negates all other refills of this medication. Please do not fill early. Please do not auto refill. Symbicort 160 mcg-4.5 mcg/actuation HFA aerosol inhaler RxNorm: 9098577 2 Puff(s) INH BID No Stop Date Active Alcohol Prep Pads RxNorm: 487391 1 Patch TOP QAM 019 2019 Inactive Ventolin HFA 90 mcg/actuation aerosol inhaler RxNorm: 702339 2 Puff(s) INH QID 2019 Inactive Please do not fill early. Please do not auto refill. This refill negates all other refills of this medication True Metrix Glucose Test Strip RxNorm: 1 Test Strips Miscellaneous QAM 019 2019 Inactive 100/container atorvastatin 40 mg tablet RxNorm: 430657 1 Tablet(s) Oral every day 019 2019 Inactive buspirone 7.5 mg tablet RxNorm: 309470 1 Tablet(s) PO BID 019 2020 Inactive This refill negates all other refills of this medication hydrochlorothiazide 12.5 mg tablet RxNorm: 402673 1 Tablet(s) PO QAM 019 2019 Inactive levmetamfetamine 50 mg nasal inhaler RxNorm: 1 Unit(s) NASAL Q3-4H Do not use more than every 3 hours or 8 times/24hours 019 2021 Inactive Please do not auto refill. This refill negates all other refills of this medication Ventolin HFA 90 mcg/actuation aerosol inhaler RxNorm: 558706 2 Puff(s) INH QID 019 2018 Inactive Please do not fill early. Please do not auto refill. This refill negates all other refills of this medication Singulair 10 mg tablet RxNorm: 652080 1 Tablet(s) PO daily 019 2019 Inactive This refill negates all other refills of this medication cetirizine 10 mg tablet RxNorm: 3337636 1 Tablet(s) PO daily 019 2019 Inactive This refill negates all other refills of this medication. Please do not auto refill levothyroxine 50 mcg tablet RxNorm: 749634 1 Tablet(s) PO daily 019 2019 Inactive This refill negates all other refills of this medication diclofenac sodium 75 mg tablet,delayed release RxNorm: 518742 1 Tablet(s) PO BID 019 2019 Inactive This refill negates all other refills of this medication ranitidine 150 mg tablet RxNorm: 601776 1 Tablet(s) PO BID 019 2018 Inactive This refill negates all other refills of this medication Calcium 600-D3 Plus (mag-zinc) 600 mg calcium-800 unit-50 mg tablet RxNorm: 1 Tablet(s) PO daily take an additonal tablet for itching. 2018 Inactive This refill negates all other refills of this medication albuterol sulfate 2.5 mg/3 mL (0.083 %) solution for nebulization RxNorm: 798059 1 Vial INH QID 2018 Inactive 60/box. This refill negates all other refills of this medication. Please do not fill early. Please do not auto refill. lisinopril 2.5 mg tablet RxNorm: 566303 1 Tablet(s) PO daily 019 2019 Inactive gabapentin 300 mg capsule RxNorm: 995942 1 Capsule(s) PO TID 019 2019 Inactive atorvastatin 20 mg tablet RxNorm: 691898 1 Tablet(s) PO QHS 2018 Inactive This refill negates all other refills of this medication TRUEplus Lancets 30 gauge RxNorm: 1 Lancets Miscellaneous QAM 019 2018 Inactive 100/box gabapentin 300 mg capsule RxNorm: 421293 1 Capsule(s) PO TID 019 2018 Inactive Flintstones Complete (iron) 18 mg iron chewable tablet RxNorm: 1 Tablet(s) PO daily 019 2021 Inactive This refill negates all other refills of this medication gabapentin 300 mg capsule RxNorm: 136458 1 Capsule(s) PO TID as needed 019 2018 Inactive True Metrix Glucose Test Strip RxNorm: 1 Test Strips Miscellaneous QAM 019 2018 Inactive 100/container Alcohol Prep Pads RxNorm: 600100 1 Patch TOP QAM 019 2018 Inactive TRUEplus Lancets 30 gauge RxNorm: 1 Lancets Miscellaneous QAM 019 2018 Inactive 100/box lisinopril 2.5 mg tablet RxNorm: 364666 1 Tablet(s) PO daily 019 2018 Inactive ranitidine 150 mg tablet RxNorm: 276511 1 Tablet(s) PO BID 019 2018 Inactive This refill negates all other refills of this medication albuterol sulfate 2.5 mg/3 mL (0.083 %) solution for nebulization RxNorm: 840914 1 Vial INH QID 019 2018 Inactive [...] this medication gabapentin 300 mg capsule RxNorm: 007823 1 Capsule(s) PO TID as needed 019 2018 Inactive atorvastatin 20 mg tablet RxNorm: 061216 1 Tablet(s) PO QHS 019 2018 Inactive This refill negates all other refills of this medication trazodone 50 mg tablet RxNorm: 373919 1 Tablet(s) PO QHS 019 2018 Inactive This refill negates all other refills of this medication Ventolin HFA 90 mcg/actuation aerosol inhaler RxNorm: 856507 2 Puff(s) INH QID 019 2018 Inactive Please do not fill early. Please do not auto refill. This refill negates all other refills of this medication Calcium 600-D3 Plus 600 mg calcium-800 unit-50 mg tablet RxNorm: 1 Tablet(s) PO daily take an additonal tablet for itching. 019 2018 Inactive This refill negates all other refills of this medication Singulair 10 mg tablet RxNorm: 217166 1 Tablet(s) PO daily 019 2018 Inactive This refill negates all other refills of this medication buspirone 7.5 mg tablet RxNorm: 908707 1 Tablet(s) PO BID 019 2018 Inactive This refill negates all other refills of this medication diclofenac sodium 75 mg tablet,delayed release RxNorm: 515514 1 Tablet(s) PO BID 019 2018 Inactive This refill negates all other refills of this medication hydrochlorothiazide 12.5 mg tablet RxNorm: 210636 1 Tablet(s) PO QAM 019 2018 Inactive metoprolol succinate ER 50 mg tablet,extended release 24 hr RxNorm: 195175 1 Tablet(s) PO daily 019 2018 Inactive This refill negates all other refills of this medication levothyroxine 50 mcg tablet RxNorm: 131711 1 Tablet(s) PO daily 019 2018 Inactive This refill negates all other refills of this medication cetirizine 10 mg tablet RxNorm: 5347533 1 Tablet(s) PO daily 2018 Inactive This refill negates all other refills of this medication. Please do not auto refill Flintstones Complete (iron) 18 mg iron chewable tablet RxNorm: 1 Tablet(s) PO daily 019 2018 Inactive This refill negates all other refills of this medication buspirone 7.5 mg tablet RxNorm: 669497 1 Tablet(s) PO BID 019 2018 Inactive cetirizine 10 mg tablet RxNorm: 3687786 1 Tablet(s) PO daily 2018 Inactive Guaiasorb DM 10 mg-100 mg/5 mL oral liquid RxNorm: 832745 10 Milliliter(s) PO As needed every 4 hr 018 2018 Inactive Vicks Vaporub 4.7 %-1.2 %-2.6 % topical ointment RxNorm: 9155472 1 Application TOP TID 12/23/2 018 2018 Inactive levmetamfetamine 50 mg nasal inhaler RxNorm: 1 Unit(s) NASAL Q3-4H 2017 Inactive sertraline 50 mg tablet RxNorm: 487059 1 Tablet(s) PO daily 018 2018 Inactive Please note dose trazodone 50 mg tablet RxNorm: 276175 1 Tablet(s) PO QHS 2018 Inactive sertraline 50 mg tablet RxNorm: 525678 1 Tablet(s) PO daily 018 2017 Inactive amoxicillin 500 mg tablet RxNorm: 355558 1 Tablet(s) PO Q12H 2017 Inactive albuterol sulfate 2.5 mg/3 mL (0.083 %) solution for nebulization RxNorm: 752243 1 Vial INH QID 2018 Inactive 60/box. Please do not fill early. Please do not auto refill. Prozac 10 mg capsule RxNorm: 326595 1 Capsule(s) PO daily 2017 Inactive buspirone 7.5 mg tablet RxNorm: 668656 1 Tablet(s) PO BID 018 2018 Inactive gabapentin 300 mg capsule RxNorm: 041852 1 Capsule(s) PO TID as needed 2018 Inactive hydrochlorothiazide 12.5 mg tablet RxNorm: 526724 1 Tablet(s) PO QAM 2018 Inactive ranitidine 150 mg tablet RxNorm: 067001 1 Tablet(s) PO BID 2018 Inactive Macrobid 100 mg capsule RxNorm: 194718 1 Capsule(s) PO Q12H 018 2017 Inactive Singulair 10 mg tablet RxNorm: 828888 1 Tablet(s) PO daily 018 2018 Inactive Ventolin HFA 90 mcg/actuation aerosol inhaler RxNorm: 1292154 2 Puff(s) INH QID 018 2018 Inactive Singulair 10 mg tablet RxNorm: 653029 1 Tablet(s) PO daily 018 2017 Inactive buspirone 7.5 mg tablet RxNorm: 235858 1 Tablet(s) PO BID 018 2017 Inactive Prozac 10 mg capsule RxNorm: 513880 1 Capsule(s) PO daily 018 2017 Inactive diclofenac sodium 75 mg tablet,delayed release RxNorm: 875415 1 Tablet(s) PO BID 018 2017 Inactive lisinopril 2.5 mg tablet RxNorm: 157440 1 Tablet(s) PO daily 018 2017 Inactive Neilmed Pediatric Sinus Rinse Refill packet RxNorm: 1 Unit Dose NASAL PRN 018 2021 Inactive metoprolol succinate ER 50 mg tablet,extended release 24 hr RxNorm: 146845 1 Tablet(s) PO daily 018 2017 Inactive levothyroxine 50 mcg tablet RxNorm: 137322 1 Tablet(s) PO daily 018 2017 Inactive TRUEplus Lancets 30 gauge RxNorm: 1 Lancets Miscellaneous QAM 018 2017 Inactive 100/box Ventolin HFA 90 mcg/actuation aerosol inhaler RxNorm: 373920 2 Puff(s) INH QID 018 2017 Inactive Aleve 220 mg capsule RxNorm: 5173511 1 Capsule(s) PO BID 018 2018 Inactive ranitidine 150 mg tablet RxNorm: 351144 1 Tablet(s) PO BID 018 2017 Inactive gabapentin 300 mg capsule RxNorm: 196515 1 Capsule(s) PO TID as needed 018 2017 Inactive atorvastatin 20 mg tablet RxNorm: 693637 1 Tablet(s) PO QHS 018 2017 Inactive True Metrix Glucose Test Strip RxNorm: 1 Test Strips Miscellaneous QAM 018 2017 Inactive 50/container Calcium 600-D3 Plus 600 mg calcium-800 unit-50 mg tablet RxNorm: 1 Tablet(s) PO daily take an additonal tablet for itching. 018 2017 Inactive hydrochlorothiazide 12.5 mg tablet RxNorm: 862268 1 Tablet(s) PO QAM 018 2017 Inactive Flintstones Complete (iron) 18 mg iron chewable tablet RxNorm: 1 Tablet(s) PO daily 018 2017 Inactive True Metrix Glucose Meter RxNorm: miscellaneous 019 2018 Inactive sertraline 50 mg tablet RxNorm: 575732 1 Tablet(s) PO daily 020 2019 Inactive loperamide 2 mg tablet RxNorm: 746835 oral 019 2018 Inactive d-mannose oral powder RxNorm: PO 018 2021 Inactive Symbicort 160 mcg-4.5 mcg/actuation HFA aerosol inhaler RxNorm: 6836062 2 Puff(s) INH BID 2018 Inactive Medication Administered No Medication Administered data Procedures Procedure Codes Date Patient Health Questionnaire CPT-4: DPHQ Electrocardiogram CPT-4: 10994 06/24/2023 Urinalysis, dip stick CPT-4: 63803 05/04/2023 [place] Assessment CPT-4: DSWA 01/02 Fall Risk Assessment CPT-4: DFRA 01/27/2023 Hypertension CPT-4: HTN 01/27/2023 Patient Health Questionnaire CPT-4: DPHQ Pain Screening CPT-4: PAS 2022 Tobacco Assessment/Screening CPT-4: TCA Hypertension CPT-4: HTN 08/17/2022 [place] Assessment CPT-4: DSWA 04/02 Patient Health [...] CPT-4: VACP Fall Risk Assessment SNOMED CT: 93356185 4 CPT-4: DFRA 01/13/2021 [place] Assessment CPT-4: DSWA 12/01 Urinalysis, dip stick CPT-4: 57996 09/24/2020 Patient Health Questionnaire CPT-4: DPHQ Electrocardiogram CPT-4: 79688 05/14/2020 Tobacco Assessment/Screening CPT-4: TCA Fall Risk Assessment SNOMED CT: 98288969 4 CPT-4: DFRA 01/01/2020 Functional Assessment CPT-4: DFA 01/01/2020 [place] Assessment CPT-4: DSWA 11/04 Patient Health Questionnaire CPT-4: DPHQ [place] Assessment CPT-4: DSWA 10/03 Hypertension CPT-4: HTN 10/17/2019 Fall Risk Assessment SNOMED CT: 24344725 4 CPT-4: DFRA 09/19/2019 Functional Assessment CPT-4: DFA 09/19/2019 Urinalysis, dip stick CPT-4: 75451 06/21/2019 Tobacco Assessment/Screening CPT-4: TCA Patient Health Questionnaire CPT-4: DPHQ AHA/REBECCA Classification Assessment CPT-4: DAHA 04/25/2019 Controlled Substance Report CPT-4: CTRSU 04/03 Urinalysis, dip stick CPT-4: 08709 03/28/2019 Urinalysis, dip stick CPT-4: 08369 03/28/2019 T7A-Lywcdalxqxtksza CPT-4: 64272 Unknown T7I-Fbjbcollszrzrna CPT-4: 28066 Unknown Y2P-Prhqmmldtpsejlk CPT-4: 91276 Unknown I4U-Jrqkkoicxvwxkdk CPT-4: 10456 Unknown H8F-Kvxhwxjfoxcmooh CPT-4: 39431 Unknown M5E-Zihbqyrqccdfbdw CPT-4: 47172 Unknown P5K-Tdguylruuckebak CPT-4: 30747 Unknown H9R-Hbvfjnrofodtrjl CPT-4: 92427 Unknown K6V-Dgaxwuegggompwb CPT-4: 95824 Unknown W0V-Ppyhckzwjisnzhd CPT-4: 19105 Unknown O7O-Basnmkinoizbrfh CPT-4: 13532 Unknown U2P-Arxdluidqkusuue CPT-4: 89504 Unknown Gynecology Referral SNOMED CT: 681527493 CPT-4: R14 Unknown Reason For Visit No [...] Initiated Referral: [facility] WPtel: [address] [place] [address] Cardiovascular Operating Room Nurse placed a call out to the patient to notify her that it has been recommended that she be seen by a urologist. Patient agreed to be seen, does not have a provider of choice and no transportation issues. Cardiovascular Operating Room Nurse faxed referral and clinical notes to [facility] in [place], [place] near the patient's home. Patient to [...] seen and prefers a provider in the [place] or [place] area. Cardiovascular Operating Room Nurse placed a call out to everyone listed in the area and the only location that was able to accept the patient's insurance was [address] [id number] and spoke with Maylin. Maylin asked that the patient's referral, face sheet and visit notes be faxed to . Cardiovascular Operating Room Nurse faxed over requested documents. Patient appointment confirmation letter generated and mailed to her home address. Patient to call to schedule an appointment. Processed Referral: Kathryn Angeles y WPtel: [address] [facility] [address] [place], [place] [id number] Patient notified that it has been advised that she be seen by Neurology. Patient agreed to be seen and prefers to be seen by a provider in the [place], [place] area. Patient denies any concerns with transportation, and prefers to schedule her own appointment. Cardiovascular Operating Room Nurse placed a call out to [facility] and spoke with Neearj Mcfarland: who confirmed that their office is [...]
--- OUTSIDE RECORDS SUMMARY | 2024-01-03 23:27 | XMS_ITS | CCD ---
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 Surfacing Technician Name Role Phone Palomo KING, Anna Primary Care Provider Unav ailable Unavailable Chronic Care Management Unavaila ble Summary Purpose DataExchange Insurance Providers Payer name Policy type / Coverage type Covered democrat ID Effective Begin Date Effective End Date SUKI BUTTS MARIA ESTHER [id number] Unknown Unknown Family history Mother Diagnosis Age [...] Unknown Disability 05/31/[address]: 270802500 Has never s moked or chewed tobacco 05/31/[address]: 533772835 Never drinks alco hol 05/31/2018 Has the patient ever used illegal drugs? 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 ICD-10: Z79.899 ICD-9: V58.69 04/25/2019 Inactive Type 2 diabetes mellitus wit hout complications ICD-10: E11.9 ICD-9: 250.00 10/03/2018 Inactive Wheezing ICD-10: R06.2 ICD-9: 786.07 08/08/2018 Inactive Abnormal urine finding ICD-10: R82.90 ICD-9: 791.9 09/24/2020 Resolved Abrasion of toe ICD-10: S90.416A ICD-9: 917.0 02/14/2020 Resolved [place] eye ICD-10: H10.029 ICD-9: 372.03 12/29/2019 Resolved [...] Instructions Easy Touch Alcohol Prep Pads RxNorm: 480846 USE EACH MORNING 023 2024 Active montelukast 10 mg tablet RxNorm: 396652 Take 1 Tablet(s) Oral every day 023 2022 Inactive gabapentin 300 mg capsule RxNorm: 846194 Take 1 Capsule(s) Oral three times a day 023 2022 Inactive metformin ER 500 mg 24 hr tablet,extended release RxNorm: 2756898 Take 1 Tablet(s) Oral every day with the evening meal 023 2022 Inactive famotidine 20 mg tablet RxNorm: 472671 Take 1 Tablet(s) Oral every morning 023 2022 Inactive levothyroxine 50 mcg tablet RxNorm: 258257 Take 1 Tablet(s) Oral every day 023 2023 [facility]: Approval Requested hydrochlorothiazide 25 mg tablet RxNorm: 457421 Take 1 Tablet(s) Oral every day 023 [address] [facility]: Approval Requested atorvastatin 20 mg tablet RxNorm: 398817 Take 1 Tablet(s) Oral every night at bedtime 023 2023 Active Macrobid 100 mg capsule RxNorm: 783259 1 Capsule(s) Oral every 12 hours with food 023 2022 Inactive omeprazole 40 mg capsule,delayed release RxNorm: 094369 Take 1 Capsule(s) Oral every night at bedtime 023 2022 Inactive trazodone 50 mg tablet RxNorm: 770030 Administer 1 Tablet(s) Oral every night at bedtime 023 No Stop Date Active cholecalciferol (vitamin D3) 50 mcg (2,000 unit) tablet RxNorm: 762730 Take 1 Tablet(s) Oral every day 023 2023 Active Ozempic 1 mg/dose (4 mg/3 mL) subcutaneous pen injector RxNorm: 5024141 USE 1 UNIT DOSE SUBCUTANEOUSLY ON TUE OF EACH WEEK 023 2022 Inactive lisinopril 2.5 mg tablet RxNorm: 302329 Take 1 Tablet(s) Oral every day 023 [address] [facility]: Approval Requested Ozempic 1 mg/dose (4 mg/3 mL) subcutaneous pen injector RxNorm: 2623454 USE 1 UNIT DOSE SUBCUTANEOUSLY ON TUE OF EACH WEEK 023 2022 Inactive omeprazole 40 mg capsule,delayed release RxNorm: 855235 Take 1 Capsule(s) Oral every night at bedtime 023 2022 Inactive gabapentin 300 mg capsule RxNorm: 424490 Take 1 Capsule(s) Oral three times a day 023 2022 Inactive montelukast 10 mg tablet RxNorm: 108661 Take 1 Tablet(s) Oral every day 023 2022 Inactive omeprazole 20 mg capsule,delayed release RxNorm: 518510 Take 1 Capsule(s) Oral every evening 022 2022 Inactive Alcohol Prep Pads RxNorm: 872270 USE EACH MORNING 2021 Inactive E11.42 clotrimazole 1 % topical cream RxNorm: 453711 Apply 1 Application Topical two times a day as needed apply to affected area(s) twice daily until healed 2021 Inactive Victoza 2-Sebastián 0.6 mg/0.1 mL (18 mg/3 mL) subcutaneous pen injector RxNorm: 295781 Inject 0.6-1.8 Milligram(s) Subcutaneous once a week Inject 0.6mg/0.1ml week one, 1.2mg/0.2ml week two, 1.8/0.3ml weekly thereafter 022 2021 Inactive ibuprofen 800 mg tablet RxNorm: 129423 Take 1 Tablet(s) Oral Q8H as needed for pain take with food No Stop Date Active Ozempic 1 mg/dose (4 mg/3 mL) subcutaneous pen injector RxNorm: 9630831 Take 1 Unit Dose Subcutaneous QWeek Tuesday 022 2021 Inactive lisinopril 2.5 mg tablet RxNorm: 923424 Take 1 Tablet(s) Oral every day 022 2021 Inactive lisinopril 2.5 mg tablet RxNorm: 920358 Take 1 Tablet(s) Oral every day 022 2022 Inactive hydrochlorothiazide 25 mg tablet RxNorm: 895956 Take 1 Tablet(s) Oral every day 022 2021 Inactive Ozempic 1 mg/dose (4 mg/3 mL) subcutaneous pen injector RxNorm: 3536404 Take 1 Unit Dose Subcutaneous QWeek 022 2021 Inactive famotidine 20 mg tablet RxNorm: 856938 Take 1 Tablet(s) Oral every morning 2021 Inactive levothyroxine 50 mcg tablet RxNorm: 510341 Take 1 Tablet(s) Oral every day 2021 Inactive atorvastatin 20 mg tablet RxNorm: 765079 Take 1 Tablet(s) Oral every night at bedtime 2021 Inactive Cleocin T 1 % lotion RxNorm: 373839 Take 2 Gram(s) Topical every day 022 2021 Inactive Cleocin T 1 % lotion RxNorm: 947114 Take 2 Gram(s) Topical every day 022 2021 Inactive Ozempic 1 mg/dose (4 mg/3 mL) subcutaneous pen injector RxNorm: 2039866 Take 1 Unit Dose Subcutaneous QWeek 022 2021 Inactive Ozempic 0.25 mg or 0.5 mg (2 mg/1.5 mL) subcutaneous pen injector RxNorm: 6566890 INJECT 0.5 MGS SUBCUTANEOUSLY EVERY WEEK 2021 Inactive omeprazole 20 mg capsule,delayed release RxNorm: 801603 Take 1 Capsule(s) Oral every evening 2021 Inactive levothyroxine 50 mcg tablet RxNorm: 596669 Take 1 Tablet(s) Oral every day 022 2021 Inactive atorvastatin 20 mg tablet RxNorm: 121984 Take 1 Tablet(s) Oral every night at bedtime 2021 Inactive This refill negates all other refills of this medication lisinopril 2.5 mg tablet RxNorm: 059233 Take 1 Tablet(s) Oral every day 04/12/2021 Inactive gabapentin 300 mg capsule RxNorm: 245460 Take 1 Capsule(s) Oral three times a day 022 2021 Inactive montelukast 10 mg tablet RxNorm: 762630 Take 1 Tablet(s) Oral every day 022 2021 Inactive Myrbetriq 50 mg tablet,extended release RxNorm: 4453622 1 Tablet(s) Oral every day No Stop Date Active cholecalciferol (vitamin D3) 50 mcg (2,000 unit) tablet RxNorm: 706720 Take 1 Tablet(s) Oral every day 022 2022 Inactive Ozempic 0.25 mg or 0.5 mg (2 mg/1.5 mL) subcutaneous pen injector RxNorm: 8975449 inject 0.5 milligrams subcutaneously every week 022 2021 Inactive Ozempic 0.25 mg or 0.5 mg (2 mg/1.5 mL) subcutaneous pen injector RxNorm: 5640010 Take 0.5 Capsule(s) Injection once a week 022 2021 Inactive omeprazole 20 mg capsule,delayed release RxNorm: 501454 Take 1 Capsule(s) Oral every evening 2020 Inactive Ozempic 0.25 mg or 0.5 mg (2 mg/1.5 mL) subcutaneous pen injector RxNorm: 5530437 Take 0.25 Milligram(s) Subcutaneous once a week 2021 Inactive Easy Touch Alcohol Prep Pads RxNorm: 591123 USE DIRECTED EACH MORNING 021 2021 Inactive Probiotic 10 billion cell capsule RxNorm: 7248627 Take 1 Capsule(s) Oral every day 021 2021 Inactive levothyroxine 50 mcg tablet RxNorm: 806661 Take 1 Tablet(s) Oral every day 021 2020 Inactive Acid Edge Kitter (famotidine) 20 mg tablet RxNorm: 345150 Take 1 Tablet(s) Oral every morning 021 2020 Inactive Heartburn Relief (famotidine) 10 mg tablet RxNorm: 924676 Take 1 Tablet(s) Oral QAM 021 2020 Inactive levothyroxine 50 mcg tablet RxNorm: 750513 Take 1 Tablet(s) Oral QD 2020 Inactive Singulair 10 mg tablet RxNorm: 879182 TAKE (1) TABLET BY MOUTH DAILY 2020 Inactive metformin 1,000 mg tablet RxNorm: 730348 1 Tablet(s) Oral two times a day 2021 Inactive lisinopril 2.5 mg tablet RxNorm: 123088 Take 1 Tablet(s) Oral every day 2020 Inactive hydrochlorothiazide 25 mg tablet RxNorm: 251517 Take 1 Tablet(s) Oral every day 021 2020 Inactive ondansetron 4 mg disintegrating tablet RxNorm: 824480 1 Tablet(s) Oral two times a day 2020 Inactive Sudafed 12 Hour 120 mg tablet,extended release RxNorm: 9417912 TAKE 1 TABLET BY MOUTH EVERY 12 HOURS NEEDED 2021 Inactive Heartburn Relief (famotidine) 10 mg tablet RxNorm: 066203 Take 1 Tablet(s) Oral every morning 021 2020 Inactive omeprazole 20 mg capsule,delayed release RxNorm: 846017 1 Capsule(s) Oral every evening 021 2020 Inactive sertraline 100 mg tablet RxNorm: 001902 2 Tablet(s) Oral every day 021 2020 Inactive levothyroxine 50 mcg tablet RxNorm: 028900 TAKE (1) TABLET BY MOUTH DAILY 021 2020 Inactive metformin 500 mg tablet RxNorm: 598778 1 Tablet(s) Oral two times a day take with 500mg to equal 1000mg 021 2020 Inactive gabapentin 300 mg capsule RxNorm: 158998 TAKE 1 CAPSULE BY MOUTH THREE TIMES A DAY 021 2020 Inactive lisinopril 2.5 mg tablet RxNorm: 126823 TAKE 1 TABLET BY MOUTH DAILY 021 2020 Inactive gabapentin 300 mg capsule RxNorm: 977577 TAKE 1 CAPSULE BY MOUTH THREE TIMES A DAY 021 2020 Inactive Singulair 10 mg tablet RxNorm: 442679 TAKE (1) TABLET BY MOUTH DAILY 021 2020 Inactive metformin 1,000 mg tablet RxNorm: 714749 1 Tablet(s) Oral two times a day 021 2020 Inactive atorvastatin 40 mg tablet RxNorm: 565851 1 Tablet(s) Oral every day 021 2020 Inactive omeprazole 20 mg capsule,delayed release RxNorm: 733364 1 Capsule(s) Oral every evening 2020 Inactive famotidine 10 mg tablet RxNorm: 497023 1 Tablet(s) Oral every morning 021 2020 Inactive Alcohol Prep Pads RxNorm: 738283 USE EACH MORNING 021 2020 Inactive omeprazole 20 mg capsule,delayed release RxNorm: 999627 1 Capsule(s) Oral two times a day 021 2021 Inactive omeprazole 20 mg capsule,delayed release RxNorm: 996066 TAKE 1 CAPSULE BY MOUTH EVERY DAY 2021 Inactive Macrobid 100 mg capsule RxNorm: 114153 1 Capsule(s) Oral every 12 hours with food 2020 Inactive omeprazole 20 mg capsule,delayed release RxNorm: 690834 1 Capsule(s) Oral two times a day 2021 Inactive metformin 1,000 mg tablet RxNorm: 179515 1 Tablet(s) Oral two times a day 2020 Inactive start on September 11, 2020 metformin 500 mg tablet RxNorm: 589141 1 Tablet(s) Oral two times a day take with 500mg to equal 1000mg 2019 Inactive gabapentin 300 mg capsule RxNorm: 119485 TAKE 1 CAPSULE BY MOUTH THREE TIMES DAILY 2020 Inactive cetirizine 10 mg tablet RxNorm: 0373285 TAKE (1) TABLET BY MOUTH DAILY 2020 Inactive metformin 500 mg tablet RxNorm: 440800 1 Tablet(s) Oral two times a day 2019 Inactive loperamide 2 mg tablet RxNorm: 091213 1 Tablet(s) Oral as needed take one tablet after each loose stool, maximum of 8 tablets in 24 hours 2021 Inactive Sudafed 12 Hour 120 mg tablet,extended release RxNorm: 5392833 TAKE 1 TABLET BY MOUTH EVERY 12 HOURS NEEDED 2019 Inactive hydrochlorothiazide 25 mg tablet RxNorm: 676086 TAKE (1) TABLET BY MOUTH EVERY DAY 2019 Inactive omeprazole 20 mg capsule,delayed release RxNorm: 160366 TAKE 1 CAPSULE BY MOUTH EVERY DAY 2020 Inactive metformin 500 mg tablet RxNorm: 993387 1 Tablet(s) Oral every day 2019 Inactive True Metrix Glucose Test Strip RxNorm: 1 Test Strips Miscellaneous two times a day as needed No Stop Date Active metformin 500 mg tablet RxNorm: 018698 1 Tablet(s) Oral every day 2019 Inactive diclofenac sodium 75 mg tablet,delayed release RxNorm: 998217 1 Tablet(s) PO BID 2021 Inactive This refill negates all other refills of this medication Sudafed 12 Hour 120 mg tablet,extended release RxNorm: 2826031 TAKE 1 TABLET BY MOUTH EVERY 12 HOURS NEEDED 020 2019 Inactive True Metrix Glucose Test Strip RxNorm: 1 Test Strips Miscellaneous every morning 2019 Inactive 100/container True Metrix Glucose Test Strip RxNorm: 1 Test Strips Miscellaneous QA 020 2019 Inactive 100/container loperamide 2 mg tablet RxNorm: 867679 1 Tablet(s) Oral as needed take one tablet after each loose stool, maximum of 8 tablets in 24 hours 020 2019 Inactive cetirizine 10 mg tablet RxNorm: 8030395 1 Tablet(s) PO daily 2019 Inactive loperamide 2 mg tablet RxNorm: 980553 1 Tablet(s) Oral as needed take one tablet after each loose stool, maximum of 8 tablets in 24 hours 020 2019 Inactive quetiapine 100 mg tablet RxNorm: 931032 1 Tablet(s) Oral every night at bedtime 2019 Inactive levothyroxine 50 mcg tablet RxNorm: 702893 1 Tablet(s) PO daily 2020 Inactive gabapentin 300 mg capsule RxNorm: 335738 1 Capsule(s) PO TID 2019 Inactive levothyroxine 50 mcg tablet RxNorm: 319830 1 Tablet(s) PO daily 2019 Inactive lisinopril 2.5 mg tablet RxNorm: 581552 1 Tablet(s) PO daily 020 2020 Inactive gabapentin 300 mg capsule RxNorm: 457644 1 Capsule(s) PO TID 2019 Inactive cetirizine 10 mg tablet RxNorm: 9487033 1 Tablet(s) PO daily 2019 Inactive Singulair 10 mg tablet RxNorm: 080997 1 Tablet(s) PO daily 020 2020 Inactive gentamicin 0.3 % eye drops RxNorm: 416049 1 Drop(s) ophthalmic (eye) four times a day 2019 Inactive gentamicin 0.3 % eye drops RxNorm: 206089 1 Drop(s) ophthalmic (eye) four times a day 020 2019 Inactive gentamicin 0.3 % eye drops RxNorm: 403823 1 Drop(s) ophthalmic (eye) four times a day 020 2019 Inactive hydrochlorothiazide 25 mg tablet RxNorm: 909045 1 Tablet(s) Oral every day 020 2019 Inactive Sudafed 12 Hour 120 mg tablet,extended release RxNorm: 5951771 TAKE (1) TABLET BY MOUTH EVERY 12 HOURS NEEDED 2019 Inactive loperamide 2 mg tablet RxNorm: 068089 1 Tablet(s) Oral as needed take one tablet after each loose stool, maximum of 8 tablets in 24 hours 020 2019 Inactive loperamide 2 mg tablet RxNorm: 845196 1 Tablet(s) Oral as needed take one tablet after each loose stool, maximum of 8 tablets in 24 hours 020 2019 Inactive atorvastatin 40 mg tablet RxNorm: 060043 1 Tablet(s) Oral every day 2020 Inactive quetiapine 100 mg tablet RxNorm: 867224 1 Tablet(s) Oral every night at bedtime 2019 Inactive sertraline 100 mg tablet RxNorm: 931876 1 Tablet(s) Oral 020 2019 Inactive omeprazole 20 mg capsule,delayed release RxNorm: 172885 1 Capsule(s) Oral every day 020 2019 Inactive amoxicillin 250 mg capsule RxNorm: 071269 1 Capsule(s) Oral three times a day 020 2019 Inactive multivitamin with iron-mineral tablet RxNorm: 1 Tablet(s) Oral every day 2021 Inactive cetirizine 10 mg tablet RxNorm: 6468751 1 Tablet(s) PO daily 2019 Inactive This refill negates all other refills of this medication. Please do not auto refill Singulair 10 mg tablet RxNorm: 241428 1 Tablet(s) PO daily 020 2019 Inactive This refill negates all other refills of this medication gabapentin 300 mg capsule RxNorm: 564117 1 Capsule(s) PO TID 020 2019 Inactive lisinopril 2.5 mg tablet RxNorm: 232144 1 Tablet(s) PO daily 2019 Inactive levothyroxine 50 mcg tablet RxNorm: 360256 1 Tablet(s) PO daily 2019 Inactive This refill negates all other refills of this medication hydrochlorothiazide 25 mg tablet RxNorm: 014372 1 Tablet(s) Oral every day 2019 Inactive fenugreek seed extract 500 mg capsule RxNorm: 1 Capsule(s) Oral three times a day 2021 Inactive Alcohol Prep Pads RxNorm: 933232 1 Patch TOP QAM 2020 Inactive loperamide 2 mg tablet RxNorm: 584193 1 Tablet(s) Oral as needed take one [...] 2019 Inactive hydrochlorothiazide 25 mg tablet RxNorm: 547964 1 Tablet(s) Oral every day 2019 Inactive Sudafed 12 Hour 120 mg tablet,extended release RxNorm: 9153801 1 Tablet(s) Oral every 12 hours as needed 019 2018 Inactive omeprazole 20 mg capsule,delayed release RxNorm: 363899 1 Capsule(s) Oral every day 019 2019 Inactive Sudafed 12 Hour 120 mg tablet,extended release RxNorm: 7041217 1 Tablet(s) Oral every 12 hours as needed 019 2018 Inactive pantoprazole 40 mg tablet,delayed release RxNorm: 435340 1 Tablet(s) Oral every day 019 2018 Inactive discontinue any other H2Blkr. and PPI albuterol sulfate 2.5 mg/3 mL (0.083 %) solution for nebulization RxNorm: 655624 1 Vial Inhalation every four hours as needed as needed for dyspnea 2019 Inactive 60/box. This refill negates all other refills of this medication. Please do not fill early. Please do not auto refill. Symbicort 160 mcg-4.5 mcg/actuation HFA aerosol inhaler RxNorm: 6565562 2 Puff(s) INH BID No Stop Date Active Alcohol Prep Pads RxNorm: 444526 1 Patch TOP QAM 2019 Inactive Ventolin HFA 90 mcg/actuation aerosol inhaler RxNorm: 238502 2 Puff(s) INH QID 2019 Inactive Please do not fill early. Please do not auto refill. This refill negates all other refills of this medication True Metrix Glucose Test Strip RxNorm: 1 Test Strips Miscellaneous QAM 019 2019 Inactive 100/container atorvastatin 40 mg tablet RxNorm: 059563 1 Tablet(s) Oral every day 019 2019 Inactive buspirone 7.5 mg tablet RxNorm: 121106 1 Tablet(s) PO BID 019 2020 Inactive This refill negates all other refills of this medication hydrochlorothiazide 12.5 mg tablet RxNorm: 003825 1 Tablet(s) PO QAM 019 2019 Inactive levmetamfetamine 50 mg nasal inhaler RxNorm: 1 Unit(s) NASAL Q3-4H Do not use more than every 3 hours or 8 times/24hours 019 2021 Inactive Please do not auto refill. This refill negates all other refills of this medication Ventolin HFA 90 mcg/actuation aerosol inhaler RxNorm: 613128 2 Puff(s) INH QID 019 2018 Inactive Please do not fill early. Please do not auto refill. This refill negates all other refills of this medication Singulair 10 mg tablet RxNorm: 252230 1 Tablet(s) PO daily 019 2019 Inactive This refill negates all other refills of this medication cetirizine 10 mg tablet RxNorm: 4632644 1 Tablet(s) PO daily 019 2019 Inactive This refill negates all other refills of this medication. Please do not auto refill levothyroxine 50 mcg tablet RxNorm: 155578 1 Tablet(s) PO daily 019 2019 Inactive This refill negates all other refills of this medication diclofenac sodium 75 mg tablet,delayed release RxNorm: 027907 1 Tablet(s) PO BID 019 2019 Inactive This refill negates all other refills of this medication ranitidine 150 mg tablet RxNorm: 528055 1 Tablet(s) PO BID 019 2018 Inactive This refill negates all other refills of this medication Calcium 600-D3 Plus (mag-zinc) 600 mg calcium-800 unit-50 mg tablet RxNorm: 1 Tablet(s) PO daily take an additonal tablet for itching. 019 2018 Inactive This refill negates all other refills of this medication albuterol sulfate 2.5 mg/3 mL (0.083 %) solution for nebulization RxNorm: 447422 1 Vial INH QID 019 2018 Inactive 60/box. This refill negates all other refills of this medication. Please do not fill early. Please do not auto refill. lisinopril 2.5 mg tablet RxNorm: 484615 1 Tablet(s) PO daily 019 2019 Inactive gabapentin 300 mg capsule RxNorm: 455278 1 Capsule(s) PO TID 2019 Inactive atorvastatin 20 mg tablet RxNorm: 316234 1 Tablet(s) PO QHS 019 2018 Inactive This refill negates all other refills of this medication TRUEplus Lancets 30 gauge RxNorm: 1 Lancets Miscellaneous QAM 019 2018 Inactive 100/box gabapentin 300 mg capsule RxNorm: 458467 1 Capsule(s) PO TID 019 2018 Inactive Flintstones Complete (iron) 18 mg iron chewable tablet RxNorm: 1 Tablet(s) PO daily 019 2021 Inactive This refill negates all other refills of this medication gabapentin 300 mg capsule RxNorm: 398007 1 Capsule(s) PO TID as needed 2018 Inactive True Metrix Glucose Test Strip RxNorm: 1 Test Strips Miscellaneous QAM 2018 Inactive 100/container Alcohol Prep Pads RxNorm: 346919 1 Patch TOP QAM 019 2018 Inactive TRUEplus Lancets 30 gauge RxNorm: 1 Lancets Miscellaneous QAM 019 2018 Inactive 100/box lisinopril 2.5 mg tablet RxNorm: 850251 1 Tablet(s) PO daily 019 2018 Inactive ranitidine 150 mg tablet RxNorm: 486618 1 Tablet(s) PO BID 2018 Inactive This refill negates all other refills of this medication albuterol sulfate 2.5 mg/3 mL (0.083 %) solution for nebulization RxNorm: 137972 1 Vial INH QID 019 2018 Inactive [...] this medication gabapentin 300 mg capsule RxNorm: 582537 1 Capsule(s) PO TID as needed 019 2018 Inactive atorvastatin 20 mg tablet RxNorm: 984907 1 Tablet(s) PO QHS 019 2018 Inactive This refill negates all other refills of this medication trazodone 50 mg tablet RxNorm: 899139 1 Tablet(s) PO QHS 019 2018 Inactive This refill negates all other refills of this medication Ventolin HFA 90 mcg/actuation aerosol inhaler RxNorm: 015230 2 Puff(s) INH QID 019 2018 Inactive Please do not fill early. Please do not auto refill. This refill negates all other refills of this medication Calcium 600-D3 Plus 600 mg calcium-800 unit-50 mg tablet RxNorm: 1 Tablet(s) PO daily take an additonal tablet for itching. 019 2018 Inactive This refill negates all other refills of this medication Singulair 10 mg tablet RxNorm: 740474 1 Tablet(s) PO daily 019 2018 Inactive This refill negates all other refills of this medication buspirone 7.5 mg tablet RxNorm: 745007 1 Tablet(s) PO BID 019 2018 Inactive This refill negates all other refills of this medication diclofenac sodium 75 mg tablet,delayed release RxNorm: 795871 1 Tablet(s) PO BID 019 2018 Inactive This refill negates all other refills of this medication hydrochlorothiazide 12.5 mg tablet RxNorm: 834091 1 Tablet(s) PO QAM 019 2018 Inactive metoprolol succinate ER 50 mg tablet,extended release 24 hr RxNorm: 450065 1 Tablet(s) PO daily 019 2018 Inactive This refill negates all other refills of this medication levothyroxine 50 mcg tablet RxNorm: 141324 1 Tablet(s) PO daily 019 2018 Inactive This refill negates all other refills of this medication cetirizine 10 mg tablet RxNorm: 6977237 1 Tablet(s) PO daily 019 2018 Inactive This refill negates all other refills of this medication. Please do not auto refill Flintstones Complete (iron) 18 mg iron chewable tablet RxNorm: 1 Tablet(s) PO daily 019 2018 Inactive This refill negates all other refills of this medication buspirone 7.5 mg tablet RxNorm: 021115 1 Tablet(s) PO BID 2018 Inactive cetirizine 10 mg tablet RxNorm: 9999520 1 Tablet(s) PO daily 2018 Inactive Guaiasorb DM 10 mg-100 mg/5 mL oral liquid RxNorm: 258647 10 Milliliter(s) PO As needed every 4 hr 2018 Inactive Vicks Vaporub 4.7 %-1.2 %-2.6 % topical ointment RxNorm: 6280435 1 Application TOP TID 2018 Inactive levmetamfetamine 50 mg nasal inhaler RxNorm: 1 Unit(s) NASAL Q3-4H 2017 Inactive sertraline 50 mg tablet RxNorm: 955076 1 Tablet(s) PO daily 2018 Inactive Please note dose trazodone 50 mg tablet RxNorm: 630804 1 Tablet(s) PO QHS 018 2018 Inactive sertraline 50 mg tablet RxNorm: 382532 1 Tablet(s) PO daily 2017 Inactive amoxicillin 500 mg tablet RxNorm: 691442 1 Tablet(s) PO Q12H 2017 Inactive albuterol sulfate 2.5 mg/3 mL (0.083 %) solution for nebulization RxNorm: 571144 1 Vial INH QID 018 2018 Inactive 60/box. Please do not fill early. Please do not auto refill. Prozac 10 mg capsule RxNorm: 629985 1 Capsule(s) PO daily 018 2017 Inactive buspirone 7.5 mg tablet RxNorm: 168229 1 Tablet(s) PO BID 018 2018 Inactive gabapentin 300 mg capsule RxNorm: 292203 1 Capsule(s) PO TID as needed 018 2018 Inactive hydrochlorothiazide 12.5 mg tablet RxNorm: 155310 1 Tablet(s) PO QAM 018 2018 Inactive ranitidine 150 mg tablet RxNorm: 085466 1 Tablet(s) PO BID 018 2018 Inactive Macrobid 100 mg capsule RxNorm: 110828 1 Capsule(s) PO Q12H 018 2017 Inactive Singulair 10 mg tablet RxNorm: 876432 1 Tablet(s) PO daily 018 2018 Inactive Ventolin HFA 90 mcg/actuation aerosol inhaler RxNorm: 2396001 2 Puff(s) INH QID 018 2018 Inactive Singulair 10 mg tablet RxNorm: 954350 1 Tablet(s) PO daily 018 2017 Inactive buspirone 7.5 mg tablet RxNorm: 272505 1 Tablet(s) PO BID 018 2017 Inactive Prozac 10 mg capsule RxNorm: 654095 1 Capsule(s) PO daily 018 2017 Inactive diclofenac sodium 75 mg tablet,delayed release RxNorm: 911643 1 Tablet(s) PO BID 018 2017 Inactive lisinopril 2.5 mg tablet RxNorm: 881493 1 Tablet(s) PO daily 018 2017 Inactive Neilmed Pediatric Sinus Rinse Refill packet RxNorm: 1 Unit Dose NASAL PRN 018 2021 Inactive metoprolol succinate ER 50 mg tablet,extended release 24 hr RxNorm: 463014 1 Tablet(s) PO daily 018 2017 Inactive levothyroxine 50 mcg tablet RxNorm: 543932 1 Tablet(s) PO daily 018 2017 Inactive TRUEplus Lancets 30 gauge RxNorm: 1 Lancets Miscellaneous QAM 018 2017 Inactive 100/box Ventolin HFA 90 mcg/actuation aerosol inhaler RxNorm: 537643 2 Puff(s) INH QID 018 2017 Inactive Aleve 220 mg capsule RxNorm: 2968926 1 Capsule(s) PO BID 018 2018 Inactive ranitidine 150 mg tablet RxNorm: 816227 1 Tablet(s) PO BID 018 2017 Inactive gabapentin 300 mg capsule RxNorm: 440667 1 Capsule(s) PO TID as needed 2017 Inactive atorvastatin 20 mg tablet RxNorm: 909774 1 Tablet(s) PO QHS 018 2017 Inactive True Metrix Glucose Test Strip RxNorm: 1 Test Strips [facility] 018 2017 Inactive 50/container Calcium 600-D3 Plus 600 mg calcium-800 unit-50 mg tablet RxNorm: 1 Tablet(s) PO daily take an additonal tablet for itching. 018 2017 Inactive hydrochlorothiazide 12.5 mg tablet RxNorm: 520611 1 Tablet(s) PO QAM 018 2017 Inactive Flintstones Complete (iron) 18 mg iron chewable tablet RxNorm: 1 Tablet(s) PO daily 018 2017 Inactive True Metrix Glucose Meter RxNorm: miscellaneous 019 2018 Inactive sertraline 50 mg tablet RxNorm: 119441 1 Tablet(s) PO daily 020 2019 Inactive loperamide 2 mg tablet RxNorm: 335816 oral 019 2018 Inactive d-mannose oral powder RxNorm: PO 018 2021 Inactive Symbicort 160 mcg-4.5 mcg/actuation HFA aerosol inhaler RxNorm: 0644699 2 Puff(s) INH BID 019 2018 Inactive Medication Administered No Medication Administered data Procedures Procedure Codes Date Urinalysis, dip stick CPT-4: 08648 05/04/2023 Chelan Fany Assessment CPT-4: DSWA 01/02 Fall Risk Assessment CPT-4: DFRA 01/27/2023 Hypertension CPT-4: HTN 01/27/2023 Patient Health Questionnaire CPT-4: DPHQ Pain Screening CPT-4: PAS 2022 Tobacco Assessment/Screening CPT-4: TCA Hypertension CPT-4: HTN 08/17/2022 Chelan Fany Assessment CPT-4: DSWA 04/02 Patient Health [...] CPT-4: VACP Fall Risk Assessment SNOMED CT: 47843962 4 CPT-4: DFRA 01/13/2021 Chelan Fany Assessment CPT-4: DSWA 12/01 Urinalysis, dip stick CPT-4: 33517 09/24/2020 Patient Health Questionnaire CPT-4: DPHQ Electrocardiogram CPT-4: 22479 05/14/2020 Tobacco Assessment/Screening CPT-4: TCA Fall Risk Assessment SNOMED CT: 32056456 4 CPT-4: DFRA 01/01/2020 Functional Assessment CPT-4: DFA 01/01/2020 Chelan Fany Assessment CPT-4: DSWA 11/04 Patient Health Questionnaire CPT-4: DPHQ Chelan Fany Assessment CPT-4: DSWA 10/03 Hypertension CPT-4: HTN 10/17/2019 Fall Risk Assessment SNOMED CT: 27315403 4 CPT-4: DFRA 09/19/2019 Functional Assessment CPT-4: DFA 09/19/2019 Urinalysis, dip stick CPT-4: 03148 06/21/2019 Tobacco Assessment/Screening CPT-4: TCA Patient Health Questionnaire CPT-4: DPHQ AHA/REBECCA Classification Assessment CPT-4: DAHA 04/25/2019 Controlled Substance Report CPT-4: CTRSU 04/03 Urinalysis, dip stick CPT-4: 55226 03/28/2019 Urinalysis, dip stick CPT-4: 37259 03/28/2019 V8Z-Nbzomlbbjyhzjvn CPT-4: 64813 Unknown R1J-Alzernohdtdowrq CPT-4: 50841 Unknown M0U-Iunnahklhrjwytg CPT-4: 76549 Unknown A6U-Aobzgzjcddlwklj CPT-4: 34131 Unknown Y9Z-Ahfjtvvvbtoohgk CPT-4: 58586 Unknown F4M-Djmyzeyjwuzifco CPT-4: 04543 Unknown Z6U-Mddvlbpxwzqmumu CPT-4: 16486 Unknown L5U-Hkwnmqgsvtahaao CPT-4: 79279 Unknown T5K-Ejhmgtrzsuqiejg CPT-4: 87688 Unknown O9D-Yfdyibvwdryklts CPT-4: 50217 Unknown Y0V-Pipgntjzhgmuoes CPT-4: 28788 Unknown B3E-Czjbdenaqkbqlsa CPT-4: 30558 Unknown Gynecology Referral SNOMED CT: 772306189 CPT-4: R14 Unknown Reason For Visit No Reason For Visit data Plan of Care Planned Activity Notes Codes Status Date Referral: Pending Gynecology Referral Information Referral Processed Referral: Pending Pulmonolog y Referral Information Referral Processed Referral: Pending Psychiatry Referral Information Referral Initiated Referral: Pending Respirator y Services Referral Information Referral Initiated Referral: Pending Ophthalmol ogy Referral Information Referral Initiated Referral: [facility] WPtel: [address] [place] [address] [address] [id number] Motel Operator placed a call out to the patient to notify her that it has been recommended that she be seen by a urologist. Patient agreed to be seen, does not have a provider of choice and no transportation issues. Motel Operator faxed referral and clinical notes to [facility] in [place], [place] near the patient's home. Patient to [...] prefers a provider in the [place] or [place] area. Motel Operator placed a call out to everyone listed in the area and the only location that was able to accept the patient's insurance was [address] [address] and spoke with Maylin. Maylin asked that the patient's referral, face sheet and visit notes be faxed to . Motel Operator faxed over requested documents. Patient appointment confirmation letter generated and mailed to her home address. Patient to call to schedule an appointment. Processed Referral: [facility] W[facility]: [id number] Patient notified that it has been advised that she be seen by Neurology. Patient agreed to be seen and prefers to be seen by a provider in the [place], [place] area. Patient denies any concerns with transportation, and prefers to schedule her own appointment. Motel Operator placed a call out to [facility] and spoke with Neeraj P: who confirmed that their office is able to accept new patients and the patient's insurance. After confirming the providers fax number, field underwriter faxed over the patient's referral, and [...]
--- OUTSIDE RECORDS SUMMARY | 2024-01-03 23:27 | XMS_ITS | CCD ---
Author Name Leena Culver NP Address [address] [place] [address] [place] [id number] Phone Organization [facility] Phone Care Team Providers Care Application Spec Name Role Phone Anna Culver NP Primary Care Provider Unav ailable Unavailable Chronic Care Management Unavaila ble Summary Purpose DataExchange Insurance Providers Payer name Policy type / Coverage type Covered libertarian ID Effective Begin Date Effective End Date SUKI MAYO [id number] Unknown Unknown Family history Mother Diagnosis Age [...] Unknown Disability 05/31/[address]: 304661264 Has never s moked or chewed tobacco 05/31/[address]: 518318652 Never drinks alco hol 05/31/2018 Has the patient ever used illegal drugs? Unknown Has never used illegal drugs 05/31/2018 DNR Order/ Advanced Directive Unknown Full Code 05/31/2018 Allergies, Adverse Reactions, Alerts Substance Reaction Codes Entered Date Inactivated Date Status OxyContin itch, RxNorm: 910702 01/13/2021 No Inactive Da te Active *No [...] ICD-10: E78. 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) dr edith therapy ICD-10: Z79.899 ICD-9: V58.69 04/25/2019 Inactive Type 2 diabetes mellitus wit hout complications ICD-10: E11.9 ICD-9: 250.00 10/03/2018 Inactive Wheezing ICD-10: R06.2 ICD-9: 786.07 08/08/2018 Inactive Abnormal urine finding ICD-10: R82.90 ICD-9: 791.9 09/24/2020 Resolved Abrasion of toe ICD-10: S90.416A ICD-9: 917.0 02/14/2020 Resolved [place] ICD-10: H10.029 ICD-9: 372.03 12/29/2019 Resolved [...] Fill Instructions Januvia 25 mg tablet RxNorm: 602790 Take 1 Tablet(s) Oral every day 023 2022 Inactive Ozempic 1 mg/dose (4 mg/3 mL) subcutaneous pen injector RxNorm: 4427959 INJECT 1 UNITS DOSE SUBCUTANEOUSLY ON TUESDAY OF EACH WEEK 023 2022 Inactive cetirizine 10 mg tablet RxNorm: 5082458 TAKE (1) TABLET BY MOUTH DAILY 023 2023 Inactive amoxicillin 500 mg tablet RxNorm: 786609 Take 1 Tablet(s) Oral two times a day 023 2022 Inactive omeprazole 40 mg capsule,delayed release RxNorm: 20021111 Take 1 Capsule(s) Oral at bed time 023 2022 Inactive Easy Touch Alcohol Prep Pads RxNorm: 444908 USE EACH MORNING 023 2024 Active montelukast 10 mg tablet RxNorm: 356812 Take 1 Tablet(s) Oral every day 023 2022 Inactive gabapentin 300 mg capsule RxNorm: 110111 Take 1 Capsule(s) Oral three times a day 023 2022 Inactive metformin ER 500 mg 24 hr tablet,extended release RxNorm: 4307322 Take 1 Tablet(s) Oral every day with the evening meal 023 2022 Inactive famotidine 20 mg tablet RxNorm: 102125 Take 1 Tablet(s) Oral every morning 023 2022 Inactive levothyroxine 50 mcg tablet RxNorm: 765709 Take 1 Tablet(s) Oral every day 023 2023 [facility]: Approval Requested hydrochlorothiazide 25 mg tablet RxNorm: 981615 Take 1 Tablet(s) Oral every day 023 2023 [facility]: Approval Requested atorvastatin 20 mg tablet RxNorm: 577521 Take 1 Tablet(s) Oral every night at bedtime 023 2023 Active Macrobid 100 mg capsule RxNorm: 904809 1 Capsule(s) Oral every 12 hours with food 023 2022 Inactive omeprazole 40 mg capsule,delayed release RxNorm: 898237 Take 1 Capsule(s) Oral every night at bedtime 023 2022 Inactive trazodone 50 mg tablet RxNorm: 727800 Administer 1 Tablet(s) Oral every night at bedtime 023 No Stop Date Active cholecalciferol (vitamin D3) 50 mcg (2,000 unit) tablet RxNorm: 122501 Take 1 Tablet(s) Oral every day 023 2023 Active Ozempic 1 mg/dose (4 mg/3 mL) subcutaneous pen injector RxNorm: 0935501 USE 1 UNIT DOSE SUBCUTANEOUSLY ON TUE OF EACH WEEK 023 2022 Inactive lisinopril 2.5 mg tablet RxNorm: 432016 Take 1 Tablet(s) Oral every day 023 2022 Inactive Msg From [facility]: Dr. Zapata Requested Ozempic 1 mg/dose (4 mg/3 mL) subcutaneous pen injector RxNorm: 5721199 USE 1 UNIT DOSE SUBCUTANEOUSLY ON TUE OF EACH WEEK 023 2022 Inactive omeprazole 40 mg capsule,delayed release RxNorm: 079498 Take 1 Capsule(s) Oral every night at bedtime 023 2022 Inactive gabapentin 300 mg capsule RxNorm: 066314 Take 1 Capsule(s) Oral three times a day 023 2022 Inactive montelukast 10 mg tablet RxNorm: 829907 Take 1 Tablet(s) Oral every day 023 2022 Inactive omeprazole 20 mg capsule,delayed release RxNorm: 411113 Take 1 Capsule(s) Oral every evening 022 2022 Inactive Alcohol Prep Pads RxNorm: 788118 USE EACH MORNING 022 2021 Inactive E11.42 clotrimazole 1 % topical cream RxNorm: 530625 Apply 1 Application Topical two times a day as needed apply to affected area(s) twice daily until healed 022 2021 Inactive Victoza 2-Sebastián 0.6 mg/0.1 mL (18 mg/3 mL) subcutaneous pen injector RxNorm: 434175 Inject 0.6-1.8 Milligram(s) Subcutaneous once a week Inject 0.6mg/0.1ml week one, 1.2mg/0.2ml week two, 1.8/0.3ml weekly thereafter 022 2021 Inactive ibuprofen 800 mg tablet RxNorm: 249109 Take 1 Tablet(s) Oral Q8H as needed for pain take with food No Stop Date Active Ozempic 1 mg/dose (4 mg/3 mL) subcutaneous pen injector RxNorm: 5566674 Take 1 Unit Dose Subcutaneous QWeek Tuesday 022 2021 Inactive lisinopril 2.5 mg tablet RxNorm: 351931 Take 1 Tablet(s) Oral every day 022 2021 Inactive lisinopril 2.5 mg tablet RxNorm: 750129 Take 1 Tablet(s) Oral every day 022 2022 Inactive hydrochlorothiazide 25 mg tablet RxNorm: 288549 Take 1 Tablet(s) Oral every day 022 2021 Inactive Ozempic 1 mg/dose (4 mg/3 mL) subcutaneous pen injector RxNorm: 1515875 Take 1 Unit Dose Subcutaneous QWeek 022 2021 Inactive famotidine 20 mg tablet RxNorm: 017300 Take 1 Tablet(s) Oral every morning 2021 Inactive levothyroxine 50 mcg tablet RxNorm: 140508 Take 1 Tablet(s) Oral every day 022 2021 Inactive atorvastatin 20 mg tablet RxNorm: 960880 Take 1 Tablet(s) Oral every night at bedtime 022 2021 Inactive Cleocin T 1 % lotion RxNorm: 943009 Take 2 Gram(s) Topical every day 022 2021 Inactive Cleocin T 1 % lotion RxNorm: 221173 Take 2 Gram(s) Topical every day 022 2021 Inactive Ozempic 1 mg/dose (4 mg/3 mL) subcutaneous pen injector RxNorm: 3358272 Take 1 Unit Dose Subcutaneous QWeek 022 2021 Inactive Ozempic 0.25 mg or 0.5 mg (2 mg/1.5 mL) subcutaneous pen injector RxNorm: 9775489 INJECT 0.5 MGS SUBCUTANEOUSLY EVERY WEEK 2021 Inactive omeprazole 20 mg capsule,delayed release RxNorm: 109427 Take 1 Capsule(s) Oral every evening 2021 Inactive levothyroxine 50 mcg tablet RxNorm: 954801 Take 1 Tablet(s) Oral every day 022 2021 Inactive atorvastatin 20 mg tablet RxNorm: 345317 Take 1 Tablet(s) Oral every night at bedtime 2021 Inactive This refill negates all other refills of this medication lisinopril 2.5 mg tablet RxNorm: 402565 Take 1 Tablet(s) Oral every day 022 2021 Inactive gabapentin 300 mg capsule RxNorm: 046074 Take 1 Capsule(s) Oral three times a day 022 2021 Inactive montelukast 10 mg tablet RxNorm: 049931 Take 1 Tablet(s) Oral every day 022 2021 Inactive Myrbetriq 50 mg tablet,extended release RxNorm: 6235659 1 Tablet(s) Oral every day No Stop Date Active cholecalciferol (vitamin D3) 50 mcg (2,000 unit) tablet RxNorm: 352893 Take 1 Tablet(s) Oral every day 022 2022 Inactive Ozempic 0.25 mg or 0.5 mg (2 mg/1.5 mL) subcutaneous pen injector RxNorm: 0390171 inject 0.5 milligrams subcutaneously every week 022 2021 Inactive Ozempic 0.25 mg or 0.5 mg (2 mg/1.5 mL) subcutaneous pen injector RxNorm: 0941484 Take 0.5 Capsule(s) Injection once a week 022 2021 Inactive omeprazole 20 mg capsule,delayed release RxNorm: 173724 Take 1 Capsule(s) Oral every evening 2020 Inactive Ozempic 0.25 mg or 0.5 mg (2 mg/1.5 mL) subcutaneous pen injector RxNorm: 2090079 Take 0.25 Milligram(s) Subcutaneous once a week 2021 Inactive Easy Touch Alcohol Prep Pads RxNorm: 535853 USE DIRECTED EACH MORNING 2021 Inactive Probiotic 10 billion cell capsule RxNorm: 5864773 Take 1 Capsule(s) Oral every day 2021 Inactive levothyroxine 50 mcg tablet RxNorm: 763228 Take 1 Tablet(s) Oral every day 2020 Inactive Acid Film Archivist (famotidine) 20 mg tablet RxNorm: 864037 Take 1 Tablet(s) Oral every morning 2020 Inactive Heartburn Relief (famotidine) 10 mg tablet RxNorm: 129244 Take 1 Tablet(s) Oral QAM 021 2020 Inactive levothyroxine 50 mcg tablet RxNorm: 698632 Take 1 Tablet(s) Oral QD 021 2020 Inactive Singulair 10 mg tablet RxNorm: 359713 TAKE (1) TABLET BY MOUTH DAILY 2020 Inactive metformin 1,000 mg tablet RxNorm: 087936 1 Tablet(s) Oral two times a day 2021 Inactive lisinopril 2.5 mg tablet RxNorm: 617177 Take 1 Tablet(s) Oral every day 021 2020 Inactive hydrochlorothiazide 25 mg tablet RxNorm: 216802 Take 1 Tablet(s) Oral every day 021 2020 Inactive ondansetron 4 mg disintegrating tablet RxNorm: 028704 1 Tablet(s) Oral two times a day 021 2020 Inactive Sudafed 12 Hour 120 mg tablet,extended release RxNorm: 6200226 TAKE 1 TABLET BY MOUTH EVERY 12 HOURS NEEDED 021 2021 Inactive Heartburn Relief (famotidine) 10 mg tablet RxNorm: 730140 Take 1 Tablet(s) Oral every morning 021 2020 Inactive omeprazole 20 mg capsule,delayed release RxNorm: 078658 1 Capsule(s) Oral every evening 021 2020 Inactive sertraline 100 mg tablet RxNorm: 314695 2 Tablet(s) Oral every day 021 2020 Inactive levothyroxine 50 mcg tablet RxNorm: 131280 TAKE (1) TABLET BY MOUTH DAILY 021 2020 Inactive metformin 500 mg tablet RxNorm: 715851 1 Tablet(s) Oral two times a day take with 500mg to equal 1000mg 021 2020 Inactive gabapentin 300 mg capsule RxNorm: 886034 TAKE 1 CAPSULE BY MOUTH THREE TIMES A DAY 021 2020 Inactive lisinopril 2.5 mg tablet RxNorm: 182095 TAKE 1 TABLET BY MOUTH DAILY 2020 Inactive gabapentin 300 mg capsule RxNorm: 208457 TAKE 1 CAPSULE BY MOUTH THREE TIMES A DAY 021 2020 Inactive Singulair 10 mg tablet RxNorm: 893805 TAKE (1) TABLET BY MOUTH DAILY 021 2020 Inactive metformin 1,000 mg tablet RxNorm: 056402 1 Tablet(s) Oral two times a day 021 2020 Inactive atorvastatin 40 mg tablet RxNorm: 932104 1 Tablet(s) Oral every day 021 2020 Inactive omeprazole 20 mg capsule,delayed release RxNorm: 462360 1 Capsule(s) Oral every evening 021 2020 Inactive famotidine 10 mg tablet RxNorm: 122987 1 Tablet(s) Oral every morning 021 2020 Inactive Alcohol Prep Pads RxNorm: 323232 USE EACH MORNING 2020 Inactive omeprazole 20 mg capsule,delayed release RxNorm: 688249 1 Capsule(s) Oral two times a day 2021 Inactive omeprazole 20 mg capsule,delayed release RxNorm: 087603 TAKE 1 CAPSULE BY MOUTH EVERY DAY 2021 Inactive Macrobid 100 mg capsule RxNorm: 377041 1 Capsule(s) Oral every 12 hours with food 2020 Inactive omeprazole 20 mg capsule,delayed release RxNorm: 149832 1 Capsule(s) Oral two times a day 2021 Inactive metformin 1,000 mg tablet RxNorm: 064243 1 Tablet(s) Oral two times a day 2020 Inactive start on September 11, 2020 metformin 500 mg tablet RxNorm: 518259 1 Tablet(s) Oral two times a day take with 500mg to equal 1000mg 2019 Inactive gabapentin 300 mg capsule RxNorm: 396708 TAKE 1 CAPSULE BY MOUTH THREE TIMES DAILY 2020 Inactive cetirizine 10 mg tablet RxNorm: 3175765 TAKE (1) TABLET BY MOUTH DAILY 2020 Inactive metformin 500 mg tablet RxNorm: 418927 1 Tablet(s) Oral two times a day 2019 Inactive loperamide 2 mg tablet RxNorm: 426504 1 Tablet(s) Oral as needed take one tablet after each loose stool, maximum of 8 tablets in 24 hours 2021 Inactive Sudafed 12 Hour 120 mg tablet,extended release RxNorm: 4440896 TAKE 1 TABLET BY MOUTH EVERY 12 HOURS NEEDED 2019 Inactive hydrochlorothiazide 25 mg tablet RxNorm: 124496 TAKE (1) TABLET BY MOUTH EVERY DAY 2019 Inactive omeprazole 20 mg capsule,delayed release RxNorm: 445558 TAKE 1 CAPSULE BY MOUTH EVERY DAY 2020 Inactive metformin 500 mg tablet RxNorm: 909324 1 Tablet(s) Oral every day 2019 Inactive True Metrix Glucose Test Strip RxNorm: 1 Test Strips Miscellaneous two times a day as needed No Stop Date Active metformin 500 mg tablet RxNorm: 843519 1 Tablet(s) Oral every day 2019 Inactive diclofenac sodium 75 mg tablet,delayed release RxNorm: 211212 1 Tablet(s) PO BID 2021 Inactive This refill negates all other refills of this medication Sudafed 12 Hour 120 mg tablet,extended release RxNorm: 1757608 TAKE 1 TABLET BY MOUTH EVERY 12 HOURS NEEDED 020 2019 Inactive True Metrix Glucose Test Strip RxNorm: 1 Test Strips Miscellaneous every morning 2019 Inactive 100/container True Metrix Glucose Test Strip RxNorm: 1 Test Strips Miscellaneous QAM 020 2019 Inactive 100/container loperamide 2 mg tablet RxNorm: 495311 1 Tablet(s) Oral as needed take one tablet after each loose stool, maximum of 8 tablets in 24 hours 020 2019 Inactive cetirizine 10 mg tablet RxNorm: 1132783 1 Tablet(s) PO daily 2019 Inactive loperamide 2 mg tablet RxNorm: 222855 1 Tablet(s) Oral as needed take one tablet after each loose stool, maximum of 8 tablets in 24 hours 020 2019 Inactive quetiapine 100 mg tablet RxNorm: 848344 1 Tablet(s) Oral every night at bedtime 2019 Inactive levothyroxine 50 mcg tablet RxNorm: 872998 1 Tablet(s) PO daily 020 2020 Inactive gabapentin 300 mg capsule RxNorm: 975843 1 Capsule(s) PO TID 020 2019 Inactive levothyroxine 50 mcg tablet RxNorm: 538398 1 Tablet(s) PO daily 020 2019 Inactive lisinopril 2.5 mg tablet RxNorm: 796734 1 Tablet(s) PO daily 2020 Inactive gabapentin 300 mg capsule RxNorm: 482827 1 Capsule(s) PO TID 2019 Inactive cetirizine 10 mg tablet RxNorm: 0060566 1 Tablet(s) PO daily 2019 Inactive Singulair 10 mg tablet RxNorm: 854609 1 Tablet(s) PO daily 2020 Inactive gentamicin 0.3 % eye drops RxNorm: 619230 1 Drop(s) ophthalmic (eye) four times a day 2019 Inactive gentamicin 0.3 % eye drops RxNorm: 822461 1 Drop(s) ophthalmic (eye) four times a day 2019 Inactive gentamicin 0.3 % eye drops RxNorm: 570969 1 Drop(s) ophthalmic (eye) four times a day 2019 Inactive hydrochlorothiazide 25 mg tablet RxNorm: 681726 1 Tablet(s) Oral every day 2019 Inactive Sudafed 12 Hour 120 mg tablet,extended release RxNorm: 7057625 TAKE (1) TABLET BY MOUTH EVERY 12 HOURS NEEDED 2019 Inactive loperamide 2 mg tablet RxNorm: 006499 1 Tablet(s) Oral as needed take one tablet after each loose stool, maximum of 8 tablets in 24 hours 2019 Inactive loperamide 2 mg tablet RxNorm: 093280 1 Tablet(s) Oral as needed take one tablet after each loose stool, maximum of 8 tablets in 24 hours 020 2019 Inactive atorvastatin 40 mg tablet RxNorm: 667034 1 Tablet(s) Oral every day 2020 Inactive quetiapine 100 mg tablet RxNorm: 123678 1 Tablet(s) Oral every night at bedtime 2019 Inactive sertraline 100 mg tablet RxNorm: 252187 1 Tablet(s) Oral 020 2019 Inactive omeprazole 20 mg capsule,delayed release RxNorm: 903240 1 Capsule(s) Oral every day 020 2019 Inactive amoxicillin 250 mg capsule RxNorm: 953511 1 Capsule(s) Oral three times a day 2019 Inactive multivitamin with iron-mineral tablet RxNorm: 1 Tablet(s) Oral every day 020 2021 Inactive cetirizine 10 mg tablet RxNorm: 2785993 1 Tablet(s) PO daily 2019 Inactive This refill negates all other refills of this medication. Please do not auto refill Singulair 10 mg tablet RxNorm: 704106 1 Tablet(s) PO daily 2019 Inactive This refill negates all other refills of this medication gabapentin 300 mg capsule RxNorm: 141519 1 Capsule(s) PO TID 2019 Inactive lisinopril 2.5 mg tablet RxNorm: 681280 1 Tablet(s) PO daily 2019 Inactive levothyroxine 50 mcg tablet RxNorm: 766378 1 Tablet(s) PO daily 2019 Inactive This refill negates all other refills of this medication hydrochlorothiazide 25 mg tablet RxNorm: 934613 1 Tablet(s) Oral every day 2019 Inactive fenugreek seed extract 500 mg capsule RxNorm: 1 Capsule(s) Oral three times a day 020 2021 Inactive Alcohol Prep Pads RxNorm: 908828 1 Patch TOP QAM 2020 Inactive loperamide 2 mg tablet RxNorm: 998217 1 Tablet(s) Oral as needed take one [...] 2019 Inactive hydrochlorothiazide 25 mg tablet RxNorm: 898994 1 Tablet(s) Oral every day 019 2019 Inactive Sudafed 12 Hour 120 mg tablet,extended release RxNorm: 8258183 1 Tablet(s) Oral every 12 hours as needed 019 2018 Inactive omeprazole 20 mg capsule,delayed release RxNorm: 301839 1 Capsule(s) Oral every day 2019 Inactive Sudafed 12 Hour 120 mg tablet,extended release RxNorm: 4881554 1 Tablet(s) Oral every 12 hours as needed 2018 Inactive pantoprazole 40 mg tablet,delayed release RxNorm: 871708 1 Tablet(s) Oral every day 2018 Inactive discontinue any other H2Blkr. and PPI albuterol sulfate 2.5 mg/3 mL (0.083 %) solution for nebulization RxNorm: 791366 1 Vial Inhalation every four hours as needed as needed for dyspnea 2019 Inactive 60/box. This refill negates all other refills of this medication. Please do not fill early. Please do not auto refill. Symbicort 160 mcg-4.5 mcg/actuation HFA aerosol inhaler RxNorm: 9110650 2 Puff(s) INH BID No Stop Date Active Alcohol Prep Pads RxNorm: 151850 1 Patch TOP QAM 019 2019 Inactive Ventolin HFA 90 mcg/actuation aerosol inhaler RxNorm: 785326 2 Puff(s) INH QID 2019 Inactive Please do not fill early. Please do not auto refill. This refill negates all other refills of this medication True Metrix Glucose Test Strip RxNorm: 1 Test Strips Miscellaneous QAM 019 2019 Inactive 100/container atorvastatin 40 mg tablet RxNorm: 784679 1 Tablet(s) Oral every day 019 2019 Inactive buspirone 7.5 mg tablet RxNorm: 331869 1 Tablet(s) PO BID 019 2020 Inactive This refill negates all other refills of this medication hydrochlorothiazide 12.5 mg tablet RxNorm: 202350 1 Tablet(s) PO QAM 019 2019 Inactive levmetamfetamine 50 mg nasal inhaler RxNorm: 1 Unit(s) NASAL Q3-4H Do not use more than every 3 hours or 8 times/24hours 019 2021 Inactive Please do not auto refill. This refill negates all other refills of this medication Ventolin HFA 90 mcg/actuation aerosol inhaler RxNorm: 657720 2 Puff(s) INH QID 019 2018 Inactive Please do not fill early. Please do not auto refill. This refill negates all other refills of this medication Singulair 10 mg tablet RxNorm: 757293 1 Tablet(s) PO daily 019 2019 Inactive This refill negates all other refills of this medication cetirizine 10 mg tablet RxNorm: 6716320 1 Tablet(s) PO daily 019 2019 Inactive This refill negates all other refills of this medication. Please do not auto refill levothyroxine 50 mcg tablet RxNorm: 861891 1 Tablet(s) PO daily 019 2019 Inactive This refill negates all other refills of this medication diclofenac sodium 75 mg tablet,delayed release RxNorm: 740236 1 Tablet(s) PO BID 019 2019 Inactive This refill negates all other refills of this medication ranitidine 150 mg tablet RxNorm: 239252 1 Tablet(s) PO BID 019 2018 Inactive This refill negates all other refills of this medication Calcium 600-D3 Plus (mag-zinc) 600 mg calcium-800 unit-50 mg tablet RxNorm: 1 Tablet(s) PO daily take an additonal tablet for itching. 019 2018 Inactive This refill negates all other refills of this medication albuterol sulfate 2.5 mg/3 mL (0.083 %) solution for nebulization RxNorm: 296113 1 Vial INH QID 2018 Inactive 60/box. This refill negates all other refills of this medication. Please do not fill early. Please do not auto refill. lisinopril 2.5 mg tablet RxNorm: 714073 1 Tablet(s) PO daily 019 2019 Inactive gabapentin 300 mg capsule RxNorm: 153199 1 Capsule(s) PO TID 019 2019 Inactive atorvastatin 20 mg tablet RxNorm: 769889 1 Tablet(s) PO QHS 2018 Inactive This refill negates all other refills of this medication TRUEplus Lancets 30 gauge RxNorm: 1 Lancets Miscellaneous QAM 019 2018 Inactive 100/box gabapentin 300 mg capsule RxNorm: 772428 1 Capsule(s) PO TID 019 2018 Inactive Flintstones Complete (iron) 18 mg iron chewable tablet RxNorm: 1 Tablet(s) PO daily 019 2021 Inactive This refill negates all other refills of this medication gabapentin 300 mg capsule RxNorm: 121208 1 Capsule(s) PO TID as needed 019 2018 Inactive True Metrix Glucose Test Strip RxNorm: 1 Test Strips Miscellaneous QAM 019 2018 Inactive 100/container Alcohol Prep Pads RxNorm: 430726 1 Patch TOP QAM 019 2018 Inactive TRUEplus Lancets 30 gauge RxNorm: 1 Lancets Miscellaneous QAM 019 2018 Inactive 100/box lisinopril 2.5 mg tablet RxNorm: 950527 1 Tablet(s) PO daily 019 2018 Inactive ranitidine 150 mg tablet RxNorm: 433722 1 Tablet(s) PO BID 019 2018 Inactive This refill negates all other refills of this medication albuterol sulfate 2.5 mg/3 mL (0.083 %) solution for nebulization RxNorm: 992251 1 Vial INH QID 019 2018 Inactive [...] this medication gabapentin 300 mg capsule RxNorm: 153189 1 Capsule(s) PO TID as needed 019 2018 Inactive atorvastatin 20 mg tablet RxNorm: 438806 1 Tablet(s) PO QHS 019 2018 Inactive This refill negates all other refills of this medication trazodone 50 mg tablet RxNorm: 175744 1 Tablet(s) PO QHS 019 2018 Inactive This refill negates all other refills of this medication Ventolin HFA 90 mcg/actuation aerosol inhaler RxNorm: 135538 2 Puff(s) INH QID 019 2018 Inactive Please do not fill early. Please do not auto refill. This refill negates all other refills of this medication Calcium 600-D3 Plus 600 mg calcium-800 unit-50 mg tablet RxNorm: 1 Tablet(s) PO daily take an additonal tablet for itching. 019 2018 Inactive This refill negates all other refills of this medication Singulair 10 mg tablet RxNorm: 700473 1 Tablet(s) PO daily 019 2018 Inactive This refill negates all other refills of this medication buspirone 7.5 mg tablet RxNorm: 965855 1 Tablet(s) PO BID 019 2018 Inactive This refill negates all other refills of this medication diclofenac sodium 75 mg tablet,delayed release RxNorm: 416208 1 Tablet(s) PO BID 019 2018 Inactive This refill negates all other refills of this medication hydrochlorothiazide 12.5 mg tablet RxNorm: 264353 1 Tablet(s) PO QAM 019 2018 Inactive metoprolol succinate ER 50 mg tablet,extended release 24 hr RxNorm: 014808 1 Tablet(s) PO daily 019 2018 Inactive This refill negates all other refills of this medication levothyroxine 50 mcg tablet RxNorm: 189290 1 Tablet(s) PO daily 019 2018 Inactive This refill negates all other refills of this medication cetirizine 10 mg tablet RxNorm: 7390687 1 Tablet(s) PO daily 019 2018 Inactive This refill negates all other refills of this medication. Please do not auto refill Flintstones Complete (iron) 18 mg iron chewable tablet RxNorm: 1 Tablet(s) PO daily 019 2018 Inactive This refill negates all other refills of this medication buspirone 7.5 mg tablet RxNorm: 935171 1 Tablet(s) PO BID 019 2018 Inactive cetirizine 10 mg tablet RxNorm: 2431071 1 Tablet(s) PO daily 2018 Inactive Guaiasorb DM 10 mg-100 mg/5 mL oral liquid RxNorm: 029173 10 Milliliter(s) PO As needed every 4 hr 2018 Inactive Vicks Vaporub 4.7 %-1.2 %-2.6 % topical ointment RxNorm: 6438468 1 Application TOP TID 2018 Inactive levmetamfetamine 50 mg nasal inhaler RxNorm: 1 Unit(s) NASAL Q3-4H 2017 Inactive sertraline 50 mg tablet RxNorm: 163759 1 Tablet(s) PO daily 2018 Inactive Please note dose trazodone 50 mg tablet RxNorm: 290136 1 Tablet(s) PO QHS 2018 Inactive sertraline 50 mg tablet RxNorm: 949925 1 Tablet(s) PO daily 2017 Inactive amoxicillin 500 mg tablet RxNorm: 380580 1 Tablet(s) PO Q12H 2017 Inactive albuterol sulfate 2.5 mg/3 mL (0.083 %) solution for nebulization RxNorm: 752474 1 Vial INH QID 2018 Inactive 60/box. Please do not fill early. Please do not auto refill. Prozac 10 mg capsule RxNorm: 261518 1 Capsule(s) PO daily 2017 Inactive buspirone 7.5 mg tablet RxNorm: 276130 1 Tablet(s) PO BID 2018 Inactive gabapentin 300 mg capsule RxNorm: 247656 1 Capsule(s) PO TID as needed 2018 Inactive hydrochlorothiazide 12.5 mg tablet RxNorm: 178040 1 Tablet(s) PO QAM 2018 Inactive ranitidine 150 mg tablet RxNorm: 349483 1 Tablet(s) PO BID 2018 Inactive Macrobid 100 mg capsule RxNorm: 357581 1 Capsule(s) PO Q12H 018 2017 Inactive Singulair 10 mg tablet RxNorm: 216901 1 Tablet(s) PO daily 2018 Inactive Ventolin HFA 90 mcg/actuation aerosol inhaler RxNorm: 2524559 2 Puff(s) INH QID 018 2018 Inactive Singulair 10 mg tablet RxNorm: 763875 1 Tablet(s) PO daily 018 2017 Inactive buspirone 7.5 mg tablet RxNorm: 434619 1 Tablet(s) PO BID 018 2017 Inactive Prozac 10 mg capsule RxNorm: 664248 1 Capsule(s) PO daily 018 2017 Inactive diclofenac sodium 75 mg tablet,delayed release RxNorm: 934316 1 Tablet(s) PO BID 018 2017 Inactive lisinopril 2.5 mg tablet RxNorm: 980276 1 Tablet(s) PO daily 018 2017 Inactive [facility] Pediatric Sinus Rinse Refill packet RxNorm: 1 Unit Dose NASAL PRN 018 2021 Inactive metoprolol succinate ER 50 mg tablet,extended release 24 hr RxNorm: 295544 1 Tablet(s) PO daily 018 2017 Inactive levothyroxine 50 mcg tablet RxNorm: 779876 1 Tablet(s) PO daily 018 2017 Inactive TRUEplus Lancets 30 gauge RxNorm: 1 Lancets Miscellaneous QAM 018 2017 Inactive 100/box Ventolin HFA 90 mcg/actuation aerosol inhaler RxNorm: 285123 2 Puff(s) INH QID 018 2017 Inactive Aleve 220 mg capsule RxNorm: 4249915 1 Capsule(s) PO BID 018 2018 Inactive ranitidine 150 mg tablet RxNorm: 945888 1 Tablet(s) PO BID 018 2017 Inactive gabapentin 300 mg capsule RxNorm: 083955 1 Capsule(s) PO TID as needed 018 2017 Inactive atorvastatin 20 mg tablet RxNorm: 643984 1 Tablet(s) PO QHS 018 2017 Inactive True Metrix Glucose Test Strip RxNorm: 1 Test Strips Miscellaneous QAM 018 2017 Inactive 50/container Calcium 600-D3 Plus 600 mg calcium-800 unit-50 mg tablet RxNorm: 1 Tablet(s) PO daily take an additonal tablet for itching. 018 2017 Inactive hydrochlorothiazide 12.5 mg tablet RxNorm: 998403 1 Tablet(s) PO QAM 018 2017 Inactive Flintstones Complete (iron) 18 mg iron chewable tablet RxNorm: 1 Tablet(s) PO daily 018 2017 Inactive True Metrix Glucose Meter RxNorm: miscellaneous 019 2018 Inactive sertraline 50 mg tablet RxNorm: 162211 1 Tablet(s) PO daily 020 2019 Inactive loperamide 2 mg tablet RxNorm: 717838 oral 019 2018 Inactive d-mannose oral powder RxNorm: PO 018 2021 Inactive Symbicort 160 mcg-4.5 mcg/actuation HFA aerosol inhaler RxNorm: 8342085 2 Puff(s) INH BID 019 2018 Inactive Medication Administered No Medication Administered data Procedures Procedure Codes Date Patient Health Questionnaire CPT-4: DPHQ Electrocardiogram CPT-4: 95216 06/24/2023 Electrocardiogram Finding/Abnormal: _Sinus Rhythm Low voltage in precordial leads. - Nonspecific T-abnormality. CPT-4: 89633Wgznruo 023 Patient Health Questionnaire Little interest or pleasure [...] for depression- NO PLAN NEEDED CPT-4: DPHQUnknown 06/24/2023 Functional Assessment ADLs - Patient needs direct assistance, cuing, or supervision, to perform the following safely:/*No assistance, cuing, or supervision needed, IADLs - Patient needs direct assistance, cuing, or supervision, to perform the following safely:/taking medications, IADLs - Patient needs direct assistance, cuing, or supervision, to perform the following safely:/transportation CPT-4: DFAUnknown 06/24/2023 Urinalysis, dip stick CPT-4: 05975 05/04/2023 [place] Fany Assessment CPT-4: DSWA 01/02 Fall Risk Assessment CPT-4: DFRA 01/27/2023 Hypertension CPT-4: HTN 01/27/2023 Patient Health Questionnaire CPT-4: DPHQ Pain Screening CPT-4: PAS 2022 Tobacco Assessment/Screening CPT-4: TCA Hypertension CPT-4: HTN 08/17/2022 Chester Fany Assessment CPT-4: DSWA 04/02 Patient Health [...] CPT-4: VACP Fall Risk Assessment SNOMED CT: 46427448 4 CPT-4: DFRA 01/13/2021 Chester Fany Assessment CPT-4: DSWA 12/01 Urinalysis, dip stick CPT-4: 29794 09/24/2020 Patient Health Questionnaire CPT-4: DPHQ Electrocardiogram CPT-4: 32802 05/14/2020 Tobacco Assessment/Screening CPT-4: TCA Fall Risk Assessment SNOMED CT: 67657379 4 CPT-4: DFRA 01/01/2020 Functional Assessment CPT-4: DFA 01/01/2020 Chester Fany Assessment CPT-4: DSWA 11/04 Patient Health Questionnaire CPT-4: DPHQ [place] Fany Assessment CPT-4: DSWA 10/03 Hypertension CPT-4: HTN 10/17/2019 Fall Risk Assessment SNOMED CT: 34433564 4 CPT-4: DFRA 09/19/2019 Functional Assessment CPT-4: DFA 09/19/2019 Urinalysis, dip stick CPT-4: 09942 06/21/2019 Tobacco Assessment/Screening CPT-4: TCA Patient Health Questionnaire CPT-4: DPHQ AHA/REBECCA Classification Assessment CPT-4: DAHA 04/25/2019 Controlled Substance Report CPT-4: CTRSU 04/03 Urinalysis, dip stick CPT-4: 53823 03/28/2019 Urinalysis, dip stick CPT-4: 94401 03/28/2019 B2F-Idrlmbempoevxgt CPT-4: 12403 Unknown S0D-Tbhvzremhhnmqml CPT-4: 77931 Unknown W6S-Oqvymifzkjpxnyy CPT-4: 06461 Unknown Q7Q-Jenecvtatexbdlv CPT-4: 74729 Unknown K4U-Bmtyescamwuqwke CPT-4: 56803 Unknown Y4Q-Veiqwrkppnmrhiw CPT-4: 46723 Unknown X3P-Uzmxopsgqzsykgs CPT-4: 67638 Unknown Q7R-Gmciaxvktaqornh CPT-4: 29518 Unknown V2R-Ozohtuxgparstow CPT-4: 24619 Unknown D4K-Mddqvmvqegfcohm CPT-4: 55044 Unknown H4B-Iqpcljllattvloo CPT-4: 12003 Unknown Q2F-Japahnfowawweqd CPT-4: 28194 Unknown Gynecology Referral SNOMED CT: 487292500 CPT-4: R14 Unknown Vital Signs Date Vital 06/24/2023 Blood Pressure 1: 122/76 Code: 8480-6 BMI: 51.1 Code: 73761-7 Heart Rate 1: 67 bpm Height: 4'11 Code: 8302-2 Respiratory Rate: 16 bpm SpO2: 98% Temperature: 36.7 (C) / 98.1 (F) Weight: 253 lbs Code: 66801-6 Reason For Visit Reason For Visit Effective Dates Notes HTN 06/24/2023 depression 06/24/2023 weight gain/obesity 06/24/2023 diabetes mellitus 06/24/2023 Interim health update 06/24/2023 Encounters Encounter Performer Location Location Address Codes Magdi e ([id number]) Home or Residence Visit Est Pt - Moderate Level, 40 mins Diagnosis: Type 2 diabetes mellitus with peripheral neuropathy[ICD10: E11.42] Diagnosis: Hypertensive heart disease without heart failure[ICD10: I11.9] Diagnosis: Major depression, recurrent[ICD10: F33.9] Diagnosis: Adult BMI 50.0-59.9 kg/sq m[ICD10: Z68.43] Anna Culver [place] [facility] [address] [place] [address] CPT-4: 61429 06/24/2023 Plan of Care Planned Activity Notes [...] 2022, remain motivated for weight loss) 06/24/2023 Patient Education: Hypertension Completed 06/24/2023 Patient Education: Depression Comple chase 06/24/2023 Patient Education: Patient Medication Summary Completed 06/24/2023 Patient Education: Weight Gain Completed 06/24/2023 Patient Education: Diabetes Complete d 06/24/2023 Patient Education: Obesity Completed 06/24/2023 Appointment: Anna Culver WPtel: [address] [place] [address] E410 05/04/2023 Appointment: Anna Culver WPtel: [address] [place] [address] E410 01/27/2023 Appointment: Anna Culver WPtel: [address] [place] [address] E410 11/23/2022 Appointment: Anna Culver WPtel: [address] [place] [address] E410 2022 Appointment: Anna Culver WPtel: [address] [place] [address] E410 08/17/2022 Appointment: Anna Culver WPtel: [address] [place] [address] E410 06/23/2022 Appointment: Chivo Bishop WPtel: [address] [place] [address] E410 04/19/2022 Appointment: Chivo Bishop WPtel: [address] [place] [address] E410 02/11/2022 Appointment: Mikey Nair WPtel: [facility] [address] [id number] [place] E410 12/03/2021 Appointment: Chivo Bishop WPtel: [address] [place] [address] E410 11/02/2021 Appointment: Chivo Bishop WPtel: [address] [place] [address] E410 10/07/2021 Appointment: Chivo Bishop WPtel: [address] [place] [address] ETV 09/10/2021 Appointment: Chivo Bishop WPtel: [phone] [place] [address] ETV 08/13/2021 Appointment: Chivo Bishop WPtel: [address] [place] [address] ETV 07/06/2021 Appointment: Chivo Bishop WPtel: [address] [place] [address] PHTV 06/10/2021 Appointment: Anna Culver WPtel: [address] [place] [address] ETV 06/02/2021 Appointment: Chivo Bishop WPtel: [address] [place] [address] ETV 05/20/2021 Appointment: Anna Culver WPtel: [address] [place] [address] ETV 04/28/2021 Appointment: Chivo Bishop WPtel: [address] [place] [address] ETV 04/15/2021 Appointment: Anna Culver WPtel: [address] [place] [address] E410 04/01/2021 Appointment: Anna Culver WPtel: [address] [place] [address] ETV 03/24/2021 Appointment: Anna Culver WPtel: [address] [place] [address] ETV 03/13/2021 Appointment: Anna Culver WPtel: [address] [place] [address] E410 02/11/2021 Appointment: Chivo Bishop WPtel: [address] [place] [address] E410 01/29/2021 Appointment: Anna Culver WPtel: [address] [place] [address] ETV 01/13/2021 Appointment: Anna Culver WPtel: [address] [place] [address] E410 12/17/2020 Appointment: Chivo Bishop WPtel: [address] [place] [address] ETV 11/28/2020 Appointment: Anna Culver WPtel: [address] [place] [address] ETV 11/24/2020 Appointment: Anna Culver WPtel: [address] [place] [address] E410 10/29/2020 Appointment: Anna Culver WPtel: [address] [place] [address] E410 09/24/2020 Appointment: Anna Culver WPtel: [address] [place] [address] [place] ETV 08/26/2020 Appointment: Anna Culver WPtel: [address] [place] [address] [place] ETV 08/19/2020 Appointment: Anna Culver WPtel: [address] [place] [address] [place] ETV 07/22/2020 Appointment: Anna Culver WPtel: [address] [place] [address] [place] ETV 07/08/2020 Appointment: Gianna Birmingham: [facility] 100 [id number] [place] ECHO 07/02/2020 Appointment: Anna Culver WPtel: [phone] E452 06/11/2020 Appointment: Anna Culver WPtel: [phone] [place] [address] E452 05/14/2020 Appointment: Anna Culver WPtel: [address] [place] [address] E452 04/17/2020 Appointment: Anna Culver WPtel: [phone] [place] [address] E452 03/21/2020 Appointment: Anna Culver WPtel: [address] [place] [address] E452 02/14/2020 Appointment: Anna Culver WPtel: [address] [place] [address] E452 01/24/2020 Appointment: Anna Culver WPtel: [address] [place] [address] E452 01/01/2020 Appointment: Anna Culver WPtel: [address] [place] [address] E452 11/28/2019 Appointment: Anna Culver WPtel: [address] [place] [address] E452 10/17/2019 Appointment: Anna Culver WPtel: [address] [place] [address] E452 09/19/2019 Appointment: Sudha Hernadez WPtel: [address] [facility] [id number] E452 07/04/2019 Appointment: Sudha Hernadez WPtel: [address] [facility] [id number] E452 06/21/2019 Appointment: Charlene Oropeza WPtel: [address] [facility] b [id number] E452 05/24/2019 Appointment: Bianca Delgadoedo E452 04/27/2019 Appointment: Charlene Oropeza WPtel: [address] [facility] b [id number] E452 04/25/2019 Appointment: Rasta Palafox WPtel: [address] [facility] b [id number] E452 03/28/2019 Appointment: Rasta Palafox WPtel: [address] [facility] b [id number] E452 02/14/2019 Appointment: Rasta Palafox WPtel: [address] [facility] [id number] E452 01/31/2019 Appointment: Rasta Palafox WPtel: [address] [address] [id number] E420 12/27/2018 Referral: Pending Gynecology Referral Information Referral Processed Referral: Pending Pulmonolog y Referral Information Referral Processed Referral: Pending Psychiatry Referral Information Referral Initiated Referral: Pending Respirator y Services Referral Information Referral Initiated Referral: Pending Ophthalmology Referral Information Referral Initiated Referral: [facility] WPtel: [address] [place] [address] [employer] placed a call out to the patient to notify her that it has been recommended that she be seen by a urologist. Patient agreed to be seen, does not have a provider of choice and no transportation issues. [employer] faxed referral and clinical notes to [facility] in [place], [place] near the patient's home. Patient to [...] seen and prefers a provider in the [place] or [place] area. [employer] placed a call out to everyone listed in the area and the only location that was able to accept the patient's insurance was [facility] [address] [place] [address] and spoke with Maylin. Maylin asked that the patient's referral, face sheet and visit notes be faxed to . [employer] faxed over requested documents. Patient appointment confirmation letter generated and mailed to her home address. Patient to call to schedule an appointment. Processed Referral: [facility] WPtel: [address] [place] [address] Patient notified that it has been advised that she be seen by Neurology. Patient agreed to be seen and prefers to be seen by a provider in the [place], [place] area. Patient denies any concerns with transportation, and prefers to schedule her own appointment. [employer] [place] a call out to [place] [...]
--- OUTSIDE RECORDS SUMMARY | 2024-01-03 23:28 | XMS_ITS | CCD ---
Author Name Leena Culver NP Address [address] [place] [address] [address] [place] [address] Phone Organization [facility] Phone Care Team Providers Care [place] Room Worker Name Role Phone Anna Culver NP Primary Care Provider Unav ailable Unavailable Chronic Care Management Unavaila ble Summary Purpose DataExchange Insurance Providers Payer name Policy type / Coverage type Covered green party ID Effective Begin Date Effective End Date SUKI MAYO [id number] Unknown Unknown Family history Mother Diagnosis Age [...] Unknown Disability 05/31/[address]: 799359263 Has never s moked or chewed tobacco 05/31/[address]: 726341381 Never drinks alco hol 05/31/2018 Has the patient ever used illegal drugs? Unknown Has never used illegal drugs 05/31/2018 DNR Order/ Advanced Directive Unknown Full Code 05/31/2018 Allergies, Adverse Reactions, Alerts Substance Reaction Codes Entered Date Inactivated Date Status OxyContin itch, RxNorm: 599311 01/13/2021 No Inactive Da te Active *No known food allergies Unknown 09/06/2018 No I nactive Date Active Methylprednisolone hives RxNorm: 6902 09/06/2018 No Inac tive Date Active Problems Condition Codes Effective Dates Condition St atus URI (upper respiratory infection) ICD-10 : J06.9 ICD-9: 465.9 09/15/2023 Active Encounter for immunization ICD-10: Z23 ICD-9: V04.81 08/05/2023 Active Hypertensive heart disease w ithout heart failure ICD-10: I11.9 ICD-9: 402.90 12/03/2021 Active Right foot pain ICD-10: M79.671 ICD-9: 729.5 08/05/2023 Active Type 2 diabetes mellitus wit h hyperglycemia, without long-term current use of insulin ICD-10: E11.65 ICD-9: 250.00 08/05/2023 Active Adult BMI 50.0-59.9 kg/sq m ICD-10: Z68. 43 ICD-9: V85.43 05/30/2018 Active Major depression, recurrent ICD-10: F33. 9 [...] S93.409A ICD-9: 845.00 07/31/2022 Inactive Encounter for screening for tobacco use [...] seen ICD-10: UXZ.01 ICD-9: UXZ.01 09/10/2021 Resolved Syncope and collapse ICD-10: R55 ICD-9: [...] toe ICD-10: S90.416A ICD-9: 917.0 02/14/2020 Resolved [place] eye ICD-10: H10.029 ICD-9: 372.03 12/29/2019 [...] Fill Instructions amoxicillin 500 mg tablet RxNorm: 279106 Take 1 Tablet(s) Oral three times a day 023 2022 Inactive Ozempic 1 mg/dose (4 mg/3 mL) subcutaneous pen injector RxNorm: 5884453 INJECT 1 UNITS DOSE SUBCUTANEOUSLY ON TUESDAY OF EACH WEEK 023 2023 Active MED IS ON B/O omeprazole 40 mg capsule,delayed release RxNorm: 361925 Take 1 Capsule(s) Oral HS 023 2022 Inactive Januvia 50 mg tablet RxNorm: 288387 Take 1 Tablet(s) Oral two times a day 023 2023 Inactive famotidine 20 mg tablet RxNorm: 768385 TAKE 1 TABLET BY MOUTH EACH MORNING 023 2023 Active Januvia 25 mg tablet RxNorm: 924623 Take 1 Tablet(s) Oral every day 023 2022 Inactive Ozempic 1 mg/dose (4 mg/3 mL) subcutaneous pen injector RxNorm: 9605841 INJECT 1 UNITS DOSE SUBCUTANEOUSLY ON TUESDAY OF EACH WEEK 023 2022 Inactive cetirizine 10 mg tablet RxNorm: 7942951 TAKE (1) TABLET BY MOUTH DAILY 023 2023 Inactive amoxicillin 500 mg tablet RxNorm: 226016 Take 1 Tablet(s) Oral two times a day 023 2022 Inactive omeprazole 40 mg capsule,delayed release RxNorm: 151480 Take 1 Capsule(s) Oral at bed time 023 2022 Inactive Easy Touch Alcohol Prep Pads RxNorm: 579510 USE EACH MORNING 023 2024 Active montelukast 10 mg tablet RxNorm: 302518 Take 1 Tablet(s) Oral every day 023 2022 Inactive gabapentin 300 mg capsule RxNorm: 436011 Take 1 Capsule(s) Oral three times a day 023 2022 Inactive metformin ER 500 mg 24 hr tablet,extended release RxNorm: 2419679 Take 1 Tablet(s) Oral every day with the evening meal 023 2022 Inactive famotidine 20 mg tablet RxNorm: 815739 Take 1 Tablet(s) Oral every morning 023 2022 Inactive levothyroxine 50 mcg tablet RxNorm: 433226 Take 1 Tablet(s) Oral every day 023 2023 [facility]: Approval Requested hydrochlorothiazide 25 mg tablet RxNorm: 634581 Take 1 Tablet(s) Oral every day 023 2023 Active Msg From [facility]: Approval Requested atorvastatin 20 mg tablet RxNorm: 205288 Take 1 Tablet(s) Oral every night at bedtime 023 2023 Active Macrobid 100 mg capsule RxNorm: 389745 1 Capsule(s) Oral every 12 hours with food 023 2022 Inactive omeprazole 40 mg capsule,delayed release RxNorm: 172153 Take 1 Capsule(s) Oral every night at bedtime 023 2022 Inactive trazodone 50 mg tablet RxNorm: 642272 Administer 1 Tablet(s) Oral every night at bedtime 023 No Stop Date Active cholecalciferol (vitamin D3) 50 mcg (2,000 unit) tablet RxNorm: 679820 Take 1 Tablet(s) Oral every day 023 2023 Active Ozempic 1 mg/dose (4 mg/3 mL) subcutaneous pen injector RxNorm: 1862596 USE 1 UNIT DOSE SUBCUTANEOUSLY ON TUE OF EACH WEEK 023 2022 Inactive lisinopril 2.5 mg tablet RxNorm: 325659 Take 1 Tablet(s) Oral every day 023 2022 [facility] Requested Ozempic 1 mg/dose (4 mg/3 mL) subcutaneous pen injector RxNorm: 5173683 USE 1 UNIT DOSE SUBCUTANEOUSLY ON TUE OF EACH WEEK 023 2022 Inactive omeprazole 40 mg capsule,delayed release RxNorm: 320431 Take 1 Capsule(s) Oral every night at bedtime 023 2022 Inactive gabapentin 300 mg capsule RxNorm: 627582 Take 1 Capsule(s) Oral three times a day 023 2022 Inactive montelukast 10 mg tablet RxNorm: 104905 Take 1 Tablet(s) Oral every day 023 2022 Inactive omeprazole 20 mg capsule,delayed release RxNorm: 882915 Take 1 Capsule(s) Oral every evening 022 2022 Inactive Alcohol Prep Pads RxNorm: 663852 USE EACH MORNING 2021 Inactive E11.42 clotrimazole 1 % topical cream RxNorm: 548074 Apply 1 Application Topical two times a day as needed apply to affected area(s) twice daily until healed 2021 Inactive Victoza 2-Sebastián 0.6 mg/0.1 mL (18 mg/3 mL) subcutaneous pen injector RxNorm: 822233 Inject 0.6-1.8 Milligram(s) Subcutaneous once a week Inject 0.6mg/0.1ml week one, 1.2mg/0.2ml week two, 1.8/0.3ml weekly thereafter 022 2021 Inactive ibuprofen 800 mg tablet RxNorm: 685427 Take 1 Tablet(s) Oral Q8H as needed for pain take with food No Stop Date Active Ozempic 1 mg/dose (4 mg/3 mL) subcutaneous pen injector RxNorm: 3500826 Take 1 Unit Dose Subcutaneous QWeek Tuesday 022 2021 Inactive lisinopril 2.5 mg tablet RxNorm: 700933 Take 1 Tablet(s) Oral every day 022 2021 Inactive lisinopril 2.5 mg tablet RxNorm: 990414 Take 1 Tablet(s) Oral every day 022 2022 Inactive hydrochlorothiazide 25 mg tablet RxNorm: 734179 Take 1 Tablet(s) Oral every day 022 2021 Inactive Ozempic 1 mg/dose (4 mg/3 mL) subcutaneous pen injector RxNorm: 6669588 Take 1 Unit Dose Subcutaneous QWeek 022 2021 Inactive famotidine 20 mg tablet RxNorm: 566163 Take 1 Tablet(s) Oral every morning 2021 Inactive levothyroxine 50 mcg tablet RxNorm: 188290 Take 1 Tablet(s) Oral every day 2021 Inactive atorvastatin 20 mg tablet RxNorm: 120936 Take 1 Tablet(s) Oral every night at bedtime 2021 Inactive Cleocin T 1 % lotion RxNorm: 982599 Take 2 Gram(s) Topical every day 2021 Inactive Cleocin T 1 % lotion RxNorm: 762469 Take 2 Gram(s) Topical every day 022 2021 Inactive Ozempic 1 mg/dose (4 mg/3 mL) subcutaneous pen injector RxNorm: 9985085 Take 1 Unit Dose Subcutaneous QWeek 022 2021 Inactive Ozempic 0.25 mg or 0.5 mg (2 mg/1.5 mL) subcutaneous pen injector RxNorm: 8488404 INJECT 0.5 MGS SUBCUTANEOUSLY EVERY WEEK 2021 Inactive omeprazole 20 mg capsule,delayed release RxNorm: 265088 Take 1 Capsule(s) Oral every evening 2021 Inactive levothyroxine 50 mcg tablet RxNorm: 654315 Take 1 Tablet(s) Oral every day 022 2021 Inactive atorvastatin 20 mg tablet RxNorm: 372798 Take 1 Tablet(s) Oral every night at bedtime 2021 Inactive This refill negates all other refills of this medication lisinopril 2.5 mg tablet RxNorm: 013712 Take 1 Tablet(s) Oral every day 022 2021 Inactive gabapentin 300 mg capsule RxNorm: 840029 Take 1 Capsule(s) Oral three times a day 2021 Inactive montelukast 10 mg tablet RxNorm: 130729 Take 1 Tablet(s) Oral every day 022 2021 Inactive Myrbetriq 50 mg tablet,extended release RxNorm: 6503807 1 Tablet(s) Oral every day No Stop Date Active cholecalciferol (vitamin D3) 50 mcg (2,000 unit) tablet RxNorm: 337458 Take 1 Tablet(s) Oral every day 2022 Inactive Ozempic 0.25 mg or 0.5 mg (2 mg/1.5 mL) subcutaneous pen injector RxNorm: 1423896 inject 0.5 milligrams subcutaneously every week 2021 Inactive Ozempic 0.25 mg or 0.5 mg (2 mg/1.5 mL) subcutaneous pen injector RxNorm: 9120353 Take 0.5 Capsule(s) Injection once a week 2021 Inactive omeprazole 20 mg capsule,delayed release RxNorm: 915263 Take 1 Capsule(s) Oral every evening 2020 Inactive Ozempic 0.25 mg or 0.5 mg (2 mg/1.5 mL) subcutaneous pen injector RxNorm: 8350939 Take 0.25 Milligram(s) Subcutaneous once a week 2021 Inactive Easy Touch Alcohol Prep Pads RxNorm: 035061 USE DIRECTED EACH MORNING 2021 Inactive Probiotic 10 billion cell capsule RxNorm: 5082793 Take 1 Capsule(s) Oral every day 2021 Inactive levothyroxine 50 mcg tablet RxNorm: 862755 Take 1 Tablet(s) Oral every day 2020 Inactive Acid Cell Repairer (famotidine) 20 mg tablet RxNorm: 336527 Take 1 Tablet(s) Oral every morning 2020 Inactive Heartburn Relief (famotidine) 10 mg tablet RxNorm: 312087 Take 1 Tablet(s) Oral QAM 021 2020 Inactive levothyroxine 50 mcg tablet RxNorm: 764733 Take 1 Tablet(s) Oral QD 2020 Inactive Singulair 10 mg tablet RxNorm: 205702 TAKE (1) TABLET BY MOUTH DAILY 2020 Inactive metformin 1,000 mg tablet RxNorm: 826161 1 Tablet(s) Oral two times a day 2021 Inactive lisinopril 2.5 mg tablet RxNorm: 597321 Take 1 Tablet(s) Oral every day 2020 Inactive hydrochlorothiazide 25 mg tablet RxNorm: 709925 Take 1 Tablet(s) Oral every day 2020 Inactive ondansetron 4 mg disintegrating tablet RxNorm: 929121 1 Tablet(s) Oral two times a day 2020 Inactive Sudafed 12 Hour 120 mg tablet,extended release RxNorm: 5023766 TAKE 1 TABLET BY MOUTH EVERY 12 HOURS NEEDED 2021 Inactive Heartburn Relief (famotidine) 10 mg tablet RxNorm: 241672 Take 1 Tablet(s) Oral every morning 021 2020 Inactive omeprazole 20 mg capsule,delayed release RxNorm: 434000 1 Capsule(s) Oral every evening 021 2020 Inactive sertraline 100 mg tablet RxNorm: 447744 2 Tablet(s) Oral every day 021 2020 Inactive levothyroxine 50 mcg tablet RxNorm: 210413 TAKE (1) TABLET BY MOUTH DAILY 021 2020 Inactive metformin 500 mg tablet RxNorm: 323499 1 Tablet(s) Oral two times a day take with 500mg to equal 1000mg 021 2020 Inactive gabapentin 300 mg capsule RxNorm: 425194 TAKE 1 CAPSULE BY MOUTH THREE TIMES A DAY 021 2020 Inactive lisinopril 2.5 mg tablet RxNorm: 337291 TAKE 1 TABLET BY MOUTH DAILY 021 2020 Inactive gabapentin 300 mg capsule RxNorm: 810752 TAKE 1 CAPSULE BY MOUTH THREE TIMES A DAY 021 2020 Inactive Singulair 10 mg tablet RxNorm: 674464 TAKE (1) TABLET BY MOUTH DAILY 021 2020 Inactive metformin 1,000 mg tablet RxNorm: 521475 1 Tablet(s) Oral two times a day 021 2020 Inactive atorvastatin 40 mg tablet RxNorm: 697825 1 Tablet(s) Oral every day 021 2020 Inactive omeprazole 20 mg capsule,delayed release RxNorm: 960904 1 Capsule(s) Oral every evening 021 2020 Inactive famotidine 10 mg tablet RxNorm: 412887 1 Tablet(s) Oral every morning 021 2020 Inactive Alcohol Prep Pads RxNorm: 987327 USE EACH MORNING 021 2020 Inactive omeprazole 20 mg capsule,delayed release RxNorm: 362069 1 Capsule(s) Oral two times a day 021 2021 Inactive omeprazole 20 mg capsule,delayed release RxNorm: 568175 TAKE 1 CAPSULE BY MOUTH EVERY DAY 2021 Inactive Macrobid 100 mg capsule RxNorm: 358857 1 Capsule(s) Oral every 12 hours with food 2020 Inactive omeprazole 20 mg capsule,delayed release RxNorm: 229342 1 Capsule(s) Oral two times a day 2021 Inactive metformin 1,000 mg tablet RxNorm: 569772 1 Tablet(s) Oral two times a day 2020 Inactive start on September 11, 2020 metformin 500 mg tablet RxNorm: 497933 1 Tablet(s) Oral two times a day take with 500mg to equal 1000mg 2019 Inactive gabapentin 300 mg capsule RxNorm: 136466 TAKE 1 CAPSULE BY MOUTH THREE TIMES DAILY 2020 Inactive cetirizine 10 mg tablet RxNorm: 2028192 TAKE (1) TABLET BY MOUTH DAILY 020 2020 Inactive metformin 500 mg tablet RxNorm: 249349 1 Tablet(s) Oral two times a day 2019 Inactive loperamide 2 mg tablet RxNorm: 423741 1 Tablet(s) Oral as needed take one tablet after each loose stool, maximum of 8 tablets in 24 hours 2021 Inactive Sudafed 12 Hour 120 mg tablet,extended release RxNorm: 9853651 TAKE 1 TABLET BY MOUTH EVERY 12 HOURS NEEDED 020 2019 Inactive hydrochlorothiazide 25 mg tablet RxNorm: 465615 TAKE (1) TABLET BY MOUTH EVERY DAY 2019 Inactive omeprazole 20 mg capsule,delayed release RxNorm: 622735 TAKE 1 CAPSULE BY MOUTH EVERY DAY 2020 Inactive metformin 500 mg tablet RxNorm: 596657 1 Tablet(s) Oral every day 2019 Inactive True Metrix Glucose Test Strip RxNorm: 1 Test Strips Miscellaneous two times a day as needed No Stop Date Active metformin 500 mg tablet RxNorm: 139503 1 Tablet(s) Oral every day 2019 Inactive diclofenac sodium 75 mg tablet,delayed release RxNorm: 377530 1 Tablet(s) PO BID 2021 Inactive This refill negates all other refills of this medication Sudafed 12 Hour 120 mg tablet,extended release RxNorm: 3819108 TAKE 1 TABLET BY MOUTH EVERY 12 HOURS NEEDED 020 2019 Inactive True Metrix Glucose Test Strip RxNorm: 1 Test Strips Miscellaneous every morning 020 2019 Inactive 100/container True Metrix Glucose Test Strip RxNorm: 1 Test Strips Miscellaneous QAM 2019 Inactive 100/container loperamide 2 mg tablet RxNorm: 358332 1 Tablet(s) Oral as needed take one tablet after each loose stool, maximum of 8 tablets in 24 hours 020 2019 Inactive cetirizine 10 mg tablet RxNorm: 7002353 1 Tablet(s) PO daily 2019 Inactive loperamide 2 mg tablet RxNorm: 885874 1 Tablet(s) Oral as needed take one tablet after each loose stool, maximum of 8 tablets in 24 hours 020 2019 Inactive quetiapine 100 mg tablet RxNorm: 485672 1 Tablet(s) Oral every night at bedtime 2019 Inactive levothyroxine 50 mcg tablet RxNorm: 799127 1 Tablet(s) PO daily 2020 Inactive gabapentin 300 mg capsule RxNorm: 365657 1 Capsule(s) PO TID 2019 Inactive levothyroxine 50 mcg tablet RxNorm: 056753 1 Tablet(s) PO daily 2019 Inactive lisinopril 2.5 mg tablet RxNorm: 744239 1 Tablet(s) PO daily 020 2020 Inactive gabapentin 300 mg capsule RxNorm: 239529 1 Capsule(s) PO TID 2019 Inactive cetirizine 10 mg tablet RxNorm: 6703783 1 Tablet(s) PO daily 2019 Inactive Singulair 10 mg tablet RxNorm: 536832 1 Tablet(s) PO daily 2020 Inactive gentamicin 0.3 % eye drops RxNorm: 157904 1 Drop(s) ophthalmic (eye) four times a day 2019 Inactive gentamicin 0.3 % eye drops RxNorm: 681380 1 Drop(s) ophthalmic (eye) four times a day 2019 Inactive gentamicin 0.3 % eye drops RxNorm: 214363 1 Drop(s) ophthalmic (eye) four times a day 020 2019 Inactive hydrochlorothiazide 25 mg tablet RxNorm: 779439 1 Tablet(s) Oral every day 2019 Inactive Sudafed 12 Hour 120 mg tablet,extended release RxNorm: 9930096 TAKE (1) TABLET BY MOUTH EVERY 12 HOURS NEEDED 2019 Inactive loperamide 2 mg tablet RxNorm: 327277 1 Tablet(s) Oral as needed take one tablet after each loose stool, maximum of 8 tablets in 24 hours 020 2019 Inactive loperamide 2 mg tablet RxNorm: 375397 1 Tablet(s) Oral as needed take one tablet after each loose stool, maximum of 8 tablets in 24 hours 020 2019 Inactive atorvastatin 40 mg tablet RxNorm: 190251 1 Tablet(s) Oral every day 2020 Inactive quetiapine 100 mg tablet RxNorm: 508198 1 Tablet(s) Oral every night at bedtime 2019 Inactive sertraline 100 mg tablet RxNorm: 569718 1 Tablet(s) Oral 2019 Inactive omeprazole 20 mg capsule,delayed release RxNorm: 831106 1 Capsule(s) Oral every day 020 2019 Inactive amoxicillin 250 mg capsule RxNorm: 218899 1 Capsule(s) Oral three times a day 2019 Inactive multivitamin with iron-mineral tablet RxNorm: 1 Tablet(s) Oral every day 020 2021 Inactive cetirizine 10 mg tablet RxNorm: 9703388 1 Tablet(s) PO daily 2019 Inactive This refill negates all other refills of this medication. Please do not auto refill Singulair 10 mg tablet RxNorm: 830257 1 Tablet(s) PO daily 020 2019 Inactive This refill negates all other refills of this medication gabapentin 300 mg capsule RxNorm: 880740 1 Capsule(s) PO TID 2019 Inactive lisinopril 2.5 mg tablet RxNorm: 680305 1 Tablet(s) PO daily 2019 Inactive levothyroxine 50 mcg tablet RxNorm: 541162 1 Tablet(s) PO daily 2019 Inactive This refill negates all other refills of this medication hydrochlorothiazide 25 mg tablet RxNorm: 112178 1 Tablet(s) Oral every day 2019 Inactive fenugreek seed extract 500 mg capsule RxNorm: 1 Capsule(s) Oral three times a day 2021 Inactive Alcohol Prep Pads RxNorm: 792728 1 Patch TOP QAM 2020 Inactive loperamide 2 mg tablet RxNorm: 006655 1 Tablet(s) Oral as needed take one [...] 2019 Inactive hydrochlorothiazide 25 mg tablet RxNorm: 329926 1 Tablet(s) Oral every day 2019 Inactive Sudafed 12 Hour 120 mg tablet,extended release RxNorm: 0983299 1 Tablet(s) Oral every 12 hours as needed 019 2018 Inactive omeprazole 20 mg capsule,delayed release RxNorm: 293450 1 Capsule(s) Oral every day 019 2019 Inactive Sudafed 12 Hour 120 mg tablet,extended release RxNorm: 0367243 1 Tablet(s) Oral every 12 hours as needed 019 2018 Inactive pantoprazole 40 mg tablet,delayed release RxNorm: 145348 1 Tablet(s) Oral every day 019 2018 Inactive discontinue any other H2Blkr. and PPI albuterol sulfate 2.5 mg/3 mL (0.083 %) solution for nebulization RxNorm: 295538 1 Vial Inhalation every four hours as needed as needed for dyspnea 2019 Inactive 60/box. This refill negates all other refills of this medication. Please do not fill early. Please do not auto refill. Symbicort 160 mcg-4.5 mcg/actuation HFA aerosol inhaler RxNorm: 8785395 2 Puff(s) INH BID No Stop Date Active Alcohol Prep Pads RxNorm: 978746 1 Patch TOP QAM 2019 Inactive Ventolin HFA 90 mcg/actuation aerosol inhaler RxNorm: 536001 2 Puff(s) INH QID 2019 Inactive Please do not fill early. Please do not auto refill. This refill negates all other refills of this medication True Metrix Glucose Test Strip RxNorm: 1 Test Strips Miscellaneous QAM 019 2019 Inactive 100/container atorvastatin 40 mg tablet RxNorm: 620533 1 Tablet(s) Oral every day 019 2019 Inactive buspirone 7.5 mg tablet RxNorm: 711667 1 Tablet(s) PO BID 019 2020 Inactive This refill negates all other refills of this medication hydrochlorothiazide 12.5 mg tablet RxNorm: 409566 1 Tablet(s) PO QAM 019 2019 Inactive levmetamfetamine 50 mg nasal inhaler RxNorm: 1 Unit(s) NASAL Q3-4H Do not use more than every 3 hours or 8 times/24hours 019 2021 Inactive Please do not auto refill. This refill negates all other refills of this medication Ventolin HFA 90 mcg/actuation aerosol inhaler RxNorm: 688570 2 Puff(s) INH QID 019 2018 Inactive Please do not fill early. Please do not auto refill. This refill negates all other refills of this medication Singulair 10 mg tablet RxNorm: 803378 1 Tablet(s) PO daily 019 2019 Inactive This refill negates all other refills of this medication cetirizine 10 mg tablet RxNorm: 4260017 1 Tablet(s) PO daily 019 2019 Inactive This refill negates all other refills of this medication. Please do not auto refill levothyroxine 50 mcg tablet RxNorm: 253562 1 Tablet(s) PO daily 019 2019 Inactive This refill negates all other refills of this medication diclofenac sodium 75 mg tablet,delayed release RxNorm: 332533 1 Tablet(s) PO BID 019 2019 Inactive This refill negates all other refills of this medication ranitidine 150 mg tablet RxNorm: 498639 1 Tablet(s) PO BID 019 2018 Inactive This refill negates all other refills of this medication Calcium 600-D3 Plus (mag-zinc) 600 mg calcium-800 unit-50 mg tablet RxNorm: 1 Tablet(s) PO daily take an additonal tablet for itching. 2018 Inactive This refill negates all other refills of this medication albuterol sulfate 2.5 mg/3 mL (0.083 %) solution for nebulization RxNorm: 547011 1 Vial INH QID 019 2018 Inactive 60/box. This refill negates all other refills of this medication. Please do not fill early. Please do not auto refill. lisinopril 2.5 mg tablet RxNorm: 342521 1 Tablet(s) PO daily 019 2019 Inactive gabapentin 300 mg capsule RxNorm: 400241 1 Capsule(s) PO TID 019 2019 Inactive atorvastatin 20 mg tablet RxNorm: 558430 1 Tablet(s) PO QHS 019 2018 Inactive This refill negates all other refills of this medication TRUEplus Lancets 30 gauge RxNorm: 1 Lancets Miscellaneous QAM 019 2018 Inactive 100/box gabapentin 300 mg capsule RxNorm: 626596 1 Capsule(s) PO TID 019 2018 Inactive Flintstones Complete (iron) 18 mg iron chewable tablet RxNorm: 1 Tablet(s) PO daily 019 2021 Inactive This refill negates all other refills of this medication gabapentin 300 mg capsule RxNorm: 404872 1 Capsule(s) PO TID as needed 019 2018 Inactive True Metrix Glucose Test Strip RxNorm: 1 Test Strips Miscellaneous QAM 2018 Inactive 100/container Alcohol Prep Pads RxNorm: 746443 1 Patch TOP QAM 019 2018 Inactive TRUEplus Lancets 30 gauge RxNorm: 1 Lancets Miscellaneous QAM 019 2018 Inactive 100/box lisinopril 2.5 mg tablet RxNorm: 044254 1 Tablet(s) PO daily 019 2018 Inactive ranitidine 150 mg tablet RxNorm: 822221 1 Tablet(s) PO BID 019 2018 Inactive This refill negates all other refills of this medication albuterol sulfate 2.5 mg/3 mL (0.083 %) solution for nebulization RxNorm: 527525 1 Vial INH QID 019 2018 Inactive [...] this medication gabapentin 300 mg capsule RxNorm: 807338 1 Capsule(s) PO TID as needed 019 2018 Inactive atorvastatin 20 mg tablet RxNorm: 413198 1 Tablet(s) PO QHS 019 2018 Inactive This refill negates all other refills of this medication trazodone 50 mg tablet RxNorm: 205651 1 Tablet(s) PO QHS 019 2018 Inactive This refill negates all other refills of this medication Ventolin HFA 90 mcg/actuation aerosol inhaler RxNorm: 160793 2 Puff(s) INH QID 019 2018 Inactive Please do not fill early. Please do not auto refill. This refill negates all other refills of this medication Calcium 600-D3 Plus 600 mg calcium-800 unit-50 mg tablet RxNorm: 1 Tablet(s) PO daily take an additonal tablet for itching. 019 2018 Inactive This refill negates all other refills of this medication Singulair 10 mg tablet RxNorm: 157515 1 Tablet(s) PO daily 019 2018 Inactive This refill negates all other refills of this medication buspirone 7.5 mg tablet RxNorm: 118991 1 Tablet(s) PO BID 019 2018 Inactive This refill negates all other refills of this medication diclofenac sodium 75 mg tablet,delayed release RxNorm: 690254 1 Tablet(s) PO BID 019 2018 Inactive This refill negates all other refills of this medication hydrochlorothiazide 12.5 mg tablet RxNorm: 050750 1 Tablet(s) PO QAM 019 2018 Inactive metoprolol succinate ER 50 mg tablet,extended release 24 hr RxNorm: 810610 1 Tablet(s) PO daily 019 2018 Inactive This refill negates all other refills of this medication levothyroxine 50 mcg tablet RxNorm: 979271 1 Tablet(s) PO daily 019 2018 Inactive This refill negates all other refills of this medication cetirizine 10 mg tablet RxNorm: 1531524 1 Tablet(s) PO daily 019 2018 Inactive This refill negates all other refills of this medication. Please do not auto refill Flintstones Complete (iron) 18 mg iron chewable tablet RxNorm: 1 Tablet(s) PO daily 019 2018 Inactive This refill negates all other refills of this medication buspirone 7.5 mg tablet RxNorm: 885742 1 Tablet(s) PO BID 2018 Inactive cetirizine 10 mg tablet RxNorm: 8102400 1 Tablet(s) PO daily 2018 Inactive Guaiasorb DM 10 mg-100 mg/5 mL oral liquid RxNorm: 861112 10 Milliliter(s) PO As needed every 4 hr 2018 Inactive Vicks Vaporub 4.7 %-1.2 %-2.6 % topical ointment RxNorm: 9008989 1 Application TOP TID 2018 Inactive levmetamfetamine 50 mg nasal inhaler RxNorm: 1 Unit(s) NASAL Q3-4H 2017 Inactive sertraline 50 mg tablet RxNorm: 747534 1 Tablet(s) PO daily 2018 Inactive Please note dose trazodone 50 mg tablet RxNorm: 159483 1 Tablet(s) PO QHS 018 2018 Inactive sertraline 50 mg tablet RxNorm: 426424 1 Tablet(s) PO daily 2017 Inactive amoxicillin 500 mg tablet RxNorm: 308821 1 Tablet(s) PO Q12H 2017 Inactive albuterol sulfate 2.5 mg/3 mL (0.083 %) solution for nebulization RxNorm: 850742 1 Vial INH QID 2018 Inactive 60/box. Please do not fill early. Please do not auto refill. Prozac 10 mg capsule RxNorm: 336370 1 Capsule(s) PO daily 018 2017 Inactive buspirone 7.5 mg tablet RxNorm: 656526 1 Tablet(s) PO BID 018 2018 Inactive gabapentin 300 mg capsule RxNorm: 768993 1 Capsule(s) PO TID as needed 2018 Inactive hydrochlorothiazide 12.5 mg tablet RxNorm: 888066 1 Tablet(s) PO QAM 018 2018 Inactive ranitidine 150 mg tablet RxNorm: 642340 1 Tablet(s) PO BID 018 2018 Inactive Macrobid 100 mg capsule RxNorm: 399414 1 Capsule(s) PO Q12H 018 2017 Inactive Singulair 10 mg tablet RxNorm: 740992 1 Tablet(s) PO daily 018 2018 Inactive Ventolin HFA 90 mcg/actuation aerosol inhaler RxNorm: 7053880 2 Puff(s) INH QID 018 2018 Inactive Singulair 10 mg tablet RxNorm: 686415 1 Tablet(s) PO daily 018 2017 Inactive buspirone 7.5 mg tablet RxNorm: 380773 1 Tablet(s) PO BID 018 2017 Inactive Prozac 10 mg capsule RxNorm: 709594 1 Capsule(s) PO daily 018 2017 Inactive diclofenac sodium 75 mg tablet,delayed release RxNorm: 794597 1 Tablet(s) PO BID 018 2017 Inactive lisinopril 2.5 mg tablet RxNorm: 154346 1 Tablet(s) PO daily 018 2017 Inactive Neilmed Pediatric Sinus Rinse Refill packet RxNorm: 1 Unit Dose NASAL PRN 018 2021 Inactive metoprolol succinate ER 50 mg tablet,extended release 24 hr RxNorm: 699370 1 Tablet(s) PO daily 018 2017 Inactive levothyroxine 50 mcg tablet RxNorm: 835450 1 Tablet(s) PO daily 018 2017 Inactive TRUEplus Lancets 30 gauge RxNorm: 1 Lancets Miscellaneous QAM 018 2017 Inactive 100/box Ventolin HFA 90 mcg/actuation aerosol inhaler RxNorm: 892251 2 Puff(s) INH QID 018 2017 Inactive Aleve 220 mg capsule RxNorm: 0147162 1 Capsule(s) PO BID 018 2018 Inactive ranitidine 150 mg tablet RxNorm: 191066 1 Tablet(s) PO BID 018 2017 Inactive gabapentin 300 mg capsule RxNorm: 156344 1 Capsule(s) PO TID as needed 018 2017 Inactive atorvastatin 20 mg tablet RxNorm: 534250 1 Tablet(s) PO QHS 018 2017 Inactive True Metrix Glucose Test Strip RxNorm: 1 Test Strips [facility]18 2017 Inactive 50/container Calcium 600-D3 Plus 600 mg calcium-800 unit-50 mg tablet RxNorm: 1 Tablet(s) PO daily take an additonal tablet for itching. 018 2017 Inactive hydrochlorothiazide 12.5 mg tablet RxNorm: 108504 1 Tablet(s) PO QAM 018 2017 Inactive Flintstones Complete (iron) 18 mg iron chewable tablet RxNorm: 1 Tablet(s) PO daily 018 2017 Inactive True Metrix Glucose Meter RxNorm: miscellaneous 019 2018 Inactive sertraline 50 mg tablet RxNorm: 314748 1 Tablet(s) PO daily 020 2019 Inactive loperamide 2 mg tablet RxNorm: 366090 oral 019 2018 Inactive d-mannose oral powder RxNorm: PO 018 2021 Inactive Symbicort 160 mcg-4.5 mcg/actuation HFA aerosol inhaler RxNorm: 7803737 2 Puff(s) INH BID 019 2018 Inactive Medication Administered No Medication Administered data Procedures Procedure Codes Date Patient Health Questionnaire CPT-4: DPHQ Electrocardiogram CPT-4: 55889 06/24/2023 Urinalysis, dip stick CPT-4: 30866 05/04/2023 Kinmundy Fany Assessment CPT-4: DSWA 01/02 Fall Risk Assessment CPT-4: DFRA 01/27/2023 Hypertension CPT-4: HTN 01/27/2023 Patient Health Questionnaire CPT-4: DPHQ Pain Screening CPT-4: PAS 2022 Tobacco Assessment/Screening CPT-4: TCA Hypertension CPT-4: HTN 08/17/2022 Kinmundy Fany Assessment CPT-4: DSWA 04/02 Patient Health [...] CPT-4: VACP Fall Risk Assessment SNOMED CT: 98021062 4 CPT-4: DFRA 01/13/2021 Kinmundy Fany Assessment CPT-4: DSWA 12/01 Urinalysis, dip stick CPT-4: 66636 09/24/2020 Patient Health Questionnaire CPT-4: DPHQ Electrocardiogram CPT-4: 25781 05/14/2020 Tobacco Assessment/Screening CPT-4: TCA Fall Risk Assessment SNOMED CT: 67264178 4 CPT-4: DFRA 01/01/2020 Functional Assessment CPT-4: DFA 01/01/2020 Kinmundy Fany Assessment CPT-4: DSWA 11/04 Patient Health Questionnaire CPT-4: DPHQ Kinmundy Fany Assessment CPT-4: DSWA 10/03 Hypertension CPT-4: HTN 10/17/2019 Fall Risk Assessment SNOMED CT: 46312020 4 CPT-4: DFRA 09/19/2019 Functional Assessment CPT-4: DFA 09/19/2019 Urinalysis, dip stick CPT-4: 17374 06/21/2019 Tobacco Assessment/Screening CPT-4: TCA Patient Health Questionnaire CPT-4: DPHQ AHA/REBECCA Classification Assessment CPT-4: DAHA 04/25/2019 Controlled Substance Report CPT-4: CTRSU 04/03 Urinalysis, dip stick CPT-4: 20274 03/28/2019 Urinalysis, dip stick CPT-4: 50640 03/28/2019 T6Z-Fpynvaudjwsmjbl CPT-4: 06565 Unknown O4H-Hjhksohudfgzpcx CPT-4: 79807 Unknown F0Z-Yfpgirrhsocuvwq CPT-4: 18830 Unknown S9I-Kzzushosjpqfrtz CPT-4: 85950 Unknown D5F-Hzrzsbyozejakfw CPT-4: 90654 Unknown N2G-Szbcejdtkhhajfb CPT-4: 70977 Unknown R1Z-Rsacesuohgpzjzr CPT-4: 35798 Unknown C4O-Pzlztpjnqjmuylz CPT-4: 24555 Unknown E6Q-Ucvsrhondyydvis CPT-4: 18341 Unknown D8K-Rufopbhlwyhjzwm CPT-4: 15024 Unknown M5K-Goohrwvbwtyqlba CPT-4: 49586 Unknown B2Z-Mdbjohoqzhoelvm CPT-4: 55525 Unknown Gynecology Referral SNOMED CT: 225601361 CPT-4: R14 Unknown Reason For Visit No Reason For Visit data Plan of Care Planned Activity Notes Codes Status Date Patient Education: Patient Medication Summary Completed 09/15/2023 Appointment: Anna Culver WPtel: [phone] [address]410 08/05/2023 Appointment: Anna Culver WPtel: [phone] [place] [address] E410 06/24/2023 Appointment: Anna Culver WPtel: [address] [place] [address] E410 05/04/2023 Appointment: Anna Culver WPtel: [address] [place] [address] E410 01/27/2023 Appointment: Anna Culver WPtel: [address] [place] [address] E410 11/23/2022 Appointment: Anna Culver WPtel: [address] [place] [address] E410 2022 Appointment: Anna Culver WPtel: [address] [place] [address] E410 08/17/2022 Appointment: Anna Culver WPtel: [address] [place] [address] E410 06/23/2022 Appointment: Chivo Bishop WPtel: [address] [place] [address] E410 04/19/2022 Appointment: Chivo Bishop WPtel: [address] [place] [address] E410 02/11/2022 Appointment: Mikey Nair WPtel: [facility] [id number] [place] E410 12/03/2021 Appointment: Chivo Bishop WPtel: [address] [place] [address] E410 11/02/2021 Appointment: Chivo Bishop WPtel: [address] [place] [address] E410 10/07/2021 Appointment: Chivo Bishop WPtel: [address] [place] [address] ETV 09/10/2021 Appointment: Chivo Bishop WPtel: [address] [place] [address] ETV 08/13/2021 Appointment: Chivo Bishop WPtel: [address] [place] [address] ETV 07/06/2021 Appointment: Chivo Bishop WPtel: [address] [place] [address] PHTV 06/10/2021 Appointment: Anna Culver WPtel: [address] [place] [address] ETV 06/02/2021 Appointment: Chivo Bishop WPtel: [address] [place] [address] ETV 05/20/2021 Appointment: Anna Culver WPtel: [address] [place] [address] ETV 04/28/2021 Appointment: Chivo Bishop WPtel: [address] [place] [address] ETV 04/15/2021 Appointment: Anna Culver WPtel: [address] [place] [address] E410 04/01/2021 Appointment: Anna Culver WPtel: [address] [place] [address] ETV 03/24/2021 Appointment: Anna Culver WPtel: [address] [place] [address] ETV 03/13/2021 Appointment: Anna Culver WPtel: [address] [place] [address] E410 02/11/2021 Appointment: Chivo Bishop WPtel: [address] [place] [address] E410 01/29/2021 Appointment: Anna Culver WPtel: [address] [place] [address] ETV 01/13/2021 Appointment: Anna Culver WPtel: [address] [place] [address] E410 12/17/2020 Appointment: Chivo Bishop WPtel: [address] [place] [address] ETV 11/28/2020 Appointment: Anna Culver WPtel: [address] [place] [address] ETV 11/24/2020 Appointment: Anna Culver WPtel: [address] [place] [address] E410 10/29/2020 Appointment: Anna Culver WPtel: [address] [place] [address] E410 09/24/2020 Appointment: Anna Culver WPtel: [address] [place] [address] ETV 08/26/2020 Appointment: Anna Culver WPtel: [address] [place] [address] [place] ETV 08/19/2020 Appointment: Anna Culver WPtel: [address] [place] [address] ETV 07/22/2020 Appointment: Anna Culver WPtel: [address] [place] [address] ETV 07/08/2020 Appointment: Gianna Birmingham: [address] [facility] 100 [id number] [place] ECHO 07/02/2020 Appointment: Anna Culver WPtel: [phone] E452 06/11/2020 Appointment: Anna Culver WPtel: [phone] [place] [address] E452 05/14/2020 Appointment: Anna Culver WPtel: [phone] [place] [address] E452 04/17/2020 Appointment: Anna Culver WPtel: [address] [place] [address] E452 03/21/2020 Appointment: Anna Culver WPtel: [address] [place] [address] E452 02/14/2020 Appointment: Anna Culver WPtel: [address] [place] [address] E452 01/24/2020 Appointment: Anna Culver WPtel: [address] [place] [address] E452 01/01/2020 Appointment: Anna Culver WPtel: [address] [place] [address] E452 11/28/2019 Appointment: Anna Culver WPtel: [address] [place] [address] E452 10/17/2019 Appointment: Anna Culver WPtel: [phone] [place] [address] E452 09/19/2019 Appointment: Sudha Hernadez WPtel: [address] [facility] [id number] E452 07/04/2019 Appointment: Sudha Hernadez WPtel: 190 [facility] [id number] E452 06/21/2019 Appointment: Charlene Oropeza WPtel: [address] [facility] b [id number] E452 05/24/2019 Appointment: Mallory Delgado E452 04/27/2019 Appointment: Charlene Oropeza WPtel: [address] [facility] b [id number] E452 04/25/2019 Appointment: Rasta Palafox WPtel: [address] [facility] b [id number] E452 03/28/2019 Appointment: Rasta Palafox WPtel: [address] [facility] [id number] E452 02/14/2019 Appointment: Rasta Palafox WPtel: [address] [facility] b [id number] E452 01/31/2019 Appointment: Rasta Palafox WPtel: [address] [facility] b [id number] E420 12/27/2018 Referral: Pending Gynecology Referral Information Referral Processed Referral: Pending Pulmonolog y Referral Information Referral Processed Referral: Pending Psychiatry Referral Information Referral Initiated Referral: Pending Respirator y Services Referral Information Referral Initiated Referral: Pending Ophthalmology Referral Information Referral Initiated Referral: [facility] WPtel: [facility] [address] Pest Control Specialist placed a call out to the patient to notify her that it has been recommended that she be seen by a urologist. Patient agreed to be seen, does not have a provider of choice and no transportation issues. Pest Control Specialist faxed referral and clinical notes to [facility] in [place], [place] near the patient's home. Patient to [...] seen and prefers a provider in the [place] or [place] area. Pest Control Specialist placed a call out to everyone listed in the area and the only location that was able to accept the patient's insurance was [facility] [address] [place] [address] and spoke with Maylin. Maylin asked that the patient's referral, face sheet and visit notes be faxed to . Pest Control Specialist faxed over requested documents. Patient appointment confirmation letter generated and mailed to her home address. Patient to call to schedule an appointment. Processed Referral: [facility] Neurolog y WPtel: [address] [place] [address] Patient notified that it has been advised that she be seen by Neurology. Patient agreed to be seen and prefers to be seen by a provider in the [place], [place] area. Patient denies any concerns with transportation, and prefers to schedule her own appointment. Pest Control Specialist placed a call out to [facility] and spoke with Neeraj P: who confirmed that their office is able to accept new patients and the patient's insurance. After confirming the providers fax number, copy writer faxed over the patient's referral, [...]
--- OUTSIDE RECORDS SUMMARY | 2024-01-03 23:28 | XMS_ITS | CCD ---
Author Name Leena Culver NP Address [address] [place] [address] [place] [id number] Phone Organization [facility] Phone Care Team Providers Care Switchboard Wirer Name Role Phone Anna Culver NP Primary Care Provider Unav ailable Unavailable Chronic Care Management Unavaila ble Summary Purpose DataExchange Insurance Providers Payer name Policy type / Coverage type Covered alliance party ID Effective Begin Date Effective End Date SUKI MAYO [id number] Unknown Unknown Family history Mother Diagnosis Age [...] Unknown Disability 05/31/[address]: 203173903 Has never s moked or chewed tobacco 05/31/[address]: 887958715 Never drinks alco hol 05/31/2018 Has the patient ever used illegal drugs? 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 ICD-10: Z79.899 ICD-9: V58.69 04/25/2019 Inactive Type 2 diabetes mellitus wit hout complications ICD-10: E11.9 ICD-9: 250.00 10/03/2018 Inactive Wheezing ICD-10: R06.2 ICD-9: 786.07 08/08/2018 Inactive Abnormal urine finding ICD-10: R82.90 ICD-9: 791.9 09/24/2020 Resolved Abrasion of toe ICD-10: S90.416A ICD-9: 917.0 02/14/2020 Resolved [place] eye ICD-10: H10.029 ICD-9: 372.03 12/29/2019 Resolved [...] Date Stop Date Status Fill Instructions Januvia 50 mg tablet RxNorm: 259397 Take 1 Tablet(s) Oral two times a day 023 2023 Inactive famotidine 20 mg tablet RxNorm: 829589 TAKE 1 TABLET BY MOUTH EACH MORNING 023 2023 Active Januvia 25 mg tablet RxNorm: 563245 Take 1 Tablet(s) Oral every day 023 2022 Inactive Ozempic 1 mg/dose (4 mg/3 mL) subcutaneous pen injector RxNorm: 2503558 INJECT 1 UNITS DOSE SUBCUTANEOUSLY ON TUESDAY OF EACH WEEK 023 2022 Inactive cetirizine 10 mg tablet RxNorm: 3034654 TAKE (1) TABLET BY MOUTH DAILY 023 2023 Inactive amoxicillin 500 mg tablet RxNorm: 585446 Take 1 Tablet(s) Oral two times a day 023 2022 Inactive omeprazole 40 mg capsule,delayed release RxNorm: 125883 Take 1 Capsule(s) Oral at bed time 023 2022 Inactive Easy Touch Alcohol Prep Pads RxNorm: 917647 USE EACH MORNING 023 2024 Active montelukast 10 mg tablet RxNorm: 772953 Take 1 Tablet(s) Oral every day 023 2022 Inactive gabapentin 300 mg capsule RxNorm: 392689 Take 1 Capsule(s) Oral three times a day 023 2022 Inactive metformin ER 500 mg 24 hr tablet,extended release RxNorm: 3730515 Take 1 Tablet(s) Oral every day with the evening meal 023 2022 Inactive famotidine 20 mg tablet RxNorm: 476954 Take 1 Tablet(s) Oral every morning 023 2022 Inactive levothyroxine 50 mcg tablet RxNorm: 666758 Take 1 Tablet(s) Oral every day 023 2023 Active Msg From [facility]: Dr. Zapata Requested hydrochlorothiazide 25 mg tablet RxNorm: 307369 Take 1 Tablet(s) Oral every day 023 2023 Active Msg From [facility]: Approval Requested atorvastatin 20 mg tablet RxNorm: 821608 Take 1 Tablet(s) Oral every night at bedtime 023 2023 Active Macrobid 100 mg capsule RxNorm: 014676 1 Capsule(s) Oral every 12 hours with food 023 2022 Inactive omeprazole 40 mg capsule,delayed release RxNorm: 20021111 Take 1 Capsule(s) Oral every night at bedtime 023 2022 Inactive trazodone 50 mg tablet RxNorm: 925378 Administer 1 Tablet(s) Oral every night at bedtime 023 No Stop Date Active cholecalciferol (vitamin D3) 50 mcg (2,000 unit) tablet RxNorm: 737652 Take 1 Tablet(s) Oral every day 023 2023 Active Ozempic 1 mg/dose (4 mg/3 mL) subcutaneous pen injector RxNorm: 3172055 USE 1 UNIT DOSE SUBCUTANEOUSLY ON TUE OF EACH WEEK 023 2022 Inactive lisinopril 2.5 mg tablet RxNorm: 377576 Take 1 Tablet(s) Oral every day 023 2022 [facility] Requested Ozempic 1 mg/dose (4 mg/3 mL) subcutaneous pen injector RxNorm: 6826788 USE 1 UNIT DOSE SUBCUTANEOUSLY ON TUE OF EACH WEEK 023 2022 Inactive omeprazole 40 mg capsule,delayed release RxNorm: 20021111 Take 1 Capsule(s) Oral every night at bedtime 023 2022 Inactive gabapentin 300 mg capsule RxNorm: 168334 Take 1 Capsule(s) Oral three times a day 023 2022 Inactive montelukast 10 mg tablet RxNorm: 330152 Take 1 Tablet(s) Oral every day 023 2022 Inactive omeprazole 20 mg capsule,delayed release RxNorm: 821196 Take 1 Capsule(s) Oral every evening 2022 Inactive Alcohol Prep Pads RxNorm: 107095 USE EACH MORNING 2021 Inactive E11.42 clotrimazole 1 % topical cream RxNorm: 610017 Apply 1 Application Topical two times a day as needed apply to affected area(s) twice daily until healed 2021 Inactive Victoza 2-Sebastián 0.6 mg/0.1 mL (18 mg/3 mL) subcutaneous pen injector RxNorm: 445180 Inject 0.6-1.8 Milligram(s) Subcutaneous once a week Inject 0.6mg/0.1ml week one, 1.2mg/0.2ml week two, 1.8/0.3ml weekly thereafter 2021 Inactive ibuprofen 800 mg tablet RxNorm: 778636 Take 1 Tablet(s) Oral Q8H as needed for pain take with food No Stop Date Active Ozempic 1 mg/dose (4 mg/3 mL) subcutaneous pen injector RxNorm: 6863791 Take 1 Unit Dose Subcutaneous QWeek Tuesday2021 Inactive lisinopril 2.5 mg tablet RxNorm: 416196 Take 1 Tablet(s) Oral every day 022 2021 Inactive lisinopril 2.5 mg tablet RxNorm: 639031 Take 1 Tablet(s) Oral every day 022 2022 Inactive hydrochlorothiazide 25 mg tablet RxNorm: 360850 Take 1 Tablet(s) Oral every day 022 2021 Inactive Ozempic 1 mg/dose (4 mg/3 mL) subcutaneous pen injector RxNorm: 2257360 Take 1 Unit Dose Subcutaneous QWeek 022 2021 Inactive famotidine 20 mg tablet RxNorm: 391851 Take 1 Tablet(s) Oral every morning 022 2021 Inactive levothyroxine 50 mcg tablet RxNorm: 420342 Take 1 Tablet(s) Oral every day 022 2021 Inactive atorvastatin 20 mg tablet RxNorm: 119490 Take 1 Tablet(s) Oral every night at bedtime 022 2021 Inactive Cleocin T 1 % lotion RxNorm: 306789 Take 2 Gram(s) Topical every day 022 2021 Inactive Cleocin T 1 % lotion RxNorm: 100269 Take 2 Gram(s) Topical every day 022 2021 Inactive Ozempic 1 mg/dose (4 mg/3 mL) subcutaneous pen injector RxNorm: 9349324 Take 1 Unit Dose Subcutaneous QWeek 022 2021 Inactive Ozempic 0.25 mg or 0.5 mg (2 mg/1.5 mL) subcutaneous pen injector RxNorm: 9466447 INJECT 0.5 MGS SUBCUTANEOUSLY EVERY WEEK 2021 Inactive omeprazole 20 mg capsule,delayed release RxNorm: 572991 Take 1 Capsule(s) Oral every evening 022 2021 Inactive levothyroxine 50 mcg tablet RxNorm: 060479 Take 1 Tablet(s) Oral every day 2021 Inactive atorvastatin 20 mg tablet RxNorm: 004776 Take 1 Tablet(s) Oral every night at bedtime 2021 Inactive This refill negates all other refills of this medication lisinopril 2.5 mg tablet RxNorm: 770112 Take 1 Tablet(s) Oral every day 022 2021 Inactive gabapentin 300 mg capsule RxNorm: 744789 Take 1 Capsule(s) Oral three times a day 022 2021 Inactive montelukast 10 mg tablet RxNorm: 954237 Take 1 Tablet(s) Oral every day 022 2021 Inactive Myrbetriq 50 mg tablet,extended release RxNorm: 4630565 1 Tablet(s) Oral every day No Stop Date Active cholecalciferol (vitamin D3) 50 mcg (2,000 unit) tablet RxNorm: 681073 Take 1 Tablet(s) Oral every day 2022 Inactive Ozempic 0.25 mg or 0.5 mg (2 mg/1.5 mL) subcutaneous pen injector RxNorm: 5584323 inject 0.5 milligrams subcutaneously every week 2021 Inactive Ozempic 0.25 mg or 0.5 mg (2 mg/1.5 mL) subcutaneous pen injector RxNorm: 1685635 Take 0.5 Capsule(s) Injection once a week 2021 Inactive omeprazole 20 mg capsule,delayed release RxNorm: 320696 Take 1 Capsule(s) Oral every evening 2020 Inactive Ozempic 0.25 mg or 0.5 mg (2 mg/1.5 mL) subcutaneous pen injector RxNorm: 6276470 Take 0.25 Milligram(s) Subcutaneous once a week 2021 Inactive Easy Touch Alcohol Prep Pads RxNorm: 475537 USE DIRECTED EACH MORNING 2021 Inactive Probiotic 10 billion cell capsule RxNorm: 0915296 Take 1 Capsule(s) Oral every day 2021 Inactive levothyroxine 50 mcg tablet RxNorm: 667858 Take 1 Tablet(s) Oral every day 2020 Inactive Acid Sports Team Manager (famotidine) 20 mg tablet RxNorm: 420603 Take 1 Tablet(s) Oral every morning 2020 Inactive Heartburn Relief (famotidine) 10 mg tablet RxNorm: 739233 Take 1 Tablet(s) Oral QAM 2020 Inactive levothyroxine 50 mcg tablet RxNorm: 162254 Take 1 Tablet(s) Oral QD 2020 Inactive Singulair 10 mg tablet RxNorm: 745007 TAKE (1) TABLET BY MOUTH DAILY 2020 Inactive metformin 1,000 mg tablet RxNorm: 301846 1 Tablet(s) Oral two times a day 021 2021 Inactive lisinopril 2.5 mg tablet RxNorm: 138938 Take 1 Tablet(s) Oral every day 021 2020 Inactive hydrochlorothiazide 25 mg tablet RxNorm: 792101 Take 1 Tablet(s) Oral every day 021 2020 Inactive ondansetron 4 mg disintegrating tablet RxNorm: 378710 1 Tablet(s) Oral two times a day 021 2020 Inactive Sudafed 12 Hour 120 mg tablet,extended release RxNorm: 7323746 TAKE 1 TABLET BY MOUTH EVERY 12 HOURS NEEDED 2021 Inactive Heartburn Relief (famotidine) 10 mg tablet RxNorm: 769808 Take 1 Tablet(s) Oral every morning 021 2020 Inactive omeprazole 20 mg capsule,delayed release RxNorm: 112550 1 Capsule(s) Oral every evening 021 2020 Inactive sertraline 100 mg tablet RxNorm: 742110 2 Tablet(s) Oral every day 021 2020 Inactive levothyroxine 50 mcg tablet RxNorm: 378437 TAKE (1) TABLET BY MOUTH DAILY 021 2020 Inactive metformin 500 mg tablet RxNorm: 977116 1 Tablet(s) Oral two times a day take with 500mg to equal 1000mg 021 2020 Inactive gabapentin 300 mg capsule RxNorm: 033589 TAKE 1 CAPSULE BY MOUTH THREE TIMES A DAY 021 2020 Inactive lisinopril 2.5 mg tablet RxNorm: 012634 TAKE 1 TABLET BY MOUTH DAILY 021 2020 Inactive gabapentin 300 mg capsule RxNorm: 628843 TAKE 1 CAPSULE BY MOUTH THREE TIMES A DAY 021 2020 Inactive Singulair 10 mg tablet RxNorm: 419810 TAKE (1) TABLET BY MOUTH DAILY 021 2020 Inactive metformin 1,000 mg tablet RxNorm: 234053 1 Tablet(s) Oral two times a day 021 2020 Inactive atorvastatin 40 mg tablet RxNorm: 743854 1 Tablet(s) Oral every day 021 2020 Inactive omeprazole 20 mg capsule,delayed release RxNorm: 899048 1 Capsule(s) Oral every evening 021 2020 Inactive famotidine 10 mg tablet RxNorm: 674465 1 Tablet(s) Oral every morning 021 2020 Inactive Alcohol Prep Pads RxNorm: 013512 USE EACH MORNING 021 2020 Inactive omeprazole 20 mg capsule,delayed release RxNorm: 525618 1 Capsule(s) Oral two times a day 2021 Inactive omeprazole 20 mg capsule,delayed release RxNorm: 065413 TAKE 1 CAPSULE BY MOUTH EVERY DAY 2021 Inactive Macrobid 100 mg capsule RxNorm: 661026 1 Capsule(s) Oral every 12 hours with food 2020 Inactive omeprazole 20 mg capsule,delayed release RxNorm: 646755 1 Capsule(s) Oral two times a day 2021 Inactive metformin 1,000 mg tablet RxNorm: 290374 1 Tablet(s) Oral two times a day 2020 Inactive start on September 11, 2020 metformin 500 mg tablet RxNorm: 716488 1 Tablet(s) Oral two times a day take with 500mg to equal 1000mg 2019 Inactive gabapentin 300 mg capsule RxNorm: 310553 TAKE 1 CAPSULE BY MOUTH THREE TIMES DAILY 2020 Inactive cetirizine 10 mg tablet RxNorm: 7167897 TAKE (1) TABLET BY MOUTH DAILY 020 2020 Inactive metformin 500 mg tablet RxNorm: 457615 1 Tablet(s) Oral two times a day 020 2019 Inactive loperamide 2 mg tablet RxNorm: 187096 1 Tablet(s) Oral as needed take one tablet after each loose stool, maximum of 8 tablets in 24 hours 020 2021 Inactive Sudafed 12 Hour 120 mg tablet,extended release RxNorm: 3127859 TAKE 1 TABLET BY MOUTH EVERY 12 HOURS NEEDED 020 2019 Inactive hydrochlorothiazide 25 mg tablet RxNorm: 743715 TAKE (1) TABLET BY MOUTH EVERY DAY 020 2019 Inactive omeprazole 20 mg capsule,delayed release RxNorm: 479485 TAKE 1 CAPSULE BY MOUTH EVERY DAY 020 2020 Inactive metformin 500 mg tablet RxNorm: 123328 1 Tablet(s) Oral every day 020 2019 Inactive True Metrix Glucose Test Strip RxNorm: 1 Test Strips Miscellaneous two times a day as needed No Stop Date Active metformin 500 mg tablet RxNorm: 798825 1 Tablet(s) Oral every day 2019 Inactive diclofenac sodium 75 mg tablet,delayed release RxNorm: 313918 1 Tablet(s) PO BID 2021 Inactive This refill negates all other refills of this medication Sudafed 12 Hour 120 mg tablet,extended release RxNorm: 2625021 TAKE 1 TABLET BY MOUTH EVERY 12 HOURS NEEDED 020 2019 Inactive True Metrix Glucose Test Strip RxNorm: 1 Test Strips Miscellaneous every morning 020 2019 Inactive 100/container True Metrix Glucose Test Strip RxNorm: 1 Test Strips Miscellaneous QA 020 2019 Inactive 100/container loperamide 2 mg tablet RxNorm: 949932 1 Tablet(s) Oral as needed take one tablet after each loose stool, maximum of 8 tablets in 24 hours 020 2019 Inactive cetirizine 10 mg tablet RxNorm: 1838498 1 Tablet(s) PO daily 020 2019 Inactive loperamide 2 mg tablet RxNorm: 349041 1 Tablet(s) Oral as needed take one tablet after each loose stool, maximum of 8 tablets in 24 hours 2019 Inactive quetiapine 100 mg tablet RxNorm: 670955 1 Tablet(s) Oral every night at bedtime 2019 Inactive levothyroxine 50 mcg tablet RxNorm: 210965 1 Tablet(s) PO daily 2020 Inactive gabapentin 300 mg capsule RxNorm: 712841 1 Capsule(s) PO TID 2019 Inactive levothyroxine 50 mcg tablet RxNorm: 561285 1 Tablet(s) PO daily 2019 Inactive lisinopril 2.5 mg tablet RxNorm: 055926 1 Tablet(s) PO daily 2020 Inactive gabapentin 300 mg capsule RxNorm: 128637 1 Capsule(s) PO TID 2019 Inactive cetirizine 10 mg tablet RxNorm: 1360402 1 Tablet(s) PO daily 2019 Inactive Singulair 10 mg tablet RxNorm: 246635 1 Tablet(s) PO daily 2020 Inactive gentamicin 0.3 % eye drops RxNorm: 443630 1 Drop(s) ophthalmic (eye) four times a day 2019 Inactive gentamicin 0.3 % eye drops RxNorm: 651124 1 Drop(s) ophthalmic (eye) four times a day 2019 Inactive gentamicin 0.3 % eye drops RxNorm: 424468 1 Drop(s) ophthalmic (eye) four times a day 2019 Inactive hydrochlorothiazide 25 mg tablet RxNorm: 089223 1 Tablet(s) Oral every day 2019 Inactive Sudafed 12 Hour 120 mg tablet,extended release RxNorm: 2551619 TAKE (1) TABLET BY MOUTH EVERY 12 HOURS NEEDED 2019 Inactive loperamide 2 mg tablet RxNorm: 485634 1 Tablet(s) Oral as needed take one tablet after each loose stool, maximum of 8 tablets in 24 hours 020 2019 Inactive loperamide 2 mg tablet RxNorm: 968317 1 Tablet(s) Oral as needed take one tablet after each loose stool, maximum of 8 tablets in 24 hours 020 2019 Inactive atorvastatin 40 mg tablet RxNorm: 913245 1 Tablet(s) Oral every day 020 2020 Inactive quetiapine 100 mg tablet RxNorm: 317151 1 Tablet(s) Oral every night at bedtime 2019 Inactive sertraline 100 mg tablet RxNorm: 862077 1 Tablet(s) Oral 2019 Inactive omeprazole 20 mg capsule,delayed release RxNorm: 113708 1 Capsule(s) Oral every day 2019 Inactive amoxicillin 250 mg capsule RxNorm: 864507 1 Capsule(s) Oral three times a day 2019 Inactive multivitamin with iron-mineral tablet RxNorm: 1 Tablet(s) Oral every day 2021 Inactive cetirizine 10 mg tablet RxNorm: 4225954 1 Tablet(s) PO daily 2019 Inactive This refill negates all other refills of this medication. Please do not auto refill Singulair 10 mg tablet RxNorm: 686186 1 Tablet(s) PO daily 2019 Inactive This refill negates all other refills of this medication gabapentin 300 mg capsule RxNorm: 470912 1 Capsule(s) PO TID 2019 Inactive lisinopril 2.5 mg tablet RxNorm: 684273 1 Tablet(s) PO daily 2019 Inactive levothyroxine 50 mcg tablet RxNorm: 507490 1 Tablet(s) PO daily 2019 Inactive This refill negates all other refills of this medication hydrochlorothiazide 25 mg tablet RxNorm: 604563 1 Tablet(s) Oral every day 2019 Inactive fenugreek seed extract 500 mg capsule RxNorm: 1 Capsule(s) Oral three times a day 2021 Inactive Alcohol Prep Pads RxNorm: 688525 1 Patch TOP QAM 2020 Inactive loperamide 2 mg tablet RxNorm: 492394 1 Tablet(s) Oral as needed take one [...] 2019 Inactive hydrochlorothiazide 25 mg tablet RxNorm: 044678 1 Tablet(s) Oral every day 2019 Inactive Sudafed 12 Hour 120 mg tablet,extended release RxNorm: 2969454 1 Tablet(s) Oral every 12 hours as needed 2018 Inactive omeprazole 20 mg capsule,delayed release RxNorm: 505173 1 Capsule(s) Oral every day 2019 Inactive Sudafed 12 Hour 120 mg tablet,extended release RxNorm: 4613562 1 Tablet(s) Oral every 12 hours as needed 2018 Inactive pantoprazole 40 mg tablet,delayed release RxNorm: 286862 1 Tablet(s) Oral every day 2018 Inactive discontinue any other H2Blkr. and PPI albuterol sulfate 2.5 mg/3 mL (0.083 %) solution for nebulization RxNorm: 725967 1 Vial Inhalation every four hours as needed as needed for dyspnea 2019 Inactive 60/box. This refill negates all other refills of this medication. Please do not fill early. Please do not auto refill. Symbicort 160 mcg-4.5 mcg/actuation HFA aerosol inhaler RxNorm: 2614009 2 Puff(s) INH BID 019 No Stop Date Active Alcohol Prep Pads RxNorm: 596091 1 Patch TOP QAM 2019 Inactive Ventolin HFA 90 mcg/actuation aerosol inhaler RxNorm: 122182 2 Puff(s) INH QID 2019 Inactive Please do not fill early. Please do not auto refill. This refill negates all other refills of this medication True Metrix Glucose Test Strip RxNorm: 1 Test Strips Miscellaneous QA 2019 Inactive 100/container atorvastatin 40 mg tablet RxNorm: 982260 1 Tablet(s) Oral every day 2019 Inactive buspirone 7.5 mg tablet RxNorm: 136813 1 Tablet(s) PO BID 019 2020 Inactive This refill negates all other refills of this medication hydrochlorothiazide 12.5 mg tablet RxNorm: 808799 1 Tablet(s) PO QAM 019 2019 Inactive levmetamfetamine 50 mg nasal inhaler RxNorm: 1 Unit(s) NASAL Q3-4H Do not use more than every 3 hours or 8 times/24hours 019 2021 Inactive Please do not auto refill. This refill negates all other refills of this medication Ventolin HFA 90 mcg/actuation aerosol inhaler RxNorm: 750474 2 Puff(s) INH QID 019 2018 Inactive Please do not fill early. Please do not auto refill. This refill negates all other refills of this medication Singulair 10 mg tablet RxNorm: 885533 1 Tablet(s) PO daily 019 2019 Inactive This refill negates all other refills of this medication cetirizine 10 mg tablet RxNorm: 0038179 1 Tablet(s) PO daily 019 2019 Inactive This refill negates all other refills of this medication. Please do not auto refill levothyroxine 50 mcg tablet RxNorm: 812272 1 Tablet(s) PO daily 019 2019 Inactive This refill negates all other refills of this medication diclofenac sodium 75 mg tablet,delayed release RxNorm: 181384 1 Tablet(s) PO BID 019 2019 Inactive This refill negates all other refills of this medication ranitidine 150 mg tablet RxNorm: 311798 1 Tablet(s) PO BID 019 2018 Inactive This refill negates all other refills of this medication Calcium 600-D3 Plus (mag-zinc) 600 mg calcium-800 unit-50 mg tablet RxNorm: 1 Tablet(s) PO daily take an additonal tablet for itching. 019 2018 Inactive This refill negates all other refills of this medication albuterol sulfate 2.5 mg/3 mL (0.083 %) solution for nebulization RxNorm: 843307 1 Vial INH QID 2018 Inactive 60/box. This refill negates all other refills of this medication. Please do not fill early. Please do not auto refill. lisinopril 2.5 mg tablet RxNorm: 571391 1 Tablet(s) PO daily 019 2019 Inactive gabapentin 300 mg capsule RxNorm: 557723 1 Capsule(s) PO TID 019 2019 Inactive atorvastatin 20 mg tablet RxNorm: 905525 1 Tablet(s) PO QHS 019 2018 Inactive This refill negates all other refills of this medication TRUEplus Lancets 30 gauge RxNorm: 1 Lancets Miscellaneous QAM 019 2018 Inactive 100/box gabapentin 300 mg capsule RxNorm: 400471 1 Capsule(s) PO TID 019 2018 Inactive Flintstones Complete (iron) 18 mg iron chewable tablet RxNorm: 1 Tablet(s) PO daily 019 2021 Inactive This refill negates all other refills of this medication gabapentin 300 mg capsule RxNorm: 526554 1 Capsule(s) PO TID as needed 019 2018 Inactive True Metrix Glucose Test Strip RxNorm: 1 Test Strips Miscellaneous QAM 2018 Inactive 100/container Alcohol Prep Pads RxNorm: 695966 1 Patch TOP QAM 019 2018 Inactive TRUEplus Lancets 30 gauge RxNorm: 1 Lancets Miscellaneous QAM 019 2018 Inactive 100/box lisinopril 2.5 mg tablet RxNorm: 435213 1 Tablet(s) PO daily 2018 Inactive ranitidine 150 mg tablet RxNorm: 926136 1 Tablet(s) PO BID 2018 Inactive This refill negates all other refills of this medication albuterol sulfate 2.5 mg/3 mL (0.083 %) solution for nebulization RxNorm: 969077 1 Vial INH QID 2018 Inactive 60/box. [...] this medication gabapentin 300 mg capsule RxNorm: 306179 1 Capsule(s) PO TID as needed 019 2018 Inactive atorvastatin 20 mg tablet RxNorm: 063275 1 Tablet(s) PO QHS 019 2018 Inactive This refill negates all other refills of this medication trazodone 50 mg tablet RxNorm: 777022 1 Tablet(s) PO QHS 019 2018 Inactive This refill negates all other refills of this medication Ventolin HFA 90 mcg/actuation aerosol inhaler RxNorm: 291949 2 Puff(s) INH QID 019 2018 Inactive Please do not fill early. Please do not auto refill. This refill negates all other refills of this medication Calcium 600-D3 Plus 600 mg calcium-800 unit-50 mg tablet RxNorm: 1 Tablet(s) PO daily take an additonal tablet for itching. 019 2018 Inactive This refill negates all other refills of this medication Singulair 10 mg tablet RxNorm: 998731 1 Tablet(s) PO daily 019 2018 Inactive This refill negates all other refills of this medication buspirone 7.5 mg tablet RxNorm: 882507 1 Tablet(s) PO BID 019 2018 Inactive This refill negates all other refills of this medication diclofenac sodium 75 mg tablet,delayed release RxNorm: 941488 1 Tablet(s) PO BID 019 2018 Inactive This refill negates all other refills of this medication hydrochlorothiazide 12.5 mg tablet RxNorm: 072472 1 Tablet(s) PO QAM 019 2018 Inactive metoprolol succinate ER 50 mg tablet,extended release 24 hr RxNorm: 808320 1 Tablet(s) PO daily 019 2018 Inactive This refill negates all other refills of this medication levothyroxine 50 mcg tablet RxNorm: 640409 1 Tablet(s) PO daily 019 2018 Inactive This refill negates all other refills of this medication cetirizine 10 mg tablet RxNorm: 0783733 1 Tablet(s) PO daily 019 2018 Inactive This refill negates all other refills of this medication. Please do not auto refill Flintstones Complete (iron) 18 mg iron chewable tablet RxNorm: 1 Tablet(s) PO daily 019 2018 Inactive This refill negates all other refills of this medication buspirone 7.5 mg tablet RxNorm: 187348 1 Tablet(s) PO BID 2018 Inactive cetirizine 10 mg tablet RxNorm: 3726206 1 Tablet(s) PO daily 2018 Inactive Guaiasorb DM 10 mg-100 mg/5 mL oral liquid RxNorm: 072633 10 Milliliter(s) PO As needed every 4 hr 2018 Inactive Vicks Vaporub 4.7 %-1.2 %-2.6 % topical ointment RxNorm: 7064054 1 Application TOP TID 2018 Inactive levmetamfetamine 50 mg nasal inhaler RxNorm: 1 Unit(s) NASAL Q3-4H 2017 Inactive sertraline 50 mg tablet RxNorm: 847277 1 Tablet(s) PO daily 2018 Inactive Please note dose trazodone 50 mg tablet RxNorm: 472760 1 Tablet(s) PO QHS 2018 Inactive sertraline 50 mg tablet RxNorm: 154713 1 Tablet(s) PO daily 2017 Inactive amoxicillin 500 mg tablet RxNorm: 017798 1 Tablet(s) PO Q12H 2017 Inactive albuterol sulfate 2.5 mg/3 mL (0.083 %) solution for nebulization RxNorm: 836023 1 Vial INH QID 2018 Inactive 60/box. Please do not fill early. Please do not auto refill. Prozac 10 mg capsule RxNorm: 060288 1 Capsule(s) PO daily 2017 Inactive buspirone 7.5 mg tablet RxNorm: 232368 1 Tablet(s) PO BID 2018 Inactive gabapentin 300 mg capsule RxNorm: 407226 1 Capsule(s) PO TID as needed 2018 Inactive hydrochlorothiazide 12.5 mg tablet RxNorm: 094516 1 Tablet(s) PO QAM 018 2018 Inactive ranitidine 150 mg tablet RxNorm: 714856 1 Tablet(s) PO BID 018 2018 Inactive Macrobid 100 mg capsule RxNorm: 708630 1 Capsule(s) PO Q12H 018 2017 Inactive Singulair 10 mg tablet RxNorm: 322080 1 Tablet(s) PO daily 018 2018 Inactive Ventolin HFA 90 mcg/actuation aerosol inhaler RxNorm: 6393678 2 Puff(s) INH QID 018 2018 Inactive Singulair 10 mg tablet RxNorm: 769382 1 Tablet(s) PO daily 018 2017 Inactive buspirone 7.5 mg tablet RxNorm: 424833 1 Tablet(s) PO BID 018 2017 Inactive Prozac 10 mg capsule RxNorm: 800694 1 Capsule(s) PO daily 018 2017 Inactive diclofenac sodium 75 mg tablet,delayed release RxNorm: 749523 1 Tablet(s) PO BID 018 2017 Inactive lisinopril 2.5 mg tablet RxNorm: 347173 1 Tablet(s) PO daily 018 2017 Inactive Neilmed Pediatric Sinus Rinse Refill packet RxNorm: 1 Unit Dose NASAL PRN 018 2021 Inactive metoprolol succinate ER 50 mg tablet,extended release 24 hr RxNorm: 756754 1 Tablet(s) PO daily 018 2017 Inactive levothyroxine 50 mcg tablet RxNorm: 645825 1 Tablet(s) PO daily 018 2017 Inactive TRUEplus Lancets 30 gauge RxNorm: 1 Lancets Miscellaneous QAM 018 2017 Inactive 100/box Ventolin HFA 90 mcg/actuation aerosol inhaler RxNorm: 955810 2 Puff(s) INH QID 018 2017 Inactive Aleve 220 mg capsule RxNorm: 1973243 1 Capsule(s) PO BID 018 2018 Inactive ranitidine 150 mg tablet RxNorm: 361800 1 Tablet(s) PO BID 018 2017 Inactive gabapentin 300 mg capsule RxNorm: 746032 1 Capsule(s) PO TID as needed 2017 Inactive atorvastatin 20 mg tablet RxNorm: 580096 1 Tablet(s) PO QHS 018 2017 Inactive True Metrix Glucose Test Strip RxNorm: 1 Test Strips Miscellaneous QAM 018 2017 Inactive 50/container Calcium 600-D3 Plus 600 mg calcium-800 unit-50 mg tablet RxNorm: 1 Tablet(s) PO daily take an additonal tablet for itching. 018 2017 Inactive hydrochlorothiazide 12.5 mg tablet RxNorm: 300713 1 Tablet(s) PO QAM 018 2017 Inactive Flintstones Complete (iron) 18 mg iron chewable tablet RxNorm: 1 Tablet(s) PO daily 018 2017 Inactive True Metrix Glucose Meter RxNorm: miscellaneous 019 2018 Inactive sertraline 50 mg tablet RxNorm: 333397 1 Tablet(s) PO daily 020 2019 Inactive loperamide 2 mg tablet RxNorm: 890827 oral 019 2018 Inactive d-mannose oral powder RxNorm: PO 018 2021 Inactive Symbicort 160 mcg-4.5 mcg/actuation HFA aerosol inhaler RxNorm: 1970366 2 Puff(s) INH BID 019 2018 Inactive Medication Administered No Medication Administered data Procedures Procedure Codes Date FLUCELVAX PFS VAC NO PRSV 0.5 ML IM CPT-4: 30851 08/05/2023 Admin flu virus vaccine CPT-4: G0008 08/05/20 23 Patient Health Questionnaire CPT-4: DPHQ Electrocardiogram CPT-4: 42030 06/24/2023 Urinalysis, dip stick CPT-4: 94840 05/04/2023 Ferris Fany Assessment CPT-4: DSWA 01/02 Fall Risk Assessment CPT-4: DFRA 01/27/2023 Hypertension CPT-4: HTN 01/27/2023 Patient Health Questionnaire CPT-4: DPHQ Pain Screening CPT-4: PAS 2022 Tobacco Assessment/Screening CPT-4: TCA Hypertension CPT-4: HTN 08/17/2022 Ferris Fany Assessment CPT-4: DSWA 04/02 Patient Health [...] CPT-4: VACP Fall Risk Assessment SNOMED CT: 06189110 4 CPT-4: DFRA 01/13/2021 Ferris Fany Assessment CPT-4: DSWA 12/01 Urinalysis, dip stick CPT-4: 62323 09/24/2020 Patient Health Questionnaire CPT-4: DPHQ Electrocardiogram CPT-4: 68355 05/14/2020 Tobacco Assessment/Screening CPT-4: TCA Fall Risk Assessment SNOMED CT: 06673694 4 CPT-4: DFRA 01/01/2020 Functional Assessment CPT-4: DFA 01/01/2020 Ferris Fany Assessment CPT-4: DSWA 11/04 Patient Health Questionnaire CPT-4: DPHQ Ferris Fany Assessment CPT-4: DSWA 10/03 Hypertension CPT-4: HTN 10/17/2019 Fall Risk Assessment SNOMED CT: 85171275 4 CPT-4: DFRA 09/19/2019 Functional Assessment CPT-4: DFA 09/19/2019 Urinalysis, dip stick CPT-4: 09068 06/21/2019 Tobacco Assessment/Screening CPT-4: TCA Patient Health Questionnaire CPT-4: DPHQ AHA/REBECCA Classification Assessment CPT-4: DAHA 04/25/2019 Controlled Substance Report CPT-4: CTRSU 04/03 Urinalysis, dip stick CPT-4: 88232 03/28/2019 Urinalysis, dip stick CPT-4: 74156 03/28/2019 U9U-Snxkoalhbclshot CPT-4: 16127 Unknown H0P-Frggvdqqhmhmran CPT-4: 35027 Unknown Z6S-Gqftyxaumutqhpu CPT-4: 83997 Unknown I0B-Tigvjbyvwmytoui CPT-4: 23225 Unknown Z4Y-Wflmsstaxnnkpfv CPT-4: 84867 Unknown L1Z-Dmoyqthyjnjkbgn CPT-4: 89434 Unknown N2F-Ayscksbmltjkdld CPT-4: 83161 Unknown I6Z-Jtpaywxeaadgtei CPT-4: 99753 Unknown U4Q-Tykjemjrbedslni CPT-4: 79203 Unknown N0Q-Hrpxxkehaqbubfj CPT-4: 76611 Unknown W4P-Sqbrsedfpkmchab CPT-4: 80754 Unknown C5N-Yepehweemjurpue CPT-4: 49230 Unknown Gynecology Referral SNOMED CT: 765225678 CPT-4: R14 Unknown Vital Signs Date Vital 08/05/2023 Blood Pressure 1: 118/84 Code: 8480-6 BMI: 51.3 Code: 39530-9 Heart Rate 1: 70 bpm Height: 4'11 Code: 8302-2 Respiratory Rate: 16 bpm SpO2: 98% Temperature: 36.4 (C) / 97.5 (F) Weight: 254 lbs Code: 54170-3 Reason For Visit Reason For Visit Effective Dates Notes HTN 08/05/2023 weight gain/obesity 08/05/2023 diabetes mellitus 08/05/2023 joint complaint 08/05/2023 Interim health update 08/05/2023 Encounters Encounter Performer Location Location Address Codes [place] ([id number]) Home or Residence Visit Est Pt - High Level, 60 mins Diagnosis: Type 2 diabetes mellitus with hyperglycemia, without long-term current use of insulin[ICD10: E11.65] Diagnosis: Right foot pain[ICD10: M79.671] Diagnosis: Hypertensive heart disease without heart failure[ICD10: I11.9] Diagnosis: Encounter for immunization[ICD10: Z23] Anna Culver [facility] [address] [place] [address] CPT-4: 16490 08/05/2023 Plan of Care Planned Activity Notes Codes Status Date Visit Plan: Visit time spent inv olved in medical discussion with patient, including obtaining history from patient, systems review, diagnostic and laboratory test review with patient. Assessment findings and plan reviewed with patient, including time to provide counseling, and education to patient E11.65-250.00 Type 2 diabetes mellitus with hyperglycemia, without long-term current use of insulin (ongoing issues with controlling BS, currently testing 3x's daily to try to get BS controlled, complaining of pain to fingers secondary to neuropathy, due to ongoing neuropathy patient would benefit from CGM, order sent to DME for processing, will increase Januvia to 50mg daily) M79.671-729.5 Right foot pain (no known injury, discussed benefits of alternating heat/cold 20 minutes on/off, suggested she avoid stair exercises until pain resolved) I11.9-402.90 Hypertensive heart disease without heart failure (BP stable with current medications) Z23-V04.81 Encounter for immunization (flu vaccine offered and accepted, fact sheet left with patient) Will send note to Dr. Wayne for review 08/05/2023 Patient Education: Diabetes Complete d 08/05/2023 Patient Education: Hypertension Completed 08/05/2023 Patient Education: Obesity Completed 08/05/2023 Patient Education: Weight Gain Completed 08/05/2023 Patient Education: Patient Medication Summary Completed 08/05/2023 Care Plan: DME Ordered 08/05/2023 Appointment: Anna Culver WPtel: [address] [place] [address] E410 06/24/2023 Appointment: Anna Culver WPtel: [address] [place] [address] E410 05/04/2023 Appointment: Anna Culver WPtel: [id number] [place] [address] E410 01/27/2023 Appointment: Anna Culver WPtel: [address] [place] [address] E410 11/23/2022 Appointment: Anna Culver WPtel: [address] [place] [address] E410 2022 Appointment: nAna Culver WPtel: [address] [place] [address] E410 08/17/2022 Appointment: Anna Culver WPtel: [address] [place] [address] E410 06/23/2022 Appointment: Chivo Bishop WPtel: [address] [place] [address] E410 04/19/2022 Appointment: Chivo Bishop WPtel: [address] [place] [address] E410 02/11/2022 Appointment: Mikey Nair WPtel: [facility] 202[address] [id number] E410 12/03/2021 Appointment: Chivo Bishop WPtel: [address] [place] [address] E410 11/02/2021 Appointment: Chivo Bishop WPtel: [address] [place] [address] E410 10/07/2021 Appointment: Chivo Bishop WPtel: [address] [place] [address] ETV 09/10/2021 Appointment: Chivo Bishop WPtel: [address] [place] [address] ETV 08/13/2021 Appointment: Chivo Bishop WPtel: [address] [place] [address] ETV 07/06/2021 Appointment: Chivo Bishop WPtel: [address] [place] [address] PHTV 06/10/2021 Appointment: Anna Culver WPtel: [address] [place] [address] ETV 06/02/2021 Appointment: Chivo Bishop WPtel: [address] [place] [address] ETV 05/20/2021 Appointment: Anna Culver WPtel: [address] [place] [address] ETV 04/28/2021 Appointment: Chivo Bishop WPtel: [address] [place] [address] ETV 04/15/2021 Appointment: Anna Culver WPtel: [address] [place] [address] E410 04/01/2021 Appointment: Anna Culver WPtel: [address] [place] [address] ETV 03/24/2021 Appointment: Anna Culver WPtel: [address] [place] [address] ETV 03/13/2021 Appointment: Anna Culver WPtel: [address] [place] [address] E410 02/11/2021 Appointment: Chivo Bishop WPtel: [address] [place] [address] E410 01/29/2021 Appointment: Anna Culver WPtel: [address] [place], [place] [id number] [place] ETV 01/13/2021 Appointment: Anna Culver WPtel: [address] [place] [address] [place] E410 12/17/2020 Appointment: Chivo Bishop WPtel: [address] [place] [address] ETV 11/28/2020 Appointment: Anna Culver WPtel: [address] [place] [address] [place] ETV 11/24/2020 Appointment: Anna Culver WPtel: [address] [place] [address] [place] E410 10/29/2020 Appointment: Anna Culver WPtel: [address] [place] [address] E410 09/24/2020 Appointment: Anna Culver WPtel: [address] [place] [address] ETV 08/26/2020 Appointment: Anna Culver WPtel: [address] [place] [address] ETV 08/19/2020 Appointment: Anna Culver WPtel: [address] [place] [address] ETV 07/22/2020 Appointment: Anna Culver WPtel: [address] [place] [address] [place] ETV 07/08/2020 Appointment: Gianna Birmingham: [facility] [address] [place] ECHO 07/02/2020 Appointment: Anna Culver WPtel: [address] [place] [address] [place] E452 06/11/2020 Appointment: Anna Culver WPtel: [address] [place] [address] [place] E452 05/14/2020 Appointment: Anna Culver WPtel: [phone] E452 04/17/2020 Appointment: Anna Culver WPtel: [id number] [place] [address] E452 03/21/2020 Appointment: Anna Culver WPtel: [address] [place] [address] E452 02/14/2020 Appointment: Anna Culver WPtel: [address] [place] [address] E452 01/24/2020 Appointment: Anna Culver WPtel: [address] [place] [address] E452 01/01/2020 Appointment: Anna Culver WPtel: [address] [place] [address] E452 11/28/2019 Appointment: Anna Culver WPtel: [address] [place] [address] E452 10/17/2019 Appointment: Anna Culver WPtel: [address] [place] [address] E452 09/19/2019 Appointment: Sudha Hernadez WPtel: [facility] [id number] E452 07/04/2019 Appointment: Sudha Hernadez WPtel: [address] [facility] [id number] E452 06/21/2019 Appointment: Charlene Oropeza WPtel: [facility] [id number] E452 05/24/2019 Appointment: Mallory Delgado E452 04/27/2019 Appointment: Charlene Oropeza WPtel: [facility] [id number] E452 04/25/2019 Appointment: Rasta Palafox WPtel: [facility] [id number] E452 03/28/2019 Appointment: Rasta Palafox WPtel: [facility] [id number] E452 02/14/2019 Appointment: Rasta Palafox WPtel: [facility] [id number] E452 01/31/2019 Appointment: Rasta Palafox WPtel: [address] [facility] [id number] E420 12/27/2018 Referral: Pending Gynecology Referral Information Referral Processed Referral: Pending Pulmonolog y Referral Information Referral Processed Referral: Pending Psychiatry Referral Information Referral Initiated Referral: Pending Respirator y Services Referral Information Referral Initiated Referral: Pending Ophthalmology Referral Information Referral Initiated Referral: [facility] WPtel: [address] [place] [address] [address] Wall Washer placed a call out to the patient to notify her that it has been recommended that she be seen by a urologist. Patient agreed to be seen, does not have a provider of choice and no transportation issues. Wall Washer faxed referral and clinical notes to [facility] in [place], [place] near the patient's home. Patient to [...] seen and prefers a provider in the [place] or [facility]. Wall Washer placed a call out to everyone listed in the area and the only location that was able to accept the patient's insurance was [address] [address] and spoke with Maylin. Maylin asked that the patient's referral, face sheet and visit notes be faxed to . Wall Washer faxed over requested documents. Patient appointment confirmation letter generated and mailed to her home address. Patient to call to schedule an appointment. Processed Referral: [facility] WPtel: [address] [place] [address] Patient notified that it has been advised that she be seen by Neurology. Patient agreed to be seen and prefers to be seen by a provider in the [place], [place] area. Patient denies any concerns with transportation, and prefers to schedule her own appointment. Wall Washer placed a call out to [facility] and spoke with Neeraj [...] to provide counseling, and education to patient E11.65-250.00 Type 2 diabetes mellitus with hyperglycemia, without long-term current use of insulin (ongoing issues with controlling BS, currently testing 3x's daily to try to get BS controlled, complaining of pain to fingers secondary to neuropathy, due to ongoing neuropathy patient would benefit from CGM, order sent to DME for processing, will increase Januvia to 50mg daily) M79.671-729.5 Right foot pain (no known injury, discussed benefits of alternating heat/cold 20 minutes on/off, suggested she avoid stair exercises until pain resolved) I11.9-402.90 Hypertensive heart disease without heart failure (BP stable with current medications) Z23-V04.81 Encounter for immunization (flu vaccine offered and accepted, fact sheet left with patient) Will send note to Dr. Wayne for review 08/05/2023 Medical Equipment No Medical Equipment data Advance Directives No Advance Directive data
--- OUTSIDE RECORDS SUMMARY | 2024-01-03 23:28 | XMS_ITS | CCD ---
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 Behavioral Geneticist Name Role Phone Palomo KING, Anna Primary Care Provider Unav ailable Unavailable Chronic Care Management Unavaila ble Summary Purpose DataExchange Insurance Providers Payer name Policy type / Coverage type Covered republican ID Effective Begin Date Effective End Date SUKI MAYO [id number] Unknown Unknown Family history Mother Diagnosis Age [...] Unknown Disability 05/31/[address]: 525104041 Has never s moked or chewed tobacco 05/31/[address]: [id number] Never drinks alco hol 05/31/2018 Has the patient ever used illegal drugs? Unknown Has never used illegal drugs 05/31/2018 DNR Order/ Advanced Directive Unknown Full Code 05/31/2018 Allergies, Adverse Reactions, Alerts Substance Reaction Codes Entered Date Inactivated Date Status OxyContin itch, RxNorm: 118395 01/13/2021 No Inactive Da te Active *No known food allergies Unknown 09/06/2018 No I nactive Date Active Methylprednisolone hives RxNorm: 6902 09/06/2018 No Inac tive Date Active Problems Condition Codes Effective Dates Condition St atus Hypertensive heart disease w ithout heart failure ICD-10: I11.9 ICD-9: 402.90 12/03/2021 Active Type 2 diabetes mellitus wit h peripheral neuropathy ICD-10: E11.42 ICD-9: 250.60 11/28/2019 Active Upper respiratory infection ICD-10: J06. 9 ICD-9: 465.9 09/15/2023 Active Encounter for immunization ICD-10: Z23 ICD-9: V04.81 08/05/2023 Active Right foot pain ICD-10: M79.671 ICD-9: 729.5 08/05/2023 Active Type 2 diabetes mellitus wit h hyperglycemia, without long-term current use of insulin ICD-10: E11.65 ICD-9: 250.00 08/05/2023 Active Adult BMI 50.0-59.9 kg/sq m ICD-10: Z68. 43 ICD-9: V85.43 05/30/2018 Active Major depression, recurrent ICD-10: F33. 9 ICD-9: 296.30 06/23/2022 Active Allergic rhinitis ICD-10: J30.9 ICD-9: 477.9 [...] 784.0 10/03/2018 Inactive Other residential (current) dr edith therapy ICD-10: Z79.899 ICD-9: V58.69 04/25/2019 Inactive Type 2 diabetes mellitus wit hout complications ICD-10: E11.9 ICD-9: 250.00 10/03/2018 Inactive Wheezing ICD-10: R06.2 ICD-9: 786.07 08/08/2018 Inactive Abnormal urine finding ICD-10: R82.90 ICD-9: 791.9 09/24/2020 Resolved Abrasion of toe ICD-10: S90.416A ICD-9: 917.0 02/14/2020 Resolved [facility] ICD-10: H10.029 ICD-9: 372.03 12/29/2019 [...] Instructions omeprazole 40 mg capsule,delayed release RxNorm: 464960 Take 1 Capsule(s) Oral HS 024 2023 Active Januvia 100 mg tablet RxNorm: 646529 Take 1 Tablet(s) Oral every day 023 2023 Active amoxicillin 250 mg capsule RxNorm: 436923 Take 1 Capsule(s) Oral three times a day 023 2022 Inactive amoxicillin 500 mg tablet RxNorm: 762838 Take 1 Tablet(s) Oral three times a day 023 2022 Inactive Ozempic 1 mg/dose (4 mg/3 mL) subcutaneous pen injector RxNorm: 8051193 INJECT 1 UNITS DOSE SUBCUTANEOUSLY ON TUESDAY OF EACH WEEK 023 2023 Active MED IS ON B/O omeprazole 40 mg capsule,delayed release RxNorm: 312180 Take 1 Capsule(s) Oral HS 023 2022 Inactive Januvia 50 mg tablet RxNorm: 995596 Take 1 Tablet(s) Oral two times a day 023 2023 Inactive famotidine 20 mg tablet RxNorm: 123577 TAKE 1 TABLET BY MOUTH EACH MORNING 023 2023 Active Januvia 25 mg tablet RxNorm: 144023 Take 1 Tablet(s) Oral every day 023 2022 Inactive Ozempic 1 mg/dose (4 mg/3 mL) subcutaneous pen injector RxNorm: 2596905 INJECT 1 UNITS DOSE SUBCUTANEOUSLY ON TUESDAY OF EACH WEEK 2022 Inactive cetirizine 10 mg tablet RxNorm: 6316743 TAKE (1) TABLET BY MOUTH DAILY 023 2023 Inactive amoxicillin 500 mg tablet RxNorm: 162746 Take 1 Tablet(s) Oral two times a day 023 2022 Inactive omeprazole 40 mg capsule,delayed release RxNorm: 153517 Take 1 Capsule(s) Oral at bed time 023 2022 Inactive Easy Touch Alcohol Prep Pads RxNorm: 337862 USE EACH MORNING 023 2024 Active montelukast 10 mg tablet RxNorm: 947400 Take 1 Tablet(s) Oral every day 023 2022 Inactive gabapentin 300 mg capsule RxNorm: 645521 Take 1 Capsule(s) Oral three times a day 023 2022 Inactive metformin ER 500 mg 24 hr tablet,extended release RxNorm: 2079029 Take 1 Tablet(s) Oral every day with the evening meal 023 2022 Inactive famotidine 20 mg tablet RxNorm: 374654 Take 1 Tablet(s) Oral every morning 023 2022 Inactive levothyroxine 50 mcg tablet RxNorm: 885955 Take 1 Tablet(s) Oral every day 023 2023 Active Msg From [facility]: Approval Requested hydrochlorothiazide 25 mg tablet RxNorm: 863375 Take 1 Tablet(s) Oral every day 023 2023 Active Msg From [facility]: Approval Requested atorvastatin 20 mg tablet RxNorm: 979000 Take 1 Tablet(s) Oral every night at bedtime 023 2023 Active Macrobid 100 mg capsule RxNorm: 523200 1 Capsule(s) Oral every 12 hours with food 023 2022 Inactive omeprazole 40 mg capsule,delayed release RxNorm: 557605 Take 1 Capsule(s) Oral every night at bedtime 023 2022 Inactive trazodone 50 mg tablet RxNorm: 073227 Administer 1 Tablet(s) Oral every night at bedtime 023 No Stop Date Active cholecalciferol (vitamin D3) 50 mcg (2,000 unit) tablet RxNorm: 056745 Take 1 Tablet(s) Oral every day 023 2023 Active Ozempic 1 mg/dose (4 mg/3 mL) subcutaneous pen injector RxNorm: 8276043 USE 1 UNIT DOSE SUBCUTANEOUSLY ON TUE OF EACH WEEK 023 2022 Inactive lisinopril 2.5 mg tablet RxNorm: 719333 Take 1 Tablet(s) Oral every day 023 10/13/ 2023 Inactive Msg From [facility]: Dr. Zapata Requested Ozempic 1 mg/dose (4 mg/3 mL) subcutaneous pen injector RxNorm: 0196911 USE 1 UNIT DOSE SUBCUTANEOUSLY ON TUE OF EACH WEEK 023 2022 Inactive omeprazole 40 mg capsule,delayed release RxNorm: 334845 Take 1 Capsule(s) Oral every night at bedtime 023 2022 Inactive gabapentin 300 mg capsule RxNorm: 655077 Take 1 Capsule(s) Oral three times a day 023 2022 Inactive montelukast 10 mg tablet RxNorm: 479428 Take 1 Tablet(s) Oral every day 023 2022 Inactive omeprazole 20 mg capsule,delayed release RxNorm: 062592 Take 1 Capsule(s) Oral every evening 2022 Inactive Alcohol Prep Pads RxNorm: 710321 USE EACH MORNING 022 2021 Inactive E11.42 clotrimazole 1 % topical cream RxNorm: 080263 Apply 1 Application Topical two times a day as needed apply to affected area(s) twice daily until healed 2021 Inactive Victoza 2-Sebastián 0.6 mg/0.1 mL (18 mg/3 mL) subcutaneous pen injector RxNorm: 618428 Inject 0.6-1.8 Milligram(s) Subcutaneous once a week Inject 0.6mg/0.1ml week one, 1.2mg/0.2ml week two, 1.8/0.3ml weekly thereafter 2021 Inactive ibuprofen 800 mg tablet RxNorm: 699003 Take 1 Tablet(s) Oral Q8H as needed for pain take with food No Stop Date Active Ozempic 1 mg/dose (4 mg/3 mL) subcutaneous pen injector RxNorm: 2476959 Take 1 Unit Dose Subcutaneous QWeek Tuesday 022 2021 Inactive lisinopril 2.5 mg tablet RxNorm: 567780 Take 1 Tablet(s) Oral every day 022 2021 Inactive lisinopril 2.5 mg tablet RxNorm: 707416 Take 1 Tablet(s) Oral every day 022 2022 Inactive hydrochlorothiazide 25 mg tablet RxNorm: 244310 Take 1 Tablet(s) Oral every day 022 2021 Inactive Ozempic 1 mg/dose (4 mg/3 mL) subcutaneous pen injector RxNorm: 4815504 Take 1 Unit Dose Subcutaneous QWeek 022 2021 Inactive famotidine 20 mg tablet RxNorm: 727240 Take 1 Tablet(s) Oral every morning 2021 Inactive levothyroxine 50 mcg tablet RxNorm: 100336 Take 1 Tablet(s) Oral every day 022 2021 Inactive atorvastatin 20 mg tablet RxNorm: 126213 Take 1 Tablet(s) Oral every night at bedtime 2021 Inactive Cleocin T 1 % lotion RxNorm: 681886 Take 2 Gram(s) Topical every day 022 2021 Inactive Cleocin T 1 % lotion RxNorm: 137479 Take 2 Gram(s) Topical every day 022 2021 Inactive Ozempic 1 mg/dose (4 mg/3 mL) subcutaneous pen injector RxNorm: 7183099 Take 1 Unit Dose Subcutaneous QWeek 022 2021 Inactive Ozempic 0.25 mg or 0.5 mg (2 mg/1.5 mL) subcutaneous pen injector RxNorm: 6984955 INJECT 0.5 MGS SUBCUTANEOUSLY EVERY WEEK 022 2021 Inactive omeprazole 20 mg capsule,delayed release RxNorm: 649743 Take 1 Capsule(s) Oral every evening 022 2021 Inactive levothyroxine 50 mcg tablet RxNorm: 885308 Take 1 Tablet(s) Oral every day 022 2021 Inactive atorvastatin 20 mg tablet RxNorm: 999005 Take 1 Tablet(s) Oral every night at bedtime 052021 Inactive This refill negates all other refills of this medication lisinopril 2.5 mg tablet RxNorm: 971178 Take 1 Tablet(s) Oral every day 2021 Inactive gabapentin 300 mg capsule RxNorm: 454055 Take 1 Capsule(s) Oral three times a day 2021 Inactive montelukast 10 mg tablet RxNorm: 720451 Take 1 Tablet(s) Oral every day 2021 Inactive Myrbetriq 50 mg tablet,extended release RxNorm: 6732854 1 Tablet(s) Oral every day No Stop Date Active cholecalciferol (vitamin D3) 50 mcg (2,000 unit) tablet RxNorm: 433845 Take 1 Tablet(s) Oral every day 2022 Inactive Ozempic 0.25 mg or 0.5 mg (2 mg/1.5 mL) subcutaneous pen injector RxNorm: 2908513 inject 0.5 milligrams subcutaneously every week 2021 Inactive Ozempic 0.25 mg or 0.5 mg (2 mg/1.5 mL) subcutaneous pen injector RxNorm: 8328145 Take 0.5 Capsule(s) Injection once a week 022 2021 Inactive omeprazole 20 mg capsule,delayed release RxNorm: 251859 Take 1 Capsule(s) Oral every evening 2020 Inactive Ozempic 0.25 mg or 0.5 mg (2 mg/1.5 mL) subcutaneous pen injector RxNorm: 4187462 Take 0.25 Milligram(s) Subcutaneous once a week 2021 Inactive Easy Touch Alcohol Prep Pads RxNorm: 912851 USE DIRECTED EACH MORNING 021 2021 Inactive Probiotic 10 billion cell capsule RxNorm: 7639564 Take 1 Capsule(s) Oral every day 2021 Inactive levothyroxine 50 mcg tablet RxNorm: 211164 Take 1 Tablet(s) Oral every day 021 2020 Inactive Acid Entomology Teacher (famotidine) 20 mg tablet RxNorm: 078150 Take 1 Tablet(s) Oral every morning 021 2020 Inactive Heartburn Relief (famotidine) 10 mg tablet RxNorm: 053480 Take 1 Tablet(s) Oral QAM 021 2020 Inactive levothyroxine 50 mcg tablet RxNorm: 373515 Take 1 Tablet(s) Oral QD 2020 Inactive Singulair 10 mg tablet RxNorm: 983812 TAKE (1) TABLET BY MOUTH DAILY 2020 Inactive metformin 1,000 mg tablet RxNorm: 618361 1 Tablet(s) Oral two times a day 2021 Inactive lisinopril 2.5 mg tablet RxNorm: 930837 Take 1 Tablet(s) Oral every day 2020 Inactive hydrochlorothiazide 25 mg tablet RxNorm: 354430 Take 1 Tablet(s) Oral every day 021 2020 Inactive ondansetron 4 mg disintegrating tablet RxNorm: 485965 1 Tablet(s) Oral two times a day 021 2020 Inactive Sudafed 12 Hour 120 mg tablet,extended release RxNorm: 4468503 TAKE 1 TABLET BY MOUTH EVERY 12 HOURS NEEDED 2021 Inactive Heartburn Relief (famotidine) 10 mg tablet RxNorm: 067690 Take 1 Tablet(s) Oral every morning 021 2020 Inactive omeprazole 20 mg capsule,delayed release RxNorm: 787920 1 Capsule(s) Oral every evening 021 2020 Inactive sertraline 100 mg tablet RxNorm: 229278 2 Tablet(s) Oral every day 021 2020 Inactive levothyroxine 50 mcg tablet RxNorm: 308965 TAKE (1) TABLET BY MOUTH DAILY 021 2020 Inactive metformin 500 mg tablet RxNorm: 473880 1 Tablet(s) Oral two times a day take with 500mg to equal 1000mg 021 2020 Inactive gabapentin 300 mg capsule RxNorm: 822981 TAKE 1 CAPSULE BY MOUTH THREE TIMES A DAY 021 2020 Inactive lisinopril 2.5 mg tablet RxNorm: 910424 TAKE 1 TABLET BY MOUTH DAILY 2020 Inactive gabapentin 300 mg capsule RxNorm: 960979 TAKE 1 CAPSULE BY MOUTH THREE TIMES A DAY 021 2020 Inactive Singulair 10 mg tablet RxNorm: 096475 TAKE (1) TABLET BY MOUTH DAILY 2020 Inactive metformin 1,000 mg tablet RxNorm: 746120 1 Tablet(s) Oral two times a day 2020 Inactive atorvastatin 40 mg tablet RxNorm: 335746 1 Tablet(s) Oral every day 021 2020 Inactive omeprazole 20 mg capsule,delayed release RxNorm: 876934 1 Capsule(s) Oral every evening 021 2020 Inactive famotidine 10 mg tablet RxNorm: 454970 1 Tablet(s) Oral every morning 021 2020 Inactive Alcohol Prep Pads RxNorm: 602865 USE EACH MORNING 021 2020 Inactive omeprazole 20 mg capsule,delayed release RxNorm: 962749 1 Capsule(s) Oral two times a day 021 2021 Inactive omeprazole 20 mg capsule,delayed release RxNorm: 642083 TAKE 1 CAPSULE BY MOUTH EVERY DAY 021 2021 Inactive Macrobid 100 mg capsule RxNorm: 497062 1 Capsule(s) Oral every 12 hours with food 2020 Inactive omeprazole 20 mg capsule,delayed release RxNorm: 673714 1 Capsule(s) Oral two times a day 2021 Inactive metformin 1,000 mg tablet RxNorm: 841454 1 Tablet(s) Oral two times a day 2020 Inactive start on September 11, 2020 metformin 500 mg tablet RxNorm: 988221 1 Tablet(s) Oral two times a day take with 500mg to equal 1000mg 2019 Inactive gabapentin 300 mg capsule RxNorm: 269269 TAKE 1 CAPSULE BY MOUTH THREE TIMES DAILY 2020 Inactive cetirizine 10 mg tablet RxNorm: 8418351 TAKE (1) TABLET BY MOUTH DAILY 2020 Inactive metformin 500 mg tablet RxNorm: 766943 1 Tablet(s) Oral two times a day 2019 Inactive loperamide 2 mg tablet RxNorm: 941254 1 Tablet(s) Oral as needed take one tablet after each loose stool, maximum of 8 tablets in 24 hours 2021 Inactive Sudafed 12 Hour 120 mg tablet,extended release RxNorm: 3002206 TAKE 1 TABLET BY MOUTH EVERY 12 HOURS NEEDED 020 2019 Inactive hydrochlorothiazide 25 mg tablet RxNorm: 488322 TAKE (1) TABLET BY MOUTH EVERY DAY 2019 Inactive omeprazole 20 mg capsule,delayed release RxNorm: 129240 TAKE 1 CAPSULE BY MOUTH EVERY DAY 2020 Inactive metformin 500 mg tablet RxNorm: 127197 1 Tablet(s) Oral every day 2019 Inactive True Metrix Glucose Test Strip RxNorm: 1 Test Strips Miscellaneous two times a day as needed No Stop Date Active metformin 500 mg tablet RxNorm: 516710 1 Tablet(s) Oral every day 2019 Inactive diclofenac sodium 75 mg tablet,delayed release RxNorm: 055996 1 Tablet(s) PO BID 2021 Inactive This refill negates all other refills of this medication Sudafed 12 Hour 120 mg tablet,extended release RxNorm: 1111356 TAKE 1 TABLET BY MOUTH EVERY 12 HOURS NEEDED 020 2019 Inactive True Metrix Glucose Test Strip RxNorm: 1 Test Strips Miscellaneous every morning 020 2019 Inactive 100/container True Metrix Glucose Test Strip RxNorm: 1 Test Strips Miscellaneous QAM 020 2019 Inactive 100/container loperamide 2 mg tablet RxNorm: 864862 1 Tablet(s) Oral as needed take one tablet after each loose stool, maximum of 8 tablets in 24 hours 020 2019 Inactive cetirizine 10 mg tablet RxNorm: 5382264 1 Tablet(s) PO daily 2019 Inactive loperamide 2 mg tablet RxNorm: 385750 1 Tablet(s) Oral as needed take one tablet after each loose stool, maximum of 8 tablets in 24 hours 2019 Inactive quetiapine 100 mg tablet RxNorm: 543296 1 Tablet(s) Oral every night at bedtime 2019 Inactive levothyroxine 50 mcg tablet RxNorm: 453321 1 Tablet(s) PO daily 2020 Inactive gabapentin 300 mg capsule RxNorm: 694355 1 Capsule(s) PO TID 2019 Inactive levothyroxine 50 mcg tablet RxNorm: 173163 1 Tablet(s) PO daily 2019 Inactive lisinopril 2.5 mg tablet RxNorm: 239647 1 Tablet(s) PO daily 020 2020 Inactive gabapentin 300 mg capsule RxNorm: 249728 1 Capsule(s) PO TID 2019 Inactive cetirizine 10 mg tablet RxNorm: 7639800 1 Tablet(s) PO daily 2019 Inactive Singulair 10 mg tablet RxNorm: 404212 1 Tablet(s) PO daily 020 2020 Inactive gentamicin 0.3 % eye drops RxNorm: 895091 1 Drop(s) ophthalmic (eye) four times a day 2019 Inactive gentamicin 0.3 % eye drops RxNorm: 828243 1 Drop(s) ophthalmic (eye) four times a day 2019 Inactive gentamicin 0.3 % eye drops RxNorm: 331163 1 Drop(s) ophthalmic (eye) four times a day 2019 Inactive hydrochlorothiazide 25 mg tablet RxNorm: 318254 1 Tablet(s) Oral every day 2019 Inactive Sudafed 12 Hour 120 mg tablet,extended release RxNorm: 5082062 TAKE (1) TABLET BY MOUTH EVERY 12 HOURS NEEDED 2019 Inactive loperamide 2 mg tablet RxNorm: 940454 1 Tablet(s) Oral as needed take one tablet after each loose stool, maximum of 8 tablets in 24 hours 020 2019 Inactive loperamide 2 mg tablet RxNorm: 826039 1 Tablet(s) Oral as needed take one tablet after each loose stool, maximum of 8 tablets in 24 hours 2019 Inactive atorvastatin 40 mg tablet RxNorm: 237074 1 Tablet(s) Oral every day 2020 Inactive quetiapine 100 mg tablet RxNorm: 529885 1 Tablet(s) Oral every night at bedtime 2019 Inactive sertraline 100 mg tablet RxNorm: 118707 1 Tablet(s) Oral 2019 Inactive omeprazole 20 mg capsule,delayed release RxNorm: 223005 1 Capsule(s) Oral every day 2019 Inactive amoxicillin 250 mg capsule RxNorm: 001690 1 Capsule(s) Oral three times a day 2019 Inactive multivitamin with iron-mineral tablet RxNorm: 1 Tablet(s) Oral every day 020 2021 Inactive cetirizine 10 mg tablet RxNorm: 6501320 1 Tablet(s) PO daily 2019 Inactive This refill negates all other refills of this medication. Please do not auto refill Singulair 10 mg tablet RxNorm: 237850 1 Tablet(s) PO daily 2019 Inactive This refill negates all other refills of this medication gabapentin 300 mg capsule RxNorm: 966372 1 Capsule(s) PO TID 2019 Inactive lisinopril 2.5 mg tablet RxNorm: 251413 1 Tablet(s) PO daily 2019 Inactive levothyroxine 50 mcg tablet RxNorm: 481768 1 Tablet(s) PO daily 2019 Inactive This refill negates all other refills of this medication hydrochlorothiazide 25 mg tablet RxNorm: 132821 1 Tablet(s) Oral every day 2019 Inactive fenugreek seed extract 500 mg capsule RxNorm: 1 Capsule(s) Oral three times a day 2021 Inactive Alcohol Prep Pads RxNorm: 451827 1 Patch TOP QAM 2020 Inactive loperamide 2 mg tablet RxNorm: 777628 1 Tablet(s) Oral as needed take one [...] 2019 Inactive hydrochlorothiazide 25 mg tablet RxNorm: 895679 1 Tablet(s) Oral every day 019 2019 Inactive Sudafed 12 Hour 120 mg tablet,extended release RxNorm: 4354483 1 Tablet(s) Oral every 12 hours as needed 019 2018 Inactive omeprazole 20 mg capsule,delayed release RxNorm: 069654 1 Capsule(s) Oral every day 019 2019 Inactive Sudafed 12 Hour 120 mg tablet,extended release RxNorm: 2077431 1 Tablet(s) Oral every 12 hours as needed 019 2018 Inactive pantoprazole 40 mg tablet,delayed release RxNorm: 113855 1 Tablet(s) Oral every day 2018 Inactive discontinue any other H2Blkr. and PPI albuterol sulfate 2.5 mg/3 mL (0.083 %) solution for nebulization RxNorm: 866402 1 Vial Inhalation every four hours as needed as needed for dyspnea 2019 Inactive 60/box. This refill negates all other refills of this medication. Please do not fill early. Please do not auto refill. Symbicort 160 mcg-4.5 mcg/actuation HFA aerosol inhaler RxNorm: 2409441 2 Puff(s) INH BID No Stop Date Active Alcohol Prep Pads RxNorm: 126844 1 Patch TOP QAM 2019 Inactive Ventolin HFA 90 mcg/actuation aerosol inhaler RxNorm: 736582 2 Puff(s) INH QID 2019 Inactive Please do not fill early. Please do not auto refill. This refill negates all other refills of this medication True Metrix Glucose Test Strip RxNorm: 1 Test Strips Miscellaneous QAM 019 2019 Inactive 100/container atorvastatin 40 mg tablet RxNorm: 468552 1 Tablet(s) Oral every day 019 2019 Inactive buspirone 7.5 mg tablet RxNorm: 430845 1 Tablet(s) PO BID 019 2020 Inactive This refill negates all other refills of this medication hydrochlorothiazide 12.5 mg tablet RxNorm: 588686 1 Tablet(s) PO QAM 019 2019 Inactive levmetamfetamine 50 mg nasal inhaler RxNorm: 1 Unit(s) NASAL Q3-4H Do not use more than every 3 hours or 8 times/24hours 019 2021 Inactive Please do not auto refill. This refill negates all other refills of this medication Ventolin HFA 90 mcg/actuation aerosol inhaler RxNorm: 875087 2 Puff(s) INH QID 019 2018 Inactive Please do not fill early. Please do not auto refill. This refill negates all other refills of this medication Singulair 10 mg tablet RxNorm: 085019 1 Tablet(s) PO daily 019 2019 Inactive This refill negates all other refills of this medication cetirizine 10 mg tablet RxNorm: 0389693 1 Tablet(s) PO daily 019 2019 Inactive This refill negates all other refills of this medication. Please do not auto refill levothyroxine 50 mcg tablet RxNorm: 665454 1 Tablet(s) PO daily 019 2019 Inactive This refill negates all other refills of this medication diclofenac sodium 75 mg tablet,delayed release RxNorm: 321740 1 Tablet(s) PO BID 019 2019 Inactive This refill negates all other refills of this medication ranitidine 150 mg tablet RxNorm: 400571 1 Tablet(s) PO BID 019 2018 Inactive This refill negates all other refills of this medication Calcium 600-D3 Plus (mag-zinc) 600 mg calcium-800 unit-50 mg tablet RxNorm: 1 Tablet(s) PO daily take an additonal tablet for itching. 019 2018 Inactive This refill negates all other refills of this medication albuterol sulfate 2.5 mg/3 mL (0.083 %) solution for nebulization RxNorm: 059166 1 Vial INH QID 019 2018 Inactive 60/box. This refill negates all other refills of this medication. Please do not fill early. Please do not auto refill. lisinopril 2.5 mg tablet RxNorm: 427580 1 Tablet(s) PO daily 019 2019 Inactive gabapentin 300 mg capsule RxNorm: 813814 1 Capsule(s) PO TID 019 2019 Inactive atorvastatin 20 mg tablet RxNorm: 947560 1 Tablet(s) PO QHS 2018 Inactive This refill negates all other refills of this medication TRUEplus Lancets 30 gauge RxNorm: 1 Lancets Miscellaneous QAM 019 2018 Inactive 100/box gabapentin 300 mg capsule RxNorm: 528999 1 Capsule(s) PO TID 019 2018 Inactive Flintstones Complete (iron) 18 mg iron chewable tablet RxNorm: 1 Tablet(s) PO daily 019 2021 Inactive This refill negates all other refills of this medication gabapentin 300 mg capsule RxNorm: 880962 1 Capsule(s) PO TID as needed 019 2018 Inactive True Metrix Glucose Test Strip RxNorm: 1 Test Strips Miscellaneous QAM 2018 Inactive 100/container Alcohol Prep Pads RxNorm: 848587 1 Patch TOP QAM 019 2018 Inactive TRUEplus Lancets 30 gauge RxNorm: 1 Lancets Miscellaneous QAM 019 2018 Inactive 100/box lisinopril 2.5 mg tablet RxNorm: 657582 1 Tablet(s) PO daily 019 2018 Inactive ranitidine 150 mg tablet RxNorm: 927554 1 Tablet(s) PO BID 2018 Inactive This refill negates all other refills of this medication albuterol sulfate 2.5 mg/3 mL (0.083 %) solution for nebulization RxNorm: 617555 1 Vial INH QID 019 2018 Inactive [...] this medication gabapentin 300 mg capsule RxNorm: 437483 1 Capsule(s) PO TID as needed 2018 Inactive atorvastatin 20 mg tablet RxNorm: 360073 1 Tablet(s) PO QHS 019 2018 Inactive This refill negates all other refills of this medication trazodone 50 mg tablet RxNorm: 186312 1 Tablet(s) PO QHS 019 2018 Inactive This refill negates all other refills of this medication Ventolin HFA 90 mcg/actuation aerosol inhaler RxNorm: 788268 2 Puff(s) INH QID 019 2018 Inactive Please do not fill early. Please do not auto refill. This refill negates all other refills of this medication Calcium 600-D3 Plus 600 mg calcium-800 unit-50 mg tablet RxNorm: 1 Tablet(s) PO daily take an additonal tablet for itching. 019 2018 Inactive This refill negates all other refills of this medication Singulair 10 mg tablet RxNorm: 360502 1 Tablet(s) PO daily 019 2018 Inactive This refill negates all other refills of this medication buspirone 7.5 mg tablet RxNorm: 492763 1 Tablet(s) PO BID 019 2018 Inactive This refill negates all other refills of this medication diclofenac sodium 75 mg tablet,delayed release RxNorm: 824619 1 Tablet(s) PO BID 019 2018 Inactive This refill negates all other refills of this medication hydrochlorothiazide 12.5 mg tablet RxNorm: 232659 1 Tablet(s) PO QAM 019 2018 Inactive metoprolol succinate ER 50 mg tablet,extended release 24 hr RxNorm: 902626 1 Tablet(s) PO daily 019 2018 Inactive This refill negates all other refills of this medication levothyroxine 50 mcg tablet RxNorm: 948993 1 Tablet(s) PO daily 019 2018 Inactive This refill negates all other refills of this medication cetirizine 10 mg tablet RxNorm: 5943615 1 Tablet(s) PO daily 019 2018 Inactive This refill negates all other refills of this medication. Please do not auto refill Flintstones Complete (iron) 18 mg iron chewable tablet RxNorm: 1 Tablet(s) PO daily 019 2018 Inactive This refill negates all other refills of this medication buspirone 7.5 mg tablet RxNorm: 483140 1 Tablet(s) PO BID 2018 Inactive cetirizine 10 mg tablet RxNorm: 0361749 1 Tablet(s) PO daily 2018 Inactive Guaiasorb DM 10 mg-100 mg/5 mL oral liquid RxNorm: 416601 10 Milliliter(s) PO As needed every 4 hr 2018 Inactive Vicks Vaporub 4.7 %-1.2 %-2.6 % topical ointment RxNorm: 4744153 1 Application TOP TID 2018 Inactive levmetamfetamine 50 mg nasal inhaler RxNorm: 1 Unit(s) NASAL Q3-4H 2017 Inactive sertraline 50 mg tablet RxNorm: 978038 1 Tablet(s) PO daily 2018 Inactive Please note dose trazodone 50 mg tablet RxNorm: 314042 1 Tablet(s) PO QHS 018 2018 Inactive sertraline 50 mg tablet RxNorm: 938619 1 Tablet(s) PO daily 018 2017 Inactive amoxicillin 500 mg tablet RxNorm: 389607 1 Tablet(s) PO Q12H 018 2017 Inactive albuterol sulfate 2.5 mg/3 mL (0.083 %) solution for nebulization RxNorm: 624008 1 Vial INH QID 018 2018 Inactive 60/box. Please do not fill early. Please do not auto refill. Prozac 10 mg capsule RxNorm: 738914 1 Capsule(s) PO daily 018 2017 Inactive buspirone 7.5 mg tablet RxNorm: 121603 1 Tablet(s) PO BID 018 2018 Inactive gabapentin 300 mg capsule RxNorm: 026019 1 Capsule(s) PO TID as needed 2018 Inactive hydrochlorothiazide 12.5 mg tablet RxNorm: 327226 1 Tablet(s) PO QAM 018 2018 Inactive ranitidine 150 mg tablet RxNorm: 650547 1 Tablet(s) PO BID 018 2018 Inactive Macrobid 100 mg capsule RxNorm: 982246 1 Capsule(s) PO Q12H 018 2017 Inactive Singulair 10 mg tablet RxNorm: 271483 1 Tablet(s) PO daily 018 2018 Inactive Ventolin HFA 90 mcg/actuation aerosol inhaler RxNorm: 7520644 2 Puff(s) INH QID 018 2018 Inactive Singulair 10 mg tablet RxNorm: 313387 1 Tablet(s) PO daily 018 2017 Inactive buspirone 7.5 mg tablet RxNorm: 123260 1 Tablet(s) PO BID 018 2017 Inactive Prozac 10 mg capsule RxNorm: 063817 1 Capsule(s) PO daily 018 2017 Inactive diclofenac sodium 75 mg tablet,delayed release RxNorm: 178829 1 Tablet(s) PO BID 018 2017 Inactive lisinopril 2.5 mg tablet RxNorm: 607010 1 Tablet(s) PO daily 018 2017 Inactive Neilmed Pediatric Sinus Rinse Refill packet RxNorm: 1 Unit Dose NASAL PRN 018 2021 Inactive metoprolol succinate ER 50 mg tablet,extended release 24 hr RxNorm: 206952 1 Tablet(s) PO daily 018 2017 Inactive levothyroxine 50 mcg tablet RxNorm: 042537 1 Tablet(s) PO daily 018 2017 Inactive TRUEplus Lancets 30 gauge RxNorm: 1 Lancets Miscellaneous QAM 018 2017 Inactive 100/box Ventolin HFA 90 mcg/actuation aerosol inhaler RxNorm: 927294 2 Puff(s) INH QID 018 2017 Inactive Aleve 220 mg capsule RxNorm: 4164611 1 Capsule(s) PO BID 018 2018 Inactive ranitidine 150 mg tablet RxNorm: 841240 1 Tablet(s) PO BID 018 2017 Inactive gabapentin 300 mg capsule RxNorm: 783831 1 Capsule(s) PO TID as needed 2017 Inactive atorvastatin 20 mg tablet RxNorm: 578879 1 Tablet(s) PO QHS 018 2017 Inactive True Metrix Glucose Test Strip RxNorm: 1 Test Strips Miscellaneous QAM 018 2017 Inactive 50/container Calcium 600-D3 Plus 600 mg calcium-800 unit-50 mg tablet RxNorm: 1 Tablet(s) PO daily take an additonal tablet for itching. 018 2017 Inactive hydrochlorothiazide 12.5 mg tablet RxNorm: 999759 1 Tablet(s) PO QAM 018 2017 Inactive Flintstones Complete (iron) 18 mg iron chewable tablet RxNorm: 1 Tablet(s) PO daily 018 2017 Inactive True Metrix Glucose Meter RxNorm: miscellaneous 019 2018 Inactive sertraline 50 mg tablet RxNorm: 735593 1 Tablet(s) PO daily 020 2019 Inactive loperamide 2 mg tablet RxNorm: 804711 oral 019 2018 Inactive d-mannose oral powder RxNorm: PO 018 2021 Inactive Symbicort 160 mcg-4.5 mcg/actuation HFA aerosol inhaler RxNorm: 7260399 2 Puff(s) INH BID 019 2018 Inactive Medication Administered No Medication Administered data Procedures Procedure Codes Date Patient Health Questionnaire CPT-4: DPHQ Electrocardiogram CPT-4: 16960 06/24/2023 Urinalysis, dip stick CPT-4: 20987 05/04/2023 [place] Assessment CPT-4: DSWA 01/02 Fall Risk Assessment CPT-4: DFRA 01/27/2023 Hypertension CPT-4: HTN 01/27/2023 Patient Health Questionnaire CPT-4: DPHQ Pain Screening CPT-4: PAS 2022 Tobacco Assessment/Screening CPT-4: TCA Hypertension CPT-4: HTN 08/17/2022 [place] Assessment CPT-4: DSWA 04/02 Patient Health [...] CPT-4: VACP Fall Risk Assessment SNOMED CT: 08489139 4 CPT-4: DFRA 01/13/2021 [place] Assessment CPT-4: DSWA 12/01 Urinalysis, dip stick CPT-4: 30132 09/24/2020 Patient Health Questionnaire CPT-4: DPHQ Electrocardiogram CPT-4: 67691 05/14/2020 Tobacco Assessment/Screening CPT-4: TCA Fall Risk Assessment SNOMED CT: 73946709 4 CPT-4: DFRA 01/01/2020 Functional Assessment CPT-4: DFA 01/01/2020 [place] Assessment CPT-4: DSWA 11/04 Patient Health Questionnaire CPT-4: DPHQ [place] Assessment CPT-4: DSWA 10/03 Hypertension CPT-4: HTN 10/17/2019 Fall Risk Assessment SNOMED CT: 41740197 4 CPT-4: DFRA 09/19/2019 Functional Assessment CPT-4: DFA 09/19/2019 Urinalysis, dip stick CPT-4: 30275 06/21/2019 Tobacco Assessment/Screening CPT-4: TCA Patient Health Questionnaire CPT-4: DPHQ AHA/REBECCA Classification Assessment CPT-4: DAHA 04/25/2019 Controlled Substance Report CPT-4: CTRSU 04/03 Urinalysis, dip stick CPT-4: 51018 03/28/2019 Urinalysis, dip stick CPT-4: 78583 03/28/2019 A6F-Htqsdeafrlcqpsg CPT-4: 17926 Unknown E7L-Fjwdjfxsoorurhn CPT-4: 58906 Unknown R6R-Fnehrrykmeufige CPT-4: 81303 Unknown Z0T-Ymqaomtlanfwduf CPT-4: 21622 Unknown Y9G-Honklwastiewimn CPT-4: 76456 Unknown Y6H-Yxoiurfbkzamaqs CPT-4: 80697 Unknown X9M-Zycqouylltajtlg CPT-4: 67936 Unknown F8B-Zpsjaynhfwgkzcm CPT-4: 80434 Unknown Q0N-Fjbirzqrynrilqg CPT-4: 60180 Unknown Z2Z-Rzbuzeroufeyows CPT-4: 09221 Unknown F6I-Zbiwmhvucedndwn CPT-4: 94992 Unknown U0K-Ewbzuvduhlastsh CPT-4: 94464 Unknown Gynecology Referral SNOMED CT: 903221665 CPT-4: R14 Unknown K7H-Xezpzwygyqhjixf CPT-4: 31761 Unknown Reason For Visit No Reason For Visit data Plan of Care Planned Activity Notes Codes Status Date Referral: Pending Gynecology Referral Information Referral Processed Referral: Pending Pulmonolog y Referral Information Referral Processed Referral: Pending Psychiatry Referral Information Referral Initiated Referral: Pending Respirator y Services Referral Information Referral Initiated Referral: Pending Ophthalmol ogy Referral Information Referral Initiated Referral: [facility]: [phone] [facility] [address] [employer] placed a call out to the patient to notify her that it has been recommended that she be seen by a urologist. Patient agreed to be seen, does not have a provider of choice and no transportation issues. [employer] faxed referral and clinical notes to [facility] in [place], [place] near the patient's home. Patient to [...] seen and prefers a provider in the [place] or [place] area. [employer] placed a call out to everyone listed in the area and the only location that was able to accept the patient's insurance was [address] [id number] and spoke with Maylin. Maylin asked that the patient's referral, face sheet and visit notes be faxed to . [employer] faxed over requested documents. Patient appointment confirmation letter generated and mailed to her home address. Patient to call to schedule an appointment. Processed Referral: [facility]: [phone] [facility] [address] [place], [place] [id number] Patient notified that it has been advised that she be seen by Neurology. Patient agreed to be seen and prefers to be seen by a provider in the [place], [place] area. Patient denies any concerns with transportation, and prefers to schedule her own appointment. [employer] placed a call out to [facility] and spoke with [...]
--- OUTSIDE RECORDS SUMMARY | 2024-01-03 23:28 | XMS_ITS | CCD ---
Author Name Leena Culver NP Address [address] [place] [address] [place] [id number] Phone Organization [facility] Phone Care Team Providers Care Webbing Weaver Name Role Phone Anna Culver NP Primary Care Provider Unav ailable Unavailable Chronic Care Management Unavaila ble Summary Purpose DataExchange Insurance Providers Payer name Policy type / Coverage type Covered republican ID Effective Begin Date Effective End Date SUKI MAYO [id number] Unknown Unknown Family history Mother Diagnosis Age [...] Unknown Disability 05/31/[address]: 853950346 Has never s moked or chewed tobacco 05/31/[address]: 767043222 Never drinks alco hol 05/31/2018 Has the patient ever used illegal drugs? Unknown Has never used illegal drugs 05/31/2018 DNR Order/ Advanced Directive Unknown Full Code 05/31/2018 Allergies, Adverse Reactions, Alerts Substance Reaction Codes Entered Date Inactivated Date Status OxyContin itch, RxNorm: 388970 01/13/2021 No Inactive Da te Active *No known food allergies Unknown 09/06/2018 No I nactive Date Active Methylprednisolone hives RxNorm: 6902 09/06/2018 No Inac tive Date Active Problems Condition Codes Effective Dates Condition St atus Impetigo ICD-10: L01.00 ICD-9: 684 10/21/2023 Active Major depression, recurrent ICD-10: F33. 9 ICD-9: 296.30 06/23/2022 Active Type 2 diabetes mellitus wit h hyperglycemia, without long-term current use of insulin ICD-10: E11.65 ICD-9: 250.00 08/05/2023 Active Hypertensive heart disease w ithout heart failure ICD-10: I11.9 ICD-9: 402.90 12/03/2021 Active Type 2 diabetes mellitus wit h peripheral neuropathy ICD-10: E11.42 ICD-9: 250.60 11/28/2019 Active Upper respiratory infection ICD-10: J06. 9 ICD-9: 465.9 09/15/2023 Active Encounter for immunization ICD-10: Z23 ICD-9: V04.81 08/05/2023 Active Right foot pain ICD-10: M79.671 ICD-9: 729.5 08/05/2023 Active Adult BMI 50.0-59.9 kg/sq m [...] 784.0 10/03/2018 Inactive Other jail (current) dr sharma therapy ICD-10: Z79.899 ICD-9: V58.69 04/25/2019 Inactive Type 2 diabetes mellitus wit hout complications ICD-10: E11.9 ICD-9: 250.00 10/03/2018 Inactive Wheezing ICD-10: R06.2 ICD-9: 786.07 08/08/2018 Inactive Abnormal urine finding ICD-10: R82.90 ICD-9: 791.9 09/24/2020 Resolved Abrasion of toe ICD-10: S90.416A ICD-9: 917.0 02/14/2020 Resolved [facility] ICD-10: H10.029 ICD-9: 372.03 12/29/2019 Resolved [...] Instructions hydrocortisone 2.5 % topical cream RxNorm: 917185 Apply Application Topical two times a day a thin layer to the affected area(s) 024 No Stop Date Active amoxicillin 500 mg tablet RxNorm: 682043 Take 1 Tablet(s) Oral two times a day 024 2023 Inactive omeprazole 40 mg capsule,delayed release RxNorm: 072615 Take 1 Capsule(s) Oral HS 024 2023 Active Januvia 100 mg tablet RxNorm: 304622 Take 1 Tablet(s) Oral every day 023 2023 Active amoxicillin 250 mg capsule RxNorm: 111788 Take 1 Capsule(s) Oral three times a day 023 2022 Inactive amoxicillin 500 mg tablet RxNorm: 552696 Take 1 Tablet(s) Oral three times a day 2022 Inactive Ozempic 1 mg/dose (4 mg/3 mL) subcutaneous pen injector RxNorm: 1495929 INJECT 1 UNITS DOSE SUBCUTANEOUSLY ON TUESDAY OF EACH WEEK 2023 Active MED IS ON B/O omeprazole 40 mg capsule,delayed release RxNorm: 186580 Take 1 Capsule(s) Oral HS 023 2022 Inactive Januvia 50 mg tablet RxNorm: 721709 Take 1 Tablet(s) Oral two times a day 023 2023 Inactive famotidine 20 mg tablet RxNorm: 524228 TAKE 1 TABLET BY MOUTH EACH MORNING 023 2023 Active Januvia 25 mg tablet RxNorm: 133304 Take 1 Tablet(s) Oral every day 023 2022 Inactive Ozempic 1 mg/dose (4 mg/3 mL) subcutaneous pen injector RxNorm: 2415922 INJECT 1 UNITS DOSE SUBCUTANEOUSLY ON TUESDAY OF EACH WEEK 023 2022 Inactive cetirizine 10 mg tablet RxNorm: 3299349 TAKE (1) TABLET BY MOUTH DAILY 023 2023 Inactive amoxicillin 500 mg tablet RxNorm: 407815 Take 1 Tablet(s) Oral two times a day 023 2022 Inactive omeprazole 40 mg capsule,delayed release RxNorm: 419480 Take 1 Capsule(s) Oral at bed time 023 2022 Inactive Easy Touch Alcohol Prep Pads RxNorm: 706371 USE EACH MORNING 023 2024 Active montelukast 10 mg tablet RxNorm: 666657 Take 1 Tablet(s) Oral every day 023 2022 Inactive gabapentin 300 mg capsule RxNorm: 288024 Take 1 Capsule(s) Oral three times a day 023 2022 Inactive metformin ER 500 mg 24 hr tablet,extended release RxNorm: 8094717 Take 1 Tablet(s) Oral every day with the evening meal 023 2022 Inactive famotidine 20 mg tablet RxNorm: 801990 Take 1 Tablet(s) Oral every morning 023 2022 Inactive levothyroxine 50 mcg tablet RxNorm: 512905 Take 1 Tablet(s) Oral every day 023 [address] [facility]: Approval Requested hydrochlorothiazide 25 mg tablet RxNorm: 153325 Take 1 Tablet(s) Oral every day 023 [address] [facility]: Approval Requested atorvastatin 20 mg tablet RxNorm: 799282 Take 1 Tablet(s) Oral every night at bedtime 023 2023 Active Macrobid 100 mg capsule RxNorm: 052969 1 Capsule(s) Oral every 12 hours with food 023 2022 Inactive omeprazole 40 mg capsule,delayed release RxNorm: 593112 Take 1 Capsule(s) Oral every night at bedtime 023 2022 Inactive trazodone 50 mg tablet RxNorm: 158339 Administer 1 Tablet(s) Oral every night at bedtime 023 No Stop Date Active cholecalciferol (vitamin D3) 50 mcg (2,000 unit) tablet RxNorm: 842732 Take 1 Tablet(s) Oral every day 023 2023 Active Ozempic 1 mg/dose (4 mg/3 mL) subcutaneous pen injector RxNorm: 9956426 USE 1 UNIT DOSE SUBCUTANEOUSLY ON TUE OF EACH WEEK 023 2022 Inactive lisinopril 2.5 mg tablet RxNorm: 023332 Take 1 Tablet(s) Oral every day 023 [address] [facility]: Dr. Zapata Requested Ozempic 1 mg/dose (4 mg/3 mL) subcutaneous pen injector RxNorm: 2376793 USE 1 UNIT DOSE SUBCUTANEOUSLY ON TUE OF EACH WEEK 023 2022 Inactive omeprazole 40 mg capsule,delayed release RxNorm: 288313 Take 1 Capsule(s) Oral every night at bedtime 023 2022 Inactive gabapentin 300 mg capsule RxNorm: 252405 Take 1 Capsule(s) Oral three times a day 023 2022 Inactive montelukast 10 mg tablet RxNorm: 255515 Take 1 Tablet(s) Oral every day 023 2022 Inactive omeprazole 20 mg capsule,delayed release RxNorm: 431946 Take 1 Capsule(s) Oral every evening 022 2022 Inactive Alcohol Prep Pads RxNorm: 106471 USE EACH MORNING 022 2021 Inactive E11.42 clotrimazole 1 % topical cream RxNorm: 413309 Apply 1 Application Topical two times a day as needed apply to affected area(s) twice daily until healed 022 2021 Inactive Victoza 2-Sebastián 0.6 mg/0.1 mL (18 mg/3 mL) subcutaneous pen injector RxNorm: 288370 Inject 0.6-1.8 Milligram(s) Subcutaneous once a week Inject 0.6mg/0.1ml week one, 1.2mg/0.2ml week two, 1.8/0.3ml weekly thereafter 022 2021 Inactive ibuprofen 800 mg tablet RxNorm: 548753 Take 1 Tablet(s) Oral Q8H as needed for pain take with food No Stop Date Active Ozempic 1 mg/dose (4 mg/3 mL) subcutaneous pen injector RxNorm: 9228759 Take 1 Unit Dose Subcutaneous QWeek Tuesday2021 Inactive lisinopril 2.5 mg tablet RxNorm: 930415 Take 1 Tablet(s) Oral every day 2021 Inactive lisinopril 2.5 mg tablet RxNorm: 858524 Take 1 Tablet(s) Oral every day 022 2022 Inactive hydrochlorothiazide 25 mg tablet RxNorm: 711794 Take 1 Tablet(s) Oral every day 2021 Inactive Ozempic 1 mg/dose (4 mg/3 mL) subcutaneous pen injector RxNorm: 4855252 Take 1 Unit Dose Subcutaneous QWeek 2021 Inactive famotidine 20 mg tablet RxNorm: 408640 Take 1 Tablet(s) Oral every morning 2021 Inactive levothyroxine 50 mcg tablet RxNorm: 209344 Take 1 Tablet(s) Oral every day 2021 Inactive atorvastatin 20 mg tablet RxNorm: 508384 Take 1 Tablet(s) Oral every night at bedtime 2021 Inactive Cleocin T 1 % lotion RxNorm: 222225 Take 2 Gram(s) Topical every day 2021 Inactive Cleocin T 1 % lotion RxNorm: 088273 Take 2 Gram(s) Topical every day 022 2021 Inactive Ozempic 1 mg/dose (4 mg/3 mL) subcutaneous pen injector RxNorm: 4942467 Take 1 Unit Dose Subcutaneous QWeek 022 2021 Inactive Ozempic 0.25 mg or 0.5 mg (2 mg/1.5 mL) subcutaneous pen injector RxNorm: 7583140 INJECT 0.5 MGS SUBCUTANEOUSLY EVERY WEEK 2021 Inactive omeprazole 20 mg capsule,delayed release RxNorm: 958234 Take 1 Capsule(s) Oral every evening 022 2021 Inactive levothyroxine 50 mcg tablet RxNorm: 258364 Take 1 Tablet(s) Oral every day 2021 Inactive atorvastatin 20 mg tablet RxNorm: 435900 Take 1 Tablet(s) Oral every night at bedtime 2021 Inactive This refill negates all other refills of this medication lisinopril 2.5 mg tablet RxNorm: 967539 Take 1 Tablet(s) Oral every day 022 2021 Inactive gabapentin 300 mg capsule RxNorm: 203789 Take 1 Capsule(s) Oral three times a day 2021 Inactive montelukast 10 mg tablet RxNorm: 818500 Take 1 Tablet(s) Oral every day 2021 Inactive Myrbetriq 50 mg tablet,extended release RxNorm: 0676424 1 Tablet(s) Oral every day No Stop Date Active cholecalciferol (vitamin D3) 50 mcg (2,000 unit) tablet RxNorm: 953232 Take 1 Tablet(s) Oral every day 2022 Inactive Ozempic 0.25 mg or 0.5 mg (2 mg/1.5 mL) subcutaneous pen injector RxNorm: 1176266 inject 0.5 milligrams subcutaneously every week 2021 Inactive Ozempic 0.25 mg or 0.5 mg (2 mg/1.5 mL) subcutaneous pen injector RxNorm: 0352969 Take 0.5 Capsule(s) Injection once a week 022 2021 Inactive omeprazole 20 mg capsule,delayed release RxNorm: 744492 Take 1 Capsule(s) Oral every evening 2020 Inactive Ozempic 0.25 mg or 0.5 mg (2 mg/1.5 mL) subcutaneous pen injector RxNorm: 5423501 Take 0.25 Milligram(s) Subcutaneous once a week 2021 Inactive Easy Touch Alcohol Prep Pads RxNorm: 382653 USE DIRECTED EACH MORNING 021 2021 Inactive Probiotic 10 billion cell capsule RxNorm: 0104601 Take 1 Capsule(s) Oral every day 2021 Inactive levothyroxine 50 mcg tablet RxNorm: 362558 Take 1 Tablet(s) Oral every day 2020 Inactive Acid Security Alarm Installer (famotidine) 20 mg tablet RxNorm: 916685 Take 1 Tablet(s) Oral every morning 2020 Inactive Heartburn Relief (famotidine) 10 mg tablet RxNorm: 224094 Take 1 Tablet(s) Oral QAM 2020 Inactive levothyroxine 50 mcg tablet RxNorm: 209865 Take 1 Tablet(s) Oral QD 2020 Inactive Singulair 10 mg tablet RxNorm: 515784 TAKE (1) TABLET BY MOUTH DAILY 2020 Inactive metformin 1,000 mg tablet RxNorm: 431034 1 Tablet(s) Oral two times a day 2021 Inactive lisinopril 2.5 mg tablet RxNorm: 486710 Take 1 Tablet(s) Oral every day 2020 Inactive hydrochlorothiazide 25 mg tablet RxNorm: 689678 Take 1 Tablet(s) Oral every day 021 2020 Inactive ondansetron 4 mg disintegrating tablet RxNorm: 945829 1 Tablet(s) Oral two times a day 021 2020 Inactive Sudafed 12 Hour 120 mg tablet,extended release RxNorm: 0846055 TAKE 1 TABLET BY MOUTH EVERY 12 HOURS NEEDED 2021 Inactive Heartburn Relief (famotidine) 10 mg tablet RxNorm: 821673 Take 1 Tablet(s) Oral every morning 021 2020 Inactive omeprazole 20 mg capsule,delayed release RxNorm: 698953 1 Capsule(s) Oral every evening 021 2020 Inactive sertraline 100 mg tablet RxNorm: 893979 2 Tablet(s) Oral every day 021 2020 Inactive levothyroxine 50 mcg tablet RxNorm: 888282 TAKE (1) TABLET BY MOUTH DAILY 021 2020 Inactive metformin 500 mg tablet RxNorm: 775953 1 Tablet(s) Oral two times a day take with 500mg to equal 1000mg 021 2020 Inactive gabapentin 300 mg capsule RxNorm: 434148 TAKE 1 CAPSULE BY MOUTH THREE TIMES A DAY 021 2020 Inactive lisinopril 2.5 mg tablet RxNorm: 711351 TAKE 1 TABLET BY MOUTH DAILY 021 2020 Inactive gabapentin 300 mg capsule RxNorm: 173298 TAKE 1 CAPSULE BY MOUTH THREE TIMES A DAY 021 2020 Inactive Singulair 10 mg tablet RxNorm: 529104 TAKE (1) TABLET BY MOUTH DAILY 021 2020 Inactive metformin 1,000 mg tablet RxNorm: 640577 1 Tablet(s) Oral two times a day 021 2020 Inactive atorvastatin 40 mg tablet RxNorm: 128099 1 Tablet(s) Oral every day 021 2020 Inactive omeprazole 20 mg capsule,delayed release RxNorm: 777300 1 Capsule(s) Oral every evening 021 2020 Inactive famotidine 10 mg tablet RxNorm: 638542 1 Tablet(s) Oral every morning 021 2020 Inactive Alcohol Prep Pads RxNorm: 396006 USE EACH MORNING 021 2020 Inactive omeprazole 20 mg capsule,delayed release RxNorm: 143072 1 Capsule(s) Oral two times a day 2021 Inactive omeprazole 20 mg capsule,delayed release RxNorm: 890163 TAKE 1 CAPSULE BY MOUTH EVERY DAY 2021 Inactive Macrobid 100 mg capsule RxNorm: 003752 1 Capsule(s) Oral every 12 hours with food 2020 Inactive omeprazole 20 mg capsule,delayed release RxNorm: 593006 1 Capsule(s) Oral two times a day 2021 Inactive metformin 1,000 mg tablet RxNorm: 417536 1 Tablet(s) Oral two times a day 2020 Inactive start on September 11, 2020 metformin 500 mg tablet RxNorm: 410757 1 Tablet(s) Oral two times a day take with 500mg to equal 1000mg 2019 Inactive gabapentin 300 mg capsule RxNorm: 049896 TAKE 1 CAPSULE BY MOUTH THREE TIMES DAILY 2020 Inactive cetirizine 10 mg tablet RxNorm: 9680075 TAKE (1) TABLET BY MOUTH DAILY 2020 Inactive metformin 500 mg tablet RxNorm: 156616 1 Tablet(s) Oral two times a day 2019 Inactive loperamide 2 mg tablet RxNorm: 107137 1 Tablet(s) Oral as needed take one tablet after each loose stool, maximum of 8 tablets in 24 hours 2021 Inactive Sudafed 12 Hour 120 mg tablet,extended release RxNorm: 1633766 TAKE 1 TABLET BY MOUTH EVERY 12 HOURS NEEDED 2019 Inactive hydrochlorothiazide 25 mg tablet RxNorm: 965140 TAKE (1) TABLET BY MOUTH EVERY DAY 2019 Inactive omeprazole 20 mg capsule,delayed release RxNorm: 007238 TAKE 1 CAPSULE BY MOUTH EVERY DAY 2020 Inactive metformin 500 mg tablet RxNorm: 458296 1 Tablet(s) Oral every day 2019 Inactive True Metrix Glucose Test Strip RxNorm: 1 Test Strips Miscellaneous two times a day as needed No Stop Date Active metformin 500 mg tablet RxNorm: 629404 1 Tablet(s) Oral every day 2019 Inactive diclofenac sodium 75 mg tablet,delayed release RxNorm: 268108 1 Tablet(s) PO BID 2021 Inactive This refill negates all other refills of this medication Sudafed 12 Hour 120 mg tablet,extended release RxNorm: 8717601 TAKE 1 TABLET BY MOUTH EVERY 12 HOURS NEEDED 2019 Inactive True Metrix Glucose Test Strip RxNorm: 1 Test Strips Miscellaneous every morning 020 2019 Inactive 100/container True Metrix Glucose Test Strip RxNorm: 1 Test Strips Miscellaneous QAM 020 2019 Inactive 100/container loperamide 2 mg tablet RxNorm: 840107 1 Tablet(s) Oral as needed take one tablet after each loose stool, maximum of 8 tablets in 24 hours 2019 Inactive cetirizine 10 mg tablet RxNorm: 4716779 1 Tablet(s) PO daily 2019 Inactive loperamide 2 mg tablet RxNorm: 992971 1 Tablet(s) Oral as needed take one tablet after each loose stool, maximum of 8 tablets in 24 hours 2019 Inactive quetiapine 100 mg tablet RxNorm: 387973 1 Tablet(s) Oral every night at bedtime 2019 Inactive levothyroxine 50 mcg tablet RxNorm: 765313 1 Tablet(s) PO daily 020 2020 Inactive gabapentin 300 mg capsule RxNorm: 018553 1 Capsule(s) PO TID 2019 Inactive levothyroxine 50 mcg tablet RxNorm: 126829 1 Tablet(s) PO daily 020 2019 Inactive lisinopril 2.5 mg tablet RxNorm: 575096 1 Tablet(s) PO daily 2020 Inactive gabapentin 300 mg capsule RxNorm: 689113 1 Capsule(s) PO TID 2019 Inactive cetirizine 10 mg tablet RxNorm: 9432258 1 Tablet(s) PO daily 2019 Inactive Singulair 10 mg tablet RxNorm: 635233 1 Tablet(s) PO daily 2020 Inactive gentamicin 0.3 % eye drops RxNorm: 160533 1 Drop(s) ophthalmic (eye) four times a day 2019 Inactive gentamicin 0.3 % eye drops RxNorm: 602442 1 Drop(s) ophthalmic (eye) four times a day 2019 Inactive gentamicin 0.3 % eye drops RxNorm: 333252 1 Drop(s) ophthalmic (eye) four times a day 2019 Inactive hydrochlorothiazide 25 mg tablet RxNorm: 684882 1 Tablet(s) Oral every day 2019 Inactive Sudafed 12 Hour 120 mg tablet,extended release RxNorm: 5359507 TAKE (1) TABLET BY MOUTH EVERY 12 HOURS NEEDED 2019 Inactive loperamide 2 mg tablet RxNorm: 228778 1 Tablet(s) Oral as needed take one tablet after each loose stool, maximum of 8 tablets in 24 hours 2019 Inactive loperamide 2 mg tablet RxNorm: 899071 1 Tablet(s) Oral as needed take one tablet after each loose stool, maximum of 8 tablets in 24 hours 2019 Inactive atorvastatin 40 mg tablet RxNorm: 498405 1 Tablet(s) Oral every day 2020 Inactive quetiapine 100 mg tablet RxNorm: 792895 1 Tablet(s) Oral every night at bedtime 2019 Inactive sertraline 100 mg tablet RxNorm: 742864 1 Tablet(s) Oral 2019 Inactive omeprazole 20 mg capsule,delayed release RxNorm: 181433 1 Capsule(s) Oral every day 020 2019 Inactive amoxicillin 250 mg capsule RxNorm: 986779 1 Capsule(s) Oral three times a day 2019 Inactive multivitamin with iron-mineral tablet RxNorm: 1 Tablet(s) Oral every day 020 2021 Inactive cetirizine 10 mg tablet RxNorm: 6858072 1 Tablet(s) PO daily 2019 Inactive This refill negates all other refills of this medication. Please do not auto refill Singulair 10 mg tablet RxNorm: 509991 1 Tablet(s) PO daily 2019 Inactive This refill negates all other refills of this medication gabapentin 300 mg capsule RxNorm: 927757 1 Capsule(s) PO TID 2019 Inactive lisinopril 2.5 mg tablet RxNorm: 997338 1 Tablet(s) PO daily 2019 Inactive levothyroxine 50 mcg tablet RxNorm: 659867 1 Tablet(s) PO daily 2019 Inactive This refill negates all other refills of this medication hydrochlorothiazide 25 mg tablet RxNorm: 766125 1 Tablet(s) Oral every day 2019 Inactive fenugreek seed extract 500 mg capsule RxNorm: 1 Capsule(s) Oral three times a day 2021 Inactive Alcohol Prep Pads RxNorm: 780913 1 Patch TOP QAM 020 2020 Inactive loperamide 2 mg tablet RxNorm: 909869 1 Tablet(s) Oral as needed take one tablet after each loose stool not to exceed 8 tablets a day 2018 Inactive Calcium 600-D3 Plus (mag-zinc) 600 mg calcium-800 unit-50 mg tablet RxNorm: 1 Tablet(s) PO daily take an additonal tablet for itching. 019 03/01/ 2022 Inactive This refill negates all other refills of this medication TRUEplus Lancets 30 gauge RxNorm: 1 Lancets Miscellaneous QAM 019 2019 Inactive 100/box fenugreek seed extract 500 mg capsule RxNorm: 1 Capsule(s) Oral three times a day 019 2019 Inactive hydrochlorothiazide 25 mg tablet RxNorm: 023899 1 Tablet(s) Oral every day 019 2019 Inactive Sudafed 12 Hour 120 mg tablet,extended release RxNorm: 6011784 1 Tablet(s) Oral every 12 hours as needed 019 2018 Inactive omeprazole 20 mg capsule,delayed release RxNorm: 243219 1 Capsule(s) Oral every day 019 2019 Inactive Sudafed 12 Hour 120 mg tablet,extended release RxNorm: 1829397 1 Tablet(s) Oral every 12 hours as needed 019 2018 Inactive pantoprazole 40 mg tablet,delayed release RxNorm: 647921 1 Tablet(s) Oral every day 019 2018 Inactive discontinue any other H2Blkr. and PPI albuterol sulfate 2.5 mg/3 mL (0.083 %) solution for nebulization RxNorm: 862530 1 Vial Inhalation every four hours as needed as needed for dyspnea 019 2019 Inactive 60/box. This refill negates all other refills of this medication. Please do not fill early. Please do not auto refill. Symbicort 160 mcg-4.5 mcg/actuation HFA aerosol inhaler RxNorm: 5949291 2 Puff(s) INH BID 019 No Stop Date Active Alcohol Prep Pads RxNorm: 400990 1 Patch TOP QAM 019 2019 Inactive Ventolin HFA 90 mcg/actuation aerosol inhaler RxNorm: 892859 2 Puff(s) INH QID 019 2019 Inactive Please do not fill early. Please do not auto refill. This refill negates all other refills of this medication True Metrix Glucose Test Strip RxNorm: 1 Test Strips Miscellaneous QAM 019 2019 Inactive 100/container atorvastatin 40 mg tablet RxNorm: 326558 1 Tablet(s) Oral every day 019 2019 Inactive buspirone 7.5 mg tablet RxNorm: 101748 1 Tablet(s) PO BID 019 2020 Inactive This refill negates all other refills of this medication hydrochlorothiazide 12.5 mg tablet RxNorm: 259909 1 Tablet(s) PO QAM 019 2019 Inactive levmetamfetamine 50 mg nasal inhaler RxNorm: 1 Unit(s) NASAL Q3-4H Do not use more than every 3 hours or 8 times/24hours 019 2021 Inactive Please do not auto refill. This refill negates all other refills of this medication Ventolin HFA 90 mcg/actuation aerosol inhaler RxNorm: 690196 2 Puff(s) INH QID 019 2018 Inactive Please do not fill early. Please do not auto refill. This refill negates all other refills of this medication Singulair 10 mg tablet RxNorm: 861799 1 Tablet(s) PO daily 019 2019 Inactive This refill negates all other refills of this medication cetirizine 10 mg tablet RxNorm: 8534974 1 Tablet(s) PO daily 019 2019 Inactive This refill negates all other refills of this medication. Please do not auto refill levothyroxine 50 mcg tablet RxNorm: 364997 1 Tablet(s) PO daily 019 2019 Inactive This refill negates all other refills of this medication diclofenac sodium 75 mg tablet,delayed release RxNorm: 245141 1 Tablet(s) PO BID 019 2019 Inactive This refill negates all other refills of this medication ranitidine 150 mg tablet RxNorm: 507289 1 Tablet(s) PO BID 019 2018 Inactive This refill negates all other refills of this medication Calcium 600-D3 Plus (mag-zinc) 600 mg calcium-800 unit-50 mg tablet RxNorm: 1 Tablet(s) PO daily take an additonal tablet for itching. 019 2018 Inactive This refill negates all other refills of this medication albuterol sulfate 2.5 mg/3 mL (0.083 %) solution for nebulization RxNorm: 564972 1 Vial INH QID 2018 Inactive 60/box. This refill negates all other refills of this medication. Please do not fill early. Please do not auto refill. lisinopril 2.5 mg tablet RxNorm: 541519 1 Tablet(s) PO daily 2019 Inactive gabapentin 300 mg capsule RxNorm: 554623 1 Capsule(s) PO TID 019 2019 Inactive atorvastatin 20 mg tablet RxNorm: 064886 1 Tablet(s) PO QHS 2018 Inactive This refill negates all other refills of this medication TRUEplus Lancets 30 gauge RxNorm: 1 Lancets Miscellaneous QAM 019 2018 Inactive 100/box gabapentin 300 mg capsule RxNorm: 533779 1 Capsule(s) PO TID 019 2018 Inactive Flintstones Complete (iron) 18 mg iron chewable tablet RxNorm: 1 Tablet(s) PO daily 019 2021 Inactive This refill negates all other refills of this medication gabapentin 300 mg capsule RxNorm: 052750 1 Capsule(s) PO TID as needed 2018 Inactive True Metrix Glucose Test Strip RxNorm: 1 Test Strips Miscellaneous QAM 019 2018 Inactive 100/container Alcohol Prep Pads RxNorm: 929105 1 Patch TOP QAM 019 2018 Inactive TRUEplus Lancets 30 gauge RxNorm: 1 Lancets Miscellaneous QAM 019 2018 Inactive 100/box lisinopril 2.5 mg tablet RxNorm: 843567 1 Tablet(s) PO daily 019 2018 Inactive ranitidine 150 mg tablet RxNorm: 290910 1 Tablet(s) PO BID 019 2018 Inactive This refill negates all other refills of this medication albuterol sulfate 2.5 mg/3 mL (0.083 %) solution for nebulization RxNorm: 780732 1 Vial INH QID 019 2018 Inactive [...] this medication gabapentin 300 mg capsule RxNorm: 120038 1 Capsule(s) PO TID as needed 019 2018 Inactive atorvastatin 20 mg tablet RxNorm: 949557 1 Tablet(s) PO QHS 019 2018 Inactive This refill negates all other refills of this medication trazodone 50 mg tablet RxNorm: 146498 1 Tablet(s) PO QHS 019 2018 Inactive This refill negates all other refills of this medication Ventolin HFA 90 mcg/actuation aerosol inhaler RxNorm: 568435 2 Puff(s) INH QID 019 2018 Inactive Please do not fill early. Please do not auto refill. This refill negates all other refills of this medication Calcium 600-D3 Plus 600 mg calcium-800 unit-50 mg tablet RxNorm: 1 Tablet(s) PO daily take an additonal tablet for itching. 019 2018 Inactive This refill negates all other refills of this medication Singulair 10 mg tablet RxNorm: 021539 1 Tablet(s) PO daily 019 2018 Inactive This refill negates all other refills of this medication buspirone 7.5 mg tablet RxNorm: 671640 1 Tablet(s) PO BID 019 2018 Inactive This refill negates all other refills of this medication diclofenac sodium 75 mg tablet,delayed release RxNorm: 817701 1 Tablet(s) PO BID 019 2018 Inactive This refill negates all other refills of this medication hydrochlorothiazide 12.5 mg tablet RxNorm: 961596 1 Tablet(s) PO QAM 019 2018 Inactive metoprolol succinate ER 50 mg tablet,extended release 24 hr RxNorm: 468644 1 Tablet(s) PO daily 019 2018 Inactive This refill negates all other refills of this medication levothyroxine 50 mcg tablet RxNorm: 533592 1 Tablet(s) PO daily 019 2018 Inactive This refill negates all other refills of this medication cetirizine 10 mg tablet RxNorm: 9549102 1 Tablet(s) PO daily 019 2018 Inactive This refill negates all other refills of this medication. Please do not auto refill Flintstones Complete (iron) 18 mg iron chewable tablet RxNorm: 1 Tablet(s) PO daily 019 2018 Inactive This refill negates all other refills of this medication buspirone 7.5 mg tablet RxNorm: 196858 1 Tablet(s) PO BID 2018 Inactive cetirizine 10 mg tablet RxNorm: 2067813 1 Tablet(s) PO daily 2018 Inactive Guaiasorb DM 10 mg-100 mg/5 mL oral liquid RxNorm: 558626 10 Milliliter(s) PO As needed every 4 hr 2018 Inactive Vicks Vaporub 4.7 %-1.2 %-2.6 % topical ointment RxNorm: 4501969 1 Application TOP TID 018 2018 Inactive levmetamfetamine 50 mg nasal inhaler RxNorm: 1 Unit(s) NASAL Q3-4H 018 2017 Inactive sertraline 50 mg tablet RxNorm: 660395 1 Tablet(s) PO daily 018 2018 Inactive Please note dose trazodone 50 mg tablet RxNorm: 504201 1 Tablet(s) PO QHS 018 2018 Inactive sertraline 50 mg tablet RxNorm: 059549 1 Tablet(s) PO daily 018 2017 Inactive amoxicillin 500 mg tablet RxNorm: 892317 1 Tablet(s) PO Q12H 018 2017 Inactive albuterol sulfate 2.5 mg/3 mL (0.083 %) solution for nebulization RxNorm: 780133 1 Vial INH QID 2018 Inactive 60/box. Please do not fill early. Please do not auto refill. Prozac 10 mg capsule RxNorm: 027936 1 Capsule(s) PO daily 018 2017 Inactive buspirone 7.5 mg tablet RxNorm: 816328 1 Tablet(s) PO BID 2018 Inactive gabapentin 300 mg capsule RxNorm: 024489 1 Capsule(s) PO TID as needed 2018 Inactive hydrochlorothiazide 12.5 mg tablet RxNorm: 998386 1 Tablet(s) PO QAM 2018 Inactive ranitidine 150 mg tablet RxNorm: 040149 1 Tablet(s) PO BID 018 2018 Inactive Macrobid 100 mg capsule RxNorm: 585998 1 Capsule(s) PO Q12H 018 2017 Inactive Singulair 10 mg tablet RxNorm: 007944 1 Tablet(s) PO daily 018 2018 Inactive Ventolin HFA 90 mcg/actuation aerosol inhaler RxNorm: 0335979 2 Puff(s) INH QID 018 2018 Inactive Singulair 10 mg tablet RxNorm: 052387 1 Tablet(s) PO daily 018 2017 Inactive buspirone 7.5 mg tablet RxNorm: 015527 1 Tablet(s) PO BID 018 2017 Inactive Prozac 10 mg capsule RxNorm: 336176 1 Capsule(s) PO daily 018 2017 Inactive diclofenac sodium 75 mg tablet,delayed release RxNorm: 201484 1 Tablet(s) PO BID 018 2017 Inactive lisinopril 2.5 mg tablet RxNorm: 726371 1 Tablet(s) PO daily 018 2017 Inactive Neilmed Pediatric Sinus Rinse Refill packet RxNorm: 1 Unit Dose NASAL PRN 018 2021 Inactive metoprolol succinate ER 50 mg tablet,extended release 24 hr RxNorm: 750056 1 Tablet(s) PO daily 018 2017 Inactive levothyroxine 50 mcg tablet RxNorm: 696494 1 Tablet(s) PO daily 018 2017 Inactive TRUEplus Lancets 30 gauge RxNorm: 1 Lancets Miscellaneous QAM 018 2017 Inactive 100/box Ventolin HFA 90 mcg/actuation aerosol inhaler RxNorm: 630891 2 Puff(s) INH QID 018 2017 Inactive Aleve 220 mg capsule RxNorm: 7615447 1 Capsule(s) PO BID 018 2018 Inactive ranitidine 150 mg tablet RxNorm: 984468 1 Tablet(s) PO BID 018 2017 Inactive gabapentin 300 mg capsule RxNorm: 870318 1 Capsule(s) PO TID as needed 018 2017 Inactive atorvastatin 20 mg tablet RxNorm: 921477 1 Tablet(s) PO QHS 018 2017 Inactive True Metrix Glucose Test Strip RxNorm: 1 Test Strips Miscellaneous QAM 018 2017 Inactive 50/container Calcium 600-D3 Plus 600 mg calcium-800 unit-50 mg tablet RxNorm: 1 Tablet(s) PO daily take an additonal tablet for itching. 018 2017 Inactive hydrochlorothiazide 12.5 mg tablet RxNorm: 005973 1 Tablet(s) PO QAM 018 2017 Inactive Flintstones Complete (iron) 18 mg iron chewable tablet RxNorm: 1 Tablet(s) PO daily 018 2017 Inactive True Metrix Glucose Meter RxNorm: miscellaneous 019 2018 Inactive sertraline 50 mg tablet RxNorm: 119508 1 Tablet(s) PO daily 020 2019 Inactive loperamide 2 mg tablet RxNorm: 938993 oral 019 2018 Inactive d-mannose oral powder RxNorm: PO 018 2021 Inactive Symbicort 160 mcg-4.5 mcg/actuation HFA aerosol inhaler RxNorm: 2188143 2 Puff(s) INH BID 2018 Inactive Medication Administered No Medication Administered data Procedures Procedure Codes Date Patient Health Questionnaire CPT-4: DPHQ Electrocardiogram CPT-4: 10122 06/24/2023 Urinalysis, dip stick CPT-4: 39263 05/04/2023 [place] Assessment CPT-4: DSWA 01/02 Fall Risk Assessment CPT-4: DFRA 01/27/2023 Hypertension CPT-4: HTN 01/27/2023 Patient Health Questionnaire CPT-4: DPHQ Pain Screening CPT-4: PAS 2022 Tobacco Assessment/Screening CPT-4: TCA Hypertension CPT-4: HTN 08/17/2022 [place] Assessment CPT-4: DSWA 04/02 Patient [...] CPT-4: VACP Fall Risk Assessment SNOMED CT: 23175003 4 CPT-4: DFRA 01/13/2021 [place] Assessment CPT-4: DSWA 12/01 Urinalysis, dip stick CPT-4: 61538 09/24/2020 Patient Health Questionnaire CPT-4: DPHQ Electrocardiogram CPT-4: 16811 05/14/2020 Tobacco Assessment/Screening CPT-4: TCA Fall Risk Assessment SNOMED CT: 74661242 4 CPT-4: DFRA 01/01/2020 Functional Assessment CPT-4: DFA 01/01/2020 [place] Assessment CPT-4: DSWA 11/04 Patient Health Questionnaire CPT-4: DPHQ [place] Assessment CPT-4: DSWA 10/03 Hypertension CPT-4: HTN 10/17/2019 Fall Risk Assessment SNOMED CT: 03828288 4 CPT-4: DFRA 09/19/2019 Functional Assessment CPT-4: DFA 09/19/2019 Urinalysis, dip stick CPT-4: 20812 06/21/2019 Tobacco Assessment/Screening CPT-4: TCA Patient Health Questionnaire CPT-4: DPHQ AHA/REBECCA Classification Assessment CPT-4: DAHA 04/25/2019 Controlled Substance Report CPT-4: CTRSU 04/03 Urinalysis, dip stick CPT-4: 76185 03/28/2019 Urinalysis, dip stick CPT-4: 62815 03/28/2019 I6W-Znjlhcucelkzwek CPT-4: 89676 Unknown T4C-Rlbyprmtznkrijk CPT-4: 46404 Unknown H5U-Xhxsjsmgwfvwnbs CPT-4: 28399 Unknown C6C-Cwzxxxphxgdomky CPT-4: 61782 Unknown Y8M-Sxsbajaieyqsznj CPT-4: 96923 Unknown H4K-Xpjzaagwxuboupn CPT-4: 64823 Unknown Q9P-Qhlddgnzrrhfgji CPT-4: 92521 Unknown B8K-Imubmtpolfdomds CPT-4: 39219 Unknown D1D-Qdxjgrlyrahnvkt CPT-4: 73650 Unknown T9O-Mdgljotswxqsoin CPT-4: 90640 Unknown W9M-Snvszevdvjhbtby CPT-4: 58768 Unknown V3B-Nijdwyrifftryal CPT-4: 56674 Unknown Gynecology Referral SNOMED CT: 317928836 CPT-4: R14 Unknown O7U-Mwsylzkazvnzaws CPT-4: 57573 Unknown Reason For Visit Reason For Visit Effective Dates Notes established patient visit 10/21/2023 Interim health update 10/21/2023 diabetes mellitus 10/21/2023 dermatologic complaint 10/21/2023 Encounters Encounter Performer Location Location Address Codes Magdi e ([id number]) (EST PT) DETAILED TELEHEALTH VISIT Diagnosis: Type 2 diabetes mellitus with hyperglycemia, without long-term current use of insulin[ICD10: E11.65] Diagnosis: Impetigo[ICD10: L01.00] Diagnosis: Major depression, recurrent[ICD10: F33.9] Anna Culver [place] [facility] [address] [place] [address] CPT-4: 93629 10/21/2023 Plan of Care Planned Activity Notes [...] mood stable PHQ 2 negative for depression 10/21/2023 Patient Education: Patient Medication Summary Completed 10/21/2023 Patient Education: Diabetes Complete d 10/21/2023 Appointment: Anna Culver WPtel: [address] [place] [address] E410 09/20/2023 Appointment: Anna Culver WPtel: [address] [place] [address] E410 08/05/2023 Appointment: Anna Culver WPtel: [address] [place] [address] E410 06/24/2023 Appointment: Anna Culver WPtel: [address] [place] [address] E410 05/04/2023 Appointment: Anna Culver WPtel: [address] [place] [address] E410 01/27/2023 Appointment: Anna Culver WPtel: [address] [place] [address] E410 11/23/2022 Appointment: Anna Culver WPtel: [address] [place] [address] E410 2022 Appointment: Anna Culver WPtel: [address] [place] [address] E410 08/17/2022 Appointment: Anna Culver WPtel: [address] [place] [address] E410 06/23/2022 Appointment: Chivo Bishop WPtel: [address] [place] [address] E410 04/19/2022 Appointment: Chivo Bishop WPtel: [address] [place] [address] E410 02/11/2022 Appointment: Mikey Nair WPtel: [address] [facility] 202[address] [id number] [place] E410 12/03/2021 Appointment: Chivo Bishop WPtel: [id number] [place] [address] E410 11/02/2021 Appointment: Chivo Bishop WPtel: [address] [place] [address] E410 10/07/2021 Appointment: Chivo Bishop WPtel: [address] [place] [address] ETV 09/10/2021 Appointment: Chivo Bishop WPtel: [address] [place] [address] ETV 08/13/2021 Appointment: Chivo Bishop WPtel: [address] [place] [address] ETV 07/06/2021 Appointment: Chivo Bishop WPtel: [address] [place] [address] PHTV 06/10/2021 Appointment: Anna Culver WPtel: [address] [place] [address] ETV 06/02/2021 Appointment: Chivo Bishop WPtel: [address] [place] [address] ETV 05/20/2021 Appointment: Anna Culver WPtel: [address] [place] [address] ETV 04/28/2021 Appointment: Chivo Bishop WPtel: [address] [place] [address] ETV 04/15/2021 Appointment: Anna Culver WPtel: [address] [place] [address] E410 04/01/2021 Appointment: Anna Culver WPtel: [address] [place] [address] ETV 03/24/2021 Appointment: Anna Culver WPtel: [id number] [place] [address] ETV 03/13/2021 Appointment: Anna Culver WPtel: [address] [place] [address] [place] E410 02/11/2021 Appointment: Chivo Bishop WPtel: [address] [place] [address] E410 01/29/2021 Appointment: Anna Culver WPtel: [address] [place] [address] ETV 01/13/2021 Appointment: Anna Culver WPtel: [address] [place] [address] E410 12/17/2020 Appointment: Chivo Bishop WPtel: [address] [place] [address] ETV 11/28/2020 Appointment: Anna Culver WPtel: [address] [place] [address] ETV 11/24/2020 Appointment: Anna Culver WPtel: [address] [place] [address] [place] E410 10/29/2020 Appointment: Anna Culver WPtel: [address] [place] [address] [place] E410 09/24/2020 Appointment: Anna Culver WPtel: [address] [place] [address] ETV 08/26/2020 Appointment: Anna Culver WPtel: [address] [place] [address] ETV 08/19/2020 Appointment: Anna Culver WPtel: [id number] [place] [address] ETV 07/22/2020 Appointment: Anna Culver WPtel: [address] [place] [address] ETV 07/08/2020 Appointment: Vinnie Gianna MCtel: [address] [facility] 100 [id number] [place] ECHO 07/02/2020 Appointment: Anna Culver WPtel: [address] [place] [address] E452 06/11/2020 Appointment: Anna Culver WPtel: [address] [place] [address] E452 05/14/2020 Appointment: Anna Culver WPtel: [address] [place] [address] E452 04/17/2020 Appointment: Anna Culver WPtel: [address] [place] [address] E452 03/21/2020 Appointment: Anna Culver WPtel: [address] [place] [address] E452 02/14/2020 Appointment: Anna Culver WPtel: [address] [place] [address] [place] E452 01/24/2020 Appointment: Anna Culver WPtel: [address] [place] [address] [place] E452 01/01/2020 Appointment: Anna Culver WPtel: [address] [place] [address] E452 11/28/2019 Appointment: Anna Culver WPtel: [address] [place] [address] [place] E452 10/17/2019 Appointment: Anna Culver WPtel: [address] [place], [place] [id number] E452 09/19/2019 Appointment: Sudha Hernadez WPtel: [address] [facility] [id number] E452 07/04/2019 Appointment: Sudha Hernadez WPtel: [address] [facility] [id number] E452 06/21/2019 Appointment: Charlene Oropeza WPtel: [address] [place] [address] [id number] E452 05/24/2019 Appointment: Mallory Delgado E452 04/27/2019 Appointment: Charlene Oropeza WPtel: [address] [facility] [id number] E452 04/25/2019 Appointment: Rasta Palafox WPtel: [address] [place] [address] [id number] E452 03/28/2019 Appointment: Rasta Palafox WPtel: [address] [place] [address] [id number] E452 02/14/2019 Appointment: Rasta Palafox WPtel: [address] [place] [address] [id number] E452 01/31/2019 Appointment: Rasta Palafox WPtel: [address] [place] [address] [id number] E420 12/27/2018 Referral: Pending Gynecology Referral Information Referral Processed Referral: Pending Pulmonolog y Referral Information Referral Processed Referral: Pending Psychiatry Referral Information Referral Initiated Referral: Pending Respirator y Services Referral Information Referral Initiated Referral: Pending Ophthalmology Referral Information Referral Initiated Referral: [facility] WPtel: [address] [place], [place] [id number] [place] Electrical Project Engineer placed a call out to the patient to notify her that it has been recommended that she be seen by a urologist. Patient agreed to be seen, does not have a provider of choice and no transportation issues. Electrical Project Engineer faxed referral and clinical notes to [facility] in [place], [place] near the patient's home. Patient to [...] seen and prefers a provider in the [place] or [place] area. Electrical Project Engineer placed a call out to everyone listed in the area and the only location that was able to accept the patient's insurance was [place] [address] [place] [address] and spoke with Maylin. Maylin asked that the patient's referral, face sheet and visit notes be faxed to . Electrical Project Engineer faxed over requested documents. Patient appointment confirmation letter generated and mailed to her home address. Patient to call to schedule an appointment. Processed Referral: [facility] WPtel: [address] [place] [address] Patient notified that it has been advised that she be seen by Neurology. Patient agreed to be seen and prefers to be seen by a provider in the [place], [place] area. Patient denies any concerns with transportation, and prefers to schedule her own appointment. Electrical Project Engineer placed a call out to [facility] and spoke with Neeraj P: [...] mood stable PHQ 2 negative for depression 10/21/2023 Medical Equipment No Medical Equipment data Advance Directives No Advance Directive data
--- OUTSIDE RECORDS SUMMARY | 2024-01-03 23:28 | XMS_ITS | CCD ---
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 Unknown Has never used illegal drugs 05/31/2018 DNR Order/ Advanced Directive Unknown Full Code 05/31/2018 Allergies, Adverse Reactions, Alerts Substance Reaction Codes Entered Date Inactivated Date Status OxyContin itch, RxNorm: 696050 01/13/2021 No Inactive Da te Active *No [...] ICD-10: R51 ICD-9: 784.0 10/03/2018 Inactive Other longterm (current) dr edith therapy ICD-10: Z79.899 ICD-9: V58.69 04/25/2019 Inactive Type 2 diabetes mellitus wit hout complications ICD-10: E11.9 ICD-9: 250.00 10/03/2018 Inactive Wheezing ICD-10: R06.2 ICD-9: 786.07 08/08/2018 Inactive Abnormal urine finding ICD-10: R82.90 ICD-9: 791.9 09/24/2020 Resolved Abrasion of toe ICD-10: S90.416A ICD-9: 917.0 02/14/2020 [address]olved [place] eye ICD-10: H10.029 ICD-9: 372.03 12/29/2019 Resolved [...] (4 mg/3 mL) subcutaneous pen injector RxNorm: 8620493 INJECT 1 UNITS DOSE SUBCUTANEOUSLY ON TUESDAY OF EACH WEEK 2023 Active MED IS ON B/O omeprazole 40 mg capsule,delayed release RxNorm: 036189 Take 1 Capsule(s) Oral HS 023 2022 Inactive Januvia 50 mg tablet RxNorm: 025136 Take 1 Tablet(s) Oral two times a day 023 2023 Inactive famotidine 20 mg tablet RxNorm: 150984 TAKE 1 TABLET BY MOUTH EACH MORNING 023 2023 Active Januvia 25 mg tablet RxNorm: 764741 Take 1 Tablet(s) Oral every day 023 2022 Inactive Ozempic 1 mg/dose (4 mg/3 mL) subcutaneous pen injector RxNorm: 6042161 INJECT 1 UNITS DOSE SUBCUTANEOUSLY ON TUESDAY OF EACH WEEK 2022 Inactive cetirizine 10 mg tablet RxNorm: 3390607 TAKE (1) TABLET BY MOUTH DAILY 023 2023 Inactive amoxicillin 500 mg tablet RxNorm: 865253 Take 1 Tablet(s) Oral two times a day 023 2022 Inactive omeprazole 40 mg capsule,delayed release RxNorm: 565351 Take 1 Capsule(s) Oral at bed time 023 2022 Inactive Easy Touch Alcohol Prep Pads RxNorm: 093769 USE EACH MORNING 023 2024 Active montelukast 10 mg tablet RxNorm: 334015 Take 1 Tablet(s) Oral every day 023 2022 Inactive gabapentin 300 mg capsule RxNorm: 729917 Take 1 Capsule(s) Oral three times a day 023 2022 Inactive metformin ER 500 mg 24 hr tablet,extended release RxNorm: 4753568 Take 1 Tablet(s) Oral every day with the evening meal 023 2022 Inactive famotidine 20 mg tablet RxNorm: 071488 Take 1 Tablet(s) Oral every morning 023 2022 Inactive levothyroxine 50 mcg tablet RxNorm: 961316 Take 1 Tablet(s) Oral every day 023 2023 [facility] Request[facility] hydrochlorothiazide 25 mg tablet RxNorm: 287585 Take 1 Tablet(s) Oral every day 023 2023 [facility] Request[facility] atorvastatin 20 mg tablet RxNorm: 511397 Take 1 Tablet(s) Oral every night at bedtime 023 2023 Active Macrobid 100 mg capsule RxNorm: 170003 1 Capsule(s) Oral every 12 hours with food 023 2022 Inactive omeprazole 40 mg capsule,delayed release RxNorm: 967879 Take 1 Capsule(s) Oral every night at bedtime 023 2022 Inactive trazodone 50 mg tablet RxNorm: 880804 Administer 1 Tablet(s) Oral every night at bedtime 023 No Stop Date Active cholecalciferol (vitamin D3) 50 mcg (2,000 unit) tablet RxNorm: 097437 Take 1 Tablet(s) Oral every day 023 2023 Active Ozempic 1 mg/dose (4 mg/3 mL) subcutaneous pen injector RxNorm: 2757817 USE 1 UNIT DOSE SUBCUTANEOUSLY ON TUE OF EACH WEEK 023 2022 Inactive lisinopril 2.5 mg tablet RxNorm: 630364 Take 1 Tablet(s) Oral every day 023 2022 [facility] Requested Ozempic 1 mg/dose (4 mg/3 mL) subcutaneous pen injector RxNorm: 7330301 USE 1 UNIT DOSE SUBCUTANEOUSLY ON TUE OF EACH WEEK 023 2022 Inactive omeprazole 40 mg capsule,delayed release RxNorm: 216646 Take 1 Capsule(s) Oral every night at bedtime 023 2022 Inactive gabapentin 300 mg capsule RxNorm: 296323 Take 1 Capsule(s) Oral three times a day 023 2022 Inactive montelukast 10 mg tablet RxNorm: 183205 Take 1 Tablet(s) Oral every day 023 2022 Inactive omeprazole 20 mg capsule,delayed release RxNorm: 433408 Take 1 Capsule(s) Oral every evening 022 2022 Inactive Alcohol Prep Pads RxNorm: 204713 USE EACH MORNING 022 2021 Inactive E11.42 clotrimazole 1 % topical cream RxNorm: 423405 Apply 1 Application Topical two times a day as needed apply to affected area(s) twice daily until healed 2021 Inactive Victoza 2-Sebastián 0.6 mg/0.1 mL (18 mg/3 mL) subcutaneous pen injector RxNorm: 177946 Inject 0.6-1.8 Milligram(s) Subcutaneous once a week Inject 0.6mg/0.1ml week one, 1.2mg/0.2ml week two, 1.8/0.3ml weekly thereafter 022 2021 Inactive ibuprofen 800 mg tablet RxNorm: 483036 Take 1 Tablet(s) Oral Q8H as needed for pain take with food No Stop Date Active Ozempic 1 mg/dose (4 mg/3 mL) subcutaneous pen injector RxNorm: 0988895 Take 1 Unit Dose Subcutaneous QWeek Tuesday 022 2021 Inactive lisinopril 2.5 mg tablet RxNorm: 724316 Take 1 Tablet(s) Oral every day 022 2021 Inactive lisinopril 2.5 mg tablet RxNorm: 031763 Take 1 Tablet(s) Oral every day 022 2022 Inactive hydrochlorothiazide 25 mg tablet RxNorm: 938757 Take 1 Tablet(s) Oral every day 022 2021 Inactive Ozempic 1 mg/dose (4 mg/3 mL) subcutaneous pen injector RxNorm: 2393674 Take 1 Unit Dose Subcutaneous QWeek 022 2021 Inactive famotidine 20 mg tablet RxNorm: 348004 Take 1 Tablet(s) Oral every morning 022 2021 Inactive levothyroxine 50 mcg tablet RxNorm: 392896 Take 1 Tablet(s) Oral every day 022 2021 Inactive atorvastatin 20 mg tablet RxNorm: 981395 Take 1 Tablet(s) Oral every night at bedtime 2021 Inactive Cleocin T 1 % lotion RxNorm: 172975 Take 2 Gram(s) Topical every day 022 2021 Inactive Cleocin T 1 % lotion RxNorm: 050966 Take 2 Gram(s) Topical every day 022 2021 Inactive Ozempic 1 mg/dose (4 mg/3 mL) subcutaneous pen injector RxNorm: 3483504 Take 1 Unit Dose Subcutaneous QWeek 2021 Inactive Ozempic 0.25 mg or 0.5 mg (2 mg/1.5 mL) subcutaneous pen injector RxNorm: 9894783 INJECT 0.5 MGS SUBCUTANEOUSLY EVERY WEEK 2021 Inactive omeprazole 20 mg capsule,delayed release RxNorm: 017304 Take 1 Capsule(s) Oral every evening 2021 Inactive levothyroxine 50 mcg tablet RxNorm: 017385 Take 1 Tablet(s) Oral every day 022 2021 Inactive atorvastatin 20 mg tablet RxNorm: 914770 Take 1 Tablet(s) Oral every night at bedtime 2021 Inactive This refill negates all other refills of this medication lisinopril 2.5 mg tablet RxNorm: 752457 Take 1 Tablet(s) Oral every day 2021 Inactive gabapentin 300 mg capsule RxNorm: 357701 Take 1 Capsule(s) Oral three times a day 022 2021 Inactive montelukast 10 mg tablet RxNorm: 109583 Take 1 Tablet(s) Oral every day 022 2021 Inactive Myrbetriq 50 mg tablet,extended release RxNorm: 2790029 1 Tablet(s) Oral every day No Stop Date Active cholecalciferol (vitamin D3) 50 mcg (2,000 unit) tablet RxNorm: 206202 Take 1 Tablet(s) Oral every day 2022 Inactive Ozempic 0.25 mg or 0.5 mg (2 mg/1.5 mL) subcutaneous pen injector RxNorm: 4095158 inject 0.5 milligrams subcutaneously every week 2021 Inactive Ozempic 0.25 mg or 0.5 mg (2 mg/1.5 mL) subcutaneous pen injector RxNorm: 5393119 Take 0.5 Capsule(s) Injection once a week 2021 Inactive omeprazole 20 mg capsule,delayed release RxNorm: 516285 Take 1 Capsule(s) Oral every evening 2020 Inactive Ozempic 0.25 mg or 0.5 mg (2 mg/1.5 mL) subcutaneous pen injector RxNorm: 7326678 Take 0.25 Milligram(s) Subcutaneous once a week 2021 Inactive Easy Touch Alcohol Prep Pads RxNorm: 448112 USE DIRECTED EACH MORNING 2021 Inactive Probiotic 10 billion cell capsule RxNorm: 5054540 Take 1 Capsule(s) Oral every day 2021 Inactive levothyroxine 50 mcg tablet RxNorm: 519548 Take 1 Tablet(s) Oral every day 2020 Inactive Acid Spinner Iron (famotidine) 20 mg tablet RxNorm: 604604 Take 1 Tablet(s) Oral every morning 2020 Inactive Heartburn Relief (famotidine) 10 mg tablet RxNorm: 459837 Take 1 Tablet(s) Oral QAM 2020 Inactive levothyroxine 50 mcg tablet RxNorm: 652007 Take 1 Tablet(s) Oral QD 2020 Inactive Singulair 10 mg tablet RxNorm: 823318 TAKE (1) TABLET BY MOUTH DAILY 021 2020 Inactive metformin 1,000 mg tablet RxNorm: 583590 1 Tablet(s) Oral two times a day 021 2021 Inactive lisinopril 2.5 mg tablet RxNorm: 313578 Take 1 Tablet(s) Oral every day 021 2020 Inactive hydrochlorothiazide 25 mg tablet RxNorm: 834666 Take 1 Tablet(s) Oral every day 021 2020 Inactive ondansetron 4 mg disintegrating tablet RxNorm: 891566 1 Tablet(s) Oral two times a day 021 2020 Inactive Sudafed 12 Hour 120 mg tablet,extended release RxNorm: 3104592 TAKE 1 TABLET BY MOUTH EVERY 12 HOURS NEEDED 2021 Inactive Heartburn Relief (famotidine) 10 mg tablet RxNorm: 671570 Take 1 Tablet(s) Oral every morning 021 2020 Inactive omeprazole 20 mg capsule,delayed release RxNorm: 555115 1 Capsule(s) Oral every evening 021 2020 Inactive sertraline 100 mg tablet RxNorm: 371297 2 Tablet(s) Oral every day 021 2020 Inactive levothyroxine 50 mcg tablet RxNorm: 618939 TAKE (1) TABLET BY MOUTH DAILY 021 2020 Inactive metformin 500 mg tablet RxNorm: 241015 1 Tablet(s) Oral two times a day take with 500mg to equal 1000mg 021 2020 Inactive gabapentin 300 mg capsule RxNorm: 631293 TAKE 1 CAPSULE BY MOUTH THREE TIMES A DAY 021 2020 Inactive lisinopril 2.5 mg tablet RxNorm: 659885 TAKE 1 TABLET BY MOUTH DAILY 021 2020 Inactive gabapentin 300 mg capsule RxNorm: 523272 TAKE 1 CAPSULE BY MOUTH THREE TIMES A DAY 021 2020 Inactive Singulair 10 mg tablet RxNorm: 823153 TAKE (1) TABLET BY MOUTH DAILY 021 2020 Inactive metformin 1,000 mg tablet RxNorm: 372792 1 Tablet(s) Oral two times a day 021 2020 Inactive atorvastatin 40 mg tablet RxNorm: 809499 1 Tablet(s) Oral every day 021 2020 Inactive omeprazole 20 mg capsule,delayed release RxNorm: 316998 1 Capsule(s) Oral every evening 2020 Inactive famotidine 10 mg tablet RxNorm: 943441 1 Tablet(s) Oral every morning 2020 Inactive Alcohol Prep Pads RxNorm: 482974 USE EACH MORNING 021 2020 Inactive omeprazole 20 mg capsule,delayed release RxNorm: 782338 1 Capsule(s) Oral two times a day 2021 Inactive omeprazole 20 mg capsule,delayed release RxNorm: 313589 TAKE 1 CAPSULE BY MOUTH EVERY DAY 2021 Inactive Macrobid 100 mg capsule RxNorm: 130894 1 Capsule(s) Oral every 12 hours with food 2020 Inactive omeprazole 20 mg capsule,delayed release RxNorm: 441614 1 Capsule(s) Oral two times a day 2021 Inactive metformin 1,000 mg tablet RxNorm: 480928 1 Tablet(s) Oral two times a day 2020 Inactive start on September 11, 2020 metformin 500 mg tablet RxNorm: 124013 1 Tablet(s) Oral two times a day take with 500mg to equal 1000mg 2019 Inactive gabapentin 300 mg capsule RxNorm: 422953 TAKE 1 CAPSULE BY MOUTH THREE TIMES DAILY 2020 Inactive cetirizine 10 mg tablet RxNorm: 7729241 TAKE (1) TABLET BY MOUTH DAILY 2020 Inactive metformin 500 mg tablet RxNorm: 426272 1 Tablet(s) Oral two times a day 020 2019 Inactive loperamide 2 mg tablet RxNorm: 590602 1 Tablet(s) Oral as needed take one tablet after each loose stool, maximum of 8 tablets in 24 hours 2021 Inactive Sudafed 12 Hour 120 mg tablet,extended release RxNorm: 5758150 TAKE 1 TABLET BY MOUTH EVERY 12 HOURS NEEDED 020 2019 Inactive hydrochlorothiazide 25 mg tablet RxNorm: 733477 TAKE (1) TABLET BY MOUTH EVERY DAY 020 2019 Inactive omeprazole 20 mg capsule,delayed release RxNorm: 684122 TAKE 1 CAPSULE BY MOUTH EVERY DAY 020 2020 Inactive metformin 500 mg tablet RxNorm: 382606 1 Tablet(s) Oral every day 020 2019 Inactive True Metrix Glucose Test Strip RxNorm: 1 Test Strips Miscellaneous two times a day as needed No Stop Date Active metformin 500 mg tablet RxNorm: 301416 1 Tablet(s) Oral every day 2019 Inactive diclofenac sodium 75 mg tablet,delayed release RxNorm: 859958 1 Tablet(s) PO BID 2021 Inactive This refill negates all other refills of this medication Sudafed 12 Hour 120 mg tablet,extended release RxNorm: 1773547 TAKE 1 TABLET BY MOUTH EVERY 12 HOURS NEEDED 020 2019 Inactive True Metrix Glucose Test Strip RxNorm: 1 Test Strips Miscellaneous every morning 020 2019 Inactive 100/container True Metrix Glucose Test Strip RxNorm: 1 Test Strips Miscellaneous QA 020 2019 Inactive 100/container loperamide 2 mg tablet RxNorm: 093515 1 Tablet(s) Oral as needed take one tablet after each loose stool, maximum of 8 tablets in 24 hours 020 2019 Inactive cetirizine 10 mg tablet RxNorm: 2945395 1 Tablet(s) PO daily 2019 Inactive loperamide 2 mg tablet RxNorm: 738067 1 Tablet(s) Oral as needed take one tablet after each loose stool, maximum of 8 tablets in 24 hours 2019 Inactive quetiapine 100 mg tablet RxNorm: 545944 1 Tablet(s) Oral every night at bedtime 2019 Inactive levothyroxine 50 mcg tablet RxNorm: 360330 1 Tablet(s) PO daily 2020 Inactive gabapentin 300 mg capsule RxNorm: 024610 1 Capsule(s) PO TID 2019 Inactive levothyroxine 50 mcg tablet RxNorm: 561072 1 Tablet(s) PO daily 2019 Inactive lisinopril 2.5 mg tablet RxNorm: 034574 1 Tablet(s) PO daily 2020 Inactive gabapentin 300 mg capsule RxNorm: 675924 1 Capsule(s) PO TID 2019 Inactive cetirizine 10 mg tablet RxNorm: 5209017 1 Tablet(s) PO daily 2019 Inactive Singulair 10 mg tablet RxNorm: 260535 1 Tablet(s) PO daily 2020 Inactive gentamicin 0.3 % eye drops RxNorm: 518473 1 Drop(s) ophthalmic (eye) four times a day 2019 Inactive gentamicin 0.3 % eye drops RxNorm: 705979 1 Drop(s) ophthalmic (eye) four times a day 2019 Inactive gentamicin 0.3 % eye drops RxNorm: 190220 1 Drop(s) ophthalmic (eye) four times a day 2019 Inactive hydrochlorothiazide 25 mg tablet RxNorm: 557911 1 Tablet(s) Oral every day 2019 Inactive Sudafed 12 Hour 120 mg tablet,extended release RxNorm: 0282048 TAKE (1) TABLET BY MOUTH EVERY 12 HOURS NEEDED 2019 Inactive loperamide 2 mg tablet RxNorm: 356775 1 Tablet(s) Oral as needed take one tablet after each loose stool, maximum of 8 tablets in 24 hours 020 2019 Inactive loperamide 2 mg tablet RxNorm: 864952 1 Tablet(s) Oral as needed take one tablet after each loose stool, maximum of 8 tablets in 24 hours 020 2019 Inactive atorvastatin 40 mg tablet RxNorm: 848942 1 Tablet(s) Oral every day 2020 Inactive quetiapine 100 mg tablet RxNorm: 180890 1 Tablet(s) Oral every night at bedtime 2019 Inactive sertraline 100 mg tablet RxNorm: 448619 1 Tablet(s) Oral 2019 Inactive omeprazole 20 mg capsule,delayed release RxNorm: 580984 1 Capsule(s) Oral every day 2019 Inactive amoxicillin 250 mg capsule RxNorm: 263216 1 Capsule(s) Oral three times a day 2019 Inactive multivitamin with iron-mineral tablet RxNorm: 1 Tablet(s) Oral every day 2021 Inactive cetirizine 10 mg tablet RxNorm: 0836685 1 Tablet(s) PO daily 2019 Inactive This refill negates all other refills of this medication. Please do not auto refill Singulair 10 mg tablet RxNorm: 076099 1 Tablet(s) PO daily 2019 Inactive This refill negates all other refills of this medication gabapentin 300 mg capsule RxNorm: 421973 1 Capsule(s) PO TID 2019 Inactive lisinopril 2.5 mg tablet RxNorm: 819598 1 Tablet(s) PO daily 2019 Inactive levothyroxine 50 mcg tablet RxNorm: 878824 1 Tablet(s) PO daily 2019 Inactive This refill negates all other refills of this medication hydrochlorothiazide 25 mg tablet RxNorm: 804628 1 Tablet(s) Oral every day 2019 Inactive fenugreek seed extract 500 mg capsule RxNorm: 1 Capsule(s) Oral three times a day 2021 Inactive Alcohol Prep Pads RxNorm: 893897 1 Patch TOP QAM 2020 Inactive loperamide 2 mg tablet RxNorm: 603010 1 Tablet(s) Oral as needed take one [...] 2019 Inactive hydrochlorothiazide 25 mg tablet RxNorm: 140336 1 Tablet(s) Oral every day 2019 Inactive Sudafed 12 Hour 120 mg tablet,extended release RxNorm: 3996664 1 Tablet(s) Oral every 12 hours as needed 2018 Inactive omeprazole 20 mg capsule,delayed release RxNorm: 023884 1 Capsule(s) Oral every day 2019 Inactive Sudafed 12 Hour 120 mg tablet,extended release RxNorm: 1498785 1 Tablet(s) Oral every 12 hours as needed 019 2018 Inactive pantoprazole 40 mg tablet,delayed release RxNorm: 760524 1 Tablet(s) Oral every day 2018 Inactive discontinue any other H2Blkr. and PPI albuterol sulfate 2.5 mg/3 mL (0.083 %) solution for nebulization RxNorm: 240167 1 Vial Inhalation every four hours as needed as needed for dyspnea 2019 Inactive 60/box. This refill negates all other refills of this medication. Please do not fill early. Please do not auto refill. Symbicort 160 mcg-4.5 mcg/actuation HFA aerosol inhaler RxNorm: 5224210 2 Puff(s) INH BID No Stop Date Active Alcohol Prep Pads RxNorm: 582209 1 Patch TOP QAM 019 2019 Inactive Ventolin HFA 90 mcg/actuation aerosol inhaler RxNorm: 002842 2 Puff(s) INH QID 019 2019 Inactive Please do not fill early. Please do not auto refill. This refill negates all other refills of this medication True Metrix Glucose Test Strip RxNorm: 1 Test Strips Miscellaneous QA 019 2019 Inactive 100/container atorvastatin 40 mg tablet RxNorm: 492585 1 Tablet(s) Oral every day 019 2019 Inactive buspirone 7.5 mg tablet RxNorm: 133229 1 Tablet(s) PO BID 019 2020 Inactive This refill negates all other refills of this medication hydrochlorothiazide 12.5 mg tablet RxNorm: 559550 1 Tablet(s) PO QAM 019 2019 Inactive levmetamfetamine 50 mg nasal inhaler RxNorm: 1 Unit(s) NASAL Q3-4H Do not use more than every 3 hours or 8 times/24hours 019 2021 Inactive Please do not auto refill. This refill negates all other refills of this medication Ventolin HFA 90 mcg/actuation aerosol inhaler RxNorm: 725598 2 Puff(s) INH QID 019 2018 Inactive Please do not fill early. Please do not auto refill. This refill negates all other refills of this medication Singulair 10 mg tablet RxNorm: 728494 1 Tablet(s) PO daily 019 2019 Inactive This refill negates all other refills of this medication cetirizine 10 mg tablet RxNorm: 1214451 1 Tablet(s) PO daily 019 2019 Inactive This refill negates all other refills of this medication. Please do not auto refill levothyroxine 50 mcg tablet RxNorm: 254004 1 Tablet(s) PO daily 019 2019 Inactive This refill negates all other refills of this medication diclofenac sodium 75 mg tablet,delayed release RxNorm: 445001 1 Tablet(s) PO BID 019 2019 Inactive This refill negates all other refills of this medication ranitidine 150 mg tablet RxNorm: 606083 1 Tablet(s) PO BID 019 2018 Inactive This refill negates all other refills of this medication Calcium 600-D3 Plus (mag-zinc) 600 mg calcium-800 unit-50 mg tablet RxNorm: 1 Tablet(s) PO daily take an additonal tablet for itching. 2018 Inactive This refill negates all other refills of this medication albuterol sulfate 2.5 mg/3 mL (0.083 %) solution for nebulization RxNorm: 282987 1 Vial INH QID 2018 Inactive 60/box. This refill negates all other refills of this medication. Please do not fill early. Please do not auto refill. lisinopril 2.5 mg tablet RxNorm: 173796 1 Tablet(s) PO daily 019 2019 Inactive gabapentin 300 mg capsule RxNorm: 728165 1 Capsule(s) PO TID 019 2019 Inactive atorvastatin 20 mg tablet RxNorm: 062847 1 Tablet(s) PO QHS 019 2018 Inactive This refill negates all other refills of this medication TRUEplus Lancets 30 gauge RxNorm: 1 Lancets Miscellaneous QAM 019 2018 Inactive 100/box gabapentin 300 mg capsule RxNorm: 489770 1 Capsule(s) PO TID 019 2018 Inactive Flmarkmaury Complete (iron) 18 mg iron chewable tablet RxNorm: 1 Tablet(s) PO daily 019 2021 Inactive This refill negates all other refills of this medication gabapentin 300 mg capsule RxNorm: 877975 1 Capsule(s) PO TID as needed 2018 Inactive True Metrix Glucose Test Strip RxNorm: 1 Test Strips Miscellaneous QAM 019 2018 Inactive 100/container Alcohol Prep Pads RxNorm: 587218 1 Patch TOP QAM 2018 Inactive TRUEplus Lancets 30 gauge RxNorm: 1 Lancets Miscellaneous QAM 2018 Inactive 100/box lisinopril 2.5 mg tablet RxNorm: 130828 1 Tablet(s) PO daily 2018 Inactive ranitidine 150 mg tablet RxNorm: 460780 1 Tablet(s) PO BID 2018 Inactive This refill negates all other refills of this medication albuterol sulfate 2.5 mg/3 mL (0.083 %) solution for nebulization RxNorm: 117237 1 Vial INH QID 019 2018 Inactive [...] this medication gabapentin 300 mg capsule RxNorm: 049330 1 Capsule(s) PO TID as needed 019 2018 Inactive atorvastatin 20 mg tablet RxNorm: 126552 1 Tablet(s) PO QHS 019 2018 Inactive This refill negates all other refills of this medication trazodone 50 mg tablet RxNorm: 474310 1 Tablet(s) PO QHS 019 2018 Inactive This refill negates all other refills of this medication Ventolin HFA 90 mcg/actuation aerosol inhaler RxNorm: 476212 2 Puff(s) INH QID 019 2018 Inactive Please do not fill early. Please do not auto refill. This refill negates all other refills of this medication Calcium 600-D3 Plus 600 mg calcium-800 unit-50 mg tablet RxNorm: 1 Tablet(s) PO daily take an additonal tablet for itching. 019 2018 Inactive This refill negates all other refills of this medication Singulair 10 mg tablet RxNorm: 844931 1 Tablet(s) PO daily 019 2018 Inactive This refill negates all other refills of this medication buspirone 7.5 mg tablet RxNorm: 551503 1 Tablet(s) PO BID 019 2018 Inactive This refill negates all other refills of this medication diclofenac sodium 75 mg tablet,delayed release RxNorm: 298055 1 Tablet(s) PO BID 019 2018 Inactive This refill negates all other refills of this medication hydrochlorothiazide 12.5 mg tablet RxNorm: 944774 1 Tablet(s) PO QAM 019 2018 Inactive metoprolol succinate ER 50 mg tablet,extended release 24 hr RxNorm: 848425 1 Tablet(s) PO daily 019 2018 Inactive This refill negates all other refills of this medication levothyroxine 50 mcg tablet RxNorm: 332555 1 Tablet(s) PO daily 019 2018 Inactive This refill negates all other refills of this medication cetirizine 10 mg tablet RxNorm: 8838446 1 Tablet(s) PO daily 019 2018 Inactive This refill negates all other refills of this medication. Please do not auto refill Flintstones Complete (iron) 18 mg iron chewable tablet RxNorm: 1 Tablet(s) PO daily 019 2018 Inactive This refill negates all other refills of this medication buspirone 7.5 mg tablet RxNorm: 811900 1 Tablet(s) PO BID 019 2018 Inactive cetirizine 10 mg tablet RxNorm: 1411418 1 Tablet(s) PO daily 2018 Inactive Guaiasorb DM 10 mg-100 mg/5 mL oral liquid RxNorm: 338131 10 Milliliter(s) PO As needed every 4 hr 2018 Inactive Vicks Vaporub 4.7 %-1.2 %-2.6 % topical ointment RxNorm: 2203584 1 Application TOP TID 2018 Inactive levmetamfetamine 50 mg nasal inhaler RxNorm: 1 Unit(s) NASAL Q3-4H 2017 Inactive sertraline 50 mg tablet RxNorm: 866209 1 Tablet(s) PO daily 2018 Inactive Please note dose trazodone 50 mg tablet RxNorm: 866374 1 Tablet(s) PO QHS 018 2018 Inactive sertraline 50 mg tablet RxNorm: 662078 1 Tablet(s) PO daily 2017 Inactive amoxicillin 500 mg tablet RxNorm: 430194 1 Tablet(s) PO Q12H 2017 Inactive albuterol sulfate 2.5 mg/3 mL (0.083 %) solution for nebulization RxNorm: 399226 1 Vial INH QID 2018 Inactive 60/box. Please do not fill early. Please do not auto refill. Prozac 10 mg capsule RxNorm: 596360 1 Capsule(s) PO daily 018 2017 Inactive buspirone 7.5 mg tablet RxNorm: 573279 1 Tablet(s) PO BID 018 2018 Inactive gabapentin 300 mg capsule RxNorm: 904579 1 Capsule(s) PO TID as needed 018 2018 Inactive hydrochlorothiazide 12.5 mg tablet RxNorm: 319876 1 Tablet(s) PO QAM 018 2018 Inactive ranitidine 150 mg tablet RxNorm: 027602 1 Tablet(s) PO BID 018 2018 Inactive Macrobid 100 mg capsule RxNorm: 145214 1 Capsule(s) PO Q12H 018 2017 Inactive Singulair 10 mg tablet RxNorm: 585079 1 Tablet(s) PO daily 018 2018 Inactive Ventolin HFA 90 mcg/actuation aerosol inhaler RxNorm: 8900212 2 Puff(s) INH QID 018 2018 Inactive Singulair 10 mg tablet RxNorm: 552128 1 Tablet(s) PO daily 018 2017 Inactive buspirone 7.5 mg tablet RxNorm: 974975 1 Tablet(s) PO BID 018 2017 Inactive Prozac 10 mg capsule RxNorm: 334861 1 Capsule(s) PO daily 018 2017 Inactive diclofenac sodium 75 mg tablet,delayed release RxNorm: 195364 1 Tablet(s) PO BID 018 2017 Inactive lisinopril 2.5 mg tablet RxNorm: 968480 1 Tablet(s) PO daily 018 2017 Inactive Neilmed Pediatric Sinus Rinse Refill packet RxNorm: 1 Unit Dose NASAL PRN 018 2021 Inactive metoprolol succinate ER 50 mg tablet,extended release 24 hr RxNorm: 011468 1 Tablet(s) PO daily 018 2017 Inactive levothyroxine 50 mcg tablet RxNorm: 922465 1 Tablet(s) PO daily 018 2017 Inactive TRUEplus Lancets 30 gauge RxNorm: 1 Lancets Miscellaneous QAM 018 2017 Inactive 100/box Ventolin HFA 90 mcg/actuation aerosol inhaler RxNorm: 792049 2 Puff(s) INH QID 018 2017 Inactive Aleve 220 mg capsule RxNorm: 7749822 1 Capsule(s) PO BID 018 2018 Inactive ranitidine 150 mg tablet RxNorm: 508945 1 Tablet(s) PO BID 018 2017 Inactive gabapentin 300 mg capsule RxNorm: 718726 1 Capsule(s) PO TID as needed 018 2017 Inactive atorvastatin 20 mg tablet RxNorm: 823329 1 Tablet(s) PO QHS 018 2017 Inactive True Metrix Glucose Test Strip RxNorm: 1 Test Strips Miscellaneous QAM 018 2017 Inactive 50/container Calcium 600-D3 Plus 600 mg calcium-800 unit-50 mg tablet RxNorm: 1 Tablet(s) PO daily take an additonal tablet for itching. 018 2017 Inactive hydrochlorothiazide 12.5 mg tablet RxNorm: 091860 1 Tablet(s) PO QAM 018 2017 Inactive Flintstones Complete (iron) 18 mg iron chewable tablet RxNorm: 1 Tablet(s) PO daily 018 2017 Inactive True Metrix Glucose Meter RxNorm: miscellaneous 019 2018 Inactive sertraline 50 mg tablet RxNorm: 866008 1 Tablet(s) PO daily 020 2019 Inactive loperamide 2 mg tablet RxNorm: 719262 oral 019 2018 Inactive d-mannose oral powder RxNorm: PO 018 2021 Inactive Symbicort 160 mcg-4.5 mcg/actuation HFA aerosol inhaler RxNorm: 8276381 2 Puff(s) INH BID 019 2018 Inactive Medication Administered No Medication Administered data Procedures Procedure Codes Date Patient Health Questionnaire CPT-4: DPHQ Electrocardiogram CPT-4: 71453 06/24/2023 Urinalysis, dip stick CPT-4: 64447 05/04/2023 [place] Assessment CPT-4: DSWA 01/02 Fall Risk Assessment CPT-4: DFRA 01/27/2023 Hypertension CPT-4: HTN 01/27/2023 Patient Health Questionnaire CPT-4: DPHQ Pain Screening CPT-4: PAS 2022 Tobacco Assessment/Screening CPT-4: TCA Hypertension CPT-4: HTN 08/17/2022 [place] Assessment CPT-4: DSWA 04/02 Patient Health [...] CPT-4: VACP Fall Risk Assessment SNOMED CT: 15184929 4 CPT-4: DFRA 01/13/2021 [place] Assessment CPT-4: DSWA 12/01 Urinalysis, dip stick CPT-4: 03711 09/24/2020 Patient Health Questionnaire CPT-4: DPHQ Electrocardiogram CPT-4: 66368 05/14/2020 Tobacco Assessment/Screening CPT-4: TCA Fall Risk Assessment SNOMED CT: 42539966 4 CPT-4: DFRA 01/01/2020 Functional Assessment CPT-4: DFA 01/01/2020 [place] Assessment CPT-4: DSWA 11/04 Patient Health Questionnaire CPT-4: DPHQ [place] Assessment CPT-4: DSWA 10/03 Hypertension CPT-4: HTN 10/17/2019 Fall Risk Assessment SNOMED CT: 12819960 4 CPT-4: DFRA 09/19/2019 Functional Assessment CPT-4: DFA 09/19/2019 Urinalysis, dip stick CPT-4: 63256 06/21/2019 Tobacco Assessment/Screening CPT-4: TCA Patient Health Questionnaire CPT-4: DPHQ AHA/REBECCA Classification Assessment CPT-4: DAHA 04/25/2019 Controlled Substance Report CPT-4: CTRSU 04/03 Urinalysis, dip stick CPT-4: 30145 03/28/2019 Urinalysis, dip stick CPT-4: 45510 03/28/2019 D3Q-Pljhzpiohqhtsfq CPT-4: 53868 Unknown J3R-Fotvxmcnbjutubg CPT-4: 67638 Unknown D2V-Lufddkhuyntlmps CPT-4: 67032 Unknown E3U-Hzixmarmtwvyrug CPT-4: 84975 Unknown P9A-Ccjhlwklvrmfmps CPT-4: 79463 Unknown M4X-Gxpzcdmffmuxnbk CPT-4: 04078 Unknown E6S-Fulcidyihxigwnk CPT-4: 71768 Unknown G5O-Ljfixcfrnohvvhs CPT-4: 54957 Unknown P3O-Cqegxdzsapgoenp CPT-4: 19431 Unknown L5I-Xmxdodcmhzpqlwp CPT-4: 10808 Unknown L7I-Rammfpoygloikpp CPT-4: 03126 Unknown I6X-Kcrsaqgcyngnjjc CPT-4: 45622 Unknown Gynecology Referral SNOMED CT: 610117174 CPT-4: R14 Unknown Reason For Visit No Reason For Visit data Plan of Care Planned Activity Notes Codes Status Date Referral: Pending Gynecology Referral Information Referral Processed Referral: Pending Pulmonolog y Referral Information Referral Processed Referral: Pending Psychiatry Referral Information Referral Initiated Referral: Pending Respirator y Services Referral Information Referral Initiated Referral: Pending Ophthalmol ogy Referral Information Referral Initiated Referral: [facility] WPtel: [address] [address] [place] Maintenance Chief placed a call out to the patient to notify her that it has been recommended that she be seen by a urologist. Patient agreed to be seen, does not have a provider of choice and no transportation issues. Maintenance Chief faxed referral and clinical notes to [facility] in [place], [place] near the patient's home. Patient to [...] seen and prefers a provider in the [place] or [place] area. Maintenance Chief placed a call out to everyone listed in the area and the only location that was able to accept the patient's insurance was [address] [id number] and spoke with Maylin. Maylin asked that the patient's referral, face sheet and visit notes be faxed to . Maintenance Chief faxed over requested documents. Patient appointment confirmation letter generated and mailed to her home address. Patient to call to schedule an appointment. Processed [facility]erral: [facility] WPtel: [address] [place] [address] Patient notified that it has been advised that she be seen by Neurology. Patient agreed to be seen and prefers to be seen by a provider in the [place], [place] area. Patient denies any concerns with transportation, and prefers to schedule her own appointment. Maintenance Chief placed a [facility] to [facility] and spoke with Neeraj [...]
--- OUTSIDE RECORDS SUMMARY | 2024-01-03 23:28 | XMS_ITS | CCD ---
Author Name Leena Culver NP Address [id number] [place] [address] [address] [place] [address] Phone Organization [facility] Phone Care Team Providers Care [employer] Officer Name Role Phone Anna Culver NP Primary Care Provider Unav ailable Unavailable Chronic Care Management Unavaila ble Summary Purpose DataExchange Insurance Providers Payer name Policy type / Coverage type Covered green party ID Effective Begin Date Effective End Date SUKI MAYO [id number] Unknown Unknown Family history Mother Diagnosis Age [...] Unknown Disability 05/31/[address]: 841534528 Has never s moked or chewed tobacco 05/31/[address]: 492440796 Never drinks alco hol 05/31/2018 Has the patient ever used illegal drugs? Unknown Has never used illegal drugs 05/31/2018 DNR Order/ Advanced Directive Unknown Full Code 05/31/2018 Allergies, Adverse Reactions, Alerts Substance Reaction Codes Entered Date Inactivated Date Status OxyContin itch, RxNorm: 583975 01/13/2021 No Inactive Da te Active *No [...] ICD-10: R51 ICD-9: 784.0 10/03/2018 Inactive Other snf (current) dr sharma therapy ICD-10: Z79.899 ICD-9: V58.69 04/25/2019 Inactive Type 2 diabetes mellitus wit hout complications ICD-10: E11.9 ICD-9: 250.00 10/03/2018 Inactive Wheezing ICD-10: R06.2 ICD-9: 786.07 08/08/2018 Inactive Abnormal urine finding ICD-10: R82.90 ICD-9: 791.9 09/24/2020 Resolved Abrasion of toe ICD-10: S90.416A ICD-9: 917.0 02/14/2020 Resolved [place] eye ICD-10: H10.029 ICD-9: 372.03 12/29/2019 Resolved [...] Fill Instructions amoxicillin 250 mg capsule RxNorm: 685844 Take 1 Capsule(s) Oral three times a day 023 2022 Inactive Januvia 100 mg tablet RxNorm: 003506 Take 1 Tablet(s) Oral every day 023 2023 Active amoxicillin 500 mg tablet RxNorm: 399052 Take 1 Tablet(s) Oral three times a day 023 2022 Inactive Ozempic 1 mg/dose (4 mg/3 mL) subcutaneous pen injector RxNorm: 5639262 INJECT 1 UNITS DOSE SUBCUTANEOUSLY ON TUESDAY OF EACH WEEK 023 2023 Active MED IS ON B/O omeprazole 40 mg capsule,delayed release RxNorm: 712739 Take 1 Capsule(s) Oral HS 023 2022 Inactive Januvia 50 mg tablet RxNorm: 764144 Take 1 Tablet(s) Oral two times a day 023 2023 Inactive famotidine 20 mg tablet RxNorm: 227740 TAKE 1 TABLET BY MOUTH EACH MORNING 023 2023 Active Januvia 25 mg tablet RxNorm: 345762 Take 1 Tablet(s) Oral every day 023 2022 Inactive Ozempic 1 mg/dose (4 mg/3 mL) subcutaneous pen injector RxNorm: 2931430 INJECT 1 UNITS DOSE SUBCUTANEOUSLY ON TUESDAY OF EACH WEEK 023 2022 Inactive cetirizine 10 mg tablet RxNorm: 3296748 TAKE (1) TABLET BY MOUTH DAILY 023 2023 Inactive amoxicillin 500 mg tablet RxNorm: 443043 Take 1 Tablet(s) Oral two times a day 023 2022 Inactive omeprazole 40 mg capsule,delayed release RxNorm: 058167 Take 1 Capsule(s) Oral at bed time 023 2022 Inactive Easy Touch Alcohol Prep Pads RxNorm: 619609 USE EACH MORNING 023 2024 Active montelukast 10 mg tablet RxNorm: 912862 Take 1 Tablet(s) Oral every day 023 2022 Inactive gabapentin 300 mg capsule RxNorm: 044942 Take 1 Capsule(s) Oral three times a day 023 2022 Inactive metformin ER 500 mg 24 hr tablet,extended release RxNorm: 2425921 Take 1 Tablet(s) Oral every day with the evening meal 023 2022 Inactive famotidine 20 mg tablet RxNorm: 413941 Take 1 Tablet(s) Oral every morning 023 2022 Inactive levothyroxine 50 mcg tablet RxNorm: 861791 Take 1 Tablet(s) Oral every day 023 2023 Active Msg From [facility]: Dr. Zapata Requested hydrochlorothiazide 25 mg tablet RxNorm: 420155 Take 1 Tablet(s) Oral every day 023 2023 Active Msg From [facility]: Dr. Zapata Requested atorvastatin 20 mg tablet RxNorm: 844772 Take 1 Tablet(s) Oral every night at bedtime 023 2023 Active Macrobid 100 mg capsule RxNorm: 090328 1 Capsule(s) Oral every 12 hours with food 023 2022 Inactive omeprazole 40 mg capsule,delayed release RxNorm: 929747 Take 1 Capsule(s) Oral every night at bedtime 023 2022 Inactive trazodone 50 mg tablet RxNorm: 445876 Administer 1 Tablet(s) Oral every night at bedtime 023 No Stop Date Active cholecalciferol (vitamin D3) 50 mcg (2,000 unit) tablet RxNorm: 567934 Take 1 Tablet(s) Oral every day 023 2023 Active Ozempic 1 mg/dose (4 mg/3 mL) subcutaneous pen injector RxNorm: 9542302 USE 1 UNIT DOSE SUBCUTANEOUSLY ON TUE OF EACH WEEK 023 2022 Inactive lisinopril 2.5 mg tablet RxNorm: 099180 Take 1 Tablet(s) Oral every day 04/19/11 Inactive Msg From [facility]: Dr. Zapata Requested Ozempic 1 mg/dose (4 mg/3 mL) subcutaneous pen injector RxNorm: 3511047 USE 1 UNIT DOSE SUBCUTANEOUSLY ON TUE OF EACH WEEK 2022 Inactive omeprazole 40 mg capsule,delayed release RxNorm: 934645 Take 1 Capsule(s) Oral every night at bedtime 2022 Inactive gabapentin 300 mg capsule RxNorm: 191330 Take 1 Capsule(s) Oral three times a day 2022 Inactive montelukast 10 mg tablet RxNorm: 744128 Take 1 Tablet(s) Oral every day 2022 Inactive omeprazole 20 mg capsule,delayed release RxNorm: 833174 Take 1 Capsule(s) Oral every evening 2022 Inactive Alcohol Prep Pads RxNorm: 792201 USE EACH MORNING 2021 Inactive E11.42 clotrimazole 1 % topical cream RxNorm: 034051 Apply 1 Application Topical two times a day as needed apply to affected area(s) twice daily until healed 2021 Inactive Victoza 2-Sebastián 0.6 mg/0.1 mL (18 mg/3 mL) subcutaneous pen injector RxNorm: 326355 Inject 0.6-1.8 Milligram(s) Subcutaneous once a week Inject 0.6mg/0.1ml week one, 1.2mg/0.2ml week two, 1.8/0.3ml weekly thereafter 2021 Inactive ibuprofen 800 mg tablet RxNorm: 404695 Take 1 Tablet(s) Oral Q8H as needed for pain take with food No Stop Date Active Ozempic 1 mg/dose (4 mg/3 mL) subcutaneous pen injector RxNorm: 7397226 Take 1 Unit Dose Subcutaneous QWeek Tuesday2021 Inactive lisinopril 2.5 mg tablet RxNorm: 409107 Take 1 Tablet(s) Oral every day /20/ 2022 Inactive lisinopril 2.5 mg tablet RxNorm: 193475 Take 1 Tablet(s) Oral every day 022 2022 Inactive hydrochlorothiazide 25 mg tablet RxNorm: 429357 Take 1 Tablet(s) Oral every day 022 2021 Inactive Ozempic 1 mg/dose (4 mg/3 mL) subcutaneous pen injector RxNorm: 1731378 Take 1 Unit Dose Subcutaneous QWeek 022 2021 Inactive famotidine 20 mg tablet RxNorm: 003186 Take 1 Tablet(s) Oral every morning 2021 Inactive levothyroxine 50 mcg tablet RxNorm: 950058 Take 1 Tablet(s) Oral every day 2021 Inactive atorvastatin 20 mg tablet RxNorm: 272042 Take 1 Tablet(s) Oral every night at bedtime 2021 Inactive Cleocin T 1 % lotion RxNorm: 116723 Take 2 Gram(s) Topical every day 022 2021 Inactive Cleocin T 1 % lotion RxNorm: 971845 Take 2 Gram(s) Topical every day 022 2021 Inactive Ozempic 1 mg/dose (4 mg/3 mL) subcutaneous pen injector RxNorm: 1915536 Take 1 Unit Dose Subcutaneous QWeek 022 2021 Inactive Ozempic 0.25 mg or 0.5 mg (2 mg/1.5 mL) subcutaneous pen injector RxNorm: 5733670 INJECT 0.5 MGS SUBCUTANEOUSLY EVERY WEEK 022 2021 Inactive omeprazole 20 mg capsule,delayed release RxNorm: 078248 Take 1 Capsule(s) Oral every evening 022 2021 Inactive levothyroxine 50 mcg tablet RxNorm: 097896 Take 1 Tablet(s) Oral every day 022 2021 Inactive atorvastatin 20 mg tablet RxNorm: 847389 Take 1 Tablet(s) Oral every night at bedtime 2021 Inactive This refill negates all other refills of this medication lisinopril 2.5 mg tablet RxNorm: 200580 Take 1 Tablet(s) Oral every day 022 2021 Inactive gabapentin 300 mg capsule RxNorm: 896078 Take 1 Capsule(s) Oral three times a day 2021 Inactive montelukast 10 mg tablet RxNorm: 755900 Take 1 Tablet(s) Oral every day 2021 Inactive Myrbetriq 50 mg tablet,extended release RxNorm: 2737065 1 Tablet(s) Oral every day No Stop Date Active cholecalciferol (vitamin D3) 50 mcg (2,000 unit) tablet RxNorm: 545696 Take 1 Tablet(s) Oral every day 2022 Inactive Ozempic 0.25 mg or 0.5 mg (2 mg/1.5 mL) subcutaneous pen injector RxNorm: 7657097 inject 0.5 milligrams subcutaneously every week 2021 Inactive Ozempic 0.25 mg or 0.5 mg (2 mg/1.5 mL) subcutaneous pen injector RxNorm: 7933988 Take 0.5 Capsule(s) Injection once a week 022 2021 Inactive omeprazole 20 mg capsule,delayed release RxNorm: 841802 Take 1 Capsule(s) Oral every evening 2020 Inactive Ozempic 0.25 mg or 0.5 mg (2 mg/1.5 mL) subcutaneous pen injector RxNorm: 4607656 Take 0.25 Milligram(s) Subcutaneous once a week 021 2021 Inactive Easy Touch Alcohol Prep Pads RxNorm: 650478 USE DIRECTED EACH MORNING 021 2021 Inactive Probiotic 10 billion cell capsule RxNorm: 2023513 Take 1 Capsule(s) Oral every day 021 2021 Inactive levothyroxine 50 mcg tablet RxNorm: 646461 Take 1 Tablet(s) Oral every day 021 2020 Inactive Acid Casket Inspector (famotidine) 20 mg tablet RxNorm: 045233 Take 1 Tablet(s) Oral every morning 021 2020 Inactive Heartburn Relief (famotidine) 10 mg tablet RxNorm: 957380 Take 1 Tablet(s) Oral QAM 2020 Inactive levothyroxine 50 mcg tablet RxNorm: 747884 Take 1 Tablet(s) Oral QD 2020 Inactive Singulair 10 mg tablet RxNorm: 176638 TAKE (1) TABLET BY MOUTH DAILY 2020 Inactive metformin 1,000 mg tablet RxNorm: 391141 1 Tablet(s) Oral two times a day 2021 Inactive lisinopril 2.5 mg tablet RxNorm: 174442 Take 1 Tablet(s) Oral every day 021 2020 Inactive hydrochlorothiazide 25 mg tablet RxNorm: 733552 Take 1 Tablet(s) Oral every day 021 2020 Inactive ondansetron 4 mg disintegrating tablet RxNorm: 920016 1 Tablet(s) Oral two times a day 021 2020 Inactive Sudafed 12 Hour 120 mg tablet,extended release RxNorm: 3881253 TAKE 1 TABLET BY MOUTH EVERY 12 HOURS NEEDED 2021 Inactive Heartburn Relief (famotidine) 10 mg tablet RxNorm: 781611 Take 1 Tablet(s) Oral every morning 021 2020 Inactive omeprazole 20 mg capsule,delayed release RxNorm: 929294 1 Capsule(s) Oral every evening 021 2020 Inactive sertraline 100 mg tablet RxNorm: 170546 2 Tablet(s) Oral every day 021 2020 Inactive levothyroxine 50 mcg tablet RxNorm: 579301 TAKE (1) TABLET BY MOUTH DAILY 2020 Inactive metformin 500 mg tablet RxNorm: 141542 1 Tablet(s) Oral two times a day take with 500mg to equal 1000mg 021 2020 Inactive gabapentin 300 mg capsule RxNorm: 112949 TAKE 1 CAPSULE BY MOUTH THREE TIMES A DAY 021 2020 Inactive lisinopril 2.5 mg tablet RxNorm: 714413 TAKE 1 TABLET BY MOUTH DAILY 2020 Inactive gabapentin 300 mg capsule RxNorm: 857561 TAKE 1 CAPSULE BY MOUTH THREE TIMES A DAY 021 2020 Inactive Singulair 10 mg tablet RxNorm: 058196 TAKE (1) TABLET BY MOUTH DAILY 2020 Inactive metformin 1,000 mg tablet RxNorm: 351098 1 Tablet(s) Oral two times a day 2020 Inactive atorvastatin 40 mg tablet RxNorm: 029011 1 Tablet(s) Oral every day 021 2020 Inactive omeprazole 20 mg capsule,delayed release RxNorm: 525620 1 Capsule(s) Oral every evening 2020 Inactive famotidine 10 mg tablet RxNorm: 553303 1 Tablet(s) Oral every morning 021 2020 Inactive Alcohol Prep Pads RxNorm: 162151 USE EACH MORNING 021 2020 Inactive omeprazole 20 mg capsule,delayed release RxNorm: 409537 1 Capsule(s) Oral two times a day 021 2021 Inactive omeprazole 20 mg capsule,delayed release RxNorm: 216811 TAKE 1 CAPSULE BY MOUTH EVERY DAY 2021 Inactive Macrobid 100 mg capsule RxNorm: 972899 1 Capsule(s) Oral every 12 hours with food 2020 Inactive omeprazole 20 mg capsule,delayed release RxNorm: 423354 1 Capsule(s) Oral two times a day 2021 Inactive metformin 1,000 mg tablet RxNorm: 139114 1 Tablet(s) Oral two times a day 2020 Inactive start on September 11, 2020 metformin 500 mg tablet RxNorm: 140118 1 Tablet(s) Oral two times a day take with 500mg to equal 1000mg 2019 Inactive gabapentin 300 mg capsule RxNorm: 650836 TAKE 1 CAPSULE BY MOUTH THREE TIMES DAILY 2020 Inactive cetirizine 10 mg tablet RxNorm: 2514920 TAKE (1) TABLET BY MOUTH DAILY 2020 Inactive metformin 500 mg tablet RxNorm: 332410 1 Tablet(s) Oral two times a day 2019 Inactive loperamide 2 mg tablet RxNorm: 332330 1 Tablet(s) Oral as needed take one tablet after each loose stool, maximum of 8 tablets in 24 hours 2021 Inactive Sudafed 12 Hour 120 mg tablet,extended release RxNorm: 5155171 TAKE 1 TABLET BY MOUTH EVERY 12 HOURS NEEDED 2019 Inactive hydrochlorothiazide 25 mg tablet RxNorm: 928766 TAKE (1) TABLET BY MOUTH EVERY DAY 2019 Inactive omeprazole 20 mg capsule,delayed release RxNorm: 098028 TAKE 1 CAPSULE BY MOUTH EVERY DAY 2020 Inactive metformin 500 mg tablet RxNorm: 782173 1 Tablet(s) Oral every day 2019 Inactive True Metrix Glucose Test Strip RxNorm: 1 Test Strips Miscellaneous two times a day as needed No Stop Date Active metformin 500 mg tablet RxNorm: 073819 1 Tablet(s) Oral every day 2019 Inactive diclofenac sodium 75 mg tablet,delayed release RxNorm: 190072 1 Tablet(s) PO BID 2021 Inactive This refill negates all other refills of this medication Sudafed 12 Hour 120 mg tablet,extended release RxNorm: 8885312 TAKE 1 TABLET BY MOUTH EVERY 12 HOURS NEEDED 2019 Inactive True Metrix Glucose Test Strip RxNorm: 1 Test Strips Miscellaneous every morning 020 2019 Inactive 100/container True Metrix Glucose Test Strip RxNorm: 1 Test Strips Miscellaneous QAM 020 2019 Inactive 100/container loperamide 2 mg tablet RxNorm: 921326 1 Tablet(s) Oral as needed take one tablet after each loose stool, maximum of 8 tablets in 24 hours 020 2019 Inactive cetirizine 10 mg tablet RxNorm: 8574837 1 Tablet(s) PO daily 2019 Inactive loperamide 2 mg tablet RxNorm: 761233 1 Tablet(s) Oral as needed take one tablet after each loose stool, maximum of 8 tablets in 24 hours 020 2019 Inactive quetiapine 100 mg tablet RxNorm: 669001 1 Tablet(s) Oral every night at bedtime 2019 Inactive levothyroxine 50 mcg tablet RxNorm: 080734 1 Tablet(s) PO daily 020 2020 Inactive gabapentin 300 mg capsule RxNorm: 347569 1 Capsule(s) PO TID 020 2019 Inactive levothyroxine 50 mcg tablet RxNorm: 535385 1 Tablet(s) PO daily 2019 Inactive lisinopril 2.5 mg tablet RxNorm: 002814 1 Tablet(s) PO daily 020 2020 Inactive gabapentin 300 mg capsule RxNorm: 177817 1 Capsule(s) PO TID 2019 Inactive cetirizine 10 mg tablet RxNorm: 2262420 1 Tablet(s) PO daily 020 2019 Inactive Singulair 10 mg tablet RxNorm: 129353 1 Tablet(s) PO daily 020 2020 Inactive gentamicin 0.3 % eye drops RxNorm: 110206 1 Drop(s) ophthalmic (eye) four times a day 020 2019 Inactive gentamicin 0.3 % eye drops RxNorm: 905369 1 Drop(s) ophthalmic (eye) four times a day 020 2019 Inactive gentamicin 0.3 % eye drops RxNorm: 520263 1 Drop(s) ophthalmic (eye) four times a day 020 2019 Inactive hydrochlorothiazide 25 mg tablet RxNorm: 758079 1 Tablet(s) Oral every day 2019 Inactive Sudafed 12 Hour 120 mg tablet,extended release RxNorm: 0666179 TAKE (1) TABLET BY MOUTH EVERY 12 HOURS NEEDED 2019 Inactive loperamide 2 mg tablet RxNorm: 007579 1 Tablet(s) Oral as needed take one tablet after each loose stool, maximum of 8 tablets in 24 hours 020 2019 Inactive loperamide 2 mg tablet RxNorm: 146801 1 Tablet(s) Oral as needed take one tablet after each loose stool, maximum of 8 tablets in 24 hours 2019 Inactive atorvastatin 40 mg tablet RxNorm: 792927 1 Tablet(s) Oral every day 2020 Inactive quetiapine 100 mg tablet RxNorm: 235803 1 Tablet(s) Oral every night at bedtime 2019 Inactive sertraline 100 mg tablet RxNorm: 136696 1 Tablet(s) Oral 2019 Inactive omeprazole 20 mg capsule,delayed release RxNorm: 383213 1 Capsule(s) Oral every day 2019 Inactive amoxicillin 250 mg capsule RxNorm: 374480 1 Capsule(s) Oral three times a day 020 2019 Inactive multivitamin with iron-mineral tablet RxNorm: 1 Tablet(s) Oral every day 2021 Inactive cetirizine 10 mg tablet RxNorm: 2508048 1 Tablet(s) PO daily 2019 Inactive This refill negates all other refills of this medication. Please do not auto refill Singulair 10 mg tablet RxNorm: 687882 1 Tablet(s) PO daily 2019 Inactive This refill negates all other refills of this medication gabapentin 300 mg capsule RxNorm: 094173 1 Capsule(s) PO TID 2019 Inactive lisinopril 2.5 mg tablet RxNorm: 372102 1 Tablet(s) PO daily 2019 Inactive levothyroxine 50 mcg tablet RxNorm: 926397 1 Tablet(s) PO daily 2019 Inactive This refill negates all other refills of this medication hydrochlorothiazide 25 mg tablet RxNorm: 858213 1 Tablet(s) Oral every day 2019 Inactive fenugreek seed extract 500 mg capsule RxNorm: 1 Capsule(s) Oral three times a day 2021 Inactive Alcohol Prep Pads RxNorm: 466966 1 Patch TOP QAM 2020 Inactive loperamide 2 mg tablet RxNorm: 576503 1 Tablet(s) Oral as needed take one [...] 2019 Inactive hydrochlorothiazide 25 mg tablet RxNorm: 515244 1 Tablet(s) Oral every day 2019 Inactive Sudafed 12 Hour 120 mg tablet,extended release RxNorm: 5072615 1 Tablet(s) Oral every 12 hours as needed 2018 Inactive omeprazole 20 mg capsule,delayed release RxNorm: 571781 1 Capsule(s) Oral every day 019 2019 Inactive Sudafed 12 Hour 120 mg tablet,extended release RxNorm: 1991241 1 Tablet(s) Oral every 12 hours as needed 019 2018 Inactive pantoprazole 40 mg tablet,delayed release RxNorm: 241297 1 Tablet(s) Oral every day 2018 Inactive discontinue any other H2Blkr. and PPI albuterol sulfate 2.5 mg/3 mL (0.083 %) solution for nebulization RxNorm: 543015 1 Vial Inhalation every four hours as needed as needed for dyspnea 2019 Inactive 60/box. This refill negates all other refills of this medication. Please do not fill early. Please do not auto refill. Symbicort 160 mcg-4.5 mcg/actuation HFA aerosol inhaler RxNorm: 6004342 2 Puff(s) INH BID No Stop Date Active Alcohol Prep Pads RxNorm: 557882 1 Patch TOP QAM 2019 Inactive Ventolin HFA 90 mcg/actuation aerosol inhaler RxNorm: 910562 2 Puff(s) INH QID 2019 Inactive Please do not fill early. Please do not auto refill. This refill negates all other refills of this medication True Metrix Glucose Test Strip RxNorm: 1 Test Strips Miscellaneous QAM 019 2019 Inactive 100/container atorvastatin 40 mg tablet RxNorm: 412876 1 Tablet(s) Oral every day 019 2019 Inactive buspirone 7.5 mg tablet RxNorm: 566029 1 Tablet(s) PO BID 019 2020 Inactive This refill negates all other refills of this medication hydrochlorothiazide 12.5 mg tablet RxNorm: 031370 1 Tablet(s) PO QAM 2019 Inactive levmetamfetamine 50 mg nasal inhaler RxNorm: 1 Unit(s) NASAL Q3-4H Do not use more than every 3 hours or 8 times/24hours 2021 Inactive Please do not auto refill. This refill negates all other refills of this medication Ventolin HFA 90 mcg/actuation aerosol inhaler RxNorm: 474114 2 Puff(s) INH QID 2018 Inactive Please do not fill early. Please do not auto refill. This refill negates all other refills of this medication Singulair 10 mg tablet RxNorm: 629848 1 Tablet(s) PO daily 2019 Inactive This refill negates all other refills of this medication cetirizine 10 mg tablet RxNorm: 7642220 1 Tablet(s) PO daily 019 2019 Inactive This refill negates all other refills of this medication. Please do not auto refill levothyroxine 50 mcg tablet RxNorm: 705995 1 Tablet(s) PO daily 019 2019 Inactive This refill negates all other refills of this medication diclofenac sodium 75 mg tablet,delayed release RxNorm: 988437 1 Tablet(s) PO BID 019 2019 Inactive This refill negates all other refills of this medication ranitidine 150 mg tablet RxNorm: 681607 1 Tablet(s) PO BID 019 2018 Inactive This refill negates all other refills of this medication Calcium 600-D3 Plus (mag-zinc) 600 mg calcium-800 unit-50 mg tablet RxNorm: 1 Tablet(s) PO daily take an additonal tablet for itching. 019 2018 Inactive This refill negates all other refills of this medication albuterol sulfate 2.5 mg/3 mL (0.083 %) solution for nebulization RxNorm: 514666 1 Vial INH QID 019 2018 Inactive 60/box. This refill negates all other refills of this medication. Please do not fill early. Please do not auto refill. lisinopril 2.5 mg tablet RxNorm: 444630 1 Tablet(s) PO daily 019 2019 Inactive gabapentin 300 mg capsule RxNorm: 030821 1 Capsule(s) PO TID 019 2019 Inactive atorvastatin 20 mg tablet RxNorm: 306320 1 Tablet(s) PO QHS 2018 Inactive This refill negates all other refills of this medication TRUEplus Lancets 30 gauge RxNorm: 1 Lancets Miscellaneous QAM 019 2018 Inactive 100/box gabapentin 300 mg capsule RxNorm: 007263 1 Capsule(s) PO TID 019 2018 Inactive Flintstones Complete (iron) 18 mg iron chewable tablet RxNorm: 1 Tablet(s) PO daily 019 2021 Inactive This refill negates all other refills of this medication gabapentin 300 mg capsule RxNorm: 837126 1 Capsule(s) PO TID as needed 019 2018 Inactive True Metrix Glucose Test Strip RxNorm: 1 Test Strips Miscellaneous QA 019 2018 Inactive 100/container Alcohol Prep Pads RxNorm: 943848 1 Patch TOP QA 019 2018 Inactive TRUEplus Lancets 30 gauge RxNorm: 1 Lancets Miscellaneous QAM 019 2018 Inactive 100/box lisinopril 2.5 mg tablet RxNorm: 269965 1 Tablet(s) PO daily 019 2018 Inactive ranitidine 150 mg tablet RxNorm: 192930 1 Tablet(s) PO BID 019 2018 Inactive This refill negates all other refills of this medication albuterol sulfate 2.5 mg/3 mL (0.083 %) solution for nebulization RxNorm: 148546 1 Vial INH QID 019 2018 Inactive [...] this medication gabapentin 300 mg capsule RxNorm: 377337 1 Capsule(s) PO TID as needed 019 2018 Inactive atorvastatin 20 mg tablet RxNorm: 687165 1 Tablet(s) PO QHS 019 2018 Inactive This refill negates all other refills of this medication trazodone 50 mg tablet RxNorm: 505706 1 Tablet(s) PO QHS 019 2018 Inactive This refill negates all other refills of this medication Ventolin HFA 90 mcg/actuation aerosol inhaler RxNorm: 600243 2 Puff(s) INH QID 019 2018 Inactive Please do not fill early. Please do not auto refill. This refill negates all other refills of this medication Calcium 600-D3 Plus 600 mg calcium-800 unit-50 mg tablet RxNorm: 1 Tablet(s) PO daily take an additonal tablet for itching. 019 2018 Inactive This refill negates all other refills of this medication Singulair 10 mg tablet RxNorm: 690242 1 Tablet(s) PO daily 019 2018 Inactive This refill negates all other refills of this medication buspirone 7.5 mg tablet RxNorm: 997664 1 Tablet(s) PO BID 019 2018 Inactive This refill negates all other refills of this medication diclofenac sodium 75 mg tablet,delayed release RxNorm: 630333 1 Tablet(s) PO BID 019 2018 Inactive This refill negates all other refills of this medication hydrochlorothiazide 12.5 mg tablet RxNorm: 604224 1 Tablet(s) PO QAM 019 2018 Inactive metoprolol succinate ER 50 mg tablet,extended release 24 hr RxNorm: 104050 1 Tablet(s) PO daily 019 2018 Inactive This refill negates all other refills of this medication levothyroxine 50 mcg tablet RxNorm: 869668 1 Tablet(s) PO daily 019 2018 Inactive This refill negates all other refills of this medication cetirizine 10 mg tablet RxNorm: 3591553 1 Tablet(s) PO daily 019 2018 Inactive This refill negates all other refills of this medication. Please do not auto refill Flintstones Complete (iron) 18 mg iron chewable tablet RxNorm: 1 Tablet(s) PO daily 019 2018 Inactive This refill negates all other refills of this medication buspirone 7.5 mg tablet RxNorm: 675680 1 Tablet(s) PO BID 2018 Inactive cetirizine 10 mg tablet RxNorm: 8649510 1 Tablet(s) PO daily 2018 Inactive Guaiasorb DM 10 mg-100 mg/5 mL oral liquid RxNorm: 795887 10 Milliliter(s) PO As needed every 4 hr 2018 Inactive Vicks Vaporub 4.7 %-1.2 %-2.6 % topical ointment RxNorm: 3211047 1 Application TOP TID 2018 Inactive levmetamfetamine 50 mg nasal inhaler RxNorm: 1 Unit(s) NASAL Q3-4H 2017 Inactive sertraline 50 mg tablet RxNorm: 901542 1 Tablet(s) PO daily 2018 Inactive Please note dose trazodone 50 mg tablet RxNorm: 134507 1 Tablet(s) PO QHS 018 2018 Inactive sertraline 50 mg tablet RxNorm: 685133 1 Tablet(s) PO daily 018 2017 Inactive amoxicillin 500 mg tablet RxNorm: 323686 1 Tablet(s) PO Q12H 018 2017 Inactive albuterol sulfate 2.5 mg/3 mL (0.083 %) solution for nebulization RxNorm: 460383 1 Vial INH QID 018 2018 Inactive 60/box. Please do not fill early. Please do not auto refill. Prozac 10 mg capsule RxNorm: 205157 1 Capsule(s) PO daily 018 2017 Inactive buspirone 7.5 mg tablet RxNorm: 872500 1 Tablet(s) PO BID 018 2018 Inactive gabapentin 300 mg capsule RxNorm: 135258 1 Capsule(s) PO TID as needed 018 2018 Inactive hydrochlorothiazide 12.5 mg tablet RxNorm: 647366 1 Tablet(s) PO QAM 018 2018 Inactive ranitidine 150 mg tablet RxNorm: 305605 1 Tablet(s) PO BID 018 2018 Inactive Macrobid 100 mg capsule RxNorm: 331500 1 Capsule(s) PO Q12H 018 2017 Inactive Singulair 10 mg tablet RxNorm: 370629 1 Tablet(s) PO daily 018 2018 Inactive Ventolin HFA 90 mcg/actuation aerosol inhaler RxNorm: 1270992 2 Puff(s) INH QID 018 2018 Inactive Singulair 10 mg tablet RxNorm: 452401 1 Tablet(s) PO daily 018 2017 Inactive buspirone 7.5 mg tablet RxNorm: 270519 1 Tablet(s) PO BID 018 2017 Inactive Prozac 10 mg capsule RxNorm: 971328 1 Capsule(s) PO daily 018 2017 Inactive diclofenac sodium 75 mg tablet,delayed release RxNorm: 242374 1 Tablet(s) PO BID 018 2017 Inactive lisinopril 2.5 mg tablet RxNorm: 917059 1 Tablet(s) PO daily 018 2017 Inactive Neilmed Pediatric Sinus Rinse Refill packet RxNorm: 1 Unit Dose NASAL PRN 018 2021 Inactive metoprolol succinate ER 50 mg tablet,extended release 24 hr RxNorm: 682192 1 Tablet(s) PO daily 018 2017 Inactive levothyroxine 50 mcg tablet RxNorm: 485773 1 Tablet(s) PO daily 018 2017 Inactive TRUEplus Lancets 30 gauge RxNorm: 1 Lancets Miscellaneous QAM 018 2017 Inactive 100/box Ventolin HFA 90 mcg/actuation aerosol inhaler RxNorm: 086730 2 Puff(s) INH QID 018 2017 Inactive Aleve 220 mg capsule RxNorm: 2668776 1 Capsule(s) PO BID 018 2018 Inactive ranitidine 150 mg tablet RxNorm: 569335 1 Tablet(s) PO BID 018 2017 Inactive gabapentin 300 mg capsule RxNorm: 256027 1 Capsule(s) PO TID as needed 018 2017 Inactive atorvastatin 20 mg tablet RxNorm: 667778 1 Tablet(s) PO QHS 018 2017 Inactive True Metrix Glucose Test Strip RxNorm: 1 Test Strips [facility] By [facility] QAM 018 2017 Inactive 50/container Calcium 600-D3 Plus 600 mg calcium-800 unit-50 mg tablet RxNorm: 1 Tablet(s) PO daily take an additonal tablet for itching. 018 2017 Inactive hydrochlorothiazide 12.5 mg tablet RxNorm: 089116 1 Tablet(s) PO QAM 018 2017 Inactive Flintstones Complete (iron) 18 mg iron chewable tablet RxNorm: 1 Tablet(s) PO daily 018 2017 Inactive True Metrix Glucose Meter RxNorm: miscellaneous 019 2018 Inactive sertraline 50 mg tablet RxNorm: 682602 1 Tablet(s) PO daily 020 2019 Inactive loperamide 2 mg tablet RxNorm: 884226 oral 019 2018 Inactive d-mannose oral powder RxNorm: PO 018 2021 Inactive Symbicort 160 mcg-4.5 mcg/actuation HFA aerosol inhaler RxNorm: 3986966 2 Puff(s) INH BID 019 2018 Inactive Medication Administered No Medication Administered data Results Observation Observation Code Item Item Code Result Date Service Location COMPLETE CBC W/ DIFF WBC 61307 WBC 6690-2 7.7 K/ul 09/22/20 [facility] [address] [place] [address] 65642 COMPLETE CBC W/ DIFF WBC 44563 RBC 789-8 4.92 M/uL 09/22/20 [facility] [address] [place] [address] 71311 COMPLETE CBC W/ DIFF WBC 77015 Hemoglobin 718-7 12.5 g/dL 09/22/20 [facility] [address] [place] [address] COMPLETE CBC W/ DIFF WBC 21064 Hematocrit 4544-3 38.4 % 09/22/20 [facility] [address] [place] [address] 91865 COMPLETE CBC W/ DIFF WBC 85976 MCV 787-2 78.1 fL 09/22/20 [facility] [address] [place] [address] COMPLETE CBC W/ DIFF WBC 63279 MCH 785-6 25.5 pg 09/22/20 [facility] [address] [place] [address] COMPLETE CBC W/ DIFF WBC 40854 MCHC 786-4 32.6 g/dL 09/22/20 [facility] [address] [place] [address] COMPLETE CBC W/ DIFF WBC 70924 RDW 788-0 14.6 % 09/22/20 [facility] [address] [place] [address] COMPLETE CBC W/ DIFF WBC 79413 Platelet Count 777-3 357 K/uL 09/22/20 [facility] [address] [place] [address] COMPLETE CBC W/ DIFF WBC 56269 MPV 17849-3 8.1 fL 09/22/20 [facility] [address] [place] [address] COMPLETE CBC W/ DIFF WBC 96525 Neutrophils % 770-8 63.7 % 09/22/20 [facility] [address] [place] [address] COMPLETE CBC W/ DIFF WBC 82847 Lymphocytes % 736-9 27.9 % 09/22/20 [facility] [address] [place] [address] COMPLETE CBC W/ DIFF WBC 57847 Monocytes % 5905-5 6.8 % 09/22/20 [facility] [address] [place] [address] 18894 COMPLETE CBC W/ DIFF WBC 08955 Eosinophils % 713-8 1.2 % 09/22/20 [facility] [address] [place] [address] 22750 COMPLETE CBC W/ DIFF WBC 56139 Basophils% 706-2 0.4 % 09/22/20 [facility] [address] [place] [address] 80882 COMPLETE CBC W/ DIFF WBC 46535 Absolute Neutrophil 751-8 4905 /ul 09/22/20 [facility] [address] [place] [address] 03094 COMPLETE CBC W/ DIFF WBC 96283 Absolute Lymphocyte 35724-9 2148 /ul 09/22/20 [facility] [address] [place] [address] 19693 COMPLETE CBC W/ DIFF WBC 78949 Absolute Monocyte 742-7 524 /ul 09/22/20 23 [facility] [address] [place] [address] 83767 COMPLETE CBC W/ DIFF WBC 00843 Absolute Eosinophil 711-2 92 /ul 09/22/20 23 [facility] [address] [place] [address] 28466 COMPLETE CBC W/ DIFF WBC 57655 Absolute Basophil 704-7 31 /ul 09/22/20 23 [facility] [address] [place] [address] 71847 CHEM 14 (METABOLIC PANEL) 77242 Glucose 2345-7 75 mg/dL 09/21/20 23 [facility] [address] [place] [address] 30736 CHEM 14 (METABOLIC PANEL) 05547 BUN 3094-0 14 mg/dL 09/21/20 23 [facility] [address] [place] [address] 64398 CHEM 14 (METABOLIC PANEL) 68740 Creatinine 2160-0 0.9 mg/dL 09/21/20 23 [facility] [address] [place] [address] 90925 CHEM 14 (METABOLIC PANEL) 82020 BUN/Creat Ratio 3097-3 16.0 09/21/20 [facility] [address] [place] [address] CHEM 14 (METABOLIC PANEL) 68032 GFR Estimated 06534-3 87 mL/min/1.7 3m2 09/21/20 [facility] [address] [place] [address] CHEM 14 (METABOLIC PANEL) 64490 Sodium 2951-2 140 mmol/L 09/21/20 [facility] [address] [place] [address] CHEM 14 (METABOLIC PANEL) 81468 Potassium 2823-3 4.3 mmol/L 09/21/20 [facility] [address] [place] [address] CHEM 14 (METABOLIC PANEL) 66903 Chloride 2075-0 105 mmol/L 09/21/20 [facility] [address] [place] [address] 24155 CHEM 14 (METABOLIC PANEL) 16928 Total CO2 2028-9 28 mmol/L 09/21/20 [facility] [address] [place] [address] 66957 CHEM 14 (METABOLIC PANEL) 09800 Anion Gap 1863-0 11.3 mEq/L 09/21/20 [facility] [address] [place] [address] 89235 CHEM 14 (METABOLIC PANEL) 45005 Calculated Serum Osmolality 24366-2 289 mOsm/kg 09/21/20 [facility] [address] [place] [address] 42162 CHEM 14 (METABOLIC PANEL) 45234 Albumin 04122-5 3.7 g/dL 09/21/20 [facility] [address] [place] [address] 62754 CHEM 14 (METABOLIC PANEL) 49640 Total Protein 2885-2 7.3 g/dL 09/21/20 [facility] [address] [place] [address] 48229 CHEM 14 (METABOLIC PANEL) 57583 Globulin 2336-6 3.6 g/dL 09/21/20 [facility] [address] [place] [address] 20042 CHEM 14 (METABOLIC PANEL) 90319 Albumin/Globuli n Ratio 1759-0 1.0 09/21/20 [facility] [address] [place] [address] 88062 CHEM 14 (METABOLIC PANEL) 67940 ALK PHOS 6768-6 100.00 U/L 09/21/20 [facility] [address] [place] [address] CHEM 14 (METABOLIC PANEL) 37486 SGOT/AST 1920-8 15 U/L 09/21/20 [facility] [address] [place] [address] CHEM 14 (METABOLIC PANEL) 27130 SGPT/ALT 1743-4 35 U/L 09/21/20 [facility] [address] [place] [address] CHEM 14 (METABOLIC PANEL) 60975 Total Bilirubin 1975-2 0.3 mg/dL 09/21/20 [facility] [address] [place] [address] CHEM 14 (METABOLIC PANEL) 40358 Calcium 67548-1 9.6 mg/dL 09/21/20 [facility] [address] [place] [address] CHEM 14 (METABOLIC PANEL) 62090 Corrected Calcium 02910-0 10.0 mg/dL 09/21/20 [facility] [address] [place] [address] V8H-FXGYSODCQRN OBIN 4548-4 Glyco HGB A1C 81563-6 5.6 % 09/21/20 [facility] [address] [place] [address] K7X-IPSZNUGHKDA OBIN 4548-4 eAG 57672-4 114 mg/dL 09/21/20 [facility] [address] [place] [address] Procedures Procedure Codes Date Patient Health Questionnaire CPT-4: DPHQ Electrocardiogram CPT-4: 59161 06/24/2023 Urinalysis, dip stick CPT-4: 09655 05/04/2023 Lawrence Fany Assessment CPT-4: DSWA 01/02 Fall Risk Assessment CPT-4: DFRA 01/27/2023 Hypertension CPT-4: HTN 01/27/2023 Patient Health Questionnaire CPT-4: DPHQ Pain Screening CPT-4: PAS 2022 Tobacco Assessment/Screening CPT-4: TCA Hypertension CPT-4: HTN 08/17/2022 Lawrence Fany Assessment CPT-4: DSWA 04/02 Patient Health [...] CPT-4: VACP Fall Risk Assessment SNOMED CT: 88528497 4 CPT-4: DFRA 01/13/2021 Lawrence Fany Assessment CPT-4: DSWA 12/01 Urinalysis, dip stick CPT-4: 11435 09/24/2020 Patient Health Questionnaire CPT-4: DPHQ Electrocardiogram CPT-4: 25233 05/14/2020 Tobacco Assessment/Screening CPT-4: TCA Fall Risk Assessment SNOMED CT: 02936732 4 CPT-4: DFRA 01/01/2020 Functional Assessment CPT-4: DFA 01/01/2020 Lawrence Fany Assessment CPT-4: DSWA 11/04 Patient Health Questionnaire CPT-4: DPHQ Lawrence Fany Assessment CPT-4: DSWA 10/03 Hypertension CPT-4: HTN 10/17/2019 Fall Risk Assessment SNOMED CT: 21709027 4 CPT-4: DFRA 09/19/2019 Functional Assessment CPT-4: DFA 09/19/2019 Urinalysis, dip stick CPT-4: 90490 06/21/2019 Tobacco Assessment/Screening CPT-4: TCA Patient Health Questionnaire CPT-4: DPHQ AHA/REBECCA Classification Assessment CPT-4: DAHA 04/25/2019 Controlled Substance Report CPT-4: CTRSU 04/03 Urinalysis, dip stick CPT-4: 37890 03/28/2019 Urinalysis, dip stick CPT-4: 86569 03/28/2019 G1D-Xkxrknluhkxnjdu CPT-4: 88184 Unknown I2P-Oddsihokpqyayqj CPT-4: 47929 Unknown K0Q-Flryrgwbecvmtab CPT-4: 72261 Unknown S4X-Fylaeuyfgoaryvo CPT-4: 98267 Unknown A6R-Dsvlnwuyfedumpa CPT-4: 20150 Unknown O4K-Fxiazfihexmildq CPT-4: 75476 Unknown O0J-Lftaocdlewiqrgz CPT-4: 25217 Unknown W2Y-Mvfwfpdmpcbfryt CPT-4: 32645 Unknown G8N-Tgflyqeqdqoyeme CPT-4: 55488 Unknown A7T-Ajxfjaqqdsdgxfl CPT-4: 61655 Unknown B8R-Uwiztykwjxehvla CPT-4: 84661 Unknown V7N-Axjgpqgsqbrygao CPT-4: 76923 Unknown Gynecology Referral SNOMED CT: 213014598 CPT-4: R14 Unknown J4S-Mpgkpwvizooxxry CPT-4: 46060 Unknown Vital Signs Date Vital 09/20/2023 Blood Pressure 1: 102/78 Code: 8480-6 BMI: 51.4 Code: 94395-2 Heart Rate 1: 77 bpm Height: 4'11 Code: 8302-2 Respiratory Rate: 16 bpm SpO2: 98% Temperature: 36.3 (C) / 97.3 (F) Weight: 254 lbs 8 oz Code: 77052-7 Reason For Visit Reason For Visit Effective Dates Notes diabetes mellitus 09/20/2023 respiratory complaint 09/20/2023 HTN 09/20/2023 Interim health update 09/20/2023 Encounters Encounter Performer Location Location Address Codes Magdi e ([id number]) Home or Residence Visit Est Pt - Moderate Level, 40 mins Diagnosis: Type 2 diabetes mellitus with peripheral neuropathy[ICD10: E11.42] Diagnosis: Hypertensive heart disease without heart failure[ICD10: I11.9] Diagnosis: Upper respiratory infection[ICD10: J06.9] Anna Culver [place] [facility] [id number] [place] [address] [place] [address] 46[address] CPT-4: 64985 09/20/2023 Plan of Care Planned Activity Notes Codes Status Date Visit Plan: Visit time spent inv olved in medical discussion with patient, including obtaining history from patient, systems review, diagnostic and laboratory test review with patient. Assessment findings and plan reviewed with patient, including time to provide counseling, and education to patient Send copy of labs to Michell Matamoros [phone] [id number] Type 2 diabetes mellitus with peripheral neuropathy Continues with varied blood sugars, elevations may be secondary to infectious process, continues with ozempic and januvia will check hgb a1c I11.9-402.90 Hypertensive heart disease without heart failure stable with current medications, will order labs J06.9-465.9 Upper respiratory infection will send prescription for Amoxicillin to local pharmacy 09/20/2023 Patient Education: Patient Medication Summary Completed 09/20/2023 Patient Education: Diabetes Complete d 09/20/2023 Patient Education: Hypertension Completed 09/20/2023 Patient Education: Obesity Completed 09/20/2023 Appointment: Anna Culver WPtel: [address] [place] [address] E410 08/05/2023 Appointment: Anna Culver WPtel: [address] [place] [address] E410 06/24/2023 Appointment: Anna Culver WPtel: [address] [place] [address] E410 05/04/2023 Appointment: Anna Culver WPtel: [address] [place] [address] E410 01/27/2023 Appointment: Anna Culver WPtel: [address] [place] [address] E410 11/23/2022 Appointment: Anna Culver WPtel: [address] [place] [address] E410 2022 Appointment: Anna Culver WPtel: [address] [place] [address] E410 08/17/2022 Appointment: Anna Culver WPtel: [address] [place] [address] E410 06/23/2022 Appointment: Chivo Bishop WPtel: [address] [place] [address] E410 04/19/2022 Appointment: Chivo Bishop WPtel: [address] [place] [address] E410 02/11/2022 Appointment: Mikey Nair WPtel: [address] [facility] b [id number] E410 12/03/2021 Appointment: Chivo Bishop WPtel: [id number] [place] [address] E410 11/02/2021 Appointment: Chivo Bishop WPtel: [address] [place] [address] E410 10/07/2021 Appointment: Chivo Bishop WPtel: [address] [place] [address] ETV 09/10/2021 Appointment: Chivo Bishop WPtel: [address] [place] [address] ETV 08/13/2021 Appointment: Chivo Bishop WPtel: [address] [place] [address] ETV 07/06/2021 Appointment: Chivo Bishop WPtel: [address] [place] [address] PHTV 06/10/2021 Appointment: Anna Culver WPtel: [address] [place] [address] ETV 06/02/2021 Appointment: Chivo Bishop WPtel: [address] [place] [address] ETV 05/20/2021 Appointment: Anna Culver WPtel: [address] [place] [address] ETV 04/28/2021 Appointment: Chivo Bishop WPtel: [address] [place] [address] ETV 04/15/2021 Appointment: Anna Culver WPtel: [id number] [place] [address] E410 04/01/2021 Appointment: Anna Culver WPtel: [address] [place] [address] ETV 03/24/2021 Appointment: Anna Culver WPtel: [address] [place] [address] ETV 03/13/2021 Appointment: Anna Culver WPtel: [address] [place] [address] E410 02/11/2021 Appointment: Chivo Bishop WPtel: [address] [place] [address] E410 01/29/2021 Appointment: Anna Culver WPtel: [address] [place] [address] ETV 01/13/2021 Appointment: Anna Culver WPtel: [address] [place] [address] E410 12/17/2020 Appointment: Chivo Bishop WPtel: [address] [place] [address] ETV 11/28/2020 Appointment: Anna Culver WPtel: [address] [place] [address] ETV 11/24/2020 Appointment: Anna Culver WPtel: [address] [place] [address] E410 10/29/2020 Appointment: Anna Culver WPtel: [address] [place] [address] E410 09/24/2020 Appointment: Anna Culver WPtel: [address] [place] [address] ETV 08/26/2020 Appointment: Anna Culver WPtel: [id number] [place] [address] ETV 08/19/2020 Appointment: Anna Culver WPtel: [address] [place] [address] ETV 07/22/2020 Appointment: Anna Culver WPtel: [address] [place] [address] ETV 07/08/2020 Appointment: Gianna [place]: [address] [facility] 100 [id number] [place] ECHO 07/02/2020 Appointment: Anna Culver WPtel: [address] [place] [address] E452 06/11/2020 Appointment: Anna Culver WPtel: [address] [place] [address] E452 05/14/2020 Appointment: Anna Culver WPtel: [address] [place] [address] E452 04/17/2020 Appointment: Anna Culver WPtel: [address] [place] [address] E452 03/21/2020 Appointment: Anna Culver WPtel: [address] [place] [address] [place] E452 02/14/2020 Appointment: Anna Culver WPtel: [address] [place] [address] [place] E452 01/24/2020 Appointment: Anna Culver WPtel: [address] [place] [address] [place] E452 01/01/2020 Appointment: Anna Culver WPtel: [address] [place] [address] [place] E452 11/28/2019 Appointment: Anna Culver WPtel: [address] [place] [address] [place] E452 10/17/2019 Appointment: Anna Culver WPtel: [address] [place], [place] [address]OH[address] E452 09/19/2019 Appointment: Sudha Hernadez WPtel: [address] [facility] b [id number] E452 07/04/2019 Appointment: Sudha Hernadez WPtel: [address] [facility] [id number] E452 06/21/2019 Appointment: Charlene Oropeza WPtel: [address] [place] [address] [id number] E452 05/24/2019 Appointment: Mallory Delgado E452 04/27/2019 Appointment: Charlene Oropeza WPtel: [address] [facility] [id number] E452 04/25/2019 Appointment: Rasta Palafox WPtel: [address] [facility] [id number] E452 03/28/2019 Appointment: Rasta Palafox WPtel: [address] [facility] b [id number] E452 02/14/2019 Appointment: Rasta Palafox WPtel: [address] [facility] b [id number] E452 01/31/2019 Appointment: Rasta Palafox WPtel: [address] [facility] [id number] E420 12/27/2018 Referral: Pending Gynecology Referral Information Referral Processed Referral: Pending Pulmonolog y Referral Information Referral Processed Referral: Pending Psychiatry Referral Information Referral Initiated Referral: Pending Respirator y Services Referral Information Referral Initiated Referral: Pending Ophthalmology Referral Information Ref[facility] WPtel: [address] [employer] placed a call out to the patient to notify her that it has been recommended that she be seen by a urologist. Patient agreed to be seen, does not have a provider of choice and no transportation issues. [employer] faxed referral and clinical notes to [facility] in [place], [place] near the patient's home. Patient [...] seen and prefers a provider in the [place] or [place] area. [employer] Associate placed a call out to everyone listed in the area and the only location that was able to accept the patient's insurance was [address] [phone] and spoke with Maylin. Maylin asked that the patient's referral, face sheet and visit notes be faxed to . [employer] faxed over requested documents. Patient appointment confirmation letter generated and mailed to her home address. Patient to call to schedule an appointment. Processed Referral: [facility] WPtel: [address] [place], [place] [id number] Patient notified that it has been advised that she be seen by Neurology. Patient agreed to be seen and prefers to be seen by a provider in the [place], [place] area. Patient denies any concerns with transportation, and prefers to schedule her own appointment. [employer] Associate placed a call out to [facility] [...] Send copy of labs to Michell Matamoros [phone] [id number] Type 2 diabetes mellitus with peripheral neuropathy Continues with varied blood sugars, elevations may be secondary to infectious process, continues with ozempic and januvia will check hgb a1c I11.9-402.90 Hypertensive heart disease without heart failure stable with current medications, will order labs J06.9-465.9 Upper respiratory infection will send prescription for Amoxicillin to local pharmacy 09/20/2023 Medical Equipment No Medical Equipment data Advance Directives No Advance Directive data
--- OUTSIDE RECORDS SUMMARY | 2024-01-03 23:28 | XMS_ITS | CCD ---
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 Unknown Has never used illegal drugs 05/31/2018 DNR Order/ Advanced Directive Unknown Full Code 05/31/2018 Allergies, Adverse Reactions, Alerts Substance Reaction Codes Entered Date Inactivated Date Status OxyContin itch, RxNorm: 233059 01/13/2021 No Inactive Da te Active *No [...] ICD-10: E78. 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 USP (current) use of non-steroidal anti-inflammatories (NSAID) [...] 784.0 10/03/2018 Inactive Other [facility] (current) dr edith therapy ICD-10: Z79.899 ICD-9: V58.69 04/25/2019 Inactive Type 2 diabetes mellitus wit hout complications ICD-10: E11.9 ICD-9: 250.00 10/03/2018 Inactive Wheezing ICD-10: R06.2 ICD-9: 786.07 08/08/2018 Inactive Abnormal urine finding ICD-10: R82.90 ICD-9: 791.9 09/24/2020 Resolved Abrasion of toe ICD-10: S90.416A ICD-9: 917.0 02/14/2020 Resolved [place] [facility] ICD-10: H10.029 ICD-9: 372.03 12/29/2019 Resolved [...] Instructions omeprazole 40 mg capsule,delayed release RxNorm: 283677 Take 1 Capsule(s) Oral HS 08/19/2 023 2022 Inactive Januvia 50 mg tablet RxNorm: 293079 Take 1 Tablet(s) Oral two times a day 023 2023 Inactive famotidine 20 mg tablet RxNorm: 601663 TAKE 1 TABLET BY MOUTH EACH MORNING 023 2023 Active Januvia 25 mg tablet RxNorm: 971438 Take 1 Tablet(s) Oral every day 023 2022 Inactive Ozempic 1 mg/dose (4 mg/3 mL) subcutaneous pen injector RxNorm: 2133680 INJECT 1 UNITS DOSE SUBCUTANEOUSLY ON TUESDAY OF EACH WEEK 023 2022 Inactive cetirizine 10 mg tablet RxNorm: 9898887 TAKE (1) TABLET BY MOUTH DAILY 023 2023 Inactive amoxicillin 500 mg tablet RxNorm: 153903 Take 1 Tablet(s) Oral two times a day 023 2022 Inactive omeprazole 40 mg capsule,delayed release RxNorm: 576365 Take 1 Capsule(s) Oral at bed time 023 2022 Inactive Easy Touch Alcohol Prep Pads RxNorm: 564978 USE EACH MORNING 023 2024 Active montelukast 10 mg tablet RxNorm: 115721 Take 1 Tablet(s) Oral every day 023 2022 Inactive gabapentin 300 mg capsule RxNorm: 272068 Take 1 Capsule(s) Oral three times a day 023 2022 Inactive metformin ER 500 mg 24 hr tablet,extended release RxNorm: 8102748 Take 1 Tablet(s) Oral every day with the evening meal 023 2022 Inactive famotidine 20 mg tablet RxNorm: 804482 Take 1 Tablet(s) Oral every morning 023 2022 Inactive levothyroxine 50 mcg tablet RxNorm: 719625 Take 1 Tablet(s) Oral every day 023 2023 Active Msg From [facility]: Dr. Zapata Requested hydrochlorothiazide 25 mg tablet RxNorm: 913956 Take 1 Tablet(s) Oral every day 023 2023 Active Msg From [facility]: Approval Requested atorvastatin 20 mg tablet RxNorm: 459323 Take 1 Tablet(s) Oral every night at bedtime 023 2023 Active Macrobid 100 mg capsule RxNorm: 736834 1 Capsule(s) Oral every 12 hours with food 023 2022 Inactive omeprazole 40 mg capsule,delayed release RxNorm: 20021111 Take 1 Capsule(s) Oral every night at bedtime 023 2022 Inactive trazodone 50 mg tablet RxNorm: 147970 Administer 1 Tablet(s) Oral every night at bedtime 023 No Stop Date Active cholecalciferol (vitamin D3) 50 mcg (2,000 unit) tablet RxNorm: 901566 Take 1 Tablet(s) Oral every day 023 2023 Active Ozempic 1 mg/dose (4 mg/3 mL) subcutaneous pen injector RxNorm: 2537911 USE 1 UNIT DOSE SUBCUTANEOUSLY ON TUE OF EACH WEEK 023 2022 Inactive lisinopril 2.5 mg tablet RxNorm: 035174 Take 1 Tablet(s) Oral every day 023 2022 Inactive Msg From [facility]: Approval Requested Ozempic 1 mg/dose (4 mg/3 mL) subcutaneous pen injector RxNorm: 9111744 USE 1 UNIT DOSE SUBCUTANEOUSLY ON TUE OF EACH WEEK 023 2022 Inactive omeprazole 40 mg capsule,delayed release RxNorm: 20021111 Take 1 Capsule(s) Oral every night at bedtime 023 2022 Inactive gabapentin 300 mg capsule RxNorm: 285917 Take 1 Capsule(s) Oral three times a day 023 2022 Inactive montelukast 10 mg tablet RxNorm: 632729 Take 1 Tablet(s) Oral every day 023 2022 Inactive omeprazole 20 mg capsule,delayed release RxNorm: 522286 Take 1 Capsule(s) Oral every evening 12/15/11 Inactive Alcohol Prep Pads RxNorm: 160309 USE EACH MORNING 2021 Inactive E11.42 clotrimazole 1 % topical cream RxNorm: 201026 Apply 1 Application Topical two times a day as needed apply to affected area(s) twice daily until healed 2021 Inactive Victoza 2-Sebastián 0.6 mg/0.1 mL (18 mg/3 mL) subcutaneous pen injector RxNorm: 817806 Inject 0.6-1.8 Milligram(s) Subcutaneous once a week Inject 0.6mg/0.1ml week one, 1.2mg/0.2ml week two, 1.8/0.3ml weekly thereafter 2021 Inactive ibuprofen 800 mg tablet RxNorm: 118812 Take 1 Tablet(s) Oral Q8H as needed for pain take with food No Stop Date Active Ozempic 1 mg/dose (4 mg/3 mL) subcutaneous pen injector RxNorm: 1308054 Take 1 Unit Dose Subcutaneous QWeek Tuesday2021 Inactive lisinopril 2.5 mg tablet RxNorm: 870692 Take 1 Tablet(s) Oral every day 022 2021 Inactive lisinopril 2.5 mg tablet RxNorm: 870746 Take 1 Tablet(s) Oral every day 2022 Inactive hydrochlorothiazide 25 mg tablet RxNorm: 661566 Take 1 Tablet(s) Oral every day 022 2021 Inactive Ozempic 1 mg/dose (4 mg/3 mL) subcutaneous pen injector RxNorm: 8889723 Take 1 Unit Dose Subcutaneous QWeek 022 2021 Inactive famotidine 20 mg tablet RxNorm: 695296 Take 1 Tablet(s) Oral every morning 022 2021 Inactive levothyroxine 50 mcg tablet RxNorm: 319285 Take 1 Tablet(s) Oral every day 022 07/29/ 2022 Inactive atorvastatin 20 mg tablet RxNorm: 394768 Take 1 Tablet(s) Oral every night at bedtime 022 2021 Inactive Cleocin T 1 % lotion RxNorm: 850951 Take 2 Gram(s) Topical every day 022 2021 Inactive Cleocin T 1 % lotion RxNorm: 598277 Take 2 Gram(s) Topical every day 2021 Inactive Ozempic 1 mg/dose (4 mg/3 mL) subcutaneous pen injector RxNorm: 2294625 Take 1 Unit Dose Subcutaneous QWeek 022 2021 Inactive Ozempic 0.25 mg or 0.5 mg (2 mg/1.5 mL) subcutaneous pen injector RxNorm: 3166509 INJECT 0.5 MGS SUBCUTANEOUSLY EVERY WEEK 022 2021 Inactive omeprazole 20 mg capsule,delayed release RxNorm: 572533 Take 1 Capsule(s) Oral every evening 022 2021 Inactive levothyroxine 50 mcg tablet RxNorm: 499884 Take 1 Tablet(s) Oral every day 022 2021 Inactive atorvastatin 20 mg tablet RxNorm: 350675 Take 1 Tablet(s) Oral every night at bedtime 2021 Inactive This refill negates all other refills of this medication lisinopril 2.5 mg tablet RxNorm: 612948 Take 1 Tablet(s) Oral every day 2021 Inactive gabapentin 300 mg capsule RxNorm: 544809 Take 1 Capsule(s) Oral three times a day 022 2021 Inactive montelukast 10 mg tablet RxNorm: 719754 Take 1 Tablet(s) Oral every day 022 2021 Inactive Myrbetriq 50 mg tablet,extended release RxNorm: 5218165 1 Tablet(s) Oral every day No Stop Date Active cholecalciferol (vitamin D3) 50 mcg (2,000 unit) tablet RxNorm: 115781 Take 1 Tablet(s) Oral every day 2022 Inactive Ozempic 0.25 mg or 0.5 mg (2 mg/1.5 mL) subcutaneous pen injector RxNorm: 5893381 inject 0.5 milligrams subcutaneously every week 022 2021 Inactive Ozempic 0.25 mg or 0.5 mg (2 mg/1.5 mL) subcutaneous pen injector RxNorm: 8432155 Take 0.5 Capsule(s) Injection once a week 2021 Inactive omeprazole 20 mg capsule,delayed release RxNorm: 636394 Take 1 Capsule(s) Oral every evening 2020 Inactive Ozempic 0.25 mg or 0.5 mg (2 mg/1.5 mL) subcutaneous pen injector RxNorm: 0002176 Take 0.25 Milligram(s) Subcutaneous once a week 2021 Inactive Easy Touch Alcohol Prep Pads RxNorm: 614613 USE DIRECTED EACH MORNING 2021 Inactive Probiotic 10 billion cell capsule RxNorm: 7570549 Take 1 Capsule(s) Oral every day 2021 Inactive levothyroxine 50 mcg tablet RxNorm: 105436 Take 1 Tablet(s) Oral every day 2020 Inactive Acid Diesel Plant Operator (famotidine) 20 mg tablet RxNorm: 742647 Take 1 Tablet(s) Oral every morning 2020 Inactive Heartburn Relief (famotidine) 10 mg tablet RxNorm: 870735 Take 1 Tablet(s) Oral QAM 2020 Inactive levothyroxine 50 mcg tablet RxNorm: 689912 Take 1 Tablet(s) Oral QD 2020 Inactive Singulair 10 mg tablet RxNorm: 345022 TAKE (1) TABLET BY MOUTH DAILY 2020 Inactive metformin 1,000 mg tablet RxNorm: 374425 1 Tablet(s) Oral two times a day 2021 Inactive lisinopril 2.5 mg tablet RxNorm: 646549 Take 1 Tablet(s) Oral every day 021 2020 Inactive hydrochlorothiazide 25 mg tablet RxNorm: 250561 Take 1 Tablet(s) Oral every day 021 2020 Inactive ondansetron 4 mg disintegrating tablet RxNorm: 183357 1 Tablet(s) Oral two times a day 021 2020 Inactive Sudafed 12 Hour 120 mg tablet,extended release RxNorm: 6457170 TAKE 1 TABLET BY MOUTH EVERY 12 HOURS NEEDED 021 2021 Inactive Heartburn Relief (famotidine) 10 mg tablet RxNorm: 338714 Take 1 Tablet(s) Oral every morning 021 2020 Inactive omeprazole 20 mg capsule,delayed release RxNorm: 351438 1 Capsule(s) Oral every evening 021 2020 Inactive sertraline 100 mg tablet RxNorm: 547407 2 Tablet(s) Oral every day 021 2020 Inactive levothyroxine 50 mcg tablet RxNorm: 130598 TAKE (1) TABLET BY MOUTH DAILY 021 2020 Inactive metformin 500 mg tablet RxNorm: 455974 1 Tablet(s) Oral two times a day take with 500mg to equal 1000mg 021 2020 Inactive gabapentin 300 mg capsule RxNorm: 454838 TAKE 1 CAPSULE BY MOUTH THREE TIMES A DAY 021 2020 Inactive lisinopril 2.5 mg tablet RxNorm: 535022 TAKE 1 TABLET BY MOUTH DAILY 021 2020 Inactive gabapentin 300 mg capsule RxNorm: 149637 TAKE 1 CAPSULE BY MOUTH THREE TIMES A DAY 021 2020 Inactive Singulair 10 mg tablet RxNorm: 644185 TAKE (1) TABLET BY MOUTH DAILY 021 2020 Inactive metformin 1,000 mg tablet RxNorm: 051282 1 Tablet(s) Oral two times a day 021 2020 Inactive atorvastatin 40 mg tablet RxNorm: 402370 1 Tablet(s) Oral every day 021 2020 Inactive omeprazole 20 mg capsule,delayed release RxNorm: 634418 1 Capsule(s) Oral every evening 021 2020 Inactive famotidine 10 mg tablet RxNorm: 752625 1 Tablet(s) Oral every morning 021 2020 Inactive Alcohol Prep Pads RxNorm: 501077 USE EACH MORNING 021 2020 Inactive omeprazole 20 mg capsule,delayed release RxNorm: 838674 1 Capsule(s) Oral two times a day 2021 Inactive omeprazole 20 mg capsule,delayed release RxNorm: 139460 TAKE 1 CAPSULE BY MOUTH EVERY DAY 2021 Inactive Macrobid 100 mg capsule RxNorm: 047759 1 Capsule(s) Oral every 12 hours with food 2020 Inactive omeprazole 20 mg capsule,delayed release RxNorm: 320652 1 Capsule(s) Oral two times a day 2021 Inactive metformin 1,000 mg tablet RxNorm: 224156 1 Tablet(s) Oral two times a day 2020 Inactive start on September 11, 2020 metformin 500 mg tablet RxNorm: 872086 1 Tablet(s) Oral two times a day take with 500mg to equal 1000mg 2019 Inactive gabapentin 300 mg capsule RxNorm: 852279 TAKE 1 CAPSULE BY MOUTH THREE TIMES DAILY 2020 Inactive cetirizine 10 mg tablet RxNorm: 1468975 TAKE (1) TABLET BY MOUTH DAILY 2020 Inactive metformin 500 mg tablet RxNorm: 928974 1 Tablet(s) Oral two times a day 020 2019 Inactive loperamide 2 mg tablet RxNorm: 441817 1 Tablet(s) Oral as needed take one tablet after each loose stool, maximum of 8 tablets in 24 hours 020 2021 Inactive Sudafed 12 Hour 120 mg tablet,extended release RxNorm: 3282689 TAKE 1 TABLET BY MOUTH EVERY 12 HOURS NEEDED 2019 Inactive hydrochlorothiazide 25 mg tablet RxNorm: 200897 TAKE (1) TABLET BY MOUTH EVERY DAY 020 2019 Inactive omeprazole 20 mg capsule,delayed release RxNorm: 446806 TAKE 1 CAPSULE BY MOUTH EVERY DAY 020 2020 Inactive metformin 500 mg tablet RxNorm: 053215 1 Tablet(s) Oral every day 2019 Inactive True Metrix Glucose Test Strip RxNorm: 1 Test Strips Miscellaneous two times a day as needed No Stop Date Active metformin 500 mg tablet RxNorm: 333967 1 Tablet(s) Oral every day 2019 Inactive diclofenac sodium 75 mg tablet,delayed release RxNorm: 872554 1 Tablet(s) PO BID 2021 Inactive This refill negates all other refills of this medication Sudafed 12 Hour 120 mg tablet,extended release RxNorm: 5114369 TAKE 1 TABLET BY MOUTH EVERY 12 HOURS NEEDED 020 2019 Inactive True Metrix Glucose Test Strip RxNorm: 1 Test Strips Miscellaneous every morning 2019 Inactive 100/container True Metrix Glucose Test Strip RxNorm: 1 Test Strips Miscellaneous [facility] 020 2019 Inactive 100/container loperamide 2 mg tablet RxNorm: 242490 1 Tablet(s) Oral as needed take one tablet after each loose stool, maximum of 8 tablets in 24 hours 020 2019 Inactive cetirizine 10 mg tablet RxNorm: 1949657 1 Tablet(s) PO daily 2019 Inactive loperamide 2 mg tablet RxNorm: 302206 1 Tablet(s) Oral as needed take one tablet after each loose stool, maximum of 8 tablets in 24 hours 04/16/2019 Inactive quetiapine 100 mg tablet RxNorm: 641649 1 Tablet(s) Oral every night at bedtime 2019 Inactive levothyroxine 50 mcg tablet RxNorm: 926822 1 Tablet(s) PO daily 2020 Inactive gabapentin 300 mg capsule RxNorm: 592575 1 Capsule(s) PO TID 2019 Inactive levothyroxine 50 mcg tablet RxNorm: 049922 1 Tablet(s) PO daily 2019 Inactive lisinopril 2.5 mg tablet RxNorm: 310449 1 Tablet(s) PO daily 2020 Inactive gabapentin 300 mg capsule RxNorm: 436786 1 Capsule(s) PO TID 2019 Inactive cetirizine 10 mg tablet RxNorm: 3411720 1 Tablet(s) PO daily 2019 Inactive Singulair 10 mg tablet RxNorm: 022583 1 Tablet(s) PO daily 2020 Inactive gentamicin 0.3 % eye drops RxNorm: 032839 1 Drop(s) ophthalmic (eye) four times a day 2019 Inactive gentamicin 0.3 % eye drops RxNorm: 596409 1 Drop(s) ophthalmic (eye) four times a day 2019 Inactive gentamicin 0.3 % eye drops RxNorm: 206811 1 Drop(s) ophthalmic (eye) four times a day 2019 Inactive hydrochlorothiazide 25 mg tablet RxNorm: 188292 1 Tablet(s) Oral every day 2019 Inactive Sudafed 12 Hour 120 mg tablet,extended release RxNorm: 7337331 TAKE (1) TABLET BY MOUTH EVERY 12 HOURS NEEDED 2019 Inactive loperamide 2 mg tablet RxNorm: 040706 1 Tablet(s) Oral as needed take one tablet after each loose stool, maximum of 8 tablets in 24 hours 2019 Inactive loperamide 2 mg tablet RxNorm: 587433 1 Tablet(s) Oral as needed take one tablet after each loose stool, maximum of 8 tablets in 24 hours 2019 Inactive atorvastatin 40 mg tablet RxNorm: 960638 1 Tablet(s) Oral every day 2020 Inactive quetiapine 100 mg tablet RxNorm: 697687 1 Tablet(s) Oral every night at bedtime 2019 Inactive sertraline 100 mg tablet RxNorm: 427600 1 Tablet(s) Oral 2019 Inactive omeprazole 20 mg capsule,delayed release RxNorm: 462753 1 Capsule(s) Oral every day 2019 Inactive amoxicillin 250 mg capsule RxNorm: 255969 1 Capsule(s) Oral three times a day 2019 Inactive multivitamin with iron-mineral tablet RxNorm: 1 Tablet(s) Oral every day 2021 Inactive cetirizine 10 mg tablet RxNorm: 0014319 1 Tablet(s) PO daily 2019 Inactive This refill negates all other refills of this medication. Please do not auto refill Singulair 10 mg tablet RxNorm: 995646 1 Tablet(s) PO daily 2019 Inactive This refill negates all other refills of this medication gabapentin 300 mg capsule RxNorm: 785234 1 Capsule(s) PO TID 2019 Inactive lisinopril 2.5 mg tablet RxNorm: 610732 1 Tablet(s) PO daily 2019 Inactive levothyroxine 50 mcg tablet RxNorm: 299041 1 Tablet(s) PO daily 2019 Inactive This refill negates all other refills of this medication hydrochlorothiazide 25 mg tablet RxNorm: 719966 1 Tablet(s) Oral every day 2019 Inactive fenugreek seed extract 500 mg capsule RxNorm: 1 Capsule(s) Oral three times a day 020 2021 Inactive Alcohol Prep Pads RxNorm: 214164 1 Patch TOP QAM 2020 Inactive loperamide 2 mg tablet RxNorm: 784319 1 Tablet(s) Oral as needed take one [...] 2019 Inactive hydrochlorothiazide 25 mg tablet RxNorm: 601344 1 Tablet(s) Oral every day 2019 Inactive Sudafed 12 Hour 120 mg tablet,extended release RxNorm: 1728431 1 Tablet(s) Oral every 12 hours as needed 2018 Inactive omeprazole 20 mg capsule,delayed release RxNorm: 261799 1 Capsule(s) Oral every day 2019 Inactive Sudafed 12 Hour 120 mg tablet,extended release RxNorm: 5254243 1 Tablet(s) Oral every 12 hours as needed 2018 Inactive pantoprazole 40 mg tablet,delayed release RxNorm: 999660 1 Tablet(s) Oral every day 2018 Inactive discontinue any other H2Blkr. and PPI albuterol sulfate 2.5 mg/3 mL (0.083 %) solution for nebulization RxNorm: 502059 1 Vial Inhalation every four hours as needed as needed for dyspnea 2019 Inactive 60/box. This refill negates all other refills of this medication. Please do not fill early. Please do not auto refill. Symbicort 160 mcg-4.5 mcg/actuation HFA aerosol inhaler RxNorm: 9789927 2 Puff(s) INH BID No Stop Date Active Alcohol Prep Pads RxNorm: 783360 1 Patch TOP QAM 019 2019 Inactive Ventolin HFA 90 mcg/actuation aerosol inhaler RxNorm: 246197 2 Puff(s) INH QID 019 2019 Inactive Please do not fill early. Please do not auto refill. This refill negates all other refills of this medication True Metrix Glucose Test Strip RxNorm: 1 Test Strips Miscellaneous QA 019 2019 Inactive 100/container atorvastatin 40 mg tablet RxNorm: 375729 1 Tablet(s) Oral every day 019 2019 Inactive buspirone 7.5 mg tablet RxNorm: 158266 1 Tablet(s) PO BID 019 2020 Inactive This refill negates all other refills of this medication hydrochlorothiazide 12.5 mg tablet RxNorm: 532464 1 Tablet(s) PO QAM 019 2019 Inactive levmetamfetamine 50 mg nasal inhaler RxNorm: 1 Unit(s) NASAL Q3-4H Do not use more than every 3 hours or 8 times/24hours 019 2021 Inactive Please do not auto refill. This refill negates all other refills of this medication Ventolin HFA 90 mcg/actuation aerosol inhaler RxNorm: 147704 2 Puff(s) INH QID 019 2018 Inactive Please do not fill early. Please do not auto refill. This refill negates all other refills of this medication Singulair 10 mg tablet RxNorm: 025818 1 Tablet(s) PO daily 019 2019 Inactive This refill negates all other refills of this medication cetirizine 10 mg tablet RxNorm: 0023309 1 Tablet(s) PO daily 019 2019 Inactive This refill negates all other refills of this medication. Please do not auto refill levothyroxine 50 mcg tablet RxNorm: 051192 1 Tablet(s) PO daily 019 2019 Inactive This refill negates all other refills of this medication diclofenac sodium 75 mg tablet,delayed release RxNorm: 667055 1 Tablet(s) PO BID 019 2019 Inactive This refill negates all other refills of this medication ranitidine 150 mg tablet RxNorm: 208777 1 Tablet(s) PO BID 019 2018 Inactive This refill negates all other refills of this medication Calcium 600-D3 Plus (mag-zinc) 600 mg calcium-800 unit-50 mg tablet RxNorm: 1 Tablet(s) PO daily take an additonal tablet for itching. 2018 Inactive This refill negates all other refills of this medication albuterol sulfate 2.5 mg/3 mL (0.083 %) solution for nebulization RxNorm: 446878 1 Vial INH QID 2018 Inactive 60/box. This refill negates all other refills of this medication. Please do not fill early. Please do not auto refill. lisinopril 2.5 mg tablet RxNorm: 076959 1 Tablet(s) PO daily 019 2019 Inactive gabapentin 300 mg capsule RxNorm: 787577 1 Capsule(s) PO TID 019 2019 Inactive atorvastatin 20 mg tablet RxNorm: 689531 1 Tablet(s) PO QHS 019 2018 Inactive This refill negates all other refills of this medication TRUEplus Lancets 30 gauge RxNorm: 1 Lancets Miscellaneous QAM 019 2018 Inactive 100/box gabapentin 300 mg capsule RxNorm: 677744 1 Capsule(s) PO TID 019 2018 Inactive Flintstones Complete (iron) 18 mg iron chewable tablet RxNorm: 1 Tablet(s) PO daily 019 2021 Inactive This refill negates all other refills of this medication gabapentin 300 mg capsule RxNorm: 116201 1 Capsule(s) PO TID as needed 019 2018 Inactive True Metrix Glucose Test Strip RxNorm: 1 Test Strips Miscellaneous QAM 019 2018 Inactive 100/container Alcohol Prep Pads RxNorm: 594540 1 Patch TOP QAM 019 2018 Inactive TRUEplus Lancets 30 gauge RxNorm: 1 Lancets Miscellaneous QAM 019 2018 Inactive 100/box lisinopril 2.5 mg tablet RxNorm: 745521 1 Tablet(s) PO daily 019 2018 Inactive ranitidine 150 mg tablet RxNorm: 282168 1 Tablet(s) PO BID 019 2018 Inactive This refill negates all other refills of this medication albuterol sulfate 2.5 mg/3 mL (0.083 %) solution for nebulization RxNorm: 606660 1 Vial INH QID 019 2018 Inactive [...] this medication gabapentin 300 mg capsule RxNorm: 920602 1 Capsule(s) PO TID as needed 019 2018 Inactive atorvastatin 20 mg tablet RxNorm: 093167 1 Tablet(s) PO QHS 019 2018 Inactive This refill negates all other refills of this medication trazodone 50 mg tablet RxNorm: 670173 1 Tablet(s) PO QHS 019 2018 Inactive This refill negates all other refills of this medication Ventolin HFA 90 mcg/actuation aerosol inhaler RxNorm: 892366 2 Puff(s) INH QID 019 2018 Inactive Please do not fill early. Please do not auto refill. This refill negates all other refills of this medication Calcium 600-D3 Plus 600 mg calcium-800 unit-50 mg tablet RxNorm: 1 Tablet(s) PO daily take an additonal tablet for itching. 019 2018 Inactive This refill negates all other refills of this medication Singulair 10 mg tablet RxNorm: 966716 1 Tablet(s) PO daily 019 2018 Inactive This refill negates all other refills of this medication buspirone 7.5 mg tablet RxNorm: 611576 1 Tablet(s) PO BID 019 2018 Inactive This refill negates all other refills of this medication diclofenac sodium 75 mg tablet,delayed release RxNorm: 718074 1 Tablet(s) PO BID 019 2018 Inactive This refill negates all other refills of this medication hydrochlorothiazide 12.5 mg tablet RxNorm: 659904 1 Tablet(s) PO QAM 019 2018 Inactive metoprolol succinate ER 50 mg tablet,extended release 24 hr RxNorm: 748506 1 Tablet(s) PO daily 019 2018 Inactive This refill negates all other refills of this medication levothyroxine 50 mcg tablet RxNorm: 355678 1 Tablet(s) PO daily 019 2018 Inactive This refill negates all other refills of this medication cetirizine 10 mg tablet RxNorm: 3792981 1 Tablet(s) PO daily 019 2018 Inactive This refill negates all other refills of this medication. Please do not auto refill Flintstones Complete (iron) 18 mg iron chewable tablet RxNorm: 1 Tablet(s) PO daily 019 2018 Inactive This refill negates all other refills of this medication buspirone 7.5 mg tablet RxNorm: 376848 1 Tablet(s) PO BID 2018 Inactive cetirizine 10 mg tablet RxNorm: 0400767 1 Tablet(s) PO daily 2018 Inactive Guaiasorb DM 10 mg-100 mg/5 mL oral liquid RxNorm: 084215 10 Milliliter(s) PO As needed every 4 hr 2018 Inactive Vicks Vaporub 4.7 %-1.2 %-2.6 % topical ointment RxNorm: 2180240 1 Application TOP TID 2018 Inactive levmetamfetamine 50 mg nasal inhaler RxNorm: 1 Unit(s) NASAL Q3-4H 2017 Inactive sertraline 50 mg tablet RxNorm: 231923 1 Tablet(s) PO daily 2018 Inactive Please note dose trazodone 50 mg tablet RxNorm: 039662 1 Tablet(s) PO QHS 2018 Inactive sertraline 50 mg tablet RxNorm: 508784 1 Tablet(s) PO daily 2017 Inactive amoxicillin 500 mg tablet RxNorm: 198629 1 Tablet(s) PO Q12H 2017 Inactive albuterol sulfate 2.5 mg/3 mL (0.083 %) solution for nebulization RxNorm: 794369 1 Vial INH QID 2018 Inactive 60/box. Please do not fill early. Please do not auto refill. Prozac 10 mg capsule RxNorm: 309001 1 Capsule(s) PO daily 2017 Inactive buspirone 7.5 mg tablet RxNorm: 598077 1 Tablet(s) PO BID 018 2018 Inactive gabapentin 300 mg capsule RxNorm: 740510 1 Capsule(s) PO TID as needed 2018 Inactive hydrochlorothiazide 12.5 mg tablet RxNorm: 275446 1 Tablet(s) PO QAM 018 2018 Inactive ranitidine 150 mg tablet RxNorm: 855944 1 Tablet(s) PO BID 018 2018 Inactive Macrobid 100 mg capsule RxNorm: 933030 1 Capsule(s) PO Q12H 018 2017 Inactive Singulair 10 mg tablet RxNorm: 952599 1 Tablet(s) PO daily 018 2018 Inactive Ventolin HFA 90 mcg/actuation aerosol inhaler RxNorm: 1670873 2 Puff(s) INH QID 018 2018 Inactive Singulair 10 mg tablet RxNorm: 010855 1 Tablet(s) PO daily 018 2017 Inactive buspirone 7.5 mg tablet RxNorm: 775321 1 Tablet(s) PO BID 018 2017 Inactive Prozac 10 mg capsule RxNorm: 060030 1 Capsule(s) PO daily 018 2017 Inactive diclofenac sodium 75 mg tablet,delayed release RxNorm: 138008 1 Tablet(s) PO BID 018 2017 Inactive lisinopril 2.5 mg tablet RxNorm: 551976 1 Tablet(s) PO daily 018 2017 Inactive Neilmed Pediatric Sinus Rinse Refill packet RxNorm: 1 Unit Dose NASAL PRN 018 2021 Inactive metoprolol succinate ER 50 mg tablet,extended release 24 hr RxNorm: 971289 1 Tablet(s) PO daily 018 2017 Inactive levothyroxine 50 mcg tablet RxNorm: 015658 1 Tablet(s) PO daily 018 2017 Inactive TRUEplus Lancets 30 gauge RxNorm: 1 Lancets Miscellaneous QAM 018 2017 Inactive 100/box Ventolin HFA 90 mcg/actuation aerosol inhaler RxNorm: 687823 2 Puff(s) INH QID 018 2017 Inactive Aleve 220 mg capsule RxNorm: 6751856 1 Capsule(s) PO BID 018 2018 Inactive ranitidine 150 mg tablet RxNorm: 149389 1 Tablet(s) PO BID 018 2017 Inactive gabapentin 300 mg capsule RxNorm: 593715 1 Capsule(s) PO TID as needed 018 2017 Inactive atorvastatin 20 mg tablet RxNorm: 720069 1 Tablet(s) PO QHS 018 2017 Inactive True Metrix Glucose Test Strip RxNorm: 1 Test Strips Miscellaneous QAM 018 2017 Inactive 50/container Calcium 600-D3 Plus 600 mg calcium-800 unit-50 mg tablet RxNorm: 1 Tablet(s) PO daily take an additonal tablet for itching. 018 2017 Inactive hydrochlorothiazide 12.5 mg tablet RxNorm: 076381 1 Tablet(s) PO QAM 018 2017 Inactive [place] Complete (iron) 18 mg iron chewable tablet RxNorm: 1 Tablet(s) PO daily 018 2017 Inactive True Metrix Glucose Meter RxNorm: miscellaneous 019 2018 Inactive sertraline 50 mg tablet RxNorm: 829347 1 Tablet(s) PO daily 020 2019 Inactive loperamide 2 mg tablet RxNorm: 297184 oral 019 2018 Inactive d-mannose oral powder RxNorm: PO 018 2021 Inactive Symbicort 160 mcg-4.5 mcg/actuation HFA aerosol inhaler RxNorm: 8778706 2 Puff(s) INH BID 019 2018 Inactive Medication Administered No Medication Administered data Procedures Procedure Codes Date Patient Health Questionnaire CPT-4: DPHQ Electrocardiogram CPT-4: 00243 06/24/2023 Urinalysis, dip stick CPT-4: 44338 05/04/2023 [place] Assessment CPT-4: DSWA 01/02 Fall Risk Assessment CPT-4: DFRA 01/27/2023 Hypertension CPT-4: HTN 01/27/2023 Patient Health Questionnaire CPT-4: DPHQ Pain Screening CPT-4: PAS 2022 Tobacco Assessment/Screening CPT-4: TCA Hypertension CPT-4: HTN 08/17/2022 [place] Assessment CPT-4: DSWA 04/02 Patient Health [...] CPT-4: VACP Fall Risk Assessment SNOMED CT: 35086448 4 CPT-4: DFRA 01/13/2021 [place] Assessment CPT-4: DSWA 12/01 Urinalysis, dip stick CPT-4: 03284 09/24/2020 Patient Health Questionnaire CPT-4: DPHQ Electrocardiogram CPT-4: 96624 05/14/2020 Tobacco Assessment/Screening CPT-4: TCA Fall Risk Assessment SNOMED CT: 51257491 4 CPT-4: DFRA 01/01/2020 Functional Assessment CPT-4: DFA 01/01/2020 [place] Assessment CPT-4: DSWA 11/04 Patient Health Questionnaire CPT-4: DPHQ [place] Assessment CPT-4: DSWA 10/03 Hypertension CPT-4: HTN 10/17/2019 Fall Risk Assessment SNOMED CT: 11717145 4 CPT-4: DFRA 09/19/2019 Functional Assessment CPT-4: DFA 09/19/2019 Urinalysis, dip stick CPT-4: 88510 06/21/2019 Tobacco Assessment/Screening CPT-4: TCA Patient Health Questionnaire CPT-4: DPHQ AHA/REBECCA Classification Assessment CPT-4: DAHA 04/25/2019 Controlled Substance Report CPT-4: CTRSU 04/03 Urinalysis, dip stick CPT-4: 19345 03/28/2019 Urinalysis, dip stick CPT-4: 62438 03/28/2019 A4X-Ynidztuanjklpie CPT-4: 42019 Unknown P4P-Krpqzafrqxdblik CPT-4: 43012 Unknown N0W-Pjddzcyczqwjgni CPT-4: 53553 Unknown G3R-Oiokjjxvmroojft CPT-4: 22068 Unknown N0M-Pcqfbrqgoiohigk CPT-4: 94553 Unknown O4Z-Gnrvghnalhkmhvr CPT-4: 90792 Unknown O4D-Hwkgtgftlphsvuc CPT-4: 96081 Unknown P1H-Cgpwqqyqvugiwps CPT-4: 78158 Unknown Q4K-Wyfjwcprcwmcmic CPT-4: 06737 Unknown U5V-Dohidbmqnvvnflj CPT-4: 66259 Unknown N6Y-Ejjpgxofhiczybe CPT-4: 99894 Unknown W8I-Vwvqyyacfpnsvjd CPT-4: 50593 Unknown Gynecology Referral SNOMED CT: 513598451 CPT-4: R14 Unknown Reason For Visit No Reason For Visit data Plan of Care Planned Activity Notes Codes Status Date Referral: Pending Gynecology Referral Information Referral Processed Referral: Pending Pulmonolog y Referral Information Referral Processed Referral: Pending Psychiatry Referral Information Referral Initiated Referral: Pending Respirator y Services Referral Information Referral Initiated Referral: Pending Ophthalmol ogy Referral Information Referral Initiated Referral: [facility] WPtel: [address] [place] [address] [address] [address] [place] Veterinary Laboratory Diagnostician placed a call out to the patient to notify her that it has been recommended that she be seen by a urologist. Patient agreed to be seen, does not have a provider of choice and no transportation issues. Veterinary Laboratory Diagnostician faxed referral and clinical notes to [facility] in [place], [place] near the patient's home. Patient to [...] seen and prefers a provider in the [place] or [place] area. Veterinary Laboratory Diagnostician placed a call out to everyone listed in the area and the only location that was able to accept the patient's insurance was [facility] [place] [address] and spoke with Maylin. Maylin asked that the patient's referral, face sheet and visit notes be faxed to . Veterinary Laboratory Diagnostician faxed over requested documents. Patient appointment confirmation letter generated and mailed to her home address. Patient to call to schedule an appointment. Processed Referral: [facility] WPtel: [address] [place] [address] Patient notified that it has been advised that she be seen by Neurology. Patient agreed to be seen and prefers to be seen by a provider in the [place], [place] area. Patient denies any concerns with transportation, and prefers to schedule her own appointment. Veterinary Laboratory Diagnostician [facility] [...]
--- OUTSIDE RECORDS SUMMARY | 2024-01-03 23:29 | XMS_ITS | CCD ---
Author Name Leena Culver NP Address [id number] [place] [address] [place] [id number] Phone Organization [facility] Phone Care Team Providers Care Night Assistant Name Role Phone Anna Culver NP Primary Care Provider Unav ailable Unavailable Chronic Care Management Unavaila ble Summary Purpose [employer] Insurance Providers Payer name Policy type / Coverage type Covered constitution party ID Effective Begin Date Effective End Date SUKI MAYO [id number] Unknown Unknown Family history Mother Diagnosis Age [...] Unknown Disability 05/31/[address]: 578831813 Has never s moked or chewed tobacco 05/31/[address]: 331823879 Never drinks alco hol 05/31/2018 Has the patient ever used illegal drugs? Unknown Has never used illegal drugs 05/31/2018 DNR Order/ Advanced Directive Unknown Full Code 05/31/2018 Allergies, Adverse Reactions, Alerts Substance Reaction Codes Entered Date Inactivated Date Status OxyContin itch, RxNorm: 057725 01/13/2021 No Inactive Da te Active *No [...] neuropathy ICD-10: E11.42 ICD-9: 250.60 11/28/2019 Active Impetigo ICD-10: L01.00 ICD-9: 684 10/21/2023 Active Type 2 diabetes mellitus wit h hyperglycemia, without long-term current use of insulin ICD-10: E11.65 ICD-9: 250.00 08/05/2023 Active Upper respiratory infection ICD-10: J06. 9 ICD-9: 465.9 09/15/2023 Active Encounter for immunization ICD-10: Z23 ICD-9: V04.81 08/05/2023 Active Right foot pain ICD-10: M79.671 ICD-9: 729.5 08/05/2023 Active Allergic rhinitis ICD-10: J30.9 ICD-9: 477.9 [...] ICD-10: E78. 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 jail (current) use of non-steroidal anti-inflammatories (NSAID) [...] ICD-10: R51 ICD-9: 784.0 10/03/2018 Inactive Other fdc (current) dr sharma therapy ICD-10: Z79.899 ICD-9: V58.69 04/25/2019 Inactive Type 2 diabetes mellitus wit hout complications ICD-10: E11.9 ICD-9: 250.00 10/03/2018 Inactive Wheezing ICD-10: R06.2 ICD-9: 786.07 08/08/2018 Inactive Abnormal urine finding ICD-10: R82.90 ICD-9: 791.9 09/24/2020 Resolved Abrasion of toe ICD-10: S90.416A ICD-9: 917.0 02/14/2020 Resolved [place] eye ICD-10: H10.029 ICD-9: 372.03 12/29/2019 Resolved [...] Fill Instructions montelukast 10 mg tablet RxNorm: 308233 Take 1 Tablet(s) Oral every day 024 2023 Active gabapentin 300 mg capsule RxNorm: 639997 Take 1 Capsule(s) Oral three times a day 024 2023 Active hydrocortisone 2.5 % topical cream RxNorm: 309519 Apply Application Topical two times a day a thin layer to the affected area(s) No Stop Date Active amoxicillin 500 mg tablet RxNorm: 410964 Take 1 Tablet(s) Oral two times a day 024 2023 Inactive omeprazole 40 mg capsule,delayed release RxNorm: 944226 Take 1 Capsule(s) Oral HS 024 2023 Active Januvia 100 mg tablet RxNorm: 316775 Take 1 Tablet(s) Oral every day 023 2023 Active amoxicillin 250 mg capsule RxNorm: 230833 Take 1 Capsule(s) Oral three times a day 023 2022 Inactive amoxicillin 500 mg tablet RxNorm: 038630 Take 1 Tablet(s) Oral three times a day 023 2022 Inactive Ozempic 1 mg/dose (4 mg/3 mL) subcutaneous pen injector RxNorm: 8784626 INJECT 1 UNITS DOSE SUBCUTANEOUSLY ON TUESDAY OF EACH WEEK 023 2023 Active MED IS ON B/O omeprazole 40 mg capsule,delayed release RxNorm: 647150 Take 1 Capsule(s) Oral HS 023 2022 Inactive Januvia 50 mg tablet RxNorm: 036132 Take 1 Tablet(s) Oral two times a day 023 2023 Inactive famotidine 20 mg tablet RxNorm: 859671 TAKE 1 TABLET BY MOUTH EACH MORNING 023 2023 Active Januvia 25 mg tablet RxNorm: 760968 Take 1 Tablet(s) Oral every day 023 2022 Inactive Ozempic 1 mg/dose (4 mg/3 mL) subcutaneous pen injector RxNorm: 7974159 INJECT 1 UNITS DOSE SUBCUTANEOUSLY ON TUESDAY OF EACH WEEK 023 2022 Inactive cetirizine 10 mg tablet RxNorm: 3192808 TAKE (1) TABLET BY MOUTH DAILY 023 2023 Inactive amoxicillin 500 mg tablet RxNorm: 930306 Take 1 Tablet(s) Oral two times a day 023 2022 Inactive omeprazole 40 mg capsule,delayed release RxNorm: 727661 Take 1 Capsule(s) Oral at bed time 023 2022 Inactive Easy Touch Alcohol Prep Pads RxNorm: 348685 USE EACH MORNING 023 2024 Active montelukast 10 mg tablet RxNorm: 438936 Take 1 Tablet(s) Oral every day 023 2022 Inactive gabapentin 300 mg capsule RxNorm: 459813 Take 1 Capsule(s) Oral three times a day 023 2022 Inactive metformin ER 500 mg 24 hr tablet,extended release RxNorm: 2239467 Take 1 Tablet(s) Oral every day with the evening meal 023 2022 Inactive famotidine 20 mg tablet RxNorm: 678077 Take 1 Tablet(s) Oral every morning 023 2022 Inactive levothyroxine 50 mcg tablet RxNorm: 934289 Take 1 Tablet(s) Oral every day 023 2023 [facility] hydrochlorothiazide 25 mg tablet RxNorm: 899052 Take 1 Tablet(s) Oral every day 023 2023 [facility] Requested atorvastatin 20 mg tablet RxNorm: 250034 Take 1 Tablet(s) Oral every night at bedtime 023 2023 Active Macrobid 100 mg capsule RxNorm: 999403 1 Capsule(s) Oral every 12 hours with food 023 2022 Inactive omeprazole 40 mg capsule,delayed release RxNorm: 20021111 Take 1 Capsule(s) Oral every night at bedtime 023 2022 Inactive trazodone 50 mg tablet RxNorm: 705633 Administer 1 Tablet(s) Oral every night at bedtime 023 No Stop Date Active cholecalciferol (vitamin D3) 50 mcg (2,000 unit) tablet RxNorm: 752279 Take 1 Tablet(s) Oral every day 023 2023 Active Ozempic 1 mg/dose (4 mg/3 mL) subcutaneous pen injector RxNorm: 4954800 USE 1 UNIT DOSE SUBCUTANEOUSLY ON TUE OF EACH WEEK 023 2022 Inactive lisinopril 2.5 mg tablet RxNorm: 213704 Take 1 Tablet(s) Oral every day 023 2022 Inactive Msg From [facility]: Dr. Zapata Requested Ozempic 1 mg/dose (4 mg/3 mL) subcutaneous pen injector RxNorm: 5207222 USE 1 UNIT DOSE SUBCUTANEOUSLY ON TUE OF EACH WEEK 023 2022 Inactive omeprazole 40 mg capsule,delayed release RxNorm: 20021111 Take 1 Capsule(s) Oral every night at bedtime 023 2022 Inactive gabapentin 300 mg capsule RxNorm: 950185 Take 1 Capsule(s) Oral three times a day 023 2022 Inactive montelukast 10 mg tablet RxNorm: 764072 Take 1 Tablet(s) Oral every day 023 2022 Inactive omeprazole 20 mg capsule,delayed release RxNorm: 611621 Take 1 Capsule(s) Oral every evening 022 2022 Inactive Alcohol Prep Pads RxNorm: 734493 USE EACH MORNING 022 2021 Inactive E11.42 clotrimazole 1 % topical cream RxNorm: 724323 Apply 1 Application Topical two times a day as needed apply to affected area(s) twice daily until healed 022 2021 Inactive Victoza 2-Sebastián 0.6 mg/0.1 mL (18 mg/3 mL) subcutaneous pen injector RxNorm: 320770 Inject 0.6-1.8 Milligram(s) Subcutaneous once a week Inject 0.6mg/0.1ml week one, 1.2mg/0.2ml week two, 1.8/0.3ml weekly thereafter 2021 Inactive ibuprofen 800 mg tablet RxNorm: 715497 Take 1 Tablet(s) Oral Q8H as needed for pain take with food No Stop Date Active Ozempic 1 mg/dose (4 mg/3 mL) subcutaneous pen injector RxNorm: 3810550 Take 1 Unit Dose Subcutaneous QWeek Tuesday2021 Inactive lisinopril 2.5 mg tablet RxNorm: 076887 Take 1 Tablet(s) Oral every day 2021 Inactive lisinopril 2.5 mg tablet RxNorm: 347417 Take 1 Tablet(s) Oral every day 2022 Inactive hydrochlorothiazide 25 mg tablet RxNorm: 054832 Take 1 Tablet(s) Oral every day 2021 Inactive Ozempic 1 mg/dose (4 mg/3 mL) subcutaneous pen injector RxNorm: 3565338 Take 1 Unit Dose Subcutaneous QWeek 2021 Inactive famotidine 20 mg tablet RxNorm: 573672 Take 1 Tablet(s) Oral every morning 2021 Inactive levothyroxine 50 mcg tablet RxNorm: 160202 Take 1 Tablet(s) Oral every day 2021 Inactive atorvastatin 20 mg tablet RxNorm: 247331 Take 1 Tablet(s) Oral every night at bedtime 2021 Inactive Cleocin T 1 % lotion RxNorm: 156996 Take 2 Gram(s) Topical every day 022 2021 Inactive Cleocin T 1 % lotion RxNorm: 597177 Take 2 Gram(s) Topical every day 2021 Inactive Ozempic 1 mg/dose (4 mg/3 mL) subcutaneous pen injector RxNorm: 8846224 Take 1 Unit Dose Subcutaneous QWeek 022 2021 Inactive Ozempic 0.25 mg or 0.5 mg (2 mg/1.5 mL) subcutaneous pen injector RxNorm: 9251967 INJECT 0.5 MGS SUBCUTANEOUSLY EVERY WEEK 2021 Inactive omeprazole 20 mg capsule,delayed release RxNorm: 536666 Take 1 Capsule(s) Oral every evening 022 2021 Inactive levothyroxine 50 mcg tablet RxNorm: 369257 Take 1 Tablet(s) Oral every day 022 2021 Inactive atorvastatin 20 mg tablet RxNorm: 481196 Take 1 Tablet(s) Oral every night at bedtime 2021 Inactive This refill negates all other refills of this medication lisinopril 2.5 mg tablet RxNorm: 693258 Take 1 Tablet(s) Oral every day 2021 Inactive gabapentin 300 mg capsule RxNorm: 276612 Take 1 Capsule(s) Oral three times a day 022 2021 Inactive montelukast 10 mg tablet RxNorm: 743651 Take 1 Tablet(s) Oral every day 2021 Inactive Myrbetriq 50 mg tablet,extended release RxNorm: 5146197 1 Tablet(s) Oral every day No Stop Date Active cholecalciferol (vitamin D3) 50 mcg (2,000 unit) tablet RxNorm: 382726 Take 1 Tablet(s) Oral every day 022 2022 Inactive Ozempic 0.25 mg or 0.5 mg (2 mg/1.5 mL) subcutaneous pen injector RxNorm: 7680045 inject 0.5 milligrams subcutaneously every week 022 2021 Inactive Ozempic 0.25 mg or 0.5 mg (2 mg/1.5 mL) subcutaneous pen injector RxNorm: 2382366 Take 0.5 Capsule(s) Injection once a week 2021 Inactive omeprazole 20 mg capsule,delayed release RxNorm: 865731 Take 1 Capsule(s) Oral every evening 2020 Inactive Ozempic 0.25 mg or 0.5 mg (2 mg/1.5 mL) subcutaneous pen injector RxNorm: 1908620 Take 0.25 Milligram(s) Subcutaneous once a week 2021 Inactive Easy Touch Alcohol Prep Pads RxNorm: 719927 USE DIRECTED EACH MORNING 2021 Inactive Probiotic 10 billion cell capsule RxNorm: 1370649 Take 1 Capsule(s) Oral every day 2021 Inactive levothyroxine 50 mcg tablet RxNorm: 332484 Take 1 Tablet(s) Oral every day 2020 Inactive Acid Parachute Folder (famotidine) 20 mg tablet RxNorm: 330208 Take 1 Tablet(s) Oral every morning 2020 Inactive Heartburn Relief (famotidine) 10 mg tablet RxNorm: 843902 Take 1 Tablet(s) Oral QAM 2020 Inactive levothyroxine 50 mcg tablet RxNorm: 898954 Take 1 Tablet(s) Oral QD 2020 Inactive Singulair 10 mg tablet RxNorm: 336980 TAKE (1) TABLET BY MOUTH DAILY 2020 Inactive metformin 1,000 mg tablet RxNorm: 759885 1 Tablet(s) Oral two times a day 2021 Inactive lisinopril 2.5 mg tablet RxNorm: 985328 Take 1 Tablet(s) Oral every day 2020 Inactive hydrochlorothiazide 25 mg tablet RxNorm: 094597 Take 1 Tablet(s) Oral every day 021 2020 Inactive ondansetron 4 mg disintegrating tablet RxNorm: 567496 1 Tablet(s) Oral two times a day 021 2020 Inactive Sudafed 12 Hour 120 mg tablet,extended release RxNorm: 6310503 TAKE 1 TABLET BY MOUTH EVERY 12 HOURS NEEDED 021 2021 Inactive Heartburn Relief (famotidine) 10 mg tablet RxNorm: 706803 Take 1 Tablet(s) Oral every morning 021 2020 Inactive omeprazole 20 mg capsule,delayed release RxNorm: 763040 1 Capsule(s) Oral every evening 021 2020 Inactive sertraline 100 mg tablet RxNorm: 229859 2 Tablet(s) Oral every day 021 2020 Inactive levothyroxine 50 mcg tablet RxNorm: 669590 TAKE (1) TABLET BY MOUTH DAILY 2020 Inactive metformin 500 mg tablet RxNorm: 138778 1 Tablet(s) Oral two times a day take with 500mg to equal 1000mg 021 2020 Inactive gabapentin 300 mg capsule RxNorm: 669292 TAKE 1 CAPSULE BY MOUTH THREE TIMES A DAY 021 2020 Inactive lisinopril 2.5 mg tablet RxNorm: 385276 TAKE 1 TABLET BY MOUTH DAILY 021 2020 Inactive gabapentin 300 mg capsule RxNorm: 632720 TAKE 1 CAPSULE BY MOUTH THREE TIMES A DAY 021 2020 Inactive Singulair 10 mg tablet RxNorm: 777341 TAKE (1) TABLET BY MOUTH DAILY 021 2020 Inactive metformin 1,000 mg tablet RxNorm: 431676 1 Tablet(s) Oral two times a day 021 2020 Inactive atorvastatin 40 mg tablet RxNorm: 149992 1 Tablet(s) Oral every day 021 2020 Inactive omeprazole 20 mg capsule,delayed release RxNorm: 021282 1 Capsule(s) Oral every evening 021 2020 Inactive famotidine 10 mg tablet RxNorm: 303210 1 Tablet(s) Oral every morning 2020 Inactive Alcohol Prep Pads RxNorm: 434433 USE EACH MORNING 021 2020 Inactive omeprazole 20 mg capsule,delayed release RxNorm: 790033 1 Capsule(s) Oral two times a day 2021 Inactive omeprazole 20 mg capsule,delayed release RxNorm: 658207 TAKE 1 CAPSULE BY MOUTH EVERY DAY 2021 Inactive Macrobid 100 mg capsule RxNorm: 060840 1 Capsule(s) Oral every 12 hours with food 2020 Inactive omeprazole 20 mg capsule,delayed release RxNorm: 368960 1 Capsule(s) Oral two times a day 2021 Inactive metformin 1,000 mg tablet RxNorm: 365238 1 Tablet(s) Oral two times a day 2020 Inactive start on September 11, 2020 metformin 500 mg tablet RxNorm: 705024 1 Tablet(s) Oral two times a day take with 500mg to equal 1000mg 2019 Inactive gabapentin 300 mg capsule RxNorm: 723012 TAKE 1 CAPSULE BY MOUTH THREE TIMES DAILY 2020 Inactive cetirizine 10 mg tablet RxNorm: 7244822 TAKE (1) TABLET BY MOUTH DAILY 2020 Inactive metformin 500 mg tablet RxNorm: 394678 1 Tablet(s) Oral two times a day 2019 Inactive loperamide 2 mg tablet RxNorm: 105205 1 Tablet(s) Oral as needed take one tablet after each loose stool, maximum of 8 tablets in 24 hours 2021 Inactive Sudafed 12 Hour 120 mg tablet,extended release RxNorm: 9319915 TAKE 1 TABLET BY MOUTH EVERY 12 HOURS NEEDED 020 2019 Inactive hydrochlorothiazide 25 mg tablet RxNorm: 462898 TAKE (1) TABLET BY MOUTH EVERY DAY 2019 Inactive omeprazole 20 mg capsule,delayed release RxNorm: 545694 TAKE 1 CAPSULE BY MOUTH EVERY DAY 020 2020 Inactive metformin 500 mg tablet RxNorm: 417234 1 Tablet(s) Oral every day 020 2019 Inactive True Metrix Glucose Test Strip RxNorm: 1 Test Strips Miscellaneous two times a day as needed No Stop Date Active metformin 500 mg tablet RxNorm: 654843 1 Tablet(s) Oral every day 020 2019 Inactive diclofenac sodium 75 mg tablet,delayed release RxNorm: 461477 1 Tablet(s) PO BID 2021 Inactive This refill negates all other refills of this medication Sudafed 12 Hour 120 mg tablet,extended release RxNorm: 3149335 TAKE 1 TABLET BY MOUTH EVERY 12 HOURS NEEDED 020 2019 Inactive True Metrix Glucose Test Strip RxNorm: 1 Test Strips Miscellaneous every morning 020 2019 Inactive 100/container True Metrix Glucose Test Strip RxNorm: 1 Test Strips Miscellaneous QAM 020 2019 Inactive 100/container loperamide 2 mg tablet RxNorm: 301421 1 Tablet(s) Oral as needed take one tablet after each loose stool, maximum of 8 tablets in 24 hours 020 2019 Inactive cetirizine 10 mg tablet RxNorm: 9708788 1 Tablet(s) PO daily 2019 Inactive loperamide 2 mg tablet RxNorm: 030187 1 Tablet(s) Oral as needed take one tablet after each loose stool, maximum of 8 tablets in 24 hours 020 2019 Inactive quetiapine 100 mg tablet RxNorm: 096094 1 Tablet(s) Oral every night at bedtime 020 2019 Inactive levothyroxine 50 mcg tablet RxNorm: 542126 1 Tablet(s) PO daily 020 2020 Inactive gabapentin 300 mg capsule RxNorm: 872862 1 Capsule(s) PO TID 2019 Inactive levothyroxine 50 mcg tablet RxNorm: 334333 1 Tablet(s) PO daily 020 2019 Inactive lisinopril 2.5 mg tablet RxNorm: 900560 1 Tablet(s) PO daily 020 2020 Inactive gabapentin 300 mg capsule RxNorm: 649783 1 Capsule(s) PO TID 2019 Inactive cetirizine 10 mg tablet RxNorm: 4494673 1 Tablet(s) PO daily 2019 Inactive Singulair 10 mg tablet RxNorm: 691175 1 Tablet(s) PO daily 2020 Inactive gentamicin 0.3 % eye drops RxNorm: 131989 1 Drop(s) ophthalmic (eye) four times a day 2019 Inactive gentamicin 0.3 % eye drops RxNorm: 325455 1 Drop(s) ophthalmic (eye) four times a day 2019 Inactive gentamicin 0.3 % eye drops RxNorm: 925667 1 Drop(s) ophthalmic (eye) four times a day 2019 Inactive hydrochlorothiazide 25 mg tablet RxNorm: 559867 1 Tablet(s) Oral every day 2019 Inactive Sudafed 12 Hour 120 mg tablet,extended release RxNorm: 4755173 TAKE (1) TABLET BY MOUTH EVERY 12 HOURS NEEDED 2019 Inactive loperamide 2 mg tablet RxNorm: 591367 1 Tablet(s) Oral as needed take one tablet after each loose stool, maximum of 8 tablets in 24 hours 2019 Inactive loperamide 2 mg tablet RxNorm: 210997 1 Tablet(s) Oral as needed take one tablet after each loose stool, maximum of 8 tablets in 24 hours 020 2019 Inactive atorvastatin 40 mg tablet RxNorm: 774578 1 Tablet(s) Oral every day 02/27/2 020 03/04/ 2021 Inactive quetiapine 100 mg tablet RxNorm: 968373 1 Tablet(s) Oral every night at bedtime 2019 Inactive sertraline 100 mg tablet RxNorm: 284884 1 Tablet(s) Oral 020 2019 Inactive omeprazole 20 mg capsule,delayed release RxNorm: 951102 1 Capsule(s) Oral every day 020 2019 Inactive amoxicillin 250 mg capsule RxNorm: 927029 1 Capsule(s) Oral three times a day 020 2019 Inactive multivitamin with iron-mineral tablet RxNorm: 1 Tablet(s) Oral every day 020 2021 Inactive cetirizine 10 mg tablet RxNorm: 8988330 1 Tablet(s) PO daily 2019 Inactive This refill negates all other refills of this medication. Please do not auto refill Singulair 10 mg tablet RxNorm: 192322 1 Tablet(s) PO daily 2019 Inactive This refill negates all other refills of this medication gabapentin 300 mg capsule RxNorm: 976371 1 Capsule(s) PO TID 2019 Inactive lisinopril 2.5 mg tablet RxNorm: 359021 1 Tablet(s) PO daily 2019 Inactive levothyroxine 50 mcg tablet RxNorm: 529655 1 Tablet(s) PO daily 2019 Inactive This refill negates all other refills of this medication hydrochlorothiazide 25 mg tablet RxNorm: 966704 1 Tablet(s) Oral every day 020 2019 Inactive fenugreek seed extract 500 mg capsule RxNorm: 1 Capsule(s) Oral three times a day 020 2021 Inactive Alcohol Prep Pads RxNorm: 571054 1 Patch TOP QAM 020 2020 Inactive loperamide 2 mg tablet RxNorm: 424776 1 Tablet(s) Oral as needed take one [...] 2019 Inactive hydrochlorothiazide 25 mg tablet RxNorm: 985997 1 Tablet(s) Oral every day 2019 Inactive Sudafed 12 Hour 120 mg tablet,extended release RxNorm: 1627213 1 Tablet(s) Oral every 12 hours as needed 2018 Inactive omeprazole 20 mg capsule,delayed release RxNorm: 006978 1 Capsule(s) Oral every day 2019 Inactive Sudafed 12 Hour 120 mg tablet,extended release RxNorm: 8947551 1 Tablet(s) Oral every 12 hours as needed 2018 Inactive pantoprazole 40 mg tablet,delayed release RxNorm: 725017 1 Tablet(s) Oral every day 2018 Inactive discontinue any other H2Blkr. and PPI albuterol sulfate 2.5 mg/3 mL (0.083 %) solution for nebulization RxNorm: 641217 1 Vial Inhalation every four hours as needed as needed for dyspnea 2019 Inactive 60/box. This refill negates all other refills of this medication. Please do not fill early. Please do not auto refill. Symbicort 160 mcg-4.5 mcg/actuation HFA aerosol inhaler RxNorm: 0224184 2 Puff(s) INH BID No Stop Date Active Alcohol Prep Pads RxNorm: 016452 1 Patch TOP QAM 2019 Inactive Ventolin HFA 90 mcg/actuation aerosol inhaler RxNorm: 897617 2 Puff(s) INH QID 019 2019 Inactive Please do not fill early. Please do not auto refill. This refill negates all other refills of this medication True Metrix Glucose Test Strip RxNorm: 1 Test Strips Miscellaneous QAM 019 2019 Inactive 100/container atorvastatin 40 mg tablet RxNorm: 973736 1 Tablet(s) Oral every day 019 2019 Inactive buspirone 7.5 mg tablet RxNorm: 515276 1 Tablet(s) PO BID 019 2020 Inactive This refill negates all other refills of this medication hydrochlorothiazide 12.5 mg tablet RxNorm: 420135 1 Tablet(s) PO QAM 019 2019 Inactive levmetamfetamine 50 mg nasal inhaler RxNorm: 1 Unit(s) NASAL Q3-4H Do not use more than every 3 hours or 8 times/24hours 019 2021 Inactive Please do not auto refill. This refill negates all other refills of this medication Ventolin HFA 90 mcg/actuation aerosol inhaler RxNorm: 041588 2 Puff(s) INH QID 019 2018 Inactive Please do not fill early. Please do not auto refill. This refill negates all other refills of this medication Singulair 10 mg tablet RxNorm: 795793 1 Tablet(s) PO daily 019 2019 Inactive This refill negates all other refills of this medication cetirizine 10 mg tablet RxNorm: 2680260 1 Tablet(s) PO daily 019 2019 Inactive This refill negates all other refills of this medication. Please do not auto refill levothyroxine 50 mcg tablet RxNorm: 572393 1 Tablet(s) PO daily 019 2019 Inactive This refill negates all other refills of this medication diclofenac sodium 75 mg tablet,delayed release RxNorm: 446649 1 Tablet(s) PO BID 019 2019 Inactive This refill negates all other refills of this medication ranitidine 150 mg tablet RxNorm: 936366 1 Tablet(s) PO BID 019 2018 Inactive This refill negates all other refills of this medication Calcium 600-D3 Plus (mag-zinc) 600 mg calcium-800 unit-50 mg tablet RxNorm: 1 Tablet(s) PO daily take an additonal tablet for itching. 019 2018 Inactive This refill negates all other refills of this medication albuterol sulfate 2.5 mg/3 mL (0.083 %) solution for nebulization RxNorm: 413696 1 Vial INH QID 2018 Inactive 60/box. This refill negates all other refills of this medication. Please do not fill early. Please do not auto refill. lisinopril 2.5 mg tablet RxNorm: 965102 1 Tablet(s) PO daily 019 2019 Inactive gabapentin 300 mg capsule RxNorm: 836033 1 Capsule(s) PO TID 019 2019 Inactive atorvastatin 20 mg tablet RxNorm: 711772 1 Tablet(s) PO QHS 2018 Inactive This refill negates all other refills of this medication TRUEplus Lancets 30 gauge RxNorm: 1 Lancets Miscellaneous QAM 019 2018 Inactive 100/box gabapentin 300 mg capsule RxNorm: 905386 1 Capsule(s) PO TID 019 2018 Inactive Flintstones Complete (iron) 18 mg iron chewable tablet RxNorm: 1 Tablet(s) PO daily 019 2021 Inactive This refill negates all other refills of this medication gabapentin 300 mg capsule RxNorm: 952998 1 Capsule(s) PO TID as needed 019 2018 Inactive True Metrix Glucose Test Strip RxNorm: 1 Test Strips Miscellaneous QAM 019 2018 Inactive 100/container Alcohol Prep Pads RxNorm: 902540 1 Patch TOP QAM 019 2018 Inactive TRUEplus Lancets 30 gauge RxNorm: 1 Lancets Miscellaneous QAM 019 2018 Inactive 100/box lisinopril 2.5 mg tablet RxNorm: 418943 1 Tablet(s) PO daily 019 2018 Inactive ranitidine 150 mg tablet RxNorm: 568882 1 Tablet(s) PO BID 019 2018 Inactive This refill negates all other refills of this medication albuterol sulfate 2.5 mg/3 mL (0.083 %) solution for nebulization RxNorm: 342030 1 Vial INH QID 019 2018 Inactive [...] this medication gabapentin 300 mg capsule RxNorm: 956000 1 Capsule(s) PO TID as needed 019 2018 Inactive atorvastatin 20 mg tablet RxNorm: 623973 1 Tablet(s) PO QHS 019 2018 Inactive This refill negates all other refills of this medication trazodone 50 mg tablet RxNorm: 552992 1 Tablet(s) PO QHS 019 2018 Inactive This refill negates all other refills of this medication Ventolin HFA 90 mcg/actuation aerosol inhaler RxNorm: 463974 2 Puff(s) INH QID 019 2018 Inactive Please do not fill early. Please do not auto refill. This refill negates all other refills of this medication Calcium 600-D3 Plus 600 mg calcium-800 unit-50 mg tablet RxNorm: 1 Tablet(s) PO daily take an additonal tablet for itching. 019 2018 Inactive This refill negates all other refills of this medication Singulair 10 mg tablet RxNorm: 210736 1 Tablet(s) PO daily 019 2018 Inactive This refill negates all other refills of this medication buspirone 7.5 mg tablet RxNorm: 724646 1 Tablet(s) PO BID 019 2018 Inactive This refill negates all other refills of this medication diclofenac sodium 75 mg tablet,delayed release RxNorm: 176872 1 Tablet(s) PO BID 019 2018 Inactive This refill negates all other refills of this medication hydrochlorothiazide 12.5 mg tablet RxNorm: 234164 1 Tablet(s) PO QAM 019 2018 Inactive metoprolol succinate ER 50 mg tablet,extended release 24 hr RxNorm: 326495 1 Tablet(s) PO daily 019 2018 Inactive This refill negates all other refills of this medication levothyroxine 50 mcg tablet RxNorm: 848103 1 Tablet(s) PO daily 019 2018 Inactive This refill negates all other refills of this medication cetirizine 10 mg tablet RxNorm: 3039760 1 Tablet(s) PO daily 019 2018 Inactive This refill negates all other refills of this medication. Please do not auto refill Flintstones Complete (iron) 18 mg iron chewable tablet RxNorm: 1 Tablet(s) PO daily 019 2018 Inactive This refill negates all other refills of this medication buspirone 7.5 mg tablet RxNorm: 238761 1 Tablet(s) PO BID 019 2018 Inactive cetirizine 10 mg tablet RxNorm: 1742872 1 Tablet(s) PO daily 018 2018 Inactive Guaiasorb DM 10 mg-100 mg/5 mL oral liquid RxNorm: 619015 10 Milliliter(s) PO As needed every 4 hr 2018 Inactive Vicks Vaporub 4.7 %-1.2 %-2.6 % topical ointment RxNorm: 0966758 1 Application TOP TID 2018 Inactive levmetamfetamine 50 mg nasal inhaler RxNorm: 1 Unit(s) NASAL Q3-4H 2017 Inactive sertraline 50 mg tablet RxNorm: 375365 1 Tablet(s) PO daily 2018 Inactive Please note dose trazodone 50 mg tablet RxNorm: 500629 1 Tablet(s) PO QHS 2018 Inactive sertraline 50 mg tablet RxNorm: 557077 1 Tablet(s) PO daily 2017 Inactive amoxicillin 500 mg tablet RxNorm: 322186 1 Tablet(s) PO Q12H 2017 Inactive albuterol sulfate 2.5 mg/3 mL (0.083 %) solution for nebulization RxNorm: 178249 1 Vial INH QID 2018 Inactive 60/box. Please do not fill early. Please do not auto refill. Prozac 10 mg capsule RxNorm: 438029 1 Capsule(s) PO daily 2017 Inactive buspirone 7.5 mg tablet RxNorm: 291880 1 Tablet(s) PO BID 2018 Inactive gabapentin 300 mg capsule RxNorm: 516407 1 Capsule(s) PO TID as needed 2018 Inactive hydrochlorothiazide 12.5 mg tablet RxNorm: 512361 1 Tablet(s) PO QAM 2018 Inactive ranitidine 150 mg tablet RxNorm: 083449 1 Tablet(s) PO BID 2018 Inactive Macrobid 100 mg capsule RxNorm: 639367 1 Capsule(s) PO Q12H 2017 Inactive Singulair 10 mg tablet RxNorm: 295453 1 Tablet(s) PO daily 018 2018 Inactive Ventolin HFA 90 mcg/actuation aerosol inhaler RxNorm: 4241388 2 Puff(s) INH QID 018 2018 Inactive Singulair 10 mg tablet RxNorm: 794900 1 Tablet(s) PO daily 018 2017 Inactive buspirone 7.5 mg tablet RxNorm: 370839 1 Tablet(s) PO BID 018 2017 Inactive Prozac 10 mg capsule RxNorm: 639720 1 Capsule(s) PO daily 018 2017 Inactive diclofenac sodium 75 mg tablet,delayed release RxNorm: 338075 1 Tablet(s) PO BID 018 2017 Inactive lisinopril 2.5 mg tablet RxNorm: 696937 1 Tablet(s) PO daily 018 2017 Inactive Neilmed Pediatric Sinus Rinse Refill packet RxNorm: 1 Unit Dose NASAL PRN 018 2021 Inactive metoprolol succinate ER 50 mg tablet,extended release 24 hr RxNorm: 734499 1 Tablet(s) PO daily 018 2017 Inactive levothyroxine 50 mcg tablet RxNorm: 334038 1 Tablet(s) PO daily 018 2017 Inactive TRUEplus Lancets 30 gauge RxNorm: 1 Lancets Miscellaneous QAM 018 2017 Inactive 100/box Ventolin HFA 90 mcg/actuation aerosol inhaler RxNorm: 590880 2 Puff(s) INH QID 018 2017 Inactive Aleve 220 mg capsule RxNorm: 6511940 1 Capsule(s) PO BID 018 2018 Inactive ranitidine 150 mg tablet RxNorm: 432431 1 Tablet(s) PO BID 018 2017 Inactive gabapentin 300 mg capsule RxNorm: 228240 1 Capsule(s) PO TID as needed 018 2017 Inactive atorvastatin 20 mg tablet RxNorm: 643890 1 Tablet(s) PO QHS 018 2017 Inactive True Metrix Glucose Test Strip RxNorm: 1 Test Strips Miscellaneous QA 018 2017 Inactive 50/container Calcium 600-D3 Plus 600 mg calcium-800 unit-50 mg tablet RxNorm: 1 Tablet(s) PO daily take an additonal tablet for itching. 018 2017 Inactive hydrochlorothiazide 12.5 mg tablet RxNorm: 145188 1 Tablet(s) PO QAM 018 2017 Inactive Flintstones Complete (iron) 18 mg iron chewable tablet RxNorm: 1 Tablet(s) PO daily 018 2017 Inactive True Metrix Glucose Meter RxNorm: miscellaneous 019 2018 Inactive sertraline 50 mg tablet RxNorm: 095183 1 Tablet(s) PO daily 020 2019 Inactive loperamide 2 mg tablet RxNorm: 115311 oral 019 2018 Inactive d-mannose oral powder RxNorm: PO 018 2021 Inactive Symbicort 160 mcg-4.5 mcg/actuation HFA aerosol inhaler RxNorm: 4016779 2 Puff(s) INH BID 019 2018 Inactive [...] for depression- NO PLAN NEEDED CPT-4: DPHQUnknown 11/09/2023 Patient Health Questionnaire CPT-4: DPHQ Electrocardiogram CPT-4: 96112 06/24/2023 Urinalysis, dip stick CPT-4: 93286 05/04/2023 Almont Fany Assessment CPT-4: DSWA 01/02 Fall Risk Assessment CPT-4: DFRA 01/27/2023 Hypertension CPT-4: HTN 01/27/2023 Patient Health Questionnaire CPT-4: DPHQ Pain Screening CPT-4: PAS 2022 Tobacco Assessment/Screening CPT-4: TCA Hypertension CPT-4: HTN 08/17/2022 Almont Fany Assessment CPT-4: DSWA 04/02 Patient Health [...] CPT-4: VACP Fall Risk Assessment SNOMED CT: 90049742 4 CPT-4: DFRA 01/13/2021 Almont Fany Assessment CPT-4: DSWA 12/01 Urinalysis, dip stick CPT-4: 78544 09/24/2020 Patient Health Questionnaire CPT-4: DPHQ Electrocardiogram CPT-4: 23207 05/14/2020 Tobacco Assessment/Screening CPT-4: TCA Fall Risk Assessment SNOMED CT: 43516949 4 CPT-4: DFRA 01/01/2020 Functional Assessment CPT-4: DFA 01/01/2020 Almont Fany Assessment CPT-4: DSWA 11/04 Patient Health Questionnaire CPT-4: DPHQ [place] Fany Assessment CPT-4: DSWA 10/03 Hypertension CPT-4: HTN 10/17/2019 Fall Risk Assessment SNOMED CT: 22504498 4 CPT-4: DFRA 09/19/2019 Functional Assessment CPT-4: DFA 09/19/2019 Urinalysis, dip stick CPT-4: 08346 06/21/2019 Tobacco Assessment/Screening CPT-4: TCA Patient Health Questionnaire CPT-4: DPHQ AHA/REBECCA Classification Assessment CPT-4: DAHA 04/25/2019 Controlled Substance Report CPT-4: CTRSU 04/03 Urinalysis, dip stick CPT-4: 73780 03/28/2019 Urinalysis, dip stick CPT-4: 54187 03/28/2019 X2C-Ulqdaxomwrhfwsn CPT-4: 58998 Unknown N2F-Xuitnmypttdluaq CPT-4: 25541 Unknown S3D-Zmleosbeuvxpgsh CPT-4: 36774 Unknown S1T-Bucjidvgcqpjozc CPT-4: 56978 Unknown N2F-Qxikhzlhgcbgoux CPT-4: 66390 Unknown K3X-Qxoywylauuyvyfe CPT-4: 64873 Unknown I7L-Phlyakvrkdbfcbv CPT-4: 26591 Unknown W8V-Hlleuiqijrjpocm CPT-4: 02360 Unknown X1N-Ggtfpkalvgcfmjj CPT-4: 57360 Unknown D3W-Borydubomyxcpjk CPT-4: 64889 Unknown R6B-Kyqageslbfdqchb CPT-4: 22654 Unknown J5U-Qfbajvmepldovli CPT-4: 37187 Unknown Gynecology Referral SNOMED CT: 807764432 CPT-4: R14 Unknown Q1P-Zpedinkxrdfures CPT-4: 95682 Unknown Vital Signs Date Vital 11/09/2023 Blood Pressure 1: 110/84 Code: 8480-6 BMI: 53.3 Code: 23193-8 Heart Rate 1: 71 bpm Height: 4'11 Code: 8302-2 Respiratory Rate: 16 bpm SpO2: 99% Temperature: 36.3 (C) / 97.3 (F) Weight: 263 lbs 12 oz Code: 86056-0 Reason For Visit Reason For Visit Effective Dates Notes established patient visit 11/09/2023 Interim health update 11/09/2023 diabetes mellitus 11/09/2023 HTN 11/09/2023 Encounters Encounter Performer Location Location Address Codes Magdi e ([id number]) (EST PT) DETAILED TELEHEALTH VISIT Diagnosis: Type 2 diabetes mellitus with peripheral neuropathy[ICD10: E11.42] Diagnosis: Hypertensive heart disease without heart failure[ICD10: I11.9] Diagnosis: Major depression, recurrent[ICD10: F33.9] Diagnosis: Adult BMI 50.0-59.9 kg/sq m[ICD10: Z68.43] [facility] [address] [place] [address] CPT-4: 91799 11/09/2023 Plan of Care Planned Activity Notes [...] for diabetic education to address further continue ozempic and januvia, intolerance to metformin I11.9-402.90 Hypertensive heart disease without heart failure BP stable with chago and diuretic, will continue to monitor F33.9-296.30 Major depression, recurrent good days/bad days, continue formal MH support, discussed self care Z68.43-V85.43 Adult BMI 50.0-59.9 kg/sq m Note weight gain this visit, discussed impact of weight on managing DM2, patient remains motivated to lose weight 11/09/2023 Patient Education: Diabetes Complete d 11/09/2023 Patient Education: Patient Medication Summary Completed 11/09/2023 Patient Education: Hypertension Completed 11/09/2023 Patient Education: Obesity Completed 11/09/2023 Appointment: Anna Culver WPtel: [id number] [place] [address] ETV 10/21/2023 Appointment: Anna Culver WPtel: [address] [place] [address] E410 09/20/2023 Appointment: Anna Culver WPtel: [address] [place] [address] E410 08/05/2023 Appointment: Anna Culver WPtel: [address] [place] [address] E410 06/24/2023 Appointment: Anna Culver WPtel: [address] [place] [address] E410 05/04/2023 Appointment: Anna Culvre WPtel: [address] [place] [address] E410 01/27/2023 Appointment: Anna Culver WPtel: [address] [place] [address] E410 11/23/2022 Appointment: Anna Culver WPtel: [address] [place] [address] E410 2022 Appointment: Anna Culver WPtel: [address] [place] [address] E410 08/17/2022 Appointment: Anna Culver WPtel: [address] [place] [address] E410 06/23/2022 Appointment: Chivo Bishop WPtel: [address] [place] [address] E410 04/19/2022 Appointment: Chivo Bishop WPtel: [address] [place] [address] E410 02/11/2022 Appointment: Mikey Nair WPtel: [address] [facility] 202b [id number] [place] E410 12/03/2021 Appointment: Chivo Bishop WPtel: [address] [place] [address] E410 11/02/2021 Appointment: Chivo Bishop WPtel: [address] [place] [address] E410 10/07/2021 Appointment: Chivo Bishop WPtel: [address] [place] [address] ETV 09/10/2021 Appointment: Chivo Bishop WPtel: [address] [place] [address] ETV 08/13/2021 Appointment: Chivo Bishop WPtel: [address] [place] [address] ETV 07/06/2021 Appointment: Chivo Bishop WPtel: [address] [place] [address] PHTV 06/10/2021 Appointment: Anna Culver WPtel: [address] [place] [address] ETV 06/02/2021 Appointment: Chivo Bishop WPtel: [address] [place] [address] ETV 05/20/2021 Appointment: Anna Culver WPtel: [address] [place] [address] ETV 04/28/2021 Appointment: Chivo Bishop WPtel: [address] [place] [address] ETV 04/15/2021 Appointment: Anna Culver WPtel: [address] [place] [address] E410 04/01/2021 Appointment: Anna Culver WPtel: [address] [place] [address] ETV 03/24/2021 Appointment: Anna Culver WPtel: [address] [place] [address] ETV 03/13/2021 Appointment: Anna Culver WPtel: [address] [place] [address] E410 02/11/2021 Appointment: Chivo Bishop WPtel: [address] [place] [address] E410 01/29/2021 Appointment: Anna Culver WPtel: [address] [place] [address] ETV 01/13/2021 Appointment: Anna Culver WPtel: [address] [place] [address] E410 12/17/2020 Appointment: Chivo Bishop WPtel: [address] [place] [address] ETV 11/28/2020 Appointment: Anna Culver WPtel: [address] [place] [address] ETV 11/24/2020 Appointment: Anna Culver WPtel: [address] [place] [address] E410 10/29/2020 Appointment: Anna Culver WPtel: [address] [place] [address] [place] E410 09/24/2020 Appointment: Anna Culver WPtel: [address] [place] [address] ETV 08/26/2020 Appointment: Anna Culver WPtel: [address] [place] [address] ETV 08/19/2020 Appointment: Anna Culver WPtel: [phone] ETV 07/22/2020 Appointment: Anna Culver WPtel: [address] [place] [address] ETV 07/08/2020 Appointment: Gianna Birmingham: [address] [facility] 100 [id number] [place] ECHO 07/02/2020 Appointment: Anna Culver WPtel: [address] [place] [address] E452 06/11/2020 Appointment: Anna Culver WPtel: [address] [place] [address] E452 05/14/2020 Appointment: Anna Culver WPtel: [address] [place] [address] E452 04/17/2020 Appointment: Anna Culver WPtel: [address] [place] [address] E452 03/21/2020 Appointment: Anna Culver WPtel: [address] [place] [address] E452 02/14/2020 Appointment: Anna Culver WPtel: [address] [place] [address] E452 01/24/2020 Appointment: Anna Culver WPtel: [address] [place] [address] E452 01/01/2020 Appointment: Anan Culver WPtel: [address] [place] [address] [place] E452 11/28/2019 Appointment: Anna Culver WPtel: [address] [place] [address] E452 10/17/2019 Appointment: Anna Culver WPtel: [address] [place], [place] [id number] E452 09/19/2019 Appointment: Sudha Hernadez WPtel: [address] [facility] [id number] E452 07/04/2019 Appointment: Sudha Hernadez WPtel: [address] [place] [address] [id number] E452 06/21/2019 Appointment: Charlene Oropeza WPtel: [address] [place] [address] [id number] E452 05/24/2019 Appointment: Mallory Delgado E452 04/27/2019 Appointment: Charlene Oropeza WPtel: [address] [place] [address] [id number] E452 04/25/2019 Appointment: Rasta Palafox WPtel: [address] [place] [address] [id number] E452 03/28/2019 Appointment: Rasta Palafox WPtel: [address] [place] [address] [id number] E452 02/14/2019 Appointment: Rasta Palafox WPtel: [address] [place] [address] [id number] E452 01/31/2019 Appointment: Rasta Palafox WPtel: [address] [place] [address] [id number] E420 12/27/2018 Referral: Pending Gynecology Referral Information Referral Processed Referral: Pending Pulmonolog y Referral Information Referral Processed Referral: Pending Psychiatry Referral Information Referral Initiated Referral: Pending Respirator y Services Referral Information Referral Initiated Referral: Pending Ophthalmology Referral Information Referral Initiated Referral: [facility] WPtel: [address] [place] Pin Attacher placed a call out to the patient to notify her that it has been recommended that she be seen by a urologist. Patient agreed to be seen, does not have a provider of choice and no transportation issues. Pin Attacher faxed referral and clinical notes to [facility] in [place], [place] near the patient's home. Patient to [...] seen and prefers a provider in the [place] or [place] area. Pin Attacher placed a call out to everyone listed in the area and the only location that was able to accept the patient's insurance was [address] [address] and spoke with Maylin. Maylin asked that the patient's referral, face sheet and visit notes be faxed to . Pin Attacher faxed over requested documents. Patient appointment confirmation letter generated and mailed to her home address. Patient to call to schedule an appointment. [facility]: [address] [place] [address] Patient notified that it has been advised that she be seen by Neurology. Patient agreed to be seen and prefers to be seen by a provider in the [place], [place] area. Patient denies any concerns with transportation, and prefers to schedule her own appointment. Pin Attacher [facility] and spoke with Neeraj P: who confirmed that their office is able to accept new patients and the patient's insurance. After confirming the providers fax number, blurb writer faxed over the patient's referral, and [...] DM2, patient remains motivated to lose weight 11/09/2023 Medical Equipment No Medical Equipment data Advance Directives No Advance Directive data
--- OUTSIDE RECORDS SUMMARY | 2024-01-03 23:29 | XMS_ITS | CCD ---
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 Damaged Freight Inspector Name Role Phone Palomo KING, Anna Primary Care Provider Unav ailable Unavailable Chronic Care Management Unavaila ble Summary Purpose DataExchange Insurance Providers Payer name Policy type / Coverage type Covered libertarian ID Effective Begin Date Effective End Date SUKI MAYO [id number] Unknown Unknown Family history Mother Diagnosis Age [...] Unknown Disability 05/31/[address]: 524960225 Has never s moked or chewed tobacco 05/31/[address]: 182206081 Never drinks alco hol 05/31/2018 Has the patient ever used illegal drugs? Unknown Has never used illegal drugs 05/31/2018 DNR Order/ Advanced Directive Unknown Full Code 05/31/2018 Allergies, Adverse Reactions, Alerts Substance Reaction Codes Entered Date Inactivated Date Status OxyContin itch, RxNorm: 582108 01/13/2021 No Inactive Da te Active *No [...] Inactive Other ocean transportation intermediary (current) dr sharma therapy ICD-10: Z79.899 ICD-9: V58.69 04/25/2019 Inactive Type 2 diabetes mellitus wit hout complications ICD-10: E11.9 ICD-9: 250.00 10/03/2018 Inactive Wheezing ICD-10: R06.2 ICD-9: 786.07 08/08/2018 Inactive Abnormal urine finding ICD-10: R82.90 ICD-9: 791.9 09/24/2020 Resolved Abrasion of toe ICD-10: S90.416A ICD-9: 917.0 02/14/2020 Resolved [place] eye ICD-10: H10.029 ICD-9: 372.03 12/29/2019 Resolved [...] Fill Instructions montelukast 10 mg tablet RxNorm: 700454 Take 1 Tablet(s) Oral every day 024 2023 Active gabapentin 300 mg capsule RxNorm: 465159 Take 1 Capsule(s) Oral three times a day 024 2023 Active hydrocortisone 2.5 % topical cream RxNorm: 745181 Apply Application Topical two times a day a thin layer to the affected area(s) No Stop Date Active amoxicillin 500 mg tablet RxNorm: 686507 Take 1 Tablet(s) Oral two times a day 024 2023 Inactive omeprazole 40 mg capsule,delayed release RxNorm: 614501 Take 1 Capsule(s) Oral HS 024 2023 Active Januvia 100 mg tablet RxNorm: 212147 Take 1 Tablet(s) Oral every day 023 2023 Active amoxicillin 250 mg capsule RxNorm: 920089 Take 1 Capsule(s) Oral three times a day 023 2022 Inactive amoxicillin 500 mg tablet RxNorm: 709552 Take 1 Tablet(s) Oral three times a day 023 2022 Inactive Ozempic 1 mg/dose (4 mg/3 mL) subcutaneous pen injector RxNorm: 0147616 INJECT 1 UNITS DOSE SUBCUTANEOUSLY ON TUESDAY OF EACH WEEK 2023 Active MED IS ON B/O omeprazole 40 mg capsule,delayed release RxNorm: 453722 Take 1 Capsule(s) Oral HS 023 2022 Inactive Januvia 50 mg tablet RxNorm: 140336 Take 1 Tablet(s) Oral two times a day 023 2023 Inactive famotidine 20 mg tablet RxNorm: 102629 TAKE 1 TABLET BY MOUTH EACH MORNING 023 2023 Active Januvia 25 mg tablet RxNorm: 450926 Take 1 Tablet(s) Oral every day 023 2022 Inactive Ozempic 1 mg/dose (4 mg/3 mL) subcutaneous pen injector RxNorm: 3460330 INJECT 1 UNITS DOSE SUBCUTANEOUSLY ON TUESDAY OF EACH WEEK 023 2022 Inactive cetirizine 10 mg tablet RxNorm: 8112221 TAKE (1) TABLET BY MOUTH DAILY 023 2023 Inactive amoxicillin 500 mg tablet RxNorm: 760385 Take 1 Tablet(s) Oral two times a day 023 2022 Inactive omeprazole 40 mg capsule,delayed release RxNorm: 613131 Take 1 Capsule(s) Oral at bed time 023 2022 Inactive Easy Touch Alcohol Prep Pads RxNorm: 888709 USE EACH MORNING 023 2024 Active montelukast 10 mg tablet RxNorm: 106256 Take 1 Tablet(s) Oral every day 023 2022 Inactive gabapentin 300 mg capsule RxNorm: 197465 Take 1 Capsule(s) Oral three times a day 023 2022 Inactive metformin ER 500 mg 24 hr tablet,extended release RxNorm: 2720149 Take 1 Tablet(s) Oral every day with the evening meal 023 2022 Inactive famotidine 20 mg tablet RxNorm: 849458 Take 1 Tablet(s) Oral every morning 023 2022 Inactive levothyroxine 50 mcg tablet RxNorm: 335501 Take 1 Tablet(s) Oral every day 023 2023 [facility] hydrochlorothiazide 25 mg tablet RxNorm: 302874 Take 1 Tablet(s) Oral every day 023 2023 [facility] atorvastatin 20 mg tablet RxNorm: 605233 Take 1 Tablet(s) Oral every night at bedtime 023 2023 Active Macrobid 100 mg capsule RxNorm: 465458 1 Capsule(s) Oral every 12 hours with food 023 2022 Inactive omeprazole 40 mg capsule,delayed release RxNorm: 578744 Take 1 Capsule(s) Oral every night at bedtime 023 2022 Inactive trazodone 50 mg tablet RxNorm: 650396 Administer 1 Tablet(s) Oral every night at bedtime 023 No Stop Date Active cholecalciferol (vitamin D3) 50 mcg (2,000 unit) tablet RxNorm: 888501 Take 1 Tablet(s) Oral every day 023 2023 Active Ozempic 1 mg/dose (4 mg/3 mL) subcutaneous pen injector RxNorm: 8634587 USE 1 UNIT DOSE SUBCUTANEOUSLY ON TUE OF EACH WEEK 023 2022 Inactive lisinopril 2.5 mg tablet RxNorm: 449779 Take 1 Tablet(s) Oral every day 023 2022 Inactive Msg From [facility]: Dr. Zapata Requested Ozempic 1 mg/dose (4 mg/3 mL) subcutaneous pen injector RxNorm: 2735860 USE 1 UNIT DOSE SUBCUTANEOUSLY ON TUE OF EACH WEEK 023 2022 Inactive omeprazole 40 mg capsule,delayed release RxNorm: 720681 Take 1 Capsule(s) Oral every night at bedtime 023 2022 Inactive gabapentin 300 mg capsule RxNorm: 977033 Take 1 Capsule(s) Oral three times a day 023 2022 Inactive montelukast 10 mg tablet RxNorm: 775040 Take 1 Tablet(s) Oral every day 023 2022 Inactive omeprazole 20 mg capsule,delayed release RxNorm: 091501 Take 1 Capsule(s) Oral every evening 022 2022 Inactive Alcohol Prep Pads RxNorm: 883439 USE EACH MORNING 022 2021 Inactive E11.42 clotrimazole 1 % topical cream RxNorm: 254132 Apply 1 Application Topical two times a day as needed apply to affected area(s) twice daily until healed 022 2021 Inactive Victoza 2-Sebastián 0.6 mg/0.1 mL (18 mg/3 mL) subcutaneous pen injector RxNorm: 939582 Inject 0.6-1.8 Milligram(s) Subcutaneous once a week Inject 0.6mg/0.1ml week one, 1.2mg/0.2ml week two, 1.8/0.3ml weekly thereafter 022 2021 Inactive ibuprofen 800 mg tablet RxNorm: 061104 Take 1 Tablet(s) Oral Q8H as needed for pain take with food No Stop Date Active Ozempic 1 mg/dose (4 mg/3 mL) subcutaneous pen injector RxNorm: 5756923 Take 1 Unit Dose Subcutaneous QWeek Tuesday 022 2021 Inactive lisinopril 2.5 mg tablet RxNorm: 191947 Take 1 Tablet(s) Oral every day 2021 Inactive lisinopril 2.5 mg tablet RxNorm: 729239 Take 1 Tablet(s) Oral every day 2022 Inactive hydrochlorothiazide 25 mg tablet RxNorm: 892729 Take 1 Tablet(s) Oral every day 2021 Inactive Ozempic 1 mg/dose (4 mg/3 mL) subcutaneous pen injector RxNorm: 7406714 Take 1 Unit Dose Subcutaneous QWeek 2021 Inactive famotidine 20 mg tablet RxNorm: 823912 Take 1 Tablet(s) Oral every morning 2021 Inactive levothyroxine 50 mcg tablet RxNorm: 398131 Take 1 Tablet(s) Oral every day 2021 Inactive atorvastatin 20 mg tablet RxNorm: 172509 Take 1 Tablet(s) Oral every night at bedtime 2021 Inactive Cleocin T 1 % lotion RxNorm: 581321 Take 2 Gram(s) Topical every day 022 2021 Inactive Cleocin T 1 % lotion RxNorm: 870190 Take 2 Gram(s) Topical every day 022 2021 Inactive Ozempic 1 mg/dose (4 mg/3 mL) subcutaneous pen injector RxNorm: 5495901 Take 1 Unit Dose Subcutaneous QWeek 022 2021 Inactive Ozempic 0.25 mg or 0.5 mg (2 mg/1.5 mL) subcutaneous pen injector RxNorm: 3689600 INJECT 0.5 MGS SUBCUTANEOUSLY EVERY WEEK 022 2021 Inactive omeprazole 20 mg capsule,delayed release RxNorm: 074414 Take 1 Capsule(s) Oral every evening 2021 Inactive levothyroxine 50 mcg tablet RxNorm: 771225 Take 1 Tablet(s) Oral every day 2021 Inactive atorvastatin 20 mg tablet RxNorm: 717988 Take 1 Tablet(s) Oral every night at bedtime 2021 Inactive This refill negates all other refills of this medication lisinopril 2.5 mg tablet RxNorm: 755539 Take 1 Tablet(s) Oral every day 2021 Inactive gabapentin 300 mg capsule RxNorm: 599282 Take 1 Capsule(s) Oral three times a day 2021 Inactive montelukast 10 mg tablet RxNorm: 761102 Take 1 Tablet(s) Oral every day 2021 Inactive Myrbetriq 50 mg tablet,extended release RxNorm: 9885019 1 Tablet(s) Oral every day No Stop Date Active cholecalciferol (vitamin D3) 50 mcg (2,000 unit) tablet RxNorm: 200404 Take 1 Tablet(s) Oral every day 022 2022 Inactive Ozempic 0.25 mg or 0.5 mg (2 mg/1.5 mL) subcutaneous pen injector RxNorm: 1154749 inject 0.5 milligrams subcutaneously every week 2021 Inactive Ozempic 0.25 mg or 0.5 mg (2 mg/1.5 mL) subcutaneous pen injector RxNorm: 5033968 Take 0.5 Capsule(s) Injection once a week 022 2021 Inactive omeprazole 20 mg capsule,delayed release RxNorm: 106974 Take 1 Capsule(s) Oral every evening 2020 Inactive Ozempic 0.25 mg or 0.5 mg (2 mg/1.5 mL) subcutaneous pen injector RxNorm: 3217930 Take 0.25 Milligram(s) Subcutaneous once a week 2021 Inactive Easy Touch Alcohol Prep Pads RxNorm: 914547 USE DIRECTED EACH MORNING 2021 Inactive Probiotic 10 billion cell capsule RxNorm: 5409242 Take 1 Capsule(s) Oral every day 021 2021 Inactive levothyroxine 50 mcg tablet RxNorm: 826392 Take 1 Tablet(s) Oral every day 2020 Inactive Acid Abseiling Instructor (famotidine) 20 mg tablet RxNorm: 991163 Take 1 Tablet(s) Oral every morning 2020 Inactive Heartburn Relief (famotidine) 10 mg tablet RxNorm: 651406 Take 1 Tablet(s) Oral QAM 021 2020 Inactive levothyroxine 50 mcg tablet RxNorm: 028122 Take 1 Tablet(s) Oral QD 2020 Inactive Singulair 10 mg tablet RxNorm: 232957 TAKE (1) TABLET BY MOUTH DAILY 021 2020 Inactive metformin 1,000 mg tablet RxNorm: 487421 1 Tablet(s) Oral two times a day 021 2021 Inactive lisinopril 2.5 mg tablet RxNorm: 327248 Take 1 Tablet(s) Oral every day 021 2020 Inactive hydrochlorothiazide 25 mg tablet RxNorm: 891610 Take 1 Tablet(s) Oral every day 021 2020 Inactive ondansetron 4 mg disintegrating tablet RxNorm: 490548 1 Tablet(s) Oral two times a day 021 2020 Inactive Sudafed 12 Hour 120 mg tablet,extended release RxNorm: 3141933 TAKE 1 TABLET BY MOUTH EVERY 12 HOURS NEEDED 021 2021 Inactive Heartburn Relief (famotidine) 10 mg tablet RxNorm: 986618 Take 1 Tablet(s) Oral every morning 021 2020 Inactive omeprazole 20 mg capsule,delayed release RxNorm: 305045 1 Capsule(s) Oral every evening 021 2020 Inactive sertraline 100 mg tablet RxNorm: 084281 2 Tablet(s) Oral every day 021 2020 Inactive levothyroxine 50 mcg tablet RxNorm: 733775 TAKE (1) TABLET BY MOUTH DAILY 021 2020 Inactive metformin 500 mg tablet RxNorm: 491420 1 Tablet(s) Oral two times a day take with 500mg to equal 1000mg 021 2020 Inactive gabapentin 300 mg capsule RxNorm: 808551 TAKE 1 CAPSULE BY MOUTH THREE TIMES A DAY 021 2020 Inactive lisinopril 2.5 mg tablet RxNorm: 999764 TAKE 1 TABLET BY MOUTH DAILY 021 2020 Inactive gabapentin 300 mg capsule RxNorm: 366509 TAKE 1 CAPSULE BY MOUTH THREE TIMES A DAY 021 2020 Inactive Singulair 10 mg tablet RxNorm: 376531 TAKE (1) TABLET BY MOUTH DAILY 021 2020 Inactive metformin 1,000 mg tablet RxNorm: 797420 1 Tablet(s) Oral two times a day 021 2020 Inactive atorvastatin 40 mg tablet RxNorm: 294722 1 Tablet(s) Oral every day 021 2020 Inactive omeprazole 20 mg capsule,delayed release RxNorm: 814980 1 Capsule(s) Oral every evening 021 2020 Inactive famotidine 10 mg tablet RxNorm: 936525 1 Tablet(s) Oral every morning 021 2020 Inactive Alcohol Prep Pads RxNorm: 299801 USE EACH MORNING 021 2020 Inactive omeprazole 20 mg capsule,delayed release RxNorm: 668513 1 Capsule(s) Oral two times a day 2021 Inactive omeprazole 20 mg capsule,delayed release RxNorm: 129561 TAKE 1 CAPSULE BY MOUTH EVERY DAY 2021 Inactive Macrobid 100 mg capsule RxNorm: 255326 1 Capsule(s) Oral every 12 hours with food 2020 Inactive omeprazole 20 mg capsule,delayed release RxNorm: 883256 1 Capsule(s) Oral two times a day 2021 Inactive metformin 1,000 mg tablet RxNorm: 670508 1 Tablet(s) Oral two times a day 2020 Inactive start on September 11, 2020 metformin 500 mg tablet RxNorm: 139853 1 Tablet(s) Oral two times a day take with 500mg to equal 1000mg 2019 Inactive gabapentin 300 mg capsule RxNorm: 833847 TAKE 1 CAPSULE BY MOUTH THREE TIMES DAILY 2020 Inactive cetirizine 10 mg tablet RxNorm: 4057706 TAKE (1) TABLET BY MOUTH DAILY 2020 Inactive metformin 500 mg tablet RxNorm: 986536 1 Tablet(s) Oral two times a day 2019 Inactive loperamide 2 mg tablet RxNorm: 117446 1 Tablet(s) Oral as needed take one tablet after each loose stool, maximum of 8 tablets in 24 hours 2021 Inactive Sudafed 12 Hour 120 mg tablet,extended release RxNorm: 1581347 TAKE 1 TABLET BY MOUTH EVERY 12 HOURS NEEDED 2019 Inactive hydrochlorothiazide 25 mg tablet RxNorm: 102594 TAKE (1) TABLET BY MOUTH EVERY DAY 2019 Inactive omeprazole 20 mg capsule,delayed release RxNorm: 344424 TAKE 1 CAPSULE BY MOUTH EVERY DAY 2020 Inactive metformin 500 mg tablet RxNorm: 285270 1 Tablet(s) Oral every day 2019 Inactive True Metrix Glucose Test Strip RxNorm: 1 Test Strips Miscellaneous two times a day as needed No Stop Date Active metformin 500 mg tablet RxNorm: 131070 1 Tablet(s) Oral every day 020 2019 Inactive diclofenac sodium 75 mg tablet,delayed release RxNorm: 746371 1 Tablet(s) PO BID 2021 Inactive This refill negates all other refills of this medication Sudafed 12 Hour 120 mg tablet,extended release RxNorm: 5142654 TAKE 1 TABLET BY MOUTH EVERY 12 HOURS NEEDED 020 2019 Inactive True Metrix Glucose Test Strip RxNorm: 1 Test Strips Miscellaneous every morning 020 2019 Inactive 100/container True Metrix Glucose Test Strip RxNorm: 1 Test Strips Miscellaneous QAM 020 2019 Inactive 100/container loperamide 2 mg tablet RxNorm: 800148 1 Tablet(s) Oral as needed take one tablet after each loose stool, maximum of 8 tablets in 24 hours 020 2019 Inactive cetirizine 10 mg tablet RxNorm: 8101448 1 Tablet(s) PO daily 2019 Inactive loperamide 2 mg tablet RxNorm: 994161 1 Tablet(s) Oral as needed take one tablet after each loose stool, maximum of 8 tablets in 24 hours 020 2019 Inactive quetiapine 100 mg tablet RxNorm: 942675 1 Tablet(s) Oral every night at bedtime 020 2019 Inactive levothyroxine 50 mcg tablet RxNorm: 386114 1 Tablet(s) PO daily 020 2020 Inactive gabapentin 300 mg capsule RxNorm: 013394 1 Capsule(s) PO TID 020 2019 Inactive levothyroxine 50 mcg tablet RxNorm: 597707 1 Tablet(s) PO daily 020 2019 Inactive lisinopril 2.5 mg tablet RxNorm: 430991 1 Tablet(s) PO daily 2020 Inactive gabapentin 300 mg capsule RxNorm: 681176 1 Capsule(s) PO TID 2019 Inactive cetirizine 10 mg tablet RxNorm: 1047431 1 Tablet(s) PO daily 2019 Inactive Singulair 10 mg tablet RxNorm: 517385 1 Tablet(s) PO daily 2020 Inactive gentamicin 0.3 % eye drops RxNorm: 395535 1 Drop(s) ophthalmic (eye) four times a day 2019 Inactive gentamicin 0.3 % eye drops RxNorm: 431638 1 Drop(s) ophthalmic (eye) four times a day 2019 Inactive gentamicin 0.3 % eye drops RxNorm: 734304 1 Drop(s) ophthalmic (eye) four times a day 2019 Inactive hydrochlorothiazide 25 mg tablet RxNorm: 212076 1 Tablet(s) Oral every day 2019 Inactive Sudafed 12 Hour 120 mg tablet,extended release RxNorm: 2941979 TAKE (1) TABLET BY MOUTH EVERY 12 HOURS NEEDED 2019 Inactive loperamide 2 mg tablet RxNorm: 427694 1 Tablet(s) Oral as needed take one tablet after each loose stool, maximum of 8 tablets in 24 hours 2019 Inactive loperamide 2 mg tablet RxNorm: 653940 1 Tablet(s) Oral as needed take one tablet after each loose stool, maximum of 8 tablets in 24 hours 2019 Inactive atorvastatin 40 mg tablet RxNorm: 702101 1 Tablet(s) Oral every day 2020 Inactive quetiapine 100 mg tablet RxNorm: 443098 1 Tablet(s) Oral every night at bedtime 2019 Inactive sertraline 100 mg tablet RxNorm: 978695 1 Tablet(s) Oral 020 2019 Inactive omeprazole 20 mg capsule,delayed release RxNorm: 003363 1 Capsule(s) Oral every day 020 2019 Inactive amoxicillin 250 mg capsule RxNorm: 604419 1 Capsule(s) Oral three times a day 2019 Inactive multivitamin with iron-mineral tablet RxNorm: 1 Tablet(s) Oral every day 2021 Inactive cetirizine 10 mg tablet RxNorm: 6178906 1 Tablet(s) PO daily 2019 Inactive This refill negates all other refills of this medication. Please do not auto refill Singulair 10 mg tablet RxNorm: 224872 1 Tablet(s) PO daily 2019 Inactive This refill negates all other refills of this medication gabapentin 300 mg capsule RxNorm: 339523 1 Capsule(s) PO TID 2019 Inactive lisinopril 2.5 mg tablet RxNorm: 583770 1 Tablet(s) PO daily 2019 Inactive levothyroxine 50 mcg tablet RxNorm: 036362 1 Tablet(s) PO daily 2019 Inactive This refill negates all other refills of this medication hydrochlorothiazide 25 mg tablet RxNorm: 812494 1 Tablet(s) Oral every day 2019 Inactive fenugreek seed extract 500 mg capsule RxNorm: 1 Capsule(s) Oral three times a day 020 2021 Inactive Alcohol Prep Pads RxNorm: 735081 1 Patch TOP QAM 2020 Inactive loperamide 2 mg tablet RxNorm: 031665 1 Tablet(s) Oral as needed take one [...] 2019 Inactive hydrochlorothiazide 25 mg tablet RxNorm: 852700 1 Tablet(s) Oral every day 2019 Inactive Sudafed 12 Hour 120 mg tablet,extended release RxNorm: 9861990 1 Tablet(s) Oral every 12 hours as needed 2018 Inactive omeprazole 20 mg capsule,delayed release RxNorm: 241385 1 Capsule(s) Oral every day 2019 Inactive Sudafed 12 Hour 120 mg tablet,extended release RxNorm: 8992450 1 Tablet(s) Oral every 12 hours as needed 2018 Inactive pantoprazole 40 mg tablet,delayed release RxNorm: 578899 1 Tablet(s) Oral every day 2018 Inactive discontinue any other H2Blkr. and PPI albuterol sulfate 2.5 mg/3 mL (0.083 %) solution for nebulization RxNorm: 150387 1 Vial Inhalation every four hours as needed as needed for dyspnea 2019 Inactive 60/box. This refill negates all other refills of this medication. Please do not fill early. Please do not auto refill. Symbicort 160 mcg-4.5 mcg/actuation HFA aerosol inhaler RxNorm: 6575546 2 Puff(s) INH BID No Stop Date Active Alcohol Prep Pads RxNorm: 482823 1 Patch TOP QAM 019 2019 Inactive Ventolin HFA 90 mcg/actuation aerosol inhaler RxNorm: 792068 2 Puff(s) INH QID 2019 Inactive Please do not fill early. Please do not auto refill. This refill negates all other refills of this medication True Metrix Glucose Test Strip RxNorm: 1 Test Strips Miscellaneous QAM 019 2019 Inactive 100/container atorvastatin 40 mg tablet RxNorm: 353457 1 Tablet(s) Oral every day 019 2019 Inactive buspirone 7.5 mg tablet RxNorm: 937096 1 Tablet(s) PO BID 019 2020 Inactive This refill negates all other refills of this medication hydrochlorothiazide 12.5 mg tablet RxNorm: 936964 1 Tablet(s) PO QAM 019 2019 Inactive levmetamfetamine 50 mg nasal inhaler RxNorm: 1 Unit(s) NASAL Q3-4H Do not use more than every 3 hours or 8 times/24hours 019 2021 Inactive Please do not auto refill. This refill negates all other refills of this medication Ventolin HFA 90 mcg/actuation aerosol inhaler RxNorm: 537106 2 Puff(s) INH QID 019 2018 Inactive Please do not fill early. Please do not auto refill. This refill negates all other refills of this medication Singulair 10 mg tablet RxNorm: 915377 1 Tablet(s) PO daily 019 2019 Inactive This refill negates all other refills of this medication cetirizine 10 mg tablet RxNorm: 9384877 1 Tablet(s) PO daily 019 2019 Inactive This refill negates all other refills of this medication. Please do not auto refill levothyroxine 50 mcg tablet RxNorm: 305966 1 Tablet(s) PO daily 019 2019 Inactive This refill negates all other refills of this medication diclofenac sodium 75 mg tablet,delayed release RxNorm: 295295 1 Tablet(s) PO BID 019 2019 Inactive This refill negates all other refills of this medication ranitidine 150 mg tablet RxNorm: 246978 1 Tablet(s) PO BID 019 2018 Inactive This refill negates all other refills of this medication Calcium 600-D3 Plus (mag-zinc) 600 mg calcium-800 unit-50 mg tablet RxNorm: 1 Tablet(s) PO daily take an additonal tablet for itching. 2018 Inactive This refill negates all other refills of this medication albuterol sulfate 2.5 mg/3 mL (0.083 %) solution for nebulization RxNorm: 795479 1 Vial INH QID 2018 Inactive 60/box. This refill negates all other refills of this medication. Please do not fill early. Please do not auto refill. lisinopril 2.5 mg tablet RxNorm: 325745 1 Tablet(s) PO daily 019 2019 Inactive gabapentin 300 mg capsule RxNorm: 500286 1 Capsule(s) PO TID 019 2019 Inactive atorvastatin 20 mg tablet RxNorm: 149259 1 Tablet(s) PO QHS 2018 Inactive This refill negates all other refills of this medication TRUEplus Lancets 30 gauge RxNorm: 1 Lancets Miscellaneous QAM 019 2018 Inactive 100/box gabapentin 300 mg capsule RxNorm: 960105 1 Capsule(s) PO TID 2018 Inactive Flintstones Complete (iron) 18 mg iron chewable tablet RxNorm: 1 Tablet(s) PO daily 019 2021 Inactive This refill negates all other refills of this medication gabapentin 300 mg capsule RxNorm: 871080 1 Capsule(s) PO TID as needed 2018 Inactive True Metrix Glucose Test Strip RxNorm: 1 Test Strips Miscellaneous QAM 019 2018 Inactive 100/container Alcohol Prep Pads RxNorm: 903693 1 Patch TOP QAM 019 2018 Inactive TRUEplus Lancets 30 gauge RxNorm: 1 Lancets Miscellaneous QAM 019 2018 Inactive 100/box lisinopril 2.5 mg tablet RxNorm: 170269 1 Tablet(s) PO daily 019 2018 Inactive ranitidine 150 mg tablet RxNorm: 404832 1 Tablet(s) PO BID 019 2018 Inactive This refill negates all other refills of this medication albuterol sulfate 2.5 mg/3 mL (0.083 %) solution for nebulization RxNorm: 843648 1 Vial INH QID 019 2018 Inactive [...] this medication gabapentin 300 mg capsule RxNorm: 996635 1 Capsule(s) PO TID as needed 019 2018 Inactive atorvastatin 20 mg tablet RxNorm: 487375 1 Tablet(s) PO QHS 019 2018 Inactive This refill negates all other refills of this medication trazodone 50 mg tablet RxNorm: 485166 1 Tablet(s) PO QHS 019 2018 Inactive This refill negates all other refills of this medication Ventolin HFA 90 mcg/actuation aerosol inhaler RxNorm: 065390 2 Puff(s) INH QID 019 2018 Inactive Please do not fill early. Please do not auto refill. This refill negates all other refills of this medication Calcium 600-D3 Plus 600 mg calcium-800 unit-50 mg tablet RxNorm: 1 Tablet(s) PO daily take an additonal tablet for itching. 019 2018 Inactive This refill negates all other refills of this medication Singulair 10 mg tablet RxNorm: 197388 1 Tablet(s) PO daily 019 2018 Inactive This refill negates all other refills of this medication buspirone 7.5 mg tablet RxNorm: 134789 1 Tablet(s) PO BID 019 2018 Inactive This refill negates all other refills of this medication diclofenac sodium 75 mg tablet,delayed release RxNorm: 915673 1 Tablet(s) PO BID 019 2018 Inactive This refill negates all other refills of this medication hydrochlorothiazide 12.5 mg tablet RxNorm: 918280 1 Tablet(s) PO QAM 019 2018 Inactive metoprolol succinate ER 50 mg tablet,extended release 24 hr RxNorm: 773281 1 Tablet(s) PO daily 019 2018 Inactive This refill negates all other refills of this medication levothyroxine 50 mcg tablet RxNorm: 826381 1 Tablet(s) PO daily 019 2018 Inactive This refill negates all other refills of this medication cetirizine 10 mg tablet RxNorm: 5715296 1 Tablet(s) PO daily 019 2018 Inactive This refill negates all other refills of this medication. Please do not auto refill Flintstones Complete (iron) 18 mg iron chewable tablet RxNorm: 1 Tablet(s) PO daily 019 2018 Inactive This refill negates all other refills of this medication buspirone 7.5 mg tablet RxNorm: 801362 1 Tablet(s) PO BID 019 2018 Inactive cetirizine 10 mg tablet RxNorm: 9976042 1 Tablet(s) PO daily 2018 Inactive Guaiasorb DM 10 mg-100 mg/5 mL oral liquid RxNorm: 410798 10 Milliliter(s) PO As needed every 4 hr 018 2018 Inactive Vicks Vaporub 4.7 %-1.2 %-2.6 % topical ointment RxNorm: 8028840 1 Application TOP TID 018 2018 Inactive levmetamfetamine 50 mg nasal inhaler RxNorm: 1 Unit(s) NASAL Q3-4H 2017 Inactive sertraline 50 mg tablet RxNorm: 093632 1 Tablet(s) PO daily 018 2018 Inactive Please note dose trazodone 50 mg tablet RxNorm: 170141 1 Tablet(s) PO QHS 2018 Inactive sertraline 50 mg tablet RxNorm: 642830 1 Tablet(s) PO daily 018 2017 Inactive amoxicillin 500 mg tablet RxNorm: 791251 1 Tablet(s) PO Q12H 2017 Inactive albuterol sulfate 2.5 mg/3 mL (0.083 %) solution for nebulization RxNorm: 618748 1 Vial INH QID 2018 Inactive 60/box. Please do not fill early. Please do not auto refill. Prozac 10 mg capsule RxNorm: 003686 1 Capsule(s) PO daily 2017 Inactive buspirone 7.5 mg tablet RxNorm: 267102 1 Tablet(s) PO BID 018 2018 Inactive gabapentin 300 mg capsule RxNorm: 989221 1 Capsule(s) PO TID as needed 2018 Inactive hydrochlorothiazide 12.5 mg tablet RxNorm: 768844 1 Tablet(s) PO QAM 2018 Inactive ranitidine 150 mg tablet RxNorm: 997472 1 Tablet(s) PO BID 2018 Inactive Macrobid 100 mg capsule RxNorm: 944890 1 Capsule(s) PO Q12H 018 2017 Inactive Singulair 10 mg tablet RxNorm: 190641 1 Tablet(s) PO daily 018 2018 Inactive Ventolin HFA 90 mcg/actuation aerosol inhaler RxNorm: 4248409 2 Puff(s) INH QID 018 2018 Inactive Singulair 10 mg tablet RxNorm: 723322 1 Tablet(s) PO daily 018 2017 Inactive buspirone 7.5 mg tablet RxNorm: 786104 1 Tablet(s) PO BID 018 2017 Inactive Prozac 10 mg capsule RxNorm: 208440 1 Capsule(s) PO daily 018 2017 Inactive diclofenac sodium 75 mg tablet,delayed release RxNorm: 834985 1 Tablet(s) PO BID 018 2017 Inactive lisinopril 2.5 mg tablet RxNorm: 895110 1 Tablet(s) PO daily 018 2017 Inactive Neilmed Pediatric Sinus Rinse Refill packet RxNorm: 1 Unit Dose NASAL PRN 018 2021 Inactive metoprolol succinate ER 50 mg tablet,extended release 24 hr RxNorm: 941642 1 Tablet(s) PO daily 018 2017 Inactive levothyroxine 50 mcg tablet RxNorm: 279559 1 Tablet(s) PO daily 018 2017 Inactive TRUEplus Lancets 30 gauge RxNorm: 1 Lancets Miscellaneous QAM 018 2017 Inactive 100/box Ventolin HFA 90 mcg/actuation aerosol inhaler RxNorm: 992183 2 Puff(s) INH QID 018 2017 Inactive Aleve 220 mg capsule RxNorm: 5823350 1 Capsule(s) PO BID 018 2018 Inactive ranitidine 150 mg tablet RxNorm: 601642 1 Tablet(s) PO BID 018 2017 Inactive gabapentin 300 mg capsule RxNorm: 185834 1 Capsule(s) PO TID as needed 018 2017 Inactive atorvastatin 20 mg tablet RxNorm: 229955 1 Tablet(s) PO QHS 018 2017 Inactive True Metrix Glucose Test Strip RxNorm: 1 Test Strips Miscellaneous QAM 018 2017 Inactive 50/container Calcium 600-D3 Plus 600 mg calcium-800 unit-50 mg tablet RxNorm: 1 Tablet(s) PO daily take an additonal tablet for itching. 018 2017 Inactive hydrochlorothiazide 12.5 mg tablet RxNorm: 667830 1 Tablet(s) PO QAM 018 2017 Inactive Flintstones Complete (iron) 18 mg iron chewable tablet RxNorm: 1 Tablet(s) PO daily 018 2017 Inactive True Metrix Glucose Meter RxNorm: miscellaneous 019 2018 Inactive sertraline 50 mg tablet RxNorm: 938790 1 Tablet(s) PO daily 020 2019 Inactive loperamide 2 mg tablet RxNorm: 144663 oral 019 2018 Inactive d-mannose oral powder RxNorm: PO 018 2021 Inactive Symbicort 160 mcg-4.5 mcg/actuation HFA aerosol inhaler RxNorm: 2780509 2 Puff(s) INH BID 2018 Inactive Medication Administered No Medication Administered data Procedures Procedure Codes Date Patient Health Questionnaire CPT-4: DPHQ Electrocardiogram CPT-4: 99214 06/24/2023 Urinalysis, dip stick CPT-4: 40580 05/04/2023 [employer] Fany Assessment CPT-4: DSWA 01/02 Fall Risk Assessment CPT-4: DFRA 01/27/2023 Hypertension CPT-4: HTN 01/27/2023 Patient Health Questionnaire CPT-4: DPHQ Pain Screening CPT-4: PAS 2022 Tobacco Assessment/Screening CPT-4: TCA Hypertension CPT-4: HTN 08/17/2022 [employer] Fany Assessment CPT-4: DSWA 04/02 Patient Health [...] CPT-4: VACP Fall Risk Assessment SNOMED CT: 20701806 4 CPT-4: DFRA 01/13/2021 [employer] Fany Assessment CPT-4: DSWA 12/01 Urinalysis, dip stick CPT-4: 43217 09/24/2020 Patient Health Questionnaire CPT-4: DPHQ Electrocardiogram CPT-4: 78036 05/14/2020 Tobacco Assessment/Screening CPT-4: TCA Fall Risk Assessment SNOMED CT: 58210012 4 CPT-4: DFRA 01/01/2020 Functional Assessment CPT-4: DFA 01/01/2020 [employer] Fany Assessment CPT-4: DSWA 11/04 Patient Health Questionnaire CPT-4: DPHQ [employer] Fany Assessment CPT-4: DSWA 10/03 Hypertension CPT-4: HTN 10/17/2019 Fall Risk Assessment SNOMED CT: 95779252 4 CPT-4: DFRA 09/19/2019 Functional Assessment CPT-4: DFA 09/19/2019 Urinalysis, dip stick CPT-4: 03438 06/21/2019 Tobacco Assessment/Screening CPT-4: TCA Patient Health Questionnaire CPT-4: DPHQ AHA/REBECCA Classification Assessment CPT-4: DAHA 04/25/2019 Controlled Substance Report CPT-4: CTRSU 04/03 Urinalysis, dip stick CPT-4: 37607 03/28/2019 Urinalysis, dip stick CPT-4: 47170 03/28/2019 M3O-Jebwgfjnzdsgwio CPT-4: 16620 Unknown J4Q-Erlpkryhxrnksmn CPT-4: 66723 Unknown Q1O-Ittscnzupuciyus CPT-4: 85095 Unknown X0G-Wgnycaynfyjbutx CPT-4: 57938 Unknown S4W-Ethwnacfqykrnwx CPT-4: 85389 Unknown T3P-Cyaevgsdogppzlk CPT-4: 04113 Unknown H3Y-Tixtgdaylfyrvam CPT-4: 44936 Unknown N8N-Gfscvdvcteayaic CPT-4: 36598 Unknown J2Z-Tetxyvsxpywcafs CPT-4: 18642 Unknown K6X-Uhkgpfcikrapdtj CPT-4: 68087 Unknown K1V-Iyblioprxgsaqdj CPT-4: 87099 Unknown I1G-Cbinbpjdbypexsi CPT-4: 23695 Unknown Gynecology Referral SNOMED CT: 814476721 CPT-4: R14 Unknown M1D-Rsubypclqjbpkpp CPT-4: 05260 Unknown Reason For Visit No Reason For Visit data Plan of Care Planned Activity Notes Codes Status Date Referral: Pending Gynecology Referral Information Referral Processed Referral: Pending Pulmonolog y Referral Information Referral Processed Referral: Pending Psychiatry Referral Information Referral Initiated Referral: Pending Respirator y Services Referral Information Referral Initiated Referral: Pending Ophthalmol ogy Referral Information Referral Initiated Referral: [facility] WPtel: [address] [place] [address] [address] [employer] placed a call out to the patient to notify her that it has been recommended that she be seen by a urologist. Patient agreed to be seen, does not have a provider of choice and no transportation issues. [employer] faxed referral and clinical notes to [facility] in [place], [place] near the patient's home. Patient to [...] seen and prefers a provider in the [place] or [place] area. [employer] placed a call out to everyone listed in the area and the only location that was able to accept the patient's insurance was [address] [id number] and spoke with Maylin. Maylin asked that the patient's referral, face sheet and visit notes be faxed to . [employer] faxed over requested documents. Patient appointment confirmation letter generated and mailed to her home address. Patient to call to schedule an appointment. [facility] [address] [place] [address] Patient notified that it has been advised that she be seen by Neurology. Patient agreed to be seen and prefers to be seen by a provider in the [place], [place] area. Patient denies any concerns with transportation, and prefers to schedule her own appointment. [employer] placed a call out to [facility] and spoke with Neeraj Mcfarland: who confirmed that their office is able to accept new patients and the patient's insurance. After confirming the providers fax number, board writer faxed over the patient's referral, and [...]
--- OUTSIDE RECORDS SUMMARY | 2024-12-11 07:30 | XMS_ITS ---
Author Organization [facility] in [place] Address [address] [place] [address] Care Team Providers Care Anaesthesiologist Name Role Phone Lizbeth Snyder CNP Primary Care Provider U Kolby Jaquez [phone] REASON FOR VISIT Anne meeting with pt for Interstim Encounters Encounter Location Date Provider Diagnosis Urology [facility] [place] [address] [place] [address] 12/11/2024 Kolby Raymundo Plan Of Treatment No Information Progress Notes * Angela INGRAM MDOB:[birth year] (39 yo F)Acc No.[id number]:12/11/2024 Patient: Angela KRAUSE Provider: Mehran Raymundo MD :1985 A ge:39 Y S ex:Female Date:12/11/2024 Address:[address] [place], [place] [id number] Pcp:Lizbeth Snyder CNP Subjective: * Chief Complaints: * 1 . Anne meeting with pt for Interstim. * Active Problem List G89.29 Other chronic pain Modified On:08/07/2019W/U Status:confirmed N31.9 Neurogenic bladder Modified On:01/05/2024W/U Status:confirmed N39.41 Urge incontinence Modified On:01/05/2024U Status:confirmed * Medical History: Objective: * Vitals: Assessment: Plan: * Treatment: * * Sign off status: Completed Visit Status: P EN (Pending) true * Provider: Mehran Raymundo MD Date: 0 12/11/2024 Generated for Rani brown/Jeanine/Sophia on: 0 04/17/2025 02:00 PM EDT
--- OUTSIDE RECORDS SUMMARY | 2024-12-17 06:40 | XMS_ITS ---
Author Organization [facility] Address [address] [place] [address] Care Team Providers Care Blintze Roller Name Role Phone Hoang Lainez Unavailable [phone] REASON FOR VISIT LEFT SHOULDER Encounters Encounter Location Date Provider Diagnosis [facility] [address] [place] [address] [address] [place] [address] 12/17/2024 Hoang Lainez Plan Of Treatment No Information Progress Notes * JOSH HENDRICKSON MDOB:[birth year] (39 yo F)Acc No.[id number]:12/17/2024 Patient: JOSH KRAUSE Provider: Laurent Lainez MD :1985 A ge:39 Y S ex:Female Date:12/17/2024 Address:[address] [place], [place] [id number] Subjective: * Chief Complaints: * 1 . LEFT SHOULDER. * Medical History: Objective: * Vitals: Assessment: Plan: * Treatment: Forms: * Images: * Electronic signature of Hayden Lainez MD on 04/17/2025 at 02:06 PM EDT Sign off status: Pending * Provider: Laurent Lainez MD Date: 12/17/2024 Generated for Rani brown/Jeanine/Ricardoitting on: 04/17/2025 02:06 PM EDT
--- OUTSIDE RECORDS SUMMARY | 2025-04-16 06:00 | XMS_ITS ---
Author Organization [facility] in [place] Address [address] [place] [address] Care Team Providers Care Automotive Technician Name Role Phone Lizbeth Snyder CNP Primary Care Provider U Kolby Jaquez [phone] REASON FOR VISIT 9 month follow up Encounters Encounter Location Date Provider Diagnosis Urology [facility] [place] [address] [place] [address] 04/16/2025 Kolby Raymundo Plan Of Treatment No Information Progress Notes * Angela INGRAM MDOB:[birth year] (39 yo F)Acc No.[id number]:04/16/2025 UNLOCKED PROGRESS NOTE Patient: Angela KRAUSE Provider: Mehran Raymundo MD :1985 A ge:39 Y S ex:Female Date:04/16/2025 Address:[address] [place] [address], [facility] Pcp:Lizbeth Snyder CNP Subjective: * Chief Complaints: * 1 . 9 month follow up. * Medical History: Objective: * Vitals: Assessment: Plan: * Treatment: * * Electronic signature of Tarik Raymundo MD, [id number] on 04/17/2025 at 01:59 PM EDT Sign off status: Pending Visit Status: C ANC (Cancelled) * Provider: Mehran Raymundo MD Date: 0 04/16/2025 Generated for Printi ng/Faxing/eTransmitting on: 0 04/17/2025 01:59 PM EDT
--- OUTSIDE RECORDS SUMMARY | 2025-04-17 09:37 | XMS_ITS | Continuity of Care Document ---
Author Organization [facility] Address [address] [place] [address] Phone Care Team Providers Care Turret Lathe Set Up Operator Name Role Phone Lizbeth Snyder APRN Primary Care Provider Lizbeth Snyder APRN Attending Provider Care Teams Patient Care Team Team Status: Active Member Role Status Dates Kolby Raymundo MD Specialist Active Hoang Sierra DPM Specialist Active Lizbeth Snyder APRN PRODUCT EXPERT-C Primary Care Provider Active Patient Care Team Team Status: Inactive Member Role Status Dates Lizbeth Snyder APRN PRODUCT EXPERT-C Primary Care Provider Active Start: April 17, 2025 End: April 17, 2025 Lizbeth Snyder APRN PRODUCT EXPERT-C Attending Provider Act everett Start: April 17, 2025 End: April 17, 2025 Chief Complaint and Reason for Visit Chief Complaint Admit Date wellness April 17, 2025 1:01 pm Allergies, Adverse Reactions, Alerts Allergen Type Severity Reaction Last Updated Verified Status loratadine Allergy Unknown Unknown Reaction April 1:01pm Yes Active metformin Allergy Unknown Unknown Reaction April 1:01pm Yes Active methylprednisolone Allergy Unknown Unknown Reaction April 17, 2025 1:01pm Yes Active oxycodone Allergy Unknown Unknown Reaction April 1:01pm Yes Active Social History Smoking Status Status Start Date End Date Date of Observa tion Never smoked tobacco (finding) July 31, 2024 2:59pm Observation Status Observation Response Date of Response Legal Sex Female (finding) Sex Assigned At Female October 201985 Family History Relationship Condition Age at Onset Recorded Date/T zacarias father Hypertension Unknown Chronic obstructive pulmonary disease Unk nown Asthma Unknown Heart disease Unknown High blood cholesterol Unknown Problems Active Problems Medical Problem Onset Date Status Forehead abrasion Unknown Active Abrasion of nose Unknown Active UTI (urinary tract infection) Unknown Ac tive Body mass index [BMI] 50.0-59.9, adult Unknown Active MUKESH (obstructive sleep apnea) Unknown Ac tive Pain with urination Unknown Active Type 2 diabetes mellitus Unknown Active Anxiety Unknown Active Neuropathic pain of right thigh Unknown Active Depression Unknown Active Wellness examination Unknown Active Seasonal allergies Unknown Active Hyperlipidemia Unknown Active Diabetic neuropathy associat ed with diabetes mellitus due to underlying condition Unknown Active Pre-op evaluation Unknown Active Right shoulder strain Unknown Active GERD (gastroesophageal reflux disease) Unknown Active Hypertension Unknown Active Thyroid disease Unknown Active Asthma Unknown Active Sprain of left shoulder Unknown Active Medications Medication Status Dose Units Route Directions Qty Days St art Date Stop Date End Date Instructions Adherence Sitagliptin Phosphate (Januvia) 100 mg tablet Discont inued 0 .ROUTE .COMPLEX March 08, 2024 3:57pm April 13, 2024 12:42 pm take 1 tablet by mouth once daily Cetirizine (All Day Allergy (Cetirizine )) 10 mg tablet Discont inued 10 MG PO Daily March 19, 2024 9:27am December 04, 2024 8:52a m Atorvastati n 20 mg tablet Discont inued 20 MG PO Daily at bedtime March 28, 2024 4:36pm Dece 2023 8:45a m Buspirone 15 mg tablet Active 15 MG PO Three times daily as needed for anxiety 270 March 28, 2024 4:36pm Complies with drug therapy Hydrochloro thiazide 25 mg tablet Discont inued 25 MG PO Daily March 28, 2024 4:37pm Dece 2023 8:45a m Levothyroxi ne 50 mcg tablet Discont inued 50 MCG PO Daily March 28, 2024 4:37pm Dece 2023 8:45a m Omeprazole 40 mg capsule,del ayed release(DR/ EC) Discont inued 40 MG PO Daily April 09, 2024 10:10a m [facility] 2023 10:00 am Cholecalcif pattie (Vitamin D3) (Vitamin D3) 50 mcg (2,000 unit) capsule Discont inued 50 MCG PO Daily 90 April 13, 2024 12:41p m Dece tara 2023 8:49a m Sitagliptin Phosphate (Januvia) 100 mg tablet Discont inued 100 MG PO Daily 90 April 13, 2024 12:42p m Dece tara 2023 8:48a m Semaglutide 2 mg/dose (8 mg/3 mL) pen injector Discont inued 2 MG SUBCUT every week 3.75 April 17, 2024 10:09a m [facility] 2023 7:51a m Semaglutide 2 mg/dose (8 mg/3 mL) pen injector Discont inued 2 MG SUBCUT every week 3.75 May 30, 2024 7:51am Augus t 2023 10:38 am Semaglutide (Ozempic) 2 mg/dose (8 mg/3 mL) pen injector Discont inued 0 .ROUTE .COMPLEX 3 May 30, 2024 10:38a m [facility] 2023 10:18 am INJECT 2mg SUBCUTANEOUSL Y (UNDER THE SKIN) ONCE A WEEK Tirzepatide (Mounjaro) 5 mg/0.5 mL pen injector Discont inued 5 MG SUBCUT every week 2 2023 12:00a m [facility] 2023 9:45a m Dulaglutide (Trulicity) 0.75 mg/0.5 mL pen injector Discont inued 0.75 MG SUBCUT every week 2.5 2023 12:00a m [facility]2023 11:05 am Dulaglutide (Trulicity) 0.75 mg/0.5 mL pen injector Discont inued 0 .ROUTE .COMPLEX 2 2023 11:04a m [facility] 2023 2:05p m INJECT 0.5ml SUBCUTANEOUSL Y (UNDER THE SKIN) ONCE A WEEK Omeprazole 40 mg capsule,del ayed release(DR/ EC) Discont inued 40 MG PO Daily 90 90 2023 9:59am December 04, 2024 9:17a m Levothyroxi ne 50 mcg tablet Discont inued 50 MCG PO Daily 90 90 Dece 2023 8:45am March 04, 2025 8:00a m Hydrochloro thiazide 25 mg tablet Discont inued 25 MG PO Daily [facility] 2023 8:45am March 04, 2025 8:00a m Atorvastati n 20 mg tablet Discont inued 20 MG PO Daily at bedtime [facility] 2023 8:45am March 04, 2025 8:00a m Sitagliptin Phosphate (Januvia) 100 mg tablet Discont inued 100 MG PO Daily [facility] 2023 8:48am December 04, 2024 8:52a m Cholecalcif pattie (Vitamin D3) (Vitamin D3) 50 mcg (2,000 unit) capsule Discont inued 50 MCG PO Daily [facility] 2023 8:49am December 04, 2024 8:52a m Dulaglutide (Trulicity) 0.75 mg/0.5 mL pen injector Discont inued 0 .ROUTE .COMPLEX 2 [facility] er 2023 2:05pm Febru bernard 2024 8:51a m INJECT 0.5ml SUBCUTANEOUSL Y (UNDER THE SKIN) ONCE A WEEK Dulaglutide (Trulicity) 0.75 mg/0.5 mL pen injector Discont inued 0 .ROUTE .COMPLEX 2 ua 2024 8:51am December 04, 2024 11:54 am INJECT 0.5ml SUBCUTANEOUSL Y (UNDER THE SKIN) ONCE A WEEK Cholecalcif pattie (Vitamin D3) (Vitamin D3) 50 mcg (2,000 unit) capsule Discont inued 50 MCG PO Daily December 04, 2024 8:51am March 04, 2025 8:00a m Cetirizine (All Day Allergy (Cetirizine )) 10 mg tablet Active 10 MG PO Daily December 04, 2024 8:51am Complies with drug therapy Sitagliptin Phosphate (Januvia) 100 mg tablet Discont inued 100 MG PO Daily December 04, 2024 8:51am March 04, 2025 8:00a m Omeprazole 40 mg capsule,del ayed release(DR/ EC) Active 40 MG PO Daily December 04, 2024 9:17am Complies with drug therapy Montelukast 10 mg tablet Active 10 MG PO Daily 30 December 12, 2024 11:31a m Complies with drug therapy Tirzepatide (Weight Loss) (Zepbound) 2.5 mg/0.5 mL pen injector Discont inued 2.5 MG SUBCUT every week 2 December 12, 2024 11:33a m April 17, 2025 1:21p m for 4 weeks Dulaglutide (Trulicity) 1.5 mg/0.5 mL pen injector Discont inued 1.5 MG SUBCUT every week 6.5 January 17, 2025 12:00a m January 17, 2025 11:22 am Dulaglutide (Trulicity) 1.5 mg/0.5 mL pen injector Active 0 .ROUTE .COMPLEX January 17, 2025 11:22a m INJECT 1.5mg SUBCUTANEOUSL Y (UNDER THE SKIN) once a week Complies with drug therapy Levothyroxi ne 50 mcg tablet Active 50 MCG PO Daily March 04, 2025 8:00am Complies with drug therapy Atorvastati n 20 mg tablet Active 20 MG PO Daily at bedtime March 04, 2025 8:00am Complies with drug therapy Sitagliptin Phosphate (Januvia) 100 mg tablet Active 100 MG PO Daily March 04, 2025 8:00am Complies with drug therapy Hydrochloro thiazide 25 mg tablet Active 25 MG PO Daily March 04, 2025 8:00am Complies with drug therapy Cholecalcif pattie (Vitamin D3) (Vitamin D3) 50 mcg (2,000 unit) capsule Active 50 MCG PO Daily March 04, 2025 8:00am Complies with drug therapy Hydroxyzine Pamoate 25 mg capsule Discont inued 25 MG PO Twice daily as needed December 02, 2023 1:00am December 02, 2023 10:13 am Albuterol Sulfate (Ventolin Hfa) 90 mcg/actuati on HFA aerosol inhaler Active 2 PUFF INHALA TION EVERY 4-6 HOURS as needed December 02, 2023 1:00am Complies with drug therapy Montelukast 10 mg tablet Discont inued 10 MG PO Daily December 02, 2023 1:00am December 02, 2023 11:00 am Gabapentin 300 mg capsule Discont inued 300 MG PO Three times daily December 02, 2023 1:00am December 02, 2023 11:00 am Levothyroxi ne 50 mcg tablet Discont inued 50 MCG PO Daily December 02, 2023 1:00am March 28, 2024 4:38p m Famotidine 20 mg tablet Discont inued 20 MG PO Daily December 02, 2023 1:00am December 02, 2023 10:12 am Sertraline 100 mg tablet Active 100 MG PO Daily December 02, 2023 1:00am Complies with drug therapy Oxybutynin Chloride 10 mg tablet extended release 24hr Discont inued 10 MG PO Twice daily December 02, 2023 1:00am December 02, 2023 10:13 am Trazodone 50 mg tablet Active 50 MG PO Daily at bedtime December 02, 2023 1:00am Complies with drug therapy Atorvastati n 20 mg tablet Discont inued 20 MG PO Daily at bedtime December 02, 2023 1:00am March 28, 2024 4:38p m Cholecalcif pattie (Vitamin D3) (Vitamin D3) 50 mcg (2,000 unit) capsule Discont inued 2000 UNIT PO Daily December 02, 2023 1:00am April 13, 2024 12:42 pm Budesonide- Formoterol (Symbicort) 160-4.5 mcg/actuati on HFA aerosol inhaler Discont inued 1 PUFF INHALA TION Daily December 02, 2023 1:00am December 02, 2023 10:13 am Aripiprazol e 10 mg tablet Active 10 MG PO Daily December 02, 2023 1:00am Complies with drug therapy Buspirone 15 mg tablet Discont inued 15 MG PO Twice daily December 02, 2023 1:00am December 02, 2023 10:13 am Hydrochloro thiazide 25 mg tablet Discont inued 25 MG PO Daily December 02, 2023 1:00am March 28, 2024 4:38p m Cetirizine 10 mg tablet Discont inued 10 MG PO Daily December 02, 2023 1:00am December 02, 2023 10:12 am Semaglutide (Ozempic) 1 mg/dose (4 mg/3 mL) pen injector Discont inued 1 MG SUBCUT every week December 02, 2023 1:00am February 09, 2024 2:23p m Sitagliptin Phosphate (Januvia) 50 mg tablet Discont inued 50 MG PO Twice daily December 02, 2023 1:00am December 02, 2023 10:11 am Lisinopril 2.5 mg tablet Active 2.5 MG PO Daily December 02, 2023 1:00am Complies with drug therapy Mirabegron (Myrbetriq) 50 mg tablet extended release 24 hr Active 50 MG PO Daily December 02, 2023 1:00am Complies with drug therapy Omeprazole 40 mg capsule,del ayed release(DR/ EC) Discont inued 40 MG PO Daily December 02, 2023 1:00am April 09, 2024 10:12 am Sitagliptin Phosphate (Januvia) 100 mg tablet Discont inued 100 MG PO Daily December 02, 2023 1:00am March 08, 2024 3:57p m Budesonide- Formoterol (Symbicort) 160-4.5 mcg/actuati on HFA aerosol inhaler Active 2 PUFF INHALA TION Daily as needed December 02, 2023 10:12a m Complies with drug therapy Buspirone 15 mg tablet Discont inued 15 MG PO Three times daily as needed December 02, 2023 10:12a m March 28, 2024 4:38p m Hydroxyzine Pamoate 25 mg capsule Active 25 MG PO Daily as needed December 02, 2023 10:13a m Complies with drug therapy Montelukast 10 mg tablet Discont inued 10 MG PO Daily December 02, 2023 10:56a m December 12, 2024 11:32 am Gabapentin 300 mg capsule Discont inued 300 MG PO Three times daily December 02, 2023 10:57a m Augus t 2023 8:40a m Cetirizine (All Day Allergy (Cetirizine )) 10 mg tablet Discont inued 10 MG PO Daily December 02, 2023 1:00am March 19, 2024 9:27a m Semaglutide 2 mg/dose (8 mg/3 mL) pen injector Discont inued 1 MG SUBCUT every week 1.87 5 February 09, 2024 2:21pm April 17, 2024 10:09 am Nitrofurant oin Monohyd/M-C ryst (Macrobid) 100 mg capsule Discont inued 100 MG PO Twice daily 10 February 09, 2024 12:00a m February 28, 2024 10:18 am must administer with a meal/food Diclofenac Sodium 75 mg tablet,eduin yed release (DR/EC) Active 75 MG PO Twice daily as needed December 04, 2024 1:00am Complies with drug therapy Tirzepatide (Weight Loss) (Zepbound) 2.5 mg/0.5 mL pen injector Discont inued 2.5 MG SUBCUT every week December 04, 2024 1:00am December 12, 2024 11:33 am for 4 weeks Lidocaine (Lidoderm) 5 % adhesive patch,medic ated Active 1 PATCH TOPICA L Daily December 04, 2024 1:00am leave on most painful area for up to 12 hrs Complies with drug therapy Gabapentin 300 mg capsule Active 400 MG PO Three times daily May 03, 2024 8:40am Complies with drug therapy Tizanidine 2 mg tablet Active 2 MG PO Every 8 hours as needed for muscle spasticity 01 08May 03, 2024 12:00a m Complies with drug therapy Mupirocin 2 % ointment Discont inued 1 APPLIC TOPICA L Twice daily 23 04May 03, 2024 12:00a m April 17, 2025 1:22p m Gabapentin 100 mg capsule Active 100 MG PO Daily 2024 1:00am Complies with drug therapy Mupirocin 2 % ointment Discont inued 1 APPLIC TOPICA L Twice daily 2024 1:00am April 17, 2025 1:22p m Vital Signs Vital Reading Result Reference Range Collection Date/Time Height 59 [in_i] April 17, 2025 1:04pm Weight 134.26 kg April 17, 2025 1:04pm Body Temperature 96.5 [degF] 97.6-99.0 April 17, 2025 1:04pm Heart Rate 76 /min 60-100 April 17, 2025 1:04pm Oxygen saturation by Pulse oximetry 98 % 95-100 April 17, 2025 1:04 pm BP Systolic 124 mm[Hg] 100-140 April 17, 2025 1:04pm BP Diastolic 72 mm[Hg] 60-100 April 17, 2025 1:04pm BMI (Body Mass Index) 59.8 kg/m2 April 022024 1:04pm Advance Directives Advance Directive Response Recorded Date/ Time Advance Directives No July 25, 2024 10:23am Insurance Providers Guarantor Angela Juan Jose Address [address] [place] [address] [place] [address] Contact Info. Home Phone: Payer Policy Id Subscriber's Name Subscriber Id Effectiv e Date Expiration Date Medicaid [id number] Angela Ingram [id number] John[employer] Medicaid [id number] Angela Ingram [id number] Encounters Encounter Location(s) Arrival/Admit Date Discharge/Depart Date Provider(s) Departed Physician/Prov ider Office Visit -[facility] April 17, 2025 1:01pm April 17, 2025 1:36pm Lizbeth Snyder APRN CNP Plan of Treatment Future Tests Future scheduled test information is unavailable Pending Tests Pending diagnostic test information is unavailable Future Visits Future appointment information is unavailable Referrals to Other Providers Referral information is unavailable Future Procedures Procedure Name Ordered Date Scheduled Date AMB POC Hgb A1C April 17, 2025 1:20pm Future Medications Future medication information is unavailable Patient Instructions Patient instructions are unavailable
--- OUTSIDE RECORDS SUMMARY | 2025-04-17 13:56 | XMS_ITS | Encounter Summary ---
Author Organization [employer] Address [id number] [address] [place] [address] Care Team Providers Care Cnc Mill Programmer Name Role Phone Lizbeth Snyder APRN-CHRISTINE Primary Care Provid er Reason for Visit * Reason Comments Med Refill Encounter Details Date Type Department Care Team (Late st Contact Info) Description 06/05/2023 Refill [facility] [address] [facility] [address] [place] [address] Katherine Garcia MD [address] [facility] [address] [place] [address] Moderate persistent asthma, unspecified whether complicated Social History Tobacco Use Types Packs/Day Years Used Date Smoking Tobacco: Never Smokeless Tobacco: Never Alcohol Use Standard Drinks/Week Comments No 0 (1 standard drink = 0.6 oz pur e alcohol) PHQ-2 Answer Date Recorded Total Score 3 09/11/2021 Childcare Answer Date Recorded Childcare Unknown 03/06/2019 Employment Answer Date Recorded Employment Unknown 03/06/2019 Hunger Screening Answer Date Recorded Within the past 12 months we worried whether our food would run out before we got money to buy more. Never True 04/11/2023 Within the past 12 months th e food we bought just didn't last and we didn't have money to get more. Never True 04/11/2023 Purpose - Life Answer Date Recorded Purpose and direction in life Unknown Comments No Sex and Gender Information Value Date Recorded Sex Assigned at Female 04/08/2023 12:31 PM EDT Legal Sex Female 10:00 AM EST Gender Identity Female 04/30/2019 5:14 PM EDT Sexual Orientation Not on file documented as of this encounter Plan of Treatment Upcoming Encounters Date Type Department Care Team (Late st Contact Info) Description 05/01/2025 9:00 AM EDT Office Visit [facility] [address] [place] [address] documented as of this encounter Visit Diagnoses Diagnosis Moderate persistent asthma, unspecified whether complicated documented in this encounter Additional Health Concerns Assessment Noted Time PHQ-9 Depression Total Score: 3 09/11/20 21 1:26 PM EST A Body Mass Index follow-up plan has been documented for the patient 02/01/2023 3:20 PM EDT documented as of this encounter Care Teams Cnc Mill Programmer Relationship Specialty Start Date End Date Lizbeth Snyder APRN-NP [address] [place] [address] PCP - General 12/10/23 documented as of this encounter
--- OUTSIDE RECORDS SUMMARY | 2025-04-17 13:57 | XMS_ITS | Encounter Summary ---
Author Organization [employer] Address [id number] [address] [place] [address] Care Team Providers Care Straightening Press Operator Helper Name Role Phone Lizbeth Snyder APRN-CHRISTINE Primary Care Provid er Reason for Visit * Reason Comments Med Refill Encounter Details Date Type Department Care Team (Late st Contact Info) Description 05/14/2023 Refill [facility] [address] [facility] [address] [place] [address] Katherine Garcia MD [address] [facility] [address] [place] [address] Moderate persistent asthma, unspecified whether [...] Services - [facility] [address] [place] [address] documented as of this encounter Visit Diagnoses Diagnosis Moderate persistent asthma, unspecified whether complicated documented in this encounter Additional Health Concerns Assessment Noted Time PHQ-9 Depression Total Score: 3 09/11/20 21 1:26 PM EST A Body Mass Index follow-up plan has been documented for the patient 02/01/2023 3:20 PM EDT documented as of this encounter Care Teams Straightening Press Operator Helper Relationship Specialty Start Date End Date Lizbeth Snyder APRN-NP [address] [place] [address] PCP - General 12/10/23 documented as of this encounter
--- OUTSIDE RECORDS SUMMARY | 2025-04-17 13:57 | XMS_ITS | Encounter Summary ---
Author Organization [employer] Address [id number] [address] [place] [address] Care Team Providers Care Terrestrial Ecologist Name Role Phone Lizbeth Snyder APRN-CHRISTINE Primary Care Provid er Reason for Visit * Reason Comments Med Refill Encounter Details Date Type Department Care Team (Late st Contact Info) Description 05/23/2023 Refill [facility] [address] [facility] [address] [place] [address] Katherine Garcia MD [address] [facility] [address] [place] [address] Moderate persistent asthma, unspecified whether [...] Services - [facility] [address] [place] [address] documented as of this encounter Visit Diagnoses Diagnosis Moderate persistent asthma, unspecified whether complicated documented in this encounter Additional Health Concerns Assessment Noted Time PHQ-9 Depression Total Score: 3 09/11/20 21 1:26 PM EST A Body Mass Index follow-up plan has been documented for the patient 02/01/2023 3:20 PM EDT documented as of this encounter Care Teams Terrestrial Ecologist Relationship Specialty Start Date End Date Lizbeth Snyder APRN-NP [address] [place] [address] PCP - General 12/10/23 documented as of this encounter
--- OUTSIDE RECORDS SUMMARY | 2025-04-17 13:57 | XMS_ITS | Encounter Summary ---
Author Organization [employer] Sys [employer] Address [facility] [id number] [address] [place] [address] Care Team Providers Care Light Adjuster Name Role Phone Lizbeth Snyder APRN-CHRISTINE Primary Care Provid er Reason for Visit * Reason Comments Med Refill Encounter Details Date Type Department Care Team (Late st Contact Info) Description 05/30/2023 Refill [facility] Pul[facility] [address] [facility] [address] [place] [address] Katherine Garcia MD [address] [facility] [address] [place] [address] Moderate persistent asthma, unspecified whether [...] Services - Kari [address] [place] [address] documented as of this encounter Visit Diagnoses Diagnosis Moderate persistent asthma, unspecified whether complicated documented in this encounter Additional Health Concerns Assessment Noted Time PHQ-9 Depression Total Score: 3 09/11/20 21 1:26 PM EST A Body Mass Index follow-up plan has been documented for the patient 02/01/2023 3:20 PM EDT documented as of this encounter Care Teams Light Adjuster Relationship Specialty Start Date End Date Lizbeth Snyder APRN-NP [address] [place] [address] PCP - General 12/10/23 documented as of this encounter
--- OUTSIDE RECORDS SUMMARY | 2025-04-17 14:04 | XMS_ITS | Clinical Summary ---
Author Organization [facility] Address [address] [facility] [facility] [place] [address] Care Team Providers Care Drag Car Racer Name Role Phone Anna Culver MD Unavailable Lizbeth Snyder NP Primary Care Provider Hoang Ragland MD Unavailable [phone] Yamile Lofton Unavailable Allergies Active Allergy Reactions Criticality Noted Date Comments Loratadine Palpitations,Unknown Low 07/20/2017 Metformin Unknown 04/28/2023 Methylprednisolone Hives,Unknown Low 04/09/2019 Oxycodone Rash,Unknown Low 07/22/2021 Medications Apple Cider Vinegar 188 MG capsule Apple Cider Vinegar Active busPIRone (Buspar) 15 MG tablet Take 15 mg by mouth Daily Active Calcium Citrate-Vitamin D (Calcium + D) 315-5 MG-MCG tablet Calcium + D Active cetirizine (ZyrTEC) 10 MG tablet Active hydroCHLOROthiazid e (HYDRODiuril) 25 MG tablet Take 25 mg by mouth Daily Active HYDROcodone-acetam inophen (Gray) 5-325 MG tablet Acti ve hydrOXYzine pamoate (Vistaril) 25 MG capsule TAKE 1 CAPSULE BY MOUTH TWICE PER DAY NEEDED Active levothyroxine (Synthroid, Levoxyl) 50 MCG tablet Active lisinopril 2.5 MG tablet Active loperamide (Imodium) 2 MG capsule take 1 capsule by mouth if needed AFTER EACH LOOSE STOOL NOT TO EXCEED 8 CAPSULES PER DAY Active meloxicam (Mobic) 15 MG tablet take 1 tablet by mouth once daily with food if needed for DISCOMFORT Active montelukast (Singulair) 10 MG tablet Active nitrofurantoin, macrocrystal-monoh ydrate, (Macrobid) 100 MG capsule TAKE 1 CAPSULE BY MOUTH EVERY 12 HOURS WITH FOOD Active omeprazole (PriLOSEC) [address] capsule Active ondansetron (Zofran) 4 MG tablet Active oxybutynin XL (Ditropan-XL) 10 MG 24 hr tablet 09/23/20 22 Active pseudoephedrine ER (Sudafed-12 Hour) 120 MG 12 hr tablet Active QUEtiapine (SEROquel) 100 MG tablet Active Ozempic, 1 MG/DOSE, 4 MG/3ML solution pen-injector INJECT 1 UNITS DOSE SUBCUTANEOUSLY ON TUESDAY OF EACH WEEK 04/19/20 23 Active sertraline (Zoloft) 100 MG tablet Active traZODone (Desyrel) 50 MG tablet Take 50 mg by mouth at bedtime. 04/21/20 23 Active Turmeric powder as directed Ac tive SITagliptin (Januvia) 50 MG tablet Take 100 mg by mouth in the morning. Active Januvia 100 MG tablet Take 100 mg by mouth Daily 09/21/20 23 Active Trulicity 0.75 MG/0.5ML solution auto-injector INJECT 0.5ml SUBCUTANEOUSLY (UNDER THE SKIN) ONCE A WEEK 06/22/20 24 Active predniSONE (Deltasone) 10 MG tabletIndications: Capsulitis of right foot,Sprain of ligament of tarsometatarsal joint of right foot, sequela,Pain in joint of right foot,Difficulty walking 1 tablet twice daily x 7 days; followed by 1 tablet daily as directed until complete 21 tablet 07/20/20 24 Active Additional Information Patient not taking.Reported on 09/10/2024 gabapentin (Neurontin) 100 MG capsuleIndications :Paresthesia Take 1 capsule (100 mg) by mouth in the morning and 1 capsule (100 mg) in the evening and 1 capsule (100 mg) before bedtime. 270 capsule 2 02/15/20 25 025 Active gabapentin (Neurontin) 400 MG capsuleIndications :Polyneuropathy Take 1 capsule (400 mg) by mouth in the morning and 1 capsule (400 mg) in the evening and 1 capsule (400 mg) before bedtime. 270 capsule 2 02/15/20 25 026 Active Active Problems No known active problems Encounters Date Type Department Care Team Description 02/14/2025 Refill [facility] [address] [place] [phone] Camacho Moreno, CLAUDIA Paresthesia; Polyneuropathy 01/16/2025 3:00 PM EDT Office Visit [facility] [address] [phone] Yamile Lofton PA Polyneuropathy; Paresthesia 01/16/2025 Bamboo flowsheet [facility] [address] [phone] Yamile Lofton PA from Last 3 Months Immunizations Immunization Administration Dates Next Due DTP 11/26/2020 Influenza, injectable, quadrivalent 06/28/2019 Influenza, injectable, quadrivalent, preservativ e free 07/30/2020 Family History Medical History Relation Name Comments Bipolar disorder Daughter Asthma Father Jose L Julita Francia Emphysema Father Jose L Julita Francia Heart disease Father Jose L Julita Francia Hyperlipidemia Father Jose L Julita Francia Hypertension Father Jose L Julita Francia Diabetes Mother's Sister Lor Reffle Bipolar disorder Sister Relation Name Status Comments Daughter Father Jose L Julita Francia Mother Alive Mother's Sister Lor Reffle Sister Social History Tobacco Use Types Packs/Day Years Used Date Smoking Tobacco: Never Smokeless Tobacco: Never Tobacco Cessation:Counseling Given: Not Answered Alcohol Use Standard Drinks/Week Comments Never 0 (1 standard drink = 0.6 oz pure alcohol) Caffeine intake: >4 cups per day pop Comments Unknown Sex and Gender Information Value Date Recorded Sex Assigned at Not on file Legal Sex Female 8:26 PM EDT Gender Identity Not on file Sexual Orientation Not on file Last Filed Vital Signs Vital Sign Reading Time Taken Comments Blood Pressure 128/80 01/16/2025 2:58 PM EDT Pulse - - Temperature - - Respiratory Rate - - Oxygen Saturation - - Inhaled Oxygen Concentration - - Weight 131 kg (288 lb) 01/16/2025 2:58 PM EDT Height 149.9 cm (4' 11 ) 01/16/2025 2:58 PM EDT Body Mass Index 58.17 01/16/2025 2:58 PM EDT Plan of Treatment Upcoming Encounters Date Type Department Care Team (Late st Contact Info) Description 05/22/2025 1:30 PM EDT Procedure Visit [facility] [address] [place] [phone] Hoang Sierra, DPM [address] [place], [place] [id number] Health Maintenance Due Date Last Done Comments Pap Smear 2006 Cervical Cancer Screening 2015 HPV/Cotest 2015 Influenza Vaccine (#1) 2025 07/30/2020, 2018 Insurance [employer] Care Teams Drag Car Racer Relationship Specialty Start Date End Date Lizbeth Snyder NP [address] [place] [address] PCP - General Family Medicine 03/14/24 Anna Culver MD [address] [place] [address] Referring Physician Family Medicine 08/17/23 Hoang Ragland MD [address] [place] [address] Referring Physician Neurology 09/10/24 Yamile Lofton PA [address] [facility] [address] [place] [address] Physician Child Welfare Specialist Neurology 09/10/24
[2025-04-17 14:19] LABS: Hematocrit 37.7 % (36.0-48.0); Hemoglobin 12.0 g/dL (12.0-16.0); Immature Granulocytes Abs Auto 0.07 10^3/uL (0.00-0.03); Immature Granulocytes Pct Auto 0.8 % (0.0-0.5); Lymphocytes Absolute Auto 2.3 10^3/uL (1.2-3.8); Mean Corpuscular HGB Conc 31.8 g/dL (29.9-35.2); Mean Corpuscular Hemoglobin 26.0 pg (26.7-34.0); Mean Corpuscular Volume 81.8 fL (81.0-99.0); Platelet Count 325 10^3/uL (150-450); Red Blood Count 4.61 10^6/uL (4.20-5.40); White Blood Count 9.2 10^3/uL (4.0-11.0)
--- OUTSIDE RECORDS SUMMARY | 2025-04-17 14:27 | XMS_ITS | Patient Health Record ---
Author Organization [facility] Address [address] [place] [address] Care Team Providers Care Supervisor Steffen House Name Role Phone Hoang Lainez Unavailable [phone] Reason For Referral No Information Plan Of Treatment No Information Insurance Providers Payer Name Payer Address Payer Phone Subscriber Number Group Number Insured Name Patient Relationship to Insured Coverage Start Date Coverage End Date Medicaid [employer] [place] [address] [place] [address] [id number] JOSH CARMEN Self - patient is the insured
--- OUTSIDE RECORDS SUMMARY | 2025-04-17 14:30 | XMS_ITS | Encounter Summary ---
Author Organization [facility] Address [facility] [id number] [address] [place] [address] Care Team Providers Care Library Circulation Assistant Name Role Phone Lizbeth Snyder APRN-SHACKLER Primary Care Provid er Reason for Referral * Misc (Routine) - Closed Specialty Diagnoses / Procedures Referred By Contac t Referred To Contact Diagnoses MUKESH (obstructive sleep apnea) Procedures Home sleep study Katherine Garcia MD [address] [facility] [address] [place] [address] Phone: tel: fax: Referral ID Status Reason Start Date Expiration Date Visits Re quested Visits Authorized [id number] Closed 08/15/2024 08/15/2025 1 1 Encounter Details Date Type Department Care Team (Late st Contact Info) Description 08/15/2024 Orders Only [facility] Pul[facility] [address] [place] [address] Kaya Zamora, RN MUKESH (obstructive sleep apnea) (Primary Dx) Social History Tobacco Use Types Packs/Day Years Used Date Smoking Tobacco: Never Smokeless Tobacco: Never Alcohol Use Standard Drinks/Week Comments No 0 (1 standard drink = 0.6 oz pur e alcohol) PHQ-2 Answer Date Recorded Total Score 8 02/06/2024 Childcare Answer Date Recorded Childcare Unknown 03/06/2019 Employment Answer Date Recorded Employment Unknown 03/06/2019 Hunger Screening Answer Date Recorded Within the past 12 months we worried whether our food would run out before we got money to buy more. Never True 03/06/2024 Within the past 12 months th e food we bought just didn't last and we didn't have money to get more. Never True 03/06/2024 Purpose - Life Answer Date Recorded Purpose [...] [facility] [address] [place] [address] documented as of this encounter Results * Home sleep study (11/07/2024 9:00 PM EST) 11/07/2024 9:00 PM EST Narrative [facility] - 11/23/2024 9:23 AM EST INTERPRETED us Katherine Garcia MD SLEEP CENTER ORDERABLES Fi nal Result SLEE[facility] documented in this encounter Visit Diagnoses Diagnosis MUKESH (obstructive sleep apnea)- Primary Obstructive sleep apnea (adult) (pediatric) MUKESH (obstructive sleep apnea) Obstructive sleep apnea (adult) (pediatric) documented in this encounter Additional Health Concerns Assessment Noted Time PHQ-9 Depression Total Score: 8 02/06/20 24 8:28 AM EDT A Body Mass Index follow-up plan has been documented for the patient 02/06/2024 9:02 AM EDT documented as of this encounter Care Teams Library Circulation Assistant Relationship Specialty Start Date End Date Lizbeth Snyder APRN-SHACKLER [address] [place] [place] [address] PCP - General 12/10/23 documented as of this encounter
--- OUTSIDE RECORDS SUMMARY | 2025-04-17 14:30 | XMS_ITS | Encounter Summary ---
Author Organization [facility] [employer] [facility] Address [facility] [id number] [address] [place] [address] Care Team Providers Care Expert Witness Name Role Phone Lizbeth Snyder APRN-CHRISTINE Primary Care Provid er Encounter Details Date Type Department Care Team (Late st Contact Info) Description 08/13/2024 Telephone [facility] Pulmonary/Sleep Medicine [address] [address] Chitra Downey LPN Social History Tobacco Use Types Packs/Day Years [...] on file documented as of this encounter Miscellaneous Notes * Telephone Encounter - Chitra Downey LPN - 08/13/2024 4:01 PM EST Pt lm on [facility] nurse line stating she needs to do the home sleep study because she has a puppy and she can not leave over night? * Telephone Encounter - Kaya Zamora RN - 08/13/2024 4:01 PM EST KW see below * Telephone Encounter - Katherine Garcia MD - 08/13/2024 4:01 PM EST Ok to cancel PSG and order HST with oral appliance * Telephone Encounter - Kaya Zamora RN - 08/13/2024 4:01 PM EST Order placed, left message for pt documented in this encounter Plan of Treatment Upcoming Encounters Date Type Department Care Team (Late st Contact Info) Description 05/01/2025 9:00 AM EDT Office Visit [facility] [address] [facility] [place] [address] documented as of this encounter Visit Diagnoses Not on filedocumented in this encounter Additional Health Concerns Assessment Noted Time PHQ-9 Depression Total Score: 8 02/06/20 24 8:28 AM EDT A Body Mass Index follow-up plan has been documented for the patient 02/06/2024 9:02 AM EDT documented as of this encounter Care Teams Expert Witness Relationship Specialty Start Date End Date Lizbeth Snyder APRN-NP [address] [facility] [address] PCP - General 12/10/23 documented as of this encounter
--- OUTSIDE RECORDS SUMMARY | 2025-04-17 14:32 | XMS_ITS | Encounter Summary ---
Author Organization [facility] Address [address] [facility] [place] [address] Care Team Providers Care Proposal Specialist Name Role Phone Anna Culver MD Unavailable [phone] Libzeth Snyder NP Primary Care Provider Hoang Ragland MD Unavailable Yamile Lofton Unavailable Encounter Details Date Type Department Care Team (Late Contact Info) Description 04/27/2023 Abstract [facility] [address] [place] [phone] Hoang Sierra, [facility] [address] [place], [place] [phone] Social History Tobacco Use Types Packs/Day Years Used Date Smoking Tobacco: Never Tobacco Cessation:Counseling Given: Not Answered Alcohol Use Standard Drinks/Week Comments Never 0 (1 standard drink = 0.6 oz pure alcohol) Caffeine intake: >4 cups per day pop Comments Unknown Sex and Gender Information Value Date Recorded Sex Assigned at Not on file Legal Sex Female 8:26 PM EDT Gender Identity Not on file Sexual Orientation Not on file COVID-19 Exposure Response Date Recorded In the last 10 days, have yo u been in contact with someone who was confirmed or suspected to have Coronavirus/COVID-19? No / Unsure 04/21/2023 10:31 AM EDT documented as of this encounter Plan of Treatment Upcoming Encounters Date Type Department Care Team (Late Contact Info) Description 05/22/2025 1:30 PM EDT Procedure Visit [facility] [address] [place] [phone] Hoang Sierra, DPVinay [address] [place], [place] [phone] documented as of this encounter Visit Diagnoses Not on filedocumented in this encounter Care Teams Proposal Specialist Relationship Specialty Start Date End Date Lizbeth Snyder HIGH REACH OPERATOR [address] [place], [place] [phone] PCP - General Family Medicine 03/14/24 Anna Culver MD [address] [place] [address] Referring Physician Family Medicine 08/17/23 Hoang Ragland MD [address] [place] [address] Referring Physician Neurology 09/10/24 Yamile Lofton PA [address] [place] [address] Physician Investigator Operator Neurology 09/10/24 documented as of this encounter
--- OUTSIDE RECORDS SUMMARY | 2025-04-17 14:32 | XMS_ITS | Clinical Summary ---
Author Organization [facility] Address [address] [place] [address] Care Team Providers Care Plastic Finisher Name Role Phone Unavailable Primary Care Provider Unavailabl e Social History Tobacco Use Types Packs/Day Years Used Date Smoking Tobacco: Never Assessed Comments Unknown Sex and Gender Information Value Date Recorded Sex Assigned at Not on file Legal Sex Female 12:32 AM EDT Gender Identity Not on file Sexual Orientation Not on file Plan of Treatment Not on file
--- OUTSIDE RECORDS SUMMARY | 2025-04-17 14:33 | XMS_ITS | Clinical Summary ---
Author Organization [employer] Address [facility] [id number] [address] [place] [address] Care Team Providers Care Ict Educator Name Role Phone Lizbeth Snyder Primary Care Provid er Allergies Active Allergy Reactions Criticality Noted Date Comments Loratadine 07/20/2017 Metformin Diarrhea Low 03/06/2024 Methylprednisolone Hives 04/09/2019 Oxycodone 07/22/2021 Medications montelukast (SINGULAIR) 10 mg tablet Take 1 tablet (10 mg total) by mouth nightly. Active EASY TOUCH ALCOHOL PREP PADS pads, medicated 05/27/2020 Active hydrOXYzine (VISTARIL) 25 mg capsule Take 1 capsule (25 mg total) by mouth 3 (three) times a day as needed. 07/21/2021 Active busPIRone (BUSPAR) 15 mg tablet 4 (four) times a day. 07/21/2021 Active sertraline (ZOLOFT) 100 mg tablet Take 1 tablet (100 mg total) by mouth in the morning. 07/21/2021 Active VITAMIN D3 50 mcg (2,000 unit) capsule Take 1 capsule (2,000 Units total) by mouth in the morning. 12/03/2021 Active MYRBETRIQ 50 mg tablet extended release 24 hr Take 1 tablet (50 mg total) by mouth in the morning. 11/13/2021 Active ARIPiprazole (ABILIFY) 10 mg tablet Take 1 tablet (10 mg total) by mouth in the morning. 05/19/2022 Active omeprazole (PriLOSEC) 40 mg capsule Take 1 capsule (40 mg total) by mouth nightly. 11/23/2022 Active lisinopriL (PRINIVIL,ZESTRI L) 2.5 mg tablet 1 tablet Orally Once a day for 30 day(s) Active levothyroxine (SYNTHROID, LEVOTHROID) 50 MCG tablet 1 tablet on an empty stomach in the morning Orally Once a day Active hydroCHLOROthiaz leda (MICROZIDE) 12.5 mg capsule 1 capsule in the morning Orally Once a day for 30 day(s) Active gabapentin (NEURONTIN) 400 mg capsule 1 capsule (400 mg total). Active famotidine (PEPCID) 20 mg tablet 12/09/2022 Active cetirizine (ZyrTEC) 10 mg tablet 1 tablet Orally Once a day for 30 day(s) Active atorvastatin (LIPITOR) 20 mg tablet 12/09/2022 Active JANUVIA 100 mg tablet Take 1 tablet (100 mg total) by mouth in the morning. 09/21/2023 Active traZODone (DESYREL) 50 mg tablet Take 1 tablet (50 mg total) by mouth nightly. Active VENTOLIN HFA 90 mcg/actuation inhalerIndicatio ns:Moderate persistent asthma, unspecified whether complicated INHALE 2 PUFFS BY MOUTH EVERY 4 TO 6 HOURS NEEDED 18 g 10 09/04/2024 Active SYMBICORT 160-4.5 mcg/actuation inhalerIndicatio ns:Moderate persistent asthma, unspecified whether complicated INHALE 2 PUFFS BY MOUTH TWICE DAILY 10.2 g 10 10/04/2024 Active Active Problems Problem Noted Date Diagnosed Date Psychogenic nonepileptic seizure 02/10/2022 Chronic ulcer of right midfoot limited to breakd own of skin 07/29/2021 Generalized anxiety disorder 07/29/2021 Learning disability 07/29/2021 Moderate recurrent major depression 07/29/2021 Obesity, morbid, BMI 50 or higher 05/03/2019 Overview (02/06/2024): Discussed BMI at well woman visit HTN (hypertension) 05/03/2019 Shortness of breath 05/03/2019 Type 2 diabetes mellitus, wi thout long-term current use of insulin 05/03/2019 Encounters Date Type Department Care Team Description 01/25/2025 Telephone [facility] [address] [place] [address] Norma Swan, EFE from Last 3 Months Immunizations Immunization Administration Dates Next Due DTP 11/26/2020 Family History Medical History Relation Name Comments Asthma Father Ramy Julita Francia Emphysema Father Ramy Julita Francia Heart disease Father Ramy Julita Francia Hypertension Father Ramy Julita Francia Diabetes Maternal Aunt January reffle No Known Problems Mother Breast cancer Neg Hx Colon cancer Neg Hx Ovarian cancer Neg Hx Uterine cancer Neg Hx Relation Name Status Comments Father Ramy Julita Francia Maternal Aunt January reffle Maternal Grandfather Maternal Grandmother Mother Alive Paternal Grandfather Paternal Grandmother Social History Tobacco Use Types Packs/Day Years Used Date Smoking Tobacco: Never Smokeless Tobacco: Never Tobacco Cessation:Counseling Given: Not Answered Alcohol Use Standard Drinks/Week Comments No 0 [...] PM EDT Sexual Orientation Not on file Last Filed Vital Signs Vital Sign Reading Time Taken Comments Blood Pressure 86/56 08/13/2024 2:57 PM EST right arm 84/57 xl cuff used Pulse 76 08/13/2024 2:57 PM EST Temperature 36.8 C (98.3 F) 12/13/2021 7:47 AM EDT Respiratory Rate 14 09/13/2022 8:43 AM EST Oxygen Saturation 98% 08/13/2024 2:5 7 PM EST Inhaled Oxygen Concentration - - Weight 121.6 kg (268 lb) 11/07/2024 7:1 3 PM EST Height 149.9 cm (4' 11 ) 11/07/2024 7:1 3 PM EST Body Mass Index 54.13 11/07/2024 7:13 PM EST Plan of Treatment Upcoming Encounters Date Type Department Care Team (Late st Contact Info) Description 05/01/2025 9:00 AM EDT Office Visit [facility] [address] [place] [address] Health Maintenance Due Date Last Done Comments Diabetic Ophthalmology Exam 1985 Diabetic Foot Exam 2003 Pap Smear 06/10/2023 06/10/2020, 05/2020, 06/08/2019, Additional history exists COVID-19 Vaccine (2023-11 5 season) 2024 02/26/2021, 02/05/2021 Adult BMI Follow Up Plan 02/05/2025 02/06/2024 Depression Screening 02/05/2025 02/06/2024 Influenza Vaccine 06/03/2025 07/30/2020, , 07/04/2019, Additional history exists Adult BMI Screening 11/07/2025 11/07/2024 Tobacco Screening 11/07/2025 11/07/2024 DTaP,Tdap and Td Vaccines (2 - Tdap) 11/26/2030 11/26/2020 Medical Devices Implanted Type Area Rope Twisting Machine Operator Device Identifier Shelf Expiration Date Model / Serial / Lot Implant Lead-01/05/2021 Implanted:0 01/2021 (Quantity not on file) Implant Lead Buttocks interstim urinary MGU Lead [id number] / [id number] / Neuro Stimulator-01/05 Implanted:0 01/2021 (Quantity not on file) Neuro Stimulator Buttocks [facility] [facility] interstim II [id number] / [id number] / Description:interstim II sarah dder stimulator Procedures Procedure Name Priority Date/Time Associated Diagnosis Comments HIGH RISK HPV W/AVIVA Routine 06/10/2020 3:23 PM EDT from Last 3 Months or Most Recently Relevant to Health Maintenance Results * High risk HPV w/aviva (06/10/2020 3:23 PM EDT) Hpv specimen type ThinPrep 06/10/2020 3:23 PM EDT [facility] Hpv 16 Negative Negative^N egative 06/11/2020 2:40 PM EDT [facility] Hpv 18 Negative Negative^N egative 06/11/2020 2:40 PM EDT [facility] Other high risk hpv Negative Negative^N egative 06/11/2020 2:40 PM EDT [facility] Comment: HPV types 31,33,35,39,45,52,56,58,59,66 and 68 DNA were undetectable. Serum / Unknown 06/10/2020 3 :23 PM EDT 06/10/2020 3:23 PM EDT Melba Monte APRN-CNM LAB BLOOD ORDERABLES Fin al Result [facility] [address] [facility] [place] [address] from Last 3 Months or Most Recently Relevant to Health Maintenance Insurance [employer] Care Teams Ict Educator Relationship Specialty Start Date End Date Lizbeth Snyder APRN-NP [address] [place] [address] PCP - General 12/10/23
--- OUTSIDE RECORDS SUMMARY | 2025-04-17 14:35 | XMS_ITS | Encounter Summary ---
Author Organization [facility] [employer] Sys [employer] Address [id number] [address] [place] [address] Care Team Providers Care Lock And Dam Repairer Name Role Phone Lizbeth Snyder APRN-CHRISTINE Primary Care Provid er Reason for Visit * Reason Onset Date Comments Schd appt 05/06/2021 Encounter Details Date Type Department Care Team (Late st Contact Info) Description 05/06/2021 Telephone [facility] [address] [place] [phone] [address] [facility] Social History Tobacco Use Types Packs/Day Years Used Date Smoking Tobacco: Never Smokeless Tobacco: Never Alcohol Use Standard Drinks/Week Comments No 0 (1 standard drink = 0.6 oz pur e alcohol) Childcare Answer Date Recorded Childcare Unknown 03/06/2019 Employment Answer Date Recorded Employment Unknown 03/06/2019 Purpose - Life Answer Date Recorded Purpose and direction in life Unknown Comments No Sex and Gender Information Value Date Recorded Sex Assigned at Female 04/08/2023 12:31 PM EDT Legal Sex Female 10:00 AM EST Gender Identity Female 04/30/2019 5:14 PM EDT Sexual Orientation Not on file documented as of this encounter Miscellaneous Notes * Telephone Encounter - Merry Krishna - 05/06/2021 1:38 PM EDT Received Referral 1st attempt, left voicemail Dx: Syncope and Collapse , Family hx of seizures Referred by Anna Culver NP * Telephone Encounter - Eda Lobo - 05/06/2021 1:38 PM EDT Patient scheduled with Dr. Norris in [place] on 06/24 for Dx Syncope and Collapse , Family hx of seizures documented in this encounter Plan of Treatment Upcoming Encounters Date Type Department Care Team (Late st Contact Info) Description 05/01/2025 9:00 AM EDT Office Visit [facility] [address] [place] [address] documented as of this encounter Visit Diagnoses Not on filedocumented in this encounter Care Teams Lock And Dam Repairer Relationship Specialty Start Date End Date Lizbeth Snyder APRN-NP [address] [place] [address] PCP - General 12/10/23 documented as of this encounter
--- OUTSIDE RECORDS SUMMARY | 2025-04-17 14:35 | XMS_ITS | Encounter Summary ---
Author Organization [employer] Sys tem Address [facility] [place]-[id number] [address] [place] [address] Care Team Providers Care Lab Support Service Tech Name Role Phone Lizbeth Snyder APRN-CHRISTINE Primary Care Provid er Reason for Visit * Reason Comments Med Refill Encounter Details Date Type Department Care Team (Late st Contact Info) Description 07/10/2021 Refill [facility] Pul[facility]Sleep [facility] [address] [facility] [address] [place] [address] Katherine Garcia MD [address] [facility] [address] [place] [address] Moderate persistent asthma, unspecified whether complicated (Primary Dx) Social History Tobacco Use Types Packs/Day Years Used Date Smoking Tobacco: Never Smokeless Tobacco: Never Alcohol Use Standard Drinks/Week Comments No 0 (1 standard drink = 0.6 oz pur e alcohol) PHQ-2 Answer Date Recorded Total Score 6 07/10/2021 Childcare Answer Date Recorded Childcare Unknown 03/06/2019 Employment Answer Date Recorded Employment Unknown 03/06/2019 Purpose - Life Answer Date Recorded Purpose and direction in life Unknown Comments No Sex and Gender Information Value Date Recorded Sex Assigned at Female 04/08/2023 12:31 PM EDT Legal Sex Female 10:00 AM EST Gender Identity Female 04/30/2019 5:14 PM EDT Sexual Orientation Not on file COVID-19 Exposure Response Date Recorded In the last month, have you been in contact with someone who was confirmed or suspected to have Coronavirus / COVID-19? No / Unsure 07/10/2021 12:04 PM EDT documented as of this encounter Miscellaneous Notes * Telephone Encounter - Katherine Garcia MD - 07/10/2021 9:10 AM EDT Patient hasn't been seen in > 1 year. Needs follow up with next available. No need to add on if stable. * Telephone Encounter - Rukhsana Winter LPN - 07/10/2021 9:10 AM EDT 01/11/22 at 3:30pm documented in this encounter Plan of Treatment Upcoming Encounters Date Type Department Care Team (Late st Contact Info) Description 05/01/2025 9:00 AM EDT Office Visit [facility] [address] [place] [address] documented as of this encounter Visit Diagnoses Diagnosis Moderate persistent asthma, unspecified whether complicated- Primary documented in this encounter Additional Health Concerns Assessment Noted Time PHQ-9 Depression Total Score: 6 07/10/20 21 12:31 PM EDT documented as of this encounter Care Teams Lab Support Service Tech Relationship Specialty Start Date End Date Lizbeth Snyder APRN-CHRISTINE [address] [place] [address] PCP - General 12/10/23 documented as of this encounter
--- OUTSIDE RECORDS SUMMARY | 2025-04-17 14:36 | XMS_ITS | Encounter Summary ---
Author Organization [employer] Address [facility] [place]-[id number] [address] [place] [address] Care Team Providers Care Recycler Forklift Driver Truck Driver Name Role Phone Lizbeth Snyder APRN-CHRISTINE Primary Care Provid er Reason for Visit * Reason Onset Date Comments Phone Encounter 06/11/2020 Encounter Details Date Type Department Care Team (Late st Contact Info) Description 06/11/2020 Telephone [facility] [address] [place] [address] Melba Monte APRN-STARR [address] [phone] Phone Encounter Social History Tobacco Use Types Packs/Day Years Used Date Smoking Tobacco: Never Smokeless Tobacco: Never Alcohol Use Standard Drinks/Week Comments No 0 (1 standard drink = 0.6 oz pur e alcohol) Childcare Answer Date Recorded Childcare Unknown 03/06/2019 Employment Answer Date Recorded Employment Unknown 03/06/2019 Comments No Sex and Gender Information Value [...] have Coronavirus / COVID-19? No / Unsure 06/10/2020 10:27 AM EDT documented as of this encounter Miscellaneous Notes * Telephone Encounter - Melisa Phan - 06/11/2020 2:06 PM EDT Pt wants all labs done Sunday 06/10 faxed to PCP Anna Culver when complete * Telephone Encounter - Beatrice Cui CPT - 06/11/2020 2:06 PM EDT SENT 06/17/2020 documented in this encounter Plan of Treatment Upcoming Encounters Date Type Department Care Team (Late st Contact Info) Description 05/01/2025 9:00 AM EDT Office Visit [facility] [address] [place] [address] documented as of this encounter Visit Diagnoses Not on filedocumented in this encounter Care Teams Recycler Forklift Driver Truck Driver Relationship Specialty Start Date End Date Lizbeth Snyder APRN-PRODUCT SUPPORT ANALYST [address] [place] [address] PCP - General 12/10/23 documented as of this encounter
--- OUTSIDE RECORDS SUMMARY | 2025-04-17 14:37 | XMS_ITS | Encounter Summary ---
Author Organization [facility] [employer] Address [facility] [place][id number] [address] [place] [address] Care Team Providers Care Three Dimensional Art Instructor Name Role Phone Lizbeth Snyder Primary Care Provid er Encounter Details Date Type Department Care Team (Late st Contact Info) Description 12/11/2021 Orders Only [facility] Neu[facility] [address] [place] [phone] Barb Lopez, DANDRE-LAMPS TESTER AND INSPECTOR [address], [address] [place] [address] Social History Tobacco Use Types Packs/Day Years [...] suspected to have Coronavirus/COVID-19? No / Unsure 12/09/2021 8:36 AM EST documented as of this encounter Plan of Treatment Upcoming Encounters Date Type Department Care Team (Late st Contact Info) Description 05/01/2025 9:00 AM EDT Office Visit [facility] [address] [place] [address] documented as of this encounter Visit Diagnoses Not on filedocumented in this encounter Additional Health Concerns Assessment Noted Time PHQ-9 Depression Total Score: 3 09/11/20 21 1:26 PM EST A Body Mass Index follow-up plan has been documented for the patient 07/29/2021 10:09 AM EDT documented as of this encounter Care Teams Three Dimensional Art Instructor Relationship Specialty Start Date End Date Lizbeth Snyder APRN-CHRISTINE [address] [place] [place] [address] PCP - General 12/10/23 documented as of this encounter
--- OUTSIDE RECORDS SUMMARY | 2025-04-17 14:38 | XMS_ITS | Encounter Summary ---
Author Organization [employer] Sys tem Address [facility] [place][id number] [address] [place] [address] Care Team Providers Care Commercial Real Estate Attorney Name Role Phone Lizbeth Snyder APRN-CHRISTINE Primary Care Provid er Encounter Details Date Type Department Care Team (Late st Contact Info) Description 09/11/2021 [facility] [address] [place] [phone] Sean Claire, DO [address] [facility] [place] [address] Social History Tobacco Use Types Packs/Day Years [...] have Coronavirus / COVID-19? No / Unsure 09/11/2021 1:12 PM EST documented as of this encounter Miscellaneous Notes * Telephone Encounter - Alejandrina Hernandez - 09/11/2021 4:14 PM EST HARPOON ENGAGEMENT PLANNING OPERATOR referral received for your office. Pt is not new. Last saw [facility] 07/2019. Please call patient to schedule follow-up appointment. Thanks! * Telephone Encounter - Jaleesa Lara - 09/11/2021 4:14 PM EST LMOM for the patient to call and schedule their next appointment with PPC. documented in this encounter Plan of Treatment Upcoming Encounters Date Type Department Care Team (Late st Contact Info) Description 05/01/2025 9:00 AM EDT Office Visit [facility] [address] [place] [address] documented as of this encounter Visit Diagnoses Not on filedocumented in this encounter Additional Health Concerns Assessment Noted Time PHQ-9 Depression Total Score: 3 09/11/20 21 1:26 PM EST A Body Mass Index follow-up plan has been documented for the patient 07/29/2021 10:09 AM EDT documented as of this encounter Care Teams Commercial Real Estate Attorney Relationship Specialty Start Date End Date Lizbeth Snyder APRN-CHRISTINE [address] [place] [address] PCP - General 12/10/23 documented as of this encounter
--- OUTSIDE RECORDS SUMMARY | 2025-04-17 14:38 | XMS_ITS | Encounter Summary ---
Author Organization [employer] Sys [employer] Address [facility] [place][id number] [address] [place] [address] Care Team Providers Care Lock Operator Name Role Phone Lizbeth Snyder APRN-CHRISTINE Primary Care Provid er Encounter Details Date Type Department Care Team (Late st Contact Info) Description 08/24/2021 Telephone [facility] Neurology [address] [place] [address] Merry Krishna Social History Tobacco Use Types Packs/Day Years [...] have Coronavirus / COVID-19? No / Unsure 07/29/2021 9:02 AM EDT documented as of this encounter Miscellaneous Notes * Telephone Encounter - Merry Krishna - 08/24/2021 10:16 AM EST Patient was recently seen by Alee Lopez CNP on 07-22-21 as a new patient. Per patient, she was told if EEG or MRI came back normal, provider would be admitting her into hospital . Patient is due tofollow up with Alee Lopez On 09-11-21. Patient is wondering if she should pack a bag prior to appointment or if someone can discuss results with her. Please advise. Patient's callback number [phone] * Telephone Encounter - TARIK Garcia - 08/24/2021 10:16 AM EST Spoke with patient and clarified that she does not need further testing. Will follow up at her nextappointment. documented in this encounter Plan of Treatment Upcoming Encounters Date Type Department Care Team (Late st Contact Info) Description 05/01/2025 9:00 AM EDT Office Visit [facility] [place] [address] [place] [address] documented as of this encounter Visit Diagnoses Not on filedocumented in this encounter Additional Health Concerns Assessment Noted Time PHQ-9 Depression Total Score: 6 07/10/20 12:31 PM EDT A Body Mass Index follow-up plan has been documented for the patient 07/29/2021 10:09 AM EDT documented as of this encounter Care Teams Lock Operator Relationship Specialty Start Date End Date Lizbeth Snyder APRN-NP [address] [place] [address] PCP - General 12/10/23 documented as of this encounter
--- OUTSIDE RECORDS SUMMARY | 2025-04-17 14:39 | XMS_ITS | Encounter Summary ---
Author Organization [employer] Sys [employer] Address [facility] [id number] [address] [place] [address] Care Team Providers Care Machine Set Up Name Role Phone Lizbeth Snyder APRN-CHRISTINE Primary Care Provid er Encounter Details Date Type Department Care Team (Late st Contact Info) Description 03/08/2022 Telephone [facility] Neurology [address] [place] [address] Arabella Fischer, EUGENE Social History Tobacco Use Types Packs/Day Years [...] suspected to have Coronavirus/COVID-19? No / Unsure 02/10/2022 2:38 PM EDT documented as of this encounter Miscellaneous Notes * Telephone Encounter - Arabella Fischer RN - 03/08/2022 1:43 PM EDT Received medical records request from [facility]. Patient has seen both Alee Lopez CNP and Dr. Norris. [facility]armela JONES. documented in this encounter Plan of Treatment Upcoming Encounters Date Type Department Care Team (Late st Contact Info) Description 05/01/2025 9:00 AM EDT Office Visit [facility] [address] [place] [address] documented as of this encounter Visit Diagnoses Not on filedocumented in this encounter Additional Health Concerns Assessment Noted Time PHQ-9 Depression Total Score: 3 09/11/20 21 1:26 PM EST A Body Mass Index follow-up plan has been documented for the patient 02/10/2022 5:41 PM EDT documented as of this encounter Care Teams Machine Set Up Relationship Specialty Start Date End Date Lizbeth Snyder APRN-NP [address] [place] [address] PCP - General 12/10/23 documented as of this encounter
--- OUTSIDE RECORDS SUMMARY | 2025-04-17 14:39 | XMS_ITS | Encounter Summary ---
Author Organization [employer] Sys tem Address [facility] [place][id number] [address] [place] [address] Care Team Providers Care Senior Coldfusion Developer Name Role Phone Lizbeth Snyder APRN-CHRISTINE Primary Care Provid er Encounter Details Date Type Department Care Team (Late st Contact Info) Description 06/24/2022 [facility] [address] [place] [phone] Rukhsana Winter LPN Social History Tobacco Use Types Packs/Day [...] have Coronavirus / COVID-19? No / Unsure 05/31/2022 1:28 PM EDT documented as of this encounter Miscellaneous Notes * Telephone Encounter - Rukhsana Winter LPN - 06/24/2022 8:52 AM EDT Images from the original note were not included. Pt is c/o dry throat and wants to know if you can turn her pressure down. I told pt to adjust her humidification. Its currently set on 3 and she is going to increase it to see if that helps. * Telephone Encounter - Katherine Garcia MD - 06/24/2022 8:52 AM EDT If this does not help, can drop min EPAP to 8 documented in this encounter Plan of Treatment Upcoming Encounters Date Type Department Care Team (Late st Contact Info) Description 05/01/2025 9:00 AM EDT Office Visit [facility] [address] [place] [address] documented as of this encounter Visit Diagnoses Not on filedocumented in this encounter Additional Health Concerns Assessment Noted Time PHQ-9 Depression Total Score: 3 09/11/20 21 1:26 PM EST A Body Mass Index follow-up plan has been documented for the patient 02/10/2022 5:41 PM EDT documented as of this encounter Care Teams Senior Coldfusion Developer Relationship Specialty Start Date End Date Lizbeth Snyder APRN-NP [address] [place] [address] PCP - General 12/10/23 documented as of this encounter
--- OUTSIDE RECORDS SUMMARY | 2025-04-17 14:39 | XMS_ITS | Encounter Summary ---
Author Organization [employer] Address [facility] [place] [place]-[id number] [address] [place] [address] Care Team Providers Care Forensic Document Examiner Name Role Phone Lizbeth Snyder APRN-CHRISTINE Primary Care Provid er Reason for Visit * Reason Comments Med Refill Encounter Details Date Type Department Care Team (Late st Contact Info) Description 06/22/2022 Refill [facility] [address] [facility] [address] [place] [address] Katherine Garcia MD [address] [facility] [address] [place] [address] Moderate persistent asthma, unspecified whether [...] PM EDT documented as of this encounter Plan of Treatment Upcoming Encounters Date Type Department Care Team (Late st Contact Info) Description 05/01/2025 9:00 AM EDT Office Visit [facility] [address] [place] [address] documented as of this encounter Visit Diagnoses Diagnosis Moderate persistent asthma, unspecified whether complicated documented in this encounter Additional Health Concerns Assessment Noted Time PHQ-9 Depression Total Score: 3 09/11/20 21 1:26 PM EST A Body Mass Index follow-up plan has been documented for the patient 02/10/2022 5:41 PM EDT documented as of this encounter Care Teams Forensic Document Examiner Relationship Specialty Start Date End Date Lizbeth Snyder APRN-CHRISTINE [address] [place] [address] PCP - General 12/10/23 documented as of this encounter
--- OUTSIDE RECORDS SUMMARY | 2025-04-17 14:40 | XMS_ITS | Encounter Summary ---
Author Organization [employer] Address [facility] [place][id number] [address] [place] [address] Care Team Providers Care Customer Service Leader Name Role Phone Lizbeth Snyder APRN-CHRISTINE Primary Care Provid er Encounter Details Date Type Department Care Team (Late st Contact Info) Description 12/14/2021 Telephone [facility] Neurology [address] [place] [address] Eda Lobo Social History Tobacco Use Types Packs/Day Years [...] AM EST documented as of this encounter Miscellaneous Notes * Telephone Encounter - Eda Lobo - 12/14/2021 11:42 AM EDT Patient called and asked if she could switch providers and see Dr. Norris in [place] because it is much closer to her. * Telephone Encounter - Marion Chatterjee - 12/14/2021 11:42 AM EDT Yes patient can switch providers but cannot go back and forth. She will be a patient of Dr. Norris. What is the diagnosis? * Telephone Encounter - Eda Lobo - 12/14/2021 11:42 AM EDT Okay I explained that to her when we spoke. Dx episode of loss of consciousness * Telephone Encounter - Casi Portillo - 12/14/2021 11:42 AM EDT Patient is scheduled on 02/[address] Norris in [place] documented in this encounter Plan of Treatment Upcoming Encounters Date Type Department Care Team (Late st Contact Info) Description 05/01/2025 9:00 AM EDT [facility] [place] [address] [place] [address] documented as of this encounter Visit Diagnoses Not on filedocumented in this encounter Additional Health Concerns Assessment Noted Time PHQ-9 Depression Total Score: 3 09/11/20 21 1:26 PM EST A Body Mass Index follow-up plan has been documented for the patient 07/29/2021 10:09 AM EDT documented as of this encounter Care Teams Customer Service Leader Relationship Specialty Start Date End Date Lizbeth Snyder APRN-NP [address] [place] [address] PCP - General 12/10/23 documented as of this encounter
[2025-04-17 14:43] LABS: Alanine Aminotransferase 25 U/L (14-59); Albumin Globulin Ratio 0.9; Albumin Level 3.4 g/dL (3.4-5.0); Alkaline Phosphatase 76 U/L (46-116); Anion Gap 11.6; Aspartate Amino Transferase 15 U/L (15-37); Blood Urea Nitrogen 13.0 mg/dL (7.0-18.0); Calcium 9.0 mg/dL (8.5-10.1); Carbon Dioxide 29.7 mmol/L (21.0-32.0); Chloride 102 mmol/L (98-107); Cholesterol 165 mg/dL (<=200); Estimated GFR (African America >60 (>=60 mL/min/1.73m^2); Estimated GFR (Non-African Ame >60 (>=60 mL/min/1.73m^2); Globulin 3.9 g/dL; Glucose 89 mg/dL (74-106); HDL Cholesterol 43 mg/dL (40-60); Potassium 4.3 mmol/L (3.5-5.1); Sodium 139 mmol/L (136-145); TSH W/ REFLEX FT4 4.615 uIU/mL (0.358-3.740); Total Protein 7.3 g/dL (6.4-8.2); Triglycerides 125 mg/dL (<=150); VLDL CHOLESTEROL 25.0 mg/dL
--- OUTSIDE RECORDS SUMMARY | 2025-04-17 15:07 | XMS_ITS | CCD ---
Author Name Ursula Palafox NP y Address [address] [place] [address] Phone Organization [facility] Phone Care Team Providers Care Nurse First Aid Name Role Phone Unavailable Primary Care Provider Unavailabl e Unavailable Chronic Care Management Unavaila ble Summary Purpose DataExchange Insurance Providers Payer name Policy type / Coverage type Covered alliance party ID Effective Begin Date Effective End Date SUKI MAYO [id number] Unknown Unknown Family history Mother Diagnosis Age [...] Unknown Disability 05/31/[address]: 637396073 Has never s moked or chewed tobacco 05/31/[address]: 251037619 Never drinks alco hol 05/31/2018 Has the patient ever used illegal drugs? Unknown Has never used illegal drugs 05/31/2018 DNR Order/ Advanced Directive Unknown Full Code 05/31/2018 Allergies, Adverse Reactions, Alerts Substance Reaction Codes Entered Date Inactivated Date Status OxyContin itch, RxNorm: 892693 01/13/2021 No Inactive Da te Active *No [...] mood ICD-10: F43.23 ICD-9: 309.28 09/05/2018 Active Edema, unspecified ICD-10: R60.9 ICD-9: [...] [facility] therapy ICD-10: Z79.899 ICD-9: V58.69 04/25/2019 Inactive Type 2 diabetes mellitus wit hout complications ICD-10: E11.9 ICD-9: 250.00 10/03/2018 Inactive Wheezing ICD-10: R06.2 ICD-9: 786.07 08/08/2018 Inactive Abnormal urine finding ICD-10: R82.90 ICD-9: 791.9 09/24/2020 Resolved Abrasion of toe ICD-10: S90.416A ICD-9: 917.0 02/14/2020 Resolved [facility] ICD-10: H10.029 ICD-9: 372.03 12/29/2019 [...] Fill Instructions montelukast 10 mg tablet RxNorm: 843683 Take 1 Tablet(s) Oral every day 024 2023 Inactive gabapentin 300 mg capsule RxNorm: 642910 Take 1 Capsule(s) Oral three times a day 024 2023 Inactive hydrocortisone 2.5 % topical cream RxNorm: 503376 Apply Application Topical two times a day a thin layer to the affected area(s) 024 No Stop Date Active amoxicillin 500 mg tablet RxNorm: 977066 Take 1 Tablet(s) Oral two times a day 024 2023 Inactive omeprazole 40 mg capsule,delayed release RxNorm: 817015 Take 1 Capsule(s) Oral HS 024 2023 Inactive Januvia 100 mg tablet RxNorm: 214922 Take 1 Tablet(s) Oral every day 023 2023 Inactive amoxicillin 250 mg capsule RxNorm: 123325 Take 1 Capsule(s) Oral three times a day 023 2022 Inactive amoxicillin 500 mg tablet RxNorm: 755023 Take 1 Tablet(s) Oral three times a day 023 2022 Inactive Ozempic 1 mg/dose (4 mg/3 mL) subcutaneous pen injector RxNorm: 7672477 INJECT 1 UNITS DOSE SUBCUTANEOUSLY ON TUESDAY OF EACH WEEK 023 2023 Inactive MED IS ON B/O omeprazole 40 mg capsule,delayed release RxNorm: 674101 Take 1 Capsule(s) Oral 023 2022 Inactive Januvia 50 mg tablet RxNorm: 265289 Take 1 Tablet(s) Oral two times a day 023 2023 Inactive famotidine 20 mg tablet RxNorm: 383345 TAKE 1 TABLET BY MOUTH EACH MORNING 023 2023 Inactive Januvia 25 mg tablet RxNorm: 517556 Take 1 Tablet(s) Oral every day 023 2022 Inactive Ozempic 1 mg/dose (4 mg/3 mL) subcutaneous pen injector RxNorm: 6361521 INJECT 1 UNITS DOSE SUBCUTANEOUSLY ON TUESDAY OF EACH WEEK 023 2022 Inactive cetirizine 10 mg tablet RxNorm: 5383019 TAKE (1) TABLET BY MOUTH DAILY 023 2023 Inactive amoxicillin 500 mg tablet RxNorm: 480403 Take 1 Tablet(s) Oral two times a day 023 2022 Inactive omeprazole 40 mg capsule,delayed release RxNorm: 20021111 Take 1 Capsule(s) Oral at bed time 023 2022 Inactive Easy Touch Alcohol Prep Pads RxNorm: 041138 USE EACH MORNING 023 2024 Inactive montelukast 10 mg tablet RxNorm: 984338 Take 1 Tablet(s) Oral every day 023 2022 Inactive gabapentin 300 mg capsule RxNorm: 632430 Take 1 Capsule(s) Oral three times a day 023 2022 Inactive metformin ER 500 mg 24 hr tablet,extended release RxNorm: 8276675 Take 1 Tablet(s) Oral every day with the evening meal 023 2022 Inactive famotidine 20 mg tablet RxNorm: 619374 Take 1 Tablet(s) Oral every morning 023 2022 Inactive levothyroxine 50 mcg tablet RxNorm: 279488 Take 1 Tablet(s) Oral every day 023 2023 Inactive Msg From [facility]: Approval Requested hydrochlorothiazide 25 mg tablet RxNorm: 987830 Take 1 Tablet(s) Oral every day 023 2023 Inactive Msg From [facility]: Approval Requested atorvastatin 20 mg tablet RxNorm: 250929 Take 1 Tablet(s) Oral every night at bedtime 023 2023 Inactive Macrobid 100 mg capsule RxNorm: 065409 1 Capsule(s) Oral every 12 hours with food 023 2022 Inactive omeprazole 40 mg capsule,delayed release RxNorm: 20021111 Take 1 Capsule(s) Oral every night at bedtime 023 2022 Inactive trazodone 50 mg tablet RxNorm: 039702 Administer 1 Tablet(s) Oral every night at bedtime 023 No Stop Date Active cholecalciferol (vitamin D3) 50 mcg (2,000 unit) tablet RxNorm: 583165 Take 1 Tablet(s) Oral every day 023 2023 Inactive Ozempic 1 mg/dose (4 mg/3 mL) subcutaneous pen injector RxNorm: 3870664 USE 1 UNIT DOSE SUBCUTANEOUSLY ON TUE OF EACH WEEK 023 2022 Inactive lisinopril 2.5 mg tablet RxNorm: 716694 Take 1 Tablet(s) Oral every day 023 2022 Inactive Msg From [facility]: Dr. Zapata Requested Ozempic 1 mg/dose (4 mg/3 mL) subcutaneous pen injector RxNorm: 4662633 USE 1 UNIT DOSE SUBCUTANEOUSLY ON TUE OF EACH WEEK 023 2022 Inactive omeprazole 40 mg capsule,delayed release RxNorm: 640637 Take 1 Capsule(s) Oral every night at bedtime 023 2022 Inactive gabapentin 300 mg capsule RxNorm: 208780 Take 1 Capsule(s) Oral three times a day 023 2022 Inactive montelukast 10 mg tablet RxNorm: 224056 Take 1 Tablet(s) Oral every day 023 2022 Inactive omeprazole 20 mg capsule,delayed release RxNorm: 674680 Take 1 Capsule(s) Oral every evening 022 2022 Inactive Alcohol Prep Pads RxNorm: 829828 USE EACH MORNING 022 2021 Inactive E11.42 clotrimazole 1 % topical cream RxNorm: 863753 Apply 1 Application Topical two times a day as needed apply to affected area(s) twice daily until healed 022 2021 Inactive Victoza 2-Sebastián 0.6 mg/0.1 mL (18 mg/3 mL) subcutaneous pen injector RxNorm: 108070 Inject 0.6-1.8 Milligram(s) Subcutaneous once a week Inject 0.6mg/0.1ml week one, 1.2mg/0.2ml week two, 1.8/0.3ml weekly thereafter 022 2021 Inactive ibuprofen 800 mg tablet RxNorm: 073054 Take 1 Tablet(s) Oral Q8H as needed for pain take with food No Stop Date Active Ozempic 1 mg/dose (4 mg/3 mL) subcutaneous pen injector RxNorm: 0497911 Take 1 Unit Dose Subcutaneous QWeek Tuesday 022 2021 Inactive lisinopril 2.5 mg tablet RxNorm: 444260 Take 1 Tablet(s) Oral every day 2021 Inactive lisinopril 2.5 mg tablet RxNorm: 745461 Take 1 Tablet(s) Oral every day 2022 Inactive hydrochlorothiazide 25 mg tablet RxNorm: 482468 Take 1 Tablet(s) Oral every day 022 2021 Inactive Ozempic 1 mg/dose (4 mg/3 mL) subcutaneous pen injector RxNorm: 8265284 Take 1 Unit Dose Subcutaneous QWeek 2021 Inactive famotidine 20 mg tablet RxNorm: 017412 Take 1 Tablet(s) Oral every morning 2021 Inactive levothyroxine 50 mcg tablet RxNorm: 685469 Take 1 Tablet(s) Oral every day 2021 Inactive atorvastatin 20 mg tablet RxNorm: 919641 Take 1 Tablet(s) Oral every night at bedtime 2021 Inactive Cleocin T 1 % lotion RxNorm: 159352 Take 2 Gram(s) Topical every day 022 2021 Inactive Cleocin T 1 % lotion RxNorm: 501764 Take 2 Gram(s) Topical every day 022 2021 Inactive Ozempic 1 mg/dose (4 mg/3 mL) subcutaneous pen injector RxNorm: 6777997 Take 1 Unit Dose Subcutaneous QWeek 022 2021 Inactive Ozempic 0.25 mg or 0.5 mg (2 mg/1.5 mL) subcutaneous pen injector RxNorm: 8933697 INJECT 0.5 MGS SUBCUTANEOUSLY EVERY WEEK 2021 Inactive omeprazole 20 mg capsule,delayed release RxNorm: 272149 Take 1 Capsule(s) Oral every evening 022 2021 Inactive levothyroxine 50 mcg tablet RxNorm: 248776 Take 1 Tablet(s) Oral every day 2021 Inactive atorvastatin 20 mg tablet RxNorm: 852567 Take 1 Tablet(s) Oral every night at bedtime 2021 Inactive This refill negates all other refills of this medication lisinopril 2.5 mg tablet RxNorm: 027067 Take 1 Tablet(s) Oral every day 022 2021 Inactive gabapentin 300 mg capsule RxNorm: 334223 Take 1 Capsule(s) Oral three times a day 2021 Inactive montelukast 10 mg tablet RxNorm: 155333 Take 1 Tablet(s) Oral every day 022 2021 Inactive Myrbetriq 50 mg tablet,extended release RxNorm: 7058501 1 Tablet(s) Oral every day No Stop Date Active cholecalciferol (vitamin D3) 50 mcg (2,000 unit) tablet RxNorm: 447254 Take 1 Tablet(s) Oral every day 022 2022 Inactive Ozempic 0.25 mg or 0.5 mg (2 mg/1.5 mL) subcutaneous pen injector RxNorm: 1831493 inject 0.5 milligrams subcutaneously every week 022 2021 Inactive Ozempic 0.25 mg or 0.5 mg (2 mg/1.5 mL) subcutaneous pen injector RxNorm: 3841150 Take 0.5 Capsule(s) Injection once a week 2021 Inactive omeprazole 20 mg capsule,delayed release RxNorm: 512146 Take 1 Capsule(s) Oral every evening 2020 Inactive Ozempic 0.25 mg or 0.5 mg (2 mg/1.5 mL) subcutaneous pen injector RxNorm: 9084363 Take 0.25 Milligram(s) Subcutaneous once a week 2021 Inactive Easy Touch Alcohol Prep Pads RxNorm: 215162 USE DIRECTED EACH MORNING 2021 Inactive Probiotic 10 billion cell capsule RxNorm: 0113535 Take 1 Capsule(s) Oral every day 2021 Inactive levothyroxine 50 mcg tablet RxNorm: 571596 Take 1 Tablet(s) Oral every day 2020 Inactive Acid Port Cdl A Driver (famotidine) 20 mg tablet RxNorm: 053933 Take 1 Tablet(s) Oral every morning 2020 Inactive Heartburn Relief (famotidine) 10 mg tablet RxNorm: 329470 Take 1 Tablet(s) Oral QAM 2020 Inactive levothyroxine 50 mcg tablet RxNorm: 776199 Take 1 Tablet(s) Oral QD 2020 Inactive Singulair 10 mg tablet RxNorm: 961376 TAKE (1) TABLET BY MOUTH DAILY 2020 Inactive metformin 1,000 mg tablet RxNorm: 795105 1 Tablet(s) Oral two times a day 2021 Inactive lisinopril 2.5 mg tablet RxNorm: 578554 Take 1 Tablet(s) Oral every day 2020 Inactive hydrochlorothiazide 25 mg tablet RxNorm: 746133 Take 1 Tablet(s) Oral every day 021 2020 Inactive ondansetron 4 mg disintegrating tablet RxNorm: 337660 1 Tablet(s) Oral two times a day 2020 Inactive Sudafed 12 Hour 120 mg tablet,extended release RxNorm: 3704867 TAKE 1 TABLET BY MOUTH EVERY 12 HOURS NEEDED 021 2021 Inactive Heartburn Relief (famotidine) 10 mg tablet RxNorm: 000494 Take 1 Tablet(s) Oral every morning 021 2020 Inactive omeprazole 20 mg capsule,delayed release RxNorm: 944466 1 Capsule(s) Oral every evening 021 2020 Inactive sertraline 100 mg tablet RxNorm: 067191 2 Tablet(s) Oral every day 021 2020 Inactive levothyroxine 50 mcg tablet RxNorm: 008344 TAKE (1) TABLET BY MOUTH DAILY 021 2020 Inactive metformin 500 mg tablet RxNorm: 488482 1 Tablet(s) Oral two times a day take with 500mg to equal 1000mg 021 2020 Inactive gabapentin 300 mg capsule RxNorm: 247268 TAKE 1 CAPSULE BY MOUTH THREE TIMES A DAY 021 2020 Inactive lisinopril 2.5 mg tablet RxNorm: 520518 TAKE 1 TABLET BY MOUTH DAILY 021 2020 Inactive gabapentin 300 mg capsule RxNorm: 126961 TAKE 1 CAPSULE BY MOUTH THREE TIMES A DAY 021 2020 Inactive Singulair 10 mg tablet RxNorm: 592819 TAKE (1) TABLET BY MOUTH DAILY 021 2020 Inactive metformin 1,000 mg tablet RxNorm: 543447 1 Tablet(s) Oral two times a day 021 2020 Inactive atorvastatin 40 mg tablet RxNorm: 532991 1 Tablet(s) Oral every day 021 2020 Inactive omeprazole 20 mg capsule,delayed release RxNorm: 280459 1 Capsule(s) Oral every evening 021 2020 Inactive famotidine 10 mg tablet RxNorm: 251489 1 Tablet(s) Oral every morning 021 2020 Inactive Alcohol Prep Pads RxNorm: 743391 USE EACH MORNING 021 2020 Inactive omeprazole 20 mg capsule,delayed release RxNorm: 447498 1 Capsule(s) Oral two times a day 2021 Inactive omeprazole 20 mg capsule,delayed release RxNorm: 107505 TAKE 1 CAPSULE BY MOUTH EVERY DAY 2021 Inactive Macrobid 100 mg capsule RxNorm: 938386 1 Capsule(s) Oral every 12 hours with food 2020 Inactive omeprazole 20 mg capsule,delayed release RxNorm: 168464 1 Capsule(s) Oral two times a day 2021 Inactive metformin 1,000 mg tablet RxNorm: 109267 1 Tablet(s) Oral two times a day 2020 Inactive start on September 11, 2020 metformin 500 mg tablet RxNorm: 037598 1 Tablet(s) Oral two times a day take with 500mg to equal 1000mg 2019 Inactive gabapentin 300 mg capsule RxNorm: 053143 TAKE 1 CAPSULE BY MOUTH THREE TIMES DAILY 2020 Inactive cetirizine 10 mg tablet RxNorm: 9114736 TAKE (1) TABLET BY MOUTH DAILY 2020 Inactive metformin 500 mg tablet RxNorm: 275908 1 Tablet(s) Oral two times a day 2019 Inactive loperamide 2 mg tablet RxNorm: 147554 1 Tablet(s) Oral as needed take one tablet after each loose stool, maximum of 8 tablets in 24 hours 2021 Inactive Sudafed 12 Hour 120 mg tablet,extended release RxNorm: 4615167 TAKE 1 TABLET BY MOUTH EVERY 12 HOURS NEEDED 020 2019 Inactive hydrochlorothiazide 25 mg tablet RxNorm: 828258 TAKE (1) TABLET BY MOUTH EVERY DAY 2019 Inactive omeprazole 20 mg capsule,delayed release RxNorm: 675082 TAKE 1 CAPSULE BY MOUTH EVERY DAY 10/07/ 2021 Inactive metformin 500 mg tablet RxNorm: 336979 1 Tablet(s) Oral every day 2019 Inactive True Metrix Glucose Test Strip RxNorm: 1 Test Strips Miscellaneous two times a day as needed No Stop Date Active metformin 500 mg tablet RxNorm: 847015 1 Tablet(s) Oral every day 2019 Inactive diclofenac sodium 75 mg tablet,delayed release RxNorm: 626941 1 Tablet(s) PO BID 2021 Inactive This refill negates all other refills of this medication Sudafed 12 Hour 120 mg tablet,extended release RxNorm: 6908382 TAKE 1 TABLET BY MOUTH EVERY 12 HOURS NEEDED 020 2019 Inactive True Metrix Glucose Test Strip RxNorm: 1 Test Strips Miscellaneous every morning 020 2019 Inactive 100/container True Metrix Glucose Test Strip RxNorm: 1 Test Strips Miscellaneous QAM 020 2019 Inactive 100/container loperamide 2 mg tablet RxNorm: 453279 1 Tablet(s) Oral as needed take one tablet after each loose stool, maximum of 8 tablets in 24 hours 020 2019 Inactive cetirizine 10 mg tablet RxNorm: 4402123 1 Tablet(s) PO daily 2019 Inactive loperamide 2 mg tablet RxNorm: 838642 1 Tablet(s) Oral as needed take one tablet after each loose stool, maximum of 8 tablets in 24 hours 020 2019 Inactive quetiapine 100 mg tablet RxNorm: 903808 1 Tablet(s) Oral every night at bedtime 020 2019 Inactive levothyroxine 50 mcg tablet RxNorm: 247369 1 Tablet(s) PO daily 020 2020 Inactive gabapentin 300 mg capsule RxNorm: 076095 1 Capsule(s) PO TID 020 2019 Inactive levothyroxine 50 mcg tablet RxNorm: 510676 1 Tablet(s) PO daily 020 2019 Inactive lisinopril 2.5 mg tablet RxNorm: 178903 1 Tablet(s) PO daily 2020 Inactive gabapentin 300 mg capsule RxNorm: 329276 1 Capsule(s) PO TID 2019 Inactive cetirizine 10 mg tablet RxNorm: 8386354 1 Tablet(s) PO daily 2019 Inactive Singulair 10 mg tablet RxNorm: 143164 1 Tablet(s) PO daily 2020 Inactive gentamicin 0.3 % eye drops RxNorm: 954442 1 Drop(s) ophthalmic (eye) four times a day 2019 Inactive gentamicin 0.3 % eye drops RxNorm: 272055 1 Drop(s) ophthalmic (eye) four times a day 2019 Inactive gentamicin 0.3 % eye drops RxNorm: 154581 1 Drop(s) ophthalmic (eye) four times a day 2019 Inactive hydrochlorothiazide 25 mg tablet RxNorm: 490768 1 Tablet(s) Oral every day 2019 Inactive Sudafed 12 Hour 120 mg tablet,extended release RxNorm: 8919614 TAKE (1) TABLET BY MOUTH EVERY 12 HOURS NEEDED 2019 Inactive loperamide 2 mg tablet RxNorm: 649328 1 Tablet(s) Oral as needed take one tablet after each loose stool, maximum of 8 tablets in 24 hours 2019 Inactive loperamide 2 mg tablet RxNorm: 080067 1 Tablet(s) Oral as needed take one tablet after each loose stool, maximum of 8 tablets in 24 hours 020 2019 Inactive atorvastatin 40 mg tablet RxNorm: 226104 1 Tablet(s) Oral every day 2020 Inactive quetiapine 100 mg tablet RxNorm: 846656 1 Tablet(s) Oral every night at bedtime 2019 Inactive sertraline 100 mg tablet RxNorm: 870446 1 Tablet(s) Oral 2019 Inactive omeprazole 20 mg capsule,delayed release RxNorm: 189600 1 Capsule(s) Oral every day 020 2019 Inactive amoxicillin 250 mg capsule RxNorm: 471341 1 Capsule(s) Oral three times a day 2019 Inactive multivitamin with iron-mineral tablet RxNorm: 1 Tablet(s) Oral every day 020 2021 Inactive cetirizine 10 mg tablet RxNorm: 7086866 1 Tablet(s) PO daily 2019 Inactive This refill negates all other refills of this medication. Please do not auto refill Singulair 10 mg tablet RxNorm: 902774 1 Tablet(s) PO daily 2019 Inactive This refill negates all other refills of this medication gabapentin 300 mg capsule RxNorm: 610840 1 Capsule(s) PO TID 2019 Inactive lisinopril 2.5 mg tablet RxNorm: 409921 1 Tablet(s) PO daily 2019 Inactive levothyroxine 50 mcg tablet RxNorm: 850278 1 Tablet(s) PO daily 2019 Inactive This refill negates all other refills of this medication hydrochlorothiazide 25 mg tablet RxNorm: 956823 1 Tablet(s) Oral every day 2019 Inactive fenugreek seed extract 500 mg capsule RxNorm: 1 Capsule(s) Oral three times a day 2021 Inactive Alcohol Prep Pads RxNorm: 979430 1 Patch TOP QAM 020 2020 Inactive loperamide 2 mg tablet RxNorm: 772842 1 Tablet(s) Oral as needed take one [...] 2019 Inactive hydrochlorothiazide 25 mg tablet RxNorm: 275675 1 Tablet(s) Oral every day 2019 Inactive Sudafed 12 Hour 120 mg tablet,extended release RxNorm: 3390430 1 Tablet(s) Oral every 12 hours as needed 2018 Inactive omeprazole 20 mg capsule,delayed release RxNorm: 222849 1 Capsule(s) Oral every day 2019 Inactive Sudafed 12 Hour 120 mg tablet,extended release RxNorm: 4483298 1 Tablet(s) Oral every 12 hours as needed 2018 Inactive pantoprazole 40 mg tablet,delayed release RxNorm: 558303 1 Tablet(s) Oral every day 2018 Inactive discontinue any other H2Blkr. and PPI albuterol sulfate 2.5 mg/3 mL (0.083 %) solution for nebulization RxNorm: 461464 1 Vial Inhalation every four hours as needed as needed for dyspnea 2019 Inactive 60/box. This refill negates all other refills of this medication. Please do not fill early. Please do not auto refill. Symbicort 160 mcg-4.5 mcg/actuation HFA aerosol inhaler RxNorm: 0844760 2 Puff(s) INH BID No Stop Date Active Alcohol Prep Pads RxNorm: 080119 1 Patch TOP QAM 2019 Inactive Ventolin HFA 90 mcg/actuation aerosol inhaler RxNorm: 666883 2 Puff(s) INH QID 2019 Inactive Please do not fill early. Please do not auto refill. This refill negates all other refills of this medication True Metrix Glucose Test Strip RxNorm: 1 Test Strips Miscellaneous QAM 019 2019 Inactive 100/container atorvastatin 40 mg tablet RxNorm: 025469 1 Tablet(s) Oral every day 2019 Inactive buspirone 7.5 mg tablet RxNorm: 991126 1 Tablet(s) PO BID 019 2020 Inactive This refill negates all other refills of this medication hydrochlorothiazide 12.5 mg tablet RxNorm: 844384 1 Tablet(s) PO QAM 019 2019 Inactive levmetamfetamine 50 mg nasal inhaler RxNorm: 1 Unit(s) NASAL Q3-4H Do not use more than every 3 hours or 8 times/24hours 019 2021 Inactive Please do not auto refill. This refill negates all other refills of this medication Ventolin HFA 90 mcg/actuation aerosol inhaler RxNorm: 535271 2 Puff(s) INH QID 019 2018 Inactive Please do not fill early. Please do not auto refill. This refill negates all other refills of this medication Singulair 10 mg tablet RxNorm: 782004 1 Tablet(s) PO daily 019 2019 Inactive This refill negates all other refills of this medication cetirizine 10 mg tablet RxNorm: 7058965 1 Tablet(s) PO daily 019 2019 Inactive This refill negates all other refills of this medication. Please do not auto refill levothyroxine 50 mcg tablet RxNorm: 554920 1 Tablet(s) PO daily 019 2019 Inactive This refill negates all other refills of this medication diclofenac sodium 75 mg tablet,delayed release RxNorm: 138921 1 Tablet(s) PO BID 019 2019 Inactive This refill negates all other refills of this medication ranitidine 150 mg tablet RxNorm: 863179 1 Tablet(s) PO BID 019 2018 Inactive This refill negates all other refills of this medication Calcium 600-D3 Plus (mag-zinc) 600 mg calcium-800 unit-50 mg tablet RxNorm: 1 Tablet(s) PO daily take an additonal tablet for itching. 2018 Inactive This refill negates all other refills of this medication albuterol sulfate 2.5 mg/3 mL (0.083 %) solution for nebulization RxNorm: 837935 1 Vial INH QID 2018 Inactive 60/box. This refill negates all other refills of this medication. Please do not fill early. Please do not auto refill. lisinopril 2.5 mg tablet RxNorm: 917669 1 Tablet(s) PO daily 019 2019 Inactive gabapentin 300 mg capsule RxNorm: 358223 1 Capsule(s) PO TID 019 2019 Inactive atorvastatin 20 mg tablet RxNorm: 775838 1 Tablet(s) PO QHS 2018 Inactive This refill negates all other refills of this medication TRUEplus Lancets 30 gauge RxNorm: 1 Lancets Miscellaneous QAM 019 2018 Inactive 100/box gabapentin 300 mg capsule RxNorm: 068150 1 Capsule(s) PO TID 019 2018 Inactive [place] Complete (iron) 18 mg iron chewable tablet RxNorm: 1 Tablet(s) PO daily 019 2021 Inactive This refill negates all other refills of this medication gabapentin 300 mg capsule RxNorm: 953017 1 Capsule(s) PO TID as needed 019 2018 Inactive True Metrix Glucose Test Strip RxNorm: 1 Test Strips Miscellaneous QAM 019 2018 Inactive 100/container Alcohol Prep Pads RxNorm: 672462 1 Patch TOP QAM 019 2018 Inactive TRUEplus Lancets 30 gauge RxNorm: 1 Lancets Miscellaneous QAM 019 2018 Inactive 100/box lisinopril 2.5 mg tablet RxNorm: 016949 1 Tablet(s) PO daily 019 2018 Inactive ranitidine 150 mg tablet RxNorm: 495544 1 Tablet(s) PO BID 019 2018 Inactive This refill negates all other refills of this medication albuterol sulfate 2.5 mg/3 mL (0.083 %) solution for nebulization RxNorm: 542480 1 Vial INH QID 019 2018 Inactive [...] this medication gabapentin 300 mg capsule RxNorm: 569623 1 Capsule(s) PO TID as needed 019 2018 Inactive atorvastatin 20 mg tablet RxNorm: 208258 1 Tablet(s) PO QHS 019 2018 Inactive This refill negates all other refills of this medication trazodone 50 mg tablet RxNorm: 422721 1 Tablet(s) PO QHS 019 2018 Inactive This refill negates all other refills of this medication Ventolin HFA 90 mcg/actuation aerosol inhaler RxNorm: 604012 2 Puff(s) INH QID 019 2018 Inactive Please do not fill early. Please do not auto refill. This refill negates all other refills of this medication Calcium 600-D3 Plus 600 mg calcium-800 unit-50 mg tablet RxNorm: 1 Tablet(s) PO daily take an additonal tablet for itching. 019 2018 Inactive This refill negates all other refills of this medication Singulair 10 mg tablet RxNorm: 220238 1 Tablet(s) PO daily 019 2018 Inactive This refill negates all other refills of this medication buspirone 7.5 mg tablet RxNorm: 597598 1 Tablet(s) PO BID 019 2018 Inactive This refill negates all other refills of this medication diclofenac sodium 75 mg tablet,delayed release RxNorm: 124396 1 Tablet(s) PO BID 019 2018 Inactive This refill negates all other refills of this medication hydrochlorothiazide 12.5 mg tablet RxNorm: 038023 1 Tablet(s) PO QAM 019 2018 Inactive metoprolol succinate ER 50 mg tablet,extended release 24 hr RxNorm: 018933 1 Tablet(s) PO daily 019 2018 Inactive This refill negates all other refills of this medication levothyroxine 50 mcg tablet RxNorm: 392611 1 Tablet(s) PO daily 019 2018 Inactive This refill negates all other refills of this medication cetirizine 10 mg tablet RxNorm: 4792090 1 Tablet(s) PO daily 019 2018 Inactive This refill negates all other refills of this medication. Please do not auto refill [place] Complete (iron) 18 mg iron chewable tablet RxNorm: 1 Tablet(s) PO daily 019 2018 Inactive This refill negates all other refills of this medication buspirone 7.5 mg tablet RxNorm: 443396 1 Tablet(s) PO BID 019 2018 Inactive cetirizine 10 mg tablet RxNorm: 4950207 1 Tablet(s) PO daily 018 2018 Inactive Guaiasorb DM 10 mg-100 mg/5 mL oral liquid RxNorm: 619674 10 Milliliter(s) PO As needed every 4 hr 018 2018 Inactive Vicks Vaporub 4.7 %-1.2 %-2.6 % topical ointment RxNorm: 3154888 1 Application TOP TID 2018 Inactive levmetamfetamine 50 mg nasal inhaler RxNorm: 1 Unit(s) NASAL Q3-4H 2017 Inactive sertraline 50 mg tablet RxNorm: 864205 1 Tablet(s) PO daily 2018 Inactive Please note dose trazodone 50 mg tablet RxNorm: 037903 1 Tablet(s) PO QHS 2018 Inactive sertraline 50 mg tablet RxNorm: 738565 1 Tablet(s) PO daily 2017 Inactive amoxicillin 500 mg tablet RxNorm: 152473 1 Tablet(s) PO Q12H 2017 Inactive albuterol sulfate 2.5 mg/3 mL (0.083 %) solution for nebulization RxNorm: 460690 1 Vial INH QID 2018 Inactive 60/box. Please do not fill early. Please do not auto refill. Prozac 10 mg capsule RxNorm: 363388 1 Capsule(s) PO daily 2017 Inactive buspirone 7.5 mg tablet RxNorm: 096082 1 Tablet(s) PO BID 2018 Inactive gabapentin 300 mg capsule RxNorm: 656633 1 Capsule(s) PO TID as needed 2018 Inactive hydrochlorothiazide 12.5 mg tablet RxNorm: 113712 1 Tablet(s) PO QAM 2018 Inactive ranitidine 150 mg tablet RxNorm: 513177 1 Tablet(s) PO BID 2018 Inactive Macrobid 100 mg capsule RxNorm: 285644 1 Capsule(s) PO Q12H 018 2017 Inactive Singulair 10 mg tablet RxNorm: 626098 1 Tablet(s) PO daily 2018 Inactive Ventolin HFA 90 mcg/actuation aerosol inhaler RxNorm: 0082968 2 Puff(s) INH QID 018 2018 Inactive Singulair 10 mg tablet RxNorm: 223455 1 Tablet(s) PO daily 018 2017 Inactive buspirone 7.5 mg tablet RxNorm: 554216 1 Tablet(s) PO BID 018 2017 Inactive Prozac 10 mg capsule RxNorm: 995644 1 Capsule(s) PO daily 018 2017 Inactive diclofenac sodium 75 mg tablet,delayed release RxNorm: 751320 1 Tablet(s) PO BID 018 2017 Inactive lisinopril 2.5 mg tablet RxNorm: 140326 1 Tablet(s) PO daily 018 2017 Inactive Neilmed Pediatric Sinus Rinse Refill packet RxNorm: 1 Unit Dose NASAL PRN 018 2021 Inactive metoprolol succinate ER 50 mg tablet,extended release 24 hr RxNorm: 821965 1 Tablet(s) PO daily 018 2017 Inactive levothyroxine 50 mcg tablet RxNorm: 633675 1 Tablet(s) PO daily 018 2017 Inactive TRUEplus Lancets 30 gauge RxNorm: 1 Lancets Miscellaneous QAM 018 2017 Inactive 100/box Ventolin HFA 90 mcg/actuation aerosol inhaler RxNorm: 651953 2 Puff(s) INH QID 018 2017 Inactive Aleve 220 mg capsule RxNorm: 1043413 1 Capsule(s) PO BID 018 2018 Inactive ranitidine 150 mg tablet RxNorm: 787367 1 Tablet(s) PO BID 018 2017 Inactive gabapentin 300 mg capsule RxNorm: 731367 1 Capsule(s) PO TID as needed 018 2017 Inactive atorvastatin 20 mg tablet RxNorm: 782128 1 Tablet(s) PO QHS 018 2017 Inactive True Metrix Glucose Test Strip RxNorm: 1 Test Strips Miscellaneous QAM 018 2017 Inactive 50/container Calcium 600-D3 Plus 600 mg calcium-800 unit-50 mg tablet RxNorm: 1 Tablet(s) PO daily take an additonal tablet for itching. 018 2017 Inactive hydrochlorothiazide 12.5 mg tablet RxNorm: 816423 1 Tablet(s) PO QAM 018 2017 Inactive Flintstones Complete (iron) 18 mg iron chewable tablet RxNorm: 1 Tablet(s) PO daily 018 2017 Inactive True Metrix Glucose Meter RxNorm: miscellaneous 019 2018 Inactive sertraline 50 mg tablet RxNorm: 553862 1 Tablet(s) PO daily 020 2019 Inactive loperamide 2 mg tablet RxNorm: 052729 oral 019 2018 Inactive d-mannose oral powder RxNorm: PO 018 2021 Inactive Symbicort 160 mcg-4.5 mcg/actuation HFA aerosol inhaler RxNorm: 0673856 2 Puff(s) INH BID 019 2018 Inactive Medication Administered No Medication Administered data Results Observation Observation Code Item Item Code Result Date Service Location COMPLETE CBC W/ DIFF WBC 27549 WBC 6690-2 7.7 K/ul 2022 [facility] [address] [place] [address] COMPLETE CBC W/ DIFF WBC 31398 RBC 789-8 4.92 M/uL 2022 [facility] [address] [place] [address] COMPLETE CBC W/ DIFF WBC 83688 Hemoglobin 718-7 12.5 g/dL 2022 [facility] [address] [place] [address] COMPLETE CBC W/ DIFF WBC 26170 Hematocrit 4544-3 38.4 % 2022 [facility] [address] [place] [address] COMPLETE CBC W/ DIFF WBC 44233 MCV 787-2 78.1 fL 2022 [facility] [address] [place] [address] COMPLETE CBC W/ DIFF WBC 23435 MCH 785-6 25.5 pg 2022 [facility] [address] [place] [address] COMPLETE CBC W/ DIFF WBC 51487 MCHC 786-4 32.6 g/dL 2022 [facility] [address] [place] [address] COMPLETE CBC W/ DIFF WBC 83103 RDW 788-0 14.6 % 2022 [facility] [address] [place] [address] COMPLETE CBC W/ DIFF WBC 45291 Platelet Count 777-3 357 K/uL 2022 [facility] [address] [place] [address] COMPLETE CBC W/ DIFF WBC 85026 MPV 81067-1 8.1 fL 2022 [facility] [address] [place] [address] COMPLETE CBC W/ DIFF WBC 39009 Neutrophils % 770-8 63.7 % 2022 [facility] [address] [place] [address] COMPLETE CBC W/ DIFF WBC 82058 Lymphocytes % 736-9 27.9 % 2022 [facility] [address] [place] [address] COMPLETE CBC W/ DIFF WBC 30182 Monocytes % 5905-5 6.8 % 2022 [facility] [address] [place] [address] COMPLETE CBC W/ DIFF WBC 73215 Eosinophils % 713-8 1.2 % 2022 [facility] [address] [place] [address] COMPLETE CBC W/ DIFF WBC 43323 Basophils% 706-2 0.4 % 2022 [facility] [address] [place] [address] COMPLETE CBC W/ DIFF WBC 35908 Absolute Neutrophil 751-8 4905 /ul 2022 [facility] [address] [place] [address] COMPLETE CBC W/ DIFF WBC 37512 Absolute Lymphocyte 97239-9 2148 /ul 2022 [facility] [address] [place] [address] COMPLETE CBC W/ DIFF WBC 56172 Absolute Monocyte 742-7 524 /ul 2022 [facility] [address] [place] [address] COMPLETE CBC W/ DIFF WBC 96429 Absolute Eosinophil 711-2 92 /ul 2022 [facility] [address] [place] [address] COMPLETE CBC W/ DIFF WBC 33633 Absolute Basophil 704-7 31 /ul 2022 [facility] [address] [place] [address] 93640 CHEM 14 (METABOLIC PANEL) 60664 Glucose 2345-7 75 mg/dL 2022 [facility] [address] [place] [address] CHEM 14 (METABOLIC PANEL) 08576 BUN 3094-0 14 mg/dL 2022 [facility] [address] [place] [address] CHEM 14 (METABOLIC PANEL) 59167 Creatinine 2160-0 0.9 mg/dL 2022 [facility] [address] [place] [address] 83066 CHEM 14 (METABOLIC PANEL) 57742 BUN/Creat Ratio 3097-3 16.0 2022 [facility] [address] [place] [address] 31018 CHEM 14 (METABOLIC PANEL) 28690 GFR Estimated 33514-2 87 mL/min/1.73m 2 2022 [facility] [address] [place] [address] 37445 CHEM 14 (METABOLIC PANEL) 67147 Sodium 2951-2 140 mmol/L 2022 [facility] [address] [place] [address] 18360 CHEM 14 (METABOLIC PANEL) 90403 Potassium 2823-3 4.3 mmol/L 2022 [facility] [address] [place] [address] 20132 CHEM 14 (METABOLIC PANEL) 75624 Chloride 2075-0 105 mmol/L 2022 [facility] [address] [place] [address] 38040 CHEM 14 (METABOLIC PANEL) 71402 Total CO2 2028-9 28 mmol/L 2022 [facility] [address] [place] [address] 51955 CHEM 14 (METABOLIC PANEL) 44397 Anion Gap 1863-0 11.3 mEq/L 2022 [facility] [address] [place] [address] 28863 CHEM 14 (METABOLIC PANEL) 50119 Calculated Serum Osmolality 98182-5 289 mOsm/kg 2022 [facility] [address] [place] [address] 15081 CHEM 14 (METABOLIC PANEL) 90649 Albumin 60627-5 3.7 g/dL 2022 [facility] [address] [place] [address] CHEM 14 (METABOLIC PANEL) 11678 Total Protein 2885-2 7.3 g/dL 2022 [facility] [address] [place] [address] CHEM 14 (METABOLIC PANEL) 39977 Globulin 2336-6 3.6 g/dL 2022 [facility] [address] [place] [address] CHEM 14 (METABOLIC PANEL) 91419 Albumin/Globulin Ratio 1759-0 1.0 2022 [facility] [address] [place] [address] CHEM 14 (METABOLIC PANEL) 13844 ALK PHOS 6768-6 100.00 U/L 2022 [facility] [address] [place] [address] CHEM 14 (METABOLIC PANEL) 82680 SGOT/AST 1920-8 15 U/L 2022 [facility] [address] [place] [address] 17653 CHEM 14 (METABOLIC PANEL) 04578 SGPT/ALT 1743-4 35 U/L 2022 [facility] [address] [place] [address] 42248 CHEM 14 (METABOLIC PANEL) 55673 Total Bilirubin 1975-2 0.3 mg/dL 2022 [facility] [address] [place] [address] CHEM 14 (METABOLIC PANEL) 27778 Calcium 89509-7 9.6 mg/dL 2022 [facility] [address] [place] [address] 72783 CHEM 14 (METABOLIC PANEL) 37912 Corrected Calcium 30217-9 10.0 mg/dL 09/21 [facility] [address] [place] [address] 94218 [id number] IN 4548-4 Glyco HGB A1C 05429-5 5.6 % 2022 [facility] [address] [place] [address] [id number] IN 4548-4 eAG 26397-8 114 mg/dL 2022 [facility] [address] [place] [address] COMPLETE CBC W/ DIFF WBC 42905 WBC 6690-2 7.8 K/ul 2022 [facility] [address] [place] [address] COMPLETE CBC W/ DIFF WBC 97013 RBC 789-8 4.32 M/uL 2022 [facility] [address] [place] [address] COMPLETE CBC W/ DIFF WBC 45139 Hemoglobin 718-7 11.5 g/dL 2022 [facility] [address] [place] [address] COMPLETE CBC W/ DIFF WBC 81697 Hematocrit 4544-3 34.6 % 2022 [facility] [address] [place] [address] COMPLETE CBC W/ DIFF WBC 37774 MCV 787-2 80.1 fL 2022 [facility] [address] [place] [address] COMPLETE CBC W/ DIFF WBC 33796 MCH 785-6 26.7 pg 2022 [facility] [address] [place] [address] 26284 COMPLETE CBC W/ DIFF WBC 29170 MCHC 786-4 33.3 g/dL 2022 [facility] [address] [place] [address] 19722 COMPLETE CBC W/ DIFF WBC 93998 RDW 788-0 15.2 % 2022 [facility] [address] [place] [address] 90478 COMPLETE CBC W/ DIFF WBC 55014 Platelet Count 777-3 314 K/uL 2022 [facility] [address] [place] [address] 48753 COMPLETE CBC W/ DIFF WBC 08746 MPV 31703-8 8.9 fL 2022 [facility] [address] [place] [address] 74097 COMPLETE CBC W/ DIFF WBC 10865 Neutrophils % 770-8 59.2 % 2022 [facility] [address] [place] [address] 39395 COMPLETE CBC W/ DIFF WBC 43272 Lymphocytes % 736-9 28.1 % 2022 [facility] [address] [place] [address] 17255 COMPLETE CBC W/ DIFF WBC 20101 Monocytes % 5905-5 7.1 % 2022 [facility] [address] [place] [address] 25092 COMPLETE CBC W/ DIFF WBC 76670 Eosinophils % 713-8 5.0 % 2022 [facility] [address] [place] [address] 89314 COMPLETE CBC W/ DIFF WBC 95862 Basophils% 706-2 0.6 % 08/04/ 2023 [facility] [address] [place] [address] COMPLETE CBC W/ DIFF WBC 65707 Absolute Neutrophil 751-8 4618 /ul 2022 [facility] [address] [place] [address] COMPLETE CBC W/ DIFF WBC 31890 Absolute Lymphocyte 80367-6 2192 /ul 2022 [facility] [address] [place] [address] COMPLETE CBC W/ DIFF WBC 66655 Absolute Monocyte 742-7 554 /ul 2022 [facility] [address] [place] [address] COMPLETE CBC W/ DIFF WBC 64848 Absolute Eosinophil 711-2 390 /ul 2022 [facility] [address] [place] [address] COMPLETE CBC W/ DIFF WBC 12627 Absolute Basophil 704-7 47 /ul 2022 [facility] [address] [place] [address] 01120 HDL - CHOL 39563 HDL 2085-9 43 mg/dL 2022 [facility] [address] [place] [address] HDL - CHOL 72375 CHD 90255-3 28 % 2022 [facility] [address] [place] [address] MICROALBUMIN (URINE) 89698 Microalbumin 90819-6 1.3 mg/dL 2022 [facility] [address] [place] [address] MICROALBUMIN (URINE) 41255 Microalbumin/Crea tinine Ratio 16116-5 30 MCG/MGCREAT 2022 [facility] [address] [place] [address] MICROALBUMIN (URINE) 40114 Urine Creatinine 2161-8 42.70 mg/dL 2022 [facility] [address] [place] [address] 78017 DIRECT LDL - CHOL 15531 LDL-Direct 17696-7 93 mg/dL 0 2022 [facility] [address] [place] [address] TRIGLYCERIDES 03545 Triglycerides 2571-8 123 mg/dL 2022 [facility] [address] [place] [address] TRIGLYCERIDES 92723 VLDL 88156-6 25 mg/dL 2022 [facility] [address] [place] [address] CHOLESTEROL 90540 Cholesterol 2093-3 155 mg/dL 2022 [facility] [address] [place] [address] 38515 VITAMIN D 40072 Vitamin D 92285-2 79.4 ng/mL 2022 [facility] [address] [place] [address] PREALBUMIN 54820 Prealbumin 23172-5 22 mg/dL 2022 [facility] [address] [place] [address] CHEM 14 (METABOLIC PANEL) 53684 Glucose 2345-7 88 mg/dL 2022 [facility] [address] [place] [address] 20073 CHEM 14 (METABOLIC PANEL) 39856 BUN 3094-0 19 mg/dL 2022 [facility] [address] [place] [address] 57263 CHEM 14 (METABOLIC PANEL) 50778 Creatinine 2160-0 0.9 mg/dL 2022 [facility] [address] [place] [address] 74324 CHEM 14 (METABOLIC PANEL) 46757 BUN/Creat Ratio 3097-3 20.6 2022 [facility] [address] [place] [address] 93310 CHEM 14 (METABOLIC PANEL) 17835 GFR Estimated 83426-1 82 mL/min/1.73m 2 2022 [facility] [address] [place] [address] 45547 CHEM 14 (METABOLIC PANEL) 86729 Sodium 2951-2 141 mmol/L 2022 [facility] [address] [place] [address] 91230 CHEM 14 (METABOLIC PANEL) 67695 Potassium 2823-3 3.9 mmol/L 2022 [facility] [address] [place] [address] 77783 CHEM 14 (METABOLIC PANEL) 25045 Chloride 2075-0 107 mmol/L 2022 [facility] [address] [place] [address] 78586 CHEM 14 (METABOLIC PANEL) 54919 Total CO2 2028-9 26 mmol/L 2022 [facility] [address] [place] [address] 57755 CHEM 14 (METABOLIC PANEL) 43858 Calculated Serum Osmolality 82286-5 294 mOsm/kg 2022 [facility] [address] [place] [address] 30137 CHEM 14 (METABOLIC PANEL) 37005 Anion Gap 1863-0 11.9 mEq/L 2022 [facility] [address] [place] [address] 16519 CHEM 14 (METABOLIC PANEL) 36962 Albumin 18293-3 3.7 g/dL 2022 [facility] [address] [place] [address] CHEM 14 (METABOLIC PANEL) 14980 Total Protein 2885-2 7.2 g/dL 2022 [facility] [address] [place] [address] CHEM 14 (METABOLIC PANEL) 75833 Globulin 2336-6 3.5 g/dL 2022 [facility] [address] [place] [address] CHEM 14 (METABOLIC PANEL) 59649 Albumin/Globulin Ratio 1759-0 1.1 2022 [facility] [address] [place] [address] CHEM 14 (METABOLIC PANEL) 74035 ALK PHOS 6768-6 89.00 U/L 2022 [facility] [address] [place] [address] CHEM 14 (METABOLIC PANEL) 59823 SGOT/AST 1920-8 14 U/L 2022 [facility] [address] [place] [address] CHEM 14 (METABOLIC PANEL) 02408 SGPT/ALT 1743-4 23 U/L 2022 [facility] [address] [place] [address] CHEM 14 (METABOLIC PANEL) 63498 Total Bilirubin 1975-2 0.4 mg/dL 2022 [facility] [address] [place] [address] CHEM 14 (METABOLIC PANEL) 96960 Calcium 71174-1 9.4 mg/dL 2022 [facility] [address] [place] [address] CHEM 14 (METABOLIC PANEL) 44735 Corrected Calcium 99165-2 9.8 mg/dL 10/21 [facility] [address] [place] [address] [id number] IN 4548-4 Glyco HGB A1C 88995-8 5.6 % 2022 [facility] [address] [place] [address] [id number] IN 4548-4 eAG 86673-4 114 mg/dL 2022 [facility] [address] [place] [address] COMPLETE CBC W/ DIFF WBC 74127 WBC 6690-2 12.4 K/ul 2022 [facility] [address] [place] [address] COMPLETE CBC W/ DIFF WBC 62523 RBC 789-8 4.78 M/uL 2022 [facility] [address] [place] [address] COMPLETE CBC W/ DIFF WBC 46533 Hemoglobin 718-7 12.0 g/dL 2022 [facility] [address] [place] [address] COMPLETE CBC W/ DIFF WBC 22786 Hematocrit 4544-3 38.3 % 2022 [facility] [address] [place] [address] COMPLETE CBC W/ DIFF WBC 79453 MCV 787-2 80.1 fL 2022 [facility] [address] [place] [address] COMPLETE CBC W/ DIFF WBC 82472 MCH 785-6 25.1 pg 2022 [facility] [address] [place] [address] 03762 COMPLETE CBC W/ DIFF WBC 53697 MCHC 786-4 31.4 g/dL 2022 [facility] [address] [place] [address] COMPLETE CBC W/ DIFF WBC 75076 RDW 788-0 14.3 % 2022 [facility] [address] [place] [address] COMPLETE CBC W/ DIFF WBC 23769 Platelet Count 777-3 397 K/uL 2022 [facility] [address] [place] [address] 83123 COMPLETE CBC W/ DIFF WBC 99739 MPV 15352-5 9.0 fL 2022 [facility] [address] [place] [address] COMPLETE CBC W/ DIFF WBC 85649 Neutrophils % 770-8 74.4 % 2022 [facility] [address] [place] [address] 03931 COMPLETE CBC W/ DIFF WBC 24752 Lymphocytes % 736-9 18.3 % 2022 [facility] [address] [place] [address] COMPLETE CBC W/ DIFF WBC 00768 Monocytes % 5905-5 6.3 % 2022 [facility] [address] [place] [address] 44564 COMPLETE CBC W/ DIFF WBC 61583 Eosinophils % 713-8 0.7 % 2022 [facility] [address] [place] [address] COMPLETE CBC W/ DIFF WBC 17063 Basophils% 706-2 0.3 % 2022 [facility] [address] [place] [address] COMPLETE CBC W/ DIFF WBC 24826 Absolute Neutrophil 751-8 9226 /ul 2022 [facility] [address] [place] [address] COMPLETE CBC W/ DIFF WBC 32345 Absolute Lymphocyte 61916-8 2269 /ul 2022 [facility] [address] [place] [address] COMPLETE CBC W/ DIFF WBC 08211 Absolute Monocyte 742-7 781 /ul 2022 [facility] [address] [place] [address] COMPLETE CBC W/ DIFF WBC 60787 Absolute Eosinophil 711-2 87 /ul 2022 [facility] [address] [place] [address] COMPLETE CBC W/ DIFF WBC 94852 Absolute Basophil 704-7 37 /ul 2022 [facility] [address] [place] [address] 78293 VITAMIN B-12 59173 Vitamin B12 2132-9 238 pg/mL 10/21 [facility] [address] [place] [address] 20142 [id number] IN [facility]8 Glyco HGB A1C 89863-3 5.8 % 2021 [facility] [address] [place] [address] 39391 [id number] IN [facility] eAG 81203-2 120 mg/dL 2021 [facility] [address] [place] [address] TSH 92653 TSH 41079-6 2.130 uIU/mL 2021 [facility] [address] [place] [address] 09614 CHEM 14 (METABOLIC PANEL) 46388 Glucose 2345-7 73 mg/dL 2021 [facility] [address] [place] [address] 66817 CHEM 14 (METABOLIC PANEL) 71367 BUN 3094-0 13 mg/dL 2021 [facility] [address] [place] [address] 55006 CHEM 14 (METABOLIC PANEL) 41752 Creatinine 2160-0 0.8 mg/dL 2021 [facility] [address] [place] [address] 74536 CHEM 14 (METABOLIC PANEL) 00469 BUN/Creat Ratio 3097-3 15.7 2021 [facility] [address] [place], [place] [address] CHEM 14 (METABOLIC PANEL) 26039 GFR Estimated 64419-2 94 mL/min/1.73m 2 2021 [facility] [address] [place] [address] CHEM 14 (METABOLIC PANEL) 39602 Sodium 2951-2 141 mmol/L 2021 [facility] [address] [place] [address] 87708 CHEM 14 (METABOLIC PANEL) 26696 Potassium 2823-3 4.2 mmol/L 2021 [facility] [address] [place] [address] CHEM 14 (METABOLIC PANEL) 15060 Chloride 2075-0 102 mmol/L 2021 [facility] [address] [place] [address] 66289 CHEM 14 (METABOLIC PANEL) 12549 Total CO2 2028-9 30 mmol/L 2021 [facility] [address] [place] [address] 42246 CHEM 14 (METABOLIC PANEL) 99429 Calculated Serum Osmolality 97573-9 291 mOsm/kg 2021 [facility] [address] [place] [address] 88859 CHEM 14 (METABOLIC PANEL) 00922 Anion Gap 1863-0 13.2 mEq/L 2021 [facility] [address] [place] [address] 31749 CHEM 14 (METABOLIC PANEL) 43803 Albumin 16218-3 3.7 g/dL 2021 [facility] [address] [place] [address] 49864 CHEM 14 (METABOLIC PANEL) 81489 Total Protein 2885-2 7.2 g/dL 2021 [facility] [address] [place] [address] 05356 CHEM 14 (METABOLIC PANEL) 77509 Globulin 2336-6 3.5 g/dL 2021 [facility] [address] [place] [address] CHEM 14 (METABOLIC PANEL) 96979 Albumin/Globulin Ratio 1759-0 1.1 2021 [facility] [address] [place] [address] 15081 CHEM 14 (METABOLIC PANEL) 63185 ALK PHOS 6768-6 74.00 U/L 2021 [facility] [address] [place] [address] 58622 CHEM 14 (METABOLIC PANEL) 36483 SGOT/AST 1920-8 15 U/L 2021 [facility] [address] [place] [address] 81797 CHEM 14 (METABOLIC PANEL) 71898 SGPT/ALT 1743-4 35 U/L 2021 [facility] [address] [place] [address] CHEM 14 (METABOLIC PANEL) 09444 Total Bilirubin 1975-2 0.4 mg/dL 2021 [facility] [address] [place] [address] CHEM 14 (METABOLIC PANEL) 59779 Calcium 06030-9 9.6 mg/dL 2021 [facility] [address] [place] [address] CHEM 14 (METABOLIC PANEL) 26559 Corrected Calcium 72365-5 10.0 mg/dL 06/24 [facility] [address] [place] [address] MICROALBUMIN (URINE) 78127 Microalbumin 11512-3 0.6 mg/dL 2021 [facility] [address] [place] [address] MICROALBUMIN (URINE) 42599 Microalbumin/Crea tinine Ratio 36377-9 7 MCG/MGCREAT 2021 [facility] [address] [place] [address] MICROALBUMIN (URINE) 44494 Urine Creatinine 2161-8 84.10 mg/dL 2021 [facility] [address] [place] [address] CHEM 14 (METABOLIC PANEL) 75199 Glucose 2345-7 90 mg/dL 2021 [facility] [address] [place] [address] 68621 CHEM 14 (METABOLIC PANEL) 84614 BUN 3094-0 15 mg/dL 2021 [facility] [address] [place] [address] 56365 CHEM 14 (METABOLIC PANEL) 37637 Creatinine 2160-0 0.8 mg/dL 2021 [facility] [address] [place] [address] CHEM 14 (METABOLIC PANEL) 61021 BUN/Creat Ratio 3097-3 19.1 2021 [facility] [address] [place] [address] 00826 CHEM 14 (METABOLIC PANEL) 92237 GFR Estimated 45581-7 100 mL/min/1.73m 2 2021 [facility] [address] [place] [address] 53457 CHEM 14 (METABOLIC PANEL) 00953 Sodium 2951-2 139 mmol/L 2021 [facility] [address] [place] [address] CHEM 14 (METABOLIC PANEL) 81115 Potassium 2823-3 4.0 mmol/L 2021 [facility] [address] [place] [address] CHEM 14 (METABOLIC PANEL) 35748 Chloride 2075-0 102 mmol/L 2021 [facility] [address] [place] [address] CHEM 14 (METABOLIC PANEL) 48003 Total CO2 2028-9 27 mmol/L 2021 [facility] [address] [place] [address] CHEM 14 (METABOLIC PANEL) 76633 Anion Gap 1863-0 14.0 mEq/L 2021 [facility] [address] [place] [address] CHEM 14 (METABOLIC PANEL) 54039 Calculated Serum Osmolality 13010-8 288 mOsm/kg 2021 [facility] [address] [place] [address] 72697 CHEM 14 (METABOLIC PANEL) 20600 Albumin 75144-9 3.8 g/dL 2021 [facility] [address] [place] [address] 17584 CHEM 14 (METABOLIC PANEL) 94535 Total Protein 2885-2 7.4 g/dL 2021 [facility] [address] [place] [address] 87354 CHEM 14 (METABOLIC PANEL) 81058 Globulin 2336-6 3.6 g/dL 2021 [facility] [address] [place] [address] 51087 CHEM 14 (METABOLIC PANEL) 19809 Albumin/Globulin Ratio 1759-0 1.1 2021 [facility] [address] [place] [address] 39623 CHEM 14 (METABOLIC PANEL) 12195 ALK PHOS 6768-6 58.00 U/L 2021 [facility] [address] [place] [address] 75983 CHEM 14 (METABOLIC PANEL) 08705 SGOT/AST 1920-8 14 U/L 2021 [facility] [address] [place] [address] 12418 CHEM 14 (METABOLIC PANEL) 39603 SGPT/ALT 1743-4 30 U/L 2021 [facility] [address] [place] [address] 81325 CHEM 14 (METABOLIC PANEL) 50243 Total Bilirubin 1975-2 0.4 mg/dL 05/13/ 2022 [facility] [address] [place] [address] CHEM 14 (METABOLIC PANEL) 56527 Calcium 40652-5 9.5 mg/dL 2021 [facility] [address] [place] [address] CHEM 14 (METABOLIC PANEL) 30433 Corrected Calcium 42530-0 9.8 mg/dL 02/12 [facility] [address] [place] [address] DIRECT LDL - CHOL 68756 LDL-Direct 64125-7 221 mg/dL 0 2021 [facility] [address] [place] [address] [id number] IN [facility]84 Glyco HGB A1C 51127-0 5.6 % 2021 [facility] [address] [place] [address] [id number] IN [facility] eAG 29055-1 114 mg/dL 2021 [facility] [address] [place] [address] COMPLETE CBC W/ DIFF WBC 46577 WBC 6690-2 7.1 K/ul 2021 [facility] [address] [place] [address] 00893 COMPLETE CBC W/ DIFF WBC 83628 RBC 789-8 4.43 M/uL 2021 [facility] [address] [place] [address] COMPLETE CBC W/ DIFF WBC 67062 Hemoglobin 718-7 11.9 g/dL 2021 [facility] [address] [place] [address] 46003 COMPLETE CBC W/ DIFF WBC 26706 Hematocrit 4544-3 36.0 % 2021 [facility] [address] [place] [address] 41470 COMPLETE CBC W/ DIFF WBC 68575 MCV 787-2 81.3 fL 2021 [facility] [address] [place] [address] COMPLETE CBC W/ DIFF WBC 46848 MCH 785-6 26.8 pg 2021 [facility] [address] [place] [address] 23388 COMPLETE CBC W/ DIFF WBC 93866 MCHC 786-4 33.0 g/dL 2021 [facility] [address] [place] [address] 71650 COMPLETE CBC W/ DIFF WBC 87067 RDW 788-0 13.9 % 2021 [facility] [address] [place] [address] 22478 COMPLETE CBC W/ DIFF WBC 29629 Platelet Count 777-3 367 K/uL 2021 [facility] [address] [place] [address] COMPLETE CBC W/ DIFF WBC 46565 MPV 07103-3 8.8 fL 2021 [facility] [address] [place] [address] COMPLETE CBC W/ DIFF WBC 30257 Neutrophils % 770-8 65.5 % 2021 [facility] [address] [place] [address] COMPLETE CBC W/ DIFF WBC 23888 Lymphocytes % 736-9 25.8 % 2021 [facility] [address] [place] [address] COMPLETE CBC W/ DIFF WBC 15752 Monocytes % 5905-5 7.1 % 2021 [facility] [address] [place] [address] COMPLETE CBC W/ DIFF WBC 68473 Eosinophils % 713-8 1.0 % 2021 [facility] [address] [place] [address] COMPLETE CBC W/ DIFF WBC 40441 Basophils% 706-2 0.6 % 2021 [facility] [address] [place] [address] COMPLETE CBC W/ DIFF WBC 89842 Absolute Neutrophil 751-8 4651 /ul 2021 [facility] [address] [place] [address] COMPLETE CBC W/ DIFF WBC 10579 Absolute Lymphocyte 97273-0 1832 /ul 2021 [facility] [address] [place] [id number] COMPLETE CBC W/ DIFF WBC 12806 Absolute Monocyte 742-7 504 /ul 2021 [facility] [address] [place] [address] COMPLETE CBC W/ DIFF WBC 54404 Absolute Eosinophil 711-2 71 /ul 2021 [facility] [address] [place] [address] COMPLETE CBC W/ DIFF WBC 67709 Absolute Basophil 704-7 43 /ul 2021 [facility] [address] [place] [address] VITAMIN B-12 95646 Vitamin B12 2132-9 184 pg/mL 11/03 [facility] [address] [place] [address] CHEM 14 (METABOLIC PANEL) 51048 Glucose 2345-7 101 mg/dL 2021 [facility] [address] [place] [address] 79708 CHEM 14 (METABOLIC PANEL) 39454 BUN 3094-0 14 mg/dL 2021 [facility] [address] [place] [address] 55076 CHEM 14 (METABOLIC PANEL) 46234 Creatinine 2160-0 0.7 mg/dL 2021 [facility] [address] [place] [address] 63483 CHEM 14 (METABOLIC PANEL) 58308 BUN/Creat Ratio 3097-3 21.5 2021 [facility] [address] [place] [address] 09662 CHEM 14 (METABOLIC PANEL) 08058 GFR Estimated 98709-5 117 mL/min/1.73m 2 2021 [facility] [address] [place] [address] 03434 CHEM 14 (METABOLIC PANEL) 00928 Sodium 2951-2 140 mmol/L 2021 [facility] [address] [place] [address] 65282 CHEM 14 (METABOLIC PANEL) 45947 Potassium 2823-3 4.6 mmol/L 2021 [facility] [address] [place] [address] 60977 CHEM 14 (METABOLIC PANEL) 11879 Chloride 2075-0 106 mmol/L 2021 [facility] [address] [place] [address] 96782 CHEM 14 (METABOLIC PANEL) 57689 Total CO2 2028-9 26 mmol/L 2021 [facility] [address] [place] [address] 58079 CHEM 14 (METABOLIC PANEL) 15122 Anion Gap 1863-0 12.6 mEq/L 2021 [facility] [address] [place] [address] 75868 CHEM 14 (METABOLIC PANEL) 97591 Calculated Serum Osmolality 12270-1 291 mOsm/kg 2021 [facility] [address] [place] [address] 85685 CHEM 14 (METABOLIC PANEL) 08108 Albumin 08500-4 3.6 g/dL 2021 [facility] [address] [place] [address] 73598 CHEM 14 (METABOLIC PANEL) 05509 Total Protein 2885-2 6.8 g/dL 2021 [facility] [address] [place] [address] 20303 CHEM 14 (METABOLIC PANEL) 02993 Globulin 2336-6 3.2 g/dL 2021 [facility] [address] [place] [address] CHEM 14 (METABOLIC PANEL) 43291 Albumin/Globulin Ratio 1759-0 1.1 2021 [facility] [address] [place] [address] CHEM 14 (METABOLIC PANEL) 95429 ALK PHOS 6768-6 57.00 U/L 2021 [facility] [address] [place] [address] CHEM 14 (METABOLIC PANEL) 51927 SGOT/AST 1920-8 19 U/L 2021 [facility] [address] [place] [address] CHEM 14 (METABOLIC PANEL) 79272 SGPT/ALT 1743-4 32 U/L 2021 [facility] [address] [place] [address] CHEM 14 (METABOLIC PANEL) 58006 Total Bilirubin 1975-2 0.3 mg/dL 2021 [facility] [address] [place] [address] CHEM 14 (METABOLIC PANEL) 03116 Calcium 19622-5 9.2 mg/dL 2021 [facility] [address] [place] [address] CHEM 14 (METABOLIC PANEL) 14295 Corrected Calcium 66197-6 9.7 mg/dL 11/03 [facility] [address] [place] [address] 86897 DIRECT LDL - CHOL 40880 LDL-Direct 11797-8 181 mg/dL 0 2021 [facility] [address] [place] [address] 66920 HDL - CHOL 29507 HDL 2085-9 40 mg/dL 2021 [facility] [address] [place] [address] 36028 HDL - CHOL 99216 CHD 28101-2 16 % 2021 [facility] [address] [place] [address] 58853 [id number] IN [facility]8-4 Glyco HGB A1C 32752-0 5.6 % 2021 [facility] [address] [place] [address] 16564 [id number] IN [facility]84 eAG 97793-3 114 mg/dL 2021 [facility] [address] [place] [address] PREALBUMIN 98005 Prealbumin 23671-3 27 mg/dL 2021 [facility] [address] [place] [address] MAGNESIUM 06081 Magnesium 79644-7 2.3 mg/dL 2021 [facility] [address] [place] [address] PTH 19865 PTH 2731-8 133.5 pg/mL 2021 [facility] [address] [place] [address] TSH 62164 TSH 98980-1 1.390 uIU/mL 2021 [facility] [address] [place] [address] VITAMIN D 87745 Vitamin D 71097-9 20.4 ng/mL 2021 [facility] [address] [place] [address] CHOLESTEROL 03821 Cholesterol 2093-3 251 mg/dL 2021 [facility] [address] [place] [address] 91715 TRIGLYCERIDES 03918 Triglycerides 2571-8 193 mg/dL 2021 [facility] [address] [place] [address] 99123 TRIGLYCERIDES 05568 VLDL 42334-6 39 mg/dL 2021 [facility] [address] [place] [address] 88990 MICROALBUMIN (URINE) 34238 Microalbumin 22407-5 NO SPECIMEN RECEIVED mg/dL 2020 [facility] [address] [place] [address] 43675 MICROALBUMIN (URINE) 45631 Microalbumin/Crea tinine Ratio 74226-6 NO SPECIMEN RECEIVED MCG/MGCREAT 2020 [facility] [address] [place] [address] 12456 MICROALBUMIN (URINE) 83458 Urine Creatinine 2161-8 NO SPECIMEN RECEIVED mg/dL 2020 [facility] [address] [place] [address] 11952 PROTEIN E-PHORESIS 28302 SPE Albumin 2862-1 4.11 g/dL 2020 [facility] [address] [place] [address] 59422 PROTEIN E-PHORESIS 99279 SPE Alpha 1 2865-4 0.19 g/dL 2020 [facility] [address] [place] [address] 08951 PROTEIN E-PHORESIS 27098 SPE Alpha 2 2868-8 0.76 g/dL [address] [facility] [address] [place] [address] 57558 PROTEIN E-PHORESIS 22461 SPE Beta 1 2871-2 0.52 g/dL 2020 [facility] [address] [facility] [place] [address] PROTEIN E-PHORESIS 55412 SPE Beta 2 2871-2 0.39 g/dL 2020 [facility] [address] [place] [address] PROTEIN E-PHORESIS 47894 SPE Gamma 2874-6 0.73 g/dL 2020 [facility] [address] [place] [address] PROTEIN E-PHORESIS 78382 SPE Pathology Consult 14265-3 Normal pattern.Meet Costa MD (Clinical Pathologist) 2020 [facility] [address] [place] [address] IMMUNOFIXATION (CHANTE) 88642 Serum IgM Band 64668-8 Absent 2020 [facility] [address] [place] [address] IMMUNOFIXATION (CHANTE) 69759 Serum IgG Band 16183-8 Absent 2020 [facility] [address] [place] [address] IMMUNOFIXATION (CHANTE) 18674 Serum IgA Band 01338-9 Absent 2020 [facility] [address] [place] [address] IMMUNOFIXATION (CHANTE) 49560 Serum [place] Band 92207-4 Absent 2020 [facility] [address] [place] [address] IMMUNOFIXATION (CHANTE) 21068 Serum Lambda Band 08686-9 Absent 2020 [facility] [address] [place] [address] IMMUNOFIXATION (CHANTE) 03704 CHANTE Pathology Consult 55033-6 Negative serum Immunofixati on. Meet Costa MD (Clinical Pathologist) 2020 [facility] [address] [place] [address] Hepatitis panel 08513 Hepatitis A IgM (Acute) 13925-5 Non-reactive (Negative) 2020 [facility] [address] [place] [address] Hepatitis panel 94623 Hepatitis B Surface Antigen 5195-3 Non-Reactive (Negative) 2020 [facility] [address] [place] [address] Hepatitis panel 87799 Hepatitis B Core Antibody (IgM) 71478-4 Non-Reactive (Negative) 2020 [facility] [address] [place] [address] Hepatitis panel 04466 Hepatitis C IgG Antibody 40443-1 Non-Reactive (Negative) 2020 [facility] [address] [place] [address] IGA [id number] IGA 2458-8 158 mg/dL 2020 [facility] [address] [place] [address] IGM 52875e4 IGM 2472-9 116 mg/dL 2020 [facility] [address] [place] [address] IGG 88630x9 IGG 2465-3 904 mg/dL 2020 [facility] [address] [place] [address] CHEM 14 (METABOLIC PANEL) 72506 Glucose 2345-7 85 mg/dL 2020 [facility] [address] [place] [address] CHEM 14 (METABOLIC PANEL) 27246 BUN 3094-0 14 mg/dL 2020 [facility] [address] [place] [address] CHEM 14 (METABOLIC PANEL) 52415 Creatinine 2160-0 0.7 mg/dL [address] [facility] [address] [place] [address] 25644 CHEM 14 (METABOLIC PANEL) 66647 BUN/Creat Ratio 3097-3 19.6 2020 [facility] [address] [place] [address] 32743 CHEM 14 (METABOLIC PANEL) 28096 GFR Estimated 59738-9 93 mL/min/1.73m 2 2020 [facility] [address] [place] [address] 88446 CHEM 14 (METABOLIC PANEL) 09226 GFR Estimated for Americans 06677-7 112 mL/min/1.73m 2 2020 [facility] [address] [place] [address] 16413 CHEM 14 (METABOLIC PANEL) 15669 Sodium 2951-2 143 mmol/L 2020 [facility] [address] [place] [address] CHEM 14 (METABOLIC PANEL) 87604 Potassium 2823-3 4.0 mmol/L 2020 [facility] [address] [place] [address] CHEM 14 (METABOLIC PANEL) 83536 Chloride 2075-0 107 mmol/L 2020 [facility] [address] [place] [address] CHEM 14 (METABOLIC PANEL) 76190 Total CO2 2028-9 27 mmol/L 2020 [facility] [address] [place] [address] 88136 CHEM 14 (METABOLIC PANEL) 26984 Calculated Serum Osmolality 86699-0 296 mOsm/kg 2020 [facility] [address] [place] [address] 46530 CHEM 14 (METABOLIC PANEL) 17253 Anion Gap 1863-0 13.0 mEq/L [address] [facility] [address] [place] [address] 10012 CHEM 14 (METABOLIC PANEL) 43496 Albumin 35994-7 3.4 g/dL 2020 [facility] [address] [place] [address] CHEM 14 (METABOLIC PANEL) 95195 Total Protein 2885-2 6.7 g/dL [address] [facility] [address] [place] [address] 31999 CHEM 14 (METABOLIC PANEL) 52756 Globulin 2336-6 3.3 g/dL [address] [facility] [address] [place] [address] 48298 CHEM 14 (METABOLIC PANEL) 89262 Albumin/Globulin Ratio 1759-0 1.0 2020 [facility] [address] [place] [address] 61535 CHEM 14 (METABOLIC PANEL) 51895 ALK PHOS 6768-6 228.00 U/L 2020 [facility] [address] [place] [address] 87641 CHEM 14 (METABOLIC PANEL) 83869 SGOT/AST 1920-8 49 U/L 2020 [facility] [address] [place] [address] 40297 CHEM 14 (METABOLIC PANEL) 12474 SGPT/ALT 1743-4 157 U/L 2020 [facility] [address] [place] [address] 16874 CHEM 14 (METABOLIC PANEL) 25952 Total Bilirubin 1975-2 0.3 mg/dL 2020 [facility] [address] [place] [address] 06779 CHEM 14 (METABOLIC PANEL) 38286 Calcium 18643-9 9.1 mg/dL 2020 [facility] [address] [place] [address] 64861 CHEM 14 (METABOLIC PANEL) 96112 Corrected Calcium 16151-5 9.7 mg/dL 01/30 [facility] [address] [place] [address] 62636 VITAMIN B-12 73967 Vitamin B12 2132-9 383 pg/mL 01/30 [facility] [address] [place] [address] TSH 84578 TSH 62821-2 1.830 uIU/mL 2020 [facility] [address] [place] [address] COMPLETE CBC W/ DIFF WBC 19988 WBC 6690-2 7.5 K/ul 2020 [facility] [address] [place] [address] COMPLETE CBC W/ DIFF WBC 55674 RBC 789-8 4.08 M/uL 2020 [facility] [address] [place] [address] COMPLETE CBC W/ DIFF WBC 72728 Hemoglobin 718-7 11.4 g/dL 2020 [facility] [address] [place] [address] 21854 COMPLETE CBC W/ DIFF WBC 89541 Hematocrit 4544-3 34.6 % 2020 [facility] [address] [place] [address] 39391 COMPLETE CBC W/ DIFF WBC 15901 MCV 787-2 84.7 fL 2020 [facility] [address] [place] [address] 99823 COMPLETE CBC W/ DIFF WBC 71340 MCH 785-6 27.9 pg 2020 [facility] [address] [place] [address] 69717 COMPLETE CBC W/ DIFF WBC 61416 MCHC 786-4 33.0 g/dL 2020 [facility] [address] [place] [address] 12174 COMPLETE CBC W/ DIFF WBC 15952 RDW 788-0 14.3 % 2020 [facility] [address] [place] [address] 50902 COMPLETE CBC W/ DIFF WBC 44434 Platelet Count 777-3 322 K/uL 2020 [facility] [address] [place] [address] 58872 COMPLETE CBC W/ DIFF WBC 50040 MPV 80832-6 8.9 fL 2020 [facility] [address] [place] [address] 20060 COMPLETE CBC W/ DIFF WBC 33242 Neutrophils % 770-8 46.6 % 2020 [facility] [address] [place] [address] 17746 COMPLETE CBC W/ DIFF WBC 20245 Lymphocytes % 736-9 29.7 % 2020 [facility] [address] [place] [address] COMPLETE CBC W/ DIFF WBC 29899 Monocytes % 5905-5 6.4 % 2020 [facility] [address] [place] [address] COMPLETE CBC W/ DIFF WBC 34950 Eosinophils % 713-8 16.7 % 2020 [facility] [address] [place] [address] COMPLETE CBC W/ DIFF WBC 79415 Basophils% 706-2 0.6 % 2020 [facility] [address] [place] [address] COMPLETE CBC W/ DIFF WBC 84491 Absolute Neutrophil 751-8 3495 /ul 2020 [facility] [address] [place] [address] COMPLETE CBC W/ DIFF WBC 97176 Absolute Lymphocyte 80389-4 2228 /ul 2020 [facility] [address] [place] [address] 46652 COMPLETE CBC W/ DIFF WBC 53160 Absolute Monocyte 742-7 480 /ul 2020 [facility] [address] [place] [address] COMPLETE CBC W/ DIFF WBC 12308 Absolute Eosinophil 711-2 1253 /ul 2020 [facility] [address] [place] [address] COMPLETE CBC W/ DIFF WBC 99700 Absolute Basophil 704-7 45 /ul 2020 [facility] [address] [place] [address] PREALBUMIN 78871 Prealbumin 18461-3 22 mg/dL 2020 [facility] [address] [place] [address] FOLATE 03791 Folate 2284-8 12.0 ng/mL 2020 [facility] [address] [place] [address] 36366 [id number] IN [facility]8-4 Glyco HGB A1C 68697-0 5.3 % 2020 [facility] [address] [place] [address] [id number] IN [facility]8 eAG 95701-7 105 mg/dL 2020 [facility] [address] [place] [address] PREALBUMIN 10622 Prealbumin 60874-5 32 mg/dL 2020 [facility] [address] [place] [address] CHEM 14 (METABOLIC PANEL) 28503 Glucose 2345-7 153 mg/dL 2020 [facility] [address] [place] [address] CHEM 14 (METABOLIC PANEL) 79886 BUN 3094-0 15 mg/dL 2020 [facility] [address] [place] [address] CHEM 14 (METABOLIC PANEL) 30013 Creatinine 2160-0 0.7 mg/dL 2020 [facility] [address] [place] [address] CHEM 14 (METABOLIC PANEL) 90943 BUN/Creat Ratio 3097-3 21.4 2020 [facility] [address] [place] [address] CHEM 14 (METABOLIC PANEL) 77888 GFR Estimated 03857-7 95 mL/min/1.73m 2 2020 [facility] [address] [place] [address] CHEM 14 (METABOLIC PANEL) 18604 Sodium 2951-2 139 mmol/L 2020 [facility] [address] [place] [address] 58735 CHEM 14 (METABOLIC PANEL) 04235 GFR Estimated for Americans 42434-9 115 mL/min/1.73m 2 2020 [facility] [address] [place] [address] 33592 CHEM 14 (METABOLIC PANEL) 34312 Potassium 2823-3 3.7 mmol/L [address] [facility] [address] [place] [address] 90402 CHEM 14 (METABOLIC PANEL) 62354 Chloride 2075-0 102 mmol/L 2020 [facility] [address] [place] [address] 29287 CHEM 14 (METABOLIC PANEL) 75613 Total CO2 2028-9 29 mmol/L [address] [facility] [address] [place] [address] 06925 CHEM 14 (METABOLIC PANEL) 81196 Anion Gap 1863-0 11.7 mEq/L 2020 [facility] [address] [place] [address] CHEM 14 (METABOLIC PANEL) 29391 Calculated Serum Osmolality 75103-0 292 mOsm/kg 2020 [facility] [address] [place] [address] 05685 CHEM 14 (METABOLIC PANEL) 16248 Albumin 24291-6 3.7 g/dL [address] [facility] [address] [place] [address] 29463 CHEM 14 (METABOLIC PANEL) 69487 Total Protein 2885-2 6.9 g/dL 2020 [facility] [address] [place] [address] CHEM 14 (METABOLIC PANEL) 60332 Globulin 2336-6 3.2 g/dL 2020 [facility] [address] [place] [address] CHEM 14 (METABOLIC PANEL) 14226 Albumin/Globulin Ratio 1759-0 1.2 2020 [facility] [address] [place] [address] CHEM 14 (METABOLIC PANEL) 72162 ALK PHOS 6768-6 66.00 U/L 2020 [facility] [address] [place] [address] CHEM 14 (METABOLIC PANEL) 98635 SGOT/AST 1920-8 21 U/L 2020 [facility] [address] [place] [address] CHEM 14 (METABOLIC PANEL) 04374 SGPT/ALT 1743-4 34 U/L 2020 [facility] [address] [place] [address] CHEM 14 (METABOLIC PANEL) 89429 Total Bilirubin 1975-2 0.3 mg/dL 2020 [facility] [address] [place] [address] CHEM 14 (METABOLIC PANEL) 82886 Calcium 90348-3 9.0 mg/dL 2020 [facility] [address] [place] [address] CHEM 14 (METABOLIC PANEL) 75802 Corrected Calcium 96076-9 9.4 mg/dL 11/03 [facility] [address] [place] [address] MAGNESIUM 88639 Magnesium 96850-2 1.6 mg/dL 2020 [facility] [address] [place] [address] [id number] IN 4548-4 Glyco HGB A1C 37795-5 5.6 % 2020 [facility] [address] [place] [address] [id number] IN 4548-4 eAG 14818-1 114 mg/dL 2020 [facility] [address] [place] [address] No Orders No Orders No Orders 0 2020 [facility] [address] [place] [address] Reflex Molecular UTI Test RMUTI Molecular UTI Test SEE ATTACHMENT APPROVAL MESSAGE 2019 [facility] [address] [place] [address] PTH 81442 PTH 2731-8 62.8 pg/mL 2019 [facility] [address] [place] [address] [id number] IN [facility]8-4 Glyco HGB A1C 40652-5 SEE COMMENT % 2019 [facility] [address] [place] [address] [id number] IN [facility]8 eAG 26226-4 SEE COMMENT mg/dL 2019 [facility] [address] [place] [address] CHEM 14 (METABOLIC PANEL) 69320 Glucose 2345-7 100 mg/dL 2019 [facility] [address] [place] [address] CHEM 14 (METABOLIC PANEL) 80575 BUN 3094-0 12 mg/dL 2019 [facility] [address] [place] [address] CHEM 14 (METABOLIC PANEL) 36084 Creatinine 2160-0 0.8 mg/dL 2019 [facility] [address] [place] [address] CHEM 14 (METABOLIC PANEL) 85156 BUN/Creat Ratio 3097-3 14.9 2019 [facility] [address] [place] [address] CHEM 14 (METABOLIC PANEL) 62471 GFR Estimated 72842-5 81 mL/min/1.73m 2 2019 [facility] [address] [place] [address] 79008 CHEM 14 (METABOLIC PANEL) 90693 Sodium 2951-2 140 mmol/L 2019 [facility] [address] [place] [address] CHEM 14 (METABOLIC PANEL) 28616 GFR Estimated for Americans 13426-4 98 mL/min/1.73m 2 2019 [facility] [address] [place] [address] CHEM 14 (METABOLIC PANEL) 01438 Potassium 2823-3 4.2 mmol/L 2019 [facility] [address] [place] [address] CHEM 14 (METABOLIC PANEL) 76643 Chloride 2075-0 103 mmol/L 2019 [facility] [address] [place] [address] CHEM 14 (METABOLIC PANEL) 59832 Total CO2 2028-9 24 mmol/L 2019 [facility] [address] [place] [address] CHEM 14 (METABOLIC PANEL) 67097 Calculated Serum Osmolality 93294-1 290 mOsm/kg 2019 [facility] [address] [place] [address] CHEM 14 (METABOLIC PANEL) 34381 Anion Gap 1863-0 17.2 mEq/L 2019 [facility] [address] [place] [address] CHEM 14 (METABOLIC PANEL) 60476 Albumin 39804-4 4.0 g/dL 2019 [facility] [address] [place] [address] CHEM 14 (METABOLIC PANEL) 84047 Total Protein 2885-2 7.7 g/dL 2019 [facility] [address] [place] [address] CHEM 14 (METABOLIC PANEL) 50404 Globulin 2336-6 3.7 g/dL 2019 [facility] [address] [place] [address] CHEM 14 (METABOLIC PANEL) 24984 Albumin/Globulin Ratio 1759-0 1.1 2019 [facility] [address] [place] [address] CHEM 14 (METABOLIC PANEL) 06081 ALK PHOS 6768-6 75.00 U/L 2019 [facility] [address] [place] [address] CHEM 14 (METABOLIC PANEL) 17185 SGOT/AST 1920-8 24 U/L 2019 [facility] [address] [place] [address] CHEM 14 (METABOLIC PANEL) 25627 SGPT/ALT 1743-4 36 U/L 2019 [facility] [address] [place] [address] CHEM 14 (METABOLIC PANEL) 65976 Total Bilirubin 1975-2 0.5 mg/dL 2019 [facility] [address] [place] [address] CHEM 14 (METABOLIC PANEL) 38993 Calcium 33528-2 9.4 mg/dL 2019 [facility] [address] [place] [address] CHEM 14 (METABOLIC PANEL) 07624 Corrected Calcium 37319-3 9.6 mg/dL 09/27 [facility] [address] [place] [address] Reflex UA to Molecular UTI Test 56221L Glucose 2345-7 SEE COMMENT mg/dL 2019 [facility] [address] [place] [address] Reflex UA to Molecular UTI Test 42400B Protein SEE COMMENT mg/dL 2019 [facility] [address] [place] [address] Reflex UA to Molecular UTI Test 13938R Bilirubin SEE COMMENT mg/dL 2019 [facility] [address] [place] [address] Reflex UA to Molecular UTI Test 71709J Urobilinogen SEE COMMENT mg/dL 2019 [facility] [address] [place] [address] Reflex UA to Molecular UTI Test 08962I Ph SEE COMMENT 2019 [facility] [address] [place] [address] Reflex UA to Molecular UTI Test 75465T Blood SEE COMMENT mg/dL 2019 [facility] [address] [place] [address] Reflex UA to Molecular UTI Test 97578Y Ketones SEE COMMENT mg/dL 2019 [facility] [address] [place] [address] Reflex UA to Molecular UTI Test 59590X Nitrite SEE COMMENT 2019 [facility] [address] [place] [address] Reflex UA to Molecular UTI Test 36405X Leukocytes SEE COMMENT WBCs/uL 2019 [facility] [address] [place] [address] Reflex UA to Molecular UTI Test 16704X Clarity SEE COMMENT 2019 [facility] [address] [place] [address] Reflex UA to Molecular UTI Test 00193M Specific Virgil SEE COMMENT 2019 [facility] [address] [place] [address] Reflex UA to Molecular UTI Test 27979T Color SEE COMMENT 2019 [facility] [address] [place] [address] Reflex UA to Molecular UTI Test 02367V Ascorbic Acid SEE COMMENT mg/dL 2019 [facility] [address] [place] [address] MICROALBUMIN (URINE) 94091 Microalbumin 17922-0 2.7 mg/dL 2019 [facility] [address] [address] MICROALBUMIN (URINE) 40708 Microalbumin/Crea tinine Ratio 92314-9 11 MCG/MGCREAT 2019 [facility] [address] [place] [address] MICROALBUMIN (URINE) 21843 Urine Creatinine 2161-8 235.00 mg/dL 2019 [facility] [address] [address] VITAMIN B-12 17086 Vitamin B12 2132-9 299 pg/mL 06/13 [facility] [address] [place] [address] DIRECT LDL - CHOL 09783 LDL-Direct 40859-3 103 mg/dL 0 2019 [facility] [address] [place] [address] PREALBUMIN 25990 Prealbumin 29833-0 30 mg/dL 2019 [facility] [address] [place] [address] TSH 08713 TSH 71335-0 0.731 uIU/mL 2019 [facility] [address] [place] [address] TRIGLYCERIDES 31227 Triglycerides 2571-8 174 mg/dL 2019 [facility] [address] [place] [address] TRIGLYCERIDES 63503 VLDL 78836-9 35 mg/dL 2019 [facility] [address] [place] [address] SLIDE SLIDE_SCAN Platelet Estimate 9317-9 Normal 0 2019 [facility] [address] [place] [address] SLIDE SLIDE_SCAN Poikilocytosis 779-9 2+ 06/03 [facility] [address] [place] [address] SLIDE SLIDE_SCAN Echinocytes 7790-9 1+ 2019 [facility] [address] [place] [address] SLIDE SLIDE_SCAN Elliptocytes 77593-9 1+ 2019 [facility] [address] [place] [address] [id number] IN [facility] Glyco HGB A1C 33485-2 5.5 % 2019 [facility] [address] [place] [address] [id number] IN [facility]8 eAG 51956-6 111 mg/dL 2019 [facility] [address] [place] [address] COMPLETE CBC W/ DIFF WBC 22083 WBC 6690-2 12.5 K/ul 2019 [facility] [address] [place] [address] COMPLETE CBC W/ DIFF WBC 23506 RBC 789-8 4.34 M/uL 2019 [facility] [address] [place] [address] COMPLETE CBC W/ DIFF WBC 94832 Hemoglobin 718-7 12.0 g/dL 2019 [facility] [address] [place] [address] COMPLETE CBC W/ DIFF WBC 76723 Hematocrit 4544-3 38.8 % 2019 [facility] [address] [place] [address] COMPLETE CBC W/ DIFF WBC 98329 MCV 787-2 89.5 fL 2019 [facility] [address] [place] [address] COMPLETE CBC W/ DIFF WBC 60604 MCH 785-6 27.8 pg 2019 [facility] [address] [place] [address] COMPLETE CBC W/ DIFF WBC 28157 MCHC 786-4 31.0 g/dL 2019 [facility] [address] [place] [address] COMPLETE CBC W/ DIFF WBC 81187 RDW 788-0 16.0 % 2019 [facility] [address] [place] [address] COMPLETE CBC W/ DIFF WBC 12684 Platelet Count 777-3 360 K/uL 2019 [facility] [address] [place] [address] COMPLETE CBC W/ DIFF WBC 16552 MPV 33435-1 10.0 fL 2019 [facility] [address] [place] [address] COMPLETE CBC W/ DIFF WBC 71230 Neutrophils % 770-8 84.6 % 2019 [facility] [address] [place] [address] COMPLETE CBC W/ DIFF WBC 46042 Lymphocytes % 736-9 11.4 % 2019 [facility] [address] [place] [address] COMPLETE CBC W/ DIFF WBC 46068 Monocytes % 5905-5 3.3 % 2019 [facility] [address] [place] [address] COMPLETE CBC W/ DIFF WBC 92744 Eosinophils % 713-8 0.6 % 2019 [facility] [address] [place] [address] COMPLETE CBC W/ DIFF WBC 15240 Basophils% 706-2 0.1 % 2019 [facility] [address] [place] [address] COMPLETE CBC W/ DIFF WBC 10619 Absolute Neutrophil 751-8 97541 /ul 2019 [facility] [address] [place] [address] COMPLETE CBC W/ DIFF WBC 07813 Absolute Lymphocyte 98721-7 1425 /ul 2019 [facility] [address] [place] [address] COMPLETE CBC W/ DIFF WBC 15347 Absolute Monocyte 742-7 413 /ul 2019 [facility] [address] [place] [address] COMPLETE CBC W/ DIFF WBC 76576 Absolute Eosinophil 711-2 75 /ul 2019 [facility] [address] [place] [address] COMPLETE CBC W/ DIFF WBC 52704 Absolute Basophil 704-7 13 /ul 2019 [facility] [address] [place] [address] CHOLESTEROL 20513 Cholesterol 2093-3 162 mg/dL 2019 [facility] [address] [place] [address] CHEM 14 (METABOLIC PANEL) 79127 Glucose 2345-7 94 mg/dL 2019 [facility] [address] [place] [address] CHEM 14 (METABOLIC PANEL) 90466 BUN 3094-0 21 mg/dL 2019 [facility] [address] [place] [address] CHEM 14 (METABOLIC PANEL) 02780 Creatinine 2160-0 0.8 mg/dL 2019 [facility] [address] [place] [address] 70660 CHEM 14 (METABOLIC PANEL) 26431 BUN/Creat Ratio 3097-3 26.1 2019 [facility] [address] [place] [address] 71528 CHEM 14 (METABOLIC PANEL) 45697 GFR Estimated 40945-2 81 mL/min/1.73m 2 2019 [facility] [address] [place] [address] 10923 CHEM 14 (METABOLIC PANEL) 67450 Sodium 2951-2 141 mmol/L 2019 [facility] [address] [place] [address] 41103 CHEM 14 (METABOLIC PANEL) 66789 GFR Estimated for Americans 68542-1 98 mL/min/1.73m 2 2019 [facility] [address] [place] [address] CHEM 14 (METABOLIC PANEL) 69571 Potassium 2823-3 4.4 mmol/L 2019 [facility] [address] [place] [address] CHEM 14 (METABOLIC PANEL) 51229 Chloride 2075-0 108 mmol/L 2019 [facility] [address] [place] [address] CHEM 14 (METABOLIC PANEL) 48912 Total CO2 2028-9 25 mmol/L 2019 [facility] [address] [place] [address] 96986 CHEM 14 (METABOLIC PANEL) 93637 Calculated Serum Osmolality 20375-7 295 mOsm/kg 2019 [facility] [address] [place] [address] CHEM 14 (METABOLIC PANEL) 24601 Anion Gap 1863-0 12.4 mEq/L 2019 [facility] [address] [place] [address] CHEM 14 (METABOLIC PANEL) 66207 Albumin 80655-2 3.8 g/dL 2019 [facility] [address] [place] [address] CHEM 14 (METABOLIC PANEL) 08042 Total Protein 2885-2 7.1 g/dL 2019 [facility] [address] [place] [address] CHEM 14 (METABOLIC PANEL) 51630 Globulin 2336-6 3.3 g/dL 2019 [facility] [address] [place] [address] 82700 CHEM 14 (METABOLIC PANEL) 95569 Albumin/Globulin Ratio 1759-0 1.2 2019 [facility] [address] [place] [address] 57869 CHEM 14 (METABOLIC PANEL) 40290 ALK PHOS 6768-6 77.00 U/L 2019 [facility] [address] [place] [address] CHEM 14 (METABOLIC PANEL) 79265 SGOT/AST 1920-8 9 U/L 2019 [facility] [address] [place] [address] 84993 CHEM 14 (METABOLIC PANEL) 19971 SGPT/ALT 1743-4 22 U/L 2019 [facility] [address] [place] [address] CHEM 14 (METABOLIC PANEL) 42326 Total Bilirubin 1975-2 0.3 mg/dL 2019 [facility] [address] [place] [address] CHEM 14 (METABOLIC PANEL) 73370 Calcium 17262-1 9.2 mg/dL 2019 [facility] [address] [place] [address] CHEM 14 (METABOLIC PANEL) 77301 Corrected Calcium 89573-5 9.5 mg/dL 06/13 [facility] [address] [place] [address] 31048 VITAMIN D 29785 Vitamin D 40698-8 37.1 ng/mL 2019 [facility] [address] [place] [address] HDL - CHOL 40144 HDL 2085-9 37 mg/dL 2019 [facility] [address] [place] [address] HDL - CHOL 83475 CHD 28354-2 23 % 2019 [facility] [address] [place] [address] No Orders No Orders No Orders 0 2019 [facility] [address] [place] [address] [id number] IN [facility]84 Glyco HGB A1C 93085-8 5.6 % 2019 [facility] [address] [place] [address] [id number] IN [facility]4 eAG 95794-2 114 mg/dL 2019 [facility] [address] [place] [address] CHEM 14 (METABOLIC PANEL) 10938 Glucose 2345-7 99 mg/dL 2019 [facility] [address] [place] [address] CHEM 14 (METABOLIC PANEL) 49460 BUN 3094-0 16 mg/dL 2019 [facility] [address] [place] [address] CHEM 14 (METABOLIC PANEL) 29602 Creatinine 2160-0 0.6 mg/dL 2019 [facility] [address] [place] [address] CHEM 14 (METABOLIC PANEL) 16802 BUN/Creat Ratio 3097-3 25.8 2019 [facility] [address] [place] [address] CHEM 14 (METABOLIC PANEL) 02290 GFR Estimated 82604-5 110 mL/min/1.73m 2 2019 [facility] [address] [place] [address] CHEM 14 (METABOLIC PANEL) 11704 GFR Estimated for Americans 68363-2 133 mL/min/1.73m 2 2019 [facility] [address] [place] [address] CHEM 14 (METABOLIC PANEL) 06555 Sodium 2951-2 138 mmol/L 2019 [facility] [address] [place] [address] CHEM 14 (METABOLIC PANEL) 28686 Potassium 2823-3 3.8 mmol/L 2019 [facility] [address] [place] [address] CHEM 14 (METABOLIC PANEL) 10193 Chloride 2075-0 103 mmol/L 2019 [facility] [address] [place] [address] 83266 CHEM 14 (METABOLIC PANEL) 95082 Total CO2 2028-9 26 mmol/L 2019 [facility] [address] [place] [address] 59187 CHEM 14 (METABOLIC PANEL) 69752 Anion Gap 1863-0 12.8 mEq/L 2019 [facility] [address] [place] [address] 82666 CHEM 14 (METABOLIC PANEL) 35878 Calculated Serum Osmolality 80086-2 287 mOsm/kg 2019 [facility] [address] [place] [address] 17836 CHEM 14 (METABOLIC PANEL) 33250 Albumin 38198-0 3.9 g/dL 2019 [facility] [address] [place] [address] 31500 CHEM 14 (METABOLIC PANEL) 50707 Total Protein 2885-2 7.3 g/dL 2019 [facility] [address] [place] [address] 48795 CHEM 14 (METABOLIC PANEL) 17185 Globulin 2336-6 3.4 g/dL 2019 [facility] [address] [place] [address] 28504 CHEM 14 (METABOLIC PANEL) 19819 Albumin/Globulin Ratio 1759-0 1.1 2019 [facility] [address] [place] [address] 88795 CHEM 14 (METABOLIC PANEL) 11248 ALK PHOS 6768-6 74.00 U/L 2019 [facility] [address] [place] [address] 44069 CHEM 14 (METABOLIC PANEL) 20779 SGOT/AST 1920-8 15 U/L 2019 [facility] [address] [place] [address] 35870 CHEM 14 (METABOLIC PANEL) 44916 SGPT/ALT 1743-4 21 U/L 2019 [facility] [address] [place] [address] 46539 CHEM 14 (METABOLIC PANEL) 84738 Total Bilirubin 1975-2 0.4 mg/dL 2019 [facility] [address] [place] [address] 56071 CHEM 14 (METABOLIC PANEL) 26647 Calcium 87891-3 8.9 mg/dL 2019 [facility] [address] [place] [address] 82303 CHEM 14 (METABOLIC PANEL) 64405 Corrected Calcium 12018-6 9.1 mg/dL 04/14 [facility] [address] [place] [address] PHOSPHORUS 01847 Phosphorus 2777-1 2.9 mg/dL 2019 [facility] [address] [place] [address] COMPLETE CBC W/ DIFF WBC 98625 WBC 6690-2 10.4 K/ul 2019 [facility] [address] [place] [address] COMPLETE CBC W/ DIFF WBC 70006 RBC 789-8 4.34 M/uL 2019 [facility] [address] [place] [address] COMPLETE CBC W/ DIFF WBC 70559 Hemoglobin 718-7 12.2 g/dL 2019 [facility] [address] [place] [address] COMPLETE CBC W/ DIFF WBC 18152 Hematocrit 4544-3 36.0 % 2019 [facility] [address] [place] [address] COMPLETE CBC W/ DIFF WBC 62324 MCV 787-2 83.0 fL 2019 [facility] [address] [place] [address] COMPLETE CBC W/ DIFF WBC 67955 MCH 785-6 28.2 pg 2019 [facility] [address] [place] [address] COMPLETE CBC W/ DIFF WBC 82705 MCHC 786-4 34.0 g/dL 2019 [facility] [address] [place] [address] COMPLETE CBC W/ DIFF WBC 57091 RDW 788-0 15.4 % 2019 [facility] [address] [place] [address] COMPLETE CBC W/ DIFF WBC 30701 Platelet Count 777-3 329 K/uL 2019 [facility] [address] [place] [address] COMPLETE CBC W/ DIFF WBC 17256 MPV 93460-5 8.9 fL 2019 [facility] [address] [place] [address] COMPLETE CBC W/ DIFF WBC 32641 Neutrophils % 770-8 69.6 % 2019 [facility] [address] [place] [address] COMPLETE CBC W/ DIFF WBC 58015 Lymphocytes % 736-9 23.7 % 2019 [facility] [address] [place] [address] COMPLETE CBC W/ DIFF WBC 82740 Monocytes % 5905-5 6.0 % 2019 [facility] [address] [place] [address] COMPLETE CBC W/ DIFF WBC 38355 Eosinophils % 713-8 0.2 % 2019 [facility] [address] [place] [address] COMPLETE CBC W/ DIFF WBC 16828 Basophils% 706-2 0.5 % 2019 [facility] [address] [place] [address] COMPLETE CBC W/ DIFF WBC 18125 Absolute Neutrophil 751-8 7238 /ul 2019 [facility] [address] [place] [address] COMPLETE CBC W/ DIFF WBC 46897 Absolute Lymphocyte 60615-9 2465 /ul 2019 [facility] [address] [place] [address] COMPLETE CBC W/ DIFF WBC 71113 Absolute Monocyte 742-7 624 /ul 2019 [facility] [address] [place] [address] COMPLETE CBC W/ DIFF WBC 88527 Absolute Eosinophil 711-2 21 /ul 2019 [facility] [address] [place] [address] COMPLETE CBC W/ DIFF WBC 90951 Absolute Basophil 704-7 52 /ul 2019 [facility] [address] [place] [address] MAGNESIUM 33942 Magnesium 87276-6 2.3 mg/dL 2019 [facility] [address] [place] [address] URIC ACID 64137 Uric Acid 3084-1 6.1 mg/dL 2019 [facility] [address] [place] [address] COMPLETE CBC W/ DIFF WBC 82330 WBC 6690-2 10.0 K/ul 2019 [facility] [address] [place] [address] COMPLETE CBC W/ DIFF WBC 78993 RBC 789-8 4.41 M/uL 2019 [facility] [address] [place] [address] COMPLETE CBC W/ DIFF WBC 87335 Hemoglobin 718-7 12.1 g/dL 2019 [facility] [address] [place] [address] COMPLETE CBC W/ DIFF WBC 49065 Hematocrit 4544-3 36.6 % 2019 [facility] [address] [place] [address] COMPLETE CBC W/ DIFF WBC 57545 MCV 787-2 83.1 fL 2019 [facility] [address] [place] [address] COMPLETE CBC W/ DIFF WBC 78820 MCH 785-6 27.5 pg 2019 [facility] [address] [place] [address] COMPLETE CBC W/ DIFF WBC 27602 MCHC 786-4 33.1 g/dL 2019 [facility] [address] [place] [address] COMPLETE CBC W/ DIFF WBC 83879 RDW 788-0 14.6 % 2019 [facility] [address] [place] [address] COMPLETE CBC W/ DIFF WBC 82129 Platelet Count 777-3 356 K/uL 2019 [facility] [address] [place] [address] COMPLETE CBC W/ DIFF WBC 63861 MPV 48752-3 8.8 fL 2019 [facility] [address] [place] [address] COMPLETE CBC W/ DIFF WBC 37317 Neutrophils % 770-8 71.7 % 2019 [facility] [address] [place] [address] COMPLETE CBC W/ DIFF WBC 47046 Lymphocytes % 736-9 22.0 % 2019 [facility] [address] [place] [address] COMPLETE CBC W/ DIFF WBC 81387 Monocytes % 5905-5 4.9 % 2019 [facility] [address] [place] [address] COMPLETE CBC W/ DIFF WBC 27793 Eosinophils % 713-8 0.7 % 2019 [facility] [address] [place] [address] 97006 COMPLETE CBC W/ DIFF WBC 68698 Basophils% 706-2 0.7 % 2019 [facility] [address] [place] [address] COMPLETE CBC W/ DIFF WBC 68223 Absolute Neutrophil 751-8 7170 /ul 2019 [facility] [address] [place] [address] COMPLETE CBC W/ DIFF WBC 61361 Absolute Lymphocyte 48856-1 2200 /ul 2019 [facility] [address] [place] [address] COMPLETE CBC W/ DIFF WBC 04784 Absolute Monocyte 742-7 490 /ul 2019 [facility] [address] [place] [address] 11209 COMPLETE CBC W/ DIFF WBC 96392 Absolute Eosinophil 711-2 70 /ul 2019 [facility] [address] [place] [address] COMPLETE CBC W/ DIFF WBC 57469 Absolute Basophil 704-7 70 /ul 2019 [facility] [address] [place] [address] [id number] [place] 4548-4 Glyco HGB A1C 25161-0 6.0 % 2019 [facility] [address] [place] [address] [id number] IN 4548-4 eAG 97054-0 126 mg/dL 2019 [facility] [address] [place] [address] CHEM 14 (METABOLIC PANEL) 11152 Glucose 2345-7 117 mg/dL 2019 [facility] [address] [place] [address] CHEM 14 (METABOLIC PANEL) 69385 BUN 3094-0 9 mg/dL 2019 [facility] [address] [place] [address] CHEM 14 (METABOLIC PANEL) 28268 Creatinine 2160-0 0.7 mg/dL 2019 [facility] [address] [place] [address] CHEM 14 (METABOLIC PANEL) 87225 BUN/Creat Ratio 3097-3 12.2 2019 [facility] [address] [place] [address] CHEM 14 (METABOLIC PANEL) 80264 GFR Estimated 60019-2 90 mL/min/1.73m 2 2019 [facility] [address] [place] [address] CHEM 14 (METABOLIC PANEL) 02422 GFR Estimated for Americans 44612-7 109 mL/min/1.73m 2 2019 [facility] [address] [place] [address] CHEM 14 (METABOLIC PANEL) 18107 Sodium 2951-2 140 mmol/L 2019 [facility] [address] [place] [address] CHEM 14 (METABOLIC PANEL) 88675 Potassium 2823-3 4.2 mmol/L 2019 [facility] [address] [place] [address] CHEM 14 (METABOLIC PANEL) 01962 Chloride 2075-0 107 mmol/L 2019 [facility] [address] [place] [address] CHEM 14 (METABOLIC PANEL) 76665 Total CO2 2028-9 28 mmol/L 2019 [facility] [address] [place] [address] CHEM 14 (METABOLIC PANEL) 81767 Calculated Serum Osmolality 35563-9 290 mOsm/kg 2019 [facility] [address] [place] [address] CHEM 14 (METABOLIC PANEL) 13118 Anion Gap 1863-0 9.2 mEq/L 2019 [facility] [address] [place] [address] CHEM 14 (METABOLIC PANEL) 98993 Albumin 69490-3 3.4 g/dL 2019 [facility] [address] [place] [address] CHEM 14 (METABOLIC PANEL) 99507 Total Protein 2885-2 7.0 g/dL 2019 [facility] [address] [place] [address] CHEM 14 (METABOLIC PANEL) 48620 Globulin 2336-6 3.6 g/dL 2019 [facility] [address] [place] [address] CHEM 14 (METABOLIC PANEL) 31036 Albumin/Globulin Ratio 1759-0 0.9 2019 [facility] [address] [place] [address] 90294 CHEM 14 (METABOLIC PANEL) 17154 ALK PHOS 6768-6 90.00 U/L 2019 [facility] [address] [place] [address] CHEM 14 (METABOLIC PANEL) 66592 SGOT/AST 1920-8 15 U/L 2019 [facility] [address] [place] [address] CHEM 14 (METABOLIC PANEL) 91142 SGPT/ALT 1743-4 34 U/L 2019 [facility] [address] [place] [address] 71167 CHEM 14 (METABOLIC PANEL) 59788 Total Bilirubin 1975-2 0.6 mg/dL 2019 [facility] [address] [place] [address] CHEM 14 (METABOLIC PANEL) 13792 Calcium 83899-6 9.2 mg/dL 2019 [facility] [address] [place] [address] CHEM 14 (METABOLIC PANEL) 73598 Corrected Calcium 37289-8 9.8 mg/dL 10/18 [facility] [address] [place] [address] TSH 54622 TSH 17572-4 1.380 uIU/mL 2019 [facility] [address] [place] [address] PREALBUMIN 61239 Prealbumin 98908-6 23 mg/dL 2019 [facility] [address] [facility] [place] [address] COMPLETE CBC W/ DIFF WBC 54482 WBC 6690-2 8.0 K/ul 2018 [facility] [address] [place] [address] COMPLETE CBC W/ DIFF WBC 75005 RBC 789-8 4.24 M/uL 2018 [facility] [address] [place] [address] COMPLETE CBC W/ DIFF WBC 38153 Hemoglobin 718-7 11.8 g/dL 2018 [facility] [address] [place] [address] COMPLETE CBC W/ DIFF WBC 87145 Hematocrit 4544-3 35.8 % 2018 [facility] [address] [place] [address] COMPLETE CBC W/ DIFF WBC 60196 MCV 787-2 84.4 fL 2018 [facility] [address] [place] [address] 35704 COMPLETE CBC W/ DIFF WBC 01118 MCH 785-6 27.9 pg 2018 [facility] [address] [place] [address] 81479 COMPLETE CBC W/ DIFF WBC 68380 MCHC 786-4 33.0 g/dL 2018 [facility] [address] [place] [address] 54681 COMPLETE CBC W/ DIFF WBC 77186 RDW 788-0 15.5 % 2018 [facility] [address] [place] [address] 79748 COMPLETE CBC W/ DIFF WBC 77454 Platelet Count 777-3 353 K/uL 2018 [facility] [address] [place] [address] 34316 COMPLETE CBC W/ DIFF WBC 75130 MPV 98262-2 8.9 fL 2018 [facility] [address] [place] [address] 52195 COMPLETE CBC W/ DIFF WBC 53839 Neutrophils % 770-8 62.5 % 2018 [facility] [address] [place] [address] 70071 COMPLETE CBC W/ DIFF WBC 87752 Lymphocytes % 736-9 31.4 % 2018 [facility] [address] [place] [address] 68613 COMPLETE CBC W/ DIFF WBC 05536 Monocytes % 5905-5 5.1 % 2018 [facility] [address] [place] [address] COMPLETE CBC W/ DIFF WBC 18949 Eosinophils % 713-8 0.5 % 2018 [facility] [address] [place] [address] COMPLETE CBC W/ DIFF WBC 83115 Basophils% 706-2 0.5 % 2018 [facility] [address] [place] [address] COMPLETE CBC W/ DIFF WBC 55080 Absolute Neutrophil 751-8 5000 /ul 2018 [facility] [address] [place] [address] COMPLETE CBC W/ DIFF WBC 29294 Absolute Lymphocyte 62644-9 2512 /ul 2018 [facility] [address] [place] [address] COMPLETE CBC W/ DIFF WBC 31755 Absolute Monocyte 742-7 408 /ul 2018 [facility] [address] [place] [address] COMPLETE CBC W/ DIFF WBC 54743 Absolute Eosinophil 711-2 40 /ul 2018 [facility] [address] [place] [address] 27197 COMPLETE CBC W/ DIFF WBC 55908 Absolute Basophil 704-7 40 /ul 2018 [facility] [address] [place] [address] 22148 MAGNESIUM 69335 Magnesium 99327-1 2.3 mg/dL 2018 [facility] [address] [place] [address] 40932 URIC ACID 42135 Uric Acid 3084-1 6.0 mg/dL 2018 [facility] [address] [place] [address] 84617 PTH 61969 PTH 2731-8 75.9 pg/mL 2018 [facility] [address] [place] [address] 03333 CHEM 14 (METABOLIC PANEL) 80720 Glucose 2345-7 93 mg/dL 2018 [facility] [address] [place] [address] 53355 CHEM 14 (METABOLIC PANEL) 06222 BUN 3094-0 17 mg/dL 2018 [facility] [address] [place] [address] 93136 CHEM 14 (METABOLIC PANEL) 40843 Creatinine 2160-0 0.7 mg/dL 2018 [facility] [address] [place] [address] 82697 CHEM 14 (METABOLIC PANEL) 15631 BUN/Creat Ratio 3097-3 23.5 2018 [facility] [address] [place] [address] 01933 CHEM 14 (METABOLIC PANEL) 70875 GFR Estimated 43576-9 93 mL/min/1.73m 2 2018 [facility] [address] [place] [address] CHEM 14 (METABOLIC PANEL) 46423 GFR Estimated for Americans 99594-4 112 mL/min/1.73m 2 2018 [facility] [address] [place] [address] CHEM 14 (METABOLIC PANEL) 74702 Sodium 2951-2 140 mmol/L 2018 [facility] [address] [place] [address] CHEM 14 (METABOLIC PANEL) 49290 Potassium 2823-3 3.8 mmol/L 2018 [facility] [address] [place] [address] CHEM 14 (METABOLIC PANEL) 78879 Chloride 2075-0 105 mmol/L 2018 [facility] [address] [place] [address] CHEM 14 (METABOLIC PANEL) 57475 Total CO2 2028-9 22 mmol/L 2018 [facility] [address] [place] [address] CHEM 14 (METABOLIC PANEL) 53522 Anion Gap 1863-0 16.8 mEq/L 2018 [facility] [address] [place] [address] CHEM 14 (METABOLIC PANEL) 32256 Calculated Serum Osmolality 60701-9 291 mOsm/kg 2018 [facility] [address] [place] [address] CHEM 14 (METABOLIC PANEL) 25173 Albumin 61640-0 4.0 g/dL 2018 [facility] [address] [place] [address] CHEM 14 (METABOLIC PANEL) 07879 Total Protein 2885-2 7.5 g/dL 2018 [facility] [address] [place] [address] 54187 CHEM 14 (METABOLIC PANEL) 24734 Globulin 2336-6 3.5 g/dL 2018 [facility] [address] [place] [address] CHEM 14 (METABOLIC PANEL) 83503 Albumin/Globulin Ratio 1759-0 1.1 2018 [facility] [address] [place] [address] CHEM 14 (METABOLIC PANEL) 37944 ALK PHOS 6768-6 68.00 U/L 2018 [facility] [address] [place] [address] CHEM 14 (METABOLIC PANEL) 47074 SGOT/AST 1920-8 12 U/L 2018 [facility] [address] [place] [address] CHEM 14 (METABOLIC PANEL) 37035 SGPT/ALT 1743-4 29 U/L 2018 [facility] [address] [place] [address] CHEM 14 (METABOLIC PANEL) 99824 Total Bilirubin 1975-2 0.3 mg/dL 2018 [facility] [address] [place] [address] CHEM 14 (METABOLIC PANEL) 46688 Calcium 82689-5 9.5 mg/dL 2018 [facility] [address] [place] [address] CHEM 14 (METABOLIC PANEL) 40176 Corrected Calcium 38562-9 9.7 mg/dL 07/05 [facility] [address] [place] [address] PHOSPHORUS 78325 Phosphorus 2777-1 3.5 mg/dL 2018 [facility] [address] [place] [address] [id number] [place] 4548-4 Glyco HGB A1C 28078-8 5.6 % 2018 [facility] [address] [place] [address] [id number] IN 4548-4 eAG 19875-5 114 mg/dL 2018 [facility] [address] [place] [address] FREE T-3 64346 FT3 3051-0 1.82 pg/mL 2018 [facility] [address] [place] [address] FREE T-4 02180 FT4 3024-7 1.17 ng/dL 2018 [facility] [address] [place] [address] TRIGLYCERIDES 30053 Triglycerides 2571-8 171 mg/dL 2018 [facility] [address] [place] [address] TRIGLYCERIDES 87759 VLDL 01304-6 34 mg/dL 2018 [facility] [address] [place] [address] HDL - CHOL 31019 HDL 2085-9 37 mg/dL 2018 [facility] [address] [place] [address] HDL - CHOL 04995 CHD 62219-5 19 % 2018 [facility] [address] [place] [address] Homocysteine 13646 Homocysteine 31767-5 8.42 umol/L 2018 [facility] [address] [place] [address] TSH 87869 TSH 15620-9 2.210 uIU/mL 2018 [facility] [address] [place] [address] CHOLESTEROL 86484 Cholesterol 2093-3 200 mg/dL 2018 [facility] [address] [place] [address] MICROALBUMIN (URINE) 64364 Microalbumin 10338-7 0.5 mg/dL 2018 [facility] [address] [place] [address] MICROALBUMIN (URINE) 19048 Microalbumin/Crea tinine Ratio 50500-1 7 MCG/MGCREAT 2018 [facility] [address] [place] [address] MICROALBUMIN (URINE) 57421 Urine Creatinine 2161-8 71.30 mg/dL 2018 [facility] [address] [place] [address] VITAMIN B-12 18100 Vitamin B12 2132-9 445 pg/mL 06/22 [facility] [address] [place] [address] 64231 Direct LDL 05341 LDL-Direct 89479-6 130 mg/dL 2018 [facility] [address] [place] [address] Reflex Molecular UTI Test RMUTI Molecular UTI Test CRITERIA NOT MET FOR MOLECULAR UTI TESTING 2018 [facility] [address] [place] [address] 79829 Reflex UA to Molecular UTI Test 06717H Glucose 2345-7 Negative mg/dL 2018 [facility] [address] [place] [address] 94877 Reflex UA to Molecular UTI Test 02473J Protein Negative mg/dL 2018 [facility] [address] [place] [address] 97418 Reflex UA to Molecular UTI Test 63465P Bilirubin Negative mg/dL 2018 [facility] [address] [place] [address] 15353 Reflex UA to Molecular UTI Test 18818B Urobilinogen Negative mg/dL 2018 [facility] [address] [place] [address] 82142 Reflex UA to Molecular UTI Test 21099G Ph 6.00 2018 [facility] [address] [place] [address] Reflex UA to Molecular UTI Test 50550Q Blood Negative mg/dL 2018 [facility] [address] [place] [address] 73584 Reflex UA to Molecular UTI Test 73190P Ketones Negative mg/dL 2018 [facility] [address] [place] [address] Reflex UA to Molecular UTI Test 14113M Nitrite Negative 2018 [facility] [address] [place] [address] Reflex UA to Molecular UTI Test 11891A Leukocytes 500 WBCs/uL +++ WBCs/uL 2018 [facility] [address] [place] [address] Reflex UA to Molecular UTI Test 07190Q Clarity Slightly-Marianne udy 2018 [facility] [address] [place] [address] Reflex UA to Molecular UTI Test 67822M Specific Virgil 1.013 2018 [facility] [address] [place] [address] Reflex UA to Molecular UTI Test 47769O Color Yellow 2018 [facility] [address] [place] [address] Reflex UA to Molecular UTI Test 90624C Ascorbic Acid Negative mg/dL 2018 [facility] [address] [place] [address] Reflex UA to Molecular UTI Test 06191R Red Blood Cell 1 /HPF #/HPF 2018 [facility] [address] [place] [address] 10336 Reflex UA to Molecular UTI Test 13989T White Blood Cell 4 /HPF #/HPF 2018 [facility] [address] [place] [address] Reflex UA to Molecular UTI Test 39988S SQUAMOUS EPITHELIAL 1 /HPF #/HPF 2018 [facility] [address] [place] [address] 61743 Reflex UA to Molecular UTI Test 16431X Bacteria Trace graded/HPF 2018 [facility] [address] [place] [address] Reflex UA to Molecular UTI Test 52196P Mucous RARE grades/LPF 2018 [facility] [address] [place] [address] PREALBUMIN 48344 Prealbumin 52387-4 28 mg/dL 2018 [facility] [address] [place] [address] NT PROBNP 44086 NT-proBNP 53016-4 121.0 pg/mL 2018 [facility] [address] [place] [address] CHEM 14 (METABOLIC PANEL) 68279 Glucose 2345-7 91 mg/dL 2018 [facility] [address] [place] [address] CHEM 14 (METABOLIC PANEL) 13240 BUN 3094-0 20 mg/dL 2018 [facility] [address] [place] [address] CHEM 14 (METABOLIC PANEL) 25906 Creatinine 2160-0 0.8 mg/dL 2018 [facility] [address] [place] [address] CHEM 14 (METABOLIC PANEL) 22095 BUN/Creat Ratio 3097-3 25.6 2018 [facility] [address] [place] [address] CHEM 14 (METABOLIC PANEL) 65053 GFR Estimated 93732-7 85 mL/min/1.73m 2 2018 [facility] [address] [place] [address] CHEM 14 (METABOLIC PANEL) 14979 Sodium 2951-2 141 mmol/L 2018 [facility] [address] [place] [address] CHEM 14 (METABOLIC PANEL) 71058 GFR Estimated for Americans 05486-7 102 mL/min/1.73m 2 2018 [facility] [address] [place] [address] CHEM 14 (METABOLIC PANEL) 90316 Potassium 2823-3 4.9 mmol/L 2018 [facility] [address] [place] [address] CHEM 14 (METABOLIC PANEL) 61299 Chloride 2075-0 109 mmol/L 2018 [facility] [address] [place] [address] CHEM 14 (METABOLIC PANEL) 38819 Total CO2 2028-9 26 mmol/L 2018 [facility] [address] [place] [address] CHEM 14 (METABOLIC PANEL) 32511 Anion Gap 1863-0 10.9 mEq/L 2018 [facility] [address] [place] [address] CHEM 14 (METABOLIC PANEL) 92663 Calculated Serum Osmolality 11635-7 294 mOsm/kg 2018 [facility] [address] [place] [address] CHEM 14 (METABOLIC PANEL) 34800 Albumin 62697-9 3.6 g/dL 2018 [facility] [address] [place] [address] CHEM 14 (METABOLIC PANEL) 65475 Total Protein 2885-2 7.1 g/dL 2018 [facility] [address] [place] [address] CHEM 14 (METABOLIC PANEL) 39200 Globulin 2336-6 3.5 g/dL 2018 [facility] [address] [place] [address] CHEM 14 (METABOLIC PANEL) 77195 Albumin/Globulin Ratio 1759-0 1.0 2018 [facility] [address] [place] [address] CHEM 14 (METABOLIC PANEL) 12754 ALK PHOS 6768-6 71.00 U/L 2018 [facility] [address] [place] [address] CHEM 14 (METABOLIC PANEL) 02281 SGOT/AST 1920-8 19 U/L 2018 [facility] [address] [place] [address] CHEM 14 (METABOLIC PANEL) 97618 SGPT/ALT 1743-4 28 U/L 2018 [facility] [address] [place] [address] CHEM 14 (METABOLIC PANEL) 24877 Total Bilirubin 1975-2 0.4 mg/dL 2018 [facility] [address] [place] [address] CHEM 14 (METABOLIC PANEL) 92717 Calcium 53129-8 8.9 mg/dL 2018 [facility] [address] [place] [address] CHEM 14 (METABOLIC PANEL) 01722 Corrected Calcium 93117-8 9.4 mg/dL 12/29 [facility] [address] [place] [address] FREE T-4 02442 FT4 3024-7 1.19 ng/dL 2018 [facility] [address] [place] [address] URIC ACID 04453 Uric Acid 3084-1 5.4 mg/dL 2018 [facility] [address] [place] [address] [id number] IN 4548-4 Glyco HGB A1C 93463-0 5.8 % 2018 [facility] [address] [place] [address] [id number] IN 4548-4 eAG 66422-4 120 mg/dL 2018 [facility] [address] [place] [address] PHOSPHORUS 69188 Phosphorus 2777-1 3.3 mg/dL 2017 [facility] [address] [place] [address] MAGNESIUM 59846 Magnesium 59671-4 2.2 mg/dL 2017 [facility] [address] [place] [address] CHEM 14 (METABOLIC PANEL) 66344 Glucose 2345-7 94 mg/dL 2017 [facility] [address] [place] [address] CHEM 14 (METABOLIC PANEL) 80330 BUN 3094-0 8 mg/dL 2017 [facility] [address] [place] [address] CHEM 14 (METABOLIC PANEL) 14116 Creatinine 2160-0 0.7 mg/dL 2017 [facility] [address] [place] [address] CHEM 14 (METABOLIC PANEL) 30649 BUN/Creat Ratio 3097-3 12.2 2017 [facility] [address] [place] [address] CHEM 14 (METABOLIC PANEL) 16998 GFR Estimated 07402-0 104 mL/min/1.73m 2 2017 [facility] [address] [place] [address] CHEM 14 (METABOLIC PANEL) 44310 GFR Estimated for Americans 48701-5 125 mL/min/1.73m 2 2017 [facility] [address] [place] [address] CHEM 14 (METABOLIC PANEL) 92544 Sodium 2951-2 140 mmol/L 2017 [facility] [facility] [address] [place] [address] CHEM 14 (METABOLIC PANEL) 32657 Potassium 2823-3 4.0 mmol/L 2017 [facility] [address] [place] [address] CHEM 14 (METABOLIC PANEL) 02784 Chloride 2075-0 103 mmol/L 2017 [facility] [address] [place] [address] CHEM 14 (METABOLIC PANEL) 41094 Total CO2 2028-9 29 mmol/L 2017 [facility] [address] [place] [address] CHEM 14 (METABOLIC PANEL) 32737 Calculated Serum Osmolality 00801-7 288 mOsm/kg 2017 [facility] [address] [place] [address] CHEM 14 (METABOLIC PANEL) 59071 Anion Gap 1863-0 12.0 mEq/L 2017 [facility] [address] [place] [address] CHEM 14 (METABOLIC PANEL) 17995 Albumin 41854-7 3.7 g/dL 2017 [facility] [address] [place] [address] CHEM 14 (METABOLIC PANEL) 36861 Total Protein 2885-2 7.0 g/dL 2017 [facility] [address] [place] [address] CHEM 14 (METABOLIC PANEL) 79997 Globulin 2336-6 3.3 g/dL 2017 [facility] [address] [place] [address] CHEM 14 (METABOLIC PANEL) 66412 Albumin/Globulin Ratio 1759-0 1.1 2017 [facility] [address] [place] [address] CHEM 14 (METABOLIC PANEL) 70096 ALK PHOS 6768-6 84.00 U/L 2017 [facility] [address] [place] [address] CHEM 14 (METABOLIC PANEL) 67062 SGOT/AST 1920-8 23 U/L 2017 [facility] [address] [place] [address] CHEM 14 (METABOLIC PANEL) 28928 SGPT/ALT 1743-4 69 U/L 2017 [facility] [address] [place] [address] CHEM 14 (METABOLIC PANEL) 67305 Total Bilirubin 1975-2 0.5 mg/dL 2017 [facility] [address] [place] [address] CHEM 14 (METABOLIC PANEL) 24392 Calcium 77861-0 9.3 mg/dL 2017 [facility] [address] [place] [address] CHEM 14 (METABOLIC PANEL) 70447 Corrected Calcium 16992-1 9.7 mg/dL 09/08 [facility] [address] [place] [address] P6J-HAJCWZHRFUEFO IN 4548-4 Glyco HGB A1C 12332-6 5.7 % 2017 [facility] [address] [place] [address] T2A-OQAUOOYYAHQYQ IN 4548-4 eAG 51186-9 117 mg/dL 2017 [facility] [address] [place] [address] VITAMIN D 48007 Vitamin D 14542-2 43.8 ng/mL 2017 [facility] [address] [place] [address] COMPLETE CBC W/ DIFF WBC 34212 WBC 6690-2 8.0 K/ul 2017 [facility] [address] [place] [address] COMPLETE CBC W/ DIFF WBC 53675 RBC 789-8 4.31 M/uL 2017 [facility] [address] [place] [address] COMPLETE CBC W/ DIFF WBC 85544 Hemoglobin 718-7 12.0 g/dL 2017 [facility] [address] [place] [address] COMPLETE CBC W/ DIFF WBC 96929 Hematocrit 4544-3 37.8 % 2017 [facility] [address] [place] [address] COMPLETE CBC W/ DIFF WBC 06448 MCV 787-2 87.7 fL 2017 [facility] [address] [place] [address] COMPLETE CBC W/ DIFF WBC 22891 MCH 785-6 27.9 pg 2017 [facility] [address] [place] [address] COMPLETE CBC W/ DIFF WBC 43633 MCHC 786-4 31.8 g/dL 2017 [facility] [address] [place] [address] COMPLETE CBC W/ DIFF WBC 71772 RDW 788-0 14.6 % 2017 [facility] [address] [place] [address] COMPLETE CBC W/ DIFF WBC 38467 Platelet Count 777-3 346 K/uL 2017 [facility] [address] [place] [address] COMPLETE CBC W/ DIFF WBC 70909 MPV 45951-4 9.2 fL 2017 [facility] [address] [place] [address] COMPLETE CBC W/ DIFF WBC 77200 Neutrophils % 770-8 71.7 % 2017 [facility] [address] [place] [address] COMPLETE CBC W/ DIFF WBC 59815 Lymphocytes % 736-9 23.0 % 2017 [facility] [address] [place] [address] COMPLETE CBC W/ DIFF WBC 57585 Monocytes % 5905-5 4.0 % 2017 [facility] [address] [place] [address] COMPLETE CBC W/ DIFF WBC 49890 Eosinophils % 713-8 1.2 % 2017 [facility] [address] [place] [address] COMPLETE CBC W/ DIFF WBC 60781 Basophils% 706-2 0.1 % 2017 [facility] [address] [place] [address] COMPLETE CBC W/ DIFF WBC 92155 Absolute Neutrophil 751-8 5736 /ul 2017 [facility] [address] [place] [address] COMPLETE CBC W/ DIFF WBC 56516 Absolute Lymphocyte 49615-6 1840 /ul 2017 [facility] [address] [place] [address] COMPLETE CBC W/ DIFF WBC 88674 Absolute Monocyte 742-7 320 /ul 2017 [facility] [address] [place] [address] COMPLETE CBC W/ DIFF WBC 12048 Absolute Eosinophil 711-2 96 /ul 2017 [facility] [address] [place] [address] COMPLETE CBC W/ DIFF WBC 07546 Absolute Basophil 704-7 8 /ul 2017 [facility] [address] [place] [address] PREALBUMIN 05487 Prealbumin 19490-5 22 mg/dL 2017 [facility] [address] [place] [address] NT PROBNP 29673 NT-proBNP 80103-2 <50 pg/mL 2017 [facility] [address] [place] [address] MICROALBUMIN (URINE) 21923 Microalbumin 68639-4 2.2 mg/dL 2017 [facility] [address] [place] [address] MICROALBUMIN (URINE) 84331 Microalbumin/Crea tinine Ratio 80613-6 9 MCG/MGCREAT 2017 [facility] [address] [place] [address] MICROALBUMIN (URINE) 18762 Urine Creatinine 2161-8 235.00 mg/dL 2017 [facility] [address] [place] [address] Manual Diff MDIFF Neutrophils 13534-8 70.0 % 2017 [facility] [address] [place] [address] Manual Diff MDIFF Lymphocytes 28193-0 22.0 % 2017 [facility] [address] [place] [address] Manual Diff MDIFF Monocytes 42010-5 5.0 % 2017 [facility] [address] [place] [address] Manual Diff MDIFF Eosinophils 47917-8 2.0 % 2017 [facility] [address] [place] [address] Manual Diff MDIFF Basophils 26915-0 1.0 % 2017 [facility] [address] [place] [address] Manual Diff MDIFF Absolute Neut 92507-9 7560 /ul 05/05 [facility] [address] [place] [address] Manual Diff MDIFF Absolute Lymph 17335-1 2376 /ul 2017 [facility] [address] [place] [address] Manual Diff MDIFF Absolute [place] 65938-7 540 /ul 05/05 [facility] [address] [place] [address] Manual Diff MDIFF Platelet Estimate 9317-9 Normal 2017 [facility] [address] [place] [address] Manual Diff MDIFF Absolute Eos 12659-0 216 /ul 06/02 [facility] [address] [place] [address] Manual Diff MDIFF Echinocytes 7790-9 2+ 2017 [facility] [address] [place] [address] Manual Diff MDIFF Poikilocytosis 779-9 2+ 2017 [facility] [address] [place] [address] Manual Diff MDIFF Absolute Baso 71386-3 108 /ul 05/05 [facility] [address] [place] [address] CHEM 14 (METABOLIC PANEL) 64639 Glucose 2345-7 89 mg/dL 2017 [facility] [address] [place] [address] CHEM 14 (METABOLIC PANEL) 82316 BUN 3094-0 18 mg/dL 2017 [facility] [address] [place] [address] CHEM 14 (METABOLIC PANEL) 67045 Creatinine 2160-0 0.7 mg/dL 2017 [facility] [address] [place] [address] CHEM 14 (METABOLIC PANEL) 64211 BUN/Creat Ratio 3097-3 24.6 2017 [facility] [address] [place] [address] CHEM 14 (METABOLIC PANEL) 00488 GFR Estimated 83688-2 92 ML/MIN 2017 [facility] [address] [place] [address] CHEM 14 (METABOLIC PANEL) 86259 GFR Estimated for Americans 23032-5 111 ML/MIN 2017 [facility] [address] [place] [address] CHEM 14 (METABOLIC PANEL) 35520 Sodium 2951-2 141 mmol/L 2017 [facility] [address] [place] [address] CHEM 14 (METABOLIC PANEL) 98616 Potassium 2823-3 4.0 mmol/L 2017 [facility] [address] [place] [address] CHEM 14 (METABOLIC PANEL) 09087 Chloride 2075-0 106 mmol/L 2017 [facility] [address] [place] [address] CHEM 14 (METABOLIC PANEL) 08699 Total CO2 2028-9 26 mmol/L 2017 [facility] [address] [place] [address] CHEM 14 (METABOLIC PANEL) 83008 Anion Gap 1863-0 13.0 mEq/L 2017 [facility] [address] [place] [address] CHEM 14 (METABOLIC PANEL) 12983 Calculated Serum Osmolality 61777-5 293 mOsm/kg 2017 [facility] [address] [place] [address] CHEM 14 (METABOLIC PANEL) 25909 Albumin 63800-7 4.2 g/dL 2017 [facility] [address] [place] [address] CHEM 14 (METABOLIC PANEL) 88784 Total Protein 2885-2 7.6 g/dL 2017 [facility] [address] [place] [address] CHEM 14 (METABOLIC PANEL) 51544 Globulin 2336-6 3.4 g/dL 2017 [facility] [address] [place] [address] CHEM 14 (METABOLIC PANEL) 88553 Albumin/Globulin Ratio 1759-0 1.2 2017 [facility] [address] [place] [address] CHEM 14 (METABOLIC PANEL) 78401 ALK PHOS 6768-6 104.00 U/L 2017 [facility] [address] [place] [address] CHEM 14 (METABOLIC PANEL) 33635 SGOT/AST 1920-8 44 U/L 2017 [facility] [address] [place] [address] CHEM 14 (METABOLIC PANEL) 57519 SGPT/ALT 1743-4 81 U/L 2017 [facility] [address] [place] [address] CHEM 14 (METABOLIC PANEL) 99028 Total Bilirubin 1975-2 0.7 mg/dL 2017 [facility] [address] [place] [address] CHEM 14 (METABOLIC PANEL) 12196 Calcium 37256-4 9.5 mg/dL 2017 [facility] [address] [place] [address] CHEM 14 (METABOLIC PANEL) 92256 Corrected Calcium 82804-4 9.5 mg/dL 06/02 [facility] [address] [place] [address] VITAMIN B-12 56567 Vitamin B12 2132-9 1156 pg/mL 05/05 [facility] [address] [place] [address] PHOSPHORUS 48359 Phosphorus 2777-1 3.4 mg/dL 2017 [facility] [address] [place] [address] TSH 06285 TSH 85269-5 2.150 uIU/mL 2017 [facility] [address] [place] [address] MAGNESIUM 35283 Magnesium 43375-0 2.0 mg/dL 2017 [facility] [address] [place] [address] F3E-OEYTEQWWTKHEG IN 4548-4 Glyco HGB A1C 55670-3 6.0 % 2017 [facility] [address] [place] [address] Y1O-CQULSYUQHIZRL IN 4548-4 eAG 34481-0 126 mg/dL 2017 [facility] [address] [place] [address] HDL - CHOL 03264 HDL 2085-9 36 mg/dL 2017 [facility] [address] [place] [address] HDL - CHOL 33108 CHD 53891-7 22 % 2017 [facility] [address] [place] [address] COMPLETE CBC W/ DIFF WBC 72642 WBC 6690-2 10.8 K/ul 2017 [facility] [address] [place] [address] COMPLETE CBC W/ DIFF WBC 24291 RBC 789-8 4.24 M/uL 2017 [facility] [address] [place] [address] COMPLETE CBC W/ DIFF WBC 41283 Hemoglobin 718-7 11.8 g/dL 2017 [facility] [address] [place] [address] COMPLETE CBC W/ DIFF WBC 46010 Hematocrit 4544-3 37.2 % 2017 [facility] [address] [place] [address] COMPLETE CBC W/ DIFF WBC 46328 MCV 787-2 87.8 fL 2017 [facility] [address] [place] [address] COMPLETE CBC W/ DIFF WBC 00242 MCH 785-6 27.9 pg 2017 [facility] [address] [place] [address] COMPLETE CBC W/ DIFF WBC 26951 MCHC 786-4 31.8 g/dL 2017 [facility] [address] [place] [address] COMPLETE CBC W/ DIFF WBC 92673 RDW 788-0 15.1 % 2017 [facility] [address] [place] [address] COMPLETE CBC W/ DIFF WBC 59499 Platelet Count 777-3 344 K/uL 2017 [facility] [address] [place] [address] COMPLETE CBC W/ DIFF WBC 85818 MPV 89978-9 9.6 fL 2017 [facility] [address] [place] [address] TRIGLYCERIDES 83854 Triglycerides 2571-8 144 mg/dL 2017 [facility] [address] [place] [address] TRIGLYCERIDES 48092 VLDL 37382-7 29 mg/dL 2017 [facility] [address] [place] [address] Direct LDL 25077 LDL-Direct 03305-6 112 mg/dL 2017 [facility] [address] [place] [address] CHOLESTEROL 39512 Cholesterol 2093-3 161 mg/dL 2017 [facility] [address] [place] [address] FOLATE 87095 Folate 2284-8 >20 ng/mL 2017 [facility] [address] [place] [address] Procedures Procedure Codes Date Patient Health Questionnaire [...] depression- NO PLAN NEEDED CPT-4: DPHQUnknown 11/09/2023 FLUCELVAX PFS VAC NO PRSV 0.5 ML IM CPT-4: 21203 08/05/2023 Admin flu virus vaccine CPT-4: G0008 08/05/20 23 Patient Health Questionnaire CPT-4: DPHQ Electrocardiogram CPT-4: 23504 06/24/2023 Electrocardiogram Finding/Abnormal: _Sinus Rhythm Low voltage in precordial leads. - Nonspecific T-abnormality. CPT-4: 07188Sgekiof 023 Patient Health Questionnaire Little interest or [...] CPT-4: DFAUnknown 06/24/2023 Urinalysis, dip stick CPT-4: 95861 05/04/2023 Glucose Blood Test CPT-4: 46022 05/04/2023 Urinalysis, dip stick Leukocytes:/Moderate, Nitrite:/Negative, Urobilinogen:/0.2, Protein:/Negative, Ph:/5.0, Blood:/Negative, Specific Virgil:/1.005, Ketone:/Negative, Bilirubin:/Negative, Glucose:/Negative CPT-4: 30622Muvuroh 05/04/2023 [place] Assessment CPT-4: DSWA 01/02 Fall Risk Assessment CPT-4: DFRA 01/27/2023 Hypertension CPT-4: HTN 01/27/2023 [place] [facility] Assessment CPT-4: DSWAUnknown 01/27/2023 Fall Risk [...] reduce salt intake CPT-4: HTNUnknown 01/27/2023 Patient General Health Asses semnt Compared to one year ago, how would you rate your health in general?/the same CPT-4: PGHAUnknown 12/24/2022 Patient Health Questionnaire CPT-4: DPHQ Patient Health [...] CPT-4: PASUnknown 023 Glucose Blood Test CPT-4: 98159 2022 Hypertension CPT-4: HTN 08/17/2022 Admin pneumococ vac CPT-4: G0009 08/17/2022 PNEUMOCOCCAL VACC 23 JUNO IM CPT-4: 73209 08/03 Hypertension Hypertension Follow Up Plan/Lifestyle modification weight reduction, Hypertension Follow Up Plan/Lifestyle modification including reduce salt intake CPT-4: HTNUnknown 08/17/2022 Patient General Health Asses semnt Compared to one year ago, how would you rate your health in general?/the same CPT-4: PGHAUnknown 08/11/2022 Glucose Blood Test CPT-4: 72719 06/23/2022 [place] [facility] Assessment CPT-4: DSWA 04/02 Patient Health [...] depression- NO PLAN NEEDED CPT-4: DPHQUnknown 04/19/2022 [place] [facility] Assessment CPT-4: DSWAUnknown 04/19/2022 Annual Wellness [...] with pt and/or caregiver. Copy given. CPT-4: I6982Rdonxkf 02/11/2022 Patient General Health Asses semnt Compared to one year ago, how would you rate your health in general?/the same CPT-4: PGHAUnknown 01/07/2022 Patient Health Questionnaire CPT-4: DPHQ 01/2022 Patient [...] DFAUnknown 10/07/2021 Frailty Screening CPT-4: SFD 05/20/2021 Frailty Screening Are you fatigued?/No (0), Can you walk one block?/Yes (0), Can you walk up one flight of stairs?/Yes (0), Do you have more than 5 chronic illnesses?/Yes (1), Have you lost more than 5% body weight in 6 months?/No (0), Frailty Point Total:/Score 1=pre frail CPT-4: SFDUnknown 05/20/2021 Hypertension CPT-4: HTN 04/01/2021 Functional Assessment ADLs [...] 03/13/2021 Mini Mental State Exam CPT-4: DMMA Mini [...] CPT-4: VACP Fall Risk Assessment SNOMED CT: 90566332 4 CPT-4: DFRA 01/13/2021 Annual Wellness Visit [...] with injury in the past year?/No CPT-4: M6777Guninpo 01/13/2021 Advance Care Planning Time spent discussing advance directives [...] PRN, no current action needed SNOMED CT: 842367605 CPT-4: DFRAUnknown 01/13/2021 Functional Assessment ADLs - [...] Negative for depression (Plan NOT REQUIRED) CPT-4: QMNP5Rmirfal 01/13/2021 [place] [facility] Assessment CPT-4: DSWA 12/01 [place] [facility] Assessment CPT-4: DSWAUnknown 12/17/2020 Glucose Blood Test CPT-4: 29704 10/29/2020 Urinalysis, dip stick CPT-4: 52403 09/24/2020 Glucose Blood Test CPT-4: 94040 09/24/2020 Urinalysis, dip stick Leukocytes:/Small, Nitrite:/Negative, Urobilinogen:/0.2, Protein:/Negative, Ph:/5.0, Blood:/Non-Hemolyzed:, Blood:/Trace, Specific Virgil:/1.020, Ketone:/Negative, Bilirubin:/Negative, Glucose:/Negative CPT-4: 94363Suvgffs 09/24/2020 Patient Health Questionnaire CPT-4: DPHQ Patient Health [...] perform the following safely:/transportation CPT-4: DFAUnknown 08/19/2020 Maltreatment Assessment 1. Have you relied on [...] re-evaluate annually or prn CPT-4: MTAUnknown 07/08/2020 Glucose Blood Test CPT-4: 76453 06/11/2020 FLUCELVAX PFS VAC NO PRSV 0.5 ML IM CPT-4: 07394 06/11/2020 Admin flu virus vaccine CPT-4: G0008 06/11/20 20 Electrocardiogram CPT-4: 01721 05/14/2020 Electrocardiogram Finding/Normal CPT-4: 77889Olzerwi 05/14/2020 Breast Cancer Screening Screening for Breast Cancer/Screened:/No/Mammogram not clinically indicated due to < 50 years of age CPT-4: BCSUnknown 04/02 Colorectal Screening Screening for Colorectal Cancer/Screened:/No/CRC screening not clinically indicated due to < 50 years of age CPT-4: CRSUnknown 04/17/2020 Tobacco Assessment/Screening CPT-4: TCA Fall Risk Assessment SNOMED CT: 53441640 4 CPT-4: DFRA 01/01/2020 Functional Assessment CPT-4: DFA 01/01/2020 Tobacco Assessment/Screening Tobacco Use/Never used tobacco CPT-4: TCAUnknown 01/01/2020 Fall Risk Assessment Two or more falls in the past year?/No, Has there been a fall with injury in the last year?/No, Plan:/Monitor gait and balance PRN, no current action needed SNOMED CT: 956962352 CPT-4: DFRAUnknown 01/01/2020 Functional Assessment ADLs - [...] perform the following safely:/transportation CPT-4: DFAUnknown 01/01/2020 [place] [facility] Assessment CPT-4: DSWA 11/04 Patient Health [...] Plan:/*Active diagnosis of depression CPT-4: DPHQUnknown 11/28/2019 [place] [facility] Assessment CPT-4: DSWAUnknown 11/28/2019 [place] [facility] Assessment CPT-4: DSWA 10/03 Hypertension CPT-4: HTN 10/17/2019 Hypertension Hypertension Follow Up Plan/Lifestyle modification weight reduction, Hypertension Follow Up Plan/Repeat BP measurement within one month, Hypertension Follow Up Plan/Lifestyle modification including reduce salt intake CPT-4: HTNUnknown 10/17/2019 [place] [facility] Assessment CPT-4: DSWA 10/03 Glucose Blood Test CPT-4: 96253 10/17/2019 [facility] CPT-4: DFRA 09/19/2019 Functional Assessment CPT-4: [...] PRN, no current action needed SNOMED CT: 003223859 CPT-4: DFRAUnknown 09/19/2019 Urinalysis, dip stick CPT-4: 69374 06/21/2019 Urinalysis, dip stick Leukocytes:/Moderate, Nitrite:/Negative, Urobilinogen:/Normal, Protein:/Negative, Ph:/5.0, Blood:/Negative, Specific Virgil:/1.015, Ketone:/Negative, Bilirubin:/Negative, Glucose:/Negative CPT-4: 28528Rnezomx 06/21/2019 Tobacco Assessment/Screening CPT-4: TCA Patient Health Questionnaire CPT-4: DPHQ PNEUMOCOCCAL VACC 13 JUNO IM CPT-4: 38135 05/04 Patient Health Questionnaire Little interest or [...] 04/03 TD VACCINE >7 y/o IM CPT-4: 65201 04/25/2019 AHA/REBECCA Classification Asse ssment Assign to:/[place] - Lab Template, Assign to:, AHA/A: At risk, but without structural heart disease., NYHA/I: Asymptomatic CPT-4: DAHAUnknown 04/25/2019 Immunization Administration CPT-4: 21610 04/03 Controlled Substance Report Assign to:, Controlled Substance Report Range:/Past 24 months, Provider Attestation:/I attest that I reviewed the state PDMP report and find no clinical issues., Formatting Model/CDA Sections/CCDA CPT-4: CTRSUUnknown 04/25/2019 Urinalysis, dip stick CPT-4: 89406 03/28/2019 Urinalysis, dip stick CPT-4: 99228 03/28/2019 Urinalysis, dip stick Leukocytes:/Moderate, Nitrite:/Negative, Urobilinogen:/Normal, Protein:/Negative, Ph:/5.0, Blood:/Negative, Specific Virgil:/1.030, Ketone:/5 points, Bilirubin:/Small, Glucose:/10/12 CPT-4: 20554Uslymtt 03/28/2019 Glucose Blood Test CPT-4: 76348 01/31/2019 Electrocardiogram Finding/Sinus Bradycardia CPT-4: 66608Xnpouko 12/27/2018 Glucose Blood Test CPT-4: 17469 08/09/2018 [place] [facility] Assessment Sensation/04/11 CPT-4: DSWAUnknown 07/12/2018 Functional Assessment Activities of [...] injury in the last year?/Yes (High Risk) OMED CT: 294216156 CPT-4: DFRAUnknown 07/12/2018 Glucose Blood Test CPT-4: 91204 06/14/2018 Urinalysis, dip stick Leukocytes:/Moderate, Nitrite:/Negative, Urobilinogen:/Normal, Protein:/Trace, Ph:/6.0, Blood:/Negative, Specific Virgil:/1.010, Ketone:/Negative, Bilirubin:/Small, Glucose:/Negative CPT-4: 45472Ekedipk 05/31/2018 Electrocardiogram Finding/Abnormal: _ CPT-4: 34118Izfzgvh 05/31/2018 U3Q-Rwqmxmsvwrogsgm CPT-4: 29332 Unknown Q6V-Hpuydckdwfovdxx CPT-4: 32343 Unknown Y0L-Wwxexhslthtbmvl CPT-4: 76877 Unknown C6V-Jwgvetviyarrytc CPT-4: 76243 Unknown M4X-Woopfowqmhjcyox CPT-4: 55057 Unknown A7T-Dqkdumrtjvusgxu CPT-4: 20121 Unknown R2D-Gcywzuhysrnrqqf CPT-4: 00225 Unknown I3X-Xdfcdarvuxxcxbw CPT-4: 64725 Unknown E9N-Hixukpuvvmvjswr CPT-4: 27093 Unknown P4B-Tbqfdeooswxnzti CPT-4: 90955 Unknown O9D-Wfknookanlilrtw CPT-4: 54638 Unknown A7N-Fssyhfuajjfejfj CPT-4: 60710 Unknown Gynecology Referral SNOMED CT: 969422524 CPT-4: R14 Unknown G2M-Pypvfwnugfthhls CPT-4: 96575 Unknown Vital Signs Date Vital 11/09/2023 Blood Pressure 1: 110/84 Code: 8480-6 BMI: 53.3 Code: 40240-3 Heart Rate 1: 71 bpm Height: 4'11 Code: 8302-2 Respiratory Rate: 16 bpm SpO2: 99% Temperature: 36.3 (C) / 97.3 (F) Weight: 263 lbs 12 oz Code: 80932-1 09/20/2023 Blood Pressure 1: 102/78 Code: 8480-6 BMI: 51.4 Code: 57289-1 Heart Rate 1: 77 bpm Height: 4'11 Code: 8302-2 Respiratory Rate: 16 bpm SpO2: 98% Temperature: 36.3 (C) / 97.3 (F) Weight: 254 lbs 8 oz Code: 19336-7 08/05/2023 Blood Pressure 1: 118/84 Code: 8480-6 BMI: 51.3 Code: 17850-3 Heart Rate 1: 70 bpm Height: 4'11 Code: 8302-2 Respiratory Rate: 16 bpm SpO2: 98% Temperature: 36.4 (C) / 97.5 (F) Weight: 254 lbs Code: 98711-1 06/24/2023 Blood Pressure 1: 122/76 Code: 8480-6 BMI: 51.1 Code: 22382-7 Heart Rate 1: 67 bpm Height: 4'11 Code: 8302-2 Respiratory Rate: 16 bpm SpO2: 98% Temperature: 36.7 (C) / 98.1 (F) Weight: 253 lbs Code: 73695-8 05/04/2023 Blood Pressure 1: 114/76 Code: 8480-6 BMI: 78.8 Code: 94587-8 Heart Rate 1: 70 bpm Height: 4' Code: 8302-2 Random Blood Sugar: 108/NaN Respiratory Rate: 16 bpm SpO2: 98% Temperature: 36.7 (C) / 98.1 (F) Weight: 258 lbs 4 oz Code: 70634-1 01/27/2023 Blood Pressure 1: 100/60 Code: 8480-6 BMI: 81.3 Code: 88073-8 Heart Rate 1: 79 bpm Height: 4' Code: 8302-2 Respiratory Rate: 20 bpm SpO2: 97% Temperature: 36.5 (C) / 97.7 (F) Weight: 266 lbs 8 oz Code: 20167-0 11/23/2022 Blood Pressure 1: 100/68 Code: 8480-6 BMI: 54.7 Code: 25660-2 Heart Rate 1: 80 bpm Height: 4'11 Code: 8302-2 Respiratory Rate: 16 bpm SpO2: 98% Temperature: 36.3 (C) / 97.3 (F) Weight: 270 lbs 12 oz Code: 07047-0 2022 Blood Pressure 1: 104/78 Code: 8480-6 BMI: 54.4 Code: 20650-9 Heart Rate 1: 90 bpm Height: 4'11 Code: 8302-2 Random Blood Sugar: 117/NaN Respiratory Rate: 18 bpm SpO2: 98% Temperature: 36.3 (C) / 97.3 (F) Weight: 269 lbs 9 oz Code: 79559-7 08/17/2022 Blood Pressure 1: 126/82 Code: 8480-6 BMI: 53.9 Code: 57669-7 Heart Rate 1: 81 bpm Height: 4'11 Code: 8302-2 Respiratory Rate: 16 bpm SpO2: 99% Temperature: 36.3 (C) / 97.3 (F) Weight: 266 lbs 12 oz Code: 34562-8 06/23/2022 Blood Pressure 1: 130/78 Code: 8480-6 BMI: 55.2 Code: 49810-0 Heart Rate 1: 75 bpm Height: 4'11 Code: 8302-2 Random Blood Sugar: 114/NaN Respiratory Rate: 18 bpm SpO2: 98% Temperature: 36.3 (C) / 97.3 (F) Weight: 273 lbs 3 oz Code: 43091-4 04/19/2022 Blood Pressure 1: 102/82 Code: 8480-6 BMI: 55.1 Code: 30589-5 Heart Rate 1: 85 bpm Height: 4'11 Code: 8302-2 Respiratory Rate: 18 bpm SpO2: 97% Temperature: 36.5 (C) / 97.7 (F) Weight: 272 lbs 12 oz Code: 88304-5 02/11/2022 Blood Pressure 1: 116/82 Code: 8480-6 BMI: 55.1 Code: 22578-7 Heart Rate 1: 90 bpm Height: 4'11 Code: 8302-2 Respiratory Rate: 18 bpm SpO2: 98% Temperature: 36.1 (C) / 97.0 (F) Weight: 272 lbs 12 oz Code: 43221-8 12/03/2021 Blood Pressure 1: 118/76 Code: 8480-6 BMI: 54.1 Code: 60877-2 Heart Rate 1: 82 bpm Height: 4'11 Code: 8302-2 Respiratory Rate: 16 bpm SpO2: 98% Temperature: 36.4 (C) / 97.5 (F) Weight: 268 lbs Code: 39994-1 11/02/2021 Blood Pressure 1: 108/86 Code: 8480-6 BMI: 55.2 Code: 60334-6 Heart Rate 1: 81 bpm Height: 4'11 Code: 8302-2 Respiratory Rate: 16 bpm SpO2: 98% Temperature: 36.3 (C) / 97.3 (F) Weight: 273 lbs 6 oz Code: 87593-8 10/07/2021 Blood Pressure 1: 122/78 Code: 8480-6 BMI: 53.7 Code: 54719-9 Heart Rate 1: 80 bpm Height: 4 Code: 8302-2 Respiratory Rate: 18 bpm SpO2: 98% Temperature: 36.6 (C) / 97.8 (F) Weight: 266 lbs Code: 28615-9 04/01/2021 Blood Pressure 1: 116/84 Code: 8480-6 BMI: 53.4 Code: 03786-9 Heart Rate 1: 78 bpm Height: Code: 8302-2 Respiratory Rate: 18 bpm SpO2: 98% Temperature: 36.3 (C) / 97.3 (F) Weight: 264 lbs 4 oz Code: 51338-9 02/11/2021 Blood Pressure 1: 96/74 Code: 8480-6 BMI: 53.1 Code: 14933-6 Heart Rate 1: 72 bpm Height: Code: 8302-2 Respiratory Rate: 18 bpm SpO2: 98% Temperature: 36.5 (C) / 97.7 (F) Weight: 263 lbs Code: 29664-0 01/29/2021 Blood Pressure 1: 128/70 Code: 8480-6 BMI: 53.3 Code: 65074-3 Heart Rate 1: 75 bpm Height: 4'11 Code: 8302-2 Respiratory Rate: 20 bpm SpO2: 95% Temperature: 37.1 (C) / 98.7 (F) Weight: 264 lbs Code: 45558-9 12/17/2020 Blood Pressure 1: 134/82 Code: 8480-6 BMI: 53.1 Code: 58413-8 Heart Rate 1: 90 bpm Height: 4'11 Code: 8302-2 Respiratory Rate: 16 bpm SpO2: 98% Temperature: 36.4 (C) / 97.5 (F) Weight: 263 lbs Code: 37393-9 10/29/2020 Blood Pressure 1: 98/66 Code: 8480-6 BMI: 53.3 Code: 37774-7 Heart Rate 1: 80 bpm Height: 4' Code: 8302-2 Respiratory Rate: 16 bpm SpO2: 99% Temperature: 36.6 (C) / 97.9 (F) Weight: 264 lbs Code: 66596-4 09/24/2020 Blood Pressure 1: 122/84 Code: 8480-6 BMI: 53.1 Code: 37915-4 Heart Rate 1: 68 bpm Height: 4 Code: 8302-2 Respiratory Rate: 16 bpm Temperature: 36.7 (C) / 98.1 (F) Weight: 263 lbs Code: 21860-4 06/11/2020 Blood Pressure 1: 116/68 Code: 8480-6 BMI: 55.1 Code: 52743-8 Heart Rate 1: 90 bpm Height: Code: 8302-2 Random Blood Sugar: 127/NaN Respiratory Rate: 16 bpm SpO2: 98% Temperature: 36.5 (C) / 97.7 (F) Weight: 273 lbs Code: 00167-5 05/14/2020 Blood Pressure 1: 100/82 Code: 8480-6 BMI: 54.7 Code: 72353-5 Heart Rate 1: 86 bpm Height: 4 Code: 8302-2 Respiratory Rate: 18 bpm SpO2: 98% Temperature: 36.6 (C) / 97.9 (F) Weight: 271 lbs Code: 38053-2 04/17/2020 Blood Pressure 1: 10 7 Code: 8480-6 Heart Rate 1: 90 bpm Weight: 264 lbs Code: 01212-8 03/21/2020 Blood Pressure 1: 139/87 Code: 8480-6 BMI: 53.9 Code: 72129-5 Heart Rate 1: 86 bpm Height: 4 Code: 8302-2 SpO2: % Weight: 267 lbs Code: 92143-4 02/14/2020 BMI: 54.5 Code: 25602-1 Height: 4 Code: 8302-2 Weight: 270 lbs Code: 79209-2 01/24/2020 BMI: 55.9 Code: 33840-8 Height: 4'11 Code: 8302-2 Weight: 277 lbs Code: 45596-2 01/01/2020 Random Blood Sugar: 171/NaN 11/28/2019 Blood Pressure 1: 120/85 Code: 8480-6 BMI: 58.8 Code: 52082-3 Heart Rate 1: 92 bpm Height: 4'11 Code: 8302-2 Respiratory Rate: 18 bpm SpO2: 97% Temperature: 36.4 (C) / 97.5 (F) Weight: 291 lbs Code: 84865-4 10/17/2019 Blood Pressure 1: 110/62 Code: 8480-6 BMI: 59.6 Code: 49979-9 Heart Rate 1: 101 bpm Height: 4'11 Code: 8302-2 Random Blood Sugar: 144/NaN Respiratory Rate: 16 bpm SpO2: 99% Temperature: 36.7 (C) / 98.0 (F) Weight: 295 lbs Code: 49407-5 09/19/2019 Blood Pressure 1: 128/82 Code: 8480-6 BMI: 58.8 Code: 85469-9 Heart Rate 1: 98 bpm Height: 4'11 Code: 8302-2 Respiratory Rate: 18 bpm SpO2: 98% Temperature: 37.5 (C) / 99.5 (F) Weight: 291 lbs Code: 55428-3 07/04/2019 Random Blood Sugar: 131/NaN 06/21/2019 Blood Pressure 1: 136/78 Code: 8480-6 BMI: 56.8 Code: 56658-4 Heart Rate 1: 78 bpm Height: 4'11 Code: 8302-2 Random Blood Sugar: 118/NaN Reported Pain Level (Scale 0-10): Respiratory Rate: 18 bpm SpO2: 99% Temperature: 36.7 (C) / 98.1 (F) Weight: 281 lbs Code: 46395-2 05/24/2019 Blood Pressure 1: 110/68 Code: 8480-6 BMI: 56.8 Code: 11286-1 Heart Rate 1: 83 bpm Height: 4'11 Code: 8302-2 Respiratory Rate: 18 bpm SpO2: 99% Temperature: 36.5 (C) / 97.7 (F) Weight: 281 lbs Code: 37580-5 04/25/2019 Blood Pressure 1: 140/98 Code: 8480-6 BMI: 55.3 Code: 33216-5 Heart Rate 1: 100 bpm Height: 4'11 Code: 8302-2 Respiratory Rate: 20 bpm SpO2: 98% Temperature: 36.3 (C) / 97.3 (F) Weight: 274 lbs Code: 66111-9 03/28/2019 Blood Pressure 1: 128/88 Code: 8480-6 BMI: 57.1 Code: 06760-9 Heart Rate 1: 88 bpm Height: 4'11 Code: 8302-2 Respiratory Rate: 16 bpm SpO2: 99% Temperature: 36.3 (C) / 97.4 (F) Weight: 282 lbs 13 oz Code: 66650-2 02/14/2019 Blood Pressure 1: 122/80 Code: 8480-6 BMI: 56.1 Code: 72029-9 Heart Rate 1: 102 bpm Height: 4'11 Code: 8302-2 Respiratory Rate: 20 bpm SpO2: 98% Temperature: 37.2 (C) / 99.0 (F) Weight: 278 lbs Code: 11133-0 01/31/2019 Blood Pressure 1: 144/82 Code: 8480-6 BMI: 55.3 Code: 52266-6 Heart Rate 1: 104 bpm Height: 4'11 Code: 8302-2 Random Blood Sugar: 110/NaN Respiratory Rate: 20 bpm SpO2: 99% Temperature: 37.0 (C) / 98.6 (F) Weight: 274 lbs Code: 52715-6 12/27/2018 Blood Pressure 1: 110/78 Code: 8480-6 BMI: 54.3 Code: 99882-8 Heart Rate 1: 66 bpm Height: 4'11 Code: 8302-2 Karnofsky Score (0-100): 60 Random Blood Sugar: 112/NaN Respiratory Rate: 18 bpm SpO2: 99% Temperature: 36.8 (C) / 98.2 (F) Weight: 269 lbs Code: 28024-5 11/29/2018 Blood Pressure 1: 128/80 Code: 8480-6 BMI: 52.5 Code: 82494-4 Heart Rate 1: 55 bpm Height: 4'11 Code: 8302-2 Respiratory Rate: 18 bpm SpO2: 97% Temperature: 36.4 (C) / 97.5 (F) Weight: 260 lbs Code: 35302-0 10/04/2018 Blood Pressure 1: 118/74 Code: 8480-6 BMI: 55.5 Code: 82296-5 Heart Rate 1: 74 bpm Height: 4'11 Code: 8302-2 Respiratory Rate: 18 bpm SpO2: 98% Temperature: 36.9 (C) / 98.4 (F) Weight: 275 lbs Code: 03683-2 09/06/2018 Blood Pressure 1: 110/80 Code: 8480-6 BMI: 55.7 Code: 90047-9 Heart Rate 1: 74 bpm Height: 4'11 Code: 8302-2 Random Blood Sugar: 106/NaN Respiratory Rate: 16 bpm SpO2: 98% Temperature: 36.5 (C) / 97.7 (F) Weight: 276 lbs Code: 54148-0 08/09/2018 Blood Pressure 1: 115/77 Code: 8480-6 BMI: 56.6 Code: 63991-7 Heart Rate 1: 75 bpm Height: 4'11 Code: 8302-2 Random Blood Sugar: 137/NaN Respiratory Rate: 18 bpm SpO2: 98% Temperature: 37.4 (C) / 99.3 (F) Weight: 280 lbs Code: 25550-9 07/12/2018 Blood Pressure 1: 125/78 Code: 8480-6 BMI: 57.2 Code: 36821-5 Heart Rate 1: 72 bpm Height: 4'11 Code: 8302-2 Random Blood Sugar: 103/NaN Respiratory Rate: 16 bpm SpO2: 98% Temperature: 36.3 (C) / 97.3 (F) Weight: 283 lbs Code: 66248-4 06/14/2018 Blood Pressure 1: 121/75 Code: 8480-6 BMI: 59.0 Code: 03029-8 Heart Rate 1: 84 bpm Height: 4'11 Code: 8302-2 Random Blood Sugar: 92/NaN Respiratory Rate: 16 bpm SpO2: 98% Temperature: 37.6 (C) / 99.7 (F) Weight: 292 lbs Code: 96241-2 05/31/2018 Blood Pressure 1: 113/71 Code: 8480-6 BMI: 59.0 Code: 07104-5 Heart Rate 1: 71 bpm Height: 4'11 Code: 8302-2 Random Blood Sugar: 123/NaN Respiratory Rate: 16 bpm SpO2: 98% Temperature: 37.4 (C) / 99.4 (F) Weight: 292 lbs 2 oz Code: 95157-9 Reason For Visit Reason For Visit Effective Dates Notes established patient visit 11/09/2023 [facility] 11/09/2023 diabetes mellitus 11/09/2023 HTN 11/09/2023 established patient visit 10/21/2023 [facility] 10/21/2023 diabetes mellitus 10/21/2023 dermatologic complaint 10/21/2023 diabetes mellitus 09/20/2023 respiratory complaint 09/20/2023 HTN 09/20/2023 [facility] 09/20/2023 HTN 08/05/2023 weight gain/obesity 08/05/2023 diabetes mellitus 08/05/2023 joint complaint 08/05/2023 [facility] 08/05/2023 HTN 06/24/2023 depression 06/24/2023 weight gain/obesity 06/24/2023 diabetes mellitus 06/24/2023 [facility] 06/24/2023 diabetes mellitus 05/04/2023 HTN 05/04/2023 hyperlipidemia disease 05/04/2023 seizure disorder 05/04/2023 [facility] 05/04/2023 gastroesophageal reflux disease 01/27/2023 diabetes mellitus 01/27/2023 hypertension 01/27/2023 depression 01/27/2023 [facility] 01/27/2023 gastroesophageal reflux disease 11/23/2022 diabetes mellitus 11/23/2022 hypertension 11/23/2022 depression 11/23/2022 [facility] 11/23/2022 diabetes mellitus 2022 hypertension 2022 depression 2022 dermatologic complaint 2022 [facility] 2022 sores 08/17/2022 diabetes mellitus 08/17/2022 hypertension 08/17/2022 [facility] 08/17/2022 diabetes mellitus 06/23/2022 hypertension 06/23/2022 weight gain/obesity 06/23/2022 [facility] 06/23/2022 weight gain/obesity 04/19/2022 diabetes mellitus 04/19/2022 diabetes mellitus 02/11/2022 hyperlipidemia disease 02/11/2022 hypertension 12/03/2021 diabetes mellitus 12/03/2021 diabetes mellitus 11/02/2021 sleep apnea-obstruction 11/02/2021 hyperglycemia condition 10/07/2021 weight gain/obesity 10/07/2021 diarrhea 08/13/2021 [facility] 08/13/2021 hyperlipidemia disease 07/06/2021 gastroesophageal reflux disease 07/06/2021 [facility] 07/06/2021 diabetes mellitus 06/10/2021 nausea 06/10/2021 sinus congestion 06/02/2021 diabetes mellitus 06/02/2021 [facility] 06/02/2021 dizziness 06/02/2021 diabetes mellitus 05/20/2021 hyperlipidemia disease 05/20/2021 [facility] 05/20/2021 dizziness 05/20/2021 neurologic complaint 04/28/2021 diabetes mellitus 04/28/2021 spasms/spasticity 04/15/2021 post traumatic stress disorder 04/15/2021 blisters 04/01/2021 diabetes mellitus 04/01/2021 hyperlipidemia disease 04/01/2021 [facility] 04/01/2021 blisters 03/24/2021 diabetes mellitus 03/24/2021 hyperlipidemia disease 03/24/2021 [facility] 03/24/2021 diabetes mellitus 03/13/2021 hyperlipidemia disease 03/13/2021 [facility] 03/13/2021 diabetes mellitus 02/11/2021 hyperlipidemia disease 02/11/2021 [facility] 02/11/2021 diabetes mellitus 01/29/2021 gastroesophageal reflux disease 01/29/2021 [facility] 01/29/2021 [facility] 01/13/2021 diabetes mellitus 01/13/2021 hypertension 01/13/2021 anorexia 01/13/2021 genitouriniary male/female complaint 01/13/2021 [facility] 12/17/2020 diabetes mellitus 12/17/2020 hypertension 12/17/2020 anorexia 12/17/2020 diabetes mellitus 11/28/2020 gastroesophageal reflux disease 11/28/2020 [facility] 11/28/2020 hypertension 11/24/2020 diabetes mellitus 11/24/2020 gastroesophageal reflux disease 11/24/2020 [facility] 11/24/2020 hypertension 10/29/2020 diabetes mellitus 10/29/2020 gastroesophageal reflux disease 10/29/2020 [facility] 10/29/2020 hypertension 09/24/2020 diabetes mellitus 09/24/2020 gastroesophageal reflux disease 09/24/2020 [facility] 09/24/2020 hypertension 08/26/2020 diabetes mellitus 08/26/2020 mole check 08/26/2020 [facility] 08/26/2020 hypertension 08/19/2020 diabetes mellitus 08/19/2020 mole check 08/19/2020 [facility] 08/19/2020 hypertension 07/22/2020 diabetes mellitus 07/22/2020 mole check 07/22/2020 [facility] 07/22/2020 hypertension 07/08/2020 diabetes mellitus 07/08/2020 mole check 07/08/2020 [facility] 07/08/2020 hypertension 06/11/2020 diabetes mellitus 06/11/2020 mole check 06/11/2020 [facility] 06/11/2020 hypertension 05/14/2020 diabetes mellitus 05/14/2020 [facility] 05/14/2020 hypertension 04/17/2020 diabetes mellitus 04/17/2020 [facility] 04/17/2020 hypertension 03/21/2020 diabetes mellitus 03/21/2020 [facility] 03/21/2020 hypertension 02/14/2020 diabetes mellitus 02/14/2020 [facility] 02/14/2020 hypertension 01/24/2020 diabetes mellitus 01/24/2020 [facility] 01/24/2020 hypertension 01/01/2020 diabetes mellitus 01/01/2020 [facility] 01/01/2020 hypertension 11/28/2019 diabetes mellitus 11/28/2019 hypertension 10/17/2019 diabetes mellitus 10/17/2019 hypertension 09/19/2019 diabetes mellitus 09/19/2019 hypertension 07/04/2019 diabetes mellitus 07/04/2019 urinary incontinence 06/21/2019 hypertension 06/21/2019 hyperlipidemia disease 06/21/2019 diabetes mellitus 05/24/2019 hypothyroidism 05/24/2019 hyperlipidemia disease 05/24/2019 urinary urgency 05/24/2019 diabetes mellitus 04/25/2019 hypertension 04/25/2019 asthma disease 04/25/2019 asthma disease 03/28/2019 apneic events 03/28/2019 apneic events 02/14/2019 apneic events 01/31/2019 diabetes mellitus 01/31/2019 hypertension 01/31/2019 hypertension 12/27/2018 diabetes mellitus 12/27/2018 headache 12/27/2018 appropriateness for house call services 11/29/19 19 hypertension 11/29/2018 diabetes mellitus 11/29/2018 headache 11/29/2018 appropriateness for house call services 10/04/19 19 hypertension 10/04/2018 diabetes mellitus 10/04/2018 headache 10/04/2018 appropriateness for house call services 09/06/20 18 post traumatic stress disorder 09/06/2018 neurologic complaint 09/06/2018 headache 09/06/2018 appropriateness for house call services 08/09/20 18 post traumatic stress disorder 08/09/2018 neurologic complaint 08/09/2018 headache 08/09/2018 appropriateness for house call services 07/12/20 18 post traumatic stress disorder 07/12/2018 neurologic complaint 07/12/2018 headache 07/12/2018 appropriateness for house call services 06/14/20 18 post traumatic stress disorder 06/14/2018 diabetes mellitus 06/14/2018 hypertension 06/14/2018 appropriateness for house call services 05/31/20 18 diabetes mellitus 05/31/2018 hypertension 05/31/2018 Encounters Encounter Performer Location Location Address Codes Date () (EST PT) DETAILED TELEHEALTH VISIT Diagnosis: Type 2 diabetes mellitus with peripheral neuropathy[ICD10: E11.42] Diagnosis: Hypertensive heart disease without heart failure[ICD10: I11.9] Diagnosis: Major depression, recurrent[ICD10: F33.9] Diagnosis: Adult BMI 50.0-59.9 kg/sq m[ICD10: Z68.43] [facility] [address] [place] [address] CPT-4: 07834 11/09/19 24 ([id number]) (EST PT) DETAILED TELEHEALTH VISIT Diagnosis: Type 2 diabetes mellitus with hyperglycemia, without long-term current use of insulin[ICD10: E11.65] Diagnosis: Impetigo[ICD10: L01.00] Diagnosis: Major depression, recurrent[ICD10: F33.9] [facility] [address] [place], [place] [address] CPT-4: 15242 10/21/19 24 ([id number]) Home or Residence Visit Est Pt - Moderate Level, 40 mins Diagnosis: Type 2 diabetes mellitus with peripheral neuropathy[ICD10: E11.42] Diagnosis: Hypertensive heart disease without heart failure[ICD10: I11.9] Diagnosis: Upper respiratory infection[ICD10: J06.9] [facility] [address] [place] [address] CPT-4: 50451 09/20/20 23 ([id number]) Home or Residence Visit Est Pt - High Level, 60 mins Diagnosis: Type 2 diabetes mellitus with hyperglycemia, without long-term current use of insulin[ICD10: E11.65] Diagnosis: Right foot pain[ICD10: M79.671] Diagnosis: Hypertensive heart disease without heart failure[ICD10: I11.9] Diagnosis: Encounter for immunization[ICD10: Z23] [facility] [address] [place] [address] CPT-4: 74821 08/05/20 23 ([id number]) Home or Residence Visit Est Pt - Moderate Level, 40 mins Diagnosis: Type 2 diabetes mellitus with peripheral neuropathy[ICD10: E11.42] Diagnosis: Hypertensive heart disease without heart failure[ICD10: I11.9] Diagnosis: Major depression, recurrent[ICD10: F33.9] Diagnosis: Adult BMI 50.0-59.9 kg/sq m[ICD10: Z68.43] [facility] [address] [place] [address] CPT-4: 73142 06/24/20 23 ([id number]) Home or Residence Visit Est Pt - Moderate Level, 40 mins Diagnosis: Type 2 diabetes mellitus with peripheral neuropathy[ICD10: E11.42] Diagnosis: Hyperlipidemia, mixed[ICD10: E78.2] Diagnosis: Hypertensive heart disease without heart failure[ICD10: I11.9] Diagnosis: Major depression, recurrent[ICD10: F33.9] Diagnosis: Vitamin D deficiency[ICD10: E55.9] Diagnosis: Nonintractable epileptic seizures due to external causes, without status epilepticus[ICD10: G40.509] [facility] [address] [place] [address] CPT-4: 69291 05/04/20 23 ([id number]) Home or Residence Visit Est Pt - Moderate Level, 40 mins Diagnosis: Type 2 diabetes mellitus with peripheral neuropathy[ICD10: E11.42] Diagnosis: Hypertensive heart disease[ICD10: I11.9] Diagnosis: Major depression, recurrent[ICD10: F33.9] Diagnosis: Insomnia[ICD10: G47.00] Diagnosis: Adult BMI 50.0-59.9 kg/sq m[ICD10: Z68.43] [facility] [address] [place], [place] [address] CPT-4: 87970 01/28/20 23 ([id number]) Home or Residence Visit Est Pt - Moderate Level, 40 mins Diagnosis: GERD (gastroesophageal reflux disease)[ICD10: K21.9] Diagnosis: Type 2 diabetes mellitus with peripheral neuropathy[ICD10: E11.42] Diagnosis: Hypertensive heart disease[ICD10: I11.9] Diagnosis: Major depression, recurrent[ICD10: F33.9] [facility] [address] [place], [place] [address] CPT-4: 21843 11/23/19 23 ([id number]) Home or Residence Visit Est Pt - Moderate Level, 40 mins Diagnosis: Type 2 diabetes mellitus with peripheral neuropathy[ICD10: E11.42] Diagnosis: Hypertensive heart disease[ICD10: I11.9] Diagnosis: Major depression, recurrent[ICD10: F33.9] Diagnosis: Open wound of right middle finger[ICD10: S61.202A] Diagnosis: Adult BMI 50.0-59.9 kg/sq m[ICD10: Z68.43] Diagnosis: Encounter for screening for tobacco use[ICD10: Z01.89] [facility] [address] [place], [place] [address] CPT-4: 72790 10/20/19 23 ([id number]) HOME VISIT EST PATIENT Diagnosis: Type 2 diabetes mellitus with peripheral neuropathy[ICD10: E11.42] Diagnosis: Hypertension[ICD10: I10] Diagnosis: Adult BMI 50.0-59.9 kg/sq m[ICD10: Z68.43] Diagnosis: Fungal infection of skin[ICD10: B36.9] Diagnosis: Encounter for immunization[ICD10: Z23] Diagnosis: Influenza vaccine refused[ICD10: Z28.21] [facility] [address] [place], [place] [address] CPT-4: 72251 08/17/20 22 ([id number]) HOME VISIT EST PATIENT Diagnosis: Type 2 diabetes mellitus with peripheral neuropathy[ICD10: E11.42] Diagnosis: Hypertensive heart disease[ICD10: I11.9] Diagnosis: Major depression, recurrent[ICD10: F33.9] Diagnosis: Hypothyroid[ICD10: E03.9] Diagnosis: Obstructive sleep apnea (adult) (pediatric)[ICD10: G47.33] Diagnosis: Adult BMI 50.0-59.9 kg/sq m[ICD10: Z68.43] Diagnosis: Influenza vaccine refused[ICD10: Z28.21] [facility] [address] [place], [place] [address] CPT-4: 80217 06/23/20 22 ([id number]) HOME VISIT EST PATIENT Diagnosis: Hypertension[ICD10: I10] Diagnosis: Type 2 diabetes mellitus with peripheral neuropathy[ICD10: E11.42] Diagnosis: Adult BMI 50.0-59.9 kg/sq m[ICD10: Z68.43] Diagnosis: Hyperlipidemia, mixed[ICD10: E78.2] [facility] [address] [place], [place] [address] CPT-4: 58084 04/19/20 ([id number]) HOME VISIT EST PATIENT Diagnosis: Hypertension[ICD10: I10] Diagnosis: Type 2 diabetes mellitus with peripheral neuropathy[ICD10: E11.42] Diagnosis: Adult BMI 50.0-59.9 kg/sq m[ICD10: Z68.43] Diagnosis: Hyperlipidemia, mixed[ICD10: E78.2] Diagnosis: Obstructive sleep apnea (adult) (pediatric)[ICD10: G47.33] Diagnosis: Allergic rhinitis[ICD10: J30.9] Diagnosis: (Z00.00-V70.9) Encounter for general adult medical examination without abnormal findings[ICD10: Z00.00] [facility] [address] [place], [place] [address] CPT-4: 38816 02/12/20 22 ([id number]) HOME VISIT EST PATIENT Diagnosis: Hypertension[ICD10: I10] Diagnosis: Hypertensive heart disease[ICD10: I11.9] Diagnosis: Type 2 diabetes mellitus with peripheral neuropathy[ICD10: E11.42] Diagnosis: Adult BMI 50.0-59.9 kg/sq m[ICD10: Z68.43] Diagnosis: Vitamin D deficiency[ICD10: E55.9] Diagnosis: Hyperlipidemia, mixed[ICD10: E78.2] [facility] [address] [place], [place] [address] CPT-4: 51070 12/04/19 22 ([id number]) HOME VISIT EST PATIENT Diagnosis: Adult BMI 50.0-59.9 kg/sq m[ICD10: Z68.43] Diagnosis: Type 2 diabetes mellitus with peripheral neuropathy[ICD10: E11.42] Diagnosis: Syncope and collapse[ICD10: R55] Diagnosis: Family history of seizures[ICD10: Z84.89] Diagnosis: Obstructive sleep apnea (adult) (pediatric)[ICD10: G47.33] [facility] [address] [place], [place] [address] CPT-4: 59072 11/02/19 22 ([id number]) HOME VISIT EST PATIENT Diagnosis: Type 2 diabetes mellitus with peripheral neuropathy[ICD10: E11.42] Diagnosis: Adult BMI 50.0-59.9 kg/sq m[ICD10: Z68.43] Diagnosis: Diarrhea[ICD10: R19.7] Diagnosis: Syncope and collapse[ICD10: R55] Diagnosis: Family history of seizures[ICD10: Z84.89] [facility] [address] [place], [place] [address] CPT-4: 51366 10/07/19 22 ([id number]) Other Reason/Patient not seen Diagnosis: Patient not seen[ICD10: UXZ.01] [facility] Salvadorsofiya [facility] [address] [place], [place] [address] CPT-4: 15459 09/10/20 21 ([id number]) (EST PT) EXPANDED PROBLEM FOCUSED TELEHEALTH VISIT Diagnosis: Type 2 diabetes mellitus with peripheral neuropathy[ICD10: E11.42] Diagnosis: GERD (gastroesophageal reflux disease)[ICD10: K21.9] Diagnosis: Hyperlipidemia, unspecified[ICD10: E78.5] Diagnosis: Diarrhea[ICD10: R19.7] [facility] Salvadorsofi[facility] [address] [place], [place] [address] CPT-4: 81392 08/13/20 21 ([id number]) (EST PT) EXPANDED PROBLEM FOCUSED TELEHEALTH VISIT Diagnosis: Type 2 diabetes mellitus with peripheral neuropathy[ICD10: E11.42] Diagnosis: GERD (gastroesophageal reflux disease)[ICD10: K21.9] Diagnosis: Hyperlipidemia, unspecified[ICD10: E78.5] Diagnosis: Dyspnea, unspecified[ICD10: R06.00] [facility] [address] [place], [place] [address] CPT-4: 61716 07/06/20 21 ([id number]) (EST PT) EXPANDED PROBLEM FOCUSED TELEHEALTH VISIT Diagnosis: COVID-19 virus RNA test result positive at limit of detection[ICD10: U07.1] Diagnosis: Type 2 diabetes mellitus with peripheral neuropathy[ICD10: E11.42] Diagnosis: GERD (gastroesophageal reflux disease)[ICD10: K21.9] Diagnosis: Adjustment disorder with mixed anxiety and depressed mood[ICD10: F43.23] [facility] [address] [place], [place] [address] CPT-4: 56830 06/10/20 21 ([id number]) (EST PT) DETAILED TELEHEALTH VISIT Diagnosis: Upper respiratory infection[ICD10: J06.9] Diagnosis: Type 2 diabetes mellitus with peripheral neuropathy[ICD10: E11.42] [facility] [address] [place], [place] [address] CPT-4: 57692 06/02/20 21 ([id number]) (EST PT) EXPANDED PROBLEM FOCUSED TELEHEALTH VISIT Diagnosis: Syncope and collapse[ICD10: R55] Diagnosis: Type 2 diabetes mellitus with peripheral neuropathy[ICD10: E11.42] Diagnosis: Family history of seizures[ICD10: Z84.89] Diagnosis: Hypertensive heart disease with heart failure[ICD10: I11.0] Diagnosis: Chronic kidney disease, stage 2 (mild)[ICD10: N18.2] Chivogenevieve [facility] [address] [place], [place] [address] CPT-4: 60064 05/20/20 21 ([id number]) (EST PT) DETAILED TELEHEALTH VISIT Diagnosis: Syncope and collapse[ICD10: R55] Diagnosis: Type 2 diabetes mellitus with peripheral neuropathy[ICD10: E11.42] Diagnosis: Family history of seizures[ICD10: Z84.89] Diagnosis: Hypertensive heart disease with heart failure[ICD10: I11.0] Diagnosis: Chronic kidney disease, stage 2 (mild)[ICD10: N18.2] Diagnosis: Anorexia[ICD10: R63.0] [facility] [address] [place], [place] [address] CPT-4: 40674 04/28/20 21 ([id number]) (EST PT) EXPANDED PROBLEM FOCUSED TELEHEALTH VISIT Diagnosis: Type 2 diabetes mellitus with peripheral neuropathy[ICD10: E11.42] Diagnosis: Hypertensive heart disease with heart failure[ICD10: I11.0] Diagnosis: Post-traumatic stress disorder, unspecified[ICD10: F43.10] Diagnosis: Adjustment disorder with mixed anxiety and depressed mood[ICD10: F43.23] [facility] [address] [place], [place] [address] CPT-4: 58202 04/15/20 21 HOME VISIT EST PATIENT Diagnosis: Type 2 diabetes mellitus with peripheral neuropathy[ICD10: E11.42] Diagnosis: Hypertensive heart disease with heart failure[ICD10: I11.0] [facility] [address] [place], [place] [address] CPT-4: 62459 04/01/20 21 ([id number]) (EST PT) DETAILED TELEHEALTH VISIT Diagnosis: Blister[ICD10: T14.8XXA] Diagnosis: Type 2 diabetes mellitus with peripheral neuropathy[ICD10: E11.42] Diagnosis: Anorexia[ICD10: R63.0] Diagnosis: Obstructive sleep apnea (adult) (pediatric)[ICD10: G47.33] [facility] [address] [place], [place] [address] CPT-4: 76652 03/24/20 21 ([id number]) (EST PT) DETAILED TELEHEALTH VISIT Diagnosis: Type 2 diabetes mellitus with peripheral neuropathy[ICD10: E11.42] Diagnosis: Hypertensive heart disease with heart failure[ICD10: I11.0] Diagnosis: Adjustment disorder with mixed anxiety and depressed mood[ICD10: F43.23] Diagnosis: Encounter for screening for tobacco use[ICD10: Z01.89] [facility] [address] [place], [place] [address] CPT-4: 56978 03/13/20 21 HOME VISIT EST PATIENT Diagnosis: Type 2 diabetes mellitus with peripheral neuropathy[ICD10: E11.42] Diagnosis: Elevated liver enzymes[ICD10: R74.8] Diagnosis: Hyperlipidemia, unspecified[ICD10: E78.5] [facility] [address] [place], [place] [address] CPT-4: 34001 02/12/20 21 HOME VISIT EST PATIENT Diagnosis: Hypertensive heart disease with heart failure[ICD10: I11.0] Diagnosis: Type 2 diabetes mellitus with peripheral neuropathy[ICD10: E11.42] Diagnosis: Chronic kidney disease, stage 2 (mild)[ICD10: N18.2] Diagnosis: History of bladder surgery[ICD10: Z98.890] Diagnosis: Urinary retention with incomplete bladder emptying[ICD10: R33.9] Diagnosis: GERD (gastroesophageal reflux disease)[ICD10: K21.9] [facility] [address] [place], [place] [address] CPT-4: 31426 01/30/20 21 ([id number]) (EST PT) DETAILED TELEHEALTH VISIT Diagnosis: Hypertensive [...] Encounter for screening for depression[ICD10: Z13.31] [facility] [address] [place], [place] [address] CPT-4: 78013 01/14/20 21 HOME VISIT EST PATIENT Diagnosis: Type 2 diabetes mellitus with peripheral neuropathy[ICD10: E11.42] Diagnosis: Hypertensive heart disease with heart failure[ICD10: I11.0] Diagnosis: Obstructive sleep apnea (adult) (pediatric)[ICD10: G47.33] Diagnosis: Anorexia[ICD10: R63.0] [facility] [address] [place] [address] CPT-4: 62459 12/18/19 21 ([id number]) (EST PT) EXPANDED PROBLEM FOCUSED TELEHEALTH VISIT Diagnosis: Superficial burn of multiple sites of right hand, subsequent encounter[ICD10: T23.191D] Diagnosis: Type 2 diabetes mellitus with peripheral neuropathy[ICD10: E11.42] Diagnosis: Essential (primary) hypertension[ICD10: I10] Diagnosis: History of surgery on right wrist[ICD10: Z98.890] Diagnosis: GERD (gastroesophageal reflux disease)[ICD10: K21.9] [facility] [address] [place], [place] [id number] CPT-4: 90106 11/28/19 21 ([id number]) (EST PT) EXPANDED PROBLEM FOCUSED TELEHEALTH VISIT Diagnosis: Type 2 diabetes mellitus with peripheral neuropathy[ICD10: E11.42] Diagnosis: Essential (primary) hypertension[ICD10: I10] Diagnosis: History of surgery on right wrist[ICD10: Z98.890] Anna Culver [facility] [address] [place], [place] [id number] CPT-4: 99714 11/24/19 21 HOME VISIT EST PATIENT Diagnosis: Type 2 diabetes mellitus with peripheral neuropathy[ICD10: E11.42] Diagnosis: Chronic kidney disease, stage 2 (mild)[ICD10: N18.2] Diagnosis: Right wrist pain[ICD10: M25.531] Diagnosis: Essential (primary) hypertension[ICD10: I10] Diagnosis: GERD (gastroesophageal reflux disease)[ICD10: K21.9] Diagnosis: History of surgery on right wrist[ICD10: Z98.890] Diagnosis: Adjustment disorder with mixed anxiety and depressed mood[ICD10: F43.23] Anna Culver [facility] [address] [place], [place] [id number] CPT-4: 94243 10/29/19 21 HOME VISIT EST PATIENT Diagnosis: Type 2 diabetes mellitus with peripheral neuropathy[ICD10: E11.42] Diagnosis: Hypertensive heart disease with heart failure[ICD10: I11.0] Diagnosis: Adjustment disorder with mixed anxiety and depressed mood[ICD10: F43.23] Diagnosis: GERD (gastroesophageal reflux disease)[ICD10: K21.9] Diagnosis: Abnormal urine finding[ICD10: R82.90] Anna Culver [facility] [address] [place], [place] [address] CPT-4: 96435 09/24/20 20 ([id number]) (EST PT) EXPANDED PROBLEM FOCUSED TELEHEALTH VISIT Diagnosis: Type 2 diabetes mellitus with peripheral neuropathy[ICD10: E11.42] Anna Culver [place] [address] [place], [place] [address] CPT-4: 88114 08/26/20 ([id number]) (EST PT) EXPANDED PROBLEM FOCUSED TELEHEALTH VISIT Diagnosis: Type 2 diabetes mellitus with peripheral neuropathy[ICD10: E11.42] Diagnosis: Adjustment disorder with mixed anxiety and depressed mood[ICD10: F43.23] Diagnosis: Polyneuropathy, unspecified[ICD10: G62.9] Anna Culver [facility] [address] [place], [place] [address] CPT-4: 13608 08/19/20 ([id number]) (EST PT) PROBLEM FOCUSED TELEHEALTH VISIT Diagnosis: Type 2 diabetes mellitus with peripheral neuropathy[ICD10: E11.42] Diagnosis: Essential (primary) hypertension[ICD10: I10] Anna [facility] [address] [place], [place] [address] CPT-4: 32064 07/22/20 ([id number]) REMOTE E/M EST. PT 15MINS ([id number]) Diagnosis: Type 2 diabetes mellitus with peripheral neuropathy[ICD10: E11.42] Diagnosis: Essential (primary) hypertension[ICD10: I10] Diagnosis: Encounter for screening, unspecified[ICD10: Z13.9] Anna Culver [facility] [address] [place], [place] [address] CPT-4: G9487 07/08/20 HOME VISIT EST PATIENT Diagnosis: Hypertensive heart disease with heart failure[ICD10: I11.0] Diagnosis: Chronic kidney disease, unspecified[ICD10: N18.9] Diagnosis: Type 2 diabetes mellitus with peripheral neuropathy[ICD10: E11.42] Diagnosis: Hyperlipidemia, unspecified[ICD10: E78.5] Diagnosis: Hypothyroidism, unspecified[ICD10: E03.9] Diagnosis: Encounter for immunization[ICD10: Z23] Diagnosis: (Z12.4-V76.2) Encounter for screening for malignant neoplasm of cervix[ICD10: Z12.4] Anna [facility] [address] [place], [place] [address] CPT-4: 39326 06/11/20 HOME VISIT EST PATIENT Diagnosis: Type 2 diabetes mellitus with peripheral neuropathy[ICD10: E11.42] Diagnosis: Right wrist pain[ICD10: M25.531] Diagnosis: Hypertensive heart disease with heart failure[ICD10: I11.0] Anna Culver [place] [facility] [address] [place], [place] [address] CPT-4: 02251 05/14/20 20 ([id number]) (EST PT) EXPANDED PROBLEM FOCUSED TELEHEALTH VISIT Diagnosis: Type 2 diabetes mellitus with peripheral neuropathy[ICD10: E11.42] Diagnosis: Chronic kidney disease, unspecified[ICD10: N18.9] Diagnosis: (Z12.31-V76.12) Encounter for screening mammogram for malignant neoplasm of breast[ICD10: Z12.31] Diagnosis: (Z12.11-V76.51) Encounter for screening for malignant neoplasm of colon[ICD10: Z12.11] Anna Culver [facility] [address] [place], [place] [address] CPT-4: 78201 04/17/20 20 ([id number]) (EST PT) EXPANDED PROBLEM FOCUSED TELEHEALTH VISIT Diagnosis: Essential (primary) hypertension[ICD10: I10] Diagnosis: Adult BMI 50.0-59.9 kg/sq m[ICD10: Z68.43] Anna Culver [facility] [address] [place], [place] [address] CPT-4: 43134 03/21/20 20 ([id number]) (EST PT) EXPANDED PROBLEM FOCUSED TELEHEALTH VISIT Diagnosis: Type 2 diabetes mellitus with peripheral neuropathy[ICD10: E11.42] Diagnosis: Essential (primary) hypertension[ICD10: I10] Diagnosis: Abrasion of toe[ICD10: S90.416A] Diagnosis: Encounter for screening for malignant neoplasm of cervix[ICD10: Z12.4] Diagnosis: Obstructive sleep apnea (adult) (pediatric)[ICD10: G47.33] Anna Palomo [facility] [address] [place], [place] [address] CPT-4: 84437 02/14/20 20 ([id number]) (EST PT) EXPANDED PROBLEM FOCUSED TELEHEALTH VISIT Diagnosis: Type 2 diabetes mellitus with peripheral neuropathy[ICD10: E11.42] Diagnosis: Essential (primary) hypertension[ICD10: I10] Anna Culver [facility] [address] [place] [address] CPT-4: 32662 01/24/20 ([id number]) (EST PT) EXPANDED PROBLEM FOCUSED TELEHEALTH VISIT Diagnosis: Type 2 diabetes mellitus with peripheral neuropathy[ICD10: E11.42] Diagnosis: Essential (primary) hypertension[ICD10: I10] Diagnosis: [facility] [place] eye[ICD10: H10.029] Diagnosis: Syncope and collapse[ICD10: R55] Diagnosis: Encounter for screening for tobacco use[ICD10: Z01.89] Annahussein Culver [facility] [address] [place], [place] [address] CPT-4: 99916 01/01/20 HOME VISIT EST PATIENT Diagnosis: Adjustment disorder with mixed anxiety and depressed mood[ICD10: F43.23] Diagnosis: Hypertensive heart disease with heart failure[ICD10: I11.0] Diagnosis: Adult BMI 50.0-59.9 kg/sq m[ICD10: Z68.43] Anna [facility] [address] [place], [place] [address] CPT-4: 29042 11/28/19 HOME VISIT EST PATIENT Diagnosis: Essential (primary) hypertension[ICD10: I10] Diagnosis: Type 2 diabetes mellitus without complications[ICD10: E11.9] Diagnosis: Obstructive sleep apnea (adult) (pediatric)[ICD10: G47.33] Diagnosis: Asthma[ICD10: J45.909] Diagnosis: Adjustment disorder with mixed anxiety and depressed mood[ICD10: F43.23] Anna Culver [facility] [address] [place], [place] [address] CPT-4: 05565 10/17/19 HOME VISIT EST PATIENT Diagnosis: Type 2 diabetes mellitus without complications[ICD10: E11.9] Diagnosis: Hypertensive heart disease with heart failure[ICD10: I11.0] Diagnosis: Chronic kidney disease, unspecified[ICD10: N18.9] Diagnosis: Mixed incontinence[ICD10: N39.46] Anna [facility] [address] [place] [address] CPT-4: 95225 09/19/20 HOME VISIT EST PATIENT Diagnosis: Chronic kidney disease, unspecified[ICD10: N18.9] Diagnosis: Essential (primary) hypertension[ICD10: I10] Diagnosis: Hypertensive heart disease with heart failure[ICD10: I11.0] Diagnosis: Hypothyroidism, unspecified[ICD10: E03.9] Diagnosis: Mixed incontinence[ICD10: N39.46] Diagnosis: Type 2 diabetes mellitus without complications[ICD10: E11.9] [facility] [address] [place], [place] [address] CPT-4: 38628 07/04/20 HOME VISIT EST PATIENT Diagnosis: Hyperlipidemia, unspecified[ICD10: E78.5] Diagnosis: Hypothyroidism, unspecified[ICD10: E03.9] Diagnosis: Mixed incontinence[ICD10: N39.46] Diagnosis: Type 2 diabetes mellitus without complications[ICD10: E11.9] Diagnosis: Chronic kidney disease, unspecified[ICD10: N18.9] Diagnosis: Obstructive sleep apnea (adult) (pediatric)[ICD10: G47.33] Diagnosis: Hypertensive heart disease with heart failure[ICD10: I11.0] [place] [id number] CPT-4: 35204 06/21/20 HOME VISIT EST PATIENT Diagnosis: Mixed incontinence[ICD10: N39.46] Diagnosis: Type 2 diabetes mellitus without complications[ICD10: E11.9] Diagnosis: Hypothyroidism, unspecified[ICD10: E03.9] Diagnosis: Hyperlipidemia, unspecified[ICD10: E78.5] Diagnosis: Apnea, not elsewhere classified[ICD10: R06.81] Diagnosis: Essential (primary) hypertension[ICD10: I10] Diagnosis: Encounter for screening, unspecified[ICD10: Z13.9] Diagnosis: Encounter for immunization[ICD10: Z23] Charlene Oropeza [facility] [address] [place], [place] [address] CPT-4: 42704 05/24/20 (IND) Independent Lab Draw Diagnosis: Patient Not Seen[ICD10: UXZ.01] [facility] [address] [place], [place] [address] CPT-4: IND 04/27/20 HOME VISIT EST PATIENT Diagnosis: Hypertensive heart disease with heart failure[ICD10: I11.0] Diagnosis: Unspecified asthma, uncomplicated[ICD10: J45.909] Diagnosis: Type 2 diabetes mellitus without complications[ICD10: E11.9] Diagnosis: Encounter for immunization[ICD10: Z23] Diagnosis: Encounter for screening for malignant neoplasm of cervix[ICD10: Z12.4] Charlene Oropeza [facility] [address] [place], [place] [address] CPT-4: 45752 04/25/20 19 HOME VISIT EST PATIENT Diagnosis: Unspecified asthma, uncomplicated[ICD10: J45.909] Diagnosis: Apnea, not elsewhere classified[ICD10: R06.81] Diagnosis: Body mass index (BMI) 50-59.9 , adult[ICD10: Z68.43] Diagnosis: Essential (primary) hypertension[ICD10: I10] Diagnosis: Chest pain, unspecified[ICD10: R07.9] Diagnosis: Encounter for preprocedural cardiovascular examination[ICD10: Z01.810] Rasta [facility] [address] [place] [address] CPT-4: 28227 03/28/20 19 HOME VISIT EST PATIENT Diagnosis: Apnea, not elsewhere classified[ICD10: R06.81] Diagnosis: Body mass index (BMI) 50-59.9 , adult[ICD10: Z68.43] Rasta [facility] [address] [place], [place] [address] CPT-4: 13412 02/15/20 19 HOME VISIT EST PATIENT Diagnosis: Apnea, not elsewhere classified[ICD10: R06.81] Diagnosis: Essential (primary) hypertension[ICD10: I10] Diagnosis: Type 2 diabetes mellitus without complications[ICD10: E11.9] Diagnosis: Unspecified asthma, uncomplicated[ICD10: J45.909] Diagnosis: Wheezing[ICD10: R06.2] [facility] [address] [place], [place] [address] CPT-4: 84887 02/01/20 19 HOME VISIT EST PATIENT Diagnosis: Type 2 diabetes mellitus without complications[ICD10: E11.9] Diagnosis: Essential (primary) hypertension[ICD10: I10] Diagnosis: Unspecified asthma, uncomplicated[ICD10: J45.909] Diagnosis: Edema, unspecified[ICD10: R60.9] Diagnosis: Hypothyroidism, unspecified[ICD10: E03.9] Diagnosis: Abnormal electrocardiogram [ECG] [EKG][ICD10: R94.31] Rasta Palafox [facility] [address] [place], [place] [address] CPT-4: 20360 12/28/19 19 HOME VISIT EST PATIENT Diagnosis: Type 2 diabetes mellitus without complications[ICD10: E11.9] Diagnosis: Essential (primary) hypertension[ICD10: I10] Diagnosis: Unspecified asthma, uncomplicated[ICD10: J45.909] Diagnosis: Wheezing[ICD10: R06.2] Diagnosis: Chest pain, unspecified[ICD10: R07.9] Diagnosis: Abnormal electrocardiogram [ECG] [EKG][ICD10: R94.31] Diagnosis: Adjustment disorder with mixed anxiety and depressed mood[ICD10: F43.23] Diagnosis: Post-traumatic stress disorder, unspecified[ICD10: F43.10] [facility] [address] [place], [place] [address] CPT-4: 81150 11/29/19 19 HOME VISIT EST PATIENT Diagnosis: Type 2 diabetes mellitus without complications[ICD10: E11.9] Diagnosis: Essential (primary) hypertension[ICD10: I10] Diagnosis: Chronic kidney disease, unspecified[ICD10: N18.9] Diagnosis: Headache[ICD10: R51] [facility] [address] [place], [place] [address] CPT-4: 69029 10/04/19 19 HOME VISIT EST PATIENT Diagnosis: Type 2 diabetes mellitus without complications[ICD10: E11.9] Diagnosis: Essential (primary) hypertension[ICD10: I10] Diagnosis: Chronic kidney disease, unspecified[ICD10: N18.9] Diagnosis: Hypothyroidism, unspecified[ICD10: E03.9] Diagnosis: Encounter for screening, unspecified[ICD10: Z13.9] Diagnosis: Post-traumatic stress disorder, unspecified[ICD10: F43.10] Diagnosis: Adjustment disorder with mixed anxiety and depressed mood[ICD10: F43.23] [facility] [address] [place], [place] [address] CPT-4: 88688 09/06/20 18 HOME VISIT EST PATIENT Diagnosis: Adjustment disorder with mixed anxiety and depressed mood[ICD10: F43.23] Diagnosis: Post-traumatic stress disorder, unspecified[ICD10: F43.10] Diagnosis: Essential (primary) hypertension[ICD10: I10] Diagnosis: Unspecified asthma, uncomplicated[ICD10: J45.909] Diagnosis: Wheezing[ICD10: R06.2] Diagnosis: Type 2 diabetes mellitus without complications[ICD10: E11.9] [place] [address] CPT-4: 65205 08/09/20 18 HOME VISIT EST PATIENT Diagnosis: Adjustment disorder with mixed anxiety and depressed mood[ICD10: F43.23] Diagnosis: Post-traumatic stress disorder, unspecified[ICD10: F43.10] Diagnosis: Essential (primary) hypertension[ICD10: I10] Diagnosis: Unspecified asthma, uncomplicated[ICD10: J45.909] Diagnosis: Wheezing[ICD10: R06.2] Diagnosis: Type 2 diabetes mellitus without complications[ICD10: E11.9] Diagnosis: Edema, unspecified[ICD10: R60.9] [place] [address] CPT-4: 43965 07/12/20 18 HOME VISIT EST PATIENT Diagnosis: Post-traumatic stress disorder, unspecified[ICD10: F43.10] Diagnosis: Adjustment disorder with mixed anxiety and depressed mood[ICD10: F43.23] Diagnosis: Type 2 diabetes mellitus without complications[ICD10: E11.9] Diagnosis: Essential (primary) hypertension[ICD10: I10] Diagnosis: Unspecified asthma, uncomplicated[ICD10: J45.909] Diagnosis: Wheezing[ICD10: R06.2] Diagnosis: Edema, unspecified[ICD10: R60.9] Diagnosis: equipment [employer] (current) use of non-steroidal anti-inflammatories (NSAID)[ICD10: Z79.1] [place] [address] CPT-4: 59952 06/14/20 18 HOME VISIT NEW PATIENT Diagnosis: Type 2 [...] index (BMI) 50-59.9 , adult[ICD10: Z68.43] [facility] [address] [place] [address] CPT-4: 02075 05/31/20 18 Plan of Care Planned Activity Notes Codes [...] for diabetic education to address further continue araceliempkyle and viktor, intolerance to metformin I11.9-402.90 Hypertensive heart disease without heart failure BP stable with chago and diuretic, will continue to monitor F33.9-296.30 Major depression, recurrent good days/bad days, continue formal MH support, discussed self care Z68.43-V85.43 Adult BMI 50.0-59.9 kg/sq m Note weight gain this visit, discussed impact of weight on managing DM2, patient remains motivated to lose weight 11/09/2023 Appointment: Anna Culver WPtel: [address] [place], [place] [id number] E410 11/09/2023 Patient Education: Diabetes Completed 11/09/2023 Patient Education: Patient Medication Summary Completed 11/09/2023 Patient Education: Hypertension Completed 11/09/2023 Patient Education: Obesity Completed 11/09/2023 Visit Plan: Visit time spent inv olved [...] stable PHQ 2 negative for depression 10/21/2023 Appointment: Anna Culver WPtel: [address] [place] [address] ETV 10/21/2023 Patient Education: Patient Medication Summary Completed 10/21/2023 Patient Education: Diabetes Completed 10/21/2023 Visit Plan: Visit time spent inv olved in medical discussion with patient, including obtaining history from patient, systems review, diagnostic and laboratory test review with patient. Assessment findings and plan reviewed with patient, including time to provide counseling, and education to patient Send copy of labs to Michell Matamoros [phone] E11.42-250.60 Type 2 diabetes mellitus with peripheral neuropathy Continues with varied blood sugars, elevations may be secondary to infectious process, continues with ozempic and januvia will check hgb a1c I11.9-402.90 Hypertensive heart disease without heart failure stable with current medications, will order labs J06.9-465.9 Upper respiratory infection will send prescription for Amoxicillin to local pharmacy 09/20/2023 Appointment: Anna Culver WPtel: [phone] E410 09/20/2023 Patient Education: Patient Medication Summary Completed 09/20/2023 Patient Education: Diabetes Completed 09/20/2023 Patient Education: Hypertension Completed 09/20/2023 Patient Education: Obesity Completed 09/20/2023 Patient Education: Patient Medication Summary Completed 09/15/2023 Visit Plan: Visit time spent inv olved [...] note to Dr. Wayne for review 08/05/2023 Appointment: Anna Culver WPtel: [address] [place] [address] E410 08/05/2023 Patient Education: Diabetes Completed 08/05/2023 Patient Education: Hypertension Completed 08/05/2023 Patient Education: Obesity Completed 08/05/2023 Patient Education: Weight Gain Completed 08/05/2023 Patient Education: Patient Medication Summary Completed 08/05/2023 Care Plan: DME Ordered 08/05/2023 Visit Plan: Visit time spent inv olved [...] 2022, remain motivated for weight loss) 06/24/2023 Appointment: Palomo Anna WPtel: [address] [place], [place] [phone] 06/24/2023 Patient Education: Hypertension Completed 06/24/2023 Patient Education: Depression Completed 06/24/2023 Patient Education: Patient Medication Summary Completed 06/24/2023 Patient Education: Weight Gain Completed 06/24/2023 Patient Education: Diabetes Completed 06/24/2023 Patient Education: Obesity Completed 06/24/2023 Patient Education: Patient Medication Summary Completed 06/03/2023 Patient Education: Patient Medication Summary Completed 05/29/2023 Visit Plan: Visit time spent inv olved in medical discussion with patient, including obtaining history from patient, systems review, diagnostic and laboratory test review with patient. Assessment findings and plan reviewed with patient, including time to provide counseling, and education to patient I11.9-402.90 Hypertensive heart disease BP stable, no edema, will continue lisinopril, HCTZ continue with [employer] Designer Josh Simon MD G47.33 Obstructive sleep apnea (adult), J45.909 Asthma breathing stable, continue utilization of Symbicort, albuterol via neb. or MDI q 4 hrs. prn dyspnea, tolerating CPAP for a few hours nightly continue with Electrical [employer] Observer Jose BOWMAN K21.9 GERD (gastroesophageal reflux disease) symptoms improved, will continue omeprazole to 40mg at HS, continue famotidine, probiotic E11.42 Type 2 diabetes mellitus with peripheral neuropathy, Z68.43 Adult BMI 50.0-59.9 kg/sq m testing BS bid, range 99-133 continue Ozempic 1mg per week and gabapentin continue with Kerrie Pandya OD at [facility] trying to be more active, has step goal of 4000 steps daily, also limiting soda intake G47.00-780.52 Insomnia F33.9-296.30 Major depression, recurrent started on trazodone 50mg by Nichole Hernández, psychology for sleep issues patient feels sleep and mood much improved with this medication continue taking sertraline, buspirone Rexulti continue with [facility] in [place] E78.2 Hyperlipidemia, mixed patient has re-started atorvastatin continue Mediterranean style eating E55.9 Vitamin D deficiency continue cholecalciferol refill sent 05/04/2023 Appointment: Palomo Anna WPtel: [address] [place], [place] [phone] 05/04/2023 Patient Education: Diabetes Completed 05/04/2023 Patient Education: Patient Medication Summary Completed 05/04/2023 Patient Education: Seizures Completed 05/04/2023 Patient Education: Hypertension Completed 05/04/2023 Patient Education: Obesity Completed 05/04/2023 Patient Education: Patient Medication Summary Completed 03/31/2023 Visit Plan: Visit time spent inv olved in medical discussion with patient, including obtaining history from patient, systems review, diagnostic and laboratory test review with patient. Assessment findings and plan reviewed with patient, including time to provide counseling, and education to patient I11.9-402.90 Hypertensive heart disease BP stable, no edema, will continue lisinopril, HCTZ continue with [employer] Design[employer] Josh Simon MD G47.33 Obstructive sleep apnea (adult), J45.909 Asthma breathing stable, continue utilization of Symbicort, albuterol via neb. or MDI q 4 hrs. prn dyspnea, tolerating CPAP for a few hours nightly continue with Electrical [employer] Observer Jose BOWMAN K21.9 GERD (gastroesophageal reflux disease) symptoms improved, will continue omeprazole to 40mg at HS, continue famotidine, probiotic E11.42 Type 2 diabetes mellitus with peripheral neuropathy, Z68.43 Adult BMI 50.0-59.9 kg/sq m testing BS bid, range 99-133 continue Ozempic 1mg per week and gabapentin continue with Kerrie Pandya OD at [facility] trying to be more active, has step goal of 4000 steps daily, also limiting soda intake G47.00-780.52 Insomnia F33.9-296.30 Major depression, recurrent started on trazodone 50mg by Nichole Hernández, psychology for sleep issues patient feels sleep and mood much improved with this medication continue taking sertraline, buspirone Rexulti continue with [facility] in [place] E78.2 Hyperlipidemia, mixed patient has re-started atorvastatin continue Mediterranean style eating E55.9 Vitamin D deficiency continue cholecalciferol refill sent 01/27/2023 Appointment: Palomo Anna WPtel: [address] [place], [place] [phone] 01/27/2023 Patient Education: Patient Medication Summary Completed 01/27/2023 Patient Education: Diabetes Completed 01/27/2023 Patient Education: Hypertension Completed 01/27/2023 Patient Education: Depression Completed 01/27/2023 Patient Education: Obesity Completed 01/27/2023 Patient Education: Patient Medication Summary Completed 12/24/2022 Patient Education: Patient Medication Summary Completed 12/23/2022 Visit Plan: Visit time spent inv olved [...] min. < 89% SpO2 continue with [employer] Josh Simon MD G47.33 Obstructive sleep apnea (adult), J45.909 Asthma breathing stable, continue utilization of Symbicort, albuterol via neb. or MDI q 4 hrs. prn dyspnea, CPAP use continues nightly continue with Electrical [employer] Observer Jose BOWMAN K21.9 GERD (gastroesophageal reflux disease) [...] gabapentin continue with Kerrie Pandya OD at [facility] (06/30/21) F33.9-296.30 Major depression, recurrent 11/23/2021 PHQ 9 Score 0 continue taking sertraline, buspirone Rexulti continue with [facility] Obrien in [place] canceled visit this month, next December 2021 [...] urinary stimulator implant continue with Urologist 11/23/2022 Appointment: Anna Culver WPtel: [address] [place] [address] E410 11/23/2022 Patient Education: Depression Completed 11/23/2022 Patient Education: Diabetes Completed 11/23/2022 Patient Education: Patient Medication Summary Completed 11/23/2022 Patient Education: Hypertension Completed 11/23/2022 Patient Education: Obesity Completed 11/23/2022 Visit Plan: Visit time spent inv olved [...] min. < 89% SpO2 continue with [employer] Designer Josh Simon MD will check labs this visit G47.33 Obstructive sleep apnea (adult), J45.909 Asthma breathing stable, continue utilization of Symbicort, albuterol via neb. or MDI q 4 hrs. prn dyspnea, CPAP use continues nightly continue with Electrical [employer] Observer Jose BOWMAN last visit 05/31/2022 E11.42 Type 2 diabetes mellitus with peripheral neuropathy, Z68.43 Adult BMI 50.0-59.9 kg/sq m stable glucose monitor - testing bid FBS 115, trying to get closer to 100 continue Ozempic 1mg per week and gabapentin 06/23/2022 Hgb A1C 5.8, GFR 94 continue with Kerrie Pandya OD at [facility] (06/30/21) note 3 pound weight gain, admits to eating more over the holidays, continues to be active and motivated to lose weight, encouraged to limit carbs will check labs this visit F33.9-296.30 Major depression, recurrent continue taking sertraline, buspirone Seroquel complete and has been replaced with Rexulti continue with Marian Obrien in [place] will check labs this visit S61.202A-883.0 Open [...] top gel 1% qid prn arthralgia/myalgia 2022 Appointment: Anna Culver WPtel: [address] [place] [address] E4 2022 Patient Education: Hypertension Completed 2022 Patient Education: Patient Medication Summary Completed 2022 Patient Education: Diabetes Completed 2022 Patient Education: Depression Completed 2022 Patient Education: Obesity Completed 2022 Visit Plan: I10 Essential (prima ry) hypertension, BP stable, will continue lisinopril, HCTZ 07/02/20 Echo: EF 60%, mild conc. LVH 05/14/20 EKG: NSR 05/14/20 Noct. Pulse Ox.: 7 min. < 89% SpO2 continue with [employer] Josh Simon MD G47.33 Obstructive sleep apnea (adult), J45.909 Asthma breathing stable CPAP use continues-was changed to nasal pillow mask at last pulmonogy visit, patient feels this has been helpful continue utilization of Symbicort, albuterol via neb. or MDI q 4 hrs. prn dyspnea, continue with [employer] Jose BOWMAN last visit 05/31/2022-visit note reviewed previously E11.42 Type 2 diabetes mellitus with peripheral neuropathy, Z68.43 Adult BMI 50.0-59.9 kg/sq m stable glucose monitor range 99-143 - testing bid FBS 102 this morning continue Ozempic 1mg per week and gabapentin 06/23/2022 Hgb A1C 5.8, GFR 94 11/02/21 HgbA1C 5.6, GFR >100 continue with Kerrie Pandya OD at [facility] (06/30/21) Discussed benefits of weight loss clinic-patient [...] has been replaced with [employer] continue with [employer] in [place] B36.9-111.9 Fungal infection of skin inner left [...] top gel 1% qid prn arthralgia/myalgia 08/17/2022 Appointment: Palomo Anna WPtel: [address] [place] [address] E410 08/17/2022 Patient Education: Hypertension Completed 08/17/2022 Patient Education: Patient Medication Summary Completed 08/17/2022 Patient Education: Diabetes Completed 08/17/2022 Patient Education: Obesity Completed 08/17/2022 Patient Education: VIS - Pneumo (23 Valent) Completed 08/17/2022 Patient Education: Patient Medication Summary Completed 08/11/2022 Patient Education: Patient Medication Summary Completed 08/09/2022 Patient Education: Patient Medication Summary Completed 07/31/2022 Visit Plan: I10 Essential (prima ry) hypertension, BP stable, will continue lisinopril, HCTZ 07/02/20 Echo: EF 60%, mild conc. LVH 05/14/20 EKG: NSR 05/14/20 Noct. Pulse Ox.: 7 min. < 89% SpO2 continue with [employer] Josh Simon MD will check labs this visit G47.33 Obstructive sleep apnea (adult), J45.909 Asthma breathing stable CPAP use continues-was changed to nasal pillow mask at last pulmonogy visit, patient feels this has been helpful continue utilization of Symbicort, albuterol via neb. or MDI q 4 hrs. prn dyspnea, continue with [employer] Jose BOWMAN last visit 05/31/2022-visit note reviewed E11.42 Type 2 diabetes mellitus with peripheral neuropathy, Z68.43 Adult BMI 50.0-59.9 kg/sq m stable glucose monitor range 103-156 - testing bid continue Ozempic 1mg per week and gabapentin 11/02/21 HgbA1C 5.6, GFR >100 continue with Kerrie Pandya OD at [facility] (06/30/21) discussed apps on her phone that [...] with [employer] continue with Marian Obrien in [place] Z28.21-V64.06 Influenza vaccine refused refused influenza vaccine, [...] times per day continue with Urologist 06/23/2022 Appointment: Anna Culver WPtel: [phone] E4 06/23/2022 Patient Education: Weight Gain Completed 06/23/2022 Patient Education: Diabetes Completed 06/23/2022 Patient Education: Patient Medication Summary Completed 06/23/2022 Patient Education: Hypertension Completed 06/23/2022 Patient Education: Patient Medication Summary Completed 04/23/2022 Visit Plan: 04/21/2022 Patient Education: Patient Medication Summary Completed 04/21/2022 Visit Plan: I10 Essential (prima ry) hypertension, BP within goal continue lisinopril, HCTZ 07/02/20 Echo: EF 60%, mild conc. LVH 05/14/20 EKG: NSR 05/14/20 Noct. Pulse Ox.: 7 min. < 89% SpO2 continue with [employer] Josh Simon MD E11.42 Type 2 diabetes mellitus with peripheral neuropathy, Z68.43 Adult BMI 50.0-59.9 kg/sq m glucose controlled, however body weight remains an issue glucose monitor averaging 100s-130s - bid increase Ozempic to maximum: 1mg per week, continue gabapentin 11/02/21 HgbA1C 5.6, GFR >100 continue with Kerrie Pandya OD at [facility] (06/30/21) encouraged to increase daily step count [...] to assist with weight loss continue with [facility] in [place] Below historical items not addressed this visit: Z00.00-V70.9 (Z00.00-V70.9) Encounter for general adult medical examination without abnormal findings 02/11/22 AWV complete G47.33 Obstructive sleep apnea (adult), J45.909 Asthma breathing stable CPAP use encouraged but pt seems uncertain of benefit continue utilization of Symbicort, albuterol via neb. or MDI q 4 hrs. prn dyspnea, continue with [employer] Jose BOWMAN E03.9 Hypothyroidism continue levothyroxine 11/02/21 [...] times per day continue with Urologist 04/19/2022 Appointment: Chivo Bishop WPtel: [phone] E410 04/19/2022 Patient Education: Diabetes Completed 04/19/2022 Patient Education: Patient Medication Summary Completed 04/19/2022 Patient Education: Weight Gain Completed 04/19/2022 Appointment: Chivo Bishop WPtel: [phone] E410 02/11/2022 Patient Education: Patient Medication Summary Completed 02/11/2022 Patient Education: Diabetes Completed 02/11/2022 Patient Education: AWV Preventative Screening Schedule 2020 Completed 02/11/2022 Patient Education: [employer] Disc[employer] Card Patient Savings Message Completed 02/11/2022 Patient Education: Patient Medication Summary Completed 01/07/2022 Patient Education: Patient Medication Summary Completed 01/04/2022 Visit Plan: The following plan c onsists [...] min. < 89% SpO2 continue with [employer] Josh Simon MD E11.42 Type 2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
--- OUTSIDE RECORDS SUMMARY | 2025-04-17 15:11 | XMS_ITS | CCD ---
Author Name Ursula Palafox NP y Address [address] [facility] [address] [place] [address] Phone Organization [id number] Phone Care Team Providers Care Health Information Provider Name Role Phone Unavailable Primary Care Provider Unavailabl e Unavailable Chronic Care Management Unavaila ble Summary Purpose DataExchange Insurance Providers Payer name Policy type / Coverage type Covered green party ID Effective Begin Date Effective End Date SUKI MAYO [id number] Unknown Unknown Family history Mother Diagnosis Age [...] Unknown Disability 05/31/[address]: 278068149 Has never s moked or chewed tobacco 05/31/[address]: 532633684 Never drinks alco hol 05/31/2018 Has the patient ever used illegal drugs? Unknown Has never used illegal drugs 05/31/2018 DNR Order/ Advanced Directive Unknown Full Code 05/31/2018 Allergies, Adverse Reactions, Alerts Substance Reaction Codes Entered Date Inactivated Date Status OxyContin itch, RxNorm: 858008 01/13/2021 No Inactive Da te Active *No [...] toe ICD-10: S90.416A ICD-9: 917.0 02/14/2020 Resolved [place] eye ICD-10: H10.029 ICD-9: 372.03 12/29/2019 Resolved [...] Fill Instructions montelukast 10 mg tablet RxNorm: 905186 Take 1 Tablet(s) Oral every day 024 2023 Inactive gabapentin 300 mg capsule RxNorm: 352691 Take 1 Capsule(s) Oral three times a day 024 2023 Inactive hydrocortisone 2.5 % topical cream RxNorm: 950851 Apply Application Topical two times a day a thin layer to the affected area(s) 024 No Stop Date Active amoxicillin 500 mg tablet RxNorm: 215654 Take 1 Tablet(s) Oral two times a day 024 2023 Inactive omeprazole 40 mg capsule,delayed release RxNorm: 092853 Take 1 Capsule(s) Oral HS 024 2023 Inactive Januvia 100 mg tablet RxNorm: 092710 Take 1 Tablet(s) Oral every day 023 2023 Inactive amoxicillin 250 mg capsule RxNorm: 960276 Take 1 Capsule(s) Oral three times a day 023 2022 Inactive amoxicillin 500 mg tablet RxNorm: 518970 Take 1 Tablet(s) Oral three times a day 023 2022 Inactive Ozempic 1 mg/dose (4 mg/3 mL) subcutaneous pen injector RxNorm: 4923469 INJECT 1 UNITS DOSE SUBCUTANEOUSLY ON TUESDAY OF EACH WEEK 023 2023 Inactive MED IS ON B/O omeprazole 40 mg capsule,delayed release RxNorm: 048804 Take 1 Capsule(s) Oral 023 2022 Inactive Januvia 50 mg tablet RxNorm: 745696 Take 1 Tablet(s) Oral two times a day 023 2023 Inactive famotidine 20 mg tablet RxNorm: 357046 TAKE 1 TABLET BY MOUTH EACH MORNING 023 2023 Inactive Januvia 25 mg tablet RxNorm: 130495 Take 1 Tablet(s) Oral every day 023 2022 Inactive Ozempic 1 mg/dose (4 mg/3 mL) subcutaneous pen injector RxNorm: 8484909 INJECT 1 UNITS DOSE SUBCUTANEOUSLY ON TUESDAY OF EACH WEEK 023 2022 Inactive cetirizine 10 mg tablet RxNorm: 3363314 TAKE (1) TABLET BY MOUTH DAILY 023 2023 Inactive amoxicillin 500 mg tablet RxNorm: 300502 Take 1 Tablet(s) Oral two times a day 023 2022 Inactive omeprazole 40 mg capsule,delayed release RxNorm: 20021111 Take 1 Capsule(s) Oral at bed time 023 2022 Inactive Easy Touch Alcohol Prep Pads RxNorm: 846999 USE EACH MORNING 023 2024 Inactive montelukast 10 mg tablet RxNorm: 867955 Take 1 Tablet(s) Oral every day 023 2022 Inactive gabapentin 300 mg capsule RxNorm: 884920 Take 1 Capsule(s) Oral three times a day 023 2022 Inactive metformin ER 500 mg 24 hr tablet,extended release RxNorm: 9651185 Take 1 Tablet(s) Oral every day with the evening meal 023 2022 Inactive famotidine 20 mg tablet RxNorm: 556827 Take 1 Tablet(s) Oral every morning 023 2022 Inactive levothyroxine 50 mcg tablet RxNorm: 058246 Take 1 Tablet(s) Oral every day 023 2023 [facility] Requested hydrochlorothiazide 25 mg tablet RxNorm: 026150 Take 1 Tablet(s) Oral every day 023 2023 [facility] Requested atorvastatin 20 mg tablet RxNorm: 727520 Take 1 Tablet(s) Oral every night at bedtime 023 2023 Inactive Macrobid 100 mg capsule RxNorm: 458896 1 Capsule(s) Oral every 12 hours with food 023 2022 Inactive omeprazole 40 mg capsule,delayed release RxNorm: 20021111 Take 1 Capsule(s) Oral every night at bedtime 023 2022 Inactive trazodone 50 mg tablet RxNorm: 292744 Administer 1 Tablet(s) Oral every night at bedtime 023 No Stop Date Active cholecalciferol (vitamin D3) 50 mcg (2,000 unit) tablet RxNorm: 262019 Take 1 Tablet(s) Oral every day 023 2023 Inactive Ozempic 1 mg/dose (4 mg/3 mL) subcutaneous pen injector RxNorm: 7294832 USE 1 UNIT DOSE SUBCUTANEOUSLY ON TUE OF EACH WEEK 023 2022 Inactive lisinopril 2.5 mg tablet RxNorm: 131665 Take 1 Tablet(s) Oral every day 023 2022 Inactive Msg From [facility]: Dr. Zapata Requested Ozempic 1 mg/dose (4 mg/3 mL) subcutaneous pen injector RxNorm: 2793750 USE 1 UNIT DOSE SUBCUTANEOUSLY ON TUE OF EACH WEEK 023 2022 Inactive omeprazole 40 mg capsule,delayed release RxNorm: 390800 Take 1 Capsule(s) Oral every night at bedtime 023 2022 Inactive gabapentin 300 mg capsule RxNorm: 469305 Take 1 Capsule(s) Oral three times a day 023 2022 Inactive montelukast 10 mg tablet RxNorm: 962218 Take 1 Tablet(s) Oral every day 023 2022 Inactive omeprazole 20 mg capsule,delayed release RxNorm: 568435 Take 1 Capsule(s) Oral every evening 022 2022 Inactive Alcohol Prep Pads RxNorm: 809984 USE EACH MORNING 022 2021 Inactive E11.42 clotrimazole 1 % topical cream RxNorm: 193143 Apply 1 Application Topical two times a day as needed apply to affected area(s) twice daily until healed 022 2021 Inactive Victoza 2-Sebastián 0.6 mg/0.1 mL (18 mg/3 mL) subcutaneous pen injector RxNorm: 967220 Inject 0.6-1.8 Milligram(s) Subcutaneous once a week Inject 0.6mg/0.1ml week one, 1.2mg/0.2ml week two, 1.8/0.3ml weekly thereafter 022 2021 Inactive ibuprofen 800 mg tablet RxNorm: 870498 Take 1 Tablet(s) Oral Q8H as needed for pain take with food No Stop Date Active Ozempic 1 mg/dose (4 mg/3 mL) subcutaneous pen injector RxNorm: 3622359 Take 1 Unit Dose Subcutaneous QWeek Tuesday 022 2021 Inactive lisinopril 2.5 mg tablet RxNorm: 027184 Take 1 Tablet(s) Oral every day 2021 Inactive lisinopril 2.5 mg tablet RxNorm: 323216 Take 1 Tablet(s) Oral every day 2022 Inactive hydrochlorothiazide 25 mg tablet RxNorm: 361294 Take 1 Tablet(s) Oral every day 022 2021 Inactive Ozempic 1 mg/dose (4 mg/3 mL) subcutaneous pen injector RxNorm: 0396748 Take 1 Unit Dose Subcutaneous QWeek 2021 Inactive famotidine 20 mg tablet RxNorm: 825204 Take 1 Tablet(s) Oral every morning 2021 Inactive levothyroxine 50 mcg tablet RxNorm: 665549 Take 1 Tablet(s) Oral every day 2021 Inactive atorvastatin 20 mg tablet RxNorm: 186622 Take 1 Tablet(s) Oral every night at bedtime 2021 Inactive Cleocin T 1 % lotion RxNorm: 374300 Take 2 Gram(s) Topical every day 022 2021 Inactive Cleocin T 1 % lotion RxNorm: 333784 Take 2 Gram(s) Topical every day 022 2021 Inactive Ozempic 1 mg/dose (4 mg/3 mL) subcutaneous pen injector RxNorm: 6869838 Take 1 Unit Dose Subcutaneous QWeek 022 2021 Inactive Ozempic 0.25 mg or 0.5 mg (2 mg/1.5 mL) subcutaneous pen injector RxNorm: 4983684 INJECT 0.5 MGS SUBCUTANEOUSLY EVERY WEEK 2021 Inactive omeprazole 20 mg capsule,delayed release RxNorm: 702938 Take 1 Capsule(s) Oral every evening 022 2021 Inactive levothyroxine 50 mcg tablet RxNorm: 977629 Take 1 Tablet(s) Oral every day 2021 Inactive atorvastatin 20 mg tablet RxNorm: 819538 Take 1 Tablet(s) Oral every night at bedtime 2021 Inactive This refill negates all other refills of this medication lisinopril 2.5 mg tablet RxNorm: 175595 Take 1 Tablet(s) Oral every day 022 2021 Inactive gabapentin 300 mg capsule RxNorm: 653499 Take 1 Capsule(s) Oral three times a day 2021 Inactive montelukast 10 mg tablet RxNorm: 534409 Take 1 Tablet(s) Oral every day 022 2021 Inactive Myrbetriq 50 mg tablet,extended release RxNorm: 6056413 1 Tablet(s) Oral every day No Stop Date Active cholecalciferol (vitamin D3) 50 mcg (2,000 unit) tablet RxNorm: 063036 Take 1 Tablet(s) Oral every day 022 2022 Inactive Ozempic 0.25 mg or 0.5 mg (2 mg/1.5 mL) subcutaneous pen injector RxNorm: 5614905 inject 0.5 milligrams subcutaneously every week 022 2021 Inactive Ozempic 0.25 mg or 0.5 mg (2 mg/1.5 mL) subcutaneous pen injector RxNorm: 0245674 Take 0.5 Capsule(s) Injection once a week 2021 Inactive omeprazole 20 mg capsule,delayed release RxNorm: 328419 Take 1 Capsule(s) Oral every evening 2020 Inactive Ozempic 0.25 mg or 0.5 mg (2 mg/1.5 mL) subcutaneous pen injector RxNorm: 6656728 Take 0.25 Milligram(s) Subcutaneous once a week 2021 Inactive Easy Touch Alcohol Prep Pads RxNorm: 093975 USE DIRECTED EACH MORNING 2021 Inactive Probiotic 10 billion cell capsule RxNorm: 3398462 Take 1 Capsule(s) Oral every day 2021 Inactive levothyroxine 50 mcg tablet RxNorm: 326753 Take 1 Tablet(s) Oral every day 2020 Inactive Acid [employer] (famotidine) 20 mg tablet RxNorm: 414855 Take 1 Tablet(s) Oral every morning 2020 Inactive Heartburn Relief (famotidine) 10 mg tablet RxNorm: 717267 Take 1 Tablet(s) Oral QAM 2020 Inactive levothyroxine 50 mcg tablet RxNorm: 607079 Take 1 Tablet(s) Oral QD 2020 Inactive Singulair 10 mg tablet RxNorm: 899009 TAKE (1) TABLET BY MOUTH DAILY 2020 Inactive metformin 1,000 mg tablet RxNorm: 836155 1 Tablet(s) Oral two times a day 2021 Inactive lisinopril 2.5 mg tablet RxNorm: 054862 Take 1 Tablet(s) Oral every day 2020 Inactive hydrochlorothiazide 25 mg tablet RxNorm: 441025 Take 1 Tablet(s) Oral every day 021 2020 Inactive ondansetron 4 mg disintegrating tablet RxNorm: 945096 1 Tablet(s) Oral two times a day 2020 Inactive Sudafed 12 Hour 120 mg tablet,extended release RxNorm: 7308425 TAKE 1 TABLET BY MOUTH EVERY 12 HOURS NEEDED 021 2021 Inactive Heartburn Relief (famotidine) 10 mg tablet RxNorm: 865275 Take 1 Tablet(s) Oral every morning 021 2020 Inactive omeprazole 20 mg capsule,delayed release RxNorm: 173600 1 Capsule(s) Oral every evening 021 2020 Inactive sertraline 100 mg tablet RxNorm: 426625 2 Tablet(s) Oral every day 021 2020 Inactive levothyroxine 50 mcg tablet RxNorm: 665758 TAKE (1) TABLET BY MOUTH DAILY 021 2020 Inactive metformin 500 mg tablet RxNorm: 448608 1 Tablet(s) Oral two times a day take with 500mg to equal 1000mg 021 2020 Inactive gabapentin 300 mg capsule RxNorm: 540050 TAKE 1 CAPSULE BY MOUTH THREE TIMES A DAY 021 2020 Inactive lisinopril 2.5 mg tablet RxNorm: 810947 TAKE 1 TABLET BY MOUTH DAILY 021 2020 Inactive gabapentin 300 mg capsule RxNorm: 153515 TAKE 1 CAPSULE BY MOUTH THREE TIMES A DAY 021 2020 Inactive Singulair 10 mg tablet RxNorm: 252934 TAKE (1) TABLET BY MOUTH DAILY 021 2020 Inactive metformin 1,000 mg tablet RxNorm: 271849 1 Tablet(s) Oral two times a day 021 2020 Inactive atorvastatin 40 mg tablet RxNorm: 362451 1 Tablet(s) Oral every day 021 2020 Inactive omeprazole 20 mg capsule,delayed release RxNorm: 147667 1 Capsule(s) Oral every evening 021 2020 Inactive famotidine 10 mg tablet RxNorm: 069270 1 Tablet(s) Oral every morning 021 2020 Inactive Alcohol Prep Pads RxNorm: 608650 USE EACH MORNING 021 2020 Inactive omeprazole 20 mg capsule,delayed release RxNorm: 543733 1 Capsule(s) Oral two times a day 2021 Inactive omeprazole 20 mg capsule,delayed release RxNorm: 831113 TAKE 1 CAPSULE BY MOUTH EVERY DAY 2021 Inactive Macrobid 100 mg capsule RxNorm: 260233 1 Capsule(s) Oral every 12 hours with food 2020 Inactive omeprazole 20 mg capsule,delayed release RxNorm: 195470 1 Capsule(s) Oral two times a day 2021 Inactive metformin 1,000 mg tablet RxNorm: 137000 1 Tablet(s) Oral two times a day 2020 Inactive start on September 11, 2020 metformin 500 mg tablet RxNorm: 162330 1 Tablet(s) Oral two times a day take with 500mg to equal 1000mg 2019 Inactive gabapentin 300 mg capsule RxNorm: 492416 TAKE 1 CAPSULE BY MOUTH THREE TIMES DAILY 2020 Inactive cetirizine 10 mg tablet RxNorm: 6298409 TAKE (1) TABLET BY MOUTH DAILY 2020 Inactive metformin 500 mg tablet RxNorm: 166821 1 Tablet(s) Oral two times a day 2019 Inactive loperamide 2 mg tablet RxNorm: 168894 1 Tablet(s) Oral as needed take one tablet after each loose stool, maximum of 8 tablets in 24 hours 2021 Inactive Sudafed 12 Hour 120 mg tablet,extended release RxNorm: 5732178 TAKE 1 TABLET BY MOUTH EVERY 12 HOURS NEEDED 020 2019 Inactive hydrochlorothiazide 25 mg tablet RxNorm: 291153 TAKE (1) TABLET BY MOUTH EVERY DAY 2019 Inactive omeprazole 20 mg capsule,delayed release RxNorm: 457418 TAKE 1 CAPSULE BY MOUTH EVERY DAY 10/07/ 2021 Inactive metformin 500 mg tablet RxNorm: 176444 1 Tablet(s) Oral every day 2019 Inactive True Metrix Glucose Test Strip RxNorm: 1 Test Strips Miscellaneous two times a day as needed No Stop Date Active metformin 500 mg tablet RxNorm: 486174 1 Tablet(s) Oral every day 2019 Inactive diclofenac sodium 75 mg tablet,delayed release RxNorm: 119225 1 Tablet(s) PO BID 2021 Inactive This refill negates all other refills of this medication Sudafed 12 Hour 120 mg tablet,extended release RxNorm: 5325343 TAKE 1 TABLET BY MOUTH EVERY 12 HOURS NEEDED 020 2019 Inactive True Metrix Glucose Test Strip RxNorm: 1 Test Strips Miscellaneous every morning 020 2019 Inactive 100/container True Metrix Glucose Test Strip RxNorm: 1 Test Strips Miscellaneous QAM 020 2019 Inactive 100/container loperamide 2 mg tablet RxNorm: 528835 1 Tablet(s) Oral as needed take one tablet after each loose stool, maximum of 8 tablets in 24 hours 020 2019 Inactive cetirizine 10 mg tablet RxNorm: 4759326 1 Tablet(s) PO daily 2019 Inactive loperamide 2 mg tablet RxNorm: 694264 1 Tablet(s) Oral as needed take one tablet after each loose stool, maximum of 8 tablets in 24 hours 020 2019 Inactive quetiapine 100 mg tablet RxNorm: 063435 1 Tablet(s) Oral every night at bedtime 020 2019 Inactive levothyroxine 50 mcg tablet RxNorm: 706026 1 Tablet(s) PO daily 020 2020 Inactive gabapentin 300 mg capsule RxNorm: 187667 1 Capsule(s) PO TID 020 2019 Inactive levothyroxine 50 mcg tablet RxNorm: 645543 1 Tablet(s) PO daily 020 2019 Inactive lisinopril 2.5 mg tablet RxNorm: 376401 1 Tablet(s) PO daily 2020 Inactive gabapentin 300 mg capsule RxNorm: 098395 1 Capsule(s) PO TID 2019 Inactive cetirizine 10 mg tablet RxNorm: 0072834 1 Tablet(s) PO daily 2019 Inactive Singulair 10 mg tablet RxNorm: 241458 1 Tablet(s) PO daily 2020 Inactive gentamicin 0.3 % eye drops RxNorm: 172213 1 Drop(s) ophthalmic (eye) four times a day 2019 Inactive gentamicin 0.3 % eye drops RxNorm: 621209 1 Drop(s) ophthalmic (eye) four times a day 2019 Inactive gentamicin 0.3 % eye drops RxNorm: 339024 1 Drop(s) ophthalmic (eye) four times a day 2019 Inactive hydrochlorothiazide 25 mg tablet RxNorm: 159490 1 Tablet(s) Oral every day 2019 Inactive Sudafed 12 Hour 120 mg tablet,extended release RxNorm: 1525979 TAKE (1) TABLET BY MOUTH EVERY 12 HOURS NEEDED 2019 Inactive loperamide 2 mg tablet RxNorm: 450507 1 Tablet(s) Oral as needed take one tablet after each loose stool, maximum of 8 tablets in 24 hours 2019 Inactive loperamide 2 mg tablet RxNorm: 152724 1 Tablet(s) Oral as needed take one tablet after each loose stool, maximum of 8 tablets in 24 hours 020 2019 Inactive atorvastatin 40 mg tablet RxNorm: 100941 1 Tablet(s) Oral every day 2020 Inactive quetiapine 100 mg tablet RxNorm: 375799 1 Tablet(s) Oral every night at bedtime 2019 Inactive sertraline 100 mg tablet RxNorm: 361014 1 Tablet(s) Oral 2019 Inactive omeprazole 20 mg capsule,delayed release RxNorm: 786199 1 Capsule(s) Oral every day 020 2019 Inactive amoxicillin 250 mg capsule RxNorm: 207505 1 Capsule(s) Oral three times a day 2019 Inactive multivitamin with iron-mineral tablet RxNorm: 1 Tablet(s) Oral every day 020 2021 Inactive cetirizine 10 mg tablet RxNorm: 3117411 1 Tablet(s) PO daily 2019 Inactive This refill negates all other refills of this medication. Please do not auto refill Singulair 10 mg tablet RxNorm: 519681 1 Tablet(s) PO daily 2019 Inactive This refill negates all other refills of this medication gabapentin 300 mg capsule RxNorm: 083048 1 Capsule(s) PO TID 2019 Inactive lisinopril 2.5 mg tablet RxNorm: 921575 1 Tablet(s) PO daily 2019 Inactive levothyroxine 50 mcg tablet RxNorm: 145887 1 Tablet(s) PO daily 2019 Inactive This refill negates all other refills of this medication hydrochlorothiazide 25 mg tablet RxNorm: 396583 1 Tablet(s) Oral every day 2019 Inactive fenugreek seed extract 500 mg capsule RxNorm: 1 Capsule(s) Oral three times a day 2021 Inactive Alcohol Prep Pads RxNorm: 838072 1 Patch TOP QAM 020 2020 Inactive loperamide 2 mg tablet RxNorm: 589894 1 Tablet(s) Oral as needed take one [...] 2019 Inactive hydrochlorothiazide 25 mg tablet RxNorm: 435704 1 Tablet(s) Oral every day 2019 Inactive Sudafed 12 Hour 120 mg tablet,extended release RxNorm: 7586063 1 Tablet(s) Oral every 12 hours as needed 2018 Inactive omeprazole 20 mg capsule,delayed release RxNorm: 763689 1 Capsule(s) Oral every day 2019 Inactive Sudafed 12 Hour 120 mg tablet,extended release RxNorm: 8490961 1 Tablet(s) Oral every 12 hours as needed 2018 Inactive pantoprazole 40 mg tablet,delayed release RxNorm: 800929 1 Tablet(s) Oral every day 2018 Inactive discontinue any other H2Blkr. and PPI albuterol sulfate 2.5 mg/3 mL (0.083 %) solution for nebulization RxNorm: 469429 1 Vial Inhalation every four hours as needed as needed for dyspnea 2019 Inactive 60/box. This refill negates all other refills of this medication. Please do not fill early. Please do not auto refill. Symbicort 160 mcg-4.5 mcg/actuation HFA aerosol inhaler RxNorm: 7187404 2 Puff(s) INH BID No Stop Date Active Alcohol Prep Pads RxNorm: 520019 1 Patch TOP QAM 2019 Inactive Ventolin HFA 90 mcg/actuation aerosol inhaler RxNorm: 659850 2 Puff(s) INH QID 2019 Inactive Please do not fill early. Please do not auto refill. This refill negates all other refills of this medication True Metrix Glucose Test Strip RxNorm: 1 Test Strips Miscellaneous QAM 019 2019 Inactive 100/container atorvastatin 40 mg tablet RxNorm: 834113 1 Tablet(s) Oral every day 2019 Inactive buspirone 7.5 mg tablet RxNorm: 134670 1 Tablet(s) PO BID 019 2020 Inactive This refill negates all other refills of this medication hydrochlorothiazide 12.5 mg tablet RxNorm: 063673 1 Tablet(s) PO QAM 019 2019 Inactive levmetamfetamine 50 mg nasal inhaler RxNorm: 1 Unit(s) NASAL Q3-4H Do not use more than every 3 hours or 8 times/24hours 019 2021 Inactive Please do not auto refill. This refill negates all other refills of this medication Ventolin HFA 90 mcg/actuation aerosol inhaler RxNorm: 906306 2 Puff(s) INH QID 019 2018 Inactive Please do not fill early. Please do not auto refill. This refill negates all other refills of this medication Singulair 10 mg tablet RxNorm: 750358 1 Tablet(s) PO daily 019 2019 Inactive This refill negates all other refills of this medication cetirizine 10 mg tablet RxNorm: 8021699 1 Tablet(s) PO daily 019 2019 Inactive This refill negates all other refills of this medication. Please do not auto refill levothyroxine 50 mcg tablet RxNorm: 080199 1 Tablet(s) PO daily 019 2019 Inactive This refill negates all other refills of this medication diclofenac sodium 75 mg tablet,delayed release RxNorm: 147911 1 Tablet(s) PO BID 019 2019 Inactive This refill negates all other refills of this medication ranitidine 150 mg tablet RxNorm: 135744 1 Tablet(s) PO BID 019 2018 Inactive This refill negates all other refills of this medication Calcium 600-D3 Plus (mag-zinc) 600 mg calcium-800 unit-50 mg tablet RxNorm: 1 Tablet(s) PO daily take an additonal tablet for itching. 2018 Inactive This refill negates all other refills of this medication albuterol sulfate 2.5 mg/3 mL (0.083 %) solution for nebulization RxNorm: 674958 1 Vial INH QID 2018 Inactive 60/box. This refill negates all other refills of this medication. Please do not fill early. Please do not auto refill. lisinopril 2.5 mg tablet RxNorm: 658283 1 Tablet(s) PO daily 019 2019 Inactive gabapentin 300 mg capsule RxNorm: 570328 1 Capsule(s) PO TID 019 2019 Inactive atorvastatin 20 mg tablet RxNorm: 185792 1 Tablet(s) PO QHS 2018 Inactive This refill negates all other refills of this medication TRUEplus Lancets 30 gauge RxNorm: 1 Lancets Miscellaneous QAM 019 2018 Inactive 100/box gabapentin 300 mg capsule RxNorm: 817921 1 Capsule(s) PO TID 019 2018 Inactive [place] Complete (iron) 18 mg iron chewable tablet RxNorm: 1 Tablet(s) PO daily 019 2021 Inactive This refill negates all other refills of this medication gabapentin 300 mg capsule RxNorm: 627793 1 Capsule(s) PO TID as needed 019 2018 Inactive True Metrix Glucose Test Strip RxNorm: 1 Test Strips Miscellaneous QAM 019 2018 Inactive 100/container Alcohol Prep Pads RxNorm: 209730 1 Patch TOP QAM 019 2018 Inactive TRUEplus Lancets 30 gauge RxNorm: 1 Lancets Miscellaneous QAM 019 2018 Inactive 100/box lisinopril 2.5 mg tablet RxNorm: 191643 1 Tablet(s) PO daily 019 2018 Inactive ranitidine 150 mg tablet RxNorm: 995384 1 Tablet(s) PO BID 019 2018 Inactive This refill negates all other refills of this medication albuterol sulfate 2.5 mg/3 mL (0.083 %) solution for nebulization RxNorm: 834303 1 Vial INH QID 019 2018 Inactive [...] this medication gabapentin 300 mg capsule RxNorm: 613332 1 Capsule(s) PO TID as needed 019 2018 Inactive atorvastatin 20 mg tablet RxNorm: 510938 1 Tablet(s) PO QHS 019 2018 Inactive This refill negates all other refills of this medication trazodone 50 mg tablet RxNorm: 924313 1 Tablet(s) PO QHS 019 2018 Inactive This refill negates all other refills of this medication Ventolin HFA 90 mcg/actuation aerosol inhaler RxNorm: 058879 2 Puff(s) INH QID 019 2018 Inactive Please do not fill early. Please do not auto refill. This refill negates all other refills of this medication Calcium 600-D3 Plus 600 mg calcium-800 unit-50 mg tablet RxNorm: 1 Tablet(s) PO daily take an additonal tablet for itching. 019 2018 Inactive This refill negates all other refills of this medication Singulair 10 mg tablet RxNorm: 825057 1 Tablet(s) PO daily 019 2018 Inactive This refill negates all other refills of this medication buspirone 7.5 mg tablet RxNorm: 015467 1 Tablet(s) PO BID 019 2018 Inactive This refill negates all other refills of this medication diclofenac sodium 75 mg tablet,delayed release RxNorm: 809260 1 Tablet(s) PO BID 019 2018 Inactive This refill negates all other refills of this medication hydrochlorothiazide 12.5 mg tablet RxNorm: 911025 1 Tablet(s) PO QAM 019 2018 Inactive metoprolol succinate ER 50 mg tablet,extended release 24 hr RxNorm: 009868 1 Tablet(s) PO daily 019 2018 Inactive This refill negates all other refills of this medication levothyroxine 50 mcg tablet RxNorm: 696497 1 Tablet(s) PO daily 019 2018 Inactive This refill negates all other refills of this medication cetirizine 10 mg tablet RxNorm: 5890433 1 Tablet(s) PO daily 019 2018 Inactive This refill negates all other refills of this medication. Please do not auto refill [place] Complete (iron) 18 mg iron chewable tablet RxNorm: 1 Tablet(s) PO daily 019 2018 Inactive This refill negates all other refills of this medication buspirone 7.5 mg tablet RxNorm: 937553 1 Tablet(s) PO BID 019 2018 Inactive cetirizine 10 mg tablet RxNorm: 7551015 1 Tablet(s) PO daily 018 2018 Inactive Guaiasorb DM 10 mg-100 mg/5 mL oral liquid RxNorm: 345605 10 Milliliter(s) PO As needed every 4 hr 018 2018 Inactive Vicks Vaporub 4.7 %-1.2 %-2.6 % topical ointment RxNorm: 3147054 1 Application TOP TID 2018 Inactive levmetamfetamine 50 mg nasal inhaler RxNorm: 1 Unit(s) NASAL Q3-4H 2017 Inactive sertraline 50 mg tablet RxNorm: 415868 1 Tablet(s) PO daily 2018 Inactive Please note dose trazodone 50 mg tablet RxNorm: 455884 1 Tablet(s) PO QHS 2018 Inactive sertraline 50 mg tablet RxNorm: 177985 1 Tablet(s) PO daily 2017 Inactive amoxicillin 500 mg tablet RxNorm: 450788 1 Tablet(s) PO Q12H 2017 Inactive albuterol sulfate 2.5 mg/3 mL (0.083 %) solution for nebulization RxNorm: 818336 1 Vial INH QID 2018 Inactive 60/box. Please do not fill early. Please do not auto refill. Prozac 10 mg capsule RxNorm: 938821 1 Capsule(s) PO daily 2017 Inactive buspirone 7.5 mg tablet RxNorm: 457227 1 Tablet(s) PO BID 2018 Inactive gabapentin 300 mg capsule RxNorm: 615257 1 Capsule(s) PO TID as needed 2018 Inactive hydrochlorothiazide 12.5 mg tablet RxNorm: 852624 1 Tablet(s) PO QAM 2018 Inactive ranitidine 150 mg tablet RxNorm: 135211 1 Tablet(s) PO BID 2018 Inactive Macrobid 100 mg capsule RxNorm: 427978 1 Capsule(s) PO Q12H 018 2017 Inactive Singulair 10 mg tablet RxNorm: 293611 1 Tablet(s) PO daily 2018 Inactive Ventolin HFA 90 mcg/actuation aerosol inhaler RxNorm: 7166355 2 Puff(s) INH QID 018 2018 Inactive Singulair 10 mg tablet RxNorm: 486799 1 Tablet(s) PO daily 018 2017 Inactive buspirone 7.5 mg tablet RxNorm: 965478 1 Tablet(s) PO BID 018 2017 Inactive Prozac 10 mg capsule RxNorm: 457294 1 Capsule(s) PO daily 018 2017 Inactive diclofenac sodium 75 mg tablet,delayed release RxNorm: 474954 1 Tablet(s) PO BID 018 2017 Inactive lisinopril 2.5 mg tablet RxNorm: 938888 1 Tablet(s) PO daily 018 2017 Inactive Neilmed Pediatric Sinus Rinse Refill packet RxNorm: 1 Unit Dose NASAL PRN 018 2021 Inactive metoprolol succinate ER 50 mg tablet,extended release 24 hr RxNorm: 579017 1 Tablet(s) PO daily 018 2017 Inactive levothyroxine 50 mcg tablet RxNorm: 316519 1 Tablet(s) PO daily 018 2017 Inactive TRUEplus Lancets 30 gauge RxNorm: 1 Lancets Miscellaneous QAM 018 2017 Inactive 100/box Ventolin HFA 90 mcg/actuation aerosol inhaler RxNorm: 645246 2 Puff(s) INH QID 018 2017 Inactive Aleve 220 mg capsule RxNorm: 7528621 1 Capsule(s) PO BID 018 2018 Inactive ranitidine 150 mg tablet RxNorm: 457422 1 Tablet(s) PO BID 018 2017 Inactive gabapentin 300 mg capsule RxNorm: 692289 1 Capsule(s) PO TID as needed 018 2017 Inactive atorvastatin 20 mg tablet RxNorm: 698754 1 Tablet(s) PO QHS 018 2017 Inactive True Metrix Glucose Test Strip RxNorm: 1 Test Strips Miscellaneous QAM 018 2017 Inactive 50/container Calcium 600-D3 Plus 600 mg calcium-800 unit-50 mg tablet RxNorm: 1 Tablet(s) PO daily take an additonal tablet for itching. 018 2017 Inactive hydrochlorothiazide 12.5 mg tablet RxNorm: 112623 1 Tablet(s) PO QAM 018 2017 Inactive Flintstones Complete (iron) 18 mg iron chewable tablet RxNorm: 1 Tablet(s) PO daily 018 2017 Inactive True Metrix Glucose Meter RxNorm: miscellaneous 019 2018 Inactive sertraline 50 mg tablet RxNorm: 568791 1 Tablet(s) PO daily 020 2019 Inactive loperamide 2 mg tablet RxNorm: 313404 oral 019 2018 Inactive d-mannose oral powder RxNorm: PO 018 2021 Inactive Symbicort 160 mcg-4.5 mcg/actuation HFA aerosol inhaler RxNorm: 4280449 2 Puff(s) INH BID 019 2018 Inactive Medication Administered No Medication Administered data Results Observation Observation Code Item Item Code Result Date Service Location COMPLETE CBC W/ DIFF WBC 67983 WBC 6690-2 7.7 K/ul 2022 [facility] [address] [place] [address] COMPLETE CBC W/ DIFF WBC 61826 RBC 789-8 4.92 M/uL 2022 [facility] [address] [place] [address] COMPLETE CBC W/ DIFF WBC 75537 Hemoglobin 718-7 12.5 g/dL 2022 [facility] [address] [place] [address] COMPLETE CBC W/ DIFF WBC 71755 Hematocrit 4544-3 38.4 % 2022 [facility] [address] [place] [address] COMPLETE CBC W/ DIFF WBC 98340 MCV 787-2 78.1 fL 2022 [facility] [address] [place] [address] COMPLETE CBC W/ DIFF WBC 35475 MCH 785-6 25.5 pg 2022 [facility] [address] [place] [address] COMPLETE CBC W/ DIFF WBC 52588 MCHC 786-4 32.6 g/dL 2022 [facility] [address] [place] [address] COMPLETE CBC W/ DIFF WBC 81842 RDW 788-0 14.6 % 2022 [facility] [address] [place] [address] COMPLETE CBC W/ DIFF WBC 61967 Platelet Count 777-3 357 K/uL 2022 [facility] [address] [place] [address] COMPLETE CBC W/ DIFF WBC 62206 MPV 48413-2 8.1 fL 2022 [facility] [address] [place] [address] COMPLETE CBC W/ DIFF WBC 84024 Neutrophils % 770-8 63.7 % 2022 [facility] [address] [place] [address] COMPLETE CBC W/ DIFF WBC 22729 Lymphocytes % 736-9 27.9 % 2022 [facility] [address] [place] [address] COMPLETE CBC W/ DIFF WBC 67695 Monocytes % 5905-5 6.8 % 2022 [facility] [address] [place] [address] COMPLETE CBC W/ DIFF WBC 98020 Eosinophils % 713-8 1.2 % 2022 [facility] [address] [place] [address] COMPLETE CBC W/ DIFF WBC 69861 Basophils% 706-2 0.4 % 2022 [facility] [address] [place] [address] COMPLETE CBC W/ DIFF WBC 77392 Absolute Neutrophil 751-8 4905 /ul 2022 [facility] [address] [place] [address] COMPLETE CBC W/ DIFF WBC 42817 Absolute Lymphocyte 88752-5 2148 /ul 2022 [facility] [address] [place] [address] COMPLETE CBC W/ DIFF WBC 72855 Absolute Monocyte 742-7 524 /ul 2022 [facility] [address] [place] [address] COMPLETE CBC W/ DIFF WBC 92837 Absolute Eosinophil 711-2 92 /ul 2022 [facility] [address] [place] [address] COMPLETE CBC W/ DIFF WBC 58434 Absolute Basophil 704-7 31 /ul 2022 [facility] [address] [place] [address] 93077 CHEM 14 (METABOLIC PANEL) 03389 Glucose 2345-7 75 mg/dL 2022 [facility] [address] [place] [address] CHEM 14 (METABOLIC PANEL) 45046 BUN 3094-0 14 mg/dL 2022 [facility] [address] [place] [address] CHEM 14 (METABOLIC PANEL) 24169 Creatinine 2160-0 0.9 mg/dL 2022 [facility] [address] [place] [address] 49355 CHEM 14 (METABOLIC PANEL) 58577 BUN/Creat Ratio 3097-3 16.0 2022 [facility] [address] [place] [address] 44795 CHEM 14 (METABOLIC PANEL) 59567 GFR Estimated 09835-6 87 mL/min/1.73m 2 2022 [facility] [address] [place] [address] 31024 CHEM 14 (METABOLIC PANEL) 96237 Sodium 2951-2 140 mmol/L 2022 [facility] [address] [place] [address] 81350 CHEM 14 (METABOLIC PANEL) 52549 Potassium 2823-3 4.3 mmol/L 2022 [facility] [address] [place] [address] 30346 CHEM 14 (METABOLIC PANEL) 44765 Chloride 2075-0 105 mmol/L 2022 [facility] [address] [place] [address] 14072 CHEM 14 (METABOLIC PANEL) 64688 Total CO2 2028-9 28 mmol/L 2022 [facility] [address] [place] [address] 08613 CHEM 14 (METABOLIC PANEL) 85618 Anion Gap 1863-0 11.3 mEq/L 2022 [facility] [address] [place] [address] 65471 CHEM 14 (METABOLIC PANEL) 14790 Calculated Serum Osmolality 93457-3 289 mOsm/kg 2022 [facility] [address] [place] [address] 80540 CHEM 14 (METABOLIC PANEL) 36513 Albumin 76985-9 3.7 g/dL 2022 [facility] [address] [place] [address] CHEM 14 (METABOLIC PANEL) 00176 Total Protein 2885-2 7.3 g/dL 2022 [facility] [address] [place] [address] CHEM 14 (METABOLIC PANEL) 61421 Globulin 2336-6 3.6 g/dL 2022 [facility] [address] [place] [address] CHEM 14 (METABOLIC PANEL) 31510 Albumin/Globulin Ratio 1759-0 1.0 2022 [facility] [address] [place] [address] CHEM 14 (METABOLIC PANEL) 71964 ALK PHOS 6768-6 100.00 U/L 2022 [facility] [address] [place] [address] CHEM 14 (METABOLIC PANEL) 29972 SGOT/AST 1920-8 15 U/L 2022 [facility] [address] [place] [address] 02814 CHEM 14 (METABOLIC PANEL) 75877 SGPT/ALT 1743-4 35 U/L 2022 [facility] [address] [place] [address] 80317 CHEM 14 (METABOLIC PANEL) 39037 Total Bilirubin 1975-2 0.3 mg/dL 2022 [facility] [address] [place] [address] CHEM 14 (METABOLIC PANEL) 66814 Calcium 34462-0 9.6 mg/dL 2022 [facility] [address] [place] [address] 52748 CHEM 14 (METABOLIC PANEL) 64238 Corrected Calcium 95160-7 10.0 mg/dL 09/21 [facility] [address] [place] [address] 43013 [id number] IN 4548-4 Glyco HGB A1C 26603-2 5.6 % 2022 [facility] [address] [place] [address] [id number] IN 4548-4 eAG 10471-6 114 mg/dL 2022 [facility] [address] [place] [address] COMPLETE CBC W/ DIFF WBC 92790 WBC 6690-2 7.8 K/ul 2022 [facility] [address] [place] [address] COMPLETE CBC W/ DIFF WBC 85740 RBC 789-8 4.32 M/uL 2022 [facility] [address] [place] [address] COMPLETE CBC W/ DIFF WBC 98180 Hemoglobin 718-7 11.5 g/dL 2022 [facility] [address] [place] [address] COMPLETE CBC W/ DIFF WBC 84513 Hematocrit 4544-3 34.6 % 2022 [facility] [address] [place] [address] COMPLETE CBC W/ DIFF WBC 98752 MCV 787-2 80.1 fL 2022 [facility] [address] [place] [address] COMPLETE CBC W/ DIFF WBC 33601 MCH 785-6 26.7 pg 2022 [facility] [address] [place] [address] COMPLETE CBC W/ DIFF WBC 69435 MCHC 786-4 33.3 g/dL 2022 [facility] [address] [place] [address] 24343 COMPLETE CBC W/ DIFF WBC 16294 RDW 788-0 15.2 % 2022 [facility] [address] [place] [address] 54283 COMPLETE CBC W/ DIFF WBC 15508 Platelet Count 777-3 314 K/uL 2022 [facility] [address] [place] [address] 99065 COMPLETE CBC W/ DIFF WBC 55531 MPV 77685-6 8.9 fL 2022 [facility] [address] [place] [address] 61033 COMPLETE CBC W/ DIFF WBC 60960 Neutrophils % 770-8 59.2 % 2022 [facility] [address] [place] [address] 63800 COMPLETE CBC W/ DIFF WBC 56678 Lymphocytes % 736-9 28.1 % 2022 [facility] [address] [place] [address] 64560 COMPLETE CBC W/ DIFF WBC 43510 Monocytes % 5905-5 7.1 % 2022 [facility] [address] [place] [address] 45864 COMPLETE CBC W/ DIFF WBC 88935 Eosinophils % 713-8 5.0 % 2022 [facility] [address] [place] [address] 19894 COMPLETE CBC W/ DIFF WBC 52370 Basophils% 706-2 0.6 % 08/04/ 2023 [facility] [address] [place] [address] COMPLETE CBC W/ DIFF WBC 83606 Absolute Neutrophil 751-8 4618 /ul 2022 [facility] [address] [place] [address] COMPLETE CBC W/ DIFF WBC 65290 Absolute Lymphocyte 75046-3 2192 /ul 2022 [facility] [address] [place] [address] COMPLETE CBC W/ DIFF WBC 59026 Absolute Monocyte 742-7 554 /ul 2022 [facility] [address] [place] [address] COMPLETE CBC W/ DIFF WBC 83515 Absolute Eosinophil 711-2 390 /ul 2022 [facility] [address] [place] [address] COMPLETE CBC W/ DIFF WBC 70330 Absolute Basophil 704-7 47 /ul 2022 [facility] [address] [place] [address] 00563 HDL - CHOL 51126 HDL 2085-9 43 mg/dL 2022 [facility] [address] [place] [address] HDL - CHOL 86872 CHD 48672-7 28 % 2022 [facility] [address] [place] [address] MICROALBUMIN (URINE) 96822 Microalbumin 05658-7 1.3 mg/dL 2022 [facility] [address] [place] [address] MICROALBUMIN (URINE) 17505 Microalbumin/Crea tinine Ratio 35572-9 30 MCG/MGCREAT 2022 [facility] [address] [place] [address] MICROALBUMIN (URINE) 82735 Urine Creatinine 2161-8 42.70 mg/dL 2022 [facility] [address] [place] [address] 78910 DIRECT LDL - CHOL 35848 LDL-Direct 57451-9 93 mg/dL 0 2022 [facility] [address] [place] [address] TRIGLYCERIDES 91661 Triglycerides 2571-8 123 mg/dL 2022 [facility] [address] [place] [address] TRIGLYCERIDES 52915 VLDL 44400-3 25 mg/dL 2022 [facility] [address] [place] [address] CHOLESTEROL 26227 Cholesterol 2093-3 155 mg/dL 2022 [facility] [address] [place] [address] 56412 VITAMIN D 98597 Vitamin D 78449-4 79.4 ng/mL 2022 [facility] [address] [place] [address] PREALBUMIN 07291 Prealbumin 53132-9 22 mg/dL 2022 [facility] [address] [place] [address] CHEM 14 (METABOLIC PANEL) 66446 Glucose 2345-7 88 mg/dL 2022 [facility] [address] [place] [address] 12705 CHEM 14 (METABOLIC PANEL) 19776 BUN 3094-0 19 mg/dL 2022 [facility] [address] [place] [address] 85781 CHEM 14 (METABOLIC PANEL) 47913 Creatinine 2160-0 0.9 mg/dL 2022 [facility] [address] [place] [address] 82600 CHEM 14 (METABOLIC PANEL) 43280 BUN/Creat Ratio 3097-3 20.6 2022 [facility] [address] [place] [address] 28657 CHEM 14 (METABOLIC PANEL) 86825 GFR Estimated 25450-3 82 mL/min/1.73m 2 2022 [facility] [address] [place] [address] 26115 CHEM 14 (METABOLIC PANEL) 46897 Sodium 2951-2 141 mmol/L 2022 [facility] [address] [place] [address] 70640 CHEM 14 (METABOLIC PANEL) 10303 Potassium 2823-3 3.9 mmol/L 2022 [facility] [address] [place] [address] 18284 CHEM 14 (METABOLIC PANEL) 59202 Chloride 2075-0 107 mmol/L 2022 [facility] [address] [place] [address] 91901 CHEM 14 (METABOLIC PANEL) 07354 Total CO2 2028-9 26 mmol/L 2022 [facility] [address] [place] [address] 38813 CHEM 14 (METABOLIC PANEL) 14723 Calculated Serum Osmolality 26002-4 294 mOsm/kg 2022 [facility] [address] [place] [address] 91201 CHEM 14 (METABOLIC PANEL) 54178 Anion Gap 1863-0 11.9 mEq/L 2022 [facility] [address] [place] [address] 06799 CHEM 14 (METABOLIC PANEL) 02618 Albumin 19963-5 3.7 g/dL 2022 [facility] [address] [place] [address] CHEM 14 (METABOLIC PANEL) 78661 Total Protein 2885-2 7.2 g/dL 2022 [facility] [address] [place] [address] CHEM 14 (METABOLIC PANEL) 97458 Globulin 2336-6 3.5 g/dL 2022 [facility] [address] [place] [address] CHEM 14 (METABOLIC PANEL) 77437 Albumin/Globulin Ratio 1759-0 1.1 2022 [facility] [address] [place] [address] CHEM 14 (METABOLIC PANEL) 86485 ALK PHOS 6768-6 89.00 U/L 2022 [facility] [address] [place] [address] CHEM 14 (METABOLIC PANEL) 71091 SGOT/AST 1920-8 14 U/L 2022 [facility] [address] [place] [address] CHEM 14 (METABOLIC PANEL) 39937 SGPT/ALT 1743-4 23 U/L 2022 [facility] [address] [place] [address] CHEM 14 (METABOLIC PANEL) 48302 Total Bilirubin 1975-2 0.4 mg/dL 2022 [facility] [address] [place] [address] CHEM 14 (METABOLIC PANEL) 52033 Calcium 95497-7 9.4 mg/dL 2022 [facility] [address] [place] [address] CHEM 14 (METABOLIC PANEL) 21155 Corrected Calcium 57389-2 9.8 mg/dL 10/21 [facility] [address] [place] [address] [id number] IN 4548-4 Glyco HGB A1C 65956-4 5.6 % 2022 [facility] [address] [place] [address] [id number] IN 4548-4 eAG 22327-1 114 mg/dL 2022 [facility] [address] [place] [address] COMPLETE CBC W/ DIFF WBC 19441 WBC 6690-2 12.4 K/ul 2022 [facility] [address] [place] [address] COMPLETE CBC W/ DIFF WBC 11353 RBC 789-8 4.78 M/uL 2022 [facility] [address] [place] [address] COMPLETE CBC W/ DIFF WBC 32262 Hemoglobin 718-7 12.0 g/dL 2022 [facility] [address] [place] [address] COMPLETE CBC W/ DIFF WBC 04358 Hematocrit 4544-3 38.3 % 2022 [facility] [address] [place] [address] COMPLETE CBC W/ DIFF WBC 05185 MCV 787-2 80.1 fL 2022 [facility] [address] [place] [address] COMPLETE CBC W/ DIFF WBC 30146 MCH 785-6 25.1 pg 2022 [facility] [address] [place] [address] 86188 COMPLETE CBC W/ DIFF WBC 10941 MCHC 786-4 31.4 g/dL 2022 [facility] [address] [place] [address] COMPLETE CBC W/ DIFF WBC 19326 RDW 788-0 14.3 % 2022 [facility] [address] [place] [address] COMPLETE CBC W/ DIFF WBC 59869 Platelet Count 777-3 397 K/uL 2022 [facility] [address] [place] [address] 62496 COMPLETE CBC W/ DIFF WBC 00720 MPV 86896-1 9.0 fL 2022 [facility] [address] [place] [address] COMPLETE CBC W/ DIFF WBC 87894 Neutrophils % 770-8 74.4 % 2022 [facility] [address] [place] [address] 94496 COMPLETE CBC W/ DIFF WBC 16051 Lymphocytes % 736-9 18.3 % 2022 [facility] [address] [place] [address] COMPLETE CBC W/ DIFF WBC 90392 Monocytes % 5905-5 6.3 % 2022 [facility] [address] [place] [address] 83900 COMPLETE CBC W/ DIFF WBC 34728 Eosinophils % 713-8 0.7 % 2022 [facility] [address] [place] [address] COMPLETE CBC W/ DIFF WBC 51960 Basophils% 706-2 0.3 % 2022 [facility] [address] [place] [address] COMPLETE CBC W/ DIFF WBC 19876 Absolute Neutrophil 751-8 9226 /ul 2022 [facility] [address] [place] [address] COMPLETE CBC W/ DIFF WBC 22611 Absolute Lymphocyte 38782-5 2269 /ul 2022 [facility] [address] [place] [address] COMPLETE CBC W/ DIFF WBC 32551 Absolute Monocyte 742-7 781 /ul 2022 [facility] [address] [place] [address] COMPLETE CBC W/ DIFF WBC 54237 Absolute Eosinophil 711-2 87 /ul 2022 [facility] [address] [place] [address] COMPLETE CBC W/ DIFF WBC 89041 Absolute Basophil 704-7 37 /ul 2022 [facility] [address] [place] [address] 05754 VITAMIN B-12 50818 Vitamin B12 2132-9 238 pg/mL 10/21 [facility] [address] [place] [address] 10253 [id number] IN [facility]8 Glyco HGB A1C 74954-2 5.8 % 2021 [facility] [address] [place] [address] 61185 [id number]-[id number] IN [facility] eAG 06454-6 120 mg/dL 2021 [facility] [address] [place] [address] TSH 68889 TSH 37934-8 2.130 uIU/mL 2021 [facility] [address] [place] [address] 00100 CHEM 14 (METABOLIC PANEL) 80347 Glucose 2345-7 73 mg/dL 2021 [facility] [address] [place] [address] 20011 CHEM 14 (METABOLIC PANEL) 84429 BUN 3094-0 13 mg/dL 2021 [facility] [address] [place] [address] 05059 CHEM 14 (METABOLIC PANEL) 72380 Creatinine 2160-0 0.8 mg/dL 2021 [facility] [address] [place] [address] 33738 CHEM 14 (METABOLIC PANEL) 81444 BUN/Creat Ratio 3097-3 15.7 2021 [facility] [address] [place], [place] [address] CHEM 14 (METABOLIC PANEL) 89148 GFR Estimated 05085-9 94 mL/min/1.73m 2 2021 [facility] [address] [place] [address] CHEM 14 (METABOLIC PANEL) 81933 Sodium 2951-2 141 mmol/L 2021 [facility] [address] [place] [address] 14775 CHEM 14 (METABOLIC PANEL) 15476 Potassium 2823-3 4.2 mmol/L 2021 [facility] [address] [place] [address] CHEM 14 (METABOLIC PANEL) 10335 Chloride 2075-0 102 mmol/L 2021 [facility] [address] [place] [address] 50804 CHEM 14 (METABOLIC PANEL) 57561 Total CO2 2028-9 30 mmol/L [address] [facility] [address] [place] [address] 61090 CHEM 14 (METABOLIC PANEL) 89710 Calculated Serum Osmolality 31411-3 291 mOsm/kg 2021 [facility] [address] [place] [address] 31471 CHEM 14 (METABOLIC PANEL) 65167 Anion Gap 1863-0 13.2 mEq/L 2021 [facility] [address] [place] [address] 68660 CHEM 14 (METABOLIC PANEL) 86666 Albumin 92399-6 3.7 g/dL 2021 [facility] [address] [place] [address] 77363 CHEM 14 (METABOLIC PANEL) 19215 Total Protein 2885-2 7.2 g/dL 2021 [facility] [address] [place] [address] 79963 CHEM 14 (METABOLIC PANEL) 45420 Globulin 2336-6 3.5 g/dL 2021 [facility] [address] [place] [address] CHEM 14 (METABOLIC PANEL) 95561 Albumin/Globulin Ratio 1759-0 1.1 2021 [facility] [address] [place] [address] 59296 CHEM 14 (METABOLIC PANEL) 78087 ALK PHOS 6768-6 74.00 U/L 2021 [facility] [address] [place] [address] 60417 CHEM 14 (METABOLIC PANEL) 48641 SGOT/AST 1920-8 15 U/L 2021 [facility] [address] [place] [address] 27949 CHEM 14 (METABOLIC PANEL) 13999 SGPT/ALT 1743-4 35 U/L 2021 [facility] [address] [place] [address] CHEM 14 (METABOLIC PANEL) 99565 Total Bilirubin 1975-2 0.4 mg/dL 2021 [facility] [address] [place] [address] CHEM 14 (METABOLIC PANEL) 35092 Calcium 05615-1 9.6 mg/dL 2021 [facility] [address] [place] [address] CHEM 14 (METABOLIC PANEL) 24977 Corrected Calcium 28400-2 10.0 mg/dL 06/24 [facility] [address] [place] [address] MICROALBUMIN (URINE) 32878 Microalbumin 42361-1 0.6 mg/dL 2021 [facility] [address] [place] [address] MICROALBUMIN (URINE) 52102 Microalbumin/Crea tinine Ratio 79861-4 7 MCG/MGCREAT 2021 [facility] [address] [place] [address] MICROALBUMIN (URINE) 33320 Urine Creatinine 2161-8 84.10 mg/dL 2021 [facility] [address] [place] [address] CHEM 14 (METABOLIC PANEL) 77343 Glucose 2345-7 90 mg/dL 2021 [facility] [address] [place] [address] 55988 CHEM 14 (METABOLIC PANEL) 52570 BUN 3094-0 15 mg/dL 2021 [facility] [address] [place] [address] 29705 CHEM 14 (METABOLIC PANEL) 99694 Creatinine 2160-0 0.8 mg/dL 2021 [facility] [address] [place] [address] CHEM 14 (METABOLIC PANEL) 82138 BUN/Creat Ratio 3097-3 19.1 2021 [facility] [address] [place] [address] 22243 CHEM 14 (METABOLIC PANEL) 80399 GFR Estimated 72744-6 100 mL/min/1.73m 2 [address] [facility] [address] [place] [address] 08751 CHEM 14 (METABOLIC PANEL) 56966 Sodium 2951-2 139 mmol/L 2021 [facility] [address] [place] [address] CHEM 14 (METABOLIC PANEL) 47305 Potassium 2823-3 4.0 mmol/L 2021 [facility] [address] [place] [address] CHEM 14 (METABOLIC PANEL) 59106 Chloride 2075-0 102 mmol/L 2021 [facility] [address] [place] [address] CHEM 14 (METABOLIC PANEL) 30543 Total CO2 2028-9 27 mmol/L 2021 [facility] [address] [place] [address] CHEM 14 (METABOLIC PANEL) 44813 Anion Gap 1863-0 14.0 mEq/L 2021 [facility] [address] [place] [address] CHEM 14 (METABOLIC PANEL) 22269 Calculated Serum Osmolality 36287-5 288 mOsm/kg 2021 [facility] [address] [place] [address] 53351 CHEM 14 (METABOLIC PANEL) 92712 Albumin 45551-6 3.8 g/dL 2021 [facility] [address] [place] [address] 46097 CHEM 14 (METABOLIC PANEL) 53008 Total Protein 2885-2 7.4 g/dL 2021 [facility] [address] [place] [address] 59621 CHEM 14 (METABOLIC PANEL) 73925 Globulin 2336-6 3.6 g/dL 2021 [facility] [address] [place] [address] 24127 CHEM 14 (METABOLIC PANEL) 78549 Albumin/Globulin Ratio 1759-0 1.1 2021 [facility] [address] [place] [address] 86993 CHEM 14 (METABOLIC PANEL) 47959 ALK PHOS 6768-6 58.00 U/L 2021 [facility] [address] [place] [address] 51772 CHEM 14 (METABOLIC PANEL) 16062 SGOT/AST 1920-8 14 U/L 2021 [facility] [address] [place] [address] 59149 CHEM 14 (METABOLIC PANEL) 13304 SGPT/ALT 1743-4 30 U/L 2021 [facility] [address] [place] [address] 31447 CHEM 14 (METABOLIC PANEL) 32335 Total Bilirubin 1975-2 0.4 mg/dL 05/13/ 2022 [facility] [address] [place] [address] CHEM 14 (METABOLIC PANEL) 67972 Calcium 62987-1 9.5 mg/dL 2021 [facility] [address] [place] [address] CHEM 14 (METABOLIC PANEL) 21512 Corrected Calcium 18050-0 9.8 mg/dL 02/12 [facility] [address] [place] [address] DIRECT LDL - CHOL 96262 LDL-Direct 72615-5 221 mg/dL 0 2021 [facility] [address] [place] [address] [id number] IN [facility]84 Glyco HGB A1C 03651-3 5.6 % 2021 [facility] [address] [place] [address] [id number] IN [facility] eAG 85373-7 114 mg/dL 2021 [facility] [address] [place] [address] COMPLETE CBC W/ DIFF WBC 15121 WBC 6690-2 7.1 K/ul 2021 [facility] [address] [place] [address] 01573 COMPLETE CBC W/ DIFF WBC 27604 RBC 789-8 4.43 M/uL 2021 [facility] [address] [place] [address] COMPLETE CBC W/ DIFF WBC 76671 Hemoglobin 718-7 11.9 g/dL 2021 [facility] [address] [place] [address] 69706 COMPLETE CBC W/ DIFF WBC 11575 Hematocrit 4544-3 36.0 % 2021 [facility] [address] [place] [address] 55699 COMPLETE CBC W/ DIFF WBC 03073 MCV 787-2 81.3 fL 2021 [facility] [address] [place] [address] COMPLETE CBC W/ DIFF WBC 40046 MCH 785-6 26.8 pg 2021 [facility] [address] [place] [address] 48600 COMPLETE CBC W/ DIFF WBC 81174 MCHC 786-4 33.0 g/dL 2021 [facility] [address] [place] [address] 32978 COMPLETE CBC W/ DIFF WBC 21706 RDW 788-0 13.9 % 2021 [facility] [address] [place] [address] 51119 COMPLETE CBC W/ DIFF WBC 46509 Platelet Count 777-3 367 K/uL 2021 [facility] [address] [place] [address] COMPLETE CBC W/ DIFF WBC 34792 MPV 77852-4 8.8 fL 2021 [facility] [address] [place] [address] COMPLETE CBC W/ DIFF WBC 15814 Neutrophils % 770-8 65.5 % 2021 [facility] [address] [place] [address] COMPLETE CBC W/ DIFF WBC 04566 Lymphocytes % 736-9 25.8 % 2021 [facility] [address] [place] [address] COMPLETE CBC W/ DIFF WBC 04373 Monocytes % 5905-5 7.1 % 2021 [facility] [address] [place] [address] COMPLETE CBC W/ DIFF WBC 49223 Eosinophils % 713-8 1.0 % 2021 [facility] [address] [place] [address] COMPLETE CBC W/ DIFF WBC 93602 Basophils% 706-2 0.6 % 2021 [facility] [address] [place] [address] COMPLETE CBC W/ DIFF WBC 44008 Absolute Neutrophil 751-8 4651 /ul 2021 [facility] [address] [place] [address] COMPLETE CBC W/ DIFF WBC 90761 Absolute Lymphocyte 43987-6 1832 /ul 2021 [facility] [address] [place] [address] 12193 COMPLETE CBC W/ DIFF WBC 45005 Absolute Monocyte 742-7 504 /ul 2021 [facility] [address] [place] [address] COMPLETE CBC W/ DIFF WBC 34593 Absolute Eosinophil 711-2 71 /ul 2021 [facility] [address] [place] [address] COMPLETE CBC W/ DIFF WBC 14146 Absolute Basophil 704-7 43 /ul 2021 [facility] [address] [place] [address] VITAMIN B-12 44701 Vitamin B12 2132-9 184 pg/mL 11/03 [facility] [address] [place] [address] CHEM 14 (METABOLIC PANEL) 49424 Glucose 2345-7 101 mg/dL 2021 [facility] [address] [place] [address] CHEM 14 (METABOLIC PANEL) 00188 BUN 3094-0 14 mg/dL 2021 [facility] [address] [place] [address] CHEM 14 (METABOLIC PANEL) 72434 Creatinine 2160-0 0.7 mg/dL 2021 [facility] [address] [place] [address] CHEM 14 (METABOLIC PANEL) 22613 BUN/Creat Ratio 3097-3 21.5 2021 [facility] [address] [place] [address]2006 CHEM 14 (METABOLIC PANEL) 27025 GFR Estimated 70803-9 117 mL/min/1.73m 2 [address] [facility] [address] [place] [address] 44062 CHEM 14 (METABOLIC PANEL) 62556 Sodium 2951-2 140 mmol/L 2021 [facility] [address] [place] [address] 43527 CHEM 14 (METABOLIC PANEL) 93532 Potassium 2823-3 4.6 mmol/L 2021 [facility] [address] [place] [address] 21716 CHEM 14 (METABOLIC PANEL) 99538 Chloride 2075-0 106 mmol/L 2021 [facility] [address] [place] [address] 86746 CHEM 14 (METABOLIC PANEL) 20566 Total CO2 2028-9 26 mmol/L 2021 [facility] [address] [place] [address] 38694 CHEM 14 (METABOLIC PANEL) 71576 Anion Gap 1863-0 12.6 mEq/L 2021 [facility] [address] [place] [address] 53155 CHEM 14 (METABOLIC PANEL) 56696 Calculated Serum Osmolality 41326-4 291 mOsm/kg 2021 [facility] [address] [place] [address] 52127 CHEM 14 (METABOLIC PANEL) 41951 Albumin 79304-7 3.6 g/dL 2021 [facility] [address] [place] [address] 80234 CHEM 14 (METABOLIC PANEL) 27190 Total Protein 2885-2 6.8 g/dL 2021 [facility] [address] [place] [address] 28243 CHEM 14 (METABOLIC PANEL) 22276 Globulin 2336-6 3.2 g/dL 2021 [facility] [address] [place] [address] CHEM 14 (METABOLIC PANEL) 09326 Albumin/Globulin Ratio 1759-0 1.1 2021 [facility] [address] [place] [address] CHEM 14 (METABOLIC PANEL) 25158 ALK PHOS 6768-6 57.00 U/L 2021 [facility] [address] [place] [address] CHEM 14 (METABOLIC PANEL) 77628 SGOT/AST 1920-8 19 U/L 2021 [facility] [address] [place] [address] CHEM 14 (METABOLIC PANEL) 20379 SGPT/ALT 1743-4 32 U/L 2021 [facility] [address] [place] [address] CHEM 14 (METABOLIC PANEL) 53485 Total Bilirubin 1975-2 0.3 mg/dL 2021 [facility] [address] [place] [address] CHEM 14 (METABOLIC PANEL) 07791 Calcium 46213-0 9.2 mg/dL 2021 [facility] [address] [place] [address] CHEM 14 (METABOLIC PANEL) 26749 Corrected Calcium 83467-3 9.7 mg/dL 11/03 [facility] [address] [place] [address] 29739 DIRECT LDL - CHOL 08522 LDL-Direct 62925-3 181 mg/dL 0 2021 [facility] [address] [place] [address] 72126 HDL - CHOL 50356 HDL 2085-9 40 mg/dL 2021 [facility] [address] [place] [address] 29289 HDL - CHOL 15664 CHD 07681-9 16 % 2021 [facility] [address] [place] [address] 00788 [id number] IN [facility]8-4 Glyco HGB A1C 07337-2 5.6 % 2021 [facility] [address] [place] [address] 25243 [id number] IN [facility]84 eAG 13049-6 114 mg/dL 2021 [facility] [address] [place] [address] PREALBUMIN 40312 Prealbumin 48015-8 27 mg/dL 2021 [facility] [address] [place] [address] MAGNESIUM 69079 Magnesium 27785-3 2.3 mg/dL 2021 [facility] [address] [place] [address] PTH 76121 PTH 2731-8 133.5 pg/mL 2021 [facility] [address] [place] [address] TSH 71395 TSH 65322-5 1.390 uIU/mL 2021 [facility] [address] [place] [address] VITAMIN D 59652 Vitamin D 01715-5 20.4 ng/mL 2021 [facility] [address] [place] [address] CHOLESTEROL 03289 Cholesterol 2093-3 251 mg/dL 2021 [facility] [address] [place] [address] 51334 TRIGLYCERIDES 55707 Triglycerides 2571-8 193 mg/dL 2021 [facility] [address] [place] [address] 60721 TRIGLYCERIDES 48124 VLDL 49859-4 39 mg/dL 2021 [facility] [address] [place] [address] 71195 MICROALBUMIN (URINE) 03934 Microalbumin 63160-6 NO SPECIMEN RECEIVED mg/dL 2020 [facility] [address] [place] [address] 76943 MICROALBUMIN (URINE) 07161 Microalbumin/Crea tinine Ratio 51190-3 NO SPECIMEN RECEIVED MCG/MGCREAT 2020 [facility] [address] [place] [address] 54939 MICROALBUMIN (URINE) 03308 Urine Creatinine 2161-8 NO SPECIMEN RECEIVED mg/dL 2020 [facility] [address] [place] [address] 69419 PROTEIN E-PHORESIS 67275 SPE Albumin 2862-1 4.11 g/dL 2020 [facility] [address] [place] [address] 04994 PROTEIN E-PHORESIS 36462 SPE Alpha 1 2865-4 0.19 g/dL [address] [facility] [address] [place] [address] 41031 PROTEIN E-PHORESIS 47092 SPE Alpha 2 2868-8 0.76 g/dL [address] [facility] [address] [place] [address] 78083 PROTEIN E-PHORESIS 54897 SPE Beta 1 2871-2 0.52 g/dL 2020 [facility] [address] [place] [address] PROTEIN E-PHORESIS 81931 SPE Beta 2 2871-2 0.39 g/dL 2020 [facility] [address] [place] [address] PROTEIN E-PHORESIS 31956 SPE Gamma 2874-6 0.73 g/dL 2020 [facility] [address] [place] [address] PROTEIN E-PHORESIS 02413 SPE Pathology Consult 95313-9 Normal pattern.Meet Costa MD (Clinical Pathologist) 2020 [facility] [address] [place] [address] IMMUNOFIXATION (CHANTE) 64940 Serum IgM Band 44992-4 Absent 2020 [facility] [address] [place] [address] IMMUNOFIXATION (CHANTE) 55562 Serum IgG Band 17667-0 Absent 2020 [facility] [address] [place] [address] IMMUNOFIXATION (CHANTE) 76767 Serum IgA Band 34873-2 Absent 2020 [facility] [address] [place] [address] IMMUNOFIXATION (CHANTE) [address] [facility] Band 67237-6 Absent 2020 [facility] [address] [place] [address] IMMUNOFIXATION (CHANTE) 47499 Serum Lambda Band 16124-0 Absent 2020 [facility] [address] [place] [address] IMMUNOFIXATION (CHANTE) 01342 CHANTE Pathology Consult 52582-4 Negative serum Immunofixati on. Meet Costa MD (Clinical Pathologist) 2020 [facility] [address] [place] [address] Hepatitis panel 31844 Hepatitis A IgM (Acute) 39807-4 Non-reactive (Negative) 2020 [facility] [address] [place] [address] Hepatitis panel 72006 Hepatitis B Surface Antigen 5195-3 Non-Reactive (Negative) 2020 [facility] [address] [place] [address] Hepatitis panel 99132 Hepatitis B Core Antibody (IgM) 26601-3 Non-Reactive (Negative) 2020 [facility] [address] [place] [address] Hepatitis panel 67472 Hepatitis C IgG Antibody 30547-5 Non-Reactive (Negative) 2020 [facility] [address] [place] [address] IGA [id number] IGA 2458-8 158 mg/dL 2020 [facility] [address] [place] [address] IGM 22111p2 IGM 2472-9 116 mg/dL 2020 [facility] [address] [place] [address] IGG 37051k3 IGG 2465-3 904 mg/dL 2020 [facility] [address] [place] [address] CHEM 14 (METABOLIC PANEL) 68416 Glucose 2345-7 85 mg/dL 2020 [facility] [address] [place] [address] CHEM 14 (METABOLIC PANEL) 40553 BUN 3094-0 14 mg/dL 2020 [facility] [address] [place] [address] CHEM 14 (METABOLIC PANEL) 23230 Creatinine 2160-0 0.7 mg/dL [address] [facility] [address] [place] [address] 99885 CHEM 14 (METABOLIC PANEL) 00731 BUN/Creat Ratio 3097-3 19.6 [address] [facility] [address] [place] [address] 20405 CHEM 14 (METABOLIC PANEL) 29058 GFR Estimated 71921-9 93 mL/min/1.73m 2 2020 [facility] [address] [place] [address] 29796 CHEM 14 (METABOLIC PANEL) 60770 GFR Estimated for Americans 59706-3 112 mL/min/1.73m 2 [address] [facility] [address] [place] [address] 68513 CHEM 14 (METABOLIC PANEL) 04018 Sodium 2951-2 143 mmol/L 2020 [facility] [address] [place] [address] CHEM 14 (METABOLIC PANEL) 10035 Potassium 2823-3 4.0 mmol/L 2020 [facility] [address] [place] [address] CHEM 14 (METABOLIC PANEL) 90902 Chloride 2075-0 107 mmol/L 2020 [facility] [address] [place] [address] CHEM 14 (METABOLIC PANEL) 77490 Total CO2 2028-9 27 mmol/L [address] [facility] [address] [place] [address] 76240 CHEM 14 (METABOLIC PANEL) 40762 Calculated Serum Osmolality 36713-7 296 mOsm/kg 2020 [facility] [address] [place] [address] 37489 CHEM 14 (METABOLIC PANEL) 31977 Anion Gap 1863-0 13.0 mEq/L [address] [facility] [address] [place] [address] 04108 CHEM 14 (METABOLIC PANEL) 99135 Albumin 34097-0 3.4 g/dL 2020 [facility] [address] [place] [address] CHEM 14 (METABOLIC PANEL) 84549 Total Protein 2885-2 6.7 g/dL [address] [facility] [address] [place] [address] 48355 CHEM 14 (METABOLIC PANEL) 52420 Globulin 2336-6 3.3 g/dL [address] [facility] [address] [place] [address] 19360 CHEM 14 (METABOLIC PANEL) 53108 Albumin/Globulin Ratio 1759-0 1.0 [address] [facility] [address] [place] [address] 38592 CHEM 14 (METABOLIC PANEL) 97840 ALK PHOS 6768-6 228.00 U/L [address] [facility] [address] [place] [address] 96548 CHEM 14 (METABOLIC PANEL) 28015 SGOT/AST 1920-8 49 U/L [address] [facility] [address] [place] [address] 92580 CHEM 14 (METABOLIC PANEL) 08571 SGPT/ALT 1743-4 157 U/L [address] [facility] [address] [place] [address] 38126 CHEM 14 (METABOLIC PANEL) 65530 Total Bilirubin 1975-2 0.3 mg/dL 2020 [facility] [address] [place] [address] 54546 CHEM 14 (METABOLIC PANEL) 84121 Calcium 59184-4 9.1 mg/dL 2020 [facility] [address] [place] [address] 30501 CHEM 14 (METABOLIC PANEL) 09607 Corrected Calcium 98055-6 9.7 mg/dL 01/30 [facility] [address] [place] [address] 54323 VITAMIN B-12 80007 Vitamin B12 2132-9 383 pg/mL 01/30 [facility] [address] [place] [address] TSH 88813 TSH 53641-1 1.830 uIU/mL 2020 [facility] [address] [place] [address] COMPLETE CBC W/ DIFF WBC 22113 WBC 6690-2 7.5 K/ul 2020 [facility] [address] [place] [address] COMPLETE CBC W/ DIFF WBC 55776 RBC 789-8 4.08 M/uL 2020 [facility] [address] [place] [address] COMPLETE CBC W/ DIFF WBC 17381 Hemoglobin 718-7 11.4 g/dL 2020 [facility] [address] [place] [address] 76005 COMPLETE CBC W/ DIFF WBC 29643 Hematocrit 4544-3 34.6 % 2020 [facility] [address] [place] [address] 36085 COMPLETE CBC W/ DIFF WBC 33442 MCV 787-2 84.7 fL 2020 [facility] [address] [place] [address] 17861 COMPLETE CBC W/ DIFF WBC 38818 MCH 785-6 27.9 pg 2020 [facility] [address] [place] [address] 18493 COMPLETE CBC W/ DIFF WBC 34907 MCHC 786-4 33.0 g/dL 2020 [facility] [address] [place] [address] 72014 COMPLETE CBC W/ DIFF WBC 98360 RDW 788-0 14.3 % 2020 [facility] [address] [place] [address] 56201 COMPLETE CBC W/ DIFF WBC 39136 Platelet Count 777-3 322 K/uL 2020 [facility] [address] [place] [address] 60576 COMPLETE CBC W/ DIFF WBC 54427 MPV 53021-1 8.9 fL 2020 [facility] [address] [place] [address] 24879 COMPLETE CBC W/ DIFF WBC 01023 Neutrophils % 770-8 46.6 % 2020 [facility] [address] [place] [address] 90866 COMPLETE CBC W/ DIFF WBC 66737 Lymphocytes % 736-9 29.7 % 2020 [facility] [address] [place] [address] COMPLETE CBC W/ DIFF WBC 27780 Monocytes % 5905-5 6.4 % 2020 [facility] [address] [place] [address] COMPLETE CBC W/ DIFF WBC 82796 Eosinophils % 713-8 16.7 % 2020 [facility] [address] [place] [address] COMPLETE CBC W/ DIFF WBC 55948 Basophils% 706-2 0.6 % 2020 [facility] [address] [place] [address] COMPLETE CBC W/ DIFF WBC 05005 Absolute Neutrophil 751-8 3495 /ul 2020 [facility] [address] [place] [address] COMPLETE CBC W/ DIFF WBC 35501 Absolute Lymphocyte 49782-9 2228 /ul 2020 [facility] [address] [place] [address] 08704 COMPLETE CBC W/ DIFF WBC 81126 Absolute Monocyte 742-7 480 /ul 2020 [facility] [address] [place] [address] COMPLETE CBC W/ DIFF WBC 61762 Absolute Eosinophil 711-2 1253 /ul 2020 [facility] [address] [place] [address] COMPLETE CBC W/ DIFF WBC 92662 Absolute Basophil 704-7 45 /ul 2020 [facility] [address] [place] [address] PREALBUMIN 07775 Prealbumin 18654-3 22 mg/dL 2020 [facility] [address] [place] [address] FOLATE 22117 Folate 2284-8 12.0 ng/mL 2020 [facility] [address] [place] [address] 60879 [id number] IN [facility]8-4 Glyco HGB A1C 05593-6 5.3 % 2020 [facility] [address] [place] [address] [id number] IN [facility]8 eAG 18312-3 105 mg/dL 2020 [facility] [address] [place] [address] PREALBUMIN 77765 Prealbumin 48762-3 32 mg/dL 2020 [facility] [address] [place] [address] CHEM 14 (METABOLIC PANEL) 92779 Glucose 2345-7 153 mg/dL 2020 [facility] [address] [place] [address] CHEM 14 (METABOLIC PANEL) 01790 BUN 3094-0 15 mg/dL 2020 [facility] [address] [place] [address] CHEM 14 (METABOLIC PANEL) 66320 Creatinine 2160-0 0.7 mg/dL 2020 [facility] [address] [place] [address] CHEM 14 (METABOLIC PANEL) 12677 BUN/Creat Ratio 3097-3 21.4 2020 [facility] [address] [place] [address] CHEM 14 (METABOLIC PANEL) 40936 GFR Estimated 84911-4 95 mL/min/1.73m 2 2020 [facility] [address] [place] [address] CHEM 14 (METABOLIC PANEL) 83586 Sodium 2951-2 139 mmol/L 2020 [facility] [address] [place] [address] 14463 CHEM 14 (METABOLIC PANEL) 75686 GFR Estimated for Americans 43382-8 115 mL/min/1.73m 2 2020 [facility] [address] [place] [address] 47687 CHEM 14 (METABOLIC PANEL) 98875 Potassium 2823-3 3.7 mmol/L [address] [facility] [address] [place] [address] 93366 CHEM 14 (METABOLIC PANEL) 83390 Chloride 2075-0 102 mmol/L [address] [facility] [address] [place] [address] 73967 CHEM 14 (METABOLIC PANEL) 46848 Total CO2 2028-9 29 mmol/L [address] [facility] [address] [place] [address] 63356 CHEM 14 (METABOLIC PANEL) 61468 Anion Gap 1863-0 11.7 mEq/L 2020 [facility] [address] [place] [address] CHEM 14 (METABOLIC PANEL) 46309 Calculated Serum Osmolality 69285-3 292 mOsm/kg 2020 [facility] [address] [place] [address] 96083 CHEM 14 (METABOLIC PANEL) 45522 Albumin 33761-7 3.7 g/dL [address] [facility] [address] [place] [address] 68230 CHEM 14 (METABOLIC PANEL) 48861 Total Protein 2885-2 6.9 g/dL 2020 [facility] [address] [place] [address] CHEM 14 (METABOLIC PANEL) 30476 Globulin 2336-6 3.2 g/dL 2020 [facility] [address] [place] [address] CHEM 14 (METABOLIC PANEL) 84915 Albumin/Globulin Ratio 1759-0 1.2 2020 [facility] [address] [place] [address] CHEM 14 (METABOLIC PANEL) 00086 ALK PHOS 6768-6 66.00 U/L 2020 [facility] [address] [place] [address] CHEM 14 (METABOLIC PANEL) 84107 SGOT/AST 1920-8 21 U/L 2020 [facility] [address] [place] [address] CHEM 14 (METABOLIC PANEL) 64633 SGPT/ALT 1743-4 34 U/L 2020 [facility] [address] [place] [address] CHEM 14 (METABOLIC PANEL) 82766 Total Bilirubin 1975-2 0.3 mg/dL 2020 [facility] [address] [place] [address] CHEM 14 (METABOLIC PANEL) 34867 Calcium 71433-9 9.0 mg/dL 2020 [facility] [address] [place] [address] CHEM 14 (METABOLIC PANEL) 15401 Corrected Calcium 07558-7 9.4 mg/dL 11/03 [facility] [address] [place] [address] MAGNESIUM 28885 Magnesium 20668-3 1.6 mg/dL 2020 [facility] [address] [place] [address] [id number] [place] 4548-4 Glyco HGB A1C 63021-2 5.6 % 2020 [facility] [address] [place] [address] [id number] IN 4548-4 eAG 49807-5 114 mg/dL 2020 [facility] [address] [place] [address] No Orders No Orders No Orders 0 2020 [facility] [address] [place] [address] Reflex Molecular UTI Test RMUTI Molecular UTI Test SEE ATTACHMENT APPROVAL MESSAGE 2019 [facility] [address] [place] [address] PTH 72363 PTH 2731-8 62.8 pg/mL 2019 [facility] [address] [place] [address] [id number] IN [facility]8-4 Glyco HGB A1C 77306-1 SEE COMMENT % 2019 [facility] [address] [place] [address] [id number] IN [facility]8 eAG 62838-6 SEE COMMENT mg/dL 2019 [facility] [address] [place] [address] CHEM 14 (METABOLIC PANEL) 29465 Glucose 2345-7 100 mg/dL 2019 [facility] [address] [place] [address] CHEM 14 (METABOLIC PANEL) 83087 BUN 3094-0 12 mg/dL 2019 [facility] [address] [place] [address] CHEM 14 (METABOLIC PANEL) 55145 Creatinine 2160-0 0.8 mg/dL 2019 [facility] [address] [place] [address] CHEM 14 (METABOLIC PANEL) 86713 BUN/Creat Ratio 3097-3 14.9 2019 [facility] [address] [place] [address] CHEM 14 (METABOLIC PANEL) 71772 GFR Estimated 88432-5 81 mL/min/1.73m 2 2019 [facility] [address] [place] [address] 17029 CHEM 14 (METABOLIC PANEL) 91161 Sodium 2951-2 140 mmol/L 2019 [facility] [address] [place] [address] CHEM 14 (METABOLIC PANEL) 83776 GFR Estimated for Americans 32795-2 98 mL/min/1.73m 2 2019 [facility] [address] [place] [address] CHEM 14 (METABOLIC PANEL) 49565 Potassium 2823-3 4.2 mmol/L 2019 [facility] [address] [place] [address] CHEM 14 (METABOLIC PANEL) 62773 Chloride 2075-0 103 mmol/L 2019 [facility] [address] [place] [address] CHEM 14 (METABOLIC PANEL) 05658 Total CO2 2028-9 24 mmol/L 2019 [facility] [address] [place] [address] CHEM 14 (METABOLIC PANEL) 63174 Calculated Serum Osmolality 80810-4 290 mOsm/kg 2019 [facility] [address] [place] [address] CHEM 14 (METABOLIC PANEL) 41465 Anion Gap 1863-0 17.2 mEq/L 2019 [facility] [address] [place] [address] CHEM 14 (METABOLIC PANEL) 21846 Albumin 50764-8 4.0 g/dL 2019 [facility] [address] [place] [address] CHEM 14 (METABOLIC PANEL) 46575 Total Protein 2885-2 7.7 g/dL 2019 [facility] [address] [place] [address] CHEM 14 (METABOLIC PANEL) 92904 Globulin 2336-6 3.7 g/dL 2019 [facility] [address] [place] [address] CHEM 14 (METABOLIC PANEL) 24686 Albumin/Globulin Ratio 1759-0 1.1 2019 [facility] [address] [place] [address] CHEM 14 (METABOLIC PANEL) 46374 ALK PHOS 6768-6 75.00 U/L 2019 [facility] [address] [place] [address] CHEM 14 (METABOLIC PANEL) 83536 SGOT/AST 1920-8 24 U/L 2019 [facility] [address] [place] [address] CHEM 14 (METABOLIC PANEL) 86520 SGPT/ALT 1743-4 36 U/L 2019 [facility] [address] [place] [address] CHEM 14 (METABOLIC PANEL) 52451 Total Bilirubin 1975-2 0.5 mg/dL 2019 [facility] [address] [place] [address] CHEM 14 (METABOLIC PANEL) 91804 Calcium 46963-7 9.4 mg/dL 2019 [facility] [address] [place] [address] CHEM 14 (METABOLIC PANEL) 11031 Corrected Calcium 92111-0 9.6 mg/dL 09/27 [facility] [address] [place] [address] Reflex UA to Molecular UTI Test 58797H Glucose 2345-7 SEE COMMENT mg/dL 2019 [facility] [address] [place] [address] Reflex UA to Molecular UTI Test 28691Z Protein SEE COMMENT mg/dL 2019 [facility] [address] [place] [address] Reflex UA to Molecular UTI Test 52583J Bilirubin SEE COMMENT mg/dL 2019 [facility] [address] [place] [address] Reflex UA to Molecular UTI Test 13233O Urobilinogen SEE COMMENT mg/dL 2019 [facility] [address] [place] [address] Reflex UA to Molecular UTI Test 76007I Ph SEE COMMENT 2019 [facility] [address] [place] [address] Reflex UA to Molecular UTI Test 00033V Blood SEE COMMENT mg/dL 2019 [facility] [address] [place] [address] Reflex UA to Molecular UTI Test 66832F Ketones SEE COMMENT mg/dL 2019 [facility] [address] [place] [address] Reflex UA to Molecular UTI Test 87169U Nitrite SEE COMMENT 2019 [facility] [address] [place] [address] Reflex UA to Molecular UTI Test 13048O Leukocytes SEE COMMENT WBCs/uL 2019 [facility] [address] [place] [address] Reflex UA to Molecular UTI Test 41641N Clarity SEE COMMENT 2019 [facility] [address] [place] [address] Reflex UA to Molecular UTI Test 85199W Specific [place] SEE COMMENT 2019 [facility] [address] [place] [address] Reflex UA to Molecular UTI Test 93589S Color SEE COMMENT 2019 [facility] [address] [place] [address] Reflex UA to Molecular UTI Test 05897S Ascorbic Acid SEE COMMENT mg/dL 2019 [facility] [address] [place] [address] MICROALBUMIN (URINE) 98490 Microalbumin 36881-1 2.7 mg/dL 2019 [facility] [address] [address] MICROALBUMIN (URINE) 93644 Microalbumin/Crea tinine Ratio 67076-1 11 MCG/MGCREAT 2019 [facility] [address] [address] MICROALBUMIN (URINE) 15231 Urine Creatinine 2161-8 235.00 mg/dL 2019 [facility] [address] [address] VITAMIN B-12 80037 Vitamin B12 2132-9 299 pg/mL 06/13 [facility] [address] [place] [address] DIRECT LDL - CHOL 70226 LDL-Direct 82850-2 103 mg/dL 0 2019 [facility] [address] [place] [address] PREALBUMIN 37347 Prealbumin 51719-0 30 mg/dL 2019 [facility] [address] [place] [address] TSH 03119 TSH 72405-4 0.731 uIU/mL 2019 [facility] [address] [place] [address] TRIGLYCERIDES 38826 Triglycerides 2571-8 174 mg/dL 2019 [facility] [address] [place] [address] TRIGLYCERIDES 00922 VLDL 35046-4 35 mg/dL 2019 [facility] [address] [place] [address] SLIDE SLIDE_SCAN Platelet Estimate 9317-9 Normal 0 2019 [facility] [address] [place] [address] SLIDE SLIDE_SCAN Poikilocytosis 779-9 2+ 06/03 [facility] [address] [place] [address] SLIDE SLIDE_SCAN Echinocytes 7790-9 1+ 2019 [facility] [address] [place] [address] SLIDE SLIDE_SCAN Elliptocytes 11293-8 1+ 2019 [facility] [address] [place] [address] [id number] IN [facility] Glyco HGB A1C 74137-6 5.5 % 2019 [facility] [address] [place] [address] [id number] IN [facility]8 eAG 92243-6 111 mg/dL 2019 [facility] [address] [place] [address] COMPLETE CBC W/ DIFF WBC 29949 WBC 6690-2 12.5 K/ul 2019 [facility] [address] [place] [address] COMPLETE CBC W/ DIFF WBC 85847 RBC 789-8 4.34 M/uL 2019 [facility] [address] [place] [address] COMPLETE CBC W/ DIFF WBC 52388 Hemoglobin 718-7 12.0 g/dL 2019 [facility] [address] [place] [address] COMPLETE CBC W/ DIFF WBC 41460 Hematocrit 4544-3 38.8 % 2019 [facility] [address] [place] [address] COMPLETE CBC W/ DIFF WBC 15993 MCV 787-2 89.5 fL 2019 [facility] [address] [place] [address] COMPLETE CBC W/ DIFF WBC 00004 MCH 785-6 27.8 pg 2019 [facility] [address] [place] [address] COMPLETE CBC W/ DIFF WBC 77579 MCHC 786-4 31.0 g/dL 2019 [facility] [address] [place] [address] COMPLETE CBC W/ DIFF WBC 78392 RDW 788-0 16.0 % 2019 [facility] [address] [place] [address] COMPLETE CBC W/ DIFF WBC 85740 Platelet Count 777-3 360 K/uL 2019 [facility] [address] [place] [address] COMPLETE CBC W/ DIFF WBC 02555 MPV 69965-0 10.0 fL 2019 [facility] [address] [place] [address] COMPLETE CBC W/ DIFF WBC 26506 Neutrophils % 770-8 84.6 % 2019 [facility] [address] [place] [address] COMPLETE CBC W/ DIFF WBC 35314 Lymphocytes % 736-9 11.4 % 2019 [facility] [address] [place] [address] COMPLETE CBC W/ DIFF WBC 75079 Monocytes % 5905-5 3.3 % 2019 [facility] [address] [place] [address] COMPLETE CBC W/ DIFF WBC 51296 Eosinophils % 713-8 0.6 % 2019 [facility] [address] [place] [address] COMPLETE CBC W/ DIFF WBC 45570 Basophils% 706-2 0.1 % 2019 [facility] [address] [place] [address] COMPLETE CBC W/ DIFF WBC 58460 Absolute Neutrophil 751-8 08004 /ul 2019 [facility] [address] [place] [address] COMPLETE CBC W/ DIFF WBC 45979 Absolute Lymphocyte 03261-2 1425 /ul 2019 [facility] [address] [place] [address] COMPLETE CBC W/ DIFF WBC 25373 Absolute Monocyte 742-7 413 /ul 2019 [facility] [address] [place] [address] COMPLETE CBC W/ DIFF WBC 81971 Absolute Eosinophil 711-2 75 /ul 2019 [facility] [address] [place] [address] COMPLETE CBC W/ DIFF WBC 59316 Absolute Basophil 704-7 13 /ul 2019 [facility] [address] [place] [address] CHOLESTEROL 53400 Cholesterol 2093-3 162 mg/dL 2019 [facility] [address] [place] [address] CHEM 14 (METABOLIC PANEL) 82980 Glucose 2345-7 94 mg/dL 2019 [facility] [address] [place] [address] CHEM 14 (METABOLIC PANEL) 38093 BUN 3094-0 21 mg/dL 2019 [facility] [address] [place] [address] CHEM 14 (METABOLIC PANEL) 04074 Creatinine 2160-0 0.8 mg/dL 2019 [facility] [address] [place] [address] 64544 CHEM 14 (METABOLIC PANEL) 59446 BUN/Creat Ratio 3097-3 26.1 2019 [facility] [address] [place] [address] 77640 CHEM 14 (METABOLIC PANEL) 36356 GFR Estimated 37152-6 81 mL/min/1.73m 2 2019 [facility] [address] [place] [address] 44787 CHEM 14 (METABOLIC PANEL) 36364 Sodium 2951-2 141 mmol/L 2019 [facility] [address] [place] [address] 17133 CHEM 14 (METABOLIC PANEL) 25752 GFR Estimated for Americans 97081-6 98 mL/min/1.73m 2 2019 [facility] [address] [place] [address] CHEM 14 (METABOLIC PANEL) 29925 Potassium 2823-3 4.4 mmol/L 2019 [facility] [address] [place] [address] CHEM 14 (METABOLIC PANEL) 50912 Chloride 2075-0 108 mmol/L 2019 [facility] [address] [place] [address] CHEM 14 (METABOLIC PANEL) 84344 Total CO2 2028-9 25 mmol/L 2019 [facility] [address] [place] [address] 13967 CHEM 14 (METABOLIC PANEL) 96802 Calculated Serum Osmolality 30363-0 295 mOsm/kg 2019 [facility] [address] [place] [address] CHEM 14 (METABOLIC PANEL) 54975 Anion Gap 1863-0 12.4 mEq/L 2019 [facility] [address] [place] [address] CHEM 14 (METABOLIC PANEL) 56460 Albumin 33891-1 3.8 g/dL 2019 [facility] [address] [place] [address] CHEM 14 (METABOLIC PANEL) 40477 Total Protein 2885-2 7.1 g/dL 2019 [facility] [address] [place] [address] CHEM 14 (METABOLIC PANEL) 92239 Globulin 2336-6 3.3 g/dL 2019 [facility] [address] [place] [address] CHEM 14 (METABOLIC PANEL) 15420 Albumin/Globulin Ratio 1759-0 1.2 2019 [facility] [address] [place] [address] CHEM 14 (METABOLIC PANEL) 74322 ALK PHOS 6768-6 77.00 U/L 2019 [facility] [address] [place] [address] CHEM 14 (METABOLIC PANEL) 41382 SGOT/AST 1920-8 9 U/L 2019 [facility] [address] [place] [address]84 CHEM 14 (METABOLIC PANEL) 67583 SGPT/ALT 1743-4 22 U/L 2019 [facility] [address] [place] [address] CHEM 14 (METABOLIC PANEL) 39332 Total Bilirubin 1975-2 0.3 mg/dL 2019 [facility] [address] [place] [address] CHEM 14 (METABOLIC PANEL) 42819 Calcium 34256-3 9.2 mg/dL 2019 [facility] [address] [place] [address] CHEM 14 (METABOLIC PANEL) 27170 Corrected Calcium 98024-1 9.5 mg/dL 06/13 [facility] [address] [place] [address] 81864 VITAMIN D 89250 Vitamin D 28988-1 37.1 ng/mL 2019 [facility] [address] [place] [address] HDL - CHOL 79106 HDL 2085-9 37 mg/dL 2019 [facility] [address] [place] [address] HDL - CHOL 08215 CHD 31950-6 23 % 2019 [facility] [address] [place] [address] No Orders No Orders No Orders 0 2019 [facility] [address] [place] [address] [id number] IN [facility]84 Glyco HGB A1C 87267-2 5.6 % 2019 [facility] [address] [place] [address] [id number] IN [facility] eAG 81896-9 114 mg/dL 2019 [facility] [address] [place] [address] CHEM 14 (METABOLIC PANEL) 05414 Glucose 2345-7 99 mg/dL 2019 [facility] [address] [place] [address] CHEM 14 (METABOLIC PANEL) 52200 BUN 3094-0 16 mg/dL 2019 [facility] [address] [place] [address] CHEM 14 (METABOLIC PANEL) 11751 Creatinine 2160-0 0.6 mg/dL 2019 [facility] [address] [place] [address] CHEM 14 (METABOLIC PANEL) 87808 BUN/Creat Ratio 3097-3 25.8 2019 [facility] [address] [place] [address] CHEM 14 (METABOLIC PANEL) 61898 GFR Estimated 49160-5 110 mL/min/1.73m 2 2019 [facility] [address] [place] [address] CHEM 14 (METABOLIC PANEL) 61991 GFR Estimated for Americans 38046-1 133 mL/min/1.73m 2 2019 [facility] [address] [place] [address] CHEM 14 (METABOLIC PANEL) 30754 Sodium 2951-2 138 mmol/L 2019 [facility] [address] [place] [address] CHEM 14 (METABOLIC PANEL) 90963 Potassium 2823-3 3.8 mmol/L 2019 [facility] [address] [place] [address] CHEM 14 (METABOLIC PANEL) 44890 Chloride 2075-0 103 mmol/L 2019 [facility] [address] [place] [address] 90607 CHEM 14 (METABOLIC PANEL) 29675 Total CO2 2028-9 26 mmol/L 2019 [facility] [address] [place] [address] 25928 CHEM 14 (METABOLIC PANEL) 41305 Anion Gap 1863-0 12.8 mEq/L 2019 [facility] [address] [place] [address] 60541 CHEM 14 (METABOLIC PANEL) 27542 Calculated Serum Osmolality 00120-6 287 mOsm/kg 2019 [facility] [address] [place] [address] 53747 CHEM 14 (METABOLIC PANEL) 19228 Albumin 57460-3 3.9 g/dL 2019 [facility] [address] [place] [address] 19538 CHEM 14 (METABOLIC PANEL) 42928 Total Protein 2885-2 7.3 g/dL 2019 [facility] [address] [place] [address] 40066 CHEM 14 (METABOLIC PANEL) 46099 Globulin 2336-6 3.4 g/dL 2019 [facility] [address] [place] [address] 45611 CHEM 14 (METABOLIC PANEL) 99843 Albumin/Globulin Ratio 1759-0 1.1 2019 [facility] [address] [place] [address] 76856 CHEM 14 (METABOLIC PANEL) 61118 ALK PHOS 6768-6 74.00 U/L 2019 [facility] [address] [place] [address] 34085 CHEM 14 (METABOLIC PANEL) 94103 SGOT/AST 1920-8 15 U/L 2019 [facility] [address] [place] [address] 83666 CHEM 14 (METABOLIC PANEL) 64831 SGPT/ALT 1743-4 21 U/L 2019 [facility] [address] [place] [address] 09345 CHEM 14 (METABOLIC PANEL) 11769 Total Bilirubin 1975-2 0.4 mg/dL 2019 [facility] [address] [place] [address] 33827 CHEM 14 (METABOLIC PANEL) 34229 Calcium 97961-4 8.9 mg/dL 2019 [facility] [address] [place] [address] 686[address] CHEM 14 (METABOLIC PANEL) 63078 Corrected Calcium 54848-6 9.1 mg/dL 04/14 [facility] [address] [place] [address] PHOSPHORUS 02884 Phosphorus 2777-1 2.9 mg/dL 2019 [facility] [address] [place] [address] COMPLETE CBC W/ DIFF WBC 25288 WBC 6690-2 10.4 K/ul 2019 [facility] [address] [place] [address] COMPLETE CBC W/ DIFF WBC 39655 RBC 789-8 4.34 M/uL 2019 [facility] [address] [place] [address] COMPLETE CBC W/ DIFF WBC 30518 Hemoglobin 718-7 12.2 g/dL 2019 [facility] [address] [place] [address] COMPLETE CBC W/ DIFF WBC 52034 Hematocrit 4544-3 36.0 % 2019 [facility] [address] [place] [address] COMPLETE CBC W/ DIFF WBC 02805 MCV 787-2 83.0 fL 2019 [facility] [address] [place] [address] COMPLETE CBC W/ DIFF WBC 42882 MCH 785-6 28.2 pg 2019 [facility] [address] [place] [address] COMPLETE CBC W/ DIFF WBC 34575 MCHC 786-4 34.0 g/dL 2019 [facility] [address] [place] [address] COMPLETE CBC W/ DIFF WBC 53517 RDW 788-0 15.4 % 2019 [facility] [address] [place] [address] COMPLETE CBC W/ DIFF WBC 92933 Platelet Count 777-3 329 K/uL 2019 [facility] [address] [place] [address] COMPLETE CBC W/ DIFF WBC 58503 MPV 86992-4 8.9 fL 2019 [facility] [address] [place] [address] COMPLETE CBC W/ DIFF WBC 05849 Neutrophils % 770-8 69.6 % 2019 [facility] [address] [place] [address] COMPLETE CBC W/ DIFF WBC 57790 Lymphocytes % 736-9 23.7 % 2019 [facility] [address] [place] [address] COMPLETE CBC W/ DIFF WBC 68152 Monocytes % 5905-5 6.0 % 2019 [facility] [address] [place] [address] COMPLETE CBC W/ DIFF WBC 80230 Eosinophils % 713-8 0.2 % 2019 [facility] [address] [place] [address] COMPLETE CBC W/ DIFF WBC 26194 Basophils% 706-2 0.5 % 2019 [facility] [address] [place] [address] COMPLETE CBC W/ DIFF WBC 48029 Absolute Neutrophil 751-8 7238 /ul 2019 [facility] [address] [place] [address] COMPLETE CBC W/ DIFF WBC 56081 Absolute Lymphocyte 38773-8 2465 /ul 2019 [facility] [address] [place] [address] COMPLETE CBC W/ DIFF WBC 54071 Absolute Monocyte 742-7 624 /ul 2019 [facility] [address] [place] [address] COMPLETE CBC W/ DIFF WBC 45071 Absolute Eosinophil 711-2 21 /ul 2019 [facility] [address] [place] [address] COMPLETE CBC W/ DIFF WBC 88178 Absolute Basophil 704-7 52 /ul 2019 [facility] [address] [place] [address] MAGNESIUM 21165 Magnesium 97768-9 2.3 mg/dL 2019 [facility] [address] [place] [address] URIC ACID 84253 Uric Acid 3084-1 6.1 mg/dL 2019 [facility] [address] [place] [address] COMPLETE CBC W/ DIFF WBC 40875 WBC 6690-2 10.0 K/ul 2019 [facility] [address] [place] [address] COMPLETE CBC W/ DIFF WBC 63455 RBC 789-8 4.41 M/uL 2019 [facility] [address] [place] [address] COMPLETE CBC W/ DIFF WBC 65171 Hemoglobin 718-7 12.1 g/dL 2019 [facility] [address] [place] [address] COMPLETE CBC W/ DIFF WBC 30073 Hematocrit 4544-3 36.6 % 2019 [facility] [address] [place] [address] COMPLETE CBC W/ DIFF WBC 36206 MCV 787-2 83.1 fL 2019 [facility] [address] [place] [address] COMPLETE CBC W/ DIFF WBC 92362 MCH 785-6 27.5 pg 2019 [facility] [address] [place] [address] COMPLETE CBC W/ DIFF WBC 77866 MCHC 786-4 33.1 g/dL 2019 [facility] [address] [place] [address] COMPLETE CBC W/ DIFF WBC 38159 RDW 788-0 14.6 % 2019 [facility] [address] [place] [address] COMPLETE CBC W/ DIFF WBC 43974 Platelet Count 777-3 356 K/uL 2019 [facility] [address] [place] [address] COMPLETE CBC W/ DIFF WBC 83004 MPV 75587-9 8.8 fL 2019 [facility] [address] [place] [address] COMPLETE CBC W/ DIFF WBC 32436 Neutrophils % 770-8 71.7 % 2019 [facility] [address] [place] [address] COMPLETE CBC W/ DIFF WBC 24155 Lymphocytes % 736-9 22.0 % 2019 [facility] [address] [place] [address] COMPLETE CBC W/ DIFF WBC 01126 Monocytes % 5905-5 4.9 % 2019 [facility] [address] [place] [address] COMPLETE CBC W/ DIFF WBC 11627 Eosinophils % 713-8 0.7 % 2019 [facility] [address] [place] [address] COMPLETE CBC W/ DIFF WBC 10164 Basophils% 706-2 0.7 % 2019 [facility] [address] [place] [address] COMPLETE CBC W/ DIFF WBC 22719 Absolute Neutrophil 751-8 7170 /ul 2019 [facility] [address] [place] [address] COMPLETE CBC W/ DIFF WBC 54614 Absolute Lymphocyte 92079-7 2200 /ul 2019 [facility] [address] [place] [address] COMPLETE CBC W/ DIFF WBC 50700 Absolute Monocyte 742-7 490 /ul 2019 [facility] [address] [place] [address] COMPLETE CBC W/ DIFF WBC 17003 Absolute Eosinophil 711-2 70 /ul 2019 [facility] [address] [place] [address] COMPLETE CBC W/ DIFF WBC 22182 Absolute Basophil 704-7 70 /ul 2019 [facility] [address] [place] [address] [id number] [place] 4548-4 Glyco HGB A1C 78970-2 6.0 % 2019 [facility] [address] [place] [address] [id number] [place] 4548-4 eAG 23260-8 126 mg/dL 2019 [facility] [address] [place] [address] CHEM 14 (METABOLIC PANEL) 08156 Glucose 2345-7 117 mg/dL 2019 [facility] [address] [place] [address] CHEM 14 (METABOLIC PANEL) 52294 BUN 3094-0 9 mg/dL 2019 [facility] [address] [place] [address] CHEM 14 (METABOLIC PANEL) 13078 Creatinine 2160-0 0.7 mg/dL 2019 [facility] [address] [place] [address] CHEM 14 (METABOLIC PANEL) 09140 BUN/Creat Ratio 3097-3 12.2 2019 [facility] [address] [place] [address] CHEM 14 (METABOLIC PANEL) 09884 GFR Estimated 31228-2 90 mL/min/1.73m 2 2019 [facility] [address] [place] [address] CHEM 14 (METABOLIC PANEL) 84096 GFR Estimated for Americans 56422-1 109 mL/min/1.73m 2 2019 [facility] [address] [place] [address] CHEM 14 (METABOLIC PANEL) 42649 Sodium 2951-2 140 mmol/L 2019 [facility] [address] [place] [address] CHEM 14 (METABOLIC PANEL) 11604 Potassium 2823-3 4.2 mmol/L 2019 [facility] [address] [place] [address] CHEM 14 (METABOLIC PANEL) 96580 Chloride 2075-0 107 mmol/L 2019 [facility] [address] [place] [address] CHEM 14 (METABOLIC PANEL) 72349 Total CO2 2028-9 28 mmol/L 2019 [facility] [address] [place] [address] CHEM 14 (METABOLIC PANEL) 27506 Calculated Serum Osmolality 94032-6 290 mOsm/kg 2019 [facility] [address] [place] [address] CHEM 14 (METABOLIC PANEL) 30617 Anion Gap 1863-0 9.2 mEq/L 2019 [facility] [address] [place] [address] CHEM 14 (METABOLIC PANEL) 66046 Albumin 92020-0 3.4 g/dL 2019 [facility] [address] [place] [address] CHEM 14 (METABOLIC PANEL) 78761 Total Protein 2885-2 7.0 g/dL 2019 [facility] [address] [place] [address] CHEM 14 (METABOLIC PANEL) 28663 Globulin 2336-6 3.6 g/dL 2019 [facility] [address] [place] [address] CHEM 14 (METABOLIC PANEL) 74986 Albumin/Globulin Ratio 1759-0 0.9 2019 [facility] [address] [place] [address] 16734 CHEM 14 (METABOLIC PANEL) 33263 ALK PHOS 6768-6 90.00 U/L 2019 [facility] [address] [place] [address] CHEM 14 (METABOLIC PANEL) 39827 SGOT/AST 1920-8 15 U/L 2019 [facility] [address] [place] [address] CHEM 14 (METABOLIC PANEL) 47099 SGPT/ALT 1743-4 34 U/L 2019 [facility] [address] [place] [address] 24017 CHEM 14 (METABOLIC PANEL) 25998 Total Bilirubin 1975-2 0.6 mg/dL 2019 [facility] [address] [place] [address] CHEM 14 (METABOLIC PANEL) 34723 Calcium 38503-2 9.2 mg/dL 2019 [facility] [address] [place] [address] CHEM 14 (METABOLIC PANEL) 49166 Corrected Calcium 31771-3 9.8 mg/dL 10/18 [facility] [address] [place] [address] TSH 01761 TSH 89404-9 1.380 uIU/mL 2019 [facility] [address] [place] [address] PREALBUMIN 50333 Prealbumin 57781-5 23 mg/dL 2019 [facility] [address] [place] [address] COMPLETE CBC W/ DIFF WBC 25623 WBC 6690-2 8.0 K/ul 2018 [facility] [address] [place] [address] COMPLETE CBC W/ DIFF WBC 84158 RBC 789-8 4.24 M/uL 2018 [facility] [address] [place] [address] COMPLETE CBC W/ DIFF WBC 25832 Hemoglobin 718-7 11.8 g/dL 2018 [facility] [address] [place] [address] COMPLETE CBC W/ DIFF WBC 20519 Hematocrit 4544-3 35.8 % 2018 [facility] [address] [place] [address] COMPLETE CBC W/ DIFF WBC 30969 MCV 787-2 84.4 fL 2018 [facility] [address] [place] [address] 97105 COMPLETE CBC W/ DIFF WBC 79811 MCH 785-6 27.9 pg 2018 [facility] [address] [place] [address] 06408 COMPLETE CBC W/ DIFF WBC 12248 MCHC 786-4 33.0 g/dL 2018 [facility] [address] [place] [address] 44497 COMPLETE CBC W/ DIFF WBC 88206 RDW 788-0 15.5 % 2018 [facility] [address] [place] [address] 93502 COMPLETE CBC W/ DIFF WBC 93561 Platelet Count 777-3 353 K/uL 2018 [facility] [address] [place] [address] 05855 COMPLETE CBC W/ DIFF WBC 96983 MPV 92734-5 8.9 fL 2018 [facility] [address] [place] [address] 27351 COMPLETE CBC W/ DIFF WBC 54289 Neutrophils % 770-8 62.5 % 2018 [facility] [address] [place] [address] 19516 COMPLETE CBC W/ DIFF WBC 94361 Lymphocytes % 736-9 31.4 % 2018 [facility] [address] [place] [address] 87487 COMPLETE CBC W/ DIFF WBC 70229 Monocytes % 5905-5 5.1 % 2018 [facility] [address] [place] [address] COMPLETE CBC W/ DIFF WBC 91660 Eosinophils % 713-8 0.5 % 2018 [facility] [address] [place] [address] COMPLETE CBC W/ DIFF WBC 89729 Basophils% 706-2 0.5 % 2018 [facility] [address] [place] [address] COMPLETE CBC W/ DIFF WBC 64607 Absolute Neutrophil 751-8 5000 /ul 2018 [facility] [address] [place] [address] COMPLETE CBC W/ DIFF WBC 31201 Absolute Lymphocyte 97984-2 2512 /ul 2018 [facility] [address] [place] [address] COMPLETE CBC W/ DIFF WBC 74869 Absolute Monocyte 742-7 408 /ul 2018 [facility] [address] [place] [address] COMPLETE CBC W/ DIFF WBC 54652 Absolute Eosinophil 711-2 40 /ul 2018 [facility] [address] [place] [address] 20797 COMPLETE CBC W/ DIFF WBC 32796 Absolute Basophil 704-7 40 /ul 2018 [facility] [address] [place] [address] 53927 MAGNESIUM 73259 Magnesium 14237-8 2.3 mg/dL 2018 [facility] [address] [place] [address] 94610 URIC ACID 01103 Uric Acid 3084-1 6.0 mg/dL 2018 [facility] [address] [place] [address] 13915 PTH 25541 PTH 2731-8 75.9 pg/mL 2018 [facility] [address] [place] [address] 75803 CHEM 14 (METABOLIC PANEL) 84931 Glucose 2345-7 93 mg/dL 2018 [facility] [address] [place] [address] 09187 CHEM 14 (METABOLIC PANEL) 01706 BUN 3094-0 17 mg/dL 2018 [facility] [address] [place] [address] 87574 CHEM 14 (METABOLIC PANEL) 63312 Creatinine 2160-0 0.7 mg/dL 2018 [facility] [address] [place] [address] 42931 CHEM 14 (METABOLIC PANEL) 32288 BUN/Creat Ratio 3097-3 23.5 2018 [facility] [address] [place] [address] 82640 CHEM 14 (METABOLIC PANEL) 71127 GFR Estimated 53314-6 93 mL/min/1.73m 2 2018 [facility] [address] [place] [address] CHEM 14 (METABOLIC PANEL) 23520 GFR Estimated for Americans 94268-0 112 mL/min/1.73m 2 2018 [facility] [address] [place] [address] CHEM 14 (METABOLIC PANEL) 30243 Sodium 2951-2 140 mmol/L 2018 [facility] [address] [place] [address] CHEM 14 (METABOLIC PANEL) 99002 Potassium 2823-3 3.8 mmol/L 2018 [facility] [address] [place] [address] CHEM 14 (METABOLIC PANEL) 14196 Chloride 2075-0 105 mmol/L 2018 [facility] [address] [place] [address] CHEM 14 (METABOLIC PANEL) 38769 Total CO2 2028-9 22 mmol/L 2018 [facility] [address] [place] [address] CHEM 14 (METABOLIC PANEL) 78247 Anion Gap 1863-0 16.8 mEq/L 2018 [facility] [address] [place] [address] CHEM 14 (METABOLIC PANEL) 10723 Calculated Serum Osmolality 43504-1 291 mOsm/kg 2018 [facility] [address] [place] [address] CHEM 14 (METABOLIC PANEL) 14662 Albumin 20610-7 4.0 g/dL 2018 [facility] [address] [place] [address] CHEM 14 (METABOLIC PANEL) 98164 Total Protein 2885-2 7.5 g/dL 2018 [facility] [address] [place] [address] 78114 CHEM 14 (METABOLIC PANEL) 89051 Globulin 2336-6 3.5 g/dL 2018 [facility] [address] [place] [address] CHEM 14 (METABOLIC PANEL) 48472 Albumin/Globulin Ratio 1759-0 1.1 2018 [facility] [address] [place] [address] CHEM 14 (METABOLIC PANEL) 93825 ALK PHOS 6768-6 68.00 U/L 2018 [facility] [address] [place] [address] CHEM 14 (METABOLIC PANEL) 60385 SGOT/AST 1920-8 12 U/L 2018 [facility] [address] [place] [address] CHEM 14 (METABOLIC PANEL) 45593 SGPT/ALT 1743-4 29 U/L 2018 [facility] [address] [place] [address] CHEM 14 (METABOLIC PANEL) 73661 Total Bilirubin 1975-2 0.3 mg/dL 2018 [facility] [address] [place] [address] CHEM 14 (METABOLIC PANEL) 54285 Calcium 91114-6 9.5 mg/dL 2018 [facility] [address] [place] [address] CHEM 14 (METABOLIC PANEL) 83841 Corrected Calcium 17902-1 9.7 mg/dL 07/05 [facility] [address] [place] [address] PHOSPHORUS 05955 Phosphorus 2777-1 3.5 mg/dL 2018 [facility] [address] [place] [address] D9H-VZSMQKEFSHPSS IN 4548-4 Glyco HGB A1C 90072-1 5.6 % 2018 [facility] [address] [place] [address] [id number]-[id number] IN 4548-4 eAG 74990-6 114 mg/dL 2018 [facility] [address] [place] [address] FREE T-3 06169 FT3 3051-0 1.82 pg/mL 2018 [facility] [address] [place] [address] FREE T-4 32445 FT4 3024-7 1.17 ng/dL 2018 [facility] [address] [place] [address] TRIGLYCERIDES 44126 Triglycerides 2571-8 171 mg/dL 2018 [facility] [address] [place] [address] TRIGLYCERIDES 71594 VLDL 69156-1 34 mg/dL 2018 [facility] [address] [place] [address] HDL - CHOL 07757 HDL 2085-9 37 mg/dL 2018 [facility] [address] [place] [address] HDL - CHOL 03711 CHD 46553-0 19 % 2018 [facility] [address] [place] [address] Homocysteine 31905 Homocysteine 34076-5 8.42 umol/L 2018 [facility] [address] [place] [address] TSH 16114 TSH 24624-5 2.210 uIU/mL 2018 [facility] [address] [place] [address] CHOLESTEROL 36581 Cholesterol 2093-3 200 mg/dL 2018 [facility] [address] [place] [address] MICROALBUMIN (URINE) 84540 Microalbumin 08422-2 0.5 mg/dL 2018 [facility] [address] [place] [address] MICROALBUMIN (URINE) 44163 Microalbumin/Crea tinine Ratio 02203-8 7 MCG/MGCREAT 2018 [facility] [address] [place] [address] MICROALBUMIN (URINE) 50932 Urine Creatinine 2161-8 71.30 mg/dL 2018 [facility] [address] [place] [address] VITAMIN B-12 39021 Vitamin B12 2132-9 445 pg/mL 06/22 [facility] [address] [place] [address] 11747 Direct LDL 79164 LDL-Direct 06574-8 130 mg/dL 2018 [facility] [address] [place] [address] Reflex Molecular UTI Test RMUTI Molecular UTI Test CRITERIA NOT MET FOR MOLECULAR UTI TESTING 2018 [facility] [address] [place] [address] 14823 Reflex UA to Molecular UTI Test 77138E Glucose 2345-7 Negative mg/dL 2018 [facility] [address] [place] [address] 31954 Reflex UA to Molecular UTI Test 07498L Protein Negative mg/dL 2018 [facility] [address] [place] [address] 61907 Reflex UA to Molecular UTI Test 20343S Bilirubin Negative mg/dL 2018 [facility] [address] [place] [address] 96217 Reflex UA to Molecular UTI Test 17319H Urobilinogen Negative mg/dL 2018 [facility] [address] [place] [address] 99331 Reflex UA to Molecular UTI Test 89583K Ph 6.00 2018 [facility] [address] [place] [address] Reflex UA to Molecular UTI Test 89965Z Blood Negative mg/dL 2018 [facility] [address] [place] [address] 87196 Reflex UA to Molecular UTI Test 90733R Ketones Negative mg/dL 2018 [facility] [address] [place] [address] Reflex UA to Molecular UTI Test 03089X Nitrite Negative 2018 [facility] [address] [place] [address] Reflex UA to Molecular UTI Test 89243B Leukocytes 500 WBCs/uL +++ WBCs/uL 2018 [facility] [address] [place] [address] Reflex UA to Molecular UTI Test 56550Y Clarity Slightly-Marianne udy 2018 [facility] [address] [place] [address] Reflex UA to Molecular UTI Test 42612D Specific [place] 1.013 2018 [facility] [address] [place] [address] Reflex UA to Molecular UTI Test 45641I Color Yellow 2018 [facility] [address] [place] [address] Reflex UA to Molecular UTI Test 93581D Ascorbic Acid Negative mg/dL 2018 [facility] [address] [place] [address] Reflex UA to Molecular UTI Test 65574G Red Blood Cell 1 /HPF #/HPF 2018 [facility] [address] [place] [address] 38782 Reflex UA to Molecular UTI Test 54877L White Blood Cell 4 /HPF #/HPF 2018 [facility] [address] [place] [address] Reflex UA to Molecular UTI Test 65790X SQUAMOUS EPITHELIAL 1 /HPF #/HPF 2018 [facility] [address] [place] [address] 45773 Reflex UA to Molecular UTI Test 79980C Bacteria Trace graded/HPF 2018 [facility] [address] [place] [address] Reflex UA to Molecular UTI Test 50591Q Mucous RARE grades/LPF 2018 [facility] [address] [place] [address] PREALBUMIN 43518 Prealbumin 67300-0 28 mg/dL 2018 [facility] [address] [place] [address] NT PROBNP 04132 NT-proBNP 22374-3 121.0 pg/mL 2018 [facility] [address] [place] [address] CHEM 14 (METABOLIC PANEL) 28243 Glucose 2345-7 91 mg/dL 2018 [facility] [address] [place] [address] CHEM 14 (METABOLIC PANEL) 89126 BUN 3094-0 20 mg/dL 2018 [facility] [address] [place] [address] CHEM 14 (METABOLIC PANEL) 53137 Creatinine 2160-0 0.8 mg/dL 2018 [facility] [address] [place] [address] CHEM 14 (METABOLIC PANEL) 52653 BUN/Creat Ratio 3097-3 25.6 2018 [facility] [address] [place] [address] CHEM 14 (METABOLIC PANEL) 14599 GFR Estimated 28801-8 85 mL/min/1.73m 2 2018 [facility] [address] [place] [address] CHEM 14 (METABOLIC PANEL) 83642 Sodium 2951-2 141 mmol/L 2018 [facility] [address] [place] [address] CHEM 14 (METABOLIC PANEL) 69997 GFR Estimated for Americans 46754-5 102 mL/min/1.73m 2 2018 [facility] [address] [place] [address] CHEM 14 (METABOLIC PANEL) 34125 Potassium 2823-3 4.9 mmol/L 2018 [facility] [address] [place] [address] CHEM 14 (METABOLIC PANEL) 94184 Chloride 2075-0 109 mmol/L 2018 [facility] [address] [place] [address] CHEM 14 (METABOLIC PANEL) 35678 Total CO2 2028-9 26 mmol/L 2018 [facility] [address] [place] [address] CHEM 14 (METABOLIC PANEL) 11772 Anion Gap 1863-0 10.9 mEq/L 2018 [facility] [address] [place] [address] CHEM 14 (METABOLIC PANEL) 18723 Calculated Serum Osmolality 23427-5 294 mOsm/kg 2018 [facility] [address] [place] [address] CHEM 14 (METABOLIC PANEL) 06075 Albumin 53626-8 3.6 g/dL 2018 [facility] [address] [place] [address] CHEM 14 (METABOLIC PANEL) 35888 Total Protein 2885-2 7.1 g/dL 2018 [facility] [address] [place] [address] CHEM 14 (METABOLIC PANEL) 35822 Globulin 2336-6 3.5 g/dL 2018 [facility] [address] [place] [address] CHEM 14 (METABOLIC PANEL) 03597 Albumin/Globulin Ratio 1759-0 1.0 2018 [facility] [address] [place] [address] CHEM 14 (METABOLIC PANEL) 07330 ALK PHOS 6768-6 71.00 U/L 2018 [facility] [address] [place] [address] CHEM 14 (METABOLIC PANEL) 23959 SGOT/AST 1920-8 19 U/L 2018 [facility] [address] [place] [address] CHEM 14 (METABOLIC PANEL) 21116 SGPT/ALT 1743-4 28 U/L 2018 [facility] [address] [place] [address] CHEM 14 (METABOLIC PANEL) 76715 Total Bilirubin 1975-2 0.4 mg/dL 2018 [facility] [address] [place] [address] CHEM 14 (METABOLIC PANEL) 70057 Calcium 50819-3 8.9 mg/dL 2018 [facility] [address] [place] [address] CHEM 14 (METABOLIC PANEL) 18679 Corrected Calcium 87953-4 9.4 mg/dL 12/29 [facility] [address] [place] [address] FREE T-4 75354 FT4 3024-7 1.19 ng/dL 2018 [facility] [address] [place] [address] URIC ACID 24749 Uric Acid 3084-1 5.4 mg/dL 2018 [facility] [address] [place] [address] [id number]-HQMNCJJIOZUTV IN 4548-4 Glyco HGB A1C 79260-9 5.8 % 2018 [facility] [address] [place] [address] V7Q-MNIHEEETIOGKZ [place] 4548-4 eAG 63527-1 120 mg/dL 2018 [facility] [address] [place] [address] PHOSPHORUS 98371 Phosphorus 2777-1 3.3 mg/dL 2017 [facility] [address] [place] [address] MAGNESIUM 75199 Magnesium 45236-8 2.2 mg/dL 2017 [facility] [address] [place] [address] CHEM 14 (METABOLIC PANEL) 03278 Glucose 2345-7 94 mg/dL 2017 [facility] [address] [place] [address] CHEM 14 (METABOLIC PANEL) 05734 BUN 3094-0 8 mg/dL 2017 [facility] [address] [place] [address] CHEM 14 (METABOLIC PANEL) 08916 Creatinine 2160-0 0.7 mg/dL 2017 [facility] [address] [place] [address] CHEM 14 (METABOLIC PANEL) 73878 BUN/Creat Ratio 3097-3 12.2 2017 [facility] [address] [place] [address] CHEM 14 (METABOLIC PANEL) 20183 GFR Estimated 23674-6 104 mL/min/1.73m 2 2017 [facility] [address] [place] [address] CHEM 14 (METABOLIC PANEL) 36073 GFR Estimated for Americans 58102-7 125 mL/min/1.73m 2 2017 [facility] [address] [place] [address] CHEM 14 (METABOLIC PANEL) 99782 Sodium 2951-2 140 mmol/L 2017 [facility] [address] [place] [address] CHEM 14 (METABOLIC PANEL) 84932 Potassium 2823-3 4.0 mmol/L 2017 [facility] [address] [place] [address] CHEM 14 (METABOLIC PANEL) 07206 Chloride 2075-0 103 mmol/L 2017 [facility] [address] [place] [address] CHEM 14 (METABOLIC PANEL) 58652 Total CO2 2028-9 29 mmol/L 2017 [facility] [address] [place] [address] CHEM 14 (METABOLIC PANEL) 45266 Calculated Serum Osmolality 74007-5 288 mOsm/kg 2017 [facility] [address] [place] [address] CHEM 14 (METABOLIC PANEL) 49253 Anion Gap 1863-0 12.0 mEq/L 2017 [facility] [address] [place] [address] CHEM 14 (METABOLIC PANEL) 80687 Albumin 16696-2 3.7 g/dL 2017 [facility] [address] [place] [address] CHEM 14 (METABOLIC PANEL) 12671 Total Protein 2885-2 7.0 g/dL 2017 [facility] [address] [place] [address] CHEM 14 (METABOLIC PANEL) 59413 Globulin 2336-6 3.3 g/dL 2017 [facility] [address] [place] [address] CHEM 14 (METABOLIC PANEL) 18041 Albumin/Globulin Ratio 1759-0 1.1 2017 [facility] [address] [place] [address] CHEM 14 (METABOLIC PANEL) 78296 ALK PHOS 6768-6 84.00 U/L 2017 [facility] [address] [place] [address] CHEM 14 (METABOLIC PANEL) 43819 SGOT/AST 1920-8 23 U/L 2017 [facility] [address] [place] [address] CHEM 14 (METABOLIC PANEL) 29765 SGPT/ALT 1743-4 69 U/L 2017 [facility] [address] [place] [address] CHEM 14 (METABOLIC PANEL) 10127 Total Bilirubin 1975-2 0.5 mg/dL 2017 [facility] [address] [place] [address] CHEM 14 (METABOLIC PANEL) 95363 Calcium 72665-0 9.3 mg/dL 2017 [facility] [address] [place] [address] CHEM 14 (METABOLIC PANEL) 30051 Corrected Calcium 28397-6 9.7 mg/dL 09/08 [facility] [address] [place] [address] H9G-PTLXYFXXEEEMY IN 4548-4 Glyco HGB A1C 01404-8 5.7 % 2017 [facility] [address] [place] [address] Q7T-UPUQEBBBTLLVS IN 4548-4 eAG 25768-8 117 mg/dL 2017 [facility] [address] [place] [address] VITAMIN D 46990 Vitamin D 17300-4 43.8 ng/mL 2017 [facility] [address] [place] [address] COMPLETE CBC W/ DIFF WBC 79968 WBC 6690-2 8.0 K/ul 2017 [facility] [address] [place] [address] COMPLETE CBC W/ DIFF WBC 67164 RBC 789-8 4.31 M/uL 2017 [facility] [address] [place] [address] COMPLETE CBC W/ DIFF WBC 14554 Hemoglobin 718-7 12.0 g/dL 2017 [facility] [address] [place] [address] COMPLETE CBC W/ DIFF WBC 40002 Hematocrit 4544-3 37.8 % 2017 [facility] [address] [place] [address] COMPLETE CBC W/ DIFF WBC 43761 MCV 787-2 87.7 fL 2017 [facility] [address] [place] [address] COMPLETE CBC W/ DIFF WBC 41435 MCH 785-6 27.9 pg 2017 [facility] [address] [place] [address] COMPLETE CBC W/ DIFF WBC 27507 MCHC 786-4 31.8 g/dL 2017 [facility] [address] [place] [address] COMPLETE CBC W/ DIFF WBC 48777 RDW 788-0 14.6 % 2017 [facility] [address] [place] [address] COMPLETE CBC W/ DIFF WBC 23054 Platelet Count 777-3 346 K/uL 2017 [facility] [address] [place] [address] COMPLETE CBC W/ DIFF WBC 32451 MPV 48194-0 9.2 fL 2017 [facility] [address] [place] [address] COMPLETE CBC W/ DIFF WBC 94510 Neutrophils % 770-8 71.7 % 2017 [facility] [address] [place] [address] COMPLETE CBC W/ DIFF WBC 75318 Lymphocytes % 736-9 23.0 % 2017 [facility] [address] [place] [address] COMPLETE CBC W/ DIFF WBC 26048 Monocytes % 5905-5 4.0 % 2017 [facility] [address] [place] [address] COMPLETE CBC W/ DIFF WBC 48616 Eosinophils % 713-8 1.2 % 2017 [facility] [address] [place] [address] COMPLETE CBC W/ DIFF WBC 43399 Basophils% 706-2 0.1 % 2017 [facility] [address] [place] [address] COMPLETE CBC W/ DIFF WBC 99519 Absolute Neutrophil 751-8 5736 /ul 2017 [facility] [address] [place] [address] COMPLETE CBC W/ DIFF WBC 47776 Absolute Lymphocyte 09774-2 1840 /ul 2017 [facility] [address] [place] [address] COMPLETE CBC W/ DIFF WBC 89548 Absolute Monocyte 742-7 320 /ul 2017 [facility] [address] [place] [address] COMPLETE CBC W/ DIFF WBC 54945 Absolute Eosinophil 711-2 96 /ul 2017 [facility] [address] [place] [address] COMPLETE CBC W/ DIFF WBC 69631 Absolute Basophil 704-7 8 /ul 2017 [facility] [address] [place] [address] PREALBUMIN 63953 Prealbumin 49718-1 22 mg/dL 2017 [facility] [address] [place] [address] NT PROBNP 49308 NT-proBNP 62529-1 <50 pg/mL 2017 [facility] [address] [place] [address] MICROALBUMIN (URINE) 28072 Microalbumin 41916-2 2.2 mg/dL 2017 [facility] [address] [place] [address] MICROALBUMIN (URINE) 56287 Microalbumin/Crea tinine Ratio 90945-7 9 MCG/MGCREAT 2017 [facility] [address] [place] [address] MICROALBUMIN (URINE) 18974 Urine Creatinine 2161-8 235.00 mg/dL 2017 [facility] [address] [place] [address] Manual Diff MDIFF Neutrophils 76858-1 70.0 % 2017 [facility] [address] [place] [address] Manual Diff MDIFF Lymphocytes 34931-6 22.0 % 2017 [facility] [address] [place] [address] Manual Diff MDIFF Monocytes 83875-4 5.0 % 2017 [facility] [address] [place] [address] Manual Diff MDIFF Eosinophils 04723-9 2.0 % 2017 [facility] [address] [place] [address] Manual Diff MDIFF Basophils 69777-9 1.0 % 2017 [facility] [address] [place] [address] Manual Diff MDIFF Absolute Neut 74562-8 7560 /ul 05/05 [facility] [address] [place] [address] Manual Diff MDIFF Absolute Lymph 49705-4 2376 /ul 2017 [facility] [address] [place] [address] Manual Diff MDIFF Absolute [place] 71449-6 540 /ul 05/05 [facility] [address] [place] [address] Manual Diff MDIFF Platelet Estimate 9317-9 Normal 2017 [facility] [address] [place] [address] Manual Diff MDIFF Absolute Eos 58209-9 216 /ul 06/02 [facility] [address] [place] [address] Manual Diff MDIFF Echinocytes 7790-9 2+ 2017 [facility] [address] [place] [address] Manual Diff MDIFF Poikilocytosis 779-9 2+ 2017 [facility] [address] [place] [address] Manual Diff MDIFF Absolute Baso 77804-2 108 /ul 05/05 [facility] [address] [place] [address] CHEM 14 (METABOLIC PANEL) 50594 Glucose 2345-7 89 mg/dL 2017 [facility] [address] [place] [address] CHEM 14 (METABOLIC PANEL) 23202 BUN 3094-0 18 mg/dL 2017 [facility] [address] [place] [address] CHEM 14 (METABOLIC PANEL) 19970 Creatinine 2160-0 0.7 mg/dL 2017 [facility] [address] [place] [address] CHEM 14 (METABOLIC PANEL) 88926 BUN/Creat Ratio 3097-3 24.6 2017 [facility] [address] [place] [address] CHEM 14 (METABOLIC PANEL) 85781 GFR Estimated 99805-2 92 ML/MIN 2017 [facility] [address] [place] [address] CHEM 14 (METABOLIC PANEL) 43611 GFR Estimated for Americans 46048-1 111 ML/MIN 2017 [facility] [address] [place] [address] CHEM 14 (METABOLIC PANEL) 31508 Sodium 2951-2 141 mmol/L 2017 [facility] [address] [place] [address] CHEM 14 (METABOLIC PANEL) 53736 Potassium 2823-3 4.0 mmol/L 2017 [facility] [address] [place] [address] CHEM 14 (METABOLIC PANEL) 16577 Chloride 2075-0 106 mmol/L 2017 [facility] [address] [place] [address] CHEM 14 (METABOLIC PANEL) 36752 Total CO2 2028-9 26 mmol/L 2017 [facility] [address] [place] [address] CHEM 14 (METABOLIC PANEL) 00250 Anion Gap 1863-0 13.0 mEq/L 2017 [facility] [address] [place] [address] CHEM 14 (METABOLIC PANEL) 42832 Calculated Serum Osmolality 61096-3 293 mOsm/kg 2017 [facility] [address] [place] [address] CHEM 14 (METABOLIC PANEL) 50584 Albumin 61753-2 4.2 g/dL 2017 [facility] [address] [place] [address] CHEM 14 (METABOLIC PANEL) 51635 Total Protein 2885-2 7.6 g/dL 2017 [facility] [address] [place] [address] CHEM 14 (METABOLIC PANEL) 89371 Globulin 2336-6 3.4 g/dL 2017 [facility] [address] [place] [address] CHEM 14 (METABOLIC PANEL) 06411 Albumin/Globulin Ratio 1759-0 1.2 2017 [facility] [address] [place] [address] CHEM 14 (METABOLIC PANEL) 91813 ALK PHOS 6768-6 104.00 U/L 2017 [facility] [address] [place] [address] CHEM 14 (METABOLIC PANEL) 89074 SGOT/AST 1920-8 44 U/L 2017 [facility] [address] [place] [address] CHEM 14 (METABOLIC PANEL) 18950 SGPT/ALT 1743-4 81 U/L 2017 [facility] [address] [place] [address] CHEM 14 (METABOLIC PANEL) 93363 Total Bilirubin 1975-2 0.7 mg/dL 2017 [facility] [address] [place] [address] CHEM 14 (METABOLIC PANEL) 94686 Calcium 97230-2 9.5 mg/dL 2017 [facility] [address] [place] [address] CHEM 14 (METABOLIC PANEL) 28050 Corrected Calcium 28549-6 9.5 mg/dL 06/02 [facility] [address] [place] [address] VITAMIN B-12 68404 Vitamin B12 2132-9 1156 pg/mL 05/05 [facility] [address] [place] [address] PHOSPHORUS 54544 Phosphorus 2777-1 3.4 mg/dL 2017 [facility] [address] [place] [address] TSH 96604 TSH 83809-1 2.150 uIU/mL 2017 [facility] [address] [place] [address] MAGNESIUM 60647 Magnesium 97008-6 2.0 mg/dL 2017 [facility] [address] [place] [address] P9Z-UOHZUQEOABASB [place] 4548-4 Glyco HGB A1C 89402-4 6.0 % 2017 [facility] [address] [place] [address] K0T-PEMSHIHQFPGKB IN 4548-4 eAG 11032-6 126 mg/dL 2017 [facility] [address] [place] [address] HDL - CHOL 18550 HDL 2085-9 36 mg/dL 2017 [facility] [address] [place] [address] HDL - CHOL 01776 CHD 03128-4 22 % 2017 [facility] [address] [place] [address] COMPLETE CBC W/ DIFF WBC 65716 WBC 6690-2 10.8 K/ul 2017 [facility] [address] [place] [address] COMPLETE CBC W/ DIFF WBC 40543 RBC 789-8 4.24 M/uL 2017 [facility] [address] [place] [address] COMPLETE CBC W/ DIFF WBC 60468 Hemoglobin 718-7 11.8 g/dL 2017 [facility] [address] [place] [address] COMPLETE CBC W/ DIFF WBC 46042 Hematocrit 4544-3 37.2 % 2017 [facility] [address] [place] [address] COMPLETE CBC W/ DIFF WBC 16811 MCV 787-2 87.8 fL 2017 [facility] [address] [place] [address] COMPLETE CBC W/ DIFF WBC 71420 MCH 785-6 27.9 pg 2017 [facility] [address] [place] [address] COMPLETE CBC W/ DIFF WBC 92667 MCHC 786-4 31.8 g/dL 2017 [facility] [address] [place] [address] COMPLETE CBC W/ DIFF WBC 01366 RDW 788-0 15.1 % 2017 [facility] [address] [place] [address] COMPLETE CBC W/ DIFF WBC 29658 Platelet Count 777-3 344 K/uL 2017 [facility] [address] [place] [address] COMPLETE CBC W/ DIFF WBC 25738 MPV 85681-3 9.6 fL 2017 [facility] [address] [place] [address] TRIGLYCERIDES 66372 Triglycerides 2571-8 144 mg/dL 2017 [facility] [address] [place] [address] TRIGLYCERIDES 84740 VLDL 26973-0 29 mg/dL 2017 [facility] [address] [place] [address] Direct LDL 77812 LDL-Direct 42127-3 112 mg/dL 2017 [facility] [address] [place] [address] CHOLESTEROL 32105 Cholesterol 2093-3 161 mg/dL 2017 [facility] [address] [place] [address] FOLATE 39803 Folate 2284-8 >20 ng/mL 2017 [facility] [address] [place] [address] Procedures Procedure Codes Date Patient Health Questionnaire [...] VAC NO PRSV 0.5 ML IM CPT-4: 60709 08/05/2023 Admin flu virus vaccine CPT-4: G0008 08/05/20 23 Patient Health Questionnaire CPT-4: DPHQ Electrocardiogram CPT-4: 50844 06/24/2023 Electrocardiogram Finding/Abnormal: _Sinus Rhythm Low voltage in precordial leads. - Nonspecific T-abnormality. CPT-4: 31055Bgsqtti 023 Patient Health Questionnaire Little interest or [...] CPT-4: DFAUnknown 06/24/2023 Urinalysis, dip stick CPT-4: 71607 05/04/2023 Glucose Blood Test CPT-4: 40279 05/04/2023 Urinalysis, dip stick Leukocytes:/Moderate, Nitrite:/Negative, Urobilinogen:/0.2, Protein:/Negative, Ph:/5.0, Blood:/Negative, Specific [place]:/1.005, Ketone:/Negative, Bilirubin:/Negative, Glucose:/Negative CPT-4: 86061Bjpaupg 05/04/2023 Outlook Fany Assessment CPT-4: DSWA 01/02 Fall Risk Assessment CPT-4: DFRA 01/27/2023 Hypertension CPT-4: HTN 01/27/2023 Outlook Fany Assessment CPT-4: DSWAUnknown 01/27/2023 Fall Risk [...] CPT-4: PASUnknown 023 Glucose Blood Test CPT-4: 57761 2022 Hypertension CPT-4: HTN 08/17/2022 Admin pneumococ vac CPT-4: G0009 08/17/2022 PNEUMOCOCCAL VACC 23 JUNO IM CPT-4: 30570 08/03 Hypertension Hypertension Follow Up Plan/Lifestyle modification weight reduction, Hypertension Follow Up Plan/Lifestyle modification including reduce salt intake CPT-4: HTNUnknown 08/17/2022 Patient General Health Asses semnt Compared to one year ago, how would you rate your health in general?/the same CPT-4: PGHAUnknown 08/11/2022 Glucose Blood Test CPT-4: 85079 06/23/2022 Outlook Fany Assessment CPT-4: DSWA 04/02 Patient Health [...] depression- NO PLAN NEEDED CPT-4: DPHQUnknown 04/19/2022 Outlook Fany Assessment CPT-4: DSWAUnknown 04/19/2022 Annual Wellness [...] with pt and/or caregiver. Copy given. CPT-4: F0750Yyndqsf 02/11/2022 Patient General Health Asses semnt Compared [...] CPT-4: VACP Fall Risk Assessment SNOMED CT: 86952380 4 CPT-4: DFRA 01/13/2021 Annual Wellness Visit [...] with injury in the past year?/No CPT-4: E8938Fzbrkit 01/13/2021 Advance Care Planning Time spent discussing [...] PRN, no current action needed SNOMED CT: 288994389 CPT-4: DFRAUnknown 01/13/2021 Functional Assessment ADLs - [...] Negative for depression (Plan NOT REQUIRED) CPT-4: BGTP6Oavrnjn 01/13/2021 Outlook Fany Assessment CPT-4: DSWA 12/01 Outlook Fany Assessment CPT-4: DSWAUnknown 12/17/2020 Glucose Blood Test CPT-4: 35175 10/29/2020 Urinalysis, dip stick CPT-4: 29932 09/24/2020 Glucose Blood Test CPT-4: 04398 09/24/2020 Urinalysis, dip stick Leukocytes:/Small, Nitrite:/Negative, Urobilinogen:/0.2, Protein:/Negative, Ph:/5.0, Blood:/Non-Hemolyzed:, Blood:/Trace, Specific [place]:/1.020, Ketone:/Negative, Bilirubin:/Negative, Glucose:/Negative CPT-4: 79164Djrofdu 09/24/2020 Patient Health Questionnaire CPT-4: DPHQ Patient [...] CPT-4: MTAUnknown 07/08/2020 Glucose Blood Test CPT-4: 67176 06/11/2020 FLUCELVAX PFS VAC NO PRSV 0.5 ML IM CPT-4: 30534 06/11/2020 Admin flu virus vaccine CPT-4: G0008 06/11/20 20 Electrocardiogram CPT-4: 32964 05/14/2020 Electrocardiogram Finding/Normal CPT-4: 85274Rqyehiu 05/14/2020 Breast Cancer Screening Screening for Breast Cancer/Screened:/No/Mammogram not clinically indicated due to < 50 years of age CPT-4: BCSUnknown 04/02 Colorectal Screening Screening for Colorectal Cancer/Screened:/No/CRC screening not clinically indicated due to < 50 years of age CPT-4: CRSUnknown 04/17/2020 Tobacco Assessment/Screening CPT-4: TCA Fall Risk Assessment SNOMED CT: 45461443 4 CPT-4: DFRA 01/01/2020 Functional Assessment CPT-4: DFA 01/01/2020 Tobacco Assessment/Screening Tobacco Use/Never used tobacco CPT-4: TCAUnknown 01/01/2020 Fall Risk Assessment Two or more falls in the past year?/No, Has there been a fall with injury in the last year?/No, Plan:/Monitor gait and balance PRN, no current action needed SNOMED CT: 801083861 CPT-4: DFRAUnknown 01/01/2020 Functional Assessment ADLs - [...] perform the following safely:/transportation CPT-4: DFAUnknown 01/01/2020 Outlook Fany Assessment CPT-4: DSWA 11/04 Patient Health [...] Plan:/*Active diagnosis of depression CPT-4: DPHQUnknown 11/28/2019 Outlook Fany Assessment CPT-4: DSWAUnknown 11/28/2019 Outlook Fany Assessment CPT-4: DSWA 10/03 Hypertension CPT-4: HTN 10/17/2019 Hypertension Hypertension Follow Up Plan/Lifestyle modification weight reduction, Hypertension Follow Up Plan/Repeat BP measurement within one month, Hypertension Follow Up Plan/Lifestyle modification including reduce salt intake CPT-4: HTNUnknown 10/17/2019 Outlook Fany Assessment CPT-4: DSWA 10/03 Glucose Blood Test CPT-4: 00423 10/17/2019 Fall Risk Assessment [facility] CT: 25366307 4 CPT-4: DFRA 09/19/2019 Functional Assessment CPT-4: [...] PRN, no current action needed SNOMED CT: 293757548 CPT-4: DFRAUnknown 09/19/2019 Urinalysis, dip stick CPT-4: 40865 06/21/2019 Urinalysis, dip stick Leukocytes:/Moderate, Nitrite:/Negative, Urobilinogen:/Normal, Protein:/Negative, Ph:/5.0, Blood:/Negative, Specific [place]:/1.015, Ketone:/Negative, Bilirubin:/Negative, Glucose:/Negative CPT-4: 75118Fyxgxnq 06/21/2019 Tobacco Assessment/Screening CPT-4: TCA Patient Health Questionnaire CPT-4: DPHQ PNEUMOCOCCAL VACC 13 JUNO IM CPT-4: 04433 05/04 Patient Health Questionnaire Little interest or [...] 04/03 TD VACCINE >7 y/o IM CPT-4: 74115 04/25/2019 AHA/REBECCA Classification Asse ssment Assign to:/[place]ida - Lab Template, Assign to:, AHA/A: At risk, but without structural heart disease., NYHA/I: Asymptomatic CPT-4: DAHAUnknown 04/25/2019 Immunization Administration CPT-4: 49619 04/03 Controlled Substance Report Assign to:, Controlled Substance Report Range:/Past 24 months, Provider Attestation:/I attest that I reviewed the state PDMP report and find no clinical issues., Formatting Model/CDA Sections/CCDA CPT-4: CTRSUUnknown 04/25/2019 Urinalysis, dip stick CPT-4: 92970 03/28/2019 Urinalysis, dip stick CPT-4: 74681 03/28/2019 Urinalysis, dip stick Leukocytes:/Moderate, Nitrite:/Negative, Urobilinogen:/Normal, Protein:/Negative, Ph:/5.0, Blood:/Negative, Specific [place]:/1.030, Ketone:/5 points, Bilirubin:/Small, Glucose:/10/12 CPT-4: 85442Kqcvmpe 03/28/2019 Glucose Blood Test CPT-4: 17310 01/31/2019 Electrocardiogram Finding/Sinus Bradycardia CPT-4: 87533Etcrqir 12/27/2018 Glucose Blood Test CPT-4: 74690 08/09/2018 Outlook Fany Assessment Sensation/04/11 CPT-4: DSWAUnknown 07/12/2018 Functional [...] the last year?/Yes (High Risk) OMED CT: 336999269 CPT-4: DFRAUnknown 07/12/2018 Glucose Blood Test CPT-4: 99107 06/14/2018 Urinalysis, dip stick Leukocytes:/Moderate, Nitrite:/Negative, Urobilinogen:/Normal, Protein:/Trace, Ph:/6.0, Blood:/Negative, Specific [place]:/1.010, Ketone:/Negative, Bilirubin:/Small, Glucose:/Negative CPT-4: 54625Zsfytbe 05/31/2018 Electrocardiogram Finding/Abnormal: _ CPT-4: 90333Alowrzw 05/31/2018 I4E-Ytulmvhbdeyarcb CPT-4: 30870 Unknown C0T-Scfkierorcwpynk CPT-4: 76305 Unknown F3V-Ngmxxdidgkpvjpy CPT-4: 39752 Unknown W7G-Pklfosgthilprhh CPT-4: 15538 Unknown Z5A-Jzcmlsmzutlbmrm CPT-4: 17893 Unknown E9S-Nzpttwtvttwvhhl CPT-4: 01229 Unknown P5H-Irgtrdqbcdpabzn CPT-4: 92572 Unknown V0J-Wxwpjzoiqkvknml CPT-4: 99606 Unknown H4F-Pkdzusunztsenoq CPT-4: 46699 Unknown T5D-Ghcyjxefwbjtxci CPT-4: 06865 Unknown A5F-Faxsgoccimhnbsa CPT-4: 73347 Unknown D5E-Wdeiznkhorkgnea CPT-4: 67913 Unknown Gynecology Referral SNOMED CT: 901420382 CPT-4: R14 Unknown D2Y-Xobkupkppzuoxlm CPT-4: 00346 Unknown Vital Signs Date Vital 11/09/2023 Blood Pressure 1: 110/84 Code: 8480-6 BMI: 53.3 Code: 21106-7 Heart Rate 1: 71 bpm Height: 4'11 Code: 8302-2 Respiratory Rate: 16 bpm SpO2: 99% Temperature: 36.3 (C) / 97.3 (F) Weight: 263 lbs 12 oz Code: 47535-3 09/20/2023 Blood Pressure 1: 102/78 Code: 8480-6 BMI: 51.4 Code: 73587-8 Heart Rate 1: 77 bpm Height: 4'11 Code: 8302-2 Respiratory Rate: 16 bpm SpO2: 98% Temperature: 36.3 (C) / 97.3 (F) Weight: 254 lbs 8 oz Code: 76845-7 08/05/2023 Blood Pressure 1: 118/84 Code: 8480-6 BMI: 51.3 Code: 16916-6 Heart Rate 1: 70 bpm Height: 4'11 Code: 8302-2 Respiratory Rate: 16 bpm SpO2: 98% Temperature: 36.4 (C) / 97.5 (F) Weight: 254 lbs Code: 79542-2 06/24/2023 Blood Pressure 1: 122/76 Code: 8480-6 BMI: 51.1 Code: 67059-1 Heart Rate 1: 67 bpm Height: 4'11 Code: 8302-2 Respiratory Rate: 16 bpm SpO2: 98% Temperature: 36.7 (C) / 98.1 (F) Weight: 253 lbs Code: 93463-9 05/04/2023 Blood Pressure 1: 114/76 Code: 8480-6 BMI: 78.8 Code: 78225-3 Heart Rate 1: 70 bpm Height: 4' Code: 8302-2 Random Blood Sugar: 108/NaN Respiratory Rate: 16 bpm SpO2: 98% Temperature: 36.7 (C) / 98.1 (F) Weight: 258 lbs 4 oz Code: 49248-2 01/27/2023 Blood Pressure 1: 100/60 Code: 8480-6 BMI: 81.3 Code: 69608-9 Heart Rate 1: 79 bpm Height: 4' Code: 8302-2 Respiratory Rate: 20 bpm SpO2: 97% Temperature: 36.5 (C) / 97.7 (F) Weight: 266 lbs 8 oz Code: 02590-7 11/23/2022 Blood Pressure 1: 100/68 Code: 8480-6 BMI: 54.7 Code: 50652-5 Heart Rate 1: 80 bpm Height: 4'11 Code: 8302-2 Respiratory Rate: 16 bpm SpO2: 98% Temperature: 36.3 (C) / 97.3 (F) Weight: 270 lbs 12 oz Code: 75741-2 2022 Blood Pressure 1: 104/78 Code: 8480-6 BMI: 54.4 Code: 34477-5 Heart Rate 1: 90 bpm Height: 4'11 Code: 8302-2 Random Blood Sugar: 117/NaN Respiratory Rate: 18 bpm SpO2: 98% Temperature: 36.3 (C) / 97.3 (F) Weight: 269 lbs 9 oz Code: 33922-0 08/17/2022 Blood Pressure 1: 126/82 Code: 8480-6 BMI: 53.9 Code: 37390-3 Heart Rate 1: 81 bpm Height: 4'11 Code: 8302-2 Respiratory Rate: 16 bpm SpO2: 99% Temperature: 36.3 (C) / 97.3 (F) Weight: 266 lbs 12 oz Code: 71505-0 06/23/2022 Blood Pressure 1: 130/78 Code: 8480-6 BMI: 55.2 Code: 05227-5 Heart Rate 1: 75 bpm Height: 4'11 Code: 8302-2 Random Blood Sugar: 114/NaN Respiratory Rate: 18 bpm SpO2: 98% Temperature: 36.3 (C) / 97.3 (F) Weight: 273 lbs 3 oz Code: 87416-6 04/19/2022 Blood Pressure 1: 102/82 Code: 8480-6 BMI: 55.1 Code: 50930-2 Heart Rate 1: 85 bpm Height: 4'11 Code: 8302-2 Respiratory Rate: 18 bpm SpO2: 97% Temperature: 36.5 (C) / 97.7 (F) Weight: 272 lbs 12 oz Code: 95912-6 02/11/2022 Blood Pressure 1: 116/82 Code: 8480-6 BMI: 55.1 Code: 54482-6 Heart Rate 1: 90 bpm Height: 4'11 Code: 8302-2 Respiratory Rate: 18 bpm SpO2: 98% Temperature: 36.1 (C) / 97.0 (F) Weight: 272 lbs 12 oz Code: 32513-8 12/03/2021 Blood Pressure 1: 118/76 Code: 8480-6 BMI: 54.1 Code: 75144-5 Heart Rate 1: 82 bpm Height: 4'11 Code: 8302-2 Respiratory Rate: 16 bpm SpO2: 98% Temperature: 36.4 (C) / 97.5 (F) Weight: 268 lbs Code: 71303-7 11/02/2021 Blood Pressure 1: 108/86 Code: 8480-6 BMI: 55.2 Code: 38940-1 Heart Rate 1: 81 bpm Height: 4'11 Code: 8302-2 Respiratory Rate: 16 bpm SpO2: 98% Temperature: 36.3 (C) / 97.3 (F) Weight: 273 lbs 6 oz Code: 96233-3 10/07/2021 Blood Pressure 1: 122/78 Code: 8480-6 BMI: 53.7 Code: 16108-6 Heart Rate 1: 80 bpm Height: 4 Code: 8302-2 Respiratory Rate: 18 bpm SpO2: 98% Temperature: 36.6 (C) / 97.8 (F) Weight: 266 lbs Code: 51660-0 04/01/2021 Blood Pressure 1: 116/84 Code: 8480-6 BMI: 53.4 Code: 93279-2 Heart Rate 1: 78 bpm Height: Code: 8302-2 Respiratory Rate: 18 bpm SpO2: 98% Temperature: 36.3 (C) / 97.3 (F) Weight: 264 lbs 4 oz Code: 16416-5 02/11/2021 Blood Pressure 1: 96/74 Code: 8480-6 BMI: 53.1 Code: 04152-7 Heart Rate 1: 72 bpm Height: Code: 8302-2 Respiratory Rate: 18 bpm SpO2: 98% Temperature: 36.5 (C) / 97.7 (F) Weight: 263 lbs Code: 34487-6 01/29/2021 Blood Pressure 1: 128/70 Code: 8480-6 BMI: 53.3 Code: 16758-7 Heart Rate 1: 75 bpm Height: 4'11 Code: 8302-2 Respiratory Rate: 20 bpm SpO2: 95% Temperature: 37.1 (C) / 98.7 (F) Weight: 264 lbs Code: 12870-1 12/17/2020 Blood Pressure 1: 134/82 Code: 8480-6 BMI: 53.1 Code: 89173-8 Heart Rate 1: 90 bpm Height: 4'11 Code: 8302-2 Respiratory Rate: 16 bpm SpO2: 98% Temperature: 36.4 (C) / 97.5 (F) Weight: 263 lbs Code: 55292-1 10/29/2020 Blood Pressure 1: 98/66 Code: 8480-6 BMI: 53.3 Code: 35320-4 Heart Rate 1: 80 bpm Height: 4' Code: 8302-2 Respiratory Rate: 16 bpm SpO2: 99% Temperature: 36.6 (C) / 97.9 (F) Weight: 264 lbs Code: 70643-4 09/24/2020 Blood Pressure 1: 122/84 Code: 8480-6 BMI: 53.1 Code: 88950-5 Heart Rate 1: 68 bpm Height: 4 Code: 8302-2 Respiratory Rate: 16 bpm Temperature: 36.7 (C) / 98.1 (F) Weight: 263 lbs Code: 26375-6 06/11/2020 Blood Pressure 1: 116/68 Code: 8480-6 BMI: 55.1 Code: 45719-1 Heart Rate 1: 90 bpm Height: Code: 8302-2 Random Blood Sugar: 127/NaN Respiratory Rate: 16 bpm SpO2: 98% Temperature: 36.5 (C) / 97.7 (F) Weight: 273 lbs Code: 84302-9 05/14/2020 Blood Pressure 1: 100/82 Code: 8480-6 BMI: 54.7 Code: 00367-2 Heart Rate 1: 86 bpm Height: 4 Code: 8302-2 Respiratory Rate: 18 bpm SpO2: 98% Temperature: 36.6 (C) / 97.9 (F) Weight: 271 lbs Code: 00360-6 04/17/2020 Blood Pressure 1: 10 7 Code: 8480-6 Heart Rate 1: 90 bpm Weight: 264 lbs Code: 09713-1 03/21/2020 Blood Pressure 1: 139/87 Code: 8480-6 BMI: 53.9 Code: 68748-2 Heart Rate 1: 86 bpm Height: 4 Code: 8302-2 SpO2: % Weight: 267 lbs Code: 56131-5 02/14/2020 BMI: 54.5 Code: 92205-1 Height: 4 Code: 8302-2 Weight: 270 lbs Code: 73218-7 01/24/2020 BMI: 55.9 Code: 62544-0 Height: 4'11 Code: 8302-2 Weight: 277 lbs Code: 37603-8 01/01/2020 Random Blood Sugar: 171/NaN 11/28/2019 Blood Pressure 1: 120/85 Code: 8480-6 BMI: 58.8 Code: 38686-8 Heart Rate 1: 92 bpm Height: 4'11 Code: 8302-2 Respiratory Rate: 18 bpm SpO2: 97% Temperature: 36.4 (C) / 97.5 (F) Weight: 291 lbs Code: 73818-7 10/17/2019 Blood Pressure 1: 110/62 Code: 8480-6 BMI: 59.6 Code: 57288-1 Heart Rate 1: 101 bpm Height: 4'11 Code: 8302-2 Random Blood Sugar: 144/NaN Respiratory Rate: 16 bpm SpO2: 99% Temperature: 36.7 (C) / 98.0 (F) Weight: 295 lbs Code: 83139-1 09/19/2019 Blood Pressure 1: 128/82 Code: 8480-6 BMI: 58.8 Code: 43553-7 Heart Rate 1: 98 bpm Height: 4'11 Code: 8302-2 Respiratory Rate: 18 bpm SpO2: 98% Temperature: 37.5 (C) / 99.5 (F) Weight: 291 lbs Code: 41609-0 07/04/2019 Random Blood Sugar: 131/NaN 06/21/2019 Blood Pressure 1: 136/78 Code: 8480-6 BMI: 56.8 Code: 31692-3 Heart Rate 1: 78 bpm Height: 4'11 Code: 8302-2 Random Blood Sugar: 118/NaN Reported Pain Level (Scale 0-10): Respiratory Rate: 18 bpm SpO2: 99% Temperature: 36.7 (C) / 98.1 (F) Weight: 281 lbs Code: 61229-7 05/24/2019 Blood Pressure 1: 110/68 Code: 8480-6 BMI: 56.8 Code: 90487-8 Heart Rate 1: 83 bpm Height: 4'11 Code: 8302-2 Respiratory Rate: 18 bpm SpO2: 99% Temperature: 36.5 (C) / 97.7 (F) Weight: 281 lbs Code: 88413-0 04/25/2019 Blood Pressure 1: 140/98 Code: 8480-6 BMI: 55.3 Code: 96257-8 Heart Rate 1: 100 bpm Height: 4'11 Code: 8302-2 Respiratory Rate: 20 bpm SpO2: 98% Temperature: 36.3 (C) / 97.3 (F) Weight: 274 lbs Code: 54274-4 03/28/2019 Blood Pressure 1: 128/88 Code: 8480-6 BMI: 57.1 Code: 61198-8 Heart Rate 1: 88 bpm Height: 4'11 Code: 8302-2 Respiratory Rate: 16 bpm SpO2: 99% Temperature: 36.3 (C) / 97.4 (F) Weight: 282 lbs 13 oz Code: 87006-7 02/14/2019 Blood Pressure 1: 122/80 Code: 8480-6 BMI: 56.1 Code: 19409-1 Heart Rate 1: 102 bpm Height: 4'11 Code: 8302-2 Respiratory Rate: 20 bpm SpO2: 98% Temperature: 37.2 (C) / 99.0 (F) Weight: 278 lbs Code: 93296-3 01/31/2019 Blood Pressure 1: 144/82 Code: 8480-6 BMI: 55.3 Code: 44241-1 Heart Rate 1: 104 bpm Height: 4'11 Code: 8302-2 Random Blood Sugar: 110/NaN Respiratory Rate: 20 bpm SpO2: 99% Temperature: 37.0 (C) / 98.6 (F) Weight: 274 lbs Code: 46327-8 12/27/2018 Blood Pressure 1: 110/78 Code: 8480-6 BMI: 54.3 Code: 61886-7 Heart Rate 1: 66 bpm Height: 4'11 Code: 8302-2 Karnofsky Score (0-100): 60 Random Blood Sugar: 112/NaN Respiratory Rate: 18 bpm SpO2: 99% Temperature: 36.8 (C) / 98.2 (F) Weight: 269 lbs Code: 33204-1 11/29/2018 Blood Pressure 1: 128/80 Code: 8480-6 BMI: 52.5 Code: 58972-6 Heart Rate 1: 55 bpm Height: 4'11 Code: 8302-2 Respiratory Rate: 18 bpm SpO2: 97% Temperature: 36.4 (C) / 97.5 (F) Weight: 260 lbs Code: 58564-4 10/04/2018 Blood Pressure 1: 118/74 Code: 8480-6 BMI: 55.5 Code: 20343-1 Heart Rate 1: 74 bpm Height: 4'11 Code: 8302-2 Respiratory Rate: 18 bpm SpO2: 98% Temperature: 36.9 (C) / 98.4 (F) Weight: 275 lbs Code: 86190-9 09/06/2018 Blood Pressure 1: 110/80 Code: 8480-6 BMI: 55.7 Code: 38440-8 Heart Rate 1: 74 bpm Height: 4'11 Code: 8302-2 Random Blood Sugar: 106/NaN Respiratory Rate: 16 bpm SpO2: 98% Temperature: 36.5 (C) / 97.7 (F) Weight: 276 lbs Code: 12963-2 08/09/2018 Blood Pressure 1: 115/77 Code: 8480-6 BMI: 56.6 Code: 42033-9 Heart Rate 1: 75 bpm Height: 4'11 Code: 8302-2 Random Blood Sugar: 137/NaN Respiratory Rate: 18 bpm SpO2: 98% Temperature: 37.4 (C) / 99.3 (F) Weight: 280 lbs Code: 66161-1 07/12/2018 Blood Pressure 1: 125/78 Code: 8480-6 BMI: 57.2 Code: 79716-8 Heart Rate 1: 72 bpm Height: 4'11 Code: 8302-2 Random Blood Sugar: 103/NaN Respiratory Rate: 16 bpm SpO2: 98% Temperature: 36.3 (C) / 97.3 (F) Weight: 283 lbs Code: 35804-5 06/14/2018 Blood Pressure 1: 121/75 Code: 8480-6 BMI: 59.0 Code: 48940-1 Heart Rate 1: 84 bpm Height: 4'11 Code: 8302-2 Random Blood Sugar: 92/NaN Respiratory Rate: 16 bpm SpO2: 98% Temperature: 37.6 (C) / 99.7 (F) Weight: 292 lbs Code: 57232-2 05/31/2018 Blood Pressure 1: 113/71 Code: 8480-6 BMI: 59.0 Code: 20084-3 Heart Rate 1: 71 bpm Height: 4'11 Code: 8302-2 Random Blood Sugar: 123/NaN Respiratory Rate: 16 bpm SpO2: 98% Temperature: 37.4 (C) / 99.4 (F) Weight: 292 lbs 2 oz Code: 37655-3 Reason For Visit Reason For Visit Effective [...] BMI 50.0-59.9 kg/sq m[ICD10: Z68.43] [facility] [address] [place] [address] CPT-4: 19384 11/09/19 24 ([id number]) (EST PT) DETAILED TELEHEALTH VISIT Diagnosis: Type 2 diabetes mellitus with hyperglycemia, without long-term current use of insulin[ICD10: E11.65] Diagnosis: Impetigo[ICD10: L01.00] Diagnosis: Major depression, recurrent[ICD10: F33.9] [facility] [address] [place], [place] [address] CPT-4: 00885 10/21/19 24 ([id number]) Home or Residence Visit Est Pt - Moderate Level, 40 mins Diagnosis: Type 2 diabetes mellitus with peripheral neuropathy[ICD10: E11.42] Diagnosis: Hypertensive heart disease without heart failure[ICD10: I11.9] Diagnosis: Upper respiratory infection[ICD10: J06.9] [facility] [address] [place] [address] CPT-4: 64510 09/20/20 23 ([id number]) Home or Residence Visit Est Pt - High Level, 60 mins Diagnosis: Type 2 diabetes mellitus with hyperglycemia, without long-term current use of insulin[ICD10: E11.65] Diagnosis: Right foot pain[ICD10: M79.671] Diagnosis: Hypertensive heart disease without heart failure[ICD10: I11.9] Diagnosis: Encounter for immunization[ICD10: Z23] [facility] [address] [place] [address] CPT-4: 00918 08/05/20 23 ([id number]) Home or Residence Visit Est Pt - Moderate Level, 40 mins Diagnosis: Type 2 diabetes mellitus with peripheral neuropathy[ICD10: E11.42] Diagnosis: Hypertensive heart disease without heart failure[ICD10: I11.9] Diagnosis: Major depression, recurrent[ICD10: F33.9] Diagnosis: Adult BMI 50.0-59.9 kg/sq m[ICD10: Z68.43] [facility] [address] [place] [address] CPT-4: 90478 06/24/20 23 ([id number]) Home or Residence Visit Est Pt - Moderate Level, 40 mins Diagnosis: Type 2 diabetes mellitus with peripheral neuropathy[ICD10: E11.42] Diagnosis: Hyperlipidemia, mixed[ICD10: E78.2] Diagnosis: Hypertensive heart disease without heart failure[ICD10: I11.9] Diagnosis: Major depression, recurrent[ICD10: F33.9] Diagnosis: Vitamin D deficiency[ICD10: E55.9] Diagnosis: Nonintractable epileptic seizures due to external causes, without status epilepticus[ICD10: G40.509] [facility] [address] [place] [address] CPT-4: 11501 05/04/20 23 ([id number]) Home or Residence Visit Est Pt - Moderate Level, 40 mins Diagnosis: Type 2 diabetes mellitus with peripheral neuropathy[ICD10: E11.42] Diagnosis: Hypertensive heart disease[ICD10: I11.9] Diagnosis: Major depression, recurrent[ICD10: F33.9] Diagnosis: Insomnia[ICD10: G47.00] Diagnosis: Adult BMI 50.0-59.9 kg/sq m[ICD10: Z68.43] [facility] [address] [place], [place] [address] CPT-4: 01625 01/28/20 23 ([id number]) Home or Residence Visit Est Pt - Moderate Level, 40 mins Diagnosis: GERD (gastroesophageal reflux disease)[ICD10: K21.9] Diagnosis: Type 2 diabetes mellitus with peripheral neuropathy[ICD10: E11.42] Diagnosis: Hypertensive heart disease[ICD10: I11.9] Diagnosis: Major depression, recurrent[ICD10: F33.9] [facility] [address] [place], [place] [address] CPT-4: 47242 11/23/19 23 ([id number]) Home or Residence Visit Est Pt - Moderate Level, 40 mins Diagnosis: Type 2 diabetes mellitus with peripheral neuropathy[ICD10: E11.42] Diagnosis: Hypertensive heart disease[ICD10: I11.9] Diagnosis: Major depression, recurrent[ICD10: F33.9] Diagnosis: Open wound of right middle finger[ICD10: S61.202A] Diagnosis: Adult BMI 50.0-59.9 kg/sq m[ICD10: Z68.43] Diagnosis: Encounter for screening for tobacco use[ICD10: Z01.89] [facility] [address] [place], [place] [address] CPT-4: 29751 10/20/19 23 ([id number]) HOME VISIT EST PATIENT Diagnosis: Type 2 diabetes mellitus with peripheral neuropathy[ICD10: E11.42] Diagnosis: Hypertension[ICD10: I10] Diagnosis: Adult BMI 50.0-59.9 kg/sq m[ICD10: Z68.43] Diagnosis: Fungal infection of skin[ICD10: B36.9] Diagnosis: Encounter for immunization[ICD10: Z23] Diagnosis: Influenza vaccine refused[ICD10: Z28.21] [facility] [address] [place], [place] [address] CPT-4: 75791 08/17/20 22 ([id number]) HOME VISIT EST PATIENT Diagnosis: Type 2 diabetes mellitus with peripheral neuropathy[ICD10: E11.42] Diagnosis: Hypertensive heart disease[ICD10: I11.9] Diagnosis: Major depression, recurrent[ICD10: F33.9] Diagnosis: Hypothyroid[ICD10: E03.9] Diagnosis: Obstructive sleep apnea (adult) (pediatric)[ICD10: G47.33] Diagnosis: Adult BMI 50.0-59.9 kg/sq m[ICD10: Z68.43] Diagnosis: Influenza vaccine refused[ICD10: Z28.21] Anna Pal[facility] [address] [place], [place] [address] CPT-4: 28587 06/23/20 22 ([id number]) HOME VISIT EST PATIENT Diagnosis: Hypertension[ICD10: I10] Diagnosis: Type 2 diabetes mellitus with peripheral neuropathy[ICD10: E11.42] Diagnosis: Adult BMI 50.0-59.9 kg/sq m[ICD10: Z68.43] Diagnosis: Hyperlipidemia, mixed[ICD10: E78.2] Chivo Bishop [facility] [address] [place], [place] [address] CPT-4: 57545 04/19/20 ([id number]) HOME VISIT EST PATIENT Diagnosis: Hypertension[ICD10: I10] Diagnosis: Type 2 diabetes mellitus with peripheral neuropathy[ICD10: E11.42] Diagnosis: Adult BMI 50.0-59.9 kg/sq m[ICD10: Z68.43] Diagnosis: Hyperlipidemia, mixed[ICD10: E78.2] Diagnosis: Obstructive sleep apnea (adult) (pediatric)[ICD10: G47.33] Diagnosis: Allergic rhinitis[ICD10: J30.9] Diagnosis: (Z00.00-V70.9) Encounter for general adult medical examination without abnormal findings[ICD10: Z00.00] Chivo Bishop [facility] [address] [place], [place] [address] CPT-4: 06901 02/12/20 22 ([id number]) HOME VISIT EST PATIENT Diagnosis: Hypertension[ICD10: I10] Diagnosis: Hypertensive heart disease[ICD10: I11.9] Diagnosis: Type 2 diabetes mellitus with peripheral neuropathy[ICD10: E11.42] Diagnosis: Adult BMI 50.0-59.9 kg/sq m[ICD10: Z68.43] Diagnosis: Vitamin D deficiency[ICD10: E55.9] Diagnosis: Hyperlipidemia, mixed[ICD10: E78.2] [facility] Nair [facility] [address] [place], [place] [address] CPT-4: 50239 12/04/19 22 ([id number]) HOME VISIT EST PATIENT Diagnosis: Adult BMI 50.0-59.9 kg/sq m[ICD10: Z68.43] Diagnosis: Type 2 diabetes mellitus with peripheral neuropathy[ICD10: E11.42] Diagnosis: Syncope and collapse[ICD10: R55] Diagnosis: Family history of seizures[ICD10: Z84.89] Diagnosis: Obstructive sleep apnea (adult) (pediatric)[ICD10: G47.33] Chivo Salvadorsofiya [facility] [address] [place], [place] [address] CPT-4: 52826 11/02/19 22 ([id number]) HOME VISIT EST PATIENT Diagnosis: Type 2 diabetes mellitus with peripheral neuropathy[ICD10: E11.42] Diagnosis: Adult BMI 50.0-59.9 kg/sq m[ICD10: Z68.43] Diagnosis: Diarrhea[ICD10: R19.7] Diagnosis: Syncope and collapse[ICD10: R55] Diagnosis: Family history of seizures[ICD10: Z84.89] Chivo Salvadorsofiya [facility] [address] [place], [place] [address] CPT-4: 64929 10/07/19 22 ([id number]) Other Reason/Patient not seen Diagnosis: Patient not seen[ICD10: UXZ.01] Chivo Salvadorsofiya [facility] [address] [place], [place] [address] CPT-4: 07483 09/10/20 21 ([id number]) (EST PT) EXPANDED PROBLEM FOCUSED TELEHEALTH VISIT Diagnosis: Type 2 diabetes mellitus with peripheral neuropathy[ICD10: E11.42] Diagnosis: GERD (gastroesophageal reflux disease)[ICD10: K21.9] Diagnosis: Hyperlipidemia, unspecified[ICD10: E78.5] Diagnosis: Diarrhea[ICD10: R19.7] Chivo Salvadorsofiya [facility] [address] [place], [place] [address] CPT-4: 30557 08/13/20 21 ([id number]) (EST PT) EXPANDED PROBLEM FOCUSED TELEHEALTH VISIT Diagnosis: Type 2 diabetes mellitus with peripheral neuropathy[ICD10: E11.42] Diagnosis: GERD (gastroesophageal reflux disease)[ICD10: K21.9] Diagnosis: Hyperlipidemia, unspecified[ICD10: E78.5] Diagnosis: Dyspnea, unspecified[ICD10: R06.00] Chivo Bishop [facility] [address] [place], [place] [address] CPT-4: 68383 07/06/20 21 ([id number]) (EST PT) EXPANDED PROBLEM FOCUSED TELEHEALTH VISIT Diagnosis: COVID-19 virus RNA test result positive at limit of detection[ICD10: U07.1] Diagnosis: Type 2 diabetes mellitus with peripheral neuropathy[ICD10: E11.42] Diagnosis: GERD (gastroesophageal reflux disease)[ICD10: K21.9] Diagnosis: Adjustment disorder with mixed anxiety and depressed mood[ICD10: F43.23] Chivo Bishop [facility] [address] [place], [place] [address] CPT-4: 31143 06/10/20 21 ([id number]) (EST PT) DETAILED TELEHEALTH VISIT Diagnosis: Upper respiratory infection[ICD10: J06.9] Diagnosis: Type 2 diabetes mellitus with peripheral neuropathy[ICD10: E11.42] [facility] [address] [place], [place] [address] CPT-4: 23829 06/02/20 21 ([id number]) (EST PT) EXPANDED PROBLEM FOCUSED TELEHEALTH VISIT Diagnosis: Syncope and collapse[ICD10: R55] Diagnosis: Type 2 diabetes mellitus with peripheral neuropathy[ICD10: E11.42] Diagnosis: Family history of seizures[ICD10: Z84.89] Diagnosis: Hypertensive heart disease with heart failure[ICD10: I11.0] Diagnosis: Chronic kidney disease, stage 2 (mild)[ICD10: N18.2] Chivogenevieve Bishop [facility] [address] [place], [place] [address] CPT-4: 83216 05/20/20 21 ([id number]) (EST PT) DETAILED TELEHEALTH VISIT Diagnosis: Syncope and collapse[ICD10: R55] Diagnosis: Type 2 diabetes mellitus with peripheral neuropathy[ICD10: E11.42] Diagnosis: Family history of seizures[ICD10: Z84.89] Diagnosis: Hypertensive heart disease with heart failure[ICD10: I11.0] Diagnosis: Chronic kidney disease, stage 2 (mild)[ICD10: N18.2] Diagnosis: Anorexia[ICD10: R63.0] [facility] [address] [place], [place] [address] CPT-4: 65055 04/28/20 21 ([id number]) (EST PT) EXPANDED PROBLEM FOCUSED TELEHEALTH VISIT Diagnosis: Type 2 diabetes mellitus with peripheral neuropathy[ICD10: E11.42] Diagnosis: Hypertensive heart disease with heart failure[ICD10: I11.0] Diagnosis: Post-traumatic stress disorder, unspecified[ICD10: F43.10] Diagnosis: Adjustment disorder with mixed anxiety and depressed mood[ICD10: F43.23] Chivo Bishop [facility] [address] [place], [place] [address] CPT-4: 73186 04/15/20 21 HOME VISIT EST PATIENT Diagnosis: Type 2 diabetes mellitus with peripheral neuropathy[ICD10: E11.42] Diagnosis: Hypertensive heart disease with heart failure[ICD10: I11.0] [facility] [address] [place], [place] [address] CPT-4: 50530 04/01/20 21 ([id number]) (EST PT) DETAILED TELEHEALTH VISIT Diagnosis: Blister[ICD10: T14.8XXA] Diagnosis: Type 2 diabetes mellitus with peripheral neuropathy[ICD10: E11.42] Diagnosis: Anorexia[ICD10: R63.0] Diagnosis: Obstructive sleep apnea (adult) (pediatric)[ICD10: G47.33] [facility] [address] [place], [place] [address] CPT-4: 10015 03/24/20 21 ([id number]) (EST PT) DETAILED TELEHEALTH VISIT Diagnosis: Type 2 diabetes mellitus with peripheral neuropathy[ICD10: E11.42] Diagnosis: Hypertensive heart disease with heart failure[ICD10: I11.0] Diagnosis: Adjustment disorder with mixed anxiety and depressed mood[ICD10: F43.23] Diagnosis: Encounter for screening for tobacco use[ICD10: Z01.89] [facility] [address] [place], [place] [address] CPT-4: 79739 03/13/20 21 HOME VISIT EST PATIENT Diagnosis: Type 2 diabetes mellitus with peripheral neuropathy[ICD10: E11.42] Diagnosis: Elevated liver enzymes[ICD10: R74.8] Diagnosis: Hyperlipidemia, unspecified[ICD10: E78.5] [facility] [address] [place], [place] [address] CPT-4: 79832 02/12/20 21 HOME VISIT EST PATIENT Diagnosis: Hypertensive heart disease with heart failure[ICD10: I11.0] Diagnosis: Type 2 diabetes mellitus with peripheral neuropathy[ICD10: E11.42] Diagnosis: Chronic kidney disease, stage 2 (mild)[ICD10: N18.2] Diagnosis: History of bladder surgery[ICD10: Z98.890] Diagnosis: Urinary retention with incomplete bladder emptying[ICD10: R33.9] Diagnosis: GERD (gastroesophageal reflux disease)[ICD10: K21.9] Chivo Bishop [facility] [address] [place], [place] [address] CPT-4: 22253 01/30/20 21 ([id number]) (EST PT) DETAILED TELEHEALTH VISIT Diagnosis: Hypertensive [...] for screening for depression[ICD10: Z13.31] Anna Pal[facility] [address] [place], [place] [address] CPT-4: 63408 01/14/20 21 HOME VISIT EST PATIENT Diagnosis: Type 2 diabetes mellitus with peripheral neuropathy[ICD10: E11.42] Diagnosis: Hypertensive heart disease with heart failure[ICD10: I11.0] Diagnosis: Obstructive sleep apnea (adult) (pediatric)[ICD10: G47.33] Diagnosis: Anorexia[ICD10: R63.0] [facility] [address] [place] [address] CPT-4: 90200 12/18/19 21 ([id number]) (EST PT) EXPANDED PROBLEM FOCUSED TELEHEALTH VISIT Diagnosis: Superficial burn of multiple sites of right hand, subsequent encounter[ICD10: T23.191D] Diagnosis: Type 2 diabetes mellitus with peripheral neuropathy[ICD10: E11.42] Diagnosis: Essential (primary) hypertension[ICD10: I10] Diagnosis: History of surgery on right wrist[ICD10: Z98.890] Diagnosis: GERD (gastroesophageal reflux disease)[ICD10: K21.9] Chivo Bishop [facility] [address] [place], [place] [address] CPT-4: 67259 11/28/19 21 ([id number]) (EST PT) EXPANDED PROBLEM FOCUSED TELEHEALTH VISIT Diagnosis: Type 2 diabetes mellitus with peripheral neuropathy[ICD10: E11.42] Diagnosis: Essential (primary) hypertension[ICD10: I10] Diagnosis: History of surgery on right wrist[ICD10: Z98.890] [facility] [address] [place], [place] [address] CPT-4: 97992 11/24/19 21 HOME VISIT EST PATIENT Diagnosis: Type 2 diabetes mellitus with peripheral neuropathy[ICD10: E11.42] Diagnosis: Chronic kidney disease, stage 2 (mild)[ICD10: N18.2] Diagnosis: Right wrist pain[ICD10: M25.531] Diagnosis: Essential (primary) hypertension[ICD10: I10] Diagnosis: GERD (gastroesophageal reflux disease)[ICD10: K21.9] Diagnosis: History of surgery on right wrist[ICD10: Z98.890] Diagnosis: Adjustment disorder with mixed anxiety and depressed mood[ICD10: F43.23] [facility] [address] [place], [place] [address] CPT-4: 40865 10/29/19 21 HOME VISIT EST PATIENT Diagnosis: Type 2 diabetes mellitus with peripheral neuropathy[ICD10: E11.42] Diagnosis: Hypertensive heart disease with heart failure[ICD10: I11.0] Diagnosis: Adjustment disorder with mixed anxiety and depressed mood[ICD10: F43.23] Diagnosis: GERD (gastroesophageal reflux disease)[ICD10: K21.9] Diagnosis: Abnormal urine finding[ICD10: R82.90] [facility] [address] [place], [place] [address] CPT-4: 82625 09/24/20 20 ([id number]) (EST PT) EXPANDED PROBLEM FOCUSED TELEHEALTH VISIT Diagnosis: Type 2 diabetes mellitus with peripheral neuropathy[ICD10: E11.42] [facility] [address] [place], [place] [address] CPT-4: 57809 08/26/20 ([id number]) (EST PT) EXPANDED PROBLEM FOCUSED TELEHEALTH VISIT Diagnosis: Type 2 diabetes mellitus with peripheral neuropathy[ICD10: E11.42] Diagnosis: Adjustment disorder with mixed anxiety and depressed mood[ICD10: F43.23] Diagnosis: Polyneuropathy, unspecified[ICD10: G62.9] [facility] [address] [place], [place] [address] CPT-4: 33496 08/19/20 ([id number]) (EST PT) PROBLEM FOCUSED TELEHEALTH VISIT Diagnosis: Type 2 diabetes mellitus with peripheral neuropathy[ICD10: E11.42] Diagnosis: Essential (primary) hypertension[ICD10: I10] [facility] [address] [place], [place] [address] CPT-4: 77544 07/22/20 ([id number]) REMOTE E/M EST. PT 15MINS ([id number]) Diagnosis: Type 2 diabetes mellitus with peripheral neuropathy[ICD10: E11.42] Diagnosis: Essential (primary) hypertension[ICD10: I10] Diagnosis: Encounter for screening, unspecified[ICD10: Z13.9] [facility] [address] [place], [place] [address] CPT-4: G9487 07/08/20 HOME VISIT EST PATIENT Diagnosis: Hypertensive heart disease with heart failure[ICD10: I11.0] Diagnosis: Chronic kidney disease, unspecified[ICD10: N18.9] Diagnosis: Type 2 diabetes mellitus with peripheral neuropathy[ICD10: E11.42] Diagnosis: Hyperlipidemia, unspecified[ICD10: E78.5] Diagnosis: Hypothyroidism, unspecified[ICD10: E03.9] Diagnosis: Encounter for immunization[ICD10: Z23] Diagnosis: (Z12.4-V76.2) Encounter for screening for malignant neoplasm of cervix[ICD10: Z12.4] [facility] [address] [place], [place] [address] CPT-4: 91598 06/11/20 HOME VISIT EST PATIENT Diagnosis: Type 2 diabetes mellitus with peripheral neuropathy[ICD10: E11.42] Diagnosis: Right wrist pain[ICD10: M25.531] Diagnosis: Hypertensive heart disease with heart failure[ICD10: I11.0] [facility] [address] [place], [place] [address] CPT-4: 63059 05/14/20 20 ([id number]) (EST PT) EXPANDED PROBLEM FOCUSED TELEHEALTH VISIT Diagnosis: Type 2 diabetes mellitus with peripheral neuropathy[ICD10: E11.42] Diagnosis: Chronic kidney disease, unspecified[ICD10: N18.9] Diagnosis: (Z12.31-V76.12) Encounter for screening mammogram for malignant neoplasm of breast[ICD10: Z12.31] Diagnosis: (Z12.11-V76.51) Encounter for screening for malignant neoplasm of colon[ICD10: Z12.11] [facility] [address] [place], [place] [address] CPT-4: 13313 04/17/20 20 ([id number]) (EST PT) EXPANDED PROBLEM FOCUSED TELEHEALTH VISIT Diagnosis: Essential (primary) hypertension[ICD10: I10] Diagnosis: Adult BMI 50.0-59.9 kg/sq m[ICD10: Z68.43] [facility] [address] [place], [place] [address] CPT-4: 17847 03/21/20 20 ([id number]) (EST PT) EXPANDED PROBLEM FOCUSED TELEHEALTH VISIT Diagnosis: Type 2 diabetes mellitus with peripheral neuropathy[ICD10: E11.42] Diagnosis: Essential (primary) hypertension[ICD10: I10] Diagnosis: Abrasion of toe[ICD10: S90.416A] Diagnosis: Encounter for screening for malignant neoplasm of cervix[ICD10: Z12.4] Diagnosis: Obstructive sleep apnea (adult) (pediatric)[ICD10: G47.33] Anna Palomo [facility] [address] [place], [place] [address] CPT-4: 03911 02/14/20 20 ([id number]) (EST PT) EXPANDED PROBLEM FOCUSED TELEHEALTH VISIT Diagnosis: Type 2 diabetes mellitus with peripheral neuropathy[ICD10: E11.42] Diagnosis: Essential (primary) hypertension[ICD10: I10] Anna [facility] [address] [place] [address] CPT-4: 11395 01/24/20 ([id number]) (EST PT) EXPANDED PROBLEM FOCUSED TELEHEALTH VISIT Diagnosis: Type 2 diabetes mellitus with peripheral neuropathy[ICD10: E11.42] Diagnosis: Essential (primary) hypertension[ICD10: I10] Diagnosis: [place] eye[ICD10: H10.029] Diagnosis: Syncope and collapse[ICD10: R55] Diagnosis: Encounter for screening for tobacco use[ICD10: Z01.89] Annahussein Culver [facility] [address] [place], [place] [address] CPT-4: 17723 01/01/20 HOME VISIT EST PATIENT Diagnosis: Adjustment disorder with mixed anxiety and depressed mood[ICD10: F43.23] Diagnosis: Hypertensive heart disease with heart failure[ICD10: I11.0] Diagnosis: Adult BMI 50.0-59.9 kg/sq m[ICD10: Z68.43] [facility] [address] [place], [place] [address] CPT-4: 02047 11/28/19 HOME VISIT EST PATIENT Diagnosis: Essential (primary) hypertension[ICD10: I10] Diagnosis: Type 2 diabetes mellitus without complications[ICD10: E11.9] Diagnosis: Obstructive sleep apnea (adult) (pediatric)[ICD10: G47.33] Diagnosis: Asthma[ICD10: J45.909] Diagnosis: Adjustment disorder with mixed anxiety and depressed mood[ICD10: F43.23] Anna Cul[facility] [address] [place], [place] [address] CPT-4: 40924 10/17/19 HOME VISIT EST PATIENT Diagnosis: Type 2 diabetes mellitus without complications[ICD10: E11.9] Diagnosis: Hypertensive heart disease with heart failure[ICD10: I11.0] Diagnosis: Chronic kidney disease, unspecified[ICD10: N18.9] Diagnosis: Mixed incontinence[ICD10: N39.46] [facility] [address] [place] [address] CPT-4: 07519 09/19/20 HOME VISIT EST PATIENT Diagnosis: Chronic kidney disease, unspecified[ICD10: N18.9] Diagnosis: Essential (primary) hypertension[ICD10: I10] Diagnosis: Hypertensive heart disease with heart failure[ICD10: I11.0] Diagnosis: Hypothyroidism, unspecified[ICD10: E03.9] Diagnosis: Mixed incontinence[ICD10: N39.46] Diagnosis: Type 2 diabetes mellitus without complications[ICD10: E11.9] [facility] [address] [place], [place] [address] CPT-4: 45575 07/04/20 HOME VISIT EST PATIENT Diagnosis: Hyperlipidemia, unspecified[ICD10: E78.5] Diagnosis: Hypothyroidism, unspecified[ICD10: E03.9] Diagnosis: Mixed incontinence[ICD10: N39.46] Diagnosis: Type 2 diabetes mellitus without complications[ICD10: E11.9] Diagnosis: Chronic kidney disease, unspecified[ICD10: N18.9] Diagnosis: Obstructive sleep apnea (adult) (pediatric)[ICD10: G47.33] Diagnosis: Hypertensive heart disease with heart failure[ICD10: I11.0] [place] [id number] CPT-4: 85082 06/21/20 HOME VISIT EST PATIENT Diagnosis: Mixed incontinence[ICD10: N39.46] Diagnosis: Type 2 diabetes mellitus without complications[ICD10: E11.9] Diagnosis: Hypothyroidism, unspecified[ICD10: E03.9] Diagnosis: Hyperlipidemia, unspecified[ICD10: E78.5] Diagnosis: Apnea, not elsewhere classified[ICD10: R06.81] Diagnosis: Essential (primary) hypertension[ICD10: I10] Diagnosis: Encounter for screening, unspecified[ICD10: Z13.9] Diagnosis: Encounter for immunization[ICD10: Z23] Charlene Oropeza [facility] [address] [place], [place] [address] CPT-4: 78335 05/24/20 (IND) Independent Lab Draw Diagnosis: Patient Not Seen[ICD10: UXZ.01] [facility] [address] [place], [place] [address] CPT-4: IND 04/27/20 HOME VISIT EST PATIENT Diagnosis: Hypertensive heart disease with heart failure[ICD10: I11.0] Diagnosis: Unspecified asthma, uncomplicated[ICD10: J45.909] Diagnosis: Type 2 diabetes mellitus without complications[ICD10: E11.9] Diagnosis: Encounter for immunization[ICD10: Z23] Diagnosis: Encounter for screening for malignant neoplasm of cervix[ICD10: Z12.4] Charlene Oropeza [facility] [address] [place], [place] [address] CPT-4: [id number] 04/25/20 19 HOME VISIT EST PATIENT Diagnosis: Unspecified asthma, uncomplicated[ICD10: J45.909] Diagnosis: Apnea, not elsewhere classified[ICD10: R06.81] Diagnosis: Body mass index (BMI) 50-59.9 , adult[ICD10: Z68.43] Diagnosis: Essential (primary) hypertension[ICD10: I10] Diagnosis: Chest pain, unspecified[ICD10: R07.9] Diagnosis: Encounter for preprocedural cardiovascular examination[ICD10: Z01.810] Rasta [facility] [address] [place] [address] CPT-4: 22301 03/28/20 19 HOME VISIT EST PATIENT Diagnosis: Apnea, not elsewhere classified[ICD10: R06.81] Diagnosis: Body mass index (BMI) 50-59.9 , adult[ICD10: Z68.43] Rasta [facility] [address] [place], [place] [id number] CPT-4: 08399 02/15/20 19 HOME VISIT EST PATIENT Diagnosis: Apnea, not elsewhere classified[ICD10: R06.81] Diagnosis: Essential (primary) hypertension[ICD10: I10] Diagnosis: Type 2 diabetes mellitus without complications[ICD10: E11.9] Diagnosis: Unspecified asthma, uncomplicated[ICD10: J45.909] Diagnosis: Wheezing[ICD10: R06.2] [facility] Office [address] [place], [place] [id number] CPT-4: 82382 02/01/20 19 HOME VISIT EST PATIENT Diagnosis: Type 2 diabetes mellitus without complications[ICD10: E11.9] Diagnosis: Essential (primary) hypertension[ICD10: I10] Diagnosis: Unspecified asthma, uncomplicated[ICD10: J45.909] Diagnosis: Edema, unspecified[ICD10: R60.9] Diagnosis: Hypothyroidism, unspecified[ICD10: E03.9] Diagnosis: Abnormal electrocardiogram [ECG] [EKG][ICD10: R94.31] Rasta [facility] [address] [place], [place] [id number] CPT-4: 05954 12/28/19 19 HOME VISIT EST PATIENT Diagnosis: Type 2 diabetes mellitus without complications[ICD10: E11.9] Diagnosis: Essential (primary) hypertension[ICD10: I10] Diagnosis: Unspecified asthma, uncomplicated[ICD10: J45.909] Diagnosis: Wheezing[ICD10: R06.2] Diagnosis: Chest pain, unspecified[ICD10: R07.9] Diagnosis: Abnormal electrocardiogram [ECG] [EKG][ICD10: R94.31] Diagnosis: Adjustment disorder with mixed anxiety and depressed mood[ICD10: F43.23] Diagnosis: Post-traumatic stress disorder, unspecified[ICD10: F43.10] [facility] [address] [place], [place] [id number] CPT-4: 53553 11/29/19 19 HOME VISIT EST PATIENT Diagnosis: Type 2 diabetes mellitus without complications[ICD10: E11.9] Diagnosis: Essential (primary) hypertension[ICD10: I10] Diagnosis: Chronic kidney disease, unspecified[ICD10: N18.9] Diagnosis: Headache[ICD10: R51] [facility] [address] [place], [place] [id number] CPT-4: 63515 10/04/19 19 HOME VISIT EST PATIENT Diagnosis: Type 2 diabetes mellitus without complications[ICD10: E11.9] Diagnosis: Essential (primary) hypertension[ICD10: I10] Diagnosis: Chronic kidney disease, unspecified[ICD10: N18.9] Diagnosis: Hypothyroidism, unspecified[ICD10: E03.9] Diagnosis: Encounter for screening, unspecified[ICD10: Z13.9] Diagnosis: Post-traumatic stress disorder, unspecified[ICD10: F43.10] Diagnosis: Adjustment disorder with mixed anxiety and depressed mood[ICD10: F43.23] [facility] [address] [place], [place] [id number] CPT-4: 87964 09/06/20 18 HOME VISIT EST PATIENT Diagnosis: Adjustment disorder with mixed anxiety and depressed mood[ICD10: F43.23] Diagnosis: Post-traumatic stress disorder, unspecified[ICD10: F43.10] Diagnosis: Essential (primary) hypertension[ICD10: I10] Diagnosis: Unspecified asthma, uncomplicated[ICD10: J45.909] Diagnosis: Wheezing[ICD10: R06.2] Diagnosis: Type 2 diabetes mellitus without complications[ICD10: E11.9] [place] [address] CPT-4: 77264 08/09/20 18 HOME VISIT EST PATIENT Diagnosis: Adjustment disorder with mixed anxiety and depressed mood[ICD10: F43.23] Diagnosis: Post-traumatic stress disorder, unspecified[ICD10: F43.10] Diagnosis: Essential (primary) hypertension[ICD10: I10] Diagnosis: Unspecified asthma, uncomplicated[ICD10: J45.909] Diagnosis: Wheezing[ICD10: R06.2] Diagnosis: Type 2 diabetes mellitus without complications[ICD10: E11.9] Diagnosis: Edema, unspecified[ICD10: R60.9] [place] [address] CPT-4: 78981 07/12/20 18 HOME VISIT EST PATIENT Diagnosis: Post-traumatic stress disorder, unspecified[ICD10: F43.10] Diagnosis: Adjustment disorder with mixed anxiety and depressed mood[ICD10: F43.23] Diagnosis: Type 2 diabetes mellitus without complications[ICD10: E11.9] Diagnosis: Essential (primary) hypertension[ICD10: I10] Diagnosis: Unspecified asthma, uncomplicated[ICD10: J45.909] Diagnosis: Wheezing[ICD10: R06.2] Diagnosis: Edema, unspecified[ICD10: R60.9] 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) use of non-steroidal anti-inflammatories (NSAID)[ICD10: Z79.1] [place] [address] CPT-4: 28613 06/14/20 18 HOME VISIT NEW PATIENT Diagnosis: [...] , adult[ICD10: Z68.43] [facility] [address] [place] [address] CPT-4: 56105 05/31/20 18 Plan of Care Planned Activity [...] lose weight 11/09/2023 Appointment: Anna Culver WPtel: [address] [place], [place] [id number] E410 11/09/2023 Patient Education: Diabetes Completed 11/09/2023 [...] for depression 10/21/2023 Appointment: Anna Culver WPtel: [address] [place] [address] ETV 10/21/2023 Patient Education: Patient Medication Summary Completed 10/21/2023 Patient Education: Diabetes Completed 10/21/2023 Visit Plan: Visit time spent inv olved in medical discussion with patient, including obtaining history from patient, systems review, diagnostic and laboratory test review with patient. Assessment findings and plan reviewed with patient, including time to provide counseling, and education to patient Send copy of labs to Michell Matamoros [phone] E11.42-250.60 Type 2 diabetes mellitus with peripheral neuropathy Continues with varied blood sugars, elevations may be secondary to infectious process, continues with ozempic and januvia will check hgb a1c I11.9-402.90 Hypertensive heart disease without heart failure stable with current medications, will order labs J06.9-465.9 Upper respiratory infection will send prescription for Amoxicillin to local pharmacy 09/20/2023 Appointment: Anna Culver WPtel: [phone] E410 09/20/2023 Patient Education: Patient Medication [...] for review 08/05/2023 Appointment: Anna Culver WPtel: [address] [place] [address] E410 08/05/2023 Patient Education: Diabetes Completed 08/05/2023 [...] weight loss) 06/24/2023 Appointment: Palomo Anna WPtel: [address] [place], [place] [phone] E410 06/24/2023 Patient Education: Hypertension Completed 06/24/2023 [...] will continue lisinopril, HCTZ continue with [facility] Josh Simon MD G47.33 Obstructive sleep apnea (adult), J45.909 Asthma breathing stable, continue utilization of Symbicort, albuterol via neb. or MDI q 4 hrs. prn dyspnea, tolerating CPAP for a few hours nightly continue with [employer] [facility] BOWMAN K21.9 GERD (gastroesophageal reflux disease) symptoms improved, will continue omeprazole to 40mg at HS, continue famotidine, probiotic E11.42 Type 2 diabetes mellitus with peripheral neuropathy, Z68.43 Adult BMI 50.0-59.9 kg/sq m testing BS bid, range 99-133 continue Ozempic 1mg per week and gabapentin continue with Kerrie Pandya OD at [facility] trying to be more active, has step goal of 4000 steps daily, also limiting soda intake G47.00-780.52 Insomnia F33.9-296.30 Major depression, recurrent started on trazodone 50mg by Nichole Hernández, psychology for sleep issues patient feels sleep and mood much improved with this medication continue taking sertraline, buspirone Rexulti continue with [facility] [place] E78.2 Hyperlipidemia, mixed patient has re-started atorvastatin continue Mediterranean style eating E55.9 Vitamin D deficiency continue cholecalciferol refill sent 05/04/2023 Appointment: Palomo Anna WPtel: [address] [place], [place] [phone] E410 05/04/2023 Patient Education: Diabetes Completed 05/04/2023 [...] will continue lisinopril, HCTZ continue with [facility] Josh Simon MD G47.33 Obstructive sleep apnea (adult), J45.909 Asthma breathing stable, continue utilization of Symbicort, albuterol via neb. or MDI q 4 hrs. prn dyspnea, tolerating CPAP for a few hours nightly continue with [employer] [facility] BOWMAN K21.9 GERD (gastroesophageal reflux disease) symptoms improved, will continue omeprazole to 40mg at HS, continue famotidine, probiotic E11.42 Type 2 diabetes mellitus with peripheral neuropathy, Z68.43 Adult BMI 50.0-59.9 kg/sq m testing BS bid, range 99-133 continue Ozempic 1mg per week and gabapentin continue with Kerrie Pandya OD at [facility] trying to be more active, has step goal of 4000 steps daily, also limiting soda intake G47.00-780.52 Insomnia F33.9-296.30 Major depression, recurrent started on trazodone 50mg by Nichole Hernández, psychology for sleep issues patient feels sleep and mood much improved with this medication continue taking sertraline, buspirone Rexulti continue with [facility] [place] E78.2 Hyperlipidemia, mixed patient has re-started atorvastatin continue Mediterranean style eating E55.9 Vitamin D deficiency continue cholecalciferol refill sent 01/27/2023 Appointment: Palomo Anna WPtel: [address] [place], [place] [phone] E410 01/27/2023 Patient Education: Patient Medication Summary [...] min. < 89% SpO2 continue with [facility] Josh Simon MD G47.33 Obstructive sleep apnea (adult), J45.909 Asthma breathing stable, continue utilization of Symbicort, albuterol via neb. or MDI q 4 hrs. prn dyspnea, CPAP use continues nightly continue with [employer] [facility] BOWMAN K21.9 GERD (gastroesophageal reflux disease) [...] gabapentin continue with Kerrie Pandya OD at [facility] (06/30/21) F33.9-296.30 Major depression, recurrent 11/23/2021 PHQ 9 Score 0 continue taking sertraline, buspirone Rexulti continue with [facility] [place] canceled visit this month, next December 2021 [...] with Urologist 11/23/2022 Appointment: Anna Culver WPtel: [address] [place] [address] E410 11/23/2022 Patient Education: Depression Completed 11/23/2022 [...] min. < 89% SpO2 continue with [facility] Josh Simon MD will check labs this visit G47.33 Obstructive sleep apnea (adult), J45.909 Asthma breathing stable, continue utilization of Symbicort, albuterol via neb. or MDI q 4 hrs. prn dyspnea, CPAP use continues nightly continue with [employer] [facility] BOW[facility] last visit 05/31/2022 E11.42 Type 2 diabetes mellitus with peripheral neuropathy, Z68.43 Adult BMI 50.0-59.9 kg/sq m stable glucose monitor - testing bid FBS 115, trying to get closer to 100 continue Ozempic 1mg per week and gabapentin 06/23/2022 Hgb A1C 5.8, GFR 94 continue with Kerrie Pandya OD at [facility] (06/30/21) note 3 pound weight gain, admits to eating more over the holidays, continues to be active and motivated to lose weight, encouraged to limit carbs will check labs this visit F33.9-296.30 Major depression, recurrent continue taking sertraline, buspirone Seroquel complete and has been replaced with Rexulti continue with [facility] [place] will check labs this visit S61.202A-883.0 Open [...] prn arthralgia/myalgia 2022 Appointment: Anna Culver WPtel: [address] [place] [address] E4 2022 Patient Education: Hypertension Completed 2022 [...] min. < 89% SpO2 continue with [facility] Josh Simon MD G47.33 Obstructive sleep apnea (adult), J45.909 Asthma breathing stable CPAP use continues-was changed to nasal pillow mask at last pulmonogy visit, patient feels this has been helpful continue utilization of Symbicort, albuterol via neb. or MDI q 4 hrs. prn dyspnea, continue with [employer] [facility] BOWMAN last visit 05/31/2022-visit note reviewed previously E11.42 Type 2 diabetes mellitus with peripheral neuropathy, Z68.43 Adult BMI 50.0-59.9 kg/sq m stable glucose monitor range 99-143 - testing bid FBS 102 this morning continue Ozempic 1mg per week and gabapentin 06/23/2022 Hgb A1C 5.8, GFR 94 11/02/21 HgbA1C 5.6, GFR >100 continue with Kerrie Pandya OD at [facility] (06/30/21) Discussed benefits of weight loss clinic-patient [...] has been replaced with Rexulti continue with [employer] [facility] [place] B36.9-111.9 Fungal infection of skin inner left [...] prn arthralgia/myalgia 08/17/2022 Appointment: Palomo Anna WPtel: [address] [place] [address] E410 08/17/2022 Patient Education: Hypertension Completed 08/17/2022 [...] min. < 89% SpO2 continue with [facility] Josh Simon MD will check labs this visit G47.33 Obstructive sleep apnea (adult), J45.909 Asthma breathing stable CPAP use continues-was changed to nasal pillow mask at last pulmonogy visit, patient feels this has been helpful continue utilization of Symbicort, albuterol via neb. or MDI q 4 hrs. prn dyspnea, continue with [employer] [facility] BOWMAN last visit 05/31/2022-visit note reviewed E11.42 Type 2 diabetes mellitus with peripheral neuropathy, Z68.43 Adult BMI 50.0-59.9 kg/sq m stable glucose monitor range 103-156 - testing bid continue Ozempic 1mg per week and gabapentin 11/02/21 HgbA1C 5.6, GFR >100 continue with Kerrie Pandya OD at [facility] (06/30/21) discussed apps on her phone that [...] with Rexulti continue with [facility] [place] Z28.21-V64.06 Influenza vaccine refused refused influenza vaccine, [...] Urologist 06/23/2022 Appointment: Anna Culver WPtel: [phone] E4 06/23/2022 Patient Education: Weight Gain [...] min. < 89% SpO2 continue with [facility] Josh Simon MD E11.42 Type 2 diabetes mellitus with peripheral neuropathy, Z68.43 Adult BMI 50.0-59.9 kg/sq m glucose controlled, however body weight remains an issue glucose monitor averaging 100s-130s - bid increase Ozempic to maximum: 1mg per week, continue gabapentin 11/02/21 HgbA1C 5.6, GFR >100 continue with Kerrie Pandya OD at [facility] (06/30/21) encouraged to increase daily step [...] to assist with weight loss continue with [facility] [place] Below historical items not addressed this visit: Z00.00-V70.9 (Z00.00-V70.9) Encounter for general adult medical examination without abnormal findings 02/11/22 AWV complete G47.33 Obstructive sleep apnea (adult), J45.909 Asthma breathing stable CPAP use encouraged but pt seems uncertain of benefit continue utilization of Symbicort, albuterol via neb. or MDI q 4 hrs. prn dyspnea, continue with [employer] [facility] BOWMAN E03.9 Hypothyroidism continue levothyroxine 11/02/21 [...] Urologist 04/19/2022 Appointment: Chivo Bishop WPtel: [phone] E410 04/19/2022 Patient Education: Diabetes Completed 04/19/2022 Patient Education: Patient Medication Summary Completed 04/19/2022 Patient Education: Weight Gain Completed 04/19/2022 Appointment: Chivo Bishop WPtel: [phone] E410 02/11/2022 Patient Education: Patient Medication [...] min. < 89% SpO2 continue with [facility] Josh Simon MD E11.42 Type 2 diabetes mellitus with peripheral neuropathy, Z68.43 Adult BMI 50.0-59.9 kg/sq m glucose monitor 100s-120s - bid Ozempic 0.5mg per week, gabapentin 11/02/21 HgbA1C 5.6, GFR >100 continue with Kerrie Pandya OD at [facility] (06/30/21) encourage to continue with Dr. [...] recheck of Noct. Pulse. Ox continue with [employer] [facility] BOWMAN E03.9 Hypothyroidism continue levothyroxine 11/02/21 [...] mood continue taking sertraline, buspirone continue with [facility] [place] N39.46 Mixed incontinence, R33.9 Urinary retention with incomplete bladder emptying Z98.890-V45.89 History of bladder surgery Myrbetriq qd use of incontinence supplies 01/05/21 urinary stimulator implant - symptoms improved, urinating ~ 5 times per day continue with Urologist J30.9 Allergic rhinitis cetirizine, montelukast 12/03/2021 Appointment: Mikey Nair WPtel: [facility] 202b [id number] E410 12/03/2021 Patient Education: Patient Medication Summary Completed 12/03/2021 Patient Education: Diabetes Completed 12/03/2021 Patient Education: Hypertension Completed 12/03/2021 Patient Education: Obesity Completed 12/03/2021 Care Plan: Specialty Diagnostic Order Ordered 12/03/2021 Care Plan: Overnight Pulse ox Ordered 12/03/2021 Appointment: Chivo Bishop WPtel: [address] [place], [place] [id number] E410 11/02/2021 Patient Education: Patient Medication Summary [...] worsening symptoms 10/07/2021 Appointment: Chivo Bishop WPtel: [address] [place] [address] E410 10/07/2021 Patient Education: Patient Medication Summary Completed 10/07/2021 Patient Education: Weight Gain Completed 10/07/2021 Patient Education: Patient Medication Summary Completed 09/11/2021 Care Plan: External Laboratory Tests Ordered 09/11/2021 Appointment: Chivo Bishop WPtel: [phone] ETV 09/10/2021 Patient Education: Patient Medication Summary Completed 09/10/2021 Visit Plan: Video and audio call using [employer] R19.7-994.91 Diarrhea intermittent symptoms over the past few [...] demand 05/20/2021 Hemoglobin A1C 5.4 stable 10/17/2019 Outlook Fany 7/10-instructed on good daily foot care [...] previously discussed stress management routine follow up [facility] [place] 03/13/2021 PHQ 9 Score 4 Sertraline 200mg daily 04/01/2021 Functional Assessment independent with ADLs R63.0-783.0 Anorexia consuming 1 -2 meals per day advised to continue to try small, more frequent food intake, discussed limiting carbonated beverages discussed benefits of [employer] not using note weight has [...] cervix most recent pap in June 2020-[facility]-reports pap negative Z01.89-V72.85 Encounter for screening for tobacco use 03/13/2021 Tobacco screen complete-patient denies ever smoking Z12.31-V76.12 (Z12.31-V76.12) Encounter for screening mammogram for malignant neoplasm of breast Z12.11-V76.51 (Z12.11-V76.51) Encounter for screening for malignant neoplasm of colon Preventative testing not indicated due to age *I reviewed the most recent CDC guidelines regarding Covid-19/Coronavirus with the patient/caregiver/designee 08/13/2021 Appointment: Chivo Bishop WPtel: [address] [place], [place] [id number] ETV 08/13/2021 Patient Education: Patient Medication Summary Completed 08/13/2021 Patient Education: [employer] Well[employer] Premier Savings Card Completed 08/13/2021 Patient Education: levothyroxine- [employer] Coupon [id number] [email or web address].samplemd.com/sa mplemd/resources/[email or web address] Completed 08/13/2021 Visit Plan: Video and audio call using [employer] U07.1-074.89 COVID-19 virus RNA test result positive at [...] previously discussed stress management routine follow up [facility] [place] 03/13/2021 PHQ 9 Score 4 Sertraline 200mg daily 04/01/2021 Functional Assessment independent with ADLs R63.0-783.0 Anorexia consuming 1 -2 meals per day advised to continue to try small, more frequent food intake, discussed limiting carbonated beverages as this may make her feel full taking away appetite discussed benefits of [employer] not using note weight has [...] new appt for pap in June 2020-[facility]-reports pap negative Z01.89-V72.85 Encounter for screening for tobacco use 03/13/2021 Tobacco screen complete-patient denies ever smoking Z12.31-V76.12 (Z12.31-V76.12) Encounter for screening mammogram for malignant neoplasm of breast Z12.11-V76.51 (Z12.11-V76.51) Encounter for screening for malignant neoplasm of colon Preventative testing not indicated due to age *I reviewed the most recent CDC guidelines regarding Covid-19/Coronavirus with the patient/caregiver/designee 07/06/2021 Appointment: Chivo Bishop WPtel: [address] [place], [place] [id number] ETV 07/06/2021 Patient Education: Patient Medication Summary Completed 07/06/2021 Visit Plan: Video and audio call using [employer] O39.1-568.43 COVID-19 virus RNA test result positive at [...] this medication received new monitor [employer] through [employer]-participant of [employer] - 05/20/2021 Hemoglobin A1C 5.4 stable 10/17/2019 Outlook Fany 7/10-instructed on good daily foot care [...] diabetes mellitus labs to be drawn at [facility] - has appt 06/09/2021 advised to notify office for persistent or worsening symptoms F43.23-309.28 Adjustment disorder with mixed anxiety and depressed mood reviewed previously discussed stress management routine follow up [facility] [place] 03/13/2021 PHQ 9 Score 4 Sertraline 200mg daily 04/01/2021 Functional Assessment independent with ADLs R63.0-783.0 Anorexia symptoms persistent advised to continue to try small, more frequent food intake, discussed limiting carbonated beverages as this may make her feel full taking away appetite discussed benefits of [employer] not using note weight has [...] new appt for pap in June 2020-[facility]-reports pap negative Z01.89-V72.85 Encounter for screening for tobacco use 03/13/2021 Tobacco screen complete-patient denies ever smoking Z12.31-V76.12 (Z12.31-V76.12) Encounter for screening mammogram for malignant neoplasm of breast Z12.11-V76.51 (Z12.11-V76.51) Encounter for screening for malignant neoplasm of colon Preventative testing not indicated due to age *I reviewed the most recent CDC guidelines regarding Covid-19/Coronavirus with the patient/caregiver/designee 06/10/2021 Appointment: Chivo Bishop WPtel: [address] [place], [place] [id number] PHTV 06/10/2021 Patient Education: Patient Medication Summary Completed 06/10/2021 Patient Education: Diabetes Completed 06/10/2021 Visit Plan: Video and audio call using [employer] J06.9-559.9 Upper respiratory infection prescription for sudafed sent [...] - 05/20/2021 Hemoglobin A1C 5.4 stable 10/17/2019 Outlook Fany 7/10-instructed on good daily foot care [...] diabetes mellitus labs to be drawn at [facility] - has appt 06/09/2021 advised to notify office for persistent or worsening symptoms F43.23-309.28 Adjustment disorder with mixed anxiety and depressed mood reviewed previously discussed stress management routine follow up [facility] [place] 03/13/2021 PHQ 9 Score 4 Sertraline 200mg daily 04/01/2021 Functional Assessment independent with ADLs R63.0-783.0 Anorexia symptoms persistent advised to continue to try small, more frequent food intake, discussed limiting carbonated beverages as this may make her feel full taking away appetite discussed benefits of [employer] not using note weight has remained stable over the past couple months-will continue to monitor I10-401.9 Essential (primary) hypertension I11.0-402.91 Hypertensive heart disease with heart failure cont hctz and lisinipril 04/01/2021 HTN assessment complete discussed lifestyle modification including weight loss and limiting sodium intake 05/20/2021 GFR >60 Anita lab didn't provide exact number 05/14/2020 EKG [...] new appt for pap in June 2020-[facility]-reports pap negative-records requested Z01.89-V72.85 Encounter for screening for tobacco use 03/13/2021 Tobacco screen complete-patient denies ever smoking Z12.31-V76.12 (Z12.31-V76.12) Encounter for screening mammogram for malignant neoplasm of breast Z12.11-V76.51 (Z12.11-V76.51) Encounter for screening for malignant neoplasm of colon Preventative testing not indicated due to age *I reviewed the most recent CDC guidelines regarding Covid-19/Coronavirus with the patient/caregiver/designee 06/02/2021 Appointment: Anna Culver WPtel: [address] [place], [place] [phone] ET 06/02/2021 Patient Education: Patient Medication Summary [...] diabetes mellitus labs to be drawn at [facility] referred to neurology previously - has upcoming visit 05/24/21 advised to notify office for persistent or worsening symptoms F43.23-309.28 Adjustment disorder with mixed anxiety and depressed mood discussed stress management routine follow up [facility] 03/13/2021 PHQ 9 Score 4 Sertraline 200mg daily 04/01/2021 Functional Assessment independent with ADLs R63.0-783.0 Anorexia symptoms persistent advised to continue to try small, more frequent food intake, discussed limiting carbonated beverages as this may make her feel full taking away appetite discussed benefits of [employer] Breakfast not using note weight has remained stable over the past couple months-will continue to monitor labs performed recently at [facility]- results requested 05/20/21 E11.42-250.60 Type 2 [...] this medication received new monitor Pablo through [employer]-participant of [employer] - 01/29/2021 Hgb [...] will order labs to be drawn at [facility] E78.5-272.4 Hyperlipidemia, unspecified 01/29/2021 alkaline phos 228 [...] new appt for pap in June 2020-[facility]-reports pap negative-records requested Z01.89-V72.85 Encounter for screening for tobacco use 03/13/2021 Tobacco screen complete-patient denies ever smoking Z12.31-V76.12 (Z12.31-V76.12) Encounter for screening mammogram for malignant neoplasm of breast Z12.11-V76.51 (Z12.11-V76.51) Encounter for screening for malignant neoplasm of colon Preventative testing not indicated due to age *I reviewed the most recent CDC guidelines regarding Covid-19/Coronavirus with the patient/caregiver/designee 05/20/2021 Appointment: Chivo Bishop WPtel: [address] [place] [address] [place] ETV 05/20/2021 Patient Education: Patient Medication Summary Completed 05/20/2021 Patient Education: Diabetes Completed 05/20/2021 Patient Education: Dizziness Completed 05/20/2021 Appointment: Anna Culver WPtel: [phone] [address] [place] ETV 04/28/2021 Patient Education: Patient Medication Summary Completed 04/28/2021 Patient Education: Diabetes Completed 04/28/2021 Care Plan: Domiciliary/Facility Communication Ordered 04/28/2021 Visit Plan: F43.23-309.28 Adjust ment disorder with mixed anxiety and depressed mood patient having increased stress leading to teeth clenching and zoning out for short periods discussed stress management routine follow up [facility] 03/13/2021 PHQ 9 Score 4 Sertraline increased to 200mg daily 04/01/2021 Functional Assessment independent with ADLs R63.0-783.0 Anorexia symptoms persistent advised to continue to try small, more frequent food intake, discussed limiting carbonated beverages as this may make her feel full taking away appetite discussed benefits of [employer] Breakfast not using note weight has [...] this medication received new monitor Pablo through [employer]-participant of [employer] on demand - 01/29/2021 Hgb A1C 5.3 [...] new appt for pap in June 2020-[facility]-reports pap negative-records requested Z01.89-V72.85 Encounter for screening for tobacco use 03/13/2021 Tobacco screen complete-patient denies ever smoking Z12.31-V76.12 (Z12.31-V76.12) Encounter for screening mammogram for malignant neoplasm of breast Z12.11-V76.51 (Z12.11-V76.51) Encounter for screening for malignant neoplasm of colon Preventative testing not indicated due to age *I reviewed the most recent CDC guidelines regarding Covid-19/Coronavirus with the patient/caregiver/designee 04/15/2021 Appointment: Chivo Bishop WPtel: [address] [place], [place] [phone] ETV 04/15/2021 Patient Education: Patient Medication Summary Completed 04/15/2021 Visit Plan: R63.0-783.0 Anorexia symptoms persistent advised to continue to try small, more frequent food intake, discussed limiting carbonated beverages as this may make her feel full taking away appetite discussed benefits of [employer] Breakfast not using note weight has [...] anxiety and depressed mood routine follow up [facility] 03/13/2021 PHQ 9 Score 4 Sertraline increased [...] new appt for pap in June 2020-[facility]-reports pap negative-records requested Z01.89-V72.85 Encounter for screening for tobacco use 03/13/2021 Tobacco screen complete-patient denies ever smoking Z12.31-V76.12 (Z12.31-V76.12) Encounter for screening mammogram for malignant neoplasm of breast Z12.11-V76.51 (Z12.11-V76.51) Encounter for screening for malignant neoplasm of colon Preventative testing not indicated due to age *I reviewed the most recent CDC guidelines regarding Covid-19/Coronavirus with the patient/caregiver/designee 04/01/2021 Appointment: Anna Culver WPtel: [address] [place] [address] E410 04/01/2021 Patient Education: Patient Medication Summary Completed 04/01/2021 Patient Education: Diabetes Completed 04/01/2021 Visit Plan: Video and audio call using [employer] T14.8XXA-489.2 Blister 3 wounds left 3rd digit secondary [...] full taking away appetite discussed benefits of [employer] Breakfast. note weight has remained stable [...] received new monitor Biotel through [employer]-participant of [employer] on demand - 01/29/2021 Hgb A1C 5.3 10/17/2019 Outlook Fany 7/10-instructed on good daily foot care [...] anxiety and depressed mood routine follow up [facility] 03/13/2021 PHQ 9 Score 4 Sertraline increased [...] new appt for pap in June 2020-[facility]-reports pap negative-records requested Z01.89-V72.85 Encounter for screening for tobacco use 03/13/2021 Tobacco screen complete-patient denies ever smoking Z12.31-V76.12 (Z12.31-V76.12) Encounter for screening mammogram for malignant neoplasm of breast Z12.11-V76.51 (Z12.11-V76.51) Encounter for screening for malignant neoplasm of colon Preventative testing not indicated due to age *I reviewed the most recent CDC guidelines regarding Covid-19/Coronavirus with the patient/caregiver/designee 03/24/2021 Appointment: Anna Culver WPtel: [address] [place], [place] [phone] ETV 03/24/2021 Patient Education: Diabetes Completed 03/24/2021 Patient Education: Patient Medication Summary Completed 03/24/2021 Visit Plan: Video and audio call using Moonfruit3.0-783.0 Anorexia symptoms improving, but persist in the morning encouraged to keep food diary for a couple weeks, will review at next visit advised to continue to try small, more frequent food intake, discussed limiting carbonated beverages as this may make her feel full taking away appetite discussed benefits of [employer] Breakfast. note weight has remained stable [...] anxiety and depressed mood routine follow up [facility] 03/13/2021 PHQ 9 Score 4 Sertraline increased [...] new appt for pap in June 2020-[facility]-reports pap negative-records requested Z01.89-V72.85 Encounter for screening for tobacco use 03/13/2021 Tobacco screen complete-patient denies ever smoking Z12.31-V76.12 (Z12.31-V76.12) Encounter for screening mammogram for malignant neoplasm of breast Z12.11-V76.51 (Z12.11-V76.51) Encounter for screening for malignant neoplasm of colon Preventative testing not indicated due to age *I reviewed the most recent CDC guidelines regarding Covid-19/Coronavirus with the patient/caregiver/designee 03/13/2021 Appointment: Anna Culver WPtel: [address] [place], [place] [phone] ETV 03/13/2021 Patient Education: Patient Medication Summary [...] full taking away appetite discussed benefits of [employer] Instant Breakfast. note weight has remained stable [...] anxiety and depressed mood routine follow up [facility] 08/19/2020 PHQ 9 Scoere 1, admits to [...] new appt for pap in June 2020-[facility]-reports pap negative-records requested Z01.89-V72.85 Encounter for screening for tobacco use 12/31/2020 Tobacco screen complete-patient denies ever smoking Z12.31-V76.12 (Z12.31-V76.12) Encounter for screening mammogram for malignant neoplasm of breast Z12.11-V76.51 (Z12.11-V76.51) Encounter for screening for malignant neoplasm of colon Preventative testing not indicated due to age *I reviewed the most recent CDC guidelines regarding Covid-19/Coronavirus with the patient/caregiver/designee 02/11/2021 Appointment: Anna Culver WPtel: [address] [place] [address] E410 02/11/2021 Patient Education: Patient Medication Summary Completed 02/11/2021 Patient Education: Obesity Completed 02/11/2021 Patient Education: Diabetes Completed 02/11/2021 Appointment: Chivo Bishop WPtel: [address] [place], [place] [phone] E410 01/29/2021 Patient Education: Patient Medication Summary [...] full taking away appetite discussed benefits of [employer] Instant Breakfast. note weight remain relatively stable over the past couple months-will continue to monitor E11.42-250.60 Type 2 diabetes mellitus with peripheral neuropathy ranging 103-126, Metformin 1000mg BID - received new monitor Biotel through [employer]-participant of [employer] on demand - 10/29/2020 hgb A1C 5.6 10/17/2019 Outlook Fany 10-instructed on good daily foot care [...] anxiety and depressed mood routine follow up [facility] 08/19/2020 PHQ 9 Scoere 1, admits to [...] new appt for pap in June 2020-[facility]-reports pap negative-records requested Z01.89-V72.85 Encounter for screening for tobacco use 12/31/2020 Tobacco screen complete-patient denies ever smoking Z12.31-V76.12 (Z12.31-V76.12) Encounter for screening mammogram for malignant neoplasm of breast Z12.11-V76.51 (Z12.11-V76.51) Encounter for screening for malignant neoplasm of colon Preventative testing not indicated due to age *I reviewed the most recent CDC guidelines regarding Covid-19/Coronavirus with the patient/caregiver/designee 01/13/2021 Appointment: Anna Culver WPtel: [phone] [address] ETV 01/13/2021 Patient Education: Patient Medication [...] full taking away appetite discussed benefits of [employer] Instant Breakfast. note weight remain relatively stable [...] demand - 10/29/2020 hgb A1C 5.6 10/17/2019 Outlook Fany 7/10-instructed on good daily foot care [...] anxiety and depressed mood routine follow up [facility] 08/19/2020 PHQ 9 Scoere 1, admits to [...] new appt for pap in June 2020-[facility]-reports pap negative-records requested Z01.89-V72.85 Encounter for screening for tobacco use Tobacco screen complete-patient denies ever smoking Z12.31-V76.12 (Z12.31-V76.12) Encounter for screening mammogram for malignant neoplasm of breast Z12.11-V76.51 (Z12.11-V76.51) Encounter for screening for malignant neoplasm of colon Preventative testing not indicated due to age *I reviewed the most recent CDC guidelines regarding Covid-19/Coronavirus with the patient/caregiver/designee 12/17/2020 Appointment: Anna Culver WPtel: [address] [place], [place] [phone] E410 12/17/2020 Patient Education: Patient Medication Summary Completed 12/17/2020 Patient Education: Hypertension Completed 12/17/2020 Patient Education: Diabetes Completed 12/17/2020 Visit Plan: patient with access to I phone able to participate in visual and audio telehealth visit T23.191D-V58.89 Superficial burn of multiple sites of right hand, subsequent encounter Reviewed ER notes from [facility] 11/26/20 Superfical burn among dorsal side [...] BID - received new monitor Biotel through [employer]-participant of [employer] on demand - 10/29/2020 hgb A1C 5.6 10/17/2019 Outlook Fany 7/10-instructed on good daily foot care [...] anxiety and depressed mood routine follow up [facility] 08/19/2020 PHQ 9 Scoere 1, admits to [...] to right wrist- Dr. Tee Shahid, hand global mobility specialist, outpatient surgery 10/09/2019 for arthoscopic exam [...] new appt for pap in June 2020-[facility]-reports pap negative-records requested Z01.89-V72.85 Encounter for screening [...] above topics. 11/28/2020 Appointment: Chivo Bishop WPtel: [address] [place], [place] [phone] ET 11/28/2020 Patient Education: Patient Medication Summary [...] anxiety and depressed mood routine follow up [facility] 08/19/2020 PHQ 9 Scoere 1, admits to [...] to right wrist- Dr. Tee Shahid, hand global mobility specialist, outpatient surgery 10/09/2019 for arthoscopic exam [...] new appt for pap in June 2020-[facility]-reports pap negative-records requested Z01.89-V72.85 Encounter for screening [...] topics. 11/24/2020 Appointment: Anna Culver WPtel: [phone] ETV 11/24/2020 Patient Education: Patient Medication Summary Completed 11/24/2020 Patient Education: Diabetes Completed 11/24/2020 Patient Education: Hypertension Completed 11/24/2020 Appointment: Anna Culver WPtel: [phone] E410 10/29/2020 Patient Education: Patient Medication [...] right wrist-record requested Dr. Tee Shahid, hand global mobility specialist, outpatient surgery planned 10/09/2019 E11.42-250.60 Type 2 diabetes mellitus with peripheral neuropathy testing BID and PRN if feeling symptomatic 89-105, patient reports feeling symptomatic for BS >100, RBS 103 Metformin 1000mg BID - received new monitor Biotel through [employer]-participant of [employer] -will send all diabetic supplies to patient 04/14/2020 hemoglobin 5.6 10/17/2019 Hemoglobin A1C 6.0 07/04/2019 Hgb A1C 5.6 10/17/2019 Outlook Fany 04/11-instructed on good daily foot care [...] anxiety and depressed mood routine follow up [facility] 08/19/2020 PHQ 9 Scoere 1, admits to [...] new appt for pap in June 2020-[facility]-reports pap negative-records requested Z01.89-V72.85 Encounter for screening [...] above topics. 09/24/2020 Appointment: Anna Culver WPtel: [address] [place] [address] E410 09/24/2020 Patient Education: Patient Medication Summary Completed 09/24/2020 Patient Education: Obesity Completed 09/24/2020 Visit Plan: M25.531-719.43 Right wrist pain routine follow up with Dr Watson-orthopedics last appt 07/14/2020-record requested quit outpatient PT as didn't feel it was helpful MRI with contrast per orthopedics completed 06/30/2020- per patiet revealed torn ligament to right wrist-record requested in process of being referred to hand global mobility specialist-will send information when available E11.42-250.60 Type [...] A1C 6.0 07/04/2019 Hgb A1C 5.6 10/17/2019 Outlook Fany 04/11-instructed on good daily foot care [...] anxiety and depressed mood routine follow up [facility] 08/19/2020 PHQ 9 Scoere 1, admits to [...] new appt for pap in June 2020-[facility]-reports pap negative-records requested Z01.89-V72.85 Encounter for screening [...] above topics. 08/26/2020 Appointment: Anna Culver WPtel: [address] [place], [place] [phone] ETV 08/26/2020 Patient Education: Patient Medication Summary [...] in process of being referred to hand global mobility specialist-will send information when available E11.42-250.60 Type 2 diabetes mellitus with peripheral neuropathy testing BID and PRN if feeling symptomatic 125-132 patient reports feeling symptomatic for BS >100, Metformin increased to 1000mg BID received new monitor Biotel through [employer]-participant of [employer] on demand -will send all diabetic supplies to patient 04/14/2020 hemoglobin 5.6 10/17/2019 Hemoglobin A1C 6.0 07/04/2019 Hgb A1C 5.6 10/17/2019 [employer] Soares 04/11-instructed on good daily foot care [...] anxiety and depressed mood routine follow up [facility] 08/19/2020 PHQ 9 Scoere 1, admits to [...] new appt for pap in June 2020-[facility]-reports pap negative-records requested Z01.89-V72.85 Encounter for screening [...] above topics. 08/19/2020 Appointment: Anna Culver WPtel: [address] [place], [place] [id number] ETV 08/19/2020 Patient Education: Patient Medication Summary [...] remain elevated received new monitor Biotel through [employer]-participant of [employer] on demand -will send all diabetic supplies [...] anxiety and depressed mood routine follow up [facility] E03.9-244.9 Hypothyroidism, unspecified cont levothyroxine E78.5-272.4 Hyperlipidemia, [...] new appt for pap in June 2020-[facility]-reports pap negative-records requested Z01.89-V72.85 Encounter for screening [...] above topics. 07/22/2020 Appointment: Anna Culver WPtel: [address] [place], [place] [phone] [place] ETV 07/22/2020 Patient Education: Patient Medication [...] 500mg BID received new monitor Biotel through [employer]-participant of [employer] on demand -will send all diabetic supplies to patient 04/14/2020 hemoglobin 5.6 10/17/2019 Hemoglobin A1C 6.0 07/04/2019 Hgb A1C 5.6 10/17/2019 [employer] Soares 04/11-instructed on good daily foot care [...] anxiety and depressed mood routine follow up [facility] E03.9-244.9 Hypothyroidism, unspecified cont levothyroxine E78.5-272.4 Hyperlipidemia, [...] new appt for pap in June 2020-[facility]-reports pap negative-records requested Z01.89-V72.85 Encounter for screening [...] topics. 07/08/2020 Appointment: Anna Culver WPtel: [phone] [address] [place]TV 07/08/2020 Patient Education: Patient Medication Summary Completed 07/08/2020 Patient Education: Diabetes Completed 07/08/2020 Patient Education: Hypertension Completed 07/08/2020 Appointment: Gianna Birmingham: [address] [facility] [address] [id number] [place] ECHO 07/02/2020 Visit Plan: M25.531-719.43 Right [...] anxiety and depressed mood routine follow up [facility] labs ordered results pending E03.9-244.9 Hypothyroidism, unspecified [...] new appt for pap in June 2020-[facility]-reports pap negative-records requested Z01.89-V72.85 Encounter for screening [...] above topics. 06/11/2020 Appointment: Anna Culver WPtel: [address] [place] [address] E452 06/11/2020 Patient Education: Patient Medication Summary [...] anxiety and depressed mood routine follow up [facility] E03.9-244.9 Hypothyroidism, unspecified cont levothyroxine N39.46-788.33 Mixed [...] above topics. 05/14/2020 Appointment: Anna Culver WPtel: [address] [place], [place] [phone] E452 05/14/2020 Patient Education: Patient Medication Summary [...] A1C 6.0 07/04/2019 Hgb A1C 5.6 10/17/2019 Outlook Fany 04/11-instructed on good daily foot care [...] anxiety and depressed mood routine follow up [facility] E03.9-244.9 Hypothyroidism, unspecified cont levothyroxine N39.46-788.33 Mixed [...] above topics. 04/17/2020 Appointment: Anna Culver WPtel: [address] [place] [address] E452 04/17/2020 Patient Education: Patient Medication Summary Completed 04/17/2020 Patient Education: Hypertension Completed 04/17/2020 Patient Education: Diabetes Completed 04/17/2020 Patient Education: Patient Medication Summary Completed 04/13/2020 Visit Plan: E11.42-250.60 Type 2 diabetes mellitus with peripheral neuropathy testing daily, at varied times range 76-153, elevated BS was in the evening, isolated incident usually stays under 134 patient reports need to send BS results to [employer] for review 10/17/2019 Hemoglobin A1C 6.0 07/04/2019 [...] anxiety and depressed mood routine follow up [facility] E03.9-244.9 Hypothyroidism, unspecified cont levothyroxine N39.46-788.33 Mixed [...] above topics. 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 02/14/2020 Appointment: Anna Culver WPtel: [address] [place], [place] [phone] 02/14/2020 Patient Education: Patient Medication Summary Completed 02/14/2020 Patient Education: Hypertension Completed 02/14/2020 Patient Education: Diabetes Completed 02/14/2020 Visit Plan: patient with I phone able to participate in visual and audio telehealth visit S96-269.2 Syncope and collapse denies any recent episodes advise to check BS when feeling light headed E11.42-250.60 Type 2 diabetes mellitus with peripheral neuropathy range 89-120, tries to keep BS around 90-varied times of the day 10/17/2019 Hemoglobin A1C 6.0 07/04/2019 Hgb A1C 5.6 10/17/2019 Outlook Fany 7/10-instructed on good daily foot care [...] anxiety and depressed mood routine follow up [facility] E03.9-244.9 Hypothyroidism, unspecified cont levothyroxine N39.46-788.33 Mixed incontinence use of incontinence supplies Z68.43-V85.43 Adult BMI 50.0-59.9 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 01/24/2020 Appointment: Anna Culver WPtel: [phone] [phone] E452 01/24/2020 Patient Education: Hypertension Completed 01/24/2020 Patient Education: Diabetes Completed 01/24/2020 Patient Education: Patient Medication Summary Completed 01/24/2020 Visit Plan: patient with I phone able to participate in visual and audio telehealth visit H10.029-372.03 [place] eye ophthalmic ointment received today advised to [...] A1C 6.0 07/04/2019 Hgb A1C 5.6 10/17/2019 Outlook Fany 7/10-instructed on good daily foot care [...] anxiety and depressed mood routine follow up [facility] Z68.43-V85.43 Adult BMI 50.0-59.9 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 Advised to avoid soda and sweet tea-discuss Ice, carbonated drink as a substitute 01/01/2020 Appointment: Anna Culver WPtel: [address] [place] [address] E452 01/01/2020 Patient Education: Patient Medication Summary [...] A1C 6.0 07/04/2019 Hgb A1C 5.6 10/17/2019 Outlook Fany 7/10-instructed on good daily foot care [...] disorder with mixed anxiety and depressed mood [facility] Z68.43-V85.43 Adult BMI 50.0-59.9 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 Gonzales, podiatry-wanting diabetic shoes-advised to have special education professional send something to office for signature-pt to have special education professional call office for instruction to send paperwork ophthalmology referral initiated labs drawn, results pending G47.33-327.23 Obstructive sleep apnea (adult) (pediatric) J45.909-493.90 Asthma Recent ED visit for difficulty breathing-records requested continue inhalers and nebulizer wears cpap every night, believes that is helpful 10/22/2019 Dr. Garcia, pulmonology for chronic sleep apnea and asthma F43.23309.28 Adjustment disorder with mixed anxiety and depressed mood [facility] has first appt today 10/17/2019 Appointment: Anna Culver WPtel: [address] [place] [address] E452 10/17/2019 Patient Education: Patient Medication Summary Completed 10/17/2019 Patient Education: Obesity Completed 10/17/2019 Patient Education: Patient Medication Summary Completed 09/29/2019 Appointment: Anna Culver WPtel: [phone] E452 09/19/2019 Patient Education: Patient Medication Summary Completed 09/19/2019 Patient Education: Hypertension Completed 09/19/2019 Patient Education: Diabetes Completed 09/19/2019 Patient Education: Patient Medication Summary Completed 09/07/2019 Patient Education: Patient Medication Summary Completed 09/04/2019 Care Plan: RENAL FUNCTION PANEL LOINC : [id number] Pending 07/05/2019 Care Plan: DME Ordered 07/05/2019 [...] with pt Saw eye Dr Hawkins in [facility] , looking for a dentist N18.9-585.9 [...] 07/04/2019 Appointment: Sudha Hernadez WPtel: [address] [facility] [id number] E452 07/04/2019 Patient Education: Patient Medication Summary Completed 07/04/2019 Appointment: Sudha Hernadez WPtel: [address] [facility] [id number] 06/21/2019 Patient Education: Patient Medication Summary Completed 06/21/2019 Care Plan: URINALYSIS AUTO W/SCOPE LOINC : 01020-4 Pending 06/21/2019 Appointment: Charlene Oropeza WPtel: [address] [facility] [id number] [id number] 05/24/2019 Patient Education: Patient Medication Summary Completed [...] but will let this go for today J45.497-159.72 Unspecified asthma, uncomplicated CXR, Ventolin rescue inhaler, Yon 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 Z23-V03.9 Encounter for immunization PPSV23 and Td offered today, says she had PPSV23 already, chart updated Td given today Z12.4-V76.2 Encounter for screening for malignant neoplasm of cervix Offered Outside Physical Damage Appraiser referral for cervical CA screening - and referred today Z79.899-Q58.69 Other snf (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 PDMP reviewed last fill on 03/01/19 gabapentin 300 mg #90 Okay for refill today 04/25/2019 Appointment: Charlene Oropeza WPtel: [facility]1 [facility] [address] [id number] 04/25/2019 Patient Education: Patient Medication Summary Completed 04/25/2019 Patient Education: Asthma Completed 04/25/2019 Patient Education: Hypertension Completed 04/25/2019 Patient Education: Obesity Completed 04/25/2019 Patient Education: Diabetes Completed 04/25/2019 Patient Education: Patient Medication Summary Completed 04/25/2019 Care Plan: Overnight Pulse ox Ordered 04/25/2019 Visit Plan: J45.909-007.90 Unspe cified asthma, uncomplicated Diagnosed at [facility] on 03/21/19. No medications Rx'd. Using [...] to [facility] at [address] [place] [address], p [phone], Z68.43-V85.43 Body mass index (BMI) 50-59.9 , [...] for LTL. 03/28/2019 Appointment: Rasta Palafox WPtel: [address] [facility] [address] [id number] 03/28/2019 Patient Education: Patient Medication Summary Completed 03/28/2019 Patient Education: Asthma Completed 03/28/2019 Care Plan: Cardiology Referral SNOMED-CT : [id number] Pending 03/28/2019 Visit Plan: R06.81-786.03 Apnea, not elsewhere classified Increase in awake apnea. Discussed could also have a neurological &/or psychiatric etiology, but will start with Pulmonology POC: 02/08/19- referred to [facility] at [address] [place] [address], p [phone], Z68.43-V85.43 Body mass index (BMI) 50-59.9 , adult 18 lb weight gain since November. Discussed could be contributing to, but is not causing awake apnea events. 02/14/2019 Appointment: Daltonziggysang Rasta WPtel: 1900 [facility] [address] [id number] 02/14/2019 Patient Education: Patient Medication Summary [...] probably get sentenced to 6-8 yrs in skilled nursing. I'm going to stand right beside him no matter what 11/29/18: just release from 30+ days in [facility], released early from a 60 day sentence. [...] [06/14/2018 - 08/12/2018] POC: being managed by [facility] BAUDILIO Dowling Seeing counselor at [facility] also R51-784.0 Headache 09/21/18: ambulance admission to [facility]. pt stated she had been out [...] R06.2-786.07 Wheezing 01/31/2019 Appointment: Rasta Palafox WPtel: [facility]8 [id number] E452 01/31/2019 Patient Education: Patient Medication [...] of the current POC Labs drawn per [facility] Protocol to assess current status & [...] 05/2918: TSH- 2.190 POC: FT4 drawn per [facility] Protocol R94.31-794.31 Abnormal electrocardiogram [ECG] [EKG] [...] probably get sentenced to 6-8 yrs in skilled nursing. I'm going to stand right beside him no matter what 11/29/18: just release from 30+ days in [facility], released early from a 60 day sentence. [...] [06/14/2018 - 08/12/2018] POC: being managed by [facility] BAUDILIO Dowling Seeing counselor at [facility] also R51-884.0 Headache 09/21/18: ambulance admission to [facility]. pt stated she had been out [...] resolved 12/27/2018 Appointment: Rasta Palafox WPtel: [address] [facility] [address] [id number] 12/27/2018 Patient Education: Headaches Completed 12/27/2018 [...] to cardiology when the pt moves into [place] and has transportation F43.23-309.28 Adjustment disorder with [...] probably get sentenced to 6-8 yrs in skilled nursing. I'm going to stand right beside him no matter what 11/29/18: just roko5uft from 30+ daiys in [facility], released early from a 60 day sentence. buspirone 7.5 mg tablet 1 Tablet(s) PO BID 30 days Refills: 1 Qty: 60 [06/14/2018 - 08/12/2018] : will evaluate for increase at next visit Prozac 10 mg capsule 1 Capsule(s) PO daily 30 days Refills: 1 Qty: 30 [06/14/2018 - 08/12/2018] POC: being managed by [facility] BAUDILIO Dowling Seeing counselor at [facility] also R51-784.0 Headache 09/21/18: ambulance admission to [facility]. pt stated she had been out [...] resolved R51-784.0 Headache 09/21/18: ambulance admission to [facility]. pt stated she had been out [...] probably get sentenced to 6-8 yrs in skilled nursing. I'm going to stand right beside him no matter what buspirone 7.5 mg tablet 1 Tablet(s) PO BID 30 days Refills: 1 Qty: 60 [06/14/2018 - 08/12/2018] : will evaluate for increase at next visit Prozac 10 mg capsule 1 Capsule(s) PO daily 30 days Refills: 1 Qty: 30 [06/14/2018 - 08/12/2018] POC: being managed by [facility] BAUDILIO Dowling Seeing counselor at [facility] also J45.909-493.90 Unspecified asthma, uncomplicated R06.2-786.07 Wheezing [...] of the current POC Labs drawn per [facility] Protocol assess current status & the [...] Will modify POC PRN. Labs drawn per [facility] Protocol assess current status & the effectiveness of the current POC. N18.9-585.9 Chronic kidney disease, unspecified POC: Labs drawn per [facility] Protocol assess current status & the [...] probably get sentenced to 6-8 yrs in skilled nursing. I'm going to stand right beside him no matter what buspirone 7.5 mg tablet 1 Tablet(s) PO BID 30 days Refills: 1 Qty: 60 [06/14/2018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 admits to [...] new appt for pap in June 2020-[facility]-reports pap negative-records requested Z01.89-V72.85 Encounter for screening [...] Assessment and plan reviewed with patient . M25.536-709.17 Right wrist pain routine follow up with [...] remain elevated received new monitor [employer] through [employer]-participant of [employer] on demand -will send all diabetic supplies to patient 04/14/2020 hemoglobin 5.6; 10/17/2019 Hemoglobin A1C 6.0; 07/04/2019 Hgb A1C 5.6 10/17/2019 Incoente Soares 04/11-instructed on good daily foot care [...] anxiety and depressed mood routine follow up [facility] E03.9-244.9 Hypothyroidism, unspecified cont levothyroxine E78.5-272.4 Hyperlipidemia, [...] new appt for pap in June 2020-[facility]-reports pap negative-records requested Z01.89-V72.85 Encounter for screening [...] 500mg BID received new monitor [employer] through [employer]-participant of [employer] -will send all diabetic supplies [...] anxiety and depressed mood routine follow up [facility] E03.9-244.9 Hypothyroidism, unspecified cont levothyroxine E78.5-272.4 Hyperlipidemia, [...] new appt for pap in June 2020-[facility]-reports pap negative-records requested Z01.89-V72.85 Encounter for screening [...] Assessment and plan reviewed with patient . M25.531-365.43 Right wrist pain patient complaining of chronic [...] anxiety and depressed mood routine follow up [facility] labs ordered results pending E03.9-244.9 Hypothyroidism, unspecified [...] new appt for pap in June 2020-[facility]-reports pap negative-records requested Z01.89-V72.85 Encounter for screening [...] Assessment and plan reviewed with patient . M25.531-234.43 Right wrist pain patient complaining of chronic [...] A1C 6.0; 07/04/2019 Hgb A1C 5.6 10/17/2019 [employer] 04/11-instructed on good daily foot care [...] anxiety and depressed mood routine follow up [facility] E03.9-244.9 Hypothyroidism, unspecified cont levothyroxine N39.46-788.33 Mixed [...] A1C 6.0; 07/04/2019 Hgb A1C 5.6 10/17/2019 [employer] F[employer] 04/11-instructed on good daily foot care [...] anxiety and depressed mood routine follow up [facility] E03.9-244.9 Hypothyroidism, unspecified cont levothyroxine N39.46-788.33 Mixed [...] reports need to send BS results to [employer] for review 10/17/2019 Hemoglobin A1C 6.0; 07/04/2019 [...] anxiety and depressed mood routine follow up [facility] E03.9-244.9 Hypothyroidism, unspecified cont levothyroxine N39.46-788.33 Mixed [...] anxiety and depressed mood routine follow up [facility] E03.9-244.9 Hypothyroidism, unspecified cont levothyroxine N39.46-788.33 Mixed incontinence use of incontinence supplies Z68.43-V85.43 Adult BMI 50.0-59.9 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 trying [...] A1C 6.0; 07/04/2019 Hgb A1C 5.6 10/17/2019 Outlook Fany 7/10-instructed on good daily foot care [...] anxiety and depressed mood routine follow up [facility] E03.9-244.9 Hypothyroidism, unspecified cont levothyroxine N39.46-788.33 Mixed incontinence use of incontinence supplies Z68.43-V85.43 Adult BMI 50.0-59.9 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 trying to avoid soda, drinking sparkling flavored pal and occasional Heike Green Tea and honey H10.029-372.03 [place] [facility]-resolved ophthalmic ointment received today advised to [...] in visual and audio telehealth visit H10.029-372.03 [place] eye ophthalmic ointment received today advised to [...] A1C 6.0; 07/04/2019 Hgb A1C 5.6 10/17/2019 Outlook[employer]ril Soares 7/10-instructed on good daily foot care [...] anxiety and depressed mood routine follow up [facility] Z68.43-V85.43 Adult BMI 50.0-59.9 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 Gonzales, podiatry-wanting diabetic shoes-advised to have special education professional send something to office for signature-pt to have special education professional call office for instruction to send paperwork ophthalmology referral initiated labs drawn, results pending G47.33-327.23 Obstructive sleep apnea (adult) (pediatric); J45.909-493.90 Asthma Recent ED visit for difficulty breathing-records requested continue inhalers and nebulizer wears cpap every night, believes that is helpful 10/22/2019 Dr. Garcia, pulmonology for chronic sleep apnea and asthma F43.23-309.28 Adjustment disorder with mixed anxiety and depressed mood [facility] has first appt today 10/17/2019 . 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 Z23-V03.9 Encounter for immunization PPSV23 and Td offered today, says she had PPSV23 already, chart updated Td given today Z12.4-V76.2 Encounter for screening for malignant neoplasm of cervix Offered Outside Physical Damage Appraiser referral for cervical CA screening - and referred today Z79.899-V58.69 Other snf (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 PDMP reviewed last fill on 03/01/19 gabapentin 300 mg #90 Okay for refill today 04/25/2019 . J45.909-493.90 Unspecified asthma, uncomplicated Diagnosed at [facility] on 03/21/19. No medications Rx'd. Using [...] to [facility] at [address] [place] [address], p [phone], Z68.43-V85.43 Body mass index (BMI) 50-59.9 , [...] to [facility] at [address] [place] [address], p [phone], Z68.43-V85.43 Body mass index (BMI) 50-59.9 , [...] 05/2918: TSH- 2.190 POC: FT4 drawn per [facility] Protocol R94.31-794.31 Abnormal electrocardiogram [ECG] [EKG] [...] probably get sentenced to 6-8 yrs in skilled nursing. I'm going to stand right beside him no matter what 11/29/18: just release from 30+ days in [facility], released early from a 60 day sentence. [...] [06/14/2018 - 08/12/2018] POC: being managed by [facility] [place] Seeing counselor at [facility] also R51-784.0 Headache 09/21/18: ambulance admission to [facility]. pt stated she had been out [...] probably get sentenced to 6-8 yrs in skilled nursing. I'm going to stand right beside him no matter what 11/29/18: just release from 30+ days in [facility], released early from a 60 day sentence. [...] [06/14/2018 - 08/12/2018] POC: being managed by [facility] BAUDILIO [place] Seeing counselor at [facility] also R51-784.0 Headache 09/21/18: ambulance admission to [facility]. pt stated she had been out [...] to cardiology when the pt moves into [place] and has transportation F43.23-309.28 Adjustment disorder with [...] probably get sentenced to 6-8 yrs in skilled nursing. I'm going to stand right beside him no matter what 11/29/18: just [id number] from 30+ daiys in [facility], released early from a 60 day sentence. buspirone 7.5 mg tablet; 1 Tablet(s) PO BID; 30 days; Refills: 1; Qty: 60 [06/14/2018 - 08/12/2018]; : will evaluate for increase at next visit Prozac 10 mg capsule; 1 Capsule(s) PO daily; 30 days; Refills: 1; Qty: 30 [06/14/2018 - 08/12/2018] POC: being managed by [facility] [place] Seeing counselor at [facility] also R51-244.0 Headache 09/21/18: ambulance admission to [facility]. pt stated she had been out [...] resolved R51-784.0 Headache 09/21/18: ambulance admission to [facility]. pt stated she had been out [...] probably get sentenced to 6-8 yrs in skilled nursing. I'm going to stand right beside him no matter what buspirone 7.5 mg tablet; 1 Tablet(s) PO BID; 30 days; Refills: 1; Qty: 60 [06/14/2018 - 08/12/2018]; : will evaluate for increase at next visit Prozac 10 mg capsule; 1 Capsule(s) PO daily; 30 days; Refills: 1; Qty: 30 [06/14/2018 - 08/12/2018] POC: being managed by [facility] BAUDILIO Dowling Seeing counselor at [facility] also J45.909-493.90 Unspecified asthma, uncomplicated R06.2-786.07 Wheezing [...] probably get sentenced to 6-8 yrs in skilled nursing. I'm going to stand right beside him no matter what buspirone 7.5 mg tablet; 1 Tablet(s) PO BID; 30 days; Refills: 1; Qty: 60 [06/14/2018 - 08/12/2018]; : will evaluate for increase at next visit Prozac 10 mg capsule; 1 Capsule(s) PO daily; 30 days; Refills: 1; Qty: 30 [06/14/2018 - 08/12/2018] POC: being managed by [facility] BAUDILIO Dowling Seeing counselor at [facility] also J45.909-493.90 Unspecified asthma, uncomplicated R06.2-786.07 Wheezing [...] when sitting, avoid high salt foods. 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 All NSAIDs have a Black Box warning for GI Bleed, CT CHF, stroke & can increase peripheral edema. [...] contact with daughter. Cannot leave [place]. Seeing parlor maid on 08/14/18 Pt's was arrested last Tuesday [...] [06/14/2018 - 08/12/2018] POC: keep psychiatry apt [place], [place] in August 2018 08/09/18: has gotten an apt yet, will call [facility] for an apt tomorrow. I10-401.9 Essential (primary) [...] a Black Box warning for GI Bleed, CT CHF, stroke & can increase peripheral edema. [...] [06/14/2018 - 08/12/2018] POC: keep psychiatry apt [place], [place] in August 2018 I10-401.9 Essential (primary) [...] when sitting, avoid high salt foods. 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 All NSAIDs have a Black Box warning for GI Bleed, CT CHF, stroke & can increase peripheral edema. [...]
== END 2025-04-17 13:52 | disposition home or self-care (01) ==
LOC: LAB 13:53
PROVIDERS: PCP Nurse Practitioner Family; Visit Provider Nurse Practitioner Family
DX: E07.9 Disorder of thyroid, unspecified (principal); E11.9 Type 2 diabetes mellitus without complications; I10 Essential (primary) hypertension
CPT/HCPCS: 36415; 80053; 80061; 84439; 84443; 85025

== ENCOUNTER 2025-05-29 11:46 | Outpatient (OUT) | payer OTHER, SELFPAY ==
[2025-05-29 12:15] LABS: Hematocrit 39.1 % (36.0-48.0); Hemoglobin 12.5 g/dL (12.0-16.0); Immature Granulocytes Abs Auto 0.02 10^3/uL (0.00-0.03); Immature Granulocytes Pct Auto 0.2 % (0.0-0.5); Lymphocytes Absolute Auto 2.1 10^3/uL (1.2-3.8); Mean Corpuscular HGB Conc 32.0 g/dL (29.9-35.2); Mean Corpuscular Hemoglobin 25.9 pg (26.7-34.0); Mean Corpuscular Volume 81.1 fL (81.0-99.0); Platelet Count 355 10^3/uL (150-450); Red Blood Count 4.82 10^6/uL (4.20-5.40); White Blood Count 8.0 10^3/uL (4.0-11.0)
--- OUTSIDE RECORDS SUMMARY | 2025-05-29 12:35 | XMS_ITS | CCD ---
Author Organization [facility] Care Team Providers Care Egg Crater Name Role Phone Ingrid Culver Primary Care Provider [phone] INGRID CULVER Primary Care Unavailable KOLBY ELLIS Attending Unavailable RHONDA, KOLBY Admitting Unavailable RHONDA, KOLBY Admitting Unavailable INGRID CULVER Primary Care Unavailable KOLBY ELLIS Attending Unavailable RHONDA, KOLBY Admitting Unavailable RHONDA, KOLBY Attending Unavailable INGRID CULVER Primary Care Unavailable ROBBIE Kim, GEOVANNI Admitting Unavailable VIANCA BLANCHARD Consulting Unavailable DR DIONICIO BARBOUR Primary Care Unavailable GEOVANNI CUEVAS Attending Unavailable ANDREINA DHILLON Consulting Unavailable GEOVANNI CUEVAS Consulting Unavailable LUISA RANGEL Consulting Unavailable DANDRE Snyder Primary Care Provider DANDRE Snyder Attending Provider [phone] Lizbeth Snyder Attending Unavailable Lizbeth Snyder Primary Care Unavailable Lizbeth Snyder Admitting Unavailable LIZBETH SNYDER Referring Unavailable LIZBETH SNYDER Primary Care Unavailable Ingrid Culver MD Unavailable [phone] Lizbeth Snyder NP Primary Care Provider Claudio AMOS-Lizbeth KING Primary Care Provid er Laurent Ragland MD Unavailable [phone] Yamile Sy Unavailable KATHERINE DOSS Referring Unavailable LIZBETH SNYDER Primary Care Unavailable Ingrid Woodard Primary Care Provider Claudio KING, Lizbeth Fajardo Primary Care Provider Claudio AMOS-BUZZSAW OPERATOR HELPER, Lizbeth Primary Care Provid er Jordonrbachecarolyne FUEL CELL DESIGNER, Lizbeth Primary Care Provider Lizbeth Snyder APRN Attending Provider Laurent Ragland MD Unavailable THONG, LAURENT Fajardo Attending Unavailable YAMILE LOFTON Attending Unavailable THONG, LAURENT Fajardo Attending Unavailable RUS, LAURENT Fajardo Attending Unavailable RUS, LAURENT Fajardo Attending Unavailable RUS, LAURENT Fajardo Referring Unavailable LOWYAMILE Rios Attending Unavailable KATHERINE DOSS Attending Unavailable ROHRBACHER, LIZBETH Referring Unavailable ROHRBACHER, LIZBETH Primary Care Unavailable ROHRBACHER, LIZBETH Referring Unavailable ROHRBACHER, LIZBETH Primary Care Unavailable CHARLENE CARDENAS Attending Unavailable ROHRBACHER, LIZBETH Referring Unavailable ROHRBACHER, LIZBETH Primary Care Unavailable KATHERINE ODSS Attending Unavailable ROHRBACHER, LIZBETH Referring Unavailable ROHRBACHER, LIZBETH Primary Care Unavailable Kolby Ellis Attending Unavailable PalomoIngrid Primary Care Unavailable Ingrid Culver Primary Care Unavailable Kolby Ellis Attending Unavailable Ingrid Culver Primary Care Unavailable Kolby Ellis Attending Unavailable Allergies Allergy Classification Reported Allergen(s) Allergy Type Date of Onset Reaction(s) Facility (20 sources) Loratadine; Translations: [LORATADINE] Drug Allergy 07-20-20 17 Palpitations [place], [place] (20 sources) methylPREDNISolone; Translations: [METHYLPREDNISOLONE] Drug Allergy 04-09-20 19 Hives, Unknown [place], [place] (2 sources) Loratadine; Translations: [Claritin] Drug Allergy 03-20-20 17 [facility] Repository (6 sources) metFORMIN; Translations: [METFORMIN] Drug Allergy 02-14-20 23 Unknown Reaction [facility] Repository (1 source) methylPREDNISolone Drug Allergy [facility] (20 sources) oxyCODONE; Translations: [oxycodone] Drug Allergy 07-22-20 21 Rash, Unknown [place] (1 source) Loratadine Drug Allergy 02-09-20 24 [place] [facility] (1 source) metFORMIN Drug Allergy 02-09-20 [place] [facility] (1 source) methylPREDNISolone Drug Allergy 02-09-20 [place] [facility] (15 sources) Loratadine Allergy to substance 07-20-20 Palpitations, Unknown [facility] (20 sources) metFORMIN Drug Allergy 04-28-20 23 Unknown, Diarrhea [facility] Medications Current Medications Medication Drug Class(es) Dates Sig (Normalized) Sig (Original) acetaminophen 325 mg / HYDROcodone bitartrate 5 mg oral tablet (15 sources) Opioid Agonist HYDROcodone-acet a minophen ([place]) 5-325 MG tablet Active [id number] actuat albuterol 0.09 mg/actuat metered dose inhaler (20 sources) beta2-Adrenergic Agonist Start: 12-02-2023 take 1 puff(s) by inhalation every four to six hours as needed Albuterol Sulfate (Ventolin Hfa) 90 mcg/actuation HFA aerosol inhaler Active 2 PUFF INHALATION EVERY 4-6 HOURS as needed December 02, 2023 1:00am Complies with drug therapy Start: 11-11-2022 End: 05-27-2025 take 2 puff(s) by mouth every four to six hours as needed VENTOLIN HFA 90 mcg/actuation inhaler Indications: Moderate persistent asthma, unspecified whether complicated INHALE 2 PUFFS BY MOUTH EVERY 4 TO 6 HOURS NEEDED 18 g 10 09/04/2024 05/27/2025 Discontinued take 2 puff(s) by in halation every six hours as needed for wheezing albuterol sulfate HFA (VENTOLIN HFA) 108 (90 Base) MCG/ACT inhaler Inhale 2 puffs into the lungs every 6 hours as needed for Wheezing 0 Active Apple Cider Vinegar (15 sources) Apple Cider Vine gar 188 MG capsule Active Apple Cider Vine gar 188 MG capsule Apple Cider Vinegar Active ARIPiprazole 10 mg oral tablet (20 sources) Atypical Antipsychotic Start: 05-19-2022 take 1 tablet by mouth in the morning ARIPiprazole (ABILIFY) 10 mg tablet Take 1 tablet (10 mg total) by mouth in the morning. 05/19/2022 Active atorvastatin 20 mg oral tablet (20 sources) HMG-CoA Reductase Inhibitor Start: 12-09-2022 End: 03-04-2025 atorvastatin (LIPITOR) 20 mg tablet 12/09/2022 Active take 1 tablet by mouth once carlos y atorvastatin (LIPITOR) 20 MG tablet Take 20 mg by mouth daily 0 Active 60 actuat budesonide 0.16 mg/actuat / formoterol fumarate 0.0045 mg/actuat metered dose inhaler (20 sources) Corticosteroid, beta2-Adrenergic Agonist Start: 12-02-2023 End: 12-02-2023 take 1 puff(s) by inhalation once daily as needed Budesonide-Formoterol (Symbicort) 160-4.5 mcg/actuation HFA aerosol inhaler Active 2 PUFF INHALATION Daily as needed December 02, 2023 10:12am Complies with drug therapy Start: 12-10-2022 End: 05-27-2025 take 2 puff(s) by mouth twice daily SYMBICORT 160-4.5 mcg/actuation inhaler Indications: Moderate persistent asthma, unspecified whether complicated INHALE 2 PUFFS BY MOUTH TWICE DAILY 10.2 g 10 10/04/2024 05/27/2025 Discontinued Budesonide-Formoterol Fumara te (SYMBICORT IN) (3 sources) Budesonide-Formo terol Fumarate (SYMBICORT IN) Inhale into the lungs as needed 0 Active busPIRone hydrochloride 15 m g oral tablet (20 sources) Start: End: take 1 tablet by mouth twice daily Buspirone 15 mg tablet Discontinued 15 MG PO Twice daily December 02, 2023 1:00am December 02, 2023 10:13am Start: 07-21-2021 End: 03-28-2024 take 1 tablet by mouth three times daily as needed for anxiety Buspirone 15 mg tablet Active 15 MG PO Three times daily as needed for anxiety 270 90 March 28, 2024 4:36pm Complies with drug therapy Start: 07-21-2021 busPIRone (BUS PAR) 15 mg tablet 4 (four) times a day. 07/21/2021 Active take 1 tablet by mouth once carlos y busPIRone (Buspar) 15 MG tablet Take 15 mg by mouth Daily Active take 1 tablet by tylor twice daily busPIRone (BUSPAR) 10 MG tablet Take 10 mg by mouth 2 times daily 0 Active calcium chloride 0.0014 meq/ ml / potassium chloride 0.004 meq/ml / sodium chloride 0.103 meq/ml / sodium lactate 0.028 meq/ml injectable solution (1 source) Start: 12-23-2020 lactated ringe rs infusion Start: 12-23-2020 lactated ringe rs infusion calcium citrate 1500 mg / cholecalciferol 200 unt oral tablet (15 sources) Vitamin D Calcium Citrate-Vitamin D (Calcium + D) 315-5 MG-MCG tablet Active cephalexin 500 mg oral capsule (1 source) Cephalosporin Antibacterial Start: End: take 1 capsule by mouth three times daily cephALEXin (KEFLEX) 500 MG capsule Take 1 capsule by mouth 3 times daily for 5 days 15 capsule 0 12/22/2020 12/27/2020 Active cetirizine hydrochloride 10 mg oral tablet (20 sources) Histamine-1 Receptor Antagonist Start: End: take 1 tablet by mouth once daily Cetirizine (All Day Allergy (Cetirizine)) 10 mg tablet Active 10 MG PO Daily December 04, 2024 8:51am Complies with drug therapy cholecalciferol 0.05 mg oral capsule (20 sources) Vitamin D Start: End: take 1 capsule by mouth once daily Cholecalciferol (Vitamin D3) (Vitamin D3) 50 mcg (2,000 unit) capsule Active 50 MCG PO Daily March 04, 2025 8:00am Complies with drug therapy Start: 12-02-2023 End: 04-13-2024 take 1 capsule by mouth once daily Cholecalciferol (Vitamin D3) (Vitamin D3) 50 mcg (2,000 unit) capsule Discontinued 2000 UNIT PO Daily December 02, 2023 1:00am April 13, 2024 12:42pm Start: 12-03-2021 take 1 capsule by [facility] in the morning VITAMIN D3 50 mcg (2,000 unit) capsule Take 1 capsule (2,000 Units total) by mouth in the morning. 12/03/2021 Active diclofenac sodium 75 mg delayed release oral tablet (1 source) Nonsteroidal Anti-inflammatory Drug Start: 12-04-2024 take 1 tablet by mouth twice daily as needed Diclofenac Sodium 75 mg tablet,delayed release (DR/EC) Active 75 MG PO Twice daily as needed December 04, 2024 1:00am Complies with drug therapy 0.5 ml dulaglutide 3 mg/ml auto-injector (20 sources) GLP-1 Receptor Agonist Start: 05-08-2025 inject 1.5 mg by subcutaneous injection every week TRULICITY 1.5 mg/0.5 mL pen injector Inject 1.5 mg under the skin once a week. 05/08/2025 Active Start: 01-17-2025 End: 01-17-2025 inject 1.5 mg by subcutaneous injection every week Dulaglutide (Trulicity) 1.5 mg/0.5 mL pen injector Active 0 .ROUTE .COMPLEX January 17, 2025 11:22am INJECT 1.5mg SUBCUTANEOUSLY (UNDER THE SKIN) once a week Complies with drug therapy Start: 06-22-2024 End: 12-04-2024 inject 0.5 mL by subcutaneous injection every week Dulaglutide (Trulicity) 0.75 mg/0.5 mL pen injector Discontinued 0 .ROUTE .COMPLEX 2 November 19, 2024 8:51am December 04, 2024 11:54am INJECT 0.5ml SUBCUTANEOUSLY (UNDER THE SKIN) ONCE A WEEK Start: 06-22-2024 End: 06-22-2024 Trulicity 0.75 MG/0.5ML solu tion auto-injector 06/22/2024 Active famotidine 20 mg oral tablet (20 sources) Histamine-2 Receptor Antagonist Start: 12-09-2022 End: 12-02-2023 famotidine (PEPCID) 20 mg tablet 12/09/2022 Active gabapentin 400 mg oral capsule (20 sources) Anti-epileptic Agent Start: 01-14-2025 End: 04-16-2025 take 1 capsule by mouth in the morning, then take 1 capsule by mouth in the evening, then take 1 capsule by mouth at bedtime gabapentin (Neurontin) 100 MG capsule Indications: Paresthesia Take 1 capsule (100 mg) by mouth in the morning and 1 capsule (100 mg) in the evening and 1 capsule (100 mg) before bedtime. 270 capsule 2 02/14/2025 Active Start: 10-16-2024 take 1 capsule by [facility] once daily Gabapentin 100 mg capsule Active 100 MG PO Daily October 16, 2024 1:00am Complies with drug therapy Start: 09-10-2024 End: 10-10-2024 take 1 capsule by mouth three times daily in the morning gabapentin (Neurontin) 100 MG capsule Indications: Paresthesia Take 1 capsule (100 mg) by mouth in the morning and 1 capsule (100 mg) in the evening and 1 capsule (100 mg) before bedtime. In addition to 400mg TID. 90 capsule 1 09/10/2024 09/10/2024 Discontinued (Reorder) Start: 05-03-2024 Gabapentin 300 mg capsule Active 400 MG PO Three times daily May 03, 2024 8:40am Complies with drug therapy Start: 04-12-2024 End: 02-14-2026 take 1 capsule by mouth in the morning, then take 1 capsule by mouth in the evening, then take 1 capsule by mouth at bedtime gabapentin (Neurontin) 400 MG capsule Indications: Polyneuropathy Take 1 capsule (400 mg) by mouth in the morning and 1 capsule (400 mg) in the evening and 1 capsule (400 mg) before bedtime. 270 capsule 2 02/14/2025 02/14/2026 Active Start: 12-02-2023 End: 05-03-2024 take 1 capsule by mouth three times daily Gabapentin 300 mg capsule Discontinued 300 MG PO Three times daily 90 December 02, 2023 10:57am May 03, 2024 8:40am hydroCHLOROthiazide 25 mg oral tablet (20 sources) Thiazide Diuretic Start: 12-02-2023 End: 03-04-2025 take 1 tablet by mouth once daily Hydrochlorothiazide 25 mg tablet Active 25 MG PO Daily 90 March 04, 2025 8:00am Complies with drug therapy hydroCHLOROthiaz leda (MICROZIDE) 12.5 mg capsule Active hydrOXYzine pamoate 25 mg oral capsule (20 sources) Antihistamine Start: 07-21-2021 End: 12-02-2023 hydrOXYzine (VISTARIL) 25 mg capsule Take 1 capsule (25 mg total) by mouth as needed in the morning and 1 capsule (25 mg total) as needed at noon and 1 capsule (25 mg total) as needed in the evening. 07/21/2021 Active Start: 07-21-2021 take 1 capsule by mo [facility] once daily as needed Hydroxyzine Pamoate 25 mg capsule Active 25 MG PO Daily as needed December 02, 2023 10:13am Complies with drug therapy Start: 07-21-2021 take 1 capsule by mo ut three times daily as needed hydrOXYzine (VISTARIL) 25 mg capsule Take 1 capsule (25 mg total) by mouth 3 (three) times a day as needed. 07/21/2021 Active isopropyl alcohol 0.7 ml/ml medicated pad (20 sources) Start: 05-27-2020 EASY TOUCH ALCOHOL PREP PADS pads, medicated 05/27/2020 Active levothyroxine sodium 0.05 mg oral tablet (20 sources) l-Thyroxine Start: 12-02-2023 End: 03-04-2025 take 1 tablet by mouth once daily Levothyroxine 50 mcg tablet Active 50 MCG PO Daily 90 March 04, 2025 8:00am Complies with drug therapy lidocaine 0.05 mg/mg medicated patch (2 sources) Antiarrhythmic, Amide Local Anesthetic Start: 12-04-2024 apply 1 dose topically once daily Lidocaine (Lidoderm) 5 % adhesive patch,medicated Active 1 PATCH TOPICAL Daily December 04, 2024 1:00am leave on most painful area for up to 12 hrs Complies with drug therapy Start: 12-23-2020 End: 12-23-2020 lidocaine PF 1 % injection 1 mL lisinopril 2.5 mg oral tablet (20 sources) Angiotensin Converting Enzyme Inhibitor Start: 12-02-2023 take 1 tablet by mouth once daily Lisinopril 2.5 mg tablet Active 2.5 MG PO Daily December 02, 2023 1:00am Complies with drug therapy loperamide hydrochloride 2 mg oral capsule (18 sources) Opioid Agonist loperamide (Imodium) 2 MG capsule Active meloxicam 15 mg oral tablet (18 sources) Nonsteroidal Anti-inflammatory Drug meloxicam (Mobic) 15 MG tablet Active End: 12-22-2020 Meloxicam (MOBIC PO) Take [...] mirabegron 50 mg extended release oral tablet (20 sources) beta3-Adrenergic Agonist Start: take 1 tablet by mouth once daily Mirabegron (Myrbetriq) 50 mg tablet extended release 24 hr Active 50 MG PO Daily December 02, 2023 1:00am Complies with drug therapy Start: 11-13-2021 take 1 tablet by tylor th every twenty-four hours in the morning MYRBETRIQ 50 mg tablet extended release 24 hr Take 1 tablet (50 mg total) by mouth in the morning. 11/13/2021 Active montelukast 10 mg oral tablet (20 sources) Leukotriene Receptor Antagonist Start: 12-02-2023 End: 12-12-2024 take 1 tablet by mouth once daily Montelukast 10 mg tablet Active 10 MG PO Daily December 12, 2024 11:31am Complies with drug therapy omeprazole 40 mg delayed release oral capsule (20 sources) Proton Pump Inhibitor Start: 11-23-2022 End: 12-04-2024 take 1 capsule by mouth once daily omeprazole (PriLOSEC) 40 mg capsule Take 1 capsule (40 mg total) by mouth nightly. 11/23/2022 Active omeprazole (PriL OSEC) [address] capsule Active take 1 capsule by mouth once celeste ly omeprazole (PRILOSEC) 10 MG delayed release capsule Take 10 mg by mouth daily 0 Active ondansetron 4 mg oral tablet (15 sources) Serotonin-3 Receptor Antagonist ondansetron (Zofran) 4 MG tablet Active Ozempic, 1 MG/DOSE, 4 MG/3ML solution pen-injector (15 sources) Start: 2022 inject 1 [IU] by subcutaneous injection every week Ozempic, 1 MG/DOSE, 4 MG/3ML solution pen-injector INJECT 1 UNITS DOSE SUBCUTANEOUSLY ON TUESDAY OF EACH WEEK 04/19/2023 Active predniSONE 10 mg oral tablet (11 sources) Start: 2023 predniSONE (Deltasone) 10 MG tablet Indications: Capsulitis of right foot , Sprain of ligament of tarsometatarsal joint of right foot, sequela , Pain in joint of right foot , Difficulty walking 1 tablet twice daily x 7 days; followed by 1 tablet daily as directed until complete 21 tablet 07/20/2024 Active 12 hr pseudoephedrine hydrochloride 120 mg extended release oral tablet (15 sources) alpha-Adrenergic Agonist pseudoephedrine ER (Sudafed-12 Hour) 120 MG 12 hr tablet Active QUEtiapine 100 mg oral tablet (18 sources) Atypical Antipsychotic Start: 2019 End: 2023 take 1 tablet by mouth once daily, then take 0.5 tablet by mouth once daily QUEtiapine (SEROquel) 100 mg tablet nightly. Takes 1 and a 1/2 tablets by mouth Daily 0 06/02/2020 Active Semaglutide (1 source) Start: 2023 inject 1 mg by subcutaneous injection every week Semaglutide Active 1 MG SUBCUT every week 1.875 February 09, 2024 2:21pm sertraline 100 mg oral tablet (20 sources) Serotonin Reuptake Inhibitor Start: 2020 take 1 tablet by mouth in the morning sertraline (ZOLOFT) 100 mg tablet Take 1 tablet (100 mg total) by mouth in the morning. 07/21/2021 Active take 1 tablet by mouth once carlos y sertraline (ZOLOFT) 50 MG tablet Take 50 mg by mouth daily 0 Active SITagliptin 100 mg oral tablet (20 sources) Dipeptidyl Peptidase 4 Inhibitor Start: 03-08-2024 End: 04-13-2024 take 1 tablet by mouth once daily Sitagliptin Phosphate (Januvia) 100 mg tablet Discontinued 0 .ROUTE .COMPLEX 90 March 08, 2024 3:57pm April 13, 2024 12:42pm take 1 tablet by mouth once daily Start: 12-02-2023 End: 12-02-2023 take 1 tablet by mouth twice daily Sitagliptin Phosphate (Januvia) 50 mg tablet Discontinued 50 MG PO Twice daily December 02, 2023 1:00am December 02, 2023 10:11am Start: 09-21-2023 End: 03-04-2025 take 1 tablet by mouth in the morning JANUVIA 100 mg tablet Take 1 tablet (100 mg total) by mouth in the morning. 09/21/2023 Active take 2 tablets by [facility] once daily SITagliptin (Januvia) 50 MG tablet Take 100 mg by mouth Daily Active tiZANidine 2 mg oral tablet (1 source) Central alpha-2 Adrenergic Agonist Start: 05-03-2024 take 1 tablet by mouth every eight hours as needed Tizanidine 2 mg tablet Active 2 MG PO Every 8 hours as needed for muscle spasticity 30 May 03, 2024 12:00am Complies with drug therapy traMADol hydrochloride 50 mg oral tablet (1 [...] tablet Take 50 mg by mouth at bedtime 04/21/2023 Active Turmeric extract (15 sources) Turmeric powder Active Turmeric powder as directed Active Completed/Discontinued Medications Medication Drug Class(es) Dates Sig (Normalized) Sig (Original) mupirocin 0.02 mg/mg topical ointment (2 sources) RNA Synthetase Inhibitor Antibacterial Start: 10-16-2024 End: 04-17-2025 Mupirocin 2 % ointment Discontinued 1 APPLIC TOPICAL Twice daily 16 04October 16, 2024 1:00am April 17, 2025 1:22pm Start: 05-03-2024 End: 04-17-2025 Mupirocin 2 % ointment Disco ntinued 1 APPLIC TOPICAL Twice daily 23 04May 03, 2024 12:00am April 17, 2025 1:22pm nitrofurantoin, macrocrystals 25 mg / nitrofurantoin, monohydrate 75 mg oral capsule (17 sources) Nitrofuran Antibacterial Start: 02-09-2024 End: 02-28-2024 take 1 capsule by mouth twice daily at mealtime Nitrofurantoin Monohyd/M-Cryst (Macrobid) 100 mg capsule Discontinued 100 MG PO Twice daily 07 07February 09, 2024 12:00am February 28, 2024 10:18am must administer with a meal/food take 1 capsule by mo [facility] every twelve hours at mealtime nitrofurantoin, macrocrystal-monohydrate , (Macrobid) 100 MG capsule TAKE 1 CAPSULE BY MOUTH EVERY 12 HOURS WITH FOOD Active 24 hr oxybutynin chloride 10 mg extended release oral tablet (20 sources) Cholinergic Muscarinic Antagonist Start: 12-02-2023 End: 12-02-2023 take 1 tablet by mouth twice daily Oxybutynin Chloride 10 mg tablet extended release 24hr Discontinued 10 MG PO Twice daily December 02, 2023 1:00am December 02, 2023 10:13am Start: 09-23-2022 oxybutynin XL (Ditropan-XL) 10 MG 24 hr tablet 09/23/2022 Active take 1 tablet by tylor twice daily oxybutynin (DITROPAN-XL) 10 MG extended release tablet Take 10 mg by mouth 2 times daily 0 Active Semaglutide (2 sources) Start: 12-02-2023 End: 02-09-2024 inject 1 mg by subcutaneous injection every week Semaglutide (Ozempic) 1 mg/dose (4 mg/3 mL) pen injector Discontinued 1 MG SUBCUT every week December 02, 2023 1:00am February 09, 2024 2:23pm Semaglutide (4 sources) Start: 05-30-2024 End: 06-19-2024 inject 2 mg by subcutaneous injection every week Semaglutide (Ozempic) 2 mg/dose (8 mg/3 mL) pen injector Discontinued 0 .ROUTE .COMPLEX May 30, 2024 10:38am June 19, 2024 10:18am INJECT 2mg SUBCUTANEOUSLY (UNDER THE SKIN) ONCE A WEEK Start: 05-30-2024 End: 05-30-2024 inject 2 mg by subcutaneous injection every week Semaglutide 2 mg/dose (8 mg/3 mL) pen injector Discontinued 2 MG SUBCUT every week 3.75 May 30, 2024 7:51am May 30, 2024 10:38am Start: 04-17-2024 End: 05-30-2024 inject 2 mg by subcutaneous injection every week Semaglutide 2 mg/dose (8 mg/3 mL) pen injector Discontinued 2 MG SUBCUT every week 3.75 April 17, 2024 10:09am May 30, 2024 7:51am Start: 02-09-2024 End: 04-17-2024 inject 2 mg by subcutaneous injection every week Semaglutide 2 mg/dose (8 mg/3 mL) pen injector Discontinued 1 MG SUBCUT every week 1.875 30 February 09, 2024 2:21pm April 17, 2024 10:09am Tirzepatide (1 source) Start: 06-19-2024 End: 06-22-2024 Tirzepatide (Mounjaro) 5 mg/ 0.5 mL pen injector Discontinued 5 MG SUBCUT every week 2 June 19, 2024 12:00am June 22, 2024 9:45am Tirzepatide (Weight Loss) (2 sources) Start: 12-12-2024 End: 04-17-2025 Tirzepatide (Weight Loss) (Z epbound) 2.5 mg/0.5 mL pen injector Discontinued 2.5 MG SUBCUT every week 2 December 12, 2024 11:33am April 17, 2025 1:21pm for 4 weeks Start: 12-04-2024 End: 12-12-2024 Tirzepatide (Weight Loss) (Z epbound) 2.5 mg/0.5 mL pen injector Discontinued 2.5 MG SUBCUT every week 2 December 04, 2024 1:00am December 12, 2024 11:33am for 4 weeks Problems Active Problems Problem Classification Problem Date Documented Date Episodic/Chronic Abdominal pain (4 sources) Unspecified abdominal pain; Translations: [UNSPECIFIED ABDOMINAL PAIN] Onset: 02-13-2023 Episodic Anxiety disorders (20 sources) Anxiety; Translations: [Anxiety disorder, unspecified] Onset: 07-29-2021 12-02-2023 Chronic Asthma (13 sources) Asthma; Translations: [Unspecified asthma, uncomplicated] Onset: 03-06-2024 12-02-2023 Chronic Chronic ulcer of skin (20 sources) [...] 07-29-2021 07-29-2021 Chronic Diabetes mellitus with complications (5 sources) Neuropathy due to diabetes mellitus; Translations: [Diabetes mellitus due to underlying condition with diabetic neuropathy, unspecified] Onset: 05-03-2019 12-02-2023 Chronic Diabetes mellitus without complication (20 sources) Type 2 diabetes mellitus; Translations: [Type 2 diabetes mellitus without complications] Onset: 05-03-2019 12-02-2023 Chronic Disorders of lipid metabolism (3 sources) Hyperlipidemia; Translations: [Hyperlipidemia, unspecified] 12-02-2023 Chronic E Codes: Fall (1 source) Unspecified fall, initial encounter; Translations: [UNSPECIFIED FALL INITIAL ENCOUNTER] Onset: 02-15-2023 Episodic Esophageal disorders (1 source) Gastroesophageal reflux disease; Translations: [Gastro-esophageal reflux disease without esophagitis] 06-28-2024 Chronic Essential hypertension (20 sources) Hypertensive disorder; Translations: [Essential (primary) hypertension] Onset: 05-03-2019 12-02-2023 Chronic Genitourinary symptoms and ill-defined conditions (4 sources) Dysuria; Translations: [Painful micturition, unspecified] Onset: 02-09-2024 12-02-2023 Episodic Menopausal disorders (1 source) Hormone replacement therapy; Translations: [HORMONE REPLACEMENT THERAPY] Onset: 02-15-2023 Episodic Miscellaneous mental health disorders (20 sources) Conversion disorder with seizures or convulsions; 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] Onset: 02-10-2022 02-10-2022 Chronic Mood disorders (20 sources) Depressive disorder; Translations: [Depression] Onset: 07-29-2021 12-02-2023 Chronic Other aftercare (1 source) 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 driver (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; Translations: [OTH [employer]INE [employer] SPECIALIST CURRENT DRUG THERAPY] Onset: 02-15-2023 Episodic Other connective tissue disease (2 sources) Peripheral neuropathic pain; Translations: [Neuralgia and neuritis, unspecified] 02-09-2024 Episodic Other connective tissue disease (1 source) Neuralgia and neuritis, unspecified; Translations: [Mononeuritis of lower limb, unspecified] 02-09-2024 Episodic Other connective tissue disease (4 sources) Pain in toe; Translations: [Pain in right toe(s)] 07-18-2024 Episodic Other connective tissue disease (2 sources) Capsulitis; Translations: [Other enthesopathies, not elsewhere classified] 07-20-2024 Episodic Other lower respiratory disease (1 source) Pleurodynia; Translations: [PLEURODYNIA] Onset: 02-15-2023 Episodic Other nervous system disorders (3 sources) Difficulty walking; Translations: [Difficulty in walking, not elsewhere classified] 07-20-2024 Chronic Other nervous system disorders (2 sources) Polyneuropathy; Translations: [Polyneuropathy, unspecified] 01-16-2025 Chronic Other nervous system disorders (1 source) Postoperative pain ; Translations: [Post-op pain] Episodic Other nervous system disorders (7 sources) Paresthesia; Translations: [Paresthesia of skin] 09-10-2024 Episodic Other non-traumatic joint disorders (2 sources) Pain of joint of right foot; Translations: [Pain in right ankle and joints of right foot] 07-20-2024 Episodic Other nutritional; endocrine; and metabolic disorders (2 sources) Morbid (severe) obesity due to excess calories; Translations: [Morbid (severe) obesity due to excess calories] Onset: 02-06-2024 Chronic Other nutritional; endocrine; and metabolic disorders (20 sources) Morbid obesity; Translations: [Morbid (severe) obesity due to excess calories] Onset: 05-03-2019 02-06-2024 Chronic Other nutritional; endocrine; and metabolic disorders (3 sources) Severe obesity; Translations: [Morbid (severe) obesity due to excess calories] Onset: 05-03-2019 05-03-2019 Chronic Other nutritional; endocrine; and metabolic disorders (1 source) Body mass index 40+ - severely obese; Translations: [Body mass index (BMI) 50.0-59.9, adult] 01-30-2025 Chronic Other screening for suspected conditions (not mental disorders or infectious disease) (2 sources) Patient encounter status; Translations: [Encounter for screening mammogram for malignant neoplasm of breast] Onset: 05-01-2025 05-01-2025 Episodic Other skin disorders (2 sources) Dystrophia unguium; Translations: [Nail dystrophy] 07-18-2024 Episodic Other skin disorders (2 sources) Ingrowing nail; Translations: [Ingrowing nail] 07-18-2024 Episodic Other upper respiratory disease (2 sources) Seasonal allergy; Translations: [Other seasonal allergic rhinitis] 12-02-2023 Chronic Other upper respiratory disease (1 source) Other seasonal allergic rhinitis; Translations: [Allergic rhinitis, cause unspecified] 12-02-2023 Chronic Residual codes; unclassified (6 sources) Obstructive sleep apnea syndrome; Translations: [Obstructive sleep apnea (adult) (pediatric)] 12-02-2023 Chronic Residual codes; unclassified (3 sources) Obstructive sleep apnea (adult) (pediatric); Translations: [Obstructive sleep apnea (adult)(pediatric)] Onset: 08-13-2024 12-02-2023 Chronic Residual codes; unclassified (1 source) Sleep apnea Onset: 08-13-2024 Chronic Screening and history of mental health and substance abuse codes (3 sources) Standardized adult depression screening tool completed ; Translations: [Encounter for screening for depression] Onset: 05-01-2025 02-06-2024 Episodic Sprains and strains (5 sources) Strain of muscle, fascia and tendon of lower back, initial encounter; Translations: [Sprain of ligament of tarsometatarsal joint] Onset: 02-15-2023 07-20-2024 Episodic Superficial injury; contusion (2 sources) Abrasion of forehead; Translations: [Abrasion of other part of head, initial encounter] 05-03-2024 Episodic Thyroid disorders (3 sources) Disorder of thyroid gland; Translations: [Disorder of thyroid, unspecified] 12-02-2023 Episodic Unclassified (1 source) tubal consult Onset: 03-06-2024 Unclassified (1 source) New Patient Onset: 05-17-2025 Unclassified (1 source) Gynecologic Exam Onset: 05-01-2025 Urinary tract infections (3 sources) Urinary tract infectious disease; Translations: [Urinary tract infection, site not specified] 02-09-2024 Episodic Past or Other Problems Problem Classification Problem Date Documented Da te Episodic/Chronic Mood disorders (20 sources) Mood disorders Onset: 09-11-2021 Resolved: 02-06-2024 02-06-2024 Other lower respiratory disease (1 source) Shortness of breath; Translations: [Shortness of breath] Onset: 05-03-2019 Episodic Other lower respiratory disease (20 sources) Dyspnea; Translations: [Shortness of breath] Onset: 05-03-2019 05-03-2019 Episodic Unclassified (20 sources) Onset: 02-06-2024 Resolved: 05-01-2025 02-06-2024 Results Test Name Value Interpretation Reference Range Facility HIGH RISK HPV W/GENOon 05-01 HPV 16 Negative Normal Negative [facility] Comment on above: Performed By: #### H PV #### [facility] ([facility]) [address] [place] [address] VIR HPV 18 Negative Normal Negative [facility] Comment on above: Performed By: #### H PV #### [facility] ([facility]) [address] [place] [address] VIR OTHER HIGH RISK HPV Negative Normal Negative [facility] Comment on above: Result Comment: HPV types 31, 33, 35, 39, 45, 52, 56, 58, 59, 66, and 68 DNA were undetectable. Performed By: #### H PV #### [facility] ([facility]) [address] [place] [address] VIR Consultation/Specialist Note on 03-07-2025 Consultation/Special ist Note [id number] .[id number] [facility] XR Foot - right 3 [facility] Result: 3 views right foot: Weight-bearing: DP, oblique, lateral: 07/20/2024: Unremarkable for acute osseous or joint pathology. Unremarkable for fracture or stress fracture changes. [facility] [employer] [facility] [facility] Radiology Study observation (narrative) [facility] POCT , urineon Beta HCG ( test) Ql (U) Negative [facility] Internal Cook Apprentice Check Completed and Passed Yes [facility] Interpretation and review of laboratory results Normal [facility] Urine Cultureon 02-09-2024 Bacteria identified Cx Nom (U) >100,000 colonies/ml mixed bacterial skin contaminants 2 Days PERFORMED BY: [address] [id number] PATHOLOGIST DRIP PUMPER SHARYN ESPINAL M.D. Normal [facility] Comment on above: Performed By: #### C UU #### [place] [id number] [facility] CT ABD/PELVIS WO CONon 02-13 CT ABD/PELVIS [...] by: ANDREINA DHILLON Date: 2023-02-13 21:36 Normal [facility] CT LSPINE WO CONon 3 CT LSPINE WO CON CT LUMBAR SPINE WITHOUT CONTRAST, 02/13/2023 6:09 PM EDT INDICATION: Pain [...] Kalli RANGEL Date: 2023-02-13 20:09 Normal [facility] XR RIBS RT PA Marco Antonio 3 XR RIBS RT PA CH EXAM: XR RIBS RT PA CH HISTORY: Pain COMPARISON: Chest x-ray 02/18/2020 TECHNIQUE: 5 view study FINDINGS: Right ribs show normal architecture. The right lung is well expanded. No pneumothorax. IMPRESSION: No evidence for acute right rib fracture. Electronically authenticated by: Kalli RANGEL Date: 2023-02-13 20:26 Normal [facility] BADE-KaR-1sn 01-05-2021 SARS-CoV-2,Rapid Not Detected Normal [facility] Comment on above: Result Comment: Rapid NAAT: [...] management decisions. Fact sheet for Healthcare Providers: https://www.fda.gov/media/371508/download Fact sheet for Patients: https://www.fda.gov/media/318007/download Methodology: Isothermal Nucleic Acid Amplification Performed By: #### C OVRB #### [facility] [employer] [address] [place], [place] [id number] Integrated Logistics Support Manager: Hussain Saldivar MD FLUORO FOR SURGICAL PROCEDUR ESon 12-22-2020 FLUORO FOR SURGICAL PROCEDURES Radiology exam is complete. No Radiologist dictation. Please follow up with ordering provider. Final result Normal [facility] Radiology exam is complete. No Radiologist dictation. Please follow up with ordering provider. [facility] Work Phone: HCG Screen, Bloodon 12-23-19 21 HCG Qn Negative Normal NEG [facility] Comment on above: Result Comment: Spec imens with hCG levels near the threshold of the test (25 mIU/mL) may give a negative or indeterminate result. In such cases, another test should be performed with a new specimen in 48-72 hours. If early is suspected clinically in this setting, correlation with quantitative serum b-hCG level is suggested. Performed By: #### H CG #### [facility] [address] [place], [place] [id number] Integrated Logistics Support Manager: Darian Knutson MD HCG, SERUM, QUALITATIVEon hCG Qual Negative NEGATIVE [employer] Phone: Comment on above: Specimens with hCG [...] [Mass/Vol] 89 mg/dL 65 - 105 mg/dL Al [facility]te[facility] Phone: Glucose [Mass/Vol] 99 mg/dL 65 - 105 mg/dL Al [facility] Phone: Operative Reporton Operative Report MR#: [id number] [facility] Pt. Name: Nadir Hendrickson Room #: 0C Discharge Date: Birthdate: 1985 OPERATIVE REPORT DATE OF SURGERY: 10/09/2020 SURGEON: Tee Shahid M.D. PREOPERATIVE DIAGNOSIS: Triangular fibrocartilage complex tear, right wrist. POSTOPERATIVE DIAGNOSIS: Triangular fibrocartilage complex tear, right wrist. PROCEDURE: Arthroscopic examination and debridement of triangular fibrocartilage complex on the right wrist. CONCRETE GUN OPERATOR: Oracio Ibanez M.D. ANESTHESIA: Regional with an [...] A/Tee Shahid M.D. Date Trans: 10/09/2020 11:19 A/mmo [id number] cc: Ingrid Culver C.N.P. [address] [facility] [facility] [place] [address] Normal [facility] POC GLUCOSE LABon 10-09-2020 Glucose [Mass/Vol] 100 mg/dL Normal 70-100 [facility] Comment on above: Performed By: #### [id number] #### [facility] [address] Glucose [Mass/Vol] 111 mg/dL High 70-100 [facility] Comment on above: Performed By: #### 8 [id number] #### [facility] [address] Coding Summary.on 07-07-2020 Coding Summary. CODING DATE: 07/07/2020 [facility] STATUS: Home (Routine DC) PAYOR: Medicaid [...] CphT Date Saved: 07/07/2020 02:39 pm Normal [facility] Consent for Treatmenton Consent for Treatment [id number] .00CD:127 Normal [facility] MRI Wrist Arthrogram Righton 07-04-2020 MRI Wrist [...] MultiHance Contrast amount in ml's: 1 Normal [facility] RAD - Consent to Procedureon 07-04-2020 RAD - Consent to Procedure [id number] 1.00CD:127 Normal [facility] RAD - MRI Screening Formon 1 RAD - MRI Screening Form [id number] .00CD:127 [facility] XR Inj Wrist Arthrogram Dany noonan 07-04-2020 XR Inj Wrist Arthrogram Right Exam [...] Radiation Dose: Ka,r in mGy = 0.7 [facility] Physician Orderon 06-20-2020 Physician Order [id number]:127 [facility] POCT urine pregnancyon 03-31 Beta HCG ( test) Ql (U) Negative NEGATIVE [employer] [facility] [employer] Comment on above: Specimens with hCG l evels near the threshold of the test (25 mIU/mL) may give a negative or indeterminate result. In such cases, another test should be performed with a new specimen in 48-72 hours. If early is suspected clinically in this setting, correlation with quantitative serum b-hCG level is suggested. Vital Signs Date Time Vital Sign Value Performing Clinician Facility 05-27-2025 09:03-0400 Body height 151.1 cm Katherine Doss MD Work Phone: [facility] 05-27-2025 09:03-0400 Body mass index (BMI) [Ratio] 56.48 kg/m2 Katherine Doss MD Work Phone: [facility] 05-27-2025 09:03-0400 Body weight 128.96 kg Katherine Doss MD Work Phone: [facility] 05-27-2025 09:03-0400 Diastolic blood pressure 71 mm[Hg] Katherine Doss MD Work Phone: [facility] 05-27-2025 09:03-0400 Heart rate 75 /min Katherine Doss MD Work Phone: [facility] 05-27-2025 09:03-0400 SaO2% (BldA) [Mass fraction] 95 % Katherine Doss MD Work Phone: [facility] 05-27-2025 09:03-0400 Systolic blood pressure 119 mm[Hg] Katherine Doss MD Work Phone: [facility] 05-22-2025 13:46-0400 Body height 149.9 cm Laurent Sierra DPM Work Phone: [facility] 05-22-2025 13:46-0400 Body mass index (BMI) [Ratio] 58.17 kg/m2 Laurent Sierra DPM Work Phone: [facility] 05-22-2025 13:46-0400 Body weight 130.64 kg Laurent Sierra DPM Work Phone: [facility] 05-17-2025 09:31-0400 Body height 151.1 cm Charlene Cardenas MD Work Phone: [facility] 05-17-2025 09:31-0400 Body mass index (BMI) [Ratio] 56.86 kg/m2 Charlene Cardenas MD Work Phone: [facility] 05-17-2025 09:31-0400 Body weight 129.82 kg Charlene Cardenas MD Work Phone: [facility] 05-17-2025 09:31-0400 Diastolic blood pressure 68 mm[Hg] Charlene Cardenas MD Work Phone: [facility] 05-17-2025 09:31-0400 Heart rate 78 /min Charlene Cardenas MD Work Phone: [facility] 05-17-2025 09:31-0400 Systolic blood pressure 111 mm[Hg] Charlene Cardenas MD Work Phone: [facility] 05-01-2025 09:05-0400 Body height 149.9 cm [facility] 05-01-2025 09:05-0400 Body mass index (BMI) [Ratio] 57.85 kg/m2 [facility] 05-01-2025 09:05-0400 Body weight 129.91 kg [facility] 05-01-2025 09:05-0400 Diastolic blood pressure 94 mm[Hg] [facility] 05-01-2025 09:05-0400 Systolic blood pressure 132 mm[Hg] [facility] 04-17-2025 13:04-0400 Body height 149.86 cm Lizbeth Snyder APRN Work Phone: [place] 04-17-2025 13:04-0400 Body mass index (BMI) [Ratio] 59.8 kg/m2 Lizbeth Snyder APRN Work Phone: [place] 04-17-2025 13:04-0400 Body temperature 96.5 [degF] Lizbeth Snyder APRN Work Phone: [place] 04-17-2025 13:04-0400 Body weight 134.26 kg Lizbeth Snyder FUEL CELL DESIGNER Work Phone: [place] 04-17-2025 13:04-0400 Diastolic blood pressure 72 mm[Hg] Lizbeth Snyder FUEL CELL DESIGNER Work Phone: [place] 04-17-2025 13:04-0400 Heart rate 76 /min Lizbeth Snyder FUEL CELL DESIGNER Work Phone: [place] 04-17-2025 13:04-0400 SaO2% (BldA) [Mass fraction] 98 % Lizbeth Snyder FUEL CELL DESIGNER Work Phone: [place] 04-17-2025 13:04-0400 Systolic blood pressure 124 mm[Hg] Lizbeth Snyder FUEL CELL DESIGNER Work Phone: [place] 01-16-2025 14:58-0400 Body height 149.9 cm Yamile Lowe PA Work Phone: [facility] 01-16-2025 14:58-0400 Body mass index (BMI) [Ratio] 58.17 kg/m2 Yamile Lowe PA Work Phone: [facility] 01-16-2025 14:58-0400 Body weight 130.64 kg Yamile Lowe PA Work Phone: [facility] 01-16-2025 14:58-0400 Diastolic blood pressure 80 mm[Hg] Yamile Lowe PA Work Phone: [facility] 01-16-2025 14:58-0400 Systolic blood pressure 128 mm[Hg] Yamile Lowe PA Work Phone: [facility] 11-07-2024 19:13-0500 Body height 149.9 cm Pmh 1 [facility] 11-07-2024 19:13-0500 Body mass index (BMI) [Ratio] 54.13 kg/m2 Pmh 1 [facility] 11-07-2024 19:13-0500 Body weight 121.56 kg Pmh 1 [facility] 09-10-2024 09:03-0500 Body height 149.9 cm Yamile Lowe PA Work Phone: [facility] 09-10-2024 09:03-0500 Body mass index (BMI) [Ratio] 54.33 kg/m2 Yamile Lowe PA Work Phone: [facility] 09-10-2024 09:03-0500 Body weight 122.02 kg Yamile Lowe PA Work Phone: [facility] 09-10-2024 09:03-0500 Diastolic blood pressure 84 mm[Hg] Yamile Lowe PA Work Phone: [facility] 09-10-2024 09:03-0500 Systolic blood pressure 128 mm[Hg] Yamile Lowe PA Work Phone: [facility] 08-13-2024 14:57-0500 Body height 149.9 cm Katherine Doss MD Work Phone: [facility] 08-13-2024 14:57-0500 Body mass index (BMI) [Ratio] 54.22 kg/m2 Katherine Doss MD Work Phone: [facility] 08-13-2024 14:57-0500 Body weight 121.84 kg Katherine Doss MD Work Phone: [facility] 08-13-2024 14:57-0500 Diastolic blood pressure 56 mm[Hg] Katherine Doss MD Work Phone: [facility] Comment on above: right arm 84/57 xl cuff used 08-13-2024 14:57-0500 Heart rate 76 /min Katherine Doss MD Work Phone: [facility] 08-13-2024 14:57-0500 SaO2% (BldA) [Mass fraction] 98 % Katherine Doss MD Work Phone: [facility] 08-13-2024 14:57-0500 Systolic blood pressure 86 mm[Hg] Katherine Doss MD Work Phone: [facility] Comment on above: right arm 84/57 xl cuff used 07-20-2024 09:54-0400 Body height 149.9 cm Laurent Sierra DPM Work Phone: [facility] 07-20-2024 09:54-0400 Body mass index (BMI) [Ratio] 53.32 kg/m2 Laurent Sierra DPM Work Phone: [facility] 07-20-2024 09:54-0400 Body weight 119.75 kg Laurent Sierra DPM Work Phone: [facility] 03-06-2024 14:15-0400 Body height 149.[address] [facility] 4yr [facility] 03-06-2024 14:15-0400 Body mass index (BMI) [Ratio] 54.1 kg/m2 [facility] 4yr [facility] 03-06-2024 14:15-0400 Body weight 121.[address] [facility] 4yr [facility] 03-06-2024 14:15-0400 Diastolic blood pressure 82 mm[Hg] [facility] 4yr [facility] 03-06-2024 14:15-0400 Systolic blood pressure 106 mm[Hg] [facility] 4yr [facility] 02-21-2024 11:11-0400 Body height 149.9 cm Rehana Senior DO Work Phone: [facility] 02-21-2024 11:11-0400 Body mass index (BMI) [Ratio] 55.66 kg/m2 Rehana Senoir DO Work Phone: [facility] 02-21-2024 11:11-0400 Body weight 125.01 kg Rehana Senior DO Work Phone: [facility] 02-21-2024 11:11-0400 Diastolic blood pressure 68 mm[Hg] Rehana Senior DO Work Phone: [facility] 02-21-2024 11:11-0400 Systolic blood pressure 124 mm[Hg] Rehana Senior DO Work Phone: [facility] 02-09-2024 14:06-0400 Body height 149.86 cm DANDRE Snyder Work Phone: [place] 02-09-2024 14:06-0400 Body mass index (BMI) [Ratio] 55.3 kg/m2 FUEL CELL DESIGNERFernanda Patelacher Work Phone: [place] 02-09-2024 14:06-0400 Body weight 124.28 kg FUEL CELL DESIGNERFernanda Patelacher Work Phone: [place] 02-09-2024 14:06-0400 Diastolic blood pressure 80 mm[Hg] FUEL CELL DESIGNERFernanda Patelacher Work Phone: [place] 02-09-2024 14:06-0400 Heart rate 85 /min FUEL CELL DESIGNERFernanda Patelacher Work Phone: [place] 02-09-2024 14:06-0400 SaO2% (BldA) [Mass fraction] 99 % FUEL CELL DESIGNERFernanda Patelacher Work Phone: [place] 02-09-2024 14:06-0400 Systolic blood pressure 120 mm[Hg] FUEL CELL DESIGNERFernanda Urenar Work Phone: [place] 02-06-2024 08:27-0400 Body height 149.9 cm [facility] 02-06-2024 08:27-0400 Body mass index (BMI) [Ratio] 54.86 kg/m2 [facility] 02-06-2024 08:27-0400 Body weight 123.2 kg [facility] 02-06-2024 08:27-0400 Diastolic blood pressure 84 mm[Hg] [facility] 02-06-2024 08:27-0400 Systolic blood pressure 132 mm[Hg] [facility] 12-12-2023 12:06-0400 Body height 149.9 cm Katherine Doss MD Work Phone: [facility] 12-12-2023 12:06-0400 Body mass index (BMI) [Ratio] 53.73 kg/m2 Katherine Doss MD Work Phone: [facility] 12-12-2023 12:06-0400 Body weight 120.66 kg Katherine Doss MD Work Phone: [facility] 12-12-2023 12:06-0400 Diastolic blood pressure 78 mm[Hg] Katherine Doss MD Work Phone: [facility] 12-12-2023 12:06-0400 Heart rate 67 /min Katherine Doss MD Work Phone: [facility] 12-12-2023 12:06-0400 SaO2% (BldA) [Mass fraction] 96 % Katherine Doss MD Work Phone: [facility] 12-12-2023 12:06-0400 Systolic blood pressure 129 mm[Hg] Katherine Doss MD Work Phone: [facility] 12-02-2023 09:05-0500 Body height 149.86 cm FUEL CELL DESIGNERFernanda Snyder Work Phone: [place] 12-02-2023 09:05-0500 Body mass index (BMI) [Ratio] 53.9 kg/m2 FUEL CELL DESIGNERFernanda Snyder Work Phone: [place] 12-02-2023 09:05-0500 Body weight 121.1 kg DANDRE Snyder Work Phone: [place] 12-02-2023 09:05-0500 Diastolic blood pressure 78 mm[Hg] DANDRE Snyder Work Phone: [place] 12-02-2023 09:05-0500 Heart rate 77 /min DANDRE Snyder Work Phone: [place] 12-02-2023 09:05-0500 SaO2% (BldA) [Mass fraction] 98 % DANDRE Snyder Work Phone: [place] 12-02-2023 09:05-0500 Systolic blood pressure 110 mm[Hg] DANDRE Snyder Work Phone: [place] 12-22-2020 11:30-0400 Body Temperature 98.4 [degF] [employer] Work Phone: 12-22-2020 11:30-0400 BP Diastolic 73 mm[Hg] [employer] Work Phone: 12-22-2020 11:30-0400 BP Systolic 102 mm[Hg] [employer] Work Phone: 12-22-2020 11:30-0400 Pulse (Heart Rate) 79 /min [employer] Work Phone: 12-22-2020 11:30-0400 Pulse Oximetry 99 % [employer] Work Phone: 12-22-2020 11:30-0400 Respiratory Rate 18 /min [employer] Phone: 12-22-2020 08:14-0400 BMI (Body Mass Index) 54.13 kg/m2 [employer] Phone: 12-22-2020 08:14-0400 Body weight 121.56 kg [employer] Work Phone: 12-22-2020 08:14-0400 Height 149.9 cm [employer] Phone: 03-31-2020 12:41-0400 Body Temperature 97.2 [degF] [facility] 03-31-2020 12:41-0400 BP Diastolic 77 mm[Hg] [facility] [place] , [place] 03-31-2020 12:41-0400 BP Systolic 125 mm[Hg] [employer] [place] , [place] 03-31-2020 12:41-0400 Pulse (Heart Rate) 80 /min Kolby Ellis [facility], [place] 03-31-2020 12:41-0400 Pulse Oximetry 96 % Kolby Ellis [facility] , [place] 03-31-2020 12:41-0400 Respiratory Rate 17 /min [facility], [place] 03-31-2020 11:32-0400 BMI (Body Mass Index) 54.13 kg/m2 Kolby Ellis [facility], [place] 03-31-2020 11:32-0400 Body weight 121.56 kg Kolby Ellis [place], [place] 03-31-2020 11:32-0400 Height 149.9 cm Kolby Ellis [place], [place] Encounters Encounter Date Encounter Type Care Provider Facility Start: 05-28-2025 ambulatory Kolby Génesis Rhonda Facility : SUR[facility]INIC Start: 05-27-2025 End: 05-27-2025 Office outpatient visit 15 minutes [facility] Comment on above: Intermittent asthma, unspecified asthma severity, unspecified whether complicated (Primary Dx) Start: 05-27-2025 End: 05-27-2025 ambulatory KATHERINE DOSS [facility] Start: 05-22-2025 End: 05-22-2025 Bamboo flowsheet Laurent Sierra DPM Work Phone: [facility] Start: 05-22-2025 End: 05-22-2025 Bamboo flowsheet [facility]PM [facility] Start: 05-22-2025 End: 05-22-2025 Office outpatient visit 15 minutes Laurent Sierra DPM Work Phone: [facility] Comment on above: Onychocryptosis (Chantal nadir Dx); Dystrophic nail; Pain around toenail, right foot; Pain around toenail, left foot; Difficulty walking Start: 05-22-2025 End: 05-22-2025 ambulatory LAURENT SIERRA Not Available Start: 05-17-2025 End: 05-17-2025 Telephone encounter Yamile Watson CMA [facility] Start: 05-17-2025 End: 05-17-2025 Office outpatient new 45 minutes Charlene Cardenas MD Work Phone: [facility] General Surgery Comment on above: Morbid obesity (CMS- HCC) (Primary Dx) Start: 05-17-2025 End: 05-17-2025 ambulatory CHARLENE CARDENAS [facility] Start: 05-14-2025 ambulatory Ingrid Culver Facil ity: SURG CLINIC Start: 05-01-2025 End: 05-01-2025 [facility] Start: 05-01-2025 End: 05-01-2025 Encounter for gynecological examination (general) (routine) without abnormal findings [facility] Start: 05-01-2025 End: 05-01-2025 Patient encounter procedure [facility] Start: 05-01-2025 End: 05-01-2025 Periodic preventive med est patient 18-39 yrs [facility] Machine Former [facility] [place] Comment on above: Well woman exam with routine gynecological exam (Primary Dx); Encounter for screening mammogram for malignant neoplasm of breast; Standardized adult depression screening tool completed; Pap smear, as part of routine gynecological examination Start: 04-17-2025 End: 04-17-2025 ambulatory Lizbeth Snyder APRN Work Phone: [facility] Work Phone: Start: 04-17-2025 End: 04-17-2025 Patient encounter procedure Lizbeth Snyder APRN SINGER SONGWRITER -[facility] Work Phone: Start: 04-16-2025 ambulatory Ingrid Culver Facil ity: SURG CLINIC Start: 01-25-2025 End: 01-25-2025 Telephone [facility] Start: 01-16-2025 End: 01-16-2025 Office outpatient visit 25 minutes Yamile SEVERINO Work Phone: [facility] Comment on above: Polyneuropathy; Paresthesia Start: 01-16-2025 End: 01-16-2025 ambulatory YAMILE LOWE Not Available Start: 01-16-2025 End: 01-16-2025 Bamboo flowsheet Yamile Lowe PA Work Phone: [facility] Start: 01-16-2025 End: 01-16-2025 Bamboo flowsheet Yamile Lowe PA Work Phone: [facility] [place] Start: 12-20-2024 End: 12-20-2024 ambulatory LAURENT SIERRA Not Available Start: 11-23-2024 End: 11-23-2024 Documentation procedure [facility]oss MD [facility] Start: 11-23-2024 End: 11-23-2024 Telephone encounter Ema Reynoso [facility] s Pulmonary/Sleep Medicine Start: 11-07-2024 End: 11-07-2024 Clinical Support Katherine Doss MD Work Phone: [facility] Comment on above: MUKESH (obstructive sle ep apnea) Start: 11-07-2024 ambulatory KATHERINE DOSS [facility] Start: 10-02-2024 End: 10-04-2024 Refill Katherine Doss MD Work Phone: [facility] Pulmonary[facility]Sleep Medicine Comment on above: Moderate persistent asthma, unspecified whether complicated Start: 09-10-2024 End: 09-10-2024 Bamboo flowsheet Yamile Lowe PA Work Phone: [facility] Start: 09-10-2024 End: 09-10-2024 Bamboo flowsheet Yamile Lowe PA Work Phone: [facility] Start: 09-10-2024 End: 09-10-2024 Telephone encounter Yamile Lowe PA Work Phone: [facility] [place] Start: 09-10-2024 End: 09-10-2024 Office outpatient visit 25 minutes Yamile Lowe PA Work Phone: [facility] Comment on above: Paresthesia (Primary Dx) Start: 09-10-2024 End: 09-10-2024 ambulatory YAMILE LOFTON Not Available Start: 09-03-2024 End: 09-04-2024 Refill Katherine Doss MD Work Phone: [facility] Pulmonary[facility]Sleep Medicine Comment on above: Moderate persistent asthma, unspecified whether complicated Start: 08-15-2024 End: 08-15-2024 Telephone encounter Katherine Doss MD Work Phone: [facility] Comment on above: Sleep Lab (HST) Start: 08-14-2024 End: 08-14-2024 Telephone encounter Orders Support User Transcribe [facility] Comment on above: Sleep Lab (PSG Order ) Start: 08-13-2024 End: 08-13-2024 ambulatory KATHERINE DOSS [facility] Start: 08-13-2024 End: 08-13-2024 Office outpatient visit 15 minutes Katherine Doss MD Work Phone: [facility] Pulmonary[facility]Sleep Medicine Comment on above: MUKESH (obstructive sle ep apnea) (Primary Dx) Start: 07-20-2024 End: 07-20-2024 Bamboo flowsheet Laurent Sierra DPM Work Phone: [facility] Start: 07-20-2024 End: 07-20-2024 Bamboo flowsheet Laurent Sierra DPM Work Phone: [facility] Start: 07-20-2024 End: 07-20-2024 Office outpatient visit 15 minutes Laurent Sierra DPM Work Phone: [facility] Comment on above: Capsulitis of right foot (Primary Dx); Sprain of ligament of tarsometatarsal joint of right foot, sequela; Pain in joint of right foot; Difficulty walking Start: 07-20-2024 End: 07-20-2024 ambulatory LAURENT SIERRA Not Available Start: 07-18-2024 End: 07-18-2024 ambulatory LAURENT SIERRA Not Available Start: 07-18-2024 End: 07-18-2024 Patient encounter procedure Laurent Sierra DPM Work Phone: [facility] Comment on above: Dystrophic nail (Chantal nadir Dx); Onychocryptosis; Pain around toenail, right foot; Pain around toenail, left foot Start: 07-18-2024 End: 07-18-2024 Bamboo flowsheet Laurent Sierra DPM Work Phone: [facility] Start: 07-18-2024 End: 07-18-2024 Bamboo flowsheet Laurent Sierra DPM Work Phone: [facility] Start: 07-17-2024 End: 07-17-2024 Bamboo flowsheet Laurent Sierra DPM Work Phone: [facility] Start: 07-17-2024 End: 07-17-2024 Bamboo flowsheet Laurent Sierra DPM Work Phone: [facility] Start: 06-05-2024 Patient encounter status Porsha thee Snyder APRN Work Phone: [place] Start: 05-28-2024 End: 05-28-2024 Telephone encounter [facility] Work Phone: [facility] Start: 04-24-2024 End: 04-24-2024 Telephone encounter [facility] Work Phone: [facility] Start: 03-29-2024 End: 03-29-2024 Telephone encounter [facility] Work Phone: [facility] Start: 03-20-2024 End: 03-20-2024 Telephone encounter [facility] Work Phone: [facility] Start: 03-06-2024 End: 03-06-2024 Office outpatient new [address] [facility] Svcs Resident [facility] Comment on above: Request for [...] Start: 03-06-2024 End: 03-06-2024 Preprocedural examination done [facility] 4yr [facility] Start: 03-06-2024 End: 03-06-2024 ambulatory [facility] Start: 03-06-2024 Encounter for other preprocedural examination [facility] Start: 02-28-2024 Preprocedural examin ation done [facility] Work Phone: [place] Start: 02-21-2024 End: 02-21-2024 Admission to same day surgery center Rehana Senior DO Work Phone: [facility] [employer] Work Phone: Start: 02-21-2024 End: 02-21-2024 Office outpatient visit 15 minutes Rehana Senior DO Work Phone: [facility] Obstetrics/Gynecolog y Comment on above: [...] unspecified whether persistent; Request for sterilization Start: 02-09-2024 End: 02-09-2024 ambulatory Lizbeth Snyder Facility:[place] Start: 02-09-2024 End: 02-09-2024 ambulatory DANDRE Nieves Claudio Work Phone: [facility] Work Phone: Start: 02-09-2024 End: 02-09-2024 Departed Referred DANDRE Nieves Claudio Work Phone: [facility] [place] Work Phone: Start: 02-09-2024 End: 02-09-2024 Patient encounter procedure DANDRE Nieves Claudio Work Phone: [facility] Work Phone: Start: 02-06-2024 End: 02-06-2024 Patient encounter procedure [facility] Work Phone: Start: 02-06-2024 End: 02-06-2024 Periodic preventive med est patient 18-39 yrs [facility] Former [facility] [place] Comment on above: Well woman exam with routine gynecological exam (Primary Dx); Standardized adult depression screening tool completed; Request for sterilization Start: 12-12-2023 End: 12-12-2023 Office outpatient visit 15 minutes Katherine Doss MD Work Phone: [facility] Comment on above: MUKESH (obstructive sle ep apnea) (Primary Dx) Start: 12-02-2023 End: 12-02-2023 Patient encounter procedure DANDRE Lizbeth Snyder Work Phone: [facility] Work Phone: Start: 11-08-2023 Refill Katherine fiore MD Work Phone: [facility] Comment on above: Moderate persistent asthma, unspecified whether complicated Start: 10-10-2023 Refill Katherine fiore MD Work Phone: [facility] Comment on above: Moderate persistent asthma, unspecified whether complicated Start: 02-13-2023 End: 02-13-2023 ambulatory GEOVANNI ROBBIE . Facility: Start: 01-05-2021 End: 01-05-2021 Patient encounter procedure KOLBY [facility] Start: 12-22-2020 End: 12-22-2020 Patient encounter procedure [facility] Start: 12-22-2020 End: 12-22-2020 Subsequent hospital visit by physician Kolby Ellis Work Phone: [facility] Comment on above: Post-op pain (Primar y Dx) Start: 03-31-2020 End: 03-31-2020 Patient encounter procedure INGRID CULVER [facility] Start: 03-31-2020 End: 03-31-2020 Subsequent hospital visit by physician Kolby Ellis Work Phone: [facility] Start: 03-27-2020 End: 03-27-2020 Subsequent hospital visit by physician [facility] Covid19 Pat Screening Schedule [facility] Pre-Admit Testing Comment on above: No Show Procedures Date Procedure Procedure Detail Performing Clinician Start: 05-01-2025 Microscopic observat ion [Identifier] in Cervix by Cyto stain Yamile Watson CHARTER COORDINATOR Start: 08-13-2024 Follow-up visit Follow-up KATHERINE DOSS Start: 07-20-2024 Radex foot complete minimum 3 views Laurent Sierra DPM Work Phone: Start: 03-06-2024 Urine test visual color cmprsn meths Beatrice Pina DO Work Phone: Start: 02-06-2024 Adult depression scr eening assessment [facility] Former Start: 09-11-2021 Adult depression scr eening assessment Kathreine Doss MD Work Phone: Start: 12-22-2020 Glucose blood reagen t strip Kolby Ellis Work Phone: Start: 12-22-2020 Fluoroscopy during operation Kolby Ellis Work Phone: Start: 12-22-2020 Gonadotropin chorion ic qualitative Rosana Fernanda Wilhelm Work Phone: Start: 12-22-2020 Glucose blood reagen t strip Kolby Ellis Work Phone: Start: 06-10-2020 Microscopic observat ion [Identifier] in Cervix by Cyto stain Katherine Doss MD Work Phone: Start: 03-31-2020 DISCHARGE PATIENT MACARIO CULVER Start: 03-31-2020 Urine test visual color cmprsn meths INGRID CULVER Start: 03-31-2020 Urine test visual color cmprsn meths Kolby Ellis Work Phone: Plan of Treatment Date Care Activity Detail Author Start: 11-26-2030 DTaP,Tdap and Td Vac cines (2 - Tdap) DTaP,Tdap and Td Vaccines (2 - Tdap) [facility] Start: 05-01-2030 Screening for malign ant neoplasm of cervix [facility] Start: 05-01-2028 Screening for malign ant neoplasm of cervix Pap Smear [facility] Start: 05-27-2026 Adult BMI Screening Adult BMI Screen ing [facility] Start: 05-27-2026 Tobacco Screening Tobacco Screening [facility] Start: 05-17-2026 Adult BMI Screening Adult BMI Screen ing [facility] Start: 05-17-2026 Tobacco Screening Tobacco Screening [facility] Start: 05-01-2026 Adult BMI Follow Up Plan Adult BMI Follow Up Plan [facility] Start: 05-01-2026 Adult BMI Screening Adult BMI Screen ing [facility] Start: 05-01-2026 Tobacco Screening Tobacco Screening [facility] Start: 11-25-2025 End: 11-25-2025 Patient encounter procedure 11/25/2025 9:30 AM EST Office Visit [facility] [address] [place] [address] Katherine Doss MD [address] [place] [address] [facility] Start: 11-07-2025 Adult BMI Screening Adult BMI Screen ing [facility] Start: 11-07-2025 Tobacco Screening Tobacco Screening [facility] Start: 09-24-2025 End: 09-24-2025 Patient encounter procedure 09/24/2025 2:45 PM EST [facility] [address] [place] [phone] Laurent Sierra DPM [address] [place], [place] [id number] [facility] Start: 08-13-2025 Adult BMI Screening Adult BMI Screen ing [facility] Start: 06-17-2025 End: 06-17-2025 Patient encounter procedure 06/17/2025 10:15 AM EDT Office Visit [facility] [address] [place] [phone] Jani Posadas MD [address] [place], [place] [id number] [facility] Start: 06-04-2025 End: 06-04-2025 Telemedicine consultation with patient 06/04/2025 8:30 AM EDT Telemedicine [facility] [address] [place] [address] [facility] Start: 06-03-2025 Influenza vaccination N [facility] Start: 05-30-2025 End: 05-30-2025 Patient encounter procedure 05/30/2025 8:30 AM EDT Appointment [facility] [address] [place] [phone] Katherine Doss MD [address] [place] [address] [facility] Start: 05-27-2025 End: 05-27-2026 XR Chest PA and Lateral X-ray chest 2 views Imaging Routine Intermittent asthma, unspecified asthma severity, unspecified whether complicated Expected: 05/27/2025, Expires: 05/27/2026 [facility] on above: Expected: 05/27/2025 , Expires: 05/27/2026 Start: 05-22-2025 End: 05-22-2025 Patient encounter procedure [facility] Comment on above: Arrived Start: 05-17-2025 End: 05-17-2026 RF Gastrointestinal tract upper Views W air contrast PO and W barium contrast PO Fluoroscopy upper GI with esophagus Imaging Routine Morbid obesity ([facility]) Expected: 05/17/2025, Expires: 05/17/2026 [facility] Comment on above: Expected: 05/17/2025 , Expires: 05/17/2026 Start: 05-17-2025 End: 05-17-2025 Patient encounter procedure 05/17/2025 9:30 AM EDT Office Visit [facility] General Surgery [address] [place] [phone] Charlene Cardenas MD [address] [place] [address] [facility] General Surgery Start: 05-16-2025 End: 05-16-2025 Patient encounter procedure 05/16/2025 2:40 PM EDT Office Visit [facility] [address] [place] [address] Yamile Lfoton PA [address] [place] [address] [facility] Start: 05-01-2025 End: 05-01-2026 DBT Breast - bilateral screening Mammography screening bilateral with CAD Imaging Routine Encounter for screening mammogram for malignant neoplasm of breast Expected: 05/01/2025, Expires: 05/01/2026 [facility] Work Phone: Comment on above: Expected: 05/01/2025 , Expires: 05/01/2026 Start: 04-15-2025 End: 04-15-2025 Patient encounter procedure 04/15/2025 2:30 PM EDT Office Visit [facility] [address] [place] [address] Katherine Doss MD [address] [place] [address] [facility] Start: 03-06-2025 Adult BMI Screening Adult BMI Screen ing [facility] Start: 03-06-2025 Tobacco Screening Tobacco Screening [facility] Start: 02-20-2025 Adult BMI Screening Adult BMI Screen ing [facility] Start: 02-20-2025 Tobacco Screening Tobacco Screening [facility] Start: 02-05-2025 Adult BMI Follow Up Plan Adult BMI Follow Up Plan [facility] Start: 02-05-2025 Adult BMI Screening Adult BMI Screen ing [facility] Start: 02-05-2025 Depression Screening Depression Scre ening [facility] Start: 02-05-2025 Tobacco Screening Tobacco Screening [facility] Start: 01-16-2025 End: 01-16-2025 Patient encounter procedure 01/16/2025 3:00 PM EDT Office Visit [facility] [address] [place] [phone] Yamile Lofton PA [address] [place] [phone] Arrived [facility] Comment on above: Arrived Start: 12-18-2024 End: 12-18-2024 Patient encounter procedure 12/18/2024 2:20 PM EDT Office Visit [facility] [address] [place] [phone] Yamile Lofton PA [address] [place] [address] [facility] [place] [address] Start: 12-11-2024 Adult BMI Screening Adult BMI Screen ing [facility] Start: 09-10-2024 End: 09-10-2025 MR Lumbar spine WO contrast MR lumbar spine wo contrast Imaging Routine Paresthesia Expected: 09/10/2024, Expires: 09/10/2025 [facility] Work Phone: Comment on above: Expected: 09/10/2024 , Expires: 09/10/2025 Start: 09-10-2024 End: 09-10-2024 Patient encounter procedure 09/10/2024 9:00 AM EST Office Visit [facility] [address] [place] [address] Yamile Lofton PA [address] [place], [place] [id number] [facility] Comment on above: Arrived Start: 08-27-2024 End: 08-27-2024 Patient encounter procedure 08/27/2024 1:20 PM EST Office Visit [facility] [address] [place] [address] Nallely Pichardo, BUZZSAW OPERATOR HELPER [address] [place] [address] [facility] [address] Start: 07-31-2024 End: 07-31-2024 Patient encounter procedure 07/31/2024 10:45 AM EDT Office Visit [facility] [address] [place] [phone] Laurent Sierra DPM [address] [place] [address] [facility] Start: 07-20-2024 End: 07-20-2024 Patient encounter procedure [facility] Comment on above: Arrived Start: 07-18-2024 End: 07-18-2024 Patient encounter procedure 07/18/2024 2:15 PM EDT Procedure Visit [facility] [address] [place] [address] Laurent Sierra DPM [address] [place] [address] Arrived [facility] Comment on above: Arrived Start: 07-16-2024 End: 07-16-2024 Admission to same day surgery center 07/16/2024 11:30 AM EDT - 07/16/2024 1:00 PM EDT Surgery [facility] Surgery [address] [place] [phone] Beatrice Pina, DO [address] [place] [address] LAPAROSCOPIC SALPINGECTOMY [61837 (CPT )] [facility] Comment on above: LAPAROSCOPIC SALPING ECTOMY [80361 (CPT )] Start: 07-16-2024 End: 07-16-2024 Laparoscopy w/rmvl adnexal structures LAPAROSCOPIC SALPINGECTOMY desires sterilizaiton 07/16/2024 11:30 AM EDT [place] [facility] Start: 07-16-2024 Subsequent hospital visit by physician 07/16/2024 11:30 AM EDT Hospital Encounter [address] [place] [address] Beatrice Pina, DO [address] [place] [address] [place] [address] [facility] Start: 07-16-2024 End: 07-16-2024 Admission to same day surgery center 07/16/2024 7:30 AM EDT - 07/16/2024 9:00 AM EDT Surgery [address] [place] [address] Beatrice Pina, DO [address] [place] [address] [place] [address] LAPAROSCOPIC SALPINGECTOMY [29405 (CPT )] [facility] Comment on above: LAPAROSCOPIC SALPING ECTOMY [21010 (CPT )] Start: 07-16-2024 End: 07-16-2024 Laparoscopy w/rmvl adnexal structures LAPAROSCOPIC SALPINGECTOMY desires sterilizaiton 07/16/2024 7:30 AM EDT [place] [facility] Start: 07-16-2024 Subsequent hospital visit by physician 07/16/2024 7:30 AM EDT Hospital Encounter [facility] [address] [place] [address] Beatrice Pina [address] [facility] [place] [address] [place] [address] [facility] Start: 07-02-2024 End: 07-02-2024 Admission to establishment 07/02/2024 10:30 AM EDT Support Visit [facility] On [address] [address] [facility] Start: 06-25-2024 End: 06-25-2024 Patient encounter procedure 06/25/2024 2:30 PM EDT Office Visit [facility] [address] [place] [phone] Katherine Doss MD [address] [facility] [place] [address] [facility] Start: 06-21-2024 End: 06-21-2024 Patient encounter procedure 06/21/2024 2:15 PM EDT Office Visit [facility] [address] [place] [phone] [facility] Start: 06-11-2024 End: 06-11-2024 Admission to same day surgery center 06/11/2024 2:30 PM EDT - 06/11/2024 4:00 PM EDT Surgery [facility] [address] [place] [address] Beatrice Pina, DO [address] [place] [address] [place] [address] LAPAROSCOPIC SALPINGECTOMY [78244 (CPT )] [facility] Comment on above: LAPAROSCOPIC SALPING ECTOMY [56377 (CPT )] Start: 06-11-2024 End: 06-11-2024 Laparoscopy w/rmvl adnexal structures LAPAROSCOPIC SALPINGECTOMY desires sterilizaiton 06/11/2024 2:30 PM EDT [place] [facility] Start: 06-11-2024 Subsequent hospital visit by physician 06/11/2024 2:30 PM EDT Hospital Encounter [address] [place] [address] Beatrice Pina, DO [address] [place] [address] [place] [address] [facility] Start: 06-03-2024 COVID-19 Vaccine ( season) COVID-19 Vaccine ( season) [facility] Start: 06-03-2024 Influenza vaccination N [facility] Start: 05-31-2024 End: 05-31-2024 Patient encounter procedure [facility] Start: 05-28-2024 End: 05-28-2024 Admission to establishment 05/28/2024 9:30 AM EDT Support Visit [facility] [address] [place] [address] [place] [address] [facility] Start: 05-14-2024 End: 05-14-2024 Admission to same day surgery center 05/14/2024 2:30 PM EDT - 05/14/2024 4:00 PM EDT Surgery [facility] [address] [place] [address] Beatrice Pina, DO [address] [place] [address] LAPAROSCOPIC SALPINGECTOMY [81766 (CPT )] [facility] Comment on above: LAPAROSCOPIC SALPING ECTOMY [20184 (CPT )] Start: 05-14-2024 End: 05-14-2024 Laparoscopy w/rmvl adnexal structures LAPAROSCOPIC SALPINGECTOMY desires sterilizaiton 05/14/2024 2:30 PM EDT [place] [facility] Start: 05-14-2024 Subsequent hospital visit by physician 05/14/2024 2:30 PM EDT [facility] [facility] [address] [place] [address] Beatrice Pina, DO [address] [place] [address] [facility] Start: 04-30-2024 End: 04-30-2024 Admission to establishment 04/30/2024 9:30 AM EDT Support Visit [facility] On [address] [address] [facility] Start: 04-11-2024 Adult BMI Screening Adult BMI Screen [facility] Start: 03-06-2024 End: 03-06-2024 Patient encounter procedure 03/06/2024 2:15 PM EDT Office Visit [facility] [address] [place] [id number] [facility] Start: 02-21-2024 End: 02-21-2024 Patient encounter procedure 02/21/2024 11:00 AM EDT Office Visit [facility] [address] [place] [phone] Rehana Senior DO [address] [place] [address] [facility] Start: 02-09-2024 Bacteria identified in Urine by Culture [place] Start: 02-09-2024 Patient referral [facility] Work Phone: Start: 02-06-2024 End: 02-06-2024 Patient encounter procedure 02/06/2024 8:30 AM EDT Office Visit [facility] [place] [address] [place] [place] [address] [facility] [place] Start: 02-02-2024 Adult BMI Follow Up Plan Adult BMI Follow Up Plan [facility] Start: 02-02-2024 Tobacco Screening Tobacco Screening [facility] Start: 12-12-2023 End: 12-12-2023 Patient encounter procedure 12/12/2023 12:15 PM EDT Office Visit [facility] [address] [place] [id number] Katherine Doss MD [address] [place] [address] [facility] Start: 06-10-2023 Screening for malign ant neoplasm of cervix Pap Smear [facility] Start: 06-03-2023 COVID-19 Vaccine ( season) COVID-19 Vaccine ( season) [facility] Start: 06-03-2023 Influenza vaccination Influenza Vacc ine [facility] Start: 09-11-2022 Depression Screening Depression Scre ening [facility] Start: 01-05-2021 End: 01-05-2021 Hospital Encounter [facility] OR Comment on above: 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 Start: 06-03-2020 Influenza vaccination [facility], [place] Start: 2015 Screening for malign ant neoplasm of cervix [facility] Start: 2006 Screening for malign ant neoplasm of cervix [facility] Start: 2004 DTaP/Tdap/Td vaccine (1 - Tdap) DTaP/Tdap/Td vaccine (1 - Tdap) [place], [place] Start: 2003 Diabetic foot examination Diabetic F oot Exam [facility] Start: 2001 COVID-19 Vaccine (1) COVID-19 Vaccin e (1) [facility] [employer] Work Phone: Start: 2000 HIV screening HIV screen [place], [place] Start: 1995 Lipid panel Lipid screen [facility] [employer] Phone: Start: 1986 Varicella vaccine (1 of 2 - 2-dose childhood series) Varicella vaccine (1 of 2 - 2-dose childhood series) [place], [place] Start: 1985 Creatinine measurement Creatinine mo nitoring [facility] [employer] Phone: Start: 1985 Glaucoma screening Diabetic Op hthalmology Exam [facility] Start: 1985 Hepatitis C screening Hepatitis C sc [facility]en [facility] Phone: Start: 1985 Potassium monitoring Potassium monit [facility] [employer] Phone: End: 12-23-2020 Blood glucose - POCT Blood glucose - POCT Point of Care Testing Routine One Time for 1 Occurrences starting 12/23/2020 until 12/23/2020 [employer] Phone: Comment on above: One Time for 1 Occur rences starting 12/23/2020 until 12/23/2020 End: 05-17-2026 CBC W Auto Differential panel - Blood CBC auto differential Lab Routine Morbid obesity (CMS-HCC) 1 Occurrences starting 05/17/2025 until 05/17/2026 [facility] Phone: Comment on above: 1 Occurrences starti ng 05/17/2025 until 05/17/2026 Comprehensive metabo lic 2000 panel - Serum or Plasma [place] Continuous pulse oximetry Pulse oximetry, continuous Respiratory Care Routine Every 4hr until discontinued starting 12/23/2020 [facility] Work Phone: Comment on above: Every 4hr until disc ontinued starting 12/23/2020 End: 03-27-2020 COVID-19 COVID-19 Lab Routine One Time for 1 Occurrences starting 03/27/2020 until 03/27/2020 [facility] [place] Comment on above: One Time for 1 Occur rences starting 03/27/2020 until 03/27/2020 End: 05-17-2026 Cyanocobalamin vitamin b-12 Vitamin B12 Lab Routine Morbid obesity ([facility]) 1 Occurrences starting 05/17/2025 until 05/17/2026 [facility] Comment on above: 1 Occurrences starti ng 05/17/2025 until 05/17/2026 End: 05-17-2026 Hemoglobin A1c/Hemoglobin.total in Blood Hemoglobin A1c Lab Routine Morbid obesity ([facility]) 1 Occurrences starting 05/17/2025 until 05/17/2026 [facility] Comment on above: 1 Occurrences starti ng 05/17/2025 until 05/17/2026 End: 05-17-2026 Iron [Mass/volume] in Serum or Plasma Iron Lab Routine Morbid obesity ([facility]) 1 Occurrences starting 05/17/2025 until 05/17/2026 [facility] Comment on above: 1 Occurrences starti ng 05/17/2025 until 05/17/2026 End: 05-17-2026 Liver panel Liver panel Lab Routine Morbid obesity ([facility]) 1 Occurrences starting 05/17/2025 until 05/17/2026 [facility] Comment on above: 1 Occurrences starti ng 05/17/2025 until 05/17/2026 End: 05-17-2026 Parathyroid Hormone, intact Parathyroid Hormone, intact Lab Routine Morbid obesity ([facility]) 1 Occurrences starting 05/17/2025 until 05/17/2026 [facility] Comment on above: 1 Occurrences starti ng 05/17/2025 until 05/17/2026 Patient referral [facility] Work Phone: End: 08-13-2025 PSG Diagnostic [facility] Routine MUKESH (obstructive sleep apnea) 1 Occurrences starting 08/13/2024 until 08/13/2025 [employer] Work Phone: Comment on above: 1 Occurrences starti ng 08/13/2024 until 08/13/2025 End: 05-27-2026 Pulmonary function test Spirometry (Flow Volume Loop) pre/post short acting bronchodilator w/ DLCO (diffusion study) Pulmonary function test Spirometry (Flow Volume Loop) pre/post short acting bronchodilator w/ DLCO (diffusion study) PFT Routine Intermittent asthma, unspecified asthma severity, unspecified whether complicated 1 Occurrences starting 05/27/2025 until 05/27/2026 [employer] Work Phone: Comment on above: 1 Occurrences starti ng 05/27/2025 until 05/27/2026 Thin Prep Pap Test Thin Prep Pap Test Pathology and Cytology Routine Pap smear, as part of routine gynecological examination Ordered: 05/01/2025 [facility] Comment on above: Ordered: 05/01/2025 End: 05-17-2026 Thyrotropin [Units/volume] in Serum or Plasma TSH Lab Routine Morbid obesity ([facility]) 1 Occurrences starting 05/17/2025 until 05/17/2026 [facility] Comment on above: 1 Occurrences starti ng 05/17/2025 until 05/17/2026 End: 05-17-2026 Vitamin D 25 hydroxy Vitamin D 25 hydroxy Lab Routine Morbid obesity ([facility]) 1 Occurrences starting 05/17/2025 until 05/17/2026 [facility] Comment on above: 1 Occurrences starti ng 05/17/2025 until 05/17/2026 [facility] Immunizations Immunization Date Immunization Notes Care Provider Fa [facility] 08-05-2023 influenza virus vaccine, unspecified formulation Laurent Sierra DPM Work Phone: [facility] 11-26-2020 diphtheria, tetanus toxoids and pertussis vaccine Katherine [facility]oss MD [facility] 07-30-2020 influenza, injectabl e, quadrivalent, preservative free Laurent Sierra DPM Work Phone: [facility] 07-30-2020 influenza virus vaccine, unspecified formulation Laurent Sierra DPM Work Phone: [facility] 06-26-2020 influenza virus vaccine, unspecified formulation Katherine Doss MD Work Phone: [facility] 06-28-2019 influenza, injectabl e, quadrivalent, contains preservative Laurent Sierra DPM Work Phone: [facility] Healthcare Payers Date Payer Category Payer Self-pay 2020 Medicaid (Managed Care) [employer] [id number] 2014 Unknown [facility] HEALTH PLAN [facility] xxxxxxxxxxxx 2014-Present [phone] [place] [id number] xxxxxxxxxxxx [id number] 2003 Medicaid [employer] [id number] 2003-Present [phone] [place] [id number] 2003 Medicaid HMO [employer] [id number] 1985 Unknown [id number] 2.16.840.1.950120.3.579.2. 177 1985 Unknown [id number] 2.16.840.1.222672.3.579.2. 177 1985 Unknown [id number] 2.16.840.1.351307.3.579.2. 175 1985 Unknown [id number] 2.16.840.1.767911.3.579.2. 593 1985 Unknown [id number] 2.16.840.1.159343.3.579.2. 1286 1985 Unknown [id number] 2.16.840.1.971005.3.579.2. 1286 1985 Unknown [id number] 2.16.840.1.528148.3.579.2. 9 1985 Unknown [id number] 2.16.840.1.336099.3.579.2. 9 1985 Unknown [id number] 2.16.840.1.572984.3.579.2. 9 1985 Unknown [id number] 2.16.840.1.427997.3.579.2. 9 1985 Unknown [id number] 2.16.840.1.811259.3.579.2. 1258 1985 Unknown [id number] 2.16.840.1.309045.3.579.2. 9 1985 Unknown [id number] 2.16.840.1.082444.3.579.2. 9 1985 Unknown [id number] 2.16.840.1.881220.3.579.2. 1286 1985 Unknown [id number] 2.16.840.1.782982.3.579.2. 1286 1985 Unknown [id number] 2.16.840.1.748910.3.579.2. 1286 1985 Unknown [id number] 2.16.840.1.759747.3.579.2. 6 1985 Unknown [id number] 2.16.840.1.725523.3.579.2. 8 1985 Unknown [id number] 2.16.840.1.824268.3.579.2. 8 1985 Unknown [id number] 2.16.840.1.055696.3.579.2. 718 1959 Unknown [id number] 1.2.840.549841.1.13.239.2. 7.3.000558.315 Unknown [id number] 2.16.840.1.083528.3.579.2. 531 Social History Date Type Detail Facility Start: 03-31-2020 End: 09-13-2022 Tobacco smoking status NHIS Never smoker [place] Start: 03-31-2020 End: 05-22-2025 Alcohol intake Lifetime non-drinker (finding) [place], [place] Start: 03-31-2020 History SDOH Alcohol Frequency 1 [place], [place] Start: 1985 Sex Assigned At Not on file M [place], [place] Exposure to SARS-CoV -2 (event) Unable to assess [place] Start: 12-22-2020 End: 09-13-2022 Tobacco use and exposure Never used [facility] Phone: Exposure to SARS-CoV -2 (event) Not sure [employer] Phone: Start: 1985 Sex Assigned At Female F [facility] Start: 11-13-2020 End: 04-12-2024 History of Social function [facility] Start: 11-13-2020 End: 04-12-2024 Tobacco use panel [facility] Start: 04-27-2023 Alcohol Comment Caffeine intak e: >4 cups per day pop [facility] Start: 03-06-2024 End: 05-27-2025 Alcoholic beverage intake Current non-drinker of alcohol (finding) [facility] Adolescent depressio n screening assessment 8 [facility] Start: 08-03-2015 Sex Female (finding) [facility] Start: 04-30-2019 Gender identity Identifies as female gender (finding) [facility] Medical Equipment Procedure Code Equipment Code Equipment Original Text Equipment Identifier Dates Kit Lead Sure Scan Interstim Mri [id number] Start: 12-22-2020 Implant Lead-01/05/2021 [id number] Start: 01-05-2021 Neuro Stimulator-01/06/20 [id number] Start: 01-05-2021 Comment on above: Description: interst im II bladder stimulator Clinical Notes 12-12-2023 to 05-27-2025 Katherine Doss MD - 05/27/2025 9:00 AM EDTPatient InstructionsStevmiller Sierra DPM - 05/22/2025 1:30 PM EDTPatient InstructionsTelephone Encounter - Yamilescotty Watson CMA - 05/17/2025 10:15 AM EDT Note Date & Type Note Facility 05-27-2025 History of Presen t illness Narrative Images from the original note were not included. [address] [place] [address] Patient: Nadir Hendrickson Date of : 1985 Encounter Date: 05/27/2025 History of Present Illness: The patient is a 39 y.o. female, is here for follow up of MUKESH. Since our last visit she repeated her home sleep apnea test with her oral mandibular advancement device which showed persistent obstructive sleep apnea as well as seen by the surgical weight loss program. Based on her evaluation in the recommendation was sleeve gastrectomy. BT - 9 pm (listens to phone, dark, in bed, no pets, no bed partner) EUGENE - minutes WASO - 2x to urinate, depends on fluid intake WT - 7-7:45am Nap - sometimes Sleep aids: Current: None Prior: Trazodone 50 mg Quetiapine, 2022 stopped for weight gain Nocturnal behaviors / RLS = vocalizations Non-epileptic events with increased stress. Its been a while Drowsy driving = does not drive Denies any regular cough, shortness of breath or wheeze. No inhalers currently. Takes singular regularly. Hasn't used the symbicort / albuterol in > 1 year. Physical Exam: BP 119/71 (BP Site: Right Forearm, BP Postition: Sitting) Pulse 75 Ht 151.1 cm (4' 11.49 ) Wt 129 kg (284 lb 4.8 oz) SpO2 95% BMI 56.48 kg/m General Appearance - Awake, alert, oriented, in no acute distress 05/27/2025 8:00 AM 11/07/2024 7:17 PM 08/13/2024 2:00 PM 12/12/2023 12:00 PM 04/11/2023 9:00 AM 03/22/2022 8:25 PM 05/14/2019 7:34 PM [place] Sleepiness Scale Sitting and Reading 3 3 1 1 0 0 2 Watching TV 3 3 1 2 3 0 2 Sitting inactive in a public place (theater, meeting) 1 0 0 0 0 0 1 As a passenger in a car for an hour without a break 3 0 0 0 0 0 0 Lying down in the afternoon to rest 3 3 3 3 3 2 3 Sitting and talking to someone 1 0 0 0 0 0 0 Sitting quietly after lunch (without alcohol) 0 3 0 0 0 0 2 In a car, while stopped for a few minutes in traffic 0 0 0 0 0 0 0 Total 14 12 5 6 6 2 10 Assessment: 1. MUKESH (AHI 21.9, minimum saturation 84%, PSG March 2022, weight 273 / Home sleep apnea test on 2024-11-07 with [facility] (ZOLTAN (3%)=52.0 events/hour; ZOLTAN (4%)=40.9 events/hour; John SpO2=71.0%; Rjicai=377.0 lbs; BMI=54.7 kg/m2) 2. Non-epileptic seizures 3. Asthma, mild intermittent, well controlled 4. Chronic sleep maintenance insomnia 5. Obesity, BMI 56 Plan: 1. PFTs and chest xray prior to surgery 2. On to continue off of inhalers 3. Sleep on side 4. Follow up after PFTs/CXR done (ok for virtual) Katherine Doss MD Pulmonary and Sleep Medicine [facility] Past Medical, Family, and Social History Update: The following portions of the patient's history were reviewed and updated as appropriate: allergies, current medications, past family history, past medical history, past social history, past surgical history and problem list. Past Medical History: Diagnosis Date Allergic Arthritis Asthma Back pain Chronic kidney failure Eczema GERD (gastroesophageal reflux disease) HTN (hypertension) Hypothyroid [...] mg tablet 4 (four) times a day. (Patient not taking: Reported on 05/17/2025) cetirizine (ZyrTEC) 10 mg tablet EASY TOUCH ALCOHOL PREP PADS pads, medicated famotidine (PEPCID) 20 mg tablet gabapentin (NEURONTIN) 100 mg capsule Take 1 capsule (100 mg total) by mouth 3 (three) times a day. gabapentin (NEURONTIN) 400 mg capsule 1 capsule (400 mg total). hydroCHLOROthiazide (MICROZIDE) 12.5 mg capsule hydrOXYzine (VISTARIL) 25 mg capsule Take 1 capsule (25 mg total) by mouth as needed in the morning and 1 capsule (25 mg total) as needed at noon and 1 capsule (25 mg total) as needed in the evening. JANUVIA 100 mg tablet Take 1 tablet (100 mg total) by mouth in the morning. levothyroxine (SYNTHROID, LEVOTHROID) 50 MCG tablet lisinopriL (PRINIVIL,ZESTRIL) 2.5 mg tablet montelukast (SINGULAIR) 10 mg tablet Take 1 [...] the morning. SYMBICORT 160-4.5 mcg/actuation inhaler INHALE 2 PUFFS BY MOUTH TWICE DAILY 10.2 g 10 traZODone (DESYREL) 50 mg tablet Take 1 tablet (50 mg total) by mouth nightly. TRULICITY 1.5 mg/0.5 mL pen injector Inject 1.5 mg under the skin once a week. VENTOLIN HFA 90 mcg/actuation inhaler INHALE 2 PUFFS BY MOUTH EVERY 4 TO 6 HOURS NEEDED 18 g 10 VITAMIN D3 [...] Alcohol Use No [facility] 05-27-2025 Instructions Katherine Doss MD - 05/27/2025 9:00 AM EDT 1. PFTs and chest xray prior to surgery 2. On to continue off of inhalers 3. Sleep on side 4. Follow up after PFTs/CXR done (ok for virtual) documented in this encounter [facility] 05-22-2025 History of Presen t illness Narrative Images from the original note were not included. Subjective Patient ID: Nadir Hendrickson is a 39 y.o. female who presents for DM Foot Care (Established patient presents today for routine diabetic nail care. PCP: Lizbeth Snyder LV 01/2025, NV: 05/29/25, A1C: 5.6, BS: hasn't check, doesn't have monitor, SS: 7.5). HPI HPI Chief complaint: Painful ingrown toenail deformity bilateral great toes; again impacting her ability to wear most any shoe comfortably. Problematic/symptomatic over the past several weeks or so; describing pressure discomfort with footwear. Also complains of catching and snagging on clothing, bed sheets etc.. Denies redness, swelling, bleeding or drainage. Attempts [...] Medications: Apple Cider Vinegar 188 MG capsule, , Disp: , Rfl: busPIRone (Buspar) 15 MG tablet, Take 15 mg by mouth Daily, Disp: , Rfl: Calcium Citrate-Vitamin D (Calcium + D) 315-5 MG-MCG tablet, , Disp: , Rfl: cetirizine (ZyrTEC) 10 MG tablet, , Disp: , Rfl: gabapentin (Neurontin) 400 MG capsule, Take 1 capsule (400 mg) by mouth in the morning and 1 capsule (400 mg) in the evening and 1 capsule (400 mg) before bedtime., Disp: 270 capsule, Rfl: 2 hydroCHLOROthiazide (HYDRODiuril) 25 MG tablet, Take 25 mg by mouth Daily, Disp: , Rfl: HYDROcodone-acetaminophen ([place]) 5-325 MG tablet, , Disp: , Rfl: hydrOXYzine pamoate (Vistaril) 25 MG capsule, , Disp: , Rfl: Januvia 100 MG tablet, Take 100 mg by mouth Daily, Disp: , Rfl: levothyroxine (Synthroid, Levoxyl) 50 MCG tablet, , Disp: , Rfl: lisinopril 2.5 MG tablet, , Disp: , Rfl: loperamide (Imodium) 2 MG capsule, , Disp: , Rfl: meloxicam (Mobic) 15 MG tablet, , Disp: , Rfl: montelukast (Singulair) 10 MG tablet, , Disp: , Rfl: omeprazole (PriLOSEC) [address] capsule, , Disp: , Rfl: ondansetron (Zofran) 4 MG tablet, , Disp: , Rfl: oxybutynin XL (Ditropan-XL) 10 MG 24 hr tablet, , Disp: , Rfl: pseudoephedrine ER (Sudafed-12 Hour) 120 MG 12 hr tablet, , Disp: , Rfl: QUEtiapine (SEROquel) 100 MG tablet, , Disp: , Rfl: sertraline (Zoloft) 100 MG tablet, , Disp: , Rfl: SITagliptin (Januvia) 50 MG tablet, Take 100 mg by mouth Daily, Disp: , Rfl: traZODone (Desyrel) 50 MG tablet, Take 50 mg by mouth at bedtime, Disp: , Rfl: Trulicity 0.75 MG/0.5ML solution auto-injector, , Disp: , Rfl: Turmeric powder, , Disp: , Rfl: gabapentin (Neurontin) 100 MG capsule, Take 1 capsule (100 mg) by mouth in the morning and 1 capsule (100 mg) in the evening and 1 capsule (100 mg) before bedtime., Disp: 270 capsule, Rfl: 2 nitrofurantoin, macrocrystal-monohydrate, (Macrobid) 100 MG capsule, TAKE 1 CAPSULE BY MOUTH EVERY 12 HOURS WITH FOOD, Disp: , Rfl: Ozempic, 1 MG/DOSE, 4 MG/3ML solution pen-injector, INJECT 1 UNITS DOSE SUBCUTANEOUSLY ON TUESDAY OF EACH WEEK, Disp: , Rfl: predniSONE (Deltasone) 10 MG tablet, 1 tablet twice daily x 7 days; followed by 1 tablet daily as directed until complete (Patient not taking: Reported on 09/10/2024), Disp: 21 tablet, Rfl: 0 Allergies Metformin, Loratadine, Methylprednisolone, and Oxycodone Past [...] Lor Ferguson Objective General Examination: GENERAL EXAMINATION: Alert and oriented. Pleasant disposition. Wearing Oswlad sandals. Vascular: DORSALIS PEDIS PULSE: 2/4, bilaterally. POSTERIOR [...] inflamed (blanchable), without swelling, bleeding or drainage. 2nd digits bilateral: Toenail dystrophy, crumbly texture, discoloration, without drainage INTERDIGITAL MACERATION: clean, dry, non-inflamed. ULCER: no [...] Laurent Sierra DPM documented in this encounter [facility] 05-22-2025 Instructions Laurent Sierra DPM - 05/22/2025 1:30 PM EDT As noted documented in this encounter [facility] 05-17-2025 Miscellaneous Notes LMOM TO SCHED [facility]ZZ[employer] OPERATOR HELPER PRE OP APPT FOR BARIATRIC SURGERY. PT L/S 09/2021 WITH TMP. documented in this encounter [facility] 05-17-2025 Telephone encounter Note LMOM TO SCHED BUZZSAW OPERATOR HELPER PRE OP APPT FOR BARIATRIC SURGERY. PT L/S 09/2021 WITH TMP. [facility] 05-17-2025 History of Presen t illness Narrative [facility] GENERAL SURGERY [facility] [address] [facility] SURGICAL WEIGHT LOSS PROGRAM INITIAL EVALUATION Patient: Nadir Sorensenhip Service Date: 05/17/2025 HPI: The patient is here to discuss surgical weight loss options. Patient has tried to lose weight by conventional means of diet and physical activity but cannot keep weight off. Patient will begin our dietary evaluation process and psychological evaluation and return to me to discuss sleeve gastrectomy as a tool for weight loss and also is aware that surgery is the last resort for weight loss. Patient also understands the importance of vitamins for life, need of physical activity, behavior education about food and nutritional habits, follow up requirements and participation in our support groups. Benefits, risks and alternatives of sleeve gastrectomy were discussed. Patient has family support and would like to proceed. Chief Complaint Patient presents with New Patient Need MNT 1 of 3 The patient is a 39 y.o. year old female with morbid obesity, who stands Height: 151.1 cm (4' 11.49 ) tall with a weight of Weight: 129.8 kg (286 lb 3.2 oz) , resulting in a BMI of Body mass index is 56.86 kg/m .. The patient suffers from comorbidities as a result of morbid obesity, including: Knee pain, Back pain, GERD, Sleep Apnea, Hypertension, Insulin Resistance, and Diebetes Mellitus Type II. She has suffered from obesity for many years, with their heaviest weight being her current weight. The patient has failed multiple attempts at non-surgical weight loss, and is now seeking surgical intervention to promote permanent and consistent weight loss. She has chosen Robotic Laparoscopic or Open Sleeve Gastrectomy. She is well educated regarding it, as she has recently viewed our weight loss surgery informational seminar. The patient has struggled with her weight most of her life. She was recommended to have surgery due to the severity of her sleep apnea. She struggles to use a CPAP at night because she can not sleep was something on her face. She is at the point where she has to sleep sitting up in a chair. She also has type 2 diabetes, high blood pressure, and multiple other comorbidities. She has a history of a laparoscopic cholecystectomy. She does not use any nicotine products. Medical History: Past Medical History: Diagnosis Date Allergic Arthritis Asthma Back pain Chronic kidney failure Eczema GERD (gastroesophageal reflux disease) HTN (hypertension) Hypothyroid Migraine Panic attack Visual impairment Surgical History: Past Surgical History: Procedure Laterality Date CHOLECYSTECTOMY IMPLANTATION VAGAL NERVE STIMULATOR 2020 Family History: Family History Problem Relation Age of Onset Heart disease Father Emphysema Father Asthma Father Hypertension Father No Known Problems Mother Diabetes Maternal Aunt Breast cancer Neg Hx Colon cancer Neg Hx Ovarian cancer Neg Hx Uterine cancer Neg Hx Social History: Social History Tobacco Use Smoking status: Never Smokeless tobacco: Never Vaping Use Vaping status: Never Used Substance Use Topics Alcohol use: No Drug use: No Current Med List: Current Outpatient Medications: ARIPiprazole (ABILIFY) 10 mg tablet, Take 1 tablet (10 mg total) by mouth in the morning., Disp: , Rfl: atorvastatin (LIPITOR) 20 mg tablet, , Disp: , Rfl: cetirizine (ZyrTEC) 10 mg tablet, , Disp: , Rfl: EASY TOUCH ALCOHOL PREP PADS pads, medicated, , Disp: , Rfl: famotidine (PEPCID) 20 mg tablet, , Disp: , Rfl: gabapentin (NEURONTIN) 100 mg capsule, Take 1 capsule (100 mg total) by mouth 3 (three) times a day., Disp: , Rfl: gabapentin (NEURONTIN) 400 mg capsule, 1 capsule (400 mg total)., Disp: , Rfl: hydroCHLOROthiazide (MICROZIDE) 12.5 mg capsule, , Disp: , Rfl: hydrOXYzine (VISTARIL) 25 mg capsule, Take 1 capsule (25 mg total) by mouth as needed in the morning and 1 capsule (25 mg total) as needed at noon and 1 capsule (25 mg total) as needed in the evening., Disp: , Rfl: JANUVIA 100 mg tablet, Take 1 tablet (100 mg total) by mouth in the morning., Disp: , Rfl: levothyroxine (SYNTHROID, LEVOTHROID) 50 MCG tablet, , Disp: , Rfl: lisinopriL (PRINIVIL,ZESTRIL) 2.5 mg tablet, , Disp: , Rfl: montelukast (SINGULAIR) 10 mg tablet, Take 1 tablet (10 mg total) by mouth nightly., Disp: , Rfl: MYRBETRIQ 50 mg tablet extended release 24 hr, Take 1 tablet (50 mg total) by mouth in the morning., Disp: , Rfl: omeprazole (PriLOSEC) 40 mg capsule, Take 1 capsule (40 mg total) by mouth nightly., Disp: , Rfl: sertraline (ZOLOFT) 100 mg tablet, Take 1 tablet (100 mg total) by mouth in the morning., Disp: , Rfl: SYMBICORT 160-4.5 mcg/actuation inhaler, INHALE 2 PUFFS BY MOUTH TWICE DAILY, Disp: 10.2 g, Rfl: 10 traZODone (DESYREL) 50 mg tablet, Take 1 tablet (50 mg total) by mouth nightly., Disp: , Rfl: TRULICITY 1.5 mg/0.5 mL pen injector, Inject 1.5 mg under the skin once a week., Disp: , Rfl: VENTOLIN HFA 90 mcg/actuation inhaler, INHALE 2 PUFFS BY MOUTH EVERY 4 TO 6 HOURS NEEDED, Disp: 18 g, Rfl: 10 VITAMIN D3 50 mcg (2,000 unit) capsule, Take 1 capsule (2,000 Units total) by mouth in the morning., Disp: , Rfl: busPIRone (BUSPAR) 15 mg tablet, 4 (four) times a day. (Patient not taking: Reported on 05/17/2025), Disp: , Rfl: SOCIAL: This patient is presenting alone for the evaluation today. Their functional status is independent. Comprehension Ability to grasp concepts and respond to questions: [] High [x] Medium [] Low Motivation [x] Asks Questions; eager to learn [x] Needs education [] Extreme anxiety [] uncooperative [] Denies need for education REVIEW OF SYSTEMS: Do you feel sleepy during the day? [x] Yes [] No Do you get short of breath when walking up two flights of stairs? [x] Yes [] No Do you get chest pains when walking up two flights of stairs? [] Yes [x] No Do you suffer from back pain? [x] Yes [] No Do you suffer from knee pain? [x] Yes [] No Do you or have you had any of the following? Cardiovascular YES NO Respiratory YES NO High Blood Pressure [x] [] COPD [] [x] Heart Attack [] [x] TB/Positive skin Test [] [x] Congestive Heart Failure [] [x] Obstructive Sleep Apnea [x] [] Coronary Artery Disease [] [x] Asthma [x] [] Circulation Problems [] [x] Activity Intolerance [x] [] Gastrointestinal YES NO Peripheral Vascular Disease [] [x] Gastric Problems [] [x] Colorectal problems [] [x] Hematological YES NO Ulcer disease [] [x] Bleeding Tendencies [] [x] Liver disease [] [x] Blood Transfusion last 30d [] [x] Gallstones [] [] Anemia [] [x] Refulx or Heartburn [x] [x] Blood Clots [] [x] High Cholesterol [x] [] Muscoloskeletal YES NO High Triglycerides [] [x] Joint Limitations [] [x] Muscle Weakness [] [x] Eyes, Ears, Nose, Throat YES NO Multiple Sclerosis [] [x] Cataracts [] [x] Arthritis [x] [] Glasses [] [x] Blurred Vision [] [x] Cancer [] [x] Hearing Aids [] [x] Type: Ringing in Ears [] [x] Difficulty Swallowing [] [x] Encodrine YES NO Diabetes [] [x] Neurological YES NO Thyroid [] [x] Stroke [] [x] Seizure [] [x] Psychiatric Disorder YES NO Dizziness/Blackouts/Fainting [] [x] Depression [] [x] Memory Impairement [] [x] Bipolar [] [x] Parkinson's [] [x] Anxiety disorder [x] [] Genitourinary/Inbound Telemarketer YES NO Skin Intact [x] [] Urinary Infection [] [x] Stones [] [x] Sleep YES NO Kidney Disease [] [x] Excessive daytime sleepiness [x] [] Incontinent [] [x] Snoring [x] [] Irregular menstrual cycles [] [] Unrefreshed sleep [x] [] Possibly ? [] [] Other: Date of LMP: Preferred location: PREVIOUS ANESTHESIA Has any family member had a problem with anesthesia in the past? [x] No [] Yes If yes, describe: Have you had a problem with anesthesia in the past? [x] No [] Yes If yes, describe: Do you have any difficulty moving your head [id number]? [x] No [] Yes Do you have difficulty opening or closing your jaw? [x] No [] Yes PRESENT ILLNESS: Weight Parameters Initial Bariatric Consult 05/17/2025 Weight: 129.8 kg (286 lb 3.2 oz) Height: 151.1 cm (4' 11.49 ) Body mass index is 56.86 kg/m . IMMUNIZATION STATUS Immunization History Administered Date(s) Administered COVID-19, mRNA, LNP-S, PF, 30mcg/0.3mL Dose 02/05/2021, 02/26/2021 DTP 11/26/2020 FALLS ASSESSMENT [x] LOW RISK FOR FALLS [] MODERATE RISK FOR FALLS [] Difficulty walking/selfcare [] Falls in the past 2 months [] Suspicion of Clinician [] Other: SMOKING CESSATION [x] Not needed [] Instructed to stop smoking [] Referred to [facility] Nicotine cessation program VTE SCREEN [] Family hx DVT/PE / [] Personal hx of DVT/PE [x] Denies any family or personal hx of DVT/PE Physician Review [x] Past medical, family, & social history reviewed and discussed with patient. Review of surgery and post-surgical changes (by surgeon for surgical patients only) [x] Lifelong diet expectations reviewed with patient [x] Need for lifelong vitamin supplementation reviewed with patient [x] Physical activity [x] Portion control PHYSICAL EXAMINATION: BP 111/68 Pulse 78 Ht 151.1 cm (4' 11.49 ) Wt 129.8 kg (286 lb 3.2 oz) BMI 56.86 kg/m General Appearance: Alert, cooperative, no distress, appears stated age Head: Normocephalic, without obvious abnormality, atraumatic Eyes: No scleral icterus Ears: Normal external ear, both ears Nose: Nares normal, septum midline Throat: Lips, mucosa normal Neck: Supple, symmetrical, trachea midline Lungs: Respirations unlabored Chest Wall: No tenderness or deformity Heart: Regular rate Breast Exam: Deferred. Abdomen: Soft, non-tender, nondistended, lap sites well healed, no palpable hernia Genitalia: Deferred. Rectal: Deferred. Extremities: Extremities normal, atraumatic, no cyanosis or edema Skin: Skin color, texture, turgor normal, no rashes or lesions Neurologic: communication arts lecturer intact, normal strength. Alert and oriented. Follows commands and moves all 4. BP 111/68 Pulse 78 Ht 151.1 cm (4' 11.49 ) Wt 129.8 kg (286 lb 3.2 oz) BMI 56.86 kg/m Physical Exam RECOMMENDATIONS: We spent a great deal of time discussing the risks and benefits of Robotic Laparoscopic or Open Sleeve Gastrectomy, and we discussed the need for post-operative visit compliance, behavior modifications and diet changes, protein and vitamin supplementation, as well as routine scheduled and dedicated exercise. We discussed the potential weight loss benefit of approximately 60-70% of her excess body weight at 12-18 months post-op, as well as the possibility of insufficient weight loss or weight gain after 2 years post-operative time. Upon completion of all required pre-operative testing we will submit for insurance pre-authorization. PLAN: Assessment No diagnosis found. Plan Initial Testing Procedure: Sleeve gastrectomy Imaging: Upper GI Psychological Assessment: Psychological Evaluation and Clearance Nutrition Assessment: Bariatric Nutrition Assessment and Clearance Other Consultations: PCP, Cardiology, pulmonology Final Testing Screening Chest Xray and EKG at PAT appointment Labwork: Final Lab Tests at [facility] appointment Please note that this chart was generated using voice recognition [employer] dictation software. Although every effort was made to ensure the accuracy of this automated support director, some errors in support director may have occurred. documented in this encounter [facility] 05-01-2025 History of Presen t illness Narrative Annual Well Woman Visit 05/01/2025 Rossi Hendrickson is a pleasant 39 y.o. female who presents for annual speech and language tutor exam. Periods are rare due to the Liletta IUD. Dysmenorrhea: none. Cyclic symptoms include none. Denies intermenstrual bleeding, spotting, or abnormal discharge. Denies pelvic pain. Patient declines STD testing today. Complaints today: none Relationship status: in a relationship The patient reports that there is not domestic violence in her life. Sexually active: No Non-smoker Children YES How many One vaginal delivery Current contraception: IUD History of abnormal Pap smear: no Last pap: 06/10/2020- negative with negative hpv Regular self breast exam: yes Last mammogram: n/a Family history of breast cancer: no Family history of uterine or ovarian cancer: no Family history of pancreatic or prostate cancer: no Family history of colon cancer: no HPV vaccinated: no PHQ9 depression screenin OB History 1 Para 1 Term 1 [...] Arthritis Asthma Back pain Chronic kidney failure Eczema GERD (gastroesophageal reflux disease) HTN (hypertension) Hypothyroid [...] Current Outpatient Medications Medication Sig Dispense Refill atorvastatin (LIPITOR) 20 mg tablet cetirizine (ZyrTEC) 10 mg tablet EASY TOUCH ALCOHOL PREP PADS pads, medicated famotidine (PEPCID) 20 mg tablet gabapentin (NEURONTIN) 100 mg capsule Take 1 capsule (100 mg total) by mouth 3 (three) times a day. gabapentin (NEURONTIN) 400 mg capsule 1 capsule (400 mg total). hydroCHLOROthiazide (MICROZIDE) 12.5 mg capsule hydrOXYzine (VISTARIL) 25 mg capsule Take 1 capsule (25 mg total) by mouth as needed in the morning and 1 capsule (25 mg total) as needed at noon and 1 capsule (25 mg total) as needed in the evening. JANUVIA 100 mg tablet Take 1 tablet (100 mg total) by mouth in the morning. levothyroxine (SYNTHROID, LEVOTHROID) 50 MCG tablet lisinopriL (PRINIVIL,ZESTRIL) 2.5 mg tablet montelukast (SINGULAIR) 10 mg tablet Take 1 [...] the morning. SYMBICORT 160-4.5 mcg/actuation inhaler INHALE 2 PUFFS BY MOUTH TWICE DAILY 10.2 g 10 traZODone (DESYREL) 50 mg tablet Take 1 tablet (50 mg total) by mouth nightly. VITAMIN D3 50 mcg (2,000 unit) capsule Take 1 capsule (2,000 Units total) by mouth in the morning. ARIPiprazole (ABILIFY) 10 mg tablet Take 1 tablet (10 mg total) by mouth in the morning. (Patient not taking: Reported on 05/01/2025) busPIRone (BUSPAR) 15 mg tablet 4 (four) times a day. (Patient not taking: Reported on 05/01/2025) VENTOLIN HFA 90 mcg/actuation inhaler INHALE 2 PUFFS BY MOUTH EVERY 4 TO 6 HOURS NEEDED (Patient not taking: Reported on 05/01/2025) 18 g 10 No current facility-administered medications for this visit. ALLERGIES Allergies Allergen Reactions Claritin [Loratadine] Methylprednisolone Hives Oxycodone Metformin Diarrhea Review of Systems Constitutional: Negative. Respiratory: Negative. Negative for chest tightness and shortness of breath. Cardiovascular: Negative. Negative for chest pain and palpitations. Gastrointestinal: Negative. Negative for constipation, diarrhea, nausea and vomiting. Endocrine: Negative. Genitourinary: Negative. Negative for menstrual problem and pelvic pain. Musculoskeletal: Negative. Skin: Negative. Allergic/Immunologic: Negative. Neurological: Negative. Hematological: Negative. Psychiatric/Behavioral: Negative. Objective BP (!) 132/94 Ht 149.9 cm (4' 11 ) Wt 129.9 kg (286 lb 6.4 oz) BMI 57.85 kg/m Physical Exam Vitals and nursing note [...] or lesion. Vagina: Normal. Cervix: Normal. Uterus: Normal. Not enlarged and not tender. Adnexa: Right adnexa normal and left adnexa normal. Right: No mass, tenderness or fullness. Left: No mass, tenderness or fullness. Comments: IUD strings noted at cervical os Musculoskeletal: General: Normal range of motion. Cervical back: Normal range of motion and neck supple. Skin: General: Skin is warm and dry. Neurological: Mental Status: She is alert and oriented to person, place, and time. Psychiatric: Mood and Affect: Mood normal. Speech: Speech normal. Behavior: Behavior normal. Thought Content: Thought content normal. Judgment: Judgment normal. Assessment/Plan: Nadir was seen today for gynecologic exam. Diagnoses and all orders for this visit: Well woman exam with routine gynecological exam Encounter for screening mammogram for malignant neoplasm of breast - Mammography screening bilateral with CAD; Future Standardized adult depression screening tool completed Pap smear, as part of routine gynecological examination - Thin Prep Pap Test BMI is above average; Discussed eating tips for weight loss and and exercise steps. Recommend breast self-awareness. Notify provider for any breast changes or concerns Discussed healthy lifestyle modifications. Educational material distributed. Follow up in 1 year for annual speech and language tutor exam. Follow up as needed. Await pap. Discussed ASCCP screening guidelines. Discussed taking a multivitamin. Discussed Calcium and Vitamin D for prevention of osteoporosis. Discussed recommendations for HPV vaccine between 9-45 yo. [facility]. Discussed need for yearly mammogram after 40 yo. Order placed. Discussed colon cancer screening recommendations to begin at 45 yo, patient to discuss with PCP. All questions answered. EUGENE Santamaria APRN-CNP Lisa M Krotzer, APRN-CNP 05/01/25 0945 documented in this encounter [facility] 01-25-2025 Miscellaneous Notes Patient cancelled 01/28 appointment via Airstone[employer]. Supervisor [employer] called and left voicemail for patient to call office to reschedule appointment. documented in this encounter [facility] 01-25-2025 Telephone encounter Note Patient cancelled 01/28 appointment via mychart. Supervisor [employer] called and left voicemail for patient to call office to reschedule appointment. [facility] 01-16-2025 History of Presen t illness Narrative Images from the original note were not included. Subjective Nadir Hendrickson is a 39 y.o. year old female Chief Complaint Patient presents with Peripheral Neuropathy Past Medical History: Diagnosis Date Abnormal EKG Anxiety Since childhood Asthma Bradycardia Depression (CMS/HCC) Edema Essential hypertension (CMS/HCC) [...] pop Medication Documentation Review Audit Reviewed by Beatrice Marr MA (Emergency Department Manager) on 01/16/25 at 1502 Medication Order Taking? Sig Documenting Provider Last Dose Status Apple Cider Vinegar 188 MG capsule [id number] No Apple Cider Vinegar Historical Provider, Taking Active busPIRone (Buspar) 15 MG tablet [id number] No Take 15 mg by mouth Daily Historical Provider, Taking Active Calcium Citrate-Vitamin D (Calcium + D) 315-5 MG-MCG tablet [id number] No Calcium + D Historical Provider, Taking Active cetirizine (ZyrTEC) 10 MG tablet [id number] No Historical Provider, Taking Active Discontinued 01/14/25 1421 gabapentin (Neurontin) 100 MG capsule [id number] TAKE 1 CAPSULE BY MOUTH THREE TIMES DAILY (IN THE MORNING, IN THE EVENING and BEFORE bedtime) TAKE WITH the 400mg MAYCOL Eubanks Active gabapentin (Neurontin) 400 MG capsule [id number] Take 1 capsule (400 mg) by mouth in the morning and 1 capsule (400 mg) in the evening and 1 capsule (400 mg) before bedtime. Nallely Pichardo NP Active hydroCHLOROthiazide (HYDRODiuril) 25 MG tablet [id number] No Take 25 mg by mouth Daily Historical Provider, Taking Active HYDROcodone-acetaminophen ([place]) 5-325 MG tablet [id number] No Historical Provider, Taking Active hydrOXYzine pamoate (Vistaril) 25 MG capsule [id number] No TAKE 1 CAPSULE BY MOUTH TWICE PER DAY NEEDED Historical Provider, Taking Active Januvia 100 MG tablet [id number] No Take 100 mg by mouth Daily Laurent Sierra DPM Taking Active levothyroxine (Synthroid, Levoxyl) 50 MCG tablet [id number] No Historical Provider, Taking Active lisinopril 2.5 MG tablet [id number] No Historical Provider, Taking Active loperamide (Imodium) 2 MG capsule [id number] No take 1 capsule by mouth if needed AFTER EACH LOOSE STOOL NOT TO EXCEED 8 CAPSULES PER DAY Historical Provider, Taking Active meloxicam (Mobic) 15 MG tablet [id number] No take 1 tablet by mouth once daily with food if needed for DISCOMFORT Historical Provider, Taking Active montelukast (Singulair) 10 MG tablet [id number] No Historical Provider, Taking Active nitrofurantoin, macrocrystal-monohydrate, (Macrobid) 100 MG capsule [id number] TAKE 1 CAPSULE BY MOUTH EVERY 12 HOURS WITH FOOD Historical Provider, Active omeprazole (PriLOSEC) [address] capsule [id number] No Historical Provider, Taking Active ondansetron (Zofran) 4 MG tablet [id number] No Historical Provider, Taking Active oxybutynin XL (Ditropan-XL) 10 MG 24 hr tablet [id number] No Historical Provider, Taking Active Ozempic, 1 MG/DOSE, 4 MG/3ML solution pen-injector [id number] No INJECT 1 UNITS DOSE SUBCUTANEOUSLY ON TUESDAY OF EACH WEEK Historical Provider, Taking Active predniSONE (Deltasone) 10 MG tablet [id number] 1 tablet twice daily x 7 days; followed by 1 tablet daily as directed until complete Patient not taking: Reported on 09/10/2024 Laurent Sierra DPM Active pseudoephedrine ER (Sudafed-12 Hour) 120 MG 12 hr tablet [id number] No Patient not taking: Reported on 09/10/2024 Historical Provider, Taking Active QUEtiapine (SEROquel) 100 MG tablet [id number] No Historical Provider, Taking Active sertraline (Zoloft) 100 MG tablet [id number] No Historical Provider, Taking Active SITagliptin (Januvia) 50 MG tablet [id number] No Take 100 mg by mouth in the morning. Laurent Sierra DPM Taking Active traZODone (Desyrel) 50 MG tablet [id number] No Take 50 mg by mouth at bedtime. Historical Provider, Taking Active Trulicity 0.75 MG/0.5ML solution auto-injector [id number] INJECT 0.5ml SUBCUTANEOUSLY (UNDER THE SKIN) ONCE A WEEK Laurent Sierra DPM Active Turmeric powder [id number] No as directed Historical Provider, Taking Active HPI NEUROPATHY -On Gabapentin 500 mg TID -She states medication helps, symptoms less frequent and less intense with increase -Symptoms primarily affect her feet and hands bilaterally, right worse than left. -she still has some pins and needle feeling mostly in her right thigh -She admits burning sensation in the right upper thigh. -She admits some gait instability but denies any falls. -She denies any weakness. -She denies any back or neck pain. -she denies any other issues or concern ROS Review of Systems Constitutional: Negative for [...] for cold intolerance. Objective Visit Vitals BP 128/80 (BP Location: Left arm, Patient Position: Sitting) Ht 4' 11 Wt 288 lb BMI 58.17 kg/m Smoking Status Never BSA 2.34 m GENERAL Apical RRR, no murmur Neurological [...] Kt's present. Crossed adductor present. Coordination Right: [id number] normal. Rapid alternating movement normal.Left: Lyzyjp-kn-oigk normal. Rapid alternating movement normal. Gait Casual gait is normal including stance, stride, and arm swing. 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 LUE Strength deltoid, biceps, triceps, wrist extensors, wrist extensors, wrist flexor, solder making laborer strength 5/5. RLE Strength illopsoas, quadriceps, tibialis [...] well to gabapentin but her symptoms persist. Her gabapentin was adjusted and she has improved symptoms. MRI lumbar spine 12/31/24 revealed no significant central or foraminal stenosis. There was no disc space narrowing. Diagnoses and all orders for this visit: Polyneuropathy - gabapentin (Neurontin) 400 MG capsule; Take 1 capsule (400 mg) by mouth in the morning and 1 capsule (400 mg) in the evening and 1 capsule (400 mg) before bedtime. Paresthesia - gabapentin (Neurontin) 100 MG capsule; Take 1 capsule (100 mg) by mouth in the morning and 1 capsule (100 mg) in the evening and 1 capsule (100 mg) before bedtime. PLAN: MRI Lumbar spine reviewed with the patient. Continue gabapentin 500mg PO TID for neuropathic pain. OARRS reviewed. I counseled the patient on fall precautions. I discussed the high risk of trauma and debility associated with falls. Patient verbalized understanding. Follow up in 4-6 months documented in this encounter [facility] 11-23-2024 Miscellaneous Notes Katherine Doss MD at 11/23/24921 Status: Signed Patient needs follow up appointment scheduled. Please let her know that she should call her dentist to see if they can up-titrate her OMAD to help treat her residual MUKESH Home sleep apnea test on 2024-11-07 with OMAD (ZOLTAN (3%)=52.0 events/hour; ZOLTAN (4%)=40.9 events/hour; John SpO2=71.0%; Vtldlk=686.0 lbs; BMI=54.7 kg/m2) DIAGNOSIS: Obstructive Sleep Apnea (G47.33) COMMENTS: With the oral mandibular device in lateral sleep there was still significant flow obstruction independent of body position. TREATMENT CONSIDERATIONS: Consider up titrating OMAD device with dentistry. If no room for uptitration, consider transition back to PAP therapy. documented in this encounter [facility] 11-23-2024 Telephone encounter Note Katherine Doss MD at 11/23/24921 Status: Signed Patient needs follow up appointment scheduled. Please let her know that she should call her dentist to see if they can up-titrate her OMAD to help treat her residual MUKESH Home sleep apnea test on 2024-11-07 with OMAD (ZOLTAN (3%)=52.0 events/hour; ZOLTAN (4%)=40.9 events/hour; John SpO2=71.0%; Esfnld=076.0 lbs; BMI=54.7 kg/m2) DIAGNOSIS: Obstructive Sleep Apnea (G47.33) COMMENTS: With the oral mandibular device in lateral sleep there was still significant flow obstruction independent of body position. TREATMENT CONSIDERATIONS: Consider up titrating OMAD device with dentistry. If no room for uptitration, consider transition back [facility] History of Presen t illness Narrative Patient needs follow up appointment scheduled. Please let her know that she should call her dentist to see if they can up-titrate her OMAD to help treat her residual MUKESH Home sleep apnea test on 2024-11-07 with OMAD (ZOLTAN (3%)=52.0 events/hour; ZOLTAN (4%)=40.9 events/hour; John SpO2=71.0%; Gxpegb=293.0 lbs; BMI=54.7 kg/m2) DIAGNOSIS: Obstructive Sleep Apnea (G47.33) COMMENTS: With the oral mandibular device in lateral sleep there was still significant flow obstruction independent of body position. TREATMENT CONSIDERATIONS: Consider up titrating OMAD device with dentistry. If no room for uptitration, consider transition back to PAP therapy. [facility] 09-10-2024 History of Presen t illness [...] Review Audit Reviewed by Barb Devries MA (Emergency Department Manager) on 09/10/24 at 0908 Medication Order Taking? Sig Documenting Provider Last Dose Status Apple Cider Vinegar 188 MG capsule [id number] No Apple Cider Vinegar Historical Provider, Taking Active busPIRone (Buspar) 15 MG tablet [id number] No Take 15 mg by mouth Daily Historical Provider, Taking Active Calcium Citrate-Vitamin D (Calcium + D) 315-5 MG-MCG tablet [id number] No Calcium + D Historical Provider, Taking Active cetirizine (ZyrTEC) 10 MG tablet [id number] No Historical Provider, Taking Active gabapentin (Neurontin) 400 MG capsule [id number] Take 1 capsule (400 mg) by mouth in the morning and 1 capsule (400 mg) in the evening and 1 capsule (400 mg) before bedtime. Nallely Pichardo, CHRISTINE Active hydroCHLOROthiazide (HYDRODiuril) 25 MG tablet [id number] No Take 25 mg by mouth Daily Historical Provider, Taking Active HYDROcodone-acetaminophen ([place]) 5-325 MG tablet [id number] No Historical Provider, Taking Active hydrOXYzine pamoate (Vistaril) 25 MG capsule [id number] No TAKE 1 CAPSULE BY MOUTH TWICE PER DAY NEEDED Historical Provider, Taking Active Januvia 100 MG tablet [id number] No Take 100 mg by mouth Daily Laurent Sierra DPM Taking Active levothyroxine (Synthroid, Levoxyl) 50 MCG tablet [id number] No Historical Provider, Taking Active lisinopril 2.5 MG tablet [id number] No Historical Provider, Taking Active loperamide (Imodium) 2 MG capsule [id number] No take 1 capsule by mouth if needed AFTER EACH LOOSE STOOL NOT TO EXCEED 8 CAPSULES PER DAY Historical Provider, Taking Active meloxicam (Mobic) 15 MG tablet [id number] No take 1 tablet by mouth once daily with food if needed for DISCOMFORT Historical Provider, Taking Active montelukast (Singulair) 10 MG tablet [id number] No Historical Provider, Taking Active nitrofurantoin, macrocrystal-monohydrate, (Macrobid) 100 MG capsule [id number] TAKE 1 CAPSULE BY MOUTH EVERY 12 HOURS WITH FOOD Historical Provider, Active omeprazole (PriLOSEC) [address] capsule [id number] No Historical Provider, Taking Active ondansetron (Zofran) 4 MG tablet [id number] No Historical Provider, Taking Active oxybutynin XL (Ditropan-XL) 10 MG 24 hr tablet [id number] No Historical Provider, Taking Active Ozempic, 1 MG/DOSE, 4 MG/3ML solution pen-injector [id number] No INJECT 1 UNITS DOSE SUBCUTANEOUSLY ON TUESDAY OF EACH WEEK Historical Provider, Taking Active predniSONE (Deltasone) 10 MG tablet [id number] 1 tablet twice daily x 7 days; followed by 1 tablet daily as directed until complete Patient not taking: Reported on 09/10/2024 Laurent Sierra DPM Active pseudoephedrine ER (Sudafed-12 Hour) 120 MG 12 hr tablet [id number] No Patient not taking: Reported on 09/10/2024 Historical Provider, Taking Active QUEtiapine (SEROquel) 100 MG tablet [id number] No Historical Provider, Taking Active sertraline (Zoloft) 100 MG tablet [id number] No Historical Provider, Taking Active SITagliptin (Januvia) 50 MG tablet [id number] No Take 100 mg by mouth in the morning. Laurent Sierra DPM Taking Active traZODone (Desyrel) 50 MG tablet [id number] No Take 50 mg by mouth at bedtime. Historical Provider, Taking Active Trulicity 0.75 MG/0.5ML solution auto-injector [id number] INJECT 0.5ml SUBCUTANEOUSLY (UNDER THE SKIN) ONCE A WEEK Laurent Sierra DPM Active Turmeric powder [id number] No as directed Historical Provider, Taking Active [...] Kt's present. Crossed adductor present. Coordination Right: Yvrqgf-td-dknb normal. Rapid alternating movement normal.Left: Hxjluh-ve-qius normal. Rapid alternating movement normal. Gait Casual gait is normal including stance, stride, and arm swing. 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 LUE Strength deltoid, biceps, triceps, wrist extensors, wrist extensors, wrist flexor, solder making laborer strength 5/5. RLE Strength illopsoas, quadriceps, tibialis [...] in 6-8 weeks documented in this encounter [facility] 08-15-2024 Miscellaneous Notes 08/15 HST order received Called PT LM to schedule sleep study. HST order & 08/13 Jose notes in [facility] With oral appliance PT called to schedule [...] test. Order deferred documented in this encounter [facility] 08-15-2024 Telephone encounter Note 08/15 HST order received Called PT LM to schedule sleep study. HST order & 08/13 Jose notes in [facility] With oral appliance [facility] 08-15-2024 Telephone encounter Note PT called to schedule PT states she does not drive and has a hard time getting a ride to the hospital, asked if she could get it mailed to her I informed the PT we do not mail the units out. She is going to wait until next month when she does a different test. Order deferred [facility] 08-14-2024 Miscellaneous Notes 08/13 Order received Called PT LM to schedule sleep study. PSG Order and 08/13 Jose notes in [facility] With OMAD (does not need titration), ok to sleep on side documented in this encounter [facility] 08-14-2024 Telephone encounter Note 08/13 Order received Called PT LM to schedule sleep study. PSG Order and 08/13 Jose notes in [facility] With OMAD (does not need titration), ok to sleep on side [facility] 08-13-2024 History of Presen t illness Narrative Images from the original note were not included. [address] [place] [address] Patient: Nadir Hendrickson Date of : 1985 [...] AM 12/12/2023 12:00 PM 08/13/2024 2:00 PM [place] Sleepiness Scale Sitting and Reading 2 0 [...] Alcohol Use No documented in this encounter [facility] 08-13-2024 Instructions Katherine Doss MD - 08/13/2024 2:30 PM EST 1. PSG with OMAD with side sleep 2. Please call Dr. Abreu to let him know you're snoring with the OMAD in 3. Symbicort as needed 4. Follow up in 6 months documented in this encounter [facility] 07-20-2024 History of Presen t illness Narrative [...] by mouth Daily, Disp: , Rfl: HYDROcodone-acetaminophen ([place]) 5-325 MG tablet, , Disp: , Rfl: [...] Laurent Sierra DPM documented in this encounter [facility] 07-20-2024 Instructions Laurent Sierra DPM - 07/20/2024 9:30 AM EDT As noted documented in this encounter [facility] 07-18-2024 History of Presen t illness Narrative [...] by mouth Daily, Disp: , Rfl: HYDROcodone-acetaminophen ([place]) 5-325 MG tablet, , Disp: , Rfl: [...] Laurent Sierra DPM documented in this encounter [facility] 07-18-2024 Instructions Laurent Sierra DPM - 07/18/2024 2:15 PM EDT As noted documented in this encounter [facility] 05-28-2024 Miscellaneous Notes Summary: Surgery Time Change Supervisor Photocomposition sent message to patient that her surgery on 07/16/2024 @ [facility] has a time change. Arrival: 9:30 AM Surgery: 11:30 AM documented in this encounter [facility] 05-28-2024 Telephone encounter Note Summary: Surgery Time Change Supervisor Photocomposition sent message to patient that her surgery on 07/16/2024 @ [facility] has a time change. Arrival: 9:30 AM Surgery: 11:30 AM [facility] 04-24-2024 Miscellaneous Notes Summary: New Surgery Date Supervisor Photocomposition rescheduled procedure to 07/16/2024 @ [facility] with Dr Pina; PAT appt also rescheduled... updated surgery letter sent to patient thru My Chart and by mail.. surgeon informed of date and time. documented in this encounter [facility] 04-24-2024 Telephone encounter Note Summary: New Surgery Date Supervisor Photocomposition rescheduled procedure to 07/16/2024 @ [facility] with Dr Pina; PAT appt also rescheduled... updated surgery letter sent to patient thru My Chart and by mail.. surgeon informed of date and time. [facility] 03-29-2024 Miscellaneous Notes Summary: New Surgery Date Supervisor Photocomposition rescheduled patient's surgery date to 06/11/2024 @ [facility] [address] Pina... PAT appt also rescheduled... updated letter sent to patient thru My Chart and by mail documented in this encounter [facility] 03-29-2024 Telephone encounter Note Summary: New Surgery Date Supervisor Photocomposition rescheduled patient's surgery date to 06/11/2024 @ [facility] [address] Pina... PAT appt also rescheduled... updated letter sent to patient thru My Chart and by mail [facility] 03-20-2024 Miscellaneous Notes Summary: Surgery 05/14/2024 Supervisor Photocomposition scheduled patient for 05/14/2024 @ [facility] (due to BMI) with Dr Pina.. PAT phone call also scheduled... surgeon informed of date and time... surgery letter sent thru My Chart and by mail.. all documents scanned into chart. *Patient also reminded to schedule medical clearance with PCP documented in this encounter [facility] 03-20-2024 Telephone encounter Note Summary: Surgery 05/14/2024 Supervisor Photocomposition scheduled patient for 05/14/2024 @ [facility] (due to BMI) with Dr Pina.. PAT phone call also scheduled... surgeon informed of date and time... surgery letter sent thru My Chart and by mail.. all documents scanned into chart. *Patient also reminded to schedule medical clearance with PCP [facility] 03-06-2024 History of Presen t illness Narrative Images from the original note were not included. Chief Complaint: Contraception SUBJECTIVE HPI Nadir Hendrickson is a 38 y.o. who presents to discuss sterilization. Patient reports her is getting out of alf this year and she would like peace [...] in place. Patient Name: Nadir Hendrickson : [id number] Age: 38 y.o. Patient Contact Number: [phone] Diagnosis: Desire for sterilization Procedure:Laparoscopic salpingectomy ASA level: III Physician: Dr. Pina Outpatient Pre op appt? Yes Medical Clearance? Yes Specialty? PCP Mikayla Barclay MD Patient scheduled for May 14. 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 Obesity, morbid, BMI 50 or higher ([facility]) 3. Type 2 diabetes mellitus with diabetic polyneuropathy, without long-term current use of insulin ([facility]) 4. Chronic ulcer of right midfoot limited to breakdown of skin ([facility]) 5. Psychogenic nonepileptic seizure 6. Moderate recurrent major depression ([facility]) 7. Shortness of breath 8. Learning disability [...] patient's multiple medical comorbidities 3. Referral to [facility] for [facility] Services placed secondary to the above 40 minutes was spent in the room discussing surgical procedures patient's medical health and risk of the elective surgery with patient as well as reviewing her chart placing consults and completing the charting documented in this encounter [facility] 02-06-2024 History of Presen t illness Narrative Annual Well Woman Visit 02/06/2024 Rossi Hendrickson is a 38 y.o. female who presents for annual speech and language tutor exam. Periods are rare due to IUD. [...] Follow up in 1 year for annual speech and language tutor exam. Medicaid tubal consent signed today. RTO with a physician for consult. Next pap due 2024 per ASCCP guidelines. Discussed taking a multivitamin. Discussed Calcium and Vitamin D for prevention of osteoporosis. Discussed recommendations for HPV vaccine between 9-45 yo. Can be received at [employer] or the health department. Discussed need for yearly mammogram after 40 yo. Discussed colon cancer screening recommendations to begin at 45 yo, patient to discuss with PCP. All questions answered. EFE CORONEL APRN-CNP Lisa M Franco, APRN-CNP 02/06/24 0902 documented in this encounter [facility] 12-12-2023 History of Presen t illness Narrative Images from the original note were not included. [address] [place] [address] Patient: Nadir Hendrickson Date of : 1985 Encounter Date: 12/12/2023 History of Present Illness: The patient is a 38 y.o. female, is here for follow up of MUEKSH. She is here today unaccompanied. Since our [...] PM 03/22/2022 8:25 PM 04/11/2023 9:00 AM [place] Sleepiness Scale Sitting and Reading 2 0 [...] Alcohol Use No documented in this encounter [facility] 12-12-2023 Instructions Katherine Doss MD - 12/12/2023 12:15 PM EDT 1. Dentist to fit for oral mandibular advancement device (OMAD) 2. Continue to work on weight loss 3. Discussion about inspire, not a candidate at this time 4. Follow up in 6 months documented in this encounter [facility] Evaluation note Diagnosis Onset Date Anxiety acute Asthma acute Depression acute [id number] acute Hyperlipidemia acute Hypertension acute MUKESH (obstructive sleep apnea) acute Pain with urination acute Seasonal allergies acute Thyroid disease acute Type 2 diabetes mellitus acu te [id number] acute Neuropathic pain of right thigh acute Type 2 diabetes mellitus acu te UTI (urinary tract infection) acute [facility] Work Phone: Evaluation note* Diagnosis Dystrophic nail- Primary Other specified disease of nail Onychocryptosis Ingrowing nail Pain around toenail, right foot Pain around toenail, left foot documented in this encounter [facility]* Diagnosis Capsulitis of right foot- Primary Sprain of ligament of tarsometatarsal joint of right foot, sequela Pain in joint of right foot Difficulty walking Difficulty in walking documented in this encounter [facility]* Diagnosis MUKESH (obstructive sleep apnea)- Primary Obstructive sleep apnea (adult) (pediatric) [facility] Diagnosis Paresthesia Disturbance of skin sensation documented in this encounter [facility]* Diagnosis Paresthesia- Primary Disturbance of skin sensation documented in this encounter [facility]* Diagnosis Moderate persistent asthma, unspecified whether complicated [facility] Diagnosis MUKESH (obstructive sleep apnea) Obstructive sleep apnea (adult) (pediatric) [facility] Diagnosis Well woman exam with routine gynecological exam- Primary Routine gynecological examination Standardized adult depression screening tool completed Request for sterilization [facility] Diagnosis Moderate persistent asthma, unspecified whether complicated [facility] Diagnosis Request for sterilization- Primary Obesity, morbid, BMI 50 or higher ([facility]) Type 2 diabetes mellitus with diabetic polyneuropathy, without long-term current use of insulin ([facility]) Chronic ulcer of right midfoot limited to breakdown of skin ([facility]) Psychogenic nonepileptic seizure Moderate recurrent major depression ([facility]) Major depressive disorder, recurrent episode, moderate Shortness of breath Learning disability Other specific developmental learning difficulties Primary hypertension Unspecified essential hypertension Asthma, unspecified asthma severity, unspecified whether complicated, unspecified whether persistent [facility]-op exam [facility] Diagnosis Preoperative exam for gynecologic surgery- Primary Obesity, morbid, BMI 50 or higher ([facility]) Type 2 diabetes mellitus with diabetic polyneuropathy, without long-term current use of insulin ([facility]) Chronic ulcer of right midfoot limited to breakdown of skin ([facility]) Psychogenic nonepileptic seizure Moderate recurrent major depression ([facility]) Major depressive disorder, recurrent episode, moderate Shortness of breath Learning disability Other specific developmental learning difficulties Primary hypertension Unspecified essential hypertension Asthma, unspecified asthma severity, unspecified whether complicated, unspecified whether persistent Request for sterilization [facility] Diagnosis MUKESH (obstructive sleep apnea)- Primary Obstructive sleep apnea (adult) (pediatric) [facility]* Diagnosis Polyneuropathy Unspecified hereditary and idiopathic peripheral neuropathy Paresthesia Disturbance of skin sensation documented [facility] noteNo assessment information availablePromedica [facility] Work Phone: Evaluation note* Diagnosis Well woman exam with routine gynecological exam- Primary Routine gynecological examination Encounter for screening mammogram for malignant neoplasm of breast Standardized adult depression screening tool completed Pap smear, as part of routine gynecological examination Screening for malignant neoplasm of the cervix [facility]* Diagnosis Morbid obesity ([facility])- Primary Morbid obesity [facility] in [facility]* Diagnosis Onychocryptosis- Primary Ingrowing nail Dystrophic nail Other specified disease of nail Pain around toenail, right foot Pain around toenail, left foot Difficulty walking Difficulty in walking documented [facility]* Diagnosis Intermittent asthma, unspecified asthma severity, unspecified whether complicated- Primary documented in this encounter [facility] SystemInstructionsNot on filedocumented in this encounter [facility] SystemInstructionsNot on filedocumented in this encounter [facility]* Attachments The following attachments cannot be sent through Care Everywhere. * Fallopian Tube Removal (Sudanese) * Health Risks of a High BMI (Sudanese) documented in [facility] encounter[facility] SystemInstructionsNot on file documented in this encounterProRiverview [facility] SystemInstructionsNot on file documented in this encounterProR[facility] SystemInstructionsNot on file documented in this encounterProRiverview [facility] Health SystemInstructionsNot on file documented in this encounterProRiverview [facility] Health SystemInstructionsNot on file documented in this encounterProChildren'[facility] SystemInstructions* Attachments The following attachments cannot be sent through Care Everywhere. * Calcium and vitamin D for bone health (Sudanese) * Health risks of obesity (Sudanese) documented in this encounterProChildren[facility] SystemInstructionsNot on file documented in this encounterProMedica [facility] SystemReason for referral (narrative)* Consultation (Routine) - Pending Review Specialty Diagnoses / Procedures Referred By Lawrence domínguez Referred To Contact Obstetrics and Gynecology Diagnoses Obesity, morbid, BMI 50 or higher ([facility]) Type 2 diabetes mellitus with diabetic polyneuropathy, without long-term current use of insulin ([facility]) Chronic ulcer of right midfoot limited to breakdown of skin ([facility]) Psychogenic nonepileptic seizure Moderate recurrent major depression ([facility]) Shortness of breath Learning disability Primary hypertension Asthma, unspecified asthma severity, unspecified whether complicated, unspecified whether persistent Request for sterilization Rehana Senior DO [address] [place] [address] [facility] [address] [place] [address] Referral ID Status Reason Start Date Expiration Date Visits Requested Visits Authorized [id number] Pending Review Specialty Services Required 02/21/2024 02/20/2025 1 1 [facility] ([facility]ative)No reason for referral information availableFirelands Regional Med Center Work Phone: Reason for visit Narrative* Misc (Routine) - Closed Specialty Diagnoses / Procedures Referred By Lawrence domínguez Referred To Contact Diagnoses MUKESH (obstructive sleep apnea) Procedures Home sleep study Katherine Doss MD [id number] [place] [address] Phone: tel: fax: Referral ID Status Reason Start Date Expiration Date Visits Re quested Visits Authorized [id number] Closed 08/15/2024 08/15/2025 1 1 [facility] Discharge Instructions * Instructions* Suze Rodrigues RN [...] please feel free to call us at [phone]. Follow-up should be scheduled for 1 week. -Regular Diet. -Resume all home medications. -Do not operative heavy machinery if you are taking Percocet (oxycodone), [place]/Vicodin (hydrocodone), Tylenol #3 (codeine), or Ultram (tramadol). [...] Documents on File Type Date Recorded Patient Bobbin Cleaning Machine Operator Expl anation Advance Directives and Living Will Power of Turning Machine Operator Helper Documents on File Type Date Recorded Patient Bobbin Cleaning Machine Operator Expl anation Advance Directives and Living Will Power of Turning Machine Operator Helper Documents on File Type Date Recorded Patient Bobbin Cleaning Machine Operator Expl anation ACP-Advance Directive ACP-Power of Turning Machine Operator Helper Advance Directive Response Recorded Date/ Time Advance Directives No November 12:54pm Advance Directive Response Recorded Date/ Time Advance Directives No July 25, 2024 10:23am Summary Purpose Family History Relationship Condition Age at Onset Recorded Date/T zacarias father Hypertension Unknown Chronic obstructive pulmonary disease Unk nown Asthma Unknown Heart disease Unknown High blood cholesterol Unknown Assessments Diagnosis Post-op pain- Primary Other acute postoperative pain Chief Complaint and Reason for Visit Chief Complaint establish Neuropathy Reason for Visit Anxiety Asthma Depression [id number] Hyperlipidemia Hypertension MUKESH (obstructive sleep apnea) Pain with urination Seasonal allergies Thyroid disease Type 2 diabetes mellitus [id number] Neuropathic pain of right thigh Type 2 diabetes mellitus UTI (urinary tract infection) Chief Complaint Admit Date wellness April 17, 2025 1:01 pm Additional Source Comments Reason for Visit (unrecogniz ed section and content) Status Reason Specialty Diagnoses / Procedures Re ferred By Contact Referred To Contact Diagnoses Urinary incontinence in female DX URINARY INCONTINENCE Procedures AR COMPLEX CYSTOMETROGRAM VOIDING PRESSURE STUDIES URODNYAMICS Kolby Ellis MD [address] [place] [address] [facility] Status Reason Specialty Diagnoses / Procedures Re ferred By Contact Referred To Contact Diagnoses Urinary incontinence DX URINARY INCONTINENCE Procedures AR INC IMPLTJ NEUROSTIMULATOR ELTRD SACRAL NERVE INTERSTIM STAGE ONE - LEANDRO Kolby Ellis MD [address] [address] [facility] Reason Comments DM Foot Care Presents for nail. T hinks she may have twisted right ankle, happened maybe in May or March, still hurts. Did not seek any medical txt at the time. States it sometimes swells, no xrays. PCP: Lizbeth Alamo 05/03/24, A1C: 2.5, BS: n/a, SS: 7.5EE Reason Comments Foot Pain Established pt prese nts today for x-rays for right ankle pain. Reason Comments Follow-up ENT: did not follow up withOMAD: having issues- seeing dentist for adjustments Sleep Apnea DME:Arshad Reason Comments Polyneuropathy Reason Comments Med Refill Reason Comments Annual Exam Reason Comments tubal consult Specialty Diagnoses / Procedures Referred By Lawrence t Referred To Contact Obstetrics and Gynecology Diagnoses Obesity, morbid, BMI 50 or higher ([facility]) Type 2 diabetes mellitus with diabetic polyneuropathy, without long-term current use of insulin ([facility]) Chronic ulcer of right midfoot limited to breakdown of skin ([facility]) Psychogenic nonepileptic seizure Moderate recurrent major depression ([facility]) Shortness of breath Learning disability Primary hypertension Asthma, unspecified asthma severity, unspecified whether complicated, unspecified whether persistent Request for sterilization Rehana Senior DO [address] [place] [address] [facility] [address] [place] [address] Referral ID Status Reason Start Date Expiration Date Visits Requested Visits Authorized [id number] Pending Review Specialty Services Required 02/21/2024 02/20/2025 1 1 Reason Comments Tubal Consult Reason Comments Follow-up Sleep Apnea DME: MSCNot using PA P machineSampled Wisp Fit Pack at last visit Reason Onset Date Comments Sleep Lab 08/14/2024 PSG Order Reason Onset Date Comments Sleep Lab 08/15/2024 HST Reason Comments Peripheral Neuropathy Reason Comments Gynecologic Exam Reason Comments New Patient Need MNT 1 of 3 Reason Comments DM Foot Care Established patient presents today for routine diabetic nail care. PCP: Lizbeth Snyder LV 01/2025, NV: 05/29/25, A1C: 5.6, BS: hasn't check, doesn't have monitor, SS: 7.5 Reason Comments Asthma Currently not using inhalers Sleep Apnea Uses [facility] INFORMATION SOURCE (unrecogn ized section and content) DATE CREATED AUTHOR 07/07/2020 [facility] [employer] DATE CREATED AUTHOR AUTHOR'S ORGANIZ ATION 12/22/2020 [facility] DATE CREATED AUTHOR AUTHOR'S ORGANIZ ATION 01/06/2021 [facility] DATE CREATED AUTHOR AUTHOR'S ORGANIZ ATION 09/11/2021 [facility] DATE CREATED AUTHOR AUTHOR'S ORGANIZ ATION 02/16/2023 [facility] DATE CREATED AUTHOR AUTHOR'S ORGANIZ ATION 02/21/2024 [facility] DATE CREATED AUTHOR AUTHOR'S ORGANIZ ATION 03/07/2024 [facility] DATE CREATED AUTHOR AUTHOR'S ORGANIZ ATION 11/10/2024 [facility] DATE CREATED AUTHOR AUTHOR'S ORGANIZ ATION 05/24/2025 [facility] EPIC DATE CREATED AUTHOR AUTHOR'S ORGANIZ ATION 05/28/2025 [facility] DATE CREATED AUTHOR AUTHOR'S ORGANIZ ATION 05/28/2025 [facility] Ordered Prescriptions (unrec ognized section and content) [...] Care Teams (unrecognized sec tion and content) Team Status: Active Member Role Status Dates Kolby Ellis MD Specialist Active Laurent Sierra DPM Specialist Active Lizbeth Snyder APRN BUZZSAW OPERATOR HELPER-C Primary Care Provider Active Team Status: Inactive Member Role Status Dates Lizbeth Snyder APRN BUZZSAW OPERATOR HELPER-Gilles Primary Care Provider, Attending Provider Active Start: December 02, 2023 End: December 02, 2023 Team Status: Inactive Member Role Status Dates Lizbeth Snyder APRN BUZZSAW OPERATOR HELPER-Gilles Primary Care Provider, Attending Provider Active Start: February 09, 2024 End: February 09, 2024 Egg Crater Relationship Specialty Start Date End Date Lizbeth Snyder NP [address] [place] [address] [place] [address] PCP - General Family Medicine 03/14/24 Ingrid Culver MD [address] [place] [address] Referring Physician Family Medicine 08/17/23 Egg Crater Relationship Specialty Start Date End Date Lizbeth Snyder NP [address] [place] [address] PCP - General Family Medicine 03/14/24 Ingrid Culver MD [address] [place] [address] Referring Physician Family Medicine 08/17/23 Egg Crater Relationship Specialty Start Date End Date Lizbeth Snyder NP [address] [place] [address] PCP - General Family Medicine 03/14/24 Ingrid Culver MD [address] [place] [address] Referring Physician Family Medicine 08/17/23 Egg Crater Relationship Specialty Start Date End Date Lizbeth Snyder NP [address] [place] [address] PCP - General Family Medicine 03/14/24 Ingrid Culver MD [address] [place] [address] Referring Physician Family Medicine 08/17/23 Egg Crater Relationship Specialty Start Date End Date Lizbeth Snyder NP [address] [place] [address] PCP - General Family Medicine 03/14/24 Ingrid Culver MD [address] [place] [address] Referring Physician Family Medicine 08/17/23 Egg Crater Relationship Specialty Start Date End Date Lizbeth Snyder APRN-CHRISTINE [address] [place] [address] [place] [address] PCP - General 12/10/23 Egg Crater Relationship Specialty Start Date End Date Lizbeth Snyder NP [address] [place] [address] [place] [address] PCP - General Family Medicine 03/14/24 Ingrid Culver MD [address] [place] [address] Referring Physician Family Medicine 08/17/23 Laurent Ragland MD [address] [place] [id number] Referring Physician Neurology 09/10/24 Yamile Lofton PA [address] [place] [address] Physician Email Production Specialist Neurology 09/10/24 Egg Crater Relationship Specialty Start Date End Date Lizbeth Snyder NP [address] [place] [address] [place] [address] PCP - General Family Medicine 03/14/24 Ingrid Culver MD [address] [place] [address] Referring Physician Family Medicine 08/17/23 Laurent Ragland MD [address] [place] [address] Referring Physician Neurology 09/10/24 Yamile Lofton PA [address] [place] [address] Physician Email Production Specialist Neurology 09/10/24 Egg Crater Relationship Specialty Start Date End Date Lizbeth Snyder NP [address] [facility] [place] [address] PCP - General Family Medicine 03/14/24 Ingrid Culver MD [address] [place] [address] Referring Physician Family Medicine 08/17/23 Laurent Ragland MD [address] [place] [address] Referring Physician Neurology 09/10/24 Yamile Lofton PA [address] [place] [address] Physician Email Production Specialist Neurology 09/10/24 Egg Crater Relationship Specialty Start Date End Date Lizbeth Snyder APRN-NP [address] [place] [address] PCP - General 12/10/23 Egg Crater Relationship Specialty Start Date End Date Lizbeth Snyder APRN-NP [address] [facility] [place] [address] PCP - General 12/10/23 Egg Crater Relationship Specialty Start Date End Date Lizbeth Snyder APRN-NP [address] [facility] [place] [address] PCP - General 12/10/23 Egg Crater Relationship Specialty Start Date End Date Palomo Ingrid Phoenix, FUEL CELL DESIGNER-SINGER SONGWRITER [address] [facility] [address] [place] [address] PCP - General Family Medicine 10/22/19 Egg Crater Relationship Specialty Start Date End Date Lizbeth Snyder APRN-BUZZSAW OPERATOR HELPER [address] [facility] Gabriel [place], [id number] PCP - General 12/10/23 Egg Crater Relationship Specialty Start Date End Date Lizbeth Snyder APRN-BUZZSAW OPERATOR HELPER [address] [facility] Gabriel [place], [id number] PCP - General 12/10/23 Egg Crater Relationship Specialty Start Date End Date Lizbeth Snyder APRN-BUZZSAW OPERATOR HELPER [address] [facility] Gabriel [place], [id number] PCP - General 12/10/23 Egg Crater Relationship Specialty Start Date End Date Lizbeth Snyder APRN-BUZZSAW OPERATOR HELPER [address] [facility] Gabriel [place], [id number] PCP - General 12/10/23 Egg Crater Relationship Specialty Start Date End Date Lizbeth Snyder APRN-BUZZSAW OPERATOR HELPER [address] [facility] [place] [address] PCP - General 12/10/23 Egg Crater Relationship Specialty Start Date End Date Lizbeth Snyder NP [address] [place] [address] PCP - General Family Medicine 03/14/24 Ingrid Culver MD [address] [place] [address] Referring Physician Family Medicine 08/17/23 Laurent Ragland MD [address] [place] [address] Referring Physician Neurology 09/10/24 Yamile Lofton PA [address] [place] [address] Physician Email Production Specialist Neurology 09/10/24 Egg Crater Relationship Specialty Start Date End Date Lizbeth Snyder NP [address] [facility] [place] [address] PCP - General Family Medicine 03/14/24 Ingrid Culver MD [address] [place] [address] Referring Physician Family Medicine 08/17/23 Laurent Ragland MD [address] [place] [address] Referring Physician Neurology 09/10/24 Yamile Lofton PA [address] [place] [address] Physician Email Production Specialist Neurology 09/10/24 Egg Crater Relationship Specialty Start Date End Date Lizbeth Snyder APRN-CHRISTINE [address] [place] [address] PCP - General 12/10/23 Team Status: Inactive Member Role Status Dates Lizbeth Snyder APRN BUZZSAW OPERATOR HELPER-C Primary Care Provider Active Start: April 17, 2025 End: April 17, 2025 Lizbeth Snyder APRN BUZZSAW OPERATOR HELPERCassC Attending Provider Act everett Start: April 17, 2025 End: April 17, 2025 Egg Crater Relationship Specialty Start Date End Date Lizbeth Snyder APRN-NP [address] [place], [place] [id number] PCP - General 12/10/23 Egg Crater Relationship Specialty Start Date End Date Lizbeth Snyder APRN-NP [address] [place], [place] [id number] PCP - General 12/10/23 Egg Crater Relationship Specialty Start Date End Date Lizbeth Snyder NP [address] [place], [place] [id number] PCP - General Family Medicine 03/14/24 Ingrid Culver MD [facility] [place] [address] Referring Physician Family Medicine 08/17/23 Laurent Ragland MD [address] [place] [address] Referring Physician Neurology 09/10/24 Yamile Lofton PA [address] [address] Physician Email Production Specialist Neurology 09/10/24 Egg Crater Relationship Specialty Start Date End Date Lizbeth Snyder NP [address] [place], [place] [id number] PCP - General Family Medicine 03/14/24 Ingrid Culver MD [facility] [place] [address] Referring Physician Family Medicine 08/17/23 Laurent Ragland MD [address] [place] [address] Referring Physician Neurology 09/10/24 Yamile Lofton PA [address] [place] [address] Physician Email Production Specialist Neurology 09/10/24 Egg Crater Relationship Specialty Start Date End Date Lizbeth Snyder APRN-CHRISTINE [address] [place] [address] PCP - General 12/10/23 Goals (unrecognized section and content) Goals may be documented in a n alternate sectionNot on filedocumented as of this encounterNot on filedocumented as of this encounterNot on filedocumented as of this encounterNot on filedocumented as of this encounterNot on filedocumented as of this encounterNot on filedocumented as of this encounterNot on filedocumented as of this encounterNot on filedocumented as of this encounterNot on filedocumented as of this encounterNot on filedocumented as of this encounterNot on filedocumented as of this encounterNot on filedocumented as of this encounterNot on filedocumented as of this encounterNot on filedocumented as of this encounterNot on filedocumented as of this encounterNot on filedocumented as of this encounterNot on filedocumented as of this encounterNot on filedocumented as of this encounterNot on filedocumented as of this encounterGoals may be documented in an alternate sectionNot on filedocumented as of this encounterNot on filedocumented as of this encounterNot on filedocumented as of this encounterNot on filedocumented as of this encounter FOR RECORDS PERTAINING TO PATIENTS WHO ARE [...] BE BASED ON THE PRIMARY CLINICAL RECORDS. [facility]. provides no warranty or guarantee of the accuracy or completeness of information in this document.
[2025-05-29 12:37] LABS: Iron 57.0 ug/dL (50.0-170.0)
[2025-05-29 12:48] LABS: Alanine Aminotransferase 37 U/L (14-59); Albumin Globulin Ratio 0.9; Albumin Level 3.8 g/dL (3.4-5.0); Alkaline Phosphatase 91 U/L (46-116); Aspartate Amino Transferase 22 U/L (15-37); Globulin 4.3 g/dL; Thyroid Stimulating Hormone 2.393 uIU/mL (0.358-3.740); Total Protein 8.1 g/dL (6.4-8.2)
[2025-05-30 08:09] LABS: Vitamin B12 687 pg/mL (232-1245)
== END 2025-05-29 11:47 | disposition home or self-care (01) ==
LOC: LAB 11:48
PROVIDERS: PCP Nurse Practitioner Family; Visit Provider Student in an Organized Health Care Education/Training Program
DX: E66.01 Morbid (severe) obesity due to excess calories (principal)
CPT/HCPCS: 36415; 80076; 82306; 82607; 83036; 83540; 83970; 84443; 85025

== ENCOUNTER 2025-07-28 00:43 | Emergency (ER) | payer OTHER, SELFPAY ==
--- OUTSIDE RECORDS SUMMARY | 2025-07-15 10:00 | XMS_ITS | Encounter Summary ---
Author Organization [facility] tem Address [id number] [address] [place] [address] Care Team Providers Care Patient Care Technician Name Role Phone Lizbeth Snyder Primary Care Provid er Reason for Referral * Consultation (Routine) - Pending ReviewSpecialtyDiagnoses / ProceduresReferred By ContactReferred To ContactWeight Loss Diagnoses Morbid obesity ([facility]) Malcolm Salmon DO [address] [place] [address] Phone: tel: fax: [facility] - [address] [address] Phone: tel: fax: Referral IDStatusReasonStart DateExpiration DateVisits RequestedVisits [id number] Reason for Visit * ReasonCommentsNew PatientLS TMP, NO RECENT TESTING DONE, NO DEVICES, COVID 2020, SCHED W/PT * Consultation (Routine) - Pending ReviewSpecialtyDiagnoses / ProceduresReferred By ContactReferred To ContactCardiology Diagnoses Morbid obesity (CMS-HCC) Charlene Burris MD [address] [place] [address] Phone: tel: fax: [facility] [address] [place] [address] Phone: tel: fax: Referral IDStatusReasonStart DateExpiration DateVisits RequestedVisits [id number] Review Specialty Services Required / Encounter Details DateTypeDepartmentCare Team (Latest Contact Info)Djlbnltmtjn22/13/2025 10:00 AM EDTOffice Visit [facility] [address] [place] [address] Jani Posadas MD [address] [place] [address] Malcolm Salmon A, DO [address] [place] [address] Shortness of breath (Primary Dx); Morbid obesity ([facility]) Social History Tobacco UseTypesPacks/DayYears UsedDateSmoking Tobacco: NeverSmokeless Tobacco: NeverAlcohol UseStandard Drinks/WeekCommentsNo0 (1 standard drink = 0.6 oz pure alcohol)PHQ-2AnswerDate RecordedTotal Oiqjj3334ChildcareAnswerDate UmqoybarXruqxzenmZmhcvdp01/04/2019EmploymentAnswerDate RecordedEmploymentUnknown 03/06/2019Hunger ScreeningAnswerDate RecordedWithin the past 12 months we worried whether our food would run out before we got money to buy more.Never True05/17/2025Within the past 12 months the food we bought just didn't last and we didn't have money to get more.Never True05/17/2025Purpose - LifeAnswerDate RecordedPurpose and direction in dweiKasllok99/11/2021CommentsNoSex and Gender InformationValueDate RecordedSex Assigned at ViyjnDwnoae77/07/2023 12:31 PM EDTLegal PvrDsqfhe76/01/2015 10:00 AM ESTGender RbwxcpxmLnvflf68/29/2019 5:14 PM EDTSexual OrientationNot on filedocumented as of this encounter Last Filed Vital Signs Vital SignReadingTime TakenCommentsBlood Zhygsvvj212/8010 9:20 AM EDT Cjuxa6550 9:20 AM EDTTemperature--Respiratory Rate--Oxygen Saturation-- Inhaled Oxygen Concentration--Esyzfw761.4 kg (283 lb)07/15/2025 9:20 AM EDT Awxpse006.1 cm (4' 11.5 )07/15/2025 9:20 AM EDTBody Mass Index56.210 9:20 AM EDTdocumented in this encounter Patient Instructions * Attachments The following attachments cannot be sent through Care Everywhere. * Mediterranean diet (Moroccan) documented in this encounter Progress Notes * Malcolm Salmon, - 07/15/2025 10:00 AM EDT Angela Morgan Juan Jose Date of visit: 07/15/2025 Date of : 1985 Age: 39 y.o. Patient Active Problem List Diagnosis Obesity, morbid, BMI 50 or higher ([facility]) HTN (hypertension) Shortness of breath Type 2 diabetes mellitus, without long-term current use of insulin ([facility]) Chronic ulcer of right midfoot limited to breakdown of skin ([facility]) Generalized anxiety disorder Learning disability Moderate recurrent major depression ([facility]) Psychogenic nonepileptic seizure Allergies Allergen Reactions Claritin [Loratadine] Methylprednisolone Hives Oxycodone Metformin Diarrhea Current Outpatient Medications Medication Sig Dispense Refill APPLE CIDER VINEGAR ORAL Take 1 tablet by mouth in the morning. ARIPiprazole (ABILIFY) 10 mg tablet Take 1 tablet (10 mg total) by mouth in the morning. atorvastatin (LIPITOR) 20 mg tablet Take 1 tablet (20 mg total) by mouth in the morning. busPIRone (BUSPAR) 15 mg tablet Take 1 tablet (15 mg total) by mouth 3 (three) times a day. cetirizine (ZyrTEC) 10 mg tablet Take 1 tablet (10 mg total) by mouth in the morning. EASY TOUCH ALCOHOL PREP PADS pads, medicated gabapentin (NEURONTIN) 400 mg capsule Take 1 capsule (400 mg total) by mouth 3 (three) times a day. hydroCHLOROthiazide (MICROZIDE) 12.5 mg capsule Take 2 capsules (25 mg total) by mouth every morning. hydrOXYzine (VISTARIL) 25 mg capsule Take 1 capsule (25 mg total) by mouth as needed in the morningand 1 capsule (25 mg total) as needed at noon and 1 capsule (25 mg total) as needed in the evening. JANUVIA 100 mg tablet Take 1 tablet (100 mg total) by mouth in the morning. lactase (LACTAID) 3,000 unit tablet Take 1 tablet (3,000 Units total) by mouth as needed. levothyroxine (SYNTHROID, LEVOTHROID) 50 MCG tablet Take 1 tablet (50 mcg total) by mouth in the morning. montelukast (SINGULAIR) 10 mg tablet Take 1 tablet (10 mg total) by mouth nightly. multivit-minerals/folic acid (MULTIVITAMIN GUMMIES ORAL) Take 1 tablet by mouth in the morning. naproxen sodium (ALEVE) 220 mg capsule Take 1 capsule (220 mg total) by mouth as needed. omeprazole (PriLOSEC) 40 mg capsule Take 1 capsule (40 mg total) by mouth nightly. oxybutynin XL (DITROPAN-XL) 10 mg 24 hr tablet Take 1 tablet (10 mg total) by mouth in the morning. sertraline (ZOLOFT) 100 mg tablet Take 2 tablets (200 mg total) by mouth in the morning. traZODone (DESYREL) 50 mg tablet Take 1 tablet (50 mg total) by mouth nightly. TRULICITY 1.5 mg/0.5 mL pen injector Inject 3 mg under the skin once a week. VITAMIN D3 50 mcg (2,000 unit) capsule Take 1 capsule (2,000 Units total) by mouth in the morning. famotidine (PEPCID) 20 mg tablet (Patient not taking: Reported on 07/15/2025) gabapentin (NEURONTIN) 100 mg capsule Take 1 capsule (100 mg total) by mouth 3 (three) times a day.(Patient not taking: Reported on 07/15/2025) lisinopriL (PRINIVIL,ZESTRIL) 2.5 mg tablet (Patient not taking: Reported on 07/15/2025) MYRBETRIQ 50 mg tablet extended release 24 hr Take 1 tablet (50 mg total) by mouth in the morning. (Patient not taking: Reported on 07/15/2025) No current facility-administered medications for this visit. Chief Complaint Patient presents with New Patient LS TMP, NO RECENT TESTING DONE, NO DEVICES, COVID 2020, SCHED W/PT History of Present Illness Patient is a 39-year-old female with a past medical history of morbid obesity, MUKESH noncompliant with CPAP, hypertension, zgs-bvlptnl-cuyllcnfy diabetes mellitus, nonepileptic seizures who presents for preventative Cardiology. Patient states that her father has a history of CABG and she would like to reduce her chances of getting any sort of coronary artery disease. She denies any chest pain, lightheadedness, dizziness, lower extremity edema. She does have shortness of breath but that is only when she exerts herself extensively. She saw a bariatric surgeon in his to undergo surgery but states that she may not want to do it anymore due to being told that her healing we will take longer given her diabetes status. She does walk a lot and states that she walks 1-2 miles without any symptoms. Past Medical History: Diagnosis Date Allergic Arthritis Asthma Back pain Chronic kidney failure Eczema GERD (gastroesophageal reflux disease) HTN (hypertension) Hypothyroid Migraine Panic attack Sleep apnea Visual impairment No data recorded No data recorded No data recorded Past Surgical History: Procedure Laterality Date CHOLECYSTECTOMY IMPLANTATION VAGAL NERVE STIMULATOR 2020 Family History Problem Relation Age of Onset Heart disease Father Emphysema Father Asthma Father Hypertension Father No Known Problems Mother Diabetes Maternal Aunt Breast cancer Neg Hx Colon cancer Neg Hx Ovarian cancer Neg Hx Uterine cancer Neg Hx Social History Socioeconomic History Marital status: Spouse name: Not on file Number of children: Not on file Years of education: Not on file Highest education level: Not on file Occupational History Not on file Tobacco Use Smoking status: Never Smokeless tobacco: Never Vaping Use Vaping status: Never Used Substance and Sexual Activity Alcohol use: No Drug use: No Sexual activity: Not Currently Partners: Male control/protection: I.U.D. Other Topics Concern Caffeine Use Yes Social History Narrative Not on file Social Drivers of Health Financial Resource Strain: Not on file Food Insecurity: No Food Insecurity (05/17/2025) Hunger Screening Food Insecurity - Worry: Never True Food Insecurity - Inability: Never True Transportation Needs: Not on file Physical Activity: Not on file Stress: Not on file Social Connections: Not on file Interpersonal Safety: Not on file Housing Instability: Not on file Review of Systems Review of Systems Constitutional: Negative for malaise/fatigue. HENT: Negative for nosebleeds. Eyes: Negative for blurred vision and double vision. Respiratory: Negative for cough, shortness of breath and wheezing. Hematologic/Lymphatic: Does not bruise/bleed easily. Musculoskeletal: Negative for joint pain, joint swelling, muscle cramps and muscle weakness. Gastrointestinal: Negative for bloating, abdominal pain, constipation, diarrhea, heartburn, hematochezia, nausea and vomiting. Genitourinary: Negative for hematuria. Neurological: Negative for dizziness, headaches and light-headedness. Psychiatric/Behavioral: Negative for depression. The patient is not nervous/anxious. Vascular: Negative for claudication and lower extremity wounds or ulcers. CARDIOVASCULAR: Please review HPI. Physical Examination General appearance: In no acute distress Skin: Warm and dry to touch Neck: No JVD but difficult to assess secondary to body habitus Lungs: Clear to ausculation bilaterally, no use of accessory muscles Heart:: RRR with normal S1 and S2, no murmurs and no gallops. Extremities: No edema VITAL SIGNS: BP 118/80 Pulse 65 Ht 151.1 cm (4' 11.5 ) Wt 128.4 kg (283 lb) BMI 56.20 kg/m?? Orders Placed or Reconciled This Encounter Medications oxybutynin XL (DITROPAN-XL) 10 mg 24 hr tablet Sig: Take 1 tablet (10 mg total) by mouth in the morning. lactase (LACTAID) 3,000 unit tablet Sig: Take 1 tablet (3,000 Units total) by mouth as needed. APPLE CIDER VINEGAR ORAL Sig: Take 1 tablet by mouth in the morning. multivit-minerals/folic acid (MULTIVITAMIN GUMMIES ORAL) Sig: Take 1 tablet by mouth in the morning. naproxen sodium (ALEVE) 220 mg capsule Sig: Take 1 capsule (220 mg total) by mouth as needed. There are no discontinued medications. IMPRESSIONS/PLAN 1. Morbid obesity ([facility]) - [facility] - [place], [place] - POCT EKG - [facility] - [place], [place]; Future 2. Shortness of breath - POCT EKG #Preop clearance for bariatric surgery, patient was initially unwilling but I believe I convinced her to do the surgery, I explained to her how weight loss will help with her other comorbidities to prevent further Mace, able to Perform 4 Mets without any symptoms for surgery at low to intermediate unmodifiable non prohibitive acceptable risk #Morbid Obesity BMI 56, we will refer patient to weight management #MUKESH noncompliant with CPAP, she sits up in a chair, #Hypertension, controlled on lisinopril 2.5 and hydrochlorothiazide 12.5 continue taking #Type 2 diabetes mellitus, not on insulin #Nonepileptic seizures NSQIP cardiac complications 0.1% average RCRI 0 Event monitor 11 days symptoms associated with sinus rhythm or sinus tachycardia without any significant cardiac arrhythmias TODAYS ORDERS Orders Placed This Encounter Procedures [facility] [place] [facility] FOLLOW UP No follow-ups on file. PCP: NELSON Castillo Referring Physician: NELSON Castillo [address] [place] [address] documented in this encounter Plan of Treatment DateTypeDepartmentCare Team (Latest Contact Info)Ejtmkwllnia43/23/2026 9:30 AM ESTOffice Visit [facility] [address] [place] [address] Katherine Garcia MD [address] [address] [place] [address] NameTypePriorityAssociated DiagnosesOrder ScheduleProMedica Physicians [facility] - [place], [place]Outpatient ReferralRoutine Morbid obesity ([facility]) 1 Occurrences starting 07/15/2025 until 07/15/2026documented as of this encounter Procedures Procedure NamePriorityDate/TimeAssociated DiagnosisCommentsPOCT EKGRoutine 07/15/2025 Morbid obesity ([facility]) Shortness of breath documented in this encounter Results * POCT EKG (07/15/2025) Narrative Authorizing ProviderResult TypeResult StatusMohamad Scotty FORMAN ORDERABLES Final ResultPerforming OrganizationAddressCity/State/ZIP CodePhone Number MANUALLY TRANSCRIBED RESULTS documented in this encounter Visit Diagnoses Diagnosis Shortness of breath- Primary Morbid obesity (CMS-HCC) Morbid obesity documented in this encounter Additional Health Concerns AssessmentNoted TimePHQ-9 Depression Total Score: 8002/06/2024 8:28 AM EDTA Body Mass Index follow-up plan has been documented for the kurgnlp4205/01/2025 9:45 AM EDTdocumented as of this encounter Care Teams Team MemberRelationshipSpecialtyStart DateEnd Date Lizbeth Snyder APRN-CHRISTINE [address] [place] [address] PCP - General12/10/23documented as of this encounter
[2025-07-28] VITALS (20 sets, daily range): BP systolic 99–125; BP diastolic 54–87; PULSE 70–93; TEMP 36.7; O2SAT 93–98; BMI 56.6
--- NOTE | 2025-07-28 00:45 | ECG_ITS ---
[facility] Test Date: 2025-07-28 Pat Name: JOSH HENDRICKSON Department: Room: - Gender: Female Tso: : 1985 Requested By: [id number] Order Number: [id number] Reading MD: GAURAV BROWN M.D. Measurements Intervals [place] Rate: 81 P: 66 IA: 174 QRS: 97 QRSD: 92 T: 60 QT: 356 QTc: 394 Interpretive Statements 1100 Sinus rhythm 7102 Moderate right axis deviation 9110 normal ECG Compared to ECG 12/02/2018 15:33:21 Right-axis deviation now present Sinus arrhythmia no longer present Electronically Signed On 07-28-2025 10:06:31 EDT by GAURAV BROWN M.D.
--- OUTSIDE RECORDS SUMMARY | 2025-07-28 00:51 | XMS_ITS | Clinical Summary ---
Author Organization [facility] Address [address], [address] [place] [address] Care Team Providers Care Seed Laboratory Assistant Name Role Phone Anna Culver APRN - VALVE INSERTER Primary Care Provi anish Allergies Active AllergyReactionsCriticalityNoted DateCommentsLoratadinePalpitationsLow 03/31/20204650QpnmctzeaahnuobaxnXkeldHpk15/29/2020 Medications MedicationSigDispense QuantityRefillsLast FilledStart DateEnd DateStatus albuterol sulfate HFA (VENTOLIN HFA) 108 (90 Base) MCG/ACT inhaler Inhale 2 puffs into the lungs every 6 hours as needed for WheezingActive atorvastatin (LIPITOR) 20 MG tablet Take 20 mg by mouth dailyActive busPIRone (BUSPAR) 10 MG tablet Take 10 mg by mouth 2 times dailyActive cetirizine (ZYRTEC) 10 MG tablet Take 10 mg by mouth dailyActive oxybutynin (DITROPAN-XL) 10 MG extended release tablet Take 10 mg by mouth 2 times dailyActive gabapentin (NEURONTIN) 300 MG capsule Take 300 mg by mouth 3 times daily.Active hydroCHLOROthiazide (MICROZIDE) 12.5 MG capsule Take 12.5 mg by mouth dailyActive levothyroxine (SYNTHROID) 50 MCG tablet Take 50 mcg by mouth DailyActive lisinopril (PRINIVIL;ZESTRIL) 2.5 MG tablet Take 2.5 mg by mouth dailyActive loperamide (IMODIUM) 2 MG capsule Take 2 mg by mouth as needed for DiarrheaActive omeprazole (PRILOSEC) 10 MG delayed release capsule Take 10 mg by mouth dailyActive sertraline (ZOLOFT) 50 MG tablet Take 50 mg by mouth dailyActive Budesonide-Formoterol Fumarate (SYMBICORT IN) Inhale into the lungs as neededActive metFORMIN (GLUCOPHAGE) 1000 MG tablet Indications:for type 2 diabetes per patientTake 1,000 mg by mouth 2 times daily (with meals) Indications: for type 2 diabetes per patientActive Family History Medical HistoryRelationNameCommentsHeart DiseaseFatherHigh Blood PressureFather DiabetesMotherHigh Blood PressureMotherCancerPaternal AuntPattyRelationName StatusCommentsFatherMotherPaternal AuntPattyAlive Social History Tobacco UseTypesPacks/DayYears UsedDateSmoking Tobacco: NeverSmokeless Tobacco: NeverAlcohol UseStandard Drinks/WeekCommentsNever0 (1 standard drink = 0.6 oz pure alcohol)AUDIT-CAnswerDate RecordedQ1: How often do you have a drink containing alcohol?Never03/31/2020Average Number of DrinksNot on file03/31/2020 Frequency of Binge DrinkingNot on file03/31/2020CommentsNoSex and Gender InformationValueDate RecordedSex Assigned at BirthNot on fileLegal SexFemale 02/27/2020 1:45 PM EDTGender IdentityNot on fileSexual OrientationNot on file Last Filed Vital Signs Vital SignReadingTime TakenCommentsBlood Wydalgpn925/7204 5:15 PM EDT Nlqfj1319 5:15 PM QNIWdutkhsjleq35.6 ??C (97.9 ??F)01/05/2021 5:00 PM EDTRespiratory Wqjd9336 5:15 PM EDTOxygen Ilhpvbzbbf41%01/05/2021 5:00 PM EDTInhaled Oxygen Concentration--Xdhzaj664.4 kg (263 lb 3.7 oz)01/05/2021 1:26 PM NAGKmobpm815.9 cm (4' 11 )01/05/2021 1:26 PM EDTBody Mass Index53.17 01/05/2021 1:26 PM EDT Plan of Treatment Not on file Medical Devices ImplantedTypeAreaManufacturerDevice IdentifierShelf Expiration DateModel / Serial / LotKit Lead Sure Scan Interstim Mri Implanted:Qty: 1 on 12/22/2020 [facility]:StimulatorMEDTRONIC USA INC-[id number] / / [id number] Neurostimulator H1.7xl2in Thk3in Torq Wrnch Prod - [id number] Implanted:Qty: 1 on 01/05/2021 by [facility] INC-[id number] / [id number] / Insurance Care Teams Team MemberRelationshipSpecialtyStart DateEnd Date Anna Culver APRN - AR[place] PCP - GeneralNurse Practitioner, Family03/26/20
--- OUTSIDE RECORDS SUMMARY | 2025-07-28 00:51 | XMS_ITS | Clinical Summary ---
Author Organization [employer] tem Address [id number] [address] [place] [address] Care Team Providers Care Real Estate Closing Coordinator Name Role Phone Lizbeth Snyder Primary Care Provid er Allergies Active AllergyReactionsCriticalityNoted MvbgPyxioznzTmhmimksuk97/18/2017 QnmypsunoGnxaepgwHhv21/04/6193GghcyyqyqbejgcxncuYozke90/08/2019Oxycodone 07/22/2021 Medications MedicationSigDispense QuantityRefillsLast FilledStart DateEnd DateStatus montelukast (SINGULAIR) 10 mg tablet Take 1 tablet (10 mg total) by mouth nightly.Active EASY TOUCH ALCOHOL PREP PADS pads, medicated 05/27/2020Active hydrOXYzine (VISTARIL) 25 mg capsule Take 1 capsule (25 mg total) by mouth as needed in the morning and 1 capsule (25 mg total) as needed at noon and 1 capsule (25 mg total) as needed in the evening.07/21/2021ctive busPIRone (BUSPAR) 15 mg tablet Take 1 tablet (15 mg total) by mouth 3 (three) times a day.07/21/2021ctive sertraline (ZOLOFT) 100 mg tablet Take 2 tablets (200 mg total) by mouth in the morning.07/21/2021ctive VITAMIN D3 50 mcg (2,000 unit) capsule Take 1 capsule (2,000 Units total) by mouth in the morning.03/03/2022Active MYRBETRIQ 50 mg tablet extended release 24 hr Take 1 tablet (50 mg total) by mouth in the morning.11/13/2021ctive ARIPiprazole (ABILIFY) 10 mg tablet Take 1 tablet (10 mg total) by mouth in the morning.05/19/2022ctive omeprazole (PriLOSEC) 40 mg capsule Take 1 capsule (40 mg total) by mouth nightly.11/23/2022ctive lisinopriL (PRINIVIL,ZESTRIL) 2.5 mg tablet Active levothyroxine (SYNTHROID, LEVOTHROID) 50 MCG tablet Take 1 tablet (50 mcg total) by mouth in the morning.Active hydroCHLOROthiazide (MICROZIDE) 12.5 mg capsule Take 2 capsules (25 mg total) by mouth every morning.Active gabapentin (NEURONTIN) 400 mg capsule Take 1 capsule (400 mg total) by mouth 3 (three) times a day.Active famotidine (PEPCID) 20 mg tablet 12/09/2022ctive cetirizine (ZyrTEC) 10 mg tablet Take 1 tablet (10 mg total) by mouth in the morning.Active atorvastatin (LIPITOR) 20 mg tablet Take 1 tablet (20 mg total) by mouth in the morning.12/09/2022ctive JANUVIA 100 mg tablet Take 1 tablet (100 mg total) by mouth in the morning.09/21/2023ctive traZODone (DESYREL) 50 mg tablet Take 1 tablet (50 mg total) by mouth nightly.Active gabapentin (NEURONTIN) 100 mg capsule Take 1 capsule (100 mg total) by mouth 3 (three) times a day.Active TRULICITY 1.5 mg/0.5 mL pen injector Inject 3 mg under the skin once a week.5Active oxybutynin XL (DITROPAN-XL) 10 mg 24 hr tablet Take 1 tablet (10 mg total) by mouth in the morning.5Active lactase (LACTAID) 3,000 unit tablet Take 1 tablet (3,000 Units total) by mouth as needed.Active APPLE CIDER VINEGAR ORAL Take 1 tablet by mouth in the morning.Active multivit-minerals/folic acid (MULTIVITAMIN GUMMIES ORAL) Take 1 tablet by mouth in the morning.Active naproxen sodium (ALEVE) 220 mg capsule Take 1 capsule (220 mg total) by mouth as needed.Active Active Problems ProblemNoted DateDiagnosed DatePsychogenic nonepileptic dabnvym22/11/2022Chronic ulcer of right midfoot limited to breakdown of skin07/29/2021Generalized anxiety odqjlkwu58/27/2021earning nqjkhugbda98/27/2021Moderate recurrent major rpynpsaynd50/27/2021Obesity, morbid, BMI 50 or hzqaoq0105/03/2019 Overview (02/06/2024): Discussed BMI at well woman visit HTN (hypertension)05/03/2019Shortness of lxscey3305/03/2019Type 2 diabetes mellitus, without long-term current use of xyurcpq7005/03/2019 Encounters DateTypeDepartmentCare VtxiAyiqschcith53/13/2025 10:00 AM EDTOffice Visit [facility] [address] [place] [phone] Jani Posadas MD Dabaja, Mohamad A, Shortness of breath (Primary Dx); Morbid obesity (CMS-HCC)07/15/20254497Jagqfd99/12/7039Iurldb99/06/2025 9:00 AM EDT Telemedicine [facility] [address] [place] [phone] Lizette Mcfadden LD Morbid obesity (CMS-HCC) (Primary Dx); Pre-bariatric surgery nutrition zexqmryijq47/13/0071Dbcjhg43/05/2025 8:00 AM EDT Telemedicine [facility] [address] [place] [phone] Lizette Mcfadden LD Morbid obesity ([facility]) (Primary Dx); Pre-bariatric surgery nutrition euptolkxzv86/04/2025Orders Only [facility]-Bariatric [address] [place] [phone] Ref Prov, Not In System 06/05/2025 12:00 PM EDTTelemedicine [facility] [address] [place] [phone] Katherine Garcia MD MUKESH (obstructive sleep apnea) (Primary Dx)06/03/20251603Ulumqa93/28/2025 8:50 AM EDT - 05/30/2025 11:59 PM EDTHospital Encounter [facility] - [facility]iology [address] [place] [address] Katherine Garcia MD Intermittent asthma, unspecified asthma severity, unspecified whether complicated Discharge Disposition: Home05/30/2025 8:30 AM EDT - 05/30/2025 8:49 AM EDT Hospital Encounter [facility] - Pulmonary Function [address] [place] [address] Katherine Garcia MD Intermittent asthma, unspecified asthma severity, unspecified whether complicated Discharge Disposition: Home05/30/2025Telephone [facility] [address] [facility] [address] [place] [phone] Janet Payton LPN 05/27/2025 9:00 AM EDTOffice Visit [facility] [address] [facility] [place] [address] Katherine Garcia MD Intermittent asthma, unspecified asthma severity, unspecified whether complicated (Primary Dx)05/27/20255081Vfrejo93/15/2025 9:30 AM EDTOffice Visit [facility] [address] [place] [phone] Charlene Burris MD Morbid obesity (CMS-HCC) (Primary Dx)05/17/2025Telephone [facility] [address] [facility] [address] [place] [address] Yamile Watson CMA 05/16/20256961Aswpvb46/31/2025Results Follow-Up [facility] [place] [address] [place] [address] Dorinda Thorpe, CLUB LOUNGE ATTENDANT-CNM High risk HPV w/aviva, Thin Prep Pap Test05/01/2025 9:00 AM EDTOffice Visit [facility] [place] [address] [place] [address] Well woman exam with routine gynecological exam (Primary Dx); Encounter for screening mammogram for malignant neoplasm of breast; Standardized adult depression screening tool completed; Pap smear, as part of routine gynecological zpsxpuvisoa86/29/2025Travel 04/29/2025Travelfrom Last 3 Months Immunizations ImmunizationAdministration DatesNext WfdSDZ7811/26/2020 Family History Medical HistoryRelationNameCommentsAsthmaFatherToney Julita PolingEmphysemaFather Ramy Julita PolingHeart diseaseFatherToney Julita PolingHypertensionFatherToney Julita PolingDiabetesMaternal AuntMargo reffleNo Known ProblemsMotherBreast cancer Neg HxColon cancerNeg HxOvarian cancerNeg HxUterine cancerNeg HxRelationName StatusCommentsFatherToney Julita PolingDeceasedMaternal AuntMargo reffleMaternal GrandfatherDeceasedMaternal GrandmotherDeceasedMotherAlivePaternal Grandfather DeceasedPaternal GrandmotherDeceased Social History Tobacco UseTypesPacks/DayYears UsedDateSmoking Tobacco: NeverSmokeless Tobacco: Never Tobacco Cessation:Counseling Given: Not Answered Alcohol UseStandard Drinks/WeekCommentsNo0 (1 standard drink = 0.6 oz pure alcohol)PHQ-2AnswerDate RecordedTotal Yfngy734/06/2024ChildcareAnswerDate CyrjlmgyNhllofgvoKrosywg22/04/2019EmploymentAnswerDate RecordedEmploymentUnknown 03/06/2019Hunger ScreeningAnswerDate RecordedWithin the past 12 months we worried whether our food would run out before we got money to buy more.Never True05/17/2025Within the past 12 months the food we bought just didn't last and we didn't have money to get more.Never True05/17/2025Purpose - LifeAnswerDate RecordedPurpose and direction in peliYtqugjl30/11/2021CommentsNoSex and Gender InformationValueDate RecordedSex Assigned at GjspyPpvgcy56/07/2023 12:31 PM EDTLegal HiiVjiisd48/01/2015 10:00 AM ESTGender DsodrrfnBnxemf38/29/2019 5:14 PM EDTSexual OrientationNot on file Last Filed Vital Signs Vital SignReadingTime TakenCommentsBlood Oafraznn708/8010 9:20 AM EDT Ntxxt444707/15/2025 9:20 AM TFMGlbrjatzcgd59.8 ??C (98.3 ??F)12/13/2021 7:47 AM EDTRespiratory Ekcg799611/14/2021 8:43 AM ESTOxygen Lwloevezom14%05/27/2025 9:03 AM EDTInhaled Oxygen Concentration--Gauymq755.4 kg (283 lb)07/15/2025 9:20 AM RYETmbhee872.1 cm (4' 11.5 )07/15/2025 9:20 AM EDTBody Mass Index56. 9:20 AM EDT Plan of Treatment DateTypeDepartmentCare Team (Latest Contact Info)Zkiwqpcvlyh16/23/2026 9:30 AM ESTOffice Visit [facility] [address] [place] [address] Katherine Garcia MD [address] [facility] [address] [place], [place] [phone] Health MaintenanceDue DateLast DoneCommentsDiabetic Ophthalmology Exam1985 Diabetic Foot Exam2003Depression Zrpljggjw07/OVID-19 Vaccine ( season)/, 02/05/2021Influenza Vaccine , 06/26/2020, 07/04/2019, Additional history existsAdult BMI Follow Up [place] BMI Rputuoxlk385Tobacco Pjqslpsfl78Pap Smear807/, 05/01/2025, 06/10/2020, Additional history existsDTaP,Tdap and Td Vaccines (2 - Tdap) Medical Devices ImplantedTypeAreaManufacturerDevice IdentifierShelf Expiration DateModel / Serial / LotImplant Lead-01/05/2021 Implanted:01/05/2021 (Quantity not on file)Implant LeadButtocksinterstim urinary MGU [id number] / [id number] / Neuro Stimulator-01/05/2021 Implanted:01/05/2021 (Quantity not on file)Neuro StimulatorButtocksMEDTRONIC [facility] interstim [id number] / [id number] / Description:interstim II bladder stimulator Procedures Procedure NamePriorityDate/TimeAssociated DiagnosisCommentsPOCT EKGRoutine 07/15/2025 Morbid obesity ([facility]) Shortness of breath AMB REFERRAL TO NUTRITION TRUGHYDJVnnfhcr25/06/2025 9:11 AM EDT Morbid obesity ([facility]) MULTIPLE SHEUDkwkbmn35/04/2025 8:15 AM EDTMULTIPLE XEGUQmwjdnn23/04/2025 8:13 AM EDTMULTIPLE ERSIOvpgylz99/04/2025 8:12 AM EDTXR CHEST 2 XERHowgrmz15/28/2025 9:01 AM EDT Intermittent asthma, unspecified asthma severity, unspecified whether complicated SPIROMETRY PRE/POST BRONCHODILATOR AND PQCGXvfmqzv00/28/2025 8:52 AM EDT Intermittent asthma, unspecified asthma severity, unspecified whether complicated THIN PREP PAP NRFIXbybidy63/30/2025 11:16 AM EDT Pap smear, as part of routine gynecological examination HIGH RISK HPV W/QTMMYfehsdt61/30/2025 11:16 AM EDT Pap smear, as part of routine gynecological examination from Last 3 Months Results * POCT EKG (07/15/2025) Narrative Authorizing ProviderResult TypeResult StatusMoneli FORMAN ORDERABLES Final ResultPerforming OrganizationAddressCity/State/ZIP CodePhone Number MANUALLY TRANSCRIBED RESULTS * Ambulatory referral to Nutrition Services (07/08/2025 9:11 AM EDT) Narrative Authorizing ProviderResult TypeResult StatusCharlene Burris MDOUTPATIENT REFERRAL ORDERABLESFinal ResultPerforming OrganizationAddressCity/State/ZIP CodePhone Number MANUALLY TRANSCRIBED RESULTS * Multiple labs (06/06/2025 8:15 AM EDT) Only the most recent of3 resultswithin the time period is included. Narrative Authorizing ProviderResult TypeResult StatusNot In System Ref ProvPR IMAGING Final ResultPerforming OrganizationAddressCity/State/ZIP CodePhone Number MANUALLY TRANSCRIBED RESULTS * X-ray chest 2 views (05/30/2025 9:01 AM EDT)Anatomical RegionLaterality ModalityBody, ChestN/AComputed RadiographySpecimen (Source)Anatomical Location / LateralityCollection Method / VolumeCollection TimeReceived Time05/30/2025 3:40 PM EDT Narrative 05/30/2025 3:41 PM EDT XR CHEST 2 VWS Clinical Information: Intermittent asthma, unspecified asthma severity, unspecified whether complicated Comparison: 03/14/2019. IMPRESSION: * ??No acute cardiopulmonary disease. * ??Calcification overlying the right shoulder possibly calcific tendinitis measuring 1.2 cm. Finalized by Chivo Lopez MD on 05/30/2025 3:41 PM Procedure Note Chivo Lopez MD - 05/30/2025 XR CHEST 2 VWS Clinical Information: Intermittent asthma, unspecified asthma severity, unspecified whether complicated Comparison: 03/14/2019. IMPRESSION: * No acute cardiopulmonary disease. * Calcification overlying the right shoulder possibly calcific tendinitis measuring 1.2 cm. Finalized by Chivo Lopez MD on 05/30/2025 3:41 PM Authorizing ProviderResult TypeResult StatusKatherine Garcia MDIMG DIAGNOSTIC IMAGING ORDERABLESFinal Result * SPIROMETRY PRE/POST BRONCHODILATOR AND DLCO (05/30/2025 8:52 AM EDT) Narrative MANUALLY TRANSCRIBED RESULTS - 06/07/2025 2:41 PM EDT Images from the original result were not included. Normal pre bronchodilator FVC at 104% predicted. ??Normal FEV1 pre bronchodilator at 108% predicted. ??Mild decrease in FVC and FEV1 post-bronchodilator. ??Normal post bronchodilator ratio at 85% predicted Normal DLCO. Authorizing ProviderResult TypeResult Sgaar Garcia MDPFT ORDERABLES Final ResultPerforming OrganizationAddressCity/State/ZIP CodePhone Number MANUALLY TRANSCRIBED RESULTS * Thin Prep Pap Test (05/01/2025 11:16 AM EDT)ComponentValueRef RangeTest Method Analysis TimePerformed AtPathologist SignatureCase ReportGynecologic Cytology Report ? Case: [id number] ? Authorizing Provider: ??Latanya Valadez APRN-ARUN ?? Collected: ? 05/01/2025 1116 ? [facility] ? [facility] Received: ?05/01/2025 1116 ? - [place] ? First Screen: ?Anne Cassidy, MARBIN(ASCP) ? Specimen: ?Thin Prep Pap, Cervix/Endocervix ? 05/03/2025 11:01 AM [facility] LABORATORYSpecimen Adequacy Satisfactory for evaluation, endocervical/transformation zone component absent 05/03/2025 11:01 AM [facility] LABORATORYInterpretationNEGATIVE FOR INTRAEPITHELIAL LESION OR MALIGNANCYNEGATIVE FOR INTRAEPITHELIAL LESION OR MALIGNANCY, UNSATISFACTORY, EPITHELIAL CELL ABNORMALITY, GLANDULAR EPITHELIAL CELL ABNORMALITY. , SQUAMOUS EPITHELIAL CELL ABNORMALITY, NO DIAGNOSIS RENDERED. 05/03/2025 11:01 AM [facility] at 1101 EDTOther Ridjbdfk19/01/2025 11:01 AM [facility] LABORATORYComment:This ThinPrep slide could not be successfully imaged by the [employer] ThinPrep Imaging System so it was manually screened.Additional InformationThe Pap test is a screening test with an inherent, but low, probability of error. The Pap test is primarily effective for the diagnosis and prevention of squamous cell carcinoma. Regular screening is critical for prevention. ThinPrep liquid-based slides, which meet the Religion Department Chair criteria for automated screening, have been screened by the ThinPrep Imaging System (as of 06/19/07) along with an additional manual rescreening by a therapeutic dietitian and, if indicated, by a pathologist.05/03/2025 11:01 AM [facility] LABORATORYClinical Informationlast pap 2020 negative with negative hpv05/03/2025 11:01 AM [facility] LABORATORYEmbedded Kzkteo4305/03/2025 11:01 AM [facility] LABORATORYSpecimen (Source)Anatomical Location / LateralityCollection Method / VolumeCollection TimeReceived TimeThin Prep (Cervix/Endocervix)05/01/2025 11:16 AM EDT05/01/2025 11:16 AM EDT Narrative Authorizing ProviderResult TypeResult StatusMartitasa Mclean Rory CLUB LOUNGE ATTENDANT-FUNERAL DIRECTOR'S ASSISTANT PATHOLOGY/CYTOLOGY ORDERABLESFinal ResultPerforming OrganizationAddress City/State/ZIP CodePhone Number [facility] [address] [place] [address], * High risk HPV w/aviva (05/01/2025 11:16 AM EDT)ComponentValueRef RangeTest MethodAnalysis TimePerformed AtPathologist SignatureHPV 16NegativeNegative 05/02/2025 12:52 PM [facility] LABORATORYHPV 18Negative Mhyxnija79/31/2025 12:52 PM [facility] LABORATORYOTHER HIGH RISK JHGUlpphusvNnewnjon14/31/2025 12:52 PM [facility] LABORATORYComment:HPV types 31, 33, 35, 39, 45, 52, 56, 58, 59, 66, and 68 DNA were undetectable.Specimen (Source)Anatomical Location / LateralityCollection Method / VolumeCollection TimeReceived TimeThin Prep (Cervix/Endocervix) 05/01/2025 11:16 AM EDT05/02/2025 4:44 AM EDT Narrative Authorizing ProviderResult TypeResult Bere Vinay Rory CLUB LOUNGE ATTENDANT-CNPLAB BLOOD ORDERABLESFinal ResultPerforming OrganizationAddressPomerene Hospital/State/ZIP CodePhone Number [facility] [address] [place] [address], from Last 3 Months Insurance Care Teams Team MemberRelationshipSpecialtyStart DateEnd Date Lizbeth Snyder APRN-CHRISTINE [address] [place] [address] PCP - General12/10/23
--- OUTSIDE RECORDS SUMMARY | 2025-07-28 00:51 | XMS_ITS | Encounter Summary ---
Author Organization [employer] [facility] tem Address [facility] [address] [place] [address] Care Team Providers Care Manager Lan Name Role Phone Lizbeth Snyder Primary Care Provid er Encounter Details DateTypeDepartmentCare Team (Latest Contact Info)Flvtusshotl39/13/2025Travel Social History Tobacco UseTypesPacks/DayYears UsedDateSmoking Tobacco: NeverSmokeless Tobacco: NeverAlcohol UseStandard Drinks/WeekCommentsNo0 (1 standard drink = 0.6 oz pure alcohol)PHQ-2AnswerDate RecordedTotal Erqgo0604ChildcareAnswerDate WqksaabbGzjuexpmvCznguha56/04/2019EmploymentAnswerDate RecordedEmploymentUnknown 03/06/2019Hunger ScreeningAnswerDate RecordedWithin the past 12 months we worried whether our food would run out before we got money to buy more.Never True05/17/2025Within the past 12 months the food we bought just didn't last and we didn't have money to get more.Never True05/17/2025Purpose - LifeAnswerDate RecordedPurpose and direction in ktrwVsqjlss97/11/2021CommentsNoSex and Gender InformationValueDate RecordedSex Assigned at VwqjtMcrfll89/07/2023 12:31 PM EDTLegal MkrDwfeki12/01/2015 10:00 AM ESTGender EtlyrevwLgzynj52/29/2019 5:14 PM EDTSexual OrientationNot on filedocumented as of this encounter Plan of Treatment DateTypeDepartmentCare Team (Latest Contact Info)Iauwdpxfdsw12/23/2026 9:30 AM ESTOffice Visit [facility] [address] [place] [address] Katherine Garcia MD [address] [facility] [address] [place] [address] documented as of this encounter Visit Diagnoses Not on filedocumented in this encounter Additional Health Concerns AssessmentNoted TimePHQ-9 Depression Total Score: 8002/06/2024 8:28 AM EDTA Body Mass Index follow-up plan has been documented for the oktuijr4605/01/2025 9:45 AM EDTdocumented as of this encounter Care Teams Team MemberRelationshipSpecialtyStart DateEnd Date Lizbeth Snyder APRN-CHRISTINE [address] [place] [address] PCP - General12/10/23documented as of this encounter
--- OUTSIDE RECORDS SUMMARY | 2025-07-28 00:51 | XMS_ITS | Encounter Summary ---
Author Organization [employer] [facility] tem Address [facility] [address] [place] [address] Care Team Providers Care Farebox Repairer Name Role Phone Lizbeth Snyder Primary Care Provid er Encounter Details DateTypeDepartmentCare Team (Latest Contact Info)Zbksvlxsnup05/12/2025Travel Social History Tobacco UseTypesPacks/DayYears UsedDateSmoking Tobacco: NeverSmokeless Tobacco: NeverAlcohol UseStandard Drinks/WeekCommentsNo0 (1 standard drink = 0.6 oz pure alcohol)PHQ-2AnswerDate RecordedTotal Mfkwl6024ChildcareAnswerDate EsyhevnaJjfovmqlzZsownzu44/04/2019EmploymentAnswerDate RecordedEmploymentUnknown 03/06/2019Hunger ScreeningAnswerDate RecordedWithin the past 12 months we worried whether our food would run out before we got money to buy more.Never True05/17/2025Within the past 12 months the food we bought just didn't last and we didn't have money to get more.Never True05/17/2025Purpose - LifeAnswerDate RecordedPurpose and direction in ngmvNazwhjl35/11/2021CommentsNoSex and Gender InformationValueDate RecordedSex Assigned at KkvhnHkwbdl93/07/2023 12:31 PM EDTLegal ClhHpngww82/01/2015 10:00 AM ESTGender JckuubnnNvfvts01/29/2019 5:14 PM EDTSexual OrientationNot on filedocumented as of this encounter Plan of Treatment DateTypeDepartmentCare Team (Latest Contact Info)Rbzjwzgsram79/23/2026 9:30 AM ESTOffice Visit [facility] [address] [place] [address] Katherine Garcia MD [address] [facility] [address] [place] [address] documented as of this encounter Visit Diagnoses Not on filedocumented in this encounter Additional Health Concerns AssessmentNoted TimePHQ-9 Depression Total Score: 8002/06/2024 8:28 AM EDTA Body Mass Index follow-up plan has been documented for the uxhdvdm6505/01/2025 9:45 AM EDTdocumented as of this encounter Care Teams Team MemberRelationshipSpecialtyStart DateEnd Date Lizbeth Snyder APRN-CHRISTINE [address] [place] [address] PCP - General12/10/23documented as of this encounter
--- OUTSIDE RECORDS SUMMARY | 2025-07-28 00:51 | XMS_ITS | Clinical Summary ---
Author Organization [facility] Address [address] [place] [address] Care Team Providers Care Music Arranger Name Role Phone Unavailable Primary Care Provider Unavailabl e Social History Tobacco UseTypesPacks/DayYears UsedDateSmoking Tobacco: Never Assessed CommentsUnknownSex and Gender InformationValueDate RecordedSex Assigned at Not on fileLegal DuaBrszuo95/30/2022 12:32 AM EDTGender IdentityNot on file Sexual OrientationNot on file Plan of Treatment Not on file
--- OUTSIDE RECORDS SUMMARY | 2025-07-28 00:51 | XMS_ITS | Clinical Summary ---
Author Organization [facility] Address [address] [facility] [place] [address] Care Team Providers Care Aerospace Manager Name Role Phone Anna Culver MD Unavailable [phone] Lizbeth Snyder NP Primary Care Provider Hoang Ragland MD Unavailable Yamile Lofton Unavailable Allergies Active AllergyReactionsCriticalityNoted DateCommentsLoratadinePalpitations, AvwybiyKuq01/18/2847BflmvzreeFudpupo48/27/2023MethylprednisoloneHives,UnknownLow 04/09/2019OxycodoneRash,XvwebqmLio16/20/2021 Medications MedicationSigDispense QuantityRefillsLast FilledStart DateEnd DateStatus Apple Cider Vinegar 188 MG capsule Active busPIRone (Buspar) 15 MG tablet Take 15 mg by mouth DailyActive Calcium Citrate-Vitamin D (Calcium + D) 315-5 MG-MCG tablet Active cetirizine (ZyrTEC) 10 MG tablet Active hydroCHLOROthiazide (HYDRODiuril) 25 MG tablet Take 25 mg by mouth DailyActive HYDROcodone-acetaminophen ([place]) 5-325 MG tablet Active hydrOXYzine pamoate (Vistaril) 25 MG capsule Active levothyroxine (Synthroid, Levoxyl) 50 MCG tablet Active lisinopril 2.5 MG tablet Active loperamide (Imodium) 2 MG capsule Active meloxicam (Mobic) 15 MG tablet Active montelukast (Singulair) 10 MG tablet Active nitrofurantoin, macrocrystal-monohydrate, (Macrobid) 100 MG capsule TAKE 1 CAPSULE BY MOUTH EVERY 12 HOURS WITH FOODActive omeprazole (PriLOSEC) [address] capsule Active ondansetron (Zofran) 4 MG tablet Active oxybutynin XL (Ditropan-XL) 10 MG 24 hr tablet 09/23/2022ctive pseudoephedrine ER (Sudafed-12 Hour) 120 MG 12 hr tablet Active QUEtiapine (SEROquel) 100 MG tablet Active Ozempic, 1 MG/DOSE, 4 MG/3ML solution pen-injector INJECT 1 UNITS DOSE SUBCUTANEOUSLY ON TUESDAY OF EACH WEEK04/19/2023ctive sertraline (Zoloft) 100 MG tablet Active traZODone (Desyrel) 50 MG tablet Take 50 mg by mouth at sblwtdb5704/21/2023ctive Turmeric powder Active SITagliptin (Januvia) 50 MG tablet Take 100 mg by mouth DailyActive Januvia 100 MG tablet Take 100 mg by mouth Daily09/21/2023ctive Trulicity 0.75 MG/0.5ML solution auto-injector 06/22/2024ctive predniSONE (Deltasone) 10 MG tablet Indications:Capsulitis of right foot,Sprain of ligament of tarsometatarsal joint of right foot, sequela,Pain in joint of right foot,Difficulty walking1 tablet twice daily x 7 days; followed by 1 tablet daily as directed until complete 21 tablet 07/20/2024ctive Additional Information Patient not taking.Reported on 09/10/2024 gabapentin (Neurontin) 100 MG capsule Indications:ParesthesiaTake 1 capsule (100 mg) by mouth in the morning and 1 capsule (100 mg) in the evening and 1 capsule(100 mg) before bedtime. 270 capsule 5Active gabapentin (Neurontin) 400 MG capsule Indications:PolyneuropathyTake 1 capsule (400 mg) by mouth in the morning and 1 capsule (400 mg) in the evening and 1 capsule(400 mg) before bedtime. 270 capsule ctive Active Problems No known active problems Encounters DateTypeDepartmentCare FdbjXietdgqeszk93/20/2025 1:30 PM EDTProcedure Visit [facility] [address] [place] [address] Hoang Sierra DPM Onychocryptosis (Primary Dx); Dystrophic nail; Pain around toenail, right foot; Pain around toenail, left foot; Difficulty nptbrhl7905/22/2025amboo flowsheet [facility] [address] [facility] [place] [address] Hoang Sierra DPM 05/22/20255618Vcztzt98/19/2025Travelfrom Last 3 Months Immunizations ImmunizationAdministration DatesNext FltNZF7311/26/2020Influenza, injectable, nxnpnplqesxp04/26/2019Influenza, injectable, quadrivalent, preservative free 07/30/2020 Family History Medical HistoryRelationNameCommentsBipolar disorderDaughterAsthmaFatherTony Julita PolingEmphysemaFatherTony Julita PolingHeart diseaseFatherTony Julita Francia HyperlipidemiaFatherTony Julita PolingHypertensionFatherTony Julita PolingDiabetes Mother's SisterMargot ReffleBipolar disorderSisterRelationNameStatusComments DaughterFatherTony Julita PolingDeceasedMotherAliveMother's SisterMargot Reffle Sister Social History Tobacco UseTypesPacks/DayYears UsedDateSmoking Tobacco: NeverSmokeless Tobacco: NeverAlcohol UseStandard Drinks/WeekCommentsNever0 (1 standard drink = 0.6 oz pure alcohol)Caffeine intake: >4 cups per day popCommentsUnknownSex and Gender InformationValueDate RecordedSex Assigned at BirthNot on fileLegal Sex Rddeqg6312/15/2022 8:26 PM EDTGender IdentityNot on fileSexual OrientationNot on file Last Filed Vital Signs Vital SignReadingTime TakenCommentsBlood Xoupobhk143/80001/16/2025 2:58 PM EDT Pulse--Temperature--Respiratory Rate--Oxygen Saturation--Inhaled Oxygen Concentration--Ewdygv141 kg (288 lb)05/22/2025 1:46 PM KQWYxcxpp428.9 cm (4' 11 )05/22/2025 1:46 PM EDTBody Mass Index58.17005/22/2025 1:46 PM EDT Plan of Treatment DateTypeDepartmentCare Team (Latest Contact Info)Evgxceiwcvc06/23/2025 2:45 PM ESTProcedure Visit [facility] [address] [place] [address] Hoang Sierra, DPM [address] [place] [address] Health MaintenanceDue DateLast DoneCommentsInfluenza Vaccine (#1)06/03/2025 08/05/2023, 07/30/2020, 06/28/2019Pap Smear05/01/29343405/01/2025, 05/01/2025, 06/10/2020Cervical Cancer Azzdxacdp87/30/2030HPV/Cygdem13 Insurance Care Teams Team MemberRelationshipSpecialtyStart DateEnd Lizbeth Snyder NP [address] [place] [address] [place] [address] PCP - GeneralFamily Medicine03/14/24 Anna Culver MD [address] [place] [address] Referring PhysicianFamily Mhflryro69/15/23 Hoang Ragland MD [address] [facility] [place] [address] Referring AbjmbrymkLitvkibhn46/9/24 Yamile Lofton PA [address] [place] [address] Physician PkqtssvgeKlbrjwtnp87/9/24
--- NOTE | 2025-07-28 00:57 | ED.GENADUL1 ---
HPI HPI - General Adult General Chief complaint: Chest Pain Stated complaint: sob chest pain Time Seen by Provider: 07/28/25 00:50 Source: patient Mode of arrival: ambulance History of Present Illness HPI narrative: patient presents complaining of repetitive cough for past couple of days due to a cold states her chest is sore from coughing and so is the right sided of her head. Cough is dry. Denies abdominal pain or nausea. History of diabetes. Denies CAD Related Data Home Medications ?Medication ?Instructions ?Recorded ?Confirmed aripiprazole 10 mg tablet 10 mg PO .qhs 11/30/24 07/28/25 atorvastatin 20 mg tablet 20 mg PO .qhs 11/30/24 07/28/25 buspirone 15 mg tablet 15 mg PO QDAY 11/30/24 07/28/25 apple cider vinegar 500 mg tablet 750 mg PO DAILY 07/28/25 07/28/25 cetirizine 10 mg tablet 10 mg PO DAILY 07/28/25 07/28/25 cholecalciferol (vitamin D3) 1,250 1,250 mcg PO DAILY 07/28/25 07/28/25 mcg (50,000 unit) capsule gabapentin 400 mg capsule 400 mg PO TID 07/28/25 07/28/25 hydrochlorothiazide 25 mg tablet 25 mg PO DAILY 07/28/25 07/28/25 hydroxyzine HCl 10 mg tablet 10 mg PO BID PRN itching 07/28/25 07/28/25 lactase 3,000 unit tablet 3,000 unit PO QID PRN lactose 07/28/25 07/28/25 intolerance levothyroxine 50 mcg tablet 50 mcg PO DAILY 07/28/25 07/28/25 montelukast 10 mg tablet 10 mg PO DAILY 07/28/25 07/28/25 multivitamin,kr-xmgz-Oc-FA-min 1 tab PO DAILY 07/28/25 07/28/25 naproxen sodium 220 mg capsule 220 mg PO BID PRN pain 07/28/25 07/28/25 (Aleve) omeprazole 40 mg capsule,delayed 40 mg PO DAILY 07/28/25 07/28/25 release oxybutynin chloride 10 mg 10 mg PO DAILY 07/28/25 07/28/25 tablet,extended release 24 hr sertraline 100 mg tablet 200 mg PO DAILY 07/28/25 07/28/25 sitagliptin phosphate 100 mg 100 mg PO DAILY 07/28/25 07/28/25 tablet (Januvia) trazodone 50 mg tablet 50 mg PO DAILY 07/28/25 07/28/25 Allergies Allergy/AdvReac Type Severity Reaction Status Date / Time methylprednisolone Allergy Hives Verified 07/28/25 00:52 oxycodone Allergy Unknown Verified 07/28/25 00:52 loratadine (From Claritin-D) AdvReac tachycardia Verified 07/28/25 00:52 pseudoephedrine (From AdvReac tachycardia Verified 07/28/25 00:52 Claritin-D) metformin AdvReac Mild Diarrhea Uncoded 07/28/25 00:52 Opioid HPI Opioid Management Most Recent Opioid Data: Last Pain Scale 8 11/30/24, 20:53 Review of Systems ROS Status of ROS 10 or more systems reviewed and unremarkable except as noted in history and below PFSH PFSH Social History Smoking status: Never smoker Little interest or pleasure in doing things: not at all Feeling down, depressed, or hopeless: not at all Exam Constitutional Vital Signs, click to edit/add: Last Vital Signs Temp 98.1 F 07/28/25 00:46 Pulse 85 07/28/25 03:01 Resp 15 07/28/25 03:01 BP 99/63 07/28/25 03:01 Pulse Ox 95 07/28/25 03:01 O2 Del Method Room Air 07/28/25 01:36 Common normals: no apparent distress, oriented x3, healthy appearing, alert and well nourished [facility] Common normals: normocephalic and head/scalp atraumatic Head images:  1. tender scalp. no swelling or discoloration Eye Common normals: EOMs intact bilaterally and conjunctivae normal Chest Other: anterior chest wall tenderness that reproduces symptoms Respiratory Common normals: normal respiratory effort, no retractions and no use of accessory muscles Other: faint end expiratory wheezes Cardio Common normals: regular rate, regular rhythm, S1 normal heart sound and S2 normal heart sound GI Common normals: Normal to inspection, nondistended, normoactive bowel sounds present and soft to palpation Extremity Common normals: normal to inspection and full ROM Neuro Common normals: oriented x3, CN's II-XII intact bilaterally, moves all extremities and no focal motor deficits Psych Appearance: grossly normal Course Vital Signs Vital signs: Vital Signs Pulse Oximetry 96 07/28/25 00:45 Temperature 98.1 F 07/28/25 00:46 Pulse Rate 85 07/28/25 03:01 Respiratory Rate 15 07/28/25 03:01 Blood Pressure 99/63 07/28/25 03:01 Pulse Oximetry 95 07/28/25 03:01 Oxygen Delivery Method Room Air 07/28/25 01:36 Medical Decision Making MDM Narrative Medical decision making narrative: patient presents complaining of recurrent cough and chest soreness and pain from coughing. also complains of right sided headache from coughing. chest wall is tender as well as her right sided scalp. exam also with findings of mild end expiratory wheeze. Treated with duoneb NMT. d-dimer positive. CTA chest without PE or infiltrate. labs demonstrate potassium 3.3. Potassium supplemented. Patient re examined and has sl. wheeze but no longer coughing. Headache also resolved at this time. Influenza, COVID19 and RSV neg. WBC normal. Patient informed of working diagnosis of viral illness associated with reactive airways. She does have an inhaler at home and is advised to use it and follow up with her doctor for recheck Lab Data Labs: Lab Results 07/28/25 07/28/25 Range/Units 00:50 00:51 WBC 10.3 (4.0-11.0) 10^3/uL RBC 4.47 (4.20-5.40) 10^6/uL Hgb 11.8 L (12.0-16.0) g/dL Hct 36.8 (36.0-48.0) % MCV 82.3 (81.0-99.0) fL MCH 26.4 L (26.7-34.0) pg MCHC 32.1 (29.9-35.2) g/dL RDW 14.0 (11.0-15.0) % Plt Count 311 (150-450) 10^3/uL MPV 9.7 (9.5-13.5) fL Neut % (Auto) 61.9 (43.0-75.0) % Lymph % (Auto) 30.8 (20.5-60.0) % [place] % (Auto) 5.6 (1.7-12.0) % Eos % (Auto) 1.0 (0.9-7.0) % Baso % (Auto) 0.3 (0.2-2.0) % Neut # (Auto) 6.4 (1.4-6.5) 10^3/uL Lymph # (Auto) 3.2 (1.2-3.8) 10^3/uL [place] # (Auto) 0.6 (0.3-0.8) 10^3/uL Eos # (Auto) 0.1 (0.0-0.7) 10^3/uL Baso # (Auto) 0.0 (0.0-0.1) 10^3/uL Abs Immat Gran (auto) 0.04 H (0.00-0.03) 10^3/uL Imm/Tot Granulo (auto) 0.4 (0.0-0.5) % D-Dimer 0.88 H* (<=0.59) mg/L FEU Sodium 140 (136-145) mmol/L Potassium 3.3 L (3.5-5.1) mmol/L Chloride 102 (98-107) mmol/L Carbon Dioxide 29.6 (21.0-32.0) mmol/L Anion Gap 11.7 BUN 14.0 (7.0-18.0) mg/dL Creatinine 0.82 (0.55-1.02) mg/dL Est GFR ( Amer) >60 (>=60 mL/min/1.73m^2) Est GFR (Non-Af Amer) >60 (>=60 mL/min/1.73m^2) BUN/Creatinine Ratio 17.1 Glucose 99 (74-106) mg/dL Calcium 9.2 (8.5-10.1) mg/dL Troponin I High Sens <4.0 L (4.0-51.3) pg/mL Influenza Type A Ag Negative Influenza Type B Ag Negative SARS-CoV-2 Ag (CV2AG) Negative (NEGATIVE) Discharge Plan Discharge Chief Complaint: Chest Pain Clinical Impression: RAD (reactive airway disease), Acute viral syndrome Patient Disposition: Home, Self-Care Prescriptions / Home Meds: No Action aripiprazole 10 mg tablet 10 mg PO .qhs atorvastatin 20 mg tablet 20 mg PO .qhs buspirone 15 mg tablet 15 mg PO QDAY cetirizine 10 mg tablet 10 mg PO DAILY cholecalciferol (vitamin D3) 1,250 mcg (50,000 unit) capsule 1,250 mcg PO DAILY hydrochlorothiazide 25 mg tablet 25 mg PO DAILY gabapentin 400 mg capsule 400 mg PO TID hydroxyzine HCl 10 mg tablet 10 mg PO BID PRN (Reason: itching) levothyroxine 50 mcg tablet 50 mcg PO DAILY omeprazole 40 mg capsule,delayed release(DR/EC) 40 mg PO DAILY oxybutynin chloride 10 mg tablet extended release 24hr 10 mg PO DAILY sertraline 100 mg tablet 200 mg PO DAILY trazodone 50 mg tablet 50 mg PO DAILY Januvia 100 mg tablet 100 mg PO DAILY multivitamin,az-pxgx-Bt-FA-min Tablet 1 tab PO DAILY naproxen sodium [Aleve] 220 mg capsule 220 mg PO BID PRN (Reason: pain) apple cider vinegar 500 mg tablet 750 mg PO DAILY montelukast 10 mg tablet 10 mg PO DAILY lactase 3,000 unit tablet 3,000 unit PO QID PRN (Reason: lactose intolerance) Rx Instructions: administer with meals and/or snacks Print Language: Kiswahili Instructions: Viral Syndrome (ED), Wheezing (ED) Referrals: CHANDANA OTT [Primary Care Provider, Unknown] - 1 week
--- NOTE | 2025-07-28 01:02 | XR_ITS ---
[facility] [place] [id number] Patient Name: JOSH HENDRICKSON MRN: [id number] date: 1985 Sex: F Assigned Patient Location: ER Current Patient Location: Accession/Order Number: [id number] Exam Date: 07/28/2025 01:05 Report Date: 07/28/2025 14:00 At the request of: VIANCA BLANCHARD MD Procedure: XR chest 1V Plain film chest Single view HISTORY: Shortness of breath COMPARISON: None FINDINGS: SUPPORT DEVICES: None POSTSURGICAL CHANGES: None HEART: Within normal limits PULMONARY DANIE: Within normal limits MEDIASTINUM: Unremarkable LUNGS AND PLEURA: No acute lung process, pleural effusion or pneumothorax identified. BONY STRUCTURES: Intact ADDITIONAL FINDINGS None XR/XR chest 1V IMPRESSION: No acute process. Impression dictated by: Oracio Isaac M.D. 07/28/2025 2:00 PM Dictation Location: [place] [address] Electronically authenticated by: [id number] Y Date: 07/28/2025 14:00
[2025-07-28 01:11] LABS: Hematocrit 36.8 % (36.0-48.0); Hemoglobin 11.8 g/dL (12.0-16.0); Immature Granulocytes Abs Auto 0.04 10^3/uL (0.00-0.03); Immature Granulocytes Pct Auto 0.4 % (0.0-0.5); Lymphocytes Absolute Auto 3.2 10^3/uL (1.2-3.8); Mean Corpuscular HGB Conc 32.1 g/dL (29.9-35.2); Mean Corpuscular Hemoglobin 26.4 pg (26.7-34.0); Mean Corpuscular Volume 82.3 fL (81.0-99.0); Platelet Count 311 10^3/uL (150-450); Red Blood Count 4.47 10^6/uL (4.20-5.40); White Blood Count 10.3 10^3/uL (4.0-11.0)
[2025-07-28 01:16] LABS: SARS-CoV-2 Ag NEGATIVE (NEGATIVE)
[2025-07-28 01:24] LABS: Anion Gap 11.7; Blood Urea Nitrogen 14.0 mg/dL (7.0-18.0); Calcium 9.2 mg/dL (8.5-10.1); Carbon Dioxide 29.6 mmol/L (21.0-32.0); Chloride 102 mmol/L (98-107); Estimated GFR (African America >60 (>=60 mL/min/1.73m^2); Estimated GFR (Non-African Ame >60 (>=60 mL/min/1.73m^2); Glucose 99 mg/dL (74-106); Potassium 3.3 mmol/L (3.5-5.1); Sodium 140 mmol/L (136-145)
[2025-07-28] MEDS: IPRATROPIUM/ALBUTEROL SULFATE 3 ML AMPUL.NEB IH (01:36)
[2025-07-28] MEDS: POTASSIUM CHLORIDE 10 MEQ ER TABLET 40 MEQ PO (04:58)
== END 2025-07-28 05:26 | disposition home or self-care (01) ==
PROVIDERS: Emergency Provider Internal Medicine; PCP Nurse Practitioner Family
DX: B34.9 Viral infection, unspecified (principal); J45.909 Unspecified asthma, uncomplicated; E11.9 Type 2 diabetes mellitus without complications; R79.89 Other specified abnormal findings of blood chemistry
CPT/HCPCS: 36415; 71045; 71275; 80048; 84484; 85025; 85378; 87804; 87811; 93005; 94640; 99285; Q9967

== ENCOUNTER 2025-07-29 13:56 | Emergency (ER) | payer OTHER, SELFPAY ==
--- OUTSIDE RECORDS SUMMARY | 2018-06-03 20:00 | XMS_ITS | CCD ---
Author Name Ursula Palafox NP y Address [address] [facility] [address] [place] [address] Phone Organization [facility] Phone Care Team Providers Care Dental Equipment Mechanic Name Role Phone Palomo KING, Anna Primary Care Provider Unav ailable Unavailable Chronic Care Management Unavaila ble Summary Purpose DataExchange Insurance Providers Payer name Policy type / Coverage type Covered democrat ID Effective Begin Date Effective End Date SUKI BUTTS [facility] [id number] Unknown Unknown Family history Mother Diagnosis Age [...] 05/31/2018 Education level Unknown Some High School 10th05/31/20188910PmemortktcJjvijfrUqoxnvoefc78/29/2018Tobacco historySNOMED CT: 484787219Dzr never smoked or chewed oreteum1305/31/2018Alcohol historySNOMED CT: 577247561Lwmrq drinks fbexbce4405/31/2018Has the patient ever used illegal drugs? UnknownHas never used illegal drugs05/31/2018DNR Order/ Advanced Directive UnknownFull Code05/31/2018 Problems Condition Codes Effective Dates Condition St atus Abnormal electrocardiogram [ECG] [EKG] I CD-10: R94.31 ICD-9: 794.31005/30/2018ActiveAdjustment disorder with mixed anxiety and depressed moodICD-10: F43.23 ICD-9: 309.ActiveBody mass index (BMI) 50-59.9 , adultICD-10: Z68.43 ICD-9: V85.4308ActiveChronic kidney disease, unspecifiedICD-10: N18.9 ICD-9: 585.908ActiveEdema, unspecifiedICD-10: R60.9 ICD-9: 782.308ActiveEssential (primary) hypertensionICD-10: I10 ICD-9: 401.908ActiveHyperlipidemia, unspecifiedICD-10: E78.5 ICD-9: 272.408ActiveHypothyroidism, unspecifiedICD-10: E03.9 ICD-9: 244.908ActivePolyneuropathy, unspecifiedICD-10: G62.9 ICD-9: 356.908ActivePost-traumatic stress disorder, unspecifiedICD-10: F43.10 ICD-9: 309.8108ActiveType 2 diabetes mellitus without complicationsICD- 10: E11.9 ICD-9: 250.0008ActiveUnspecified asthma, uncomplicatedICD-10: J45.909 ICD-9: 493.9008ActiveWheezingICD-10: R06.2 ICD-9: 786.0708Active Medications Medication Codes Instructions Start Date Stop Date Status Fill Instructions diclofenac sodium 75 mg tablet,delayed release RxNorm: 377571 1 Tablet(s) PO BID 05/31/20 18 2017 Inactive lisinopril 2.5 mg tablet RxNorm: 771301 1 Tablet(s) PO daily 05/31/20 18 2017 Inactive Neilmed Pediatric Sinus Rinse Refill packet RxNorm: 1 Unit Dose NASAL PRN 05/31/20 18 2021 Inactive metoprolol succinate ER 50 mg tablet,extended release 24 hr RxNorm: 515021 1 Tablet(s) PO daily 05/31/20 18 2017 Inactive levothyroxine 50 mcg tablet RxNorm: 453424 1 Tablet(s) PO daily 05/31/20 18 2017 Inactive TRUEplus Lancets 30 gauge RxNorm: 1 Lancets Miscellaneous QAM 05/31/20 18 2017 Inactive 100/box Ventolin HFA 90 mcg/actuation aerosol inhaler RxNorm: 943771 2 Puff(s) INH QID 05/31/20 18 2017 Inactive Aleve 220 mg capsule RxNorm: 9365363 1 Capsule(s) PO BID 05/31/20 18 2018 Inactive ranitidine 150 mg tablet RxNorm: 659907 1 Tablet(s) PO BID 05/31/20 18 2017 Inactive gabapentin 300 mg capsule RxNorm: 936477 1 Capsule(s) PO TID as needed 05/31/20 18 2017 Inactive atorvastatin 20 mg tablet RxNorm: 625071 1 Tablet(s) PO QHS 05/31/20 18 2017 Inactive True Metrix Glucose Test Strip RxNorm: 1 Test Strips Miscellaneous QAM 05/31/20 18 2017 Inactive 50/container Calcium 600-D3 Plus 600 mg calcium-800 unit-50 mg tablet RxNorm: 1 Tablet(s) PO daily take an additonal tablet for itching. 05/31/20 18 2017 Inactive hydrochlorothiazide 12.5 mg tablet RxNorm: 312687 1 Tablet(s) PO QAM 05/31/20 18 2017 Inactive Flintstones Complete (iron) 18 mg iron chewable tablet RxNorm: 1 Tablet(s) PO daily 05/31/20 18 2017 Inactive True Metrix Glucose Meter RxNorm: miscellaneous 08/17/20 19 2018 Inactive loperamide 2 mg tablet RxNorm: 206561 oral 09/29/20 19 2018 Inactive d-mannose oral powder RxNorm: PO 18 2021 Inactive Medication Administered No Medication Administered data Results Observation Observation Code Item Item Code Result Date S ervice Location PREALBUMIN 38994 Prealbumin 00397-8 22 mg/dL 06/02/2018 [facility] [address], [place] [address]CZ WWQNCQ91617PK-dyeWUT98423-0<50 pg/mL06/02/2018 [facility] [address] 02243FFACRJYOJQCR (URINE)36442Nnqcvvycieue19498-83.2 mg/dL06/02/2018 [facility] [address] 82963EJCDUTYTGVAH (URINE)87385Yzbwnoketbaa/Creatinine Crpza90528-82 MCG/VFGGQXN1006/02/2018 [facility] [address] 47062LBNDVCDSBKZG (URINE)41609Mhgkt Qljvxrywlj3181-5423.00 mg/dL 06/02/2018 [facility] [address] 317[address]Xbloei DsmmICQOYItgkxsezdxx13388-337.0 %06/02/2018 [facility] [address] 22[address]Uesizy YragYOZBCIastoudspym33448-868.0 %06/02/2018 [facility] [address] [address]Swkoyu JsekUFWQAXnhxbumfu05865-27.0 %06/02/2018 [facility] [address] 812[address]Vjzfzw UigpNJWWRUbaaicuogdd42853-42.0 %06/02/2018 [facility] [address] [address]Dgnjqs ZuqwMOOECHmbcruxad11822-32.0 %06/02/2018 [facility] [address] 15[address]Lbsjne DiffMDIFFAbsolute Njvx26040-97614 /ul06/02/2018 [facility] [address] 99[address]Atvjsm DiffMDIFFAbsolute Occok42491-20661 /ul06/02/2018 [facility] [address] 795[address]Wupwdo DiffMDIFFAbsolute Dvya10864-1968 /ul06/02/2018 [facility] [address] 34039Rqblyg DiffMDIFFPlatelet Llxfcyvq7735-4Bjqiod13/31/2018 [facility] [address] 74[address]Oqbbsf DiffMDIFFAbsolute Xnq12014-3801 /ul06/02/2018 [facility] [address] [address]Avaxlf CggwPEIHYIqpnsyipmvl5828-39+06/02/2018 [facility] [address] 64[address]Hpyruu WfsmEDIDOYylbazbsbcmjqp345-84+06/02/2018 [facility] [address] [address]Cbosec DiffMDIFFAbsolute Psct79380-3382 /ul06/02/2018 [facility] [address] [place] [address]PUXN 14 (METABOLIC PANEL)49935Rtsatcg4451-161 mg/dL06/02/2018 [facility] [address], [place] [address]EXFP 14 (METABOLIC PANEL)43958YQB6642-392 mg/dL06/02/2018 [facility] [address] [place] [address]QCWK 14 (METABOLIC PANEL)08279Zizojyijpg6188-76.7 mg/dL06/02/2018 [facility] [address] [place] [address]VMYS 14 (METABOLIC PANEL)93841EPT/Creat Doggt6318-992.6006/02/2018 [facility] [address] [address]CAJN 14 (METABOLIC PANEL)40146HMP Lxiwxbzid46406-460 ML/MIN 06/02/2018 [facility] [address] [place] [address]CWTA 14 (METABOLIC PANEL)02004LLX Estimated for Americans [address] ML/MIN06/02/2018 [facility] [address] [place] [address]THSF 14 (METABOLIC PANEL)53027Hrqexp9560-3788 mmol/L06/02/2018 [facility] [address] [place] [address]VZVU 14 (METABOLIC PANEL)92135Svazndceo1625-36.0 mmol/L06/02/2018 [facility] [address] [place] [address]QGTL 14 (METABOLIC PANEL)56895Kfsgxnyf3083-1577 mmol/L06/02/2018 [facility] [address] [facility] [place] [address]YFHK 14 (METABOLIC PANEL)19664Jjqjn NH26589-182 mmol/L06/02/2018 [facility] [address] [facility] [place] [address]CUXM 14 (METABOLIC PANEL)81847Qlhoq Uez5905-799.0 mEq/L06/02/2018 [facility] [address] [facility] [place] [address]NPER 14 (METABOLIC PANEL)23086Hkjrbigqyo Serum Vyuueosiqq08318-5219 mOsm/kg06/02/2018 [facility] [address], [place] [address]UZWM 14 (METABOLIC PANEL)49755Gecrcra50772-14.2 g/dL06/02/2018 [facility] [address], [place] [address]ELUL 14 (METABOLIC PANEL)530[address]Knvjz Bkkksue4221-09.6 g/dL06/02/2018 [facility] [address], [place] [address]RPSO 14 (METABOLIC PANEL)13769Psvvtfxb2181-39.4 g/dL06/02/2018 [facility] [address], [place] [address]XHGU 14 (METABOLIC PANEL)30002Mtacqgy/Globulin Axwdg2483-29.2 06/02/2018 [facility] [address], [place] [address]JBAP 14 (METABOLIC PANEL)15236GYL FAGI5275-8383.00 U/L06/02/2018 [facility] [address], [place] [address]XMCK 14 (METABOLIC PANEL)59643IANJ/WNE5608-033 U/L06/02/2018 [facility] [address], [place] [address]ECIN 14 (METABOLIC PANEL)44[address]KBBP/EDR2680-620 U/L06/02/2018 [facility] [address], [place] [address]BIHK 14 (METABOLIC PANEL)93049Gkxkx Vsldlzavi6626-42.7 mg/dL 06/02/2018 [facility] [address], [place] [address]PIMI 14 (METABOLIC PANEL)87668Fiktbua72258-50.5 mg/dL06/02/2018 [facility] [address], [place] [address]KGCD 14 (METABOLIC PANEL)57359Njxambzzc Pvsjvhr95931-91.5 mg/dL 06/02/2018 [facility] [address], [place] [address]ZJXFLYC B-3457428Wbcinez L723816-59411 pg/mL06/02/2018 [facility] [address], [place] [address]UIUVKNHJEN11703Mrccwrrcrb2212-97.4 mg/dL06/02/2018 [facility] [address], [place] [address]IXH54154XBD79962-57.150 uIU/mL06/02/2018 [facility] [address], [place] [address]PSQBFRGQR77153Urxtijzck45999-85.0 mg/dL06/02/2018 [facility] [address] [address]N8G-AZZZKWCMTDCCCBM8279-1Ugdoz HGB T1H32210-91.0 %06/02/2018 [facility] [address] [address]O2L-BOUXUJOCKSCYSPL7899-0lGX76105-4671 mg/dL06/02/2018 [facility] [address] [address]DRG - MGLI61199YPL7522-283 mg/dL06/02/2018 [facility] [address] [address]EJZ - OJRU40242VXG32201-701 %06/02/2018 [facility] [address] [address]XLTAXCBH CBC W/ DIFF MOQ38614RHV1560-036.8 K/ul06/02/2018 [facility] [address] [address]VZWJXOJZ CBC W/ DIFF WBY37811ZTZ780-89.24 M/uL06/02/2018 [facility] [address] [address]EFHVFHBX CBC W/ DIFF YZG27533Xcwvwvnhul242-324.8 g/dL06/02/2018 [facility] [address] [address]DDINVIOW CBC W/ DIFF GZE33983Dvitdelcxo6380-789.2 %06/02/2018 [facility] [address] [address]AMCBEGUU CBC W/ DIFF QOK91467YVC040-183.8 fL06/02/2018 [facility] [address] [address]HGLUSBCS CBC W/ DIFF GYP61125UWJ932-248.9 pg06/02/2018 [facility] [address] [address]GDWAWTIX CBC W/ DIFF YVL02072DXAV392-460.8 g/dL06/02/2018 [facility] [address] [address]DVAITBYW CBC W/ DIFF EFZ54834KPB376-502.1 %06/02/2018 [facility] [address] [address]VQWNTNPK CBC W/ DIFF KRV94477Ehbldomx Qimmc077-9513 K/uL06/02/2018 [facility] [address] 13[address]BPDVBCZY CBC W/ DIFF TMD96202OKL06965-35.6 fL06/02/2018 [facility] [address] [address]NLBTCXJTTGQEY69812Ukuchendzkspq3412-4347 mg/dL06/02/2018 [facility] [address] [place] [address]EAHPZHFPJJNFZ93121QTQL24108-106 mg/dL06/02/2018 [facility] [address] [place], [place] [address]Ncgeed SDQ38602KOX-Ebjiaa05009-6138 mg/dL06/02/2018 [facility] [address] [place] [address]KJOGVPAXZVY76180Eekuuhwcyvs4735-0045 mg/dL06/02/2018 [facility] [address] [place] [address]ALPJMO44352Ozgesb5320-2>20 ng/mL06/02/2018 [facility] [address] [place] [address] Procedures Procedure Codes Date Urinalysis, dip stick Leukocytes:/Moderate, Nitrite:/Negative, Urobilinogen:/Normal, Protein:/Trace, Ph:/6.0, Blood:/Negative, Specific [place]:/1.010, Ketone:/Negative, Bilirubin:/Small, Glucose:/NegativeCPT-4: 84481Xarczcz01/29/2018 Electrocardiogram Finding/Abnormal: _CPT-4: 12211Ybuqcwm06/29/2018 Vital Signs Date Vital 05/31/2018 Blood Pressure 1: 113/71 Code: 8480-6 BMI: 59.0 Code: 11505-8 Heart Rate 1: 71 bpm Height: 4'11 Code: 8302-2 Random Blood Sugar: 123/NaN Respiratory Rate: 16 bpm SpO2: 98% Temperature: 37.4 (C) / 99.4 (F) Weight: 292 lbs 2 oz Code: 66656-3 Reason For Visit Reason For Visit Effective Dates Notes appropriateness for house call services 05/31/20 18 diabetes mellitus 05/31/2018 hypertension 05/31/2018 Encounters Encounter Performer Location Location Address Codes Magdi e HOME VISIT NEW PATIENT Diagnosis: Type 2 [...] Body mass index (BMI) 50-59.9 , adult[ICD10: Z68.43]Rasta Marquezsenthilziggysang [address] [address]DEQ-3: [id number] Plan of Care Planned Activity Notes Codes Status Date Visit Plan: E11250.00 Type 2 diabetes mellitus without complications Chronic, stable, controlled, RBS 123, denies hypoglycemia. POC: no change to POC needed. Will continue to monitor & assess the effectiveness of the current POC Labs drawn per [facility] Protocol assess current status & the effectiveness [...] was arrested last Tuesday & is in prison for raping her 13 year old daughter. POC: referral to psychiatry 05/31/2018Patient Education: Patient Medication AmqtawfLouywlbwk78/29/2018 Patient Education: WkzangplUsxbeusri19/29/2018Patient Education: Hypertension Otfbebmtg54/29/2018Referral: Pending Gynecology Referral InformationReferral ProcessedReferral: Pending Pulmonology Referral InformationReferralProcessed Referral: Pending Psychiatry Referral InformationReferralInitiatedReferral: Pending Respiratory Services Referral InformationReferralInitiatedReferral: Pending Ophthalmology Referral InformationReferralInitiatedReferral: [facility] WPtel: [address] [place] [address] USWriter placed a call out to the patient to notify her that it has been recommended that she be seenby 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 Patient agreed to be seen, does not have a provider of choice and no transportationissues. Dealer Accounts Investigator faxed referral and clinical notes to [facility] in [place], [place] near the patient's home. Patient to call the urology office to schedule an appointment, as shewill need to coordinate transportation. Patient referral confirmation mailed to her home address.ProcessedReferral: Pending Cardiology Referral InformationReferralProcessedReferral: Pending Bariatric Referral Information ReferralInitiatedReferral: Pending Ophthalmology Referral InformationPatient notified that it has been recommended that she be seen by ophthalmology. Patient agreed to be seen and prefers a provider in the [place] or [facility]. Dealer Accounts Investigator placed a call out to everyone listed in the area and the only location that was able to accept the patient's [facility] [address] [place] [address] and spoke with Maylin. Maylin asked that the patient's referral, face sheet and visit notes be faxed to . Dealer Accounts Investigator faxed over requested documents. Patient appointment confirmation letter generated and mailed to her home address. Patient to call to schedule an appointment.[facility]edReferral: [facility] W[facility]el: [address] [place] USPatient notified that it has been advised that she be seen by Neurology. Patient agreed to be seen and prefers to be seen by a provider in the [place], [place] area. Patient denies any concerns with transportation, and prefers to schedule her own appointment. Dealer Accounts Investigator [facility] and spoke with Neeraj P: who confirmed that their office is able to acceptnew patients and the patient's insurance. After confirming the providers fax number, selling underwriter faxed over the patient's referral, and most recent clinical notes to F: . Patient to call to schedule her appointment. Appointment confirmation letter mailed to the patient's home address. CCDA completed.ProcessedReferral: Pending Nephrology Referral InformationReferralProcessedReferral: Pending Podiatry Referral Information ReferralInitiatedReferral: Pending Podiatry Referral InformationReferral ProcessedReferral: Pending Podiatry Referral InformationReferralInitiated Instructions Comment Date . E11.9-250.00 Type 2 [...] was arrested last Tuesday & is in prison for raping her 13 year old daughter. POC: referral to psychiatry 05/31/2018 Medical Equipment No Medical Equipment data Advance Directives No Advance Directive data
--- OUTSIDE RECORDS SUMMARY | 2018-06-20 20:00 | XMS_ITS | CCD ---
Author Name Ursula Palafox NP y Address [address] [facility] [place] [address] Phone Organization [facility] Phone Care Team Providers Care Systems Developer Name Role Phone Palomo KING, Anna Primary Care Provider Unav ailable Unavailable Chronic Care Management Unavaila ble Summary Purpose DataExchange Insurance Providers Payer name Policy type / Coverage type Covered constitution party ID Effective Begin Date Effective End Date [employer]KI [employer]TS [facility] [id number] Unknown Unknown Family history Mother Diagnosis Age [...] 05/31/2018 Education level Unknown Some High School 10th05/31/20181133LmbevqvjyuUxgmupjKmeobpkbpx59/29/2018Tobacco historySNOMED CT: 809037667Lvf never smoked or chewed apwglwu4705/31/2018Alcohol historySNOMED CT: 717159157Dluke drinks nnxbjxr2905/31/2018Has the patient ever used illegal drugs? UnknownHas never used illegal drugs05/31/2018DNR Order/ Advanced Directive UnknownFull Code05/31/2018 Problems Condition Codes Effective Dates Condition St atus Adjustment disorder with mixed anxiety a nd depressed mood ICD-10: F43.23 ICD-9: 309.2809ActiveEdema, unspecifiedICD-10: R60.9 ICD-9: 782.ActiveEssential (primary) hypertensionICD-10: I10 ICD-9: 401.909ActiveLong term (current) use of non-steroidal anti- inflammatories (NSAID)ICD-10: Z79.1 ICD-9: V58.6409ActivePost-traumatic stress disorder, unspecifiedICD-10: F43.10 ICD-9: 309.8109ActiveType 2 diabetes mellitus without complicationsICD- 10: E11.9 ICD-9: 250.0009ActiveUnspecified asthma, uncomplicatedICD-10: J45.909 ICD-9: 493.9009ActiveWheezingICD-10: R06.2 ICD-9: 786.0709ActiveAbnormal electrocardiogram [ECG] [EKG]ICD-10: R94.31 ICD-9: 794.3108ActiveBody mass index (BMI) 50-59.9 , adultICD-10: Z68.43 ICD-9: V85.4308ActiveChronic kidney disease, unspecifiedICD-10: N18.9 ICD-9: 585.908ActiveHyperlipidemia, unspecifiedICD-10: E78.5 ICD-9: 272.408ActiveHypothyroidism, unspecifiedICD-10: E03.9 ICD-9: 244.908ActivePolyneuropathy, unspecifiedICD-10: G62.9 ICD-9: 356.9005/30/2018Active Medications Medication Codes Instructions Start Date Stop Date Status Fill Instructions Singulair 10 mg tablet RxNorm: 169257 1 Tablet(s) PO daily 06/14/20 18 2018 Inactive Ventolin HFA 90 mcg/actuation aerosol inhaler RxNorm: 2986444 2 Puff(s) INH QID 06/14/20 18 2018 Inactive buspirone 7.5 mg tablet RxNorm: 807876 1 Tablet(s) PO BID 06/14/20 18 2017 Inactive Prozac 10 mg capsule RxNorm: 683061 1 Capsule(s) PO daily 06/14/20 18 2017 Inactive Singulair 10 mg tablet RxNorm: 125036 1 Tablet(s) PO daily 06/14/20 18 2017 Inactive diclofenac sodium 75 mg tablet,delayed release RxNorm: 891257 1 Tablet(s) PO BID 05/31/20 18 2017 Inactive lisinopril 2.5 mg tablet RxNorm: 539365 1 Tablet(s) PO daily 05/31/20 18 2017 Inactive Neilmed Pediatric Sinus Rinse Refill packet RxNorm: 1 Unit Dose NASAL PRN 05/31/20 18 2021 Inactive metoprolol succinate ER 50 mg tablet,extended release 24 hr RxNorm: 612387 1 Tablet(s) PO daily 05/31/20 18 2017 Inactive levothyroxine 50 mcg tablet RxNorm: 828578 1 Tablet(s) PO daily 05/31/20 18 2017 Inactive TRUEplus Lancets 30 gauge RxNorm: 1 Lancets Miscellaneous QAM 05/31/20 18 2017 Inactive 100/box Aleve 220 mg capsule RxNorm: 7868215 1 Capsule(s) PO BID 05/31/20 18 2018 Inactive ranitidine 150 mg tablet RxNorm: 050266 1 Tablet(s) PO BID 05/31/20 18 2017 Inactive gabapentin 300 mg capsule RxNorm: 098651 1 Capsule(s) PO TID as needed 05/31/20 18 2017 Inactive atorvastatin 20 mg tablet RxNorm: 645846 1 Tablet(s) PO QHS 05/31/20 18 2017 Inactive True Metrix Glucose Test Strip RxNorm: 1 Test Strips Miscellaneous QAM 05/31/20 18 2017 Inactive 50/container Calcium 600-D3 Plus 600 mg calcium-800 unit-50 mg tablet RxNorm: 1 Tablet(s) PO daily take an additonal tablet for itching. 05/31/20 18 2017 Inactive hydrochlorothiazide 12.5 mg tablet RxNorm: 707413 1 Tablet(s) PO QAM 05/31/20 18 2017 Inactive Flintstones Complete (iron) 18 mg iron chewable tablet RxNorm: 1 Tablet(s) PO daily 05/31/20 18 2017 Inactive Ventolin HFA 90 mcg/actuation aerosol inhaler RxNorm: 614760 2 Puff(s) INH QID 05/31/20 18 2017 Inactive True Metrix Glucose Meter RxNorm: miscellaneous 08/17/20 19 2018 Inactive loperamide 2 mg tablet RxNorm: 496402 oral 09/29/20 19 2018 Inactive d-mannose oral powder RxNorm: PO 18 2021 Inactive Medication Administered No Medication Administered data Procedures Procedure Codes Date Glucose Blood Test CPT-4: 81217 06/14/2018 Vital Signs Date Vital 06/14/2018 Blood Pressure 1: 121/75 Code: 8480-6 BMI: 59.0 Code: 30557-5 Heart Rate 1: 84 bpm Height: 4'11 Code: 8302-2 Random Blood Sugar: 92/NaN Respiratory Rate: 16 bpm SpO2: 98% Temperature: 37.6 (C) / 99.7 (F) Weight: 292 lbs Code: 66097-0 Reason For Visit Reason For Visit Effective Dates Notes appropriateness for house call services 06/14/20 18 post traumatic stress disorder 06/14/2018 diabetes mellitus 06/14/2018 hypertension 06/14/2018 Encounters Encounter Performer Location Location Address Codes Magdi e HOME VISIT EST PATIENT Diagnosis: Post-traumatic stress disorder, unspecified[ICD10: F43.10] Diagnosis: Adjustment disorder with mixed anxiety and depressed mood[ICD10: F43.23] Diagnosis: Type 2 diabetes mellitus without complications[ICD10: E11.9] Diagnosis: Essential (primary) hypertension[ICD10: I10] Diagnosis: Unspecified asthma, uncomplicated[ICD10: J45.909] Diagnosis: Wheezing[ICD10: R06.2] Diagnosis: Edema, unspecified[ICD10: R60.9] 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 non-steroidal anti-inflammatories (NSAID)[ICD10: Z79.1]Rasta Sesay [address] [address]CRG-7: [id number] Plan of Care Planned Activity Notes Codes Status Date Care Plan: Nebulizer Qyvnbyq2406/21/2018Patient Education: Patient Medication SummaryCompleted 06/14/2018Patient Education: TggryqdjGwyduukaj79/12/2018Patient Education: VkyghwmcgsmmRuzxqycbr20/12/2018Patient Education: LchjfjgRilymqgdp75/12/2018 Referral: Pending Gynecology Referral InformationReferralProcessedReferral: Pending Pulmonology Referral InformationReferralProcessedReferral: Pending Psychiatry Referral InformationReferralInitiatedReferral: Pending Respiratory Services Referral InformationReferralInitiatedReferral: Pending Ophthalmology Referral InformationReferralInitiatedReferral: [facility] WPtel: [address] [facility] [address] [place] [address] USWriter placed a call out to the patient to notify her that it has been recommended that she be seenby 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 Patient agreed to be seen, does not have a provider of choice and no transportationissues. Road Traffic Controller faxed referral and clinical notes to [facility] in [place], [place] near the patient's home. Patient to [...] seen and prefers a provider in the [place] or [facility]. Road Traffic Controller placed a call out to everyone listed in the area and the only location that was able to accept the patient's insurance was [address] [address] and spoke with Maylin. Maylin asked that the patient's referral, face sheet and visit notes be faxed to . Road Traffic Controller faxed over requested documents. Patient appointment confirmation letter generated and mailed to her home address. Patient to call to schedule an appointment.ProcessedReferral: [facility] WPtel: [address] [place] [address] [place], [place] [id number] USPatient notified that it has been advised that she be seen by Neurology. Patient agreed to be seen and prefers to be seen by a provider in the [place], [place] area. Patient denies any concerns with transportation, and prefers to schedule her own appointment. Road Traffic Controller placed a call out to [facility] and spoke with Neeraj P: who confirmed that their office is able to acceptnew patients and the patient's insurance. After confirming the providers fax number, automatic typewriter inspector faxed over the patient's referral, and most recent clinical notes to F: . Patient to call to schedule her appointment. Appointment confirmation letter mailed to the patient's home address. CCDA completed.ProcessedReferral: Pending Nephrology Referral InformationReferralProcessedReferral: Pending Podiatry Referral Information ReferralInitiatedReferral: Pending Podiatry Referral InformationReferral ProcessedReferral: Pending Podiatry Referral InformationReferralInitiated Medical Equipment No Medical Equipment data Advance Directives No Advance Directive data
--- OUTSIDE RECORDS SUMMARY | 2018-06-20 20:00 | XMS_ITS | CCD ---
Author Name Ursula Palafox NP y Address [address] [facility] [address] [place] [address] Phone Organization [facility] Phone Care Team Providers Care Catshovel Driver Name Role Phone Palomo KING, Anna Primary Care Provider Unav ailable Unavailable Chronic Care Management Unavaila ble Summary Purpose DataExchange Insurance Providers Payer name Policy type / Coverage type Covered alliance party ID Effective Begin Date Effective End Date [employer]KI [employer]TS [facility] [id number] Unknown Unknown Family history Mother Diagnosis Age [...] 05/31/2018 Education level Unknown [employer] 10th05/31/20188199EnwbefdxjvBswvcayQkvigkhpjw03/29/2018Tobacco historySNOMED CT: 752085377Tkm never smoked or chewed [id number]/31/2018Alcohol historySNOMED CT: 067507422Qeqaa drinks oekefzu6105/31/2018Has the patient ever used illegal drugs? UnknownHas [...] index (BMI) 50-59.9 , adultICD-10: Z68.43 ICD-9: V85.43005/30/2018ActiveChronic kidney disease, unspecifiedICD-10: N18.9 ICD-9: 585.908ActiveHyperlipidemia, unspecifiedICD-10: E78.5 ICD-9: 272.408ActiveHypothyroidism, unspecifiedICD-10: E03.9 ICD-9: 244.908ActivePolyneuropathy, unspecifiedICD-10: G62.9 ICD-9: 356.9005/30/2018Active Medications Medication Codes Instructions Start Date Stop Date Status Fill Instructions Macrobid 100 mg capsule RxNorm: 738670 1 Capsule(s) PO Q12H 06/21/20 18 2017 Inactive Singulair 10 mg tablet RxNorm: 925708 1 Tablet(s) PO daily 06/14/20 18 2018 Inactive Ventolin HFA 90 mcg/actuation aerosol inhaler RxNorm: 6668524 2 Puff(s) INH QID 06/14/20 18 2018 Inactive buspirone 7.5 mg tablet RxNorm: 877959 1 Tablet(s) PO BID 06/14/20 18 2017 Inactive Prozac 10 mg capsule RxNorm: 233319 1 Capsule(s) PO daily 06/14/20 18 2017 Inactive Singulair 10 mg tablet RxNorm: 966646 1 Tablet(s) PO daily 06/14/20 18 2017 Inactive diclofenac sodium 75 mg tablet,delayed release RxNorm: 489643 1 Tablet(s) PO BID 05/31/20 18 2017 Inactive lisinopril 2.5 mg tablet RxNorm: 101623 1 Tablet(s) PO daily 05/31/20 18 2017 Inactive Neilmed Pediatric Sinus Rinse Refill packet RxNorm: 1 Unit Dose NASAL PRN 05/31/20 18 2021 Inactive metoprolol succinate ER 50 mg tablet,extended release 24 hr RxNorm: 475235 1 Tablet(s) PO daily 05/31/20 18 2017 Inactive levothyroxine 50 mcg tablet RxNorm: 404389 1 Tablet(s) PO daily 05/31/20 18 2017 Inactive TRUEplus Lancets 30 gauge RxNorm: 1 Lancets Miscellaneous QAM 05/31/20 18 2017 Inactive 100/box Aleve 220 mg capsule RxNorm: 7859198 1 Capsule(s) PO BID 05/31/20 18 2018 Inactive ranitidine 150 mg tablet RxNorm: 664988 1 Tablet(s) PO BID 05/31/20 18 2017 Inactive gabapentin 300 mg capsule RxNorm: 218835 1 Capsule(s) PO TID as needed 05/31/20 18 2017 Inactive atorvastatin 20 mg tablet RxNorm: 050925 1 Tablet(s) PO QHS 05/31/20 18 2017 Inactive True Metrix Glucose Test Strip RxNorm: 1 Test Strips Miscellaneous QAM 05/31/20 18 2017 Inactive 50/container Calcium 600-D3 Plus 600 mg calcium-800 unit-50 mg tablet RxNorm: 1 Tablet(s) PO daily take an additonal tablet for itching. 05/31/20 18 2017 Inactive hydrochlorothiazide 12.5 mg tablet RxNorm: 507809 1 Tablet(s) PO QAM 05/31/20 18 2017 Inactive César Complete (iron) 18 mg iron chewable tablet RxNorm: 1 Tablet(s) PO daily 05/31/20 18 2017 Inactive Ventolin HFA 90 mcg/actuation aerosol inhaler RxNorm: 577909 2 Puff(s) INH QID 05/31/20 18 2017 Inactive True Metrix Glucose Meter RxNorm: miscellaneous 08/17/20 19 2018 Inactive loperamide 2 mg tablet RxNorm: 669916 oral 09/29/20 19 2018 Inactive d-mannose oral powder RxNorm: PO 18 2021 Inactive Medication Administered No Medication Administered data Reason For Visit No Reason For Visit data Plan of Care Planned Activity Notes Codes Status Date Patient Education: Patient Medication Summary Stwaaahbo29/19/2018Referral: Pending Gynecology Referral InformationReferral ProcessedReferral: Pending Pulmonology Referral InformationReferralProcessed Referral: Pending Psychiatry Referral InformationReferralInitiatedReferral: Pending Respiratory Services Referral InformationReferralInitiatedReferral: Pending Ophthalmology Referral InformationReferralInitiatedReferral: [facility] WPtel: [address] [place] [address] USWriter placed a call out to the patient to notify her that it has been recommended that she be seenby 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 Patient agreed to be seen, does not have a provider of choice and no transportationissues. Automat Watcher faxed referral and clinical notes to [facility] in [place], [place] near the patient's home. Patient to [...] seen and prefers a provider in the [place] or [facility]. Automat Watcher placed a call out to everyone listed in the area and the only location that was able to accept the patient's insurance was [place] [address] [place] [address] and spoke with Maylin. Maylin asked that the patient's referral, face sheet and visit notes be faxed to . Automat Watcher faxed over requested documents. Patient appointment confirmation letter generated and mailed to her home address. Patient to call to schedule an appointment.ProcessedReferral: [facility], [place] Neurology WPtel: [address] [facility] [address] [id number] [place] notified that it has been advised that she be seen by Neurology. Patient agreed to be seen and prefers to be seen by a provider in the [place], [place] area. Patient denies any concerns with transportation, and prefers to schedule her own appointment. Automat Watcher placed a call out to [facility] and spoke with Neeraj P: who confirmed that their office is able to acceptnew patients and the patient's insurance. After confirming the providers fax number, engineering writer faxed over the patient's referral, and [...]
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
--- OUTSIDE RECORDS SUMMARY | 2018-07-31 20:00 | XMS_ITS | CCD ---
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 City Planning Aide Name Role Phone Palomo KING, Anna Primary Care Provider Unav ailable Unavailable Chronic Care Management Unavaila ble Summary Purpose DataExchange Insurance Providers Payer name Policy type / Coverage type Covered alliance party ID Effective Begin Date Effective End Date SUKI BUTTS [facility] [id number] Unknown Unknown Family history Mother Diagnosis Age [...] 05/31/2018 Education level Unknown Some High School 10th05/31/20185233NugqrqkgquPahjlzuAijegetonh72/29/2018Tobacco historySNOMED CT: 980450442Rmg never smoked or chewed mmcdukh2905/31/2018Alcohol historySNOMED CT: 190801766Maepe drinks vqpgkys9205/31/2018Has the patient ever used illegal drugs? UnknownHas [...] asthma, uncomplicatedICD-10: J45.909 ICD-9: 493.9007/11/2018ActiveWheezingICD-10: R06.2 ICD-9: 786.0710ActiveLong term (current) use of non-steroidal anti- inflammatories (NSAID)ICD-10: Z79.1 ICD-9: V58.64006/13/2018ActiveAbnormal electrocardiogram [ECG] [EKG]ICD-10: R94.31 ICD-9: 794.31005/30/2018ActiveBody mass index (BMI) 50-59.9 , adultICD-10: Z68.43 ICD-9: V85.43005/30/2018ActiveChronic kidney disease, unspecifiedICD-10: N18.9 ICD-9: 585.9005/30/2018ActiveHyperlipidemia, unspecifiedICD-10: E78.5 ICD-9: 272.408ActiveHypothyroidism, unspecifiedICD-10: E03.9 ICD-9: 244.908ActivePolyneuropathy, unspecifiedICD-10: G62.9 ICD-9: 356.9005/30/2018Active Medications Medication Codes Instructions Start Date Stop Date Status Fill Instructions gabapentin 300 mg capsule RxNorm: 609883 1 Capsule(s) PO TID as needed 08/01/20 18 2018 Inactive hydrochlorothiazide 12.5 mg tablet RxNorm: 873315 1 Tablet(s) PO QAM 08/01/20 18 2018 Inactive ranitidine 150 mg tablet RxNorm: 276380 1 Tablet(s) PO BID 08/01/20 18 2018 Inactive Macrobid 100 mg capsule RxNorm: 851055 1 Capsule(s) PO Q12H 06/21/20 18 2017 Inactive Singulair 10 mg tablet RxNorm: 370999 1 Tablet(s) PO daily 06/14/20 18 2018 Inactive Ventolin HFA 90 mcg/actuation aerosol inhaler RxNorm: 1262663 2 Puff(s) INH QID 06/14/20 18 2018 Inactive buspirone 7.5 mg tablet RxNorm: 456455 1 Tablet(s) PO BID 06/14/20 18 2017 Inactive Prozac 10 mg capsule RxNorm: 679910 1 Capsule(s) PO daily 06/14/20 18 2017 Inactive Singulair 10 mg tablet RxNorm: 924496 1 Tablet(s) PO daily 06/14/20 18 2017 Inactive Neilmed Pediatric Sinus Rinse Refill packet RxNorm: 1 Unit Dose NASAL PRN 05/31/20 18 2021 Inactive TRUEplus Lancets 30 gauge RxNorm: 1 Lancets Miscellaneous QAM 05/31/20 18 2017 Inactive 100/box Aleve 220 mg capsule RxNorm: 5402294 1 Capsule(s) PO BID 05/31/20 18 2018 Inactive diclofenac sodium 75 mg tablet,delayed release RxNorm: 160613 1 Tablet(s) PO BID 05/31/20 18 2017 Inactive lisinopril 2.5 mg tablet RxNorm: 914429 1 Tablet(s) PO daily 05/31/20 18 2017 Inactive metoprolol succinate ER 50 mg tablet,extended release 24 hr RxNorm: 270233 1 Tablet(s) PO daily 05/31/20 18 2017 Inactive levothyroxine 50 mcg tablet RxNorm: 934795 1 Tablet(s) PO daily 05/31/20 18 2017 Inactive Ventolin HFA 90 mcg/actuation aerosol inhaler RxNorm: 301336 2 Puff(s) INH QID 05/31/20 18 2017 Inactive ranitidine 150 mg tablet RxNorm: 970814 1 Tablet(s) PO BID 05/31/20 18 2017 Inactive gabapentin 300 mg capsule RxNorm: 125239 1 Capsule(s) PO TID as needed 05/31/20 18 2017 Inactive atorvastatin 20 mg tablet RxNorm: 452869 1 Tablet(s) PO QHS 05/31/20 18 2017 Inactive True Metrix Glucose Test Strip RxNorm: 1 Test Strips Miscellaneous QAM 05/31/20 18 2017 Inactive 50/container Calcium 600-D3 Plus 600 mg calcium-800 unit-50 mg tablet RxNorm: 1 Tablet(s) PO daily take an additonal tablet for itching. 05/31/20 18 2017 Inactive hydrochlorothiazide 12.5 mg tablet RxNorm: 438261 1 Tablet(s) PO QAM 05/31/20 18 2017 Inactive Flmarktones Complete (iron) 18 mg iron chewable tablet RxNorm: 1 Tablet(s) PO daily 05/31/20 18 2017 Inactive True Metrix Glucose Meter RxNorm: miscellaneous 08/17/20 19 2018 Inactive loperamide 2 mg tablet RxNorm: 831158 oral 09/29/20 19 2018 Inactive d-mannose oral powder RxNorm: PO 18 2021 Inactive Medication Administered No Medication Administered data Reason For Visit No Reason For Visit data Plan of Care Planned Activity Notes Codes Status Date Referral: Pending Gynecology Referral Informatio n Referral ProcessedReferral: Pending Pulmonology Referral InformationReferralProcessed Referral: Pending Psychiatry Referral InformationReferralInitiatedReferral: Pending Respiratory Services Referral InformationReferralInitiatedReferral: Pending Ophthalmology Referral InformationReferralInitiatedReferral: [facility] WPtel: [address] [place] [address] USWriter placed a call out to the patient to notify her that it has been recommended that she be seenby 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 Patient agreed to be seen, does not have a provider of choice and no transportationissues. Hydraulics Teacher faxed referral and clinical notes to [facility] in [place], [place] near the patient's home. Patient to [...] seen and prefers a provider in the [place] or [place] area. Hydraulics Teacher placed a call out to everyone listed in the area and the only location that was able to accept the patient's insurance was [facility] [address] [place] [address] and spoke with Maylin. Maylin asked that the patient's referral, face sheet and visit notes be faxed to . Hydraulics Teacher faxed over requested documents. Patient appointment confirmation letter generated and mailed to her home address. Patient to call to schedule an appointment.[facility]edReferral: [facility] WPtel: [address] [facility] [address] [place], [place] [id number] USPatient notified that it has been advised that she be seen by Neurology. Patient agreed to be seen and prefers to be seen by a provider in the [place], [place] area. Patient denies any concerns with transportation, and prefers to schedule her own appointment. Hydraulics Teacher placed a call out to [facility] and spoke with Neeraj P: who confirmed that their office is able to acceptnew patients and the patient's insurance. After confirming the providers fax number, scientific writer faxed over the patient's referral, and [...]
--- OUTSIDE RECORDS SUMMARY | 2018-07-31 20:00 | XMS_ITS | CCD ---
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 Kier Pleater Name Role Phone Palomo KING, Anna Primary Care Provider Unav ailable Unavailable Chronic Care Management Unavaila ble Summary Purpose DataExchange Insurance Providers Payer name Policy type / Coverage type Covered republican ID Effective Begin Date Effective End Date SUKI BUTTS [facility] [id number] Unknown Unknown Family history Mother Diagnosis Age [...] 05/31/2018 Education level Unknown Some High School 10th05/31/20180197WtemjnlmupBzxmazaFfwpbetzxv67/29/2018Tobacco historySNOMED CT: 313094492Jor never smoked or chewed frdbacy2505/31/2018Alcohol historySNOMED CT: 304418414Bkqme drinks bmogyum6105/31/2018Has the patient ever used illegal drugs? UnknownHas [...] Fill Instructions gabapentin 300 mg capsule RxNorm: 994637 1 Capsule(s) PO TID as needed 08/01/20 18 2018 Inactive hydrochlorothiazide 12.5 mg tablet RxNorm: 380342 1 Tablet(s) PO QAM 08/01/20 18 2018 Inactive ranitidine 150 mg tablet RxNorm: 539862 1 Tablet(s) PO BID 08/01/20 18 2018 Inactive Macrobid 100 mg capsule RxNorm: 199003 1 Capsule(s) PO Q12H 06/21/20 18 2017 Inactive Singulair 10 mg tablet RxNorm: 928482 1 Tablet(s) PO daily 06/14/20 18 2018 Inactive Ventolin HFA 90 mcg/actuation aerosol inhaler RxNorm: 4396345 2 Puff(s) INH QID 06/14/20 18 2018 Inactive buspirone 7.5 mg tablet RxNorm: 754221 1 Tablet(s) PO BID 06/14/20 18 2017 Inactive Prozac 10 mg capsule RxNorm: 689449 1 Capsule(s) PO daily 06/14/20 18 2017 Inactive Singulair 10 mg tablet RxNorm: 330086 1 Tablet(s) PO daily 06/14/20 18 2017 Inactive Neilmed Pediatric Sinus Rinse Refill packet RxNorm: 1 Unit Dose NASAL PRN 05/31/20 18 2021 Inactive TRUEplus Lancets 30 gauge RxNorm: 1 Lancets Miscellaneous QAM 05/31/20 18 2017 Inactive 100/box Aleve 220 mg capsule RxNorm: 8790009 1 Capsule(s) PO BID 05/31/20 18 2018 Inactive diclofenac sodium 75 mg tablet,delayed release RxNorm: 331055 1 Tablet(s) PO BID 05/31/20 18 2017 Inactive lisinopril 2.5 mg tablet RxNorm: 174540 1 Tablet(s) PO daily 05/31/20 18 2017 Inactive metoprolol succinate ER 50 mg tablet,extended release 24 hr RxNorm: 103534 1 Tablet(s) PO daily 05/31/20 18 2017 Inactive levothyroxine 50 mcg tablet RxNorm: 164304 1 Tablet(s) PO daily 05/31/20 18 2017 Inactive Ventolin HFA 90 mcg/actuation aerosol inhaler RxNorm: 398180 2 Puff(s) INH QID 05/31/20 18 2017 Inactive ranitidine 150 mg tablet RxNorm: 023784 1 Tablet(s) PO BID 05/31/20 18 2017 Inactive gabapentin 300 mg capsule RxNorm: 718422 1 Capsule(s) PO TID as needed 05/31/20 18 2017 Inactive atorvastatin 20 mg tablet RxNorm: 013822 1 Tablet(s) PO QHS 05/31/20 18 2017 Inactive True Metrix Glucose Test Strip RxNorm: 1 Test Strips Miscellaneous QAM 05/31/20 18 2017 Inactive 50/container Calcium 600-D3 Plus 600 mg calcium-800 unit-50 mg tablet RxNorm: 1 Tablet(s) PO daily take an additonal tablet for itching. 05/31/20 18 2017 Inactive hydrochlorothiazide 12.5 mg tablet RxNorm: 687490 1 Tablet(s) PO QAM 05/31/20 18 2017 Inactive Flmarktones Complete (iron) 18 mg iron chewable tablet RxNorm: 1 Tablet(s) PO daily 05/31/20 18 2017 Inactive True Metrix Glucose Meter RxNorm: miscellaneous 08/17/20 19 2018 Inactive loperamide 2 mg tablet RxNorm: 093155 oral 09/29/20 19 2018 Inactive d-mannose oral powder RxNorm: PO 18 2021 Inactive Medication Administered No Medication Administered data Reason For Visit No Reason For Visit data Plan of Care Planned Activity Notes Codes Status Date Referral: Pending Gynecology Referral Informatio n Referral ProcessedReferral: Pending Pulmonology Referral InformationReferralProcessed Referral: Pending Psychiatry Referral InformationReferralInitiatedReferral: Pending Respiratory Services Referral InformationReferralInitiatedReferral: Pending Ophthalmology Referral InformationReferralInitiatedReferral: [facility] WPtel: [address] [place] [address] USWriter placed a call out to the patient to notify her that it has been recommended that she be seenby 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 Patient agreed to be seen, does not have a provider of choice and no transportationissues. Professor Of Art faxed referral and clinical notes to [facility] in [place], [place] near the patient's home. Patient to [...] seen and prefers a provider in the [place] or [place] area. Professor Of Art placed a call out to everyone listed in the area and the only location that was able to accept the patient's insurance was [facility] [address] [place] [address] and spoke with Maylin. Maylin asked that the patient's referral, face sheet and visit notes be faxed to . Professor Of Art faxed over requested documents. Patient appointment confirmation letter generated and mailed to her home address. Patient to call to schedule an appointment.ProcessedReferral: [facility] WPtel: [address] [facility] [address] [place], [place] [id number] USPatient notified that it has been advised that she be seen by Neurology. Patient agreed to be seen and prefers to be seen by a provider in the [place], [place] area. Patient denies any concerns with transportation, and prefers to schedule her own appointment. Professor Of Art placed a call out to [facility] and spoke with Neeraj [...]
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
--- OUTSIDE RECORDS SUMMARY | 2018-08-30 20:00 | XMS_ITS | CCD ---
Author Name Ursula Palafox NP y Address [address] [place] [address] Phone Organization [facility] Phone Care Team Providers Care Care Clinician Name Role Phone Palomo KING, Anna Primary Care Provider Unav ailable Unavailable Chronic Care Management Unavaila ble Summary Purpose DataExchange Insurance Providers Payer name Policy type / Coverage type Covered libertarian ID Effective Begin Date Effective End Date SUKI BUTTS [facility] [id number] Unknown Unknown Family history Mother Diagnosis Age [...] 05/31/2018 Education level Unknown [employer] High School 10th05/31/20183742RjantapehsGokaykbXvctzdmoje70/29/2018Tobacco historySNOMED CT: 063179882Nnt never smoked or chewed geomswf8905/31/2018Alcohol historySNOMED CT: 041802364Rhits drinks sfobofi9605/31/2018Has the patient ever used illegal drugs? UnknownHas never used illegal drugs05/31/2018DNR Order/ Advanced Directive UnknownFull Code05/31/2018 Problems Condition Codes Effective Dates Condition St atus Acute upper respiratory infection, unspe cified ICD-10: J06.9 ICD-9: 465.911ActiveAdjustment disorder with mixed anxiety and depressed moodICD-10: F43.23 ICD-9: 309.2811ActiveEssential (primary) hypertensionICD-10: I10 ICD-9: 401.911ActivePost-traumatic stress disorder, unspecifiedICD-10: F43.10 ICD-9: 309.8111ActiveType 2 [...] Fill Instructions amoxicillin 500 mg tablet RxNorm: 829477 1 Tablet(s) PO Q12H 08/31/20 18 2017 Inactive albuterol sulfate 2.5 mg/3 mL (0.083 %) solution for nebulization RxNorm: 495969 1 Vial INH QID 08/10/20 18 2018 Inactive 60/box. Please do not fill early. Please do not auto refill. Prozac 10 mg capsule RxNorm: 899994 1 Capsule(s) PO daily 11/07/20 18 2017 Inactive buspirone 7.5 mg tablet RxNorm: 672750 1 Tablet(s) PO BID 08/09/20 18 2018 Inactive gabapentin 300 mg capsule RxNorm: 896347 1 Capsule(s) PO TID as needed 08/01/20 18 2018 Inactive hydrochlorothiazide 12.5 mg tablet RxNorm: 690231 1 Tablet(s) PO QAM 08/01/20 18 2018 Inactive ranitidine 150 mg tablet RxNorm: 211477 1 Tablet(s) PO BID 08/01/20 18 2018 Inactive Macrobid 100 mg capsule RxNorm: 635003 1 Capsule(s) PO Q12H 06/21/20 18 2017 Inactive Singulair 10 mg tablet RxNorm: 924585 1 Tablet(s) PO daily 06/14/20 18 2018 Inactive Ventolin HFA 90 mcg/actuation aerosol inhaler RxNorm: 1223225 2 Puff(s) INH QID 06/14/20 18 2018 Inactive Prozac 10 mg capsule RxNorm: 119604 1 Capsule(s) PO daily 06/14/20 18 2017 Inactive Singulair 10 mg tablet RxNorm: 829392 1 Tablet(s) PO daily 06/14/20 18 2017 Inactive buspirone 7.5 mg tablet RxNorm: 324743 1 Tablet(s) PO BID 06/14/20 18 2017 Inactive Neilmed Pediatric Sinus Rinse Refill packet RxNorm: 1 Unit Dose NASAL PRN 05/31/20 18 2021 Inactive TRUEplus Lancets 30 gauge RxNorm: 1 Lancets Miscellaneous QAM 05/31/20 18 2017 Inactive 100/box Aleve 220 mg capsule RxNorm: 2734819 1 Capsule(s) PO BID 05/31/20 18 2018 Inactive diclofenac sodium 75 mg tablet,delayed release RxNorm: 327617 1 Tablet(s) PO BID 05/31/20 18 2017 Inactive lisinopril 2.5 mg tablet RxNorm: 239280 1 Tablet(s) PO daily 05/31/20 18 2017 Inactive metoprolol succinate ER 50 mg tablet,extended release 24 hr RxNorm: 974220 1 Tablet(s) PO daily 05/31/20 18 2017 Inactive levothyroxine 50 mcg tablet RxNorm: 287296 1 Tablet(s) PO daily 05/31/20 18 2017 Inactive Ventolin HFA 90 mcg/actuation aerosol inhaler RxNorm: 086177 2 Puff(s) INH QID 05/31/20 18 2017 Inactive ranitidine 150 mg tablet RxNorm: 887568 1 Tablet(s) PO BID 05/31/20 18 2017 Inactive gabapentin 300 mg capsule RxNorm: 244435 1 Capsule(s) PO TID as needed 05/31/20 18 2017 Inactive atorvastatin 20 mg tablet RxNorm: 858909 1 Tablet(s) PO QHS 05/31/20 18 2017 Inactive True Metrix Glucose Test Strip RxNorm: 1 Test Strips Miscellaneous QAM 05/31/20 18 2017 Inactive 50/container Calcium 600-D3 Plus 600 mg calcium-800 unit-50 mg tablet RxNorm: 1 Tablet(s) PO daily take an additonal tablet for itching. 05/31/20 18 2017 Inactive hydrochlorothiazide 12.5 mg tablet RxNorm: 874587 1 Tablet(s) PO QAM 05/31/20 18 2017 Inactive Flintstones Complete (iron) 18 mg iron chewable tablet RxNorm: 1 Tablet(s) PO daily 05/31/20 18 2017 Inactive True Metrix Glucose Meter RxNorm: miscellaneous 08/17/20 19 2018 Inactive loperamide 2 mg tablet RxNorm: 469415 oral 09/29/20 19 2018 Inactive d-mannose oral powder RxNorm: PO 18 2021 Inactive Medication Administered No Medication Administered data Reason For Visit No Reason For Visit data Plan of Care Planned Activity Notes Codes Status Date Patient Education: Patient Medication Summary Oxmgzeqfb13/29/2018Referral: Pending Gynecology Referral InformationReferral ProcessedReferral: Pending Pulmonology Referral InformationReferralProcessed Referral: Pending Psychiatry Referral InformationReferralInitiatedReferral: Pending Respiratory Services Referral InformationReferralInitiatedReferral: Pending Ophthalmology Referral InformationReferralInitiatedReferral: [facility] WPtel: [address] [facility] [address] [facility] USWriter placed a call out to the patient to notify her that it has been recommended that she be seenby 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 Patient agreed to be seen, does not have a provider of choice and no transportationissues. Brick Cleaner faxed referral and clinical notes to [facility] in [place], [place] near the patient's home. Patient to [...] seen and prefers a provider in the [place] or [place] area. Brick Cleaner placed a call out to everyone listed in the area and the only location that was able to accept the patient's insurance was [address] [address] and spoke with Maylin. Maylin asked that the patient's referral, face sheet and visit notes be faxed to . Brick Cleaner faxed over requested documents. Patient appointment confirmation letter generated and mailed to her home address. Patient to call to schedule an appointment.[facility]edRef[facility] WPtel: [address] [place] [address] [place], [place] [id number] USPatient notified that it has been advised that she be seen by Neurology. Patient agreed to be seen and prefers to be seen by a provider in the [place], [place] area. Patient denies any concerns with transportation, and prefers to schedule her own appointment. Brick Cleaner placed a call [facility] to [facility] and spoke with Neeraj Mcfarland: who confirmed that their office is able to acceptnew patients and the patient's insurance. After confirming the providers fax number, sign writer hand faxed over the patient's referral, and most [...]
--- OUTSIDE RECORDS SUMMARY | 2018-09-08 20:00 | XMS_ITS | CCD ---
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 Principal Statistical Programmer Name Role Phone Palomo KING, Anna Primary Care Provider Unav ailable Unavailable Chronic Care Management Unavaila ble Summary Purpose DataExchange Insurance Providers Payer name Policy type / Coverage type Covered democrat ID Effective Begin Date Effective End Date SUKI BUTTS [facility] [id number] Unknown Unknown Family history Mother Diagnosis Age [...] 05/31/2018 Education level Unknown Some High School 10th05/31/20180702TnxqqtgglfArmxhjjIwgitmtylf23/29/2018Tobacco historySNOMED CT: 867631727Tdu never smoked or chewed snwrfsc2405/31/2018Alcohol historySNOMED CT: 726643589Imnpu drinks nswiayb4105/31/2018Has the patient ever used illegal drugs? UnknownHas never used illegal drugs05/31/2018DNR Order/ Advanced Directive UnknownFull Code05/31/2018 Allergies, Adverse Reactions, Alerts Substance Reaction Codes Entered Date Inactivated Date Status *No known food allergies Teqykev3709/06/2018No Inactive DateActiveMethylprednisolonehivesRxNorm: 6902 09/06/2018No Inactive DateActive Problems Condition Codes Effective Dates Condition St atus Adjustment disorder with mixed anxiety a nd depressed mood ICD-10: F43.23 ICD-9: 309.28111/06/2017ActiveChronic kidney disease, unspecifiedICD-10: N18.9 ICD-9: 585.9111/06/2017ActiveEncounter for screening, unspecifiedICD-10: Z13.9 ICD-9: V82.912ActiveEssential (primary) hypertensionICD-10: I10 ICD-9: 401.912ActiveHypothyroidism, unspecifiedICD-10: E03.9 ICD-9: 244.912ActivePost-traumatic stress disorder, unspecifiedICD-10: F43.10 ICD-9: 309.8112ActiveType 2 diabetes mellitus without complicationsICD- 10: E11.9 ICD-9: 250.0012ActiveAcute upper respiratory infection, unspecifiedICD- 10: J06.9 ICD-9: 465.911ActiveUnspecified asthma, uncomplicatedICD-10: J45.909 ICD-9: 493.9011ActiveWheezingICD-10: R06.2 ICD-9: 786.0711ActiveEdema, unspecifiedICD-10: R60.9 ICD-9: 782.310ActiveLong term (current) use of non-steroidal anti- inflammatories (NSAID)ICD-10: Z79.1 ICD-9: V58.6409ActiveAbnormal electrocardiogram [ECG] [EKG]ICD-10: R94.31 ICD-9: 794.31005/30/2018ActiveBody mass index (BMI) 50-59.9 , adultICD-10: Z68.43 ICD-9: V85.4308ActiveHyperlipidemia, unspecifiedICD-10: E78.5 ICD-9: 272.408ActivePolyneuropathy, unspecifiedICD-10: G62.9 ICD-9: 356.908Active Medications Medication Codes Instructions Start Date Stop Date Status Fill Instructions sertraline 50 mg tablet RxNorm: 891272 1 Tablet(s) PO daily 09/09/20 18 2018 Inactive Please note dose trazodone 50 mg tablet RxNorm: 050958 1 Tablet(s) PO QHS 09/06/20 18 2018 Inactive sertraline 50 mg tablet RxNorm: 391456 1 Tablet(s) PO daily 09/06/20 18 2017 Inactive amoxicillin 500 mg tablet RxNorm: 533110 1 Tablet(s) PO Q12H 08/31/20 18 2017 Inactive albuterol sulfate 2.5 mg/3 mL (0.083 %) solution for nebulization RxNorm: 640721 1 Vial INH QID 08/10/20 18 2018 Inactive 60/box. Please do not fill early. Please do not auto refill. buspirone 7.5 mg tablet RxNorm: 255558 1 Tablet(s) PO BID 08/09/20 18 2018 Inactive Prozac 10 mg capsule RxNorm: 875973 1 Capsule(s) PO daily 08/09/20 18 2017 Inactive gabapentin 300 mg capsule RxNorm: 673112 1 Capsule(s) PO TID as needed 08/01/20 18 2018 Inactive hydrochlorothiazide 12.5 mg tablet RxNorm: 957097 1 Tablet(s) PO QAM 08/01/20 18 2018 Inactive ranitidine 150 mg tablet RxNorm: 901629 1 Tablet(s) PO BID 08/01/20 18 2018 Inactive Macrobid 100 mg capsule RxNorm: 347234 1 Capsule(s) PO Q12H 06/21/20 18 2017 Inactive Singulair 10 mg tablet RxNorm: 283111 1 Tablet(s) PO daily 06/14/20 18 2018 Inactive Ventolin HFA 90 mcg/actuation aerosol inhaler RxNorm: 6767683 2 Puff(s) INH QID 06/14/20 18 2018 Inactive Prozac 10 mg capsule RxNorm: 220492 1 Capsule(s) PO daily 06/14/20 18 2017 Inactive Singulair 10 mg tablet RxNorm: 113979 1 Tablet(s) PO daily 06/14/20 18 2017 Inactive buspirone 7.5 mg tablet RxNorm: 828413 1 Tablet(s) PO BID 06/14/20 18 2017 Inactive Neilmed Pediatric Sinus Rinse Refill packet RxNorm: 1 Unit Dose NASAL PRN 05/31/20 18 2021 Inactive Aleve 220 mg capsule RxNorm: 2324493 1 Capsule(s) PO BID 05/31/20 18 2018 Inactive diclofenac sodium 75 mg tablet,delayed release RxNorm: 257198 1 Tablet(s) PO BID 05/31/20 18 2017 Inactive lisinopril 2.5 mg tablet RxNorm: 718736 1 Tablet(s) PO daily 05/31/20 18 2017 Inactive metoprolol succinate ER 50 mg tablet,extended release 24 hr RxNorm: 672420 1 Tablet(s) PO daily 05/31/20 18 2017 Inactive levothyroxine 50 mcg tablet RxNorm: 492444 1 Tablet(s) PO daily 05/31/20 18 2017 Inactive TRUEplus Lancets 30 gauge RxNorm: 1 Lancets Miscellaneous QAM 05/31/20 18 2017 Inactive 100/box Ventolin HFA 90 mcg/actuation aerosol inhaler RxNorm: 019285 2 Puff(s) INH QID 05/31/20 18 2017 Inactive ranitidine 150 mg tablet RxNorm: 152902 1 Tablet(s) PO BID 05/31/20 18 2017 Inactive gabapentin 300 mg capsule RxNorm: 122755 1 Capsule(s) PO TID as needed 05/31/20 18 2017 Inactive atorvastatin 20 mg tablet RxNorm: 554981 1 Tablet(s) PO QHS 05/31/20 18 2017 Inactive True Metrix Glucose Test Strip RxNorm: 1 Test Strips Miscellaneous QAM 05/31/20 18 2017 Inactive 50/container Calcium 600-D3 Plus 600 mg calcium-800 unit-50 mg tablet RxNorm: 1 Tablet(s) PO daily take an additonal tablet for itching. 05/31/20 18 2017 Inactive hydrochlorothiazide 12.5 mg tablet RxNorm: 453194 1 Tablet(s) PO QAM 05/31/20 18 2017 Inactive Flintstones Complete (iron) 18 mg iron chewable tablet RxNorm: 1 Tablet(s) PO daily 05/31/20 18 2017 Inactive True Metrix Glucose Meter RxNorm: miscellaneous 08/17/20 19 2018 Inactive loperamide 2 mg tablet RxNorm: 231947 oral 09/29/20 19 2018 Inactive d-mannose oral [...] Pending Ophthalmology Referral InformationReferralInitiatedReferral: [facility] WPtel: [address] [place] [address] USWriter placed a call out to the patient to notify her that it has been recommended that she be seenby 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 Patient agreed to be seen, does not have a provider of choice and no transportationissues. Penetration Tester faxed referral and clinical notes to [facility] in [place], [place] near the patient's home. Patient to [...] seen and prefers a provider in the [place] or [place] area. Penetration Tester placed a call out to everyone listed in the area and the only location that was able to accept the patient's insurance was [place] [address] [place] [address] and spoke with Maylin. Maylin asked that the patient's referral, face sheet and visit notes be faxed to . Penetration Tester faxed over requested documents. Patient appointment confirmation letter generated and mailed to her home address. Patient to call to schedule an appointment.ProcessedReferral: [facility] WPtel: [address] [facility] [address] [place] USPatient notified that it has been advised that she be seen by Neurology. Patient agreed to be seen and prefers to be seen by a provider in the [place], [place] area. Patient denies any concerns with transportation, and prefers to schedule her own appointment. Penetration Tester placed a call out to [facility] and spoke with Neeraj P: who confirmed that their office is able to acceptnew patients and the patient's insurance. After confirming the providers fax number, typewriter mechanic faxed over the patient's referral, and most [...]
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
--- OUTSIDE RECORDS SUMMARY | 2018-09-23 20:00 | XMS_ITS | CCD ---
Author Name Viktoriya BOWMAN, Dr Lee Address [facility] [address] [address] Phone Organization [facility] [facility] Phone Care Team Providers Care Rn Diabetes Educator Name Role Phone Palomo PRESS TOOL MAKER, Anna Primary Care Provider Unav ailable Unavailable Chronic Care Management Unavaila ble Summary Purpose DataExchange Insurance Providers Payer name Policy type / Coverage type Covered republican ID Effective Begin Date Effective End Date SUKI [employer] [id number] Unknown Unknown Family history Mother Diagnosis Age [...] 05/31/2018 Education level Unknown Some High School 10th05/31/20182040GcxhdjtohfGakobrxWzxhjwfunl18/29/2018Tobacco historySNOMED CT: 916448289Kad never smoked or chewed dnkcqqy6105/31/2018Alcohol historySNOMED CT: 964469835Grxox drinks azigycr1705/31/2018Has the patient ever used illegal drugs? UnknownHas never used illegal drugs05/31/2018DNR Order/ Advanced Directive UnknownFull Code05/31/2018 Allergies, Adverse Reactions, Alerts Substance Reaction Codes Entered Date Inactivated Date Status *No known food allergies Kinvodc3009/06/2018No Inactive DateActiveMethylprednisolonehivesRxNorm: 6902 09/06/2018No Inactive DateActive Problems Condition Codes Effective Dates Condition St atus Acute upper respiratory infection, unspe cified ICD-10: J06.9 ICD-9: 465.912ActiveAdjustment disorder with mixed anxiety and depressed moodICD-10: F43.23 ICD-9: 309.2812ActiveChronic kidney disease, unspecifiedICD-10: N18.9 ICD-9: 585.912ActiveEncounter for screening, unspecifiedICD-10: Z13.9 ICD-9: V82.9111/06/2017ActiveEssential (primary) hypertensionICD-10: I10 ICD-9: 401.9111/06/2017ActiveHypothyroidism, unspecifiedICD-10: E03.9 ICD-9: 244.9111/06/2017ActivePost-traumatic stress disorder, unspecifiedICD-10: F43.10 ICD-9: 309.8112ActiveType 2 diabetes mellitus without complicationsICD- 10: E11.9 ICD-9: 250.0012ActiveUnspecified asthma, uncomplicatedICD-10: J45.909 ICD-9: 493.9011ActiveWheezingICD-10: R06.2 ICD-9: 786.0711ActiveEdema, unspecifiedICD-10: R60.9 ICD-9: 782.310ActiveLong term (current) use of non-steroidal anti- inflammatories (NSAID)ICD-10: Z79.1 ICD-9: V58.6409ActiveAbnormal electrocardiogram [ECG] [EKG]ICD-10: R94.31 ICD-9: 794.3108ActiveBody mass index (BMI) 50-59.9 , adultICD-10: Z68.43 ICD-9: V85.4308ActiveHyperlipidemia, unspecifiedICD-10: E78.5 ICD-9: 272.408ActivePolyneuropathy, unspecifiedICD-10: G62.9 ICD-9: 356.908Active Medications Medication Codes Instructions Start Date Stop Date Status Fill Instructions Guaiasorb DM 10 mg-100 mg/5 mL oral liquid RxNorm: 400935 10 Milliliter(s) PO As needed every 4 hr 09/24/20 18 2018 Inactive Vicks Vaporub 4.7 %-1.2 %-2.6 % topical ointment RxNorm: 9819319 1 Application TOP TID 09/24/20 18 2018 Inactive levmetamfetamine 50 mg nasal inhaler RxNorm: 1 Unit(s) NASAL Q3-4H 09/24/20 18 2017 Inactive sertraline 50 mg tablet RxNorm: 048558 1 Tablet(s) PO daily 09/09/20 18 2018 Inactive Please note dose trazodone 50 mg tablet RxNorm: 067887 1 Tablet(s) PO QHS 09/06/20 18 2018 Inactive sertraline 50 mg tablet RxNorm: 557226 1 Tablet(s) PO daily 09/06/20 18 2017 Inactive amoxicillin 500 mg tablet RxNorm: 159064 1 Tablet(s) PO Q12H 08/31/20 18 2017 Inactive albuterol sulfate 2.5 mg/3 mL (0.083 %) solution for nebulization RxNorm: 121431 1 Vial INH QID 08/10/20 18 2018 Inactive 60/box. Please do not fill early. Please do not auto refill. buspirone 7.5 mg tablet RxNorm: 433048 1 Tablet(s) PO BID 08/09/20 18 2018 Inactive Prozac 10 mg capsule RxNorm: 295394 1 Capsule(s) PO daily 08/09/20 18 2017 Inactive gabapentin 300 mg capsule RxNorm: 055700 1 Capsule(s) PO TID as needed 08/01/20 18 2018 Inactive hydrochlorothiazide 12.5 mg tablet RxNorm: 524579 1 Tablet(s) PO QAM 08/01/20 18 2018 Inactive ranitidine 150 mg tablet RxNorm: 846663 1 Tablet(s) PO BID 08/01/20 18 2018 Inactive Macrobid 100 mg capsule RxNorm: 274265 1 Capsule(s) PO Q12H 06/21/20 18 2017 Inactive Singulair 10 mg tablet RxNorm: 987952 1 Tablet(s) PO daily 06/14/20 18 2018 Inactive Ventolin HFA 90 mcg/actuation aerosol inhaler RxNorm: 5199284 2 Puff(s) INH QID 06/14/20 18 2018 Inactive Singulair 10 mg tablet RxNorm: 764768 1 Tablet(s) PO daily 06/14/20 18 2017 Inactive buspirone 7.5 mg tablet RxNorm: 349761 1 Tablet(s) PO BID 06/14/20 18 2017 Inactive Prozac 10 mg capsule RxNorm: 085296 1 Capsule(s) PO daily 06/14/20 18 2017 Inactive Neilmed Pediatric Sinus Rinse Refill packet RxNorm: 1 Unit Dose NASAL PRN 05/31/20 18 2021 Inactive Aleve 220 mg capsule RxNorm: 8386233 1 Capsule(s) PO BID 05/31/20 18 2018 Inactive diclofenac sodium 75 mg tablet,delayed release RxNorm: 708786 1 Tablet(s) PO BID 05/31/20 18 2017 Inactive lisinopril 2.5 mg tablet RxNorm: 366203 1 Tablet(s) PO daily 05/31/20 18 2017 Inactive metoprolol succinate ER 50 mg tablet,extended release 24 hr RxNorm: 289368 1 Tablet(s) PO daily 05/31/20 18 2017 Inactive levothyroxine 50 mcg tablet RxNorm: 640503 1 Tablet(s) PO daily 05/31/20 18 2017 Inactive TRUEplus Lancets 30 gauge RxNorm: 1 Lancets Miscellaneous QAM 05/31/20 18 2017 Inactive 100/box Ventolin HFA 90 mcg/actuation aerosol inhaler RxNorm: 085217 2 Puff(s) INH QID 05/31/20 18 2017 Inactive ranitidine 150 mg tablet RxNorm: 105800 1 Tablet(s) PO BID 05/31/20 18 2017 Inactive gabapentin 300 mg capsule RxNorm: 275640 1 Capsule(s) PO TID as needed 05/31/20 18 2017 Inactive atorvastatin 20 mg tablet RxNorm: 370841 1 Tablet(s) PO QHS 05/31/20 18 2017 Inactive True Metrix Glucose Test Strip RxNorm: 1 Test Strips Miscellaneous QA 05/31/20 18 2017 Inactive 50/container Calcium 600-D3 Plus 600 mg calcium-800 unit-50 mg tablet RxNorm: 1 Tablet(s) PO daily take an additonal tablet for itching. 05/31/20 18 2017 Inactive hydrochlorothiazide 12.5 mg tablet RxNorm: 482979 1 Tablet(s) PO QAM 05/31/20 18 2017 Inactive Flintstones Complete (iron) 18 mg iron chewable tablet RxNorm: 1 Tablet(s) PO daily 05/31/20 18 2017 Inactive True Metrix Glucose Meter RxNorm: miscellaneous 08/17/20 19 2018 Inactive loperamide 2 mg tablet RxNorm: 604935 oral 09/29/20 19 2018 Inactive d-mannose oral powder RxNorm: PO 18 2021 Inactive Medication Administered No Medication Administered data Reason For Visit No Reason For Visit data Plan of Care Planned Activity Notes Codes Status Date Patient Education: Patient Medication Summary Tnurfwpsr43/23/2018Referral: Pending Gynecology Referral InformationReferral ProcessedReferral: Pending Pulmonology Referral InformationReferralProcessed Referral: Pending Psychiatry Referral InformationReferralInitiatedReferral: Pending Respiratory Services Referral InformationReferralInitiatedReferral: Pending Ophthalmology Referral InformationReferralInitiatedReferral: [facility] WPtel: [address] [place] [address] [address] [place] [address] USWriter placed a call out to the patient to notify her that it has been recommended that she be seenby 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 Patient agreed to be seen, does not have a provider of choice and no transportationissues. Pick Up Worker faxed referral and clinical notes to [facility] in [place], [place] near the patient's home. Patient to [...] seen and prefers a provider in the [place] or [place] area. Pick Up Worker placed a call out to everyone listed in the area and the only location that was able to accept the patient's insurance was [place] [address] [place] [address] and spoke with Maylin. Maylin asked that the patient's referral, face sheet and visit notes be faxed to . Pick Up Worker faxed over requested documents. Patient appointment confirmation letter generated and mailed to her home address. Patient to call to schedule an appointment.ProcessedReferral: [facility] WPtel: [address] [place], [place] [address] USPatient notified that it has been advised that she be seen by Neurology. Patient agreed to be seen and prefers to be seen by a provider in the [place], [place] area. Patient denies any concerns with transportation, and prefers to schedule her own appointment. Pick Up Worker placed a call out to [facility] and spoke with Neeraj P: who confirmed that their office is able to acceptnew patients and the patient's insurance. After confirming the providers fax number, job specification writer faxed over the patient's referral, and [...]
--- OUTSIDE RECORDS SUMMARY | 2018-09-27 20:00 | XMS_ITS | CCD ---
Author Name Ursula Palafox NP y Address [address] [facility] [address] [place] [address] Phone Organization [email or web address] Phone Care Team Providers Care Water Tanker Driver Name Role Phone Palomo KING, Anna Primary Care Provider Unav ailable Unavailable Chronic Care Management Unavaila ble Summary Purpose DataExchange Insurance Providers Payer name Policy type / Coverage type Covered libertarian ID Effective Begin Date Effective End Date SUKI BUTTS [facility] [id number] Unknown Unknown Family history Mother Diagnosis Age [...] 05/31/2018 Education level Unknown Some High School 10th05/31/20186425FmncfkjuhlVfbliqhRvdoadbpmk74/29/2018Tobacco historySNOMED CT: 118230185Yen never smoked or chewed hzjvkra6905/31/2018Alcohol historySNOMED CT: 337876984Ilzzk drinks ttacupa6705/31/2018Has the patient ever used illegal drugs? UnknownHas never used illegal drugs05/31/2018DNR Order/ Advanced Directive UnknownFull Code05/31/2018 Allergies, Adverse Reactions, Alerts Substance Reaction Codes Entered Date Inactivated Date Status *No known food allergies Ayndwfg9409/06/2018No Inactive DateActiveMethylprednisolonehivesRxNorm: 6902 09/06/2018No Inactive DateActive Problems [...] Fill Instructions cetirizine 10 mg tablet RxNorm: 4975096 1 Tablet(s) PO daily 09/28/20 18 2018 Inactive Guaiasorb DM 10 mg-100 mg/5 mL oral liquid RxNorm: 004476 10 Milliliter(s) PO As needed every 4 hr 09/24/20 18 2018 Inactive Vicks Vaporub 4.7 %-1.2 %-2.6 % topical ointment RxNorm: 3192863 1 Application TOP TID 09/24/20 18 2018 Inactive levmetamfetamine 50 mg nasal inhaler RxNorm: 1 Unit(s) NASAL Q3-4H 09/24/20 18 2017 Inactive sertraline 50 mg tablet RxNorm: 678161 1 Tablet(s) PO daily 09/09/20 18 2018 Inactive Please note dose trazodone 50 mg tablet RxNorm: 488204 1 Tablet(s) PO QHS 09/06/20 18 2018 Inactive sertraline 50 mg tablet RxNorm: 144772 1 Tablet(s) PO daily 09/06/20 18 2017 Inactive amoxicillin 500 mg tablet RxNorm: 051096 1 Tablet(s) PO Q12H 08/31/20 18 2017 Inactive albuterol sulfate 2.5 mg/3 mL (0.083 %) solution for nebulization RxNorm: 698593 1 Vial INH QID 08/10/20 18 2018 Inactive 60/box. Please do not fill early. Please do not auto refill. buspirone 7.5 mg tablet RxNorm: 297465 1 Tablet(s) PO BID 08/09/20 18 2018 Inactive Prozac 10 mg capsule RxNorm: 855416 1 Capsule(s) PO daily 08/09/20 18 2017 Inactive gabapentin 300 mg capsule RxNorm: 099495 1 Capsule(s) PO TID as needed 08/01/20 18 2018 Inactive hydrochlorothiazide 12.5 mg tablet RxNorm: 472180 1 Tablet(s) PO QAM 08/01/20 18 2018 Inactive ranitidine 150 mg tablet RxNorm: 451305 1 Tablet(s) PO BID 08/01/20 18 2018 Inactive Macrobid 100 mg capsule RxNorm: 812479 1 Capsule(s) PO Q12H 06/21/20 18 2017 Inactive Singulair 10 mg tablet RxNorm: 747540 1 Tablet(s) PO daily 06/14/20 18 2018 Inactive Ventolin HFA 90 mcg/actuation aerosol inhaler RxNorm: 8776694 2 Puff(s) INH QID 06/14/20 18 2018 Inactive Singulair 10 mg tablet RxNorm: 181367 1 Tablet(s) PO daily 06/14/20 18 2017 Inactive buspirone 7.5 mg tablet RxNorm: 943005 1 Tablet(s) PO BID 06/14/20 18 2017 Inactive Prozac 10 mg capsule RxNorm: 945286 1 Capsule(s) PO daily 06/14/20 18 2017 Inactive Neilmed Pediatric Sinus Rinse Refill packet RxNorm: 1 Unit Dose NASAL PRN 05/31/20 18 2021 Inactive Aleve 220 mg capsule RxNorm: 6735809 1 Capsule(s) PO BID 05/31/20 18 2018 Inactive diclofenac sodium 75 mg tablet,delayed release RxNorm: 465056 1 Tablet(s) PO BID 05/31/20 18 2017 Inactive lisinopril 2.5 mg tablet RxNorm: 719973 1 Tablet(s) PO daily 05/31/20 18 2017 Inactive metoprolol succinate ER 50 mg tablet,extended release 24 hr RxNorm: 004708 1 Tablet(s) PO daily 05/31/20 18 2017 Inactive levothyroxine 50 mcg tablet RxNorm: 310886 1 Tablet(s) PO daily 05/31/20 18 2017 Inactive TRUEplus Lancets 30 gauge RxNorm: 1 Lancets Miscellaneous QAM 05/31/20 18 2017 Inactive 100/box Ventolin HFA 90 mcg/actuation aerosol inhaler RxNorm: 680952 2 Puff(s) INH QID 05/31/20 18 2017 Inactive ranitidine 150 mg tablet RxNorm: 921178 1 Tablet(s) PO BID 05/31/20 18 2017 Inactive gabapentin 300 mg capsule RxNorm: 015345 1 Capsule(s) PO TID as needed 05/31/20 18 2017 Inactive atorvastatin 20 mg tablet RxNorm: 917342 1 Tablet(s) PO QHS 05/31/20 18 2017 Inactive True Metrix Glucose Test Strip RxNorm: 1 Test Strips Miscellaneous QA 05/31/20 18 2017 Inactive 50/container Calcium 600-D3 Plus 600 mg calcium-800 unit-50 mg tablet RxNorm: 1 Tablet(s) PO daily take an additonal tablet for itching. 05/31/20 18 2017 Inactive hydrochlorothiazide 12.5 mg tablet RxNorm: 448355 1 Tablet(s) PO QAM 05/31/20 18 2017 Inactive Flintstones Complete (iron) 18 mg iron chewable tablet RxNorm: 1 Tablet(s) PO daily 05/31/20 18 2017 Inactive True Metrix Glucose Meter RxNorm: miscellaneous 08/17/20 19 2018 Inactive loperamide 2 mg tablet RxNorm: 477900 oral 09/29/20 19 2018 Inactive d-mannose oral powder RxNorm: PO 18 2021 Inactive Medication Administered No Medication Administered data Reason For Visit No Reason For Visit data Plan of Care Planned Activity Notes Codes Status Date Patient Education: Patient Medication Summary Nmsujnfdh74/27/2018Referral: Pending Gynecology Referral InformationReferral ProcessedReferral: Pending Pulmonology Referral InformationReferralProcessed Referral: Pending Psychiatry Referral InformationReferralInitiatedReferral: Pending Respiratory Services Referral InformationReferralInitiatedReferral: Pending Ophthalmology Referral InformationReferralInitiatedReferral: [facility] WPtel: [address] [place] [address] USWriter placed a call out to the patient to notify her that it has been recommended that she be seenby 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 Patient agreed to be seen, does not have a provider of choice and no transportationissues. Clerk Specialist faxed referral and clinical notes to [facility] in [place], [place] near the patient's home. Patient to [...] seen and prefers a provider in the [place] or [place] area. Clerk Specialist placed a call out to everyone listed in the area and the only location that was able to accept the patient's insurance was [place] [address] [place] [address] and spoke with Maylin. Maylin asked that the patient's referral, face sheet and visit notes be faxed to . Clerk Specialist faxed over requested documents. Patient appointment confirmation letter generated and mailed to her home address. Patient to call to schedule an appointment.ProcessedReferral: [facility] WPtel: [address] [facility] [address] [place], [place] [id number] USPatient notified that it has been advised that she be seen by Neurology. Patient agreed to be seen and prefers to be seen by a provider in the [place], [place] area. Patient denies any concerns with transportation, and prefers to schedule her own appointment. Clerk Specialist placed a call out to [facility] and spoke with Neeraj P: who confirmed that their office is able to acceptnew patients and the patient's insurance. After confirming the providers fax number, marine underwriter faxed over the patient's referral, and [...]
--- OUTSIDE RECORDS SUMMARY | 2018-10-05 20:00 | XMS_ITS | CCD ---
Author Name Ursula Palafox NP y Address [address] [place] [address] Phone Organization [id number] Phone Care Team Providers Care Stone Sandblaster Name Role Phone Palomo KING, Anna Primary Care Provider Unav ailable Unavailable Chronic Care Management Unavaila ble Summary Purpose DataExchange Insurance Providers Payer name Policy type / Coverage type Covered constitution party ID Effective Begin Date Effective End Date [employer] [facility] [id number] Unknown Unknown Family history Mother Diagnosis Age [...] 05/31/2018 Education level Unknown Some High School 10th05/31/20180686CcbgreeutoEtewkbuBzcwhyvqmt44/29/2018Tobacco historySNOMED CT: 288417729Zyp never smoked or chewed kdadtdy9205/31/2018Alcohol historySNOMED CT: 492102609Yfrpu drinks bhvcplt0305/31/2018Has the patient ever used illegal drugs? UnknownHas never used illegal drugs05/31/2018DNR Order/ Advanced Directive UnknownFull Code05/31/2018 Allergies, Adverse Reactions, Alerts Substance Reaction Codes Entered Date Inactivated Date Status *No known food allergies Jdvfohr8109/06/2018No Inactive DateActiveMethylprednisolonehivesRxNorm: 6902 09/06/2018No Inactive DateActive Problems Condition Codes Effective Dates Condition St atus Essential (primary) hypertension ICD-10: I10 ICD-9: 401.901ActiveHeadacheICD-10: R51 ICD-9: 784.001ActiveType 2 diabetes mellitus without complicationsICD- 10: E11.9 ICD-9: 250.0001ActiveChronic kidney disease, unspecifiedICD-10: N18.9 ICD-9: 585.912ResolvedAcute upper respiratory infection, unspecifiedICD- 10: J06.9 ICD-9: 465.912ActiveAdjustment disorder with mixed anxiety and depressed moodICD-10: F43.23 ICD-9: 309.2812ActiveEncounter for screening, unspecifiedICD-10: Z13.9 ICD-9: V82.9111/06/2017ActiveHypothyroidism, unspecifiedICD-10: E03.9 ICD-9: 244.9111/06/2017ActivePost-traumatic stress disorder, unspecifiedICD-10: F43.10 ICD-9: 309.8112ActiveUnspecified asthma, uncomplicatedICD-10: J45.909 ICD-9: 493.9011ActiveWheezingICD-10: R06.2 ICD-9: 786.0711ActiveEdema, unspecifiedICD-10: R60.9 ICD-9: 782.310ActiveLong term (current) use of non-steroidal anti- inflammatories (NSAID)ICD-10: Z79.1 ICD-9: V58.6409ActiveAbnormal electrocardiogram [ECG] [EKG]ICD-10: R94.31 ICD-9: 794.3108ActiveBody mass index (BMI) 50-59.9 , adultICD-10: Z68.43 ICD-9: V85.4308ActiveHyperlipidemia, unspecifiedICD-10: E78.5 ICD-9: 272.408ActivePolyneuropathy, unspecifiedICD-10: G62.9 ICD-9: 356.908Active Medications Medication Codes Instructions Start Date Stop Date Status Fill Instructions cetirizine 10 mg tablet RxNorm: 1515000 1 Tablet(s) PO daily 09/28/20 18 2018 Inactive Guaiasorb DM 10 mg-100 mg/5 mL oral liquid RxNorm: 852924 10 Milliliter(s) PO As needed every 4 hr 09/24/20 18 2018 Inactive Vicks Vaporub 4.7 %-1.2 %-2.6 % topical ointment RxNorm: 2045855 1 Application TOP TID 09/24/20 18 2018 Inactive levmetamfetamine 50 mg nasal inhaler RxNorm: 1 Unit(s) NASAL Q3-4H 09/24/20 18 2017 Inactive sertraline 50 mg tablet RxNorm: 177942 1 Tablet(s) PO daily 09/09/20 18 2018 Inactive Please note dose trazodone 50 mg tablet RxNorm: 579413 1 Tablet(s) PO QHS 09/06/20 18 2018 Inactive sertraline 50 mg tablet RxNorm: 779514 1 Tablet(s) PO daily 09/06/20 18 2017 Inactive amoxicillin 500 mg tablet RxNorm: 995917 1 Tablet(s) PO Q12H 08/31/20 18 2017 Inactive albuterol sulfate 2.5 mg/3 mL (0.083 %) solution for nebulization RxNorm: 902032 1 Vial INH QID 08/10/20 18 2018 Inactive 60/box. Please do not fill early. Please do not auto refill. buspirone 7.5 mg tablet RxNorm: 073669 1 Tablet(s) PO BID 08/09/20 18 2018 Inactive Prozac 10 mg capsule RxNorm: 209109 1 Capsule(s) PO daily 08/09/20 18 2017 Inactive gabapentin 300 mg capsule RxNorm: 789802 1 Capsule(s) PO TID as needed 08/01/20 18 2018 Inactive hydrochlorothiazide 12.5 mg tablet RxNorm: 093956 1 Tablet(s) PO QAM 08/01/20 18 2018 Inactive ranitidine 150 mg tablet RxNorm: 187674 1 Tablet(s) PO BID 08/01/20 18 2018 Inactive Macrobid 100 mg capsule RxNorm: 697664 1 Capsule(s) PO Q12H 06/21/20 18 2017 Inactive Singulair 10 mg tablet RxNorm: 524529 1 Tablet(s) PO daily 06/14/20 18 2018 Inactive Ventolin HFA 90 mcg/actuation aerosol inhaler RxNorm: 8974512 2 Puff(s) INH QID 06/14/20 18 2018 Inactive Singulair 10 mg tablet RxNorm: 692227 1 Tablet(s) PO daily 06/14/20 18 2017 Inactive buspirone 7.5 mg tablet RxNorm: 857468 1 Tablet(s) PO BID 06/14/20 18 2017 Inactive Prozac 10 mg capsule RxNorm: 800725 1 Capsule(s) PO daily 06/14/20 18 2017 Inactive Neilmed Pediatric Sinus Rinse Refill packet RxNorm: 1 Unit Dose NASAL PRN 05/31/20 18 2021 Inactive Aleve 220 mg capsule RxNorm: 4434414 1 Capsule(s) PO BID 05/31/20 18 2018 Inactive diclofenac sodium 75 mg tablet,delayed release RxNorm: 352600 1 Tablet(s) PO BID 05/31/20 18 2017 Inactive lisinopril 2.5 mg tablet RxNorm: 168810 1 Tablet(s) PO daily 05/31/20 18 2017 Inactive metoprolol succinate ER 50 mg tablet,extended release 24 hr RxNorm: 308052 1 Tablet(s) PO daily 05/31/20 18 2017 Inactive levothyroxine 50 mcg tablet RxNorm: 191150 1 Tablet(s) PO daily 05/31/20 18 2017 Inactive TRUEplus Lancets 30 gauge RxNorm: 1 Lancets Miscellaneous QAM 05/31/20 18 2017 Inactive 100/box Ventolin HFA 90 mcg/actuation aerosol inhaler RxNorm: 771623 2 Puff(s) INH QID 05/31/20 18 2017 Inactive ranitidine 150 mg tablet RxNorm: 655188 1 Tablet(s) PO BID 05/31/20 18 2017 Inactive gabapentin 300 mg capsule RxNorm: 755280 1 Capsule(s) PO TID as needed 05/31/20 18 2017 Inactive atorvastatin 20 mg tablet RxNorm: 704955 1 Tablet(s) PO QHS 05/31/20 18 2017 Inactive True Metrix Glucose Test Strip RxNorm: [facility] 05/31/20 18 2017 Inactive 50/container Calcium 600-D3 Plus 600 mg calcium-800 unit-50 mg tablet RxNorm: 1 Tablet(s) PO daily take an additonal tablet for itching. 05/31/20 18 2017 Inactive hydrochlorothiazide 12.5 mg tablet RxNorm: 172520 1 Tablet(s) PO QAM 05/31/20 18 2017 Inactive Flintstones Complete (iron) 18 mg iron chewable tablet RxNorm: 1 Tablet(s) PO daily 05/31/20 18 2017 Inactive True Metrix Glucose Meter RxNorm: miscellaneous 08/17/20 19 2018 Inactive loperamide 2 mg tablet RxNorm: 860249 oral 09/29/20 19 2018 Inactive d-mannose oral powder RxNorm: PO 18 2021 Inactive Medication Administered No Medication Administered data Vital Signs Date Vital 10/04/2018 Blood Pressure 1: 118/74 Code: 8480-6 BMI: 55.5 Code: 09252-7 Heart Rate 1: 74 bpm Height: 4'11 Code: 8302-2 Respiratory Rate: 18 bpm SpO2: 98% Temperature: 36.9 (C) / 98.4 (F) Weight: 275 lbs Code: 97861-3 Reason For Visit Reason For Visit Effective Dates Notes appropriateness for house call services 10/04/19 19 hypertension 10/04/2018 diabetes mellitus 10/04/2018 headache 10/04/2018 Encounters Encounter Performer Location Location Address Codes Magdi e HOME VISIT EST PATIENT Diagnosis: Type 2 diabetes mellitus without complications[ICD10: E11.9] Diagnosis: Essential (primary) hypertension[ICD10: I10] Diagnosis: Chronic kidney disease, unspecified[ICD10: N18.9] Diagnosis: Headache[ICD10: R51]Rasta Sesay [id number] [place], [place] [address]ECN-5: [id number] Plan of Care Planned Activity Notes Codes [...] resolved R51-784.0 Headache 09/21/18: ambulance admission to [facility]. pt stated she hadbeen out of medication for 3 days. Pt states that she didn't get to the natural headache medication: the only thing that works for her. F43.23- 309.28 Adjustment disorder with mixed anxiety and depressed [...] charges. Reduced to mistameaor -3 10/16/18 Court. 1/22/, may have to go to court . 09/20/18: gets sentenced for raping their daughter, probably get sentenced to 6-8 yrs in halfway. I'm going to stand right beside him no matter what buspirone 7.5 mg tablet 1 Tablet(s) PO BID 30 days Refills: 1 Qty: 60 [06/14/2018 - 08/12/2018] : will evaluate for increase at next visit Prozac 10 mg capsule 1 Capsule(s) PO daily 30 days Refills: 1 Qty: 30 [06/14/2018 - 08/12/2018] POC: being managed by [facility] Nitesh CT Seeing counselor at [facility] also J45.909-493.90 Unspecified asthma, uncomplicated R06.2-786.07 [...] T-abnormality - Possible Anterior ischemia pattern. ABNORMAL 10/04/2018Patient Education: Patient Medication RvtypfxJmrepyupm30/02/2019 Patient Education: LolfdxndcZgsdzhcdo96/02/2019Patient Education: Hypertension Ddkixivcw91/02/2019Patient Education: ZkaqfqevGvmqjwiph14/02/2019Referral: Pending Gynecology Referral InformationReferralProcessedReferral: Pending Pulmonology Referral InformationReferralProcessedReferral: Pending Psychiatry Referral InformationReferralInitiatedReferral: Pending Respiratory Services Referral InformationReferralInitiatedReferral: Pending Ophthalmology Referral InformationReferralInitiatedReferral: [facility] WPtel: [address] [id number] USWriter placed a call out to the patient to notify her that it has been recommended that she be seenby 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 Patient agreed to be seen, does not have a provider of choice and no transportationissues. Scheduler Maintenance faxed referral and clinical notes to [facility] in [place], [place] near the patient's home. Patient to [...] seen and prefers a provider in the [place] or [place] area. Scheduler Maintenance placed a call out to everyone listed in the area and the only location that was able to accept the patient's insurance was [address] [address] and spoke with Maylin. Maylin asked that the patient's referral, face sheet and visit notes be faxed to . Scheduler Maintenance faxed over requested documents. Patient appointment confirmation letter generated and mailed to her home address. Patient to call to schedule an appointment.[facility]Ref[facility] WPtel[facility] [address] [place], [place] [id number] USPatient notified that it has been advised that she be seen by Neurology. Patient agreed to be seen and prefers to be seen by a provider in the [place], [place] area. Patient denies any concerns with transportation, and prefers to schedule her own appointment. Scheduler Maintenance [facility] and spoke with Neeraj P: who confirmed that their office is able to acceptnew patients and the patient's insurance. After confirming the providers fax number, tag writer faxed over the patient's referral, and [...] resolved R51-784.0 Headache 09/21/18: ambulance admission to [facility]. pt stated she had been [...] probably get sentenced to 6-8 yrs in halfway. I'm going to stand right beside him no matter what buspirone 7.5 mg tablet; 1 Tablet(s) PO BID; 30 days; Refills: 1; Qty: 60 [06/14/2018 - 08/12/2018];: will evaluate for increase at next visit Prozac 10 mg capsule; 1 Capsule(s) PO daily; 30 days; Refills: 1; Qty: 30 [06/14/2018 - 08/12/2018] POC: being managed by [facility] BAUDILIO Dowling Seeing counselor at [facility] also J45.909-493.90 Unspecified asthma, uncomplicated R06.2-786.07 [...]
--- OUTSIDE RECORDS SUMMARY | 2018-10-11 20:00 | XMS_ITS | CCD ---
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 Passenger Car Inspector Name Role Phone Palomo KING, Anna Primary Care Provider Unav ailable Unavailable Chronic Care Management Unavaila ble Summary Purpose DataExchange Insurance Providers Payer name Policy type / Coverage type Covered green party ID Effective Begin Date Effective End Date [employer] [facility] [id number] Unknown Unknown Family history Mother Diagnosis Age [...] 05/31/2018 Education level Unknown Some High School 10th05/31/20184727HijmxtlwygDbnnkmhSkowhfygcb39/29/2018Tobacco historySNOMED CT: 042920493Mvx never smoked or chewed gyxgovm6805/31/2018Alcohol historySNOMED CT: 797808898Htpcn drinks rgoclpc9705/31/2018Has the patient ever used illegal drugs? UnknownHas never used illegal drugs05/31/2018DNR Order/ Advanced Directive UnknownFull Code05/31/2018 Allergies, Adverse Reactions, Alerts Substance Reaction Codes Entered Date Inactivated Date Status *No known food allergies Fzcmjri7309/06/2018No Inactive DateActiveMethylprednisolonehivesRxNorm: 6902 09/06/2018No Inactive DateActive Problems Condition Codes Effective Dates Condition St atus Essential (primary) hypertension ICD-10: I10 ICD-9: 401.901/10/2018ActiveHeadacheICD-10: R51 ICD-9: 784.001/10/2018ActiveType 2 diabetes mellitus without complicationsICD- 10: E11.9 ICD-9: 250.0001ActiveChronic kidney disease, unspecifiedICD-10: N18.9 ICD-9: 585.9111/06/2017ResolvedAcute upper respiratory infection, unspecifiedICD- 10: J06.9 ICD-9: 465.9111/24/2017ActiveAdjustment disorder with mixed anxiety and depressed moodICD-10: F43.23 ICD-9: 309.2812ActiveEncounter for screening, unspecifiedICD-10: Z13.9 ICD-9: V82.9111/06/2017ActiveHypothyroidism, unspecifiedICD-10: E03.9 ICD-9: 244.9111/06/2017ActivePost-traumatic stress disorder, unspecifiedICD-10: F43.10 ICD-9: 309.8112ActiveUnspecified asthma, uncomplicatedICD-10: J45.909 ICD-9: 493.9008/08/2018ActiveWheezingICD-10: R06.2 ICD-9: 786.0711ActiveEdema, unspecifiedICD-10: R60.9 ICD-9: 782.310ActiveLong term (current) use of non-steroidal anti- inflammatories (NSAID)ICD-10: Z79.1 ICD-9: V58.6409ActiveAbnormal electrocardiogram [ECG] [EKG]ICD-10: R94.31 ICD-9: 794.31005/30/2018ActiveBody mass index (BMI) 50-59.9 , adultICD-10: Z68.43 ICD-9: V85.4308ActiveHyperlipidemia, unspecifiedICD-10: E78.5 ICD-9: 272.408ActivePolyneuropathy, unspecifiedICD-10: G62.9 ICD-9: 356.908Active Medications Medication Codes Instructions Start Date Stop Date Status Fill Instructions buspirone 7.5 mg tablet RxNorm: 745274 1 Tablet(s) PO BID 10/12/19 19 2018 Inactive cetirizine 10 mg tablet RxNorm: 7654279 1 Tablet(s) PO daily 09/28/20 18 2018 Inactive Guaiasorb DM 10 mg-100 mg/5 mL oral liquid RxNorm: 658540 10 Milliliter(s) PO As needed every 4 hr 09/24/20 18 2018 Inactive Vicks Vaporub 4.7 %-1.2 %-2.6 % topical ointment RxNorm: 1340226 1 Application TOP TID 09/24/20 18 2018 Inactive levmetamfetamine 50 mg nasal inhaler RxNorm: 1 Unit(s) NASAL Q3-4H 09/24/20 18 2017 Inactive sertraline 50 mg tablet RxNorm: 097268 1 Tablet(s) PO daily 09/09/20 18 2018 Inactive Please note dose trazodone 50 mg tablet RxNorm: 627329 1 Tablet(s) PO QHS 09/06/20 18 2018 Inactive sertraline 50 mg tablet RxNorm: 997186 1 Tablet(s) PO daily 09/06/20 18 2017 Inactive amoxicillin 500 mg tablet RxNorm: 257292 1 Tablet(s) PO Q12H 08/31/20 18 2017 Inactive albuterol sulfate 2.5 mg/3 mL (0.083 %) solution for nebulization RxNorm: 564118 1 Vial INH QID 08/10/20 18 2018 Inactive 60/box. Please do not fill early. Please do not auto refill. buspirone 7.5 mg tablet RxNorm: 830423 1 Tablet(s) PO BID 08/09/20 18 2018 Inactive Prozac 10 mg capsule RxNorm: 050580 1 Capsule(s) PO daily 08/09/20 18 2017 Inactive gabapentin 300 mg capsule RxNorm: 071679 1 Capsule(s) PO TID as needed 08/01/20 18 2018 Inactive hydrochlorothiazide 12.5 mg tablet RxNorm: 923686 1 Tablet(s) PO QAM 08/01/20 18 2018 Inactive ranitidine 150 mg tablet RxNorm: 468738 1 Tablet(s) PO BID 08/01/20 18 2018 Inactive Macrobid 100 mg capsule RxNorm: 070273 1 Capsule(s) PO Q12H 06/21/20 18 2017 Inactive Singulair 10 mg tablet RxNorm: 683872 1 Tablet(s) PO daily 06/14/20 18 2018 Inactive Ventolin HFA 90 mcg/actuation aerosol inhaler RxNorm: 2274653 2 Puff(s) INH QID 06/14/20 18 2018 Inactive Singulair 10 mg tablet RxNorm: 391409 1 Tablet(s) PO daily 06/14/20 18 2017 Inactive buspirone 7.5 mg tablet RxNorm: 859323 1 Tablet(s) PO BID 06/14/20 18 2017 Inactive Prozac 10 mg capsule RxNorm: 416317 1 Capsule(s) PO daily 06/14/20 18 2017 Inactive Neilmed Pediatric Sinus Rinse Refill packet RxNorm: 1 Unit Dose NASAL PRN 05/31/20 18 2021 Inactive Aleve 220 mg capsule RxNorm: 5225639 1 Capsule(s) PO BID 05/31/20 18 2018 Inactive diclofenac sodium 75 mg tablet,delayed release RxNorm: 340500 1 Tablet(s) PO BID 05/31/20 18 2017 Inactive lisinopril 2.5 mg tablet RxNorm: 606527 1 Tablet(s) PO daily 05/31/20 18 2017 Inactive metoprolol succinate ER 50 mg tablet,extended release 24 hr RxNorm: 706537 1 Tablet(s) PO daily 05/31/20 18 2017 Inactive levothyroxine 50 mcg tablet RxNorm: 930754 1 Tablet(s) PO daily 05/31/20 18 2017 Inactive TRUEplus Lancets 30 gauge RxNorm: 1 Lancets Miscellaneous QAM 05/31/20 18 2017 Inactive 100/box Ventolin HFA 90 mcg/actuation aerosol inhaler RxNorm: 048131 2 Puff(s) INH QID 05/31/20 18 2017 Inactive ranitidine 150 mg tablet RxNorm: 070140 1 Tablet(s) PO BID 05/31/20 18 2017 Inactive gabapentin 300 mg capsule RxNorm: 073641 1 Capsule(s) PO TID as needed 05/31/20 18 2017 Inactive atorvastatin 20 mg tablet RxNorm: 463413 1 Tablet(s) PO QHS 05/31/20 18 2017 Inactive True Metrix Glucose Test Strip RxNorm: 1 Test Strips Miscellaneous QA 05/31/20 18 2017 Inactive 50/container Calcium 600-D3 Plus 600 mg calcium-800 unit-50 mg tablet RxNorm: 1 Tablet(s) PO daily take an additonal tablet for itching. 05/31/20 18 2017 Inactive hydrochlorothiazide 12.5 mg tablet RxNorm: 131293 1 Tablet(s) PO QAM 05/31/20 18 2017 Inactive Flintstones Complete (iron) 18 mg iron chewable tablet RxNorm: 1 Tablet(s) PO daily 05/31/20 18 2017 Inactive True Metrix Glucose Meter RxNorm: miscellaneous 08/17/20 19 2018 Inactive loperamide 2 mg tablet RxNorm: 010780 oral 09/29/20 19 2018 Inactive d-mannose oral powder RxNorm: PO 18 2021 Inactive Medication Administered No Medication Administered data Reason For Visit No Reason For Visit data Plan of Care Planned Activity Notes Codes Status Date Referral: Pending Gynecology Referral Informatio n Referral ProcessedReferral: Pending Pulmonology Referral InformationReferralProcessed Referral: Pending Psychiatry Referral InformationReferralInitiatedReferral: Pending Respiratory Services Referral InformationReferralInitiatedReferral: Pending Ophthalmology Referral InformationReferralInitiatedReferral: [facility] WPtel: [address] [place] [address] [address] [id number] USWriter placed a call out to the patient to notify her that it has been recommended that she be seenby 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 Patient agreed to be seen, does not have a provider of choice and no transportationissues. Pawn Broker faxed referral and clinical notes to [facility] [place] in [place], [place] near the patient's home. Patient to [...] seen and prefers a provider in the [place] or [place] area. Pawn Broker placed a call out to everyone listed in the area and the only location that was able to accept the patient's insurance was [place] [address] [place] [address] and spoke with Maylin. Maylin asked that the patient's referral, face sheet and visit notes be faxed to . Pawn Broker faxed over requested documents. Patient appointment confirmation letter generated and mailed to her home address. Patient to call to schedule an appointment.ProcessedReferral: [facility] WPtel: [address] [place] [address] [place], [place] [id number] USPatient notified that it has been advised that she be seen by Neurology. Patient agreed to be seen and prefers to be seen by a provider in the [place], [place] area. Patient denies any concerns with transportation, and prefers to schedule her own appointment. Pawn Broker placed a call out to [facility] and spoke with Neeraj P: who confirmed that their office is able to acceptnew patients and the patient's insurance. After confirming the providers fax number, medical underwriter faxed over the patient's referral, and [...]
--- OUTSIDE RECORDS SUMMARY | 2018-10-20 20:00 | XMS_ITS | CCD ---
Author Name Ursula Palafox NP y Address [address] [facility] [address] [place] [address] Phone Organization [facility] Phone Care Team Providers Care Draw In Hand Name Role Phone Palomo KING, Anna Primary Care Provider Unav ailable Unavailable Chronic Care Management Unavaila ble Summary Purpose DataExchange Insurance Providers Payer name Policy type / Coverage type Covered alliance party ID Effective Begin Date Effective End Date SUKI BUTTS [facility] [id number] Unknown Unknown Family history Mother Diagnosis Age [...] 05/31/2018 Education level Unknown Some High School 10th05/31/20183372OwdtsqozzlLgaawrgLgwkksjyiv18/29/2018Tobacco historySNOMED CT: 483500783Apd never smoked or chewed jkreedf9605/31/2018Alcohol historySNOMED CT: 384761144Mrcew drinks hqkzdby7705/31/2018Has the patient ever used illegal drugs? UnknownHas never used illegal drugs05/31/2018DNR Order/ Advanced Directive UnknownFull Code05/31/2018 Allergies, Adverse Reactions, Alerts Substance Reaction Codes Entered Date Inactivated Date Status *No known food allergies Ypshwdn7109/06/2018No Inactive DateActiveMethylprednisolonehivesRxNorm: 6902 09/06/2018No Inactive DateActive Problems Condition Codes Effective Dates Condition St atus Polyneuropathy, unspecified ICD-10: G62. 9 ICD-9: 356.908ActiveEssential (primary) hypertensionICD-10: I10 ICD-9: 401.901/10/2018ActiveHeadacheICD-10: R51 ICD-9: 784.001ActiveType 2 diabetes mellitus without complicationsICD- 10: E11.9 ICD-9: 250.0001/10/2018ActiveChronic kidney disease, unspecifiedICD-10: N18.9 ICD-9: 585.912ResolvedAcute upper [...] adultICD-10: Z68.43 ICD-9: V85.4308ActiveHyperlipidemia, unspecifiedICD-10: E78.5 ICD-9: 272.408Active Medications Medication Codes Instructions Start Date Stop Date Status Fill Instructions ranitidine 150 mg tablet RxNorm: 739187 1 Tablet(s) PO BID 10/21/19 19 2018 Inactive This refill negates all other refills of this medication albuterol sulfate 2.5 mg/3 mL (0.083 %) solution for nebulization RxNorm: 822698 1 Vial INH QID 10/21/19 19 2018 Inactive 60/box. This refill negates all other refills of this medication. Please do not fill early. Please do not auto refill. levmetamfetamine 50 mg nasal inhaler RxNorm: 1 Unit(s) NASAL Q3-4H Do not use more than every 3 hours or 8 times/24hours 10/21/19 19 2018 Inactive Please do not auto refill. This refill negates all other refills of this medication gabapentin 300 mg capsule RxNorm: 618382 1 Capsule(s) PO TID as needed 10/21/19 19 2018 Inactive atorvastatin 20 mg tablet RxNorm: 995735 1 Tablet(s) PO QHS 10/21/192018 Inactive This refill negates all other refills of this medication trazodone 50 mg tablet RxNorm: 768260 1 Tablet(s) PO QHS 10/21/192018 Inactive This refill negates all other refills of this medication Ventolin HFA 90 mcg/actuation aerosol inhaler RxNorm: 306651 2 Puff(s) INH QID 10/21/192018 Inactive Please do not fill early. Please do not auto refill. This refill negates all other refills of this medication Calcium 600-D3 Plus 600 mg calcium-800 unit-50 mg tablet RxNorm: 1 Tablet(s) PO daily take an additonal tablet for itching. 10/21/192018 Inactive This refill negates all other refills of this medication Singulair 10 mg tablet RxNorm: 050522 1 Tablet(s) PO daily 10/21/192018 Inactive This refill negates all other refills of this medication buspirone 7.5 mg tablet RxNorm: 769861 1 Tablet(s) PO BID 10/21/192018 Inactive This refill negates all other refills of this medication diclofenac sodium 75 mg tablet,delayed release RxNorm: 864260 1 Tablet(s) PO BID 10/21/19 19 2018 Inactive This refill negates all other refills of this medication hydrochlorothiazide 12.5 mg tablet RxNorm: 872377 1 Tablet(s) PO QAM 10/21/19 19 2018 Inactive metoprolol succinate ER 50 mg tablet,extended release 24 hr RxNorm: 156484 1 Tablet(s) PO daily 10/21/19 19 2018 Inactive This refill negates all other refills of this medication levothyroxine 50 mcg tablet RxNorm: 102500 1 Tablet(s) PO daily 10/21/19 19 2018 Inactive This refill negates all other refills of this medication cetirizine 10 mg tablet RxNorm: 3279950 1 Tablet(s) PO daily 10/21/192018 Inactive This refill negates all other refills of this medication. Please do not auto refill Flintstones Complete (iron) 18 mg iron chewable tablet RxNorm: 1 Tablet(s) PO daily 10/21/192018 Inactive This refill negates all other refills of this medication buspirone 7.5 mg tablet RxNorm: 439931 1 Tablet(s) PO BID 10/12/192018 Inactive cetirizine 10 mg tablet RxNorm: 0096784 1 Tablet(s) PO daily 09/28/202018 Inactive Guaiasorb DM 10 mg-100 mg/5 mL oral liquid RxNorm: 715272 10 Milliliter(s) PO As needed every 4 hr 09/24/20 18 2018 Inactive Vicks Vaporub 4.7 %-1.2 %-2.6 % topical ointment RxNorm: 8740600 1 Application TOP TID 09/24/20 18 2018 Inactive levmetamfetamine 50 mg nasal inhaler RxNorm: 1 Unit(s) NASAL Q3-4H 09/24/20 18 2017 Inactive sertraline 50 mg tablet RxNorm: 582560 1 Tablet(s) PO daily 09/09/20 18 2018 Inactive Please note dose trazodone 50 mg tablet RxNorm: 201191 1 Tablet(s) PO QHS 09/06/20 18 2018 Inactive sertraline 50 mg tablet RxNorm: 711538 1 Tablet(s) PO daily 09/06/20 18 2017 Inactive amoxicillin 500 mg tablet RxNorm: 626266 1 Tablet(s) PO Q12H 08/31/20 18 2017 Inactive albuterol sulfate 2.5 mg/3 mL (0.083 %) solution for nebulization RxNorm: 373771 1 Vial INH QID 08/10/20 18 2018 Inactive 60/box. Please do not fill early. Please do not auto refill. Prozac 10 mg capsule RxNorm: 827741 1 Capsule(s) PO daily 08/09/20 18 2017 Inactive buspirone 7.5 mg tablet RxNorm: 108790 1 Tablet(s) PO BID 08/09/20 18 2018 Inactive gabapentin 300 mg capsule RxNorm: 697924 1 Capsule(s) PO TID as needed 08/01/20 18 2018 Inactive hydrochlorothiazide 12.5 mg tablet RxNorm: 942658 1 Tablet(s) PO QAM 08/01/20 18 2018 Inactive ranitidine 150 mg tablet RxNorm: 765143 1 Tablet(s) PO BID 08/01/20 18 2018 Inactive Macrobid 100 mg capsule RxNorm: 706153 1 Capsule(s) PO Q12H 06/21/20 18 2017 Inactive Singulair 10 mg tablet RxNorm: 285205 1 Tablet(s) PO daily 06/14/20 18 2018 Inactive Ventolin HFA 90 mcg/actuation aerosol inhaler RxNorm: 7398338 2 Puff(s) INH QID 06/14/20 18 2018 Inactive Singulair 10 mg tablet RxNorm: 144732 1 Tablet(s) PO daily 06/14/20 18 2017 Inactive buspirone 7.5 mg tablet RxNorm: 726975 1 Tablet(s) PO BID 06/14/20 18 2017 Inactive Prozac 10 mg capsule RxNorm: 443458 1 Capsule(s) PO daily 06/14/20 18 2017 Inactive Neilmed Pediatric Sinus Rinse Refill packet RxNorm: 1 Unit Dose NASAL PRN 05/31/20 18 2021 Inactive Aleve 220 mg capsule RxNorm: 6646939 1 Capsule(s) PO BID 05/31/20 18 2018 Inactive diclofenac sodium 75 mg tablet,delayed release RxNorm: 200995 1 Tablet(s) PO BID 05/31/20 18 2017 Inactive lisinopril 2.5 mg tablet RxNorm: 870296 1 Tablet(s) PO daily 05/31/20 18 2017 Inactive metoprolol succinate ER 50 mg tablet,extended release 24 hr RxNorm: 753142 1 Tablet(s) PO daily 05/31/20 18 2017 Inactive levothyroxine 50 mcg tablet RxNorm: 363257 1 Tablet(s) PO daily 05/31/20 18 2017 Inactive TRUEplus Lancets 30 gauge RxNorm: 1 Lancets Miscellaneous QAM 05/31/20 18 2017 Inactive 100/box Ventolin HFA 90 mcg/actuation aerosol inhaler RxNorm: 457222 2 Puff(s) INH QID 05/31/20 18 2017 Inactive ranitidine 150 mg tablet RxNorm: 266410 1 Tablet(s) PO BID 05/31/20 18 2017 Inactive gabapentin 300 mg capsule RxNorm: 248385 1 Capsule(s) PO TID as needed 05/31/20 18 2017 Inactive atorvastatin 20 mg tablet RxNorm: 971710 1 Tablet(s) PO QHS 05/31/20 18 2017 Inactive True Metrix Glucose Test Strip RxNorm: 1 Test Strips Miscellaneous QAM 05/31/20 18 2017 Inactive 50/container Calcium 600-D3 Plus 600 mg calcium-800 unit-50 mg tablet RxNorm: 1 Tablet(s) PO daily take an additonal tablet for itching. 05/31/20 18 2017 Inactive hydrochlorothiazide 12.5 mg tablet RxNorm: 622231 1 Tablet(s) PO QAM 05/31/20 18 2017 Inactive Flnickolas Complete (iron) 18 mg iron chewable tablet RxNorm: 1 Tablet(s) PO daily 05/31/20 18 2017 Inactive True Metrix Glucose Meter RxNorm: miscellaneous 08/17/20 19 2018 Inactive loperamide 2 mg tablet RxNorm: 270948 oral 09/29/20 19 2018 Inactive d-mannose oral powder RxNorm: PO 18 2021 Inactive Medication Administered No Medication Administered data Reason For Visit No Reason For Visit data Plan of Care Planned Activity Notes Codes Status Date Patient Education: Patient Medication Summary Rlbvguspm77/19/2019Referral: Pending Gynecology Referral InformationReferral ProcessedReferral: Pending Pulmonology Referral InformationReferralProcessed Referral: Pending Psychiatry Referral InformationReferralInitiatedReferral: Pending Respiratory Services Referral InformationReferralInitiatedReferral: Pending Ophthalmology Referral InformationReferralInitiatedReferral: [facility] WPtel: [address] [place] [address] USWriter placed a call out to the patient to notify her that it has been recommended that she be seenby 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 Patient agreed to be seen, does not have a provider of choice and no transportationissues. Assistant Production Manager faxed referral and clinical notes to [facility] in [place], [place] near the patient's home. Patient to [...] prefers a provider in the [place] or [facility]. Assistant Production Manager placed a call out to everyone listed in the area and the only location that was able to accept the patient's insurance was [facility] [address] [place] [address] and spoke with Maylin. Maylin asked that the patient's referral, face sheet and visit notes be faxed to . Assistant Production Manager faxed over requested documents. Patient appointment confirmation letter generated and mailed to her home address. Patient to call to schedule an appointment.ProcessedReferral: [facility] WPtel: [address] [facility] [address] [id number] USPatient notified that it has been advised that she be seen by Neurology. Patient agreed to be seen and prefers to be seen by a provider in the [place], [place] area. Patient denies any concerns with transportation, and prefers to schedule her own appointment. Assistant Production Manager placed a call out to [facility] and spoke with Neeraj P: who confirmed that their office is able to acceptnew patients and the patient's insurance. After confirming the providers fax number, data analyst report writer faxed over the patient's referral, [...]
--- OUTSIDE RECORDS SUMMARY | 2018-10-20 20:00 | XMS_ITS | CCD ---
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 Chronometer Assembler Name Role Phone Palomo KING, Anna Primary Care Provider Unav ailable Unavailable Chronic Care Management Unavaila ble Summary Purpose DataExchange Insurance Providers Payer name Policy type / Coverage type Covered democrat ID Effective Begin Date Effective End Date [facility] [id number] Unknown Unknown Family history Mother Diagnosis Age [...] 05/31/2018 Education level Unknown Some High School 10th05/31/20180093BwwlovcediVzanrlyJknkjwxmuw68/29/2018Tobacco historySNOMED CT: 783609079Gze never smoked or chewed uwbbeuv9505/31/2018Alcohol historySNOMED CT: 255577406Hstqm drinks pgqknpp4605/31/2018Has the patient ever used illegal drugs? UnknownHas never used illegal drugs05/31/2018DNR Order/ Advanced Directive UnknownFull Code05/31/2018 Allergies, Adverse Reactions, Alerts Substance Reaction Codes Entered Date Inactivated Date Status *No known food allergies Okebveu5209/06/2018No Inactive DateActiveMethylprednisolonehivesRxNorm: 6902 09/06/2018No Inactive DateActive Problems Condition Codes Effective Dates Condition St atus Polyneuropathy, unspecified ICD-10: G62. 9 ICD-9: 356.908ActiveEssential (primary) hypertensionICD-10: I10 ICD-9: 401.901ActiveHeadacheICD-10: R51 ICD-9: 784.001ActiveType 2 [...] Fill Instructions ranitidine 150 mg tablet RxNorm: 146386 1 Tablet(s) PO BID 10/21/19 19 2018 Inactive This refill negates all other refills of this medication albuterol sulfate 2.5 mg/3 mL (0.083 %) solution for nebulization RxNorm: 727861 1 Vial INH QID 10/21/19 19 2018 [...] this medication gabapentin 300 mg capsule RxNorm: 453667 1 Capsule(s) PO TID as needed 10/21/19 19 2018 Inactive atorvastatin 20 mg tablet RxNorm: 358967 1 Tablet(s) PO QHS 10/21/192018 Inactive This refill negates all other refills of this medication trazodone 50 mg tablet RxNorm: 291995 1 Tablet(s) PO QHS 10/21/192018 Inactive This refill negates all other refills of this medication Ventolin HFA 90 mcg/actuation aerosol inhaler RxNorm: 684647 2 Puff(s) INH QID 10/21/192018 Inactive Please do not fill early. Please do not auto refill. This refill negates all other refills of this medication Calcium 600-D3 Plus 600 mg calcium-800 unit-50 mg tablet RxNorm: 1 Tablet(s) PO daily take an additonal tablet for itching. 10/21/192018 Inactive This refill negates all other refills of this medication Singulair 10 mg tablet RxNorm: 361521 1 Tablet(s) PO daily 10/21/192018 Inactive This refill negates all other refills of this medication buspirone 7.5 mg tablet RxNorm: 253124 1 Tablet(s) PO BID 10/21/192018 Inactive This refill negates all other refills of this medication diclofenac sodium 75 mg tablet,delayed release RxNorm: 083485 1 Tablet(s) PO BID 10/21/19 19 2018 Inactive This refill negates all other refills of this medication hydrochlorothiazide 12.5 mg tablet RxNorm: 069406 1 Tablet(s) PO QAM 10/21/19 19 2018 Inactive metoprolol succinate ER 50 mg tablet,extended release 24 hr RxNorm: 503434 1 Tablet(s) PO daily 10/21/19 19 2018 Inactive This refill negates all other refills of this medication levothyroxine 50 mcg tablet RxNorm: 917997 1 Tablet(s) PO daily 10/21/192018 Inactive This refill negates all other refills of this medication cetirizine 10 mg tablet RxNorm: 9956919 1 Tablet(s) PO daily 10/21/192018 Inactive This refill negates all other refills of this medication. Please do not auto refill Flintstones Complete (iron) 18 mg iron chewable tablet RxNorm: 1 Tablet(s) PO daily 10/21/192018 Inactive This refill negates all other refills of this medication buspirone 7.5 mg tablet RxNorm: 629554 1 Tablet(s) PO BID 10/12/192018 Inactive cetirizine 10 mg tablet RxNorm: 0129433 1 Tablet(s) PO daily 09/28/20 18 2018 Inactive Guaiasorb DM 10 mg-100 mg/5 mL oral liquid RxNorm: 171115 10 Milliliter(s) PO As needed every 4 hr 09/24/202018 Inactive Vicks Vaporub 4.7 %-1.2 %-2.6 % topical ointment RxNorm: 9710120 1 Application TOP TID 09/24/20 18 2018 Inactive levmetamfetamine 50 mg nasal inhaler RxNorm: 1 Unit(s) NASAL Q3-4H 09/24/20 18 2017 Inactive sertraline 50 mg tablet RxNorm: 349684 1 Tablet(s) PO daily 09/09/20 18 2018 Inactive Please note dose trazodone 50 mg tablet RxNorm: 318687 1 Tablet(s) PO QHS 09/06/20 18 2018 Inactive sertraline 50 mg tablet RxNorm: 146995 1 Tablet(s) PO daily 09/06/20 18 2017 Inactive amoxicillin 500 mg tablet RxNorm: 700360 1 Tablet(s) PO Q12H 08/31/20 18 2017 Inactive albuterol sulfate 2.5 mg/3 mL (0.083 %) solution for nebulization RxNorm: 088335 1 Vial INH QID 08/10/20 18 2018 Inactive 60/box. Please do not fill early. Please do not auto refill. Prozac 10 mg capsule RxNorm: 425428 1 Capsule(s) PO daily 08/09/20 18 2017 Inactive buspirone 7.5 mg tablet RxNorm: 541971 1 Tablet(s) PO BID 08/09/20 18 2018 Inactive gabapentin 300 mg capsule RxNorm: 730557 1 Capsule(s) PO TID as needed 08/01/20 18 2018 Inactive hydrochlorothiazide 12.5 mg tablet RxNorm: 101703 1 Tablet(s) PO QAM 08/01/20 18 2018 Inactive ranitidine 150 mg tablet RxNorm: 709721 1 Tablet(s) PO BID 08/01/20 18 2018 Inactive Macrobid 100 mg capsule RxNorm: 578069 1 Capsule(s) PO Q12H 06/21/20 18 2017 Inactive Singulair 10 mg tablet RxNorm: 811714 1 Tablet(s) PO daily 06/14/20 18 2018 Inactive Ventolin HFA 90 mcg/actuation aerosol inhaler RxNorm: 0481844 2 Puff(s) INH QID 06/14/20 18 2018 Inactive Singulair 10 mg tablet RxNorm: 166160 1 Tablet(s) PO daily 06/14/20 18 2017 Inactive buspirone 7.5 mg tablet RxNorm: 877007 1 Tablet(s) PO BID 06/14/20 18 2017 Inactive Prozac 10 mg capsule RxNorm: 409073 1 Capsule(s) PO daily 06/14/20 18 2017 Inactive NeGuideSparkmed Pediatric Sinus Rinse Refill packet RxNorm: 1 Unit Dose NASAL PRN 05/31/20 18 2021 Inactive Aleve 220 mg capsule RxNorm: 5721486 1 Capsule(s) PO BID 05/31/20 18 2018 Inactive diclofenac sodium 75 mg tablet,delayed release RxNorm: 263112 1 Tablet(s) PO BID 05/31/20 18 2017 Inactive lisinopril 2.5 mg tablet RxNorm: 581727 1 Tablet(s) PO daily 05/31/20 18 2017 Inactive metoprolol succinate ER 50 mg tablet,extended release 24 hr RxNorm: 954172 1 Tablet(s) PO daily 05/31/20 18 2017 Inactive levothyroxine 50 mcg tablet RxNorm: 765614 1 Tablet(s) PO daily 05/31/20 18 2017 Inactive TRUEplus Lancets 30 gauge RxNorm: 1 Lancets Miscellaneous QAM 05/31/20 18 2017 Inactive 100/box Ventolin HFA 90 mcg/actuation aerosol inhaler RxNorm: 282228 2 Puff(s) INH QID 05/31/20 18 2017 Inactive ranitidine 150 mg tablet RxNorm: 697520 1 Tablet(s) PO BID 05/31/20 18 2017 Inactive gabapentin 300 mg capsule RxNorm: 709619 1 Capsule(s) PO TID as needed 05/31/20 18 2017 Inactive atorvastatin 20 mg tablet RxNorm: 525806 1 Tablet(s) PO QHS 05/31/20 18 2017 Inactive True Metrix Glucose Test Strip RxNorm: 1 Test Strips Miscellaneous QAM 05/31/20 18 2017 Inactive 50/container Calcium 600-D3 Plus 600 mg calcium-800 unit-50 mg tablet RxNorm: 1 Tablet(s) PO daily take an additonal tablet for itching. 05/31/20 18 2017 Inactive hydrochlorothiazide 12.5 mg tablet RxNorm: 209789 1 Tablet(s) PO QAM 05/31/20 18 2017 Inactive Flintstones Complete (iron) 18 mg iron chewable tablet RxNorm: 1 Tablet(s) PO daily 05/31/20 18 2017 Inactive True Metrix Glucose Meter RxNorm: miscellaneous 08/17/20 19 2018 Inactive loperamide 2 mg tablet RxNorm: 089514 oral 09/29/20 19 2018 Inactive d-mannose oral powder RxNorm: PO 18 2021 Inactive Medication Administered No Medication Administered data Reason For Visit No Reason For Visit data Plan of Care Planned Activity Notes Codes Status Date Referral: Pending Gynecology Referral Informatio n Referral ProcessedReferral: Pending Pulmonology Referral InformationReferralProcessed Referral: Pending Psychiatry Referral InformationReferralInitiatedReferral: Pending Respiratory Services Referral InformationReferralInitiatedReferral: Pending Ophthalmology Referral InformationReferralInitiatedReferral: [facility] WPtel: [address] [place] [address] [address] [address] USWriter placed a call out to the patient to notify her that it has been recommended that she be seenby 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 Patient agreed to be seen, does not have a provider of choice and no transportationissues. Briquetting Machine Operator faxed referral and clinical notes to [facility] in [place], [place] near the patient's home. Patient to [...] seen and prefers a provider in the [place] or [facility]. Briquetting Machine Operator placed a call out to everyone listed in the area and the only location that was able to accept the patient's insurance was [place] [address] [place] [address] and spoke with Maylin. Maylin asked that the patient's referral, face sheet and visit notes be faxed to . Briquetting Machine Operator faxed over requested documents. Patient appointment confirmation letter generated and mailed to her home address. Patient to call to schedule an appointment.ProcessedReferral: [facility] WPtel: [id number] USPatient notified that it has been advised that she be seen by Neurology. Patient agreed to be seen and prefers to be seen by a provider in the [place], [place] area. Patient denies any concerns with transportation, and prefers to schedule her own appointment. Briquetting Machine Operator placed a call out to [facility] and spoke with Neeraj P: who confirmed that their office is able to acceptnew patients and the patient's insurance. After confirming the providers fax number, software writer faxed over the patient's referral, and [...]
--- OUTSIDE RECORDS SUMMARY | 2018-12-02 20:00 | XMS_ITS | CCD ---
Author Name Ursula Palafox NP y Address [address] [place] [address] Phone Organization [facility] Phone Care Team Providers Care Insulation Estimator Name Role Phone Palomo KING, Anna Primary Care Provider Unav ailable Unavailable Chronic Care Management Unavaila ble Summary Purpose DataExchange Insurance Providers Payer name Policy type / Coverage type Covered alliance party ID Effective Begin Date Effective End Date [employer] [facility] [id number] Unknown Unknown Family history Mother Diagnosis Age [...] 05/31/2018 Education level Unknown Some High School 10th05/31/20186671CkhicdwtugFfwuibiOckoyzxujr51/29/2018Tobacco historySNOMED CT: 691237269Tuf never smoked or chewed bsrltkb8505/31/2018Alcohol historySNOMED CT: 379255658Lewlb drinks cprpvwo9005/31/2018Has the patient ever used illegal drugs? UnknownHas never used illegal drugs05/31/2018DNR Order/ Advanced Directive UnknownFull Code05/31/2018 Allergies, Adverse Reactions, Alerts Substance Reaction Codes Entered Date Inactivated Date Status *No known food allergies Ibqvwce2109/06/2018No Inactive DateActiveMethylprednisolonehivesRxNorm: 6902 09/06/2018No Inactive DateActive Problems Condition Codes Effective Dates Condition St atus Abnormal electrocardiogram [ECG] [EKG] I CD-10: R94.31 ICD-9: 794.3108ActiveAdjustment disorder with mixed anxiety and depressed moodICD-10: F43.23 ICD-9: 309.2812ActiveChest pain, unspecifiedICD-10: R07.9 ICD-9: 786.5002ActiveEdema, unspecifiedICD-10: R60.9 ICD-9: 782.310ActiveEssential (primary) hypertensionICD-10: I10 ICD-9: 401.901ActiveHeadacheICD-10: R51 ICD-9: 784.001ActivePost-traumatic stress disorder, unspecifiedICD-10: F43.10 ICD-9: 309.8112ActiveType 2 diabetes mellitus without complicationsICD- 10: E11.9 ICD-9: 250.0001ActiveUnspecified asthma, uncomplicatedICD-10: J45.909 ICD-9: 493.9011ActiveWheezingICD-10: R06.2 ICD-9: 786.0711ActiveAcute upper respiratory infection, unspecifiedICD- 10: J06.9 ICD-9: 465.912ResolvedChronic kidney disease, unspecifiedICD-10: N18.9 ICD-9: 585.9010/03/2018ResolvedPolyneuropathy, unspecifiedICD-10: G62.9 ICD-9: 356.908ActiveEncounter for screening, unspecifiedICD-10: Z13.9 ICD-9: V82.912ActiveHypothyroidism, unspecifiedICD-10: E03.9 ICD-9: 244.912ActiveLong term (current) use of non-steroidal anti- inflammatories (NSAID)ICD-10: Z79.1 ICD-9: V58.6409ActiveBody mass index (BMI) 50-59.9 , adultICD-10: Z68.43 ICD-9: V85.4308ActiveHyperlipidemia, unspecifiedICD-10: E78.5 ICD-9: 272.408Active Medications Medication Codes Instructions Start Date Stop Date Status Fill Instructions ranitidine 150 mg tablet RxNorm: 797158 1 Tablet(s) PO BID 10/21/192018 Inactive This refill negates all other refills of this medication albuterol sulfate 2.5 mg/3 mL (0.083 %) solution for nebulization RxNorm: 955234 1 Vial INH QID 10/21/192018 Inactive 60/box. [...] this medication gabapentin 300 mg capsule RxNorm: 029600 1 Capsule(s) PO TID as needed 10/21/192018 Inactive atorvastatin 20 mg tablet RxNorm: 106388 1 Tablet(s) PO QHS 10/21/192018 Inactive This refill negates all other refills of this medication Ventolin HFA 90 mcg/actuation aerosol inhaler RxNorm: 742490 2 Puff(s) INH QID 10/21/192018 Inactive Please do not fill early. Please do not auto refill. This refill negates all other refills of this medication Calcium 600-D3 Plus 600 mg calcium-800 unit-50 mg tablet RxNorm: 1 Tablet(s) PO daily take an additonal tablet for itching. 10/21/192018 Inactive This refill negates all other refills of this medication Singulair 10 mg tablet RxNorm: 497265 1 Tablet(s) PO daily 10/21/192018 Inactive This refill negates all other refills of this medication buspirone 7.5 mg tablet RxNorm: 200749 1 Tablet(s) PO BID 10/21/192018 Inactive This refill negates all other refills of this medication diclofenac sodium 75 mg tablet,delayed release RxNorm: 958949 1 Tablet(s) PO BID 10/21/19 19 2018 Inactive This refill negates all other refills of this medication hydrochlorothiazide 12.5 mg tablet RxNorm: 899822 1 Tablet(s) PO QAM 10/21/19 19 2018 Inactive metoprolol succinate ER 50 mg tablet,extended release 24 hr RxNorm: 422131 1 Tablet(s) PO daily 10/21/19 19 2018 Inactive This refill negates all other refills of this medication levothyroxine 50 mcg tablet RxNorm: 431605 1 Tablet(s) PO daily 10/21/19 19 2018 Inactive This refill negates all other refills of this medication cetirizine 10 mg tablet RxNorm: 1376406 1 Tablet(s) PO daily 10/21/19 19 2018 Inactive This refill negates all other refills of this medication. Please do not auto refill Flintstones Complete (iron) 18 mg iron chewable tablet RxNorm: 1 Tablet(s) PO daily 10/21/19 19 2018 Inactive This refill negates all other refills of this medication trazodone 50 mg tablet RxNorm: 224945 1 Tablet(s) PO QHS 10/21/19 19 2018 Inactive This refill negates all other refills of this medication buspirone 7.5 mg tablet RxNorm: 800194 1 Tablet(s) PO BID 10/12/192018 Inactive cetirizine 10 mg tablet RxNorm: 0341993 1 Tablet(s) PO daily 09/28/202018 Inactive Guaiasorb DM 10 mg-100 mg/5 mL oral liquid RxNorm: 623286 10 Milliliter(s) PO As needed every 4 hr 09/24/202018 Inactive Vicks Vaporub 4.7 %-1.2 %-2.6 % topical ointment RxNorm: 7750121 1 Application TOP TID 09/24/20 18 2018 Inactive levmetamfetamine 50 mg nasal inhaler RxNorm: 1 Unit(s) NASAL Q3-4H 09/24/20 18 2017 Inactive sertraline 50 mg tablet RxNorm: 781438 1 Tablet(s) PO daily 09/09/20 18 2018 Inactive Please note dose trazodone 50 mg tablet RxNorm: 732951 1 Tablet(s) PO QHS 09/06/20 18 2018 Inactive sertraline 50 mg tablet RxNorm: 157751 1 Tablet(s) PO daily 09/06/20 18 2017 Inactive amoxicillin 500 mg tablet RxNorm: 191503 1 Tablet(s) PO Q12H 08/31/20 18 2017 Inactive albuterol sulfate 2.5 mg/3 mL (0.083 %) solution for nebulization RxNorm: 454582 1 Vial INH QID 08/10/20 18 2018 Inactive 60/box. Please do not fill early. Please do not auto refill. Prozac 10 mg capsule RxNorm: 946165 1 Capsule(s) PO daily 08/09/20 18 2017 Inactive buspirone 7.5 mg tablet RxNorm: 430639 1 Tablet(s) PO BID 08/09/20 18 2018 Inactive gabapentin 300 mg capsule RxNorm: 750367 1 Capsule(s) PO TID as needed 08/01/20 18 2018 Inactive hydrochlorothiazide 12.5 mg tablet RxNorm: 324233 1 Tablet(s) PO QAM 08/01/20 18 2018 Inactive ranitidine 150 mg tablet RxNorm: 488038 1 Tablet(s) PO BID 08/01/20 18 2018 Inactive Macrobid 100 mg capsule RxNorm: 632015 1 Capsule(s) PO Q12H 06/21/20 18 2017 Inactive Singulair 10 mg tablet RxNorm: 358530 1 Tablet(s) PO daily 06/14/20 18 2018 Inactive Ventolin HFA 90 mcg/actuation aerosol inhaler RxNorm: 4507535 2 Puff(s) INH QID 06/14/20 18 2018 Inactive Singulair 10 mg tablet RxNorm: 511626 1 Tablet(s) PO daily 06/14/20 18 2017 Inactive buspirone 7.5 mg tablet RxNorm: 842943 1 Tablet(s) PO BID 06/14/20 18 2017 Inactive Prozac 10 mg capsule RxNorm: 905211 1 Capsule(s) PO daily 06/14/20 18 2017 Inactive Neilmed Pediatric Sinus Rinse Refill packet RxNorm: 1 Unit Dose NASAL PRN 05/31/20 18 2021 Inactive Aleve 220 mg capsule RxNorm: 5602018 1 Capsule(s) PO BID 05/31/20 18 2018 Inactive diclofenac sodium 75 mg tablet,delayed release RxNorm: 948331 1 Tablet(s) PO BID 05/31/20 18 2017 Inactive lisinopril 2.5 mg tablet RxNorm: 538679 1 Tablet(s) PO daily 05/31/20 18 2017 Inactive metoprolol succinate ER 50 mg tablet,extended release 24 hr RxNorm: 975242 1 Tablet(s) PO daily 05/31/20 18 2017 Inactive levothyroxine 50 mcg tablet RxNorm: 101794 1 Tablet(s) PO daily 05/31/20 18 2017 Inactive TRUEplus Lancets 30 gauge RxNorm: 1 Lancets Miscellaneous QAM 05/31/20 18 2017 Inactive 100/box Ventolin HFA 90 mcg/actuation aerosol inhaler RxNorm: 086635 2 Puff(s) INH QID 05/31/20 18 2017 Inactive ranitidine 150 mg tablet RxNorm: 604632 1 Tablet(s) PO BID 05/31/20 18 2017 Inactive gabapentin 300 mg capsule RxNorm: 704260 1 Capsule(s) PO TID as needed 05/31/20 18 2017 Inactive atorvastatin 20 mg tablet RxNorm: 587839 1 Tablet(s) PO QHS 05/31/20 18 2017 Inactive True Metrix Glucose Test Strip RxNorm: 1 Test Strips Miscellaneous QAM 05/31/20 18 2017 Inactive 50/container Calcium 600-D3 Plus 600 mg calcium-800 unit-50 mg tablet RxNorm: 1 Tablet(s) PO daily take an additonal tablet for itching. 05/31/20 18 2017 Inactive hydrochlorothiazide 12.5 mg tablet RxNorm: 234119 1 Tablet(s) PO QAM 05/31/20 18 2017 Inactive Flintstones Complete (iron) 18 mg iron chewable tablet RxNorm: 1 Tablet(s) PO daily 05/31/20 18 2017 Inactive True Metrix Glucose Meter RxNorm: miscellaneous 08/17/20 19 2018 Inactive loperamide 2 mg tablet RxNorm: 656844 oral 09/29/20 19 2018 Inactive d-mannose oral powder RxNorm: PO 18 2021 Inactive Medication Administered No Medication Administered data Vital Signs Date Vital 11/29/2018 Blood Pressure 1: 128/80 Code: 8480-6 BMI: 52.5 Code: 11802-7 Heart Rate 1: 55 bpm Height: 4'11 Code: 8302-2 Respiratory Rate: 18 bpm SpO2: 97% Temperature: 36.4 (C) / 97.5 (F) Weight: 260 lbs Code: 39241-1 Reason For Visit Reason For Visit Effective [...] mood[ICD10: F43.23] Diagnosis: Post-traumatic stress disorder, unspecified[ICD10: F43.10][place] [address] CPT-4: 9307988 Plan of Care Planned Activity Notes Codes [...] to evaluate the effectiveness of current POC &modify PRN. R07.9-786.50 Chest pain, unspecified R94.31-794.31 Abnormal electrocardiogram [ECG] [EKG] - Sinus Rhythm - T-abnormality - Possible Anterior ischemia pattern. ABNORMAL POC: Will refer to cardiology when the pt moves into [place] and has transportation F43.23-309.28 Adjustment disorder with [...] probably get [facility] 6-8 yrs in [facility]. I'm going to stand right beside him no matter what 11/29/18: just [id number] from [place] daiys in [facility], released early from a 60 day sentence. buspirone 7.5 mg tablet 1 Tablet(s) PO BID 30 days Refills: 1 Qty: 60 [06/14/2018 - 08/12/2018] : will evaluate for increase at next visit Prozac 10 mg capsule 1 Capsule(s) PO daily 30 days Refills: 1 Qty: 30 [06/14/2018 - 08/12/2018] [facility] BAUDILIO Dowling Seeing counselor at [facility] also R51-784.0 Headache 09/21/18: ambulance admission to [facility]. pt stated she had been out [...] kidney disease, unspecified 09/06/18: GFR- 104, Cr- 0.7,BUN- 8, K- 4.0, Mg & Phos- WNL 05/31/18: GFR-92, Cr- 0.7, BUN-18, K- 4.0 POC: will move this Dx to resolved 11/29/2018Patient Education: Patient Medication UuwgaynXyzxbdpzi97/27/2019 Patient Education: TyhgvqxdyajwUmxmtespa19/27/2019Patient Education: Headaches Tnncedsoj59/27/2019Patient Education: DfitashkSsrqqkery09/27/2019Referral: Pending Gynecology Referral InformationReferralProcessedReferral: Pending Pulmonology Referral InformationReferralProcessedReferral: Pending Psychiatry Referral InformationReferralInitiatedReferral: Pending Respiratory Services Referral InformationReferralInitiatedReferral: Pending Ophthalmology Referral InformationReferralInitiatedReferral: [facility] WPtel: [address] [id number] USWriter placed a call out to the patient to notify her that it has been recommended that she be seenby 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 Patient agreed to be seen, does not have a provider of choice and no transportationissues. Firestop/Containment Worker faxed referral and clinical notes to [facility] in [place], [place] near the patient's home. Patient [...] seen and prefers a provider in the [place] or [place] area. Firestop/Containment Worker placed a call out to everyone listed in the area and the only location that was able to accept the patient's insurance was [address] [address] and spoke with Maylin. Maylin asked that the patient's referral, face sheet and visit notes be faxed to . Firestop/Containment Worker faxed over requested documents. Patient appointment confirmation letter generated and mailed to her home address. Patient to call to schedule an appointment.ProcessedReferral: [facility] WPtel: [address] [facility] [address] [place], [place] [id number] USPatient notified that it has been advised that she be seen by Neurology. Patient agreed to be seen and prefers to be seen by a provider in the [place], [place] area. Patient denies any concerns with transportation, and prefers to schedule her own appointment. Firestop/Containment Worker placed a call out to [facility] and spoke with Neeraj P: who confirmed that their office is able to acceptnew patients and the patient's insurance. After confirming the providers fax number, commercial lines underwriter faxed over the patient's referral, and most recent clinical notes to F: . Patient to call to schedule her appointment. Appointment confirmation letter mailed to the patient's home address. CCDA completed.ProcessedReferral: Pending Nephrology Referral InformationReferralProcessedReferral: Pending Podiatry Referral Information ReferralInitiatedReferral: Pending Podiatry Referral InformationReferral ProcessedReferral: Pending Podiatry Referral InformationReferralInitiated Instructions Comment Date . E11.9250.00 Type 2 diabet es mellitus without complications [...] to cardiology when the pt moves into [place] and has transportation F43.23-309.28 Adjustment disorder with [...] probably get [facility] to 6-8 yrs in [facility]. I'm going to stand right beside him no matter what 11/29/18: just [id number] from 30[place] daiys in halfway, released early from a 60 day sentence. buspirone 7.5 mg tablet; 1 Tablet(s) PO BID; 30 days; Refills: 1; Qty: 60 [06/14/2018 - 08/12/2018];: will evaluate for increase at next visit Prozac 10 mg capsule; 1 Capsule(s) PO daily; 30 days; Refills: 1; Qty: 30 [06/14/2018 - 08/12/2018] POC: being managed by [facility] BAUDILIO Dowling Seeing counselor at [facility] also R51-784.0 Headache 09/21/18: ambulance admission to [facility]. pt stated she had been out [...]
--- OUTSIDE RECORDS SUMMARY | 2018-12-29 20:00 | XMS_ITS | CCD ---
Author Name Ursula Palafox NP y Address [address] [place] [address] Phone Organization [facility] Phone Care Team Providers Care Chicken Picker Name Role Phone Palomo KING, Anna Primary Care Provider Unav ailable Unavailable Chronic Care Management Unavaila ble Summary Purpose DataExchange Insurance Providers Payer name Policy type / Coverage type Covered green party ID Effective Begin Date Effective End Date [employer] [id number] Unknown Unknown Family history Mother Diagnosis Age [...] 05/31/2018 Education level Unknown Some High School 10th05/31/20180946TuqvjcbyptNfrzhynEjxrqadzvl27/29/2018Tobacco historySNOMED CT: 192125864Cxu never smoked or chewed grcvyfk9905/31/2018Alcohol historySNOMED CT: 960270439Kijqu drinks zpfhzsj3305/31/2018Has the patient ever used illegal drugs? UnknownHas never used illegal drugs05/31/2018DNR Order/ Advanced Directive UnknownFull Code05/31/2018 Allergies, Adverse Reactions, Alerts Substance Reaction Codes Entered Date Inactivated Date Status *No known food allergies Ffdxqft4509/06/2018No Inactive DateActiveMethylprednisolonehivesRxNorm: 6902 09/06/2018No Inactive DateActive Problems Condition Codes Effective Dates Condition St atus Abnormal electrocardiogram [ECG] [EKG] I CD-10: R94.31 ICD-9: 794.3108ActiveEdema, unspecifiedICD-10: R60.9 ICD-9: 782.310ActiveEssential (primary) hypertensionICD-10: I10 ICD-9: 401.901ActiveHypothyroidism, unspecifiedICD-10: E03.9 ICD-9: 244.912ActiveType 2 diabetes mellitus without complicationsICD- 10: E11.9 ICD-9: 250.0001ActiveUnspecified asthma, uncomplicatedICD-10: J45.909 ICD-9: 493.9011ActiveAdjustment disorder with mixed anxiety and depressed moodICD-10: F43.23 ICD-9: 309.2812ActiveChest pain, unspecifiedICD-10: R07.9 ICD-9: 786.5002ActiveHeadacheICD-10: R51 ICD-9: 784.001ActivePost-traumatic stress disorder, unspecifiedICD-10: F43.10 ICD-9: 309.8112ActiveWheezingICD-10: R06.2 ICD-9: 786.0711ActiveAcute upper respiratory infection, unspecifiedICD- 10: J06.9 ICD-9: 465.9111/24/2017ResolvedChronic kidney disease, unspecifiedICD-10: N18.9 ICD-9: 585.9010/03/2018ResolvedPolyneuropathy, unspecifiedICD-10: G62.9 ICD-9: 356.908ActiveEncounter for screening, unspecifiedICD-10: Z13.9 ICD-9: V82.912ActiveLong term (current) use of non-steroidal anti- inflammatories (NSAID)ICD-10: Z79.1 ICD-9: V58.6409ActiveBody mass index (BMI) 50-59.9 , adultICD-10: Z68.43 ICD-9: V85.4308ActiveHyperlipidemia, unspecifiedICD-10: E78.5 ICD-9: 272.408Active Medications Medication Codes Instructions Start Date Stop Date Status Fill Instructions lisinopril 2.5 mg tablet RxNorm: 648088 1 Tablet(s) PO daily 12/28/192018 Inactive ranitidine 150 mg tablet RxNorm: 158692 1 Tablet(s) PO BID 10/21/19 19 2018 Inactive This refill negates all other refills of this medication albuterol sulfate 2.5 mg/3 mL (0.083 %) solution for nebulization RxNorm: 551716 1 Vial INH QID 10/21/192018 Inactive 60/box. [...] this medication atorvastatin 20 mg tablet RxNorm: 550299 1 Tablet(s) PO QHS 10/21/192018 Inactive This refill negates all other refills of this medication Ventolin HFA 90 mcg/actuation aerosol inhaler RxNorm: 111683 2 Puff(s) INH QID 10/21/192018 Inactive Please do not fill early. Please do not auto refill. This refill negates all other refills of this medication Calcium 600-D3 Plus 600 mg calcium-800 unit-50 mg tablet RxNorm: 1 Tablet(s) PO daily take an additonal tablet for itching. 10/21/192018 Inactive This refill negates all other refills of this medication Singulair 10 mg tablet RxNorm: 007926 1 Tablet(s) PO daily 10/21/192018 Inactive This refill negates all other refills of this medication buspirone 7.5 mg tablet RxNorm: 210659 1 Tablet(s) PO BID 10/21/192018 Inactive This refill negates all other refills of this medication diclofenac sodium 75 mg tablet,delayed release RxNorm: 626245 1 Tablet(s) PO BID 10/21/19 19 2018 Inactive This refill negates all other refills of this medication hydrochlorothiazide 12.5 mg tablet RxNorm: 348438 1 Tablet(s) PO QAM 10/21/19 19 2018 Inactive levothyroxine 50 mcg tablet RxNorm: 882319 1 Tablet(s) PO daily 10/21/19 19 2018 Inactive This refill negates all other refills of this medication cetirizine 10 mg tablet RxNorm: 3919921 1 Tablet(s) PO daily 10/21/19 19 2018 Inactive This refill negates all other refills of this medication. Please do not auto refill Flintstones Complete (iron) 18 mg iron chewable tablet RxNorm: 1 Tablet(s) PO daily 10/21/19 19 2018 Inactive This refill negates all other refills of this medication gabapentin 300 mg capsule RxNorm: 668449 1 Capsule(s) PO TID as needed 10/21/19 19 2018 Inactive trazodone 50 mg tablet RxNorm: 210971 1 Tablet(s) PO QHS 10/21/19 19 2018 Inactive This refill negates all other refills of this medication metoprolol succinate ER 50 mg tablet,extended release 24 hr RxNorm: 234533 1 Tablet(s) PO daily 10/21/19 19 2018 Inactive This refill negates all other refills of this medication buspirone 7.5 mg tablet RxNorm: 768851 1 Tablet(s) PO BID 10/12/19 19 2018 Inactive cetirizine 10 mg tablet RxNorm: 3598717 1 Tablet(s) PO daily 09/28/202018 Inactive Guaiasorb DM 10 mg-100 mg/5 mL oral liquid RxNorm: 254943 10 Milliliter(s) PO As needed every 4 hr 09/24/20 18 2018 Inactive Vicks Vaporub 4.7 %-1.2 %-2.6 % topical ointment RxNorm: 8295539 1 Application TOP TID 09/24/20 18 2018 Inactive levmetamfetamine 50 mg nasal inhaler RxNorm: 1 Unit(s) NASAL Q3-4H 09/24/20 18 2017 Inactive sertraline 50 mg tablet RxNorm: 217768 1 Tablet(s) PO daily 09/09/20 18 2018 Inactive Please note dose trazodone 50 mg tablet RxNorm: 239758 1 Tablet(s) PO QHS 09/06/20 18 2018 Inactive sertraline 50 mg tablet RxNorm: 157950 1 Tablet(s) PO daily 09/06/20 18 2017 Inactive amoxicillin 500 mg tablet RxNorm: 670448 1 Tablet(s) PO Q12H 08/31/20 18 2017 Inactive albuterol sulfate 2.5 mg/3 mL (0.083 %) solution for nebulization RxNorm: 460797 1 Vial INH QID 08/10/20 18 2018 Inactive 60/box. Please do not fill early. Please do not auto refill. Prozac 10 mg capsule RxNorm: 265942 1 Capsule(s) PO daily 08/09/20 18 2017 Inactive buspirone 7.5 mg tablet RxNorm: 305647 1 Tablet(s) PO BID 08/09/20 18 2018 Inactive gabapentin 300 mg capsule RxNorm: 566021 1 Capsule(s) PO TID as needed 08/01/20 18 2018 Inactive hydrochlorothiazide 12.5 mg tablet RxNorm: 961131 1 Tablet(s) PO QAM 08/01/20 18 2018 Inactive ranitidine 150 mg tablet RxNorm: 803224 1 Tablet(s) PO BID 08/01/20 18 2018 Inactive Macrobid 100 mg capsule RxNorm: 440748 1 Capsule(s) PO Q12H 06/21/20 18 2017 Inactive Singulair 10 mg tablet RxNorm: 210329 1 Tablet(s) PO daily 06/14/20 18 2018 Inactive Ventolin HFA 90 mcg/actuation aerosol inhaler RxNorm: 9265338 2 Puff(s) INH QID 06/14/20 18 2018 Inactive Singulair 10 mg tablet RxNorm: 738355 1 Tablet(s) PO daily 06/14/20 18 2017 Inactive buspirone 7.5 mg tablet RxNorm: 161554 1 Tablet(s) PO BID 06/14/20 18 2017 Inactive Prozac 10 mg capsule RxNorm: 253240 1 Capsule(s) PO daily 06/14/20 18 2017 Inactive Neilmed Pediatric Sinus Rinse Refill packet RxNorm: 1 Unit Dose NASAL PRN 05/31/20 18 2021 Inactive diclofenac sodium 75 mg tablet,delayed release RxNorm: 494715 1 Tablet(s) PO BID 05/31/20 18 2017 Inactive lisinopril 2.5 mg tablet RxNorm: 274479 1 Tablet(s) PO daily 05/31/20 18 2017 Inactive metoprolol succinate ER 50 mg tablet,extended release 24 hr RxNorm: 574167 1 Tablet(s) PO daily 05/31/20 18 2017 Inactive levothyroxine 50 mcg tablet RxNorm: 342562 1 Tablet(s) PO daily 05/31/20 18 2017 Inactive TRUEplus Lancets 30 gauge RxNorm: 1 Lancets Miscellaneous QAM 05/31/20 18 2017 Inactive 100/box Ventolin HFA 90 mcg/actuation aerosol inhaler RxNorm: 948782 2 Puff(s) INH QID 05/31/20 18 2017 Inactive Aleve 220 mg capsule RxNorm: 0752652 1 Capsule(s) PO BID 05/31/20 18 2018 Inactive ranitidine 150 mg tablet RxNorm: 271390 1 Tablet(s) PO BID 05/31/20 18 2017 Inactive gabapentin 300 mg capsule RxNorm: 879914 1 Capsule(s) PO TID as needed 05/31/20 18 2017 Inactive atorvastatin 20 mg tablet RxNorm: 134374 1 Tablet(s) PO QHS 05/31/20 18 2017 Inactive True Metrix Glucose Test Strip RxNorm: 1 Test Strips Miscellaneous QAM 05/31/20 18 2017 Inactive 50/container Calcium 600-D3 Plus 600 mg calcium-800 unit-50 mg tablet RxNorm: 1 Tablet(s) PO daily take an additonal tablet for itching. 05/31/20 18 2017 Inactive hydrochlorothiazide 12.5 mg tablet RxNorm: 001009 1 Tablet(s) PO QAM 05/31/20 18 2017 Inactive Flintstones Complete (iron) 18 mg iron chewable tablet RxNorm: 1 Tablet(s) PO daily 05/31/20 18 2017 Inactive True Metrix Glucose Meter RxNorm: miscellaneous 08/17/20 19 2018 Inactive sertraline 50 mg tablet RxNorm: 009315 1 Tablet(s) PO daily 11/28/19 20 2019 Inactive loperamide 2 mg tablet RxNorm: 813480 oral 09/29/20 19 2018 Inactive d-mannose oral powder RxNorm: PO 18 2021 Inactive Medication Administered No Medication Administered data Results Observation Observation Code Item Item Code Result Date S ervice Location CHEM 14 (METABOLIC PANEL) 04040 Glucose 2345-7 91 mg/dL 12/29/2018 [facility] [address], [place] [address]ITFL 14 (METABOLIC PANEL)27251MSO8853-810 mg/dL12/29/2018 [facility] [address], [place] [address]WKMA 14 (METABOLIC PANEL)52931Rjuqxmimml8249-93.8 mg/dL12/29/2018 [facility] [address], [place] [address]PTBD 14 (METABOLIC PANEL)09040HFS/Creat Lacze2985-482.6012/29/2018 [facility] [address], [place] [address]CBLT 14 (METABOLIC PANEL)43120LMO Opcrrnubr92414-651 mL/min/1.73m2 12/29/2018 [facility] [address], [place] [address]JSFE 14 (METABOLIC PANEL)90323VPS Estimated for Americans [address] mL/min/1.19e73212/29/2018 [facility] [address], [place] [address]USKB 14 (METABOLIC PANEL)64410Aqzfzd2317-6682 mmol/L12/29/2018 [facility] [address], [place] [address]ETOX 14 (METABOLIC PANEL)88608Rexfzanfb9272-95.9 mmol/L12/29/2018 [facility] [address], [place] [address]BKIY 14 (METABOLIC PANEL)10673Niopxoab9354-0185 mmol/L12/29/2018 [facility] [address], [place] [address]WZDB 14 (METABOLIC PANEL)19667Vtnjf ST28308-119 mmol/L12/29/2018 [facility] [address], [place] [address]IUQY 14 (METABOLIC PANEL)13680Fddea Vpx1033-281.9 mEq/L12/29/2018 [facility] [address] [place] [address]TIBZ 14 (METABOLIC PANEL)97054Wpllafpmml Serum Yduofqhffd63296-0771 mOsm/kg12/29/2018 [facility] [address] [place] [address]YWNG 14 (METABOLIC PANEL)13710Aceevbd05181-21.6 g/dL12/29/2018 [facility] [address] [place] [address]WBAZ 14 (METABOLIC PANEL)24923Hwzll Xatvmil3264-78.1 g/dL12/29/2018 [facility] [address] [place] [address]MXSS 14 (METABOLIC PANEL)18054Rjawaera1304-00.5 g/dL12/29/2018 [facility] [address] [place] [address]UVSZ 14 (METABOLIC PANEL)53565Qygvkvy/Globulin Brdhe2889-46.0 12/29/2018 [facility] [address] [place] [address]YBAD 14 (METABOLIC PANEL)16996QXK RJNX6843-828.00 U/L12/29/2018 [facility] [address], [place] [address]XAIP 14 (METABOLIC PANEL)424[address]SXMS/HUN3907-098 U/L12/29/2018 [facility] [address], [place] [address]BXPG 14 (METABOLIC PANEL)36907HHKM/WCK4124-195 U/L12/29/2018 [facility] [address], [place] [address]ILVO 14 (METABOLIC PANEL)41828Ayflz Lwbphxvgh0037-87.4 mg/dL 12/29/2018 [facility] [address], [place] [address]BJQZ 14 (METABOLIC PANEL)45743Repqdlx26947-19.9 mg/dL12/29/2018 [facility] [address] [facility] [place] [address]PXGV 14 (METABOLIC PANEL)42072Ojmrbxvzq Ccdakvy51040-76.4 mg/dL 12/29/2018 [facility] [address], [place] [address]WUCV U-809589RL21387-76.19 ng/dL12/29/2018 [facility] [address], [place] [address]UGUD URAP45867Gpby Qytn5684-05.4 mg/dL12/29/2018 [facility] [address], [place] [address]W5D-UOPGDLGOZPZMXYL7877-7Pawjl HGB X5P52655-89.8 %12/29/2018 [facility] [address], [place] [address]W5H-CMOAELPPHQRSGSF4268-8vIN07085-7509 mg/dL12/29/2018 [facility] [address] [place] [address] Procedures Procedure Codes Date Electrocardiogram Finding/Sinus BradycardiaCPT-4: 53725Fclukbu44/27/2019 Vital Signs Date Vital 12/27/2018 Blood Pressure 1: 110/78 Code: 8480-6 BMI: 54.3 Code: 06204-7 Heart Rate 1: 66 bpm Height: 4'11 Code: 8302-2 Karnofsky Score (0-100): 60 Random Blood Sugar: 112/NaN Respiratory Rate: 18 bpm SpO2: 99% Temperature: 36.8 (C) / 98.2 (F) Weight: 269 lbs Code: 48464-6 Reason For Visit Reason For Visit Effective Dates Notes hypertension 12/27/2018 diabetes mellitus 12/27/2018 headache 12/27/2018 Encounters Encounter Performer Location Location Address Codes Magdi e HOME VISIT EST PATIENT Diagnosis: Type 2 diabetes mellitus without complications[ICD10: E11.9] Diagnosis: Essential (primary) hypertension[ICD10: I10] Diagnosis: Unspecified asthma, uncomplicated[ICD10: J45.909] Diagnosis: Edema, unspecified[ICD10: R60.9] Diagnosis: Hypothyroidism, unspecified[ICD10: E03.9] Diagnosis: Abnormal electrocardiogram [ECG] [EKG][ICD10: R94.31]Rasta Bridges [address] [place] [address] CPT-4: 9582654 Plan of Care Planned Activity Notes Codes [...] Will modify POC PRN. Labs drawn per [facility] Protocol to assess current status & the effectiveness of the current POC E11.9- 250.00 Type 2 diabetes mellitus without complications Chronic, stable, diet controlled (FBS around 92), RBS 112, denies hypoglycemia. 09/06/18: A1c- 5.7 & 05/31/19: A1c- 6.0 POC: no change to POC needed. Will continue to monitor & assess the effectiveness of the current POC Labs drawn per [facility] Protocol to assess current status & the effectiveness of the current POC J45.909-493.90 Unspecified asthma, uncomplicated R06.2-786.07 Wheezing Chronic, stable, con trolled (PaO2 99%- RA). Denies recent flair in s/s or recent illness. Singulair 10 mg tablet 1 Tablet(s) PO daily 30 days Refills: 5 Qty: 30 [06/14/2018 - 12/10/2018] Ventolin HFA 90 mcg/actuation aerosol inhaler 2 Puff(s) INH QID 30 days Refills: 3 Qty: 1 [06/14/2018 - 10/11/2018] POC: will continue to evaluate the effectiveness of current POC &modify PRN. R60.9-782.3 Edema, unspecified hydrochlorothiazide 12.5 mg tablet 1 Tablet(s) PO QAM POC: continue on current medications, keep legs & feet elevated when sitting, avoid high salt foods. E03.9-244.9 Hypothyroidism, unspecified levothyroxine 50 mcg tablet 1 Tablet(s) PO daily 90 days 05/2918: TSH- 2.190 POC: FT4 drawn per [facility] Protocol R94.31-794.31 Abnormal electrocardiogram[ECG] [EKG] 05/11/18: Sinus Rhythm - T-abnormality - Possible Anterior ischemia pattern. ABNORMAL 12/27/18: Sinus Bradycardia - Negative T-waves - May be normal for this age. NORMAL FOR AGE POC: will continue to monitor: no need to refer to cardiology ATT. ` Will do a f/u ECG in 6 months & PRN, ifstill WNL will changed this Dx to resolved. F43.23-309.28 Adjustment disorder with mixed anxiety and depressed mood F43.10-309.81 Post-traumatic stress disorder, unspecified Pt's daughter has violentoutbursts and doesn't live with her at this time. 06/14/18: pt visited by CPS earlier today. On probation. No contact with daughter. Cannot leave [place]. 09/15/[address]: may not understand the charges, needs to get evaluated to see if she can understand the charges. Reduced to misdemepolly 3 (C)10/16/18 Court. , may have to go to court . 09/20/18: gets sentenced for rapingtheir daughter, probably get sentenced to 6-8 yrs in senior living. I'm going to stand right beside him no matter what 11/29/18: just release from 30+ days in [facility], released early from a 60 day sentence. [...] [06/14/2018 - 08/12/2018] POC[facility] BAUDILIO Dowling Seeing counselor at [facility] also R51-784.0 Headache 09/21/18: [facility] pt stated she had been out of medication for 3 days. Pt states that she didn't get to the natural headache medication: the only thing that works for her. 3/27/19: headaches are less frequent & less severe. Pt stat es that may have been d/t her legal trouble. N18.9-585.9 Chronic kidney disease, unspecified 09/06/18: GFR- 104, Cr- 0.7, BUN- 8, K- 4.0, Mg & Phos- WNL 05/31/18: GFR-92, Cr- 0.7, BUN-18, K- 4.0 POC: will move this Dx to resolved 12/27/2018Patient Education: ZnqgqmmomXpsjopgqi60/27/2019Patient Education: FlkakrevOcaxwgerb76/27/2019Patient Education: NclqcvxzupahYxhnerzba36/27/2019 Patient Education: Patient Medication UebskhrGtdwupwiy34/27/2019Referral: Pending Gynecology Referral InformationReferralProcessedReferral: Pending Pulmonology Referral InformationReferralProcessedReferral: Pending Psychiatry Referral InformationReferralInitiatedReferral: Pending Respiratory Services Referral InformationReferralInitiatedReferral: Pending Ophthalmology Referral InformationReferralInitiatedReferral: [facility] WPtel: [address] [place] [address] [place] [address] USWriter placed a call out to the patient to notify her that it has been recommended that she be seenby 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 Patient agreed to be seen, does not have a provider of choice and no transportationissues. Buggy Driver faxed referral and clinical notes to [facility] in [place], [place] near the patient's home. Patient to [...] seen and prefers a provider in the [place] or [place] area. Buggy Driver placed a call out to everyone listed in the area and the only location that was able to accept the patient's insurance was [address] [address] and spoke with Maylin. Maylin asked that the patient's referral, face sheet and visit notes be faxed to . Buggy Driver faxed over requested documents. Patient appointment confirmation letter generated and mailed to her home address. Patient to call to schedule an appointment.ProcessedReferral: [facility] WPtel: [address] [place] [address] [place], [place] [id number] USPatient notified that it has been advised that she be seen by Neurology. Patient agreed to be seen and prefers to be seen by a provider in the [place], [place] area. Patient denies any concerns with transportation, and prefers to schedule her own appointment. Buggy Driver placed a call out to [facility] and spoke with Neeraj Mcfarland: who confirmed that their office is able to acceptnew patients and the patient's insurance. After confirming the providers fax number, proposal writer faxed over the patient's referral, and most recent clinical notes to F: . Patient to call to schedule her appointment. Appointment confirmation letter mailed to the patient's home address. CCDA completed.ProcessedReferral: Pending Nephrology Referral InformationReferralProcessedReferral: Pending Podiatry Referral Information ReferralInitiatedReferral: Pending Podiatry Referral InformationReferral ProcessedReferral: Pending Podiatry Referral InformationReferralInitiated Instructions Comment Date . I10-401.9 Essential (prima [...] of the current POC Labs drawn per [facility] Protocol to assess current status & the [...] 05/2918: TSH- 2.190 POC: FT4 drawn per [facility] Protocol R94.31-794.31 Abnormal electrocardiogram [ECG] [EKG] 05/11/18: [...] probably get sentenced to 6-8 yrs in senior living. I'm going to stand right beside him no matter what 11/29/18: just release from 30+ days in [facility], released early from a 60 day sentence. [...] [06/14/2018 - 08/12/2018] POC: being managed by [facility] BAUDILIO Dowling Seeing counselor at [facility] also R51-784.0 Headache 09/21/18: [facility] pt stated she had been out of [...]
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
--- OUTSIDE RECORDS SUMMARY | 2019-02-07 20:00 | XMS_ITS | CCD ---
Author Name Ursula Palafox NP y Address [address] [facility] [address] [place] [address] Phone Organization [facility] Phone Care Team Providers Care News Operations Manager Name Role Phone Palomo KING, Anna Primary Care Provider Unav ailable Unavailable Chronic Care Management Unavaila ble Summary Purpose DataExchange Insurance Providers Payer name Policy type / Coverage type Covered libertarian ID Effective Begin Date Effective End Date SUKI BUTTS [facility] [id number] Unknown Unknown Family history Mother Diagnosis Age [...] 05/31/2018 Education level Unknown Some High School 10th05/31/20185793OylwxcchxtUnzvacgTlighxvnnp63/29/2018Tobacco historySNOMED CT: 550370804Hjf never smoked or chewed dqjhqbp5005/31/2018Alcohol historySNOMED CT: 018743846Hcdlm drinks fnpbvzc8405/31/2018Has the patient ever used illegal drugs? UnknownHas never used illegal drugs05/31/2018DNR Order/ Advanced Directive UnknownFull Code05/31/2018 Allergies, Adverse Reactions, Alerts Substance Reaction Codes Entered Date Inactivated Date Status *No known food allergies Mvackbi1009/06/2018No Inactive DateActiveMethylprednisolonehivesRxNorm: 6902 09/06/2018No Inactive DateActive Problems Condition Codes Effective Dates Condition St atus Apnea, not elsewhere classified ICD-10: R06.81 ICD-9: 786.0305ActiveBody mass index (BMI) 50-59.9 , adultICD-10: Z68.43 ICD-9: V85.4308ActiveDyspnea, unspecifiedICD-10: R06.00 ICD-9: 786.0905ActivePost-traumatic stress disorder, unspecifiedICD-10: F43.10 ICD-9: 309.8112ActiveUnspecified asthma, uncomplicatedICD-10: J45.909 ICD-9: 493.9011ActiveEssential (primary) hypertensionICD-10: I10 ICD-9: 401.901ActiveType 2 diabetes mellitus without complicationsICD- 10: E11.9 ICD-9: 250.0001ActiveWheezingICD-10: R06.2 ICD-9: 786.0711ActiveAbnormal electrocardiogram [ECG] [EKG]ICD-10: R94.31 ICD-9: 794.31005/30/2018ActiveEdema, unspecifiedICD-10: R60.9 ICD-9: 782.310ActiveHypothyroidism, unspecifiedICD-10: E03.9 ICD-9: 244.9111/06/2017ActiveAdjustment disorder with mixed anxiety and depressed moodICD-10: F43.23 ICD-9: 309.2812ActiveChest pain, unspecifiedICD-10: R07.9 ICD-9: 786.5002ActiveHeadacheICD-10: R51 ICD-9: 784.001ActiveAcute upper respiratory infection, unspecifiedICD- 10: J06.9 ICD-9: 465.912ResolvedChronic kidney disease, unspecifiedICD-10: N18.9 ICD-9: 585.9010/03/2018ResolvedPolyneuropathy, unspecifiedICD-10: G62.9 ICD-9: 356.908ActiveEncounter for screening, unspecifiedICD-10: Z13.9 ICD-9: V82.9111/06/2017ActiveLong term (current) use of non-steroidal anti- inflammatories (NSAID)ICD-10: Z79.1 ICD-9: V58.6409ActiveHyperlipidemia, unspecifiedICD-10: E78.5 ICD-9: 272.408Active Medications Medication Codes Instructions Start Date Stop Date Status Fill Instructions gabapentin 300 mg capsule RxNorm: 789773 1 Capsule(s) PO TID as needed 02/01/202018 Inactive True Metrix Glucose Test Strip RxNorm: 1 Test Strips Miscellaneous QAM 02/01/202018 Inactive 100/container Alcohol Prep Pads RxNorm: 006405 1 Patch TOP QAM 02/01/202018 Inactive TRUEplus Lancets 30 gauge RxNorm: 1 Lancets Miscellaneous QAM 02/01/202018 Inactive 100/box lisinopril 2.5 mg tablet RxNorm: 028049 1 Tablet(s) PO daily 12/28/192018 Inactive ranitidine 150 mg tablet RxNorm: 505831 1 Tablet(s) PO BID 10/21/192018 Inactive This refill negates all other refills of this medication albuterol sulfate 2.5 mg/3 mL (0.083 %) solution for nebulization RxNorm: 475946 1 Vial INH QID 10/21/192018 Inactive 60/box. This refill negates all other refills of this medication. Please do not fill early. Please do not auto refill. atorvastatin 20 mg tablet RxNorm: 382938 1 Tablet(s) PO QHS 10/21/192018 Inactive This refill negates all other refills of this medication Ventolin HFA 90 mcg/actuation aerosol inhaler RxNorm: 981676 2 Puff(s) INH QID 10/21/192018 Inactive Please do not fill early. Please do not auto refill. This refill negates all other refills of this medication Calcium 600-D3 Plus 600 mg calcium-800 unit-50 mg tablet RxNorm: 1 Tablet(s) PO daily take an additonal tablet for itching. 10/21/19 19 2018 Inactive This refill negates all other refills of this medication Singulair 10 mg tablet RxNorm: 883725 1 Tablet(s) PO daily 10/21/192018 Inactive This refill negates all other refills of this medication buspirone 7.5 mg tablet RxNorm: 367341 1 Tablet(s) PO BID 10/21/192018 Inactive This refill negates all other refills of this medication hydrochlorothiazide 12.5 mg tablet RxNorm: 649040 1 Tablet(s) PO QAM 10/21/19 19 2018 Inactive levothyroxine 50 mcg tablet RxNorm: 747307 1 Tablet(s) PO daily 10/21/192018 Inactive This refill negates all other refills of this medication cetirizine 10 mg tablet RxNorm: 6470463 1 Tablet(s) PO daily 10/21/192018 Inactive This [...] this medication gabapentin 300 mg capsule RxNorm: 545873 1 Capsule(s) PO TID as needed 10/21/19 19 2018 Inactive trazodone 50 mg tablet RxNorm: 899313 1 Tablet(s) PO QHS 10/21/192018 Inactive This refill negates all other refills of this medication diclofenac sodium 75 mg tablet,delayed release RxNorm: 740581 1 Tablet(s) PO BID 10/21/19 19 2018 Inactive This refill negates all other refills of this medication metoprolol succinate ER 50 mg tablet,extended release 24 hr RxNorm: 085400 1 Tablet(s) PO daily 10/21/19 19 2018 Inactive This refill negates all other refills of this medication buspirone 7.5 mg tablet RxNorm: 209293 1 Tablet(s) PO BID 10/12/19 19 2018 Inactive cetirizine 10 mg tablet RxNorm: 0567484 1 Tablet(s) PO daily 09/28/20 18 2018 Inactive Guaiasorb DM 10 mg-100 mg/5 mL oral liquid RxNorm: 707507 10 Milliliter(s) PO As needed every 4 hr 09/24/20 18 2018 Inactive Vicks Vaporub 4.7 %-1.2 %-2.6 % topical ointment RxNorm: 9177720 1 Application TOP TID 09/24/20 18 2018 Inactive levmetamfetamine 50 mg nasal inhaler RxNorm: 1 Unit(s) NASAL Q3-4H 09/24/20 18 2017 Inactive sertraline 50 mg tablet RxNorm: 082276 1 Tablet(s) PO daily 09/09/20 18 2018 Inactive Please note dose trazodone 50 mg tablet RxNorm: 600155 1 Tablet(s) PO QHS 09/06/20 18 2018 Inactive sertraline 50 mg tablet RxNorm: 568758 1 Tablet(s) PO daily 09/06/20 18 2017 Inactive amoxicillin 500 mg tablet RxNorm: 963178 1 Tablet(s) PO Q12H 08/31/20 18 2017 Inactive albuterol sulfate 2.5 mg/3 mL (0.083 %) solution for nebulization RxNorm: 950233 1 Vial INH QID 08/10/20 18 2018 Inactive 60/box. Please do not fill early. Please do not auto refill. Prozac 10 mg capsule RxNorm: 723488 1 Capsule(s) PO daily 08/09/20 18 2017 Inactive buspirone 7.5 mg tablet RxNorm: 583419 1 Tablet(s) PO BID 08/09/20 18 2018 Inactive gabapentin 300 mg capsule RxNorm: 355454 1 Capsule(s) PO TID as needed 08/01/20 18 2018 Inactive hydrochlorothiazide 12.5 mg tablet RxNorm: 400968 1 Tablet(s) PO QAM 08/01/20 18 2018 Inactive ranitidine 150 mg tablet RxNorm: 915418 1 Tablet(s) PO BID 08/01/20 18 2018 Inactive Macrobid 100 mg capsule RxNorm: 614286 1 Capsule(s) PO Q12H 06/21/20 18 2017 Inactive Singulair 10 mg tablet RxNorm: 171011 1 Tablet(s) PO daily 06/14/20 18 2018 Inactive Ventolin HFA 90 mcg/actuation aerosol inhaler RxNorm: 1106084 2 Puff(s) INH QID 06/14/20 18 2018 Inactive Singulair 10 mg tablet RxNorm: 624923 1 Tablet(s) PO daily 06/14/20 18 2017 Inactive buspirone 7.5 mg tablet RxNorm: 944194 1 Tablet(s) PO BID 06/14/20 18 2017 Inactive Prozac 10 mg capsule RxNorm: 792770 1 Capsule(s) PO daily 06/14/20 18 2017 Inactive Neilmed Pediatric Sinus Rinse Refill packet RxNorm: 1 Unit Dose NASAL PRN 05/31/20 18 2021 Inactive diclofenac sodium 75 mg tablet,delayed release RxNorm: 904213 1 Tablet(s) PO BID 05/31/20 18 2017 Inactive lisinopril 2.5 mg tablet RxNorm: 369075 1 Tablet(s) PO daily 05/31/20 18 2017 Inactive metoprolol succinate ER 50 mg tablet,extended release 24 hr RxNorm: 220826 1 Tablet(s) PO daily 05/31/20 18 2017 Inactive levothyroxine 50 mcg tablet RxNorm: 465181 1 Tablet(s) PO daily 05/31/20 18 2017 Inactive TRUEplus Lancets 30 gauge RxNorm: 1 Lancets Miscellaneous QAM 05/31/20 18 2017 Inactive 100/box Ventolin HFA 90 mcg/actuation aerosol inhaler RxNorm: 914921 2 Puff(s) INH QID 05/31/20 18 2017 Inactive Aleve 220 mg capsule RxNorm: 9658099 1 Capsule(s) PO BID 05/31/20 18 2018 Inactive ranitidine 150 mg tablet RxNorm: 673466 1 Tablet(s) PO BID 05/31/20 18 2017 Inactive gabapentin 300 mg capsule RxNorm: 820829 1 Capsule(s) PO TID as needed 05/31/20 18 2017 Inactive atorvastatin 20 mg tablet RxNorm: 779098 1 Tablet(s) PO QHS 05/31/20 18 2017 Inactive True Metrix Glucose Test Strip RxNorm: 1 Test Strips Miscellaneous QAM 05/31/20 18 2017 Inactive 50/container Calcium 600-D3 Plus 600 mg calcium-800 unit-50 mg tablet RxNorm: 1 Tablet(s) PO daily take an additonal tablet for itching. 05/31/20 18 2017 Inactive hydrochlorothiazide 12.5 mg tablet RxNorm: 917790 1 Tablet(s) PO QAM 05/31/20 18 2017 Inactive Flintstones Complete (iron) 18 mg iron chewable tablet RxNorm: 1 Tablet(s) PO daily 05/31/20 18 2017 Inactive True Metrix Glucose Meter RxNorm: miscellaneous 08/17/20 19 2018 Inactive sertraline 50 mg tablet RxNorm: 392414 1 Tablet(s) PO daily 11/28/19 20 2019 Inactive loperamide 2 mg tablet RxNorm: 680689 oral 09/29/20 19 2018 Inactive d-mannose oral powder RxNorm: PO 18 2021 Inactive Medication Administered No Medication Administered data Reason For Visit No Reason For Visit data Plan of Care Planned Activity Notes Codes Status Date Patient Education: Patient Medication Summary Fsxukkkxf19/09/2019Appointment: Rasta Palafox WPtel: [address] [facility] [id number]: Rasta Palafox WPtel: [address] [facility] [address] [id number]: Pending Gynecology Referral InformationReferral ProcessedReferral: Pending Pulmonology Referral InformationReferralProcessed Referral: Pending Psychiatry Referral InformationReferralInitiatedReferral: Pending Respiratory Services Referral InformationReferralInitiatedReferral: Pending Ophthalmology Referral InformationReferralInitiatedReferral: [facility] WPtel: [address] [place] [address] [address] [facility] USWriter placed a call out to the patient to notify her that it has been recommended that she be seenby 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 Patient agreed to be seen, does not have a provider of choice and no transportationissues. [employer] Stitcher Hand faxed referral and clinical notes to [facility] in [place], [place] near the patient's home. Patient to [...] seen and prefers a provider in the [place] or [facility]. [employer] Stitcher Hand placed a call out to everyone listed in the area and the only location that was able to accept the patient's insurance was [address] [address] and spoke with Maylin. Maylin asked that the patient's referral, face sheet and visit notes be faxed to . [employer] Stitcher Hand faxed over requested documents. Patient appointment confirmation letter generated and mailed to her home address. Patient to call to schedule an appointment.ProcessedReferral: [facility] WPtel: [address] [place], [place] [id number] USPatient notified that it has been advised that she be seen by Neurology. Patient agreed to be seen and prefers to be seen by a provider in the [place], [place] area. Patient denies any concerns with transportation, and prefers to schedule her own appointment. [employer] Stitcher Hand placed a call out to [facility] and spoke with Neeraj P: who confirmed that their office is able to acceptnew patients and the patient's insurance. After confirming the providers fax number, communications writer faxed over the patient's referral, and [...]
--- OUTSIDE RECORDS SUMMARY | 2019-02-18 20:00 | XMS_ITS | CCD ---
Author Name Usrula Palafox NP y Address [address] [facility] [address] [place] [address] Phone Organization [facility] Phone Care Team Providers Care Residential Property Consultant Name Role Phone Palomo KING, Anna Primary Care Provider Unav ailable Unavailable Chronic Care Management Unavaila ble Summary Purpose DataExchange Insurance Providers Payer name Policy type / Coverage type Covered constitution party ID Effective Begin Date Effective End Date SUKI BUTTS [facility] [id number] Unknown Unknown Family history Mother Diagnosis Age [...] 05/31/2018 Education level Unknown Some High School 10th05/31/20187096TacnykrmggRestcwkAnivyysntk26/29/2018Tobacco historySNOMED CT: 451111138Fwu never smoked or chewed mtmsjxq9605/31/2018Alcohol historySNOMED CT: 706565819Fvorl drinks rkhxrcq5905/31/2018Has the patient ever used illegal drugs? UnknownHas never used illegal drugs05/31/2018DNR Order/ Advanced Directive UnknownFull Code05/31/2018 Allergies, Adverse Reactions, Alerts Substance Reaction Codes Entered Date Inactivated Date Status *No known food allergies Odugfno4009/06/2018No Inactive DateActiveMethylprednisolonehivesRxNorm: 6902 09/06/2018No Inactive DateActive Problems [...] Fill Instructions gabapentin 300 mg capsule RxNorm: 313228 1 Capsule(s) PO TID as needed 02/01/202018 Inactive True Metrix Glucose Test Strip RxNorm: 1 Test Strips Miscellaneous QAM 02/01/202018 Inactive 100/container Alcohol Prep Pads RxNorm: 455363 1 Patch TOP QAM 02/01/202018 Inactive TRUEplus Lancets 30 gauge RxNorm: 1 Lancets Miscellaneous QAM 02/01/202018 Inactive 100/box lisinopril 2.5 mg tablet RxNorm: 521051 1 Tablet(s) PO daily 12/28/192018 Inactive ranitidine 150 mg tablet RxNorm: 282241 1 Tablet(s) PO BID 10/21/192018 Inactive This refill negates all other refills of this medication albuterol sulfate 2.5 mg/3 mL (0.083 %) solution for nebulization RxNorm: 985880 1 Vial INH QID 10/21/192018 Inactive 60/box. This refill negates all other refills of this medication. Please do not fill early. Please do not auto refill. atorvastatin 20 mg tablet RxNorm: 989598 1 Tablet(s) PO QHS 10/21/192018 Inactive This refill negates all other refills of this medication Ventolin HFA 90 mcg/actuation aerosol inhaler RxNorm: 794714 2 Puff(s) INH QID 10/21/192018 Inactive Please do not fill early. Please do not auto refill. This refill negates all other refills of this medication Calcium 600-D3 Plus 600 mg calcium-800 unit-50 mg tablet RxNorm: 1 Tablet(s) PO daily take an additonal tablet for itching. 10/21/19 19 2018 Inactive This refill negates all other refills of this medication Singulair 10 mg tablet RxNorm: 137253 1 Tablet(s) PO daily 10/21/192018 Inactive This refill negates all other refills of this medication buspirone 7.5 mg tablet RxNorm: 727711 1 Tablet(s) PO BID 10/21/192018 Inactive This refill negates all other refills of this medication hydrochlorothiazide 12.5 mg tablet RxNorm: 426858 1 Tablet(s) PO QAM 10/21/19 19 2018 Inactive levothyroxine 50 mcg tablet RxNorm: 747771 1 Tablet(s) PO daily 10/21/192018 Inactive This refill negates all other refills of this medication cetirizine 10 mg tablet RxNorm: 7599889 1 Tablet(s) PO daily 10/21/192018 Inactive This [...] this medication gabapentin 300 mg capsule RxNorm: 335052 1 Capsule(s) PO TID as needed 10/21/19 19 2018 Inactive trazodone 50 mg tablet RxNorm: 379085 1 Tablet(s) PO QHS 10/21/192018 Inactive This refill negates all other refills of this medication diclofenac sodium 75 mg tablet,delayed release RxNorm: 218335 1 Tablet(s) PO BID 10/21/19 19 2018 Inactive This refill negates all other refills of this medication metoprolol succinate ER 50 mg tablet,extended release 24 hr RxNorm: 360805 1 Tablet(s) PO daily 10/21/19 19 2018 Inactive This refill negates all other refills of this medication buspirone 7.5 mg tablet RxNorm: 368153 1 Tablet(s) PO BID 10/12/19 19 2018 Inactive cetirizine 10 mg tablet RxNorm: 2590195 1 Tablet(s) PO daily 09/28/20 18 2018 Inactive Guaiasorb DM 10 mg-100 mg/5 mL oral liquid RxNorm: 772028 10 Milliliter(s) PO As needed every 4 hr 09/24/20 18 2018 Inactive Vicks Vaporub 4.7 %-1.2 %-2.6 % topical ointment RxNorm: 7840477 1 Application TOP TID 09/24/20 18 2018 Inactive levmetamfetamine 50 mg nasal inhaler RxNorm: 1 Unit(s) NASAL Q3-4H 09/24/20 18 2017 Inactive sertraline 50 mg tablet RxNorm: 319540 1 Tablet(s) PO daily 09/09/20 18 2018 Inactive Please note dose trazodone 50 mg tablet RxNorm: 551472 1 Tablet(s) PO QHS 09/06/20 18 2018 Inactive sertraline 50 mg tablet RxNorm: 106694 1 Tablet(s) PO daily 09/06/20 18 2017 Inactive amoxicillin 500 mg tablet RxNorm: 716747 1 Tablet(s) PO Q12H 08/31/20 18 2017 Inactive albuterol sulfate 2.5 mg/3 mL (0.083 %) solution for nebulization RxNorm: 840903 1 Vial INH QID 08/10/20 18 2018 Inactive 60/box. Please do not fill early. Please do not auto refill. Prozac 10 mg capsule RxNorm: 799602 1 Capsule(s) PO daily 08/09/20 18 2017 Inactive buspirone 7.5 mg tablet RxNorm: 058014 1 Tablet(s) PO BID 08/09/20 18 2018 Inactive gabapentin 300 mg capsule RxNorm: 269181 1 Capsule(s) PO TID as needed 08/01/20 18 2018 Inactive hydrochlorothiazide 12.5 mg tablet RxNorm: 919398 1 Tablet(s) PO QAM 08/01/20 18 2018 Inactive ranitidine 150 mg tablet RxNorm: 092506 1 Tablet(s) PO BID 08/01/20 18 2018 Inactive Macrobid 100 mg capsule RxNorm: 223332 1 Capsule(s) PO Q12H 06/21/20 18 2017 Inactive Singulair 10 mg tablet RxNorm: 427829 1 Tablet(s) PO daily 06/14/20 18 2018 Inactive Ventolin HFA 90 mcg/actuation aerosol inhaler RxNorm: 0183631 2 Puff(s) INH QID 06/14/20 18 2018 Inactive Singulair 10 mg tablet RxNorm: 777132 1 Tablet(s) PO daily 06/14/20 18 2017 Inactive buspirone 7.5 mg tablet RxNorm: 279511 1 Tablet(s) PO BID 06/14/20 18 2017 Inactive Prozac 10 mg capsule RxNorm: 465520 1 Capsule(s) PO daily 06/14/20 18 2017 Inactive Neilmed Pediatric Sinus Rinse Refill packet RxNorm: 1 Unit Dose NASAL PRN 05/31/20 18 2021 Inactive diclofenac sodium 75 mg tablet,delayed release RxNorm: 244529 1 Tablet(s) PO BID 05/31/20 18 2017 Inactive lisinopril 2.5 mg tablet RxNorm: 505652 1 Tablet(s) PO daily 05/31/20 18 2017 Inactive metoprolol succinate ER 50 mg tablet,extended release 24 hr RxNorm: 333567 1 Tablet(s) PO daily 05/31/20 18 2017 Inactive levothyroxine 50 mcg tablet RxNorm: 033731 1 Tablet(s) PO daily 05/31/20 18 2017 Inactive TRUEplus Lancets 30 gauge RxNorm: 1 Lancets Miscellaneous QAM 05/31/20 18 2017 Inactive 100/box Ventolin HFA 90 mcg/actuation aerosol inhaler RxNorm: 291017 2 Puff(s) INH QID 05/31/20 18 2017 Inactive Aleve 220 mg capsule RxNorm: 7503691 1 Capsule(s) PO BID 05/31/20 18 2018 Inactive ranitidine 150 mg tablet RxNorm: 416366 1 Tablet(s) PO BID 05/31/20 18 2017 Inactive gabapentin 300 mg capsule RxNorm: 653188 1 Capsule(s) PO TID as needed 05/31/20 18 2017 Inactive atorvastatin 20 mg tablet RxNorm: 355514 1 Tablet(s) PO QHS 05/31/20 18 2017 Inactive True Metrix Glucose Test Strip RxNorm: 1 Test Strips Miscellaneous QAM 05/31/20 18 2017 Inactive 50/container Calcium 600-D3 Plus 600 mg calcium-800 unit-50 mg tablet RxNorm: 1 Tablet(s) PO daily take an additonal tablet for itching. 05/31/20 18 2017 Inactive hydrochlorothiazide 12.5 mg tablet RxNorm: 846256 1 Tablet(s) PO QAM 05/31/20 18 2017 Inactive Flintstones Complete (iron) 18 mg iron chewable tablet RxNorm: 1 Tablet(s) PO daily 05/31/20 18 2017 Inactive True Metrix Glucose Meter RxNorm: miscellaneous 08/17/20 19 2018 Inactive sertraline 50 mg tablet RxNorm: 075994 1 Tablet(s) PO daily 11/28/19 20 2019 Inactive loperamide 2 mg tablet RxNorm: 144602 oral 09/29/20 19 2018 Inactive d-mannose oral powder RxNorm: PO 18 2021 Inactive Medication Administered No Medication Administered data Vital Signs Date Vital 02/14/2019 Blood Pressure 1: 122/80 Code: 8480-6 BMI: 56.1 Code: 62473-2 Heart Rate 1: 102 bpm Height: 4'11 Code: 8302-2 Respiratory Rate: 20 bpm SpO2: 98% Temperature: 37.2 (C) / 99.0 (F) Weight: 278 lbs Code: 38501-8 Reason For Visit Reason For Visit Effective Dates Notes apneic events 02/14/2019 Encounters Encounter Performer Location Location Address Codes Magdi e HOME VISIT EST PATIENT Diagnosis: Apnea, not elsewhere classified[ICD10: R06.81] Diagnosis: Body mass index (BMI) 50-59.9 , adult[ICD10: Z68.43]Rasta Tejada [id number] [place] [address] [address] [place], [place] [address]QMA-9: [id number] Plan of Care Planned Activity Notes Codes Status Date Visit Plan: R06.81-786.03 Apnea, not elsewhere classified Increase in awake apnea. Discussed could also have a neurological &/or psychiatric etiology, but will start with Pulmonology POC: 02/08/19- referred to [facility] at [address] [place] [address], p [phone], Z68.43-V85.43 Body mass index (BMI) 50-59.9 , adult 18 lb weight gain since November. Discussed could be contributing to, but is not causing awake apnea events. 02/14/2019Patient Education: Patient Medication AchhacxMrfjbmxoe24/15/2019 Appointment: Rasta Palafox WPtel: [address] [facility] [id number]: Rasta Palafox WPtel: [address] [facility] [id number]: Pending Gynecology Referral InformationReferral ProcessedReferral: Pending Pulmonology Referral InformationReferralProcessed Referral: Pending Psychiatry Referral InformationReferralInitiatedReferral: Pending Respiratory Services Referral InformationReferralInitiatedReferral: Pending Ophthalmology Referral InformationReferralInitiatedReferral: [facility] W[facility]el: [address] [place], [place] [phone] USWriter placed a call out to the patient to notify her that it has been recommended that she be seenby 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 Patient agreed to be seen, does not have a provider of choice and no transportationissues. Facing End Trimmer faxed referral and clinical notes to [facility] in [place], [place] near the patient's home. Patient to [...] seen and prefers a provider in the [place] or [place] area. Facing End Trimmer placed a call out to everyone listed in the area and the only location that was able to accept the patient's insurance was [address] [address] and spoke with Maylin. Maylin asked that the patient's referral, face sheet and visit notes be faxed to . Facing End Trimmer faxed over requested documents. Patient appointment confirmation letter generated and mailed to her home address. Patient to call to schedule an appointment.ProcessedReferral: [facility] WPtel: [address] [place] [address] [place], [place] [id number] USPatient notified that it has been advised that she be seen by Neurology. Patient agreed to be seen and prefers to be seen by a provider in the [place], [place] area. Patient denies any concerns with transportation, and prefers to schedule her own appointment. Facing End Trimmer placed a call out to [facility] [...] start with Pulmonology POC: 02/08/19- [facility] at [address] [place] [address], p [phone], Z68.43-V85.43 Body mass index (BMI) 50-59.9 , adult 18 lb weight gain since November. Discussed could be contributing to, but is not causing awake apnea events. 02/14/2019 Medical Equipment No Medical Equipment data Advance Directives No Advance Directive data
--- OUTSIDE RECORDS SUMMARY | 2019-03-30 20:00 | XMS_ITS | CCD ---
Author Name Ursula Palafox NP y Address [address] [place] [address] Phone Organization [email or web address] Phone Care Team Providers Care Board Operator Name Role Phone Palomo KING, Anna Primary Care Provider Unav ailable Unavailable Chronic Care Management Unavaila ble Summary Purpose DataExchange Insurance Providers Payer name Policy type / Coverage type Covered republican ID Effective Begin Date Effective End Date [facility] [employer] [facility] [id number] Unknown Unknown Family history Mother Diagnosis Age [...] 05/31/2018 Education level Unknown Some High School 10th05/31/20186057PscbognwczLzgpmsySurisdupxo62/29/2018Tobacco historySNOMED CT: 126392904Ljs never smoked or chewed njuypcn6705/31/2018Alcohol historySNOMED CT: 571717876Rzznv drinks vippyem0405/31/2018Has the patient ever used illegal drugs? UnknownHas never used illegal drugs05/31/2018DNR Order/ Advanced Directive UnknownFull Code05/31/2018 Allergies, Adverse Reactions, Alerts Substance Reaction Codes Entered Date Inactivated Date Status *No known food allergies Yibqdad9409/06/2018No Inactive DateActiveMethylprednisolonehivesRxNorm: 6902 09/06/2018No Inactive DateActive Problems Condition Codes Effective Dates Condition St atus Apnea, not elsewhere classified ICD-10: R06.81 ICD-9: 786.0305ActiveBody mass index (BMI) 50-59.9 , adultICD-10: Z68.43 ICD-9: V85.4308ActiveChest pain, unspecifiedICD-10: R07.9 ICD-9: 786.5002ActiveEncounter for preprocedural cardiovascular examinationICD-10: Z01.810 ICD-9: V72.8106ActiveEssential (primary) hypertensionICD-10: I10 ICD-9: 401.901ActiveUnspecified asthma, uncomplicatedICD-10: J45.909 ICD-9: 493.9011ActiveDyspnea, unspecifiedICD-10: R06.00 ICD-9: 786.0905ActivePost-traumatic stress disorder, unspecifiedICD-10: F43.10 ICD-9: 309.8112ActiveType 2 diabetes mellitus without complicationsICD- 10: E11.9 ICD-9: 250.0001ActiveWheezingICD-10: R06.2 ICD-9: 786.0711ActiveAbnormal electrocardiogram [ECG] [EKG]ICD-10: R94.31 ICD-9: 794.3108ActiveEdema, unspecifiedICD-10: R60.9 ICD-9: 782.310/06/2018ActiveHypothyroidism, unspecifiedICD-10: E03.9 ICD-9: 244.912ActiveAdjustment disorder with mixed anxiety and depressed moodICD-10: F43.23 ICD-9: 309.2812ActiveHeadacheICD-10: R51 ICD-9: 784.001ActiveAcute upper respiratory infection, unspecifiedICD- 10: J06.9 ICD-9: 465.912ResolvedChronic kidney disease, unspecifiedICD-10: N18.9 ICD-9: 585.901ResolvedPolyneuropathy, unspecifiedICD-10: G62.9 ICD-9: 356.908ActiveEncounter for screening, unspecifiedICD-10: Z13.9 ICD-9: V82.912ActiveLong term (current) use of non-steroidal anti- inflammatories (NSAID)ICD-10: Z79.1 ICD-9: V58.6409ActiveHyperlipidemia, unspecifiedICD-10: E78.5 ICD-9: 272.408Active Medications Medication Codes Instructions Start Date Stop Date Status Fill Instructions gabapentin 300 mg capsule RxNorm: 872968 1 Capsule(s) PO TID as needed 02/01/202018 Inactive True Metrix Glucose Test Strip RxNorm: 1 Test Strips Miscellaneous QA 02/01/202018 Inactive 100/container Alcohol Prep Pads RxNorm: 598392 1 Patch TOP QAM 02/01/202018 Inactive TRUEplus Lancets 30 gauge RxNorm: 1 Lancets Miscellaneous QAM 02/01/202018 Inactive 100/box lisinopril 2.5 mg tablet RxNorm: 354674 1 Tablet(s) PO daily 12/28/192018 Inactive ranitidine 150 mg tablet RxNorm: 502526 1 Tablet(s) PO BID 10/21/192018 Inactive This refill negates all other refills of this medication albuterol sulfate 2.5 mg/3 mL (0.083 %) solution for nebulization RxNorm: 521931 1 Vial INH QID 10/21/192018 Inactive 60/box. This refill negates all other refills of this medication. Please do not fill early. Please do not auto refill. atorvastatin 20 mg tablet RxNorm: 429914 1 Tablet(s) PO QHS 10/21/192018 Inactive This refill negates all other refills of this medication Ventolin HFA 90 mcg/actuation aerosol inhaler RxNorm: 943598 2 Puff(s) INH QID 10/21/192018 Inactive Please do not fill early. Please do not auto refill. This refill negates all other refills of this medication Calcium 600-D3 Plus 600 mg calcium-800 unit-50 mg tablet RxNorm: 1 Tablet(s) PO daily take an additonal tablet for itching. 10/21/192018 Inactive This refill negates all other refills of this medication Singulair 10 mg tablet RxNorm: 896280 1 Tablet(s) PO daily 10/21/192018 Inactive This refill negates all other refills of this medication buspirone 7.5 mg tablet RxNorm: 701151 1 Tablet(s) PO BID 10/21/192018 Inactive This refill negates all other refills of this medication hydrochlorothiazide 12.5 mg tablet RxNorm: 806990 1 Tablet(s) PO QAM 10/21/192018 Inactive levothyroxine 50 mcg tablet RxNorm: 373070 1 Tablet(s) PO daily 10/21/192018 Inactive This refill negates all other refills of this medication cetirizine 10 mg tablet RxNorm: 8054267 1 Tablet(s) PO daily 10/21/192018 Inactive This [...] this medication gabapentin 300 mg capsule RxNorm: 426100 1 Capsule(s) PO TID as needed 10/21/192018 Inactive trazodone 50 mg tablet RxNorm: 407402 1 Tablet(s) PO QHS 10/21/19 19 2018 Inactive This refill negates all other refills of this medication diclofenac sodium 75 mg tablet,delayed release RxNorm: 899384 1 Tablet(s) PO BID 10/21/19 19 2018 Inactive This refill negates all other refills of this medication metoprolol succinate ER 50 mg tablet,extended release 24 hr RxNorm: 599725 1 Tablet(s) PO daily 10/21/19 19 2018 Inactive This refill negates all other refills of this medication buspirone 7.5 mg tablet RxNorm: 186730 1 Tablet(s) PO BID 10/12/19 19 2018 Inactive cetirizine 10 mg tablet RxNorm: 0543461 1 Tablet(s) PO daily 09/28/20 18 2018 Inactive Guaiasorb DM 10 mg-100 mg/5 mL oral liquid RxNorm: 512724 10 Milliliter(s) PO As needed every 4 hr 09/24/20 18 2018 Inactive Vicks Vaporub 4.7 %-1.2 %-2.6 % topical ointment RxNorm: 4244677 1 Application TOP TID 09/24/20 18 2018 Inactive levmetamfetamine 50 mg nasal inhaler RxNorm: 1 Unit(s) NASAL Q3-4H 09/24/20 18 2017 Inactive sertraline 50 mg tablet RxNorm: 422133 1 Tablet(s) PO daily 09/09/20 18 2018 Inactive Please note dose trazodone 50 mg tablet RxNorm: 530271 1 Tablet(s) PO QHS 09/06/20 18 2018 Inactive sertraline 50 mg tablet RxNorm: 603383 1 Tablet(s) PO daily 09/06/20 18 2017 Inactive amoxicillin 500 mg tablet RxNorm: 080115 1 Tablet(s) PO Q12H 08/31/20 18 2017 Inactive albuterol sulfate 2.5 mg/3 mL (0.083 %) solution for nebulization RxNorm: 470440 1 Vial INH QID 08/10/20 18 2018 Inactive 60/box. Please do not fill early. Please do not auto refill. Prozac 10 mg capsule RxNorm: 963171 1 Capsule(s) PO daily 08/09/20 18 2017 Inactive buspirone 7.5 mg tablet RxNorm: 972812 1 Tablet(s) PO BID 08/09/20 18 2018 Inactive gabapentin 300 mg capsule RxNorm: 499071 1 Capsule(s) PO TID as needed 08/01/20 18 2018 Inactive hydrochlorothiazide 12.5 mg tablet RxNorm: 884613 1 Tablet(s) PO QAM 08/01/20 18 2018 Inactive ranitidine 150 mg tablet RxNorm: 448255 1 Tablet(s) PO BID 08/01/20 18 2018 Inactive Macrobid 100 mg capsule RxNorm: 698943 1 Capsule(s) PO Q12H 06/21/20 18 2017 Inactive Singulair 10 mg tablet RxNorm: 335470 1 Tablet(s) PO daily 06/14/20 18 2018 Inactive Ventolin HFA 90 mcg/actuation aerosol inhaler RxNorm: 1273678 2 Puff(s) INH QID 06/14/20 18 2018 Inactive Singulair 10 mg tablet RxNorm: 165286 1 Tablet(s) PO daily 06/14/20 18 2017 Inactive buspirone 7.5 mg tablet RxNorm: 513982 1 Tablet(s) PO BID 06/14/20 18 2017 Inactive Prozac 10 mg capsule RxNorm: 845523 1 Capsule(s) PO daily 06/14/20 18 2017 Inactive Neilmed Pediatric Sinus Rinse Refill packet RxNorm: 1 Unit Dose NASAL PRN 05/31/20 18 2021 Inactive diclofenac sodium 75 mg tablet,delayed release RxNorm: 494378 1 Tablet(s) PO BID 05/31/20 18 2017 Inactive lisinopril 2.5 mg tablet RxNorm: 458173 1 Tablet(s) PO daily 05/31/20 18 2017 Inactive metoprolol succinate ER 50 mg tablet,extended release 24 hr RxNorm: 972999 1 Tablet(s) PO daily 05/31/20 18 2017 Inactive levothyroxine 50 mcg tablet RxNorm: 232583 1 Tablet(s) PO daily 05/31/20 18 2017 Inactive TRUEplus Lancets 30 gauge RxNorm: 1 Lancets Miscellaneous QAM 05/31/20 18 2017 Inactive 100/box Ventolin HFA 90 mcg/actuation aerosol inhaler RxNorm: 761342 2 Puff(s) INH QID 05/31/20 18 2017 Inactive Aleve 220 mg capsule RxNorm: 0738408 1 Capsule(s) PO BID 05/31/20 18 2018 Inactive ranitidine 150 mg tablet RxNorm: 412008 1 Tablet(s) PO BID 05/31/20 18 2017 Inactive gabapentin 300 mg capsule RxNorm: 495716 1 Capsule(s) PO TID as needed 05/31/20 18 2017 Inactive atorvastatin 20 mg tablet RxNorm: 376576 1 Tablet(s) PO QHS 05/31/20 18 2017 Inactive True Metrix Glucose Test Strip RxNorm: 1 Test Strips Miscellaneous QAM 05/31/20 18 2017 Inactive 50/container Calcium 600-D3 Plus 600 mg calcium-800 unit-50 mg tablet RxNorm: 1 Tablet(s) PO daily take an additonal tablet for itching. 05/31/20 18 2017 Inactive hydrochlorothiazide 12.5 mg tablet RxNorm: 140858 1 Tablet(s) PO QAM 05/31/20 18 2017 Inactive Flintstones Complete (iron) 18 mg iron chewable tablet RxNorm: 1 Tablet(s) PO daily 05/31/20 18 2017 Inactive True Metrix Glucose Meter RxNorm: miscellaneous 08/17/20 19 2018 Inactive sertraline 50 mg tablet RxNorm: 386829 1 Tablet(s) PO daily 11/28/19 20 2019 Inactive loperamide 2 mg tablet RxNorm: 419388 oral 09/29/20 19 2018 Inactive d-mannose oral powder RxNorm: PO 18 2021 Inactive Medication Administered No Medication Administered data Procedures Procedure Codes Date Urinalysis, dip stick CPT-4: 80668 03/28/2019 Urinalysis, dip stick Leukocytes:/Moderate, Nitrite:/Negative, Urobilinogen:/Normal, Protein:/Negative, Ph:/5.0, Blood:/Negative, Specific [place]:/1.030, Ketone:/5 points, Bilirubin:/Small, Glucose:/10/12CPT-4: 12318Qryxkcv90/26/2019 Vital Signs Date Vital 03/28/2019 Blood Pressure 1: 128/88 Code: 8480-6 BMI: 57.1 Code: 31100-7 Heart Rate 1: 88 bpm Height: 4'11 Code: 8302-2 Respiratory Rate: 16 bpm SpO2: 99% Temperature: 36.3 (C) / 97.4 (F) Weight: 282 lbs 13 oz Code: 13179-1 Reason For Visit Reason For Visit Effective [...] R07.9] Diagnosis: Encounter for preprocedural cardiovascular examination[ICD10: Z01.810]Rasta Sesay [id number] [place] [address] 68502IDC-2: [id number] Plan of Care Planned Activity Notes Codes Status Date Visit Plan: J45.909-493.90 Unspe cified asthma, uncomplicated Diagnosed at [facility] on 03/21/19. No medications Rx'd. Using abuterol inhaler QID. Allergic to methylprednisone POC: request that this new diagnosis evaluated by Pulmonology at initial visit on 04/09/19 R06.81-786.03 Apnea, not elsewhere classified Increase in awake apnea. Discussed could also have a neurological &/or psychiatric etiology, but will start with Pulmonology POC: reschedule to 04/09/19, original 02/08/19- referred to [facility] at [address] [address], p [phone], Z68.43-V85.43 Body mass index (BMI) 50-59.9 , [...] clearance w/ probable stress test for LTL. 03/28/2019Patient Education: Patient Medication YzghoalTnoyalldx64/26/2019 Patient Education: QmguydRlgwbtjlm76/26/2019Care Plan: Cardiology Referral SNOMED-CT : [id number] Hhzjamc1403/28/2019Appointment: Rasta Palafox WPtel: [address] [facility] [id number]: Rasta Palafox WPtel: [address] [facility] [id number]: Rasta Palafox WPtel: [address] [facility] [id number]: Pending Gynecology Referral InformationReferral ProcessedReferral: Pending Pulmonology Referral InformationReferralProcessed Referral: Pending Psychiatry Referral InformationReferralInitiatedReferral: Pending Respiratory Services Referral InformationReferralInitiatedReferral: Pending Ophthalmology Referral InformationReferralInitiatedReferral: [facility] WPtel: [address] [place] USWriter placed a call out to the patient to notify her that it has been recommended that she be seenby 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 Patient agreed to be seen, does not have a provider of choice and no transportationissues. Assembler Crimper faxed referral and clinical notes to [facility] in [place], [place] near the patient's home. Patient to [...] seen and prefers a provider in the [place] or [place] area. Assembler Crimper placed a call out to everyone listed in the area and the only location that was able to accept the patient's insurance was [address] [address] and spoke with Maylin. Maylin asked that the patient's referral, face sheet and visit notes be faxed to . Assembler Crimper faxed over requested documents. Patient appointment confirmation letter generated and mailed to her home address. Patient to call to schedule an appointment.ProcessedReferral: [facility] WPtel: [address] [id number] USPatient notified that it has been advised that she be seen by Neurology. Patient agreed to be seen and prefers to be seen by a provider in the [place], [place] area. Patient denies any concerns with transportation, and prefers to schedule her own appointment. Assembler Crimper placed a call out to [facility] and spoke with Neeraj P: who confirmed that their office is able to acceptnew patients and the patient's insurance. After confirming the providers fax number, chief writer faxed over the patient's referral, and most recent clinical notes to F: . Patient to call to schedule her appointment. Appointment confirmation letter mailed to the patient's home address. CCDA completed.ProcessedReferral: Pending Nephrology Referral InformationReferralProcessedReferral: Pending Podiatry Referral Information ReferralInitiatedReferral: Pending Podiatry Referral InformationReferral ProcessedReferral: Pending Podiatry Referral InformationReferralInitiated Instructions Comment Date . J45.105-415.23 Unspecified asthma, uncomplicated Diagnosed at [facility] on 03/21/19. No medications Rx'd. Using abuterol inhaler QID. Allergic to methylprednisone POC: request that this new diagnosis evaluated by Pulmonology at initial visit on 04/09/19 R06.81-786.03 Apnea, not elsewhere classified Increase in awake apnea. Discussed could also have a neurological &/or psychiatric etiology, but will start with Pulmonology POC: reschedule to 04/09/19, original 02/08/19- referred to [facility] at [address] [place] [address], p [phone], Z68.43-V85.43 Body mass index (BMI) 50-59.9 , [...]
--- OUTSIDE RECORDS SUMMARY | 2019-04-03 20:00 | XMS_ITS | CCD ---
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 Dental Practice Manager Name Role Phone Palomo KING, Anna Primary Care Provider Unav ailable Unavailable Chronic Care Management Unavaila ble Summary Purpose DataExchange Insurance Providers Payer name Policy type / Coverage type Covered green party ID Effective Begin Date Effective End Date SUKI BUTTS MARIA ESTHER [id number] Unknown Unknown Family history Mother Diagnosis Age [...] 05/31/2018 Education level Unknown Some High School 10th05/31/20180165DryyqovsnhWbfuaquKggpetbodp69/29/2018Tobacco historySNOMED CT: 281412087Uhd never smoked or chewed [id number]/31/2018Alcohol historySNOMED CT: 904984304Kgvgh drinks shfaqsn2805/31/2018Has the patient ever used illegal drugs? UnknownHas never used illegal drugs05/31/2018DNR Order/ Advanced Directive UnknownFull Code05/31/2018 Allergies, Adverse Reactions, Alerts Substance Reaction Codes Entered Date Inactivated Date Status *No known food allergies Jnvuwzh4409/06/2018No Inactive DateActiveMethylprednisolonehivesRxNorm: 6902 09/06/2018No Inactive DateActive Problems Condition Codes Effective Dates Condition St atus Apnea, not elsewhere classified ICD-10: R06.81 ICD-9: 786.03001/31/2019ActiveBody mass index (BMI) 50-59.9 , adultICD-10: Z68.43 ICD-9: V85.43005/30/2018ActiveChest pain, unspecifiedICD-10: R07.9 ICD-9: 786.5002ActiveEncounter for preprocedural cardiovascular examinationICD-10: Z01.810 ICD-9: V72.8106ActiveEssential (primary) hypertensionICD-10: I10 ICD-9: 401.9010/03/2018ActiveUnspecified asthma, uncomplicatedICD-10: J45.909 ICD-9: 493.9011ActiveDyspnea, unspecifiedICD-10: R06.00 [...] Start Date Stop Date Status Fill Instructions César Beckett (iron) 18 mg iron chewable tablet RxNorm: 1 Tablet(s) PO daily 04/04/202021 Inactive This refill negates all other refills of this medication True Metrix Glucose Test Strip RxNorm: 1 Test Strips Miscellaneous QAM 02/01/20 19 2018 Inactive 100/container Alcohol Prep Pads RxNorm: 318587 1 Patch TOP QAM 02/01/202018 Inactive TRUEplus Lancets 30 gauge RxNorm: 1 Lancets Miscellaneous QAM 02/01/202018 Inactive 100/box gabapentin 300 mg capsule RxNorm: 164810 1 Capsule(s) PO TID as needed 02/01/202018 Inactive lisinopril 2.5 mg tablet RxNorm: 798449 1 Tablet(s) PO daily 12/28/19 19 2018 Inactive ranitidine 150 mg tablet RxNorm: 094675 1 Tablet(s) PO BID 10/21/192018 Inactive This refill negates all other refills of this medication albuterol sulfate 2.5 mg/3 mL (0.083 %) solution for nebulization RxNorm: 824769 1 Vial INH QID 10/21/192018 Inactive 60/box. This refill negates all other refills of this medication. Please do not fill early. Please do not auto refill. atorvastatin 20 mg tablet RxNorm: 771382 1 Tablet(s) PO QHS 10/21/192018 Inactive This refill negates all other refills of this medication Ventolin HFA 90 mcg/actuation aerosol inhaler RxNorm: 496511 2 Puff(s) INH QID 10/21/192018 Inactive Please do not fill early. Please do not auto refill. This refill negates all other refills of this medication Calcium 600-D3 Plus 600 mg calcium-800 unit-50 mg tablet RxNorm: 1 Tablet(s) PO daily take an additonal tablet for itching. 10/21/19 19 2018 Inactive This refill negates all other refills of this medication Singulair 10 mg tablet RxNorm: 874919 1 Tablet(s) PO daily 10/21/192018 Inactive This refill negates all other refills of this medication buspirone 7.5 mg tablet RxNorm: 345562 1 Tablet(s) PO BID 10/21/192018 Inactive This refill negates all other refills of this medication hydrochlorothiazide 12.5 mg tablet RxNorm: 409574 1 Tablet(s) PO QAM 10/21/19 19 2018 Inactive levothyroxine 50 mcg tablet RxNorm: 216789 1 Tablet(s) PO daily 10/21/192018 Inactive This refill negates all other refills of this medication cetirizine 10 mg tablet RxNorm: 4241820 1 Tablet(s) PO daily 10/21/192018 Inactive This refill negates all other refills of this medication. Please do not auto refill levmetamfetamine 50 mg nasal inhaler RxNorm: 1 Unit(s) NASAL Q3-4H Do not use more than every 3 hours or 8 times/24hours 10/21/192018 Inactive Please do not auto refill. This refill negates all other refills of this medication gabapentin 300 mg capsule RxNorm: 416285 1 Capsule(s) PO TID as needed 10/21/192018 Inactive trazodone 50 mg tablet RxNorm: 660309 1 Tablet(s) PO QHS 10/21/19 19 2018 Inactive This refill negates all other refills of this medication diclofenac sodium 75 mg tablet,delayed release RxNorm: 039559 1 Tablet(s) PO BID 10/21/19 19 2018 Inactive This refill negates all other refills of this medication metoprolol succinate ER 50 mg tablet,extended release 24 hr RxNorm: 083255 1 Tablet(s) PO daily 10/21/19 19 2018 Inactive This refill negates all other refills of this medication Flintstones Complete (iron) 18 mg iron chewable tablet RxNorm: 1 Tablet(s) PO daily 10/21/19 19 2018 Inactive This refill negates all other refills of this medication buspirone 7.5 mg tablet RxNorm: 410409 1 Tablet(s) PO BID 10/12/19 19 2018 Inactive cetirizine 10 mg tablet RxNorm: 3461207 1 Tablet(s) PO daily 09/28/20 18 2018 Inactive Guaiasorb DM 10 mg-100 mg/5 mL oral liquid RxNorm: 021729 10 Milliliter(s) PO As needed every 4 hr 09/24/20 18 2018 Inactive Vicks Vaporub 4.7 %-1.2 %-2.6 % topical ointment RxNorm: 8424758 1 Application TOP TID 09/24/20 18 2018 Inactive levmetamfetamine 50 mg nasal inhaler RxNorm: 1 Unit(s) NASAL Q3-4H 09/24/20 18 2017 Inactive sertraline 50 mg tablet RxNorm: 025836 1 Tablet(s) PO daily 09/09/20 18 2018 Inactive Please note dose trazodone 50 mg tablet RxNorm: 028788 1 Tablet(s) PO QHS 09/06/20 18 2018 Inactive sertraline 50 mg tablet RxNorm: 916689 1 Tablet(s) PO daily 09/06/20 18 2017 Inactive amoxicillin 500 mg tablet RxNorm: 831909 1 Tablet(s) PO Q12H 08/31/20 18 2017 Inactive albuterol sulfate 2.5 mg/3 mL (0.083 %) solution for nebulization RxNorm: 860631 1 Vial INH QID 08/10/20 18 2018 Inactive 60/box. Please do not fill early. Please do not auto refill. Prozac 10 mg capsule RxNorm: 971193 1 Capsule(s) PO daily 08/09/20 18 2017 Inactive buspirone 7.5 mg tablet RxNorm: 696418 1 Tablet(s) PO BID 08/09/20 18 2018 Inactive gabapentin 300 mg capsule RxNorm: 053738 1 Capsule(s) PO TID as needed 08/01/20 18 2018 Inactive hydrochlorothiazide 12.5 mg tablet RxNorm: 294545 1 Tablet(s) PO QAM 08/01/20 18 2018 Inactive ranitidine 150 mg tablet RxNorm: 261050 1 Tablet(s) PO BID 08/01/20 18 2018 Inactive Macrobid 100 mg capsule RxNorm: 577949 1 Capsule(s) PO Q12H 06/21/20 18 2017 Inactive Singulair 10 mg tablet RxNorm: 654274 1 Tablet(s) PO daily 06/14/20 18 2018 Inactive Ventolin HFA 90 mcg/actuation aerosol inhaler RxNorm: 0977995 2 Puff(s) INH QID 06/14/20 18 2018 Inactive Singulair 10 mg tablet RxNorm: 530913 1 Tablet(s) PO daily 06/14/20 18 2017 Inactive buspirone 7.5 mg tablet RxNorm: 335455 1 Tablet(s) PO BID 06/14/20 18 2017 Inactive Prozac 10 mg capsule RxNorm: 291514 1 Capsule(s) PO daily 06/14/20 18 2017 Inactive Neilmed Pediatric Sinus Rinse Refill packet RxNorm: 1 Unit Dose NASAL PRN 05/31/20 18 2021 Inactive diclofenac sodium 75 mg tablet,delayed release RxNorm: 579123 1 Tablet(s) PO BID 05/31/20 18 2017 Inactive lisinopril 2.5 mg tablet RxNorm: 791064 1 Tablet(s) PO daily 05/31/20 18 2017 Inactive metoprolol succinate ER 50 mg tablet,extended release 24 hr RxNorm: 178554 1 Tablet(s) PO daily 05/31/20 18 2017 Inactive levothyroxine 50 mcg tablet RxNorm: 994929 1 Tablet(s) PO daily 05/31/20 18 2017 Inactive TRUEplus Lancets 30 gauge RxNorm: 1 Lancets Miscellaneous QAM 05/31/20 18 2017 Inactive 100/box Ventolin HFA 90 mcg/actuation aerosol inhaler RxNorm: 591644 2 Puff(s) INH QID 05/31/20 18 2017 Inactive Aleve 220 mg capsule RxNorm: 8982859 1 Capsule(s) PO BID 05/31/20 18 2018 Inactive ranitidine 150 mg tablet RxNorm: 743607 1 Tablet(s) PO BID 05/31/20 18 2017 Inactive gabapentin 300 mg capsule RxNorm: 819547 1 Capsule(s) PO TID as needed 05/31/20 18 2017 Inactive atorvastatin 20 mg tablet RxNorm: 708843 1 Tablet(s) PO QHS 05/31/20 18 2017 Inactive True Metrix Glucose Test Strip RxNorm: 1 Test Strips Miscellaneous QAM 05/31/20 18 2017 Inactive 50/container Calcium 600-D3 Plus 600 mg calcium-800 unit-50 mg tablet RxNorm: 1 Tablet(s) PO daily take an additonal tablet for itching. 05/31/20 18 2017 Inactive hydrochlorothiazide 12.5 mg tablet RxNorm: 627539 1 Tablet(s) PO QAM 05/31/20 18 2017 Inactive Flintstones Complete (iron) 18 mg iron chewable tablet RxNorm: 1 Tablet(s) PO daily 05/31/20 18 2017 Inactive True Metrix Glucose Meter RxNorm: miscellaneous 08/17/20 19 2018 Inactive sertraline 50 mg tablet RxNorm: 133065 1 Tablet(s) PO daily 11/28/19 20 2019 Inactive loperamide 2 mg tablet RxNorm: 345390 oral 09/29/20 19 2018 Inactive d-mannose oral powder RxNorm: PO 18 2021 Inactive Medication Administered No Medication Administered data Procedures Procedure Codes Date Urinalysis, dip stick CPT-4: 14793 03/28/2019 Reason For Visit No Reason For Visit data Plan of Care Planned Activity Notes Codes Status Date Referral: Pending Gynecology Referral Informatio n Referral ProcessedReferral: Pending Pulmonology Referral InformationReferralProcessed Referral: Pending Psychiatry Referral InformationReferralInitiatedReferral: Pending Respiratory Services Referral InformationReferralInitiatedReferral: Pending Ophthalmology Referral InformationReferralInitiatedReferral: [facility] WPtel: [address] [id number] USWriter placed a call out to the patient to notify her that it has been recommended that she be seenby 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 Patient agreed to be seen, does not have a provider of choice and no transportationissues. Human Resources Representative faxed referral and clinical notes to [facility] in [place], [place] near the patient's home. Patient to [...] seen and prefers a provider in the [place] or [place] area. Human Resources Representative placed a call out to everyone listed in the area and the only location that was able to accept the patient's insurance was [address] [address] and spoke with Maylin. Maylin asked that the patient's referral, face sheet and visit notes be faxed to . Human Resources Representative faxed over requested documents. Patient appointment confirmation letter generated and mailed to her home address. Patient to call to schedule an appointment.ProcessedReferral: [facility] WPtel: [address] [facility] [address] [facility] [address] [id number] USPatient notified that it has been advised that she be seen by Neurology. Patient agreed to be seen and prefers to be seen by a provider in the [place], [place] area. Patient denies any concerns with transportation, and prefers to schedule her own appointment. Human Resources Representative placed a call out to [facility] and spoke with Neeraj P: who confirmed that their office is able to acceptnew patients and the patient's insurance. After confirming the providers fax number, property underwriter faxed over the patient's referral, and [...]
--- OUTSIDE RECORDS SUMMARY | 2019-04-24 20:00 | XMS_ITS | CCD ---
Author Name Dr Lacey Oropeza DO Address [address] [place] [address] Phone Organization [email or web address] Phone Care Team Providers Care Guest Room Attendant Name Role Phone Palomo COMBINATION WELDER, Anna Primary Care Provider Unav ailable Unavailable Chronic Care Management Unavaila ble Summary Purpose DataExchange Insurance Providers Payer name Policy type / Coverage type Covered libertarian ID Effective Begin Date Effective End Date [facility] [id number] Unknown Unknown Family history Mother Diagnosis Age [...] 05/31/2018 Education level Unknown Some High School 10th05/31/20181081UgeqxlvmylMkvmcjdYmwablmqac11/29/2018Tobacco historySNOMED CT: 774583809Vjl never smoked or chewed heddlbw0105/31/2018Alcohol historySNOMED CT: 918715629Gorpp drinks qlaphek9805/31/2018Has the patient ever used illegal drugs? UnknownHas never used illegal drugs05/31/2018DNR Order/ Advanced Directive UnknownFull Code05/31/2018 Allergies, Adverse Reactions, Alerts Substance Reaction Codes Entered Date Inactivated Date Status *No known food allergies Fnuvkkv4009/06/2018No Inactive DateActiveMethylprednisolonehivesRxNorm: 6902 09/06/2018No Inactive DateActive Problems Condition Codes Effective Dates Condition St atus Encounter for immunization ICD-10: Z23 ICD-9: V03.907ActiveEncounter for screening for malignant neoplasm of cervixICD-10: Z12.4 ICD-9: V76.207/ActiveHypertensive heart disease with heart failureICD-10: I11.0 ICD-9: 402.9107ActiveOther flight service specialist (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ICD-10: Z79.899 ICD-9: V58.6907/ActiveType 2 diabetes mellitus without complicationsICD- 10: E11.9 ICD-9: 250.0001ActiveUnspecified asthma, uncomplicatedICD-10: J45.909 ICD-9: 493.9011ActiveApnea, not elsewhere classifiedICD-10: R06.81 ICD-9: 786.0305ActiveBody mass index (BMI) 50-59.9 , adultICD-10: Z68.43 ICD-9: V85.4308ActiveChest pain, unspecifiedICD-10: R07.9 ICD-9: 786.5002ActiveEncounter for preprocedural cardiovascular examinationICD-10: Z01.810 ICD-9: V72.8106ActiveEssential (primary) hypertensionICD-10: I10 ICD-9: 401.901ActiveDyspnea, unspecifiedICD-10: R06.00 ICD-9: 786.0905ActivePost-traumatic stress disorder, unspecifiedICD-10: F43.10 ICD-9: 309.8112ActiveWheezingICD-10: R06.2 ICD-9: 786.0711ActiveAbnormal electrocardiogram [ECG] [EKG]ICD-10: R94.31 ICD-9: 794.3108ActiveEdema, unspecifiedICD-10: R60.9 ICD-9: 782.310ActiveHypothyroidism, unspecifiedICD-10: E03.9 ICD-9: 244.912ActiveAdjustment disorder with mixed [...] chewable tablet RxNorm: 1 Tablet(s) PO daily 04/04/20 19 2021 Inactive This refill negates all other refills of this medication True Metrix Glucose Test Strip RxNorm: 1 Test Strips Miscellaneous [facility] 02/01/20 19 2018 Inactive 100/container Alcohol Prep Pads RxNorm: 459909 1 Patch TOP [facility] 02/01/202018 Inactive TRUEplus Lancets 30 gauge RxNorm: 1 Lancets Miscellaneous [facility] 02/01/20 19 2018 Inactive 100/box gabapentin 300 mg capsule RxNorm: 769813 1 Capsule(s) PO TID as needed 02/01/20 19 2018 Inactive lisinopril 2.5 mg tablet RxNorm: 231413 1 Tablet(s) PO daily 12/28/19 19 2018 Inactive buspirone 7.5 mg tablet RxNorm: 531981 1 Tablet(s) PO BID 10/21/19 19 2018 Inactive This refill negates all other refills of this medication ranitidine 150 mg tablet RxNorm: 463035 1 Tablet(s) PO BID 10/21/19 19 2018 Inactive This refill negates all other refills of this medication albuterol sulfate 2.5 mg/3 mL (0.083 %) solution for nebulization RxNorm: 052259 1 Vial INH QID 10/21/19 19 2018 [...] this medication gabapentin 300 mg capsule RxNorm: 874645 1 Capsule(s) PO TID as needed 10/21/19 19 2018 Inactive atorvastatin 20 mg tablet RxNorm: 120994 1 Tablet(s) PO QHS 10/21/192018 Inactive This refill negates all other refills of this medication trazodone 50 mg tablet RxNorm: 254126 1 Tablet(s) PO QHS 10/21/192018 Inactive This refill negates all other refills of this medication Ventolin HFA 90 mcg/actuation aerosol inhaler RxNorm: 421166 2 Puff(s) INH QID 10/21/192018 Inactive Please do not fill early. Please do not auto refill. This refill negates all other refills of this medication Calcium 600-D3 Plus 600 mg calcium-800 unit-50 mg tablet RxNorm: 1 Tablet(s) PO daily take an additonal tablet for itching. 10/21/192018 Inactive This refill negates all other refills of this medication Singulair 10 mg tablet RxNorm: 874899 1 Tablet(s) PO daily 10/21/192018 Inactive This refill negates all other refills of this medication diclofenac sodium 75 mg tablet,delayed release RxNorm: 756058 1 Tablet(s) PO BID 10/21/19 19 2018 Inactive This refill negates all other refills of this medication hydrochlorothiazide 12.5 mg tablet RxNorm: 684464 1 Tablet(s) PO QAM 10/21/19 19 2018 Inactive metoprolol succinate ER 50 mg tablet,extended release 24 hr RxNorm: 746916 1 Tablet(s) PO daily 10/21/19 19 2018 Inactive This refill negates all other refills of this medication levothyroxine 50 mcg tablet RxNorm: 760276 1 Tablet(s) PO daily 10/21/19 19 2018 Inactive This refill negates all other refills of this medication cetirizine 10 mg tablet RxNorm: 4763188 1 Tablet(s) PO daily 10/21/192018 Inactive This refill negates all other refills of this medication. Please do not auto refill Flintstones Complete (iron) 18 mg iron chewable tablet RxNorm: 1 Tablet(s) PO daily 10/21/192018 Inactive This refill negates all other refills of this medication buspirone 7.5 mg tablet RxNorm: 671506 1 Tablet(s) PO BID 10/12/192018 Inactive cetirizine 10 mg tablet RxNorm: 7853911 1 Tablet(s) PO daily 09/28/20 18 2018 Inactive Guaiasorb DM 10 mg-100 mg/5 mL oral liquid RxNorm: 290373 10 Milliliter(s) PO As needed every 4 hr 09/24/202018 Inactive Vicks Vaporub 4.7 %-1.2 %-2.6 % topical ointment RxNorm: 2818551 1 Application TOP TID 09/24/20 18 2018 Inactive levmetamfetamine 50 mg nasal inhaler RxNorm: 1 Unit(s) NASAL Q3-4H 09/24/20 18 2017 Inactive sertraline 50 mg tablet RxNorm: 924714 1 Tablet(s) PO daily 09/09/20 18 2018 Inactive Please note dose trazodone 50 mg tablet RxNorm: 122317 1 Tablet(s) PO QHS 09/06/20 18 2018 Inactive sertraline 50 mg tablet RxNorm: 206969 1 Tablet(s) PO daily 09/06/20 18 2017 Inactive amoxicillin 500 mg tablet RxNorm: 729521 1 Tablet(s) PO Q12H 08/31/20 18 2017 Inactive albuterol sulfate 2.5 mg/3 mL (0.083 %) solution for nebulization RxNorm: 172844 1 Vial INH QID 08/10/20 18 2018 Inactive 60/box. Please do not fill early. Please do not auto refill. Prozac 10 mg capsule RxNorm: 158696 1 Capsule(s) PO daily 08/09/20 18 2017 Inactive buspirone 7.5 mg tablet RxNorm: 331459 1 Tablet(s) PO BID 08/09/20 18 2018 Inactive gabapentin 300 mg capsule RxNorm: 365241 1 Capsule(s) PO TID as needed 08/01/20 18 2018 Inactive hydrochlorothiazide 12.5 mg tablet RxNorm: 419584 1 Tablet(s) PO QAM 08/01/20 18 2018 Inactive ranitidine 150 mg tablet RxNorm: 812952 1 Tablet(s) PO BID 08/01/20 18 2018 Inactive Macrobid 100 mg capsule RxNorm: 028234 1 Capsule(s) PO Q12H 06/21/20 18 2017 Inactive Singulair 10 mg tablet RxNorm: 563599 1 Tablet(s) PO daily 06/14/20 18 2018 Inactive Ventolin HFA 90 mcg/actuation aerosol inhaler RxNorm: 6864202 2 Puff(s) INH QID 06/14/20 18 2018 Inactive Singulair 10 mg tablet RxNorm: 832461 1 Tablet(s) PO daily 06/14/20 18 2017 Inactive buspirone 7.5 mg tablet RxNorm: 485169 1 Tablet(s) PO BID 06/14/20 18 2017 Inactive Prozac 10 mg capsule RxNorm: 357374 1 Capsule(s) PO daily 06/14/20 18 2017 Inactive NeAriadne Diagnosticsmed Pediatric Sinus Rinse Refill packet RxNorm: 1 Unit Dose NASAL PRN 05/31/20 18 2021 Inactive diclofenac sodium 75 mg tablet,delayed release RxNorm: 194314 1 Tablet(s) PO BID 05/31/20 18 2017 Inactive lisinopril 2.5 mg tablet RxNorm: 106835 1 Tablet(s) PO daily 05/31/20 18 2017 Inactive metoprolol succinate ER 50 mg tablet,extended release 24 hr RxNorm: 913456 1 Tablet(s) PO daily 05/31/20 18 2017 Inactive levothyroxine 50 mcg tablet RxNorm: 045735 1 Tablet(s) PO daily 05/31/20 18 2017 Inactive TRUEplus Lancets 30 gauge RxNorm: 1 Lancets Miscellaneous QAM 05/31/20 18 2017 Inactive 100/box Ventolin HFA 90 mcg/actuation aerosol inhaler RxNorm: 955767 2 Puff(s) INH QID 05/31/20 18 2017 Inactive Aleve 220 mg capsule RxNorm: 4770186 1 Capsule(s) PO BID 05/31/20 18 2018 Inactive ranitidine 150 mg tablet RxNorm: 046086 1 Tablet(s) PO BID 05/31/20 18 2017 Inactive gabapentin 300 mg capsule RxNorm: 084182 1 Capsule(s) PO TID as needed 05/31/20 18 2017 Inactive atorvastatin 20 mg tablet RxNorm: 743317 1 Tablet(s) PO QHS 05/31/20 18 2017 Inactive True Metrix Glucose Test Strip RxNorm: 1 Test Strips Miscellaneous QAM 05/31/20 18 2017 Inactive 50/container Calcium 600-D3 Plus 600 mg calcium-800 unit-50 mg tablet RxNorm: 1 Tablet(s) PO daily take an additonal tablet for itching. 05/31/20 18 2017 Inactive hydrochlorothiazide 12.5 mg tablet RxNorm: 518775 1 Tablet(s) PO QAM 05/31/20 18 2017 Inactive Flintstones Complete (iron) 18 mg iron chewable tablet RxNorm: 1 Tablet(s) PO daily 05/31/20 18 2017 Inactive True Metrix Glucose Meter RxNorm: miscellaneous 08/17/20 19 2018 Inactive sertraline 50 mg tablet RxNorm: 530985 1 Tablet(s) PO daily 11/28/19 20 2019 Inactive loperamide 2 mg tablet RxNorm: 463493 oral 09/29/20 19 2018 Inactive d-mannose oral powder RxNorm: PO 18 2021 Inactive Symbicort 160 mcg-4.5 mcg/actuation HFA aerosol inhaler RxNorm: 2616421 2 Puff(s) INH BID 08/17/202018 Inactive Medication Administered No Medication Administered data Procedures Procedure Codes Date AHA/REBECCA Classification Assessment CPT-4: DAHA 04/25/2019 Controlled Substance Report CPT-4: CTRSU 04/03 TD VACCINE >7 y/o IM CPT-4: 95816 04/25/2019 AHA/[facility] Classification Asse ssment Assign to:/Candida - Lab Template, Assign to:, AHA/A: At risk, but without structural heart disease., NYHA/I: AsymptomaticCPT-4: ZOSETvgmrhc59/24/2019 Immunization AdministrationCPT-4: 8629560Controlled Substance Report Assign to:, Controlled Substance Report Range:/Past 24 months, Provider Attestation:/I attest that I reviewed the state PDMP report and find no clinical issues., Formatting Model/CDA Sections/CCDACPT-4: JRTHPIkqzhoh06/24/2019 Urinalysis, dip stickCPT-4: 1535901Gynecology ReferralSNOMED CT: 402843299 CPT-4: C10Imuvddy Vital Signs Date Vital 04/25/2019 Blood Pressure 1: 140/98 Code: 8480-6 BMI: 55.3 Code: 85036-0 Heart Rate 1: 100 bpm Height: 4'11 Code: 8302-2 Respiratory Rate: 20 bpm SpO2: 98% Temperature: 36.3 (C) / 97.3 (F) Weight: 274 lbs Code: 39853-4 Reason For Visit Reason For Visit Effective Dates Notes diabetes mellitus 04/25/2019 hypertension 04/25/2019 asthma disease 04/25/2019 Encounters Encounter Performer Location Location Address Codes Magdi e HOME VISIT EST PATIENT Diagnosis: Hypertensive heart disease with heart failure[ICD10: I11.0] Diagnosis: Unspecified asthma, uncomplicated[ICD10: J45.909] Diagnosis: Type 2 diabetes mellitus without complications[ICD10: E11.9] Diagnosis: Encounter for immunization[ICD10: Z23] Diagnosis: Encounter for screening for malignant neoplasm of cervix[ICD10: Z12.4]Charlene Rivera [id number] [address] [address]AOZ-4: [id number] Plan of Care Planned Activity Notes Codes Status Date Visit Plan: I11.0-402.91 Hyperte nsive heart disease with heart failure CHF on protocol but I don't see any evidence of prior CHF dx in chart, will add since presumably VPA gets these dx from somewhere legitimate If real, would suggest cardiac echo Will get the remainder of items on protocol - AHA/REBECCA Classification, CXR, NTProBNP, overnight pulse ox and prealbumin Seeing cardiology soon and will ask for those records to better understand her disease, if any BP could be better controlled, but will let this go for today J45.909-493.90 Unspecified asthma, uncomplicated CXR, Ventolin rescue inhaler, Yon Has a docking pilot that she is seeing tomorrow Using rescue inhaler nightly, reports nighttime awakening, snoring, daytime sleepiness - suspect MUKESH and patient tells me she has a sleep study scheduled. Will need those records as well. Talked aobut decreased use of rescue meds E11.9-250.00 Type 2 diabetes mellitus without complications Appears to be diet-controlled, reviewed patient's medications and don't see DM meds Last A1c 5.8% Says she gets her DM eye exam and last time would have been in Nov 2018, have asked for records Would like a referral for podiatry, have entered. Also says she used to see nephrology about a left kidney problem but needs a new one in [place], have asked for that referral, too. Z23-V03.9 Encounter for immunization PPSV23 and Td offered today, says she had PPSV23 already, chart updated Td given today Z12.4-V76.2 Encounter for screening for malignant neoplasm of cervix Offered Marketing Manager referral for cervical CA screening - and referred today Z79.899-V58.69 Other flight service specialist (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 PDMP reviewed last fill on 03/01/19 gabapentin 300 mg #90 Okay for refill today 04/25/2019Patient Education: Patient Medication YqhcdwbBpbkydlel48/24/2019 Patient Education: JrzexnCahyrudvc79/24/2019Patient Education: Hypertension Bvhqakjay51/24/2019Patient Education: YeesomiOqdvsamen90/24/2019Patient Education: OvldyinhGijfhjhos93/24/2019Care Plan: Overnight Pulse oxOrdered 04/25/2019Appointment: Rasta Palafox WPtel: [address] [facility] [id number]: Rasta Palafox WPtel: [address] [facility] [id number]: Rasta Palafox WPtel: [address] [facility] [id number]: Rasta Palafox WPtel: [address] [facility] [id number]: Pending Gynecology Referral InformationReferral ProcessedReferral: Pending Pulmonology Referral InformationReferralProcessed Referral: Pending Psychiatry Referral InformationReferralInitiatedReferral: Pending Respiratory Services Referral InformationReferralInitiatedReferral: Pending Ophthalmology Referral InformationReferralInitiatedReferral: [facility] WPtel: [address] USWriter placed a call out to the patient to notify her that it has been recommended that she be seenby 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 Patient agreed to be seen, does not have a provider of choice and no transportationissues. Key Punch Operator faxed referral and clinical notes to [facility] in [place], [place] near the patient's home. Patient to [...] seen and prefers a provider in the [place] or [place] area. Key Punch Operator placed a call out to everyone listed in the area and the only location that was able to accept the patient's insurance was [address] [address] and spoke with Maylin. Maylin asked that the patient's referral, face sheet and visit notes be faxed to . Key Punch Operator faxed over requested documents. Patient appointment confirmation letter generated and mailed to her home address. Patient to call to schedule an appointment.ProcessedReferral: [facility] WPtel: [address] [place] [address] [place], [place] [id number] USPatient notified that it has been advised that she be seen by Neurology. Patient agreed to be seen and prefers to be seen by a provider in the [place], [place] area. Patient denies any concerns with transportation, and prefers to schedule her own appointment. Key Punch Operator placed a call out to [facility] and spoke with Neeraj P: who confirmed that their office is able to acceptnew patients and the patient's insurance. After confirming the providers fax number, grant writer faxed over the patient's referral, and most recent clinical notes to F: . Patient to call to schedule her appointment. Appointment confirmation letter mailed to the patient's home address. CCDA completed.ProcessedReferral: Pending Nephrology Referral InformationReferralProcessedReferral: Pending Podiatry Referral Information ReferralInitiatedReferral: Pending Podiatry Referral InformationReferral ProcessedReferral: Pending Podiatry Referral InformationReferralInitiated Instructions Comment Date . I11.0-402.91 Hypertensive heart disease with heart failure CHF on protocol but I don't see any evidence of prior CHF dx in chart, will add since presumably VPA gets these dx from somewhere legitimate If real, would suggest cardiac echo Will get the remainder of items on protocol - AHA/REBECCA Classification, CXR, NTProBNP, overnight pulse ox and prealbumin Seeing cardiology soon and will ask for those records to better understand her disease, if any BP could be better controlled, but will let this go for today J45.909-493.90 Unspecified asthma, uncomplicated CXR, Ventolin rescue inhaler, Yon Has a docking pilot that she is seeing tomorrow Using rescue inhaler nightly, reports nighttime awakening, snoring, daytime sleepiness - suspect MUKESH and patient tells me she has a sleep study scheduled. Will need those records as well. Talked aobut decreased use of rescue meds E11.9-250.00 Type 2 diabetes mellitus without complications Appears to be diet-controlled, reviewed patient's medications and don't see DM meds Last A1c 5.8% Says she gets her DM eye exam and last time would have been in Nov 2018, have asked for records Would like a referral for podiatry, have entered. Also says she used to see nephrology about a left kidney problem but needs a new one in [place], have asked for that referral, too. Z23-V03.9 Encounter for immunization PPSV23 and Td offered today, says she had PPSV23 already, chart updated Td given today Z12.4-V76.2 Encounter for screening for malignant neoplasm of cervix Offered Marketing Manager referral for cervical CA screening - and referred today Z79.899-V58.69 Other [facility] (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 PDMP reviewed last fill on 03/01/19 gabapentin 300 mg #90 Okay for refill today04/25/2019 Medical Equipment No Medical Equipment data Advance Directives No Advance Directive data
--- OUTSIDE RECORDS SUMMARY | 2019-04-24 20:00 | XMS_ITS | CCD ---
Author Name Dr Lacey Oropeza DO Address [address] [facility] [address] [place] [address] Phone Organization [facility] Phone Care Team Providers Care Cattery Operator Name Role Phone Palomo CLEARING HAND, Anna Primary Care Provider Unav ailable Unavailable Chronic Care Management Unavaila ble Summary Purpose DataExchange Insurance Providers Payer name Policy type / Coverage type Covered republican ID Effective Begin Date Effective End Date SUKI BUTTS [facility] [id number] Unknown Unknown Family history Mother Diagnosis Age [...] 05/31/2018 Education level Unknown Some High School 10th05/31/20181260XwaijwidmkEjgwfbuOxrchxlpoi83/29/2018Tobacco historySNOMED CT: 098466596Bbk never smoked or chewed eyqacld7605/31/2018Alcohol historySNOMED CT: 877659646Lvjxj drinks mnqgzaa4705/31/2018Has the patient ever used illegal drugs? UnknownHas never used illegal drugs05/31/2018DNR Order/ Advanced Directive UnknownFull Code05/31/2018 Allergies, Adverse Reactions, Alerts Substance Reaction Codes Entered Date Inactivated Date Status *No known food allergies Pzawexo2309/06/2018No Inactive DateActiveMethylprednisolonehivesRxNorm: 6902 09/06/2018No Inactive DateActive Problems Condition Codes Effective Dates Condition St atus Encounter for immunization ICD-10: Z23 ICD-9: V03.907ActiveEncounter for screening for malignant neoplasm of cervixICD-10: Z12.4 ICD-9: V76.207/ActiveHypertensive heart disease with heart failureICD-10: I11.0 ICD-9: 402.9107ActiveOther extermination inspector (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ICD-10: Z79.899 ICD-9: V58.6907/ActiveType 2 [...] Test Strip RxNorm: 1 Test Strips Miscellaneous [facility] 02/01/20 19 2018 Inactive 100/container Alcohol Prep Pads RxNorm: 302766 1 Patch TOP [facility] 02/01/202018 Inactive TRUEplus Lancets 30 gauge RxNorm: 1 Lancets Miscellaneous [facility] 02/01/20 19 2018 Inactive 100/box gabapentin 300 mg capsule RxNorm: 007311 1 Capsule(s) PO TID as needed 02/01/20 19 2018 Inactive lisinopril 2.5 mg tablet RxNorm: 012905 1 Tablet(s) PO daily 12/28/19 19 2018 Inactive buspirone 7.5 mg tablet RxNorm: 216604 1 Tablet(s) PO BID 10/21/19 19 2018 Inactive This refill negates all other refills of this medication ranitidine 150 mg tablet RxNorm: 083085 1 Tablet(s) PO BID 10/21/19 19 2018 Inactive This refill negates all other refills of this medication albuterol sulfate 2.5 mg/3 mL (0.083 %) solution for nebulization RxNorm: 194935 1 Vial INH QID 10/21/19 19 2018 [...] this medication gabapentin 300 mg capsule RxNorm: 382159 1 Capsule(s) PO TID as needed 10/21/19 19 2018 Inactive atorvastatin 20 mg tablet RxNorm: 406385 1 Tablet(s) PO QHS 10/21/192018 Inactive This refill negates all other refills of this medication trazodone 50 mg tablet RxNorm: 402628 1 Tablet(s) PO QHS 10/21/192018 Inactive This refill negates all other refills of this medication Ventolin HFA 90 mcg/actuation aerosol inhaler RxNorm: 208107 2 Puff(s) INH QID 10/21/192018 Inactive Please do not fill early. Please do not auto refill. This refill negates all other refills of this medication Calcium 600-D3 Plus 600 mg calcium-800 unit-50 mg tablet RxNorm: 1 Tablet(s) PO daily take an additonal tablet for itching. 10/21/192018 Inactive This refill negates all other refills of this medication Singulair 10 mg tablet RxNorm: 858078 1 Tablet(s) PO daily 10/21/192018 Inactive This refill negates all other refills of this medication diclofenac sodium 75 mg tablet,delayed release RxNorm: 714758 1 Tablet(s) PO BID 10/21/19 19 2018 Inactive This refill negates all other refills of this medication hydrochlorothiazide 12.5 mg tablet RxNorm: 994726 1 Tablet(s) PO QAM 10/21/19 19 2018 Inactive metoprolol succinate ER 50 mg tablet,extended release 24 hr RxNorm: 698413 1 Tablet(s) PO daily 10/21/19 19 2018 Inactive This refill negates all other refills of this medication levothyroxine 50 mcg tablet RxNorm: 197228 1 Tablet(s) PO daily 10/21/19 19 2018 Inactive This refill negates all other refills of this medication cetirizine 10 mg tablet RxNorm: 3470687 1 Tablet(s) PO daily 10/21/192018 Inactive This refill negates all other refills of this medication. Please do not auto refill Flintstones Complete (iron) 18 mg iron chewable tablet RxNorm: 1 Tablet(s) PO daily 10/21/192018 Inactive This refill negates all other refills of this medication buspirone 7.5 mg tablet RxNorm: 292676 1 Tablet(s) PO BID 10/12/192018 Inactive cetirizine 10 mg tablet RxNorm: 8957640 1 Tablet(s) PO daily 09/28/20 18 2018 Inactive Guaiasorb DM 10 mg-100 mg/5 mL oral liquid RxNorm: 217126 10 Milliliter(s) PO As needed every 4 hr 09/24/202018 Inactive Vicks Vaporub 4.7 %-1.2 %-2.6 % topical ointment RxNorm: 0792099 1 Application TOP TID 09/24/20 18 2018 Inactive levmetamfetamine 50 mg nasal inhaler RxNorm: 1 Unit(s) NASAL Q3-4H 09/24/20 18 2017 Inactive sertraline 50 mg tablet RxNorm: 811669 1 Tablet(s) PO daily 09/09/20 18 2018 Inactive Please note dose trazodone 50 mg tablet RxNorm: 417935 1 Tablet(s) PO QHS 09/06/20 18 2018 Inactive sertraline 50 mg tablet RxNorm: 184047 1 Tablet(s) PO daily 09/06/20 18 2017 Inactive amoxicillin 500 mg tablet RxNorm: 586016 1 Tablet(s) PO Q12H 08/31/20 18 2017 Inactive albuterol sulfate 2.5 mg/3 mL (0.083 %) solution for nebulization RxNorm: 556968 1 Vial INH QID 08/10/20 18 2018 Inactive 60/box. Please do not fill early. Please do not auto refill. Prozac 10 mg capsule RxNorm: 345232 1 Capsule(s) PO daily 08/09/20 18 2017 Inactive buspirone 7.5 mg tablet RxNorm: 117152 1 Tablet(s) PO BID 08/09/20 18 2018 Inactive gabapentin 300 mg capsule RxNorm: 843426 1 Capsule(s) PO TID as needed 08/01/20 18 2018 Inactive hydrochlorothiazide 12.5 mg tablet RxNorm: 963286 1 Tablet(s) PO QAM 08/01/20 18 2018 Inactive ranitidine 150 mg tablet RxNorm: 580709 1 Tablet(s) PO BID 08/01/20 18 2018 Inactive Macrobid 100 mg capsule RxNorm: 062131 1 Capsule(s) PO Q12H 06/21/20 18 2017 Inactive Singulair 10 mg tablet RxNorm: 866463 1 Tablet(s) PO daily 06/14/20 18 2018 Inactive Ventolin HFA 90 mcg/actuation aerosol inhaler RxNorm: 8549626 2 Puff(s) INH QID 06/14/20 18 2018 Inactive Singulair 10 mg tablet RxNorm: 930061 1 Tablet(s) PO daily 06/14/20 18 2017 Inactive buspirone 7.5 mg tablet RxNorm: 085675 1 Tablet(s) PO BID 06/14/20 18 2017 Inactive Prozac 10 mg capsule RxNorm: 271164 1 Capsule(s) PO daily 06/14/20 18 2017 Inactive NeAsia Mediamed Pediatric Sinus Rinse Refill packet RxNorm: 1 Unit Dose NASAL PRN 05/31/20 18 2021 Inactive diclofenac sodium 75 mg tablet,delayed release RxNorm: 351566 1 Tablet(s) PO BID 05/31/20 18 2017 Inactive lisinopril 2.5 mg tablet RxNorm: 528134 1 Tablet(s) PO daily 05/31/20 18 2017 Inactive metoprolol succinate ER 50 mg tablet,extended release 24 hr RxNorm: 432234 1 Tablet(s) PO daily 05/31/20 18 2017 Inactive levothyroxine 50 mcg tablet RxNorm: 235382 1 Tablet(s) PO daily 05/31/20 18 2017 Inactive TRUEplus Lancets 30 gauge RxNorm: 1 Lancets Miscellaneous QAM 05/31/20 18 2017 Inactive 100/box Ventolin HFA 90 mcg/actuation aerosol inhaler RxNorm: 954743 2 Puff(s) INH QID 05/31/20 18 2017 Inactive Aleve 220 mg capsule RxNorm: 5193939 1 Capsule(s) PO BID 05/31/20 18 2018 Inactive ranitidine 150 mg tablet RxNorm: 665009 1 Tablet(s) PO BID 05/31/20 18 2017 Inactive gabapentin 300 mg capsule RxNorm: 226006 1 Capsule(s) PO TID as needed 05/31/20 18 2017 Inactive atorvastatin 20 mg tablet RxNorm: 530183 1 Tablet(s) PO QHS 05/31/20 18 2017 Inactive True Metrix Glucose Test Strip RxNorm: 1 Test Strips Miscellaneous QAM 05/31/20 18 2017 Inactive 50/container Calcium 600-D3 Plus 600 mg calcium-800 unit-50 mg tablet RxNorm: 1 Tablet(s) PO daily take an additonal tablet for itching. 05/31/20 18 2017 Inactive hydrochlorothiazide 12.5 mg tablet RxNorm: 832415 1 Tablet(s) PO QAM 05/31/20 18 2017 Inactive Flintstones Complete (iron) 18 mg iron chewable tablet RxNorm: 1 Tablet(s) PO daily 05/31/20 18 2017 Inactive True Metrix Glucose Meter RxNorm: miscellaneous 08/17/20 19 2018 Inactive sertraline 50 mg tablet RxNorm: 397772 1 Tablet(s) PO daily 11/28/19 20 2019 Inactive loperamide 2 mg tablet RxNorm: 435203 oral 09/29/20 19 2018 Inactive d-mannose oral powder RxNorm: PO 18 2021 Inactive Symbicort 160 mcg-4.5 mcg/actuation HFA aerosol inhaler RxNorm: 4961458 2 Puff(s) INH BID 08/17/202018 Inactive Medication Administered No Medication Administered data Results Observation Observation Code Item Item Code Result Date S ervice Location PREALBUMIN [address] Prealbumin 56942-4 28 mg/dL 04/30/2019 [facility] [address] [place], [place] [address]HE [id number] pg/mL04/30/2019 [facility] [address] [place] [address] Procedures Procedure Codes Date AHA/REBECCA Classification Assessment CPT-4: DAHA 04/25/2019 Controlled Substance Report CPT-4: CTRSU 04/03 Urinalysis, dip stick CPT-4: 88549 03/28/[address]: 031485991 CPT-4: G15Xetarbb Reason For Visit No Reason For Visit data Plan of Care Planned Activity Notes Codes Status Date Patient Education: Patient Medication Summary Sxfcbwmyr09/24/2019Appointment: Rasta Palafox WPtel: [address] [facility] [id number]: Rasta Palafox WPtel: [address] [facility] [id number]: Rasta Palafox WPtel: [address] [facility] [id number]: Rasta Palafox WPtel: [address] [facility] [address] [id number]: Pending Gynecology Referral InformationReferral ProcessedReferral: Pending Pulmonology Referral InformationReferralProcessed Referral: Pending Psychiatry Referral InformationReferralInitiatedReferral: Pending Respiratory Services Referral InformationReferralInitiatedReferral: Pending Ophthalmology Referral InformationReferralInitiatedReferral: [facility] WPtel: [address] [facility] [address] [facility] USWriter placed a call out to the patient to notify her that it has been recommended that she be seenby 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 Patient agreed to be seen, does not have a provider of choice and no transportationissues. Steam Hammer Operator faxed referral and clinical notes to [facility] in [place], [place] near the patient's home. Patient to [...] seen and prefers a provider in the [place] or [facility]. Steam Hammer Operator placed a call out to everyone listed in the area and the only location that was able to accept the patient's insurance was [address] [address] and spoke with Maylin. Maylin asked that the patient's referral, face sheet and visit notes be faxed to . Steam Hammer Operator faxed over requested documents. Patient appointment confirmation letter generated and mailed to her home address. Patient to call to schedule an appointment.ProcessedReferral: [facility] WPtel: [address] [place] [address] [place], [place] [id number] USPatient notified that it has been advised that she be seen by Neurology. Patient agreed to be seen and prefers to be seen by a provider in the [place], [place] area. Patient denies any concerns with transportation, and prefers to schedule her own appointment. Steam Hammer Operator placed a call out to [facility] and spoke with [...]
--- OUTSIDE RECORDS SUMMARY | 2019-04-26 20:00 | XMS_ITS | CCD ---
Author Name Office, [facility] Phone Care Team Providers Care B2B Appointment Setter Name Role Phone Palomo COATER HELPER, Anna Primary Care Provider Unav ailable Unavailable Chronic Care Management Unavaila ble Summary Purpose DataExchange Insurance Providers Payer name Policy type / Coverage type Covered libertarian ID Effective Begin Date Effective End Date SUKI MAYO [id number] Unknown Unknown Family history Mother Diagnosis Age [...] 05/31/2018 Education level Unknown Some High School 10th05/31/20185384NmmjlaguyeHivzfhpSgcvoqbsrq51/29/2018Tobacco historySNOMED CT: 327611401Kjn never smoked or chewed nrdiwum6605/31/2018Alcohol historySNOMED CT: 165117414Dhxom drinks epmpmwt0505/31/2018Has the patient ever used illegal drugs? UnknownHas never used illegal drugs05/31/2018DNR Order/ Advanced Directive UnknownFull Code05/31/2018 Allergies, Adverse Reactions, Alerts Substance Reaction Codes Entered Date Inactivated Date Status *No known food allergies Acndocm3809/06/2018No Inactive DateActiveMethylprednisolonehivesRxNorm: 6902 09/06/2018No Inactive DateActive Problems Condition Codes Effective Dates Condition St atus Patient Not Seen ICD-10: UXZ.01 ICD-9: XZ0.107ActiveEncounter for immunizationICD-10: Z23 ICD-9: V03.907ActiveEncounter for screening for malignant neoplasm of cervixICD-10: Z12.4 ICD-9: V76.207/ActiveHypertensive heart disease with heart failureICD-10: I11.0 ICD-9: 402.9107ActiveOther supervisor intermediates (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ICD-10: Z79.899 ICD-9: V58.6907/ActiveType 2 [...] Test Strip RxNorm: 1 Test Strips Miscellaneous [facility] 02/01/20 19 2018 Inactive 100/container Alcohol Prep Pads RxNorm: 414069 1 Patch TOP [facility] 02/01/202018 Inactive TRUEplus Lancets 30 gauge RxNorm: 1 Lancets Miscellaneous [facility] 02/01/20 19 2018 Inactive 100/box gabapentin 300 mg capsule RxNorm: 029128 1 Capsule(s) PO TID as needed 02/01/20 19 2018 Inactive lisinopril 2.5 mg tablet RxNorm: 690436 1 Tablet(s) PO daily 12/28/19 19 2018 Inactive buspirone 7.5 mg tablet RxNorm: 175517 1 Tablet(s) PO BID 10/21/19 19 2018 Inactive This refill negates all other refills of this medication ranitidine 150 mg tablet RxNorm: 609009 1 Tablet(s) PO BID 10/21/19 19 2018 Inactive This refill negates all other refills of this medication albuterol sulfate 2.5 mg/3 mL (0.083 %) solution for nebulization RxNorm: 476991 1 Vial INH QID 10/21/19 19 2018 [...] this medication gabapentin 300 mg capsule RxNorm: 710524 1 Capsule(s) PO TID as needed 10/21/19 19 2018 Inactive atorvastatin 20 mg tablet RxNorm: 071557 1 Tablet(s) PO QHS 10/21/192018 Inactive This refill negates all other refills of this medication trazodone 50 mg tablet RxNorm: 662129 1 Tablet(s) PO QHS 10/21/192018 Inactive This refill negates all other refills of this medication Ventolin HFA 90 mcg/actuation aerosol inhaler RxNorm: 277650 2 Puff(s) INH QID 10/21/192018 Inactive Please do not fill early. Please do not auto refill. This refill negates all other refills of this medication Calcium 600-D3 Plus 600 mg calcium-800 unit-50 mg tablet RxNorm: 1 Tablet(s) PO daily take an additonal tablet for itching. 10/21/192018 Inactive This refill negates all other refills of this medication Singulair 10 mg tablet RxNorm: 992734 1 Tablet(s) PO daily 10/21/192018 Inactive This refill negates all other refills of this medication diclofenac sodium 75 mg tablet,delayed release RxNorm: 359706 1 Tablet(s) PO BID 10/21/19 19 2018 Inactive This refill negates all other refills of this medication hydrochlorothiazide 12.5 mg tablet RxNorm: 376177 1 Tablet(s) PO QAM 10/21/19 19 2018 Inactive metoprolol succinate ER 50 mg tablet,extended release 24 hr RxNorm: 144259 1 Tablet(s) PO daily 10/21/19 19 2018 Inactive This refill negates all other refills of this medication levothyroxine 50 mcg tablet RxNorm: 126782 1 Tablet(s) PO daily 10/21/19 19 2018 Inactive This refill negates all other refills of this medication cetirizine 10 mg tablet RxNorm: 4448271 1 Tablet(s) PO daily 10/21/192018 Inactive This refill negates all other refills of this medication. Please do not auto refill Flintstones Complete (iron) 18 mg iron chewable tablet RxNorm: 1 Tablet(s) PO daily 10/21/192018 Inactive This refill negates all other refills of this medication buspirone 7.5 mg tablet RxNorm: 981228 1 Tablet(s) PO BID 10/12/19 19 2018 Inactive cetirizine 10 mg tablet RxNorm: 7882435 1 Tablet(s) PO daily 09/28/20 18 2018 Inactive Guaiasorb DM 10 mg-100 mg/5 mL oral liquid RxNorm: 185105 10 Milliliter(s) PO As needed every 4 hr 09/24/202018 Inactive Vicks Vaporub 4.7 %-1.2 %-2.6 % topical ointment RxNorm: 3911548 1 Application TOP TID 09/24/20 18 2018 Inactive levmetamfetamine 50 mg nasal inhaler RxNorm: 1 Unit(s) NASAL Q3-4H 09/24/20 18 2017 Inactive sertraline 50 mg tablet RxNorm: 170287 1 Tablet(s) PO daily 09/09/20 18 2018 Inactive Please note dose trazodone 50 mg tablet RxNorm: 565567 1 Tablet(s) PO QHS 09/06/20 18 2018 Inactive sertraline 50 mg tablet RxNorm: 438133 1 Tablet(s) PO daily 09/06/20 18 2017 Inactive amoxicillin 500 mg tablet RxNorm: 592101 1 Tablet(s) PO Q12H 08/31/20 18 2017 Inactive albuterol sulfate 2.5 mg/3 mL (0.083 %) solution for nebulization RxNorm: 114820 1 Vial INH QID 08/10/20 18 2018 Inactive 60/box. Please do not fill early. Please do not auto refill. Prozac 10 mg capsule RxNorm: 937551 1 Capsule(s) PO daily 08/09/20 18 2017 Inactive buspirone 7.5 mg tablet RxNorm: 037658 1 Tablet(s) PO BID 08/09/20 18 2018 Inactive gabapentin 300 mg capsule RxNorm: 667593 1 Capsule(s) PO TID as needed 08/01/20 18 2018 Inactive hydrochlorothiazide 12.5 mg tablet RxNorm: 275180 1 Tablet(s) PO QAM 08/01/20 18 2018 Inactive ranitidine 150 mg tablet RxNorm: 620578 1 Tablet(s) PO BID 08/01/20 18 2018 Inactive Macrobid 100 mg capsule RxNorm: 930587 1 Capsule(s) PO Q12H 06/21/20 18 2017 Inactive Singulair 10 mg tablet RxNorm: 435024 1 Tablet(s) PO daily 06/14/20 18 2018 Inactive Ventolin HFA 90 mcg/actuation aerosol inhaler RxNorm: 2359062 2 Puff(s) INH QID 06/14/20 18 2018 Inactive Singulair 10 mg tablet RxNorm: 427764 1 Tablet(s) PO daily 06/14/20 18 2017 Inactive buspirone 7.5 mg tablet RxNorm: 526547 1 Tablet(s) PO BID 06/14/20 18 2017 Inactive Prozac 10 mg capsule RxNorm: 514293 1 Capsule(s) PO daily 06/14/20 18 2017 Inactive NeRocketskates Pediatric Sinus Rinse Refill packet RxNorm: 1 Unit Dose NASAL PRN 05/31/20 18 2021 Inactive diclofenac sodium 75 mg tablet,delayed release RxNorm: 554570 1 Tablet(s) PO BID 05/31/20 18 2017 Inactive lisinopril 2.5 mg tablet RxNorm: 434712 1 Tablet(s) PO daily 05/31/20 18 2017 Inactive metoprolol succinate ER 50 mg tablet,extended release 24 hr RxNorm: 671048 1 Tablet(s) PO daily 05/31/20 18 2017 Inactive levothyroxine 50 mcg tablet RxNorm: 695714 1 Tablet(s) PO daily 05/31/20 18 2017 Inactive TRUEplus Lancets 30 gauge RxNorm: 1 Lancets Miscellaneous QAM 05/31/20 18 2017 Inactive 100/box Ventolin HFA 90 mcg/actuation aerosol inhaler RxNorm: 307051 2 Puff(s) INH QID 05/31/20 18 2017 Inactive Aleve 220 mg capsule RxNorm: 7857150 1 Capsule(s) PO BID 05/31/20 18 2018 Inactive ranitidine 150 mg tablet RxNorm: 202566 1 Tablet(s) PO BID 05/31/20 18 2017 Inactive gabapentin 300 mg capsule RxNorm: 757429 1 Capsule(s) PO TID as needed 05/31/20 18 2017 Inactive atorvastatin 20 mg tablet RxNorm: 341546 1 Tablet(s) PO QHS 05/31/20 18 2017 Inactive True Metrix Glucose Test Strip RxNorm: 1 Test Strips Miscellaneous QAM 05/31/20 18 2017 Inactive 50/container Calcium 600-D3 Plus 600 mg calcium-800 unit-50 mg tablet RxNorm: 1 Tablet(s) PO daily take an additonal tablet for itching. 05/31/20 18 2017 Inactive hydrochlorothiazide 12.5 mg tablet RxNorm: 369063 1 Tablet(s) PO QAM 05/31/20 18 2017 Inactive Flintstones Complete (iron) 18 mg iron chewable tablet RxNorm: 1 Tablet(s) PO daily 05/31/20 18 2017 Inactive True Metrix Glucose Meter RxNorm: miscellaneous 08/17/20 19 2018 Inactive sertraline 50 mg tablet RxNorm: 488233 1 Tablet(s) PO daily 11/28/19 20 2019 Inactive loperamide 2 mg tablet RxNorm: 251382 oral 09/29/20 19 2018 Inactive d-mannose oral powder RxNorm: PO 18 2021 Inactive Symbicort 160 mcg-4.5 mcg/actuation HFA aerosol inhaler RxNorm: 5312357 2 Puff(s) INH BID 08/17/202018 Inactive Medication Administered No Medication Administered data Procedures Procedure Codes Date [facility] Classification Assessment CPT-4: DAHA 04/25/2019 Controlled Substance Report CPT-4: CTRSU 04/03 Urinalysis, dip stick CPT-4: 82864 03/28/[address]: 472816159 CPT-4: [id number] Reason For Visit No Reason For Visit data Encounters Encounter Performer Location Location Address Codes Magdi e (IND) Independent Lab Draw Diagnosis: Patient Not Seen[ICD10: UXZ.01][place] [facility] [id number] [place] [address] 31654WVT-1: IND04/27/2019 Plan of Care Planned Activity Notes Codes Status Date Patient Education: Patient Medication Summary Puieobsuq93/26/2019Appointment: Charlene Oropeza WPtel: [address] [facility] [id number]: Rasta Palafox WPtel: [address] [facility] [id number]: Rasta Palafox WPtel: [address] [facility] [id number]: Rasta Palafox WPtel: [address] [facility] [address] [id number]: Rasta Palafox WPtel: [address] [facility] [address] [id number]: Pending Gynecology Referral InformationReferral ProcessedReferral: Pending Pulmonology Referral InformationReferralProcessed Referral: Pending Psychiatry Referral InformationReferralInitiatedReferral: Pending Respiratory Services Referral InformationReferralInitiatedReferral: Pending Ophthalmology Referral InformationReferralInitiatedReferral: [facility] WPtel: [address] [place], [place] [id number] USWriter placed a call out to the patient to notify her that it has been recommended that she be seenby 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 Patient agreed to be seen, does not have a provider of choice and no transportationissues. Animal Caregiver faxed referral and clinical notes to [facility] in [place], [place] near the patient's home. Patient to [...] seen and prefers a provider in the [place] or [facility]. Animal Caregiver placed a call out to everyone listed in the area and the only location that was able to accept the patient's insurance was [place] [address] [place] [address] and spoke with Maylin. Maylin asked that the patient's referral, face sheet and visit notes be faxed to . Animal Caregiver faxed over requested documents. Patient appointment confirmation letter generated and mailed to her home address. Patient to call to schedule an appointment.ProcessedReferral: [facility] WPtel: [address] [facility] [address] [id number] USPatient notified that it has been advised that she be seen by Neurology. Patient agreed to be seen and prefers to be seen by a provider in the [place], [place] area. Patient denies any concerns with transportation, and prefers to schedule her own appointment. Animal Caregiver placed a call out to [facility] and spoke with Neeraj P: [...]
--- OUTSIDE RECORDS SUMMARY | 2019-05-02 20:00 | XMS_ITS | CCD ---
Author Name Dr Lacey Oropeza DO Address [address] [facility], [place] [address] [place] [address] Phone Organization [facility] Phone Care Team Providers Care Meteorology Professor Name Role Phone Palomo RISK ADJUSTMENT SPECIALIST, Anna Primary Care Provider Unav ailable Unavailable Chronic Care Management Unavaila ble Summary Purpose DataExchange Insurance Providers Payer name Policy type / Coverage type Covered constitution party ID Effective Begin Date Effective End Date [facility] [id number] Unknown Unknown Family history Mother Diagnosis Age [...] 05/31/2018 Education level Unknown Some High School 10th05/31/20182287CslrkmstuqWekaaqmDaklpubxbl84/29/2018Tobacco historySNOMED CT: [id number] never smoked or chewed ijllsqh2005/31/2018Alcohol historySNOMED CT: 532913638Mjuzw drinks kinixai4105/31/2018Has the patient ever used illegal drugs? UnknownHas never used illegal drugs05/31/2018DNR Order/ Advanced Directive UnknownFull Code05/31/2018 Allergies, Adverse Reactions, Alerts Substance Reaction Codes Entered Date Inactivated Date Status *No known food allergies Jqosjve4609/06/2018No Inactive DateActiveMethylprednisolonehivesRxNorm: 6902 09/06/2018No Inactive DateActive Problems Condition Codes Effective Dates Condition St atus Polyneuropathy, unspecified ICD-10: G62. 9 ICD-9: 356.9005/30/2018ActivePatient Not SeenICD-10: UXZ.01 ICD-9: XZ0.107/ActiveEncounter for immunizationICD-10: Z23 ICD-9: V03.907/ActiveEncounter for screening for malignant neoplasm of cervixICD-10: Z12.4 ICD-9: V76.207/ActiveHypertensive heart disease with heart failureICD-10: I11.0 ICD-9: 402.9107/ActiveOther [facility] (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ICD-10: Z79.899 ICD-9: V58.6907/ActiveType 2 [...] mixed anxiety and depressed moodICD-10: F43.23 ICD-9: 309.28111/06/2017ActiveHeadacheICD-10: R51 ICD-9: 784.001ActiveAcute upper respiratory infection, unspecifiedICD- 10: J06.9 ICD-9: 465.912ResolvedChronic kidney disease, unspecifiedICD-10: N18.9 ICD-9: 585.9010/03/2018ResolvedEncounter for screening, unspecifiedICD-10: Z13.9 ICD-9: V82.9111/06/2017ActiveLong term (current) use of non-steroidal anti- inflammatories (NSAID)ICD-10: Z79.1 ICD-9: V58.6409ActiveHyperlipidemia, unspecifiedICD-10: E78.5 ICD-9: 272.408Active Medications Medication Codes Instructions Start Date Stop Date Status Fill Instructions gabapentin 300 mg capsule RxNorm: 733745 1 Capsule(s) PO TID 05/03/20 19 2018 Inactive Flintstones Complete (iron) 18 mg iron chewable tablet RxNorm: 1 Tablet(s) PO daily 04/04/20 19 2021 Inactive This refill negates all other refills of this medication True Metrix Glucose Test Strip RxNorm: 1 Test Strips Miscellaneous [facility] 02/01/20 19 2018 Inactive 100/container Alcohol Prep Pads RxNorm: 913104 1 Patch TOP [facility] 02/01/20 19 2018 Inactive TRUEplus Lancets 30 gauge RxNorm: 1 Lancets Miscellaneous [facility] 02/01/20 19 2018 Inactive 100/box gabapentin 300 mg capsule RxNorm: 499230 1 Capsule(s) PO TID as needed 02/01/20 19 2018 Inactive lisinopril 2.5 mg tablet RxNorm: 911093 1 Tablet(s) PO daily 12/28/19 19 2018 Inactive buspirone 7.5 mg tablet RxNorm: 948273 1 Tablet(s) PO BID 10/21/19 19 2018 Inactive This refill negates all other refills of this medication ranitidine 150 mg tablet RxNorm: 197036 1 Tablet(s) PO BID 10/21/19 19 2018 Inactive This refill negates all other refills of this medication albuterol sulfate 2.5 mg/3 mL (0.083 %) solution for nebulization RxNorm: 490183 1 Vial INH QID 10/21/19 19 2018 [...] this medication gabapentin 300 mg capsule RxNorm: 263101 1 Capsule(s) PO TID as needed 10/21/19 19 2018 Inactive atorvastatin 20 mg tablet RxNorm: 043139 1 Tablet(s) PO QHS 10/21/192018 Inactive This refill negates all other refills of this medication trazodone 50 mg tablet RxNorm: 044925 1 Tablet(s) PO QHS 10/21/192018 Inactive This refill negates all other refills of this medication Ventolin HFA 90 mcg/actuation aerosol inhaler RxNorm: 019745 2 Puff(s) INH QID 10/21/192018 Inactive Please do not fill early. Please do not auto refill. This refill negates all other refills of this medication Calcium 600-D3 Plus 600 mg calcium-800 unit-50 mg tablet RxNorm: 1 Tablet(s) PO daily take an additonal tablet for itching. 10/21/19 19 2018 Inactive This refill negates all other refills of this medication Singulair 10 mg tablet RxNorm: 920411 1 Tablet(s) PO daily 10/21/192018 Inactive This refill negates all other refills of this medication diclofenac sodium 75 mg tablet,delayed release RxNorm: 373318 1 Tablet(s) PO BID 10/21/19 19 2018 Inactive This refill negates all other refills of this medication hydrochlorothiazide 12.5 mg tablet RxNorm: 604306 1 Tablet(s) PO QAM 10/21/19 19 2018 Inactive metoprolol succinate ER 50 mg tablet,extended release 24 hr RxNorm: 516582 1 Tablet(s) PO daily 10/21/19 19 2018 Inactive This refill negates all other refills of this medication levothyroxine 50 mcg tablet RxNorm: 603406 1 Tablet(s) PO daily 10/21/19 19 2018 Inactive This refill negates all other refills of this medication cetirizine 10 mg tablet RxNorm: 0828647 1 Tablet(s) PO daily 10/21/192018 Inactive This refill negates all other refills of this medication. Please do not auto refill Flintstones Complete (iron) 18 mg iron chewable tablet RxNorm: 1 Tablet(s) PO daily 10/21/192018 Inactive This refill negates all other refills of this medication buspirone 7.5 mg tablet RxNorm: 742951 1 Tablet(s) PO BID 10/12/192018 Inactive cetirizine 10 mg tablet RxNorm: 0641477 1 Tablet(s) PO daily 09/28/202018 Inactive Guaiasorb DM 10 mg-100 mg/5 mL oral liquid RxNorm: 972192 10 Milliliter(s) PO As needed every 4 hr 09/24/20 18 2018 Inactive Vicks Vaporub 4.7 %-1.2 %-2.6 % topical ointment RxNorm: 3182361 1 Application TOP TID 09/24/20 18 2018 Inactive levmetamfetamine 50 mg nasal inhaler RxNorm: 1 Unit(s) NASAL Q3-4H 09/24/20 18 2017 Inactive sertraline 50 mg tablet RxNorm: 446432 1 Tablet(s) PO daily 09/09/20 18 2018 Inactive Please note dose trazodone 50 mg tablet RxNorm: 928259 1 Tablet(s) PO QHS 09/06/20 18 2018 Inactive sertraline 50 mg tablet RxNorm: 958355 1 Tablet(s) PO daily 09/06/20 18 2017 Inactive amoxicillin 500 mg tablet RxNorm: 899393 1 Tablet(s) PO Q12H 08/31/20 18 2017 Inactive albuterol sulfate 2.5 mg/3 mL (0.083 %) solution for nebulization RxNorm: 031147 1 Vial INH QID 08/10/20 18 2018 Inactive 60/box. Please do not fill early. Please do not auto refill. Prozac 10 mg capsule RxNorm: 721510 1 Capsule(s) PO daily 08/09/20 18 2017 Inactive buspirone 7.5 mg tablet RxNorm: 734260 1 Tablet(s) PO BID 08/09/20 18 2018 Inactive gabapentin 300 mg capsule RxNorm: 490952 1 Capsule(s) PO TID as needed 08/01/20 18 2018 Inactive hydrochlorothiazide 12.5 mg tablet RxNorm: 474140 1 Tablet(s) PO QAM 08/01/20 18 2018 Inactive ranitidine 150 mg tablet RxNorm: 735446 1 Tablet(s) PO BID 08/01/20 18 2018 Inactive Macrobid 100 mg capsule RxNorm: 013448 1 Capsule(s) PO Q12H 06/21/20 18 2017 Inactive Singulair 10 mg tablet RxNorm: 383714 1 Tablet(s) PO daily 06/14/20 18 2018 Inactive Ventolin HFA 90 mcg/actuation aerosol inhaler RxNorm: 2844482 2 Puff(s) INH QID 06/14/20 18 2018 Inactive Singulair 10 mg tablet RxNorm: 370609 1 Tablet(s) PO daily 06/14/20 18 2017 Inactive buspirone 7.5 mg tablet RxNorm: 580576 1 Tablet(s) PO BID 06/14/20 18 2017 Inactive Prozac 10 mg capsule RxNorm: 722943 1 Capsule(s) PO daily 06/14/20 18 2017 Inactive Neilmed Pediatric Sinus Rinse Refill packet RxNorm: 1 Unit Dose NASAL PRN 05/31/20 18 2021 Inactive diclofenac sodium 75 mg tablet,delayed release RxNorm: 880811 1 Tablet(s) PO BID 05/31/20 18 2017 Inactive lisinopril 2.5 mg tablet RxNorm: 684099 1 Tablet(s) PO daily 05/31/20 18 2017 Inactive metoprolol succinate ER 50 mg tablet,extended release 24 hr RxNorm: 455511 1 Tablet(s) PO daily 05/31/20 18 2017 Inactive levothyroxine 50 mcg tablet RxNorm: 080995 1 Tablet(s) PO daily 05/31/20 18 2017 Inactive TRUEplus Lancets 30 gauge RxNorm: 1 Lancets Miscellaneous QAM 05/31/20 18 2017 Inactive 100/box Ventolin HFA 90 mcg/actuation aerosol inhaler RxNorm: 659474 2 Puff(s) INH QID 05/31/20 18 2017 Inactive Aleve 220 mg capsule RxNorm: 4266697 1 Capsule(s) PO BID 05/31/20 18 2018 Inactive ranitidine 150 mg tablet RxNorm: 074751 1 Tablet(s) PO BID 05/31/20 18 2017 Inactive gabapentin 300 mg capsule RxNorm: 556545 1 Capsule(s) PO TID as needed 05/31/20 18 2017 Inactive atorvastatin 20 mg tablet RxNorm: 009960 1 Tablet(s) PO QHS 05/31/20 18 2017 Inactive True Metrix Glucose Test Strip RxNorm: 1 Test Strips Miscellaneous QAM 05/31/20 18 2017 Inactive 50/container Calcium 600-D3 Plus 600 mg calcium-800 unit-50 mg tablet RxNorm: 1 Tablet(s) PO daily take an additonal tablet for itching. 05/31/20 18 2017 Inactive hydrochlorothiazide 12.5 mg tablet RxNorm: 870852 1 Tablet(s) PO QAM 05/31/20 18 2017 Inactive Flintstones Complete (iron) 18 mg iron chewable tablet RxNorm: 1 Tablet(s) PO daily 05/31/20 18 2017 Inactive True Metrix Glucose Meter RxNorm: miscellaneous 08/17/20 19 2018 Inactive sertraline 50 mg tablet RxNorm: 784381 1 Tablet(s) PO daily 11/28/19 20 2019 Inactive loperamide 2 mg tablet RxNorm: 969071 oral 09/29/20 19 2018 Inactive d-mannose oral powder RxNorm: PO 18 2021 Inactive Symbicort 160 mcg-4.5 mcg/actuation HFA aerosol inhaler RxNorm: 2718409 2 Puff(s) INH BID 08/17/202018 Inactive Medication Administered No Medication Administered data Procedures Procedure Codes Date AHA/REBECCA Classification Assessment CPT-4: DAHA 04/25/2019 Controlled Substance Report CPT-4: CTRSU 04/03 Urinalysis, dip stick CPT-4: 64947 03/28/2019 [id number] CPT-4: C66Gfarpdz Reason For Visit No Reason For Visit data Plan of Care Planned Activity Notes Codes Status Date Patient Education: Patient Medication Summary Cpzpboshm91/01/2019Appointment: Office, DrknfnL46668/26/2019Appointment: Charlene Oropeza WPtel: [address] [facility] [id number]: Rasta Palafox WPtel: [address] [facility] [id number]: Rasta Palafox WPtel: [address] [facility] [id number]: Rasta Palafox WPtel: [address] [facility] [address] [id number]: Rasta Palafox WPtel: [address] [facility] [address] [id number]: Pending Gynecology Referral InformationReferral ProcessedReferral: Pending Pulmonology Referral InformationReferralProcessed Referral: Pending Psychiatry Referral InformationReferralInitiatedReferral: Pending Respiratory Services Referral InformationReferralInitiatedReferral: Pending Ophthalmology Referral InformationReferralInitiatedReferral: [facility] WPtel: [address] [facility] [address] [place] [address] USWriter placed a call out to the patient to notify her that it has been recommended that she be seenby 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 Patient agreed to be seen, does not have a provider of choice and no transportationissues. Server Software Engineer faxed referral and clinical notes to [facility] in [place], [place] near the patient's home. Patient to [...] seen and prefers a provider in the [place] or [facility]. Server Software Engineer placed a call out to everyone listed in the area and the only location that was able to accept the patient's insurance was [place] [address] [place] [address] and spoke with Maylin. Maylin asked that the patient's referral, face sheet and visit notes be faxed to . Server Software Engineer faxed over requested documents. Patient appointment confirmation letter generated and mailed to her home address. Patient to call to schedule an appointment.ProcessedReferral: [facility] WPtel: [address] [facility] [address] [id number] USPatient notified that it has been advised that she be seen by Neurology. Patient agreed to be seen and prefers to be seen by a provider in the [place], [place] area. Patient denies any concerns with transportation, and prefers to schedule her own appointment. Server Software Engineer placed a call out to [facility] and spoke with Neeraj P: who confirmed that their office is able to acceptnew patients and the patient's insurance. After confirming the providers fax number, fiction and nonfiction prose writer faxed over the patient's referral, and [...]
--- OUTSIDE RECORDS SUMMARY | 2019-05-04 20:00 | XMS_ITS | CCD ---
Author Name Korey BOWMAN, Dr Jensen Address [address] [place] [address] Phone Organization [facility] Phone Care Team Providers Care Tapping Machine Operator Automatic Name Role Phone Palomo MANAGER [facility], Anna Primary Care Provider Unav ailable Unavailable Chronic Care Management Unavaila ble Summary Purpose DataExchange Insurance Providers Payer name Policy type / Coverage type Covered alliance party ID Effective Begin Date Effective End Date SUKI BUTTS [facility] [id number] Unknown Unknown Family history Mother Diagnosis Age [...] 05/31/2018 Education level Unknown Some High School 10th05/31/20181833YzxeyncbnkVxnonqkWisapiaeax16/29/2018Tobacco historySNOMED CT: 231681967Kwv never smoked or chewed smxfqno5005/31/2018Alcohol historySNOMED CT: 182662588Ewvvi drinks lyagxth4205/31/2018Has the patient ever used illegal drugs? UnknownHas never used illegal drugs05/31/2018DNR Order/ Advanced Directive UnknownFull Code05/31/2018 Allergies, Adverse Reactions, Alerts Substance Reaction Codes Entered Date Inactivated Date Status *No known food allergies Qenrowv4809/06/2018No Inactive DateActiveMethylprednisolonehivesRxNorm: 6902 09/06/2018No Inactive DateActive Problems Condition Codes Effective Dates Condition St atus Polyneuropathy, unspecified ICD-10: G62. 9 ICD-9: 356.908ActivePatient Not SeenICD-10: UXZ.01 ICD-9: XZ0.107/ActiveEncounter for immunizationICD-10: Z23 ICD-9: V03.907/ActiveEncounter for screening for malignant neoplasm of cervixICD-10: Z12.4 ICD-9: V76.207/ActiveHypertensive heart disease with heart failureICD-10: I11.0 ICD-9: 402.9107ActiveOther long line teamster (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ICD-10: Z79.899 ICD-9: V58.6907ActiveType 2 diabetes mellitus without complicationsICD- 10: E11.9 [...] ICD-9: 465.912ResolvedChronic kidney disease, unspecifiedICD-10: N18.9 ICD-9: 585.901ResolvedEncounter for screening, unspecifiedICD-10: Z13.9 ICD-9: V82.9111/06/2017ActiveLong term (current) use of non-steroidal anti- inflammatories (NSAID)ICD-10: Z79.1 ICD-9: V58.6409ActiveHyperlipidemia, unspecifiedICD-10: E78.5 ICD-9: 272.408Active Medications Medication Codes Instructions Start Date Stop Date Status Fill Instructions gabapentin 300 mg capsule RxNorm: 033110 1 Capsule(s) PO TID 05/03/20 19 2018 Inactive Flintstones Complete (iron) 18 mg iron chewable tablet RxNorm: 1 Tablet(s) PO daily 04/04/20 19 2021 Inactive This refill negates all other refills of this medication True Metrix Glucose Test Strip RxNorm: 1 Test Strips Miscellaneous [facility] 02/01/202018 Inactive 100/container Alcohol Prep Pads RxNorm: 067927 1 Patch TOP [facility] 02/01/20 19 2018 Inactive TRUEplus Lancets 30 gauge RxNorm: 1 Lancets Miscellaneous [facility] 02/01/20 19 2018 Inactive 100/box gabapentin 300 mg capsule RxNorm: 064303 1 Capsule(s) PO TID as needed 02/01/20 19 2018 Inactive lisinopril 2.5 mg tablet RxNorm: 765314 1 Tablet(s) PO daily 12/28/19 19 2018 Inactive buspirone 7.5 mg tablet RxNorm: 388014 1 Tablet(s) PO BID 10/21/19 19 2018 Inactive This refill negates all other refills of this medication ranitidine 150 mg tablet RxNorm: 279427 1 Tablet(s) PO BID 10/21/19 19 2018 Inactive This refill negates all other refills of this medication albuterol sulfate 2.5 mg/3 mL (0.083 %) solution for nebulization RxNorm: 793852 1 Vial INH QID 10/21/19 19 2018 [...] this medication gabapentin 300 mg capsule RxNorm: 189269 1 Capsule(s) PO TID as needed 10/21/19 19 2018 Inactive atorvastatin 20 mg tablet RxNorm: 184186 1 Tablet(s) PO QHS 10/21/19 19 2018 Inactive This refill negates all other refills of this medication trazodone 50 mg tablet RxNorm: 549105 1 Tablet(s) PO QHS 10/21/19 19 2018 Inactive This refill negates all other refills of this medication Ventolin HFA 90 mcg/actuation aerosol inhaler RxNorm: 261114 2 Puff(s) INH QID 10/21/19 19 2018 [...] this medication Singulair 10 mg tablet RxNorm: 363017 1 Tablet(s) PO daily 10/21/19 19 2018 Inactive This refill negates all other refills of this medication diclofenac sodium 75 mg tablet,delayed release RxNorm: 748021 1 Tablet(s) PO BID 10/21/19 19 2018 Inactive This refill negates all other refills of this medication hydrochlorothiazide 12.5 mg tablet RxNorm: 742119 1 Tablet(s) PO QAM 10/21/19 19 2018 Inactive metoprolol succinate ER 50 mg tablet,extended release 24 hr RxNorm: 220507 1 Tablet(s) PO daily 10/21/19 19 2018 Inactive This refill negates all other refills of this medication levothyroxine 50 mcg tablet RxNorm: 232438 1 Tablet(s) PO daily 10/21/19 19 2018 Inactive This refill negates all other refills of this medication cetirizine 10 mg tablet RxNorm: 0249962 1 Tablet(s) PO daily 10/21/192018 Inactive This refill negates all other refills of this medication. Please do not auto refill Flintstones Complete (iron) 18 mg iron chewable tablet RxNorm: 1 Tablet(s) PO daily 10/21/192018 Inactive This refill negates all other refills of this medication buspirone 7.5 mg tablet RxNorm: 127712 1 Tablet(s) PO BID 10/12/192018 Inactive cetirizine 10 mg tablet RxNorm: 6010621 1 Tablet(s) PO daily 09/28/202018 Inactive Guaiasorb DM 10 mg-100 mg/5 mL oral liquid RxNorm: 197120 10 Milliliter(s) PO As needed every 4 hr 09/24/20 18 2018 Inactive Vicks Vaporub 4.7 %-1.2 %-2.6 % topical ointment RxNorm: 1527470 1 Application TOP TID 09/24/20 18 2018 Inactive levmetamfetamine 50 mg nasal inhaler RxNorm: 1 Unit(s) NASAL Q3-4H 09/24/20 18 2017 Inactive sertraline 50 mg tablet RxNorm: 129430 1 Tablet(s) PO daily 09/09/20 18 2018 Inactive Please note dose trazodone 50 mg tablet RxNorm: 743730 1 Tablet(s) PO QHS 09/06/20 18 2018 Inactive sertraline 50 mg tablet RxNorm: 906621 1 Tablet(s) PO daily 09/06/20 18 2017 Inactive amoxicillin 500 mg tablet RxNorm: 085842 1 Tablet(s) PO Q12H 08/31/20 18 2017 Inactive albuterol sulfate 2.5 mg/3 mL (0.083 %) solution for nebulization RxNorm: 309881 1 Vial INH QID 08/10/20 18 2018 Inactive 60/box. Please do not fill early. Please do not auto refill. Prozac 10 mg capsule RxNorm: 870876 1 Capsule(s) PO daily 08/09/20 18 2017 Inactive buspirone 7.5 mg tablet RxNorm: 354837 1 Tablet(s) PO BID 08/09/20 18 2018 Inactive gabapentin 300 mg capsule RxNorm: 749438 1 Capsule(s) PO TID as needed 08/01/20 18 2018 Inactive hydrochlorothiazide 12.5 mg tablet RxNorm: 783428 1 Tablet(s) PO QAM 08/01/20 18 2018 Inactive ranitidine 150 mg tablet RxNorm: 381109 1 Tablet(s) PO BID 08/01/20 18 2018 Inactive Macrobid 100 mg capsule RxNorm: 589824 1 Capsule(s) PO Q12H 06/21/20 18 2017 Inactive Singulair 10 mg tablet RxNorm: 431011 1 Tablet(s) PO daily 06/14/20 18 2018 Inactive Ventolin HFA 90 mcg/actuation aerosol inhaler RxNorm: 3132330 2 Puff(s) INH QID 06/14/20 18 2018 Inactive Singulair 10 mg tablet RxNorm: 047179 1 Tablet(s) PO daily 06/14/20 18 2017 Inactive buspirone 7.5 mg tablet RxNorm: 447343 1 Tablet(s) PO BID 06/14/20 18 2017 Inactive Prozac 10 mg capsule RxNorm: 579655 1 Capsule(s) PO daily 06/14/20 18 2017 Inactive Neilmed Pediatric Sinus Rinse Refill packet RxNorm: 1 Unit Dose NASAL PRN 05/31/20 18 2021 Inactive diclofenac sodium 75 mg tablet,delayed release RxNorm: 937120 1 Tablet(s) PO BID 05/31/20 18 2017 Inactive lisinopril 2.5 mg tablet RxNorm: 427477 1 Tablet(s) PO daily 05/31/20 18 2017 Inactive metoprolol succinate ER 50 mg tablet,extended release 24 hr RxNorm: 808599 1 Tablet(s) PO daily 05/31/20 18 2017 Inactive levothyroxine 50 mcg tablet RxNorm: 680205 1 Tablet(s) PO daily 05/31/20 18 2017 Inactive TRUEplus Lancets 30 gauge RxNorm: 1 Lancets Miscellaneous QAM 05/31/20 18 2017 Inactive 100/box Ventolin HFA 90 mcg/actuation aerosol inhaler RxNorm: 058559 2 Puff(s) INH QID 05/31/20 18 2017 Inactive Aleve 220 mg capsule RxNorm: 6210224 1 Capsule(s) PO BID 05/31/20 18 2018 Inactive ranitidine 150 mg tablet RxNorm: 247734 1 Tablet(s) PO BID 05/31/20 18 2017 Inactive gabapentin 300 mg capsule RxNorm: 339657 1 Capsule(s) PO TID as needed 05/31/20 18 2017 Inactive atorvastatin 20 mg tablet RxNorm: 155403 1 Tablet(s) PO QHS 05/31/20 18 2017 Inactive True Metrix Glucose Test Strip RxNorm: 1 Test Strips Miscellaneous QAM 05/31/20 18 2017 Inactive 50/container Calcium 600-D3 Plus 600 mg calcium-800 unit-50 mg tablet RxNorm: 1 Tablet(s) PO daily take an additonal tablet for itching. 05/31/20 18 2017 Inactive hydrochlorothiazide 12.5 mg tablet RxNorm: 892602 1 Tablet(s) PO QAM 05/31/20 18 2017 Inactive Flintstones Complete (iron) 18 mg iron chewable tablet RxNorm: 1 Tablet(s) PO daily 05/31/20 18 2017 Inactive True Metrix Glucose Meter RxNorm: miscellaneous 08/17/20 19 2018 Inactive sertraline 50 mg tablet RxNorm: 932150 1 Tablet(s) PO daily 11/28/19 20 2019 Inactive loperamide 2 mg tablet RxNorm: 249317 oral 09/29/20 19 2018 Inactive d-mannose oral powder RxNorm: PO 18 2021 Inactive Symbicort 160 mcg-4.5 mcg/actuation HFA aerosol inhaler RxNorm: 2370241 2 Puff(s) INH BID 08/17/202018 Inactive Medication Administered No Medication Administered data Procedures Procedure Codes Date AHA/REBECCA Classification Assessment CPT-4: DAHA 04/25/2019 Controlled Substance Report CPT-4: CTRSU 04/03 Urinalysis, dip stick CPT-4: 99235 03/28/2019 [facility]cology [facility]: 666486870 CPT-4: T52Umsrovn Reason For Visit No Reason For Visit data Plan of Care Planned Activity Notes Codes Status Date Patient Education: Patient Medication Summary Peqtshbcd71/01/2019Appointment: Office, WrbcojN11772/26/2019Appointment: Charlene Oropeza WPtel: [address] [facility] [id number]: Rasta Palafox WPtel: [address] [facility] [id number]: Rasta Palafox WPtel: [address] [facility] [id number]: Rasta Palafox WPtel: [address] [facility] [address] [id number]: Rasta Palafox WPtel: [address] [facility] [address] [id number]: Pending Gynecology Referral InformationReferral ProcessedReferral: Pending Pulmonology Referral InformationReferralProcessed Referral: Pending Psychiatry Referral InformationReferralInitiatedReferral: Pending Respiratory Services Referral InformationReferralInitiatedReferral: Pending Ophthalmology Referral InformationReferralInitiatedReferral: [facility] WPtel: [address] [facility] [address] [facility] USWriter placed a call out to the patient to notify her that it has been recommended that she be seenby 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 Patient agreed to be seen, does not have a provider of choice and no transportationissues. Molder Bench faxed referral and clinical notes to [facility] in [place], [place] near the patient's home. Patient to [...] seen and prefers a provider in the [place] or [facility]. Molder Bench placed a call out to everyone listed in the area and the only location that was able to accept the patient's insurance was [place] [address] [place] [address] and spoke with Maylin. Maylin asked that the patient's referral, face sheet and visit notes be faxed to . Molder Bench faxed over requested documents. Patient appointment confirmation letter generated and mailed to her home address. Patient to call to schedule an appointment.ProcessedReferral: [facility] Neurology WPtel: [address] [facility] [address] [id number] USPatient notified that it has been advised that she be seen by Neurology. Patient agreed to be seen and prefers to be seen by a provider in the [place], [place] area. Patient denies any concerns with transportation, and prefers to schedule her own appointment. Molder Bench placed a call out to [facility] and spoke with Neeraj P: [...]
--- OUTSIDE RECORDS SUMMARY | 2019-05-21 20:00 | XMS_ITS | CCD ---
Author Name Dr Lacey Oropeza DO Address [address] [facility] [place] [address] Phone Organization [facility] Phone Care Team Providers Care Pit Manager Name Role Phone [facility], Anna Primary Care Provider Unav ailable Unavailable Chronic Care Management Unavaila ble Summary Purpose DataExchange Insurance Providers Payer name Policy type / Coverage type Covered democrat ID Effective Begin Date Effective End Date [facility] [id number] Unknown Unknown Family history Mother Diagnosis Age [...] 05/31/2018 Education level Unknown Some High School 10th05/31/20183004ExpgpnrgolPsgfzaxTrbdhhivto60/29/2018Tobacco historySNOMED CT: 153729706Psi never smoked or chewed whcshwy3105/31/2018Alcohol historySNOMED CT: 783913074Fvgxa drinks otvobvv6505/31/2018Has the patient ever used illegal drugs? UnknownHas never used illegal drugs05/31/2018DNR Order/ Advanced Directive UnknownFull Code05/31/2018 Allergies, Adverse Reactions, Alerts Substance Reaction Codes Entered Date Inactivated Date Status *No known food allergies Ribwclj5709/06/2018No Inactive DateActiveMethylprednisolonehivesRxNorm: 6902 09/06/2018No Inactive DateActive Problems Condition Codes Effective Dates Condition St atus Unspecified asthma, uncomplicated ICD-10 : J45.909 ICD-9: 493.9008/08/2018ActivePolyneuropathy, unspecifiedICD-10: G62.9 ICD-9: 356.908/ActivePatient Not SeenICD-10: UXZ.01 ICD-9: XZ0.107/ActiveEncounter for immunizationICD-10: Z23 ICD-9: V03.907/ActiveEncounter for screening for malignant neoplasm of cervixICD-10: Z12.4 ICD-9: V76.207/ActiveHypertensive heart disease with heart failureICD-10: I11.0 ICD-9: 402.9107/ActiveOther alf (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ICD-10: Z79.899 ICD-9: V58.6907ActiveType 2 diabetes mellitus without complicationsICD- 10: E11.9 ICD-9: 250.0001ActiveApnea, not elsewhere classifiedICD-10: R06.81 ICD-9: 786.0305ActiveBody mass index (BMI) 50-59.9 , adultICD-10: Z68.43 ICD-9: V85.4308ActiveChest pain, unspecifiedICD-10: R07.9 ICD-9: 786.5002ActiveEncounter for preprocedural cardiovascular examinationICD-10: Z01.810 ICD-9: V72.8106ActiveEssential (primary) hypertensionICD-10: I10 ICD-9: 401.901ActiveDyspnea, unspecifiedICD-10: R06.00 ICD-9: 786.0905ActivePost-traumatic stress disorder, unspecifiedICD-10: F43.10 ICD-9: 309.8112ActiveWheezingICD-10: R06.2 ICD-9: 786.0711ActiveAbnormal electrocardiogram [ECG] [EKG]ICD-10: R94.31 ICD-9: 794.3108/ActiveEdema, unspecifiedICD-10: R60.9 ICD-9: 782.310ActiveHypothyroidism, unspecifiedICD-10: E03.9 ICD-9: [...] Fill Instructions gabapentin 300 mg capsule RxNorm: 186404 1 Capsule(s) PO TID 05/03/20 19 2018 Inactive Flintstones Complete (iron) 18 mg iron chewable tablet RxNorm: 1 Tablet(s) PO daily 04/04/20 19 2021 Inactive This refill negates all other refills of this medication True Metrix Glucose Test Strip RxNorm: 1 Test Strips Miscellaneous [facility] 02/01/20 19 2018 Inactive 100/container Alcohol Prep Pads RxNorm: 302855 1 Patch TOP QA 02/01/20 19 2018 Inactive TRUEplus Lancets 30 gauge RxNorm: 1 Lancets Miscellaneous [facility] 02/01/20 19 2018 Inactive 100/box gabapentin 300 mg capsule RxNorm: 197922 1 Capsule(s) PO TID as needed 02/01/20 19 2018 Inactive lisinopril 2.5 mg tablet RxNorm: 771811 1 Tablet(s) PO daily 12/28/19 19 2018 Inactive buspirone 7.5 mg tablet RxNorm: 008122 1 Tablet(s) PO BID 10/21/19 19 2018 Inactive This refill negates all other refills of this medication ranitidine 150 mg tablet RxNorm: 213811 1 Tablet(s) PO BID 10/21/19 19 2018 Inactive This refill negates all other refills of this medication albuterol sulfate 2.5 mg/3 mL (0.083 %) solution for nebulization RxNorm: 698143 1 Vial INH QID 10/21/19 19 2018 [...] this medication gabapentin 300 mg capsule RxNorm: 383402 1 Capsule(s) PO TID as needed 10/21/19 19 2018 Inactive atorvastatin 20 mg tablet RxNorm: 344191 1 Tablet(s) PO QHS 10/21/192018 Inactive This refill negates all other refills of this medication trazodone 50 mg tablet RxNorm: 899840 1 Tablet(s) PO QHS 10/21/192018 Inactive This refill negates all other refills of this medication Ventolin HFA 90 mcg/actuation aerosol inhaler RxNorm: 740706 2 Puff(s) INH QID 10/21/192018 Inactive Please do not fill early. Please do not auto refill. This refill negates all other refills of this medication Calcium 600-D3 Plus 600 mg calcium-800 unit-50 mg tablet RxNorm: 1 Tablet(s) PO daily take an additonal tablet for itching. 10/21/19 19 2018 Inactive This refill negates all other refills of this medication Singulair 10 mg tablet RxNorm: 911342 1 Tablet(s) PO daily 10/21/19 19 2018 Inactive This refill negates all other refills of this medication diclofenac sodium 75 mg tablet,delayed release RxNorm: 233793 1 Tablet(s) PO BID 10/21/19 19 2018 Inactive This refill negates all other refills of this medication hydrochlorothiazide 12.5 mg tablet RxNorm: 406865 1 Tablet(s) PO QAM 10/21/19 19 2018 Inactive metoprolol succinate ER 50 mg tablet,extended release 24 hr RxNorm: 654537 1 Tablet(s) PO daily 10/21/19 19 2018 Inactive This refill negates all other refills of this medication levothyroxine 50 mcg tablet RxNorm: 826239 1 Tablet(s) PO daily 10/21/192018 Inactive This refill negates all other refills of this medication cetirizine 10 mg tablet RxNorm: 0589741 1 Tablet(s) PO daily 10/21/192018 Inactive This refill negates all other refills of this medication. Please do not auto refill Flintstones Complete (iron) 18 mg iron chewable tablet RxNorm: 1 Tablet(s) PO daily 10/21/192018 Inactive This refill negates all other refills of this medication buspirone 7.5 mg tablet RxNorm: 077519 1 Tablet(s) PO BID 10/12/192018 Inactive cetirizine 10 mg tablet RxNorm: 2954085 1 Tablet(s) PO daily 09/28/202018 Inactive Guaiasorb DM 10 mg-100 mg/5 mL oral liquid RxNorm: 295091 10 Milliliter(s) PO As needed every 4 hr 09/24/202018 Inactive Vicks Vaporub 4.7 %-1.2 %-2.6 % topical ointment RxNorm: 8345847 1 Application TOP TID 09/24/20 18 2018 Inactive levmetamfetamine 50 mg nasal inhaler RxNorm: 1 Unit(s) NASAL Q3-4H 09/24/20 18 2017 Inactive sertraline 50 mg tablet RxNorm: 317918 1 Tablet(s) PO daily 09/09/20 18 2018 Inactive Please note dose trazodone 50 mg tablet RxNorm: 706288 1 Tablet(s) PO QHS 09/06/20 18 2018 Inactive sertraline 50 mg tablet RxNorm: 285024 1 Tablet(s) PO daily 09/06/20 18 2017 Inactive amoxicillin 500 mg tablet RxNorm: 296472 1 Tablet(s) PO Q12H 08/31/20 18 2017 Inactive albuterol sulfate 2.5 mg/3 mL (0.083 %) solution for nebulization RxNorm: 276657 1 Vial INH QID 08/10/20 18 2018 Inactive 60/box. Please do not fill early. Please do not auto refill. Prozac 10 mg capsule RxNorm: 038292 1 Capsule(s) PO daily 08/09/20 18 2017 Inactive buspirone 7.5 mg tablet RxNorm: 917079 1 Tablet(s) PO BID 08/09/20 18 2018 Inactive gabapentin 300 mg capsule RxNorm: 582467 1 Capsule(s) PO TID as needed 08/01/20 18 2018 Inactive hydrochlorothiazide 12.5 mg tablet RxNorm: 895477 1 Tablet(s) PO QAM 08/01/20 18 2018 Inactive ranitidine 150 mg tablet RxNorm: 881228 1 Tablet(s) PO BID 08/01/20 18 2018 Inactive Macrobid 100 mg capsule RxNorm: 320847 1 Capsule(s) PO Q12H 06/21/20 18 2017 Inactive Singulair 10 mg tablet RxNorm: 767102 1 Tablet(s) PO daily 06/14/20 18 2018 Inactive Ventolin HFA 90 mcg/actuation aerosol inhaler RxNorm: 4976716 2 Puff(s) INH QID 06/14/20 18 2018 Inactive Singulair 10 mg tablet RxNorm: 478866 1 Tablet(s) PO daily 06/14/20 18 2017 Inactive buspirone 7.5 mg tablet RxNorm: 865291 1 Tablet(s) PO BID 06/14/20 18 2017 Inactive Prozac 10 mg capsule RxNorm: 619222 1 Capsule(s) PO daily 06/14/20 18 2017 Inactive Neilmed Pediatric Sinus Rinse Refill packet RxNorm: 1 Unit Dose NASAL PRN 05/31/20 18 2021 Inactive diclofenac sodium 75 mg tablet,delayed release RxNorm: 022567 1 Tablet(s) PO BID 05/31/20 18 2017 Inactive lisinopril 2.5 mg tablet RxNorm: 289387 1 Tablet(s) PO daily 05/31/20 18 2017 Inactive metoprolol succinate ER 50 mg tablet,extended release 24 hr RxNorm: 355693 1 Tablet(s) PO daily 05/31/20 18 2017 Inactive levothyroxine 50 mcg tablet RxNorm: 590316 1 Tablet(s) PO daily 05/31/20 18 2017 Inactive TRUEplus Lancets 30 gauge RxNorm: 1 Lancets Miscellaneous QAM 05/31/20 18 2017 Inactive 100/box Ventolin HFA 90 mcg/actuation aerosol inhaler RxNorm: 331453 2 Puff(s) INH QID 05/31/20 18 2017 Inactive Aleve 220 mg capsule RxNorm: 2603517 1 Capsule(s) PO BID 05/31/20 18 2018 Inactive ranitidine 150 mg tablet RxNorm: 218368 1 Tablet(s) PO BID 05/31/20 18 2017 Inactive gabapentin 300 mg capsule RxNorm: 308076 1 Capsule(s) PO TID as needed 05/31/20 18 2017 Inactive atorvastatin 20 mg tablet RxNorm: 594214 1 Tablet(s) PO QHS 05/31/20 18 2017 Inactive True Metrix Glucose Test Strip RxNorm: 1 Test Strips Miscellaneous QAM 05/31/20 18 2017 Inactive 50/container Calcium 600-D3 Plus 600 mg calcium-800 unit-50 mg tablet RxNorm: 1 Tablet(s) PO daily take an additonal tablet for itching. 05/31/20 18 2017 Inactive hydrochlorothiazide 12.5 mg tablet RxNorm: 803772 1 Tablet(s) PO QAM 05/31/20 18 2017 Inactive Flintstones Complete (iron) 18 mg iron chewable tablet RxNorm: 1 Tablet(s) PO daily 05/31/20 18 2017 Inactive True Metrix Glucose Meter RxNorm: miscellaneous 08/17/20 19 2018 Inactive sertraline 50 mg tablet RxNorm: 303488 1 Tablet(s) PO daily 11/28/19 20 2019 Inactive loperamide 2 mg tablet RxNorm: 427321 oral 09/29/20 19 2018 Inactive d-mannose oral powder RxNorm: PO 18 2021 Inactive Symbicort 160 mcg-4.5 mcg/actuation HFA aerosol inhaler RxNorm: 7040241 2 Puff(s) INH BID 08/17/202018 Inactive Medication Administered No Medication Administered data Procedures Procedure Codes Date AHA/REBECCA Classification Assessment CPT-4: DAHA 04/25/2019 Controlled Substance Report CPT-4: CTRSU 04/03 Urinalysis, dip stick CPT-4: 97681 03/28/[address]: 203014928 CPT-4: [id number] Reason For Visit No Reason For Visit data Plan of Care Planned Activity Notes Codes Status Date Patient Education: Patient Medication Summary Czxoofred64/20/2019Care Plan: Oxygen MquhczXimqytd11/20/2019Appointment: Office, DwrdrdR80833/26/2019Appointment: Charlene Oropeza WPtel: [address] [facility] [id number]: Rasta Palafox WPtel: [address] [facility] [id number]: Rasta Palafox WPtel: [address] [facility] [id number]: Rasta Palafox WPtel: [address] [facility] [address] [id number]: Rasta Palafox WPtel: [address] [facility] [address] [id number]: Pending Gynecology Referral InformationReferral ProcessedReferral: Pending Pulmonology Referral InformationReferralProcessed Referral: Pending Psychiatry Referral InformationReferralInitiatedReferral: Pending Respiratory Services Referral InformationReferralInitiatedReferral: Pending Ophthalmology Referral InformationReferralInitiatedReferral: [facility] WPtel: [address] [place] [address] USWriter placed a call out to the patient to notify her that it has been recommended that she be seenby 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 Patient agreed to be seen, does not have a provider of choice and no transportationissues. Harp Regulator faxed referral and clinical notes to [facility] in [place], [place] near the patient's home. Patient to [...] seen and prefers a provider in the [place] or [place] area. Harp Regulator placed a call out to everyone listed in the area and the only location that was able to accept the patient's insurance was [place] [address] [place] [address] and spoke with Maylin. Maylin asked that the patient's referral, face sheet and visit notes be faxed to . Harp Regulator faxed over requested documents. Patient appointment confirmation letter generated and mailed to her home address. Patient to call to schedule an appointment.ProcessedReferral: [facility] WPtel: [address] [facility] [address] [id number] USPatient notified that it has been advised that she be seen by Neurology. Patient agreed to be seen and prefers to be seen by a provider in the [place], [place] area. Patient denies any concerns with transportation, and prefers to schedule her own appointment. Harp Regulator placed a call out to [facility] and spoke with Neeraj P: who confirmed that their office is able to acceptnew patients and the patient's insurance. After confirming the providers fax number, investment underwriter faxed over the patient's referral, and [...]
--- OUTSIDE RECORDS SUMMARY | 2019-05-23 20:00 | XMS_ITS | CCD ---
Author Name Dr Lacey Oropeza DO Address [address] [place] [address] Phone Organization [facility] Phone Care Team Providers Care Digital Production Manager Name Role Phone Palomo DONOR RECRUITER, Anna Primary Care Provider Unav ailable Unavailable Chronic Care Management Unavaila ble Summary Purpose DataExchange Insurance Providers Payer name Policy type / Coverage type Covered alliance party ID Effective Begin Date Effective End Date [facility] [employer] [id number] Unknown Unknown Family history Mother Diagnosis Age [...] 05/31/2018 Education level Unknown Some High School 10th05/31/20184239HnysdyjtbxVnodxwmLjbbipjaib89/29/2018Tobacco historySNOMED CT: 886259284Cly never smoked or chewed bsatucf2305/31/2018Alcohol historySNOMED CT: 186120342Mojyo drinks bjjobat6905/31/2018Has the patient ever used illegal drugs? UnknownHas never used illegal drugs05/31/2018DNR Order/ Advanced Directive UnknownFull Code05/31/2018 Allergies, Adverse Reactions, Alerts Substance Reaction Codes Entered Date Inactivated Date Status *No known food allergies Jvlhajt1009/06/2018No Inactive DateActiveMethylprednisolonehivesRxNorm: 6902 09/06/2018No Inactive DateActive Problems Condition Codes Effective Dates Condition St atus Apnea, not elsewhere classified ICD-10: R06.81 ICD-9: 786.0305ActiveEncounter for immunizationICD-10: Z23 ICD-9: V03.907/ActiveEncounter for screening, unspecifiedICD-10: Z13.9 ICD-9: V82.912ActiveEssential (primary) hypertensionICD-10: I10 ICD-9: 401.901ActiveHyperlipidemia, unspecifiedICD-10: E78.5 ICD-9: 272.408/ActiveHypothyroidism, unspecifiedICD-10: E03.9 ICD-9: 244.912ActiveMixed incontinenceICD-10: N39.46 ICD-9: 788.3308ActiveType 2 diabetes mellitus without complicationsICD- 10: E11.9 ICD-9: 250.0001ActiveUnspecified asthma, uncomplicatedICD-10: J45.909 ICD-9: 493.9011ActivePolyneuropathy, unspecifiedICD-10: G62.9 ICD-9: 356.908ActivePatient Not SeenICD-10: UXZ.01 ICD-9: XZ0.107ActiveEncounter for screening for malignant neoplasm of cervixICD-10: Z12.4 ICD-9: V76.207/ActiveHypertensive heart disease with heart failureICD-10: I11.0 ICD-9: 402.9107ActiveOther jail (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ICD-10: Z79.899 ICD-9: V58.6907/ActiveBody mass index (BMI) 50-59.9 , adultICD-10: Z68.43 ICD-9: V85.4308ActiveChest pain, unspecifiedICD-10: R07.9 ICD-9: 786.5002ActiveEncounter for preprocedural cardiovascular examinationICD-10: Z01.810 ICD-9: V72.8106/ActiveDyspnea, unspecifiedICD-10: R06.00 ICD-9: 786.0905ActivePost-traumatic stress disorder, unspecifiedICD-10: F43.10 ICD-9: 309.8112ActiveWheezingICD-10: R06.2 ICD-9: 786.0711ActiveAbnormal electrocardiogram [ECG] [EKG]ICD-10: R94.31 ICD-9: 794.31005/30/2018ActiveEdema, unspecifiedICD-10: R60.9 ICD-9: 782.310ActiveAdjustment disorder with mixed anxiety and depressed moodICD-10: F43.23 ICD-9: 309.28111/06/2017ActiveHeadacheICD-10: R51 ICD-9: 784.ActiveAcute upper respiratory infection, unspecifiedICD- 10: J06.9 ICD-9: 465.9111/24/2017ResolvedChronic kidney disease, unspecifiedICD-10: N18.9 ICD-9: 585.9010/03/2018ResolvedLong term (current) use of non-steroidal anti- inflammatories (NSAID)ICD-10: Z79.1 ICD-9: V58.64006/13/2018Active Medications Medication Codes Instructions Start Date Stop Date Status Fill Instructions gabapentin 300 mg capsule RxNorm: 434073 1 Capsule(s) PO TID 05/03/20 19 2018 Inactive Flintstones Complete (iron) 18 mg iron chewable tablet RxNorm: 1 Tablet(s) PO daily 04/04/202021 Inactive This refill negates all other refills of this medication True Metrix Glucose Test Strip RxNorm: [address] [facility] 02/01/202018 Inactive 100/container Alcohol Prep Pads RxNorm: 669457 [address] [facility] 02/01/202018 Inactive TRUEplus Lancets 30 gauge RxNorm: 1 Lancets Miscellaneous QA 02/01/202018 Inactive 100/box gabapentin 300 mg capsule RxNorm: 957159 1 Capsule(s) PO TID as needed 02/01/20 19 2018 Inactive lisinopril 2.5 mg tablet RxNorm: 147463 1 Tablet(s) PO daily 12/28/19 19 2018 Inactive buspirone 7.5 mg tablet RxNorm: 842083 1 Tablet(s) PO BID 10/21/19 19 2018 Inactive This refill negates all other refills of this medication ranitidine 150 mg tablet RxNorm: 311266 1 Tablet(s) PO BID 10/21/192018 Inactive This refill negates all other refills of this medication albuterol sulfate 2.5 mg/3 mL (0.083 %) solution for nebulization RxNorm: 106353 1 Vial INH QID 10/21/192018 Inactive 60/box. [...] this medication gabapentin 300 mg capsule RxNorm: 915894 1 Capsule(s) PO TID as needed 10/21/19 19 2018 Inactive atorvastatin 20 mg tablet RxNorm: 437026 1 Tablet(s) PO QHS 10/21/19 19 2018 Inactive This refill negates all other refills of this medication trazodone 50 mg tablet RxNorm: 884769 1 Tablet(s) PO QHS 10/21/192018 Inactive This refill negates all other refills of this medication Ventolin HFA 90 mcg/actuation aerosol inhaler RxNorm: 972857 2 Puff(s) INH QID 10/21/192018 Inactive Please do not fill early. Please do not auto refill. This refill negates all other refills of this medication Calcium 600-D3 Plus 600 mg calcium-800 unit-50 mg tablet RxNorm: 1 Tablet(s) PO daily take an additonal tablet for itching. 10/21/192018 Inactive This refill negates all other refills of this medication Singulair 10 mg tablet RxNorm: 420546 1 Tablet(s) PO daily 10/21/19 19 2018 Inactive This refill negates all other refills of this medication diclofenac sodium 75 mg tablet,delayed release RxNorm: 396667 1 Tablet(s) PO BID 10/21/19 19 2018 Inactive This refill negates all other refills of this medication hydrochlorothiazide 12.5 mg tablet RxNorm: 138733 1 Tablet(s) PO QAM 10/21/19 19 2018 Inactive metoprolol succinate ER 50 mg tablet,extended release 24 hr RxNorm: 646712 1 Tablet(s) PO daily 10/21/19 19 2018 Inactive This refill negates all other refills of this medication levothyroxine 50 mcg tablet RxNorm: 792907 1 Tablet(s) PO daily 10/21/192018 Inactive This refill negates all other refills of this medication cetirizine 10 mg tablet RxNorm: 2498266 1 Tablet(s) PO daily 10/21/192018 Inactive This refill negates all other refills of this medication. Please do not auto refill Flintstones Complete (iron) 18 mg iron chewable tablet RxNorm: 1 Tablet(s) PO daily 10/21/192018 Inactive This refill negates all other refills of this medication buspirone 7.5 mg tablet RxNorm: 666902 1 Tablet(s) PO BID 10/12/192018 Inactive cetirizine 10 mg tablet RxNorm: 6573175 1 Tablet(s) PO daily 09/28/202018 Inactive Guaiasorb DM 10 mg-100 mg/5 mL oral liquid RxNorm: 462184 10 Milliliter(s) PO As needed every 4 hr 09/24/202018 Inactive Vicks Vaporub 4.7 %-1.2 %-2.6 % topical ointment RxNorm: 1812254 1 Application TOP TID 09/24/20 18 2018 Inactive levmetamfetamine 50 mg nasal inhaler RxNorm: 1 Unit(s) NASAL Q3-4H 09/24/20 18 2017 Inactive sertraline 50 mg tablet RxNorm: 755487 1 Tablet(s) PO daily 09/09/20 18 2018 Inactive Please note dose trazodone 50 mg tablet RxNorm: 437112 1 Tablet(s) PO QHS 09/06/20 18 2018 Inactive sertraline 50 mg tablet RxNorm: 064398 1 Tablet(s) PO daily 09/06/20 18 2017 Inactive amoxicillin 500 mg tablet RxNorm: 564626 1 Tablet(s) PO Q12H 08/31/20 18 2017 Inactive albuterol sulfate 2.5 mg/3 mL (0.083 %) solution for nebulization RxNorm: 637595 1 Vial INH QID 08/10/20 18 2018 Inactive 60/box. Please do not fill early. Please do not auto refill. Prozac 10 mg capsule RxNorm: 777172 1 Capsule(s) PO daily 08/09/20 18 2017 Inactive buspirone 7.5 mg tablet RxNorm: 044567 1 Tablet(s) PO BID 08/09/20 18 2018 Inactive gabapentin 300 mg capsule RxNorm: 429410 1 Capsule(s) PO TID as needed 08/01/20 18 2018 Inactive hydrochlorothiazide 12.5 mg tablet RxNorm: 814331 1 Tablet(s) PO QAM 08/01/20 18 2018 Inactive ranitidine 150 mg tablet RxNorm: 683991 1 Tablet(s) PO BID 08/01/20 18 2018 Inactive Macrobid 100 mg capsule RxNorm: 629922 1 Capsule(s) PO Q12H 06/21/20 18 2017 Inactive Singulair 10 mg tablet RxNorm: 185119 1 Tablet(s) PO daily 06/14/20 18 2018 Inactive Ventolin HFA 90 mcg/actuation aerosol inhaler RxNorm: 0141424 2 Puff(s) INH QID 06/14/20 18 2018 Inactive Singulair 10 mg tablet RxNorm: 358537 1 Tablet(s) PO daily 06/14/20 18 2017 Inactive buspirone 7.5 mg tablet RxNorm: 290146 1 Tablet(s) PO BID 06/14/20 18 2017 Inactive Prozac 10 mg capsule RxNorm: 335242 1 Capsule(s) PO daily 06/14/20 18 2017 Inactive Neilmed Pediatric Sinus Rinse Refill packet RxNorm: 1 Unit Dose NASAL PRN 05/31/20 18 2021 Inactive diclofenac sodium 75 mg tablet,delayed release RxNorm: 993237 1 Tablet(s) PO BID 05/31/20 18 2017 Inactive lisinopril 2.5 mg tablet RxNorm: 616156 1 Tablet(s) PO daily 05/31/20 18 2017 Inactive metoprolol succinate ER 50 mg tablet,extended release 24 hr RxNorm: 646452 1 Tablet(s) PO daily 05/31/20 18 2017 Inactive levothyroxine 50 mcg tablet RxNorm: 053432 1 Tablet(s) PO daily 05/31/20 18 2017 Inactive TRUEplus Lancets 30 gauge RxNorm: 1 Lancets Miscellaneous QAM 05/31/20 18 2017 Inactive 100/box Ventolin HFA 90 mcg/actuation aerosol inhaler RxNorm: 006107 2 Puff(s) INH QID 05/31/20 18 2017 Inactive Aleve 220 mg capsule RxNorm: 8005472 1 Capsule(s) PO BID 05/31/20 18 2018 Inactive ranitidine 150 mg tablet RxNorm: 373179 1 Tablet(s) PO BID 05/31/20 18 2017 Inactive gabapentin 300 mg capsule RxNorm: 136505 1 Capsule(s) PO TID as needed 05/31/20 18 2017 Inactive atorvastatin 20 mg tablet RxNorm: 197138 1 Tablet(s) PO QHS 05/31/20 18 2017 Inactive True Metrix Glucose Test Strip RxNorm: 1 Test Strips Miscellaneous QAM 05/31/20 18 2017 Inactive 50/container Calcium 600-D3 Plus 600 mg calcium-800 unit-50 mg tablet RxNorm: 1 Tablet(s) PO daily take an additonal tablet for itching. 05/31/20 18 2017 Inactive hydrochlorothiazide 12.5 mg tablet RxNorm: 013191 1 Tablet(s) PO QAM 05/31/20 18 2017 Inactive Flintstones Complete (iron) 18 mg iron chewable tablet RxNorm: 1 Tablet(s) PO daily 05/31/20 18 2017 Inactive True Metrix Glucose Meter RxNorm: miscellaneous 08/17/20 19 2018 Inactive sertraline 50 mg tablet RxNorm: 124584 1 Tablet(s) PO daily 11/28/19 20 2019 Inactive loperamide 2 mg tablet RxNorm: 418811 oral 09/29/20 19 2018 Inactive d-mannose oral powder RxNorm: PO 18 2021 Inactive Symbicort 160 mcg-4.5 mcg/actuation HFA aerosol inhaler RxNorm: 9015899 2 Puff(s) INH BID 08/17/20 19 2018 Inactive Medication Administered No Medication Administered data Procedures Procedure Codes Date Tobacco Assessment/Screening CPT-4: TCA Patient Health Questionnaire CPT-4: DPHQ PNEUMOCOCCAL VACC 13 JUNO IM CPT-4: 07875 05/04 Patient Health Questionnaire Little interest or pleasure in doing things?/0 = Not at all, Feeling down, depressed or hopeless?/0= Not at all, Trouble falling or staying asleep, or sleeping too much?/0 = Not at all, Feeling tired or having little energy?/1 = Several days, Poor appetite or overeating?/0 = Not at all, Feeling bad about yourself or that you're a failure or that you have let yourself or family down?/0 = Not at all, Trouble concentrating on things, such as reading a newspaper or watching television?/0 = Not at all, Moving or speaking so slowly that other people noticed? Or the opposite?/0 = Not at all, Thoughts that you would be better off , or of hurting yourself in some way?/0 = Not at all, Score/1 = No depression; No action, Plan: Depression/Patient negative for depression. No plan indicatedCPT-4: AMTYRoqwxvm50/22/2019Tobacco Assessment/Screening Tobacco Use/Never used tobacco, Plan/No cessation intervention due to other medical reason N/ACPT-4: IRGZleqmbl39/22/2019Admin pneumococ vacCPT-4: G0009 05/24/2019AHA/REBECCA Classification AssessmentCPT-4: DAHA04/25/2019Controlled Substance ReportCPT-4: CTRSU04/25/2019Urinalysis, dip stickCPT-4: 33442 03/28/2019Gynecology ReferralSNOMED CT: 445122791 CPT-4: K52Twclzym Vital Signs Date Vital 05/24/2019 Blood Pressure 1: 110/68 Code: 8480-6 BMI: 56.8 Code: 73881-2 Heart Rate 1: 83 bpm Height: 4'11 Code: 8302-2 Respiratory Rate: 18 bpm SpO2: 99% Temperature: 36.5 (C) / 97.7 (F) Weight: 281 lbs Code: 65709-7 Reason For Visit Reason For Visit Effective Dates Notes diabetes mellitus 05/24/2019 hypothyroidism 05/24/2019 hyperlipidemia disease 05/24/2019 urinary urgency 05/24/2019 Encounters Encounter Performer Location Location Address Codes Magdi e HOME VISIT EST PATIENT Diagnosis: Mixed incontinence[ICD10: N39.46] Diagnosis: Type 2 diabetes mellitus without complications[ICD10: E11.9] Diagnosis: Hypothyroidism, unspecified[ICD10: E03.9] Diagnosis: Hyperlipidemia, unspecified[ICD10: E78.5] Diagnosis: Apnea, not elsewhere classified[ICD10: R06.81] Diagnosis: Essential (primary) hypertension[ICD10: I10] Diagnosis: Encounter for screening, unspecified[ICD10: Z13.9] Diagnosis: Encounter for immunization[ICD10: Z23][facility] Office [id number] [place] [address] [id number]: [id number] Plan of Care Planned Activity Notes Codes Status Date Patient Education: Patient Medication Summary Dlpqngauj54/22/2019Patient Education: NrypafkDracycyhs92/22/2019Patient Education: UdypsphiKsoixebmz63/22/2019Care Plan: Incontinence SuppliesOrdered 05/24/2019Care Plan: External Outpatient Sleep WfpxfZrxjtcs77/22/2019 Appointment: Danny, WtivomQ52379/26/2019Appointment: Charlene Oropeza WPtel: [address] [facility] [id number]: DaltonziggyRasta domínguez WPtel: [address] [facility] [id number]: DaltonziggyHema domínguezRasta WPtel: [address] [facility] [id number]: Hema Palafoxothy WPtel: [address] [facility] [id number]: DaltonziggyHema domínguezRasta WPtel: [address] [facility] [id number]: Pending Gynecology Referral InformationReferral ProcessedReferral: Pending Pulmonology Referral InformationReferralProcessed Referral: Pending Psychiatry Referral InformationReferralInitiatedReferral: Pending Respiratory Services Referral InformationReferralInitiatedReferral: Pending Ophthalmology Referral InformationReferralInitiatedReferral: [facility] WPtel: [address] USWriter placed a call out to the patient to notify her that it has been recommended that she be seenby 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 Patient agreed to be seen, does not have a provider of choice and no transportationissues. Cardiograph Operator faxed referral and clinical notes to [facility] in [place], [place] near the patient's home. Patient to [...] seen and prefers a provider in the [place] or [place] area. Cardiograph Operator placed a call out to everyone listed in the area and the only location that was able to accept the patient's insurance was [facility] [place] [address] and spoke with Maylin. Maylin asked that the patient's referral, face sheet and visit notes be faxed to . Cardiograph Operator faxed over requested documents. Patient appointment confirmation letter generated and mailed to her home address. Patient to call to schedule an appointment.ProcessedReferral: [facility] WPtel: [address] [place], [place] [id number] USPatient notified that it has been advised that she be seen by Neurology. Patient agreed to be seen and prefers to be seen by a provider in the [place], [place] area. Patient denies any concerns with transportation, and prefers to schedule her own appointment. Cardiograph Operator placed a call out to [facility] and spoke with Neeraj P: who confirmed that their office is able to acceptnew patients and the patient's insurance. After confirming the providers fax number, press writer faxed over the patient's referral, and [...]
--- OUTSIDE RECORDS SUMMARY | 2019-05-28 20:00 | XMS_ITS | CCD ---
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 Feed Mixer Name Role Phone Palomo KING, Anna Primary Care Provider Unav ailable Unavailable Chronic Care Management Unavaila ble Summary Purpose DataExchange Insurance Providers Payer name Policy type / Coverage type Covered constitution party ID Effective Begin Date Effective End Date SUKI BUTTS [facility] [id number] Unknown Unknown Family history Mother Diagnosis Age [...] 05/31/2018 Education level Unknown Some High School 10th05/31/20185860IljnlkzmzaUlxglnyNdvocuyovd69/29/2018Tobacco historySNOMED CT: 645586664Uug never smoked or chewed [id number]/31/2018Alcohol historySNOMED CT: 885637597Yhzvh drinks [id number]/31/2018Has the patient ever used illegal drugs? UnknownHas never used illegal drugs05/31/2018DNR Order/ Advanced Directive UnknownFull Code05/31/2018 Allergies, Adverse Reactions, Alerts Substance Reaction Codes Entered Date Inactivated Date Status *No known food allergies Nmuhrre3509/06/2018No Inactive DateActiveMethylprednisolonehivesRxNorm: 6902 09/06/2018No Inactive DateActive Problems Condition Codes Effective Dates Condition St atus Apnea, not elsewhere classified ICD-10: R06.81 ICD-9: 786.0305/10/2018ActiveEncounter for immunizationICD-10: Z23 ICD-9: V03.907ActiveEncounter for screening, unspecifiedICD-10: Z13.9 ICD-9: V82.912ActiveEssential (primary) hypertensionICD-10: I10 ICD-9: 401.901/10/2018ActiveHyperlipidemia, unspecifiedICD-10: E78.5 ICD-9: 272.408/ActiveHypothyroidism, unspecifiedICD-10: E03.9 ICD-9: 244.912ActiveMixed incontinenceICD-10: N39.46 ICD-9: 788.3308ActiveType 2 diabetes mellitus without complicationsICD- 10: E11.9 ICD-9: 250.0001ActiveUnspecified asthma, uncomplicatedICD-10: J45.909 ICD-9: 493.9011ActivePolyneuropathy, unspecifiedICD-10: G62.9 ICD-9: 356.908ActivePatient Not SeenICD-10: UXZ.01 ICD-9: XZ0.107ActiveEncounter for screening for malignant neoplasm of cervixICD-10: Z12.4 ICD-9: V76.207ActiveHypertensive heart disease with heart failureICD-10: I11.0 ICD-9: 402.9107ActiveOther residential (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ICD-10: Z79.899 ICD-9: V58.6907ActiveBody mass index (BMI) 50-59.9 , adultICD-10: Z68.43 ICD-9: V85.4308ActiveChest pain, unspecifiedICD-10: R07.9 ICD-9: 786.5002ActiveEncounter for preprocedural cardiovascular examinationICD-10: Z01.810 ICD-9: V72.8106ActiveDyspnea, unspecifiedICD-10: R06.00 ICD-9: 786.0905ActivePost-traumatic stress disorder, unspecifiedICD-10: F43.10 ICD-9: 309.8112ActiveWheezingICD-10: R06.2 ICD-9: 786.0711ActiveAbnormal electrocardiogram [ECG] [EKG]ICD-10: R94.31 ICD-9: 794.3108ActiveEdema, unspecifiedICD-10: R60.9 ICD-9: 782.310ActiveAdjustment disorder with mixed anxiety and depressed moodICD-10: F43.23 ICD-9: 309.2812ActiveHeadacheICD-10: R51 ICD-9: 784.001ActiveAcute upper respiratory infection, unspecifiedICD- 10: J06.9 ICD-9: 465.912ResolvedChronic kidney disease, unspecifiedICD-10: N18.9 ICD-9: 585.901ResolvedLong term (current) use of non-steroidal anti- inflammatories (NSAID)ICD-10: Z79.1 ICD-9: V58.64006/13/2018Active Medications Medication Codes Instructions Start Date Stop Date Status Fill Instructions TRUEplus Lancets 30 gauge RxNorm: 1 Lancets Miscellaneous QA 05/29/202018 Inactive 100/box gabapentin 300 mg capsule RxNorm: 781165 1 Capsule(s) PO TID 05/03/20 19 2018 Inactive César Complete (iron) 18 mg iron chewable tablet RxNorm: 1 Tablet(s) PO daily 04/04/20 19 2021 Inactive This refill negates all other refills of this medication True Metrix Glucose Test Strip RxNorm: 1 Test Strips Miscellaneous QA 02/01/202018 Inactive 100/container Alcohol Prep Pads RxNorm: 946697 1 Patch TOP QAM 02/01/202018 Inactive gabapentin 300 mg capsule RxNorm: 138980 1 Capsule(s) PO TID as needed 02/01/20 19 2018 Inactive TRUEplus Lancets 30 gauge RxNorm: 1 Lancets Miscellaneous QAM 02/01/20 19 2018 Inactive 100/box lisinopril 2.5 mg tablet RxNorm: 045315 1 Tablet(s) PO daily 12/28/19 19 2018 Inactive buspirone 7.5 mg tablet RxNorm: 462476 1 Tablet(s) PO BID 10/21/19 19 2018 Inactive This refill negates all other refills of this medication ranitidine 150 mg tablet RxNorm: 462075 1 Tablet(s) PO BID 10/21/19 19 2018 Inactive This refill negates all other refills of this medication albuterol sulfate 2.5 mg/3 mL (0.083 %) solution for nebulization RxNorm: 571431 1 Vial INH QID 10/21/19 19 2018 [...] this medication gabapentin 300 mg capsule RxNorm: 272092 1 Capsule(s) PO TID as needed 10/21/19 19 2018 Inactive atorvastatin 20 mg tablet RxNorm: 428073 1 Tablet(s) PO QHS 10/21/19 19 2018 Inactive This refill negates all other refills of this medication trazodone 50 mg tablet RxNorm: 080491 1 Tablet(s) PO QHS 10/21/192018 Inactive This refill negates all other refills of this medication Ventolin HFA 90 mcg/actuation aerosol inhaler RxNorm: 989569 2 Puff(s) INH QID 10/21/192018 Inactive Please do not fill early. Please do not auto refill. This refill negates all other refills of this medication Calcium 600-D3 Plus 600 mg calcium-800 unit-50 mg tablet RxNorm: 1 Tablet(s) PO daily take an additonal tablet for itching. 10/21/19 19 2018 Inactive This refill negates all other refills of this medication Singulair 10 mg tablet RxNorm: 493027 1 Tablet(s) PO daily 10/21/19 19 2018 Inactive This refill negates all other refills of this medication diclofenac sodium 75 mg tablet,delayed release RxNorm: 978854 1 Tablet(s) PO BID 10/21/19 19 2018 Inactive This refill negates all other refills of this medication hydrochlorothiazide 12.5 mg tablet RxNorm: 642374 1 Tablet(s) PO QAM 10/21/19 19 2018 Inactive metoprolol succinate ER 50 mg tablet,extended release 24 hr RxNorm: 265417 1 Tablet(s) PO daily 10/21/19 19 2018 Inactive This refill negates all other refills of this medication levothyroxine 50 mcg tablet RxNorm: 417084 1 Tablet(s) PO daily 10/21/19 19 2018 Inactive This refill negates all other refills of this medication cetirizine 10 mg tablet RxNorm: 8090427 1 Tablet(s) PO daily 10/21/192018 Inactive This refill negates all other refills of this medication. Please do not auto refill Flintstones Complete (iron) 18 mg iron chewable tablet RxNorm: 1 Tablet(s) PO daily 10/21/192018 Inactive This refill negates all other refills of this medication buspirone 7.5 mg tablet RxNorm: 162141 1 Tablet(s) PO BID 10/12/192018 Inactive cetirizine 10 mg tablet RxNorm: 9841729 1 Tablet(s) PO daily 09/28/202018 Inactive Guaiasorb DM 10 mg-100 mg/5 mL oral liquid RxNorm: 594236 10 Milliliter(s) PO As needed every 4 hr 09/24/202018 Inactive Vicks Vaporub 4.7 %-1.2 %-2.6 % topical ointment RxNorm: 3505676 1 Application TOP TID 09/24/20 18 2018 Inactive levmetamfetamine 50 mg nasal inhaler RxNorm: 1 Unit(s) NASAL Q3-4H 09/24/20 18 2017 Inactive sertraline 50 mg tablet RxNorm: 820668 1 Tablet(s) PO daily 09/09/20 18 2018 Inactive Please note dose trazodone 50 mg tablet RxNorm: 678627 1 Tablet(s) PO QHS 09/06/20 18 2018 Inactive sertraline 50 mg tablet RxNorm: 549916 1 Tablet(s) PO daily 09/06/20 18 2017 Inactive amoxicillin 500 mg tablet RxNorm: 303292 1 Tablet(s) PO Q12H 08/31/20 18 2017 Inactive albuterol sulfate 2.5 mg/3 mL (0.083 %) solution for nebulization RxNorm: 059491 1 Vial INH QID 08/10/20 18 2018 Inactive 60/box. Please do not fill early. Please do not auto refill. Prozac 10 mg capsule RxNorm: 273102 1 Capsule(s) PO daily 08/09/20 18 2017 Inactive buspirone 7.5 mg tablet RxNorm: 973101 1 Tablet(s) PO BID 08/09/20 18 2018 Inactive gabapentin 300 mg capsule RxNorm: 228698 1 Capsule(s) PO TID as needed 08/01/20 18 2018 Inactive hydrochlorothiazide 12.5 mg tablet RxNorm: 385644 1 Tablet(s) PO QAM 08/01/20 18 2018 Inactive ranitidine 150 mg tablet RxNorm: 876591 1 Tablet(s) PO BID 08/01/20 18 2018 Inactive Macrobid 100 mg capsule RxNorm: 408445 1 Capsule(s) PO Q12H 06/21/20 18 2017 Inactive Singulair 10 mg tablet RxNorm: 731534 1 Tablet(s) PO daily 06/14/20 18 2018 Inactive Ventolin HFA 90 mcg/actuation aerosol inhaler RxNorm: 5502962 2 Puff(s) INH QID 06/14/20 18 2018 Inactive Singulair 10 mg tablet RxNorm: 429584 1 Tablet(s) PO daily 06/14/20 18 2017 Inactive buspirone 7.5 mg tablet RxNorm: 628916 1 Tablet(s) PO BID 06/14/20 18 2017 Inactive Prozac 10 mg capsule RxNorm: 039564 1 Capsule(s) PO daily 06/14/20 18 2017 Inactive Neilmed Pediatric Sinus Rinse Refill packet RxNorm: 1 Unit Dose NASAL PRN 05/31/20 18 2021 Inactive diclofenac sodium 75 mg tablet,delayed release RxNorm: 458473 1 Tablet(s) PO BID 05/31/20 18 2017 Inactive lisinopril 2.5 mg tablet RxNorm: 664974 1 Tablet(s) PO daily 05/31/20 18 2017 Inactive metoprolol succinate ER 50 mg tablet,extended release 24 hr RxNorm: 558591 1 Tablet(s) PO daily 05/31/20 18 2017 Inactive levothyroxine 50 mcg tablet RxNorm: 520764 1 Tablet(s) PO daily 05/31/20 18 2017 Inactive TRUEplus Lancets 30 gauge RxNorm: 1 Lancets Miscellaneous QAM 05/31/20 18 2017 Inactive 100/box Ventolin HFA 90 mcg/actuation aerosol inhaler RxNorm: 102666 2 Puff(s) INH QID 05/31/20 18 2017 Inactive Aleve 220 mg capsule RxNorm: 8597863 1 Capsule(s) PO BID 05/31/20 18 2018 Inactive ranitidine 150 mg tablet RxNorm: 506996 1 Tablet(s) PO BID 05/31/20 18 2017 Inactive gabapentin 300 mg capsule RxNorm: 567552 1 Capsule(s) PO TID as needed 05/31/20 18 2017 Inactive atorvastatin 20 mg tablet RxNorm: 053697 1 Tablet(s) PO QHS 05/31/20 18 2017 Inactive True Metrix Glucose Test Strip RxNorm: 1 Test Strips Miscellaneous QAM 05/31/20 18 2017 Inactive 50/container Calcium 600-D3 Plus 600 mg calcium-800 unit-50 mg tablet RxNorm: 1 Tablet(s) PO daily take an additonal tablet for itching. 05/31/20 18 2017 Inactive hydrochlorothiazide 12.5 mg tablet RxNorm: 614265 1 Tablet(s) PO QAM 05/31/20 18 2017 Inactive Flintstones Complete (iron) 18 mg iron chewable tablet RxNorm: 1 Tablet(s) PO daily 05/31/20 18 2017 Inactive True Metrix Glucose Meter RxNorm: miscellaneous 08/17/20 19 2018 Inactive sertraline 50 mg tablet RxNorm: 293423 1 Tablet(s) PO daily 11/28/19 20 2019 Inactive loperamide 2 mg tablet RxNorm: 997246 oral 09/29/20 19 2018 Inactive d-mannose oral powder RxNorm: PO 18 2021 Inactive Symbicort 160 mcg-4.5 mcg/actuation HFA aerosol inhaler RxNorm: 0682877 2 Puff(s) INH BID 08/17/20 19 2018 Inactive Medication Administered No Medication Administered data Procedures Procedure Codes Date Tobacco Assessment/Screening CPT-4: TCA Patient Health Questionnaire CPT-4: DPHQ AHA/REBECCA Classification Assessment CPT-4: DAHA 04/25/2019 Controlled Substance Report CPT-4: CTRSU 04/03 Urinalysis, dip stick CPT-4: 33002 03/28/[address]: 536614963 CPT-4: N60Tdbuctl Reason For Visit No Reason For Visit data Plan of Care Planned Activity Notes Codes Status Date Referral: Pending Gynecology Referral Informatio n Referral ProcessedReferral: Pending Pulmonology Referral InformationReferralProcessed Referral: Pending Psychiatry Referral InformationReferralInitiatedReferral: Pending Respiratory Services Referral InformationReferralInitiatedReferral: Pending Ophthalmology Referral InformationReferralInitiatedReferral: [facility] W[facility] [address] [place] [address] USWriter placed a call out to the patient to notify her that it has been recommended that she be seenby 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 Patient agreed to be seen, does not have a provider of choice and no transportationissues. Digital Data Analyst faxed referral and clinical notes to [facility] in [place], [place] near the patient's home. Patient to [...] seen and prefers a provider in the [place] or [place] area. Digital Data Analyst placed a call out to everyone listed in the area and the only location that was able to accept the patient's insurance was [address] [phone] and spoke with Maylin. Maylin asked that the patient's referral, face sheet and visit notes be faxed to . Digital Data Analyst faxed over requested documents. Patient appointment confirmation letter generated and mailed to her home address. Patient to call to schedule an appointment.ProcessedReferral: [facility] WPtel: [address] [place] [address] [place], [place] [id number] USPatient notified that it has been advised that she be seen by Neurology. Patient agreed to be seen and prefers to be seen by a provider in the [place], [place] area. Patient denies any concerns with transportation, and prefers to schedule her own appointment. Digital Data Analyst placed a call out to [facility] and spoke with Neeraj P: who confirmed that their office is able to acceptnew patients and the patient's insurance. After confirming the providers fax number, movie writer faxed over the patient's referral, and [...]
--- OUTSIDE RECORDS SUMMARY | 2019-06-06 20:00 | XMS_ITS | CCD ---
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 Court Registry Officer Name Role Phone Palomo KING, Anna Primary Care Provider Unav ailable Unavailable Chronic Care Management Unavaila ble Summary Purpose DataExchange Insurance Providers Payer name Policy type / Coverage type Covered constitution party ID Effective Begin Date Effective End Date SUKI BUTTS [facility] [id number] Unknown Unknown Family history Mother Diagnosis Age [...] 05/31/2018 Education level Unknown Some High School 10th05/31/20181603UgmpbvfobsYvcawtlArgaoiijfr82/29/2018Tobacco historySNOMED CT: 507185681Puc never smoked or chewed vjxynll1405/31/2018Alcohol historySNOMED CT: 176153515Tiioz drinks hfxbeib7505/31/2018Has the patient ever used illegal drugs? UnknownHas never used illegal drugs05/31/2018DNR Order/ Advanced Directive UnknownFull Code05/31/2018 Allergies, Adverse Reactions, Alerts Substance Reaction Codes Entered Date Inactivated Date Status *No known food allergies Qsxlsnf8009/06/2018No Inactive DateActiveMethylprednisolonehivesRxNorm: 6902 09/06/2018No Inactive DateActive Problems [...] disease with heart failureICD-10: I11.0 ICD-9: 402.9107ActiveOther fdc (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ICD-10: Z79.899 ICD-9: V58.6907ActiveBody mass [...] ICD-9: 465.912ResolvedChronic kidney disease, unspecifiedICD-10: N18.9 ICD-9: 585.9010/03/2018ResolvedLong term (current) use of non-steroidal anti- inflammatories (NSAID)ICD-10: Z79.1 ICD-9: V58.6409Active Medications Medication Codes Instructions Start Date Stop Date Status Fill Instructions atorvastatin 20 mg tablet RxNorm: 332547 1 Tablet(s) PO QHS 06/07/20 19 2018 Inactive This refill negates all other refills of this medication TRUEplus Lancets 30 gauge RxNorm: 1 Lancets Miscellaneous QAM 05/29/20 19 2018 Inactive 100/box gabapentin 300 mg capsule RxNorm: 644702 1 Capsule(s) PO TID 05/03/20 19 2018 Inactive César Complete (iron) 18 mg iron chewable tablet RxNorm: 1 Tablet(s) PO daily 04/04/20 19 2021 Inactive This refill negates all other refills of this medication True Metrix Glucose Test Strip RxNorm: 1 Test Strips Miscellaneous QAM 02/01/20 19 2018 Inactive 100/container Alcohol Prep Pads RxNorm: 630131 1 Patch TOP QAM 02/01/20 19 2018 Inactive gabapentin 300 mg capsule RxNorm: 104403 1 Capsule(s) PO TID as needed 02/01/20 19 2018 Inactive TRUEplus Lancets 30 gauge RxNorm: 1 Lancets Miscellaneous QAM 02/01/20 19 2018 Inactive 100/box lisinopril 2.5 mg tablet RxNorm: 582576 1 Tablet(s) PO daily 12/28/19 19 2018 Inactive buspirone 7.5 mg tablet RxNorm: 662930 1 Tablet(s) PO BID 10/21/19 19 2018 Inactive This refill negates all other refills of this medication ranitidine 150 mg tablet RxNorm: 842336 1 Tablet(s) PO BID 10/21/192018 Inactive This refill negates all other refills of this medication albuterol sulfate 2.5 mg/3 mL (0.083 %) solution for nebulization RxNorm: 197792 1 Vial INH QID 10/21/19 19 2018 [...] this medication gabapentin 300 mg capsule RxNorm: 106890 1 Capsule(s) PO TID as needed 10/21/19 19 2018 Inactive atorvastatin 20 mg tablet RxNorm: 348591 1 Tablet(s) PO QHS 10/21/192018 Inactive This refill negates all other refills of this medication trazodone 50 mg tablet RxNorm: 179465 1 Tablet(s) PO QHS 10/21/19 19 2018 Inactive This refill negates all other refills of this medication Ventolin HFA 90 mcg/actuation aerosol inhaler RxNorm: 244519 2 Puff(s) INH QID 10/21/19 19 2018 Inactive Please do not fill early. Please do not auto refill. This refill negates all other refills of this medication Calcium 600-D3 Plus 600 mg calcium-800 unit-50 mg tablet RxNorm: 1 Tablet(s) PO daily take an additonal tablet for itching. 10/21/192018 Inactive This refill negates all other refills of this medication Singulair 10 mg tablet RxNorm: 530047 1 Tablet(s) PO daily 10/21/192018 Inactive This refill negates all other refills of this medication diclofenac sodium 75 mg tablet,delayed release RxNorm: 979789 1 Tablet(s) PO BID 10/21/192018 Inactive This refill negates all other refills of this medication hydrochlorothiazide 12.5 mg tablet RxNorm: 906380 1 Tablet(s) PO QAM 10/21/192018 Inactive metoprolol succinate ER 50 mg tablet,extended release 24 hr RxNorm: 633308 1 Tablet(s) PO daily 10/21/192018 Inactive This refill negates all other refills of this medication levothyroxine 50 mcg tablet RxNorm: 351860 1 Tablet(s) PO daily 10/21/192018 Inactive This refill negates all other refills of this medication cetirizine 10 mg tablet RxNorm: 7299541 1 Tablet(s) PO daily 10/21/192018 Inactive This refill negates all other refills of this medication. Please do not auto refill Flintstones Complete (iron) 18 mg iron chewable tablet RxNorm: 1 Tablet(s) PO daily 10/21/192018 Inactive This refill negates all other refills of this medication buspirone 7.5 mg tablet RxNorm: 860939 1 Tablet(s) PO BID 10/12/192018 Inactive cetirizine 10 mg tablet RxNorm: 4518197 1 Tablet(s) PO daily 09/28/202018 Inactive Guaiasorb DM 10 mg-100 mg/5 mL oral liquid RxNorm: 032012 10 Milliliter(s) PO As needed every 4 hr 09/24/20 18 2018 Inactive Vicks Vaporub 4.7 %-1.2 %-2.6 % topical ointment RxNorm: 0783375 1 Application TOP TID 12/23/20 18 2018 Inactive levmetamfetamine 50 mg nasal inhaler RxNorm: 1 Unit(s) NASAL Q3-4H 09/24/20 18 2017 Inactive sertraline 50 mg tablet RxNorm: 056234 1 Tablet(s) PO daily 09/09/20 18 2018 Inactive Please note dose trazodone 50 mg tablet RxNorm: 256998 1 Tablet(s) PO QHS 09/06/20 18 2018 Inactive sertraline 50 mg tablet RxNorm: 044435 1 Tablet(s) PO daily 09/06/20 18 2017 Inactive amoxicillin 500 mg tablet RxNorm: 194097 1 Tablet(s) PO Q12H 08/31/20 18 2017 Inactive albuterol sulfate 2.5 mg/3 mL (0.083 %) solution for nebulization RxNorm: 942524 1 Vial INH QID 08/10/20 18 2018 Inactive 60/box. Please do not fill early. Please do not auto refill. Prozac 10 mg capsule RxNorm: 445341 1 Capsule(s) PO daily 08/09/20 18 2017 Inactive buspirone 7.5 mg tablet RxNorm: 450657 1 Tablet(s) PO BID 08/09/20 18 2018 Inactive gabapentin 300 mg capsule RxNorm: 678337 1 Capsule(s) PO TID as needed 08/01/20 18 2018 Inactive hydrochlorothiazide 12.5 mg tablet RxNorm: 248271 1 Tablet(s) PO QAM 08/01/20 18 2018 Inactive ranitidine 150 mg tablet RxNorm: 276839 1 Tablet(s) PO BID 08/01/20 18 2018 Inactive Macrobid 100 mg capsule RxNorm: 065977 1 Capsule(s) PO Q12H 06/21/20 18 2017 Inactive Singulair 10 mg tablet RxNorm: 365229 1 Tablet(s) PO daily 06/14/20 18 2018 Inactive Ventolin HFA 90 mcg/actuation aerosol inhaler RxNorm: 9724029 2 Puff(s) INH QID 06/14/20 18 2018 Inactive Singulair 10 mg tablet RxNorm: 351225 1 Tablet(s) PO daily 06/14/20 18 2017 Inactive buspirone 7.5 mg tablet RxNorm: 900902 1 Tablet(s) PO BID 06/14/20 18 2017 Inactive Prozac 10 mg capsule RxNorm: 310123 1 Capsule(s) PO daily 06/14/20 18 2017 Inactive Neilmed Pediatric Sinus Rinse Refill packet RxNorm: 1 Unit Dose NASAL PRN 05/31/20 18 2021 Inactive diclofenac sodium 75 mg tablet,delayed release RxNorm: 545844 1 Tablet(s) PO BID 05/31/20 18 2017 Inactive lisinopril 2.5 mg tablet RxNorm: 079354 1 Tablet(s) PO daily 05/31/20 18 2017 Inactive metoprolol succinate ER 50 mg tablet,extended release 24 hr RxNorm: 187387 1 Tablet(s) PO daily 05/31/20 18 2017 Inactive levothyroxine 50 mcg tablet RxNorm: 772981 1 Tablet(s) PO daily 05/31/20 18 2017 Inactive TRUEplus Lancets 30 gauge RxNorm: 1 Lancets Miscellaneous QAM 05/31/20 18 2017 Inactive 100/box Ventolin HFA 90 mcg/actuation aerosol inhaler RxNorm: 520627 2 Puff(s) INH QID 05/31/20 18 2017 Inactive Aleve 220 mg capsule RxNorm: 7993465 1 Capsule(s) PO BID 05/31/20 18 2018 Inactive ranitidine 150 mg tablet RxNorm: 157969 1 Tablet(s) PO BID 05/31/20 18 2017 Inactive gabapentin 300 mg capsule RxNorm: 699291 1 Capsule(s) PO TID as needed 05/31/20 18 2017 Inactive atorvastatin 20 mg tablet RxNorm: 007105 1 Tablet(s) PO QHS 05/31/20 18 2017 Inactive True Metrix Glucose Test Strip RxNorm: 1 Test Strips Miscellaneous QAM 05/31/20 18 2017 Inactive 50/container Calcium 600-D3 Plus 600 mg calcium-800 unit-50 mg tablet RxNorm: 1 Tablet(s) PO daily take an additonal tablet for itching. 05/31/20 18 2017 Inactive hydrochlorothiazide 12.5 mg tablet RxNorm: 194494 1 Tablet(s) PO QAM 05/31/20 18 2017 Inactive Flintstones Complete (iron) 18 mg iron chewable tablet RxNorm: 1 Tablet(s) PO daily 05/31/20 18 2017 Inactive True Metrix Glucose Meter RxNorm: miscellaneous 08/17/20 19 2018 Inactive sertraline 50 mg tablet RxNorm: 971115 1 Tablet(s) PO daily 11/28/19 20 2019 Inactive loperamide 2 mg tablet RxNorm: 554032 oral 09/29/20 19 2018 Inactive d-mannose oral powder RxNorm: PO 18 2021 Inactive Symbicort 160 mcg-4.5 mcg/actuation HFA aerosol inhaler RxNorm: 3344129 2 Puff(s) INH BID 08/17/202018 Inactive Medication Administered No Medication Administered data Procedures Procedure Codes Date Tobacco Assessment/Screening CPT-4: TCA Patient Health Questionnaire CPT-4: DPHQ AHA/REBECCA Classification Assessment CPT-4: DAHA 04/25/2019 Controlled Substance Report CPT-4: CTRSU 04/03 Urinalysis, dip stick CPT-4: 56084 03/28/[address]: 385904512 CPT-4: Z67Hyruxtr Reason For Visit No Reason For Visit data Plan of Care Planned Activity Notes Codes Status Date Referral: Pending Gynecology Referral Informatio n Referral ProcessedReferral: Pending Pulmonology Referral InformationReferralProcessed Referral: Pending Psychiatry Referral InformationReferralInitiatedReferral: Pending Respiratory Services Referral InformationReferralInitiatedReferral: Pending Ophthalmology Referral InformationReferralInitiatedReferral: [facility] WPtel: [address] [place] [place]Writer placed a call out to the patient to notify her that it has been recommended that she be seenby 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 Patient agreed to be seen, does not have a provider of choice and no transportationissues. Museum Informatics Specialist faxed referral and clinical notes to [facility] in [place], [place] near the patient's home. Patient to [...] seen and prefers a provider in the [place] or [place] area. Museum Informatics Specialist placed a call out to everyone listed in the area and the only location that was able to accept the patient's insurance was [address] [address] and spoke with Maylin. Maylin asked that the patient's referral, face sheet and visit notes be faxed to . Museum Informatics Specialist faxed over requested documents. Patient appointment confirmation letter generated and mailed to her home address. Patient to call to schedule an appointment.ProcessedReferral: [facility] WPtel: [address] [facility] [address] [place], [place] [id number] USPatient notified that it has been advised that she be seen by Neurology. Patient agreed to be seen and prefers to be seen by a provider in the [place], [place] area. Patient denies any concerns with transportation, and prefers to schedule her own appointment. Museum Informatics Specialist [facility] and spoke with Neeraj Mcfarland: who confirmed that their office is able to acceptnew patients and the patient's insurance. After confirming the providers fax number, senior medical writer faxed over the patient's referral, and [...]
--- OUTSIDE RECORDS SUMMARY | 2019-06-23 20:00 | XMS_ITS | CCD ---
Author Name Maricarmen KING, Sudha Address [address] [facility] [address] [facility] [address] [place] [address] Phone Organization [facility] Phone Care Team Providers Care Fitting Room Attendant Name Role Phone Palomo KING, Anna Primary Care Provider Unav ailable Unavailable Chronic Care Management Unavaila ble Summary Purpose DataExchange Insurance Providers Payer name Policy type / Coverage type Covered democrat ID Effective Begin Date Effective End Date SUKI [employer]TS [facility] [id number] Unknown Unknown Family history Mother Diagnosis Age [...] 05/31/2018 Education level Unknown Some High School 10th05/31/20188004EhfhbnvzluMetbbtdUrwgeigfey16/29/2018Tobacco historySNOMED CT: 421358893Zaq never smoked or chewed vgbovzm0005/31/2018Alcohol historySNOMED CT: 493224768Hxsbk drinks oqunlkv7005/31/2018Has the patient ever used illegal drugs? UnknownHas never used illegal drugs05/31/2018DNR Order/ Advanced Directive UnknownFull Code05/31/2018 Allergies, Adverse Reactions, Alerts Substance Reaction Codes Entered Date Inactivated Date Status *No known food allergies Ruvicrt5109/06/2018No Inactive DateActiveMethylprednisolonehivesRxNorm: 6902 09/06/2018No Inactive DateActive Problems Condition Codes Effective Dates Condition St atus Chronic kidney disease, unspecified ICD- 10: N18.9 ICD-9: 585.909ActiveHyperlipidemia, unspecifiedICD-10: E78.5 ICD-9: 272.408/ActiveHypertensive heart disease with heart failureICD-10: I11.0 ICD-9: 402.9107/ActiveHypothyroidism, unspecifiedICD-10: E03.9 ICD-9: 244.912ActiveMixed incontinenceICD-10: N39.46 ICD-9: 788.3308ActiveObstructive sleep apnea (adult) (pediatric)ICD-10: G47.33 ICD-9: 327.2309/ActiveType 2 diabetes mellitus without complicationsICD- 10: E11.9 ICD-9: 250.0001ActiveApnea, not elsewhere classifiedICD-10: R06.81 ICD-9: 786.0305ActiveEncounter for immunizationICD-10: Z23 ICD-9: V03.907/ActiveEncounter for screening, unspecifiedICD-10: Z13.9 ICD-9: V82.912ActiveEssential (primary) hypertensionICD-10: I10 ICD-9: 401.901ActiveUnspecified asthma, uncomplicatedICD-10: J45.909 ICD-9: 493.9011ActivePolyneuropathy, unspecifiedICD-10: G62.9 ICD-9: 356.908ActivePatient Not SeenICD-10: UXZ.01 ICD-9: XZ0.107ActiveEncounter for screening for malignant neoplasm of cervixICD-10: Z12.4 ICD-9: V76.207/ActiveOther shelter (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ICD-10: Z79.899 ICD-9: V58.6907ActiveBody mass [...] upper respiratory infection, unspecifiedICD- 10: J06.9 ICD-9: 465.912ResolvedLong term (current) use of non-steroidal anti- inflammatories (NSAID)ICD-10: Z79.1 ICD-9: V58.6409Active Medications Medication Codes Instructions Start Date Stop Date Status Fill Instructions lisinopril 2.5 mg tablet RxNorm: 074359 1 Tablet(s) PO daily 06/21/202019 Inactive gabapentin 300 mg capsule RxNorm: 564879 1 Capsule(s) PO TID 06/21/20 19 2019 Inactive atorvastatin 20 mg tablet RxNorm: 131756 1 Tablet(s) PO QHS 06/07/202018 Inactive This refill negates all other refills of this medication TRUEplus Lancets 30 gauge RxNorm: 1 Lancets Miscellaneous QAM 05/29/20 19 2018 Inactive 100/box gabapentin 300 mg capsule RxNorm: 128052 1 Capsule(s) PO TID 05/03/20 19 2018 Inactive Flintstones Complete (iron) 18 mg iron chewable tablet RxNorm: 1 Tablet(s) PO daily 04/04/20 19 2021 Inactive This refill negates all other refills of this medication True Metrix Glucose Test Strip RxNorm: 1 Test Strips Miscellaneous QAM 02/01/20 19 2018 Inactive 100/container Alcohol Prep Pads RxNorm: 251392 1 Patch TOP QAM 02/01/20 19 2018 Inactive gabapentin 300 mg capsule RxNorm: 465938 1 Capsule(s) PO TID as needed 02/01/20 19 2018 Inactive TRUEplus Lancets 30 gauge RxNorm: 1 Lancets Miscellaneous QAM 02/01/20 19 2018 Inactive 100/box lisinopril 2.5 mg tablet RxNorm: 224152 1 Tablet(s) PO daily 12/28/19 19 2018 Inactive buspirone 7.5 mg tablet RxNorm: 316631 1 Tablet(s) PO BID 10/21/192018 Inactive This refill negates all other refills of this medication ranitidine 150 mg tablet RxNorm: 351234 1 Tablet(s) PO BID 10/21/19 19 2018 Inactive This refill negates all other refills of this medication albuterol sulfate 2.5 mg/3 mL (0.083 %) solution for nebulization RxNorm: 422701 1 Vial INH QID 10/21/192018 Inactive 60/box. [...] this medication gabapentin 300 mg capsule RxNorm: 345328 1 Capsule(s) PO TID as needed 10/21/19 19 2018 Inactive atorvastatin 20 mg tablet RxNorm: 276220 1 Tablet(s) PO QHS 10/21/19 19 2018 Inactive This refill negates all other refills of this medication trazodone 50 mg tablet RxNorm: 311282 1 Tablet(s) PO QHS 10/21/19 19 2018 Inactive This refill negates all other refills of this medication Ventolin HFA 90 mcg/actuation aerosol inhaler RxNorm: 630676 2 Puff(s) INH QID 10/21/19 19 2018 Inactive Please do not fill early. Please do not auto refill. This refill negates all other refills of this medication Calcium 600-D3 Plus 600 mg calcium-800 unit-50 mg tablet RxNorm: 1 Tablet(s) PO daily take an additonal tablet for itching. 10/21/192018 Inactive This refill negates all other refills of this medication Singulair 10 mg tablet RxNorm: 457466 1 Tablet(s) PO daily 10/21/192018 Inactive This refill negates all other refills of this medication diclofenac sodium 75 mg tablet,delayed release RxNorm: 077375 1 Tablet(s) PO BID 10/21/19 19 2018 Inactive This refill negates all other refills of this medication hydrochlorothiazide 12.5 mg tablet RxNorm: 157163 1 Tablet(s) PO QAM 10/21/192018 Inactive metoprolol succinate ER 50 mg tablet,extended release 24 hr RxNorm: 062489 1 Tablet(s) PO daily 10/21/192018 Inactive This refill negates all other refills of this medication levothyroxine 50 mcg tablet RxNorm: 306610 1 Tablet(s) PO daily 10/21/192018 Inactive This refill negates all other refills of this medication cetirizine 10 mg tablet RxNorm: 4098080 1 Tablet(s) PO daily 10/21/192018 Inactive This refill negates all other refills of this medication. Please do not auto refill Flintstones Complete (iron) 18 mg iron chewable tablet RxNorm: 1 Tablet(s) PO daily 10/21/192018 Inactive This refill negates all other refills of this medication buspirone 7.5 mg tablet RxNorm: 711586 1 Tablet(s) PO BID 10/12/19 19 2018 Inactive cetirizine 10 mg tablet RxNorm: 0979365 1 Tablet(s) PO daily 09/28/20 18 2018 Inactive Guaiasorb DM 10 mg-100 mg/5 mL oral liquid RxNorm: 204139 10 Milliliter(s) PO As needed every 4 hr 09/24/20 18 2018 Inactive Vicks Vaporub 4.7 %-1.2 %-2.6 % topical ointment RxNorm: 6583931 1 Application TOP TID 09/24/20 18 2018 Inactive levmetamfetamine 50 mg nasal inhaler RxNorm: 1 Unit(s) NASAL Q3-4H 09/24/20 18 2017 Inactive sertraline 50 mg tablet RxNorm: 034752 1 Tablet(s) PO daily 09/09/20 18 2018 Inactive Please note dose trazodone 50 mg tablet RxNorm: 569514 1 Tablet(s) PO QHS 09/06/20 18 2018 Inactive sertraline 50 mg tablet RxNorm: 102385 1 Tablet(s) PO daily 09/06/20 18 2017 Inactive amoxicillin 500 mg tablet RxNorm: 617181 1 Tablet(s) PO Q12H 08/31/20 18 2017 Inactive albuterol sulfate 2.5 mg/3 mL (0.083 %) solution for nebulization RxNorm: 681257 1 Vial INH QID 08/10/20 18 2018 Inactive 60/box. Please do not fill early. Please do not auto refill. Prozac 10 mg capsule RxNorm: 097968 1 Capsule(s) PO daily 08/09/20 18 2017 Inactive buspirone 7.5 mg tablet RxNorm: 467901 1 Tablet(s) PO BID 08/09/20 18 2018 Inactive gabapentin 300 mg capsule RxNorm: 110394 1 Capsule(s) PO TID as needed 08/01/20 18 2018 Inactive hydrochlorothiazide 12.5 mg tablet RxNorm: 660098 1 Tablet(s) PO QAM 08/01/20 18 2018 Inactive ranitidine 150 mg tablet RxNorm: 492903 1 Tablet(s) PO BID 08/01/20 18 2018 Inactive Macrobid 100 mg capsule RxNorm: 183722 1 Capsule(s) PO Q12H 06/21/20 18 2017 Inactive Singulair 10 mg tablet RxNorm: 512671 1 Tablet(s) PO daily 06/14/20 18 2018 Inactive Ventolin HFA 90 mcg/actuation aerosol inhaler RxNorm: 7709212 2 Puff(s) INH QID 06/14/20 18 2018 Inactive Singulair 10 mg tablet RxNorm: 412542 1 Tablet(s) PO daily 06/14/20 18 2017 Inactive buspirone 7.5 mg tablet RxNorm: 941309 1 Tablet(s) PO BID 06/14/20 18 2017 Inactive Prozac 10 mg capsule RxNorm: 080608 1 Capsule(s) PO daily 06/14/20 18 2017 Inactive Neilmed Pediatric Sinus Rinse Refill packet RxNorm: 1 Unit Dose NASAL PRN 05/31/20 18 2021 Inactive diclofenac sodium 75 mg tablet,delayed release RxNorm: 841443 1 Tablet(s) PO BID 05/31/20 18 2017 Inactive lisinopril 2.5 mg tablet RxNorm: 387656 1 Tablet(s) PO daily 05/31/20 18 2017 Inactive metoprolol succinate ER 50 mg tablet,extended release 24 hr RxNorm: 111659 1 Tablet(s) PO daily 05/31/20 18 2017 Inactive levothyroxine 50 mcg tablet RxNorm: 025236 1 Tablet(s) PO daily 05/31/20 18 2017 Inactive TRUEplus Lancets 30 gauge RxNorm: 1 Lancets Miscellaneous QAM 05/31/20 18 2017 Inactive 100/box Ventolin HFA 90 mcg/actuation aerosol inhaler RxNorm: 384845 2 Puff(s) INH QID 05/31/20 18 2017 Inactive Aleve 220 mg capsule RxNorm: 8396173 1 Capsule(s) PO BID 05/31/20 18 2018 Inactive ranitidine 150 mg tablet RxNorm: 429004 1 Tablet(s) PO BID 05/31/20 18 2017 Inactive gabapentin 300 mg capsule RxNorm: 350948 1 Capsule(s) PO TID as needed 05/31/20 18 2017 Inactive atorvastatin 20 mg tablet RxNorm: 010538 1 Tablet(s) PO QHS 05/31/20 18 2017 Inactive True Metrix Glucose Test Strip RxNorm: 1 Test Strips Miscellaneous QAM 05/31/20 18 2017 Inactive 50/container Calcium 600-D3 Plus 600 mg calcium-800 unit-50 mg tablet RxNorm: 1 Tablet(s) PO daily take an additonal tablet for itching. 05/31/20 18 2017 Inactive hydrochlorothiazide 12.5 mg tablet RxNorm: 929284 1 Tablet(s) PO QAM 05/31/20 18 2017 Inactive Flintstones Complete (iron) 18 mg iron chewable tablet RxNorm: 1 Tablet(s) PO daily 05/31/20 18 2017 Inactive True Metrix Glucose Meter RxNorm: miscellaneous 08/17/20 19 2018 Inactive sertraline 50 mg tablet RxNorm: 027491 1 Tablet(s) PO daily 11/28/19 20 2019 Inactive loperamide 2 mg tablet RxNorm: 595965 oral 09/29/20 19 2018 Inactive d-mannose oral powder RxNorm: PO 18 2021 Inactive Symbicort 160 mcg-4.5 mcg/actuation HFA aerosol inhaler RxNorm: 3191462 2 Puff(s) INH BID 08/17/20 19 2018 Inactive Medication Administered No Medication Administered data Results Observation Observation Code Item Item Code Result Date S ervice Location TRIGLYCERIDES [address]10 Triglycerides 2571-8 171 mg/dL 9 [facility] [address] [facility] [place] [address]ROLWQDMFOBQBN93404XZRT31393-477 mg/dL06/22/2019 [facility] [address] [place], [place] [address]XKT - GOXP50634MJN8855-615 mg/dL06/22/2019 [facility] [address] [place], [place] [address]JYR - FSHM46983TBS78336-540 %06/22/2019 [facility] [address] [place], [place] [address]Xdksolljbuap16249Jgvsoezfajol06021-66.42 umol/L06/22/2019 [facility] [address] [place], [place] [address]YLC50210NXA00309-78.210 uIU/mL06/22/2019 [facility] [address] [place], [place] [address]LYEOAPLSFNF94277Kdpqahykuyj8829-3230 mg/dL06/22/2019 [facility] [address] [place], [place] [address]DHCOXVHXORSO (URINE)40261Yuyfkthilvgh57712-57.5 mg/dL06/22/2019 [facility] [address] [place] [address] 76878HKGGJZXTUSRS (URINE)80257Sanskhmcrpjr/Creatinine Evmeh03794-20 MCG/PJQPXTU4006/22/2019 [facility] [address] [place] [address] 27633XFZLNMKQUESW (URINE)95684Maiju Izgnpikjkz9806-343.30 mg/dL 06/22/2019 [facility] [address] [place] [address]95[address]ECZWELH B-0374688Mxxkzww V064494-2834 pg/mL06/22/2019 [facility] [address] [place] [address] 28944Brfjvb NHI50330QRP-Smclat66402-7231 mg/dL06/22/2019 [facility] [address] [place] [address] 34897Onwqbx Molecular UTI TestRMUTIMolecular UTI TestCRITERIA NOT MET FOR MOLECULAR UTI BQUKNWX9206/22/2019 [facility] [address] [place] [address] 98270Jhhnnz UA to Molecular UTI Ktrm72647JEqlvwyk6310-7Ktzaeobf mg/dL 06/22/2019 [facility] [address] [place], [place] [address]Pvgnmo UA to Molecular UTI Thqg34362ETxcgnwmTptoatxh mg/dL 06/22/2019 [facility] [address] [place] [address] 90[address]Ibuzoi UA to Molecular UTI Fnub84550MPqcznxppoYoqmjufc mg/dL 06/22/2019 [facility] [address] [place] [address]Sgyfqb UA to Molecular UTI Iqfx07621NFlldpuhliwwjMfoevnkg mg/dL 06/22/2019 [facility] [address] [place] [address]Yoqlxg UA to Molecular UTI Ktkp21060OHu7.00006/22/2019 [facility] [address] [place] [address]Wtkcmy UA to Molecular UTI Taqy26051ARjuhiGxelhjbw mg/dL06/22/2019 [facility] [address] [place] [address]Irhaml UA to Molecular UTI Ucyg50031BGhbkxwwUizkkvzl mg/dL 06/22/2019 [facility] [address] [place] [address]Mukcng UA to Molecular UTI Olaf23290IJspsojzGkhitfzg37/20/2019 [facility] [address] [place] [address]Iusjqd UA to Molecular UTI Pjrk07168AOnsbtcvhcp130 WBCs/uL +++ WBCs/uL06/22/2019 [facility] [address] [place] [address]Qbuemx UA to Molecular UTI Iieh34733ZJzhbaldLkemcojz-Vggdfg 06/22/2019 [facility] [address] [place] [address]Rnweza UA to Molecular UTI Ktxu28837UZlmayurb Gravity1.013 06/22/2019 [facility] [address] [place] [address]Hregof UA to Molecular UTI Pmvq09375CFlcsvVgwlwo84/20/2019 [facility] [address] [place] [address]Rogfjk UA to Molecular UTI Next05545GCjklptli AcidNegative mg/dL 06/22/2019 [facility] [address] [place] [address]Ayaqzr UA to Molecular UTI Qgse87566QOnx Blood Cell1 /HPF #/HPF 06/22/2019 [facility] [address] [address]Lcshhj UA to Molecular UTI Bfya58365RBnlaf Blood Cell4 /HPF #/HPF 06/22/2019 [facility] [address] [facility] [place] [address]Wtbusg UA to Molecular UTI Nbhu97793KRWXPJOAH EPITHELIAL1 /HPF #/HPF06/22/2019 [facility] [address] [place], [place] [address]Davtmr UA to Molecular UTI Ngco15571JLliefpvvRgpfl graded/HPF 06/22/2019 [facility] [address] [place], [place] [address]Enkeeg UA to Molecular UTI Kagp54905KRsunitESVM grades/LPF 06/22/2019 [facility] [address] [place] [address] Procedures Procedure Codes Date Urinalysis, dip stick CPT-4: 35683 06/21/2019 Urinalysis, dip stick Leukocytes:/Moderate, Nitrite:/Negative, Urobilinogen:/Normal, Protein:/Negative, Ph:/5.0, Blood:/Negative, Specific [place]:/1.015, Ketone:/Negative, Bilirubin:/Negative, Glucose:/NegativeCPT-4: 52003Gjiqxzc 06/21/2019Tobacco Assessment/ScreeningCPT-4: TCA05/24/2019Patient Health QuestionnaireCPT-4: DPHQ05/24/2019AHA/REBECCA Classification AssessmentCPT-4: DAHA 04/25/2019Controlled Substance ReportCPT-4: CTRSU04/25/2019Urinalysis, dip stick CPT-4: 874484503/28/2019Urinalysis, dip stickCPT-4: 0502423Gynecology ReferralSNOMED CT: 937154779 CPT-4: Z22Ztvoltv Vital Signs Date Vital 06/21/2019 Blood Pressure 1: 136/78 Code: 8480-6 BMI: 56.8 Code: 98740-9 Heart Rate 1: 78 bpm Height: 4'11 Code: 8302-2 Random Blood Sugar: 118/NaN Reported Pain Level (Scale 0-10): Respiratory Rate: 18 bpm SpO2: 99% Temperature: 36.7 (C) / 98.1 (F) Weight: 281 lbs Code: 08390-7 Reason For Visit Reason For Visit Effective Dates Notes urinary incontinence 06/21/2019 hypertension 06/21/2019 hyperlipidemia disease 06/21/2019 Encounters Encounter Performer Location Location Address Codes Magdi e HOME VISIT EST PATIENT Diagnosis: Hyperlipidemia, unspecified[ICD10: E78.5] Diagnosis: Hypothyroidism, unspecified[ICD10: E03.9] Diagnosis: Mixed incontinence[ICD10: N39.46] Diagnosis: Type 2 diabetes mellitus without complications[ICD10: E11.9] Diagnosis: Chronic kidney disease, unspecified[ICD10: N18.9] Diagnosis: Obstructive sleep apnea (adult) (pediatric)[ICD10: G47.33] Diagnosis: Hypertensive heart disease with heart failure[ICD10: I11.0]Sudha Gannariane [address] [place] [address]WFB- 4: [id number] Plan of Care Planned Activity Notes Codes Status Date Patient Education: Patient Medication Summary Peaososvp24/19/2019Care Plan: URINALYSIS AUTO W/SCOPELOINC : 36042-4 Wpdtmeb3306/21/2019Appointment: Charlene Oropeza WPtel: [address] [facility] [id number] [id number]: Danny, TpdfbzR62104/26/2019Appointment: Charlene Oropeza WPtel: [address] [facility] [id number]: Haupricht, Rasta WPtel: [address] [facility] [id number]: Haupricht, Rasta WPtel: [address] [facility] [id number] [id number]: Haupricht, Rasta WPtel: [address] [facility] [id number]: Haupricht, Rasta WPtel: [address] [facility] [id number]: Pending Gynecology Referral InformationReferral ProcessedReferral: Pending Pulmonology Referral InformationReferralProcessed Referral: Pending Psychiatry Referral InformationReferralInitiatedReferral: Pending Respiratory Services Referral InformationReferralInitiatedReferral: Pending Ophthalmology Referral InformationReferralInitiatedReferral: [facility] [place] WPtel: [address] [facility] [address] [place] USWriter placed a call out to the patient to notify her that it has been recommended that she be seenby 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 Patient agreed to be seen, does not have a provider of choice and no transportationissues. Histotechnologist faxed referral and clinical notes to [facility] in [place], [place] near the patient's home. Patient to [...] seen and prefers a provider in the [place] or [place] area. Histotechnologist placed a call out to everyone listed in the area and the only location that was able to accept the patient's insurance was [address] [address] and spoke with Maylin. Maylin asked that the patient's referral, face sheet and visit notes be faxed to . Histotechnologist faxed over requested documents. Patient appointment confirmation letter generated and mailed to her home address. Patient to call to schedule an appointment.ProcessedReferral: [facility] WPtel: [address] [facility] [address] [place], [place] [id number] USPatient notified that it has been advised that she be seen by Neurology. Patient agreed to be seen and prefers to be seen by a provider in the [place], [place] area. Patient denies any concerns with transportation, and prefers to schedule her own appointment. Histotechnologist [facility] and spoke with Neeraj P: who confirmed that their office is able to acceptnew patients and the patient's insurance. After confirming the providers fax number, designer writer faxed over the patient's referral, and [...]
--- OUTSIDE RECORDS SUMMARY | 2019-06-25 20:00 | XMS_ITS | CCD ---
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 Auto Service Dispatcher Name Role Phone Palomo KING, Anna Primary Care Provider Unav ailable Unavailable Chronic Care Management Unavaila ble Summary Purpose DataExchange Insurance Providers Payer name Policy type / Coverage type Covered alliance party ID Effective Begin Date Effective End Date [employer] [facility] [id number] Unknown Unknown Family history Mother Diagnosis Age [...] 05/31/2018 Education level Unknown Some High School 10th05/31/20185571BvidgbbgdoPeciumeVxzrxuqqvm98/29/2018Tobacco historySNOMED CT: 875781260Yeh never smoked or chewed ognlibr1505/31/2018Alcohol historySNOMED CT: 765082252Cizfi drinks bkaxtaz2805/31/2018Has the patient ever used illegal drugs? UnknownHas never used illegal drugs05/31/2018DNR Order/ Advanced Directive UnknownFull Code05/31/2018 Allergies, Adverse Reactions, Alerts Substance Reaction Codes Entered Date Inactivated Date Status *No known food allergies Dvpmpby1409/06/2018No Inactive DateActiveMethylprednisolonehivesRxNorm: 6902 09/06/2018No Inactive DateActive Problems Condition Codes Effective Dates Condition St atus Chronic kidney disease, unspecified ICD- 10: N18.9 ICD-9: 585.909ActiveHyperlipidemia, unspecifiedICD-10: E78.5 ICD-9: 272.408ActiveHypertensive heart disease with heart failureICD-10: I11.0 ICD-9: 402.9107/ActiveHypothyroidism, unspecifiedICD-10: E03.9 ICD-9: 244.912ActiveMixed incontinenceICD-10: N39.46 ICD-9: 788.3308ActiveObstructive sleep apnea (adult) (pediatric)ICD-10: G47.33 ICD-9: 327.2309ActiveType 2 diabetes mellitus without complicationsICD- 10: E11.9 ICD-9: 250.0001/10/2018ActiveApnea, not elsewhere classifiedICD-10: R06.81 ICD-9: 786.0305ActiveEncounter for immunizationICD-10: Z23 ICD-9: V03.907ActiveEncounter for screening, unspecifiedICD-10: Z13.9 ICD-9: V82.912ActiveEssential (primary) hypertensionICD-10: I10 ICD-9: 401.901ActiveUnspecified asthma, uncomplicatedICD-10: J45.909 ICD-9: 493.9011ActivePolyneuropathy, unspecifiedICD-10: G62.9 ICD-9: 356.908ActivePatient Not SeenICD-10: UXZ.01 ICD-9: XZ0.107ActiveEncounter for screening for malignant neoplasm of cervixICD-10: Z12.4 ICD-9: V76.207ActiveOther computer terminal operator (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ICD-10: Z79.899 ICD-9: V58.6907ActiveBody mass [...] Start Date Stop Date Status Fill Instructions hydrochlorothiazide 12.5 mg tablet RxNorm: 379100 1 Tablet(s) PO QAM 06/26/20 19 2019 Inactive levmetamfetamine 50 mg nasal inhaler RxNorm: 1 Unit(s) NASAL Q3-4H Do not use more than every 3 hours or 8 times/24hours 06/26/20 19 2021 Inactive Please do not auto refill. This refill negates all other refills of this medication Ventolin HFA 90 mcg/actuation aerosol inhaler RxNorm: 520935 2 Puff(s) INH QID 06/26/20 19 2018 Inactive Please do not fill early. Please do not auto refill. This refill negates all other refills of this medication Singulair 10 mg tablet RxNorm: 146297 1 Tablet(s) PO daily 06/26/20 19 2019 Inactive This refill negates all other refills of this medication cetirizine 10 mg tablet RxNorm: 4437010 1 Tablet(s) PO daily 06/26/20 19 2019 Inactive This refill negates all other refills of this medication. Please do not auto refill levothyroxine 50 mcg tablet RxNorm: 852113 1 Tablet(s) PO daily 06/26/20 19 2019 Inactive This refill negates all other refills of this medication diclofenac sodium 75 mg tablet,delayed release RxNorm: 449419 1 Tablet(s) PO BID 06/26/20 19 2019 Inactive This refill negates all other refills of this medication ranitidine 150 mg tablet RxNorm: 197097 1 Tablet(s) PO BID 06/26/20 19 2018 Inactive This refill negates all other refills of this medication buspirone 7.5 mg tablet RxNorm: 425940 1 Tablet(s) PO BID 06/26/20 19 2020 Inactive This refill negates all other refills of this medication Calcium 600-D3 Plus (mag-zinc) 600 mg calcium-800 unit-50 mg tablet RxNorm: 1 Tablet(s) PO daily take an additonal tablet for itching. 06/26/20 19 2018 Inactive This refill negates all other refills of this medication albuterol sulfate 2.5 mg/3 mL (0.083 %) solution for nebulization RxNorm: 388514 1 Vial INH QID 06/26/20 19 2018 Inactive 60/box. This refill negates all other refills of this medication. Please do not fill early. Please do not auto refill. lisinopril 2.5 mg tablet RxNorm: 725187 1 Tablet(s) PO daily 06/21/20 19 2019 Inactive gabapentin 300 mg capsule RxNorm: 802225 1 Capsule(s) PO TID 06/21/20 19 2019 Inactive atorvastatin 20 mg tablet RxNorm: 260714 1 Tablet(s) PO QHS 06/07/20 19 2018 Inactive This refill negates all other refills of this medication TRUEplus Lancets 30 gauge RxNorm: 1 Lancets Miscellaneous QAM 05/29/20 19 2018 Inactive 100/box gabapentin 300 mg capsule RxNorm: 003424 1 Capsule(s) PO TID 05/03/202018 Inactive Flintstones Complete (iron) 18 mg iron chewable tablet RxNorm: 1 Tablet(s) PO daily 04/04/202021 Inactive This refill negates all other refills of this medication True Metrix Glucose Test Strip RxNorm: 1 Test Strips Miscellaneous QA 02/01/202018 Inactive 100/container Alcohol Prep Pads RxNorm: 703511 1 Patch TOP QA 02/01/202018 Inactive gabapentin 300 mg capsule RxNorm: 527427 1 Capsule(s) PO TID as needed 02/01/202018 Inactive TRUEplus Lancets 30 gauge RxNorm: 1 Lancets Miscellaneous QA 02/01/202018 Inactive 100/box lisinopril 2.5 mg tablet RxNorm: 055887 1 Tablet(s) PO daily 12/28/192018 Inactive ranitidine 150 mg tablet RxNorm: 830303 1 Tablet(s) PO BID 10/21/192018 Inactive This refill negates all other refills of this medication albuterol sulfate 2.5 mg/3 mL (0.083 %) solution for nebulization RxNorm: 197924 1 Vial INH QID 10/21/192018 Inactive 60/box. [...] this medication gabapentin 300 mg capsule RxNorm: 305066 1 Capsule(s) PO TID as needed 10/21/192018 Inactive atorvastatin 20 mg tablet RxNorm: 784361 1 Tablet(s) PO QHS 10/21/192018 Inactive This refill negates all other refills of this medication trazodone 50 mg tablet RxNorm: 581286 1 Tablet(s) PO QHS 10/21/19 19 2018 Inactive This refill negates all other refills of this medication Ventolin HFA 90 mcg/actuation aerosol inhaler RxNorm: 085391 2 Puff(s) INH QID 10/21/19 19 2018 Inactive Please do not fill early. Please do not auto refill. This refill negates all other refills of this medication Calcium 600-D3 Plus 600 mg calcium-800 unit-50 mg tablet RxNorm: 1 Tablet(s) PO daily take an additonal tablet for itching. 10/21/192018 Inactive This refill negates all other refills of this medication Singulair 10 mg tablet RxNorm: 867774 1 Tablet(s) PO daily 10/21/19 19 2018 Inactive This refill negates all other refills of this medication buspirone 7.5 mg tablet RxNorm: 600903 1 Tablet(s) PO BID 10/21/19 19 2018 Inactive This refill negates all other refills of this medication diclofenac sodium 75 mg tablet,delayed release RxNorm: 893185 1 Tablet(s) PO BID 10/21/19 19 2018 Inactive This refill negates all other refills of this medication hydrochlorothiazide 12.5 mg tablet RxNorm: 072172 1 Tablet(s) PO QAM 10/21/192018 Inactive metoprolol succinate ER 50 mg tablet,extended release 24 hr RxNorm: 194026 1 Tablet(s) PO daily 10/21/192018 Inactive This refill negates all other refills of this medication levothyroxine 50 mcg tablet RxNorm: 328398 1 Tablet(s) PO daily 10/21/192018 Inactive This refill negates all other refills of this medication cetirizine 10 mg tablet RxNorm: 3132497 1 Tablet(s) PO daily 10/21/19 19 2018 Inactive This refill negates all other refills of this medication. Please do not auto refill Flintstones Complete (iron) 18 mg iron chewable tablet RxNorm: 1 Tablet(s) PO daily 10/21/19 19 2018 Inactive This refill negates all other refills of this medication buspirone 7.5 mg tablet RxNorm: 905597 1 Tablet(s) PO BID 10/12/19 19 2018 Inactive cetirizine 10 mg tablet RxNorm: 2113610 1 Tablet(s) PO daily 09/28/20 18 2018 Inactive Guaiasorb DM 10 mg-100 mg/5 mL oral liquid RxNorm: 281815 10 Milliliter(s) PO As needed every 4 hr 09/24/20 18 2018 Inactive Vicks Vaporub 4.7 %-1.2 %-2.6 % topical ointment RxNorm: 6222438 1 Application TOP TID 09/24/20 18 2018 Inactive levmetamfetamine 50 mg nasal inhaler RxNorm: 1 Unit(s) NASAL Q3-4H 09/24/20 18 2017 Inactive sertraline 50 mg tablet RxNorm: 198651 1 Tablet(s) PO daily 09/09/20 18 2018 Inactive Please note dose trazodone 50 mg tablet RxNorm: 348176 1 Tablet(s) PO QHS 09/06/20 18 2018 Inactive sertraline 50 mg tablet RxNorm: 828073 1 Tablet(s) PO daily 09/06/20 18 2017 Inactive amoxicillin 500 mg tablet RxNorm: 583868 1 Tablet(s) PO Q12H 08/31/20 18 2017 Inactive albuterol sulfate 2.5 mg/3 mL (0.083 %) solution for nebulization RxNorm: 276560 1 Vial INH QID 08/10/20 18 2018 Inactive 60/box. Please do not fill early. Please do not auto refill. Prozac 10 mg capsule RxNorm: 247419 1 Capsule(s) PO daily 08/09/20 18 2017 Inactive buspirone 7.5 mg tablet RxNorm: 354462 1 Tablet(s) PO BID 08/09/20 18 2018 Inactive gabapentin 300 mg capsule RxNorm: 979918 1 Capsule(s) PO TID as needed 08/01/20 18 2018 Inactive hydrochlorothiazide 12.5 mg tablet RxNorm: 724804 1 Tablet(s) PO QAM 08/01/20 18 2018 Inactive ranitidine 150 mg tablet RxNorm: 116440 1 Tablet(s) PO BID 08/01/20 18 2018 Inactive Macrobid 100 mg capsule RxNorm: 882714 1 Capsule(s) PO Q12H 06/21/20 18 2017 Inactive Singulair 10 mg tablet RxNorm: 974076 1 Tablet(s) PO daily 06/14/20 18 2018 Inactive Ventolin HFA 90 mcg/actuation aerosol inhaler RxNorm: 1681035 2 Puff(s) INH QID 06/14/20 18 2018 Inactive Singulair 10 mg tablet RxNorm: 357136 1 Tablet(s) PO daily 06/14/20 18 2017 Inactive buspirone 7.5 mg tablet RxNorm: 597909 1 Tablet(s) PO BID 06/14/20 18 2017 Inactive Prozac 10 mg capsule RxNorm: 618506 1 Capsule(s) PO daily 06/14/20 18 2017 Inactive Neilmed Pediatric Sinus Rinse Refill packet RxNorm: 1 Unit Dose NASAL PRN 05/31/20 18 2021 Inactive diclofenac sodium 75 mg tablet,delayed release RxNorm: 210312 1 Tablet(s) PO BID 05/31/20 18 2017 Inactive lisinopril 2.5 mg tablet RxNorm: 822622 1 Tablet(s) PO daily 05/31/20 18 2017 Inactive metoprolol succinate ER 50 mg tablet,extended release 24 hr RxNorm: 954899 1 Tablet(s) PO daily 05/31/20 18 2017 Inactive levothyroxine 50 mcg tablet RxNorm: 572691 1 Tablet(s) PO daily 05/31/20 18 2017 Inactive TRUEplus Lancets 30 gauge RxNorm: 1 Lancets Miscellaneous QAM 05/31/20 18 2017 Inactive 100/box Ventolin HFA 90 mcg/actuation aerosol inhaler RxNorm: 780398 2 Puff(s) INH QID 05/31/20 18 2017 Inactive Aleve 220 mg capsule RxNorm: 7618280 1 Capsule(s) PO BID 05/31/20 18 2018 Inactive ranitidine 150 mg tablet RxNorm: 789918 1 Tablet(s) PO BID 05/31/20 18 2017 Inactive gabapentin 300 mg capsule RxNorm: 327116 1 Capsule(s) PO TID as needed 05/31/20 18 2017 Inactive atorvastatin 20 mg tablet RxNorm: 336465 1 Tablet(s) PO QHS 05/31/20 18 2017 Inactive True Metrix Glucose Test Strip RxNorm: 1 Test Strips Miscellaneous QAM 05/31/20 18 2017 Inactive 50/container Calcium 600-D3 Plus 600 mg calcium-800 unit-50 mg tablet RxNorm: 1 Tablet(s) PO daily take an additonal tablet for itching. 05/31/20 18 2017 Inactive hydrochlorothiazide 12.5 mg tablet RxNorm: 140694 1 Tablet(s) PO QAM 05/31/20 18 2017 Inactive Flintstones Complete (iron) 18 mg iron chewable tablet RxNorm: 1 Tablet(s) PO daily 05/31/20 18 2017 Inactive True Metrix Glucose Meter RxNorm: miscellaneous 08/17/20 19 2018 Inactive sertraline 50 mg tablet RxNorm: 129425 1 Tablet(s) PO daily 11/28/19 20 2019 Inactive loperamide 2 mg tablet RxNorm: 726594 oral 09/29/20 19 2018 Inactive d-mannose oral powder RxNorm: PO 18 2021 Inactive Symbicort 160 mcg-4.5 mcg/actuation HFA aerosol inhaler RxNorm: 0662519 2 Puff(s) INH BID 08/17/20 19 2018 Inactive Medication Administered No Medication Administered data Procedures Procedure Codes Date Urinalysis, dip stick CPT-4: 39975 06/21/2019 Tobacco Assessment/Screening CPT-4: TCA Patient Health Questionnaire CPT-4: DPHQ AHA/REBECCA Classification Assessment CPT-4: DAHA 04/25/2019 Controlled Substance Report CPT-4: CTRSU 04/03 Urinalysis, dip stick CPT-4: 75514 03/28/2019 Urinalysis, dip stick CPT-4: 00509 03/28/[address]: 431814837 CPT-4: F51Gorvdse Reason For Visit No Reason For Visit data Plan of Care Planned Activity Notes Codes Status Date Referral: Pending Gynecology Referral Informatio n Referral ProcessedReferral: Pending Pulmonology Referral InformationReferralProcessed Referral: Pending Psychiatry Referral InformationReferralInitiatedReferral: Pending Respiratory Services Referral InformationReferralInitiatedReferral: Pending Ophthalmology Referral InformationReferralInitiatedReferral: [facility] WPtel: [address] [place] [address] USWriter placed a call out to the patient to notify her that it has been recommended that she be seenby 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 Patient agreed to be seen, does not have a provider of choice and no transportationissues. Spectral Scientist faxed referral and clinical notes to [facility] in [place], [place] near the patient's home. Patient to [...] seen and prefers a provider in the [place] or [facility]. Spectral Scientist placed a call out to everyone listed in the area and the only location that was able to accept the patient's insurance was [place] [address] [place] [address] and spoke with Maylin. Maylin asked that the patient's referral, face sheet and visit notes be faxed to . Spectral Scientist faxed over requested documents. Patient appointment confirmation letter generated and mailed to her home address. Patient to call to schedule an appointment.ProcessedReferral: [facility] WPtel: [id number] USPatient notified that it has been advised that she be seen by Neurology. Patient agreed to be seen and prefers to be seen by a provider in the [place], [place] area. Patient denies any concerns with transportation, and prefers to schedule her own appointment. Spectral Scientist placed a call out to [facility] and spoke with Neeraj P: who confirmed that their office is able to acceptnew patients and the patient's insurance. After confirming the providers fax number, comic writer faxed over the patient's referral, and [...]
--- OUTSIDE RECORDS SUMMARY | 2019-06-25 20:00 | XMS_ITS | CCD ---
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 Shipping Clerk/Admin Name Role Phone Palomo KING, Anna Primary Care Provider Unav ailable Unavailable Chronic Care Management Unavaila ble Summary Purpose DataExchange Insurance Providers Payer name Policy type / Coverage type Covered libertarian ID Effective Begin Date Effective End Date [facility] [id number] Unknown Unknown Family history Mother Diagnosis Age [...] 05/31/2018 Education level Unknown Some High School 10th05/31/20182386DaxwmczxibFolzhfsLbpmntuono66/29/2018Tobacco historySNOMED CT: 936936483Dbj never smoked or chewed xyvrfku2105/31/2018Alcohol historySNOMED CT: 391522286Wgwht drinks zqasjrz3805/31/2018Has the patient ever used illegal drugs? UnknownHas never used illegal drugs05/31/2018DNR Order/ Advanced Directive UnknownFull Code05/31/2018 Allergies, Adverse Reactions, Alerts Substance Reaction Codes Entered Date Inactivated Date Status *No known food allergies Gcboapb8109/06/2018No Inactive DateActiveMethylprednisolonehivesRxNorm: 6902 09/06/2018No Inactive DateActive Problems [...] malignant neoplasm of cervixICD-10: Z12.4 ICD-9: V76.207ActiveOther remote computer terminal operator (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ICD-10: Z79.899 [...] Fill Instructions hydrochlorothiazide 12.5 mg tablet RxNorm: 196550 1 Tablet(s) PO QAM 06/26/20 19 2019 Inactive levmetamfetamine 50 mg nasal inhaler RxNorm: 1 Unit(s) NASAL Q3-4H Do not use more than every 3 hours or 8 times/24hours 06/26/20 19 2021 Inactive Please do not auto refill. This refill negates all other refills of this medication Ventolin HFA 90 mcg/actuation aerosol inhaler RxNorm: 054179 2 Puff(s) INH QID 06/26/20 19 2018 Inactive Please do not fill early. Please do not auto refill. This refill negates all other refills of this medication Singulair 10 mg tablet RxNorm: 026845 1 Tablet(s) PO daily 06/26/20 19 2019 Inactive This refill negates all other refills of this medication cetirizine 10 mg tablet RxNorm: 3825171 1 Tablet(s) PO daily 06/26/20 19 2019 Inactive This refill negates all other refills of this medication. Please do not auto refill levothyroxine 50 mcg tablet RxNorm: 316145 1 Tablet(s) PO daily 06/26/20 19 2019 Inactive This refill negates all other refills of this medication diclofenac sodium 75 mg tablet,delayed release RxNorm: 955916 1 Tablet(s) PO BID 06/26/20 19 2019 Inactive This refill negates all other refills of this medication ranitidine 150 mg tablet RxNorm: 027887 1 Tablet(s) PO BID 06/26/20 19 2018 Inactive This refill negates all other refills of this medication buspirone 7.5 mg tablet RxNorm: 813836 1 Tablet(s) PO BID 06/26/20 19 2020 Inactive This refill negates all other refills of this medication Calcium 600-D3 Plus (mag-zinc) 600 mg calcium-800 unit-50 mg tablet RxNorm: 1 Tablet(s) PO daily take an additonal tablet for itching. 06/26/20 19 2018 Inactive This refill negates all other refills of this medication albuterol sulfate 2.5 mg/3 mL (0.083 %) solution for nebulization RxNorm: 756297 1 Vial INH QID 06/26/20 19 2018 Inactive 60/box. This refill negates all other refills of this medication. Please do not fill early. Please do not auto refill. lisinopril 2.5 mg tablet RxNorm: 181524 1 Tablet(s) PO daily 06/21/20 19 2019 Inactive gabapentin 300 mg capsule RxNorm: 443195 1 Capsule(s) PO TID 06/21/20 19 2019 Inactive atorvastatin 20 mg tablet RxNorm: 031396 1 Tablet(s) PO QHS 06/07/20 19 2018 Inactive This refill negates all other refills of this medication TRUEplus Lancets 30 gauge RxNorm: 1 Lancets Miscellaneous QAM 05/29/20 19 2018 Inactive 100/box gabapentin 300 mg capsule RxNorm: 296733 1 Capsule(s) PO TID 05/03/202018 Inactive Flintstones Complete (iron) 18 mg iron chewable tablet RxNorm: 1 Tablet(s) PO daily 04/04/202021 Inactive This refill negates all other refills of this medication True Metrix Glucose Test Strip RxNorm: 1 Test Strips Miscellaneous QA 02/01/202018 Inactive 100/container Alcohol Prep Pads RxNorm: 940856 1 Patch TOP QA 02/01/202018 Inactive gabapentin 300 mg capsule RxNorm: 480031 1 Capsule(s) PO TID as needed 02/01/202018 Inactive TRUEplus Lancets 30 gauge RxNorm: 1 Lancets Miscellaneous QA 02/01/202018 Inactive 100/box lisinopril 2.5 mg tablet RxNorm: 946695 1 Tablet(s) PO daily 12/28/192018 Inactive ranitidine 150 mg tablet RxNorm: 335545 1 Tablet(s) PO BID 10/21/192018 Inactive This refill negates all other refills of this medication albuterol sulfate 2.5 mg/3 mL (0.083 %) solution for nebulization RxNorm: 609340 1 Vial INH QID 10/21/192018 Inactive 60/box. [...] this medication gabapentin 300 mg capsule RxNorm: 294608 1 Capsule(s) PO TID as needed 10/21/192018 Inactive atorvastatin 20 mg tablet RxNorm: 878532 1 Tablet(s) PO QHS 10/21/192018 Inactive This refill negates all other refills of this medication trazodone 50 mg tablet RxNorm: 741630 1 Tablet(s) PO QHS 10/21/19 19 2018 Inactive This refill negates all other refills of this medication Ventolin HFA 90 mcg/actuation aerosol inhaler RxNorm: 801728 2 Puff(s) INH QID 10/21/19 19 2018 Inactive Please do not fill early. Please do not auto refill. This refill negates all other refills of this medication Calcium 600-D3 Plus 600 mg calcium-800 unit-50 mg tablet RxNorm: 1 Tablet(s) PO daily take an additonal tablet for itching. 10/21/192018 Inactive This refill negates all other refills of this medication Singulair 10 mg tablet RxNorm: 676710 1 Tablet(s) PO daily 10/21/19 19 2018 Inactive This refill negates all other refills of this medication buspirone 7.5 mg tablet RxNorm: 533562 1 Tablet(s) PO BID 10/21/19 19 2018 Inactive This refill negates all other refills of this medication diclofenac sodium 75 mg tablet,delayed release RxNorm: 487578 1 Tablet(s) PO BID 10/21/19 19 2018 Inactive This refill negates all other refills of this medication hydrochlorothiazide 12.5 mg tablet RxNorm: 868588 1 Tablet(s) PO QAM 10/21/192018 Inactive metoprolol succinate ER 50 mg tablet,extended release 24 hr RxNorm: 464435 1 Tablet(s) PO daily 10/21/192018 Inactive This refill negates all other refills of this medication levothyroxine 50 mcg tablet RxNorm: 262184 1 Tablet(s) PO daily 10/21/192018 Inactive This refill negates all other refills of this medication cetirizine 10 mg tablet RxNorm: 1677555 1 Tablet(s) PO daily 10/21/19 19 2018 Inactive This refill negates all other refills of this medication. Please do not auto refill Flintstones Complete (iron) 18 mg iron chewable tablet RxNorm: 1 Tablet(s) PO daily 10/21/19 19 2018 Inactive This refill negates all other refills of this medication buspirone 7.5 mg tablet RxNorm: 547491 1 Tablet(s) PO BID 10/12/19 19 2018 Inactive cetirizine 10 mg tablet RxNorm: 4089910 1 Tablet(s) PO daily 09/28/20 18 2018 Inactive Guaiasorb DM 10 mg-100 mg/5 mL oral liquid RxNorm: 413631 10 Milliliter(s) PO As needed every 4 hr 09/24/20 18 2018 Inactive Vicks Vaporub 4.7 %-1.2 %-2.6 % topical ointment RxNorm: 0392845 1 Application TOP TID 09/24/20 18 2018 Inactive levmetamfetamine 50 mg nasal inhaler RxNorm: 1 Unit(s) NASAL Q3-4H 09/24/20 18 2017 Inactive sertraline 50 mg tablet RxNorm: 722769 1 Tablet(s) PO daily 09/09/20 18 2018 Inactive Please note dose trazodone 50 mg tablet RxNorm: 695999 1 Tablet(s) PO QHS 09/06/20 18 2018 Inactive sertraline 50 mg tablet RxNorm: 531305 1 Tablet(s) PO daily 09/06/20 18 2017 Inactive amoxicillin 500 mg tablet RxNorm: 560607 1 Tablet(s) PO Q12H 08/31/20 18 2017 Inactive albuterol sulfate 2.5 mg/3 mL (0.083 %) solution for nebulization RxNorm: 199132 1 Vial INH QID 08/10/20 18 2018 Inactive 60/box. Please do not fill early. Please do not auto refill. Prozac 10 mg capsule RxNorm: 210641 1 Capsule(s) PO daily 08/09/20 18 2017 Inactive buspirone 7.5 mg tablet RxNorm: 970018 1 Tablet(s) PO BID 08/09/20 18 2018 Inactive gabapentin 300 mg capsule RxNorm: 910330 1 Capsule(s) PO TID as needed 08/01/20 18 2018 Inactive hydrochlorothiazide 12.5 mg tablet RxNorm: 439871 1 Tablet(s) PO QAM 08/01/20 18 2018 Inactive ranitidine 150 mg tablet RxNorm: 252619 1 Tablet(s) PO BID 08/01/20 18 2018 Inactive Macrobid 100 mg capsule RxNorm: 419674 1 Capsule(s) PO Q12H 06/21/20 18 2017 Inactive Singulair 10 mg tablet RxNorm: 227583 1 Tablet(s) PO daily 06/14/20 18 2018 Inactive Ventolin HFA 90 mcg/actuation aerosol inhaler RxNorm: 7939066 2 Puff(s) INH QID 06/14/20 18 2018 Inactive Singulair 10 mg tablet RxNorm: 113065 1 Tablet(s) PO daily 06/14/20 18 2017 Inactive buspirone 7.5 mg tablet RxNorm: 489919 1 Tablet(s) PO BID 06/14/20 18 2017 Inactive Prozac 10 mg capsule RxNorm: 733756 1 Capsule(s) PO daily 06/14/20 18 2017 Inactive Neilmed Pediatric Sinus Rinse Refill packet RxNorm: 1 Unit Dose NASAL PRN 05/31/20 18 2021 Inactive diclofenac sodium 75 mg tablet,delayed release RxNorm: 099892 1 Tablet(s) PO BID 05/31/20 18 2017 Inactive lisinopril 2.5 mg tablet RxNorm: 964061 1 Tablet(s) PO daily 05/31/20 18 2017 Inactive metoprolol succinate ER 50 mg tablet,extended release 24 hr RxNorm: 535888 1 Tablet(s) PO daily 05/31/20 18 2017 Inactive levothyroxine 50 mcg tablet RxNorm: 689838 1 Tablet(s) PO daily 05/31/20 18 2017 Inactive TRUEplus Lancets 30 gauge RxNorm: 1 Lancets Miscellaneous QAM 05/31/20 18 2017 Inactive 100/box Ventolin HFA 90 mcg/actuation aerosol inhaler RxNorm: 240398 2 Puff(s) INH QID 05/31/20 18 2017 Inactive Aleve 220 mg capsule RxNorm: 8841323 1 Capsule(s) PO BID 05/31/20 18 2018 Inactive ranitidine 150 mg tablet RxNorm: 036242 1 Tablet(s) PO BID 05/31/20 18 2017 Inactive gabapentin 300 mg capsule RxNorm: 396534 1 Capsule(s) PO TID as needed 05/31/20 18 2017 Inactive atorvastatin 20 mg tablet RxNorm: 811758 1 Tablet(s) PO QHS 05/31/20 18 2017 Inactive True Metrix Glucose Test Strip RxNorm: 1 Test Strips Miscellaneous QAM 05/31/20 18 2017 Inactive 50/container Calcium 600-D3 Plus 600 mg calcium-800 unit-50 mg tablet RxNorm: 1 Tablet(s) PO daily take an additonal tablet for itching. 05/31/20 18 2017 Inactive hydrochlorothiazide 12.5 mg tablet RxNorm: 447928 1 Tablet(s) PO QAM 05/31/20 18 2017 Inactive Flintstones Complete (iron) 18 mg iron chewable tablet RxNorm: 1 Tablet(s) PO daily 05/31/20 18 2017 Inactive True Metrix Glucose Meter RxNorm: miscellaneous 08/17/20 19 2018 Inactive sertraline 50 mg tablet RxNorm: 480240 1 Tablet(s) PO daily 11/28/19 20 2019 Inactive loperamide 2 mg tablet RxNorm: 405620 oral 09/29/20 19 2018 Inactive d-mannose oral powder RxNorm: PO 18 2021 Inactive Symbicort 160 mcg-4.5 mcg/actuation HFA aerosol inhaler RxNorm: 2303774 2 Puff(s) INH BID 08/17/20 19 2018 Inactive Medication Administered No Medication Administered data Procedures Procedure Codes Date Urinalysis, dip stick CPT-4: 74376 06/21/2019 Tobacco Assessment/Screening CPT-4: TCA Patient Health Questionnaire CPT-4: DPHQ AHA/REBECCA Classification Assessment CPT-4: DAHA 04/25/2019 Controlled Substance Report CPT-4: CTRSU 04/03 Urinalysis, dip stick CPT-4: 92820 03/28/2019 Urinalysis, dip stick CPT-4: 07659 03/28/[address]: [id number] CPT-4: [id number] Reason For Visit No Reason For Visit data Plan of Care Planned Activity Notes Codes Status Date Referral: Pending Gynecology Referral Informatio n Referral ProcessedReferral: Pending Pulmonology Referral InformationReferralProcessed Referral: Pending Psychiatry Referral InformationReferralInitiatedReferral: Pending Respiratory Services Referral InformationReferralInitiatedReferral: Pending Ophthalmology Referral InformationReferralInitiatedReferral: [facility] WPtel: [address] [place] [address] USWriter placed a call out to the patient to notify her that it has been recommended that she be seenby 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 Patient agreed to be seen, does not have a provider of choice and no transportationissues. Hair Preparer faxed referral and clinical notes to [facility] in [place], [place] near the patient's home. Patient to [...] seen and prefers a provider in the [place] or [facility]. Hair Preparer placed a call out to everyone listed in the area and the only location that was able to accept the patient's insurance was [place] [address] [place] [address] and spoke with Maylin. Maylin asked that the patient's referral, face sheet and visit notes be faxed to . Hair Preparer faxed over requested documents. Patient appointment confirmation letter generated and mailed to her home address. Patient to call to schedule an appointment.ProcessedReferral: [facility] WPtel: [address] [id number] USPatient notified that it has been advised that she be seen by Neurology. Patient agreed to be seen and prefers to be seen by a provider in the [place], [place] area. Patient denies any concerns with transportation, and prefers to schedule her own appointment. Hair Preparer placed a call out to [facility] and spoke with Neeraj P: who confirmed that their office is able to acceptnew patients and the patient's insurance. After confirming the providers fax number, tech writer faxed over the patient's referral, and [...]
--- OUTSIDE RECORDS SUMMARY | 2019-07-11 20:00 | XMS_ITS | CCD ---
Author Name Maricarmen KING, Sudha Address [address] [place] [address] Phone Organization [facility] [employer] [facility] [employer] [facility] Phone Care Team Providers Care Hearing Health Technician Name Role Phone Palomo KING, Anna Primary Care Provider Unav ailable Unavailable Chronic Care Management Unavaila ble Summary Purpose DataExchange Insurance Providers Payer name Policy type / Coverage type Covered constitution party ID Effective Begin Date Effective End Date [facility] [id number] Unknown Unknown Family history Mother Diagnosis Age [...] 05/31/2018 Education level Unknown Some High School 10th05/31/20189636MaqianebpsVaqmqzpHypbtxeuqx29/29/2018Tobacco historySNOMED CT: 138908421Xvz never smoked or chewed iwfodzy9905/31/2018Alcohol historySNOMED CT: 904906191Mvbmb drinks apwdici4105/31/2018Has the patient ever used illegal drugs? UnknownHas never used illegal drugs05/31/2018DNR Order/ Advanced Directive UnknownFull Code05/31/2018 Allergies, Adverse Reactions, Alerts Substance Reaction Codes Entered Date Inactivated Date Status *No known food allergies Aefeaie9809/06/2018No Inactive DateActiveMethylprednisolonehivesRxNorm: 6902 09/06/2018No Inactive DateActive Problems Condition Codes Effective Dates Condition St atus Chronic kidney disease, unspecified ICD- 10: N18.9 ICD-9: 585.909ActiveEssential (primary) hypertensionICD-10: I10 ICD-9: 401.901ActiveHypertensive heart disease with heart failureICD-10: I11.0 ICD-9: 402.9107/ActiveHypothyroidism, unspecifiedICD-10: E03.9 ICD-9: 244.912/01/2018ActiveMixed incontinenceICD-10: N39.46 ICD-9: 788.3308ActiveType 2 diabetes mellitus without complicationsICD- 10: E11.9 ICD-9: 250.0001/10/2018ActiveHyperlipidemia, unspecifiedICD-10: E78.5 ICD-9: 272.408/ActiveObstructive sleep apnea (adult) (pediatric)ICD-10: G47.33 ICD-9: 327.2309ActiveApnea, not elsewhere classifiedICD-10: R06.81 ICD-9: 786.0305ActiveEncounter for immunizationICD-10: Z23 ICD-9: V03.907/ActiveEncounter for screening, unspecifiedICD-10: Z13.9 ICD-9: V82.912ActiveUnspecified asthma, uncomplicatedICD-10: J45.909 ICD-9: 493.9011ActivePolyneuropathy, unspecifiedICD-10: G62.9 ICD-9: 356.908ActivePatient Not SeenICD-10: UXZ.01 ICD-9: XZ0.107ActiveEncounter for screening for malignant neoplasm of cervixICD-10: Z12.4 ICD-9: V76.207/ActiveOther custodial (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ICD-10: Z79.899 ICD-9: V58.6907ActiveBody mass index (BMI) 50-59.9 , adultICD-10: Z68.43 ICD-9: V85.4308ActiveChest pain, unspecifiedICD-10: R07.9 ICD-9: 786.5002ActiveEncounter for preprocedural cardiovascular examinationICD-10: Z01.810 ICD-9: V72.8106ActiveDyspnea, unspecifiedICD-10: R06.00 ICD-9: 786.0902/08/2019ActivePost-traumatic stress disorder, unspecifiedICD-10: F43.10 ICD-9: 309.8112ActiveWheezingICD-10: R06.2 ICD-9: 786.0711ActiveAbnormal electrocardiogram [ECG] [EKG]ICD-10: R94.31 ICD-9: 794.3108ActiveEdema, unspecifiedICD-10: R60.9 ICD-9: 782.310ActiveAdjustment disorder with mixed anxiety and depressed moodICD-10: F43.23 ICD-9: 309.2812ActiveHeadacheICD-10: R51 ICD-9: 784.001ActiveAcute upper respiratory infection, unspecifiedICD- 10: J06.9 ICD-9: 465.912ResolvedLong term (current) use of non-steroidal anti- inflammatories (NSAID)ICD-10: Z79.1 ICD-9: V58.6409Active Medications Medication Codes Instructions Start Date Stop Date Status Fill Instructions atorvastatin 40 mg tablet RxNorm: 615368 1 Tablet(s) Oral every day 07/04/20 19 2019 Inactive hydrochlorothiazide 12.5 mg tablet RxNorm: 177884 1 Tablet(s) PO QAM 06/26/20 19 2019 Inactive levmetamfetamine 50 mg nasal inhaler RxNorm: 1 Unit(s) NASAL Q3-4H Do not use more than every 3 hours or 8 times/24hours 06/26/202021 Inactive Please do not auto refill. This refill negates all other refills of this medication Ventolin HFA 90 mcg/actuation aerosol inhaler RxNorm: 942377 2 Puff(s) INH QID 06/26/20 19 2018 Inactive Please do not fill early. Please do not auto refill. This refill negates all other refills of this medication Singulair 10 mg tablet RxNorm: 230842 1 Tablet(s) PO daily 06/26/20 19 2019 Inactive This refill negates all other refills of this medication cetirizine 10 mg tablet RxNorm: 4482030 1 Tablet(s) PO daily 06/26/20 19 2019 Inactive This refill negates all other refills of this medication. Please do not auto refill levothyroxine 50 mcg tablet RxNorm: 157382 1 Tablet(s) PO daily 06/26/20 19 2019 Inactive This refill negates all other refills of this medication diclofenac sodium 75 mg tablet,delayed release RxNorm: 146774 1 Tablet(s) PO BID 06/26/20 19 2019 Inactive This refill negates all other refills of this medication ranitidine 150 mg tablet RxNorm: 956870 1 Tablet(s) PO BID 06/26/20 19 2018 Inactive This refill negates all other refills of this medication buspirone 7.5 mg tablet RxNorm: 561171 1 Tablet(s) PO BID 06/26/20 19 2020 Inactive This refill negates all other refills of this medication Calcium 600-D3 Plus (mag-zinc) 600 mg calcium-800 unit-50 mg tablet RxNorm: 1 Tablet(s) PO daily take an additonal tablet for itching. 06/26/20 19 2018 Inactive This refill negates all other refills of this medication albuterol sulfate 2.5 mg/3 mL (0.083 %) solution for nebulization RxNorm: 687594 1 Vial INH QID 06/26/20 19 2018 Inactive 60/box. This refill negates all other refills of this medication. Please do not fill early. Please do not auto refill. lisinopril 2.5 mg tablet RxNorm: 524867 1 Tablet(s) PO daily 06/21/20 19 2019 Inactive gabapentin 300 mg capsule RxNorm: 368381 1 Capsule(s) PO TID 06/21/20 19 2019 Inactive atorvastatin 20 mg tablet RxNorm: 067067 1 Tablet(s) PO QHS 06/07/20 19 2018 Inactive This refill negates all other refills of this medication TRUEplus Lancets 30 gauge RxNorm: 1 Lancets Miscellaneous QAM 05/29/20 19 2018 Inactive 100/box gabapentin 300 mg capsule RxNorm: 347017 1 Capsule(s) PO TID 05/03/20 19 2018 Inactive Flintstones Complete (iron) 18 mg iron chewable tablet RxNorm: 1 Tablet(s) PO daily 04/04/20 19 2021 Inactive This refill negates all other refills of this medication True Metrix Glucose Test Strip RxNorm: 1 Test Strips Miscellaneous QAM 02/01/20 19 2018 Inactive 100/container Alcohol Prep Pads RxNorm: 790109 1 Patch TOP QAM 02/01/20 19 2018 Inactive gabapentin 300 mg capsule RxNorm: 002002 1 Capsule(s) PO TID as needed 02/01/20 19 2018 Inactive TRUEplus Lancets 30 gauge RxNorm: 1 Lancets Miscellaneous QAM 02/01/20 19 2018 Inactive 100/box lisinopril 2.5 mg tablet RxNorm: 487083 1 Tablet(s) PO daily 12/28/19 19 2018 Inactive ranitidine 150 mg tablet RxNorm: 619405 1 Tablet(s) PO BID 10/21/19 19 2018 Inactive This refill negates all other refills of this medication albuterol sulfate 2.5 mg/3 mL (0.083 %) solution for nebulization RxNorm: 969484 1 Vial INH QID 10/21/19 19 2018 [...] this medication gabapentin 300 mg capsule RxNorm: 928720 1 Capsule(s) PO TID as needed 10/21/19 19 2018 Inactive atorvastatin 20 mg tablet RxNorm: 515533 1 Tablet(s) PO QHS 10/21/19 19 2018 Inactive This refill negates all other refills of this medication trazodone 50 mg tablet RxNorm: 973621 1 Tablet(s) PO QHS 10/21/19 19 2018 Inactive This refill negates all other refills of this medication Ventolin HFA 90 mcg/actuation aerosol inhaler RxNorm: 020247 2 Puff(s) INH QID 10/21/19 19 2018 Inactive Please do not fill early. Please do not auto refill. This refill negates all other refills of this medication Calcium 600-D3 Plus 600 mg calcium-800 unit-50 mg tablet RxNorm: 1 Tablet(s) PO daily take an additonal tablet for itching. 10/21/192018 Inactive This refill negates all other refills of this medication Singulair 10 mg tablet RxNorm: 433673 1 Tablet(s) PO daily 10/21/192018 Inactive This refill negates all other refills of this medication buspirone 7.5 mg tablet RxNorm: 334036 1 Tablet(s) PO BID 10/21/192018 Inactive This refill negates all other refills of this medication diclofenac sodium 75 mg tablet,delayed release RxNorm: 753280 1 Tablet(s) PO BID 10/21/192018 Inactive This refill negates all other refills of this medication hydrochlorothiazide 12.5 mg tablet RxNorm: 345876 1 Tablet(s) PO QAM 10/21/19 19 2018 Inactive metoprolol succinate ER 50 mg tablet,extended release 24 hr RxNorm: 858398 1 Tablet(s) PO daily 10/21/19 19 2018 Inactive This refill negates all other refills of this medication levothyroxine 50 mcg tablet RxNorm: 450102 1 Tablet(s) PO daily 10/21/19 19 2018 Inactive This refill negates all other refills of this medication cetirizine 10 mg tablet RxNorm: 6167728 1 Tablet(s) PO daily 10/21/19 19 2018 Inactive This refill negates all other refills of this medication. Please do not auto refill Flintstones Complete (iron) 18 mg iron chewable tablet RxNorm: 1 Tablet(s) PO daily 10/21/19 19 2018 Inactive This refill negates all other refills of this medication buspirone 7.5 mg tablet RxNorm: 857107 1 Tablet(s) PO BID 10/12/19 19 2018 Inactive cetirizine 10 mg tablet RxNorm: 1763333 1 Tablet(s) PO daily 09/28/20 18 2018 Inactive Guaiasorb DM 10 mg-100 mg/5 mL oral liquid RxNorm: 759723 10 Milliliter(s) PO As needed every 4 hr 09/24/202018 Inactive Vicks Vaporub 4.7 %-1.2 %-2.6 % topical ointment RxNorm: 5012723 1 Application TOP TID 09/24/20 18 2018 Inactive levmetamfetamine 50 mg nasal inhaler RxNorm: 1 Unit(s) NASAL Q3-4H 09/24/20 18 2017 Inactive sertraline 50 mg tablet RxNorm: 778040 1 Tablet(s) PO daily 09/09/20 18 2018 Inactive Please note dose trazodone 50 mg tablet RxNorm: 243553 1 Tablet(s) PO QHS 09/06/20 18 2018 Inactive sertraline 50 mg tablet RxNorm: 756069 1 Tablet(s) PO daily 09/06/20 18 2017 Inactive amoxicillin 500 mg tablet RxNorm: 872450 1 Tablet(s) PO Q12H 08/31/20 18 2017 Inactive albuterol sulfate 2.5 mg/3 mL (0.083 %) solution for nebulization RxNorm: 664036 1 Vial INH QID 08/10/20 18 2018 Inactive 60/box. Please do not fill early. Please do not auto refill. Prozac 10 mg capsule RxNorm: 508552 1 Capsule(s) PO daily 08/09/20 18 2017 Inactive buspirone 7.5 mg tablet RxNorm: 788407 1 Tablet(s) PO BID 08/09/20 18 2018 Inactive gabapentin 300 mg capsule RxNorm: 065686 1 Capsule(s) PO TID as needed 08/01/20 18 2018 Inactive hydrochlorothiazide 12.5 mg tablet RxNorm: 416946 1 Tablet(s) PO QAM 08/01/20 18 2018 Inactive ranitidine 150 mg tablet RxNorm: 035740 1 Tablet(s) PO BID 08/01/20 18 2018 Inactive Macrobid 100 mg capsule RxNorm: 223336 1 Capsule(s) PO Q12H 06/21/20 18 2017 Inactive Singulair 10 mg tablet RxNorm: 374701 1 Tablet(s) PO daily 06/14/20 18 2018 Inactive Ventolin HFA 90 mcg/actuation aerosol inhaler RxNorm: 5867965 2 Puff(s) INH QID 06/14/20 18 2018 Inactive Singulair 10 mg tablet RxNorm: 956647 1 Tablet(s) PO daily 06/14/20 18 2017 Inactive buspirone 7.5 mg tablet RxNorm: 787729 1 Tablet(s) PO BID 06/14/20 18 2017 Inactive Prozac 10 mg capsule RxNorm: 321929 1 Capsule(s) PO daily 06/14/20 18 2017 Inactive Neilmed Pediatric Sinus Rinse Refill packet RxNorm: 1 Unit Dose NASAL PRN 05/31/20 18 2021 Inactive diclofenac sodium 75 mg tablet,delayed release RxNorm: 938577 1 Tablet(s) PO BID 05/31/20 18 2017 Inactive lisinopril 2.5 mg tablet RxNorm: 936756 1 Tablet(s) PO daily 05/31/20 18 2017 Inactive metoprolol succinate ER 50 mg tablet,extended release 24 hr RxNorm: 799739 1 Tablet(s) PO daily 05/31/20 18 2017 Inactive levothyroxine 50 mcg tablet RxNorm: 786332 1 Tablet(s) PO daily 05/31/20 18 2017 Inactive TRUEplus Lancets 30 gauge RxNorm: 1 Lancets Miscellaneous QAM 05/31/20 18 2017 Inactive 100/box Ventolin HFA 90 mcg/actuation aerosol inhaler RxNorm: 158649 2 Puff(s) INH QID 05/31/20 18 2017 Inactive Aleve 220 mg capsule RxNorm: 2442836 1 Capsule(s) PO BID 05/31/20 18 2018 Inactive ranitidine 150 mg tablet RxNorm: 535251 1 Tablet(s) PO BID 05/31/20 18 2017 Inactive gabapentin 300 mg capsule RxNorm: 500490 1 Capsule(s) PO TID as needed 05/31/20 18 2017 Inactive atorvastatin 20 mg tablet RxNorm: 426762 1 Tablet(s) PO QHS 05/31/20 18 2017 Inactive True Metrix Glucose Test Strip RxNorm: 1 Test Strips Miscellaneous QAM 05/31/20 18 2017 Inactive 50/container Calcium 600-D3 Plus 600 mg calcium-800 unit-50 mg tablet RxNorm: 1 Tablet(s) PO daily take an additonal tablet for itching. 05/31/20 18 2017 Inactive hydrochlorothiazide 12.5 mg tablet RxNorm: 077296 1 Tablet(s) PO QAM 05/31/20 18 2017 Inactive Flintstones Complete (iron) 18 mg iron chewable tablet RxNorm: 1 Tablet(s) PO daily 05/31/20 18 2017 Inactive True Metrix Glucose Meter RxNorm: miscellaneous 08/17/20 19 2018 Inactive sertraline 50 mg tablet RxNorm: 478548 1 Tablet(s) PO daily 11/28/19 20 2019 Inactive loperamide 2 mg tablet RxNorm: 205447 oral 09/29/20 19 2018 Inactive d-mannose oral powder RxNorm: PO 18 2021 Inactive Symbicort 160 mcg-4.5 mcg/actuation HFA aerosol inhaler RxNorm: 8455384 2 Puff(s) INH BID 08/17/20 19 2018 Inactive Medication Administered No Medication Administered data Results Observation Observation Code Item Item Code Result Date S ervice Location COMPLETE CBC W/ DIFF WBC 79884 WBC 6690-2 8.0 K/ul 07/06/2019 [facility] [address], [place] [address]ZWVIBKCJ CBC W/ DIFF [id number] M/uL07/06/2019 [facility] [address], [place] [address]JRXQMUDA CBC W/ DIFF AXK91980Erqghzqhve749-070.8 g/dL07/06/2019 [facility] [address], [place] [address]ZAELPEVN CBC W/ DIFF ZGY32967Mauvejkpzc0438-536.8 %07/06/2019 [facility] [address], [place] [address]AKNZGWSH CBC W/ DIFF DRU25062ZYB566-483.4 fL07/06/2019 [facility] [address], [place] [address]LCRKLKCX CBC W/ DIFF OWE39533MJH946-888.9 pg07/06/2019 [facility] [address], [place] [address]DXXYJOAC CBC W/ DIFF HXZ36949EZZG394-654.0 g/dL07/06/2019 [facility] [address], [place] [address]UEDVHYGY CBC W/ DIFF MZB71528TTI888-379.5 %07/06/2019 [facility] [address], [place] [address]WUMWAOVY CBC W/ DIFF TAQ68184Waxsqerg Mbpcg895-4079 K/uL07/06/2019 [facility] [address], [place] [address]XEOHHURG CBC W/ DIFF ZQT91765BNL06126-81.9 fL07/06/2019 [facility] [address], [place] [address]BVNHIIQA CBC W/ DIFF FVC62454Iwmggsnwlcm %770-862.5 %07/06/2019 [facility] [address], [place] [address]TVPCLMOS CBC W/ DIFF WEP71578Dvkzodmingr %736-931.4 %07/06/2019 [facility] [address], [place] [address]KVNHONAC CBC W/ DIFF YRA35519Nsokgibzf %5905-55.1 %07/06/2019 [facility] [address], [place] [address]CJOAJSLZ CBC W/ DIFF KGG64270Odxgsmopabc %713-80.5 %07/06/2019 [facility] [address], [place] [address]URKXCFSW CBC W/ DIFF WVC81983Jshwmrkxw%706-20.5 %07/06/2019 [facility] [address], [place] [address]TJQPQBAT CBC W/ DIFF MUD83631Phvaswgk Xkhwaegfce070-69477 /ul 07/06/2019 [facility] [address], [place] [address]SBQKWBJW CBC W/ DIFF CLS43137Phigqxft Qtsplziajg10246-93835 /ul 07/06/2019 [facility] [address], [place] [address]SUCXHPHN CBC W/ DIFF VXY65086Cxzaxewv Ilrieokc169-5797 /ul 07/06/2019 [facility] [address], [place] [address]VTMPOAAF CBC W/ DIFF SFG31588Rkmgrliw Ektysnjfzr319-722 /ul 07/06/2019 [facility] [address], [place] [address]PTJYBGXH CBC W/ DIFF EHU61008Dvwfkpfi Jgxpoiqr676-635 /ul07/06/2019 [facility] [address], [place] [address]EGAVWJARF505[address]Usawjenel52002-39.3 mg/dL07/05/2019 [facility] [address], [place] [address]UTFA QYOI82440Owwk Xobv3639-54.0 mg/dL07/05/2019 [facility] [address], [place] [address]FME53911HUT4445-486.9 pg/mL07/05/2019 [facility] [address], [place] [address]RMOY 14 (METABOLIC PANEL)51174Mnxetsl6043-864 mg/dL07/05/2019 [facility] [address] [facility] [place], [place] [address]CPIP 14 (METABOLIC PANEL)99797WWJ8468-987 mg/dL07/05/2019 [facility] [address], [place] [address]KSMP 14 (METABOLIC PANEL)80420Dcroygeddp9252-00.7 mg/dL07/05/2019 [facility] [address], [place] [address]JMFT 14 (METABOLIC PANEL)76[address]VJZ/Creat Vlnoz4874-797.510 [facility] [address], [place] [address]SGXB 14 (METABOLIC PANEL)[address]IAE Sdxcswwzz49258-837 mL/min/1.73m2 07/05/2019 [facility] [address], [place] [address]LFGK 14 (METABOLIC PANEL)01430UYE Estimated for Americans [address] mL/min/1.37w08107/05/2019 [facility] [address], [place] [address]DDRO 14 (METABOLIC PANEL)43417Cmsaxa9256-6633 mmol/L1 [facility] [address], [place] [address]HYUG 14 (METABOLIC PANEL)12352Svnuvokoa1393-24.8 mmol/L1 [facility] [address], [place] [address]JQCQ 14 (METABOLIC PANEL)13322Zctewkkh5385-3753 mmol/L1 [facility] [address], [place] [address]QZTS 14 (METABOLIC PANEL)91883Tlijh QR91895-833 mmol/L1 [facility] [address], [place] [address]CNLN 14 (METABOLIC PANEL)49[address]Xpuvt Mpm8817-830.8 mEq/L1 [facility] [address], [place] [address]FMKP 14 (METABOLIC PANEL)625[address]Wmhfcngdtm Serum Rddbdulebh24643-5684 mOsm/kg07/05/2019 [facility] [address], [place] [address]IJZZ 14 (METABOLIC PANEL)499[address]Xbuejur93278-06.0 g/dL07/05/2019 [facility] [address], [place] [address]AIQS 14 (METABOLIC PANEL)[address]Fllsb Zpmqcvv8665-58.5 g/dL07/05/2019 [facility] [address], [place] [address]OIBR 14 (METABOLIC PANEL)85229Welgrvqq0444-60.5 g/dL07/05/2019 [facility] [address] [facility] [place] [address]HXBW 14 (METABOLIC PANEL)537[address]Vtbtwzg/Globulin Zsgkr3829-34.1 07/05/2019 [facility] [address] [facility] [address]PEPS 14 (METABOLIC PANEL)330[address]ORX ELXG5818-459.00 U/L1 [facility] [address] [facility] [place] [address]ONOB 14 (METABOLIC PANEL)596[address]XGOT/TTY9825-249 U/L1 [facility] [address], [place] [address]CTBS 14 (METABOLIC PANEL)99[address]IMMK/FBM0302-417 U/L1 [facility] [address] [facility] [facility] [address]XFBV 14 (METABOLIC PANEL)04[address]Imeio Fujhnezvo1484-52.3 mg/dL 07/05/2019 [facility] [address], [place] [address]PUZU 14 (METABOLIC PANEL)80907Jqmpqse79303-40.5 mg/dL07/05/2019 [facility] [address], [place] [address]TCAP 14 (METABOLIC PANEL)340[address]Odtryjilu Obiemqu38596-08.7 mg/dL 07/05/2019 [facility] [address], [place] [address]JBBAIEZFRJ07563Pioulirfii8185-31.5 mg/dL07/05/2019 [facility] [address], [place] [address]L5X-MCOUQABVRKNMHFP6410-6Ugokn HGB W8U33600-04.6 %07/05/2019 [facility] [address], [place] [address]C4Q-CKCEOXEQVOZPIYU2793-0pEN41401-0312 mg/dL07/05/2019 [facility] [address] [facility] [place] [address]CBTB R-431108WC03502-05.82 pg/mL07/05/2019 [facility] [address], [place] [address]IQXO K-249378LL62891-29.17 ng/dL07/05/2019 [facility] [address] [place] [address] Procedures Procedure Codes Date Urinalysis, dip stick CPT-4: 85216 06/21/2019 Tobacco Assessment/Screening CPT-4: TCA Patient Health Questionnaire CPT-4: DPHQ AHA/REBECCA Classification Assessment CPT-4: DAHA 04/25/2019 Controlled Substance Report CPT-4: CTRSU 04/03 Urinalysis, dip stick CPT-4: 54313 03/28/2019 Urinalysis, dip stick CPT-4: 28999 03/28/2019 T6Z-Wtvtjozvlswjyze CPT-4: 91476 Unknown Gynecology Referral SNOMED CT: 023616589 CPT-4: Y80Ucboixg Vital Signs Date Vital 07/04/2019 Random Blood Sugar: 131/NaN Reason For Visit Reason For Visit Effective Dates Notes hypertension 07/04/2019 diabetes mellitus 07/04/2019 Encounters Encounter Performer Location Location Address Codes Magdi e HOME VISIT EST PATIENT Diagnosis: Chronic kidney disease, unspecified[ICD10: N18.9] Diagnosis: Essential (primary) hypertension[ICD10: I10] Diagnosis: Hypertensive heart disease with heart failure[ICD10: I11.0] Diagnosis: Hypothyroidism, unspecified[ICD10: E03.9] Diagnosis: Mixed incontinence[ICD10: N39.46] Diagnosis: Type 2 diabetes mellitus without complications[ICD10: E11.9][facility]ingsB[facility] Hospitalariane [address] [place] [address]MOQ- 4: [id number] Plan of Care Planned Activity Notes Codes Status Date Care Plan: RENAL FUNCTION PANEL LOINC : 73954-1 Vhasxga9007/05/2019Care Plan: JZZUiebhok50/03/2019Visit Plan:States having more bruising does not remembering injuring self, send for labs for cbc and chem 14 pt states allergic to bananas states makes her nausea, pt to avoid bananas Can not use windex, breaking out from cleaning supplies, hives have resolved Kidney ultra sound negative results reviewed withpt Saw eye Dr Hawkins in [facility] , looking for a dentist N18.9-585.9 Chronic kidney disease, unspecified avoid nephro toxic drugs, labs drawn for chem14 a1c, cbs I10-401.9 Essential (primary) hypertension I11.0-402.91 Hypertensive heart disease with heart failure bp as documented cont hctz E03.9-244.9Hypothyroidism, unspecified cont levothyroxine N39.46-788.33 Mixed incontinence send order for padsE11.9-250.00 Type 2 diabetes mellitus without complications cont to control with diet a1c sent 07/04/2019Patient Education: Patient Medication JobyemvAiacyuibj07/02/2019 Appointment: Sudha Hernadez WPtel: [address] [facility] b [id number]: Charlene Oropeza WPtel: [address] [facility] [id number]: Enedelia Delgado45Appointment: Charlene Oropeza WPtel: [address] [facility] [id number]: Hema Palafoxothy WPtel: [address] [facility] b [id number]: Javy Rasta WPtel: [address] [facility] b [id number]: Javy Rasta WPtel: [address] [facility] b [id number]: Hema Palafoxothy WPtel: [address] [facility] b [id number]: Pending Gynecology Referral InformationReferral ProcessedReferral: Pending Pulmonology Referral InformationReferralProcessed Referral: Pending Psychiatry Referral InformationReferralInitiatedReferral: Pending Respiratory Services Referral InformationReferralInitiatedReferral: Pending Ophthalmology Referral InformationReferralInitiatedReferral: [facility] WPtel: [address] [facility] [address] [id number] USWriter placed a call out to the patient to notify her that it has been recommended that she be seenby 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 Patient agreed to be seen, does not have a provider of choice and no transportationissues. Director Medical Safety faxed referral and clinical notes to [facility] in [place], [place] near the patient's home. Patient to [...] and prefers a provider in the [place] or [place] area. Director Medical Safety placed a call out to everyone listed in the area and the only location that was able to accept the patient's insurance was [address] [address] and spoke with Maylin. Maylin asked that the patient's referral, face sheet and visit notes be faxed to . Director Medical Safety faxed over requested documents. Patient appointment confirmation letter generated and mailed to her home address. Patient to call to schedule an appointment.ProcessedReferral: [facility] WPtel: [address] [facility] [address] [place], [place] [id number] USPatient notified that it has been advised that she be seen by Neurology. Patient agreed to be seen and prefers to be seen by a provider in the [place], [place] area. Patient denies any concerns with transportation, and prefers to schedule her own appointment. Director Medical Safety placed a call out to [facility] and spoke with Neeraj P: who confirmed that their office is able to acceptnew patients and the patient's insurance. After confirming the providers fax number, food writer faxed over the patient's referral, and most recent clinical notes to F: . Patient to call to schedule her appointment. Appointment confirmation letter mailed to the patient's home address. CCDA completed.ProcessedReferral: Pending Nephrology Referral InformationReferralProcessedReferral: Pending Podiatry Referral Information ReferralInitiatedReferral: Pending Podiatry Referral InformationReferral ProcessedReferral: Pending Podiatry Referral InformationReferralInitiated Instructions Comment Date . States having more bruisin g does not remembering injuring self, send for labs for cbc and chem 14 pt states allergic to bananas states makes her nausea, pt to avoid bananas Can not use windex, breaking out from cleaning supplies, hives have resolved Kidney ultra sound negative results reviewed with pt Saw eye Dr Hawkins in [facility] , looking for a dentist N18.9-585.9 Chronic kidney disease, unspecified avoid nephro toxic drugs, labs drawn for chem14 a1c, cbs I10-401.9 Essential (primary) hypertension I11.0-402.91 Hypertensive heart disease with heart failure bp as documented cont hctz E03.9-244.9 Hypothyroidism, unspecified cont levothyroxine N39.46-788.33 Mixed incontinence send order for pads E11.9-250.00 Type 2 diabetes mellitus without complications cont to control with diet a1c sent 07/04/2019 Medical Equipment No Medical Equipment data Advance Directives No Advance Directive data
--- OUTSIDE RECORDS SUMMARY | 2019-08-08 20:00 | XMS_ITS | CCD ---
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 Hrbp Name Role Phone Palomo KING, Anna Primary Care Provider Unav ailable Unavailable Chronic Care Management Unavaila ble Summary Purpose DataExchange Insurance Providers Payer name Policy type / Coverage type Covered republican ID Effective Begin Date Effective End Date [facility] [id number] Unknown Unknown Family history Mother Diagnosis Age [...] 05/31/2018 Education level Unknown Some High School 10th05/31/20187637NhwfkwmhihTcgxzavAladatcsvs44/29/2018Tobacco historySNOMED CT: 603568372Rbi never smoked or chewed ktsfnhr8605/31/2018Alcohol historySNOMED CT: 498688675Hafvj drinks tifyclu0905/31/2018Has the patient ever used illegal drugs? UnknownHas never used illegal drugs05/31/2018DNR Order/ Advanced Directive UnknownFull Code05/31/2018 Allergies, Adverse Reactions, Alerts Substance Reaction Codes Entered Date Inactivated Date Status *No known food allergies Cjvayxh7009/06/2018No Inactive DateActiveMethylprednisolonehivesRxNorm: 6902 09/06/2018No Inactive DateActive Problems Condition Codes Effective Dates Condition St atus Chronic kidney disease, unspecified ICD- 10: N18.9 ICD-9: 585.909ActiveEssential (primary) hypertensionICD-10: I10 ICD-9: 401.901ActiveHypertensive heart disease with heart failureICD-10: I11.0 ICD-9: 402.9107/ActiveHypothyroidism, unspecifiedICD-10: E03.9 ICD-9: 244.912/01/2018ActiveMixed incontinenceICD-10: N39.46 ICD-9: 788.3308ActiveType 2 diabetes mellitus without complicationsICD- 10: E11.9 ICD-9: 250.0001/10/2018ActiveHyperlipidemia, unspecifiedICD-10: E78.5 ICD-9: 272.408/ActiveObstructive sleep apnea (adult) (pediatric)ICD-10: G47.33 ICD-9: 327.2309/ActiveApnea, not elsewhere classifiedICD-10: R06.81 ICD-9: 786.0305ActiveEncounter for immunizationICD-10: Z23 ICD-9: V03.907/ActiveEncounter for screening, unspecifiedICD-10: Z13.9 ICD-9: V82.912ActiveUnspecified asthma, uncomplicatedICD-10: J45.909 ICD-9: 493.9011ActivePolyneuropathy, unspecifiedICD-10: G62.9 ICD-9: 356.908ActivePatient Not SeenICD-10: UXZ.01 ICD-9: XZ0.107ActiveEncounter for screening for malignant neoplasm of cervixICD-10: Z12.4 ICD-9: V76.207ActiveOther terminal carman (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ICD-10: Z79.899 ICD-9: V58.6907ActiveBody mass [...] Strip RxNorm: 1 Test Strips Miscellaneous QAM 08/09/202019 Inactive 100/container Ventolin HFA 90 mcg/actuation aerosol inhaler RxNorm: 845344 2 Puff(s) INH QID 08/09/202019 Inactive Please do not fill early. Please do not auto refill. This refill negates all other refills of this medication atorvastatin 40 mg tablet RxNorm: 983321 1 Tablet(s) Oral every day 07/04/20 19 2019 Inactive hydrochlorothiazide 12.5 mg tablet RxNorm: 247880 1 Tablet(s) PO QAM 06/26/20 19 2019 Inactive levmetamfetamine 50 mg nasal inhaler RxNorm: 1 Unit(s) NASAL Q3-4H Do not use more than every 3 hours or 8 times/24hours 06/26/20 19 2021 Inactive Please do not auto refill. This refill negates all other refills of this medication Singulair 10 mg tablet RxNorm: 553753 1 Tablet(s) PO daily 06/26/20 19 2019 Inactive This refill negates all other refills of this medication cetirizine 10 mg tablet RxNorm: 9768983 1 Tablet(s) PO daily 06/26/20 19 2019 Inactive This refill negates all other refills of this medication. Please do not auto refill levothyroxine 50 mcg tablet RxNorm: 314106 1 Tablet(s) PO daily 06/26/20 19 2019 Inactive This refill negates all other refills of this medication diclofenac sodium 75 mg tablet,delayed release RxNorm: 511061 1 Tablet(s) PO BID 06/26/20 19 2019 Inactive This refill negates all other refills of this medication ranitidine 150 mg tablet RxNorm: 769585 1 Tablet(s) PO BID 06/26/20 19 2018 Inactive This refill negates all other refills of this medication buspirone 7.5 mg tablet RxNorm: 592113 1 Tablet(s) PO BID 06/26/20 19 2020 Inactive This refill negates all other refills of this medication Calcium 600-D3 Plus (mag-zinc) 600 mg calcium-800 unit-50 mg tablet RxNorm: 1 Tablet(s) PO daily take an additonal tablet for itching. 06/26/20 19 2018 Inactive This refill negates all other refills of this medication albuterol sulfate 2.5 mg/3 mL (0.083 %) solution for nebulization RxNorm: 320732 1 Vial INH QID 06/26/20 19 2018 Inactive 60/box. This refill negates all other refills of this medication. Please do not fill early. Please do not auto refill. Ventolin HFA 90 mcg/actuation aerosol inhaler RxNorm: 820351 2 Puff(s) INH QID 06/26/20 19 2018 Inactive Please do not fill early. Please do not auto refill. This refill negates all other refills of this medication lisinopril 2.5 mg tablet RxNorm: 969055 1 Tablet(s) PO daily 06/21/20 19 2019 Inactive gabapentin 300 mg capsule RxNorm: 963549 1 Capsule(s) PO TID 06/21/20 19 2019 Inactive atorvastatin 20 mg tablet RxNorm: 664238 1 Tablet(s) PO QHS 06/07/20 19 2018 Inactive This refill negates all other refills of this medication TRUEplus Lancets 30 gauge RxNorm: 1 Lancets Miscellaneous QAM 05/29/20 19 2018 Inactive 100/box gabapentin 300 mg capsule RxNorm: 020083 1 Capsule(s) PO TID 05/03/20 19 2018 Inactive Flintstones Complete (iron) 18 mg iron chewable tablet RxNorm: 1 Tablet(s) PO daily 04/04/20 19 2021 Inactive This refill negates all other refills of this medication Alcohol Prep Pads RxNorm: 432333 1 Patch TOP QAM 02/01/202018 Inactive gabapentin 300 mg capsule RxNorm: 211277 1 Capsule(s) PO TID as needed 02/01/20 19 2018 Inactive True Metrix Glucose Test Strip RxNorm: 1 Test Strips Miscellaneous QA 02/01/20 19 2018 Inactive 100/container TRUEplus Lancets 30 gauge RxNorm: 1 Lancets Miscellaneous QAM 02/01/20 19 2018 Inactive 100/box lisinopril 2.5 mg tablet RxNorm: 335399 1 Tablet(s) PO daily 12/28/192018 Inactive ranitidine 150 mg tablet RxNorm: 550127 1 Tablet(s) PO BID 10/21/192018 Inactive This refill negates all other refills of this medication albuterol sulfate 2.5 mg/3 mL (0.083 %) solution for nebulization RxNorm: 540777 1 Vial INH QID 10/21/19 19 2018 [...] this medication gabapentin 300 mg capsule RxNorm: 775890 1 Capsule(s) PO TID as needed 10/21/19 19 2018 Inactive atorvastatin 20 mg tablet RxNorm: 499601 1 Tablet(s) PO QHS 10/21/192018 Inactive This refill negates all other refills of this medication trazodone 50 mg tablet RxNorm: 455191 1 Tablet(s) PO QHS 10/21/192018 Inactive This refill negates all other refills of this medication Ventolin HFA 90 mcg/actuation aerosol inhaler RxNorm: 527806 2 Puff(s) INH QID 10/21/192018 Inactive Please do not fill early. Please do not auto refill. This refill negates all other refills of this medication Calcium 600-D3 Plus 600 mg calcium-800 unit-50 mg tablet RxNorm: 1 Tablet(s) PO daily take an additonal tablet for itching. 10/21/192018 Inactive This refill negates all other refills of this medication Singulair 10 mg tablet RxNorm: 876638 1 Tablet(s) PO daily 10/21/192018 Inactive This refill negates all other refills of this medication buspirone 7.5 mg tablet RxNorm: 402760 1 Tablet(s) PO BID 10/21/192018 Inactive This refill negates all other refills of this medication diclofenac sodium 75 mg tablet,delayed release RxNorm: 957008 1 Tablet(s) PO BID 10/21/192018 Inactive This refill negates all other refills of this medication hydrochlorothiazide 12.5 mg tablet RxNorm: 895695 1 Tablet(s) PO QAM 10/21/192018 Inactive metoprolol succinate ER 50 mg tablet,extended release 24 hr RxNorm: 712908 1 Tablet(s) PO daily 10/21/19 19 2018 Inactive This refill negates all other refills of this medication levothyroxine 50 mcg tablet RxNorm: 013915 1 Tablet(s) PO daily 10/21/19 19 2018 Inactive This refill negates all other refills of this medication cetirizine 10 mg tablet RxNorm: 6231263 1 Tablet(s) PO daily 10/21/19 19 2018 Inactive This refill negates all other refills of this medication. Please do not auto refill Flintstones Complete (iron) 18 mg iron chewable tablet RxNorm: 1 Tablet(s) PO daily 10/21/19 19 2018 Inactive This refill negates all other refills of this medication buspirone 7.5 mg tablet RxNorm: 008407 1 Tablet(s) PO BID 10/12/19 19 2018 Inactive cetirizine 10 mg tablet RxNorm: 8965982 1 Tablet(s) PO daily 09/28/20 18 2018 Inactive Guaiasorb DM 10 mg-100 mg/5 mL oral liquid RxNorm: 777522 10 Milliliter(s) PO As needed every 4 hr 09/24/20 18 2018 Inactive Vicks Vaporub 4.7 %-1.2 %-2.6 % topical ointment RxNorm: 2548015 1 Application TOP TID 09/24/20 18 2018 Inactive levmetamfetamine 50 mg nasal inhaler RxNorm: 1 Unit(s) NASAL Q3-4H 09/24/20 18 2017 Inactive sertraline 50 mg tablet RxNorm: 977028 1 Tablet(s) PO daily 09/09/20 18 2018 Inactive Please note dose trazodone 50 mg tablet RxNorm: 645906 1 Tablet(s) PO QHS 09/06/20 18 2018 Inactive sertraline 50 mg tablet RxNorm: 397455 1 Tablet(s) PO daily 09/06/20 18 2017 Inactive amoxicillin 500 mg tablet RxNorm: 366489 1 Tablet(s) PO Q12H 08/31/20 18 2017 Inactive albuterol sulfate 2.5 mg/3 mL (0.083 %) solution for nebulization RxNorm: 796225 1 Vial INH QID 08/10/20 18 2018 Inactive 60/box. Please do not fill early. Please do not auto refill. Prozac 10 mg capsule RxNorm: 757419 1 Capsule(s) PO daily 08/09/20 18 2017 Inactive buspirone 7.5 mg tablet RxNorm: 303844 1 Tablet(s) PO BID 08/09/20 18 2018 Inactive gabapentin 300 mg capsule RxNorm: 810514 1 Capsule(s) PO TID as needed 08/01/20 18 2018 Inactive hydrochlorothiazide 12.5 mg tablet RxNorm: 653171 1 Tablet(s) PO QAM 08/01/20 18 2018 Inactive ranitidine 150 mg tablet RxNorm: 631801 1 Tablet(s) PO BID 08/01/20 18 2018 Inactive Macrobid 100 mg capsule RxNorm: 798844 1 Capsule(s) PO Q12H 06/21/20 18 2017 Inactive Singulair 10 mg tablet RxNorm: 161075 1 Tablet(s) PO daily 06/14/20 18 2018 Inactive Ventolin HFA 90 mcg/actuation aerosol inhaler RxNorm: 4081476 2 Puff(s) INH QID 06/14/20 18 2018 Inactive Singulair 10 mg tablet RxNorm: 348673 1 Tablet(s) PO daily 06/14/20 18 2017 Inactive buspirone 7.5 mg tablet RxNorm: 752782 1 Tablet(s) PO BID 06/14/20 18 2017 Inactive Prozac 10 mg capsule RxNorm: 018812 1 Capsule(s) PO daily 06/14/20 18 2017 Inactive Neilmed Pediatric Sinus Rinse Refill packet RxNorm: 1 Unit Dose NASAL PRN 05/31/20 18 2021 Inactive diclofenac sodium 75 mg tablet,delayed release RxNorm: 021196 1 Tablet(s) PO BID 05/31/20 18 2017 Inactive lisinopril 2.5 mg tablet RxNorm: 406328 1 Tablet(s) PO daily 05/31/20 18 2017 Inactive metoprolol succinate ER 50 mg tablet,extended release 24 hr RxNorm: 313167 1 Tablet(s) PO daily 05/31/20 18 2017 Inactive levothyroxine 50 mcg tablet RxNorm: 080498 1 Tablet(s) PO daily 05/31/20 18 2017 Inactive TRUEplus Lancets 30 gauge RxNorm: 1 Lancets Miscellaneous QAM 05/31/20 18 2017 Inactive 100/box Ventolin HFA 90 mcg/actuation aerosol inhaler RxNorm: 080622 2 Puff(s) INH QID 05/31/20 18 2017 Inactive Aleve 220 mg capsule RxNorm: 3778622 1 Capsule(s) PO BID 05/31/20 18 2018 Inactive ranitidine 150 mg tablet RxNorm: 223578 1 Tablet(s) PO BID 05/31/20 18 2017 Inactive gabapentin 300 mg capsule RxNorm: 045025 1 Capsule(s) PO TID as needed 05/31/20 18 2017 Inactive atorvastatin 20 mg tablet RxNorm: 726606 1 Tablet(s) PO QHS 05/31/20 18 2017 Inactive True Metrix Glucose Test Strip RxNorm: 1 Test Strips Miscellaneous QAM 05/31/20 18 2017 Inactive 50/container Calcium 600-D3 Plus 600 mg calcium-800 unit-50 mg tablet RxNorm: 1 Tablet(s) PO daily take an additonal tablet for itching. 05/31/20 18 2017 Inactive hydrochlorothiazide 12.5 mg tablet RxNorm: 512619 1 Tablet(s) PO QAM 05/31/20 18 2017 Inactive Flintstones Complete (iron) 18 mg iron chewable tablet RxNorm: 1 Tablet(s) PO daily 05/31/20 18 2017 Inactive True Metrix Glucose Meter RxNorm: miscellaneous 08/17/20 19 2018 Inactive sertraline 50 mg tablet RxNorm: 872437 1 Tablet(s) PO daily 11/28/19 20 2019 Inactive loperamide 2 mg tablet RxNorm: 103646 oral 09/29/20 19 2018 Inactive d-mannose oral powder RxNorm: PO 18 2021 Inactive Symbicort 160 mcg-4.5 mcg/actuation HFA aerosol inhaler RxNorm: 2516724 2 Puff(s) INH BID 08/17/20 19 2018 Inactive Medication Administered No Medication Administered data Procedures Procedure Codes Date Urinalysis, dip stick CPT-4: 43470 06/21/2019 Tobacco Assessment/Screening CPT-4: TCA Patient Health Questionnaire CPT-4: DPHQ AHA/REBECCA Classification Assessment CPT-4: DAHA 04/25/2019 Controlled Substance Report CPT-4: CTRSU 04/03 Urinalysis, dip stick CPT-4: 37622 03/28/2019 Urinalysis, dip stick CPT-4: 94099 03/28/2019 [id number] CPT-4: 08755 Unknown Gynecology Referral SNOMED CT: 812550269 CPT-4: K58Mondysk Reason For Visit No Reason For Visit data Plan of Care Planned Activity Notes Codes Status Date Referral: Pending Gynecology Referral Informatio n Referral ProcessedReferral: Pending Pulmonology Referral InformationReferralProcessed Referral: Pending Psychiatry Referral InformationReferralInitiatedReferral: Pending Respiratory Services Referral InformationReferralInitiatedReferral: Pending Ophthalmology Referral InformationReferralInitiatedReferral: [facility] WPtel: [address] [place] [address] [id number] USWriter placed a call out to the patient to notify her that it has been recommended that she be seenby 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 Patient agreed to be seen, does not have a provider of choice and no transportationissues. Beet End Supervisor faxed referral and clinical notes to [facility] in [place], [place] near the patient's home. Patient to [...] seen and prefers a provider in the [place] or [place] area. Beet End Supervisor placed a call out to everyone listed in the area and the only location that was able to accept the patient's insurance was [address] [id number] and spoke with Maylin. Maylin asked that the patient's referral, face sheet and visit notes be faxed to . Beet End Supervisor faxed over requested documents. Patient appointment confirmation letter generated and mailed to her home address. Patient to call to schedule an appointment.ProcessedReferral: [facility] WPtel: [address] [place], [place] [id number] USPatient notified that it has been advised that she be seen by Neurology. Patient agreed to be seen and prefers to be seen by a provider in the [place], [place] area. Patient denies any concerns with transportation, and prefers to schedule her own appointment. Beet End Supervisor placed a call out to [facility] and spoke with Neeraj Mcfarland: [...]
--- OUTSIDE RECORDS SUMMARY | 2019-08-16 20:00 | XMS_ITS | CCD ---
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 Legal Activity Adjudicator Name Role Phone Palomo KING, Anna Primary Care Provider Unav ailable Unavailable Chronic Care Management Unavaila ble Summary Purpose DataExchange Insurance Providers Payer name Policy type / Coverage type Covered democrat ID Effective Begin Date Effective End Date [facility] [id number] Unknown Unknown Family history Mother Diagnosis Age [...] 05/31/2018 Education level Unknown Some High School 10th05/31/20187223GoyiponpgpXvwbvriJcbsfpjbhq08/29/2018Tobacco historySNOMED CT: 299781716Npq never smoked or chewed tzhtwzy7605/31/2018Alcohol historySNOMED CT: 290830765Vmiil drinks wkfmoyy8505/31/2018Has the patient ever used illegal drugs? UnknownHas never used illegal drugs05/31/2018DNR Order/ Advanced Directive UnknownFull Code05/31/2018 Allergies, Adverse Reactions, Alerts Substance Reaction Codes Entered Date Inactivated Date Status *No known food allergies Rgujaqd7809/06/2018No Inactive DateActiveMethylprednisolonehivesRxNorm: 6902 09/06/2018No Inactive DateActive Problems [...] malignant neoplasm of cervixICD-10: Z12.4 ICD-9: V76.207ActiveOther buttermilk drier operator (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ICD-10: Z79.899 ICD-9: V58.6907ActiveBody [...] Status Fill Instructions Alcohol Prep Pads RxNorm: 259659 1 Patch TOP QAM 08/17/202019 Inactive albuterol sulfate 2.5 mg/3 mL (0.083 %) solution for nebulization RxNorm: 716947 1 Vial Inhalation every four hours as needed as needed for dyspnea 08/17/202019 Inactive 60/box. This refill negates all other refills of this medication. Please do not fill early. Please do not auto refill. Symbicort 160 mcg-4.5 mcg/actuation HFA aerosol inhaler RxNorm: 3460276 2 Puff(s) INH BID 08/17/20 19 No Stop Date Active True Metrix Glucose Test Strip RxNorm: 1 Test Strips Miscellaneous QAM 08/09/20 19 2019 Inactive 100/container Ventolin HFA 90 mcg/actuation aerosol inhaler RxNorm: 319467 2 Puff(s) INH QID 08/09/202019 Inactive Please do not fill early. Please do not auto refill. This refill negates all other refills of this medication atorvastatin 40 mg tablet RxNorm: 790921 1 Tablet(s) Oral every day 07/04/20 19 2019 Inactive hydrochlorothiazide 12.5 mg tablet RxNorm: 471925 1 Tablet(s) PO QAM 06/26/20 19 2019 Inactive levmetamfetamine 50 mg nasal inhaler RxNorm: 1 Unit(s) NASAL Q3-4H Do not use more than every 3 hours or 8 times/24hours 06/26/20 19 2021 Inactive Please do not auto refill. This refill negates all other refills of this medication Singulair 10 mg tablet RxNorm: 445223 1 Tablet(s) PO daily 06/26/20 19 2019 Inactive This refill negates all other refills of this medication cetirizine 10 mg tablet RxNorm: 8680553 1 Tablet(s) PO daily 06/26/20 19 2019 Inactive This refill negates all other refills of this medication. Please do not auto refill levothyroxine 50 mcg tablet RxNorm: 862448 1 Tablet(s) PO daily 06/26/20 19 2019 Inactive This refill negates all other refills of this medication diclofenac sodium 75 mg tablet,delayed release RxNorm: 601048 1 Tablet(s) PO BID 06/26/20 19 2019 Inactive This refill negates all other refills of this medication ranitidine 150 mg tablet RxNorm: 973232 1 Tablet(s) PO BID 06/26/20 19 2018 Inactive This refill negates all other refills of this medication buspirone 7.5 mg tablet RxNorm: 696705 1 Tablet(s) PO BID 06/26/20 19 2020 Inactive This refill negates all other refills of this medication Calcium 600-D3 Plus (mag-zinc) 600 mg calcium-800 unit-50 mg tablet RxNorm: 1 Tablet(s) PO daily take an additonal tablet for itching. 06/26/20 19 2018 Inactive This refill negates all other refills of this medication Ventolin HFA 90 mcg/actuation aerosol inhaler RxNorm: 849814 2 Puff(s) INH QID 06/26/20 19 2018 Inactive Please do not fill early. Please do not auto refill. This refill negates all other refills of this medication albuterol sulfate 2.5 mg/3 mL (0.083 %) solution for nebulization RxNorm: 433913 1 Vial INH QID 06/26/20 19 2018 Inactive 60/box. This refill negates all other refills of this medication. Please do not fill early. Please do not auto refill. lisinopril 2.5 mg tablet RxNorm: 547078 1 Tablet(s) PO daily 06/21/20 19 2019 Inactive gabapentin 300 mg capsule RxNorm: 331859 1 Capsule(s) PO TID 06/21/20 19 2019 Inactive atorvastatin 20 mg tablet RxNorm: 248705 1 Tablet(s) PO QHS 06/07/20 19 2018 Inactive This refill negates all other refills of this medication TRUEplus Lancets 30 gauge RxNorm: 1 Lancets Miscellaneous QAM 05/29/20 19 2018 Inactive 100/box gabapentin 300 mg capsule RxNorm: 893124 1 Capsule(s) PO TID 05/03/20 19 2018 Inactive Flintstones Complete (iron) 18 mg iron chewable tablet RxNorm: 1 Tablet(s) PO daily 04/04/20 19 2021 Inactive This refill negates all other refills of this medication gabapentin 300 mg capsule RxNorm: 389437 1 Capsule(s) PO TID as needed 02/01/20 19 2018 Inactive True Metrix Glucose Test Strip RxNorm: 1 Test Strips Miscellaneous QAM 02/01/20 19 2018 Inactive 100/container Alcohol Prep Pads RxNorm: 674797 1 Patch TOP QAM 02/01/20 19 2018 Inactive TRUEplus Lancets 30 gauge RxNorm: 1 Lancets Miscellaneous QAM 02/01/20 19 2018 Inactive 100/box lisinopril 2.5 mg tablet RxNorm: 370643 1 Tablet(s) PO daily 12/28/19 19 2018 Inactive ranitidine 150 mg tablet RxNorm: 965183 1 Tablet(s) PO BID 10/21/192018 Inactive This refill negates all other refills of this medication albuterol sulfate 2.5 mg/3 mL (0.083 %) solution for nebulization RxNorm: 948308 1 Vial INH QID 10/21/192018 Inactive 60/box. [...] this medication gabapentin 300 mg capsule RxNorm: 054080 1 Capsule(s) PO TID as needed 10/21/19 19 2018 Inactive atorvastatin 20 mg tablet RxNorm: 267587 1 Tablet(s) PO QHS 10/21/192018 Inactive This refill negates all other refills of this medication trazodone 50 mg tablet RxNorm: 281347 1 Tablet(s) PO QHS 10/21/19 19 2018 Inactive This refill negates all other refills of this medication Ventolin HFA 90 mcg/actuation aerosol inhaler RxNorm: 890229 2 Puff(s) INH QID 10/21/192018 Inactive Please do not fill early. Please do not auto refill. This refill negates all other refills of this medication Calcium 600-D3 Plus 600 mg calcium-800 unit-50 mg tablet RxNorm: 1 Tablet(s) PO daily take an additonal tablet for itching. 10/21/192018 Inactive This refill negates all other refills of this medication Singulair 10 mg tablet RxNorm: 568677 1 Tablet(s) PO daily 10/21/192018 Inactive This refill negates all other refills of this medication buspirone 7.5 mg tablet RxNorm: 329358 1 Tablet(s) PO BID 10/21/19 19 2018 Inactive This refill negates all other refills of this medication diclofenac sodium 75 mg tablet,delayed release RxNorm: 177698 1 Tablet(s) PO BID 10/21/19 19 2018 Inactive This refill negates all other refills of this medication hydrochlorothiazide 12.5 mg tablet RxNorm: 899647 1 Tablet(s) PO QAM 10/21/192018 Inactive metoprolol succinate ER 50 mg tablet,extended release 24 hr RxNorm: 648442 1 Tablet(s) PO daily 10/21/192018 Inactive This refill negates all other refills of this medication levothyroxine 50 mcg tablet RxNorm: 827732 1 Tablet(s) PO daily 10/21/19 19 2018 Inactive This refill negates all other refills of this medication cetirizine 10 mg tablet RxNorm: 9711644 1 Tablet(s) PO daily 10/21/192018 Inactive This refill negates all other refills of this medication. Please do not auto refill Flintstones Complete (iron) 18 mg iron chewable tablet RxNorm: 1 Tablet(s) PO daily 10/21/192018 Inactive This refill negates all other refills of this medication buspirone 7.5 mg tablet RxNorm: 082463 1 Tablet(s) PO BID 10/12/192018 Inactive cetirizine 10 mg tablet RxNorm: 1123015 1 Tablet(s) PO daily 09/28/202018 Inactive Guaiasorb DM 10 mg-100 mg/5 mL oral liquid RxNorm: 301597 10 Milliliter(s) PO As needed every 4 hr 09/24/202018 Inactive Vicks Vaporub 4.7 %-1.2 %-2.6 % topical ointment RxNorm: 7370125 1 Application TOP TID 09/24/20 18 2018 Inactive levmetamfetamine 50 mg nasal inhaler RxNorm: 1 Unit(s) NASAL Q3-4H 09/24/20 18 2017 Inactive sertraline 50 mg tablet RxNorm: 665625 1 Tablet(s) PO daily 09/09/20 18 2018 Inactive Please note dose trazodone 50 mg tablet RxNorm: 926997 1 Tablet(s) PO QHS 09/06/20 18 2018 Inactive sertraline 50 mg tablet RxNorm: 004093 1 Tablet(s) PO daily 09/06/20 18 2017 Inactive amoxicillin 500 mg tablet RxNorm: 646881 1 Tablet(s) PO Q12H 08/31/20 18 2017 Inactive albuterol sulfate 2.5 mg/3 mL (0.083 %) solution for nebulization RxNorm: 038793 1 Vial INH QID 08/10/20 18 2018 Inactive 60/box. Please do not fill early. Please do not auto refill. Prozac 10 mg capsule RxNorm: 161926 1 Capsule(s) PO daily 08/09/20 18 2017 Inactive buspirone 7.5 mg tablet RxNorm: 442195 1 Tablet(s) PO BID 08/09/20 18 2018 Inactive gabapentin 300 mg capsule RxNorm: 144083 1 Capsule(s) PO TID as needed 08/01/20 18 2018 Inactive hydrochlorothiazide 12.5 mg tablet RxNorm: 708468 1 Tablet(s) PO QAM 08/01/20 18 2018 Inactive ranitidine 150 mg tablet RxNorm: 894617 1 Tablet(s) PO BID 08/01/20 18 2018 Inactive Macrobid 100 mg capsule RxNorm: 888468 1 Capsule(s) PO Q12H 06/21/20 18 2017 Inactive Singulair 10 mg tablet RxNorm: 183243 1 Tablet(s) PO daily 06/14/20 18 2018 Inactive Ventolin HFA 90 mcg/actuation aerosol inhaler RxNorm: 6787926 2 Puff(s) INH QID 06/14/20 18 2018 Inactive Singulair 10 mg tablet RxNorm: 835401 1 Tablet(s) PO daily 06/14/20 18 2017 Inactive buspirone 7.5 mg tablet RxNorm: 999996 1 Tablet(s) PO BID 06/14/20 18 2017 Inactive Prozac 10 mg capsule RxNorm: 393551 1 Capsule(s) PO daily 06/14/20 18 2017 Inactive Neilmed Pediatric Sinus Rinse Refill packet RxNorm: 1 Unit Dose NASAL PRN 05/31/20 18 2021 Inactive diclofenac sodium 75 mg tablet,delayed release RxNorm: 026181 1 Tablet(s) PO BID 05/31/20 18 2017 Inactive lisinopril 2.5 mg tablet RxNorm: 709772 1 Tablet(s) PO daily 05/31/20 18 2017 Inactive metoprolol succinate ER 50 mg tablet,extended release 24 hr RxNorm: 313426 1 Tablet(s) PO daily 05/31/20 18 2017 Inactive levothyroxine 50 mcg tablet RxNorm: 891260 1 Tablet(s) PO daily 05/31/20 18 2017 Inactive TRUEplus Lancets 30 gauge RxNorm: 1 Lancets Miscellaneous QAM 05/31/20 18 2017 Inactive 100/box Ventolin HFA 90 mcg/actuation aerosol inhaler RxNorm: 368141 2 Puff(s) INH QID 05/31/20 18 2017 Inactive Aleve 220 mg capsule RxNorm: 1334633 1 Capsule(s) PO BID 05/31/20 18 2018 Inactive ranitidine 150 mg tablet RxNorm: 065392 1 Tablet(s) PO BID 05/31/20 18 2017 Inactive gabapentin 300 mg capsule RxNorm: 522103 1 Capsule(s) PO TID as needed 05/31/20 18 2017 Inactive atorvastatin 20 mg tablet RxNorm: 600221 1 Tablet(s) PO QHS 05/31/20 18 2017 Inactive True Metrix Glucose Test Strip RxNorm: 1 Test Strips Miscellaneous QAM 05/31/20 18 2017 Inactive 50/container Calcium 600-D3 Plus 600 mg calcium-800 unit-50 mg tablet RxNorm: 1 Tablet(s) PO daily take an additonal tablet for itching. 05/31/20 18 2017 Inactive hydrochlorothiazide 12.5 mg tablet RxNorm: 803614 1 Tablet(s) PO QAM 05/31/20 18 2017 Inactive Flintstones Complete (iron) 18 mg iron chewable tablet RxNorm: 1 Tablet(s) PO daily 05/31/20 18 2017 Inactive True Metrix Glucose Meter RxNorm: miscellaneous 08/17/20 19 2018 Inactive sertraline 50 mg tablet RxNorm: 106764 1 Tablet(s) PO daily 11/28/19 20 2019 Inactive loperamide 2 mg tablet RxNorm: 455523 oral 09/29/20 19 2018 Inactive d-mannose oral powder RxNorm: PO 18 2021 Inactive Symbicort 160 mcg-4.5 mcg/actuation HFA aerosol inhaler RxNorm: 9611637 2 Puff(s) INH BID 08/17/20 19 2018 Inactive Medication Administered No Medication Administered data Procedures Procedure Codes Date Urinalysis, dip stick CPT-4: 97561 06/21/2019 Tobacco Assessment/Screening CPT-4: TCA Patient Health Questionnaire CPT-4: DPHQ AHA/REBECCA Classification Assessment CPT-4: DAHA 04/25/2019 Controlled Substance Report CPT-4: CTRSU 04/03 Urinalysis, dip stick CPT-4: 24367 03/28/2019 Urinalysis, dip stick CPT-4: 03411 03/28/2019 [id number]-[id number] CPT-4: 65126 Unknown Gynecology Referral SNOMED CT: 904513676 CPT-4: U13Onexcsd Reason For Visit No Reason For Visit data Plan of Care Planned Activity Notes Codes Status Date Referral: Pending Gynecology Referral Informatio n Referral ProcessedReferral: Pending Pulmonology Referral InformationReferralProcessed Referral: Pending Psychiatry Referral InformationReferralInitiatedReferral: Pending Respiratory Services Referral InformationReferralInitiatedReferral: Pending Ophthalmology Referral InformationReferralInitiatedReferral: [facility] WPtel: [address] [id number] USWriter placed a call out to the patient to notify her that it has been recommended that she be seenby 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 Patient agreed to be seen, does not have a provider of choice and no transportationissues. Water Attendant faxed referral and clinical notes to [facility] in [place], [place] near the patient's home. Patient to [...] seen and prefers a provider in the [place] or [place] area. Water Attendant placed a call out to everyone listed in the area and the only location that was able to accept the patient's insurance was [address] [phone] and spoke with Maylin. Maylin asked that the patient's referral, face sheet and visit notes be faxed to . Water Attendant faxed over requested documents. Patient appointment confirmation letter generated and mailed to her home address. Patient to call to schedule an appointment.ProcessedReferral: [facility] WPtel: [address] [id number] USPatient notified that it has been advised that she be seen by Neurology. Patient agreed to be seen and prefers to be seen by a provider in the [place], [place] area. Patient denies any concerns with transportation, and prefers to schedule her own appointment. Water Attendant placed a call out to [facility] and spoke with Neeraj P: who confirmed that their office is able to acceptnew patients and the patient's insurance. After confirming the providers fax number, principal technical writer faxed over the patient's referral, [...]
--- OUTSIDE RECORDS SUMMARY | 2019-10-15 20:00 | XMS_ITS | CCD ---
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 Foil Spinner Name Role Phone Palomo KING, Anna Primary Care Provider Unav ailable Unavailable Chronic Care Management Unavaila ble Summary Purpose DataExchange Insurance Providers Payer name Policy type / Coverage type Covered libertarian ID Effective Begin Date Effective End Date [facility] [id number] Unknown Unknown Family history Mother Diagnosis Age [...] 05/31/2018 Education level Unknown Some High School 10th05/31/20182459GbtfamisirZrgrgzzKgtjpkczaq22/29/2018Tobacco historySNOMED CT: 916557835Qtk never smoked or chewed [id number]/31/2018Alcohol historySNOMED CT: 861622168Hceqe drinks hcxatpu6005/31/2018Has the patient ever used illegal drugs? UnknownHas never used illegal drugs05/31/2018DNR Order/ Advanced Directive UnknownFull Code05/31/2018 Allergies, Adverse Reactions, Alerts Substance Reaction Codes Entered Date Inactivated Date Status *No known food allergies Zplcxpn6209/06/2018No Inactive DateActiveMethylprednisolonehivesRxNorm: 6902 09/06/2018No Inactive DateActive Problems Condition Codes Effective Dates Condition St atus Diarrhea ICD-10: R19.7 ICD-9: 787.9112ActiveChronic kidney disease, unspecifiedICD-10: N18.9 ICD-9: 585.909ActiveHypertensive heart disease with heart failureICD-10: I11.0 ICD-9: 402.9107/ActiveMixed incontinenceICD-10: N39.46 ICD-9: 788.3308ActiveType 2 diabetes mellitus without complicationsICD- 10: E11.9 ICD-9: 250.0001/10/2018ActiveGERD (gastroesophageal reflux disease)ICD-10: K21.9 ICD-9: 530.8112ActiveAcute upper respiratory infection, unspecifiedICD- 10: J06.9 ICD-9: 465.912ActiveEssential (primary) hypertensionICD-10: I10 ICD-9: 401.901/10/2018ActiveHypothyroidism, unspecifiedICD-10: E03.9 ICD-9: 244.912ActiveHyperlipidemia, unspecifiedICD-10: E78.5 ICD-9: 272.408ActiveObstructive sleep apnea (adult) (pediatric)ICD-10: G47.33 ICD-9: 327.2309ActiveApnea, not elsewhere classifiedICD-10: R06.81 ICD-9: 786.0305ActiveEncounter for immunizationICD-10: Z23 ICD-9: V03.907/ActiveEncounter for screening, unspecifiedICD-10: Z13.9 ICD-9: V82.912ActiveUnspecified asthma, uncomplicatedICD-10: J45.909 ICD-9: 493.9011ActivePolyneuropathy, unspecifiedICD-10: G62.9 ICD-9: 356.908ActivePatient Not SeenICD-10: UXZ.01 ICD-9: XZ0.107ActiveEncounter for screening for malignant neoplasm of cervixICD-10: Z12.4 ICD-9: V76.207ActiveOther mcc (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ICD-10: Z79.899 ICD-9: V58.6907ActiveBody mass index (BMI) 50-59.9 , adultICD-10: Z68.43 ICD-9: V85.4308ActiveChest pain, unspecifiedICD-10: R07.9 ICD-9: 786.5002ActiveEncounter for preprocedural cardiovascular examinationICD-10: Z01.810 ICD-9: V72.8106ActiveDyspnea, unspecifiedICD-10: R06.00 ICD-9: 786.0905ActivePost-traumatic stress disorder, unspecifiedICD-10: F43.10 ICD-9: 309.8112/01/2018ActiveWheezingICD-10: R06.2 ICD-9: 786.0711ActiveAbnormal electrocardiogram [ECG] [EKG]ICD-10: R94.31 ICD-9: 794.31005/30/2018ActiveEdema, unspecifiedICD-10: R60.9 ICD-9: 782.310ActiveAdjustment disorder with mixed anxiety and depressed moodICD-10: F43.23 ICD-9: 309.2812ActiveHeadacheICD-10: R51 ICD-9: 784.001ActiveLong term (current) use of non-steroidal anti- inflammatories (NSAID)ICD-10: Z79.1 ICD-9: V58.64006/13/2018Active Medications Medication Codes Instructions Start Date Stop Date Status Fill Instructions Alcohol Prep Pads RxNorm: 954458 1 Patch TOP QAM 10/16/192020 Inactive loperamide 2 mg tablet RxNorm: 807381 1 Tablet(s) Oral as needed take one tablet after each loose stool not to exceed 8 tablets a day 09/29/202018 Inactive Calcium 600-D3 Plus (mag-zinc) 600 mg calcium-800 unit-50 mg tablet RxNorm: 1 Tablet(s) PO daily take an additonal tablet for itching. 09/22/20 19 2021 Inactive This refill negates all other refills of this medication TRUEplus Lancets 30 gauge RxNorm: 1 Lancets Miscellaneous QAM 09/22/20 19 2019 Inactive 100/box fenugreek seed extract 500 mg capsule RxNorm: 1 Capsule(s) Oral three times a day 09/19/20 19 2019 Inactive hydrochlorothiazide 25 mg tablet RxNorm: 907446 1 Tablet(s) Oral every day 09/19/20 19 2019 Inactive Sudafed 12 Hour 120 mg tablet,extended release RxNorm: 5848314 1 Tablet(s) Oral every 12 hours as needed 09/11/20 19 2018 Inactive omeprazole 20 mg capsule,delayed release RxNorm: 379874 1 Capsule(s) Oral every day 09/07/20 19 2019 Inactive Sudafed 12 Hour 120 mg tablet,extended release RxNorm: 6068940 1 Tablet(s) Oral every 12 hours as needed 09/04/20 19 2018 Inactive pantoprazole 40 mg tablet,delayed release RxNorm: 392576 1 Tablet(s) Oral every day 08/24/202018 Inactive discontinue any other H2Blkr. and PPI albuterol sulfate 2.5 mg/3 mL (0.083 %) solution for nebulization RxNorm: 976599 1 Vial Inhalation every four hours as needed as needed for dyspnea 08/17/20 19 2019 Inactive 60/box. This refill negates all other refills of this medication. Please do not fill early. Please do not auto refill. Symbicort 160 mcg-4.5 mcg/actuation HFA aerosol inhaler RxNorm: 5318006 2 Puff(s) INH BID 08/17/20 19 No Stop Date Active Alcohol Prep Pads RxNorm: 156460 1 Patch TOP QAM 08/17/20 19 2019 Inactive True Metrix Glucose Test Strip RxNorm: 1 Test Strips Miscellaneous QAM 08/09/20 19 2019 Inactive 100/container Ventolin HFA 90 mcg/actuation aerosol inhaler RxNorm: 529127 2 Puff(s) INH QID 08/09/20 19 2019 Inactive Please do not fill early. Please do not auto refill. This refill negates all other refills of this medication atorvastatin 40 mg tablet RxNorm: 779824 1 Tablet(s) Oral every day 07/04/20 19 2019 Inactive levmetamfetamine 50 mg nasal inhaler RxNorm: 1 Unit(s) NASAL Q3-4H Do not use more than every 3 hours or 8 times/24hours 06/26/20 19 2021 Inactive Please do not auto refill. This refill negates all other refills of this medication Singulair 10 mg tablet RxNorm: 825547 1 Tablet(s) PO daily 06/26/20 19 2019 Inactive This refill negates all other refills of this medication cetirizine 10 mg tablet RxNorm: 6896213 1 Tablet(s) PO daily 06/26/20 19 2019 Inactive This refill negates all other refills of this medication. Please do not auto refill levothyroxine 50 mcg tablet RxNorm: 495522 1 Tablet(s) PO daily 06/26/20 19 2019 Inactive This refill negates all other refills of this medication diclofenac sodium 75 mg tablet,delayed release RxNorm: 447713 1 Tablet(s) PO BID 06/26/20 19 2019 Inactive This refill negates all other refills of this medication buspirone 7.5 mg tablet RxNorm: 457834 1 Tablet(s) PO BID 06/26/20 19 2020 Inactive This refill negates all other refills of this medication hydrochlorothiazide 12.5 mg tablet RxNorm: 638936 1 Tablet(s) PO QAM 06/26/20 19 2019 Inactive Ventolin HFA 90 mcg/actuation aerosol inhaler RxNorm: 810074 2 Puff(s) INH QID 06/26/20 19 2018 Inactive Please do not fill early. Please do not auto refill. This refill negates all other refills of this medication ranitidine 150 mg tablet RxNorm: 316182 1 Tablet(s) PO BID 06/26/20 19 2018 Inactive This refill negates all other refills of this medication Calcium 600-D3 Plus (mag-zinc) 600 mg calcium-800 unit-50 mg tablet RxNorm: 1 Tablet(s) PO daily take an additonal tablet for itching. 09/24/2018 Inactive This refill negates all other refills of this medication albuterol sulfate 2.5 mg/3 mL (0.083 %) solution for nebulization RxNorm: 790817 1 Vial INH QID 06/26/20 19 2018 Inactive 60/box. This refill negates all other refills of this medication. Please do not fill early. Please do not auto refill. lisinopril 2.5 mg tablet RxNorm: 111342 1 Tablet(s) PO daily 06/21/20 19 2019 Inactive gabapentin 300 mg capsule RxNorm: 108378 1 Capsule(s) PO TID 06/21/20 19 2019 Inactive atorvastatin 20 mg tablet RxNorm: 917174 1 Tablet(s) PO QHS 06/07/20 19 2018 Inactive This refill negates all other refills of this medication TRUEplus Lancets 30 gauge RxNorm: 1 Lancets Miscellaneous QAM 05/29/20 19 2018 Inactive 100/box gabapentin 300 mg capsule RxNorm: 642785 1 Capsule(s) PO TID 05/03/20 19 2018 Inactive Flintstones Complete (iron) 18 mg iron chewable tablet RxNorm: 1 Tablet(s) PO daily 04/04/20 19 2021 Inactive This refill negates all other refills of this medication gabapentin 300 mg capsule RxNorm: 528091 1 Capsule(s) PO TID as needed 02/01/202018 Inactive True Metrix Glucose Test Strip RxNorm: 1 Test Strips Miscellaneous QA 02/01/20 19 2018 Inactive 100/container Alcohol Prep Pads RxNorm: 752953 1 Patch TOP QAM 02/01/20 19 2018 Inactive TRUEplus Lancets 30 gauge RxNorm: 1 Lancets Miscellaneous QAM 02/01/20 19 2018 Inactive 100/box lisinopril 2.5 mg tablet RxNorm: 098013 1 Tablet(s) PO daily 12/28/19 19 2018 Inactive ranitidine 150 mg tablet RxNorm: 587521 1 Tablet(s) PO BID 10/21/19 19 2018 Inactive This refill negates all other refills of this medication albuterol sulfate 2.5 mg/3 mL (0.083 %) solution for nebulization RxNorm: 448473 1 Vial INH QID 10/21/19 19 2018 [...] this medication gabapentin 300 mg capsule RxNorm: 930684 1 Capsule(s) PO TID as needed 10/21/19 19 2018 Inactive atorvastatin 20 mg tablet RxNorm: 373971 1 Tablet(s) PO QHS 10/21/192018 Inactive This refill negates all other refills of this medication trazodone 50 mg tablet RxNorm: 215090 1 Tablet(s) PO QHS 10/21/192018 Inactive This refill negates all other refills of this medication Ventolin HFA 90 mcg/actuation aerosol inhaler RxNorm: 852426 2 Puff(s) INH QID 10/21/192018 Inactive Please do not fill early. Please do not auto refill. This refill negates all other refills of this medication Calcium 600-D3 Plus 600 mg calcium-800 unit-50 mg tablet RxNorm: 1 Tablet(s) PO daily take an additonal tablet for itching. 10/21/192018 Inactive This refill negates all other refills of this medication Singulair 10 mg tablet RxNorm: 501577 1 Tablet(s) PO daily 10/21/19 19 2018 Inactive This refill negates all other refills of this medication buspirone 7.5 mg tablet RxNorm: 102540 1 Tablet(s) PO BID 10/21/192018 Inactive This refill negates all other refills of this medication diclofenac sodium 75 mg tablet,delayed release RxNorm: 364285 1 Tablet(s) PO BID 10/21/19 19 2018 Inactive This refill negates all other refills of this medication hydrochlorothiazide 12.5 mg tablet RxNorm: 889148 1 Tablet(s) PO QAM 10/21/19 19 2018 Inactive metoprolol succinate ER 50 mg tablet,extended release 24 hr RxNorm: 098238 1 Tablet(s) PO daily 10/21/19 19 2018 Inactive This refill negates all other refills of this medication levothyroxine 50 mcg tablet RxNorm: 796390 1 Tablet(s) PO daily 10/21/19 19 2018 Inactive This refill negates all other refills of this medication cetirizine 10 mg tablet RxNorm: 3599295 1 Tablet(s) PO daily 10/21/19 19 2018 Inactive This refill negates all other refills of this medication. Please do not auto refill Flintstones Complete (iron) 18 mg iron chewable tablet RxNorm: 1 Tablet(s) PO daily 10/21/19 19 2018 Inactive This refill negates all other refills of this medication buspirone 7.5 mg tablet RxNorm: 573512 1 Tablet(s) PO BID 10/12/19 19 2018 Inactive cetirizine 10 mg tablet RxNorm: 7221059 1 Tablet(s) PO daily 09/28/20 18 2018 Inactive Guaiasorb DM 10 mg-100 mg/5 mL oral liquid RxNorm: 508583 10 Milliliter(s) PO As needed every 4 hr 09/24/202018 Inactive Vicks Vaporub 4.7 %-1.2 %-2.6 % topical ointment RxNorm: 7415650 1 Application TOP TID 09/24/20 18 2018 Inactive levmetamfetamine 50 mg nasal inhaler RxNorm: 1 Unit(s) NASAL Q3-4H 09/24/20 18 2017 Inactive sertraline 50 mg tablet RxNorm: 364126 1 Tablet(s) PO daily 09/09/20 18 2018 Inactive Please note dose trazodone 50 mg tablet RxNorm: 239373 1 Tablet(s) PO QHS 09/06/20 18 2018 Inactive sertraline 50 mg tablet RxNorm: 485911 1 Tablet(s) PO daily 09/06/20 18 2017 Inactive amoxicillin 500 mg tablet RxNorm: 638549 1 Tablet(s) PO Q12H 08/31/20 18 2017 Inactive albuterol sulfate 2.5 mg/3 mL (0.083 %) solution for nebulization RxNorm: 265761 1 Vial INH QID 08/10/20 18 2018 Inactive 60/box. Please do not fill early. Please do not auto refill. Prozac 10 mg capsule RxNorm: 076784 1 Capsule(s) PO daily 08/09/20 18 2017 Inactive buspirone 7.5 mg tablet RxNorm: 777948 1 Tablet(s) PO BID 08/09/20 18 2018 Inactive gabapentin 300 mg capsule RxNorm: 141005 1 Capsule(s) PO TID as needed 08/01/20 18 2018 Inactive hydrochlorothiazide 12.5 mg tablet RxNorm: 875596 1 Tablet(s) PO QAM 08/01/20 18 2018 Inactive ranitidine 150 mg tablet RxNorm: 738094 1 Tablet(s) PO BID 08/01/20 18 2018 Inactive Macrobid 100 mg capsule RxNorm: 842223 1 Capsule(s) PO Q12H 06/21/20 18 2017 Inactive Singulair 10 mg tablet RxNorm: 149617 1 Tablet(s) PO daily 06/14/20 18 2018 Inactive Ventolin HFA 90 mcg/actuation aerosol inhaler RxNorm: 9527513 2 Puff(s) INH QID 06/14/20 18 2018 Inactive Singulair 10 mg tablet RxNorm: 786297 1 Tablet(s) PO daily 06/14/20 18 2017 Inactive buspirone 7.5 mg tablet RxNorm: 516644 1 Tablet(s) PO BID 06/14/20 18 2017 Inactive Prozac 10 mg capsule RxNorm: 380532 1 Capsule(s) PO daily 06/14/20 18 2017 Inactive Neilmed Pediatric Sinus Rinse Refill packet RxNorm: 1 Unit Dose NASAL PRN 05/31/20 18 2021 Inactive diclofenac sodium 75 mg tablet,delayed release RxNorm: 280479 1 Tablet(s) PO BID 05/31/20 18 2017 Inactive lisinopril 2.5 mg tablet RxNorm: 082944 1 Tablet(s) PO daily 05/31/20 18 2017 Inactive metoprolol succinate ER 50 mg tablet,extended release 24 hr RxNorm: 942345 1 Tablet(s) PO daily 05/31/20 18 2017 Inactive levothyroxine 50 mcg tablet RxNorm: 317638 1 Tablet(s) PO daily 05/31/20 18 2017 Inactive TRUEplus Lancets 30 gauge RxNorm: 1 Lancets Miscellaneous QAM 05/31/20 18 2017 Inactive 100/box Ventolin HFA 90 mcg/actuation aerosol inhaler RxNorm: 246827 2 Puff(s) INH QID 05/31/20 18 2017 Inactive Aleve 220 mg capsule RxNorm: 5075714 1 Capsule(s) PO BID 05/31/20 18 2018 Inactive ranitidine 150 mg tablet RxNorm: 001866 1 Tablet(s) PO BID 05/31/20 18 2017 Inactive gabapentin 300 mg capsule RxNorm: 622350 1 Capsule(s) PO TID as needed 05/31/20 18 2017 Inactive atorvastatin 20 mg tablet RxNorm: 343784 1 Tablet(s) PO QHS 05/31/20 18 2017 Inactive True Metrix Glucose Test Strip RxNorm: 1 Test Strips Miscellaneous QAM 05/31/20 18 2017 Inactive 50/container Calcium 600-D3 Plus 600 mg calcium-800 unit-50 mg tablet RxNorm: 1 Tablet(s) PO daily take an additonal tablet for itching. 05/31/20 18 2017 Inactive hydrochlorothiazide 12.5 mg tablet RxNorm: 928784 1 Tablet(s) PO QAM 05/31/20 18 2017 Inactive Flintstones Complete (iron) 18 mg iron chewable tablet RxNorm: 1 Tablet(s) PO daily 05/31/20 18 2017 Inactive sertraline 50 mg tablet RxNorm: 108904 1 Tablet(s) PO daily 11/28/19 20 2019 Inactive d-mannose oral powder RxNorm: PO 18 2021 Inactive True Metrix Glucose Meter RxNorm: miscellaneous 08/17/20 19 2018 Inactive loperamide 2 mg tablet RxNorm: 932001 oral 09/29/20 19 2018 Inactive Symbicort 160 mcg-4.5 mcg/actuation HFA aerosol inhaler RxNorm: 5773626 2 Puff(s) INH BID 08/17/20 19 2018 Inactive Medication Administered No Medication Administered data Procedures Procedure Codes Date Fall Risk Assessment SNOMED CT: 04822906 4 CPT-4: DFRA09/19/2019Functional AssessmentCPT-4: DFA111/20/2018Urinalysis, dip stickCPT-4: 021977406/21/2019Tobacco Assessment/ScreeningCPT-4: TCA05/24/2019 Patient Health QuestionnaireCPT-4: DPHQ05/24/2019AHA/REBECCA Classification AssessmentCPT-4: DAHA04/25/2019Controlled Substance ReportCPT-4: CTRSU04/25/2019 Urinalysis, dip stickCPT-4: 280795503/28/2019Urinalysis, dip stickCPT-4: 79846 03/28/20196648B9T-LxlffthnmpzpxnkHSP-5: 64851WbpoicmCcmygclqgq ReferralSNOMED CT: 174132317 CPT-4: A55Uzdcoam Reason For Visit No Reason For Visit data Plan of Care Planned Activity Notes Codes Status Date Referral: Pending Gynecology Referral Informatio n Referral ProcessedReferral: Pending Pulmonology Referral InformationReferralProcessed Referral: Pending Psychiatry Referral InformationReferralInitiatedReferral: Pending Respiratory Services Referral InformationReferralInitiatedReferral: Pending Ophthalmology Referral InformationReferralInitiatedReferral: [facility] WPtel: [address] [facility] [address] [place] USWriter placed a call out to the patient to notify her that it has been recommended that she be seenby 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 Patient agreed to be seen, does not have a provider of choice and no transportationissues. Commercial Real Estate Sales Manager faxed referral and clinical notes to [facility] in [place], [place] near the patient's home. Patient to [...] and prefers a provider in the [place] or [place] area. Commercial Real Estate Sales Manager placed a call out to everyone listed in the area and the only location that was able to accept the patient's insurance was [address] [address] and spoke with Maylin. Maylin asked that the patient's referral, face sheet and visit notes be faxed to . Commercial Real Estate Sales Manager faxed over requested documents. Patient appointment confirmation letter generated and mailed to her home address. Patient to call to schedule an appointment.ProcessedReferral: [facility] WPtel: [phone] [facility] [address] [place], [place] [id number] USPatient notified that it has been advised that she be seen by Neurology. Patient agreed to be seen and prefers to be seen by a provider in the [place], [place] area. Patient denies any concerns with transportation, and prefers to schedule her own appointment. Commercial Real Estate Sales Manager placed a call out to [facility] and spoke with Neeraj Mcfarland: who confirmed that their office is able to acceptnew patients and the patient's insurance. After confirming the providers fax number, newspaper writer faxed over the patient's referral, and [...]
--- OUTSIDE RECORDS SUMMARY | 2019-12-28 20:00 | XMS_ITS | CCD ---
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 Director Of Consumer Marketing Name Role Phone Palomo KING, Anna Primary Care Provider Unav ailable Unavailable Chronic Care Management Unavaila ble Summary Purpose DataExchange Insurance Providers Payer name Policy type / Coverage type Covered libertarian ID Effective Begin Date Effective End Date [facility] [id number] Unknown Unknown Family history Mother Diagnosis Age [...] 05/31/2018 Education level Unknown Some High School 10th05/31/20185384MseyobtdklKddyjyiNtjioumbwt05/29/2018Tobacco historySNOMED CT: 064611056Mgu never smoked or chewed vnolznk4005/31/2018Alcohol historySNOMED CT: 776671625Ahssw drinks lmtpzsj2605/31/2018Has the patient ever used illegal drugs? UnknownHas never used illegal drugs05/31/2018DNR Order/ Advanced Directive UnknownFull Code05/31/2018 Allergies, Adverse Reactions, Alerts Substance Reaction Codes Entered Date Inactivated Date Status *No known food allergies Xaxlgut9009/06/2018No Inactive DateActiveMethylprednisolonehivesRxNorm: 6902 09/06/2018No Inactive DateActive Problems Condition Codes Effective Dates Condition [facility] [place] [facility] ICD-10: H10.029 ICD-9: 372.0303ActiveFecal incontinenceICD-10: R15.9 ICD-9: 787.6003ActiveMixed incontinenceICD-10: N39.46 ICD-9: 788.3308ActiveDiarrheaICD-10: R19.7 ICD-9: 787.9112ActiveAdjustment disorder with mixed anxiety and depressed moodICD-10: F43.23 ICD-9: 309.28111/06/2017ActiveAdult BMI 50.0-59.9 kg/sq mICD-10: Z68.43 ICD-9: V85.4308ActiveHypertensive heart disease with heart failureICD- 10: I11.0 ICD-9: 402.9107/ActiveType 2 diabetes mellitus with peripheral neuropathy ICD-10: E11.42 ICD-9: 250.6002ActiveType 2 diabetes mellitus without complicationsICD- 10: E11.9 ICD-9: 250.0001ActiveSinusitisICD-10: J32.9 ICD-9: 473.902ActiveAsthmaICD-10: J45.909 ICD-9: 493.9011ActiveEssential (primary) hypertensionICD-10: I10 ICD-9: 401.901ActiveObstructive sleep apnea (adult) (pediatric)ICD-10: G47.33 ICD-9: 327.2309ActiveChronic kidney disease, unspecifiedICD-10: N18.9 ICD-9: 585.909ActiveGERD (gastroesophageal reflux disease)ICD-10: K21.9 ICD-9: 530.8112ActiveAcute upper respiratory infection, unspecifiedICD- 10: J06.9 ICD-9: 465.912ActiveHypothyroidism, unspecifiedICD-10: E03.9 ICD-9: 244.912ActiveHyperlipidemia, unspecifiedICD-10: E78.5 ICD-9: 272.408ActiveApnea, not elsewhere classifiedICD-10: R06.81 ICD-9: 786.0305ActiveEncounter for immunizationICD-10: Z23 ICD-9: V03.907ActiveEncounter for screening, unspecifiedICD-10: Z13.9 ICD-9: V82.912/01/2018ActivePolyneuropathy, unspecifiedICD-10: G62.9 ICD-9: 356.908ActivePatient Not SeenICD-10: UXZ.01 ICD-9: XZ0.107/ActiveEncounter for screening for malignant neoplasm of cervixICD-10: Z12.4 ICD-9: V76.207/ActiveOther mcc (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ICD-10: Z79.899 ICD-9: V58.6907/ActiveChest pain, unspecifiedICD-10: R07.9 ICD-9: 786.5002ActiveEncounter for preprocedural cardiovascular examinationICD-10: Z01.810 ICD-9: V72.8106ActiveDyspnea, unspecifiedICD-10: R06.00 ICD-9: 786.0905ActivePost-traumatic stress disorder, unspecifiedICD-10: F43.10 ICD-9: 309.8112ActiveWheezingICD-10: R06.2 ICD-9: 786.0711ActiveAbnormal electrocardiogram [ECG] [EKG]ICD-10: R94.31 ICD-9: 794.3108ActiveEdema, unspecifiedICD-10: R60.9 ICD-9: 782.310/06/2018ActiveHeadacheICD-10: R51 ICD-9: 784.001ActiveLong term (current) use of non-steroidal anti- inflammatories (NSAID)ICD-10: Z79.1 ICD-9: V58.6409Active Medications Medication Codes Instructions Start Date Stop Date Status Fill Instructions gentamicin 0.3 % eye drops RxNorm: 814674 1 Drop(s) ophthalmic (eye) four times a day 12/29/19 20 2019 Inactive gentamicin 0.3 % eye drops RxNorm: 791514 1 Drop(s) ophthalmic (eye) four times a day 12/29/19 20 2019 Inactive gentamicin 0.3 % eye drops RxNorm: 504474 1 Drop(s) ophthalmic (eye) four times a day 12/29/19 20 2019 Inactive hydrochlorothiazide 25 mg tablet RxNorm: 096111 1 Tablet(s) Oral every day 12/21/19 20 2019 Inactive Sudafed 12 Hour 120 mg tablet,extended release RxNorm: 5594973 TAKE (1) TABLET BY MOUTH EVERY 12 HOURS NEEDED 12/21/19 20 2019 Inactive loperamide 2 mg tablet RxNorm: 222444 1 Tablet(s) Oral as needed take one tablet after each loose stool, maximum of 8 tablets in 24 hours 12/11/19 20 2019 Inactive loperamide 2 mg tablet RxNorm: 560424 1 Tablet(s) Oral as needed take one tablet after each loose stool, maximum of 8 tablets in 24 hours 12/11/19 20 2019 Inactive atorvastatin 40 mg tablet RxNorm: 970431 1 Tablet(s) Oral every day 11/29/19 20 2020 Inactive quetiapine 100 mg tablet RxNorm: 000238 1 Tablet(s) Oral every night at bedtime 11/28/19 20 2019 Inactive sertraline 100 mg tablet RxNorm: 459173 1 Tablet(s) Oral 11/28/19 20 2019 Inactive omeprazole 20 mg capsule,delayed release RxNorm: 878343 1 Capsule(s) Oral every day 11/20/19 20 2019 Inactive amoxicillin 250 mg capsule RxNorm: 542489 1 Capsule(s) Oral three times a day 11/07/19 20 2019 Inactive multivitamin with iron-mineral tablet RxNorm: 1 Tablet(s) Oral every day 10/29/19 20 2021 Inactive cetirizine 10 mg tablet RxNorm: 8917181 1 Tablet(s) PO daily 10/20/19 20 2019 Inactive This refill negates all other refills of this medication. Please do not auto refill Singulair 10 mg tablet RxNorm: 841428 1 Tablet(s) PO daily 10/20/19 20 2019 Inactive This refill negates all other refills of this medication gabapentin 300 mg capsule RxNorm: 880843 1 Capsule(s) PO TID 10/20/19 20 2019 Inactive lisinopril 2.5 mg tablet RxNorm: 018619 1 Tablet(s) PO daily 10/20/19 20 2019 Inactive levothyroxine 50 mcg tablet RxNorm: 519522 1 Tablet(s) PO daily 10/20/19 20 2019 Inactive This refill negates all other refills of this medication fenugreek seed extract 500 mg capsule RxNorm: 1 Capsule(s) Oral three times a day 10/17/19 20 2021 Inactive hydrochlorothiazide 25 mg tablet RxNorm: 696808 1 Tablet(s) Oral every day 10/17/19 20 2019 Inactive Alcohol Prep Pads RxNorm: 690665 1 Patch TOP QAM 10/16/19 20 2020 Inactive loperamide 2 mg tablet RxNorm: 350900 1 Tablet(s) Oral as needed take one [...] 2019 Inactive hydrochlorothiazide 25 mg tablet RxNorm: 980622 1 Tablet(s) Oral every day 09/19/20 19 2019 Inactive Sudafed 12 Hour 120 mg tablet,extended release RxNorm: 5011384 1 Tablet(s) Oral every 12 hours as needed 09/11/20 19 2018 Inactive omeprazole 20 mg capsule,delayed release RxNorm: 161085 1 Capsule(s) Oral every day 09/07/20 19 2019 Inactive Sudafed 12 Hour 120 mg tablet,extended release RxNorm: 5858332 1 Tablet(s) Oral every 12 hours as needed 09/04/20 19 2018 Inactive pantoprazole 40 mg tablet,delayed release RxNorm: 523761 1 Tablet(s) Oral every day 08/24/20 19 2018 Inactive discontinue any other H2Blkr. and PPI albuterol sulfate 2.5 mg/3 mL (0.083 %) solution for nebulization RxNorm: 681701 1 Vial Inhalation every four hours as needed as needed for dyspnea 08/17/20 19 2019 Inactive 60/box. This refill negates all other refills of this medication. Please do not fill early. Please do not auto refill. Symbicort 160 mcg-4.5 mcg/actuation HFA aerosol inhaler RxNorm: 1061269 2 Puff(s) INH BID 08/17/20 No Stop Date Active Alcohol Prep Pads RxNorm: 708775 1 Patch TOP QAM 08/17/20 19 2019 Inactive True Metrix Glucose Test Strip RxNorm: 1 Test Strips Miscellaneous QAM 08/09/20 19 2019 Inactive 100/container Ventolin HFA 90 mcg/actuation aerosol inhaler RxNorm: 300587 2 Puff(s) INH QID 08/09/20 19 2019 Inactive Please do not fill early. Please do not auto refill. This refill negates all other refills of this medication atorvastatin 40 mg tablet RxNorm: 714164 1 Tablet(s) Oral every day 07/04/20 19 2019 Inactive levmetamfetamine 50 mg nasal inhaler RxNorm: 1 Unit(s) NASAL Q3-4H Do not use more than every 3 hours or 8 times/24hours 06/26/20 19 2021 Inactive Please do not auto refill. This refill negates all other refills of this medication diclofenac sodium 75 mg tablet,delayed release RxNorm: 066145 1 Tablet(s) PO BID 06/26/20 19 2019 Inactive This refill negates all other refills of this medication buspirone 7.5 mg tablet RxNorm: 930024 1 Tablet(s) PO BID 06/26/20 19 2020 Inactive This refill negates all other refills of this medication hydrochlorothiazide 12.5 mg tablet RxNorm: 290177 1 Tablet(s) PO QAM 06/26/20 19 2019 Inactive Ventolin HFA 90 mcg/actuation aerosol inhaler RxNorm: 777506 2 Puff(s) INH QID 06/26/20 19 2018 Inactive Please do not fill early. Please do not auto refill. This refill negates all other refills of this medication Singulair 10 mg tablet RxNorm: 440826 1 Tablet(s) PO daily 06/26/20 19 2019 Inactive This refill negates all other refills of this medication cetirizine 10 mg tablet RxNorm: 4251513 1 Tablet(s) PO daily 06/26/20 19 2019 Inactive This refill negates all other refills of this medication. Please do not auto refill levothyroxine 50 mcg tablet RxNorm: 774076 1 Tablet(s) PO daily 06/26/20 19 2019 Inactive This refill negates all other refills of this medication ranitidine 150 mg tablet RxNorm: 326889 1 Tablet(s) PO BID 06/26/20 19 2018 Inactive This refill negates all other refills of this medication Calcium 600-D3 Plus (mag-zinc) 600 mg calcium-800 unit-50 mg tablet RxNorm: 1 Tablet(s) PO daily take an additonal tablet for itching. 06/26/20 19 2018 Inactive This refill negates all other refills of this medication albuterol sulfate 2.5 mg/3 mL (0.083 %) solution for nebulization RxNorm: 580024 1 Vial INH QID 06/26/20 19 2018 Inactive 60/box. This refill negates all other refills of this medication. Please do not fill early. Please do not auto refill. lisinopril 2.5 mg tablet RxNorm: 167676 1 Tablet(s) PO daily 06/21/20 19 2019 Inactive gabapentin 300 mg capsule RxNorm: 308884 1 Capsule(s) PO TID 06/21/20 19 2019 Inactive atorvastatin 20 mg tablet RxNorm: 764499 1 Tablet(s) PO QHS 06/07/20 19 2018 Inactive This refill negates all other refills of this medication TRUEplus Lancets 30 gauge RxNorm: 1 Lancets Miscellaneous QAM 05/29/20 19 2018 Inactive 100/box gabapentin 300 mg capsule RxNorm: 912947 1 Capsule(s) PO TID 05/03/20 19 2018 Inactive Flintstones Complete (iron) 18 mg iron chewable tablet RxNorm: 1 Tablet(s) PO daily 04/04/202021 Inactive This refill negates all other refills of this medication gabapentin 300 mg capsule RxNorm: 358972 1 Capsule(s) PO TID as needed 02/01/20 19 2018 Inactive True Metrix Glucose Test Strip RxNorm: 1 Test Strips Miscellaneous QA 02/01/20 19 2018 Inactive 100/container Alcohol Prep Pads RxNorm: 523324 1 Patch TOP QAM 02/01/20 19 2018 Inactive TRUEplus Lancets 30 gauge RxNorm: 1 Lancets Miscellaneous QAM 02/01/20 19 2018 Inactive 100/box lisinopril 2.5 mg tablet RxNorm: 885340 1 Tablet(s) PO daily 12/28/19 19 2018 Inactive ranitidine 150 mg tablet RxNorm: 196142 1 Tablet(s) PO BID 10/21/192018 Inactive This refill negates all other refills of this medication albuterol sulfate 2.5 mg/3 mL (0.083 %) solution for nebulization RxNorm: 727164 1 Vial INH QID 10/21/192018 Inactive 60/box. [...] this medication gabapentin 300 mg capsule RxNorm: 948502 1 Capsule(s) PO TID as needed 10/21/19 19 2018 Inactive atorvastatin 20 mg tablet RxNorm: 455677 1 Tablet(s) PO QHS 10/21/19 19 2018 Inactive This refill negates all other refills of this medication trazodone 50 mg tablet RxNorm: 673158 1 Tablet(s) PO QHS 10/21/19 19 2018 Inactive This refill negates all other refills of this medication Ventolin HFA 90 mcg/actuation aerosol inhaler RxNorm: 854531 2 Puff(s) INH QID 10/21/192018 Inactive Please do not fill early. Please do not auto refill. This refill negates all other refills of this medication Calcium 600-D3 Plus 600 mg calcium-800 unit-50 mg tablet RxNorm: 1 Tablet(s) PO daily take an additonal tablet for itching. 10/21/19 19 2018 Inactive This refill negates all other refills of this medication Singulair 10 mg tablet RxNorm: 898266 1 Tablet(s) PO daily 10/21/192018 Inactive This refill negates all other refills of this medication buspirone 7.5 mg tablet RxNorm: 248761 1 Tablet(s) PO BID 10/21/192018 Inactive This refill negates all other refills of this medication diclofenac sodium 75 mg tablet,delayed release RxNorm: 312600 1 Tablet(s) PO BID 10/21/19 19 2018 Inactive This refill negates all other refills of this medication hydrochlorothiazide 12.5 mg tablet RxNorm: 539634 1 Tablet(s) PO QAM 10/21/19 19 2018 Inactive metoprolol succinate ER 50 mg tablet,extended release 24 hr RxNorm: 911896 1 Tablet(s) PO daily 10/21/192018 Inactive This refill negates all other refills of this medication levothyroxine 50 mcg tablet RxNorm: 068159 1 Tablet(s) PO daily 10/21/19 19 2018 Inactive This refill negates all other refills of this medication cetirizine 10 mg tablet RxNorm: 7388322 1 Tablet(s) PO daily 10/21/19 19 2018 Inactive This refill negates all other refills of this medication. Please do not auto refill Flintstones Complete (iron) 18 mg iron chewable tablet RxNorm: 1 Tablet(s) PO daily 10/21/19 19 2018 Inactive This refill negates all other refills of this medication buspirone 7.5 mg tablet RxNorm: 334813 1 Tablet(s) PO BID 10/12/19 19 2018 Inactive cetirizine 10 mg tablet RxNorm: 8916571 1 Tablet(s) PO daily 09/28/20 18 2018 Inactive Guaiasorb DM 10 mg-100 mg/5 mL oral liquid RxNorm: 057742 10 Milliliter(s) PO As needed every 4 hr 09/24/20 18 2018 Inactive Vicks Vaporub 4.7 %-1.2 %-2.6 % topical ointment RxNorm: 6353206 1 Application TOP TID 09/24/20 18 2018 Inactive levmetamfetamine 50 mg nasal inhaler RxNorm: 1 Unit(s) NASAL Q3-4H 09/24/20 18 2017 Inactive sertraline 50 mg tablet RxNorm: 594171 1 Tablet(s) PO daily 09/09/20 18 2018 Inactive Please note dose trazodone 50 mg tablet RxNorm: 639381 1 Tablet(s) PO QHS 09/06/20 18 2018 Inactive sertraline 50 mg tablet RxNorm: 725753 1 Tablet(s) PO daily 09/06/20 18 2017 Inactive amoxicillin 500 mg tablet RxNorm: 608782 1 Tablet(s) PO Q12H 08/31/20 18 2017 Inactive albuterol sulfate 2.5 mg/3 mL (0.083 %) solution for nebulization RxNorm: 841545 1 Vial INH QID 08/10/20 18 2018 Inactive 60/box. Please do not fill early. Please do not auto refill. Prozac 10 mg capsule RxNorm: 430887 1 Capsule(s) PO daily 08/09/20 18 2017 Inactive buspirone 7.5 mg tablet RxNorm: 994373 1 Tablet(s) PO BID 08/09/20 18 2018 Inactive gabapentin 300 mg capsule RxNorm: 493207 1 Capsule(s) PO TID as needed 08/01/20 18 2018 Inactive hydrochlorothiazide 12.5 mg tablet RxNorm: 894967 1 Tablet(s) PO QAM 08/01/20 18 2018 Inactive ranitidine 150 mg tablet RxNorm: 156328 1 Tablet(s) PO BID 08/01/20 18 2018 Inactive Macrobid 100 mg capsule RxNorm: 770112 1 Capsule(s) PO Q12H 06/21/20 18 2017 Inactive Singulair 10 mg tablet RxNorm: 671751 1 Tablet(s) PO daily 06/14/20 18 2018 Inactive Ventolin HFA 90 mcg/actuation aerosol inhaler RxNorm: 7111615 2 Puff(s) INH QID 06/14/20 18 2018 Inactive Singulair 10 mg tablet RxNorm: 242062 1 Tablet(s) PO daily 06/14/20 18 2017 Inactive buspirone 7.5 mg tablet RxNorm: 969869 1 Tablet(s) PO BID 06/14/20 18 2017 Inactive Prozac 10 mg capsule RxNorm: 758223 1 Capsule(s) PO daily 06/14/20 18 2017 Inactive Neilmed Pediatric Sinus Rinse Refill packet RxNorm: 1 Unit Dose NASAL PRN 05/31/20 18 2021 Inactive diclofenac sodium 75 mg tablet,delayed release RxNorm: 912890 1 Tablet(s) PO BID 05/31/20 18 2017 Inactive lisinopril 2.5 mg tablet RxNorm: 002735 1 Tablet(s) PO daily 05/31/20 18 2017 Inactive metoprolol succinate ER 50 mg tablet,extended release 24 hr RxNorm: 021360 1 Tablet(s) PO daily 05/31/20 18 2017 Inactive levothyroxine 50 mcg tablet RxNorm: 059491 1 Tablet(s) PO daily 05/31/20 18 2017 Inactive TRUEplus Lancets 30 gauge RxNorm: 1 Lancets Miscellaneous QAM 05/31/20 18 2017 Inactive 100/box Ventolin HFA 90 mcg/actuation aerosol inhaler RxNorm: 877157 2 Puff(s) INH QID 05/31/20 18 2017 Inactive Aleve 220 mg capsule RxNorm: 8782829 1 Capsule(s) PO BID 05/31/20 18 2018 Inactive ranitidine 150 mg tablet RxNorm: 115313 1 Tablet(s) PO BID 05/31/20 18 2017 Inactive gabapentin 300 mg capsule RxNorm: 523740 1 Capsule(s) PO TID as needed 05/31/20 18 2017 Inactive atorvastatin 20 mg tablet RxNorm: 907457 1 Tablet(s) PO QHS 05/31/20 18 2017 Inactive True Metrix Glucose Test Strip RxNorm: 1 Test Strips [facility] 05/31/20 18 2017 Inactive 50/container Calcium 600-D3 Plus 600 mg calcium-800 unit-50 mg tablet RxNorm: 1 Tablet(s) PO daily take an additonal tablet for itching. 05/31/20 18 2017 Inactive hydrochlorothiazide 12.5 mg tablet RxNorm: 596050 1 Tablet(s) PO QAM 05/31/20 18 2017 Inactive Flintstones Complete (iron) 18 mg iron chewable tablet RxNorm: 1 Tablet(s) PO daily 05/31/20 18 2017 Inactive d-mannose oral powder RxNorm: PO 18 2021 Inactive True Metrix Glucose Meter RxNorm: miscellaneous 08/17/20 19 2018 Inactive sertraline 50 mg tablet RxNorm: 484973 1 Tablet(s) PO daily 11/28/19 20 2019 Inactive loperamide 2 mg tablet RxNorm: 813393 oral 09/29/20 19 2018 Inactive Symbicort 160 mcg-4.5 mcg/actuation HFA aerosol inhaler RxNorm: 7237382 2 Puff(s) INH BID 08/17/20 19 2018 Inactive Medication Administered No Medication Administered data Procedures Procedure Codes Date [place] Assessment CPT-4: DSWA 11/04 Patient Health Questionnaire CPT-4: DPHQ [place] [facility] Assessment CPT-4: DSWA 10/03 Hypertension CPT-4: HTN 10/17/2019 Fall Risk Assessment SNOMED CT: 61998506 4 CPT-4: DFRA09/19/2019Functional AssessmentCPT-4: DFA111/20/2018Urinalysis, dip stickCPT-4: 5141392Tobacco Assessment/ScreeningCPT-4: TCA05/24/2019 Patient Health QuestionnaireCPT-4: DPHQ05/24/2019AHA/REBECCA Classification AssessmentCPT-4: DAHA04/25/2019Controlled Substance ReportCPT-4: CTRSU04/25/2019 Urinalysis, dip stickCPT-4: 6170755Urinalysis, dip stickCPT-4: 02484 03/28/20198297L6O-ZfwtuncqnvswejxHWI-8: 01183XbdgiswD1K-ToffgqflnuckpgqMHQ-8: [address]: 776902648 CPT-4: I81Bdexzdh Reason For Visit No Reason For Visit data Plan of Care Planned Activity Notes Codes Status Date Referral: Pending Gynecology Referral Informatio n Referral ProcessedReferral: Pending Pulmonology Referral InformationReferralProcessed Referral: Pending Psychiatry Referral InformationReferralInitiatedReferral: Pending Respiratory Services Referral InformationReferralInitiatedReferral: Pending Ophthalmology Referral InformationReferralInitiatedReferral: [facility] WPtel: [address] [place] [address] USWriter placed a call out to the patient to notify her that it has been recommended that she be seenby 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 Patient agreed to be seen, does not have a provider of choice and no transportationissues. Divorce Mediator faxed referral and clinical notes to [facility] in [place], [place] near the patient's home. Patient to [...] seen and prefers a provider in the [place] or [place] area. Divorce Mediator placed a call out to everyone listed in the area and the only location that was able to accept the patient's insurance was [address] [phone] and spoke with Maylin. Maylin asked that the patient's referral, face sheet and visit notes be faxed to . Divorce Mediator faxed over requested documents. Patient appointment confirmation letter generated and mailed to her home address. Patient to call to schedule an appointment.ProcessedReferral: [facility] WPtel: [address] [place] [address] [place], [place] [id number] USPatient notified that it has been advised that she be seen by Neurology. Patient agreed to be seen and prefers to be seen by a provider in the [place], [place] area. Patient denies any concerns with transportation, and prefers to schedule her own appointment. Divorce Mediator placed a call out to [facility] and spoke with [...]
--- OUTSIDE RECORDS SUMMARY | 2019-12-28 20:00 | XMS_ITS | CCD ---
Author Name Krysta BOWMAN, Dr Mon Address [address] [place] [address] Phone Organization [facility] Phone Care Team Providers Care Extended Insurance Clerk Name Role Phone Palomo PIPE BOWLS PAINT TRIMMER, Anna Primary Care Provider Unav ailable Unavailable Chronic Care Management Unavaila ble Summary Purpose DataExchange Insurance Providers Payer name Policy type / Coverage type Covered republican ID Effective Begin Date Effective End Date [facility] [id number] Unknown Unknown Family history Mother Diagnosis Age [...] 05/31/2018 Education level Unknown Some High School 10th05/31/20186395GhssepqyanSxetndwYycpludksg42/29/2018Tobacco historySNOMED CT: 215318610Cbs never smoked or chewed xuqwaba0505/31/2018Alcohol historySNOMED CT: 887340286Pmerl drinks ksixtxu1505/31/2018Has the patient ever used illegal drugs? UnknownHas never used illegal drugs05/31/2018DNR Order/ Advanced Directive UnknownFull Code05/31/2018 Allergies, Adverse Reactions, Alerts Substance Reaction Codes Entered Date Inactivated Date Status *No known food allergies Wttntgv3309/06/2018No Inactive DateActiveMethylprednisolonehivesRxNorm: 6902 09/06/2018No Inactive DateActive Problems Condition Codes Effective Dates Condition St [facility] [place] [facility] ICD-10: H10.029 ICD-9: 372.0303ActiveFecal incontinenceICD-10: R15.9 ICD-9: 787.6003ActiveMixed incontinenceICD-10: N39.46 ICD-9: 788.3308ActiveDiarrheaICD-10: R19.7 ICD-9: 787.9112ActiveAdjustment disorder with mixed anxiety and depressed moodICD-10: F43.23 ICD-9: 309.2812ActiveAdult BMI 50.0-59.9 kg/sq mICD-10: Z68.43 ICD-9: V85.4308ActiveHypertensive heart disease with heart failureICD- 10: I11.0 ICD-9: 402.9107ActiveType 2 diabetes mellitus with peripheral neuropathy ICD-10: E11.42 ICD-9: 250.6002ActiveType 2 diabetes mellitus without complicationsICD- 10: E11.9 ICD-9: 250.0001ActiveSinusitisICD-10: J32.9 ICD-9: 473.902ActiveAsthmaICD-10: J45.909 ICD-9: 493.9011ActiveEssential (primary) hypertensionICD-10: I10 ICD-9: 401.901ActiveObstructive sleep apnea (adult) (pediatric)ICD-10: G47.33 ICD-9: 327.2309/ActiveChronic kidney disease, unspecifiedICD-10: N18.9 ICD-9: 585.909ActiveGERD (gastroesophageal reflux disease)ICD-10: K21.9 ICD-9: 530.8112ActiveAcute upper respiratory infection, unspecifiedICD- 10: J06.9 ICD-9: 465.912ActiveHypothyroidism, unspecifiedICD-10: E03.9 ICD-9: 244.912ActiveHyperlipidemia, unspecifiedICD-10: E78.5 ICD-9: 272.408ActiveApnea, not elsewhere classifiedICD-10: R06.81 ICD-9: 786.0305ActiveEncounter for immunizationICD-10: Z23 ICD-9: V03.907/ActiveEncounter for screening, unspecifiedICD-10: Z13.9 ICD-9: V82.912/01/2018ActivePolyneuropathy, unspecifiedICD-10: G62.9 ICD-9: 356.908/ActivePatient Not SeenICD-10: UXZ.01 ICD-9: XZ0.107/ActiveEncounter for screening for malignant neoplasm of cervixICD-10: Z12.4 ICD-9: V76.207/ActiveOther oil heaterman (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ICD-10: Z79.899 ICD-9: V58.6907ActiveChest pain, unspecifiedICD-10: R07.9 ICD-9: 786.5002ActiveEncounter for preprocedural [...] Instructions gentamicin 0.3 % eye drops RxNorm: 788629 1 Drop(s) ophthalmic (eye) four times a day 12/29/19 20 2019 Inactive gentamicin 0.3 % eye drops RxNorm: 209081 1 Drop(s) ophthalmic (eye) four times a day 12/29/19 20 2019 Inactive gentamicin 0.3 % eye drops RxNorm: 628857 1 Drop(s) ophthalmic (eye) four times a day 12/29/19 20 2019 Inactive hydrochlorothiazide 25 mg tablet RxNorm: 345544 1 Tablet(s) Oral every day 12/21/19 20 2019 Inactive Sudafed 12 Hour 120 mg tablet,extended release RxNorm: 0173588 TAKE (1) TABLET BY MOUTH EVERY 12 HOURS NEEDED 12/21/19 20 2019 Inactive loperamide 2 mg tablet RxNorm: 511283 1 Tablet(s) Oral as needed take one tablet after each loose stool, maximum of 8 tablets in 24 hours 12/11/19 20 2019 Inactive loperamide 2 mg tablet RxNorm: 435948 1 Tablet(s) Oral as needed take one tablet after each loose stool, maximum of 8 tablets in 24 hours 12/11/19 20 2019 Inactive atorvastatin 40 mg tablet RxNorm: 192541 1 Tablet(s) Oral every day 11/29/19 20 2020 Inactive quetiapine 100 mg tablet RxNorm: 773872 1 Tablet(s) Oral every night at bedtime 11/28/19 20 2019 Inactive sertraline 100 mg tablet RxNorm: 062789 1 Tablet(s) Oral 11/28/19 20 2019 Inactive omeprazole 20 mg capsule,delayed release RxNorm: 959235 1 Capsule(s) Oral every day 11/20/19 20 2019 Inactive amoxicillin 250 mg capsule RxNorm: 725401 1 Capsule(s) Oral three times a day 11/07/19 20 2019 Inactive multivitamin with iron-mineral tablet RxNorm: 1 Tablet(s) Oral every day 10/29/19 20 2021 Inactive cetirizine 10 mg tablet RxNorm: 6418698 1 Tablet(s) PO daily 10/20/19 20 2019 Inactive This refill negates all other refills of this medication. Please do not auto refill Singulair 10 mg tablet RxNorm: 716163 1 Tablet(s) PO daily 10/20/19 20 2019 Inactive This refill negates all other refills of this medication gabapentin 300 mg capsule RxNorm: 249912 1 Capsule(s) PO TID 10/20/19 20 2019 Inactive lisinopril 2.5 mg tablet RxNorm: 713622 1 Tablet(s) PO daily 10/20/19 20 2019 Inactive levothyroxine 50 mcg tablet RxNorm: 573608 1 Tablet(s) PO daily 10/20/19 20 2019 Inactive This refill negates all other refills of this medication fenugreek seed extract 500 mg capsule RxNorm: 1 Capsule(s) Oral three times a day 10/17/19 20 2021 Inactive hydrochlorothiazide 25 mg tablet RxNorm: 468145 1 Tablet(s) Oral every day 10/17/192019 Inactive Alcohol Prep Pads RxNorm: 532367 1 Patch TOP QAM 10/16/19 20 2020 Inactive loperamide 2 mg tablet RxNorm: 015891 1 Tablet(s) Oral as needed take one [...] 2019 Inactive hydrochlorothiazide 25 mg tablet RxNorm: 260146 1 Tablet(s) Oral every day 09/19/202019 Inactive Sudafed 12 Hour 120 mg tablet,extended release RxNorm: 5102414 1 Tablet(s) Oral every 12 hours as needed 09/11/20 19 2018 Inactive omeprazole 20 mg capsule,delayed release RxNorm: 629755 1 Capsule(s) Oral every day 09/07/20 19 2019 Inactive Sudafed 12 Hour 120 mg tablet,extended release RxNorm: 5655177 1 Tablet(s) Oral every 12 hours as needed 09/04/20 19 2018 Inactive pantoprazole 40 mg tablet,delayed release RxNorm: 356439 1 Tablet(s) Oral every day 08/24/20 19 2018 Inactive discontinue any other H2Blkr. and PPI albuterol sulfate 2.5 mg/3 mL (0.083 %) solution for nebulization RxNorm: 184183 1 Vial Inhalation every four hours as needed as needed for dyspnea 08/17/20 19 2019 Inactive 60/box. This refill negates all other refills of this medication. Please do not fill early. Please do not auto refill. Symbicort 160 mcg-4.5 mcg/actuation HFA aerosol inhaler RxNorm: 4602991 2 Puff(s) INH BID 08/17/20 19 No Stop Date Active Alcohol Prep Pads RxNorm: 756253 1 Patch TOP QAM 08/17/20 19 2019 Inactive True Metrix Glucose Test Strip RxNorm: 1 Test Strips Miscellaneous QAM 08/09/20 19 2019 Inactive 100/container Ventolin HFA 90 mcg/actuation aerosol inhaler RxNorm: 495103 2 Puff(s) INH QID 08/09/20 19 2019 Inactive Please do not fill early. Please do not auto refill. This refill negates all other refills of this medication atorvastatin 40 mg tablet RxNorm: 081031 1 Tablet(s) Oral every day 07/04/20 19 2019 Inactive levmetamfetamine 50 mg nasal inhaler RxNorm: 1 Unit(s) NASAL Q3-4H Do not use more than every 3 hours or 8 times/24hours 06/26/20 19 2021 Inactive Please do not auto refill. This refill negates all other refills of this medication diclofenac sodium 75 mg tablet,delayed release RxNorm: 672323 1 Tablet(s) PO BID 06/26/20 19 2019 Inactive This refill negates all other refills of this medication buspirone 7.5 mg tablet RxNorm: 832550 1 Tablet(s) PO BID 06/26/20 19 2020 Inactive This refill negates all other refills of this medication hydrochlorothiazide 12.5 mg tablet RxNorm: 888695 1 Tablet(s) PO QAM 06/26/20 19 2019 Inactive Ventolin HFA 90 mcg/actuation aerosol inhaler RxNorm: 179457 2 Puff(s) INH QID 06/26/20 19 2018 Inactive Please do not fill early. Please do not auto refill. This refill negates all other refills of this medication Singulair 10 mg tablet RxNorm: 935232 1 Tablet(s) PO daily 06/26/20 19 2019 Inactive This refill negates all other refills of this medication cetirizine 10 mg tablet RxNorm: 6881084 1 Tablet(s) PO daily 06/26/20 19 2019 Inactive This refill negates all other refills of this medication. Please do not auto refill levothyroxine 50 mcg tablet RxNorm: 240988 1 Tablet(s) PO daily 06/26/20 19 2019 Inactive This refill negates all other refills of this medication ranitidine 150 mg tablet RxNorm: 544086 1 Tablet(s) PO BID 06/26/20 19 2018 Inactive This refill negates all other refills of this medication Calcium 600-D3 Plus (mag-zinc) 600 mg calcium-800 unit-50 mg tablet RxNorm: 1 Tablet(s) PO daily take an additonal tablet for itching. 06/26/20 19 2018 Inactive This refill negates all other refills of this medication albuterol sulfate 2.5 mg/3 mL (0.083 %) solution for nebulization RxNorm: 531497 1 Vial INH QID 06/26/20 19 2018 Inactive 60/box. This refill negates all other refills of this medication. Please do not fill early. Please do not auto refill. lisinopril 2.5 mg tablet RxNorm: 990766 1 Tablet(s) PO daily 06/21/20 19 2019 Inactive gabapentin 300 mg capsule RxNorm: 072359 1 Capsule(s) PO TID 06/21/20 19 2019 Inactive atorvastatin 20 mg tablet RxNorm: 915847 1 Tablet(s) PO QHS 06/07/20 19 2018 Inactive This refill negates all other refills of this medication TRUEplus Lancets 30 gauge RxNorm: 1 Lancets Miscellaneous QAM 05/29/20 19 2018 Inactive 100/box gabapentin 300 mg capsule RxNorm: 693799 1 Capsule(s) PO TID 05/03/20 19 2018 Inactive Flintstones Complete (iron) 18 mg iron chewable tablet RxNorm: 1 Tablet(s) PO daily 04/04/20 19 2021 Inactive This refill negates all other refills of this medication gabapentin 300 mg capsule RxNorm: 551476 1 Capsule(s) PO TID as needed 02/01/20 19 2018 Inactive True Metrix Glucose Test Strip RxNorm: 1 Test Strips Miscellaneous QA 02/01/20 19 2018 Inactive 100/container Alcohol Prep Pads RxNorm: 548438 1 Patch TOP QA 02/01/20 19 2018 Inactive TRUEplus Lancets 30 gauge RxNorm: 1 Lancets Miscellaneous QA 02/01/20 19 2018 Inactive 100/box lisinopril 2.5 mg tablet RxNorm: 969302 1 Tablet(s) PO daily 12/28/19 19 2018 Inactive ranitidine 150 mg tablet RxNorm: 239481 1 Tablet(s) PO BID 10/21/192018 Inactive This refill negates all other refills of this medication albuterol sulfate 2.5 mg/3 mL (0.083 %) solution for nebulization RxNorm: 727082 1 Vial INH QID 10/21/192018 Inactive 60/box. [...] this medication gabapentin 300 mg capsule RxNorm: 129465 1 Capsule(s) PO TID as needed 10/21/192018 Inactive atorvastatin 20 mg tablet RxNorm: 090995 1 Tablet(s) PO QHS 10/21/192018 Inactive This refill negates all other refills of this medication trazodone 50 mg tablet RxNorm: 481581 1 Tablet(s) PO QHS 10/21/192018 Inactive This refill negates all other refills of this medication Ventolin HFA 90 mcg/actuation aerosol inhaler RxNorm: 003595 2 Puff(s) INH QID 10/21/192018 Inactive Please do not fill early. Please do not auto refill. This refill negates all other refills of this medication Calcium 600-D3 Plus 600 mg calcium-800 unit-50 mg tablet RxNorm: 1 Tablet(s) PO daily take an additonal tablet for itching. 10/21/192018 Inactive This refill negates all other refills of this medication Singulair 10 mg tablet RxNorm: 905888 1 Tablet(s) PO daily 10/21/192018 Inactive This refill negates all other refills of this medication buspirone 7.5 mg tablet RxNorm: 300336 1 Tablet(s) PO BID 10/21/192018 Inactive This refill negates all other refills of this medication diclofenac sodium 75 mg tablet,delayed release RxNorm: 619884 1 Tablet(s) PO BID 10/21/192018 Inactive This refill negates all other refills of this medication hydrochlorothiazide 12.5 mg tablet RxNorm: 493579 1 Tablet(s) PO QAM 10/21/192018 Inactive metoprolol succinate ER 50 mg tablet,extended release 24 hr RxNorm: 283478 1 Tablet(s) PO daily 10/21/19 19 2018 Inactive This refill negates all other refills of this medication levothyroxine 50 mcg tablet RxNorm: 713898 1 Tablet(s) PO daily 10/21/19 19 2018 Inactive This refill negates all other refills of this medication cetirizine 10 mg tablet RxNorm: 3330164 1 Tablet(s) PO daily 10/21/192018 Inactive This refill negates all other refills of this medication. Please do not auto refill Flintstones Complete (iron) 18 mg iron chewable tablet RxNorm: 1 Tablet(s) PO daily 10/21/192018 Inactive This refill negates all other refills of this medication buspirone 7.5 mg tablet RxNorm: 181699 1 Tablet(s) PO BID 10/12/192018 Inactive cetirizine 10 mg tablet RxNorm: 1478093 1 Tablet(s) PO daily 09/28/20 18 2018 Inactive Guaiasorb DM 10 mg-100 mg/5 mL oral liquid RxNorm: 142834 10 Milliliter(s) PO As needed every 4 hr 09/24/202018 Inactive Vicks Vaporub 4.7 %-1.2 %-2.6 % topical ointment RxNorm: 2807386 1 Application TOP TID 09/24/20 18 2018 Inactive levmetamfetamine 50 mg nasal inhaler RxNorm: 1 Unit(s) NASAL Q3-4H 09/24/20 18 2017 Inactive sertraline 50 mg tablet RxNorm: 881691 1 Tablet(s) PO daily 09/09/20 18 2018 Inactive Please note dose trazodone 50 mg tablet RxNorm: 905271 1 Tablet(s) PO QHS 09/06/20 18 2018 Inactive sertraline 50 mg tablet RxNorm: 643414 1 Tablet(s) PO daily 09/06/20 18 2017 Inactive amoxicillin 500 mg tablet RxNorm: 567614 1 Tablet(s) PO Q12H 11/29/20 18 2017 Inactive albuterol sulfate 2.5 mg/3 mL (0.083 %) solution for nebulization RxNorm: 240861 1 Vial INH QID 08/10/20 18 2018 Inactive 60/box. Please do not fill early. Please do not auto refill. Prozac 10 mg capsule RxNorm: 682142 1 Capsule(s) PO daily 08/09/20 18 2017 Inactive buspirone 7.5 mg tablet RxNorm: 928305 1 Tablet(s) PO BID 08/09/20 18 2018 Inactive gabapentin 300 mg capsule RxNorm: 133152 1 Capsule(s) PO TID as needed 08/01/20 18 2018 Inactive hydrochlorothiazide 12.5 mg tablet RxNorm: 892314 1 Tablet(s) PO QAM 08/01/20 18 2018 Inactive ranitidine 150 mg tablet RxNorm: 858650 1 Tablet(s) PO BID 08/01/20 18 2018 Inactive Macrobid 100 mg capsule RxNorm: 918128 1 Capsule(s) PO Q12H 06/21/20 18 2017 Inactive Singulair 10 mg tablet RxNorm: 789168 1 Tablet(s) PO daily 06/14/20 18 2018 Inactive Ventolin HFA 90 mcg/actuation aerosol inhaler RxNorm: 9668426 2 Puff(s) INH QID 06/14/20 18 2018 Inactive Singulair 10 mg tablet RxNorm: 314007 1 Tablet(s) PO daily 06/14/20 18 2017 Inactive buspirone 7.5 mg tablet RxNorm: 919488 1 Tablet(s) PO BID 06/14/20 18 2017 Inactive Prozac 10 mg capsule RxNorm: 220251 1 Capsule(s) PO daily 06/14/20 18 2017 Inactive Neilmed Pediatric Sinus Rinse Refill packet RxNorm: 1 Unit Dose NASAL PRN 05/31/20 18 2021 Inactive diclofenac sodium 75 mg tablet,delayed release RxNorm: 286067 1 Tablet(s) PO BID 05/31/20 18 2017 Inactive lisinopril 2.5 mg tablet RxNorm: 410261 1 Tablet(s) PO daily 05/31/20 18 2017 Inactive metoprolol succinate ER 50 mg tablet,extended release 24 hr RxNorm: 883540 1 Tablet(s) PO daily 05/31/20 18 2017 Inactive levothyroxine 50 mcg tablet RxNorm: 611294 1 Tablet(s) PO daily 05/31/20 18 2017 Inactive TRUEplus Lancets 30 gauge RxNorm: 1 Lancets Miscellaneous QAM 05/31/20 18 2017 Inactive 100/box Ventolin HFA 90 mcg/actuation aerosol inhaler RxNorm: 100886 2 Puff(s) INH QID 05/31/20 18 2017 Inactive Aleve 220 mg capsule RxNorm: 0520645 1 Capsule(s) PO BID 05/31/20 18 2018 Inactive ranitidine 150 mg tablet RxNorm: 145218 1 Tablet(s) PO BID 05/31/20 18 2017 Inactive gabapentin 300 mg capsule RxNorm: 381585 1 Capsule(s) PO TID as needed 05/31/20 18 2017 Inactive atorvastatin 20 mg tablet RxNorm: 509617 1 Tablet(s) PO QHS 05/31/20 18 2017 Inactive True Metrix Glucose Test Strip RxNorm: 1 Test Strips Miscellaneous QAM 05/31/20 18 2017 Inactive 50/container Calcium 600-D3 Plus 600 mg calcium-800 unit-50 mg tablet RxNorm: 1 Tablet(s) PO daily take an additonal tablet for itching. 05/31/20 18 2017 Inactive hydrochlorothiazide 12.5 mg tablet RxNorm: 917892 1 Tablet(s) PO QAM 05/31/20 18 2017 Inactive Flintstones Complete (iron) 18 mg iron chewable tablet RxNorm: 1 Tablet(s) PO daily 05/31/20 18 2017 Inactive d-mannose oral powder RxNorm: PO 18 2021 Inactive True Metrix Glucose Meter RxNorm: miscellaneous 08/17/20 19 2018 Inactive sertraline 50 mg tablet RxNorm: 072847 1 Tablet(s) PO daily 11/28/19 20 2019 Inactive loperamide 2 mg tablet RxNorm: 718010 oral 09/29/20 19 2018 Inactive Symbicort 160 mcg-4.5 mcg/actuation HFA aerosol inhaler RxNorm: 9711211 2 Puff(s) INH BID 08/17/202018 Inactive Medication Administered No Medication Administered data Procedures Procedure Codes Date [place] Assessment CPT-4: DSWA 11/04 Patient Health Questionnaire CPT-4: DPHQ [place] Assessment CPT-4: DSWA 10/03 Hypertension CPT-4: HTN 10/17/2019 Fall Risk Assessment SNOMED CT: 04643777 4 CPT-4: DFRA09/19/2019Functional AssessmentCPT-4: DFA111/20/2018Urinalysis, dip stickCPT-4: 4962247Tobacco Assessment/ScreeningCPT-4: TCA05/24/2019 Patient Health QuestionnaireCPT-4: DPHQ05/24/2019AHA/REBECCA Classification AssessmentCPT-4: DAHA04/25/2019Controlled Substance ReportCPT-4: CTRSU04/25/2019 Urinalysis, dip stickCPT-4: 455781003/28/2019Urinalysis, dip stickCPT-4: 37041 03/28/20193565C5L-RqdzesfaqazgcljTLA-2: 72131NdpymnuT0K-MvsasidsnlrgpwjQBB-1: 22891 UnknownGynecology [facility]: 529526680 CPT-4: J61Xxnmlpm Reason For Visit No Reason For Visit data Plan of Care Planned Activity Notes Codes Status Date Patient Education: Patient Medication Summary Tjdebraau66/28/2020Appointment: Anna Culver WPtel: [id number] [place], [place] [id number]: Anna Culver WPtel: [address] [place] [address] [place], [place] [id number]: Anna Culver WPtel: [address] [place] [address] [place], [place] [id number]: Maricarmen, Sudha WPtel: [address] [facility] [address] [id number]: Maricarmen, Sudha WPtel: [address] [facility] [address] [id number]: Charlene Oropeza WPtel: [address] [facility] [address] [id number]: Arthur DelgadooE45Appointment: Charlene Oropeza WPtel: [address] [facility] [address] [id number]: Haupricht, Rasta WPtel: [address] [facility] [address] [id number]: Haupricht, Rasta WPtel: [address] [facility] [address] [id number]: Haupricht, Rasta WPtel: [address] [facility] [address] [id number]: Haupricht, Rasta WPtel: [address] [facility] [address] [id number]: Pending Gynecology Referral InformationReferral ProcessedReferral: Pending Pulmonology Referral InformationReferralProcessed Referral: Pending Psychiatry Referral InformationReferralInitiatedReferral: Pending Respiratory Services Referral InformationReferralInitiatedReferral: Pending Ophthalmology Referral InformationReferralInitiatedReferral: [facility] WPtel: [address] [place] USWriter placed a call out to the patient to notify her that it has been recommended that she be seenby 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 Patient agreed to be seen, does not have a provider of choice and no transportationissues. Tube Inspector faxed referral and clinical notes to [facility] in [place], [place] near the patient's home. Patient to [...] seen and prefers a provider in the [place] or [place] area. Tube Inspector placed a call out to everyone listed in the area and the only location that was able to accept the patient's insurance was [address] [address] and spoke with Maylin. Maylin asked that the patient's referral, face sheet and visit notes be faxed to . Tube Inspector faxed over requested documents. Patient appointment confirmation letter generated and mailed to her home address. Patient to call to schedule an appointment.ProcessedReferral: [facility] W[facility]: [address] [facility] [address] [id number] USPatient notified that it has been advised that she be seen by Neurology. Patient agreed to be seen and prefers to be seen by a provider in the [place], [place] area. Patient denies any concerns with transportation, and prefers to schedule her own appointment. Tube Inspector placed a call out to [facility] and spoke with Neeraj Mcfarland: who confirmed that their office is able to acceptnew patients and the patient's insurance. After confirming the providers fax number, technical document writer faxed over the patient's referral, and [...]
--- OUTSIDE RECORDS SUMMARY | 2020-10-13 20:00 | XMS_ITS | CCD ---
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 Software Engineer Web Applications Name Role Phone Palomo KING, Anna Primary Care Provider Unav ailable Unavailable Chronic Care Management Unavaila ble Summary Purpose DataExchange Insurance Providers Payer name Policy type / Coverage type Covered republican ID Effective Begin Date Effective End Date [facility] [id number] Unknown Unknown Family history Mother Diagnosis Age [...] 05/31/2018 Education level Unknown Some High School 10th05/31/20189543AwzlbfeiehYchaxfnQqtxfzittw97/29/2018Tobacco historySNOMED CT: 757524046Vrt never smoked or chewed ljwjajd3805/31/2018Alcohol historySNOMED CT: 255913703Ywkoj drinks bjjlnci9005/31/2018Has the patient ever used illegal drugs? UnknownHas never used illegal drugs05/31/2018DNR Order/ Advanced Directive UnknownFull Code05/31/2018 Allergies, Adverse Reactions, Alerts Substance Reaction Codes Entered Date Inactivated Date Status *No known food allergies Hufounl2909/06/2018No Inactive DateActiveMethylprednisolonehivesRxNorm: 6902 09/06/2018No Inactive DateActive Problems Condition Codes Effective Dates Condition St atus GERD (gastroesophageal reflux disease) I CD-10: K21.9 ICD-9: 530.8112ActiveUrinary tract infectionICD-10: N39.0 ICD-9: 599.012ActiveAbnormal urine findingICD-10: R82.90 ICD-9: 791.912/ActiveAdjustment disorder with mixed anxiety and depressed moodICD-10: F43.23 ICD-9: 309.2812ActiveHypertensive heart disease with heart failureICD- 10: I11.0 ICD-9: 402.9107ActiveType 2 diabetes mellitus with peripheral neuropathy ICD-10: E11.42 ICD-9: 250.6002ActivePolyneuropathy, unspecifiedICD-10: G62.9 ICD-9: 356.908ActiveRight wrist painICD-10: M25.531 ICD-9: 719.4308ActiveEssential (primary) hypertensionICD-10: I10 ICD-9: 401.9010/03/2018ActiveEncounter for screening, unspecifiedICD-10: Z13.9 ICD-9: V82.9111/06/2017Active(Z12.4-V76.2) Encounter for screening for malignant neoplasm of cervixICD-10: Z12.4 ICD-9: V76.207ActiveChronic kidney disease, unspecifiedICD-10: N18.9 ICD-9: 585.909ActiveEncounter for immunizationICD-10: Z23 ICD-9: V04.8109ActiveHyperlipidemia, unspecifiedICD-10: E78.5 ICD-9: 272.408ActiveHypothyroidism, unspecifiedICD-10: E03.9 ICD-9: 244.912Active(Z12.11-V76.51) Encounter for screening for malignant neoplasm of colonICD-10: Z12.11 ICD-9: V76.5107Active(Z12.31-V76.12) Encounter for screening mammogram for malignant neoplasm of breastICD-10: Z12.31 ICD-9: V76.1207ActiveAdult BMI 50.0-59.9 kg/sq mICD-10: Z68.43 ICD-9: V85.4308ActiveAbrasion of toeICD-10: S90.416A ICD-9: 917.005/ActiveObstructive sleep apnea (adult) (pediatric)ICD-10: G47.33 ICD-9: 327.2309/ActiveEncounter for screening for tobacco useICD-10: Z01.89 ICD-9: V72.8503/ActivePink eyeICD-10: H10.029 ICD-9: 372.0303/ActiveSyncope and collapseICD-10: R55 ICD-9: 780.203ActiveFecal incontinenceICD-10: R15.9 ICD-9: 787.6003ActiveMixed incontinenceICD-10: N39.46 ICD-9: 788.3308ActiveDiarrheaICD-10: R19.7 ICD-9: 787.9112ActiveType 2 diabetes mellitus without complicationsICD- 10: E11.9 ICD-9: 250.0001ActiveSinusitisICD-10: J32.9 ICD-9: 473.902ActiveAsthmaICD-10: J45.909 ICD-9: 493.9011ActiveAcute upper respiratory infection, unspecifiedICD- 10: J06.9 ICD-9: 465.912ActiveApnea, not elsewhere classifiedICD-10: R06.81 ICD-9: 786.0305ActiveEncounter for immunizationICD-10: Z23 ICD-9: V03.907/ActivePatient Not SeenICD-10: UXZ.01 ICD-9: XZ0.107/ActiveOther long-term (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ICD-10: Z79.899 ICD-9: V58.6907/ActiveChest pain, unspecifiedICD-10: R07.9 ICD-9: 786.5002ActiveEncounter for preprocedural cardiovascular examinationICD-10: Z01.810 ICD-9: V72.8106/ActiveDyspnea, unspecifiedICD-10: R06.00 ICD-9: 786.0902/08/2019ActivePost-traumatic stress disorder, unspecifiedICD-10: F43.10 ICD-9: 309.8112ActiveWheezingICD-10: R06.2 ICD-9: 786.0708/08/2018ActiveAbnormal electrocardiogram [ECG] [EKG]ICD-10: R94.31 ICD-9: 794.31005/30/2018ActiveEdema, unspecifiedICD-10: R60.9 ICD-9: 782.310ActiveHeadacheICD-10: R51 ICD-9: 784.001ActiveLong term (current) use of non-steroidal anti- inflammatories (NSAID)ICD-10: Z79.1 ICD-9: V58.6409Active Medications Medication Codes Instructions Start Date Stop Date Status Fill Instructions Alcohol Prep Pads RxNorm: 974470 USE EACH MORNING 10/14/19 21 2020 Inactive omeprazole 20 mg capsule,delayed release RxNorm: 847628 1 Capsule(s) Oral two times a day 10/13/19 21 2021 Inactive omeprazole 20 mg capsule,delayed release RxNorm: 725910 TAKE 1 CAPSULE BY MOUTH EVERY DAY 10/08/19 21 2021 Inactive Macrobid 100 mg capsule RxNorm: 043497 1 Capsule(s) Oral every 12 hours with food 10/01/20 20 2020 Inactive omeprazole 20 mg capsule,delayed release RxNorm: 974423 1 Capsule(s) Oral two times a day 09/24/20 20 2021 Inactive metformin 1,000 mg tablet RxNorm: 738222 1 Tablet(s) Oral two times a day 08/19/20 20 2020 Inactive start on September 11, 2020 metformin 500 mg tablet RxNorm: 407598 1 Tablet(s) Oral two times a day take with 500mg to equal 1000mg 08/19/20 20 2019 Inactive gabapentin 300 mg capsule RxNorm: 239889 TAKE 1 CAPSULE BY MOUTH THREE TIMES DAILY 07/11/20 20 2020 Inactive cetirizine 10 mg tablet RxNorm: 1232755 TAKE (1) TABLET BY MOUTH DAILY 07/11/20 20 2020 Inactive metformin 500 mg tablet RxNorm: 783267 1 Tablet(s) Oral two times a day 07/08/20 20 2019 Inactive loperamide 2 mg tablet RxNorm: 405859 1 Tablet(s) Oral as needed take one tablet after each loose stool, maximum of 8 tablets in 24 hours 06/24/20 20 2021 Inactive Sudafed 12 Hour 120 mg tablet,extended release RxNorm: 9918707 TAKE 1 TABLET BY MOUTH EVERY 12 HOURS NEEDED 06/11/20 20 2019 Inactive hydrochlorothiazide 25 mg tablet RxNorm: 590407 TAKE (1) TABLET BY MOUTH EVERY DAY 06/11/20 20 2019 Inactive omeprazole 20 mg capsule,delayed release RxNorm: 668015 TAKE 1 CAPSULE BY MOUTH EVERY DAY 05/14/20 20 2020 Inactive metformin 500 mg tablet RxNorm: 428461 1 Tablet(s) Oral every day 05/12/20 20 2019 Inactive True Metrix Glucose Test Strip RxNorm: 1 Test Strips Miscellaneous two times a day as needed 04/17/20 No Stop Date Active metformin 500 mg tablet RxNorm: 309429 1 Tablet(s) Oral every day 04/17/20 20 2019 Inactive diclofenac sodium 75 mg tablet,delayed release RxNorm: 030371 1 Tablet(s) PO BID 04/14/20 20 2021 Inactive This refill negates all other refills of this medication Sudafed 12 Hour 120 mg tablet,extended release RxNorm: 8183173 TAKE 1 TABLET BY MOUTH EVERY 12 HOURS NEEDED 03/14/20 20 2019 Inactive True Metrix Glucose Test Strip RxNorm: 1 Test Strips Miscellaneous every morning 03/13/20 20 2019 Inactive 100/container True Metrix Glucose Test Strip RxNorm: 1 Test Strips Miscellaneous QAM 02/22/20 20 2019 Inactive 100/container loperamide 2 mg tablet RxNorm: 302001 1 Tablet(s) Oral as needed take one tablet after each loose stool, maximum of 8 tablets in 24 hours 02/22/20 20 2019 Inactive levothyroxine 50 mcg tablet RxNorm: 076838 1 Tablet(s) PO daily 01/17/20 20 2020 Inactive cetirizine 10 mg tablet RxNorm: 3133114 1 Tablet(s) PO daily 01/17/20 20 2019 Inactive loperamide 2 mg tablet RxNorm: 005078 1 Tablet(s) Oral as needed take one tablet after each loose stool, maximum of 8 tablets in 24 hours 01/17/20 20 2019 Inactive quetiapine 100 mg tablet RxNorm: 849157 1 Tablet(s) Oral every night at bedtime 01/17/20 20 2019 Inactive gabapentin 300 mg capsule RxNorm: 574272 1 Capsule(s) PO TID 01/17/20 20 2019 Inactive lisinopril 2.5 mg tablet RxNorm: 889354 1 Tablet(s) PO daily 01/15/20 20 2020 Inactive Singulair 10 mg tablet RxNorm: 436055 1 Tablet(s) PO daily 01/15/20 20 2020 Inactive levothyroxine 50 mcg tablet RxNorm: 776754 1 Tablet(s) PO daily 01/15/20 20 2019 Inactive gabapentin 300 mg capsule RxNorm: 754132 1 Capsule(s) PO TID 01/15/20 20 2019 Inactive cetirizine 10 mg tablet RxNorm: 5120925 1 Tablet(s) PO daily 01/15/20 20 2019 Inactive gentamicin 0.3 % eye drops RxNorm: 064992 1 Drop(s) ophthalmic (eye) four times a day 12/29/19 20 2019 Inactive gentamicin 0.3 % eye drops RxNorm: 678425 1 Drop(s) ophthalmic (eye) four times a day 12/29/19 20 2019 Inactive gentamicin 0.3 % eye drops RxNorm: 628093 1 Drop(s) ophthalmic (eye) four times a day 12/29/19 20 2019 Inactive hydrochlorothiazide 25 mg tablet RxNorm: 366499 1 Tablet(s) Oral every day 12/21/19 2019 Inactive Sudafed 12 Hour 120 mg tablet,extended release RxNorm: 6956197 TAKE (1) TABLET BY MOUTH EVERY 12 HOURS NEEDED 12/21/19 20 2019 Inactive loperamide 2 mg tablet RxNorm: 408530 1 Tablet(s) Oral as needed take one tablet after each loose stool, maximum of 8 tablets in 24 hours 12/11/19 20 2019 Inactive loperamide 2 mg tablet RxNorm: 448857 1 Tablet(s) Oral as needed take one tablet after each loose stool, maximum of 8 tablets in 24 hours 12/11/19 20 2019 Inactive atorvastatin 40 mg tablet RxNorm: 160849 1 Tablet(s) Oral every day 11/29/19 20 2020 Inactive quetiapine 100 mg tablet RxNorm: 176969 1 Tablet(s) Oral every night at bedtime 11/28/19 20 2019 Inactive sertraline 100 mg tablet RxNorm: 789070 1 Tablet(s) Oral 11/28/19 20 2019 Inactive omeprazole 20 mg capsule,delayed release RxNorm: 971487 1 Capsule(s) Oral every day 11/20/19 20 2019 Inactive amoxicillin 250 mg capsule RxNorm: 792957 1 Capsule(s) Oral three times a day 11/07/19 20 2019 Inactive multivitamin with iron-mineral tablet RxNorm: 1 Tablet(s) Oral every day 10/29/19 20 2021 Inactive cetirizine 10 mg tablet RxNorm: 0065823 1 Tablet(s) PO daily 10/20/19 20 2019 Inactive This refill negates all other refills of this medication. Please do not auto refill Singulair 10 mg tablet RxNorm: 117422 1 Tablet(s) PO daily 10/20/19 20 2019 Inactive This refill negates all other refills of this medication gabapentin 300 mg capsule RxNorm: 786789 1 Capsule(s) PO TID 10/20/19 20 2019 Inactive lisinopril 2.5 mg tablet RxNorm: 249366 1 Tablet(s) PO daily 10/20/19 20 2019 Inactive levothyroxine 50 mcg tablet RxNorm: 206608 1 Tablet(s) PO daily 10/20/19 20 2019 Inactive This refill negates all other refills of this medication fenugreek seed extract 500 mg capsule RxNorm: 1 Capsule(s) Oral three times a day 10/17/19 20 2021 Inactive hydrochlorothiazide 25 mg tablet RxNorm: 371402 1 Tablet(s) Oral every day 10/17/19 20 2019 Inactive Alcohol Prep Pads RxNorm: 152860 1 Patch TOP QAM 10/16/19 20 2020 Inactive loperamide 2 mg tablet RxNorm: 013995 1 Tablet(s) Oral as needed take one [...] 09/19/202019 Inactive hydrochlorothiazide 25 mg tablet RxNorm: 350639 1 Tablet(s) Oral every day 09/19/202019 Inactive Sudafed 12 Hour 120 mg tablet,extended release RxNorm: 1760041 1 Tablet(s) Oral every 12 hours as needed 09/11/202018 Inactive omeprazole 20 mg capsule,delayed release RxNorm: 427061 1 Capsule(s) Oral every day 09/07/20 19 2019 Inactive Sudafed 12 Hour 120 mg tablet,extended release RxNorm: 2688863 1 Tablet(s) Oral every 12 hours as needed 09/04/202018 Inactive pantoprazole 40 mg tablet,delayed release RxNorm: 011536 1 Tablet(s) Oral every day 08/24/20 19 2018 Inactive discontinue any other H2Blkr. and PPI albuterol sulfate 2.5 mg/3 mL (0.083 %) solution for nebulization RxNorm: 470433 1 Vial Inhalation every four hours as needed as needed for dyspnea 08/17/20 19 2019 Inactive 60/box. This refill negates all other refills of this medication. Please do not fill early. Please do not auto refill. Symbicort 160 mcg-4.5 mcg/actuation HFA aerosol inhaler RxNorm: 9005536 2 Puff(s) INH BID 08/17/20 19 No Stop Date Active Alcohol Prep Pads RxNorm: 499733 1 Patch TOP QAM 08/17/202019 Inactive Ventolin HFA 90 mcg/actuation aerosol inhaler RxNorm: 897289 2 Puff(s) INH QID 08/09/20 19 2019 Inactive Please do not fill early. Please do not auto refill. This refill negates all other refills of this medication True Metrix Glucose Test Strip RxNorm: 1 Test Strips Miscellaneous QAM 08/09/20 19 2019 Inactive 100/container atorvastatin 40 mg tablet RxNorm: 409288 1 Tablet(s) Oral every day 07/04/20 19 2019 Inactive levmetamfetamine 50 mg nasal inhaler RxNorm: 1 Unit(s) NASAL Q3-4H Do not use more than every 3 hours or 8 times/24hours 06/26/20 19 2021 Inactive Please do not auto refill. This refill negates all other refills of this medication buspirone 7.5 mg tablet RxNorm: 211516 1 Tablet(s) PO BID 06/26/20 19 2020 Inactive This refill negates all other refills of this medication hydrochlorothiazide 12.5 mg tablet RxNorm: 128146 1 Tablet(s) PO QAM 06/26/20 19 2019 Inactive Ventolin HFA 90 mcg/actuation aerosol inhaler RxNorm: 421279 2 Puff(s) INH QID 06/26/20 19 2018 Inactive Please do not fill early. Please do not auto refill. This refill negates all other refills of this medication Singulair 10 mg tablet RxNorm: 052590 1 Tablet(s) PO daily 06/26/20 19 2019 Inactive This refill negates all other refills of this medication cetirizine 10 mg tablet RxNorm: 4022463 1 Tablet(s) PO daily 06/26/20 19 2019 Inactive This refill negates all other refills of this medication. Please do not auto refill levothyroxine 50 mcg tablet RxNorm: 617339 1 Tablet(s) PO daily 06/26/20 19 2019 Inactive This refill negates all other refills of this medication diclofenac sodium 75 mg tablet,delayed release RxNorm: 910455 1 Tablet(s) PO BID 06/26/20 19 2019 Inactive This refill negates all other refills of this medication ranitidine 150 mg tablet RxNorm: 145867 1 Tablet(s) PO BID 06/26/20 19 2018 Inactive This refill negates all other refills of this medication Calcium 600-D3 Plus (mag-zinc) 600 mg calcium-800 unit-50 mg tablet RxNorm: 1 Tablet(s) PO daily take an additonal tablet for itching. 06/26/20 19 2018 Inactive This refill negates all other refills of this medication albuterol sulfate 2.5 mg/3 mL (0.083 %) solution for nebulization RxNorm: 812003 1 Vial INH QID 06/26/202018 Inactive 60/box. This refill negates all other refills of this medication. Please do not fill early. Please do not auto refill. lisinopril 2.5 mg tablet RxNorm: 023573 1 Tablet(s) PO daily 06/21/20 19 2019 Inactive gabapentin 300 mg capsule RxNorm: 161339 1 Capsule(s) PO TID 06/21/20 19 2019 Inactive atorvastatin 20 mg tablet RxNorm: 421769 1 Tablet(s) PO QHS 06/07/20 19 2018 Inactive This refill negates all other refills of this medication TRUEplus Lancets 30 gauge RxNorm: 1 Lancets Miscellaneous QAM 05/29/20 19 2018 Inactive 100/box gabapentin 300 mg capsule RxNorm: 333622 1 Capsule(s) PO TID 05/03/20 19 2018 Inactive César Complete (iron) 18 mg iron chewable tablet RxNorm: 1 Tablet(s) PO daily 04/04/202021 Inactive This refill negates all other refills of this medication gabapentin 300 mg capsule RxNorm: 865925 1 Capsule(s) PO TID as needed 02/01/20 19 2018 Inactive True Metrix Glucose Test Strip RxNorm: 1 Test Strips Miscellaneous QA 02/01/20 19 2018 Inactive 100/container Alcohol Prep Pads RxNorm: 961826 1 Patch TOP QAM 02/01/20 19 2018 Inactive TRUEplus Lancets 30 gauge RxNorm: 1 Lancets Miscellaneous QAM 02/01/20 19 2018 Inactive 100/box lisinopril 2.5 mg tablet RxNorm: 748751 1 Tablet(s) PO daily 12/28/19 19 2018 Inactive ranitidine 150 mg tablet RxNorm: 531867 1 Tablet(s) PO BID 10/21/19 19 2018 Inactive This refill negates all other refills of this medication albuterol sulfate 2.5 mg/3 mL (0.083 %) solution for nebulization RxNorm: 884112 1 Vial INH QID 10/21/192018 Inactive 60/box. [...] this medication gabapentin 300 mg capsule RxNorm: 266425 1 Capsule(s) PO TID as needed 10/21/192018 Inactive atorvastatin 20 mg tablet RxNorm: 035638 1 Tablet(s) PO QHS 10/21/19 19 2018 Inactive This refill negates all other refills of this medication trazodone 50 mg tablet RxNorm: 492367 1 Tablet(s) PO QHS 10/21/19 19 2018 Inactive This refill negates all other refills of this medication Ventolin HFA 90 mcg/actuation aerosol inhaler RxNorm: 806787 2 Puff(s) INH QID 10/21/19 19 2018 Inactive Please do not fill early. Please do not auto refill. This refill negates all other refills of this medication Calcium 600-D3 Plus 600 mg calcium-800 unit-50 mg tablet RxNorm: 1 Tablet(s) PO daily take an additonal tablet for itching. 10/21/192018 Inactive This refill negates all other refills of this medication Singulair 10 mg tablet RxNorm: 331022 1 Tablet(s) PO daily 10/21/192018 Inactive This refill negates all other refills of this medication buspirone 7.5 mg tablet RxNorm: 063715 1 Tablet(s) PO BID 10/21/192018 Inactive This refill negates all other refills of this medication diclofenac sodium 75 mg tablet,delayed release RxNorm: 378937 1 Tablet(s) PO BID 10/21/192018 Inactive This refill negates all other refills of this medication hydrochlorothiazide 12.5 mg tablet RxNorm: 721958 1 Tablet(s) PO QAM 10/21/192018 Inactive metoprolol succinate ER 50 mg tablet,extended release 24 hr RxNorm: 367621 1 Tablet(s) PO daily 10/21/192018 Inactive This refill negates all other refills of this medication levothyroxine 50 mcg tablet RxNorm: 649646 1 Tablet(s) PO daily 10/21/192018 Inactive This refill negates all other refills of this medication cetirizine 10 mg tablet RxNorm: 2453329 1 Tablet(s) PO daily 10/21/19 19 2018 Inactive This refill negates all other refills of this medication. Please do not auto refill Flintstones Complete (iron) 18 mg iron chewable tablet RxNorm: 1 Tablet(s) PO daily 10/21/19 19 2018 Inactive This refill negates all other refills of this medication buspirone 7.5 mg tablet RxNorm: 796235 1 Tablet(s) PO BID 10/12/19 19 2018 Inactive cetirizine 10 mg tablet RxNorm: 7370222 1 Tablet(s) PO daily 09/28/20 18 2018 Inactive Guaiasorb DM 10 mg-100 mg/5 mL oral liquid RxNorm: 215071 10 Milliliter(s) PO As needed every 4 hr 09/24/20 18 2018 Inactive Vicks Vaporub 4.7 %-1.2 %-2.6 % topical ointment RxNorm: 8534768 1 Application TOP TID 09/24/20 18 2018 Inactive levmetamfetamine 50 mg nasal inhaler RxNorm: 1 Unit(s) NASAL Q3-4H 09/24/20 18 2017 Inactive sertraline 50 mg tablet RxNorm: 771306 1 Tablet(s) PO daily 09/09/20 18 2018 Inactive Please note dose trazodone 50 mg tablet RxNorm: 732198 1 Tablet(s) PO QHS 09/06/20 18 2018 Inactive sertraline 50 mg tablet RxNorm: 920743 1 Tablet(s) PO daily 09/06/20 18 2017 Inactive amoxicillin 500 mg tablet RxNorm: 388572 1 Tablet(s) PO Q12H 08/31/20 18 2017 Inactive albuterol sulfate 2.5 mg/3 mL (0.083 %) solution for nebulization RxNorm: 780516 1 Vial INH QID 08/10/20 18 2018 Inactive 60/box. Please do not fill early. Please do not auto refill. Prozac 10 mg capsule RxNorm: 169085 1 Capsule(s) PO daily 08/09/20 18 2017 Inactive buspirone 7.5 mg tablet RxNorm: 673875 1 Tablet(s) PO BID 08/09/20 18 2018 Inactive gabapentin 300 mg capsule RxNorm: 800994 1 Capsule(s) PO TID as needed 08/01/20 18 2018 Inactive hydrochlorothiazide 12.5 mg tablet RxNorm: 214045 1 Tablet(s) PO QAM 08/01/20 18 2018 Inactive ranitidine 150 mg tablet RxNorm: 290157 1 Tablet(s) PO BID 08/01/20 18 2018 Inactive Macrobid 100 mg capsule RxNorm: 238387 1 Capsule(s) PO Q12H 06/21/20 18 2017 Inactive Singulair 10 mg tablet RxNorm: 788567 1 Tablet(s) PO daily 06/14/20 18 2018 Inactive Ventolin HFA 90 mcg/actuation aerosol inhaler RxNorm: 9836364 2 Puff(s) INH QID 06/14/20 18 2018 Inactive Singulair 10 mg tablet RxNorm: 429297 1 Tablet(s) PO daily 06/14/20 18 2017 Inactive buspirone 7.5 mg tablet RxNorm: 243522 1 Tablet(s) PO BID 06/14/20 18 2017 Inactive Prozac 10 mg capsule RxNorm: 089481 1 Capsule(s) PO daily 06/14/20 18 2017 Inactive Neilmed Pediatric Sinus Rinse Refill packet RxNorm: 1 Unit Dose NASAL PRN 05/31/20 18 2021 Inactive diclofenac sodium 75 mg tablet,delayed release RxNorm: 785573 1 Tablet(s) PO BID 05/31/20 18 2017 Inactive lisinopril 2.5 mg tablet RxNorm: 771932 1 Tablet(s) PO daily 05/31/20 18 2017 Inactive metoprolol succinate ER 50 mg tablet,extended release 24 hr RxNorm: 755615 1 Tablet(s) PO daily 05/31/20 18 2017 Inactive levothyroxine 50 mcg tablet RxNorm: 597435 1 Tablet(s) PO daily 05/31/20 18 2017 Inactive TRUEplus Lancets 30 gauge RxNorm: 1 Lancets Miscellaneous QAM 05/31/20 18 2017 Inactive 100/box Ventolin HFA 90 mcg/actuation aerosol inhaler RxNorm: 658813 2 Puff(s) INH QID 05/31/20 18 2017 Inactive Aleve 220 mg capsule RxNorm: 1222728 1 Capsule(s) PO BID 05/31/20 18 2018 Inactive ranitidine 150 mg tablet RxNorm: 052046 1 Tablet(s) PO BID 05/31/20 18 2017 Inactive gabapentin 300 mg capsule RxNorm: 085079 1 Capsule(s) PO TID as needed 05/31/20 18 2017 Inactive atorvastatin 20 mg tablet RxNorm: 465446 1 Tablet(s) PO QHS 05/31/20 18 2017 Inactive True Metrix Glucose Test Strip RxNorm: 1 Test Strips Miscellaneous [facility] 05/31/20 18 2017 Inactive 50/container Calcium 600-D3 Plus 600 mg calcium-800 unit-50 mg tablet RxNorm: 1 Tablet(s) PO daily take an additonal tablet for itching. 05/31/20 18 2017 Inactive hydrochlorothiazide 12.5 mg tablet RxNorm: 169643 1 Tablet(s) PO QAM 05/31/20 18 2017 Inactive Flintstones Complete (iron) 18 mg iron chewable tablet RxNorm: 1 Tablet(s) PO daily 05/31/20 18 2017 Inactive d-mannose oral powder RxNorm: PO 18 2021 Inactive True Metrix Glucose Meter RxNorm: miscellaneous 08/17/20 19 2018 Inactive sertraline 50 mg tablet RxNorm: 746219 1 Tablet(s) PO daily 11/28/19 20 2019 Inactive loperamide 2 mg tablet RxNorm: 250599 oral 09/29/20 19 2018 Inactive Symbicort 160 mcg-4.5 mcg/actuation HFA aerosol inhaler RxNorm: 6121094 2 Puff(s) INH BID 08/17/20 19 2018 Inactive Medication Administered No Medication Administered data Procedures Procedure Codes Date Urinalysis, dip stick CPT-4: 18531 09/24/2020 Patient Health Questionnaire CPT-4: DPHQ Electrocardiogram CPT-4: 28415 05/14/2020 Tobacco Assessment/Screening CPT-4: TCA Fall Risk Assessment SNOMED CT: 17971205 4 CPT-4: DFRA01/01/2020Functional AssessmentCPT-4: DFA01/01/2020[place] Fany AssessmentCPT-4: DSWA11/28/2019Patient Health QuestionnaireCPT-4: DPHQ11/28/2019 [place] Fany AssessmentCPT-4: DS10/17/2019HypertensionCPT-4: HTN10/17/[address]: 093542618 CPT-4: DFRA09/19/2019Functional AssessmentCPT-4: DFA111/20/2018Urinalysis, dip stickCPT-4: 655547406/21/2019Tobacco Assessment/ScreeningCPT-4: TCA05/24/2019 Patient Health QuestionnaireCPT-4: DPHQ05/24/2019AHA/REBECCA Classification AssessmentCPT-4: DAHA04/25/2019Controlled Substance ReportCPT-4: CTRSU04/25/2019 Urinalysis, dip stickCPT-4: 656359503/28/2019Urinalysis, dip stickCPT-4: 99792 03/28/20194169Q2D-WzwwvyfvivmfaeuAQP-6: 61662WztuhjkO3T-ZmovntnbhzchrpaJEB-1: 90733 QbnwunhC9Z-IqydkjmkdnbbbuqMQP-3: 14561YbwabfmQ4X-XjjbttfnieqvwnbLSR-5: 93425 BwlgaalK7C-KivxdeklcirnnjoMQE-3: 28685UznfhhaObxfxmcflq ReferralSNOMED CT: 342466140 CPT-4: X22Xejhtzw Reason For Visit No Reason For Visit data Plan of Care Planned Activity Notes Codes Status Date Referral: Pending Gynecology Referral Informatio n Referral ProcessedReferral: Pending Pulmonology Referral InformationReferralProcessed Referral: Pending Psychiatry Referral InformationReferralInitiatedReferral: Pending Respiratory Services Referral InformationReferralInitiatedReferral: Pending Ophthalmology Referral InformationReferralInitiatedReferral: [facility] WPtel: [phone] [id number] USWriter placed a call out to the patient to notify her that it has been recommended that she be seenby 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 Patient agreed to be seen, does not have a provider of choice and no transportationissues. [facility] faxed referral and clinical notes to [facility] in [place], [place] near the patient's home. Patient to [...] seen and prefers a provider in the [place] or [place] area. [facility] placed a call out to everyone listed in the area and the only location that was able to accept the patient's insurance was [address] [address] and spoke with Maylin. Maylin asked that the patient's referral, face sheet and visit notes be faxed to . [facility] faxed over requested documents. Patient appointment confirmation letter generated and mailed to her home address. Patient to call to schedule an appointment.ProcessedReferral: [facility] WPtel: [phone] [id number] USPatient notified that it has been advised that she be seen by Neurology. Patient agreed to be seen and prefers to be seen by a provider in the [place], [place] area. Patient denies any concerns with transportation, and prefers to schedule her own appointment. [facility] placed a call out to [facility] and spoke with Neeraj [...]
--- OUTSIDE RECORDS SUMMARY | 2020-11-27 20:00 | XMS_ITS | CCD ---
Author Name Chivo Bishop NP Address [address] [place] [address] Phone Organization [facility] Phone Care Team Providers Care Vp Of Global Marketing Name Role Phone Palomo KING, Anna Primary Care Provider Unav ailable Unavailable Chronic Care Management Unavaila ble Summary Purpose DataExchange Insurance Providers Payer name Policy type / Coverage type Covered libertarian ID Effective Begin Date Effective End Date SUKI MAYO [id number] Unknown Unknown Family history Mother Diagnosis Age [...] 05/31/2018 Education level Unknown Some High School 10th05/31/20180195LgmaxdhlujMumkgkrDdygxwcfeu95/29/2018Tobacco historySNOMED CT: [id number] never smoked or chewed nexlawi2705/31/2018Alcohol historySNOMED CT: [id number] drinks xkeasui9605/31/2018Has the patient ever used illegal drugs? UnknownHas never used illegal drugs05/31/2018DNR Order/ Advanced Directive UnknownFull Code05/31/2018 Allergies, Adverse Reactions, Alerts Substance Reaction Codes Entered Date Inactivated Date Status *No known food allergies Xqefjfv2509/06/2018No Inactive DateActiveMethylprednisolonehivesRxNorm: 6902 09/06/2018No Inactive DateActive Problems Condition Codes Effective Dates Condition St atus Essential (primary) hypertension ICD-10: I10 ICD-9: 401.9010/03/2018ActiveGERD (gastroesophageal reflux disease)ICD-10: K21.9 ICD-9: 530.8112/03/2019ActiveHistory of surgery on right wristICD-10: Z98.890 ICD-9: V45.8901/1ActiveSuperficial burn of multiple sites of right hand, subsequent encounterICD-10: T23.191D ICD-9: V58.8902/ctiveType 2 diabetes mellitus with peripheral neuropathy ICD-10: E11.42 ICD-9: 250.6002/ActiveAdjustment disorder with mixed anxiety and depressed moodICD-10: F43.23 ICD-9: 309.2812ActiveChronic kidney disease, stage 2 (mild)ICD-10: N18.2 ICD-9: 585.201/1ActiveRight wrist painICD-10: M25.531 ICD-9: 719.4308ActiveUrinary tract infectionICD-10: N39.0 ICD-9: 599.012/ActiveAbnormal urine findingICD-10: R82.90 ICD-9: 791.912/ActiveHypertensive heart disease with heart failureICD-10: I11.0 ICD-9: 402.9107ActivePolyneuropathy, unspecifiedICD-10: G62.9 ICD-9: 356.908ActiveEncounter for screening, unspecifiedICD-10: Z13.9 ICD-9: V82.912/01/2018Active(Z12.4-V76.2) Encounter for screening for malignant neoplasm of cervixICD-10: Z12.4 ICD-9: V76.207/ActiveChronic kidney disease, unspecifiedICD-10: N18.9 ICD-9: 585.909/ActiveEncounter for immunizationICD-10: Z23 ICD-9: V04.8109/06/2020ActiveHyperlipidemia, unspecifiedICD-10: E78.5 ICD-9: 272.408/ActiveHypothyroidism, unspecifiedICD-10: E03.9 ICD-9: 244.912/01/2018Active(Z12.11-V76.51) Encounter for screening for malignant neoplasm of colonICD-10: Z12.11 ICD-9: V76.5107/Active(Z12.31-V76.12) Encounter for screening mammogram for malignant neoplasm of breastICD-10: Z12.31 ICD-9: V76.1207/ActiveAdult BMI 50.0-59.9 kg/sq mICD-10: Z68.43 ICD-9: V85.4308/ActiveAbrasion of toeICD-10: S90.416A ICD-9: 917.005/ActiveObstructive sleep apnea (adult) (pediatric)ICD-10: G47.33 ICD-9: 327.2309ActiveEncounter for screening for tobacco useICD-10: Z01.89 ICD-9: V72.8503ActivePink eyeICD-10: H10.029 ICD-9: 372.0303/ActiveSyncope and collapseICD-10: R55 ICD-9: 780.203/ActiveFecal incontinenceICD-10: R15.9 ICD-9: 787.6003ActiveMixed incontinenceICD-10: N39.46 ICD-9: 788.3308ActiveDiarrheaICD-10: R19.7 ICD-9: 787.9112ActiveType 2 diabetes mellitus without complicationsICD- 10: E11.9 ICD-9: 250.0001/10/2018ActiveSinusitisICD-10: J32.9 ICD-9: 473.902ActiveAsthmaICD-10: J45.909 ICD-9: 493.9011ActiveAcute upper respiratory infection, unspecifiedICD- 10: J06.9 ICD-9: 465.912ActiveApnea, not elsewhere classifiedICD-10: R06.81 ICD-9: 786.0305ActiveEncounter for immunizationICD-10: Z23 ICD-9: V03.907/ActivePatient Not SeenICD-10: UXZ.01 ICD-9: XZ0.107/ActiveOther retirement (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ICD-10: Z79.899 ICD-9: V58.6907/ActiveChest pain, unspecifiedICD-10: R07.9 ICD-9: 786.5002ActiveEncounter for preprocedural cardiovascular examinationICD-10: Z01.810 ICD-9: V72.8106/ActiveDyspnea, unspecifiedICD-10: R06.00 ICD-9: 786.0905ActivePost-traumatic stress disorder, unspecifiedICD-10: F43.10 ICD-9: 309.8112ActiveWheezingICD-10: R06.2 ICD-9: 786.0711ActiveAbnormal electrocardiogram [ECG] [EKG]ICD-10: R94.31 ICD-9: 794.3108/ActiveEdema, unspecifiedICD-10: R60.9 ICD-9: 782.310ActiveHeadacheICD-10: R51 ICD-9: 784.001ActiveLong term (current) use of non-steroidal anti- inflammatories (NSAID)ICD-10: Z79.1 ICD-9: V58.6409Active Medications Medication Codes Instructions Start Date Stop Date Status Fill Instructions omeprazole 20 mg capsule,delayed release RxNorm: 598558 1 Capsule(s) Oral every evening 11/24/19 21 2020 Inactive famotidine 10 mg tablet RxNorm: 351028 1 Tablet(s) Oral every morning 11/24/19 21 2020 Inactive Alcohol Prep Pads RxNorm: 886641 USE EACH MORNING 10/14/19 21 2020 Inactive omeprazole 20 mg capsule,delayed release RxNorm: 245165 1 Capsule(s) Oral two times a day 10/13/19 21 2021 Inactive omeprazole 20 mg capsule,delayed release RxNorm: 915641 TAKE 1 CAPSULE BY MOUTH EVERY DAY 10/08/192021 Inactive Macrobid 100 mg capsule RxNorm: 748961 1 Capsule(s) Oral every 12 hours with food 10/01/202020 Inactive omeprazole 20 mg capsule,delayed release RxNorm: 059572 1 Capsule(s) Oral two times a day 09/24/202021 Inactive metformin 1,000 mg tablet RxNorm: 696588 1 Tablet(s) Oral two times a day 08/19/202020 Inactive start on September 11, 2020 metformin 500 mg tablet RxNorm: 324684 1 Tablet(s) Oral two times a day take with 500mg to equal 1000mg 08/19/202019 Inactive gabapentin 300 mg capsule RxNorm: 607119 TAKE 1 CAPSULE BY MOUTH THREE TIMES DAILY 07/11/202020 Inactive cetirizine 10 mg tablet RxNorm: 8498431 TAKE (1) TABLET BY MOUTH DAILY 07/11/202020 Inactive metformin 500 mg tablet RxNorm: 342276 1 Tablet(s) Oral two times a day 07/08/20 20 2019 Inactive loperamide 2 mg tablet RxNorm: 696142 1 Tablet(s) Oral as needed take one tablet after each loose stool, maximum of 8 tablets in 24 hours 06/24/202021 Inactive Sudafed 12 Hour 120 mg tablet,extended release RxNorm: 1325401 TAKE 1 TABLET BY MOUTH EVERY 12 HOURS NEEDED 06/11/20 20 2019 Inactive hydrochlorothiazide 25 mg tablet RxNorm: 704563 TAKE (1) TABLET BY MOUTH EVERY DAY 06/11/202019 Inactive omeprazole 20 mg capsule,delayed release RxNorm: 397823 TAKE 1 CAPSULE BY MOUTH EVERY DAY 05/14/202020 Inactive metformin 500 mg tablet RxNorm: 248851 1 Tablet(s) Oral every day 05/12/20 20 2019 Inactive True Metrix Glucose Test Strip RxNorm: 1 Test Strips Miscellaneous two times a day as needed 04/17/20 No Stop Date Active metformin 500 mg tablet RxNorm: 300790 1 Tablet(s) Oral every day 04/17/20 20 2019 Inactive diclofenac sodium 75 mg tablet,delayed release RxNorm: 685807 1 Tablet(s) PO BID 04/14/20 20 2021 Inactive This refill negates all other refills of this medication Sudafed 12 Hour 120 mg tablet,extended release RxNorm: 2121018 TAKE 1 TABLET BY MOUTH EVERY 12 HOURS NEEDED 03/14/20 20 2019 Inactive True Metrix Glucose Test Strip RxNorm: 1 Test Strips Miscellaneous every morning 03/13/20 20 2019 Inactive 100/container True Metrix Glucose Test Strip RxNorm: 1 Test Strips Miscellaneous QAM 02/22/20 20 2019 Inactive 100/container loperamide 2 mg tablet RxNorm: 996533 1 Tablet(s) Oral as needed take one tablet after each loose stool, maximum of 8 tablets in 24 hours 02/22/20 20 2019 Inactive levothyroxine 50 mcg tablet RxNorm: 598698 1 Tablet(s) PO daily 01/17/20 20 2020 Inactive cetirizine 10 mg tablet RxNorm: 2912344 1 Tablet(s) PO daily 01/17/20 20 2019 Inactive loperamide 2 mg tablet RxNorm: 859346 1 Tablet(s) Oral as needed take one tablet after each loose stool, maximum of 8 tablets in 24 hours 01/17/20 20 2019 Inactive quetiapine 100 mg tablet RxNorm: 845229 1 Tablet(s) Oral every night at bedtime 01/17/20 20 2019 Inactive gabapentin 300 mg capsule RxNorm: 544155 1 Capsule(s) PO TID 01/17/20 20 2019 Inactive lisinopril 2.5 mg tablet RxNorm: 098385 1 Tablet(s) PO daily 01/15/20 20 2020 Inactive Singulair 10 mg tablet RxNorm: 245698 1 Tablet(s) PO daily 01/15/20 20 2020 Inactive levothyroxine 50 mcg tablet RxNorm: 548148 1 Tablet(s) PO daily 01/15/20 20 2019 Inactive gabapentin 300 mg capsule RxNorm: 289697 1 Capsule(s) PO TID 01/15/20 20 2019 Inactive cetirizine 10 mg tablet RxNorm: 4592960 1 Tablet(s) PO daily 01/15/20 20 2019 Inactive gentamicin 0.3 % eye drops RxNorm: 273560 1 Drop(s) ophthalmic (eye) four times a day 12/29/19 20 2019 Inactive gentamicin 0.3 % eye drops RxNorm: 432270 1 Drop(s) ophthalmic (eye) four times a day 12/29/19 20 2019 Inactive gentamicin 0.3 % eye drops RxNorm: 721400 1 Drop(s) ophthalmic (eye) four times a day 12/29/19 20 2019 Inactive hydrochlorothiazide 25 mg tablet RxNorm: 748675 1 Tablet(s) Oral every day 12/21/19 20 2019 Inactive Sudafed 12 Hour 120 mg tablet,extended release RxNorm: 6142237 TAKE (1) TABLET BY MOUTH EVERY 12 HOURS NEEDED 12/21/19 20 2019 Inactive loperamide 2 mg tablet RxNorm: 621677 1 Tablet(s) Oral as needed take one tablet after each loose stool, maximum of 8 tablets in 24 hours 12/11/19 20 2019 Inactive loperamide 2 mg tablet RxNorm: 266616 1 Tablet(s) Oral as needed take one tablet after each loose stool, maximum of 8 tablets in 24 hours 12/11/19 20 2019 Inactive atorvastatin 40 mg tablet RxNorm: 382357 1 Tablet(s) Oral every day 11/29/19 20 2020 Inactive quetiapine 100 mg tablet RxNorm: 236971 1 Tablet(s) Oral every night at bedtime 11/28/19 20 2019 Inactive sertraline 100 mg tablet RxNorm: 424110 1 Tablet(s) Oral 11/28/19 20 2019 Inactive omeprazole 20 mg capsule,delayed release RxNorm: 342397 1 Capsule(s) Oral every day 11/20/19 20 2019 Inactive amoxicillin 250 mg capsule RxNorm: 440494 1 Capsule(s) Oral three times a day 11/07/19 20 2019 Inactive multivitamin with iron-mineral tablet RxNorm: 1 Tablet(s) Oral every day 10/29/19 20 2021 Inactive cetirizine 10 mg tablet RxNorm: 8804104 1 Tablet(s) PO daily 10/20/19 20 2019 Inactive This refill negates all other refills of this medication. Please do not auto refill Singulair 10 mg tablet RxNorm: 014326 1 Tablet(s) PO daily 10/20/19 20 2019 Inactive This refill negates all other refills of this medication gabapentin 300 mg capsule RxNorm: 456625 1 Capsule(s) PO TID 10/20/19 20 2019 Inactive lisinopril 2.5 mg tablet RxNorm: 311755 1 Tablet(s) PO daily 10/20/19 20 2019 Inactive levothyroxine 50 mcg tablet RxNorm: 750361 1 Tablet(s) PO daily 10/20/19 20 2019 Inactive This refill negates all other refills of this medication fenugreek seed extract 500 mg capsule RxNorm: 1 Capsule(s) Oral three times a day 10/17/19 20 2021 Inactive hydrochlorothiazide 25 mg tablet RxNorm: 926512 1 Tablet(s) Oral every day 10/17/19 20 2019 Inactive Alcohol Prep Pads RxNorm: 535659 1 Patch TOP QAM 10/16/19 20 2020 Inactive loperamide 2 mg tablet RxNorm: 343640 1 Tablet(s) Oral as needed take one [...] 2019 Inactive hydrochlorothiazide 25 mg tablet RxNorm: 649287 1 Tablet(s) Oral every day 09/19/20 19 2019 Inactive Sudafed 12 Hour 120 mg tablet,extended release RxNorm: 7788039 1 Tablet(s) Oral every 12 hours as needed 09/11/20 19 2018 Inactive omeprazole 20 mg capsule,delayed release RxNorm: 560418 1 Capsule(s) Oral every day 09/07/20 19 2019 Inactive Sudafed 12 Hour 120 mg tablet,extended release RxNorm: 9247519 1 Tablet(s) Oral every 12 hours as needed 09/04/20 19 2018 Inactive pantoprazole 40 mg tablet,delayed release RxNorm: 813195 1 Tablet(s) Oral every day 08/24/202018 Inactive discontinue any other H2Blkr. and PPI albuterol sulfate 2.5 mg/3 mL (0.083 %) solution for nebulization RxNorm: 870557 1 Vial Inhalation every four hours as needed as needed for dyspnea 08/17/20 19 2019 Inactive 60/box. This refill negates all other refills of this medication. Please do not fill early. Please do not auto refill. Symbicort 160 mcg-4.5 mcg/actuation HFA aerosol inhaler RxNorm: 3389728 2 Puff(s) INH BID 08/17/20 19 No Stop Date Active Alcohol Prep Pads RxNorm: 215793 1 Patch TOP QAM 08/17/20 19 2019 Inactive Ventolin HFA 90 mcg/actuation aerosol inhaler RxNorm: 797143 2 Puff(s) INH QID 08/09/20 19 2019 Inactive Please do not fill early. Please do not auto refill. This refill negates all other refills of this medication True Metrix Glucose Test Strip RxNorm: 1 Test Strips Miscellaneous QAM 08/09/20 19 2019 Inactive 100/container atorvastatin 40 mg tablet RxNorm: 291569 1 Tablet(s) Oral every day 07/04/20 19 2019 Inactive levmetamfetamine 50 mg nasal inhaler RxNorm: 1 Unit(s) NASAL Q3-4H Do not use more than every 3 hours or 8 times/24hours 06/26/20 19 2021 Inactive Please do not auto refill. This refill negates all other refills of this medication buspirone 7.5 mg tablet RxNorm: 322239 1 Tablet(s) PO BID 06/26/20 19 2020 Inactive This refill negates all other refills of this medication hydrochlorothiazide 12.5 mg tablet RxNorm: 977804 1 Tablet(s) PO QAM 06/26/20 19 2019 Inactive Ventolin HFA 90 mcg/actuation aerosol inhaler RxNorm: 014117 2 Puff(s) INH QID 06/26/20 19 2018 Inactive Please do not fill early. Please do not auto refill. This refill negates all other refills of this medication Singulair 10 mg tablet RxNorm: 959092 1 Tablet(s) PO daily 06/26/20 19 2019 Inactive This refill negates all other refills of this medication cetirizine 10 mg tablet RxNorm: 3746222 1 Tablet(s) PO daily 06/26/20 19 2019 Inactive This refill negates all other refills of this medication. Please do not auto refill levothyroxine 50 mcg tablet RxNorm: 844068 1 Tablet(s) PO daily 06/26/20 19 2019 Inactive This refill negates all other refills of this medication diclofenac sodium 75 mg tablet,delayed release RxNorm: 378121 1 Tablet(s) PO BID 06/26/20 19 2019 Inactive This refill negates all other refills of this medication ranitidine 150 mg tablet RxNorm: 047374 1 Tablet(s) PO BID 06/26/20 19 2018 Inactive This refill negates all other refills of this medication Calcium 600-D3 Plus (mag-zinc) 600 mg calcium-800 unit-50 mg tablet RxNorm: 1 Tablet(s) PO daily take an additonal tablet for itching. 06/26/20 19 2018 Inactive This refill negates all other refills of this medication albuterol sulfate 2.5 mg/3 mL (0.083 %) solution for nebulization RxNorm: 021414 1 Vial INH QID 06/26/20 19 2018 Inactive 60/box. This refill negates all other refills of this medication. Please do not fill early. Please do not auto refill. lisinopril 2.5 mg tablet RxNorm: 561952 1 Tablet(s) PO daily 06/21/20 19 2019 Inactive gabapentin 300 mg capsule RxNorm: 610269 1 Capsule(s) PO TID 06/21/20 19 2019 Inactive atorvastatin 20 mg tablet RxNorm: 507644 1 Tablet(s) PO QHS 06/07/20 19 2018 Inactive This refill negates all other refills of this medication TRUEplus Lancets 30 gauge RxNorm: 1 Lancets Miscellaneous QAM 05/29/20 19 2018 Inactive 100/box gabapentin 300 mg capsule RxNorm: 583887 1 Capsule(s) PO TID 05/03/20 19 2018 Inactive Flnickolas Complete (iron) 18 mg iron chewable tablet RxNorm: 1 Tablet(s) PO daily 04/04/20 19 2021 Inactive This refill negates all other refills of this medication gabapentin 300 mg capsule RxNorm: 039509 1 Capsule(s) PO TID as needed 02/01/202018 Inactive True Metrix Glucose Test Strip RxNorm: 1 Test Strips Miscellaneous QAM 02/01/20 19 2018 Inactive 100/container Alcohol Prep Pads RxNorm: 579386 1 Patch TOP QAM 02/01/202018 Inactive TRUEplus Lancets 30 gauge RxNorm: 1 Lancets Miscellaneous QAM 02/01/20 19 2018 Inactive 100/box lisinopril 2.5 mg tablet RxNorm: 558832 1 Tablet(s) PO daily 12/28/19 19 2018 Inactive ranitidine 150 mg tablet RxNorm: 921448 1 Tablet(s) PO BID 10/21/19 19 2018 Inactive This refill negates all other refills of this medication albuterol sulfate 2.5 mg/3 mL (0.083 %) solution for nebulization RxNorm: 219944 1 Vial INH QID 10/21/19 19 2018 [...] this medication gabapentin 300 mg capsule RxNorm: 042024 1 Capsule(s) PO TID as needed 10/21/19 19 2018 Inactive atorvastatin 20 mg tablet RxNorm: 528888 1 Tablet(s) PO QHS 10/21/192018 Inactive This refill negates all other refills of this medication trazodone 50 mg tablet RxNorm: 346116 1 Tablet(s) PO QHS 10/21/192018 Inactive This refill negates all other refills of this medication Ventolin HFA 90 mcg/actuation aerosol inhaler RxNorm: 601447 2 Puff(s) INH QID 10/21/192018 Inactive Please do not fill early. Please do not auto refill. This refill negates all other refills of this medication Calcium 600-D3 Plus 600 mg calcium-800 unit-50 mg tablet RxNorm: 1 Tablet(s) PO daily take an additonal tablet for itching. 10/21/192018 Inactive This refill negates all other refills of this medication Singulair 10 mg tablet RxNorm: 959058 1 Tablet(s) PO daily 10/21/192018 Inactive This refill negates all other refills of this medication buspirone 7.5 mg tablet RxNorm: 920888 1 Tablet(s) PO BID 10/21/19 19 2018 Inactive This refill negates all other refills of this medication diclofenac sodium 75 mg tablet,delayed release RxNorm: 614847 1 Tablet(s) PO BID 10/21/19 19 2018 Inactive This refill negates all other refills of this medication hydrochlorothiazide 12.5 mg tablet RxNorm: 541267 1 Tablet(s) PO QAM 10/21/19 19 2018 Inactive metoprolol succinate ER 50 mg tablet,extended release 24 hr RxNorm: 688189 1 Tablet(s) PO daily 10/21/19 19 2018 Inactive This refill negates all other refills of this medication levothyroxine 50 mcg tablet RxNorm: 588174 1 Tablet(s) PO daily 10/21/19 19 2018 Inactive This refill negates all other refills of this medication cetirizine 10 mg tablet RxNorm: 3530131 1 Tablet(s) PO daily 10/21/192018 Inactive This refill negates all other refills of this medication. Please do not auto refill Flintstones Complete (iron) 18 mg iron chewable tablet RxNorm: 1 Tablet(s) PO daily 10/21/19 19 2018 Inactive This refill negates all other refills of this medication buspirone 7.5 mg tablet RxNorm: 707669 1 Tablet(s) PO BID 10/12/19 19 2018 Inactive cetirizine 10 mg tablet RxNorm: 1746006 1 Tablet(s) PO daily 09/28/202018 Inactive Guaiasorb DM 10 mg-100 mg/5 mL oral liquid RxNorm: 010227 10 Milliliter(s) PO As needed every 4 hr 09/24/20 18 2018 Inactive Vicks Vaporub 4.7 %-1.2 %-2.6 % topical ointment RxNorm: 0981775 1 Application TOP TID 09/24/20 18 2018 Inactive levmetamfetamine 50 mg nasal inhaler RxNorm: 1 Unit(s) NASAL Q3-4H 09/24/20 18 2017 Inactive sertraline 50 mg tablet RxNorm: 273229 1 Tablet(s) PO daily 09/09/20 18 2018 Inactive Please note dose trazodone 50 mg tablet RxNorm: 525847 1 Tablet(s) PO QHS 09/06/20 18 2018 Inactive sertraline 50 mg tablet RxNorm: 683394 1 Tablet(s) PO daily 09/06/20 18 2017 Inactive amoxicillin 500 mg tablet RxNorm: 331693 1 Tablet(s) PO Q12H 08/31/20 18 2017 Inactive albuterol sulfate 2.5 mg/3 mL (0.083 %) solution for nebulization RxNorm: 723427 1 Vial INH QID 08/10/20 18 2018 Inactive 60/box. Please do not fill early. Please do not auto refill. Prozac 10 mg capsule RxNorm: 496937 1 Capsule(s) PO daily 08/09/20 18 2017 Inactive buspirone 7.5 mg tablet RxNorm: 853190 1 Tablet(s) PO BID 08/09/20 18 2018 Inactive gabapentin 300 mg capsule RxNorm: 877333 1 Capsule(s) PO TID as needed 08/01/20 18 2018 Inactive hydrochlorothiazide 12.5 mg tablet RxNorm: 625618 1 Tablet(s) PO QAM 08/01/20 18 2018 Inactive ranitidine 150 mg tablet RxNorm: 231741 1 Tablet(s) PO BID 08/01/20 18 2018 Inactive Macrobid 100 mg capsule RxNorm: 786080 1 Capsule(s) PO Q12H 06/21/20 18 2017 Inactive Singulair 10 mg tablet RxNorm: 374733 1 Tablet(s) PO daily 06/14/20 18 2018 Inactive Ventolin HFA 90 mcg/actuation aerosol inhaler RxNorm: 0172969 2 Puff(s) INH QID 06/14/20 18 2018 Inactive Singulair 10 mg tablet RxNorm: 378567 1 Tablet(s) PO daily 06/14/20 18 2017 Inactive buspirone 7.5 mg tablet RxNorm: 843735 1 Tablet(s) PO BID 06/14/20 18 2017 Inactive Prozac 10 mg capsule RxNorm: 957470 1 Capsule(s) PO daily 06/14/20 18 2017 Inactive Neilmed Pediatric Sinus Rinse Refill packet RxNorm: 1 Unit Dose NASAL PRN 05/31/20 18 2021 Inactive diclofenac sodium 75 mg tablet,delayed release RxNorm: 750078 1 Tablet(s) PO BID 05/31/20 18 2017 Inactive lisinopril 2.5 mg tablet RxNorm: 310611 1 Tablet(s) PO daily 05/31/20 18 2017 Inactive metoprolol succinate ER 50 mg tablet,extended release 24 hr RxNorm: 270820 1 Tablet(s) PO daily 05/31/20 18 2017 Inactive levothyroxine 50 mcg tablet RxNorm: 160059 1 Tablet(s) PO daily 05/31/20 18 2017 Inactive TRUEplus Lancets 30 gauge RxNorm: 1 Lancets Miscellaneous QAM 05/31/20 18 2017 Inactive 100/box Ventolin HFA 90 mcg/actuation aerosol inhaler RxNorm: 375865 2 Puff(s) INH QID 05/31/20 18 2017 Inactive Aleve 220 mg capsule RxNorm: 3402041 1 Capsule(s) PO BID 05/31/20 18 2018 Inactive ranitidine 150 mg tablet RxNorm: 980465 1 Tablet(s) PO BID 05/31/20 18 2017 Inactive gabapentin 300 mg capsule RxNorm: 243517 1 Capsule(s) PO TID as needed 05/31/20 18 2017 Inactive atorvastatin 20 mg tablet RxNorm: 554891 1 Tablet(s) PO QHS 05/31/20 18 2017 Inactive True Metrix Glucose Test Strip RxNorm: 1 Test Strips Miscellaneous QAM 05/31/20 18 2017 Inactive 50/container Calcium 600-D3 Plus 600 mg calcium-800 unit-50 mg tablet RxNorm: 1 Tablet(s) PO daily take an additonal tablet for itching. 05/31/20 18 2017 Inactive hydrochlorothiazide 12.5 mg tablet RxNorm: 557560 1 Tablet(s) PO QAM 05/31/20 18 2017 Inactive Flintstones Complete (iron) 18 mg iron chewable tablet RxNorm: 1 Tablet(s) PO daily 05/31/20 18 2017 Inactive d-mannose oral powder RxNorm: PO 18 2021 Inactive True Metrix Glucose Meter RxNorm: miscellaneous 08/17/202018 Inactive sertraline 50 mg tablet RxNorm: 781810 1 Tablet(s) PO daily 11/28/19 20 2019 Inactive loperamide 2 mg tablet RxNorm: 531408 oral 09/29/20 19 2018 Inactive Symbicort 160 mcg-4.5 mcg/actuation HFA aerosol inhaler RxNorm: 6201082 2 Puff(s) INH BID 08/17/202018 Inactive Medication Administered No Medication Administered data Procedures Procedure Codes Date Urinalysis, dip stick CPT-4: 60928 09/24/2020 Patient Health Questionnaire CPT-4: DPHQ Electrocardiogram CPT-4: 19929 05/14/2020 Tobacco Assessment/Screening CPT-4: TCA [id number] CPT-4: DFRA01/01/2020Functional AssessmentCPT-4: DFA01/01/2020Semmes Fany AssessmentCPT-4: DSWA11/28/2019Patient Health QuestionnaireCPT-4: DPHQ11/28/2019 Leland Fany AssessmentCPT-4: DSWA10/17/2019HypertensionCPT-4: HTN10/17/2019 [facility] [id number] CPT-4: DFRA09/19/2019Functional AssessmentCPT-4: DFA111/20/2018Urinalysis, dip stickCPT-4: 742301206/21/2019Tobacco Assessment/ScreeningCPT-4: TCA05/24/2019 Patient Health QuestionnaireCPT-4: DPHQ05/24/2019AHA/REBECCA Classification AssessmentCPT-4: DAHA04/25/2019Controlled Substance ReportCPT-4: CTRSU04/25/2019 Urinalysis, dip stickCPT-4: 128249903/28/2019Urinalysis, dip stickCPT-4: 71813 03/28/20197805U9V-BobwryfetbidaxiAOP-2: 79817KbzvttrP1A-KyfxmhdpkfourklZIO-9: 32436 ZngxcnsO6W-NkacsgvasuflvsiIJF-7: 52422XalnmeqP3R-TyeuvwnoyafipvjRVR-1: 92262 IzroenaL7I-VtylvesairlmpaqFQU-2: 76007BocxfegD3A-SywexbynbvkqepgPEF-1: [address]: 266097553 CPT-4: U78Vrbkkvs Reason For Visit Reason For Visit Effective Dates Notes diabetes mellitus 11/28/2020 gastroesophageal reflux disease 11/28/2020 Interim health update 11/28/2020 Encounters Encounter Performer Location Location Address Codes Magdi e ([id number]) (EST PT) EXPANDED MD [facility] FOCUSED TELEHEALTH VISIT Diagnosis: Superficial burn of multiple sites of right hand, subsequent encounter[ICD10: T23.191D] Diagnosis: Type 2 diabetes mellitus with peripheral neuropathy[ICD10: E11.42] Diagnosis: Essential (primary) hypertension[ICD10: I10] Diagnosis: History of surgery on right wrist[ICD10: Z98.890] Diagnosis: GERD (gastroesophageal reflux disease)[ICD10: K21.9]Chivo Bishop [place] [id number] [place] [address] 21547TTL-7: [id number]/ Plan of Care Planned Activity Notes Codes Status Date Visit Plan: patient with access to I phone able to participate in visual and audio telehealth visit T23.191D-V58.89 Superficial burn of multiple sites of right hand, subsequent encounter Reviewed ER notes from [facility] 11/26/20 Superfical burn among dorsal side of right hand, digits 3 to 5. Patient is keeping moist with triple atb cream. Skin is very light pink and intact with no apparent drainage. Discussed skin care, may apply non-adherant sterile gauze if skin blisters E11.42-250.60 Type 2 diabetes mellitus with peripheral neuropathy testing BID and PRN if feeling symptomatic hasn't been testing since right wrist surgery (right side dominant) patient reports feeling symptomatic for BS >100, ranging 100-118, RBS per patient 119 this morning, denies symptomatic Metformin 1000mg BID - received new monitor Biotel through [employer]-participant of [employer] on [employer] - 10/29/2020 hgb A1C 5.6 10/17/2019 Leland Fany 7/10-instructed on good daily foot care routine follow up with Dr. Gonzales, podiatry-diabetic shoe received ophthalmology confirms visit, but doesn't remember when 01/01/2020 FRA complete denies fall 01/01/2020 Functional Assessment complete I10-401.9 Essential (primary) hypertension I11.0-402.91 Hypertensive heart disease with heart failure cont hctz and lisinipril 09/24/2021 GFR 81 05/14/2020 EKG NSR 05/14/2020 OVN SpO2 <88% greater than 7 minutes Echocardiogram DOS 07/02/2020 Norrmal LVSF, EF 60% N18.2-585.2 Chronic kidney disease, stage 2 (mild) avoid nephro toxic drugs, 10/29/2020 GFR 95 09/24/2021 GFR 81 Patient denies ability to drink water stating that it dehydrates her-doesn't knowdiagnosis, but indicates she was told this by previous urologist routine urology follow up-discussed urinary stimulator surgery-next appt pending-but believes it is December K21.9-530.81 GERD (gastroesop hageal reflux disease) trial of famotidine 10mg qam and omeprazole 20mg at bedtime discussed at last visit- has not received yet, encouraged getting Famotidine OTC if symptoms worsen advised to limitlate evening eating, avoid fried, greasy foods, and carbonated beverages G47.33-327.23 Obstructive sleep apnea (adult) (pediatric) J45.909-493.90 Asthma continue inhalers nebulizer routine f/u Dr. Garcia, pulmonology appt August 2020 F43.23-309.28 Adjustment disorder with mixed anxiety and depressed mood routine follow up [facility] 08/19/2020 PHQ 9 Scoere 1, admits to feeling down at times due to not able to bring dog to new apartment and occasionally misses Functional Assessment independent with ADLs E03.9-244.9 Hypothyroidism, unspecified cont levothyroxine E78.5-272.4 Hyperlipidemia, unspecified continue atorvastatin avoid high fat, fried foods discussed benefits of increased activity Z23-V04.81 Encounter for immunization 06/12/2020 influenza vaccine offered and accepted N39.46-788.33Mixed incontinence use of incontinence supplies R55-780.2 Syncope and collapse denies any recent episodes advise to check BS when feeling light headed M25.531-719.43 Right wrist pain Z98.890-V45.89 History of surgery on right wrist-healed, routine follow up with Dr Watson-orthopedics last appt 07/14/2020 quit outpatient PT as didn't feel it was helpful MRI with contrast per orthopedics completed 06/30/2020- per patient revealed torn ligament to right wrist- Dr. Tee Shahid, hand implementation specialist, outpatient surgery 10/09/2019 for arthoscopic exam with debridement- f/u visit 11/22/2020- no further visits planned-note reviewed Z13.9-V82.9 Encounter for screening, unspecified 07/08/2020 Maltreatment assessment complete- patient denies any form of abuse or neglect Z68.43-V85.43Adult BMI 50.0-59.9 kg/sq continues to loose weight trying to avoid soda, drinking sparkling flavore d pal and occasional Heike Green Tea and honey Z12.4-V76.2 Encounter for screening for malignant neoplasm of cervix last pap January 2019 new appt for pap in June 2020-[facility]-reportspap negative-records requested Z01.89- V72.85 Encounter for screening for tobacco use Tobacco screen complete- patient denies ever smoking Z12.31-V76.12 (Z12.31-V76.12) Encounter for screeningmammogram for malignant neoplasm of breast Z12.11-V76.51 (Z12.11- V76.51) Encounter for screening for malignant neoplasm of colon Preventative testing not indicated due to age *I reviewed the most recent CDC guidelines regarding Covid-19/Coronavirus with the patient/caregiver/designee Specific topics reviewed were: ??? Proper handwashing technique and frequency ??? Practicing appropriate Social Distancing/isolation ??? Limiting face touching ??? Proper sanitization of high contact areas in theirenvironment ??? Reporting procedures if symptoms/exposure occur ??? Known Coronavirus transmission m odalities ??? Common symptoms of Covid-19 disease ??? Known high risk populations for developing severe/fatal infections ??? Covid-19 disease transmission from asymptomatic carriers *The person contacted during this visit verbalized understanding of all above topics. 11/28/2020atient Education: Patient Medication [id number]/26/2021 Appointment: Anna Culver WPtel: [address] [place] [address] USETV11/24/2020ppointment: Anna Culver WPtel: [address] [place] [address] [id number]: Anna Culver WPtel: [address] [place] [address] [id number]/25/2019Appointment: Anna Culver WPtel: [address] [place] [address] USETV110/26/2019Appointment: Anna Culver WPtel: [address] [place] [address] USETV110/19/2019Appointment: Anna Culver WPtel: [address] [place] [address] [id number]: Anna Culver WPtel: [address] [place] [address] [id number]: Gianna Birmingham: [address] [facility] 100 [id number] FAFLIX4207/02/2020Appointment: Anna Culver WPtel: [address] [place] [address] [id number]: Anna Culver WPtel: [id number] [place] [address] [id number]: Anna Culver WPtel: [id number] [place] [address] [id number]: Anna Culver WPtel: [address] [place] [address] [id number]: Anna Culver WPtel: [address] [place] [address] [id number]: Anna Culver WPtel: [address] [place] [address] [id number]: Anna Culver WPtel: [address] [place] [address] [id number]: Anna Culver WPtel: [address] [place] [address] [id number]: Anna Culver WPtel: [address] [place] [address] [id number]: Anna Culver WPtel: [address] [place] [address] [id number]: Sudha Hernadez WPtel: [address] [facility] [id number]: Sudha Hernadez WPtel: [address] [facility] [id number]: Charlene Oropeza WPtel: [address] [facility] [id number]: Office, CdtuhwZ22054/26/2019Appointment: Charleen Oropeza WPtel: [address] [facility] [id number]: Hema Palafoxothy WPtel: [address] [facility] [id number]: Javy Rasta WPtel: [address] [facility] b [id number]: Hema Palafoxothy WPtel: [address] [facility] [id number]: Rasta Palafox WPtel: [address] [facility] [id number]: Pending Gynecology Referral InformationReferral ProcessedReferral: Pending Pulmonology Referral InformationReferralProcessed Referral: Pending Psychiatry Referral InformationReferralInitiatedReferral: Pending Respiratory Services Referral InformationReferralInitiatedReferral: Pending Ophthalmology Referral InformationReferralInitiatedReferral: [facility] WPtel: [address] [place] [address] [address] [id number] USWriter placed a call out to the patient to notify her that it has been recommended that she be seenby 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 Patient agreed to be seen, does not have a provider of choice and no transportationissues. [employer] faxed referral and clinical notes to [facility] in [place], [place] near the patient's home. Patient to [...] seen and prefers a provider in the [place] or [place] area. [employer] placed a call out to everyone listed in the area and the only location that was able to accept the patient's insurance was [facility] [place] [address] and spoke with Maylin. Maylin asked that the patient's referral, face sheet and visit notes be faxed to . [employer] faxed over requested documents. Patient appointment confirmation letter generated and mailed to her home address. Patient to call to schedule an appointment.ProcessedReferral: [facility] WPtel: [address] [place], [place] [id number] USPatient notified that it has been advised that she be seen by Neurology. Patient agreed to be seen and prefers to be seen by a provider in the [place], [place] area. Patient denies any concerns with transportation, and prefers to schedule her own appointment. [employer] placed a call out to [facility] and spoke with Neeraj P: who confirmed that their office is able to acceptnew patients and the patient's insurance. After confirming the providers fax number, commercial insurance underwriter faxed over the patient's referral, and most recent clinical notes to F: . Patient to call to schedule her appointment. Appointment confirmation letter mailed to the patient's home address. CCDA completed.ProcessedReferral: Pending Nephrology Referral InformationReferralProcessedReferral: Pending Podiatry Referral Information ReferralInitiatedReferral: Pending Podiatry Referral InformationReferral ProcessedReferral: Pending Podiatry Referral InformationReferralInitiated Instructions Comment Date Assessment and plan reviewed with patient . patient with access to I phone able to participate in visual and audio telehealth visit T23.191D-V58.89 Superficial burn of multiple sites of right hand, subsequent encounter Reviewed ER notes from [facility] 11/26/20 Superfical burn among dorsal side of right hand, digits 3 to 5. Patient is keeping moist with triple atb cream. Skin is very light pink and intact with no apparent drainage. Discussed skin care, may apply non-adherant sterile gauze if skin blisters E11.42-250.60 Type 2 diabetes mellitus with peripheral neuropathy testing BID and PRN if feeling symptomatic hasn't been testing since right wrist surgery (right side dominant) patient reports feeling symptomatic for BS >100, ranging 100-118, RBS per patient 119 this morning, denies symptomatic Metformin 1000mg BID - received new monitor Biotel through [employer]-participant of [employer] - 10/29/2020 hgb A1C 5.6 10/17/2019 Leland Fany 7/10-instructed on good daily foot care routine follow up with Dr. Gonzales, podiatry-diabetic shoe received ophthalmology confirms visit, but doesn't remember when 01/01/2020 FRA complete denies fall 01/01/2020 Functional Assessment complete I10-401.9 Essential (primary) hypertension I11.0-402.91 Hypertensive heart disease with heart failure cont hctz and lisinipril 09/24/2021 GFR 81 05/14/2020 EKG NSR 05/14/2020 OVN SpO2 <88% greater than 7 minutes Echocardiogram DOS 07/02/2020 Norrmal LVSF, EF 60% N18.2-585.2 Chronic kidney disease, stage 2 (mild) avoid nephro toxic drugs, 10/29/2020 GFR 95; 09/24/2021 GFR 81 Patient denies ability to drink water stating that it dehydrates her-doesn't know diagnosis, but indicates she was told this by previous urologist routine urology follow up-discussed urinary stimulator surgery-next appt pending-but believes it isMarch K21.9-530.81 GERD (gastroesophageal reflux disease) trial of famotidine 10mg qam and omeprazole 20mg at bedtime discussed at last visit- has not received yet, encouraged getting Famotidine OTC if symptoms worsen advised to limit late evening eating, avoid fried, greasy foods, and carbonated beverages G47.33-327.23 Obstructive sleep apnea (adult) (pediatric); J45.909-493.90 Asthma continue inhalers nebulizer routine f/u Dr. Garcia, pulmonology appt August 2020 F43.23-309.28 Adjustment disorder with mixed anxiety and depressed mood routine follow up [place] [facility] [place] 08/19/2020 PHQ 9 Scoere 1, admits to feeling down at times due to not able to bring dog to new apartment and occasionally misses Functional Assessment independent with ADLs E03.9-244.9 Hypothyroidism, unspecified cont levothyroxine E78.5-272.4 Hyperlipidemia, unspecified continue atorvastatin avoid high fat, fried foods discussed benefits of increased activity Z23-V04.81 Encounter for immunization 06/12/2020 influenza vaccine offered and accepted N39.46-788.33 Mixed incontinence use of incontinence supplies R55-780.2 Syncope and collapse denies any recent episodes advise to check BS when feeling light headed M25.531-719.43 Right wrist pain; Z98.890-V45.89 History of surgery on right wrist-healed, routine follow up with Dr Watson-orthopedics last appt 07/14/2020 quit outpatient PT as didn't feel it was helpful MRI with contrast per orthopedics completed 06/30/2020- per patient revealed torn ligament to right wrist- Dr. Tee Shahid, hand implementation specialist, outpatient surgery 10/09/2019 for arthoscopic exam with debridement- f/u visit 11/22/2020- no further visits planned-note reviewed Z13.9-V82.9 Encounter for screening, unspecified 07/08/2020 Maltreatment assessment complete-patient denies any form of abuse or neglect Z68.43-V85.43 Adult BMI 50.0-59.9 kg/sq continues to loose weight trying to avoid soda, drinking sparkling flavored pal and occasional He[employer] Green Tea and honey Z12.4-V76.2 Encounter for screening for malignant neoplasm of cervix last pap January 2019 new appt for pap in June 2020-[facility]-reports pap negative-recordsrequested Z01.89-V72.85 Encounter for screening for tobacco use Tobacco screen complete-patient denies ever smoking Z12.31-V76.12 (Z12.31-V76.12) Encounter for screening mammogram for malignant neoplasm of breast Z12.11-V76.51 (Z12.11-V76.51) Encounter for screening for malignant neoplasm of colon Preventative testing not indicated due to age *I reviewed the most recent CDC guidelines regarding Covid-19/Coronavirus with the patient/caregiver/designee Specific topics reviewed were: ??? Proper handwashing technique and frequency ??? Practicing appropriate Social Distancing/isolation ??? Limiting face touching ??? Proper sanitization of high contact areas in their environment ??? Reporting procedures if symptoms/exposure occur ??? Known Coronavirus transmission modalities ??? Common symptoms of Covid-19 disease ??? Known high risk populations for developing severe/fatal infections ??? Covid-19 disease transmission from asymptomatic carriers *The person contacted during this visit verbalized understanding of all above topics. 11/28/2020 Medical Equipment No Medical Equipment data Advance Directives No Advance Directive data
--- OUTSIDE RECORDS SUMMARY | 2021-01-28 20:00 | XMS_ITS | CCD ---
Author Name Chivo Bishop NP Address [address] [place] [address] Phone Organization [employer] [facility] Phone Care Team Providers Care Home Health Administrator Name Role Phone Palomo KING, Anna Primary Care Provider Unav ailable Unavailable Chronic Care Management Unavaila ble Summary Purpose DataExchange Insurance Providers Payer name Policy type / Coverage type Covered republican ID Effective Begin Date Effective End Date SUKI MAYO [id number] Unknown Unknown Family history Mother Diagnosis Age [...] 05/31/2018 Education level Unknown Some High School 10th05/31/20188437AjqqoajaimBwejvozAlpjprlgbh72/29/2018Tobacco historySNOMED CT: 137573700Wre never smoked or chewed dbnqnwu3605/31/2018Alcohol historySNOMED CT: 577321650Gvoau drinks [id number]/31/2018Has the patient ever used illegal drugs? UnknownHas never used illegal drugs05/31/2018DNR Order/ Advanced Directive UnknownFull Code05/31/2018 Allergies, Adverse Reactions, Alerts Substance Reaction Codes Entered Date Inactivated Date Status OxyContin itch, RxNorm: 765844 01/13/2021 No Inactive Da te Active *No known food allergies Lseyfiv8409/06/2018No Inactive DateActiveMethylprednisolonehivesRxNorm: 6902 09/06/2018No Inactive DateActive Problems Condition Codes Effective Dates Condition St atus Chronic kidney disease, stage 2 (mild) I CD-10: N18.2 ICD-9: 585.201/1ActiveElevated liver enzymesICD-10: R74.8 ICD-9: 790.504/1ActiveGERD (gastroesophageal reflux disease)ICD-10: K21.9 ICD-9: 530.8112ActiveHistory of bladder surgeryICD-10: Z98.890 ICD-9: V45.8904/ctiveHypertensive heart disease with heart failureICD- 10: I11.0 ICD-9: 402.9107/ActiveType 2 diabetes mellitus with peripheral neuropathy ICD-10: E11.42 ICD-9: 250.6002ActiveUrinary retention with incomplete bladder emptying ICD-10: R33.9 ICD-9: 788.2104/ctive(Z00.01-V70.0) Encounter for general adult medical examination with abnormal findingsICD-10: Z00.01 ICD-9: V70.004/ctive(Z13.31-V79.0) Encounter for screening for depressionICD-10: Z13.31 ICD-9: V79.004/ctiveEncounter for immunizationICD-10: Z23 ICD-9: V04.8109/06/2020InactiveEssential (primary) hypertensionICD-10: I10 ICD-9: 401.901InactiveAnorexiaICD-10: R63.0 ICD-9: 783.003/1ActiveObstructive sleep apnea (adult) (pediatric)ICD-10: G47.33 ICD-9: 327.2309/ActiveApnea, not elsewhere classifiedICD-10: R06.81 ICD-9: 786.0305InactiveChest pain, unspecifiedICD-10: R07.9 ICD-9: 786.5002InactiveChronic kidney disease, unspecifiedICD-10: N18.9 ICD-9: 585.909/InactiveDiarrheaICD-10: R19.7 ICD-9: 787.9112/InactiveEncounter for immunizationICD-10: Z23 ICD-9: V03.907/InactiveEncounter for preprocedural cardiovascular examinationICD-10: Z01.810 ICD-9: V72.8106/InactiveHeadacheICD-10: R51 ICD-9: 784.001/10/2018InactiveOther terminal worker (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ICD-10: Z79.899 ICD-9: V58.6907/InactiveType 2 diabetes mellitus without complications ICD-10: E11.9 ICD-9: 250.0001/10/2018InactiveWheezingICD-10: R06.2 ICD-9: 786.0711InactiveAbnormal urine findingICD-10: R82.90 ICD-9: 791.912/ResolvedAbrasion of toeICD-10: S90.416A ICD-9: 917.005/ResolvedAcute upper respiratory infection, unspecifiedICD- 10: J06.9 ICD-9: 465.912/12/2018ResolvedPink eyeICD-10: H10.029 ICD-9: 372.0303/ResolvedRight wrist painICD-10: M25.531 ICD-9: 719.4308/09/2020ResolvedSinusitisICD-10: J32.9 ICD-9: 473.902/02/2020ResolvedSuperficial burn of multiple sites of right hand, subsequent encounterICD-10: T23.191D ICD-9: V58.8902/1ResolvedUrinary tract infectionICD-10: N39.0 ICD-9: 599.012/ResolvedAdjustment disorder with mixed anxiety and depressed moodICD-10: F43.23 ICD-9: 309.2812/01/2018ActivePolyneuropathy, unspecifiedICD-10: G62.9 ICD-9: 356.908/ActiveEncounter for screening, unspecifiedICD-10: Z13.9 ICD-9: V82.912Active(Z12.4-V76.2) Encounter for screening for malignant neoplasm of cervixICD-10: Z12.4 ICD-9: V76.207/ActiveHyperlipidemia, unspecifiedICD-10: E78.5 ICD-9: 272.408/ActiveHypothyroidism, unspecifiedICD-10: E03.9 ICD-9: 244.912Active(Z12.11-V76.51) Encounter for screening for malignant neoplasm of colonICD-10: Z12.11 ICD-9: V76.5107/Active(Z12.31-V76.12) Encounter for screening mammogram for malignant neoplasm of breastICD-10: Z12.31 ICD-9: V76.1207ActiveAdult BMI 50.0-59.9 kg/sq mICD-10: Z68.43 ICD-9: V85.4308ActiveSyncope and collapseICD-10: R55 ICD-9: 780.203/ActiveFecal incontinenceICD-10: R15.9 ICD-9: 787.6003ActiveMixed incontinenceICD-10: N39.46 ICD-9: 788.3308ActiveAsthmaICD-10: J45.909 ICD-9: 493.9011ActivePatient Not SeenICD-10: UXZ.01 ICD-9: XZ0.107ActiveDyspnea, unspecifiedICD-10: R06.00 ICD-9: 786.0905ActivePost-traumatic stress disorder, unspecifiedICD-10: F43.10 ICD-9: 309.8112ActiveAbnormal electrocardiogram [ECG] [EKG]ICD-10: R94.31 ICD-9: 794.3108ActiveEdema, unspecifiedICD-10: R60.9 ICD-9: 782.310ActiveLong term (current) use of non-steroidal anti- inflammatories (NSAID)ICD-10: Z79.1 ICD-9: V58.6409Active Medications Medication Codes Instructions Start Date Stop Date Status Fill Instructions metformin 500 mg tablet RxNorm: 705701 1 Tablet(s) Oral two times a day take with 500mg to equal 1000mg 01/14/20 21 2020 Inactive gabapentin 300 mg capsule RxNorm: 630222 TAKE 1 CAPSULE BY MOUTH THREE TIMES A DAY 01/14/20 21 2020 Inactive lisinopril 2.5 mg tablet RxNorm: 508350 TAKE 1 TABLET BY MOUTH DAILY 01/06/20 21 2020 Inactive gabapentin 300 mg capsule RxNorm: 352602 TAKE 1 CAPSULE BY MOUTH THREE TIMES A DAY 01/06/20 21 2020 Inactive Singulair 10 mg tablet RxNorm: 253071 TAKE (1) TABLET BY MOUTH DAILY 01/06/20 21 2020 Inactive metformin 1,000 mg tablet RxNorm: 993410 1 Tablet(s) Oral two times a day 01/06/20 21 2020 Inactive atorvastatin 40 mg tablet RxNorm: 453468 1 Tablet(s) Oral every day 12/06/19 21 2020 Inactive omeprazole 20 mg capsule,delayed release RxNorm: 842241 1 Capsule(s) Oral every evening 11/24/19 21 2020 Inactive famotidine 10 mg tablet RxNorm: 427172 1 Tablet(s) Oral every morning 11/24/19 21 2020 Inactive Alcohol Prep Pads RxNorm: 033997 USE EACH MORNING 10/14/19 21 2020 Inactive omeprazole 20 mg capsule,delayed release RxNorm: 619624 1 Capsule(s) Oral two times a day 10/13/19 21 2021 Inactive omeprazole 20 mg capsule,delayed release RxNorm: 661296 TAKE 1 CAPSULE BY MOUTH EVERY DAY 10/08/19 21 2021 Inactive Macrobid 100 mg capsule RxNorm: 503521 1 Capsule(s) Oral every 12 hours with food 10/01/202020 Inactive omeprazole 20 mg capsule,delayed release RxNorm: 471367 1 Capsule(s) Oral two times a day 09/24/20 2021 Inactive metformin 1,000 mg tablet RxNorm: 379915 1 Tablet(s) Oral two times a day 08/19/20 20 2020 Inactive start on September 11, 2020 metformin 500 mg tablet RxNorm: 578213 1 Tablet(s) Oral two times a day take with 500mg to equal 1000mg 08/19/20 20 2019 Inactive gabapentin 300 mg capsule RxNorm: 017837 TAKE 1 CAPSULE BY MOUTH THREE TIMES DAILY 07/11/20 20 2020 Inactive cetirizine 10 mg tablet RxNorm: 5377277 TAKE (1) TABLET BY MOUTH DAILY 07/11/20 20 2020 Inactive metformin 500 mg tablet RxNorm: 102237 1 Tablet(s) Oral two times a day 07/08/20 20 2019 Inactive loperamide 2 mg tablet RxNorm: 575117 1 Tablet(s) Oral as needed take one tablet after each loose stool, maximum of 8 tablets in 24 hours 06/24/20 20 2021 Inactive Sudafed 12 Hour 120 mg tablet,extended release RxNorm: 8310858 TAKE 1 TABLET BY MOUTH EVERY 12 HOURS NEEDED 06/11/20 20 2019 Inactive hydrochlorothiazide 25 mg tablet RxNorm: 181656 TAKE (1) TABLET BY MOUTH EVERY DAY 06/11/20 20 2019 Inactive omeprazole 20 mg capsule,delayed release RxNorm: 784367 TAKE 1 CAPSULE BY MOUTH EVERY DAY 05/14/202020 Inactive metformin 500 mg tablet RxNorm: 695280 1 Tablet(s) Oral every day 05/12/202019 Inactive True Metrix Glucose Test Strip RxNorm: 1 Test Strips Miscellaneous two times a day as needed 04/17/20 No Stop Date Active metformin 500 mg tablet RxNorm: 586090 1 Tablet(s) Oral every day 04/17/20 20 2019 Inactive diclofenac sodium 75 mg tablet,delayed release RxNorm: 868125 1 Tablet(s) PO BID 04/14/202021 Inactive This refill negates all other refills of this medication Sudafed 12 Hour 120 mg tablet,extended release RxNorm: 1079880 TAKE 1 TABLET BY MOUTH EVERY 12 HOURS NEEDED 03/14/20 20 2019 Inactive True Metrix Glucose Test Strip RxNorm: 1 Test Strips Miscellaneous every morning 03/13/20 20 2019 Inactive 100/container True Metrix Glucose Test Strip RxNorm: 1 Test Strips Miscellaneous QAM 02/22/20 20 2019 Inactive 100/container loperamide 2 mg tablet RxNorm: 319885 1 Tablet(s) Oral as needed take one tablet after each loose stool, maximum of 8 tablets in 24 hours 02/22/20 20 2019 Inactive levothyroxine 50 mcg tablet RxNorm: 839772 1 Tablet(s) PO daily 01/17/20 20 2020 Inactive cetirizine 10 mg tablet RxNorm: 1366492 1 Tablet(s) PO daily 01/17/20 20 2019 Inactive loperamide 2 mg tablet RxNorm: 020823 1 Tablet(s) Oral as needed take one tablet after each loose stool, maximum of 8 tablets in 24 hours 01/17/20 20 2019 Inactive quetiapine 100 mg tablet RxNorm: 557082 1 Tablet(s) Oral every night at bedtime 01/17/20 20 2019 Inactive gabapentin 300 mg capsule RxNorm: 491479 1 Capsule(s) PO TID 01/17/20 20 2019 Inactive levothyroxine 50 mcg tablet RxNorm: 302490 1 Tablet(s) PO daily 01/15/20 20 2019 Inactive lisinopril 2.5 mg tablet RxNorm: 210871 1 Tablet(s) PO daily 01/15/20 20 2020 Inactive gabapentin 300 mg capsule RxNorm: 428709 1 Capsule(s) PO TID 01/15/20 20 2019 Inactive cetirizine 10 mg tablet RxNorm: 8037982 1 Tablet(s) PO daily 01/15/20 20 2019 Inactive Singulair 10 mg tablet RxNorm: 472671 1 Tablet(s) PO daily 01/15/20 20 2020 Inactive gentamicin 0.3 % eye drops RxNorm: 908619 1 Drop(s) ophthalmic (eye) four times a day 12/29/19 20 2019 Inactive gentamicin 0.3 % eye drops RxNorm: 558595 1 Drop(s) ophthalmic (eye) four times a day 12/29/19 20 2019 Inactive gentamicin 0.3 % eye drops RxNorm: 706295 1 Drop(s) ophthalmic (eye) four times a day 12/29/19 20 2019 Inactive hydrochlorothiazide 25 mg tablet RxNorm: 543204 1 Tablet(s) Oral every day 12/21/19 20 2019 Inactive Sudafed 12 Hour 120 mg tablet,extended release RxNorm: 5999596 TAKE (1) TABLET BY MOUTH EVERY 12 HOURS NEEDED 12/21/19 20 2019 Inactive loperamide 2 mg tablet RxNorm: 743151 1 Tablet(s) Oral as needed take one tablet after each loose stool, maximum of 8 tablets in 24 hours 12/11/19 20 2019 Inactive loperamide 2 mg tablet RxNorm: 506065 1 Tablet(s) Oral as needed take one tablet after each loose stool, maximum of 8 tablets in 24 hours 12/11/19 20 2019 Inactive atorvastatin 40 mg tablet RxNorm: 177032 1 Tablet(s) Oral every day 11/29/19 20 2020 Inactive quetiapine 100 mg tablet RxNorm: 669328 1 Tablet(s) Oral every night at bedtime 11/28/19 20 2019 Inactive sertraline 100 mg tablet RxNorm: 015194 1 Tablet(s) Oral 11/28/19 20 2019 Inactive omeprazole 20 mg capsule,delayed release RxNorm: 178636 1 Capsule(s) Oral every day 11/20/19 20 2019 Inactive amoxicillin 250 mg capsule RxNorm: 399520 1 Capsule(s) Oral three times a day 11/07/19 20 2019 Inactive multivitamin with iron-mineral tablet RxNorm: 1 Tablet(s) Oral every day 10/29/19 20 2021 Inactive cetirizine 10 mg tablet RxNorm: 8097613 1 Tablet(s) PO daily 10/20/19 20 2019 Inactive This refill negates all other refills of this medication. Please do not auto refill Singulair 10 mg tablet RxNorm: 981828 1 Tablet(s) PO daily 10/20/19 20 2019 Inactive This refill negates all other refills of this medication gabapentin 300 mg capsule RxNorm: 520232 1 Capsule(s) PO TID 10/20/192019 Inactive lisinopril 2.5 mg tablet RxNorm: 357711 1 Tablet(s) PO daily 10/20/19 20 2019 Inactive levothyroxine 50 mcg tablet RxNorm: 616800 1 Tablet(s) PO daily 10/20/192019 Inactive This refill negates all other refills of this medication fenugreek seed extract 500 mg capsule RxNorm: 1 Capsule(s) Oral three times a day 10/17/192021 Inactive hydrochlorothiazide 25 mg tablet RxNorm: 090458 1 Tablet(s) Oral every day 10/17/192019 Inactive Alcohol Prep Pads RxNorm: 429847 1 Patch TOP QAM 10/16/19 20 2020 Inactive loperamide 2 mg tablet RxNorm: 856161 1 Tablet(s) Oral as needed take one [...] 09/19/202019 Inactive hydrochlorothiazide 25 mg tablet RxNorm: 502202 1 Tablet(s) Oral every day 09/19/202019 Inactive Sudafed 12 Hour 120 mg tablet,extended release RxNorm: 9547115 1 Tablet(s) Oral every 12 hours as needed 09/11/20 19 2018 Inactive omeprazole 20 mg capsule,delayed release RxNorm: 616023 1 Capsule(s) Oral every day 09/07/20 19 2019 Inactive Sudafed 12 Hour 120 mg tablet,extended release RxNorm: 3456682 1 Tablet(s) Oral every 12 hours as needed 09/04/20 19 2018 Inactive pantoprazole 40 mg tablet,delayed release RxNorm: 327458 1 Tablet(s) Oral every day 08/24/20 19 2018 Inactive discontinue any other H2Blkr. and PPI albuterol sulfate 2.5 mg/3 mL (0.083 %) solution for nebulization RxNorm: 957799 1 Vial Inhalation every four hours as needed as needed for dyspnea 08/17/202019 Inactive 60/box. This refill negates all other refills of this medication. Please do not fill early. Please do not auto refill. Symbicort 160 mcg-4.5 mcg/actuation HFA aerosol inhaler RxNorm: 7013089 2 Puff(s) INH BID 08/17/20 No Stop Date Active Alcohol Prep Pads RxNorm: 124399 1 Patch TOP QAM 08/17/20 19 2019 Inactive Ventolin HFA 90 mcg/actuation aerosol inhaler RxNorm: 716583 2 Puff(s) INH QID 08/09/20 19 2019 Inactive Please do not fill early. Please do not auto refill. This refill negates all other refills of this medication True Metrix Glucose Test Strip RxNorm: 1 Test Strips Miscellaneous QAM 08/09/20 19 2019 Inactive 100/container atorvastatin 40 mg tablet RxNorm: 716943 1 Tablet(s) Oral every day 07/04/20 19 2019 Inactive levmetamfetamine 50 mg nasal inhaler RxNorm: 1 Unit(s) NASAL Q3-4H Do not use more than every 3 hours or 8 times/24hours 06/26/20 19 2021 Inactive Please do not auto refill. This refill negates all other refills of this medication buspirone 7.5 mg tablet RxNorm: 983571 1 Tablet(s) PO BID 06/26/20 19 2020 Inactive This refill negates all other refills of this medication hydrochlorothiazide 12.5 mg tablet RxNorm: 697751 1 Tablet(s) PO QAM 06/26/20 19 2019 Inactive Ventolin HFA 90 mcg/actuation aerosol inhaler RxNorm: 134494 2 Puff(s) INH QID 06/26/20 19 2018 Inactive Please do not fill early. Please do not auto refill. This refill negates all other refills of this medication Singulair 10 mg tablet RxNorm: 152656 1 Tablet(s) PO daily 06/26/20 19 2019 Inactive This refill negates all other refills of this medication cetirizine 10 mg tablet RxNorm: 4751493 1 Tablet(s) PO daily 06/26/20 19 2019 Inactive This refill negates all other refills of this medication. Please do not auto refill levothyroxine 50 mcg tablet RxNorm: 577376 1 Tablet(s) PO daily 06/26/20 19 2019 Inactive This refill negates all other refills of this medication diclofenac sodium 75 mg tablet,delayed release RxNorm: 090028 1 Tablet(s) PO BID 06/26/20 19 2019 Inactive This refill negates all other refills of this medication ranitidine 150 mg tablet RxNorm: 891710 1 Tablet(s) PO BID 06/26/20 19 2018 Inactive This refill negates all other refills of this medication Calcium 600-D3 Plus (mag-zinc) 600 mg calcium-800 unit-50 mg tablet RxNorm: 1 Tablet(s) PO daily take an additonal tablet for itching. 06/26/20 19 2018 Inactive This refill negates all other refills of this medication albuterol sulfate 2.5 mg/3 mL (0.083 %) solution for nebulization RxNorm: 065357 1 Vial INH QID 06/26/20 2018 Inactive 60/box. This refill negates all other refills of this medication. Please do not fill early. Please do not auto refill. lisinopril 2.5 mg tablet RxNorm: 050163 1 Tablet(s) PO daily 06/21/20 19 2019 Inactive gabapentin 300 mg capsule RxNorm: 494827 1 Capsule(s) PO TID 06/21/20 19 2019 Inactive atorvastatin 20 mg tablet RxNorm: 678215 1 Tablet(s) PO QHS 06/07/202018 Inactive This refill negates all other refills of this medication TRUEplus Lancets 30 gauge RxNorm: 1 Lancets Miscellaneous QAM 05/29/202018 Inactive 100/box gabapentin 300 mg capsule RxNorm: 524031 1 Capsule(s) PO TID 05/03/20 19 2018 Inactive Flintstones Complete (iron) 18 mg iron chewable tablet RxNorm: 1 Tablet(s) PO daily 04/04/202021 Inactive This refill negates all other refills of this medication gabapentin 300 mg capsule RxNorm: 279346 1 Capsule(s) PO TID as needed 02/01/202018 Inactive True Metrix Glucose Test Strip RxNorm: 1 Test Strips Miscellaneous QA 02/01/20 19 2018 Inactive 100/container Alcohol Prep Pads RxNorm: 419687 1 Patch TOP QA 02/01/202018 Inactive TRUEplus Lancets 30 gauge RxNorm: 1 Lancets Miscellaneous QA 02/01/202018 Inactive 100/box lisinopril 2.5 mg tablet RxNorm: 147927 1 Tablet(s) PO daily 12/28/19 19 2018 Inactive ranitidine 150 mg tablet RxNorm: 847302 1 Tablet(s) PO BID 10/21/19 19 2018 Inactive This refill negates all other refills of this medication albuterol sulfate 2.5 mg/3 mL (0.083 %) solution for nebulization RxNorm: 161460 1 Vial INH QID 10/21/192018 Inactive 60/box. [...] this medication gabapentin 300 mg capsule RxNorm: 680166 1 Capsule(s) PO TID as needed 10/21/19 19 2018 Inactive atorvastatin 20 mg tablet RxNorm: 587552 1 Tablet(s) PO QHS 10/21/192018 Inactive This refill negates all other refills of this medication trazodone 50 mg tablet RxNorm: 414332 1 Tablet(s) PO QHS 10/21/192018 Inactive This refill negates all other refills of this medication Ventolin HFA 90 mcg/actuation aerosol inhaler RxNorm: 660295 2 Puff(s) INH QID 10/21/192018 Inactive Please do not fill early. Please do not auto refill. This refill negates all other refills of this medication Calcium 600-D3 Plus 600 mg calcium-800 unit-50 mg tablet RxNorm: 1 Tablet(s) PO daily take an additonal tablet for itching. 10/21/192018 Inactive This refill negates all other refills of this medication Singulair 10 mg tablet RxNorm: 112168 1 Tablet(s) PO daily 10/21/192018 Inactive This refill negates all other refills of this medication buspirone 7.5 mg tablet RxNorm: 558079 1 Tablet(s) PO BID 10/21/192018 Inactive This refill negates all other refills of this medication diclofenac sodium 75 mg tablet,delayed release RxNorm: 543299 1 Tablet(s) PO BID 10/21/19 19 2018 Inactive This refill negates all other refills of this medication hydrochlorothiazide 12.5 mg tablet RxNorm: 978606 1 Tablet(s) PO QAM 10/21/19 19 2018 Inactive metoprolol succinate ER 50 mg tablet,extended release 24 hr RxNorm: 183191 1 Tablet(s) PO daily 10/21/19 19 2018 Inactive This refill negates all other refills of this medication levothyroxine 50 mcg tablet RxNorm: 193225 1 Tablet(s) PO daily 10/21/19 19 2018 Inactive This refill negates all other refills of this medication cetirizine 10 mg tablet RxNorm: 0587771 1 Tablet(s) PO daily 10/21/19 19 2018 Inactive This refill negates all other refills of this medication. Please do not auto refill Flintstones Complete (iron) 18 mg iron chewable tablet RxNorm: 1 Tablet(s) PO daily 10/21/19 19 2018 Inactive This refill negates all other refills of this medication buspirone 7.5 mg tablet RxNorm: 039263 1 Tablet(s) PO BID 10/12/19 19 2018 Inactive cetirizine 10 mg tablet RxNorm: 2391293 1 Tablet(s) PO daily 09/28/20 18 2018 Inactive Guaiasorb DM 10 mg-100 mg/5 mL oral liquid RxNorm: 563980 10 Milliliter(s) PO As needed every 4 hr 09/24/20 18 2018 Inactive Vicks Vaporub 4.7 %-1.2 %-2.6 % topical ointment RxNorm: 1487044 1 Application TOP TID 09/24/20 18 2018 Inactive levmetamfetamine 50 mg nasal inhaler RxNorm: 1 Unit(s) NASAL Q3-4H 09/24/20 18 2017 Inactive sertraline 50 mg tablet RxNorm: 645786 1 Tablet(s) PO daily 09/09/20 18 2018 Inactive Please note dose trazodone 50 mg tablet RxNorm: 404361 1 Tablet(s) PO QHS 09/06/20 18 2018 Inactive sertraline 50 mg tablet RxNorm: 546409 1 Tablet(s) PO daily 09/06/20 18 2017 Inactive amoxicillin 500 mg tablet RxNorm: 192420 1 Tablet(s) PO Q12H 08/31/20 18 2017 Inactive albuterol sulfate 2.5 mg/3 mL (0.083 %) solution for nebulization RxNorm: 877429 1 Vial INH QID 08/10/20 18 2018 Inactive 60/box. Please do not fill early. Please do not auto refill. Prozac 10 mg capsule RxNorm: 440813 1 Capsule(s) PO daily 08/09/20 18 2017 Inactive buspirone 7.5 mg tablet RxNorm: 657165 1 Tablet(s) PO BID 08/09/20 18 2018 Inactive gabapentin 300 mg capsule RxNorm: 340709 1 Capsule(s) PO TID as needed 08/01/20 18 2018 Inactive hydrochlorothiazide 12.5 mg tablet RxNorm: 813748 1 Tablet(s) PO QAM 08/01/20 18 2018 Inactive ranitidine 150 mg tablet RxNorm: 302828 1 Tablet(s) PO BID 08/01/20 18 2018 Inactive Macrobid 100 mg capsule RxNorm: 350879 1 Capsule(s) PO Q12H 06/21/20 18 2017 Inactive Singulair 10 mg tablet RxNorm: 623331 1 Tablet(s) PO daily 06/14/20 18 2018 Inactive Ventolin HFA 90 mcg/actuation aerosol inhaler RxNorm: 6361590 2 Puff(s) INH QID 06/14/20 18 2018 Inactive Singulair 10 mg tablet RxNorm: 418538 1 Tablet(s) PO daily 06/14/20 18 2017 Inactive buspirone 7.5 mg tablet RxNorm: 778723 1 Tablet(s) PO BID 06/14/20 18 2017 Inactive Prozac 10 mg capsule RxNorm: 488133 1 Capsule(s) PO daily 06/14/20 18 2017 Inactive Neilmed Pediatric Sinus Rinse Refill packet RxNorm: 1 Unit Dose NASAL PRN 05/31/20 18 2021 Inactive diclofenac sodium 75 mg tablet,delayed release RxNorm: 641640 1 Tablet(s) PO BID 05/31/20 18 2017 Inactive lisinopril 2.5 mg tablet RxNorm: 116198 1 Tablet(s) PO daily 05/31/20 18 2017 Inactive metoprolol succinate ER 50 mg tablet,extended release 24 hr RxNorm: 114565 1 Tablet(s) PO daily 05/31/20 18 2017 Inactive levothyroxine 50 mcg tablet RxNorm: 370626 1 Tablet(s) PO daily 05/31/20 18 2017 Inactive TRUEplus Lancets 30 gauge RxNorm: 1 Lancets Miscellaneous QAM 05/31/20 18 2017 Inactive 100/box Ventolin HFA 90 mcg/actuation aerosol inhaler RxNorm: 719443 2 Puff(s) INH QID 05/31/20 18 2017 Inactive Aleve 220 mg capsule RxNorm: 3365185 1 Capsule(s) PO BID 05/31/20 18 2018 Inactive ranitidine 150 mg tablet RxNorm: 148170 1 Tablet(s) PO BID 05/31/20 18 2017 Inactive gabapentin 300 mg capsule RxNorm: 372519 1 Capsule(s) PO TID as needed 05/31/20 18 2017 Inactive atorvastatin 20 mg tablet RxNorm: 778026 1 Tablet(s) PO QHS 05/31/20 18 2017 Inactive True Metrix Glucose Test Strip RxNorm: 1 Test Strips Miscellaneous QAM 05/31/20 18 2017 Inactive 50/container Calcium 600-D3 Plus 600 mg calcium-800 unit-50 mg tablet RxNorm: 1 Tablet(s) PO daily take an additonal tablet for itching. 05/31/20 18 2017 Inactive hydrochlorothiazide 12.5 mg tablet RxNorm: 662614 1 Tablet(s) PO QAM 05/31/20 18 2017 Inactive Flintstones Complete (iron) 18 mg iron chewable tablet RxNorm: 1 Tablet(s) PO daily 05/31/20 18 2017 Inactive d-mannose oral powder RxNorm: PO 18 2021 Inactive True Metrix Glucose Meter RxNorm: miscellaneous 08/17/20 19 2018 Inactive sertraline 50 mg tablet RxNorm: 162873 1 Tablet(s) PO daily 11/28/19 20 2019 Inactive loperamide 2 mg tablet RxNorm: 120231 oral 09/29/20 19 2018 Inactive Symbicort 160 mcg-4.5 mcg/actuation HFA aerosol inhaler RxNorm: 4788388 2 Puff(s) INH BID 08/17/20 19 2018 Inactive Medication Administered No Medication Administered data Results Observation Observation Code Item Item Code Result Date S ervice Location PROTEIN E-PHORESIS 81050 SPE Albumin 2862-1 4.11 g/dL [facility] [address] [place], [place] [address]ANXGSWK [id number] Alpha 22295-36.19 g/dL02/09/2021 [facility] [address] [place], [place] [address]BLESEHP [id number] Alpha 52220-83.76 g/dL02/09/2021 [facility] [address] [place], [place] [address]RNQZEXK [id number] Beta 79333-62.52 g/dL02/09/2021 [facility] [address] [place], [place] [address]QFBMHXC [id number] Beta 32065-37.39 g/dL02/09/2021 [facility] [address] [place], [place] [address]BGHIAUJ [id number] Hwxly3959-96.73 g/dL02/09/2021 [facility] [address] [place], [place] [address]TETFNZB E-[id number] Pathology Vbthpoi35463-0Vqolhx pattern.Meet Costa MD (Clinical Pathologist)02/09/2021 [facility] [address] [place], [place] [address]NCJZPCRXVINDRD (CHANTE)03989Rkphe IgM Nuxa26539-1Yakpai83/10/2021 [facility] [address] [place], [place] [address]RTTARAUOYFPHGK (CHANTE)94683Yrdle IgG Hkcl55024-9Xkhblb89/10/2021 [facility] [address] [place] [place] [address]INEUKSGNWQHPMV (CHANTE)91414Regzc IgA Nhxv75612-6Qdbizn65/10/2021 [facility] [address] [place], [place] [address]TUPEXWFDZPIPCW (CHANTE)50968Pvgkl [place] Slcn41664-2Zkfvit98/10/2021 [facility] [address] [facility] [address]WZVLLCRPCDBXBZ (CHANTE)98559Fjrnu Lambda Yrrq23410-7Ndgdka16/10/2021 [facility] [address] [place], [place] [address]JVXSTRKMVJPISM (CHANTE)83935ZJW Pathology Fufslvp46086-8Idjqxnuo serum Immunofixation. Meet Costa MD (Clinical Pathologist)02/09/2021 [facility] [address] [facility] [place], [place] [address]Cseuutkdb jrylc74317Rjehzimxl A IgM (Acute)34480-3Ray-coczwwkv (Negative)02/05/2021 [facility] [address] [facility] [place] [address]Yejyotzjb ddfjz69107Artzynicr B Surface Zphkevq4588-6Jse-Axtcdrza (Negative)02/05/2021 [facility] [address] [facility] [place] [address]Gfnyucqfm ervuf21857Caffskkqv B Core Antibody (IgM)71368-2Pnr- Reactive (Negative)02/05/2021 [facility] [address] [facility] [place] [address]Oejdcojbl sicim03546Eszlmkuxb C IgG Rxbuuufd92409-7Lki-Vdzglywj (Negative)02/05/2021 [facility] [place] Francisco[place], [place] [address]CJU12549e7IBG3124-0987 mg/dL02/05/2021 [facility] [address] [facility] [place] [address]IYM68744x0YWL7080-3654 mg/dL02/05/2021 [facility] [address] [facility] [place] [address]WEY65226g8PYI1102-1073 mg/dL02/05/2021 [facility] [address] [facility] [place] [address]JYUO 14 (METABOLIC PANEL)07981Jltdwak6477-223 mg/dL01/30/2021 [facility] [address] [place], [place] [address]JIRF 14 (METABOLIC PANEL)18888QZC4975-349 mg/dL01/30/2021 [facility] [address] [place], [place] [address]UGMQ 14 (METABOLIC PANEL)42228Czczaaonut1395-19.7 mg/dL01/30/2021 [facility] [address] [place], [place] [address]DSDV 14 (METABOLIC PANEL)68674QKR/Creat Ggmse1168-856.604 [facility] [address] [place], [place] [address]GNIS 14 (METABOLIC PANEL)13743UHB Zfsmfvxnv61838-023 mL/min/1.73m2 01/30/2021 [facility] [address] [place], [place] [address]XDSN 14 (METABOLIC PANEL)73725JTF Estimated for Americans [address] mL/min/1.83y99201/30/2021 [facility] [address] [place] [address]WZMW 14 (METABOLIC PANEL)08459Upznwf2849-4547 mmol/L01/30/2021 [facility] [address] [place] [address]RLWE 14 (METABOLIC PANEL)69625Bbocnwnlp3611-04.0 mmol/L01/30/2021 [facility] [address] [place], [place] [address]YULU 14 (METABOLIC PANEL)08879Rsiztiey3338-9905 mmol/L01/30/2021 [facility] [address] [place], [place] [address]QYTH 14 (METABOLIC PANEL)04308Kjtwm LP47458-628 mmol/L01/30/2021 [facility] [address] [place] [address]KMNQ 14 (METABOLIC PANEL)64642Irtxb Idw2959-705.0 mEq/L01/30/2021 [facility] [address] [place], [place] [address]GTHH 14 (METABOLIC PANEL)89970Fhjzndmbdh Serum Xnvrewxogv66996-7194 mOsm/kg01/30/2021 [facility] [address] [place], [place] [address]VYOF 14 (METABOLIC PANEL)73769Rgmjdeo01321-66.4 g/dL01/30/2021 [facility] [address] [place], [place] [address]EBER 14 (METABOLIC PANEL)83517Zyxsc Gikziuu1856-91.7 g/dL01/30/2021 [facility] [address] [place], [place] [address]UUJW 14 (METABOLIC PANEL)94307Dgsgvzxo2141-01.3 g/dL01/30/2021 [facility] [address] [place], [place] [address]APCM 14 (METABOLIC PANEL)78480Igdphye/Globulin Qjpyj5176-92.0 01/30/2021 [facility] [address] [place], [place] [address]QAJA 14 (METABOLIC PANEL)664[address]TUW EVPG3585-9368.00 U/L01/30/2021 [facility] [address] [place], [place] [address]DASE 14 (METABOLIC PANEL)33964IMQG/QCF6821-717 U/L01/30/2021 [facility] [address] [place] [address]OEMX 14 (METABOLIC PANEL)72982DDME/CDH8039-3653 U/L01/30/2021 [facility] [address] [place] [address]WVNR 14 (METABOLIC PANEL)18027Umwlo Jszubvvhj9939-32.3 mg/dL 01/30/2021 [facility] [address] [place] [address]NPYX 14 (METABOLIC PANEL)11568Ffefnxw23905-10.1 mg/dL01/30/2021 [facility] [address] [place], [place] [address]SNXI 14 (METABOLIC PANEL)044[address]Vvwiawjna Drbimes63737-23.7 mg/dL 01/30/2021 [facility] [address] [place], [place] [address]PYIMBDG B-2911949Uvasfje O780370-2443 pg/mL01/30/2021 [facility] [address] [place], [place] [address]TZL27756FAG09669-52.830 uIU/mL01/30/2021 [facility] [address] [place], [place] [address]ESOKYEXU CBC W/ DIFF AWY28793QOH3392-63.5 K/ul01/30/2021 [facility] [address] [place], [place] [address]CFOLFNWC CBC W/ DIFF SLN43413NOZ603-73.08 M/uL01/30/2021 [facility] [address] [place], [place] [address]OUKWAJZR CBC W/ DIFF DUE44389Iwayfluepz457-488.4 g/dL01/30/2021 [facility] [address],[place] [address]CNMPUPCJ CBC W/ DIFF UKU77507Pcafpjypac4129-787.6 %01/30/2021 [facility] [address],[place] [address]FFQOYYFL CBC W/ DIFF GFI11550VUP176-685.7 fL01/30/2021 [facility] [address],[place] [address]GHMUKVCD CBC W/ DIFF VFC08302TIL206-901.9 pg01/30/2021 [facility] [address], [place] [address]DIGPKOKP CBC W/ DIFF NKX52529MOBJ784-260.0 g/dL01/30/2021 [facility] [address], [place] [address]RACLLOUG CBC W/ DIFF WUO89958BBU993-671.3 %01/30/2021 [facility] [address] [place] [address]UZEOMQXT CBC W/ DIFF QJJ36038Pxlnjeop Sbkor103-4446 K/uL01/30/2021 [facility] [address] [place] [address]BLILHVJB CBC W/ DIFF TEF28899XTR14736-68.9 fL01/30/2021 [facility] [address] [address]PAHVHCMZ CBC W/ DIFF DDL37483Lwruiowwhoz %770-846.6 %01/30/2021 [facility] [address] [address]HDQTFMWA CBC W/ DIFF YZP14290Riclaugdrjw %736-929.7 %01/30/2021 [facility] [address] [address]TNAHHBAA CBC W/ DIFF ZPO04157Ckegfrxxk %5905-56.4 %01/30/2021 [facility] [address] [address]PMNNTTVM CBC W/ DIFF VAU87557Svwvdbnwnkh %713-816.7 %01/30/2021 [facility] [address], [place] [address]AEAWXEIU CBC W/ DIFF DCV42894Zrkbaiaoe%706-20.6 %01/30/2021 [facility] [address] [facility] [place] [address]GICMBBFJ CBC W/ DIFF HUK75752Ipqsjgqx Jhhcpbmdiz217-65203 /ul 01/30/2021 [facility] [address] [facility] [place] [address]YWTOEMBX CBC W/ DIFF SSQ22778Lnrxzmrq Nippdbowme19243-21185 /ul 01/30/2021 [facility] [address] [facility] [place] [address]MHKDIFCE CBC W/ DIFF CRZ79231Ijlmabga Agnwkrlq834-8701 /ul 01/30/2021 [facility] [address] [facility] [place] [address]PJBMPBFE CBC W/ DIFF GGJ48061Elcuvyxl Bomaazagfh718-47098 /ul 01/30/2021 [facility] [address] [facility] [place] [address]JWKSQRDQ CBC W/ DIFF AGE44518Bnxaggfd Tnljpnbg081-773 /ul01/30/2021 [facility] [address] [facility] [address]PKVHXFTNPZ75607Jnguckaydw31130-736 mg/dL01/30/2021 [facility] [address] [facility] [place] [address]KNCBRM400[address]Apnftg3775-403.0 ng/mL01/30/2021 [facility] [address] [facility] [place] Francisco[place] [address]A5P-UZXBHEPZSEGXZSN0433-2Qvdff HGB O3W93509-04.3 %01/30/2021 [facility] [address] [facility] [place] [address]I4Y-AWGOJGLNWWMTHMT1239-9nFB29855-9021 mg/dL01/30/2021 [facility] [address] [place] [address] Procedures Procedure Codes Date Mini Mental State Exam CPT-4: DMMA Mini Mental Status Exam Where are you?/What is the name of this place?/1 point, Where are you?/What floor are you on now?/1point, Where are you?/What state are you in?/1 point, Where are you?/What county are you in?/1 point, Where are you?/What city are you in?/1 point, What is the date?/What year is it?/1 point, What isthe date?/What season is it?/1 point, What is [...] or buts /1 point, Language/Patient Task: Take apiece of paper in right hand/1 point, Language/Patient Task: Fold the piece of paper in half/1 point, Language/Patient Task: Set the piece of paper on the floor/1 point, Language/Patient Task: Read and perform task written on paper, Close Your Eyes /1 point, Language/Patient Task: Write a sentenceon paper/1 point, Construction/Patient Task: Copy the interlocking five sided figure design/1 point, Total Points Accrued:CPT-4: AIKQWdtrbji86/29/2021 Annual Wellness Visit (Subsequent Visit)CPT-4: X473012dvanced Care PlanningCPT-4: VACP01/13/2021Fall Risk AssessmentSNOMED CT: 651934719 CPT-4: DFRA01/13/2021emmes Fany AssessmentCPT-4: DSWA12/17/2020Urinalysis, dip stickCPT-4: 5718727Patient Health QuestionnaireCPT-4: DPHQ 08/19/2020ElectrocardiogramCPT-4: 6344336Tobacco Assessment/Screening CPT-4: TCA01/01/2020Fall Risk AssessmentSNOMED CT: 233212243 CPT-4: DFRA01/01/2020Functional AssessmentCPT-4: DFA01/01/2020Semmes Fany AssessmentCPT-4: DSWA11/28/2019Patient Health QuestionnaireCPT-4: DPHQ11/28/2019 [place] Fany AssessmentCPT-4: DSWA10/17/2019HypertensionCPT-4: HTN10/17/[address]: 186992506 CPT-4: DFRA09/19/2019Functional AssessmentCPT-4: DFA111/20/2018Urinalysis, dip stickCPT-4: 5564495Tobacco Assessment/ScreeningCPT-4: TCA05/24/2019 Patient Health QuestionnaireCPT-4: DPHQ05/24/2019AHA/REBECCA Classification AssessmentCPT-4: DAHA04/25/2019Controlled Substance ReportCPT-4: CTRSU04/25/2019 Urinalysis, dip stickCPT-4: 087180803/28/2019Urinalysis, dip stickCPT-4: 68944 03/28/20191088R8P-TgcfowtvoxlgkjgEIK-4: 26[address]XynkznsI4C-VhfgxulfyfeydhiYQP-4: 81568 RkgtemcO8F-WjdopbuuovoxvohMZR-3: 54186FyylxupN4O-MxrrpqwzmypsyhnSHA-7: 89386 VhxqxpiY7G-VrhdomlwuovagscLWK-4: 917[address]EsxxuckM3L-FluitvbvauezdliVEG-2: 61244 WuwadjsJ6Y-FmigzjowdeehqjoIMY-2: 490[address]GxjuclcCjjtebncwn ReferralSNOMED CT: 530152324 CPT-4: V99Djlfacn Vital Signs Date Vital 01/29/2021 Blood Pressure 1: 128/70 Code: 8480-6 BMI: 53.3 Code: 04182-3 Heart Rate 1: 75 bpm Height: 4'11 Code: 8302-2 Respiratory Rate: 20 bpm SpO2: 95% Temperature: 37.1 (C) / 98.7 (F) Weight: 264 lbs Code: 32956-2 Reason For Visit Reason For Visit Effective [...] emptying[ICD10: R33.9] Diagnosis: GERD (gastroesophageal reflux disease)[ICD10: K21.9]Chivo Tejada X[address]ou[address] [place] [address] 20[address]VVI-3: [id number] Plan of Care Planned Activity Notes Codes Status Date Patient Education: Patient Medication Summary Giclrefxs83/29/2021atient Education: OtjqiditNixafkltb23/29/2021ppointment: Anna Culver WPtel: [phone] [place] [address] USET01/13/2021ppointment: Anna Culver WPtel: [address] [place] [address] [id number]: Chivo Bishop WPtel: [address] [place] [address] USETV11/28/2020ppointment: Anna Culver WPtel: [address] [place] [address] USETV11/24/2020ppointment: Anna Culver WPtel: [phone] [place] [address] [id number]: Anna Culver WPtel: [address] [place] [address] KAM2319111/25/2019Appointment: Anna Culver WPtel: [phone] [place] [address] USETV110/26/2019Appointment: Anna Culver WPtel: [address] [facility] [address] [place] [address] USETV11/17Appointment: Anna Culver WPtel: [phone] [place] [address] [address] [place] [address] USETV10/Appointment: Anna Culver WPtel: [address] [place] [address] [address] [place] [address] USETV10/03/2020Appointment: Gianna Birmingham MCt: [address] [facility] [address] PiezninPV[address] [id number]: Anna Culver WPtel: [address] [place] [address] [id number]: Anna Culver WPtel: [phone] [place] [address] WMV87319/09/2020Appointment: Anna Culver WPtel: [phone] [place] [address] [id number]/Appointment: Anna Culver WPtel: [phone] [place] [address] [place] [address] [id number]/Appointment: Anna Culver WPtel: [phone] [place] [address] [place] [address] [id number]/Appointment: Anna Culver WPtel: [phone] [place] [address] [place] [address] [id number]/Appointment: Anna Culver WPtel: [phone] [place] [address] [place] [address] [id number]/Appointment: Anna Culver WPtel: [phone] [place] [address] [place] [address] [id number]/Appointment: Anna Culver WPtel: [address] [place], [place] [id number]: Anna Culver WPtel: [address] [place], [place] [id number]: Lori Hernadezmina WPtel: [address] [facility] [address] [id number]: Lori Hernadezmina WPtel: [address] [facility] [address] [id number] [id number]: Charlene Oropeza WPtel: [address] [facility] [address] [id number] [id number]: Enedelia Delgado45Appointment: Charlene Oropeza WPtel: [address] [facility] [address] [id number]: Haupricht, Rasta WPtel: [address] [facility] [address] [id number]: Haupricht, Rasta WPtel: [address] [facility] [address] [id number]: Haupricht, Rasta WPtel: [address] [facility] [address] [id number]: Hasenthilricht, Rasta WPtel: [address] [facility] [address] [id number]: Pending Gynecology Referral InformationReferral ProcessedReferral: Pending Pulmonology Referral InformationReferralProcessed Referral: Pending Psychiatry Referral InformationReferralInitiatedReferral: Pending Respiratory Services Referral InformationReferralInitiatedReferral: Pending Ophthalmology Referral InformationReferralInitiatedReferral: [facility] WPtel: [address] [facility] [address] [id number] USWriter placed a call out to the patient to notify her that it has been recommended that she be seenby 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 Patient agreed to be seen, does not have a provider of choice and no transportationissues. Elevator Worker faxed referral and clinical notes to [facility] in [place], [place] near the patient's home. Patient to [...] seen and prefers a provider in the [place] or [place] area. Elevator Worker placed a call out to everyone listed in the area and the only location that was able to accept the patient's insurance was [address] [address] and spoke with Maylin. Maylin asked that the patient's referral, face sheet and visit notes be faxed to . Elevator Worker faxed over requested documents. Patient appointment confirmation letter generated and mailed to her home address. Patient to call to schedule an appointment.[facility]edRef[facility]: [address] [facility] [address] [id number] USPatient notified that it has been advised that she be seen by Neurology. Patient agreed to be seen and prefers to be seen by a provider in the [place], [place] area. Patient denies any concerns with transportation, and prefers to schedule her own appointment. Elevator Worker [facility] and spoke with Neeraj Mcfarland: who confirmed that their office is able to acceptnew patients and the patient's insurance. After confirming the providers fax number, marketing writer faxed over the patient's referral, and [...]
--- OUTSIDE RECORDS SUMMARY | 2021-04-14 20:00 | XMS_ITS | CCD ---
Author Name Chivo Bishop [place] Address [address] [place] [address] Phone Organization [facility] Phone Care Team Providers Care Car Greaser Name Role Phone Palomo KING, Anna Primary Care Provider Unav ailable Unavailable Chronic Care Management Unavaila ble Summary Purpose DataExchange Insurance Providers Payer name Policy type / Coverage type Covered constitution party ID Effective Begin Date Effective End Date SUKI MAYO [id number] Unknown Unknown Family history Mother Diagnosis Age [...] 05/31/2018 Education level Unknown Some High School 10th05/31/20189845IaqpxsnxjeGszgybbHtrhrjvhgk54/29/2018Tobacco historySNOMED CT: 058631051Esl never smoked or chewed ogkeqhj9405/31/2018Alcohol historySNOMED CT: 737855465Xrwjl drinks dkmjijg3605/31/2018Has the patient ever used illegal drugs? UnknownHas never used illegal drugs05/31/2018DNR Order/ Advanced Directive UnknownFull Code05/31/2018 Allergies, Adverse Reactions, Alerts Substance Reaction Codes Entered Date Inactivated Date Status OxyContin itch, RxNorm: 506153 01/13/2021 No Inactive Da te Active *No known food allergies Ioviscn2309/06/2018No Inactive DateActiveMethylprednisolonehivesRxNorm: 6902 09/06/2018No Inactive DateActive Problems Condition Codes Effective Dates Condition St atus Adjustment disorder with mixed anxiety a nd depressed mood ICD-10: F43.23 ICD-9: 309.2812/01/2018ActiveHypertensive heart disease with heart failureICD- 10: I11.0 ICD-9: 402.9107ActivePost-traumatic stress disorder, unspecifiedICD-10: F43.10 ICD-9: 309.8112ActiveType 2 diabetes mellitus with peripheral neuropathy ICD-10: E11.42 ICD-9: 250.6002ActiveAnorexiaICD-10: R63.0 ICD-9: 783.003/ctiveBlisterICD-10: T14.8XXA ICD-9: 919.206ctiveObstructive sleep apnea (adult) (pediatric)ICD-10: G47.33 ICD-9: 327.2309ActiveEncounter for screening for tobacco useICD-10: Z01.89 ICD-9: V72.8503ActiveElevated liver enzymesICD-10: R74.8 ICD-9: 790.504/ctiveHyperlipidemia, unspecifiedICD-10: E78.5 ICD-9: 272.408ActiveChronic kidney disease, stage 2 (mild)ICD-10: N18.2 ICD-9: 585.201ctiveGERD (gastroesophageal reflux disease)ICD-10: K21.9 ICD-9: 530.8112ActiveHistory of bladder surgeryICD-10: Z98.890 ICD-9: V45.8904/ctiveUrinary retention with incomplete bladder emptying ICD-10: R33.9 ICD-9: 788.2104ctive(Z00.01-V70.0) Encounter for general adult medical examination with abnormal findingsICD-10: Z00.01 ICD-9: V70.004/ctive(Z13.31-V79.0) Encounter for screening for depressionICD-10: Z13.31 ICD-9: V79.004/ctiveEncounter for immunizationICD-10: Z23 ICD-9: V04.8109/06/2020InactiveEssential (primary) hypertensionICD-10: I10 ICD-9: 401.901/10/2018InactiveApnea, not elsewhere classifiedICD-10: R06.81 ICD-9: 786.0305/10/2018InactiveChest pain, unspecifiedICD-10: R07.9 ICD-9: 786.5002/InactiveChronic kidney disease, unspecifiedICD-10: N18.9 ICD-9: 585.909/InactiveDiarrheaICD-10: R19.7 ICD-9: 787.9112InactiveEncounter for immunizationICD-10: Z23 ICD-9: V03.907/InactiveEncounter for preprocedural cardiovascular examinationICD-10: Z01.810 ICD-9: V72.8106/InactiveHeadacheICD-10: R51 ICD-9: 784.001InactiveOther watcher automat long goods (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ICD-10: Z79.899 ICD-9: V58.6907/InactiveType 2 diabetes mellitus without complications ICD-10: E11.9 ICD-9: 250.0001/10/2018InactiveWheezingICD-10: R06.2 ICD-9: 786.0711InactiveAbnormal urine findingICD-10: R82.90 ICD-9: 791.912ResolvedAbrasion of toeICD-10: S90.416A ICD-9: 917.005ResolvedAcute upper respiratory infection, unspecifiedICD- 10: J06.9 ICD-9: 465.912ResolvedPink eyeICD-10: H10.029 ICD-9: 372.0303ResolvedRight wrist painICD-10: M25.531 ICD-9: 719.4308ResolvedSinusitisICD-10: J32.9 ICD-9: 473.902ResolvedSuperficial burn of multiple sites of right hand, subsequent encounterICD-10: T23.191D ICD-9: V58.8902/1ResolvedUrinary tract infectionICD-10: N39.0 ICD-9: 599.012/ResolvedPolyneuropathy, unspecifiedICD-10: G62.9 ICD-9: 356.908/ActiveEncounter for screening, unspecifiedICD-10: Z13.9 ICD-9: V82.912Active(Z12.4-V76.2) Encounter for screening for malignant neoplasm of cervixICD-10: Z12.4 ICD-9: V76.207/ActiveHypothyroidism, unspecifiedICD-10: E03.9 ICD-9: 244.912Active(Z12.11-V76.51) Encounter for screening for malignant neoplasm of colonICD-10: Z12.11 ICD-9: V76.5107/Active(Z12.31-V76.12) Encounter for screening mammogram for malignant neoplasm of breastICD-10: Z12.31 ICD-9: V76.1207/ActiveAdult BMI 50.0-59.9 kg/sq mICD-10: Z68.43 ICD-9: V85.4308ActiveSyncope and collapseICD-10: R55 ICD-9: 780.203ActiveFecal incontinenceICD-10: R15.9 ICD-9: 787.6003ActiveMixed incontinenceICD-10: N39.46 ICD-9: 788.3308/ActiveAsthmaICD-10: J45.909 ICD-9: 493.9011ActivePatient Not SeenICD-10: UXZ.01 ICD-9: XZ0.107ActiveDyspnea, unspecifiedICD-10: R06.00 ICD-9: 786.0905/06/2019ActiveAbnormal electrocardiogram [ECG] [EKG]ICD-10: R94.31 ICD-9: 794.3108ActiveEdema, unspecifiedICD-10: R60.9 ICD-9: 782.310ActiveLong term (current) use of non-steroidal anti- inflammatories (NSAID)ICD-10: Z79.1 ICD-9: V58.64006/13/2018Active Medications Medication Codes Instructions Start Date Stop Date Status Fill Instructions omeprazole 20 mg capsule,delayed release RxNorm: 153336 1 Capsule(s) Oral every evening 04/03/20 21 2020 Inactive sertraline 100 mg tablet RxNorm: 708320 2 Tablet(s) Oral every day 03/13/20 21 2020 Inactive levothyroxine 50 mcg tablet RxNorm: 140336 TAKE (1) TABLET BY MOUTH DAILY 02/04/20 21 2020 Inactive metformin 500 mg tablet RxNorm: 164131 1 Tablet(s) Oral two times a day take with 500mg to equal 1000mg 01/14/20 21 2020 Inactive gabapentin 300 mg capsule RxNorm: 412410 TAKE 1 CAPSULE BY MOUTH THREE TIMES A DAY 01/14/20 21 2020 Inactive lisinopril 2.5 mg tablet RxNorm: 789998 TAKE 1 TABLET BY MOUTH DAILY 01/06/20 21 2020 Inactive gabapentin 300 mg capsule RxNorm: 424508 TAKE 1 CAPSULE BY MOUTH THREE TIMES A DAY 01/06/20 21 2020 Inactive Singulair 10 mg tablet RxNorm: 369347 TAKE (1) TABLET BY MOUTH DAILY 01/06/20 21 2020 Inactive metformin 1,000 mg tablet RxNorm: 409069 1 Tablet(s) Oral two times a day 01/06/20 21 2020 Inactive atorvastatin 40 mg tablet RxNorm: 395276 1 Tablet(s) Oral every day 12/06/19 21 2020 Inactive omeprazole 20 mg capsule,delayed release RxNorm: 394952 1 Capsule(s) Oral every evening 11/24/19 21 2020 Inactive famotidine 10 mg tablet RxNorm: 412557 1 Tablet(s) Oral every morning 11/24/19 21 2020 Inactive Alcohol Prep Pads RxNorm: 165372 USE EACH MORNING 10/14/19 21 2020 Inactive omeprazole 20 mg capsule,delayed release RxNorm: 569395 1 Capsule(s) Oral two times a day 10/13/19 21 2021 Inactive omeprazole 20 mg capsule,delayed release RxNorm: 542803 TAKE 1 CAPSULE BY MOUTH EVERY DAY 10/08/192021 Inactive Macrobid 100 mg capsule RxNorm: 620495 1 Capsule(s) Oral every 12 hours with food 10/01/202020 Inactive omeprazole 20 mg capsule,delayed release RxNorm: 318739 1 Capsule(s) Oral two times a day 09/24/202021 Inactive metformin 1,000 mg tablet RxNorm: 963597 1 Tablet(s) Oral two times a day 08/19/202020 Inactive start on September 11, 2020 metformin 500 mg tablet RxNorm: 947278 1 Tablet(s) Oral two times a day take with 500mg to equal 1000mg 08/19/20 20 2019 Inactive gabapentin 300 mg capsule RxNorm: 369160 TAKE 1 CAPSULE BY MOUTH THREE TIMES DAILY 07/11/20 20 2020 Inactive cetirizine 10 mg tablet RxNorm: 1596521 TAKE (1) TABLET BY MOUTH DAILY 07/11/20 20 2020 Inactive metformin 500 mg tablet RxNorm: 927342 1 Tablet(s) Oral two times a day 07/08/20 20 2019 Inactive loperamide 2 mg tablet RxNorm: 530923 1 Tablet(s) Oral as needed take one tablet after each loose stool, maximum of 8 tablets in 24 hours 06/24/202021 Inactive Sudafed 12 Hour 120 mg tablet,extended release RxNorm: 2263614 TAKE 1 TABLET BY MOUTH EVERY 12 HOURS NEEDED 06/11/20 20 2019 Inactive hydrochlorothiazide 25 mg tablet RxNorm: 005289 TAKE (1) TABLET BY MOUTH EVERY DAY 06/11/202019 Inactive omeprazole 20 mg capsule,delayed release RxNorm: 139766 TAKE 1 CAPSULE BY MOUTH EVERY DAY 05/14/20 2020 Inactive metformin 500 mg tablet RxNorm: 064694 1 Tablet(s) Oral every day 05/12/20 20 2019 Inactive True Metrix Glucose Test Strip RxNorm: 1 Test Strips Miscellaneous two times a day as needed 04/17/20 No Stop Date Active metformin 500 mg tablet RxNorm: 210448 1 Tablet(s) Oral every day 04/17/20 20 2019 Inactive diclofenac sodium 75 mg tablet,delayed release RxNorm: 492706 1 Tablet(s) PO BID 04/14/20 20 2021 Inactive This refill negates all other refills of this medication Sudafed 12 Hour 120 mg tablet,extended release RxNorm: 6210205 TAKE 1 TABLET BY MOUTH EVERY 12 HOURS NEEDED 03/14/20 20 2019 Inactive True Metrix Glucose Test Strip RxNorm: 1 Test Strips Miscellaneous every morning 03/13/20 20 2019 Inactive 100/container True Metrix Glucose Test Strip RxNorm: 1 Test Strips Miscellaneous QAM 02/22/20 20 2019 Inactive 100/container loperamide 2 mg tablet RxNorm: 220570 1 Tablet(s) Oral as needed take one tablet after each loose stool, maximum of 8 tablets in 24 hours 02/22/20 20 2019 Inactive cetirizine 10 mg tablet RxNorm: 4984440 1 Tablet(s) PO daily 01/17/20 20 2019 Inactive loperamide 2 mg tablet RxNorm: 796667 1 Tablet(s) Oral as needed take one tablet after each loose stool, maximum of 8 tablets in 24 hours 01/17/20 20 2019 Inactive quetiapine 100 mg tablet RxNorm: 863494 1 Tablet(s) Oral every night at bedtime 01/17/20 20 2019 Inactive levothyroxine 50 mcg tablet RxNorm: 676839 1 Tablet(s) PO daily 01/17/20 20 2020 Inactive gabapentin 300 mg capsule RxNorm: 479019 1 Capsule(s) PO TID 01/17/20 20 2019 Inactive levothyroxine 50 mcg tablet RxNorm: 672604 1 Tablet(s) PO daily 01/15/20 20 2019 Inactive lisinopril 2.5 mg tablet RxNorm: 259594 1 Tablet(s) PO daily 01/15/20 20 2020 Inactive gabapentin 300 mg capsule RxNorm: 189219 1 Capsule(s) PO TID 01/15/20 20 2019 Inactive cetirizine 10 mg tablet RxNorm: 9106500 1 Tablet(s) PO daily 01/15/20 20 2019 Inactive Singulair 10 mg tablet RxNorm: 031706 1 Tablet(s) PO daily 01/15/20 20 2020 Inactive gentamicin 0.3 % eye drops RxNorm: 983068 1 Drop(s) ophthalmic (eye) four times a day 12/29/19 20 2019 Inactive gentamicin 0.3 % eye drops RxNorm: 512903 1 Drop(s) ophthalmic (eye) four times a day 12/29/19 20 2019 Inactive gentamicin 0.3 % eye drops RxNorm: 369251 1 Drop(s) ophthalmic (eye) four times a day 12/29/19 20 2019 Inactive hydrochlorothiazide 25 mg tablet RxNorm: 518082 1 Tablet(s) Oral every day 12/21/19 20 2019 Inactive Sudafed 12 Hour 120 mg tablet,extended release RxNorm: 9255629 TAKE (1) TABLET BY MOUTH EVERY 12 HOURS NEEDED 12/21/19 20 2019 Inactive loperamide 2 mg tablet RxNorm: 777671 1 Tablet(s) Oral as needed take one tablet after each loose stool, maximum of 8 tablets in 24 hours 12/11/19 20 2019 Inactive loperamide 2 mg tablet RxNorm: 091480 1 Tablet(s) Oral as needed take one tablet after each loose stool, maximum of 8 tablets in 24 hours 12/11/19 20 2019 Inactive atorvastatin 40 mg tablet RxNorm: 599899 1 Tablet(s) Oral every day 11/29/19 20 2020 Inactive quetiapine 100 mg tablet RxNorm: 109074 1 Tablet(s) Oral every night at bedtime 11/28/19 20 2019 Inactive sertraline 100 mg tablet RxNorm: 024023 1 Tablet(s) Oral 11/28/19 20 2019 Inactive omeprazole 20 mg capsule,delayed release RxNorm: 602220 1 Capsule(s) Oral every day 11/20/19 20 2019 Inactive amoxicillin 250 mg capsule RxNorm: 660452 1 Capsule(s) Oral three times a day 11/07/192019 Inactive multivitamin with iron-mineral tablet RxNorm: 1 Tablet(s) Oral every day 10/29/19 20 2021 Inactive cetirizine 10 mg tablet RxNorm: 0703775 1 Tablet(s) PO daily 10/20/192019 Inactive This refill negates all other refills of this medication. Please do not auto refill Singulair 10 mg tablet RxNorm: 234168 1 Tablet(s) PO daily 10/20/192019 Inactive This refill negates all other refills of this medication gabapentin 300 mg capsule RxNorm: 563230 1 Capsule(s) PO TID 10/20/192019 Inactive lisinopril 2.5 mg tablet RxNorm: 330317 1 Tablet(s) PO daily 10/20/192019 Inactive levothyroxine 50 mcg tablet RxNorm: 719301 1 Tablet(s) PO daily 10/20/192019 Inactive This refill negates all other refills of this medication fenugreek seed extract 500 mg capsule RxNorm: 1 Capsule(s) Oral three times a day 10/17/192021 Inactive hydrochlorothiazide 25 mg tablet RxNorm: 816112 1 Tablet(s) Oral every day 10/17/19 20 2019 Inactive Alcohol Prep Pads RxNorm: 427766 1 Patch TOP QAM 10/16/19 20 2020 Inactive loperamide 2 mg tablet RxNorm: 009281 1 Tablet(s) Oral as needed take one [...] 2019 Inactive hydrochlorothiazide 25 mg tablet RxNorm: 270356 1 Tablet(s) Oral every day 09/19/20 19 2019 Inactive Sudafed 12 Hour 120 mg tablet,extended release RxNorm: 8422167 1 Tablet(s) Oral every 12 hours as needed 09/11/20 19 2018 Inactive omeprazole 20 mg capsule,delayed release RxNorm: 031970 1 Capsule(s) Oral every day 09/07/20 19 2019 Inactive Sudafed 12 Hour 120 mg tablet,extended release RxNorm: 8140086 1 Tablet(s) Oral every 12 hours as needed 09/04/20 19 2018 Inactive pantoprazole 40 mg tablet,delayed release RxNorm: 832651 1 Tablet(s) Oral every day 08/24/20 19 2018 Inactive discontinue any other H2Blkr. and PPI albuterol sulfate 2.5 mg/3 mL (0.083 %) solution for nebulization RxNorm: 102829 1 Vial Inhalation every four hours as needed as needed for dyspnea 08/17/202019 Inactive 60/box. This refill negates all other refills of this medication. Please do not fill early. Please do not auto refill. Symbicort 160 mcg-4.5 mcg/actuation HFA aerosol inhaler RxNorm: 1011665 2 Puff(s) INH BID 08/17/20 19 No Stop Date Active Alcohol Prep Pads RxNorm: 375905 1 Patch TOP QAM 08/17/20 19 2019 Inactive Ventolin HFA 90 mcg/actuation aerosol inhaler RxNorm: 286954 2 Puff(s) INH QID 08/09/20 19 2019 Inactive Please do not fill early. Please do not auto refill. This refill negates all other refills of this medication True Metrix Glucose Test Strip RxNorm: 1 Test Strips Miscellaneous QAM 08/09/20 19 2019 Inactive 100/container atorvastatin 40 mg tablet RxNorm: 305187 1 Tablet(s) Oral every day 07/04/20 19 2019 Inactive levmetamfetamine 50 mg nasal inhaler RxNorm: 1 Unit(s) NASAL Q3-4H Do not use more than every 3 hours or 8 times/24hours 06/26/20 19 2021 Inactive Please do not auto refill. This refill negates all other refills of this medication buspirone 7.5 mg tablet RxNorm: 676189 1 Tablet(s) PO BID 06/26/20 19 2020 Inactive This refill negates all other refills of this medication hydrochlorothiazide 12.5 mg tablet RxNorm: 201135 1 Tablet(s) PO QAM 06/26/20 19 2019 Inactive Ventolin HFA 90 mcg/actuation aerosol inhaler RxNorm: 997499 2 Puff(s) INH QID 06/26/20 19 2018 Inactive Please do not fill early. Please do not auto refill. This refill negates all other refills of this medication Singulair 10 mg tablet RxNorm: 432642 1 Tablet(s) PO daily 06/26/20 19 2019 Inactive This refill negates all other refills of this medication cetirizine 10 mg tablet RxNorm: 4626829 1 Tablet(s) PO daily 06/26/20 19 2019 Inactive This refill negates all other refills of this medication. Please do not auto refill levothyroxine 50 mcg tablet RxNorm: 180582 1 Tablet(s) PO daily 06/26/20 19 2019 Inactive This refill negates all other refills of this medication diclofenac sodium 75 mg tablet,delayed release RxNorm: 730504 1 Tablet(s) PO BID 06/26/20 19 2019 Inactive This refill negates all other refills of this medication ranitidine 150 mg tablet RxNorm: 520518 1 Tablet(s) PO BID 06/26/20 19 2018 Inactive This refill negates all other refills of this medication Calcium 600-D3 Plus (mag-zinc) 600 mg calcium-800 unit-50 mg tablet RxNorm: 1 Tablet(s) PO daily take an additonal tablet for itching. 06/26/20 19 2018 Inactive This refill negates all other refills of this medication albuterol sulfate 2.5 mg/3 mL (0.083 %) solution for nebulization RxNorm: 785382 1 Vial INH QID 06/26/20 19 2018 Inactive 60/box. This refill negates all other refills of this medication. Please do not fill early. Please do not auto refill. lisinopril 2.5 mg tablet RxNorm: 099333 1 Tablet(s) PO daily 06/21/20 19 2019 Inactive gabapentin 300 mg capsule RxNorm: 969728 1 Capsule(s) PO TID 06/21/20 19 2019 Inactive atorvastatin 20 mg tablet RxNorm: 039846 1 Tablet(s) PO QHS 06/07/202018 Inactive This refill negates all other refills of this medication TRUEplus Lancets 30 gauge RxNorm: 1 Lancets Miscellaneous QAM 05/29/20 19 2018 Inactive 100/box gabapentin 300 mg capsule RxNorm: 383899 1 Capsule(s) PO TID 05/03/20 19 2018 Inactive Flnickolas Complete (iron) 18 mg iron chewable tablet RxNorm: 1 Tablet(s) PO daily 04/04/20 19 2021 Inactive This refill negates all other refills of this medication gabapentin 300 mg capsule RxNorm: 116983 1 Capsule(s) PO TID as needed 02/01/20 19 2018 Inactive True Metrix Glucose Test Strip RxNorm: 1 Test Strips Miscellaneous QAM 02/01/20 19 2018 Inactive 100/container Alcohol Prep Pads RxNorm: 008832 1 Patch TOP QAM 02/01/20 19 2018 Inactive TRUEplus Lancets 30 gauge RxNorm: 1 Lancets Miscellaneous QAM 02/01/20 19 2018 Inactive 100/box lisinopril 2.5 mg tablet RxNorm: 380417 1 Tablet(s) PO daily 12/28/19 19 2018 Inactive ranitidine 150 mg tablet RxNorm: 286716 1 Tablet(s) PO BID 10/21/19 19 2018 Inactive This refill negates all other refills of this medication albuterol sulfate 2.5 mg/3 mL (0.083 %) solution for nebulization RxNorm: 915662 1 Vial INH QID 10/21/19 19 2018 [...] this medication gabapentin 300 mg capsule RxNorm: 879785 1 Capsule(s) PO TID as needed 10/21/19 19 2018 Inactive atorvastatin 20 mg tablet RxNorm: 141358 1 Tablet(s) PO QHS 10/21/19 19 2018 Inactive This refill negates all other refills of this medication trazodone 50 mg tablet RxNorm: 703384 1 Tablet(s) PO QHS 10/21/19 19 2018 Inactive This refill negates all other refills of this medication Ventolin HFA 90 mcg/actuation aerosol inhaler RxNorm: 778493 2 Puff(s) INH QID 10/21/19 19 2018 Inactive Please do not fill early. Please do not auto refill. This refill negates all other refills of this medication Calcium 600-D3 Plus 600 mg calcium-800 unit-50 mg tablet RxNorm: 1 Tablet(s) PO daily take an additonal tablet for itching. 10/21/192018 Inactive This refill negates all other refills of this medication Singulair 10 mg tablet RxNorm: 786844 1 Tablet(s) PO daily 10/21/192018 Inactive This refill negates all other refills of this medication buspirone 7.5 mg tablet RxNorm: 422120 1 Tablet(s) PO BID 10/21/19 19 2018 Inactive This refill negates all other refills of this medication diclofenac sodium 75 mg tablet,delayed release RxNorm: 325732 1 Tablet(s) PO BID 10/21/19 19 2018 Inactive This refill negates all other refills of this medication hydrochlorothiazide 12.5 mg tablet RxNorm: 385934 1 Tablet(s) PO QAM 10/21/19 19 2018 Inactive metoprolol succinate ER 50 mg tablet,extended release 24 hr RxNorm: 412793 1 Tablet(s) PO daily 10/21/192018 Inactive This refill negates all other refills of this medication levothyroxine 50 mcg tablet RxNorm: 554448 1 Tablet(s) PO daily 10/21/192018 Inactive This refill negates all other refills of this medication cetirizine 10 mg tablet RxNorm: 3615690 1 Tablet(s) PO daily 10/21/192018 Inactive This refill negates all other refills of this medication. Please do not auto refill Flintstones Complete (iron) 18 mg iron chewable tablet RxNorm: 1 Tablet(s) PO daily 10/21/192018 Inactive This refill negates all other refills of this medication buspirone 7.5 mg tablet RxNorm: 524244 1 Tablet(s) PO BID 10/12/192018 Inactive cetirizine 10 mg tablet RxNorm: 8295109 1 Tablet(s) PO daily 09/28/202018 Inactive Guaiasorb DM 10 mg-100 mg/5 mL oral liquid RxNorm: 005372 10 Milliliter(s) PO As needed every 4 hr 09/24/202018 Inactive Vicks Vaporub 4.7 %-1.2 %-2.6 % topical ointment RxNorm: 4599586 1 Application TOP TID 09/24/20 18 2018 Inactive levmetamfetamine 50 mg nasal inhaler RxNorm: 1 Unit(s) NASAL Q3-4H 09/24/20 18 2017 Inactive sertraline 50 mg tablet RxNorm: 395658 1 Tablet(s) PO daily 09/09/20 18 2018 Inactive Please note dose trazodone 50 mg tablet RxNorm: 221835 1 Tablet(s) PO QHS 09/06/20 18 2018 Inactive sertraline 50 mg tablet RxNorm: 644661 1 Tablet(s) PO daily 09/06/20 18 2017 Inactive amoxicillin 500 mg tablet RxNorm: 645901 1 Tablet(s) PO Q12H 08/31/20 18 2017 Inactive albuterol sulfate 2.5 mg/3 mL (0.083 %) solution for nebulization RxNorm: 628115 1 Vial INH QID 08/10/20 18 2018 Inactive 60/box. Please do not fill early. Please do not auto refill. Prozac 10 mg capsule RxNorm: 731220 1 Capsule(s) PO daily 08/09/20 18 2017 Inactive buspirone 7.5 mg tablet RxNorm: 923617 1 Tablet(s) PO BID 08/09/20 18 2018 Inactive gabapentin 300 mg capsule RxNorm: 903734 1 Capsule(s) PO TID as needed 08/01/20 18 2018 Inactive hydrochlorothiazide 12.5 mg tablet RxNorm: 719865 1 Tablet(s) PO QAM 08/01/20 18 2018 Inactive ranitidine 150 mg tablet RxNorm: 647484 1 Tablet(s) PO BID 08/01/20 18 2018 Inactive Macrobid 100 mg capsule RxNorm: 217304 1 Capsule(s) PO Q12H 06/21/20 18 2017 Inactive Singulair 10 mg tablet RxNorm: 342039 1 Tablet(s) PO daily 06/14/20 18 2018 Inactive Ventolin HFA 90 mcg/actuation aerosol inhaler RxNorm: 2804578 2 Puff(s) INH QID 06/14/20 18 2018 Inactive Singulair 10 mg tablet RxNorm: 754434 1 Tablet(s) PO daily 06/14/20 18 2017 Inactive buspirone 7.5 mg tablet RxNorm: 395259 1 Tablet(s) PO BID 06/14/20 18 2017 Inactive Prozac 10 mg capsule RxNorm: 047294 1 Capsule(s) PO daily 06/14/20 18 2017 Inactive Neilmed Pediatric Sinus Rinse Refill packet RxNorm: 1 Unit Dose NASAL PRN 05/31/20 18 2021 Inactive diclofenac sodium 75 mg tablet,delayed release RxNorm: 175829 1 Tablet(s) PO BID 05/31/20 18 2017 Inactive lisinopril 2.5 mg tablet RxNorm: 763697 1 Tablet(s) PO daily 05/31/20 18 2017 Inactive metoprolol succinate ER 50 mg tablet,extended release 24 hr RxNorm: 823372 1 Tablet(s) PO daily 05/31/20 18 2017 Inactive levothyroxine 50 mcg tablet RxNorm: 126102 1 Tablet(s) PO daily 05/31/20 18 2017 Inactive TRUEplus Lancets 30 gauge RxNorm: 1 Lancets Miscellaneous QAM 05/31/20 18 2017 Inactive 100/box Ventolin HFA 90 mcg/actuation aerosol inhaler RxNorm: 694847 2 Puff(s) INH QID 05/31/20 18 2017 Inactive Aleve 220 mg capsule RxNorm: 9262315 1 Capsule(s) PO BID 05/31/20 18 2018 Inactive ranitidine 150 mg tablet RxNorm: 134309 1 Tablet(s) PO BID 05/31/20 18 2017 Inactive gabapentin 300 mg capsule RxNorm: 982120 1 Capsule(s) PO TID as needed 05/31/20 18 2017 Inactive atorvastatin 20 mg tablet RxNorm: 243905 1 Tablet(s) PO QHS 05/31/20 18 2017 Inactive True Metrix Glucose Test Strip RxNorm: 1 Test Strips Miscellaneous QAM 05/31/20 18 2017 Inactive 50/container Calcium 600-D3 Plus 600 mg calcium-800 unit-50 mg tablet RxNorm: 1 Tablet(s) PO daily take an additonal tablet for itching. 05/31/20 18 2017 Inactive hydrochlorothiazide 12.5 mg tablet RxNorm: 639507 1 Tablet(s) PO QAM 05/31/20 18 2017 Inactive Flintstones Complete (iron) 18 mg iron chewable tablet RxNorm: 1 Tablet(s) PO daily 05/31/20 18 2017 Inactive d-mannose oral powder RxNorm: PO 18 2021 Inactive True Metrix Glucose Meter RxNorm: miscellaneous 08/17/20 19 2018 Inactive sertraline 50 mg tablet RxNorm: 330057 1 Tablet(s) PO daily 11/28/19 20 2019 Inactive loperamide 2 mg tablet RxNorm: 042248 oral 09/29/20 19 2018 Inactive Symbicort 160 mcg-4.5 mcg/actuation HFA aerosol inhaler RxNorm: 7393037 2 Puff(s) INH BID 08/17/20 19 2018 Inactive Medication Administered No Medication Administered data Procedures Procedure Codes Date Hypertension CPT-4: HTN 04/01/2021 Tobacco Assessment/Screening CPT-4: TCA 08/2021 Patient Health Questionnaire CPT-4: DPHQ 08/2021 Mini Mental State Exam CPT-4: DMMA 1 Annual Wellness Visit (Subsequent Visit) CPT-4: G0439 01/13/2021 Advanced Care Planning CPT-4: VACP 1 Fall Risk Assessment SNOMED CT: 92167388 4 CPT-4: DFRA01/13/2021emmes Fany AssessmentCPT-4: DSWA12/17/2020Urinalysis, dip stickCPT-4: 222919609/24/2020Patient Health QuestionnaireCPT-4: DPHQ 08/19/2020ElectrocardiogramCPT-4: 1636789Tobacco Assessment/Screening CPT-4: TCA01/01/2020Fall Risk AssessmentSNOMED CT: 514537429 CPT-4: DFRA01/01/2020Functional AssessmentCPT-4: DFA01/01/2020Semmes Fany AssessmentCPT-4: DSWA11/28/2019Patient Health QuestionnaireCPT-4: DPHQ11/28/2019 Alma Fany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
--- OUTSIDE RECORDS SUMMARY | 2021-05-20 20:00 | XMS_ITS | CCD ---
Author Name Chivo Bishop NP Address [address] [address] [place] [address] Phone Organization [facility] Phone Care Team Providers Care Bookkeeper Name Role Phone Palomo KING, Anna Primary Care Provider Unav ailable Unavailable Chronic Care Management Unavaila ble Summary Purpose DataExchange Insurance Providers Payer name Policy type / Coverage type Covered green party ID Effective Begin Date Effective End Date SUKI MAYO [id number] Unknown Unknown Family history Mother Diagnosis Age [...] 05/31/2018 Education level Unknown Some High School 10th05/31/20185607QcygdwwfkaBvygvqzRykqnsatbe93/29/2018Tobacco historySNOMED CT: 516590161Oqo never smoked or chewed sikbgzi0605/31/2018Alcohol historySNOMED CT: 584267662Jhvaf drinks fvgyejh2705/31/2018Has the patient ever used illegal drugs? UnknownHas never used illegal drugs05/31/2018DNR Order/ Advanced Directive UnknownFull Code05/31/2018 Allergies, Adverse Reactions, Alerts Substance Reaction Codes Entered Date Inactivated Date Status OxyContin itch, RxNorm: 355924 01/13/2021 No Inactive Da te Active *No known food allergies Lxkoibm1409/06/2018No Inactive DateActiveMethylprednisolonehivesRxNorm: 6902 09/06/2018No Inactive DateActive Problems Condition Codes Effective Dates Condition St atus Chronic kidney disease, stage 2 (mild) I CD-10: N18.2 ICD-9: 585.201/ctiveFamily history of seizuresICD-10: Z84.89 ICD-9: V19.807/ctiveHypertensive heart disease with heart failureICD-10: I11.0 ICD-9: 402.9107/ActiveSyncope and collapseICD-10: R55 ICD-9: 780.ActiveType 2 diabetes mellitus with peripheral neuropathy ICD-10: E11.42 ICD-9: 250.6002ActiveAnorexiaICD-10: R63.0 ICD-9: 783.003/ctiveAdjustment disorder with mixed anxiety and depressed moodICD-10: F43.23 ICD-9: 309.2812ActivePost-traumatic stress disorder, unspecifiedICD-10: F43.10 ICD-9: 309.8112ActiveBlisterICD-10: T14.8XXA ICD-9: 919.2061ActiveObstructive sleep apnea (adult) (pediatric)ICD-10: G47.33 ICD-9: 327.2309ActiveEncounter for screening for tobacco useICD-10: Z01.89 ICD-9: V72.8503ActiveElevated liver enzymesICD-10: R74.8 ICD-9: 790.504/ctiveHyperlipidemia, unspecifiedICD-10: E78.5 ICD-9: 272.408ActiveGERD (gastroesophageal reflux disease)ICD-10: K21.9 ICD-9: 530.8112ActiveHistory of bladder surgeryICD-10: Z98.890 ICD-9: V45.8904ctiveUrinary retention with incomplete bladder emptying ICD-10: R33.9 ICD-9: 788.2104/ctive(Z00.01-V70.0) Encounter for general adult medical examination with abnormal findingsICD-10: Z00.01 ICD-9: V70.004/1Active(Z13.31-V79.0) Encounter for screening for depressionICD-10: Z13.31 ICD-9: V79.0041ActiveEncounter for immunizationICD-10: Z23 ICD-9: V04.8109/06/2020InactiveEssential (primary) hypertensionICD-10: I10 ICD-9: 401.901/10/2018InactiveApnea, not elsewhere classifiedICD-10: R06.81 ICD-9: 786.0305/10/2018InactiveChest pain, unspecifiedICD-10: R07.9 ICD-9: 786.5002/InactiveChronic kidney disease, unspecifiedICD-10: N18.9 ICD-9: 585.909/InactiveDiarrheaICD-10: R19.7 ICD-9: 787.9112InactiveEncounter for immunizationICD-10: Z23 ICD-9: V03.907/InactiveEncounter for preprocedural cardiovascular examinationICD-10: Z01.810 ICD-9: V72.8106/InactiveHeadacheICD-10: R51 ICD-9: 784.001InactiveOther jail (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ICD-10: Z79.899 ICD-9: V58.6907/InactiveType 2 diabetes mellitus without complications ICD-10: E11.9 ICD-9: 250.0001InactiveWheezingICD-10: R06.2 ICD-9: 786.0711InactiveAbnormal urine findingICD-10: R82.90 ICD-9: 791.912ResolvedAbrasion of toeICD-10: S90.416A ICD-9: 917.005ResolvedAcute upper respiratory infection, unspecifiedICD- 10: J06.9 ICD-9: 465.912/12/2018ResolvedPink eyeICD-10: H10.029 ICD-9: 372.0303ResolvedRight wrist painICD-10: M25.531 ICD-9: 719.4308/09/2020ResolvedSinusitisICD-10: J32.9 ICD-9: 473.902ResolvedSuperficial burn of multiple sites [...] V76.1207/ActiveAdult BMI 50.0-59.9 kg/sq mICD-10: Z68.43 ICD-9: V85.4308ActiveFecal incontinenceICD-10: R15.9 ICD-9: 787.6003ActiveMixed incontinenceICD-10: N39.46 ICD-9: 788.3308ActiveAsthmaICD-10: J45.909 ICD-9: 493.9011ActivePatient Not SeenICD-10: UXZ.01 ICD-9: XZ0.107/ActiveDyspnea, unspecifiedICD-10: R06.00 ICD-9: 786.0902/08/2019ActiveAbnormal electrocardiogram [ECG] [EKG]ICD-10: R94.31 ICD-9: 794.31005/30/2018ActiveEdema, unspecifiedICD-10: R60.9 ICD-9: 782.310ActiveLong term (current) use of non-steroidal anti- inflammatories (NSAID)ICD-10: Z79.1 ICD-9: V58.64006/13/2018Active Medications Medication Codes Instructions Start Date Stop Date Status Fill Instructions Heartburn Relief (famotidine) 10 mg tablet RxNorm: 051725 Take 1 Tablet(s) Oral every morning 05/07/20 21 2020 Inactive omeprazole 20 mg capsule,delayed release RxNorm: 909063 1 Capsule(s) Oral every evening 04/03/20 21 2020 Inactive sertraline 100 mg tablet RxNorm: 524614 2 Tablet(s) Oral every day 03/13/202020 Inactive levothyroxine 50 mcg tablet RxNorm: 862252 TAKE (1) TABLET BY MOUTH DAILY 02/04/20 21 2020 Inactive metformin 500 mg tablet RxNorm: 668545 1 Tablet(s) Oral two times a day take with 500mg to equal 1000mg 01/14/20 21 2020 Inactive gabapentin 300 mg capsule RxNorm: 151367 TAKE 1 CAPSULE BY MOUTH THREE TIMES A DAY 01/14/20 21 2020 Inactive lisinopril 2.5 mg tablet RxNorm: 357916 TAKE 1 TABLET BY MOUTH DAILY 01/06/20 21 2020 Inactive gabapentin 300 mg capsule RxNorm: 450375 TAKE 1 CAPSULE BY MOUTH THREE TIMES A DAY 01/06/20 21 2020 Inactive Singulair 10 mg tablet RxNorm: 326701 TAKE (1) TABLET BY MOUTH DAILY 01/06/20 21 2020 Inactive metformin 1,000 mg tablet RxNorm: 266061 1 Tablet(s) Oral two times a day 01/06/20 21 2020 Inactive atorvastatin 40 mg tablet RxNorm: 313021 1 Tablet(s) Oral every day 03/05/2020 Inactive omeprazole 20 mg capsule,delayed release RxNorm: 816851 1 Capsule(s) Oral every evening 11/24/19 21 2020 Inactive famotidine 10 mg tablet RxNorm: 313668 1 Tablet(s) Oral every morning 11/24/19 21 2020 Inactive Alcohol Prep Pads RxNorm: 484280 USE EACH MORNING 10/14/19 21 2020 Inactive omeprazole 20 mg capsule,delayed release RxNorm: 465010 1 Capsule(s) Oral two times a day 10/13/19 21 2021 Inactive omeprazole 20 mg capsule,delayed release RxNorm: 996825 TAKE 1 CAPSULE BY MOUTH EVERY DAY 10/08/192021 Inactive Macrobid 100 mg capsule RxNorm: 009661 1 Capsule(s) Oral every 12 hours with food 10/01/202020 Inactive omeprazole 20 mg capsule,delayed release RxNorm: 603976 1 Capsule(s) Oral two times a day 09/24/20 20 2021 Inactive metformin 1,000 mg tablet RxNorm: 977777 1 Tablet(s) Oral two times a day 08/19/20 20 2020 Inactive start on September 11, 2020 metformin 500 mg tablet RxNorm: 063654 1 Tablet(s) Oral two times a day take with 500mg to equal 1000mg 08/19/20 20 2019 Inactive gabapentin 300 mg capsule RxNorm: 902685 TAKE 1 CAPSULE BY MOUTH THREE TIMES DAILY 07/11/20 20 2020 Inactive cetirizine 10 mg tablet RxNorm: 4516976 TAKE (1) TABLET BY MOUTH DAILY 07/11/20 20 2020 Inactive metformin 500 mg tablet RxNorm: 718132 1 Tablet(s) Oral two times a day 07/08/20 20 2019 Inactive loperamide 2 mg tablet RxNorm: 459862 1 Tablet(s) Oral as needed take one tablet after each loose stool, maximum of 8 tablets in 24 hours 06/24/20 20 2021 Inactive Sudafed 12 Hour 120 mg tablet,extended release RxNorm: 9990707 TAKE 1 TABLET BY MOUTH EVERY 12 HOURS NEEDED 06/11/20 20 2019 Inactive hydrochlorothiazide 25 mg tablet RxNorm: 719771 TAKE (1) TABLET BY MOUTH EVERY DAY 06/11/20 20 2019 Inactive omeprazole 20 mg capsule,delayed release RxNorm: 333552 TAKE 1 CAPSULE BY MOUTH EVERY DAY 05/14/20 20 2020 Inactive metformin 500 mg tablet RxNorm: 585652 1 Tablet(s) Oral every day 05/12/20 20 2019 Inactive True Metrix Glucose Test Strip RxNorm: 1 Test Strips Miscellaneous two times a day as needed 04/17/20 No Stop Date Active metformin 500 mg tablet RxNorm: 451391 1 Tablet(s) Oral every day 04/17/20 20 2019 Inactive diclofenac sodium 75 mg tablet,delayed release RxNorm: 722325 1 Tablet(s) PO BID 04/14/20 20 2021 Inactive This refill negates all other refills of this medication Sudafed 12 Hour 120 mg tablet,extended release RxNorm: 1406983 TAKE 1 TABLET BY MOUTH EVERY 12 HOURS NEEDED 03/14/20 20 2019 Inactive True Metrix Glucose Test Strip RxNorm: 1 Test Strips Miscellaneous every morning 03/13/20 20 2019 Inactive 100/container True Metrix Glucose Test Strip RxNorm: 1 Test Strips Miscellaneous QA 02/22/20 20 2019 Inactive 100/container loperamide 2 mg tablet RxNorm: 946232 1 Tablet(s) Oral as needed take one tablet after each loose stool, maximum of 8 tablets in 24 hours 02/22/20 20 2019 Inactive cetirizine 10 mg tablet RxNorm: 1802371 1 Tablet(s) PO daily 01/17/20 20 2019 Inactive loperamide 2 mg tablet RxNorm: 751186 1 Tablet(s) Oral as needed take one tablet after each loose stool, maximum of 8 tablets in 24 hours 01/17/20 20 2019 Inactive quetiapine 100 mg tablet RxNorm: 992509 1 Tablet(s) Oral every night at bedtime 01/17/20 20 2019 Inactive levothyroxine 50 mcg tablet RxNorm: 848153 1 Tablet(s) PO daily 01/17/20 20 2020 Inactive gabapentin 300 mg capsule RxNorm: 838697 1 Capsule(s) PO TID 01/17/20 20 2019 Inactive levothyroxine 50 mcg tablet RxNorm: 332752 1 Tablet(s) PO daily 01/15/20 20 2019 Inactive lisinopril 2.5 mg tablet RxNorm: 417558 1 Tablet(s) PO daily 01/15/20 20 2020 Inactive gabapentin 300 mg capsule RxNorm: 082080 1 Capsule(s) PO TID 01/15/20 20 2019 Inactive cetirizine 10 mg tablet RxNorm: 7993380 1 Tablet(s) PO daily 01/15/20 20 2019 Inactive Singulair 10 mg tablet RxNorm: 932070 1 Tablet(s) PO daily 01/15/20 20 2020 Inactive gentamicin 0.3 % eye drops RxNorm: 790327 1 Drop(s) ophthalmic (eye) four times a day 12/29/19 20 2019 Inactive gentamicin 0.3 % eye drops RxNorm: 351233 1 Drop(s) ophthalmic (eye) four times a day 12/29/19 20 2019 Inactive gentamicin 0.3 % eye drops RxNorm: 622677 1 Drop(s) ophthalmic (eye) four times a day 12/29/19 20 2019 Inactive hydrochlorothiazide 25 mg tablet RxNorm: 261632 1 Tablet(s) Oral every day 12/21/19 20 2019 Inactive Sudafed 12 Hour 120 mg tablet,extended release RxNorm: 1267319 TAKE (1) TABLET BY MOUTH EVERY 12 HOURS NEEDED 12/21/19 20 2019 Inactive loperamide 2 mg tablet RxNorm: 760356 1 Tablet(s) Oral as needed take one tablet after each loose stool, maximum of 8 tablets in 24 hours 12/11/19 20 2019 Inactive loperamide 2 mg tablet RxNorm: 979749 1 Tablet(s) Oral as needed take one tablet after each loose stool, maximum of 8 tablets in 24 hours 12/11/192019 Inactive atorvastatin 40 mg tablet RxNorm: 861397 1 Tablet(s) Oral every day 11/29/19 20 2020 Inactive quetiapine 100 mg tablet RxNorm: 033919 1 Tablet(s) Oral every night at bedtime 11/28/19 20 2019 Inactive sertraline 100 mg tablet RxNorm: 532397 1 Tablet(s) Oral 11/28/19 20 2019 Inactive omeprazole 20 mg capsule,delayed release RxNorm: 527261 1 Capsule(s) Oral every day 11/20/19 20 2019 Inactive amoxicillin 250 mg capsule RxNorm: 162709 1 Capsule(s) Oral three times a day 11/07/19 20 2019 Inactive multivitamin with iron-mineral tablet RxNorm: 1 Tablet(s) Oral every day 10/29/192021 Inactive cetirizine 10 mg tablet RxNorm: 6969332 1 Tablet(s) PO daily 10/20/19 20 2019 Inactive This refill negates all other refills of this medication. Please do not auto refill Singulair 10 mg tablet RxNorm: 899501 1 Tablet(s) PO daily 10/20/19 20 2019 Inactive This refill negates all other refills of this medication gabapentin 300 mg capsule RxNorm: 122055 1 Capsule(s) PO TID 10/20/19 20 2019 Inactive lisinopril 2.5 mg tablet RxNorm: 173054 1 Tablet(s) PO daily 10/20/19 20 2019 Inactive levothyroxine 50 mcg tablet RxNorm: 475213 1 Tablet(s) PO daily 10/20/19 20 2019 Inactive This refill negates all other refills of this medication fenugreek seed extract 500 mg capsule RxNorm: 1 Capsule(s) Oral three times a day 10/17/19 20 2021 Inactive hydrochlorothiazide 25 mg tablet RxNorm: 158224 1 Tablet(s) Oral every day 10/17/19 20 2019 Inactive Alcohol Prep Pads RxNorm: 030799 1 Patch TOP QAM 10/16/19 20 2020 Inactive loperamide 2 mg tablet RxNorm: 772468 1 Tablet(s) Oral as needed take one tablet after each loose stool not to exceed 8 tablets a day 09/29/20 19 2018 Inactive Calcium 600-D3 Plus (mag-zinc) 600 mg [...] 2019 Inactive hydrochlorothiazide 25 mg tablet RxNorm: 098106 1 Tablet(s) Oral every day 09/19/20 19 2019 Inactive Sudafed 12 Hour 120 mg tablet,extended release RxNorm: 6471073 1 Tablet(s) Oral every 12 hours as needed 09/11/20 19 2018 Inactive omeprazole 20 mg capsule,delayed release RxNorm: 430824 1 Capsule(s) Oral every day 09/07/20 19 2019 Inactive Sudafed 12 Hour 120 mg tablet,extended release RxNorm: 8315909 1 Tablet(s) Oral every 12 hours as needed 09/04/20 19 2018 Inactive pantoprazole 40 mg tablet,delayed release RxNorm: 950168 1 Tablet(s) Oral every day 08/24/202018 Inactive discontinue any other H2Blkr. and PPI albuterol sulfate 2.5 mg/3 mL (0.083 %) solution for nebulization RxNorm: 182690 1 Vial Inhalation every four hours as needed as needed for dyspnea 08/17/20 19 2019 Inactive 60/box. This refill negates all other refills of this medication. Please do not fill early. Please do not auto refill. Symbicort 160 mcg-4.5 mcg/actuation HFA aerosol inhaler RxNorm: 0571274 2 Puff(s) INH BID 08/17/20 19 No Stop Date Active Alcohol Prep Pads RxNorm: 221395 1 Patch TOP QAM 08/17/20 19 2019 Inactive Ventolin HFA 90 mcg/actuation aerosol inhaler RxNorm: 840017 2 Puff(s) INH QID 08/09/20 19 2019 Inactive Please do not fill early. Please do not auto refill. This refill negates all other refills of this medication True Metrix Glucose Test Strip RxNorm: 1 Test Strips Miscellaneous QAM 08/09/20 19 2019 Inactive 100/container atorvastatin 40 mg tablet RxNorm: 749906 1 Tablet(s) Oral every day 07/04/20 19 2019 Inactive levmetamfetamine 50 mg nasal inhaler RxNorm: 1 Unit(s) NASAL Q3-4H Do not use more than every 3 hours or 8 times/24hours 06/26/20 19 2021 Inactive Please do not auto refill. This refill negates all other refills of this medication buspirone 7.5 mg tablet RxNorm: 275223 1 Tablet(s) PO BID 06/26/20 19 2020 Inactive This refill negates all other refills of this medication hydrochlorothiazide 12.5 mg tablet RxNorm: 328864 1 Tablet(s) PO QAM 06/26/20 19 2019 Inactive Ventolin HFA 90 mcg/actuation aerosol inhaler RxNorm: 846025 2 Puff(s) INH QID 06/26/20 19 2018 Inactive Please do not fill early. Please do not auto refill. This refill negates all other refills of this medication Singulair 10 mg tablet RxNorm: 592958 1 Tablet(s) PO daily 06/26/20 19 2019 Inactive This refill negates all other refills of this medication cetirizine 10 mg tablet RxNorm: 9430508 1 Tablet(s) PO daily 06/26/20 19 2019 Inactive This refill negates all other refills of this medication. Please do not auto refill levothyroxine 50 mcg tablet RxNorm: 597840 1 Tablet(s) PO daily 06/26/20 19 2019 Inactive This refill negates all other refills of this medication diclofenac sodium 75 mg tablet,delayed release RxNorm: 960342 1 Tablet(s) PO BID 06/26/20 19 2019 Inactive This refill negates all other refills of this medication ranitidine 150 mg tablet RxNorm: 083357 1 Tablet(s) PO BID 06/26/20 19 2018 Inactive This refill negates all other refills of this medication Calcium 600-D3 Plus (mag-zinc) 600 mg calcium-800 unit-50 mg tablet RxNorm: 1 Tablet(s) PO daily take an additonal tablet for itching. 06/26/20 19 2018 Inactive This refill negates all other refills of this medication albuterol sulfate 2.5 mg/3 mL (0.083 %) solution for nebulization RxNorm: 717353 1 Vial INH QID 06/26/20 19 2018 Inactive 60/box. This refill negates all other refills of this medication. Please do not fill early. Please do not auto refill. lisinopril 2.5 mg tablet RxNorm: 369131 1 Tablet(s) PO daily 06/21/20 19 2019 Inactive gabapentin 300 mg capsule RxNorm: 068502 1 Capsule(s) PO TID 06/21/20 19 2019 Inactive atorvastatin 20 mg tablet RxNorm: 709581 1 Tablet(s) PO QHS 06/07/20 19 2018 Inactive This refill negates all other refills of this medication TRUEplus Lancets 30 gauge RxNorm: 1 Lancets Miscellaneous QAM 05/29/20 19 2018 Inactive 100/box gabapentin 300 mg capsule RxNorm: 771245 1 Capsule(s) PO TID 05/03/20 19 2018 Inactive Flintstones Complete (iron) 18 mg iron chewable tablet RxNorm: 1 Tablet(s) PO daily 04/04/20 19 2021 Inactive This refill negates all other refills of this medication gabapentin 300 mg capsule RxNorm: 094104 1 Capsule(s) PO TID as needed 02/01/20 19 2018 Inactive True Metrix Glucose Test Strip RxNorm: 1 Test Strips Miscellaneous QAM 02/01/20 19 2018 Inactive 100/container Alcohol Prep Pads RxNorm: 062052 1 Patch TOP QAM 02/01/20 19 2018 Inactive TRUEplus Lancets 30 gauge RxNorm: 1 Lancets Miscellaneous QAM 02/01/20 19 2018 Inactive 100/box lisinopril 2.5 mg tablet RxNorm: 464065 1 Tablet(s) PO daily 12/28/19 19 2018 Inactive ranitidine 150 mg tablet RxNorm: 245960 1 Tablet(s) PO BID 10/21/192018 Inactive This refill negates all other refills of this medication albuterol sulfate 2.5 mg/3 mL (0.083 %) solution for nebulization RxNorm: 256972 1 Vial INH QID 10/21/192018 Inactive 60/box. [...] this medication gabapentin 300 mg capsule RxNorm: 750891 1 Capsule(s) PO TID as needed 10/21/192018 Inactive atorvastatin 20 mg tablet RxNorm: 960184 1 Tablet(s) PO QHS 10/21/19 19 2018 Inactive This refill negates all other refills of this medication trazodone 50 mg tablet RxNorm: 593986 1 Tablet(s) PO QHS 10/21/19 19 2018 Inactive This refill negates all other refills of this medication Ventolin HFA 90 mcg/actuation aerosol inhaler RxNorm: 877709 2 Puff(s) INH QID 10/21/192018 Inactive Please do not fill early. Please do not auto refill. This refill negates all other refills of this medication Calcium 600-D3 Plus 600 mg calcium-800 unit-50 mg tablet RxNorm: 1 Tablet(s) PO daily take an additonal tablet for itching. 10/21/19 19 2018 Inactive This refill negates all other refills of this medication Singulair 10 mg tablet RxNorm: 586876 1 Tablet(s) PO daily 10/21/192018 Inactive This refill negates all other refills of this medication buspirone 7.5 mg tablet RxNorm: 197583 1 Tablet(s) PO BID 10/21/192018 Inactive This refill negates all other refills of this medication diclofenac sodium 75 mg tablet,delayed release RxNorm: 375854 1 Tablet(s) PO BID 10/21/192018 Inactive This refill negates all other refills of this medication hydrochlorothiazide 12.5 mg tablet RxNorm: 995790 1 Tablet(s) PO QAM 10/21/192018 Inactive metoprolol succinate ER 50 mg tablet,extended release 24 hr RxNorm: 078008 1 Tablet(s) PO daily 10/21/192018 Inactive This refill negates all other refills of this medication levothyroxine 50 mcg tablet RxNorm: 755067 1 Tablet(s) PO daily 10/21/192018 Inactive This refill negates all other refills of this medication cetirizine 10 mg tablet RxNorm: 7196769 1 Tablet(s) PO daily 10/21/192018 Inactive This refill negates all other refills of this medication. Please do not auto refill Flintstones Complete (iron) 18 mg iron chewable tablet RxNorm: 1 Tablet(s) PO daily 10/21/192018 Inactive This refill negates all other refills of this medication buspirone 7.5 mg tablet RxNorm: 396478 1 Tablet(s) PO BID 10/12/19 19 2018 Inactive cetirizine 10 mg tablet RxNorm: 1867964 1 Tablet(s) PO daily 09/28/20 18 2018 Inactive Guaiasorb DM 10 mg-100 mg/5 mL oral liquid RxNorm: 960036 10 Milliliter(s) PO As needed every 4 hr 09/24/20 18 2018 Inactive Vicks Vaporub 4.7 %-1.2 %-2.6 % topical ointment RxNorm: 8367658 1 Application TOP TID 09/24/20 18 2018 Inactive levmetamfetamine 50 mg nasal inhaler RxNorm: 1 Unit(s) NASAL Q3-4H 09/24/20 18 2017 Inactive sertraline 50 mg tablet RxNorm: 392437 1 Tablet(s) PO daily 09/09/20 18 2018 Inactive Please note dose trazodone 50 mg tablet RxNorm: 830225 1 Tablet(s) PO QHS 09/06/20 18 2018 Inactive sertraline 50 mg tablet RxNorm: 376726 1 Tablet(s) PO daily 09/06/20 18 2017 Inactive amoxicillin 500 mg tablet RxNorm: 651943 1 Tablet(s) PO Q12H 08/31/20 18 2017 Inactive albuterol sulfate 2.5 mg/3 mL (0.083 %) solution for nebulization RxNorm: 228267 1 Vial INH QID 08/10/20 18 2018 Inactive 60/box. Please do not fill early. Please do not auto refill. Prozac 10 mg capsule RxNorm: 183384 1 Capsule(s) PO daily 08/09/20 18 2017 Inactive buspirone 7.5 mg tablet RxNorm: 999104 1 Tablet(s) PO BID 08/09/20 18 2018 Inactive gabapentin 300 mg capsule RxNorm: 567510 1 Capsule(s) PO TID as needed 08/01/20 18 2018 Inactive hydrochlorothiazide 12.5 mg tablet RxNorm: 174179 1 Tablet(s) PO QAM 08/01/20 18 2018 Inactive ranitidine 150 mg tablet RxNorm: 059862 1 Tablet(s) PO BID 08/01/20 18 2018 Inactive Macrobid 100 mg capsule RxNorm: 083740 1 Capsule(s) PO Q12H 06/21/20 18 2017 Inactive Singulair 10 mg tablet RxNorm: 431882 1 Tablet(s) PO daily 06/14/20 18 2018 Inactive Ventolin HFA 90 mcg/actuation aerosol inhaler RxNorm: 7221221 2 Puff(s) INH QID 06/14/20 18 2018 Inactive Singulair 10 mg tablet RxNorm: 922751 1 Tablet(s) PO daily 06/14/20 18 2017 Inactive buspirone 7.5 mg tablet RxNorm: 112065 1 Tablet(s) PO BID 06/14/20 18 2017 Inactive Prozac 10 mg capsule RxNorm: 814478 1 Capsule(s) PO daily 06/14/20 18 2017 Inactive Neilmed Pediatric Sinus Rinse Refill packet RxNorm: 1 Unit Dose NASAL PRN 05/31/20 18 2021 Inactive diclofenac sodium 75 mg tablet,delayed release RxNorm: 270912 1 Tablet(s) PO BID 05/31/20 18 2017 Inactive lisinopril 2.5 mg tablet RxNorm: 745357 1 Tablet(s) PO daily 05/31/20 18 2017 Inactive metoprolol succinate ER 50 mg tablet,extended release 24 hr RxNorm: 681318 1 Tablet(s) PO daily 05/31/20 18 2017 Inactive levothyroxine 50 mcg tablet RxNorm: 398186 1 Tablet(s) PO daily 05/31/20 18 2017 Inactive TRUEplus Lancets 30 gauge RxNorm: 1 Lancets Miscellaneous QAM 05/31/20 18 2017 Inactive 100/box Ventolin HFA 90 mcg/actuation aerosol inhaler RxNorm: 501164 2 Puff(s) INH QID 05/31/20 18 2017 Inactive Aleve 220 mg capsule RxNorm: 3960129 1 Capsule(s) PO BID 05/31/20 18 2018 Inactive ranitidine 150 mg tablet RxNorm: 168610 1 Tablet(s) PO BID 05/31/20 18 2017 Inactive gabapentin 300 mg capsule RxNorm: 112862 1 Capsule(s) PO TID as needed 05/31/20 18 2017 Inactive atorvastatin 20 mg tablet RxNorm: 737470 1 Tablet(s) PO QHS 05/31/20 18 2017 Inactive True Metrix Glucose Test Strip RxNorm: 1 Test Strips Miscellaneous [facility] 05/31/20 18 2017 Inactive 50/container Calcium 600-D3 Plus 600 mg calcium-800 unit-50 mg tablet RxNorm: 1 Tablet(s) PO daily take an additonal tablet for itching. 05/31/20 18 2017 Inactive hydrochlorothiazide 12.5 mg tablet RxNorm: 259414 1 Tablet(s) PO QAM 05/31/20 18 2017 Inactive Flintstones Complete (iron) 18 mg iron chewable tablet RxNorm: 1 Tablet(s) PO daily 05/31/20 18 2017 Inactive d-mannose oral powder RxNorm: PO 18 2021 Inactive True Metrix Glucose Meter RxNorm: miscellaneous 08/17/20 19 2018 Inactive sertraline 50 mg tablet RxNorm: 909651 1 Tablet(s) PO daily 11/28/19 20 2019 Inactive loperamide 2 mg tablet RxNorm: 768046 oral 09/29/20 19 2018 Inactive Symbicort 160 mcg-4.5 mcg/actuation HFA aerosol inhaler RxNorm: 4094195 2 Puff(s) INH BID 08/17/20 19 2018 Inactive Medication Administered No Medication Administered data Procedures Procedure Codes Date Frailty Screening CPT-4: SFD 05/20/2021 Frailty Screening Are you fatigued?/No (0), Can you walk one block?/Yes (0), Can you walk up one flight of stairs?/Yes (0), Do you have more than 5 chronic illnesses?/Yes (1), Have you lost more than 5% body weight in6 months?/No (0), Frailty Point Total:/Score 1=pre frailCPT-4: ULGPposzch72/18/2021HypertensionCPT-4: HTN 04/01/2021Tobacco Assessment/ScreeningCPT-4: TCA03/13/2021atient Health QuestionnaireCPT-4: DPHQ03/13/2021Mini Mental State ExamCPT-4: DMMA01/29/2021 Annual Wellness Visit (Subsequent Visit)CPT-4: [id number] Care PlanningCPT-4: VACP01/13/2021Fall Risk AssessmentSNOMED CT: [id number] CPT-4: DFRA01/13/2021emmes Fany AssessmentCPT-4: DSWA12/17/2020Urinalysis, dip stickCPT-4: 768148409/24/2020Patient Health QuestionnaireCPT-4: DPHQ 08/19/2020ElectrocardiogramCPT-4: 0489436Tobacco Assessment/Screening CPT-4: 01/01/2020Fall Risk AssessmentSNOMED CT: 815862996 CPT-4: DFRA01/01/2020Functional AssessmentCPT-4: DFA01/01/2020[place] Fany AssessmentCPT-4: DSWA11/28/2019Patient Health QuestionnaireCPT-4: DPHQ11/28/2019 [place] AssessmentCPT-4: DSWA10/17/2019HypertensionCPT-4: HTN10/17/[address]: [id number] CPT-4: DFRA09/19/2019Functional AssessmentCPT-4: DFA111/20/2018Urinalysis, dip stickCPT-4: 278874506/21/2019Tobacco Assessment/ScreeningCPT-4: TCA05/24/2019 Patient Health QuestionnaireCPT-4: DPHQ05/24/2019AHA/REBECCA Classification AssessmentCPT-4: DAHA04/25/2019Controlled Substance ReportCPT-4: CTRSU04/25/2019 Urinalysis, dip stickCPT-4: 143867903/28/2019Urinalysis, dip stickCPT-4: 81627 03/28/20197540W1K-ButdlnjsbntzoihNOR-8: 87533AmhziqfH4C-CtnrtxmiilffgynTNE-1: 61853 BendzseR1G-ThqjcsyecsylefeEGV-8: 89322ZhembxtF0V-FxblzwjkozokqalDEU-6: 40075 OazphaoQ3H-RifvimshiallsrfINA-9: 22039RssnuwfG4E-BcagxaowzilkgyxCGF-5: 22062 WxodcbfI9E-FhxvkpnvqckminwKFP-9: 15520YjjyecmHccdgjidqh ReferralSNOMED CT: 365142080 CPT-4: F05Blktdyq Reason For Visit Reason For Visit Effective Dates Notes diabetes mellitus 05/20/2021 hyperlipidemia disease 05/20/2021 Interim health update 05/20/2021 dizziness 05/20/2021 Encounters Encounter Performer Location Location Address Codes Magdi e ([id number]) (EST PT) [facility] [place] [facility]USED [employer]LEHE[facility] VISIT Diagnosis: Syncope and collapse[ICD10: R55] Diagnosis: Type 2 diabetes mellitus with peripheral neuropathy[ICD10: E11.42] Diagnosis: Family history of seizures[ICD10: Z84.89] Diagnosis: Hypertensive heart disease with heart failure[ICD10: I11.0] Diagnosis: Chronic kidney disease, stage 2 (mild)[ICD10: N18.2]Chivo Tejada [address] [place] [address] 68066NXQ-9: [id number] Plan of Care Planned Activity Notes Codes Status Date Visit Plan: R55-780.2 Syncope an d collapse Z84.89-V19.8 Family history of seizures remains a concern over the past month, can't confirm, but feels she is having seizure activity, does have family hx of seizures discussed possible causes otherthan seizure such as stress, cardiac, diabetes mellitus labs to be drawn at [facility] referred to neurology previously - has upcoming visit 05/24/21 advised to notify office for persistent or worsening symptoms F43.23-309.28 Adjustment disorder with mixed anxiety and depressed mood discussedstress management routine follow up [facility] at [facility] 03/13/2021 PHQ 9 Score 4 Sertraline 200mg daily 04/01/2021 Functional Assessment independent with ADLs R63.0-783.0 Anorexia symptoms persistentadvised to continue to try small, more frequent food intake, discussed limiting carbonated beverages as this may make her feel full taking away appetite discussed benefits of [place] Instant Breakfast not using note weight has remained stable over the past couple months-will continue to monitorlabs performed recently at [facility]- results requested 05/20/21 E11.42-250.60 Type 2 diabetes mellitus with peripheral neuropathy ranging 114-230 encouraged to monitor diet for changes based on blood sugar has been eating more fruits lately-discussed impact of fruit and simple carbs on blood sugars encouraged plant based diet, Metformin 1000mg BID - elevated liver enzymes noted with last labs, will check labs at next home visit, may need to make adjustments to this medication received new monitor Ubit[employer]nicole through [employer]-participant of [place] on demand - 01/29/2021 Hgb A1C 5.3 10/17/2019Semcyril Soares 04/11-instructed on good daily foot care routine follow up with Dr. Gonzales, podiatry-diabetic shoes- next appt 03/30/2021-had steroid injection in left heel, last appt was April 2021 opht halmology confirms visit, but doesn't remember when 01/01/2020 [...] have improved, urinating ~ 5 times per day- K21.9- 530.81 GERD (gastroesophageal reflux disease) continue famotidine 10mg qam and omeprazole 20mg -improved advised to limit late evening eating, avoid fried, greasy foods, and carbonated beverages G47.33-327.23 Obstructive sleep apnea (adult) (pediatric) J45.909-493.90 Asthma Cpap-not consistently wearing thinking mask doesn't fit properly continue inhalers nebulizer routine f/u Dr. Garcia, pulmonology -need to schedule appt E03.9-244.9 Hypothyroidism, unspecified cont levothyroxine will order labs to be drawn at [facility] E78.5-272.4 Hyperlipidemia, unspecified 01/29/2021 alkaline phos 228 AST 40 ALT 157 plan d/c atorvastatin and recheck labs at next home visit, may need to start another medication for ongoing hyperlipidemia avoid high fat, fried foods discussed benefits of increased lnseyscxG99.46-788.33 Mixed incontinence use of incontinence supplies R55-780.2 Syncope and collapse deniesany recent episodes advise to check BS when feeling light headed Z00.01-V70.0 (Z00.01-V70.0) Encount er for general adult medical examination with abnormal [...] new appt for pap in June 2020-[employer] [facility]-reports pap negative-records requested Z01.89-V72.85 Encounter for screening for tobacco use 03/13/2021 Tobacco screen complete- patient denies ever smoking Z12.31-V76.12 (Z12.31-V76.12) Encounter for screening mammogram for malignant neoplasm of breast Z12.11-V76.51(Z12.11- V76.51) Encounter for screening for malignant neoplasm of colon Preventative testing not indicated due to age *I reviewed the most recent CDC guidelines regarding Covid-19/Coronavirus with the patient/caregiver/designee 05/20/2021atient Education: Patient Medication KffpdfsVgbilfmic17/18/2021 Patient Education: LjklkhkzRqvsizdxm45/18/2021atient Education: Dizziness Mbkolactn08/18/2021ppointment: Anna Culver WPtel: [phone] [address] USETV04/28/2021ppointment: Chivo Bishop WPtel: [phone] [place] [address] USETV04/15/2021ppointment: Anna Culver WPtel: [phone] [place] [address] [id number]: Anna Culver WPtel: [address] [place] [address] USETV03/24/2021ppointment: Anna Culver WPtel: [address] [place] [address] USETV03/13/2021ppointment: Anna Culver WPtel: [address] [place] [address] [id number]: Chivo Bishop WPtel: [phone] [place] [address] [id number]: Anna Culver WPtel: [phone] [place] [address] USETV01/13/2021ppointment: Anna Culver WPtel: [phone] [place] [address] [id number]: Chivo Bishop WPtel: [phone] [place] [address] USETV11/28/2020ppointment: Anna Culver WPtel: [phone] [facility] [address] [place] [address] USETV02ppointment: Anna Culver WPtel: [phone] [place] [address] [address] [place] [address] [id number]/ppointment: Anna Culver WPtel: [phone] [place] [address] [address] [place] [address] DYZ6990711/25/2019Appointment: Anna Culver WPtel: [phone] [place] [address] [address] [place] [address] USETV110/26/2019Appointment: Anna Culver WPtel: [phone] [place] [address] [address] [place] [address] USETV110/19/2019Appointment: Anna Culver WPtel: [address] [place] [address] USETV1Appointment: Anna Culver WPtel: [phone] [place] [address] USETV1Appointment: Gianna Birmingham MCt: [facility] [address] [id number]: Anna Culver WPtel: [phone] [place] [address] [place] [address] [id number]: Anna Culver WPtel: [phone] [place] [address] [place] [address] EKV10883/09/2020Appointment: Anna Culver WPtel: [phone] [place] [address] [address] [place] [address] [id number]: Anna Culver WPtel: [phone] [place] [address] [place] [address] [id number]: Anna Culver WPtel: [phone] [place] [address] [id number]: Anna Culver WPtel: [phone] [place] [address] [id number]: Anna Culver WPtel: [phone] [place] [address] [id number]: Anna Culver WPtel: [phone] [place] [address] [id number]: Anna Culver WPtel: [address] [place] [address] [id number]: Anna Culver WPtel: [address] [place] [address] [id number]: Sudha Hernadez WPtel: [address] [facility] [address] [id number]: Sudha Hernadez WPtel: [address] [facility] Ho[place]ylCT[address] [id number]: SandipCharlene WPtel: [address] [facility] [address] [id number]: Enedelia Delgado45Appointment: Charlene Oropeza WPtel: [address] [facility] [address] [id number]: Rasta Palafox WPtel: [address] [facility] [id number]: Rasta Palafox WPtel: [address] [facility] [address] [id number]: Rasta Palafox WPtel: [address] [facility] [address] [id number]: Rasta Palafox WPtel: [address] [facility] [address] [id number]: Pending Gynecology Referral InformationReferral ProcessedReferral: Pending Pulmonology Referral InformationReferralProcessed Referral: Pending Psychiatry Referral InformationReferralInitiatedReferral: Pending Respiratory Services Referral InformationReferralInitiatedReferral: Pending Ophthalmology Referral InformationReferralInitiatedReferral: [facility] WPtel: [address] [place] [address] [address] [address] USWriter placed a call out to the patient to notify her that it has been recommended that she be seenby 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 Patient agreed to be seen, does not have a provider of choice and no transportationissues. Esol Instructor faxed referral and clinical notes to [facility] in [place], [place] near the patient's home. Patient to [...] seen and prefers a provider in the [place] or [place] area. Esol Instructor placed a call out to everyone listed in the area and the only location that was able to accept the patient's insurance was [place] [address] [place] [address] and spoke with Maylin. Maylin asked that the patient's referral, face sheet and visit notes be faxed to . Esol Instructor faxed over requested documents. Patient appointment confirmation letter generated and mailed to her home address. Patient to call to schedule an appointment.ProcessedReferral: [facility] WPtel: [address] [id number] USPatient notified that it has been advised that she be seen by Neurology. Patient agreed to be seen and prefers to be seen by a provider in the [place], [place] area. Patient denies any concerns with transportation, and prefers to schedule her own appointment. Esol Instructor placed a call out to [facility] and spoke with Neeraj [...] Date Assessment and plan reviewed with patient ? . R55-780.2 Syncope and collapse; Z84.89-V19.8 Family history of seizures remains a concern over the past month, can't confirm, but feels she is having seizure activity, does have family hx of seizures discussed possible causes other than seizure such as stress, cardiac, diabetes mellitus labs to be drawn at [facility] referred to neurology previously - has upcoming visit 05/24/21 advised to notify office for persistent or worsening symptoms F43.23-309.28 Adjustment disorder with mixed anxiety and depressed mood discussed stress management routine follow up Marcy at [facility] 03/13/2021 PHQ 9 Score 4 Sertraline 200mg daily 04/01/2021 Functional Assessment independent with ADLs R63.0-783.0 Anorexia symptoms persistent advised to continue to try small, more frequent food intake, discussed limiting carbonated beverages as this may make her feel full taking away appetite discussed benefits of [place] Instant Breakfast not using note weight has remained stable over the past couple months-will continue to monitor labs performed recently at [facility]- results requested 05/20/21 E11.42-250.60 Type 2 diabetes mellitus with peripheral neuropathy ranging 114-230 encouraged to monitor diet for changes based on blood sugar has been eating more fruits lately-discussed impact of fruit and simple carbs on blood sugars encouraged plant based diet, Metformin 1000mg BID - elevated liver enzymes noted with last labs, will check labs at next home visit, may need to make adjustments to this medication received new monitor Alexel through [employer]-participant of [place] on demand - 01/29/2021 Hgb A1C 5.3 10/17/2019 Inocente Soares 7/10-instructed on good daily foot care routine follow up with Dr. Gonzales, podiatry-diabetic shoes- next appt 03/30/2021- had steroid injection in left heel, last appt was April 2021 ophthalmology confirms visit, but doesn't [...] have improved, urinating ~ 5 times per day- K21.9-530.81 GERD (gastroesophageal reflux disease) continue famotidine 10mg qam and omeprazole 20mg -improved advised to limit late evening eating, avoid fried, greasy foods, and carbonated beverages G47.33-327.23 Obstructive sleep apnea (adult) (pediatric); J45.909-493.90 Asthma Cpap-not consistently wearing thinking mask doesn't fit properly continue inhalers nebulizer routine f/u Dr. Garcia, pulmonology -need to schedule appt E03.9-244.9 Hypothyroidism, unspecified cont levothyroxine will order labs to be drawn at [facility] E78.5-272.4 Hyperlipidemia, unspecified 01/29/2021 alkaline phos 228; AST 40; ALT 157 plan d/c atorvastatin and recheck labs at next home visit, may need to start another medication forongoing hyperlipidemia avoid high fat, fried foods discussed benefits of increased activity N39.46-788.33 Mixed incontinence use of incontinence supplies R55-780.2 Syncope and collapse denies any recent episodes advise to check BS when feeling light headed Z00.01-V70.0 (Z00.01-V70.0) Encounter for general adult medical [...] new appt for pap in June 2020-[employer] [facility]-reports pap negative-recordsrequested Z01.89-V72.85 Encounter for screening for tobacco use 03/13/2021 Tobacco screen complete-patient denies ever smoking Z12.31-V76.12 (Z12.31-V76.12) Encounter for screening mammogram for malignant neoplasm of breast Z12.11-V76.51 (Z12.11-V76.51) Encounter for screening for malignant neoplasm of colon Preventative testing not indicated due to age *I reviewed the most recent CDC guidelines regarding Covid-19/Coronavirus with the patient/caregiver/designee 05/20/2021 Medical Equipment No Medical Equipment data Advance Directives No Advance Directive data
--- OUTSIDE RECORDS SUMMARY | 2021-06-10 20:00 | XMS_ITS | CCD ---
Author Name Chivo Bishop NP Address [address] [place] [address] Phone Organization [facility] Phone Care Team Providers Care Winterizer Name Role Phone Palomo KING, Anna Primary Care Provider Unav ailable Unavailable Chronic Care Management Unavaila ble Summary Purpose DataExchange Insurance Providers Payer name Policy type / Coverage type Covered green party ID Effective Begin Date Effective End Date SUKI MAYO [id number] Unknown Unknown Family history Mother Diagnosis Age [...] 05/31/2018 Education level Unknown Some High School 10th05/31/20185901HdkicfepmqBazwupoGwmgxxrmoc42/29/2018Tobacco historySNOMED CT: 126038520Lkb never smoked or chewed [id number]/31/2018Alcohol historySNOMED CT: 702689724Mlxye drinks [id number]/31/2018Has the patient ever used illegal drugs? UnknownHas never used illegal drugs05/31/2018DNR Order/ Advanced Directive UnknownFull Code05/31/2018 Allergies, Adverse Reactions, Alerts Substance Reaction Codes Entered Date Inactivated Date Status OxyContin itch, RxNorm: 728075 01/13/2021 No Inactive Da te Active *No known food allergies Rssqpbe8909/06/2018No Inactive DateActiveMethylprednisolonehivesRxNorm: 6902 09/06/2018No Inactive DateActive Problems Condition Codes Effective Dates Condition St atus Adjustment disorder with mixed anxiety a nd depressed mood ICD-10: F43.23 ICD-9: 309.2812/01/2018ActiveCOVID-19 virus RNA test result positive at limit of detectionICD-10: U07.1 ICD-9: 079.8909/1ActiveGERD (gastroesophageal reflux disease)ICD-10: K21.9 ICD-9: 530.8112ActiveType 2 diabetes mellitus with peripheral neuropathy ICD-10: E11.42 ICD-9: 250.6002/ActiveUpper respiratory infectionICD-10: J06.9 ICD-9: 465.908/ctiveChronic kidney disease, stage 2 (mild)ICD-10: N18.2 ICD-9: 585.201ctiveFamily history of seizuresICD-10: Z84.89 ICD-9: V19.807/ctiveHypertensive heart disease with heart failureICD-10: I11.0 ICD-9: 402.9107/ActiveSyncope and collapseICD-10: R55 ICD-9: 780.203ActiveAnorexiaICD-10: R63.0 ICD-9: 783.003/1ActivePost-traumatic stress disorder, unspecifiedICD-10: F43.10 ICD-9: 309.8112/01/2018ActiveBlisterICD-10: T14.8XXA ICD-9: 919.206/1ActiveObstructive sleep apnea (adult) (pediatric)ICD-10: G47.33 ICD-9: 327.2309/ActiveEncounter for screening for tobacco useICD-10: Z01.89 ICD-9: V72.8503ActiveElevated liver enzymesICD-10: R74.8 ICD-9: 790.504/ctiveHyperlipidemia, unspecifiedICD-10: E78.5 ICD-9: 272.408/ActiveHistory of bladder surgeryICD-10: Z98.890 ICD-9: V45.8904/ctiveUrinary retention with incomplete bladder emptying ICD-10: R33.9 ICD-9: 788.2104/ctive(Z00.01-V70.0) Encounter for general adult medical examination with abnormal findingsICD-10: Z00.01 ICD-9: V70.004/ctive(Z13.31-V79.0) Encounter for screening for depressionICD-10: Z13.31 ICD-9: V79.004/ctiveEncounter for immunizationICD-10: Z23 ICD-9: V04.8109/06/2020InactiveEssential (primary) hypertensionICD-10: I10 ICD-9: 401.901InactiveApnea, not elsewhere classifiedICD-10: R06.81 ICD-9: 786.0305InactiveChest pain, unspecifiedICD-10: R07.9 ICD-9: 786.5002/InactiveChronic kidney disease, unspecifiedICD-10: N18.9 ICD-9: 585.909/InactiveDiarrheaICD-10: R19.7 ICD-9: 787.9112/InactiveEncounter for immunizationICD-10: Z23 ICD-9: V03.907/InactiveEncounter for preprocedural cardiovascular examinationICD-10: Z01.810 ICD-9: V72.8106/InactiveHeadacheICD-10: R51 ICD-9: 784.001/10/2018InactiveOther long-term (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ICD-10: Z79.899 ICD-9: V58.6907/InactiveType 2 diabetes mellitus without complications ICD-10: E11.9 ICD-9: 250.0001/10/2018InactiveWheezingICD-10: R06.2 ICD-9: 786.0711InactiveAbnormal urine findingICD-10: R82.90 ICD-9: 791.912/ResolvedAbrasion of toeICD-10: S90.416A ICD-9: 917.005ResolvedPink eyeICD-10: H10.029 ICD-9: 372.0303/ResolvedRight wrist painICD-10: M25.531 ICD-9: 719.4308/09/2020ResolvedSinusitisICD-10: J32.9 ICD-9: 473.902ResolvedSuperficial burn of multiple sites of right hand, subsequent encounterICD-10: T23.191D ICD-9: V58.8902/1ResolvedUrinary tract infectionICD-10: N39.0 ICD-9: 599.012/ResolvedPolyneuropathy, unspecifiedICD-10: G62.9 ICD-9: 356.9005/30/2018ActiveEncounter for screening, unspecifiedICD-10: Z13.9 ICD-9: V82.9111/06/2017Active(Z12.4-V76.2) Encounter for screening for malignant neoplasm of cervixICD-10: Z12.4 ICD-9: V76.207/ActiveHypothyroidism, unspecifiedICD-10: E03.9 ICD-9: 244.912Active(Z12.11-V76.51) Encounter for screening for malignant neoplasm of colonICD-10: Z12.11 ICD-9: V76.5107/Active(Z12.31-V76.12) Encounter for screening mammogram for malignant neoplasm of breastICD-10: Z12.31 ICD-9: V76.1207/ActiveAdult BMI 50.0-59.9 kg/sq mICD-10: Z68.43 ICD-9: V85.4308/ActiveFecal incontinenceICD-10: R15.9 ICD-9: 787.6003/ActiveMixed incontinenceICD-10: N39.46 ICD-9: 788.3308ActiveAsthmaICD-10: J45.909 ICD-9: 493.9011ActivePatient Not SeenICD-10: UXZ.01 ICD-9: XZ0.107ActiveDyspnea, unspecifiedICD-10: R06.00 ICD-9: 786.0902/08/2019ActiveAbnormal electrocardiogram [ECG] [EKG]ICD-10: R94.31 ICD-9: 794.31005/30/2018ActiveEdema, unspecifiedICD-10: R60.9 ICD-9: 782.310ActiveLong term (current) use of non-steroidal anti- inflammatories (NSAID)ICD-10: Z79.1 ICD-9: V58.6409Active Medications Medication Codes Instructions Start Date Stop Date Status Fill Instructions ondansetron 4 mg disintegrating tablet RxNorm: 103624 1 Tablet(s) Oral two times a day 06/10/20 21 2020 Inactive Sudafed 12 Hour 120 mg tablet,extended release RxNorm: 4576907 TAKE 1 TABLET BY MOUTH EVERY 12 HOURS NEEDED 06/01/20 21 2021 Inactive Heartburn Relief (famotidine) 10 mg tablet RxNorm: 227898 Take 1 Tablet(s) Oral every morning 05/07/20 21 2020 Inactive omeprazole 20 mg capsule,delayed release RxNorm: 505829 1 Capsule(s) Oral every evening 04/03/20 21 2020 Inactive sertraline 100 mg tablet RxNorm: 757911 2 Tablet(s) Oral every day 03/13/20 21 2020 Inactive levothyroxine 50 mcg tablet RxNorm: 635348 TAKE (1) TABLET BY MOUTH DAILY 02/04/20 21 2020 Inactive metformin 500 mg tablet RxNorm: 367523 1 Tablet(s) Oral two times a day take with 500mg to equal 1000mg 01/14/20 21 2020 Inactive gabapentin 300 mg capsule RxNorm: 435456 TAKE 1 CAPSULE BY MOUTH THREE TIMES A DAY 01/14/20 21 2020 Inactive lisinopril 2.5 mg tablet RxNorm: 322823 TAKE 1 TABLET BY MOUTH DAILY 01/06/20 21 2020 Inactive gabapentin 300 mg capsule RxNorm: 319384 TAKE 1 CAPSULE BY MOUTH THREE TIMES A DAY 01/06/20 21 2020 Inactive Singulair 10 mg tablet RxNorm: 545067 TAKE (1) TABLET BY MOUTH DAILY 01/06/20 21 2020 Inactive metformin 1,000 mg tablet RxNorm: 801468 1 Tablet(s) Oral two times a day 01/06/20 21 2020 Inactive atorvastatin 40 mg tablet RxNorm: 843386 1 Tablet(s) Oral every day 12/06/19 21 2020 Inactive omeprazole 20 mg capsule,delayed release RxNorm: 634618 1 Capsule(s) Oral every evening 11/24/19 21 2020 Inactive famotidine 10 mg tablet RxNorm: 178596 1 Tablet(s) Oral every morning 11/24/19 21 2020 Inactive Alcohol Prep Pads RxNorm: 620410 USE EACH MORNING 10/14/19 21 2020 Inactive omeprazole 20 mg capsule,delayed release RxNorm: 956616 1 Capsule(s) Oral two times a day 10/13/19 21 2021 Inactive omeprazole 20 mg capsule,delayed release RxNorm: 913947 TAKE 1 CAPSULE BY MOUTH EVERY DAY 10/08/19 21 2021 Inactive Macrobid 100 mg capsule RxNorm: 806049 1 Capsule(s) Oral every 12 hours with food 10/01/20 20 2020 Inactive omeprazole 20 mg capsule,delayed release RxNorm: 562002 1 Capsule(s) Oral two times a day 09/24/20 20 2021 Inactive metformin 1,000 mg tablet RxNorm: 668035 1 Tablet(s) Oral two times a day 08/19/20 20 2020 Inactive start on September 11, 2020 metformin 500 mg tablet RxNorm: 062963 1 Tablet(s) Oral two times a day take with 500mg to equal 1000mg 08/19/20 20 2019 Inactive gabapentin 300 mg capsule RxNorm: 985841 TAKE 1 CAPSULE BY MOUTH THREE TIMES DAILY 07/11/20 20 2020 Inactive cetirizine 10 mg tablet RxNorm: 0981776 TAKE (1) TABLET BY MOUTH DAILY 07/11/20 20 2020 Inactive metformin 500 mg tablet RxNorm: 110141 1 Tablet(s) Oral two times a day 07/08/20 20 2019 Inactive loperamide 2 mg tablet RxNorm: 204672 1 Tablet(s) Oral as needed take one tablet after each loose stool, maximum of 8 tablets in 24 hours 06/24/20 20 2021 Inactive Sudafed 12 Hour 120 mg tablet,extended release RxNorm: 1595899 TAKE 1 TABLET BY MOUTH EVERY 12 HOURS NEEDED 06/11/20 20 2019 Inactive hydrochlorothiazide 25 mg tablet RxNorm: 572073 TAKE (1) TABLET BY MOUTH EVERY DAY 06/11/20 20 2019 Inactive omeprazole 20 mg capsule,delayed release RxNorm: 374935 TAKE 1 CAPSULE BY MOUTH EVERY DAY 05/14/20 20 2020 Inactive metformin 500 mg tablet RxNorm: 821028 1 Tablet(s) Oral every day 05/12/20 20 2019 Inactive True Metrix Glucose Test Strip RxNorm: 1 Test Strips Miscellaneous two times a day as needed 04/17/20 No Stop Date Active metformin 500 mg tablet RxNorm: 764590 1 Tablet(s) Oral every day 04/17/20 20 2019 Inactive diclofenac sodium 75 mg tablet,delayed release RxNorm: 105963 1 Tablet(s) PO BID 04/14/20 20 2021 Inactive This refill negates all other refills of this medication Sudafed 12 Hour 120 mg tablet,extended release RxNorm: 9625937 TAKE 1 TABLET BY MOUTH EVERY 12 HOURS NEEDED 03/14/20 20 2019 Inactive True Metrix Glucose Test Strip RxNorm: 1 Test Strips Miscellaneous every morning 03/13/20 20 2019 Inactive 100/container True Metrix Glucose Test Strip RxNorm: 1 Test Strips Miscellaneous QA 02/22/20 20 2019 Inactive 100/container loperamide 2 mg tablet RxNorm: 573558 1 Tablet(s) Oral as needed take one tablet after each loose stool, maximum of 8 tablets in 24 hours 02/22/20 20 2019 Inactive cetirizine 10 mg tablet RxNorm: 4278800 1 Tablet(s) PO daily 01/17/20 20 2019 Inactive loperamide 2 mg tablet RxNorm: 834591 1 Tablet(s) Oral as needed take one tablet after each loose stool, maximum of 8 tablets in 24 hours 01/17/20 20 2019 Inactive quetiapine 100 mg tablet RxNorm: 200247 1 Tablet(s) Oral every night at bedtime 01/17/20 20 2019 Inactive levothyroxine 50 mcg tablet RxNorm: 226818 1 Tablet(s) PO daily 01/17/20 20 2020 Inactive gabapentin 300 mg capsule RxNorm: 265086 1 Capsule(s) PO TID 01/17/20 20 2019 Inactive levothyroxine 50 mcg tablet RxNorm: 210268 1 Tablet(s) PO daily 01/15/20 20 2019 Inactive lisinopril 2.5 mg tablet RxNorm: 337462 1 Tablet(s) PO daily 01/15/20 20 2020 Inactive gabapentin 300 mg capsule RxNorm: 861683 1 Capsule(s) PO TID 01/15/20 20 2019 Inactive cetirizine 10 mg tablet RxNorm: 2076168 1 Tablet(s) PO daily 01/15/20 20 2019 Inactive Singulair 10 mg tablet RxNorm: 246824 1 Tablet(s) PO daily 01/15/20 20 2020 Inactive gentamicin 0.3 % eye drops RxNorm: 971030 1 Drop(s) ophthalmic (eye) four times a day 12/29/19 20 2019 Inactive gentamicin 0.3 % eye drops RxNorm: 907663 1 Drop(s) ophthalmic (eye) four times a day 12/29/19 20 2019 Inactive gentamicin 0.3 % eye drops RxNorm: 247332 1 Drop(s) ophthalmic (eye) four times a day 12/29/19 20 2019 Inactive hydrochlorothiazide 25 mg tablet RxNorm: 341007 1 Tablet(s) Oral every day 12/21/19 20 2019 Inactive Sudafed 12 Hour 120 mg tablet,extended release RxNorm: 3443815 TAKE (1) TABLET BY MOUTH EVERY 12 HOURS NEEDED 12/21/19 20 2019 Inactive loperamide 2 mg tablet RxNorm: 717700 1 Tablet(s) Oral as needed take one tablet after each loose stool, maximum of 8 tablets in 24 hours 12/11/19 20 2019 Inactive loperamide 2 mg tablet RxNorm: 986421 1 Tablet(s) Oral as needed take one tablet after each loose stool, maximum of 8 tablets in 24 hours 12/11/19 20 2019 Inactive atorvastatin 40 mg tablet RxNorm: 537102 1 Tablet(s) Oral every day 11/29/19 20 2020 Inactive quetiapine 100 mg tablet RxNorm: 584632 1 Tablet(s) Oral every night at bedtime 11/28/19 20 2019 Inactive sertraline 100 mg tablet RxNorm: 115253 1 Tablet(s) Oral 11/28/19 20 2019 Inactive omeprazole 20 mg capsule,delayed release RxNorm: 899382 1 Capsule(s) Oral every day 11/20/19 20 2019 Inactive amoxicillin 250 mg capsule RxNorm: 098728 1 Capsule(s) Oral three times a day 11/07/19 20 2019 Inactive multivitamin with iron-mineral tablet RxNorm: 1 Tablet(s) Oral every day 10/29/19 20 2021 Inactive cetirizine 10 mg tablet RxNorm: 7768253 1 Tablet(s) PO daily 10/20/19 20 2019 Inactive This refill negates all other refills of this medication. Please do not auto refill Singulair 10 mg tablet RxNorm: 420423 1 Tablet(s) PO daily 10/20/19 20 2019 Inactive This refill negates all other refills of this medication gabapentin 300 mg capsule RxNorm: 259412 1 Capsule(s) PO TID 10/20/19 20 2019 Inactive lisinopril 2.5 mg tablet RxNorm: 176385 1 Tablet(s) PO daily 10/20/19 20 2019 Inactive levothyroxine 50 mcg tablet RxNorm: 539586 1 Tablet(s) PO daily 10/20/19 20 2019 Inactive This refill negates all other refills of this medication fenugreek seed extract 500 mg capsule RxNorm: 1 Capsule(s) Oral three times a day 10/17/19 20 2021 Inactive hydrochlorothiazide 25 mg tablet RxNorm: 231215 1 Tablet(s) Oral every day 10/17/19 20 2019 Inactive Alcohol Prep Pads RxNorm: 943641 1 Patch TOP QAM 10/16/19 20 2020 Inactive loperamide 2 mg tablet RxNorm: 852825 1 Tablet(s) Oral as needed take one [...] 2019 Inactive hydrochlorothiazide 25 mg tablet RxNorm: 783052 1 Tablet(s) Oral every day 09/19/202019 Inactive Sudafed 12 Hour 120 mg tablet,extended release RxNorm: 8227941 1 Tablet(s) Oral every 12 hours as needed 09/11/20 19 2018 Inactive omeprazole 20 mg capsule,delayed release RxNorm: 153425 1 Capsule(s) Oral every day 09/07/20 19 2019 Inactive Sudafed 12 Hour 120 mg tablet,extended release RxNorm: 7729053 1 Tablet(s) Oral every 12 hours as needed 09/04/20 19 2018 Inactive pantoprazole 40 mg tablet,delayed release RxNorm: 166679 1 Tablet(s) Oral every day 08/24/202018 Inactive discontinue any other H2Blkr. and PPI albuterol sulfate 2.5 mg/3 mL (0.083 %) solution for nebulization RxNorm: 856961 1 Vial Inhalation every four hours as needed as needed for dyspnea 08/17/20 19 2019 Inactive 60/box. This refill negates all other refills of this medication. Please do not fill early. Please do not auto refill. Symbicort 160 mcg-4.5 mcg/actuation HFA aerosol inhaler RxNorm: 4447268 2 Puff(s) INH BID 08/17/20 No Stop Date Active Alcohol Prep Pads RxNorm: 088082 1 Patch TOP QAM 08/17/20 19 2019 Inactive Ventolin HFA 90 mcg/actuation aerosol inhaler RxNorm: 850654 2 Puff(s) INH QID 08/09/20 19 2019 Inactive Please do not fill early. Please do not auto refill. This refill negates all other refills of this medication True Metrix Glucose Test Strip RxNorm: 1 Test Strips Miscellaneous QAM 08/09/20 19 2019 Inactive 100/container atorvastatin 40 mg tablet RxNorm: 323534 1 Tablet(s) Oral every day 07/04/20 19 2019 Inactive levmetamfetamine 50 mg nasal inhaler RxNorm: 1 Unit(s) NASAL Q3-4H Do not use more than every 3 hours or 8 times/24hours 06/26/20 19 2021 Inactive Please do not auto refill. This refill negates all other refills of this medication buspirone 7.5 mg tablet RxNorm: 867672 1 Tablet(s) PO BID 06/26/20 19 2020 Inactive This refill negates all other refills of this medication hydrochlorothiazide 12.5 mg tablet RxNorm: 323362 1 Tablet(s) PO QAM 06/26/20 19 2019 Inactive Ventolin HFA 90 mcg/actuation aerosol inhaler RxNorm: 908680 2 Puff(s) INH QID 06/26/20 19 2018 Inactive Please do not fill early. Please do not auto refill. This refill negates all other refills of this medication Singulair 10 mg tablet RxNorm: 950642 1 Tablet(s) PO daily 06/26/20 19 2019 Inactive This refill negates all other refills of this medication cetirizine 10 mg tablet RxNorm: 8509334 1 Tablet(s) PO daily 06/26/20 19 2019 Inactive This refill negates all other refills of this medication. Please do not auto refill levothyroxine 50 mcg tablet RxNorm: 669908 1 Tablet(s) PO daily 06/26/20 19 2019 Inactive This refill negates all other refills of this medication diclofenac sodium 75 mg tablet,delayed release RxNorm: 995245 1 Tablet(s) PO BID 06/26/20 19 2019 Inactive This refill negates all other refills of this medication ranitidine 150 mg tablet RxNorm: 581032 1 Tablet(s) PO BID 06/26/20 19 2018 Inactive This refill negates all other refills of this medication Calcium 600-D3 Plus (mag-zinc) 600 mg calcium-800 unit-50 mg tablet RxNorm: 1 Tablet(s) PO daily take an additonal tablet for itching. 06/26/20 19 2018 Inactive This refill negates all other refills of this medication albuterol sulfate 2.5 mg/3 mL (0.083 %) solution for nebulization RxNorm: 312924 1 Vial INH QID 06/26/20 19 2018 Inactive 60/box. This refill negates all other refills of this medication. Please do not fill early. Please do not auto refill. lisinopril 2.5 mg tablet RxNorm: 380708 1 Tablet(s) PO daily 06/21/20 19 2019 Inactive gabapentin 300 mg capsule RxNorm: 721243 1 Capsule(s) PO TID 06/21/20 19 2019 Inactive atorvastatin 20 mg tablet RxNorm: 359390 1 Tablet(s) PO QHS 06/07/20 19 2018 Inactive This refill negates all other refills of this medication TRUEplus Lancets 30 gauge RxNorm: 1 Lancets Miscellaneous QAM 05/29/20 19 2018 Inactive 100/box gabapentin 300 mg capsule RxNorm: 981921 1 Capsule(s) PO TID 05/03/20 19 2018 Inactive César Beckett (iron) 18 mg iron chewable tablet RxNorm: 1 Tablet(s) PO daily 04/04/20 19 2021 Inactive This refill negates all other refills of this medication gabapentin 300 mg capsule RxNorm: 180239 1 Capsule(s) PO TID as needed 02/01/20 19 2018 Inactive True Metrix Glucose Test Strip RxNorm: 1 Test Strips Miscellaneous QAM 02/01/20 19 2018 Inactive 100/container Alcohol Prep Pads RxNorm: 205171 1 Patch TOP QAM 02/01/202018 Inactive TRUEplus Lancets 30 gauge RxNorm: 1 Lancets Miscellaneous QAM 02/01/20 19 2018 Inactive 100/box lisinopril 2.5 mg tablet RxNorm: 607221 1 Tablet(s) PO daily 12/28/19 19 2018 Inactive ranitidine 150 mg tablet RxNorm: 264382 1 Tablet(s) PO BID 10/21/192018 Inactive This refill negates all other refills of this medication albuterol sulfate 2.5 mg/3 mL (0.083 %) solution for nebulization RxNorm: 682733 1 Vial INH QID 10/21/192018 Inactive 60/box. [...] this medication gabapentin 300 mg capsule RxNorm: 557891 1 Capsule(s) PO TID as needed 10/21/192018 Inactive atorvastatin 20 mg tablet RxNorm: 672643 1 Tablet(s) PO QHS 10/21/19 19 2018 Inactive This refill negates all other refills of this medication trazodone 50 mg tablet RxNorm: 551865 1 Tablet(s) PO QHS 10/21/19 19 2018 Inactive This refill negates all other refills of this medication Ventolin HFA 90 mcg/actuation aerosol inhaler RxNorm: 815213 2 Puff(s) INH QID 10/21/192018 Inactive Please do not fill early. Please do not auto refill. This refill negates all other refills of this medication Calcium 600-D3 Plus 600 mg calcium-800 unit-50 mg tablet RxNorm: 1 Tablet(s) PO daily take an additonal tablet for itching. 10/21/192018 Inactive This refill negates all other refills of this medication Singulair 10 mg tablet RxNorm: 030451 1 Tablet(s) PO daily 10/21/192018 Inactive This refill negates all other refills of this medication buspirone 7.5 mg tablet RxNorm: 822218 1 Tablet(s) PO BID 10/21/192018 Inactive This refill negates all other refills of this medication diclofenac sodium 75 mg tablet,delayed release RxNorm: 841398 1 Tablet(s) PO BID 10/21/19 19 2018 Inactive This refill negates all other refills of this medication hydrochlorothiazide 12.5 mg tablet RxNorm: 141075 1 Tablet(s) PO QAM 10/21/192018 Inactive metoprolol succinate ER 50 mg tablet,extended release 24 hr RxNorm: 843724 1 Tablet(s) PO daily 10/21/192018 Inactive This refill negates all other refills of this medication levothyroxine 50 mcg tablet RxNorm: 045314 1 Tablet(s) PO daily 10/21/19 19 2018 Inactive This refill negates all other refills of this medication cetirizine 10 mg tablet RxNorm: 5438005 1 Tablet(s) PO daily 10/21/192018 Inactive This refill negates all other refills of this medication. Please do not auto refill Flintstones Complete (iron) 18 mg iron chewable tablet RxNorm: 1 Tablet(s) PO daily 10/21/19 19 2018 Inactive This refill negates all other refills of this medication buspirone 7.5 mg tablet RxNorm: 824810 1 Tablet(s) PO BID 10/12/19 19 2018 Inactive cetirizine 10 mg tablet RxNorm: 6199617 1 Tablet(s) PO daily 09/28/20 18 2018 Inactive Guaiasorb DM 10 mg-100 mg/5 mL oral liquid RxNorm: 684117 10 Milliliter(s) PO As needed every 4 hr 09/24/202018 Inactive Vicks Vaporub 4.7 %-1.2 %-2.6 % topical ointment RxNorm: 3877465 1 Application TOP TID 09/24/20 18 2018 Inactive levmetamfetamine 50 mg nasal inhaler RxNorm: 1 Unit(s) NASAL Q3-4H 09/24/20 18 2017 Inactive sertraline 50 mg tablet RxNorm: 716172 1 Tablet(s) PO daily 09/09/20 18 2018 Inactive Please note dose trazodone 50 mg tablet RxNorm: 712101 1 Tablet(s) PO QHS 09/06/20 18 2018 Inactive sertraline 50 mg tablet RxNorm: 074763 1 Tablet(s) PO daily 09/06/20 18 2017 Inactive amoxicillin 500 mg tablet RxNorm: 594995 1 Tablet(s) PO Q12H 08/31/20 18 2017 Inactive albuterol sulfate 2.5 mg/3 mL (0.083 %) solution for nebulization RxNorm: 667978 1 Vial INH QID 08/10/20 18 2018 Inactive 60/box. Please do not fill early. Please do not auto refill. Prozac 10 mg capsule RxNorm: 414244 1 Capsule(s) PO daily 08/09/20 18 2017 Inactive buspirone 7.5 mg tablet RxNorm: 398216 1 Tablet(s) PO BID 08/09/20 18 2018 Inactive gabapentin 300 mg capsule RxNorm: 325030 1 Capsule(s) PO TID as needed 08/01/20 18 2018 Inactive hydrochlorothiazide 12.5 mg tablet RxNorm: 393392 1 Tablet(s) PO QAM 08/01/20 18 2018 Inactive ranitidine 150 mg tablet RxNorm: 035708 1 Tablet(s) PO BID 08/01/20 18 2018 Inactive Macrobid 100 mg capsule RxNorm: 205605 1 Capsule(s) PO Q12H 06/21/20 18 2017 Inactive Singulair 10 mg tablet RxNorm: 859843 1 Tablet(s) PO daily 06/14/20 18 2018 Inactive Ventolin HFA 90 mcg/actuation aerosol inhaler RxNorm: 4388280 2 Puff(s) INH QID 06/14/20 18 2018 Inactive Singulair 10 mg tablet RxNorm: 968130 1 Tablet(s) PO daily 06/14/20 18 2017 Inactive buspirone 7.5 mg tablet RxNorm: 209948 1 Tablet(s) PO BID 06/14/20 18 2017 Inactive Prozac 10 mg capsule RxNorm: 031804 1 Capsule(s) PO daily 06/14/20 18 2017 Inactive Neilmed Pediatric Sinus Rinse Refill packet RxNorm: 1 Unit Dose NASAL PRN 05/31/20 18 2021 Inactive diclofenac sodium 75 mg tablet,delayed release RxNorm: 873546 1 Tablet(s) PO BID 05/31/20 18 2017 Inactive lisinopril 2.5 mg tablet RxNorm: 879435 1 Tablet(s) PO daily 05/31/20 18 2017 Inactive metoprolol succinate ER 50 mg tablet,extended release 24 hr RxNorm: 803702 1 Tablet(s) PO daily 05/31/20 18 2017 Inactive levothyroxine 50 mcg tablet RxNorm: 266793 1 Tablet(s) PO daily 05/31/20 18 2017 Inactive TRUEplus Lancets 30 gauge RxNorm: 1 Lancets Miscellaneous QAM 05/31/20 18 2017 Inactive 100/box Ventolin HFA 90 mcg/actuation aerosol inhaler RxNorm: 556605 2 Puff(s) INH QID 05/31/20 18 2017 Inactive Aleve 220 mg capsule RxNorm: 2459002 1 Capsule(s) PO BID 05/31/20 18 2018 Inactive ranitidine 150 mg tablet RxNorm: 767837 1 Tablet(s) PO BID 05/31/20 18 2017 Inactive gabapentin 300 mg capsule RxNorm: 664110 1 Capsule(s) PO TID as needed 05/31/20 18 2017 Inactive atorvastatin 20 mg tablet RxNorm: 850083 1 Tablet(s) PO QHS 05/31/20 18 2017 Inactive True Metrix Glucose Test Strip RxNorm: 1 Test Strips Miscellaneous QAM 05/31/20 18 2017 Inactive 50/container Calcium 600-D3 Plus 600 mg calcium-800 unit-50 mg tablet RxNorm: 1 Tablet(s) PO daily take an additonal tablet for itching. 05/31/20 18 2017 Inactive hydrochlorothiazide 12.5 mg tablet RxNorm: 101702 1 Tablet(s) PO QAM 05/31/20 18 2017 Inactive Flintstones Complete (iron) 18 mg iron chewable tablet RxNorm: 1 Tablet(s) PO daily 05/31/20 18 2017 Inactive d-mannose oral powder RxNorm: PO 18 2021 Inactive True Metrix Glucose Meter RxNorm: miscellaneous 08/17/20 19 2018 Inactive sertraline 50 mg tablet RxNorm: 748871 1 Tablet(s) PO daily 11/28/19 20 2019 Inactive loperamide 2 mg tablet RxNorm: 606691 oral 09/29/20 19 2018 Inactive Symbicort 160 mcg-4.5 mcg/actuation HFA aerosol inhaler RxNorm: 7934938 2 Puff(s) INH BID 08/17/20 2018 Inactive Medication Administered No Medication Administered data Procedures Procedure Codes Date Frailty Screening CPT-4: SFD 05/20/2021 Hypertension CPT-4: HTN 04/01/2021 Tobacco Assessment/Screening CPT-4: TCA 08/2021 Patient Health Questionnaire CPT-4: DPHQ 08/2021 Mini Mental State Exam CPT-4: DMMA 1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
--- OUTSIDE RECORDS SUMMARY | 2021-07-06 20:00 | XMS_ITS | CCD ---
Author Name Chivo Bishop NP Address [address] [address] [place] [address] Phone Organization [facility] [facility] Phone Care Team Providers Care Infant Caregiver Name Role Phone Palomo KING, Anna Primary Care Provider Unav ailable Unavailable Chronic Care Management Unavaila ble Summary Purpose DataExchange Insurance Providers Payer name Policy type / Coverage type Covered democrat ID Effective Begin Date Effective End Date SUKI MAYO [id number] Unknown Unknown Family history Mother Diagnosis Age [...] 05/31/2018 Education level Unknown Some High School 10th05/31/20186314JwwzggvvrfNunbrkoVkdcifxbgi70/29/2018Tobacco historySNOMED CT: [id number] never smoked or chewed [id number]/31/2018Alcohol historySNOMED CT: [id number] drinks [id number]/31/2018Has the patient ever used illegal drugs? UnknownHas never used illegal drugs05/31/2018DNR Order/ Advanced Directive UnknownFull Code05/31/2018 Allergies, Adverse Reactions, Alerts Substance Reaction Codes Entered Date Inactivated Date Status OxyContin itch, RxNorm: 015758 01/13/2021 No Inactive Da te Active *No known food allergies Bpjhcpo7809/06/2018No Inactive DateActiveMethylprednisolonehivesRxNorm: 6902 09/06/2018No Inactive DateActive Problems Condition Codes Effective Dates Condition St atus Dyspnea, unspecified ICD-10: R06.00 ICD-9: 786.0905/06/2019ActiveGERD (gastroesophageal reflux disease)ICD-10: K21.9 ICD-9: 530.8112/03/2019ActiveHyperlipidemia, unspecifiedICD-10: E78.5 ICD-9: 272.408ActiveType 2 diabetes mellitus with peripheral neuropathy ICD-10: E11.42 ICD-9: 250.6002ActiveAdjustment disorder with mixed anxiety and depressed moodICD-10: F43.23 ICD-9: 309.2812/01/2018ActiveCOVID-19 virus RNA test result positive at limit of detectionICD-10: U07.1 ICD-9: 079.8909/1ActiveUpper respiratory infectionICD-10: J06.9 ICD-9: 465.908/ctiveChronic kidney disease, stage 2 (mild)ICD-10: N18.2 ICD-9: 585.201ctiveFamily history of seizuresICD-10: Z84.89 ICD-9: V19.807/ctiveHypertensive heart disease with heart failureICD-10: I11.0 ICD-9: 402.9107/ActiveSyncope and collapseICD-10: R55 ICD-9: 780.203ActiveAnorexiaICD-10: R63.0 ICD-9: 783.003/1ActivePost-traumatic stress disorder, unspecifiedICD-10: F43.10 ICD-9: 309.8112ActiveBlisterICD-10: T14.8XXA ICD-9: 919.2061ActiveObstructive sleep apnea (adult) (pediatric)ICD-10: G47.33 ICD-9: 327.2309ActiveEncounter for screening for tobacco useICD-10: Z01.89 ICD-9: V72.8503ActiveElevated liver enzymesICD-10: R74.8 ICD-9: 790.5041ActiveHistory of bladder surgeryICD-10: Z98.890 ICD-9: V45.8904/1ActiveUrinary retention with incomplete bladder emptying ICD-10: R33.9 ICD-9: 788.2104/ctive(Z00.01-V70.0) Encounter for general adult medical examination with abnormal findingsICD-10: Z00.01 ICD-9: V70.004/ctive(Z13.31-V79.0) Encounter for screening for depressionICD-10: Z13.31 ICD-9: V79.004/ctiveEncounter for immunizationICD-10: Z23 ICD-9: V04.8109/06/2020InactiveEssential (primary) hypertensionICD-10: I10 ICD-9: 401.901InactiveApnea, not elsewhere classifiedICD-10: R06.81 ICD-9: 786.0305/10/2018InactiveChest pain, unspecifiedICD-10: R07.9 ICD-9: 786.5002/InactiveChronic kidney disease, unspecifiedICD-10: N18.9 ICD-9: 585.909/InactiveDiarrheaICD-10: R19.7 ICD-9: 787.9112InactiveEncounter for immunizationICD-10: Z23 ICD-9: V03.907/InactiveEncounter for preprocedural cardiovascular examinationICD-10: Z01.810 ICD-9: V72.8106InactiveHeadacheICD-10: R51 ICD-9: 784.001InactiveOther storage garage attendant (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ICD-10: Z79.899 ICD-9: V58.6907InactiveType 2 diabetes mellitus without complications ICD-10: E11.9 ICD-9: 250.0001InactiveWheezingICD-10: R06.2 ICD-9: 786.0711/03/2018InactiveAbnormal urine findingICD-10: R82.90 ICD-9: 791.912ResolvedAbrasion of toeICD-10: S90.416A ICD-9: 917.005/ResolvedPink eyeICD-10: H10.029 ICD-9: 372.0303/ResolvedRight wrist painICD-10: M25.531 ICD-9: 719.4308/09/2020ResolvedSinusitisICD-10: J32.9 ICD-9: 473.902/02/2020ResolvedSuperficial burn of multiple sites of right hand, subsequent encounterICD-10: T23.191D ICD-9: V58.8902/1ResolvedUrinary tract infectionICD-10: N39.0 ICD-9: 599.012ResolvedPolyneuropathy, unspecifiedICD-10: G62.9 ICD-9: 356.908/ActiveEncounter for screening, unspecifiedICD-10: Z13.9 ICD-9: V82.9111/06/2017Active(Z12.4-V76.2) Encounter for screening for malignant neoplasm of cervixICD-10: Z12.4 ICD-9: V76.207/ActiveHypothyroidism, unspecifiedICD-10: E03.9 ICD-9: 244.912Active(Z12.11-V76.51) Encounter for screening for malignant neoplasm of colonICD-10: Z12.11 ICD-9: V76.5107/Active(Z12.31-V76.12) Encounter for screening mammogram for malignant neoplasm of breastICD-10: Z12.31 ICD-9: V76.1207/ActiveAdult BMI 50.0-59.9 kg/sq mICD-10: Z68.43 ICD-9: V85.43005/30/2018ActiveFecal incontinenceICD-10: R15.9 ICD-9: 787.6003/ActiveMixed incontinenceICD-10: N39.46 ICD-9: 788.3308ActiveAsthmaICD-10: J45.909 ICD-9: 493.9011ActivePatient Not SeenICD-10: UXZ.01 ICD-9: XZ0.107ActiveAbnormal electrocardiogram [ECG] [EKG]ICD-10: R94.31 ICD-9: 794.31005/30/2018ActiveEdema, unspecifiedICD-10: R60.9 ICD-9: 782.310ActiveLong term (current) use of non-steroidal anti- inflammatories (NSAID)ICD-10: Z79.1 ICD-9: V58.6409Active Medications Medication Codes Instructions Start Date Stop Date Status Fill Instructions hydrochlorothiazide 25 mg tablet RxNorm: 675299 Take 1 Tablet(s) Oral every day 06/12/20 21 2020 Inactive ondansetron 4 mg disintegrating tablet RxNorm: 137165 1 Tablet(s) Oral two times a day 06/10/20 21 2020 Inactive Sudafed 12 Hour 120 mg tablet,extended release RxNorm: 3901610 TAKE 1 TABLET BY MOUTH EVERY 12 HOURS NEEDED 06/01/20 21 2021 Inactive Heartburn Relief (famotidine) 10 mg tablet RxNorm: 497131 Take 1 Tablet(s) Oral every morning 05/07/20 21 2020 Inactive omeprazole 20 mg capsule,delayed release RxNorm: 353591 1 Capsule(s) Oral every evening 04/03/20 21 2020 Inactive sertraline 100 mg tablet RxNorm: 240045 2 Tablet(s) Oral every day 03/13/202020 Inactive levothyroxine 50 mcg tablet RxNorm: 204986 TAKE (1) TABLET BY MOUTH DAILY 02/04/20 21 2020 Inactive metformin 500 mg tablet RxNorm: 000854 1 Tablet(s) Oral two times a day take with 500mg to equal 1000mg 01/14/20 21 2020 Inactive gabapentin 300 mg capsule RxNorm: 712183 TAKE 1 CAPSULE BY MOUTH THREE TIMES A DAY 01/14/20 21 2020 Inactive lisinopril 2.5 mg tablet RxNorm: 686159 TAKE 1 TABLET BY MOUTH DAILY 01/06/20 21 2020 Inactive gabapentin 300 mg capsule RxNorm: 475347 TAKE 1 CAPSULE BY MOUTH THREE TIMES A DAY 01/06/20 21 2020 Inactive Singulair 10 mg tablet RxNorm: 804832 TAKE (1) TABLET BY MOUTH DAILY 01/06/20 21 2020 Inactive metformin 1,000 mg tablet RxNorm: 340152 1 Tablet(s) Oral two times a day 01/06/20 21 2020 Inactive atorvastatin 40 mg tablet RxNorm: 133367 1 Tablet(s) Oral every day 12/06/19 21 2020 Inactive omeprazole 20 mg capsule,delayed release RxNorm: 155335 1 Capsule(s) Oral every evening 11/24/19 21 2020 Inactive famotidine 10 mg tablet RxNorm: 065530 1 Tablet(s) Oral every morning 11/24/19 21 2020 Inactive Alcohol Prep Pads RxNorm: 691436 USE EACH MORNING 10/14/19 21 2020 Inactive omeprazole 20 mg capsule,delayed release RxNorm: 626318 1 Capsule(s) Oral two times a day 10/13/19 21 2021 Inactive omeprazole 20 mg capsule,delayed release RxNorm: 475138 TAKE 1 CAPSULE BY MOUTH EVERY DAY 10/08/19 21 2021 Inactive Macrobid 100 mg capsule RxNorm: 700169 1 Capsule(s) Oral every 12 hours with food 10/01/20 20 2020 Inactive omeprazole 20 mg capsule,delayed release RxNorm: 734241 1 Capsule(s) Oral two times a day 09/24/20 20 2021 Inactive metformin 1,000 mg tablet RxNorm: 663581 1 Tablet(s) Oral two times a day 08/19/20 20 2020 Inactive start on September 11, 2020 metformin 500 mg tablet RxNorm: 362162 1 Tablet(s) Oral two times a day take with 500mg to equal 1000mg 08/19/20 20 2019 Inactive gabapentin 300 mg capsule RxNorm: 568915 TAKE 1 CAPSULE BY MOUTH THREE TIMES DAILY 07/11/20 20 2020 Inactive cetirizine 10 mg tablet RxNorm: 6923572 TAKE (1) TABLET BY MOUTH DAILY 07/11/20 20 2020 Inactive metformin 500 mg tablet RxNorm: 935771 1 Tablet(s) Oral two times a day 07/08/20 20 2019 Inactive loperamide 2 mg tablet RxNorm: 864614 1 Tablet(s) Oral as needed take one tablet after each loose stool, maximum of 8 tablets in 24 hours 06/24/20 20 2021 Inactive Sudafed 12 Hour 120 mg tablet,extended release RxNorm: 5692077 TAKE 1 TABLET BY MOUTH EVERY 12 HOURS NEEDED 06/11/20 20 2019 Inactive hydrochlorothiazide 25 mg tablet RxNorm: 356097 TAKE (1) TABLET BY MOUTH EVERY DAY 06/11/20 20 2019 Inactive omeprazole 20 mg capsule,delayed release RxNorm: 056027 TAKE 1 CAPSULE BY MOUTH EVERY DAY 05/14/20 20 2020 Inactive metformin 500 mg tablet RxNorm: 150120 1 Tablet(s) Oral every day 05/12/20 20 2019 Inactive True Metrix Glucose Test Strip RxNorm: 1 Test Strips Miscellaneous two times a day as needed 04/17/20 No Stop Date Active metformin 500 mg tablet RxNorm: 739477 1 Tablet(s) Oral every day 04/17/20 20 2019 Inactive diclofenac sodium 75 mg tablet,delayed release RxNorm: 263960 1 Tablet(s) PO BID 04/14/20 20 2021 Inactive This refill negates all other refills of this medication Sudafed 12 Hour 120 mg tablet,extended release RxNorm: 0160990 TAKE 1 TABLET BY MOUTH EVERY 12 HOURS NEEDED 03/14/20 20 2019 Inactive True Metrix Glucose Test Strip RxNorm: 1 Test Strips Miscellaneous every morning 03/13/20 20 2019 Inactive 100/container True Metrix Glucose Test Strip RxNorm: 1 Test Strips Miscellaneous QAM 02/22/20 20 2019 Inactive 100/container loperamide 2 mg tablet RxNorm: 433975 1 Tablet(s) Oral as needed take one tablet after each loose stool, maximum of 8 tablets in 24 hours 02/22/20 20 2019 Inactive cetirizine 10 mg tablet RxNorm: 9002240 1 Tablet(s) PO daily 01/17/20 20 2019 Inactive loperamide 2 mg tablet RxNorm: 230107 1 Tablet(s) Oral as needed take one tablet after each loose stool, maximum of 8 tablets in 24 hours 01/17/20 20 2019 Inactive quetiapine 100 mg tablet RxNorm: 975881 1 Tablet(s) Oral every night at bedtime 01/17/20 20 2019 Inactive levothyroxine 50 mcg tablet RxNorm: 795714 1 Tablet(s) PO daily 01/17/20 20 2020 Inactive gabapentin 300 mg capsule RxNorm: 800702 1 Capsule(s) PO TID 01/17/20 20 2019 Inactive levothyroxine 50 mcg tablet RxNorm: 252148 1 Tablet(s) PO daily 01/15/20 20 2019 Inactive lisinopril 2.5 mg tablet RxNorm: 713860 1 Tablet(s) PO daily 01/15/20 20 2020 Inactive gabapentin 300 mg capsule RxNorm: 695353 1 Capsule(s) PO TID 01/15/20 20 2019 Inactive cetirizine 10 mg tablet RxNorm: 6980111 1 Tablet(s) PO daily 01/15/20 20 2019 Inactive Singulair 10 mg tablet RxNorm: 371038 1 Tablet(s) PO daily 01/15/20 20 2020 Inactive gentamicin 0.3 % eye drops RxNorm: 385998 1 Drop(s) ophthalmic (eye) four times a day 12/29/19 20 2019 Inactive gentamicin 0.3 % eye drops RxNorm: 106155 1 Drop(s) ophthalmic (eye) four times a day 12/29/19 20 2019 Inactive gentamicin 0.3 % eye drops RxNorm: 354543 1 Drop(s) ophthalmic (eye) four times a day 12/29/19 20 2019 Inactive hydrochlorothiazide 25 mg tablet RxNorm: 163100 1 Tablet(s) Oral every day 12/21/19 20 2019 Inactive Sudafed 12 Hour 120 mg tablet,extended release RxNorm: 8056274 TAKE (1) TABLET BY MOUTH EVERY 12 HOURS NEEDED 12/21/19 20 2019 Inactive loperamide 2 mg tablet RxNorm: 965974 1 Tablet(s) Oral as needed take one tablet after each loose stool, maximum of 8 tablets in 24 hours 12/11/19 20 2019 Inactive loperamide 2 mg tablet RxNorm: 910471 1 Tablet(s) Oral as needed take one tablet after each loose stool, maximum of 8 tablets in 24 hours 12/11/19 20 2019 Inactive atorvastatin 40 mg tablet RxNorm: 846823 1 Tablet(s) Oral every day 11/29/19 20 2020 Inactive quetiapine 100 mg tablet RxNorm: 849953 1 Tablet(s) Oral every night at bedtime 11/28/19 20 2019 Inactive sertraline 100 mg tablet RxNorm: 005748 1 Tablet(s) Oral 11/28/19 20 2019 Inactive omeprazole 20 mg capsule,delayed release RxNorm: 412964 1 Capsule(s) Oral every day 11/20/19 20 2019 Inactive amoxicillin 250 mg capsule RxNorm: 036530 1 Capsule(s) Oral three times a day 11/07/19 20 2019 Inactive multivitamin with iron-mineral tablet RxNorm: 1 Tablet(s) Oral every day 10/29/19 20 2021 Inactive cetirizine 10 mg tablet RxNorm: 5729315 1 Tablet(s) PO daily 10/20/19 20 2019 Inactive This refill negates all other refills of this medication. Please do not auto refill Singulair 10 mg tablet RxNorm: 021286 1 Tablet(s) PO daily 10/20/19 20 2019 Inactive This refill negates all other refills of this medication gabapentin 300 mg capsule RxNorm: 815384 1 Capsule(s) PO TID 10/20/19 20 2019 Inactive lisinopril 2.5 mg tablet RxNorm: 248292 1 Tablet(s) PO daily 10/20/19 20 2019 Inactive levothyroxine 50 mcg tablet RxNorm: 751853 1 Tablet(s) PO daily 10/20/19 20 2019 Inactive This refill negates all other refills of this medication fenugreek seed extract 500 mg capsule RxNorm: 1 Capsule(s) Oral three times a day 10/17/19 20 2021 Inactive hydrochlorothiazide 25 mg tablet RxNorm: 534769 1 Tablet(s) Oral every day 10/17/19 20 2019 Inactive Alcohol Prep Pads RxNorm: 225536 1 Patch TOP QAM 10/16/19 20 2020 Inactive loperamide 2 mg tablet RxNorm: 582916 1 Tablet(s) Oral as needed take one [...] 09/19/202019 Inactive hydrochlorothiazide 25 mg tablet RxNorm: 098815 1 Tablet(s) Oral every day 09/19/202019 Inactive Sudafed 12 Hour 120 mg tablet,extended release RxNorm: 5187549 1 Tablet(s) Oral every 12 hours as needed 09/11/20 19 2018 Inactive omeprazole 20 mg capsule,delayed release RxNorm: 167830 1 Capsule(s) Oral every day 09/07/20 19 2019 Inactive Sudafed 12 Hour 120 mg tablet,extended release RxNorm: 6057249 1 Tablet(s) Oral every 12 hours as needed 09/04/20 19 2018 Inactive pantoprazole 40 mg tablet,delayed release RxNorm: 742837 1 Tablet(s) Oral every day 08/24/20 19 2018 Inactive discontinue any other H2Blkr. and PPI albuterol sulfate 2.5 mg/3 mL (0.083 %) solution for nebulization RxNorm: 879214 1 Vial Inhalation every four hours as needed as needed for dyspnea 08/17/20 19 2019 Inactive 60/box. This refill negates all other refills of this medication. Please do not fill early. Please do not auto refill. Symbicort 160 mcg-4.5 mcg/actuation HFA aerosol inhaler RxNorm: 7933196 2 Puff(s) INH BID 08/17/20 No Stop Date Active Alcohol Prep Pads RxNorm: 820024 1 Patch TOP QAM 08/17/20 19 2019 Inactive Ventolin HFA 90 mcg/actuation aerosol inhaler RxNorm: 015094 2 Puff(s) INH QID 08/09/202019 Inactive Please do not fill early. Please do not auto refill. This refill negates all other refills of this medication True Metrix Glucose Test Strip RxNorm: 1 Test Strips Miscellaneous QAM 08/09/20 19 2019 Inactive 100/container atorvastatin 40 mg tablet RxNorm: 358114 1 Tablet(s) Oral every day 07/04/20 19 2019 Inactive levmetamfetamine 50 mg nasal inhaler RxNorm: 1 Unit(s) NASAL Q3-4H Do not use more than every 3 hours or 8 times/24hours 06/26/20 19 2021 Inactive Please do not auto refill. This refill negates all other refills of this medication buspirone 7.5 mg tablet RxNorm: 947593 1 Tablet(s) PO BID 06/26/20 19 2020 Inactive This refill negates all other refills of this medication hydrochlorothiazide 12.5 mg tablet RxNorm: 473129 1 Tablet(s) PO QAM 06/26/20 19 2019 Inactive Ventolin HFA 90 mcg/actuation aerosol inhaler RxNorm: 317287 2 Puff(s) INH QID 06/26/20 19 2018 Inactive Please do not fill early. Please do not auto refill. This refill negates all other refills of this medication Singulair 10 mg tablet RxNorm: 714116 1 Tablet(s) PO daily 06/26/20 19 2019 Inactive This refill negates all other refills of this medication cetirizine 10 mg tablet RxNorm: 0162220 1 Tablet(s) PO daily 06/26/20 19 2019 Inactive This refill negates all other refills of this medication. Please do not auto refill levothyroxine 50 mcg tablet RxNorm: 854833 1 Tablet(s) PO daily 06/26/20 19 2019 Inactive This refill negates all other refills of this medication diclofenac sodium 75 mg tablet,delayed release RxNorm: 385959 1 Tablet(s) PO BID 06/26/20 19 2019 Inactive This refill negates all other refills of this medication ranitidine 150 mg tablet RxNorm: 404441 1 Tablet(s) PO BID 06/26/20 19 2018 Inactive This refill negates all other refills of this medication Calcium 600-D3 Plus (mag-zinc) 600 mg calcium-800 unit-50 mg tablet RxNorm: 1 Tablet(s) PO daily take an additonal tablet for itching. 06/26/20 19 2018 Inactive This refill negates all other refills of this medication albuterol sulfate 2.5 mg/3 mL (0.083 %) solution for nebulization RxNorm: 516229 1 Vial INH QID 06/26/20 19 2018 Inactive 60/box. This refill negates all other refills of this medication. Please do not fill early. Please do not auto refill. lisinopril 2.5 mg tablet RxNorm: 642089 1 Tablet(s) PO daily 06/21/20 19 2019 Inactive gabapentin 300 mg capsule RxNorm: 897217 1 Capsule(s) PO TID 06/21/20 19 2019 Inactive atorvastatin 20 mg tablet RxNorm: 376313 1 Tablet(s) PO QHS 06/07/20 19 2018 Inactive This refill negates all other refills of this medication TRUEplus Lancets 30 gauge RxNorm: 1 Lancets Miscellaneous QAM 05/29/20 19 2018 Inactive 100/box gabapentin 300 mg capsule RxNorm: 277018 1 Capsule(s) PO TID 05/03/20 19 2018 Inactive Flintssaranes Complete (iron) 18 mg iron chewable tablet RxNorm: 1 Tablet(s) PO daily 04/04/202021 Inactive This refill negates all other refills of this medication gabapentin 300 mg capsule RxNorm: 534777 1 Capsule(s) PO TID as needed 02/01/202018 Inactive True Metrix Glucose Test Strip RxNorm: 1 Test Strips Miscellaneous QAM 02/01/20 19 2018 Inactive 100/container Alcohol Prep Pads RxNorm: 240116 1 Patch TOP QAM 02/01/202018 Inactive TRUEplus Lancets 30 gauge RxNorm: 1 Lancets Miscellaneous QAM 02/01/20 19 2018 Inactive 100/box lisinopril 2.5 mg tablet RxNorm: 430245 1 Tablet(s) PO daily 12/28/192018 Inactive ranitidine 150 mg tablet RxNorm: 194154 1 Tablet(s) PO BID 10/21/19 19 2018 Inactive This refill negates all other refills of this medication albuterol sulfate 2.5 mg/3 mL (0.083 %) solution for nebulization RxNorm: 325695 1 Vial INH QID 10/21/192018 Inactive 60/box. [...] this medication gabapentin 300 mg capsule RxNorm: 690804 1 Capsule(s) PO TID as needed 10/21/19 19 2018 Inactive atorvastatin 20 mg tablet RxNorm: 906845 1 Tablet(s) PO QHS 10/21/19 19 2018 Inactive This refill negates all other refills of this medication trazodone 50 mg tablet RxNorm: 297788 1 Tablet(s) PO QHS 10/21/19 19 2018 Inactive This refill negates all other refills of this medication Ventolin HFA 90 mcg/actuation aerosol inhaler RxNorm: 026241 2 Puff(s) INH QID 10/21/19 19 2018 Inactive Please do not fill early. Please do not auto refill. This refill negates all other refills of this medication Calcium 600-D3 Plus 600 mg calcium-800 unit-50 mg tablet RxNorm: 1 Tablet(s) PO daily take an additonal tablet for itching. 10/21/192018 Inactive This refill negates all other refills of this medication Singulair 10 mg tablet RxNorm: 591342 1 Tablet(s) PO daily 10/21/192018 Inactive This refill negates all other refills of this medication buspirone 7.5 mg tablet RxNorm: 431178 1 Tablet(s) PO BID 10/21/192018 Inactive This refill negates all other refills of this medication diclofenac sodium 75 mg tablet,delayed release RxNorm: 319305 1 Tablet(s) PO BID 10/21/192018 Inactive This refill negates all other refills of this medication hydrochlorothiazide 12.5 mg tablet RxNorm: 075223 1 Tablet(s) PO QAM 10/21/19 19 2018 Inactive metoprolol succinate ER 50 mg tablet,extended release 24 hr RxNorm: 515519 1 Tablet(s) PO daily 10/21/192018 Inactive This refill negates all other refills of this medication levothyroxine 50 mcg tablet RxNorm: 212513 1 Tablet(s) PO daily 10/21/19 19 2018 Inactive This refill negates all other refills of this medication cetirizine 10 mg tablet RxNorm: 0170962 1 Tablet(s) PO daily 10/21/19 19 2018 Inactive This refill negates all other refills of this medication. Please do not auto refill Flintstones Complete (iron) 18 mg iron chewable tablet RxNorm: 1 Tablet(s) PO daily 10/21/19 19 2018 Inactive This refill negates all other refills of this medication buspirone 7.5 mg tablet RxNorm: 657119 1 Tablet(s) PO BID 10/12/19 19 2018 Inactive cetirizine 10 mg tablet RxNorm: 0438495 1 Tablet(s) PO daily 09/28/20 18 2018 Inactive Guaiasorb DM 10 mg-100 mg/5 mL oral liquid RxNorm: 932982 10 Milliliter(s) PO As needed every 4 hr 09/24/20 18 2018 Inactive Vicks Vaporub 4.7 %-1.2 %-2.6 % topical ointment RxNorm: 6140087 1 Application TOP TID 09/24/20 18 2018 Inactive levmetamfetamine 50 mg nasal inhaler RxNorm: 1 Unit(s) NASAL Q3-4H 09/24/20 18 2017 Inactive sertraline 50 mg tablet RxNorm: 470320 1 Tablet(s) PO daily 09/09/20 18 2018 Inactive Please note dose trazodone 50 mg tablet RxNorm: 798059 1 Tablet(s) PO QHS 09/06/20 18 2018 Inactive sertraline 50 mg tablet RxNorm: 494493 1 Tablet(s) PO daily 09/06/20 18 2017 Inactive amoxicillin 500 mg tablet RxNorm: 315673 1 Tablet(s) PO Q12H 08/31/20 18 2017 Inactive albuterol sulfate 2.5 mg/3 mL (0.083 %) solution for nebulization RxNorm: 113642 1 Vial INH QID 08/10/20 18 2018 Inactive 60/box. Please do not fill early. Please do not auto refill. Prozac 10 mg capsule RxNorm: 599687 1 Capsule(s) PO daily 08/09/20 18 2017 Inactive buspirone 7.5 mg tablet RxNorm: 253202 1 Tablet(s) PO BID 08/09/20 18 2018 Inactive gabapentin 300 mg capsule RxNorm: 516889 1 Capsule(s) PO TID as needed 08/01/20 18 2018 Inactive hydrochlorothiazide 12.5 mg tablet RxNorm: 938636 1 Tablet(s) PO QAM 08/01/20 18 2018 Inactive ranitidine 150 mg tablet RxNorm: 306448 1 Tablet(s) PO BID 08/01/20 18 2018 Inactive Macrobid 100 mg capsule RxNorm: 091683 1 Capsule(s) PO Q12H 06/21/20 18 2017 Inactive Singulair 10 mg tablet RxNorm: 648479 1 Tablet(s) PO daily 06/14/20 18 2018 Inactive Ventolin HFA 90 mcg/actuation aerosol inhaler RxNorm: 2584716 2 Puff(s) INH QID 06/14/20 18 2018 Inactive Singulair 10 mg tablet RxNorm: 872573 1 Tablet(s) PO daily 06/14/20 18 2017 Inactive buspirone 7.5 mg tablet RxNorm: 529334 1 Tablet(s) PO BID 06/14/20 18 2017 Inactive Prozac 10 mg capsule RxNorm: 083503 1 Capsule(s) PO daily 06/14/20 18 2017 Inactive Neilmed Pediatric Sinus Rinse Refill packet RxNorm: 1 Unit Dose NASAL PRN 05/31/20 18 2021 Inactive diclofenac sodium 75 mg tablet,delayed release RxNorm: 464170 1 Tablet(s) PO BID 05/31/20 18 2017 Inactive lisinopril 2.5 mg tablet RxNorm: 337144 1 Tablet(s) PO daily 05/31/20 18 2017 Inactive metoprolol succinate ER 50 mg tablet,extended release 24 hr RxNorm: 763265 1 Tablet(s) PO daily 05/31/20 18 2017 Inactive levothyroxine 50 mcg tablet RxNorm: 705983 1 Tablet(s) PO daily 05/31/20 18 2017 Inactive TRUEplus Lancets 30 gauge RxNorm: 1 Lancets Miscellaneous QAM 05/31/20 18 2017 Inactive 100/box Ventolin HFA 90 mcg/actuation aerosol inhaler RxNorm: 698047 2 Puff(s) INH QID 05/31/20 18 2017 Inactive Aleve 220 mg capsule RxNorm: 8182436 1 Capsule(s) PO BID 05/31/20 18 2018 Inactive ranitidine 150 mg tablet RxNorm: 627178 1 Tablet(s) PO BID 05/31/20 18 2017 Inactive gabapentin 300 mg capsule RxNorm: 511426 1 Capsule(s) PO TID as needed 05/31/20 18 2017 Inactive atorvastatin 20 mg tablet RxNorm: 016919 1 Tablet(s) PO QHS 05/31/20 18 2017 Inactive True Metrix Glucose Test Strip RxNorm: 1 Test Strips Miscellaneous [facility] 05/31/20 18 2017 Inactive 50/container Calcium 600-D3 Plus 600 mg calcium-800 unit-50 mg tablet RxNorm: 1 Tablet(s) PO daily take an additonal tablet for itching. 05/31/20 18 2017 Inactive hydrochlorothiazide 12.5 mg tablet RxNorm: 227724 1 Tablet(s) PO QAM 05/31/20 18 2017 Inactive Flintstones Complete (iron) 18 mg iron chewable tablet RxNorm: 1 Tablet(s) PO daily 05/31/20 18 2017 Inactive d-mannose oral powder RxNorm: PO 18 2021 Inactive True Metrix Glucose Meter RxNorm: miscellaneous 08/17/20 19 2018 Inactive sertraline 50 mg tablet RxNorm: 951528 1 Tablet(s) PO daily 11/28/19 20 2019 Inactive loperamide 2 mg tablet RxNorm: 266675 oral 09/29/20 19 2018 Inactive Symbicort 160 mcg-4.5 mcg/actuation HFA aerosol inhaler RxNorm: 9849935 2 Puff(s) INH BID 08/17/20 19 2018 Inactive Medication Administered No Medication Administered data Procedures Procedure Codes Date Frailty Screening CPT-4: SFD 05/20/2021 Hypertension CPT-4: HTN 04/01/2021 Tobacco Assessment/Screening CPT-4: TCA 08/2021 Patient Health Questionnaire CPT-4: DPHQ 08/2021 Mini Mental State Exam CPT-4: DMMA Annual Wellness Visit (Subsequent Visit) CPT-4: G0439 01/13/2021 Advanced Care Planning CPT-4: VACP [facility] 30326856 4 CPT-4: DFRA01/13/2021emmes Fany AssessmentCPT-4: DSWA12/17/2020Urinalysis, dip stickCPT-4: 366549509/24/2020Patient Health QuestionnaireCPT-4: DPHQ 08/19/2020ElectrocardiogramCPT-4: 212760105/14/2020Tobacco Assessment/Screening CPT-4: TCA01/01/2020Fall Risk AssessmentSNOMED CT: 577468128 CPT-4: DFRA01/01/2020Functional AssessmentCPT-4: DFA01/01/2020Semmes Fany AssessmentCPT-4: DSWA11/28/2019Patient Health QuestionnaireCPT-4: DPHQ11/28/2019 [place] Fany AssessmentCPT-4: DSWA10/17/2019HypertensionCPT-4: HTN10/17/[address]: 209700383 CPT-4: DFRA09/19/2019Functional AssessmentCPT-4: DFA111/20/2018Urinalysis, dip stickCPT-4: 1278032Tobacco Assessment/ScreeningCPT-4: TCA05/24/2019 Patient Health QuestionnaireCPT-4: DPHQ05/24/2019AHA/REBECCA Classification AssessmentCPT-4: DAHA04/25/2019Controlled Substance ReportCPT-4: CTRSU04/25/2019 Urinalysis, dip stickCPT-4: 212506203/28/2019Urinalysis, dip stickCPT-4: 72889 03/28/20195991K8D-VwjyajoducgvufvIKI-5: 45079MoxjxczS6K-SokqizvyvvezywbMHM-7: 66636 WkvhtbjX9M-YwhragbaatrtxoyAKG-4: 65478IzwssybP8N-KeaqhdkfzwmdqpjOKO-8: 36238 JygrnmwB1I-OyuyercqbgtifrsAXR-3: 48354AkgykzrP7Y-UbdxlhleelwpgyaDRP-6: 42252 NnspjggO7T-PpimflgncxojozcOKE-0: 23510XbwnvdfZfnwynsioy [facility]: 627479700 CPT-4: A88Bxreezt Reason For Visit Reason For Visit Effective Dates Notes hyperlipidemia disease 07/06/2021 gastroesophageal reflux disease 07/06/2021 Interim health update 07/06/2021 Encounters Encounter Performer Location Location Address Codes Magdi e ([id number]) (EST PT) [facility]ED [facility]LE[facility] VISIT Diagnosis: Type 2 diabetes mellitus with peripheral neuropathy[ICD10: E11.42] Diagnosis: GERD (gastroesophageal reflux disease)[ICD10: K21.9] Diagnosis: Hyperlipidemia, unspecified[ICD10: E78.5] Diagnosis: Dyspnea, unspecified[ICD10: R06.00]Chivo Johnson [address] [place] [address] 66841CVO-6: [id number] Plan of Care Planned Activity Notes Codes Status Date Visit Plan: Video and audio call using [employer] [id number] COVID-19 virus RNA test result positive [...] to this medication uses monitor [employer] through [place]-participant of [facility] on demand 05/20/2021 Hemoglobin A1C 5.4 stable 10/17/2019 [place] Fany 7/10-instructed on good daily foot care [...] previously discussed stress management routine follow up [facility] [place] 03/13/2021 PHQ 9 Score 4 Sertraline 200mg daily 04/01/2021 Functional Assessment independent with ADLs R63.0-783.0 Anorexia consuming 1 -2 meals per day advised to continue to try small, more frequent food intake, discussed limiting carbonated beverages as this may make her feel full taking away appetite discussed benefits of [place] Instant Breakfast not using note weight has remained stable over the past couple months-will continue to monitor I10-401.9 Essential (primary) hypertension I11.0-402.91 Hypertensive heart disease with heart failurecont hctz and lisinopril 04/01/2021 HTN assessment complete discussed lifestyle modification including weight loss and limiting sodium intake 05/20/2021 GFR >60 [facility] lab didn't provide exact number 05/14/2020 EKG NSR 05/14/2020 OVN SpO2 <88% greater than 7 minutes Echocardiogram DOS 07/02/2020Norrmal LVSF, EF 60% N18.2-585.2 Chronic kidney disease, [...] new appt for pap in June 2020-[facility]-reports pap negative Z01.89-V72.85 Encounter for screening for tobaccouse 03/13/2021 Tobacco screen complete-patient denies ever smoking Z12.31-V76.12 (Z12.31-V76.12) Encounter for screening mammogram for malignant neoplasm of breast Z12.11-V76.51 (Z12.11-V76.51) Encounter for screening for malignant neoplasm of colon Preventative testing not indicated due to age *I reviewed the most recent CDC guidelines regarding Covid-19/Coronavirus with the patient/caregiver/designee 07/06/2021atient Education: Patient Medication NqrebiqGvtqgzltx67/04/2021 Appointment: Chivo Bishop WPtel: [phone] [place] [address] [id number]/10/2021ppointment: Anna Culver WPtel: [phone] [place] [address] USETV06/02/2021ppointment: Chivo Bishop WPtel: [phone] [place] [address] USETV05/20/2021ppointment: Anna Culver WPtel: [address] [place] [address] USETV04/28/2021ppointment: Chivo Bishop WPtel: [phone] [place] [address] USETV04/15/2021ppointment: Anna Culver WPtel: [phone] [place] [address] [id number]: Anna Culver WPtel: [phone] [place] [address] USETV03/24/2021ppointment: Anna Culver WPtel: [phone] [place] [address] USETV03/13/2021ppointment: Anna Culver WPtel: [phone] [place] [address] [id number]: Chivo Bishop WPtel: [phone] [place] [address] [id number]: Anna Culver WPtel: [phone] [place] [address] USETV01/13/2021ppointment: Anna Culver WPtel: [phone] [place] [address] [id number]: Chivo Bishop WPtel: [phone] [place] [address] [address] [address] USETV11/28/2020ppointment: Anna Culver WPtel: [address] [place] [address] USETV11/24/2020ppointment: Anna Culver WPtel: [phone] [place] [address] [id number]: Anna Culver WPtel: [phone] [place] [address] [id number]: Anna Culver WPtel: [address] [place] [address] USETV110/26/2019Appointment: Anna Culver WPtel: [address] [place] [address] USETV110/19/2019Appointment: Anna Culver WPtel: [address] [place] [address] USETV1Appointment: Anna Culver WPtel: [address] [place] [address] USETV1Appointment: Gianna Birmingham [facility]: [address] [facility] [address] [id number]: Anna Culver WPtel: [address] [place] [address] [id number]: Anna Culver WPtel: [phone] [place] [address] [id number]: Anna Culver WPtel: [phone] [place] [address] [id number]: Anna Culver WPtel: [phone] [place] [address] [address] [address] [id number]: Anna Culver WPtel: [phone] [place] [address] [id number]: Anna Culver WPtel: [phone] [place] [address] [id number]: Anna Culver WPtel: [address] [place] [address] [id number]: Anna Culver WPtel: [address] [place] [address] [id number]: Anna Culver WPtel: [address] [place] [address] [id number]: Anna Culver WPtel: [address] [place] [address] [id number]/20/2018Appointment: Sudha Hernadez WPtel: [address] [facility] [id number]: Sudha Hernadez WPtel: [address] [facility] [address] [id number]: Charlene Oropeza WPtel: [address] [facility] [address] [id number]: Enedelia [id number]: Charlene Oropeza WPtel: [address] [facility] [id number]: Rasta Palafox WPtel: [address] [facility] [id number]: Rasta Palafox WPtel: [address] [facility] [id number]: Rasta Palafox WPtel: [address] [facility] [id number]: Rasta Palafox WPtel: [address] [facility] [id number]: Pending Gynecology Referral InformationReferral ProcessedReferral: Pending Pulmonology Referral InformationReferralProcessed Referral: Pending Psychiatry Referral InformationReferralInitiatedReferral: Pending Respiratory Services Referral InformationReferralInitiatedReferral: Pending Ophthalmology Referral InformationReferralInitiatedReferral: [facility] WPtel: [address] [place], [place] [id number] USWriter placed a call out to the patient to notify her that it has been recommended that she be seenby 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 Patient agreed to be seen, does not have a provider of choice and no transportationissues. Cost Accounting Manager faxed referral and clinical notes to [facility] in [place], [place] near the patient's home. Patient to [...] seen and prefers a provider in the [place] or [facility]. Cost Accounting Manager placed a call out to everyone listed in the area and the only location that was able to accept the patient's insurance was [facility] [address] [place] [address] and spoke with Maylin. Maylin asked that the patient's referral, face sheet and visit notes be faxed to . Cost Accounting Manager faxed over requested documents. Patient appointment confirmation letter generated and mailed to her home address. Patient to call to schedule an appointment.ProcessedReferral: [facility] WPtel: [address] [facility] [address] [id number] USPatient notified that it has been advised that she be seen by Neurology. Patient agreed to be seen and prefers to be seen by a provider in the [place], [place] area. Patient denies any concerns with transportation, and prefers to schedule her own appointment. Cost Accounting Manager placed a call out to [facility] and spoke with Neeraj Mcfarland: who confirmed that their office is able to acceptnew patients and the patient's insurance. After confirming the providers fax number, journalists and other writers faxed over the patient's referral, and most [...] ? . Video and audio call using [employer] [id number] COVID-19 virus RNA test result positive at [...] demand 05/20/2021 Hemoglobin A1C 5.4; stable 10/17/2019 [place] Fany 04/11-instructed on good daily foot care routine [...] previously discussed stress management routine follow up [facility] [place] 03/13/2021 PHQ 9 Score 4 Sertraline 200mg daily 04/01/2021 Functional Assessment independent with ADLs R63.0-783.0 Anorexia consuming 1 -2 meals per day advised to continue to try small, more frequent food intake, discussed limiting carbonated beverages as this may make her feel full taking away appetite discussed benefits of [place] Instant Breakfast not using note weight has remained stable over the past couple months-will continue to monitor I10-401.9 Essential (primary) hypertension I11.0-402.91 Hypertensive heart disease with heart failure cont hctz and lisinopril 04/01/2021 HTN assessment complete discussed lifestyle modification including weight loss and limiting sodium intake 05/20/2021 GFR >60 [place] lab didn't provide exact number 05/14/2020 EKG [...] new appt for pap in June 2020-[facility]-reports pap negative Z01.89-V72.85 Encounter for screening for [...]
--- OUTSIDE RECORDS SUMMARY | 2021-08-13 20:00 | XMS_ITS | CCD ---
Author Name Chivo Bishop NP Address [address] [place] [address] Phone Organization [employer] [facility] Phone Care Team Providers Care Group Fitness Department Head Name Role Phone Palomo KING, Anna Primary Care Provider Unav ailable Unavailable Chronic Care Management Unavaila ble Summary Purpose DataExchange Insurance Providers Payer name Policy type / Coverage type Covered alliance party ID Effective Begin Date Effective End Date SUKI MAYO [id number] Unknown Unknown Family history Mother Diagnosis Age [...] 05/31/2018 Education level Unknown Some High School 10th05/31/20188954PjwmjscgfpYbzclrsCizfnjhodt88/29/2018Tobacco historySNOMED CT: 955284168Vmn never smoked or chewed tojhoca6305/31/2018Alcohol historySNOMED CT: 242448627Itana drinks jcsptwf7405/31/2018Has the patient ever used illegal drugs? UnknownHas never used illegal drugs05/31/2018DNR Order/ Advanced Directive UnknownFull Code05/31/2018 Allergies, Adverse Reactions, Alerts Substance Reaction Codes Entered Date Inactivated Date Status OxyContin itch, RxNorm: 111777 01/13/2021 No Inactive Da te Active *No known food allergies Kilgfbc0109/06/2018No Inactive DateActiveMethylprednisolonehivesRxNorm: 6902 09/06/2018No Inactive DateActive Problems Condition Codes Effective Dates Condition St atus Diarrhea ICD-10: R19.7 ICD-9: 787.9111/1ActiveGERD (gastroesophageal reflux disease)ICD-10: K21.9 ICD-9: 530.8112ActiveHyperlipidemia, unspecifiedICD-10: E78.5 ICD-9: 272.408ActiveType 2 diabetes mellitus with peripheral neuropathy ICD-10: E11.42 ICD-9: 250.6002ActiveDyspnea, unspecifiedICD-10: R06.00 ICD-9: 786.0905ActiveAdjustment disorder with mixed anxiety and depressed moodICD-10: F43.23 ICD-9: 309.28111/06/2017ActiveCOVID-19 virus RNA test result positive at limit of detectionICD-10: U07.1 ICD-9: 079.8909/ctiveUpper respiratory infectionICD-10: J06.9 ICD-9: 465.908/ctiveChronic kidney disease, stage 2 (mild)ICD-10: N18.2 ICD-9: 585.201/1ActiveFamily history of seizuresICD-10: Z84.89 ICD-9: V19.807/ctiveHypertensive heart disease with heart failureICD-10: I11.0 ICD-9: 402.9107/ActiveSyncope and collapseICD-10: R55 ICD-9: 780.ActiveAnorexiaICD-10: R63.0 ICD-9: 783.003/1ActivePost-traumatic stress disorder, unspecifiedICD-10: F43.10 ICD-9: 309.8112ActiveBlisterICD-10: T14.8XXA ICD-9: 919.1ActiveObstructive sleep apnea (adult) (pediatric)ICD-10: G47.33 ICD-9: 327.2309ActiveEncounter for screening for tobacco useICD-10: Z01.89 ICD-9: V72.8503ActiveElevated liver enzymesICD-10: R74.8 ICD-9: 790.504/1ActiveHistory of bladder surgeryICD-10: Z98.890 ICD-9: V45.8904/1ActiveUrinary retention with incomplete bladder emptying ICD-10: R33.9 ICD-9: 788.2104/ctive(Z00.01-V70.0) Encounter for general adult medical examination with abnormal findingsICD-10: Z00.01 ICD-9: V70.004/ctive(Z13.31-V79.0) Encounter for screening for depressionICD-10: Z13.31 ICD-9: V79.004/ctiveEncounter for immunizationICD-10: Z23 ICD-9: V04.8109/06/2020InactiveEssential (primary) hypertensionICD-10: I10 ICD-9: 401.901InactiveApnea, not elsewhere classifiedICD-10: R06.81 ICD-9: 786.0305/10/2018InactiveChest pain, unspecifiedICD-10: R07.9 ICD-9: 786.5002/InactiveChronic kidney disease, unspecifiedICD-10: N18.9 ICD-9: 585.909/InactiveEncounter for immunizationICD-10: Z23 ICD-9: V03.907/InactiveEncounter for preprocedural cardiovascular examinationICD-10: Z01.810 ICD-9: V72.8106/InactiveHeadacheICD-10: R51 ICD-9: 784.001/10/2018InactiveOther long term care social worker (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ICD-10: Z79.899 ICD-9: V58.6907/InactiveType [...] Fill Instructions levothyroxine 50 mcg tablet RxNorm: 116652 Take 1 Tablet(s) Oral every day 08/13/20 21 2020 Inactive Probiotic 10 billion cell capsule RxNorm: 6140371 Take 1 Capsule(s) Oral every day 08/13/202021 Inactive Acid Metal Slitter (famotidine) 20 mg tablet RxNorm: 920963 Take 1 Tablet(s) Oral every morning 08/13/20 21 2020 Inactive Heartburn Relief (famotidine) 10 mg tablet RxNorm: 545710 Take 1 Tablet(s) Oral QAM 08/07/20 21 2020 Inactive levothyroxine 50 mcg tablet RxNorm: 061810 Take 1 Tablet(s) Oral QD 08/07/20 21 2020 Inactive metformin 1,000 mg tablet RxNorm: 265152 1 Tablet(s) Oral two times a day 07/16/20 21 2021 Inactive Singulair 10 mg tablet RxNorm: 735701 TAKE (1) TABLET BY MOUTH DAILY 07/16/20 21 2020 Inactive lisinopril 2.5 mg tablet RxNorm: 928123 Take 1 Tablet(s) Oral every day 07/11/20 21 2020 Inactive hydrochlorothiazide 25 mg tablet RxNorm: 832566 Take 1 Tablet(s) Oral every day 06/12/20 21 2020 Inactive ondansetron 4 mg disintegrating tablet RxNorm: 617888 1 Tablet(s) Oral two times a day 06/10/20 21 2020 Inactive Sudafed 12 Hour 120 mg tablet,extended release RxNorm: 6072912 TAKE 1 TABLET BY MOUTH EVERY 12 HOURS NEEDED 06/01/20 21 2021 Inactive Heartburn Relief (famotidine) 10 mg tablet RxNorm: 929363 Take 1 Tablet(s) Oral every morning 05/07/20 21 2020 Inactive omeprazole 20 mg capsule,delayed release RxNorm: 392464 1 Capsule(s) Oral every evening 04/03/20 21 2020 Inactive sertraline 100 mg tablet RxNorm: 360293 2 Tablet(s) Oral every day 03/13/20 21 2020 Inactive levothyroxine 50 mcg tablet RxNorm: 095155 TAKE (1) TABLET BY MOUTH DAILY 02/04/20 21 2020 Inactive metformin 500 mg tablet RxNorm: 048760 1 Tablet(s) Oral two times a day take with 500mg to equal 1000mg 01/14/20 21 2020 Inactive gabapentin 300 mg capsule RxNorm: 518735 TAKE 1 CAPSULE BY MOUTH THREE TIMES A DAY 01/14/20 21 2020 Inactive lisinopril 2.5 mg tablet RxNorm: 354200 TAKE 1 TABLET BY MOUTH DAILY 01/06/20 21 2020 Inactive gabapentin 300 mg capsule RxNorm: 323476 TAKE 1 CAPSULE BY MOUTH THREE TIMES A DAY 01/06/20 21 2020 Inactive Singulair 10 mg tablet RxNorm: 846561 TAKE (1) TABLET BY MOUTH DAILY 01/06/20 21 2020 Inactive metformin 1,000 mg tablet RxNorm: 743691 1 Tablet(s) Oral two times a day 01/06/20 21 2020 Inactive atorvastatin 40 mg tablet RxNorm: 264910 1 Tablet(s) Oral every day 12/06/19 21 2020 Inactive omeprazole 20 mg capsule,delayed release RxNorm: 407667 1 Capsule(s) Oral every evening 11/24/19 21 2020 Inactive famotidine 10 mg tablet RxNorm: 414253 1 Tablet(s) Oral every morning 11/24/19 21 2020 Inactive Alcohol Prep Pads RxNorm: 027210 USE EACH MORNING 10/14/19 21 2020 Inactive omeprazole 20 mg capsule,delayed release RxNorm: 547757 1 Capsule(s) Oral two times a day 10/13/19 21 2021 Inactive omeprazole 20 mg capsule,delayed release RxNorm: 745648 TAKE 1 CAPSULE BY MOUTH EVERY DAY 10/08/19 21 2021 Inactive Macrobid 100 mg capsule RxNorm: 616428 1 Capsule(s) Oral every 12 hours with food 10/01/20 20 2020 Inactive omeprazole 20 mg capsule,delayed release RxNorm: 342466 1 Capsule(s) Oral two times a day 09/24/20 20 2021 Inactive metformin 1,000 mg tablet RxNorm: 915032 1 Tablet(s) Oral two times a day 08/19/20 20 2020 Inactive start on September 11, 2020 metformin 500 mg tablet RxNorm: 253059 1 Tablet(s) Oral two times a day take with 500mg to equal 1000mg 08/19/20 20 2019 Inactive gabapentin 300 mg capsule RxNorm: 204419 TAKE 1 CAPSULE BY MOUTH THREE TIMES DAILY 07/11/20 20 2020 Inactive cetirizine 10 mg tablet RxNorm: 9206102 TAKE (1) TABLET BY MOUTH DAILY 07/11/20 20 2020 Inactive metformin 500 mg tablet RxNorm: 931805 1 Tablet(s) Oral two times a day 07/08/20 20 2019 Inactive loperamide 2 mg tablet RxNorm: 998699 1 Tablet(s) Oral as needed take one tablet after each loose stool, maximum of 8 tablets in 24 hours 06/24/20 20 2021 Inactive Sudafed 12 Hour 120 mg tablet,extended release RxNorm: 0174013 TAKE 1 TABLET BY MOUTH EVERY 12 HOURS NEEDED 06/11/20 20 2019 Inactive hydrochlorothiazide 25 mg tablet RxNorm: 190680 TAKE (1) TABLET BY MOUTH EVERY DAY 06/11/20 20 2019 Inactive omeprazole 20 mg capsule,delayed release RxNorm: 236194 TAKE 1 CAPSULE BY MOUTH EVERY DAY 05/14/20 20 2020 Inactive metformin 500 mg tablet RxNorm: 923061 1 Tablet(s) Oral every day 05/12/20 20 2019 Inactive True Metrix Glucose Test Strip RxNorm: 1 Test Strips Miscellaneous two times a day as needed 04/17/20 No Stop Date Active metformin 500 mg tablet RxNorm: 762294 1 Tablet(s) Oral every day 04/17/20 20 2019 Inactive diclofenac sodium 75 mg tablet,delayed release RxNorm: 018141 1 Tablet(s) PO BID 04/14/20 20 2021 Inactive This refill negates all other refills of this medication Sudafed 12 Hour 120 mg tablet,extended release RxNorm: 6186607 TAKE 1 TABLET BY MOUTH EVERY 12 HOURS NEEDED 03/14/20 20 2019 Inactive True Metrix Glucose Test Strip RxNorm: 1 Test Strips Miscellaneous every morning 03/13/20 20 2019 Inactive 100/container True Metrix Glucose Test Strip RxNorm: 1 Test Strips Miscellaneous QAM 02/22/20 20 2019 Inactive 100/container loperamide 2 mg tablet RxNorm: 207077 1 Tablet(s) Oral as needed take one tablet after each loose stool, maximum of 8 tablets in 24 hours 02/22/20 20 2019 Inactive cetirizine 10 mg tablet RxNorm: 1357186 1 Tablet(s) PO daily 01/17/20 20 2019 Inactive loperamide 2 mg tablet RxNorm: 594062 1 Tablet(s) Oral as needed take one tablet after each loose stool, maximum of 8 tablets in 24 hours 01/17/20 20 2019 Inactive quetiapine 100 mg tablet RxNorm: 797252 1 Tablet(s) Oral every night at bedtime 01/17/20 20 2019 Inactive levothyroxine 50 mcg tablet RxNorm: 702297 1 Tablet(s) PO daily 01/17/20 20 2020 Inactive gabapentin 300 mg capsule RxNorm: 880293 1 Capsule(s) PO TID 01/17/20 20 2019 Inactive levothyroxine 50 mcg tablet RxNorm: 413867 1 Tablet(s) PO daily 01/15/20 20 2019 Inactive lisinopril 2.5 mg tablet RxNorm: 512706 1 Tablet(s) PO daily 01/15/20 20 2020 Inactive gabapentin 300 mg capsule RxNorm: 340241 1 Capsule(s) PO TID 01/15/20 20 2019 Inactive cetirizine 10 mg tablet RxNorm: 3422821 1 Tablet(s) PO daily 01/15/20 20 2019 Inactive Singulair 10 mg tablet RxNorm: 606017 1 Tablet(s) PO daily 01/15/20 20 2020 Inactive gentamicin 0.3 % eye drops RxNorm: 485295 1 Drop(s) ophthalmic (eye) four times a day 12/29/19 20 2019 Inactive gentamicin 0.3 % eye drops RxNorm: 358099 1 Drop(s) ophthalmic (eye) four times a day 12/29/19 20 2019 Inactive gentamicin 0.3 % eye drops RxNorm: 333299 1 Drop(s) ophthalmic (eye) four times a day 12/29/19 20 2019 Inactive hydrochlorothiazide 25 mg tablet RxNorm: 379235 1 Tablet(s) Oral every day 12/21/19 20 2019 Inactive Sudafed 12 Hour 120 mg tablet,extended release RxNorm: 4747087 TAKE (1) TABLET BY MOUTH EVERY 12 HOURS NEEDED 12/21/19 20 2019 Inactive loperamide 2 mg tablet RxNorm: 863570 1 Tablet(s) Oral as needed take one tablet after each loose stool, maximum of 8 tablets in 24 hours 12/11/19 20 2019 Inactive loperamide 2 mg tablet RxNorm: 272278 1 Tablet(s) Oral as needed take one tablet after each loose stool, maximum of 8 tablets in 24 hours 12/11/19 20 2019 Inactive atorvastatin 40 mg tablet RxNorm: 750563 1 Tablet(s) Oral every day 11/29/19 20 2020 Inactive quetiapine 100 mg tablet RxNorm: 055095 1 Tablet(s) Oral every night at bedtime 11/28/19 20 2019 Inactive sertraline 100 mg tablet RxNorm: 543707 1 Tablet(s) Oral 11/28/19 20 2019 Inactive omeprazole 20 mg capsule,delayed release RxNorm: 156898 1 Capsule(s) Oral every day 11/20/19 20 2019 Inactive amoxicillin 250 mg capsule RxNorm: 961930 1 Capsule(s) Oral three times a day 11/07/19 20 2019 Inactive multivitamin with iron-mineral tablet RxNorm: 1 Tablet(s) Oral every day 10/29/19 20 2021 Inactive cetirizine 10 mg tablet RxNorm: 4969725 1 Tablet(s) PO daily 10/20/19 20 2019 Inactive This refill negates all other refills of this medication. Please do not auto refill Singulair 10 mg tablet RxNorm: 407715 1 Tablet(s) PO daily 10/20/192019 Inactive This refill negates all other refills of this medication gabapentin 300 mg capsule RxNorm: 061459 1 Capsule(s) PO TID 10/20/192019 Inactive lisinopril 2.5 mg tablet RxNorm: 473347 1 Tablet(s) PO daily 10/20/19 20 2019 Inactive levothyroxine 50 mcg tablet RxNorm: 610356 1 Tablet(s) PO daily 10/20/192019 Inactive This refill negates all other refills of this medication fenugreek seed extract 500 mg capsule RxNorm: 1 Capsule(s) Oral three times a day 10/17/19 20 2021 Inactive hydrochlorothiazide 25 mg tablet RxNorm: 476563 1 Tablet(s) Oral every day 10/17/19 20 2019 Inactive Alcohol Prep Pads RxNorm: 058676 1 Patch TOP QAM 10/16/19 20 2020 Inactive loperamide 2 mg tablet RxNorm: 133018 1 Tablet(s) Oral as needed take one [...] 2019 Inactive hydrochlorothiazide 25 mg tablet RxNorm: 550876 1 Tablet(s) Oral every day 09/19/202019 Inactive Sudafed 12 Hour 120 mg tablet,extended release RxNorm: 2001864 1 Tablet(s) Oral every 12 hours as needed 09/11/20 19 2018 Inactive omeprazole 20 mg capsule,delayed release RxNorm: 553809 1 Capsule(s) Oral every day 09/07/20 19 2019 Inactive Sudafed 12 Hour 120 mg tablet,extended release RxNorm: 7838762 1 Tablet(s) Oral every 12 hours as needed 09/04/20 19 2018 Inactive pantoprazole 40 mg tablet,delayed release RxNorm: 787796 1 Tablet(s) Oral every day 08/24/202018 Inactive discontinue any other H2Blkr. and PPI albuterol sulfate 2.5 mg/3 mL (0.083 %) solution for nebulization RxNorm: 234309 1 Vial Inhalation every four hours as needed as needed for dyspnea 08/17/202019 Inactive 60/box. This refill negates all other refills of this medication. Please do not fill early. Please do not auto refill. Symbicort 160 mcg-4.5 mcg/actuation HFA aerosol inhaler RxNorm: 0310988 2 Puff(s) INH BID 08/17/20 No Stop Date Active Alcohol Prep Pads RxNorm: 205870 1 Patch TOP QAM 08/17/20 19 2019 Inactive Ventolin HFA 90 mcg/actuation aerosol inhaler RxNorm: 965998 2 Puff(s) INH QID 08/09/20 19 2019 Inactive Please do not fill early. Please do not auto refill. This refill negates all other refills of this medication True Metrix Glucose Test Strip RxNorm: 1 Test Strips Miscellaneous QAM 08/09/20 19 2019 Inactive 100/container atorvastatin 40 mg tablet RxNorm: 964882 1 Tablet(s) Oral every day 07/04/20 19 2019 Inactive levmetamfetamine 50 mg nasal inhaler RxNorm: 1 Unit(s) NASAL Q3-4H Do not use more than every 3 hours or 8 times/24hours 06/26/20 19 2021 Inactive Please do not auto refill. This refill negates all other refills of this medication buspirone 7.5 mg tablet RxNorm: 542287 1 Tablet(s) PO BID 06/26/20 19 2020 Inactive This refill negates all other refills of this medication hydrochlorothiazide 12.5 mg tablet RxNorm: 980036 1 Tablet(s) PO QAM 06/26/20 19 2019 Inactive Ventolin HFA 90 mcg/actuation aerosol inhaler RxNorm: 764411 2 Puff(s) INH QID 06/26/20 19 2018 Inactive Please do not fill early. Please do not auto refill. This refill negates all other refills of this medication Singulair 10 mg tablet RxNorm: 204630 1 Tablet(s) PO daily 06/26/20 19 2019 Inactive This refill negates all other refills of this medication cetirizine 10 mg tablet RxNorm: 2877559 1 Tablet(s) PO daily 06/26/20 19 2019 Inactive This refill negates all other refills of this medication. Please do not auto refill levothyroxine 50 mcg tablet RxNorm: 093018 1 Tablet(s) PO daily 06/26/20 19 2019 Inactive This refill negates all other refills of this medication diclofenac sodium 75 mg tablet,delayed release RxNorm: 560757 1 Tablet(s) PO BID 06/26/20 19 2019 Inactive This refill negates all other refills of this medication ranitidine 150 mg tablet RxNorm: 489747 1 Tablet(s) PO BID 06/26/20 19 2018 Inactive This refill negates all other refills of this medication Calcium 600-D3 Plus (mag-zinc) 600 mg calcium-800 unit-50 mg tablet RxNorm: 1 Tablet(s) PO daily take an additonal tablet for itching. 06/26/20 19 2018 Inactive This refill negates all other refills of this medication albuterol sulfate 2.5 mg/3 mL (0.083 %) solution for nebulization RxNorm: 802474 1 Vial INH QID 06/26/20 19 2018 Inactive 60/box. This refill negates all other refills of this medication. Please do not fill early. Please do not auto refill. lisinopril 2.5 mg tablet RxNorm: 392618 1 Tablet(s) PO daily 06/21/20 19 2019 Inactive gabapentin 300 mg capsule RxNorm: 173888 1 Capsule(s) PO TID 06/21/20 19 2019 Inactive atorvastatin 20 mg tablet RxNorm: 168744 1 Tablet(s) PO QHS 06/07/20 19 2018 Inactive This refill negates all other refills of this medication TRUEplus Lancets 30 gauge RxNorm: 1 Lancets Miscellaneous QAM 05/29/20 19 2018 Inactive 100/box gabapentin 300 mg capsule RxNorm: 272385 1 Capsule(s) PO TID 05/03/20 19 2018 Inactive Flnickolas Complete (iron) 18 mg iron chewable tablet RxNorm: 1 Tablet(s) PO daily 04/04/20 19 2021 Inactive This refill negates all other refills of this medication gabapentin 300 mg capsule RxNorm: 315373 1 Capsule(s) PO TID as needed 02/01/20 19 2018 Inactive True Metrix Glucose Test Strip RxNorm: 1 Test Strips Miscellaneous QAM 02/01/20 19 2018 Inactive 100/container Alcohol Prep Pads RxNorm: 681576 1 Patch TOP QAM 02/01/20 19 2018 Inactive TRUEplus Lancets 30 gauge RxNorm: 1 Lancets Miscellaneous QAM 02/01/20 19 2018 Inactive 100/box lisinopril 2.5 mg tablet RxNorm: 655620 1 Tablet(s) PO daily 12/28/19 19 2018 Inactive ranitidine 150 mg tablet RxNorm: 796675 1 Tablet(s) PO BID 10/21/192018 Inactive This refill negates all other refills of this medication albuterol sulfate 2.5 mg/3 mL (0.083 %) solution for nebulization RxNorm: 888557 1 Vial INH QID 10/21/192018 Inactive 60/box. [...] this medication gabapentin 300 mg capsule RxNorm: 906994 1 Capsule(s) PO TID as needed 10/21/19 19 2018 Inactive atorvastatin 20 mg tablet RxNorm: 936340 1 Tablet(s) PO QHS 10/21/19 19 2018 Inactive This refill negates all other refills of this medication trazodone 50 mg tablet RxNorm: 903818 1 Tablet(s) PO QHS 10/21/19 19 2018 Inactive This refill negates all other refills of this medication Ventolin HFA 90 mcg/actuation aerosol inhaler RxNorm: 520574 2 Puff(s) INH QID 10/21/192018 Inactive Please do not fill early. Please do not auto refill. This refill negates all other refills of this medication Calcium 600-D3 Plus 600 mg calcium-800 unit-50 mg tablet RxNorm: 1 Tablet(s) PO daily take an additonal tablet for itching. 10/21/19 19 2018 Inactive This refill negates all other refills of this medication Singulair 10 mg tablet RxNorm: 872960 1 Tablet(s) PO daily 10/21/19 19 2018 Inactive This refill negates all other refills of this medication buspirone 7.5 mg tablet RxNorm: 784658 1 Tablet(s) PO BID 10/21/19 19 2018 Inactive This refill negates all other refills of this medication diclofenac sodium 75 mg tablet,delayed release RxNorm: 468667 1 Tablet(s) PO BID 10/21/19 19 2018 Inactive This refill negates all other refills of this medication hydrochlorothiazide 12.5 mg tablet RxNorm: 606673 1 Tablet(s) PO QAM 10/21/19 19 2018 Inactive metoprolol succinate ER 50 mg tablet,extended release 24 hr RxNorm: 439274 1 Tablet(s) PO daily 10/21/192018 Inactive This refill negates all other refills of this medication levothyroxine 50 mcg tablet RxNorm: 779446 1 Tablet(s) PO daily 10/21/19 19 2018 Inactive This refill negates all other refills of this medication cetirizine 10 mg tablet RxNorm: 2037169 1 Tablet(s) PO daily 10/21/192018 Inactive This refill negates all other refills of this medication. Please do not auto refill Flintstones Complete (iron) 18 mg iron chewable tablet RxNorm: 1 Tablet(s) PO daily 10/21/192018 Inactive This refill negates all other refills of this medication buspirone 7.5 mg tablet RxNorm: 305359 1 Tablet(s) PO BID 10/12/192018 Inactive cetirizine 10 mg tablet RxNorm: 4419305 1 Tablet(s) PO daily 09/28/202018 Inactive Guaiasorb DM 10 mg-100 mg/5 mL oral liquid RxNorm: 684769 10 Milliliter(s) PO As needed every 4 hr 09/24/202018 Inactive Vicks Vaporub 4.7 %-1.2 %-2.6 % topical ointment RxNorm: 2066750 1 Application TOP TID 09/24/20 18 2018 Inactive levmetamfetamine 50 mg nasal inhaler RxNorm: 1 Unit(s) NASAL Q3-4H 09/24/20 18 2017 Inactive sertraline 50 mg tablet RxNorm: 014134 1 Tablet(s) PO daily 09/09/20 18 2018 Inactive Please note dose trazodone 50 mg tablet RxNorm: 630280 1 Tablet(s) PO QHS 09/06/20 18 2018 Inactive sertraline 50 mg tablet RxNorm: 053947 1 Tablet(s) PO daily 09/06/20 18 2017 Inactive amoxicillin 500 mg tablet RxNorm: 963203 1 Tablet(s) PO Q12H 08/31/20 18 2017 Inactive albuterol sulfate 2.5 mg/3 mL (0.083 %) solution for nebulization RxNorm: 538891 1 Vial INH QID 08/10/20 18 2018 Inactive 60/box. Please do not fill early. Please do not auto refill. Prozac 10 mg capsule RxNorm: 448535 1 Capsule(s) PO daily 08/09/20 18 2017 Inactive buspirone 7.5 mg tablet RxNorm: 240883 1 Tablet(s) PO BID 08/09/20 18 2018 Inactive gabapentin 300 mg capsule RxNorm: 247147 1 Capsule(s) PO TID as needed 08/01/20 18 2018 Inactive hydrochlorothiazide 12.5 mg tablet RxNorm: 176895 1 Tablet(s) PO QAM 08/01/20 18 2018 Inactive ranitidine 150 mg tablet RxNorm: 094311 1 Tablet(s) PO BID 08/01/20 18 2018 Inactive Macrobid 100 mg capsule RxNorm: 674485 1 Capsule(s) PO Q12H 06/21/20 18 2017 Inactive Singulair 10 mg tablet RxNorm: 043573 1 Tablet(s) PO daily 06/14/20 18 2018 Inactive Ventolin HFA 90 mcg/actuation aerosol inhaler RxNorm: 1824857 2 Puff(s) INH QID 06/14/20 18 2018 Inactive Singulair 10 mg tablet RxNorm: 788921 1 Tablet(s) PO daily 06/14/20 18 2017 Inactive buspirone 7.5 mg tablet RxNorm: 404501 1 Tablet(s) PO BID 06/14/20 18 2017 Inactive Prozac 10 mg capsule RxNorm: 858253 1 Capsule(s) PO daily 06/14/20 18 2017 Inactive Neilmed Pediatric Sinus Rinse Refill packet RxNorm: 1 Unit Dose NASAL PRN 05/31/20 18 2021 Inactive diclofenac sodium 75 mg tablet,delayed release RxNorm: 692437 1 Tablet(s) PO BID 05/31/20 18 2017 Inactive lisinopril 2.5 mg tablet RxNorm: 277598 1 Tablet(s) PO daily 05/31/20 18 2017 Inactive metoprolol succinate ER 50 mg tablet,extended release 24 hr RxNorm: 419509 1 Tablet(s) PO daily 05/31/20 18 2017 Inactive levothyroxine 50 mcg tablet RxNorm: 050645 1 Tablet(s) PO daily 05/31/20 18 2017 Inactive TRUEplus Lancets 30 gauge RxNorm: 1 Lancets Miscellaneous QAM 05/31/20 18 2017 Inactive 100/box Ventolin HFA 90 mcg/actuation aerosol inhaler RxNorm: 325623 2 Puff(s) INH QID 05/31/20 18 2017 Inactive Aleve 220 mg capsule RxNorm: 0699751 1 Capsule(s) PO BID 05/31/20 18 2018 Inactive ranitidine 150 mg tablet RxNorm: 253482 1 Tablet(s) PO BID 05/31/20 18 2017 Inactive gabapentin 300 mg capsule RxNorm: 236111 1 Capsule(s) PO TID as needed 05/31/20 18 2017 Inactive atorvastatin 20 mg tablet RxNorm: 871820 1 Tablet(s) PO QHS 05/31/20 18 2017 Inactive True Metrix Glucose Test Strip RxNorm: 1 Test Strips Miscellaneous QA 05/31/20 18 2017 Inactive 50/container Calcium 600-D3 Plus 600 mg calcium-800 unit-50 mg tablet RxNorm: 1 Tablet(s) PO daily take an additonal tablet for itching. 05/31/20 18 2017 Inactive hydrochlorothiazide 12.5 mg tablet RxNorm: 421598 1 Tablet(s) PO QAM 05/31/20 18 2017 Inactive Flintstones Complete (iron) 18 mg iron chewable tablet RxNorm: 1 Tablet(s) PO daily 05/31/20 18 2017 Inactive d-mannose oral powder RxNorm: PO 18 2021 Inactive True Metrix Glucose Meter RxNorm: miscellaneous 08/17/20 19 2018 Inactive sertraline 50 mg tablet RxNorm: 084574 1 Tablet(s) PO daily 11/28/19 20 2019 Inactive loperamide 2 mg tablet RxNorm: 029565 oral 09/29/20 19 2018 Inactive Symbicort 160 mcg-4.5 mcg/actuation HFA aerosol inhaler RxNorm: 6092742 2 Puff(s) INH BID 08/17/20 19 2018 [...] VACP 1 Fall Risk Assessment SNOMED CT: 53474303 4 CPT-4: DFRA01/13/2021emmes Fany AssessmentCPT-4: DSWA12/17/2020Urinalysis, dip stickCPT-4: 2369122Patient Health QuestionnaireCPT-4: DPHQ 08/19/2020ElectrocardiogramCPT-4: 8356728Tobacco Assessment/Screening CPT-4: TCA01/01/2020Fall Risk AssessmentSNOMED CT: 221325616 CPT-4: DFRA01/01/2020Functional AssessmentCPT-4: DFA01/01/2020[place] Fany AssessmentCPT-4: DSWA11/28/2019Patient Health QuestionnaireCPT-4: DPHQ11/28/2019 [place] Fany AssessmentCPT-4: DSWA10/17/2019HypertensionCPT-4: HTN10/17/[address]: 9[address]108453 CPT-4: DFRA09/19/2019Functional AssessmentCPT-4: DFA111/20/2018Urinalysis, dip stickCPT-4: 8992305Tobacco Assessment/ScreeningCPT-4: TCA05/24/2019 Patient Health QuestionnaireCPT-4: DPHQ05/24/2019AHA/REBECCA Classification AssessmentCPT-4: DAHA04/25/2019Controlled Substance ReportCPT-4: CTRSU04/25/2019 Urinalysis, dip stickCPT-4: [id number]/28/2019Urinalysis, dip stickCPT-4: 80230 03/28/20195622N9G-LkmyyorwqupievqCXO-7: 71623QmvvnqcP4Q-YfknwljeydinyitAXQ-5: 16530 RrudadvB8G-OngraihqvocszhyCIC-9: 51282HofkrbgV7Y-YpezkbhvjzuoqmmCQZ-9: 42082 HxpneqgM5Q-YnmjntvuvvbtenxZOR-5: 50555JekvqxmK5Z-HuhmmjfaplxtvftCZM-6: 47022 XkysnyjV3S-FtrlmrvrnfymmlnBKC-0: 46120PxlbaotFytzbjzjbv ReferralSNOMED CT: [id number] CPT-4: C92Ymxbseq Reason For Visit Reason For Visit Effective Dates Notes diarrhea 08/13/2021 Interim health update 08/13/2021 Encounters Encounter Performer Location Location Address Codes Magdi e ([id number]) (EST PT) [place] [facility] [facility]LE[facility] VISIT Diagnosis: Type 2 diabetes mellitus with peripheral neuropathy[ICD10: E11.42] Diagnosis: GERD (gastroesophageal reflux disease)[ICD10: K21.9] Diagnosis: Hyperlipidemia, unspecified[ICD10: E78.5] Diagnosis: Diarrhea[ICD10: R19.7]Chivo Johnson [address] [facility] [address] [place], [place] [address]ENS-0: [id number]/13/2020 Plan of Care Planned Activity Notes Codes Status Date Visit Plan: Video and audio call using Myla R19.7-787.91 Diarrhea intermittent symptoms over the past [...] to this medication uses monitor [employer] through [facility]-participant of [facility] on demand 05/20/2021 Hemoglobin A1C 5.4 stable 10/17/2019 [place] Fany /10-instructed on good daily foot care [...] previously discussed stress management routine follow up [place] [facility] 03/13/2021 PHQ 9 Score 4 Sertraline 200mg daily 04/01/2021 Functional Assessment independent with ADLs R63.0-783.0 Anorexia consuming 1 -2 meals per day advised to continue to try small, more frequent food intake, discussed limiting carbonated beverages d iscussed benefits of [place] Instant Breakfast not using note weight has remained stable over thepast couple months-will continue to monitor I10-401.9 Essential (primary) hypertension I11.0-402.91Hypertensive heart disease with heart failure cont hctz and lisinopril 04/01/2021 HTN assessment complete discussed lifestyle modification including weight loss and limiting sodium intake 05/20/2021 GFR >60 [place] lab didn't provide exact number 05/14/2020 EKG [...] cervix most recent pap in June 2020-[facility]-reports pap negative Z01.89-V72.85 Encounter for screening for tobacco use 03/13/2021 Tobacco screen complete-patient denies ever smoking Z12.31-V76.12 (Z12.31-V76.12) Encounter for screening mammogram for malignant neoplasm of breast Z12.11-V76.51 (Z12.11-V76.51) Encounter for screening for malignant neoplasm of colon Preventative testing not indicated due to age *I reviewed the most recent CDC guidelines regarding Covid-19/Coronavirus with the patient/caregiver/designee 1Patient Education: Patient Medication PckwpqkAlaqumaot72/11/2021 Patient Education: [employer] Well[employer] Premier Savings XtxlZtxgcqupi01/11/2021 Patient Education: levothyroxine- Opt[employer] Coupon [id number] https://www.FoxyTunes/samplemd/resources/getResource/61/[email or web address]-[email or web address]-[email or web address].dxqChyaqklaj45/11/2021ppointment: Chivo Bishop WPtel: [address] [place] [address] USETV1ppointment: Chivo Bishop WPtel: [address] [place] [address] GVNXRI4306/10/2021ppointment: Anna Culver WPtel: [address] [place] [address] USETV06/02/2021ppointment: Chivo Bishop WPtel: [address] [address] USETV05/20/2021ppointment: Anna Culver WPtel: [address] [place] [address] USETV04/28/2021ppointment: Chivo Bishop WPtel: [phone] [place] [address] USETV04/15/2021ppointment: nAna Culver WPtel: [phone] [place] [address] [id number]: Anna Culver WPtel: [phone] [place] [address] USET03/24/2021ppointment: Anna Culver WPtel: [phone] [place] [address] USETV03/13/2021ppointment: Anna Culver WPtel: [phone] [place] [address] [id number]: Chivo Bishop WPtel: [address] [place] [address] [id number]: Anna Culver WPtel: [phone] [place] [address] USETV01/13/2021ppointment: nAna Culver WPtel: [phone] [place] [address] [id number]: Chivo Bishop WPtel: [address] [place] [address] USETV11/28/2020ppointment: Anna Culver WPtel: [phone] [place] [address] USETV11/24/2020ppointment: Anna Culver WPtel: [phone] [place] [address] [place] [address] [id number]: Anna Culver WPtel: [phone] [place] [address] [address] [place] [address] [id number]/25/2019Appointment: Anna Culver WPtel: [phone] [place] [address] USETV110/26/2019Appointment: Anna Culver WPtel: [phone] [place] [address] USETV110/19/2019Appointment: Anna Culver WPtel: [address] [place] [address] USETV1Appointment: Anna Culver WPtel: [address] [place] [address] USETV1Appointment: Gianna Birmingham MCtel: [address] [facility] [address] [id number] FNWSVQ1707/02/2020Appointment: Anna Culver WPtel: [address] [place] [address] [id number]: Anna Culver WPtel: [address] [place] [address] [place] [address] [id number]: Anna Culver WPtel: [phone] [place] [address] [place] [address] [id number]: Anna Culver WPtel: [phone] [place] [address] [id number]: Anna Culver WPtel: [phone] [place] [address] [place] [address] [id number]: Anna Culver WPtel: [address] [address] [id number]: Anna Culver WPtel: [address] [facility] [address] [place] [address] [id number]: Palomo Anna WPtel: [address] [place] [address] [id number]: Anna Culver WPtel: [address] [place] [address] [id number]: Anna Culver WPtel: [address] [place] [address] [id number]/20/2018Appointment: Sudha Hernadez WPtel: [address] [facility] [address] [id number]: Sudha Hernadez WPtel: [address] [facility] [address] [id number]: Charlene Oropeza WPtel: [address] [facility] [address] [id number]: Enedelia Delgado45Appointment: Charlene Oropeza WPtel: [address] [facility] [address] [id number]: Rasta Palafox WPtel: [address] [facility] [address] [id number]: Rasta Palafox WPtel: [address] [facility] [address] [id number]: Rasta Palafox WPtel: [address] [facility] [address] [id number]: Rasta Palafox WPtel: [address] [facility] [address] [id number]: Pending Gynecology Referral InformationReferral ProcessedReferral: Pending Pulmonology Referral InformationReferralProcessed Referral: Pending Psychiatry Referral InformationReferralInitiatedReferral: Pending Respiratory Services Referral InformationReferralInitiatedReferral: Pending Ophthalmology Referral InformationReferralInitiatedReferral: [facility] WPtel: [address] [place] [address] [address] [facility] USWriter placed a call out to the patient to notify her that it has been recommended that she be seenby 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 Patient agreed to be seen, does not have a provider of choice and no transportationissues. Logistics Analytics Manager faxed referral and clinical notes to [facility] in [place], [place] near the patient's home. Patient [...] seen and prefers a provider in the [place] or [place] area. Logistics Analytics Manager placed a call out to everyone listed in the area and the only location that was able to accept the patient's insurance was [place] [address] [place] [address] and spoke with Maylin. Maylin asked that the patient's referral, face sheet and visit notes be faxed to . Logistics Analytics Manager faxed over requested documents. Patient appointment confirmation letter generated and mailed to her home address. Patient to call to schedule an appointment.ProcessedReferral: [facility] WPtel: [address] [facility] [address] [id number] USPatient notified that it has been advised that she be seen by Neurology. Patient agreed to be seen and prefers to be seen by a provider in the [place], [place] area. Patient denies any concerns with transportation, and prefers to schedule her own appointment. Logistics Analytics Manager placed a call out to [facility] and spoke with Neeraj P: who confirmed that their office is able to acceptnew patients and the patient's insurance. After confirming the providers fax number, video games storywriter faxed over the patient's referral, and most [...] ? . Video and audio call using Myla R1.9-876.48 Diarrhea intermittent symptoms over the past few [...] demand 05/20/2021 Hemoglobin A1C 5.4; stable 10/17/2019 [place] Fany 7/10-instructed on good daily foot care [...] previously discussed stress management routine follow up [place] [facility] 03/13/2021 PHQ 9 Score 4 Sertraline 200mg daily 04/01/2021 Functional Assessment independent with ADLs R63.0-783.0 Anorexia consuming 1 -2 meals per day advised to continue to try small, more frequent food intake, discussed limiting carbonated beverages discussed benefits of [place] Instant Breakfast not using note weight has [...] cervix most recent pap in June 2020-[facility]-reports pap negative Z01.89-V72.85 Encounter for screening for [...]
--- OUTSIDE RECORDS SUMMARY | 2021-09-02 20:00 | XMS_ITS | CCD ---
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 Process Control Board Operator Name Role Phone Palomo KING, Anna Primary Care Provider Unav ailable Unavailable Chronic Care Management Unavaila ble Summary Purpose DataExchange Insurance Providers Payer name Policy type / Coverage type Covered green party ID Effective Begin Date Effective End Date [employer] [facility] [id number] Unknown Unknown Family history Mother Diagnosis Age [...] 05/31/2018 Education level Unknown Some High School 10th05/31/20181202PterdxiysxWuwgrkaBpfnvofwtn90/29/2018Tobacco historySNOMED CT: 019259530Yfw never smoked or chewed fmtxsaf6505/31/2018Alcohol historySNOMED CT: 648333689Gbuql drinks gkzaxyd1905/31/2018Has the patient ever used illegal drugs? UnknownHas never used illegal drugs05/31/2018DNR Order/ Advanced Directive UnknownFull Code05/31/2018 Allergies, Adverse Reactions, Alerts Substance Reaction Codes Entered Date Inactivated Date Status OxyContin itch, RxNorm: 735129 01/13/2021 No Inactive Da te Active *No known food allergies Gghejbp4409/06/2018No Inactive DateActiveMethylprednisolonehivesRxNorm: 6902 09/06/2018No Inactive DateActive Problems Condition Codes Effective Dates Condition St atus Diarrhea ICD-10: R19.7 ICD-9: 787.9111ctiveGERD (gastroesophageal reflux disease)ICD-10: K21.9 ICD-9: 530.8109/07/2019ActiveHyperlipidemia, unspecifiedICD-10: E78.5 ICD-9: 272.408ActiveType 2 diabetes mellitus with peripheral neuropathy ICD-10: E11.42 ICD-9: 250.6002ActiveDyspnea, unspecifiedICD-10: R06.00 ICD-9: 786.0905ActiveAdjustment disorder with mixed anxiety and depressed moodICD-10: F43.23 ICD-9: 309.2812ActiveCOVID-19 virus RNA test result positive at limit of detectionICD-10: U07.1 ICD-9: 079.8909/ctiveUpper respiratory infectionICD-10: J06.9 ICD-9: 465.908/ctiveChronic kidney disease, stage 2 (mild)ICD-10: N18.2 ICD-9: 585.201ctiveFamily history of seizuresICD-10: Z84.89 ICD-9: V19.807/1ActiveHypertensive heart disease with heart failureICD-10: I11.0 ICD-9: 402.9107/ActiveSyncope and collapseICD-10: R55 ICD-9: 780.ActiveAnorexiaICD-10: R63.0 ICD-9: 783.003/1ActivePost-traumatic stress disorder, unspecifiedICD-10: F43.10 ICD-9: 309.8112ActiveBlisterICD-10: T14.8XXA ICD-9: 919.2061ActiveObstructive sleep apnea (adult) (pediatric)ICD-10: G47.33 ICD-9: 327.2309/ActiveEncounter for screening for tobacco useICD-10: Z01.89 ICD-9: V72.8503ActiveElevated liver enzymesICD-10: R74.8 ICD-9: 790.504/ctiveHistory of bladder surgeryICD-10: Z98.890 ICD-9: V45.89041ActiveUrinary retention with incomplete bladder emptying ICD-10: R33.9 ICD-9: 788.21001/13/2021ctive(Z00.01-V70.0) Encounter for general adult medical examination with abnormal findingsICD-10: Z00.01 ICD-9: V70.004ctive(Z13.31-V79.0) Encounter for screening for depressionICD-10: Z13. ICD-9: V79.004ctiveEncounter for immunizationICD-10: Z23 ICD-9: V04.8109/06/2020InactiveEssential (primary) hypertensionICD-10: I10 ICD-9: 401.901InactiveApnea, not elsewhere classifiedICD-10: R06.81 ICD-9: 786.0305InactiveChest pain, unspecifiedICD-10: R07.9 ICD-9: 786.5002InactiveChronic kidney disease, unspecifiedICD-10: N18.9 ICD-9: 585.909/InactiveEncounter for immunizationICD-10: Z23 ICD-9: V03.907/InactiveEncounter for preprocedural cardiovascular examinationICD-10: Z01.810 ICD-9: V72.8106InactiveHeadacheICD-10: R51 ICD-9: 784.001InactiveOther skilled nursing (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ICD-10: Z79.899 ICD-9: V58.6907InactiveType 2 diabetes mellitus without complications ICD-10: E11.9 ICD-9: 250.0001InactiveWheezingICD-10: R06.2 ICD-9: 786.0711InactiveAbnormal urine findingICD-10: R82.90 ICD-9: 791.912ResolvedAbrasion of toeICD-10: S90.416A ICD-9: 917.005ResolvedPink eyeICD-10: H10.029 ICD-9: 372.0303/ResolvedRight wrist painICD-10: M25.531 ICD-9: 719.4308/09/2020ResolvedSinusitisICD-10: J32.9 ICD-9: 473.902ResolvedSuperficial burn of multiple sites of right hand, subsequent encounterICD-10: T23.191D ICD-9: V58.8902/1ResolvedUrinary tract infectionICD-10: N39.0 ICD-9: 599.012/ResolvedPolyneuropathy, unspecifiedICD-10: G62.9 ICD-9: 356.908ActiveEncounter for screening, unspecifiedICD-10: Z13.9 ICD-9: V82.912Active(Z12.4-V76.2) Encounter for screening for malignant neoplasm of cervixICD-10: Z12.4 ICD-9: V76.207/ActiveHypothyroidism, unspecifiedICD-10: E03.9 ICD-9: 244.912Active(Z12.11-V76.51) Encounter for screening for malignant neoplasm of colonICD-10: Z12.11 ICD-9: V76.5107/Active(Z12.31-V76.12) Encounter for screening mammogram for malignant neoplasm of breastICD-10: Z12.31 ICD-9: V76.1207/ActiveAdult BMI 50.0-59.9 kg/sq mICD-10: Z68.43 ICD-9: V85.4308/ActiveFecal incontinenceICD-10: R15.9 ICD-9: 787.6003ActiveMixed incontinenceICD-10: N39.46 ICD-9: 788.3308ActiveAsthmaICD-10: J45.909 ICD-9: 493.9011ActivePatient Not SeenICD-10: UXZ.01 ICD-9: XZ0.107ActiveAbnormal electrocardiogram [ECG] [EKG]ICD-10: R94.31 ICD-9: 794.31005/30/2018ActiveEdema, unspecifiedICD-10: R60.9 ICD-9: 782.310ActiveLong term (current) use of non-steroidal anti- inflammatories (NSAID)ICD-10: Z79.1 ICD-9: V58.64006/13/2018Active Medications Medication Codes Instructions Start Date Stop Date Status Fill Instructions Easy Touch Alcohol Prep Pads RxNorm: 721478 USE DIRECTED EACH MORNING 09/03/20 21 2021 Inactive Probiotic 10 billion cell capsule RxNorm: 2122382 Take 1 Capsule(s) Oral every day 08/13/20 21 2021 Inactive levothyroxine 50 mcg tablet RxNorm: 374381 Take 1 Tablet(s) Oral every day 08/13/20 21 2020 Inactive Acid 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 Operator (famotidine) 20 mg tablet RxNorm: 769227 Take 1 Tablet(s) Oral every morning 08/13/20 21 2020 Inactive Heartburn Relief (famotidine) 10 mg tablet RxNorm: 400694 Take 1 Tablet(s) Oral QAM 08/07/20 21 2020 Inactive levothyroxine 50 mcg tablet RxNorm: 749469 Take 1 Tablet(s) Oral QD 08/07/20 21 2020 Inactive metformin 1,000 mg tablet RxNorm: 849972 1 Tablet(s) Oral two times a day 07/16/20 21 2021 Inactive Singulair 10 mg tablet RxNorm: 099096 TAKE (1) TABLET BY MOUTH DAILY 07/16/20 21 2020 Inactive lisinopril 2.5 mg tablet RxNorm: 671494 Take 1 Tablet(s) Oral every day 07/11/20 21 2020 Inactive hydrochlorothiazide 25 mg tablet RxNorm: 964909 Take 1 Tablet(s) Oral every day 06/12/20 21 2020 Inactive ondansetron 4 mg disintegrating tablet RxNorm: 138638 1 Tablet(s) Oral two times a day 06/10/20 21 2020 Inactive Sudafed 12 Hour 120 mg tablet,extended release RxNorm: 2215890 TAKE 1 TABLET BY MOUTH EVERY 12 HOURS NEEDED 06/01/20 21 2021 Inactive Heartburn Relief (famotidine) 10 mg tablet RxNorm: 766064 Take 1 Tablet(s) Oral every morning 05/07/20 21 2020 Inactive omeprazole 20 mg capsule,delayed release RxNorm: 499686 1 Capsule(s) Oral every evening 04/03/20 21 2020 Inactive sertraline 100 mg tablet RxNorm: 293368 2 Tablet(s) Oral every day 03/13/20 21 2020 Inactive levothyroxine 50 mcg tablet RxNorm: 215888 TAKE (1) TABLET BY MOUTH DAILY 02/04/20 21 2020 Inactive metformin 500 mg tablet RxNorm: 780457 1 Tablet(s) Oral two times a day take with 500mg to equal 1000mg 01/14/20 21 2020 Inactive gabapentin 300 mg capsule RxNorm: 968852 TAKE 1 CAPSULE BY MOUTH THREE TIMES A DAY 01/14/20 21 2020 Inactive lisinopril 2.5 mg tablet RxNorm: 491951 TAKE 1 TABLET BY MOUTH DAILY 01/06/20 21 2020 Inactive gabapentin 300 mg capsule RxNorm: 373432 TAKE 1 CAPSULE BY MOUTH THREE TIMES A DAY 01/06/20 21 2020 Inactive Singulair 10 mg tablet RxNorm: 284196 TAKE (1) TABLET BY MOUTH DAILY 01/06/20 21 2020 Inactive metformin 1,000 mg tablet RxNorm: 657975 1 Tablet(s) Oral two times a day 01/06/20 21 2020 Inactive atorvastatin 40 mg tablet RxNorm: 930425 1 Tablet(s) Oral every day 12/06/19 21 2020 Inactive omeprazole 20 mg capsule,delayed release RxNorm: 162409 1 Capsule(s) Oral every evening 11/24/19 21 2020 Inactive famotidine 10 mg tablet RxNorm: 165832 1 Tablet(s) Oral every morning 11/24/19 21 2020 Inactive Alcohol Prep Pads RxNorm: 901278 USE EACH MORNING 10/14/19 21 2020 Inactive omeprazole 20 mg capsule,delayed release RxNorm: 524761 1 Capsule(s) Oral two times a day 10/13/19 21 2021 Inactive omeprazole 20 mg capsule,delayed release RxNorm: 664648 TAKE 1 CAPSULE BY MOUTH EVERY DAY 10/08/19 21 2021 Inactive Macrobid 100 mg capsule RxNorm: 045118 1 Capsule(s) Oral every 12 hours with food 10/01/20 20 2020 Inactive omeprazole 20 mg capsule,delayed release RxNorm: 624646 1 Capsule(s) Oral two times a day 09/24/20 20 2021 Inactive metformin 1,000 mg tablet RxNorm: 101181 1 Tablet(s) Oral two times a day 08/19/20 20 2020 Inactive start on September 11, 2020 metformin 500 mg tablet RxNorm: 227738 1 Tablet(s) Oral two times a day take with 500mg to equal 1000mg 08/19/20 20 2019 Inactive gabapentin 300 mg capsule RxNorm: 349831 TAKE 1 CAPSULE BY MOUTH THREE TIMES DAILY 07/11/20 20 2020 Inactive cetirizine 10 mg tablet RxNorm: 5561135 TAKE (1) TABLET BY MOUTH DAILY 07/11/20 20 2020 Inactive metformin 500 mg tablet RxNorm: 571156 1 Tablet(s) Oral two times a day 07/08/20 20 2019 Inactive loperamide 2 mg tablet RxNorm: 844696 1 Tablet(s) Oral as needed take one tablet after each loose stool, maximum of 8 tablets in 24 hours 06/24/20 20 2021 Inactive Sudafed 12 Hour 120 mg tablet,extended release RxNorm: 3081972 TAKE 1 TABLET BY MOUTH EVERY 12 HOURS NEEDED 06/11/20 20 2019 Inactive hydrochlorothiazide 25 mg tablet RxNorm: 893678 TAKE (1) TABLET BY MOUTH EVERY DAY 06/11/20 20 2019 Inactive omeprazole 20 mg capsule,delayed release RxNorm: 241855 TAKE 1 CAPSULE BY MOUTH EVERY DAY 05/14/20 20 2020 Inactive metformin 500 mg tablet RxNorm: 228157 1 Tablet(s) Oral every day 05/12/20 20 2019 Inactive True Metrix Glucose Test Strip RxNorm: 1 Test Strips Miscellaneous two times a day as needed 04/17/20 No Stop Date Active metformin 500 mg tablet RxNorm: 359660 1 Tablet(s) Oral every day 04/17/20 20 2019 Inactive diclofenac sodium 75 mg tablet,delayed release RxNorm: 754967 1 Tablet(s) PO BID 04/14/20 20 2021 Inactive This refill negates all other refills of this medication Sudafed 12 Hour 120 mg tablet,extended release RxNorm: 4540352 TAKE 1 TABLET BY MOUTH EVERY 12 HOURS NEEDED 03/14/20 20 2019 Inactive True Metrix Glucose Test Strip RxNorm: 1 Test Strips Miscellaneous every morning 03/13/20 20 2019 Inactive 100/container True Metrix Glucose Test Strip RxNorm: 1 Test Strips Miscellaneous QAM 02/22/20 20 2019 Inactive 100/container loperamide 2 mg tablet RxNorm: 003486 1 Tablet(s) Oral as needed take one tablet after each loose stool, maximum of 8 tablets in 24 hours 02/22/20 20 2019 Inactive cetirizine 10 mg tablet RxNorm: 7870820 1 Tablet(s) PO daily 01/17/20 20 2019 Inactive loperamide 2 mg tablet RxNorm: 758864 1 Tablet(s) Oral as needed take one tablet after each loose stool, maximum of 8 tablets in 24 hours 01/17/20 20 2019 Inactive quetiapine 100 mg tablet RxNorm: 912099 1 Tablet(s) Oral every night at bedtime 01/17/20 20 2019 Inactive levothyroxine 50 mcg tablet RxNorm: 350170 1 Tablet(s) PO daily 01/17/20 20 2020 Inactive gabapentin 300 mg capsule RxNorm: 766367 1 Capsule(s) PO TID 01/17/20 20 2019 Inactive levothyroxine 50 mcg tablet RxNorm: 265482 1 Tablet(s) PO daily 01/15/20 20 2019 Inactive lisinopril 2.5 mg tablet RxNorm: 277660 1 Tablet(s) PO daily 01/15/20 20 2020 Inactive gabapentin 300 mg capsule RxNorm: 152287 1 Capsule(s) PO TID 01/15/20 20 2019 Inactive cetirizine 10 mg tablet RxNorm: 3174887 1 Tablet(s) PO daily 01/15/20 20 2019 Inactive Singulair 10 mg tablet RxNorm: 547655 1 Tablet(s) PO daily 01/15/20 20 2020 Inactive gentamicin 0.3 % eye drops RxNorm: 055592 1 Drop(s) ophthalmic (eye) four times a day 12/29/19 20 2019 Inactive gentamicin 0.3 % eye drops RxNorm: 791771 1 Drop(s) ophthalmic (eye) four times a day 12/29/19 20 2019 Inactive gentamicin 0.3 % eye drops RxNorm: 070739 1 Drop(s) ophthalmic (eye) four times a day 12/29/19 20 2019 Inactive hydrochlorothiazide 25 mg tablet RxNorm: 821282 1 Tablet(s) Oral every day 12/21/19 20 2019 Inactive Sudafed 12 Hour 120 mg tablet,extended release RxNorm: 3965916 TAKE (1) TABLET BY MOUTH EVERY 12 HOURS NEEDED 12/21/19 20 2019 Inactive loperamide 2 mg tablet RxNorm: 253120 1 Tablet(s) Oral as needed take one tablet after each loose stool, maximum of 8 tablets in 24 hours 12/11/19 20 2019 Inactive loperamide 2 mg tablet RxNorm: 565421 1 Tablet(s) Oral as needed take one tablet after each loose stool, maximum of 8 tablets in 24 hours 12/11/19 20 2019 Inactive atorvastatin 40 mg tablet RxNorm: 059561 1 Tablet(s) Oral every day 11/29/19 20 2020 Inactive quetiapine 100 mg tablet RxNorm: 037819 1 Tablet(s) Oral every night at bedtime 11/28/19 20 2019 Inactive sertraline 100 mg tablet RxNorm: 220504 1 Tablet(s) Oral 11/28/19 20 2019 Inactive omeprazole 20 mg capsule,delayed release RxNorm: 520843 1 Capsule(s) Oral every day 11/20/19 20 2019 Inactive amoxicillin 250 mg capsule RxNorm: 457928 1 Capsule(s) Oral three times a day 11/07/19 20 2019 Inactive multivitamin with iron-mineral tablet RxNorm: 1 Tablet(s) Oral every day 10/29/19 20 2021 Inactive cetirizine 10 mg tablet RxNorm: 0232246 1 Tablet(s) PO daily 10/20/19 20 2019 Inactive This refill negates all other refills of this medication. Please do not auto refill Singulair 10 mg tablet RxNorm: 357383 1 Tablet(s) PO daily 10/20/19 20 2019 Inactive This refill negates all other refills of this medication gabapentin 300 mg capsule RxNorm: 620082 1 Capsule(s) PO TID 10/20/19 20 2019 Inactive lisinopril 2.5 mg tablet RxNorm: 403521 1 Tablet(s) PO daily 10/20/19 20 2019 Inactive levothyroxine 50 mcg tablet RxNorm: 872087 1 Tablet(s) PO daily 10/20/19 20 2019 Inactive This refill negates all other refills of this medication fenugreek seed extract 500 mg capsule RxNorm: 1 Capsule(s) Oral three times a day 10/17/19 20 2021 Inactive hydrochlorothiazide 25 mg tablet RxNorm: 574480 1 Tablet(s) Oral every day 10/17/19 20 2019 Inactive Alcohol Prep Pads RxNorm: 652505 1 Patch TOP QAM 10/16/19 20 2020 Inactive loperamide 2 mg tablet RxNorm: 288083 1 Tablet(s) Oral as needed take one [...] 2019 Inactive hydrochlorothiazide 25 mg tablet RxNorm: 204563 1 Tablet(s) Oral every day 09/19/20 19 2019 Inactive Sudafed 12 Hour 120 mg tablet,extended release RxNorm: 3088968 1 Tablet(s) Oral every 12 hours as needed 09/11/20 19 2018 Inactive omeprazole 20 mg capsule,delayed release RxNorm: 926243 1 Capsule(s) Oral every day 09/07/20 19 2019 Inactive Sudafed 12 Hour 120 mg tablet,extended release RxNorm: 4214698 1 Tablet(s) Oral every 12 hours as needed 09/04/20 19 2018 Inactive pantoprazole 40 mg tablet,delayed release RxNorm: 175895 1 Tablet(s) Oral every day 08/24/20 19 2018 Inactive discontinue any other H2Blkr. and PPI albuterol sulfate 2.5 mg/3 mL (0.083 %) solution for nebulization RxNorm: 959524 1 Vial Inhalation every four hours as needed as needed for dyspnea 08/17/20 19 2019 Inactive 60/box. This refill negates all other refills of this medication. Please do not fill early. Please do not auto refill. Symbicort 160 mcg-4.5 mcg/actuation HFA aerosol inhaler RxNorm: 0306117 2 Puff(s) INH BID 08/17/20 19 No Stop Date Active Alcohol Prep Pads RxNorm: 882498 1 Patch TOP QAM 08/17/20 19 2019 Inactive Ventolin HFA 90 mcg/actuation aerosol inhaler RxNorm: 633279 2 Puff(s) INH QID 08/09/20 19 2019 Inactive Please do not fill early. Please do not auto refill. This refill negates all other refills of this medication True Metrix Glucose Test Strip RxNorm: 1 Test Strips Miscellaneous QAM 08/09/20 19 2019 Inactive 100/container atorvastatin 40 mg tablet RxNorm: 457303 1 Tablet(s) Oral every day 07/04/20 19 2019 Inactive levmetamfetamine 50 mg nasal inhaler RxNorm: 1 Unit(s) NASAL Q3-4H Do not use more than every 3 hours or 8 times/24hours 06/26/20 19 2021 Inactive Please do not auto refill. This refill negates all other refills of this medication buspirone 7.5 mg tablet RxNorm: 923563 1 Tablet(s) PO BID 06/26/20 19 2020 Inactive This refill negates all other refills of this medication hydrochlorothiazide 12.5 mg tablet RxNorm: 820440 1 Tablet(s) PO QAM 06/26/20 19 2019 Inactive Ventolin HFA 90 mcg/actuation aerosol inhaler RxNorm: 649497 2 Puff(s) INH QID 06/26/20 19 2018 Inactive Please do not fill early. Please do not auto refill. This refill negates all other refills of this medication Singulair 10 mg tablet RxNorm: 285748 1 Tablet(s) PO daily 06/26/20 19 2019 Inactive This refill negates all other refills of this medication cetirizine 10 mg tablet RxNorm: 8436551 1 Tablet(s) PO daily 06/26/20 19 2019 Inactive This refill negates all other refills of this medication. Please do not auto refill levothyroxine 50 mcg tablet RxNorm: 682440 1 Tablet(s) PO daily 06/26/20 19 2019 Inactive This refill negates all other refills of this medication diclofenac sodium 75 mg tablet,delayed release RxNorm: 294007 1 Tablet(s) PO BID 06/26/20 19 2019 Inactive This refill negates all other refills of this medication ranitidine 150 mg tablet RxNorm: 351230 1 Tablet(s) PO BID 06/26/20 19 2018 Inactive This refill negates all other refills of this medication Calcium 600-D3 Plus (mag-zinc) 600 mg calcium-800 unit-50 mg tablet RxNorm: 1 Tablet(s) PO daily take an additonal tablet for itching. 06/26/20 19 2018 Inactive This refill negates all other refills of this medication albuterol sulfate 2.5 mg/3 mL (0.083 %) solution for nebulization RxNorm: 631465 1 Vial INH QID 06/26/20 19 2018 Inactive 60/box. This refill negates all other refills of this medication. Please do not fill early. Please do not auto refill. lisinopril 2.5 mg tablet RxNorm: 419962 1 Tablet(s) PO daily 06/21/20 19 2019 Inactive gabapentin 300 mg capsule RxNorm: 917273 1 Capsule(s) PO TID 06/21/20 19 2019 Inactive atorvastatin 20 mg tablet RxNorm: 504293 1 Tablet(s) PO QHS 06/07/202018 Inactive This refill negates all other refills of this medication TRUEplus Lancets 30 gauge RxNorm: 1 Lancets Miscellaneous QAM 05/29/20 19 2018 Inactive 100/box gabapentin 300 mg capsule RxNorm: 116061 1 Capsule(s) PO TID 05/03/20 19 2018 Inactive Flintstones Complete (iron) 18 mg iron chewable tablet RxNorm: 1 Tablet(s) PO daily 04/04/20 19 2021 Inactive This refill negates all other refills of this medication gabapentin 300 mg capsule RxNorm: 313590 1 Capsule(s) PO TID as needed 02/01/20 19 2018 Inactive True Metrix Glucose Test Strip RxNorm: 1 Test Strips Miscellaneous QAM 02/01/20 19 2018 Inactive 100/container Alcohol Prep Pads RxNorm: 109125 1 Patch TOP QAM 05/01/2018 Inactive TRUEplus Lancets 30 gauge RxNorm: 1 Lancets Miscellaneous QAM 02/01/20 19 2018 Inactive 100/box lisinopril 2.5 mg tablet RxNorm: 730829 1 Tablet(s) PO daily 12/28/19 19 2018 Inactive ranitidine 150 mg tablet RxNorm: 826415 1 Tablet(s) PO BID 10/21/192018 Inactive This refill negates all other refills of this medication albuterol sulfate 2.5 mg/3 mL (0.083 %) solution for nebulization RxNorm: 768589 1 Vial INH QID 10/21/192018 Inactive 60/box. [...] this medication gabapentin 300 mg capsule RxNorm: 386930 1 Capsule(s) PO TID as needed 10/21/19 19 2018 Inactive atorvastatin 20 mg tablet RxNorm: 165090 1 Tablet(s) PO QHS 10/21/19 19 2018 Inactive This refill negates all other refills of this medication trazodone 50 mg tablet RxNorm: 235012 1 Tablet(s) PO QHS 10/21/192018 Inactive This refill negates all other refills of this medication Ventolin HFA 90 mcg/actuation aerosol inhaler RxNorm: 776564 2 Puff(s) INH QID 10/21/192018 Inactive Please do not fill early. Please do not auto refill. This refill negates all other refills of this medication Calcium 600-D3 Plus 600 mg calcium-800 unit-50 mg tablet RxNorm: 1 Tablet(s) PO daily take an additonal tablet for itching. 10/21/192018 Inactive This refill negates all other refills of this medication Singulair 10 mg tablet RxNorm: 707502 1 Tablet(s) PO daily 10/21/19 19 2018 Inactive This refill negates all other refills of this medication buspirone 7.5 mg tablet RxNorm: 238783 1 Tablet(s) PO BID 10/21/19 19 2018 Inactive This refill negates all other refills of this medication diclofenac sodium 75 mg tablet,delayed release RxNorm: 848395 1 Tablet(s) PO BID 10/21/19 19 2018 Inactive This refill negates all other refills of this medication hydrochlorothiazide 12.5 mg tablet RxNorm: 713245 1 Tablet(s) PO QAM 10/21/192018 Inactive metoprolol succinate ER 50 mg tablet,extended release 24 hr RxNorm: 546309 1 Tablet(s) PO daily 10/21/19 19 2018 Inactive This refill negates all other refills of this medication levothyroxine 50 mcg tablet RxNorm: 148112 1 Tablet(s) PO daily 10/21/192018 Inactive This refill negates all other refills of this medication cetirizine 10 mg tablet RxNorm: 6230182 1 Tablet(s) PO daily 10/21/192018 Inactive This refill negates all other refills of this medication. Please do not auto refill Flintstones Complete (iron) 18 mg iron chewable tablet RxNorm: 1 Tablet(s) PO daily 10/21/192018 Inactive This refill negates all other refills of this medication buspirone 7.5 mg tablet RxNorm: 532842 1 Tablet(s) PO BID 10/12/192018 Inactive cetirizine 10 mg tablet RxNorm: 9387499 1 Tablet(s) PO daily 09/28/202018 Inactive Guaiasorb DM 10 mg-100 mg/5 mL oral liquid RxNorm: 313277 10 Milliliter(s) PO As needed every 4 hr 09/24/20 18 2018 Inactive Vicks Vaporub 4.7 %-1.2 %-2.6 % topical ointment RxNorm: 7836017 1 Application TOP TID 09/24/20 18 2018 Inactive levmetamfetamine 50 mg nasal inhaler RxNorm: 1 Unit(s) NASAL Q3-4H 09/24/20 18 2017 Inactive sertraline 50 mg tablet RxNorm: 602842 1 Tablet(s) PO daily 09/09/20 18 2018 Inactive Please note dose trazodone 50 mg tablet RxNorm: 474339 1 Tablet(s) PO QHS 09/06/20 18 2018 Inactive sertraline 50 mg tablet RxNorm: 676776 1 Tablet(s) PO daily 09/06/20 18 2017 Inactive amoxicillin 500 mg tablet RxNorm: 604550 1 Tablet(s) PO Q12H 08/31/20 18 2017 Inactive albuterol sulfate 2.5 mg/3 mL (0.083 %) solution for nebulization RxNorm: 763734 1 Vial INH QID 08/10/20 18 2018 Inactive 60/box. Please do not fill early. Please do not auto refill. Prozac 10 mg capsule RxNorm: 504235 1 Capsule(s) PO daily 08/09/20 18 2017 Inactive buspirone 7.5 mg tablet RxNorm: 975427 1 Tablet(s) PO BID 08/09/20 18 2018 Inactive gabapentin 300 mg capsule RxNorm: 341739 1 Capsule(s) PO TID as needed 08/01/20 18 2018 Inactive hydrochlorothiazide 12.5 mg tablet RxNorm: 591599 1 Tablet(s) PO QAM 08/01/20 18 2018 Inactive ranitidine 150 mg tablet RxNorm: 572604 1 Tablet(s) PO BID 08/01/20 18 2018 Inactive Macrobid 100 mg capsule RxNorm: 024517 1 Capsule(s) PO Q12H 06/21/20 18 2017 Inactive Singulair 10 mg tablet RxNorm: 688352 1 Tablet(s) PO daily 06/14/20 18 2018 Inactive Ventolin HFA 90 mcg/actuation aerosol inhaler RxNorm: 4665538 2 Puff(s) INH QID 06/14/20 18 2018 Inactive Singulair 10 mg tablet RxNorm: 469169 1 Tablet(s) PO daily 06/14/20 18 2017 Inactive buspirone 7.5 mg tablet RxNorm: 099525 1 Tablet(s) PO BID 06/14/20 18 2017 Inactive Prozac 10 mg capsule RxNorm: 720239 1 Capsule(s) PO daily 06/14/20 18 2017 Inactive Neilmed Pediatric Sinus Rinse Refill packet RxNorm: 1 Unit Dose NASAL PRN 05/31/20 18 2021 Inactive diclofenac sodium 75 mg tablet,delayed release RxNorm: 260218 1 Tablet(s) PO BID 05/31/20 18 2017 Inactive lisinopril 2.5 mg tablet RxNorm: 473816 1 Tablet(s) PO daily 05/31/20 18 2017 Inactive metoprolol succinate ER 50 mg tablet,extended release 24 hr RxNorm: 220647 1 Tablet(s) PO daily 05/31/20 18 2017 Inactive levothyroxine 50 mcg tablet RxNorm: 876416 1 Tablet(s) PO daily 05/31/20 18 2017 Inactive TRUEplus Lancets 30 gauge RxNorm: 1 Lancets Miscellaneous QAM 05/31/20 18 2017 Inactive 100/box Ventolin HFA 90 mcg/actuation aerosol inhaler RxNorm: 590751 2 Puff(s) INH QID 05/31/20 18 2017 Inactive Aleve 220 mg capsule RxNorm: 0700354 1 Capsule(s) PO BID 05/31/20 18 2018 Inactive ranitidine 150 mg tablet RxNorm: 675889 1 Tablet(s) PO BID 05/31/20 18 2017 Inactive gabapentin 300 mg capsule RxNorm: 082152 1 Capsule(s) PO TID as needed 05/31/20 18 2017 Inactive atorvastatin 20 mg tablet RxNorm: 355989 1 Tablet(s) PO QHS 05/31/20 18 2017 Inactive True Metrix Glucose Test Strip RxNorm: 1 Test Strips Miscellaneous QAM 05/31/20 18 2017 Inactive 50/container Calcium 600-D3 Plus 600 mg calcium-800 unit-50 mg tablet RxNorm: 1 Tablet(s) PO daily take an additonal tablet for itching. 05/31/20 18 2017 Inactive hydrochlorothiazide 12.5 mg tablet RxNorm: 846724 1 Tablet(s) PO QAM 05/31/20 18 2017 Inactive Flintstones Complete (iron) 18 mg iron chewable tablet RxNorm: 1 Tablet(s) PO daily 05/31/20 18 2017 Inactive d-mannose oral powder RxNorm: PO 18 2021 Inactive True Metrix Glucose Meter RxNorm: miscellaneous 08/17/20 19 2018 Inactive sertraline 50 mg tablet RxNorm: 559398 1 Tablet(s) PO daily 11/28/19 20 2019 Inactive loperamide 2 mg tablet RxNorm: 812056 oral 09/29/20 19 2018 Inactive Symbicort 160 mcg-4.5 mcg/actuation HFA aerosol inhaler RxNorm: 2878203 2 Puff(s) INH BID 08/17/20 19 2018 [...] VACP 1 Fall Risk Assessment SNOMED CT: 61304107 4 CPT-4: DFRA01/13/2021emmes Fany AssessmentCPT-4: DSWA12/17/2020Urinalysis, dip stickCPT-4: 699719609/24/2020Patient Health QuestionnaireCPT-4: DPHQ 08/19/2020ElectrocardiogramCPT-4: 1991691Tobacco Assessment/Screening CPT-4: TCA01/01/2020Fall Risk AssessmentSNOMED CT: 804941981 CPT-4: DFRA01/01/2020Functional AssessmentCPT-4: DFA01/01/2020Sem[place] Fany AssessmentCPT-4: DSWA11/28/2019Patient Health QuestionnaireCPT-4: DPHQ11/28/2019 [place] Fany AssessmentCPT-4: DSWA10/17/2019HypertensionCPT-4: HTN10/17/[address]: 017713911 CPT-4: DFRA09/19/2019Functional AssessmentCPT-4: DFA111/20/2018Urinalysis, dip stickCPT-4: 016685506/21/2019Tobacco Assessment/ScreeningCPT-4: TCA05/24/2019 Patient Health QuestionnaireCPT-4: DPHQ05/24/2019AHA/REBECCA Classification AssessmentCPT-4: DAHA04/25/2019Controlled Substance ReportCPT-4: CTRSU04/25/2019 Urinalysis, dip stickCPT-4: 489255503/28/2019Urinalysis, dip stickCPT-4: 77132 03/28/20196738S0I-PvdhsggqjvugnkiDDM-7: 68307HkjcfziK0R-YymxpqtnjyygljbUTZ-3: 41702 GmqzgqtY8B-ErfxlyefaqbfjirCBS-6: 62676LcdbcbqB0I-BpitpzeudfawzwrDPP-3: 85160 AwjiyiaM3D-IjpiofauglzdhdiAKG-4: 68642QzlbbrnF7V-XlvrychbmqyomjbENW-6: 91759 DckhewbZ1S-QjowjmgjwqvuxoyJWP-6: 03390YhxckweZkyojurlwi ReferralSNOMED CT: 276212972 CPT-4: A84Upijhiw Reason For Visit No Reason For Visit data Plan of Care Planned Activity Notes Codes Status Date Referral: Pending Gynecology Referral Informatio n Referral ProcessedReferral: Pending Pulmonology Referral InformationReferralProcessed Referral: Pending Psychiatry Referral InformationReferralInitiatedReferral: Pending Respiratory Services Referral InformationReferralInitiatedReferral: Pending Ophthalmology Referral InformationReferralInitiatedReferral: [facility] WPtel: [address] [place] USWriter placed a call out to the patient to notify her that it has been recommended that she be seenby 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 Patient agreed to be seen, does not have a provider of choice and no transportationissues. Accounting Software Specialist faxed referral and clinical notes to [facility] in [place], [place] near the patient's home. Patient to [...] seen and prefers a provider in the [place] or [place] area. Accounting Software Specialist placed a call out to everyone listed in the area and the only location that was able to accept the patient's insurance was [address] [address] and spoke with Maylin. Maylin asked that the patient's referral, face sheet and visit notes be faxed to . Accounting Software Specialist faxed over requested documents. Patient appointment confirmation letter generated and mailed to her home address. Patient to call to schedule an appointment.ProcessedRef[facility] WPtel: [address] [id number] USPatient notified that it has been advised that she be seen by Neurology. Patient agreed to be seen and prefers to be seen by a provider in the [place], [place] area. Patient denies any concerns with transportation, and prefers to schedule her own appointment. Accounting Software Specialist [facility] and spoke with Neeraj Mcfarland: who confirmed that their office is able to acceptnew patients and the patient's insurance. After confirming the providers fax number, typewriter operator automatic faxed over the patient's referral, and most [...]
--- OUTSIDE RECORDS SUMMARY | 2021-09-09 20:00 | XMS_ITS | CCD ---
Author Name Chivo Bishop [place] Address [address] [facility] [address] [place] [address] Phone Organization [facility] Phone Care Team Providers Care Cigarette Maker Name Role Phone Palomo KING, Anna Primary Care Provider Unav ailable Unavailable Chronic Care Management Unavaila ble Summary Purpose DataExchange Insurance Providers Payer name Policy type / Coverage type Covered alliance party ID Effective Begin Date Effective End Date SUKI MAYO [id number] Unknown Unknown Family history Mother Diagnosis Age [...] 05/31/2018 Education level Unknown Some High School 10th05/31/20182075XztsyniheuIohyznkTovobgaibw78/29/2018Tobacco historySNOMED CT: 052330534Gke never smoked or chewed omoxzji5005/31/2018Alcohol historySNOMED CT: 884839991Vnzid drinks jobsijx2605/31/2018Has the patient ever used illegal drugs? UnknownHas never used illegal drugs05/31/2018DNR Order/ Advanced Directive UnknownFull Code05/31/2018 Allergies, Adverse Reactions, Alerts Substance Reaction Codes Entered Date Inactivated Date Status OxyContin itch, RxNorm: 377388 01/13/2021 No Inactive Da te Active *No known food allergies Crfthmk1509/06/2018No Inactive DateActiveMethylprednisolonehivesRxNorm: 6902 09/06/2018No Inactive DateActive Problems Condition Codes Effective Dates Condition St atus Patient not seen ICD-10: UXZ.01 ICD-9: UXZ.0112/1ActiveDiarrheaICD-10: R19.7 ICD-9: 787.9111/ctiveGERD (gastroesophageal reflux disease)ICD-10: K21.9 ICD-9: 530.8112ActiveHyperlipidemia, unspecifiedICD-10: E78.5 ICD-9: 272.408ActiveType 2 diabetes mellitus with peripheral neuropathy ICD-10: E11.42 ICD-9: 250.6002ActiveDyspnea, unspecifiedICD-10: R06.00 ICD-9: 786.0902/08/2019ActiveAdjustment disorder with mixed anxiety and depressed moodICD-10: F43.23 ICD-9: 309.28111/06/2017ActiveCOVID-19 virus RNA test result positive at limit of detectionICD-10: U07.1 ICD-9: 079.8909/ctiveUpper respiratory infectionICD-10: J06.9 ICD-9: 465.908/ctiveChronic kidney disease, stage 2 (mild)ICD-10: N18.2 ICD-9: 585.ctiveFamily history of seizuresICD-10: Z84.89 ICD-9: V19.807/ctiveHypertensive heart disease with heart failureICD-10: I11.0 ICD-9: 402.9107/ActiveSyncope and collapseICD-10: R55 ICD-9: 780.ActiveAnorexiaICD-10: R63.0 ICD-9: 783.003/1ActivePost-traumatic stress disorder, unspecifiedICD-10: F43.10 ICD-9: 309.8112ActiveBlisterICD-10: T14.8XXA ICD-9: 919.1ActiveObstructive sleep apnea (adult) (pediatric)ICD-10: G47.33 ICD-9: 327.2309ActiveEncounter for screening for tobacco useICD-10: Z01.89 ICD-9: V72.8503ActiveElevated liver enzymesICD-10: R74.8 ICD-9: 790.504/ctiveHistory of bladder surgeryICD-10: Z98.890 ICD-9: V45.8904/ctiveUrinary retention with incomplete bladder emptying ICD-10: R33.9 ICD-9: 788.2104/ctive(Z00.01-V70.0) Encounter for general adult medical examination with abnormal findingsICD-10: Z00.01 ICD-9: V70.004/ctive(Z13.31-V79.0) Encounter for screening for depressionICD-10: Z ICD-9: V79.004ctiveEncounter for immunizationICD-10: Z23 ICD-9: V04.8109InactiveEssential (primary) hypertensionICD-10: I10 ICD-9: 401.901InactiveApnea, not elsewhere classifiedICD-10: R06.81 ICD-9: 786.0305InactiveChest pain, unspecifiedICD-10: R07.9 ICD-9: 786.5002InactiveChronic kidney disease, unspecifiedICD-10: N18.9 ICD-9: 585.909InactiveEncounter for immunizationICD-10: Z23 ICD-9: V03.907/InactiveEncounter for preprocedural cardiovascular examinationICD-10: Z01.810 ICD-9: V72.8106/InactiveHeadacheICD-10: R51 ICD-9: 784.001InactiveOther termite control representative (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ICD-10: Z79.899 ICD-9: V58.6907InactiveType 2 diabetes mellitus without complications ICD-10: E11.9 ICD-9: 250.0001/10/2018InactiveWheezingICD-10: R06.2 ICD-9: 786.0711InactiveAbnormal urine findingICD-10: R82.90 ICD-9: 791.912/ResolvedAbrasion of toeICD-10: S90.416A ICD-9: 917.005/ResolvedPink eyeICD-10: H10.029 ICD-9: 372.0303/ResolvedRight wrist painICD-10: M25.531 ICD-9: 719.4308ResolvedSinusitisICD-10: J32.9 ICD-9: 473.902/02/2020ResolvedSuperficial burn of multiple sites of right hand, subsequent encounterICD-10: T23.191D ICD-9: V58.8902/1ResolvedUrinary tract infectionICD-10: N39.0 ICD-9: 599.012ResolvedPolyneuropathy, unspecifiedICD-10: G62.9 ICD-9: 356.908ActiveEncounter for screening, unspecifiedICD-10: Z13.9 ICD-9: V82.9111/06/2017Active(Z12.4-V76.2) Encounter for screening for malignant neoplasm of cervixICD-10: Z12.4 ICD-9: V76.ActiveHypothyroidism, unspecifiedICD-10: E03.9 ICD-9: 244.912Active(Z12.11-V76.51) Encounter for screening for malignant neoplasm of colonICD-10: Z12.11 ICD-9: V76.5107Active(Z12.31-V76.12) Encounter for screening mammogram for malignant neoplasm of breastICD-10: Z12.31 ICD-9: V76.1207ActiveAdult BMI 50.0-59.9 kg/sq mICD-10: Z68.43 ICD-9: V85.43005/30/2018ActiveFecal incontinenceICD-10: R15.9 ICD-9: 787.6003/ActiveMixed incontinenceICD-10: N39.46 ICD-9: 788.3308ActiveAsthmaICD-10: J45.909 ICD-9: 493.9011ActivePatient Not SeenICD-10: UXZ.01 ICD-9: XZ0.107ActiveAbnormal electrocardiogram [ECG] [EKG]ICD-10: R94.31 ICD-9: 794.31005/30/2018ActiveEdema, unspecifiedICD-10: R60.9 ICD-9: 782.310ActiveLong term (current) use of non-steroidal anti- inflammatories (NSAID)ICD-10: Z79.1 ICD-9: V58.64006/13/2018Active Medications Medication Codes Instructions Start Date Stop Date Status Fill Instructions Easy Touch Alcohol Prep Pads RxNorm: 801021 USE DIRECTED EACH MORNING 09/03/20 21 2021 Inactive Probiotic 10 billion cell capsule RxNorm: 1698530 Take 1 Capsule(s) Oral every day 08/13/20 21 2021 Inactive levothyroxine 50 mcg tablet RxNorm: 251363 Take 1 Tablet(s) Oral every day 08/13/20 21 2020 Inactive Acid Clinical Nursing Assistant (famotidine) 20 mg tablet RxNorm: 939428 Take 1 Tablet(s) Oral every morning 08/13/20 21 2020 Inactive Heartburn Relief (famotidine) 10 mg tablet RxNorm: 678641 Take 1 Tablet(s) Oral QAM 08/07/20 21 2020 Inactive levothyroxine 50 mcg tablet RxNorm: 531185 Take 1 Tablet(s) Oral QD 08/07/20 21 2020 Inactive metformin 1,000 mg tablet RxNorm: 139954 1 Tablet(s) Oral two times a day 07/16/20 21 2021 Inactive Singulair 10 mg tablet RxNorm: 497163 TAKE (1) TABLET BY MOUTH DAILY 07/16/20 21 2020 Inactive lisinopril 2.5 mg tablet RxNorm: 289382 Take 1 Tablet(s) Oral every day 07/11/20 21 2020 Inactive hydrochlorothiazide 25 mg tablet RxNorm: 923394 Take 1 Tablet(s) Oral every day 06/12/20 21 2020 Inactive ondansetron 4 mg disintegrating tablet RxNorm: 591597 1 Tablet(s) Oral two times a day 06/10/20 21 2020 Inactive Sudafed 12 Hour 120 mg tablet,extended release RxNorm: 5635028 TAKE 1 TABLET BY MOUTH EVERY 12 HOURS NEEDED 06/01/20 21 2021 Inactive Heartburn Relief (famotidine) 10 mg tablet RxNorm: 214268 Take 1 Tablet(s) Oral every morning 05/07/20 21 2020 Inactive omeprazole 20 mg capsule,delayed release RxNorm: 318968 1 Capsule(s) Oral every evening 04/03/20 21 2020 Inactive sertraline 100 mg tablet RxNorm: 423324 2 Tablet(s) Oral every day 03/13/202020 Inactive levothyroxine 50 mcg tablet RxNorm: 847442 TAKE (1) TABLET BY MOUTH DAILY 02/04/20 21 2020 Inactive metformin 500 mg tablet RxNorm: 685450 1 Tablet(s) Oral two times a day take with 500mg to equal 1000mg 01/14/20 21 2020 Inactive gabapentin 300 mg capsule RxNorm: 099449 TAKE 1 CAPSULE BY MOUTH THREE TIMES A DAY 01/14/20 21 2020 Inactive lisinopril 2.5 mg tablet RxNorm: 831697 TAKE 1 TABLET BY MOUTH DAILY 01/06/20 21 2020 Inactive gabapentin 300 mg capsule RxNorm: 896654 TAKE 1 CAPSULE BY MOUTH THREE TIMES A DAY 01/06/20 21 2020 Inactive Singulair 10 mg tablet RxNorm: 115644 TAKE (1) TABLET BY MOUTH DAILY 01/06/20 21 2020 Inactive metformin 1,000 mg tablet RxNorm: 672080 1 Tablet(s) Oral two times a day 01/06/20 21 2020 Inactive atorvastatin 40 mg tablet RxNorm: 403501 1 Tablet(s) Oral every day 12/06/19 2020 Inactive omeprazole 20 mg capsule,delayed release RxNorm: 101805 1 Capsule(s) Oral every evening 11/24/192020 Inactive famotidine 10 mg tablet RxNorm: 708619 1 Tablet(s) Oral every morning 11/24/19 21 2020 Inactive Alcohol Prep Pads RxNorm: 997441 USE EACH MORNING 10/14/19 21 2020 Inactive omeprazole 20 mg capsule,delayed release RxNorm: 333158 1 Capsule(s) Oral two times a day 10/13/19 21 2021 Inactive omeprazole 20 mg capsule,delayed release RxNorm: 411679 TAKE 1 CAPSULE BY MOUTH EVERY DAY 10/08/192021 Inactive Macrobid 100 mg capsule RxNorm: 430025 1 Capsule(s) Oral every 12 hours with food 10/01/202020 Inactive omeprazole 20 mg capsule,delayed release RxNorm: 143697 1 Capsule(s) Oral two times a day 09/24/202021 Inactive metformin 1,000 mg tablet RxNorm: 398088 1 Tablet(s) Oral two times a day 08/19/20 20 2020 Inactive start on September 11, 2020 metformin 500 mg tablet RxNorm: 745593 1 Tablet(s) Oral two times a day take with 500mg to equal 1000mg 08/19/20 20 2019 Inactive gabapentin 300 mg capsule RxNorm: 120207 TAKE 1 CAPSULE BY MOUTH THREE TIMES DAILY 07/11/20 20 2020 Inactive cetirizine 10 mg tablet RxNorm: 7106412 TAKE (1) TABLET BY MOUTH DAILY 07/11/20 20 2020 Inactive metformin 500 mg tablet RxNorm: 968923 1 Tablet(s) Oral two times a day 07/08/20 20 2019 Inactive loperamide 2 mg tablet RxNorm: 290907 1 Tablet(s) Oral as needed take one tablet after each loose stool, maximum of 8 tablets in 24 hours 06/24/20 20 2021 Inactive Sudafed 12 Hour 120 mg tablet,extended release RxNorm: 2162794 TAKE 1 TABLET BY MOUTH EVERY 12 HOURS NEEDED 06/11/20 20 2019 Inactive hydrochlorothiazide 25 mg tablet RxNorm: 198542 TAKE (1) TABLET BY MOUTH EVERY DAY 06/11/20 20 2019 Inactive omeprazole 20 mg capsule,delayed release RxNorm: 485285 TAKE 1 CAPSULE BY MOUTH EVERY DAY 05/14/20 20 2020 Inactive metformin 500 mg tablet RxNorm: 271263 1 Tablet(s) Oral every day 05/12/20 20 2019 Inactive True Metrix Glucose Test Strip RxNorm: 1 Test Strips Miscellaneous two times a day as needed 04/17/20 No Stop Date Active metformin 500 mg tablet RxNorm: 688979 1 Tablet(s) Oral every day 04/17/20 20 2019 Inactive diclofenac sodium 75 mg tablet,delayed release RxNorm: 366800 1 Tablet(s) PO BID 04/14/20 20 2021 Inactive This refill negates all other refills of this medication Sudafed 12 Hour 120 mg tablet,extended release RxNorm: 4252352 TAKE 1 TABLET BY MOUTH EVERY 12 HOURS NEEDED 03/14/20 20 2019 Inactive True Metrix Glucose Test Strip RxNorm: 1 Test Strips Miscellaneous every morning 03/13/20 20 2019 Inactive 100/container True Metrix Glucose Test Strip RxNorm: 1 Test Strips Miscellaneous QA 02/22/20 20 2019 Inactive 100/container loperamide 2 mg tablet RxNorm: 613073 1 Tablet(s) Oral as needed take one tablet after each loose stool, maximum of 8 tablets in 24 hours 02/22/20 20 2019 Inactive cetirizine 10 mg tablet RxNorm: 6791637 1 Tablet(s) PO daily 01/17/20 20 2019 Inactive loperamide 2 mg tablet RxNorm: 122111 1 Tablet(s) Oral as needed take one tablet after each loose stool, maximum of 8 tablets in 24 hours 01/17/20 20 2019 Inactive quetiapine 100 mg tablet RxNorm: 197551 1 Tablet(s) Oral every night at bedtime 01/17/20 20 2019 Inactive levothyroxine 50 mcg tablet RxNorm: 510079 1 Tablet(s) PO daily 01/17/20 20 2020 Inactive gabapentin 300 mg capsule RxNorm: 005937 1 Capsule(s) PO TID 01/17/20 20 2019 Inactive levothyroxine 50 mcg tablet RxNorm: 324204 1 Tablet(s) PO daily 01/15/20 20 2019 Inactive lisinopril 2.5 mg tablet RxNorm: 685738 1 Tablet(s) PO daily 01/15/20 20 2020 Inactive gabapentin 300 mg capsule RxNorm: 280570 1 Capsule(s) PO TID 01/15/20 20 2019 Inactive cetirizine 10 mg tablet RxNorm: 8013170 1 Tablet(s) PO daily 01/15/20 20 2019 Inactive Singulair 10 mg tablet RxNorm: 917740 1 Tablet(s) PO daily 01/15/20 20 2020 Inactive gentamicin 0.3 % eye drops RxNorm: 476094 1 Drop(s) ophthalmic (eye) four times a day 12/29/19 20 2019 Inactive gentamicin 0.3 % eye drops RxNorm: 852996 1 Drop(s) ophthalmic (eye) four times a day 12/29/19 20 2019 Inactive gentamicin 0.3 % eye drops RxNorm: 532143 1 Drop(s) ophthalmic (eye) four times a day 12/29/19 20 2019 Inactive hydrochlorothiazide 25 mg tablet RxNorm: 786738 1 Tablet(s) Oral every day 12/21/19 20 2019 Inactive Sudafed 12 Hour 120 mg tablet,extended release RxNorm: 5790744 TAKE (1) TABLET BY MOUTH EVERY 12 HOURS NEEDED 12/21/19 20 2019 Inactive loperamide 2 mg tablet RxNorm: 269576 1 Tablet(s) Oral as needed take one tablet after each loose stool, maximum of 8 tablets in 24 hours 12/11/19 20 2019 Inactive loperamide 2 mg tablet RxNorm: 843324 1 Tablet(s) Oral as needed take one tablet after each loose stool, maximum of 8 tablets in 24 hours 12/11/19 20 2019 Inactive atorvastatin 40 mg tablet RxNorm: 088000 1 Tablet(s) Oral every day 11/29/19 20 2020 Inactive quetiapine 100 mg tablet RxNorm: 910615 1 Tablet(s) Oral every night at bedtime 11/28/19 20 2019 Inactive sertraline 100 mg tablet RxNorm: 590630 1 Tablet(s) Oral 11/28/19 20 2019 Inactive omeprazole 20 mg capsule,delayed release RxNorm: 790151 1 Capsule(s) Oral every day 11/20/19 20 2019 Inactive amoxicillin 250 mg capsule RxNorm: 045870 1 Capsule(s) Oral three times a day 11/07/19 20 2019 Inactive multivitamin with iron-mineral tablet RxNorm: 1 Tablet(s) Oral every day 10/29/19 20 2021 Inactive cetirizine 10 mg tablet RxNorm: 6706180 1 Tablet(s) PO daily 10/20/19 20 2019 Inactive This refill negates all other refills of this medication. Please do not auto refill Singulair 10 mg tablet RxNorm: 950184 1 Tablet(s) PO daily 10/20/19 20 2019 Inactive This refill negates all other refills of this medication gabapentin 300 mg capsule RxNorm: 315008 1 Capsule(s) PO TID 10/20/19 20 2019 Inactive lisinopril 2.5 mg tablet RxNorm: 223891 1 Tablet(s) PO daily 10/20/19 20 2019 Inactive levothyroxine 50 mcg tablet RxNorm: 544368 1 Tablet(s) PO daily 10/20/19 20 2019 Inactive This refill negates all other refills of this medication fenugreek seed extract 500 mg capsule RxNorm: 1 Capsule(s) Oral three times a day 10/17/19 20 2021 Inactive hydrochlorothiazide 25 mg tablet RxNorm: 107396 1 Tablet(s) Oral every day 10/17/19 20 2019 Inactive Alcohol Prep Pads RxNorm: 033845 1 Patch TOP QAM 10/16/19 20 2020 Inactive loperamide 2 mg tablet RxNorm: 256537 1 Tablet(s) Oral as needed take one [...] 2019 Inactive hydrochlorothiazide 25 mg tablet RxNorm: 122736 1 Tablet(s) Oral every day 09/19/20 19 2019 Inactive Sudafed 12 Hour 120 mg tablet,extended release RxNorm: 4224131 1 Tablet(s) Oral every 12 hours as needed 09/11/20 19 2018 Inactive omeprazole 20 mg capsule,delayed release RxNorm: 189410 1 Capsule(s) Oral every day 09/07/20 19 2019 Inactive Sudafed 12 Hour 120 mg tablet,extended release RxNorm: 9966308 1 Tablet(s) Oral every 12 hours as needed 09/04/20 19 2018 Inactive pantoprazole 40 mg tablet,delayed release RxNorm: 320704 1 Tablet(s) Oral every day 08/24/202018 Inactive discontinue any other H2Blkr. and PPI albuterol sulfate 2.5 mg/3 mL (0.083 %) solution for nebulization RxNorm: 357555 1 Vial Inhalation every four hours as needed as needed for dyspnea 08/17/20 19 2019 Inactive 60/box. This refill negates all other refills of this medication. Please do not fill early. Please do not auto refill. Symbicort 160 mcg-4.5 mcg/actuation HFA aerosol inhaler RxNorm: 1803049 2 Puff(s) INH BID 08/17/20 19 No Stop Date Active Alcohol Prep Pads RxNorm: 688526 1 Patch TOP QAM 08/17/20 19 2019 Inactive Ventolin HFA 90 mcg/actuation aerosol inhaler RxNorm: 949544 2 Puff(s) INH QID 08/09/20 19 2019 Inactive Please do not fill early. Please do not auto refill. This refill negates all other refills of this medication True Metrix Glucose Test Strip RxNorm: 1 Test Strips Miscellaneous QAM 08/09/20 19 2019 Inactive 100/container atorvastatin 40 mg tablet RxNorm: 833415 1 Tablet(s) Oral every day 07/04/20 19 2019 Inactive levmetamfetamine 50 mg nasal inhaler RxNorm: 1 Unit(s) NASAL Q3-4H Do not use more than every 3 hours or 8 times/24hours 06/26/20 19 2021 Inactive Please do not auto refill. This refill negates all other refills of this medication buspirone 7.5 mg tablet RxNorm: 987193 1 Tablet(s) PO BID 06/26/20 19 2020 Inactive This refill negates all other refills of this medication hydrochlorothiazide 12.5 mg tablet RxNorm: 954881 1 Tablet(s) PO QAM 06/26/20 19 2019 Inactive Ventolin HFA 90 mcg/actuation aerosol inhaler RxNorm: 797529 2 Puff(s) INH QID 06/26/20 19 2018 Inactive Please do not fill early. Please do not auto refill. This refill negates all other refills of this medication Singulair 10 mg tablet RxNorm: 275704 1 Tablet(s) PO daily 06/26/20 19 2019 Inactive This refill negates all other refills of this medication cetirizine 10 mg tablet RxNorm: 4217789 1 Tablet(s) PO daily 06/26/20 19 2019 Inactive This refill negates all other refills of this medication. Please do not auto refill levothyroxine 50 mcg tablet RxNorm: 373042 1 Tablet(s) PO daily 06/26/20 19 2019 Inactive This refill negates all other refills of this medication diclofenac sodium 75 mg tablet,delayed release RxNorm: 542513 1 Tablet(s) PO BID 06/26/20 19 2019 Inactive This refill negates all other refills of this medication ranitidine 150 mg tablet RxNorm: 478007 1 Tablet(s) PO BID 06/26/20 19 2018 Inactive This refill negates all other refills of this medication Calcium 600-D3 Plus (mag-zinc) 600 mg calcium-800 unit-50 mg tablet RxNorm: 1 Tablet(s) PO daily take an additonal tablet for itching. 06/26/20 19 2018 Inactive This refill negates all other refills of this medication albuterol sulfate 2.5 mg/3 mL (0.083 %) solution for nebulization RxNorm: 061150 1 Vial INH QID 06/26/20 19 2018 Inactive 60/box. This refill negates all other refills of this medication. Please do not fill early. Please do not auto refill. lisinopril 2.5 mg tablet RxNorm: 148597 1 Tablet(s) PO daily 06/21/20 19 2019 Inactive gabapentin 300 mg capsule RxNorm: 272304 1 Capsule(s) PO TID 06/21/20 19 2019 Inactive atorvastatin 20 mg tablet RxNorm: 610412 1 Tablet(s) PO QHS 06/07/20 19 2018 Inactive This refill negates all other refills of this medication TRUEplus Lancets 30 gauge RxNorm: 1 Lancets Miscellaneous QAM 05/29/20 19 2018 Inactive 100/box gabapentin 300 mg capsule RxNorm: 252008 1 Capsule(s) PO TID 05/03/20 19 2018 Inactive Flintstones Complete (iron) 18 mg iron chewable tablet RxNorm: 1 Tablet(s) PO daily 04/04/20 19 2021 Inactive This refill negates all other refills of this medication gabapentin 300 mg capsule RxNorm: 456224 1 Capsule(s) PO TID as needed 02/01/20 19 2018 Inactive True Metrix Glucose Test Strip RxNorm: 1 Test Strips Miscellaneous QA 02/01/20 19 2018 Inactive 100/container Alcohol Prep Pads RxNorm: 735769 1 Patch TOP QAM 02/01/20 19 2018 Inactive TRUEplus Lancets 30 gauge RxNorm: 1 Lancets Miscellaneous QAM 02/01/20 19 2018 Inactive 100/box lisinopril 2.5 mg tablet RxNorm: 794563 1 Tablet(s) PO daily 12/28/19 19 2018 Inactive ranitidine 150 mg tablet RxNorm: 404285 1 Tablet(s) PO BID 10/21/192018 Inactive This refill negates all other refills of this medication albuterol sulfate 2.5 mg/3 mL (0.083 %) solution for nebulization RxNorm: 426860 1 Vial INH QID 10/21/192018 Inactive 60/box. [...] this medication gabapentin 300 mg capsule RxNorm: 806970 1 Capsule(s) PO TID as needed 10/21/192018 Inactive atorvastatin 20 mg tablet RxNorm: 513808 1 Tablet(s) PO QHS 10/21/19 19 2018 Inactive This refill negates all other refills of this medication trazodone 50 mg tablet RxNorm: 526901 1 Tablet(s) PO QHS 10/21/19 19 2018 Inactive This refill negates all other refills of this medication Ventolin HFA 90 mcg/actuation aerosol inhaler RxNorm: 586439 2 Puff(s) INH QID 10/21/19 19 2018 [...] this medication Singulair 10 mg tablet RxNorm: 295280 1 Tablet(s) PO daily 10/21/192018 Inactive This refill negates all other refills of this medication buspirone 7.5 mg tablet RxNorm: 691151 1 Tablet(s) PO BID 10/21/192018 Inactive This refill negates all other refills of this medication diclofenac sodium 75 mg tablet,delayed release RxNorm: 729166 1 Tablet(s) PO BID 10/21/192018 Inactive This refill negates all other refills of this medication hydrochlorothiazide 12.5 mg tablet RxNorm: 744518 1 Tablet(s) PO QAM 10/21/192018 Inactive metoprolol succinate ER 50 mg tablet,extended release 24 hr RxNorm: 276959 1 Tablet(s) PO daily 10/21/192018 Inactive This refill negates all other refills of this medication levothyroxine 50 mcg tablet RxNorm: 581035 1 Tablet(s) PO daily 10/21/192018 Inactive This refill negates all other refills of this medication cetirizine 10 mg tablet RxNorm: 3647787 1 Tablet(s) PO daily 10/21/192018 Inactive This refill negates all other refills of this medication. Please do not auto refill Flintstones Complete (iron) 18 mg iron chewable tablet RxNorm: 1 Tablet(s) PO daily 10/21/192018 Inactive This refill negates all other refills of this medication buspirone 7.5 mg tablet RxNorm: 420542 1 Tablet(s) PO BID 10/12/19 19 2018 Inactive cetirizine 10 mg tablet RxNorm: 5555556 1 Tablet(s) PO daily 09/28/20 18 2018 Inactive Guaiasorb DM 10 mg-100 mg/5 mL oral liquid RxNorm: 076628 10 Milliliter(s) PO As needed every 4 hr 09/24/20 18 2018 Inactive Vicks Vaporub 4.7 %-1.2 %-2.6 % topical ointment RxNorm: 0360419 1 Application TOP TID 09/24/20 18 2018 Inactive levmetamfetamine 50 mg nasal inhaler RxNorm: 1 Unit(s) NASAL Q3-4H 09/24/20 18 2017 Inactive sertraline 50 mg tablet RxNorm: 412140 1 Tablet(s) PO daily 09/09/20 18 2018 Inactive Please note dose trazodone 50 mg tablet RxNorm: 988337 1 Tablet(s) PO QHS 09/06/20 18 2018 Inactive sertraline 50 mg tablet RxNorm: 533277 1 Tablet(s) PO daily 09/06/20 18 2017 Inactive amoxicillin 500 mg tablet RxNorm: 261221 1 Tablet(s) PO Q12H 08/31/20 18 2017 Inactive albuterol sulfate 2.5 mg/3 mL (0.083 %) solution for nebulization RxNorm: 427161 1 Vial INH QID 08/10/20 18 2018 Inactive 60/box. Please do not fill early. Please do not auto refill. Prozac 10 mg capsule RxNorm: 443915 1 Capsule(s) PO daily 08/09/20 18 2017 Inactive buspirone 7.5 mg tablet RxNorm: 183650 1 Tablet(s) PO BID 08/09/20 18 2018 Inactive gabapentin 300 mg capsule RxNorm: 526571 1 Capsule(s) PO TID as needed 08/01/20 18 2018 Inactive hydrochlorothiazide 12.5 mg tablet RxNorm: 000274 1 Tablet(s) PO QAM 08/01/20 18 2018 Inactive ranitidine 150 mg tablet RxNorm: 703781 1 Tablet(s) PO BID 08/01/20 18 2018 Inactive Macrobid 100 mg capsule RxNorm: 822034 1 Capsule(s) PO Q12H 06/21/20 18 2017 Inactive Singulair 10 mg tablet RxNorm: 273690 1 Tablet(s) PO daily 06/14/20 18 2018 Inactive Ventolin HFA 90 mcg/actuation aerosol inhaler RxNorm: 5174655 2 Puff(s) INH QID 06/14/20 18 2018 Inactive Singulair 10 mg tablet RxNorm: 290658 1 Tablet(s) PO daily 06/14/20 18 2017 Inactive buspirone 7.5 mg tablet RxNorm: 208805 1 Tablet(s) PO BID 06/14/20 18 2017 Inactive Prozac 10 mg capsule RxNorm: 104928 1 Capsule(s) PO daily 06/14/20 18 2017 Inactive Neilmed Pediatric Sinus Rinse Refill packet RxNorm: 1 Unit Dose NASAL PRN 05/31/20 18 2021 Inactive diclofenac sodium 75 mg tablet,delayed release RxNorm: 699539 1 Tablet(s) PO BID 05/31/20 18 2017 Inactive lisinopril 2.5 mg tablet RxNorm: 693337 1 Tablet(s) PO daily 05/31/20 18 2017 Inactive metoprolol succinate ER 50 mg tablet,extended release 24 hr RxNorm: 510371 1 Tablet(s) PO daily 05/31/20 18 2017 Inactive levothyroxine 50 mcg tablet RxNorm: 767860 1 Tablet(s) PO daily 05/31/20 18 2017 Inactive TRUEplus Lancets 30 gauge RxNorm: 1 Lancets Miscellaneous QAM 05/31/20 18 2017 Inactive 100/box Ventolin HFA 90 mcg/actuation aerosol inhaler RxNorm: 240677 2 Puff(s) INH QID 05/31/20 18 2017 Inactive Aleve 220 mg capsule RxNorm: 5340568 1 Capsule(s) PO BID 05/31/20 18 2018 Inactive ranitidine 150 mg tablet RxNorm: 955067 1 Tablet(s) PO BID 05/31/20 18 2017 Inactive gabapentin 300 mg capsule RxNorm: 234237 1 Capsule(s) PO TID as needed 05/31/20 18 2017 Inactive atorvastatin 20 mg tablet RxNorm: 525239 1 Tablet(s) PO QHS 05/31/20 18 2017 Inactive True Metrix Glucose Test Strip RxNorm: 1 Test Strips Miscellaneous [facility] 05/31/20 18 2017 Inactive 50/container Calcium 600-D3 Plus 600 mg calcium-800 unit-50 mg tablet RxNorm: 1 Tablet(s) PO daily take an additonal tablet for itching. 05/31/20 18 2017 Inactive hydrochlorothiazide 12.5 mg tablet RxNorm: 048332 1 Tablet(s) PO QAM 05/31/20 18 2017 Inactive Flintstones Complete (iron) 18 mg iron chewable tablet RxNorm: 1 Tablet(s) PO daily 05/31/20 18 2017 Inactive d-mannose oral powder RxNorm: PO 18 2021 Inactive True Metrix Glucose Meter RxNorm: miscellaneous 08/17/20 19 2018 Inactive sertraline 50 mg tablet RxNorm: 644048 1 Tablet(s) PO daily 11/28/19 20 2019 Inactive loperamide 2 mg tablet RxNorm: 169894 oral 09/29/20 19 2018 Inactive Symbicort 160 mcg-4.5 mcg/actuation HFA aerosol inhaler RxNorm: 6455786 2 Puff(s) INH BID 08/17/20 19 2018 Inactive Medication Administered No Medication Administered data Procedures Procedure Codes Date Frailty Screening CPT-4: SFD 05/20/2021 Hypertension CPT-4: HTN 04/01/2021 Tobacco Assessment/Screening CPT-4: TCA 08/2021 Patient Health Questionnaire CPT-4: DPHQ 08/2021 Mini Mental State Exam CPT-4: DMMA Annual Wellness Visit (Subsequent Visit) CPT-4: G0439 01/13/2021 Advanced Care Planning CPT-4: VACP 1 Fall Risk Assessment SNOMED CT: 57877862 4 CPT-4: DFRA1Semmes Fany AssessmentCPT-4: DSWA12/17/2020Urinalysis, dip stickCPT-4: 478618009/24/2020Patient Health QuestionnaireCPT-4: DPHQ 08/19/2020ElectrocardiogramCPT-4: 334813405/14/2020Tobacco Assessment/Screening CPT-4: TCA01/01/2020Fall Risk AssessmentSNOMED CT: 065319749 CPT-4: DFRA01/01/2020Functional AssessmentCPT-4: DFA01/01/2020Semmes Fany AssessmentCPT-4: DSWA11/28/2019Patient Health QuestionnaireCPT-4: DPHQ11/28/2019 Willet Fany AssessmentCPT-4: DSWA10/17/2019HypertensionCPT-4: HTN10/17/[address]: 237849975 CPT-4: DFRA09/19/2019Functional AssessmentCPT-4: DFA111/20/2018Urinalysis, dip stickCPT-4: 6173634Tobacco Assessment/ScreeningCPT-4: TCA05/24/2019 Patient Health QuestionnaireCPT-4: DPHQ05/24/2019AHA/REBECCA Classification AssessmentCPT-4: DAHA04/25/2019Controlled Substance ReportCPT-4: CTRSU04/25/2019 Urinalysis, dip stickCPT-4: 876403503/28/2019Urinalysis, dip stickCPT-4: 30248 03/28/20190655E1A-GspwpjvimucibklHED-5: 70654DmjgfijP9C-ZjboijdaxhgmqlsYTY-1: 62492 AexzbdbM4H-QkzwsodrjkydgeoGCL-8: 68526KkanhexO9N-IscyvqsxeiiaayoCDL-3: 05959 YzimhbeR3D-LdzfccicovyvcotUDP-7: 04719OyzpljfC7D-YgrxrokudvxcreqZYT-2: 23369 HulpkawU4E-KmhlakewykdnabgQID-0: 08293CudscmbWtnkvonpik ReferralSNOMED CT: 221659113 CPT-4: Z11Fcwtuuo Reason For Visit No Reason For Visit data Encounters Encounter Performer Location Location Address Codes Magdi e ([id number]) Other Reason/Patient not seen Diagnosis: Patient not seen[ICD10: UXZ.01]Chivo SalvadorEcho E[address] [place] [address] 39741DFS-1: 310050809/10/2021 Plan of Care Planned Activity Notes Codes Status Date Patient Education: Patient Medication Summary Cmyqdglkk38/09/2021ppointment: Chivo Bishop WPtel: [address] [place] [address] USETV110/13/2020ppointment: Chivo Bishop WPtel: [address] [place] [address] USETV1ppointment: Chivo Bishop WPtel: [address] [place] [address] CGDHLE9406/10/2021ppointment: Anna Culver WPtel: [address] [place] [address] USETV06/02/2021ppointment: Chivo Bishop WPtel: [address] [place] [address] USETV05/20/2021ppointment: Anna Culver WPtel: [address] [place] [address] USETV04/28/2021ppointment: Chivo Bishop WPtel: [address] [place] [address] USETV04/15/2021ppointment: Anna Culver WPtel: [address] [place] [address] [id number]: Anna Culver WPtel: [address] [place] [address] USETV03/24/2021ppointment: Anna Culver WPtel: [address] [facility] [address] [place] [address] USETV03/13/2021ppointment: Anna Culver WPtel: [phone] [place] [address] [place] [address] [id number]: Chivo Bishop WPtel: [phone] [place] [address] [id number]: Anna Culver WPtel: [phone] [place] [address] USETV01/13/2021ppointment: Anna Culver WPtel: [phone] [place] [address] [id number]: Chivo Bishop WPtel: [phone] [place] [address] USETV11/28/2020ppointment: Anna Culver WPtel: [phone] [place] [address] USET11/24/2020ppointment: Anna Culver WPtel: [phone] [place] [address] [id number]: Anna Culver WPtel: [phone] [place] [address] [place] [address] [id number]/25/2019Appointment: Anna Culver WPtel: [phone] [place] [address] [place] [address] USETV110/26/2019Appointment: Anna Culver WPtel: [phone] [place] [address] [place] [address] USETV110/19/2019Appointment: Anna Culver WPtel: [phone] [place] [address] USETV10Appointment: Anna Culver WPtel: [phone] [place] [address] USETV10Appointment: Vinnie Gianna MCtel: [address] [facility] [address] [id number]: Anna Culver WPtel: [address] [place] [address] TRH09707/06/2020Appointment: Anna Culver WPtel: [phone] [place] [address] [id number]: Anna Culver WPtel: [phone] [place] [address] [id number]: Anna Culver WPtel: [phone] [place] [address] [id number]: Anna Culver WPtel: [address] [place] [address] [id number]: Anna Culver WPtel: [address] [place] [address] [id number]: Anna Culver WPtel: [address] [place] [address] [id number]/Appointment: Anna Culver WPtel: [phone] [place] [address] [id number]/Appointment: Anna Culver WPtel: [phone] [place] [address] [id number]/Appointment: Anna Culver WPtel: [address] [place] [address] [place], [place] [id number] FMS9924211/20/2018Appointment: Sudha Hernadez WPtel: [address] [facility] [address] [id number]: Sudha Hernadez WPtel: [address] [facility] [address] [id number]: Charlene Oropeza WPtel: [address] [facility] [address] [id number]: Enedelia [id number]: Charlene Oropeza WPtel: [address] [facility] [address] [id number]: Haupricht, Rasta WPtel: [address] [facility] [address] [id number]: Haupricht, Rasta WPtel: [address] [facility] [address] [id number]: Haupricht, Rasta WPtel: [address] [facility] [address] [id number]: Haupricht, Rasta WPtel: [address] [facility] [address] [id number]: Pending Gynecology Referral InformationReferral ProcessedReferral: Pending Pulmonology Referral InformationReferralProcessed Referral: Pending Psychiatry Referral InformationReferralInitiatedReferral: Pending Respiratory Services Referral InformationReferralInitiatedReferral: Pending Ophthalmology Referral InformationReferralInitiatedReferral: [facility] WPtel: [address] [place] [address] [address] [id number] USWriter placed a call out to the patient to notify her that it has been recommended that she be seenby 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 Patient agreed to be seen, does not have a provider of choice and no transportationissues. Motor Rebuilder faxed referral and clinical notes to [facility] in [place], [place] near the patient's home. Patient to [...] seen and prefers a provider in the [place] or [place] area. Motor Rebuilder placed a call out to everyone listed in the area and the only location that was able to accept the patient's insurance was [address] [address] and spoke with Maylin. Maylin asked that the patient's referral, face sheet and visit notes be faxed to . [employer] Rebuilder faxed over requested documents. Patient appointment confirmation letter generated and mailed to her home address. Patient to call to schedule an appointment.ProcessedReferral: [facility] WPtel: [address] [place] [address] [place], [place] [id number] USPatient notified that it has been advised that she be seen by Neurology. Patient agreed to be seen and prefers to be seen by a provider in the [place], [place] area. Patient denies any concerns with transportation, and prefers to schedule her own appointment. Motor Rebuilder placed a call out to [facility] and spoke with Neeraj [...]
--- OUTSIDE RECORDS SUMMARY | 2021-09-10 20:00 | XMS_ITS | CCD ---
Author Name Chivo Bishop NP Address [address] [place] [address] Phone Organization [facility] Phone Care Team Providers Care Licensed Guide Name Role Phone Palomo KING, Anna Primary Care Provider Unav ailable Unavailable Chronic Care Management Unavaila ble Summary Purpose DataExchange Insurance Providers Payer name Policy type / Coverage type Covered constitution party ID Effective Begin Date Effective End Date SUKI MAYO [id number] Unknown Unknown Family history Mother Diagnosis Age [...] 05/31/2018 Education level Unknown Some High School 10th05/31/20180925BnzahovmxrQhdqfnhVispzrboui28/29/2018Tobacco historySNOMED CT: [id number] never smoked or chewed [id number]/31/2018Alcohol historySNOMED CT: 985521577Ydtvq drinks [id number]/31/2018Has the patient ever used illegal drugs? UnknownHas never used illegal drugs05/31/2018DNR Order/ Advanced Directive UnknownFull Code05/31/2018 Allergies, Adverse Reactions, Alerts Substance Reaction Codes Entered Date Inactivated Date Status OxyContin itch, RxNorm: 617547 01/13/2021 No Inactive Da te Active *No known food allergies Sdlrrul2609/06/2018No Inactive DateActiveMethylprednisolonehivesRxNorm: 6902 09/06/2018No Inactive DateActive Problems Condition Codes Effective Dates Condition St atus Type 2 diabetes mellitus with peripheral neuropathy ICD-10: E11.42 ICD-9: 250.6002ActivePatient not seenICD-10: UXZ.01 ICD-9: UXZ.0112/1ActiveDiarrheaICD-10: R19.7 ICD-9: 787.9111ctiveGERD (gastroesophageal reflux disease)ICD-10: K21.9 ICD-9: 530.8112ActiveHyperlipidemia, unspecifiedICD-10: E78.5 ICD-9: 272.408/ActiveDyspnea, unspecifiedICD-10: R06.00 ICD-9: 786.0902/08/2019ActiveAdjustment disorder with mixed anxiety and depressed moodICD-10: F43.23 ICD-9: 309.28111/06/2017ActiveCOVID-19 virus RNA test result positive at limit of detectionICD-10: U07.1 ICD-9: 079.8909/ctiveUpper respiratory infectionICD-10: J06.9 ICD-9: 465.908ctiveChronic kidney disease, stage 2 (mild)ICD-10: N18.2 ICD-9: 585.ctiveFamily history of seizuresICD-10: Z84.89 ICD-9: V19.807/ctiveHypertensive heart disease with heart failureICD-10: I11.0 ICD-9: 402.9107ActiveSyncope and collapseICD-10: R55 ICD-9: 780.ActiveAnorexiaICD-10: R63.0 ICD-9: [...] ICD-9: V70.004/ctive(Z13.31-V79.0) Encounter for screening for depressionICD-10: Z. ICD-9: V79.004ctiveEncounter for immunizationICD-10: Z23 ICD-9: V04.8109InactiveEssential (primary) hypertensionICD-10: I10 ICD-9: 401.901InactiveApnea, not elsewhere classifiedICD-10: R06.81 ICD-9: 786.0305InactiveChest pain, unspecifiedICD-10: R07.9 ICD-9: 786.5002InactiveChronic kidney disease, unspecifiedICD-10: N18.9 ICD-9: 585.909InactiveEncounter for immunizationICD-10: Z23 ICD-9: V03.907/InactiveEncounter for preprocedural cardiovascular examinationICD-10: Z01.810 ICD-9: V72.8106/InactiveHeadacheICD-10: R51 ICD-9: 784.001InactiveOther fci (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ICD-10: Z79.899 ICD-9: V58.6907InactiveType 2 [...] V76.1207ActiveAdult BMI 50.0-59.9 kg/sq mICD-10: Z68.43 ICD-9: V85.4308ActiveFecal incontinenceICD-10: R15.9 ICD-9: 787.6003/ActiveMixed incontinenceICD-10: N39.46 ICD-9: 788.3308/ActiveAsthmaICD-10: J45.909 ICD-9: 493.9011ActivePatient Not SeenICD-10: UXZ.01 ICD-9: XZ0.107ActiveAbnormal electrocardiogram [ECG] [EKG]ICD-10: R94.31 ICD-9: 794.31005/30/2018ActiveEdema, unspecifiedICD-10: R60.9 ICD-9: 782.310/06/2018ActiveLong term (current) use of non-steroidal anti- inflammatories (NSAID)ICD-10: Z79.1 ICD-9: V58.64006/13/2018Active Medications Medication Codes Instructions Start Date Stop Date Status Fill Instructions Ozempic 0.25 mg or 0.5 mg (2 mg/1.5 mL) subcutaneous pen injector RxNorm: 0438054 Take 0.25 Milligram(s) Subcutaneous once a week 09/11/202021 Inactive Easy Touch Alcohol Prep Pads RxNorm: 782781 USE DIRECTED EACH MORNING 09/03/20 21 2021 Inactive Probiotic 10 billion cell capsule RxNorm: 3868834 Take 1 Capsule(s) Oral every day 08/13/202021 Inactive levothyroxine 50 mcg tablet RxNorm: 979183 Take 1 Tablet(s) Oral every day 08/13/202020 Inactive Acid Ticker Maintainer (famotidine) 20 mg tablet RxNorm: 840133 Take 1 Tablet(s) Oral every morning 08/13/202020 Inactive Heartburn Relief (famotidine) 10 mg tablet RxNorm: 167951 Take 1 Tablet(s) Oral QAM 08/07/20 21 2020 Inactive levothyroxine 50 mcg tablet RxNorm: 637439 Take 1 Tablet(s) Oral QD 08/07/20 21 2020 Inactive metformin 1,000 mg tablet RxNorm: 801894 1 Tablet(s) Oral two times a day 07/16/202021 Inactive Singulair 10 mg tablet RxNorm: 921267 TAKE (1) TABLET BY MOUTH DAILY 07/16/20 21 2020 Inactive lisinopril 2.5 mg tablet RxNorm: 933791 Take 1 Tablet(s) Oral every day 07/11/20 21 2020 Inactive hydrochlorothiazide 25 mg tablet RxNorm: 627926 Take 1 Tablet(s) Oral every day 06/12/20 21 2020 Inactive ondansetron 4 mg disintegrating tablet RxNorm: 247823 1 Tablet(s) Oral two times a day 06/10/20 21 2020 Inactive Sudafed 12 Hour 120 mg tablet,extended release RxNorm: 0523875 TAKE 1 TABLET BY MOUTH EVERY 12 HOURS NEEDED 06/01/20 21 2021 Inactive Heartburn Relief (famotidine) 10 mg tablet RxNorm: 008520 Take 1 Tablet(s) Oral every morning 05/07/20 21 2020 Inactive omeprazole 20 mg capsule,delayed release RxNorm: 510093 1 Capsule(s) Oral every evening 04/03/20 21 2020 Inactive sertraline 100 mg tablet RxNorm: 114589 2 Tablet(s) Oral every day 03/13/20 21 2020 Inactive levothyroxine 50 mcg tablet RxNorm: 751323 TAKE (1) TABLET BY MOUTH DAILY 02/04/20 21 2020 Inactive metformin 500 mg tablet RxNorm: 306821 1 Tablet(s) Oral two times a day take with 500mg to equal 1000mg 01/14/20 21 2020 Inactive gabapentin 300 mg capsule RxNorm: 585755 TAKE 1 CAPSULE BY MOUTH THREE TIMES A DAY 01/14/20 21 2020 Inactive lisinopril 2.5 mg tablet RxNorm: 285657 TAKE 1 TABLET BY MOUTH DAILY 01/06/20 21 2020 Inactive gabapentin 300 mg capsule RxNorm: 425594 TAKE 1 CAPSULE BY MOUTH THREE TIMES A DAY 01/06/20 21 2020 Inactive Singulair 10 mg tablet RxNorm: 004856 TAKE (1) TABLET BY MOUTH DAILY 01/06/20 21 2020 Inactive metformin 1,000 mg tablet RxNorm: 282268 1 Tablet(s) Oral two times a day 01/06/20 21 2020 Inactive atorvastatin 40 mg tablet RxNorm: 161375 1 Tablet(s) Oral every day 12/06/19 21 2020 Inactive omeprazole 20 mg capsule,delayed release RxNorm: 589611 1 Capsule(s) Oral every evening 11/24/19 21 2020 Inactive famotidine 10 mg tablet RxNorm: 503420 1 Tablet(s) Oral every morning 11/24/19 21 2020 Inactive Alcohol Prep Pads RxNorm: 365082 USE EACH MORNING 10/14/19 21 2020 Inactive omeprazole 20 mg capsule,delayed release RxNorm: 367620 1 Capsule(s) Oral two times a day 10/13/19 21 2021 Inactive omeprazole 20 mg capsule,delayed release RxNorm: 284608 TAKE 1 CAPSULE BY MOUTH EVERY DAY 10/08/19 21 2021 Inactive Macrobid 100 mg capsule RxNorm: 033870 1 Capsule(s) Oral every 12 hours with food 10/01/20 20 2020 Inactive omeprazole 20 mg capsule,delayed release RxNorm: 059244 1 Capsule(s) Oral two times a day 09/24/20 20 2021 Inactive metformin 1,000 mg tablet RxNorm: 481284 1 Tablet(s) Oral two times a day 08/19/20 20 2020 Inactive start on September 11, 2020 metformin 500 mg tablet RxNorm: 366376 1 Tablet(s) Oral two times a day take with 500mg to equal 1000mg 08/19/20 20 2019 Inactive gabapentin 300 mg capsule RxNorm: 522872 TAKE 1 CAPSULE BY MOUTH THREE TIMES DAILY 07/11/20 20 2020 Inactive cetirizine 10 mg tablet RxNorm: 0013753 TAKE (1) TABLET BY MOUTH DAILY 07/11/20 20 2020 Inactive metformin 500 mg tablet RxNorm: 799452 1 Tablet(s) Oral two times a day 07/08/20 20 2019 Inactive loperamide 2 mg tablet RxNorm: 562423 1 Tablet(s) Oral as needed take one tablet after each loose stool, maximum of 8 tablets in 24 hours 06/24/20 20 2021 Inactive Sudafed 12 Hour 120 mg tablet,extended release RxNorm: 0522492 TAKE 1 TABLET BY MOUTH EVERY 12 HOURS NEEDED 06/11/20 20 2019 Inactive hydrochlorothiazide 25 mg tablet RxNorm: 583495 TAKE (1) TABLET BY MOUTH EVERY DAY 06/11/20 20 2019 Inactive omeprazole 20 mg capsule,delayed release RxNorm: 100362 TAKE 1 CAPSULE BY MOUTH EVERY DAY 05/14/20 20 2020 Inactive metformin 500 mg tablet RxNorm: 471339 1 Tablet(s) Oral every day 05/12/20 20 2019 Inactive True Metrix Glucose Test Strip RxNorm: 1 Test Strips Miscellaneous two times a day as needed 04/17/20 No Stop Date Active metformin 500 mg tablet RxNorm: 811681 1 Tablet(s) Oral every day 04/17/20 20 2019 Inactive diclofenac sodium 75 mg tablet,delayed release RxNorm: 431628 1 Tablet(s) PO BID 04/14/20 20 2021 Inactive This refill negates all other refills of this medication Sudafed 12 Hour 120 mg tablet,extended release RxNorm: 5238567 TAKE 1 TABLET BY MOUTH EVERY 12 HOURS NEEDED 03/14/20 20 2019 Inactive True Metrix Glucose Test Strip RxNorm: 1 Test Strips Miscellaneous every morning 03/13/20 20 2019 Inactive 100/container True Metrix Glucose Test Strip RxNorm: 1 Test Strips Miscellaneous QA 02/22/20 20 2019 Inactive 100/container loperamide 2 mg tablet RxNorm: 149284 1 Tablet(s) Oral as needed take one tablet after each loose stool, maximum of 8 tablets in 24 hours 02/22/20 20 2019 Inactive cetirizine 10 mg tablet RxNorm: 9068842 1 Tablet(s) PO daily 01/17/20 20 2019 Inactive loperamide 2 mg tablet RxNorm: 856959 1 Tablet(s) Oral as needed take one tablet after each loose stool, maximum of 8 tablets in 24 hours 01/17/20 20 2019 Inactive quetiapine 100 mg tablet RxNorm: 418832 1 Tablet(s) Oral every night at bedtime 01/17/20 20 2019 Inactive levothyroxine 50 mcg tablet RxNorm: 510299 1 Tablet(s) PO daily 01/17/20 20 2020 Inactive gabapentin 300 mg capsule RxNorm: 868470 1 Capsule(s) PO TID 01/17/20 20 2019 Inactive levothyroxine 50 mcg tablet RxNorm: 768259 1 Tablet(s) PO daily 01/15/20 20 2019 Inactive lisinopril 2.5 mg tablet RxNorm: 868312 1 Tablet(s) PO daily 01/15/20 20 2020 Inactive gabapentin 300 mg capsule RxNorm: 017737 1 Capsule(s) PO TID 01/15/20 20 2019 Inactive cetirizine 10 mg tablet RxNorm: 3407320 1 Tablet(s) PO daily 01/15/20 20 2019 Inactive Singulair 10 mg tablet RxNorm: 889289 1 Tablet(s) PO daily 01/15/20 20 2020 Inactive gentamicin 0.3 % eye drops RxNorm: 740629 1 Drop(s) ophthalmic (eye) four times a day 12/29/19 20 2019 Inactive gentamicin 0.3 % eye drops RxNorm: 215941 1 Drop(s) ophthalmic (eye) four times a day 12/29/19 20 2019 Inactive gentamicin 0.3 % eye drops RxNorm: 313873 1 Drop(s) ophthalmic (eye) four times a day 12/29/19 20 2019 Inactive hydrochlorothiazide 25 mg tablet RxNorm: 762301 1 Tablet(s) Oral every day 12/21/19 20 2019 Inactive Sudafed 12 Hour 120 mg tablet,extended release RxNorm: 2867266 TAKE (1) TABLET BY MOUTH EVERY 12 HOURS NEEDED 12/21/19 20 2019 Inactive loperamide 2 mg tablet RxNorm: 035370 1 Tablet(s) Oral as needed take one tablet after each loose stool, maximum of 8 tablets in 24 hours 12/11/19 20 2019 Inactive loperamide 2 mg tablet RxNorm: 858134 1 Tablet(s) Oral as needed take one tablet after each loose stool, maximum of 8 tablets in 24 hours 12/11/19 20 2019 Inactive atorvastatin 40 mg tablet RxNorm: 492789 1 Tablet(s) Oral every day 11/29/19 20 2020 Inactive quetiapine 100 mg tablet RxNorm: 475776 1 Tablet(s) Oral every night at bedtime 11/28/19 20 2019 Inactive sertraline 100 mg tablet RxNorm: 568155 1 Tablet(s) Oral 11/28/19 20 2019 Inactive omeprazole 20 mg capsule,delayed release RxNorm: 819687 1 Capsule(s) Oral every day 11/20/19 20 2019 Inactive amoxicillin 250 mg capsule RxNorm: 262021 1 Capsule(s) Oral three times a day 11/07/19 20 2019 Inactive multivitamin with iron-mineral tablet RxNorm: 1 Tablet(s) Oral every day 10/29/19 20 2021 Inactive cetirizine 10 mg tablet RxNorm: 4053960 1 Tablet(s) PO daily 10/20/19 20 2019 Inactive This refill negates all other refills of this medication. Please do not auto refill Singulair 10 mg tablet RxNorm: 424274 1 Tablet(s) PO daily 10/20/19 20 2019 Inactive This refill negates all other refills of this medication gabapentin 300 mg capsule RxNorm: 855728 1 Capsule(s) PO TID 10/20/19 20 2019 Inactive lisinopril 2.5 mg tablet RxNorm: 515827 1 Tablet(s) PO daily 10/20/19 20 2019 Inactive levothyroxine 50 mcg tablet RxNorm: 408680 1 Tablet(s) PO daily 10/20/19 20 2019 Inactive This refill negates all other refills of this medication fenugreek seed extract 500 mg capsule RxNorm: 1 Capsule(s) Oral three times a day 10/17/19 20 2021 Inactive hydrochlorothiazide 25 mg tablet RxNorm: 334865 1 Tablet(s) Oral every day 10/17/19 20 2019 Inactive Alcohol Prep Pads RxNorm: 242893 1 Patch TOP QAM 10/16/19 20 2020 Inactive loperamide 2 mg tablet RxNorm: 740573 1 Tablet(s) Oral as needed take one [...] 30 gauge RxNorm: 1 Lancets Miscellaneous QA 09/22/20 19 2019 Inactive 100/box fenugreek seed extract 500 mg capsule RxNorm: 1 Capsule(s) Oral three times a day 09/19/20 19 2019 Inactive hydrochlorothiazide 25 mg tablet RxNorm: 325075 1 Tablet(s) Oral every day 09/19/20 19 2019 Inactive Sudafed 12 Hour 120 mg tablet,extended release RxNorm: 0956534 1 Tablet(s) Oral every 12 hours as needed 09/11/20 19 2018 Inactive omeprazole 20 mg capsule,delayed release RxNorm: 585201 1 Capsule(s) Oral every day 09/07/20 19 2019 Inactive Sudafed 12 Hour 120 mg tablet,extended release RxNorm: 2715059 1 Tablet(s) Oral every 12 hours as needed 09/04/20 19 2018 Inactive pantoprazole 40 mg tablet,delayed release RxNorm: 494924 1 Tablet(s) Oral every day 08/24/20 19 2018 Inactive discontinue any other H2Blkr. and PPI albuterol sulfate 2.5 mg/3 mL (0.083 %) solution for nebulization RxNorm: 792531 1 Vial Inhalation every four hours as needed as needed for dyspnea 08/17/20 19 2019 Inactive 60/box. This refill negates all other refills of this medication. Please do not fill early. Please do not auto refill. Symbicort 160 mcg-4.5 mcg/actuation HFA aerosol inhaler RxNorm: 0732835 2 Puff(s) INH BID 08/17/20 19 No Stop Date Active Alcohol Prep Pads RxNorm: 622110 1 Patch TOP QAM 08/17/20 19 2019 Inactive Ventolin HFA 90 mcg/actuation aerosol inhaler RxNorm: 832086 2 Puff(s) INH QID 08/09/20 19 2019 Inactive Please do not fill early. Please do not auto refill. This refill negates all other refills of this medication True Metrix Glucose Test Strip RxNorm: 1 Test Strips Miscellaneous QAM 08/09/20 19 2019 Inactive 100/container atorvastatin 40 mg tablet RxNorm: 264212 1 Tablet(s) Oral every day 07/04/20 19 2019 Inactive levmetamfetamine 50 mg nasal inhaler RxNorm: 1 Unit(s) NASAL Q3-4H Do not use more than every 3 hours or 8 times/24hours 06/26/20 19 2021 Inactive Please do not auto refill. This refill negates all other refills of this medication buspirone 7.5 mg tablet RxNorm: 816497 1 Tablet(s) PO BID 06/26/20 19 2020 Inactive This refill negates all other refills of this medication hydrochlorothiazide 12.5 mg tablet RxNorm: 250798 1 Tablet(s) PO QAM 06/26/20 19 2019 Inactive Ventolin HFA 90 mcg/actuation aerosol inhaler RxNorm: 244488 2 Puff(s) INH QID 06/26/20 19 2018 Inactive Please do not fill early. Please do not auto refill. This refill negates all other refills of this medication Singulair 10 mg tablet RxNorm: 109601 1 Tablet(s) PO daily 06/26/20 19 2019 Inactive This refill negates all other refills of this medication cetirizine 10 mg tablet RxNorm: 6560849 1 Tablet(s) PO daily 06/26/20 19 2019 Inactive This refill negates all other refills of this medication. Please do not auto refill levothyroxine 50 mcg tablet RxNorm: 646454 1 Tablet(s) PO daily 06/26/20 19 2019 Inactive This refill negates all other refills of this medication diclofenac sodium 75 mg tablet,delayed release RxNorm: 196889 1 Tablet(s) PO BID 06/26/20 19 2019 Inactive This refill negates all other refills of this medication ranitidine 150 mg tablet RxNorm: 504757 1 Tablet(s) PO BID 06/26/20 19 2018 Inactive This refill negates all other refills of this medication Calcium 600-D3 Plus (mag-zinc) 600 mg calcium-800 unit-50 mg tablet RxNorm: 1 Tablet(s) PO daily take an additonal tablet for itching. 06/26/20 19 2018 Inactive This refill negates all other refills of this medication albuterol sulfate 2.5 mg/3 mL (0.083 %) solution for nebulization RxNorm: 888933 1 Vial INH QID 06/26/20 19 2018 Inactive 60/box. This refill negates all other refills of this medication. Please do not fill early. Please do not auto refill. lisinopril 2.5 mg tablet RxNorm: 406697 1 Tablet(s) PO daily 06/21/20 19 2019 Inactive gabapentin 300 mg capsule RxNorm: 963082 1 Capsule(s) PO TID 06/21/20 19 2019 Inactive atorvastatin 20 mg tablet RxNorm: 621655 1 Tablet(s) PO QHS 06/07/20 19 2018 Inactive This refill negates all other refills of this medication TRUEplus Lancets 30 gauge RxNorm: 1 Lancets Miscellaneous QAM 05/29/20 19 2018 Inactive 100/box gabapentin 300 mg capsule RxNorm: 603835 1 Capsule(s) PO TID 05/03/20 19 2018 Inactive Flintstones Complete (iron) 18 mg iron chewable tablet RxNorm: 1 Tablet(s) PO daily 04/04/202021 Inactive This refill negates all other refills of this medication gabapentin 300 mg capsule RxNorm: 141169 1 Capsule(s) PO TID as needed 02/01/202018 Inactive True Metrix Glucose Test Strip RxNorm: 1 Test Strips Miscellaneous QAM 02/01/202018 Inactive 100/container Alcohol Prep Pads RxNorm: 690507 1 Patch TOP QAM 02/01/202018 Inactive TRUEplus Lancets 30 gauge RxNorm: 1 Lancets Miscellaneous QAM 02/01/202018 Inactive 100/box lisinopril 2.5 mg tablet RxNorm: 623493 1 Tablet(s) PO daily 12/28/192018 Inactive ranitidine 150 mg tablet RxNorm: 739698 1 Tablet(s) PO BID 10/21/192018 Inactive This refill negates all other refills of this medication albuterol sulfate 2.5 mg/3 mL (0.083 %) solution for nebulization RxNorm: 260035 1 Vial INH QID 10/21/192018 Inactive 60/box. [...] this medication gabapentin 300 mg capsule RxNorm: 529290 1 Capsule(s) PO TID as needed 10/21/192018 Inactive atorvastatin 20 mg tablet RxNorm: 422395 1 Tablet(s) PO QHS 10/21/192018 Inactive This refill negates all other refills of this medication trazodone 50 mg tablet RxNorm: 220520 1 Tablet(s) PO QHS 01/192018 Inactive This refill negates all other refills of this medication Ventolin HFA 90 mcg/actuation aerosol inhaler RxNorm: 864252 2 Puff(s) INH QID 10/21/192018 Inactive Please do not fill early. Please do not auto refill. This refill negates all other refills of this medication Calcium 600-D3 Plus 600 mg calcium-800 unit-50 mg tablet RxNorm: 1 Tablet(s) PO daily take an additonal tablet for itching. 10/21/19 19 2018 Inactive This refill negates all other refills of this medication Singulair 10 mg tablet RxNorm: 765157 1 Tablet(s) PO daily 10/21/192018 Inactive This refill negates all other refills of this medication buspirone 7.5 mg tablet RxNorm: 768823 1 Tablet(s) PO BID 10/21/192018 Inactive This refill negates all other refills of this medication diclofenac sodium 75 mg tablet,delayed release RxNorm: 540476 1 Tablet(s) PO BID 10/21/192018 Inactive This refill negates all other refills of this medication hydrochlorothiazide 12.5 mg tablet RxNorm: 757810 1 Tablet(s) PO QAM 10/21/192018 Inactive metoprolol succinate ER 50 mg tablet,extended release 24 hr RxNorm: 635988 1 Tablet(s) PO daily 10/21/192018 Inactive This refill negates all other refills of this medication levothyroxine 50 mcg tablet RxNorm: 459830 1 Tablet(s) PO daily 10/21/192018 Inactive This refill negates all other refills of this medication cetirizine 10 mg tablet RxNorm: 7360444 1 Tablet(s) PO daily 10/21/192018 Inactive This refill negates all other refills of this medication. Please do not auto refill Flintstones Complete (iron) 18 mg iron chewable tablet RxNorm: 1 Tablet(s) PO daily 10/21/192018 Inactive This refill negates all other refills of this medication buspirone 7.5 mg tablet RxNorm: 021719 1 Tablet(s) PO BID 10/12/19 19 2018 Inactive cetirizine 10 mg tablet RxNorm: 7958227 1 Tablet(s) PO daily 09/28/20 18 2018 Inactive Guaiasorb DM 10 mg-100 mg/5 mL oral liquid RxNorm: 190207 10 Milliliter(s) PO As needed every 4 hr 09/24/20 18 2018 Inactive Vicks Vaporub 4.7 %-1.2 %-2.6 % topical ointment RxNorm: 2411351 1 Application TOP TID 09/24/20 18 2018 Inactive levmetamfetamine 50 mg nasal inhaler RxNorm: 1 Unit(s) NASAL Q3-4H 09/24/20 18 2017 Inactive sertraline 50 mg tablet RxNorm: 568497 1 Tablet(s) PO daily 09/09/20 18 2018 Inactive Please note dose trazodone 50 mg tablet RxNorm: 221989 1 Tablet(s) PO QHS 09/06/20 18 2018 Inactive sertraline 50 mg tablet RxNorm: 507697 1 Tablet(s) PO daily 09/06/20 18 2017 Inactive amoxicillin 500 mg tablet RxNorm: 138224 1 Tablet(s) PO Q12H 08/31/20 18 2017 Inactive albuterol sulfate 2.5 mg/3 mL (0.083 %) solution for nebulization RxNorm: 963266 1 Vial INH QID 08/10/20 18 2018 Inactive 60/box. Please do not fill early. Please do not auto refill. Prozac 10 mg capsule RxNorm: 118921 1 Capsule(s) PO daily 08/09/20 18 2017 Inactive buspirone 7.5 mg tablet RxNorm: 163978 1 Tablet(s) PO BID 08/09/20 18 2018 Inactive gabapentin 300 mg capsule RxNorm: 476107 1 Capsule(s) PO TID as needed 08/01/20 18 2018 Inactive hydrochlorothiazide 12.5 mg tablet RxNorm: 827463 1 Tablet(s) PO QAM 08/01/20 18 2018 Inactive ranitidine 150 mg tablet RxNorm: 406322 1 Tablet(s) PO BID 08/01/20 18 2018 Inactive Macrobid 100 mg capsule RxNorm: 153445 1 Capsule(s) PO Q12H 06/21/20 18 2017 Inactive Singulair 10 mg tablet RxNorm: 748672 1 Tablet(s) PO daily 06/14/20 18 2018 Inactive Ventolin HFA 90 mcg/actuation aerosol inhaler RxNorm: 3642436 2 Puff(s) INH QID 06/14/20 18 2018 Inactive Singulair 10 mg tablet RxNorm: 834826 1 Tablet(s) PO daily 06/14/20 18 2017 Inactive buspirone 7.5 mg tablet RxNorm: 817613 1 Tablet(s) PO BID 06/14/20 18 2017 Inactive Prozac 10 mg capsule RxNorm: 808691 1 Capsule(s) PO daily 06/14/20 18 2017 Inactive Neilmed Pediatric Sinus Rinse Refill packet RxNorm: 1 Unit Dose NASAL PRN 05/31/20 18 2021 Inactive diclofenac sodium 75 mg tablet,delayed release RxNorm: 399288 1 Tablet(s) PO BID 05/31/20 18 2017 Inactive lisinopril 2.5 mg tablet RxNorm: 782764 1 Tablet(s) PO daily 05/31/20 18 2017 Inactive metoprolol succinate ER 50 mg tablet,extended release 24 hr RxNorm: 978493 1 Tablet(s) PO daily 05/31/20 18 2017 Inactive levothyroxine 50 mcg tablet RxNorm: 619819 1 Tablet(s) PO daily 05/31/20 18 2017 Inactive TRUEplus Lancets 30 gauge RxNorm: 1 Lancets Miscellaneous QAM 05/31/20 18 2017 Inactive 100/box Ventolin HFA 90 mcg/actuation aerosol inhaler RxNorm: 538058 2 Puff(s) INH QID 05/31/20 18 2017 Inactive Aleve 220 mg capsule RxNorm: 1874741 1 Capsule(s) PO BID 05/31/20 18 2018 Inactive ranitidine 150 mg tablet RxNorm: 464129 1 Tablet(s) PO BID 05/31/20 18 2017 Inactive gabapentin 300 mg capsule RxNorm: 678951 1 Capsule(s) PO TID as needed 05/31/20 18 2017 Inactive atorvastatin 20 mg tablet RxNorm: 883516 1 Tablet(s) PO QHS 05/31/20 18 2017 Inactive True Metrix Glucose Test Strip RxNorm: 1 Test Strips Miscellaneous QAM 05/31/20 18 2017 Inactive 50/container Calcium 600-D3 Plus 600 mg calcium-800 unit-50 mg tablet RxNorm: 1 Tablet(s) PO daily take an additonal tablet for itching. 05/31/20 18 2017 Inactive hydrochlorothiazide 12.5 mg tablet RxNorm: 514568 1 Tablet(s) PO QAM 05/31/20 18 2017 Inactive Flintstones Complete (iron) 18 mg iron chewable tablet RxNorm: 1 Tablet(s) PO daily 05/31/20 18 2017 Inactive d-mannose oral powder RxNorm: PO 18 2021 Inactive True Metrix Glucose Meter RxNorm: miscellaneous 08/17/20 19 2018 Inactive sertraline 50 mg tablet RxNorm: 336924 1 Tablet(s) PO daily 11/28/19 20 2019 Inactive loperamide 2 mg tablet RxNorm: 295382 oral 09/29/20 19 2018 Inactive Symbicort 160 mcg-4.5 mcg/actuation HFA aerosol inhaler RxNorm: 4316765 2 Puff(s) INH BID 08/17/20 19 2018 Inactive Medication Administered No Medication Administered data Procedures Procedure Codes Date Frailty Screening CPT-4: SFD 05/20/2021 Hypertension CPT-4: HTN 04/01/2021 Tobacco Assessment/Screening CPT-4: TCA 08/2021 Patient Health Questionnaire CPT-4: DPHQ 08/2021 Mini Mental State Exam CPT-4: DMMA 1 Annual Wellness Visit (Subsequent Visit) CPT-4: G0439 01/13/2021 Advanced Care Planning CPT-4: V[id number] CPT-4: DFRA01/13/2021emmes Fany AssessmentCPT-4: DSWA12/17/2020Urinalysis, dip stickCPT-4: 055807709/24/2020Patient Health QuestionnaireCPT-4: DPHQ 08/19/2020ElectrocardiogramCPT-4: 3772995Tobacco Assessment/Screening CPT-4: TCA01/01/2020Fall Risk AssessmentSNOMED CT: [id number] CPT-4: DFRA01/01/2020Functional AssessmentCPT-4: DFA01/01/2020[place] Fany AssessmentCPT-4: DSWA11/28/2019Patient Health QuestionnaireCPT-4: DPHQ11/28/2019 [place] Fany AssessmentCPT-4: DSWA10/17/2019HypertensionCPT-4: HTN10/17/[address]: [id number] CPT-4: DFRA09/19/2019Functional AssessmentCPT-4: DFA111/20/2018Urinalysis, dip stickCPT-4: 654807906/21/2019Tobacco Assessment/ScreeningCPT-4: TCA05/24/2019 Patient Health QuestionnaireCPT-4: DPHQ05/24/2019AHA/REBECCA Classification AssessmentCPT-4: DAHA04/25/2019Controlled Substance ReportCPT-4: CTRSU04/25/2019 Urinalysis, dip stickCPT-4: 342970903/28/2019Urinalysis, dip stickCPT-4: 33736 03/28/20190823W1B-YzebsjvjigistsqNLC-8: 20853YczmrxeI6N-GnbbttidldweaxePHM-3: 06769 VnpvjaoV8S-JgxkykniqgxxsshOYZ-8: 14147JgoiaueS9Z-CzvfffkkcmwblgnQYI-0: 60149 ZgepaioY7A-TcriayxiukuqqivOWY-8: 61449RrypnznZ6E-AdtyhffumkookjhTNL-2: 48774 WlsowofV4P-TwaeqwbaavfkndeNON-8: 82559TenjgtxAvvdvdilwa [facility]erralS[facility]: [id number] CPT-4: X52Gjpooxt Reason For Visit No Reason For Visit data Plan of Care Planned Activity Notes Codes Status Date Patient Education: Patient Medication Summary Vedcxlawy40/10/2021are Plan: External Laboratory CwqqkYxwwxnc90/10/2021 Appointment: Chivo Bishop WPtel: [address] [place] [address] USETV111/11/2020ppointment: Chivo Bishop WPtel: [address] [place] [address] USETV110/13/2020ppointment: Chivo Bishop WPtel: [address] [place] [address] USETV1ppointment: Chivo Bishop WPtel: [address] [place] [address] IBHQOU3006/10/2021ppointment: Anna Culver WPtel: [address] [place] [address] USETV06/02/2021ppointment: Chivo Bishop WPtel: [address] [place] [address] USETV05/20/2021ppointment: Anna Culver WPtel: [address] [place] [address] USETV04/28/2021ppointment: Chivo Bishop WPtel: [address] [place] [address] USETV04/15/2021ppointment: Anna Culver WPtel: [address] [place], [place] [id number]: Anna Culver WPtel: [phone] [place] [address] USETV03/24/2021ppointment: Anna Culver WPtel: [phone] [place] [address] USETV03/13/2021ppointment: Anna Culver WPtel: [phone] [place] [address] [id number]: Chivo Bishop WPtel: [phone] [place] [address] [id number]: Anna Culver WPtel: [address] [place] [address] USETV01/13/2021ppointment: Anna Culver WPtel: [phone] [place] [address] [id number]: Chivo Bishop WPtel: [address] [place] [address] USET11/28/2020ppointment: Anna Culver WPtel: [phone] [place] [address] USETV11/24/2020ppointment: Anna Culver WPtel: [phone] [place] [address] [id number]: Anna Culver WPtel: [phone] [place] [address] [id number]: Anna Culver WPtel: [address] [place] [address] USETV110/26/2019Appointment: Anna Culver WPtel: [address] [facility] [address] [place] [address] USETV11/Appointment: Anna Culver WPtel: [phone] [place] [address] [address] [place] [address] USETV10Appointment: Anna Culver WPtel: [phone] [place] [address] [address] [place] [address] USETV10Appointment: Gianna Birmingham MCt: [address] [facility] [address] [id number]: Anna Culver WPtel: [phone] [place] [address] RTT39705/06/2020Appointment: nAna Culver WPtel: [phone] [place] [address] [id number]: Anna Culver WPtel: [phone] [place] [address] [id number]/Appointment: Anna Culver WPtel: [phone] [place] [address] [id number]/Appointment: Anna Culver WPtel: [phone] [place] [address] [place] [address] [id number]/Appointment: Anna Culver WPtel: [phone] [place] [address] [place] [address] [id number]/Appointment: Anna Culver WPtel: [phone] [place] [address] [id number]/Appointment: Anna Culver WPtel: [phone] [place] [address] [id number]/Appointment: Anna Culver WPtel: [address] [place] [address] [place], [place] [id number]: Anna Culver WPtel: [address] [place] [address] [place], [place] [id number]: Maricarmen, Sudha WPtel: [address] [facility] [address] [id number]: Maricarmen, Sudha WPtel: [address] [facility] [address] [id number]: Charlene Oropeza WPtel: [address] [facility] [address] [id number]: Arthur DelgadooE45Appointment: Charlene Oropeza WPtel: [address] [facility] [address] [id number]: Haupricht, Rasta WPtel: [address] [facility] [address] [id number]: Haupricht, Rasta WPtel: [address] [facility] [address] [id number]: Haupricht, Rasta WPtel: [address] [facility] [address] [id number]: Haupricht, Rasta WPtel: [address] [facility] [address] [id number]: Pending Gynecology Referral InformationReferral ProcessedReferral: Pending Pulmonology Referral InformationReferralProcessed Referral: Pending Psychiatry Referral InformationReferralInitiatedReferral: Pending Respiratory Services Referral InformationReferralInitiatedReferral: Pending Ophthalmology Referral InformationReferralInitiatedReferral: [facility] WPtel: [address] [facility] [address] DowFmozbcyPS[address] USWriter placed a call out to the patient to notify her that it has been recommended that she be seenby 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 Patient agreed to be seen, does not have a provider of choice and no transportationissues. Director Of [employer] faxed referral and clinical notes to [facility] in [place], [place] near the patient's home. Patient to [...] seen and prefers a provider in the [place] or [place] area. Director Of [employer] placed a call out to everyone listed in the area and the only location that was able to accept the patient's insurance was [address] [phone] and spoke with Mayiln. Maylin asked that the patient's referral, face sheet and visit notes be faxed to . Director Of [employer] faxed over requested documents. Patient appointment confirmation letter generated and mailed to her home address. Patient to call to schedule an appointment.ProcessedReferral: [facility] WPtel: [address] [facility] [address] [id number] USPatient notified that it has been advised that she be seen by Neurology. Patient agreed to be seen and prefers to be seen by a provider in the [place], [place] area. Patient denies any concerns with transportation, and prefers to schedule her own appointment. Director Of [employer] [facility] and spoke with Neeraj Mcfarland: who confirmed that their office is able to acceptnew patients and the patient's insurance. After confirming the providers fax number, real estate underwriter faxed over the patient's referral, and [...]
--- OUTSIDE RECORDS SUMMARY | 2021-10-07 20:00 | XMS_ITS | CCD ---
Author Name Chivo Bishop [place] Address [address] [place] [address] Phone Organization [facility] Phone Care Team Providers Care Turpentiner Name Role Phone Palomo KING, Anna Primary Care Provider Unav ailable Unavailable Chronic Care Management Unavaila ble Summary Purpose DataExchange Insurance Providers Payer name Policy type / Coverage type Covered republican ID Effective Begin Date Effective End Date SUKI BUTTS MARIA ESTHER [id number] Unknown Unknown Family history Mother Diagnosis Age [...] 05/31/2018 Education level Unknown Some High School 10th05/31/20181464MsuhmszrilIdwgdwfBxnvadpvap26/29/2018Tobacco historySNOMED CT: 093908715Rmm never smoked or chewed [id number]/31/2018Alcohol historySNOMED CT: 975410205Wzhep drinks [id number]/31/2018Has the patient ever used illegal drugs? UnknownHas never used illegal drugs05/31/2018DNR Order/ Advanced Directive UnknownFull Code05/31/2018 Allergies, Adverse Reactions, Alerts Substance Reaction Codes Entered Date Inactivated Date Status OxyContin itch, RxNorm: 666836 01/13/2021 No Inactive Da te Active *No known food allergies Johemcc3309/06/2018No Inactive DateActiveMethylprednisolonehivesRxNorm: 6902 09/06/2018No Inactive DateActive Problems Condition Codes Effective Dates Condition St atus Adult BMI 50.0-59.9 kg/sq m ICD-10: Z68. 43 ICD-9: V85.4308/ActiveDiarrheaICD-10: R19.7 ICD-9: 787.9111/1ActiveFamily history of seizuresICD-10: Z84.89 ICD-9: V19.807/1ActiveSyncope and collapseICD-10: R55 ICD-9: 780.ActiveType 2 diabetes mellitus with peripheral neuropathy ICD-10: E11.42 ICD-9: 250.60011/28/2019ActivePatient not seenICD-10: UXZ.01 ICD-9: UXZ.01111/11/2020ctiveGERD (gastroesophageal reflux disease)ICD-10: K21.9 ICD-9: 530.8112ActiveHyperlipidemia, unspecifiedICD-10: E78.5 ICD-9: 272.408ActiveDyspnea, unspecifiedICD-10: R06.00 ICD-9: 786.0902/08/2019ActiveAdjustment disorder with mixed anxiety and depressed moodICD-10: F43.23 ICD-9: 309.28111/06/2017ActiveCOVID-19 virus RNA test result positive at limit of detectionICD-10: U07.1 ICD-9: 079.8909/ctiveUpper respiratory infectionICD-10: J06.9 ICD-9: 465.908/ctiveChronic kidney disease, stage 2 (mild)ICD-10: N18.2 ICD-9: 585.201/1ActiveHypertensive heart disease with heart failureICD-10: I11.0 ICD-9: 402.9107ActiveAnorexiaICD-10: R63.0 ICD-9: 783.003/1ActivePost-traumatic stress disorder, unspecifiedICD-10: F43.10 ICD-9: 309.8112ActiveBlisterICD-10: T14.8XXA ICD-9: 919.1ActiveObstructive sleep apnea (adult) (pediatric)ICD-10: G47.33 ICD-9: 327.2309/ActiveEncounter for screening for tobacco useICD-10: Z01.89 ICD-9: V72.8503ActiveElevated liver enzymesICD-10: R74.8 ICD-9: 790.504/ctiveHistory of bladder surgeryICD-10: Z98.890 ICD-9: V45.8904/ctiveUrinary retention with incomplete bladder emptying ICD-10: R33.9 ICD-9: 788.2104/ctive(Z00.01-V70.0) Encounter for general adult medical examination with abnormal findingsICD-10: Z00.01 ICD-9: V70.004/ctive(Z13.31-V79.0) Encounter for screening for depressionICD-10: Z13.31 ICD-9: V79.004ctiveEncounter for immunizationICD-10: Z23 ICD-9: V04.8109InactiveEssential (primary) hypertensionICD-10: I10 ICD-9: 401.901InactiveApnea, not elsewhere classifiedICD-10: R06.81 ICD-9: 786.0305InactiveChest pain, unspecifiedICD-10: R07.9 ICD-9: 786.5002InactiveChronic kidney disease, unspecifiedICD-10: N18.9 ICD-9: 585.909/InactiveEncounter for immunizationICD-10: Z23 ICD-9: V03.907/InactiveEncounter for preprocedural cardiovascular examinationICD-10: Z01.810 ICD-9: V72.8106InactiveHeadacheICD-10: R51 ICD-9: 784.001InactiveOther director long term care (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ICD-10: Z79.899 ICD-9: V58.6907InactiveType 2 diabetes mellitus without complications ICD-10: E11.9 ICD-9: 250.0001/10/2018InactiveWheezingICD-10: R06.2 ICD-9: 786.0711/03/2018InactiveAbnormal urine findingICD-10: R82.90 ICD-9: 791.912ResolvedAbrasion of toeICD-10: S90.416A ICD-9: 917.005/ResolvedPink eyeICD-10: H10.029 ICD-9: 372.0303ResolvedRight wrist painICD-10: M25.531 [...] for malignant neoplasm of breastICD-10: Z12.31 ICD-9: V76.1207/ActiveFecal incontinenceICD-10: R15.9 ICD-9: 787.6003ActiveMixed incontinenceICD-10: N39.46 ICD-9: 788.3308ActiveAsthmaICD-10: J45.909 ICD-9: 493.9011ActivePatient Not SeenICD-10: UXZ.01 ICD-9: XZ0.107ActiveAbnormal electrocardiogram [ECG] [EKG]ICD-10: R94.31 ICD-9: 794.31005/30/2018ActiveEdema, unspecifiedICD-10: R60.9 ICD-9: 782.310ActiveLong term (current) use of non-steroidal anti- inflammatories (NSAID)ICD-10: Z79.1 ICD-9: V58.64006/13/2018Active Medications Medication Codes Instructions Start Date Stop Date Status Fill Instructions Ozempic 0.25 mg or 0.5 mg (2 mg/1.5 mL) subcutaneous pen injector RxNorm: 6629371 Take 0.5 Capsule(s) Injection once a week 10/07/19 22 2021 Inactive omeprazole 20 mg capsule,delayed release RxNorm: 832865 Take 1 Capsule(s) Oral every evening 09/22/202020 Inactive Ozempic 0.25 mg or 0.5 mg (2 mg/1.5 mL) subcutaneous pen injector RxNorm: 8507332 Take 0.25 Milligram(s) Subcutaneous once a week 09/11/202021 Inactive Easy Touch Alcohol Prep Pads RxNorm: 885482 USE DIRECTED EACH MORNING 09/03/202021 Inactive Probiotic 10 billion cell capsule RxNorm: 1977253 Take 1 Capsule(s) Oral every day 08/13/202021 Inactive levothyroxine 50 mcg tablet RxNorm: 893132 Take 1 Tablet(s) Oral every day 08/13/202020 Inactive Acid Shaper Setter (famotidine) 20 mg tablet RxNorm: 593146 Take 1 Tablet(s) Oral every morning 08/13/20 21 2020 Inactive Heartburn Relief (famotidine) 10 mg tablet RxNorm: 702889 Take 1 Tablet(s) Oral QAM 08/07/20 21 2020 Inactive levothyroxine 50 mcg tablet RxNorm: 246038 Take 1 Tablet(s) Oral QD 08/07/20 21 2020 Inactive metformin 1,000 mg tablet RxNorm: 744536 1 Tablet(s) Oral two times a day 07/16/20 21 2021 Inactive Singulair 10 mg tablet RxNorm: 133666 TAKE (1) TABLET BY MOUTH DAILY 07/16/20 21 2020 Inactive lisinopril 2.5 mg tablet RxNorm: 744071 Take 1 Tablet(s) Oral every day 07/11/20 21 2020 Inactive hydrochlorothiazide 25 mg tablet RxNorm: 309211 Take 1 Tablet(s) Oral every day 06/12/20 21 2020 Inactive ondansetron 4 mg disintegrating tablet RxNorm: 438017 1 Tablet(s) Oral two times a day 06/10/20 21 2020 Inactive Sudafed 12 Hour 120 mg tablet,extended release RxNorm: 5918410 TAKE 1 TABLET BY MOUTH EVERY 12 HOURS NEEDED 06/01/20 21 2021 Inactive Heartburn Relief (famotidine) 10 mg tablet RxNorm: 000918 Take 1 Tablet(s) Oral every morning 05/07/20 21 2020 Inactive omeprazole 20 mg capsule,delayed release RxNorm: 065528 1 Capsule(s) Oral every evening 04/03/20 21 2020 Inactive sertraline 100 mg tablet RxNorm: 736374 2 Tablet(s) Oral every day 03/13/20 21 2020 Inactive levothyroxine 50 mcg tablet RxNorm: 333098 TAKE (1) TABLET BY MOUTH DAILY 02/04/20 21 2020 Inactive metformin 500 mg tablet RxNorm: 472124 1 Tablet(s) Oral two times a day take with 500mg to equal 1000mg 01/14/20 21 2020 Inactive gabapentin 300 mg capsule RxNorm: 624900 TAKE 1 CAPSULE BY MOUTH THREE TIMES A DAY 01/14/20 21 2020 Inactive lisinopril 2.5 mg tablet RxNorm: 068313 TAKE 1 TABLET BY MOUTH DAILY 01/06/20 21 2020 Inactive gabapentin 300 mg capsule RxNorm: 377608 TAKE 1 CAPSULE BY MOUTH THREE TIMES A DAY 01/06/20 21 2020 Inactive Singulair 10 mg tablet RxNorm: 649708 TAKE (1) TABLET BY MOUTH DAILY 01/06/20 21 2020 Inactive metformin 1,000 mg tablet RxNorm: 572996 1 Tablet(s) Oral two times a day 01/06/20 21 2020 Inactive atorvastatin 40 mg tablet RxNorm: 509835 1 Tablet(s) Oral every day 12/06/19 21 2020 Inactive omeprazole 20 mg capsule,delayed release RxNorm: 045386 1 Capsule(s) Oral every evening 11/24/19 21 2020 Inactive famotidine 10 mg tablet RxNorm: 283129 1 Tablet(s) Oral every morning 11/24/19 21 2020 Inactive Alcohol Prep Pads RxNorm: 820140 USE EACH MORNING 10/14/19 21 2020 Inactive omeprazole 20 mg capsule,delayed release RxNorm: 297713 1 Capsule(s) Oral two times a day 10/13/19 21 2021 Inactive omeprazole 20 mg capsule,delayed release RxNorm: 306369 TAKE 1 CAPSULE BY MOUTH EVERY DAY 10/08/19 21 2021 Inactive Macrobid 100 mg capsule RxNorm: 338939 1 Capsule(s) Oral every 12 hours with food 10/01/202020 Inactive omeprazole 20 mg capsule,delayed release RxNorm: 132434 1 Capsule(s) Oral two times a day 09/24/20 20 2021 Inactive metformin 1,000 mg tablet RxNorm: 599418 1 Tablet(s) Oral two times a day 08/19/20 20 2020 Inactive start on September 11, 2020 metformin 500 mg tablet RxNorm: 146296 1 Tablet(s) Oral two times a day take with 500mg to equal 1000mg 08/19/20 20 2019 Inactive gabapentin 300 mg capsule RxNorm: 647946 TAKE 1 CAPSULE BY MOUTH THREE TIMES DAILY 07/11/2001/04/ 2021 Inactive cetirizine 10 mg tablet RxNorm: 4545113 TAKE (1) TABLET BY MOUTH DAILY 07/11/20 20 2020 Inactive metformin 500 mg tablet RxNorm: 440937 1 Tablet(s) Oral two times a day 07/08/20 20 2019 Inactive loperamide 2 mg tablet RxNorm: 807026 1 Tablet(s) Oral as needed take one tablet after each loose stool, maximum of 8 tablets in 24 hours 06/24/20 20 2021 Inactive Sudafed 12 Hour 120 mg tablet,extended release RxNorm: 9980558 TAKE 1 TABLET BY MOUTH EVERY 12 HOURS NEEDED 06/11/20 20 2019 Inactive hydrochlorothiazide 25 mg tablet RxNorm: 010778 TAKE (1) TABLET BY MOUTH EVERY DAY 06/11/20 20 2019 Inactive omeprazole 20 mg capsule,delayed release RxNorm: 494531 TAKE 1 CAPSULE BY MOUTH EVERY DAY 05/14/20 20 2020 Inactive metformin 500 mg tablet RxNorm: 832824 1 Tablet(s) Oral every day 05/12/20 20 2019 Inactive True Metrix Glucose Test Strip RxNorm: 1 Test Strips Miscellaneous two times a day as needed 04/17/20 No Stop Date Active metformin 500 mg tablet RxNorm: 643975 1 Tablet(s) Oral every day 04/17/20 20 2019 Inactive diclofenac sodium 75 mg tablet,delayed release RxNorm: 140950 1 Tablet(s) PO BID 04/14/20 20 2021 Inactive This refill negates all other refills of this medication Sudafed 12 Hour 120 mg tablet,extended release RxNorm: 3075372 TAKE 1 TABLET BY MOUTH EVERY 12 HOURS NEEDED 03/14/20 20 2019 Inactive True Metrix Glucose Test Strip RxNorm: 1 Test Strips Miscellaneous every morning 03/13/20 20 2019 Inactive 100/container True Metrix Glucose Test Strip RxNorm: 1 Test Strips Miscellaneous QA 02/22/20 20 2019 Inactive 100/container loperamide 2 mg tablet RxNorm: 425008 1 Tablet(s) Oral as needed take one tablet after each loose stool, maximum of 8 tablets in 24 hours 02/22/20 20 2019 Inactive cetirizine 10 mg tablet RxNorm: 7356120 1 Tablet(s) PO daily 01/17/20 20 2019 Inactive loperamide 2 mg tablet RxNorm: 763724 1 Tablet(s) Oral as needed take one tablet after each loose stool, maximum of 8 tablets in 24 hours 01/17/20 20 2019 Inactive quetiapine 100 mg tablet RxNorm: 889692 1 Tablet(s) Oral every night at bedtime 01/17/20 20 2019 Inactive levothyroxine 50 mcg tablet RxNorm: 436936 1 Tablet(s) PO daily 01/17/20 20 2020 Inactive gabapentin 300 mg capsule RxNorm: 604461 1 Capsule(s) PO TID 01/17/20 20 2019 Inactive levothyroxine 50 mcg tablet RxNorm: 588488 1 Tablet(s) PO daily 01/15/20 20 2019 Inactive lisinopril 2.5 mg tablet RxNorm: 370615 1 Tablet(s) PO daily 01/15/20 20 2020 Inactive gabapentin 300 mg capsule RxNorm: 704800 1 Capsule(s) PO TID 01/15/20 20 2019 Inactive cetirizine 10 mg tablet RxNorm: 4862236 1 Tablet(s) PO daily 01/15/20 20 2019 Inactive Singulair 10 mg tablet RxNorm: 179924 1 Tablet(s) PO daily 01/15/20 20 2020 Inactive gentamicin 0.3 % eye drops RxNorm: 817525 1 Drop(s) ophthalmic (eye) four times a day 12/29/19 20 2019 Inactive gentamicin 0.3 % eye drops RxNorm: 663896 1 Drop(s) ophthalmic (eye) four times a day 12/29/19 20 2019 Inactive gentamicin 0.3 % eye drops RxNorm: 249448 1 Drop(s) ophthalmic (eye) four times a day 12/29/19 20 2019 Inactive hydrochlorothiazide 25 mg tablet RxNorm: 578957 1 Tablet(s) Oral every day 12/21/19 20 2019 Inactive Sudafed 12 Hour 120 mg tablet,extended release RxNorm: 2885286 TAKE (1) TABLET BY MOUTH EVERY 12 HOURS NEEDED 12/21/19 20 2019 Inactive loperamide 2 mg tablet RxNorm: 914371 1 Tablet(s) Oral as needed take one tablet after each loose stool, maximum of 8 tablets in 24 hours 12/11/19 20 2019 Inactive loperamide 2 mg tablet RxNorm: 424902 1 Tablet(s) Oral as needed take one tablet after each loose stool, maximum of 8 tablets in 24 hours 12/11/19 20 2019 Inactive atorvastatin 40 mg tablet RxNorm: 767973 1 Tablet(s) Oral every day 11/29/19 20 2020 Inactive quetiapine 100 mg tablet RxNorm: 978115 1 Tablet(s) Oral every night at bedtime 11/28/19 20 2019 Inactive sertraline 100 mg tablet RxNorm: 796397 1 Tablet(s) Oral 11/28/19 20 2019 Inactive omeprazole 20 mg capsule,delayed release RxNorm: 671114 1 Capsule(s) Oral every day 11/20/19 20 2019 Inactive amoxicillin 250 mg capsule RxNorm: 117322 1 Capsule(s) Oral three times a day 11/07/19 20 2019 Inactive multivitamin with iron-mineral tablet RxNorm: 1 Tablet(s) Oral every day 10/29/19 20 2021 Inactive cetirizine 10 mg tablet RxNorm: 2296880 1 Tablet(s) PO daily 10/20/19 20 2019 Inactive This refill negates all other refills of this medication. Please do not auto refill Singulair 10 mg tablet RxNorm: 791692 1 Tablet(s) PO daily 10/20/19 20 2019 Inactive This refill negates all other refills of this medication gabapentin 300 mg capsule RxNorm: 340242 1 Capsule(s) PO TID 10/20/19 20 2019 Inactive lisinopril 2.5 mg tablet RxNorm: 004428 1 Tablet(s) PO daily 10/20/19 20 2019 Inactive levothyroxine 50 mcg tablet RxNorm: 656333 1 Tablet(s) PO daily 10/20/19 20 2019 Inactive This refill negates all other refills of this medication fenugreek seed extract 500 mg capsule RxNorm: 1 Capsule(s) Oral three times a day 10/17/19 20 2021 Inactive hydrochlorothiazide 25 mg tablet RxNorm: 939661 1 Tablet(s) Oral every day 10/17/19 20 2019 Inactive Alcohol Prep Pads RxNorm: 843284 1 Patch TOP QAM 10/16/192020 Inactive loperamide 2 mg tablet RxNorm: 548887 1 Tablet(s) Oral as needed take one [...] 09/19/202019 Inactive hydrochlorothiazide 25 mg tablet RxNorm: 779933 1 Tablet(s) Oral every day 09/19/202019 Inactive Sudafed 12 Hour 120 mg tablet,extended release RxNorm: 0591864 1 Tablet(s) Oral every 12 hours as needed 09/11/202018 Inactive omeprazole 20 mg capsule,delayed release RxNorm: 711433 1 Capsule(s) Oral every day 09/07/20 19 2019 Inactive Sudafed 12 Hour 120 mg tablet,extended release RxNorm: 1138753 1 Tablet(s) Oral every 12 hours as needed 09/04/20 19 2018 Inactive pantoprazole 40 mg tablet,delayed release RxNorm: 300455 1 Tablet(s) Oral every day 08/24/20 19 2018 Inactive discontinue any other H2Blkr. and PPI albuterol sulfate 2.5 mg/3 mL (0.083 %) solution for nebulization RxNorm: 266360 1 Vial Inhalation every four hours as needed as needed for dyspnea 08/17/202019 Inactive 60/box. This refill negates all other refills of this medication. Please do not fill early. Please do not auto refill. Symbicort 160 mcg-4.5 mcg/actuation HFA aerosol inhaler RxNorm: 0259730 2 Puff(s) INH BID 08/17/20 No Stop Date Active Alcohol Prep Pads RxNorm: 345022 1 Patch TOP QAM 08/17/202019 Inactive Ventolin HFA 90 mcg/actuation aerosol inhaler RxNorm: 718594 2 Puff(s) INH QID 08/09/202019 Inactive Please do not fill early. Please do not auto refill. This refill negates all other refills of this medication True Metrix Glucose Test Strip RxNorm: 1 Test Strips Miscellaneous QAM 08/09/20 19 2019 Inactive 100/container atorvastatin 40 mg tablet RxNorm: 122282 1 Tablet(s) Oral every day 07/04/20 19 2019 Inactive levmetamfetamine 50 mg nasal inhaler RxNorm: 1 Unit(s) NASAL Q3-4H Do not use more than every 3 hours or 8 times/24hours 06/26/20 19 2021 Inactive Please do not auto refill. This refill negates all other refills of this medication buspirone 7.5 mg tablet RxNorm: 302462 1 Tablet(s) PO BID 06/26/20 19 2020 Inactive This refill negates all other refills of this medication hydrochlorothiazide 12.5 mg tablet RxNorm: 845159 1 Tablet(s) PO QAM 06/26/20 19 2019 Inactive Ventolin HFA 90 mcg/actuation aerosol inhaler RxNorm: 023512 2 Puff(s) INH QID 06/26/20 19 2018 Inactive Please do not fill early. Please do not auto refill. This refill negates all other refills of this medication Singulair 10 mg tablet RxNorm: 920807 1 Tablet(s) PO daily 06/26/20 19 2019 Inactive This refill negates all other refills of this medication cetirizine 10 mg tablet RxNorm: 5991182 1 Tablet(s) PO daily 06/26/20 19 2019 Inactive This refill negates all other refills of this medication. Please do not auto refill levothyroxine 50 mcg tablet RxNorm: 884555 1 Tablet(s) PO daily 06/26/20 19 2019 Inactive This refill negates all other refills of this medication diclofenac sodium 75 mg tablet,delayed release RxNorm: 251115 1 Tablet(s) PO BID 06/26/20 19 2019 Inactive This refill negates all other refills of this medication ranitidine 150 mg tablet RxNorm: 181848 1 Tablet(s) PO BID 06/26/20 19 2018 Inactive This refill negates all other refills of this medication Calcium 600-D3 Plus (mag-zinc) 600 mg calcium-800 unit-50 mg tablet RxNorm: 1 Tablet(s) PO daily take an additonal tablet for itching. 06/26/20 19 2018 Inactive This refill negates all other refills of this medication albuterol sulfate 2.5 mg/3 mL (0.083 %) solution for nebulization RxNorm: 707774 1 Vial INH QID 06/26/20 19 2018 Inactive 60/box. This refill negates all other refills of this medication. Please do not fill early. Please do not auto refill. lisinopril 2.5 mg tablet RxNorm: 815318 1 Tablet(s) PO daily 06/21/20 19 2019 Inactive gabapentin 300 mg capsule RxNorm: 172194 1 Capsule(s) PO TID 06/21/20 19 2019 Inactive atorvastatin 20 mg tablet RxNorm: 036514 1 Tablet(s) PO QHS 06/07/20 19 2018 Inactive This refill negates all other refills of this medication TRUEplus Lancets 30 gauge RxNorm: 1 Lancets Miscellaneous QAM 05/29/20 19 2018 Inactive 100/box gabapentin 300 mg capsule RxNorm: 127386 1 Capsule(s) PO TID 05/03/20 19 2018 Inactive Flintstones Complete (iron) 18 mg iron chewable tablet RxNorm: 1 Tablet(s) PO daily 04/04/202021 Inactive This refill negates all other refills of this medication gabapentin 300 mg capsule RxNorm: 871209 1 Capsule(s) PO TID as needed 02/01/202018 Inactive True Metrix Glucose Test Strip RxNorm: 1 Test Strips Miscellaneous QA 02/01/20 19 2018 Inactive 100/container Alcohol Prep Pads RxNorm: 208926 1 Patch TOP QA 02/01/202018 Inactive TRUEplus Lancets 30 gauge RxNorm: 1 Lancets Miscellaneous QAM 02/01/20 19 2018 Inactive 100/box lisinopril 2.5 mg tablet RxNorm: 717798 1 Tablet(s) PO daily 12/28/192018 Inactive ranitidine 150 mg tablet RxNorm: 953135 1 Tablet(s) PO BID 10/21/19 19 2018 Inactive This refill negates all other refills of this medication albuterol sulfate 2.5 mg/3 mL (0.083 %) solution for nebulization RxNorm: 180489 1 Vial INH QID 10/21/192018 Inactive 60/box. [...] this medication gabapentin 300 mg capsule RxNorm: 649776 1 Capsule(s) PO TID as needed 10/21/19 19 2018 Inactive atorvastatin 20 mg tablet RxNorm: 079801 1 Tablet(s) PO QHS 10/21/19 19 2018 Inactive This refill negates all other refills of this medication trazodone 50 mg tablet RxNorm: 454373 1 Tablet(s) PO QHS 10/21/19 19 2018 Inactive This refill negates all other refills of this medication Ventolin HFA 90 mcg/actuation aerosol inhaler RxNorm: 151063 2 Puff(s) INH QID 10/21/19 19 2018 Inactive Please do not fill early. Please do not auto refill. This refill negates all other refills of this medication Calcium 600-D3 Plus 600 mg calcium-800 unit-50 mg tablet RxNorm: 1 Tablet(s) PO daily take an additonal tablet for itching. 10/21/192018 Inactive This refill negates all other refills of this medication Singulair 10 mg tablet RxNorm: 338900 1 Tablet(s) PO daily 10/21/192018 Inactive This refill negates all other refills of this medication buspirone 7.5 mg tablet RxNorm: 951186 1 Tablet(s) PO BID 10/21/192018 Inactive This refill negates all other refills of this medication diclofenac sodium 75 mg tablet,delayed release RxNorm: 364478 1 Tablet(s) PO BID 10/21/192018 Inactive This refill negates all other refills of this medication hydrochlorothiazide 12.5 mg tablet RxNorm: 496482 1 Tablet(s) PO QAM 10/21/19 19 2018 Inactive metoprolol succinate ER 50 mg tablet,extended release 24 hr RxNorm: 560711 1 Tablet(s) PO daily 10/21/192018 Inactive This refill negates all other refills of this medication levothyroxine 50 mcg tablet RxNorm: 970744 1 Tablet(s) PO daily 10/21/192018 Inactive This refill negates all other refills of this medication cetirizine 10 mg tablet RxNorm: 6821053 1 Tablet(s) PO daily 10/21/19 19 2018 Inactive This refill negates all other refills of this medication. Please do not auto refill Flintstones Complete (iron) 18 mg iron chewable tablet RxNorm: 1 Tablet(s) PO daily 10/21/19 19 2018 Inactive This refill negates all other refills of this medication buspirone 7.5 mg tablet RxNorm: 359418 1 Tablet(s) PO BID 10/12/19 19 2018 Inactive cetirizine 10 mg tablet RxNorm: 9484584 1 Tablet(s) PO daily 09/28/20 18 2018 Inactive Guaiasorb DM 10 mg-100 mg/5 mL oral liquid RxNorm: 495077 10 Milliliter(s) PO As needed every 4 hr 09/24/20 18 2018 Inactive Vicks Vaporub 4.7 %-1.2 %-2.6 % topical ointment RxNorm: 5431264 1 Application TOP TID 09/24/20 18 2018 Inactive levmetamfetamine 50 mg nasal inhaler RxNorm: 1 Unit(s) NASAL Q3-4H 09/24/20 18 2017 Inactive sertraline 50 mg tablet RxNorm: 914257 1 Tablet(s) PO daily 09/09/20 18 2018 Inactive Please note dose trazodone 50 mg tablet RxNorm: 487838 1 Tablet(s) PO QHS 09/06/20 18 2018 Inactive sertraline 50 mg tablet RxNorm: 773788 1 Tablet(s) PO daily 09/06/20 18 2017 Inactive amoxicillin 500 mg tablet RxNorm: 505047 1 Tablet(s) PO Q12H 08/31/20 18 2017 Inactive albuterol sulfate 2.5 mg/3 mL (0.083 %) solution for nebulization RxNorm: 095767 1 Vial INH QID 08/10/20 18 2018 Inactive 60/box. Please do not fill early. Please do not auto refill. Prozac 10 mg capsule RxNorm: 355715 1 Capsule(s) PO daily 08/09/20 18 2017 Inactive buspirone 7.5 mg tablet RxNorm: 313598 1 Tablet(s) PO BID 08/09/20 18 2018 Inactive gabapentin 300 mg capsule RxNorm: 187790 1 Capsule(s) PO TID as needed 08/01/20 18 2018 Inactive hydrochlorothiazide 12.5 mg tablet RxNorm: 923907 1 Tablet(s) PO QAM 08/01/20 18 2018 Inactive ranitidine 150 mg tablet RxNorm: 613461 1 Tablet(s) PO BID 08/01/20 18 2018 Inactive Macrobid 100 mg capsule RxNorm: 076257 1 Capsule(s) PO Q12H 06/21/20 18 2017 Inactive Singulair 10 mg tablet RxNorm: 128914 1 Tablet(s) PO daily 06/14/20 18 2018 Inactive Ventolin HFA 90 mcg/actuation aerosol inhaler RxNorm: 7112661 2 Puff(s) INH QID 06/14/20 18 2018 Inactive Singulair 10 mg tablet RxNorm: 183026 1 Tablet(s) PO daily 06/14/20 18 2017 Inactive buspirone 7.5 mg tablet RxNorm: 903724 1 Tablet(s) PO BID 06/14/20 18 2017 Inactive Prozac 10 mg capsule RxNorm: 324276 1 Capsule(s) PO daily 06/14/20 18 2017 Inactive Neilmed Pediatric Sinus Rinse Refill packet RxNorm: 1 Unit Dose NASAL PRN 05/31/20 18 2021 Inactive diclofenac sodium 75 mg tablet,delayed release RxNorm: 619952 1 Tablet(s) PO BID 05/31/20 18 2017 Inactive lisinopril 2.5 mg tablet RxNorm: 789486 1 Tablet(s) PO daily 05/31/20 18 2017 Inactive metoprolol succinate ER 50 mg tablet,extended release 24 hr RxNorm: 629480 1 Tablet(s) PO daily 05/31/20 18 2017 Inactive levothyroxine 50 mcg tablet RxNorm: 982887 1 Tablet(s) PO daily 05/31/20 18 2017 Inactive TRUEplus Lancets 30 gauge RxNorm: 1 Lancets Miscellaneous QAM 05/31/20 18 2017 Inactive 100/box Ventolin HFA 90 mcg/actuation aerosol inhaler RxNorm: 085424 2 Puff(s) INH QID 05/31/20 18 2017 Inactive Aleve 220 mg capsule RxNorm: 0610792 1 Capsule(s) PO BID 05/31/20 18 2018 Inactive ranitidine 150 mg tablet RxNorm: 023468 1 Tablet(s) PO BID 05/31/20 18 2017 Inactive gabapentin 300 mg capsule RxNorm: 013987 1 Capsule(s) PO TID as needed 05/31/20 18 2017 Inactive atorvastatin 20 mg tablet RxNorm: 117287 1 Tablet(s) PO QHS 05/31/20 18 2017 Inactive True Metrix Glucose Test Strip RxNorm: 1 Test Strips Miscellaneous QA 05/31/20 18 2017 Inactive 50/container Calcium 600-D3 Plus 600 mg calcium-800 unit-50 mg tablet RxNorm: 1 Tablet(s) PO daily take an additonal tablet for itching. 05/31/20 18 2017 Inactive hydrochlorothiazide 12.5 mg tablet RxNorm: 096977 1 Tablet(s) PO QAM 05/31/20 18 2017 Inactive Flintstones Complete (iron) 18 mg iron chewable tablet RxNorm: 1 Tablet(s) PO daily 05/31/20 18 2017 Inactive d-mannose oral powder RxNorm: PO 18 2021 Inactive True Metrix Glucose Meter RxNorm: miscellaneous 08/17/20 19 2018 Inactive sertraline 50 mg tablet RxNorm: 705673 1 Tablet(s) PO daily 11/28/19 20 2019 Inactive loperamide 2 mg tablet RxNorm: 884398 oral 09/29/20 19 2018 Inactive Symbicort 160 mcg-4.5 mcg/actuation HFA aerosol inhaler RxNorm: 6494928 2 Puff(s) INH BID 08/17/20 19 2018 Inactive Medication Administered No Medication Administered data Procedures Procedure Codes Date Patient Health Questionnaire CPT-4: DPHQ 01/2022 Patient Health Questionnaire Little interest or pleasure in doing things?/1 = Several days, Feeling down, depressed or hopeless?/0 = Not at all, Trouble falling or staying asleep, or sleeping too much?/1 = Several days, Feeling tired or having little energy?/1 = Several days, Poor appetite or overeating?/0 = Not at all, Feeling bad about yourself or that you're a failure or that you have let yourself or family down?/0 = Not at all, Trouble concentrating on things, such as reading a newspaper or watching television?/0 = Notat all, Moving or speaking so slowly that other people noticed? Or the opposite?/0 = Not at all, Thoughts that you would be better off , or of hurting yourself in some way?/0 = Not at all, Score:/0-4 = Negative for depression- NO PLAN NEEDEDCPT-4: FQFUVxllyie05/05/2022 Maltreatment Assessment 1. Have you relied on people for any of the following: bathing/dressing, shopping, banking or meals?/No, 2. Anyone prevented you from getting essential Item i.e. food, clothes, medication, glasses etc./No, 3. Been upset because someone talked to you in a way that made you feel shamed/threatened?/No, 4. Anyone tried to force you to sign papers or to use your money against your will?/No, 5. Anyone made you afraid, touched you in ways that you did not want, or hurt you physically?/No, 6. Pt has poor eye contact, withdrawn, bad hygiene, cuts, bruises, or medication non-compliance?/No, Score:/NO All questions 2-6. No plan required, re-evaluate annually or prnCPT-4: UAACvcgppe69/05/2022Functional Assessment ADLs - Patient needs direct assistance, cuing, or supervision, to perform the following safely:/*Noassistance, cuing, or supervision needed, IADLs - Patient needs direct assistance, cuing, or supervision, to perform the following safely:/*No assistance, cuing, or supervision neededCPT-4: PHEIsrlswz42/05/2022 Frailty ScreeningCPT-4: SFD05/20/2021HypertensionCPT-4: HTN04/01/2021Tobacco Assessment/ScreeningCPT-4: TCA03/13/2021atient Health QuestionnaireCPT-4: DPHQ 03/13/2021Mini Mental State ExamCPT-4: DMMA01/29/2021nnual Wellness Visit (Subsequent Visit)CPT-4: V85785801/13/2021dvanced Care PlanningCPT-4: VACP 01/13/2021Fall Risk AssessmentSNOMED CT: 280715236 CPT-4: DFRA01/13/2021emmes Fany AssessmentCPT-4: DSWA12/17/2020Urinalysis, dip stickCPT-4: 977197809/24/2020Patient Health QuestionnaireCPT-4: DPHQ 08/19/2020ElectrocardiogramCPT-4: 4390965Tobacco Assessment/Screening CPT-4: TCA01/01/2020Fall Risk AssessmentSNOMED CT: 474473997 CPT-4: DFRA01/01/2020Functional AssessmentCPT-4: DFA01/01/2020Semmes Fany AssessmentCPT-4: DSWA11/28/2019Patient Health QuestionnaireCPT-4: DPHQ11/28/2019 [place] Fany AssessmentCPT-4: DSWA10/17/2019HypertensionCPT-4: HTN10/17/[address]: 330995808 CPT-4: DFRA09/19/2019Functional AssessmentCPT-4: DFA111/20/2018Urinalysis, dip stickCPT-4: 4855146Tobacco Assessment/ScreeningCPT-4: TCA05/24/2019 Patient Health QuestionnaireCPT-4: DPHQ05/24/2019AHA/REBECCA Classification AssessmentCPT-4: DAHA04/25/2019Controlled Substance ReportCPT-4: CTRSU04/25/2019 Urinalysis, dip stickCPT-4: 080433603/28/2019Urinalysis, dip stickCPT-4: 92922 03/28/20196903O8N-FmzhtpjcdhxmxfpHVW-7: 88979QxcyvmtJ2V-ArnqlsuybubcxujMLI-6: 91064 CdupckaG2R-JcpuspqalwizwxrRPB-7: 30808OhynrjoG0W-OtiogaaeihzwjtuGVC-2: 07949 HwfcuxcJ5N-CruckadbbhlecgbRBA-8: 95844GjkuclwO6W-MegcultjmhdpchwZCP-6: 84428 EbupiilQ4V-JhjzhknkcczfjzfCOI-5: 06802OlvnlqbDlpbuihflt ReferralSNOMED CT: 768280045 CPT-4: N14Wphhndi Vital Signs Date Vital 10/07/2021 Blood Pressure 1: 122/78 Code: 8480-6 BMI: 53.7 Code: 74888-1 Heart Rate 1: 80 bpm Height: 4'11 Code: 8302-2 Respiratory Rate: 18 bpm SpO2: 98% Temperature: 36.6 (C) / 97.8 (F) Weight: 266 lbs Code: 01422-1 Reason For Visit Reason For Visit Effective Dates Notes hyperglycemia condition 10/07/2021 weight gain/obesity 10/07/2021 Encounters Encounter Performer Location Location Address Codes Magdi e ([id number]) HOME VISIT EST CAESAR HUFF Diagnosis: Type 2 diabetes mellitus with peripheral neuropathy[ICD10: E11.42] Diagnosis: Adult BMI 50.0-59.9 kg/sq m[ICD10: Z68.43] Diagnosis: Diarrhea[ICD10: R19.7] Diagnosis: Syncope and collapse[ICD10: R55] Diagnosis: Family history of seizures[ICD10: Z84.89]Chivo Johnson [address] [place] [address] 96741END-5: 73229 10/07/2021 Plan of Care Planned Activity Notes Codes Status Date Visit Plan: R19.7-787.91 Diarrhe a has resolved following change from metformin to Ozempic pt had been having intermittent symptoms over the past few months discussed diarrhea triggers to avoid E11.42-250.60 Type 2 diabetes mellitus with peripheral neuropathy, Z68.43-V85.43 Adult BMI 50.0-59.9 kg/sq m Improving review of glucose log 110-165 continue diabetic diet, discussed daily weights- patient has been taking a OTC diet pill, which contains Garcinia Cambogia, a substance banned by the FDA for hepatotoxicity issues- advised patient to stop taking Metformin 1000mg BID was discontinued due to diarrhea, replaced with Ozempic- increase dose to 0.5mg per week routine follow up with Dr. Gonzales, podiatry ophthalmology visit up to date 07/2021 cautioned to return to previous Ozempic dosing if mild hypoglycemia were to develop R55-780.2 Syncope and collapse Z84.89-V19.8 Family history of seizures some seizure activity reported discussed potential seizure contributing factors and their avoidance continue with [facility] advised to notify office for persistent or worsening symptoms 10/07/2021atient Education: Patient Medication NtzfcaxOoljxvupv01/05/2022 Patient Education: Weight XrcsBinyczptu75/05/2022ppointment: Chivo Bishop WPtel: [address] [place] [address] USETV111/11/2020ppointment: Chivo Bishop WPtel: [address] [place] [address] USETV110/13/2020ppointment: Chivo Bishop WPtel: [address] [place] [address] USETV1ppointment: Chivo Bishop WPtel: [address] [place] [address] XMLQGD3706/10/2021ppointment: Anna Culver WPtel: [address] [place] [address] USETV06/02/2021ppointment: Chivo Bishop WPtel: [address] [place] [address] USETV08/18/2021Appointment: Anna Culver WPtel: [phone] [place] [address] USETV04/28/2021ppointment: Chivo Bishop WPtel: [phone] [place] [address] USETV04/15/2021ppointment: Anna Culver WPtel: [phone] [place] [address] [id number]: Anna Culver WPtel: [phone] [place] [address] USET03/24/2021ppointment: Anna Culver WPtel: [phone] [place] [address] USET03/13/2021ppointment: Anna Culver WPtel: [address] [place] [address] [id number]: Chivo Bishop WPtel: [phone] [place] [address] [id number]: Anna Culver WPtel: [address] [place] [address] USET01/13/2021ppointment: Anna Culver WPtel: [phone] [place] [address] [id number]: Chivo Bishop WPtel: [phone] [place] [address] USETV11/28/2020ppointment: Anna Culver WPtel: [phone] [place] [address] USETV11/24/2020ppointment: Anna Culver WPtel: [phone] [place] [address] [id number]: Anna Culver WPtel: [phone] [place] [address] QLG4004511/25/2019Appointment: Anna Culver WPtel: [phone] [place] [address] USETV110/26/2019Appointment: Anna Culver WPtel: [phone] [place] [address] USETV110/19/2019Appointment: Anna Culver WPtel: [phone] [place] [address] USETV1Appointment: Anna Culver WPtel: [address] [place] [address] USETV1Appointment: Gianna Birmingham MCtel: [address] [facility] [address] [id number] UORRBC6707/02/2020Appointment: Anna Culver WPtel: [address] [place] [address] [id number]: Anna Culver WPtel: [phone] [place] [address] [id number]: Anna Culver WPtel: [address] [place] [address] [id number]/Appointment: Anna Culver WPtel: [phone] [place] [address] [id number]: Anna Culver WPtel: [phone] [place] [address] [id number]/Appointment: Anna Culver WPtel: [phone] [place] [address] [id number]: Anna Culver WPtel: [address] [place] [address] [id number]: Anna Culver WPtel: [phone] [place] [address] [id number]: Anna Culvre WPtel: [address] [place] [address] [id number]: Anna Culver WPtel: [address] [place] [address] [id number]: Sudha Hernadez WPtel: [address] [facility] [address] [id number]: Sudha Hernadez WPtel: [address] [facility] [address] [id number]: Charlene Oropeza WPtel: [address] [facility] [address] [id number]: Danny ZcipqwB59516/26/2019Appointment: Charlene Oropeza WPtel: [address] [facility] [address] [id number]: Hema Palafoxothy WPtel: [address] [facility] [address] [id number]: Javy Rasta WPtel: [address] [facility] [address] [id number]: Javy Rasta WPtel: [address] [facility] [address] [id number]: Rasta Palafox WPtel: [address] [facility] [address] [id number]: Pending Gynecology Referral InformationReferral ProcessedReferral: Pending Pulmonology Referral InformationReferralProcessed Referral: Pending Psychiatry Referral InformationReferralInitiatedReferral: Pending Respiratory Services Referral InformationReferralInitiatedReferral: Pending Ophthalmology Referral InformationReferralInitiatedReferral: [facility] WPtel: [address] [place] [address] [address] [facility] USWriter placed a call out to the patient to notify her that it has been recommended that she be seenby 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 Patient agreed to be seen, does not have a provider of choice and no transportationissues. Head Wrestling Coach faxed referral and clinical notes to [facility] in [place], [place] near the patient's home. Patient [...] seen and prefers a provider in the [place] or [facility]. Head Wrestling Coach placed a call out to everyone listed in the area and the only location that was able to accept the patient's insurance was [place] [address] [place] [address] and spoke with Maylin. Maylin asked that the patient's referral, face sheet and visit notes be faxed to . Head Wrestling Coach faxed over requested documents. Patient appointment confirmation letter generated and mailed to her home address. Patient to call to schedule an appointment.ProcessedReferral: [facility] WPtel: [address] [place], [place] [id number] USPatient notified that it has been advised that she be seen by Neurology. Patient agreed to be seen and prefers to be seen by a provider in the [place], [place] area. Patient denies any concerns with transportation, and prefers to schedule her own appointment. Head Wrestling Coach placed a call out to [facility] and spoke with Neeraj P: who confirmed that their office is able to acceptnew patients and the patient's insurance. After confirming the providers fax number, insurance underwriter faxed over the patient's referral, and most recent clinical notes to F: . Patient to call to schedule her appointment. Appointment confirmation letter mailed to the patient's home address. CCDA completed.ProcessedReferral: Pending Nephrology Referral InformationReferralProcessedReferral: Pending Podiatry Referral Information ReferralInitiatedReferral: Pending Podiatry Referral InformationReferral ProcessedReferral: Pending Podiatry Referral InformationReferralInitiated Instructions Comment Date . R19.7-787.91 Diarrhea has resolved following change from metformin to Ozempic pt had been having intermittent symptoms over the past few months discussed diarrhea triggers to avoid E11.42-250.60 Type 2 diabetes mellitus with peripheral neuropathy, Z68.43-V85.43 Adult BMI 50.0-59.9 kg/sq m Improving review of glucose log 110-165 continue diabetic diet, discussed daily weights- patient has been taking a OTC diet pill, which contains Garcinia Cambogia,a substance banned by the FDA for hepatotoxicity issues- advised patient to stop taking Metformin 1000mg BID was discontinued due to diarrhea, replaced with Ozempic- increase dose to 0.5mg per week routine follow up with Dr. Gonzales, podiatry ophthalmology visit up to date 07/2021 cautioned to return to previous Ozempic dosing if mild hypoglycemia were to develop R55-780.2 Syncope and collapse; Z84.89-V19.8 Family history of seizures some seizure activity reported discussed potential seizure contributing factors and their avoidance continue with [facility] advised to notify office for persistent or worsening symptoms 10/07/2021 Medical Equipment No Medical Equipment data Advance Directives No Advance Directive data
--- OUTSIDE RECORDS SUMMARY | 2021-11-01 20:00 | XMS_ITS | CCD ---
Author Name Chivo Bishop [place] Address [address] [place] [address] Phone Organization [facility] Phone Care Team Providers Care Recreation Coordinator Name Role Phone Palomo KING, Anna Primary Care Provider Unav ailable Unavailable Chronic Care Management Unavaila ble Summary Purpose DataExchange Insurance Providers Payer name Policy type / Coverage type Covered republican ID Effective Begin Date Effective End Date SUKI BUTTS MARIA ESTHER [id number] Unknown Unknown Family history Mother Diagnosis Age [...] 05/31/2018 Education level Unknown Some High School 10th05/31/20186016CtgfdfqiljCwcnrkgZrqahkzcri08/29/2018Tobacco historySNOMED CT: [id number] never smoked or chewed cjuxjvn7505/31/2018Alcohol historySNOMED CT: 755893284Wokjk drinks ezfvmav7805/31/2018Has the patient ever used illegal drugs? UnknownHas never used illegal drugs05/31/2018DNR Order/ Advanced Directive UnknownFull Code05/31/2018 Allergies, Adverse Reactions, Alerts Substance Reaction Codes Entered Date Inactivated Date Status OxyContin itch, RxNorm: 889482 01/13/2021 No Inactive Da te Active *No known food allergies Gflbmdl3409/06/2018No Inactive DateActiveMethylprednisolonehivesRxNorm: 6902 09/06/2018No Inactive DateActive Problems Condition Codes Effective Dates Condition St atus Adult BMI 50.0-59.9 kg/sq m ICD-10: Z68. 43 ICD-9: V85.4308/ActiveFamily history of seizuresICD-10: Z84.89 ICD-9: V19.807/ctiveObstructive sleep apnea (adult) (pediatric)ICD-10: G47.33 ICD-9: 327.2309/ActiveSyncope and collapseICD-10: R55 ICD-9: 780.203ActiveType 2 diabetes mellitus with peripheral neuropathy ICD-10: E11.42 ICD-9: 250.6002ActiveDiarrheaICD-10: R19.7 ICD-9: 787.9111ctivePatient not seenICD-10: UXZ.01 ICD-9: UXZ.0112ctiveGERD (gastroesophageal reflux disease)ICD-10: K21.9 ICD-9: 530.8112ActiveHyperlipidemia, unspecifiedICD-10: E78.5 ICD-9: 272.408ActiveDyspnea, unspecifiedICD-10: R06.00 ICD-9: 786.0905ActiveAdjustment disorder with mixed anxiety and depressed moodICD-10: F43.23 ICD-9: 309.2812ActiveCOVID-19 virus RNA test result positive at limit of detectionICD-10: U07.1 ICD-9: 079.8909/ctiveUpper respiratory infectionICD-10: J06.9 ICD-9: 465.908/ctiveChronic kidney disease, stage 2 (mild)ICD-10: N18.2 ICD-9: 585.201/ctiveHypertensive heart disease with heart failureICD-10: I11.0 ICD-9: 402.9107/ActiveAnorexiaICD-10: R63.0 ICD-9: 783.003/ctivePost-traumatic stress disorder, unspecifiedICD-10: F43.10 ICD-9: 309.8112ActiveBlisterICD-10: T14.8XXA ICD-9: 919.2061ActiveEncounter for screening for tobacco useICD-10: Z01.89 ICD-9: V72.8503ActiveElevated liver enzymesICD-10: R74.8 ICD-9: 790.504/ctiveHistory of bladder surgeryICD-10: Z98.890 ICD-9: V45.8904ctiveUrinary retention with incomplete bladder emptying ICD-10: R33.9 ICD-9: 788.2104/ctive(Z00.01-V70.0) Encounter for general adult medical examination with abnormal findingsICD-10: Z00.01 ICD-9: V70.004/ctive(Z13.31-V79.0) Encounter for screening for depressionICD-10: Z13. 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) [...] (2 mg/1.5 mL) subcutaneous pen injector RxNorm: 0907159 Take 0.5 Capsule(s) Injection once a week 10/07/19 22 2021 Inactive omeprazole 20 mg capsule,delayed release RxNorm: 436542 Take 1 Capsule(s) Oral every evening 09/22/202020 Inactive Ozempic 0.25 mg or 0.5 mg (2 mg/1.5 mL) subcutaneous pen injector RxNorm: 3428397 Take 0.25 Milligram(s) Subcutaneous once a week 09/11/202021 Inactive Easy Touch Alcohol Prep Pads RxNorm: 665405 USE DIRECTED EACH MORNING 09/03/202021 Inactive Probiotic 10 billion cell capsule RxNorm: 2987337 Take 1 Capsule(s) Oral every day 08/13/202021 Inactive levothyroxine 50 mcg tablet RxNorm: 262455 Take 1 Tablet(s) Oral every day 08/13/202020 Inactive Acid Tour Sales Representative (famotidine) 20 mg tablet RxNorm: 835080 Take 1 Tablet(s) Oral every morning 08/13/20 21 2020 Inactive Heartburn Relief (famotidine) 10 mg tablet RxNorm: 243257 Take 1 Tablet(s) Oral QAM 08/07/20 21 2020 Inactive levothyroxine 50 mcg tablet RxNorm: 003154 Take 1 Tablet(s) Oral QD 08/07/20 21 2020 Inactive metformin 1,000 mg tablet RxNorm: 535828 1 Tablet(s) Oral two times a day 07/16/20 21 2021 Inactive Singulair 10 mg tablet RxNorm: 397839 TAKE (1) TABLET BY MOUTH DAILY 07/16/20 21 2020 Inactive lisinopril 2.5 mg tablet RxNorm: 647503 Take 1 Tablet(s) Oral every day 07/11/20 21 2020 Inactive hydrochlorothiazide 25 mg tablet RxNorm: 228429 Take 1 Tablet(s) Oral every day 06/12/20 21 2020 Inactive ondansetron 4 mg disintegrating tablet RxNorm: 073586 1 Tablet(s) Oral two times a day 06/10/20 21 2020 Inactive Sudafed 12 Hour 120 mg tablet,extended release RxNorm: 8060304 TAKE 1 TABLET BY MOUTH EVERY 12 HOURS NEEDED 06/01/20 21 2021 Inactive Heartburn Relief (famotidine) 10 mg tablet RxNorm: 384789 Take 1 Tablet(s) Oral every morning 05/07/20 21 2020 Inactive omeprazole 20 mg capsule,delayed release RxNorm: 748772 1 Capsule(s) Oral every evening 04/03/20 21 2020 Inactive sertraline 100 mg tablet RxNorm: 895212 2 Tablet(s) Oral every day 03/13/20 21 2020 Inactive levothyroxine 50 mcg tablet RxNorm: 645867 TAKE (1) TABLET BY MOUTH DAILY 02/04/20 21 2020 Inactive metformin 500 mg tablet RxNorm: 911461 1 Tablet(s) Oral two times a day take with 500mg to equal 1000mg 01/14/20 21 2020 Inactive gabapentin 300 mg capsule RxNorm: 252349 TAKE 1 CAPSULE BY MOUTH THREE TIMES A DAY 01/14/20 21 2020 Inactive lisinopril 2.5 mg tablet RxNorm: 553000 TAKE 1 TABLET BY MOUTH DAILY 01/06/20 21 2020 Inactive gabapentin 300 mg capsule RxNorm: 894475 TAKE 1 CAPSULE BY MOUTH THREE TIMES A DAY 01/06/20 21 2020 Inactive Singulair 10 mg tablet RxNorm: 680735 TAKE (1) TABLET BY MOUTH DAILY 01/06/20 21 2020 Inactive metformin 1,000 mg tablet RxNorm: 769019 1 Tablet(s) Oral two times a day 01/06/20 21 2020 Inactive atorvastatin 40 mg tablet RxNorm: 438488 1 Tablet(s) Oral every day 12/06/19 21 2020 Inactive omeprazole 20 mg capsule,delayed release RxNorm: 799664 1 Capsule(s) Oral every evening 11/24/19 21 2020 Inactive famotidine 10 mg tablet RxNorm: 928261 1 Tablet(s) Oral every morning 11/24/19 21 2020 Inactive Alcohol Prep Pads RxNorm: 330497 USE EACH MORNING 10/14/19 21 2020 Inactive omeprazole 20 mg capsule,delayed release RxNorm: 032958 1 Capsule(s) Oral two times a day 10/13/19 21 2021 Inactive omeprazole 20 mg capsule,delayed release RxNorm: 965793 TAKE 1 CAPSULE BY MOUTH EVERY DAY 10/08/19 21 2021 Inactive Macrobid 100 mg capsule RxNorm: 566241 1 Capsule(s) Oral every 12 hours with food 10/01/202020 Inactive omeprazole 20 mg capsule,delayed release RxNorm: 209810 1 Capsule(s) Oral two times a day 09/24/20 20 2021 Inactive metformin 1,000 mg tablet RxNorm: 600211 1 Tablet(s) Oral two times a day 08/19/20 20 2020 Inactive start on September 11, 2020 metformin 500 mg tablet RxNorm: 881127 1 Tablet(s) Oral two times a day take with 500mg to equal 1000mg 08/19/20 20 2019 Inactive gabapentin 300 mg capsule RxNorm: 250452 TAKE 1 CAPSULE BY MOUTH THREE TIMES DAILY 07/11/2001/04/ 2021 Inactive cetirizine 10 mg tablet RxNorm: 5333395 TAKE (1) TABLET BY MOUTH DAILY 07/11/20 20 2020 Inactive metformin 500 mg tablet RxNorm: 875289 1 Tablet(s) Oral two times a day 07/08/20 20 2019 Inactive loperamide 2 mg tablet RxNorm: 507278 1 Tablet(s) Oral as needed take one tablet after each loose stool, maximum of 8 tablets in 24 hours 06/24/20 20 2021 Inactive Sudafed 12 Hour 120 mg tablet,extended release RxNorm: 1649931 TAKE 1 TABLET BY MOUTH EVERY 12 HOURS NEEDED 06/11/20 20 2019 Inactive hydrochlorothiazide 25 mg tablet RxNorm: 183810 TAKE (1) TABLET BY MOUTH EVERY DAY 06/11/20 20 2019 Inactive omeprazole 20 mg capsule,delayed release RxNorm: 540619 TAKE 1 CAPSULE BY MOUTH EVERY DAY 05/14/20 20 2020 Inactive metformin 500 mg tablet RxNorm: 839755 1 Tablet(s) Oral every day 05/12/20 20 2019 Inactive True Metrix Glucose Test Strip RxNorm: 1 Test Strips Miscellaneous two times a day as needed 04/17/20 No Stop Date Active metformin 500 mg tablet RxNorm: 786248 1 Tablet(s) Oral every day 04/17/20 20 2019 Inactive diclofenac sodium 75 mg tablet,delayed release RxNorm: 857610 1 Tablet(s) PO BID 04/14/20 20 2021 Inactive This refill negates all other refills of this medication Sudafed 12 Hour 120 mg tablet,extended release RxNorm: 7780566 TAKE 1 TABLET BY MOUTH EVERY 12 HOURS NEEDED 03/14/20 20 2019 Inactive True Metrix Glucose Test Strip RxNorm: 1 Test Strips Miscellaneous every morning 03/13/20 20 2019 Inactive 100/container True Metrix Glucose Test Strip RxNorm: 1 Test Strips Miscellaneous QA 02/22/20 20 2019 Inactive 100/container loperamide 2 mg tablet RxNorm: 624815 1 Tablet(s) Oral as needed take one tablet after each loose stool, maximum of 8 tablets in 24 hours 02/22/20 20 2019 Inactive cetirizine 10 mg tablet RxNorm: 9004165 1 Tablet(s) PO daily 01/17/20 20 2019 Inactive loperamide 2 mg tablet RxNorm: 779465 1 Tablet(s) Oral as needed take one tablet after each loose stool, maximum of 8 tablets in 24 hours 01/17/20 20 2019 Inactive quetiapine 100 mg tablet RxNorm: 374926 1 Tablet(s) Oral every night at bedtime 01/17/20 20 2019 Inactive levothyroxine 50 mcg tablet RxNorm: 838117 1 Tablet(s) PO daily 01/17/20 20 2020 Inactive gabapentin 300 mg capsule RxNorm: 313226 1 Capsule(s) PO TID 01/17/20 20 2019 Inactive levothyroxine 50 mcg tablet RxNorm: 006233 1 Tablet(s) PO daily 01/15/20 20 2019 Inactive lisinopril 2.5 mg tablet RxNorm: 815314 1 Tablet(s) PO daily 01/15/20 20 2020 Inactive gabapentin 300 mg capsule RxNorm: 192479 1 Capsule(s) PO TID 01/15/20 20 2019 Inactive cetirizine 10 mg tablet RxNorm: 7105549 1 Tablet(s) PO daily 01/15/20 20 2019 Inactive Singulair 10 mg tablet RxNorm: 099600 1 Tablet(s) PO daily 01/15/20 20 2020 Inactive gentamicin 0.3 % eye drops RxNorm: 798668 1 Drop(s) ophthalmic (eye) four times a day 12/29/19 20 2019 Inactive gentamicin 0.3 % eye drops RxNorm: 987127 1 Drop(s) ophthalmic (eye) four times a day 12/29/19 20 2019 Inactive gentamicin 0.3 % eye drops RxNorm: 188218 1 Drop(s) ophthalmic (eye) four times a day 12/29/19 20 2019 Inactive hydrochlorothiazide 25 mg tablet RxNorm: 910777 1 Tablet(s) Oral every day 12/21/19 20 2019 Inactive Sudafed 12 Hour 120 mg tablet,extended release RxNorm: 6115234 TAKE (1) TABLET BY MOUTH EVERY 12 HOURS NEEDED 12/21/19 20 2019 Inactive loperamide 2 mg tablet RxNorm: 583157 1 Tablet(s) Oral as needed take one tablet after each loose stool, maximum of 8 tablets in 24 hours 12/11/19 20 2019 Inactive loperamide 2 mg tablet RxNorm: 557598 1 Tablet(s) Oral as needed take one tablet after each loose stool, maximum of 8 tablets in 24 hours 12/11/19 20 2019 Inactive atorvastatin 40 mg tablet RxNorm: 864343 1 Tablet(s) Oral every day 11/29/19 20 2020 Inactive quetiapine 100 mg tablet RxNorm: 577570 1 Tablet(s) Oral every night at bedtime 11/28/19 20 2019 Inactive sertraline 100 mg tablet RxNorm: 830766 1 Tablet(s) Oral 11/28/19 20 2019 Inactive omeprazole 20 mg capsule,delayed release RxNorm: 887067 1 Capsule(s) Oral every day 11/20/19 20 2019 Inactive amoxicillin 250 mg capsule RxNorm: 780961 1 Capsule(s) Oral three times a day 11/07/19 20 2019 Inactive multivitamin with iron-mineral tablet RxNorm: 1 Tablet(s) Oral every day 10/29/19 20 2021 Inactive cetirizine 10 mg tablet RxNorm: 1244789 1 Tablet(s) PO daily 10/20/19 20 2019 Inactive This refill negates all other refills of this medication. Please do not auto refill Singulair 10 mg tablet RxNorm: 315440 1 Tablet(s) PO daily 10/20/19 20 2019 Inactive This refill negates all other refills of this medication gabapentin 300 mg capsule RxNorm: 320278 1 Capsule(s) PO TID 10/20/19 20 2019 Inactive lisinopril 2.5 mg tablet RxNorm: 325988 1 Tablet(s) PO daily 10/20/19 20 2019 Inactive levothyroxine 50 mcg tablet RxNorm: 325761 1 Tablet(s) PO daily 10/20/19 20 2019 Inactive This refill negates all other refills of this medication fenugreek seed extract 500 mg capsule RxNorm: 1 Capsule(s) Oral three times a day 10/17/19 20 2021 Inactive hydrochlorothiazide 25 mg tablet RxNorm: 919752 1 Tablet(s) Oral every day 10/17/19 20 2019 Inactive Alcohol Prep Pads RxNorm: 551004 1 Patch TOP QAM 10/16/192020 Inactive loperamide 2 mg tablet RxNorm: 293335 1 Tablet(s) Oral as needed take one [...] 09/19/202019 Inactive hydrochlorothiazide 25 mg tablet RxNorm: 121473 1 Tablet(s) Oral every day 09/19/202019 Inactive Sudafed 12 Hour 120 mg tablet,extended release RxNorm: 5595039 1 Tablet(s) Oral every 12 hours as needed 09/11/202018 Inactive omeprazole 20 mg capsule,delayed release RxNorm: 173248 1 Capsule(s) Oral every day 09/07/20 19 2019 Inactive Sudafed 12 Hour 120 mg tablet,extended release RxNorm: 0673206 1 Tablet(s) Oral every 12 hours as needed 09/04/20 19 2018 Inactive pantoprazole 40 mg tablet,delayed release RxNorm: 870510 1 Tablet(s) Oral every day 08/24/20 19 2018 Inactive discontinue any other H2Blkr. and PPI albuterol sulfate 2.5 mg/3 mL (0.083 %) solution for nebulization RxNorm: 860468 1 Vial Inhalation every four hours as needed as needed for dyspnea 08/17/202019 Inactive 60/box. This refill negates all other refills of this medication. Please do not fill early. Please do not auto refill. Symbicort 160 mcg-4.5 mcg/actuation HFA aerosol inhaler RxNorm: 5417856 2 Puff(s) INH BID 08/17/20 No Stop Date Active Alcohol Prep Pads RxNorm: 518199 1 Patch TOP QAM 08/17/202019 Inactive Ventolin HFA 90 mcg/actuation aerosol inhaler RxNorm: 784330 2 Puff(s) INH QID 08/09/202019 Inactive Please do not fill early. Please do not auto refill. This refill negates all other refills of this medication True Metrix Glucose Test Strip RxNorm: 1 Test Strips Miscellaneous QAM 08/09/20 19 2019 Inactive 100/container atorvastatin 40 mg tablet RxNorm: 659307 1 Tablet(s) Oral every day 07/04/20 19 2019 Inactive levmetamfetamine 50 mg nasal inhaler RxNorm: 1 Unit(s) NASAL Q3-4H Do not use more than every 3 hours or 8 times/24hours 06/26/20 19 2021 Inactive Please do not auto refill. This refill negates all other refills of this medication buspirone 7.5 mg tablet RxNorm: 119004 1 Tablet(s) PO BID 06/26/20 19 2020 Inactive This refill negates all other refills of this medication hydrochlorothiazide 12.5 mg tablet RxNorm: 107804 1 Tablet(s) PO QAM 06/26/20 19 2019 Inactive Ventolin HFA 90 mcg/actuation aerosol inhaler RxNorm: 958503 2 Puff(s) INH QID 06/26/20 19 2018 Inactive Please do not fill early. Please do not auto refill. This refill negates all other refills of this medication Singulair 10 mg tablet RxNorm: 541412 1 Tablet(s) PO daily 06/26/20 19 2019 Inactive This refill negates all other refills of this medication cetirizine 10 mg tablet RxNorm: 7104746 1 Tablet(s) PO daily 06/26/20 19 2019 Inactive This refill negates all other refills of this medication. Please do not auto refill levothyroxine 50 mcg tablet RxNorm: 648026 1 Tablet(s) PO daily 06/26/20 19 2019 Inactive This refill negates all other refills of this medication diclofenac sodium 75 mg tablet,delayed release RxNorm: 251002 1 Tablet(s) PO BID 06/26/20 19 2019 Inactive This refill negates all other refills of this medication ranitidine 150 mg tablet RxNorm: 910110 1 Tablet(s) PO BID 06/26/20 19 2018 Inactive This refill negates all other refills of this medication Calcium 600-D3 Plus (mag-zinc) 600 mg calcium-800 unit-50 mg tablet RxNorm: 1 Tablet(s) PO daily take an additonal tablet for itching. 06/26/20 19 2018 Inactive This refill negates all other refills of this medication albuterol sulfate 2.5 mg/3 mL (0.083 %) solution for nebulization RxNorm: 930626 1 Vial INH QID 06/26/20 19 2018 Inactive 60/box. This refill negates all other refills of this medication. Please do not fill early. Please do not auto refill. lisinopril 2.5 mg tablet RxNorm: 024189 1 Tablet(s) PO daily 06/21/20 19 2019 Inactive gabapentin 300 mg capsule RxNorm: 197919 1 Capsule(s) PO TID 06/21/20 19 2019 Inactive atorvastatin 20 mg tablet RxNorm: 658713 1 Tablet(s) PO QHS 06/07/20 19 2018 Inactive This refill negates all other refills of this medication TRUEplus Lancets 30 gauge RxNorm: 1 Lancets Miscellaneous QAM 05/29/20 19 2018 Inactive 100/box gabapentin 300 mg capsule RxNorm: 597259 1 Capsule(s) PO TID 05/03/20 19 2018 Inactive Flintstones Complete (iron) 18 mg iron chewable tablet RxNorm: 1 Tablet(s) PO daily 04/04/202021 Inactive This refill negates all other refills of this medication gabapentin 300 mg capsule RxNorm: 497338 1 Capsule(s) PO TID as needed 02/01/202018 Inactive True Metrix Glucose Test Strip RxNorm: 1 Test Strips Miscellaneous QA 02/01/20 19 2018 Inactive 100/container Alcohol Prep Pads RxNorm: 057558 1 Patch TOP QA 02/01/202018 Inactive TRUEplus Lancets 30 gauge RxNorm: 1 Lancets Miscellaneous QAM 02/01/20 19 2018 Inactive 100/box lisinopril 2.5 mg tablet RxNorm: 415912 1 Tablet(s) PO daily 12/28/192018 Inactive ranitidine 150 mg tablet RxNorm: 384951 1 Tablet(s) PO BID 10/21/19 19 2018 Inactive This refill negates all other refills of this medication albuterol sulfate 2.5 mg/3 mL (0.083 %) solution for nebulization RxNorm: 200159 1 Vial INH QID 10/21/192018 Inactive 60/box. [...] this medication gabapentin 300 mg capsule RxNorm: 513249 1 Capsule(s) PO TID as needed 10/21/19 19 2018 Inactive atorvastatin 20 mg tablet RxNorm: 053671 1 Tablet(s) PO QHS 10/21/19 19 2018 Inactive This refill negates all other refills of this medication trazodone 50 mg tablet RxNorm: 448300 1 Tablet(s) PO QHS 10/21/19 19 2018 Inactive This refill negates all other refills of this medication Ventolin HFA 90 mcg/actuation aerosol inhaler RxNorm: 684616 2 Puff(s) INH QID 10/21/19 19 2018 Inactive Please do not fill early. Please do not auto refill. This refill negates all other refills of this medication Calcium 600-D3 Plus 600 mg calcium-800 unit-50 mg tablet RxNorm: 1 Tablet(s) PO daily take an additonal tablet for itching. 10/21/192018 Inactive This refill negates all other refills of this medication Singulair 10 mg tablet RxNorm: 794036 1 Tablet(s) PO daily 10/21/192018 Inactive This refill negates all other refills of this medication buspirone 7.5 mg tablet RxNorm: 675931 1 Tablet(s) PO BID 10/21/192018 Inactive This refill negates all other refills of this medication diclofenac sodium 75 mg tablet,delayed release RxNorm: 045351 1 Tablet(s) PO BID 10/21/192018 Inactive This refill negates all other refills of this medication hydrochlorothiazide 12.5 mg tablet RxNorm: 750419 1 Tablet(s) PO QAM 10/21/19 19 2018 Inactive metoprolol succinate ER 50 mg tablet,extended release 24 hr RxNorm: 178218 1 Tablet(s) PO daily 10/21/192018 Inactive This refill negates all other refills of this medication levothyroxine 50 mcg tablet RxNorm: 827998 1 Tablet(s) PO daily 10/21/192018 Inactive This refill negates all other refills of this medication cetirizine 10 mg tablet RxNorm: 3030442 1 Tablet(s) PO daily 10/21/19 19 2018 Inactive This refill negates all other refills of this medication. Please do not auto refill Flintstones Complete (iron) 18 mg iron chewable tablet RxNorm: 1 Tablet(s) PO daily 10/21/19 19 2018 Inactive This refill negates all other refills of this medication buspirone 7.5 mg tablet RxNorm: 819881 1 Tablet(s) PO BID 10/12/19 19 2018 Inactive cetirizine 10 mg tablet RxNorm: 4642434 1 Tablet(s) PO daily 09/28/20 18 2018 Inactive Guaiasorb DM 10 mg-100 mg/5 mL oral liquid RxNorm: 136589 10 Milliliter(s) PO As needed every 4 hr 09/24/20 18 2018 Inactive Vicks Vaporub 4.7 %-1.2 %-2.6 % topical ointment RxNorm: 0687231 1 Application TOP TID 09/24/20 18 2018 Inactive levmetamfetamine 50 mg nasal inhaler RxNorm: 1 Unit(s) NASAL Q3-4H 09/24/20 18 2017 Inactive sertraline 50 mg tablet RxNorm: 538794 1 Tablet(s) PO daily 09/09/20 18 2018 Inactive Please note dose trazodone 50 mg tablet RxNorm: 671220 1 Tablet(s) PO QHS 09/06/20 18 2018 Inactive sertraline 50 mg tablet RxNorm: 227627 1 Tablet(s) PO daily 09/06/20 18 2017 Inactive amoxicillin 500 mg tablet RxNorm: 103835 1 Tablet(s) PO Q12H 08/31/20 18 2017 Inactive albuterol sulfate 2.5 mg/3 mL (0.083 %) solution for nebulization RxNorm: 943443 1 Vial INH QID 08/10/20 18 2018 Inactive 60/box. Please do not fill early. Please do not auto refill. Prozac 10 mg capsule RxNorm: 680227 1 Capsule(s) PO daily 08/09/20 18 2017 Inactive buspirone 7.5 mg tablet RxNorm: 953821 1 Tablet(s) PO BID 08/09/20 18 2018 Inactive gabapentin 300 mg capsule RxNorm: 264765 1 Capsule(s) PO TID as needed 08/01/20 18 2018 Inactive hydrochlorothiazide 12.5 mg tablet RxNorm: 385603 1 Tablet(s) PO QAM 08/01/20 18 2018 Inactive ranitidine 150 mg tablet RxNorm: 659706 1 Tablet(s) PO BID 08/01/20 18 2018 Inactive Macrobid 100 mg capsule RxNorm: 343555 1 Capsule(s) PO Q12H 06/21/20 18 2017 Inactive Singulair 10 mg tablet RxNorm: 050103 1 Tablet(s) PO daily 06/14/20 18 2018 Inactive Ventolin HFA 90 mcg/actuation aerosol inhaler RxNorm: 2116370 2 Puff(s) INH QID 06/14/20 18 2018 Inactive Singulair 10 mg tablet RxNorm: 251293 1 Tablet(s) PO daily 06/14/20 18 2017 Inactive buspirone 7.5 mg tablet RxNorm: 022031 1 Tablet(s) PO BID 06/14/20 18 2017 Inactive Prozac 10 mg capsule RxNorm: 582094 1 Capsule(s) PO daily 06/14/20 18 2017 Inactive Neilmed Pediatric Sinus Rinse Refill packet RxNorm: 1 Unit Dose NASAL PRN 05/31/20 18 2021 Inactive diclofenac sodium 75 mg tablet,delayed release RxNorm: 681497 1 Tablet(s) PO BID 05/31/20 18 2017 Inactive lisinopril 2.5 mg tablet RxNorm: 590055 1 Tablet(s) PO daily 05/31/20 18 2017 Inactive metoprolol succinate ER 50 mg tablet,extended release 24 hr RxNorm: 898205 1 Tablet(s) PO daily 05/31/20 18 2017 Inactive levothyroxine 50 mcg tablet RxNorm: 317839 1 Tablet(s) PO daily 05/31/20 18 2017 Inactive TRUEplus Lancets 30 gauge RxNorm: 1 Lancets Miscellaneous QAM 05/31/20 18 2017 Inactive 100/box Ventolin HFA 90 mcg/actuation aerosol inhaler RxNorm: 072797 2 Puff(s) INH QID 05/31/20 18 2017 Inactive Aleve 220 mg capsule RxNorm: 6979362 1 Capsule(s) PO BID 05/31/20 18 2018 Inactive ranitidine 150 mg tablet RxNorm: 181102 1 Tablet(s) PO BID 05/31/20 18 2017 Inactive gabapentin 300 mg capsule RxNorm: 443455 1 Capsule(s) PO TID as needed 05/31/20 18 2017 Inactive atorvastatin 20 mg tablet RxNorm: 187247 1 Tablet(s) PO QHS 05/31/20 18 2017 Inactive True Metrix Glucose Test Strip RxNorm: 1 Test Strips Miscellaneous QA 05/31/20 18 2017 Inactive 50/container Calcium 600-D3 Plus 600 mg calcium-800 unit-50 mg tablet RxNorm: 1 Tablet(s) PO daily take an additonal tablet for itching. 05/31/20 18 2017 Inactive hydrochlorothiazide 12.5 mg tablet RxNorm: 681749 1 Tablet(s) PO QAM 05/31/20 18 2017 Inactive Flintstones Complete (iron) 18 mg iron chewable tablet RxNorm: 1 Tablet(s) PO daily 05/31/20 18 2017 Inactive d-mannose oral powder RxNorm: PO 18 2021 Inactive True Metrix Glucose Meter RxNorm: miscellaneous 08/17/20 19 2018 Inactive sertraline 50 mg tablet RxNorm: 033426 1 Tablet(s) PO daily 11/28/19 20 2019 Inactive loperamide 2 mg tablet RxNorm: 197078 oral 09/29/20 19 2018 Inactive Symbicort 160 mcg-4.5 mcg/actuation HFA aerosol inhaler RxNorm: 9556967 2 Puff(s) INH BID 08/17/20 19 2018 Inactive Medication Administered No Medication Administered data Results Observation Observation Code Item Item Code Result Date S ervice Location COMPLETE CBC W/ DIFF WBC 77716 WBC 6690-2 7.1 K/ul 11/03/2021 [facility] [address] [place], [place] [id number] CBC W/ DIFF [id number] M/uL11/03/2021 [facility] [address], [place] [id number] CBC W/ DIFF [id number] g/dL11/03/2021 [facility] [address], [place] [id number] CBC W/ DIFF SUO95607Yjooajctgm4651-892.0 %11/03/2021 [facility] [address] [place], [place] [address]YSKNPVFA CBC W/ DIFF ZGQ47347KNN908-205.3 fL11/03/2021 [facility] [address], [place] [address]QJBZTSUC CBC W/ DIFF QSS35233XXM493-173.8 pg11/03/2021 [facility] [address], [place] [address]LUQPGKUD CBC W/ DIFF RLE47239BQKX803-436.0 g/dL11/03/2021 [facility] [address], [place] [address]REZIMZCZ CBC W/ DIFF XXE00527WNI746-365.9 %11/03/2021 [facility] [address], [place] [address]UIXAJUMO CBC W/ DIFF UXV32153Fnkzvmqf Yksnx195-9464 K/uL11/03/2021 [facility] [address], [place] [address]DTADWYMQ CBC W/ DIFF CRR85015GTA77989-83.8 fL11/03/2021 [facility] [address], [place] [address]WWWEHTMY CBC W/ DIFF CPI11590Thgbrtvdodm %770-865.5 %11/03/2021 [facility] [address], [place] [address]PPVZCSJI CBC W/ DIFF SCC50697Khaeahdvbht %736-925.8 %11/03/2021 [facility] [address], [place] [address]MMRWVCIG CBC W/ DIFF DZV78189Tityntdpi %5905-57.1 %11/03/2021 [facility] [address], [place] [address]RPHQDFME CBC W/ DIFF CDI03592Utfbrcnaofa %713-81.0 %11/03/2021 [facility] [address], [place] [address]IEJAQYRY CBC W/ DIFF IXM82574Invatgeyk%706-20.6 %11/03/2021 [facility] [address], [place] [address]XGVYTNMX CBC W/ DIFF FEO72684Ulwukyet Blhmywefwi963-00478 /ul 11/03/2021 [facility] [address], [place] [address]CBDUQNOR CBC W/ DIFF UXE27985Vgakutto Rvrlkcvmjg80890-24805 /ul 11/03/2021 [facility] [address], [place] [address]JSGZHPUV CBC W/ DIFF MYP23906Jfsiueco Hjjccqee496-1869 /ul 11/03/2021 [facility] [address], [place] [address]LNSWIQIU CBC W/ DIFF OPD80876Qdmznpyx Kydhvkqkfr001-415 /ul 11/03/2021 [facility] [address], [place] [address]OZWPGQMZ CBC W/ DIFF ZWX54015Htfflfgd Xickapwf754-834 /ul11/03/2021 [facility] [address], [place] [address]EEYQFEM B-1154738Thciiwo Z127616-2237 pg/mL11/03/2021 [facility] [address], [place] [address]UYQI 14 (METABOLIC PANEL)82485Ulzljpc2717-3822 mg/dL11/03/2021 [facility] [address], [place] [address]KQWV 14 (METABOLIC PANEL)46849XML0067-338 mg/dL11/03/2021 [facility] [address] [place], [place] [address]VUQY 14 (METABOLIC PANEL)69430Imxzshfmzk7397-42.7 mg/dL02/10/2021 [facility] [address] [place] [address]TCGR 14 (METABOLIC PANEL)47215AQB/Creat Rfwxe9923-116.502 [facility] [address] [place], [place] [address]WRHY 14 (METABOLIC PANEL)15075RUM Utlgmlwcq27250-1964 mL/min/1.73m2 11/03/2021 [facility] [address] [place] [address]FWSK 14 (METABOLIC PANEL)60336Jbzmnh9721-5746 mmol/L11/03/2021 [facility] [address] [place], [place] [address]SYDZ 14 (METABOLIC PANEL)74752Ttgzboiiv4028-03.6 mmol/L11/03/2021 [facility] [address] [place] [address] 186[address]HTWM 14 (METABOLIC PANEL)80106Ejzqpdnl6290-3150 mmol/L11/03/2021 [facility] [address] [place] [address]GEAS 14 (METABOLIC PANEL)87896Qspjr EY26448-134 mmol/L11/03/2021 [facility] [address] [place] [address] 89672ZOHD 14 (METABOLIC PANEL)14104Nedao Mxm2237-535.6 mEq/L11/03/2021 [facility] [address] [place] [address] 89156CYDU 14 (METABOLIC PANEL)05803Nzzhvhfiqc Serum Arpqjueavo85646-1591 mOsm/kg11/03/2021 [facility] [address] [place] [address] 13375RCYA 14 (METABOLIC PANEL)76377Giflype40891-50.6 g/dL11/03/2021 [facility] [address] [place] [address] 23239BCPQ 14 (METABOLIC PANEL)54808Seufl Eklmpou3888-77.8 g/dL11/03/2021 [facility] [address] [place] [address] 409[address]XUMW 14 (METABOLIC PANEL)16979Wcqhsxry7072-41.2 g/dL11/03/2021 [facility] [address] [place] [address] 11777BZOP 14 (METABOLIC PANEL)37180Lmkzcwl/Globulin Zjykj1939-14.1 11/03/2021 [facility] [address] [place] [address] 276[address]DLRJ 14 (METABOLIC PANEL)21065LBW GLNB9825-902.00 U/L02/10/2021 [facility] [address] [facility] [place] [address]MKSB 14 (METABOLIC PANEL)90647TAWN/LPT4319-314 U/L11/03/2021 [facility] [address] [facility] [place] [address]QDUR 14 (METABOLIC PANEL)60184GNVM/TPL9337-294 U/L11/03/2021 [facility] [address] [facility] [place] [address]AOSA 14 (METABOLIC PANEL)35764Opdgo Adyqiitei2829-22.3 mg/dL 11/03/2021 [facility] [address] [facility] [place] [address]MCZN 14 (METABOLIC PANEL)66230Dbvuarh61166-35.2 mg/dL11/03/2021 [facility] [address] [facility] [address]GFEU 14 (METABOLIC PANEL)86497Qbkzwljch Uwgvijn02007-99.7 mg/dL 11/03/2021 [facility] [address], [place] [address]ODKJKY LDL - LLKG42002RPZ-Zlwica31028-4458 mg/dL11/03/2021 [facility] [address] [place], [place] [address]TSN - RKTH04061MZG5816-562 mg/dL11/03/2021 [facility] [address] [facility] [place] [address]FYW - HRHR61855UUG87218-845 %11/03/2021 [facility] [address] [place], [place] [address]A8P-EIWBEORUOUZLVXC6997-2Vhort HGB H8Z90138-12.6 %11/03/2021 [facility] [address] [place], [place] [address]V5O-FMWERWFTCVYWWTR1957-9gVT11016-2883 mg/dL11/03/2021 [facility] [address] [place], [place] [address]RYLZKFQLVY80320Cuntrtygdm64958-773 mg/dL11/03/2021 [facility] [address] [place], [place] [address]MOWPPXNYO01060Jyepsksqu66279-30.3 mg/dL11/03/2021 [facility] [address] [place], [place] [address]XCE99069IET6475-7187.5 pg/mL11/03/2021 [facility] [address] [place] [address]CME65654GDE57250-38.390 uIU/mL11/03/2021 [facility] [address] [address]PEFWLDZ W63200Horwmkt M89953-758.4 ng/mL11/03/2021 [facility] [address] [place] [address]KAFTARQHTPX17855Ofxrjgnvwhh1203-5369 mg/dL11/03/2021 [facility] [address] [place] [address]EBQJQBARJZDNT30560Fojrwccgarmat2641-5783 mg/dL11/03/2021 [facility] [address] [address]JGZGWQZWZXCBR14560MNJJ79846-062 mg/dL11/03/2021 [facility] [address] [place] [address] Procedures Procedure Codes Date Patient Health Questionnaire CPT-4: DPHQ 01/2022 Frailty Screening CPT-4: SFD 05/20/2021 Hypertension CPT-4: HTN 04/01/2021 Tobacco Assessment/Screening CPT-4: TCA 08/2021 Patient Health Questionnaire CPT-4: DPHQ 08/2021 Mini Mental State Exam CPT-4: DMMA Annual Wellness Visit (Subsequent Visit) CPT-4: G0439 01/13/2021 Advanced Care Planning CPT-4: V[facility] CPT-4: DFRA01/13/2021emmes Fany AssessmentCPT-4: DSWA12/17/2020Urinalysis, dip stickCPT-4: 745531109/24/2020Patient Health QuestionnaireCPT-4: DPHQ 08/19/2020ElectrocardiogramCPT-4: 1491229Tobacco Assessment/Screening CPT-4: TCA01/01/2020Fall Risk AssessmentSNOMED CT: 748981523 CPT-4: DFRA01/01/2020Functional AssessmentCPT-4: DFA01/01/2020Semmes Fany AssessmentCPT-4: DSWA11/28/2019Patient Health QuestionnaireCPT-4: DPHQ11/28/2019 [place] Fany AssessmentCPT-4: DS10/17/2019HypertensionCPT-4: HTN10/17/[address]: 704[address]1671 CPT-4: DFRA09/19/2019Functional AssessmentCPT-4: DFA111/20/2018Urinalysis, dip stickCPT-4: 4956742Tobacco Assessment/ScreeningCPT-4: TCA05/24/2019 Patient Health QuestionnaireCPT-4: DPHQ05/24/2019AHA/REBECCA Classification AssessmentCPT-4: DAHA04/25/2019Controlled Substance ReportCPT-4: CTRSU04/25/2019 Urinalysis, dip stickCPT-4: 226513903/28/2019Urinalysis, dip stickCPT-4: 54337 03/28/20197815Y2Y-KwfepeitkjmrogmMVF-2: 64679HdzbhymR9F-TyocewnhyjlrltwSKG-1: 35315 VxtrfvdL8Y-NqhhvydtveqevtuCHZ-9: 34844XzxqjhsJ6L-ZbojlcjdbhdrtcrUZB-3: 33083 KinxhwbX8Y-QgvpvditwubuzcqPGP-7: 83823SbllpmlJ3U-QilserckyyryqghZHW-2: 57270 PchijdpQ2Z-WwxoupsjpnowemrGMC-6: 84031RnaaepuE0S-FnzbsbirujhauovRIR-8: [address]: 547903453 CPT-4: E42Sfrotou Vital Signs Date Vital 11/02/2021 Blood Pressure 1: 108/86 Code: 8480-6 BMI: 55.2 Code: 08253-5 Heart Rate 1: 81 bpm Height: 4'11 Code: 8302-2 Respiratory Rate: 16 bpm SpO2: 98% Temperature: 36.3 (C) / 97.3 (F) Weight: 273 lbs 6 oz Code: 64898-5 Reason For Visit Reason For Visit Effective Dates Notes diabetes mellitus 11/02/2021 sleep apnea-obstruction 11/02/2021 Encounters Encounter Performer Location Location Address Codes Magdi e ([id number]) HOME VISIT EST CAESAR NT Diagnosis: Adult BMI 50.0-59.9 kg/sq m[ICD10: Z68.43] Diagnosis: Type 2 diabetes mellitus with peripheral neuropathy[ICD10: E11.42] Diagnosis: Syncope and collapse[ICD10: R55] Diagnosis: Family history of seizures[ICD10: Z84.89] Diagnosis: Obstructive sleep apnea (adult) (pediatric)[ICD10: G47.33]Chivo Elizabeth N[address] [place] [address] CPT-4: 9415625/ Plan of Care Planned Activity Notes Codes Status Date Patient Education: Patient Medication Summary Gprpbylog34/31/2022atient Education: HzfudnckRxxtnsjxb85/31/2022ppointment: Chivo Bishop WPtel: [address] [place] [address] [id number]: Chivo Bishop WPtel: [address] [place] [address] USETV111/11/2020ppointment: Chivo Bishop WPtel: [address] [place] [address] USETV110/13/2020ppointment: Chivo Bishop WPtel: [address] [place] [address] USETV1ppointment: Chivo Bishop WPtel: [address] [place] [address] FPEWFR1506/10/2021ppointment: Anna Culver WPtel: [address] [place] [address] USETV06/02/2021ppointment: Chivo Bishop WPtel: [address] [place] [address] USETV05/20/2021ppointment: Anna Culver WPtel: [address] [place] [address] USETV04/28/2021ppointment: Chivo Bishop WPtel: [address] [facility] [address] [place] [address] USETV04/15/2021ppointment: Anna Culver WPtel: [phone] [place] [address] [place] [address] [id number]: Anna Culvre WPtel: [id number] [place] [address] [place] [address] USETV03/24/2021ppointment: Anna Culver WPtel: [address] [place] [address] [place] [address] USETV03/13/2021ppointment: Anna Culver WPtel: [address] [place] [address] [id number]: Chivo Bishop WPtel: [address] [place] [address] [id number]: Anna Culver WPtel: [id number] [place] [address] [place] [address] USET01/13/2021ppointment: Anna Culver WPtel: [id number] [place] [address] [place] [address] [id number]: Chivo Bishop WPtel: [id number] [place] [address] [place] [address] USETV11/28/2020ppointment: Anna Culver WPtel: [phone] [place] [address] [place] [address] USETV11/24/2020ppointment: Anna Culver WPtel: [address] [place] [address] [place] [address] [id number]: Anna Culver WPtel: [phone] [place] [address] [place] [address] [id number]: Anna Culver WPtel: [phone] [place] [address] [address] [place] [address] USETV110/26/2019Appointment: Anna Culver WPtel: [address] [place] [address] USETV110/19/2019Appointment: Anna Culver WPtel: [address] [place] [address] USETV1Appointment: Anna Culver WPtel: [address] [place] [address] USETV1Appointment: Gianna Birmingham MCt: [address] [facility] [address] [id number] MGPHQM1007/02/2020Appointment: Anna Culver WPtel: [address] [place] [address] [id number]: Anna Culver WPtel: [address] [place] [address] [id number]: Anna Culver WPtel: [address] [place] [address] [id number]: Anna Culver WPtel: [address] [place] [address] [place] [address] [id number]: Anna Culver WPtel: [address] [place] [address] [place] [address] [id number]: Anna Culver WPtel: [address] [place] [address] [id number]: Anna Culver WPtel: [address] [place] [address] [id number]: Anna Culver WPtel: [address] [place] [address] [place], [place] [id number]: Anna Culver WPtel: [address] [place] [address] [place], [place] [id number]: Anna Culver WPtel: [address] [place] [address] [place] [address] [id number]: Sudha Hernadez WPtel: [address] [facility] [place] [address] [id number]: Sudha Hernadez WPtel: [address] [facility] [place] [address] [id number]: Charlene Oropeza WPtel: [address] [facility] [place] [address] [id number]: Enedelia Delgado45Appointment: Charlene Oropeza WPtel: [address] [facility] [place] [address] [id number]: Haupricht, Rasta WPtel: [address] [facility] [place] [address] [id number]: Haupricht, Rasta WPtel: [address] [facility] [place] [address] [id number]: Haupricht, Rasta WPtel: [address] [facility] [place] [address] [id number]: Haupricht, Rasta WPtel: [address] [facility] [place] [address] [id number]: Pending Gynecology Referral InformationReferral ProcessedReferral: Pending Pulmonology Referral InformationReferralProcessed Referral: Pending Psychiatry Referral InformationReferralInitiatedReferral: Pending Respiratory Services Referral InformationReferralInitiatedReferral: Pending Ophthalmology Referral InformationReferralInitiatedReferral: [facility] WPtel: [address] [facility] [address] [place] USWriter placed a call out to the patient to notify her that it has been recommended that she be seenby 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 Patient agreed to be seen, does not have a provider of choice and no transportationissues. Education Intern faxed referral and clinical notes to [facility] in [place], [place] near the patient's home. Patient to [...] seen and prefers a provider in the [place] or [place] area. Education Intern placed a call out to everyone listed in the area and the only location that was able to accept the patient's insurance was [address] [address] and spoke with Maylin. Maylin asked that the patient's referral, face sheet and visit notes be faxed to . Education Intern faxed over requested documents. Patient appointment confirmation letter generated and mailed to her home address. Patient to call to schedule an appointment.ProcessedReferral: [facility] WPtel: [address] [facility] [address] [id number] USPatient notified that it has been advised that she be seen by Neurology. Patient agreed to be seen and prefers to be seen by a provider in the [place], [place] area. Patient denies any concerns with transportation, and prefers to schedule her own appointment. Education Intern placed a call out to [facility] and spoke with Neeraj P: who confirmed that their office is able to acceptnew patients and the patient's insurance. After confirming the providers fax number, repairer typewriter faxed over the patient's referral, and most [...]
--- OUTSIDE RECORDS SUMMARY | 2021-11-03 20:00 | XMS_ITS | CCD ---
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 Manager Compensation Name Role Phone Palomo KING, Anna Primary Care Provider Unav ailable Unavailable Chronic Care Management Unavaila ble Summary Purpose DataExchange Insurance Providers Payer name Policy type / Coverage type Covered alliance party ID Effective Begin Date Effective End Date [facility] [employer] [facility] [id number] Unknown Unknown Family history Mother Diagnosis Age [...] 05/31/2018 Education level Unknown Some High School 10th05/31/20187598FqdxustdhnMtypxknOolbwrycmp12/29/2018Tobacco historySNOMED CT: [id number] never smoked or chewed mbyadcu5005/31/2018Alcohol historySNOMED CT: 271924117Cmkst drinks squzuco4605/31/2018Has the patient ever used illegal drugs? UnknownHas never used illegal drugs05/31/2018DNR Order/ Advanced Directive UnknownFull Code05/31/2018 Allergies, Adverse Reactions, Alerts Substance Reaction Codes Entered Date Inactivated Date Status OxyContin itch, RxNorm: 602232 01/13/2021 No Inactive Da te Active *No known food allergies Ypeyoqb6309/06/2018No Inactive DateActiveMethylprednisolonehivesRxNorm: 6902 09/06/2018No Inactive DateActive Problems Condition Codes Effective Dates Condition St atus Adult BMI 50.0-59.9 kg/sq m ICD-10: Z68. 43 ICD-9: V85.43005/30/2018ActiveFamily history of seizuresICD-10: Z84.89 ICD-9: V19.807/1ActiveObstructive sleep apnea (adult) (pediatric)ICD-10: G47.33 ICD-9: 327.2309/ActiveSyncope and collapseICD-10: R55 ICD-9: 780.ActiveType 2 diabetes mellitus with peripheral neuropathy ICD-10: E11.42 ICD-9: 250.6002/ActiveDiarrheaICD-10: R19.7 ICD-9: 787.9111/1ActivePatient not seenICD-10: UXZ.01 ICD-9: UXZ.0112/ctiveGERD (gastroesophageal reflux disease)ICD-10: K21.9 ICD-9: 530.8112ActiveHyperlipidemia, unspecifiedICD-10: [...] disorder, unspecifiedICD-10: F43.10 ICD-9: 309.8112ActiveBlisterICD-10: T14.8XXA ICD-9: 919.206/1ActiveEncounter for screening for tobacco useICD-10: Z01.89 ICD-9: V72.8503ActiveElevated liver enzymesICD-10: R74.8 ICD-9: 790.504/ctiveHistory of bladder surgeryICD-10: Z98.890 ICD-9: V45.8904/ctiveUrinary retention with incomplete bladder emptying ICD-10: R33.9 ICD-9: 788.2104/ctive(Z00.01-V70.0) Encounter for general adult medical examination with abnormal findingsICD-10: Z00.01 ICD-9: V70.004/ctive(Z13.31-V79.0) Encounter for screening for depressionICD-10: Z13. ICD-9: V79.ctiveEncounter for immunizationICD-10: Z23 ICD-9: V04.8109InactiveEssential (primary) hypertensionICD-10: I10 ICD-9: 401.901InactiveApnea, not elsewhere classifiedICD-10: R06.81 ICD-9: 786.0305/10/2018InactiveChest pain, unspecifiedICD-10: R07.9 ICD-9: 786.5002InactiveChronic kidney disease, unspecifiedICD-10: N18.9 ICD-9: 585.909InactiveEncounter for immunizationICD-10: Z23 ICD-9: V03.907/InactiveEncounter for preprocedural cardiovascular examinationICD-10: Z01.810 ICD-9: V72.8106/InactiveHeadacheICD-10: R51 ICD-9: 784.001InactiveOther 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ICD-10: Z79.899 ICD-9: V58.6907/InactiveType 2 [...] breastICD-10: Z12.31 ICD-9: V76.1207/ActiveFecal incontinenceICD-10: R15.9 ICD-9: 787.6003/ActiveMixed incontinenceICD-10: N39.46 ICD-9: 788.3308/ActiveAsthmaICD-10: J45.909 ICD-9: 493.9011ActivePatient Not SeenICD-10: UXZ.01 ICD-9: XZ0.107ActiveAbnormal electrocardiogram [ECG] [EKG]ICD-10: R94.31 ICD-9: 794.31005/30/2018ActiveEdema, unspecifiedICD-10: R60.9 ICD-9: 782.310ActiveLong term (current) use of non-steroidal anti- inflammatories (NSAID)ICD-10: Z79.1 ICD-9: V58.64006/13/2018Active Medications Medication Codes Instructions Start Date Stop Date Status Fill Instructions Ozempic 0.25 mg or 0.5 mg (2 mg/1.5 mL) subcutaneous pen injector RxNorm: 9446716 inject 0.5 milligrams subcutaneously every week 022 2021 Inactive Ozempic 0.25 mg or 0.5 mg (2 mg/1.5 mL) subcutaneous pen injector RxNorm: 5864449 Take 0.5 Capsule(s) Injection once a week 022 2021 Inactive omeprazole 20 mg capsule,delayed release RxNorm: 524287 Take 1 Capsule(s) Oral every evening 021 2020 Inactive Ozempic 0.25 mg or 0.5 mg (2 mg/1.5 mL) subcutaneous pen injector RxNorm: 1513992 Take 0.25 Milligram(s) Subcutaneous once a week 021 2021 Inactive Easy Touch Alcohol Prep Pads RxNorm: 201678 USE DIRECTED EACH MORNING 021 2021 Inactive Probiotic 10 billion cell capsule RxNorm: 6406613 Take 1 Capsule(s) Oral every day 021 2021 Inactive levothyroxine 50 mcg tablet RxNorm: 180066 Take 1 Tablet(s) Oral every day 021 2020 Inactive Acid Gas Leak Tester (famotidine) 20 mg tablet RxNorm: 713483 Take 1 Tablet(s) Oral every morning 021 2020 Inactive Heartburn Relief (famotidine) 10 mg tablet RxNorm: 197608 Take 1 Tablet(s) Oral QAM 021 2020 Inactive levothyroxine 50 mcg tablet RxNorm: 767464 Take 1 Tablet(s) Oral QD 021 2020 Inactive metformin 1,000 mg tablet RxNorm: 149125 1 Tablet(s) Oral two times a day 021 2021 Inactive Singulair 10 mg tablet RxNorm: 545567 TAKE (1) TABLET BY MOUTH DAILY 021 2020 Inactive lisinopril 2.5 mg tablet RxNorm: 865100 Take 1 Tablet(s) Oral every day 2020 Inactive hydrochlorothiazide 25 mg tablet RxNorm: 714441 Take 1 Tablet(s) Oral every day 021 2020 Inactive ondansetron 4 mg disintegrating tablet RxNorm: 652673 1 Tablet(s) Oral two times a day 2020 Inactive Sudafed 12 Hour 120 mg tablet,extended release RxNorm: 5361631 TAKE 1 TABLET BY MOUTH EVERY 12 HOURS NEEDED 2021 Inactive Heartburn Relief (famotidine) 10 mg tablet RxNorm: 053570 Take 1 Tablet(s) Oral every morning 021 2020 Inactive omeprazole 20 mg capsule,delayed release RxNorm: 641141 1 Capsule(s) Oral every evening 021 2020 Inactive sertraline 100 mg tablet RxNorm: 961747 2 Tablet(s) Oral every day 021 2020 Inactive levothyroxine 50 mcg tablet RxNorm: 117334 TAKE (1) TABLET BY MOUTH DAILY 021 2020 Inactive metformin 500 mg tablet RxNorm: 749959 1 Tablet(s) Oral two times a day take with 500mg to equal 1000mg 021 2020 Inactive gabapentin 300 mg capsule RxNorm: 904133 TAKE 1 CAPSULE BY MOUTH THREE TIMES A DAY 021 2020 Inactive lisinopril 2.5 mg tablet RxNorm: 760976 TAKE 1 TABLET BY MOUTH DAILY 021 2020 Inactive gabapentin 300 mg capsule RxNorm: 134696 TAKE 1 CAPSULE BY MOUTH THREE TIMES A DAY 021 2020 Inactive Singulair 10 mg tablet RxNorm: 518862 TAKE (1) TABLET BY MOUTH DAILY 2020 Inactive metformin 1,000 mg tablet RxNorm: 987864 1 Tablet(s) Oral two times a day 021 2020 Inactive atorvastatin 40 mg tablet RxNorm: 439174 1 Tablet(s) Oral every day 021 2020 Inactive omeprazole 20 mg capsule,delayed release RxNorm: 869140 1 Capsule(s) Oral every evening 2020 Inactive famotidine 10 mg tablet RxNorm: 732709 1 Tablet(s) Oral every morning 021 2020 Inactive Alcohol Prep Pads RxNorm: 425859 USE EACH MORNING 021 2020 Inactive omeprazole 20 mg capsule,delayed release RxNorm: 477867 1 Capsule(s) Oral two times a day 2021 Inactive omeprazole 20 mg capsule,delayed release RxNorm: 598920 TAKE 1 CAPSULE BY MOUTH EVERY DAY 2021 Inactive Macrobid 100 mg capsule RxNorm: 153888 1 Capsule(s) Oral every 12 hours with food 2020 Inactive omeprazole 20 mg capsule,delayed release RxNorm: 317505 1 Capsule(s) Oral two times a day 2021 Inactive metformin 1,000 mg tablet RxNorm: 582875 1 Tablet(s) Oral two times a day 2020 Inactive start on September 11, 2020 metformin 500 mg tablet RxNorm: 452511 1 Tablet(s) Oral two times a day take with 500mg to equal 1000mg 2019 Inactive gabapentin 300 mg capsule RxNorm: 073969 TAKE 1 CAPSULE BY MOUTH THREE TIMES DAILY 2020 Inactive cetirizine 10 mg tablet RxNorm: 6709195 TAKE (1) TABLET BY MOUTH DAILY 020 2020 Inactive metformin 500 mg tablet RxNorm: 579691 1 Tablet(s) Oral two times a day 2019 Inactive loperamide 2 mg tablet RxNorm: 119091 1 Tablet(s) Oral as needed take one tablet after each loose stool, maximum of 8 tablets in 24 hours 2021 Inactive Sudafed 12 Hour 120 mg tablet,extended release RxNorm: 6697618 TAKE 1 TABLET BY MOUTH EVERY 12 HOURS NEEDED 2019 Inactive hydrochlorothiazide 25 mg tablet RxNorm: 454529 TAKE (1) TABLET BY MOUTH EVERY DAY 020 2019 Inactive omeprazole 20 mg capsule,delayed release RxNorm: 606787 TAKE 1 CAPSULE BY MOUTH EVERY DAY 2020 Inactive metformin 500 mg tablet RxNorm: 771489 1 Tablet(s) Oral every day 2019 Inactive True Metrix Glucose Test Strip RxNorm: 1 Test Strips Miscellaneous two times a day as needed No Stop Date Active metformin 500 mg tablet RxNorm: 605567 1 Tablet(s) Oral every day 2019 Inactive diclofenac sodium 75 mg tablet,delayed release RxNorm: 526292 1 Tablet(s) PO BID 020 2021 Inactive This refill negates all other refills of this medication Sudafed 12 Hour 120 mg tablet,extended release RxNorm: 7723537 TAKE 1 TABLET BY MOUTH EVERY 12 HOURS NEEDED 020 2019 Inactive True Metrix Glucose Test Strip RxNorm: 1 Test Strips Miscellaneous every morning 020 2019 Inactive 100/container True Metrix Glucose Test Strip RxNorm: 1 Test Strips Miscellaneous QA 020 2019 Inactive 100/container loperamide 2 mg tablet RxNorm: 204608 1 Tablet(s) Oral as needed take one tablet after each loose stool, maximum of 8 tablets in 24 hours 2019 Inactive cetirizine 10 mg tablet RxNorm: 2712315 1 Tablet(s) PO daily 2019 Inactive loperamide 2 mg tablet RxNorm: 334025 1 Tablet(s) Oral as needed take one tablet after each loose stool, maximum of 8 tablets in 24 hours 2019 Inactive quetiapine 100 mg tablet RxNorm: 313136 1 Tablet(s) Oral every night at bedtime 2019 Inactive levothyroxine 50 mcg tablet RxNorm: 400975 1 Tablet(s) PO daily 2020 Inactive gabapentin 300 mg capsule RxNorm: 779187 1 Capsule(s) PO TID 2019 Inactive levothyroxine 50 mcg tablet RxNorm: 727860 1 Tablet(s) PO daily 2019 Inactive lisinopril 2.5 mg tablet RxNorm: 203806 1 Tablet(s) PO daily 2020 Inactive gabapentin 300 mg capsule RxNorm: 019069 1 Capsule(s) PO TID 2019 Inactive cetirizine 10 mg tablet RxNorm: 8188871 1 Tablet(s) PO daily 2019 Inactive Singulair 10 mg tablet RxNorm: 616757 1 Tablet(s) PO daily 2020 Inactive gentamicin 0.3 % eye drops RxNorm: 620375 1 Drop(s) ophthalmic (eye) four times a day 2019 Inactive gentamicin 0.3 % eye drops RxNorm: 639983 1 Drop(s) ophthalmic (eye) four times a day 020 2019 Inactive gentamicin 0.3 % eye drops RxNorm: 506860 1 Drop(s) ophthalmic (eye) four times a day 2019 Inactive hydrochlorothiazide 25 mg tablet RxNorm: 385563 1 Tablet(s) Oral every day 2019 Inactive Sudafed 12 Hour 120 mg tablet,extended release RxNorm: 0991209 TAKE (1) TABLET BY MOUTH EVERY 12 HOURS NEEDED 2019 Inactive loperamide 2 mg tablet RxNorm: 449750 1 Tablet(s) Oral as needed take one tablet after each loose stool, maximum of 8 tablets in 24 hours 020 2019 Inactive loperamide 2 mg tablet RxNorm: 659378 1 Tablet(s) Oral as needed take one tablet after each loose stool, maximum of 8 tablets in 24 hours 020 2019 Inactive atorvastatin 40 mg tablet RxNorm: 186737 1 Tablet(s) Oral every day 2020 Inactive quetiapine 100 mg tablet RxNorm: 612916 1 Tablet(s) Oral every night at bedtime 2019 Inactive sertraline 100 mg tablet RxNorm: 723930 1 Tablet(s) Oral 2019 Inactive omeprazole 20 mg capsule,delayed release RxNorm: 527785 1 Capsule(s) Oral every day 2019 Inactive amoxicillin 250 mg capsule RxNorm: 809630 1 Capsule(s) Oral three times a day 2019 Inactive multivitamin with iron-mineral tablet RxNorm: 1 Tablet(s) Oral every day 020 2021 Inactive cetirizine 10 mg tablet RxNorm: 5742947 1 Tablet(s) PO daily 2019 Inactive This refill negates all other refills of this medication. Please do not auto refill Singulair 10 mg tablet RxNorm: 119547 1 Tablet(s) PO daily 020 2019 Inactive This refill negates all other refills of this medication gabapentin 300 mg capsule RxNorm: 028935 1 Capsule(s) PO TID 2019 Inactive lisinopril 2.5 mg tablet RxNorm: 514562 1 Tablet(s) PO daily 2019 Inactive levothyroxine 50 mcg tablet RxNorm: 669093 1 Tablet(s) PO daily 2019 Inactive This refill negates all other refills of this medication fenugreek seed extract 500 mg capsule RxNorm: 1 Capsule(s) Oral three times a day 2021 Inactive hydrochlorothiazide 25 mg tablet RxNorm: 059263 1 Tablet(s) Oral every day 2019 Inactive Alcohol Prep Pads RxNorm: 303066 1 Patch TOP QAM 2020 Inactive loperamide 2 mg tablet RxNorm: 874960 1 Tablet(s) Oral as needed take one tablet after each loose stool not to exceed 8 tablets a day 2018 Inactive Calcium 600-D3 Plus (mag-zinc) 600 mg calcium-800 unit-50 mg tablet RxNorm: 1 Tablet(s) PO daily take an additonal tablet for itching. 2021 Inactive This refill negates all other refills of this medication TRUEplus Lancets 30 gauge RxNorm: 1 Lancets Miscellaneous QAM 019 2019 Inactive 100/box fenugreek seed extract 500 mg capsule RxNorm: 1 Capsule(s) Oral three times a day 2019 Inactive hydrochlorothiazide 25 mg tablet RxNorm: 473900 1 Tablet(s) Oral every day 2019 Inactive Sudafed 12 Hour 120 mg tablet,extended release RxNorm: 6803217 1 Tablet(s) Oral every 12 hours as needed 2018 Inactive omeprazole 20 mg capsule,delayed release RxNorm: 741255 1 Capsule(s) Oral every day 019 2019 Inactive Sudafed 12 Hour 120 mg tablet,extended release RxNorm: 9315151 1 Tablet(s) Oral every 12 hours as needed 2018 Inactive pantoprazole 40 mg tablet,delayed release RxNorm: 021971 1 Tablet(s) Oral every day 2018 Inactive discontinue any other H2Blkr. and PPI albuterol sulfate 2.5 mg/3 mL (0.083 %) solution for nebulization RxNorm: 749373 1 Vial Inhalation every four hours as needed as needed for dyspnea 2019 Inactive 60/box. This refill negates all other refills of this medication. Please do not fill early. Please do not auto refill. Symbicort 160 mcg-4.5 mcg/actuation HFA aerosol inhaler RxNorm: 8561064 2 Puff(s) INH BID No Stop Date Active Alcohol Prep Pads RxNorm: 182870 1 Patch TOP QAM 2019 Inactive Ventolin HFA 90 mcg/actuation aerosol inhaler RxNorm: 850614 2 Puff(s) INH QID 2019 Inactive Please do not fill early. Please do not auto refill. This refill negates all other refills of this medication True Metrix Glucose Test Strip RxNorm: 1 Test Strips Miscellaneous QAM 019 2019 Inactive 100/container atorvastatin 40 mg tablet RxNorm: 149810 1 Tablet(s) Oral every day 019 2019 Inactive levmetamfetamine 50 mg nasal inhaler RxNorm: 1 Unit(s) NASAL Q3-4H Do not use more than every 3 hours or 8 times/24hours 019 2021 Inactive Please do not auto refill. This refill negates all other refills of this medication buspirone 7.5 mg tablet RxNorm: 918456 1 Tablet(s) PO BID 019 2020 Inactive This refill negates all other refills of this medication hydrochlorothiazide 12.5 mg tablet RxNorm: 531640 1 Tablet(s) PO QAM 019 2019 Inactive Ventolin HFA 90 mcg/actuation aerosol inhaler RxNorm: 541189 2 Puff(s) INH QID 019 2018 Inactive Please do not fill early. Please do not auto refill. This refill negates all other refills of this medication Singulair 10 mg tablet RxNorm: 000496 1 Tablet(s) PO daily 019 2019 Inactive This refill negates all other refills of this medication cetirizine 10 mg tablet RxNorm: 9451000 1 Tablet(s) PO daily 019 2019 Inactive This refill negates all other refills of this medication. Please do not auto refill levothyroxine 50 mcg tablet RxNorm: 302384 1 Tablet(s) PO daily 019 2019 Inactive This refill negates all other refills of this medication diclofenac sodium 75 mg tablet,delayed release RxNorm: 163915 1 Tablet(s) PO BID 019 2019 Inactive This refill negates all other refills of this medication ranitidine 150 mg tablet RxNorm: 084252 1 Tablet(s) PO BID 019 2018 Inactive This refill negates all other refills of this medication Calcium 600-D3 Plus (mag-zinc) 600 mg calcium-800 unit-50 mg tablet RxNorm: 1 Tablet(s) PO daily take an additonal tablet for itching. 019 2018 Inactive This refill negates all other refills of this medication albuterol sulfate 2.5 mg/3 mL (0.083 %) solution for nebulization RxNorm: 295943 1 Vial INH QID 019 2018 Inactive 60/box. This refill negates all other refills of this medication. Please do not fill early. Please do not auto refill. lisinopril 2.5 mg tablet RxNorm: 283218 1 Tablet(s) PO daily 019 2019 Inactive gabapentin 300 mg capsule RxNorm: 735880 1 Capsule(s) PO TID 019 2019 Inactive atorvastatin 20 mg tablet RxNorm: 370163 1 Tablet(s) PO QHS 019 2018 Inactive This refill negates all other refills of this medication TRUEplus Lancets 30 gauge RxNorm: 1 Lancets Miscellaneous QAM 019 2018 Inactive 100/box gabapentin 300 mg capsule RxNorm: 677822 1 Capsule(s) PO TID 2018 Inactive Flintstones Complete (iron) 18 mg iron chewable tablet RxNorm: 1 Tablet(s) PO daily 019 2021 Inactive This refill negates all other refills of this medication gabapentin 300 mg capsule RxNorm: 323175 1 Capsule(s) PO TID as needed 2018 Inactive True Metrix Glucose Test Strip RxNorm: 1 Test Strips Miscellaneous QAM 019 2018 Inactive 100/container Alcohol Prep Pads RxNorm: 143996 1 Patch TOP QAM 019 2018 Inactive TRUEplus Lancets 30 gauge RxNorm: 1 Lancets Miscellaneous QAM 019 2018 Inactive 100/box lisinopril 2.5 mg tablet RxNorm: 884353 1 Tablet(s) PO daily 019 2018 Inactive ranitidine 150 mg tablet RxNorm: 532598 1 Tablet(s) PO BID 019 2018 Inactive This refill negates all other refills of this medication albuterol sulfate 2.5 mg/3 mL (0.083 %) solution for nebulization RxNorm: 917107 1 Vial INH QID 019 2018 Inactive 60/box. This refill negates all [...] this medication gabapentin 300 mg capsule RxNorm: 081505 1 Capsule(s) PO TID as needed 019 2018 Inactive atorvastatin 20 mg tablet RxNorm: 468252 1 Tablet(s) PO QHS 019 2018 Inactive This refill negates all other refills of this medication trazodone 50 mg tablet RxNorm: 262335 1 Tablet(s) PO QHS 019 2018 Inactive This refill negates all other refills of this medication Ventolin HFA 90 mcg/actuation aerosol inhaler RxNorm: 285002 2 Puff(s) INH QID 019 2018 Inactive Please do not fill early. Please do not auto refill. This refill negates all other refills of this medication Calcium 600-D3 Plus 600 mg calcium-800 unit-50 mg tablet RxNorm: 1 Tablet(s) PO daily take an additonal tablet for itching. 019 2018 Inactive This refill negates all other refills of this medication Singulair 10 mg tablet RxNorm: 304058 1 Tablet(s) PO daily 019 2018 Inactive This refill negates all other refills of this medication buspirone 7.5 mg tablet RxNorm: 569152 1 Tablet(s) PO BID 019 2018 Inactive This refill negates all other refills of this medication diclofenac sodium 75 mg tablet,delayed release RxNorm: 653206 1 Tablet(s) PO BID 019 2018 Inactive This refill negates all other refills of this medication hydrochlorothiazide 12.5 mg tablet RxNorm: 271708 1 Tablet(s) PO QAM 019 2018 Inactive metoprolol succinate ER 50 mg tablet,extended release 24 hr RxNorm: 058811 1 Tablet(s) PO daily 019 2018 Inactive This refill negates all other refills of this medication levothyroxine 50 mcg tablet RxNorm: 019858 1 Tablet(s) PO daily 019 2018 Inactive This refill negates all other refills of this medication cetirizine 10 mg tablet RxNorm: 5300763 1 Tablet(s) PO daily 019 2018 Inactive This refill negates all other refills of this medication. Please do not auto refill Flintstones Complete (iron) 18 mg iron chewable tablet RxNorm: 1 Tablet(s) PO daily 019 2018 Inactive This refill negates all other refills of this medication buspirone 7.5 mg tablet RxNorm: 852193 1 Tablet(s) PO BID 019 2018 Inactive cetirizine 10 mg tablet RxNorm: 3278240 1 Tablet(s) PO daily 2018 Inactive Guaiasorb DM 10 mg-100 mg/5 mL oral liquid RxNorm: 118870 10 Milliliter(s) PO As needed every 4 hr 2018 Inactive Vicks Vaporub 4.7 %-1.2 %-2.6 % topical ointment RxNorm: 5383224 1 Application TOP TID 2018 Inactive levmetamfetamine 50 mg nasal inhaler RxNorm: 1 Unit(s) NASAL Q3-4H 2017 Inactive sertraline 50 mg tablet RxNorm: 827748 1 Tablet(s) PO daily 2018 Inactive Please note dose trazodone 50 mg tablet RxNorm: 798654 1 Tablet(s) PO QHS 018 2018 Inactive sertraline 50 mg tablet RxNorm: 788367 1 Tablet(s) PO daily 018 2017 Inactive amoxicillin 500 mg tablet RxNorm: 944696 1 Tablet(s) PO Q12H 2017 Inactive albuterol sulfate 2.5 mg/3 mL (0.083 %) solution for nebulization RxNorm: 648395 1 Vial INH QID 2018 Inactive 60/box. Please do not fill early. Please do not auto refill. Prozac 10 mg capsule RxNorm: 415995 1 Capsule(s) PO daily 018 2017 Inactive buspirone 7.5 mg tablet RxNorm: 343193 1 Tablet(s) PO BID 018 2018 Inactive gabapentin 300 mg capsule RxNorm: 680845 1 Capsule(s) PO TID as needed 2018 Inactive hydrochlorothiazide 12.5 mg tablet RxNorm: 265778 1 Tablet(s) PO QAM 018 2018 Inactive ranitidine 150 mg tablet RxNorm: 150790 1 Tablet(s) PO BID 2018 Inactive Macrobid 100 mg capsule RxNorm: 728101 1 Capsule(s) PO Q12H 018 2017 Inactive Singulair 10 mg tablet RxNorm: 256695 1 Tablet(s) PO daily 018 2018 Inactive Ventolin HFA 90 mcg/actuation aerosol inhaler RxNorm: 9879938 2 Puff(s) INH QID 018 2018 Inactive Singulair 10 mg tablet RxNorm: 413643 1 Tablet(s) PO daily 018 2017 Inactive buspirone 7.5 mg tablet RxNorm: 399618 1 Tablet(s) PO BID 018 2017 Inactive Prozac 10 mg capsule RxNorm: 082840 1 Capsule(s) PO daily 018 2017 Inactive Neilmed Pediatric Sinus Rinse Refill packet RxNorm: 1 Unit Dose NASAL PRN 018 2021 Inactive diclofenac sodium 75 mg tablet,delayed release RxNorm: 170183 1 Tablet(s) PO BID 018 2017 Inactive lisinopril 2.5 mg tablet RxNorm: 927220 1 Tablet(s) PO daily 018 2017 Inactive metoprolol succinate ER 50 mg tablet,extended release 24 hr RxNorm: 807270 1 Tablet(s) PO daily 018 2017 Inactive levothyroxine 50 mcg tablet RxNorm: 832439 1 Tablet(s) PO daily 018 2017 Inactive TRUEplus Lancets 30 gauge RxNorm: 1 Lancets Miscellaneous QAM 018 2017 Inactive 100/box Ventolin HFA 90 mcg/actuation aerosol inhaler RxNorm: 948483 2 Puff(s) INH QID 018 2017 Inactive Aleve 220 mg capsule RxNorm: 1656874 1 Capsule(s) PO BID 018 2018 Inactive ranitidine 150 mg tablet RxNorm: 833731 1 Tablet(s) PO BID 018 2017 Inactive gabapentin 300 mg capsule RxNorm: 887841 1 Capsule(s) PO TID as needed 018 2017 Inactive atorvastatin 20 mg tablet RxNorm: 000226 1 Tablet(s) PO QHS 018 2017 Inactive True Metrix Glucose Test Strip RxNorm: 1 Test Strips Miscellaneous QAM 018 2017 Inactive 50/container Calcium 600-D3 Plus 600 mg calcium-800 unit-50 mg tablet RxNorm: 1 Tablet(s) PO daily take an additonal tablet for itching. 018 2017 Inactive hydrochlorothiazide 12.5 mg tablet RxNorm: 118713 1 Tablet(s) PO QAM 018 2017 Inactive Flintstones Complete (iron) 18 mg iron chewable tablet RxNorm: 1 Tablet(s) PO daily 018 2017 Inactive d-mannose oral powder RxNorm: PO 018 2021 Inactive True Metrix Glucose Meter RxNorm: miscellaneous 019 2018 Inactive sertraline 50 mg tablet RxNorm: 171803 1 Tablet(s) PO daily 020 2019 Inactive loperamide 2 mg tablet RxNorm: 033641 oral 12/30/11 Inactive Symbicort 160 mcg-4.5 mcg/actuation HFA aerosol inhaler RxNorm: 9282486 2 Puff(s) INH BID 2018 Inactive Medication Administered No Medication Administered data Procedures Procedure Codes Date Patient Health Questionnaire CPT-4: DPHQ 01/2022 Frailty Screening CPT-4: SFD 05/20/2021 Hypertension CPT-4: HTN 04/01/2021 Tobacco Assessment/Screening CPT-4: TCA 08/2021 Patient Health Questionnaire CPT-4: DPHQ 08/2021 Mini Mental State Exam CPT-4: DMMA Annual Wellness Visit (Subsequent Visit) CPT-4: G0439 01/13/2021 Advanced Care Planning CPT-4: VACP Fall Risk [facility]: 53309714 4 CPT-4: DFRA01/13/2021emmes Fany AssessmentCPT-4: DSWA12/17/2020Urinalysis, dip stickCPT-4: 135591309/24/2020Patient Health QuestionnaireCPT-4: DPHQ 08/19/2020ElectrocardiogramCPT-4: 154391505/14/2020Tobacco Assessment/Screening CPT-4: TCA01/01/2020Fall Risk AssessmentSNOMED CT: 811729064 CPT-4: DFRA01/01/2020Functional AssessmentCPT-4: DFA01/01/2020Semmes Fany AssessmentCPT-4: DSWA11/28/2019Patient Health QuestionnaireCPT-4: DPHQ11/28/2019 Dolliver Fany AssessmentCPT-4: DSWA10/17/2019HypertensionCPT-4: HTN10/17/[address]: 041641639 CPT-4: DFRA09/19/2019Functional AssessmentCPT-4: DFA111/20/2018Urinalysis, dip stickCPT-4: 6974267Tobacco Assessment/ScreeningCPT-4: TCA05/24/2019 Patient Health QuestionnaireCPT-4: DPHQ05/24/2019AHA/REBECCA Classification AssessmentCPT-4: DAHA04/25/2019Controlled Substance ReportCPT-4: [id number] Urinalysis, dip stickCPT-4: [id number], dip stickCPT-4: 33596 03/28/20192851D5H-XpvulbqulsyxwghZBN-6: 32766WesckrgM8W-KysennrametsdhoDNO-2: 72403 MvgfufhB9A-OiddsggjfmykhwoLKC-7: 18124IttfckgO9M-FswequfetsohrifZLS-6: 15465 JytqvyxT9H-XkuovsppvlwmrjpLMW-0: 42377AikeykkW5Y-IvasdnrijfiveaqPHP-5: 90600 TervsnkD6I-CfbdtbomnirfavwBII-1: 29482OcrsvbjF2N-JmoruggonxdqybeCXN-8: [address]: [id number] CPT-4: [id number] Reason For Visit No Reason For Visit data Plan of Care Planned Activity Notes Codes Status Date Referral: Pending Gynecology Referral Informatio n Referral ProcessedReferral: Pending Pulmonology Referral InformationReferralProcessed Referral: Pending Psychiatry Referral InformationReferralInitiatedReferral: Pending Respiratory Services Referral InformationReferralInitiatedReferral: Pending Ophthalmology Referral InformationReferralInitiatedReferral: [facility] WPtel: [address] [place], [place] [id number] USWriter placed a call out to the patient to notify her that it has been recommended that she be seenby 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 Patient agreed to be seen, does not have a provider of choice and no transportationissues. Pleat Patternmaker faxed referral and clinical notes to [facility] in [place], [place] near the patient's [...] seen and prefers a provider in the [place] or [place] area. Pleat Patternmaker placed a call out to everyone listed in the area and the only location that was able to accept the patient's insurance was [address] [id number] and spoke with Maylin. Maylin asked that the patient's referral, face sheet and visit notes be faxed to . Pleat Patternmaker faxed over requested documents. Patient appointment confirmation letter generated and mailed to her home address. Patient to call to schedule an appointment.ProcessedReferral: [facility] WPtel: [address] [facility] [address] [place], [place] [id number] USPatient notified that it has been advised that she be seen by Neurology. Patient agreed to be seen and prefers to be seen by a provider in the [place], [place] area. Patient denies any concerns with transportation, and prefers to schedule her own appointment. Pleat Patternmaker placed a call out to [facility] and spoke with Neeraj P: who confirmed that their office is able to acceptnew patients and the patient's insurance. After confirming the providers fax number, mortgage loan underwriter faxed over the patient's referral, [...]
--- OUTSIDE RECORDS SUMMARY | 2021-12-02 20:00 | XMS_ITS | CCD ---
Author Name Korey BOWMAN, Dr Jensen Address [address] [place] [address] Phone Organization [facility] Phone Care Team Providers Care Certified Health Education Specialist Name Role Phone Palomo GLASSWARE FINISHER, Anna Primary Care Provider Unav ailable Unavailable Chronic Care Management Unavaila ble Summary Purpose DataExchange Insurance Providers Payer name Policy type / Coverage type Covered constitution party ID Effective Begin Date Effective End Date [employer] [facility] [id number] Unknown Unknown Family history Mother Diagnosis Age [...] 05/31/2018 Education level Unknown Some High School 10th05/31/20186604AbatlztstmYvenfbwSvbfpqwhqr69/29/2018Tobacco historySNOMED CT: [id number] never smoked or chewed srasbvw6005/31/2018Alcohol historySNOMED CT: 262080203Llcdn drinks rawpwds0005/31/2018Has the patient ever used illegal drugs? UnknownHas never used illegal drugs05/31/2018DNR Order/ Advanced Directive UnknownFull Code05/31/2018 Allergies, Adverse Reactions, Alerts Substance Reaction Codes Entered Date Inactivated Date Status OxyContin itch, RxNorm: 288406 01/13/2021 No Inactive Da te Active *No known food allergies Msyucag3009/06/2018No Inactive DateActiveMethylprednisolonehivesRxNorm: 6902 09/06/2018No Inactive DateActive Problems Condition Codes Effective Dates Condition St atus Adult BMI 50.0-59.9 kg/sq m ICD-10: Z68. 43 ICD-9: V85.4308ActiveAllergic rhinitisICD-10: J30.9 ICD-9: 477.903/2ActiveHyperlipidemia, mixedICD-10: E78.2 ICD-9: 272.203/2ActiveHypertensionICD-10: I10 ICD-9: 401.903/2ActiveHypertensive heart diseaseICD-10: I11.9 ICD-9: 402.9003/2ActiveObstructive sleep apnea (adult) (pediatric)ICD-10: G47.33 ICD-9: 327.2309ActiveType 2 diabetes mellitus with peripheral neuropathy ICD-10: E11.42 ICD-9: 250.6002ActiveVitamin D deficiencyICD-10: E55.9 ICD-9: 268.903/2ActiveHypertensive heart disease with heart failureICD-10: I11.0 ICD-9: 402.9107Resolved(Z00.01-V70.0) Encounter for general adult medical examination with abnormal findingsICD-10: Z00.01 ICD-9: V70.004/1Resolved(Z12.11-V76.51) Encounter for screening for malignant neoplasm of colonICD-10: Z12.11 ICD-9: V76.5107/Resolved(Z12.31-V76.12) Encounter for screening mammogram for malignant neoplasm of breastICD-10: Z12.31 ICD-9: V76.1207/Resolved(Z12.4-V76.2) Encounter for screening for malignant neoplasm of cervixICD-10: Z12.4 ICD-9: V76.Resolved(Z13.31-V79.0) Encounter for screening for depressionICD-10: Z13.31 ICD-9: V79.004/1ResolvedAnorexiaICD-10: R63.0 ICD-9: 783.003/1ResolvedBlisterICD-10: T14.8XXA ICD-9: 919.206esolvedChronic kidney disease, stage 2 (mild)ICD-10: N18.2 ICD-9: 585.201esolvedCOVID-19 virus RNA test result positive at limit of detectionICD-10: U07.1 ICD-9: 079.8909/esolvedDiarrheaICD-10: R19.7 ICD-9: 787.9111/esolvedDyspnea, unspecifiedICD-10: R06.00 ICD-9: 786.0905ResolvedElevated liver enzymesICD-10: R74.8 ICD-9: 790.504esolvedEncounter for screening for tobacco useICD-10: Z01.89 ICD-9: V72.8503ResolvedEncounter for screening, unspecifiedICD-10: Z13.9 ICD-9: V82.912ResolvedFamily history of seizuresICD-10: Z84.89 ICD-9: V19.807/1ResolvedHyperlipidemia, unspecifiedICD-10: E78.5 ICD-9: 272.408ResolvedLong term (current) use of non-steroidal anti- inflammatories (NSAID)ICD-10: Z79.1 ICD-9: V58.6409ResolvedPatient Not SeenICD-10: UXZ.01 ICD-9: XZ0.107ResolvedPatient not seenICD-10: UXZ.01 ICD-9: UXZ.0112/1ResolvedUpper respiratory infectionICD-10: J06.9 ICD-9: 465.908esolvedSyncope and collapseICD-10: R55 ICD-9: 780.ActiveGERD (gastroesophageal reflux disease)ICD-10: K21.9 ICD-9: 530.8112ActiveAdjustment disorder with mixed anxiety and depressed moodICD-10: F43.23 ICD-9: 309.2812/01/2018ActivePost-traumatic stress disorder, unspecifiedICD-10: F43.10 ICD-9: 309.8112ActiveHistory of bladder surgeryICD-10: Z98.890 ICD-9: V45.89041ActiveUrinary retention with incomplete bladder emptying ICD-10: R33.9 ICD-9: 788.21041ActiveEncounter for immunizationICD-10: Z23 ICD-9: V04.8109/06/2020InactiveApnea, not elsewhere classifiedICD-10: R06.81 ICD-9: 786.0305/10/2018InactiveChest pain, unspecifiedICD-10: R07.9 ICD-9: 786.5002InactiveChronic kidney disease, unspecifiedICD-10: N18.9 ICD-9: 585.909/InactiveEncounter for immunizationICD-10: Z23 ICD-9: V03.907/InactiveEncounter for preprocedural cardiovascular examinationICD-10: Z01.810 ICD-9: V72.8106/InactiveHeadacheICD-10: R51 ICD-9: 784.001/10/2018InactiveOther regional intermodal truck driver (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ICD-10: Z79.899 ICD-9: V58.6907/InactiveType 2 diabetes mellitus without complications ICD-10: E11.9 ICD-9: 250.0001/10/2018InactiveWheezingICD-10: R06.2 ICD-9: 786.0711/03/2018InactiveAbnormal urine findingICD-10: R82.90 ICD-9: 791.912/ResolvedAbrasion of toeICD-10: S90.416A ICD-9: 917.005ResolvedPink eyeICD-10: H10.029 ICD-9: 372.0303/ResolvedRight wrist painICD-10: M25.531 ICD-9: 719.4308ResolvedSinusitisICD-10: J32.9 ICD-9: 473.902/02/2020ResolvedSuperficial burn of multiple sites of right hand, subsequent encounterICD-10: T23.191D ICD-9: V58.8902/1ResolvedUrinary tract infectionICD-10: N39.0 ICD-9: 599.012ResolvedPolyneuropathy, unspecifiedICD-10: G62.9 ICD-9: 356.908/ActiveHypothyroidism, unspecifiedICD-10: E03.9 ICD-9: 244.912ActiveFecal incontinenceICD-10: R15.9 ICD-9: 787.6003ActiveMixed incontinenceICD-10: N39.46 ICD-9: 788.3308/ActiveAsthmaICD-10: J45.909 ICD-9: 493.9011ActiveAbnormal electrocardiogram [ECG] [EKG]ICD-10: R94.31 ICD-9: 794.3108ActiveEdema, unspecifiedICD-10: R60.9 ICD-9: 782.310Active Medications Medication Codes Instructions Start Date Stop Date Status Fill Instructions cholecalciferol (vitamin D3) 50 mcg (2,000 unit) tablet RxNorm: 791207 Take 1 Tablet(s) Oral every day 022 2022 Inactive Myrbetriq 50 mg tablet,extended release RxNorm: 0905747 1 Tablet(s) Oral every day 022 No Stop Date Active Ozempic 0.25 mg or 0.5 mg (2 mg/1.5 mL) subcutaneous pen injector RxNorm: 5688610 inject 0.5 milligrams subcutaneously every week 022 2021 Inactive Ozempic 0.25 mg or 0.5 mg (2 mg/1.5 mL) subcutaneous pen injector RxNorm: 0771099 Take 0.5 Capsule(s) Injection once a week 2021 Inactive omeprazole 20 mg capsule,delayed release RxNorm: 826155 Take 1 Capsule(s) Oral every evening 2020 Inactive Ozempic 0.25 mg or 0.5 mg (2 mg/1.5 mL) subcutaneous pen injector RxNorm: 2053641 Take 0.25 Milligram(s) Subcutaneous once a week 2021 Inactive Easy Touch Alcohol Prep Pads RxNorm: 930615 USE DIRECTED EACH MORNING 2021 Inactive Probiotic 10 billion cell capsule RxNorm: 8500819 Take 1 Capsule(s) Oral every day 2021 Inactive levothyroxine 50 mcg tablet RxNorm: 169564 Take 1 Tablet(s) Oral every day 2020 Inactive Acid Brazing Machine Tender (famotidine) 20 mg tablet RxNorm: 143487 Take 1 Tablet(s) Oral every morning 2020 Inactive Heartburn Relief (famotidine) 10 mg tablet RxNorm: 702641 Take 1 Tablet(s) Oral QAM 021 2020 Inactive levothyroxine 50 mcg tablet RxNorm: 007137 Take 1 Tablet(s) Oral QD 021 2020 Inactive Singulair 10 mg tablet RxNorm: 386353 TAKE (1) TABLET BY MOUTH DAILY 2020 Inactive metformin 1,000 mg tablet RxNorm: 739686 1 Tablet(s) Oral two times a day 2021 Inactive lisinopril 2.5 mg tablet RxNorm: 732280 Take 1 Tablet(s) Oral every day 021 2020 Inactive hydrochlorothiazide 25 mg tablet RxNorm: 910194 Take 1 Tablet(s) Oral every day 021 2020 Inactive ondansetron 4 mg disintegrating tablet RxNorm: 476472 1 Tablet(s) Oral two times a day 021 2020 Inactive Sudafed 12 Hour 120 mg tablet,extended release RxNorm: 8875983 TAKE 1 TABLET BY MOUTH EVERY 12 HOURS NEEDED 021 2021 Inactive Heartburn Relief (famotidine) 10 mg tablet RxNorm: 698333 Take 1 Tablet(s) Oral every morning 021 2020 Inactive omeprazole 20 mg capsule,delayed release RxNorm: 401112 1 Capsule(s) Oral every evening 021 2020 Inactive sertraline 100 mg tablet RxNorm: 268442 2 Tablet(s) Oral every day 021 2020 Inactive levothyroxine 50 mcg tablet RxNorm: 457094 TAKE (1) TABLET BY MOUTH DAILY 021 2020 Inactive metformin 500 mg tablet RxNorm: 915239 1 Tablet(s) Oral two times a day take with 500mg to equal 1000mg 021 2020 Inactive gabapentin 300 mg capsule RxNorm: 108590 TAKE 1 CAPSULE BY MOUTH THREE TIMES A DAY 021 2020 Inactive lisinopril 2.5 mg tablet RxNorm: 107681 TAKE 1 TABLET BY MOUTH DAILY 2020 Inactive gabapentin 300 mg capsule RxNorm: 500657 TAKE 1 CAPSULE BY MOUTH THREE TIMES A DAY 021 2020 Inactive Singulair 10 mg tablet RxNorm: 589523 TAKE (1) TABLET BY MOUTH DAILY 021 2020 Inactive metformin 1,000 mg tablet RxNorm: 032718 1 Tablet(s) Oral two times a day 021 2020 Inactive atorvastatin 40 mg tablet RxNorm: 376719 1 Tablet(s) Oral every day 021 2020 Inactive omeprazole 20 mg capsule,delayed release RxNorm: 684473 1 Capsule(s) Oral every evening 021 2020 Inactive famotidine 10 mg tablet RxNorm: 707591 1 Tablet(s) Oral every morning 021 2020 Inactive Alcohol Prep Pads RxNorm: 907514 USE EACH MORNING 2020 Inactive omeprazole 20 mg capsule,delayed release RxNorm: 515287 1 Capsule(s) Oral two times a day 2021 Inactive omeprazole 20 mg capsule,delayed release RxNorm: 649512 TAKE 1 CAPSULE BY MOUTH EVERY DAY 2021 Inactive Macrobid 100 mg capsule RxNorm: 543787 1 Capsule(s) Oral every 12 hours with food 2020 Inactive omeprazole 20 mg capsule,delayed release RxNorm: 338982 1 Capsule(s) Oral two times a day 2021 Inactive metformin 1,000 mg tablet RxNorm: 278898 1 Tablet(s) Oral two times a day 2020 Inactive start on September 11, 2020 metformin 500 mg tablet RxNorm: 097458 1 Tablet(s) Oral two times a day take with 500mg to equal 1000mg 2019 Inactive gabapentin 300 mg capsule RxNorm: 058699 TAKE 1 CAPSULE BY MOUTH THREE TIMES DAILY 2020 Inactive cetirizine 10 mg tablet RxNorm: 2961811 TAKE (1) TABLET BY MOUTH DAILY 2020 Inactive metformin 500 mg tablet RxNorm: 912483 1 Tablet(s) Oral two times a day 2019 Inactive loperamide 2 mg tablet RxNorm: 929105 1 Tablet(s) Oral as needed take one tablet after each loose stool, maximum of 8 tablets in 24 hours 2021 Inactive Sudafed 12 Hour 120 mg tablet,extended release RxNorm: 7644379 TAKE 1 TABLET BY MOUTH EVERY 12 HOURS NEEDED 2019 Inactive hydrochlorothiazide 25 mg tablet RxNorm: 643574 TAKE (1) TABLET BY MOUTH EVERY DAY 2019 Inactive omeprazole 20 mg capsule,delayed release RxNorm: 948442 TAKE 1 CAPSULE BY MOUTH EVERY DAY 2020 Inactive metformin 500 mg tablet RxNorm: 200169 1 Tablet(s) Oral every day 2019 Inactive True Metrix Glucose Test Strip RxNorm: 1 Test Strips Miscellaneous two times a day as needed No Stop Date Active metformin 500 mg tablet RxNorm: 137172 1 Tablet(s) Oral every day 2019 Inactive diclofenac sodium 75 mg tablet,delayed release RxNorm: 381966 1 Tablet(s) PO BID 2021 Inactive This refill negates all other refills of this medication Sudafed 12 Hour 120 mg tablet,extended release RxNorm: 7654684 TAKE 1 TABLET BY MOUTH EVERY 12 HOURS NEEDED 020 2019 Inactive True Metrix Glucose Test Strip RxNorm: 1 Test Strips Miscellaneous every morning 2019 Inactive 100/container True Metrix Glucose Test Strip RxNorm: 1 Test Strips Miscellaneous QAM 020 2019 Inactive 100/container loperamide 2 mg tablet RxNorm: 188018 1 Tablet(s) Oral as needed take one tablet after each loose stool, maximum of 8 tablets in 24 hours 020 2019 Inactive cetirizine 10 mg tablet RxNorm: 9293023 1 Tablet(s) PO daily 2019 Inactive loperamide 2 mg tablet RxNorm: 323551 1 Tablet(s) Oral as needed take one tablet after each loose stool, maximum of 8 tablets in 24 hours 020 2019 Inactive quetiapine 100 mg tablet RxNorm: 725108 1 Tablet(s) Oral every night at bedtime 2019 Inactive levothyroxine 50 mcg tablet RxNorm: 958563 1 Tablet(s) PO daily 020 2020 Inactive gabapentin 300 mg capsule RxNorm: 130238 1 Capsule(s) PO TID 020 2019 Inactive levothyroxine 50 mcg tablet RxNorm: 551844 1 Tablet(s) PO daily 020 2019 Inactive lisinopril 2.5 mg tablet RxNorm: 067717 1 Tablet(s) PO daily 2020 Inactive gabapentin 300 mg capsule RxNorm: 856338 1 Capsule(s) PO TID 2019 Inactive cetirizine 10 mg tablet RxNorm: 5995479 1 Tablet(s) PO daily 2019 Inactive Singulair 10 mg tablet RxNorm: 236206 1 Tablet(s) PO daily 2020 Inactive gentamicin 0.3 % eye drops RxNorm: 604083 1 Drop(s) ophthalmic (eye) four times a day 2019 Inactive gentamicin 0.3 % eye drops RxNorm: 518742 1 Drop(s) ophthalmic (eye) four times a day 2019 Inactive gentamicin 0.3 % eye drops RxNorm: 563353 1 Drop(s) ophthalmic (eye) four times a day 2019 Inactive hydrochlorothiazide 25 mg tablet RxNorm: 508466 1 Tablet(s) Oral every day 2019 Inactive Sudafed 12 Hour 120 mg tablet,extended release RxNorm: 0052444 TAKE (1) TABLET BY MOUTH EVERY 12 HOURS NEEDED 2019 Inactive loperamide 2 mg tablet RxNorm: 830219 1 Tablet(s) Oral as needed take one tablet after each loose stool, maximum of 8 tablets in 24 hours 2019 Inactive loperamide 2 mg tablet RxNorm: 588292 1 Tablet(s) Oral as needed take one tablet after each loose stool, maximum of 8 tablets in 24 hours 020 2019 Inactive atorvastatin 40 mg tablet RxNorm: 028491 1 Tablet(s) Oral every day 2020 Inactive quetiapine 100 mg tablet RxNorm: 053789 1 Tablet(s) Oral every night at bedtime 2019 Inactive sertraline 100 mg tablet RxNorm: 970820 1 Tablet(s) Oral 020 2019 Inactive omeprazole 20 mg capsule,delayed release RxNorm: 164009 1 Capsule(s) Oral every day 020 2019 Inactive amoxicillin 250 mg capsule RxNorm: 716199 1 Capsule(s) Oral three times a day 2019 Inactive multivitamin with iron-mineral tablet RxNorm: 1 Tablet(s) Oral every day 020 2021 Inactive cetirizine 10 mg tablet RxNorm: 4855312 1 Tablet(s) PO daily 2019 Inactive This refill negates all other refills of this medication. Please do not auto refill Singulair 10 mg tablet RxNorm: 894269 1 Tablet(s) PO daily 2019 Inactive This refill negates all other refills of this medication gabapentin 300 mg capsule RxNorm: 651439 1 Capsule(s) PO TID 2019 Inactive lisinopril 2.5 mg tablet RxNorm: 154879 1 Tablet(s) PO daily 2019 Inactive levothyroxine 50 mcg tablet RxNorm: 988966 1 Tablet(s) PO daily 2019 Inactive This refill negates all other refills of this medication hydrochlorothiazide 25 mg tablet RxNorm: 973757 1 Tablet(s) Oral every day 2019 Inactive fenugreek seed extract 500 mg capsule RxNorm: 1 Capsule(s) Oral three times a day 020 2021 Inactive Alcohol Prep Pads RxNorm: 815567 1 Patch TOP QAM 2020 Inactive loperamide 2 mg tablet RxNorm: 067221 1 Tablet(s) Oral as needed take one [...] 2019 Inactive hydrochlorothiazide 25 mg tablet RxNorm: 999777 1 Tablet(s) Oral every day 019 2019 Inactive Sudafed 12 Hour 120 mg tablet,extended release RxNorm: 5932800 1 Tablet(s) Oral every 12 hours as needed 019 2018 Inactive omeprazole 20 mg capsule,delayed release RxNorm: 380518 1 Capsule(s) Oral every day 2019 Inactive Sudafed 12 Hour 120 mg tablet,extended release RxNorm: 3633486 1 Tablet(s) Oral every 12 hours as needed 2018 Inactive pantoprazole 40 mg tablet,delayed release RxNorm: 172788 1 Tablet(s) Oral every day 2018 Inactive discontinue any other H2Blkr. and PPI albuterol sulfate 2.5 mg/3 mL (0.083 %) solution for nebulization RxNorm: 401824 1 Vial Inhalation every four hours as needed as needed for dyspnea 2019 Inactive 60/box. This refill negates all other refills of this medication. Please do not fill early. Please do not auto refill. Symbicort 160 mcg-4.5 mcg/actuation HFA aerosol inhaler RxNorm: 6119141 2 Puff(s) INH BID No Stop Date Active Alcohol Prep Pads RxNorm: 580725 1 Patch TOP QAM 019 2019 Inactive Ventolin HFA 90 mcg/actuation aerosol inhaler RxNorm: 259000 2 Puff(s) INH QID 2019 Inactive Please do not fill early. Please do not auto refill. This refill negates all other refills of this medication True Metrix Glucose Test Strip RxNorm: 1 Test Strips Miscellaneous QAM 019 2019 Inactive 100/container atorvastatin 40 mg tablet RxNorm: 440674 1 Tablet(s) Oral every day 019 2019 Inactive buspirone 7.5 mg tablet RxNorm: 660185 1 Tablet(s) PO BID 019 2020 Inactive This refill negates all other refills of this medication hydrochlorothiazide 12.5 mg tablet RxNorm: 716075 1 Tablet(s) PO QAM 019 2019 Inactive levmetamfetamine 50 mg nasal inhaler RxNorm: 1 Unit(s) NASAL Q3-4H Do not use more than every 3 hours or 8 times/24hours 019 2021 Inactive Please do not auto refill. This refill negates all other refills of this medication Ventolin HFA 90 mcg/actuation aerosol inhaler RxNorm: 185320 2 Puff(s) INH QID 019 2018 Inactive Please do not fill early. Please do not auto refill. This refill negates all other refills of this medication Singulair 10 mg tablet RxNorm: 678325 1 Tablet(s) PO daily 019 2019 Inactive This refill negates all other refills of this medication cetirizine 10 mg tablet RxNorm: 6550389 1 Tablet(s) PO daily 019 2019 Inactive This refill negates all other refills of this medication. Please do not auto refill levothyroxine 50 mcg tablet RxNorm: 497485 1 Tablet(s) PO daily 019 2019 Inactive This refill negates all other refills of this medication diclofenac sodium 75 mg tablet,delayed release RxNorm: 049159 1 Tablet(s) PO BID 019 2019 Inactive This refill negates all other refills of this medication ranitidine 150 mg tablet RxNorm: 939528 1 Tablet(s) PO BID 019 2018 Inactive This refill negates all other refills of this medication Calcium 600-D3 Plus (mag-zinc) 600 mg calcium-800 unit-50 mg tablet RxNorm: 1 Tablet(s) PO daily take an additonal tablet for itching. 019 2018 Inactive This refill negates all other refills of this medication albuterol sulfate 2.5 mg/3 mL (0.083 %) solution for nebulization RxNorm: 500239 1 Vial INH QID 2018 Inactive 60/box. This refill negates all other refills of this medication. Please do not fill early. Please do not auto refill. lisinopril 2.5 mg tablet RxNorm: 520916 1 Tablet(s) PO daily 019 2019 Inactive gabapentin 300 mg capsule RxNorm: 852075 1 Capsule(s) PO TID 019 2019 Inactive atorvastatin 20 mg tablet RxNorm: 363955 1 Tablet(s) PO QHS 2018 Inactive This refill negates all other refills of this medication TRUEplus Lancets 30 gauge RxNorm: 1 Lancets Miscellaneous QAM 019 2018 Inactive 100/box gabapentin 300 mg capsule RxNorm: 490886 1 Capsule(s) PO TID 019 2018 Inactive Flintstones Complete (iron) 18 mg iron chewable tablet RxNorm: 1 Tablet(s) PO daily 019 2021 Inactive This refill negates all other refills of this medication gabapentin 300 mg capsule RxNorm: 071448 1 Capsule(s) PO TID as needed 019 2018 Inactive True Metrix Glucose Test Strip RxNorm: 1 Test Strips Miscellaneous QAM 019 2018 Inactive 100/container Alcohol Prep Pads RxNorm: 404549 1 Patch TOP QAM 019 2018 Inactive TRUEplus Lancets 30 gauge RxNorm: 1 Lancets Miscellaneous QAM 019 2018 Inactive 100/box lisinopril 2.5 mg tablet RxNorm: 169506 1 Tablet(s) PO daily 019 2018 Inactive ranitidine 150 mg tablet RxNorm: 082430 1 Tablet(s) PO BID 019 2018 Inactive This refill negates all other refills of this medication albuterol sulfate 2.5 mg/3 mL (0.083 %) solution for nebulization RxNorm: 094056 1 Vial INH QID 019 2018 Inactive [...] this medication gabapentin 300 mg capsule RxNorm: 495271 1 Capsule(s) PO TID as needed 019 2018 Inactive atorvastatin 20 mg tablet RxNorm: 897130 1 Tablet(s) PO QHS 019 2018 Inactive This refill negates all other refills of this medication trazodone 50 mg tablet RxNorm: 600282 1 Tablet(s) PO QHS 019 2018 Inactive This refill negates all other refills of this medication Ventolin HFA 90 mcg/actuation aerosol inhaler RxNorm: 834038 2 Puff(s) INH QID 019 2018 Inactive Please do not fill early. Please do not auto refill. This refill negates all other refills of this medication Calcium 600-D3 Plus 600 mg calcium-800 unit-50 mg tablet RxNorm: 1 Tablet(s) PO daily take an additonal tablet for itching. 019 2018 Inactive This refill negates all other refills of this medication Singulair 10 mg tablet RxNorm: 502028 1 Tablet(s) PO daily 019 2018 Inactive This refill negates all other refills of this medication buspirone 7.5 mg tablet RxNorm: 669802 1 Tablet(s) PO BID 019 2018 Inactive This refill negates all other refills of this medication diclofenac sodium 75 mg tablet,delayed release RxNorm: 101290 1 Tablet(s) PO BID 019 2018 Inactive This refill negates all other refills of this medication hydrochlorothiazide 12.5 mg tablet RxNorm: 309579 1 Tablet(s) PO QAM 019 2018 Inactive metoprolol succinate ER 50 mg tablet,extended release 24 hr RxNorm: 310461 1 Tablet(s) PO daily 019 2018 Inactive This refill negates all other refills of this medication levothyroxine 50 mcg tablet RxNorm: 665838 1 Tablet(s) PO daily 019 2018 Inactive This refill negates all other refills of this medication cetirizine 10 mg tablet RxNorm: 1003370 1 Tablet(s) PO daily 019 2018 Inactive This refill negates all other refills of this medication. Please do not auto refill Flintstones Complete (iron) 18 mg iron chewable tablet RxNorm: 1 Tablet(s) PO daily 019 2018 Inactive This refill negates all other refills of this medication buspirone 7.5 mg tablet RxNorm: 175078 1 Tablet(s) PO BID 019 2018 Inactive cetirizine 10 mg tablet RxNorm: 5441173 1 Tablet(s) PO daily 2018 Inactive Guaiasorb DM 10 mg-100 mg/5 mL oral liquid RxNorm: 826273 10 Milliliter(s) PO As needed every 4 hr 2018 Inactive Vicks Vaporub 4.7 %-1.2 %-2.6 % topical ointment RxNorm: 8840133 1 Application TOP TID 2018 Inactive levmetamfetamine 50 mg nasal inhaler RxNorm: 1 Unit(s) NASAL Q3-4H 2017 Inactive sertraline 50 mg tablet RxNorm: 902638 1 Tablet(s) PO daily 2018 Inactive Please note dose trazodone 50 mg tablet RxNorm: 240031 1 Tablet(s) PO QHS 2018 Inactive sertraline 50 mg tablet RxNorm: 797488 1 Tablet(s) PO daily 2017 Inactive amoxicillin 500 mg tablet RxNorm: 190314 1 Tablet(s) PO Q12H 2017 Inactive albuterol sulfate 2.5 mg/3 mL (0.083 %) solution for nebulization RxNorm: 005812 1 Vial INH QID 2018 Inactive 60/box. Please do not fill early. Please do not auto refill. Prozac 10 mg capsule RxNorm: 175511 1 Capsule(s) PO daily 2017 Inactive buspirone 7.5 mg tablet RxNorm: 627917 1 Tablet(s) PO BID 2018 Inactive gabapentin 300 mg capsule RxNorm: 246618 1 Capsule(s) PO TID as needed 2018 Inactive hydrochlorothiazide 12.5 mg tablet RxNorm: 559070 1 Tablet(s) PO QAM 2018 Inactive ranitidine 150 mg tablet RxNorm: 398604 1 Tablet(s) PO BID 2018 Inactive Macrobid 100 mg capsule RxNorm: 645484 1 Capsule(s) PO Q12H 018 2017 Inactive Singulair 10 mg tablet RxNorm: 437786 1 Tablet(s) PO daily 2018 Inactive Ventolin HFA 90 mcg/actuation aerosol inhaler RxNorm: 0617665 2 Puff(s) INH QID 018 2018 Inactive Singulair 10 mg tablet RxNorm: 721740 1 Tablet(s) PO daily 018 2017 Inactive buspirone 7.5 mg tablet RxNorm: 690386 1 Tablet(s) PO BID 018 2017 Inactive Prozac 10 mg capsule RxNorm: 042531 1 Capsule(s) PO daily 018 2017 Inactive diclofenac sodium 75 mg tablet,delayed release RxNorm: 193227 1 Tablet(s) PO BID 018 2017 Inactive lisinopril 2.5 mg tablet RxNorm: 944576 1 Tablet(s) PO daily 018 2017 Inactive Neilmed Pediatric Sinus Rinse Refill packet RxNorm: 1 Unit Dose NASAL PRN 018 2021 Inactive metoprolol succinate ER 50 mg tablet,extended release 24 hr RxNorm: 701873 1 Tablet(s) PO daily 018 2017 Inactive levothyroxine 50 mcg tablet RxNorm: 759926 1 Tablet(s) PO daily 018 2017 Inactive TRUEplus Lancets 30 gauge RxNorm: 1 Lancets Miscellaneous QAM 018 2017 Inactive 100/box Ventolin HFA 90 mcg/actuation aerosol inhaler RxNorm: 474673 2 Puff(s) INH QID 018 2017 Inactive Aleve 220 mg capsule RxNorm: 1277837 1 Capsule(s) PO BID 018 2018 Inactive ranitidine 150 mg tablet RxNorm: 526260 1 Tablet(s) PO BID 018 2017 Inactive gabapentin 300 mg capsule RxNorm: 343394 1 Capsule(s) PO TID as needed 018 2017 Inactive atorvastatin 20 mg tablet RxNorm: 115818 1 Tablet(s) PO QHS 018 2017 Inactive True Metrix Glucose Test Strip RxNorm: 1 Test Strips Miscellaneous QAM 018 2017 Inactive 50/container Calcium 600-D3 Plus 600 mg calcium-800 unit-50 mg tablet RxNorm: 1 Tablet(s) PO daily take an additonal tablet for itching. 018 2017 Inactive hydrochlorothiazide 12.5 mg tablet RxNorm: 952688 1 Tablet(s) PO QAM 018 2017 Inactive Flintstones Complete (iron) 18 mg iron chewable tablet RxNorm: 1 Tablet(s) PO daily 018 2017 Inactive True Metrix Glucose Meter RxNorm: miscellaneous 019 2018 Inactive sertraline 50 mg tablet RxNorm: 202790 1 Tablet(s) PO daily 020 2019 Inactive loperamide 2 mg tablet RxNorm: 007242 oral 019 2018 Inactive d-mannose oral powder RxNorm: PO 018 2021 Inactive Symbicort 160 mcg-4.5 mcg/actuation HFA aerosol inhaler RxNorm: 6826167 2 Puff(s) INH BID 019 2018 Inactive [...] VACP 1 Fall Risk Assessment SNOMED CT: 96242181 4 CPT-4: DFRA01/13/2021emmes Fany AssessmentCPT-4: DSWA12/17/2020Urinalysis, dip stickCPT-4: 872201909/24/2020Patient Health QuestionnaireCPT-4: DPHQ 08/19/2020ElectrocardiogramCPT-4: 1884153Tobacco Assessment/Screening CPT-4: TCA01/01/2020Fall Risk AssessmentSNOMED CT: 637312744 CPT-4: DFRA01/01/2020Functional AssessmentCPT-4: DFA01/01/2020Semmes Fany AssessmentCPT-4: DSWA11/28/2019Patient Health QuestionnaireCPT-4: DPHQ11/28/2019 [place] Fany AssessmentCPT-4: DSWA10/17/2019HypertensionCPT-4: HTN10/17/[address]: 848144760 CPT-4: DFRA09/19/2019Functional AssessmentCPT-4: DFA111/20/2018Urinalysis, dip stickCPT-4: 416825806/21/2019Tobacco Assessment/ScreeningCPT-4: TCA05/24/2019 Patient Health QuestionnaireCPT-4: DPHQ05/24/2019AHA/REBECCA Classification AssessmentCPT-4: DAHA04/25/2019Controlled Substance ReportCPT-4: CTRSU04/25/2019 Urinalysis, dip stickCPT-4: 454282603/28/2019Urinalysis, dip stickCPT-4: 63320 03/28/20197026H6D-UcsjstbyixgypcnWMQ-1: 30297VjzqigqG0W-YftbzcjxmpoqfasMSD-1: 44833 XxqdkcrE4H-QltlbjpatjizazmOTA-1: 28041LiucamsD6H-KjqzvrxbcfmwajnHHV-6: 04737 EppwavoQ6F-UdswletxpnxwijzAZS-7: 31953WabfireZ6M-AsvjhepsljhemrtTNU-6: 30655 WfxhkeaD7R-XvhxyytbjnhtwrqPTC-1: 22905MwwbnsvW0V-AcnpcijaekpoqtwXPG-6: [address]: 325470499 CPT-4: G15Joeetji Vital Signs Date Vital 12/03/2021 Blood Pressure 1: 118/76 Code: 8480-6 BMI: 54.1 Code: 42763-1 Heart Rate 1: 82 bpm Height: 4'11 Code: 8302-2 Respiratory Rate: 16 bpm SpO2: 98% Temperature: 36.4 (C) / 97.5 (F) Weight: 268 lbs Code: 72193-1 Reason For Visit Reason For Visit Effective Dates Notes hypertension 12/03/2021 diabetes mellitus 12/03/2021 Encounters Encounter Performer Location Location Address Codes Magdi e ([id number]) HOME VISIT JULIA HUFF Diagnosis: Hypertension[ICD10: I10] Diagnosis: Hypertensive heart disease[ICD10: I11.9] Diagnosis: Type 2 diabetes mellitus with peripheral neuropathy[ICD10: E11.42] Diagnosis: Adult BMI 50.0-59.9 kg/sq m[ICD10: Z68.43] Diagnosis: Vitamin D deficiency[ICD10: E55.9] Diagnosis: Hyperlipidemia, mixed[ICD10: E78.2]Mikey HarrisRaquel Irbu[address] [place] [address] 26879NNU-0: 4707591/12/2021 Plan of Care Planned Activity Notes Codes [...] min. < 89% SpO2 continue with [facility] Josh Simon MD E11.42 Type 2 diabetes mellitus with peripheral neuropathy, Z68.43 Adult BMI 50.0-59.9 kg/sq m glucose monitor 100s-120s - bid Ozempic 0.5mg per week, gabapentin 11/02/21 HgbA1C 5.6, GFR >100 continue with Kerrie Pandya OD at [facility] (06/30/21) encourage to continue with Dr. Gonzales DPM E78.2 Hyperlipidemia, mixed atorvastatin has been d/c'd due to elevated LFTs 11/02/21 LDL 181, triglyc. 193 - plan re-check with next blood draw Mediterranean eating plan provided G47.33 Obstructive sleep apnea (adult), J45.909 Asthma continue utilization of Symbicort, albuterolvia neb. or MDI q 4 hrs. prn dyspnea, CPAP use encouraged but doubt use discuss PFTs and recheck of Noct. Pulse. Ox continue with Bakery Associate Jose BOWMAN E03.9 Hypothyroidism continue levothyroxine 11/02/21 [...] mood continue taking sertraline, buspirone continue with [facility] [place] N39.46 Mixed incontinence, R33.9 Urinary retention with incomplete bladder emptying Z98.890-V45.89 History of bladder surgery Myrbetriq qd use of incontinence supplies 01/05/21 urinary stimulator implant - symptoms improved, urinating ~ 5 times per day continue with Urologist J30.9 Allergic rhinitis cetirizine, montelukast 12/03/2021atient Education: Patient Medication LjgirdeWsydffgxh24/03/2022 Patient Education: VwcqrssmLurhvskjz79/03/2022atient Education: Hypertension Xbyoyogdb97/03/2022atient Education: BwxezmnQjmzjjdda41/03/2022Care Plan: Specialty Diagnostic UiblsAtthkwv49/03/2022are Plan: Overnight Pulse oxOrdered 12/03/2021ppointment: Chivo Bishop WPtel: [phone] [id number]: Chivo Bishop WPtel: [phone] [place] [address] [id number]/ppointment: Chivo Bishop WPtel: [phone] [place] [address] USETV111/11/2020ppointment: Chivo Bishop WPtel: [address] [place] [address] USETV110/13/2020ppointment: Chivo Bishop WPtel: [address] [place] [address] USETV1ppointment: Chivo Bishop WPtel: [address] [place] [address] NRDJZP9906/10/2021ppointment: Anna Culver WPtel: [address] [place] [address] USETV06/02/2021ppointment: Chivo Bishop WPtel: [address] [place] [address] USETV05/20/2021ppointment: Anna Culver WPtel: [address] [place] [address] USETV04/28/2021ppointment: Chivo Bishop WPtel: [address] [place] [address] USETV04/15/2021ppointment: Anna Culver WPtel: [address] [place] [address] [id number]: Anna Culver WPtel: [phone] [place] [address] USETV03/24/2021ppointment: Anna Culver WPtel: [phone] [address] USETV06/ppointment: Anna Culver WPtel: [phone] [place] [address] [id number]: Chivo Bishop WPtel: [phone] [place] [address] [id number]: Anna Culver WPtel: [phone] [place] [address] USETV04ppointment: Anna Culver WPtel: [phone] [place] [address] [id number]: Chivo Bishop WPtel: [phone] [place] [address] USETV11/28/2020ppointment: Anna Culver WPtel: [address] [place] [address] USETV11/24/2020ppointment: Anna Culver WPtel: [address] [place] [address] [id number]: Anna Culver WPtel: [phone] [place] [address] [id number]: Anna Culver WPtel: [phone] [place] [address] USETV110/26/2019Appointment: Anna Culver WPtel: [phone] [place] [address] USETV110/19/2019Appointment: Anna Culver WPtel: [phone] [place] [address] USETV1Appointment: Anna Culver WPtel: [phone] [address] USETV10Appointment: Vinnie Giannaalex Cornejonicole: [address] [facility] [address] [id number]: Anna Culver WPtel: [phone] [place] [address] [id number]: Anna Culver WPtel: [phone] [place] [address] [place] [address] NNZ44936/09/2020Appointment: Anna Culver WPtel: [phone] [place] [address] [id number]: Anna Culver WPtel: [address] [place] [address] [id number]: Anna Culver WPtel: [phone] [place] [address] [id number]: Anna Culver WPtel: [phone] [place] [address] [id number]: Anna Culver WPtel: [phone] [place] [address] [id number]: Anna Culver WPtel: [phone] [place] [address] [id number]/Appointment: Anna Culver WPtel: [phone] [place] [address] [id number]: Anna Culver WPtel: [phone] [place] [address] [id number]/20/2018Appointment: Sudha Hernadez WPtel: [address] [facility] [address] [id number]: Sudha Hernadez WPtel: [address] [facility] b [id number]: Charlene Oropeza WPtel: [address] [facility] b [id number]: Bianca DelgadoPrqpupM01754/26/2019Appointment: Charlene Oropeza WPtel: [address] [facility] [id number]: Javy Rasta WPtel: [address] [facility] [id number]: Hasenthilricht, Rasta WPtel: [address] [facility] [id number]: Javy, Rasta WPtel: [address] [facility] b [id number]: Javy, Rasta WPtel: [address] [facility] b [id number]: Pending Gynecology Referral InformationReferral ProcessedReferral: Pending Pulmonology Referral InformationReferralProcessed Referral: Pending Psychiatry Referral InformationReferralInitiatedReferral: Pending Respiratory Services Referral InformationReferralInitiatedReferral: Pending Ophthalmology Referral InformationReferralInitiatedReferral: [facility] WPtel: [address] USWriter placed a call out to the patient to notify her that it has been recommended that she be seenby 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 Patient agreed to be seen, does not have a provider of choice and no transportationissues. [employer] Supervisor faxed referral and clinical notes to [facility] in [place], [place] near the patient's home. Patient to [...] seen and prefers a provider in the [place] or [place] area. [employer] Supervisor placed a call out to everyone listed in the area and the only location that was able to accept the patient's insurance was [address] [phone] and spoke with Maylin. Maylin asked that the patient's referral, face sheet and visit notes be faxed to . [employer] Supervisor faxed over requested documents. Patient appointment confirmation letter generated and mailed to her home address. Patient to call to schedule an appointment.ProcessedReferral: [facility] WPtel: [address] [place] [address] [place], [place] [id number] USPatient notified that it has been advised that she be seen by Neurology. Patient agreed to be seen and prefers to be seen by a provider in the [place], [place] area. Patient denies any concerns with transportation, and prefers to schedule her own appointment. [employer] Supervisor placed a [facility] out to [facility] [...] the determination of the stability of these diseaseswith the particular tests' results of primary interest noted following each diagnosis to which theypertain, as are additional tests which are currently being pursued. Also, the medications below arebeing continued as designated after consideration of whether an alternative treatment would be moreappropriate or whether a dosage change is indicated. The following plan is the culmination of today's visit recommendation of the patient's overall medical plan of care. I10 Essential (primary) hypertension, continue lisinopril, HCTZ; 07/02/20 Echo: EF 60%, mild conc. LVH; 05/14/20 EKG: NSR; disc. rechecking - 05/14/20 Noct. Pulse Ox.: 7 min. < 89% SpO2; continue with [facility] Josh Simon MD; E11.42 Type 2 diabetes mellitus with peripheral neuropathy, Z68.43 Adult BMI 50.0-59.9 kg/sq m glucose monitor 100s-120s - bid; Ozempic 0.5mg per week, gabapentin; 11/02/21 HgbA1C 5.6, GFR >100; continue with Kerrie Pandya OD at [facility] (06/30/21); encourage to continue with Dr. Gonzales [...] recheck of Noct. Pulse. Ox; continue with Bakery Associate Jose BOWMAN; E03.9 Hypothyroidism continue levothyroxine; 11/02/21 [...] mood continue taking sertraline, buspirone; continue with [facility] in [place]; N39.46 Mixed incontinence, R33.9 Urinary retention with incomplete bladder emptying; Z98.890-V45.89History of bladder surgery Myrbetriq qd; use of incontinence supplies; 01/05/21 urinary stimulator implant - symptoms improved, urinating ~ 5 times per day; continue with Urologist; J30.9 Allergic rhinitis cetirizine, montelukast; 12/03/2021 Medical Equipment No Medical Equipment data Advance Directives No Advance Directive data
--- OUTSIDE RECORDS SUMMARY | 2022-01-06 20:00 | XMS_ITS | CCD ---
Author Name Darrell Carrion Address [address] [place] [address] Phone Organization [facility] Phone Care Team Providers Care Wic Site Coordinator Name Role Phone Anna Culver NP Primary Care Provider Unav ailable Unavailable Chronic Care Management Unavaila ble Summary Purpose DataExchange Insurance Providers Payer name Policy type / Coverage type Covered democrat ID Effective Begin Date Effective End Date SUKI MAYO [id number] Unknown Unknown Family history Mother Diagnosis Age [...] 05/31/2018 Education level Unknown Some High School 10th05/31/20187671VtvqgwmwdwXgvookuPbljtzjkwj90/29/2018Tobacco historySNOMED CT: [id number] never smoked or chewed ipnapnq6605/31/2018Alcohol historySNOMED CT: 064964197Kleju drinks pambiui5305/31/2018Has the patient ever used illegal drugs? UnknownHas never used illegal drugs05/31/2018DNR Order/ Advanced Directive UnknownFull Code05/31/2018 Allergies, Adverse Reactions, Alerts Substance Reaction Codes Entered Date Inactivated Date Status OxyContin itch, RxNorm: 350317 01/13/2021 No Inactive Da te Active *No known food allergies Mncosuq2509/06/2018No Inactive DateActiveMethylprednisolonehivesRxNorm: 6902 09/06/2018No Inactive DateActive Problems Condition Codes Effective Dates Condition St atus Adjustment disorder with mixed anxiety a nd depressed mood ICD-10: F43.23 ICD-9: 309.2812/01/2018ActiveAsthmaICD-10: J45.909 ICD-9: 493.9011ActiveGERD (gastroesophageal reflux disease)ICD-10: K21.9 ICD-9: 530.8112ActiveType 2 diabetes mellitus with peripheral neuropathy ICD-10: E11.42 ICD-9: 250.6002ActiveEdema, unspecifiedICD-10: R60.9 ICD-9: 782.310/06/2018ActiveObstructive sleep apnea (adult) (pediatric)ICD-10: G47.33 ICD-9: 327.2309ActiveAdult BMI 50.0-59.9 kg/sq mICD-10: Z68.43 ICD-9: V85.4308ActiveAllergic rhinitisICD-10: J30.9 ICD-9: 477.903/2ActiveHyperlipidemia, mixedICD-10: E78.2 ICD-9: 272.203/2ActiveHypertensionICD-10: I10 ICD-9: 401.903/2ActiveHypertensive heart diseaseICD-10: I11.9 ICD-9: 402.9003/2ActiveVitamin D deficiencyICD-10: E55.9 ICD-9: 268.903/2ActiveHypertensive heart disease with heart failureICD-10: I11.0 ICD-9: 402.9107Resolved(Z00.01-V70.0) Encounter for general adult medical examination with abnormal findingsICD-10: Z00.01 ICD-9: V70.004/1Resolved(Z12.11-V76.51) Encounter for screening for malignant neoplasm of colonICD-10: Z12.11 ICD-9: V76.5107/Resolved(Z12.31-V76.12) Encounter for screening mammogram for malignant neoplasm of breastICD-10: Z12.31 ICD-9: V76.1207Resolved(Z12.4-V76.2) Encounter for screening for malignant neoplasm of cervixICD-10: Z12.4 ICD-9: V76.207/Resolved(Z13.31-V79.0) Encounter for screening for depressionICD-10: Z13.31 ICD-9: V79.004/1ResolvedAnorexiaICD-10: R63.0 ICD-9: 783.003/1ResolvedBlisterICD-10: T14.8XXA ICD-9: 919.206/1ResolvedChronic kidney disease, stage 2 (mild)ICD-10: N18.2 ICD-9: 585.1ResolvedCOVID-19 virus RNA test result positive at limit of detectionICD-10: U07.1 ICD-9: 079.8909/1ResolvedDiarrheaICD-10: R19.7 ICD-9: 787.9111/esolvedDyspnea, unspecifiedICD-10: R06.00 ICD-9: 786.0905/06/2019ResolvedElevated liver enzymesICD-10: R74.8 ICD-9: 790.504/esolvedEncounter for screening for tobacco useICD-10: Z01.89 ICD-9: V72.8503ResolvedEncounter for screening, unspecifiedICD-10: Z13.9 ICD-9: V82.912ResolvedFamily history of seizuresICD-10: Z84.89 ICD-9: V19.807/1ResolvedHyperlipidemia, unspecifiedICD-10: E78.5 ICD-9: 272.408ResolvedLong term (current) use of non-steroidal anti- inflammatories (NSAID)ICD-10: Z79.1 ICD-9: V58.6409ResolvedPatient Not SeenICD-10: UXZ.01 ICD-9: XZ0.107ResolvedPatient not seenICD-10: UXZ.01 ICD-9: UXZ.0112/1ResolvedUpper respiratory infectionICD-10: J06.9 ICD-9: 465.908/1ResolvedSyncope and collapseICD-10: R55 ICD-9: 780.203ActivePost-traumatic stress disorder, unspecifiedICD-10: F43.10 ICD-9: 309.8112ActiveHistory of bladder surgeryICD-10: Z98.890 ICD-9: V45.8904/1ActiveUrinary retention with incomplete bladder emptying ICD-10: R33.9 ICD-9: 788.2101ActiveEncounter for immunizationICD-10: Z23 ICD-9: V04.8109/06/2020InactiveApnea, not elsewhere classifiedICD-10: R06.81 ICD-9: 786.0305/10/2018InactiveChest pain, unspecifiedICD-10: R07.9 ICD-9: 786.5002/InactiveChronic kidney disease, unspecifiedICD-10: N18.9 ICD-9: 585.909/InactiveEncounter for immunizationICD-10: Z23 ICD-9: V03.907/InactiveEncounter for preprocedural cardiovascular examinationICD-10: Z01.810 ICD-9: V72.8106/InactiveHeadacheICD-10: R51 ICD-9: 784.001InactiveOther assisted (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ICD-10: Z79.899 ICD-9: V58.6907/InactiveType 2 diabetes mellitus without complications ICD-10: E11.9 ICD-9: 250.0001/10/2018InactiveWheezingICD-10: R06.2 ICD-9: 786.0711/03/2018InactiveAbnormal urine findingICD-10: R82.90 ICD-9: 791.912/ResolvedAbrasion of toeICD-10: S90.416A ICD-9: 917.005ResolvedPink eyeICD-10: H10.029 ICD-9: 372.0303/ResolvedRight wrist painICD-10: M25.531 ICD-9: 719.4308ResolvedSinusitisICD-10: J32.9 ICD-9: 473.902/02/2020ResolvedSuperficial burn of multiple sites of right hand, subsequent encounterICD-10: T23.191D ICD-9: V58.8902/1ResolvedUrinary tract infectionICD-10: N39.0 ICD-9: 599.012/ResolvedPolyneuropathy, unspecifiedICD-10: G62.9 ICD-9: 356.908/ActiveHypothyroidism, unspecifiedICD-10: E03.9 ICD-9: 244.912ActiveFecal incontinenceICD-10: R15.9 ICD-9: 787.6003ActiveMixed incontinenceICD-10: N39.46 ICD-9: 788.3308/ActiveAbnormal electrocardiogram [ECG] [EKG]ICD-10: R94.31 ICD-9: 794.3108Active Medications Medication Codes Instructions Start Date Stop Date Status Fill Instructions gabapentin 300 mg capsule RxNorm: 730959 Take 1 Capsule(s) Oral three times a day 022 2021 Inactive montelukast 10 mg tablet RxNorm: 829615 Take 1 Tablet(s) Oral every day 022 2021 Inactive cholecalciferol (vitamin D3) 50 mcg (2,000 unit) tablet RxNorm: 059702 Take 1 Tablet(s) Oral every day 022 2022 Inactive Myrbetriq 50 mg tablet,extended release RxNorm: 1591512 1 Tablet(s) Oral every day No Stop Date Active Ozempic 0.25 mg or 0.5 mg (2 mg/1.5 mL) subcutaneous pen injector RxNorm: 1096045 inject 0.5 milligrams subcutaneously every week 2021 Inactive Ozempic 0.25 mg or 0.5 mg (2 mg/1.5 mL) subcutaneous pen injector RxNorm: 7410690 Take 0.5 Capsule(s) Injection once a week 022 2021 Inactive omeprazole 20 mg capsule,delayed release RxNorm: 661868 Take 1 Capsule(s) Oral every evening 2020 Inactive Ozempic 0.25 mg or 0.5 mg (2 mg/1.5 mL) subcutaneous pen injector RxNorm: 2483572 Take 0.25 Milligram(s) Subcutaneous once a week 2021 Inactive Easy Touch Alcohol Prep Pads RxNorm: 505105 USE DIRECTED EACH MORNING 2021 Inactive Probiotic 10 billion cell capsule RxNorm: 0498791 Take 1 Capsule(s) Oral every day 2021 Inactive levothyroxine 50 mcg tablet RxNorm: 659523 Take 1 Tablet(s) Oral every day 2020 Inactive Acid Soft Crab Shedder (famotidine) 20 mg tablet RxNorm: 058551 Take 1 Tablet(s) Oral every morning 2020 Inactive Heartburn Relief (famotidine) 10 mg tablet RxNorm: 905285 Take 1 Tablet(s) Oral QAM 2020 Inactive levothyroxine 50 mcg tablet RxNorm: 225349 Take 1 Tablet(s) Oral QD 2020 Inactive Singulair 10 mg tablet RxNorm: 688671 TAKE (1) TABLET BY MOUTH DAILY 2020 Inactive metformin 1,000 mg tablet RxNorm: 463975 1 Tablet(s) Oral two times a day 2021 Inactive lisinopril 2.5 mg tablet RxNorm: 379509 Take 1 Tablet(s) Oral every day 2020 Inactive hydrochlorothiazide 25 mg tablet RxNorm: 466435 Take 1 Tablet(s) Oral every day 021 2020 Inactive ondansetron 4 mg disintegrating tablet RxNorm: 119411 1 Tablet(s) Oral two times a day 021 2020 Inactive Sudafed 12 Hour 120 mg tablet,extended release RxNorm: 6573828 TAKE 1 TABLET BY MOUTH EVERY 12 HOURS NEEDED 021 2021 Inactive Heartburn Relief (famotidine) 10 mg tablet RxNorm: 983220 Take 1 Tablet(s) Oral every morning 021 2020 Inactive omeprazole 20 mg capsule,delayed release RxNorm: 544801 1 Capsule(s) Oral every evening 021 2020 Inactive sertraline 100 mg tablet RxNorm: 043785 2 Tablet(s) Oral every day 021 2020 Inactive levothyroxine 50 mcg tablet RxNorm: 357585 TAKE (1) TABLET BY MOUTH DAILY 021 2020 Inactive metformin 500 mg tablet RxNorm: 670901 1 Tablet(s) Oral two times a day take with 500mg to equal 1000mg 021 2020 Inactive gabapentin 300 mg capsule RxNorm: 152342 TAKE 1 CAPSULE BY MOUTH THREE TIMES A DAY 021 2020 Inactive lisinopril 2.5 mg tablet RxNorm: 729967 TAKE 1 TABLET BY MOUTH DAILY 021 2020 Inactive gabapentin 300 mg capsule RxNorm: 064488 TAKE 1 CAPSULE BY MOUTH THREE TIMES A DAY 021 2020 Inactive Singulair 10 mg tablet RxNorm: 890536 TAKE (1) TABLET BY MOUTH DAILY 021 2020 Inactive metformin 1,000 mg tablet RxNorm: 549358 1 Tablet(s) Oral two times a day 021 2020 Inactive atorvastatin 40 mg tablet RxNorm: 328718 1 Tablet(s) Oral every day 021 2020 Inactive omeprazole 20 mg capsule,delayed release RxNorm: 719692 1 Capsule(s) Oral every evening 021 2020 Inactive famotidine 10 mg tablet RxNorm: 531761 1 Tablet(s) Oral every morning 021 2020 Inactive Alcohol Prep Pads RxNorm: 319162 USE EACH MORNING 2020 Inactive omeprazole 20 mg capsule,delayed release RxNorm: 377723 1 Capsule(s) Oral two times a day 2021 Inactive omeprazole 20 mg capsule,delayed release RxNorm: 229892 TAKE 1 CAPSULE BY MOUTH EVERY DAY 2021 Inactive Macrobid 100 mg capsule RxNorm: 093423 1 Capsule(s) Oral every 12 hours with food 2020 Inactive omeprazole 20 mg capsule,delayed release RxNorm: 134420 1 Capsule(s) Oral two times a day 2021 Inactive metformin 1,000 mg tablet RxNorm: 218792 1 Tablet(s) Oral two times a day 2020 Inactive start on September 11, 2020 metformin 500 mg tablet RxNorm: 278164 1 Tablet(s) Oral two times a day take with 500mg to equal 1000mg 2019 Inactive gabapentin 300 mg capsule RxNorm: 195539 TAKE 1 CAPSULE BY MOUTH THREE TIMES DAILY 2020 Inactive cetirizine 10 mg tablet RxNorm: 2575077 TAKE (1) TABLET BY MOUTH DAILY 2020 Inactive metformin 500 mg tablet RxNorm: 404839 1 Tablet(s) Oral two times a day 2019 Inactive loperamide 2 mg tablet RxNorm: 263978 1 Tablet(s) Oral as needed take one tablet after each loose stool, maximum of 8 tablets in 24 hours 2021 Inactive Sudafed 12 Hour 120 mg tablet,extended release RxNorm: 4873946 TAKE 1 TABLET BY MOUTH EVERY 12 HOURS NEEDED 2019 Inactive hydrochlorothiazide 25 mg tablet RxNorm: 366498 TAKE (1) TABLET BY MOUTH EVERY DAY 020 2019 Inactive omeprazole 20 mg capsule,delayed release RxNorm: 227215 TAKE 1 CAPSULE BY MOUTH EVERY DAY 020 2020 Inactive metformin 500 mg tablet RxNorm: 266153 1 Tablet(s) Oral every day 020 2019 Inactive True Metrix Glucose Test Strip RxNorm: 1 Test Strips Miscellaneous two times a day as needed No Stop Date Active metformin 500 mg tablet RxNorm: 795924 1 Tablet(s) Oral every day 2019 Inactive diclofenac sodium 75 mg tablet,delayed release RxNorm: 775090 1 Tablet(s) PO BID 2021 Inactive This refill negates all other refills of this medication Sudafed 12 Hour 120 mg tablet,extended release RxNorm: 3752999 TAKE 1 TABLET BY MOUTH EVERY 12 HOURS NEEDED 020 2019 Inactive True Metrix Glucose Test Strip RxNorm: 1 Test Strips Miscellaneous every morning 020 2019 Inactive 100/container True Metrix Glucose Test Strip RxNorm: 1 Test Strips Miscellaneous QA 020 2019 Inactive 100/container loperamide 2 mg tablet RxNorm: 178919 1 Tablet(s) Oral as needed take one tablet after each loose stool, maximum of 8 tablets in 24 hours 020 2019 Inactive cetirizine 10 mg tablet RxNorm: 9257296 1 Tablet(s) PO daily 020 2019 Inactive loperamide 2 mg tablet RxNorm: 921424 1 Tablet(s) Oral as needed take one tablet after each loose stool, maximum of 8 tablets in 24 hours 020 2019 Inactive quetiapine 100 mg tablet RxNorm: 514211 1 Tablet(s) Oral every night at bedtime 020 2019 Inactive levothyroxine 50 mcg tablet RxNorm: 956899 1 Tablet(s) PO daily 020 2020 Inactive gabapentin 300 mg capsule RxNorm: 504754 1 Capsule(s) PO TID 2019 Inactive levothyroxine 50 mcg tablet RxNorm: 924809 1 Tablet(s) PO daily 2019 Inactive lisinopril 2.5 mg tablet RxNorm: 020349 1 Tablet(s) PO daily 2020 Inactive gabapentin 300 mg capsule RxNorm: 754159 1 Capsule(s) PO TID 2019 Inactive cetirizine 10 mg tablet RxNorm: 0379867 1 Tablet(s) PO daily 2019 Inactive Singulair 10 mg tablet RxNorm: 917062 1 Tablet(s) PO daily 2020 Inactive gentamicin 0.3 % eye drops RxNorm: 317863 1 Drop(s) ophthalmic (eye) four times a day 2019 Inactive gentamicin 0.3 % eye drops RxNorm: 595195 1 Drop(s) ophthalmic (eye) four times a day 2019 Inactive gentamicin 0.3 % eye drops RxNorm: 054981 1 Drop(s) ophthalmic (eye) four times a day 2019 Inactive hydrochlorothiazide 25 mg tablet RxNorm: 326836 1 Tablet(s) Oral every day 2019 Inactive Sudafed 12 Hour 120 mg tablet,extended release RxNorm: 5238796 TAKE (1) TABLET BY MOUTH EVERY 12 HOURS NEEDED 2019 Inactive loperamide 2 mg tablet RxNorm: 698803 1 Tablet(s) Oral as needed take one tablet after each loose stool, maximum of 8 tablets in 24 hours 020 2019 Inactive loperamide 2 mg tablet RxNorm: 090744 1 Tablet(s) Oral as needed take one tablet after each loose stool, maximum of 8 tablets in 24 hours 2019 Inactive atorvastatin 40 mg tablet RxNorm: 642748 1 Tablet(s) Oral every day 020 2020 Inactive quetiapine 100 mg tablet RxNorm: 301215 1 Tablet(s) Oral every night at bedtime 2019 Inactive sertraline 100 mg tablet RxNorm: 096753 1 Tablet(s) Oral 2019 Inactive omeprazole 20 mg capsule,delayed release RxNorm: 935524 1 Capsule(s) Oral every day 2019 Inactive amoxicillin 250 mg capsule RxNorm: 755341 1 Capsule(s) Oral three times a day 2019 Inactive multivitamin with iron-mineral tablet RxNorm: 1 Tablet(s) Oral every day 2021 Inactive cetirizine 10 mg tablet RxNorm: 9086611 1 Tablet(s) PO daily 2019 Inactive This refill negates all other refills of this medication. Please do not auto refill Singulair 10 mg tablet RxNorm: 930462 1 Tablet(s) PO daily 2019 Inactive This refill negates all other refills of this medication gabapentin 300 mg capsule RxNorm: 234110 1 Capsule(s) PO TID 2019 Inactive lisinopril 2.5 mg tablet RxNorm: 415159 1 Tablet(s) PO daily 2019 Inactive levothyroxine 50 mcg tablet RxNorm: 023539 1 Tablet(s) PO daily 2019 Inactive This refill negates all other refills of this medication hydrochlorothiazide 25 mg tablet RxNorm: 726286 1 Tablet(s) Oral every day 2019 Inactive fenugreek seed extract 500 mg capsule RxNorm: 1 Capsule(s) Oral three times a day 020 2021 Inactive Alcohol Prep Pads RxNorm: 369911 1 Patch TOP QAM 2020 Inactive loperamide 2 mg tablet RxNorm: 734539 1 Tablet(s) Oral as needed take one tablet after each loose stool not to exceed 8 tablets a day 2018 Inactive Calcium 600-D3 Plus (mag-zinc) 600 mg calcium-800 unit-50 mg tablet RxNorm: 1 Tablet(s) PO daily take an additonal tablet for itching. 2021 Inactive This refill negates all other refills of this medication TRUEplus Lancets 30 gauge RxNorm: 1 Lancets Miscellaneous QAM 2019 Inactive 100/box fenugreek seed extract 500 mg capsule RxNorm: 1 Capsule(s) Oral three times a day 2019 Inactive hydrochlorothiazide 25 mg tablet RxNorm: 084410 1 Tablet(s) Oral every day 2019 Inactive Sudafed 12 Hour 120 mg tablet,extended release RxNorm: 7633118 1 Tablet(s) Oral every 12 hours as needed 2018 Inactive omeprazole 20 mg capsule,delayed release RxNorm: 051677 1 Capsule(s) Oral every day 2019 Inactive Sudafed 12 Hour 120 mg tablet,extended release RxNorm: 2130936 1 Tablet(s) Oral every 12 hours as needed 2018 Inactive pantoprazole 40 mg tablet,delayed release RxNorm: 449612 1 Tablet(s) Oral every day 2018 Inactive discontinue any other H2Blkr. and PPI albuterol sulfate 2.5 mg/3 mL (0.083 %) solution for nebulization RxNorm: 218216 1 Vial Inhalation every four hours as needed as needed for dyspnea 2019 Inactive 60/box. This refill negates all other refills of this medication. Please do not fill early. Please do not auto refill. Symbicort 160 mcg-4.5 mcg/actuation HFA aerosol inhaler RxNorm: 6630300 2 Puff(s) INH BID No Stop Date Active Alcohol Prep Pads RxNorm: 268581 1 Patch TOP QAM 019 2019 Inactive Ventolin HFA 90 mcg/actuation aerosol inhaler RxNorm: 390144 2 Puff(s) INH QID 019 2019 Inactive Please do not fill early. Please do not auto refill. This refill negates all other refills of this medication True Metrix Glucose Test Strip RxNorm: 1 Test Strips Miscellaneous QA 019 2019 Inactive 100/container atorvastatin 40 mg tablet RxNorm: 007560 1 Tablet(s) Oral every day 019 2019 Inactive buspirone 7.5 mg tablet RxNorm: 614769 1 Tablet(s) PO BID 019 2020 Inactive This refill negates all other refills of this medication hydrochlorothiazide 12.5 mg tablet RxNorm: 871110 1 Tablet(s) PO QAM 019 2019 Inactive levmetamfetamine 50 mg nasal inhaler RxNorm: 1 Unit(s) NASAL Q3-4H Do not use more than every 3 hours or 8 times/24hours 019 2021 Inactive Please do not auto refill. This refill negates all other refills of this medication Ventolin HFA 90 mcg/actuation aerosol inhaler RxNorm: 068359 2 Puff(s) INH QID 019 2018 Inactive Please do not fill early. Please do not auto refill. This refill negates all other refills of this medication Singulair 10 mg tablet RxNorm: 121807 1 Tablet(s) PO daily 019 2019 Inactive This refill negates all other refills of this medication cetirizine 10 mg tablet RxNorm: 3275818 1 Tablet(s) PO daily 019 2019 Inactive This refill negates all other refills of this medication. Please do not auto refill levothyroxine 50 mcg tablet RxNorm: 235827 1 Tablet(s) PO daily 019 2019 Inactive This refill negates all other refills of this medication diclofenac sodium 75 mg tablet,delayed release RxNorm: 218559 1 Tablet(s) PO BID 019 2019 Inactive This refill negates all other refills of this medication ranitidine 150 mg tablet RxNorm: 401486 1 Tablet(s) PO BID 019 2018 Inactive This refill negates all other refills of this medication Calcium 600-D3 Plus (mag-zinc) 600 mg calcium-800 unit-50 mg tablet RxNorm: 1 Tablet(s) PO daily take an additonal tablet for itching. 2018 Inactive This refill negates all other refills of this medication albuterol sulfate 2.5 mg/3 mL (0.083 %) solution for nebulization RxNorm: 323543 1 Vial INH QID 2018 Inactive 60/box. This refill negates all other refills of this medication. Please do not fill early. Please do not auto refill. lisinopril 2.5 mg tablet RxNorm: 699387 1 Tablet(s) PO daily 019 2019 Inactive gabapentin 300 mg capsule RxNorm: 000831 1 Capsule(s) PO TID 019 2019 Inactive atorvastatin 20 mg tablet RxNorm: 323166 1 Tablet(s) PO QHS 2018 Inactive This refill negates all other refills of this medication TRUEplus Lancets 30 gauge RxNorm: 1 Lancets Miscellaneous QAM 019 2018 Inactive 100/box gabapentin 300 mg capsule RxNorm: 787469 1 Capsule(s) PO TID 019 2018 Inactive Flintstones Complete (iron) 18 mg iron chewable tablet RxNorm: 1 Tablet(s) PO daily 019 2021 Inactive This refill negates all other refills of this medication gabapentin 300 mg capsule RxNorm: 337483 1 Capsule(s) PO TID as needed 019 2018 Inactive True Metrix Glucose Test Strip RxNorm: 1 Test Strips Miscellaneous QA 019 2018 Inactive 100/container Alcohol Prep Pads RxNorm: 896290 1 Patch TOP QA 019 2018 Inactive TRUEplus Lancets 30 gauge RxNorm: 1 Lancets Miscellaneous QAM 019 2018 Inactive 100/box lisinopril 2.5 mg tablet RxNorm: 726594 1 Tablet(s) PO daily 019 2018 Inactive ranitidine 150 mg tablet RxNorm: 078299 1 Tablet(s) PO BID 019 2018 Inactive This refill negates all other refills of this medication albuterol sulfate 2.5 mg/3 mL (0.083 %) solution for nebulization RxNorm: 744799 1 Vial INH QID 019 2018 Inactive [...] this medication gabapentin 300 mg capsule RxNorm: 894625 1 Capsule(s) PO TID as needed 019 2018 Inactive atorvastatin 20 mg tablet RxNorm: 534122 1 Tablet(s) PO QHS 019 2018 Inactive This refill negates all other refills of this medication trazodone 50 mg tablet RxNorm: 648243 1 Tablet(s) PO QHS 019 2018 Inactive This refill negates all other refills of this medication Ventolin HFA 90 mcg/actuation aerosol inhaler RxNorm: 722221 2 Puff(s) INH QID 019 2018 Inactive Please do not fill early. Please do not auto refill. This refill negates all other refills of this medication Calcium 600-D3 Plus 600 mg calcium-800 unit-50 mg tablet RxNorm: 1 Tablet(s) PO daily take an additonal tablet for itching. 019 2018 Inactive This refill negates all other refills of this medication Singulair 10 mg tablet RxNorm: 105901 1 Tablet(s) PO daily 019 2018 Inactive This refill negates all other refills of this medication buspirone 7.5 mg tablet RxNorm: 002176 1 Tablet(s) PO BID 019 2018 Inactive This refill negates all other refills of this medication diclofenac sodium 75 mg tablet,delayed release RxNorm: 155355 1 Tablet(s) PO BID 019 2018 Inactive This refill negates all other refills of this medication hydrochlorothiazide 12.5 mg tablet RxNorm: 102748 1 Tablet(s) PO QAM 019 2018 Inactive metoprolol succinate ER 50 mg tablet,extended release 24 hr RxNorm: 130261 1 Tablet(s) PO daily 019 2018 Inactive This refill negates all other refills of this medication levothyroxine 50 mcg tablet RxNorm: 981612 1 Tablet(s) PO daily 019 2018 Inactive This refill negates all other refills of this medication cetirizine 10 mg tablet RxNorm: 1077201 1 Tablet(s) PO daily 019 2018 Inactive This refill negates all other refills of this medication. Please do not auto refill Flintstones Complete (iron) 18 mg iron chewable tablet RxNorm: 1 Tablet(s) PO daily 019 2018 Inactive This refill negates all other refills of this medication buspirone 7.5 mg tablet RxNorm: 213203 1 Tablet(s) PO BID 019 2018 Inactive cetirizine 10 mg tablet RxNorm: 6433294 1 Tablet(s) PO daily 2018 Inactive Guaiasorb DM 10 mg-100 mg/5 mL oral liquid RxNorm: 629764 10 Milliliter(s) PO As needed every 4 hr 2018 Inactive Vicks Vaporub 4.7 %-1.2 %-2.6 % topical ointment RxNorm: 0370914 1 Application TOP TID 2018 Inactive levmetamfetamine 50 mg nasal inhaler RxNorm: 1 Unit(s) NASAL Q3-4H 2017 Inactive sertraline 50 mg tablet RxNorm: 043695 1 Tablet(s) PO daily 2018 Inactive Please note dose trazodone 50 mg tablet RxNorm: 269714 1 Tablet(s) PO QHS 2018 Inactive sertraline 50 mg tablet RxNorm: 563956 1 Tablet(s) PO daily 2017 Inactive amoxicillin 500 mg tablet RxNorm: 938838 1 Tablet(s) PO Q12H 2017 Inactive albuterol sulfate 2.5 mg/3 mL (0.083 %) solution for nebulization RxNorm: 064740 1 Vial INH QID 2018 Inactive 60/box. Please do not fill early. Please do not auto refill. Prozac 10 mg capsule RxNorm: 667825 1 Capsule(s) PO daily 2017 Inactive buspirone 7.5 mg tablet RxNorm: 301329 1 Tablet(s) PO BID 2018 Inactive gabapentin 300 mg capsule RxNorm: 949064 1 Capsule(s) PO TID as needed 2018 Inactive hydrochlorothiazide 12.5 mg tablet RxNorm: 795905 1 Tablet(s) PO QAM 2018 Inactive ranitidine 150 mg tablet RxNorm: 307251 1 Tablet(s) PO BID 2018 Inactive Macrobid 100 mg capsule RxNorm: 965544 1 Capsule(s) PO Q12H 018 2017 Inactive Singulair 10 mg tablet RxNorm: 250161 1 Tablet(s) PO daily 018 2018 Inactive Ventolin HFA 90 mcg/actuation aerosol inhaler RxNorm: 9792064 2 Puff(s) INH QID 018 2018 Inactive Singulair 10 mg tablet RxNorm: 344775 1 Tablet(s) PO daily 018 2017 Inactive buspirone 7.5 mg tablet RxNorm: 364042 1 Tablet(s) PO BID 018 2017 Inactive Prozac 10 mg capsule RxNorm: 910854 1 Capsule(s) PO daily 018 2017 Inactive diclofenac sodium 75 mg tablet,delayed release RxNorm: 687161 1 Tablet(s) PO BID 018 2017 Inactive lisinopril 2.5 mg tablet RxNorm: 375208 1 Tablet(s) PO daily 018 2017 Inactive Neilmed Pediatric Sinus Rinse Refill packet RxNorm: 1 Unit Dose NASAL PRN 018 2021 Inactive metoprolol succinate ER 50 mg tablet,extended release 24 hr RxNorm: 296009 1 Tablet(s) PO daily 018 2017 Inactive levothyroxine 50 mcg tablet RxNorm: 944297 1 Tablet(s) PO daily 018 2017 Inactive TRUEplus Lancets 30 gauge RxNorm: 1 Lancets Miscellaneous QAM 018 2017 Inactive 100/box Ventolin HFA 90 mcg/actuation aerosol inhaler RxNorm: 958162 2 Puff(s) INH QID 018 2017 Inactive Aleve 220 mg capsule RxNorm: 7821842 1 Capsule(s) PO BID 018 2018 Inactive ranitidine 150 mg tablet RxNorm: 436064 1 Tablet(s) PO BID 018 2017 Inactive gabapentin 300 mg capsule RxNorm: 841979 1 Capsule(s) PO TID as needed 018 2017 Inactive atorvastatin 20 mg tablet RxNorm: 200718 1 Tablet(s) PO QHS 018 2017 Inactive True Metrix Glucose Test Strip RxNorm: 1 Test Strips Miscellaneous QA 018 2017 Inactive 50/container Calcium 600-D3 Plus 600 mg calcium-800 unit-50 mg tablet RxNorm: 1 Tablet(s) PO daily take an additonal tablet for itching. 018 2017 Inactive hydrochlorothiazide 12.5 mg tablet RxNorm: 567779 1 Tablet(s) PO QAM 018 2017 Inactive Flintstones Complete (iron) 18 mg iron chewable tablet RxNorm: 1 Tablet(s) PO daily 018 2017 Inactive True Metrix Glucose Meter RxNorm: miscellaneous 019 2018 Inactive sertraline 50 mg tablet RxNorm: 336980 1 Tablet(s) PO daily 020 2019 Inactive loperamide 2 mg tablet RxNorm: 472740 oral 019 2018 Inactive d-mannose oral powder RxNorm: PO 018 2021 Inactive Symbicort 160 mcg-4.5 mcg/actuation HFA aerosol inhaler RxNorm: 6489680 2 Puff(s) INH BID 019 2018 Inactive Medication Administered No Medication Administered data Procedures Procedure Codes Date Patient General Health Asses semnt Compared to one year ago, how would you rate your health in general?/the same CPT-4: GUUSMmsxriv11/07/2022atient Health QuestionnaireCPT-4: DPHQ10/07/2021 Frailty ScreeningCPT-4: SFD05/20/2021HypertensionCPT-4: HTN04/01/2021Tobacco Assessment/ScreeningCPT-4: TCA03/13/2021atient Health QuestionnaireCPT-4: DPHQ 03/13/2021Mini Mental State ExamCPT-4: DMMA01/29/2021nnual Wellness Visit (Subsequent Visit)CPT-4: O232659dvanced Care PlanningCPT-4: VACP 01/13/2021Fall Risk AssessmentSNOMED CT: 585030288 CPT-4: DFRA01/13/2021emmes Fany AssessmentCPT-4: DSWA12/17/2020Urinalysis, dip stickCPT-4: 843107909/24/2020Patient Health QuestionnaireCPT-4: DPHQ 08/19/2020ElectrocardiogramCPT-4: 153046205/14/2020Tobacco Assessment/Screening CPT-4: TCA01/01/2020Fall Risk AssessmentSNOMED CT: 777865432 CPT-4: DFRA01/01/2020Functional AssessmentCPT-4: DFA01/01/2020Semmes Fany AssessmentCPT-4: DSWA11/28/2019Patient Health QuestionnaireCPT-4: DPHQ11/28/2019 [place] Fany AssessmentCPT-4: DSWA10/17/2019HypertensionCPT-4: HTN10/17/[address]: 889070435 CPT-4: DFRA09/19/2019Functional AssessmentCPT-4: DFA111/20/2018Urinalysis, dip stickCPT-4: 001651406/21/2019Tobacco Assessment/ScreeningCPT-4: TCA05/24/2019 Patient Health QuestionnaireCPT-4: DPHQ05/24/2019AHA/REBECCA Classification AssessmentCPT-4: DAHA04/25/2019Controlled Substance ReportCPT-4: CTRSU04/25/2019 Urinalysis, dip stickCPT-4: 794677703/28/2019Urinalysis, dip stickCPT-4: 18149 03/28/20198621W4H-YatrjwqxaxnblnpPAH-0: 02918QczniajX8M-ZqaiarctzkrtvbjRRL-8: 64863 WxjrzekO9U-QozmugyluvvkitbWGI-2: 90312BubmmcqC8H-VyvjcpcrmzszaxvYKH-2: 02702 LfqqrclX3L-DmzwjdzvobjfresONE-1: 02375XdolnxcL9W-MjyfwazzcelodkoYZG-1: 22628 OwefpdaD1M-AcegklmdjvzjbtiAWK-7: 05903KgdtjjcU2P-WyeyrhtecmxxcnkYEL-9: [address]: 353018614 CPT-4: B25Tpnkbpx Reason For Visit No Reason For Visit data Plan of Care Planned Activity Notes Codes Status Date Patient Education: Patient Medication Summary Ufjtytlig97/07/2022ppointment: Mikey Nair WPtel: [facility] [id number]: Chivo Bishop WPtel: [address] [place] [address] [id number]: Chivo Bishop WPtel: [address] [place] [address] [id number]: Chivo Bishop WPtel: [address] [place] [address] USETV111/11/2020ppointment: Chivo Bishop WPtel: [address] [place] [address] USETV110/13/2020ppointment: Chivo Bishop WPtel: [address] [place] [address] USETV1ppointment: Chivo Bishop WPtel: [address] [place] [address] XYCKIE1806/10/2021ppointment: Anna Culver WPtel: [address] [place] [address] USETV06/02/2021ppointment: Chivo Bishop WPtel: [address] [place] [address] USETV05/20/2021ppointment: Anna Culver WPtel: [phone] [place] [address] USETV04/28/2021ppointment: Chivo Bishop WPtel: [phone] [place] [address] USETV04/15/2021ppointment: Anna Culver WPtel: [phone] [place] [address] [id number]: Anna Culver WPtel: [address] [place] [address] USET03/24/2021ppointment: Anna Culver WPtel: [phone] [place] [address] USETV03/13/2021ppointment: Anna Culver WPtel: [phone] [place] [address] [id number]: Chivo Bishop WPtel: [phone] [place] [address] [id number]: Anna Culver WPtel: [phone] [place] [address] USETV01/13/2021ppointment: Anna Culver WPtel: [phone] [place] [address] [id number]: Chivo Bishop WPtel: [phone] [place] [address] USETV11/28/2020ppointment: Anna Culver WPtel: [phone] [place] [address] USETV11/24/2020ppointment: Anna Culver WPtel: [phone] [place] [address] [place] [address] [id number]: Anna Culver WPtel: [phone] [place] [address] [address] [place] [address] GWF7883111/25/2019Appointment: Anna Culver WPtel: [phone] [place] [address] USETV110/26/2019Appointment: Anna Culver WPtel: [phone] [place] [address] USETV110/19/2019Appointment: Anna Culver WPtel: [address] [place] [address] USETV1Appointment: Anna Culver WPtel: [address] [place] [address] USETV1Appointment: Gianna [place] MCtel: [address] [facility] [address] [id number] OFAXCH1907/02/2020Appointment: Anna Culver WPtel: [address] [place] [address] [id number]: Anna Culver WPtel: [address] [place] [address] [place] [address] [id number]: Anna Culver WPtel: [phone] [place] [address] [place] [address] [id number]: Anna Culver WPtel: [phone] [place] [address] [id number]: Anna Culver WPtel: [phone] [place] [address] [place] [address] [id number]: Anna Culver WPtel: [address] [place] [address] [id number]: Anna Culver WPtel: [address] [facility] [address] [place] [address] [id number]: Palomo Anna WPtel: [address] [place] [address] [id number]: Anna Culver WPtel: [address] [place] [address] [id number]: Anna Culver WPtel: [address] [place] [address] LED2797611/20/2018Appointment: Sudha Hernadez WPtel: [address] [facility] [address] [id number]: Sudha Hernadez WPtel: [address] [facility] [address] [id number]: Charlene Oropeza WPtel: [address] [facility] [address] [id number]: Enedelia [id number]: Charlene Oropeza WPtel: [address] [facility] [address] [id number]: Rasta Palafox WPtel: [address] [facility] [address] [id number]: Rasta Palafox WPtel: [address] [facility] [address] [id number]: Rasta Palafox WPtel: [address] [facility] [address] [id number]: Rasta Palafox WPtel: [address] [facility] [address] [id number]: Pending Gynecology Referral InformationReferral ProcessedReferral: Pending Pulmonology Referral InformationReferralProcessed Referral: Pending Psychiatry Referral InformationReferralInitiatedReferral: Pending Respiratory Services Referral InformationReferralInitiatedReferral: Pending Ophthalmology Referral InformationReferralInitiatedReferral: [facility] WPtel: [address] [place] [address] [address] [facility] USWriter placed a call out to the patient to notify her that it has been recommended that she be seenby 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 Patient agreed to be seen, does not have a provider of choice and no transportationissues. Staff Rn faxed referral and clinical notes to [facility] in [place], [place] near the patient's home. Patient to [...] seen and prefers a provider in the [place] or [place] area. Staff Rn placed a call out to everyone listed in the area and the only location that was able to accept the patient's insurance was [place] [address] [place] [address] and spoke with Maylin. Maylin asked that the patient's referral, face sheet and visit notes be faxed to . Staff Rn faxed over requested documents. Patient appointment confirmation letter generated and mailed to her home address. Patient to call to schedule an appointment.ProcessedReferral: [facility] WPtel: [address] [facility] [address] [id number] USPatient notified that it has been advised that she be seen by Neurology. Patient agreed to be seen and prefers to be seen by a provider in the [place], [place] area. Patient denies any concerns with transportation, and prefers to schedule her own appointment. Staff Rn placed a call out to [facility] and spoke with Neeraj P: who confirmed that their office is able to acceptnew patients and the patient's insurance. After confirming the providers fax number, life insurance underwriter faxed over the patient's referral, [...]
--- OUTSIDE RECORDS SUMMARY | 2022-02-12 20:00 | XMS_ITS | CCD ---
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 Name Role Phone Palomo KING, Anna Primary Care Provider Unav ailable Unavailable Chronic Care Management Unavaila ble Summary Purpose DataExchange Insurance Providers Payer name Policy type / Coverage type Covered constitution party ID Effective Begin Date Effective End Date SUKI MAYO [id number] Unknown Unknown Family history Mother Diagnosis Age [...] 05/31/2018 Education level Unknown Some High School 10th05/31/20180157ZttvjfkyksRcapbpvQveoxjgftx06/29/2018Tobacco historySNOMED CT: [id number] never smoked or chewed eytwmtw1105/31/2018Alcohol historySNOMED CT: 462105354Lrnwr drinks xwptuxi5505/31/2018Has the patient ever used illegal drugs? UnknownHas never used illegal drugs05/31/2018DNR Order/ Advanced Directive UnknownFull Code05/31/2018 Allergies, Adverse Reactions, Alerts Substance Reaction Codes Entered Date Inactivated Date Status OxyContin itch, RxNorm: 870520 01/13/2021 No Inactive Da te Active *No known food allergies Hcftrel4309/06/2018No Inactive DateActiveMethylprednisolonehivesRxNorm: 6902 09/06/2018No Inactive DateActive Problems Condition Codes Effective Dates Condition St atus (Z00.00-V70.9) Encounter for general adult medical examination without abnormal findings ICD-10: Z00.00 ICD-9: V70.905/2ActiveAdult BMI 50.0-59.9 kg/sq mICD-10: Z68.43 ICD-9: V85.4308/ActiveAllergic rhinitisICD-10: J30.9 ICD-9: 477.903/2ActiveHyperlipidemia, mixedICD-10: E78.2 ICD-9: 272.203/2ActiveHypertensionICD-10: I10 ICD-9: 401.903/2ActiveObstructive sleep apnea (adult) (pediatric)ICD-10: G47.33 ICD-9: 327.2309/ActiveType 2 diabetes mellitus with peripheral neuropathy ICD-10: E11.42 ICD-9: 250.6002/ActiveAdjustment disorder with mixed anxiety and depressed moodICD-10: F43.23 ICD-9: 309.2812/01/2018ActiveAsthmaICD-10: J45.909 ICD-9: 493.9011/03/2018ActiveGERD (gastroesophageal reflux disease)ICD-10: K21.9 ICD-9: 530.8112/03/2019ActiveEdema, unspecifiedICD-10: R60.9 ICD-9: 782.310/06/2018ActiveHypertensive heart diseaseICD-10: I11.9 ICD-9: 402.9003/2ActiveVitamin D deficiencyICD-10: E55.9 ICD-9: 268.903/2ActiveHypertensive heart disease with heart failureICD-10: I11.0 ICD-9: 402.9107/Resolved(Z00.01-V70.0) Encounter for general adult medical examination with abnormal findingsICD-10: Z00.01 ICD-9: V70.004/1Resolved(Z12.11-V76.51) Encounter for screening for malignant neoplasm of colonICD-10: Z12.11 ICD-9: V76.5107Resolved(Z12.31-V76.12) Encounter for screening mammogram for malignant neoplasm of breastICD-10: Z12.31 ICD-9: V76.1207/Resolved(Z12.4-V76.2) Encounter for screening for malignant neoplasm of cervixICD-10: Z12.4 ICD-9: V76.207/Resolved(Z13.31-V79.0) Encounter for screening for depressionICD-10: Z13.31 ICD-9: V79.004/131ResolvedAnorexiaICD-10: R63.0 ICD-9: 783.003/1ResolvedBlisterICD-10: T14.8XXA ICD-9: 919.1ResolvedChronic kidney disease, stage 2 (mild)ICD-10: N18.2 ICD-9: 585.201/1ResolvedCOVID-19 virus RNA test result positive at limit of detectionICD-10: U07.1 ICD-9: 079.8909/1ResolvedDiarrheaICD-10: R19.7 ICD-9: 787.9111/1ResolvedDyspnea, unspecifiedICD-10: R06.00 ICD-9: 786.0905/06/2019ResolvedElevated liver enzymesICD-10: R74.8 ICD-9: 790.504/1ResolvedEncounter for screening for tobacco useICD-10: Z01.89 ICD-9: V72.8503ResolvedEncounter for screening, unspecifiedICD-10: Z13.9 ICD-9: V82.912ResolvedFamily history of seizuresICD-10: Z84.89 ICD-9: V19.807/1ResolvedHyperlipidemia, unspecifiedICD-10: E78.5 ICD-9: 272.408ResolvedLong term (current) use of non-steroidal anti- inflammatories (NSAID)ICD-10: Z79.1 ICD-9: V58.6409/11/2018ResolvedPatient Not SeenICD-10: UXZ.01 ICD-9: XZ0.107/ResolvedPatient not seenICD-10: UXZ.01 ICD-9: UXZ.0112/1ResolvedUpper respiratory infectionICD-10: J06.9 ICD-9: 465.908/1ResolvedSyncope and collapseICD-10: R55 ICD-9: 780.203ActivePost-traumatic stress disorder, unspecifiedICD-10: F43.10 ICD-9: 309.8112ActiveHistory of bladder surgeryICD-10: Z98.890 ICD-9: V45.8904ctiveUrinary retention with incomplete bladder emptying ICD-10: R33.9 ICD-9: 788.2101ActiveEncounter for immunizationICD-10: Z23 ICD-9: V04.8109InactiveApnea, not elsewhere classifiedICD-10: R06.81 ICD-9: 786.0305InactiveChest pain, unspecifiedICD-10: R07.9 ICD-9: 786.5002InactiveChronic kidney disease, unspecifiedICD-10: N18.9 ICD-9: 585.909InactiveEncounter for immunizationICD-10: Z23 ICD-9: V03.907/InactiveEncounter for preprocedural cardiovascular examinationICD-10: Z01.810 ICD-9: V72.8106/InactiveHeadacheICD-10: R51 ICD-9: 784.001InactiveOther terminal operator (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ICD-10: Z79.899 ICD-9: V58.6907InactiveType 2 [...] unspecifiedICD-10: E03.9 ICD-9: 244.912ActiveFecal incontinenceICD-10: R15.9 ICD-9: 787.6003/ActiveMixed incontinenceICD-10: N39.46 ICD-9: 788.3308/ActiveAbnormal electrocardiogram [ECG] [EKG]ICD-10: R94.31 ICD-9: 794.3108Active Medications Medication Codes Instructions Start Date Stop Date Status Fill Instructions atorvastatin 20 mg tablet RxNorm: 436914 Take 1 Tablet(s) Oral every night at bedtime 022 2021 Inactive This refill negates all other refills of this medication lisinopril 2.5 mg tablet RxNorm: 469813 Take 1 Tablet(s) Oral every day 022 2021 Inactive gabapentin 300 mg capsule RxNorm: 450336 Take 1 Capsule(s) Oral three times a day 022 2021 Inactive montelukast 10 mg tablet RxNorm: 227917 Take 1 Tablet(s) Oral every day 04/072021 Inactive cholecalciferol (vitamin D3) 50 mcg (2,000 unit) tablet RxNorm: 563313 Take 1 Tablet(s) Oral every day 2022 Inactive Myrbetriq 50 mg tablet,extended release RxNorm: 9147791 1 Tablet(s) Oral every day No Stop Date Active Ozempic 0.25 mg or 0.5 mg (2 mg/1.5 mL) subcutaneous pen injector RxNorm: 3922482 inject 0.5 milligrams subcutaneously every week 2021 Inactive Ozempic 0.25 mg or 0.5 mg (2 mg/1.5 mL) subcutaneous pen injector RxNorm: 0432511 Take 0.5 Capsule(s) Injection once a week 2021 Inactive omeprazole 20 mg capsule,delayed release RxNorm: 057419 Take 1 Capsule(s) Oral every evening 2020 Inactive Ozempic 0.25 mg or 0.5 mg (2 mg/1.5 mL) subcutaneous pen injector RxNorm: 0503659 Take 0.25 Milligram(s) Subcutaneous once a week 2021 Inactive Easy Touch Alcohol Prep Pads RxNorm: 378710 USE DIRECTED EACH MORNING 2021 Inactive Probiotic 10 billion cell capsule RxNorm: 5429949 Take 1 Capsule(s) Oral every day 2021 Inactive levothyroxine 50 mcg tablet RxNorm: 856362 Take 1 Tablet(s) Oral every day 2020 Inactive Acid Neck Skewer (famotidine) 20 mg tablet RxNorm: 695025 Take 1 Tablet(s) Oral every morning 2020 Inactive Heartburn Relief (famotidine) 10 mg tablet RxNorm: 702941 Take 1 Tablet(s) Oral QAM 2020 Inactive levothyroxine 50 mcg tablet RxNorm: 880451 Take 1 Tablet(s) Oral QD 2020 Inactive Singulair 10 mg tablet RxNorm: 631357 TAKE (1) TABLET BY MOUTH DAILY 021 2020 Inactive metformin 1,000 mg tablet RxNorm: 486561 1 Tablet(s) Oral two times a day 021 2021 Inactive lisinopril 2.5 mg tablet RxNorm: 221569 Take 1 Tablet(s) Oral every day 021 2020 Inactive hydrochlorothiazide 25 mg tablet RxNorm: 661867 Take 1 Tablet(s) Oral every day 021 2020 Inactive ondansetron 4 mg disintegrating tablet RxNorm: 944785 1 Tablet(s) Oral two times a day 021 2020 Inactive Sudafed 12 Hour 120 mg tablet,extended release RxNorm: 5214408 TAKE 1 TABLET BY MOUTH EVERY 12 HOURS NEEDED 2021 Inactive Heartburn Relief (famotidine) 10 mg tablet RxNorm: 179028 Take 1 Tablet(s) Oral every morning 021 2020 Inactive omeprazole 20 mg capsule,delayed release RxNorm: 866276 1 Capsule(s) Oral every evening 021 2020 Inactive sertraline 100 mg tablet RxNorm: 329951 2 Tablet(s) Oral every day 021 2020 Inactive levothyroxine 50 mcg tablet RxNorm: 260554 TAKE (1) TABLET BY MOUTH DAILY 021 2020 Inactive metformin 500 mg tablet RxNorm: 899942 1 Tablet(s) Oral two times a day take with 500mg to equal 1000mg 021 2020 Inactive gabapentin 300 mg capsule RxNorm: 823826 TAKE 1 CAPSULE BY MOUTH THREE TIMES A DAY 021 2020 Inactive lisinopril 2.5 mg tablet RxNorm: 253465 TAKE 1 TABLET BY MOUTH DAILY 021 2020 Inactive gabapentin 300 mg capsule RxNorm: 006931 TAKE 1 CAPSULE BY MOUTH THREE TIMES A DAY 021 2020 Inactive Singulair 10 mg tablet RxNorm: 312242 TAKE (1) TABLET BY MOUTH DAILY 021 2020 Inactive metformin 1,000 mg tablet RxNorm: 067437 1 Tablet(s) Oral two times a day 021 2020 Inactive atorvastatin 40 mg tablet RxNorm: 571380 1 Tablet(s) Oral every day 021 2020 Inactive omeprazole 20 mg capsule,delayed release RxNorm: 218788 1 Capsule(s) Oral every evening 021 2020 Inactive famotidine 10 mg tablet RxNorm: 594889 1 Tablet(s) Oral every morning 021 2020 Inactive Alcohol Prep Pads RxNorm: 076094 USE EACH MORNING 021 2020 Inactive omeprazole 20 mg capsule,delayed release RxNorm: 014035 1 Capsule(s) Oral two times a day 2021 Inactive omeprazole 20 mg capsule,delayed release RxNorm: 059450 TAKE 1 CAPSULE BY MOUTH EVERY DAY 2021 Inactive Macrobid 100 mg capsule RxNorm: 501198 1 Capsule(s) Oral every 12 hours with food 2020 Inactive omeprazole 20 mg capsule,delayed release RxNorm: 793467 1 Capsule(s) Oral two times a day 2021 Inactive metformin 1,000 mg tablet RxNorm: 787814 1 Tablet(s) Oral two times a day 2020 Inactive start on September 11, 2020 metformin 500 mg tablet RxNorm: 590449 1 Tablet(s) Oral two times a day take with 500mg to equal 1000mg 2019 Inactive gabapentin 300 mg capsule RxNorm: 883310 TAKE 1 CAPSULE BY MOUTH THREE TIMES DAILY 2020 Inactive cetirizine 10 mg tablet RxNorm: 0444260 TAKE (1) TABLET BY MOUTH DAILY 2020 Inactive metformin 500 mg tablet RxNorm: 584761 1 Tablet(s) Oral two times a day 020 2019 Inactive loperamide 2 mg tablet RxNorm: 783192 1 Tablet(s) Oral as needed take one tablet after each loose stool, maximum of 8 tablets in 24 hours 020 2021 Inactive Sudafed 12 Hour 120 mg tablet,extended release RxNorm: 0188347 TAKE 1 TABLET BY MOUTH EVERY 12 HOURS NEEDED 020 2019 Inactive hydrochlorothiazide 25 mg tablet RxNorm: 483382 TAKE (1) TABLET BY MOUTH EVERY DAY 020 2019 Inactive omeprazole 20 mg capsule,delayed release RxNorm: 740111 TAKE 1 CAPSULE BY MOUTH EVERY DAY 020 2020 Inactive metformin 500 mg tablet RxNorm: 980380 1 Tablet(s) Oral every day 020 2019 Inactive True Metrix Glucose Test Strip RxNorm: 1 Test Strips Miscellaneous two times a day as needed No Stop Date Active metformin 500 mg tablet RxNorm: 362392 1 Tablet(s) Oral every day 020 2019 Inactive diclofenac sodium 75 mg tablet,delayed release RxNorm: 799586 1 Tablet(s) PO BID 020 2021 Inactive This refill negates all other refills of this medication Sudafed 12 Hour 120 mg tablet,extended release RxNorm: 2707014 TAKE 1 TABLET BY MOUTH EVERY 12 HOURS NEEDED 020 2019 Inactive True Metrix Glucose Test Strip RxNorm: 1 Test Strips Miscellaneous every morning 020 2019 Inactive 100/container True Metrix Glucose Test Strip RxNorm: 1 Test Strips Miscellaneous QA 020 2019 Inactive 100/container loperamide 2 mg tablet RxNorm: 283197 1 Tablet(s) Oral as needed take one tablet after each loose stool, maximum of 8 tablets in 24 hours 020 2019 Inactive cetirizine 10 mg tablet RxNorm: 7179039 1 Tablet(s) PO daily 2019 Inactive loperamide 2 mg tablet RxNorm: 126957 1 Tablet(s) Oral as needed take one tablet after each loose stool, maximum of 8 tablets in 24 hours 2019 Inactive quetiapine 100 mg tablet RxNorm: 452288 1 Tablet(s) Oral every night at bedtime 2019 Inactive levothyroxine 50 mcg tablet RxNorm: 359845 1 Tablet(s) PO daily 2020 Inactive gabapentin 300 mg capsule RxNorm: 001250 1 Capsule(s) PO TID 2019 Inactive levothyroxine 50 mcg tablet RxNorm: 129820 1 Tablet(s) PO daily 2019 Inactive lisinopril 2.5 mg tablet RxNorm: 583137 1 Tablet(s) PO daily 2020 Inactive gabapentin 300 mg capsule RxNorm: 038450 1 Capsule(s) PO TID 2019 Inactive cetirizine 10 mg tablet RxNorm: 4039230 1 Tablet(s) PO daily 2019 Inactive Singulair 10 mg tablet RxNorm: 923867 1 Tablet(s) PO daily 2020 Inactive gentamicin 0.3 % eye drops RxNorm: 638010 1 Drop(s) ophthalmic (eye) four times a day 2019 Inactive gentamicin 0.3 % eye drops RxNorm: 851803 1 Drop(s) ophthalmic (eye) four times a day 2019 Inactive gentamicin 0.3 % eye drops RxNorm: 831846 1 Drop(s) ophthalmic (eye) four times a day 2019 Inactive hydrochlorothiazide 25 mg tablet RxNorm: 737209 1 Tablet(s) Oral every day 2019 Inactive Sudafed 12 Hour 120 mg tablet,extended release RxNorm: 2315335 TAKE (1) TABLET BY MOUTH EVERY 12 HOURS NEEDED 2019 Inactive loperamide 2 mg tablet RxNorm: 722000 1 Tablet(s) Oral as needed take one tablet after each loose stool, maximum of 8 tablets in 24 hours 020 2019 Inactive loperamide 2 mg tablet RxNorm: 215547 1 Tablet(s) Oral as needed take one tablet after each loose stool, maximum of 8 tablets in 24 hours 020 2019 Inactive atorvastatin 40 mg tablet RxNorm: 789857 1 Tablet(s) Oral every day 2020 Inactive quetiapine 100 mg tablet RxNorm: 169712 1 Tablet(s) Oral every night at bedtime 2019 Inactive sertraline 100 mg tablet RxNorm: 075391 1 Tablet(s) Oral 2019 Inactive omeprazole 20 mg capsule,delayed release RxNorm: 762866 1 Capsule(s) Oral every day 2019 Inactive amoxicillin 250 mg capsule RxNorm: 513625 1 Capsule(s) Oral three times a day 2019 Inactive multivitamin with iron-mineral tablet RxNorm: 1 Tablet(s) Oral every day 2021 Inactive cetirizine 10 mg tablet RxNorm: 4521700 1 Tablet(s) PO daily 2019 Inactive This refill negates all other refills of this medication. Please do not auto refill Singulair 10 mg tablet RxNorm: 013484 1 Tablet(s) PO daily 2019 Inactive This refill negates all other refills of this medication gabapentin 300 mg capsule RxNorm: 083730 1 Capsule(s) PO TID 2019 Inactive lisinopril 2.5 mg tablet RxNorm: 347066 1 Tablet(s) PO daily 020 2019 Inactive levothyroxine 50 mcg tablet RxNorm: 708724 1 Tablet(s) PO daily 2019 Inactive This refill negates all other refills of this medication hydrochlorothiazide 25 mg tablet RxNorm: 962456 1 Tablet(s) Oral every day 020 2019 Inactive fenugreek seed extract 500 mg capsule RxNorm: 1 Capsule(s) Oral three times a day 2021 Inactive Alcohol Prep Pads RxNorm: 648038 1 Patch TOP QAM 2020 Inactive loperamide 2 mg tablet RxNorm: 011500 1 Tablet(s) Oral as needed take one [...] 2019 Inactive hydrochlorothiazide 25 mg tablet RxNorm: 300059 1 Tablet(s) Oral every day 2019 Inactive Sudafed 12 Hour 120 mg tablet,extended release RxNorm: 6767839 1 Tablet(s) Oral every 12 hours as needed 2018 Inactive omeprazole 20 mg capsule,delayed release RxNorm: 653619 1 Capsule(s) Oral every day 019 2019 Inactive Sudafed 12 Hour 120 mg tablet,extended release RxNorm: 1361241 1 Tablet(s) Oral every 12 hours as needed 019 2018 Inactive pantoprazole 40 mg tablet,delayed release RxNorm: 304548 1 Tablet(s) Oral every day 2018 Inactive discontinue any other H2Blkr. and PPI albuterol sulfate 2.5 mg/3 mL (0.083 %) solution for nebulization RxNorm: 343871 1 Vial Inhalation every four hours as needed as needed for dyspnea 2019 Inactive 60/box. This refill negates all other refills of this medication. Please do not fill early. Please do not auto refill. Symbicort 160 mcg-4.5 mcg/actuation HFA aerosol inhaler RxNorm: 6099132 2 Puff(s) INH BID No Stop Date Active Alcohol Prep Pads RxNorm: 104354 1 Patch TOP QAM 019 2019 Inactive Ventolin HFA 90 mcg/actuation aerosol inhaler RxNorm: 564329 2 Puff(s) INH QID 019 2019 Inactive Please do not fill early. Please do not auto refill. This refill negates all other refills of this medication True Metrix Glucose Test Strip RxNorm: 1 Test Strips Miscellaneous QAM 019 2019 Inactive 100/container atorvastatin 40 mg tablet RxNorm: 994956 1 Tablet(s) Oral every day 019 2019 Inactive buspirone 7.5 mg tablet RxNorm: 299426 1 Tablet(s) PO BID 019 2020 Inactive This refill negates all other refills of this medication hydrochlorothiazide 12.5 mg tablet RxNorm: 984085 1 Tablet(s) PO QAM 019 2019 Inactive levmetamfetamine 50 mg nasal inhaler RxNorm: 1 Unit(s) NASAL Q3-4H Do not use more than every 3 hours or 8 times/24hours 019 2021 Inactive Please do not auto refill. This refill negates all other refills of this medication Ventolin HFA 90 mcg/actuation aerosol inhaler RxNorm: 102179 2 Puff(s) INH QID 019 2018 Inactive Please do not fill early. Please do not auto refill. This refill negates all other refills of this medication Singulair 10 mg tablet RxNorm: 384019 1 Tablet(s) PO daily 019 2019 Inactive This refill negates all other refills of this medication cetirizine 10 mg tablet RxNorm: 5492338 1 Tablet(s) PO daily 019 2019 Inactive This refill negates all other refills of this medication. Please do not auto refill levothyroxine 50 mcg tablet RxNorm: 249652 1 Tablet(s) PO daily 019 2019 Inactive This refill negates all other refills of this medication diclofenac sodium 75 mg tablet,delayed release RxNorm: 935383 1 Tablet(s) PO BID 019 2019 Inactive This refill negates all other refills of this medication ranitidine 150 mg tablet RxNorm: 562715 1 Tablet(s) PO BID 019 2018 Inactive This refill negates all other refills of this medication Calcium 600-D3 Plus (mag-zinc) 600 mg calcium-800 unit-50 mg tablet RxNorm: 1 Tablet(s) PO daily take an additonal tablet for itching. 019 2018 Inactive This refill negates all other refills of this medication albuterol sulfate 2.5 mg/3 mL (0.083 %) solution for nebulization RxNorm: 282921 1 Vial INH QID 019 2018 Inactive 60/box. This refill negates all other refills of this medication. Please do not fill early. Please do not auto refill. lisinopril 2.5 mg tablet RxNorm: 711599 1 Tablet(s) PO daily 019 2019 Inactive gabapentin 300 mg capsule RxNorm: 942373 1 Capsule(s) PO TID 019 2019 Inactive atorvastatin 20 mg tablet RxNorm: 603482 1 Tablet(s) PO QHS 019 2018 Inactive This refill negates all other refills of this medication TRUEplus Lancets 30 gauge RxNorm: 1 Lancets Miscellaneous QAM 019 2018 Inactive 100/box gabapentin 300 mg capsule RxNorm: 550143 1 Capsule(s) PO TID 019 2018 Inactive Fl[place]maury Complete (iron) 18 mg iron chewable tablet RxNorm: 1 Tablet(s) PO daily 019 2021 Inactive This refill negates all other refills of this medication gabapentin 300 mg capsule RxNorm: 302463 1 Capsule(s) PO TID as needed 019 2018 Inactive True Metrix Glucose Test Strip RxNorm: 1 Test Strips Miscellaneous QAM 2018 Inactive 100/container Alcohol Prep Pads RxNorm: 148354 1 Patch TOP QAM 2018 Inactive TRUEplus Lancets 30 gauge RxNorm: 1 Lancets Miscellaneous QAM 2018 Inactive 100/box lisinopril 2.5 mg tablet RxNorm: 913887 1 Tablet(s) PO daily 2018 Inactive ranitidine 150 mg tablet RxNorm: 527939 1 Tablet(s) PO BID 019 2018 Inactive This refill negates all other refills of this medication albuterol sulfate 2.5 mg/3 mL (0.083 %) solution for nebulization RxNorm: 880081 1 Vial INH QID 019 2018 Inactive [...] this medication gabapentin 300 mg capsule RxNorm: 387233 1 Capsule(s) PO TID as needed 019 2018 Inactive atorvastatin 20 mg tablet RxNorm: 384609 1 Tablet(s) PO QHS 019 2018 Inactive This refill negates all other refills of this medication trazodone 50 mg tablet RxNorm: 221768 1 Tablet(s) PO QHS 019 2018 Inactive This refill negates all other refills of this medication Ventolin HFA 90 mcg/actuation aerosol inhaler RxNorm: 095223 2 Puff(s) INH QID 019 2018 Inactive Please do not fill early. Please do not auto refill. This refill negates all other refills of this medication Calcium 600-D3 Plus 600 mg calcium-800 unit-50 mg tablet RxNorm: 1 Tablet(s) PO daily take an additonal tablet for itching. 019 2018 Inactive This refill negates all other refills of this medication Singulair 10 mg tablet RxNorm: 604093 1 Tablet(s) PO daily 019 2018 Inactive This refill negates all other refills of this medication buspirone 7.5 mg tablet RxNorm: 964658 1 Tablet(s) PO BID 019 2018 Inactive This refill negates all other refills of this medication diclofenac sodium 75 mg tablet,delayed release RxNorm: 229282 1 Tablet(s) PO BID 019 2018 Inactive This refill negates all other refills of this medication hydrochlorothiazide 12.5 mg tablet RxNorm: 508008 1 Tablet(s) PO QAM 019 2018 Inactive metoprolol succinate ER 50 mg tablet,extended release 24 hr RxNorm: 495371 1 Tablet(s) PO daily 019 2018 Inactive This refill negates all other refills of this medication levothyroxine 50 mcg tablet RxNorm: 522391 1 Tablet(s) PO daily 019 2018 Inactive This refill negates all other refills of this medication cetirizine 10 mg tablet RxNorm: 1831537 1 Tablet(s) PO daily 019 2018 Inactive This refill negates all other refills of this medication. Please do not auto refill Flintstones Complete (iron) 18 mg iron chewable tablet RxNorm: 1 Tablet(s) PO daily 019 2018 Inactive This refill negates all other refills of this medication buspirone 7.5 mg tablet RxNorm: 885247 1 Tablet(s) PO BID 2018 Inactive cetirizine 10 mg tablet RxNorm: 9674740 1 Tablet(s) PO daily 018 2018 Inactive Guaiasorb DM 10 mg-100 mg/5 mL oral liquid RxNorm: 915538 10 Milliliter(s) PO As needed every 4 hr 2018 Inactive Vicks Vaporub 4.7 %-1.2 %-2.6 % topical ointment RxNorm: 8002720 1 Application TOP TID 2018 Inactive levmetamfetamine 50 mg nasal inhaler RxNorm: 1 Unit(s) NASAL Q3-4H 2017 Inactive sertraline 50 mg tablet RxNorm: 117499 1 Tablet(s) PO daily 2018 Inactive Please note dose trazodone 50 mg tablet RxNorm: 362625 1 Tablet(s) PO QHS 018 2018 Inactive sertraline 50 mg tablet RxNorm: 168997 1 Tablet(s) PO daily 018 2017 Inactive amoxicillin 500 mg tablet RxNorm: 566134 1 Tablet(s) PO Q12H 2017 Inactive albuterol sulfate 2.5 mg/3 mL (0.083 %) solution for nebulization RxNorm: 815259 1 Vial INH QID 2018 Inactive 60/box. Please do not fill early. Please do not auto refill. Prozac 10 mg capsule RxNorm: 157316 1 Capsule(s) PO daily 018 2017 Inactive buspirone 7.5 mg tablet RxNorm: 531639 1 Tablet(s) PO BID 018 2018 Inactive gabapentin 300 mg capsule RxNorm: 558597 1 Capsule(s) PO TID as needed 2018 Inactive hydrochlorothiazide 12.5 mg tablet RxNorm: 107684 1 Tablet(s) PO QAM 018 2018 Inactive ranitidine 150 mg tablet RxNorm: 973454 1 Tablet(s) PO BID 018 2018 Inactive Macrobid 100 mg capsule RxNorm: 671766 1 Capsule(s) PO Q12H 018 2017 Inactive Singulair 10 mg tablet RxNorm: 113316 1 Tablet(s) PO daily 018 2018 Inactive Ventolin HFA 90 mcg/actuation aerosol inhaler RxNorm: 8022398 2 Puff(s) INH QID 018 2018 Inactive Singulair 10 mg tablet RxNorm: 009898 1 Tablet(s) PO daily 018 2017 Inactive buspirone 7.5 mg tablet RxNorm: 647160 1 Tablet(s) PO BID 018 2017 Inactive Prozac 10 mg capsule RxNorm: 864539 1 Capsule(s) PO daily 018 2017 Inactive diclofenac sodium 75 mg tablet,delayed release RxNorm: 242209 1 Tablet(s) PO BID 018 2017 Inactive lisinopril 2.5 mg tablet RxNorm: 872993 1 Tablet(s) PO daily 018 2017 Inactive Neilmed Pediatric Sinus Rinse Refill packet RxNorm: 1 Unit Dose NASAL PRN 018 2021 Inactive metoprolol succinate ER 50 mg tablet,extended release 24 hr RxNorm: 576227 1 Tablet(s) PO daily 018 2017 Inactive levothyroxine 50 mcg tablet RxNorm: 378828 1 Tablet(s) PO daily 018 2017 Inactive TRUEplus Lancets 30 gauge RxNorm: 1 Lancets Miscellaneous QAM 018 2017 Inactive 100/box Ventolin HFA 90 mcg/actuation aerosol inhaler RxNorm: 219246 2 Puff(s) INH QID 018 2017 Inactive Aleve 220 mg capsule RxNorm: 6611228 1 Capsule(s) PO BID 018 2018 Inactive ranitidine 150 mg tablet RxNorm: 700662 1 Tablet(s) PO BID 018 2017 Inactive gabapentin 300 mg capsule RxNorm: 031833 1 Capsule(s) PO TID as needed 2017 Inactive atorvastatin 20 mg tablet RxNorm: 618217 1 Tablet(s) PO QHS 018 2017 Inactive True Metrix Glucose Test Strip RxNorm: 1 Test Strips Miscellaneous QAM 018 2017 Inactive 50/container Calcium 600-D3 Plus 600 mg calcium-800 unit-50 mg tablet RxNorm: 1 Tablet(s) PO daily take an additonal tablet for itching. 018 2017 Inactive hydrochlorothiazide 12.5 mg tablet RxNorm: 577704 1 Tablet(s) PO QAM 018 2017 Inactive Flintstones Complete (iron) 18 mg iron chewable tablet RxNorm: 1 Tablet(s) PO daily 018 2017 Inactive True Metrix Glucose Meter RxNorm: miscellaneous 019 2018 Inactive sertraline 50 mg tablet RxNorm: 881739 1 Tablet(s) PO daily 020 2019 Inactive loperamide 2 mg tablet RxNorm: 688729 oral 019 2018 Inactive d-mannose oral powder RxNorm: PO 018 2021 Inactive Symbicort 160 mcg-4.5 mcg/actuation HFA aerosol inhaler RxNorm: 1537648 2 Puff(s) INH BID 019 2018 Inactive Medication Administered No Medication Administered data Results Observation Observation Code Item Item Code Result Date S ervice Location CHEM 14 (METABOLIC PANEL) 47093 Glucose 2345-7 90 mg/dL 02/12/2022 [facility] [address] [place] [address] 53685PDXS 14 (METABOLIC PANEL)44884SYZ6378-447 mg/dL02/12/2022 [facility] [address] [place], [place] [address]FTWT 14 (METABOLIC PANEL)68348Uhjvagekmk6087-39.8 mg/dL02/12/2022 [facility] [address] [place] [address] 39344HBYV 14 (METABOLIC PANEL)15370CWZ/Creat Vobxh8574-968. [facility] [address] [place] [address] 33921IEKN 14 (METABOLIC PANEL)10448BYU Rpnsalomh28606-4237 mL/min/1.73m2 02/12/2022 [facility] [address] [place] [address] 31376RDWC 14 (METABOLIC PANEL)80260Nrsipl5135-9785 mmol/L02/12/2022 [facility] [address] [place] [address] 90361MXBI 14 (METABOLIC PANEL)13562Ftpanvpdy7329-64.0 mmol/L02/12/2022 [facility] [address] [place] [address] 09630GVYO 14 (METABOLIC PANEL)83543Guxmsflm0761-6437 mmol/L02/12/2022 [facility] [address] [place] [address] 36411ZAWC 14 (METABOLIC PANEL)95889Irobl KI49078-177 mmol/L02/12/2022 [facility] [address] [place] [address] 48298MIPU 14 (METABOLIC PANEL)82515Xpvgy Gly9891-693.0 mEq/L02/12/2022 [facility] [address] [place], [place] [address]HVYP 14 (METABOLIC PANEL)44989Yzcrwfjbqy Serum Mqbijjjpxv02008-0287 mOsm/kg02/12/2022 [facility] [address] [place] [address] 85614VQTY 14 (METABOLIC PANEL)62217Yyccseo59531-96.8 g/dL02/12/2022 [facility] [address] [place], [place] [address]FNXM 14 (METABOLIC PANEL)49107Vrvhu Qanzhni9504-61.4 g/dL02/12/2022 [facility] [address] [place], [place] [address]OCSV 14 (METABOLIC PANEL)50117Qutvdjhu2598-70.6 g/dL02/12/2022 [facility] [address] [place], [place] [address]CQOV 14 (METABOLIC PANEL)34702Eubjlke/Globulin Zcweg6497-85.1 02/12/2022 [facility] [address] [place], [place] [address]GQLC 14 (METABOLIC PANEL)67624OAV AVMC7533-431.00 U/L02/12/2022 [facility] [address] [place], [place] [address]XXCI 14 (METABOLIC PANEL)99385JAZL/TVN9293-539 U/L02/12/2022 [facility] [address] [place], [place] [address]TLPX 14 (METABOLIC PANEL)50391SJLZ/KUY8989-519 U/L02/12/2022 [facility] [address] [place], [place] [address]CBOX 14 (METABOLIC PANEL)06529Afbvt Jmtxhhvsl0374-80.4 mg/dL 02/12/2022 [facility] [address] [place], [place] [address]UBQF 14 (METABOLIC PANEL)01148Wyouegt26807-30.5 mg/dL02/12/2022 [facility] [address] [place], [place] [address]OYEI 14 (METABOLIC PANEL)30749Dppcdense Pzbbziu12686-89.8 mg/dL 02/12/2022 [facility] [address] [place], [place] [address]NRICNZ LDL - TFJT17561UWG-Dpqbbm64094-6523 mg/dL02/12/2022 [facility] [address] [place] [address] 56868J9Y-WOLFNKYNFQWFNEL0943-2Ghqve HGB D2D47022-43.6 %02/12/2022 [facility] [address] [place], [place] [address]T7G-KUVSUREJLWNAVUH3336-7fNM34178-2258 mg/dL02/12/2022 [facility] [address] [place] [address] Procedures Procedure Codes Date Annual Wellness Visit [...] Patient needs direct assistance, cuing, or supervision, toperform the following safely:/*No assistance, cuing, or supervision needed, Fall Risk Assessment/Two or more falls in the past year?/No, Fall Risk Assessment/Fall with injury in the past year?/No, Preventive Screening Schedule/Preventive schedule discussed and confirmed with pt and/or caregiver. Copy given.CPT-4: M7441Mzzuzya00/12/2022 Patient Health QuestionnaireCPT-4: DPHQ10/07/2021Frailty ScreeningCPT-4: SFD 05/20/2021HypertensionCPT-4: HTN04/01/2021Tobacco Assessment/ScreeningCPT-4: TCA 03/13/2021atient Health QuestionnaireCPT-4: DPHQ03/13/2021Mini Mental State ExamCPT-4: DMMA01/29/2021nnual Wellness Visit (Subsequent Visit)CPT-4: G0439 01/13/2021dvanced Care PlanningCPT-4: VACP01/13/2021[facility] [id number] CPT-4: DFRA01/13/2021emmes Fany AssessmentCPT-4: DSWA12/17/2020Urinalysis, dip stickCPT-4: 7449260Patient Health QuestionnaireCPT-4: DPHQ 08/19/2020ElectrocardiogramCPT-4: 252063405/14/2020Tobacco Assessment/Screening CPT-4: TCA01/01/2020Fall Risk AssessmentSNOMED CT: 655310892 CPT-4: DFRA01/01/2020Functional AssessmentCPT-4: DFA01/01/2020Semmes Fany AssessmentCPT-4: DSWA11/28/2019Patient Health QuestionnaireCPT-4: DPHQ11/28/2019 [place] Fany AssessmentCPT-4: DS10/17/2019HypertensionCPT-4: HTN10/17/[address]: 144355270 CPT-4: DFRA09/19/2019Functional AssessmentCPT-4: DFA111/20/2018Urinalysis, dip stickCPT-4: 3501820Tobacco Assessment/ScreeningCPT-4: TCA05/24/2019 Patient Health QuestionnaireCPT-4: DPHQ05/24/2019AHA/REBECCA Classification AssessmentCPT-4: DAHA04/25/2019Controlled Substance ReportCPT-4: CTRSU04/25/2019 Urinalysis, dip stickCPT-4: 959340803/28/2019Urinalysis, dip stickCPT-4: 89823 03/28/20192696N8M-NegvviegumppgwlIUR-9: 07932TjxputlN0I-SwhyxeehlyzincaSBA-4: 52393 HflcdapV0M-RvaudbugphadeniFBA-0: 45802PjqnevqP9R-SctzjhmoumtokfrSDS-1: 11364 LwzxbtvR8D-NmdzogjjoikbprlKZS-8: 50127RumjpwnH1Z-GgzniwzqmeyktyiPGQ-2: 36904 AhyclvmS5J-VjgrwpkmmiyxedtOWI-6: 62130GqxpiewE3V-QqnbznwhyilpdwuNYI-0: 56718 BcoxkxxW7B-KraodkhsaxquzxdUDG-7: 42463ZbhnmusEycugqtfpv ReferralSNOMED CT: 977123313 CPT-4: R87Frsdzos Vital Signs Date Vital 02/11/2022 Blood Pressure 1: 116/82 Code: 8480-6 BMI: 55.1 Code: 50585-7 Heart Rate 1: 90 bpm Height: 4'11 Code: 8302-2 Respiratory Rate: 18 bpm SpO2: 98% Temperature: 36.1 (C) / 97.0 (F) Weight: 272 lbs 12 oz Code: 50383-5 Reason For Visit Reason For Visit Effective Dates Notes diabetes mellitus 02/11/2022 hyperlipidemia disease 02/11/2022 Encounters Encounter Performer Location Location Address Codes Magdi e ([id number]) HOME VISIT EST CAESAR HUFF Diagnosis: Hypertension[ICD10: I10] Diagnosis: Type 2 diabetes mellitus with peripheral neuropathy[ICD10: E11.42] Diagnosis: Adult BMI 50.0-59.9 kg/sq m[ICD10: Z68.43] Diagnosis: Hyperlipidemia, mixed[ICD10: E78.2] Diagnosis: Obstructive sleep apnea (adult) (pediatric)[ICD10: G47.33] Diagnosis: Allergic rhinitis[ICD10: J30.9] Diagnosis: (Z00.00-V70.9) Encounter for general adult medical examination without abnormal findings[ICD10: Z00.00]Chivo Johnson [address] [place] [address] 21881NYH-5: [id number] Plan of Care Planned Activity Notes Codes Status Date Patient Education: Patient Medication Summary Rvuotccre56/12/2022atient Education: XnzsgdtmEehduwnks40/12/2022atient Education: AWV Preventative Screening Schedule 9106Zikilhtgm45/12/2022atient Education: [facility] Discount Card Patient Savings FdxwsfgCmkqafbad98/12/2022 Appointment: Mikey Nair WPtel: [address] [facility] OykrouRL23443 [id number]: Chivo Bishop WPtel: [address] [address] [id number]: Chivo Bishop WPtel: [phone] [place] [address] [id number]: Chivo Bishop WPtel: [phone] [place] [address] USETV111/11/2020ppointment: Chivo Bishop WPtel: [phone] [place] [address] USETV110/13/2020ppointment: Chivo Bishop WPtel: [phone] [place] [address] USETV1ppointment: Chivo Bishop WPtel: [address] [place] [address] TCJDYV4706/10/2021ppointment: Anna Culver WPtel: [address] [place] [address] USETV06/02/2021ppointment: Chivo Bishop WPtel: [phone] [place] [address] USETV05/20/2021ppointment: Anna Culver WPtel: [phone] [place] [address] USETV04/28/2021ppointment: Chivo Bishop WPtel: [phone] [place] [address] USETV04/15/2021ppointment: Anna Culver WPtel: [phone] [place] [address] [id number]: Anna Culver WPtel: [phone] [place] [address] USETV03/24/2021ppointment: Anna Culver WPtel: [phone] [place] [address] USETV06ppointment: Anna Culver WPtel: [phone] [place] [address] [id number]: Chivo Bishop WPtel: [phone] [place] [address] [id number]: Anna Culver WPtel: [phone] [place] [address] USETV04ppointment: Anna Culver WPtel: [phone] [place] [address] [id number]: Chivo Bishop WPtel: [phone] [place] [address] USETV11/28/2020ppointment: Anna Culver WPtel: [phone] [place] [address] USETV11/24/2020ppointment: Anna Culver WPtel: [phone] [place] [address] [id number]: Anna Culver WPtel: [phone] [place] [address] [id number]: Anna Culver WPtel: [phone] [place] [address] USETV110/26/2019Appointment: Anna Culver WPtel: [phone] [place] [address] USETV110/19/2019Appointment: Anna Culver WPtel: [phone] [place] [address] USETV1Appointment: Anna Culver WPtel: [phone] [place] [address] [address] [address] USETV10/03/2020Appointment: Vinnie Giannaalex [place]: [address] [facility] [address] [id number]: Anna Culver WPtel: [address] [place] [address] [id number]: Anna Culver WPtel: [phone] [place] [address] [id number]: Anna Culver WPtel: [address] [place] [address] [id number]: Anna Culver WPtel: [address] [place] [address] [id number]: Anna Culver WPtel: [address] [place] [address] [id number]: Anna Culver WPtel: [address] [place] [address] [id number]: Anna Culver WPtel: [address] [place] [address] [id number]: Anna Culver WPtel: [address] [place] [address] [id number]/Appointment: Anna Culver WPtel: [address] [place] [address] [id number]: Anna Culver WPtel: [phone] [place] [address] [id number]: Sudha Hernadez WPtel: [address] [facility] [address] YunelmWH[address] [id number]: Sudha Hernadez WPtel: [address] [facility] b IpsfrmLT01286 [id number]: Charlene Oropeza WPtel: [address] [facility] AgxjzzDR24876 [id number]: Enedelia Delgado45Appointment: Charlene Oropeza WPtel: [address] [facility] HphkebWF59085 [id number]: Daltonricht, Rasta WPtel: [address] [facility] TjaogjIH42467 [id number]: Haupricht, Rasta WPtel: [address] [facility] YewsdmJP91513 [id number]: Haupricht, Rasta WPtel: [address] [facility] MkteehBE61222 [id number]: Haupricht, Rasta WPtel: [address] [facility] OuohgeJM42831 [id number]: Pending Gynecology Referral InformationReferral ProcessedReferral: Pending Pulmonology Referral InformationReferralProcessed Referral: Pending Psychiatry Referral InformationReferralInitiatedReferral: Pending Respiratory Services Referral InformationReferralInitiatedReferral: Pending Ophthalmology Referral InformationReferralInitiatedReferral: [facility] WPtel: [address] USWriter placed a call out to the patient to notify her that it has been recommended that she be seenby 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 Patient agreed to be seen, does not have a provider of choice and no transportationissues. Flight Engineer Instructor faxed referral and clinical notes to [facility] in [place], [place] near the patient's home. Patient to [...] seen and prefers a provider in the [place] or [place] area. Flight Engineer Instructor placed a call out to everyone listed in the area and the only location that was able to accept the patient's insurance was [address] [address] and spoke with Maylin. Maylin asked that the patient's referral, face sheet and visit notes be faxed to . Flight Engineer Instructor faxed over requested documents. Patient appointment confirmation letter generated and mailed to her home address. Patient to call to schedule an appointment.ProcessedReferral: [facility] WPtel: [address] [place], [place] [id number] USPatient notified that it has been advised that she be seen by Neurology. Patient agreed to be seen and prefers to be seen by a provider in the [place], [place] area. Patient denies any concerns with transportation, and prefers to schedule her own appointment. Flight Engineer Instructor placed a call out to [facility] and spoke with Neeraj P: who confirmed that their office is able to acceptnew patients and the patient's insurance. After confirming the providers fax number, service writer advisor faxed over the patient's referral, and most [...]
--- OUTSIDE RECORDS SUMMARY | 2022-02-21 20:00 | XMS_ITS | CCD ---
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 Ethnic Origins Teacher Name Role Phone Palomo KING, Anna Primary Care Provider Unav ailable Unavailable Chronic Care Management Unavaila ble Summary Purpose DataExchange Insurance Providers Payer name Policy type / Coverage type Covered green party ID Effective Begin Date Effective End Date [facility] [id number] Unknown Unknown Family history Mother Diagnosis Age [...] 05/31/2018 Education level Unknown Some High School 10th05/31/20187649KmjolplxcaTwihwkkEzemzsngdu59/29/2018Tobacco historySNOMED CT: 822150922Pyz never smoked or chewed iuhdhil2305/31/2018Alcohol historySNOMED CT: 113463138Bjcrp drinks igafqtk4205/31/2018Has the patient ever used illegal drugs? UnknownHas never used illegal drugs05/31/2018DNR Order/ Advanced Directive UnknownFull Code05/31/2018 Allergies, Adverse Reactions, Alerts Substance Reaction Codes Entered Date Inactivated Date Status OxyContin itch, RxNorm: 775900 01/13/2021 No Inactive Da te Active *No known food allergies Rjdphfy3009/06/2018No Inactive DateActiveMethylprednisolonehivesRxNorm: 6902 09/06/2018No Inactive DateActive Problems Condition Codes Effective Dates Condition St atus (Z00.00-V70.9) Encounter for general adult medical examination without abnormal findings ICD-10: Z00.00 ICD-9: V70.90/ctiveAdult BMI 50.0-59.9 kg/sq mICD-10: Z68.43 ICD-9: V85.4308ActiveAllergic rhinitisICD-10: J30.9 ICD-9: 477.903/2ActiveHyperlipidemia, mixedICD-10: E78.2 ICD-9: 272.203/2ActiveHypertensionICD-10: I10 ICD-9: 401.903/2ActiveObstructive sleep apnea (adult) (pediatric)ICD-10: G47.33 ICD-9: 327.2309/ActiveType 2 diabetes mellitus with peripheral neuropathy ICD-10: E11.42 ICD-9: 250.6002ActiveAdjustment disorder with mixed anxiety and depressed moodICD-10: F43.23 ICD-9: 309.2812ActiveAsthmaICD-10: J45.909 ICD-9: 493.9011ActiveGERD (gastroesophageal reflux disease)ICD-10: K21.9 ICD-9: 530.8112ActiveEdema, unspecifiedICD-10: R60.9 ICD-9: 782.310/06/2018ActiveHypertensive heart diseaseICD-10: I11.9 [...] kidney disease, stage 2 (mild)ICD-10: N18.2 ICD-9: 585./esolvedCOVID-19 virus RNA test result positive at limit [...] examinationICD-10: Z01.810 ICD-9: V72.8106/InactiveHeadacheICD-10: R51 ICD-9: 784.001/10/2018InactiveOther senior care (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ICD-10: Z79.899 ICD-9: V58.6907/InactiveType 2 diabetes mellitus without complications ICD-10: E11.9 ICD-9: 250.0001/10/2018InactiveWheezingICD-10: R06.2 ICD-9: 786.0711/03/2018InactiveAbnormal urine findingICD-10: R82.90 ICD-9: 791.912/ResolvedAbrasion of toeICD-10: S90.416A ICD-9: 917.005/14/2020ResolvedPink eyeICD-10: H10.029 ICD-9: 372.0303ResolvedRight wrist painICD-10: M25.531 ICD-9: 719.4308ResolvedSinusitisICD-10: J32.9 ICD-9: 473.902/02/2020ResolvedSuperficial burn of multiple sites of right hand, subsequent encounterICD-10: T23.191D ICD-9: V58.8902/1ResolvedUrinary tract infectionICD-10: N39.0 ICD-9: 599.012/ResolvedPolyneuropathy, unspecifiedICD-10: G62.9 ICD-9: 356.908ActiveHypothyroidism, unspecifiedICD-10: E03.9 ICD-9: 244.912ActiveFecal incontinenceICD-10: R15.9 ICD-9: 787.6003ActiveMixed incontinenceICD-10: N39.46 ICD-9: 788.3308ActiveAbnormal electrocardiogram [ECG] [EKG]ICD-10: R94.31 ICD-9: 794.3108Active Medications Medication Codes Instructions Start Date Stop Date Status Fill Instructions levothyroxine 50 mcg tablet RxNorm: 130612 Take 1 Tablet(s) Oral every day 022 2021 Inactive atorvastatin 20 mg tablet RxNorm: 151097 Take 1 Tablet(s) Oral every night at bedtime 2021 Inactive This refill negates all other refills of this medication lisinopril 2.5 mg tablet RxNorm: 401181 Take 1 Tablet(s) Oral every day 2021 Inactive gabapentin 300 mg capsule RxNorm: 909814 Take 1 Capsule(s) Oral three times a day 022 2021 Inactive montelukast 10 mg tablet RxNorm: 082281 Take 1 Tablet(s) Oral every day 022 2021 Inactive cholecalciferol (vitamin D3) 50 mcg (2,000 unit) tablet RxNorm: 315191 Take 1 Tablet(s) Oral every day 2022 Inactive Myrbetriq 50 mg tablet,extended release RxNorm: 5319081 1 Tablet(s) Oral every day No Stop Date Active Ozempic 0.25 mg or 0.5 mg (2 mg/1.5 mL) subcutaneous pen injector RxNorm: 7973875 inject 0.5 milligrams subcutaneously every week 2021 Inactive Ozempic 0.25 mg or 0.5 mg (2 mg/1.5 mL) subcutaneous pen injector RxNorm: 4446041 Take 0.5 Capsule(s) Injection once a week 2021 Inactive omeprazole 20 mg capsule,delayed release RxNorm: 080532 Take 1 Capsule(s) Oral every evening 2020 Inactive Ozempic 0.25 mg or 0.5 mg (2 mg/1.5 mL) subcutaneous pen injector RxNorm: 6445640 Take 0.25 Milligram(s) Subcutaneous once a week 2021 Inactive Easy Touch Alcohol Prep Pads RxNorm: 323933 USE DIRECTED EACH MORNING 2021 Inactive Probiotic 10 billion cell capsule RxNorm: 5179891 Take 1 Capsule(s) Oral every day 2021 Inactive levothyroxine 50 mcg tablet RxNorm: 776724 Take 1 Tablet(s) Oral every day 2020 Inactive Acid [employer] Intern (famotidine) 20 mg tablet RxNorm: 489365 Take 1 Tablet(s) Oral every morning 2020 Inactive Heartburn Relief (famotidine) 10 mg tablet RxNorm: 748708 Take 1 Tablet(s) Oral QAM 2020 Inactive levothyroxine 50 mcg tablet RxNorm: 799777 Take 1 Tablet(s) Oral QD 2020 Inactive Singulair 10 mg tablet RxNorm: 305985 TAKE (1) TABLET BY MOUTH DAILY 021 2020 Inactive metformin 1,000 mg tablet RxNorm: 281162 1 Tablet(s) Oral two times a day 021 2021 Inactive lisinopril 2.5 mg tablet RxNorm: 472807 Take 1 Tablet(s) Oral every day 021 2020 Inactive hydrochlorothiazide 25 mg tablet RxNorm: 940072 Take 1 Tablet(s) Oral every day 021 2020 Inactive ondansetron 4 mg disintegrating tablet RxNorm: 039925 1 Tablet(s) Oral two times a day 021 2020 Inactive Sudafed 12 Hour 120 mg tablet,extended release RxNorm: 2259611 TAKE 1 TABLET BY MOUTH EVERY 12 HOURS NEEDED 2021 Inactive Heartburn Relief (famotidine) 10 mg tablet RxNorm: 881674 Take 1 Tablet(s) Oral every morning 021 2020 Inactive omeprazole 20 mg capsule,delayed release RxNorm: 282167 1 Capsule(s) Oral every evening 021 2020 Inactive sertraline 100 mg tablet RxNorm: 879287 2 Tablet(s) Oral every day 021 2020 Inactive levothyroxine 50 mcg tablet RxNorm: 728919 TAKE (1) TABLET BY MOUTH DAILY 021 2020 Inactive metformin 500 mg tablet RxNorm: 269790 1 Tablet(s) Oral two times a day take with 500mg to equal 1000mg 021 2020 Inactive gabapentin 300 mg capsule RxNorm: 153166 TAKE 1 CAPSULE BY MOUTH THREE TIMES A DAY 021 2020 Inactive lisinopril 2.5 mg tablet RxNorm: 283205 TAKE 1 TABLET BY MOUTH DAILY 021 2020 Inactive gabapentin 300 mg capsule RxNorm: 754739 TAKE 1 CAPSULE BY MOUTH THREE TIMES A DAY 021 2020 Inactive Singulair 10 mg tablet RxNorm: 809000 TAKE (1) TABLET BY MOUTH DAILY 021 2020 Inactive metformin 1,000 mg tablet RxNorm: 940291 1 Tablet(s) Oral two times a day 021 2020 Inactive atorvastatin 40 mg tablet RxNorm: 487720 1 Tablet(s) Oral every day 021 2020 Inactive omeprazole 20 mg capsule,delayed release RxNorm: 516096 1 Capsule(s) Oral every evening 021 2020 Inactive famotidine 10 mg tablet RxNorm: 605948 1 Tablet(s) Oral every morning 021 2020 Inactive Alcohol Prep Pads RxNorm: 811340 USE EACH MORNING 021 2020 Inactive omeprazole 20 mg capsule,delayed release RxNorm: 356321 1 Capsule(s) Oral two times a day 2021 Inactive omeprazole 20 mg capsule,delayed release RxNorm: 162884 TAKE 1 CAPSULE BY MOUTH EVERY DAY 2021 Inactive Macrobid 100 mg capsule RxNorm: 244787 1 Capsule(s) Oral every 12 hours with food 2020 Inactive omeprazole 20 mg capsule,delayed release RxNorm: 617508 1 Capsule(s) Oral two times a day 2021 Inactive metformin 1,000 mg tablet RxNorm: 507212 1 Tablet(s) Oral two times a day 2020 Inactive start on September 11, 2020 metformin 500 mg tablet RxNorm: 231447 1 Tablet(s) Oral two times a day take with 500mg to equal 1000mg 2019 Inactive gabapentin 300 mg capsule RxNorm: 454104 TAKE 1 CAPSULE BY MOUTH THREE TIMES DAILY 2020 Inactive cetirizine 10 mg tablet RxNorm: 8352919 TAKE (1) TABLET BY MOUTH DAILY 2020 Inactive metformin 500 mg tablet RxNorm: 134951 1 Tablet(s) Oral two times a day 020 2019 Inactive loperamide 2 mg tablet RxNorm: 675251 1 Tablet(s) Oral as needed take one tablet after each loose stool, maximum of 8 tablets in 24 hours 020 2021 Inactive Sudafed 12 Hour 120 mg tablet,extended release RxNorm: 8747983 TAKE 1 TABLET BY MOUTH EVERY 12 HOURS NEEDED 020 2019 Inactive hydrochlorothiazide 25 mg tablet RxNorm: 964885 TAKE (1) TABLET BY MOUTH EVERY DAY 020 2019 Inactive omeprazole 20 mg capsule,delayed release RxNorm: 913479 TAKE 1 CAPSULE BY MOUTH EVERY DAY 020 2020 Inactive metformin 500 mg tablet RxNorm: 706362 1 Tablet(s) Oral every day 020 2019 Inactive True Metrix Glucose Test Strip RxNorm: 1 Test Strips Miscellaneous two times a day as needed No Stop Date Active metformin 500 mg tablet RxNorm: 388687 1 Tablet(s) Oral every day 020 2019 Inactive diclofenac sodium 75 mg tablet,delayed release RxNorm: 659964 1 Tablet(s) PO BID 020 2021 Inactive This refill negates all other refills of this medication Sudafed 12 Hour 120 mg tablet,extended release RxNorm: 4801135 TAKE 1 TABLET BY MOUTH EVERY 12 HOURS NEEDED 020 2019 Inactive True Metrix Glucose Test Strip RxNorm: 1 Test Strips Miscellaneous every morning 020 2019 Inactive 100/container True Metrix Glucose Test Strip RxNorm: 1 Test Strips Miscellaneous [facility] 020 2019 Inactive 100/container loperamide 2 mg tablet RxNorm: 603882 1 Tablet(s) Oral as needed take one tablet after each loose stool, maximum of 8 tablets in 24 hours 020 2019 Inactive cetirizine 10 mg tablet RxNorm: 1944288 1 Tablet(s) PO daily 2019 Inactive loperamide 2 mg tablet RxNorm: 619162 1 Tablet(s) Oral as needed take one tablet after each loose stool, maximum of 8 tablets in 24 hours 2019 Inactive quetiapine 100 mg tablet RxNorm: 700439 1 Tablet(s) Oral every night at bedtime 2019 Inactive levothyroxine 50 mcg tablet RxNorm: 262477 1 Tablet(s) PO daily 2020 Inactive gabapentin 300 mg capsule RxNorm: 285285 1 Capsule(s) PO TID 2019 Inactive levothyroxine 50 mcg tablet RxNorm: 991557 1 Tablet(s) PO daily 2019 Inactive lisinopril 2.5 mg tablet RxNorm: 534139 1 Tablet(s) PO daily 2020 Inactive gabapentin 300 mg capsule RxNorm: 227382 1 Capsule(s) PO TID 2019 Inactive cetirizine 10 mg tablet RxNorm: 5702655 1 Tablet(s) PO daily 2019 Inactive Singulair 10 mg tablet RxNorm: 952808 1 Tablet(s) PO daily 2020 Inactive gentamicin 0.3 % eye drops RxNorm: 305137 1 Drop(s) ophthalmic (eye) four times a day 2019 Inactive gentamicin 0.3 % eye drops RxNorm: 889047 1 Drop(s) ophthalmic (eye) four times a day 2019 Inactive gentamicin 0.3 % eye drops RxNorm: 189771 1 Drop(s) ophthalmic (eye) four times a day 2019 Inactive hydrochlorothiazide 25 mg tablet RxNorm: 585264 1 Tablet(s) Oral every day 2019 Inactive Sudafed 12 Hour 120 mg tablet,extended release RxNorm: 9946158 TAKE (1) TABLET BY MOUTH EVERY 12 HOURS NEEDED 2019 Inactive loperamide 2 mg tablet RxNorm: 138349 1 Tablet(s) Oral as needed take one tablet after each loose stool, maximum of 8 tablets in 24 hours 020 2019 Inactive loperamide 2 mg tablet RxNorm: 734391 1 Tablet(s) Oral as needed take one tablet after each loose stool, maximum of 8 tablets in 24 hours 020 2019 Inactive atorvastatin 40 mg tablet RxNorm: 586661 1 Tablet(s) Oral every day 2020 Inactive quetiapine 100 mg tablet RxNorm: 465002 1 Tablet(s) Oral every night at bedtime 2019 Inactive sertraline 100 mg tablet RxNorm: 902616 1 Tablet(s) Oral 2019 Inactive omeprazole 20 mg capsule,delayed release RxNorm: 411985 1 Capsule(s) Oral every day 2019 Inactive amoxicillin 250 mg capsule RxNorm: 485178 1 Capsule(s) Oral three times a day 2019 Inactive multivitamin with iron-mineral tablet RxNorm: 1 Tablet(s) Oral every day 2021 Inactive cetirizine 10 mg tablet RxNorm: 7105174 1 Tablet(s) PO daily 2019 Inactive This refill negates all other refills of this medication. Please do not auto refill Singulair 10 mg tablet RxNorm: 160429 1 Tablet(s) PO daily 2019 Inactive This refill negates all other refills of this medication gabapentin 300 mg capsule RxNorm: 841854 1 Capsule(s) PO TID 2019 Inactive lisinopril 2.5 mg tablet RxNorm: 974115 1 Tablet(s) PO daily 020 2019 Inactive levothyroxine 50 mcg tablet RxNorm: 875670 1 Tablet(s) PO daily 2019 Inactive This refill negates all other refills of this medication hydrochlorothiazide 25 mg tablet RxNorm: 922510 1 Tablet(s) Oral every day 2019 Inactive fenugreek seed extract 500 mg capsule RxNorm: 1 Capsule(s) Oral three times a day 2021 Inactive Alcohol Prep Pads RxNorm: 485443 1 Patch TOP QAM 2020 Inactive loperamide 2 mg tablet RxNorm: 648858 1 Tablet(s) Oral as needed take one [...] 2019 Inactive hydrochlorothiazide 25 mg tablet RxNorm: 407642 1 Tablet(s) Oral every day 2019 Inactive Sudafed 12 Hour 120 mg tablet,extended release RxNorm: 1398479 1 Tablet(s) Oral every 12 hours as needed 2018 Inactive omeprazole 20 mg capsule,delayed release RxNorm: 629397 1 Capsule(s) Oral every day 019 2019 Inactive Sudafed 12 Hour 120 mg tablet,extended release RxNorm: 1223622 1 Tablet(s) Oral every 12 hours as needed 019 2018 Inactive pantoprazole 40 mg tablet,delayed release RxNorm: 639524 1 Tablet(s) Oral every day 2018 Inactive discontinue any other H2Blkr. and PPI albuterol sulfate 2.5 mg/3 mL (0.083 %) solution for nebulization RxNorm: 508908 1 Vial Inhalation every four hours as needed as needed for dyspnea 019 2019 Inactive 60/box. This refill negates all other refills of this medication. Please do not fill early. Please do not auto refill. Symbicort 160 mcg-4.5 mcg/actuation HFA aerosol inhaler RxNorm: 0239070 2 Puff(s) INH BID No Stop Date Active Alcohol Prep Pads RxNorm: 475146 1 Patch TOP QAM 019 2019 Inactive Ventolin HFA 90 mcg/actuation aerosol inhaler RxNorm: 220839 2 Puff(s) INH QID 019 2019 Inactive Please do not fill early. Please do not auto refill. This refill negates all other refills of this medication True Metrix Glucose Test Strip RxNorm: 1 Test Strips Miscellaneous QAM 019 2019 Inactive 100/container atorvastatin 40 mg tablet RxNorm: 247840 1 Tablet(s) Oral every day 019 2019 Inactive buspirone 7.5 mg tablet RxNorm: 634399 1 Tablet(s) PO BID 019 2020 Inactive This refill negates all other refills of this medication hydrochlorothiazide 12.5 mg tablet RxNorm: 107780 1 Tablet(s) PO QAM 019 2019 Inactive levmetamfetamine 50 mg nasal inhaler RxNorm: 1 Unit(s) NASAL Q3-4H Do not use more than every 3 hours or 8 times/24hours 019 2021 Inactive Please do not auto refill. This refill negates all other refills of this medication Ventolin HFA 90 mcg/actuation aerosol inhaler RxNorm: 632609 2 Puff(s) INH QID 019 2018 Inactive Please do not fill early. Please do not auto refill. This refill negates all other refills of this medication Singulair 10 mg tablet RxNorm: 658323 1 Tablet(s) PO daily 019 2019 Inactive This refill negates all other refills of this medication cetirizine 10 mg tablet RxNorm: 6255963 1 Tablet(s) PO daily 019 2019 Inactive This refill negates all other refills of this medication. Please do not auto refill levothyroxine 50 mcg tablet RxNorm: 941005 1 Tablet(s) PO daily 019 2019 Inactive This refill negates all other refills of this medication diclofenac sodium 75 mg tablet,delayed release RxNorm: 872487 1 Tablet(s) PO BID 019 2019 Inactive This refill negates all other refills of this medication ranitidine 150 mg tablet RxNorm: 815461 1 Tablet(s) PO BID 019 2018 Inactive This refill negates all other refills of this medication Calcium 600-D3 Plus (mag-zinc) 600 mg calcium-800 unit-50 mg tablet RxNorm: 1 Tablet(s) PO daily take an additonal tablet for itching. 2018 Inactive This refill negates all other refills of this medication albuterol sulfate 2.5 mg/3 mL (0.083 %) solution for nebulization RxNorm: 600130 1 Vial INH QID 2018 Inactive 60/box. This refill negates all other refills of this medication. Please do not fill early. Please do not auto refill. lisinopril 2.5 mg tablet RxNorm: 839928 1 Tablet(s) PO daily 019 2019 Inactive gabapentin 300 mg capsule RxNorm: 460667 1 Capsule(s) PO TID 019 2019 Inactive atorvastatin 20 mg tablet RxNorm: 696392 1 Tablet(s) PO QHS 019 2018 Inactive This refill negates all other refills of this medication TRUEplus Lancets 30 gauge RxNorm: 1 Lancets Miscellaneous QAM 082018 Inactive 100/box gabapentin 300 mg capsule RxNorm: 891636 1 Capsule(s) PO TID 2018 Inactive Flintsmaury Complete (iron) 18 mg iron chewable tablet RxNorm: 1 Tablet(s) PO daily 019 2021 Inactive This refill negates all other refills of this medication gabapentin 300 mg capsule RxNorm: 075665 1 Capsule(s) PO TID as needed 2018 Inactive True Metrix Glucose Test Strip RxNorm: 1 Test Strips Miscellaneous QAM 2018 Inactive 100/container Alcohol Prep Pads RxNorm: 344039 1 Patch TOP QAM 2018 Inactive TRUEplus Lancets 30 gauge RxNorm: 1 Lancets Miscellaneous QAM 2018 Inactive 100/box lisinopril 2.5 mg tablet RxNorm: 502554 1 Tablet(s) PO daily 2018 Inactive ranitidine 150 mg tablet RxNorm: 549524 1 Tablet(s) PO BID 2018 Inactive This refill negates all other refills of this medication albuterol sulfate 2.5 mg/3 mL (0.083 %) solution for nebulization RxNorm: 585732 1 Vial INH QID 2018 Inactive 60/box. This refill negates all other refills of this medication. Please do not fill early. Please do not auto refill. levmetamfetamine 50 mg nasal inhaler RxNorm: 1 Unit(s) NASAL Q3-4H Do not use more than every 3 hours or 8 times/24hours 2018 Inactive Please do not auto refill. This refill negates all other refills of this medication gabapentin 300 mg capsule RxNorm: 731814 1 Capsule(s) PO TID as needed 019 2018 Inactive atorvastatin 20 mg tablet RxNorm: 924642 1 Tablet(s) PO QHS 2018 Inactive This refill negates all other refills of this medication trazodone 50 mg tablet RxNorm: 810171 1 Tablet(s) PO QHS 019 2018 Inactive This refill negates all other refills of this medication Ventolin HFA 90 mcg/actuation aerosol inhaler RxNorm: 018466 2 Puff(s) INH QID 019 2018 Inactive Please do not fill early. Please do not auto refill. This refill negates all other refills of this medication Calcium 600-D3 Plus 600 mg calcium-800 unit-50 mg tablet RxNorm: 1 Tablet(s) PO daily take an additonal tablet for itching. 019 2018 Inactive This refill negates all other refills of this medication Singulair 10 mg tablet RxNorm: 943572 1 Tablet(s) PO daily 019 2018 Inactive This refill negates all other refills of this medication buspirone 7.5 mg tablet RxNorm: 813626 1 Tablet(s) PO BID 019 2018 Inactive This refill negates all other refills of this medication diclofenac sodium 75 mg tablet,delayed release RxNorm: 215004 1 Tablet(s) PO BID 019 2018 Inactive This refill negates all other refills of this medication hydrochlorothiazide 12.5 mg tablet RxNorm: 129715 1 Tablet(s) PO QAM 019 2018 Inactive metoprolol succinate ER 50 mg tablet,extended release 24 hr RxNorm: 737499 1 Tablet(s) PO daily 019 2018 Inactive This refill negates all other refills of this medication levothyroxine 50 mcg tablet RxNorm: 336118 1 Tablet(s) PO daily 019 2018 Inactive This refill negates all other refills of this medication cetirizine 10 mg tablet RxNorm: 1375301 1 Tablet(s) PO daily 019 2018 Inactive This refill negates all other refills of this medication. Please do not auto refill Flintstones Complete (iron) 18 mg iron chewable tablet RxNorm: 1 Tablet(s) PO daily 2018 Inactive This refill negates all other refills of this medication buspirone 7.5 mg tablet RxNorm: 459125 1 Tablet(s) PO BID 2018 Inactive cetirizine 10 mg tablet RxNorm: 7283135 1 Tablet(s) PO daily 2018 Inactive Guaiasorb DM 10 mg-100 mg/5 mL oral liquid RxNorm: 761917 10 Milliliter(s) PO As needed every 4 hr 2018 Inactive Vicks Vaporub 4.7 %-1.2 %-2.6 % topical ointment RxNorm: 9965042 1 Application TOP TID 2018 Inactive levmetamfetamine 50 mg nasal inhaler RxNorm: 1 Unit(s) NASAL Q3-4H 2017 Inactive sertraline 50 mg tablet RxNorm: 935500 1 Tablet(s) PO daily 2018 Inactive Please note dose trazodone 50 mg tablet RxNorm: 032956 1 Tablet(s) PO QHS 018 2018 Inactive sertraline 50 mg tablet RxNorm: 493262 1 Tablet(s) PO daily 2017 Inactive amoxicillin 500 mg tablet RxNorm: 056965 1 Tablet(s) PO Q12H 2017 Inactive albuterol sulfate 2.5 mg/3 mL (0.083 %) solution for nebulization RxNorm: 728549 1 Vial INH QID 2018 Inactive 60/box. Please do not fill early. Please do not auto refill. Prozac 10 mg capsule RxNorm: 206317 1 Capsule(s) PO daily 018 2017 Inactive buspirone 7.5 mg tablet RxNorm: 747644 1 Tablet(s) PO BID 018 2018 Inactive gabapentin 300 mg capsule RxNorm: 735351 1 Capsule(s) PO TID as needed 2018 Inactive hydrochlorothiazide 12.5 mg tablet RxNorm: 720628 1 Tablet(s) PO QAM 018 2018 Inactive ranitidine 150 mg tablet RxNorm: 327223 1 Tablet(s) PO BID 018 2018 Inactive Macrobid 100 mg capsule RxNorm: 712148 1 Capsule(s) PO Q12H 018 2017 Inactive Singulair 10 mg tablet RxNorm: 531851 1 Tablet(s) PO daily 018 2018 Inactive Ventolin HFA 90 mcg/actuation aerosol inhaler RxNorm: 9282280 2 Puff(s) INH QID 018 2018 Inactive Singulair 10 mg tablet RxNorm: 027850 1 Tablet(s) PO daily 018 2017 Inactive buspirone 7.5 mg tablet RxNorm: 190441 1 Tablet(s) PO BID 018 2017 Inactive Prozac 10 mg capsule RxNorm: 558386 1 Capsule(s) PO daily 018 2017 Inactive diclofenac sodium 75 mg tablet,delayed release RxNorm: 664656 1 Tablet(s) PO BID 018 2017 Inactive lisinopril 2.5 mg tablet RxNorm: 385122 1 Tablet(s) PO daily 018 2017 Inactive Neilmed Pediatric Sinus Rinse Refill packet RxNorm: 1 Unit Dose NASAL PRN 018 2021 Inactive metoprolol succinate ER 50 mg tablet,extended release 24 hr RxNorm: 464613 1 Tablet(s) PO daily 018 2017 Inactive levothyroxine 50 mcg tablet RxNorm: 499983 1 Tablet(s) PO daily 018 2017 Inactive TRUEplus Lancets 30 gauge RxNorm: 1 Lancets Miscellaneous QAM 018 2017 Inactive 100/box Ventolin HFA 90 mcg/actuation aerosol inhaler RxNorm: 518454 2 Puff(s) INH QID 018 2017 Inactive Aleve 220 mg capsule RxNorm: 0211897 1 Capsule(s) PO BID 018 2018 Inactive ranitidine 150 mg tablet RxNorm: 328922 1 Tablet(s) PO BID 018 2017 Inactive gabapentin 300 mg capsule RxNorm: 441499 1 Capsule(s) PO TID as needed 018 2017 Inactive atorvastatin 20 mg tablet RxNorm: 763191 1 Tablet(s) PO QHS 018 2017 Inactive True Metrix Glucose Test Strip RxNorm: 1 Test Strips Miscellaneous QAM 018 2017 Inactive 50/container Calcium 600-D3 Plus 600 mg calcium-800 unit-50 mg tablet RxNorm: 1 Tablet(s) PO daily take an additonal tablet for itching. 018 2017 Inactive hydrochlorothiazide 12.5 mg tablet RxNorm: 692474 1 Tablet(s) PO QAM 018 2017 Inactive Flintstones Complete (iron) 18 mg iron chewable tablet RxNorm: 1 Tablet(s) PO daily 018 2017 Inactive True Metrix Glucose Meter RxNorm: miscellaneous 019 2018 Inactive sertraline 50 mg tablet RxNorm: 300932 1 Tablet(s) PO daily 020 2019 Inactive loperamide 2 mg tablet RxNorm: 785740 oral 019 2018 Inactive d-mannose oral powder RxNorm: PO 018 2021 Inactive Symbicort 160 mcg-4.5 mcg/actuation HFA aerosol inhaler RxNorm: 0415588 2 Puff(s) INH BID 019 2018 Inactive [...] CPT-4: VACP Fall Risk Assessment SNOMED CT: 99165686 4 CPT-4: DFRA01/13/2021emmes Fany AssessmentCPT-4: DSWA12/17/2020Urinalysis, dip stickCPT-4: 921625609/24/2020Patient Health QuestionnaireCPT-4: DPHQ 08/19/2020ElectrocardiogramCPT-4: 122626205/14/2020Tobacco Assessment/Screening CPT-4: TCA01/01/2020Fall Risk AssessmentSNOMED CT: 126020004 CPT-4: DFRA01/01/2020Functional AssessmentCPT-4: DFA01/01/2020Semmes Fany AssessmentCPT-4: DSWA11/28/2019Patient Health QuestionnaireCPT-4: DPHQ11/28/2019 [place] Fany AssessmentCPT-4: DSWA10/17/2019HypertensionCPT-4: HTN10/17/[address]: 886919320 CPT-4: DFRA09/19/2019Functional AssessmentCPT-4: DFA111/20/2018Urinalysis, dip stickCPT-4: 6969970Tobacco Assessment/ScreeningCPT-4: TCA05/24/2019 Patient Health QuestionnaireCPT-4: DPHQ05/24/2019AHA/REBECCA Classification AssessmentCPT-4: DAHA04/25/2019Controlled Substance ReportCPT-4: CTRSU04/25/2019 Urinalysis, dip stickCPT-4: 022636903/28/2019Urinalysis, dip stickCPT-4: 30496 03/28/20193854Q2O-JdqlxspwulkppuvFGO-1: 14409XwsmnvrC6M-JnzikqrhumtfobhERU-2: 84983 YcywzigE2T-AzqosrboqypmupbWWB-5: 67927YslvlkyB9K-OscjjfghpetxluiBCH-0: 11554 KtenvccA6Q-IipuedgpkkrqmylCFI-9: 25535FmhiwubG2Z-HbnlaylwymutlxsCTN-4: 51639 MoibulpP0M-TsldtinzqytotcbLAM-4: 53868StxrimgM4R-IgrrtgvivmlzgctQKV-4: 47667 YhqffowA8T-ZhgxrjqzlmuxbjyHZT-9: 63301QebidctPwshhyhoxk ReferralSNOMED CT: [id number] CPT-4: [id number] Reason For Visit No Reason For Visit data Plan of Care Planned Activity Notes Codes Status Date Referral: Pending Gynecology Referral Informatio n Referral ProcessedReferral: Pending Pulmonology Referral InformationReferralProcessed Referral: Pending Psychiatry Referral InformationReferralInitiatedReferral: Pending Respiratory Services Referral InformationReferralInitiatedReferral: Pending Ophthalmology Referral InformationReferralInitiatedReferral: [facility] WPtel: [address] [place], [place] [phone] USWriter placed a call out to the patient to notify her that it has been recommended that she be seenby 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 Patient agreed to be seen, does not have a provider of choice and no transportationissues. Vice Provost faxed referral and clinical notes to [facility] in [place], [place] near the patient's home. Patient to [...] seen and prefers a provider in the [place] or [facility]. Vice Provost placed a call out to everyone listed in the area and the only location that was able to accept the patient's insurance was [facility] [address] [place] [address] and spoke with Maylin. Maylin asked that the patient's referral, face sheet and visit notes be faxed to . Vice Provost faxed over requested documents. Patient appointment confirmation letter generated and mailed to her home address. Patient to call to schedule an appointment.ProcessedReferral: [facility] WPtel: [address] [id number] USPatient notified that it has been advised that she be seen by Neurology. Patient agreed to be seen and prefers to be seen by a provider in the [place], [place] area. Patient denies any concerns with transportation, and prefers to schedule her own appointment. Vice Provost placed a call out to [facility] and spoke with Neeraj Mcfarland: who confirmed that their office is able to acceptnew patients and the patient's insurance. After confirming the providers fax number, health underwriter faxed over the patient's referral, and [...]
--- OUTSIDE RECORDS SUMMARY | 2022-04-02 20:00 | XMS_ITS | CCD ---
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 Institution Librarian Name Role Phone Palomo KING, Anna Primary Care Provider Unav ailable Unavailable Chronic Care Management Unavaila ble Summary Purpose DataExchange Insurance Providers Payer name Policy type / Coverage type Covered alliance party ID Effective Begin Date Effective End Date [facility] [id number] Unknown Unknown Family history Mother Diagnosis Age [...] 05/31/2018 Education level Unknown Some High School 10th05/31/20189076UvweotlphrRpjqtvvDoajdqadbg31/29/2018Tobacco historySNOMED CT: 192371697Tyu never smoked or chewed lvbnaax9105/31/2018Alcohol historySNOMED CT: 768721525Rwial drinks dwyrdxl7305/31/2018Has the patient ever used illegal drugs? UnknownHas never used illegal drugs05/31/2018DNR Order/ Advanced Directive UnknownFull Code05/31/2018 Allergies, Adverse Reactions, Alerts Substance Reaction Codes Entered Date Inactivated Date Status OxyContin itch, RxNorm: 753671 01/13/2021 No Inactive Da te Active *No known food allergies Ippdevj5009/06/2018No Inactive DateActiveMethylprednisolonehivesRxNorm: 6902 09/06/2018No Inactive DateActive Problems [...] examinationICD-10: Z01.810 ICD-9: V72.8106/InactiveHeadacheICD-10: R51 ICD-9: 784.001/10/2018InactiveOther alf (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ICD-10: Z79.899 ICD-9: V58.6907/InactiveType 2 diabetes mellitus without complications ICD-10: E11.9 ICD-9: 250.0001/10/2018InactiveWheezingICD-10: R06.2 ICD-9: 786.0711/03/2018InactiveAbnormal urine findingICD-10: R82.90 ICD-9: 791.912/ResolvedAbrasion of toeICD-10: S90.416A ICD-9: 917.005/14/2020ResolvedPink eyeICD-10: H10.029 ICD-9: 372.0303/ResolvedRight wrist painICD-10: M25.531 [...] (2 mg/1.5 mL) subcutaneous pen injector RxNorm: 4845101 INJECT 0.5 MGS SUBCUTANEOUSLY EVERY WEEK 022 2021 Inactive omeprazole 20 mg capsule,delayed release RxNorm: 533610 Take 1 Capsule(s) Oral every evening 022 2021 Inactive levothyroxine 50 mcg tablet RxNorm: 136840 Take 1 Tablet(s) Oral every day 022 2021 Inactive atorvastatin 20 mg tablet RxNorm: 730658 Take 1 Tablet(s) Oral every night at bedtime 022 2021 Inactive This refill negates all other refills of this medication lisinopril 2.5 mg tablet RxNorm: 477878 Take 1 Tablet(s) Oral every day 2021 Inactive gabapentin 300 mg capsule RxNorm: 435961 Take 1 Capsule(s) Oral three times a day 2021 Inactive montelukast 10 mg tablet RxNorm: 869421 Take 1 Tablet(s) Oral every day 022 2021 Inactive cholecalciferol (vitamin D3) 50 mcg (2,000 unit) tablet RxNorm: 455803 Take 1 Tablet(s) Oral every day 2022 Inactive Myrbetriq 50 mg tablet,extended release RxNorm: 1160363 1 Tablet(s) Oral every day No Stop Date Active Ozempic 0.25 mg or 0.5 mg (2 mg/1.5 mL) subcutaneous pen injector RxNorm: 4987531 inject 0.5 milligrams subcutaneously every week 2021 Inactive Ozempic 0.25 mg or 0.5 mg (2 mg/1.5 mL) subcutaneous pen injector RxNorm: 2366362 Take 0.5 Capsule(s) Injection once a week 2021 Inactive omeprazole 20 mg capsule,delayed release RxNorm: 295372 Take 1 Capsule(s) Oral every evening 2020 Inactive Ozempic 0.25 mg or 0.5 mg (2 mg/1.5 mL) subcutaneous pen injector RxNorm: 6568245 Take 0.25 Milligram(s) Subcutaneous once a week 2021 Inactive Easy Touch Alcohol Prep Pads RxNorm: 367410 USE DIRECTED EACH MORNING 021 2021 Inactive Probiotic 10 billion cell capsule RxNorm: 5633799 Take 1 Capsule(s) Oral every day 2021 Inactive levothyroxine 50 mcg tablet RxNorm: 916565 Take 1 Tablet(s) Oral every day 2020 Inactive Acid User Acceptance Tester (famotidine) 20 mg tablet RxNorm: 195012 Take 1 Tablet(s) Oral every morning 021 2020 Inactive Heartburn Relief (famotidine) 10 mg tablet RxNorm: 675112 Take 1 Tablet(s) Oral QAM 021 2020 Inactive levothyroxine 50 mcg tablet RxNorm: 876199 Take 1 Tablet(s) Oral QD 021 2020 Inactive Singulair 10 mg tablet RxNorm: 608585 TAKE (1) TABLET BY MOUTH DAILY 2020 Inactive metformin 1,000 mg tablet RxNorm: 678857 1 Tablet(s) Oral two times a day 2021 Inactive lisinopril 2.5 mg tablet RxNorm: 111310 Take 1 Tablet(s) Oral every day 021 2020 Inactive hydrochlorothiazide 25 mg tablet RxNorm: 948358 Take 1 Tablet(s) Oral every day 2020 Inactive ondansetron 4 mg disintegrating tablet RxNorm: 482175 1 Tablet(s) Oral two times a day 021 2020 Inactive Sudafed 12 Hour 120 mg tablet,extended release RxNorm: 6988509 TAKE 1 TABLET BY MOUTH EVERY 12 HOURS NEEDED 2021 Inactive Heartburn Relief (famotidine) 10 mg tablet RxNorm: 359887 Take 1 Tablet(s) Oral every morning 021 2020 Inactive omeprazole 20 mg capsule,delayed release RxNorm: 891418 1 Capsule(s) Oral every evening 021 2020 Inactive sertraline 100 mg tablet RxNorm: 954060 2 Tablet(s) Oral every day 021 2020 Inactive levothyroxine 50 mcg tablet RxNorm: 423153 TAKE (1) TABLET BY MOUTH DAILY 021 2020 Inactive metformin 500 mg tablet RxNorm: 554179 1 Tablet(s) Oral two times a day take with 500mg to equal 1000mg 021 2020 Inactive gabapentin 300 mg capsule RxNorm: 272462 TAKE 1 CAPSULE BY MOUTH THREE TIMES A DAY 021 2020 Inactive lisinopril 2.5 mg tablet RxNorm: 681703 TAKE 1 TABLET BY MOUTH DAILY 021 2020 Inactive gabapentin 300 mg capsule RxNorm: 856724 TAKE 1 CAPSULE BY MOUTH THREE TIMES A DAY 021 2020 Inactive Singulair 10 mg tablet RxNorm: 140488 TAKE (1) TABLET BY MOUTH DAILY 021 2020 Inactive metformin 1,000 mg tablet RxNorm: 654105 1 Tablet(s) Oral two times a day 021 2020 Inactive atorvastatin 40 mg tablet RxNorm: 205809 1 Tablet(s) Oral every day 021 2020 Inactive omeprazole 20 mg capsule,delayed release RxNorm: 336771 1 Capsule(s) Oral every evening 021 2020 Inactive famotidine 10 mg tablet RxNorm: 301151 1 Tablet(s) Oral every morning 021 2020 Inactive Alcohol Prep Pads RxNorm: 627071 USE EACH MORNING 021 2020 Inactive omeprazole 20 mg capsule,delayed release RxNorm: 057230 1 Capsule(s) Oral two times a day 2021 Inactive omeprazole 20 mg capsule,delayed release RxNorm: 159593 TAKE 1 CAPSULE BY MOUTH EVERY DAY 2021 Inactive Macrobid 100 mg capsule RxNorm: 189594 1 Capsule(s) Oral every 12 hours with food 2020 Inactive omeprazole 20 mg capsule,delayed release RxNorm: 978965 1 Capsule(s) Oral two times a day 2021 Inactive metformin 1,000 mg tablet RxNorm: 503077 1 Tablet(s) Oral two times a day 2020 Inactive start on September 11, 2020 metformin 500 mg tablet RxNorm: 165330 1 Tablet(s) Oral two times a day take with 500mg to equal 1000mg 2019 Inactive gabapentin 300 mg capsule RxNorm: 822965 TAKE 1 CAPSULE BY MOUTH THREE TIMES DAILY 2020 Inactive cetirizine 10 mg tablet RxNorm: 2108469 TAKE (1) TABLET BY MOUTH DAILY 2020 Inactive metformin 500 mg tablet RxNorm: 845118 1 Tablet(s) Oral two times a day 2019 Inactive loperamide 2 mg tablet RxNorm: 355799 1 Tablet(s) Oral as needed take one tablet after each loose stool, maximum of 8 tablets in 24 hours 2021 Inactive Sudafed 12 Hour 120 mg tablet,extended release RxNorm: 1318105 TAKE 1 TABLET BY MOUTH EVERY 12 HOURS NEEDED 2019 Inactive hydrochlorothiazide 25 mg tablet RxNorm: 505047 TAKE (1) TABLET BY MOUTH EVERY DAY 2019 Inactive omeprazole 20 mg capsule,delayed release RxNorm: 586336 TAKE 1 CAPSULE BY MOUTH EVERY DAY 2020 Inactive metformin 500 mg tablet RxNorm: 789028 1 Tablet(s) Oral every day 020 2019 Inactive True Metrix Glucose Test Strip RxNorm: 1 Test Strips Miscellaneous two times a day as needed No Stop Date Active metformin 500 mg tablet RxNorm: 385882 1 Tablet(s) Oral every day 2019 Inactive diclofenac sodium 75 mg tablet,delayed release RxNorm: 175985 1 Tablet(s) PO BID 2021 Inactive This refill negates all other refills of this medication Sudafed 12 Hour 120 mg tablet,extended release RxNorm: 4028807 TAKE 1 TABLET BY MOUTH EVERY 12 HOURS NEEDED 020 2019 Inactive True Metrix Glucose Test Strip RxNorm: 1 Test Strips Miscellaneous every morning 020 2019 Inactive 100/container True Metrix Glucose Test Strip RxNorm: 1 Test Strips Miscellaneous QAM 2019 Inactive 100/container loperamide 2 mg tablet RxNorm: 944643 1 Tablet(s) Oral as needed take one tablet after each loose stool, maximum of 8 tablets in 24 hours 020 2019 Inactive cetirizine 10 mg tablet RxNorm: 8586430 1 Tablet(s) PO daily 2019 Inactive loperamide 2 mg tablet RxNorm: 537185 1 Tablet(s) Oral as needed take one tablet after each loose stool, maximum of 8 tablets in 24 hours 2019 Inactive quetiapine 100 mg tablet RxNorm: 110863 1 Tablet(s) Oral every night at bedtime 2019 Inactive levothyroxine 50 mcg tablet RxNorm: 857395 1 Tablet(s) PO daily 2020 Inactive gabapentin 300 mg capsule RxNorm: 242147 1 Capsule(s) PO TID 2019 Inactive levothyroxine 50 mcg tablet RxNorm: 403950 1 Tablet(s) PO daily 2019 Inactive lisinopril 2.5 mg tablet RxNorm: 436689 1 Tablet(s) PO daily 2020 Inactive gabapentin 300 mg capsule RxNorm: 694548 1 Capsule(s) PO TID 2019 Inactive cetirizine 10 mg tablet RxNorm: 5492668 1 Tablet(s) PO daily 2019 Inactive Singulair 10 mg tablet RxNorm: 816823 1 Tablet(s) PO daily 2020 Inactive gentamicin 0.3 % eye drops RxNorm: 321251 1 Drop(s) ophthalmic (eye) four times a day 2019 Inactive gentamicin 0.3 % eye drops RxNorm: 081563 1 Drop(s) ophthalmic (eye) four times a day 2019 Inactive gentamicin 0.3 % eye drops RxNorm: 913135 1 Drop(s) ophthalmic (eye) four times a day 2019 Inactive hydrochlorothiazide 25 mg tablet RxNorm: 692287 1 Tablet(s) Oral every day 2019 Inactive Sudafed 12 Hour 120 mg tablet,extended release RxNorm: 5053584 TAKE (1) TABLET BY MOUTH EVERY 12 HOURS NEEDED 2019 Inactive loperamide 2 mg tablet RxNorm: 991756 1 Tablet(s) Oral as needed take one tablet after each loose stool, maximum of 8 tablets in 24 hours 2019 Inactive loperamide 2 mg tablet RxNorm: 743126 1 Tablet(s) Oral as needed take one tablet after each loose stool, maximum of 8 tablets in 24 hours 020 2019 Inactive atorvastatin 40 mg tablet RxNorm: 280451 1 Tablet(s) Oral every day 2020 Inactive quetiapine 100 mg tablet RxNorm: 542990 1 Tablet(s) Oral every night at bedtime 2019 Inactive sertraline 100 mg tablet RxNorm: 982552 1 Tablet(s) Oral 020 2019 Inactive omeprazole 20 mg capsule,delayed release RxNorm: 677797 1 Capsule(s) Oral every day 2019 Inactive amoxicillin 250 mg capsule RxNorm: 371027 1 Capsule(s) Oral three times a day 020 2019 Inactive multivitamin with iron-mineral tablet RxNorm: 1 Tablet(s) Oral every day 2021 Inactive cetirizine 10 mg tablet RxNorm: 9738519 1 Tablet(s) PO daily 2019 Inactive This refill negates all other refills of this medication. Please do not auto refill Singulair 10 mg tablet RxNorm: 746933 1 Tablet(s) PO daily 020 2019 Inactive This refill negates all other refills of this medication gabapentin 300 mg capsule RxNorm: 525499 1 Capsule(s) PO TID 2019 Inactive lisinopril 2.5 mg tablet RxNorm: 529609 1 Tablet(s) PO daily 2019 Inactive levothyroxine 50 mcg tablet RxNorm: 592160 1 Tablet(s) PO daily 2019 Inactive This refill negates all other refills of this medication hydrochlorothiazide 25 mg tablet RxNorm: 679455 1 Tablet(s) Oral every day 2019 Inactive fenugreek seed extract 500 mg capsule RxNorm: 1 Capsule(s) Oral three times a day 2021 Inactive Alcohol Prep Pads RxNorm: 362321 1 Patch TOP QAM 2020 Inactive loperamide 2 mg tablet RxNorm: 678924 1 Tablet(s) Oral as needed take one tablet after each loose stool not to exceed 8 tablets a day 2018 Inactive Calcium 600-D3 Plus (mag-zinc) 600 mg calcium-800 unit-50 mg tablet RxNorm: 1 Tablet(s) PO daily take an additonal tablet for itching. 2021 Inactive This refill negates all other refills of this medication TRUEplus Lancets 30 gauge RxNorm: 1 Lancets Miscellaneous QA 019 2019 Inactive 100/box fenugreek seed extract 500 mg capsule RxNorm: 1 Capsule(s) Oral three times a day 2019 Inactive hydrochlorothiazide 25 mg tablet RxNorm: 192445 1 Tablet(s) Oral every day 2019 Inactive Sudafed 12 Hour 120 mg tablet,extended release RxNorm: 3892052 1 Tablet(s) Oral every 12 hours as needed 019 2018 Inactive omeprazole 20 mg capsule,delayed release RxNorm: 670731 1 Capsule(s) Oral every day 019 2019 Inactive Sudafed 12 Hour 120 mg tablet,extended release RxNorm: 5196588 1 Tablet(s) Oral every 12 hours as needed 2018 Inactive pantoprazole 40 mg tablet,delayed release RxNorm: 415611 1 Tablet(s) Oral every day 019 2018 Inactive discontinue any other H2Blkr. and PPI albuterol sulfate 2.5 mg/3 mL (0.083 %) solution for nebulization RxNorm: 896301 1 Vial Inhalation every four hours as needed as needed for dyspnea 2019 Inactive 60/box. This refill negates all other refills of this medication. Please do not fill early. Please do not auto refill. Symbicort 160 mcg-4.5 mcg/actuation HFA aerosol inhaler RxNorm: 3698401 2 Puff(s) INH BID No Stop Date Active Alcohol Prep Pads RxNorm: 652651 1 Patch TOP QAM 2019 Inactive Ventolin HFA 90 mcg/actuation aerosol inhaler RxNorm: 265451 2 Puff(s) INH QID 2019 Inactive Please do not fill early. Please do not auto refill. This refill negates all other refills of this medication True Metrix Glucose Test Strip RxNorm: 1 Test Strips Miscellaneous QAM 019 2019 Inactive 100/container atorvastatin 40 mg tablet RxNorm: 304706 1 Tablet(s) Oral every day 019 2019 Inactive buspirone 7.5 mg tablet RxNorm: 139799 1 Tablet(s) PO BID 019 2020 Inactive This refill negates all other refills of this medication hydrochlorothiazide 12.5 mg tablet RxNorm: 115954 1 Tablet(s) PO QAM 019 2019 Inactive levmetamfetamine 50 mg nasal inhaler RxNorm: 1 Unit(s) NASAL Q3-4H Do not use more than every 3 hours or 8 times/24hours 019 2021 Inactive Please do not auto refill. This refill negates all other refills of this medication Ventolin HFA 90 mcg/actuation aerosol inhaler RxNorm: 651765 2 Puff(s) INH QID 019 2018 Inactive Please do not fill early. Please do not auto refill. This refill negates all other refills of this medication Singulair 10 mg tablet RxNorm: 061796 1 Tablet(s) PO daily 019 2019 Inactive This refill negates all other refills of this medication cetirizine 10 mg tablet RxNorm: 0041696 1 Tablet(s) PO daily 019 2019 Inactive This refill negates all other refills of this medication. Please do not auto refill levothyroxine 50 mcg tablet RxNorm: 182303 1 Tablet(s) PO daily 019 2019 Inactive This refill negates all other refills of this medication diclofenac sodium 75 mg tablet,delayed release RxNorm: 035926 1 Tablet(s) PO BID 019 2019 Inactive This refill negates all other refills of this medication ranitidine 150 mg tablet RxNorm: 947811 1 Tablet(s) PO BID 019 2018 Inactive This refill negates all other refills of this medication Calcium 600-D3 Plus (mag-zinc) 600 mg calcium-800 unit-50 mg tablet RxNorm: 1 Tablet(s) PO daily take an additonal tablet for itching. 019 2018 Inactive This refill negates all other refills of this medication albuterol sulfate 2.5 mg/3 mL (0.083 %) solution for nebulization RxNorm: 234234 1 Vial INH QID 019 2018 Inactive 60/box. This refill negates all other refills of this medication. Please do not fill early. Please do not auto refill. lisinopril 2.5 mg tablet RxNorm: 377310 1 Tablet(s) PO daily 019 2019 Inactive gabapentin 300 mg capsule RxNorm: 308656 1 Capsule(s) PO TID 019 2019 Inactive atorvastatin 20 mg tablet RxNorm: 898920 1 Tablet(s) PO QHS 2018 Inactive This refill negates all other refills of this medication TRUEplus Lancets 30 gauge RxNorm: 1 Lancets Miscellaneous QAM 2018 Inactive 100/box gabapentin 300 mg capsule RxNorm: 120662 1 Capsule(s) PO TID 2018 Inactive Flintstones Complete (iron) 18 mg iron chewable tablet RxNorm: 1 Tablet(s) PO daily 2021 Inactive This refill negates all other refills of this medication gabapentin 300 mg capsule RxNorm: 038455 1 Capsule(s) PO TID as needed 2018 Inactive True Metrix Glucose Test Strip RxNorm: 1 Test Strips Miscellaneous QAM 2018 Inactive 100/container Alcohol Prep Pads RxNorm: 599001 1 Patch TOP QAM 2018 Inactive TRUEplus Lancets 30 gauge RxNorm: 1 Lancets Miscellaneous QAM 2018 Inactive 100/box lisinopril 2.5 mg tablet RxNorm: 574257 1 Tablet(s) PO daily 2018 Inactive ranitidine 150 mg tablet RxNorm: 763902 1 Tablet(s) PO BID 2018 Inactive This refill negates all other refills of this medication albuterol sulfate 2.5 mg/3 mL (0.083 %) solution for nebulization RxNorm: 700175 1 Vial INH QID 2018 Inactive 60/box. [...] this medication gabapentin 300 mg capsule RxNorm: 828546 1 Capsule(s) PO TID as needed 019 2018 Inactive atorvastatin 20 mg tablet RxNorm: 636506 1 Tablet(s) PO QHS 019 2018 Inactive This refill negates all other refills of this medication trazodone 50 mg tablet RxNorm: 556260 1 Tablet(s) PO QHS 019 2018 Inactive This refill negates all other refills of this medication Ventolin HFA 90 mcg/actuation aerosol inhaler RxNorm: 831056 2 Puff(s) INH QID 019 2018 Inactive Please do not fill early. Please do not auto refill. This refill negates all other refills of this medication Calcium 600-D3 Plus 600 mg calcium-800 unit-50 mg tablet RxNorm: 1 Tablet(s) PO daily take an additonal tablet for itching. 019 2018 Inactive This refill negates all other refills of this medication Singulair 10 mg tablet RxNorm: 112709 1 Tablet(s) PO daily 019 2018 Inactive This refill negates all other refills of this medication buspirone 7.5 mg tablet RxNorm: 810994 1 Tablet(s) PO BID 019 2018 Inactive This refill negates all other refills of this medication diclofenac sodium 75 mg tablet,delayed release RxNorm: 234786 1 Tablet(s) PO BID 019 2018 Inactive This refill negates all other refills of this medication hydrochlorothiazide 12.5 mg tablet RxNorm: 309315 1 Tablet(s) PO QAM 019 2018 Inactive metoprolol succinate ER 50 mg tablet,extended release 24 hr RxNorm: 577230 1 Tablet(s) PO daily 019 2018 Inactive This refill negates all other refills of this medication levothyroxine 50 mcg tablet RxNorm: 641161 1 Tablet(s) PO daily 019 2018 Inactive This refill negates all other refills of this medication cetirizine 10 mg tablet RxNorm: 5690776 1 Tablet(s) PO daily 019 2018 Inactive This refill negates all other refills of this medication. Please do not auto refill Flintstones Complete (iron) 18 mg iron chewable tablet RxNorm: 1 Tablet(s) PO daily 019 2018 Inactive This refill negates all other refills of this medication buspirone 7.5 mg tablet RxNorm: 178765 1 Tablet(s) PO BID 2018 Inactive cetirizine 10 mg tablet RxNorm: 7830679 1 Tablet(s) PO daily 2018 Inactive Guaiasorb DM 10 mg-100 mg/5 mL oral liquid RxNorm: 500190 10 Milliliter(s) PO As needed every 4 hr 2018 Inactive Vicks Vaporub 4.7 %-1.2 %-2.6 % topical ointment RxNorm: 7549562 1 Application TOP TID 2018 Inactive levmetamfetamine 50 mg nasal inhaler RxNorm: 1 Unit(s) NASAL Q3-4H 2017 Inactive sertraline 50 mg tablet RxNorm: 657289 1 Tablet(s) PO daily 018 2018 Inactive Please note dose trazodone 50 mg tablet RxNorm: 764003 1 Tablet(s) PO QHS 018 2018 Inactive sertraline 50 mg tablet RxNorm: 402765 1 Tablet(s) PO daily 018 2017 Inactive amoxicillin 500 mg tablet RxNorm: 995829 1 Tablet(s) PO Q12H 018 2017 Inactive albuterol sulfate 2.5 mg/3 mL (0.083 %) solution for nebulization RxNorm: 822731 1 Vial INH QID 018 2018 Inactive 60/box. Please do not fill early. Please do not auto refill. Prozac 10 mg capsule RxNorm: 377419 1 Capsule(s) PO daily 018 2017 Inactive buspirone 7.5 mg tablet RxNorm: 847178 1 Tablet(s) PO BID 018 2018 Inactive gabapentin 300 mg capsule RxNorm: 298055 1 Capsule(s) PO TID as needed 2018 Inactive hydrochlorothiazide 12.5 mg tablet RxNorm: 576256 1 Tablet(s) PO QAM 2018 Inactive ranitidine 150 mg tablet RxNorm: 509259 1 Tablet(s) PO BID 018 2018 Inactive Macrobid 100 mg capsule RxNorm: 529479 1 Capsule(s) PO Q12H 018 2017 Inactive Singulair 10 mg tablet RxNorm: 222958 1 Tablet(s) PO daily 018 2018 Inactive Ventolin HFA 90 mcg/actuation aerosol inhaler RxNorm: 8420046 2 Puff(s) INH QID 018 2018 Inactive Singulair 10 mg tablet RxNorm: 913573 1 Tablet(s) PO daily 018 2017 Inactive buspirone 7.5 mg tablet RxNorm: 619546 1 Tablet(s) PO BID 018 2017 Inactive Prozac 10 mg capsule RxNorm: 263817 1 Capsule(s) PO daily 018 2017 Inactive diclofenac sodium 75 mg tablet,delayed release RxNorm: 980514 1 Tablet(s) PO BID 018 2017 Inactive lisinopril 2.5 mg tablet RxNorm: 359778 1 Tablet(s) PO daily 018 2017 Inactive Neilmed Pediatric Sinus Rinse Refill packet RxNorm: 1 Unit Dose NASAL PRN 018 2021 Inactive metoprolol succinate ER 50 mg tablet,extended release 24 hr RxNorm: 600138 1 Tablet(s) PO daily 018 2017 Inactive levothyroxine 50 mcg tablet RxNorm: 188475 1 Tablet(s) PO daily 018 2017 Inactive TRUEplus Lancets 30 gauge RxNorm: 1 Lancets Miscellaneous QAM 018 2017 Inactive 100/box Ventolin HFA 90 mcg/actuation aerosol inhaler RxNorm: 698821 2 Puff(s) INH QID 018 2017 Inactive Aleve 220 mg capsule RxNorm: 3061918 1 Capsule(s) PO BID 018 2018 Inactive ranitidine 150 mg tablet RxNorm: 430341 1 Tablet(s) PO BID 018 2017 Inactive gabapentin 300 mg capsule RxNorm: 586970 1 Capsule(s) PO TID as needed 018 2017 Inactive atorvastatin 20 mg tablet RxNorm: 371325 1 Tablet(s) PO QHS 018 2017 Inactive True Metrix Glucose Test Strip RxNorm: 1 Test Strips [facility] QA 018 2017 Inactive 50/container Calcium 600-D3 Plus 600 mg calcium-800 unit-50 mg tablet RxNorm: 1 Tablet(s) PO daily take an additonal tablet for itching. 018 2017 Inactive hydrochlorothiazide 12.5 mg tablet RxNorm: 450827 1 Tablet(s) PO QAM 018 2017 Inactive Flintstones Complete (iron) 18 mg iron chewable tablet RxNorm: 1 Tablet(s) PO daily 018 2017 Inactive True Metrix Glucose Meter RxNorm: miscellaneous 019 2018 Inactive sertraline 50 mg tablet RxNorm: 712150 1 Tablet(s) PO daily 020 2019 Inactive loperamide 2 mg tablet RxNorm: 430886 oral 019 2018 Inactive d-mannose oral powder RxNorm: PO 018 2021 Inactive Symbicort 160 mcg-4.5 mcg/actuation HFA aerosol inhaler RxNorm: 7386734 2 Puff(s) INH BID 019 2018 Inactive [...] CPT-4: VACP Fall Risk Assessment SNOMED CT: 05743345 4 CPT-4: DFRA01/13/2021emmes Fany AssessmentCPT-4: DSWA12/17/2020Urinalysis, dip stickCPT-4: 052310009/24/2020Patient Health QuestionnaireCPT-4: DPHQ 08/19/2020ElectrocardiogramCPT-4: 9759979Tobacco Assessment/Screening CPT-4: TCA01/01/2020Fall Risk AssessmentSNOMED CT: 320473715 CPT-4: DFRA01/01/2020Functional AssessmentCPT-4: DFA01/01/2020[place] Fany AssessmentCPT-4: DSWA11/28/2019Patient Health QuestionnaireCPT-4: DPHQ11/28/2019 [place] Fany AssessmentCPT-4: DSWA10/17/2019HypertensionCPT-4: HTN10/17/[address]: 998656862 CPT-4: DFRA09/19/2019Functional AssessmentCPT-4: DFA111/20/2018Urinalysis, dip stickCPT-4: 2345433Tobacco Assessment/ScreeningCPT-4: TCA05/24/2019 Patient Health QuestionnaireCPT-4: DPHQ05/24/2019AHA/REBECCA Classification AssessmentCPT-4: DAHA04/25/2019Controlled Substance ReportCPT-4: CTRSU04/25/2019 Urinalysis, dip stickCPT-4: 399602303/28/2019Urinalysis, dip stickCPT-4: 54582 03/28/20193143K0R-OoghyymjqaiteymOAK-1: 40538ZswtvovZ5M-ZaigfvovdmbpypoZRG-1: 48451 VzlrewzB7W-MlkiqakpgnrssbmLYM-1: 43648QbxpdviI9J-CmrrptsrofszgfeVES-5: 62945 EmdpjqrD4Q-ShahxkjegcqrtzjCLK-5: 27974GyuyzuaW7A-FoqbbbyvocstugcUZC-1: 79857 GrooqlrB0C-HfisaoegifqnoplWMN-3: 81481VgymlmuP3X-ZhjlsjbqzggrtojGAR-9: 58836 QxrdhkdO9M-UqyamodyqugcezhXOS-9: 04948RadqxqdHahqvhkfdi ReferralSNOMED CT: 331852631 CPT-4: A91Fhitqzt Reason For Visit No Reason For Visit data Plan of Care Planned Activity Notes Codes Status Date Referral: Pending Gynecology Referral Informatio n Referral ProcessedReferral: Pending Pulmonology Referral InformationReferralProcessed Referral: Pending Psychiatry Referral InformationReferralInitiatedReferral: Pending Respiratory Services Referral InformationReferralInitiatedReferral: Pending Ophthalmology Referral InformationReferralInitiatedReferral: [facility] WPtel: [address] [place] [address] [id number] USWriter placed a call out to the patient to notify her that it has been recommended that she be seenby 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 Patient agreed to be seen, does not have a provider of choice and no transportationissues. House Worker faxed referral and clinical notes to [facility] in [place], [place] near the patient's home. Patient to [...] seen and prefers a provider in the [place] or [place] area. House Worker placed a call out to everyone listed in the area and the only location that was able to accept the patient's insurance was [address] [id number] and spoke with Maylin. Maylin asked that the patient's referral, face sheet and visit notes be faxed to . House Worker faxed over requested documents. Patient appointment confirmation letter generated and mailed to her home address. Patient to call to schedule an appointment.ProcessedReferral: [facility] WPtel: [address] [place], [place] [id number] USPatient notified that it has been advised that she be seen by Neurology. Patient agreed to be seen and prefers to be seen by a provider in the [place], [place] area. Patient denies any concerns with transportation, and prefers to schedule her own appointment. House Worker placed a call out to [facility] and spoke with Neeraj P: who confirmed that their office is able to acceptnew patients and the patient's insurance. After confirming the providers fax number, contract technical writer faxed over the patient's referral, [...]
--- OUTSIDE RECORDS SUMMARY | 2022-04-18 20:00 | XMS_ITS | CCD ---
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 Name Role Phone Palomo KING, Anna Primary Care Provider Unav ailable Unavailable Chronic Care Management Unavaila ble Summary Purpose DataExchange Insurance Providers Payer name Policy type / Coverage type Covered green party ID Effective Begin Date Effective End Date SUKI MAYO [id number] Unknown Unknown Family history Mother Diagnosis Age [...] 05/31/2018 Education level Unknown Some High School 10th05/31/20186105JeytojybwkUorefblZgjetdeexc07/29/2018Tobacco historySNOMED CT: [id number] never smoked or chewed dcucxwe8805/31/2018Alcohol historySNOMED CT: 668985842Jqrfp drinks imxkcrl7305/31/2018Has the patient ever used illegal drugs? UnknownHas never used illegal drugs05/31/2018DNR Order/ Advanced Directive UnknownFull Code05/31/2018 Allergies, Adverse Reactions, Alerts Substance Reaction Codes Entered Date Inactivated Date Status OxyContin itch, RxNorm: 394300 01/13/2021 No Inactive Da te Active *No known food allergies Wyiaevr8909/06/2018No Inactive DateActiveMethylprednisolonehivesRxNorm: 6902 09/06/2018No Inactive DateActive Problems Condition Codes Effective Dates Condition St atus Adjustment disorder with mixed anxiety a nd depressed mood ICD-10: F43.23 ICD-9: 309.2812/01/2018ActiveAdult BMI 50.0-59.9 kg/sq mICD-10: Z68.43 ICD-9: V85.4308ActiveHyperlipidemia, mixedICD-10: E78.2 ICD-9: 272.203/2ActiveHypertensionICD-10: I10 ICD-9: 401.903/2ActiveType 2 diabetes mellitus with peripheral neuropathy ICD-10: E11.42 ICD-9: 250.6002Active(Z00.00-V70.9) Encounter for general adult medical examination without abnormal findingsICD-10: Z00.00 ICD-9: V70.905/2ActiveAllergic rhinitisICD-10: J30.9 ICD-9: 477.90/ctiveObstructive sleep apnea (adult) (pediatric)ICD-10: G47.33 ICD-9: 327.2309/ActiveAsthmaICD-10: J45.909 ICD-9: 493.9011/03/2018ActiveGERD (gastroesophageal reflux disease)ICD-10: K21.9 [...] R06.00 ICD-9: 786.0905/06/2019ResolvedElevated liver enzymesICD-10: R74.8 ICD-9: 790.5041ResolvedEncounter for screening for tobacco useICD-10: Z01.89 ICD-9: V72.8503ResolvedEncounter for screening, unspecifiedICD-10: Z13.9 ICD-9: V82.912ResolvedFamily history of seizuresICD-10: Z84.89 ICD-9: V19.807/1ResolvedHyperlipidemia, unspecifiedICD-10: E78.5 ICD-9: 272.408ResolvedLong term (current) use of non-steroidal anti- inflammatories (NSAID)ICD-10: Z79.1 ICD-9: V58.6409ResolvedPatient Not SeenICD-10: UXZ.01 ICD-9: XZ0.107/ResolvedPatient not seenICD-10: UXZ.01 ICD-9: UXZ.0112/1ResolvedUpper respiratory infectionICD-10: J06.9 ICD-9: 465.908/esolvedSyncope and collapseICD-10: R55 ICD-9: 780.203ActivePost-traumatic stress disorder, unspecifiedICD-10: F43.10 ICD-9: 309.8112ActiveHistory of bladder surgeryICD-10: Z98.890 ICD-9: V45.8904ctiveUrinary retention with incomplete bladder emptying ICD-10: R33.9 ICD-9: 788.2101ActiveEncounter for immunizationICD-10: Z23 ICD-9: V04.8109InactiveApnea, not elsewhere classifiedICD-10: R06.81 ICD-9: 786.0305InactiveChest pain, unspecifiedICD-10: R07.9 ICD-9: 786.5002InactiveChronic kidney disease, unspecifiedICD-10: N18.9 ICD-9: 585.909InactiveEncounter for immunizationICD-10: Z23 ICD-9: V03.907/InactiveEncounter for preprocedural cardiovascular examinationICD-10: Z01.810 ICD-9: V72.8106/InactiveHeadacheICD-10: R51 ICD-9: 784.001InactiveOther detention (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ICD-10: Z79.899 ICD-9: V58.6907InactiveType 2 [...] Date Stop Date Status Fill Instructions Ozempic 1 mg/dose (4 mg/3 mL) subcutaneous pen injector RxNorm: 7462671 Take 1 Unit Dose Subcutaneous QWeek 022 2021 Inactive Ozempic 0.25 mg or 0.5 mg (2 mg/1.5 mL) subcutaneous pen injector RxNorm: 7924213 INJECT 0.5 MGS SUBCUTANEOUSLY EVERY WEEK 022 2021 Inactive omeprazole 20 mg capsule,delayed release RxNorm: 123252 Take 1 Capsule(s) Oral every evening 022 2021 Inactive levothyroxine 50 mcg tablet RxNorm: 974840 Take 1 Tablet(s) Oral every day 022 2021 Inactive atorvastatin 20 mg tablet RxNorm: 650510 Take 1 Tablet(s) Oral every night at bedtime 2021 Inactive This refill negates all other refills of this medication lisinopril 2.5 mg tablet RxNorm: 340775 Take 1 Tablet(s) Oral every day 2021 Inactive gabapentin 300 mg capsule RxNorm: 007046 Take 1 Capsule(s) Oral three times a day 022 2021 Inactive montelukast 10 mg tablet RxNorm: 863670 Take 1 Tablet(s) Oral every day 022 2021 Inactive cholecalciferol (vitamin D3) 50 mcg (2,000 unit) tablet RxNorm: 543025 Take 1 Tablet(s) Oral every day 2022 Inactive Myrbetriq 50 mg tablet,extended release RxNorm: 9587775 1 Tablet(s) Oral every day No Stop Date Active Ozempic 0.25 mg or 0.5 mg (2 mg/1.5 mL) subcutaneous pen injector RxNorm: 9851620 inject 0.5 milligrams subcutaneously every week 2021 Inactive Ozempic 0.25 mg or 0.5 mg (2 mg/1.5 mL) subcutaneous pen injector RxNorm: 0367873 Take 0.5 Capsule(s) Injection once a week 2021 Inactive omeprazole 20 mg capsule,delayed release RxNorm: 790483 Take 1 Capsule(s) Oral every evening 2020 Inactive Ozempic 0.25 mg or 0.5 mg (2 mg/1.5 mL) subcutaneous pen injector RxNorm: 5577814 Take 0.25 Milligram(s) Subcutaneous once a week 021 2021 Inactive Easy Touch Alcohol Prep Pads RxNorm: 017020 USE DIRECTED EACH MORNING 021 2021 Inactive Probiotic 10 billion cell capsule RxNorm: 2978750 Take 1 Capsule(s) Oral every day 021 2021 Inactive levothyroxine 50 mcg tablet RxNorm: 471944 Take 1 Tablet(s) Oral every day [address] [employer] Repairer (famotidine) 20 mg tablet RxNorm: 214808 Take 1 Tablet(s) Oral every morning 2020 Inactive Heartburn Relief (famotidine) 10 mg tablet RxNorm: 461748 Take 1 Tablet(s) Oral QAM 021 2020 Inactive levothyroxine 50 mcg tablet RxNorm: 279554 Take 1 Tablet(s) Oral QD 2020 Inactive Singulair 10 mg tablet RxNorm: 342385 TAKE (1) TABLET BY MOUTH DAILY 2020 Inactive metformin 1,000 mg tablet RxNorm: 357239 1 Tablet(s) Oral two times a day 021 2021 Inactive lisinopril 2.5 mg tablet RxNorm: 427228 Take 1 Tablet(s) Oral every day 021 2020 Inactive hydrochlorothiazide 25 mg tablet RxNorm: 766980 Take 1 Tablet(s) Oral every day 021 2020 Inactive ondansetron 4 mg disintegrating tablet RxNorm: 559167 1 Tablet(s) Oral two times a day 021 2020 Inactive Sudafed 12 Hour 120 mg tablet,extended release RxNorm: 1003336 TAKE 1 TABLET BY MOUTH EVERY 12 HOURS NEEDED 021 2021 Inactive Heartburn Relief (famotidine) 10 mg tablet RxNorm: 159489 Take 1 Tablet(s) Oral every morning 021 2020 Inactive omeprazole 20 mg capsule,delayed release RxNorm: 478754 1 Capsule(s) Oral every evening 021 2020 Inactive sertraline 100 mg tablet RxNorm: 906394 2 Tablet(s) Oral every day 021 2020 Inactive levothyroxine 50 mcg tablet RxNorm: 892410 TAKE (1) TABLET BY MOUTH DAILY 021 2020 Inactive metformin 500 mg tablet RxNorm: 731328 1 Tablet(s) Oral two times a day take with 500mg to equal 1000mg 021 2020 Inactive gabapentin 300 mg capsule RxNorm: 358790 TAKE 1 CAPSULE BY MOUTH THREE TIMES A DAY 021 2020 Inactive lisinopril 2.5 mg tablet RxNorm: 226198 TAKE 1 TABLET BY MOUTH DAILY 021 2020 Inactive gabapentin 300 mg capsule RxNorm: 214562 TAKE 1 CAPSULE BY MOUTH THREE TIMES A DAY 021 2020 Inactive Singulair 10 mg tablet RxNorm: 077476 TAKE (1) TABLET BY MOUTH DAILY 021 2020 Inactive metformin 1,000 mg tablet RxNorm: 162942 1 Tablet(s) Oral two times a day 021 2020 Inactive atorvastatin 40 mg tablet RxNorm: 346094 1 Tablet(s) Oral every day 021 2020 Inactive omeprazole 20 mg capsule,delayed release RxNorm: 118710 1 Capsule(s) Oral every evening 021 2020 Inactive famotidine 10 mg tablet RxNorm: 583924 1 Tablet(s) Oral every morning 021 2020 Inactive Alcohol Prep Pads RxNorm: 606564 USE EACH MORNING 021 2020 Inactive omeprazole 20 mg capsule,delayed release RxNorm: 829488 1 Capsule(s) Oral two times a day 021 2021 Inactive omeprazole 20 mg capsule,delayed release RxNorm: 940656 TAKE 1 CAPSULE BY MOUTH EVERY DAY 021 2021 Inactive Macrobid 100 mg capsule RxNorm: 411437 1 Capsule(s) Oral every 12 hours with food 020 2020 Inactive omeprazole 20 mg capsule,delayed release RxNorm: 642938 1 Capsule(s) Oral two times a day 2021 Inactive metformin 1,000 mg tablet RxNorm: 557571 1 Tablet(s) Oral two times a day 2020 Inactive start on September 11, 2020 metformin 500 mg tablet RxNorm: 889023 1 Tablet(s) Oral two times a day take with 500mg to equal 1000mg 2019 Inactive gabapentin 300 mg capsule RxNorm: 245822 TAKE 1 CAPSULE BY MOUTH THREE TIMES DAILY 2020 Inactive cetirizine 10 mg tablet RxNorm: 7585926 TAKE (1) TABLET BY MOUTH DAILY 2020 Inactive metformin 500 mg tablet RxNorm: 806054 1 Tablet(s) Oral two times a day 2019 Inactive loperamide 2 mg tablet RxNorm: 790755 1 Tablet(s) Oral as needed take one tablet after each loose stool, maximum of 8 tablets in 24 hours 2021 Inactive Sudafed 12 Hour 120 mg tablet,extended release RxNorm: 5936026 TAKE 1 TABLET BY MOUTH EVERY 12 HOURS NEEDED 2019 Inactive hydrochlorothiazide 25 mg tablet RxNorm: 993983 TAKE (1) TABLET BY MOUTH EVERY DAY 2019 Inactive omeprazole 20 mg capsule,delayed release RxNorm: 214194 TAKE 1 CAPSULE BY MOUTH EVERY DAY 2020 Inactive metformin 500 mg tablet RxNorm: 666559 1 Tablet(s) Oral every day 2019 Inactive True Metrix Glucose Test Strip RxNorm: 1 Test Strips Miscellaneous two times a day as needed No Stop Date Active metformin 500 mg tablet RxNorm: 652610 1 Tablet(s) Oral every day 020 2019 Inactive diclofenac sodium 75 mg tablet,delayed release RxNorm: 600512 1 Tablet(s) PO BID 07/13/2 020 01/03/ 2022 Inactive This refill negates all other refills of this medication Sudafed 12 Hour 120 mg tablet,extended release RxNorm: 6029332 TAKE 1 TABLET BY MOUTH EVERY 12 HOURS NEEDED 020 2019 Inactive True Metrix Glucose Test Strip RxNorm: 1 Test Strips Miscellaneous every morning 020 2019 Inactive 100/container True Metrix Glucose Test Strip RxNorm: 1 Test Strips Miscellaneous QAM 020 2019 Inactive 100/container loperamide 2 mg tablet RxNorm: 628877 1 Tablet(s) Oral as needed take one tablet after each loose stool, maximum of 8 tablets in 24 hours 020 2019 Inactive cetirizine 10 mg tablet RxNorm: 5729241 1 Tablet(s) PO daily 020 2019 Inactive loperamide 2 mg tablet RxNorm: 197693 1 Tablet(s) Oral as needed take one tablet after each loose stool, maximum of 8 tablets in 24 hours 020 2019 Inactive quetiapine 100 mg tablet RxNorm: 456072 1 Tablet(s) Oral every night at bedtime 020 2019 Inactive levothyroxine 50 mcg tablet RxNorm: 125499 1 Tablet(s) PO daily 020 2020 Inactive gabapentin 300 mg capsule RxNorm: 359260 1 Capsule(s) PO TID 020 2019 Inactive levothyroxine 50 mcg tablet RxNorm: 187576 1 Tablet(s) PO daily 020 2019 Inactive lisinopril 2.5 mg tablet RxNorm: 281615 1 Tablet(s) PO daily 020 2020 Inactive gabapentin 300 mg capsule RxNorm: 717629 1 Capsule(s) PO TID 020 2019 Inactive cetirizine 10 mg tablet RxNorm: 2894756 1 Tablet(s) PO daily 020 2019 Inactive Singulair 10 mg tablet RxNorm: 431460 1 Tablet(s) PO daily 2020 Inactive gentamicin 0.3 % eye drops RxNorm: 751886 1 Drop(s) ophthalmic (eye) four times a day 2019 Inactive gentamicin 0.3 % eye drops RxNorm: 889249 1 Drop(s) ophthalmic (eye) four times a day 2019 Inactive gentamicin 0.3 % eye drops RxNorm: 594715 1 Drop(s) ophthalmic (eye) four times a day 2019 Inactive hydrochlorothiazide 25 mg tablet RxNorm: 298551 1 Tablet(s) Oral every day 2019 Inactive Sudafed 12 Hour 120 mg tablet,extended release RxNorm: 1954934 TAKE (1) TABLET BY MOUTH EVERY 12 HOURS NEEDED 2019 Inactive loperamide 2 mg tablet RxNorm: 072967 1 Tablet(s) Oral as needed take one tablet after each loose stool, maximum of 8 tablets in 24 hours 2019 Inactive loperamide 2 mg tablet RxNorm: 830600 1 Tablet(s) Oral as needed take one tablet after each loose stool, maximum of 8 tablets in 24 hours 2019 Inactive atorvastatin 40 mg tablet RxNorm: 065265 1 Tablet(s) Oral every day 2020 Inactive quetiapine 100 mg tablet RxNorm: 031393 1 Tablet(s) Oral every night at bedtime 2019 Inactive sertraline 100 mg tablet RxNorm: 693637 1 Tablet(s) Oral 020 2019 Inactive omeprazole 20 mg capsule,delayed release RxNorm: 236986 1 Capsule(s) Oral every day 2019 Inactive amoxicillin 250 mg capsule RxNorm: 003240 1 Capsule(s) Oral three times a day 2019 Inactive multivitamin with iron-mineral tablet RxNorm: 1 Tablet(s) Oral every day 2021 Inactive cetirizine 10 mg tablet RxNorm: 8801153 1 Tablet(s) PO daily 2019 Inactive This refill negates all other refills of this medication. Please do not auto refill Singulair 10 mg tablet RxNorm: 152016 1 Tablet(s) PO daily 020 2019 Inactive This refill negates all other refills of this medication gabapentin 300 mg capsule RxNorm: 630954 1 Capsule(s) PO TID 2019 Inactive lisinopril 2.5 mg tablet RxNorm: 524997 1 Tablet(s) PO daily 2019 Inactive levothyroxine 50 mcg tablet RxNorm: 656513 1 Tablet(s) PO daily 2019 Inactive This refill negates all other refills of this medication hydrochlorothiazide 25 mg tablet RxNorm: 422444 1 Tablet(s) Oral every day 2019 Inactive fenugreek seed extract 500 mg capsule RxNorm: 1 Capsule(s) Oral three times a day 2021 Inactive Alcohol Prep Pads RxNorm: 917703 1 Patch TOP QAM 2020 Inactive loperamide 2 mg tablet RxNorm: 713206 1 Tablet(s) Oral as needed take one [...] 1 Capsule(s) Oral three times a day 019 2019 Inactive hydrochlorothiazide 25 mg tablet RxNorm: 698016 1 Tablet(s) Oral every day 019 2019 Inactive Sudafed 12 Hour 120 mg tablet,extended release RxNorm: 3551459 1 Tablet(s) Oral every 12 hours as needed 2018 Inactive omeprazole 20 mg capsule,delayed release RxNorm: 749429 1 Capsule(s) Oral every day 019 2019 Inactive Sudafed 12 Hour 120 mg tablet,extended release RxNorm: 2561479 1 Tablet(s) Oral every 12 hours as needed 2018 Inactive pantoprazole 40 mg tablet,delayed release RxNorm: 099769 1 Tablet(s) Oral every day 2018 Inactive discontinue any other H2Blkr. and PPI albuterol sulfate 2.5 mg/3 mL (0.083 %) solution for nebulization RxNorm: 542857 1 Vial Inhalation every four hours as needed as needed for dyspnea 2019 Inactive 60/box. This refill negates all other refills of this medication. Please do not fill early. Please do not auto refill. Symbicort 160 mcg-4.5 mcg/actuation HFA aerosol inhaler RxNorm: 0967792 2 Puff(s) INH BID No Stop Date Active Alcohol Prep Pads RxNorm: 386049 1 Patch TOP QAM 019 2019 Inactive Ventolin HFA 90 mcg/actuation aerosol inhaler RxNorm: 296404 2 Puff(s) INH QID 2019 Inactive Please do not fill early. Please do not auto refill. This refill negates all other refills of this medication True Metrix Glucose Test Strip RxNorm: 1 Test Strips Miscellaneous QAM 019 2019 Inactive 100/container atorvastatin 40 mg tablet RxNorm: 612985 1 Tablet(s) Oral every day 019 2019 Inactive buspirone 7.5 mg tablet RxNorm: 546618 1 Tablet(s) PO BID 019 2020 Inactive This refill negates all other refills of this medication hydrochlorothiazide 12.5 mg tablet RxNorm: 016979 1 Tablet(s) PO QAM 019 2019 Inactive levmetamfetamine 50 mg nasal inhaler RxNorm: 1 Unit(s) NASAL Q3-4H Do not use more than every 3 hours or 8 times/24hours 019 2021 Inactive Please do not auto refill. This refill negates all other refills of this medication Ventolin HFA 90 mcg/actuation aerosol inhaler RxNorm: 558050 2 Puff(s) INH QID 019 2018 Inactive Please do not fill early. Please do not auto refill. This refill negates all other refills of this medication Singulair 10 mg tablet RxNorm: 432657 1 Tablet(s) PO daily 019 2019 Inactive This refill negates all other refills of this medication cetirizine 10 mg tablet RxNorm: 7859561 1 Tablet(s) PO daily 019 2019 Inactive This refill negates all other refills of this medication. Please do not auto refill levothyroxine 50 mcg tablet RxNorm: 483716 1 Tablet(s) PO daily 019 2019 Inactive This refill negates all other refills of this medication diclofenac sodium 75 mg tablet,delayed release RxNorm: 072996 1 Tablet(s) PO BID 019 2019 Inactive This refill negates all other refills of this medication ranitidine 150 mg tablet RxNorm: 883534 1 Tablet(s) PO BID 019 2018 Inactive This refill negates all other refills of this medication Calcium 600-D3 Plus (mag-zinc) 600 mg calcium-800 unit-50 mg tablet RxNorm: 1 Tablet(s) PO daily take an additonal tablet for itching. 019 2018 Inactive This refill negates all other refills of this medication albuterol sulfate 2.5 mg/3 mL (0.083 %) solution for nebulization RxNorm: 006774 1 Vial INH QID 019 2018 Inactive 60/box. This refill negates all other refills of this medication. Please do not fill early. Please do not auto refill. lisinopril 2.5 mg tablet RxNorm: 559483 1 Tablet(s) PO daily 019 2019 Inactive gabapentin 300 mg capsule RxNorm: 937183 1 Capsule(s) PO TID 019 2019 Inactive atorvastatin 20 mg tablet RxNorm: 738906 1 Tablet(s) PO QHS 019 2018 Inactive This refill negates all other refills of this medication TRUEplus Lancets 30 gauge RxNorm: 1 Lancets Miscellaneous QAM 019 2018 Inactive 100/box gabapentin 300 mg capsule RxNorm: 634878 1 Capsule(s) PO TID 019 2018 Inactive Flintstones Complete (iron) 18 mg iron chewable tablet RxNorm: 1 Tablet(s) PO daily 019 2021 Inactive This refill negates all other refills of this medication gabapentin 300 mg capsule RxNorm: 632152 1 Capsule(s) PO TID as needed 019 2018 Inactive True Metrix Glucose Test Strip RxNorm: 1 Test Strips Miscellaneous QAM 019 2018 Inactive 100/container Alcohol Prep Pads RxNorm: 817727 1 Patch TOP QAM 2018 Inactive TRUEplus Lancets 30 gauge RxNorm: 1 Lancets Miscellaneous QAM 019 2018 Inactive 100/box lisinopril 2.5 mg tablet RxNorm: 328205 1 Tablet(s) PO daily 019 2018 Inactive ranitidine 150 mg tablet RxNorm: 159712 1 Tablet(s) PO BID 019 2018 Inactive This refill negates all other refills of this medication albuterol sulfate 2.5 mg/3 mL (0.083 %) solution for nebulization RxNorm: 537041 1 Vial INH QID 019 2018 Inactive [...] this medication gabapentin 300 mg capsule RxNorm: 752619 1 Capsule(s) PO TID as needed 019 2018 Inactive atorvastatin 20 mg tablet RxNorm: 558545 1 Tablet(s) PO QHS 019 2018 Inactive This refill negates all other refills of this medication trazodone 50 mg tablet RxNorm: 168122 1 Tablet(s) PO QHS 019 2018 Inactive This refill negates all other refills of this medication Ventolin HFA 90 mcg/actuation aerosol inhaler RxNorm: 384347 2 Puff(s) INH QID 019 2018 Inactive Please do not fill early. Please do not auto refill. This refill negates all other refills of this medication Calcium 600-D3 Plus 600 mg calcium-800 unit-50 mg tablet RxNorm: 1 Tablet(s) PO daily take an additonal tablet for itching. 019 2018 Inactive This refill negates all other refills of this medication Singulair 10 mg tablet RxNorm: 324785 1 Tablet(s) PO daily 019 2018 Inactive This refill negates all other refills of this medication buspirone 7.5 mg tablet RxNorm: 690759 1 Tablet(s) PO BID 019 2018 Inactive This refill negates all other refills of this medication diclofenac sodium 75 mg tablet,delayed release RxNorm: 826544 1 Tablet(s) PO BID 019 2018 Inactive This refill negates all other refills of this medication hydrochlorothiazide 12.5 mg tablet RxNorm: 942765 1 Tablet(s) PO QAM 019 2018 Inactive metoprolol succinate ER 50 mg tablet,extended release 24 hr RxNorm: 861157 1 Tablet(s) PO daily 019 2018 Inactive This refill negates all other refills of this medication levothyroxine 50 mcg tablet RxNorm: 829201 1 Tablet(s) PO daily 019 2018 Inactive This refill negates all other refills of this medication cetirizine 10 mg tablet RxNorm: 3719489 1 Tablet(s) PO daily 019 2018 Inactive This refill negates all other refills of this medication. Please do not auto refill Flintstones Complete (iron) 18 mg iron chewable tablet RxNorm: 1 Tablet(s) PO daily 019 2018 Inactive This refill negates all other refills of this medication buspirone 7.5 mg tablet RxNorm: 579277 1 Tablet(s) PO BID 019 2018 Inactive cetirizine 10 mg tablet RxNorm: 9753828 1 Tablet(s) PO daily 018 2018 Inactive Guaiasorb DM 10 mg-100 mg/5 mL oral liquid RxNorm: 675681 10 Milliliter(s) PO As needed every 4 hr 2018 Inactive Vicks Vaporub 4.7 %-1.2 %-2.6 % topical ointment RxNorm: 6548417 1 Application TOP TID 2018 Inactive levmetamfetamine 50 mg nasal inhaler RxNorm: 1 Unit(s) NASAL Q3-4H 018 2017 Inactive sertraline 50 mg tablet RxNorm: 067013 1 Tablet(s) PO daily 018 2018 Inactive Please note dose trazodone 50 mg tablet RxNorm: 320660 1 Tablet(s) PO QHS 018 2018 Inactive sertraline 50 mg tablet RxNorm: 080045 1 Tablet(s) PO daily 018 2017 Inactive amoxicillin 500 mg tablet RxNorm: 816106 1 Tablet(s) PO Q12H 018 2017 Inactive albuterol sulfate 2.5 mg/3 mL (0.083 %) solution for nebulization RxNorm: 568014 1 Vial INH QID 018 2018 Inactive 60/box. Please do not fill early. Please do not auto refill. Prozac 10 mg capsule RxNorm: 198150 1 Capsule(s) PO daily 018 2017 Inactive buspirone 7.5 mg tablet RxNorm: 003437 1 Tablet(s) PO BID 018 2018 Inactive gabapentin 300 mg capsule RxNorm: 367775 1 Capsule(s) PO TID as needed 018 2018 Inactive hydrochlorothiazide 12.5 mg tablet RxNorm: 412980 1 Tablet(s) PO QAM 018 2018 Inactive ranitidine 150 mg tablet RxNorm: 207108 1 Tablet(s) PO BID 018 2018 Inactive Macrobid 100 mg capsule RxNorm: 483992 1 Capsule(s) PO Q12H 018 2017 Inactive Singulair 10 mg tablet RxNorm: 727177 1 Tablet(s) PO daily 018 2018 Inactive Ventolin HFA 90 mcg/actuation aerosol inhaler RxNorm: 5075130 2 Puff(s) INH QID 018 2018 Inactive Singulair 10 mg tablet RxNorm: 539836 1 Tablet(s) PO daily 018 2017 Inactive buspirone 7.5 mg tablet RxNorm: 904488 1 Tablet(s) PO BID 018 2017 Inactive Prozac 10 mg capsule RxNorm: 679827 1 Capsule(s) PO daily 018 2017 Inactive diclofenac sodium 75 mg tablet,delayed release RxNorm: 138518 1 Tablet(s) PO BID 018 2017 Inactive lisinopril 2.5 mg tablet RxNorm: 701640 1 Tablet(s) PO daily 018 2017 Inactive Neilmed Pediatric Sinus Rinse Refill packet RxNorm: 1 Unit Dose NASAL PRN 018 2021 Inactive metoprolol succinate ER 50 mg tablet,extended release 24 hr RxNorm: 872744 1 Tablet(s) PO daily 018 2017 Inactive levothyroxine 50 mcg tablet RxNorm: 144767 1 Tablet(s) PO daily 018 2017 Inactive TRUEplus Lancets 30 gauge RxNorm: 1 Lancets Miscellaneous QAM 018 2017 Inactive 100/box Ventolin HFA 90 mcg/actuation aerosol inhaler RxNorm: 804875 2 Puff(s) INH QID 018 2017 Inactive Aleve 220 mg capsule RxNorm: 0143090 1 Capsule(s) PO BID 018 2018 Inactive ranitidine 150 mg tablet RxNorm: 841498 1 Tablet(s) PO BID 018 2017 Inactive gabapentin 300 mg capsule RxNorm: 772266 1 Capsule(s) PO TID as needed 018 2017 Inactive atorvastatin 20 mg tablet RxNorm: 693451 1 Tablet(s) PO QHS 018 2017 Inactive True Metrix Glucose Test Strip RxNorm: 1 Test Strips Miscellaneous QAM 018 2017 Inactive 50/container Calcium 600-D3 Plus 600 mg calcium-800 unit-50 mg tablet RxNorm: 1 Tablet(s) PO daily take an additonal tablet for itching. 018 2017 Inactive hydrochlorothiazide 12.5 mg tablet RxNorm: 118402 1 Tablet(s) PO QAM 018 2017 Inactive Flintstones Complete (iron) 18 mg iron chewable tablet RxNorm: 1 Tablet(s) PO daily 018 2017 Inactive True Metrix Glucose Meter RxNorm: miscellaneous 019 2018 Inactive sertraline 50 mg tablet RxNorm: 238847 1 Tablet(s) PO daily 020 2019 Inactive loperamide 2 mg tablet RxNorm: 302278 oral 019 2018 Inactive d-mannose oral powder RxNorm: PO 018 2021 Inactive Symbicort 160 mcg-4.5 mcg/actuation HFA aerosol inhaler RxNorm: 3128745 2 Puff(s) INH BID 019 2018 Inactive Medication Administered No Medication Administered data Procedures Procedure Codes Date Inocente Fany Assessment CPT-4: DSWA 04/02 Patient Health Questionnaire CPT-4: DPHQ Patient Health Questionnaire Little interest or pleasure [...] let yourself or family down?/0 = Not atall, Trouble concentrating on things, such as reading a newspaper or watching television?/0 = Not at all, Moving or speaking so slowly that other people noticed? Or the opposite?/0 = Not at all, Thoughts that you would be better off , or of hurting yourself in some way?/0 = Not at all, Score:/0-4 = Negative for depression- NO PLAN NEEDEDCPT-4: JFHDGtwvgek19/18/2022 [place] Fany Assessment CPT-4: DMJRBaktjzv40/18/2022nnual Wellness Visit (Subsequent Visit)CPT-4: C776463atient Health QuestionnaireCPT-4: DPHQ10/07/2021 Frailty ScreeningCPT-4: SFD05/20/2021HypertensionCPT-4: HTN04/01/2021Tobacco Assessment/ScreeningCPT-4: TCA03/13/2021atient Health QuestionnaireCPT-4: DPHQ 03/13/2021Mini Mental State ExamCPT-4: DMMA01/29/2021nnual Wellness Visit (Subsequent Visit)CPT-4: T318938dvanced Care PlanningCPT-4: VACP 01/13/2021Fall Risk AssessmentSNOMED CT: 891726602 CPT-4: DFRA01/13/2021em[place] Fany AssessmentCPT-4: DSWA12/17/2020Urinalysis, dip stickCPT-4: 384065009/24/2020Patient Health QuestionnaireCPT-4: DPHQ 08/19/2020ElectrocardiogramCPT-4: 5884768Tobacco Assessment/Screening CPT-4: TCA01/01/2020Fall Risk AssessmentSNOMED CT: 088497924 CPT-4: DFRA01/01/2020Functional AssessmentCPT-4: DFA01/01/2020[place] Fany AssessmentCPT-4: DSWA11/28/2019Patient Health QuestionnaireCPT-4: DPHQ11/28/2019 [place] Fany AssessmentCPT-4: DSWA10/17/2019HypertensionCPT-4: HTN10/17/[address]: 188557701 CPT-4: DFRA09/19/2019Functional AssessmentCPT-4: DFA111/20/2018Urinalysis, dip stickCPT-4: 2972733Tobacco Assessment/ScreeningCPT-4: TCA05/24/2019 Patient Health QuestionnaireCPT-4: DPHQ05/24/2019AHA/REBECCA Classification AssessmentCPT-4: DAHA04/25/2019Controlled Substance ReportCPT-4: CTRSU04/25/2019 Urinalysis, dip stickCPT-4: 252279203/28/2019Urinalysis, dip stickCPT-4: 17343 03/28/20197903J8E-HfhkwzdamiblifxJQK-9: 06821UcmzufvL9G-UpyoxbxruephazzTCQ-8: 20521 CtwbrvsI6J-RdrfooxovabqloaIBI-4: 17679MzzpgefK9U-FvxkktliyrgelvvOJR-3: 34462 OfpizksG4D-ThzmuhgnharxqkjAEQ-9: 17000BmzdzrkL7X-YevhyyxnbeyjeuuTFO-6: 00035 LbxtsibL8X-NukekcpjyyffefpVGP-9: 01994OgsvrmpA0S-GjfihvemgsoxwguFIA-0: 16088 IzaenvwF9D-NpprqsvlitmtplbBDN-1: 88709WbnhrjmUiezwdehby ReferralSNOMED CT: 971316617 CPT-4: O22Rfcqyzz Vital Signs Date Vital 04/19/2022 Blood Pressure 1: 102/82 Code: 8480-6 BMI: 55.1 Code: 17954-4 Heart Rate 1: 85 bpm Height: 4'11 Code: 8302-2 Respiratory Rate: 18 bpm SpO2: 97% Temperature: 36.5 (C) / 97.7 (F) Weight: 272 lbs 12 oz Code: 43984-3 Reason For Visit Reason For Visit Effective Dates Notes weight gain/obesity 04/19/2022 diabetes mellitus 04/19/2022 Encounters Encounter Performer Location Location Address Codes Magdi e ([id number]) HOME VISIT JULIA HUFF Diagnosis: Hypertension[ICD10: I10] Diagnosis: Type 2 diabetes mellitus with peripheral neuropathy[ICD10: E11.42] Diagnosis: Adult BMI 50.0-59.9 kg/sq m[ICD10: Z68.43] Diagnosis: Hyperlipidemia, mixed[ICD10: E78.2]Chivo Elizabeth [id number] [place] [address] 59000JDH-1: [id number] Plan of Care Planned Activity Notes Codes Status Date Visit Plan: I10 Essential (prima ry) hypertension, BP within goal continue lisinopril, HCTZ 07/02/20 Echo: EF 60%, mild conc. LVH 05/14/20 EKG: NSR 05/14/20 Noct. Pulse Ox.: 7 min. < 89% SpO2 continue with [facility] Ex[employer]ator Josh Simon MD E11.42 Type 2 diabetes mellitus with peripheral neuropathy, Z68.43 Adult BMI 50.0-59.9 kg/sq m glucose controlled, however body weight remains an issue glucose monitor averaging 100s-130s - bid increase Ozempic to maximum: 1mg per week, continue gabapentin 11/02/21 HgbA1C 5.6, GFR >100 continue with Kerrie Pandya OD at [facility] (06/30/21) encouraged to increase daily step count E78.2 Hyperlipidemia, mixed atorvastatin was d/c'd due to elevated LFTs- however based on further info, pt had been taking a diet supplement known in increase liver enzymes 11/02/21 LDL 181, triglyc. 193 patient has re-started atorvastatin per prior visit recommendations continue Mediterranean eating check liver enzymes at next visit F43.23 Adjustment disorder with mixed anxiety and depressed mood continue taking sertraline, buspirone pt is being weaned off of Seroquel and replaced with Rexulti in an attempt to assist with weight loss continue with Marian Obrien in [place] Below historical items not addressed this visit: Z00.00-V70.9 (Z00.00-V70.9) Encounter for general adult medical examination without abnormal findings 02/11/22 AWV complete G47.33 Obstructive sleep apnea (adult), J45.909 Asthma breathing stable CPAP use encouraged but pt seems uncertain of benefit continue utilization of Symbicort, albuterol via neb. or MDI q 4 hrs. prn dyspnea, continue with [employer] Jose BOWMAN E03.9 Hypothyroidism continue levothyroxine 11/02/21 TSH wnl E55.9 Vitamin D deficiency begin cholecalciferol 11/02/21 vit. D 20.4, PTH 133 (>88), B12 184 diclogenac top gel 1% qid prn arthralgia/myalgia K21.9 GERD (gastroesophageal reflux disease) continue omeprazole, famotidine, probiotic R55 Syncope and collapse, Z84.89 Family history of seizures continue with [facility] with evaluation with 5 day EEG N39.46 Mixed incontinence, R33.9 Urinary retention with incomplete bladder emptying Z98.890-V45.89 History of bladder surgery Myrbetriq qd use of incontinence supplies 01/05/21 urinary stimulator implant - symptoms improved, urinating ~ 5 times per day continue with Urologist 04/19/2022atient Education: DvrbeygeDfhtuwupp39/18/2022atient Education: Patient Medication GtlyvvzWchvzmfts96/18/2022atient Education: Weight Gain Igtzxlwff43/18/2022ppointment: Chivo Bishop WPtel: [address] [place] [address] [id number]: Mikey Nair WPtel: [address] [facility] [id number]: Chivo Bishop WPtel: [address] [place] [address] [id number]: Chivo Bishop WPtel: [address] [place] [address] [id number]: Chivo Bishop WPtel: [address] [place] [address] USETV111/11/2020ppointment: Chivo Bishop WPtel: [address] [place] [address] USETV110/13/2020ppointment: Chivo Bishop WPtel: [address] [place] [address] USETV1ppointment: Chivo Bishop WPtel: [address] [place] [address] [id number]: Anna Culver WPtel: [phone] [facility] [address] [place] [address] USETV06/02/2021ppointment: Chivo Bishop WPtel: [phone] [place] [address] [place] [address] USETV05/20/2021ppointment: Anna Culver WPtel: [phone] [place] [address] [place] [address] USETV04/28/2021ppointment: Chivo Bishop WPtel: [phone] [place] [address] [place] [address] USETV04/15/2021ppointment: Anna Culver WPtel: [address] [place] [address] [id number]: Anna Culver WPtel: [address] [place] [address] USETV03/24/2021ppointment: Anna Culver WPtel: [phone] [place] [address] USET03/13/2021ppointment: Anna Culver WPtel: [address] [place] [address] [place] [address] [id number]: Chivo Bishop WPtel: [address] [place] [address] [place] [address] [id number]: Anna Culver WPtel: [phone] [place] [address] [place] [address] USETV01/13/2021ppointment: Anna Culver WPtel: [phone] [place] [address] [place] [address] [id number]: Chivo Bishop WPtel: [phone] [place] [address] [place] [address] USETV02ppointment: Anna Culver WPtel: [phone] [place] [address] [address] [place] [address] USETV02ppointment: Anna Culver WPtel: [phone] [place] [address] [address] [place] [address] [id number]: Anna Culver WPtel: [address] [place] [address] [address] [place] [address] [id number]/25/2019Appointment: Anna Culver WPtel: [phone] [place] [address] [place] [address] USETV110/26/2019Appointment: Anna Culver WPtel: [phone] [place] [address] USETV110/19/2019Appointment: Anna Culver WPtel: [address] [place] [address] USETV1Appointment: Anna Culver WPtel: [phone] [place] [address] USETV1Appointment: Gianna Birmingham MCt: [address] [facility] [address] [id number]: Anna Culver WPtel: [phone] [place] [address] [id number]: Anna Culver WPtel: [address] [place] [address] [address] [place] [address] NWU32838/09/2020Appointment: Anna Culver WPtel: [phone] [place] [address] [address] [place] [address] [id number]/Appointment: Anna Culver WPtel: [address] [place] [address] [id number]: Anna Culver WPtel: [phone] [place] [address] [id number]: Anna Culver WPtel: [phone] [place] [address] [id number]: Anna Culver WPtel: [phone] [place] [address] [id number]: Anna Culver WPtel: [phone] [place] [address] [id number]: Anna Culver WPtel: [phone] [place] [address] [id number]: Anna Culver WPtel: [address] [place] [address] [id number]/20/2018Appointment: Sudha Hernadez WPtel: [address] [facility] [id number]: Sudha Hernadez WPtel: [address] [facility] [id number]: Charlene Oropeza WPtel: [address] [facility] [id number]: Enedelia Delgado45Appointment: Charlene Oropeza WPtel: [address] [facility] [address] [id number]: Rasta Palafox WPtel: [address] [facility] [address] [id number]: Rasta Palafox WPtel: [address] [facility] [address] [id number]: Rasta Palafox WPtel: [address] [facility] [address] [id number]: Rasta Palafox WPtel: [address] [facility] [address] [id number]: Pending Gynecology Referral InformationReferral ProcessedReferral: Pending Pulmonology Referral InformationReferralProcessed Referral: Pending Psychiatry Referral InformationReferralInitiatedReferral: Pending Respiratory Services Referral InformationReferralInitiatedReferral: Pending Ophthalmology Referral InformationReferralInitiatedReferral: [facility] WPtel: [address] [place] [address] USWriter placed a call out to the patient to notify her that it has been recommended that she be seenby 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 Patient agreed to be seen, does not have a provider of choice and no transportationissues. Heel Cementer Machine faxed referral and clinical notes to [facility] in [place], [place] near the patient's home. Patient to [...] seen and prefers a provider in the [place] or [facility]. Heel Cementer Machine placed a call out to everyone listed in the area and the only location that was able to accept the patient's insurance was [address] [address] and spoke with Maylin. Maylin asked that the patient's referral, face sheet and visit notes be faxed to . He[employer] faxed over requested documents. Patient appointment confirmation letter generated and mailed to her home address. Patient to call to schedule an appointment.ProcessedReferral: [facility] WPtel: [address] [id number] USPatient notified that it has been advised that she be seen by Neurology. Patient agreed to be seen and prefers to be seen by a provider in the [place], [place] area. Patient denies any concerns with transportation, and prefers to schedule her own appointment. Heel C[employer]er Machine placed a call out to [facility] and spoke with Neeraj Mcfarland: who confirmed that their office is able to acceptnew patients and the patient's insurance. After confirming the providers fax number, play writer faxed over the patient's referral, and most recent clinical notes to F: . Patient to call to schedule her appointment. Appointment confirmation letter mailed to the patient's home address. CCDA completed.ProcessedReferral: Pending Nephrology Referral InformationReferralProcessedReferral: Pending Podiatry Referral Information ReferralInitiatedReferral: Pending Podiatry Referral InformationReferral ProcessedReferral: Pending Podiatry Referral InformationReferralInitiated Instructions Comment Date . I10 Essential (primary) hy pertension, BP within goal; continue lisinopril, HCTZ; 07/02/20 Echo: EF 60%, mild conc. LVH; 05/14/20 EKG: NSR; 05/14/20 Noct. Pulse Ox.: 7 min. < 89% SpO2; continue with [facility] Rod[facility] Exterminator Josh Simon MD; E11.42 Type 2 diabetes mellitus with peripheral neuropathy, Z68.43 Adult BMI 50.0-59.9 kg/sq m glucose controlled, however body weight remains an issue; glucose monitor averaging 100s-130s - bid; increase Ozempic to maximum: 1mg per week, continue gabapentin; 11/02/21 HgbA1C 5.6, GFR >100; continue with Kerrie Pandya OD at [facility] (06/30/21); encouraged to increase daily step count E78.2 Hyperlipidemia, mixed atorvastatin was d/c'd due to elevated LFTs- however based on further info, pt had been taking a diet supplement known in increase liver enzymes 11/02/21 LDL 181, triglyc. 193 patient has re-started atorvastatin per prior visit recommendations continue Mediterranean eating; check liver enzymes at next visit F43.23 Adjustment disorder with mixed anxiety and depressed mood continue taking sertraline, buspirone; pt is being weaned off of Seroquel and replaced with Rexulti in an attempt to assist with weight loss; continue with [facility] in [place]; Below historical items not addressed this visit: Z00.00-V70.9 (Z00.00-V70.9) Encounter for general adult medical examination without abnormal findings 02/11/22 AWV complete G47.33 Obstructive sleep apnea (adult), J45.909 Asthma breathing stable CPAP use encouraged but pt seems uncertain of benefit; continue utilization of Symbicort, albuterol via neb. or MDI q 4 hrs. prn dyspnea, continue with [employer] Jose BOWMAN; E03.9 Hypothyroidism continue levothyroxine; 11/02/21 TSH wnl; E55.9 Vitamin D deficiency begin cholecalciferol; 11/02/21 vit. D 20.4, PTH 133 (>88), B12 184; diclogenac top gel 1% qid prn arthralgia/myalgia; K21.9 GERD (gastroesophageal reflux disease) continue omeprazole, famotidine, probiotic; R55 Syncope and collapse, Z84.89 Family history of seizures continue with [facility]ist with evaluation with 5 day EEG; N39.46 Mixed incontinence, R33.9 Urinary retention with incomplete bladder emptying; Z98.890-V45.89History of bladder surgery Myrbetriq qd; use of incontinence supplies; 01/05/21 urinary stimulator implant - symptoms improved, urinating ~ 5 times per day; continue with Urologist; 04/19/2022 Medical Equipment No Medical Equipment data Advance Directives No Advance Directive data
--- OUTSIDE RECORDS SUMMARY | 2022-04-20 20:00 | XMS_ITS | CCD ---
Author Name Chivo Bishop [place] Address [address] [place] [address] Phone Organization [facility] Phone Care Team Providers Care Ax Survey Worker Name Role Phone Palomo KING, Anna Primary Care Provider Unav ailable Unavailable Chronic Care Management Unavaila ble Summary Purpose DataExchange Insurance Providers Payer name Policy type / Coverage type Covered republican ID Effective Begin Date Effective End Date SUKI MAYO [id number] Unknown Unknown Family history Mother Diagnosis Age [...] 05/31/2018 Education level Unknown Some High School 10th05/31/20189615VausbpmyrdVdcrheaEvqkgfxgux78/29/2018Tobacco historySNOMED CT: [id number] never smoked or chewed cneftwf6005/31/2018Alcohol historySNOMED CT: 417428620Xctwj drinks toyplbc1505/31/2018Has the patient ever used illegal drugs? UnknownHas never used illegal drugs05/31/2018DNR Order/ Advanced Directive UnknownFull Code05/31/2018 Allergies, Adverse Reactions, Alerts Substance Reaction Codes Entered Date Inactivated Date Status OxyContin itch, RxNorm: 815932 01/13/2021 No Inactive Da te Active *No known food allergies Byiqaxl0709/06/2018No Inactive DateActiveMethylprednisolonehivesRxNorm: 6902 09/06/2018No Inactive DateActive Problems Condition Codes Effective Dates Condition St atus Abscess ICD-10: L02.91 ICD-9: 682.907/2ActiveAdjustment disorder with mixed anxiety and depressed moodICD-10: F43.23 ICD-9: 309.2812ActiveAdult BMI 50.0-59.9 kg/sq mICD-10: Z68.43 ICD-9: V85.4308/ActiveHyperlipidemia, mixedICD-10: E78.2 ICD-9: 272.203/2ActiveHypertensionICD-10: I10 ICD-9: 401.903/ctiveType 2 diabetes mellitus with peripheral neuropathy ICD-10: E11.42 ICD-9: 250.6002Active(Z00.00-V70.9) Encounter for general adult medical examination without abnormal findingsICD-10: Z00.00 ICD-9: V70.905/2ActiveAllergic rhinitisICD-10: J30.9 ICD-9: 477.903/2ActiveObstructive sleep apnea (adult) (pediatric)ICD-10: G47.33 ICD-9: 327.2309/ActiveAsthmaICD-10: [...] ICD-9: V79.004/1ResolvedAnorexiaICD-10: R63.0 ICD-9: 783.003/1ResolvedBlisterICD-10: T14.8XXA ICD-9: 919.1ResolvedChronic kidney disease, stage 2 (mild)ICD-10: N18.2 ICD-9: 585.2011ResolvedCOVID-19 virus RNA test result positive at limit of detectionICD-10: U07.1 ICD-9: 079.8909/1ResolvedDiarrheaICD-10: R19.7 ICD-9: 787.9111/1ResolvedDyspnea, unspecifiedICD-10: R06.00 ICD-9: 786.0905/06/2019ResolvedElevated liver enzymesICD-10: R74.8 ICD-9: 790.5041ResolvedEncounter for screening for tobacco useICD-10: Z01.89 ICD-9: V72.8503ResolvedEncounter for screening, unspecifiedICD-10: Z13.9 ICD-9: V82.912ResolvedFamily history of seizuresICD-10: Z84.89 ICD-9: V19.807/1ResolvedHyperlipidemia, unspecifiedICD-10: E78.5 ICD-9: 272.408ResolvedLong term (current) use of non-steroidal anti- inflammatories (NSAID)ICD-10: Z79.1 ICD-9: V58.6409/08/2018ResolvedPatient Not SeenICD-10: UXZ.01 ICD-9: XZ0.107/ResolvedPatient not seenICD-10: UXZ.01 ICD-9: UXZ.0112/1ResolvedUpper respiratory infectionICD-10: J06.9 ICD-9: 465.9081ResolvedSyncope and collapseICD-10: R55 ICD-9: 780.203ActivePost-traumatic stress disorder, unspecifiedICD-10: F43.10 ICD-9: 309.8112ActiveHistory of bladder surgeryICD-10: Z98.890 ICD-9: V45.8904ctiveUrinary retention with incomplete bladder emptying ICD-10: R33.9 ICD-9: 788.2101ActiveEncounter for immunizationICD-10: Z23 ICD-9: V04.8109InactiveApnea, not elsewhere classifiedICD-10: R06.81 ICD-9: 786.0305InactiveChest pain, unspecifiedICD-10: R07.9 ICD-9: 786.5002InactiveChronic kidney disease, unspecifiedICD-10: N18.9 ICD-9: 585.909InactiveEncounter for immunizationICD-10: Z23 ICD-9: V03.907/InactiveEncounter for preprocedural cardiovascular examinationICD-10: Z01.810 ICD-9: V72.8106InactiveHeadacheICD-10: R51 ICD-9: 784.001InactiveOther long term care pharmacist (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ICD-10: Z79.899 ICD-9: V58.6907/InactiveType 2 [...] incontinenceICD-10: R15.9 ICD-9: 787.6003/ActiveMixed incontinenceICD-10: N39.46 ICD-9: 788.3308ActiveAbnormal electrocardiogram [ECG] [EKG]ICD-10: R94.31 ICD-9: 794.3108Active Medications Medication Codes Instructions Start Date Stop Date Status Fill Instructions Cleocin T 1 % lotion RxNorm: 240719 Take 2 Gram(s) Topical every day 022 2021 Inactive Ozempic 1 mg/dose (4 mg/3 mL) subcutaneous pen injector RxNorm: 3930626 Take 1 Unit Dose Subcutaneous QWeek 022 2021 Inactive Ozempic 0.25 mg or 0.5 mg (2 mg/1.5 mL) subcutaneous pen injector RxNorm: 1019419 INJECT 0.5 MGS SUBCUTANEOUSLY EVERY WEEK 022 2021 Inactive omeprazole 20 mg capsule,delayed release RxNorm: 697725 Take 1 Capsule(s) Oral every evening 2021 Inactive levothyroxine 50 mcg tablet RxNorm: 084076 Take 1 Tablet(s) Oral every day 2021 Inactive atorvastatin 20 mg tablet RxNorm: 470497 Take 1 Tablet(s) Oral every night at bedtime 2021 Inactive This refill negates all other refills of this medication lisinopril 2.5 mg tablet RxNorm: 039053 Take 1 Tablet(s) Oral every day 2021 Inactive gabapentin 300 mg capsule RxNorm: 298275 Take 1 Capsule(s) Oral three times a day 2021 Inactive montelukast 10 mg tablet RxNorm: 907198 Take 1 Tablet(s) Oral every day 2021 Inactive cholecalciferol (vitamin D3) 50 mcg (2,000 unit) tablet RxNorm: 813214 Take 1 Tablet(s) Oral every day 2022 Inactive Myrbetriq 50 mg tablet,extended release RxNorm: 8380252 1 Tablet(s) Oral every day No Stop Date Active Ozempic 0.25 mg or 0.5 mg (2 mg/1.5 mL) subcutaneous pen injector RxNorm: 2539134 inject 0.5 milligrams subcutaneously every week 022 2021 Inactive Ozempic 0.25 mg or 0.5 mg (2 mg/1.5 mL) subcutaneous pen injector RxNorm: 1135859 Take 0.5 Capsule(s) Injection once a week 2021 Inactive omeprazole 20 mg capsule,delayed release RxNorm: 520741 Take 1 Capsule(s) Oral every evening 021 2020 Inactive Ozempic 0.25 mg or 0.5 mg (2 mg/1.5 mL) subcutaneous pen injector RxNorm: 6836008 Take 0.25 Milligram(s) Subcutaneous once a week 2021 Inactive Easy Touch Alcohol Prep Pads RxNorm: 977347 USE DIRECTED EACH MORNING 021 2021 Inactive Probiotic 10 billion cell capsule RxNorm: 0775570 Take 1 Capsule(s) Oral every day 2021 Inactive levothyroxine 50 mcg tablet RxNorm: 750033 Take 1 Tablet(s) Oral every day 2020 Inactive Acid Gambling Cashier (famotidine) 20 mg tablet RxNorm: 588114 Take 1 Tablet(s) Oral every morning 2020 Inactive Heartburn Relief (famotidine) 10 mg tablet RxNorm: 032244 Take 1 Tablet(s) Oral QAM 2020 Inactive levothyroxine 50 mcg tablet RxNorm: 004061 Take 1 Tablet(s) Oral QD 2020 Inactive Singulair 10 mg tablet RxNorm: 312904 TAKE (1) TABLET BY MOUTH DAILY 021 2020 Inactive metformin 1,000 mg tablet RxNorm: 049913 1 Tablet(s) Oral two times a day 021 2021 Inactive lisinopril 2.5 mg tablet RxNorm: 072025 Take 1 Tablet(s) Oral every day 2020 Inactive hydrochlorothiazide 25 mg tablet RxNorm: 467561 Take 1 Tablet(s) Oral every day 021 2020 Inactive ondansetron 4 mg disintegrating tablet RxNorm: 492820 1 Tablet(s) Oral two times a day 021 2020 Inactive Sudafed 12 Hour 120 mg tablet,extended release RxNorm: 4955789 TAKE 1 TABLET BY MOUTH EVERY 12 HOURS NEEDED 021 2021 Inactive Heartburn Relief (famotidine) 10 mg tablet RxNorm: 319252 Take 1 Tablet(s) Oral every morning 021 2020 Inactive omeprazole 20 mg capsule,delayed release RxNorm: 910403 1 Capsule(s) Oral every evening 021 2020 Inactive sertraline 100 mg tablet RxNorm: 575031 2 Tablet(s) Oral every day 021 2020 Inactive levothyroxine 50 mcg tablet RxNorm: 237678 TAKE (1) TABLET BY MOUTH DAILY 021 2020 Inactive metformin 500 mg tablet RxNorm: 989824 1 Tablet(s) Oral two times a day take with 500mg to equal 1000mg 021 2020 Inactive gabapentin 300 mg capsule RxNorm: 181650 TAKE 1 CAPSULE BY MOUTH THREE TIMES A DAY 021 2020 Inactive lisinopril 2.5 mg tablet RxNorm: 126681 TAKE 1 TABLET BY MOUTH DAILY 021 2020 Inactive gabapentin 300 mg capsule RxNorm: 216061 TAKE 1 CAPSULE BY MOUTH THREE TIMES A DAY 021 2020 Inactive Singulair 10 mg tablet RxNorm: 539156 TAKE (1) TABLET BY MOUTH DAILY 021 2020 Inactive metformin 1,000 mg tablet RxNorm: 354098 1 Tablet(s) Oral two times a day 021 2020 Inactive atorvastatin 40 mg tablet RxNorm: 818463 1 Tablet(s) Oral every day 021 2020 Inactive omeprazole 20 mg capsule,delayed release RxNorm: 641065 1 Capsule(s) Oral every evening 021 2020 Inactive famotidine 10 mg tablet RxNorm: 680847 1 Tablet(s) Oral every morning 021 2020 Inactive Alcohol Prep Pads RxNorm: 623431 USE EACH MORNING 021 2020 Inactive omeprazole 20 mg capsule,delayed release RxNorm: 474927 1 Capsule(s) Oral two times a day 021 2021 Inactive omeprazole 20 mg capsule,delayed release RxNorm: 021112 TAKE 1 CAPSULE BY MOUTH EVERY DAY 2021 Inactive Macrobid 100 mg capsule RxNorm: 419999 1 Capsule(s) Oral every 12 hours with food 2020 Inactive omeprazole 20 mg capsule,delayed release RxNorm: 387281 1 Capsule(s) Oral two times a day 2021 Inactive metformin 1,000 mg tablet RxNorm: 620001 1 Tablet(s) Oral two times a day 2020 Inactive start on September 11, 2020 metformin 500 mg tablet RxNorm: 453558 1 Tablet(s) Oral two times a day take with 500mg to equal 1000mg 2019 Inactive gabapentin 300 mg capsule RxNorm: 050963 TAKE 1 CAPSULE BY MOUTH THREE TIMES DAILY 2020 Inactive cetirizine 10 mg tablet RxNorm: 5890581 TAKE (1) TABLET BY MOUTH DAILY 2020 Inactive metformin 500 mg tablet RxNorm: 598870 1 Tablet(s) Oral two times a day 2019 Inactive loperamide 2 mg tablet RxNorm: 463520 1 Tablet(s) Oral as needed take one tablet after each loose stool, maximum of 8 tablets in 24 hours 2021 Inactive Sudafed 12 Hour 120 mg tablet,extended release RxNorm: 0577480 TAKE 1 TABLET BY MOUTH EVERY 12 HOURS NEEDED 2019 Inactive hydrochlorothiazide 25 mg tablet RxNorm: 938502 TAKE (1) TABLET BY MOUTH EVERY DAY 2019 Inactive omeprazole 20 mg capsule,delayed release RxNorm: 777036 TAKE 1 CAPSULE BY MOUTH EVERY DAY 2020 Inactive metformin 500 mg tablet RxNorm: 808181 1 Tablet(s) Oral every day 2019 Inactive True Metrix Glucose Test Strip RxNorm: 1 Test Strips Miscellaneous two times a day as needed No Stop Date Active metformin 500 mg tablet RxNorm: 538170 1 Tablet(s) Oral every day 020 2019 Inactive diclofenac sodium 75 mg tablet,delayed release RxNorm: 187433 1 Tablet(s) PO BID 2021 Inactive This refill negates all other refills of this medication Sudafed 12 Hour 120 mg tablet,extended release RxNorm: 2599645 TAKE 1 TABLET BY MOUTH EVERY 12 HOURS NEEDED 2019 Inactive True Metrix Glucose Test Strip RxNorm: 1 Test Strips Miscellaneous every morning 020 2019 Inactive 100/container True Metrix Glucose Test Strip RxNorm: 1 Test Strips Miscellaneous QAM 020 2019 Inactive 100/container loperamide 2 mg tablet RxNorm: 386509 1 Tablet(s) Oral as needed take one tablet after each loose stool, maximum of 8 tablets in 24 hours 2019 Inactive cetirizine 10 mg tablet RxNorm: 6475149 1 Tablet(s) PO daily 2019 Inactive loperamide 2 mg tablet RxNorm: 275909 1 Tablet(s) Oral as needed take one tablet after each loose stool, maximum of 8 tablets in 24 hours 020 2019 Inactive quetiapine 100 mg tablet RxNorm: 203265 1 Tablet(s) Oral every night at bedtime 2019 Inactive levothyroxine 50 mcg tablet RxNorm: 147779 1 Tablet(s) PO daily 2020 Inactive gabapentin 300 mg capsule RxNorm: 654880 1 Capsule(s) PO TID 2019 Inactive levothyroxine 50 mcg tablet RxNorm: 331543 1 Tablet(s) PO daily 020 2019 Inactive lisinopril 2.5 mg tablet RxNorm: 621043 1 Tablet(s) PO daily 020 2020 Inactive gabapentin 300 mg capsule RxNorm: 920273 1 Capsule(s) PO TID 2019 Inactive cetirizine 10 mg tablet RxNorm: 1366971 1 Tablet(s) PO daily 2019 Inactive Singulair 10 mg tablet RxNorm: 428678 1 Tablet(s) PO daily 2020 Inactive gentamicin 0.3 % eye drops RxNorm: 571624 1 Drop(s) ophthalmic (eye) four times a day 2019 Inactive gentamicin 0.3 % eye drops RxNorm: 620122 1 Drop(s) ophthalmic (eye) four times a day 2019 Inactive gentamicin 0.3 % eye drops RxNorm: 282929 1 Drop(s) ophthalmic (eye) four times a day 2019 Inactive hydrochlorothiazide 25 mg tablet RxNorm: 025924 1 Tablet(s) Oral every day 2019 Inactive Sudafed 12 Hour 120 mg tablet,extended release RxNorm: 1723840 TAKE (1) TABLET BY MOUTH EVERY 12 HOURS NEEDED 2019 Inactive loperamide 2 mg tablet RxNorm: 883733 1 Tablet(s) Oral as needed take one tablet after each loose stool, maximum of 8 tablets in 24 hours 020 2019 Inactive loperamide 2 mg tablet RxNorm: 978448 1 Tablet(s) Oral as needed take one tablet after each loose stool, maximum of 8 tablets in 24 hours 2019 Inactive atorvastatin 40 mg tablet RxNorm: 675972 1 Tablet(s) Oral every day 2020 Inactive quetiapine 100 mg tablet RxNorm: 021787 1 Tablet(s) Oral every night at bedtime 2019 Inactive sertraline 100 mg tablet RxNorm: 536528 1 Tablet(s) Oral 2019 Inactive omeprazole 20 mg capsule,delayed release RxNorm: 591957 1 Capsule(s) Oral every day 2019 Inactive amoxicillin 250 mg capsule RxNorm: 497346 1 Capsule(s) Oral three times a day 020 2019 Inactive multivitamin with iron-mineral tablet RxNorm: 1 Tablet(s) Oral every day 2021 Inactive cetirizine 10 mg tablet RxNorm: 7156192 1 Tablet(s) PO daily 2019 Inactive This refill negates all other refills of this medication. Please do not auto refill Singulair 10 mg tablet RxNorm: 238542 1 Tablet(s) PO daily 2019 Inactive This refill negates all other refills of this medication gabapentin 300 mg capsule RxNorm: 903392 1 Capsule(s) PO TID 2019 Inactive lisinopril 2.5 mg tablet RxNorm: 764573 1 Tablet(s) PO daily 2019 Inactive levothyroxine 50 mcg tablet RxNorm: 323272 1 Tablet(s) PO daily 2019 Inactive This refill negates all other refills of this medication hydrochlorothiazide 25 mg tablet RxNorm: 470097 1 Tablet(s) Oral every day 2019 Inactive fenugreek seed extract 500 mg capsule RxNorm: 1 Capsule(s) Oral three times a day 2021 Inactive Alcohol Prep Pads RxNorm: 644879 1 Patch TOP QAM 020 2020 Inactive loperamide 2 mg tablet RxNorm: 054730 1 Tablet(s) Oral as needed take one [...] 2019 Inactive hydrochlorothiazide 25 mg tablet RxNorm: 757568 1 Tablet(s) Oral every day 2019 Inactive Sudafed 12 Hour 120 mg tablet,extended release RxNorm: 1636822 1 Tablet(s) Oral every 12 hours as needed 2018 Inactive omeprazole 20 mg capsule,delayed release RxNorm: 446862 1 Capsule(s) Oral every day 019 2019 Inactive Sudafed 12 Hour 120 mg tablet,extended release RxNorm: 8252630 1 Tablet(s) Oral every 12 hours as needed 2018 Inactive pantoprazole 40 mg tablet,delayed release RxNorm: 722073 1 Tablet(s) Oral every day 2018 Inactive discontinue any other H2Blkr. and PPI albuterol sulfate 2.5 mg/3 mL (0.083 %) solution for nebulization RxNorm: 155733 1 Vial Inhalation every four hours as needed as needed for dyspnea 2019 Inactive 60/box. This refill negates all other refills of this medication. Please do not fill early. Please do not auto refill. Symbicort 160 mcg-4.5 mcg/actuation HFA aerosol inhaler RxNorm: 6861370 2 Puff(s) INH BID No Stop Date Active Alcohol Prep Pads RxNorm: 019028 1 Patch TOP QAM 019 2019 Inactive Ventolin HFA 90 mcg/actuation aerosol inhaler RxNorm: 898658 2 Puff(s) INH QID 2019 Inactive Please do not fill early. Please do not auto refill. This refill negates all other refills of this medication True Metrix Glucose Test Strip RxNorm: 1 Test Strips Miscellaneous QAM 019 2019 Inactive 100/container atorvastatin 40 mg tablet RxNorm: 150507 1 Tablet(s) Oral every day 019 2019 Inactive buspirone 7.5 mg tablet RxNorm: 653320 1 Tablet(s) PO BID 019 2020 Inactive This refill negates all other refills of this medication hydrochlorothiazide 12.5 mg tablet RxNorm: 370378 1 Tablet(s) PO QAM 019 2019 Inactive levmetamfetamine 50 mg nasal inhaler RxNorm: 1 Unit(s) NASAL Q3-4H Do not use more than every 3 hours or 8 times/24hours 019 2021 Inactive Please do not auto refill. This refill negates all other refills of this medication Ventolin HFA 90 mcg/actuation aerosol inhaler RxNorm: 983746 2 Puff(s) INH QID 2018 Inactive Please do not fill early. Please do not auto refill. This refill negates all other refills of this medication Singulair 10 mg tablet RxNorm: 859278 1 Tablet(s) PO daily 019 2019 Inactive This refill negates all other refills of this medication cetirizine 10 mg tablet RxNorm: 1464058 1 Tablet(s) PO daily 019 2019 Inactive This refill negates all other refills of this medication. Please do not auto refill levothyroxine 50 mcg tablet RxNorm: 566135 1 Tablet(s) PO daily 019 2019 Inactive This refill negates all other refills of this medication diclofenac sodium 75 mg tablet,delayed release RxNorm: 324549 1 Tablet(s) PO BID 019 2019 Inactive This refill negates all other refills of this medication ranitidine 150 mg tablet RxNorm: 608428 1 Tablet(s) PO BID 019 2018 Inactive This refill negates all other refills of this medication Calcium 600-D3 Plus (mag-zinc) 600 mg calcium-800 unit-50 mg tablet RxNorm: 1 Tablet(s) PO daily take an additonal tablet for itching. 2018 Inactive This refill negates all other refills of this medication albuterol sulfate 2.5 mg/3 mL (0.083 %) solution for nebulization RxNorm: 057256 1 Vial INH QID 019 2018 Inactive 60/box. This refill negates all other refills of this medication. Please do not fill early. Please do not auto refill. lisinopril 2.5 mg tablet RxNorm: 556646 1 Tablet(s) PO daily 019 2019 Inactive gabapentin 300 mg capsule RxNorm: 611374 1 Capsule(s) PO TID 019 2019 Inactive atorvastatin 20 mg tablet RxNorm: 577136 1 Tablet(s) PO QHS 2018 Inactive This refill negates all other refills of this medication TRUEplus Lancets 30 gauge RxNorm: 1 Lancets Miscellaneous QAM 019 2018 Inactive 100/box gabapentin 300 mg capsule RxNorm: 263952 1 Capsule(s) PO TID 2018 Inactive Flintstones Complete (iron) 18 mg iron chewable tablet RxNorm: 1 Tablet(s) PO daily 019 2021 Inactive This refill negates all other refills of this medication gabapentin 300 mg capsule RxNorm: 374947 1 Capsule(s) PO TID as needed 2018 Inactive True Metrix Glucose Test Strip RxNorm: 1 Test Strips Miscellaneous QAM 019 2018 Inactive 100/container Alcohol Prep Pads RxNorm: 396191 1 Patch TOP QAM 2018 Inactive TRUEplus Lancets 30 gauge RxNorm: 1 Lancets Miscellaneous QAM 019 2018 Inactive 100/box lisinopril 2.5 mg tablet RxNorm: 444714 1 Tablet(s) PO daily 019 2018 Inactive ranitidine 150 mg tablet RxNorm: 145035 1 Tablet(s) PO BID 019 2018 Inactive This refill negates all other refills of this medication albuterol sulfate 2.5 mg/3 mL (0.083 %) solution for nebulization RxNorm: 428605 1 Vial INH QID 019 2018 Inactive [...] this medication gabapentin 300 mg capsule RxNorm: 656495 1 Capsule(s) PO TID as needed 019 2018 Inactive atorvastatin 20 mg tablet RxNorm: 942926 1 Tablet(s) PO QHS 019 2018 Inactive This refill negates all other refills of this medication trazodone 50 mg tablet RxNorm: 611699 1 Tablet(s) PO QHS 019 2018 Inactive This refill negates all other refills of this medication Ventolin HFA 90 mcg/actuation aerosol inhaler RxNorm: 581953 2 Puff(s) INH QID 019 2018 Inactive Please do not fill early. Please do not auto refill. This refill negates all other refills of this medication Calcium 600-D3 Plus 600 mg calcium-800 unit-50 mg tablet RxNorm: 1 Tablet(s) PO daily take an additonal tablet for itching. 019 2018 Inactive This refill negates all other refills of this medication Singulair 10 mg tablet RxNorm: 294160 1 Tablet(s) PO daily 019 2018 Inactive This refill negates all other refills of this medication buspirone 7.5 mg tablet RxNorm: 999379 1 Tablet(s) PO BID 019 2018 Inactive This refill negates all other refills of this medication diclofenac sodium 75 mg tablet,delayed release RxNorm: 248595 1 Tablet(s) PO BID 019 2018 Inactive This refill negates all other refills of this medication hydrochlorothiazide 12.5 mg tablet RxNorm: 032074 1 Tablet(s) PO QAM 019 2018 Inactive metoprolol succinate ER 50 mg tablet,extended release 24 hr RxNorm: 074400 1 Tablet(s) PO daily 019 2018 Inactive This refill negates all other refills of this medication levothyroxine 50 mcg tablet RxNorm: 745429 1 Tablet(s) PO daily 019 2018 Inactive This refill negates all other refills of this medication cetirizine 10 mg tablet RxNorm: 8001619 1 Tablet(s) PO daily 019 2018 Inactive This refill negates all other refills of this medication. Please do not auto refill Flintstones Complete (iron) 18 mg iron chewable tablet RxNorm: 1 Tablet(s) PO daily 019 2018 Inactive This refill negates all other refills of this medication buspirone 7.5 mg tablet RxNorm: 758482 1 Tablet(s) PO BID 019 2018 Inactive cetirizine 10 mg tablet RxNorm: 6476046 1 Tablet(s) PO daily 2018 Inactive Guaiasorb DM 10 mg-100 mg/5 mL oral liquid RxNorm: 441488 10 Milliliter(s) PO As needed every 4 hr 2018 Inactive Vicks Vaporub 4.7 %-1.2 %-2.6 % topical ointment RxNorm: 0429783 1 Application TOP TID 2018 Inactive levmetamfetamine 50 mg nasal inhaler RxNorm: 1 Unit(s) NASAL Q3-4H 2017 Inactive sertraline 50 mg tablet RxNorm: 305282 1 Tablet(s) PO daily 018 2018 Inactive Please note dose trazodone 50 mg tablet RxNorm: 462570 1 Tablet(s) PO QHS 018 2018 Inactive sertraline 50 mg tablet RxNorm: 697456 1 Tablet(s) PO daily 018 2017 Inactive amoxicillin 500 mg tablet RxNorm: 294372 1 Tablet(s) PO Q12H 018 2017 Inactive albuterol sulfate 2.5 mg/3 mL (0.083 %) solution for nebulization RxNorm: 002048 1 Vial INH QID 018 2018 Inactive 60/box. Please do not fill early. Please do not auto refill. Prozac 10 mg capsule RxNorm: 148450 1 Capsule(s) PO daily 018 2017 Inactive buspirone 7.5 mg tablet RxNorm: 748894 1 Tablet(s) PO BID 018 2018 Inactive gabapentin 300 mg capsule RxNorm: 991572 1 Capsule(s) PO TID as needed 2018 Inactive hydrochlorothiazide 12.5 mg tablet RxNorm: 153545 1 Tablet(s) PO QAM 018 2018 Inactive ranitidine 150 mg tablet RxNorm: 665562 1 Tablet(s) PO BID 018 2018 Inactive Macrobid 100 mg capsule RxNorm: 853481 1 Capsule(s) PO Q12H 018 2017 Inactive Singulair 10 mg tablet RxNorm: 517868 1 Tablet(s) PO daily 018 2018 Inactive Ventolin HFA 90 mcg/actuation aerosol inhaler RxNorm: 8573510 2 Puff(s) INH QID 018 2018 Inactive Singulair 10 mg tablet RxNorm: 290647 1 Tablet(s) PO daily 018 2017 Inactive buspirone 7.5 mg tablet RxNorm: 334225 1 Tablet(s) PO BID 018 2017 Inactive Prozac 10 mg capsule RxNorm: 864233 1 Capsule(s) PO daily 018 2017 Inactive diclofenac sodium 75 mg tablet,delayed release RxNorm: 798816 1 Tablet(s) PO BID 018 2017 Inactive lisinopril 2.5 mg tablet RxNorm: 785473 1 Tablet(s) PO daily 018 2017 Inactive Neilmed Pediatric Sinus Rinse Refill packet RxNorm: 1 Unit Dose NASAL PRN 018 2021 Inactive metoprolol succinate ER 50 mg tablet,extended release 24 hr RxNorm: 347771 1 Tablet(s) PO daily 018 2017 Inactive levothyroxine 50 mcg tablet RxNorm: 151718 1 Tablet(s) PO daily 018 2017 Inactive TRUEplus Lancets 30 gauge RxNorm: 1 Lancets Miscellaneous QAM 018 2017 Inactive 100/box Ventolin HFA 90 mcg/actuation aerosol inhaler RxNorm: 568730 2 Puff(s) INH QID 018 2017 Inactive Aleve 220 mg capsule RxNorm: 9746790 1 Capsule(s) PO BID 018 2018 Inactive ranitidine 150 mg tablet RxNorm: 851395 1 Tablet(s) PO BID 018 2017 Inactive gabapentin 300 mg capsule RxNorm: 128353 1 Capsule(s) PO TID as needed 018 2017 Inactive atorvastatin 20 mg tablet RxNorm: 615194 1 Tablet(s) PO QHS 018 2017 Inactive True Metrix Glucose Test Strip RxNorm: 1 Test Strips Miscellaneous QAM 018 2017 Inactive 50/container Calcium 600-D3 Plus 600 mg calcium-800 unit-50 mg tablet RxNorm: 1 Tablet(s) PO daily take an additonal tablet for itching. 018 2017 Inactive hydrochlorothiazide 12.5 mg tablet RxNorm: 878186 1 Tablet(s) PO QAM 018 2017 Inactive Flintstones Complete (iron) 18 mg iron chewable tablet RxNorm: 1 Tablet(s) PO daily 018 2017 Inactive True Metrix Glucose Meter RxNorm: miscellaneous 019 2018 Inactive sertraline 50 mg tablet RxNorm: 721822 1 Tablet(s) PO daily 020 2019 Inactive loperamide 2 mg tablet RxNorm: 034652 oral 019 2018 Inactive d-mannose oral powder RxNorm: PO 018 2021 Inactive Symbicort 160 mcg-4.5 mcg/actuation HFA aerosol inhaler RxNorm: 3080270 2 Puff(s) INH BID 2018 Inactive Medication Administered No Medication Administered data Procedures Procedure Codes Date Peytona Fany Assessment CPT-4: DSWA 04/02 Patient Health Questionnaire CPT-4: DPHQ Annual Wellness Visit (Subsequent Visit) CPT-4: G0439 02/11/2022 Patient Health Questionnaire CPT-4: DPHQ 01/2022 Frailty Screening CPT-4: SFD 05/20/2021 Hypertension CPT-4: HTN 04/01/2021 Tobacco Assessment/Screening CPT-4: TCA 08/2021 Patient Health Questionnaire CPT-4: DPHQ 08/2021 Mini Mental State Exam CPT-4: DMMA Annual Wellness Visit (Subsequent Visit) CPT-4: G0439 01/13/2021 Advanced Care Planning CPT-4: VACP Fall Risk Assessment SNOMED CT: 28592134 4 CPT-4: DFRA01/13/2021emmes Fany AssessmentCPT-4: DSWA12/17/2020Urinalysis, dip stickCPT-4: 717286109/24/2020Patient Health QuestionnaireCPT-4: DPHQ 08/19/2020ElectrocardiogramCPT-4: 8223520Tobacco Assessment/Screening CPT-4: TCA01/01/2020Fall Risk AssessmentSNOMED CT: 676053788 CPT-4: DFRA01/01/2020Functional AssessmentCPT-4: DFA01/01/2020Semmes Fany AssessmentCPT-4: DSWA11/28/2019Patient Health QuestionnaireCPT-4: DPHQ11/28/2019 Peytona Fany AssessmentCPT-4: DSWA10/17/2019HypertensionCPT-4: HTN10/17/[address]: 577817999 CPT-4: DFRA09/19/2019Functional AssessmentCPT-4: DFA111/20/2018Urinalysis, dip stickCPT-4: 039445006/21/2019Tobacco Assessment/ScreeningCPT-4: TCA05/24/2019 Patient Health QuestionnaireCPT-4: DPHQ05/24/2019AHA/REBECCA Classification AssessmentCPT-4: DAHA04/25/2019Controlled Substance ReportCPT-4: CTRSU04/25/2019 Urinalysis, dip stickCPT-4: 720597603/28/2019Urinalysis, dip stickCPT-4: 94229 03/28/20199407H5N-TiybuuiypnjdcscAED-8: 05216UqskqnkL1M-RduookpnliydurdRGK-6: 96693 HrubqbvQ9F-CjcxvhrmwxzgqviTNJ-6: 17147WgcbdcwD7R-XvudmvssevrthqkTRE-1: 40890 CcvyorqC8I-LabjyourlpcjyrdNNS-6: 37612WmckizzT8D-DtilggyayyackjwJTH-1: 31546 FqoysjiM4Y-BrqwpkkukwmdvbdEKH-0: 29871IttlgheD1R-OlrzodahddpftwmHIL-3: 84815 DszscsgG0J-VfhrhpjtfkaffjfLQF-1: 04776TaugaloWwaaklmdtm ReferralSNOMED CT: 010704442 CPT-4: A10Tabpjvt Reason For Visit No Reason For Visit data Plan of Care Planned Activity Notes Codes Status Date Visit Plan: 2Patient Education: Patient Medication BpcwbekMtmowgjxr68/20/2022 Appointment: Chivo Bishop WPtel: [phone] [place] [address] [id number]: Chivo Bishop WPtel: [phone] [place] [address] [id number]: Mikey Nair WPtel: [address] [facility] [id number]: Chivo Bishop WPtel: [address] [place] [address] [id number]: Chivo Bishop WPtel: [address] [place] [address] [id number]: Chivo Bishop WPtel: [address] [place] [address] USETV111/11/2020ppointment: Chivo Bishop WPtel: [address] [place] [address] USETV110/13/2020ppointment: Chivo Bishop WPtel: [address] [place] [address] USETV1ppointment: Chivo Bishop WPtel: [address] [place] [address] [id number]/10/2021ppointment: Anna Culver WPtel: [address] [place] [address] USETV06/02/2021ppointment: Chivo Bishop WPtel: [address] [place] [address] USETV08/18/2021Appointment: Anna Culver WPtel: [phone] [place] [address] USETV04/28/2021ppointment: Chivo Bishop WPtel: [phone] [place] [address] [place] [address] USETV04/15/2021ppointment: Anna Culver WPtel: [phone] [place] [address] [id number]: Anna Culver WPtel: [phone] [place] [address] USET03/24/2021ppointment: Anna Culver WPtel: [phone] [place] [address] USETV03/13/2021ppointment: Anna Culver WPtel: [phone] [place] [address] [id number]: Chivo Bishop WPtel: [phone] [place] [address] [id number]: Anna Culver WPtel: [phone] [place] [address] USET01/13/2021ppointment: Anna Culver WPtel: [phone] [place] [address] [place] [address] [id number]: Chivo Bishop WPtel: [phone] [place] [address] [place] [address] USETV11/28/2020ppointment: Anna Culver WPtel: [phone] [place] [address] [place] [address] USETV11/24/2020ppointment: Anna Culver WPtel: [phone] [place] [address] [place] [address] [id number]: Anna Culver WPtel: [phone] [place] [address] ZME3125111/25/2019Appointment: Anna Culver WPtel: [phone] [place] [address] USETV110/26/2019Appointment: Anna Culver WPtel: [phone] [place] [address] USETV110/19/2019Appointment: Anna Culver WPtel: [phone] [place] [address] USETV1Appointment: Anna Culver WPtel: [address] [place] [address] USETV1Appointment: Gianna Birmingham MCtel: [facility] [address] [id number]: Anna Culver WPtel: [address] [place] [address] [id number]: Anna Culver WPtel: [phone] [place] [address] [id number]: Anna Culver WPtel: [phone] [place] [address] [id number]/Appointment: Anna Culver WPtel: [phone] [place] [address] [place] [address] [id number]: Anna Culver WPtel: [phone] [place] [address] [place] [address] [id number]: Anna Culver WPtel: [phone] [place], [place] [id number]: Anna Culver WPtel: [phone] [place] [address] [id number]: Anna Culver WPtel: [phone] [place] [address] [id number]: Anna Culver WPtel: [phone] [place] [address] [id number]: Anna Culver WPtel: [address] [place] [address] [id number]: Sudha Hernadez WPtel: [address] [facility] [id number]: Sudha Hernadez WPtel: [address] [facility] [address] [id number]: Charlene Oropeza WPtel: [address] [facility] [address] [id number]: Arthur DelgadooEAppointment: Charlene Oropeza WPtel: [address] [facility] [address] [id number]: Javy Rasta WPtel: [address] [facility] [address] [id number]: Javy Rasta WPtel: [address] [facility] [address] [id number]: Javy Rasta WPtel: [address] [facility] [address] [id number]: Rasta Palafox WPtel: [address] [facility] [address] [id number]: Pending Gynecology Referral InformationReferral ProcessedReferral: Pending Pulmonology Referral InformationReferralProcessed Referral: Pending Psychiatry Referral InformationReferralInitiatedReferral: Pending Respiratory Services Referral InformationReferralInitiatedReferral: Pending Ophthalmology Referral InformationReferralInitiatedReferral: [facility] WPtel: [address] [place] [address] [address] [facility] [id number] USWriter placed a call out to the patient to notify her that it has been recommended that she be seenby 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 Patient agreed to be seen, does not have a provider of choice and no transportationissues. Hybrid Car Mechanic faxed referral and clinical notes to [facility] in [place], [place] near the patient's home. Patient to [...] seen and prefers a provider in the [place] or [facility]. Hybrid Car Mechanic placed a call out to everyone listed in the area and the only location that was able to accept the patient's insurance was [address] [address] and spoke with Maylin. Maylin asked that the patient's referral, face sheet and visit notes be faxed to . [employer]ic faxed over requested documents. Patient appointment confirmation letter generated and mailed to her home address. Patient to call to schedule an appointment.ProcessedReferral: [facility] WPtel: [address] [place], [place] [id number] USPatient notified that it has been advised that she be seen by Neurology. Patient agreed to be seen and prefers to be seen by a provider in the [place], [place] area. Patient denies any concerns with transportation, and prefers to schedule her own appointment. Hybrid Car Mechanic placed a call out to [facility] and spoke with Neeraj P: who confirmed that their office is able to acceptnew patients and the patient's insurance. After confirming the providers fax number, telegraphic typewriter operator chief faxed over the patient's referral, and most [...]
--- OUTSIDE RECORDS SUMMARY | 2022-04-22 20:00 | XMS_ITS | CCD ---
Author Name Chivo Bishop NP Address [address] [place] [address] Phone Organization [facility] Phone Care Team Providers Care Custodian Name Role Phone Palomo KING, Anna Primary Care Provider Unav ailable Unavailable Chronic Care Management Unavaila ble Summary Purpose DataExchange Insurance Providers Payer name Policy type / Coverage type Covered green party ID Effective Begin Date Effective End Date SUKI MAYO [id number] Unknown Unknown Family history Mother Diagnosis Age [...] 05/31/2018 Education level Unknown Some High School 10th05/31/20181791EiwrlatdlpIyjcxrmLdggfdpyia85/29/2018Tobacco historySNOMED CT: 949458970Ylj never smoked or chewed ebbmupw2805/31/2018Alcohol historySNOMED CT: 489761634Rrtwa drinks uznwiuk4305/31/2018Has the patient ever used illegal drugs? UnknownHas never used illegal drugs05/31/2018DNR Order/ Advanced Directive UnknownFull Code05/31/2018 Allergies, Adverse Reactions, Alerts Substance Reaction Codes Entered Date Inactivated Date Status OxyContin itch, RxNorm: 596743 01/13/2021 No Inactive Da te Active *No known food allergies Mvseydh1809/06/2018No Inactive DateActiveMethylprednisolonehivesRxNorm: 6902 09/06/2018No Inactive DateActive Problems [...] control representative (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ICD-10: Z79.899 ICD-9: V58.6907/InactiveType 2 [...] Instructions Cleocin T 1 % lotion RxNorm: 947022 Take 2 Gram(s) Topical every day 022 2021 Inactive Cleocin T 1 % lotion RxNorm: 971139 Take 2 Gram(s) Topical every day 022 2021 Inactive Ozempic 1 mg/dose (4 mg/3 mL) subcutaneous pen injector RxNorm: 0008051 Take 1 Unit Dose Subcutaneous QWeek 022 2021 Inactive Ozempic 0.25 mg or 0.5 mg (2 mg/1.5 mL) subcutaneous pen injector RxNorm: 8644889 INJECT 0.5 MGS SUBCUTANEOUSLY EVERY WEEK 022 2021 Inactive omeprazole 20 mg capsule,delayed release RxNorm: 457710 Take 1 Capsule(s) Oral every evening 2021 Inactive levothyroxine 50 mcg tablet RxNorm: 372846 Take 1 Tablet(s) Oral every day 2021 Inactive atorvastatin 20 mg tablet RxNorm: 105029 Take 1 Tablet(s) Oral every night at bedtime 2021 Inactive This refill negates all other refills of this medication lisinopril 2.5 mg tablet RxNorm: 776757 Take 1 Tablet(s) Oral every day 022 2021 Inactive gabapentin 300 mg capsule RxNorm: 337721 Take 1 Capsule(s) Oral three times a day 022 2021 Inactive montelukast 10 mg tablet RxNorm: 343450 Take 1 Tablet(s) Oral every day 022 2021 Inactive cholecalciferol (vitamin D3) 50 mcg (2,000 unit) tablet RxNorm: 313037 Take 1 Tablet(s) Oral every day 2022 Inactive Myrbetriq 50 mg tablet,extended release RxNorm: 2316702 1 Tablet(s) Oral every day No Stop Date Active Ozempic 0.25 mg or 0.5 mg (2 mg/1.5 mL) subcutaneous pen injector RxNorm: 6391022 inject 0.5 milligrams subcutaneously every week 022 2021 Inactive Ozempic 0.25 mg or 0.5 mg (2 mg/1.5 mL) subcutaneous pen injector RxNorm: 9984841 Take 0.5 Capsule(s) Injection once a week 022 2021 Inactive omeprazole 20 mg capsule,delayed release RxNorm: 804481 Take 1 Capsule(s) Oral every evening 2020 Inactive Ozempic 0.25 mg or 0.5 mg (2 mg/1.5 mL) subcutaneous pen injector RxNorm: 7695044 Take 0.25 Milligram(s) Subcutaneous once a week 021 2021 Inactive Easy Touch Alcohol Prep Pads RxNorm: 357497 USE DIRECTED EACH MORNING 021 2021 Inactive Probiotic 10 billion cell capsule RxNorm: 0029450 Take 1 Capsule(s) Oral every day 2021 Inactive levothyroxine 50 mcg tablet RxNorm: 949452 Take 1 Tablet(s) Oral every day 2020 Inactive Acid Recruiting Administrator (famotidine) 20 mg tablet RxNorm: 284523 Take 1 Tablet(s) Oral every morning 2020 Inactive Heartburn Relief (famotidine) 10 mg tablet RxNorm: 522897 Take 1 Tablet(s) Oral QAM 2020 Inactive levothyroxine 50 mcg tablet RxNorm: 580224 Take 1 Tablet(s) Oral QD 2020 Inactive Singulair 10 mg tablet RxNorm: 450432 TAKE (1) TABLET BY MOUTH DAILY 2020 Inactive metformin 1,000 mg tablet RxNorm: 974942 1 Tablet(s) Oral two times a day 2021 Inactive lisinopril 2.5 mg tablet RxNorm: 250936 Take 1 Tablet(s) Oral every day 021 2020 Inactive hydrochlorothiazide 25 mg tablet RxNorm: 618833 Take 1 Tablet(s) Oral every day 021 2020 Inactive ondansetron 4 mg disintegrating tablet RxNorm: 155218 1 Tablet(s) Oral two times a day 021 2020 Inactive Sudafed 12 Hour 120 mg tablet,extended release RxNorm: 7555883 TAKE 1 TABLET BY MOUTH EVERY 12 HOURS NEEDED 2021 Inactive Heartburn Relief (famotidine) 10 mg tablet RxNorm: 818304 Take 1 Tablet(s) Oral every morning 021 2020 Inactive omeprazole 20 mg capsule,delayed release RxNorm: 908844 1 Capsule(s) Oral every evening 021 2020 Inactive sertraline 100 mg tablet RxNorm: 978492 2 Tablet(s) Oral every day 021 2020 Inactive levothyroxine 50 mcg tablet RxNorm: 004931 TAKE (1) TABLET BY MOUTH DAILY 021 2020 Inactive metformin 500 mg tablet RxNorm: 108963 1 Tablet(s) Oral two times a day take with 500mg to equal 1000mg 021 2020 Inactive gabapentin 300 mg capsule RxNorm: 457612 TAKE 1 CAPSULE BY MOUTH THREE TIMES A DAY 021 2020 Inactive lisinopril 2.5 mg tablet RxNorm: 128316 TAKE 1 TABLET BY MOUTH DAILY 021 2020 Inactive gabapentin 300 mg capsule RxNorm: 423804 TAKE 1 CAPSULE BY MOUTH THREE TIMES A DAY 021 2020 Inactive Singulair 10 mg tablet RxNorm: 239912 TAKE (1) TABLET BY MOUTH DAILY 021 2020 Inactive metformin 1,000 mg tablet RxNorm: 284241 1 Tablet(s) Oral two times a day 021 2020 Inactive atorvastatin 40 mg tablet RxNorm: 249876 1 Tablet(s) Oral every day 021 2020 Inactive omeprazole 20 mg capsule,delayed release RxNorm: 774846 1 Capsule(s) Oral every evening 021 2020 Inactive famotidine 10 mg tablet RxNorm: 632768 1 Tablet(s) Oral every morning 021 2020 Inactive Alcohol Prep Pads RxNorm: 859728 USE EACH MORNING 021 2020 Inactive omeprazole 20 mg capsule,delayed release RxNorm: 469641 1 Capsule(s) Oral two times a day 2021 Inactive omeprazole 20 mg capsule,delayed release RxNorm: 694772 TAKE 1 CAPSULE BY MOUTH EVERY DAY 2021 Inactive Macrobid 100 mg capsule RxNorm: 718782 1 Capsule(s) Oral every 12 hours with food 2020 Inactive omeprazole 20 mg capsule,delayed release RxNorm: 250564 1 Capsule(s) Oral two times a day 2021 Inactive metformin 1,000 mg tablet RxNorm: 870794 1 Tablet(s) Oral two times a day 2020 Inactive start on September 11, 2020 metformin 500 mg tablet RxNorm: 403957 1 Tablet(s) Oral two times a day take with 500mg to equal 1000mg 2019 Inactive gabapentin 300 mg capsule RxNorm: 914261 TAKE 1 CAPSULE BY MOUTH THREE TIMES DAILY 2020 Inactive cetirizine 10 mg tablet RxNorm: 5049145 TAKE (1) TABLET BY MOUTH DAILY 2020 Inactive metformin 500 mg tablet RxNorm: 987330 1 Tablet(s) Oral two times a day 2019 Inactive loperamide 2 mg tablet RxNorm: 843121 1 Tablet(s) Oral as needed take one tablet after each loose stool, maximum of 8 tablets in 24 hours 2021 Inactive Sudafed 12 Hour 120 mg tablet,extended release RxNorm: 3691837 TAKE 1 TABLET BY MOUTH EVERY 12 HOURS NEEDED 2019 Inactive hydrochlorothiazide 25 mg tablet RxNorm: 532127 TAKE (1) TABLET BY MOUTH EVERY DAY 2019 Inactive omeprazole 20 mg capsule,delayed release RxNorm: 855243 TAKE 1 CAPSULE BY MOUTH EVERY DAY 2020 Inactive metformin 500 mg tablet RxNorm: 565107 1 Tablet(s) Oral every day 2019 Inactive True Metrix Glucose Test Strip RxNorm: 1 Test Strips Miscellaneous two times a day as needed No Stop Date Active metformin 500 mg tablet RxNorm: 907266 1 Tablet(s) Oral every day 020 2019 Inactive diclofenac sodium 75 mg tablet,delayed release RxNorm: 526708 1 Tablet(s) PO BID 2021 Inactive This refill negates all other refills of this medication Sudafed 12 Hour 120 mg tablet,extended release RxNorm: 4189455 TAKE 1 TABLET BY MOUTH EVERY 12 HOURS NEEDED 020 2019 Inactive True Metrix Glucose Test Strip RxNorm: 1 Test Strips Miscellaneous every morning 020 2019 Inactive 100/container True Metrix Glucose Test Strip RxNorm: 1 Test Strips Miscellaneous QAM 020 2019 Inactive 100/container loperamide 2 mg tablet RxNorm: 663460 1 Tablet(s) Oral as needed take one tablet after each loose stool, maximum of 8 tablets in 24 hours 020 2019 Inactive cetirizine 10 mg tablet RxNorm: 2837563 1 Tablet(s) PO daily 2019 Inactive loperamide 2 mg tablet RxNorm: 824450 1 Tablet(s) Oral as needed take one tablet after each loose stool, maximum of 8 tablets in 24 hours 020 2019 Inactive quetiapine 100 mg tablet RxNorm: 572207 1 Tablet(s) Oral every night at bedtime 2019 Inactive levothyroxine 50 mcg tablet RxNorm: 512314 1 Tablet(s) PO daily 020 2020 Inactive gabapentin 300 mg capsule RxNorm: 076604 1 Capsule(s) PO TID 020 2019 Inactive levothyroxine 50 mcg tablet RxNorm: 740051 1 Tablet(s) PO daily 020 2019 Inactive lisinopril 2.5 mg tablet RxNorm: 753136 1 Tablet(s) PO daily 020 2020 Inactive gabapentin 300 mg capsule RxNorm: 913243 1 Capsule(s) PO TID 2019 Inactive cetirizine 10 mg tablet RxNorm: 7858649 1 Tablet(s) PO daily 2019 Inactive Singulair 10 mg tablet RxNorm: 346654 1 Tablet(s) PO daily 2020 Inactive gentamicin 0.3 % eye drops RxNorm: 543388 1 Drop(s) ophthalmic (eye) four times a day 2019 Inactive gentamicin 0.3 % eye drops RxNorm: 796001 1 Drop(s) ophthalmic (eye) four times a day 2019 Inactive gentamicin 0.3 % eye drops RxNorm: 604849 1 Drop(s) ophthalmic (eye) four times a day 2019 Inactive hydrochlorothiazide 25 mg tablet RxNorm: 566233 1 Tablet(s) Oral every day 2019 Inactive Sudafed 12 Hour 120 mg tablet,extended release RxNorm: 7248693 TAKE (1) TABLET BY MOUTH EVERY 12 HOURS NEEDED 2019 Inactive loperamide 2 mg tablet RxNorm: 388711 1 Tablet(s) Oral as needed take one tablet after each loose stool, maximum of 8 tablets in 24 hours 2019 Inactive loperamide 2 mg tablet RxNorm: 305791 1 Tablet(s) Oral as needed take one tablet after each loose stool, maximum of 8 tablets in 24 hours 020 2019 Inactive atorvastatin 40 mg tablet RxNorm: 471765 1 Tablet(s) Oral every day 2020 Inactive quetiapine 100 mg tablet RxNorm: 917295 1 Tablet(s) Oral every night at bedtime 2019 Inactive sertraline 100 mg tablet RxNorm: 094139 1 Tablet(s) Oral 2019 Inactive omeprazole 20 mg capsule,delayed release RxNorm: 126260 1 Capsule(s) Oral every day 020 2019 Inactive amoxicillin 250 mg capsule RxNorm: 125044 1 Capsule(s) Oral three times a day 2019 Inactive multivitamin with iron-mineral tablet RxNorm: 1 Tablet(s) Oral every day 2021 Inactive cetirizine 10 mg tablet RxNorm: 1964387 1 Tablet(s) PO daily 2019 Inactive This refill negates all other refills of this medication. Please do not auto refill Singulair 10 mg tablet RxNorm: 525283 1 Tablet(s) PO daily 2019 Inactive This refill negates all other refills of this medication gabapentin 300 mg capsule RxNorm: 714490 1 Capsule(s) PO TID 2019 Inactive lisinopril 2.5 mg tablet RxNorm: 301912 1 Tablet(s) PO daily 2019 Inactive levothyroxine 50 mcg tablet RxNorm: 658812 1 Tablet(s) PO daily 2019 Inactive This refill negates all other refills of this medication hydrochlorothiazide 25 mg tablet RxNorm: 719556 1 Tablet(s) Oral every day 2019 Inactive fenugreek seed extract 500 mg capsule RxNorm: 1 Capsule(s) Oral three times a day 2021 Inactive Alcohol Prep Pads RxNorm: 862811 1 Patch TOP QAM 020 2020 Inactive loperamide 2 mg tablet RxNorm: 237144 1 Tablet(s) Oral as needed take one [...] 2019 Inactive hydrochlorothiazide 25 mg tablet RxNorm: 313499 1 Tablet(s) Oral every day 019 2019 Inactive Sudafed 12 Hour 120 mg tablet,extended release RxNorm: 3919301 1 Tablet(s) Oral every 12 hours as needed 2018 Inactive omeprazole 20 mg capsule,delayed release RxNorm: 945975 1 Capsule(s) Oral every day 019 2019 Inactive Sudafed 12 Hour 120 mg tablet,extended release RxNorm: 8199004 1 Tablet(s) Oral every 12 hours as needed 2018 Inactive pantoprazole 40 mg tablet,delayed release RxNorm: 294807 1 Tablet(s) Oral every day 2018 Inactive discontinue any other H2Blkr. and PPI albuterol sulfate 2.5 mg/3 mL (0.083 %) solution for nebulization RxNorm: 060563 1 Vial Inhalation every four hours as needed as needed for dyspnea 2019 Inactive 60/box. This refill negates all other refills of this medication. Please do not fill early. Please do not auto refill. Symbicort 160 mcg-4.5 mcg/actuation HFA aerosol inhaler RxNorm: 3798855 2 Puff(s) INH BID 019 No Stop Date Active Alcohol Prep Pads RxNorm: 092064 1 Patch TOP QAM 019 2019 Inactive Ventolin HFA 90 mcg/actuation aerosol inhaler RxNorm: 720560 2 Puff(s) INH QID 019 2019 Inactive Please do not fill early. Please do not auto refill. This refill negates all other refills of this medication True Metrix Glucose Test Strip RxNorm: 1 Test Strips Miscellaneous QAM 019 2019 Inactive 100/container atorvastatin 40 mg tablet RxNorm: 920454 1 Tablet(s) Oral every day 019 2019 Inactive buspirone 7.5 mg tablet RxNorm: 774124 1 Tablet(s) PO BID 019 2020 Inactive This refill negates all other refills of this medication hydrochlorothiazide 12.5 mg tablet RxNorm: 978020 1 Tablet(s) PO QAM 019 2019 Inactive levmetamfetamine 50 mg nasal inhaler RxNorm: 1 Unit(s) NASAL Q3-4H Do not use more than every 3 hours or 8 times/24hours 019 2021 Inactive Please do not auto refill. This refill negates all other refills of this medication Ventolin HFA 90 mcg/actuation aerosol inhaler RxNorm: 958668 2 Puff(s) INH QID 019 2018 Inactive Please do not fill early. Please do not auto refill. This refill negates all other refills of this medication Singulair 10 mg tablet RxNorm: 861496 1 Tablet(s) PO daily 019 2019 Inactive This refill negates all other refills of this medication cetirizine 10 mg tablet RxNorm: 5832074 1 Tablet(s) PO daily 019 2019 Inactive This refill negates all other refills of this medication. Please do not auto refill levothyroxine 50 mcg tablet RxNorm: 427210 1 Tablet(s) PO daily 019 2019 Inactive This refill negates all other refills of this medication diclofenac sodium 75 mg tablet,delayed release RxNorm: 304260 1 Tablet(s) PO BID 019 2019 Inactive This refill negates all other refills of this medication ranitidine 150 mg tablet RxNorm: 171292 1 Tablet(s) PO BID 019 2018 Inactive This refill negates all other refills of this medication Calcium 600-D3 Plus (mag-zinc) 600 mg calcium-800 unit-50 mg tablet RxNorm: 1 Tablet(s) PO daily take an additonal tablet for itching. 2018 Inactive This refill negates all other refills of this medication albuterol sulfate 2.5 mg/3 mL (0.083 %) solution for nebulization RxNorm: 225924 1 Vial INH QID 2018 Inactive 60/box. This refill negates all other refills of this medication. Please do not fill early. Please do not auto refill. lisinopril 2.5 mg tablet RxNorm: 839909 1 Tablet(s) PO daily 019 2019 Inactive gabapentin 300 mg capsule RxNorm: 954890 1 Capsule(s) PO TID 019 2019 Inactive atorvastatin 20 mg tablet RxNorm: 422240 1 Tablet(s) PO QHS 2018 Inactive This refill negates all other refills of this medication TRUEplus Lancets 30 gauge RxNorm: 1 Lancets Miscellaneous QAM 019 2018 Inactive 100/box gabapentin 300 mg capsule RxNorm: 737589 1 Capsule(s) PO TID 019 2018 Inactive Flintstones Complete (iron) 18 mg iron chewable tablet RxNorm: 1 Tablet(s) PO daily 019 2021 Inactive This refill negates all other refills of this medication gabapentin 300 mg capsule RxNorm: 213519 1 Capsule(s) PO TID as needed 019 2018 Inactive True Metrix Glucose Test Strip RxNorm: 1 Test Strips Miscellaneous QAM 019 2018 Inactive 100/container Alcohol Prep Pads RxNorm: 614783 1 Patch TOP QAM 019 2018 Inactive TRUEplus Lancets 30 gauge RxNorm: 1 Lancets Miscellaneous QAM 019 2018 Inactive 100/box lisinopril 2.5 mg tablet RxNorm: 557281 1 Tablet(s) PO daily 019 2018 Inactive ranitidine 150 mg tablet RxNorm: 284244 1 Tablet(s) PO BID 019 2018 Inactive This refill negates all other refills of this medication albuterol sulfate 2.5 mg/3 mL (0.083 %) solution for nebulization RxNorm: 544423 1 Vial INH QID 019 2018 Inactive [...] this medication gabapentin 300 mg capsule RxNorm: 893480 1 Capsule(s) PO TID as needed 019 2018 Inactive atorvastatin 20 mg tablet RxNorm: 122168 1 Tablet(s) PO QHS 019 2018 Inactive This refill negates all other refills of this medication trazodone 50 mg tablet RxNorm: 438603 1 Tablet(s) PO QHS 019 2018 Inactive This refill negates all other refills of this medication Ventolin HFA 90 mcg/actuation aerosol inhaler RxNorm: 704840 2 Puff(s) INH QID 019 2018 Inactive Please do not fill early. Please do not auto refill. This refill negates all other refills of this medication Calcium 600-D3 Plus 600 mg calcium-800 unit-50 mg tablet RxNorm: 1 Tablet(s) PO daily take an additonal tablet for itching. 019 2018 Inactive This refill negates all other refills of this medication Singulair 10 mg tablet RxNorm: 016733 1 Tablet(s) PO daily 019 2018 Inactive This refill negates all other refills of this medication buspirone 7.5 mg tablet RxNorm: 038528 1 Tablet(s) PO BID 019 2018 Inactive This refill negates all other refills of this medication diclofenac sodium 75 mg tablet,delayed release RxNorm: 762690 1 Tablet(s) PO BID 019 2018 Inactive This refill negates all other refills of this medication hydrochlorothiazide 12.5 mg tablet RxNorm: 162664 1 Tablet(s) PO QAM 019 2018 Inactive metoprolol succinate ER 50 mg tablet,extended release 24 hr RxNorm: 349621 1 Tablet(s) PO daily 019 2018 Inactive This refill negates all other refills of this medication levothyroxine 50 mcg tablet RxNorm: 556078 1 Tablet(s) PO daily 019 2018 Inactive This refill negates all other refills of this medication cetirizine 10 mg tablet RxNorm: 8869896 1 Tablet(s) PO daily 019 2018 Inactive This refill negates all other refills of this medication. Please do not auto refill Flintstones Complete (iron) 18 mg iron chewable tablet RxNorm: 1 Tablet(s) PO daily 019 2018 Inactive This refill negates all other refills of this medication buspirone 7.5 mg tablet RxNorm: 933978 1 Tablet(s) PO BID 2018 Inactive cetirizine 10 mg tablet RxNorm: 1444647 1 Tablet(s) PO daily 2018 Inactive Guaiasorb DM 10 mg-100 mg/5 mL oral liquid RxNorm: 260081 10 Milliliter(s) PO As needed every 4 hr 2018 Inactive Vicks Vaporub 4.7 %-1.2 %-2.6 % topical ointment RxNorm: 5249768 1 Application TOP TID 2018 Inactive levmetamfetamine 50 mg nasal inhaler RxNorm: 1 Unit(s) NASAL Q3-4H 018 2017 Inactive sertraline 50 mg tablet RxNorm: 342020 1 Tablet(s) PO daily 018 2018 Inactive Please note dose trazodone 50 mg tablet RxNorm: 404813 1 Tablet(s) PO QHS 018 2018 Inactive sertraline 50 mg tablet RxNorm: 722712 1 Tablet(s) PO daily 018 2017 Inactive amoxicillin 500 mg tablet RxNorm: 150362 1 Tablet(s) PO Q12H 2017 Inactive albuterol sulfate 2.5 mg/3 mL (0.083 %) solution for nebulization RxNorm: 342977 1 Vial INH QID 2018 Inactive 60/box. Please do not fill early. Please do not auto refill. Prozac 10 mg capsule RxNorm: 829232 1 Capsule(s) PO daily 018 2017 Inactive buspirone 7.5 mg tablet RxNorm: 827312 1 Tablet(s) PO BID 018 2018 Inactive gabapentin 300 mg capsule RxNorm: 215017 1 Capsule(s) PO TID as needed 2018 Inactive hydrochlorothiazide 12.5 mg tablet RxNorm: 382160 1 Tablet(s) PO QAM 2018 Inactive ranitidine 150 mg tablet RxNorm: 528331 1 Tablet(s) PO BID 018 2018 Inactive Macrobid 100 mg capsule RxNorm: 334384 1 Capsule(s) PO Q12H 018 2017 Inactive Singulair 10 mg tablet RxNorm: 465195 1 Tablet(s) PO daily 018 2018 Inactive Ventolin HFA 90 mcg/actuation aerosol inhaler RxNorm: 8180462 2 Puff(s) INH QID 018 2018 Inactive Singulair 10 mg tablet RxNorm: 911568 1 Tablet(s) PO daily 018 2017 Inactive buspirone 7.5 mg tablet RxNorm: 233278 1 Tablet(s) PO BID 018 2017 Inactive Prozac 10 mg capsule RxNorm: 843062 1 Capsule(s) PO daily 018 2017 Inactive diclofenac sodium 75 mg tablet,delayed release RxNorm: 200624 1 Tablet(s) PO BID 018 2017 Inactive lisinopril 2.5 mg tablet RxNorm: 637816 1 Tablet(s) PO daily 018 2017 Inactive Neilmed Pediatric Sinus Rinse Refill packet RxNorm: 1 Unit Dose NASAL PRN 018 2021 Inactive metoprolol succinate ER 50 mg tablet,extended release 24 hr RxNorm: 663146 1 Tablet(s) PO daily 018 2017 Inactive levothyroxine 50 mcg tablet RxNorm: 242316 1 Tablet(s) PO daily 018 2017 Inactive TRUEplus Lancets 30 gauge RxNorm: 1 Lancets Miscellaneous QAM 018 2017 Inactive 100/box Ventolin HFA 90 mcg/actuation aerosol inhaler RxNorm: 088804 2 Puff(s) INH QID 018 2017 Inactive Aleve 220 mg capsule RxNorm: 5564354 1 Capsule(s) PO BID 018 2018 Inactive ranitidine 150 mg tablet RxNorm: 547187 1 Tablet(s) PO BID 018 2017 Inactive gabapentin 300 mg capsule RxNorm: 062784 1 Capsule(s) PO TID as needed 018 2017 Inactive atorvastatin 20 mg tablet RxNorm: 089923 1 Tablet(s) PO QHS 018 2017 Inactive True Metrix Glucose Test Strip RxNorm: 1 Test Strips Miscellaneous QAM 018 2017 Inactive 50/container Calcium 600-D3 Plus 600 mg calcium-800 unit-50 mg tablet RxNorm: 1 Tablet(s) PO daily take an additonal tablet for itching. 018 2017 Inactive hydrochlorothiazide 12.5 mg tablet RxNorm: 346327 1 Tablet(s) PO QAM 018 2017 Inactive Flintstones Complete (iron) 18 mg iron chewable tablet RxNorm: 1 Tablet(s) PO daily 018 2017 Inactive True Metrix Glucose Meter RxNorm: miscellaneous 019 2018 Inactive sertraline 50 mg tablet RxNorm: 056074 1 Tablet(s) PO daily 020 2019 Inactive loperamide 2 mg tablet RxNorm: 707449 oral 019 2018 Inactive d-mannose oral powder RxNorm: PO 018 2021 Inactive Symbicort 160 mcg-4.5 mcg/actuation HFA aerosol inhaler RxNorm: 9885863 2 Puff(s) INH BID 019 2018 Inactive Medication Administered No Medication Administered data Procedures Procedure Codes Date Barton Fany Assessment CPT-4: DSWA 04/02 Patient Health [...] CPT-4: VACP Fall Risk Assessment SNOMED CT: 34183523 4 CPT-4: DFRA01/13/2021emmes Fany AssessmentCPT-4: DSWA03/17/2021Urinalysis, dip stickCPT-4: 4395031Patient Health QuestionnaireCPT-4: DPHQ 08/19/2020ElectrocardiogramCPT-4: 8487293Tobacco Assessment/Screening CPT-4: TCA01/01/2020Fall Risk AssessmentSNOMED CT: 179871518 CPT-4: DFRA01/01/2020Functional AssessmentCPT-4: DFA01/01/2020Semmes Fany AssessmentCPT-4: DSWA11/28/2019Patient Health QuestionnaireCPT-4: DPHQ11/28/2019 Barton Fany AssessmentCPT-4: DSWA10/17/2019HypertensionCPT-4: HTN10/17/[address]: 737858657 CPT-4: DFRA09/19/2019Functional AssessmentCPT-4: DFA111/20/2018Urinalysis, dip stickCPT-4: 2005019Tobacco Assessment/ScreeningCPT-4: TCA05/24/2019 Patient Health QuestionnaireCPT-4: DPHQ05/24/2019AHA/REBECCA Classification AssessmentCPT-4: DAHA04/25/2019Controlled Substance ReportCPT-4: CTRSU04/25/2019 Urinalysis, dip stickCPT-4: 521932503/28/2019Urinalysis, dip stickCPT-4: 87063 03/28/20198007X0Y-VnwwconjzkvszivSWK-7: 58425AfahoiaW3G-EiihircmgdkmvrlBOP-2: 92170 QvcreckQ5O-GneqoovautoofhwZKV-6: 56671IinnteyN3U-CatwkichwqrjphiQQY-8: 76997 MbsqqohH5E-WvhynuciiwueroeQOS-1: 47380RvzgwoyM7F-LzhpgxdtavfsqsvBXZ-2: 73340 QvsgipzQ4Y-GennetdbmlbecxzRQD-5: 15168DhqlufcQ8Y-EobewyhrtjoqbnzAOA-0: 24665 UvmgwvyJ9L-XxnffsuggkqqkfoGEX-3: 35696UoldcdiQrnzahchmn ReferralSNOMED CT: 764520742 CPT-4: J36Pgyhxmn Reason For Visit No Reason For Visit data Plan of Care Planned Activity Notes Codes Status Date Patient Education: Patient Medication Summary Rddwnmndz26/22/2022ppointment: Chivo Bishop WPtel: [address] [place] [address] [id number]: Chivo Bishop WPtel: [address] [place] [address] [id number]: Mikey Nair WPtel: [address] [facility] [id number]: Chivo Bishop WPtel: [address] [place] [address] [id number]: Chivo Bishop WPtel: [address] [place] [address] [id number]: Chivo Bishop WPtel: [address] [place] [address] USETV111/11/2020ppointment: Chivo Bishop WPtel: [address] [place] [address] USETV110/13/2020ppointment: Chivo Bishop WPtel: [address] [place] [address] USETV1ppointment: Chivo Bishop WPtel: [address] [place] [address] LLCAEY7306/10/2021ppointment: Anna Culver WPtel: [address] [place] [address] USETV06/02/2021ppointment: Chivo Bishop WPtel: [phone] [address] USETV05/20/2021ppointment: Anna Culver WPtel: [id number] [place] [address] USETV04/28/2021ppointment: Chivo Bishop WPtel: [phone] [place] [address] USETV04/15/2021ppointment: Anna Culver WPtel: [id number] [place] [address] [id number]: Anna Culver WPtel: [id number] [place] [address] USET03/24/2021ppointment: Anna Culver WPtel: [phone] [place] [address] USETV03/13/2021ppointment: Anna Culver WPtel: [id number] [place] [address] [id number]: Chivo Bishop WPtel: [id number] [place] [address] [id number]: Anna Culver WPtel: [id number] [place] [address] USETV01/13/2021ppointment: Anna Culver WPtel: [id number] [place] [address] [id number]: Chivo Bishop WPtel: [phone] [place] [address] USETV11/28/2020ppointment: Anna Culver WPtel: [phone] [place] [address] USETV11/24/2020ppointment: Anna Culver WPtel: [phone] [place] [address] [place] [address] [id number]: Anna Culver WPtel: [phone] [place] [address] [address] [place] [address] [id number]/25/2019Appointment: Anna Culver WPtel: [id number] [place] [address] USETV110/26/2019Appointment: Anna Culver WPtel: [phone] [place] [address] USETV110/19/2019Appointment: Anna Culver WPtel: [address] [place] [address] USETV1Appointment: Anna Culver WPtel: [address] [place] [address] USETV1Appointment: Gianna Birmingham MCtel: [address] [facility] [address] [id number] NLAUKH8407/02/2020Appointment: Anna Culver WPtel: [address] [place] [address] [id number]: Anna Culver WPtel: [address] [place] [address] [place] [address] [id number]: Anna Culver WPtel: [phone] [place] [address] [place] [address] [id number]: Anna Culver WPtel: [phone] [place] [address] [id number]: Anna Culver WPtel: [phone] [place] [address] [place] [address] [id number]: Anna Culver WPtel: [address] [place] [address] [id number]: Anna Culver WPtel: [address] [facility] [address] [place] [address] [id number]: Palomo Anna WPtel: [address] [place] [address] [id number]: Anna Culver WPtel: [address] [place] [address] [id number]: Anna Culver WPtel: [address] [place] [address] [id number]/20/2018Appointment: Sudha Hernadez WPtel: [address] [facility] [address] [id number]: Sudha Hernadez WPtel: [address] [facility] [address] [id number]: Charlene Oropeza WPtel: [address] [facility] [address] [id number]: Enedelia [id number]: Charlene Oropeza WPtel: [address] [facility] [id number]: Rasta Palafox WPtel: [address] [facility] [address] [id number]: Rasta Palafox WPtel: [address] [facility] [address] [id number]: Rasta Palafox WPtel: [address] [facility] [address] [id number]: Rasta Palafox WPtel: [address] [facility] [address] [id number]: Pending Gynecology Referral InformationReferral ProcessedReferral: Pending Pulmonology Referral InformationReferralProcessed Referral: Pending Psychiatry Referral InformationReferralInitiatedReferral: Pending Respiratory Services Referral InformationReferralInitiatedReferral: Pending Ophthalmology Referral InformationReferralInitiatedReferral: [facility] WPtel: [address] [place] [address] [address] [facility] [place], [id number] USWriter placed a call out to the patient to notify her that it has been recommended that she be seenby 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 Patient agreed to be seen, does not have a provider of choice and no transportationissues. Bridge Painter Helper faxed referral and clinical notes to [facility] in [place], [place] near the patient's home. Patient to [...] seen and prefers a provider in the [place] or [place] area. Bridge Painter Helper placed a call out to everyone listed in the area and the only location that was able to accept the patient's insurance was [place] [address] [place] [address] and spoke with Maylin. Maylin asked that the patient's referral, face sheet and visit notes be faxed to . [employer]per faxed over requested documents. Patient appointment confirmation letter generated and mailed to her home address. Patient to call to schedule an appointment.ProcessedReferral: [facility] WPtel: [address] [facility] [address] [id number] USPatient notified that it has been advised that she be seen by Neurology. Patient agreed to be seen and prefers to be seen by a provider in the [place], [place] area. Patient denies any concerns with transportation, and prefers to schedule her own appointment. [employer]per placed a call out to [facility] and spoke with Neeraj P: who confirmed that their office is able to acceptnew patients and the patient's insurance. After confirming the providers fax number, radio news writer faxed over the patient's referral, and [...]
--- OUTSIDE RECORDS SUMMARY | 2022-04-29 20:00 | XMS_ITS | CCD ---
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 Name Role Phone Palomo KING, Anna Primary Care Provider Unav ailable Unavailable Chronic Care Management Unavaila ble Summary Purpose DataExchange Insurance Providers Payer name Policy type / Coverage type Covered democrat ID Effective Begin Date Effective End Date [employer]KI [employer] [facility] [id number] Unknown Unknown Family history Mother Diagnosis Age [...] 05/31/2018 Education level Unknown Some High School 10th05/31/20182194RfsvqvvpboNzytsvpAnzcvlbcjq08/29/2018Tobacco historySNOMED CT: [id number] never smoked or chewed jlufbxo7405/31/2018Alcohol historySNOMED CT: 271469156Skixq drinks [id number]/31/2018Has the patient ever used illegal drugs? UnknownHas never used illegal drugs05/31/2018DNR Order/ Advanced Directive UnknownFull Code05/31/2018 Allergies, Adverse Reactions, Alerts Substance Reaction Codes Entered Date Inactivated Date Status OxyContin itch, RxNorm: 207740 01/13/2021 No Inactive Da te Active *No known food allergies Zuqkoeu8209/06/2018No Inactive DateActiveMethylprednisolonehivesRxNorm: 6902 09/06/2018No Inactive DateActive Problems Condition Codes Effective Dates Condition St atus Abscess ICD-10: L02.91 ICD-9: 682.907ctiveAdjustment disorder with mixed anxiety and depressed moodICD-10: F43.23 ICD-9: 309.28111/06/2017ActiveAdult BMI 50.0-59.9 kg/sq mICD-10: Z68.43 ICD-9: V85.4308ActiveHyperlipidemia, mixedICD-10: E78.2 ICD-9: 272.203/2ActiveHypertensionICD-10: I10 ICD-9: 401.903/ctiveType 2 diabetes mellitus with peripheral neuropathy ICD-10: E11.42 ICD-9: 250.6002Active(Z00.00-V70.9) Encounter for general adult medical examination without abnormal findingsICD-10: Z00.00 ICD-9: V70.905/ctiveAllergic rhinitisICD-10: J30.9 ICD-9: 477.90/ctiveObstructive sleep apnea (adult) (pediatric)ICD-10: G47.33 ICD-9: 327.2309/ActiveAsthmaICD-10: J45.909 ICD-9: 493.9011ActiveGERD (gastroesophageal reflux disease)ICD-10: K21.9 ICD-9: 530.8112ActiveEdema, unspecifiedICD-10: R60.9 ICD-9: 782.310ActiveHypertensive heart diseaseICD-10: I11.9 ICD-9: 402.9003/2ActiveVitamin D deficiencyICD-10: E55.9 ICD-9: 268.903/ctiveHypertensive heart disease with heart failureICD-10: I11.0 ICD-9: [...] ICD-9: V79.004/1ResolvedAnorexiaICD-10: R63.0 ICD-9: 783.003/1ResolvedBlisterICD-10: T14.8XXA ICD-9: 919.2061ResolvedChronic kidney disease, stage 2 (mild)ICD-10: N18.2 ICD-9: 585.1ResolvedCOVID-19 virus RNA test result positive at limit of detectionICD-10: U07.1 ICD-9: 079.8909/1ResolvedDiarrheaICD-10: R19.7 ICD-9: 787.9111/1ResolvedDyspnea, unspecifiedICD-10: R06.00 ICD-9: 786.0905/06/2019ResolvedElevated liver enzymesICD-10: R74.8 ICD-9: 790.504/esolvedEncounter for screening for tobacco useICD-10: Z01.89 ICD-9: V72.8503/ResolvedEncounter for screening, unspecifiedICD-10: Z13.9 ICD-9: V82.912/01/2018ResolvedFamily history of seizuresICD-10: Z84.89 ICD-9: V19.807/1ResolvedHyperlipidemia, unspecifiedICD-10: E78.5 ICD-9: 272.408ResolvedLong term (current) use of non-steroidal anti- inflammatories (NSAID)ICD-10: Z79.1 ICD-9: V58.6409/08/2018ResolvedPatient Not SeenICD-10: UXZ.01 ICD-9: XZ0.107ResolvedPatient not seenICD-10: UXZ.01 ICD-9: UXZ.0112/1ResolvedUpper respiratory infectionICD-10: J06.9 ICD-9: 465.908/1ResolvedSyncope and collapseICD-10: R55 ICD-9: 780.203ActivePost-traumatic stress disorder, unspecifiedICD-10: F43.10 ICD-9: 309.8112ActiveHistory of bladder surgeryICD-10: Z98.890 ICD-9: V45.8904/ctiveUrinary retention with incomplete bladder emptying ICD-10: R33.9 ICD-9: 788.2101ActiveEncounter for immunizationICD-10: Z23 ICD-9: V04.8109/06/2020InactiveApnea, not elsewhere classifiedICD-10: R06.81 ICD-9: 786.0305InactiveChest pain, unspecifiedICD-10: R07.9 ICD-9: 786.5002/InactiveChronic kidney disease, unspecifiedICD-10: N18.9 ICD-9: 585.909/InactiveEncounter for immunizationICD-10: Z23 ICD-9: V03.907/InactiveEncounter for preprocedural cardiovascular examinationICD-10: Z01.810 ICD-9: V72.8106/InactiveHeadacheICD-10: R51 ICD-9: 784.001/10/2018InactiveOther skilled nursing (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ICD-10: Z79.899 ICD-9: V58.6907/InactiveType 2 [...] ICD-9: 788.3308ActiveAbnormal electrocardiogram [ECG] [EKG]ICD-10: R94.31 ICD-9: 794.31005/30/2018Active Medications Medication Codes Instructions Start Date Stop Date Status Fill Instructions famotidine 20 mg tablet RxNorm: 470967 Take 1 Tablet(s) Oral every morning 2021 Inactive levothyroxine 50 mcg tablet RxNorm: 622704 Take 1 Tablet(s) Oral every day 2021 Inactive atorvastatin 20 mg tablet RxNorm: 262111 Take 1 Tablet(s) Oral every night at bedtime 2021 Inactive Cleocin T 1 % lotion RxNorm: 062081 Take 2 Gram(s) Topical every day 022 2021 Inactive Cleocin T 1 % lotion RxNorm: 930375 Take 2 Gram(s) Topical every day 072021 Inactive Ozempic 1 mg/dose (4 mg/3 mL) subcutaneous pen injector RxNorm: 0732935 Take 1 Unit Dose Subcutaneous QWeek 022 2021 Inactive Ozempic 0.25 mg or 0.5 mg (2 mg/1.5 mL) subcutaneous pen injector RxNorm: 8849737 INJECT 0.5 MGS SUBCUTANEOUSLY EVERY WEEK 2021 Inactive omeprazole 20 mg capsule,delayed release RxNorm: 703836 Take 1 Capsule(s) Oral every evening 2021 Inactive levothyroxine 50 mcg tablet RxNorm: 123487 Take 1 Tablet(s) Oral every day 2021 Inactive atorvastatin 20 mg tablet RxNorm: 322145 Take 1 Tablet(s) Oral every night at bedtime 2021 Inactive This refill negates all other refills of this medication lisinopril 2.5 mg tablet RxNorm: 581870 Take 1 Tablet(s) Oral every day 2021 Inactive gabapentin 300 mg capsule RxNorm: 573882 Take 1 Capsule(s) Oral three times a day 2021 Inactive montelukast 10 mg tablet RxNorm: 111984 Take 1 Tablet(s) Oral every day 2021 Inactive cholecalciferol (vitamin D3) 50 mcg (2,000 unit) tablet RxNorm: 540501 Take 1 Tablet(s) Oral every day 2022 Inactive Myrbetriq 50 mg tablet,extended release RxNorm: 4450468 1 Tablet(s) Oral every day No Stop Date Active Ozempic 0.25 mg or 0.5 mg (2 mg/1.5 mL) subcutaneous pen injector RxNorm: 7871675 inject 0.5 milligrams subcutaneously every week 022 2021 Inactive Ozempic 0.25 mg or 0.5 mg (2 mg/1.5 mL) subcutaneous pen injector RxNorm: 9205754 Take 0.5 Capsule(s) Injection once a week 022 2021 Inactive omeprazole 20 mg capsule,delayed release RxNorm: 100551 Take 1 Capsule(s) Oral every evening 2020 Inactive Ozempic 0.25 mg or 0.5 mg (2 mg/1.5 mL) subcutaneous pen injector RxNorm: 9279162 Take 0.25 Milligram(s) Subcutaneous once a week 2021 Inactive Easy Touch Alcohol Prep Pads RxNorm: 200944 USE DIRECTED EACH MORNING 2021 Inactive Probiotic 10 billion cell capsule RxNorm: 1997694 Take 1 Capsule(s) Oral every day 2021 Inactive levothyroxine 50 mcg tablet RxNorm: 884727 Take 1 Tablet(s) Oral every day 2020 Inactive Acid Cement Storage Worker (famotidine) 20 mg tablet RxNorm: 708245 Take 1 Tablet(s) Oral every morning 2020 Inactive Heartburn Relief (famotidine) 10 mg tablet RxNorm: 268929 Take 1 Tablet(s) Oral QAM 2020 Inactive levothyroxine 50 mcg tablet RxNorm: 954283 Take 1 Tablet(s) Oral QD 2020 Inactive Singulair 10 mg tablet RxNorm: 953257 TAKE (1) TABLET BY MOUTH DAILY 2020 Inactive metformin 1,000 mg tablet RxNorm: 742118 1 Tablet(s) Oral two times a day 2021 Inactive lisinopril 2.5 mg tablet RxNorm: 053451 Take 1 Tablet(s) Oral every day 021 2020 Inactive hydrochlorothiazide 25 mg tablet RxNorm: 596431 Take 1 Tablet(s) Oral every day 021 2020 Inactive ondansetron 4 mg disintegrating tablet RxNorm: 390085 1 Tablet(s) Oral two times a day 021 2020 Inactive Sudafed 12 Hour 120 mg tablet,extended release RxNorm: 6164909 TAKE 1 TABLET BY MOUTH EVERY 12 HOURS NEEDED 2021 Inactive Heartburn Relief (famotidine) 10 mg tablet RxNorm: 892586 Take 1 Tablet(s) Oral every morning 021 2020 Inactive omeprazole 20 mg capsule,delayed release RxNorm: 214393 1 Capsule(s) Oral every evening 021 2020 Inactive sertraline 100 mg tablet RxNorm: 361022 2 Tablet(s) Oral every day 021 2020 Inactive levothyroxine 50 mcg tablet RxNorm: 287869 TAKE (1) TABLET BY MOUTH DAILY 021 2020 Inactive metformin 500 mg tablet RxNorm: 725679 1 Tablet(s) Oral two times a day take with 500mg to equal 1000mg 021 2020 Inactive gabapentin 300 mg capsule RxNorm: 400320 TAKE 1 CAPSULE BY MOUTH THREE TIMES A DAY 021 2020 Inactive lisinopril 2.5 mg tablet RxNorm: 354104 TAKE 1 TABLET BY MOUTH DAILY 021 2020 Inactive gabapentin 300 mg capsule RxNorm: 414238 TAKE 1 CAPSULE BY MOUTH THREE TIMES A DAY 021 2020 Inactive Singulair 10 mg tablet RxNorm: 982161 TAKE (1) TABLET BY MOUTH DAILY 021 2020 Inactive metformin 1,000 mg tablet RxNorm: 077922 1 Tablet(s) Oral two times a day 021 2020 Inactive atorvastatin 40 mg tablet RxNorm: 093916 1 Tablet(s) Oral every day 021 2020 Inactive omeprazole 20 mg capsule,delayed release RxNorm: 738202 1 Capsule(s) Oral every evening 021 2020 Inactive famotidine 10 mg tablet RxNorm: 461893 1 Tablet(s) Oral every morning 021 2020 Inactive Alcohol Prep Pads RxNorm: 783156 USE EACH MORNING 021 2020 Inactive omeprazole 20 mg capsule,delayed release RxNorm: 235504 1 Capsule(s) Oral two times a day 021 2021 Inactive omeprazole 20 mg capsule,delayed release RxNorm: 157985 TAKE 1 CAPSULE BY MOUTH EVERY DAY 2021 Inactive Macrobid 100 mg capsule RxNorm: 475694 1 Capsule(s) Oral every 12 hours with food 2020 Inactive omeprazole 20 mg capsule,delayed release RxNorm: 362925 1 Capsule(s) Oral two times a day 2021 Inactive metformin 1,000 mg tablet RxNorm: 009707 1 Tablet(s) Oral two times a day 2020 Inactive start on September 11, 2020 metformin 500 mg tablet RxNorm: 929592 1 Tablet(s) Oral two times a day take with 500mg to equal 1000mg 2019 Inactive gabapentin 300 mg capsule RxNorm: 883751 TAKE 1 CAPSULE BY MOUTH THREE TIMES DAILY 2020 Inactive cetirizine 10 mg tablet RxNorm: 4943121 TAKE (1) TABLET BY MOUTH DAILY 2020 Inactive metformin 500 mg tablet RxNorm: 441096 1 Tablet(s) Oral two times a day 2019 Inactive loperamide 2 mg tablet RxNorm: 639718 1 Tablet(s) Oral as needed take one tablet after each loose stool, maximum of 8 tablets in 24 hours 2021 Inactive Sudafed 12 Hour 120 mg tablet,extended release RxNorm: 9666123 TAKE 1 TABLET BY MOUTH EVERY 12 HOURS NEEDED 020 2019 Inactive hydrochlorothiazide 25 mg tablet RxNorm: 093654 TAKE (1) TABLET BY MOUTH EVERY DAY 020 2019 Inactive omeprazole 20 mg capsule,delayed release RxNorm: 782694 TAKE 1 CAPSULE BY MOUTH EVERY DAY 020 2020 Inactive metformin 500 mg tablet RxNorm: 506660 1 Tablet(s) Oral every day 2019 Inactive True Metrix Glucose Test Strip RxNorm: 1 Test Strips Miscellaneous two times a day as needed No Stop Date Active metformin 500 mg tablet RxNorm: 220165 1 Tablet(s) Oral every day 2019 Inactive diclofenac sodium 75 mg tablet,delayed release RxNorm: 351330 1 Tablet(s) PO BID 2021 Inactive This refill negates all other refills of this medication Sudafed 12 Hour 120 mg tablet,extended release RxNorm: 5236505 TAKE 1 TABLET BY MOUTH EVERY 12 HOURS NEEDED 020 2019 Inactive True Metrix Glucose Test Strip RxNorm: 1 Test Strips Miscellaneous every morning 020 2019 Inactive 100/container True Metrix Glucose Test Strip RxNorm: 1 Test Strips Miscellaneous QAM 020 2019 Inactive 100/container loperamide 2 mg tablet RxNorm: 950704 1 Tablet(s) Oral as needed take one tablet after each loose stool, maximum of 8 tablets in 24 hours 020 2019 Inactive cetirizine 10 mg tablet RxNorm: 6080850 1 Tablet(s) PO daily 020 2019 Inactive loperamide 2 mg tablet RxNorm: 760649 1 Tablet(s) Oral as needed take one tablet after each loose stool, maximum of 8 tablets in 24 hours 020 2019 Inactive quetiapine 100 mg tablet RxNorm: 568578 1 Tablet(s) Oral every night at bedtime 020 2019 Inactive levothyroxine 50 mcg tablet RxNorm: 909303 1 Tablet(s) PO daily 020 2020 Inactive gabapentin 300 mg capsule RxNorm: 561200 1 Capsule(s) PO TID 2019 Inactive levothyroxine 50 mcg tablet RxNorm: 866912 1 Tablet(s) PO daily 2019 Inactive lisinopril 2.5 mg tablet RxNorm: 563462 1 Tablet(s) PO daily 2020 Inactive gabapentin 300 mg capsule RxNorm: 472125 1 Capsule(s) PO TID 2019 Inactive cetirizine 10 mg tablet RxNorm: 0209831 1 Tablet(s) PO daily 2019 Inactive Singulair 10 mg tablet RxNorm: 156923 1 Tablet(s) PO daily 2020 Inactive gentamicin 0.3 % eye drops RxNorm: 657538 1 Drop(s) ophthalmic (eye) four times a day 2019 Inactive gentamicin 0.3 % eye drops RxNorm: 779564 1 Drop(s) ophthalmic (eye) four times a day 2019 Inactive gentamicin 0.3 % eye drops RxNorm: 933178 1 Drop(s) ophthalmic (eye) four times a day 2019 Inactive hydrochlorothiazide 25 mg tablet RxNorm: 894735 1 Tablet(s) Oral every day 2019 Inactive Sudafed 12 Hour 120 mg tablet,extended release RxNorm: 2560085 TAKE (1) TABLET BY MOUTH EVERY 12 HOURS NEEDED 2019 Inactive loperamide 2 mg tablet RxNorm: 667945 1 Tablet(s) Oral as needed take one tablet after each loose stool, maximum of 8 tablets in 24 hours 2019 Inactive loperamide 2 mg tablet RxNorm: 174329 1 Tablet(s) Oral as needed take one tablet after each loose stool, maximum of 8 tablets in 24 hours 020 2019 Inactive atorvastatin 40 mg tablet RxNorm: 138150 1 Tablet(s) Oral every day 2020 Inactive quetiapine 100 mg tablet RxNorm: 616929 1 Tablet(s) Oral every night at bedtime 020 2019 Inactive sertraline 100 mg tablet RxNorm: 757128 1 Tablet(s) Oral 020 2019 Inactive omeprazole 20 mg capsule,delayed release RxNorm: 746350 1 Capsule(s) Oral every day 020 2019 Inactive amoxicillin 250 mg capsule RxNorm: 804639 1 Capsule(s) Oral three times a day 2019 Inactive multivitamin with iron-mineral tablet RxNorm: 1 Tablet(s) Oral every day 020 2021 Inactive cetirizine 10 mg tablet RxNorm: 5083370 1 Tablet(s) PO daily 2019 Inactive This refill negates all other refills of this medication. Please do not auto refill Singulair 10 mg tablet RxNorm: 487594 1 Tablet(s) PO daily 2019 Inactive This refill negates all other refills of this medication gabapentin 300 mg capsule RxNorm: 399696 1 Capsule(s) PO TID 2019 Inactive lisinopril 2.5 mg tablet RxNorm: 419124 1 Tablet(s) PO daily 2019 Inactive levothyroxine 50 mcg tablet RxNorm: 408127 1 Tablet(s) PO daily 2019 Inactive This refill negates all other refills of this medication hydrochlorothiazide 25 mg tablet RxNorm: 445935 1 Tablet(s) Oral every day 2019 Inactive fenugreek seed extract 500 mg capsule RxNorm: 1 Capsule(s) Oral three times a day 2021 Inactive Alcohol Prep Pads RxNorm: 484830 1 Patch TOP QAM 020 2020 Inactive loperamide 2 mg tablet RxNorm: 652534 1 Tablet(s) Oral as needed take one [...] 2019 Inactive hydrochlorothiazide 25 mg tablet RxNorm: 619188 1 Tablet(s) Oral every day 2019 Inactive Sudafed 12 Hour 120 mg tablet,extended release RxNorm: 5135968 1 Tablet(s) Oral every 12 hours as needed 2018 Inactive omeprazole 20 mg capsule,delayed release RxNorm: 828786 1 Capsule(s) Oral every day 2019 Inactive Sudafed 12 Hour 120 mg tablet,extended release RxNorm: 0801150 1 Tablet(s) Oral every 12 hours as needed 2018 Inactive pantoprazole 40 mg tablet,delayed release RxNorm: 681777 1 Tablet(s) Oral every day 2018 Inactive discontinue any other H2Blkr. and PPI albuterol sulfate 2.5 mg/3 mL (0.083 %) solution for nebulization RxNorm: 154795 1 Vial Inhalation every four hours as needed as needed for dyspnea 2019 Inactive 60/box. This refill negates all other refills of this medication. Please do not fill early. Please do not auto refill. Symbicort 160 mcg-4.5 mcg/actuation HFA aerosol inhaler RxNorm: 9423191 2 Puff(s) INH BID No Stop Date Active Alcohol Prep Pads RxNorm: 121975 1 Patch TOP QAM 2019 Inactive Ventolin HFA 90 mcg/actuation aerosol inhaler RxNorm: 981711 2 Puff(s) INH QID 019 2019 Inactive Please do not fill early. Please do not auto refill. This refill negates all other refills of this medication True Metrix Glucose Test Strip RxNorm: 1 Test Strips Miscellaneous QAM 019 2019 Inactive 100/container atorvastatin 40 mg tablet RxNorm: 514552 1 Tablet(s) Oral every day 019 2019 Inactive buspirone 7.5 mg tablet RxNorm: 305957 1 Tablet(s) PO BID 019 2020 Inactive This refill negates all other refills of this medication hydrochlorothiazide 12.5 mg tablet RxNorm: 225130 1 Tablet(s) PO QAM 019 2019 Inactive levmetamfetamine 50 mg nasal inhaler RxNorm: 1 Unit(s) NASAL Q3-4H Do not use more than every 3 hours or 8 times/24hours 019 2021 Inactive Please do not auto refill. This refill negates all other refills of this medication Ventolin HFA 90 mcg/actuation aerosol inhaler RxNorm: 657727 2 Puff(s) INH QID 019 2018 Inactive Please do not fill early. Please do not auto refill. This refill negates all other refills of this medication Singulair 10 mg tablet RxNorm: 864238 1 Tablet(s) PO daily 019 2019 Inactive This refill negates all other refills of this medication cetirizine 10 mg tablet RxNorm: 6678551 1 Tablet(s) PO daily 019 2019 Inactive This refill negates all other refills of this medication. Please do not auto refill levothyroxine 50 mcg tablet RxNorm: 121033 1 Tablet(s) PO daily 019 2019 Inactive This refill negates all other refills of this medication diclofenac sodium 75 mg tablet,delayed release RxNorm: 255194 1 Tablet(s) PO BID 019 2019 Inactive This refill negates all other refills of this medication ranitidine 150 mg tablet RxNorm: 772520 1 Tablet(s) PO BID 019 2018 Inactive This refill negates all other refills of this medication Calcium 600-D3 Plus (mag-zinc) 600 mg calcium-800 unit-50 mg tablet RxNorm: 1 Tablet(s) PO daily take an additonal tablet for itching. 2018 Inactive This refill negates all other refills of this medication albuterol sulfate 2.5 mg/3 mL (0.083 %) solution for nebulization RxNorm: 517934 1 Vial INH QID 2018 Inactive 60/box. This refill negates all other refills of this medication. Please do not fill early. Please do not auto refill. lisinopril 2.5 mg tablet RxNorm: 557595 1 Tablet(s) PO daily 019 2019 Inactive gabapentin 300 mg capsule RxNorm: 104323 1 Capsule(s) PO TID 019 2019 Inactive atorvastatin 20 mg tablet RxNorm: 252708 1 Tablet(s) PO QHS 2018 Inactive This refill negates all other refills of this medication TRUEplus Lancets 30 gauge RxNorm: 1 Lancets Miscellaneous QAM 2018 Inactive 100/box gabapentin 300 mg capsule RxNorm: 459548 1 Capsule(s) PO TID 019 2018 Inactive Flintstones Complete (iron) 18 mg iron chewable tablet RxNorm: 1 Tablet(s) PO daily 019 2021 Inactive This refill negates all other refills of this medication gabapentin 300 mg capsule RxNorm: 731140 1 Capsule(s) PO TID as needed 019 2018 Inactive True Metrix Glucose Test Strip RxNorm: 1 Test Strips Miscellaneous QAM 019 2018 Inactive 100/container Alcohol Prep Pads RxNorm: 358961 1 Patch TOP QAM 019 2018 Inactive TRUEplus Lancets 30 gauge RxNorm: 1 Lancets Miscellaneous QAM 019 2018 Inactive 100/box lisinopril 2.5 mg tablet RxNorm: 089708 1 Tablet(s) PO daily 019 2018 Inactive ranitidine 150 mg tablet RxNorm: 945369 1 Tablet(s) PO BID 019 2018 Inactive This refill negates all other refills of this medication albuterol sulfate 2.5 mg/3 mL (0.083 %) solution for nebulization RxNorm: 722355 1 Vial INH QID 019 2018 Inactive [...] this medication gabapentin 300 mg capsule RxNorm: 863523 1 Capsule(s) PO TID as needed 019 2018 Inactive atorvastatin 20 mg tablet RxNorm: 654466 1 Tablet(s) PO QHS 019 2018 Inactive This refill negates all other refills of this medication trazodone 50 mg tablet RxNorm: 645346 1 Tablet(s) PO QHS 019 2018 Inactive This refill negates all other refills of this medication Ventolin HFA 90 mcg/actuation aerosol inhaler RxNorm: 717242 2 Puff(s) INH QID 019 2018 Inactive Please do not fill early. Please do not auto refill. This refill negates all other refills of this medication Calcium 600-D3 Plus 600 mg calcium-800 unit-50 mg tablet RxNorm: 1 Tablet(s) PO daily take an additonal tablet for itching. 019 2018 Inactive This refill negates all other refills of this medication Singulair 10 mg tablet RxNorm: 022557 1 Tablet(s) PO daily 019 2018 Inactive This refill negates all other refills of this medication buspirone 7.5 mg tablet RxNorm: 169693 1 Tablet(s) PO BID 019 2018 Inactive This refill negates all other refills of this medication diclofenac sodium 75 mg tablet,delayed release RxNorm: 435019 1 Tablet(s) PO BID 019 2018 Inactive This refill negates all other refills of this medication hydrochlorothiazide 12.5 mg tablet RxNorm: 228608 1 Tablet(s) PO QAM 019 2018 Inactive metoprolol succinate ER 50 mg tablet,extended release 24 hr RxNorm: 946809 1 Tablet(s) PO daily 019 2018 Inactive This refill negates all other refills of this medication levothyroxine 50 mcg tablet RxNorm: 096953 1 Tablet(s) PO daily 019 2018 Inactive This refill negates all other refills of this medication cetirizine 10 mg tablet RxNorm: 6293743 1 Tablet(s) PO daily 019 2018 Inactive This refill negates all other refills of this medication. Please do not auto refill Flintstones Complete (iron) 18 mg iron chewable tablet RxNorm: 1 Tablet(s) PO daily 019 2018 Inactive This refill negates all other refills of this medication buspirone 7.5 mg tablet RxNorm: 729053 1 Tablet(s) PO BID 019 2018 Inactive cetirizine 10 mg tablet RxNorm: 0822780 1 Tablet(s) PO daily 2018 Inactive Guaiasorb DM 10 mg-100 mg/5 mL oral liquid RxNorm: 111033 10 Milliliter(s) PO As needed every 4 hr 2018 Inactive Vicks Vaporub 4.7 %-1.2 %-2.6 % topical ointment RxNorm: 9306735 1 Application TOP TID 2018 Inactive levmetamfetamine 50 mg nasal inhaler RxNorm: 1 Unit(s) NASAL Q3-4H 2017 Inactive sertraline 50 mg tablet RxNorm: 641067 1 Tablet(s) PO daily 2018 Inactive Please note dose trazodone 50 mg tablet RxNorm: 928516 1 Tablet(s) PO QHS 2018 Inactive sertraline 50 mg tablet RxNorm: 543950 1 Tablet(s) PO daily 018 2017 Inactive amoxicillin 500 mg tablet RxNorm: 209287 1 Tablet(s) PO Q12H 2017 Inactive albuterol sulfate 2.5 mg/3 mL (0.083 %) solution for nebulization RxNorm: 598710 1 Vial INH QID 2018 Inactive 60/box. Please do not fill early. Please do not auto refill. Prozac 10 mg capsule RxNorm: 403543 1 Capsule(s) PO daily 018 2017 Inactive buspirone 7.5 mg tablet RxNorm: 298084 1 Tablet(s) PO BID 2018 Inactive gabapentin 300 mg capsule RxNorm: 875250 1 Capsule(s) PO TID as needed 2018 Inactive hydrochlorothiazide 12.5 mg tablet RxNorm: 625585 1 Tablet(s) PO QAM 2018 Inactive ranitidine 150 mg tablet RxNorm: 498620 1 Tablet(s) PO BID 2018 Inactive Macrobid 100 mg capsule RxNorm: 885516 1 Capsule(s) PO Q12H 2017 Inactive Singulair 10 mg tablet RxNorm: 811409 1 Tablet(s) PO daily 018 2018 Inactive Ventolin HFA 90 mcg/actuation aerosol inhaler RxNorm: 9816496 2 Puff(s) INH QID 018 2018 Inactive Singulair 10 mg tablet RxNorm: 848682 1 Tablet(s) PO daily 018 2017 Inactive buspirone 7.5 mg tablet RxNorm: 445592 1 Tablet(s) PO BID 018 2017 Inactive Prozac 10 mg capsule RxNorm: 719565 1 Capsule(s) PO daily 018 2017 Inactive diclofenac sodium 75 mg tablet,delayed release RxNorm: 655043 1 Tablet(s) PO BID 018 2017 Inactive lisinopril 2.5 mg tablet RxNorm: 856968 1 Tablet(s) PO daily 018 2017 Inactive Neilmed Pediatric Sinus Rinse Refill packet RxNorm: 1 Unit Dose NASAL PRN 018 2021 Inactive metoprolol succinate ER 50 mg tablet,extended release 24 hr RxNorm: 350344 1 Tablet(s) PO daily 018 2017 Inactive levothyroxine 50 mcg tablet RxNorm: 242937 1 Tablet(s) PO daily 018 2017 Inactive TRUEplus Lancets 30 gauge RxNorm: 1 Lancets Miscellaneous QAM 018 2017 Inactive 100/box Ventolin HFA 90 mcg/actuation aerosol inhaler RxNorm: 082083 2 Puff(s) INH QID 018 2017 Inactive Aleve 220 mg capsule RxNorm: 1835835 1 Capsule(s) PO BID 018 2018 Inactive ranitidine 150 mg tablet RxNorm: 692295 1 Tablet(s) PO BID 018 2017 Inactive gabapentin 300 mg capsule RxNorm: 287486 1 Capsule(s) PO TID as needed 018 2017 Inactive atorvastatin 20 mg tablet RxNorm: 714815 1 Tablet(s) PO QHS 018 2017 Inactive True Metrix Glucose Test Strip RxNorm: 1 Test Strips Miscellaneous QAM 018 2017 Inactive 50/container Calcium 600-D3 Plus 600 mg calcium-800 unit-50 mg tablet RxNorm: 1 Tablet(s) PO daily take an additonal tablet for itching. 018 2017 Inactive hydrochlorothiazide 12.5 mg tablet RxNorm: 578571 1 Tablet(s) PO QAM 018 2017 Inactive Flintstones Complete (iron) 18 mg iron chewable tablet RxNorm: 1 Tablet(s) PO daily 018 2017 Inactive True Metrix Glucose Meter RxNorm: miscellaneous 019 2018 Inactive sertraline 50 mg tablet RxNorm: 495288 1 Tablet(s) PO daily 020 2019 Inactive loperamide 2 mg tablet RxNorm: 858544 oral 019 2018 Inactive d-mannose oral powder RxNorm: PO 018 2021 Inactive Symbicort 160 mcg-4.5 mcg/actuation HFA aerosol inhaler RxNorm: 2557778 2 Puff(s) INH BID 019 2018 Inactive Medication Administered No Medication Administered data Procedures Procedure Codes Date [place] Assessment CPT-4: DSWA 04/02 Patient Health [...] CPT-4: VACP Fall Risk Assessment SNOMED CT: 35084267 4 CPT-4: DFRA1[place] Fany AssessmentCPT-4: DSWA12/17/2020Urinalysis, dip stickCPT-4: 158971909/24/2020Patient Health QuestionnaireCPT-4: DPHQ 08/19/2020ElectrocardiogramCPT-4: 7604942Tobacco Assessment/Screening CPT-4: TCA01/01/2020Fall Risk AssessmentSNOMED CT: 317587981 CPT-4: DFRA01/01/2020Functional AssessmentCPT-4: DFA01/01/2020[place] Fany AssessmentCPT-4: DSWA11/28/2019Patient Health QuestionnaireCPT-4: DPHQ11/28/2019 [place] Fany AssessmentCPT-4: DS10/17/2019HypertensionCPT-4: HTN10/17/[address]: 211490020 CPT-4: DFRA09/19/2019Functional AssessmentCPT-4: DFA111/20/2018Urinalysis, dip stickCPT-4: 594440806/21/2019Tobacco Assessment/ScreeningCPT-4: TCA05/24/2019 Patient Health QuestionnaireCPT-4: DPHQ05/24/2019AHA/REBECCA Classification AssessmentCPT-4: DAHA04/25/2019Controlled Substance ReportCPT-4: CTRSU04/25/2019 Urinalysis, dip stickCPT-4: 8579728Urinalysis, dip stickCPT-4: 34134 03/28/20196960E6B-ZaqmahhrjtiqmfxDPW-9: 03296XvdagehL5T-UdzpxixsqjwdekwBSS-9: 17057 PbndlpeI6S-OjfqkpwmrdzeufgHHS-9: 03985VhxhljsL9T-MxtkocceriinsinAUP-0: 45154 VeehkuaW7V-YqlapfcnhrujlhiUWW-3: 17227BqkjzrbC6W-MbzjdtdwhsbjovhNVR-8: 64350 WwrudijV1Y-QnkxbetvxbsztdcRFK-0: 98089GxnotcoI4A-UkkcvfncidvrvhsOXN-5: 20106 IeustvwX5E-NqxpcufuhrowpdbOJA-7: 15811QomkagaHnghtpexze ReferralSNOMED CT: 214895062 CPT-4: P83Gffdjel Reason For Visit No Reason For Visit data Plan of Care Planned Activity Notes Codes Status Date Referral: Pending Gynecology Referral Informatio n Referral ProcessedReferral: Pending Pulmonology Referral InformationReferralProcessed Referral: Pending Psychiatry Referral InformationReferralInitiatedReferral: Pending Respiratory Services Referral InformationReferralInitiatedReferral: Pending Ophthalmology Referral InformationReferralInitiatedReferral: [facility] WPtel: [address] [place] [address] [address] [address] USWriter placed a call out to the patient to notify her that it has been recommended that she be seenby 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 Patient agreed to be seen, does not have a provider of choice and no transportationissues. [employer] faxed referral and clinical notes to [facility] [place] in [place], [place] near the patient's home. Patient to [...] seen and prefers a provider in the [place] or [facility]. [employer] placed a call out to everyone listed in the area and the only location that was able to accept the patient's insurance was [place] [address] [place] [address] and spoke with Maylin. Maylin asked that the patient's referral, face sheet and visit notes be faxed to . [employer] faxed over requested documents. Patient appointment confirmation letter generated and mailed to her home address. Patient to call to schedule an appointment.ProcessedReferral: [facility] WPtel: [address] [facility] [address] [address] [id number] [place]Patient notified that it has been advised that she be seen by Neurology. Patient agreed to be seen and prefers to be seen by a provider in the [place], [place] area. Patient denies any concerns with transportation, and prefers to schedule her own appointment. [employer] placed a call out to [facility] and spoke with Neeraj P: who confirmed that their office is able to acceptnew patients and the patient's insurance. After confirming the providers fax number, service writer faxed over the patient's referral, [...]
--- OUTSIDE RECORDS SUMMARY | 2022-05-14 20:00 | XMS_ITS | CCD ---
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 Solar[facility] Administrator Name Role Phone Palomo KING, Anna Primary Care Provider Unav ailable Unavailable Chronic Care Management Unavaila ble Summary Purpose DataExchange Insurance Providers Payer name Policy type / Coverage type Covered constitution party ID Effective Begin Date Effective End Date [facility] [id number] Unknown Unknown Family history Mother Diagnosis Age [...] 05/31/2018 Education level Unknown Some High School 10th05/31/20184210OrvubadswiGjyeyvoSufjbobwzf25/29/2018Tobacco historySNOMED CT: 284958639Zfh never smoked or chewed dxygkti6705/31/2018Alcohol historySNOMED CT: 718163415Ostro drinks aknbrko2405/31/2018Has the patient ever used illegal drugs? UnknownHas never used illegal drugs05/31/2018DNR Order/ Advanced Directive UnknownFull Code05/31/2018 Allergies, Adverse Reactions, Alerts Substance Reaction Codes Entered Date Inactivated Date Status OxyContin itch, RxNorm: 740353 01/13/2021 No Inactive Da te Active *No known food allergies Hsvjulc4009/06/2018No Inactive DateActiveMethylprednisolonehivesRxNorm: 6902 09/06/2018No Inactive DateActive Problems [...] examinationICD-10: Z01.810 ICD-9: V72.8106/InactiveHeadacheICD-10: R51 ICD-9: 784.001/10/2018InactiveOther fpc (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ICD-10: Z79.899 ICD-9: V58.6907/InactiveType 2 [...] Fill Instructions hydrochlorothiazide 25 mg tablet RxNorm: 041709 Take 1 Tablet(s) Oral every day 022 2021 Inactive Ozempic 1 mg/dose (4 mg/3 mL) subcutaneous pen injector RxNorm: 5202452 Take 1 Unit Dose Subcutaneous QWeek 022 2021 Inactive famotidine 20 mg tablet RxNorm: 711830 Take 1 Tablet(s) Oral every morning 022 2021 Inactive levothyroxine 50 mcg tablet RxNorm: 789213 Take 1 Tablet(s) Oral every day 022 2021 Inactive atorvastatin 20 mg tablet RxNorm: 001264 Take 1 Tablet(s) Oral every night at bedtime 022 2021 Inactive Cleocin T 1 % lotion RxNorm: 454083 Take 2 Gram(s) Topical every day 022 2021 Inactive Cleocin T 1 % lotion RxNorm: 125099 Take 2 Gram(s) Topical every day 022 2021 Inactive Ozempic 1 mg/dose (4 mg/3 mL) subcutaneous pen injector RxNorm: 0918451 Take 1 Unit Dose Subcutaneous QWeek 022 2021 Inactive Ozempic 0.25 mg or 0.5 mg (2 mg/1.5 mL) subcutaneous pen injector RxNorm: 4464831 INJECT 0.5 MGS SUBCUTANEOUSLY EVERY WEEK 022 2021 Inactive omeprazole 20 mg capsule,delayed release RxNorm: 493302 Take 1 Capsule(s) Oral every evening 2021 Inactive levothyroxine 50 mcg tablet RxNorm: 499674 Take 1 Tablet(s) Oral every day 022 2021 Inactive atorvastatin 20 mg tablet RxNorm: 101945 Take 1 Tablet(s) Oral every night at bedtime 2021 Inactive This refill negates all other refills of this medication lisinopril 2.5 mg tablet RxNorm: 630625 Take 1 Tablet(s) Oral every day 2021 Inactive gabapentin 300 mg capsule RxNorm: 202078 Take 1 Capsule(s) Oral three times a day 022 2021 Inactive montelukast 10 mg tablet RxNorm: 543312 Take 1 Tablet(s) Oral every day 022 2021 Inactive cholecalciferol (vitamin D3) 50 mcg (2,000 unit) tablet RxNorm: 698671 Take 1 Tablet(s) Oral every day 022 2022 Inactive Myrbetriq 50 mg tablet,extended release RxNorm: 2215353 1 Tablet(s) Oral every day 022 No Stop Date Active Ozempic 0.25 mg or 0.5 mg (2 mg/1.5 mL) subcutaneous pen injector RxNorm: 9888341 inject 0.5 milligrams subcutaneously every week 2021 Inactive Ozempic 0.25 mg or 0.5 mg (2 mg/1.5 mL) subcutaneous pen injector RxNorm: 6837415 Take 0.5 Capsule(s) Injection once a week 2021 Inactive omeprazole 20 mg capsule,delayed release RxNorm: 003190 Take 1 Capsule(s) Oral every evening 2020 Inactive Ozempic 0.25 mg or 0.5 mg (2 mg/1.5 mL) subcutaneous pen injector RxNorm: 5749240 Take 0.25 Milligram(s) Subcutaneous once a week 2021 Inactive Easy Touch Alcohol Prep Pads RxNorm: 438216 USE DIRECTED EACH MORNING 2021 Inactive Probiotic 10 billion cell capsule RxNorm: 4155876 Take 1 Capsule(s) Oral every day 2021 Inactive levothyroxine 50 mcg tablet RxNorm: 538686 Take 1 Tablet(s) Oral every day 2020 Inactive Acid Change Management Lead (famotidine) 20 mg tablet RxNorm: 473911 Take 1 Tablet(s) Oral every morning 2020 Inactive Heartburn Relief (famotidine) 10 mg tablet RxNorm: 199186 Take 1 Tablet(s) Oral QAM 2020 Inactive levothyroxine 50 mcg tablet RxNorm: 632314 Take 1 Tablet(s) Oral QD 2020 Inactive Singulair 10 mg tablet RxNorm: 654876 TAKE (1) TABLET BY MOUTH DAILY 2020 Inactive metformin 1,000 mg tablet RxNorm: 948990 1 Tablet(s) Oral two times a day 2021 Inactive lisinopril 2.5 mg tablet RxNorm: 677499 Take 1 Tablet(s) Oral every day 021 2020 Inactive hydrochlorothiazide 25 mg tablet RxNorm: 462362 Take 1 Tablet(s) Oral every day 021 2020 Inactive ondansetron 4 mg disintegrating tablet RxNorm: 142422 1 Tablet(s) Oral two times a day 021 2020 Inactive Sudafed 12 Hour 120 mg tablet,extended release RxNorm: 4568488 TAKE 1 TABLET BY MOUTH EVERY 12 HOURS NEEDED 021 2021 Inactive Heartburn Relief (famotidine) 10 mg tablet RxNorm: 226380 Take 1 Tablet(s) Oral every morning 021 2020 Inactive omeprazole 20 mg capsule,delayed release RxNorm: 969524 1 Capsule(s) Oral every evening 021 2020 Inactive sertraline 100 mg tablet RxNorm: 601059 2 Tablet(s) Oral every day 021 2020 Inactive levothyroxine 50 mcg tablet RxNorm: 271812 TAKE (1) TABLET BY MOUTH DAILY 021 2020 Inactive metformin 500 mg tablet RxNorm: 346403 1 Tablet(s) Oral two times a day take with 500mg to equal 1000mg 021 2020 Inactive gabapentin 300 mg capsule RxNorm: 284281 TAKE 1 CAPSULE BY MOUTH THREE TIMES A DAY 021 2020 Inactive lisinopril 2.5 mg tablet RxNorm: 517646 TAKE 1 TABLET BY MOUTH DAILY 021 2020 Inactive gabapentin 300 mg capsule RxNorm: 912745 TAKE 1 CAPSULE BY MOUTH THREE TIMES A DAY 021 2020 Inactive Singulair 10 mg tablet RxNorm: 048115 TAKE (1) TABLET BY MOUTH DAILY 021 2020 Inactive metformin 1,000 mg tablet RxNorm: 474238 1 Tablet(s) Oral two times a day 021 2020 Inactive atorvastatin 40 mg tablet RxNorm: 748899 1 Tablet(s) Oral every day 021 2020 Inactive omeprazole 20 mg capsule,delayed release RxNorm: 470116 1 Capsule(s) Oral every evening 2020 Inactive famotidine 10 mg tablet RxNorm: 739301 1 Tablet(s) Oral every morning 2020 Inactive Alcohol Prep Pads RxNorm: 304763 USE EACH MORNING 2020 Inactive omeprazole 20 mg capsule,delayed release RxNorm: 473274 1 Capsule(s) Oral two times a day 2021 Inactive omeprazole 20 mg capsule,delayed release RxNorm: 107055 TAKE 1 CAPSULE BY MOUTH EVERY DAY 2021 Inactive Macrobid 100 mg capsule RxNorm: 526883 1 Capsule(s) Oral every 12 hours with food 2020 Inactive omeprazole 20 mg capsule,delayed release RxNorm: 598806 1 Capsule(s) Oral two times a day 2021 Inactive metformin 1,000 mg tablet RxNorm: 525398 1 Tablet(s) Oral two times a day 2020 Inactive start on September 11, 2020 metformin 500 mg tablet RxNorm: 804890 1 Tablet(s) Oral two times a day take with 500mg to equal 1000mg 2019 Inactive gabapentin 300 mg capsule RxNorm: 517414 TAKE 1 CAPSULE BY MOUTH THREE TIMES DAILY 2020 Inactive cetirizine 10 mg tablet RxNorm: 9093086 TAKE (1) TABLET BY MOUTH DAILY 2020 Inactive metformin 500 mg tablet RxNorm: 271586 1 Tablet(s) Oral two times a day 2019 Inactive loperamide 2 mg tablet RxNorm: 968966 1 Tablet(s) Oral as needed take one tablet after each loose stool, maximum of 8 tablets in 24 hours 2021 Inactive Sudafed 12 Hour 120 mg tablet,extended release RxNorm: 6457727 TAKE 1 TABLET BY MOUTH EVERY 12 HOURS NEEDED 020 2019 Inactive hydrochlorothiazide 25 mg tablet RxNorm: 771843 TAKE (1) TABLET BY MOUTH EVERY DAY 020 2019 Inactive omeprazole 20 mg capsule,delayed release RxNorm: 260848 TAKE 1 CAPSULE BY MOUTH EVERY DAY 020 2020 Inactive metformin 500 mg tablet RxNorm: 781439 1 Tablet(s) Oral every day 020 2019 Inactive True Metrix Glucose Test Strip RxNorm: 1 Test Strips Miscellaneous two times a day as needed No Stop Date Active metformin 500 mg tablet RxNorm: 120963 1 Tablet(s) Oral every day 020 2019 Inactive diclofenac sodium 75 mg tablet,delayed release RxNorm: 734148 1 Tablet(s) PO BID 2021 Inactive This refill negates all other refills of this medication Sudafed 12 Hour 120 mg tablet,extended release RxNorm: 1115362 TAKE 1 TABLET BY MOUTH EVERY 12 HOURS NEEDED 020 2019 Inactive True Metrix Glucose Test Strip RxNorm: 1 Test Strips Miscellaneous every morning 020 2019 Inactive 100/container True Metrix Glucose Test Strip RxNorm: 1 Test Strips Miscellaneous QA 020 2019 Inactive 100/container loperamide 2 mg tablet RxNorm: 980259 1 Tablet(s) Oral as needed take one tablet after each loose stool, maximum of 8 tablets in 24 hours 020 2019 Inactive cetirizine 10 mg tablet RxNorm: 9907609 1 Tablet(s) PO daily 020 2019 Inactive loperamide 2 mg tablet RxNorm: 344884 1 Tablet(s) Oral as needed take one tablet after each loose stool, maximum of 8 tablets in 24 hours 020 2019 Inactive quetiapine 100 mg tablet RxNorm: 579758 1 Tablet(s) Oral every night at bedtime 2019 Inactive levothyroxine 50 mcg tablet RxNorm: 834745 1 Tablet(s) PO daily 2020 Inactive gabapentin 300 mg capsule RxNorm: 658638 1 Capsule(s) PO TID 2019 Inactive levothyroxine 50 mcg tablet RxNorm: 116123 1 Tablet(s) PO daily 2019 Inactive lisinopril 2.5 mg tablet RxNorm: 283427 1 Tablet(s) PO daily 2020 Inactive gabapentin 300 mg capsule RxNorm: 385770 1 Capsule(s) PO TID 2019 Inactive cetirizine 10 mg tablet RxNorm: 5914014 1 Tablet(s) PO daily 2019 Inactive Singulair 10 mg tablet RxNorm: 837374 1 Tablet(s) PO daily 2020 Inactive gentamicin 0.3 % eye drops RxNorm: 070432 1 Drop(s) ophthalmic (eye) four times a day 2019 Inactive gentamicin 0.3 % eye drops RxNorm: 265857 1 Drop(s) ophthalmic (eye) four times a day 2019 Inactive gentamicin 0.3 % eye drops RxNorm: 172556 1 Drop(s) ophthalmic (eye) four times a day 2019 Inactive hydrochlorothiazide 25 mg tablet RxNorm: 161442 1 Tablet(s) Oral every day 2019 Inactive Sudafed 12 Hour 120 mg tablet,extended release RxNorm: 5031204 TAKE (1) TABLET BY MOUTH EVERY 12 HOURS NEEDED 2019 Inactive loperamide 2 mg tablet RxNorm: 309245 1 Tablet(s) Oral as needed take one tablet after each loose stool, maximum of 8 tablets in 24 hours 2019 Inactive loperamide 2 mg tablet RxNorm: 748744 1 Tablet(s) Oral as needed take one tablet after each loose stool, maximum of 8 tablets in 24 hours 2019 Inactive atorvastatin 40 mg tablet RxNorm: 584873 1 Tablet(s) Oral every day 2020 Inactive quetiapine 100 mg tablet RxNorm: 163104 1 Tablet(s) Oral every night at bedtime 2019 Inactive sertraline 100 mg tablet RxNorm: 379223 1 Tablet(s) Oral 2019 Inactive omeprazole 20 mg capsule,delayed release RxNorm: 946318 1 Capsule(s) Oral every day 2019 Inactive amoxicillin 250 mg capsule RxNorm: 934743 1 Capsule(s) Oral three times a day 2019 Inactive multivitamin with iron-mineral tablet RxNorm: 1 Tablet(s) Oral every day 2021 Inactive cetirizine 10 mg tablet RxNorm: 7067453 1 Tablet(s) PO daily 2019 Inactive This refill negates all other refills of this medication. Please do not auto refill Singulair 10 mg tablet RxNorm: 437788 1 Tablet(s) PO daily 2019 Inactive This refill negates all other refills of this medication gabapentin 300 mg capsule RxNorm: 122850 1 Capsule(s) PO TID 2019 Inactive lisinopril 2.5 mg tablet RxNorm: 231466 1 Tablet(s) PO daily 2019 Inactive levothyroxine 50 mcg tablet RxNorm: 431946 1 Tablet(s) PO daily 2019 Inactive This refill negates all other refills of this medication hydrochlorothiazide 25 mg tablet RxNorm: 479570 1 Tablet(s) Oral every day 2019 Inactive fenugreek seed extract 500 mg capsule RxNorm: 1 Capsule(s) Oral three times a day 020 2021 Inactive Alcohol Prep Pads RxNorm: 245644 1 Patch TOP QAM 020 2020 Inactive loperamide 2 mg tablet RxNorm: 636983 1 Tablet(s) Oral as needed take one [...] 2019 Inactive hydrochlorothiazide 25 mg tablet RxNorm: 117989 1 Tablet(s) Oral every day 2019 Inactive Sudafed 12 Hour 120 mg tablet,extended release RxNorm: 5950183 1 Tablet(s) Oral every 12 hours as needed 2018 Inactive omeprazole 20 mg capsule,delayed release RxNorm: 123052 1 Capsule(s) Oral every day 019 2019 Inactive Sudafed 12 Hour 120 mg tablet,extended release RxNorm: 3219089 1 Tablet(s) Oral every 12 hours as needed 019 2018 Inactive pantoprazole 40 mg tablet,delayed release RxNorm: 822031 1 Tablet(s) Oral every day 2018 Inactive discontinue any other H2Blkr. and PPI albuterol sulfate 2.5 mg/3 mL (0.083 %) solution for nebulization RxNorm: 523829 1 Vial Inhalation every four hours as needed as needed for dyspnea 2019 Inactive 60/box. This refill negates all other refills of this medication. Please do not fill early. Please do not auto refill. Symbicort 160 mcg-4.5 mcg/actuation HFA aerosol inhaler RxNorm: 6053391 2 Puff(s) INH BID No Stop Date Active Alcohol Prep Pads RxNorm: 917029 1 Patch TOP QAM 019 2019 Inactive Ventolin HFA 90 mcg/actuation aerosol inhaler RxNorm: 402512 2 Puff(s) INH QID 019 2019 Inactive Please do not fill early. Please do not auto refill. This refill negates all other refills of this medication True Metrix Glucose Test Strip RxNorm: 1 Test Strips Miscellaneous QAM 019 2019 Inactive 100/container atorvastatin 40 mg tablet RxNorm: 509170 1 Tablet(s) Oral every day 019 2019 Inactive buspirone 7.5 mg tablet RxNorm: 920623 1 Tablet(s) PO BID 019 2020 Inactive This refill negates all other refills of this medication hydrochlorothiazide 12.5 mg tablet RxNorm: 935358 1 Tablet(s) PO QAM 019 2019 Inactive levmetamfetamine 50 mg nasal inhaler RxNorm: 1 Unit(s) NASAL Q3-4H Do not use more than every 3 hours or 8 times/24hours 019 2021 Inactive Please do not auto refill. This refill negates all other refills of this medication Ventolin HFA 90 mcg/actuation aerosol inhaler RxNorm: 040650 2 Puff(s) INH QID 019 2018 Inactive Please do not fill early. Please do not auto refill. This refill negates all other refills of this medication Singulair 10 mg tablet RxNorm: 474378 1 Tablet(s) PO daily 019 2019 Inactive This refill negates all other refills of this medication cetirizine 10 mg tablet RxNorm: 0373651 1 Tablet(s) PO daily 019 2019 Inactive This refill negates all other refills of this medication. Please do not auto refill levothyroxine 50 mcg tablet RxNorm: 829819 1 Tablet(s) PO daily 019 2019 Inactive This refill negates all other refills of this medication diclofenac sodium 75 mg tablet,delayed release RxNorm: 186179 1 Tablet(s) PO BID 019 2019 Inactive This refill negates all other refills of this medication ranitidine 150 mg tablet RxNorm: 540123 1 Tablet(s) PO BID 019 2018 Inactive This refill negates all other refills of this medication Calcium 600-D3 Plus (mag-zinc) 600 mg calcium-800 unit-50 mg tablet RxNorm: 1 Tablet(s) PO daily take an additonal tablet for itching. 019 2018 Inactive This refill negates all other refills of this medication albuterol sulfate 2.5 mg/3 mL (0.083 %) solution for nebulization RxNorm: 554515 1 Vial INH QID 019 2018 Inactive 60/box. This refill negates all other refills of this medication. Please do not fill early. Please do not auto refill. lisinopril 2.5 mg tablet RxNorm: 098978 1 Tablet(s) PO daily 019 2019 Inactive gabapentin 300 mg capsule RxNorm: 329736 1 Capsule(s) PO TID 019 2019 Inactive atorvastatin 20 mg tablet RxNorm: 185472 1 Tablet(s) PO QHS 019 2018 Inactive This refill negates all other refills of this medication TRUEplus Lancets 30 gauge RxNorm: 1 Lancets Miscellaneous QAM 019 2018 Inactive 100/box gabapentin 300 mg capsule RxNorm: 145286 1 Capsule(s) PO TID 019 2018 Inactive Flintstones Complete (iron) 18 mg iron chewable tablet RxNorm: 1 Tablet(s) PO daily 019 2021 Inactive This refill negates all other refills of this medication gabapentin 300 mg capsule RxNorm: 446343 1 Capsule(s) PO TID as needed 019 2018 Inactive True Metrix Glucose Test Strip RxNorm: 1 Test Strips Miscellaneous QAM 019 2018 Inactive 100/container Alcohol Prep Pads RxNorm: 208970 1 Patch TOP QAM 019 2018 Inactive TRUEplus Lancets 30 gauge RxNorm: 1 Lancets Miscellaneous QAM 019 2018 Inactive 100/box lisinopril 2.5 mg tablet RxNorm: 139345 1 Tablet(s) PO daily 019 2018 Inactive ranitidine 150 mg tablet RxNorm: 985103 1 Tablet(s) PO BID 019 2018 Inactive This refill negates all other refills of this medication albuterol sulfate 2.5 mg/3 mL (0.083 %) solution for nebulization RxNorm: 126182 1 Vial INH QID 019 2018 Inactive [...] this medication gabapentin 300 mg capsule RxNorm: 652508 1 Capsule(s) PO TID as needed 019 2018 Inactive atorvastatin 20 mg tablet RxNorm: 169504 1 Tablet(s) PO QHS 019 2018 Inactive This refill negates all other refills of this medication trazodone 50 mg tablet RxNorm: 137619 1 Tablet(s) PO QHS 019 2018 Inactive This refill negates all other refills of this medication Ventolin HFA 90 mcg/actuation aerosol inhaler RxNorm: 030509 2 Puff(s) INH QID 019 2018 Inactive Please do not fill early. Please do not auto refill. This refill negates all other refills of this medication Calcium 600-D3 Plus 600 mg calcium-800 unit-50 mg tablet RxNorm: 1 Tablet(s) PO daily take an additonal tablet for itching. 019 2018 Inactive This refill negates all other refills of this medication Singulair 10 mg tablet RxNorm: 753333 1 Tablet(s) PO daily 019 2018 Inactive This refill negates all other refills of this medication buspirone 7.5 mg tablet RxNorm: 112055 1 Tablet(s) PO BID 019 2018 Inactive This refill negates all other refills of this medication diclofenac sodium 75 mg tablet,delayed release RxNorm: 433490 1 Tablet(s) PO BID 019 2018 Inactive This refill negates all other refills of this medication hydrochlorothiazide 12.5 mg tablet RxNorm: 595474 1 Tablet(s) PO QAM 019 2018 Inactive metoprolol succinate ER 50 mg tablet,extended release 24 hr RxNorm: 416954 1 Tablet(s) PO daily 019 2018 Inactive This refill negates all other refills of this medication levothyroxine 50 mcg tablet RxNorm: 458714 1 Tablet(s) PO daily 019 2018 Inactive This refill negates all other refills of this medication cetirizine 10 mg tablet RxNorm: 6235371 1 Tablet(s) PO daily 019 2018 Inactive This refill negates all other refills of this medication. Please do not auto refill Flintstones Complete (iron) 18 mg iron chewable tablet RxNorm: 1 Tablet(s) PO daily 019 2018 Inactive This refill negates all other refills of this medication buspirone 7.5 mg tablet RxNorm: 609977 1 Tablet(s) PO BID 2018 Inactive cetirizine 10 mg tablet RxNorm: 2125402 1 Tablet(s) PO daily 2018 Inactive Guaiasorb DM 10 mg-100 mg/5 mL oral liquid RxNorm: 659332 10 Milliliter(s) PO As needed every 4 hr 2018 Inactive Vicks Vaporub 4.7 %-1.2 %-2.6 % topical ointment RxNorm: 3319803 1 Application TOP TID 2018 Inactive levmetamfetamine 50 mg nasal inhaler RxNorm: 1 Unit(s) NASAL Q3-4H 2017 Inactive sertraline 50 mg tablet RxNorm: 190173 1 Tablet(s) PO daily 2018 Inactive Please note dose trazodone 50 mg tablet RxNorm: 555286 1 Tablet(s) PO QHS 2018 Inactive sertraline 50 mg tablet RxNorm: 427126 1 Tablet(s) PO daily 2017 Inactive amoxicillin 500 mg tablet RxNorm: 882220 1 Tablet(s) PO Q12H 2017 Inactive albuterol sulfate 2.5 mg/3 mL (0.083 %) solution for nebulization RxNorm: 566042 1 Vial INH QID 2018 Inactive 60/box. Please do not fill early. Please do not auto refill. Prozac 10 mg capsule RxNorm: 909397 1 Capsule(s) PO daily 2017 Inactive buspirone 7.5 mg tablet RxNorm: 737305 1 Tablet(s) PO BID 2018 Inactive gabapentin 300 mg capsule RxNorm: 921041 1 Capsule(s) PO TID as needed 2018 Inactive hydrochlorothiazide 12.5 mg tablet RxNorm: 189145 1 Tablet(s) PO QAM 2018 Inactive ranitidine 150 mg tablet RxNorm: 663245 1 Tablet(s) PO BID 018 2018 Inactive Macrobid 100 mg capsule RxNorm: 085391 1 Capsule(s) PO Q12H 018 2017 Inactive Singulair 10 mg tablet RxNorm: 285669 1 Tablet(s) PO daily 018 2018 Inactive Ventolin HFA 90 mcg/actuation aerosol inhaler RxNorm: 1774328 2 Puff(s) INH QID 018 2018 Inactive Singulair 10 mg tablet RxNorm: 970866 1 Tablet(s) PO daily 018 2017 Inactive buspirone 7.5 mg tablet RxNorm: 602596 1 Tablet(s) PO BID 018 2017 Inactive Prozac 10 mg capsule RxNorm: 680358 1 Capsule(s) PO daily 018 2017 Inactive diclofenac sodium 75 mg tablet,delayed release RxNorm: 610675 1 Tablet(s) PO BID 018 2017 Inactive lisinopril 2.5 mg tablet RxNorm: 210560 1 Tablet(s) PO daily 018 2017 Inactive Neilmed Pediatric Sinus Rinse Refill packet RxNorm: 1 Unit Dose NASAL PRN 018 2021 Inactive metoprolol succinate ER 50 mg tablet,extended release 24 hr RxNorm: 121820 1 Tablet(s) PO daily 018 2017 Inactive levothyroxine 50 mcg tablet RxNorm: 819337 1 Tablet(s) PO daily 018 2017 Inactive TRUEplus Lancets 30 gauge RxNorm: 1 Lancets Miscellaneous QAM 018 2017 Inactive 100/box Ventolin HFA 90 mcg/actuation aerosol inhaler RxNorm: 010845 2 Puff(s) INH QID 018 2017 Inactive Aleve 220 mg capsule RxNorm: 7668312 1 Capsule(s) PO BID 018 2018 Inactive ranitidine 150 mg tablet RxNorm: 027886 1 Tablet(s) PO BID 018 2017 Inactive gabapentin 300 mg capsule RxNorm: 134690 1 Capsule(s) PO TID as needed 018 2017 Inactive atorvastatin 20 mg tablet RxNorm: 712189 1 Tablet(s) PO QHS 018 2017 Inactive True Metrix Glucose Test Strip RxNorm: 1 Test Strips Miscellaneous QAM 018 2017 Inactive 50/container Calcium 600-D3 Plus 600 mg calcium-800 unit-50 mg tablet RxNorm: 1 Tablet(s) PO daily take an additonal tablet for itching. 018 2017 Inactive hydrochlorothiazide 12.5 mg tablet RxNorm: 809943 1 Tablet(s) PO QAM 018 2017 Inactive Flintstones Complete (iron) 18 mg iron chewable tablet RxNorm: 1 Tablet(s) PO daily 018 2017 Inactive True Metrix Glucose Meter RxNorm: miscellaneous 019 2018 Inactive sertraline 50 mg tablet RxNorm: 435232 1 Tablet(s) PO daily 020 2019 Inactive loperamide 2 mg tablet RxNorm: 385410 oral 019 2018 Inactive d-mannose oral powder RxNorm: PO 018 2021 Inactive Symbicort 160 mcg-4.5 mcg/actuation HFA aerosol inhaler RxNorm: 5537209 2 Puff(s) INH BID 019 2018 Inactive Medication Administered No Medication Administered data Procedures Procedure Codes Date [place] Fany Assessment CPT-4: DSWA 04/02 Patient Health [...] CPT-4: VACP Fall Risk Assessment SNOMED CT: 69105366 4 CPT-4: DFRA01/13/2021emmes Fany AssessmentCPT-4: DSWA12/17/2020Urinalysis, dip stickCPT-4: 881718509/24/2020Patient Health QuestionnaireCPT-4: DPHQ 08/19/2020ElectrocardiogramCPT-4: 865558805/14/2020Tobacco Assessment/Screening CPT-4: TCA01/01/2020Fall Risk AssessmentSNOMED CT: 630161377 CPT-4: DFRA01/01/2020Functional AssessmentCPT-4: DFA01/01/2020Semmes Fany AssessmentCPT-4: DSWA11/28/2019Patient Health QuestionnaireCPT-4: DPHQ11/28/2019 [place]k Fany AssessmentCPT-4: DS10/17/2019HypertensionCPT-4: HTN10/17/[address]: 412303630 CPT-4: DFRA09/19/2019Functional AssessmentCPT-4: DFA111/20/2018Urinalysis, dip stickCPT-4: 784460206/21/2019Tobacco Assessment/ScreeningCPT-4: TCA05/24/2019 Patient Health QuestionnaireCPT-4: DPHQ05/24/2019AHA/REBECCA Classification AssessmentCPT-4: DAHA04/25/2019Controlled Substance ReportCPT-4: CTRSU04/25/2019 Urinalysis, dip stickCPT-4: 894946903/28/2019Urinalysis, dip stickCPT-4: 58985 03/28/20199023S8E-PtwrshorbwklthpNGG-6: 71431ZfdtnrzN3I-TvxrmelcrmwdcmbBAV-5: 22615 OjuwhukY7F-AtdaoaxehvowxtfJXM-9: 49026NztjftkB3F-NbhgmhqkjocmacoEUT-2: 18687 DnafxnrP3A-MsgutbpmrlsyaouERW-1: 44545RvmghwkE6G-FmfmfjqzjfooqmiDXW-2: 05088 JyquzgvP1H-SwhntpcsxqayegxAFC-8: 18465DhfachmL0Y-ThwffmktbzsmxgpZPS-0: 74746 DteqnxnI8N-KpjhnusuasxjvojPZE-5: 82361CsdgsjrPuzcovgcah ReferralS[facility]CR[facility]: 573050765 CPT-4: I68Qgrwoxh Reason For Visit No Reason For Visit data Plan of Care Planned Activity Notes Codes Status Date Referral: Pending Gynecology Referral Informatio n Referral ProcessedReferral: Pending Pulmonology Referral InformationReferralProcessed Referral: Pending Psychiatry Referral InformationReferralInitiatedReferral: Pending Respiratory Services Referral InformationReferralInitiatedReferral: Pending Ophthalmology Referral InformationReferralInitiatedReferral: [facility] WPtel: [address] [place] [address] [place] [address] USWriter placed a call out to the patient to notify her that it has been recommended that she be seenby 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 Patient agreed to be seen, does not have a provider of choice and no transportationissues. Plastics Nurse faxed referral and clinical notes to [facility] in [place], [place] near the patient's home. Patient to [...] seen and prefers a provider in the [place] or [place] area. Plastics Nurse placed a call out to everyone listed in the area and the only location that was able to accept the patient's insurance was [address] [id number] and spoke with Maylin. Maylin asked that the patient's referral, face sheet and visit notes be faxed to . Plastics Nurse faxed over requested documents. Patient appointment confirmation letter generated and mailed to her home address. Patient to call to schedule an appointment.ProcessedReferral: [facility] WPtel: [id number] [facility] [address] [place], [place] [id number] USPatient notified that it has been advised that she be seen by Neurology. Patient agreed to be seen and prefers to be seen by a provider in the [place], [place] area. Patient denies any concerns with transportation, and prefers to schedule her own appointment. Plastics Nurse placed a call out to [facility] and spoke with Neeraj Mcfarland: [...]
--- OUTSIDE RECORDS SUMMARY | 2022-07-30 20:00 | XMS_ITS | CCD ---
Author Name Milena BOWMAN, Dr Persaud Address [id number] [place] [address] [address] [place] [address] Phone Organization [facility] Phone Care Team Providers Care Biometrics Experimentalist Name Role Phone Palomo KING, Anna Primary Care Provider Unav ailable Unavailable Chronic Care Management Unavaila ble Summary Purpose DataExchange Insurance Providers Payer name Policy type / Coverage type Covered democrat ID Effective Begin Date Effective End Date [employer]KI [employer] [facility] [id number] Unknown Unknown Family history Mother Diagnosis Age [...] 05/31/2018 Education level Unknown Some High School 10th05/31/20183659ZbbqinlviqIlmnitpQvnozjgrgq34/29/2018Tobacco historySNOMED CT: 439772785Uxe never smoked or chewed xtrkoly5005/31/2018Alcohol historySNOMED CT: 156652353Eyzly drinks alwntxz6405/31/2018Has the patient ever used illegal drugs? UnknownHas never used illegal drugs05/31/2018DNR Order/ Advanced Directive UnknownFull Code05/31/2018 Allergies, Adverse Reactions, Alerts Substance Reaction Codes Entered Date Inactivated Date Status OxyContin itch, RxNorm: 148543 01/13/2021 No Inactive Da te Active *No known food allergies Zovtsyo5209/06/2018No Inactive DateActiveMethylprednisolonehivesRxNorm: 6902 09/06/2018No Inactive DateActive Problems Condition Codes Effective Dates Condition St atus Ankle sprain ICD-10: S93.409A ICD-9: 845.0010/ctiveAdult BMI 50.0-59.9 kg/sq mICD-10: Z68.43 ICD-9: V85.4308/ActiveHypertensive heart diseaseICD-10: I11.9 ICD-9: 402.9003/ctiveHypothyroidICD-10: E03.9 ICD-9: 244.912/01/2018ActiveInfluenza vaccine refusedICD-10: Z28.21 ICD-9: V64.0609/ctiveMajor depression, recurrentICD-10: F33.9 ICD-9: 296.3009/ctiveObstructive sleep apnea (adult) (pediatric)ICD-10: G47.33 ICD-9: 327.2309/ActiveType 2 diabetes mellitus with peripheral neuropathy ICD-10: E11.42 ICD-9: 250.6002/ActiveAbscessICD-10: L02.91 ICD-9: 682.907/ctiveAdjustment disorder with mixed anxiety and depressed moodICD-10: F43.23 ICD-9: 309.2812/01/2018ActiveHyperlipidemia, mixedICD-10: E78.2 ICD-9: 272.203/ctiveHypertensionICD-10: I10 ICD-9: 401.903/2Active(Z00.00-V70.9) Encounter for general adult medical examination without abnormal findingsICD-10: Z00.00 ICD-9: V70.905/2ActiveAllergic rhinitisICD-10: J30.9 ICD-9: 477.903/ctiveAsthmaICD-10: J45.909 ICD-9: 493.9011ActiveGERD (gastroesophageal reflux disease)ICD-10: K21.9 ICD-9: 530.8112/03/2019ActiveEdema, unspecifiedICD-10: R60.9 ICD-9: 782.310ActiveVitamin D deficiencyICD-10: E55.9 ICD-9: 268.903/2ActiveHypertensive heart disease with heart failureICD-10: I11.0 ICD-9: 402.9107Resolved(Z00.01-V70.0) Encounter for general adult medical examination with abnormal findingsICD-10: Z00.01 ICD-9: V70.004/1Resolved(Z12.11-V76.51) Encounter for screening for malignant neoplasm of colonICD-10: Z12.11 ICD-9: V76.5107Resolved(Z12.31-V76.12) Encounter for screening mammogram for malignant neoplasm of breastICD-10: Z12.31 ICD-9: V76.1207Resolved(Z12.4-V76.2) Encounter for screening for malignant neoplasm of cervixICD-10: Z12.4 ICD-9: V76.207Resolved(Z13.31-V79.0) Encounter for screening for depressionICD-10: Z13.31 ICD-9: V79.004/1ResolvedAnorexiaICD-10: R63.0 ICD-9: 783.003/1ResolvedBlisterICD-10: T14.8XXA ICD-9: 919.1ResolvedChronic kidney disease, stage 2 (mild)ICD-10: N18.2 ICD-9: 585.2011ResolvedCOVID-19 virus RNA test result positive at limit of detectionICD-10: U07.1 ICD-9: 079.8909/1ResolvedDiarrheaICD-10: R19.7 ICD-9: 787.9111/1ResolvedDyspnea, unspecifiedICD-10: R06.00 ICD-9: 786.0905ResolvedElevated liver enzymesICD-10: R74.8 ICD-9: 790.504/1ResolvedEncounter for screening for tobacco useICD-10: Z01.89 ICD-9: V72.8503ResolvedEncounter for screening, unspecifiedICD-10: Z13.9 ICD-9: V82.912ResolvedFamily history of seizuresICD-10: Z84.89 ICD-9: V19.807/esolvedHyperlipidemia, unspecifiedICD-10: E78.5 ICD-9: 272.408ResolvedLong term (current) use of non-steroidal anti- inflammatories (NSAID)ICD-10: Z79.1 ICD-9: V58.6409ResolvedPatient Not SeenICD-10: UXZ.01 ICD-9: XZ0.107ResolvedPatient not seenICD-10: UXZ.01 ICD-9: UXZ.0112esolvedUpper respiratory infectionICD-10: J06.9 ICD-9: 465.908esolvedSyncope and collapseICD-10: R55 ICD-9: 780.ActivePost-traumatic stress disorder, unspecifiedICD-10: F43.10 ICD-9: 309.8112ActiveHistory of bladder surgeryICD-10: Z98.890 ICD-9: V45.8904ctiveUrinary retention with incomplete bladder emptying ICD-10: R33.9 ICD-9: 788.ctiveEncounter for immunizationICD-10: Z23 ICD-9: V04.8109InactiveApnea, not elsewhere classifiedICD-10: R06.81 ICD-9: 786.0305/10/2018InactiveChest pain, unspecifiedICD-10: R07.9 ICD-9: 786.5002InactiveChronic kidney disease, unspecifiedICD-10: N18.9 ICD-9: 585.909/InactiveEncounter for immunizationICD-10: Z23 ICD-9: V03.907/InactiveEncounter for preprocedural cardiovascular examinationICD-10: Z01.810 ICD-9: V72.8106/InactiveHeadacheICD-10: R51 ICD-9: 784.001/10/2018InactiveOther buttermaker helper (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ICD-10: Z79.899 ICD-9: V58.6907/InactiveType 2 diabetes mellitus without complications ICD-10: E11.9 ICD-9: 250.0001/10/2018InactiveWheezingICD-10: R06.2 ICD-9: 786.0711/03/2018InactiveAbnormal urine findingICD-10: R82.90 ICD-9: 791.912/ResolvedAbrasion of toeICD-10: S90.416A ICD-9: 917.005/ResolvedPink eyeICD-10: H10.029 ICD-9: 372.0303ResolvedRight wrist painICD-10: M25.531 ICD-9: 719.4308/09/2020ResolvedSinusitisICD-10: J32.9 ICD-9: 473.902/02/2020ResolvedSuperficial burn of multiple sites of right hand, subsequent encounterICD-10: T23.191D ICD-9: V58.8902/1ResolvedUrinary tract infectionICD-10: N39.0 ICD-9: 599.012ResolvedPolyneuropathy, unspecifiedICD-10: G62.9 ICD-9: 356.908ActiveFecal incontinenceICD-10: R15.9 ICD-9: 787.6003/ActiveMixed incontinenceICD-10: N39.46 ICD-9: 788.3308ActiveAbnormal electrocardiogram [ECG] [EKG]ICD-10: R94.31 ICD-9: 794.3108Active Medications Medication Codes Instructions Start Date Stop Date Status Fill Instructions ibuprofen 800 mg tablet RxNorm: 857306 Take 1 Tablet(s) Oral Q8H as needed for pain take with food 022 No Stop Date Active Ozempic 1 mg/dose (4 mg/3 mL) subcutaneous pen injector RxNorm: 8185602 Take 1 Unit Dose Subcutaneous QWeek Tuesday2021 Inactive lisinopril 2.5 mg tablet RxNorm: 924387 Take 1 Tablet(s) Oral every day 022 2021 Inactive lisinopril 2.5 mg tablet RxNorm: 840087 Take 1 Tablet(s) Oral every day 022 2022 Inactive hydrochlorothiazide 25 mg tablet RxNorm: 905576 Take 1 Tablet(s) Oral every day 022 2021 Inactive Ozempic 1 mg/dose (4 mg/3 mL) subcutaneous pen injector RxNorm: 9083656 Take 1 Unit Dose Subcutaneous QWeek 022 2021 Inactive famotidine 20 mg tablet RxNorm: 847864 Take 1 Tablet(s) Oral every morning 2021 Inactive levothyroxine 50 mcg tablet RxNorm: 706799 Take 1 Tablet(s) Oral every day 2021 Inactive atorvastatin 20 mg tablet RxNorm: 890858 Take 1 Tablet(s) Oral every night at bedtime 2021 Inactive Cleocin T 1 % lotion RxNorm: 397574 Take 2 Gram(s) Topical every day 2021 Inactive Cleocin T 1 % lotion RxNorm: 587106 Take 2 Gram(s) Topical every day 022 2021 Inactive Ozempic 1 mg/dose (4 mg/3 mL) subcutaneous pen injector RxNorm: 3396691 Take 1 Unit Dose Subcutaneous QWeek 022 2021 Inactive Ozempic 0.25 mg or 0.5 mg (2 mg/1.5 mL) subcutaneous pen injector RxNorm: 2373883 INJECT 0.5 MGS SUBCUTANEOUSLY EVERY WEEK 2021 Inactive omeprazole 20 mg capsule,delayed release RxNorm: 378014 Take 1 Capsule(s) Oral every evening 022 2021 Inactive levothyroxine 50 mcg tablet RxNorm: 199745 Take 1 Tablet(s) Oral every day 022 2021 Inactive atorvastatin 20 mg tablet RxNorm: 503419 Take 1 Tablet(s) Oral every night at bedtime 2021 Inactive This refill negates all other refills of this medication lisinopril 2.5 mg tablet RxNorm: 065867 Take 1 Tablet(s) Oral every day 2021 Inactive gabapentin 300 mg capsule RxNorm: 638717 Take 1 Capsule(s) Oral three times a day 022 2021 Inactive montelukast 10 mg tablet RxNorm: 561684 Take 1 Tablet(s) Oral every day 2021 Inactive cholecalciferol (vitamin D3) 50 mcg (2,000 unit) tablet RxNorm: 832485 Take 1 Tablet(s) Oral every day 2022 Inactive Myrbetriq 50 mg tablet,extended release RxNorm: 7010409 1 Tablet(s) Oral every day No Stop Date Active Ozempic 0.25 mg or 0.5 mg (2 mg/1.5 mL) subcutaneous pen injector RxNorm: 6820836 inject 0.5 milligrams subcutaneously every week 2021 Inactive Ozempic 0.25 mg or 0.5 mg (2 mg/1.5 mL) subcutaneous pen injector RxNorm: 4269665 Take 0.5 Capsule(s) Injection once a week 022 2021 Inactive omeprazole 20 mg capsule,delayed release RxNorm: 153137 Take 1 Capsule(s) Oral every evening 2020 Inactive Ozempic 0.25 mg or 0.5 mg (2 mg/1.5 mL) subcutaneous pen injector RxNorm: 5372066 Take 0.25 Milligram(s) Subcutaneous once a week 2021 Inactive Easy Touch Alcohol Prep Pads RxNorm: 741746 USE DIRECTED EACH MORNING 021 2021 Inactive Probiotic 10 billion cell capsule RxNorm: 2560223 Take 1 Capsule(s) Oral every day 021 2021 Inactive levothyroxine 50 mcg tablet RxNorm: 582816 Take 1 Tablet(s) Oral every day 2020 Inactive Acid Information Operator (famotidine) 20 mg tablet RxNorm: 840582 Take 1 Tablet(s) Oral every morning 2020 Inactive Heartburn Relief (famotidine) 10 mg tablet RxNorm: 182526 Take 1 Tablet(s) Oral QAM 021 2020 Inactive levothyroxine 50 mcg tablet RxNorm: 191818 Take 1 Tablet(s) Oral QD 2020 Inactive Singulair 10 mg tablet RxNorm: 491969 TAKE (1) TABLET BY MOUTH DAILY 021 2020 Inactive metformin 1,000 mg tablet RxNorm: 820299 1 Tablet(s) Oral two times a day 021 2021 Inactive lisinopril 2.5 mg tablet RxNorm: 187767 Take 1 Tablet(s) Oral every day 021 2020 Inactive hydrochlorothiazide 25 mg tablet RxNorm: 738298 Take 1 Tablet(s) Oral every day 021 2020 Inactive ondansetron 4 mg disintegrating tablet RxNorm: 916314 1 Tablet(s) Oral two times a day 021 2020 Inactive Sudafed 12 Hour 120 mg tablet,extended release RxNorm: 3018902 TAKE 1 TABLET BY MOUTH EVERY 12 HOURS NEEDED 2021 Inactive Heartburn Relief (famotidine) 10 mg tablet RxNorm: 879984 Take 1 Tablet(s) Oral every morning 021 2020 Inactive omeprazole 20 mg capsule,delayed release RxNorm: 797913 1 Capsule(s) Oral every evening 021 2020 Inactive sertraline 100 mg tablet RxNorm: 715637 2 Tablet(s) Oral every day 021 2020 Inactive levothyroxine 50 mcg tablet RxNorm: 425424 TAKE (1) TABLET BY MOUTH DAILY 021 2020 Inactive metformin 500 mg tablet RxNorm: 584305 1 Tablet(s) Oral two times a day take with 500mg to equal 1000mg 021 2020 Inactive gabapentin 300 mg capsule RxNorm: 805981 TAKE 1 CAPSULE BY MOUTH THREE TIMES A DAY 021 2020 Inactive lisinopril 2.5 mg tablet RxNorm: 573015 TAKE 1 TABLET BY MOUTH DAILY 021 2020 Inactive gabapentin 300 mg capsule RxNorm: 693668 TAKE 1 CAPSULE BY MOUTH THREE TIMES A DAY 021 2020 Inactive Singulair 10 mg tablet RxNorm: 643489 TAKE (1) TABLET BY MOUTH DAILY 021 2020 Inactive metformin 1,000 mg tablet RxNorm: 001598 1 Tablet(s) Oral two times a day 021 2020 Inactive atorvastatin 40 mg tablet RxNorm: 432834 1 Tablet(s) Oral every day 021 2020 Inactive omeprazole 20 mg capsule,delayed release RxNorm: 889565 1 Capsule(s) Oral every evening 021 2020 Inactive famotidine 10 mg tablet RxNorm: 018651 1 Tablet(s) Oral every morning 021 2020 Inactive Alcohol Prep Pads RxNorm: 553742 USE EACH MORNING 021 2020 Inactive omeprazole 20 mg capsule,delayed release RxNorm: 897881 1 Capsule(s) Oral two times a day 021 2021 Inactive omeprazole 20 mg capsule,delayed release RxNorm: 151997 TAKE 1 CAPSULE BY MOUTH EVERY DAY 021 2021 Inactive Macrobid 100 mg capsule RxNorm: 971586 1 Capsule(s) Oral every 12 hours with food 2020 Inactive omeprazole 20 mg capsule,delayed release RxNorm: 181705 1 Capsule(s) Oral two times a day 2021 Inactive metformin 1,000 mg tablet RxNorm: 476649 1 Tablet(s) Oral two times a day 2020 Inactive start on September 11, 2020 metformin 500 mg tablet RxNorm: 656311 1 Tablet(s) Oral two times a day take with 500mg to equal 1000mg 2019 Inactive gabapentin 300 mg capsule RxNorm: 227941 TAKE 1 CAPSULE BY MOUTH THREE TIMES DAILY 2020 Inactive cetirizine 10 mg tablet RxNorm: 6613248 TAKE (1) TABLET BY MOUTH DAILY 2020 Inactive metformin 500 mg tablet RxNorm: 036624 1 Tablet(s) Oral two times a day 2019 Inactive loperamide 2 mg tablet RxNorm: 515104 1 Tablet(s) Oral as needed take one tablet after each loose stool, maximum of 8 tablets in 24 hours 2021 Inactive Sudafed 12 Hour 120 mg tablet,extended release RxNorm: 7179473 TAKE 1 TABLET BY MOUTH EVERY 12 HOURS NEEDED 2019 Inactive hydrochlorothiazide 25 mg tablet RxNorm: 949076 TAKE (1) TABLET BY MOUTH EVERY DAY 2019 Inactive omeprazole 20 mg capsule,delayed release RxNorm: 156619 TAKE 1 CAPSULE BY MOUTH EVERY DAY 2020 Inactive metformin 500 mg tablet RxNorm: 351542 1 Tablet(s) Oral every day 2019 Inactive True Metrix Glucose Test Strip RxNorm: 1 Test Strips Miscellaneous two times a day as needed No Stop Date Active metformin 500 mg tablet RxNorm: 405590 1 Tablet(s) Oral every day 2019 Inactive diclofenac sodium 75 mg tablet,delayed release RxNorm: 272962 1 Tablet(s) PO BID 020 2021 Inactive This refill negates all other refills of this medication Sudafed 12 Hour 120 mg tablet,extended release RxNorm: 8901791 TAKE 1 TABLET BY MOUTH EVERY 12 HOURS NEEDED 020 2019 Inactive True Metrix Glucose Test Strip RxNorm: 1 Test Strips Miscellaneous every morning 020 2019 Inactive 100/container True Metrix Glucose Test Strip RxNorm: 1 Test Strips Miscellaneous QAM 020 2019 Inactive 100/container loperamide 2 mg tablet RxNorm: 754458 1 Tablet(s) Oral as needed take one tablet after each loose stool, maximum of 8 tablets in 24 hours 020 2019 Inactive cetirizine 10 mg tablet RxNorm: 8447410 1 Tablet(s) PO daily 020 2019 Inactive loperamide 2 mg tablet RxNorm: 084152 1 Tablet(s) Oral as needed take one tablet after each loose stool, maximum of 8 tablets in 24 hours 020 2019 Inactive quetiapine 100 mg tablet RxNorm: 219522 1 Tablet(s) Oral every night at bedtime 020 2019 Inactive levothyroxine 50 mcg tablet RxNorm: 322174 1 Tablet(s) PO daily 020 2020 Inactive gabapentin 300 mg capsule RxNorm: 205767 1 Capsule(s) PO TID 020 2019 Inactive levothyroxine 50 mcg tablet RxNorm: 399861 1 Tablet(s) PO daily 020 2019 Inactive lisinopril 2.5 mg tablet RxNorm: 572981 1 Tablet(s) PO daily 020 2020 Inactive gabapentin 300 mg capsule RxNorm: 631917 1 Capsule(s) PO TID 020 2019 Inactive cetirizine 10 mg tablet RxNorm: 1633014 1 Tablet(s) PO daily 020 2019 Inactive Singulair 10 mg tablet RxNorm: 827449 1 Tablet(s) PO daily 020 2020 Inactive gentamicin 0.3 % eye drops RxNorm: 432183 1 Drop(s) ophthalmic (eye) four times a day 2019 Inactive gentamicin 0.3 % eye drops RxNorm: 136029 1 Drop(s) ophthalmic (eye) four times a day 020 2019 Inactive gentamicin 0.3 % eye drops RxNorm: 440552 1 Drop(s) ophthalmic (eye) four times a day 2019 Inactive hydrochlorothiazide 25 mg tablet RxNorm: 566182 1 Tablet(s) Oral every day 2019 Inactive Sudafed 12 Hour 120 mg tablet,extended release RxNorm: 3672515 TAKE (1) TABLET BY MOUTH EVERY 12 HOURS NEEDED 2019 Inactive loperamide 2 mg tablet RxNorm: 422660 1 Tablet(s) Oral as needed take one tablet after each loose stool, maximum of 8 tablets in 24 hours 2019 Inactive loperamide 2 mg tablet RxNorm: 326950 1 Tablet(s) Oral as needed take one tablet after each loose stool, maximum of 8 tablets in 24 hours 020 2019 Inactive atorvastatin 40 mg tablet RxNorm: 381766 1 Tablet(s) Oral every day 2020 Inactive quetiapine 100 mg tablet RxNorm: 979685 1 Tablet(s) Oral every night at bedtime 2019 Inactive sertraline 100 mg tablet RxNorm: 528452 1 Tablet(s) Oral 2019 Inactive omeprazole 20 mg capsule,delayed release RxNorm: 367289 1 Capsule(s) Oral every day 020 2019 Inactive amoxicillin 250 mg capsule RxNorm: 246961 1 Capsule(s) Oral three times a day 020 2019 Inactive multivitamin with iron-mineral tablet RxNorm: 1 Tablet(s) Oral every day 020 2021 Inactive cetirizine 10 mg tablet RxNorm: 4537609 1 Tablet(s) PO daily 2019 Inactive This refill negates all other refills of this medication. Please do not auto refill Singulair 10 mg tablet RxNorm: 974629 1 Tablet(s) PO daily 2019 Inactive This refill negates all other refills of this medication gabapentin 300 mg capsule RxNorm: 377162 1 Capsule(s) PO TID 2019 Inactive lisinopril 2.5 mg tablet RxNorm: 614465 1 Tablet(s) PO daily 2019 Inactive levothyroxine 50 mcg tablet RxNorm: 208343 1 Tablet(s) PO daily 2019 Inactive This refill negates all other refills of this medication hydrochlorothiazide 25 mg tablet RxNorm: 950490 1 Tablet(s) Oral every day 2019 Inactive fenugreek seed extract 500 mg capsule RxNorm: 1 Capsule(s) Oral three times a day 2021 Inactive Alcohol Prep Pads RxNorm: 130998 1 Patch TOP QAM 020 2020 Inactive loperamide 2 mg tablet RxNorm: 761858 1 Tablet(s) Oral as needed take one [...] 2019 Inactive hydrochlorothiazide 25 mg tablet RxNorm: 246246 1 Tablet(s) Oral every day 019 2019 Inactive Sudafed 12 Hour 120 mg tablet,extended release RxNorm: 2175891 1 Tablet(s) Oral every 12 hours as needed 2018 Inactive omeprazole 20 mg capsule,delayed release RxNorm: 730814 1 Capsule(s) Oral every day 019 2019 Inactive Sudafed 12 Hour 120 mg tablet,extended release RxNorm: 8825403 1 Tablet(s) Oral every 12 hours as needed 2018 Inactive pantoprazole 40 mg tablet,delayed release RxNorm: 263695 1 Tablet(s) Oral every day 2018 Inactive discontinue any other H2Blkr. and PPI albuterol sulfate 2.5 mg/3 mL (0.083 %) solution for nebulization RxNorm: 441290 1 Vial Inhalation every four hours as needed as needed for dyspnea 2019 Inactive 60/box. This refill negates all other refills of this medication. Please do not fill early. Please do not auto refill. Symbicort 160 mcg-4.5 mcg/actuation HFA aerosol inhaler RxNorm: 5198620 2 Puff(s) INH BID No Stop Date Active Alcohol Prep Pads RxNorm: 494863 1 Patch TOP QAM 019 2019 Inactive Ventolin HFA 90 mcg/actuation aerosol inhaler RxNorm: 013319 2 Puff(s) INH QID 019 2019 Inactive Please do not fill early. Please do not auto refill. This refill negates all other refills of this medication True Metrix Glucose Test Strip RxNorm: 1 Test Strips Miscellaneous QAM 019 2019 Inactive 100/container atorvastatin 40 mg tablet RxNorm: 472476 1 Tablet(s) Oral every day 019 2019 Inactive buspirone 7.5 mg tablet RxNorm: 908511 1 Tablet(s) PO BID 019 2020 Inactive This refill negates all other refills of this medication hydrochlorothiazide 12.5 mg tablet RxNorm: 702557 1 Tablet(s) PO QAM 019 2019 Inactive levmetamfetamine 50 mg nasal inhaler RxNorm: 1 Unit(s) NASAL Q3-4H Do not use more than every 3 hours or 8 times/24hours 019 2021 Inactive Please do not auto refill. This refill negates all other refills of this medication Ventolin HFA 90 mcg/actuation aerosol inhaler RxNorm: 529146 2 Puff(s) INH QID 2018 Inactive Please do not fill early. Please do not auto refill. This refill negates all other refills of this medication Singulair 10 mg tablet RxNorm: 642243 1 Tablet(s) PO daily 019 2019 Inactive This refill negates all other refills of this medication cetirizine 10 mg tablet RxNorm: 9224946 1 Tablet(s) PO daily 019 2019 Inactive This refill negates all other refills of this medication. Please do not auto refill levothyroxine 50 mcg tablet RxNorm: 585899 1 Tablet(s) PO daily 019 2019 Inactive This refill negates all other refills of this medication diclofenac sodium 75 mg tablet,delayed release RxNorm: 441986 1 Tablet(s) PO BID 019 2019 Inactive This refill negates all other refills of this medication ranitidine 150 mg tablet RxNorm: 643680 1 Tablet(s) PO BID 019 2018 Inactive This refill negates all other refills of this medication Calcium 600-D3 Plus (mag-zinc) 600 mg calcium-800 unit-50 mg tablet RxNorm: 1 Tablet(s) PO daily take an additonal tablet for itching. 019 2018 Inactive This refill negates all other refills of this medication albuterol sulfate 2.5 mg/3 mL (0.083 %) solution for nebulization RxNorm: 349957 1 Vial INH QID 2018 Inactive 60/box. This refill negates all other refills of this medication. Please do not fill early. Please do not auto refill. lisinopril 2.5 mg tablet RxNorm: 015301 1 Tablet(s) PO daily 019 2019 Inactive gabapentin 300 mg capsule RxNorm: 930537 1 Capsule(s) PO TID 019 2019 Inactive atorvastatin 20 mg tablet RxNorm: 578568 1 Tablet(s) PO QHS 2018 Inactive This refill negates all other refills of this medication TRUEplus Lancets 30 gauge RxNorm: 1 Lancets Miscellaneous QAM 2018 Inactive 100/box gabapentin 300 mg capsule RxNorm: 978071 1 Capsule(s) PO TID 019 2018 Inactive Flintstones Complete (iron) 18 mg iron chewable tablet RxNorm: 1 Tablet(s) PO daily 019 2021 Inactive This refill negates all other refills of this medication gabapentin 300 mg capsule RxNorm: 226395 1 Capsule(s) PO TID as needed 2018 Inactive True Metrix Glucose Test Strip RxNorm: 1 Test Strips Miscellaneous QA 2018 Inactive 100/container Alcohol Prep Pads RxNorm: 250184 1 Patch TOP QAM 019 2018 Inactive TRUEplus Lancets 30 gauge RxNorm: 1 Lancets Miscellaneous QAM 019 2018 Inactive 100/box lisinopril 2.5 mg tablet RxNorm: 863796 1 Tablet(s) PO daily 019 2018 Inactive ranitidine 150 mg tablet RxNorm: 715474 1 Tablet(s) PO BID 019 2018 Inactive This refill negates all other refills of this medication albuterol sulfate 2.5 mg/3 mL (0.083 %) solution for nebulization RxNorm: 735577 1 Vial INH QID 019 2018 Inactive [...] this medication gabapentin 300 mg capsule RxNorm: 574392 1 Capsule(s) PO TID as needed 019 2018 Inactive atorvastatin 20 mg tablet RxNorm: 530168 1 Tablet(s) PO QHS 019 2018 Inactive This refill negates all other refills of this medication trazodone 50 mg tablet RxNorm: 216826 1 Tablet(s) PO QHS 019 2018 Inactive This refill negates all other refills of this medication Ventolin HFA 90 mcg/actuation aerosol inhaler RxNorm: 067549 2 Puff(s) INH QID 019 2018 Inactive Please do not fill early. Please do not auto refill. This refill negates all other refills of this medication Calcium 600-D3 Plus 600 mg calcium-800 unit-50 mg tablet RxNorm: 1 Tablet(s) PO daily take an additonal tablet for itching. 019 2018 Inactive This refill negates all other refills of this medication Singulair 10 mg tablet RxNorm: 015159 1 Tablet(s) PO daily 019 2018 Inactive This refill negates all other refills of this medication buspirone 7.5 mg tablet RxNorm: 279733 1 Tablet(s) PO BID 019 2018 Inactive This refill negates all other refills of this medication diclofenac sodium 75 mg tablet,delayed release RxNorm: 714539 1 Tablet(s) PO BID 019 2018 Inactive This refill negates all other refills of this medication hydrochlorothiazide 12.5 mg tablet RxNorm: 493070 1 Tablet(s) PO QAM 019 2018 Inactive metoprolol succinate ER 50 mg tablet,extended release 24 hr RxNorm: 277010 1 Tablet(s) PO daily 019 2018 Inactive This refill negates all other refills of this medication levothyroxine 50 mcg tablet RxNorm: 452647 1 Tablet(s) PO daily 019 2018 Inactive This refill negates all other refills of this medication cetirizine 10 mg tablet RxNorm: 1996634 1 Tablet(s) PO daily 019 2018 Inactive This refill negates all other refills of this medication. Please do not auto refill Flintstones Complete (iron) 18 mg iron chewable tablet RxNorm: 1 Tablet(s) PO daily 019 2018 Inactive This refill negates all other refills of this medication buspirone 7.5 mg tablet RxNorm: 295660 1 Tablet(s) PO BID 2018 Inactive cetirizine 10 mg tablet RxNorm: 1728522 1 Tablet(s) PO daily 2018 Inactive Guaiasorb DM 10 mg-100 mg/5 mL oral liquid RxNorm: 585627 10 Milliliter(s) PO As needed every 4 hr 2018 Inactive Vicks Vaporub 4.7 %-1.2 %-2.6 % topical ointment RxNorm: 2252796 1 Application TOP TID 2018 Inactive levmetamfetamine 50 mg nasal inhaler RxNorm: 1 Unit(s) NASAL Q3-4H 018 2017 Inactive sertraline 50 mg tablet RxNorm: 164492 1 Tablet(s) PO daily 2018 Inactive Please note dose trazodone 50 mg tablet RxNorm: 181742 1 Tablet(s) PO QHS 018 2018 Inactive sertraline 50 mg tablet RxNorm: 408362 1 Tablet(s) PO daily 018 2017 Inactive amoxicillin 500 mg tablet RxNorm: 018564 1 Tablet(s) PO Q12H 018 2017 Inactive albuterol sulfate 2.5 mg/3 mL (0.083 %) solution for nebulization RxNorm: 172504 1 Vial INH QID 018 2018 Inactive 60/box. Please do not fill early. Please do not auto refill. Prozac 10 mg capsule RxNorm: 710451 1 Capsule(s) PO daily 018 2017 Inactive buspirone 7.5 mg tablet RxNorm: 301237 1 Tablet(s) PO BID 018 2018 Inactive gabapentin 300 mg capsule RxNorm: 096543 1 Capsule(s) PO TID as needed 018 2018 Inactive hydrochlorothiazide 12.5 mg tablet RxNorm: 321463 1 Tablet(s) PO QAM 018 2018 Inactive ranitidine 150 mg tablet RxNorm: 638399 1 Tablet(s) PO BID 018 2018 Inactive Macrobid 100 mg capsule RxNorm: 187182 1 Capsule(s) PO Q12H 018 2017 Inactive Singulair 10 mg tablet RxNorm: 099093 1 Tablet(s) PO daily 018 2018 Inactive Ventolin HFA 90 mcg/actuation aerosol inhaler RxNorm: 4728022 2 Puff(s) INH QID 018 2018 Inactive Singulair 10 mg tablet RxNorm: 918665 1 Tablet(s) PO daily 018 2017 Inactive buspirone 7.5 mg tablet RxNorm: 083255 1 Tablet(s) PO BID 018 2017 Inactive Prozac 10 mg capsule RxNorm: 511074 1 Capsule(s) PO daily 018 2017 Inactive diclofenac sodium 75 mg tablet,delayed release RxNorm: 544218 1 Tablet(s) PO BID 018 2017 Inactive lisinopril 2.5 mg tablet RxNorm: 785929 1 Tablet(s) PO daily 018 2017 Inactive Neilmed Pediatric Sinus Rinse Refill packet RxNorm: 1 Unit Dose NASAL PRN 018 2021 Inactive metoprolol succinate ER 50 mg tablet,extended release 24 hr RxNorm: 960979 1 Tablet(s) PO daily 018 2017 Inactive levothyroxine 50 mcg tablet RxNorm: 646887 1 Tablet(s) PO daily 018 2017 Inactive TRUEplus Lancets 30 gauge RxNorm: 1 Lancets Miscellaneous QAM 018 2017 Inactive 100/box Ventolin HFA 90 mcg/actuation aerosol inhaler RxNorm: 424883 2 Puff(s) INH QID 018 2017 Inactive Aleve 220 mg capsule RxNorm: 1315524 1 Capsule(s) PO BID 018 2018 Inactive ranitidine 150 mg tablet RxNorm: 304581 1 Tablet(s) PO BID 018 2017 Inactive gabapentin 300 mg capsule RxNorm: 150680 1 Capsule(s) PO TID as needed 018 2017 Inactive atorvastatin 20 mg tablet RxNorm: 040237 1 Tablet(s) PO QHS 018 2017 Inactive True Metrix Glucose Test Strip RxNorm: 1 Test Strips Miscellaneous QAM 018 2017 Inactive 50/container Calcium 600-D3 Plus 600 mg calcium-800 unit-50 mg tablet RxNorm: 1 Tablet(s) PO daily take an additonal tablet for itching. 018 2017 Inactive hydrochlorothiazide 12.5 mg tablet RxNorm: 009605 1 Tablet(s) PO QAM 018 2017 Inactive Flintstones Complete (iron) 18 mg iron chewable tablet RxNorm: 1 Tablet(s) PO daily 018 2017 Inactive True Metrix Glucose Meter RxNorm: miscellaneous 019 2018 Inactive sertraline 50 mg tablet RxNorm: 796074 1 Tablet(s) PO daily 020 2019 Inactive loperamide 2 mg tablet RxNorm: 515074 oral 019 2018 Inactive d-mannose oral powder RxNorm: PO 018 2021 Inactive Symbicort 160 mcg-4.5 mcg/actuation HFA aerosol inhaler RxNorm: 1972286 2 Puff(s) INH BID 019 2018 Inactive Medication Administered No Medication Administered data Procedures Procedure Codes Date Ludlow Fany Assessment CPT-4: DSWA 04/02 Patient Health [...] CPT-4: VACP Fall Risk Assessment SNOMED CT: 10054374 4 CPT-4: DFRA01/13/2021emmes Fany AssessmentCPT-4: DSWA12/17/2020Urinalysis, dip stickCPT-4: 0351923Patient Health QuestionnaireCPT-4: DPHQ 08/19/2020ElectrocardiogramCPT-4: 0364000Tobacco Assessment/Screening CPT-4: TCA01/01/2020Fall Risk AssessmentSNOMED CT: 578036353 CPT-4: DFRA01/01/2020Functional AssessmentCPT-4: DFA01/01/2020Semmes Fany AssessmentCPT-4: DS11/28/2019Patient Health QuestionnaireCPT-4: DPHQ11/28/2019 Ludlow Fany AssessmentCPT-4: DSWA10/17/2019HypertensionCPT-4: HTN10/17/[address]: 507065959 CPT-4: DFRA09/19/2019Functional AssessmentCPT-4: DFA111/20/2018Urinalysis, dip stickCPT-4: 6717763Tobacco Assessment/ScreeningCPT-4: TCA05/24/2019 Patient Health QuestionnaireCPT-4: DPHQ05/24/2019AHA/REBECCA Classification AssessmentCPT-4: DAHA04/25/2019Controlled Substance ReportCPT-4: CTRSU04/25/2019 Urinalysis, dip stickCPT-4: 8574003Urinalysis, dip stickCPT-4: 48769 03/28/20196565L9A-QlsndckigfypwuzLTA-6: 15021NwfftqiI2D-UoypnxdtxgbknzpZXF-3: 97393 HizoaohX8V-EjkbdzlvnuxxaevQLL-3: 02538GfcfxjkO6O-JhhalphlzhqybcnMGF-3: 08449 VqoolbrZ0A-WwlggkphibesgsvNGT-2: 99784TzqngqvU2A-JzggradjtuzxqckXGJ-8: 67343 NpqafsfY1R-EyfdnvifmvrowuuJEY-5: 76252FzqxotbA4Q-FkompkhowiugfynHUO-0: 65131 GfbzawpW8F-GufxcxrbxddmnafKJL-9: 37457VhejogiJ4W-BakisrphtjcgsszTBY-1: [address]: 597359886 CPT-4: S34Hxzqbvn Reason For Visit No Reason For Visit data Plan of Care Planned Activity Notes Codes Status Date Patient Education: Patient Medication Summary Emwncxitd48/29/2022Appointment: Anna Culver WPtel: [address] [place] [address] [id number]/ppointment: Chivo Bishop WPtel: [address] [place] [address] [id number]: Chivo Bishop WPtel: [phone] [place] [address] [id number]: Mikey Nair WPtel: [address] [facility] [id number]: Chivo Bishop WPtel: [address] [place] [address] [id number]: Chivo Bishop WPtel: [address] [place] [address] [id number]: Chivo Bishop WPtel: [address] [place] [address] USETV111/11/2020ppointment: Chivo Bishop WPtel: [address] [place] [address] USETV110/13/2020ppointment: Chivo Bishop WPtel: [address] [place] [address] USETV1ppointment: Chivo Bishop WPtel: [phone] [place] [address] RUFHGU3106/10/2021ppointment: Anna Culver WPtel: [phone] [place] [address] USETV06/02/2021ppointment: Chivo Bishop WPtel: [address] [place] [address] USETV05/20/2021ppointment: Anna Culver WPtel: [address] [place] [address] USETV04/28/2021ppointment: Chivo Bishop WPtel: [phone] [place] [address] USETV04/15/2021ppointment: Anna Culver WPtel: [phone] [place] [address] [id number]: Anna Culver WPtel: [phone] [place] [address] USET03/24/2021ppointment: Anna Culver WPtel: [phone] [place] [address] USET03/13/2021ppointment: Anna Culver WPtel: [phone] [place] [address] [id number]: Chivo Bishop WPtel: [phone] [place] [address] [id number]: Anna Culver WPtel: [phone] [place] [address] USETV01/13/2021ppointment: Anna Culver WPtel: [phone] [place] [address] [id number]: Chivo Bishop WPtel: [phone] [place] [address] USETV11/28/2020ppointment: Anna Culver WPtel: [phone] [place] [address] USETV11/24/2020ppointment: Anna Culver WPtel: [phone] [place] [address] [place] [address] [id number]: Anna Culver WPtel: [phone] [place] [address] [address] [place] [address] UYW0036211/25/2019Appointment: Anna Culver WPtel: [phone] [place] [address] [place] [address] USETV110/26/2019Appointment: Anna Culver WPtel: [phone] [place] [address] USETV110/19/2019Appointment: Anna Culver WPtel: [phone] [place] [address] USETV1Appointment: Anna Culver WPtel: [address] [place] [address] USETV1Appointment: Gianna Birmingham MCtel: [address] [facility] [address] [id number] QWOIIF7707/02/2020Appointment: Anna Culver WPtel: [phone] [place] [address] [id number]: Anna Culver WPtel: [phone] [place] [address] [place] [address] NHH68823/09/2020Appointment: Anna Culver WPtel: [phone] [place] [address] [place] [address] [id number]/Appointment: Anna Culver WPtel: [phone] [place] [address] [place] [address] [id number]: Anna Culver WPtel: [phone] [place] [address] [place] [address] [id number]: Anna Culver WPtel: [address] [facility] [address] [place] [address] [id number]: Anna Culver WPtel: [phone] [place] [address] [address] [place] [address] [id number]: Anna Culver WPtel: [address] [place] [address] [id number]: Anna Culver WPtel: [address] [place] [address] [id number]: Anna Culver WPtel: [address] [place] [address] [id number]: Sudha Hernadez WPtel: [facility] [facility] [place] [id number]: Sudha Hernadez WPtel: [address] [facility] [place] [address] [id number]: Sandip Charlene WPtel: [address] [facility] [id number]: Enedelia Delgado45Appointment: Xaviermoisesanders Charlene WPtel: [address] [facility] [place] [address] [id number]: Javy, Rasta WPtel: [address] [facility] [place] [id number] [id number]: Daltonricht, Rasta WPtel: [address] [facility] [place] [address] [id number]: Hasenthilricht, Rasta WPtel: [address] [facility] [address] [id number]: Rasta Palafox WPtel: [address] [facility] [address] [id number]: Pending Gynecology Referral InformationReferral ProcessedReferral: Pending Pulmonology Referral InformationReferralProcessed Referral: Pending Psychiatry Referral InformationReferralInitiatedReferral: Pending Respiratory Services Referral InformationReferralInitiatedReferral: Pending Ophthalmology Referral InformationReferralInitiatedReferral: [facility] WPtel: [address] [place] [address] [address] [facility] USWriter placed a call out to the patient to notify her that it has been recommended that she be seenby 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 Patient agreed to be seen, does not have a provider of choice and no transportationissues. [employer]el Autom[employer] Technician faxed referral and clinical notes to [facility] in [place], [place] near the patient's home. Patient to [...] seen and prefers a provider in the [facility]. Diesel [employer] Technician placed a call out to everyone listed in the area and the only location that was able to accept the patient's insurance was [place] [address] [place] [address] and spoke with Maylin. Maylin asked that the patient's referral, face sheet and visit notes be faxed to . Dies[employer] Technician faxed over requested documents. Patient appointment confirmation letter generated and mailed to her home address. Patient to call to schedule an appointment.ProcessedReferral: [facility] WPtel: [address] [facility] [address] [id number] USPatient notified that it has been advised that she be seen by Neurology. Patient agreed to be seen and prefers to be seen by a provider in the [place], [place] area. Patient denies any concerns with transportation, and prefers to schedule her own appointment. [employer] Technician placed a call out to [facility] and spoke with Neeraj P: who confirmed that their office is able to acceptnew patients and the patient's insurance. After confirming the providers fax number, global technical writer faxed over the patient's referral, [...]
--- OUTSIDE RECORDS SUMMARY | 2022-08-10 20:00 | XMS_ITS | CCD ---
Author Name Darrell Carrion Address [address] [place] [address] Phone Organization [facility] Phone Care Team Providers Care Telephone Installer Name Role Phone Anna Culver NP Primary Care Provider Unav ailable Unavailable Chronic Care Management Unavaila ble Summary Purpose DataExchange Insurance Providers Payer name Policy type / Coverage type Covered constitution party ID Effective Begin Date Effective End Date SUKI BUTTS MARIA ESTHER [id number] Unknown Unknown Family history Mother Diagnosis Age [...] 05/31/2018 Education level Unknown Some High School 10th05/31/20186919MqfgydfeytPkhlrtdYuxwcnmtqa54/29/2018Tobacco historySNOMED CT: 451801403Nvk never smoked or chewed pwehziw2405/31/2018Alcohol historySNOMED CT: 296843058Ixcmb drinks iwdgzch7105/31/2018Has the patient ever used illegal drugs? UnknownHas never used illegal drugs05/31/2018DNR Order/ Advanced Directive UnknownFull Code05/31/2018 Allergies, Adverse Reactions, Alerts Substance Reaction Codes Entered Date Inactivated Date Status OxyContin itch, RxNorm: 857366 01/13/2021 No Inactive Da te Active *No known food allergies Fcbzqqe5909/06/2018No Inactive DateActiveMethylprednisolonehivesRxNorm: 6902 09/06/2018No Inactive DateActive Problems Condition Codes Effective Dates Condition St atus Asthma ICD-10: J45.909 ICD-9: 493.9011/03/2018ActiveGERD (gastroesophageal reflux disease)ICD-10: K21.9 ICD-9: 530.8112ActiveMajor depression, recurrentICD-10: F33.9 ICD-9: 296.3009/ctiveObstructive sleep apnea (adult) (pediatric)ICD-10: G47.33 ICD-9: 327.2309ActivePost-traumatic stress disorder, unspecifiedICD-10: F43.10 ICD-9: 309.8112ActiveType 2 diabetes mellitus with peripheral neuropathy ICD-10: E11.42 ICD-9: 250.60011/28/2019ActiveAdjustment disorder with mixed anxiety and depressed moodICD-10: F43.23 ICD-9: 309.2812ActiveAnkle sprainICD-10: S93.409A ICD-9: 845.0010/ctiveAdult BMI 50.0-59.9 kg/sq mICD-10: Z68.43 ICD-9: V85.4308/ActiveHypertensive heart diseaseICD-10: I11.9 ICD-9: 402.9003/ctiveHypothyroidICD-10: E03.9 ICD-9: 244.912ActiveInfluenza vaccine refusedICD-10: Z28.21 ICD-9: V64.0609/ctiveAbscessICD-10: L02.91 ICD-9: 682.907/ctiveHyperlipidemia, mixedICD-10: E78.2 ICD-9: 272.203/ctiveHypertensionICD-10: I10 ICD-9: 401.903/ctive(Z00.00-V70.9) Encounter for general adult medical examination without abnormal findingsICD-10: Z00.00 ICD-9: V70.905/ctiveAllergic rhinitisICD-10: J30.9 ICD-9: 477.903/2ActiveEdema, unspecifiedICD-10: R60.9 ICD-9: 782.310/06/2018ActiveVitamin D deficiencyICD-10: E55.9 ICD-9: 268.903/2ActiveHypertensive heart disease [...] R06.00 ICD-9: 786.0905/06/2019ResolvedElevated liver enzymesICD-10: R74.8 ICD-9: 790.504/29/2021ResolvedEncounter for screening for tobacco useICD-10: Z01.89 ICD-9: V72.8503ResolvedEncounter for screening, unspecifiedICD-10: Z13.9 ICD-9: V82.912ResolvedFamily history of seizuresICD-10: Z84.89 ICD-9: V19.807/esolvedHyperlipidemia, unspecifiedICD-10: E78.5 ICD-9: 272.408/ResolvedLong term (current) use of non-steroidal anti- inflammatories (NSAID)ICD-10: Z79.1 ICD-9: V58.6409ResolvedPatient Not SeenICD-10: UXZ.01 ICD-9: XZ0.107ResolvedPatient not seenICD-10: UXZ.01 ICD-9: UXZ.01121ResolvedUpper respiratory infectionICD-10: J06.9 ICD-9: 465.908esolvedSyncope and collapseICD-10: R55 ICD-9: 780.ActiveHistory of bladder surgeryICD-10: Z98.890 ICD-9: V45.89041ActiveUrinary retention with incomplete bladder emptying ICD-10: R33.9 ICD-9: 788.21041ActiveEncounter for immunizationICD-10: Z23 ICD-9: V04.8109InactiveApnea, not elsewhere [...] infectionICD-10: N39.0 ICD-9: 599.012/ResolvedPolyneuropathy, unspecifiedICD-10: G62.9 ICD-9: 356.908/ActiveFecal incontinenceICD-10: R15.9 ICD-9: 787.6003/ActiveMixed incontinenceICD-10: N39.46 ICD-9: 788.3308/ActiveAbnormal electrocardiogram [ECG] [EKG]ICD-10: R94.31 ICD-9: 794.3108/Active Medications Medication Codes Instructions Start Date Stop Date Status Fill Instructions Victoza 2-Sebastián 0.6 mg/0.1 mL (18 mg/3 mL) subcutaneous pen injector RxNorm: 591396 Inject 0.6-1.8 Milligram(s) Subcutaneous once a week Inject 0.6mg/0.1ml week one, 1.2mg/0.2ml week two, 1.8/0.3ml weekly thereafter 022 2021 Inactive ibuprofen 800 mg tablet RxNorm: 027941 Take 1 Tablet(s) Oral Q8H as needed for pain take with food No Stop Date Active Ozempic 1 mg/dose (4 mg/3 mL) subcutaneous pen injector RxNorm: 7222945 Take 1 Unit Dose Subcutaneous QWeek Tuesday 022 2021 Inactive lisinopril 2.5 mg tablet RxNorm: 646619 Take 1 Tablet(s) Oral every day 022 2021 Inactive lisinopril 2.5 mg tablet RxNorm: 408235 Take 1 Tablet(s) Oral every day 022 2022 Inactive hydrochlorothiazide 25 mg tablet RxNorm: 830569 Take 1 Tablet(s) Oral every day 022 2021 Inactive Ozempic 1 mg/dose (4 mg/3 mL) subcutaneous pen injector RxNorm: 2279588 Take 1 Unit Dose Subcutaneous QWeek 022 2021 Inactive famotidine 20 mg tablet RxNorm: 370758 Take 1 Tablet(s) Oral every morning 2021 Inactive levothyroxine 50 mcg tablet RxNorm: 202540 Take 1 Tablet(s) Oral every day 022 2021 Inactive atorvastatin 20 mg tablet RxNorm: 714317 Take 1 Tablet(s) Oral every night at bedtime 2021 Inactive Cleocin T 1 % lotion RxNorm: 740663 Take 2 Gram(s) Topical every day 022 2021 Inactive Cleocin T 1 % lotion RxNorm: 874283 Take 2 Gram(s) Topical every day 022 2021 Inactive Ozempic 1 mg/dose (4 mg/3 mL) subcutaneous pen injector RxNorm: 8840739 Take 1 Unit Dose Subcutaneous QWeek 022 2021 Inactive Ozempic 0.25 mg or 0.5 mg (2 mg/1.5 mL) subcutaneous pen injector RxNorm: 2911884 INJECT 0.5 MGS SUBCUTANEOUSLY EVERY WEEK 2021 Inactive omeprazole 20 mg capsule,delayed release RxNorm: 773311 Take 1 Capsule(s) Oral every evening 2021 Inactive levothyroxine 50 mcg tablet RxNorm: 257704 Take 1 Tablet(s) Oral every day 022 2021 Inactive atorvastatin 20 mg tablet RxNorm: 120098 Take 1 Tablet(s) Oral every night at bedtime 2021 Inactive This refill negates all other refills of this medication lisinopril 2.5 mg tablet RxNorm: 665593 Take 1 Tablet(s) Oral every day 2021 Inactive gabapentin 300 mg capsule RxNorm: 568140 Take 1 Capsule(s) Oral three times a day 022 2021 Inactive montelukast 10 mg tablet RxNorm: 071339 Take 1 Tablet(s) Oral every day 022 2021 Inactive cholecalciferol (vitamin D3) 50 mcg (2,000 unit) tablet RxNorm: 223196 Take 1 Tablet(s) Oral every day 2022 Inactive Myrbetriq 50 mg tablet,extended release RxNorm: 3262153 1 Tablet(s) Oral every day 022 No Stop Date Active Ozempic 0.25 mg or 0.5 mg (2 mg/1.5 mL) subcutaneous pen injector RxNorm: 6513004 inject 0.5 milligrams subcutaneously every week 022 2021 Inactive Ozempic 0.25 mg or 0.5 mg (2 mg/1.5 mL) subcutaneous pen injector RxNorm: 5002680 Take 0.5 Capsule(s) Injection once a week 022 2021 Inactive omeprazole 20 mg capsule,delayed release RxNorm: 849030 Take 1 Capsule(s) Oral every evening 2020 Inactive Ozempic 0.25 mg or 0.5 mg (2 mg/1.5 mL) subcutaneous pen injector RxNorm: 0498236 Take 0.25 Milligram(s) Subcutaneous once a week 2021 Inactive Easy Touch Alcohol Prep Pads RxNorm: 716048 USE DIRECTED EACH MORNING 2021 Inactive Probiotic 10 billion cell capsule RxNorm: 2623681 Take 1 Capsule(s) Oral every day 2021 Inactive levothyroxine 50 mcg tablet RxNorm: 366608 Take 1 Tablet(s) Oral every day 2020 Inactive Acid Bill Recapitulation Clerk (famotidine) 20 mg tablet RxNorm: 960012 Take 1 Tablet(s) Oral every morning 2020 Inactive Heartburn Relief (famotidine) 10 mg tablet RxNorm: 906076 Take 1 Tablet(s) Oral QAM 021 2020 Inactive levothyroxine 50 mcg tablet RxNorm: 420348 Take 1 Tablet(s) Oral QD 021 2020 Inactive Singulair 10 mg tablet RxNorm: 374069 TAKE (1) TABLET BY MOUTH DAILY 2020 Inactive metformin 1,000 mg tablet RxNorm: 587707 1 Tablet(s) Oral two times a day 2021 Inactive lisinopril 2.5 mg tablet RxNorm: 115202 Take 1 Tablet(s) Oral every day 2020 Inactive hydrochlorothiazide 25 mg tablet RxNorm: 768097 Take 1 Tablet(s) Oral every day 021 2020 Inactive ondansetron 4 mg disintegrating tablet RxNorm: 503104 1 Tablet(s) Oral two times a day 021 2020 Inactive Sudafed 12 Hour 120 mg tablet,extended release RxNorm: 7940126 TAKE 1 TABLET BY MOUTH EVERY 12 HOURS NEEDED 021 2021 Inactive Heartburn Relief (famotidine) 10 mg tablet RxNorm: 009701 Take 1 Tablet(s) Oral every morning 021 2020 Inactive omeprazole 20 mg capsule,delayed release RxNorm: 442683 1 Capsule(s) Oral every evening 021 2020 Inactive sertraline 100 mg tablet RxNorm: 519086 2 Tablet(s) Oral every day 021 2020 Inactive levothyroxine 50 mcg tablet RxNorm: 386909 TAKE (1) TABLET BY MOUTH DAILY 021 2020 Inactive metformin 500 mg tablet RxNorm: 971993 1 Tablet(s) Oral two times a day take with 500mg to equal 1000mg 021 2020 Inactive gabapentin 300 mg capsule RxNorm: 141844 TAKE 1 CAPSULE BY MOUTH THREE TIMES A DAY 021 2020 Inactive lisinopril 2.5 mg tablet RxNorm: 051353 TAKE 1 TABLET BY MOUTH DAILY 021 2020 Inactive gabapentin 300 mg capsule RxNorm: 804166 TAKE 1 CAPSULE BY MOUTH THREE TIMES A DAY 021 2020 Inactive Singulair 10 mg tablet RxNorm: 864135 TAKE (1) TABLET BY MOUTH DAILY 021 2020 Inactive metformin 1,000 mg tablet RxNorm: 929892 1 Tablet(s) Oral two times a day 021 2020 Inactive atorvastatin 40 mg tablet RxNorm: 600034 1 Tablet(s) Oral every day 021 2020 Inactive omeprazole 20 mg capsule,delayed release RxNorm: 038155 1 Capsule(s) Oral every evening 021 2020 Inactive famotidine 10 mg tablet RxNorm: 959206 1 Tablet(s) Oral every morning 021 2020 Inactive Alcohol Prep Pads RxNorm: 686379 USE EACH MORNING 2020 Inactive omeprazole 20 mg capsule,delayed release RxNorm: 118474 1 Capsule(s) Oral two times a day 2021 Inactive omeprazole 20 mg capsule,delayed release RxNorm: 940752 TAKE 1 CAPSULE BY MOUTH EVERY DAY 2021 Inactive Macrobid 100 mg capsule RxNorm: 197051 1 Capsule(s) Oral every 12 hours with food 2020 Inactive omeprazole 20 mg capsule,delayed release RxNorm: 687704 1 Capsule(s) Oral two times a day 2021 Inactive metformin 1,000 mg tablet RxNorm: 941348 1 Tablet(s) Oral two times a day 2020 Inactive start on September 11, 2020 metformin 500 mg tablet RxNorm: 757985 1 Tablet(s) Oral two times a day take with 500mg to equal 1000mg 2019 Inactive gabapentin 300 mg capsule RxNorm: 849398 TAKE 1 CAPSULE BY MOUTH THREE TIMES DAILY 2020 Inactive cetirizine 10 mg tablet RxNorm: 3850718 TAKE (1) TABLET BY MOUTH DAILY 2020 Inactive metformin 500 mg tablet RxNorm: 305378 1 Tablet(s) Oral two times a day 2019 Inactive loperamide 2 mg tablet RxNorm: 118549 1 Tablet(s) Oral as needed take one tablet after each loose stool, maximum of 8 tablets in 24 hours 2021 Inactive Sudafed 12 Hour 120 mg tablet,extended release RxNorm: 9562329 TAKE 1 TABLET BY MOUTH EVERY 12 HOURS NEEDED 2019 Inactive hydrochlorothiazide 25 mg tablet RxNorm: 712964 TAKE (1) TABLET BY MOUTH EVERY DAY 2019 Inactive omeprazole 20 mg capsule,delayed release RxNorm: 729817 TAKE 1 CAPSULE BY MOUTH EVERY DAY 2020 Inactive metformin 500 mg tablet RxNorm: 395150 1 Tablet(s) Oral every day 2019 Inactive True Metrix Glucose Test Strip RxNorm: 1 Test Strips Miscellaneous two times a day as needed No Stop Date Active metformin 500 mg tablet RxNorm: 165999 1 Tablet(s) Oral every day 2019 Inactive diclofenac sodium 75 mg tablet,delayed release RxNorm: 076827 1 Tablet(s) PO BID 2021 Inactive This refill negates all other refills of this medication Sudafed 12 Hour 120 mg tablet,extended release RxNorm: 6255876 TAKE 1 TABLET BY MOUTH EVERY 12 HOURS NEEDED 020 2019 Inactive True Metrix Glucose Test Strip RxNorm: 1 Test Strips Miscellaneous every morning 2019 Inactive 100/container True Metrix Glucose Test Strip RxNorm: 1 Test Strips Miscellaneous QAM 020 2019 Inactive 100/container loperamide 2 mg tablet RxNorm: 094113 1 Tablet(s) Oral as needed take one tablet after each loose stool, maximum of 8 tablets in 24 hours 2019 Inactive cetirizine 10 mg tablet RxNorm: 2772966 1 Tablet(s) PO daily 2019 Inactive loperamide 2 mg tablet RxNorm: 233066 1 Tablet(s) Oral as needed take one tablet after each loose stool, maximum of 8 tablets in 24 hours 020 2019 Inactive quetiapine 100 mg tablet RxNorm: 479009 1 Tablet(s) Oral every night at bedtime 2019 Inactive levothyroxine 50 mcg tablet RxNorm: 215028 1 Tablet(s) PO daily 2020 Inactive gabapentin 300 mg capsule RxNorm: 904628 1 Capsule(s) PO TID 2019 Inactive levothyroxine 50 mcg tablet RxNorm: 542750 1 Tablet(s) PO daily 2019 Inactive lisinopril 2.5 mg tablet RxNorm: 156826 1 Tablet(s) PO daily 020 2020 Inactive gabapentin 300 mg capsule RxNorm: 303588 1 Capsule(s) PO TID 2019 Inactive cetirizine 10 mg tablet RxNorm: 8993304 1 Tablet(s) PO daily 2019 Inactive Singulair 10 mg tablet RxNorm: 944155 1 Tablet(s) PO daily 2020 Inactive gentamicin 0.3 % eye drops RxNorm: 018612 1 Drop(s) ophthalmic (eye) four times a day 2019 Inactive gentamicin 0.3 % eye drops RxNorm: 372746 1 Drop(s) ophthalmic (eye) four times a day 2019 Inactive gentamicin 0.3 % eye drops RxNorm: 081621 1 Drop(s) ophthalmic (eye) four times a day 2019 Inactive hydrochlorothiazide 25 mg tablet RxNorm: 384256 1 Tablet(s) Oral every day 2019 Inactive Sudafed 12 Hour 120 mg tablet,extended release RxNorm: 3624049 TAKE (1) TABLET BY MOUTH EVERY 12 HOURS NEEDED 2019 Inactive loperamide 2 mg tablet RxNorm: 825776 1 Tablet(s) Oral as needed take one tablet after each loose stool, maximum of 8 tablets in 24 hours 2019 Inactive loperamide 2 mg tablet RxNorm: 682435 1 Tablet(s) Oral as needed take one tablet after each loose stool, maximum of 8 tablets in 24 hours 2019 Inactive atorvastatin 40 mg tablet RxNorm: 468863 1 Tablet(s) Oral every day 2020 Inactive quetiapine 100 mg tablet RxNorm: 345745 1 Tablet(s) Oral every night at bedtime 2019 Inactive sertraline 100 mg tablet RxNorm: 960089 1 Tablet(s) Oral 020 2019 Inactive omeprazole 20 mg capsule,delayed release RxNorm: 709666 1 Capsule(s) Oral every day 020 2019 Inactive amoxicillin 250 mg capsule RxNorm: 742049 1 Capsule(s) Oral three times a day 2019 Inactive multivitamin with iron-mineral tablet RxNorm: 1 Tablet(s) Oral every day 020 2021 Inactive cetirizine 10 mg tablet RxNorm: 7855483 1 Tablet(s) PO daily 2019 Inactive This refill negates all other refills of this medication. Please do not auto refill Singulair 10 mg tablet RxNorm: 395359 1 Tablet(s) PO daily 2019 Inactive This refill negates all other refills of this medication gabapentin 300 mg capsule RxNorm: 287131 1 Capsule(s) PO TID 2019 Inactive lisinopril 2.5 mg tablet RxNorm: 759151 1 Tablet(s) PO daily 2019 Inactive levothyroxine 50 mcg tablet RxNorm: 273607 1 Tablet(s) PO daily 2019 Inactive This refill negates all other refills of this medication hydrochlorothiazide 25 mg tablet RxNorm: 206921 1 Tablet(s) Oral every day 2019 Inactive fenugreek seed extract 500 mg capsule RxNorm: 1 Capsule(s) Oral three times a day 2021 Inactive Alcohol Prep Pads RxNorm: 336159 1 Patch TOP QAM 2020 Inactive loperamide 2 mg tablet RxNorm: 046748 1 Tablet(s) Oral as needed take one [...] 2019 Inactive hydrochlorothiazide 25 mg tablet RxNorm: 667697 1 Tablet(s) Oral every day 019 2019 Inactive Sudafed 12 Hour 120 mg tablet,extended release RxNorm: 4640152 1 Tablet(s) Oral every 12 hours as needed 019 2018 Inactive omeprazole 20 mg capsule,delayed release RxNorm: 787949 1 Capsule(s) Oral every day 2019 Inactive Sudafed 12 Hour 120 mg tablet,extended release RxNorm: 2030775 1 Tablet(s) Oral every 12 hours as needed 2018 Inactive pantoprazole 40 mg tablet,delayed release RxNorm: 570276 1 Tablet(s) Oral every day 2018 Inactive discontinue any other H2Blkr. and PPI albuterol sulfate 2.5 mg/3 mL (0.083 %) solution for nebulization RxNorm: 233063 1 Vial Inhalation every four hours as needed as needed for dyspnea 2019 Inactive 60/box. This refill negates all other refills of this medication. Please do not fill early. Please do not auto refill. Symbicort 160 mcg-4.5 mcg/actuation HFA aerosol inhaler RxNorm: 3629959 2 Puff(s) INH BID No Stop Date Active Alcohol Prep Pads RxNorm: 270441 1 Patch TOP QAM 019 2019 Inactive Ventolin HFA 90 mcg/actuation aerosol inhaler RxNorm: 007083 2 Puff(s) INH QID 019 2019 Inactive Please do not fill early. Please do not auto refill. This refill negates all other refills of this medication True Metrix Glucose Test Strip RxNorm: 1 Test Strips Miscellaneous QAM 019 2019 Inactive 100/container atorvastatin 40 mg tablet RxNorm: 518122 1 Tablet(s) Oral every day 019 2019 Inactive buspirone 7.5 mg tablet RxNorm: 515614 1 Tablet(s) PO BID 019 2020 Inactive This refill negates all other refills of this medication hydrochlorothiazide 12.5 mg tablet RxNorm: 141767 1 Tablet(s) PO QAM 019 2019 Inactive levmetamfetamine 50 mg nasal inhaler RxNorm: 1 Unit(s) NASAL Q3-4H Do not use more than every 3 hours or 8 times/24hours 019 2021 Inactive Please do not auto refill. This refill negates all other refills of this medication Ventolin HFA 90 mcg/actuation aerosol inhaler RxNorm: 216892 2 Puff(s) INH QID 019 2018 Inactive Please do not fill early. Please do not auto refill. This refill negates all other refills of this medication Singulair 10 mg tablet RxNorm: 759671 1 Tablet(s) PO daily 019 2019 Inactive This refill negates all other refills of this medication cetirizine 10 mg tablet RxNorm: 0756772 1 Tablet(s) PO daily 019 2019 Inactive This refill negates all other refills of this medication. Please do not auto refill levothyroxine 50 mcg tablet RxNorm: 360309 1 Tablet(s) PO daily 019 2019 Inactive This refill negates all other refills of this medication diclofenac sodium 75 mg tablet,delayed release RxNorm: 082804 1 Tablet(s) PO BID 019 2019 Inactive This refill negates all other refills of this medication ranitidine 150 mg tablet RxNorm: 125905 1 Tablet(s) PO BID 019 2018 Inactive This refill negates all other refills of this medication Calcium 600-D3 Plus (mag-zinc) 600 mg calcium-800 unit-50 mg tablet RxNorm: 1 Tablet(s) PO daily take an additonal tablet for itching. 019 2018 Inactive This refill negates all other refills of this medication albuterol sulfate 2.5 mg/3 mL (0.083 %) solution for nebulization RxNorm: 038370 1 Vial INH QID 019 2018 Inactive 60/box. This refill negates all other refills of this medication. Please do not fill early. Please do not auto refill. lisinopril 2.5 mg tablet RxNorm: 605418 1 Tablet(s) PO daily 019 2019 Inactive gabapentin 300 mg capsule RxNorm: 478309 1 Capsule(s) PO TID 019 2019 Inactive atorvastatin 20 mg tablet RxNorm: 164641 1 Tablet(s) PO QHS 2018 Inactive This refill negates all other refills of this medication TRUEplus Lancets 30 gauge RxNorm: 1 Lancets Miscellaneous QAM 019 2018 Inactive 100/box gabapentin 300 mg capsule RxNorm: 053405 1 Capsule(s) PO TID 019 2018 Inactive Flintstones Complete (iron) 18 mg iron chewable tablet RxNorm: 1 Tablet(s) PO daily 019 2021 Inactive This refill negates all other refills of this medication gabapentin 300 mg capsule RxNorm: 107648 1 Capsule(s) PO TID as needed 019 2018 Inactive True Metrix Glucose Test Strip RxNorm: 1 Test Strips Miscellaneous QAM 019 2018 Inactive 100/container Alcohol Prep Pads RxNorm: 095695 1 Patch TOP QAM 019 2018 Inactive TRUEplus Lancets 30 gauge RxNorm: 1 Lancets Miscellaneous QAM 019 2018 Inactive 100/box lisinopril 2.5 mg tablet RxNorm: 958009 1 Tablet(s) PO daily 019 2018 Inactive ranitidine 150 mg tablet RxNorm: 778786 1 Tablet(s) PO BID 019 2018 Inactive This refill negates all other refills of this medication albuterol sulfate 2.5 mg/3 mL (0.083 %) solution for nebulization RxNorm: 333069 1 Vial INH QID 019 2018 Inactive [...] this medication gabapentin 300 mg capsule RxNorm: 571198 1 Capsule(s) PO TID as needed 019 2018 Inactive atorvastatin 20 mg tablet RxNorm: 111363 1 Tablet(s) PO QHS 019 2018 Inactive This refill negates all other refills of this medication trazodone 50 mg tablet RxNorm: 993328 1 Tablet(s) PO QHS 019 2018 Inactive This refill negates all other refills of this medication Ventolin HFA 90 mcg/actuation aerosol inhaler RxNorm: 382564 2 Puff(s) INH QID 019 2018 Inactive Please do not fill early. Please do not auto refill. This refill negates all other refills of this medication Calcium 600-D3 Plus 600 mg calcium-800 unit-50 mg tablet RxNorm: 1 Tablet(s) PO daily take an additonal tablet for itching. 019 2018 Inactive This refill negates all other refills of this medication Singulair 10 mg tablet RxNorm: 553135 1 Tablet(s) PO daily 019 2018 Inactive This refill negates all other refills of this medication buspirone 7.5 mg tablet RxNorm: 304210 1 Tablet(s) PO BID 019 2018 Inactive This refill negates all other refills of this medication diclofenac sodium 75 mg tablet,delayed release RxNorm: 186975 1 Tablet(s) PO BID 019 2018 Inactive This refill negates all other refills of this medication hydrochlorothiazide 12.5 mg tablet RxNorm: 458265 1 Tablet(s) PO QAM 019 2018 Inactive metoprolol succinate ER 50 mg tablet,extended release 24 hr RxNorm: 837574 1 Tablet(s) PO daily 019 2018 Inactive This refill negates all other refills of this medication levothyroxine 50 mcg tablet RxNorm: 221787 1 Tablet(s) PO daily 019 2018 Inactive This refill negates all other refills of this medication cetirizine 10 mg tablet RxNorm: 3190243 1 Tablet(s) PO daily 019 2018 Inactive This refill negates all other refills of this medication. Please do not auto refill Flintstones Complete (iron) 18 mg iron chewable tablet RxNorm: 1 Tablet(s) PO daily 019 2018 Inactive This refill negates all other refills of this medication buspirone 7.5 mg tablet RxNorm: 486913 1 Tablet(s) PO BID 019 2018 Inactive cetirizine 10 mg tablet RxNorm: 2097304 1 Tablet(s) PO daily 2018 Inactive Guaiasorb DM 10 mg-100 mg/5 mL oral liquid RxNorm: 917327 10 Milliliter(s) PO As needed every 4 hr 2018 Inactive Vicks Vaporub 4.7 %-1.2 %-2.6 % topical ointment RxNorm: 6054816 1 Application TOP TID 2018 Inactive levmetamfetamine 50 mg nasal inhaler RxNorm: 1 Unit(s) NASAL Q3-4H 2017 Inactive sertraline 50 mg tablet RxNorm: 096265 1 Tablet(s) PO daily 2018 Inactive Please note dose trazodone 50 mg tablet RxNorm: 755329 1 Tablet(s) PO QHS 2018 Inactive sertraline 50 mg tablet RxNorm: 875865 1 Tablet(s) PO daily 2017 Inactive amoxicillin 500 mg tablet RxNorm: 081938 1 Tablet(s) PO Q12H 2017 Inactive albuterol sulfate 2.5 mg/3 mL (0.083 %) solution for nebulization RxNorm: 226494 1 Vial INH QID 2018 Inactive 60/box. Please do not fill early. Please do not auto refill. Prozac 10 mg capsule RxNorm: 819014 1 Capsule(s) PO daily 2017 Inactive buspirone 7.5 mg tablet RxNorm: 874462 1 Tablet(s) PO BID 018 2018 Inactive gabapentin 300 mg capsule RxNorm: 101334 1 Capsule(s) PO TID as needed 2018 Inactive hydrochlorothiazide 12.5 mg tablet RxNorm: 106530 1 Tablet(s) PO QAM 2018 Inactive ranitidine 150 mg tablet RxNorm: 344606 1 Tablet(s) PO BID 2018 Inactive Macrobid 100 mg capsule RxNorm: 396094 1 Capsule(s) PO Q12H 018 2017 Inactive Singulair 10 mg tablet RxNorm: 577327 1 Tablet(s) PO daily 2018 Inactive Ventolin HFA 90 mcg/actuation aerosol inhaler RxNorm: 5326441 2 Puff(s) INH QID 018 2018 Inactive Singulair 10 mg tablet RxNorm: 168743 1 Tablet(s) PO daily 018 2017 Inactive buspirone 7.5 mg tablet RxNorm: 006499 1 Tablet(s) PO BID 018 2017 Inactive Prozac 10 mg capsule RxNorm: 923660 1 Capsule(s) PO daily 018 2017 Inactive diclofenac sodium 75 mg tablet,delayed release RxNorm: 718194 1 Tablet(s) PO BID 018 2017 Inactive lisinopril 2.5 mg tablet RxNorm: 981532 1 Tablet(s) PO daily 018 2017 Inactive Neilmed Pediatric Sinus Rinse Refill packet RxNorm: 1 Unit Dose NASAL PRN 018 2021 Inactive metoprolol succinate ER 50 mg tablet,extended release 24 hr RxNorm: 413212 1 Tablet(s) PO daily 018 2017 Inactive levothyroxine 50 mcg tablet RxNorm: 825908 1 Tablet(s) PO daily 018 2017 Inactive TRUEplus Lancets 30 gauge RxNorm: 1 Lancets Miscellaneous QAM 018 2017 Inactive 100/box Ventolin HFA 90 mcg/actuation aerosol inhaler RxNorm: 773893 2 Puff(s) INH QID 018 2017 Inactive Aleve 220 mg capsule RxNorm: 2969326 1 Capsule(s) PO BID 018 2018 Inactive ranitidine 150 mg tablet RxNorm: 696598 1 Tablet(s) PO BID 018 2017 Inactive gabapentin 300 mg capsule RxNorm: 703668 1 Capsule(s) PO TID as needed 018 2017 Inactive atorvastatin 20 mg tablet RxNorm: 809080 1 Tablet(s) PO QHS 018 2017 Inactive True Metrix Glucose Test Strip RxNorm: 1 Test Strips Miscellaneous QAM 018 2017 Inactive 50/container Calcium 600-D3 Plus 600 mg calcium-800 unit-50 mg tablet RxNorm: 1 Tablet(s) PO daily take an additonal tablet for itching. 018 2017 Inactive hydrochlorothiazide 12.5 mg tablet RxNorm: 299348 1 Tablet(s) PO QAM 018 2017 Inactive Flintstones Complete (iron) 18 mg iron chewable tablet RxNorm: 1 Tablet(s) PO daily 018 2017 Inactive True Metrix Glucose Meter RxNorm: miscellaneous 019 2018 Inactive sertraline 50 mg tablet RxNorm: 053758 1 Tablet(s) PO daily 020 2019 Inactive loperamide 2 mg tablet RxNorm: 519222 oral 019 2018 Inactive d-mannose oral powder RxNorm: PO 018 2021 Inactive Symbicort 160 mcg-4.5 mcg/actuation HFA aerosol inhaler RxNorm: 6450179 2 Puff(s) INH BID 019 2018 Inactive Medication Administered No Medication Administered data Procedures Procedure Codes Date Patient General Health Asses semnt Compared to one year ago, how would you rate your health in general?/the same CPT-4: TGKLJejyosi22/09/2022emmes Fany AssessmentCPT-4: DSWA04/19/2022 Patient Health QuestionnaireCPT-4: DPHQ04/19/2022nnual Wellness Visit (Subsequent Visit)CPT-4: [id number] Health QuestionnaireCPT-4: DPHQ 10/07/2021Frailty ScreeningCPT-4: SFD05/20/2021HypertensionCPT-4: HTN04/01/2021 Tobacco Assessment/ScreeningCPT-4: TCA03/13/2021atient Health QuestionnaireCPT- 4: DPHQ03/13/2021Mini Mental State ExamCPT-4: DMMA01/29/2021nnual Wellness Visit (Subsequent Visit)CPT-4: X311051/dvanced Care PlanningCPT-4: VACP 01/13/2021Fall Risk AssessmentSNOMED CT: 582957791 CPT-4: DFRA01/13/2021emmes Fany AssessmentCPT-4: DSWA12/17/2020Urinalysis, dip stickCPT-4: 784087709/24/2020Patient Health QuestionnaireCPT-4: DPHQ 08/19/2020ElectrocardiogramCPT-4: 2061628Tobacco Assessment/Screening CPT-4: TCA01/01/2020Fall Risk AssessmentSNOMED CT: 998689252 CPT-4: DFRA01/01/2020Functional AssessmentCPT-4: DFA01/01/2020Semmes Fany AssessmentCPT-4: DSWA11/28/2019Patient Health QuestionnaireCPT-4: DPHQ11/28/2019 Shelby Fany AssessmentCPT-4: DSWA10/17/2019HypertensionCPT-4: HTN10/17/[address]: 912609439 CPT-4: DFRA09/19/2019Functional AssessmentCPT-4: DFA111/20/2018Urinalysis, dip stickCPT-4: 166499906/21/2019Tobacco Assessment/ScreeningCPT-4: TCA05/24/2019 Patient Health QuestionnaireCPT-4: DPHQ05/24/2019AHA/REBECCA Classification AssessmentCPT-4: DAHA04/25/2019Controlled Substance ReportCPT-4: CTRSU04/25/2019 Urinalysis, dip stickCPT-4: 528656803/28/2019Urinalysis, dip stickCPT-4: 09686 03/28/20191496E9R-KvxjdlssitndhjhRGM-1: 71326GnndjbuS6G-NljzlsmzwilyeaaMPL-8: 85094 UwhgbkmP0P-PeecnromrwcufyaRAG-2: 48675NhuszemR3P-QjviquxrcawnmupIPN-3: 51890 FgqhezwS0T-WmdddpzlxznnxsiOGF-9: 83890IcpfecmN6M-MouaieskvjvesjsDPW-7: 23434 ZpepnagT7D-LvyhrlnsjhbnhilVHB-5: 60942UmptituH9F-EtbndjhixbjvgojOWK-2: 44385 HwgceepO7T-BtpzkxooazknxcoPGP-8: 75840RdclvvlS0K-WllqmiwjeuppeubHJB-2: 08959 UnknownGynecology ReferralSMCLEAN [facility] CT: 824836123 CPT-4: G81Ybskzdt Reason For Visit No Reason For Visit data Plan of Care Planned Activity Notes Codes Status Date Patient Education: Patient Medication Summary Rgkjrgbfe67/09/2022ppointment: Anna Culver WPtel: [address] [place] [address] [id number]: Chivo Bishop WPtel: [address] [place] [address] [id number]: Chivo Bishop WPtel: [address] [place] [address] [id number]: Mikey Nair WPtel: [facility] [id number]: Chivo Bishop WPtel: [address] [place] [address] [id number]: Chivo Bishop WPtel: [address] [place] [address] [id number]: Chivo Bishop WPtel: [address] [place] [address] USETV111/11/2020ppointment: Chivo Bishop WPtel: [address] [place] [address] USETV110/13/2020ppointment: Chivo Bishop WPtel: [phone] [place] [address] USETV10ppointment: Chivo Bishop WPtel: [phone] [place] [address] [id number]: Anna Culver WPtel: [phone] [place] [address] USETV06/02/2021ppointment: Chivo Bishop WPtel: [phone] [place] [address] USETV05/20/2021ppointment: Anna Culver WPtel: [phone] [place] [address] USETV04/28/2021ppointment: Chivo Bishop WPtel: [address] [place] [address] USETV04/15/2021ppointment: Anna Culver WPtel: [address] [place] [address] [id number]: Anna Culver WPtel: [phone] [place] [address] USETV03/24/2021ppointment: Anna Culver WPtel: [address] [place] [address] USETV06ppointment: Anna Culver WPtel: [phone] [place] [address] [id number]: Chivo Bishop WPtel: [phone] [place] [address] [id number]: Anna Culver WPtel: [phone] [place], [place] [id number] USETV04/ppointment: Anna Culver WPtel: [phone] [place] [address] [id number]: Chivo Bishop WPtel: [phone] [place] [address] USETV11/28/2020ppointment: Anna Culver WPtel: [phone] [place] [address] USETV11/24/2020ppointment: Anna Culver WPtel: [phone] [place] [address] [id number]: Anna Culver WPtel: [address] [place] [address] [id number]: Anna Culver WPtel: [address] [place] [address] USETV110/26/2019Appointment: Anna Culver WPtel: [address] [place] [address] USETV110/19/2019Appointment: Anna Culver WPtel: [address] [place] [address] USETV1Appointment: Anna Culver WPtel: [address] [place] [address] USETV1Appointment: Gianna Birmingham: [facility] 100 [address] WURQET7007/02/2020Appointment: Anna Culver WPtel: [phone] [place] [address] [id number]: Anna Culver WPtel: [phone] [address] [id number]: Anna Culver WPtel: [phone] [place] [address] [id number]: Anna Culver WPtel: [phone] [place] [address] [id number]: Anna Culver WPtel: [phone] [place] [address] [id number]: Anna Culver WPtel: [phone] [place] [address] [id number]: Anna Culver WPtel: [address] [place] [address] [id number]: Anna Culver WPtel: [phone] [place] [address] [id number]: Anna Culver WPtel: [address] [place] [address] [id number]: Anna Culver WPtel: [address] [place] [address] [id number]: Sudha Hernadez WPtel: [address] [facility] [id number]: Sudha Hernadez WPtel: [address] [facility] [id number] [id number]: Charlene Oropeza WPtel: [address] [facility] [id number] [id number]: Enedelia DelgadoAppointment: Charlene Oropeza WPtel: [address] [facility] [id number] [id number]: Rasta Palafox WPtel: [address] [facility] [id number]: Rasta Palafox WPtel: [address] [facility] [id number]: Rasta Palafox WPtel: [address] [facility] [id number] [id number]: Rasta Palafox WPtel: [address] [facility] VmksfaOM40415 [id number]: Pending Gynecology Referral InformationReferral ProcessedReferral: Pending Pulmonology Referral InformationReferralProcessed Referral: Pending Psychiatry Referral InformationReferralInitiatedReferral: Pending Respiratory Services Referral InformationReferralInitiatedReferral: Pending Ophthalmology Referral InformationReferralInitiatedReferral: [facility] WPtel: [address] [place] [address] [id number] USWriter placed a call out to the patient to notify her that it has been recommended that she be seenby 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 Patient agreed to be seen, does not have a provider of choice and no transportationissues. Director Of Creative Services faxed referral and clinical notes to [facility] in [place], [place] near the patient's home. Patient to [...] seen and prefers a provider in the [place] or [place] area. Director Of Creative Services placed a call out to everyone listed in the area and the only location that was able to accept the patient's insurance was [facility] [address] [place] [address] and spoke with Maylin. Maylin asked that the patient's referral, face sheet and visit notes be faxed to . Director Of Creative Services faxed over requested documents. Patient appointment confirmation letter generated and mailed to her home address. Patient to call to schedule an appointment.ProcessedReferral: [facility] WPtel: [address] [place], [place] [id number] USPatient notified that it has been advised that she be seen by Neurology. Patient agreed to be seen and prefers to be seen by a provider in the [place], [place] area. Patient denies any concerns with transportation, and prefers to schedule her own appointment. Director Of Creative Services placed a call out to [facility] and spoke with Neeraj P: who confirmed that their office is able to acceptnew patients and the patient's insurance. After confirming the providers fax number, freelance copywriter faxed over the patient's referral, and [...]
--- OUTSIDE RECORDS SUMMARY | 2022-12-26 20:00 | XMS_ITS | CCD ---
Author Name Darrell Carrion Address [address] [place] [address] Phone Organization [facility] Phone Care Team Providers Care Director Of Enterprise Applications Name Role Phone Anna Culver NP Primary Care Provider Unav ailable Unavailable Chronic Care Management Unavaila ble Summary Purpose DataExchange Insurance Providers Payer name Policy type / Coverage type Covered alliance party ID Effective Begin Date Effective End Date [facility] [id number] Unknown Unknown Family history Mother Diagnosis Age [...] 05/31/2018 Education level Unknown Some High School 10th05/31/20181891MbtmdqvwblZvhjlpaCzjxrhhoiz93/29/2018Tobacco historySNOMED CT: 916277523Yug never smoked or chewed [id number]/31/2018Alcohol historySNOMED CT: 098664765Enfuf drinks [id number]/31/2018Has the patient ever used illegal drugs? UnknownHas never used illegal drugs05/31/2018DNR Order/ Advanced Directive UnknownFull Code05/31/2018 Allergies, Adverse Reactions, Alerts Substance Reaction Codes Entered Date Inactivated Date Status OxyContin itch, RxNorm: 085888 01/13/2021 No Inactive Da te Active *No known food allergies Lcowqgr9409/06/2018No Inactive DateActiveMethylprednisolonehivesRxNorm: 6902 09/06/2018No Inactive DateActive Problems Condition Codes Effective Dates Condition St atus GERD (gastroesophageal reflux disease) I CD-10: K21.9 ICD-9: 530.8112/03/2019ActiveMajor depression, recurrentICD-10: F33.9 ICD-9: 296.3009/ctiveObstructive sleep apnea (adult) (pediatric)ICD-10: G47.33 ICD-9: 327.2309/ActiveType 2 diabetes mellitus with peripheral neuropathy ICD-10: E11.42 ICD-9: 250.6002ActiveAsthmaICD-10: J45.909 ICD-9: 493.9011ActiveHypertensive heart diseaseICD-10: I11.9 ICD-9: 402.9003/ctive(Z00.00-V70.9) Encounter for general adult medical examination without abnormal findingsICD-10: Z00.00 ICD-9: V70.905/09/2022InactiveAbnormal electrocardiogram [ECG] [EKG]ICD-10: R94.31 ICD-9: 794.3108/InactiveAbscessICD-10: L02.91 ICD-9: 682.907/InactiveAnkle sprainICD-10: S93.409A ICD-9: 845.0010/InactiveEncounter for immunizationICD-10: Z23 ICD-9: V04.8111/InactiveEncounter for screening for tobacco useICD-10: Z01.89 ICD-9: V72.8501/InactiveFungal infection of skinICD-10: B36.9 ICD-9: 111.911/InactiveHistory of bladder surgeryICD-10: Z98.890 ICD-9: V45.8904/InactiveInfluenza vaccine refusedICD-10: Z28.21 ICD-9: V64.0609/InactiveOpen wound of right middle fingerICD-10: S61.A ICD-9: 883.001/InactiveAdult BMI 50.0-59.9 kg/sq mICD-10: Z68.43 ICD-9: V85.4308ActiveHypertensionICD-10: I10 ICD-9: 401.903/2ActivePost-traumatic stress disorder, unspecifiedICD-10: F43.10 ICD-9: 309.8112ActiveAdjustment disorder with mixed anxiety and depressed moodICD-10: F43.23 ICD-9: 309.2812ActiveHypothyroidICD-10: E03.9 ICD-9: 244.912ActiveHyperlipidemia, mixedICD-10: E78.2 ICD-9: 272.2032ActiveAllergic rhinitisICD-10: J30.9 ICD-9: 477.902ActiveEdema, unspecifiedICD-10: R60.9 ICD-9: 782.310ActiveVitamin D deficiencyICD-10: E55.9 ICD-9: 268.9032ActiveHypertensive heart disease with heart failureICD-10: I11.0 ICD-9: [...] ICD-9: V79.004/1ResolvedAnorexiaICD-10: R63.0 ICD-9: 783.003/1ResolvedBlisterICD-10: T14.8XXA ICD-9: 919.206/esolvedChronic kidney disease, stage 2 (mild)ICD-10: N18.2 ICD-9: 585.201/esolvedCOVID-19 virus RNA test result positive at limit of detectionICD-10: U07.1 ICD-9: 079.8909/esolvedDiarrheaICD-10: R19.7 ICD-9: 787.9111/esolvedDyspnea, unspecifiedICD-10: R06.00 ICD-9: 786.0902/08/2019ResolvedElevated liver enzymesICD-10: R74.8 ICD-9: 790.504/esolvedEncounter for screening, unspecifiedICD-10: Z13.9 ICD-9: V82.912ResolvedFamily history of seizuresICD-10: Z84.89 ICD-9: V19.807/esolvedHyperlipidemia, unspecifiedICD-10: E78.5 ICD-9: 272.408ResolvedLong term (current) use of non-steroidal anti- inflammatories (NSAID)ICD-10: Z79.1 ICD-9: V58.6409ResolvedPatient Not SeenICD-10: UXZ.01 ICD-9: XZ0.107ResolvedPatient not seenICD-10: UXZ.01 ICD-9: UXZ.0112/esolvedUpper respiratory infectionICD-10: J06.9 ICD-9: 465.908esolvedSyncope and collapseICD-10: R55 ICD-9: 780.ActiveUrinary retention with incomplete bladder emptying ICD-10: R33.9 ICD-9: 788.2104/1ActiveApnea, not elsewhere classifiedICD-10: R06.81 ICD-9: 786.0305InactiveChest pain, unspecifiedICD-10: R07.9 ICD-9: 786.5002/InactiveChronic kidney disease, unspecifiedICD-10: N18.9 ICD-9: 585.909/InactiveEncounter for immunizationICD-10: Z23 ICD-9: V03.907/InactiveEncounter for preprocedural cardiovascular examinationICD-10: Z01.810 ICD-9: V72.8106/InactiveHeadacheICD-10: R51 ICD-9: 784.001/10/2018Inactive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 driver (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ICD-10: Z79.899 [...] incontinenceICD-10: R15.9 ICD-9: 787.6003/ActiveMixed incontinenceICD-10: N39.46 ICD-9: 788.33005/24/2019Active Medications Medication Codes Instructions Start Date Stop Date Status Fill Instructions Ozempic 1 mg/dose (4 mg/3 mL) subcutaneous pen injector RxNorm: 0730317 USE 1 UNIT DOSE SUBCUTANEOUSLY ON TUE OF EACH WEEK 023 2022 Inactive omeprazole 40 mg capsule,delayed release RxNorm: 445528 Take 1 Capsule(s) Oral every night at bedtime 023 2022 Inactive gabapentin 300 mg capsule RxNorm: 831066 Take 1 Capsule(s) Oral three times a day 023 2022 Inactive montelukast 10 mg tablet RxNorm: 991947 Take 1 Tablet(s) Oral every day 023 2022 Inactive omeprazole 20 mg capsule,delayed release RxNorm: 858534 Take 1 Capsule(s) Oral every evening 2022 Inactive Alcohol Prep Pads RxNorm: 054658 USE EACH MORNING 022 2021 Inactive E11.42 clotrimazole 1 % topical cream RxNorm: 309246 Apply 1 Application Topical two times a day as needed apply to affected area(s) twice daily until healed 2021 Inactive Victoza 2-Sebastián 0.6 mg/0.1 mL (18 mg/3 mL) subcutaneous pen injector RxNorm: 514027 Inject 0.6-1.8 Milligram(s) Subcutaneous once a week Inject 0.6mg/0.1ml week one, 1.2mg/0.2ml week two, 1.8/0.3ml weekly thereafter 022 2021 Inactive ibuprofen 800 mg tablet RxNorm: 502173 Take 1 Tablet(s) Oral Q8H as needed for pain take with food No Stop Date Active Ozempic 1 mg/dose (4 mg/3 mL) subcutaneous pen injector RxNorm: 8145161 Take 1 Unit Dose Subcutaneous QWeek Tuesday 022 2021 Inactive lisinopril 2.5 mg tablet RxNorm: 015628 Take 1 Tablet(s) Oral every day 022 2021 Inactive lisinopril 2.5 mg tablet RxNorm: 997931 Take 1 Tablet(s) Oral every day 022 2022 Inactive hydrochlorothiazide 25 mg tablet RxNorm: 086410 Take 1 Tablet(s) Oral every day 022 2021 Inactive Ozempic 1 mg/dose (4 mg/3 mL) subcutaneous pen injector RxNorm: 0341964 Take 1 Unit Dose Subcutaneous QWeek 2021 Inactive famotidine 20 mg tablet RxNorm: 967208 Take 1 Tablet(s) Oral every morning 2021 Inactive levothyroxine 50 mcg tablet RxNorm: 630386 Take 1 Tablet(s) Oral every day 2021 Inactive atorvastatin 20 mg tablet RxNorm: 868159 Take 1 Tablet(s) Oral every night at bedtime 2021 Inactive Cleocin T 1 % lotion RxNorm: 563411 Take 2 Gram(s) Topical every day 022 2021 Inactive Cleocin T 1 % lotion RxNorm: 941700 Take 2 Gram(s) Topical every day 022 2021 Inactive Ozempic 1 mg/dose (4 mg/3 mL) subcutaneous pen injector RxNorm: 6956270 Take 1 Unit Dose Subcutaneous QWeek 022 2021 Inactive Ozempic 0.25 mg or 0.5 mg (2 mg/1.5 mL) subcutaneous pen injector RxNorm: 3070142 INJECT 0.5 MGS SUBCUTANEOUSLY EVERY WEEK 2021 Inactive omeprazole 20 mg capsule,delayed release RxNorm: 340280 Take 1 Capsule(s) Oral every evening 2021 Inactive levothyroxine 50 mcg tablet RxNorm: 621586 Take 1 Tablet(s) Oral every day 022 2021 Inactive atorvastatin 20 mg tablet RxNorm: 769463 Take 1 Tablet(s) Oral every night at bedtime 2021 Inactive This refill negates all other refills of this medication lisinopril 2.5 mg tablet RxNorm: 205837 Take 1 Tablet(s) Oral every day 022 2021 Inactive gabapentin 300 mg capsule RxNorm: 456668 Take 1 Capsule(s) Oral three times a day 2021 Inactive montelukast 10 mg tablet RxNorm: 299234 Take 1 Tablet(s) Oral every day 2021 Inactive Myrbetriq 50 mg tablet,extended release RxNorm: 3550249 1 Tablet(s) Oral every day No Stop Date Active cholecalciferol (vitamin D3) 50 mcg (2,000 unit) tablet RxNorm: 078366 Take 1 Tablet(s) Oral every day 2022 Inactive Ozempic 0.25 mg or 0.5 mg (2 mg/1.5 mL) subcutaneous pen injector RxNorm: 2320479 inject 0.5 milligrams subcutaneously every week 2021 Inactive Ozempic 0.25 mg or 0.5 mg (2 mg/1.5 mL) subcutaneous pen injector RxNorm: 5024972 Take 0.5 Capsule(s) Injection once a week 022 2021 Inactive omeprazole 20 mg capsule,delayed release RxNorm: 957950 Take 1 Capsule(s) Oral every evening 2020 Inactive Ozempic 0.25 mg or 0.5 mg (2 mg/1.5 mL) subcutaneous pen injector RxNorm: 4139403 Take 0.25 Milligram(s) Subcutaneous once a week 2021 Inactive Easy Touch Alcohol Prep Pads RxNorm: 358449 USE DIRECTED EACH MORNING 021 2021 Inactive Probiotic 10 billion cell capsule RxNorm: 8784457 Take 1 Capsule(s) Oral every day 2021 Inactive levothyroxine 50 mcg tablet RxNorm: 953336 Take 1 Tablet(s) Oral every day 021 2020 Inactive Acid Machine Operator (famotidine) 20 mg tablet RxNorm: 529763 Take 1 Tablet(s) Oral every morning 021 2020 Inactive Heartburn Relief (famotidine) 10 mg tablet RxNorm: 181281 Take 1 Tablet(s) Oral QAM 021 2020 Inactive levothyroxine 50 mcg tablet RxNorm: 715461 Take 1 Tablet(s) Oral QD 021 2020 Inactive Singulair 10 mg tablet RxNorm: 212258 TAKE (1) TABLET BY MOUTH DAILY 021 2020 Inactive metformin 1,000 mg tablet RxNorm: 070189 1 Tablet(s) Oral two times a day 2021 Inactive lisinopril 2.5 mg tablet RxNorm: 939193 Take 1 Tablet(s) Oral every day 021 2020 Inactive hydrochlorothiazide 25 mg tablet RxNorm: 966132 Take 1 Tablet(s) Oral every day 021 2020 Inactive ondansetron 4 mg disintegrating tablet RxNorm: 854180 1 Tablet(s) Oral two times a day 021 2020 Inactive Sudafed 12 Hour 120 mg tablet,extended release RxNorm: 3169751 TAKE 1 TABLET BY MOUTH EVERY 12 HOURS NEEDED 2021 Inactive Heartburn Relief (famotidine) 10 mg tablet RxNorm: 786578 Take 1 Tablet(s) Oral every morning 021 2020 Inactive omeprazole 20 mg capsule,delayed release RxNorm: 817797 1 Capsule(s) Oral every evening 021 2020 Inactive sertraline 100 mg tablet RxNorm: 864927 2 Tablet(s) Oral every day 021 2020 Inactive levothyroxine 50 mcg tablet RxNorm: 965669 TAKE (1) TABLET BY MOUTH DAILY 021 2020 Inactive metformin 500 mg tablet RxNorm: 952471 1 Tablet(s) Oral two times a day take with 500mg to equal 1000mg 021 2020 Inactive gabapentin 300 mg capsule RxNorm: 348770 TAKE 1 CAPSULE BY MOUTH THREE TIMES A DAY 021 2020 Inactive lisinopril 2.5 mg tablet RxNorm: 688948 TAKE 1 TABLET BY MOUTH DAILY 021 2020 Inactive gabapentin 300 mg capsule RxNorm: 858096 TAKE 1 CAPSULE BY MOUTH THREE TIMES A DAY 021 2020 Inactive Singulair 10 mg tablet RxNorm: 223540 TAKE (1) TABLET BY MOUTH DAILY 021 2020 Inactive metformin 1,000 mg tablet RxNorm: 940444 1 Tablet(s) Oral two times a day 021 2020 Inactive atorvastatin 40 mg tablet RxNorm: 511690 1 Tablet(s) Oral every day 021 2020 Inactive omeprazole 20 mg capsule,delayed release RxNorm: 917619 1 Capsule(s) Oral every evening 021 2020 Inactive famotidine 10 mg tablet RxNorm: 048301 1 Tablet(s) Oral every morning 021 2020 Inactive Alcohol Prep Pads RxNorm: 993712 USE EACH MORNING 021 2020 Inactive omeprazole 20 mg capsule,delayed release RxNorm: 538427 1 Capsule(s) Oral two times a day 021 2021 Inactive omeprazole 20 mg capsule,delayed release RxNorm: 686142 TAKE 1 CAPSULE BY MOUTH EVERY DAY 021 2021 Inactive Macrobid 100 mg capsule RxNorm: 280848 1 Capsule(s) Oral every 12 hours with food 2020 Inactive omeprazole 20 mg capsule,delayed release RxNorm: 19800201 1 Capsule(s) Oral two times a day 2021 Inactive metformin 1,000 mg tablet RxNorm: 425378 1 Tablet(s) Oral two times a day 020 2020 Inactive start on September 11, 2020 metformin 500 mg tablet RxNorm: 988429 1 Tablet(s) Oral two times a day take with 500mg to equal 1000mg 2019 Inactive gabapentin 300 mg capsule RxNorm: 459222 TAKE 1 CAPSULE BY MOUTH THREE TIMES DAILY 2020 Inactive cetirizine 10 mg tablet RxNorm: 3369174 TAKE (1) TABLET BY MOUTH DAILY 2020 Inactive metformin 500 mg tablet RxNorm: 107145 1 Tablet(s) Oral two times a day 2019 Inactive loperamide 2 mg tablet RxNorm: 418327 1 Tablet(s) Oral as needed take one tablet after each loose stool, maximum of 8 tablets in 24 hours 2021 Inactive Sudafed 12 Hour 120 mg tablet,extended release RxNorm: 7052846 TAKE 1 TABLET BY MOUTH EVERY 12 HOURS NEEDED 020 2019 Inactive hydrochlorothiazide 25 mg tablet RxNorm: 943930 TAKE (1) TABLET BY MOUTH EVERY DAY 020 2019 Inactive omeprazole 20 mg capsule,delayed release RxNorm: 755804 TAKE 1 CAPSULE BY MOUTH EVERY DAY 2020 Inactive metformin 500 mg tablet RxNorm: 353641 1 Tablet(s) Oral every day 2019 Inactive True Metrix Glucose Test Strip RxNorm: 1 Test Strips Miscellaneous two times a day as needed No Stop Date Active metformin 500 mg tablet RxNorm: 670280 1 Tablet(s) Oral every day 020 2019 Inactive diclofenac sodium 75 mg tablet,delayed release RxNorm: 920884 1 Tablet(s) PO BID 2021 Inactive This refill negates all other refills of this medication Sudafed 12 Hour 120 mg tablet,extended release RxNorm: 1392040 TAKE 1 TABLET BY MOUTH EVERY 12 HOURS NEEDED 020 2019 Inactive True Metrix Glucose Test Strip RxNorm: 1 Test Strips Miscellaneous every morning 020 2019 Inactive 100/container True Metrix Glucose Test Strip RxNorm: 1 Test Strips Miscellaneous QAM 020 2019 Inactive 100/container loperamide 2 mg tablet RxNorm: 802905 1 Tablet(s) Oral as needed take one tablet after each loose stool, maximum of 8 tablets in 24 hours 020 2019 Inactive cetirizine 10 mg tablet RxNorm: 6519103 1 Tablet(s) PO daily 2019 Inactive loperamide 2 mg tablet RxNorm: 590189 1 Tablet(s) Oral as needed take one tablet after each loose stool, maximum of 8 tablets in 24 hours 020 2019 Inactive quetiapine 100 mg tablet RxNorm: 178013 1 Tablet(s) Oral every night at bedtime 2019 Inactive levothyroxine 50 mcg tablet RxNorm: 844438 1 Tablet(s) PO daily 020 2020 Inactive gabapentin 300 mg capsule RxNorm: 309481 1 Capsule(s) PO TID 2019 Inactive levothyroxine 50 mcg tablet RxNorm: 152567 1 Tablet(s) PO daily 2019 Inactive lisinopril 2.5 mg tablet RxNorm: 137143 1 Tablet(s) PO daily 020 2020 Inactive gabapentin 300 mg capsule RxNorm: 262731 1 Capsule(s) PO TID 2019 Inactive cetirizine 10 mg tablet RxNorm: 4184606 1 Tablet(s) PO daily 020 2019 Inactive Singulair 10 mg tablet RxNorm: 724689 1 Tablet(s) PO daily 020 2020 Inactive gentamicin 0.3 % eye drops RxNorm: 745066 1 Drop(s) ophthalmic (eye) four times a day 2019 Inactive gentamicin 0.3 % eye drops RxNorm: 238440 1 Drop(s) ophthalmic (eye) four times a day 2019 Inactive gentamicin 0.3 % eye drops RxNorm: 717759 1 Drop(s) ophthalmic (eye) four times a day 2019 Inactive hydrochlorothiazide 25 mg tablet RxNorm: 297443 1 Tablet(s) Oral every day 2019 Inactive Sudafed 12 Hour 120 mg tablet,extended release RxNorm: 0480777 TAKE (1) TABLET BY MOUTH EVERY 12 HOURS NEEDED 2019 Inactive loperamide 2 mg tablet RxNorm: 470206 1 Tablet(s) Oral as needed take one tablet after each loose stool, maximum of 8 tablets in 24 hours 2019 Inactive loperamide 2 mg tablet RxNorm: 583675 1 Tablet(s) Oral as needed take one tablet after each loose stool, maximum of 8 tablets in 24 hours 2019 Inactive atorvastatin 40 mg tablet RxNorm: 379671 1 Tablet(s) Oral every day 2020 Inactive quetiapine 100 mg tablet RxNorm: 758449 1 Tablet(s) Oral every night at bedtime 2019 Inactive sertraline 100 mg tablet RxNorm: 772701 1 Tablet(s) Oral 2019 Inactive omeprazole 20 mg capsule,delayed release RxNorm: 623329 1 Capsule(s) Oral every day 2019 Inactive amoxicillin 250 mg capsule RxNorm: 022386 1 Capsule(s) Oral three times a day 2019 Inactive multivitamin with iron-mineral tablet RxNorm: 1 Tablet(s) Oral every day 2021 Inactive cetirizine 10 mg tablet RxNorm: 8548132 1 Tablet(s) PO daily 2019 Inactive This refill negates all other refills of this medication. Please do not auto refill Singulair 10 mg tablet RxNorm: 776626 1 Tablet(s) PO daily 2019 Inactive This refill negates all other refills of this medication gabapentin 300 mg capsule RxNorm: 305322 1 Capsule(s) PO TID 2019 Inactive lisinopril 2.5 mg tablet RxNorm: 436549 1 Tablet(s) PO daily 2019 Inactive levothyroxine 50 mcg tablet RxNorm: 512376 1 Tablet(s) PO daily 2019 Inactive This refill negates all other refills of this medication hydrochlorothiazide 25 mg tablet RxNorm: 373555 1 Tablet(s) Oral every day 2019 Inactive fenugreek seed extract 500 mg capsule RxNorm: 1 Capsule(s) Oral three times a day 2021 Inactive Alcohol Prep Pads RxNorm: 820429 1 Patch TOP QAM 2020 Inactive loperamide 2 mg tablet RxNorm: 466625 1 Tablet(s) Oral as needed take one [...] 2019 Inactive hydrochlorothiazide 25 mg tablet RxNorm: 239246 1 Tablet(s) Oral every day 2019 Inactive Sudafed 12 Hour 120 mg tablet,extended release RxNorm: 0977767 1 Tablet(s) Oral every 12 hours as needed 019 2018 Inactive omeprazole 20 mg capsule,delayed release RxNorm: 478435 1 Capsule(s) Oral every day 019 2019 Inactive Sudafed 12 Hour 120 mg tablet,extended release RxNorm: 1797051 1 Tablet(s) Oral every 12 hours as needed 019 2018 Inactive pantoprazole 40 mg tablet,delayed release RxNorm: 700157 1 Tablet(s) Oral every day 019 2018 Inactive discontinue any other H2Blkr. and PPI albuterol sulfate 2.5 mg/3 mL (0.083 %) solution for nebulization RxNorm: 372167 1 Vial Inhalation every four hours as needed as needed for dyspnea 2019 Inactive 60/box. This refill negates all other refills of this medication. Please do not fill early. Please do not auto refill. Symbicort 160 mcg-4.5 mcg/actuation HFA aerosol inhaler RxNorm: 1561133 2 Puff(s) INH BID No Stop Date Active Alcohol Prep Pads RxNorm: 823083 1 Patch TOP QAM 019 2019 Inactive Ventolin HFA 90 mcg/actuation aerosol inhaler RxNorm: 560504 2 Puff(s) INH QID 019 2019 Inactive Please do not fill early. Please do not auto refill. This refill negates all other refills of this medication True Metrix Glucose Test Strip RxNorm: 1 Test Strips Miscellaneous QAM 019 2019 Inactive 100/container atorvastatin 40 mg tablet RxNorm: 288535 1 Tablet(s) Oral every day 019 2019 Inactive buspirone 7.5 mg tablet RxNorm: 625554 1 Tablet(s) PO BID 019 2020 Inactive This refill negates all other refills of this medication hydrochlorothiazide 12.5 mg tablet RxNorm: 503250 1 Tablet(s) PO QAM 019 2019 Inactive levmetamfetamine 50 mg nasal inhaler RxNorm: 1 Unit(s) NASAL Q3-4H Do not use more than every 3 hours or 8 times/24hours 019 2021 Inactive Please do not auto refill. This refill negates all other refills of this medication Ventolin HFA 90 mcg/actuation aerosol inhaler RxNorm: 040809 2 Puff(s) INH QID 019 2018 Inactive Please do not fill early. Please do not auto refill. This refill negates all other refills of this medication Singulair 10 mg tablet RxNorm: 720299 1 Tablet(s) PO daily 019 2019 Inactive This refill negates all other refills of this medication cetirizine 10 mg tablet RxNorm: 2970385 1 Tablet(s) PO daily 019 2019 Inactive This refill negates all other refills of this medication. Please do not auto refill levothyroxine 50 mcg tablet RxNorm: 043404 1 Tablet(s) PO daily 019 2019 Inactive This refill negates all other refills of this medication diclofenac sodium 75 mg tablet,delayed release RxNorm: 140024 1 Tablet(s) PO BID 019 2019 Inactive This refill negates all other refills of this medication ranitidine 150 mg tablet RxNorm: 152956 1 Tablet(s) PO BID 019 2018 Inactive This refill negates all other refills of this medication Calcium 600-D3 Plus (mag-zinc) 600 mg calcium-800 unit-50 mg tablet RxNorm: 1 Tablet(s) PO daily take an additonal tablet for itching. 019 2018 Inactive This refill negates all other refills of this medication albuterol sulfate 2.5 mg/3 mL (0.083 %) solution for nebulization RxNorm: 183354 1 Vial INH QID 019 2018 Inactive 60/box. This refill negates all other refills of this medication. Please do not fill early. Please do not auto refill. lisinopril 2.5 mg tablet RxNorm: 841567 1 Tablet(s) PO daily 019 2019 Inactive gabapentin 300 mg capsule RxNorm: 376302 1 Capsule(s) PO TID 019 2019 Inactive atorvastatin 20 mg tablet RxNorm: 367325 1 Tablet(s) PO QHS 2018 Inactive This refill negates all other refills of this medication TRUEplus Lancets 30 gauge RxNorm: 1 Lancets Miscellaneous QAM 2018 Inactive 100/box gabapentin 300 mg capsule RxNorm: 512969 1 Capsule(s) PO TID 019 2018 Inactive Flintstones Complete (iron) 18 mg iron chewable tablet RxNorm: 1 Tablet(s) PO daily 2021 Inactive This refill negates all other refills of this medication gabapentin 300 mg capsule RxNorm: 190279 1 Capsule(s) PO TID as needed 2018 Inactive True Metrix Glucose Test Strip RxNorm: 1 Test Strips Miscellaneous QA 019 2018 Inactive 100/container Alcohol Prep Pads RxNorm: 172180 1 Patch TOP QA 2018 Inactive TRUEplus Lancets 30 gauge RxNorm: 1 Lancets Miscellaneous QA 019 2018 Inactive 100/box lisinopril 2.5 mg tablet RxNorm: 407981 1 Tablet(s) PO daily 019 2018 Inactive ranitidine 150 mg tablet RxNorm: 839975 1 Tablet(s) PO BID 019 2018 Inactive This refill negates all other refills of this medication albuterol sulfate 2.5 mg/3 mL (0.083 %) solution for nebulization RxNorm: 091391 1 Vial INH QID 019 2018 Inactive [...] this medication gabapentin 300 mg capsule RxNorm: 797666 1 Capsule(s) PO TID as needed 019 2018 Inactive atorvastatin 20 mg tablet RxNorm: 659958 1 Tablet(s) PO QHS 019 2018 Inactive This refill negates all other refills of this medication trazodone 50 mg tablet RxNorm: 567593 1 Tablet(s) PO QHS 019 2018 Inactive This refill negates all other refills of this medication Ventolin HFA 90 mcg/actuation aerosol inhaler RxNorm: 675822 2 Puff(s) INH QID 019 2018 Inactive Please do not fill early. Please do not auto refill. This refill negates all other refills of this medication Calcium 600-D3 Plus 600 mg calcium-800 unit-50 mg tablet RxNorm: 1 Tablet(s) PO daily take an additonal tablet for itching. 019 2018 Inactive This refill negates all other refills of this medication Singulair 10 mg tablet RxNorm: 686676 1 Tablet(s) PO daily 019 2018 Inactive This refill negates all other refills of this medication buspirone 7.5 mg tablet RxNorm: 361625 1 Tablet(s) PO BID 019 2018 Inactive This refill negates all other refills of this medication diclofenac sodium 75 mg tablet,delayed release RxNorm: 040558 1 Tablet(s) PO BID 019 2018 Inactive This refill negates all other refills of this medication hydrochlorothiazide 12.5 mg tablet RxNorm: 000521 1 Tablet(s) PO QAM 019 2018 Inactive metoprolol succinate ER 50 mg tablet,extended release 24 hr RxNorm: 235719 1 Tablet(s) PO daily 019 2018 Inactive This refill negates all other refills of this medication levothyroxine 50 mcg tablet RxNorm: 880893 1 Tablet(s) PO daily 019 2018 Inactive This refill negates all other refills of this medication cetirizine 10 mg tablet RxNorm: 0153472 1 Tablet(s) PO daily 019 2018 Inactive This refill negates all other refills of this medication. Please do not auto refill Flintstones Complete (iron) 18 mg iron chewable tablet RxNorm: 1 Tablet(s) PO daily 019 2018 Inactive This refill negates all other refills of this medication buspirone 7.5 mg tablet RxNorm: 957438 1 Tablet(s) PO BID 019 2018 Inactive cetirizine 10 mg tablet RxNorm: 4121298 1 Tablet(s) PO daily 2018 Inactive Guaiasorb DM 10 mg-100 mg/5 mL oral liquid RxNorm: 446472 10 Milliliter(s) PO As needed every 4 hr 2018 Inactive Vicks Vaporub 4.7 %-1.2 %-2.6 % topical ointment RxNorm: 2953707 1 Application TOP TID 2018 Inactive levmetamfetamine 50 mg nasal inhaler RxNorm: 1 Unit(s) NASAL Q3-4H 2017 Inactive sertraline 50 mg tablet RxNorm: 011836 1 Tablet(s) PO daily 018 2018 Inactive Please note dose trazodone 50 mg tablet RxNorm: 214556 1 Tablet(s) PO QHS 018 2018 Inactive sertraline 50 mg tablet RxNorm: 205726 1 Tablet(s) PO daily 018 2017 Inactive amoxicillin 500 mg tablet RxNorm: 157904 1 Tablet(s) PO Q12H 018 2017 Inactive albuterol sulfate 2.5 mg/3 mL (0.083 %) solution for nebulization RxNorm: 009138 1 Vial INH QID 018 2018 Inactive 60/box. Please do not fill early. Please do not auto refill. Prozac 10 mg capsule RxNorm: 947400 1 Capsule(s) PO daily 018 2017 Inactive buspirone 7.5 mg tablet RxNorm: 451977 1 Tablet(s) PO BID 018 2018 Inactive gabapentin 300 mg capsule RxNorm: 619881 1 Capsule(s) PO TID as needed 018 2018 Inactive hydrochlorothiazide 12.5 mg tablet RxNorm: 170393 1 Tablet(s) PO QAM 018 2018 Inactive ranitidine 150 mg tablet RxNorm: 925213 1 Tablet(s) PO BID 018 2018 Inactive Macrobid 100 mg capsule RxNorm: 271601 1 Capsule(s) PO Q12H 018 2017 Inactive Singulair 10 mg tablet RxNorm: 867655 1 Tablet(s) PO daily 018 2018 Inactive Ventolin HFA 90 mcg/actuation aerosol inhaler RxNorm: 6474466 2 Puff(s) INH QID 018 2018 Inactive Singulair 10 mg tablet RxNorm: 568226 1 Tablet(s) PO daily 018 2017 Inactive buspirone 7.5 mg tablet RxNorm: 059988 1 Tablet(s) PO BID 018 2017 Inactive Prozac 10 mg capsule RxNorm: 256579 1 Capsule(s) PO daily 018 2017 Inactive diclofenac sodium 75 mg tablet,delayed release RxNorm: 972500 1 Tablet(s) PO BID 018 2017 Inactive lisinopril 2.5 mg tablet RxNorm: 657716 1 Tablet(s) PO daily 018 2017 Inactive Neilmed Pediatric Sinus Rinse Refill packet RxNorm: 1 Unit Dose NASAL PRN 018 2021 Inactive metoprolol succinate ER 50 mg tablet,extended release 24 hr RxNorm: 242776 1 Tablet(s) PO daily 018 2017 Inactive levothyroxine 50 mcg tablet RxNorm: 282292 1 Tablet(s) PO daily 018 2017 Inactive TRUEplus Lancets 30 gauge RxNorm: 1 Lancets Miscellaneous QAM 018 2017 Inactive 100/box Ventolin HFA 90 mcg/actuation aerosol inhaler RxNorm: 233731 2 Puff(s) INH QID 018 2017 Inactive Aleve 220 mg capsule RxNorm: 1506986 1 Capsule(s) PO BID 018 2018 Inactive ranitidine 150 mg tablet RxNorm: 914343 1 Tablet(s) PO BID 018 2017 Inactive gabapentin 300 mg capsule RxNorm: 485260 1 Capsule(s) PO TID as needed 018 2017 Inactive atorvastatin 20 mg tablet RxNorm: 566929 1 Tablet(s) PO QHS 2017 Inactive True Metrix Glucose Test Strip RxNorm: 1 Test Strips Miscellaneous QAM 018 2017 Inactive 50/container Calcium 600-D3 Plus 600 mg calcium-800 unit-50 mg tablet RxNorm: 1 Tablet(s) PO daily take an additonal tablet for itching. 018 2017 Inactive hydrochlorothiazide 12.5 mg tablet RxNorm: 819457 1 Tablet(s) PO QAM 018 2017 Inactive Flintstones Complete (iron) 18 mg iron chewable tablet RxNorm: 1 Tablet(s) PO daily 018 2017 Inactive True Metrix Glucose Meter RxNorm: miscellaneous 019 2018 Inactive sertraline 50 mg tablet RxNorm: 865197 1 Tablet(s) PO daily 020 2019 Inactive loperamide 2 mg tablet RxNorm: 155664 oral 019 2018 Inactive d-mannose oral powder RxNorm: PO 018 2021 Inactive Symbicort 160 mcg-4.5 mcg/actuation HFA aerosol inhaler RxNorm: 4187133 2 Puff(s) INH BID 019 2018 Inactive Medication Administered No Medication Administered data Procedures Procedure Codes Date Patient General Health Asses semnt Compared to one year ago, how would you rate your health in general?/the same CPT-4: YUXLGkvopgk47/24/2023atient Health QuestionnaireCPT-4: DPHQ11/23/2022 Pain ScreeningCPT-4: PAS2022Tobacco Assessment/ScreeningCPT-4: TCA 2022HypertensionCPT-4: HTN08/17/2022emmes Fany AssessmentCPT-4: DSWA 04/19/2022atient Health QuestionnaireCPT-4: DPHQ04/19/2022nnual Wellness Visit (Subsequent Visit)CPT-4: [id number] Health QuestionnaireCPT-4: DPHQ 10/07/2021Frailty ScreeningCPT-4: SFD05/20/2021HypertensionCPT-4: HTN04/01/2021 Tobacco Assessment/ScreeningCPT-4: TCA03/13/2021atient Health QuestionnaireCPT- 4: DPHQ03/13/2021Mini Mental State ExamCPT-4: DMMA01/29/2021nnual Wellness Visit (Subsequent Visit)CPT-4: F767381dvanced Care PlanningCPT-4: VACP 01/13/2021[facility] [id number] CPT-4: DFRA01/13/2021emmes Fany AssessmentCPT-4: DSWA12/17/2020Urinalysis, dip stickCPT-4: 9401262Patient Health QuestionnaireCPT-4: DPHQ 08/19/2020ElectrocardiogramCPT-4: 8063094Tobacco Assessment/Screening CPT-4: TCA01/01/2020Fall Risk AssessmentSNOMED CT: 947228766 CPT-4: DFRA01/01/2020Functional AssessmentCPT-4: DFA01/01/2020Semmes Fany AssessmentCPT-4: DSWA11/28/2019Patient Health QuestionnaireCPT-4: DPHQ11/28/2019 [place] Fany AssessmentCPT-4: DSWA10/17/2019HypertensionCPT-4: HTN10/17/[address]: 619345080 CPT-4: DFRA09/19/2019Functional AssessmentCPT-4: DFA111/20/2018Urinalysis, dip stickCPT-4: 1318921Tobacco Assessment/ScreeningCPT-4: TCA05/24/2019 Patient Health QuestionnaireCPT-4: DPHQ05/24/2019AHA/REBECCA Classification AssessmentCPT-4: DAHA04/25/2019Controlled Substance ReportCPT-4: CTRSU04/25/2019 Urinalysis, dip stickCPT-4: 996192403/28/2019Urinalysis, dip stickCPT-4: 09344 03/28/20195902Q7T-XwvrqvcplfkbekpZUR-5: 55643YpcpkgdL5Z-HlwrnjazppwfmccAYD-7: 19039 UprhjppC1P-YmkplhrulaprfvpCVH-3: 44235UzntxzlC1R-BbcpffiubteisgyTDW-6: 15095 NqdtvphN1U-NnankbwsqoepnxjZJX-9: 80077YfldyxbH5A-MhpaxrkucdcfsjmZJR-5: 01857 ZzkmndxB0Z-HghwghjzbnhgqttHUR-0: 50346JtoshmeP1R-ZcngtjrzonfpkhsCNN-4: 57941 FjipqkiL4U-TukwrbjyoiisoiiVBL-7: 07364VtzidpfC6P-WoswtkvfaqpiljnHVM-0: 77693 RiiopweO9D-XgheetoxxpsozsaQOQ-8: 01396MzqaxmwQrcmktmjmi [facility] CT: 813755620 CPT-4: D17Codcfgi Reason For Visit No Reason For Visit data Plan of Care Planned Activity Notes Codes Status Date Patient Education: Patient Medication Summary Vziasdxmz87/24/2023ppointment: Anna Culver WPtel: [phone] [place] [address] [id number]: Anna Culver WPtel: [address] [place] [address] [id number]: Anna Culver WPtel: [address] [place] [address] [id number]: Anna Culver WPtel: [address] [place] [address] [id number]: Chivo Bishop WPtel: [address] [place] [address] [id number]: Chivo Bishop WPtel: [address] [place] [address] [id number]: Mikey Nair WPtel: [facility] [id number]: Chivo Bishop WPtel: [address] [place] [address] [id number]: Chivo Bishop WPtel: [address] [place] [address] [id number]: Chivo Bishop WPtel: [address] [place] [address] USETV111/11/2020ppointment: Chivo Bishop WPtel: [phone] [place] [address] USETV110/13/2020ppointment: Chivo Bishop WPtel: [phone] [place] [address] USETV1ppointment: Chivo Bishop WPtel: [address] [place] [address] HLJVRH8906/10/2021ppointment: Anna Culver WPtel: [address] [place] [address] USETV06/02/2021ppointment: Chivo Bishop WPtel: [address] [place] [address] USETV05/20/2021ppointment: Anna Culver WPtel: [address] [place] [address] USETV04/28/2021ppointment: Chivo Bishop WPtel: [address] [place] [address] USETV04/15/2021ppointment: Anna Culver WPtel: [address] [place] [address] [id number]: Anna Culver WPtel: [address] [place] [address] USETV03/24/2021ppointment: Anna Culver WPtel: [address] [place] [address] USETV03/13/2021ppointment: Anna Culver WPtel: [address] [place] [address] [id number]: Chivo Bishop WPtel: [phone] [place] [address] [id number]: Anna Culver WPtel: [phone] [place] [address] USETV04ppointment: Anna Culver WPtel: [phone] [place] [address] [id number]: Chivo Bishop WPtel: [phone] [place] [address] USETV11/28/2020ppointment: Anna Culver WPtel: [address] [place] [address] USETV11/24/2020ppointment: Anna Culver WPtel: [address] [place] [address] [id number]: Anna Culver WPtel: [address] [place] [address] [id number]: Anna Culver WPtel: [address] [place] [address] USETV110/26/2019Appointment: Anna Culver WPtel: [address] [place] [address] USETV110/19/2019Appointment: Anna Culver WPtel: [address] [place] [address] USETV1Appointment: Anna Culver WPtel: [address] [place] [address] USETV1Appointment: Gianna [facility]: [address] [facility] [address] [id number] OUGAHI0007/02/2020Appointment: Anna Culver WPtel: [phone] [place] [address] [id number]: Anna Culver WPtel: [phone] [place] [address] [id number]: Anna Culver WPtel: [phone] [place] [address] [id number]: Anna Culver WPtel: [phone] [place] [address] [id number]: Anna Culver WPtel: [address] [place] [address] [id number]: Anna Culver WPtel: [address] [place] [address] [id number]: Anna Culver WPtel: [address] [place] [address] [id number]: Anna Culver WPtel: [address] [place] [address] [id number]: Anna Culver WPtel: [address] [place] [address] [id number]: Anna Culver WPtel: [phone] [place] [address] WGQ3100711/20/2018Appointment: Sudha Hernadez WPtel: [address] [facility] [id number]: Sudha Hernadez WPtel: [address] [facility] [address] [id number]: Charlene Oropeza WPtel: [address] [facility] [id number]: Danny, DvgnjxR31982/26/2019Appointment: Charlene Oropeza WPtel: [address] [facility] [id number]: Daltonziggysang Rasta WPtel: [address] [facility] [id number]: Jimmysenthilcurt Rasta WPtel: [address] [facility] [id number]: Javy Rasta WPtel: [address] [facility] [id number]: Jimmysenthilcurt Rasta WPtel: [address] [facility] [id number]: Pending Gynecology Referral InformationReferral ProcessedReferral: Pending Pulmonology Referral InformationReferralProcessed Referral: Pending Psychiatry Referral InformationReferralInitiatedReferral: Pending Respiratory Services Referral InformationReferralInitiatedReferral: Pending Ophthalmology Referral InformationReferralInitiatedReferral: [facility] WPtel: [address] [facility] 200 [id number] USWriter placed a call out to the patient to notify her that it has been recommended that she be seenby 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 Patient agreed to be seen, does not have a provider of choice and no transportationissues. Assistant Front End Manager faxed referral and clinical notes to [facility] in [place], [place] near the patient's home. Patient to [...] seen and prefers a provider in the [place] or [place] area. Assistant Front End Manager placed a call out to everyone listed in the area and the only location that was able to accept the patient's insurance was [address] [phone] and spoke with Maylin. Maylin asked that the patient's referral, face sheet and visit notes be faxed to . Assistant Front End Manager faxed over requested documents. Patient appointment confirmation letter generated and mailed to her home address. Patient to call to schedule an appointment.ProcessedReferral: [facility] WPtel: [address] [place], [place] [id number] USPatient notified that it has been advised that she be seen by Neurology. Patient agreed to be seen and prefers to be seen by a provider in the [place], [place] area. Patient denies any concerns with transportation, and prefers to schedule her own appointment. Assistant Front End Manager placed a call out to [facility] and spoke with Neeraj P: who confirmed that their office is able to acceptnew patients and the patient's insurance. After confirming the providers fax number, teletypewriter installer faxed over the patient's referral, and most [...]
--- OUTSIDE RECORDS SUMMARY | 2023-04-11 20:00 | XMS_ITS | CCD ---
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 Front Desk Attendant Name Role Phone Palomo KING, Anna Primary Care Provider Unav ailable Unavailable Chronic Care Management Unavaila ble Summary Purpose DataExchange Insurance Providers Payer name Policy type / Coverage type Covered republican ID Effective Begin Date Effective End Date [facility] [id number] Unknown Unknown Family history Mother Diagnosis Age [...] 05/31/2018 Education level Unknown Some High School 10th05/31/20180442SqglcqebyrIyqgymhJxnrfzhgnr92/29/2018Tobacco historySNOMED CT: 642450340Vct never smoked or chewed [id number]/31/2018Alcohol historySNOMED CT: 247781103Xdzta drinks petmyry7405/31/2018Has the patient ever used illegal drugs? UnknownHas never used illegal drugs05/31/2018DNR Order/ Advanced Directive UnknownFull Code05/31/2018 Allergies, Adverse Reactions, Alerts Substance Reaction Codes Entered Date Inactivated Date Status OxyContin itch, RxNorm: 031996 01/13/2021 No Inactive Da te Active *No known food allergies Qjmooda9109/06/2018No Inactive DateActiveMethylprednisolonehivesRxNorm: 6902 09/06/2018No Inactive DateActive Problems Condition Codes Effective Dates Condition St atus UTI (urinary tract infection) ICD-10: N3 9.0 ICD-9: 599.006ctiveAdult BMI 50.0-59.9 kg/sq mICD-10: Z68.43 ICD-9: V85.4308/ActiveHypertensive heart diseaseICD-10: I11.9 ICD-9: 402.9003/ctiveInsomniaICD-10: G47.00 ICD-9: 780.5204/ctiveMajor depression, recurrentICD-10: F33.9 ICD-9: 296.3009/ctiveType 2 diabetes mellitus with peripheral neuropathy ICD-10: E11.42 ICD-9: 250.6002/ActiveGERD (gastroesophageal reflux disease)ICD-10: K21.9 ICD-9: 530.8112/03/2019ActiveObstructive sleep apnea (adult) (pediatric)ICD-10: G47.33 ICD-9: 327.2309/ActiveAsthmaICD-10: J45.909 ICD-9: 493.9008/08/2018Active(Z00.00-V70.9) Encounter for general adult medical examination without abnormal findingsICD-10: Z00.00 ICD-9: V70.905/09/2022InactiveAbnormal electrocardiogram [ECG] [EKG]ICD-10: R94.31 ICD-9: 794.3108/InactiveAbscessICD-10: L02.91 ICD-9: 682.907/InactiveAnkle sprainICD-10: S93.409A ICD-9: 845.0010/InactiveEncounter for immunizationICD-10: Z23 ICD-9: V04.8111/InactiveEncounter for screening for tobacco useICD-10: Z01.89 ICD-9: V72.8501/InactiveFungal infection of skinICD-10: B36.9 ICD-9: 111.911/InactiveHistory of bladder surgeryICD-10: Z98.890 ICD-9: V45.8904/InactiveInfluenza vaccine refusedICD-10: Z28.21 ICD-9: V64.0609/21/2022InactiveOpen wound of right middle fingerICD-10: S61.202A ICD-9: 883.001/InactiveHypertensionICD-10: I10 ICD-9: 401.903/2ActivePost-traumatic stress disorder, unspecifiedICD-10: F43.10 ICD-9: 309.8112ActiveAdjustment disorder with mixed anxiety and depressed moodICD-10: F43.23 ICD-9: 309.2812ActiveHypothyroidICD-10: E03.9 ICD-9: 244.912/01/2018ActiveHyperlipidemia, mixedICD-10: E78.2 ICD-9: 272.203ctiveAllergic rhinitisICD-10: J30.9 ICD-9: 477.902ActiveEdema, unspecifiedICD-10: R60.9 ICD-9: 782.310ActiveVitamin D deficiencyICD-10: E55.9 ICD-9: 268.903ctiveHypertensive heart disease with heart failureICD-10: I11.0 ICD-9: 402.9107Resolved(Z00.01-V70.0) Encounter for general adult medical examination with abnormal findingsICD-10: Z00.01 ICD-9: V70.004/1Resolved(Z12.11-V76.51) Encounter for screening for malignant neoplasm of colonICD-10: Z12.11 ICD-9: V76.5107Resolved(Z12.31-V76.12) Encounter for screening mammogram for malignant neoplasm of breastICD-10: Z12.31 ICD-9: V76.1207/Resolved(Z12.4-V76.2) Encounter for screening for malignant neoplasm of cervixICD-10: Z12.4 ICD-9: V76.Resolved(Z13.31-V79.0) Encounter for screening for depressionICD-10: Z13.31 ICD-9: V79.0041ResolvedAnorexiaICD-10: R63.0 ICD-9: 783.003/esolvedBlisterICD-10: T14.8XXA ICD-9: 919.206/esolvedChronic kidney disease, stage 2 [...] UXZ.01 ICD-9: UXZ.0112/esolvedUpper respiratory infectionICD-10: J06.9 ICD-9: 465.908/esolvedSyncope and collapseICD-10: R55 ICD-9: 780.ActiveUrinary retention with incomplete bladder emptying ICD-10: R33.9 ICD-9: 788.2104/1ActiveApnea, not elsewhere classifiedICD-10: R06.81 ICD-9: 786.0305/10/2018InactiveChest pain, unspecifiedICD-10: R07.9 ICD-9: 786.5002/InactiveChronic kidney disease, unspecifiedICD-10: N18.9 ICD-9: 585.909/InactiveEncounter for immunizationICD-10: Z23 ICD-9: V03.907/InactiveEncounter for preprocedural cardiovascular examinationICD-10: Z01.810 ICD-9: V72.8106/InactiveHeadacheICD-10: R51 ICD-9: 784.001/10/2018InactiveOther long lines operator (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ICD-10: Z79.899 ICD-9: V58.6907/InactiveType 2 diabetes mellitus without complications ICD-10: E11.9 ICD-9: 250.0001/10/2018InactiveWheezingICD-10: R06.2 ICD-9: 786.0711InactiveAbnormal urine findingICD-10: R82.90 ICD-9: 791.912/ResolvedAbrasion of toeICD-10: S90.416A ICD-9: 917.005/ResolvedPink eyeICD-10: H10.029 ICD-9: 372.0303/ResolvedRight wrist painICD-10: M25.531 ICD-9: 719.4308/09/2020ResolvedSinusitisICD-10: J32.9 ICD-9: 473.902/02/2020ResolvedSuperficial burn of multiple sites of right hand, subsequent encounterICD-10: T23.191D ICD-9: V58.8902/1ResolvedPolyneuropathy, unspecifiedICD-10: G62.9 ICD-9: 356.908/ActiveFecal incontinenceICD-10: R15.9 ICD-9: 787.6003/ActiveMixed incontinenceICD-10: N39.46 ICD-9: 788.3308Active Medications Medication Codes Instructions Start Date Stop Date Status Fill Instructions atorvastatin 20 mg tablet RxNorm: 112886 Take 1 Tablet(s) Oral every night at bedtime 023 2023 Active Macrobid 100 mg capsule RxNorm: 392792 1 Capsule(s) Oral every 12 hours with food 023 2022 Inactive omeprazole 40 mg capsule,delayed release RxNorm: 20021111 Take 1 Capsule(s) Oral every night at bedtime 023 2022 Inactive trazodone 50 mg tablet RxNorm: 967979 Administer 1 Tablet(s) Oral every night at bedtime 023 No Stop Date Active cholecalciferol (vitamin D3) 50 mcg (2,000 unit) tablet RxNorm: 026978 Take 1 Tablet(s) Oral every day 023 2023 Active Ozempic 1 mg/dose (4 mg/3 mL) subcutaneous pen injector RxNorm: 4921608 USE 1 UNIT DOSE SUBCUTANEOUSLY ON TUE OF EACH WEEK 023 2022 Inactive lisinopril 2.5 mg tablet RxNorm: 759028 Take 1 Tablet(s) Oral every day 023 2022 Inactive Msg From [facility]: Dr. Zapata Requested Ozempic 1 mg/dose (4 mg/3 mL) subcutaneous pen injector RxNorm: 4309542 USE 1 UNIT DOSE SUBCUTANEOUSLY ON TUE OF EACH WEEK 023 2022 Inactive omeprazole 40 mg capsule,delayed release RxNorm: 20021111 Take 1 Capsule(s) Oral every night at bedtime 023 2022 Inactive gabapentin 300 mg capsule RxNorm: 409183 Take 1 Capsule(s) Oral three times a day 023 2022 Inactive montelukast 10 mg tablet RxNorm: 608374 Take 1 Tablet(s) Oral every day 023 2022 Inactive omeprazole 20 mg capsule,delayed release RxNorm: 623521 Take 1 Capsule(s) Oral every evening 022 2022 Inactive Alcohol Prep Pads RxNorm: 272798 USE EACH MORNING 2021 Inactive E11.42 clotrimazole 1 % topical cream RxNorm: 507492 Apply 1 Application Topical two times a day as needed apply to affected area(s) twice daily until healed 2021 Inactive Victoza 2-Sebastián 0.6 mg/0.1 mL (18 mg/3 mL) subcutaneous pen injector RxNorm: 194515 Inject 0.6-1.8 Milligram(s) Subcutaneous once a week Inject 0.6mg/0.1ml week one, 1.2mg/0.2ml week two, 1.8/0.3ml weekly thereafter 2021 Inactive ibuprofen 800 mg tablet RxNorm: 370738 Take 1 Tablet(s) Oral Q8H as needed for pain take with food No Stop Date Active Ozempic 1 mg/dose (4 mg/3 mL) subcutaneous pen injector RxNorm: 5630707 Take 1 Unit Dose Subcutaneous QWeek Tuesday 022 2021 Inactive lisinopril 2.5 mg tablet RxNorm: 475280 Take 1 Tablet(s) Oral every day 2021 Inactive lisinopril 2.5 mg tablet RxNorm: 354252 Take 1 Tablet(s) Oral every day 022 2022 Inactive hydrochlorothiazide 25 mg tablet RxNorm: 943320 Take 1 Tablet(s) Oral every day 022 2021 Inactive Ozempic 1 mg/dose (4 mg/3 mL) subcutaneous pen injector RxNorm: 9451940 Take 1 Unit Dose Subcutaneous QWeek 2021 Inactive famotidine 20 mg tablet RxNorm: 625753 Take 1 Tablet(s) Oral every morning 022 2021 Inactive levothyroxine 50 mcg tablet RxNorm: 007462 Take 1 Tablet(s) Oral every day 022 2021 Inactive atorvastatin 20 mg tablet RxNorm: 516818 Take 1 Tablet(s) Oral every night at bedtime 022 2021 Inactive Cleocin T 1 % lotion RxNorm: 266440 Take 2 Gram(s) Topical every day 022 2021 Inactive Cleocin T 1 % lotion RxNorm: 167369 Take 2 Gram(s) Topical every day 022 2021 Inactive Ozempic 1 mg/dose (4 mg/3 mL) subcutaneous pen injector RxNorm: 5539737 Take 1 Unit Dose Subcutaneous QWeek 022 2021 Inactive Ozempic 0.25 mg or 0.5 mg (2 mg/1.5 mL) subcutaneous pen injector RxNorm: 7441215 INJECT 0.5 MGS SUBCUTANEOUSLY EVERY WEEK 022 2021 Inactive omeprazole 20 mg capsule,delayed release RxNorm: 968495 Take 1 Capsule(s) Oral every evening 2021 Inactive levothyroxine 50 mcg tablet RxNorm: 384364 Take 1 Tablet(s) Oral every day 022 2021 Inactive atorvastatin 20 mg tablet RxNorm: 188001 Take 1 Tablet(s) Oral every night at bedtime 2021 Inactive This refill negates all other refills of this medication lisinopril 2.5 mg tablet RxNorm: 760603 Take 1 Tablet(s) Oral every day 2021 Inactive gabapentin 300 mg capsule RxNorm: 567170 Take 1 Capsule(s) Oral three times a day 022 2021 Inactive montelukast 10 mg tablet RxNorm: 314145 Take 1 Tablet(s) Oral every day 022 2021 Inactive Myrbetriq 50 mg tablet,extended release RxNorm: 9595469 1 Tablet(s) Oral every day No Stop Date Active cholecalciferol (vitamin D3) 50 mcg (2,000 unit) tablet RxNorm: 205327 Take 1 Tablet(s) Oral every day 022 2022 Inactive Ozempic 0.25 mg or 0.5 mg (2 mg/1.5 mL) subcutaneous pen injector RxNorm: 8930224 inject 0.5 milligrams subcutaneously every week 2021 Inactive Ozempic 0.25 mg or 0.5 mg (2 mg/1.5 mL) subcutaneous pen injector RxNorm: 6751890 Take 0.5 Capsule(s) Injection once a week 2021 Inactive omeprazole 20 mg capsule,delayed release RxNorm: 776374 Take 1 Capsule(s) Oral every evening 2020 Inactive Ozempic 0.25 mg or 0.5 mg (2 mg/1.5 mL) subcutaneous pen injector RxNorm: 8106342 Take 0.25 Milligram(s) Subcutaneous once a week 2021 Inactive Easy Touch Alcohol Prep Pads RxNorm: 301556 USE DIRECTED EACH MORNING 2021 Inactive Probiotic 10 billion cell capsule RxNorm: 7474411 Take 1 Capsule(s) Oral every day 2021 Inactive levothyroxine 50 mcg tablet RxNorm: 404351 Take 1 Tablet(s) Oral every day 2020 Inactive Acid Fund Raiser (famotidine) 20 mg tablet RxNorm: 516497 Take 1 Tablet(s) Oral every morning 2020 Inactive Heartburn Relief (famotidine) 10 mg tablet RxNorm: 392879 Take 1 Tablet(s) Oral QAM 2020 Inactive levothyroxine 50 mcg tablet RxNorm: 813700 Take 1 Tablet(s) Oral QD 2020 Inactive Singulair 10 mg tablet RxNorm: 363368 TAKE (1) TABLET BY MOUTH DAILY 2020 Inactive metformin 1,000 mg tablet RxNorm: 382321 1 Tablet(s) Oral two times a day 2021 Inactive lisinopril 2.5 mg tablet RxNorm: 153425 Take 1 Tablet(s) Oral every day 021 2020 Inactive hydrochlorothiazide 25 mg tablet RxNorm: 739657 Take 1 Tablet(s) Oral every day 021 2020 Inactive ondansetron 4 mg disintegrating tablet RxNorm: 210387 1 Tablet(s) Oral two times a day 2020 Inactive Sudafed 12 Hour 120 mg tablet,extended release RxNorm: 1345485 TAKE 1 TABLET BY MOUTH EVERY 12 HOURS NEEDED 021 2021 Inactive Heartburn Relief (famotidine) 10 mg tablet RxNorm: 677036 Take 1 Tablet(s) Oral every morning 021 2020 Inactive omeprazole 20 mg capsule,delayed release RxNorm: 407877 1 Capsule(s) Oral every evening 021 2020 Inactive sertraline 100 mg tablet RxNorm: 574458 2 Tablet(s) Oral every day 021 2020 Inactive levothyroxine 50 mcg tablet RxNorm: 618513 TAKE (1) TABLET BY MOUTH DAILY 021 2020 Inactive metformin 500 mg tablet RxNorm: 276003 1 Tablet(s) Oral two times a day take with 500mg to equal 1000mg 021 2020 Inactive gabapentin 300 mg capsule RxNorm: 040975 TAKE 1 CAPSULE BY MOUTH THREE TIMES A DAY 021 2020 Inactive lisinopril 2.5 mg tablet RxNorm: 175713 TAKE 1 TABLET BY MOUTH DAILY 021 2020 Inactive gabapentin 300 mg capsule RxNorm: 314553 TAKE 1 CAPSULE BY MOUTH THREE TIMES A DAY 021 2020 Inactive Singulair 10 mg tablet RxNorm: 870700 TAKE (1) TABLET BY MOUTH DAILY 021 2020 Inactive metformin 1,000 mg tablet RxNorm: 749641 1 Tablet(s) Oral two times a day 021 2020 Inactive atorvastatin 40 mg tablet RxNorm: 004066 1 Tablet(s) Oral every day 2020 Inactive omeprazole 20 mg capsule,delayed release RxNorm: 055905 1 Capsule(s) Oral every evening 2020 Inactive famotidine 10 mg tablet RxNorm: 370501 1 Tablet(s) Oral every morning 021 2020 Inactive Alcohol Prep Pads RxNorm: 949848 USE EACH MORNING 021 2020 Inactive omeprazole 20 mg capsule,delayed release RxNorm: 812522 1 Capsule(s) Oral two times a day 2021 Inactive omeprazole 20 mg capsule,delayed release RxNorm: 697654 TAKE 1 CAPSULE BY MOUTH EVERY DAY 2021 Inactive Macrobid 100 mg capsule RxNorm: 342516 1 Capsule(s) Oral every 12 hours with food 2020 Inactive omeprazole 20 mg capsule,delayed release RxNorm: 495764 1 Capsule(s) Oral two times a day 2021 Inactive metformin 1,000 mg tablet RxNorm: 313804 1 Tablet(s) Oral two times a day 2020 Inactive start on September 11, 2020 metformin 500 mg tablet RxNorm: 206308 1 Tablet(s) Oral two times a day take with 500mg to equal 1000mg 2019 Inactive gabapentin 300 mg capsule RxNorm: 496957 TAKE 1 CAPSULE BY MOUTH THREE TIMES DAILY 2020 Inactive cetirizine 10 mg tablet RxNorm: 6361789 TAKE (1) TABLET BY MOUTH DAILY 2020 Inactive metformin 500 mg tablet RxNorm: 086791 1 Tablet(s) Oral two times a day 2019 Inactive loperamide 2 mg tablet RxNorm: 866114 1 Tablet(s) Oral as needed take one tablet after each loose stool, maximum of 8 tablets in 24 hours 2021 Inactive Sudafed 12 Hour 120 mg tablet,extended release RxNorm: 7837368 TAKE 1 TABLET BY MOUTH EVERY 12 HOURS NEEDED 020 2019 Inactive hydrochlorothiazide 25 mg tablet RxNorm: 002827 TAKE (1) TABLET BY MOUTH EVERY DAY 020 2019 Inactive omeprazole 20 mg capsule,delayed release RxNorm: 125260 TAKE 1 CAPSULE BY MOUTH EVERY DAY 020 2020 Inactive metformin 500 mg tablet RxNorm: 846501 1 Tablet(s) Oral every day 020 2019 Inactive True Metrix Glucose Test Strip RxNorm: 1 Test Strips Miscellaneous two times a day as needed No Stop Date Active metformin 500 mg tablet RxNorm: 913247 1 Tablet(s) Oral every day 020 2019 Inactive diclofenac sodium 75 mg tablet,delayed release RxNorm: 921352 1 Tablet(s) PO BID 2021 Inactive This refill negates all other refills of this medication Sudafed 12 Hour 120 mg tablet,extended release RxNorm: 9899911 TAKE 1 TABLET BY MOUTH EVERY 12 HOURS NEEDED 020 2019 Inactive True Metrix Glucose Test Strip RxNorm: 1 Test Strips Miscellaneous every morning 020 2019 Inactive 100/container True Metrix Glucose Test Strip RxNorm: 1 Test Strips Miscellaneous [facility] 020 2019 Inactive 100/container loperamide 2 mg tablet RxNorm: 995880 1 Tablet(s) Oral as needed take one tablet after each loose stool, maximum of 8 tablets in 24 hours 020 2019 Inactive cetirizine 10 mg tablet RxNorm: 3826709 1 Tablet(s) PO daily 020 2019 Inactive loperamide 2 mg tablet RxNorm: 129889 1 Tablet(s) Oral as needed take one tablet after each loose stool, maximum of 8 tablets in 24 hours 020 2019 Inactive quetiapine 100 mg tablet RxNorm: 923741 1 Tablet(s) Oral every night at bedtime 2019 Inactive levothyroxine 50 mcg tablet RxNorm: 321669 1 Tablet(s) PO daily 020 2020 Inactive gabapentin 300 mg capsule RxNorm: 301547 1 Capsule(s) PO TID 2019 Inactive levothyroxine 50 mcg tablet RxNorm: 206880 1 Tablet(s) PO daily 2019 Inactive lisinopril 2.5 mg tablet RxNorm: 524481 1 Tablet(s) PO daily 2020 Inactive gabapentin 300 mg capsule RxNorm: 239447 1 Capsule(s) PO TID 2019 Inactive cetirizine 10 mg tablet RxNorm: 9291323 1 Tablet(s) PO daily 2019 Inactive Singulair 10 mg tablet RxNorm: 206147 1 Tablet(s) PO daily 2020 Inactive gentamicin 0.3 % eye drops RxNorm: 236534 1 Drop(s) ophthalmic (eye) four times a day 2019 Inactive gentamicin 0.3 % eye drops RxNorm: 916060 1 Drop(s) ophthalmic (eye) four times a day 2019 Inactive gentamicin 0.3 % eye drops RxNorm: 765423 1 Drop(s) ophthalmic (eye) four times a day 2019 Inactive hydrochlorothiazide 25 mg tablet RxNorm: 811522 1 Tablet(s) Oral every day 2019 Inactive Sudafed 12 Hour 120 mg tablet,extended release RxNorm: 5401074 TAKE (1) TABLET BY MOUTH EVERY 12 HOURS NEEDED 2019 Inactive loperamide 2 mg tablet RxNorm: 156267 1 Tablet(s) Oral as needed take one tablet after each loose stool, maximum of 8 tablets in 24 hours 2019 Inactive loperamide 2 mg tablet RxNorm: 210866 1 Tablet(s) Oral as needed take one tablet after each loose stool, maximum of 8 tablets in 24 hours 2019 Inactive atorvastatin 40 mg tablet RxNorm: 405114 1 Tablet(s) Oral every day 2020 Inactive quetiapine 100 mg tablet RxNorm: 988831 1 Tablet(s) Oral every night at bedtime 2019 Inactive sertraline 100 mg tablet RxNorm: 138207 1 Tablet(s) Oral 2019 Inactive omeprazole 20 mg capsule,delayed release RxNorm: 461449 1 Capsule(s) Oral every day 2019 Inactive amoxicillin 250 mg capsule RxNorm: 585066 1 Capsule(s) Oral three times a day 2019 Inactive multivitamin with iron-mineral tablet RxNorm: 1 Tablet(s) Oral every day 2021 Inactive cetirizine 10 mg tablet RxNorm: 2381127 1 Tablet(s) PO daily 2019 Inactive This refill negates all other refills of this medication. Please do not auto refill Singulair 10 mg tablet RxNorm: 409546 1 Tablet(s) PO daily 2019 Inactive This refill negates all other refills of this medication gabapentin 300 mg capsule RxNorm: 576545 1 Capsule(s) PO TID 2019 Inactive lisinopril 2.5 mg tablet RxNorm: 518925 1 Tablet(s) PO daily 2019 Inactive levothyroxine 50 mcg tablet RxNorm: 008863 1 Tablet(s) PO daily 2019 Inactive This refill negates all other refills of this medication hydrochlorothiazide 25 mg tablet RxNorm: 400981 1 Tablet(s) Oral every day 2019 Inactive fenugreek seed extract 500 mg capsule RxNorm: 1 Capsule(s) Oral three times a day 2021 Inactive Alcohol Prep Pads RxNorm: 973887 1 Patch TOP QAM 2020 Inactive loperamide 2 mg tablet RxNorm: 792795 1 Tablet(s) Oral as needed take one [...] 2019 Inactive hydrochlorothiazide 25 mg tablet RxNorm: 722151 1 Tablet(s) Oral every day 2019 Inactive Sudafed 12 Hour 120 mg tablet,extended release RxNorm: 0021773 1 Tablet(s) Oral every 12 hours as needed 2018 Inactive omeprazole 20 mg capsule,delayed release RxNorm: 987741 1 Capsule(s) Oral every day 2019 Inactive Sudafed 12 Hour 120 mg tablet,extended release RxNorm: 3062386 1 Tablet(s) Oral every 12 hours as needed 2018 Inactive pantoprazole 40 mg tablet,delayed release RxNorm: 173795 1 Tablet(s) Oral every day 2018 Inactive discontinue any other H2Blkr. and PPI albuterol sulfate 2.5 mg/3 mL (0.083 %) solution for nebulization RxNorm: 774090 1 Vial Inhalation every four hours as needed as needed for dyspnea 2019 Inactive 60/box. This refill negates all other refills of this medication. Please do not fill early. Please do not auto refill. Symbicort 160 mcg-4.5 mcg/actuation HFA aerosol inhaler RxNorm: 4134698 2 Puff(s) INH BID No Stop Date Active Alcohol Prep Pads RxNorm: 296389 1 Patch TOP QAM 019 2019 Inactive Ventolin HFA 90 mcg/actuation aerosol inhaler RxNorm: 998438 2 Puff(s) INH QID 019 2019 Inactive Please do not fill early. Please do not auto refill. This refill negates all other refills of this medication True Metrix Glucose Test Strip RxNorm: 1 Test Strips Miscellaneous QAM 019 2019 Inactive 100/container atorvastatin 40 mg tablet RxNorm: 296379 1 Tablet(s) Oral every day 019 2019 Inactive buspirone 7.5 mg tablet RxNorm: 834090 1 Tablet(s) PO BID 019 2020 Inactive This refill negates all other refills of this medication hydrochlorothiazide 12.5 mg tablet RxNorm: 101357 1 Tablet(s) PO QAM 019 2019 Inactive levmetamfetamine 50 mg nasal inhaler RxNorm: 1 Unit(s) NASAL Q3-4H Do not use more than every 3 hours or 8 times/24hours 019 2021 Inactive Please do not auto refill. This refill negates all other refills of this medication Ventolin HFA 90 mcg/actuation aerosol inhaler RxNorm: 985570 2 Puff(s) INH QID 019 2018 Inactive Please do not fill early. Please do not auto refill. This refill negates all other refills of this medication Singulair 10 mg tablet RxNorm: 391689 1 Tablet(s) PO daily 019 2019 Inactive This refill negates all other refills of this medication cetirizine 10 mg tablet RxNorm: 3541577 1 Tablet(s) PO daily 019 2019 Inactive This refill negates all other refills of this medication. Please do not auto refill levothyroxine 50 mcg tablet RxNorm: 834771 1 Tablet(s) PO daily 019 2019 Inactive This refill negates all other refills of this medication diclofenac sodium 75 mg tablet,delayed release RxNorm: 148633 1 Tablet(s) PO BID 019 2019 Inactive This refill negates all other refills of this medication ranitidine 150 mg tablet RxNorm: 746037 1 Tablet(s) PO BID 019 2018 Inactive This refill negates all other refills of this medication Calcium 600-D3 Plus (mag-zinc) 600 mg calcium-800 unit-50 mg tablet RxNorm: 1 Tablet(s) PO daily take an additonal tablet for itching. 019 2018 Inactive This refill negates all other refills of this medication albuterol sulfate 2.5 mg/3 mL (0.083 %) solution for nebulization RxNorm: 176252 1 Vial INH QID 019 2018 Inactive 60/box. This refill negates all other refills of this medication. Please do not fill early. Please do not auto refill. lisinopril 2.5 mg tablet RxNorm: 640468 1 Tablet(s) PO daily 019 2019 Inactive gabapentin 300 mg capsule RxNorm: 642516 1 Capsule(s) PO TID 019 2019 Inactive atorvastatin 20 mg tablet RxNorm: 936224 1 Tablet(s) PO QHS 019 2018 Inactive This refill negates all other refills of this medication TRUEplus Lancets 30 gauge RxNorm: 1 Lancets Miscellaneous QAM 019 2018 Inactive 100/box gabapentin 300 mg capsule RxNorm: 029378 1 Capsule(s) PO TID 019 2018 Inactive Flintstones Complete (iron) 18 mg iron chewable tablet RxNorm: 1 Tablet(s) PO daily 2021 Inactive This refill negates all other refills of this medication gabapentin 300 mg capsule RxNorm: 226147 1 Capsule(s) PO TID as needed 019 2018 Inactive True Metrix Glucose Test Strip RxNorm: 1 Test Strips Miscellaneous QAM 019 2018 Inactive 100/container Alcohol Prep Pads RxNorm: 658556 1 Patch TOP QAM 019 2018 Inactive TRUEplus Lancets 30 gauge RxNorm: 1 Lancets Miscellaneous QAM 019 2018 Inactive 100/box lisinopril 2.5 mg tablet RxNorm: 488506 1 Tablet(s) PO daily 019 2018 Inactive ranitidine 150 mg tablet RxNorm: 030455 1 Tablet(s) PO BID 019 2018 Inactive This refill negates all other refills of this medication albuterol sulfate 2.5 mg/3 mL (0.083 %) solution for nebulization RxNorm: 746567 1 Vial INH QID 019 2018 Inactive [...] this medication gabapentin 300 mg capsule RxNorm: 528498 1 Capsule(s) PO TID as needed 019 2018 Inactive atorvastatin 20 mg tablet RxNorm: 270113 1 Tablet(s) PO QHS 019 2018 Inactive This refill negates all other refills of this medication trazodone 50 mg tablet RxNorm: 027733 1 Tablet(s) PO QHS 019 2018 Inactive This refill negates all other refills of this medication Ventolin HFA 90 mcg/actuation aerosol inhaler RxNorm: 344006 2 Puff(s) INH QID 019 2018 Inactive Please do not fill early. Please do not auto refill. This refill negates all other refills of this medication Calcium 600-D3 Plus 600 mg calcium-800 unit-50 mg tablet RxNorm: 1 Tablet(s) PO daily take an additonal tablet for itching. 019 2018 Inactive This refill negates all other refills of this medication Singulair 10 mg tablet RxNorm: 988142 1 Tablet(s) PO daily 019 2018 Inactive This refill negates all other refills of this medication buspirone 7.5 mg tablet RxNorm: 545427 1 Tablet(s) PO BID 019 2018 Inactive This refill negates all other refills of this medication diclofenac sodium 75 mg tablet,delayed release RxNorm: 728606 1 Tablet(s) PO BID 019 2018 Inactive This refill negates all other refills of this medication hydrochlorothiazide 12.5 mg tablet RxNorm: 793140 1 Tablet(s) PO QAM 019 2018 Inactive metoprolol succinate ER 50 mg tablet,extended release 24 hr RxNorm: 720634 1 Tablet(s) PO daily 019 2018 Inactive This refill negates all other refills of this medication levothyroxine 50 mcg tablet RxNorm: 943964 1 Tablet(s) PO daily 019 2018 Inactive This refill negates all other refills of this medication cetirizine 10 mg tablet RxNorm: 1501693 1 Tablet(s) PO daily 019 2018 Inactive This refill negates all other refills of this medication. Please do not auto refill Flintstones Complete (iron) 18 mg iron chewable tablet RxNorm: 1 Tablet(s) PO daily 019 2018 Inactive This refill negates all other refills of this medication buspirone 7.5 mg tablet RxNorm: 576970 1 Tablet(s) PO BID 2018 Inactive cetirizine 10 mg tablet RxNorm: 1316995 1 Tablet(s) PO daily 2018 Inactive Guaiasorb DM 10 mg-100 mg/5 mL oral liquid RxNorm: 552169 10 Milliliter(s) PO As needed every 4 hr 2018 Inactive Vicks Vaporub 4.7 %-1.2 %-2.6 % topical ointment RxNorm: 7772109 1 Application TOP TID 2018 Inactive levmetamfetamine 50 mg nasal inhaler RxNorm: 1 Unit(s) NASAL Q3-4H 2017 Inactive sertraline 50 mg tablet RxNorm: 324726 1 Tablet(s) PO daily 2018 Inactive Please note dose trazodone 50 mg tablet RxNorm: 890210 1 Tablet(s) PO QHS 2018 Inactive sertraline 50 mg tablet RxNorm: 024471 1 Tablet(s) PO daily 2017 Inactive amoxicillin 500 mg tablet RxNorm: 651179 1 Tablet(s) PO Q12H 2017 Inactive albuterol sulfate 2.5 mg/3 mL (0.083 %) solution for nebulization RxNorm: 019418 1 Vial INH QID 2018 Inactive 60/box. Please do not fill early. Please do not auto refill. Prozac 10 mg capsule RxNorm: 983166 1 Capsule(s) PO daily 2017 Inactive buspirone 7.5 mg tablet RxNorm: 823953 1 Tablet(s) PO BID 2018 Inactive gabapentin 300 mg capsule RxNorm: 882543 1 Capsule(s) PO TID as needed 2018 Inactive hydrochlorothiazide 12.5 mg tablet RxNorm: 572241 1 Tablet(s) PO QAM 2018 Inactive ranitidine 150 mg tablet RxNorm: 649118 1 Tablet(s) PO BID 018 2018 Inactive Macrobid 100 mg capsule RxNorm: 613026 1 Capsule(s) PO Q12H 018 2017 Inactive Singulair 10 mg tablet RxNorm: 381007 1 Tablet(s) PO daily 018 2018 Inactive Ventolin HFA 90 mcg/actuation aerosol inhaler RxNorm: 7418653 2 Puff(s) INH QID 018 2018 Inactive Singulair 10 mg tablet RxNorm: 051760 1 Tablet(s) PO daily 018 2017 Inactive buspirone 7.5 mg tablet RxNorm: 290649 1 Tablet(s) PO BID 018 2017 Inactive Prozac 10 mg capsule RxNorm: 696876 1 Capsule(s) PO daily 018 2017 Inactive diclofenac sodium 75 mg tablet,delayed release RxNorm: 777585 1 Tablet(s) PO BID 018 2017 Inactive lisinopril 2.5 mg tablet RxNorm: 239255 1 Tablet(s) PO daily 018 2017 Inactive Neilmed Pediatric Sinus Rinse Refill packet RxNorm: 1 Unit Dose NASAL PRN 018 2021 Inactive metoprolol succinate ER 50 mg tablet,extended release 24 hr RxNorm: 070217 1 Tablet(s) PO daily 018 2017 Inactive levothyroxine 50 mcg tablet RxNorm: 799523 1 Tablet(s) PO daily 018 2017 Inactive TRUEplus Lancets 30 gauge RxNorm: 1 Lancets Miscellaneous QAM 018 2017 Inactive 100/box Ventolin HFA 90 mcg/actuation aerosol inhaler RxNorm: 617559 2 Puff(s) INH QID 018 2017 Inactive Aleve 220 mg capsule RxNorm: 4247153 1 Capsule(s) PO BID 018 2018 Inactive ranitidine 150 mg tablet RxNorm: 554374 1 Tablet(s) PO BID 018 2017 Inactive gabapentin 300 mg capsule RxNorm: 898284 1 Capsule(s) PO TID as needed 018 2017 Inactive atorvastatin 20 mg tablet RxNorm: 072066 1 Tablet(s) PO QHS 018 2017 Inactive True Metrix Glucose Test Strip RxNorm: 1 Test Strips Miscellaneous QAM 018 2017 Inactive 50/container Calcium 600-D3 Plus 600 mg calcium-800 unit-50 mg tablet RxNorm: 1 Tablet(s) PO daily take an additonal tablet for itching. 018 2017 Inactive hydrochlorothiazide 12.5 mg tablet RxNorm: 329258 1 Tablet(s) PO QAM 018 2017 Inactive Flintstones Complete (iron) 18 mg iron chewable tablet RxNorm: 1 Tablet(s) PO daily 018 2017 Inactive True Metrix Glucose Meter RxNorm: miscellaneous 019 2018 Inactive sertraline 50 mg tablet RxNorm: 714494 1 Tablet(s) PO daily 020 2019 Inactive loperamide 2 mg tablet RxNorm: 481843 oral 019 2018 Inactive d-mannose oral powder RxNorm: PO 018 2021 Inactive Symbicort 160 mcg-4.5 mcg/actuation HFA aerosol inhaler RxNorm: 7976695 2 Puff(s) INH BID 019 2018 Inactive Medication Administered No Medication Administered data Procedures Procedure Codes Date Windfall Fany Assessment CPT-4: DSWA 01/02 Fall Risk Assessment CPT-4: DFRA 01/27/2023 Hypertension CPT-4: HTN 01/27/2023 Patient Health Questionnaire CPT-4: DPHQ Pain Screening CPT-4: PAS 2022 Tobacco Assessment/Screening CPT-4: TCA Hypertension CPT-4: HTN 08/17/2022 Windfall Fany Assessment CPT-4: DSWA 04/02 Patient Health [...] CPT-4: VACP Fall Risk Assessment SNOMED CT: 32562798 4 CPT-4: DFRA01/13/2021emmes Fany AssessmentCPT-4: DSWA12/17/2020Urinalysis, dip stickCPT-4: 872491809/24/2020Patient Health QuestionnaireCPT-4: DPHQ 08/19/2020ElectrocardiogramCPT-4: 3325303Tobacco Assessment/Screening CPT-4: TCA01/01/2020Fall Risk AssessmentSNOMED CT: 235224082 CPT-4: DFRA01/01/2020Functional AssessmentCPT-4: DFA01/01/2020Semmes Fany AssessmentCPT-4: DSWA11/28/2019Patient Health QuestionnaireCPT-4: DPHQ11/28/2019 Windfall Fany AssessmentCPT-4: DSWA10/17/2019HypertensionCPT-4: HTN10/17/[address]: 931016661 CPT-4: DFRA09/19/2019Functional AssessmentCPT-4: DFA111/20/2018Urinalysis, dip stickCPT-4: 1811495Tobacco Assessment/ScreeningCPT-4: TCA05/24/2019 Patient Health QuestionnaireCPT-4: DPHQ05/24/2019AHA/REBECCA Classification AssessmentCPT-4: DAHA04/25/2019Controlled Substance ReportCPT-4: CTRSU04/25/2019 Urinalysis, dip stickCPT-4: 207959303/28/2019Urinalysis, dip stickCPT-4: 59854 03/28/20198329Q6F-WgkjvoutwwjonzuWHE-3: 19594XvpfvnwO4G-CnldowfaemarfovNFH-0: 73617 XnzjzthS5L-BuwuyyjabctepjfGNN-6: 94779RtrweumF0Q-NvlfopdupoabukmASS-0: 96376 KckpyasC7L-GynvirohsyrinpqHVT-0: 69213KrmlecnI8U-AhmhdtellnnewliBEP-5: 86311 KegyhvbH1V-EkxvlmlycsldsifZDJ-1: 46938VwsqkhyU9N-FiqqwxjyoxbgmlhGXU-8: 44417 TnwdfweW6Z-EestgynrzopvdjqLQS-2: 64231BynszzfS1Z-XwupbvcbfjkhtnnIYA-8: 18900 UegpzveS9N-TcjsrqixuyjrqypIJF-9: 95281AajcnnxT4K-AiidwoftrqfzxntEPV-1: [address]: 139685639 CPT-4: A51Bamvsnp Reason For Visit No Reason For Visit data Plan of Care Planned Activity Notes Codes Status Date Referral: Pending Gynecology Referral Informatio n Referral ProcessedReferral: Pending Pulmonology Referral InformationReferralProcessed Referral: Pending Psychiatry Referral InformationReferralInitiatedReferral: Pending Respiratory Services Referral InformationReferralInitiatedReferral: Pending Ophthalmology Referral InformationReferralInitiatedReferral: [facility] WPtel: [address] [place] [address] [address] [id number] USWriter placed a call out to the patient to notify her that it has been recommended that she be seenby 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 Patient agreed to be seen, does not have a provider of choice and no transportationissues. [employer] Lead Teacher faxed referral and clinical notes to [facility] in [place], [place] near the patient's home. Patient to [...] seen and prefers a provider in the [place] or [place] area. Mont[employer]ori Lead Teacher placed a call out to everyone listed in the area and the only location that was able to accept the patient's insurance was [address] [address] and spoke with Maylin. Maylin asked that the patient's referral, face sheet and visit notes be faxed to . [employer] Lead Teacher faxed over requested documents. Patient appointment confirmation letter generated and mailed to her home address. Patient to call to schedule an appointment.ProcessedReferral: [facility] WPtel: [address] [place] [address] [address] [facility] [id number] USPatient notified that it has been advised that she be seen by Neurology. Patient agreed to be seen and prefers to be seen by a provider in the [place], [place] area. Patient denies any concerns with transportation, and prefers to schedule her own appointment. [employer]ori Lead Teacher placed a call out to [facility] and spoke with [...]
--- OUTSIDE RECORDS SUMMARY | 2023-04-17 20:00 | XMS_ITS | CCD ---
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 Doorperson Or Luggage Porter Name Role Phone Palomo RECEPTIONIST TELEPHONE OPERATOR, Anna Primary Care Provider Unav ailable Unavailable Chronic Care Management Unavaila ble Summary Purpose DataExchange Insurance Providers Payer name Policy type / Coverage type Covered constitution party ID Effective Begin Date Effective End Date [employer]KI [employer] [facility] [id number] Unknown Unknown Family history Mother Diagnosis Age [...] 05/31/2018 Education level Unknown Some High School 10th05/31/20189508IzhzxxavngEgylwwxUaycjwfqlc00/29/2018Tobacco historySNOMED CT: [id number] never smoked or chewed xegnobt5105/31/2018Alcohol historySNOMED CT: 017556373Hfxyc drinks vsvbfvb4205/31/2018Has the patient ever used illegal drugs? UnknownHas never used illegal drugs05/31/2018DNR Order/ Advanced Directive UnknownFull Code05/31/2018 Allergies, Adverse Reactions, Alerts Substance Reaction Codes Entered Date Inactivated Date Status OxyContin itch, RxNorm: 894124 01/13/2021 No Inactive Da te Active *No known food allergies Stsuoqu9709/06/2018No Inactive DateActiveMethylprednisolonehivesRxNorm: 6902 09/06/2018No Inactive DateActive Problems Condition Codes Effective Dates Condition St atus UTI (urinary tract infection) ICD-10: N3 9.0 ICD-9: 599.006/ctiveAdult BMI 50.0-59.9 kg/sq mICD-10: Z68.43 ICD-9: V85.4308/ActiveHypertensive [...] examinationICD-10: Z01.810 ICD-9: V72.8106/InactiveHeadacheICD-10: R51 ICD-9: 784.001/10/2018InactiveOther intermediate accountant (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ICD-10: Z79.899 ICD-9: V58.6907/InactiveType 2 [...] Fill Instructions levothyroxine 50 mcg tablet RxNorm: 483001 Take 1 Tablet(s) Oral every day 023 2023 Active Msg From [facility]: Approval Requested hydrochlorothiazide 25 mg tablet RxNorm: 478704 Take 1 Tablet(s) Oral every day 023 2023 [facility]: [facility]val Requested atorvastatin 20 mg tablet RxNorm: 200574 Take 1 Tablet(s) Oral every night at bedtime 023 2023 Active Macrobid 100 mg capsule RxNorm: 901274 1 Capsule(s) Oral every 12 hours with food 023 2022 Inactive omeprazole 40 mg capsule,delayed release RxNorm: 350249 Take 1 Capsule(s) Oral every night at bedtime 023 2022 Inactive trazodone 50 mg tablet RxNorm: 111316 Administer 1 Tablet(s) Oral every night at bedtime 023 No Stop Date Active cholecalciferol (vitamin D3) 50 mcg (2,000 unit) tablet RxNorm: 213256 Take 1 Tablet(s) Oral every day 023 2023 Active Ozempic 1 mg/dose (4 mg/3 mL) subcutaneous pen injector RxNorm: 3205075 USE 1 UNIT DOSE SUBCUTANEOUSLY ON TUE OF EACH WEEK 023 2022 Inactive lisinopril 2.5 mg tablet RxNorm: 838815 Take 1 Tablet(s) Oral every day 023 2022 Inactive [facility]: Approval Requested Ozempic 1 mg/dose (4 mg/3 mL) subcutaneous pen injector RxNorm: 7385393 USE 1 UNIT DOSE SUBCUTANEOUSLY ON TUE OF EACH WEEK 023 2022 Inactive omeprazole 40 mg capsule,delayed release RxNorm: 058993 Take 1 Capsule(s) Oral every night at bedtime 023 2022 Inactive gabapentin 300 mg capsule RxNorm: 042508 Take 1 Capsule(s) Oral three times a day 023 2022 Inactive montelukast 10 mg tablet RxNorm: 094286 Take 1 Tablet(s) Oral every day 023 2022 Inactive omeprazole 20 mg capsule,delayed release RxNorm: 086430 Take 1 Capsule(s) Oral every evening 022 2022 Inactive Alcohol Prep Pads RxNorm: 539024 USE EACH MORNING 2021 Inactive E11.42 clotrimazole 1 % topical cream RxNorm: 448696 Apply 1 Application Topical two times a day as needed apply to affected area(s) twice daily until healed 2021 Inactive Victoza 2-Sebastián 0.6 mg/0.1 mL (18 mg/3 mL) subcutaneous pen injector RxNorm: 101137 Inject 0.6-1.8 Milligram(s) Subcutaneous once a week Inject 0.6mg/0.1ml week one, 1.2mg/0.2ml week two, 1.8/0.3ml weekly thereafter 022 2021 Inactive ibuprofen 800 mg tablet RxNorm: 059198 Take 1 Tablet(s) Oral Q8H as needed for pain take with food No Stop Date Active Ozempic 1 mg/dose (4 mg/3 mL) subcutaneous pen injector RxNorm: 7404976 Take 1 Unit Dose Subcutaneous QWeek Tuesday 022 2021 Inactive lisinopril 2.5 mg tablet RxNorm: 813786 Take 1 Tablet(s) Oral every day 022 2021 Inactive lisinopril 2.5 mg tablet RxNorm: 255829 Take 1 Tablet(s) Oral every day 022 2022 Inactive hydrochlorothiazide 25 mg tablet RxNorm: 819336 Take 1 Tablet(s) Oral every day 022 2021 Inactive Ozempic 1 mg/dose (4 mg/3 mL) subcutaneous pen injector RxNorm: 6466682 Take 1 Unit Dose Subcutaneous QWeek 08/01/02 Inactive famotidine 20 mg tablet RxNorm: 659592 Take 1 Tablet(s) Oral every morning 2021 Inactive levothyroxine 50 mcg tablet RxNorm: 598681 Take 1 Tablet(s) Oral every day 022 2021 Inactive atorvastatin 20 mg tablet RxNorm: 322269 Take 1 Tablet(s) Oral every night at bedtime 2021 Inactive Cleocin T 1 % lotion RxNorm: 009793 Take 2 Gram(s) Topical every day 022 2021 Inactive Cleocin T 1 % lotion RxNorm: 762826 Take 2 Gram(s) Topical every day 2021 Inactive Ozempic 1 mg/dose (4 mg/3 mL) subcutaneous pen injector RxNorm: 9556568 Take 1 Unit Dose Subcutaneous QWeek 2021 Inactive Ozempic 0.25 mg or 0.5 mg (2 mg/1.5 mL) subcutaneous pen injector RxNorm: 3142667 INJECT 0.5 MGS SUBCUTANEOUSLY EVERY WEEK 2021 Inactive omeprazole 20 mg capsule,delayed release RxNorm: 563260 Take 1 Capsule(s) Oral every evening 2021 Inactive levothyroxine 50 mcg tablet RxNorm: 133635 Take 1 Tablet(s) Oral every day 2021 Inactive atorvastatin 20 mg tablet RxNorm: 928838 Take 1 Tablet(s) Oral every night at bedtime 2021 Inactive This refill negates all other refills of this medication lisinopril 2.5 mg tablet RxNorm: 447208 Take 1 Tablet(s) Oral every day 2021 Inactive gabapentin 300 mg capsule RxNorm: 151173 Take 1 Capsule(s) Oral three times a day 2021 Inactive montelukast 10 mg tablet RxNorm: 569829 Take 1 Tablet(s) Oral every day 2021 Inactive Myrbetriq 50 mg tablet,extended release RxNorm: 0408574 1 Tablet(s) Oral every day No Stop Date Active cholecalciferol (vitamin D3) 50 mcg (2,000 unit) tablet RxNorm: 156696 Take 1 Tablet(s) Oral every day 2022 Inactive Ozempic 0.25 mg or 0.5 mg (2 mg/1.5 mL) subcutaneous pen injector RxNorm: 0270685 inject 0.5 milligrams subcutaneously every week 022 2021 Inactive Ozempic 0.25 mg or 0.5 mg (2 mg/1.5 mL) subcutaneous pen injector RxNorm: 3785932 Take 0.5 Capsule(s) Injection once a week 2021 Inactive omeprazole 20 mg capsule,delayed release RxNorm: 274842 Take 1 Capsule(s) Oral every evening 2020 Inactive Ozempic 0.25 mg or 0.5 mg (2 mg/1.5 mL) subcutaneous pen injector RxNorm: 0467629 Take 0.25 Milligram(s) Subcutaneous once a week 2021 Inactive Easy Touch Alcohol Prep Pads RxNorm: 526272 USE DIRECTED EACH MORNING 2021 Inactive Probiotic 10 billion cell capsule RxNorm: 1391299 Take 1 Capsule(s) Oral every day 2021 Inactive levothyroxine 50 mcg tablet RxNorm: 925500 Take 1 Tablet(s) Oral every day 021 2020 Inactive Acid Counter Control Operator (famotidine) 20 mg tablet RxNorm: 640397 Take 1 Tablet(s) Oral every morning 2020 Inactive Heartburn Relief (famotidine) 10 mg tablet RxNorm: 969809 Take 1 Tablet(s) Oral QAM 021 2020 Inactive levothyroxine 50 mcg tablet RxNorm: 773499 Take 1 Tablet(s) Oral QD 021 2020 Inactive Singulair 10 mg tablet RxNorm: 248018 TAKE (1) TABLET BY MOUTH DAILY 021 2020 Inactive metformin 1,000 mg tablet RxNorm: 167010 1 Tablet(s) Oral two times a day 2021 Inactive lisinopril 2.5 mg tablet RxNorm: 268708 Take 1 Tablet(s) Oral every day 021 2020 Inactive hydrochlorothiazide 25 mg tablet RxNorm: 759748 Take 1 Tablet(s) Oral every day 021 2020 Inactive ondansetron 4 mg disintegrating tablet RxNorm: 642613 1 Tablet(s) Oral two times a day 021 2020 Inactive Sudafed 12 Hour 120 mg tablet,extended release RxNorm: 7544362 TAKE 1 TABLET BY MOUTH EVERY 12 HOURS NEEDED 2021 Inactive Heartburn Relief (famotidine) 10 mg tablet RxNorm: 542055 Take 1 Tablet(s) Oral every morning 021 2020 Inactive omeprazole 20 mg capsule,delayed release RxNorm: 226572 1 Capsule(s) Oral every evening 021 2020 Inactive sertraline 100 mg tablet RxNorm: 643603 2 Tablet(s) Oral every day 021 2020 Inactive levothyroxine 50 mcg tablet RxNorm: 993080 TAKE (1) TABLET BY MOUTH DAILY 021 2020 Inactive metformin 500 mg tablet RxNorm: 168144 1 Tablet(s) Oral two times a day take with 500mg to equal 1000mg 021 2020 Inactive gabapentin 300 mg capsule RxNorm: 572617 TAKE 1 CAPSULE BY MOUTH THREE TIMES A DAY 021 2020 Inactive lisinopril 2.5 mg tablet RxNorm: 033953 TAKE 1 TABLET BY MOUTH DAILY 021 2020 Inactive gabapentin 300 mg capsule RxNorm: 945321 TAKE 1 CAPSULE BY MOUTH THREE TIMES A DAY 021 2020 Inactive Singulair 10 mg tablet RxNorm: 368226 TAKE (1) TABLET BY MOUTH DAILY 021 2020 Inactive metformin 1,000 mg tablet RxNorm: 164869 1 Tablet(s) Oral two times a day 021 2020 Inactive atorvastatin 40 mg tablet RxNorm: 599010 1 Tablet(s) Oral every day 021 2020 Inactive omeprazole 20 mg capsule,delayed release RxNorm: 811360 1 Capsule(s) Oral every evening 021 2020 Inactive famotidine 10 mg tablet RxNorm: 011017 1 Tablet(s) Oral every morning 021 2020 Inactive Alcohol Prep Pads RxNorm: 785318 USE EACH MORNING 021 2020 Inactive omeprazole 20 mg capsule,delayed release RxNorm: 458884 1 Capsule(s) Oral two times a day 2021 Inactive omeprazole 20 mg capsule,delayed release RxNorm: 849106 TAKE 1 CAPSULE BY MOUTH EVERY DAY 2021 Inactive Macrobid 100 mg capsule RxNorm: 442399 1 Capsule(s) Oral every 12 hours with food 2020 Inactive omeprazole 20 mg capsule,delayed release RxNorm: 409058 1 Capsule(s) Oral two times a day 2021 Inactive metformin 1,000 mg tablet RxNorm: 217748 1 Tablet(s) Oral two times a day 2020 Inactive start on September 11, 2020 metformin 500 mg tablet RxNorm: 374925 1 Tablet(s) Oral two times a day take with 500mg to equal 1000mg 2019 Inactive gabapentin 300 mg capsule RxNorm: 349432 TAKE 1 CAPSULE BY MOUTH THREE TIMES DAILY 2020 Inactive cetirizine 10 mg tablet RxNorm: 8429267 TAKE (1) TABLET BY MOUTH DAILY 2020 Inactive metformin 500 mg tablet RxNorm: 975365 1 Tablet(s) Oral two times a day 020 2019 Inactive loperamide 2 mg tablet RxNorm: 588292 1 Tablet(s) Oral as needed take one tablet after each loose stool, maximum of 8 tablets in 24 hours 2021 Inactive Sudafed 12 Hour 120 mg tablet,extended release RxNorm: 1580644 TAKE 1 TABLET BY MOUTH EVERY 12 HOURS NEEDED 2019 Inactive hydrochlorothiazide 25 mg tablet RxNorm: 722207 TAKE (1) TABLET BY MOUTH EVERY DAY 020 2019 Inactive omeprazole 20 mg capsule,delayed release RxNorm: 350606 TAKE 1 CAPSULE BY MOUTH EVERY DAY 020 2020 Inactive metformin 500 mg tablet RxNorm: 467246 1 Tablet(s) Oral every day 2019 Inactive True Metrix Glucose Test Strip RxNorm: 1 Test Strips Miscellaneous two times a day as needed No Stop Date Active metformin 500 mg tablet RxNorm: 100270 1 Tablet(s) Oral every day 2019 Inactive diclofenac sodium 75 mg tablet,delayed release RxNorm: 501813 1 Tablet(s) PO BID 020 2021 Inactive This refill negates all other refills of this medication Sudafed 12 Hour 120 mg tablet,extended release RxNorm: 1151270 TAKE 1 TABLET BY MOUTH EVERY 12 HOURS NEEDED 020 2019 Inactive True Metrix Glucose Test Strip RxNorm: 1 Test Strips Miscellaneous every morning 020 2019 Inactive 100/container True Metrix Glucose Test Strip RxNorm: 1 Test Strips Miscellaneous QA 020 2019 Inactive 100/container loperamide 2 mg tablet RxNorm: 838116 1 Tablet(s) Oral as needed take one tablet after each loose stool, maximum of 8 tablets in 24 hours 020 2019 Inactive cetirizine 10 mg tablet RxNorm: 6022718 1 Tablet(s) PO daily 2019 Inactive loperamide 2 mg tablet RxNorm: 915709 1 Tablet(s) Oral as needed take one tablet after each loose stool, maximum of 8 tablets in 24 hours 2019 Inactive quetiapine 100 mg tablet RxNorm: 993292 1 Tablet(s) Oral every night at bedtime 2019 Inactive levothyroxine 50 mcg tablet RxNorm: 903157 1 Tablet(s) PO daily 2020 Inactive gabapentin 300 mg capsule RxNorm: 692519 1 Capsule(s) PO TID 2019 Inactive levothyroxine 50 mcg tablet RxNorm: 537759 1 Tablet(s) PO daily 2019 Inactive lisinopril 2.5 mg tablet RxNorm: 043211 1 Tablet(s) PO daily 2020 Inactive gabapentin 300 mg capsule RxNorm: 869659 1 Capsule(s) PO TID 2019 Inactive cetirizine 10 mg tablet RxNorm: 1563290 1 Tablet(s) PO daily 2019 Inactive Singulair 10 mg tablet RxNorm: 637743 1 Tablet(s) PO daily 2020 Inactive gentamicin 0.3 % eye drops RxNorm: 774589 1 Drop(s) ophthalmic (eye) four times a day 2019 Inactive gentamicin 0.3 % eye drops RxNorm: 813917 1 Drop(s) ophthalmic (eye) four times a day 2019 Inactive gentamicin 0.3 % eye drops RxNorm: 929160 1 Drop(s) ophthalmic (eye) four times a day 2019 Inactive hydrochlorothiazide 25 mg tablet RxNorm: 339322 1 Tablet(s) Oral every day 2019 Inactive Sudafed 12 Hour 120 mg tablet,extended release RxNorm: 7574289 TAKE (1) TABLET BY MOUTH EVERY 12 HOURS NEEDED 2019 Inactive loperamide 2 mg tablet RxNorm: 280447 1 Tablet(s) Oral as needed take one tablet after each loose stool, maximum of 8 tablets in 24 hours 020 2019 Inactive loperamide 2 mg tablet RxNorm: 415943 1 Tablet(s) Oral as needed take one tablet after each loose stool, maximum of 8 tablets in 24 hours 020 2019 Inactive atorvastatin 40 mg tablet RxNorm: 019774 1 Tablet(s) Oral every day 2020 Inactive quetiapine 100 mg tablet RxNorm: 205485 1 Tablet(s) Oral every night at bedtime 2019 Inactive sertraline 100 mg tablet RxNorm: 251509 1 Tablet(s) Oral 2019 Inactive omeprazole 20 mg capsule,delayed release RxNorm: 697284 1 Capsule(s) Oral every day 2019 Inactive amoxicillin 250 mg capsule RxNorm: 654820 1 Capsule(s) Oral three times a day 2019 Inactive multivitamin with iron-mineral tablet RxNorm: 1 Tablet(s) Oral every day 2021 Inactive cetirizine 10 mg tablet RxNorm: 1691913 1 Tablet(s) PO daily 2019 Inactive This refill negates all other refills of this medication. Please do not auto refill Singulair 10 mg tablet RxNorm: 250241 1 Tablet(s) PO daily 2019 Inactive This refill negates all other refills of this medication gabapentin 300 mg capsule RxNorm: 406777 1 Capsule(s) PO TID 2019 Inactive lisinopril 2.5 mg tablet RxNorm: 349741 1 Tablet(s) PO daily 2019 Inactive levothyroxine 50 mcg tablet RxNorm: 120371 1 Tablet(s) PO daily 2019 Inactive This refill negates all other refills of this medication hydrochlorothiazide 25 mg tablet RxNorm: 062575 1 Tablet(s) Oral every day 020 2019 Inactive fenugreek seed extract 500 mg capsule RxNorm: 1 Capsule(s) Oral three times a day 2021 Inactive Alcohol Prep Pads RxNorm: 631080 1 Patch TOP QAM 2020 Inactive loperamide 2 mg tablet RxNorm: 098076 1 Tablet(s) Oral as needed take one [...] 2019 Inactive hydrochlorothiazide 25 mg tablet RxNorm: 909130 1 Tablet(s) Oral every day 2019 Inactive Sudafed 12 Hour 120 mg tablet,extended release RxNorm: 4515960 1 Tablet(s) Oral every 12 hours as needed 2018 Inactive omeprazole 20 mg capsule,delayed release RxNorm: 344546 1 Capsule(s) Oral every day 019 2019 Inactive Sudafed 12 Hour 120 mg tablet,extended release RxNorm: 4200629 1 Tablet(s) Oral every 12 hours as needed 019 2018 Inactive pantoprazole 40 mg tablet,delayed release RxNorm: 093455 1 Tablet(s) Oral every day 019 2018 Inactive discontinue any other H2Blkr. and PPI albuterol sulfate 2.5 mg/3 mL (0.083 %) solution for nebulization RxNorm: 813542 1 Vial Inhalation every four hours as needed as needed for dyspnea 2019 Inactive 60/box. This refill negates all other refills of this medication. Please do not fill early. Please do not auto refill. Symbicort 160 mcg-4.5 mcg/actuation HFA aerosol inhaler RxNorm: 8500084 2 Puff(s) INH BID No Stop Date Active Alcohol Prep Pads RxNorm: 116444 1 Patch TOP QAM 019 2019 Inactive Ventolin HFA 90 mcg/actuation aerosol inhaler RxNorm: 980216 2 Puff(s) INH QID 019 2019 Inactive Please do not fill early. Please do not auto refill. This refill negates all other refills of this medication True Metrix Glucose Test Strip RxNorm: 1 Test Strips Miscellaneous QAM 019 2019 Inactive 100/container atorvastatin 40 mg tablet RxNorm: 068191 1 Tablet(s) Oral every day 019 2019 Inactive buspirone 7.5 mg tablet RxNorm: 611598 1 Tablet(s) PO BID 019 2020 Inactive This refill negates all other refills of this medication hydrochlorothiazide 12.5 mg tablet RxNorm: 431478 1 Tablet(s) PO QAM 019 2019 Inactive levmetamfetamine 50 mg nasal inhaler RxNorm: 1 Unit(s) NASAL Q3-4H Do not use more than every 3 hours or 8 times/24hours 019 2021 Inactive Please do not auto refill. This refill negates all other refills of this medication Ventolin HFA 90 mcg/actuation aerosol inhaler RxNorm: 777995 2 Puff(s) INH QID 019 2018 Inactive Please do not fill early. Please do not auto refill. This refill negates all other refills of this medication Singulair 10 mg tablet RxNorm: 368674 1 Tablet(s) PO daily 019 2019 Inactive This refill negates all other refills of this medication cetirizine 10 mg tablet RxNorm: 7872480 1 Tablet(s) PO daily 019 2019 Inactive This refill negates all other refills of this medication. Please do not auto refill levothyroxine 50 mcg tablet RxNorm: 323558 1 Tablet(s) PO daily 019 2019 Inactive This refill negates all other refills of this medication diclofenac sodium 75 mg tablet,delayed release RxNorm: 005745 1 Tablet(s) PO BID 019 2019 Inactive This refill negates all other refills of this medication ranitidine 150 mg tablet RxNorm: 000400 1 Tablet(s) PO BID 019 2018 Inactive This refill negates all other refills of this medication Calcium 600-D3 Plus (mag-zinc) 600 mg calcium-800 unit-50 mg tablet RxNorm: 1 Tablet(s) PO daily take an additonal tablet for itching. 2018 Inactive This refill negates all other refills of this medication albuterol sulfate 2.5 mg/3 mL (0.083 %) solution for nebulization RxNorm: 154040 1 Vial INH QID 2018 Inactive 60/box. This refill negates all other refills of this medication. Please do not fill early. Please do not auto refill. lisinopril 2.5 mg tablet RxNorm: 150040 1 Tablet(s) PO daily 019 2019 Inactive gabapentin 300 mg capsule RxNorm: 063345 1 Capsule(s) PO TID 019 2019 Inactive atorvastatin 20 mg tablet RxNorm: 823765 1 Tablet(s) PO QHS 019 2018 Inactive This refill negates all other refills of this medication TRUEplus Lancets 30 gauge RxNorm: 1 Lancets Miscellaneous QAM 019 2018 Inactive 100/box gabapentin 300 mg capsule RxNorm: 017370 1 Capsule(s) PO TID 019 2018 Inactive [place]ma[place] Complete (iron) 18 mg iron chewable tablet RxNorm: 1 Tablet(s) PO daily 019 2021 Inactive This refill negates all other refills of this medication gabapentin 300 mg capsule RxNorm: 607725 1 Capsule(s) PO TID as needed 2018 Inactive True Metrix Glucose Test Strip RxNorm: 1 Test Strips Miscellaneous QAM 2018 Inactive 100/container Alcohol Prep Pads RxNorm: 422606 1 Patch TOP QAM 2018 Inactive TRUEplus Lancets 30 gauge RxNorm: 1 Lancets Miscellaneous QAM 2018 Inactive 100/box lisinopril 2.5 mg tablet RxNorm: 200977 1 Tablet(s) PO daily 2018 Inactive ranitidine 150 mg tablet RxNorm: 233762 1 Tablet(s) PO BID 2018 Inactive This refill negates all other refills of this medication albuterol sulfate 2.5 mg/3 mL (0.083 %) solution for nebulization RxNorm: 397299 1 Vial INH QID 2018 Inactive 60/box. [...] this medication gabapentin 300 mg capsule RxNorm: 878270 1 Capsule(s) PO TID as needed 019 2018 Inactive atorvastatin 20 mg tablet RxNorm: 155102 1 Tablet(s) PO QHS 019 2018 Inactive This refill negates all other refills of this medication trazodone 50 mg tablet RxNorm: 309155 1 Tablet(s) PO QHS 019 2018 Inactive This refill negates all other refills of this medication Ventolin HFA 90 mcg/actuation aerosol inhaler RxNorm: 282257 2 Puff(s) INH QID 019 2018 Inactive Please do not fill early. Please do not auto refill. This refill negates all other refills of this medication Calcium 600-D3 Plus 600 mg calcium-800 unit-50 mg tablet RxNorm: 1 Tablet(s) PO daily take an additonal tablet for itching. 019 2018 Inactive This refill negates all other refills of this medication Singulair 10 mg tablet RxNorm: 504407 1 Tablet(s) PO daily 019 2018 Inactive This refill negates all other refills of this medication buspirone 7.5 mg tablet RxNorm: 700776 1 Tablet(s) PO BID 019 2018 Inactive This refill negates all other refills of this medication diclofenac sodium 75 mg tablet,delayed release RxNorm: 619662 1 Tablet(s) PO BID 019 2018 Inactive This refill negates all other refills of this medication hydrochlorothiazide 12.5 mg tablet RxNorm: 211323 1 Tablet(s) PO QAM 019 2018 Inactive metoprolol succinate ER 50 mg tablet,extended release 24 hr RxNorm: 620945 1 Tablet(s) PO daily 019 2018 Inactive This refill negates all other refills of this medication levothyroxine 50 mcg tablet RxNorm: 366139 1 Tablet(s) PO daily 019 2018 Inactive This refill negates all other refills of this medication cetirizine 10 mg tablet RxNorm: 3084701 1 Tablet(s) PO daily 01/19/2018 Inactive This refill negates all other refills of this medication. Please do not auto refill Flintstones Complete (iron) 18 mg iron chewable tablet RxNorm: 1 Tablet(s) PO daily 2018 Inactive This refill negates all other refills of this medication buspirone 7.5 mg tablet RxNorm: 443095 1 Tablet(s) PO BID 2018 Inactive cetirizine 10 mg tablet RxNorm: 0925025 1 Tablet(s) PO daily 2018 Inactive Guaiasorb DM 10 mg-100 mg/5 mL oral liquid RxNorm: 375615 10 Milliliter(s) PO As needed every 4 hr 2018 Inactive Vicks Vaporub 4.7 %-1.2 %-2.6 % topical ointment RxNorm: 6100769 1 Application TOP TID 2018 Inactive levmetamfetamine 50 mg nasal inhaler RxNorm: 1 Unit(s) NASAL Q3-4H 2017 Inactive sertraline 50 mg tablet RxNorm: 230512 1 Tablet(s) PO daily 2018 Inactive Please note dose trazodone 50 mg tablet RxNorm: 844421 1 Tablet(s) PO QHS 2018 Inactive sertraline 50 mg tablet RxNorm: 393877 1 Tablet(s) PO daily 2017 Inactive amoxicillin 500 mg tablet RxNorm: 529327 1 Tablet(s) PO Q12H 2017 Inactive albuterol sulfate 2.5 mg/3 mL (0.083 %) solution for nebulization RxNorm: 728638 1 Vial INH QID 2018 Inactive 60/box. Please do not fill early. Please do not auto refill. Prozac 10 mg capsule RxNorm: 162233 1 Capsule(s) PO daily 2017 Inactive buspirone 7.5 mg tablet RxNorm: 183900 1 Tablet(s) PO BID 018 2018 Inactive gabapentin 300 mg capsule RxNorm: 238682 1 Capsule(s) PO TID as needed 018 2018 Inactive hydrochlorothiazide 12.5 mg tablet RxNorm: 441796 1 Tablet(s) PO QAM 018 2018 Inactive ranitidine 150 mg tablet RxNorm: 278218 1 Tablet(s) PO BID 018 2018 Inactive Macrobid 100 mg capsule RxNorm: 191204 1 Capsule(s) PO Q12H 018 2017 Inactive Singulair 10 mg tablet RxNorm: 888858 1 Tablet(s) PO daily 018 2018 Inactive Ventolin HFA 90 mcg/actuation aerosol inhaler RxNorm: 1843825 2 Puff(s) INH QID 018 2018 Inactive Singulair 10 mg tablet RxNorm: 005424 1 Tablet(s) PO daily 018 2017 Inactive buspirone 7.5 mg tablet RxNorm: 525514 1 Tablet(s) PO BID 018 2017 Inactive Prozac 10 mg capsule RxNorm: 224141 1 Capsule(s) PO daily 018 2017 Inactive diclofenac sodium 75 mg tablet,delayed release RxNorm: 621777 1 Tablet(s) PO BID 018 2017 Inactive lisinopril 2.5 mg tablet RxNorm: 526944 1 Tablet(s) PO daily 018 2017 Inactive Neilmed Pediatric Sinus Rinse Refill packet RxNorm: 1 Unit Dose NASAL PRN 018 2021 Inactive metoprolol succinate ER 50 mg tablet,extended release 24 hr RxNorm: 325548 1 Tablet(s) PO daily 018 2017 Inactive levothyroxine 50 mcg tablet RxNorm: 941570 1 Tablet(s) PO daily 018 2017 Inactive TRUEplus Lancets 30 gauge RxNorm: 1 Lancets Miscellaneous QAM 018 2017 Inactive 100/box Ventolin HFA 90 mcg/actuation aerosol inhaler RxNorm: 766505 2 Puff(s) INH QID 018 2017 Inactive Aleve 220 mg capsule RxNorm: 0094824 1 Capsule(s) PO BID 018 2018 Inactive ranitidine 150 mg tablet RxNorm: 989668 1 Tablet(s) PO BID 018 2017 Inactive gabapentin 300 mg capsule RxNorm: 671593 1 Capsule(s) PO TID as needed 018 2017 Inactive atorvastatin 20 mg tablet RxNorm: 411585 1 Tablet(s) PO QHS 018 2017 Inactive True Metrix Glucose Test Strip RxNorm: 1 Test Strips Miscellaneous [facility] 018 2017 Inactive 50/container Calcium 600-D3 Plus 600 mg calcium-800 unit-50 mg tablet RxNorm: 1 Tablet(s) PO daily take an additonal tablet for itching. 018 2017 Inactive hydrochlorothiazide 12.5 mg tablet RxNorm: 548076 1 Tablet(s) PO QAM 018 2017 Inactive Flintstones Complete (iron) 18 mg iron chewable tablet RxNorm: 1 Tablet(s) PO daily 018 2017 Inactive True Metrix Glucose Meter RxNorm: miscellaneous 019 2018 Inactive sertraline 50 mg tablet RxNorm: 725561 1 Tablet(s) PO daily 020 2019 Inactive loperamide 2 mg tablet RxNorm: 957555 oral 019 2018 Inactive d-mannose oral powder RxNorm: PO 018 2021 Inactive Symbicort 160 mcg-4.5 mcg/actuation HFA aerosol inhaler RxNorm: 8047883 2 Puff(s) INH BID 019 2018 Inactive Medication Administered No Medication Administered data Procedures Procedure Codes Date [place] Assessment CPT-4: DSWA 01/02 Fall Risk Assessment CPT-4: DFRA 01/27/2023 Hypertension CPT-4: HTN 01/27/2023 Patient Health Questionnaire CPT-4: DPHQ Pain Screening CPT-4: PAS 2022 Tobacco Assessment/Screening CPT-4: TCA Hypertension CPT-4: HTN 08/17/2022 [place] F[place] Assessment CPT-4: DSWA 04/02 Patient Health [...] Care Planning CPT-4: VACP Fall Risk Assessment [facility] CT: 20915612 4 CPT-4: DFRA01/13/2021em[place] Fany AssessmentCPT-4: DSWA12/17/2020Urinalysis, dip stickCPT-4: 4340586Patient Health QuestionnaireCPT-4: DPHQ 08/19/2020ElectrocardiogramCPT-4: 6561878Tobacco Assessment/Screening CPT-4: TCA01/01/2020Fall Risk AssessmentSNOMED CT: 407829782 CPT-4: DFRA01/01/2020Functional AssessmentCPT-4: DFA01/01/2020[place] Fany AssessmentCPT-4: DSWA11/28/2019Patient Health QuestionnaireCPT-4: DPHQ11/28/2019 [place] F[place] AssessmentCPT-4: DSWA10/17/2019HypertensionCPT-4: HTN10/17/[address]: 433491805 CPT-4: DFRA09/19/2019Functional AssessmentCPT-4: DFA111/20/2018Urinalysis, dip stickCPT-4: 3247000Tobacco Assessment/ScreeningCPT-4: TCA05/24/2019 Patient Health QuestionnaireCPT-4: DPHQ05/24/2019AHA/REBECCA Classification AssessmentCPT-4: DAHA04/25/2019Controlled Substance ReportCPT-4: CTRSU04/25/2019 Urinalysis, dip stickCPT-4: 6231372Urinalysis, dip stickCPT-4: 44110 03/28/20197784N4G-UppcqooktjmpeeoZBT-0: 76862TtkuyypA7I-NwylsbnmpavkkluFCF-1: 24345 WznvqxbB8R-CaedrlghxqfwpnkZET-7: 10414OflqajxB3P-XlbqewsnxaukyjwDPU-4: 92941 VfopqrpD6V-EmxpjrsitkosgjaQLQ-9: 57396HavdwleO1W-RrzeytvgagmmsezTZN-2: 71556 MgmeoreW6U-VnygibhgxlcaoujJOW-4: 15163FkryxanH2C-ZexkdafronxerlbRDA-0: 37070 QtrtowoA7C-EtaxrvbjhkdbkdhDBQ-4: 78166TqgyifaL4E-XvwkcfmsiahlyhaIBA-9: 47271 GraxavpP5Z-EpyfrxbdadzkskqDWP-5: 03989MmashvfZ1Q-SipeobtkdsbzodbDVY-8: [address]: 171638209 CPT-4: B63Xhtodwr Reason For Visit No Reason For Visit data Plan of Care Planned Activity Notes Codes Status Date Referral: Pending Gynecology Referral Informatio n Referral ProcessedReferral: Pending Pulmonology Referral InformationReferralProcessed Referral: Pending Psychiatry Referral InformationReferralInitiatedReferral: Pending Respiratory Services Referral InformationReferralInitiatedReferral: Pending Ophthalmology Referral InformationReferralInitiatedReferral: [facility] WPtel: [address] [place] [address] [id number] USWriter placed a call out to the patient to notify her that it has been recommended that she be seenby 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 Patient agreed to be seen, does not have a provider of choice and no transportationissues. Mechanical Meter Tester faxed referral and clinical notes to [facility] in [place], [place] near the patient's home. Patient to [...] seen and prefers a provider in the [place] or [place] area. Mechanical Meter Tester placed a call out to everyone listed in the area and the only location that was able to accept the patient's insurance was [address] [address] and spoke with Maylin. Maylin asked that the patient's referral, face sheet and visit notes be faxed to . Mechanical Meter Tester faxed over requested documents. Patient appointment confirmation letter generated and mailed to her home address. Patient to call to schedule an appointment.ProcessedReferral: [facility] WPtel: [address] [facility] [address] [place], [place] [id number] USPatient notified that it has been advised that she be seen by Neurology. Patient agreed to be seen and prefers to be seen by a provider in the [place], [place] area. Patient denies any concerns with transportation, and prefers to schedule her own appointment. Mechanical Meter Tester [facility] and spoke with Neeraj Mcfarland: who confirmed that their office is able to acceptnew patients and the patient's insurance. After confirming the providers fax number, leader writer faxed over the patient's referral, and [...]
--- OUTSIDE RECORDS SUMMARY | 2023-06-02 20:00 | XMS_ITS | CCD ---
Author Name Chivo Bishop NP Address [address] [place] [address] Phone Organization [employer] [facility] Phone Care Team Providers Care Bss Solution Architect Name Role Phone Palomo KNIG, Anna Primary Care Provider Unav ailable Unavailable Chronic Care Management Unavaila ble Summary Purpose DataExchange Insurance Providers Payer name Policy type / Coverage type Covered constitution party ID Effective Begin Date Effective End Date SUKI MAYO [id number] Unknown Unknown Family history Mother Diagnosis Age [...] 05/31/2018 Education level Unknown Some High School 10th05/31/20189821DdycecbfhxNypikwgDkyjzzvvyt17/29/2018Tobacco historySNOMED CT: 467110476Wfx never smoked or chewed ielheph9505/31/2018Alcohol historySNOMED CT: 860685355Nazwj drinks [id number]/31/2018Has the patient ever used illegal drugs? UnknownHas never used illegal drugs05/31/2018DNR Order/ Advanced Directive UnknownFull Code05/31/2018 Allergies, Adverse Reactions, Alerts Substance Reaction Codes Entered Date Inactivated Date Status OxyContin itch, RxNorm: 289169 01/13/2021 No Inactive Da te Active *No known food allergies Rzclvkm5309/06/2018No Inactive DateActiveMethylprednisolonehivesRxNorm: 6902 09/06/2018No Inactive DateActive Problems Condition Codes Effective Dates Condition St atus Allergic rhinitis ICD-10: J30.9 ICD-9: 477.903/ctiveHyperlipidemia, mixedICD-10: E78.2 ICD-9: 272.203/ctiveHypertensive heart disease without heart failureICD- 10: I11.9 ICD-9: 402.9003/ctiveMajor depression, recurrentICD-10: F33.9 ICD-9: 296.3009/ctiveNonintractable epileptic seizures due to external causes, without status epilepticusICD-10: G40.509 ICD-9: 345.9008/ctiveType 2 diabetes mellitus with peripheral neuropathy ICD-10: E11.42 ICD-9: 250.6002/ActiveVitamin D deficiencyICD-10: E55.9 ICD-9: 268.903/ctiveUTI (urinary tract infection)ICD-10: N39.0 ICD-9: 599.006/ctiveAdult BMI 50.0-59.9 kg/sq mICD-10: Z68.43 ICD-9: V85.4308/ActiveInsomniaICD-10: G47.00 ICD-9: 780.5204/ctiveGERD (gastroesophageal reflux disease)ICD-10: K21.9 ICD-9: 530.8112/03/2019ActiveObstructive sleep apnea (adult) (pediatric)ICD-10: G47.33 ICD-9: 327.2309/ActiveAsthmaICD-10: J45.909 ICD-9: 493.9011/03/2018Active(Z00.00-V70.9) Encounter for general adult medical examination without abnormal findingsICD-10: Z00.00 ICD-9: V70.905/09/2022InactiveAbnormal electrocardiogram [ECG] [EKG]ICD-10: R94.31 ICD-9: 794.3108/InactiveAbscessICD-10: L02.91 ICD-9: 682.907/InactiveAnkle sprainICD-10: S93.409A ICD-9: 845.0010/InactiveEncounter for immunizationICD-10: Z23 ICD-9: V04.8111/InactiveEncounter for screening for tobacco useICD-10: Z01.89 ICD-9: V72.8501/InactiveFungal infection of skinICD-10: B36.9 ICD-9: 111.911/InactiveHistory of bladder surgeryICD-10: Z98.890 ICD-9: V45.8904/InactiveInfluenza vaccine refusedICD-10: Z28.21 ICD-9: V64.0609/InactiveOpen wound of right middle fingerICD-10: S61.A ICD-9: 883.001/InactiveHypertensionICD-10: I10 ICD-9: 401.903/ctivePost-traumatic stress disorder, unspecifiedICD-10: F43.10 ICD-9: 309.8112/01/2018ActiveAdjustment disorder with mixed anxiety and depressed moodICD-10: F43.23 ICD-9: 309.2812/01/2018ActiveHypothyroidICD-10: E03.9 ICD-9: 244.912ActiveEdema, unspecifiedICD-10: R60.9 ICD-9: 782.310/06/2018ActiveHypertensive heart disease with heart failureICD-10: I11.0 ICD-9: 402.9107/Resolved(Z00.01-V70.0) Encounter for general adult medical examination with abnormal findingsICD-10: Z00.01 ICD-9: V70.004/esolved(Z12.11-V76.51) Encounter for screening for malignant neoplasm of [...] 079.8909/esolvedDiarrheaICD-10: R19.7 ICD-9: 787.9111/esolvedDyspnea, unspecifiedICD-10: R06.00 ICD-9: 786.0905/06/2019ResolvedElevated liver enzymesICD-10: R74.8 ICD-9: 790.504/esolvedEncounter for screening, unspecifiedICD-10: Z13.9 ICD-9: V82.9111/06/2017ResolvedFamily history of seizuresICD-10: Z84.89 ICD-9: V19.807/esolvedHyperlipidemia, unspecifiedICD-10: E78.5 ICD-9: 272.408/ResolvedLong term (current) use of non-steroidal anti- inflammatories (NSAID)ICD-10: Z79.1 ICD-9: V58.6409ResolvedPatient Not SeenICD-10: UXZ.01 ICD-9: XZ0.107ResolvedPatient not seenICD-10: UXZ.01 ICD-9: UXZ.01121ResolvedUpper respiratory infectionICD-10: J06.9 ICD-9: 465.908/1ResolvedSyncope and collapseICD-10: R55 ICD-9: 780.203ActiveUrinary retention with incomplete bladder emptying ICD-10: R33.9 ICD-9: 788.2101ActiveApnea, not elsewhere classifiedICD-10: R06.81 ICD-9: 786.0305/10/2018InactiveChest pain, unspecifiedICD-10: R07.9 ICD-9: 786.5002/InactiveChronic kidney disease, unspecifiedICD-10: N18.9 ICD-9: 585.909/InactiveEncounter for immunizationICD-10: Z23 ICD-9: V03.907/InactiveEncounter for preprocedural cardiovascular examinationICD-10: Z01.810 ICD-9: V72.8106/InactiveHeadacheICD-10: R51 ICD-9: 784.001/10/2018InactiveOther snf (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ICD-10: Z79.899 ICD-9: V58.6907/InactiveType 2 diabetes mellitus without complications ICD-10: E11.9 ICD-9: 250.0001/10/2018InactiveWheezingICD-10: R06.2 ICD-9: 786.0711/03/2018InactiveAbnormal urine findingICD-10: R82.90 ICD-9: 791.912/ResolvedAbrasion of toeICD-10: S90.416A ICD-9: 917.005/ResolvedPink eyeICD-10: H10.029 ICD-9: 372.0303/ResolvedRight wrist painICD-10: M25.531 ICD-9: 719.4308/09/2020ResolvedSinusitisICD-10: J32.9 ICD-9: 473.902/02/2020ResolvedSuperficial burn of multiple sites of right hand, subsequent encounterICD-10: T23.191D ICD-9: V58.8902/26/2021ResolvedPolyneuropathy, unspecifiedICD-10: G62.9 ICD-9: 356.908ActiveFecal incontinenceICD-10: R15.9 ICD-9: 787.6003ActiveMixed incontinenceICD-10: N39.46 ICD-9: 788.3308Active Medications Medication Codes Instructions Start Date Stop Date Status Fill Instructions cetirizine 10 mg tablet RxNorm: 1963899 TAKE (1) TABLET BY MOUTH DAILY 023 2023 Inactive amoxicillin 500 mg tablet RxNorm: 929003 Take 1 Tablet(s) Oral two times a day 023 2022 Inactive omeprazole 40 mg capsule,delayed release RxNorm: 331014 Take 1 Capsule(s) Oral at bed time 023 2022 Inactive Easy Touch Alcohol Prep Pads RxNorm: 360400 USE EACH MORNING 023 2024 Active montelukast 10 mg tablet RxNorm: 979533 Take 1 Tablet(s) Oral every day 023 2022 Inactive gabapentin 300 mg capsule RxNorm: 593713 Take 1 Capsule(s) Oral three times a day 023 2022 Inactive metformin ER 500 mg 24 hr tablet,extended release RxNorm: 7341903 Take 1 Tablet(s) Oral every day with the evening meal 023 2022 Inactive famotidine 20 mg tablet RxNorm: 985742 Take 1 Tablet(s) Oral every morning 023 2022 Inactive levothyroxine 50 mcg tablet RxNorm: 230724 Take 1 Tablet(s) Oral every day 023 2023 [facility] Request[facility] hydrochlorothiazide 25 mg tablet RxNorm: 191363 Take 1 Tablet(s) Oral every day 023 2023 Active Msg From [facility]: Approval Requested atorvastatin 20 mg tablet RxNorm: 743391 Take 1 Tablet(s) Oral every night at bedtime 023 2023 Active Macrobid 100 mg capsule RxNorm: 836178 1 Capsule(s) Oral every 12 hours with food 023 2022 Inactive omeprazole 40 mg capsule,delayed release RxNorm: 20021111 Take 1 Capsule(s) Oral every night at bedtime 023 2022 Inactive trazodone 50 mg tablet RxNorm: 753011 Administer 1 Tablet(s) Oral every night at bedtime 023 No Stop Date Active cholecalciferol (vitamin D3) 50 mcg (2,000 unit) tablet RxNorm: 083980 Take 1 Tablet(s) Oral every day 023 2023 Active Ozempic 1 mg/dose (4 mg/3 mL) subcutaneous pen injector RxNorm: 1435476 USE 1 UNIT DOSE SUBCUTANEOUSLY ON TUE OF EACH WEEK 023 2022 Inactive lisinopril 2.5 mg tablet RxNorm: 209108 Take 1 Tablet(s) Oral every day 023 2022 Inactive Msg From [facility]: Dr. Zapata Requested Ozempic 1 mg/dose (4 mg/3 mL) subcutaneous pen injector RxNorm: 4756674 USE 1 UNIT DOSE SUBCUTANEOUSLY ON TUE OF EACH WEEK 023 2022 Inactive omeprazole 40 mg capsule,delayed release RxNorm: 20021111 Take 1 Capsule(s) Oral every night at bedtime 023 2022 Inactive gabapentin 300 mg capsule RxNorm: 947345 Take 1 Capsule(s) Oral three times a day 023 2022 Inactive montelukast 10 mg tablet RxNorm: 031724 Take 1 Tablet(s) Oral every day 023 2022 Inactive omeprazole 20 mg capsule,delayed release RxNorm: 960148 Take 1 Capsule(s) Oral every evening 022 2022 Inactive Alcohol Prep Pads RxNorm: 985312 USE EACH MORNING 022 2021 Inactive E11.42 clotrimazole 1 % topical cream RxNorm: 585671 Apply 1 Application Topical two times a day as needed apply to affected area(s) twice daily until healed 2021 Inactive Victoza 2-Sebastáin 0.6 mg/0.1 mL (18 mg/3 mL) subcutaneous pen injector RxNorm: 467110 Inject 0.6-1.8 Milligram(s) Subcutaneous once a week Inject 0.6mg/0.1ml week one, 1.2mg/0.2ml week two, 1.8/0.3ml weekly thereafter 2021 Inactive ibuprofen 800 mg tablet RxNorm: 651934 Take 1 Tablet(s) Oral Q8H as needed for pain take with food No Stop Date Active Ozempic 1 mg/dose (4 mg/3 mL) subcutaneous pen injector RxNorm: 9686576 Take 1 Unit Dose Subcutaneous QWeek Tuesday2021 Inactive lisinopril 2.5 mg tablet RxNorm: 578486 Take 1 Tablet(s) Oral every day 2021 Inactive lisinopril 2.5 mg tablet RxNorm: 469557 Take 1 Tablet(s) Oral every day 022 2022 Inactive hydrochlorothiazide 25 mg tablet RxNorm: 247580 Take 1 Tablet(s) Oral every day 022 2021 Inactive Ozempic 1 mg/dose (4 mg/3 mL) subcutaneous pen injector RxNorm: 7612699 Take 1 Unit Dose Subcutaneous QWeek 022 2021 Inactive famotidine 20 mg tablet RxNorm: 934496 Take 1 Tablet(s) Oral every morning 2021 Inactive levothyroxine 50 mcg tablet RxNorm: 498706 Take 1 Tablet(s) Oral every day 022 2021 Inactive atorvastatin 20 mg tablet RxNorm: 286844 Take 1 Tablet(s) Oral every night at bedtime 022 2021 Inactive Cleocin T 1 % lotion RxNorm: 982576 Take 2 Gram(s) Topical every day 022 2021 Inactive Cleocin T 1 % lotion RxNorm: 725722 Take 2 Gram(s) Topical every day 022 2021 Inactive Ozempic 1 mg/dose (4 mg/3 mL) subcutaneous pen injector RxNorm: 1220370 Take 1 Unit Dose Subcutaneous QWeek 022 2021 Inactive Ozempic 0.25 mg or 0.5 mg (2 mg/1.5 mL) subcutaneous pen injector RxNorm: 7136186 INJECT 0.5 MGS SUBCUTANEOUSLY EVERY WEEK 022 2021 Inactive omeprazole 20 mg capsule,delayed release RxNorm: 643982 Take 1 Capsule(s) Oral every evening 022 2021 Inactive levothyroxine 50 mcg tablet RxNorm: 399219 Take 1 Tablet(s) Oral every day 022 2021 Inactive atorvastatin 20 mg tablet RxNorm: 006563 Take 1 Tablet(s) Oral every night at bedtime 2021 Inactive This refill negates all other refills of this medication lisinopril 2.5 mg tablet RxNorm: 166850 Take 1 Tablet(s) Oral every day 022 2021 Inactive gabapentin 300 mg capsule RxNorm: 963123 Take 1 Capsule(s) Oral three times a day 022 2021 Inactive montelukast 10 mg tablet RxNorm: 825046 Take 1 Tablet(s) Oral every day 022 2021 Inactive Myrbetriq 50 mg tablet,extended release RxNorm: 8571846 1 Tablet(s) Oral every day No Stop Date Active cholecalciferol (vitamin D3) 50 mcg (2,000 unit) tablet RxNorm: 507860 Take 1 Tablet(s) Oral every day 022 2022 Inactive Ozempic 0.25 mg or 0.5 mg (2 mg/1.5 mL) subcutaneous pen injector RxNorm: 1237850 inject 0.5 milligrams subcutaneously every week 022 2021 Inactive Ozempic 0.25 mg or 0.5 mg (2 mg/1.5 mL) subcutaneous pen injector RxNorm: 9422980 Take 0.5 Capsule(s) Injection once a week 022 2021 Inactive omeprazole 20 mg capsule,delayed release RxNorm: 253841 Take 1 Capsule(s) Oral every evening 2020 Inactive Ozempic 0.25 mg or 0.5 mg (2 mg/1.5 mL) subcutaneous pen injector RxNorm: 9584054 Take 0.25 Milligram(s) Subcutaneous once a week 2021 Inactive Easy Touch Alcohol Prep Pads RxNorm: 836508 USE DIRECTED EACH MORNING 2021 Inactive Probiotic 10 billion cell capsule RxNorm: 9220036 Take 1 Capsule(s) Oral every day 2021 Inactive levothyroxine 50 mcg tablet RxNorm: 173334 Take 1 Tablet(s) Oral every day 2020 Inactive Acid Electrical Manufacturing Engineer (famotidine) 20 mg tablet RxNorm: 250536 Take 1 Tablet(s) Oral every morning 2020 Inactive Heartburn Relief (famotidine) 10 mg tablet RxNorm: 157919 Take 1 Tablet(s) Oral QAM 2020 Inactive levothyroxine 50 mcg tablet RxNorm: 247012 Take 1 Tablet(s) Oral QD 2020 Inactive Singulair 10 mg tablet RxNorm: 468235 TAKE (1) TABLET BY MOUTH DAILY 2020 Inactive metformin 1,000 mg tablet RxNorm: 791210 1 Tablet(s) Oral two times a day 2021 Inactive lisinopril 2.5 mg tablet RxNorm: 311020 Take 1 Tablet(s) Oral every day 2020 Inactive hydrochlorothiazide 25 mg tablet RxNorm: 038361 Take 1 Tablet(s) Oral every day 021 2020 Inactive ondansetron 4 mg disintegrating tablet RxNorm: 083835 1 Tablet(s) Oral two times a day 021 2020 Inactive Sudafed 12 Hour 120 mg tablet,extended release RxNorm: 3212213 TAKE 1 TABLET BY MOUTH EVERY 12 HOURS NEEDED 2021 Inactive Heartburn Relief (famotidine) 10 mg tablet RxNorm: 573913 Take 1 Tablet(s) Oral every morning 021 2020 Inactive omeprazole 20 mg capsule,delayed release RxNorm: 057010 1 Capsule(s) Oral every evening 021 2020 Inactive sertraline 100 mg tablet RxNorm: 654904 2 Tablet(s) Oral every day 021 2020 Inactive levothyroxine 50 mcg tablet RxNorm: 607887 TAKE (1) TABLET BY MOUTH DAILY 021 2020 Inactive metformin 500 mg tablet RxNorm: 017391 1 Tablet(s) Oral two times a day take with 500mg to equal 1000mg 021 2020 Inactive gabapentin 300 mg capsule RxNorm: 322527 TAKE 1 CAPSULE BY MOUTH THREE TIMES A DAY 021 2020 Inactive lisinopril 2.5 mg tablet RxNorm: 378061 TAKE 1 TABLET BY MOUTH DAILY 021 2020 Inactive gabapentin 300 mg capsule RxNorm: 493667 TAKE 1 CAPSULE BY MOUTH THREE TIMES A DAY 021 2020 Inactive Singulair 10 mg tablet RxNorm: 186403 TAKE (1) TABLET BY MOUTH DAILY 021 2020 Inactive metformin 1,000 mg tablet RxNorm: 640212 1 Tablet(s) Oral two times a day 021 2020 Inactive atorvastatin 40 mg tablet RxNorm: 845992 1 Tablet(s) Oral every day 021 2020 Inactive omeprazole 20 mg capsule,delayed release RxNorm: 717046 1 Capsule(s) Oral every evening 2020 Inactive famotidine 10 mg tablet RxNorm: 947272 1 Tablet(s) Oral every morning 2020 Inactive Alcohol Prep Pads RxNorm: 797741 USE EACH MORNING 2020 Inactive omeprazole 20 mg capsule,delayed release RxNorm: 798912 1 Capsule(s) Oral two times a day 2021 Inactive omeprazole 20 mg capsule,delayed release RxNorm: 217916 TAKE 1 CAPSULE BY MOUTH EVERY DAY 2021 Inactive Macrobid 100 mg capsule RxNorm: 510103 1 Capsule(s) Oral every 12 hours with food 2020 Inactive omeprazole 20 mg capsule,delayed release RxNorm: 489074 1 Capsule(s) Oral two times a day 2021 Inactive metformin 1,000 mg tablet RxNorm: 340350 1 Tablet(s) Oral two times a day 2020 Inactive start on September 11, 2020 metformin 500 mg tablet RxNorm: 197257 1 Tablet(s) Oral two times a day take with 500mg to equal 1000mg 2019 Inactive gabapentin 300 mg capsule RxNorm: 762749 TAKE 1 CAPSULE BY MOUTH THREE TIMES DAILY 2020 Inactive cetirizine 10 mg tablet RxNorm: 8747278 TAKE (1) TABLET BY MOUTH DAILY 2020 Inactive metformin 500 mg tablet RxNorm: 956431 1 Tablet(s) Oral two times a day 2019 Inactive loperamide 2 mg tablet RxNorm: 571509 1 Tablet(s) Oral as needed take one tablet after each loose stool, maximum of 8 tablets in 24 hours 2021 Inactive Sudafed 12 Hour 120 mg tablet,extended release RxNorm: 8028450 TAKE 1 TABLET BY MOUTH EVERY 12 HOURS NEEDED 2019 Inactive hydrochlorothiazide 25 mg tablet RxNorm: 675415 TAKE (1) TABLET BY MOUTH EVERY DAY 020 2019 Inactive omeprazole 20 mg capsule,delayed release RxNorm: 195275 TAKE 1 CAPSULE BY MOUTH EVERY DAY 020 2020 Inactive metformin 500 mg tablet RxNorm: 256831 1 Tablet(s) Oral every day 020 2019 Inactive True Metrix Glucose Test Strip RxNorm: 1 Test Strips Miscellaneous two times a day as needed No Stop Date Active metformin 500 mg tablet RxNorm: 272062 1 Tablet(s) Oral every day 020 2019 Inactive diclofenac sodium 75 mg tablet,delayed release RxNorm: 539548 1 Tablet(s) PO BID 2021 Inactive This refill negates all other refills of this medication Sudafed 12 Hour 120 mg tablet,extended release RxNorm: 4771831 TAKE 1 TABLET BY MOUTH EVERY 12 HOURS NEEDED 020 2019 Inactive True Metrix Glucose Test Strip RxNorm: 1 Test Strips Miscellaneous every morning 020 2019 Inactive 100/container True Metrix Glucose Test Strip RxNorm: 1 Test Strips Miscellaneous QA 020 2019 Inactive 100/container loperamide 2 mg tablet RxNorm: 089089 1 Tablet(s) Oral as needed take one tablet after each loose stool, maximum of 8 tablets in 24 hours 020 2019 Inactive cetirizine 10 mg tablet RxNorm: 2491228 1 Tablet(s) PO daily 020 2019 Inactive loperamide 2 mg tablet RxNorm: 704281 1 Tablet(s) Oral as needed take one tablet after each loose stool, maximum of 8 tablets in 24 hours 020 2019 Inactive quetiapine 100 mg tablet RxNorm: 365568 1 Tablet(s) Oral every night at bedtime 020 2019 Inactive levothyroxine 50 mcg tablet RxNorm: 492999 1 Tablet(s) PO daily 2020 Inactive gabapentin 300 mg capsule RxNorm: 106786 1 Capsule(s) PO TID 2019 Inactive levothyroxine 50 mcg tablet RxNorm: 559877 1 Tablet(s) PO daily 2019 Inactive lisinopril 2.5 mg tablet RxNorm: 623909 1 Tablet(s) PO daily 2020 Inactive gabapentin 300 mg capsule RxNorm: 509992 1 Capsule(s) PO TID 2019 Inactive cetirizine 10 mg tablet RxNorm: 2184005 1 Tablet(s) PO daily 2019 Inactive Singulair 10 mg tablet RxNorm: 756336 1 Tablet(s) PO daily 2020 Inactive gentamicin 0.3 % eye drops RxNorm: 366959 1 Drop(s) ophthalmic (eye) four times a day 2019 Inactive gentamicin 0.3 % eye drops RxNorm: 472926 1 Drop(s) ophthalmic (eye) four times a day 2019 Inactive gentamicin 0.3 % eye drops RxNorm: 407214 1 Drop(s) ophthalmic (eye) four times a day 2019 Inactive hydrochlorothiazide 25 mg tablet RxNorm: 284586 1 Tablet(s) Oral every day 2019 Inactive Sudafed 12 Hour 120 mg tablet,extended release RxNorm: 4602517 TAKE (1) TABLET BY MOUTH EVERY 12 HOURS NEEDED 2019 Inactive loperamide 2 mg tablet RxNorm: 812308 1 Tablet(s) Oral as needed take one tablet after each loose stool, maximum of 8 tablets in 24 hours 020 2019 Inactive loperamide 2 mg tablet RxNorm: 061133 1 Tablet(s) Oral as needed take one tablet after each loose stool, maximum of 8 tablets in 24 hours 2019 Inactive atorvastatin 40 mg tablet RxNorm: 662738 1 Tablet(s) Oral every day 2020 Inactive quetiapine 100 mg tablet RxNorm: 418481 1 Tablet(s) Oral every night at bedtime 2019 Inactive sertraline 100 mg tablet RxNorm: 362032 1 Tablet(s) Oral 2019 Inactive omeprazole 20 mg capsule,delayed release RxNorm: 244594 1 Capsule(s) Oral every day 2019 Inactive amoxicillin 250 mg capsule RxNorm: 937615 1 Capsule(s) Oral three times a day 2019 Inactive multivitamin with iron-mineral tablet RxNorm: 1 Tablet(s) Oral every day 2021 Inactive cetirizine 10 mg tablet RxNorm: 4289937 1 Tablet(s) PO daily 2019 Inactive This refill negates all other refills of this medication. Please do not auto refill Singulair 10 mg tablet RxNorm: 693793 1 Tablet(s) PO daily 2019 Inactive This refill negates all other refills of this medication gabapentin 300 mg capsule RxNorm: 478004 1 Capsule(s) PO TID 2019 Inactive lisinopril 2.5 mg tablet RxNorm: 896966 1 Tablet(s) PO daily 2019 Inactive levothyroxine 50 mcg tablet RxNorm: 757971 1 Tablet(s) PO daily 2019 Inactive This refill negates all other refills of this medication hydrochlorothiazide 25 mg tablet RxNorm: 296930 1 Tablet(s) Oral every day 2019 Inactive fenugreek seed extract 500 mg capsule RxNorm: 1 Capsule(s) Oral three times a day 020 2021 Inactive Alcohol Prep Pads RxNorm: 773712 1 Patch TOP QAM 2020 Inactive loperamide 2 mg tablet RxNorm: 791951 1 Tablet(s) Oral as needed take one [...] 2019 Inactive hydrochlorothiazide 25 mg tablet RxNorm: 928010 1 Tablet(s) Oral every day 2019 Inactive Sudafed 12 Hour 120 mg tablet,extended release RxNorm: 3961609 1 Tablet(s) Oral every 12 hours as needed 2018 Inactive omeprazole 20 mg capsule,delayed release RxNorm: 206280 1 Capsule(s) Oral every day 2019 Inactive Sudafed 12 Hour 120 mg tablet,extended release RxNorm: 4293048 1 Tablet(s) Oral every 12 hours as needed 2018 Inactive pantoprazole 40 mg tablet,delayed release RxNorm: 195109 1 Tablet(s) Oral every day 2018 Inactive discontinue any other H2Blkr. and PPI albuterol sulfate 2.5 mg/3 mL (0.083 %) solution for nebulization RxNorm: 608625 1 Vial Inhalation every four hours as needed as needed for dyspnea 2019 Inactive 60/box. This refill negates all other refills of this medication. Please do not fill early. Please do not auto refill. Symbicort 160 mcg-4.5 mcg/actuation HFA aerosol inhaler RxNorm: 2513581 2 Puff(s) INH BID 11/15/2 019 No Stop Date Active Alcohol Prep Pads RxNorm: 489250 1 Patch TOP QAM 019 2019 Inactive Ventolin HFA 90 mcg/actuation aerosol inhaler RxNorm: 723798 2 Puff(s) INH QID 019 2019 Inactive Please do not fill early. Please do not auto refill. This refill negates all other refills of this medication True Metrix Glucose Test Strip RxNorm: 1 Test Strips Miscellaneous QA 019 2019 Inactive 100/container atorvastatin 40 mg tablet RxNorm: 351571 1 Tablet(s) Oral every day 2019 Inactive buspirone 7.5 mg tablet RxNorm: 637411 1 Tablet(s) PO BID 019 2020 Inactive This refill negates all other refills of this medication hydrochlorothiazide 12.5 mg tablet RxNorm: 237276 1 Tablet(s) PO QAM 019 2019 Inactive levmetamfetamine 50 mg nasal inhaler RxNorm: 1 Unit(s) NASAL Q3-4H Do not use more than every 3 hours or 8 times/24hours 2021 Inactive Please do not auto refill. This refill negates all other refills of this medication Ventolin HFA 90 mcg/actuation aerosol inhaler RxNorm: 216656 2 Puff(s) INH QID 019 2018 Inactive Please do not fill early. Please do not auto refill. This refill negates all other refills of this medication Singulair 10 mg tablet RxNorm: 839125 1 Tablet(s) PO daily 019 2019 Inactive This refill negates all other refills of this medication cetirizine 10 mg tablet RxNorm: 5285791 1 Tablet(s) PO daily 019 2019 Inactive This refill negates all other refills of this medication. Please do not auto refill levothyroxine 50 mcg tablet RxNorm: 406665 1 Tablet(s) PO daily 019 2019 Inactive This refill negates all other refills of this medication diclofenac sodium 75 mg tablet,delayed release RxNorm: 050232 1 Tablet(s) PO BID 019 2019 Inactive This refill negates all other refills of this medication ranitidine 150 mg tablet RxNorm: 253883 1 Tablet(s) PO BID 019 2018 Inactive This refill negates all other refills of this medication Calcium 600-D3 Plus (mag-zinc) 600 mg calcium-800 unit-50 mg tablet RxNorm: 1 Tablet(s) PO daily take an additonal tablet for itching. 2018 Inactive This refill negates all other refills of this medication albuterol sulfate 2.5 mg/3 mL (0.083 %) solution for nebulization RxNorm: 000026 1 Vial INH QID 2018 Inactive 60/box. This refill negates all other refills of this medication. Please do not fill early. Please do not auto refill. lisinopril 2.5 mg tablet RxNorm: 364478 1 Tablet(s) PO daily 019 2019 Inactive gabapentin 300 mg capsule RxNorm: 114995 1 Capsule(s) PO TID 019 2019 Inactive atorvastatin 20 mg tablet RxNorm: 112749 1 Tablet(s) PO QHS 2018 Inactive This refill negates all other refills of this medication TRUEplus Lancets 30 gauge RxNorm: 1 Lancets Miscellaneous QAM 019 2018 Inactive 100/box gabapentin 300 mg capsule RxNorm: 778729 1 Capsule(s) PO TID 019 2018 Inactive Flintstones Complete (iron) 18 mg iron chewable tablet RxNorm: 1 Tablet(s) PO daily 019 2021 Inactive This refill negates all other refills of this medication gabapentin 300 mg capsule RxNorm: 682259 1 Capsule(s) PO TID as needed 019 2018 Inactive True Metrix Glucose Test Strip RxNorm: 1 Test Strips Miscellaneous QA 019 2018 Inactive 100/container Alcohol Prep Pads RxNorm: 610498 1 Patch TOP [facility] 019 2018 Inactive TRUEplus Lancets 30 gauge RxNorm: 1 Lancets Miscellaneous [facility] 019 2018 Inactive 100/box lisinopril 2.5 mg tablet RxNorm: 246318 1 Tablet(s) PO daily 019 2018 Inactive ranitidine 150 mg tablet RxNorm: 064031 1 Tablet(s) PO BID 019 2018 Inactive This refill negates all other refills of this medication albuterol sulfate 2.5 mg/3 mL (0.083 %) solution for nebulization RxNorm: 134709 1 Vial INH QID 019 2018 Inactive [...] this medication gabapentin 300 mg capsule RxNorm: 353918 1 Capsule(s) PO TID as needed 019 2018 Inactive atorvastatin 20 mg tablet RxNorm: 686197 1 Tablet(s) PO QHS 019 2018 Inactive This refill negates all other refills of this medication trazodone 50 mg tablet RxNorm: 097076 1 Tablet(s) PO QHS 019 2018 Inactive This refill negates all other refills of this medication Ventolin HFA 90 mcg/actuation aerosol inhaler RxNorm: 754148 2 Puff(s) INH QID 019 2018 Inactive Please do not fill early. Please do not auto refill. This refill negates all other refills of this medication Calcium 600-D3 Plus 600 mg calcium-800 unit-50 mg tablet RxNorm: 1 Tablet(s) PO daily take an additonal tablet for itching. 019 2018 Inactive This refill negates all other refills of this medication Singulair 10 mg tablet RxNorm: 052532 1 Tablet(s) PO daily 019 2018 Inactive This refill negates all other refills of this medication buspirone 7.5 mg tablet RxNorm: 520600 1 Tablet(s) PO BID 019 2018 Inactive This refill negates all other refills of this medication diclofenac sodium 75 mg tablet,delayed release RxNorm: 292208 1 Tablet(s) PO BID 019 2018 Inactive This refill negates all other refills of this medication hydrochlorothiazide 12.5 mg tablet RxNorm: 164852 1 Tablet(s) PO QAM 019 2018 Inactive metoprolol succinate ER 50 mg tablet,extended release 24 hr RxNorm: 322184 1 Tablet(s) PO daily 019 2018 Inactive This refill negates all other refills of this medication levothyroxine 50 mcg tablet RxNorm: 101580 1 Tablet(s) PO daily 019 2018 Inactive This refill negates all other refills of this medication cetirizine 10 mg tablet RxNorm: 8282306 1 Tablet(s) PO daily 019 2018 Inactive This refill negates all other refills of this medication. Please do not auto refill Flintstones Complete (iron) 18 mg iron chewable tablet RxNorm: 1 Tablet(s) PO daily 019 2018 Inactive This refill negates all other refills of this medication buspirone 7.5 mg tablet RxNorm: 995303 1 Tablet(s) PO BID 019 2018 Inactive cetirizine 10 mg tablet RxNorm: 9922524 1 Tablet(s) PO daily 12/29/11 Inactive Guaiasorb DM 10 mg-100 mg/5 mL oral liquid RxNorm: 853385 10 Milliliter(s) PO As needed every 4 hr 2018 Inactive Vicks Vaporub 4.7 %-1.2 %-2.6 % topical ointment RxNorm: 7925674 1 Application TOP TID 2018 Inactive levmetamfetamine 50 mg nasal inhaler RxNorm: 1 Unit(s) NASAL Q3-4H 2017 Inactive sertraline 50 mg tablet RxNorm: 550648 1 Tablet(s) PO daily 2018 Inactive Please note dose trazodone 50 mg tablet RxNorm: 466174 1 Tablet(s) PO QHS 2018 Inactive sertraline 50 mg tablet RxNorm: 270909 1 Tablet(s) PO daily 2017 Inactive amoxicillin 500 mg tablet RxNorm: 917374 1 Tablet(s) PO Q12H 2017 Inactive albuterol sulfate 2.5 mg/3 mL (0.083 %) solution for nebulization RxNorm: 244509 1 Vial INH QID 2018 Inactive 60/box. Please do not fill early. Please do not auto refill. Prozac 10 mg capsule RxNorm: 454933 1 Capsule(s) PO daily 2017 Inactive buspirone 7.5 mg tablet RxNorm: 877652 1 Tablet(s) PO BID 2018 Inactive gabapentin 300 mg capsule RxNorm: 765154 1 Capsule(s) PO TID as needed 2018 Inactive hydrochlorothiazide 12.5 mg tablet RxNorm: 265701 1 Tablet(s) PO QAM 2018 Inactive ranitidine 150 mg tablet RxNorm: 778647 1 Tablet(s) PO BID 2018 Inactive Macrobid 100 mg capsule RxNorm: 880101 1 Capsule(s) PO Q12H 018 2017 Inactive Singulair 10 mg tablet RxNorm: 181499 1 Tablet(s) PO daily 018 2018 Inactive Ventolin HFA 90 mcg/actuation aerosol inhaler RxNorm: 7919675 2 Puff(s) INH QID 018 2018 Inactive Singulair 10 mg tablet RxNorm: 036729 1 Tablet(s) PO daily 018 2017 Inactive buspirone 7.5 mg tablet RxNorm: 504846 1 Tablet(s) PO BID 018 2017 Inactive Prozac 10 mg capsule RxNorm: 673568 1 Capsule(s) PO daily 018 2017 Inactive diclofenac sodium 75 mg tablet,delayed release RxNorm: 913042 1 Tablet(s) PO BID 018 2017 Inactive lisinopril 2.5 mg tablet RxNorm: 775150 1 Tablet(s) PO daily 018 2017 Inactive Neilmed Pediatric Sinus Rinse Refill packet RxNorm: 1 Unit Dose NASAL PRN 018 2021 Inactive metoprolol succinate ER 50 mg tablet,extended release 24 hr RxNorm: 466185 1 Tablet(s) PO daily 018 2017 Inactive levothyroxine 50 mcg tablet RxNorm: 231215 1 Tablet(s) PO daily 018 2017 Inactive TRUEplus Lancets 30 gauge RxNorm: 1 Lancets Miscellaneous QAM 018 2017 Inactive 100/box Ventolin HFA 90 mcg/actuation aerosol inhaler RxNorm: 197411 2 Puff(s) INH QID 018 2017 Inactive Aleve 220 mg capsule RxNorm: 6627384 1 Capsule(s) PO BID 018 2018 Inactive ranitidine 150 mg tablet RxNorm: 695608 1 Tablet(s) PO BID 018 2017 Inactive gabapentin 300 mg capsule RxNorm: 607717 1 Capsule(s) PO TID as needed 018 2017 Inactive atorvastatin 20 mg tablet RxNorm: 962853 1 Tablet(s) PO QHS 018 2017 Inactive True Metrix Glucose Test Strip RxNorm: 1 [facility] 018 2017 Inactive 50/container Calcium 600-D3 Plus 600 mg calcium-800 unit-50 mg tablet RxNorm: 1 Tablet(s) PO daily take an additonal tablet for itching. 018 2017 Inactive hydrochlorothiazide 12.5 mg tablet RxNorm: 737521 1 Tablet(s) PO QAM 018 2017 Inactive Flintstones Complete (iron) 18 mg iron chewable tablet RxNorm: 1 Tablet(s) PO daily 018 2017 Inactive True Metrix Glucose Meter RxNorm: miscellaneous 019 2018 Inactive sertraline 50 mg tablet RxNorm: 180151 1 Tablet(s) PO daily 020 2019 Inactive loperamide 2 mg tablet RxNorm: 963233 oral 019 2018 Inactive d-mannose oral powder RxNorm: PO 018 2021 Inactive Symbicort 160 mcg-4.5 mcg/actuation HFA aerosol inhaler RxNorm: 3106819 2 Puff(s) INH BID 019 2018 Inactive Medication Administered No Medication Administered data Procedures Procedure Codes Date Urinalysis, dip stick CPT-4: 29745 05/04/2023 [place] Fany Assessment CPT-4: DSWA 01/02 Fall Risk Assessment CPT-4: DFRA 01/27/2023 Hypertension CPT-4: HTN 01/27/2023 Patient Health Questionnaire CPT-4: DPHQ Pain Screening CPT-4: PAS 2022 Tobacco Assessment/Screening CPT-4: TCA Hypertension CPT-4: HTN 08/17/2022 [place] Fany Assessment CPT-4: DSWA 04/02 Patient Health [...] Care Planning CPT-4: VACP [facility] 76[facility] 4 CPT-4: DFRA01/13/2021emmes Fany AssessmentCPT-4: DSWA12/17/2020Urinalysis, dip stickCPT-4: 043225009/24/2020Patient Health QuestionnaireCPT-4: DPHQ 08/19/2020ElectrocardiogramCPT-4: 388385305/14/2020Tobacco Assessment/Screening CPT-4: TCA01/01/2020Fall Risk AssessmentSNOMED CT: 107289961 CPT-4: DFRA01/01/2020Functional AssessmentCPT-4: DFA01/01/2020[place] Fany AssessmentCPT-4: DSWA11/28/2019Patient Health QuestionnaireCPT-4: DPHQ11/28/2019 [place] Fany AssessmentCPT-4: DSWA10/17/2019HypertensionCPT-4: HTN10/17/[address]: 161286687 CPT-4: DFRA09/19/2019Functional AssessmentCPT-4: DFA111/20/2018Urinalysis, dip stickCPT-4: 6062070Tobacco Assessment/ScreeningCPT-4: TCA05/24/2019 Patient Health QuestionnaireCPT-4: DPHQ05/24/2019AHA/REBECCA Classification AssessmentCPT-4: DAHA04/25/2019Controlled Substance ReportCPT-4: CTRSU07 Urinalysis, dip stickCPT-4: 301562503/28/2019Urinalysis, dip stickCPT-4: 91048 03/28/20198004T5B-MrreawhufcenswvAWY-0: 74707CpmhafcY8A-LnaiirnycllegllBII-0: 54171 LkjizssD7O-SsuvfyshiyflwnkEGD-3: 96965HplkdneF4U-QyccpwvmplvllihOZJ-6: 39675 AhnrgdpT2O-FofxfodeeicukxgYKJ-8: 03300NvzldinM0P-KgvfqhdnthsghqvWER-9: 28132 FrnfhwdA0W-BwfcxavgfqpwprfWQI-8: 19741LdaybycZ3F-ViuwccnvdzxuczdZBD-0: 24230 VphonhmD7D-TjtrdtfokyvghjlTEO-6: 95677PcqfqfoQ9J-TfywhwcecyyqyqhSDY-3: 54842 FwjixwwF1V-NitfuvplmzlcntrBRM-3: 32172MmgheytH3I-SbitqkaelfafjxbMWS-9: 93528 [facility]Gy[facility]: 118809561 CPT-4: X36Sbmkpfg Reason For Visit No Reason For Visit data Plan of Care Planned Activity Notes Codes Status Date Patient Education: Patient Medication Summary Kyrvngmde95/01/2023ppointment: Anna Culver WPtel: [address] [place] [address] [id number]: Anna Culver WPtel: [address] [place] [address] [id number]: Anna Culver WPtel: [address] [place] [address] [id number]: Anna Culver WPtel: [address] [place] [address] [id number]: Anna Culver WPtel: [address] [place] [address] [id number]/17/2021ppointment: Anna Culver WPtel: [address] [place] [address] [id number]: Chivo Bishop WPtel: [phone] [place] [address] [id number]: Chivo Bishop WPtel: [address] [place] [address] [id number]: Mikey Nair WPtel: [address] [facility] [id number]: Chivo Bishop WPtel: [address] [place] [address] [id number]: Chivo Bishop WPtel: [address] [place] [address] [id number]: Chivo Bishop WPtel: [address] [place] [address] USETV111/11/2020ppointment: Chivo Bishop WPtel: [address] [place] [address] USETV110/13/2020ppointment: Chivo Bishop WPtel: [address] [place] [address] USETV1ppointment: Chivo Bishop WPtel: [address] [place] [address] ZBPGCL7206/10/2021ppointment: Anna Culver WPtel: [address] [place] [address] USETV06/02/2021ppointment: Chivo Bishop WPtel: [address] [place] [address] USETV05/20/2021ppointment: Anna Culver WPtel: [phone] [place] [address] [place] [address] USETV04/28/2021ppointment: Chivo Bishop WPtel: [address] [place] [address] [place] [address] USETV04/15/2021ppointment: Anna Culver WPtel: [address] [place] [address] [id number]: Anna Culver WPtel: [phone] [place] [address] USETV03/24/2021ppointment: Anna Culver WPtel: [address] [place] [address] USETV03/13/2021ppointment: Anna Culver WPtel: [address] [place] [address] [id number]: Chivo Bishop WPtel: [phone] [place] [address] [id number]: Anna Culver WPtel: [phone] [place] [address] [place] [address] USETV01/13/2021ppointment: Anna Culver WPtel: [address] [place] [address] [place] [address] [id number]: Chivo Bishop WPtel: [address] [place] [address] [place] [address] USETV11/28/2020ppointment: Anna Culver WPtel: [phone] [place] [address] USETV02/ppointment: Anna Culver WPtel: [address] [place] [address] [address] [place] [address] [id number]: Anna Culver WPtel: [address] [place] [address] [id number]/25/2019Appointment: Anna Culver WPtel: [phone] [place] [address] [address] [place] [address] USETV110/26/2019Appointment: Anna Culver WPtel: [address] [place] [address] USETV110/19/2019Appointment: Anna Culver WPtel: [address] [place] [address] USETV1Appointment: Anna Culver WPtel: [address] [place] [address] USETV1Appointment: Gianna Birmingham: [address] [facility] [address] [id number] RVAOZL5407/02/2020Appointment: Anna Culver WPtel: [address] [place] [address] [place] [address] [id number]: Anna Culver WPtel: [phone] [place] [address] [place] [address] [id number]: Anna Culver WPtel: [address] [place] [address] [place] [address] [id number]: Anna Culver WPtel: [phone] [place] [address] [place] [address] [id number]: Anna Culver WPtel: [address] [place] [address] [id number]: Anna Culver WPtel: [phone] [place] [address] [id number]: Anna Culver WPtel: [address] [place] [address] [id number]: Anna Culver WPtel: [phone] [place] [address] [id number]: Anna Culver WPtel: [phone] [place] [address] [id number]: Anna Culver WPtel: [address] [place] [address] [id number]: Sudha Hernadez WPtel: [address] [facility] [id number]: Sudha Hernadez WPtel: [address] [facility] [id number]: SandipCharlene WPtel: [address] [facility] [id number]: Enedelia [id number]: Charlene Oropeza WPtel: [address] [facility] [address] [id number]: Rasta Palafox WPtel: [address] [facility] [address] [id number]: Rasta Palafox WPtel: [address] [facility] [address] [id number]: Rasta Palafox WPtel: [address] [facility] [address] [id number]: Rasta Palafox WPtel: [address] [facility] 202 [id number]: Pending Gynecology Referral InformationReferral ProcessedReferral: Pending Pulmonology Referral InformationReferralProcessed Referral: Pending Psychiatry Referral InformationReferralInitiatedReferral: Pending Respiratory Services Referral InformationReferralInitiatedReferral: Pending Ophthalmology Referral InformationReferralInitiatedReferral: [facility] WPtel: [address] [place] [address] [address] [facility] USWriter placed a call out to the patient to notify her that it has been recommended that she be seenby 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 Patient agreed to be seen, does not have a provider of choice and no transportationissues. Production Team Member faxed referral and clinical notes to [facility] in [place], [place] near the patient's home. Patient to [...] seen and prefers a provider in the [place] or [place] area. Production Team Member placed a call out to everyone listed in the area and the only location that was able to accept the patient's insurance was [place] [address] [place] [address] and spoke with Maylin. Maylin asked that the patient's referral, face sheet and visit notes be faxed to . Production Team Member faxed over requested documents. Patient appointment confirmation letter generated and mailed to her home address. Patient to call to schedule an appointment.ProcessedReferral: [facility] WPtel: [address] [facility] [address] [id number] USPatient notified that it has been advised that she be seen by Neurology. Patient agreed to be seen and prefers to be seen by a provider in the [place], [place] area. Patient denies any concerns with transportation, and prefers to schedule her own appointment. Production Team Member placed a call out to [facility] and spoke with Neeraj [...]
--- OUTSIDE RECORDS SUMMARY | 2023-12-07 02:08 | XMS_ITS | CCD ---
Author Name Leena Culver NP Address [address] [place] [address] [place] [id number] Phone Organization [email or web address] [place] [facility] Phone Care Team Providers Care Booking Clerk Name Role Phone Anna Culver NP Primary Care Provider Unav ailable Unavailable Chronic Care Management Unavaila ble Summary Purpose DataExchange Insurance Providers Payer name Policy type / Coverage type Covered libertarian ID Effective Begin Date Effective End Date SUKI MAYO [id number] Unknown Unknown Family history Mother Diagnosis Age [...] 05/31/2018 Education level Unknown Some High School 10th05/31/20182264EsasupgtphXfetiksVvbduxcnjw72/29/2018Tobacco historySNOMED CT: 126030296Zfo never smoked or chewed yxujshe0005/31/2018Alcohol historySNOMED CT: 859056172Levkc drinks lyvoaam2505/31/2018Has the patient ever used illegal drugs? UnknownHas never used illegal drugs05/31/2018DNR Order/ Advanced Directive UnknownFull Code05/31/2018 Allergies, Adverse Reactions, Alerts Substance Reaction Codes Entered Date Inactivated Date Status *No known food allergies Wggxxvr7609/06/2018No Inactive DateActiveMethylprednisolonehivesRxNorm: 6902 09/06/2018No Inactive DateActive Problems Condition Codes Effective Dates Condition St atus GERD (gastroesophageal reflux disease) I CD-10: K21.9 ICD-9: 530.8109/07/2019ActiveAcute upper respiratory infection, unspecifiedICD- 10: J06.9 ICD-9: 465.912ActiveChronic kidney disease, unspecifiedICD-10: N18.9 ICD-9: 585.909ActiveEssential (primary) hypertensionICD-10: I10 ICD-9: 401.901/10/2018ActiveHypertensive heart disease with heart failureICD-10: I11.0 ICD-9: 402.9107/ActiveHypothyroidism, unspecifiedICD-10: E03.9 ICD-9: 244.912ActiveMixed incontinenceICD-10: N39.46 ICD-9: 788.3308ActiveType 2 diabetes mellitus without complicationsICD- 10: E11.9 ICD-9: 250.0001/10/2018ActiveHyperlipidemia, unspecifiedICD-10: E78.5 ICD-9: 272.408ActiveObstructive sleep apnea (adult) (pediatric)ICD-10: G47.33 ICD-9: 327.2309ActiveApnea, not elsewhere classifiedICD-10: R06.81 ICD-9: 786.0305ActiveEncounter for immunizationICD-10: Z23 ICD-9: V03.907/ActiveEncounter for screening, unspecifiedICD-10: Z13.9 ICD-9: V82.912ActiveUnspecified asthma, uncomplicatedICD-10: J45.909 ICD-9: 493.9011ActivePolyneuropathy, unspecifiedICD-10: G62.9 ICD-9: 356.908ActivePatient Not SeenICD-10: UXZ.01 ICD-9: XZ0.107ActiveEncounter for screening for malignant neoplasm of cervixICD-10: Z12.4 ICD-9: V76.207ActiveOther long term care pharmacist (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ICD-10: Z79.899 ICD-9: V58.6907ActiveBody mass index (BMI) 50-59.9 , adultICD-10: Z68.43 ICD-9: V85.4308/ActiveChest pain, unspecifiedICD-10: R07.9 ICD-9: 786.5002ActiveEncounter for preprocedural [...] Instructions omeprazole 20 mg capsule,delayed release RxNorm: 822521 1 Capsule(s) Oral every day 09/07/20 19 2019 Inactive Sudafed 12 Hour 120 mg tablet,extended release RxNorm: 6352556 1 Tablet(s) Oral every 12 hours as needed 09/04/20 19 2018 Inactive pantoprazole 40 mg tablet,delayed release RxNorm: 829425 1 Tablet(s) Oral every day 08/24/20 19 2018 Inactive discontinue any other H2Blkr. and PPI Alcohol Prep Pads RxNorm: 096165 1 Patch TOP QAM 08/17/20 19 2019 Inactive albuterol sulfate 2.5 mg/3 mL (0.083 %) solution for nebulization RxNorm: 919306 1 Vial Inhalation every four hours as needed as needed for dyspnea 08/17/20 19 2019 Inactive 60/box. This refill negates all other refills of this medication. Please do not fill early. Please do not auto refill. Symbicort 160 mcg-4.5 mcg/actuation HFA aerosol inhaler RxNorm: 1803306 2 Puff(s) INH BID 08/17/20 19 No Stop Date Active True Metrix Glucose Test Strip RxNorm: 1 Test Strips Miscellaneous QAM 08/09/20 19 2019 Inactive 100/container Ventolin HFA 90 mcg/actuation aerosol inhaler RxNorm: 771261 2 Puff(s) INH QID 08/09/20 19 2019 Inactive Please do not fill early. Please do not auto refill. This refill negates all other refills of this medication atorvastatin 40 mg tablet RxNorm: 185972 1 Tablet(s) Oral every day 07/04/20 19 2019 Inactive hydrochlorothiazide 12.5 mg tablet RxNorm: 689788 1 Tablet(s) PO QAM 06/26/20 19 2019 Inactive levmetamfetamine 50 mg nasal inhaler RxNorm: 1 Unit(s) NASAL Q3-4H Do not use more than every 3 hours or 8 times/24hours 06/26/20 19 2021 Inactive Please do not auto refill. This refill negates all other refills of this medication Singulair 10 mg tablet RxNorm: 876871 1 Tablet(s) PO daily 06/26/20 19 2019 Inactive This refill negates all other refills of this medication cetirizine 10 mg tablet RxNorm: 4599040 1 Tablet(s) PO daily 06/26/20 19 2019 Inactive This refill negates all other refills of this medication. Please do not auto refill levothyroxine 50 mcg tablet RxNorm: 343199 1 Tablet(s) PO daily 06/26/20 19 2019 Inactive This refill negates all other refills of this medication diclofenac sodium 75 mg tablet,delayed release RxNorm: 126502 1 Tablet(s) PO BID 06/26/20 19 2019 Inactive This refill negates all other refills of this medication buspirone 7.5 mg tablet RxNorm: 634220 1 Tablet(s) PO BID 06/26/20 19 2020 Inactive This refill negates all other refills of this medication Calcium 600-D3 Plus (mag-zinc) 600 mg calcium-800 unit-50 mg tablet RxNorm: 1 Tablet(s) PO daily take an additonal tablet for itching. 06/26/20 19 2018 Inactive This refill negates all other refills of this medication Ventolin HFA 90 mcg/actuation aerosol inhaler RxNorm: 732227 2 Puff(s) INH QID 06/26/20 19 2018 Inactive Please do not fill early. Please do not auto refill. This refill negates all other refills of this medication ranitidine 150 mg tablet RxNorm: 534454 1 Tablet(s) PO BID 06/26/20 19 2018 Inactive This refill negates all other refills of this medication albuterol sulfate 2.5 mg/3 mL (0.083 %) solution for nebulization RxNorm: 644410 1 Vial INH QID 06/26/20 19 2018 Inactive 60/box. This refill negates all other refills of this medication. Please do not fill early. Please do not auto refill. lisinopril 2.5 mg tablet RxNorm: 444259 1 Tablet(s) PO daily 06/21/20 19 2019 Inactive gabapentin 300 mg capsule RxNorm: 528379 1 Capsule(s) PO TID 06/21/20 19 2019 Inactive atorvastatin 20 mg tablet RxNorm: 592814 1 Tablet(s) PO QHS 06/07/20 19 2018 Inactive This refill negates all other refills of this medication TRUEplus Lancets 30 gauge RxNorm: 1 Lancets Miscellaneous QAM 05/29/20 19 2018 Inactive 100/box gabapentin 300 mg capsule RxNorm: 908268 1 Capsule(s) PO TID 05/03/20 19 2018 Inactive César Beckett (iron) 18 mg iron chewable tablet RxNorm: 1 Tablet(s) PO daily 04/04/202021 Inactive This refill negates all other refills of this medication gabapentin 300 mg capsule RxNorm: 740394 1 Capsule(s) PO TID as needed 02/01/202018 Inactive True Metrix Glucose Test Strip RxNorm: 1 Test Strips Miscellaneous QA 02/01/20 19 2018 Inactive 100/container Alcohol Prep Pads RxNorm: 897456 1 Patch TOP QAM 02/01/20 19 2018 Inactive TRUEplus Lancets 30 gauge RxNorm: 1 Lancets Miscellaneous QAM 02/01/20 19 2018 Inactive 100/box lisinopril 2.5 mg tablet RxNorm: 882565 1 Tablet(s) PO daily 12/28/192018 Inactive ranitidine 150 mg tablet RxNorm: 330656 1 Tablet(s) PO BID 10/21/192018 Inactive This refill negates all other refills of this medication albuterol sulfate 2.5 mg/3 mL (0.083 %) solution for nebulization RxNorm: 575866 1 Vial INH QID 10/21/192018 Inactive 60/box. [...] this medication gabapentin 300 mg capsule RxNorm: 881720 1 Capsule(s) PO TID as needed 10/21/192018 Inactive atorvastatin 20 mg tablet RxNorm: 494635 1 Tablet(s) PO QHS 10/21/192018 Inactive This refill negates all other refills of this medication trazodone 50 mg tablet RxNorm: 271055 1 Tablet(s) PO QHS 10/21/19 19 2018 Inactive This refill negates all other refills of this medication Ventolin HFA 90 mcg/actuation aerosol inhaler RxNorm: 261875 2 Puff(s) INH QID 10/21/192018 Inactive Please do not fill early. Please do not auto refill. This refill negates all other refills of this medication Calcium 600-D3 Plus 600 mg calcium-800 unit-50 mg tablet RxNorm: 1 Tablet(s) PO daily take an additonal tablet for itching. 10/21/19 19 2018 Inactive This refill negates all other refills of this medication Singulair 10 mg tablet RxNorm: 913427 1 Tablet(s) PO daily 10/21/192018 Inactive This refill negates all other refills of this medication buspirone 7.5 mg tablet RxNorm: 352512 1 Tablet(s) PO BID 10/21/192018 Inactive This refill negates all other refills of this medication diclofenac sodium 75 mg tablet,delayed release RxNorm: 748416 1 Tablet(s) PO BID 10/21/19 19 2018 Inactive This refill negates all other refills of this medication hydrochlorothiazide 12.5 mg tablet RxNorm: 907595 1 Tablet(s) PO QAM 10/21/192018 Inactive metoprolol succinate ER 50 mg tablet,extended release 24 hr RxNorm: 215156 1 Tablet(s) PO daily 10/21/192018 Inactive This refill negates all other refills of this medication levothyroxine 50 mcg tablet RxNorm: 814771 1 Tablet(s) PO daily 10/21/192018 Inactive This refill negates all other refills of this medication cetirizine 10 mg tablet RxNorm: 6215262 1 Tablet(s) PO daily 10/21/192018 Inactive This refill negates all other refills of this medication. Please do not auto refill Flintstones Complete (iron) 18 mg iron chewable tablet RxNorm: 1 Tablet(s) PO daily 10/21/192018 Inactive This refill negates all other refills of this medication buspirone 7.5 mg tablet RxNorm: 688463 1 Tablet(s) PO BID 10/12/19 19 2018 Inactive cetirizine 10 mg tablet RxNorm: 5237899 1 Tablet(s) PO daily 09/28/20 18 2018 Inactive Guaiasorb DM 10 mg-100 mg/5 mL oral liquid RxNorm: 561384 10 Milliliter(s) PO As needed every 4 hr 09/24/20 18 2018 Inactive Vicks Vaporub 4.7 %-1.2 %-2.6 % topical ointment RxNorm: 9406576 1 Application TOP TID 09/24/20 18 2018 Inactive levmetamfetamine 50 mg nasal inhaler RxNorm: 1 Unit(s) NASAL Q3-4H 09/24/20 18 2017 Inactive sertraline 50 mg tablet RxNorm: 812004 1 Tablet(s) PO daily 09/09/20 18 2018 Inactive Please note dose trazodone 50 mg tablet RxNorm: 570572 1 Tablet(s) PO QHS 09/06/20 18 2018 Inactive sertraline 50 mg tablet RxNorm: 088129 1 Tablet(s) PO daily 09/06/20 18 2017 Inactive amoxicillin 500 mg tablet RxNorm: 849872 1 Tablet(s) PO Q12H 08/31/20 18 2017 Inactive albuterol sulfate 2.5 mg/3 mL (0.083 %) solution for nebulization RxNorm: 092640 1 Vial INH QID 08/10/20 18 2018 Inactive 60/box. Please do not fill early. Please do not auto refill. Prozac 10 mg capsule RxNorm: 947970 1 Capsule(s) PO daily 08/09/20 18 2017 Inactive buspirone 7.5 mg tablet RxNorm: 382033 1 Tablet(s) PO BID 08/09/20 18 2018 Inactive gabapentin 300 mg capsule RxNorm: 927155 1 Capsule(s) PO TID as needed 08/01/20 18 2018 Inactive hydrochlorothiazide 12.5 mg tablet RxNorm: 066030 1 Tablet(s) PO QAM 08/01/20 18 2018 Inactive ranitidine 150 mg tablet RxNorm: 576929 1 Tablet(s) PO BID 08/01/20 18 2018 Inactive Macrobid 100 mg capsule RxNorm: 676680 1 Capsule(s) PO Q12H 06/21/20 18 2017 Inactive Singulair 10 mg tablet RxNorm: 491721 1 Tablet(s) PO daily 06/14/20 18 2018 Inactive Ventolin HFA 90 mcg/actuation aerosol inhaler RxNorm: 8364950 2 Puff(s) INH QID 06/14/20 18 2018 Inactive Singulair 10 mg tablet RxNorm: 571898 1 Tablet(s) PO daily 06/14/20 18 2017 Inactive buspirone 7.5 mg tablet RxNorm: 206982 1 Tablet(s) PO BID 06/14/20 18 2017 Inactive Prozac 10 mg capsule RxNorm: 564700 1 Capsule(s) PO daily 06/14/20 18 2017 Inactive Neilmed Pediatric Sinus Rinse Refill packet RxNorm: 1 Unit Dose NASAL PRN 05/31/20 18 2021 Inactive diclofenac sodium 75 mg tablet,delayed release RxNorm: 900294 1 Tablet(s) PO BID 05/31/20 18 2017 Inactive lisinopril 2.5 mg tablet RxNorm: 106569 1 Tablet(s) PO daily 05/31/20 18 2017 Inactive metoprolol succinate ER 50 mg tablet,extended release 24 hr RxNorm: 770952 1 Tablet(s) PO daily 05/31/20 18 2017 Inactive levothyroxine 50 mcg tablet RxNorm: 392523 1 Tablet(s) PO daily 05/31/20 18 2017 Inactive TRUEplus Lancets 30 gauge RxNorm: 1 Lancets Miscellaneous QAM 05/31/20 18 2017 Inactive 100/box Ventolin HFA 90 mcg/actuation aerosol inhaler RxNorm: 260813 2 Puff(s) INH QID 05/31/20 18 2017 Inactive Aleve 220 mg capsule RxNorm: 2382486 1 Capsule(s) PO BID 05/31/20 18 2018 Inactive ranitidine 150 mg tablet RxNorm: 481112 1 Tablet(s) PO BID 05/31/20 18 2017 Inactive gabapentin 300 mg capsule RxNorm: 491236 1 Capsule(s) PO TID as needed 05/31/20 18 2017 Inactive atorvastatin 20 mg tablet RxNorm: 549648 1 Tablet(s) PO QHS 05/31/20 18 2017 Inactive True Metrix Glucose Test Strip RxNorm: 1 Test Strips [facility] QAM 05/31/20 18 2017 Inactive 50/container Calcium 600-D3 Plus 600 mg calcium-800 unit-50 mg tablet RxNorm: 1 Tablet(s) PO daily take an additonal tablet for itching. 05/31/20 18 2017 Inactive hydrochlorothiazide 12.5 mg tablet RxNorm: 237309 1 Tablet(s) PO QAM 05/31/20 18 2017 Inactive Flintstones Complete (iron) 18 mg iron chewable tablet RxNorm: 1 Tablet(s) PO daily 05/31/20 18 2017 Inactive sertraline 50 mg tablet RxNorm: 795052 1 Tablet(s) PO daily 11/28/19 20 2019 Inactive loperamide 2 mg tablet RxNorm: 867826 oral 09/29/20 19 2018 Inactive d-mannose oral powder RxNorm: PO 18 2021 Inactive True Metrix Glucose Meter RxNorm: miscellaneous 08/17/20 19 2018 Inactive Symbicort 160 mcg-4.5 mcg/actuation HFA aerosol inhaler RxNorm: 6588479 2 Puff(s) INH BID 08/17/20 19 2018 Inactive Medication Administered No Medication Administered data Procedures Procedure Codes Date Urinalysis, dip stick CPT-4: 75503 06/21/2019 Tobacco Assessment/Screening CPT-4: TCA Patient Health Questionnaire CPT-4: DPHQ [facility] Classification Assessment CPT-4: DAHA 04/25/2019 Controlled Substance Report CPT-4: CTRSU 04/03 Urinalysis, dip stick CPT-4: 19307 03/28/2019 Urinalysis, dip stick CPT-4: 92955 03/28/2019 [id number] CPT-4: 42433 Unknown Gynecology Referral SNOMED CT: 279419757 CPT-4: X43Lthhveb Reason For Visit No Reason For Visit data Plan of Care Planned Activity Notes Codes Status Date Patient Education: Patient Medication Summary Qcnrjetif38/06/2019Appointment: Sudha Hernadez WPtel: [address] [facility] [id number]: Sudha Hernadez WPtel: [address] [facility] [id number]: SandipCharlene WPtel: [address] [facility] [id number]: Enedelia Delgado45Appointment: Xaviermoisesanders Charlene WPtel: [address] [facility] [id number]: Hema Palafoxothy WPtel: [address] [facility] [id number]: Javy Rasta WPtel: [address] [facility] [id number]: Javy Rasta WPtel: [address] [facility] [id number]: Rasta Palafox WPtel: [address] [facility] [address] [id number]: Pending Gynecology Referral InformationReferral ProcessedReferral: Pending Pulmonology Referral InformationReferralProcessed Referral: Pending Psychiatry Referral InformationReferralInitiatedReferral: Pending Respiratory Services Referral InformationReferralInitiatedReferral: Pending Ophthalmology Referral InformationReferralInitiatedReferral: [facility] WPtel: [address] [facility] [address] [id number] USWriter placed a call out to the patient to notify her that it has been recommended that she be seenby 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 Patient agreed to be seen, does not have a provider of choice and no transportationissues. Manager Fleet faxed referral and clinical notes to [facility] in [place], [place] near the patient's home. Patient to [...] seen and prefers a provider in the [place] or [place] area. Manager Fleet placed a call out to everyone listed in the area and the only location that was able to accept the patient's insurance was [address] [address] and spoke with Maylin. Maylin asked that the patient's referral, face sheet and visit notes be faxed to . Manager Fleet faxed over requested documents. Patient appointment confirmation letter generated and mailed to her home address. Patient to call to schedule an appointment.ProcessedReferral: [facility] WPtel: [address] [facility] [address] [id number] USPatient notified that it has been advised that she be seen by Neurology. Patient agreed to be seen and prefers to be seen by a provider in the [place], [place] area. Patient denies any concerns with transportation, and prefers to schedule her own appointment. Manager Fleet placed a call out to [facility] and spoke with [...]
--- OUTSIDE RECORDS SUMMARY | 2023-12-07 02:08 | XMS_ITS | CCD ---
Author Name Leena Culver NP Address [address] [place] [address] [place] [id number] Phone Organization [facility] Phone Care Team Providers Care Press Breaker Name Role Phone Anna Culver NP Primary Care Provider Unav ailable Unavailable Chronic Care Management Unavaila ble Summary Purpose DataExchange Insurance Providers Payer name Policy type / Coverage type Covered democrat ID Effective Begin Date Effective End Date SUKI MAYO [id number] Unknown Unknown Family history Mother Diagnosis Age [...] 05/31/2018 Education level Unknown Some High School 10th05/31/20187679TeaxzlwiwfVtvewypGtioryjbok21/29/2018Tobacco historySNOMED CT: 981956244Eqz never smoked or chewed jnfsjgb1305/31/2018Alcohol historySNOMED CT: 882641569Thysm drinks lcfslen9505/31/2018Has the patient ever used illegal drugs? UnknownHas never used illegal drugs05/31/2018DNR Order/ Advanced Directive UnknownFull Code05/31/2018 Allergies, Adverse Reactions, Alerts Substance Reaction Codes Entered Date Inactivated Date Status *No known food allergies Ojemlci9209/06/2018No Inactive DateActiveMethylprednisolonehivesRxNorm: 6902 09/06/2018No Inactive DateActive Problems Condition Codes Effective Dates Condition St atus Acute upper respiratory infection, unspe cified ICD-10: J06.9 ICD-9: 465.912ActiveChronic kidney disease, unspecifiedICD-10: N18.9 ICD-9: 585.909ActiveEssential (primary) hypertensionICD-10: I10 ICD-9: 401.901ActiveHypertensive heart disease with heart failureICD-10: I11.0 ICD-9: 402.9107/ActiveHypothyroidism, unspecifiedICD-10: E03.9 ICD-9: 244.912ActiveMixed incontinenceICD-10: N39.46 ICD-9: 788.3308ActiveType 2 diabetes mellitus without complicationsICD- 10: E11.9 ICD-9: 250.0001ActiveHyperlipidemia, unspecifiedICD-10: E78.5 ICD-9: 272.408ActiveObstructive sleep apnea (adult) (pediatric)ICD-10: G47.33 ICD-9: 327.2309ActiveApnea, not elsewhere classifiedICD-10: R06.81 ICD-9: 786.0305ActiveEncounter for immunizationICD-10: Z23 ICD-9: V03.907ActiveEncounter for screening, unspecifiedICD-10: Z13.9 ICD-9: V82.912ActiveUnspecified asthma, uncomplicatedICD-10: J45.909 ICD-9: 493.9011ActivePolyneuropathy, unspecifiedICD-10: G62.9 ICD-9: 356.908ActivePatient Not SeenICD-10: UXZ.01 ICD-9: XZ0.107ActiveEncounter for screening for malignant neoplasm of cervixICD-10: Z12.4 ICD-9: V76.207ActiveOther intermodal truck driver (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ICD-10: Z79.899 ICD-9: V58.6907ActiveBody mass [...] 12 Hour 120 mg tablet,extended release RxNorm: 7666819 1 Tablet(s) Oral every 12 hours as needed 09/04/20 19 2018 Inactive pantoprazole 40 mg tablet,delayed release RxNorm: 943063 1 Tablet(s) Oral every day 08/24/202018 Inactive discontinue any other H2Blkr. and PPI Alcohol Prep Pads RxNorm: 616643 1 Patch TOP QAM 08/17/20 19 2019 Inactive albuterol sulfate 2.5 mg/3 mL (0.083 %) solution for nebulization RxNorm: 357839 1 Vial Inhalation every four hours as needed as needed for dyspnea 08/17/20 19 2019 Inactive 60/box. This refill negates all other refills of this medication. Please do not fill early. Please do not auto refill. Symbicort 160 mcg-4.5 mcg/actuation HFA aerosol inhaler RxNorm: 5556007 2 Puff(s) INH BID 08/17/20 19 No Stop Date Active True Metrix Glucose Test Strip RxNorm: 1 Test Strips Miscellaneous QAM 08/09/20 19 2019 Inactive 100/container Ventolin HFA 90 mcg/actuation aerosol inhaler RxNorm: 663980 2 Puff(s) INH QID 08/09/20 19 2019 Inactive Please do not fill early. Please do not auto refill. This refill negates all other refills of this medication atorvastatin 40 mg tablet RxNorm: 096234 1 Tablet(s) Oral every day 07/04/20 19 2019 Inactive hydrochlorothiazide 12.5 mg tablet RxNorm: 989562 1 Tablet(s) PO QAM 06/26/20 19 2019 Inactive levmetamfetamine 50 mg nasal inhaler RxNorm: 1 Unit(s) NASAL Q3-4H Do not use more than every 3 hours or 8 times/24hours 06/26/20 19 2021 Inactive Please do not auto refill. This refill negates all other refills of this medication Singulair 10 mg tablet RxNorm: 427867 1 Tablet(s) PO daily 06/26/20 19 2019 Inactive This refill negates all other refills of this medication cetirizine 10 mg tablet RxNorm: 6949687 1 Tablet(s) PO daily 06/26/20 19 2019 Inactive This refill negates all other refills of this medication. Please do not auto refill levothyroxine 50 mcg tablet RxNorm: 960433 1 Tablet(s) PO daily 06/26/20 19 2019 Inactive This refill negates all other refills of this medication diclofenac sodium 75 mg tablet,delayed release RxNorm: 072094 1 Tablet(s) PO BID 06/26/20 19 2019 Inactive This refill negates all other refills of this medication buspirone 7.5 mg tablet RxNorm: 048622 1 Tablet(s) PO BID 06/26/20 19 2020 Inactive This refill negates all other refills of this medication Calcium 600-D3 Plus (mag-zinc) 600 mg calcium-800 unit-50 mg tablet RxNorm: 1 Tablet(s) PO daily take an additonal tablet for itching. 06/26/20 19 2018 Inactive This refill negates all other refills of this medication Ventolin HFA 90 mcg/actuation aerosol inhaler RxNorm: 414312 2 Puff(s) INH QID 06/26/20 19 2018 Inactive Please do not fill early. Please do not auto refill. This refill negates all other refills of this medication ranitidine 150 mg tablet RxNorm: 290308 1 Tablet(s) PO BID 06/26/20 19 2018 Inactive This refill negates all other refills of this medication albuterol sulfate 2.5 mg/3 mL (0.083 %) solution for nebulization RxNorm: 533903 1 Vial INH QID 06/26/20 19 2018 Inactive 60/box. This refill negates all other refills of this medication. Please do not fill early. Please do not auto refill. lisinopril 2.5 mg tablet RxNorm: 617005 1 Tablet(s) PO daily 06/21/20 19 2019 Inactive gabapentin 300 mg capsule RxNorm: 778352 1 Capsule(s) PO TID 06/21/20 19 2019 Inactive atorvastatin 20 mg tablet RxNorm: 693163 1 Tablet(s) PO QHS 06/07/20 19 2018 Inactive This refill negates all other refills of this medication TRUEplus Lancets 30 gauge RxNorm: 1 Lancets Miscellaneous QAM 05/29/20 19 2018 Inactive 100/box gabapentin 300 mg capsule RxNorm: 644504 1 Capsule(s) PO TID 05/03/20 19 2018 Inactive Flintstones Complete (iron) 18 mg iron chewable tablet RxNorm: 1 Tablet(s) PO daily 04/04/20 19 2021 Inactive This refill negates all other refills of this medication gabapentin 300 mg capsule RxNorm: 173439 1 Capsule(s) PO TID as needed 02/01/20 19 2018 Inactive True Metrix Glucose Test Strip RxNorm: 1 Test Strips Miscellaneous QAM 02/01/20 19 2018 Inactive 100/container Alcohol Prep Pads RxNorm: 592340 1 Patch TOP QAM 02/01/20 19 2018 Inactive TRUEplus Lancets 30 gauge RxNorm: 1 Lancets Miscellaneous QAM 02/01/20 19 2018 Inactive 100/box lisinopril 2.5 mg tablet RxNorm: 873481 1 Tablet(s) PO daily 12/28/19 19 2018 Inactive ranitidine 150 mg tablet RxNorm: 820272 1 Tablet(s) PO BID 10/21/192018 Inactive This refill negates all other refills of this medication albuterol sulfate 2.5 mg/3 mL (0.083 %) solution for nebulization RxNorm: 939620 1 Vial INH QID 10/21/192018 Inactive 60/box. [...] this medication gabapentin 300 mg capsule RxNorm: 382342 1 Capsule(s) PO TID as needed 10/21/192018 Inactive atorvastatin 20 mg tablet RxNorm: 383875 1 Tablet(s) PO QHS 10/21/19 19 2018 Inactive This refill negates all other refills of this medication trazodone 50 mg tablet RxNorm: 773300 1 Tablet(s) PO QHS 10/21/19 19 2018 Inactive This refill negates all other refills of this medication Ventolin HFA 90 mcg/actuation aerosol inhaler RxNorm: 542884 2 Puff(s) INH QID 10/21/192018 Inactive Please do not fill early. Please do not auto refill. This refill negates all other refills of this medication Calcium 600-D3 Plus 600 mg calcium-800 unit-50 mg tablet RxNorm: 1 Tablet(s) PO daily take an additonal tablet for itching. 10/21/19 19 2018 Inactive This refill negates all other refills of this medication Singulair 10 mg tablet RxNorm: 323287 1 Tablet(s) PO daily 10/21/192018 Inactive This refill negates all other refills of this medication buspirone 7.5 mg tablet RxNorm: 348525 1 Tablet(s) PO BID 10/21/192018 Inactive This refill negates all other refills of this medication diclofenac sodium 75 mg tablet,delayed release RxNorm: 017948 1 Tablet(s) PO BID 10/21/19 19 2018 Inactive This refill negates all other refills of this medication hydrochlorothiazide 12.5 mg tablet RxNorm: 306026 1 Tablet(s) PO QAM 10/21/19 19 2018 Inactive metoprolol succinate ER 50 mg tablet,extended release 24 hr RxNorm: 732541 1 Tablet(s) PO daily 10/21/192018 Inactive This refill negates all other refills of this medication levothyroxine 50 mcg tablet RxNorm: 380110 1 Tablet(s) PO daily 10/21/192018 Inactive This refill negates all other refills of this medication cetirizine 10 mg tablet RxNorm: 2703856 1 Tablet(s) PO daily 10/21/192018 Inactive This refill negates all other refills of this medication. Please do not auto refill Flintstones Complete (iron) 18 mg iron chewable tablet RxNorm: 1 Tablet(s) PO daily 10/21/192018 Inactive This refill negates all other refills of this medication buspirone 7.5 mg tablet RxNorm: 098409 1 Tablet(s) PO BID 10/12/19 19 2018 Inactive cetirizine 10 mg tablet RxNorm: 2187847 1 Tablet(s) PO daily 09/28/20 18 2018 Inactive Guaiasorb DM 10 mg-100 mg/5 mL oral liquid RxNorm: 676740 10 Milliliter(s) PO As needed every 4 hr 09/24/20 18 2018 Inactive Vicks Vaporub 4.7 %-1.2 %-2.6 % topical ointment RxNorm: 7389415 1 Application TOP TID 09/24/20 18 2018 Inactive levmetamfetamine 50 mg nasal inhaler RxNorm: 1 Unit(s) NASAL Q3-4H 09/24/20 18 2017 Inactive sertraline 50 mg tablet RxNorm: 925412 1 Tablet(s) PO daily 09/09/20 18 2018 Inactive Please note dose trazodone 50 mg tablet RxNorm: 073276 1 Tablet(s) PO QHS 09/06/20 18 2018 Inactive sertraline 50 mg tablet RxNorm: 996198 1 Tablet(s) PO daily 09/06/20 18 2017 Inactive amoxicillin 500 mg tablet RxNorm: 156615 1 Tablet(s) PO Q12H 08/31/20 18 2017 Inactive albuterol sulfate 2.5 mg/3 mL (0.083 %) solution for nebulization RxNorm: 086639 1 Vial INH QID 08/10/20 18 2018 Inactive 60/box. Please do not fill early. Please do not auto refill. Prozac 10 mg capsule RxNorm: 754636 1 Capsule(s) PO daily 08/09/20 18 2017 Inactive buspirone 7.5 mg tablet RxNorm: 971151 1 Tablet(s) PO BID 08/09/20 18 2018 Inactive gabapentin 300 mg capsule RxNorm: 700396 1 Capsule(s) PO TID as needed 08/01/20 18 2018 Inactive hydrochlorothiazide 12.5 mg tablet RxNorm: 089556 1 Tablet(s) PO QAM 08/01/20 18 2018 Inactive ranitidine 150 mg tablet RxNorm: 787880 1 Tablet(s) PO BID 08/01/20 2018 Inactive Macrobid 100 mg capsule RxNorm: 704101 1 Capsule(s) PO Q12H 06/21/20 18 2017 Inactive Singulair 10 mg tablet RxNorm: 646908 1 Tablet(s) PO daily 06/14/20 18 2018 Inactive Ventolin HFA 90 mcg/actuation aerosol inhaler RxNorm: 6459637 2 Puff(s) INH QID 06/14/20 18 2018 Inactive Singulair 10 mg tablet RxNorm: 406869 1 Tablet(s) PO daily 06/14/20 18 2017 Inactive buspirone 7.5 mg tablet RxNorm: 944395 1 Tablet(s) PO BID 06/14/20 18 2017 Inactive Prozac 10 mg capsule RxNorm: 275834 1 Capsule(s) PO daily 06/14/20 18 2017 Inactive Neilmed Pediatric Sinus Rinse Refill packet RxNorm: 1 Unit Dose NASAL PRN 05/31/20 18 2021 Inactive diclofenac sodium 75 mg tablet,delayed release RxNorm: 570616 1 Tablet(s) PO BID 05/31/20 18 2017 Inactive lisinopril 2.5 mg tablet RxNorm: 125509 1 Tablet(s) PO daily 05/31/20 18 2017 Inactive metoprolol succinate ER 50 mg tablet,extended release 24 hr RxNorm: 398281 1 Tablet(s) PO daily 05/31/20 18 2017 Inactive levothyroxine 50 mcg tablet RxNorm: 079614 1 Tablet(s) PO daily 05/31/20 18 2017 Inactive TRUEplus Lancets 30 gauge RxNorm: 1 Lancets Miscellaneous QAM 05/31/20 18 2017 Inactive 100/box Ventolin HFA 90 mcg/actuation aerosol inhaler RxNorm: 371900 2 Puff(s) INH QID 05/31/20 18 2017 Inactive Aleve 220 mg capsule RxNorm: 7418284 1 Capsule(s) PO BID 05/31/20 18 2018 Inactive ranitidine 150 mg tablet RxNorm: 346215 1 Tablet(s) PO BID 05/31/20 18 2017 Inactive gabapentin 300 mg capsule RxNorm: 800059 1 Capsule(s) PO TID as needed 05/31/20 18 2017 Inactive atorvastatin 20 mg tablet RxNorm: 893414 1 Tablet(s) PO QHS 05/31/20 18 2017 Inactive True Metrix Glucose Test Strip RxNorm: 1 Test Strips Miscellaneous [facility] 05/31/20 18 2017 Inactive 50/container Calcium 600-D3 Plus 600 mg calcium-800 unit-50 mg tablet RxNorm: 1 Tablet(s) PO daily take an additonal tablet for itching. 05/31/20 18 2017 Inactive hydrochlorothiazide 12.5 mg tablet RxNorm: 280199 1 Tablet(s) PO QAM 05/31/20 18 2017 Inactive Flintstones Complete (iron) 18 mg iron chewable tablet RxNorm: 1 Tablet(s) PO daily 05/31/20 18 2017 Inactive sertraline 50 mg tablet RxNorm: 816022 1 Tablet(s) PO daily 11/28/19 20 2019 Inactive loperamide 2 mg tablet RxNorm: 183526 oral 09/29/20 19 2018 Inactive d-mannose oral powder RxNorm: PO 18 2021 Inactive True Metrix Glucose Meter RxNorm: miscellaneous 08/17/20 19 2018 Inactive Symbicort 160 mcg-4.5 mcg/actuation HFA aerosol inhaler RxNorm: 5990875 2 Puff(s) INH BID 08/17/20 19 2018 Inactive Medication Administered No Medication Administered data Procedures Procedure Codes Date Urinalysis, dip stick CPT-4: 09355 06/21/2019 Tobacco Assessment/Screening CPT-4: TCA Patient Health Questionnaire CPT-4: DPHQ AHA/REBECCA Classification Assessment CPT-4: DAHA 04/25/2019 Controlled Substance Report CPT-4: CTRSU 04/03 Urinalysis, dip stick CPT-4: 88855 03/28/2019 Urinalysis, dip stick CPT-4: 63563 03/28/2019 [id number] CPT-4: 60993 Unknown Gynecology Referral [facility] CT: [id number] CPT-4: W09Dsmwjje Reason For Visit No Reason For Visit data Plan of Care Planned Activity Notes Codes Status Date Patient Education: Patient Medication Summary Nogdhatrx32/03/2019Appointment: Sudha Hernadez WPtel: [address] [facility] b [id number]: Sudha Hernadez WPtel: [address] [facility] [id number]: Charlene Oropeza WPtel: [address] [facility] [id number]: Enedelia Delgado45Appointment: Charlene Oropeza WPtel: [address] [facility] b [id number]: Javy Rasta WPtel: [address] [facility] b [id number]: Javy Rasta WPtel: [address] [facility] [id number]: Javy Rasta WPtel: [address] [facility] b [id number]: Hema Palafoxothy WPtel: [address] [facility] b [id number]: Pending Gynecology Referral InformationReferral ProcessedReferral: Pending Pulmonology Referral InformationReferralProcessed Referral: Pending Psychiatry Referral InformationReferralInitiatedReferral: Pending Respiratory Services Referral InformationReferralInitiatedReferral: Pending Ophthalmology Referral InformationReferralInitiatedReferral: [facility] WPtel: [address] [facility] [address] [place] USWriter placed a call out to the patient to notify her that it has been recommended that she be seenby 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 Patient agreed to be seen, does not have a provider of choice and no transportationissues. Rejected Items Clerk faxed referral and clinical notes to [facility] in [place], [place] near the patient's home. Patient to [...] seen and prefers a provider in the [place] or [place] area. Rejected Items Clerk placed a call out to everyone listed in the area and the only location that was able to accept the patient's insurance was [address] [address] and spoke with Maylin. Maylin asked that the patient's referral, face sheet and visit notes be faxed to . Rejected Items Clerk faxed over requested documents. Patient appointment confirmation letter generated and mailed to her home address. Patient to call to schedule an appointment.ProcessedReferral: [facility] W[facility]el: [address] [facility] [address] [id number] USPatient notified that it has been advised that she be seen by Neurology. Patient agreed to be seen and prefers to be seen by a provider in the [place], [place] area. Patient denies any concerns with transportation, and prefers to schedule her own appointment. Rejected Items Clerk [facility] and spoke with Neeraj Mcfarland: [...]
--- OUTSIDE RECORDS SUMMARY | 2023-12-07 02:08 | XMS_ITS | CCD ---
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 Corporate Wellness Coordinator Name Role Phone Palomo KING, Anna Primary Care Provider Unav ailable Unavailable Chronic Care Management Unavaila ble Summary Purpose DataExchange Insurance Providers Payer name Policy type / Coverage type Covered libertarian ID Effective Begin Date Effective End Date [employer] [facility] [id number] Unknown Unknown Family history Mother Diagnosis Age [...] 05/31/2018 Education level Unknown Some High School 10th05/31/20185015CxaxrmwvqvJsrgoauOsyeqizvlo23/29/2018Tobacco historySNOMED CT: 084506997Hfv never smoked or chewed lvwedvi3105/31/2018Alcohol historySNOMED CT: 814694617Qxnim drinks fenygej0205/31/2018Has the patient ever used illegal drugs? UnknownHas never used illegal drugs05/31/2018DNR Order/ Advanced Directive UnknownFull Code05/31/2018 Allergies, Adverse Reactions, Alerts Substance Reaction Codes Entered Date Inactivated Date Status *No known food allergies Eaybjwt6709/06/2018No Inactive DateActiveMethylprednisolonehivesRxNorm: 6902 09/06/2018No Inactive DateActive Problems Condition Codes Effective Dates Condition St atus GERD (gastroesophageal reflux disease) I CD-10: K21.9 ICD-9: 530.8112ActiveAcute upper respiratory infection, unspecifiedICD- 10: J06.9 ICD-9: 465.912ActiveChronic kidney disease, unspecifiedICD-10: N18.9 ICD-9: 585.909ActiveEssential (primary) hypertensionICD-10: I10 ICD-9: 401.901/10/2018ActiveHypertensive heart disease with heart failureICD-10: I11.0 ICD-9: 402.9107/ActiveHypothyroidism, unspecifiedICD-10: E03.9 ICD-9: 244.912/01/2018ActiveMixed incontinenceICD-10: N39.46 ICD-9: 788.3308ActiveType 2 diabetes mellitus without complicationsICD- 10: E11.9 ICD-9: 250.0001/10/2018ActiveHyperlipidemia, unspecifiedICD-10: E78.5 ICD-9: 272.408ActiveObstructive sleep apnea (adult) (pediatric)ICD-10: G47.33 ICD-9: 327.2309/ActiveApnea, not elsewhere classifiedICD-10: R06.81 ICD-9: 786.0305ActiveEncounter for immunizationICD-10: Z23 ICD-9: V03.907/ActiveEncounter for screening, unspecifiedICD-10: Z13.9 ICD-9: V82.912ActiveUnspecified asthma, uncomplicatedICD-10: J45.909 ICD-9: 493.9011ActivePolyneuropathy, unspecifiedICD-10: G62.9 ICD-9: 356.908ActivePatient Not SeenICD-10: UXZ.01 ICD-9: XZ0.107ActiveEncounter for screening for malignant neoplasm of cervixICD-10: Z12.4 ICD-9: V76.207/ActiveOther [facility]itent[facility] (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ICD-10: Z79.899 ICD-9: V58.6907ActiveBody mass [...] 12 Hour 120 mg tablet,extended release RxNorm: 5063001 1 Tablet(s) Oral every 12 hours as needed 09/11/20 19 2018 Inactive omeprazole 20 mg capsule,delayed release RxNorm: 466295 1 Capsule(s) Oral every day 09/07/20 19 2019 Inactive Sudafed 12 Hour 120 mg tablet,extended release RxNorm: 1742348 1 Tablet(s) Oral every 12 hours as needed 09/04/20 19 2018 Inactive pantoprazole 40 mg tablet,delayed release RxNorm: 532133 1 Tablet(s) Oral every day 08/24/20 19 2018 Inactive discontinue any other H2Blkr. and PPI Alcohol Prep Pads RxNorm: 880563 1 Patch TOP QAM 08/17/20 19 2019 Inactive albuterol sulfate 2.5 mg/3 mL (0.083 %) solution for nebulization RxNorm: 100553 1 Vial Inhalation every four hours as needed as needed for dyspnea 08/17/20 19 2019 Inactive 60/box. This refill negates all other refills of this medication. Please do not fill early. Please do not auto refill. Symbicort 160 mcg-4.5 mcg/actuation HFA aerosol inhaler RxNorm: 4925588 2 Puff(s) INH BID 08/17/20 19 No Stop Date Active True Metrix Glucose Test Strip RxNorm: 1 Test Strips Miscellaneous QAM 08/09/20 19 2019 Inactive 100/container Ventolin HFA 90 mcg/actuation aerosol inhaler RxNorm: 647951 2 Puff(s) INH QID 08/09/20 19 2019 Inactive Please do not fill early. Please do not auto refill. This refill negates all other refills of this medication atorvastatin 40 mg tablet RxNorm: 442176 1 Tablet(s) Oral every day 07/04/20 19 2019 Inactive hydrochlorothiazide 12.5 mg tablet RxNorm: 747958 1 Tablet(s) PO QAM 06/26/20 19 2019 Inactive levmetamfetamine 50 mg nasal inhaler RxNorm: 1 Unit(s) NASAL Q3-4H Do not use more than every 3 hours or 8 times/24hours 06/26/20 19 2021 Inactive Please do not auto refill. This refill negates all other refills of this medication Singulair 10 mg tablet RxNorm: 938056 1 Tablet(s) PO daily 06/26/20 19 2019 Inactive This refill negates all other refills of this medication cetirizine 10 mg tablet RxNorm: 8705069 1 Tablet(s) PO daily 06/26/20 19 2019 Inactive This refill negates all other refills of this medication. Please do not auto refill levothyroxine 50 mcg tablet RxNorm: 686469 1 Tablet(s) PO daily 06/26/20 19 2019 Inactive This refill negates all other refills of this medication diclofenac sodium 75 mg tablet,delayed release RxNorm: 220960 1 Tablet(s) PO BID 06/26/20 19 2019 Inactive This refill negates all other refills of this medication buspirone 7.5 mg tablet RxNorm: 010998 1 Tablet(s) PO BID 06/26/20 19 2020 Inactive This refill negates all other refills of this medication Calcium 600-D3 Plus (mag-zinc) 600 mg calcium-800 unit-50 mg tablet RxNorm: 1 Tablet(s) PO daily take an additonal tablet for itching. 06/26/20 19 2018 Inactive This refill negates all other refills of this medication Ventolin HFA 90 mcg/actuation aerosol inhaler RxNorm: 482206 2 Puff(s) INH QID 06/26/20 19 2018 Inactive Please do not fill early. Please do not auto refill. This refill negates all other refills of this medication ranitidine 150 mg tablet RxNorm: 560554 1 Tablet(s) PO BID 06/26/20 19 2018 Inactive This refill negates all other refills of this medication albuterol sulfate 2.5 mg/3 mL (0.083 %) solution for nebulization RxNorm: 369048 1 Vial INH QID 06/26/20 19 2018 Inactive 60/box. This refill negates all other refills of this medication. Please do not fill early. Please do not auto refill. lisinopril 2.5 mg tablet RxNorm: 207714 1 Tablet(s) PO daily 06/21/20 19 2019 Inactive gabapentin 300 mg capsule RxNorm: 834280 1 Capsule(s) PO TID 06/21/20 19 2019 Inactive atorvastatin 20 mg tablet RxNorm: 068186 1 Tablet(s) PO QHS 06/07/202018 Inactive This refill negates all other refills of this medication TRUEplus Lancets 30 gauge RxNorm: 1 Lancets Miscellaneous QAM 05/29/20 19 2018 Inactive 100/box gabapentin 300 mg capsule RxNorm: 074476 1 Capsule(s) PO TID 05/03/20 19 2018 Inactive Flintstones Complete (iron) 18 mg iron chewable tablet RxNorm: 1 Tablet(s) PO daily 04/04/20 19 2021 Inactive This refill negates all other refills of this medication gabapentin 300 mg capsule RxNorm: 035378 1 Capsule(s) PO TID as needed 02/01/202018 Inactive True Metrix Glucose Test Strip RxNorm: 1 Test Strips Miscellaneous QA 02/01/20 19 2018 Inactive 100/container Alcohol Prep Pads RxNorm: 660625 1 Patch TOP QAM 02/01/20 19 2018 Inactive TRUEplus Lancets 30 gauge RxNorm: 1 Lancets Miscellaneous QAM 02/01/20 19 2018 Inactive 100/box lisinopril 2.5 mg tablet RxNorm: 724446 1 Tablet(s) PO daily 12/28/192018 Inactive ranitidine 150 mg tablet RxNorm: 705890 1 Tablet(s) PO BID 10/21/192018 Inactive This refill negates all other refills of this medication albuterol sulfate 2.5 mg/3 mL (0.083 %) solution for nebulization RxNorm: 337435 1 Vial INH QID 10/21/192018 Inactive 60/box. [...] this medication gabapentin 300 mg capsule RxNorm: 450881 1 Capsule(s) PO TID as needed 10/21/192018 Inactive atorvastatin 20 mg tablet RxNorm: 184052 1 Tablet(s) PO QHS 10/21/19 19 2018 Inactive This refill negates all other refills of this medication trazodone 50 mg tablet RxNorm: 736369 1 Tablet(s) PO QHS 10/21/192018 Inactive This refill negates all other refills of this medication Ventolin HFA 90 mcg/actuation aerosol inhaler RxNorm: 239774 2 Puff(s) INH QID 10/21/192018 Inactive Please do not fill early. Please do not auto refill. This refill negates all other refills of this medication Calcium 600-D3 Plus 600 mg calcium-800 unit-50 mg tablet RxNorm: 1 Tablet(s) PO daily take an additonal tablet for itching. 10/21/19 19 2018 Inactive This refill negates all other refills of this medication Singulair 10 mg tablet RxNorm: 219350 1 Tablet(s) PO daily 10/21/192018 Inactive This refill negates all other refills of this medication buspirone 7.5 mg tablet RxNorm: 456828 1 Tablet(s) PO BID 10/21/192018 Inactive This refill negates all other refills of this medication diclofenac sodium 75 mg tablet,delayed release RxNorm: 633690 1 Tablet(s) PO BID 10/21/192018 Inactive This refill negates all other refills of this medication hydrochlorothiazide 12.5 mg tablet RxNorm: 482304 1 Tablet(s) PO QAM 10/21/192018 Inactive metoprolol succinate ER 50 mg tablet,extended release 24 hr RxNorm: 767052 1 Tablet(s) PO daily 10/21/192018 Inactive This refill negates all other refills of this medication levothyroxine 50 mcg tablet RxNorm: 799221 1 Tablet(s) PO daily 10/21/192018 Inactive This refill negates all other refills of this medication cetirizine 10 mg tablet RxNorm: 7502247 1 Tablet(s) PO daily 10/21/192018 Inactive This refill negates all other refills of this medication. Please do not auto refill Flintstones Complete (iron) 18 mg iron chewable tablet RxNorm: 1 Tablet(s) PO daily 10/21/192018 Inactive This refill negates all other refills of this medication buspirone 7.5 mg tablet RxNorm: 554076 1 Tablet(s) PO BID 10/12/19 19 2018 Inactive cetirizine 10 mg tablet RxNorm: 0869479 1 Tablet(s) PO daily 09/28/20 18 2018 Inactive Guaiasorb DM 10 mg-100 mg/5 mL oral liquid RxNorm: 515100 10 Milliliter(s) PO As needed every 4 hr 09/24/20 18 2018 Inactive Vicks Vaporub 4.7 %-1.2 %-2.6 % topical ointment RxNorm: 2461248 1 Application TOP TID 09/24/20 18 2018 Inactive levmetamfetamine 50 mg nasal inhaler RxNorm: 1 Unit(s) NASAL Q3-4H 09/24/20 18 2017 Inactive sertraline 50 mg tablet RxNorm: 732080 1 Tablet(s) PO daily 09/09/20 18 2018 Inactive Please note dose trazodone 50 mg tablet RxNorm: 885728 1 Tablet(s) PO QHS 09/06/20 18 2018 Inactive sertraline 50 mg tablet RxNorm: 709549 1 Tablet(s) PO daily 09/06/20 18 2017 Inactive amoxicillin 500 mg tablet RxNorm: 678916 1 Tablet(s) PO Q12H 08/31/20 18 2017 Inactive albuterol sulfate 2.5 mg/3 mL (0.083 %) solution for nebulization RxNorm: 294229 1 Vial INH QID 08/10/20 18 2018 Inactive 60/box. Please do not fill early. Please do not auto refill. Prozac 10 mg capsule RxNorm: 637943 1 Capsule(s) PO daily 08/09/20 18 2017 Inactive buspirone 7.5 mg tablet RxNorm: 359765 1 Tablet(s) PO BID 08/09/20 18 2018 Inactive gabapentin 300 mg capsule RxNorm: 793447 1 Capsule(s) PO TID as needed 08/01/20 18 2018 Inactive hydrochlorothiazide 12.5 mg tablet RxNorm: 979778 1 Tablet(s) PO QAM 08/01/20 18 2018 Inactive ranitidine 150 mg tablet RxNorm: 065934 1 Tablet(s) PO BID 08/01/20 18 2018 Inactive Macrobid 100 mg capsule RxNorm: 907872 1 Capsule(s) PO Q12H 06/21/20 18 2017 Inactive Singulair 10 mg tablet RxNorm: 507282 1 Tablet(s) PO daily 06/14/20 18 2018 Inactive Ventolin HFA 90 mcg/actuation aerosol inhaler RxNorm: 0147590 2 Puff(s) INH QID 06/14/20 18 2018 Inactive Singulair 10 mg tablet RxNorm: 199457 1 Tablet(s) PO daily 06/14/20 18 2017 Inactive buspirone 7.5 mg tablet RxNorm: 598716 1 Tablet(s) PO BID 06/14/20 18 2017 Inactive Prozac 10 mg capsule RxNorm: 346982 1 Capsule(s) PO daily 06/14/20 18 2017 Inactive Neilmed Pediatric Sinus Rinse Refill packet RxNorm: 1 Unit Dose NASAL PRN 05/31/20 18 2021 Inactive diclofenac sodium 75 mg tablet,delayed release RxNorm: 823358 1 Tablet(s) PO BID 05/31/20 18 2017 Inactive lisinopril 2.5 mg tablet RxNorm: 788294 1 Tablet(s) PO daily 05/31/20 18 2017 Inactive metoprolol succinate ER 50 mg tablet,extended release 24 hr RxNorm: 194964 1 Tablet(s) PO daily 05/31/20 18 2017 Inactive levothyroxine 50 mcg tablet RxNorm: 451091 1 Tablet(s) PO daily 05/31/20 18 2017 Inactive TRUEplus Lancets 30 gauge RxNorm: 1 Lancets Miscellaneous QAM 05/31/20 18 2017 Inactive 100/box Ventolin HFA 90 mcg/actuation aerosol inhaler RxNorm: 206105 2 Puff(s) INH QID 05/31/20 18 2017 Inactive Aleve 220 mg capsule RxNorm: 7343664 1 Capsule(s) PO BID 05/31/20 18 2018 Inactive ranitidine 150 mg tablet RxNorm: 440125 1 Tablet(s) PO BID 05/31/20 18 2017 Inactive gabapentin 300 mg capsule RxNorm: 428690 1 Capsule(s) PO TID as needed 05/31/20 18 2017 Inactive atorvastatin 20 mg tablet RxNorm: 834054 1 Tablet(s) PO QHS 05/31/20 18 2017 Inactive True Metrix Glucose Test Strip RxNorm: 1 Test Strips [facility] QAM 05/31/20 18 2017 Inactive 50/container Calcium 600-D3 Plus 600 mg calcium-800 unit-50 mg tablet RxNorm: 1 Tablet(s) PO daily take an additonal tablet for itching. 05/31/20 18 2017 Inactive hydrochlorothiazide 12.5 mg tablet RxNorm: 056602 1 Tablet(s) PO QAM 05/31/20 18 2017 Inactive Flintstones Complete (iron) 18 mg iron chewable tablet RxNorm: 1 Tablet(s) PO daily 05/31/20 18 2017 Inactive sertraline 50 mg tablet RxNorm: 707684 1 Tablet(s) PO daily 11/28/19 20 2019 Inactive loperamide 2 mg tablet RxNorm: 609920 oral 09/29/20 19 2018 Inactive d-mannose oral powder RxNorm: PO 18 2021 Inactive True Metrix Glucose Meter RxNorm: miscellaneous 08/17/20 19 2018 Inactive Symbicort 160 mcg-4.5 mcg/actuation HFA aerosol inhaler RxNorm: 0286008 2 Puff(s) INH BID 08/17/20 19 2018 Inactive Medication Administered No Medication Administered data Procedures Procedure Codes Date Urinalysis, dip stick CPT-4: 17927 06/21/2019 Tobacco Assessment/Screening CPT-4: TCA Patient Health Questionnaire CPT-4: DPHQ AHA/REBECCA Classification Assessment CPT-4: DAHA 04/25/2019 Controlled Substance Report CPT-4: CTRSU 04/03 Urinalysis, dip stick CPT-4: 46156 03/28/2019 Urinalysis, dip stick CPT-4: 43386 03/28/2019 [id number] CPT-4: 05161 Unknown Gynecology Referral SNOMED CT: 462706353 CPT-4: [id number] Reason For Visit No Reason For Visit data Plan of Care Planned Activity Notes Codes Status Date Referral: Pending Gynecology Referral Informatio n Referral ProcessedReferral: Pending Pulmonology Referral InformationReferralProcessed Referral: Pending Psychiatry Referral InformationReferralInitiatedReferral: Pending Respiratory Services Referral InformationReferralInitiatedReferral: Pending Ophthalmology Referral InformationReferralInitiatedReferral: [facility] WPtel: [address] [place] [address] [address] [address] USWriter placed a call out to the patient to notify her that it has been recommended that she be seenby 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 Patient agreed to be seen, does not have a provider of choice and no transportationissues. Lightning Rod Erector faxed referral and clinical notes to [facility] in [place], [place] near the patient's home. Patient to [...] seen and prefers a provider in the [place] or [facility]. Lightning Rod Erector placed a call out to everyone listed in the area and the only location that was able to accept the patient's insurance was [facility] [place] [address] and spoke with Maylin. Maylin asked that the patient's referral, face sheet and visit notes be faxed to . Lightning Rod Erector faxed over requested documents. Patient appointment confirmation letter generated and mailed to her home address. Patient to call to schedule an appointment.ProcessedReferral: [facility] WPtel: [address] [id number] USPatient notified that it has been advised that she be seen by Neurology. Patient agreed to be seen and prefers to be seen by a provider in the [place], [place] area. Patient denies any concerns with transportation, and prefers to schedule her own appointment. Lightning Rod Erector [facility] [...]
--- OUTSIDE RECORDS SUMMARY | 2023-12-07 02:08 | XMS_ITS | CCD ---
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 Medical Laboratory Manager Name Role Phone Palomo KING, Anna Primary Care Provider Unav ailable Unavailable Chronic Care Management Unavaila ble Summary Purpose DataExchange Insurance Providers Payer name Policy type / Coverage type Covered libertarian ID Effective Begin Date Effective End Date [employer] [facility] [id number] Unknown Unknown Family history Mother Diagnosis Age [...] 05/31/2018 Education level Unknown Some High School 10th05/31/20180099RirpswmmojYyxgksjRtcrutstvc13/29/2018Tobacco historySNOMED CT: 664670525Btd never smoked or chewed onwcomq1105/31/2018Alcohol historySNOMED CT: 325113943Uqleu drinks vvpgpgi3705/31/2018Has the patient ever used illegal drugs? UnknownHas never used illegal drugs05/31/2018DNR Order/ Advanced Directive UnknownFull Code05/31/2018 Allergies, Adverse Reactions, Alerts Substance Reaction Codes Entered Date Inactivated Date Status *No known food allergies Iblvfwb8809/06/2018No Inactive DateActiveMethylprednisolonehivesRxNorm: 6902 09/06/2018No Inactive DateActive Problems Condition Codes Effective Dates Condition St atus Adjustment disorder with mixed anxiety a nd depressed mood ICD-10: F43.23 ICD-9: 309.2812ActiveAsthmaICD-10: J45.909 ICD-9: 493.9011ActiveEssential (primary) hypertensionICD-10: I10 ICD-9: 401.901ActiveObstructive sleep apnea (adult) (pediatric)ICD-10: G47.33 ICD-9: 327.2309/ActiveType 2 diabetes mellitus without complicationsICD- 10: E11.9 ICD-9: 250.0001ActiveDiarrheaICD-10: R19.7 ICD-9: 787.9112ActiveChronic kidney disease, unspecifiedICD-10: N18.9 ICD-9: 585.909ActiveHypertensive heart disease with heart failureICD-10: I11.0 ICD-9: 402.9107/ActiveMixed incontinenceICD-10: N39.46 ICD-9: 788.3308ActiveGERD (gastroesophageal reflux disease)ICD-10: K21.9 ICD-9: 530.8112ActiveAcute upper respiratory infection, unspecifiedICD- 10: J06.9 ICD-9: 465.912ActiveHypothyroidism, unspecifiedICD-10: E03.9 ICD-9: 244.912ActiveHyperlipidemia, unspecifiedICD-10: E78.5 ICD-9: 272.408ActiveApnea, not elsewhere classifiedICD-10: R06.81 ICD-9: 786.0305ActiveEncounter for immunizationICD-10: Z23 ICD-9: V03.907/ActiveEncounter for screening, unspecifiedICD-10: Z13.9 ICD-9: V82.912ActivePolyneuropathy, unspecifiedICD-10: G62.9 ICD-9: 356.908ActivePatient Not SeenICD-10: UXZ.01 ICD-9: XZ0.107ActiveEncounter for screening for malignant neoplasm of cervixICD-10: Z12.4 ICD-9: V76.207ActiveOther prison (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ICD-10: Z79.899 ICD-9: V58.6907ActiveBody mass index (BMI) 50-59.9 , adultICD-10: Z68.43 ICD-9: V85.4308ActiveChest pain, unspecifiedICD-10: R07.9 ICD-9: 786.50011/29/2018ActiveEncounter for preprocedural cardiovascular examinationICD-10: Z01.810 ICD-9: V72.8106ActiveDyspnea, unspecifiedICD-10: R06.00 ICD-9: 786.0902/08/2019ActivePost-traumatic stress disorder, unspecifiedICD-10: F43.10 ICD-9: 309.8112ActiveWheezingICD-10: R06.2 ICD-9: 786.0708/08/2018ActiveAbnormal electrocardiogram [ECG] [EKG]ICD-10: R94.31 ICD-9: 794.31005/30/2018ActiveEdema, unspecifiedICD-10: R60.9 ICD-9: 782.310ActiveHeadacheICD-10: R51 ICD-9: 784.001ActiveLong term (current) use of non-steroidal anti- inflammatories (NSAID)ICD-10: Z79.1 ICD-9: V58.6409Active Medications Medication Codes Instructions Start Date Stop Date Status Fill Instructions cetirizine 10 mg tablet RxNorm: 8587304 1 Tablet(s) PO daily 10/20/192019 Inactive This refill negates all other refills of this medication. Please do not auto refill Singulair 10 mg tablet RxNorm: 307280 1 Tablet(s) PO daily 10/20/192019 Inactive This refill negates all other refills of this medication gabapentin 300 mg capsule RxNorm: 250442 1 Capsule(s) PO TID 10/20/192019 Inactive lisinopril 2.5 mg tablet RxNorm: 273474 1 Tablet(s) PO daily 10/20/192019 Inactive levothyroxine 50 mcg tablet RxNorm: 640114 1 Tablet(s) PO daily 10/20/1913/ 2020 Inactive This refill negates all other refills of this medication hydrochlorothiazide 25 mg tablet RxNorm: 798274 1 Tablet(s) Oral every day 10/17/19 20 2019 Inactive fenugreek seed extract 500 mg capsule RxNorm: 1 Capsule(s) Oral three times a day 10/17/19 20 2021 Inactive Alcohol Prep Pads RxNorm: 995107 1 Patch TOP QAM 10/16/19 20 2020 Inactive loperamide 2 mg tablet RxNorm: 871240 1 Tablet(s) Oral as needed take one [...] 2019 Inactive hydrochlorothiazide 25 mg tablet RxNorm: 971379 1 Tablet(s) Oral every day 09/19/20 19 2019 Inactive Sudafed 12 Hour 120 mg tablet,extended release RxNorm: 9877181 1 Tablet(s) Oral every 12 hours as needed 09/11/20 19 2018 Inactive omeprazole 20 mg capsule,delayed release RxNorm: 894050 1 Capsule(s) Oral every day 09/07/20 19 2019 Inactive Sudafed 12 Hour 120 mg tablet,extended release RxNorm: 9225824 1 Tablet(s) Oral every 12 hours as needed 09/04/20 19 2018 Inactive pantoprazole 40 mg tablet,delayed release RxNorm: 270967 1 Tablet(s) Oral every day 08/24/20 19 2018 Inactive discontinue any other H2Blkr. and PPI albuterol sulfate 2.5 mg/3 mL (0.083 %) solution for nebulization RxNorm: 913744 1 Vial Inhalation every four hours as needed as needed for dyspnea 08/17/20 19 2019 Inactive 60/box. This refill negates all other refills of this medication. Please do not fill early. Please do not auto refill. Symbicort 160 mcg-4.5 mcg/actuation HFA aerosol inhaler RxNorm: 6927197 2 Puff(s) INH BID 08/17/20 No Stop Date Active Alcohol Prep Pads RxNorm: 922003 1 Patch TOP QAM 08/17/20 19 2019 Inactive True Metrix Glucose Test Strip RxNorm: 1 Test Strips Miscellaneous QAM 08/09/20 19 2019 Inactive 100/container Ventolin HFA 90 mcg/actuation aerosol inhaler RxNorm: 518251 2 Puff(s) INH QID 08/09/20 19 2019 Inactive Please do not fill early. Please do not auto refill. This refill negates all other refills of this medication atorvastatin 40 mg tablet RxNorm: 924881 1 Tablet(s) Oral every day 07/04/20 19 2019 Inactive levmetamfetamine 50 mg nasal inhaler RxNorm: 1 Unit(s) NASAL Q3-4H Do not use more than every 3 hours or 8 times/24hours 06/26/20 19 2021 Inactive Please do not auto refill. This refill negates all other refills of this medication diclofenac sodium 75 mg tablet,delayed release RxNorm: 201004 1 Tablet(s) PO BID 06/26/20 19 2019 Inactive This refill negates all other refills of this medication buspirone 7.5 mg tablet RxNorm: 854332 1 Tablet(s) PO BID 06/26/20 19 2020 Inactive This refill negates all other refills of this medication hydrochlorothiazide 12.5 mg tablet RxNorm: 672726 1 Tablet(s) PO QAM 06/26/20 19 2019 Inactive Ventolin HFA 90 mcg/actuation aerosol inhaler RxNorm: 208639 2 Puff(s) INH QID 06/26/20 19 2018 Inactive Please do not fill early. Please do not auto refill. This refill negates all other refills of this medication Singulair 10 mg tablet RxNorm: 367254 1 Tablet(s) PO daily 06/26/20 19 2019 Inactive This refill negates all other refills of this medication cetirizine 10 mg tablet RxNorm: 9269283 1 Tablet(s) PO daily 06/26/20 19 2019 Inactive This refill negates all other refills of this medication. Please do not auto refill levothyroxine 50 mcg tablet RxNorm: 679939 1 Tablet(s) PO daily 06/26/20 19 2019 Inactive This refill negates all other refills of this medication ranitidine 150 mg tablet RxNorm: 835150 1 Tablet(s) PO BID 06/26/20 19 2018 Inactive This refill negates all other refills of this medication Calcium 600-D3 Plus (mag-zinc) 600 mg calcium-800 unit-50 mg tablet RxNorm: 1 Tablet(s) PO daily take an additonal tablet for itching. 06/26/20 19 2018 Inactive This refill negates all other refills of this medication albuterol sulfate 2.5 mg/3 mL (0.083 %) solution for nebulization RxNorm: 176104 1 Vial INH QID 06/26/20 19 2018 Inactive 60/box. This refill negates all other refills of this medication. Please do not fill early. Please do not auto refill. lisinopril 2.5 mg tablet RxNorm: 580789 1 Tablet(s) PO daily 06/21/20 19 2019 Inactive gabapentin 300 mg capsule RxNorm: 085353 1 Capsule(s) PO TID 06/21/20 19 2019 Inactive atorvastatin 20 mg tablet RxNorm: 437660 1 Tablet(s) PO QHS 06/07/20 19 2018 Inactive This refill negates all other refills of this medication TRUEplus Lancets 30 gauge RxNorm: 1 Lancets Miscellaneous QAM 05/29/20 2018 Inactive 100/box gabapentin 300 mg capsule RxNorm: 482847 1 Capsule(s) PO TID 05/03/202018 Inactive Flmarksaranbree Complete (iron) 18 mg iron chewable tablet RxNorm: 1 Tablet(s) PO daily 04/04/202021 Inactive This refill negates all other refills of this medication gabapentin 300 mg capsule RxNorm: 160695 1 Capsule(s) PO TID as needed 02/01/202018 Inactive True Metrix Glucose Test Strip RxNorm: 1 Test Strips Miscellaneous QAM 02/01/20 19 2018 Inactive 100/container Alcohol Prep Pads RxNorm: 374813 1 Patch TOP QAM 02/01/202018 Inactive TRUEplus Lancets 30 gauge RxNorm: 1 Lancets Miscellaneous QAM 02/01/20 19 2018 Inactive 100/box lisinopril 2.5 mg tablet RxNorm: 711200 1 Tablet(s) PO daily 12/28/192018 Inactive ranitidine 150 mg tablet RxNorm: 002422 1 Tablet(s) PO BID 10/21/192018 Inactive This refill negates all other refills of this medication albuterol sulfate 2.5 mg/3 mL (0.083 %) solution for nebulization RxNorm: 848860 1 Vial INH QID 10/21/192018 Inactive 60/box. [...] this medication gabapentin 300 mg capsule RxNorm: 311101 1 Capsule(s) PO TID as needed 10/21/192018 Inactive atorvastatin 20 mg tablet RxNorm: 074735 1 Tablet(s) PO QHS 10/21/192018 Inactive This refill negates all other refills of this medication trazodone 50 mg tablet RxNorm: 042819 1 Tablet(s) PO QHS 10/21/19 19 2018 Inactive This refill negates all other refills of this medication Ventolin HFA 90 mcg/actuation aerosol inhaler RxNorm: 360574 2 Puff(s) INH QID 10/21/19 19 2018 [...] this medication Singulair 10 mg tablet RxNorm: 967519 1 Tablet(s) PO daily 10/21/192018 Inactive This refill negates all other refills of this medication buspirone 7.5 mg tablet RxNorm: 422319 1 Tablet(s) PO BID 10/21/192018 Inactive This refill negates all other refills of this medication diclofenac sodium 75 mg tablet,delayed release RxNorm: 013901 1 Tablet(s) PO BID 10/21/19 19 2018 Inactive This refill negates all other refills of this medication hydrochlorothiazide 12.5 mg tablet RxNorm: 433062 1 Tablet(s) PO QAM 10/21/192018 Inactive metoprolol succinate ER 50 mg tablet,extended release 24 hr RxNorm: 534565 1 Tablet(s) PO daily 10/21/192018 Inactive This refill negates all other refills of this medication levothyroxine 50 mcg tablet RxNorm: 704437 1 Tablet(s) PO daily 10/21/192018 Inactive This refill negates all other refills of this medication cetirizine 10 mg tablet RxNorm: 0333714 1 Tablet(s) PO daily 10/21/19 19 2018 Inactive This refill negates all other refills of this medication. Please do not auto refill Flintstones Complete (iron) 18 mg iron chewable tablet RxNorm: 1 Tablet(s) PO daily 10/21/19 19 2018 Inactive This refill negates all other refills of this medication buspirone 7.5 mg tablet RxNorm: 688797 1 Tablet(s) PO BID 10/12/19 19 2018 Inactive cetirizine 10 mg tablet RxNorm: 9642981 1 Tablet(s) PO daily 09/28/20 18 2018 Inactive Guaiasorb DM 10 mg-100 mg/5 mL oral liquid RxNorm: 649171 10 Milliliter(s) PO As needed every 4 hr 09/24/20 18 2018 Inactive Vicks Vaporub 4.7 %-1.2 %-2.6 % topical ointment RxNorm: 1173623 1 Application TOP TID 09/24/20 18 2018 Inactive levmetamfetamine 50 mg nasal inhaler RxNorm: 1 Unit(s) NASAL Q3-4H 09/24/20 18 2017 Inactive sertraline 50 mg tablet RxNorm: 617429 1 Tablet(s) PO daily 09/09/20 18 2018 Inactive Please note dose trazodone 50 mg tablet RxNorm: 496603 1 Tablet(s) PO QHS 09/06/20 18 2018 Inactive sertraline 50 mg tablet RxNorm: 984440 1 Tablet(s) PO daily 09/06/20 18 2017 Inactive amoxicillin 500 mg tablet RxNorm: 154723 1 Tablet(s) PO Q12H 08/31/20 18 2017 Inactive albuterol sulfate 2.5 mg/3 mL (0.083 %) solution for nebulization RxNorm: 476958 1 Vial INH QID 08/10/20 18 2018 Inactive 60/box. Please do not fill early. Please do not auto refill. Prozac 10 mg capsule RxNorm: 014061 1 Capsule(s) PO daily 08/09/20 18 2017 Inactive buspirone 7.5 mg tablet RxNorm: 229152 1 Tablet(s) PO BID 08/09/20 18 2018 Inactive gabapentin 300 mg capsule RxNorm: 827818 1 Capsule(s) PO TID as needed 08/01/20 18 2018 Inactive hydrochlorothiazide 12.5 mg tablet RxNorm: 466547 1 Tablet(s) PO QAM 08/01/20 18 2018 Inactive ranitidine 150 mg tablet RxNorm: 803975 1 Tablet(s) PO BID 08/01/20 18 2018 Inactive Macrobid 100 mg capsule RxNorm: 704092 1 Capsule(s) PO Q12H 06/21/20 18 2017 Inactive Singulair 10 mg tablet RxNorm: 916851 1 Tablet(s) PO daily 06/14/20 18 2018 Inactive Ventolin HFA 90 mcg/actuation aerosol inhaler RxNorm: 5583864 2 Puff(s) INH QID 06/14/20 18 2018 Inactive Singulair 10 mg tablet RxNorm: 504980 1 Tablet(s) PO daily 06/14/20 18 2017 Inactive buspirone 7.5 mg tablet RxNorm: 522543 1 Tablet(s) PO BID 06/14/20 18 2017 Inactive Prozac 10 mg capsule RxNorm: 438952 1 Capsule(s) PO daily 06/14/20 18 2017 Inactive Neilmed Pediatric Sinus Rinse Refill packet RxNorm: 1 Unit Dose NASAL PRN 05/31/20 18 2021 Inactive diclofenac sodium 75 mg tablet,delayed release RxNorm: 719157 1 Tablet(s) PO BID 05/31/20 18 2017 Inactive lisinopril 2.5 mg tablet RxNorm: 712382 1 Tablet(s) PO daily 05/31/20 18 2017 Inactive metoprolol succinate ER 50 mg tablet,extended release 24 hr RxNorm: 690538 1 Tablet(s) PO daily 05/31/20 18 2017 Inactive levothyroxine 50 mcg tablet RxNorm: 183163 1 Tablet(s) PO daily 05/31/20 18 2017 Inactive TRUEplus Lancets 30 gauge RxNorm: 1 Lancets Miscellaneous QAM 05/31/20 18 2017 Inactive 100/box Ventolin HFA 90 mcg/actuation aerosol inhaler RxNorm: 037016 2 Puff(s) INH QID 05/31/20 18 2017 Inactive Aleve 220 mg capsule RxNorm: 9560389 1 Capsule(s) PO BID 05/31/20 18 2018 Inactive ranitidine 150 mg tablet RxNorm: 783948 1 Tablet(s) PO BID 05/31/20 18 2017 Inactive gabapentin 300 mg capsule RxNorm: 141924 1 Capsule(s) PO TID as needed 05/31/20 18 2017 Inactive atorvastatin 20 mg tablet RxNorm: 700170 1 Tablet(s) PO QHS 05/31/20 18 2017 Inactive True Metrix Glucose Test Strip RxNorm: 1 Test Strips Miscellaneous QAM 05/31/20 18 2017 Inactive 50/container Calcium 600-D3 Plus 600 mg calcium-800 unit-50 mg tablet RxNorm: 1 Tablet(s) PO daily take an additonal tablet for itching. 05/31/20 18 2017 Inactive hydrochlorothiazide 12.5 mg tablet RxNorm: 038829 1 Tablet(s) PO QAM 05/31/20 18 2017 Inactive Flintstones Complete (iron) 18 mg iron chewable tablet RxNorm: 1 Tablet(s) PO daily 05/31/20 18 2017 Inactive sertraline 50 mg tablet RxNorm: 446292 1 Tablet(s) PO daily 11/28/19 20 2019 Inactive d-mannose oral powder RxNorm: PO 18 2021 Inactive True Metrix Glucose Meter RxNorm: miscellaneous 08/17/20 19 2018 Inactive loperamide 2 mg tablet RxNorm: 335179 oral 09/29/20 19 2018 Inactive Symbicort 160 mcg-4.5 mcg/actuation HFA aerosol inhaler RxNorm: 5561426 2 Puff(s) INH BID 08/17/20 19 2018 Inactive Medication Administered No Medication Administered data Procedures Procedure Codes Date [place] Assessment CPT-4: DSWA 10/03 Hypertension CPT-4: HTN 10/17/2019 Fall Risk Assessment SNOMED CT: 34022082 4 CPT-4: DFRA09/19/2019Functional AssessmentCPT-4: DFA111/20/2018Urinalysis, dip stickCPT-4: 4941315Tobacco Assessment/ScreeningCPT-4: TCA05/24/2019 Patient Health QuestionnaireCPT-4: DPHQ05/24/2019AHA/REBECCA Classification AssessmentCPT-4: DAHA04/25/2019Controlled Substance ReportCPT-4: CTRSU04/25/2019 Urinalysis, dip stickCPT-4: 518174503/28/2019Urinalysis, dip stickCPT-4: 78101 03/28/20192537O1I-QronilwrwdihfvdIOM-0: 81107ZusetocK9F-HmfjjbwymndmjefFOH-2: [address]: 050770461 CPT-4: T65Webcqkz Reason For Visit No Reason For Visit data Plan of Care Planned Activity Notes Codes Status Date Referral: Pending Gynecology Referral Informatio n Referral ProcessedReferral: Pending Pulmonology Referral InformationReferralProcessed Referral: Pending Psychiatry Referral InformationReferralInitiatedReferral: Pending Respiratory Services Referral InformationReferralInitiatedReferral: Pending Ophthalmology Referral InformationReferralInitiatedReferral: [facility]: [address] [place] [address] [id number] USWriter placed a call out to the patient to notify her that it has been recommended that she be seenby 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 Patient agreed to be seen, does not have a provider of choice and no transportationissues. Product Marketing Consultant faxed referral and clinical notes to [facility] in [place], [place] near the patient's home. Patient to [...] seen and prefers a provider in the [place] or [place] area. Product Marketing Consultant placed a call out to everyone listed in the area and the only location that was able to accept the patient's insurance was [place] [address] [place] [address] and spoke with Maylin. Maylin asked that the patient's referral, face sheet and visit notes be faxed to . Product Marketing Consultant faxed over requested documents. Patient appointment confirmation letter generated and mailed to her home address. Patient to call to schedule an appointment.ProcessedReferral: [facility] W[facility]: [address] [place] [address] [place], [place] [id number] USPatient notified that it has been advised that she be seen by Neurology. Patient agreed to be seen and prefers to be seen by a provider in the [place], [place] area. Patient denies any concerns with transportation, and prefers to schedule her own appointment. Product Marketing Consultant placed a call out to [facility] and spoke with Neeraj P: who confirmed that their office is able to acceptnew patients and the patient's insurance. After confirming the providers fax number, radio script writer faxed over the patient's referral, [...]
--- OUTSIDE RECORDS SUMMARY | 2023-12-07 02:08 | XMS_ITS | CCD ---
Author Name Leena Culver NP Address [address] [place] [address] [place] [address] Phone Organization [facility] Phone Care Team Providers Care Spanish Moss Picker Name Role Phone Anna Culver NP Primary Care Provider Unav ailable Unavailable Chronic Care Management Unavaila ble Summary Purpose DataExchange Insurance Providers Payer name Policy type / Coverage type Covered democrat ID Effective Begin Date Effective End Date SUKI MAYO [id number] Unknown Unknown Family history Mother Diagnosis Age [...] 05/31/2018 Education level Unknown Some High School 10th05/31/20181132IyfiiamfzxPzuvugrVcycgbnwly69/29/2018Tobacco historySNOMED CT: 125990182Yeg never smoked or chewed letfxym8505/31/2018Alcohol historySNOMED CT: 129574458Cdnur drinks kkterjx0705/31/2018Has the patient ever used illegal drugs? UnknownHas never used illegal drugs05/31/2018DNR Order/ Advanced Directive UnknownFull Code05/31/2018 Allergies, Adverse Reactions, Alerts Substance Reaction Codes Entered Date Inactivated Date Status *No known food allergies Xrjziht4909/06/2018No Inactive DateActiveMethylprednisolonehivesRxNorm: 6902 09/06/2018No Inactive DateActive Problems Condition Codes Effective Dates Condition St atus Chronic kidney disease, unspecified ICD- 10: N18.9 ICD-9: 585.909ActiveHypertensive heart disease with heart failureICD-10: I11.0 ICD-9: 402.9107/ActiveMixed incontinenceICD-10: N39.46 ICD-9: 788.3308ActiveType 2 diabetes mellitus without complicationsICD- 10: E11.9 ICD-9: 250.0001/10/2018ActiveGERD (gastroesophageal reflux disease)ICD-10: K21.9 ICD-9: 530.8112ActiveAcute upper respiratory infection, unspecifiedICD- 10: J06.9 ICD-9: 465.912ActiveEssential (primary) hypertensionICD-10: I10 ICD-9: 401.901ActiveHypothyroidism, unspecifiedICD-10: E03.9 ICD-9: 244.912ActiveHyperlipidemia, unspecifiedICD-10: E78.5 ICD-9: 272.408ActiveObstructive sleep apnea (adult) (pediatric)ICD-10: G47.33 ICD-9: 327.2309ActiveApnea, not elsewhere classifiedICD-10: R06.81 ICD-9: 786.0305ActiveEncounter for immunizationICD-10: Z23 ICD-9: V03.907/ActiveEncounter for screening, unspecifiedICD-10: Z13.9 ICD-9: V82.912ActiveUnspecified asthma, uncomplicatedICD-10: J45.909 ICD-9: 493.9011ActivePolyneuropathy, unspecifiedICD-10: G62.9 ICD-9: 356.908/ActivePatient Not SeenICD-10: UXZ.01 ICD-9: XZ0.107ActiveEncounter for screening for malignant neoplasm of cervixICD-10: Z12.4 ICD-9: V76.207/ActiveOther termite renewal inspector (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ICD-10: Z79.899 ICD-9: V58.6907ActiveBody mass [...] 09/19/202019 Inactive hydrochlorothiazide 25 mg tablet RxNorm: 019290 1 Tablet(s) Oral every day 09/19/202019 Inactive Sudafed 12 Hour 120 mg tablet,extended release RxNorm: 9665508 1 Tablet(s) Oral every 12 hours as needed 09/11/202018 Inactive omeprazole 20 mg capsule,delayed release RxNorm: 902984 1 Capsule(s) Oral every day 09/07/202019 Inactive Sudafed 12 Hour 120 mg tablet,extended release RxNorm: 1500342 1 Tablet(s) Oral every 12 hours as needed 09/04/20 19 2018 Inactive pantoprazole 40 mg tablet,delayed release RxNorm: 415086 1 Tablet(s) Oral every day 08/24/20 19 2018 Inactive discontinue any other H2Blkr. and PPI Alcohol Prep Pads RxNorm: 804584 1 Patch TOP QAM 08/17/20 19 2019 Inactive albuterol sulfate 2.5 mg/3 mL (0.083 %) solution for nebulization RxNorm: 994944 1 Vial Inhalation every four hours as needed as needed for dyspnea 08/17/202019 Inactive 60/box. This refill negates all other refills of this medication. Please do not fill early. Please do not auto refill. Symbicort 160 mcg-4.5 mcg/actuation HFA aerosol inhaler RxNorm: 7760737 2 Puff(s) INH BID 08/17/20 No Stop Date Active True Metrix Glucose Test Strip RxNorm: 1 Test Strips Miscellaneous QAM 08/09/20 19 2019 Inactive 100/container Ventolin HFA 90 mcg/actuation aerosol inhaler RxNorm: 467545 2 Puff(s) INH QID 08/09/20 19 2019 Inactive Please do not fill early. Please do not auto refill. This refill negates all other refills of this medication atorvastatin 40 mg tablet RxNorm: 625994 1 Tablet(s) Oral every day 07/04/20 19 2019 Inactive hydrochlorothiazide 12.5 mg tablet RxNorm: 312751 1 Tablet(s) PO QAM 06/26/20 19 2019 Inactive levmetamfetamine 50 mg nasal inhaler RxNorm: 1 Unit(s) NASAL Q3-4H Do not use more than every 3 hours or 8 times/24hours 06/26/20 19 2021 Inactive Please do not auto refill. This refill negates all other refills of this medication Singulair 10 mg tablet RxNorm: 141618 1 Tablet(s) PO daily 06/26/20 19 2019 Inactive This refill negates all other refills of this medication cetirizine 10 mg tablet RxNorm: 8232600 1 Tablet(s) PO daily 06/26/20 19 2019 Inactive This refill negates all other refills of this medication. Please do not auto refill levothyroxine 50 mcg tablet RxNorm: 108292 1 Tablet(s) PO daily 06/26/20 19 2019 Inactive This refill negates all other refills of this medication diclofenac sodium 75 mg tablet,delayed release RxNorm: 315195 1 Tablet(s) PO BID 06/26/20 19 2019 Inactive This refill negates all other refills of this medication buspirone 7.5 mg tablet RxNorm: 639385 1 Tablet(s) PO BID 06/26/202020 Inactive This refill negates all other refills of this medication Calcium 600-D3 Plus (mag-zinc) 600 mg calcium-800 unit-50 mg tablet RxNorm: 1 Tablet(s) PO daily take an additonal tablet for itching. 06/26/20 19 2018 Inactive This refill negates all other refills of this medication Ventolin HFA 90 mcg/actuation aerosol inhaler RxNorm: 743572 2 Puff(s) INH QID 06/26/20 19 2018 Inactive Please do not fill early. Please do not auto refill. This refill negates all other refills of this medication ranitidine 150 mg tablet RxNorm: 849947 1 Tablet(s) PO BID 06/26/20 19 2018 Inactive This refill negates all other refills of this medication albuterol sulfate 2.5 mg/3 mL (0.083 %) solution for nebulization RxNorm: 697927 1 Vial INH QID 06/26/20 19 2018 Inactive 60/box. This refill negates all other refills of this medication. Please do not fill early. Please do not auto refill. lisinopril 2.5 mg tablet RxNorm: 225549 1 Tablet(s) PO daily 06/21/20 19 2019 Inactive gabapentin 300 mg capsule RxNorm: 315875 1 Capsule(s) PO TID 06/21/20 19 2019 Inactive atorvastatin 20 mg tablet RxNorm: 292694 1 Tablet(s) PO QHS 06/07/20 19 2018 Inactive This refill negates all other refills of this medication TRUEplus Lancets 30 gauge RxNorm: 1 Lancets Miscellaneous QAM 05/29/20 19 2018 Inactive 100/box gabapentin 300 mg capsule RxNorm: 417086 1 Capsule(s) PO TID 05/03/20 19 2018 Inactive Flintstones Complete (iron) 18 mg iron chewable tablet RxNorm: 1 Tablet(s) PO daily 04/04/202021 Inactive This refill negates all other refills of this medication gabapentin 300 mg capsule RxNorm: 081235 1 Capsule(s) PO TID as needed 02/01/20 19 2018 Inactive True Metrix Glucose Test Strip RxNorm: 1 Test Strips Miscellaneous QAM 02/01/20 19 2018 Inactive 100/container Alcohol Prep Pads RxNorm: 518816 1 Patch TOP QAM 02/01/20 19 2018 Inactive TRUEplus Lancets 30 gauge RxNorm: 1 Lancets Miscellaneous QAM 02/01/20 19 2018 Inactive 100/box lisinopril 2.5 mg tablet RxNorm: 415142 1 Tablet(s) PO daily 12/28/19 19 2018 Inactive ranitidine 150 mg tablet RxNorm: 199573 1 Tablet(s) PO BID 10/21/192018 Inactive This refill negates all other refills of this medication albuterol sulfate 2.5 mg/3 mL (0.083 %) solution for nebulization RxNorm: 203022 1 Vial INH QID 10/21/192018 Inactive 60/box. [...] this medication gabapentin 300 mg capsule RxNorm: 475119 1 Capsule(s) PO TID as needed 10/21/19 19 2018 Inactive atorvastatin 20 mg tablet RxNorm: 838819 1 Tablet(s) PO QHS 10/21/19 19 2018 Inactive This refill negates all other refills of this medication trazodone 50 mg tablet RxNorm: 363873 1 Tablet(s) PO QHS 10/21/19 19 2018 Inactive This refill negates all other refills of this medication Ventolin HFA 90 mcg/actuation aerosol inhaler RxNorm: 155429 2 Puff(s) INH QID 10/21/192018 Inactive Please do not fill early. Please do not auto refill. This refill negates all other refills of this medication Calcium 600-D3 Plus 600 mg calcium-800 unit-50 mg tablet RxNorm: 1 Tablet(s) PO daily take an additonal tablet for itching. 10/21/192018 Inactive This refill negates all other refills of this medication Singulair 10 mg tablet RxNorm: 416424 1 Tablet(s) PO daily 10/21/192018 Inactive This refill negates all other refills of this medication buspirone 7.5 mg tablet RxNorm: 936045 1 Tablet(s) PO BID 10/21/192018 Inactive This refill negates all other refills of this medication diclofenac sodium 75 mg tablet,delayed release RxNorm: 550904 1 Tablet(s) PO BID 10/21/192018 Inactive This refill negates all other refills of this medication hydrochlorothiazide 12.5 mg tablet RxNorm: 126695 1 Tablet(s) PO QAM 10/21/192018 Inactive metoprolol succinate ER 50 mg tablet,extended release 24 hr RxNorm: 113524 1 Tablet(s) PO daily 10/21/192018 Inactive This refill negates all other refills of this medication levothyroxine 50 mcg tablet RxNorm: 641190 1 Tablet(s) PO daily 10/21/1920 04/17/ 2019 Inactive This refill negates all other refills of this medication cetirizine 10 mg tablet RxNorm: 7486225 1 Tablet(s) PO daily 10/21/19 19 2018 Inactive This refill negates all other refills of this medication. Please do not auto refill Flintstones Complete (iron) 18 mg iron chewable tablet RxNorm: 1 Tablet(s) PO daily 10/21/19 19 2018 Inactive This refill negates all other refills of this medication buspirone 7.5 mg tablet RxNorm: 754789 1 Tablet(s) PO BID 10/12/19 19 2018 Inactive cetirizine 10 mg tablet RxNorm: 4314426 1 Tablet(s) PO daily 09/28/20 18 2018 Inactive Guaiasorb DM 10 mg-100 mg/5 mL oral liquid RxNorm: 795199 10 Milliliter(s) PO As needed every 4 hr 09/24/20 18 2018 Inactive Vicks Vaporub 4.7 %-1.2 %-2.6 % topical ointment RxNorm: 0299814 1 Application TOP TID 09/24/20 18 2018 Inactive levmetamfetamine 50 mg nasal inhaler RxNorm: 1 Unit(s) NASAL Q3-4H 09/24/20 18 2017 Inactive sertraline 50 mg tablet RxNorm: 857971 1 Tablet(s) PO daily 09/09/20 18 2018 Inactive Please note dose trazodone 50 mg tablet RxNorm: 047330 1 Tablet(s) PO QHS 09/06/20 18 2018 Inactive sertraline 50 mg tablet RxNorm: 202427 1 Tablet(s) PO daily 09/06/20 18 2017 Inactive amoxicillin 500 mg tablet RxNorm: 656412 1 Tablet(s) PO Q12H 08/31/20 18 2017 Inactive albuterol sulfate 2.5 mg/3 mL (0.083 %) solution for nebulization RxNorm: 015396 1 Vial INH QID 08/10/20 18 2018 Inactive 60/box. Please do not fill early. Please do not auto refill. Prozac 10 mg capsule RxNorm: 798519 1 Capsule(s) PO daily 08/09/20 18 2017 Inactive buspirone 7.5 mg tablet RxNorm: 020134 1 Tablet(s) PO BID 08/09/20 18 2018 Inactive gabapentin 300 mg capsule RxNorm: 694826 1 Capsule(s) PO TID as needed 08/01/20 18 2018 Inactive hydrochlorothiazide 12.5 mg tablet RxNorm: 003213 1 Tablet(s) PO QAM 08/01/20 18 2018 Inactive ranitidine 150 mg tablet RxNorm: 121592 1 Tablet(s) PO BID 08/01/20 18 2018 Inactive Macrobid 100 mg capsule RxNorm: 077062 1 Capsule(s) PO Q12H 06/21/20 18 2017 Inactive Singulair 10 mg tablet RxNorm: 463453 1 Tablet(s) PO daily 06/14/20 18 2018 Inactive Ventolin HFA 90 mcg/actuation aerosol inhaler RxNorm: 2650150 2 Puff(s) INH QID 06/14/20 18 2018 Inactive Singulair 10 mg tablet RxNorm: 771411 1 Tablet(s) PO daily 06/14/20 18 2017 Inactive buspirone 7.5 mg tablet RxNorm: 127459 1 Tablet(s) PO BID 06/14/20 18 2017 Inactive Prozac 10 mg capsule RxNorm: 002346 1 Capsule(s) PO daily 06/14/20 18 2017 Inactive Neilmed Pediatric Sinus Rinse Refill packet RxNorm: 1 Unit Dose NASAL PRN 05/31/20 18 2021 Inactive diclofenac sodium 75 mg tablet,delayed release RxNorm: 025056 1 Tablet(s) PO BID 05/31/20 18 2017 Inactive lisinopril 2.5 mg tablet RxNorm: 803180 1 Tablet(s) PO daily 05/31/20 18 2017 Inactive metoprolol succinate ER 50 mg tablet,extended release 24 hr RxNorm: 538966 1 Tablet(s) PO daily 05/31/20 18 2017 Inactive levothyroxine 50 mcg tablet RxNorm: 626733 1 Tablet(s) PO daily 05/31/20 18 2017 Inactive TRUEplus Lancets 30 gauge RxNorm: 1 Lancets Miscellaneous QAM 05/31/20 18 2017 Inactive 100/box Ventolin HFA 90 mcg/actuation aerosol inhaler RxNorm: 204813 2 Puff(s) INH QID 05/31/20 18 2017 Inactive Aleve 220 mg capsule RxNorm: 3193710 1 Capsule(s) PO BID 05/31/20 18 2018 Inactive ranitidine 150 mg tablet RxNorm: 793354 1 Tablet(s) PO BID 05/31/20 18 2017 Inactive gabapentin 300 mg capsule RxNorm: 251441 1 Capsule(s) PO TID as needed 05/31/20 18 2017 Inactive atorvastatin 20 mg tablet RxNorm: 154882 1 Tablet(s) PO QHS 05/31/20 18 2017 Inactive True Metrix Glucose Test Strip RxNorm: 1 Test Strips Miscellaneous QA 05/31/20 18 2017 Inactive 50/container Calcium 600-D3 Plus 600 mg calcium-800 unit-50 mg tablet RxNorm: 1 Tablet(s) PO daily take an additonal tablet for itching. 05/31/20 18 2017 Inactive hydrochlorothiazide 12.5 mg tablet RxNorm: 129485 1 Tablet(s) PO QAM 05/31/20 18 2017 Inactive Flintstones Complete (iron) 18 mg iron chewable tablet RxNorm: 1 Tablet(s) PO daily 05/31/20 18 2017 Inactive sertraline 50 mg tablet RxNorm: 010313 1 Tablet(s) PO daily 11/28/19 20 2019 Inactive loperamide 2 mg tablet RxNorm: 261301 oral 09/29/20 19 2018 Inactive d-mannose oral powder RxNorm: PO 18 2021 Inactive True Metrix Glucose Meter RxNorm: miscellaneous 08/17/202018 Inactive Symbicort 160 mcg-4.5 mcg/actuation HFA aerosol inhaler RxNorm: 3110156 2 Puff(s) INH BID 08/17/202018 Inactive Medication Administered No Medication Administered data Procedures Procedure Codes Date Fall Risk Assessment [facility] CT: 03762153 4 CPT-4: DFRA09/19/2019Functional AssessmentCPT-4: DFA111/20/2018Functional Assessment ADLs - Patient needs direct assistance, [...] cuing, or supervision, to perform the following safely:/transportationCPT-4: DFAUnknown 09/19/2019Fall Risk Assessment Two or more falls in the past year?/No, Has there been a fall with injury in the last year?/No, Plan:/Monitor gait and balance PRN, no current action needed [facility] CT: 334641127 CPT-4: XRFARtazwto92/18/2019Urinalysis, dip stickCPT-4: 593042206/21/2019Tobacco Assessment/ScreeningCPT-4: TCA05/24/2019Patient Health QuestionnaireCPT-4: DPHQ 05/24/2019AHA/REBECCA Classification AssessmentCPT-4: DAHA04/25/2019Controlled Substance ReportCPT-4: CTRSU04/25/2019Urinalysis, dip stickCPT-4: 11365 03/28/2019Urinalysis, dip stickCPT-4: 064807303/28/20199249X2N-IhwuyuthiivqwofNTD-3: 13519YdqwyrtBqlckqfrgc ReferralSNOMED CT: 482311910 CPT-4: S12Rmukszu Vital Signs Date Vital 09/19/2019 Blood Pressure 1: 128/82 Code: 8480-6 BMI: 58.8 Code: 44637-8 Heart Rate 1: 98 bpm Height: 4'11 Code: 8302-2 Respiratory Rate: 18 bpm SpO2: 98% Temperature: 37.5 (C) / 99.5 (F) Weight: 291 lbs Code: 69523-9 Reason For Visit Reason For Visit Effective Dates Notes hypertension 09/19/2019 diabetes mellitus 09/19/2019 Encounters Encounter Performer Location Location Address Codes Magdi e HOME VISIT EST PATIENT Diagnosis: Type 2 diabetes mellitus without complications[ICD10: E11.9] Diagnosis: Hypertensive heart disease with heart failure[ICD10: I11.0] Diagnosis: Chronic kidney disease, unspecified[ICD10: N18.9] Diagnosis: Mixed incontinence[ICD10: N39.46]Anna Bourgeois [address] [place] [address] 89175MVL-3: [id number] Plan of Care Planned Activity Notes Codes Status Date Patient Education: Patient Medication Summary Bbqhznmeo54/18/2019Patient Education: DcufzuxkibmoXajznimky27/18/2019Patient Education: MgobmmwmHwirugwvi55/18/2019Appointment: Sudha Hernadez WPtel: [address] [facility] [id number]: Sudha Hernadez WPtel: [address] [facility] [id number]: Sandip Charlene WPtel: [address] [facility] [id number]: Enedelia Delgado45Appointment: Charlene Oropeza WPtel: [address] [facility] [id number]: Rasta Palafox WPtel: [address] [facility] [id number]: Rasta Palafox WPtel: [address] [facility] [address] [id number]: Rasta Palafox WPtel: [address] [facility] [address] [id number]: Rasta Palafox WPtel: [address] [facility] [address] [id number]: Pending Gynecology Referral InformationReferral ProcessedReferral: Pending Pulmonology Referral InformationReferralProcessed Referral: Pending Psychiatry Referral InformationReferralInitiatedReferral: Pending Respiratory Services Referral InformationReferralInitiatedReferral: Pending Ophthalmology Referral InformationReferralInitiatedReferral: [facility] WPtel: [address] [place] [address] USWriter placed a call out to the patient to notify her that it has been recommended that she be seenby 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 Patient agreed to be seen, does not have a provider of choice and no transportationissues. Remote Control Assembler faxed referral and clinical notes to [facility] in [place], [place] near the patient's home. Patient to [...] and prefers a provider in the [place] or [place] area. Remote Control Assembler placed a call out to everyone listed in the area and the only location that was able to accept the patient's insurance was [place] [address] [place] [address] and spoke with Maylin. Maylin asked that the patient's referral, face sheet and visit notes be faxed to . Remote Control Assembler faxed over requested documents. Patient appointment confirmation letter generated and mailed to her home address. Patient to call to schedule an appointment.ProcessedReferral: [facility] WPtel: [address] [facility] [address] [id number] USPatient notified that it has been advised that she be seen by Neurology. Patient agreed to be seen and prefers to be seen by a provider in the [place], [place] area. Patient denies any concerns with transportation, and prefers to schedule her own appointment. Remote Control Assembler placed a call out to [facility] and spoke with Neeraj P: who confirmed that their office is able to acceptnew patients and the patient's insurance. After confirming the providers fax number, typewriter ribbon winder faxed over the patient's referral, and most [...]
--- OUTSIDE RECORDS SUMMARY | 2023-12-07 02:08 | XMS_ITS | CCD ---
Author Name Leena Culver NP Address [address] [place] [address] [place] [address] Phone Organization [facility] Phone Care Team Providers Care Clinical Dietitian Name Role Phone Anna Culver NP Primary Care Provider Unav ailable Unavailable Chronic Care Management Unavaila ble Summary Purpose DataExchange Insurance Providers Payer name Policy type / Coverage type Covered constitution party ID Effective Begin Date Effective End Date SUKI MAYO [id number] Unknown Unknown Family history Mother Diagnosis Age [...] 05/31/2018 Education level Unknown Some High School 10th05/31/20186172JbbniunsghNabmvthLywxoiqyit86/29/2018Tobacco historySNOMED CT: 799365055Tep never smoked or chewed xvxopht1105/31/2018Alcohol historySNOMED CT: 720153816Zbrso drinks oyfnmpl4405/31/2018Has the patient ever used illegal drugs? UnknownHas never used illegal drugs05/31/2018DNR Order/ Advanced Directive UnknownFull Code05/31/2018 Allergies, Adverse Reactions, Alerts Substance Reaction Codes Entered Date Inactivated Date Status *No known food allergies Zwoqvae6109/06/2018No Inactive DateActiveMethylprednisolonehivesRxNorm: 6902 09/06/2018No Inactive DateActive Problems Condition Codes Effective Dates Condition St atus Adjustment disorder with mixed anxiety a nd depressed mood ICD-10: F43.23 ICD-9: 309.28111/06/2017ActiveAsthmaICD-10: J45.909 ICD-9: 493.9011ActiveEssential (primary) hypertensionICD-10: I10 ICD-9: 401.901ActiveObstructive sleep apnea (adult) (pediatric)ICD-10: G47.33 ICD-9: 327.2309ActiveType 2 diabetes mellitus without complicationsICD- 10: E11.9 ICD-9: 250.0001ActiveDiarrheaICD-10: R19.7 ICD-9: 787.9112ActiveChronic kidney disease, unspecifiedICD-10: N18.9 ICD-9: 585.909ActiveHypertensive heart disease with heart failureICD-10: I11.0 ICD-9: 402.9107ActiveMixed incontinenceICD-10: N39.46 ICD-9: 788.3308ActiveGERD (gastroesophageal reflux disease)ICD-10: K21.9 ICD-9: 530.8112ActiveAcute upper respiratory infection, unspecifiedICD- 10: J06.9 ICD-9: 465.912ActiveHypothyroidism, unspecifiedICD-10: E03.9 ICD-9: 244.912ActiveHyperlipidemia, unspecifiedICD-10: E78.5 ICD-9: 272.408ActiveApnea, not elsewhere classifiedICD-10: R06.81 ICD-9: 786.0305ActiveEncounter for immunizationICD-10: Z23 ICD-9: V03.907ActiveEncounter for screening, unspecifiedICD-10: Z13.9 ICD-9: V82.912ActivePolyneuropathy, unspecifiedICD-10: G62.9 ICD-9: 356.908ActivePatient Not SeenICD-10: UXZ.01 ICD-9: XZ0.107ActiveEncounter for screening for malignant neoplasm of cervixICD-10: Z12.4 ICD-9: V76.207/ActiveOther detention (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ICD-10: Z79.899 ICD-9: V58.6907ActiveBody mass index (BMI) 50-59.9 , adultICD-10: Z68.43 ICD-9: V85.4308ActiveChest pain, unspecifiedICD-10: R07.9 ICD-9: 786.5002ActiveEncounter for preprocedural cardiovascular examinationICD-10: Z01.810 ICD-9: V72.8106/ActiveDyspnea, unspecifiedICD-10: R06.00 ICD-9: 786.0905ActivePost-traumatic stress disorder, unspecifiedICD-10: F43.10 ICD-9: 309.8112ActiveWheezingICD-10: R06.2 ICD-9: 786.0711ActiveAbnormal electrocardiogram [ECG] [EKG]ICD-10: R94.31 ICD-9: 794.3108ActiveEdema, unspecifiedICD-10: R60.9 ICD-9: 782.310ActiveHeadacheICD-10: R51 ICD-9: 784.001ActiveLong term (current) use of non-steroidal anti- inflammatories (NSAID)ICD-10: Z79.1 ICD-9: V58.6409Active Medications Medication Codes Instructions Start Date Stop Date Status Fill Instructions hydrochlorothiazide 25 mg tablet RxNorm: 052682 1 Tablet(s) Oral every day 10/17/19 20 2019 Inactive fenugreek seed extract 500 mg capsule RxNorm: 1 Capsule(s) Oral three times a day 10/17/192021 Inactive Alcohol Prep Pads RxNorm: 470269 1 Patch TOP QAM 10/16/192020 Inactive loperamide 2 mg tablet RxNorm: 905120 1 Tablet(s) Oral as needed take one [...] 2019 Inactive hydrochlorothiazide 25 mg tablet RxNorm: 740826 1 Tablet(s) Oral every day 09/19/202019 Inactive Sudafed 12 Hour 120 mg tablet,extended release RxNorm: 4727368 1 Tablet(s) Oral every 12 hours as needed 09/11/20 19 2018 Inactive omeprazole 20 mg capsule,delayed release RxNorm: 620050 1 Capsule(s) Oral every day 09/07/20 19 2019 Inactive Sudafed 12 Hour 120 mg tablet,extended release RxNorm: 1575822 1 Tablet(s) Oral every 12 hours as needed 09/04/20 19 2018 Inactive pantoprazole 40 mg tablet,delayed release RxNorm: 987214 1 Tablet(s) Oral every day 08/24/202018 Inactive discontinue any other H2Blkr. and PPI albuterol sulfate 2.5 mg/3 mL (0.083 %) solution for nebulization RxNorm: 518190 1 Vial Inhalation every four hours as needed as needed for dyspnea 08/17/202019 Inactive 60/box. This refill negates all other refills of this medication. Please do not fill early. Please do not auto refill. Symbicort 160 mcg-4.5 mcg/actuation HFA aerosol inhaler RxNorm: 8416278 2 Puff(s) INH BID 08/17/20 No Stop Date Active Alcohol Prep Pads RxNorm: 632939 1 Patch TOP QAM 08/17/20 19 2019 Inactive True Metrix Glucose Test Strip RxNorm: 1 Test Strips Miscellaneous QAM 08/09/20 19 2019 Inactive 100/container Ventolin HFA 90 mcg/actuation aerosol inhaler RxNorm: 670602 2 Puff(s) INH QID 08/09/20 19 2019 Inactive Please do not fill early. Please do not auto refill. This refill negates all other refills of this medication atorvastatin 40 mg tablet RxNorm: 561541 1 Tablet(s) Oral every day 07/04/20 19 2019 Inactive levmetamfetamine 50 mg nasal inhaler RxNorm: 1 Unit(s) NASAL Q3-4H Do not use more than every 3 hours or 8 times/24hours 06/26/20 19 2021 Inactive Please do not auto refill. This refill negates all other refills of this medication Singulair 10 mg tablet RxNorm: 239572 1 Tablet(s) PO daily 06/26/20 19 2019 Inactive This refill negates all other refills of this medication cetirizine 10 mg tablet RxNorm: 7209229 1 Tablet(s) PO daily 06/26/20 19 2019 Inactive This refill negates all other refills of this medication. Please do not auto refill levothyroxine 50 mcg tablet RxNorm: 434037 1 Tablet(s) PO daily 06/26/20 19 2019 Inactive This refill negates all other refills of this medication diclofenac sodium 75 mg tablet,delayed release RxNorm: 726415 1 Tablet(s) PO BID 06/26/20 19 2019 Inactive This refill negates all other refills of this medication buspirone 7.5 mg tablet RxNorm: 740003 1 Tablet(s) PO BID 06/26/20 19 2020 Inactive This refill negates all other refills of this medication hydrochlorothiazide 12.5 mg tablet RxNorm: 579196 1 Tablet(s) PO QAM 06/26/20 19 2019 Inactive Ventolin HFA 90 mcg/actuation aerosol inhaler RxNorm: 386629 2 Puff(s) INH QID 06/26/20 19 2018 Inactive Please do not fill early. Please do not auto refill. This refill negates all other refills of this medication ranitidine 150 mg tablet RxNorm: 313434 1 Tablet(s) PO BID 06/26/20 19 2018 Inactive This refill negates all other refills of this medication Calcium 600-D3 Plus (mag-zinc) 600 mg calcium-800 unit-50 mg tablet RxNorm: 1 Tablet(s) PO daily take an additonal tablet for itching. 06/26/20 19 2018 Inactive This refill negates all other refills of this medication albuterol sulfate 2.5 mg/3 mL (0.083 %) solution for nebulization RxNorm: 633684 1 Vial INH QID 06/26/20 19 2018 Inactive 60/box. This refill negates all other refills of this medication. Please do not fill early. Please do not auto refill. lisinopril 2.5 mg tablet RxNorm: 441112 1 Tablet(s) PO daily 06/21/20 19 2019 Inactive gabapentin 300 mg capsule RxNorm: 007471 1 Capsule(s) PO TID 06/21/20 19 2019 Inactive atorvastatin 20 mg tablet RxNorm: 232413 1 Tablet(s) PO QHS 06/07/20 19 2018 Inactive This refill negates all other refills of this medication TRUEplus Lancets 30 gauge RxNorm: 1 Lancets Miscellaneous QAM 05/29/20 19 2018 Inactive 100/box gabapentin 300 mg capsule RxNorm: 266666 1 Capsule(s) PO TID 05/03/20 19 2018 Inactive Flnickolas Complete (iron) 18 mg iron chewable tablet RxNorm: 1 Tablet(s) PO daily 04/04/20 19 2021 Inactive This refill negates all other refills of this medication gabapentin 300 mg capsule RxNorm: 824856 1 Capsule(s) PO TID as needed 02/01/20 19 2018 Inactive True Metrix Glucose Test Strip RxNorm: 1 Test Strips Miscellaneous QAM 02/01/20 19 2018 Inactive 100/container Alcohol Prep Pads RxNorm: 778225 1 Patch TOP QAM 02/01/20 19 2018 Inactive TRUEplus Lancets 30 gauge RxNorm: 1 Lancets Miscellaneous QAM 02/01/20 19 2018 Inactive 100/box lisinopril 2.5 mg tablet RxNorm: 916554 1 Tablet(s) PO daily 12/28/19 19 2018 Inactive ranitidine 150 mg tablet RxNorm: 533305 1 Tablet(s) PO BID 10/21/192018 Inactive This refill negates all other refills of this medication albuterol sulfate 2.5 mg/3 mL (0.083 %) solution for nebulization RxNorm: 829469 1 Vial INH QID 10/21/19 19 2018 [...] this medication gabapentin 300 mg capsule RxNorm: 798163 1 Capsule(s) PO TID as needed 10/21/19 19 2018 Inactive atorvastatin 20 mg tablet RxNorm: 965616 1 Tablet(s) PO QHS 10/21/19 19 2018 Inactive This refill negates all other refills of this medication trazodone 50 mg tablet RxNorm: 881147 1 Tablet(s) PO QHS 10/21/19 19 2018 Inactive This refill negates all other refills of this medication Ventolin HFA 90 mcg/actuation aerosol inhaler RxNorm: 379011 2 Puff(s) INH QID 10/21/192018 Inactive Please do not fill early. Please do not auto refill. This refill negates all other refills of this medication Calcium 600-D3 Plus 600 mg calcium-800 unit-50 mg tablet RxNorm: 1 Tablet(s) PO daily take an additonal tablet for itching. 10/21/192018 Inactive This refill negates all other refills of this medication Singulair 10 mg tablet RxNorm: 613045 1 Tablet(s) PO daily 10/21/192018 Inactive This refill negates all other refills of this medication buspirone 7.5 mg tablet RxNorm: 512616 1 Tablet(s) PO BID 10/21/192018 Inactive This refill negates all other refills of this medication diclofenac sodium 75 mg tablet,delayed release RxNorm: 174673 1 Tablet(s) PO BID 10/21/19 19 2018 Inactive This refill negates all other refills of this medication hydrochlorothiazide 12.5 mg tablet RxNorm: 092910 1 Tablet(s) PO QAM 10/21/19 19 2018 Inactive metoprolol succinate ER 50 mg tablet,extended release 24 hr RxNorm: 397041 1 Tablet(s) PO daily 10/21/192018 Inactive This refill negates all other refills of this medication levothyroxine 50 mcg tablet RxNorm: 543214 1 Tablet(s) PO daily 10/21/19 19 2018 Inactive This refill negates all other refills of this medication cetirizine 10 mg tablet RxNorm: 9443395 1 Tablet(s) PO daily 10/21/192018 Inactive This refill negates all other refills of this medication. Please do not auto refill Flintstones Complete (iron) 18 mg iron chewable tablet RxNorm: 1 Tablet(s) PO daily 10/21/192018 Inactive This refill negates all other refills of this medication buspirone 7.5 mg tablet RxNorm: 155357 1 Tablet(s) PO BID 10/12/192018 Inactive cetirizine 10 mg tablet RxNorm: 0708514 1 Tablet(s) PO daily 09/28/202018 Inactive Guaiasorb DM 10 mg-100 mg/5 mL oral liquid RxNorm: 179765 10 Milliliter(s) PO As needed every 4 hr 09/24/202018 Inactive Vicks Vaporub 4.7 %-1.2 %-2.6 % topical ointment RxNorm: 5889612 1 Application TOP TID 09/24/20 18 2018 Inactive levmetamfetamine 50 mg nasal inhaler RxNorm: 1 Unit(s) NASAL Q3-4H 09/24/20 18 2017 Inactive sertraline 50 mg tablet RxNorm: 486450 1 Tablet(s) PO daily 09/09/20 18 2018 Inactive Please note dose trazodone 50 mg tablet RxNorm: 704947 1 Tablet(s) PO QHS 09/06/20 18 2018 Inactive sertraline 50 mg tablet RxNorm: 685659 1 Tablet(s) PO daily 09/06/20 18 2017 Inactive amoxicillin 500 mg tablet RxNorm: 064103 1 Tablet(s) PO Q12H 08/31/20 18 2017 Inactive albuterol sulfate 2.5 mg/3 mL (0.083 %) solution for nebulization RxNorm: 622969 1 Vial INH QID 08/10/20 18 2018 Inactive 60/box. Please do not fill early. Please do not auto refill. Prozac 10 mg capsule RxNorm: 646757 1 Capsule(s) PO daily 08/09/20 18 2017 Inactive buspirone 7.5 mg tablet RxNorm: 576990 1 Tablet(s) PO BID 08/09/20 18 2018 Inactive gabapentin 300 mg capsule RxNorm: 106122 1 Capsule(s) PO TID as needed 08/01/20 18 2018 Inactive hydrochlorothiazide 12.5 mg tablet RxNorm: 869087 1 Tablet(s) PO QAM 08/01/20 18 2018 Inactive ranitidine 150 mg tablet RxNorm: 087381 1 Tablet(s) PO BID 08/01/20 18 2018 Inactive Macrobid 100 mg capsule RxNorm: 951470 1 Capsule(s) PO Q12H 06/21/20 18 2017 Inactive Singulair 10 mg tablet RxNorm: 272274 1 Tablet(s) PO daily 06/14/20 18 2018 Inactive Ventolin HFA 90 mcg/actuation aerosol inhaler RxNorm: 3173036 2 Puff(s) INH QID 06/14/20 18 2018 Inactive Singulair 10 mg tablet RxNorm: 374172 1 Tablet(s) PO daily 06/14/20 18 2017 Inactive buspirone 7.5 mg tablet RxNorm: 889178 1 Tablet(s) PO BID 06/14/20 18 2017 Inactive Prozac 10 mg capsule RxNorm: 142359 1 Capsule(s) PO daily 06/14/20 18 2017 Inactive Neilmed Pediatric Sinus Rinse Refill packet RxNorm: 1 Unit Dose NASAL PRN 05/31/20 18 2021 Inactive diclofenac sodium 75 mg tablet,delayed release RxNorm: 701765 1 Tablet(s) PO BID 05/31/20 18 2017 Inactive lisinopril 2.5 mg tablet RxNorm: 353533 1 Tablet(s) PO daily 05/31/20 18 2017 Inactive metoprolol succinate ER 50 mg tablet,extended release 24 hr RxNorm: 980642 1 Tablet(s) PO daily 05/31/20 18 2017 Inactive levothyroxine 50 mcg tablet RxNorm: 936670 1 Tablet(s) PO daily 05/31/20 18 2017 Inactive TRUEplus Lancets 30 gauge RxNorm: 1 Lancets Miscellaneous QAM 05/31/20 18 2017 Inactive 100/box Ventolin HFA 90 mcg/actuation aerosol inhaler RxNorm: 356091 2 Puff(s) INH QID 05/31/20 18 2017 Inactive Aleve 220 mg capsule RxNorm: 9253926 1 Capsule(s) PO BID 05/31/20 18 2018 Inactive ranitidine 150 mg tablet RxNorm: 798096 1 Tablet(s) PO BID 05/31/20 18 2017 Inactive gabapentin 300 mg capsule RxNorm: 045721 1 Capsule(s) PO TID as needed 05/31/20 18 2017 Inactive atorvastatin 20 mg tablet RxNorm: 705495 1 Tablet(s) PO QHS 05/31/20 18 2017 Inactive True Metrix Glucose Test Strip RxNorm: 1 Test Strips Miscellaneous QA 05/31/20 18 2017 Inactive 50/container Calcium 600-D3 Plus 600 mg calcium-800 unit-50 mg tablet RxNorm: 1 Tablet(s) PO daily take an additonal tablet for itching. 05/31/20 18 2017 Inactive hydrochlorothiazide 12.5 mg tablet RxNorm: 803263 1 Tablet(s) PO QAM 05/31/20 18 2017 Inactive Flintstones Complete (iron) 18 mg iron chewable tablet RxNorm: 1 Tablet(s) PO daily 05/31/20 18 2017 Inactive sertraline 50 mg tablet RxNorm: 217532 1 Tablet(s) PO daily 11/28/19 20 2019 Inactive d-mannose oral powder RxNorm: PO 18 2021 Inactive True Metrix Glucose Meter RxNorm: miscellaneous 08/17/20 19 2018 Inactive loperamide 2 mg tablet RxNorm: 950539 oral 09/29/20 19 2018 Inactive Symbicort 160 mcg-4.5 mcg/actuation HFA aerosol inhaler RxNorm: 8265397 2 Puff(s) INH BID 08/17/20 19 2018 Inactive Medication Administered No Medication Administered data Results Observation Observation Code Item Item Code Result Date S ervice Location URIC ACID 33028 Uric Acid 3084-1 6.1 mg/dL 10/18/2019 [facility] [address] [place], [place] [address]ZSBZEQED CBC W/ DIFF [id number] K/ul10/18/2019 [facility] [address] [place], [place] [address]PLLGMVTY CBC W/ DIFF AWK21873YEC256-60.41 M/uL10/18/2019 [facility] [address] [place], [place] [address]XUREHLZH CBC W/ DIFF QSA38207Falqxfxvgl795-233.1 g/dL10/18/2019 [facility] [address] [place], [place] [address]BMTVAAWX CBC W/ DIFF EBA14641Qalxqjolmr6919-516.6 %10/18/2019 [facility] [address] [place] [place] [address]CLOZTZFN CBC W/ DIFF ANK22925DFS813-014.1 fL10/18/2019 [facility] [address] [place] [address]ENNAUCXW CBC W/ DIFF YIE99836UTH754-671.5 pg10/18/2019 [facility] [address] [place] [address]ZHUFPSEZ CBC W/ DIFF ZLC43479BEET073-341.1 g/dL10/18/2019 [facility] [address] [place] [address]KBXSGAQU CBC W/ DIFF LIC47723CNU428-172.6 %10/18/2019 [facility] [address] [place] [address]SWYQSTPK CBC W/ DIFF WIW75013Zezuqkhi Qeyvq773-8683 K/uL10/18/2019 [facility] [address] [place] [address]WNYGONZI CBC W/ DIFF [id number] fL10/18/2019 [facility] [address] [place] [address]WXQRGMBD CBC W/ DIFF GWS39526Vrnxrodhuqv %770-871.7 %10/18/2019 [facility] [address] [place] [place] [address]SOVFLWTR CBC W/ DIFF BLA13759Wcnyhoiaysi %736-922.0 %10/18/2019 [facility] [address] [place] [address]FYHRSJDG CBC W/ DIFF XIZ60807Elnsngawv %5905-54.9 %10/18/2019 [facility] [address] [place] [place] [address]YXHJQIWL CBC W/ DIFF PJN57555Bhfiqirfnir %713-80.7 %10/18/2019 [facility] [address] [place] [address]PYKNLCIW CBC W/ DIFF DCZ93063Zsrchhhwe%706-20.7 %10/18/2019 [facility] [address] [place] [address]BKWPYXTS CBC W/ DIFF ISV12687Jgzinnfy Dxjnrstovw204-28704 /ul 10/18/2019 [facility] [address] [facility] [place] [address]ONBVLMDV CBC W/ DIFF DDU42815Mrbnsuto Ixbjkcbtzr00005-44532 /ul 10/18/2019 [facility] [address] [place] [address]ODFQELKK CBC W/ DIFF ZPG41191Kgtbcmau Hhqovqyx759-3536 /ul 10/18/2019 [facility] [address] [facility] [place] [address]SNOJNRRX CBC W/ DIFF PBM87044Jmjlbyua Ftrxrfgzjr158-780 /ul 10/18/2019 [facility] [address] [facility] [address]PVXHXNSZ CBC W/ DIFF CLH29221Rzfgftsr Czroguwn659-538 /ul10/18/2019 [facility] [address] [facility] [place] [address]V7E-PDTVTAKXBIYAYPD1550-7Llhmx HGB E7X81263-85.0 %10/18/2019 [facility] [address] [place], [place] [address]F2O-RHOHTPKAOCYKHGS9128-6cWU87371-1213 mg/dL10/18/2019 [facility] [address] [place], [place] [address]CGAE 14 (METABOLIC PANEL)22193Ihukcyk5910-9207 mg/dL10/18/2019 [facility] [address] [place], [place] [address]ZOUP 14 (METABOLIC PANEL)70[address]HSE3641-70 mg/dL10/18/2019 [facility] [address] [place], [place] [address]AIHD 14 (METABOLIC PANEL)01337Qnergpvxzo0382-18.7 mg/dL10/18/2019 [facility] [address] [place], [place] [address]PQXN 14 (METABOLIC PANEL)97545ODH/Creat Tfxha2298-669.201 [facility] [address] [place], [place] [address]JWQN 14 (METABOLIC PANEL)04667QVC Gfgyhfezv17823-608 mL/min/1.73m2 10/18/2019 [facility] [address] [place], [place] [address]PUKF 14 (METABOLIC PANEL)99067MFG Estimated for Americans [address] mL/min/1.39y40010/18/2019 [facility] [address] [place], [place] [address]WLKQ 14 (METABOLIC PANEL)24007Pnxigc0429-4348 mmol/L10/18/[address] [facility] [address] [place] [address]PQZH 14 (METABOLIC PANEL)35240Cmbpfgdtc7823-49.2 mmol/L10/18/2019 [facility] [address] [place], [place] [address]PVHN 14 (METABOLIC PANEL)50361Gqkhiqtc6775-5684 mmol/L10/18/[address] [facility] [address] [place] [address]QLIZ 14 (METABOLIC PANEL)49555Chnkf MS85642-351 mmol/L10/18/[address] [facility] [address] [place] [address]SOFG 14 (METABOLIC PANEL)74107Rnhoa Xio1886-99.2 mEq/L10/18/2019 [facility] [address] [place] [address]ZUGF 14 (METABOLIC PANEL)22418Hfwrougcwt Serum Lhmjmaswuf67794-3375 mOsm/kg10/18/2019 [facility] [address] [place] [address]ZPKJ 14 (METABOLIC PANEL)07892Nycztdx94095-62.4 g/dL10/18/2019 [facility] [address] [place] [address]OFJH 14 (METABOLIC PANEL)32134Coasz Abaikkn0708-07.0 g/dL10/18/[address] [facility] [address] [place] [address]HWZB 14 (METABOLIC PANEL)42624Jwzlostb8344-70.6 g/dL10/18/[address] [facility] [address] [place] [address]THLH 14 (METABOLIC PANEL)60963Fsjijwf/Globulin Thnuu3305-89.9 10/18/2019 [facility] [address] [place] [address]HTLO 14 (METABOLIC PANEL)28837GPW KMCN4341-253.00 U/L10/18/2019 [facility] [address] [place] [address]SLLM 14 (METABOLIC PANEL)74118ILAC/JSW7455-924 U/L10/18/2019 [facility] [address] [place] [address]MYVV 14 (METABOLIC PANEL)94309RGGP/OMX0864-570 U/L10/18/2019 [facility] [address] [place] [address] 149[address]XLMR 14 (METABOLIC PANEL)637[address]Udihn Ostwhtbaa2240-13.6 mg/dL 10/18/2019 [facility] [address] [place], [place] [address]PAZO 14 (METABOLIC PANEL)19[address]Xyfntnf66869-88.2 mg/dL10/18/2019 [facility] [address] [place] [address]FDUI 14 (METABOLIC PANEL)75[address]Pfelgzunj Ugizmir89323-87.8 mg/dL 10/18/2019 [facility] [address] [place] [place] [address]PXN02902YFQ14582-41.380 uIU/mL10/18/2019 [facility] [address] [place] [address]NVKLKHSDJL19990Viprvvbvje46444-472 mg/dL10/18/2019 [facility] [address] [place] [address] Procedures Procedure Codes Date Newton Fany Assessment CPT-4: DSWA 10/03 Hypertension CPT-4: HTN 10/17/2019 Hypertension Hypertension Follow Up Plan/Lifestyle modification weight reduction, Hypertension Follow Up Plan/Repeat BP measurement within one month, Hypertension Follow Up Plan/Lifestyle modification including reduce salt intakeCPT-4: OEYEiollpp23/15/2020Semmes Fany AssessmentCPT-4: DSWA10/17/2019Glucose Blood TestCPT-4: 2279671Fall Risk AssessmentSNOMED CT: 679605608 CPT-4: DFRA09/19/2019Functional AssessmentCPT-4: DFA111/20/2018Urinalysis, dip stickCPT-4: 5366079Tobacco Assessment/ScreeningCPT-4: TCA05/24/2019 Patient Health QuestionnaireCPT-4: DPHQ05/24/2019AHA/REBECCA Classification AssessmentCPT-4: DAHA04/25/2019Controlled Substance ReportCPT-4: CTRSU04/25/2019 Urinalysis, dip stickCPT-4: 202111103/28/2019Urinalysis, dip stickCPT-4: 03162 03/28/20196160K4S-TtmpcfppntcfxdrNVE-8: 99807IclzynfU0B-EmnpztcabrpelexXDA-6: [address]: 495701327 CPT-4: J22Gcaybwp Vital Signs Date Vital 10/17/2019 Blood Pressure 1: 110/62 Code: 8480-6 BMI: 59.6 Code: 47974-0 Heart Rate 1: 101 bpm Height: 4'11 Code: 8302-2 Random Blood Sugar: 144/NaN Respiratory Rate: 16 bpm SpO2: 99% Temperature: 36.7 (C) / 98.0 (F) Weight: 295 lbs Code: 39705-5 Reason For Visit Reason For Visit Effective Dates Notes hypertension 10/17/2019 diabetes mellitus 10/17/2019 Encounters Encounter Performer Location Location Address Codes Magdi e HOME VISIT EST PATIENT Diagnosis: Essential (primary) hypertension[ICD10: I10] Diagnosis: Type 2 diabetes mellitus without complications[ICD10: E11.9] Diagnosis: Obstructive sleep apnea (adult) (pediatric)[ICD10: G47.33] Diagnosis: Asthma[ICD10: J45.909] Diagnosis: Adjustment disorder with mixed anxiety and depressed mood[ICD10: F43.23]Anna Bk [address] [place] [address]OIQ-7: [id number] Plan of Care Planned Activity Notes Codes Status Date Visit Plan: t N18.9-585.9 Chroni c kidney disease, unspecified avoid nephro toxic drugs, 07/04/2019 BUN 17 creatinine 0.7 GFR 93 Patient denies ability to drink water stating that it dehydrates her- doesn't know diagnosis,but indicates she was told this by previous [...] at varied times throughout the day-BS log leftwith patient 07/04/2019 Hgb A1C 5.6 10/17/2019 Inocente Soares 04/11-instructed on good daily foot care routine follow up with Dr. Gonzales, podiatry-wanting diabetic shoes-advised to have clinical immunologist send something to office for signature-pt to have clinical immunologist call office for instruction to send paperwork ophthalmology referral initiated labs drawn, results pending G47.33-327.23 Obstructive sleep apnea (adult) (pediatric) J45.909493.90 Asthma Recent ED visit for difficulty breathing-records requested continue inhalers and nebulizer wears cpap every night, believes that is helpful 10/22/2019 Dr. Garcia, pulmonology for chronic sleep apnea and asthma F43.23 309.28 Adjustment disorder with mixed anxiety and depressedmood [facility] has first appt today 10/17/2019Patient Education: Patient Medication AigmhwfBhcnpjrlu22/15/2020 Patient Education: DrndvbmUkqkbjzlw52/15/2020Appointment: Anna Culver WPtel: [address] [place], [place] [id number]: Sudha Hernadez WPtel: [address] [place] [address] [id number]: Sudha Hernadez WPtel: [address] [facility] [id number] [id number]: Charlene Oropeza WPtel: [address] [facility] [id number]: Enedelia Delgado45Appointment: Charlene Oropeza WPtel: [address] [facility] [id number]: Rasta Palafox WPtel: [address] [facility] [id number]: Rasta Palafox WPtel: [address] [facility] [id number]: Rasta Palafox WPtel: 1900 [facility] [address] [id number]: Rasta Palafox WPtel: 1900 [facility] [address] [id number]: Pending Gynecology Referral InformationReferral ProcessedReferral: Pending Pulmonology Referral InformationReferralProcessed Referral: Pending Psychiatry Referral InformationReferralInitiatedReferral: Pending Respiratory Services Referral InformationReferralInitiatedReferral: Pending Ophthalmology Referral InformationReferralInitiatedReferral: [facility] WPtel: 615 [facility] 200 [facility] USWriter placed a call out to the patient to notify her that it has been recommended that she be seenby 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 Patient agreed to be seen, does not have a provider of choice and no transportationissues. Social Secretary faxed referral and clinical notes to [facility] in [place], [place] near the patient's home. Patient to [...] seen and prefers a provider in the [place] or [facility]. Social Secretary placed a call out to everyone listed in the area and the only location that was able to accept the patient's insurance was [place] [address] [place] [address] and spoke with Maylin. Maylin asked that the patient's referral, face sheet and visit notes be faxed to . Social Secretary faxed over requested documents. Patient appointment confirmation letter generated and mailed to her home address. Patient to call to schedule an appointment.ProcessedReferral: [facility] WPtel: [address] [facility] [address] IczlpmSL[address]25 USPatient notified that it has been advised that she be seen by Neurology. Patient agreed to be seen and prefers to be seen by a provider in the [place], [place] area. Patient denies any concerns with transportation, and prefers to schedule her own appointment. Social Secretary placed a call out to [facility] and spoke with Neeraj [...] 07/04/2019 Hgb A1C 5.6 10/17/2019 Inocente Soares 04/11-instructed on good daily foot care routine follow up with Dr. Gonzales, podiatry-wanting diabetic shoes-advised to have clinical immunologist send something to office for signature-pt to have clinical immunologist call office for instruction to send paperwork ophthalmology referral initiated labs drawn, results pending [id number] Obstructive sleep apnea (adult) (pediatric); [id number] Asthma Recent ED visit for difficulty breathing-records requested continue inhalers and nebulizer wears cpap every night, believes that is helpful 10/22/2019 Dr. Garcia, pulmonology for chronic sleep apnea and asthma [id number] Adjustment disorder with mixed anxiety and depressed mood [facility] has first appt today 10/17/2019 Medical Equipment No Medical Equipment data Advance Directives No Advance Directive data
--- OUTSIDE RECORDS SUMMARY | 2023-12-07 02:08 | XMS_ITS | CCD ---
Author Name Leena Culver NP Address [address] [place] [address] [place] [address] Phone Organization [facility] Phone Care Team Providers Care [employer] Name Role Phone Anna Culver NP Primary Care Provider Unav ailable Unavailable Chronic Care Management Unavaila ble Summary Purpose DataExchange Insurance Providers Payer name Policy type / Coverage type Covered constitution party ID Effective Begin Date Effective End Date SUKI MAYO [id number] Unknown Unknown Family history Mother Diagnosis Age [...] 05/31/2018 Education level Unknown Some High School 10th05/31/20185577PrikhjfmjbWqfmqygIgisprlkda23/29/2018Tobacco historySNOMED CT: 401885565Tpi never smoked or chewed pgzngpm8405/31/2018Alcohol historySNOMED CT: 740432010Xhzgp drinks svvtmwh7505/31/2018Has the patient ever used illegal drugs? UnknownHas never used illegal drugs05/31/2018DNR Order/ Advanced Directive UnknownFull Code05/31/2018 Allergies, Adverse Reactions, Alerts Substance Reaction Codes Entered Date Inactivated Date Status *No known food allergies Fulovvl8109/06/2018No Inactive DateActiveMethylprednisolonehivesRxNorm: 6902 09/06/2018No Inactive DateActive Problems Condition Codes Effective Dates Condition St atus Diarrhea ICD-10: R19.7 ICD-9: 787.9109/29/2019ActiveChronic kidney disease, unspecifiedICD-10: N18.9 ICD-9: 585.909/ActiveHypertensive heart disease with heart failureICD-10: I11.0 ICD-9: 402.9107/ActiveMixed incontinenceICD-10: N39.46 ICD-9: 788.3308ActiveType 2 diabetes mellitus without complicationsICD- 10: E11.9 ICD-9: 250.0001ActiveGERD (gastroesophageal reflux disease)ICD-10: K21.9 ICD-9: 530.8112ActiveAcute upper [...] malignant neoplasm of cervixICD-10: Z12.4 ICD-9: V76.207ActiveOther residential (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ICD-10: Z79.899 ICD-9: V58.6907ActiveBody [...] Fill Instructions loperamide 2 mg tablet RxNorm: 937542 1 Tablet(s) Oral as needed take one [...] 2019 Inactive hydrochlorothiazide 25 mg tablet RxNorm: 385826 1 Tablet(s) Oral every day 09/19/20 19 2019 Inactive Sudafed 12 Hour 120 mg tablet,extended release RxNorm: 5146752 1 Tablet(s) Oral every 12 hours as needed 09/11/20 19 2018 Inactive omeprazole 20 mg capsule,delayed release RxNorm: 133544 1 Capsule(s) Oral every day 09/07/20 19 2019 Inactive Sudafed 12 Hour 120 mg tablet,extended release RxNorm: 8957842 1 Tablet(s) Oral every 12 hours as needed 09/04/20 19 2018 Inactive pantoprazole 40 mg tablet,delayed release RxNorm: 552562 1 Tablet(s) Oral every day 08/24/202018 Inactive discontinue any other H2Blkr. and PPI Alcohol Prep Pads RxNorm: 085230 1 Patch TOP QAM 08/17/20 19 2019 Inactive albuterol sulfate 2.5 mg/3 mL (0.083 %) solution for nebulization RxNorm: 962176 1 Vial Inhalation every four hours as needed as needed for dyspnea 08/17/20 19 2019 Inactive 60/box. This refill negates all other refills of this medication. Please do not fill early. Please do not auto refill. Symbicort 160 mcg-4.5 mcg/actuation HFA aerosol inhaler RxNorm: 4954673 2 Puff(s) INH BID 08/17/20 19 No Stop Date Active True Metrix Glucose Test Strip RxNorm: 1 Test Strips Miscellaneous QAM 08/09/20 19 2019 Inactive 100/container Ventolin HFA 90 mcg/actuation aerosol inhaler RxNorm: 798753 2 Puff(s) INH QID 08/09/20 19 2019 Inactive Please do not fill early. Please do not auto refill. This refill negates all other refills of this medication atorvastatin 40 mg tablet RxNorm: 946001 1 Tablet(s) Oral every day 07/04/20 19 2019 Inactive hydrochlorothiazide 12.5 mg tablet RxNorm: 701566 1 Tablet(s) PO QAM 06/26/20 19 2019 Inactive levmetamfetamine 50 mg nasal inhaler RxNorm: 1 Unit(s) NASAL Q3-4H Do not use more than every 3 hours or 8 times/24hours 06/26/20 19 2021 Inactive Please do not auto refill. This refill negates all other refills of this medication Singulair 10 mg tablet RxNorm: 654252 1 Tablet(s) PO daily 06/26/20 19 2019 Inactive This refill negates all other refills of this medication cetirizine 10 mg tablet RxNorm: 6354184 1 Tablet(s) PO daily 06/26/20 19 2019 Inactive This refill negates all other refills of this medication. Please do not auto refill levothyroxine 50 mcg tablet RxNorm: 929806 1 Tablet(s) PO daily 06/26/20 19 2019 Inactive This refill negates all other refills of this medication diclofenac sodium 75 mg tablet,delayed release RxNorm: 092199 1 Tablet(s) PO BID 06/26/20 19 2019 Inactive This refill negates all other refills of this medication buspirone 7.5 mg tablet RxNorm: 105805 1 Tablet(s) PO BID 06/26/20 19 2020 Inactive This refill negates all other refills of this medication Ventolin HFA 90 mcg/actuation aerosol inhaler RxNorm: 916714 2 Puff(s) INH QID 06/26/20 19 2018 Inactive Please do not fill early. Please do not auto refill. This refill negates all other refills of this medication ranitidine 150 mg tablet RxNorm: 257612 1 Tablet(s) PO BID 06/26/20 19 2018 Inactive This refill negates all other refills of this medication Calcium 600-D3 Plus (mag-zinc) 600 mg calcium-800 unit-50 mg tablet RxNorm: 1 Tablet(s) PO daily take an additonal tablet for itching. 06/26/20 19 2018 Inactive This refill negates all other refills of this medication albuterol sulfate 2.5 mg/3 mL (0.083 %) solution for nebulization RxNorm: 321413 1 Vial INH QID 06/26/20 19 2018 Inactive 60/box. This refill negates all other refills of this medication. Please do not fill early. Please do not auto refill. lisinopril 2.5 mg tablet RxNorm: 286069 1 Tablet(s) PO daily 06/21/20 19 2019 Inactive gabapentin 300 mg capsule RxNorm: 323912 1 Capsule(s) PO TID 06/21/20 19 2019 Inactive atorvastatin 20 mg tablet RxNorm: 977920 1 Tablet(s) PO QHS 06/07/20 19 2018 Inactive This refill negates all other refills of this medication TRUEplus Lancets 30 gauge RxNorm: 1 Lancets Miscellaneous QAM 05/29/20 19 2018 Inactive 100/box gabapentin 300 mg capsule RxNorm: 165975 1 Capsule(s) PO TID 05/03/20 19 2018 Inactive Flmichaeles Complete (iron) 18 mg iron chewable tablet RxNorm: 1 Tablet(s) PO daily 04/04/20 19 2021 Inactive This refill negates all other refills of this medication gabapentin 300 mg capsule RxNorm: 000369 1 Capsule(s) PO TID as needed 02/01/202018 Inactive True Metrix Glucose Test Strip RxNorm: 1 Test Strips Miscellaneous QA 02/01/20 19 2018 Inactive 100/container Alcohol Prep Pads RxNorm: 812078 1 Patch TOP QA 02/01/202018 Inactive TRUEplus Lancets 30 gauge RxNorm: 1 Lancets Miscellaneous QAM 02/01/20 19 2018 Inactive 100/box lisinopril 2.5 mg tablet RxNorm: 463007 1 Tablet(s) PO daily 12/28/19 19 2018 Inactive ranitidine 150 mg tablet RxNorm: 395780 1 Tablet(s) PO BID 10/21/19 19 2018 Inactive This refill negates all other refills of this medication albuterol sulfate 2.5 mg/3 mL (0.083 %) solution for nebulization RxNorm: 787513 1 Vial INH QID 10/21/19 19 2018 [...] this medication gabapentin 300 mg capsule RxNorm: 481932 1 Capsule(s) PO TID as needed 10/21/19 19 2018 Inactive atorvastatin 20 mg tablet RxNorm: 511817 1 Tablet(s) PO QHS 10/21/192018 Inactive This refill negates all other refills of this medication trazodone 50 mg tablet RxNorm: 584706 1 Tablet(s) PO QHS 10/21/192018 Inactive This refill negates all other refills of this medication Ventolin HFA 90 mcg/actuation aerosol inhaler RxNorm: 046351 2 Puff(s) INH QID 10/21/192018 Inactive Please do not fill early. Please do not auto refill. This refill negates all other refills of this medication Calcium 600-D3 Plus 600 mg calcium-800 unit-50 mg tablet RxNorm: 1 Tablet(s) PO daily take an additonal tablet for itching. 10/21/192018 Inactive This refill negates all other refills of this medication Singulair 10 mg tablet RxNorm: 724076 1 Tablet(s) PO daily 10/21/192018 Inactive This refill negates all other refills of this medication buspirone 7.5 mg tablet RxNorm: 964166 1 Tablet(s) PO BID 10/21/192018 Inactive This refill negates all other refills of this medication diclofenac sodium 75 mg tablet,delayed release RxNorm: 686903 1 Tablet(s) PO BID 10/21/19 19 2018 Inactive This refill negates all other refills of this medication hydrochlorothiazide 12.5 mg tablet RxNorm: 157844 1 Tablet(s) PO QAM 10/21/19 19 2018 Inactive metoprolol succinate ER 50 mg tablet,extended release 24 hr RxNorm: 714714 1 Tablet(s) PO daily 10/21/19 19 2018 Inactive This refill negates all other refills of this medication levothyroxine 50 mcg tablet RxNorm: 534868 1 Tablet(s) PO daily 10/21/19 19 2018 Inactive This refill negates all other refills of this medication cetirizine 10 mg tablet RxNorm: 1134923 1 Tablet(s) PO daily 10/21/192018 Inactive This refill negates all other refills of this medication. Please do not auto refill Flintstones Complete (iron) 18 mg iron chewable tablet RxNorm: 1 Tablet(s) PO daily 10/21/192018 Inactive This refill negates all other refills of this medication buspirone 7.5 mg tablet RxNorm: 600023 1 Tablet(s) PO BID 10/12/192018 Inactive cetirizine 10 mg tablet RxNorm: 4260233 1 Tablet(s) PO daily 09/28/202018 Inactive Guaiasorb DM 10 mg-100 mg/5 mL oral liquid RxNorm: 687312 10 Milliliter(s) PO As needed every 4 hr 09/24/20 18 2018 Inactive Vicks Vaporub 4.7 %-1.2 %-2.6 % topical ointment RxNorm: 5886680 1 Application TOP TID 09/24/20 18 2018 Inactive levmetamfetamine 50 mg nasal inhaler RxNorm: 1 Unit(s) NASAL Q3-4H 09/24/20 18 2017 Inactive sertraline 50 mg tablet RxNorm: 084518 1 Tablet(s) PO daily 09/09/20 18 2018 Inactive Please note dose trazodone 50 mg tablet RxNorm: 223882 1 Tablet(s) PO QHS 09/06/20 18 2018 Inactive sertraline 50 mg tablet RxNorm: 903872 1 Tablet(s) PO daily 09/06/20 18 2017 Inactive amoxicillin 500 mg tablet RxNorm: 537853 1 Tablet(s) PO Q12H 08/31/20 18 2017 Inactive albuterol sulfate 2.5 mg/3 mL (0.083 %) solution for nebulization RxNorm: 876464 1 Vial INH QID 08/10/20 18 2018 Inactive 60/box. Please do not fill early. Please do not auto refill. Prozac 10 mg capsule RxNorm: 608762 1 Capsule(s) PO daily 08/09/20 18 2017 Inactive buspirone 7.5 mg tablet RxNorm: 091384 1 Tablet(s) PO BID 08/09/20 18 2018 Inactive gabapentin 300 mg capsule RxNorm: 693104 1 Capsule(s) PO TID as needed 08/01/20 18 2018 Inactive hydrochlorothiazide 12.5 mg tablet RxNorm: 553900 1 Tablet(s) PO QAM 08/01/20 18 2018 Inactive ranitidine 150 mg tablet RxNorm: 228287 1 Tablet(s) PO BID 08/01/20 18 2018 Inactive Macrobid 100 mg capsule RxNorm: 112743 1 Capsule(s) PO Q12H 06/21/20 18 2017 Inactive Singulair 10 mg tablet RxNorm: 508808 1 Tablet(s) PO daily 06/14/20 18 2018 Inactive Ventolin HFA 90 mcg/actuation aerosol inhaler RxNorm: 4906295 2 Puff(s) INH QID 06/14/20 18 2018 Inactive Singulair 10 mg tablet RxNorm: 984103 1 Tablet(s) PO daily 06/14/20 18 2017 Inactive buspirone 7.5 mg tablet RxNorm: 154327 1 Tablet(s) PO BID 06/14/20 18 2017 Inactive Prozac 10 mg capsule RxNorm: 093966 1 Capsule(s) PO daily 06/14/20 18 2017 Inactive Neilmed Pediatric Sinus Rinse Refill packet RxNorm: 1 Unit Dose NASAL PRN 05/31/20 18 2021 Inactive diclofenac sodium 75 mg tablet,delayed release RxNorm: 891232 1 Tablet(s) PO BID 05/31/20 18 2017 Inactive lisinopril 2.5 mg tablet RxNorm: 058748 1 Tablet(s) PO daily 05/31/20 18 2017 Inactive metoprolol succinate ER 50 mg tablet,extended release 24 hr RxNorm: 308546 1 Tablet(s) PO daily 05/31/20 18 2017 Inactive levothyroxine 50 mcg tablet RxNorm: 812630 1 Tablet(s) PO daily 05/31/20 18 2017 Inactive TRUEplus Lancets 30 gauge RxNorm: 1 Lancets Miscellaneous QAM 05/31/20 18 2017 Inactive 100/box Ventolin HFA 90 mcg/actuation aerosol inhaler RxNorm: 712894 2 Puff(s) INH QID 05/31/20 18 2017 Inactive Aleve 220 mg capsule RxNorm: 3848475 1 Capsule(s) PO BID 05/31/20 18 2018 Inactive ranitidine 150 mg tablet RxNorm: 737885 1 Tablet(s) PO BID 05/31/20 18 2017 Inactive gabapentin 300 mg capsule RxNorm: 550792 1 Capsule(s) PO TID as needed 05/31/20 18 2017 Inactive atorvastatin 20 mg tablet RxNorm: 605847 1 Tablet(s) PO QHS 05/31/20 18 2017 Inactive True Metrix Glucose Test Strip RxNorm: 1 Test Strips Miscellaneous QAM 05/31/20 18 2017 Inactive 50/container Calcium 600-D3 Plus 600 mg calcium-800 unit-50 mg tablet RxNorm: 1 Tablet(s) PO daily take an additonal tablet for itching. 05/31/20 18 2017 Inactive hydrochlorothiazide 12.5 mg tablet RxNorm: 844545 1 Tablet(s) PO QAM 05/31/20 18 2017 Inactive Flintstones Complete (iron) 18 mg iron chewable tablet RxNorm: 1 Tablet(s) PO daily 05/31/20 18 2017 Inactive sertraline 50 mg tablet RxNorm: 683511 1 Tablet(s) PO daily 11/28/19 20 2019 Inactive d-mannose oral powder RxNorm: PO 18 2021 Inactive True Metrix Glucose Meter RxNorm: miscellaneous 08/17/20 19 2018 Inactive loperamide 2 mg tablet RxNorm: 816519 oral 09/29/20 19 2018 Inactive Symbicort 160 mcg-4.5 mcg/actuation HFA aerosol inhaler RxNorm: 1709964 2 Puff(s) INH BID 08/17/202018 Inactive Medication Administered No Medication Administered data Procedures Procedure Codes Date Fall Risk Assessment SNOMED CT: 12826666 4 CPT-4: DFRA09/19/2019Functional AssessmentCPT-4: DFA111/20/2018Urinalysis, dip stickCPT-4: 347572906/21/2019Tobacco Assessment/ScreeningCPT-4: TCA05/24/2019 Patient Health QuestionnaireCPT-4: DPHQ05/24/2019AHA/REBECCA Classification AssessmentCPT-4: DAHA04/25/2019Controlled Substance ReportCPT-4: CTRSU04/25/2019 Urinalysis, dip stickCPT-4: 2754294Urinalysis, dip stickCPT-4: 92443 03/28/20194223E8C-MfiunoctfkdpelgWUJ-4: 30885DszikcrJflnhdizet ReferralSNOMED CT: 755993036 CPT-4: K81Btuaodp Reason For Visit No Reason For Visit data Plan of Care Planned Activity Notes Codes Status Date Patient Education: Patient Medication Summary Fhwyomfxv11/28/2019Appointment: Anna Culver WPtel: [address] [place], [place] [id number]: Sudha Hernadez WPtel: [address] [facility] [address] [id number]: Sudha Hernadez WPtel: [address] [facility] [address] [id number]: Charlene Oropeza WPtel: [address] [facility] [address] [id number]: DannyEnedeliaSnvaglE03852/26/2019Appointment: Charlene Oropeza WPtel: [address] [facility] [address] [id number]: Haupricht, Rasta WPtel: [address] [facility] [address] [id number]: Haupricht, Rasta WPtel: [address] [facility] [address] [id number]: Haupricht, Rasta WPtel: [address] [facility] [address] [id number]: Haupricht, Rasta WPtel: [address] [facility] [address] [id number]: Pending Gynecology Referral InformationReferral ProcessedReferral: Pending Pulmonology Referral InformationReferralProcessed Referral: Pending Psychiatry Referral InformationReferralInitiatedReferral: Pending Respiratory Services Referral InformationReferralInitiatedReferral: Pending Ophthalmology Referral InformationReferralInitiatedReferral: [facility] WPtel: [address] [place] [address] [address] [id number] USWriter placed a call out to the patient to notify her that it has been recommended that she be seenby 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 Patient agreed to be seen, does not have a provider of choice and no transportationissues. Stain Sprayer faxed referral and clinical notes to [facility] in [place], [place] near the patient's home. Patient to [...] seen and prefers a provider in the [place] or [place] area. Stain Sprayer placed a call out to everyone listed in the area and the only location that was able to accept the patient's insurance was [address] [address] and spoke with Maylin. Maylin asked that the patient's referral, face sheet and visit notes be faxed to . Stain Sprayer faxed over requested documents. Patient appointment confirmation letter generated and mailed to her home address. Patient to call to schedule an appointment.ProcessedReferral: [facility] WPtel: [address] [place] [address] [address] [id number] USPatient notified that it has been advised that she be seen by Neurology. Patient agreed to be seen and prefers to be seen by a provider in the [place], [place] area. Patient denies any concerns with transportation, and prefers to schedule her own appointment. Stain Sprayer [facility] and spoke with [...]
--- OUTSIDE RECORDS SUMMARY | 2023-12-07 02:08 | XMS_ITS | CCD ---
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 Office Services Manager Name Role Phone Palomo KING, Anna Primary Care Provider Unav ailable Unavailable Chronic Care Management Unavaila ble Summary Purpose DataExchange Insurance Providers Payer name Policy type / Coverage type Covered republican ID Effective Begin Date Effective End Date [facility] [id number] Unknown Unknown Family history Mother Diagnosis Age [...] 05/31/2018 Education level Unknown Some High School 10th05/31/20188496HfncpikduwAsmhclwDfgkihcawo89/29/2018Tobacco historySNOMED CT: 559760393Zsg never smoked or chewed lqtjxvo9605/31/2018Alcohol historySNOMED CT: 056228530Nseqm drinks wtrgisn8505/31/2018Has the patient ever used illegal drugs? UnknownHas never used illegal drugs05/31/2018DNR Order/ Advanced Directive UnknownFull Code05/31/2018 Allergies, Adverse Reactions, Alerts Substance Reaction Codes Entered Date Inactivated Date Status *No known food allergies Xmmhbfi9209/06/2018No Inactive DateActiveMethylprednisolonehivesRxNorm: 6902 09/06/2018No Inactive DateActive Problems Condition Codes Effective Dates Condition St atus Chronic kidney disease, unspecified ICD- 10: N18.9 ICD-9: 585.909ActiveHypertensive heart disease with heart failureICD-10: I11.0 ICD-9: 402.9107ActiveMixed incontinenceICD-10: N39.46 ICD-9: 788.3308ActiveType 2 diabetes mellitus without complicationsICD- 10: E11.9 ICD-9: 250.0001/10/2018ActiveGERD (gastroesophageal reflux disease)ICD-10: K21.9 ICD-9: 530.8112ActiveAcute upper respiratory infection, unspecifiedICD- 10: J06.9 ICD-9: 465.912ActiveEssential (primary) hypertensionICD-10: I10 ICD-9: 401.901/10/2018ActiveHypothyroidism, unspecifiedICD-10: E03.9 ICD-9: 244.912/01/2018ActiveHyperlipidemia, unspecifiedICD-10: E78.5 ICD-9: 272.408ActiveObstructive sleep apnea (adult) (pediatric)ICD-10: G47.33 ICD-9: 327.2309ActiveApnea, not elsewhere classifiedICD-10: R06.81 ICD-9: 786.0305ActiveEncounter for immunizationICD-10: Z23 ICD-9: V03.907/ActiveEncounter for screening, unspecifiedICD-10: Z13.9 ICD-9: V82.912ActiveUnspecified asthma, uncomplicatedICD-10: J45.909 ICD-9: 493.9011ActivePolyneuropathy, unspecifiedICD-10: G62.9 ICD-9: 356.908ActivePatient Not SeenICD-10: UXZ.01 ICD-9: XZ0.107ActiveEncounter for screening for malignant neoplasm of cervixICD-10: Z12.4 ICD-9: V76.207/ActiveOther care home (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ICD-10: Z79.899 ICD-9: V58.6907ActiveBody mass [...] 2019 Inactive hydrochlorothiazide 25 mg tablet RxNorm: 405567 1 Tablet(s) Oral every day 09/19/20 19 2019 Inactive Sudafed 12 Hour 120 mg tablet,extended release RxNorm: 8990290 1 Tablet(s) Oral every 12 hours as needed 09/11/20 19 2018 Inactive omeprazole 20 mg capsule,delayed release RxNorm: 199153 1 Capsule(s) Oral every day 09/07/20 19 2019 Inactive Sudafed 12 Hour 120 mg tablet,extended release RxNorm: 4175716 1 Tablet(s) Oral every 12 hours as needed 09/04/20 19 2018 Inactive pantoprazole 40 mg tablet,delayed release RxNorm: 326829 1 Tablet(s) Oral every day 08/24/202018 Inactive discontinue any other H2Blkr. and PPI Alcohol Prep Pads RxNorm: 349658 1 Patch TOP QAM 08/17/20 19 2019 Inactive albuterol sulfate 2.5 mg/3 mL (0.083 %) solution for nebulization RxNorm: 588695 1 Vial Inhalation every four hours as needed as needed for dyspnea 08/17/202019 Inactive 60/box. This refill negates all other refills of this medication. Please do not fill early. Please do not auto refill. Symbicort 160 mcg-4.5 mcg/actuation HFA aerosol inhaler RxNorm: 5752695 2 Puff(s) INH BID 08/17/20 19 No Stop Date Active True Metrix Glucose Test Strip RxNorm: 1 Test Strips Miscellaneous QAM 08/09/20 19 2019 Inactive 100/container Ventolin HFA 90 mcg/actuation aerosol inhaler RxNorm: 691354 2 Puff(s) INH QID 08/09/20 19 2019 Inactive Please do not fill early. Please do not auto refill. This refill negates all other refills of this medication atorvastatin 40 mg tablet RxNorm: 119767 1 Tablet(s) Oral every day 07/04/20 19 2019 Inactive hydrochlorothiazide 12.5 mg tablet RxNorm: 393792 1 Tablet(s) PO QAM 06/26/20 19 2019 Inactive levmetamfetamine 50 mg nasal inhaler RxNorm: 1 Unit(s) NASAL Q3-4H Do not use more than every 3 hours or 8 times/24hours 06/26/202021 Inactive Please do not auto refill. This refill negates all other refills of this medication Singulair 10 mg tablet RxNorm: 239886 1 Tablet(s) PO daily 06/26/20 19 2019 Inactive This refill negates all other refills of this medication cetirizine 10 mg tablet RxNorm: 7467522 1 Tablet(s) PO daily 06/26/20 19 2019 Inactive This refill negates all other refills of this medication. Please do not auto refill levothyroxine 50 mcg tablet RxNorm: 989611 1 Tablet(s) PO daily 06/26/20 19 2019 Inactive This refill negates all other refills of this medication diclofenac sodium 75 mg tablet,delayed release RxNorm: 691760 1 Tablet(s) PO BID 06/26/20 19 2019 Inactive This refill negates all other refills of this medication buspirone 7.5 mg tablet RxNorm: 024097 1 Tablet(s) PO BID 06/26/20 19 2020 Inactive This refill negates all other refills of this medication Ventolin HFA 90 mcg/actuation aerosol inhaler RxNorm: 513052 2 Puff(s) INH QID 06/26/20 19 2018 Inactive Please do not fill early. Please do not auto refill. This refill negates all other refills of this medication ranitidine 150 mg tablet RxNorm: 270584 1 Tablet(s) PO BID 06/26/20 19 2018 Inactive This refill negates all other refills of this medication Calcium 600-D3 Plus (mag-zinc) 600 mg calcium-800 unit-50 mg tablet RxNorm: 1 Tablet(s) PO daily take an additonal tablet for itching. 06/26/20 19 2018 Inactive This refill negates all other refills of this medication albuterol sulfate 2.5 mg/3 mL (0.083 %) solution for nebulization RxNorm: 786982 1 Vial INH QID 06/26/20 19 2018 Inactive 60/box. This refill negates all other refills of this medication. Please do not fill early. Please do not auto refill. lisinopril 2.5 mg tablet RxNorm: 552334 1 Tablet(s) PO daily 06/21/20 19 2019 Inactive gabapentin 300 mg capsule RxNorm: 898687 1 Capsule(s) PO TID 06/21/20 19 2019 Inactive atorvastatin 20 mg tablet RxNorm: 824435 1 Tablet(s) PO QHS 06/07/20 19 2018 Inactive This refill negates all other refills of this medication TRUEplus Lancets 30 gauge RxNorm: 1 Lancets Miscellaneous QAM 05/29/20 19 2018 Inactive 100/box gabapentin 300 mg capsule RxNorm: 916738 1 Capsule(s) PO TID 05/03/20 19 2018 Inactive Flintstones Complete (iron) 18 mg iron chewable tablet RxNorm: 1 Tablet(s) PO daily 04/04/20 19 2021 Inactive This refill negates all other refills of this medication gabapentin 300 mg capsule RxNorm: 669647 1 Capsule(s) PO TID as needed 02/01/20 19 2018 Inactive True Metrix Glucose Test Strip RxNorm: 1 Test Strips Miscellaneous QAM 02/01/20 19 2018 Inactive 100/container Alcohol Prep Pads RxNorm: 696808 1 Patch TOP QAM 02/01/20 19 2018 Inactive TRUEplus Lancets 30 gauge RxNorm: 1 Lancets Miscellaneous QAM 02/01/20 19 2018 Inactive 100/box lisinopril 2.5 mg tablet RxNorm: 038187 1 Tablet(s) PO daily 12/28/19 19 2018 Inactive ranitidine 150 mg tablet RxNorm: 757887 1 Tablet(s) PO BID 10/21/19 19 2018 Inactive This refill negates all other refills of this medication albuterol sulfate 2.5 mg/3 mL (0.083 %) solution for nebulization RxNorm: 484086 1 Vial INH QID 10/21/19 19 2018 [...] this medication gabapentin 300 mg capsule RxNorm: 221073 1 Capsule(s) PO TID as needed 10/21/192018 Inactive atorvastatin 20 mg tablet RxNorm: 778813 1 Tablet(s) PO QHS 10/21/192018 Inactive This refill negates all other refills of this medication trazodone 50 mg tablet RxNorm: 780975 1 Tablet(s) PO QHS 10/21/192018 Inactive This refill negates all other refills of this medication Ventolin HFA 90 mcg/actuation aerosol inhaler RxNorm: 048420 2 Puff(s) INH QID 10/21/192018 Inactive Please do not fill early. Please do not auto refill. This refill negates all other refills of this medication Calcium 600-D3 Plus 600 mg calcium-800 unit-50 mg tablet RxNorm: 1 Tablet(s) PO daily take an additonal tablet for itching. 10/21/192018 Inactive This refill negates all other refills of this medication Singulair 10 mg tablet RxNorm: 909780 1 Tablet(s) PO daily 10/21/192018 Inactive This refill negates all other refills of this medication buspirone 7.5 mg tablet RxNorm: 682086 1 Tablet(s) PO BID 10/21/192018 Inactive This refill negates all other refills of this medication diclofenac sodium 75 mg tablet,delayed release RxNorm: 713886 1 Tablet(s) PO BID 10/21/192018 Inactive This refill negates all other refills of this medication hydrochlorothiazide 12.5 mg tablet RxNorm: 578627 1 Tablet(s) PO QAM 10/21/192018 Inactive metoprolol succinate ER 50 mg tablet,extended release 24 hr RxNorm: 356650 1 Tablet(s) PO daily 10/21/19 19 2018 Inactive This refill negates all other refills of this medication levothyroxine 50 mcg tablet RxNorm: 527157 1 Tablet(s) PO daily 10/21/19 19 2018 Inactive This refill negates all other refills of this medication cetirizine 10 mg tablet RxNorm: 8654862 1 Tablet(s) PO daily 10/21/19 19 2018 Inactive This refill negates all other refills of this medication. Please do not auto refill Flintstones Complete (iron) 18 mg iron chewable tablet RxNorm: 1 Tablet(s) PO daily 10/21/19 19 2018 Inactive This refill negates all other refills of this medication buspirone 7.5 mg tablet RxNorm: 719318 1 Tablet(s) PO BID 10/12/19 19 2018 Inactive cetirizine 10 mg tablet RxNorm: 2935096 1 Tablet(s) PO daily 09/28/20 18 2018 Inactive Guaiasorb DM 10 mg-100 mg/5 mL oral liquid RxNorm: 433902 10 Milliliter(s) PO As needed every 4 hr 09/24/20 18 2018 Inactive Vicks Vaporub 4.7 %-1.2 %-2.6 % topical ointment RxNorm: 0113465 1 Application TOP TID 09/24/20 18 2018 Inactive levmetamfetamine 50 mg nasal inhaler RxNorm: 1 Unit(s) NASAL Q3-4H 09/24/20 18 2017 Inactive sertraline 50 mg tablet RxNorm: 837821 1 Tablet(s) PO daily 09/09/20 18 2018 Inactive Please note dose trazodone 50 mg tablet RxNorm: 334014 1 Tablet(s) PO QHS 09/06/20 18 2018 Inactive sertraline 50 mg tablet RxNorm: 561294 1 Tablet(s) PO daily 09/06/20 18 2017 Inactive amoxicillin 500 mg tablet RxNorm: 545704 1 Tablet(s) PO Q12H 08/31/20 18 2017 Inactive albuterol sulfate 2.5 mg/3 mL (0.083 %) solution for nebulization RxNorm: 872175 1 Vial INH QID 08/10/20 18 2018 Inactive 60/box. Please do not fill early. Please do not auto refill. Prozac 10 mg capsule RxNorm: 490407 1 Capsule(s) PO daily 08/09/20 18 2017 Inactive buspirone 7.5 mg tablet RxNorm: 724366 1 Tablet(s) PO BID 08/09/20 18 2018 Inactive gabapentin 300 mg capsule RxNorm: 984554 1 Capsule(s) PO TID as needed 08/01/20 18 2018 Inactive hydrochlorothiazide 12.5 mg tablet RxNorm: 589897 1 Tablet(s) PO QAM 08/01/20 18 2018 Inactive ranitidine 150 mg tablet RxNorm: 374920 1 Tablet(s) PO BID 08/01/20 18 2018 Inactive Macrobid 100 mg capsule RxNorm: 741357 1 Capsule(s) PO Q12H 06/21/20 18 2017 Inactive Singulair 10 mg tablet RxNorm: 089426 1 Tablet(s) PO daily 06/14/20 18 2018 Inactive Ventolin HFA 90 mcg/actuation aerosol inhaler RxNorm: 0564836 2 Puff(s) INH QID 06/14/20 18 2018 Inactive Singulair 10 mg tablet RxNorm: 922358 1 Tablet(s) PO daily 06/14/20 18 2017 Inactive buspirone 7.5 mg tablet RxNorm: 636094 1 Tablet(s) PO BID 06/14/20 18 2017 Inactive Prozac 10 mg capsule RxNorm: 212404 1 Capsule(s) PO daily 06/14/20 18 2017 Inactive Neilmed Pediatric Sinus Rinse Refill packet RxNorm: 1 Unit Dose NASAL PRN 05/31/20 18 2021 Inactive diclofenac sodium 75 mg tablet,delayed release RxNorm: 821331 1 Tablet(s) PO BID 05/31/20 18 2017 Inactive lisinopril 2.5 mg tablet RxNorm: 497397 1 Tablet(s) PO daily 05/31/20 18 2017 Inactive metoprolol succinate ER 50 mg tablet,extended release 24 hr RxNorm: 883315 1 Tablet(s) PO daily 05/31/20 18 2017 Inactive levothyroxine 50 mcg tablet RxNorm: 030363 1 Tablet(s) PO daily 05/31/20 18 2017 Inactive TRUEplus Lancets 30 gauge RxNorm: 1 Lancets Miscellaneous QAM 05/31/20 18 2017 Inactive 100/box Ventolin HFA 90 mcg/actuation aerosol inhaler RxNorm: 185321 2 Puff(s) INH QID 05/31/20 18 2017 Inactive Aleve 220 mg capsule RxNorm: 5273356 1 Capsule(s) PO BID 05/31/20 18 2018 Inactive ranitidine 150 mg tablet RxNorm: 220742 1 Tablet(s) PO BID 05/31/20 18 2017 Inactive gabapentin 300 mg capsule RxNorm: 464212 1 Capsule(s) PO TID as needed 05/31/20 18 2017 Inactive atorvastatin 20 mg tablet RxNorm: 019561 1 Tablet(s) PO QHS 05/31/20 18 2017 Inactive True Metrix Glucose Test Strip RxNorm: 1 Test Strips Miscellaneous QAM 05/31/20 18 2017 Inactive 50/container Calcium 600-D3 Plus 600 mg calcium-800 unit-50 mg tablet RxNorm: 1 Tablet(s) PO daily take an additonal tablet for itching. 05/31/20 18 2017 Inactive hydrochlorothiazide 12.5 mg tablet RxNorm: 991301 1 Tablet(s) PO QAM 05/31/20 18 2017 Inactive Flintstones Complete (iron) 18 mg iron chewable tablet RxNorm: 1 Tablet(s) PO daily 05/31/20 18 2017 Inactive sertraline 50 mg tablet RxNorm: 090875 1 Tablet(s) PO daily 11/28/19 20 2019 Inactive loperamide 2 mg tablet RxNorm: 452434 oral 09/29/20 19 2018 Inactive d-mannose oral powder RxNorm: PO 18 2021 Inactive True Metrix Glucose Meter RxNorm: miscellaneous 08/17/20 19 2018 Inactive Symbicort 160 mcg-4.5 mcg/actuation HFA aerosol inhaler RxNorm: 2226373 2 Puff(s) INH BID 08/17/202018 Inactive Medication Administered No Medication Administered data Procedures Procedure Codes Date Fall Risk Assessment SNOMED CT: 11055589 4 CPT-4: DFRA09/19/2019Functional AssessmentCPT-4: DFA111/20/2018Urinalysis, dip stickCPT-4: 1802119Tobacco Assessment/ScreeningCPT-4: TCA05/24/2019 Patient Health QuestionnaireCPT-4: DPHQ05/24/2019AHA/REBECCA Classification AssessmentCPT-4: DAHA04/25/2019Controlled Substance ReportCPT-4: CTRSU04/25/2019 Urinalysis, dip stickCPT-4: 6882412Urinalysis, dip stickCPT-4: 50454 03/28/20191633H3E-ExkwoxtfpbirnleCFN-1: 64024CvfinqcYgjjosbqyl ReferralSNOMED CT: 588731230 CPT-4: V12Ivvmwgh Reason For Visit No Reason For Visit data Plan of Care Planned Activity Notes Codes Status Date Referral: Pending Gynecology Referral Informatio n Referral ProcessedReferral: Pending Pulmonology Referral InformationReferralProcessed Referral: Pending Psychiatry Referral InformationReferralInitiatedReferral: Pending Respiratory Services Referral InformationReferralInitiatedReferral: Pending Ophthalmology Referral InformationReferralInitiatedReferral: [facility] W[facility] [address] USWriter placed a call out to the patient to notify her that it has been recommended that she be seenby 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 Patient agreed to be seen, does not have a provider of choice and no transportationissues. [facility] faxed referral and clinical notes to [facility] in [place], [place] near the patient's home. Patient to [...] and prefers a provider in the [place] or [place] area. [facility] placed a call out to everyone listed in the area and the only location that was able to accept the patient's insurance was [address] [address] and spoke with Maylin. Maylin asked that the patient's referral, face sheet and visit notes be faxed to . [facility] faxed over requested documents. Patient appointment confirmation letter generated and mailed to her home address. Patient to call to schedule an appointment.ProcessedReferral: [facility] WPtel: [address] [place] [address] [place], [place] [id number] USPatient notified that it has been advised that she be seen by Neurology. Patient agreed to be seen and prefers to be seen by a provider in the [place], [place] area. Patient denies any concerns with transportation, and prefers to schedule her own appointment. [facility] placed a call out to [facility] and spoke with Neeraj P: who confirmed that their office is able to acceptnew patients and the patient's insurance. After confirming the providers fax number, sba underwriter faxed over the patient's referral, and [...]
--- OUTSIDE RECORDS SUMMARY | 2023-12-07 02:08 | XMS_ITS | CCD ---
Author Name Leena Culver NP Address [address] [place] [address] [place] [address] Phone Organization [facility] Phone Care Team Providers Care Warp Hand Name Role Phone Anna Culver NP Primary Care Provider Unav ailable Unavailable Chronic Care Management Unavaila ble Summary Purpose DataExchange Insurance Providers Payer name Policy type / Coverage type Covered libertarian ID Effective Begin Date Effective End Date SUKI MAYO [id number] Unknown Unknown Family history Mother Diagnosis Age [...] 05/31/2018 Education level Unknown Some High School 10th05/31/20184348BzmapzfxnzTnrliinUxdxkvkmei51/29/2018Tobacco historySNOMED CT: 308549009Ser never smoked or chewed nnvoxor5005/31/2018Alcohol historySNOMED CT: 625188361Bjmar drinks wjmzxni7705/31/2018Has the patient ever used illegal drugs? UnknownHas never used illegal drugs05/31/2018DNR Order/ Advanced Directive UnknownFull Code05/31/2018 Allergies, Adverse Reactions, Alerts Substance Reaction Codes Entered Date Inactivated Date Status *No known food allergies Lrrwaep4809/06/2018No Inactive DateActiveMethylprednisolonehivesRxNorm: 6902 09/06/2018No Inactive DateActive Problems Condition Codes Effective Dates Condition St atus Hypertensive heart disease with heart fa ilure ICD-10: I11.0 ICD-9: 402.9107ActiveType 2 diabetes mellitus without complicationsICD- 10: E11.9 ICD-9: 250.0001/10/2018ActiveAdjustment disorder with mixed anxiety and depressed moodICD-10: F43.23 ICD-9: 309.2812ActiveAsthmaICD-10: J45.909 ICD-9: 493.9011ActiveEssential (primary) hypertensionICD-10: I10 ICD-9: 401.901ActiveObstructive sleep apnea (adult) (pediatric)ICD-10: G47.33 ICD-9: 327.2309/ActiveDiarrheaICD-10: R19.7 ICD-9: 787.9112ActiveChronic kidney disease, unspecifiedICD-10: N18.9 ICD-9: 585.909ActiveMixed incontinenceICD-10: N39.46 ICD-9: 788.3308ActiveGERD (gastroesophageal reflux disease)ICD-10: K21.9 ICD-9: 530.8112ActiveAcute upper respiratory infection, unspecifiedICD- 10: J06.9 ICD-9: 465.912ActiveHypothyroidism, unspecifiedICD-10: E03.9 ICD-9: 244.912ActiveHyperlipidemia, unspecifiedICD-10: E78.5 ICD-9: 272.408ActiveApnea, not elsewhere classifiedICD-10: R06.81 ICD-9: 786.0305ActiveEncounter for immunizationICD-10: Z23 ICD-9: V03.907ActiveEncounter for screening, unspecifiedICD-10: Z13.9 ICD-9: V82.912ActivePolyneuropathy, unspecifiedICD-10: G62.9 ICD-9: 356.908ActivePatient Not SeenICD-10: UXZ.01 ICD-9: XZ0.107ActiveEncounter for screening for malignant neoplasm of cervixICD-10: Z12.4 ICD-9: V76.207/ActiveOther usp (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ICD-10: Z79.899 ICD-9: V58.6907ActiveBody mass [...] 2021 Inactive cetirizine 10 mg tablet RxNorm: 7413656 1 Tablet(s) PO daily 10/20/19 20 2019 Inactive This refill negates all other refills of this medication. Please do not auto refill Singulair 10 mg tablet RxNorm: 233030 1 Tablet(s) PO daily 10/20/19 20 2019 Inactive This refill negates all other refills of this medication gabapentin 300 mg capsule RxNorm: 767937 1 Capsule(s) PO TID 10/20/19 20 2019 Inactive lisinopril 2.5 mg tablet RxNorm: 905197 1 Tablet(s) PO daily 10/20/19 20 2019 Inactive levothyroxine 50 mcg tablet RxNorm: 671218 1 Tablet(s) PO daily 10/20/19 20 2019 Inactive This refill negates all other refills of this medication hydrochlorothiazide 25 mg tablet RxNorm: 391160 1 Tablet(s) Oral every day 10/17/19 20 2019 Inactive fenugreek seed extract 500 mg capsule RxNorm: 1 Capsule(s) Oral three times a day 10/17/19 20 2021 Inactive Alcohol Prep Pads RxNorm: 306347 1 Patch TOP QAM 10/16/19 20 2020 Inactive loperamide 2 mg tablet RxNorm: 560943 1 Tablet(s) Oral as needed take one [...] 2019 Inactive hydrochlorothiazide 25 mg tablet RxNorm: 394230 1 Tablet(s) Oral every day 09/19/20 19 2019 Inactive Sudafed 12 Hour 120 mg tablet,extended release RxNorm: 6643444 1 Tablet(s) Oral every 12 hours as needed 09/11/20 19 2018 Inactive omeprazole 20 mg capsule,delayed release RxNorm: 095537 1 Capsule(s) Oral every day 09/07/20 19 2019 Inactive Sudafed 12 Hour 120 mg tablet,extended release RxNorm: 3544435 1 Tablet(s) Oral every 12 hours as needed 09/04/20 19 2018 Inactive pantoprazole 40 mg tablet,delayed release RxNorm: 470395 1 Tablet(s) Oral every day 08/24/20 19 2018 Inactive discontinue any other H2Blkr. and PPI albuterol sulfate 2.5 mg/3 mL (0.083 %) solution for nebulization RxNorm: 507889 1 Vial Inhalation every four hours as needed as needed for dyspnea 08/17/20 19 2019 Inactive 60/box. This refill negates all other refills of this medication. Please do not fill early. Please do not auto refill. Symbicort 160 mcg-4.5 mcg/actuation HFA aerosol inhaler RxNorm: 8492209 2 Puff(s) INH BID 08/17/20 No Stop Date Active Alcohol Prep Pads RxNorm: 052907 1 Patch TOP QAM 08/17/20 19 2019 Inactive True Metrix Glucose Test Strip RxNorm: 1 Test Strips Miscellaneous QAM 08/09/20 19 2019 Inactive 100/container Ventolin HFA 90 mcg/actuation aerosol inhaler RxNorm: 784725 2 Puff(s) INH QID 08/09/20 19 2019 Inactive Please do not fill early. Please do not auto refill. This refill negates all other refills of this medication atorvastatin 40 mg tablet RxNorm: 695453 1 Tablet(s) Oral every day 07/04/20 19 2019 Inactive levmetamfetamine 50 mg nasal inhaler RxNorm: 1 Unit(s) NASAL Q3-4H Do not use more than every 3 hours or 8 times/24hours 06/26/20 19 2021 Inactive Please do not auto refill. This refill negates all other refills of this medication diclofenac sodium 75 mg tablet,delayed release RxNorm: 991827 1 Tablet(s) PO BID 06/26/20 19 2019 Inactive This refill negates all other refills of this medication buspirone 7.5 mg tablet RxNorm: 267779 1 Tablet(s) PO BID 09/24/2020 Inactive This refill negates all other refills of this medication hydrochlorothiazide 12.5 mg tablet RxNorm: 599266 1 Tablet(s) PO QAM 06/26/20 19 2019 Inactive Ventolin HFA 90 mcg/actuation aerosol inhaler RxNorm: 092606 2 Puff(s) INH QID 06/26/20 19 2018 Inactive Please do not fill early. Please do not auto refill. This refill negates all other refills of this medication Singulair 10 mg tablet RxNorm: 768334 1 Tablet(s) PO daily 06/26/20 19 2019 Inactive This refill negates all other refills of this medication cetirizine 10 mg tablet RxNorm: 0690265 1 Tablet(s) PO daily 06/26/20 19 2019 Inactive This refill negates all other refills of this medication. Please do not auto refill levothyroxine 50 mcg tablet RxNorm: 079568 1 Tablet(s) PO daily 06/26/202019 Inactive This refill negates all other refills of this medication ranitidine 150 mg tablet RxNorm: 982396 1 Tablet(s) PO BID 06/26/20 19 2018 Inactive This refill negates all other refills of this medication Calcium 600-D3 Plus (mag-zinc) 600 mg calcium-800 unit-50 mg tablet RxNorm: 1 Tablet(s) PO daily take an additonal tablet for itching. 06/26/20 19 2018 Inactive This refill negates all other refills of this medication albuterol sulfate 2.5 mg/3 mL (0.083 %) solution for nebulization RxNorm: 882175 1 Vial INH QID 06/26/20 19 2018 Inactive 60/box. This refill negates all other refills of this medication. Please do not fill early. Please do not auto refill. lisinopril 2.5 mg tablet RxNorm: 377215 1 Tablet(s) PO daily 06/21/20 19 2019 Inactive gabapentin 300 mg capsule RxNorm: 542303 1 Capsule(s) PO TID 06/21/20 19 2019 Inactive atorvastatin 20 mg tablet RxNorm: 268334 1 Tablet(s) PO QHS 06/07/20 19 2018 Inactive This refill negates all other refills of this medication TRUEplus Lancets 30 gauge RxNorm: 1 Lancets Miscellaneous QAM 05/29/20 19 2018 Inactive 100/box gabapentin 300 mg capsule RxNorm: 262501 1 Capsule(s) PO TID 05/03/20 19 2018 Inactive Flintssaranes Complete (iron) 18 mg iron chewable tablet RxNorm: 1 Tablet(s) PO daily 04/04/20 19 2021 Inactive This refill negates all other refills of this medication gabapentin 300 mg capsule RxNorm: 206212 1 Capsule(s) PO TID as needed 02/01/20 19 2018 Inactive True Metrix Glucose Test Strip RxNorm: 1 Test Strips Miscellaneous QAM 02/01/20 19 2018 Inactive 100/container Alcohol Prep Pads RxNorm: 431901 1 Patch TOP QAM 02/01/20 19 2018 Inactive TRUEplus Lancets 30 gauge RxNorm: 1 Lancets Miscellaneous QAM 02/01/20 19 2018 Inactive 100/box lisinopril 2.5 mg tablet RxNorm: 432407 1 Tablet(s) PO daily 12/28/19 19 2018 Inactive ranitidine 150 mg tablet RxNorm: 283180 1 Tablet(s) PO BID 10/21/192018 Inactive This refill negates all other refills of this medication albuterol sulfate 2.5 mg/3 mL (0.083 %) solution for nebulization RxNorm: 836887 1 Vial INH QID 10/21/19 19 2018 [...] this medication gabapentin 300 mg capsule RxNorm: 704599 1 Capsule(s) PO TID as needed 10/21/19 19 2018 Inactive atorvastatin 20 mg tablet RxNorm: 176767 1 Tablet(s) PO QHS 10/21/19 19 2018 Inactive This refill negates all other refills of this medication trazodone 50 mg tablet RxNorm: 867325 1 Tablet(s) PO QHS 10/21/19 19 2018 Inactive This refill negates all other refills of this medication Ventolin HFA 90 mcg/actuation aerosol inhaler RxNorm: 633747 2 Puff(s) INH QID 10/21/192018 Inactive Please do not fill early. Please do not auto refill. This refill negates all other refills of this medication Calcium 600-D3 Plus 600 mg calcium-800 unit-50 mg tablet RxNorm: 1 Tablet(s) PO daily take an additonal tablet for itching. 10/21/19 19 2018 Inactive This refill negates all other refills of this medication Singulair 10 mg tablet RxNorm: 631221 1 Tablet(s) PO daily 10/21/192018 Inactive This refill negates all other refills of this medication buspirone 7.5 mg tablet RxNorm: 288948 1 Tablet(s) PO BID 10/21/192018 Inactive This refill negates all other refills of this medication diclofenac sodium 75 mg tablet,delayed release RxNorm: 043487 1 Tablet(s) PO BID 10/21/192018 Inactive This refill negates all other refills of this medication hydrochlorothiazide 12.5 mg tablet RxNorm: 594299 1 Tablet(s) PO QAM 10/21/192018 Inactive metoprolol succinate ER 50 mg tablet,extended release 24 hr RxNorm: 752248 1 Tablet(s) PO daily 10/21/19 19 2018 Inactive This refill negates all other refills of this medication levothyroxine 50 mcg tablet RxNorm: 261217 1 Tablet(s) PO daily 10/21/19 19 2018 Inactive This refill negates all other refills of this medication cetirizine 10 mg tablet RxNorm: 8653183 1 Tablet(s) PO daily 10/21/19 19 2018 Inactive This refill negates all other refills of this medication. Please do not auto refill Flintstones Complete (iron) 18 mg iron chewable tablet RxNorm: 1 Tablet(s) PO daily 10/21/19 19 2018 Inactive This refill negates all other refills of this medication buspirone 7.5 mg tablet RxNorm: 877482 1 Tablet(s) PO BID 10/12/19 19 2018 Inactive cetirizine 10 mg tablet RxNorm: 9243785 1 Tablet(s) PO daily 09/28/20 18 2018 Inactive Guaiasorb DM 10 mg-100 mg/5 mL oral liquid RxNorm: 694521 10 Milliliter(s) PO As needed every 4 hr 09/24/20 18 2018 Inactive Vicks Vaporub 4.7 %-1.2 %-2.6 % topical ointment RxNorm: 9504952 1 Application TOP TID 09/24/20 18 2018 Inactive levmetamfetamine 50 mg nasal inhaler RxNorm: 1 Unit(s) NASAL Q3-4H 09/24/20 18 2017 Inactive sertraline 50 mg tablet RxNorm: 158375 1 Tablet(s) PO daily 09/09/20 18 2018 Inactive Please note dose trazodone 50 mg tablet RxNorm: 987098 1 Tablet(s) PO QHS 09/06/20 18 2018 Inactive sertraline 50 mg tablet RxNorm: 585369 1 Tablet(s) PO daily 09/06/20 18 2017 Inactive amoxicillin 500 mg tablet RxNorm: 867454 1 Tablet(s) PO Q12H 08/31/20 18 2017 Inactive albuterol sulfate 2.5 mg/3 mL (0.083 %) solution for nebulization RxNorm: 646781 1 Vial INH QID 08/10/20 18 2018 Inactive 60/box. Please do not fill early. Please do not auto refill. Prozac 10 mg capsule RxNorm: 538301 1 Capsule(s) PO daily 08/09/20 18 2017 Inactive buspirone 7.5 mg tablet RxNorm: 417377 1 Tablet(s) PO BID 08/09/20 18 2018 Inactive gabapentin 300 mg capsule RxNorm: 771250 1 Capsule(s) PO TID as needed 08/01/20 18 2018 Inactive hydrochlorothiazide 12.5 mg tablet RxNorm: 987486 1 Tablet(s) PO QAM 08/01/20 18 2018 Inactive ranitidine 150 mg tablet RxNorm: 016003 1 Tablet(s) PO BID 08/01/20 18 2018 Inactive Macrobid 100 mg capsule RxNorm: 408272 1 Capsule(s) PO Q12H 06/21/20 18 2017 Inactive Singulair 10 mg tablet RxNorm: 484057 1 Tablet(s) PO daily 06/14/20 18 2018 Inactive Ventolin HFA 90 mcg/actuation aerosol inhaler RxNorm: 2009155 2 Puff(s) INH QID 06/14/20 18 2018 Inactive Singulair 10 mg tablet RxNorm: 118869 1 Tablet(s) PO daily 06/14/20 18 2017 Inactive buspirone 7.5 mg tablet RxNorm: 030651 1 Tablet(s) PO BID 06/14/20 18 2017 Inactive Prozac 10 mg capsule RxNorm: 129232 1 Capsule(s) PO daily 06/14/20 18 2017 Inactive Neilmed Pediatric Sinus Rinse Refill packet RxNorm: 1 Unit Dose NASAL PRN 05/31/20 18 2021 Inactive diclofenac sodium 75 mg tablet,delayed release RxNorm: 893614 1 Tablet(s) PO BID 05/31/20 18 2017 Inactive lisinopril 2.5 mg tablet RxNorm: 640792 1 Tablet(s) PO daily 05/31/20 18 2017 Inactive metoprolol succinate ER 50 mg tablet,extended release 24 hr RxNorm: 315982 1 Tablet(s) PO daily 05/31/20 18 2017 Inactive levothyroxine 50 mcg tablet RxNorm: 491622 1 Tablet(s) PO daily 05/31/20 18 2017 Inactive TRUEplus Lancets 30 gauge RxNorm: 1 Lancets Miscellaneous QAM 05/31/20 18 2017 Inactive 100/box Ventolin HFA 90 mcg/actuation aerosol inhaler RxNorm: 547535 2 Puff(s) INH QID 05/31/20 18 2017 Inactive Aleve 220 mg capsule RxNorm: 2849893 1 Capsule(s) PO BID 05/31/20 18 2018 Inactive ranitidine 150 mg tablet RxNorm: 485777 1 Tablet(s) PO BID 05/31/20 18 2017 Inactive gabapentin 300 mg capsule RxNorm: 718135 1 Capsule(s) PO TID as needed 05/31/20 18 2017 Inactive atorvastatin 20 mg tablet RxNorm: 768534 1 Tablet(s) PO QHS 05/31/20 18 2017 Inactive True Metrix Glucose Test Strip RxNorm: 1 Test [facility]ps [facility] 05/31/20 18 2017 Inactive 50/container Calcium 600-D3 Plus 600 mg calcium-800 unit-50 mg tablet RxNorm: 1 Tablet(s) PO daily take an additonal tablet for itching. 05/31/20 18 2017 Inactive hydrochlorothiazide 12.5 mg tablet RxNorm: 255970 1 Tablet(s) PO QAM 05/31/20 18 2017 Inactive Flintstones Complete (iron) 18 mg iron chewable tablet RxNorm: 1 Tablet(s) PO daily 05/31/20 18 2017 Inactive sertraline 50 mg tablet RxNorm: 854142 1 Tablet(s) PO daily 11/28/19 20 2019 Inactive d-mannose oral powder RxNorm: PO 18 2021 Inactive True Metrix Glucose Meter RxNorm: miscellaneous 08/17/20 19 2018 Inactive loperamide 2 mg tablet RxNorm: 155661 oral 09/29/20 19 2018 Inactive Symbicort 160 mcg-4.5 mcg/actuation HFA aerosol inhaler RxNorm: 6269358 2 Puff(s) INH BID 08/17/20 19 2018 Inactive Medication Administered No Medication Administered data Procedures Procedure Codes Date [place] Fany Assessment CPT-4: DSWA 10/03 Hypertension CPT-4: HTN 10/17/2019 Fall Risk Assessment SNOMED CT: 79045105 4 CPT-4: DFRA09/19/2019Functional AssessmentCPT-4: DFA111/20/2018Urinalysis, dip stickCPT-4: 914674506/21/2019Tobacco Assessment/ScreeningCPT-4: TCA05/24/2019 Patient Health QuestionnaireCPT-4: DPHQ05/24/2019AHA/REBECCA Classification AssessmentCPT-4: DAHA04/25/2019Controlled Substance ReportCPT-4: CTRSU04/25/2019 Urinalysis, dip stickCPT-4: 0710584Urinalysis, dip stickCPT-4: 48959 03/28/20193450X9D-ViqtihgdwglkddbGJH-7: 17454IxtkwoaK2N-QnahkiwlwcfilbbZKE-9: [address]: 354016545 CPT-4: Z03Wqkmlvo Reason For Visit No Reason For Visit data Plan of Care Planned Activity Notes Codes Status Date Patient Education: Patient Medication Summary Nsuujzpkp67/27/2020Appointment: Anna Culver WPtel: [address] [place], [place] [id number]: Anna Culver WPtel: [address] [place] [address] [id number]: Sudha Hernadez WPtel: [address] [facility] 202b [id number]: Sudha Hernadez WPtel: [address] [facility] b [id number]: Charlene Oropeza WPtel: [address] [facility] [id number]: Danny WfvixuD13225/26/2019Appointment: Charlene Oropeza WPtel: [address] [facility] b [id number]: Javy Rasta WPtel: [address] [facility] [id number]: Daltonrichsang Rasta WPtel: [address] [facility] [id number]: Javy Rasta WPtel: [address] [facility] [id number]: Javy Rasta WPtel: [address] [facility] [id number]: Pending Gynecology Referral InformationReferral ProcessedReferral: Pending Pulmonology Referral InformationReferralProcessed Referral: Pending Psychiatry Referral InformationReferralInitiatedReferral: Pending Respiratory Services Referral InformationReferralInitiatedReferral: Pending Ophthalmology Referral InformationReferralInitiatedReferral: [facility] WPtel: [address] USWriter placed a call out to the patient to notify her that it has been recommended that she be seenby 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 Patient agreed to be seen, does not have a provider of choice and no transportationissues. Test Bore Helper faxed referral and clinical notes to [facility] in [place], [place] near the patient's home. Patient to [...] and prefers a provider in the [place] area. Test Bore Helper placed a call out to everyone listed in the area and the only location that was able to accept the patient's insurance was [address] [address] and spoke with Maylin. Maylin asked that the patient's referral, face sheet and visit notes be faxed to . Test Bore Helper faxed over requested documents. Patient appointment confirmation letter generated and mailed to her home address. Patient to call to schedule an appointment.ProcessedReferral: [facility] WPtel: [address] [place] [address] [place], [place] [id number] USPatient notified that it has been advised that she be seen by Neurology. Patient agreed to be seen and prefers to be seen by a provider in the [place], [place] area. Patient denies any concerns with transportation, and prefers to schedule her own appointment. Test Bore Helper placed a call out to [facility] and spoke with Neeraj P: who confirmed that their office is able to acceptnew patients and the patient's insurance. After confirming the providers fax number, display card writer faxed over the patient's referral, and [...]
--- OUTSIDE RECORDS SUMMARY | 2023-12-07 02:09 | XMS_ITS | CCD ---
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 President [employer] Name Role Phone Palomo KING, Anna Primary Care Provider Unav ailable Unavailable Chronic Care Management Unavaila ble Summary Purpose DataExchange Insurance Providers Payer name Policy type / Coverage type Covered green party ID Effective Begin Date Effective End Date [facility] [id number] Unknown Unknown Family history Mother Diagnosis Age [...] 05/31/2018 Education level Unknown Some High School 10th05/31/20189698OsrmfkafwfAijapkxBjmrauurqk15/29/2018Tobacco historySNOMED CT: 085893606Pfh never smoked or chewed szhldnp5505/31/2018Alcohol historySNOMED CT: 215850055Updpa drinks bgsmgxb1205/31/2018Has the patient ever used illegal drugs? UnknownHas never used illegal drugs05/31/2018DNR Order/ Advanced Directive UnknownFull Code05/31/2018 Allergies, Adverse Reactions, Alerts Substance Reaction Codes Entered Date Inactivated Date Status *No known food allergies Rsqglnt6509/06/2018No Inactive DateActiveMethylprednisolonehivesRxNorm: 6902 09/06/2018No Inactive DateActive Problems Condition Codes Effective Dates Condition St atus Fecal incontinence ICD-10: R15.9 ICD-9: 787.6003ActiveMixed incontinenceICD-10: N39.46 ICD-9: 788.3308ActiveDiarrheaICD-10: R19.7 ICD-9: 787.9112ActiveAdjustment disorder with mixed anxiety and depressed moodICD-10: F43.23 ICD-9: 309.2812ActiveAdult BMI 50.0-59.9 kg/sq mICD-10: Z68.43 ICD-9: V85.4308ActiveHypertensive heart disease with heart failureICD- 10: I11.0 ICD-9: 402.9107ActiveType 2 diabetes mellitus with peripheral neuropathy ICD-10: E11.42 ICD-9: 250.6002ActiveType 2 diabetes mellitus without complicationsICD- 10: E11.9 ICD-9: 250.0001ActiveSinusitisICD-10: J32.9 ICD-9: 473.9011/07/2019ActiveAsthmaICD-10: J45.909 ICD-9: 493.9011ActiveEssential (primary) hypertensionICD-10: I10 ICD-9: 401.901ActiveObstructive sleep apnea (adult) (pediatric)ICD-10: G47.33 ICD-9: 327.2309ActiveChronic kidney disease, unspecifiedICD-10: N18.9 ICD-9: 585.909ActiveGERD (gastroesophageal reflux disease)ICD-10: K21.9 ICD-9: 530.8112ActiveAcute upper respiratory infection, unspecifiedICD- 10: J06.9 ICD-9: 465.912ActiveHypothyroidism, unspecifiedICD-10: E03.9 ICD-9: 244.912ActiveHyperlipidemia, unspecifiedICD-10: E78.5 ICD-9: 272.408ActiveApnea, not elsewhere classifiedICD-10: R06.81 ICD-9: 786.0305ActiveEncounter for immunizationICD-10: Z23 ICD-9: V03.907ActiveEncounter for screening, unspecifiedICD-10: Z13.9 ICD-9: V82.912ActivePolyneuropathy, unspecifiedICD-10: G62.9 ICD-9: 356.908/ActivePatient Not SeenICD-10: UXZ.01 ICD-9: XZ0.107ActiveEncounter for screening for malignant neoplasm of cervixICD-10: Z12.4 ICD-9: V76.207/ActiveOther meterman (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ICD-10: Z79.899 ICD-9: V58.6907/ActiveChest pain, unspecifiedICD-10: R07.9 ICD-9: 786.5002/ActiveEncounter for preprocedural cardiovascular examinationICD-10: Z01.810 ICD-9: V72.8106ActiveDyspnea, unspecifiedICD-10: R06.00 ICD-9: 786.0905ActivePost-traumatic stress disorder, unspecifiedICD-10: F43.10 ICD-9: 309.8112ActiveWheezingICD-10: R06.2 ICD-9: 786.0711ActiveAbnormal electrocardiogram [ECG] [EKG]ICD-10: R94.31 ICD-9: 794.3108ActiveEdema, unspecifiedICD-10: R60.9 ICD-9: 782.310/06/2018ActiveHeadacheICD-10: R51 ICD-9: 784.001ActiveLong term (current) use of non-steroidal anti- inflammatories (NSAID)ICD-10: Z79.1 ICD-9: V58.6409Active Medications Medication Codes Instructions Start Date Stop Date Status Fill Instructions hydrochlorothiazide 25 mg tablet RxNorm: 999827 1 Tablet(s) Oral every day 12/21/19 20 2019 Inactive Sudafed 12 Hour 120 mg tablet,extended release RxNorm: 3438784 TAKE (1) TABLET BY MOUTH EVERY 12 HOURS NEEDED 12/21/19 20 2019 Inactive loperamide 2 mg tablet RxNorm: 984005 1 Tablet(s) Oral as needed take one tablet after each loose stool, maximum of 8 tablets in 24 hours 12/11/19 20 2019 Inactive loperamide 2 mg tablet RxNorm: 714371 1 Tablet(s) Oral as needed take one tablet after each loose stool, maximum of 8 tablets in 24 hours 12/11/19 20 2019 Inactive atorvastatin 40 mg tablet RxNorm: 461972 1 Tablet(s) Oral every day 11/29/19 20 2020 Inactive quetiapine 100 mg tablet RxNorm: 705503 1 Tablet(s) Oral every night at bedtime 11/28/19 20 2019 Inactive sertraline 100 mg tablet RxNorm: 445138 1 Tablet(s) Oral 11/28/19 20 2019 Inactive omeprazole 20 mg capsule,delayed release RxNorm: 881241 1 Capsule(s) Oral every day 11/20/19 20 2019 Inactive amoxicillin 250 mg capsule RxNorm: 718245 1 Capsule(s) Oral three times a day 11/07/19 20 2019 Inactive multivitamin with iron-mineral tablet RxNorm: 1 Tablet(s) Oral every day 10/29/19 20 2021 Inactive cetirizine 10 mg tablet RxNorm: 2305633 1 Tablet(s) PO daily 10/20/19 20 2019 Inactive This refill negates all other refills of this medication. Please do not auto refill Singulair 10 mg tablet RxNorm: 430836 1 Tablet(s) PO daily 10/20/19 20 2019 Inactive This refill negates all other refills of this medication gabapentin 300 mg capsule RxNorm: 257812 1 Capsule(s) PO TID 10/20/19 20 2019 Inactive lisinopril 2.5 mg tablet RxNorm: 123248 1 Tablet(s) PO daily 10/20/19 20 2019 Inactive levothyroxine 50 mcg tablet RxNorm: 587581 1 Tablet(s) PO daily 10/20/19 20 2019 Inactive This refill negates all other refills of this medication fenugreek seed extract 500 mg capsule RxNorm: 1 Capsule(s) Oral three times a day 10/17/19 2021 Inactive hydrochlorothiazide 25 mg tablet RxNorm: 556436 1 Tablet(s) Oral every day 10/17/19 20 2019 Inactive Alcohol Prep Pads RxNorm: 378763 1 Patch TOP QAM 10/16/19 20 2020 Inactive loperamide 2 mg tablet RxNorm: 685797 1 Tablet(s) Oral as needed take one [...] 09/19/202019 Inactive hydrochlorothiazide 25 mg tablet RxNorm: 153642 1 Tablet(s) Oral every day 09/19/202019 Inactive Sudafed 12 Hour 120 mg tablet,extended release RxNorm: 2720776 1 Tablet(s) Oral every 12 hours as needed 09/11/20 19 2018 Inactive omeprazole 20 mg capsule,delayed release RxNorm: 484931 1 Capsule(s) Oral every day 09/07/20 19 2019 Inactive Sudafed 12 Hour 120 mg tablet,extended release RxNorm: 4513476 1 Tablet(s) Oral every 12 hours as needed 09/04/20 19 2018 Inactive pantoprazole 40 mg tablet,delayed release RxNorm: 700182 1 Tablet(s) Oral every day 08/24/202018 Inactive discontinue any other H2Blkr. and PPI albuterol sulfate 2.5 mg/3 mL (0.083 %) solution for nebulization RxNorm: 207449 1 Vial Inhalation every four hours as needed as needed for dyspnea 08/17/20 19 2019 Inactive 60/box. This refill negates all other refills of this medication. Please do not fill early. Please do not auto refill. Symbicort 160 mcg-4.5 mcg/actuation HFA aerosol inhaler RxNorm: 7071860 2 Puff(s) INH BID 08/17/20 19 No Stop Date Active Alcohol Prep Pads RxNorm: 408322 1 Patch TOP QAM 08/17/20 19 2019 Inactive True Metrix Glucose Test Strip RxNorm: 1 Test Strips Miscellaneous QAM 08/09/20 19 2019 Inactive 100/container Ventolin HFA 90 mcg/actuation aerosol inhaler RxNorm: 763282 2 Puff(s) INH QID 08/09/20 19 2019 Inactive Please do not fill early. Please do not auto refill. This refill negates all other refills of this medication atorvastatin 40 mg tablet RxNorm: 516075 1 Tablet(s) Oral every day 07/04/20 19 2019 Inactive levmetamfetamine 50 mg nasal inhaler RxNorm: 1 Unit(s) NASAL Q3-4H Do not use more than every 3 hours or 8 times/24hours 06/26/20 19 2021 Inactive Please do not auto refill. This refill negates all other refills of this medication diclofenac sodium 75 mg tablet,delayed release RxNorm: 780350 1 Tablet(s) PO BID 06/26/20 19 2019 Inactive This refill negates all other refills of this medication buspirone 7.5 mg tablet RxNorm: 508165 1 Tablet(s) PO BID 06/26/20 19 2020 Inactive This refill negates all other refills of this medication hydrochlorothiazide 12.5 mg tablet RxNorm: 059296 1 Tablet(s) PO QAM 06/26/20 19 2019 Inactive Ventolin HFA 90 mcg/actuation aerosol inhaler RxNorm: 327815 2 Puff(s) INH QID 06/26/20 19 2018 Inactive Please do not fill early. Please do not auto refill. This refill negates all other refills of this medication Singulair 10 mg tablet RxNorm: 473923 1 Tablet(s) PO daily 06/26/20 19 2019 Inactive This refill negates all other refills of this medication cetirizine 10 mg tablet RxNorm: 1583253 1 Tablet(s) PO daily 06/26/20 19 2019 Inactive This refill negates all other refills of this medication. Please do not auto refill levothyroxine 50 mcg tablet RxNorm: 379316 1 Tablet(s) PO daily 06/26/20 19 2019 Inactive This refill negates all other refills of this medication ranitidine 150 mg tablet RxNorm: 768201 1 Tablet(s) PO BID 06/26/20 19 2018 Inactive This refill negates all other refills of this medication Calcium 600-D3 Plus (mag-zinc) 600 mg calcium-800 unit-50 mg tablet RxNorm: 1 Tablet(s) PO daily take an additonal tablet for itching. 06/26/20 19 2018 Inactive This refill negates all other refills of this medication albuterol sulfate 2.5 mg/3 mL (0.083 %) solution for nebulization RxNorm: 992618 1 Vial INH QID 06/26/20 19 2018 Inactive 60/box. This refill negates all other refills of this medication. Please do not fill early. Please do not auto refill. lisinopril 2.5 mg tablet RxNorm: 158119 1 Tablet(s) PO daily 06/21/20 19 2019 Inactive gabapentin 300 mg capsule RxNorm: 456298 1 Capsule(s) PO TID 06/21/20 19 2019 Inactive atorvastatin 20 mg tablet RxNorm: 841974 1 Tablet(s) PO QHS 06/07/20 19 2018 Inactive This refill negates all other refills of this medication TRUEplus Lancets 30 gauge RxNorm: 1 Lancets Miscellaneous QAM 05/29/20 19 2018 Inactive 100/box gabapentin 300 mg capsule RxNorm: 608715 1 Capsule(s) PO TID 05/03/20 19 2018 Inactive Flintstones Complete (iron) 18 mg iron chewable tablet RxNorm: 1 Tablet(s) PO daily 04/04/20 19 2021 Inactive This refill negates all other refills of this medication gabapentin 300 mg capsule RxNorm: 498103 1 Capsule(s) PO TID as needed 02/01/20 19 2018 Inactive True Metrix Glucose Test Strip RxNorm: 1 Test Strips Miscellaneous QAM 02/01/20 19 2018 Inactive 100/container Alcohol Prep Pads RxNorm: 394226 1 Patch TOP QAM 02/01/20 19 2018 Inactive TRUEplus Lancets 30 gauge RxNorm: 1 Lancets Miscellaneous QAM 02/01/20 19 2018 Inactive 100/box lisinopril 2.5 mg tablet RxNorm: 398461 1 Tablet(s) PO daily 12/28/19 19 2018 Inactive ranitidine 150 mg tablet RxNorm: 418744 1 Tablet(s) PO BID 10/21/192018 Inactive This refill negates all other refills of this medication albuterol sulfate 2.5 mg/3 mL (0.083 %) solution for nebulization RxNorm: 769023 1 Vial INH QID 10/21/192018 Inactive 60/box. [...] this medication gabapentin 300 mg capsule RxNorm: 789805 1 Capsule(s) PO TID as needed 10/21/192018 Inactive atorvastatin 20 mg tablet RxNorm: 615004 1 Tablet(s) PO QHS 10/21/19 19 2018 Inactive This refill negates all other refills of this medication trazodone 50 mg tablet RxNorm: 351734 1 Tablet(s) PO QHS 10/21/192018 Inactive This refill negates all other refills of this medication Ventolin HFA 90 mcg/actuation aerosol inhaler RxNorm: 340416 2 Puff(s) INH QID 10/21/192018 Inactive Please do not fill early. Please do not auto refill. This refill negates all other refills of this medication Calcium 600-D3 Plus 600 mg calcium-800 unit-50 mg tablet RxNorm: 1 Tablet(s) PO daily take an additonal tablet for itching. 10/21/192018 Inactive This refill negates all other refills of this medication Singulair 10 mg tablet RxNorm: 995471 1 Tablet(s) PO daily 10/21/192018 Inactive This refill negates all other refills of this medication buspirone 7.5 mg tablet RxNorm: 506561 1 Tablet(s) PO BID 10/21/192018 Inactive This refill negates all other refills of this medication diclofenac sodium 75 mg tablet,delayed release RxNorm: 010695 1 Tablet(s) PO BID 10/21/192018 Inactive This refill negates all other refills of this medication hydrochlorothiazide 12.5 mg tablet RxNorm: 462616 1 Tablet(s) PO QAM 10/21/192018 Inactive metoprolol succinate ER 50 mg tablet,extended release 24 hr RxNorm: 687545 1 Tablet(s) PO daily 10/21/192018 Inactive This refill negates all other refills of this medication levothyroxine 50 mcg tablet RxNorm: 711408 1 Tablet(s) PO daily 10/21/192018 Inactive This refill negates all other refills of this medication cetirizine 10 mg tablet RxNorm: 3843788 1 Tablet(s) PO daily 10/21/192018 Inactive This refill negates all other refills of this medication. Please do not auto refill Flintstones Complete (iron) 18 mg iron chewable tablet RxNorm: 1 Tablet(s) PO daily 10/21/192018 Inactive This refill negates all other refills of this medication buspirone 7.5 mg tablet RxNorm: 882205 1 Tablet(s) PO BID 10/12/19 19 2018 Inactive cetirizine 10 mg tablet RxNorm: 5862358 1 Tablet(s) PO daily 09/28/20 18 2018 Inactive Guaiasorb DM 10 mg-100 mg/5 mL oral liquid RxNorm: 383788 10 Milliliter(s) PO As needed every 4 hr 09/24/20 18 2018 Inactive Vicks Vaporub 4.7 %-1.2 %-2.6 % topical ointment RxNorm: 2526147 1 Application TOP TID 09/24/20 18 2018 Inactive levmetamfetamine 50 mg nasal inhaler RxNorm: 1 Unit(s) NASAL Q3-4H 09/24/20 18 2017 Inactive sertraline 50 mg tablet RxNorm: 432776 1 Tablet(s) PO daily 09/09/20 18 2018 Inactive Please note dose trazodone 50 mg tablet RxNorm: 623463 1 Tablet(s) PO QHS 09/06/20 18 2018 Inactive sertraline 50 mg tablet RxNorm: 105492 1 Tablet(s) PO daily 09/06/20 18 2017 Inactive amoxicillin 500 mg tablet RxNorm: 027464 1 Tablet(s) PO Q12H 08/31/20 18 2017 Inactive albuterol sulfate 2.5 mg/3 mL (0.083 %) solution for nebulization RxNorm: 223892 1 Vial INH QID 08/10/20 18 2018 Inactive 60/box. Please do not fill early. Please do not auto refill. Prozac 10 mg capsule RxNorm: 191792 1 Capsule(s) PO daily 08/09/20 18 2017 Inactive buspirone 7.5 mg tablet RxNorm: 220696 1 Tablet(s) PO BID 08/09/20 18 2018 Inactive gabapentin 300 mg capsule RxNorm: 581173 1 Capsule(s) PO TID as needed 08/01/20 18 2018 Inactive hydrochlorothiazide 12.5 mg tablet RxNorm: 582634 1 Tablet(s) PO QAM 08/01/20 18 2018 Inactive ranitidine 150 mg tablet RxNorm: 729090 1 Tablet(s) PO BID 08/01/20 18 2018 Inactive Macrobid 100 mg capsule RxNorm: 137193 1 Capsule(s) PO Q12H 06/21/20 18 2017 Inactive Singulair 10 mg tablet RxNorm: 755773 1 Tablet(s) PO daily 06/14/20 18 2018 Inactive Ventolin HFA 90 mcg/actuation aerosol inhaler RxNorm: 1884292 2 Puff(s) INH QID 06/14/20 18 2018 Inactive Singulair 10 mg tablet RxNorm: 046990 1 Tablet(s) PO daily 06/14/20 18 2017 Inactive buspirone 7.5 mg tablet RxNorm: 876749 1 Tablet(s) PO BID 06/14/20 18 2017 Inactive Prozac 10 mg capsule RxNorm: 159232 1 Capsule(s) PO daily 06/14/20 18 2017 Inactive Neilmed Pediatric Sinus Rinse Refill packet RxNorm: 1 Unit Dose NASAL PRN 05/31/20 18 2021 Inactive diclofenac sodium 75 mg tablet,delayed release RxNorm: 144494 1 Tablet(s) PO BID 05/31/20 18 2017 Inactive lisinopril 2.5 mg tablet RxNorm: 286772 1 Tablet(s) PO daily 05/31/20 18 2017 Inactive metoprolol succinate ER 50 mg tablet,extended release 24 hr RxNorm: 663029 1 Tablet(s) PO daily 05/31/20 18 2017 Inactive levothyroxine 50 mcg tablet RxNorm: 338572 1 Tablet(s) PO daily 05/31/20 18 2017 Inactive TRUEplus Lancets 30 gauge RxNorm: 1 Lancets Miscellaneous QAM 05/31/20 18 2017 Inactive 100/box Ventolin HFA 90 mcg/actuation aerosol inhaler RxNorm: 157757 2 Puff(s) INH QID 05/31/20 18 2017 Inactive Aleve 220 mg capsule RxNorm: 6197309 1 Capsule(s) PO BID 05/31/20 18 2018 Inactive ranitidine 150 mg tablet RxNorm: 062950 1 Tablet(s) PO BID 05/31/20 18 2017 Inactive gabapentin 300 mg capsule RxNorm: 976998 1 Capsule(s) PO TID as needed 05/31/20 18 2017 Inactive atorvastatin 20 mg tablet RxNorm: 864383 1 Tablet(s) PO QHS 05/31/20 18 2017 Inactive True Metrix Glucose Test Strip RxNorm: 1 Test Strips Miscellaneous QAM 05/31/20 18 2017 Inactive 50/container Calcium 600-D3 Plus 600 mg calcium-800 unit-50 mg tablet RxNorm: 1 Tablet(s) PO daily take an additonal tablet for itching. 05/31/20 18 2017 Inactive hydrochlorothiazide 12.5 mg tablet RxNorm: 560250 1 Tablet(s) PO QAM 05/31/20 18 2017 Inactive Flintstones Complete (iron) 18 mg iron chewable tablet RxNorm: 1 Tablet(s) PO daily 05/31/20 18 2017 Inactive d-mannose oral powder RxNorm: PO 18 2021 Inactive True Metrix Glucose Meter RxNorm: miscellaneous 08/17/20 19 2018 Inactive sertraline 50 mg tablet RxNorm: 189181 1 Tablet(s) PO daily 11/28/19 20 2019 Inactive loperamide 2 mg tablet RxNorm: 168568 oral 09/29/20 19 2018 Inactive Symbicort 160 mcg-4.5 mcg/actuation HFA aerosol inhaler RxNorm: 5874968 2 Puff(s) INH BID 08/17/20 19 2018 Inactive Medication Administered No Medication Administered data Procedures Procedure Codes Date [place] Fany Assessment CPT-4: DSWA 11/04 Patient Health Questionnaire CPT-4: DPHQ [place] Fany Assessment CPT-4: DSWA 10/03 Hypertension CPT-4: HTN 10/17/2019 Fall Risk Assessment SNOMED CT: 33921930 4 CPT-4: DFRA09/19/2019Functional AssessmentCPT-4: DFA111/20/2018Urinalysis, dip stickCPT-4: 1136411Tobacco Assessment/ScreeningCPT-4: TCA05/24/2019 Patient Health QuestionnaireCPT-4: DPHQ05/24/2019AHA/REBECCA Classification AssessmentCPT-4: DAHA04/25/2019Controlled Substance ReportCPT-4: CTRSU04/25/2019 Urinalysis, dip stickCPT-4: 4601033Urinalysis, dip stickCPT-4: 99736 03/28/20195504T4Z-LohkxqrnhhcobkeXNY-8: 34269FksaqewX4H-DujgaojzodgkkvlUBS-5: [address]: 903348499 CPT-4: C55Nyqwqel Reason For Visit No Reason For Visit data Plan of Care Planned Activity Notes Codes Status Date Referral: Pending Gynecology Referral Informatio n Referral ProcessedReferral: Pending Pulmonology Referral InformationReferralProcessed Referral: Pending Psychiatry Referral InformationReferralInitiatedReferral: Pending Respiratory Services Referral InformationReferralInitiatedReferral: Pending Ophthalmology Referral InformationReferralInitiatedReferral: [facility] WPtel: [address] [place] [address] [id number] USWriter placed a call out to the patient to notify her that it has been recommended that she be seenby 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 Patient agreed to be seen, does not have a provider of choice and no transportationissues. Lab Aide faxed referral and clinical notes to [facility] in [place], [place] near the patient's home. Patient to [...] seen and prefers a provider in the [place] or [place] area. Lab Aide placed a call out to everyone listed in the area and the only location that was able to accept the patient's insurance was [facility] [address] [place] [address] and spoke with Maylin. Maylin asked that the patient's referral, face sheet and visit notes be faxed to . Lab Aide faxed over requested documents. Patient appointment confirmation letter generated and mailed to her home address. Patient to call to schedule an appointment.ProcessedReferral: [facility] WPtel: [address] [place], [place] [id number] USPatient notified that it has been advised that she be seen by Neurology. Patient agreed to be seen and prefers to be seen by a provider in the [place], [place] area. Patient denies any concerns with transportation, and prefers to schedule her own appointment. Lab Aide placed a call out to [facility] and spoke with Neeraj [...]
--- OUTSIDE RECORDS SUMMARY | 2023-12-07 02:09 | XMS_ITS | CCD ---
Author Name Leena Culver NP Address [address] [place] [address] [place] [id number] Phone Organization [employer] [facility] Phone Care Team Providers Care Snaker Driving Horses Name Role Phone Anna Culver NP Primary Care Provider Unav ailable Unavailable Chronic Care Management Unavaila ble Summary Purpose DataExchange Insurance Providers Payer name Policy type / Coverage type Covered libertarian ID Effective Begin Date Effective End Date SUKI MAYO [id number] Unknown Unknown Family history Mother Diagnosis Age [...] 05/31/2018 Education level Unknown Some High School 10th05/31/20185804AepzmqbytxEdvemnoNiofgnwsyg84/29/2018Tobacco historySNOMED CT: 575756990Bdt never smoked or chewed lajsyoi1605/31/2018Alcohol historySNOMED CT: 375953691Frwnp drinks wazlabt5505/31/2018Has the patient ever used illegal drugs? UnknownHas never used illegal drugs05/31/2018DNR Order/ Advanced Directive UnknownFull Code05/31/2018 Allergies, Adverse Reactions, Alerts Substance Reaction Codes Entered Date Inactivated Date Status *No known food allergies Mcnxjbo0209/06/2018No Inactive DateActiveMethylprednisolonehivesRxNorm: 6902 09/06/2018No Inactive DateActive Problems Condition Codes Effective Dates Condition St atus Adjustment disorder with mixed anxiety a nd depressed mood ICD-10: F43.23 ICD-9: 309.28111/06/2017ActiveAdult BMI 50.0-59.9 kg/sq mICD-10: Z68.43 ICD-9: V85.4308ActiveHypertensive heart disease with heart failureICD- 10: I11.0 ICD-9: 402.9107ActiveType 2 diabetes mellitus with peripheral neuropathy ICD-10: E11.42 ICD-9: 250.6002ActiveType 2 diabetes mellitus without complicationsICD- 10: E11.9 ICD-9: 250.0001ActiveSinusitisICD-10: J32.9 ICD-9: 473.902ActiveAsthmaICD-10: J45.909 ICD-9: 493.9011ActiveEssential (primary) hypertensionICD-10: I10 ICD-9: 401.901ActiveObstructive sleep apnea (adult) (pediatric)ICD-10: G47.33 ICD-9: 327.2309ActiveDiarrheaICD-10: R19.7 ICD-9: 787.9112ActiveChronic kidney disease, unspecifiedICD-10: N18.9 [...] malignant neoplasm of cervixICD-10: Z12.4 ICD-9: V76.207/ActiveOther mcfp (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ICD-10: Z79.899 ICD-9: V58.6907/ActiveChest pain, [...] Start Date Stop Date Status Fill Instructions quetiapine 100 mg tablet RxNorm: 492163 1 Tablet(s) Oral every night at bedtime 11/28/19 20 2019 Inactive sertraline 100 mg tablet RxNorm: 726231 1 Tablet(s) Oral 11/28/19 20 2019 Inactive omeprazole 20 mg capsule,delayed release RxNorm: 944687 1 Capsule(s) Oral every day 11/20/19 2019 Inactive amoxicillin 250 mg capsule RxNorm: 199398 1 Capsule(s) Oral three times a day 11/07/19 20 2019 Inactive multivitamin with iron-mineral tablet RxNorm: 1 Tablet(s) Oral every day 10/29/19 20 2021 Inactive cetirizine 10 mg tablet RxNorm: 7695736 1 Tablet(s) PO daily 10/20/19 20 2019 Inactive This refill negates all other refills of this medication. Please do not auto refill Singulair 10 mg tablet RxNorm: 568523 1 Tablet(s) PO daily 10/20/19 20 2019 Inactive This refill negates all other refills of this medication gabapentin 300 mg capsule RxNorm: 040150 1 Capsule(s) PO TID 10/20/19 20 2019 Inactive lisinopril 2.5 mg tablet RxNorm: 803060 1 Tablet(s) PO daily 10/20/19 20 2019 Inactive levothyroxine 50 mcg tablet RxNorm: 017622 1 Tablet(s) PO daily 10/20/19 20 2019 Inactive This refill negates all other refills of this medication hydrochlorothiazide 25 mg tablet RxNorm: 646722 1 Tablet(s) Oral every day 10/17/19 20 2019 Inactive fenugreek seed extract 500 mg capsule RxNorm: 1 Capsule(s) Oral three times a day 10/17/19 20 2021 Inactive Alcohol Prep Pads RxNorm: 233956 1 Patch TOP QAM 10/16/19 20 2020 Inactive loperamide 2 mg tablet RxNorm: 067328 1 Tablet(s) Oral as needed take one [...] 2019 Inactive hydrochlorothiazide 25 mg tablet RxNorm: 093979 1 Tablet(s) Oral every day 09/19/20 19 2019 Inactive Sudafed 12 Hour 120 mg tablet,extended release RxNorm: 2873280 1 Tablet(s) Oral every 12 hours as needed 09/11/20 19 2018 Inactive omeprazole 20 mg capsule,delayed release RxNorm: 705021 1 Capsule(s) Oral every day 09/07/20 19 2019 Inactive Sudafed 12 Hour 120 mg tablet,extended release RxNorm: 7870831 1 Tablet(s) Oral every 12 hours as needed 09/04/20 19 2018 Inactive pantoprazole 40 mg tablet,delayed release RxNorm: 762788 1 Tablet(s) Oral every day 08/24/20 19 2018 Inactive discontinue any other H2Blkr. and PPI albuterol sulfate 2.5 mg/3 mL (0.083 %) solution for nebulization RxNorm: 347223 1 Vial Inhalation every four hours as needed as needed for dyspnea 08/17/20 19 2019 Inactive 60/box. This refill negates all other refills of this medication. Please do not fill early. Please do not auto refill. Symbicort 160 mcg-4.5 mcg/actuation HFA aerosol inhaler RxNorm: 0820293 2 Puff(s) INH BID 08/17/20 19 No Stop Date Active Alcohol Prep Pads RxNorm: 159472 1 Patch TOP QAM 08/17/20 19 2019 Inactive True Metrix Glucose Test Strip RxNorm: 1 Test Strips Miscellaneous QAM 08/09/20 19 2019 Inactive 100/container Ventolin HFA 90 mcg/actuation aerosol inhaler RxNorm: 919059 2 Puff(s) INH QID 08/09/20 19 2019 Inactive Please do not fill early. Please do not auto refill. This refill negates all other refills of this medication atorvastatin 40 mg tablet RxNorm: 824436 1 Tablet(s) Oral every day 07/04/20 19 2019 Inactive levmetamfetamine 50 mg nasal inhaler RxNorm: 1 Unit(s) NASAL Q3-4H Do not use more than every 3 hours or 8 times/24hours 06/26/20 19 2021 Inactive Please do not auto refill. This refill negates all other refills of this medication diclofenac sodium 75 mg tablet,delayed release RxNorm: 741012 1 Tablet(s) PO BID 06/26/20 19 2019 Inactive This refill negates all other refills of this medication buspirone 7.5 mg tablet RxNorm: 358604 1 Tablet(s) PO BID 06/26/20 19 2020 Inactive This refill negates all other refills of this medication hydrochlorothiazide 12.5 mg tablet RxNorm: 956121 1 Tablet(s) PO QAM 06/26/20 19 2019 Inactive Ventolin HFA 90 mcg/actuation aerosol inhaler RxNorm: 947654 2 Puff(s) INH QID 06/26/20 19 2018 Inactive Please do not fill early. Please do not auto refill. This refill negates all other refills of this medication Singulair 10 mg tablet RxNorm: 105373 1 Tablet(s) PO daily 06/26/20 19 2019 Inactive This refill negates all other refills of this medication cetirizine 10 mg tablet RxNorm: 6610672 1 Tablet(s) PO daily 06/26/20 19 2019 Inactive This refill negates all other refills of this medication. Please do not auto refill levothyroxine 50 mcg tablet RxNorm: 380776 1 Tablet(s) PO daily 06/26/20 19 2019 Inactive This refill negates all other refills of this medication ranitidine 150 mg tablet RxNorm: 919149 1 Tablet(s) PO BID 06/26/20 19 2018 Inactive This refill negates all other refills of this medication Calcium 600-D3 Plus (mag-zinc) 600 mg calcium-800 unit-50 mg tablet RxNorm: 1 Tablet(s) PO daily take an additonal tablet for itching. 06/26/20 19 2018 Inactive This refill negates all other refills of this medication albuterol sulfate 2.5 mg/3 mL (0.083 %) solution for nebulization RxNorm: 089748 1 Vial INH QID 06/26/20 19 2018 Inactive 60/box. This refill negates all other refills of this medication. Please do not fill early. Please do not auto refill. lisinopril 2.5 mg tablet RxNorm: 464107 1 Tablet(s) PO daily 06/21/20 19 2019 Inactive gabapentin 300 mg capsule RxNorm: 320467 1 Capsule(s) PO TID 06/21/20 19 2019 Inactive atorvastatin 20 mg tablet RxNorm: 406068 1 Tablet(s) PO QHS 06/07/20 19 2018 Inactive This refill negates all other refills of this medication TRUEplus Lancets 30 gauge RxNorm: 1 Lancets Miscellaneous QAM 05/29/20 19 2018 Inactive 100/box gabapentin 300 mg capsule RxNorm: 896449 1 Capsule(s) PO TID 05/03/20 19 2018 Inactive Flnickolas Complete (iron) 18 mg iron chewable tablet RxNorm: 1 Tablet(s) PO daily 04/04/20 19 2021 Inactive This refill negates all other refills of this medication gabapentin 300 mg capsule RxNorm: 438019 1 Capsule(s) PO TID as needed 02/01/20 19 2018 Inactive True Metrix Glucose Test Strip RxNorm: 1 Test Strips Miscellaneous QAM 02/01/20 19 2018 Inactive 100/container Alcohol Prep Pads RxNorm: 011665 1 Patch TOP QAM 02/01/20 19 2018 Inactive TRUEplus Lancets 30 gauge RxNorm: 1 Lancets Miscellaneous QAM 02/01/20 19 2018 Inactive 100/box lisinopril 2.5 mg tablet RxNorm: 395624 1 Tablet(s) PO daily 12/28/192018 Inactive ranitidine 150 mg tablet RxNorm: 906137 1 Tablet(s) PO BID 10/21/19 19 2018 Inactive This refill negates all other refills of this medication albuterol sulfate 2.5 mg/3 mL (0.083 %) solution for nebulization RxNorm: 906253 1 Vial INH QID 10/21/192018 Inactive 60/box. [...] this medication gabapentin 300 mg capsule RxNorm: 478770 1 Capsule(s) PO TID as needed 10/21/192018 Inactive atorvastatin 20 mg tablet RxNorm: 723516 1 Tablet(s) PO QHS 10/21/192018 Inactive This refill negates all other refills of this medication trazodone 50 mg tablet RxNorm: 410152 1 Tablet(s) PO QHS 10/21/19 19 2018 Inactive This refill negates all other refills of this medication Ventolin HFA 90 mcg/actuation aerosol inhaler RxNorm: 083451 2 Puff(s) INH QID 10/21/192018 Inactive Please do not fill early. Please do not auto refill. This refill negates all other refills of this medication Calcium 600-D3 Plus 600 mg calcium-800 unit-50 mg tablet RxNorm: 1 Tablet(s) PO daily take an additonal tablet for itching. 10/21/192018 Inactive This refill negates all other refills of this medication Singulair 10 mg tablet RxNorm: 230530 1 Tablet(s) PO daily 10/21/192018 Inactive This refill negates all other refills of this medication buspirone 7.5 mg tablet RxNorm: 612758 1 Tablet(s) PO BID 10/21/19 19 2018 Inactive This refill negates all other refills of this medication diclofenac sodium 75 mg tablet,delayed release RxNorm: 296174 1 Tablet(s) PO BID 10/21/19 19 2018 Inactive This refill negates all other refills of this medication hydrochlorothiazide 12.5 mg tablet RxNorm: 147648 1 Tablet(s) PO QAM 10/21/192018 Inactive metoprolol succinate ER 50 mg tablet,extended release 24 hr RxNorm: 461336 1 Tablet(s) PO daily 10/21/19 19 2018 Inactive This refill negates all other refills of this medication levothyroxine 50 mcg tablet RxNorm: 892014 1 Tablet(s) PO daily 10/21/19 19 2018 Inactive This refill negates all other refills of this medication cetirizine 10 mg tablet RxNorm: 8958528 1 Tablet(s) PO daily 10/21/19 19 2018 Inactive This refill negates all other refills of this medication. Please do not auto refill Flintstones Complete (iron) 18 mg iron chewable tablet RxNorm: 1 Tablet(s) PO daily 10/21/19 19 2018 Inactive This refill negates all other refills of this medication buspirone 7.5 mg tablet RxNorm: 954876 1 Tablet(s) PO BID 10/12/192018 Inactive cetirizine 10 mg tablet RxNorm: 2900664 1 Tablet(s) PO daily 09/28/202018 Inactive Guaiasorb DM 10 mg-100 mg/5 mL oral liquid RxNorm: 782756 10 Milliliter(s) PO As needed every 4 hr 09/24/202018 Inactive Vicks Vaporub 4.7 %-1.2 %-2.6 % topical ointment RxNorm: 3781021 1 Application TOP TID 09/24/20 18 2018 Inactive levmetamfetamine 50 mg nasal inhaler RxNorm: 1 Unit(s) NASAL Q3-4H 09/24/2009/30/ 2018 Inactive sertraline 50 mg tablet RxNorm: 940354 1 Tablet(s) PO daily 09/09/20 18 2018 Inactive Please note dose trazodone 50 mg tablet RxNorm: 122638 1 Tablet(s) PO QHS 09/06/20 18 2018 Inactive sertraline 50 mg tablet RxNorm: 198378 1 Tablet(s) PO daily 09/06/20 18 2017 Inactive amoxicillin 500 mg tablet RxNorm: 540026 1 Tablet(s) PO Q12H 08/31/20 18 2017 Inactive albuterol sulfate 2.5 mg/3 mL (0.083 %) solution for nebulization RxNorm: 648504 1 Vial INH QID 08/10/20 18 2018 Inactive 60/box. Please do not fill early. Please do not auto refill. Prozac 10 mg capsule RxNorm: 749874 1 Capsule(s) PO daily 08/09/20 18 2017 Inactive buspirone 7.5 mg tablet RxNorm: 851524 1 Tablet(s) PO BID 08/09/20 18 2018 Inactive gabapentin 300 mg capsule RxNorm: 193074 1 Capsule(s) PO TID as needed 08/01/20 18 2018 Inactive hydrochlorothiazide 12.5 mg tablet RxNorm: 670968 1 Tablet(s) PO QAM 08/01/20 18 2018 Inactive ranitidine 150 mg tablet RxNorm: 264231 1 Tablet(s) PO BID 08/01/20 18 2018 Inactive Macrobid 100 mg capsule RxNorm: 698035 1 Capsule(s) PO Q12H 06/21/20 18 2017 Inactive Singulair 10 mg tablet RxNorm: 500446 1 Tablet(s) PO daily 06/14/20 18 2018 Inactive Ventolin HFA 90 mcg/actuation aerosol inhaler RxNorm: 1632086 2 Puff(s) INH QID 06/14/20 18 2018 Inactive Singulair 10 mg tablet RxNorm: 858645 1 Tablet(s) PO daily 06/14/20 18 2017 Inactive buspirone 7.5 mg tablet RxNorm: 225694 1 Tablet(s) PO BID 06/14/20 18 2017 Inactive Prozac 10 mg capsule RxNorm: 348160 1 Capsule(s) PO daily 06/14/20 18 2017 Inactive Neilmed Pediatric Sinus Rinse Refill packet RxNorm: 1 Unit Dose NASAL PRN 05/31/20 18 2021 Inactive diclofenac sodium 75 mg tablet,delayed release RxNorm: 560966 1 Tablet(s) PO BID 05/31/20 18 2017 Inactive lisinopril 2.5 mg tablet RxNorm: 222233 1 Tablet(s) PO daily 05/31/20 18 2017 Inactive metoprolol succinate ER 50 mg tablet,extended release 24 hr RxNorm: 149749 1 Tablet(s) PO daily 05/31/20 18 2017 Inactive levothyroxine 50 mcg tablet RxNorm: 570766 1 Tablet(s) PO daily 05/31/20 18 2017 Inactive TRUEplus Lancets 30 gauge RxNorm: 1 Lancets Miscellaneous QAM 05/31/20 18 2017 Inactive 100/box Ventolin HFA 90 mcg/actuation aerosol inhaler RxNorm: 410285 2 Puff(s) INH QID 05/31/20 18 2017 Inactive Aleve 220 mg capsule RxNorm: 6589667 1 Capsule(s) PO BID 05/31/20 18 2018 Inactive ranitidine 150 mg tablet RxNorm: 566521 1 Tablet(s) PO BID 05/31/20 18 2017 Inactive gabapentin 300 mg capsule RxNorm: 849167 1 Capsule(s) PO TID as needed 05/31/20 18 2017 Inactive atorvastatin 20 mg tablet RxNorm: 301230 1 Tablet(s) PO QHS 05/31/20 18 2017 Inactive True Metrix Glucose Test Strip RxNorm: 1 Test Strips Miscellaneous QAM 05/31/20 18 2017 Inactive 50/container Calcium 600-D3 Plus 600 mg calcium-800 unit-50 mg tablet RxNorm: 1 Tablet(s) PO daily take an additonal tablet for itching. 05/31/20 18 2017 Inactive hydrochlorothiazide 12.5 mg tablet RxNorm: 351692 1 Tablet(s) PO QAM 05/31/20 18 2017 Inactive Flmarktones Complete (iron) 18 mg iron chewable tablet RxNorm: 1 Tablet(s) PO daily 05/31/20 18 2017 Inactive d-mannose oral powder RxNorm: PO 18 2021 Inactive True Metrix Glucose Meter RxNorm: miscellaneous 08/17/20 19 2018 Inactive sertraline 50 mg tablet RxNorm: 585062 1 Tablet(s) PO daily 11/28/19 20 2019 Inactive loperamide 2 mg tablet RxNorm: 201654 oral 09/29/20 19 2018 Inactive Symbicort 160 mcg-4.5 mcg/actuation HFA aerosol inhaler RxNorm: 2556558 2 Puff(s) INH BID 08/17/20 19 2018 Inactive Medication Administered No Medication Administered data Procedures Procedure Codes Date [facility] Assessment CPT-4: DSWA 11/04 Patient Health Questionnaire CPT-4: DPHQ Patient Health [...] in some way?/0 = Not at all, Score:/0-4= Negative for depression- NO PLAN NEEDED, Plan:/*Active diagnosis of depressionCPT-4: SKPJSfdegen29/26/2020[place] Fany Assessment Sensation/6/10CPT-4: KDCIMgwnowh87/26/2020[place] Fany AssessmentCPT-4: DSWA 10/17/2019HypertensionCPT-4: HTN10/17/2019Fall Risk AssessmentSNOMED CT: 415644073 CPT-4: DFRA09/19/2019Functional AssessmentCPT-4: DFA111/20/2018Urinalysis, dip stickCPT-4: 5547755Tobacco Assessment/ScreeningCPT-4: TCA05/24/2019 Patient Health QuestionnaireCPT-4: DPHQ05/24/2019AHA/REBECCA Classification AssessmentCPT-4: DAHA04/25/2019Controlled Substance ReportCPT-4: CTRSU04/25/2019 Urinalysis, dip stickCPT-4: 643316803/28/2019Urinalysis, dip stickCPT-4: 71391 03/28/20196583U8R-HonmjjgioazclaeXPT-0: 20542BxvboetT4Y-HllhazkxcdyhproKNM-0: [address]: 549897823 CPT-4: L48Wfkzyfk Vital Signs Date Vital 11/28/2019 Blood Pressure 1: 120/85 Code: 8480-6 BMI: 58.8 Code: 26559-5 Heart Rate 1: 92 bpm Height: 4'11 Code: 8302-2 Respiratory Rate: 18 bpm SpO2: 97% Temperature: 36.4 (C) / 97.5 (F) Weight: 291 lbs Code: 38865-5 Reason For Visit Reason For Visit Effective Dates Notes hypertension 11/28/2019 diabetes mellitus 11/28/2019 Encounters Encounter Performer Location Location Address Codes Magdi e HOME VISIT EST PATIENT Diagnosis: Adjustment disorder with mixed anxiety and depressed mood[ICD10: F43.23] Diagnosis: Hypertensive heart disease with heart failure[ICD10: I11.0] Diagnosis: Adult BMI 50.0-59.9 kg/sq m[ICD10: Z68.43]Anna Bourgeois [address] [place] [address]JWA-9: 83753 11/28/2019 Plan of Care Planned Activity Notes Codes [...] loss, and limiting fried and greasy foods, 10/17/2019 GFR 90 E03.9-244.9 Hypothyroidism, unspecified cont levothyroxine N39.46-788.33 Mixed incontinence use of incontinence supplies E11.42-250.60 Type 2 diabetes mellitus with peripheral neuropathy fluctuating blood sugars, FBS 131 range 86-145, tests one time a day-advised to test at varied times throughout the day-BS logleft with patient 10/17/2019 Hemoglobin A1C 6.0 07/04/2019 Hgb A1C 5.6 10/17/2019 [place] Fany 7/10-instructed on good daily foot care Note callous formation to bilateral heels-instruct on application of lotion to feet routine follow up with , podiatry-diabetic shoe paperwork received, will mail when signed by MD routine podiatry ophthalmology referral initiated labs drawn, results pending G47.33-327.23 Obstructive sleep apnea (adult) (pediatric) J45.909-493.90 Asthma Recent ED visit for difficulty breathing-records requested continue inhalers and nebulizer wears cpap every night, believes that is helpful 10/22/2019 Dr. Garcia, pulmonology for chronic sleep apnea and asthma F43.23- 309.28 Adjustment disorder with mixed anxiety and depressedmood [place] [facility] [place] Z68.43-V85.43 Adult BMI 50.0-59.9 kg/sq m Letter Of Credit Clerk to visit to discuss portion control Advised to avoid soda and sweet tea-discuss Ice, carbonated drink as a substitute Discuss healthy carbs 11/28/2019Patient Education: Patient Medication SrjkvnbNqiylhawz37/26/2020 Patient Education: TpvdrzcoRhnxgfcyk19/26/2020Patient Education: Hypertension Dwfyiswel78/26/2020Appointment: Anna Culver WPtel: [address] [place] [address] [id number]: Anna Culver WPtel: [address] [place] [address] [id number]: Sudha Hernadez WPtel: [address] [facility] b [id number]: Maricarmen Lorimina WPtel: [address] [facility] [id number]: Charlene Oropeza WPtel: [address] [facility] [id number]: Arthur DelgadooE45Appointment: Charlene Oropeza WPtel: [address] [facility] [id number]: Javy Rasta WPtel: [address] [facility] [id number]: Javy Rasta WPtel: [address] [facility] b [id number]: Javy Rasta WPtel: [address] [facility] b [id number]: Javy Rasta WPtel: [address] [facility] b [id number]: Pending Gynecology Referral InformationReferral ProcessedReferral: Pending Pulmonology Referral InformationReferralProcessed Referral: Pending Psychiatry Referral InformationReferralInitiatedReferral: Pending Respiratory Services Referral InformationReferralInitiatedReferral: Pending Ophthalmology Referral InformationReferralInitiatedReferral: [facility] WPtel: [address] [facility] [address] [facility] USWriter placed a call out to the patient to notify her that it has been recommended that she be seenby 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 Patient agreed to be seen, does not have a provider of choice and no transportationissues. Puller Out faxed referral and clinical notes to [facility] in [place], [place] near the patient's home. Patient to [...] seen and prefers a provider in the [place] or [place] area. Puller Out placed a call out to everyone listed in the area and the only location that was able to accept the patient's insurance was [address] [address] and spoke with Maylin. Maylin asked that the patient's referral, face sheet and visit notes be faxed to . [employer]er Out faxed over requested documents. Patient appointment confirmation letter generated and mailed to her home address. Patient to call to schedule an appointment.ProcessedReferral: [facility] WPtel: [address] [facility] [address] [id number] USPatient notified that it has been advised that she be seen by Neurology. Patient agreed to be seen and prefers to be seen by a provider in the [place], [place] area. Patient denies any concerns with transportation, and prefers to schedule her own appointment. Puller Out placed a call out to [facility] and spoke with Neeraj [...] Podiatry Referral InformationReferralInitiated Instructions Comment Date . t N18.9-585.9 Chronic kidney disease, unspecified [...] loss, and limiting fried and greasy foods, 10/17/2019 GFR 90 E03.9-244.9 Hypothyroidism, unspecified cont levothyroxine N39.46-788.33 Mixed incontinence use of incontinence supplies E11.42-250.60 Type 2 diabetes mellitus with peripheral neuropathy fluctuating blood sugars, FBS 131 range 86-145, tests one time a day-advised to test at varied times throughout the day-BS log left with patient 10/17/2019 Hemoglobin A1C 6.0; 07/04/2019 Hgb A1C 5.6 10/17/2019 [place] Fany 7/10-instructed on good daily foot care Note callous formation to bilateral heels-instruct on application of lotion to feet routine follow up with Dr. Gonzales, podiatry-diabetic shoe paperwork received, will mail when signed by MD routine podiatry ophthalmology referral initiated labs drawn, results pending G47.33-327.23 Obstructive sleep apnea (adult) (pediatric); J45.909493.90 Asthma Recent ED visit for difficulty breathing-records requested continue inhalers and nebulizer wears cpap every night, believes that is helpful 10/22/2019 Dr. Garcia, pulmonology for chronic sleep apnea and asthma F43.23-309.28 Adjustment disorder with mixed anxiety and depressed mood [place] [facility] [place] Z68.43-V85.43 Adult BMI 50.0-59.9 kg/sq m Letter Of Credit Clerk to visit to discuss portion control Advised to avoid soda and sweet tea-discuss Ice, carbonated drink as a substitute Discuss healthy carbs 11/28/2019 Medical Equipment No Medical Equipment data Advance Directives No Advance Directive data
--- OUTSIDE RECORDS SUMMARY | 2023-12-07 02:09 | XMS_ITS | CCD ---
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 Caser In Name Role Phone Palomo KING, Anna Primary Care Provider Unav ailable Unavailable Chronic Care Management Unavaila ble Summary Purpose DataExchange Insurance Providers Payer name Policy type / Coverage type Covered constitution party ID Effective Begin Date Effective End Date [facility] [id number] Unknown Unknown Family history Mother Diagnosis Age [...] 05/31/2018 Education level Unknown Some High School 10th05/31/20182505YwolcgxgtiXjmqlyaNnkbyvbabg32/29/2018Tobacco historySNOMED CT: 751007241Qso never smoked or chewed fbmmdze0205/31/2018Alcohol historySNOMED CT: 844466245Zfkjq drinks oqsslso9005/31/2018Has the patient ever used illegal drugs? UnknownHas never used illegal drugs05/31/2018DNR Order/ Advanced Directive UnknownFull Code05/31/2018 Allergies, Adverse Reactions, Alerts Substance Reaction Codes Entered Date Inactivated Date Status *No known food allergies Ilxhcab1809/06/2018No Inactive DateActiveMethylprednisolonehivesRxNorm: 6902 09/06/2018No Inactive DateActive Problems Condition Codes Effective Dates Condition St atus Adjustment disorder with mixed anxiety a nd depressed mood ICD-10: F43.23 ICD-9: 309.28111/06/2017ActiveAdult BMI 50.0-59.9 kg/sq mICD-10: Z68.43 ICD-9: V85.43005/30/2018ActiveHypertensive heart disease with heart failureICD- 10: I11.0 [...] V76.207/ActiveOther mcfp (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ICD-10: Z79.899 ICD-9: V58.6907ActiveChest pain, [...] Fill Instructions atorvastatin 40 mg tablet RxNorm: 326114 1 Tablet(s) Oral every day 11/29/19 20 2020 Inactive quetiapine 100 mg tablet RxNorm: 580243 1 Tablet(s) Oral every night at bedtime 11/28/19 20 2019 Inactive sertraline 100 mg tablet RxNorm: 435509 1 Tablet(s) Oral 11/28/19 20 2019 Inactive omeprazole 20 mg capsule,delayed release RxNorm: 747481 1 Capsule(s) Oral every day 11/20/19 20 2019 Inactive amoxicillin 250 mg capsule RxNorm: 665144 1 Capsule(s) Oral three times a day 11/07/19 20 2019 Inactive multivitamin with iron-mineral tablet RxNorm: 1 Tablet(s) Oral every day 10/29/19 20 2021 Inactive cetirizine 10 mg tablet RxNorm: 7561477 1 Tablet(s) PO daily 10/20/19 20 2019 Inactive This refill negates all other refills of this medication. Please do not auto refill Singulair 10 mg tablet RxNorm: 682127 1 Tablet(s) PO daily 10/20/19 20 2019 Inactive This refill negates all other refills of this medication gabapentin 300 mg capsule RxNorm: 958783 1 Capsule(s) PO TID 10/20/19 20 2019 Inactive lisinopril 2.5 mg tablet RxNorm: 120752 1 Tablet(s) PO daily 10/20/192019 Inactive levothyroxine 50 mcg tablet RxNorm: 764348 1 Tablet(s) PO daily 10/20/192019 Inactive This refill negates all other refills of this medication hydrochlorothiazide 25 mg tablet RxNorm: 975065 1 Tablet(s) Oral every day 10/17/19 20 2019 Inactive fenugreek seed extract 500 mg capsule RxNorm: 1 Capsule(s) Oral three times a day 10/17/19 20 2021 Inactive Alcohol Prep Pads RxNorm: 199829 1 Patch TOP QAM 10/16/19 20 2020 Inactive loperamide 2 mg tablet RxNorm: 040768 1 Tablet(s) Oral as needed take one [...] 2019 Inactive hydrochlorothiazide 25 mg tablet RxNorm: 852482 1 Tablet(s) Oral every day 09/19/20 19 2019 Inactive Sudafed 12 Hour 120 mg tablet,extended release RxNorm: 4288048 1 Tablet(s) Oral every 12 hours as needed 09/11/20 19 2018 Inactive omeprazole 20 mg capsule,delayed release RxNorm: 919539 1 Capsule(s) Oral every day 09/07/20 19 2019 Inactive Sudafed 12 Hour 120 mg tablet,extended release RxNorm: 6067219 1 Tablet(s) Oral every 12 hours as needed 09/04/20 19 2018 Inactive pantoprazole 40 mg tablet,delayed release RxNorm: 847942 1 Tablet(s) Oral every day 08/24/202018 Inactive discontinue any other H2Blkr. and PPI albuterol sulfate 2.5 mg/3 mL (0.083 %) solution for nebulization RxNorm: 478649 1 Vial Inhalation every four hours as needed as needed for dyspnea 08/17/20 19 2019 Inactive 60/box. This refill negates all other refills of this medication. Please do not fill early. Please do not auto refill. Symbicort 160 mcg-4.5 mcg/actuation HFA aerosol inhaler RxNorm: 5842126 2 Puff(s) INH BID 08/17/20 19 No Stop Date Active Alcohol Prep Pads RxNorm: 223401 1 Patch TOP QAM 08/17/20 19 2019 Inactive True Metrix Glucose Test Strip RxNorm: 1 Test Strips Miscellaneous QAM 08/09/20 19 2019 Inactive 100/container Ventolin HFA 90 mcg/actuation aerosol inhaler RxNorm: 760701 2 Puff(s) INH QID 08/09/20 19 2019 Inactive Please do not fill early. Please do not auto refill. This refill negates all other refills of this medication atorvastatin 40 mg tablet RxNorm: 370871 1 Tablet(s) Oral every day 07/04/20 19 2019 Inactive levmetamfetamine 50 mg nasal inhaler RxNorm: 1 Unit(s) NASAL Q3-4H Do not use more than every 3 hours or 8 times/24hours 06/26/20 19 2021 Inactive Please do not auto refill. This refill negates all other refills of this medication diclofenac sodium 75 mg tablet,delayed release RxNorm: 444386 1 Tablet(s) PO BID 06/26/20 19 2019 Inactive This refill negates all other refills of this medication buspirone 7.5 mg tablet RxNorm: 247962 1 Tablet(s) PO BID 06/26/20 19 2020 Inactive This refill negates all other refills of this medication hydrochlorothiazide 12.5 mg tablet RxNorm: 560049 1 Tablet(s) PO QAM 06/26/20 19 2019 Inactive Ventolin HFA 90 mcg/actuation aerosol inhaler RxNorm: 669684 2 Puff(s) INH QID 06/26/20 19 2018 Inactive Please do not fill early. Please do not auto refill. This refill negates all other refills of this medication Singulair 10 mg tablet RxNorm: 667741 1 Tablet(s) PO daily 06/26/20 19 2019 Inactive This refill negates all other refills of this medication cetirizine 10 mg tablet RxNorm: 2578686 1 Tablet(s) PO daily 06/26/202019 Inactive This refill negates all other refills of this medication. Please do not auto refill levothyroxine 50 mcg tablet RxNorm: 554068 1 Tablet(s) PO daily 06/26/20 19 2019 Inactive This refill negates all other refills of this medication ranitidine 150 mg tablet RxNorm: 946202 1 Tablet(s) PO BID 06/26/20 19 2018 Inactive This refill negates all other refills of this medication Calcium 600-D3 Plus (mag-zinc) 600 mg calcium-800 unit-50 mg tablet RxNorm: 1 Tablet(s) PO daily take an additonal tablet for itching. 06/26/20 19 2018 Inactive This refill negates all other refills of this medication albuterol sulfate 2.5 mg/3 mL (0.083 %) solution for nebulization RxNorm: 417703 1 Vial INH QID 06/26/20 19 2018 Inactive 60/box. This refill negates all other refills of this medication. Please do not fill early. Please do not auto refill. lisinopril 2.5 mg tablet RxNorm: 246205 1 Tablet(s) PO daily 06/21/20 19 2019 Inactive gabapentin 300 mg capsule RxNorm: 795973 1 Capsule(s) PO TID 06/21/20 19 2019 Inactive atorvastatin 20 mg tablet RxNorm: 465278 1 Tablet(s) PO QHS 06/07/20 19 2018 Inactive This refill negates all other refills of this medication TRUEplus Lancets 30 gauge RxNorm: 1 Lancets Miscellaneous QAM 05/29/20 19 2018 Inactive 100/box gabapentin 300 mg capsule RxNorm: 169332 1 Capsule(s) PO TID 05/03/20 19 2018 Inactive Flnickolas Complete (iron) 18 mg iron chewable tablet RxNorm: 1 Tablet(s) PO daily 04/04/20 19 2021 Inactive This refill negates all other refills of this medication gabapentin 300 mg capsule RxNorm: 683174 1 Capsule(s) PO TID as needed 02/01/20 19 2018 Inactive True Metrix Glucose Test Strip RxNorm: 1 Test Strips Miscellaneous QAM 02/01/20 19 2018 Inactive 100/container Alcohol Prep Pads RxNorm: 192083 1 Patch TOP QAM 02/01/20 19 2018 Inactive TRUEplus Lancets 30 gauge RxNorm: 1 Lancets Miscellaneous QAM 02/01/20 19 2018 Inactive 100/box lisinopril 2.5 mg tablet RxNorm: 943744 1 Tablet(s) PO daily 12/28/19 19 2018 Inactive ranitidine 150 mg tablet RxNorm: 236318 1 Tablet(s) PO BID 10/21/19 19 2018 Inactive This refill negates all other refills of this medication albuterol sulfate 2.5 mg/3 mL (0.083 %) solution for nebulization RxNorm: 489543 1 Vial INH QID 10/21/19 19 2018 [...] this medication gabapentin 300 mg capsule RxNorm: 342839 1 Capsule(s) PO TID as needed 10/21/19 19 2018 Inactive atorvastatin 20 mg tablet RxNorm: 456673 1 Tablet(s) PO QHS 10/21/192018 Inactive This refill negates all other refills of this medication trazodone 50 mg tablet RxNorm: 178705 1 Tablet(s) PO QHS 10/21/192018 Inactive This refill negates all other refills of this medication Ventolin HFA 90 mcg/actuation aerosol inhaler RxNorm: 569516 2 Puff(s) INH QID 10/21/192018 Inactive Please do not fill early. Please do not auto refill. This refill negates all other refills of this medication Calcium 600-D3 Plus 600 mg calcium-800 unit-50 mg tablet RxNorm: 1 Tablet(s) PO daily take an additonal tablet for itching. 10/21/192018 Inactive This refill negates all other refills of this medication Singulair 10 mg tablet RxNorm: 951802 1 Tablet(s) PO daily 10/21/192018 Inactive This refill negates all other refills of this medication buspirone 7.5 mg tablet RxNorm: 234411 1 Tablet(s) PO BID 10/21/1921 06/23/ 2019 Inactive This refill negates all other refills of this medication diclofenac sodium 75 mg tablet,delayed release RxNorm: 174150 1 Tablet(s) PO BID 10/21/19 19 2018 Inactive This refill negates all other refills of this medication hydrochlorothiazide 12.5 mg tablet RxNorm: 418182 1 Tablet(s) PO QAM 10/21/19 19 2018 Inactive metoprolol succinate ER 50 mg tablet,extended release 24 hr RxNorm: 484881 1 Tablet(s) PO daily 10/21/19 19 2018 Inactive This refill negates all other refills of this medication levothyroxine 50 mcg tablet RxNorm: 343960 1 Tablet(s) PO daily 10/21/19 19 2018 Inactive This refill negates all other refills of this medication cetirizine 10 mg tablet RxNorm: 8530598 1 Tablet(s) PO daily 10/21/192018 Inactive This refill negates all other refills of this medication. Please do not auto refill Flintstones Complete (iron) 18 mg iron chewable tablet RxNorm: 1 Tablet(s) PO daily 10/21/192018 Inactive This refill negates all other refills of this medication buspirone 7.5 mg tablet RxNorm: 802482 1 Tablet(s) PO BID 10/12/192018 Inactive cetirizine 10 mg tablet RxNorm: 3448664 1 Tablet(s) PO daily 09/28/202018 Inactive Guaiasorb DM 10 mg-100 mg/5 mL oral liquid RxNorm: 237314 10 Milliliter(s) PO As needed every 4 hr 09/24/20 18 2018 Inactive Vicks Vaporub 4.7 %-1.2 %-2.6 % topical ointment RxNorm: 6018573 1 Application TOP TID 09/24/20 18 2018 Inactive levmetamfetamine 50 mg nasal inhaler RxNorm: 1 Unit(s) NASAL Q3-4H 09/24/20 18 2017 Inactive sertraline 50 mg tablet RxNorm: 212798 1 Tablet(s) PO daily 09/09/20 18 2018 Inactive Please note dose trazodone 50 mg tablet RxNorm: 136893 1 Tablet(s) PO QHS 09/06/20 18 2018 Inactive sertraline 50 mg tablet RxNorm: 988595 1 Tablet(s) PO daily 09/06/20 18 2017 Inactive amoxicillin 500 mg tablet RxNorm: 493859 1 Tablet(s) PO Q12H 08/31/20 18 2017 Inactive albuterol sulfate 2.5 mg/3 mL (0.083 %) solution for nebulization RxNorm: 674974 1 Vial INH QID 08/10/20 18 2018 Inactive 60/box. Please do not fill early. Please do not auto refill. Prozac 10 mg capsule RxNorm: 313232 1 Capsule(s) PO daily 08/09/20 18 2017 Inactive buspirone 7.5 mg tablet RxNorm: 737633 1 Tablet(s) PO BID 08/09/20 18 2018 Inactive gabapentin 300 mg capsule RxNorm: 085339 1 Capsule(s) PO TID as needed 08/01/20 18 2018 Inactive hydrochlorothiazide 12.5 mg tablet RxNorm: 019500 1 Tablet(s) PO QAM 08/01/20 18 2018 Inactive ranitidine 150 mg tablet RxNorm: 597352 1 Tablet(s) PO BID 08/01/20 18 2018 Inactive Macrobid 100 mg capsule RxNorm: 041396 1 Capsule(s) PO Q12H 06/21/20 18 2017 Inactive Singulair 10 mg tablet RxNorm: 388636 1 Tablet(s) PO daily 06/14/20 18 2018 Inactive Ventolin HFA 90 mcg/actuation aerosol inhaler RxNorm: 2884358 2 Puff(s) INH QID 06/14/20 18 2018 Inactive Singulair 10 mg tablet RxNorm: 064191 1 Tablet(s) PO daily 06/14/20 18 2017 Inactive buspirone 7.5 mg tablet RxNorm: 796949 1 Tablet(s) PO BID 06/14/20 18 2017 Inactive Prozac 10 mg capsule RxNorm: 762751 1 Capsule(s) PO daily 06/14/20 18 2017 Inactive Neilmed Pediatric Sinus Rinse Refill packet RxNorm: 1 Unit Dose NASAL PRN 05/31/20 18 2021 Inactive diclofenac sodium 75 mg tablet,delayed release RxNorm: 048375 1 Tablet(s) PO BID 05/31/20 18 2017 Inactive lisinopril 2.5 mg tablet RxNorm: 152723 1 Tablet(s) PO daily 05/31/20 18 2017 Inactive metoprolol succinate ER 50 mg tablet,extended release 24 hr RxNorm: 773411 1 Tablet(s) PO daily 05/31/20 18 2017 Inactive levothyroxine 50 mcg tablet RxNorm: 706058 1 Tablet(s) PO daily 05/31/20 18 2017 Inactive TRUEplus Lancets 30 gauge RxNorm: 1 Lancets Miscellaneous QAM 05/31/20 18 2017 Inactive 100/box Ventolin HFA 90 mcg/actuation aerosol inhaler RxNorm: 824851 2 Puff(s) INH QID 05/31/20 18 2017 Inactive Aleve 220 mg capsule RxNorm: 1887109 1 Capsule(s) PO BID 05/31/20 18 2018 Inactive ranitidine 150 mg tablet RxNorm: 452665 1 Tablet(s) PO BID 05/31/20 18 2017 Inactive gabapentin 300 mg capsule RxNorm: 653363 1 Capsule(s) PO TID as needed 05/31/20 18 2017 Inactive atorvastatin 20 mg tablet RxNorm: 971620 1 Tablet(s) PO QHS 05/31/20 18 2017 Inactive True Metrix Glucose Test Strip RxNorm: 1 Test Strips Miscellaneous QAM 05/31/20 18 2017 Inactive 50/container Calcium 600-D3 Plus 600 mg calcium-800 unit-50 mg tablet RxNorm: 1 Tablet(s) PO daily take an additonal tablet for itching. 05/31/20 18 2017 Inactive hydrochlorothiazide 12.5 mg tablet RxNorm: 412328 1 Tablet(s) PO QAM 05/31/20 18 2017 Inactive Flintstones Complete (iron) 18 mg iron chewable tablet RxNorm: 1 Tablet(s) PO daily 05/31/20 18 2017 Inactive d-mannose oral powder RxNorm: PO 18 2021 Inactive True Metrix Glucose Meter RxNorm: miscellaneous 08/17/202018 Inactive sertraline 50 mg tablet RxNorm: 012888 1 Tablet(s) PO daily 11/28/19 20 2019 Inactive loperamide 2 mg tablet RxNorm: 198450 oral 09/29/20 19 2018 Inactive Symbicort 160 mcg-4.5 mcg/actuation HFA aerosol inhaler RxNorm: 6511635 2 Puff(s) INH BID 08/17/202018 Inactive Medication Administered No Medication Administered data Procedures Procedure Codes Date [place] Assessment CPT-4: DSWA 11/04 Patient Health Questionnaire CPT-4: DPHQ [place] Fany Assessment CPT-4: DSWA 10/03 Hypertension CPT-4: HTN 10/17/2019 Fall Risk Assessment SNOMED CT: 18458984 4 CPT-4: DFRA09/19/2019Functional AssessmentCPT-4: DFA111/20/2018Urinalysis, dip stickCPT-4: 642888506/21/2019Tobacco Assessment/ScreeningCPT-4: TCA05/24/2019 Patient Health QuestionnaireCPT-4: DPHQ05/24/2019AHA/REBECCA Classification AssessmentCPT-4: DAHA04/25/2019Controlled Substance ReportCPT-4: CTRSU04/25/2019 Urinalysis, dip stickCPT-4: 829553003/28/2019Urinalysis, dip stickCPT-4: 48953 03/28/20190427B1D-QyzyeysvwrmswmvVQT-3: 94965XwkzigqM6V-BpikzjzrrujzfnfVBF-2: [address]: 765788116 CPT-4: B35Yihyjga Reason For Visit No Reason For Visit data Plan of Care Planned Activity Notes Codes Status Date Referral: Pending Gynecology Referral Informatio n Referral ProcessedReferral: Pending Pulmonology Referral InformationReferralProcessed Referral: Pending Psychiatry Referral InformationReferralInitiatedReferral: Pending Respiratory Services Referral InformationReferralInitiatedReferral: Pending Ophthalmology Referral InformationReferralInitiatedReferral: [facility] WPtel: [address] [place] [address] USWriter placed a call out to the patient to notify her that it has been recommended that she be seenby 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 Patient agreed to be seen, does not have a provider of choice and no transportationissues. [employer] Shop Aide faxed referral and clinical notes to [facility] in [place], [place] near the patient's home. Patient to [...] seen and prefers a provider in the [place] or [facility]. [employer] Aide placed a call out to everyone listed in the area and the only location that was able to accept the patient's insurance was [address] [address] and spoke with Maylin. Maylin asked that the patient's referral, face sheet and visit notes be faxed to . [employer] faxed over requested documents. Patient appointment confirmation letter generated and mailed to her home address. Patient to call to schedule an appointment.ProcessedReferral: [facility] WPtel: [address] [place] [address] [address] [id number] USPatient notified that it has been advised that she be seen by Neurology. Patient agreed to be seen and prefers to be seen by a provider in the [place], [place] area. Patient denies any concerns with transportation, and prefers to schedule her own appointment. [employer] placed a call out to [facility] and spoke with Neeraj P: who confirmed that their office is able to acceptnew patients and the patient's insurance. After confirming the providers fax number, ad copy writer faxed over the patient's referral, and [...]
--- OUTSIDE RECORDS SUMMARY | 2023-12-07 02:09 | XMS_ITS | CCD ---
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 Customer Accounts Advisor Name Role Phone Palomo KING, Anna Primary Care Provider Unav ailable Unavailable Chronic Care Management Unavaila ble Summary Purpose DataExchange Insurance Providers Payer name Policy type / Coverage type Covered republican ID Effective Begin Date Effective End Date [facility] [id number] Unknown Unknown Family history Mother Diagnosis Age [...] 05/31/2018 Education level Unknown Some High School 10th05/31/20185230NisftogplnYblbwuuTzjjlxapnm99/29/2018Tobacco historySNOMED CT: 872059788Uai never smoked or chewed ovotxvi8405/31/2018Alcohol historySNOMED CT: 517008498Peupm drinks sjpjtuf6505/31/2018Has the patient ever used illegal drugs? UnknownHas never used illegal drugs05/31/2018DNR Order/ Advanced Directive UnknownFull Code05/31/2018 Allergies, Adverse Reactions, Alerts Substance Reaction Codes Entered Date Inactivated Date Status *No known food allergies Boprgfc4009/06/2018No Inactive DateActiveMethylprednisolonehivesRxNorm: 6902 09/06/2018No Inactive DateActive Problems [...] malignant neoplasm of cervixICD-10: Z12.4 ICD-9: V76.207/ActiveOther director long term care (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ICD-10: Z79.899 ICD-9: V58.6907/ActiveChest pain, [...] Fill Instructions hydrochlorothiazide 25 mg tablet RxNorm: 424723 1 Tablet(s) Oral every day 12/21/19 20 2019 Inactive Sudafed 12 Hour 120 mg tablet,extended release RxNorm: 7385543 TAKE (1) TABLET BY MOUTH EVERY 12 HOURS NEEDED 12/21/19 20 2019 Inactive loperamide 2 mg tablet RxNorm: 186434 1 Tablet(s) Oral as needed take one tablet after each loose stool, maximum of 8 tablets in 24 hours 12/11/19 20 2019 Inactive loperamide 2 mg tablet RxNorm: 174476 1 Tablet(s) Oral as needed take one tablet after each loose stool, maximum of 8 tablets in 24 hours 12/11/19 20 2019 Inactive atorvastatin 40 mg tablet RxNorm: 846807 1 Tablet(s) Oral every day 11/29/19 20 2020 Inactive quetiapine 100 mg tablet RxNorm: 683988 1 Tablet(s) Oral every night at bedtime 11/28/19 20 2019 Inactive sertraline 100 mg tablet RxNorm: 816197 1 Tablet(s) Oral 11/28/19 20 2019 Inactive omeprazole 20 mg capsule,delayed release RxNorm: 540357 1 Capsule(s) Oral every day 11/20/19 20 2019 Inactive amoxicillin 250 mg capsule RxNorm: 309855 1 Capsule(s) Oral three times a day 11/07/19 20 2019 Inactive multivitamin with iron-mineral tablet RxNorm: 1 Tablet(s) Oral every day 10/29/19 20 2021 Inactive cetirizine 10 mg tablet RxNorm: 3217075 1 Tablet(s) PO daily 10/20/19 20 2019 Inactive This refill negates all other refills of this medication. Please do not auto refill Singulair 10 mg tablet RxNorm: 433899 1 Tablet(s) PO daily 10/20/19 20 2019 Inactive This refill negates all other refills of this medication gabapentin 300 mg capsule RxNorm: 311180 1 Capsule(s) PO TID 10/20/19 20 2019 Inactive lisinopril 2.5 mg tablet RxNorm: 625946 1 Tablet(s) PO daily 10/20/19 20 2019 Inactive levothyroxine 50 mcg tablet RxNorm: 654118 1 Tablet(s) PO daily 10/20/19 20 2019 Inactive This refill negates all other refills of this medication fenugreek seed extract 500 mg capsule RxNorm: 1 Capsule(s) Oral three times a day 10/17/19 2021 Inactive hydrochlorothiazide 25 mg tablet RxNorm: 938119 1 Tablet(s) Oral every day 10/17/19 20 2019 Inactive Alcohol Prep Pads RxNorm: 460053 1 Patch TOP QAM 10/16/19 20 2020 Inactive loperamide 2 mg tablet RxNorm: 366583 1 Tablet(s) Oral as needed take one [...] 09/19/202019 Inactive hydrochlorothiazide 25 mg tablet RxNorm: 895978 1 Tablet(s) Oral every day 09/19/202019 Inactive Sudafed 12 Hour 120 mg tablet,extended release RxNorm: 7887827 1 Tablet(s) Oral every 12 hours as needed 09/11/20 19 2018 Inactive omeprazole 20 mg capsule,delayed release RxNorm: 630948 1 Capsule(s) Oral every day 09/07/20 19 2019 Inactive Sudafed 12 Hour 120 mg tablet,extended release RxNorm: 2037674 1 Tablet(s) Oral every 12 hours as needed 09/04/20 19 2018 Inactive pantoprazole 40 mg tablet,delayed release RxNorm: 841357 1 Tablet(s) Oral every day 08/24/202018 Inactive discontinue any other H2Blkr. and PPI albuterol sulfate 2.5 mg/3 mL (0.083 %) solution for nebulization RxNorm: 805198 1 Vial Inhalation every four hours as needed as needed for dyspnea 08/17/20 19 2019 Inactive 60/box. This refill negates all other refills of this medication. Please do not fill early. Please do not auto refill. Symbicort 160 mcg-4.5 mcg/actuation HFA aerosol inhaler RxNorm: 0714291 2 Puff(s) INH BID 08/17/20 19 No Stop Date Active Alcohol Prep Pads RxNorm: 939020 1 Patch TOP QAM 08/17/20 19 2019 Inactive True Metrix Glucose Test Strip RxNorm: 1 Test Strips Miscellaneous QAM 08/09/20 19 2019 Inactive 100/container Ventolin HFA 90 mcg/actuation aerosol inhaler RxNorm: 122787 2 Puff(s) INH QID 08/09/20 19 2019 Inactive Please do not fill early. Please do not auto refill. This refill negates all other refills of this medication atorvastatin 40 mg tablet RxNorm: 270600 1 Tablet(s) Oral every day 07/04/20 19 2019 Inactive levmetamfetamine 50 mg nasal inhaler RxNorm: 1 Unit(s) NASAL Q3-4H Do not use more than every 3 hours or 8 times/24hours 06/26/20 19 2021 Inactive Please do not auto refill. This refill negates all other refills of this medication diclofenac sodium 75 mg tablet,delayed release RxNorm: 406161 1 Tablet(s) PO BID 06/26/20 19 2019 Inactive This refill negates all other refills of this medication buspirone 7.5 mg tablet RxNorm: 026356 1 Tablet(s) PO BID 06/26/20 19 2020 Inactive This refill negates all other refills of this medication hydrochlorothiazide 12.5 mg tablet RxNorm: 192318 1 Tablet(s) PO QAM 06/26/20 19 2019 Inactive Ventolin HFA 90 mcg/actuation aerosol inhaler RxNorm: 018985 2 Puff(s) INH QID 06/26/20 19 2018 Inactive Please do not fill early. Please do not auto refill. This refill negates all other refills of this medication Singulair 10 mg tablet RxNorm: 780232 1 Tablet(s) PO daily 06/26/20 19 2019 Inactive This refill negates all other refills of this medication cetirizine 10 mg tablet RxNorm: 5025504 1 Tablet(s) PO daily 06/26/20 19 2019 Inactive This refill negates all other refills of this medication. Please do not auto refill levothyroxine 50 mcg tablet RxNorm: 055385 1 Tablet(s) PO daily 06/26/20 19 2019 Inactive This refill negates all other refills of this medication ranitidine 150 mg tablet RxNorm: 548226 1 Tablet(s) PO BID 06/26/20 19 2018 Inactive This refill negates all other refills of this medication Calcium 600-D3 Plus (mag-zinc) 600 mg calcium-800 unit-50 mg tablet RxNorm: 1 Tablet(s) PO daily take an additonal tablet for itching. 06/26/20 19 2018 Inactive This refill negates all other refills of this medication albuterol sulfate 2.5 mg/3 mL (0.083 %) solution for nebulization RxNorm: 793873 1 Vial INH QID 06/26/20 19 2018 Inactive 60/box. This refill negates all other refills of this medication. Please do not fill early. Please do not auto refill. lisinopril 2.5 mg tablet RxNorm: 960168 1 Tablet(s) PO daily 06/21/20 19 2019 Inactive gabapentin 300 mg capsule RxNorm: 133988 1 Capsule(s) PO TID 06/21/20 19 2019 Inactive atorvastatin 20 mg tablet RxNorm: 118328 1 Tablet(s) PO QHS 06/07/20 19 2018 Inactive This refill negates all other refills of this medication TRUEplus Lancets 30 gauge RxNorm: 1 Lancets Miscellaneous QAM 05/29/20 19 2018 Inactive 100/box gabapentin 300 mg capsule RxNorm: 163051 1 Capsule(s) PO TID 05/03/20 19 2018 Inactive Flintstones Complete (iron) 18 mg iron chewable tablet RxNorm: 1 Tablet(s) PO daily 04/04/20 19 2021 Inactive This refill negates all other refills of this medication gabapentin 300 mg capsule RxNorm: 220747 1 Capsule(s) PO TID as needed 02/01/20 19 2018 Inactive True Metrix Glucose Test Strip RxNorm: 1 Test Strips Miscellaneous QAM 02/01/20 19 2018 Inactive 100/container Alcohol Prep Pads RxNorm: 917912 1 Patch TOP QAM 02/01/20 19 2018 Inactive TRUEplus Lancets 30 gauge RxNorm: 1 Lancets Miscellaneous QAM 02/01/20 19 2018 Inactive 100/box lisinopril 2.5 mg tablet RxNorm: 682559 1 Tablet(s) PO daily 12/28/19 19 2018 Inactive ranitidine 150 mg tablet RxNorm: 843132 1 Tablet(s) PO BID 10/21/192018 Inactive This refill negates all other refills of this medication albuterol sulfate 2.5 mg/3 mL (0.083 %) solution for nebulization RxNorm: 207671 1 Vial INH QID 10/21/192018 Inactive 60/box. [...] this medication gabapentin 300 mg capsule RxNorm: 372619 1 Capsule(s) PO TID as needed 10/21/192018 Inactive atorvastatin 20 mg tablet RxNorm: 304480 1 Tablet(s) PO QHS 10/21/19 19 2018 Inactive This refill negates all other refills of this medication trazodone 50 mg tablet RxNorm: 458346 1 Tablet(s) PO QHS 10/21/192018 Inactive This refill negates all other refills of this medication Ventolin HFA 90 mcg/actuation aerosol inhaler RxNorm: 689882 2 Puff(s) INH QID 10/21/192018 Inactive Please do not fill early. Please do not auto refill. This refill negates all other refills of this medication Calcium 600-D3 Plus 600 mg calcium-800 unit-50 mg tablet RxNorm: 1 Tablet(s) PO daily take an additonal tablet for itching. 10/21/192018 Inactive This refill negates all other refills of this medication Singulair 10 mg tablet RxNorm: 440685 1 Tablet(s) PO daily 10/21/192018 Inactive This refill negates all other refills of this medication buspirone 7.5 mg tablet RxNorm: 745542 1 Tablet(s) PO BID 10/21/192018 Inactive This refill negates all other refills of this medication diclofenac sodium 75 mg tablet,delayed release RxNorm: 869432 1 Tablet(s) PO BID 10/21/192018 Inactive This refill negates all other refills of this medication hydrochlorothiazide 12.5 mg tablet RxNorm: 283264 1 Tablet(s) PO QAM 10/21/192018 Inactive metoprolol succinate ER 50 mg tablet,extended release 24 hr RxNorm: 454592 1 Tablet(s) PO daily 10/21/192018 Inactive This refill negates all other refills of this medication levothyroxine 50 mcg tablet RxNorm: 052349 1 Tablet(s) PO daily 10/21/192018 Inactive This refill negates all other refills of this medication cetirizine 10 mg tablet RxNorm: 9607545 1 Tablet(s) PO daily 10/21/192018 Inactive This refill negates all other refills of this medication. Please do not auto refill Flintstones Complete (iron) 18 mg iron chewable tablet RxNorm: 1 Tablet(s) PO daily 10/21/192018 Inactive This refill negates all other refills of this medication buspirone 7.5 mg tablet RxNorm: 976623 1 Tablet(s) PO BID 10/12/19 19 2018 Inactive cetirizine 10 mg tablet RxNorm: 6416998 1 Tablet(s) PO daily 09/28/20 18 2018 Inactive Guaiasorb DM 10 mg-100 mg/5 mL oral liquid RxNorm: 940037 10 Milliliter(s) PO As needed every 4 hr 09/24/20 18 2018 Inactive Vicks Vaporub 4.7 %-1.2 %-2.6 % topical ointment RxNorm: 8300625 1 Application TOP TID 09/24/20 18 2018 Inactive levmetamfetamine 50 mg nasal inhaler RxNorm: 1 Unit(s) NASAL Q3-4H 09/24/20 18 2017 Inactive sertraline 50 mg tablet RxNorm: 302511 1 Tablet(s) PO daily 09/09/20 18 2018 Inactive Please note dose trazodone 50 mg tablet RxNorm: 456214 1 Tablet(s) PO QHS 09/06/20 18 2018 Inactive sertraline 50 mg tablet RxNorm: 139971 1 Tablet(s) PO daily 09/06/20 18 2017 Inactive amoxicillin 500 mg tablet RxNorm: 768769 1 Tablet(s) PO Q12H 08/31/20 18 2017 Inactive albuterol sulfate 2.5 mg/3 mL (0.083 %) solution for nebulization RxNorm: 245878 1 Vial INH QID 08/10/20 18 2018 Inactive 60/box. Please do not fill early. Please do not auto refill. Prozac 10 mg capsule RxNorm: 662501 1 Capsule(s) PO daily 08/09/20 18 2017 Inactive buspirone 7.5 mg tablet RxNorm: 246644 1 Tablet(s) PO BID 08/09/20 18 2018 Inactive gabapentin 300 mg capsule RxNorm: 420342 1 Capsule(s) PO TID as needed 08/01/20 18 2018 Inactive hydrochlorothiazide 12.5 mg tablet RxNorm: 267527 1 Tablet(s) PO QAM 08/01/20 18 2018 Inactive ranitidine 150 mg tablet RxNorm: 533427 1 Tablet(s) PO BID 08/01/20 18 2018 Inactive Macrobid 100 mg capsule RxNorm: 190069 1 Capsule(s) PO Q12H 06/21/20 18 2017 Inactive Singulair 10 mg tablet RxNorm: 300941 1 Tablet(s) PO daily 06/14/20 18 2018 Inactive Ventolin HFA 90 mcg/actuation aerosol inhaler RxNorm: 3262447 2 Puff(s) INH QID 06/14/20 18 2018 Inactive Singulair 10 mg tablet RxNorm: 977756 1 Tablet(s) PO daily 06/14/20 18 2017 Inactive buspirone 7.5 mg tablet RxNorm: 145407 1 Tablet(s) PO BID 06/14/20 18 2017 Inactive Prozac 10 mg capsule RxNorm: 601831 1 Capsule(s) PO daily 06/14/20 18 2017 Inactive Neilmed Pediatric Sinus Rinse Refill packet RxNorm: 1 Unit Dose NASAL PRN 05/31/20 18 2021 Inactive diclofenac sodium 75 mg tablet,delayed release RxNorm: 723489 1 Tablet(s) PO BID 05/31/20 18 2017 Inactive lisinopril 2.5 mg tablet RxNorm: 126750 1 Tablet(s) PO daily 05/31/20 18 2017 Inactive metoprolol succinate ER 50 mg tablet,extended release 24 hr RxNorm: 317476 1 Tablet(s) PO daily 05/31/20 18 2017 Inactive levothyroxine 50 mcg tablet RxNorm: 765343 1 Tablet(s) PO daily 05/31/20 18 2017 Inactive TRUEplus Lancets 30 gauge RxNorm: 1 Lancets Miscellaneous QAM 05/31/20 18 2017 Inactive 100/box Ventolin HFA 90 mcg/actuation aerosol inhaler RxNorm: 676378 2 Puff(s) INH QID 05/31/20 18 2017 Inactive Aleve 220 mg capsule RxNorm: 9012097 1 Capsule(s) PO BID 05/31/20 18 2018 Inactive ranitidine 150 mg tablet RxNorm: 840094 1 Tablet(s) PO BID 05/31/20 18 2017 Inactive gabapentin 300 mg capsule RxNorm: 258287 1 Capsule(s) PO TID as needed 05/31/20 18 2017 Inactive atorvastatin 20 mg tablet RxNorm: 219653 1 Tablet(s) PO QHS 05/31/20 18 2017 Inactive True Metrix Glucose Test Strip RxNorm: 1 Test Strips Miscellaneous QAM 05/31/20 18 2017 Inactive 50/container Calcium 600-D3 Plus 600 mg calcium-800 unit-50 mg tablet RxNorm: 1 Tablet(s) PO daily take an additonal tablet for itching. 05/31/20 18 2017 Inactive hydrochlorothiazide 12.5 mg tablet RxNorm: 825621 1 Tablet(s) PO QAM 05/31/20 18 2017 Inactive Flintstones Complete (iron) 18 mg iron chewable tablet RxNorm: 1 Tablet(s) PO daily 05/31/20 18 2017 Inactive d-mannose oral powder RxNorm: PO 18 2021 Inactive True Metrix Glucose Meter RxNorm: miscellaneous 08/17/20 19 2018 Inactive sertraline 50 mg tablet RxNorm: 276191 1 Tablet(s) PO daily 11/28/19 20 2019 Inactive loperamide 2 mg tablet RxNorm: 350212 oral 09/29/20 19 2018 Inactive Symbicort 160 mcg-4.5 mcg/actuation HFA aerosol inhaler RxNorm: 2594896 2 Puff(s) INH BID 08/17/20 19 2018 Inactive Medication Administered No Medication Administered data Procedures Procedure Codes Date [place] Assessment CPT-4: DSWA 11/04 Patient Health Questionnaire CPT-4: DPHQ [place] Fany Assessment CPT-4: DSWA 10/03 Hypertension CPT-4: HTN 10/17/2019 Fall Risk Assessment SNOMED CT: 11234933 4 CPT-4: DFRA09/19/2019Functional AssessmentCPT-4: DFA111/20/2018Urinalysis, dip stickCPT-4: 4469382Tobacco Assessment/ScreeningCPT-4: TCA05/24/2019 Patient Health QuestionnaireCPT-4: DPHQ05/24/2019AHA/REBECCA Classification AssessmentCPT-4: DAHA04/25/2019Controlled Substance ReportCPT-4: CTRSU04/25/2019 Urinalysis, dip stickCPT-4: 5103326Urinalysis, dip stickCPT-4: 40578 03/28/20194855P1X-OuchgdrmdiumuqfMUS-3: 89352ZuufzviW5W-YvkdwtbwsfheqsyAKH-7: [address]: 375565163 CPT-4: [id number] Reason For Visit No Reason For Visit data Plan of Care Planned Activity Notes Codes Status Date Referral: Pending Gynecology Referral Informatio n Referral ProcessedReferral: Pending Pulmonology Referral InformationReferralProcessed Referral: Pending Psychiatry Referral InformationReferralInitiatedReferral: Pending Respiratory Services Referral InformationReferralInitiatedReferral: Pending Ophthalmology Referral InformationReferralInitiatedReferral: [facility] WPtel: [address] [place] [address] [id number] USWriter placed a call out to the patient to notify her that it has been recommended that she be seenby 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 Patient agreed to be seen, does not have a provider of choice and no transportationissues. [employer]airer faxed referral and clinical notes to [facility] in [place], [place] near the patient's home. Patient to [...] seen and prefers a provider in the [place] or [place] area. Pattern Changer [employer]airer placed a call out to everyone listed in the area and the only location that was able to accept the patient's insurance was [facility] [address] [place] [address] and spoke with Maylin. Maylin asked that the patient's referral, face sheet and visit notes be faxed to . [employer]r faxed over requested documents. Patient appointment confirmation letter generated and mailed to her home address. Patient to call to schedule an appointment.ProcessedReferral: [facility] WPtel: [address] [place], [place] [id number] USPatient notified that it has been advised that she be seen by Neurology. Patient agreed to be seen and prefers to be seen by a provider in the [place], [place] area. Patient denies any concerns with transportation, and prefers to schedule her own appointment. [employer] Changer [employer] Repairer placed a call out to [facility] and spoke with Neeraj [...]
--- OUTSIDE RECORDS SUMMARY | 2023-12-07 02:09 | XMS_ITS | CCD ---
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 Parcel Wrapper Name Role Phone Palomo KING, Anna Primary Care Provider Unav ailable Unavailable Chronic Care Management Unavaila ble Summary Purpose DataExchange Insurance Providers Payer name Policy type / Coverage type Covered republican ID Effective Begin Date Effective End Date [employer] [facility] [id number] Unknown Unknown Family history Mother Diagnosis Age [...] 05/31/2018 Education level Unknown Some High School 10th05/31/20183099PtnqeobymxUosfyevXzkmpimdre41/29/2018Tobacco historySNOMED CT: 340386514Ivj never smoked or chewed luamzab5605/31/2018Alcohol historySNOMED CT: 304246037Vieop drinks hyzaiwd2305/31/2018Has the patient ever used illegal drugs? UnknownHas never used illegal drugs05/31/2018DNR Order/ Advanced Directive UnknownFull Code05/31/2018 Allergies, Adverse Reactions, Alerts Substance Reaction Codes Entered Date Inactivated Date Status *No known food allergies Vwytpgj7709/06/2018No Inactive DateActiveMethylprednisolonehivesRxNorm: 6902 09/06/2018No Inactive DateActive Problems Condition Codes Effective Dates Condition St atus Sinusitis ICD-10: J32.9 ICD-9: 473.902ActiveHypertensive heart disease with heart failureICD-10: I11.0 ICD-9: 402.9107/ActiveType 2 diabetes mellitus without complicationsICD- 10: E11.9 ICD-9: 250.0001ActiveAdjustment disorder with mixed anxiety and depressed moodICD-10: F43.23 ICD-9: 309.2812/01/2018ActiveAsthmaICD-10: J45.909 ICD-9: 493.9011ActiveEssential (primary) hypertensionICD-10: I10 ICD-9: [...] malignant neoplasm of cervixICD-10: Z12.4 ICD-9: V76.207ActiveOther group home (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ICD-10: Z79.899 ICD-9: V58.6907/ActiveBody mass index (BMI) 50-59.9 , adultICD-10: Z68.43 ICD-9: V85.4308/ActiveChest pain, unspecifiedICD-10: R07.9 ICD-9: 786.5002ActiveEncounter for preprocedural cardiovascular examinationICD-10: Z01.810 ICD-9: V72.8106/ActiveDyspnea, unspecifiedICD-10: R06.00 ICD-9: 786.0905ActivePost-traumatic stress disorder, unspecifiedICD-10: F43.10 ICD-9: 309.8112ActiveWheezingICD-10: R06.2 ICD-9: 786.0711ActiveAbnormal electrocardiogram [ECG] [EKG]ICD-10: R94.31 ICD-9: 794.31005/30/2018ActiveEdema, unspecifiedICD-10: R60.9 ICD-9: 782.310/06/2018ActiveHeadacheICD-10: R51 ICD-9: 784.001ActiveLong term (current) use of non-steroidal anti- inflammatories (NSAID)ICD-10: Z79.1 ICD-9: V58.6409Active Medications Medication Codes Instructions Start Date Stop Date Status Fill Instructions omeprazole 20 mg capsule,delayed release RxNorm: 135846 1 Capsule(s) Oral every day 11/20/19 20 2019 Inactive amoxicillin 250 mg capsule RxNorm: 177002 1 Capsule(s) Oral three times a day 11/07/19 20 2019 Inactive multivitamin with iron-mineral tablet RxNorm: 1 Tablet(s) Oral every day 10/29/19 20 2021 Inactive cetirizine 10 mg tablet RxNorm: 1237206 1 Tablet(s) PO daily 10/20/19 20 2019 Inactive This refill negates all other refills of this medication. Please do not auto refill Singulair 10 mg tablet RxNorm: 751239 1 Tablet(s) PO daily 10/20/19 20 2019 Inactive This refill negates all other refills of this medication gabapentin 300 mg capsule RxNorm: 405301 1 Capsule(s) PO TID 10/20/19 20 2019 Inactive lisinopril 2.5 mg tablet RxNorm: 967035 1 Tablet(s) PO daily 10/20/19 20 2019 Inactive levothyroxine 50 mcg tablet RxNorm: 809111 1 Tablet(s) PO daily 10/20/19 20 2019 Inactive This refill negates all other refills of this medication hydrochlorothiazide 25 mg tablet RxNorm: 019558 1 Tablet(s) Oral every day 10/17/19 20 2019 Inactive fenugreek seed extract 500 mg capsule RxNorm: 1 Capsule(s) Oral three times a day 10/17/192021 Inactive Alcohol Prep Pads RxNorm: 427525 1 Patch TOP QAM 10/16/19 20 2020 Inactive loperamide 2 mg tablet RxNorm: 483537 1 Tablet(s) Oral as needed take one [...] 2019 Inactive hydrochlorothiazide 25 mg tablet RxNorm: 379811 1 Tablet(s) Oral every day 09/19/20 19 2019 Inactive Sudafed 12 Hour 120 mg tablet,extended release RxNorm: 8176897 1 Tablet(s) Oral every 12 hours as needed 09/11/20 19 2018 Inactive omeprazole 20 mg capsule,delayed release RxNorm: 809790 1 Capsule(s) Oral every day 09/07/20 19 2019 Inactive Sudafed 12 Hour 120 mg tablet,extended release RxNorm: 4778450 1 Tablet(s) Oral every 12 hours as needed 09/04/20 19 2018 Inactive pantoprazole 40 mg tablet,delayed release RxNorm: 914368 1 Tablet(s) Oral every day 08/24/20 19 2018 Inactive discontinue any other H2Blkr. and PPI albuterol sulfate 2.5 mg/3 mL (0.083 %) solution for nebulization RxNorm: 395386 1 Vial Inhalation every four hours as needed as needed for dyspnea 08/17/20 19 2019 Inactive 60/box. This refill negates all other refills of this medication. Please do not fill early. Please do not auto refill. Symbicort 160 mcg-4.5 mcg/actuation HFA aerosol inhaler RxNorm: 8028464 2 Puff(s) INH BID 08/17/20 19 No Stop Date Active Alcohol Prep Pads RxNorm: 468857 1 Patch TOP QAM 08/17/20 19 2019 Inactive True Metrix Glucose Test Strip RxNorm: 1 Test Strips Miscellaneous QAM 08/09/20 19 2019 Inactive 100/container Ventolin HFA 90 mcg/actuation aerosol inhaler RxNorm: 590883 2 Puff(s) INH QID 08/09/20 19 2019 Inactive Please do not fill early. Please do not auto refill. This refill negates all other refills of this medication atorvastatin 40 mg tablet RxNorm: 182464 1 Tablet(s) Oral every day 07/04/20 19 2019 Inactive levmetamfetamine 50 mg nasal inhaler RxNorm: 1 Unit(s) NASAL Q3-4H Do not use more than every 3 hours or 8 times/24hours 06/26/20 19 2021 Inactive Please do not auto refill. This refill negates all other refills of this medication diclofenac sodium 75 mg tablet,delayed release RxNorm: 441942 1 Tablet(s) PO BID 06/26/20 2019 Inactive This refill negates all other refills of this medication buspirone 7.5 mg tablet RxNorm: 360254 1 Tablet(s) PO BID 06/26/20 19 2020 Inactive This refill negates all other refills of this medication hydrochlorothiazide 12.5 mg tablet RxNorm: 952029 1 Tablet(s) PO QAM 06/26/20 19 2019 Inactive Ventolin HFA 90 mcg/actuation aerosol inhaler RxNorm: 203174 2 Puff(s) INH QID 06/26/20 19 2018 Inactive Please do not fill early. Please do not auto refill. This refill negates all other refills of this medication Singulair 10 mg tablet RxNorm: 814277 1 Tablet(s) PO daily 06/26/20 19 2019 Inactive This refill negates all other refills of this medication cetirizine 10 mg tablet RxNorm: 8344512 1 Tablet(s) PO daily 06/26/20 19 2019 Inactive This refill negates all other refills of this medication. Please do not auto refill levothyroxine 50 mcg tablet RxNorm: 222797 1 Tablet(s) PO daily 06/26/20 19 2019 Inactive This refill negates all other refills of this medication ranitidine 150 mg tablet RxNorm: 793480 1 Tablet(s) PO BID 06/26/20 19 2018 Inactive This refill negates all other refills of this medication Calcium 600-D3 Plus (mag-zinc) 600 mg calcium-800 unit-50 mg tablet RxNorm: 1 Tablet(s) PO daily take an additonal tablet for itching. 06/26/20 19 2018 Inactive This refill negates all other refills of this medication albuterol sulfate 2.5 mg/3 mL (0.083 %) solution for nebulization RxNorm: 708510 1 Vial INH QID 06/26/20 19 2018 Inactive 60/box. This refill negates all other refills of this medication. Please do not fill early. Please do not auto refill. lisinopril 2.5 mg tablet RxNorm: 059668 1 Tablet(s) PO daily 06/21/20 19 2019 Inactive gabapentin 300 mg capsule RxNorm: 462589 1 Capsule(s) PO TID 06/21/20 19 2019 Inactive atorvastatin 20 mg tablet RxNorm: 958974 1 Tablet(s) PO QHS 06/07/20 19 2018 Inactive This refill negates all other refills of this medication TRUEplus Lancets 30 gauge RxNorm: 1 Lancets Miscellaneous QAM 05/29/20 19 2018 Inactive 100/box gabapentin 300 mg capsule RxNorm: 373114 1 Capsule(s) PO TID 05/03/20 19 2018 Inactive Flintstones Complete (iron) 18 mg iron chewable tablet RxNorm: 1 Tablet(s) PO daily 04/04/20 19 2021 Inactive This refill negates all other refills of this medication gabapentin 300 mg capsule RxNorm: 826961 1 Capsule(s) PO TID as needed 02/01/20 19 2018 Inactive True Metrix Glucose Test Strip RxNorm: 1 Test Strips Miscellaneous QAM 02/01/20 19 2018 Inactive 100/container Alcohol Prep Pads RxNorm: 547968 1 Patch TOP QAM 02/01/20 19 2018 Inactive TRUEplus Lancets 30 gauge RxNorm: 1 Lancets Miscellaneous QAM 02/01/20 19 2018 Inactive 100/box lisinopril 2.5 mg tablet RxNorm: 572541 1 Tablet(s) PO daily 12/28/19 19 2018 Inactive ranitidine 150 mg tablet RxNorm: 420897 1 Tablet(s) PO BID 10/21/19 19 2018 Inactive This refill negates all other refills of this medication albuterol sulfate 2.5 mg/3 mL (0.083 %) solution for nebulization RxNorm: 277972 1 Vial INH QID 10/21/19 19 2018 [...] this medication gabapentin 300 mg capsule RxNorm: 043947 1 Capsule(s) PO TID as needed 10/21/19 19 2018 Inactive atorvastatin 20 mg tablet RxNorm: 311357 1 Tablet(s) PO QHS 10/21/192018 Inactive This refill negates all other refills of this medication trazodone 50 mg tablet RxNorm: 498493 1 Tablet(s) PO QHS 10/21/192018 Inactive This refill negates all other refills of this medication Ventolin HFA 90 mcg/actuation aerosol inhaler RxNorm: 308081 2 Puff(s) INH QID 10/21/192018 Inactive Please do not fill early. Please do not auto refill. This refill negates all other refills of this medication Calcium 600-D3 Plus 600 mg calcium-800 unit-50 mg tablet RxNorm: 1 Tablet(s) PO daily take an additonal tablet for itching. 10/21/192018 Inactive This refill negates all other refills of this medication Singulair 10 mg tablet RxNorm: 906964 1 Tablet(s) PO daily 10/21/192018 Inactive This refill negates all other refills of this medication buspirone 7.5 mg tablet RxNorm: 727210 1 Tablet(s) PO BID 10/21/192018 Inactive This refill negates all other refills of this medication diclofenac sodium 75 mg tablet,delayed release RxNorm: 017103 1 Tablet(s) PO BID 10/21/192018 Inactive This refill negates all other refills of this medication hydrochlorothiazide 12.5 mg tablet RxNorm: 253171 1 Tablet(s) PO QAM 10/21/19 19 2018 Inactive metoprolol succinate ER 50 mg tablet,extended release 24 hr RxNorm: 713711 1 Tablet(s) PO daily 10/21/19 19 2018 Inactive This refill negates all other refills of this medication levothyroxine 50 mcg tablet RxNorm: 461184 1 Tablet(s) PO daily 10/21/19 19 2018 Inactive This refill negates all other refills of this medication cetirizine 10 mg tablet RxNorm: 3749254 1 Tablet(s) PO daily 10/21/19 19 2018 Inactive This refill negates all other refills of this medication. Please do not auto refill Flintstones Complete (iron) 18 mg iron chewable tablet RxNorm: 1 Tablet(s) PO daily 10/21/19 19 2018 Inactive This refill negates all other refills of this medication buspirone 7.5 mg tablet RxNorm: 423945 1 Tablet(s) PO BID 10/12/19 19 2018 Inactive cetirizine 10 mg tablet RxNorm: 6238621 1 Tablet(s) PO daily 09/28/20 18 2018 Inactive Guaiasorb DM 10 mg-100 mg/5 mL oral liquid RxNorm: 873680 10 Milliliter(s) PO As needed every 4 hr 09/24/20 18 2018 Inactive Vicks Vaporub 4.7 %-1.2 %-2.6 % topical ointment RxNorm: 0313446 1 Application TOP TID 09/24/20 18 2018 Inactive levmetamfetamine 50 mg nasal inhaler RxNorm: 1 Unit(s) NASAL Q3-4H 09/24/20 18 2017 Inactive sertraline 50 mg tablet RxNorm: 074761 1 Tablet(s) PO daily 09/09/20 18 2018 Inactive Please note dose trazodone 50 mg tablet RxNorm: 124897 1 Tablet(s) PO QHS 09/06/20 18 2018 Inactive sertraline 50 mg tablet RxNorm: 048158 1 Tablet(s) PO daily 09/06/20 18 2017 Inactive amoxicillin 500 mg tablet RxNorm: 146418 1 Tablet(s) PO Q12H 08/31/20 18 2017 Inactive albuterol sulfate 2.5 mg/3 mL (0.083 %) solution for nebulization RxNorm: 953019 1 Vial INH QID 08/10/20 18 2018 Inactive 60/box. Please do not fill early. Please do not auto refill. Prozac 10 mg capsule RxNorm: 501277 1 Capsule(s) PO daily 08/09/20 18 2017 Inactive buspirone 7.5 mg tablet RxNorm: 000562 1 Tablet(s) PO BID 08/09/20 18 2018 Inactive gabapentin 300 mg capsule RxNorm: 416055 1 Capsule(s) PO TID as needed 08/01/20 18 2018 Inactive hydrochlorothiazide 12.5 mg tablet RxNorm: 673971 1 Tablet(s) PO QAM 08/01/20 18 2018 Inactive ranitidine 150 mg tablet RxNorm: 881855 1 Tablet(s) PO BID 08/01/20 18 2018 Inactive Macrobid 100 mg capsule RxNorm: 319031 1 Capsule(s) PO Q12H 06/21/20 18 2017 Inactive Singulair 10 mg tablet RxNorm: 968647 1 Tablet(s) PO daily 06/14/20 18 2018 Inactive Ventolin HFA 90 mcg/actuation aerosol inhaler RxNorm: 7339238 2 Puff(s) INH QID 06/14/20 18 2018 Inactive Singulair 10 mg tablet RxNorm: 008827 1 Tablet(s) PO daily 06/14/20 18 2017 Inactive buspirone 7.5 mg tablet RxNorm: 552350 1 Tablet(s) PO BID 06/14/20 18 2017 Inactive Prozac 10 mg capsule RxNorm: 303220 1 Capsule(s) PO daily 06/14/20 18 2017 Inactive Neilmed Pediatric Sinus Rinse Refill packet RxNorm: 1 Unit Dose NASAL PRN 05/31/20 18 2021 Inactive diclofenac sodium 75 mg tablet,delayed release RxNorm: 875553 1 Tablet(s) PO BID 05/31/20 18 2017 Inactive lisinopril 2.5 mg tablet RxNorm: 648884 1 Tablet(s) PO daily 05/31/20 18 2017 Inactive metoprolol succinate ER 50 mg tablet,extended release 24 hr RxNorm: 509554 1 Tablet(s) PO daily 05/31/20 18 2017 Inactive levothyroxine 50 mcg tablet RxNorm: 483118 1 Tablet(s) PO daily 05/31/20 18 2017 Inactive TRUEplus Lancets 30 gauge RxNorm: 1 Lancets Miscellaneous QAM 05/31/20 18 2017 Inactive 100/box Ventolin HFA 90 mcg/actuation aerosol inhaler RxNorm: 023701 2 Puff(s) INH QID 05/31/20 18 2017 Inactive Aleve 220 mg capsule RxNorm: 6729291 1 Capsule(s) PO BID 05/31/20 18 2018 Inactive ranitidine 150 mg tablet RxNorm: 700544 1 Tablet(s) PO BID 05/31/20 18 2017 Inactive gabapentin 300 mg capsule RxNorm: 681376 1 Capsule(s) PO TID as needed 05/31/20 18 2017 Inactive atorvastatin 20 mg tablet RxNorm: 833213 1 Tablet(s) PO QHS 05/31/20 18 2017 Inactive True Metrix Glucose Test Strip RxNorm: 1 Test Strips Miscellaneous QAM 05/31/20 18 2017 Inactive 50/container Calcium 600-D3 Plus 600 mg calcium-800 unit-50 mg tablet RxNorm: 1 Tablet(s) PO daily take an additonal tablet for itching. 05/31/20 18 2017 Inactive hydrochlorothiazide 12.5 mg tablet RxNorm: 073892 1 Tablet(s) PO QAM 05/31/20 18 2017 Inactive Flintstones Complete (iron) 18 mg iron chewable tablet RxNorm: 1 Tablet(s) PO daily 05/31/20 18 2017 Inactive sertraline 50 mg tablet RxNorm: 436542 1 Tablet(s) PO daily 11/28/19 20 2019 Inactive d-mannose oral powder RxNorm: PO 18 2021 Inactive True Metrix Glucose Meter RxNorm: miscellaneous 08/17/20 19 2018 Inactive loperamide 2 mg tablet RxNorm: 515829 oral 09/29/20 19 2018 Inactive Symbicort 160 mcg-4.5 mcg/actuation HFA aerosol inhaler RxNorm: 7525674 2 Puff(s) INH BID 08/17/202018 Inactive Medication Administered No Medication Administered data Procedures Procedure Codes Date [place] Assessment CPT-4: DSWA 10/03 Hypertension CPT-4: HTN 10/17/2019 Fall Risk Assessment SNOMED CT: 56977996 4 CPT-4: DFRA09/19/2019Functional AssessmentCPT-4: DFA111/20/2018Urinalysis, dip stickCPT-4: 4936113Tobacco Assessment/ScreeningCPT-4: TCA05/24/2019 Patient Health QuestionnaireCPT-4: DPHQ05/24/2019AHA/REBECCA Classification AssessmentCPT-4: DAHA04/25/2019Controlled Substance ReportCPT-4: CTRSU04/25/2019 Urinalysis, dip stickCPT-4: 1479375Urinalysis, dip stickCPT-4: 94006 03/28/20195810N6K-FmwqnhdfgbyaugjGAE-7: 99449BmuqfzuQ1H-AvmepefbputaggsOEI-3: [address]: 729498314 CPT-4: E95Wiwzphn Reason For Visit No Reason For Visit data Plan of Care Planned Activity Notes Codes Status Date Referral: Pending Gynecology Referral Informatio n Referral ProcessedReferral: Pending Pulmonology Referral InformationReferralProcessed Referral: Pending Psychiatry Referral InformationReferralInitiatedReferral: Pending Respiratory Services Referral InformationReferralInitiatedReferral: Pending Ophthalmology Referral InformationReferralInitiatedReferral: [facility] WPtel: [address] [place] [address] USWriter placed a call out to the patient to notify her that it has been recommended that she be seenby 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 Patient agreed to be seen, does not have a provider of choice and no transportationissues. Tool Polisher faxed referral and clinical notes to [facility] in [place], [place] near the patient's home. Patient to [...] prefers a provider in the [place] or [place] area. Tool Polisher placed a call out to everyone listed in the area and the only location that was able to accept the patient's insurance was [address] [address] and spoke with Maylin. Maylin asked that the patient's referral, face sheet and visit notes be faxed to . Tool Polisher faxed over requested documents. Patient appointment confirmation letter generated and mailed to her home address. Patient to call to schedule an appointment.ProcessedReferral: [facility] WPtel: [address] [place] [address] [place], [place] [id number] USPatient notified that it has been advised that she be seen by Neurology. Patient agreed to be seen and prefers to be seen by a provider in the [place], [place] area. Patient denies any concerns with transportation, and prefers to schedule her own appointment. Tool Polisher placed a [facility] and spoke with Neeraj P: who confirmed that their office is able to acceptnew patients and the patient's insurance. After confirming the providers fax number, headline writer faxed over the patient's referral, and [...]
--- OUTSIDE RECORDS SUMMARY | 2023-12-07 02:09 | XMS_ITS | CCD ---
Author Name Leena Culver NP Address [address] [place] [address] [place] [address] Phone Organization [facility] Phone Care Team Providers Care Svp [employer] Name Role Phone Anna Culver NP Primary Care Provider Unav ailable Unavailable Chronic Care Management Unavaila ble Summary Purpose DataExchange Insurance Providers Payer name Policy type / Coverage type Covered democrat ID Effective Begin Date Effective End Date SUKI MAYO [id number] Unknown Unknown Family history Mother Diagnosis Age [...] 05/31/2018 Education level Unknown Some High School 10th05/31/20187593FudlrjmeqoZwfehjjNiwzkijjem90/29/2018Tobacco historySNOMED CT: 658279114Ebd never smoked or chewed mgkvpwr3005/31/2018Alcohol historySNOMED CT: 579204945Leymj drinks gsuofnd7705/31/2018Has the patient ever used illegal drugs? UnknownHas never used illegal drugs05/31/2018DNR Order/ Advanced Directive UnknownFull Code05/31/2018 Allergies, Adverse Reactions, Alerts Substance Reaction Codes Entered Date Inactivated Date Status *No known food allergies Qjtxnfx9909/06/2018No Inactive DateActiveMethylprednisolonehivesRxNorm: 6902 09/06/2018No Inactive DateActive Problems Condition Codes Effective Dates Condition St atus Fecal incontinence ICD-10: R15.9 ICD-9: 787.6003ActiveMixed incontinenceICD-10: N39.46 ICD-9: 788.3308/ActiveDiarrheaICD-10: R19.7 ICD-9: 787.9112ActiveAdjustment disorder with mixed anxiety and depressed moodICD-10: F43.23 ICD-9: 309.2812ActiveAdult BMI 50.0-59.9 kg/sq mICD-10: Z68.43 ICD-9: V85.4308/ActiveHypertensive heart disease with heart failureICD- 10: I11.0 ICD-9: 402.9107/ActiveType 2 diabetes mellitus with peripheral neuropathy ICD-10: E11.42 ICD-9: 250.6002ActiveType 2 diabetes mellitus without complicationsICD- 10: E11.9 ICD-9: 250.0001/10/2018ActiveSinusitisICD-10: J32.9 ICD-9: 473.902ActiveAsthmaICD-10: J45.909 ICD-9: 493.9011ActiveEssential (primary) hypertensionICD-10: I10 ICD-9: 401.901ActiveObstructive sleep apnea (adult) (pediatric)ICD-10: G47.33 ICD-9: 327.2309/ActiveChronic kidney disease, unspecifiedICD-10: N18.9 ICD-9: 585.909ActiveGERD (gastroesophageal reflux disease)ICD-10: K21.9 ICD-9: 530.8112ActiveAcute upper respiratory infection, unspecifiedICD- 10: J06.9 ICD-9: 465.912/12/2018ActiveHypothyroidism, unspecifiedICD-10: E03.9 ICD-9: 244.912ActiveHyperlipidemia, unspecifiedICD-10: E78.5 ICD-9: 272.408ActiveApnea, not elsewhere classifiedICD-10: R06.81 ICD-9: 786.0305/10/2018ActiveEncounter for immunizationICD-10: Z23 ICD-9: V03.907ActiveEncounter for screening, unspecifiedICD-10: Z13.9 ICD-9: V82.912ActivePolyneuropathy, unspecifiedICD-10: G62.9 ICD-9: 356.908ActivePatient Not SeenICD-10: UXZ.01 ICD-9: XZ0.107ActiveEncounter for screening for malignant neoplasm of cervixICD-10: Z12.4 ICD-9: V76.207/ActiveOther terminal system operator (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ICD-10: Z79.899 ICD-9: V58.6907ActiveChest pain, [...] Fill Instructions loperamide 2 mg tablet RxNorm: 422070 1 Tablet(s) Oral as needed take one tablet after each loose stool, maximum of 8 tablets in 24 hours 12/11/19 20 2019 Inactive loperamide 2 mg tablet RxNorm: 616010 1 Tablet(s) Oral as needed take one tablet after each loose stool, maximum of 8 tablets in 24 hours 12/11/19 20 2019 Inactive atorvastatin 40 mg tablet RxNorm: 173124 1 Tablet(s) Oral every day 11/29/19 20 2020 Inactive quetiapine 100 mg tablet RxNorm: 216085 1 Tablet(s) Oral every night at bedtime 11/28/19 20 2019 Inactive sertraline 100 mg tablet RxNorm: 267595 1 Tablet(s) Oral 11/28/19 20 2019 Inactive omeprazole 20 mg capsule,delayed release RxNorm: 315102 1 Capsule(s) Oral every day 11/20/19 20 2019 Inactive amoxicillin 250 mg capsule RxNorm: 234904 1 Capsule(s) Oral three times a day 11/07/19 20 2019 Inactive multivitamin with iron-mineral tablet RxNorm: 1 Tablet(s) Oral every day 10/29/192021 Inactive cetirizine 10 mg tablet RxNorm: 9922545 1 Tablet(s) PO daily 10/20/19 20 2019 Inactive This refill negates all other refills of this medication. Please do not auto refill Singulair 10 mg tablet RxNorm: 891308 1 Tablet(s) PO daily 10/20/19 20 2019 Inactive This refill negates all other refills of this medication gabapentin 300 mg capsule RxNorm: 218467 1 Capsule(s) PO TID 10/20/19 20 2019 Inactive lisinopril 2.5 mg tablet RxNorm: 110373 1 Tablet(s) PO daily 10/20/19 20 2019 Inactive levothyroxine 50 mcg tablet RxNorm: 534509 1 Tablet(s) PO daily 10/20/19 20 2019 Inactive This refill negates all other refills of this medication hydrochlorothiazide 25 mg tablet RxNorm: 936520 1 Tablet(s) Oral every day 10/17/19 20 2019 Inactive fenugreek seed extract 500 mg capsule RxNorm: 1 Capsule(s) Oral three times a day 10/17/19 20 2021 Inactive Alcohol Prep Pads RxNorm: 391462 1 Patch TOP QAM 10/16/19 20 2020 Inactive loperamide 2 mg tablet RxNorm: 671596 1 Tablet(s) Oral as needed take one [...] 2019 Inactive hydrochlorothiazide 25 mg tablet RxNorm: 827940 1 Tablet(s) Oral every day 09/19/20 19 2019 Inactive Sudafed 12 Hour 120 mg tablet,extended release RxNorm: 2980028 1 Tablet(s) Oral every 12 hours as needed 09/11/20 19 2018 Inactive omeprazole 20 mg capsule,delayed release RxNorm: 684871 1 Capsule(s) Oral every day 09/07/20 19 2019 Inactive Sudafed 12 Hour 120 mg tablet,extended release RxNorm: 7362062 1 Tablet(s) Oral every 12 hours as needed 09/04/20 19 2018 Inactive pantoprazole 40 mg tablet,delayed release RxNorm: 523421 1 Tablet(s) Oral every day 08/24/20 19 2018 Inactive discontinue any other H2Blkr. and PPI albuterol sulfate 2.5 mg/3 mL (0.083 %) solution for nebulization RxNorm: 268818 1 Vial Inhalation every four hours as needed as needed for dyspnea 08/17/20 19 2019 Inactive 60/box. This refill negates all other refills of this medication. Please do not fill early. Please do not auto refill. Symbicort 160 mcg-4.5 mcg/actuation HFA aerosol inhaler RxNorm: 2225447 2 Puff(s) INH BID 08/17/20 19 No Stop Date Active Alcohol Prep Pads RxNorm: 093259 1 Patch TOP QAM 08/17/20 19 2019 Inactive True Metrix Glucose Test Strip RxNorm: 1 Test Strips Miscellaneous QAM 08/09/20 19 2019 Inactive 100/container Ventolin HFA 90 mcg/actuation aerosol inhaler RxNorm: 337195 2 Puff(s) INH QID 08/09/20 19 2019 Inactive Please do not fill early. Please do not auto refill. This refill negates all other refills of this medication atorvastatin 40 mg tablet RxNorm: 770866 1 Tablet(s) Oral every day 07/04/20 19 2019 Inactive levmetamfetamine 50 mg nasal inhaler RxNorm: 1 Unit(s) NASAL Q3-4H Do not use more than every 3 hours or 8 times/24hours 06/26/20 19 2021 Inactive Please do not auto refill. This refill negates all other refills of this medication diclofenac sodium 75 mg tablet,delayed release RxNorm: 995336 1 Tablet(s) PO BID 06/26/20 19 2019 Inactive This refill negates all other refills of this medication buspirone 7.5 mg tablet RxNorm: 995088 1 Tablet(s) PO BID 06/26/20 19 2020 Inactive This refill negates all other refills of this medication hydrochlorothiazide 12.5 mg tablet RxNorm: 313938 1 Tablet(s) PO QAM 06/26/20 19 2019 Inactive Ventolin HFA 90 mcg/actuation aerosol inhaler RxNorm: 099323 2 Puff(s) INH QID 06/26/20 19 2018 Inactive Please do not fill early. Please do not auto refill. This refill negates all other refills of this medication Singulair 10 mg tablet RxNorm: 411111 1 Tablet(s) PO daily 06/26/20 19 2019 Inactive This refill negates all other refills of this medication cetirizine 10 mg tablet RxNorm: 3394565 1 Tablet(s) PO daily 06/26/20 19 2019 Inactive This refill negates all other refills of this medication. Please do not auto refill levothyroxine 50 mcg tablet RxNorm: 734158 1 Tablet(s) PO daily 06/26/20 19 2019 Inactive This refill negates all other refills of this medication ranitidine 150 mg tablet RxNorm: 410435 1 Tablet(s) PO BID 06/26/20 19 2018 Inactive This refill negates all other refills of this medication Calcium 600-D3 Plus (mag-zinc) 600 mg calcium-800 unit-50 mg tablet RxNorm: 1 Tablet(s) PO daily take an additonal tablet for itching. 06/26/20 19 2018 Inactive This refill negates all other refills of this medication albuterol sulfate 2.5 mg/3 mL (0.083 %) solution for nebulization RxNorm: 085550 1 Vial INH QID 06/26/20 19 2018 Inactive 60/box. This refill negates all other refills of this medication. Please do not fill early. Please do not auto refill. lisinopril 2.5 mg tablet RxNorm: 871753 1 Tablet(s) PO daily 06/21/20 19 2019 Inactive gabapentin 300 mg capsule RxNorm: 263333 1 Capsule(s) PO TID 06/21/20 19 2019 Inactive atorvastatin 20 mg tablet RxNorm: 083792 1 Tablet(s) PO QHS 06/07/20 19 2018 Inactive This refill negates all other refills of this medication TRUEplus Lancets 30 gauge RxNorm: 1 Lancets Miscellaneous QAM 05/29/20 19 2018 Inactive 100/box gabapentin 300 mg capsule RxNorm: 608728 1 Capsule(s) PO TID 05/03/20 19 2018 Inactive Flintstones Complete (iron) 18 mg iron chewable tablet RxNorm: 1 Tablet(s) PO daily 04/04/20 19 2021 Inactive This refill negates all other refills of this medication gabapentin 300 mg capsule RxNorm: 854877 1 Capsule(s) PO TID as needed 02/01/20 19 2018 Inactive True Metrix Glucose Test Strip RxNorm: 1 Test Strips Miscellaneous QAM 02/01/20 19 2018 Inactive 100/container Alcohol Prep Pads RxNorm: 334761 1 Patch TOP QAM 02/01/20 19 2018 Inactive TRUEplus Lancets 30 gauge RxNorm: 1 Lancets Miscellaneous QAM 02/01/20 19 2018 Inactive 100/box lisinopril 2.5 mg tablet RxNorm: 627909 1 Tablet(s) PO daily 12/28/19 19 2018 Inactive ranitidine 150 mg tablet RxNorm: 141646 1 Tablet(s) PO BID 10/21/192018 Inactive This refill negates all other refills of this medication albuterol sulfate 2.5 mg/3 mL (0.083 %) solution for nebulization RxNorm: 410431 1 Vial INH QID 10/21/19 19 2018 [...] this medication gabapentin 300 mg capsule RxNorm: 616618 1 Capsule(s) PO TID as needed 10/21/19 19 2018 Inactive atorvastatin 20 mg tablet RxNorm: 172341 1 Tablet(s) PO QHS 10/21/19 19 2018 Inactive This refill negates all other refills of this medication trazodone 50 mg tablet RxNorm: 115692 1 Tablet(s) PO QHS 10/21/19 19 2018 Inactive This refill negates all other refills of this medication Ventolin HFA 90 mcg/actuation aerosol inhaler RxNorm: 546440 2 Puff(s) INH QID 10/21/192018 Inactive Please do not fill early. Please do not auto refill. This refill negates all other refills of this medication Calcium 600-D3 Plus 600 mg calcium-800 unit-50 mg tablet RxNorm: 1 Tablet(s) PO daily take an additonal tablet for itching. 10/21/19 19 2018 Inactive This refill negates all other refills of this medication Singulair 10 mg tablet RxNorm: 552144 1 Tablet(s) PO daily 10/21/192018 Inactive This refill negates all other refills of this medication buspirone 7.5 mg tablet RxNorm: 194792 1 Tablet(s) PO BID 10/21/192018 Inactive This refill negates all other refills of this medication diclofenac sodium 75 mg tablet,delayed release RxNorm: 481440 1 Tablet(s) PO BID 10/21/192018 Inactive This refill negates all other refills of this medication hydrochlorothiazide 12.5 mg tablet RxNorm: 169354 1 Tablet(s) PO QAM 10/21/192018 Inactive metoprolol succinate ER 50 mg tablet,extended release 24 hr RxNorm: 022945 1 Tablet(s) PO daily 10/21/192018 Inactive This refill negates all other refills of this medication levothyroxine 50 mcg tablet RxNorm: 177841 1 Tablet(s) PO daily 10/21/192018 Inactive This refill negates all other refills of this medication cetirizine 10 mg tablet RxNorm: 3276996 1 Tablet(s) PO daily 10/21/192018 Inactive This refill negates all other refills of this medication. Please do not auto refill Flintstones Complete (iron) 18 mg iron chewable tablet RxNorm: 1 Tablet(s) PO daily 10/21/192018 Inactive This refill negates all other refills of this medication buspirone 7.5 mg tablet RxNorm: 959366 1 Tablet(s) PO BID 10/12/19 19 2018 Inactive cetirizine 10 mg tablet RxNorm: 0625219 1 Tablet(s) PO daily 09/28/20 18 2018 Inactive Guaiasorb DM 10 mg-100 mg/5 mL oral liquid RxNorm: 940786 10 Milliliter(s) PO As needed every 4 hr 09/24/20 18 2018 Inactive Vicks Vaporub 4.7 %-1.2 %-2.6 % topical ointment RxNorm: 6212833 1 Application TOP TID 09/24/20 18 2018 Inactive levmetamfetamine 50 mg nasal inhaler RxNorm: 1 Unit(s) NASAL Q3-4H 09/24/20 18 2017 Inactive sertraline 50 mg tablet RxNorm: 418734 1 Tablet(s) PO daily 09/09/20 18 2018 Inactive Please note dose trazodone 50 mg tablet RxNorm: 360518 1 Tablet(s) PO QHS 09/06/20 18 2018 Inactive sertraline 50 mg tablet RxNorm: 039359 1 Tablet(s) PO daily 09/06/20 18 2017 Inactive amoxicillin 500 mg tablet RxNorm: 589815 1 Tablet(s) PO Q12H 08/31/20 18 2017 Inactive albuterol sulfate 2.5 mg/3 mL (0.083 %) solution for nebulization RxNorm: 050127 1 Vial INH QID 08/10/202018 Inactive 60/box. Please do not fill early. Please do not auto refill. Prozac 10 mg capsule RxNorm: 948278 1 Capsule(s) PO daily 08/09/20 18 2017 Inactive buspirone 7.5 mg tablet RxNorm: 449553 1 Tablet(s) PO BID 08/09/20 18 2018 Inactive gabapentin 300 mg capsule RxNorm: 736744 1 Capsule(s) PO TID as needed 08/01/20 18 2018 Inactive hydrochlorothiazide 12.5 mg tablet RxNorm: 279944 1 Tablet(s) PO QAM 08/01/20 18 2018 Inactive ranitidine 150 mg tablet RxNorm: 908114 1 Tablet(s) PO BID 08/01/20 18 2018 Inactive Macrobid 100 mg capsule RxNorm: 513427 1 Capsule(s) PO Q12H 06/21/20 18 2017 Inactive Singulair 10 mg tablet RxNorm: 950775 1 Tablet(s) PO daily 06/14/20 18 2018 Inactive Ventolin HFA 90 mcg/actuation aerosol inhaler RxNorm: 6468977 2 Puff(s) INH QID 06/14/20 18 2018 Inactive Singulair 10 mg tablet RxNorm: 016087 1 Tablet(s) PO daily 06/14/20 18 2017 Inactive buspirone 7.5 mg tablet RxNorm: 570294 1 Tablet(s) PO BID 06/14/20 18 2017 Inactive Prozac 10 mg capsule RxNorm: 329983 1 Capsule(s) PO daily 06/14/20 18 2017 Inactive Neilmed Pediatric Sinus Rinse Refill packet RxNorm: 1 Unit Dose NASAL PRN 05/31/20 18 2021 Inactive diclofenac sodium 75 mg tablet,delayed release RxNorm: 900157 1 Tablet(s) PO BID 05/31/20 18 2017 Inactive lisinopril 2.5 mg tablet RxNorm: 228346 1 Tablet(s) PO daily 05/31/20 18 2017 Inactive metoprolol succinate ER 50 mg tablet,extended release 24 hr RxNorm: 168750 1 Tablet(s) PO daily 05/31/20 18 2017 Inactive levothyroxine 50 mcg tablet RxNorm: 112120 1 Tablet(s) PO daily 05/31/20 18 2017 Inactive TRUEplus Lancets 30 gauge RxNorm: 1 Lancets Miscellaneous QAM 05/31/20 18 2017 Inactive 100/box Ventolin HFA 90 mcg/actuation aerosol inhaler RxNorm: 392301 2 Puff(s) INH QID 05/31/20 18 2017 Inactive Aleve 220 mg capsule RxNorm: 2500668 1 Capsule(s) PO BID 05/31/20 18 2018 Inactive ranitidine 150 mg tablet RxNorm: 636265 1 Tablet(s) PO BID 05/31/20 18 2017 Inactive gabapentin 300 mg capsule RxNorm: 180486 1 Capsule(s) PO TID as needed 05/31/20 18 2017 Inactive atorvastatin 20 mg tablet RxNorm: 620998 1 Tablet(s) PO QHS 05/31/20 18 2017 Inactive True Metrix Glucose Test Strip RxNorm: 1 Test Strips [facility] 05/31/20 18 2017 Inactive 50/container Calcium 600-D3 Plus 600 mg calcium-800 unit-50 mg tablet RxNorm: 1 Tablet(s) PO daily take an additonal tablet for itching. 05/31/20 18 2017 Inactive hydrochlorothiazide 12.5 mg tablet RxNorm: 968455 1 Tablet(s) PO QAM 05/31/20 18 2017 Inactive Flintstones Complete (iron) 18 mg iron chewable tablet RxNorm: 1 Tablet(s) PO daily 05/31/20 18 2017 Inactive d-mannose oral powder RxNorm: PO 18 2021 Inactive True Metrix Glucose Meter RxNorm: miscellaneous 08/17/20 19 2018 Inactive sertraline 50 mg tablet RxNorm: 962965 1 Tablet(s) PO daily 11/28/19 20 2019 Inactive loperamide 2 mg tablet RxNorm: 302644 oral 09/29/20 19 2018 Inactive Symbicort 160 mcg-4.5 mcg/actuation HFA aerosol inhaler RxNorm: 1378778 2 Puff(s) INH BID 08/17/20 19 2018 Inactive Medication Administered No Medication Administered data Procedures Procedure Codes Date [place] Assessment CPT-4: DSWA 11/04 Patient Health Questionnaire CPT-4: DPHQ [place] Fany Assessment CPT-4: DSWA 10/03 Hypertension CPT-4: HTN 10/17/2019 Fall Risk Assessment SNOMED CT: 43555019 4 CPT-4: DFRA09/19/2019Functional AssessmentCPT-4: DFA111/20/2018Urinalysis, dip stickCPT-4: 2081165Tobacco Assessment/ScreeningCPT-4: TCA05/24/2019 Patient Health QuestionnaireCPT-4: DPHQ05/24/2019AHA/REBECCA Classification AssessmentCPT-4: DAHA04/25/2019Controlled Substance ReportCPT-4: CTRSU04/25/2019 Urinalysis, dip stickCPT-4: 351470903/28/2019Urinalysis, dip stickCPT-4: 45245 03/28/20193651U8T-TiqjclvdgksgwgwGQS-2: 52128YmchovzT5J-AiqdhurfinxdiclVTW-6: [address]: 618915467 CPT-4: F97Iyvtlop Reason For Visit No Reason For Visit data Plan of Care Planned Activity Notes Codes Status Date Patient Education: Patient Medication Summary Chvjpvrtx25/14/2020Care Plan: Incontinence BgcjwojiBrxfynp73/14/2020Appointment: Anna Culver WPtel: [address] [place] [address] [id number]: Anna Culver WPtel: [address] [place] [address] [id number]: Anna Culver WPtel: [address] [place] [address] [id number]: Sudha Hernadez WPtel: [address] [facility] [id number]: Sudha Hernadez WPtel: [address] [facility] [id number]: Charlene Oropeza WPtel: [address] [facility] [id number]: Rachel Delgado/26/2019Appointment: Charlene Oropeza WPtel: [address] [facility] [id number]: Rasta Palafox WPtel: [address] [facility] [id number] [id number]: Rasta Palafox WPtel: [address] [facility] [id number]: Rasta Palafox WPtel: [address] [facility] BuwgesLQ82558 [id number]: Rasta Palafox WPtel: [address] [facility] [id number]: Pending Gynecology Referral InformationReferral ProcessedReferral: Pending Pulmonology Referral InformationReferralProcessed Referral: Pending Psychiatry Referral InformationReferralInitiatedReferral: Pending Respiratory Services Referral InformationReferralInitiatedReferral: Pending Ophthalmology Referral InformationReferralInitiatedReferral: [facility] WPtel: [address] [place] [address] [address] [id number] USWriter placed a call out to the patient to notify her that it has been recommended that she be seenby 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 Patient agreed to be seen, does not have a provider of choice and no transportationissues. Corporate Officer faxed referral and clinical notes to [facility] in [place], [place] near the patient's home. Patient to [...] seen and prefers a provider in the [place] or [place] area. Corporate Officer placed a call out to everyone listed in the area and the only location that was able to accept the patient's insurance was [facility] [address] [place] [address] and spoke with Maylin. Maylin asked that the patient's referral, face sheet and visit notes be faxed to . Corporate Officer faxed over requested documents. Patient appointment confirmation letter generated and mailed to her home address. Patient to call to schedule an appointment.ProcessedReferral: [facility] [place] [facility] WPtel: [address] [place], [place] [id number] USPatient notified that it has been advised that she be seen by Neurology. Patient agreed to be seen and prefers to be seen by a provider in the [place], [place] area. Patient denies any concerns with transportation, and prefers to schedule her own appointment. Corporate Officer placed a call out to [facility] and spoke with Neeraj P: who confirmed that their office is able to acceptnew patients and the patient's insurance. After confirming the providers fax number, marketing underwriter faxed over the patient's referral, and [...]
--- OUTSIDE RECORDS SUMMARY | 2023-12-07 02:09 | XMS_ITS | CCD ---
Author Name Lenea Culver NP Address [address] [place] [address] [place] [address] Phone Organization [facility] Phone Care Team Providers Care Ld Teacher Name Role Phone Anna Culver NP Primary Care Provider Unav ailable Unavailable Chronic Care Management Unavaila ble Summary Purpose DataExchange Insurance Providers Payer name Policy type / Coverage type Covered republican ID Effective Begin Date Effective End Date SUKI MAYO [id number] Unknown Unknown Family history Mother Diagnosis Age [...] 05/31/2018 Education level Unknown Some High School 10th05/31/20188407PfxepmsivaRzkafucWpwxhosxlb83/29/2018Tobacco historySNOMED CT: 862980851Umy never smoked or chewed aedubvz9505/31/2018Alcohol historySNOMED CT: 447226953Zriqk drinks iqcbdev8505/31/2018Has the patient ever used illegal drugs? UnknownHas never used illegal drugs05/31/2018DNR Order/ Advanced Directive UnknownFull Code05/31/2018 Allergies, Adverse Reactions, Alerts Substance Reaction Codes Entered Date Inactivated Date Status *No known food allergies Ajuzhez8509/06/2018No Inactive DateActiveMethylprednisolonehivesRxNorm: 6902 09/06/2018No Inactive DateActive Problems Condition Codes Effective Dates Condition St atus Diarrhea ICD-10: R19.7 ICD-9: 787.9109/29/2019ActiveAdjustment disorder with mixed anxiety and depressed moodICD-10: [...] ICD-9: 327.2309ActiveChronic kidney disease, unspecifiedICD-10: N18.9 ICD-9: 585.909ActiveMixed incontinenceICD-10: [...] malignant neoplasm of cervixICD-10: Z12.4 ICD-9: V76.207/ActiveOther halfway (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ICD-10: Z79.899 ICD-9: V58.6907/ActiveChest pain, unspecifiedICD-10: R07.9 ICD-9: 786.5002/ActiveEncounter for preprocedural cardiovascular examinationICD-10: Z01.810 ICD-9: V72.8106/ActiveDyspnea, unspecifiedICD-10: R06.00 ICD-9: 786.0905ActivePost-traumatic stress disorder, unspecifiedICD-10: F43.10 ICD-9: 309.8112ActiveWheezingICD-10: R06.2 ICD-9: 786.0711ActiveAbnormal electrocardiogram [ECG] [EKG]ICD-10: R94.31 ICD-9: 794.3108ActiveEdema, unspecifiedICD-10: R60.9 ICD-9: 782.310ActiveHeadacheICD-10: R51 ICD-9: 784.001ActiveLong term (current) use of non-steroidal anti- inflammatories (NSAID)ICD-10: Z79.1 ICD-9: V58.6409Active Medications Medication Codes Instructions Start Date Stop Date Status Fill Instructions loperamide 2 mg tablet RxNorm: 501795 1 Tablet(s) Oral as needed take one tablet after each loose stool, maximum of 8 tablets in 24 hours 12/11/19 20 2019 Inactive loperamide 2 mg tablet RxNorm: 140744 1 Tablet(s) Oral as needed take one tablet after each loose stool, maximum of 8 tablets in 24 hours 12/11/19 20 2019 Inactive atorvastatin 40 mg tablet RxNorm: 812273 1 Tablet(s) Oral every day 11/29/19 20 2020 Inactive quetiapine 100 mg tablet RxNorm: 466555 1 Tablet(s) Oral every night at bedtime 11/28/19 20 2019 Inactive sertraline 100 mg tablet RxNorm: 636403 1 Tablet(s) Oral 11/28/19 20 2019 Inactive omeprazole 20 mg capsule,delayed release RxNorm: 760378 1 Capsule(s) Oral every day 11/20/19 20 2019 Inactive amoxicillin 250 mg capsule RxNorm: 897366 1 Capsule(s) Oral three times a day 11/07/19 20 2019 Inactive multivitamin with iron-mineral tablet RxNorm: 1 Tablet(s) Oral every day 10/29/19 20 2021 Inactive cetirizine 10 mg tablet RxNorm: 2622940 1 Tablet(s) PO daily 10/20/19 20 2019 Inactive This refill negates all other refills of this medication. Please do not auto refill Singulair 10 mg tablet RxNorm: 805700 1 Tablet(s) PO daily 10/20/19 20 2019 Inactive This refill negates all other refills of this medication gabapentin 300 mg capsule RxNorm: 625122 1 Capsule(s) PO TID 10/20/19 20 2019 Inactive lisinopril 2.5 mg tablet RxNorm: 158130 1 Tablet(s) PO daily 10/20/19 20 2019 Inactive levothyroxine 50 mcg tablet RxNorm: 088443 1 Tablet(s) PO daily 10/20/19 20 2019 Inactive This refill negates all other refills of this medication hydrochlorothiazide 25 mg tablet RxNorm: 392625 1 Tablet(s) Oral every day 10/17/19 20 2019 Inactive fenugreek seed extract 500 mg capsule RxNorm: 1 Capsule(s) Oral three times a day 10/17/19 20 2021 Inactive Alcohol Prep Pads RxNorm: 734515 1 Patch TOP QAM 10/16/19 20 2020 Inactive loperamide 2 mg tablet RxNorm: 800922 1 Tablet(s) Oral as needed take one [...] 2019 Inactive hydrochlorothiazide 25 mg tablet RxNorm: 500441 1 Tablet(s) Oral every day 09/19/202019 Inactive Sudafed 12 Hour 120 mg tablet,extended release RxNorm: 3291347 1 Tablet(s) Oral every 12 hours as needed 09/11/20 19 2018 Inactive omeprazole 20 mg capsule,delayed release RxNorm: 625192 1 Capsule(s) Oral every day 09/07/20 19 2019 Inactive Sudafed 12 Hour 120 mg tablet,extended release RxNorm: 9027908 1 Tablet(s) Oral every 12 hours as needed 09/04/20 19 2018 Inactive pantoprazole 40 mg tablet,delayed release RxNorm: 843110 1 Tablet(s) Oral every day 08/24/20 19 2018 Inactive discontinue any other H2Blkr. and PPI albuterol sulfate 2.5 mg/3 mL (0.083 %) solution for nebulization RxNorm: 853753 1 Vial Inhalation every four hours as needed as needed for dyspnea 08/17/202019 Inactive 60/box. This refill negates all other refills of this medication. Please do not fill early. Please do not auto refill. Symbicort 160 mcg-4.5 mcg/actuation HFA aerosol inhaler RxNorm: 0311044 2 Puff(s) INH BID 08/17/20 19 No Stop Date Active Alcohol Prep Pads RxNorm: 585960 1 Patch TOP QAM 08/17/20 19 2019 Inactive True Metrix Glucose Test Strip RxNorm: 1 Test Strips Miscellaneous QAM 08/09/20 19 2019 Inactive 100/container Ventolin HFA 90 mcg/actuation aerosol inhaler RxNorm: 575915 2 Puff(s) INH QID 08/09/20 19 2019 Inactive Please do not fill early. Please do not auto refill. This refill negates all other refills of this medication atorvastatin 40 mg tablet RxNorm: 713118 1 Tablet(s) Oral every day 07/04/20 19 2019 Inactive levmetamfetamine 50 mg nasal inhaler RxNorm: 1 Unit(s) NASAL Q3-4H Do not use more than every 3 hours or 8 times/24hours 06/26/20 19 2021 Inactive Please do not auto refill. This refill negates all other refills of this medication diclofenac sodium 75 mg tablet,delayed release RxNorm: 323150 1 Tablet(s) PO BID 06/26/20 19 2019 Inactive This refill negates all other refills of this medication buspirone 7.5 mg tablet RxNorm: 182723 1 Tablet(s) PO BID 06/26/20 19 2020 Inactive This refill negates all other refills of this medication hydrochlorothiazide 12.5 mg tablet RxNorm: 848977 1 Tablet(s) PO QAM 06/26/20 19 2019 Inactive Ventolin HFA 90 mcg/actuation aerosol inhaler RxNorm: 795317 2 Puff(s) INH QID 06/26/20 19 2018 Inactive Please do not fill early. Please do not auto refill. This refill negates all other refills of this medication Singulair 10 mg tablet RxNorm: 046795 1 Tablet(s) PO daily 06/26/20 19 2019 Inactive This refill negates all other refills of this medication cetirizine 10 mg tablet RxNorm: 9378708 1 Tablet(s) PO daily 06/26/20 19 2019 Inactive This refill negates all other refills of this medication. Please do not auto refill levothyroxine 50 mcg tablet RxNorm: 655436 1 Tablet(s) PO daily 06/26/20 19 2019 Inactive This refill negates all other refills of this medication ranitidine 150 mg tablet RxNorm: 915889 1 Tablet(s) PO BID 06/26/20 19 2018 Inactive This refill negates all other refills of this medication Calcium 600-D3 Plus (mag-zinc) 600 mg calcium-800 unit-50 mg tablet RxNorm: 1 Tablet(s) PO daily take an additonal tablet for itching. 06/26/20 19 2018 Inactive This refill negates all other refills of this medication albuterol sulfate 2.5 mg/3 mL (0.083 %) solution for nebulization RxNorm: 852071 1 Vial INH QID 06/26/20 19 2018 Inactive 60/box. This refill negates all other refills of this medication. Please do not fill early. Please do not auto refill. lisinopril 2.5 mg tablet RxNorm: 654106 1 Tablet(s) PO daily 06/21/20 19 2019 Inactive gabapentin 300 mg capsule RxNorm: 410569 1 Capsule(s) PO TID 06/21/20 19 2019 Inactive atorvastatin 20 mg tablet RxNorm: 615756 1 Tablet(s) PO QHS 06/07/20 19 2018 Inactive This refill negates all other refills of this medication TRUEplus Lancets 30 gauge RxNorm: 1 Lancets Miscellaneous QAM 05/29/20 19 2018 Inactive 100/box gabapentin 300 mg capsule RxNorm: 205271 1 Capsule(s) PO TID 05/03/20 19 2018 Inactive Flintstones Complete (iron) 18 mg iron chewable tablet RxNorm: 1 Tablet(s) PO daily 04/04/20 19 2021 Inactive This refill negates all other refills of this medication gabapentin 300 mg capsule RxNorm: 284776 1 Capsule(s) PO TID as needed 02/01/20 19 2018 Inactive True Metrix Glucose Test Strip RxNorm: 1 Test Strips Miscellaneous QA 02/01/20 19 2018 Inactive 100/container Alcohol Prep Pads RxNorm: 257200 1 Patch TOP [facility] 02/01/20 19 2018 Inactive TRUEplus Lancets 30 gauge RxNorm: 1 Lancets Miscellaneous [facility] 02/01/20 19 2018 Inactive 100/box lisinopril 2.5 mg tablet RxNorm: 327610 1 Tablet(s) PO daily 12/28/192018 Inactive ranitidine 150 mg tablet RxNorm: 221720 1 Tablet(s) PO BID 10/21/192018 Inactive This refill negates all other refills of this medication albuterol sulfate 2.5 mg/3 mL (0.083 %) solution for nebulization RxNorm: 475613 1 Vial INH QID 10/21/192018 Inactive 60/box. [...] this medication gabapentin 300 mg capsule RxNorm: 854702 1 Capsule(s) PO TID as needed 10/21/192018 Inactive atorvastatin 20 mg tablet RxNorm: 799341 1 Tablet(s) PO QHS 10/21/192018 Inactive This refill negates all other refills of this medication trazodone 50 mg tablet RxNorm: 778878 1 Tablet(s) PO QHS 10/21/192018 Inactive This refill negates all other refills of this medication Ventolin HFA 90 mcg/actuation aerosol inhaler RxNorm: 883304 2 Puff(s) INH QID 10/21/19 19 2018 Inactive Please do not fill early. Please do not auto refill. This refill negates all other refills of this medication Calcium 600-D3 Plus 600 mg calcium-800 unit-50 mg tablet RxNorm: 1 Tablet(s) PO daily take an additonal tablet for itching. 10/21/192018 Inactive This refill negates all other refills of this medication Singulair 10 mg tablet RxNorm: 875800 1 Tablet(s) PO daily 10/21/192018 Inactive This refill negates all other refills of this medication buspirone 7.5 mg tablet RxNorm: 800297 1 Tablet(s) PO BID 10/21/19 19 2018 Inactive This refill negates all other refills of this medication diclofenac sodium 75 mg tablet,delayed release RxNorm: 141566 1 Tablet(s) PO BID 10/21/19 19 2018 Inactive This refill negates all other refills of this medication hydrochlorothiazide 12.5 mg tablet RxNorm: 166328 1 Tablet(s) PO QAM 10/21/19 19 2018 Inactive metoprolol succinate ER 50 mg tablet,extended release 24 hr RxNorm: 215985 1 Tablet(s) PO daily 10/21/19 19 2018 Inactive This refill negates all other refills of this medication levothyroxine 50 mcg tablet RxNorm: 324022 1 Tablet(s) PO daily 10/21/192018 Inactive This refill negates all other refills of this medication cetirizine 10 mg tablet RxNorm: 9453999 1 Tablet(s) PO daily 10/21/192018 Inactive This refill negates all other refills of this medication. Please do not auto refill Flintstones Complete (iron) 18 mg iron chewable tablet RxNorm: 1 Tablet(s) PO daily 10/21/192018 Inactive This refill negates all other refills of this medication buspirone 7.5 mg tablet RxNorm: 302082 1 Tablet(s) PO BID 10/12/19 19 2018 Inactive cetirizine 10 mg tablet RxNorm: 6280023 1 Tablet(s) PO daily 09/28/20 18 2018 Inactive Guaiasorb DM 10 mg-100 mg/5 mL oral liquid RxNorm: 255568 10 Milliliter(s) PO As needed every 4 hr 09/24/20 18 2018 Inactive Vicks Vaporub 4.7 %-1.2 %-2.6 % topical ointment RxNorm: 0477790 1 Application TOP TID 09/24/20 18 2018 Inactive levmetamfetamine 50 mg nasal inhaler RxNorm: 1 Unit(s) NASAL Q3-4H 09/24/20 18 2017 Inactive sertraline 50 mg tablet RxNorm: 913165 1 Tablet(s) PO daily 09/09/20 18 2018 Inactive Please note dose trazodone 50 mg tablet RxNorm: 637933 1 Tablet(s) PO QHS 09/06/20 18 2018 Inactive sertraline 50 mg tablet RxNorm: 680811 1 Tablet(s) PO daily 09/06/20 18 2017 Inactive amoxicillin 500 mg tablet RxNorm: 970446 1 Tablet(s) PO Q12H 08/31/20 18 2017 Inactive albuterol sulfate 2.5 mg/3 mL (0.083 %) solution for nebulization RxNorm: 214501 1 Vial INH QID 08/10/20 18 2018 Inactive 60/box. Please do not fill early. Please do not auto refill. Prozac 10 mg capsule RxNorm: 557315 1 Capsule(s) PO daily 08/09/20 18 2017 Inactive buspirone 7.5 mg tablet RxNorm: 335527 1 Tablet(s) PO BID 08/09/20 18 2018 Inactive gabapentin 300 mg capsule RxNorm: 559151 1 Capsule(s) PO TID as needed 08/01/20 18 2018 Inactive hydrochlorothiazide 12.5 mg tablet RxNorm: 584465 1 Tablet(s) PO QAM 08/01/20 18 2018 Inactive ranitidine 150 mg tablet RxNorm: 553172 1 Tablet(s) PO BID 08/01/20 18 2018 Inactive Macrobid 100 mg capsule RxNorm: 155492 1 Capsule(s) PO Q12H 06/21/20 18 2017 Inactive Singulair 10 mg tablet RxNorm: 979017 1 Tablet(s) PO daily 06/14/20 18 2018 Inactive Ventolin HFA 90 mcg/actuation aerosol inhaler RxNorm: 8120093 2 Puff(s) INH QID 06/14/20 18 2018 Inactive Singulair 10 mg tablet RxNorm: 616324 1 Tablet(s) PO daily 06/14/20 18 2017 Inactive buspirone 7.5 mg tablet RxNorm: 921147 1 Tablet(s) PO BID 06/14/20 18 2017 Inactive Prozac 10 mg capsule RxNorm: 380695 1 Capsule(s) PO daily 06/14/20 18 2017 Inactive Neilmed Pediatric Sinus Rinse Refill packet RxNorm: 1 Unit Dose NASAL PRN 05/31/20 18 2021 Inactive diclofenac sodium 75 mg tablet,delayed release RxNorm: 856654 1 Tablet(s) PO BID 05/31/20 18 2017 Inactive lisinopril 2.5 mg tablet RxNorm: 294671 1 Tablet(s) PO daily 05/31/20 18 2017 Inactive metoprolol succinate ER 50 mg tablet,extended release 24 hr RxNorm: 254064 1 Tablet(s) PO daily 05/31/20 18 2017 Inactive levothyroxine 50 mcg tablet RxNorm: 173459 1 Tablet(s) PO daily 05/31/20 18 2017 Inactive TRUEplus Lancets 30 gauge RxNorm: 1 Lancets Miscellaneous QAM 05/31/20 18 2017 Inactive 100/box Ventolin HFA 90 mcg/actuation aerosol inhaler RxNorm: 592785 2 Puff(s) INH QID 05/31/20 18 2017 Inactive Aleve 220 mg capsule RxNorm: 2757068 1 Capsule(s) PO BID 05/31/20 18 2018 Inactive ranitidine 150 mg tablet RxNorm: 174901 1 Tablet(s) PO BID 05/31/20 18 2017 Inactive gabapentin 300 mg capsule RxNorm: 854697 1 Capsule(s) PO TID as needed 05/31/20 18 2017 Inactive atorvastatin 20 mg tablet RxNorm: 328892 1 Tablet(s) PO QHS 05/31/20 18 2017 Inactive True Metrix Glucose Test Strip RxNorm: 1 Test Strips Miscellaneous QA 05/31/20 18 2017 Inactive 50/container Calcium 600-D3 Plus 600 mg calcium-800 unit-50 mg tablet RxNorm: 1 Tablet(s) PO daily take an additonal tablet for itching. 05/31/20 18 2017 Inactive hydrochlorothiazide 12.5 mg tablet RxNorm: 070313 1 Tablet(s) PO QAM 05/31/20 18 2017 Inactive Flintstones Complete (iron) 18 mg iron chewable tablet RxNorm: 1 Tablet(s) PO daily 05/31/20 18 2017 Inactive d-mannose oral powder RxNorm: PO 18 2021 Inactive True Metrix Glucose Meter RxNorm: miscellaneous 08/17/20 19 2018 Inactive sertraline 50 mg tablet RxNorm: 502887 1 Tablet(s) PO daily 11/28/19 20 2019 Inactive loperamide 2 mg tablet RxNorm: 385642 oral 09/29/20 19 2018 Inactive Symbicort 160 mcg-4.5 mcg/actuation HFA aerosol inhaler RxNorm: 0826089 2 Puff(s) INH BID 08/17/20 19 2018 Inactive Medication Administered No Medication Administered data Procedures Procedure Codes Date [place] Assessment CPT-4: DSWA 11/04 Patient Health Questionnaire CPT-4: DPHQ [place] Assessment CPT-4: DSWA 10/03 Hypertension CPT-4: HTN 10/17/2019 Fall Risk Assessment SNOMED CT: 68516970 4 CPT-4: DFRA09/19/2019Functional AssessmentCPT-4: DFA111/20/2018Urinalysis, dip stickCPT-4: 486097906/21/2019Tobacco Assessment/ScreeningCPT-4: TCA05/24/2019 Patient Health QuestionnaireCPT-4: DPHQ05/24/2019AHA/REBECCA Classification AssessmentCPT-4: DAHA04/25/2019Controlled Substance ReportCPT-4: CTRSU04/25/2019 Urinalysis, dip stickCPT-4: 646083603/28/2019Urinalysis, dip stickCPT-4: 58060 03/28/20197209K7S-GusevcyfhfpqyotVLH-6: 65331RhsqnxmR7Y-MlpzfjpoprdepiyZXY-0: 14861 UnknownGynecology [facility]SBRI[facility]: [id number] CPT-4: T11Gbonjmb Reason For Visit No Reason For Visit data Plan of Care Planned Activity Notes Codes Status Date Patient Education: Patient Medication Summary Xhonfnyzc02/10/2020Appointment: Anna Culver WPtel: [address] [place] [address] [id number]: Anna Culver WPtel: [address] [place] [address] [id number]: Anna Culver WPtel: [address] [place] [address] [id number]: Sudha Hernadez WPtel: [facility] [place] [facility] [id number]: Sudha Hernadez WPtel: [facility] [place] [facility] [id number]: Charlene Oropeza WPtel: [address] [place] [facility] [id number]: Enedelia [id number]: Charlene Oropeza WPtel: [facility] [place] [facility] [id number]: Rasta Palafox WPtel: [address] [place] [id number]: Rasta Palafox WPtel: [address] [place] [facility] [id number]: Rasta Palafox WPtel: [address] [place] [facility] [id number]: Rasta Palafox WPtel: [address] [place] [id number]: Pending Gynecology Referral InformationReferral ProcessedReferral: Pending Pulmonology Referral InformationReferralProcessed Referral: Pending Psychiatry Referral InformationReferralInitiatedReferral: Pending Respiratory Services Referral InformationReferralInitiatedReferral: Pending Ophthalmology Referral InformationReferralInitiatedReferral: [facility] WPtel: [address] [place], [place] [id number] USWriter placed a call out to the patient to notify her that it has been recommended that she be seenby 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 Patient agreed to be seen, does not have a provider of choice and no transportationissues. Life Sciences Instructor faxed referral and clinical notes to [facility] in [place], [place] near the patient's home. Patient to [...] seen and prefers a provider in the [place] or [facility]. Life Sciences Instructor placed a call out to everyone listed in the area and the only location that was able to accept the patient's insurance was [facility] [address] [place] [address] and spoke with Maylin. Maylin asked that the patient's referral, face sheet and visit notes be faxed to . Life Sciences Instructor faxed over requested documents. Patient appointment confirmation letter generated and mailed to her home address. Patient to call to schedule an appointment.ProcessedReferral: [facility] WPtel: [address] [id number] USPatient notified that it has been advised that she be seen by Neurology. Patient agreed to be seen and prefers to be seen by a provider in the [place], [place] area. Patient denies any concerns with transportation, and prefers to schedule her own appointment. Life Sciences Instructor placed a call out to [facility] and spoke with Neeraj Mcfarland: who confirmed that their office is able to acceptnew patients and the patient's insurance. After confirming the providers fax number, editorial writer faxed over the patient's referral, and [...]
--- OUTSIDE RECORDS SUMMARY | 2023-12-07 02:09 | XMS_ITS | CCD ---
Author Name Leena Culver NP Address [address] [place] [address] [place] [address] Phone Organization [facility] Phone Care Team Providers Care Gauge Operator Name Role Phone Anna Culver NP Primary Care Provider Unav ailable Unavailable Chronic Care Management Unavaila ble Summary Purpose DataExchange Insurance Providers Payer name Policy type / Coverage type Covered democrat ID Effective Begin Date Effective End Date SUKI MAYO [id number] Unknown Unknown Family history Mother Diagnosis Age [...] 05/31/2018 Education level Unknown Some High School 10th05/31/20180100HbrmfdndbyEzfyjiyQjrhlmnqjt35/29/2018Tobacco historySNOMED CT: 655473934Gzt never smoked or chewed bygrvfp2105/31/2018Alcohol historySNOMED CT: 827828619Vcncg drinks ycscgqm0305/31/2018Has the patient ever used illegal drugs? UnknownHas never used illegal drugs05/31/2018DNR Order/ Advanced Directive UnknownFull Code05/31/2018 Allergies, Adverse Reactions, Alerts Substance Reaction Codes Entered Date Inactivated Date Status *No known food allergies Skusnzy6209/06/2018No Inactive DateActiveMethylprednisolonehivesRxNorm: 6902 09/06/2018No Inactive DateActive Problems [...] ICD-9: 787.9112ActiveChronic kidney disease, unspecifiedICD-10: N18.9 ICD-9: 585.909/ActiveMixed incontinenceICD-10: N39.46 ICD-9: 788.3308ActiveGERD (gastroesophageal reflux disease)ICD-10: K21.9 ICD-9: 530.8112ActiveAcute upper respiratory infection, unspecifiedICD- 10: J06.9 ICD-9: 465.912ActiveHypothyroidism, unspecifiedICD-10: E03.9 ICD-9: 244.912ActiveHyperlipidemia, unspecifiedICD-10: E78.5 ICD-9: 272.408ActiveApnea, not elsewhere classifiedICD-10: R06.81 ICD-9: 786.0305ActiveEncounter for immunizationICD-10: Z23 ICD-9: V03.907ActiveEncounter for screening, unspecifiedICD-10: Z13.9 ICD-9: V82.912ActivePolyneuropathy, unspecifiedICD-10: G62.9 ICD-9: 356.908ActivePatient Not SeenICD-10: UXZ.01 ICD-9: XZ0.107ActiveEncounter for screening for malignant neoplasm of cervixICD-10: Z12.4 ICD-9: V76.207ActiveOther usp (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ICD-10: Z79.899 ICD-9: V58.6907ActiveBody [...] Fill Instructions amoxicillin 250 mg capsule RxNorm: 281446 1 Capsule(s) Oral three times a day 11/07/19 20 2019 Inactive multivitamin with iron-mineral tablet RxNorm: 1 Tablet(s) Oral every day 10/29/19 20 2021 Inactive cetirizine 10 mg tablet RxNorm: 1168449 1 Tablet(s) PO daily 10/20/192019 Inactive This refill negates all other refills of this medication. Please do not auto refill Singulair 10 mg tablet RxNorm: 197771 1 Tablet(s) PO daily 10/20/19 20 2019 Inactive This refill negates all other refills of this medication gabapentin 300 mg capsule RxNorm: 057079 1 Capsule(s) PO TID 10/20/19 20 2019 Inactive lisinopril 2.5 mg tablet RxNorm: 070635 1 Tablet(s) PO daily 10/20/19 20 2019 Inactive levothyroxine 50 mcg tablet RxNorm: 853051 1 Tablet(s) PO daily 10/20/192019 Inactive This refill negates all other refills of this medication hydrochlorothiazide 25 mg tablet RxNorm: 742804 1 Tablet(s) Oral every day 10/17/19 20 2019 Inactive fenugreek seed extract 500 mg capsule RxNorm: 1 Capsule(s) Oral three times a day 10/17/192021 Inactive Alcohol Prep Pads RxNorm: 500775 1 Patch TOP QAM 10/16/19 20 2020 Inactive loperamide 2 mg tablet RxNorm: 689278 1 Tablet(s) Oral as needed take one [...] 2019 Inactive hydrochlorothiazide 25 mg tablet RxNorm: 017412 1 Tablet(s) Oral every day 09/19/20 19 2019 Inactive Sudafed 12 Hour 120 mg tablet,extended release RxNorm: 8704435 1 Tablet(s) Oral every 12 hours as needed 09/11/20 19 2018 Inactive omeprazole 20 mg capsule,delayed release RxNorm: 602969 1 Capsule(s) Oral every day 09/07/20 19 2019 Inactive Sudafed 12 Hour 120 mg tablet,extended release RxNorm: 9875033 1 Tablet(s) Oral every 12 hours as needed 09/04/20 19 2018 Inactive pantoprazole 40 mg tablet,delayed release RxNorm: 695064 1 Tablet(s) Oral every day 08/24/20 19 2018 Inactive discontinue any other H2Blkr. and PPI albuterol sulfate 2.5 mg/3 mL (0.083 %) solution for nebulization RxNorm: 764697 1 Vial Inhalation every four hours as needed as needed for dyspnea 08/17/20 19 2019 Inactive 60/box. This refill negates all other refills of this medication. Please do not fill early. Please do not auto refill. Symbicort 160 mcg-4.5 mcg/actuation HFA aerosol inhaler RxNorm: 7019017 2 Puff(s) INH BID 08/17/20 19 No Stop Date Active Alcohol Prep Pads RxNorm: 902680 1 Patch TOP QAM 08/17/20 19 2019 Inactive True Metrix Glucose Test Strip RxNorm: 1 Test Strips Miscellaneous QAM 08/09/20 19 2019 Inactive 100/container Ventolin HFA 90 mcg/actuation aerosol inhaler RxNorm: 993313 2 Puff(s) INH QID 08/09/20 19 2019 Inactive Please do not fill early. Please do not auto refill. This refill negates all other refills of this medication atorvastatin 40 mg tablet RxNorm: 575168 1 Tablet(s) Oral every day 07/04/20 19 2019 Inactive levmetamfetamine 50 mg nasal inhaler RxNorm: 1 Unit(s) NASAL Q3-4H Do not use more than every 3 hours or 8 times/24hours 06/26/20 19 2021 Inactive Please do not auto refill. This refill negates all other refills of this medication diclofenac sodium 75 mg tablet,delayed release RxNorm: 946200 1 Tablet(s) PO BID 06/26/20 19 2019 Inactive This refill negates all other refills of this medication buspirone 7.5 mg tablet RxNorm: 198308 1 Tablet(s) PO BID 06/26/20 19 2020 Inactive This refill negates all other refills of this medication hydrochlorothiazide 12.5 mg tablet RxNorm: 961341 1 Tablet(s) PO QAM 06/26/20 19 2019 Inactive Ventolin HFA 90 mcg/actuation aerosol inhaler RxNorm: 200737 2 Puff(s) INH QID 06/26/20 19 2018 Inactive Please do not fill early. Please do not auto refill. This refill negates all other refills of this medication Singulair 10 mg tablet RxNorm: 751822 1 Tablet(s) PO daily 06/26/20 19 2019 Inactive This refill negates all other refills of this medication cetirizine 10 mg tablet RxNorm: 8488804 1 Tablet(s) PO daily 06/26/20 19 2019 Inactive This refill negates all other refills of this medication. Please do not auto refill levothyroxine 50 mcg tablet RxNorm: 383478 1 Tablet(s) PO daily 06/26/20 19 2019 Inactive This refill negates all other refills of this medication ranitidine 150 mg tablet RxNorm: 054136 1 Tablet(s) PO BID 06/26/20 19 2018 Inactive This refill negates all other refills of this medication Calcium 600-D3 Plus (mag-zinc) 600 mg calcium-800 unit-50 mg tablet RxNorm: 1 Tablet(s) PO daily take an additonal tablet for itching. 06/26/20 19 2018 Inactive This refill negates all other refills of this medication albuterol sulfate 2.5 mg/3 mL (0.083 %) solution for nebulization RxNorm: 570265 1 Vial INH QID 06/26/20 19 2018 Inactive 60/box. This refill negates all other refills of this medication. Please do not fill early. Please do not auto refill. lisinopril 2.5 mg tablet RxNorm: 484998 1 Tablet(s) PO daily 06/21/20 19 2019 Inactive gabapentin 300 mg capsule RxNorm: 306602 1 Capsule(s) PO TID 06/21/20 19 2019 Inactive atorvastatin 20 mg tablet RxNorm: 972578 1 Tablet(s) PO QHS 06/07/20 19 2018 Inactive This refill negates all other refills of this medication TRUEplus Lancets 30 gauge RxNorm: 1 Lancets Miscellaneous QAM 05/29/20 19 2018 Inactive 100/box gabapentin 300 mg capsule RxNorm: 561861 1 Capsule(s) PO TID 05/03/20 19 2018 Inactive [place] Complete (iron) 18 mg iron chewable tablet RxNorm: 1 Tablet(s) PO daily 04/04/20 19 2021 Inactive This refill negates all other refills of this medication gabapentin 300 mg capsule RxNorm: 169380 1 Capsule(s) PO TID as needed 02/01/20 19 2018 Inactive True Metrix Glucose Test Strip RxNorm: 1 Test Strips Miscellaneous QAM 02/01/20 19 2018 Inactive 100/container Alcohol Prep Pads RxNorm: 592607 1 Patch TOP QAM 02/01/20 19 2018 Inactive TRUEplus Lancets 30 gauge RxNorm: 1 Lancets Miscellaneous QAM 02/01/20 19 2018 Inactive 100/box lisinopril 2.5 mg tablet RxNorm: 287295 1 Tablet(s) PO daily 12/28/19 19 2018 Inactive ranitidine 150 mg tablet RxNorm: 553009 1 Tablet(s) PO BID 10/21/19 19 2018 Inactive This refill negates all other refills of this medication albuterol sulfate 2.5 mg/3 mL (0.083 %) solution for nebulization RxNorm: 145240 1 Vial INH QID 10/21/19 19 2018 [...] this medication gabapentin 300 mg capsule RxNorm: 919604 1 Capsule(s) PO TID as needed 10/21/192018 Inactive atorvastatin 20 mg tablet RxNorm: 881025 1 Tablet(s) PO QHS 10/21/192018 Inactive This refill negates all other refills of this medication trazodone 50 mg tablet RxNorm: 443228 1 Tablet(s) PO QHS 10/21/192018 Inactive This refill negates all other refills of this medication Ventolin HFA 90 mcg/actuation aerosol inhaler RxNorm: 211234 2 Puff(s) INH QID 10/21/192018 Inactive Please do not fill early. Please do not auto refill. This refill negates all other refills of this medication Calcium 600-D3 Plus 600 mg calcium-800 unit-50 mg tablet RxNorm: 1 Tablet(s) PO daily take an additonal tablet for itching. 10/21/192018 Inactive This refill negates all other refills of this medication Singulair 10 mg tablet RxNorm: 678349 1 Tablet(s) PO daily 10/21/192018 Inactive This refill negates all other refills of this medication buspirone 7.5 mg tablet RxNorm: 393603 1 Tablet(s) PO BID 10/21/192018 Inactive This refill negates all other refills of this medication diclofenac sodium 75 mg tablet,delayed release RxNorm: 522778 1 Tablet(s) PO BID 10/21/19 19 2018 Inactive This refill negates all other refills of this medication hydrochlorothiazide 12.5 mg tablet RxNorm: 683235 1 Tablet(s) PO QAM 10/21/192018 Inactive metoprolol succinate ER 50 mg tablet,extended release 24 hr RxNorm: 159213 1 Tablet(s) PO daily 10/21/19 19 2018 Inactive This refill negates all other refills of this medication levothyroxine 50 mcg tablet RxNorm: 366979 1 Tablet(s) PO daily 10/21/19 19 2018 Inactive This refill negates all other refills of this medication cetirizine 10 mg tablet RxNorm: 6695409 1 Tablet(s) PO daily 10/21/19 19 2018 Inactive This refill negates all other refills of this medication. Please do not auto refill [place] Complete (iron) 18 mg iron chewable tablet RxNorm: 1 Tablet(s) PO daily 10/21/19 19 2018 Inactive This refill negates all other refills of this medication buspirone 7.5 mg tablet RxNorm: 546530 1 Tablet(s) PO BID 10/12/192018 Inactive cetirizine 10 mg tablet RxNorm: 2327403 1 Tablet(s) PO daily 09/28/20 18 2018 Inactive Guaiasorb DM 10 mg-100 mg/5 mL oral liquid RxNorm: 702247 10 Milliliter(s) PO As needed every 4 hr 09/24/202018 Inactive Vicks Vaporub 4.7 %-1.2 %-2.6 % topical ointment RxNorm: 5944385 1 Application TOP TID 09/24/20 18 2018 Inactive levmetamfetamine 50 mg nasal inhaler RxNorm: 1 Unit(s) NASAL Q3-4H 09/24/20 18 2017 Inactive sertraline 50 mg tablet RxNorm: 926123 1 Tablet(s) PO daily 09/09/20 18 2018 Inactive Please note dose trazodone 50 mg tablet RxNorm: 968285 1 Tablet(s) PO QHS 09/06/20 18 2018 Inactive sertraline 50 mg tablet RxNorm: 409923 1 Tablet(s) PO daily 09/06/20 18 2017 Inactive amoxicillin 500 mg tablet RxNorm: 931689 1 Tablet(s) PO Q12H 08/31/20 18 2017 Inactive albuterol sulfate 2.5 mg/3 mL (0.083 %) solution for nebulization RxNorm: 846319 1 Vial INH QID 08/10/20 18 2018 Inactive 60/box. Please do not fill early. Please do not auto refill. Prozac 10 mg capsule RxNorm: 881207 1 Capsule(s) PO daily 08/09/20 18 2017 Inactive buspirone 7.5 mg tablet RxNorm: 332930 1 Tablet(s) PO BID 08/09/20 18 2018 Inactive gabapentin 300 mg capsule RxNorm: 392849 1 Capsule(s) PO TID as needed 08/01/20 18 2018 Inactive hydrochlorothiazide 12.5 mg tablet RxNorm: 811720 1 Tablet(s) PO QAM 08/01/20 18 2018 Inactive ranitidine 150 mg tablet RxNorm: 712358 1 Tablet(s) PO BID 08/01/20 18 2018 Inactive Macrobid 100 mg capsule RxNorm: 470213 1 Capsule(s) PO Q12H 06/21/20 18 2017 Inactive Singulair 10 mg tablet RxNorm: 693207 1 Tablet(s) PO daily 06/14/20 18 2018 Inactive Ventolin HFA 90 mcg/actuation aerosol inhaler RxNorm: 2965297 2 Puff(s) INH QID 06/14/20 18 2018 Inactive Singulair 10 mg tablet RxNorm: 515279 1 Tablet(s) PO daily 06/14/20 18 2017 Inactive buspirone 7.5 mg tablet RxNorm: 602310 1 Tablet(s) PO BID 06/14/20 18 2017 Inactive Prozac 10 mg capsule RxNorm: 457063 1 Capsule(s) PO daily 06/14/20 18 2017 Inactive Neilmed Pediatric Sinus Rinse Refill packet RxNorm: 1 Unit Dose NASAL PRN 05/31/20 18 2021 Inactive diclofenac sodium 75 mg tablet,delayed release RxNorm: 368199 1 Tablet(s) PO BID 05/31/20 18 2017 Inactive lisinopril 2.5 mg tablet RxNorm: 863624 1 Tablet(s) PO daily 05/31/20 18 2017 Inactive metoprolol succinate ER 50 mg tablet,extended release 24 hr RxNorm: 600692 1 Tablet(s) PO daily 05/31/20 18 2017 Inactive levothyroxine 50 mcg tablet RxNorm: 828605 1 Tablet(s) PO daily 05/31/20 18 2017 Inactive TRUEplus Lancets 30 gauge RxNorm: 1 Lancets Miscellaneous QAM 05/31/20 18 2017 Inactive 100/box Ventolin HFA 90 mcg/actuation aerosol inhaler RxNorm: 599831 2 Puff(s) INH QID 05/31/20 18 2017 Inactive Aleve 220 mg capsule RxNorm: 9900694 1 Capsule(s) PO BID 05/31/20 18 2018 Inactive ranitidine 150 mg tablet RxNorm: 792014 1 Tablet(s) PO BID 05/31/20 18 2017 Inactive gabapentin 300 mg capsule RxNorm: 013564 1 Capsule(s) PO TID as needed 05/31/20 18 2017 Inactive atorvastatin 20 mg tablet RxNorm: 308440 1 Tablet(s) PO QHS 05/31/20 18 2017 Inactive True Metrix Glucose Test Strip RxNorm: 1 Test Strips Miscellaneous QAM 05/31/20 18 2017 Inactive 50/container Calcium 600-D3 Plus 600 mg calcium-800 unit-50 mg tablet RxNorm: 1 Tablet(s) PO daily take an additonal tablet for itching. 05/31/20 18 2017 Inactive hydrochlorothiazide 12.5 mg tablet RxNorm: 208089 1 Tablet(s) PO QAM 05/31/20 18 2017 Inactive [place] Complete (iron) 18 mg iron chewable tablet RxNorm: 1 Tablet(s) PO daily 05/31/20 18 2017 Inactive sertraline 50 mg tablet RxNorm: 599202 1 Tablet(s) PO daily 02/26/2019 Inactive d-mannose oral powder RxNorm: PO 18 2021 Inactive True Metrix Glucose Meter RxNorm: miscellaneous 08/17/20 19 2018 Inactive loperamide 2 mg tablet RxNorm: 963432 oral 09/29/20 19 2018 Inactive Symbicort 160 mcg-4.5 mcg/actuation HFA aerosol inhaler RxNorm: 6818242 2 Puff(s) INH BID 08/17/20 19 2018 Inactive Medication Administered No Medication Administered data Procedures Procedure Codes Date [place] Fany Assessment CPT-4: DSWA 10/03 Hypertension CPT-4: HTN 10/17/2019 Fall Risk Assessment SNOMED CT: 64352071 4 CPT-4: DFRA09/19/2019Functional AssessmentCPT-4: DFA111/20/2018Urinalysis, dip stickCPT-4: 655291706/21/2019Tobacco Assessment/ScreeningCPT-4: TCA05/24/2019 Patient Health QuestionnaireCPT-4: DPHQ05/24/2019AHA/REBECCA Classification AssessmentCPT-4: DAHA04/25/2019Controlled Substance ReportCPT-4: CTRSU04/25/2019 Urinalysis, dip stickCPT-4: 646734303/28/2019Urinalysis, dip stickCPT-4: 10060 03/28/20193269Y0W-UgeaqhdnzhakspuOKX-0: 71857AmhvwmvV3W-JogozyehseysbamIYA-0: [address]: 573561087 CPT-4: T90Avjcjvw Reason For Visit No Reason For Visit data Plan of Care Planned Activity Notes Codes Status Date Patient Education: Patient Medication Summary Ccbyackev15/05/2020Appointment: Anna Culver WPtel: [address] [place] [address] [id number]: Anna Culver WPtel: [address] [place] [address] [id number]: Sudha Hernadez WPtel: [address] [facility] [address] [id number]: Sudha Hernadez WPtel: [address] [facility] [address] [id number]: Charlene Oropeza WPtel: [address] [facility] [address] [id number]: Danny SdqzibG15643/26/2019Appointment: Charlene Oropeza WPtel: [address] [facility] [id number]: Javy Rasta WPtel: [address] [facility] [id number]: Hasenthilricht, Rasta WPtel: [address] [facility] b [id number]: Javy, Rasta WPtel: [address] [facility] [address] [id number]: Javy Rasta WPtel: [address] [facility] b [id number]: Pending Gynecology Referral InformationReferral ProcessedReferral: Pending Pulmonology Referral InformationReferralProcessed Referral: Pending Psychiatry Referral InformationReferralInitiatedReferral: Pending Respiratory Services Referral InformationReferralInitiatedReferral: Pending Ophthalmology Referral InformationReferralInitiatedReferral: [facility] WPtel: [address] [place], [place] [id number] USWriter placed a call out to the patient to notify her that it has been recommended that she be seenby 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 Patient agreed to be seen, does not have a provider of choice and no transportationissues. Mash Preparatory Operator faxed referral and clinical notes to [facility] in [place], [place] near the patient's home. Patient to [...] seen and prefers a provider in the [place] or [place] area. Mash Preparatory Operator placed a call out to everyone listed in the area and the only location that was able to accept the patient's insurance was [address] [address] and spoke with Maylin. Maylin asked that the patient's referral, face sheet and visit notes be faxed to . Mash Preparatory Operator faxed over requested documents. Patient appointment confirmation letter generated and mailed to her home address. Patient to call to schedule an appointment.ProcessedReferral: [facility] WPtel: [address] [place] [address] [place], [place] [id number] USPatient notified that it has been advised that she be seen by Neurology. Patient agreed to be seen and prefers to be seen by a provider in the [place], [place] area. Patient denies any concerns with transportation, and prefers to schedule her own appointment. Mash Preparatory Operator placed a call out to [facility] and spoke with Neeraj P: who confirmed that their office is able to acceptnew patients and the patient's insurance. After confirming the providers fax number, creative writer faxed over the patient's referral, and [...]
--- OUTSIDE RECORDS SUMMARY | 2023-12-07 02:10 | XMS_ITS | CCD ---
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 Commercial Driver'S License Driver Name Role Phone Palomo KING, Anna Primary Care Provider Unav ailable Unavailable Chronic Care Management Unavaila ble Summary Purpose DataExchange Insurance Providers Payer name Policy type / Coverage type Covered constitution party ID Effective Begin Date Effective End Date [employer] [facility] [id number] Unknown Unknown Family history Mother Diagnosis Age [...] 05/31/2018 Education level Unknown Some High School 10th05/31/20182652HvtbzqxchxRfgekmeYevuvsgysn81/29/2018Tobacco historySNOMED CT: 231609067Rtq never smoked or chewed rhnrmlt5105/31/2018Alcohol historySNOMED CT: 736287365Tcpul drinks hzhlrvh3205/31/2018Has the patient ever used illegal drugs? UnknownHas never used illegal drugs05/31/2018DNR Order/ Advanced Directive UnknownFull Code05/31/2018 Allergies, Adverse Reactions, Alerts Substance Reaction Codes Entered Date Inactivated Date Status *No known food allergies Fkcvenj5509/06/2018No Inactive DateActiveMethylprednisolonehivesRxNorm: 6902 09/06/2018No Inactive DateActive Problems Condition Codes Effective Dates Condition St atus Encounter for screening for tobacco use ICD-10: Z01.89 ICD-9: V72.8503ActiveEssential (primary) hypertensionICD-10: I10 ICD-9: 401.901ActivePink eyeICD-10: H10.029 ICD-9: 372.0303ActiveSyncope and collapseICD-10: R55 ICD-9: 780.203ActiveType 2 diabetes mellitus with peripheral neuropathy ICD-10: E11.42 ICD-9: 250.6002ActiveFecal incontinenceICD-10: R15.9 ICD-9: 787.6003ActiveMixed incontinenceICD-10: N39.46 ICD-9: 788.3308ActiveDiarrheaICD-10: R19.7 ICD-9: 787.9112ActiveAdjustment disorder with mixed anxiety and depressed moodICD-10: F43.23 ICD-9: 309.2812ActiveAdult BMI 50.0-59.9 kg/sq mICD-10: Z68.43 ICD-9: V85.4308ActiveHypertensive heart disease with heart failureICD- 10: I11.0 ICD-9: 402.9107ActiveType 2 diabetes mellitus without complicationsICD- 10: E11.9 ICD-9: 250.0001ActiveSinusitisICD-10: J32.9 ICD-9: 473.902ActiveAsthmaICD-10: J45.909 ICD-9: 493.9011ActiveObstructive sleep apnea (adult) (pediatric)ICD-10: G47.33 ICD-9: 327.2309ActiveChronic kidney disease, unspecifiedICD-10: N18.9 ICD-9: 585.909ActiveGERD (gastroesophageal reflux disease)ICD-10: K21.9 ICD-9: 530.8112ActiveAcute upper respiratory infection, unspecifiedICD- 10: J06.9 ICD-9: 465.912ActiveHypothyroidism, unspecifiedICD-10: E03.9 ICD-9: 244.912ActiveHyperlipidemia, unspecifiedICD-10: E78.5 ICD-9: 272.408/ActiveApnea, not elsewhere classifiedICD-10: R06.81 ICD-9: 786.0305/10/2018ActiveEncounter for immunizationICD-10: Z23 ICD-9: V03.907/ActiveEncounter for screening, [...] [EKG]ICD-10: R94.31 ICD-9: 794.3108/ActiveEdema, unspecifiedICD-10: R60.9 ICD-9: 782.310/06/2018ActiveHeadacheICD-10: R51 ICD-9: 784.001ActiveLong term (current) use of non-steroidal anti- inflammatories (NSAID)ICD-10: Z79.1 ICD-9: V58.6409Active Medications Medication Codes Instructions Start Date Stop Date Status Fill Instructions levothyroxine 50 mcg tablet RxNorm: 370490 1 Tablet(s) PO daily 01/15/20 20 2019 Inactive lisinopril 2.5 mg tablet RxNorm: 927577 1 Tablet(s) PO daily 01/15/20 20 2020 Inactive gabapentin 300 mg capsule RxNorm: 865632 1 Capsule(s) PO TID 01/15/20 20 2019 Inactive cetirizine 10 mg tablet RxNorm: 3657889 1 Tablet(s) PO daily 01/15/20 20 2019 Inactive Singulair 10 mg tablet RxNorm: 404826 1 Tablet(s) PO daily 01/15/20 20 2020 Inactive gentamicin 0.3 % eye drops RxNorm: 439607 1 Drop(s) ophthalmic (eye) four times a day 12/29/19 20 2019 Inactive gentamicin 0.3 % eye drops RxNorm: 975333 1 Drop(s) ophthalmic (eye) four times a day 12/29/19 20 2019 Inactive gentamicin 0.3 % eye drops RxNorm: 423981 1 Drop(s) ophthalmic (eye) four times a day 12/29/19 20 2019 Inactive hydrochlorothiazide 25 mg tablet RxNorm: 312519 1 Tablet(s) Oral every day 12/21/19 20 2019 Inactive Sudafed 12 Hour 120 mg tablet,extended release RxNorm: 1585503 TAKE (1) TABLET BY MOUTH EVERY 12 HOURS NEEDED 12/21/19 20 2019 Inactive loperamide 2 mg tablet RxNorm: 284028 1 Tablet(s) Oral as needed take one tablet after each loose stool, maximum of 8 tablets in 24 hours 12/11/19 20 2019 Inactive loperamide 2 mg tablet RxNorm: 652989 1 Tablet(s) Oral as needed take one tablet after each loose stool, maximum of 8 tablets in 24 hours 12/11/19 20 2019 Inactive atorvastatin 40 mg tablet RxNorm: 171101 1 Tablet(s) Oral every day 11/29/19 20 2020 Inactive quetiapine 100 mg tablet RxNorm: 660484 1 Tablet(s) Oral every night at bedtime 11/28/19 20 2019 Inactive sertraline 100 mg tablet RxNorm: 286154 1 Tablet(s) Oral 11/28/19 20 2019 Inactive omeprazole 20 mg capsule,delayed release RxNorm: 805126 1 Capsule(s) Oral every day 11/20/19 20 2019 Inactive amoxicillin 250 mg capsule RxNorm: 340482 1 Capsule(s) Oral three times a day 11/07/19 20 2019 Inactive multivitamin with iron-mineral tablet RxNorm: 1 Tablet(s) Oral every day 10/29/19 20 2021 Inactive cetirizine 10 mg tablet RxNorm: 3805661 1 Tablet(s) PO daily 10/20/19 20 2019 Inactive This refill negates all other refills of this medication. Please do not auto refill Singulair 10 mg tablet RxNorm: 115443 1 Tablet(s) PO daily 10/20/19 20 2019 Inactive This refill negates all other refills of this medication gabapentin 300 mg capsule RxNorm: 905316 1 Capsule(s) PO TID 10/20/19 20 2019 Inactive lisinopril 2.5 mg tablet RxNorm: 506097 1 Tablet(s) PO daily 10/20/19 20 2019 Inactive levothyroxine 50 mcg tablet RxNorm: 420579 1 Tablet(s) PO daily 10/20/19 20 2019 Inactive This refill negates all other refills of this medication fenugreek seed extract 500 mg capsule RxNorm: 1 Capsule(s) Oral three times a day 10/17/19 20 2021 Inactive hydrochlorothiazide 25 mg tablet RxNorm: 997218 1 Tablet(s) Oral every day 10/17/19 20 2019 Inactive Alcohol Prep Pads RxNorm: 717290 1 Patch TOP QAM 10/16/192020 Inactive loperamide 2 mg tablet RxNorm: 592438 1 Tablet(s) Oral as needed take one [...] 2019 Inactive hydrochlorothiazide 25 mg tablet RxNorm: 185494 1 Tablet(s) Oral every day 09/19/20 19 2019 Inactive Sudafed 12 Hour 120 mg tablet,extended release RxNorm: 1740399 1 Tablet(s) Oral every 12 hours as needed 09/11/20 19 2018 Inactive omeprazole 20 mg capsule,delayed release RxNorm: 598622 1 Capsule(s) Oral every day 09/07/20 19 2019 Inactive Sudafed 12 Hour 120 mg tablet,extended release RxNorm: 4480116 1 Tablet(s) Oral every 12 hours as needed 09/04/20 19 2018 Inactive pantoprazole 40 mg tablet,delayed release RxNorm: 597004 1 Tablet(s) Oral every day 08/24/20 19 2018 Inactive discontinue any other H2Blkr. and PPI albuterol sulfate 2.5 mg/3 mL (0.083 %) solution for nebulization RxNorm: 922912 1 Vial Inhalation every four hours as needed as needed for dyspnea 08/17/202019 Inactive 60/box. This refill negates all other refills of this medication. Please do not fill early. Please do not auto refill. Symbicort 160 mcg-4.5 mcg/actuation HFA aerosol inhaler RxNorm: 1600640 2 Puff(s) INH BID 08/17/20 No Stop Date Active Alcohol Prep Pads RxNorm: 786379 1 Patch TOP QAM 08/17/20 19 2019 Inactive True Metrix Glucose Test Strip RxNorm: 1 Test Strips Miscellaneous QAM 08/09/20 19 2019 Inactive 100/container Ventolin HFA 90 mcg/actuation aerosol inhaler RxNorm: 634514 2 Puff(s) INH QID 08/09/20 19 2019 Inactive Please do not fill early. Please do not auto refill. This refill negates all other refills of this medication atorvastatin 40 mg tablet RxNorm: 144457 1 Tablet(s) Oral every day 07/04/20 19 2019 Inactive levmetamfetamine 50 mg nasal inhaler RxNorm: 1 Unit(s) NASAL Q3-4H Do not use more than every 3 hours or 8 times/24hours 06/26/20 19 2021 Inactive Please do not auto refill. This refill negates all other refills of this medication diclofenac sodium 75 mg tablet,delayed release RxNorm: 391244 1 Tablet(s) PO BID 06/26/20 19 2019 Inactive This refill negates all other refills of this medication buspirone 7.5 mg tablet RxNorm: 722327 1 Tablet(s) PO BID 06/26/20 19 2020 Inactive This refill negates all other refills of this medication hydrochlorothiazide 12.5 mg tablet RxNorm: 916525 1 Tablet(s) PO QAM 06/26/20 19 2019 Inactive Ventolin HFA 90 mcg/actuation aerosol inhaler RxNorm: 047678 2 Puff(s) INH QID 06/26/20 19 2018 Inactive Please do not fill early. Please do not auto refill. This refill negates all other refills of this medication Singulair 10 mg tablet RxNorm: 103538 1 Tablet(s) PO daily 06/26/20 19 2019 Inactive This refill negates all other refills of this medication cetirizine 10 mg tablet RxNorm: 6037568 1 Tablet(s) PO daily 06/26/20 19 2019 Inactive This refill negates all other refills of this medication. Please do not auto refill levothyroxine 50 mcg tablet RxNorm: 459226 1 Tablet(s) PO daily 06/26/20 19 2019 Inactive This refill negates all other refills of this medication ranitidine 150 mg tablet RxNorm: 542299 1 Tablet(s) PO BID 06/26/20 19 2018 Inactive This refill negates all other refills of this medication Calcium 600-D3 Plus (mag-zinc) 600 mg calcium-800 unit-50 mg tablet RxNorm: 1 Tablet(s) PO daily take an additonal tablet for itching. 06/26/20 19 2018 Inactive This refill negates all other refills of this medication albuterol sulfate 2.5 mg/3 mL (0.083 %) solution for nebulization RxNorm: 236234 1 Vial INH QID 06/26/20 19 2018 Inactive 60/box. This refill negates all other refills of this medication. Please do not fill early. Please do not auto refill. lisinopril 2.5 mg tablet RxNorm: 944145 1 Tablet(s) PO daily 06/21/20 19 2019 Inactive gabapentin 300 mg capsule RxNorm: 046511 1 Capsule(s) PO TID 06/21/20 19 2019 Inactive atorvastatin 20 mg tablet RxNorm: 867246 1 Tablet(s) PO QHS 06/07/20 19 2018 Inactive This refill negates all other refills of this medication TRUEplus Lancets 30 gauge RxNorm: 1 Lancets Miscellaneous QAM 05/29/20 19 2018 Inactive 100/box gabapentin 300 mg capsule RxNorm: 558673 1 Capsule(s) PO TID 05/03/20 19 2018 Inactive Flnickolas Complete (iron) 18 mg iron chewable tablet RxNorm: 1 Tablet(s) PO daily 04/04/20 19 2021 Inactive This refill negates all other refills of this medication gabapentin 300 mg capsule RxNorm: 737440 1 Capsule(s) PO TID as needed 02/01/20 19 2018 Inactive True Metrix Glucose Test Strip RxNorm: 1 Test Strips Miscellaneous QAM 02/01/20 19 2018 Inactive 100/container Alcohol Prep Pads RxNorm: 609610 1 Patch TOP QAM 02/01/20 19 2018 Inactive TRUEplus Lancets 30 gauge RxNorm: 1 Lancets Miscellaneous QAM 02/01/20 19 2018 Inactive 100/box lisinopril 2.5 mg tablet RxNorm: 463058 1 Tablet(s) PO daily 12/28/19 19 2018 Inactive ranitidine 150 mg tablet RxNorm: 991464 1 Tablet(s) PO BID 10/21/19 19 2018 Inactive This refill negates all other refills of this medication albuterol sulfate 2.5 mg/3 mL (0.083 %) solution for nebulization RxNorm: 890506 1 Vial INH QID 10/21/19 19 2018 [...] this medication gabapentin 300 mg capsule RxNorm: 632421 1 Capsule(s) PO TID as needed 10/21/19 19 2018 Inactive atorvastatin 20 mg tablet RxNorm: 663350 1 Tablet(s) PO QHS 10/21/19 19 2018 Inactive This refill negates all other refills of this medication trazodone 50 mg tablet RxNorm: 724232 1 Tablet(s) PO QHS 10/21/192018 Inactive This refill negates all other refills of this medication Ventolin HFA 90 mcg/actuation aerosol inhaler RxNorm: 332481 2 Puff(s) INH QID 10/21/19 19 2018 [...] this medication Singulair 10 mg tablet RxNorm: 660575 1 Tablet(s) PO daily 10/21/192018 Inactive This refill negates all other refills of this medication buspirone 7.5 mg tablet RxNorm: 434191 1 Tablet(s) PO BID 10/21/19 19 2018 Inactive This refill negates all other refills of this medication diclofenac sodium 75 mg tablet,delayed release RxNorm: 733927 1 Tablet(s) PO BID 10/21/19 19 2018 Inactive This refill negates all other refills of this medication hydrochlorothiazide 12.5 mg tablet RxNorm: 681617 1 Tablet(s) PO QAM 10/21/19 19 2018 Inactive metoprolol succinate ER 50 mg tablet,extended release 24 hr RxNorm: 730103 1 Tablet(s) PO daily 10/21/19 19 2018 Inactive This refill negates all other refills of this medication levothyroxine 50 mcg tablet RxNorm: 177917 1 Tablet(s) PO daily 10/21/192018 Inactive This refill negates all other refills of this medication cetirizine 10 mg tablet RxNorm: 9017465 1 Tablet(s) PO daily 10/21/192018 Inactive This refill negates all other refills of this medication. Please do not auto refill Flintstones Complete (iron) 18 mg iron chewable tablet RxNorm: 1 Tablet(s) PO daily 10/21/192018 Inactive This refill negates all other refills of this medication buspirone 7.5 mg tablet RxNorm: 781500 1 Tablet(s) PO BID 10/12/192018 Inactive cetirizine 10 mg tablet RxNorm: 1183841 1 Tablet(s) PO daily 09/28/202018 Inactive Guaiasorb DM 10 mg-100 mg/5 mL oral liquid RxNorm: 323601 10 Milliliter(s) PO As needed every 4 hr 09/24/20 18 2018 Inactive Vicks Vaporub 4.7 %-1.2 %-2.6 % topical ointment RxNorm: 7567522 1 Application TOP TID 09/24/20 18 2018 Inactive levmetamfetamine 50 mg nasal inhaler RxNorm: 1 Unit(s) NASAL Q3-4H 09/24/20 18 2017 Inactive sertraline 50 mg tablet RxNorm: 424942 1 Tablet(s) PO daily 09/09/20 18 2018 Inactive Please note dose trazodone 50 mg tablet RxNorm: 859940 1 Tablet(s) PO QHS 09/06/20 18 2018 Inactive sertraline 50 mg tablet RxNorm: 703533 1 Tablet(s) PO daily 09/06/20 18 2017 Inactive amoxicillin 500 mg tablet RxNorm: 745893 1 Tablet(s) PO Q12H 08/31/20 18 2017 Inactive albuterol sulfate 2.5 mg/3 mL (0.083 %) solution for nebulization RxNorm: 770067 1 Vial INH QID 08/10/20 18 2018 Inactive 60/box. Please do not fill early. Please do not auto refill. Prozac 10 mg capsule RxNorm: 339841 1 Capsule(s) PO daily 08/09/20 18 2017 Inactive buspirone 7.5 mg tablet RxNorm: 740010 1 Tablet(s) PO BID 08/09/20 18 2018 Inactive gabapentin 300 mg capsule RxNorm: 451651 1 Capsule(s) PO TID as needed 08/01/20 18 2018 Inactive hydrochlorothiazide 12.5 mg tablet RxNorm: 314264 1 Tablet(s) PO QAM 08/01/20 18 2018 Inactive ranitidine 150 mg tablet RxNorm: 717562 1 Tablet(s) PO BID 08/01/20 18 2018 Inactive Macrobid 100 mg capsule RxNorm: 096861 1 Capsule(s) PO Q12H 06/21/20 18 2017 Inactive Singulair 10 mg tablet RxNorm: 073168 1 Tablet(s) PO daily 06/14/20 18 2018 Inactive Ventolin HFA 90 mcg/actuation aerosol inhaler RxNorm: 2736515 2 Puff(s) INH QID 06/14/20 18 2018 Inactive Singulair 10 mg tablet RxNorm: 517008 1 Tablet(s) PO daily 06/14/20 18 2017 Inactive buspirone 7.5 mg tablet RxNorm: 321607 1 Tablet(s) PO BID 06/14/20 18 2017 Inactive Prozac 10 mg capsule RxNorm: 201251 1 Capsule(s) PO daily 06/14/20 18 2017 Inactive Neilmed Pediatric Sinus Rinse Refill packet RxNorm: 1 Unit Dose NASAL PRN 05/31/20 18 2021 Inactive diclofenac sodium 75 mg tablet,delayed release RxNorm: 141985 1 Tablet(s) PO BID 05/31/20 18 2017 Inactive lisinopril 2.5 mg tablet RxNorm: 360207 1 Tablet(s) PO daily 05/31/20 18 2017 Inactive metoprolol succinate ER 50 mg tablet,extended release 24 hr RxNorm: 191933 1 Tablet(s) PO daily 05/31/20 18 2017 Inactive levothyroxine 50 mcg tablet RxNorm: 030661 1 Tablet(s) PO daily 05/31/20 18 2017 Inactive TRUEplus Lancets 30 gauge RxNorm: 1 Lancets Miscellaneous QAM 05/31/20 18 2017 Inactive 100/box Ventolin HFA 90 mcg/actuation aerosol inhaler RxNorm: 112687 2 Puff(s) INH QID 05/31/20 18 2017 Inactive Aleve 220 mg capsule RxNorm: 7653993 1 Capsule(s) PO BID 05/31/20 18 2018 Inactive ranitidine 150 mg tablet RxNorm: 646407 1 Tablet(s) PO BID 05/31/20 18 2017 Inactive gabapentin 300 mg capsule RxNorm: 915088 1 Capsule(s) PO TID as needed 05/31/20 18 2017 Inactive atorvastatin 20 mg tablet RxNorm: 256194 1 Tablet(s) PO QHS 05/31/20 18 2017 Inactive True Metrix Glucose Test Strip RxNorm: 1 Test Strips Miscellaneous QAM 05/31/20 18 2017 Inactive 50/container Calcium 600-D3 Plus 600 mg calcium-800 unit-50 mg tablet RxNorm: 1 Tablet(s) PO daily take an additonal tablet for itching. 05/31/20 18 2017 Inactive hydrochlorothiazide 12.5 mg tablet RxNorm: 810145 1 Tablet(s) PO QAM 05/31/20 18 2017 Inactive Flintstones Complete (iron) 18 mg iron chewable tablet RxNorm: 1 Tablet(s) PO daily 05/31/20 18 2017 Inactive d-mannose oral powder RxNorm: PO 18 2021 Inactive True Metrix Glucose Meter RxNorm: miscellaneous 08/17/202018 Inactive sertraline 50 mg tablet RxNorm: 384999 1 Tablet(s) PO daily 11/28/19 20 2019 Inactive loperamide 2 mg tablet RxNorm: 247572 oral 09/29/20 19 2018 Inactive Symbicort 160 mcg-4.5 mcg/actuation HFA aerosol inhaler RxNorm: 9647522 2 Puff(s) INH BID 08/17/202018 Inactive Medication Administered No Medication Administered data Procedures Procedure Codes Date Tobacco Assessment/Screening CPT-4: TCA Fall Risk Assessment [facility] CT: 40150134 4 CPT-4: DFRA01/01/2020Functional AssessmentCPT-4: DFA01/01/2020Semmes Fany AssessmentCPT-4: DSWA11/28/2019Patient Health QuestionnaireCPT-4: DPHQ11/28/2019 [place] Fany AssessmentCPT-4: DSWA10/17/2019HypertensionCPT-4: HTN10/17/2019 [facility]42 CPT-4: DFRA09/19/2019Functional AssessmentCPT-4: DFA111/20/2018Urinalysis, dip stickCPT-4: 6688312Tobacco Assessment/ScreeningCPT-4: TCA05/24/2019 Patient Health QuestionnaireCPT-4: DPHQ08AHA/REBECCA Classification AssessmentCPT-4: DAHA04/25/2019Controlled Substance ReportCPT-4: CTRSU04/25/2019 Urinalysis, dip stickCPT-4: 693482103/28/2019Urinalysis, dip stickCPT-4: 90699 03/28/20191704T3A-AxwdifaumqasxszJYW-7: 42985RsadyilL8K-FunyrtnqkananogGSO-7: [address]: 785108592 CPT-4: R97Pjuzwos Reason For Visit No Reason For Visit data Plan of Care Planned Activity Notes Codes Status Date Referral: Pending Gynecology Referral Informatio n Referral ProcessedReferral: Pending Pulmonology Referral InformationReferralProcessed Referral: Pending Psychiatry Referral InformationReferralInitiatedReferral: Pending Respiratory Services Referral InformationReferralInitiatedReferral: Pending Ophthalmology Referral InformationReferralInitiatedReferral: [facility] WPtel: [address] [place] [address] [address] [address] USWriter placed a call out to the patient to notify her that it has been recommended that she be seenby 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 Patient agreed to be seen, does not have a provider of choice and no transportationissues. Dairy Department Manager faxed referral and clinical notes to [facility] in [place], [place] near the patient's home. Patient to [...] seen and prefers a provider in the [place] or [place] area. Dairy Department Manager placed a call out to everyone listed in the area and the only location that was able to accept the patient's insurance was [address] [address] and spoke with Maylin. Maylin asked that the patient's referral, face sheet and visit notes be faxed to . Dairy Department Manager faxed over requested documents. Patient appointment confirmation letter generated and mailed to her home address. Patient to call to schedule an appointment.ProcessedReferral: [facility] WPtel: [address] [facility] [address] [place], [place] [id number] USPatient notified that it has been advised that she be seen by Neurology. Patient agreed to be seen and prefers to be seen by a provider in the [place], [place] area. Patient denies any concerns with transportation, and prefers to schedule her own appointment. Dairy Department Manager placed a call out to [facility] and spoke with Neeraj Mcfarland: who confirmed that their office is able to acceptnew patients and the patient's insurance. After confirming the providers fax number, short story writer faxed over the patient's referral, [...]
--- OUTSIDE RECORDS SUMMARY | 2023-12-07 02:10 | XMS_ITS | CCD ---
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 [facility] Console Operator Track Name Role Phone Palomo KING, Anna Primary Care Provider Unav ailable Unavailable Chronic Care Management Unavaila ble Summary Purpose DataExchange Insurance Providers Payer name Policy type / Coverage type Covered democrat ID Effective Begin Date Effective End Date [facility] [id number] Unknown Unknown Family history Mother Diagnosis Age [...] 05/31/2018 Education level Unknown Some High School 10th05/31/20185849IrccspvcurLkowjaxMsphfzlyng66/29/2018Tobacco historySNOMED CT: 256143700Ixh never smoked or chewed fqjqzcw7905/31/2018Alcohol historySNOMED CT: 399484547Kutpc drinks wkriuwh7205/31/2018Has the patient ever used illegal drugs? UnknownHas never used illegal drugs05/31/2018DNR Order/ Advanced Directive UnknownFull Code05/31/2018 Allergies, Adverse Reactions, Alerts Substance Reaction Codes Entered Date Inactivated Date Status *No known food allergies Tfvbymg8509/06/2018No Inactive DateActiveMethylprednisolonehivesRxNorm: 6902 09/06/2018No Inactive DateActive Problems [...] malignant neoplasm of cervixICD-10: Z12.4 ICD-9: V76.207/ActiveOther snf (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ICD-10: Z79.899 ICD-9: V58.6907/ActiveChest pain, [...] Fill Instructions levothyroxine 50 mcg tablet RxNorm: 802222 1 Tablet(s) PO daily 01/15/20 20 2019 Inactive lisinopril 2.5 mg tablet RxNorm: 136826 1 Tablet(s) PO daily 01/15/20 20 2020 Inactive gabapentin 300 mg capsule RxNorm: 185445 1 Capsule(s) PO TID 01/15/20 20 2019 Inactive cetirizine 10 mg tablet RxNorm: 0805416 1 Tablet(s) PO daily 01/15/20 20 2019 Inactive Singulair 10 mg tablet RxNorm: 165323 1 Tablet(s) PO daily 01/15/20 20 2020 Inactive gentamicin 0.3 % eye drops RxNorm: 097326 1 Drop(s) ophthalmic (eye) four times a day 12/29/19 20 2019 Inactive gentamicin 0.3 % eye drops RxNorm: 786311 1 Drop(s) ophthalmic (eye) four times a day 12/29/19 20 2019 Inactive gentamicin 0.3 % eye drops RxNorm: 612932 1 Drop(s) ophthalmic (eye) four times a day 12/29/19 20 2019 Inactive hydrochlorothiazide 25 mg tablet RxNorm: 721528 1 Tablet(s) Oral every day 12/21/19 20 2019 Inactive Sudafed 12 Hour 120 mg tablet,extended release RxNorm: 1038118 TAKE (1) TABLET BY MOUTH EVERY 12 HOURS NEEDED 12/21/19 20 2019 Inactive loperamide 2 mg tablet RxNorm: 991437 1 Tablet(s) Oral as needed take one tablet after each loose stool, maximum of 8 tablets in 24 hours 12/11/19 20 2019 Inactive loperamide 2 mg tablet RxNorm: 603184 1 Tablet(s) Oral as needed take one tablet after each loose stool, maximum of 8 tablets in 24 hours 12/11/19 20 2019 Inactive atorvastatin 40 mg tablet RxNorm: 112441 1 Tablet(s) Oral every day 11/29/19 20 2020 Inactive quetiapine 100 mg tablet RxNorm: 968232 1 Tablet(s) Oral every night at bedtime 11/28/19 20 2019 Inactive sertraline 100 mg tablet RxNorm: 472333 1 Tablet(s) Oral 11/28/19 20 2019 Inactive omeprazole 20 mg capsule,delayed release RxNorm: 400643 1 Capsule(s) Oral every day 11/20/19 20 2019 Inactive amoxicillin 250 mg capsule RxNorm: 047678 1 Capsule(s) Oral three times a day 11/07/19 20 2019 Inactive multivitamin with iron-mineral tablet RxNorm: 1 Tablet(s) Oral every day 10/29/19 20 2021 Inactive cetirizine 10 mg tablet RxNorm: 3138901 1 Tablet(s) PO daily 10/20/19 20 2019 Inactive This refill negates all other refills of this medication. Please do not auto refill Singulair 10 mg tablet RxNorm: 518855 1 Tablet(s) PO daily 10/20/19 20 2019 Inactive This refill negates all other refills of this medication gabapentin 300 mg capsule RxNorm: 877718 1 Capsule(s) PO TID 10/20/19 20 2019 Inactive lisinopril 2.5 mg tablet RxNorm: 801041 1 Tablet(s) PO daily 10/20/19 20 2019 Inactive levothyroxine 50 mcg tablet RxNorm: 209066 1 Tablet(s) PO daily 10/20/19 20 2019 Inactive This refill negates all other refills of this medication fenugreek seed extract 500 mg capsule RxNorm: 1 Capsule(s) Oral three times a day 10/17/19 20 2021 Inactive hydrochlorothiazide 25 mg tablet RxNorm: 748364 1 Tablet(s) Oral every day 10/17/19 20 2019 Inactive Alcohol Prep Pads RxNorm: 729701 1 Patch TOP QAM 10/16/192020 Inactive loperamide 2 mg tablet RxNorm: 778056 1 Tablet(s) Oral as needed take one [...] 2019 Inactive hydrochlorothiazide 25 mg tablet RxNorm: 466077 1 Tablet(s) Oral every day 09/19/20 19 2019 Inactive Sudafed 12 Hour 120 mg tablet,extended release RxNorm: 2626665 1 Tablet(s) Oral every 12 hours as needed 09/11/20 19 2018 Inactive omeprazole 20 mg capsule,delayed release RxNorm: 835545 1 Capsule(s) Oral every day 09/07/20 19 2019 Inactive Sudafed 12 Hour 120 mg tablet,extended release RxNorm: 4848772 1 Tablet(s) Oral every 12 hours as needed 09/04/20 19 2018 Inactive pantoprazole 40 mg tablet,delayed release RxNorm: 289542 1 Tablet(s) Oral every day 08/24/20 19 2018 Inactive discontinue any other H2Blkr. and PPI albuterol sulfate 2.5 mg/3 mL (0.083 %) solution for nebulization RxNorm: 207898 1 Vial Inhalation every four hours as needed as needed for dyspnea 08/17/202019 Inactive 60/box. This refill negates all other refills of this medication. Please do not fill early. Please do not auto refill. Symbicort 160 mcg-4.5 mcg/actuation HFA aerosol inhaler RxNorm: 4360563 2 Puff(s) INH BID 08/17/20 No Stop Date Active Alcohol Prep Pads RxNorm: 846920 1 Patch TOP QAM 08/17/20 19 2019 Inactive True Metrix Glucose Test Strip RxNorm: 1 Test Strips Miscellaneous QAM 08/09/20 19 2019 Inactive 100/container Ventolin HFA 90 mcg/actuation aerosol inhaler RxNorm: 570652 2 Puff(s) INH QID 08/09/20 19 2019 Inactive Please do not fill early. Please do not auto refill. This refill negates all other refills of this medication atorvastatin 40 mg tablet RxNorm: 117868 1 Tablet(s) Oral every day 07/04/20 19 2019 Inactive levmetamfetamine 50 mg nasal inhaler RxNorm: 1 Unit(s) NASAL Q3-4H Do not use more than every 3 hours or 8 times/24hours 06/26/20 19 2021 Inactive Please do not auto refill. This refill negates all other refills of this medication diclofenac sodium 75 mg tablet,delayed release RxNorm: 446578 1 Tablet(s) PO BID 06/26/20 19 2019 Inactive This refill negates all other refills of this medication buspirone 7.5 mg tablet RxNorm: 469895 1 Tablet(s) PO BID 06/26/20 19 2020 Inactive This refill negates all other refills of this medication hydrochlorothiazide 12.5 mg tablet RxNorm: 550231 1 Tablet(s) PO QAM 06/26/20 19 2019 Inactive Ventolin HFA 90 mcg/actuation aerosol inhaler RxNorm: 019134 2 Puff(s) INH QID 06/26/20 19 2018 Inactive Please do not fill early. Please do not auto refill. This refill negates all other refills of this medication Singulair 10 mg tablet RxNorm: 338438 1 Tablet(s) PO daily 06/26/20 19 2019 Inactive This refill negates all other refills of this medication cetirizine 10 mg tablet RxNorm: 0343288 1 Tablet(s) PO daily 06/26/20 19 2019 Inactive This refill negates all other refills of this medication. Please do not auto refill levothyroxine 50 mcg tablet RxNorm: 779628 1 Tablet(s) PO daily 06/26/20 19 2019 Inactive This refill negates all other refills of this medication ranitidine 150 mg tablet RxNorm: 635481 1 Tablet(s) PO BID 06/26/20 19 2018 Inactive This refill negates all other refills of this medication Calcium 600-D3 Plus (mag-zinc) 600 mg calcium-800 unit-50 mg tablet RxNorm: 1 Tablet(s) PO daily take an additonal tablet for itching. 06/26/20 19 2018 Inactive This refill negates all other refills of this medication albuterol sulfate 2.5 mg/3 mL (0.083 %) solution for nebulization RxNorm: 355255 1 Vial INH QID 06/26/20 19 2018 Inactive 60/box. This refill negates all other refills of this medication. Please do not fill early. Please do not auto refill. lisinopril 2.5 mg tablet RxNorm: 301006 1 Tablet(s) PO daily 06/21/20 19 2019 Inactive gabapentin 300 mg capsule RxNorm: 893938 1 Capsule(s) PO TID 06/21/20 19 2019 Inactive atorvastatin 20 mg tablet RxNorm: 810223 1 Tablet(s) PO QHS 06/07/20 19 2018 Inactive This refill negates all other refills of this medication TRUEplus Lancets 30 gauge RxNorm: 1 Lancets Miscellaneous QAM 05/29/20 19 2018 Inactive 100/box gabapentin 300 mg capsule RxNorm: 195426 1 Capsule(s) PO TID 05/03/20 19 2018 Inactive Flnickolas Complete (iron) 18 mg iron chewable tablet RxNorm: 1 Tablet(s) PO daily 04/04/20 19 2021 Inactive This refill negates all other refills of this medication gabapentin 300 mg capsule RxNorm: 282355 1 Capsule(s) PO TID as needed 02/01/20 19 2018 Inactive True Metrix Glucose Test Strip RxNorm: 1 Test Strips Miscellaneous QAM 02/01/20 19 2018 Inactive 100/container Alcohol Prep Pads RxNorm: 200806 1 Patch TOP QAM 02/01/20 19 2018 Inactive TRUEplus Lancets 30 gauge RxNorm: 1 Lancets Miscellaneous QAM 02/01/20 19 2018 Inactive 100/box lisinopril 2.5 mg tablet RxNorm: 894986 1 Tablet(s) PO daily 12/28/19 19 2018 Inactive ranitidine 150 mg tablet RxNorm: 135354 1 Tablet(s) PO BID 10/21/19 19 2018 Inactive This refill negates all other refills of this medication albuterol sulfate 2.5 mg/3 mL (0.083 %) solution for nebulization RxNorm: 076592 1 Vial INH QID 10/21/19 19 2018 [...] this medication gabapentin 300 mg capsule RxNorm: 685532 1 Capsule(s) PO TID as needed 10/21/19 19 2018 Inactive atorvastatin 20 mg tablet RxNorm: 952454 1 Tablet(s) PO QHS 10/21/19 19 2018 Inactive This refill negates all other refills of this medication trazodone 50 mg tablet RxNorm: 195129 1 Tablet(s) PO QHS 10/21/192018 Inactive This refill negates all other refills of this medication Ventolin HFA 90 mcg/actuation aerosol inhaler RxNorm: 829544 2 Puff(s) INH QID 10/21/19 19 2018 [...] this medication Singulair 10 mg tablet RxNorm: 655633 1 Tablet(s) PO daily 10/21/192018 Inactive This refill negates all other refills of this medication buspirone 7.5 mg tablet RxNorm: 201953 1 Tablet(s) PO BID 10/21/19 19 2018 Inactive This refill negates all other refills of this medication diclofenac sodium 75 mg tablet,delayed release RxNorm: 897556 1 Tablet(s) PO BID 10/21/19 19 2018 Inactive This refill negates all other refills of this medication hydrochlorothiazide 12.5 mg tablet RxNorm: 066554 1 Tablet(s) PO QAM 10/21/19 19 2018 Inactive metoprolol succinate ER 50 mg tablet,extended release 24 hr RxNorm: 543102 1 Tablet(s) PO daily 10/21/19 19 2018 Inactive This refill negates all other refills of this medication levothyroxine 50 mcg tablet RxNorm: 491456 1 Tablet(s) PO daily 10/21/192018 Inactive This refill negates all other refills of this medication cetirizine 10 mg tablet RxNorm: 3339990 1 Tablet(s) PO daily 10/21/192018 Inactive This refill negates all other refills of this medication. Please do not auto refill Flintstones Complete (iron) 18 mg iron chewable tablet RxNorm: 1 Tablet(s) PO daily 10/21/192018 Inactive This refill negates all other refills of this medication buspirone 7.5 mg tablet RxNorm: 328803 1 Tablet(s) PO BID 10/12/192018 Inactive cetirizine 10 mg tablet RxNorm: 4715096 1 Tablet(s) PO daily 09/28/202018 Inactive Guaiasorb DM 10 mg-100 mg/5 mL oral liquid RxNorm: 922472 10 Milliliter(s) PO As needed every 4 hr 09/24/20 18 2018 Inactive Vicks Vaporub 4.7 %-1.2 %-2.6 % topical ointment RxNorm: 5754388 1 Application TOP TID 09/24/20 18 2018 Inactive levmetamfetamine 50 mg nasal inhaler RxNorm: 1 Unit(s) NASAL Q3-4H 09/24/20 18 2017 Inactive sertraline 50 mg tablet RxNorm: 763545 1 Tablet(s) PO daily 09/09/20 18 2018 Inactive Please note dose trazodone 50 mg tablet RxNorm: 137763 1 Tablet(s) PO QHS 09/06/20 18 2018 Inactive sertraline 50 mg tablet RxNorm: 685016 1 Tablet(s) PO daily 09/06/20 18 2017 Inactive amoxicillin 500 mg tablet RxNorm: 414297 1 Tablet(s) PO Q12H 08/31/20 18 2017 Inactive albuterol sulfate 2.5 mg/3 mL (0.083 %) solution for nebulization RxNorm: 848468 1 Vial INH QID 08/10/20 18 2018 Inactive 60/box. Please do not fill early. Please do not auto refill. Prozac 10 mg capsule RxNorm: 976016 1 Capsule(s) PO daily 08/09/20 18 2017 Inactive buspirone 7.5 mg tablet RxNorm: 328072 1 Tablet(s) PO BID 08/09/20 18 2018 Inactive gabapentin 300 mg capsule RxNorm: 185098 1 Capsule(s) PO TID as needed 08/01/20 18 2018 Inactive hydrochlorothiazide 12.5 mg tablet RxNorm: 963824 1 Tablet(s) PO QAM 08/01/20 18 2018 Inactive ranitidine 150 mg tablet RxNorm: 676585 1 Tablet(s) PO BID 08/01/20 18 2018 Inactive Macrobid 100 mg capsule RxNorm: 058236 1 Capsule(s) PO Q12H 06/21/20 18 2017 Inactive Singulair 10 mg tablet RxNorm: 367062 1 Tablet(s) PO daily 06/14/20 18 2018 Inactive Ventolin HFA 90 mcg/actuation aerosol inhaler RxNorm: 8693926 2 Puff(s) INH QID 06/14/20 18 2018 Inactive Singulair 10 mg tablet RxNorm: 348098 1 Tablet(s) PO daily 06/14/20 18 2017 Inactive buspirone 7.5 mg tablet RxNorm: 040628 1 Tablet(s) PO BID 06/14/20 18 2017 Inactive Prozac 10 mg capsule RxNorm: 002990 1 Capsule(s) PO daily 06/14/20 18 2017 Inactive Neilmed Pediatric Sinus Rinse Refill packet RxNorm: 1 Unit Dose NASAL PRN 05/31/20 18 2021 Inactive diclofenac sodium 75 mg tablet,delayed release RxNorm: 361645 1 Tablet(s) PO BID 05/31/20 18 2017 Inactive lisinopril 2.5 mg tablet RxNorm: 233159 1 Tablet(s) PO daily 05/31/20 18 2017 Inactive metoprolol succinate ER 50 mg tablet,extended release 24 hr RxNorm: 012559 1 Tablet(s) PO daily 05/31/20 18 2017 Inactive levothyroxine 50 mcg tablet RxNorm: 478563 1 Tablet(s) PO daily 05/31/20 18 2017 Inactive TRUEplus Lancets 30 gauge RxNorm: 1 Lancets Miscellaneous QAM 05/31/20 18 2017 Inactive 100/box Ventolin HFA 90 mcg/actuation aerosol inhaler RxNorm: 038673 2 Puff(s) INH QID 05/31/20 18 2017 Inactive Aleve 220 mg capsule RxNorm: 7969317 1 Capsule(s) PO BID 05/31/20 18 2018 Inactive ranitidine 150 mg tablet RxNorm: 971690 1 Tablet(s) PO BID 05/31/20 18 2017 Inactive gabapentin 300 mg capsule RxNorm: 331237 1 Capsule(s) PO TID as needed 05/31/20 18 2017 Inactive atorvastatin 20 mg tablet RxNorm: 644557 1 Tablet(s) PO QHS 05/31/20 18 2017 Inactive True Metrix Glucose Test Strip RxNorm: 1 Test Strips Miscellaneous QAM 05/31/20 18 2017 Inactive 50/container Calcium 600-D3 Plus 600 mg calcium-800 unit-50 mg tablet RxNorm: 1 Tablet(s) PO daily take an additonal tablet for itching. 05/31/20 18 2017 Inactive hydrochlorothiazide 12.5 mg tablet RxNorm: 991049 1 Tablet(s) PO QAM 05/31/20 18 2017 Inactive Flintstones Complete (iron) 18 mg iron chewable tablet RxNorm: 1 Tablet(s) PO daily 05/31/20 18 2017 Inactive d-mannose oral powder RxNorm: PO 18 2021 Inactive True Metrix Glucose Meter RxNorm: miscellaneous 08/17/202018 Inactive sertraline 50 mg tablet RxNorm: 169618 1 Tablet(s) PO daily 11/28/19 20 2019 Inactive loperamide 2 mg tablet RxNorm: 381983 oral 09/29/20 19 2018 Inactive Symbicort 160 mcg-4.5 mcg/actuation HFA aerosol inhaler RxNorm: 8039848 2 Puff(s) INH BID 08/17/202018 Inactive Medication Administered No Medication Administered data Procedures Procedure Codes Date Tobacco Assessment/Screening CPT-4: TCA Fall Risk Assessment [facility] CT: 55176288 4 CPT-4: DFRA01/01/2020Functional AssessmentCPT-4: DFA01/01/2020[place] Fany AssessmentCPT-4: DSWA11/28/2019Patient Health QuestionnaireCPT-4: DPHQ11/28/2019 [place] Fany AssessmentCPT-4: DSWA10/17/2019HypertensionCPT-4: HTN10/17/2019 [facility] CPT-4: DFRA09/19/2019Functional AssessmentCPT-4: DFA111/20/2018Urinalysis, dip stickCPT-4: 1995081Tobacco Assessment/ScreeningCPT-4: TCA05/24/2019 Patient Health QuestionnaireCPT-4: DPHQ08AHA/REBECCA Classification AssessmentCPT-4: DAHA04/25/2019Controlled Substance ReportCPT-4: CTRSU04/25/2019 Urinalysis, dip stickCPT-4: 232493503/28/2019Urinalysis, dip stickCPT-4: 94889 03/28/20193373N6Y-RzndbdxkfhmukfcOVF-5: 25140LrgmchjJ6Y-NoblhhvzidrkwnsLEP-1: [address]: 915614542 CPT-4: M57Aknmdim Reason For Visit No Reason For Visit data Plan of Care Planned Activity Notes Codes Status Date Referral: Pending Gynecology Referral Informatio n Referral ProcessedReferral: Pending Pulmonology Referral InformationReferralProcessed Referral: Pending Psychiatry Referral InformationReferralInitiatedReferral: Pending Respiratory Services Referral InformationReferralInitiatedReferral: Pending Ophthalmology Referral InformationReferralInitiatedReferral: [facility] WPtel: [address] [place] [address] [address] [address] USWriter placed a call out to the patient to notify her that it has been recommended that she be seenby 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 Patient agreed to be seen, does not have a provider of choice and no transportationissues. Distribution Field Engineer faxed referral and clinical notes to [facility] in [place], [place] near the patient's home. Patient to [...] seen and prefers a provider in the [place] or [place] area. Distribution Field Engineer placed a call out to everyone listed in the area and the only location that was able to accept the patient's insurance was [address] [phone] and spoke with Maylin. Maylin asked that the patient's referral, face sheet and visit notes be faxed to . Distribution Field Engineer faxed over requested documents. Patient appointment confirmation letter generated and mailed to her home address. Patient to call to schedule an appointment.ProcessedReferral: [facility] WPtel: [address] [facility] [address] [place], [place] [id number] USPatient notified that it has been advised that she be seen by Neurology. Patient agreed to be seen and prefers to be seen by a provider in the [place], [place] area. Patient denies any concerns with transportation, and prefers to schedule her own appointment. Distribution Field Engineer placed a call out to [facility] and spoke with Neeraj Mcfarland: [...]
--- OUTSIDE RECORDS SUMMARY | 2023-12-07 02:10 | XMS_ITS | CCD ---
Author Name Leena Culver NP Address [address] [place] [address] [place] [address] Phone Organization [facility] Phone Care Team Providers Care Physical Education Aide Name Role Phone Anna Culver NP Primary Care Provider Unav ailable Unavailable Chronic Care Management Unavaila ble Summary Purpose DataExchange Insurance Providers Payer name Policy type / Coverage type Covered green party ID Effective Begin Date Effective End Date SUKI MAYO [id number] Unknown Unknown Family history Mother Diagnosis Age [...] 05/31/2018 Education level Unknown Some High School 10th05/31/20186888WnzceeviwqKsetjqlOyrgteecdx74/29/2018Tobacco historySNOMED CT: 462555719Ltn never smoked or chewed tblsegh6505/31/2018Alcohol historySNOMED CT: 341125348Hxtdl drinks ktvgrij2105/31/2018Has the patient ever used illegal drugs? UnknownHas never used illegal drugs05/31/2018DNR Order/ Advanced Directive UnknownFull Code05/31/2018 Allergies, Adverse Reactions, Alerts Substance Reaction Codes Entered Date Inactivated Date Status *No known food allergies Hpmnzqg5109/06/2018No Inactive DateActiveMethylprednisolonehivesRxNorm: 6902 09/06/2018No Inactive DateActive Problems Condition Codes Effective Dates Condition St atus Encounter for screening for tobacco use ICD-10: Z01.89 ICD-9: V72.8503ActiveEssential (primary) hypertensionICD-10: I10 ICD-9: 401.901/10/2018ActivePink eyeICD-10: H10.029 ICD-9: 372.0303ActiveSyncope and collapseICD-10: R55 [...] ICD-9: 272.408/ActiveApnea, not elsewhere classifiedICD-10: R06.81 ICD-9: 786.0305ActiveEncounter for immunizationICD-10: Z23 ICD-9: V03.907/ActiveEncounter for screening, unspecifiedICD-10: Z13.9 ICD-9: V82.912ActivePolyneuropathy, unspecifiedICD-10: G62.9 ICD-9: 356.908/ActivePatient Not SeenICD-10: UXZ.01 ICD-9: XZ0.107/ActiveEncounter for screening for malignant neoplasm of cervixICD-10: Z12.4 ICD-9: V76.207/ActiveOther [facility] (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ICD-10: Z79.899 ICD-9: V58.6907/ActiveChest pain, [...] Instructions gentamicin 0.3 % eye drops RxNorm: 154059 1 Drop(s) ophthalmic (eye) four times a day 12/29/19 20 2019 Inactive gentamicin 0.3 % eye drops RxNorm: 715443 1 Drop(s) ophthalmic (eye) four times a day 12/29/19 20 2019 Inactive gentamicin 0.3 % eye drops RxNorm: 621854 1 Drop(s) ophthalmic (eye) four times a day 12/29/19 20 2019 Inactive hydrochlorothiazide 25 mg tablet RxNorm: 695757 1 Tablet(s) Oral every day 12/21/19 20 2019 Inactive Sudafed 12 Hour 120 mg tablet,extended release RxNorm: 7796176 TAKE (1) TABLET BY MOUTH EVERY 12 HOURS NEEDED 12/21/19 20 2019 Inactive loperamide 2 mg tablet RxNorm: 527573 1 Tablet(s) Oral as needed take one tablet after each loose stool, maximum of 8 tablets in 24 hours 12/11/19 20 2019 Inactive loperamide 2 mg tablet RxNorm: 585973 1 Tablet(s) Oral as needed take one tablet after each loose stool, maximum of 8 tablets in 24 hours 12/11/19 20 2019 Inactive atorvastatin 40 mg tablet RxNorm: 072081 1 Tablet(s) Oral every day 11/29/19 20 2020 Inactive quetiapine 100 mg tablet RxNorm: 456603 1 Tablet(s) Oral every night at bedtime 11/28/19 20 2019 Inactive sertraline 100 mg tablet RxNorm: 815198 1 Tablet(s) Oral 11/28/19 20 2019 Inactive omeprazole 20 mg capsule,delayed release RxNorm: 412189 1 Capsule(s) Oral every day 11/20/19 20 2019 Inactive amoxicillin 250 mg capsule RxNorm: 883783 1 Capsule(s) Oral three times a day 11/07/19 20 2019 Inactive multivitamin with iron-mineral tablet RxNorm: 1 Tablet(s) Oral every day 10/29/19 20 2021 Inactive cetirizine 10 mg tablet RxNorm: 9342296 1 Tablet(s) PO daily 10/20/19 20 2019 Inactive This refill negates all other refills of this medication. Please do not auto refill Singulair 10 mg tablet RxNorm: 879057 1 Tablet(s) PO daily 10/20/19 20 2019 Inactive This refill negates all other refills of this medication gabapentin 300 mg capsule RxNorm: 415409 1 Capsule(s) PO TID 10/20/19 20 2019 Inactive lisinopril 2.5 mg tablet RxNorm: 288427 1 Tablet(s) PO daily 10/20/192019 Inactive levothyroxine 50 mcg tablet RxNorm: 467537 1 Tablet(s) PO daily 10/20/192019 Inactive This refill negates all other refills of this medication fenugreek seed extract 500 mg capsule RxNorm: 1 Capsule(s) Oral three times a day 10/17/192021 Inactive hydrochlorothiazide 25 mg tablet RxNorm: 282483 1 Tablet(s) Oral every day 10/17/19 20 2019 Inactive Alcohol Prep Pads RxNorm: 026687 1 Patch TOP QAM 10/16/19 20 2020 Inactive loperamide 2 mg tablet RxNorm: 700472 1 Tablet(s) Oral as needed take one [...] 2019 Inactive hydrochlorothiazide 25 mg tablet RxNorm: 273656 1 Tablet(s) Oral every day 09/19/20 19 2019 Inactive Sudafed 12 Hour 120 mg tablet,extended release RxNorm: 9402957 1 Tablet(s) Oral every 12 hours as needed 09/11/20 19 2018 Inactive omeprazole 20 mg capsule,delayed release RxNorm: 971243 1 Capsule(s) Oral every day 09/07/20 19 2019 Inactive Sudafed 12 Hour 120 mg tablet,extended release RxNorm: 2369448 1 Tablet(s) Oral every 12 hours as needed 09/04/20 19 2018 Inactive pantoprazole 40 mg tablet,delayed release RxNorm: 581604 1 Tablet(s) Oral every day 08/24/20 19 2018 Inactive discontinue any other H2Blkr. and PPI albuterol sulfate 2.5 mg/3 mL (0.083 %) solution for nebulization RxNorm: 528234 1 Vial Inhalation every four hours as needed as needed for dyspnea 08/17/20 19 2019 Inactive 60/box. This refill negates all other refills of this medication. Please do not fill early. Please do not auto refill. Symbicort 160 mcg-4.5 mcg/actuation HFA aerosol inhaler RxNorm: 7466201 2 Puff(s) INH BID 08/17/20 19 No Stop Date Active Alcohol Prep Pads RxNorm: 270368 1 Patch TOP QAM 08/17/20 19 2019 Inactive True Metrix Glucose Test Strip RxNorm: 1 Test Strips Miscellaneous QAM 08/09/20 19 2019 Inactive 100/container Ventolin HFA 90 mcg/actuation aerosol inhaler RxNorm: 863521 2 Puff(s) INH QID 08/09/20 19 2019 Inactive Please do not fill early. Please do not auto refill. This refill negates all other refills of this medication atorvastatin 40 mg tablet RxNorm: 705695 1 Tablet(s) Oral every day 07/04/20 19 2019 Inactive levmetamfetamine 50 mg nasal inhaler RxNorm: 1 Unit(s) NASAL Q3-4H Do not use more than every 3 hours or 8 times/24hours 06/26/20 19 2021 Inactive Please do not auto refill. This refill negates all other refills of this medication diclofenac sodium 75 mg tablet,delayed release RxNorm: 976646 1 Tablet(s) PO BID 06/26/20 19 2019 Inactive This refill negates all other refills of this medication buspirone 7.5 mg tablet RxNorm: 982693 1 Tablet(s) PO BID 06/26/20 19 2020 Inactive This refill negates all other refills of this medication hydrochlorothiazide 12.5 mg tablet RxNorm: 441773 1 Tablet(s) PO QAM 06/26/20 19 2019 Inactive Ventolin HFA 90 mcg/actuation aerosol inhaler RxNorm: 000392 2 Puff(s) INH QID 06/26/20 19 2018 Inactive Please do not fill early. Please do not auto refill. This refill negates all other refills of this medication Singulair 10 mg tablet RxNorm: 919100 1 Tablet(s) PO daily 06/26/20 19 2019 Inactive This refill negates all other refills of this medication cetirizine 10 mg tablet RxNorm: 1827651 1 Tablet(s) PO daily 06/26/20 19 2019 Inactive This refill negates all other refills of this medication. Please do not auto refill levothyroxine 50 mcg tablet RxNorm: 450232 1 Tablet(s) PO daily 06/26/20 19 2019 Inactive This refill negates all other refills of this medication ranitidine 150 mg tablet RxNorm: 863217 1 Tablet(s) PO BID 06/26/20 19 2018 Inactive This refill negates all other refills of this medication Calcium 600-D3 Plus (mag-zinc) 600 mg calcium-800 unit-50 mg tablet RxNorm: 1 Tablet(s) PO daily take an additonal tablet for itching. 06/26/20 19 2018 Inactive This refill negates all other refills of this medication albuterol sulfate 2.5 mg/3 mL (0.083 %) solution for nebulization RxNorm: 122021 1 Vial INH QID 06/26/20 19 2018 Inactive 60/box. This refill negates all other refills of this medication. Please do not fill early. Please do not auto refill. lisinopril 2.5 mg tablet RxNorm: 703367 1 Tablet(s) PO daily 06/21/20 19 2019 Inactive gabapentin 300 mg capsule RxNorm: 413511 1 Capsule(s) PO TID 06/21/20 19 2019 Inactive atorvastatin 20 mg tablet RxNorm: 960591 1 Tablet(s) PO QHS 06/07/20 19 2018 Inactive This refill negates all other refills of this medication TRUEplus Lancets 30 gauge RxNorm: 1 Lancets Miscellaneous QAM 05/29/20 19 2018 Inactive 100/box gabapentin 300 mg capsule RxNorm: 433575 1 Capsule(s) PO TID 05/03/20 19 2018 Inactive Flintstones Complete (iron) 18 mg iron chewable tablet RxNorm: 1 Tablet(s) PO daily 04/04/20 19 2021 Inactive This refill negates all other refills of this medication gabapentin 300 mg capsule RxNorm: 812381 1 Capsule(s) PO TID as needed 02/01/20 19 2018 Inactive True Metrix Glucose Test Strip RxNorm: 1 Test Strips Miscellaneous QAM 02/01/20 19 2018 Inactive 100/container Alcohol Prep Pads RxNorm: 650391 1 Patch TOP QA 02/01/202018 Inactive TRUEplus Lancets 30 gauge RxNorm: 1 Lancets Miscellaneous QAM 02/01/20 19 2018 Inactive 100/box lisinopril 2.5 mg tablet RxNorm: 364001 1 Tablet(s) PO daily 12/28/19 19 2018 Inactive ranitidine 150 mg tablet RxNorm: 354188 1 Tablet(s) PO BID 10/21/19 19 2018 Inactive This refill negates all other refills of this medication albuterol sulfate 2.5 mg/3 mL (0.083 %) solution for nebulization RxNorm: 278012 1 Vial INH QID 10/21/19 19 2018 [...] this medication gabapentin 300 mg capsule RxNorm: 480785 1 Capsule(s) PO TID as needed 10/21/19 19 2018 Inactive atorvastatin 20 mg tablet RxNorm: 869225 1 Tablet(s) PO QHS 10/21/19 19 2018 Inactive This refill negates all other refills of this medication trazodone 50 mg tablet RxNorm: 429817 1 Tablet(s) PO QHS 10/21/192018 Inactive This refill negates all other refills of this medication Ventolin HFA 90 mcg/actuation aerosol inhaler RxNorm: 755806 2 Puff(s) INH QID 10/21/19 19 2018 Inactive Please do not fill early. Please do not auto refill. This refill negates all other refills of this medication Calcium 600-D3 Plus 600 mg calcium-800 unit-50 mg tablet RxNorm: 1 Tablet(s) PO daily take an additonal tablet for itching. 10/21/192018 Inactive This refill negates all other refills of this medication Singulair 10 mg tablet RxNorm: 100780 1 Tablet(s) PO daily 10/21/192018 Inactive This refill negates all other refills of this medication buspirone 7.5 mg tablet RxNorm: 457132 1 Tablet(s) PO BID 10/21/192018 Inactive This refill negates all other refills of this medication diclofenac sodium 75 mg tablet,delayed release RxNorm: 854430 1 Tablet(s) PO BID 10/21/19 19 2018 Inactive This refill negates all other refills of this medication hydrochlorothiazide 12.5 mg tablet RxNorm: 728182 1 Tablet(s) PO QAM 10/21/19 19 2018 Inactive metoprolol succinate ER 50 mg tablet,extended release 24 hr RxNorm: 090258 1 Tablet(s) PO daily 10/21/19 19 2018 Inactive This refill negates all other refills of this medication levothyroxine 50 mcg tablet RxNorm: 746082 1 Tablet(s) PO daily 10/21/19 19 2018 Inactive This refill negates all other refills of this medication cetirizine 10 mg tablet RxNorm: 0147513 1 Tablet(s) PO daily 10/21/192018 Inactive This refill negates all other refills of this medication. Please do not auto refill Flintstones Complete (iron) 18 mg iron chewable tablet RxNorm: 1 Tablet(s) PO daily 10/21/19 19 2018 Inactive This refill negates all other refills of this medication buspirone 7.5 mg tablet RxNorm: 116100 1 Tablet(s) PO BID 10/12/19 19 2018 Inactive cetirizine 10 mg tablet RxNorm: 3617955 1 Tablet(s) PO daily 09/28/20 18 2018 Inactive Guaiasorb DM 10 mg-100 mg/5 mL oral liquid RxNorm: 114971 10 Milliliter(s) PO As needed every 4 hr 09/24/20 18 2018 Inactive Vicks Vaporub 4.7 %-1.2 %-2.6 % topical ointment RxNorm: 8959653 1 Application TOP TID 09/24/20 18 2018 Inactive levmetamfetamine 50 mg nasal inhaler RxNorm: 1 Unit(s) NASAL Q3-4H 09/24/20 18 2017 Inactive sertraline 50 mg tablet RxNorm: 924535 1 Tablet(s) PO daily 09/09/20 18 2018 Inactive Please note dose trazodone 50 mg tablet RxNorm: 860240 1 Tablet(s) PO QHS 09/06/20 18 2018 Inactive sertraline 50 mg tablet RxNorm: 896835 1 Tablet(s) PO daily 09/06/20 18 2017 Inactive amoxicillin 500 mg tablet RxNorm: 137964 1 Tablet(s) PO Q12H 08/31/20 18 2017 Inactive albuterol sulfate 2.5 mg/3 mL (0.083 %) solution for nebulization RxNorm: 472774 1 Vial INH QID 08/10/20 18 2018 Inactive 60/box. Please do not fill early. Please do not auto refill. Prozac 10 mg capsule RxNorm: 137805 1 Capsule(s) PO daily 08/09/20 18 2017 Inactive buspirone 7.5 mg tablet RxNorm: 741482 1 Tablet(s) PO BID 08/09/20 18 2018 Inactive gabapentin 300 mg capsule RxNorm: 247881 1 Capsule(s) PO TID as needed 08/01/20 18 2018 Inactive hydrochlorothiazide 12.5 mg tablet RxNorm: 274386 1 Tablet(s) PO QAM 08/01/20 18 2018 Inactive ranitidine 150 mg tablet RxNorm: 168065 1 Tablet(s) PO BID 08/01/20 18 2018 Inactive Macrobid 100 mg capsule RxNorm: 557662 1 Capsule(s) PO Q12H 06/21/20 18 2017 Inactive Singulair 10 mg tablet RxNorm: 059453 1 Tablet(s) PO daily 06/14/20 18 2018 Inactive Ventolin HFA 90 mcg/actuation aerosol inhaler RxNorm: 5173537 2 Puff(s) INH QID 06/14/20 18 2018 Inactive Singulair 10 mg tablet RxNorm: 943772 1 Tablet(s) PO daily 06/14/20 18 2017 Inactive buspirone 7.5 mg tablet RxNorm: 669853 1 Tablet(s) PO BID 06/14/20 18 2017 Inactive Prozac 10 mg capsule RxNorm: 087370 1 Capsule(s) PO daily 06/14/20 18 2017 Inactive Neilmed Pediatric Sinus Rinse Refill packet RxNorm: 1 Unit Dose NASAL PRN 05/31/20 18 2021 Inactive diclofenac sodium 75 mg tablet,delayed release RxNorm: 226703 1 Tablet(s) PO BID 05/31/20 18 2017 Inactive lisinopril 2.5 mg tablet RxNorm: 291558 1 Tablet(s) PO daily 05/31/20 18 2017 Inactive metoprolol succinate ER 50 mg tablet,extended release 24 hr RxNorm: 803555 1 Tablet(s) PO daily 05/31/20 18 2017 Inactive levothyroxine 50 mcg tablet RxNorm: 119271 1 Tablet(s) PO daily 05/31/20 18 2017 Inactive TRUEplus Lancets 30 gauge RxNorm: 1 Lancets Miscellaneous QAM 05/31/20 18 2017 Inactive 100/box Ventolin HFA 90 mcg/actuation aerosol inhaler RxNorm: 944766 2 Puff(s) INH QID 05/31/20 18 2017 Inactive Aleve 220 mg capsule RxNorm: 7214938 1 Capsule(s) PO BID 05/31/20 18 2018 Inactive ranitidine 150 mg tablet RxNorm: 381429 1 Tablet(s) PO BID 05/31/20 18 2017 Inactive gabapentin 300 mg capsule RxNorm: 121141 1 Capsule(s) PO TID as needed 05/31/20 18 2017 Inactive atorvastatin 20 mg tablet RxNorm: 437934 1 Tablet(s) PO QHS 05/31/20 18 2017 Inactive True Metrix Glucose Test Strip RxNorm: 1 Test Strips Miscellaneous QAM 05/31/20 18 2017 Inactive 50/container Calcium 600-D3 Plus 600 mg calcium-800 unit-50 mg tablet RxNorm: 1 Tablet(s) PO daily take an additonal tablet for itching. 05/31/20 18 2017 Inactive hydrochlorothiazide 12.5 mg tablet RxNorm: 755090 1 Tablet(s) PO QAM 05/31/20 18 2017 Inactive Flintstones Complete (iron) 18 mg iron chewable tablet RxNorm: 1 Tablet(s) PO daily 05/31/20 18 2017 Inactive d-mannose oral powder RxNorm: PO 18 2021 Inactive True Metrix Glucose Meter RxNorm: miscellaneous 08/17/20 19 2018 Inactive sertraline 50 mg tablet RxNorm: 168776 1 Tablet(s) PO daily 11/28/19 20 2019 Inactive loperamide 2 mg tablet RxNorm: 038832 oral 09/29/20 19 2018 Inactive Symbicort 160 mcg-4.5 mcg/actuation HFA aerosol inhaler RxNorm: 5567385 2 Puff(s) INH BID 08/17/202018 Inactive Medication Administered No Medication Administered data Procedures Procedure Codes Date Tobacco Assessment/Screening CPT-4: TCA Fall Risk Assessment SNOMED CT: 78763652 4 CPT-4: DF01/01/2020Functional AssessmentCPT-4: DF01/01/2020Tobacco Assessment/Screening Tobacco Use/Never used tobaccoCPT-4: SDXCwfpkvh33/31/2020Fall Risk Assessment Two or more falls in the past year?/No, Has there been a fall with injury in the last year?/No, Plan:/Monitor gait and balance PRN, no current action needed SNOMED CT: 987836727 CPT-4: BDWSKeczcvf72/31/2020Functional Assessment ADLs - Patient needs direct assistance, cuing, or supervision, to perform the following safely:/*Noassistance, cuing, or supervision needed, IADLs - Patient needs direct assistance, cuing, or supervision, to perform the following safely:/managing finances, IADLs - Patient needs direct assistance, cuing, or supervision, to perform the following safely:/taking medications, IADLs - Patient needs direct assistance, cuing, or supervision, to perform the following safely:/transportationCPT-4: CPDZonheqw22/31/2020[place] Fany Assessment CPT-4: DSWA11/28/2019Patient Health QuestionnaireCPT-4: DPHQ11/28/2019[place] Fany AssessmentCPT-4: DS10/17/2019HypertensionCPT-4: HTN10/17/2019Fall Risk AssessmentSNOMED CT: 162360205 CPT-4: DFRA09/19/2019Functional AssessmentCPT-4: DFA111/20/2018Urinalysis, dip stickCPT-4: 5939333Tobacco Assessment/ScreeningCPT-4: TCA05/24/2019 Patient Health QuestionnaireCPT-4: DPHQ05/24/2019AHA/REBECCA Classification AssessmentCPT-4: DAHA04/25/2019Controlled Substance ReportCPT-4: CTRSU04/25/2019 Urinalysis, dip stickCPT-4: 484918803/28/2019Urinalysis, dip stickCPT-4: 18365 03/28/20194620C5N-LkvnyyosfsftawnHLJ-4: 96136UwxvmzgZ6W-KvpglwficoaibicPPV-3: [address]: 320152741 CPT-4: S41Jihcbez Vital Signs Date Vital 01/01/2020 Random Blood Sugar: 171/NaN Reason For Visit Reason For Visit Effective Dates Notes hypertension 01/01/2020 diabetes mellitus 01/01/2020 Interim health update 01/01/2020 Encounters Encounter Performer Location Location Address Codes Magdi e ([id number]) (EST PT) [facility] [place] FOCUSED TELEHEALTH VISIT Diagnosis: Type 2 diabetes mellitus with peripheral neuropathy[ICD10: E11.42] Diagnosis: Essential (primary) hypertension[ICD10: I10] Diagnosis: Harrell eye[ICD10: H10.029] Diagnosis: Syncope and collapse[ICD10: R55] Diagnosis: Encounter for screening for tobacco use[ICD10: Z01.89]Anna Bourgeois [address] [place] [address] [place] [address] CPT-4: 9145142 Plan of Care Planned Activity Notes Codes Status Date Visit Plan: patient with I phone able to participate in visual and audio telehealth visit H10.029-372.03 Harrell eye ophthalmic ointment received today advised to avoid touches her face or eyes and need to wash hands frequently Z01.89-V72.85 Encounter for screening for tobacco use Tobacco screen complete-patient denies ever smoking R55-780.2 Syncope and collapse Patient reporting episodes where she feels lightheaded, worse when she exerts herself advise to check BS when feeling light headed N18.9-585.9 Chronic kidney disease, unspecified avoid nephro toxic drugs, 07/04/2019 BUN 17 creatinine 0.7 GFR 93 Patient denies ability to drink water stating that it dehydrates her- doesn't know diagnosis,but indicates she was told this by previous urologist Will refer to urology had appointment 10/25/2019 I10-401.9 Essential (primary) hypertension I11.0-402.91 Hypertensive heart disease with heart failure cont hctz 10/17/2019 HTN assessment, encourage lifestyle modifications, exercise, weight loss, and limiting fried and greasy foods, 10/17/2019 GFR 90 E03.9-244.9 Hypothyroidism, unspecified cont levothyroxine N39.46-788.33 Mixed incontinence use of incontinence supplies E11.42-250.60 Type 2 diabetes mellitus with peripheral neuropathy fluctuating blood sugars, BS 171 ate about an hour ago [id number] tests one time a day-advised to test at varied times throughout the day-BS log left with patient 10/17/2019 Hemoglobin A1C 6.0 07/04/2019 Hgb A1C 5.6 10/17/2019 [place] Fany 7/10-instructed on good daily foot care Note callous formation to bilateral heels-instruct on application of lotion to feet routine follow up with , podiatry-diabetic shoe paperwork received, will mail when signed by MD routine podiatry ophthalmology referral initiated 01/01/2020 FRA complete denies fall 01/01/2020 Functional Assessment complete G47.33-327.23 Obstructive sleep apnea (adult) (pediatric) J45.909-493.90 Asthma Recent ED visit for difficulty breathing-records requested continue inhalers and nebulizer wears cpap every night, believes that is helpful 10/22/2019 Dr. 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 t o visit to discuss portion control Advised to avoid soda and sweet tea-discuss Ice, carbonated drink as a substitute 03/31/2020Patient Education: Patient Medication IlasfqgPbrhgvmoz56/31/2020 Patient Education: QmdoheesTbivwfyrm59/31/2020Patient Education: Hypertension Podkxvlqu73/31/2020Appointment: Anna Culver WPtel: [address] [address] [id number]: Anna Culver WPtel: [address] [place] [address] [id number]: Anna Culver WPtel: [address] [place] [address] [id number]: Sudha Hernadez WPtel: [address] [place] [address] [id number]: Sudha Hernadez WPtel: [address] [facility] [id number]: Charlene Oropeza WPtel: [address] [facility] [id number]: Enedelia Delgado45Appointment: Charlene Oropeza WPtel: [address] [facility] [id number]: Rasta Palafox WPtel: [address] [facility] [id number]: Hema Palafoxothy WPtel: [address] [facility] [id number]: Rasta Palafox WPtel: [address] [facility] CuuheeMF76744 GHB1229901/2019Appointment: Rasta Palafox WPtel: [address] [facility] [address] [id number]: Pending Gynecology Referral InformationReferral ProcessedReferral: Pending Pulmonology Referral InformationReferralProcessed Referral: Pending Psychiatry Referral InformationReferralInitiatedReferral: Pending Respiratory Services Referral InformationReferralInitiatedReferral: Pending Ophthalmology Referral InformationReferralInitiatedReferral: [facility] WPtel: [address] [facility] [address] [facility] USWriter placed a call out to the patient to notify her that it has been recommended that she be seenby 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 Patient agreed to be seen, does not have a provider of choice and no transportationissues. Glass Designer faxed referral and clinical notes to [facility] in [place], [place] near the patient's home. Patient to [...] seen and prefers a provider in the [facility]. Glass Designer placed a call out to everyone listed in the area and the only location that was able to accept the patient's insurance was [place] [address] [place] [address] and spoke with Maylin. Maylin asked that the patient's referral, face sheet and visit notes be faxed to . Glass Designer faxed over requested documents. Patient appointment confirmation letter generated and mailed to her home address. Patient to call to schedule an appointment.ProcessedReferral: [facility] WPtel: [address] [place] [address] [address] [id number] USPatient notified that it has been advised that she be seen by Neurology. Patient agreed to be seen and prefers to be seen by a provider in the [place], [place] area. Patient denies any concerns with transportation, and prefers to schedule her own appointment. Glass Designer placed a call out to [facility] and spoke with Neeraj P: who confirmed that their office is able to acceptnew patients and the patient's insurance. After confirming the providers fax number, underwriter mortgage loan faxed over the patient's referral, and most recent clinical notes to F: . Patient to call to schedule her appointment. Appointment confirmation letter mailed to the patient's home address. CCDA completed.ProcessedReferral: Pending Nephrology Referral InformationReferralProcessedReferral: Pending Podiatry Referral Information ReferralInitiatedReferral: Pending Podiatry Referral InformationReferral ProcessedReferral: Pending Podiatry Referral InformationReferralInitiated Instructions Comment Date Assessment and plan reviewed with patient . patient with I phone able to participate in visual and audio telehealth visit H19.896-379.03 [facility] ophthalmic ointment received today advised to avoid touches her face or eyes and need to wash hands frequently Z01.89-V72.85 Encounter for screening for tobacco use Tobacco screen complete-patient denies ever smoking R55-780.2 Syncope and collapse Patient reporting episodes where she feels lightheaded, worse when she exerts herself advise to check BS when feeling light headed N18.9-585.9 Chronic kidney disease, unspecified avoid nephro toxic drugs, 07/04/2019 BUN 17; creatinine 0.7; GFR 93 Patient denies ability to drink water stating that it dehydrates her-doesn't know diagnosis, but indicates she was told this by previous urologist Will refer to urology had appointment 10/25/2019 I10-401.9 Essential (primary) hypertension I11.0-402.91 Hypertensive heart disease with heart failure cont hctz 10/17/2019 HTN assessment, encourage lifestyle modifications, exercise, weight loss, and limiting fried and greasy foods, 10/17/2019 GFR 90 E03.9-244.9 Hypothyroidism, unspecified cont levothyroxine N39.46-788.33 Mixed incontinence use of incontinence supplies E11.42-250.60 Type 2 diabetes mellitus with peripheral neuropathy fluctuating blood sugars, BS 171 ate about an hour ago range 110-171 tests one time a day-advised to test at varied times throughout the day-BS log left with patient 10/17/2019 Hemoglobin A1C 6.0; 07/04/2019 Hgb A1C 5.6 10/17/2019 Inocente Soares 7/10-instructed on good daily foot care Note callous formation to bilateral heels-instruct on application of lotion to feet routine follow up with Dr. Gonzales, podiatry-diabetic shoe paperwork received, will mail when signed by MD routine podiatry ophthalmology referral initiated 01/01/2020 FRA complete denies fall 01/01/2020 Functional Assessment complete G47.33-327.23 Obstructive sleep apnea (adult) (pediatric); J45.909-493.90 Asthma Recent ED visit for difficulty breathing-records requested continue inhalers and nebulizer wears cpap every night, believes that is helpful 10/22/2019 Dr. 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
--- OUTSIDE RECORDS SUMMARY | 2023-12-07 02:10 | XMS_ITS | CCD ---
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 Kennel Manager Dog Track Name Role Phone Palomo KING, Anna Primary Care Provider Unav ailable Unavailable Chronic Care Management Unavaila ble Summary Purpose DataExchange Insurance Providers Payer name Policy type / Coverage type Covered democrat ID Effective Begin Date Effective End Date [facility] [id number] Unknown Unknown Family history Mother Diagnosis Age [...] 05/31/2018 Education level Unknown Some High School 10th05/31/20183264RwmsauzvdtInobiylQqglyeogzi61/29/2018Tobacco historySNOMED CT: 935097992Sws never smoked or chewed veenkea4905/31/2018Alcohol historySNOMED CT: 382293437Peeqz drinks ihkjqgz5205/31/2018Has the patient ever used illegal drugs? UnknownHas never used illegal drugs05/31/2018DNR Order/ Advanced Directive UnknownFull Code05/31/2018 Allergies, Adverse Reactions, Alerts Substance Reaction Codes Entered Date Inactivated Date Status *No known food allergies Afunjpg6809/06/2018No Inactive DateActiveMethylprednisolonehivesRxNorm: 6902 09/06/2018No Inactive DateActive Problems [...] Fill Instructions cetirizine 10 mg tablet RxNorm: 7776805 1 Tablet(s) PO daily 01/17/20 20 2019 Inactive loperamide 2 mg tablet RxNorm: 439222 1 Tablet(s) Oral as needed take one tablet after each loose stool, maximum of 8 tablets in 24 hours 01/17/20 20 2019 Inactive quetiapine 100 mg tablet RxNorm: 747102 1 Tablet(s) Oral every night at bedtime 01/17/20 20 2019 Inactive levothyroxine 50 mcg tablet RxNorm: 961015 1 Tablet(s) PO daily 01/17/20 20 2020 Inactive gabapentin 300 mg capsule RxNorm: 877937 1 Capsule(s) PO TID 01/17/20 20 2019 Inactive lisinopril 2.5 mg tablet RxNorm: 533330 1 Tablet(s) PO daily 01/15/20 20 2020 Inactive Singulair 10 mg tablet RxNorm: 863448 1 Tablet(s) PO daily 01/15/20 20 2020 Inactive levothyroxine 50 mcg tablet RxNorm: 004628 1 Tablet(s) PO daily 01/15/20 20 2019 Inactive gabapentin 300 mg capsule RxNorm: 329699 1 Capsule(s) PO TID 01/15/20 20 2019 Inactive cetirizine 10 mg tablet RxNorm: 0668446 1 Tablet(s) PO daily 01/15/20 20 2019 Inactive gentamicin 0.3 % eye drops RxNorm: 413292 1 Drop(s) ophthalmic (eye) four times a day 12/29/19 20 2019 Inactive gentamicin 0.3 % eye drops RxNorm: 480593 1 Drop(s) ophthalmic (eye) four times a day 12/29/19 20 2019 Inactive gentamicin 0.3 % eye drops RxNorm: 876572 1 Drop(s) ophthalmic (eye) four times a day 12/29/19 20 2019 Inactive hydrochlorothiazide 25 mg tablet RxNorm: 753674 1 Tablet(s) Oral every day 12/21/19 20 2019 Inactive Sudafed 12 Hour 120 mg tablet,extended release RxNorm: 3546428 TAKE (1) TABLET BY MOUTH EVERY 12 HOURS NEEDED 12/21/19 2019 Inactive loperamide 2 mg tablet RxNorm: 984834 1 Tablet(s) Oral as needed take one tablet after each loose stool, maximum of 8 tablets in 24 hours 12/11/19 20 2019 Inactive loperamide 2 mg tablet RxNorm: 817068 1 Tablet(s) Oral as needed take one tablet after each loose stool, maximum of 8 tablets in 24 hours 12/11/19 20 2019 Inactive atorvastatin 40 mg tablet RxNorm: 015526 1 Tablet(s) Oral every day 11/29/19 20 2020 Inactive sertraline 100 mg tablet RxNorm: 586339 1 Tablet(s) Oral 11/28/19 20 2019 Inactive quetiapine 100 mg tablet RxNorm: 252966 1 Tablet(s) Oral every night at bedtime 11/28/19 20 2019 Inactive omeprazole 20 mg capsule,delayed release RxNorm: 743366 1 Capsule(s) Oral every day 11/20/19 20 2019 Inactive amoxicillin 250 mg capsule RxNorm: 195085 1 Capsule(s) Oral three times a day 11/07/19 20 2019 Inactive multivitamin with iron-mineral tablet RxNorm: 1 Tablet(s) Oral every day 10/29/19 20 2021 Inactive cetirizine 10 mg tablet RxNorm: 6602655 1 Tablet(s) PO daily 10/20/19 20 2019 Inactive This refill negates all other refills of this medication. Please do not auto refill Singulair 10 mg tablet RxNorm: 373483 1 Tablet(s) PO daily 10/20/19 20 2019 Inactive This refill negates all other refills of this medication gabapentin 300 mg capsule RxNorm: 268963 1 Capsule(s) PO TID 10/20/19 20 2019 Inactive lisinopril 2.5 mg tablet RxNorm: 960333 1 Tablet(s) PO daily 10/20/19 20 2019 Inactive levothyroxine 50 mcg tablet RxNorm: 763372 1 Tablet(s) PO daily 10/20/19 20 2019 Inactive This refill negates all other refills of this medication fenugreek seed extract 500 mg capsule RxNorm: 1 Capsule(s) Oral three times a day 10/17/19 20 2021 Inactive hydrochlorothiazide 25 mg tablet RxNorm: 666163 1 Tablet(s) Oral every day 10/17/19 20 2019 Inactive Alcohol Prep Pads RxNorm: 380429 1 Patch TOP QAM 10/16/19 20 2020 Inactive loperamide 2 mg tablet RxNorm: 759797 1 Tablet(s) Oral as needed take one [...] 2019 Inactive hydrochlorothiazide 25 mg tablet RxNorm: 253649 1 Tablet(s) Oral every day 09/19/20 19 2019 Inactive Sudafed 12 Hour 120 mg tablet,extended release RxNorm: 8058651 1 Tablet(s) Oral every 12 hours as needed 09/11/20 19 2018 Inactive omeprazole 20 mg capsule,delayed release RxNorm: 312663 1 Capsule(s) Oral every day 09/07/20 19 2019 Inactive Sudafed 12 Hour 120 mg tablet,extended release RxNorm: 2859184 1 Tablet(s) Oral every 12 hours as needed 09/04/20 19 2018 Inactive pantoprazole 40 mg tablet,delayed release RxNorm: 286227 1 Tablet(s) Oral every day 08/24/20 19 2018 Inactive discontinue any other H2Blkr. and PPI albuterol sulfate 2.5 mg/3 mL (0.083 %) solution for nebulization RxNorm: 779811 1 Vial Inhalation every four hours as needed as needed for dyspnea 08/17/20 19 2019 Inactive 60/box. This refill negates all other refills of this medication. Please do not fill early. Please do not auto refill. Symbicort 160 mcg-4.5 mcg/actuation HFA aerosol inhaler RxNorm: 0558918 2 Puff(s) INH BID 08/17/20 19 No Stop Date Active Alcohol Prep Pads RxNorm: 963010 1 Patch TOP QAM 08/17/20 19 2019 Inactive True Metrix Glucose Test Strip RxNorm: 1 Test Strips Miscellaneous QAM 08/09/20 19 2019 Inactive 100/container Ventolin HFA 90 mcg/actuation aerosol inhaler RxNorm: 188209 2 Puff(s) INH QID 08/09/20 19 2019 Inactive Please do not fill early. Please do not auto refill. This refill negates all other refills of this medication atorvastatin 40 mg tablet RxNorm: 136582 1 Tablet(s) Oral every day 07/04/20 19 2019 Inactive levmetamfetamine 50 mg nasal inhaler RxNorm: 1 Unit(s) NASAL Q3-4H Do not use more than every 3 hours or 8 times/24hours 06/26/20 19 2021 Inactive Please do not auto refill. This refill negates all other refills of this medication diclofenac sodium 75 mg tablet,delayed release RxNorm: 348291 1 Tablet(s) PO BID 06/26/20 19 2019 Inactive This refill negates all other refills of this medication buspirone 7.5 mg tablet RxNorm: 073269 1 Tablet(s) PO BID 06/26/20 19 2020 Inactive This refill negates all other refills of this medication hydrochlorothiazide 12.5 mg tablet RxNorm: 555681 1 Tablet(s) PO QAM 06/26/20 19 2019 Inactive Ventolin HFA 90 mcg/actuation aerosol inhaler RxNorm: 587269 2 Puff(s) INH QID 06/26/20 19 2018 Inactive Please do not fill early. Please do not auto refill. This refill negates all other refills of this medication Singulair 10 mg tablet RxNorm: 659166 1 Tablet(s) PO daily 06/26/20 19 2019 Inactive This refill negates all other refills of this medication cetirizine 10 mg tablet RxNorm: 0878139 1 Tablet(s) PO daily 06/26/20 19 2019 Inactive This refill negates all other refills of this medication. Please do not auto refill levothyroxine 50 mcg tablet RxNorm: 931686 1 Tablet(s) PO daily 06/26/20 19 2019 Inactive This refill negates all other refills of this medication ranitidine 150 mg tablet RxNorm: 172978 1 Tablet(s) PO BID 06/26/20 19 2018 Inactive This refill negates all other refills of this medication Calcium 600-D3 Plus (mag-zinc) 600 mg calcium-800 unit-50 mg tablet RxNorm: 1 Tablet(s) PO daily take an additonal tablet for itching. 06/26/20 19 2018 Inactive This refill negates all other refills of this medication albuterol sulfate 2.5 mg/3 mL (0.083 %) solution for nebulization RxNorm: 349417 1 Vial INH QID 06/26/20 19 2018 Inactive 60/box. This refill negates all other refills of this medication. Please do not fill early. Please do not auto refill. lisinopril 2.5 mg tablet RxNorm: 628345 1 Tablet(s) PO daily 06/21/20 19 2019 Inactive gabapentin 300 mg capsule RxNorm: 082211 1 Capsule(s) PO TID 06/21/20 19 2019 Inactive atorvastatin 20 mg tablet RxNorm: 415586 1 Tablet(s) PO QHS 06/07/20 19 2018 Inactive This refill negates all other refills of this medication TRUEplus Lancets 30 gauge RxNorm: 1 Lancets Miscellaneous QAM 05/29/20 19 2018 Inactive 100/box gabapentin 300 mg capsule RxNorm: 634606 1 Capsule(s) PO TID 05/03/202018 Inactive Flintstones Complete (iron) 18 mg iron chewable tablet RxNorm: 1 Tablet(s) PO daily 04/04/202021 Inactive This refill negates all other refills of this medication gabapentin 300 mg capsule RxNorm: 823112 1 Capsule(s) PO TID as needed 02/01/202018 Inactive True Metrix Glucose Test Strip RxNorm: 1 Test Strips Miscellaneous QAM 02/01/20 19 2018 Inactive 100/container Alcohol Prep Pads RxNorm: 890354 1 Patch TOP QAM 02/01/202018 Inactive TRUEplus Lancets 30 gauge RxNorm: 1 Lancets Miscellaneous QAM 02/01/202018 Inactive 100/box lisinopril 2.5 mg tablet RxNorm: 678200 1 Tablet(s) PO daily 12/28/192018 Inactive ranitidine 150 mg tablet RxNorm: 202008 1 Tablet(s) PO BID 10/21/192018 Inactive This refill negates all other refills of this medication albuterol sulfate 2.5 mg/3 mL (0.083 %) solution for nebulization RxNorm: 730630 1 Vial INH QID 10/21/192018 Inactive 60/box. [...] this medication gabapentin 300 mg capsule RxNorm: 929132 1 Capsule(s) PO TID as needed 10/21/192018 Inactive atorvastatin 20 mg tablet RxNorm: 376080 1 Tablet(s) PO QHS 10/21/192018 Inactive This refill negates all other refills of this medication trazodone 50 mg tablet RxNorm: 611712 1 Tablet(s) PO QHS 10/21/19 19 2018 Inactive This refill negates all other refills of this medication Ventolin HFA 90 mcg/actuation aerosol inhaler RxNorm: 888300 2 Puff(s) INH QID 10/21/19 19 2018 Inactive Please do not fill early. Please do not auto refill. This refill negates all other refills of this medication Calcium 600-D3 Plus 600 mg calcium-800 unit-50 mg tablet RxNorm: 1 Tablet(s) PO daily take an additonal tablet for itching. 10/21/192018 Inactive This refill negates all other refills of this medication Singulair 10 mg tablet RxNorm: 062665 1 Tablet(s) PO daily 10/21/19 19 2018 Inactive This refill negates all other refills of this medication buspirone 7.5 mg tablet RxNorm: 454648 1 Tablet(s) PO BID 10/21/19 19 2018 Inactive This refill negates all other refills of this medication diclofenac sodium 75 mg tablet,delayed release RxNorm: 313656 1 Tablet(s) PO BID 10/21/19 19 2018 Inactive This refill negates all other refills of this medication hydrochlorothiazide 12.5 mg tablet RxNorm: 494207 1 Tablet(s) PO QAM 10/21/192018 Inactive metoprolol succinate ER 50 mg tablet,extended release 24 hr RxNorm: 115726 1 Tablet(s) PO daily 10/21/192018 Inactive This refill negates all other refills of this medication levothyroxine 50 mcg tablet RxNorm: 393603 1 Tablet(s) PO daily 10/21/192018 Inactive This refill negates all other refills of this medication cetirizine 10 mg tablet RxNorm: 3158645 1 Tablet(s) PO daily 10/21/19 19 2018 Inactive This refill negates all other refills of this medication. Please do not auto refill Flintstones Complete (iron) 18 mg iron chewable tablet RxNorm: 1 Tablet(s) PO daily 10/21/19 19 2018 Inactive This refill negates all other refills of this medication buspirone 7.5 mg tablet RxNorm: 067379 1 Tablet(s) PO BID 10/12/19 19 2018 Inactive cetirizine 10 mg tablet RxNorm: 0785824 1 Tablet(s) PO daily 09/28/20 18 2018 Inactive Guaiasorb DM 10 mg-100 mg/5 mL oral liquid RxNorm: 636395 10 Milliliter(s) PO As needed every 4 hr 09/24/20 18 2018 Inactive Vicks Vaporub 4.7 %-1.2 %-2.6 % topical ointment RxNorm: 2601963 1 Application TOP TID 09/24/20 18 2018 Inactive levmetamfetamine 50 mg nasal inhaler RxNorm: 1 Unit(s) NASAL Q3-4H 09/24/20 18 2017 Inactive sertraline 50 mg tablet RxNorm: 378416 1 Tablet(s) PO daily 09/09/20 18 2018 Inactive Please note dose trazodone 50 mg tablet RxNorm: 023575 1 Tablet(s) PO QHS 09/06/20 18 2018 Inactive sertraline 50 mg tablet RxNorm: 342805 1 Tablet(s) PO daily 09/06/20 18 2017 Inactive amoxicillin 500 mg tablet RxNorm: 019416 1 Tablet(s) PO Q12H 08/31/20 18 2017 Inactive albuterol sulfate 2.5 mg/3 mL (0.083 %) solution for nebulization RxNorm: 664256 1 Vial INH QID 08/10/20 18 2018 Inactive 60/box. Please do not fill early. Please do not auto refill. Prozac 10 mg capsule RxNorm: 065361 1 Capsule(s) PO daily 08/09/20 18 2017 Inactive buspirone 7.5 mg tablet RxNorm: 729248 1 Tablet(s) PO BID 08/09/20 18 2018 Inactive gabapentin 300 mg capsule RxNorm: 566914 1 Capsule(s) PO TID as needed 08/01/20 18 2018 Inactive hydrochlorothiazide 12.5 mg tablet RxNorm: 120101 1 Tablet(s) PO QAM 08/01/20 18 2018 Inactive ranitidine 150 mg tablet RxNorm: 627909 1 Tablet(s) PO BID 08/01/20 18 2018 Inactive Macrobid 100 mg capsule RxNorm: 448297 1 Capsule(s) PO Q12H 06/21/20 18 2017 Inactive Singulair 10 mg tablet RxNorm: 759005 1 Tablet(s) PO daily 06/14/20 18 2018 Inactive Ventolin HFA 90 mcg/actuation aerosol inhaler RxNorm: 4572062 2 Puff(s) INH QID 06/14/20 18 2018 Inactive Singulair 10 mg tablet RxNorm: 866180 1 Tablet(s) PO daily 06/14/20 18 2017 Inactive buspirone 7.5 mg tablet RxNorm: 667247 1 Tablet(s) PO BID 06/14/20 18 2017 Inactive Prozac 10 mg capsule RxNorm: 385246 1 Capsule(s) PO daily 06/14/20 18 2017 Inactive Neilmed Pediatric Sinus Rinse Refill packet RxNorm: 1 Unit Dose NASAL PRN 05/31/20 18 2021 Inactive diclofenac sodium 75 mg tablet,delayed release RxNorm: 703183 1 Tablet(s) PO BID 05/31/20 18 2017 Inactive lisinopril 2.5 mg tablet RxNorm: 448609 1 Tablet(s) PO daily 05/31/20 18 2017 Inactive metoprolol succinate ER 50 mg tablet,extended release 24 hr RxNorm: 828772 1 Tablet(s) PO daily 05/31/20 18 2017 Inactive levothyroxine 50 mcg tablet RxNorm: 259414 1 Tablet(s) PO daily 05/31/20 18 2017 Inactive TRUEplus Lancets 30 gauge RxNorm: 1 Lancets Miscellaneous QAM 05/31/20 18 2017 Inactive 100/box Ventolin HFA 90 mcg/actuation aerosol inhaler RxNorm: 006168 2 Puff(s) INH QID 05/31/20 18 2017 Inactive Aleve 220 mg capsule RxNorm: 8389288 1 Capsule(s) PO BID 05/31/20 18 2018 Inactive ranitidine 150 mg tablet RxNorm: 528147 1 Tablet(s) PO BID 05/31/20 18 2017 Inactive gabapentin 300 mg capsule RxNorm: 106274 1 Capsule(s) PO TID as needed 05/31/20 18 2017 Inactive atorvastatin 20 mg tablet RxNorm: 910201 1 Tablet(s) PO QHS 05/31/20 18 2017 Inactive True Metrix Glucose Test Strip RxNorm: 1 Test Strips Miscellaneous QAM 05/31/20 18 2017 Inactive 50/container Calcium 600-D3 Plus 600 mg calcium-800 unit-50 mg tablet RxNorm: 1 Tablet(s) PO daily take an additonal tablet for itching. 05/31/20 18 2017 Inactive hydrochlorothiazide 12.5 mg tablet RxNorm: 747713 1 Tablet(s) PO QAM 05/31/20 18 2017 Inactive Flintstones Complete (iron) 18 mg iron chewable tablet RxNorm: 1 Tablet(s) PO daily 05/31/20 18 2017 Inactive d-mannose oral powder RxNorm: PO 18 2021 Inactive True Metrix Glucose Meter RxNorm: miscellaneous 08/17/20 19 2018 Inactive sertraline 50 mg tablet RxNorm: 546551 1 Tablet(s) PO daily 11/28/19 20 2019 Inactive loperamide 2 mg tablet RxNorm: 430813 oral 09/29/20 19 2018 Inactive Symbicort 160 mcg-4.5 mcg/actuation HFA aerosol inhaler RxNorm: 7995671 2 Puff(s) INH BID 08/17/20 19 2018 Inactive Medication Administered No Medication Administered data Procedures Procedure Codes Date Tobacco Assessment/Screening CPT-4: TCA Fall Risk Assessment SNOMED CT: 30124599 4 CPT-4: DFRA01/01/2020Functional AssessmentCPT-4: DFA01/01/2020[place] Fany AssessmentCPT-4: DS11/28/2019Patient Health QuestionnaireCPT-4: DPHQ11/28/2019 [place] Fany AssessmentCPT-4: DSWA10/17/2019HypertensionCPT-4: HTN10/17/[address]: 394148345 CPT-4: DFRA09/19/2019Functional AssessmentCPT-4: DFA111/20/2018Urinalysis, dip stickCPT-4: 5041422Tobacco Assessment/ScreeningCPT-4: TCA05/24/2019 Patient Health QuestionnaireCPT-4: DPHQ05/24/2019AHA/REBECCA Classification AssessmentCPT-4: DAHA04/25/2019Controlled Substance ReportCPT-4: CTRSU04/25/2019 Urinalysis, dip stickCPT-4: 7539088Urinalysis, dip stickCPT-4: 92470 03/28/20197338Q8M-DpcmjjxetsakggyAIJ-5: 27972XeuzkuqP4A-FytbqnsynruwyqhGJC-5: [address]: 922505623 CPT-4: F13Lweheii Reason For Visit No Reason For Visit data Plan of Care Planned Activity Notes Codes Status Date Referral: Pending Gynecology Referral Informatio n Referral ProcessedReferral: Pending Pulmonology Referral InformationReferralProcessed Referral: Pending Psychiatry Referral InformationReferralInitiatedReferral: Pending Respiratory Services Referral InformationReferralInitiatedReferral: Pending Ophthalmology Referral InformationReferralInitiatedReferral: [facility] WPtel: [address] [place] [address] USWriter placed a call out to the patient to notify her that it has been recommended that she be seenby 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 Patient agreed to be seen, does not have a provider of choice and no transportationissues. Roofing Contractor faxed referral and clinical notes to [facility] in [place], [place] near the patient's home. Patient to [...] seen and prefers a provider in the [place] or [place] area. Roofing Contractor placed a call out to everyone listed in the area and the only location that was able to accept the patient's insurance was [address] [address] and spoke with Maylin. Maylin asked that the patient's referral, face sheet and visit notes be faxed to . Roofing Contractor faxed over requested documents. Patient appointment confirmation letter generated and mailed to her home address. Patient to call to schedule an appointment.ProcessedReferral: [facility] WPtel: [address] [place] [address] [place], [place] [id number] USPatient notified that it has been advised that she be seen by Neurology. Patient agreed to be seen and prefers to be seen by a provider in the [place], [place] area. Patient denies any concerns with transportation, and prefers to schedule her own appointment. Roofing Contractor placed a call out to [facility] and spoke with [...]
--- OUTSIDE RECORDS SUMMARY | 2023-12-07 02:10 | XMS_ITS | CCD ---
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 Deposit Clerk Name Role Phone Palomo KING, Anna Primary Care Provider Unav ailable Unavailable Chronic Care Management Unavaila ble Summary Purpose DataExchange Insurance Providers Payer name Policy type / Coverage type Covered republican ID Effective Begin Date Effective End Date [facility] [employer] [id number] Unknown Unknown Family history Mother Diagnosis Age [...] 05/31/2018 Education level Unknown Some High School 10th05/31/20186725OjbtvxelgsLtwlthxZjnzfdwogy24/29/2018Tobacco historySNOMED CT: 799334395Cmw never smoked or chewed ystbsav5405/31/2018Alcohol historySNOMED CT: 037270583Ghcaf drinks cbxptrz5005/31/2018Has the patient ever used illegal drugs? UnknownHas never used illegal drugs05/31/2018DNR Order/ Advanced Directive UnknownFull Code05/31/2018 Allergies, Adverse Reactions, Alerts Substance Reaction Codes Entered Date Inactivated Date Status *No known food allergies Qwfseuf4909/06/2018No Inactive DateActiveMethylprednisolonehivesRxNorm: 6902 09/06/2018No Inactive DateActive Problems [...] malignant neoplasm of cervixICD-10: Z12.4 ICD-9: V76.207/ActiveOther alf (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ICD-10: Z79.899 ICD-9: V58.6907/ActiveChest pain, [...] Fill Instructions levothyroxine 50 mcg tablet RxNorm: 070520 1 Tablet(s) PO daily 01/15/20 20 2019 Inactive lisinopril 2.5 mg tablet RxNorm: 716366 1 Tablet(s) PO daily 01/15/20 20 2020 Inactive gabapentin 300 mg capsule RxNorm: 025172 1 Capsule(s) PO TID 01/15/20 20 2019 Inactive cetirizine 10 mg tablet RxNorm: 0096615 1 Tablet(s) PO daily 01/15/20 20 2019 Inactive Singulair 10 mg tablet RxNorm: 090358 1 Tablet(s) PO daily 01/15/20 20 2020 Inactive gentamicin 0.3 % eye drops RxNorm: 152526 1 Drop(s) ophthalmic (eye) four times a day 12/29/19 20 2019 Inactive gentamicin 0.3 % eye drops RxNorm: 241519 1 Drop(s) ophthalmic (eye) four times a day 12/29/19 20 2019 Inactive gentamicin 0.3 % eye drops RxNorm: 918778 1 Drop(s) ophthalmic (eye) four times a day 12/29/19 20 2019 Inactive hydrochlorothiazide 25 mg tablet RxNorm: 869520 1 Tablet(s) Oral every day 12/21/19 20 2019 Inactive Sudafed 12 Hour 120 mg tablet,extended release RxNorm: 9279321 TAKE (1) TABLET BY MOUTH EVERY 12 HOURS NEEDED 12/21/19 20 2019 Inactive loperamide 2 mg tablet RxNorm: 526087 1 Tablet(s) Oral as needed take one tablet after each loose stool, maximum of 8 tablets in 24 hours 12/11/19 20 2019 Inactive loperamide 2 mg tablet RxNorm: 668321 1 Tablet(s) Oral as needed take one tablet after each loose stool, maximum of 8 tablets in 24 hours 12/11/19 20 2019 Inactive atorvastatin 40 mg tablet RxNorm: 221520 1 Tablet(s) Oral every day 11/29/19 20 2020 Inactive quetiapine 100 mg tablet RxNorm: 742958 1 Tablet(s) Oral every night at bedtime 11/28/19 20 2019 Inactive sertraline 100 mg tablet RxNorm: 078138 1 Tablet(s) Oral 11/28/19 20 2019 Inactive omeprazole 20 mg capsule,delayed release RxNorm: 709686 1 Capsule(s) Oral every day 11/20/19 20 2019 Inactive amoxicillin 250 mg capsule RxNorm: 823260 1 Capsule(s) Oral three times a day 11/07/19 20 2019 Inactive multivitamin with iron-mineral tablet RxNorm: 1 Tablet(s) Oral every day 10/29/19 20 2021 Inactive cetirizine 10 mg tablet RxNorm: 8895994 1 Tablet(s) PO daily 10/20/19 20 2019 Inactive This refill negates all other refills of this medication. Please do not auto refill Singulair 10 mg tablet RxNorm: 956129 1 Tablet(s) PO daily 10/20/19 20 2019 Inactive This refill negates all other refills of this medication gabapentin 300 mg capsule RxNorm: 152640 1 Capsule(s) PO TID 10/20/19 20 2019 Inactive lisinopril 2.5 mg tablet RxNorm: 346902 1 Tablet(s) PO daily 10/20/19 20 2019 Inactive levothyroxine 50 mcg tablet RxNorm: 774637 1 Tablet(s) PO daily 10/20/19 20 2019 Inactive This refill negates all other refills of this medication fenugreek seed extract 500 mg capsule RxNorm: 1 Capsule(s) Oral three times a day 10/17/19 20 2021 Inactive hydrochlorothiazide 25 mg tablet RxNorm: 310572 1 Tablet(s) Oral every day 10/17/19 20 2019 Inactive Alcohol Prep Pads RxNorm: 121570 1 Patch TOP QAM 10/16/192020 Inactive loperamide 2 mg tablet RxNorm: 196811 1 Tablet(s) Oral as needed take one [...] 2019 Inactive hydrochlorothiazide 25 mg tablet RxNorm: 966930 1 Tablet(s) Oral every day 09/19/20 19 2019 Inactive Sudafed 12 Hour 120 mg tablet,extended release RxNorm: 4385346 1 Tablet(s) Oral every 12 hours as needed 09/11/20 19 2018 Inactive omeprazole 20 mg capsule,delayed release RxNorm: 956179 1 Capsule(s) Oral every day 09/07/20 19 2019 Inactive Sudafed 12 Hour 120 mg tablet,extended release RxNorm: 1407814 1 Tablet(s) Oral every 12 hours as needed 09/04/20 19 2018 Inactive pantoprazole 40 mg tablet,delayed release RxNorm: 070903 1 Tablet(s) Oral every day 08/24/20 19 2018 Inactive discontinue any other H2Blkr. and PPI albuterol sulfate 2.5 mg/3 mL (0.083 %) solution for nebulization RxNorm: 560057 1 Vial Inhalation every four hours as needed as needed for dyspnea 08/17/202019 Inactive 60/box. This refill negates all other refills of this medication. Please do not fill early. Please do not auto refill. Symbicort 160 mcg-4.5 mcg/actuation HFA aerosol inhaler RxNorm: 1331767 2 Puff(s) INH BID 08/17/20 No Stop Date Active Alcohol Prep Pads RxNorm: 830030 1 Patch TOP QAM 08/17/20 19 2019 Inactive True Metrix Glucose Test Strip RxNorm: 1 Test Strips Miscellaneous QAM 08/09/20 19 2019 Inactive 100/container Ventolin HFA 90 mcg/actuation aerosol inhaler RxNorm: 083838 2 Puff(s) INH QID 08/09/20 19 2019 Inactive Please do not fill early. Please do not auto refill. This refill negates all other refills of this medication atorvastatin 40 mg tablet RxNorm: 522062 1 Tablet(s) Oral every day 07/04/20 19 2019 Inactive levmetamfetamine 50 mg nasal inhaler RxNorm: 1 Unit(s) NASAL Q3-4H Do not use more than every 3 hours or 8 times/24hours 06/26/20 19 2021 Inactive Please do not auto refill. This refill negates all other refills of this medication diclofenac sodium 75 mg tablet,delayed release RxNorm: 869131 1 Tablet(s) PO BID 06/26/20 19 2019 Inactive This refill negates all other refills of this medication buspirone 7.5 mg tablet RxNorm: 164540 1 Tablet(s) PO BID 06/26/20 19 2020 Inactive This refill negates all other refills of this medication hydrochlorothiazide 12.5 mg tablet RxNorm: 124921 1 Tablet(s) PO QAM 06/26/20 19 2019 Inactive Ventolin HFA 90 mcg/actuation aerosol inhaler RxNorm: 073507 2 Puff(s) INH QID 06/26/20 19 2018 Inactive Please do not fill early. Please do not auto refill. This refill negates all other refills of this medication Singulair 10 mg tablet RxNorm: 883729 1 Tablet(s) PO daily 06/26/20 19 2019 Inactive This refill negates all other refills of this medication cetirizine 10 mg tablet RxNorm: 2992670 1 Tablet(s) PO daily 06/26/20 19 2019 Inactive This refill negates all other refills of this medication. Please do not auto refill levothyroxine 50 mcg tablet RxNorm: 501259 1 Tablet(s) PO daily 06/26/20 19 2019 Inactive This refill negates all other refills of this medication ranitidine 150 mg tablet RxNorm: 758498 1 Tablet(s) PO BID 06/26/20 19 2018 Inactive This refill negates all other refills of this medication Calcium 600-D3 Plus (mag-zinc) 600 mg calcium-800 unit-50 mg tablet RxNorm: 1 Tablet(s) PO daily take an additonal tablet for itching. 06/26/20 19 2018 Inactive This refill negates all other refills of this medication albuterol sulfate 2.5 mg/3 mL (0.083 %) solution for nebulization RxNorm: 743504 1 Vial INH QID 06/26/20 19 2018 Inactive 60/box. This refill negates all other refills of this medication. Please do not fill early. Please do not auto refill. lisinopril 2.5 mg tablet RxNorm: 301365 1 Tablet(s) PO daily 06/21/20 19 2019 Inactive gabapentin 300 mg capsule RxNorm: 676599 1 Capsule(s) PO TID 06/21/20 19 2019 Inactive atorvastatin 20 mg tablet RxNorm: 129393 1 Tablet(s) PO QHS 06/07/20 19 2018 Inactive This refill negates all other refills of this medication TRUEplus Lancets 30 gauge RxNorm: 1 Lancets Miscellaneous QAM 05/29/20 19 2018 Inactive 100/box gabapentin 300 mg capsule RxNorm: 584740 1 Capsule(s) PO TID 05/03/20 19 2018 Inactive Flnickolas Complete (iron) 18 mg iron chewable tablet RxNorm: 1 Tablet(s) PO daily 04/04/20 19 2021 Inactive This refill negates all other refills of this medication gabapentin 300 mg capsule RxNorm: 522482 1 Capsule(s) PO TID as needed 02/01/20 19 2018 Inactive True Metrix Glucose Test Strip RxNorm: 1 Test Strips Miscellaneous QAM 02/01/20 19 2018 Inactive 100/container Alcohol Prep Pads RxNorm: 352683 1 Patch TOP QAM 02/01/20 19 2018 Inactive TRUEplus Lancets 30 gauge RxNorm: 1 Lancets Miscellaneous QAM 02/01/20 19 2018 Inactive 100/box lisinopril 2.5 mg tablet RxNorm: 468195 1 Tablet(s) PO daily 12/28/19 19 2018 Inactive ranitidine 150 mg tablet RxNorm: 875460 1 Tablet(s) PO BID 10/21/19 19 2018 Inactive This refill negates all other refills of this medication albuterol sulfate 2.5 mg/3 mL (0.083 %) solution for nebulization RxNorm: 984970 1 Vial INH QID 10/21/19 19 2018 [...] this medication gabapentin 300 mg capsule RxNorm: 215629 1 Capsule(s) PO TID as needed 10/21/19 19 2018 Inactive atorvastatin 20 mg tablet RxNorm: 500679 1 Tablet(s) PO QHS 10/21/19 19 2018 Inactive This refill negates all other refills of this medication trazodone 50 mg tablet RxNorm: 140203 1 Tablet(s) PO QHS 10/21/192018 Inactive This refill negates all other refills of this medication Ventolin HFA 90 mcg/actuation aerosol inhaler RxNorm: 091339 2 Puff(s) INH QID 10/21/19 19 2018 [...] this medication Singulair 10 mg tablet RxNorm: 316439 1 Tablet(s) PO daily 10/21/192018 Inactive This refill negates all other refills of this medication buspirone 7.5 mg tablet RxNorm: 457749 1 Tablet(s) PO BID 10/21/19 19 2018 Inactive This refill negates all other refills of this medication diclofenac sodium 75 mg tablet,delayed release RxNorm: 641106 1 Tablet(s) PO BID 10/21/19 19 2018 Inactive This refill negates all other refills of this medication hydrochlorothiazide 12.5 mg tablet RxNorm: 712223 1 Tablet(s) PO QAM 10/21/19 19 2018 Inactive metoprolol succinate ER 50 mg tablet,extended release 24 hr RxNorm: 625789 1 Tablet(s) PO daily 10/21/19 19 2018 Inactive This refill negates all other refills of this medication levothyroxine 50 mcg tablet RxNorm: 211909 1 Tablet(s) PO daily 10/21/192018 Inactive This refill negates all other refills of this medication cetirizine 10 mg tablet RxNorm: 7008630 1 Tablet(s) PO daily 10/21/192018 Inactive This refill negates all other refills of this medication. Please do not auto refill Flintstones Complete (iron) 18 mg iron chewable tablet RxNorm: 1 Tablet(s) PO daily 10/21/192018 Inactive This refill negates all other refills of this medication buspirone 7.5 mg tablet RxNorm: 913032 1 Tablet(s) PO BID 10/12/192018 Inactive cetirizine 10 mg tablet RxNorm: 2479977 1 Tablet(s) PO daily 09/28/202018 Inactive Guaiasorb DM 10 mg-100 mg/5 mL oral liquid RxNorm: 573568 10 Milliliter(s) PO As needed every 4 hr 09/24/20 18 2018 Inactive Vicks Vaporub 4.7 %-1.2 %-2.6 % topical ointment RxNorm: 3078353 1 Application TOP TID 09/24/20 18 2018 Inactive levmetamfetamine 50 mg nasal inhaler RxNorm: 1 Unit(s) NASAL Q3-4H 09/24/20 18 2017 Inactive sertraline 50 mg tablet RxNorm: 022524 1 Tablet(s) PO daily 09/09/20 18 2018 Inactive Please note dose trazodone 50 mg tablet RxNorm: 492999 1 Tablet(s) PO QHS 09/06/20 18 2018 Inactive sertraline 50 mg tablet RxNorm: 909422 1 Tablet(s) PO daily 09/06/20 18 2017 Inactive amoxicillin 500 mg tablet RxNorm: 304104 1 Tablet(s) PO Q12H 08/31/20 18 2017 Inactive albuterol sulfate 2.5 mg/3 mL (0.083 %) solution for nebulization RxNorm: 261169 1 Vial INH QID 08/10/20 18 2018 Inactive 60/box. Please do not fill early. Please do not auto refill. Prozac 10 mg capsule RxNorm: 983059 1 Capsule(s) PO daily 08/09/20 18 2017 Inactive buspirone 7.5 mg tablet RxNorm: 031319 1 Tablet(s) PO BID 08/09/20 18 2018 Inactive gabapentin 300 mg capsule RxNorm: 435681 1 Capsule(s) PO TID as needed 08/01/20 18 2018 Inactive hydrochlorothiazide 12.5 mg tablet RxNorm: 146830 1 Tablet(s) PO QAM 08/01/20 18 2018 Inactive ranitidine 150 mg tablet RxNorm: 066354 1 Tablet(s) PO BID 08/01/20 18 2018 Inactive Macrobid 100 mg capsule RxNorm: 273356 1 Capsule(s) PO Q12H 06/21/20 18 2017 Inactive Singulair 10 mg tablet RxNorm: 021959 1 Tablet(s) PO daily 06/14/20 18 2018 Inactive Ventolin HFA 90 mcg/actuation aerosol inhaler RxNorm: 5286343 2 Puff(s) INH QID 06/14/20 18 2018 Inactive Singulair 10 mg tablet RxNorm: 456464 1 Tablet(s) PO daily 06/14/20 18 2017 Inactive buspirone 7.5 mg tablet RxNorm: 167836 1 Tablet(s) PO BID 06/14/20 18 2017 Inactive Prozac 10 mg capsule RxNorm: 543395 1 Capsule(s) PO daily 06/14/20 18 2017 Inactive Neilmed Pediatric Sinus Rinse Refill packet RxNorm: 1 Unit Dose NASAL PRN 05/31/20 18 2021 Inactive diclofenac sodium 75 mg tablet,delayed release RxNorm: 322359 1 Tablet(s) PO BID 05/31/20 18 2017 Inactive lisinopril 2.5 mg tablet RxNorm: 984152 1 Tablet(s) PO daily 05/31/20 18 2017 Inactive metoprolol succinate ER 50 mg tablet,extended release 24 hr RxNorm: 898882 1 Tablet(s) PO daily 05/31/20 18 2017 Inactive levothyroxine 50 mcg tablet RxNorm: 133156 1 Tablet(s) PO daily 05/31/20 18 2017 Inactive TRUEplus Lancets 30 gauge RxNorm: 1 Lancets Miscellaneous QAM 05/31/20 18 2017 Inactive 100/box Ventolin HFA 90 mcg/actuation aerosol inhaler RxNorm: 272669 2 Puff(s) INH QID 05/31/20 18 2017 Inactive Aleve 220 mg capsule RxNorm: 2053959 1 Capsule(s) PO BID 05/31/20 18 2018 Inactive ranitidine 150 mg tablet RxNorm: 663586 1 Tablet(s) PO BID 05/31/20 18 2017 Inactive gabapentin 300 mg capsule RxNorm: 864620 1 Capsule(s) PO TID as needed 05/31/20 18 2017 Inactive atorvastatin 20 mg tablet RxNorm: 453119 1 Tablet(s) PO QHS 05/31/20 18 2017 Inactive True Metrix Glucose Test Strip RxNorm: 1 Test Strips Miscellaneous QAM 05/31/20 18 2017 Inactive 50/container Calcium 600-D3 Plus 600 mg calcium-800 unit-50 mg tablet RxNorm: 1 Tablet(s) PO daily take an additonal tablet for itching. 05/31/20 18 2017 Inactive hydrochlorothiazide 12.5 mg tablet RxNorm: 548890 1 Tablet(s) PO QAM 05/31/20 18 2017 Inactive Flintstones Complete (iron) 18 mg iron chewable tablet RxNorm: 1 Tablet(s) PO daily 05/31/20 18 2017 Inactive d-mannose oral powder RxNorm: PO 18 2021 Inactive True Metrix Glucose Meter RxNorm: miscellaneous 08/17/202018 Inactive sertraline 50 mg tablet RxNorm: 070562 1 Tablet(s) PO daily 11/28/19 20 2019 Inactive loperamide 2 mg tablet RxNorm: 193935 oral 09/29/20 19 2018 Inactive Symbicort 160 mcg-4.5 mcg/actuation HFA aerosol inhaler RxNorm: 3607356 2 Puff(s) INH BID 08/17/202018 Inactive Medication Administered No Medication Administered data Procedures Procedure Codes Date Tobacco Assessment/Screening CPT-4: TCA Fall Risk Assessment [facility] CT: 64520875 4 CPT-4: DFRA01/01/2020Functional AssessmentCPT-4: DFA01/01/2020[place] Fany AssessmentCPT-4: DSWA11/28/2019Patient Health QuestionnaireCPT-4: DPHQ11/28/2019 [place] Fany AssessmentCPT-4: DSWA10/17/2019HypertensionCPT-4: HTN10/17/2019 [facility] 205755287 CPT-4: DFRA09/19/2019Functional AssessmentCPT-4: DFA111/20/2018Urinalysis, dip stickCPT-4: 8971443Tobacco Assessment/ScreeningCPT-4: TCA05/24/2019 Patient Health QuestionnaireCPT-4: DPHQ08AHA/REBECCA Classification AssessmentCPT-4: DAHA04/25/2019Controlled Substance ReportCPT-4: CTRSU04/25/2019 Urinalysis, dip stickCPT-4: 362018703/28/2019Urinalysis, dip stickCPT-4: 01368 03/28/20199159G8S-WusltimzasdyfraOCN-9: 70482VeosujqS7S-JqtkajxekmtlvstYNG-6: [address]: 861573132 CPT-4: K20Mkrsyaf Reason For Visit No Reason For Visit data Plan of Care Planned Activity Notes Codes Status Date Referral: Pending Gynecology Referral Informatio n Referral ProcessedReferral: Pending Pulmonology Referral InformationReferralProcessed Referral: Pending Psychiatry Referral InformationReferralInitiatedReferral: Pending Respiratory Services Referral InformationReferralInitiatedReferral: Pending Ophthalmology Referral InformationReferralInitiatedReferral: [facility] WPtel: [address] [place] [address] [address] [address] USWriter placed a call out to the patient to notify her that it has been recommended that she be seenby 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 Patient agreed to be seen, does not have a provider of choice and no transportationissues. Inspector [employer] faxed referral and clinical notes to [facility] in [place], [place] near the patient's home. Patient to [...] seen and prefers a provider in the [place] or [place] area. Inspector [employer] placed a call out to everyone listed in the area and the only location that was able to accept the patient's insurance was [address] [address] and spoke with Maylin. Maylin asked that the patient's referral, face sheet and visit notes be faxed to . Inspector [employer] faxed over requested documents. Patient appointment confirmation letter generated and mailed to her home address. Patient to call to schedule an appointment.ProcessedReferral: [facility] WPtel: [address] [facility] [address] [place], [place] [id number] USPatient notified that it has been advised that she be seen by Neurology. Patient agreed to be seen and prefers to be seen by a provider in the [place], [place] area. Patient denies any concerns with transportation, and prefers to schedule her own appointment. Inspector [employer] placed a call out to [facility] and spoke with Neeraj Mcfarland: who confirmed that their office is able to acceptnew patients and the patient's insurance. After confirming the providers fax number, screen writer faxed over the patient's referral, and [...]
--- OUTSIDE RECORDS SUMMARY | 2023-12-07 02:10 | XMS_ITS | CCD ---
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 Parcel Post Weigher Name Role Phone Palomo KING, Anna Primary Care Provider Unav ailable Unavailable Chronic Care Management Unavaila ble Summary Purpose DataExchange Insurance Providers Payer name Policy type / Coverage type Covered alliance party ID Effective Begin Date Effective End Date [employer] [facility] [id number] Unknown Unknown Family history Mother Diagnosis Age [...] 05/31/2018 Education level Unknown Some High School 10th05/31/20185229ThjvxltlqkTprruulKjxzwbeono17/29/2018Tobacco historySNOMED CT: 061119499Mtu never smoked or chewed zgjohhl4605/31/2018Alcohol historySNOMED CT: 518418868Whoit drinks nekljmp4005/31/2018Has the patient ever used illegal drugs? UnknownHas never used illegal drugs05/31/2018DNR Order/ Advanced Directive UnknownFull Code05/31/2018 Allergies, Adverse Reactions, Alerts Substance Reaction Codes Entered Date Inactivated Date Status *No known food allergies Vtcohtm0209/06/2018No Inactive DateActiveMethylprednisolonehivesRxNorm: 6902 09/06/2018No Inactive DateActive Problems [...] malignant neoplasm of cervixICD-10: Z12.4 ICD-9: V76.207/ActiveOther group home (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ICD-10: Z79.899 ICD-9: V58.6907/ActiveChest pain, [...] Fill Instructions levothyroxine 50 mcg tablet RxNorm: 789657 1 Tablet(s) PO daily 01/15/20 20 2019 Inactive lisinopril 2.5 mg tablet RxNorm: 018426 1 Tablet(s) PO daily 01/15/20 20 2020 Inactive gabapentin 300 mg capsule RxNorm: 895971 1 Capsule(s) PO TID 01/15/20 20 2019 Inactive cetirizine 10 mg tablet RxNorm: 9008717 1 Tablet(s) PO daily 01/15/20 20 2019 Inactive Singulair 10 mg tablet RxNorm: 374762 1 Tablet(s) PO daily 01/15/20 20 2020 Inactive gentamicin 0.3 % eye drops RxNorm: 695972 1 Drop(s) ophthalmic (eye) four times a day 12/29/19 20 2019 Inactive gentamicin 0.3 % eye drops RxNorm: 400778 1 Drop(s) ophthalmic (eye) four times a day 12/29/19 20 2019 Inactive gentamicin 0.3 % eye drops RxNorm: 409378 1 Drop(s) ophthalmic (eye) four times a day 12/29/19 20 2019 Inactive hydrochlorothiazide 25 mg tablet RxNorm: 456778 1 Tablet(s) Oral every day 12/21/19 20 2019 Inactive Sudafed 12 Hour 120 mg tablet,extended release RxNorm: 2301106 TAKE (1) TABLET BY MOUTH EVERY 12 HOURS NEEDED 12/21/19 20 2019 Inactive loperamide 2 mg tablet RxNorm: 544312 1 Tablet(s) Oral as needed take one tablet after each loose stool, maximum of 8 tablets in 24 hours 12/11/19 20 2019 Inactive loperamide 2 mg tablet RxNorm: 559506 1 Tablet(s) Oral as needed take one tablet after each loose stool, maximum of 8 tablets in 24 hours 12/11/19 20 2019 Inactive atorvastatin 40 mg tablet RxNorm: 397833 1 Tablet(s) Oral every day 11/29/19 20 2020 Inactive quetiapine 100 mg tablet RxNorm: 739224 1 Tablet(s) Oral every night at bedtime 11/28/19 20 2019 Inactive sertraline 100 mg tablet RxNorm: 664958 1 Tablet(s) Oral 11/28/19 20 2019 Inactive omeprazole 20 mg capsule,delayed release RxNorm: 689604 1 Capsule(s) Oral every day 11/20/19 20 2019 Inactive amoxicillin 250 mg capsule RxNorm: 198655 1 Capsule(s) Oral three times a day 11/07/19 20 2019 Inactive multivitamin with iron-mineral tablet RxNorm: 1 Tablet(s) Oral every day 10/29/19 20 2021 Inactive cetirizine 10 mg tablet RxNorm: 7014651 1 Tablet(s) PO daily 10/20/19 20 2019 Inactive This refill negates all other refills of this medication. Please do not auto refill Singulair 10 mg tablet RxNorm: 320422 1 Tablet(s) PO daily 10/20/19 20 2019 Inactive This refill negates all other refills of this medication gabapentin 300 mg capsule RxNorm: 952110 1 Capsule(s) PO TID 10/20/19 20 2019 Inactive lisinopril 2.5 mg tablet RxNorm: 574377 1 Tablet(s) PO daily 10/20/19 20 2019 Inactive levothyroxine 50 mcg tablet RxNorm: 925987 1 Tablet(s) PO daily 10/20/19 20 2019 Inactive This refill negates all other refills of this medication fenugreek seed extract 500 mg capsule RxNorm: 1 Capsule(s) Oral three times a day 10/17/19 20 2021 Inactive hydrochlorothiazide 25 mg tablet RxNorm: 996164 1 Tablet(s) Oral every day 10/17/19 20 2019 Inactive Alcohol Prep Pads RxNorm: 117054 1 Patch TOP QAM 10/16/192020 Inactive loperamide 2 mg tablet RxNorm: 613659 1 Tablet(s) Oral as needed take one [...] 2019 Inactive hydrochlorothiazide 25 mg tablet RxNorm: 579303 1 Tablet(s) Oral every day 09/19/20 19 2019 Inactive Sudafed 12 Hour 120 mg tablet,extended release RxNorm: 8676987 1 Tablet(s) Oral every 12 hours as needed 09/11/20 19 2018 Inactive omeprazole 20 mg capsule,delayed release RxNorm: 892746 1 Capsule(s) Oral every day 09/07/20 19 2019 Inactive Sudafed 12 Hour 120 mg tablet,extended release RxNorm: 0013161 1 Tablet(s) Oral every 12 hours as needed 09/04/20 19 2018 Inactive pantoprazole 40 mg tablet,delayed release RxNorm: 661994 1 Tablet(s) Oral every day 08/24/20 19 2018 Inactive discontinue any other H2Blkr. and PPI albuterol sulfate 2.5 mg/3 mL (0.083 %) solution for nebulization RxNorm: 868875 1 Vial Inhalation every four hours as needed as needed for dyspnea 08/17/202019 Inactive 60/box. This refill negates all other refills of this medication. Please do not fill early. Please do not auto refill. Symbicort 160 mcg-4.5 mcg/actuation HFA aerosol inhaler RxNorm: 4665897 2 Puff(s) INH BID 08/17/20 No Stop Date Active Alcohol Prep Pads RxNorm: 770733 1 Patch TOP QAM 08/17/20 19 2019 Inactive True Metrix Glucose Test Strip RxNorm: 1 Test Strips Miscellaneous QAM 08/09/20 19 2019 Inactive 100/container Ventolin HFA 90 mcg/actuation aerosol inhaler RxNorm: 416713 2 Puff(s) INH QID 08/09/20 19 2019 Inactive Please do not fill early. Please do not auto refill. This refill negates all other refills of this medication atorvastatin 40 mg tablet RxNorm: 894410 1 Tablet(s) Oral every day 07/04/20 19 2019 Inactive levmetamfetamine 50 mg nasal inhaler RxNorm: 1 Unit(s) NASAL Q3-4H Do not use more than every 3 hours or 8 times/24hours 06/26/20 19 2021 Inactive Please do not auto refill. This refill negates all other refills of this medication diclofenac sodium 75 mg tablet,delayed release RxNorm: 149092 1 Tablet(s) PO BID 06/26/20 19 2019 Inactive This refill negates all other refills of this medication buspirone 7.5 mg tablet RxNorm: 682847 1 Tablet(s) PO BID 06/26/20 19 2020 Inactive This refill negates all other refills of this medication hydrochlorothiazide 12.5 mg tablet RxNorm: 799025 1 Tablet(s) PO QAM 06/26/20 19 2019 Inactive Ventolin HFA 90 mcg/actuation aerosol inhaler RxNorm: 583837 2 Puff(s) INH QID 06/26/20 19 2018 Inactive Please do not fill early. Please do not auto refill. This refill negates all other refills of this medication Singulair 10 mg tablet RxNorm: 841837 1 Tablet(s) PO daily 06/26/20 19 2019 Inactive This refill negates all other refills of this medication cetirizine 10 mg tablet RxNorm: 8525556 1 Tablet(s) PO daily 06/26/20 19 2019 Inactive This refill negates all other refills of this medication. Please do not auto refill levothyroxine 50 mcg tablet RxNorm: 130340 1 Tablet(s) PO daily 06/26/20 19 2019 Inactive This refill negates all other refills of this medication ranitidine 150 mg tablet RxNorm: 548293 1 Tablet(s) PO BID 06/26/20 19 2018 Inactive This refill negates all other refills of this medication Calcium 600-D3 Plus (mag-zinc) 600 mg calcium-800 unit-50 mg tablet RxNorm: 1 Tablet(s) PO daily take an additonal tablet for itching. 06/26/20 19 2018 Inactive This refill negates all other refills of this medication albuterol sulfate 2.5 mg/3 mL (0.083 %) solution for nebulization RxNorm: 154277 1 Vial INH QID 06/26/20 19 2018 Inactive 60/box. This refill negates all other refills of this medication. Please do not fill early. Please do not auto refill. lisinopril 2.5 mg tablet RxNorm: 012091 1 Tablet(s) PO daily 06/21/20 19 2019 Inactive gabapentin 300 mg capsule RxNorm: 718262 1 Capsule(s) PO TID 06/21/20 19 2019 Inactive atorvastatin 20 mg tablet RxNorm: 901558 1 Tablet(s) PO QHS 06/07/20 19 2018 Inactive This refill negates all other refills of this medication TRUEplus Lancets 30 gauge RxNorm: 1 Lancets Miscellaneous QAM 05/29/20 19 2018 Inactive 100/box gabapentin 300 mg capsule RxNorm: 198678 1 Capsule(s) PO TID 05/03/20 19 2018 Inactive Flnickolas Complete (iron) 18 mg iron chewable tablet RxNorm: 1 Tablet(s) PO daily 04/04/20 19 2021 Inactive This refill negates all other refills of this medication gabapentin 300 mg capsule RxNorm: 513476 1 Capsule(s) PO TID as needed 02/01/20 19 2018 Inactive True Metrix Glucose Test Strip RxNorm: 1 Test Strips Miscellaneous QAM 02/01/20 19 2018 Inactive 100/container Alcohol Prep Pads RxNorm: 907179 1 Patch TOP QAM 02/01/20 19 2018 Inactive TRUEplus Lancets 30 gauge RxNorm: 1 Lancets Miscellaneous QAM 02/01/20 19 2018 Inactive 100/box lisinopril 2.5 mg tablet RxNorm: 461600 1 Tablet(s) PO daily 12/28/19 19 2018 Inactive ranitidine 150 mg tablet RxNorm: 740470 1 Tablet(s) PO BID 10/21/19 19 2018 Inactive This refill negates all other refills of this medication albuterol sulfate 2.5 mg/3 mL (0.083 %) solution for nebulization RxNorm: 921740 1 Vial INH QID 10/21/19 19 2018 [...] this medication gabapentin 300 mg capsule RxNorm: 358952 1 Capsule(s) PO TID as needed 10/21/19 19 2018 Inactive atorvastatin 20 mg tablet RxNorm: 394372 1 Tablet(s) PO QHS 10/21/19 19 2018 Inactive This refill negates all other refills of this medication trazodone 50 mg tablet RxNorm: 555007 1 Tablet(s) PO QHS 10/21/192018 Inactive This refill negates all other refills of this medication Ventolin HFA 90 mcg/actuation aerosol inhaler RxNorm: 732583 2 Puff(s) INH QID 10/21/19 19 2018 [...] this medication Singulair 10 mg tablet RxNorm: 075563 1 Tablet(s) PO daily 10/21/192018 Inactive This refill negates all other refills of this medication buspirone 7.5 mg tablet RxNorm: 801748 1 Tablet(s) PO BID 10/21/19 19 2018 Inactive This refill negates all other refills of this medication diclofenac sodium 75 mg tablet,delayed release RxNorm: 353634 1 Tablet(s) PO BID 10/21/19 19 2018 Inactive This refill negates all other refills of this medication hydrochlorothiazide 12.5 mg tablet RxNorm: 791014 1 Tablet(s) PO QAM 10/21/19 19 2018 Inactive metoprolol succinate ER 50 mg tablet,extended release 24 hr RxNorm: 576331 1 Tablet(s) PO daily 10/21/19 19 2018 Inactive This refill negates all other refills of this medication levothyroxine 50 mcg tablet RxNorm: 139755 1 Tablet(s) PO daily 10/21/192018 Inactive This refill negates all other refills of this medication cetirizine 10 mg tablet RxNorm: 9088782 1 Tablet(s) PO daily 10/21/192018 Inactive This refill negates all other refills of this medication. Please do not auto refill Flintstones Complete (iron) 18 mg iron chewable tablet RxNorm: 1 Tablet(s) PO daily 10/21/192018 Inactive This refill negates all other refills of this medication buspirone 7.5 mg tablet RxNorm: 825306 1 Tablet(s) PO BID 10/12/192018 Inactive cetirizine 10 mg tablet RxNorm: 6211473 1 Tablet(s) PO daily 09/28/202018 Inactive Guaiasorb DM 10 mg-100 mg/5 mL oral liquid RxNorm: 298281 10 Milliliter(s) PO As needed every 4 hr 09/24/20 18 2018 Inactive Vicks Vaporub 4.7 %-1.2 %-2.6 % topical ointment RxNorm: 6951497 1 Application TOP TID 09/24/20 18 2018 Inactive levmetamfetamine 50 mg nasal inhaler RxNorm: 1 Unit(s) NASAL Q3-4H 09/24/20 18 2017 Inactive sertraline 50 mg tablet RxNorm: 409507 1 Tablet(s) PO daily 09/09/20 18 2018 Inactive Please note dose trazodone 50 mg tablet RxNorm: 097453 1 Tablet(s) PO QHS 09/06/20 18 2018 Inactive sertraline 50 mg tablet RxNorm: 523474 1 Tablet(s) PO daily 09/06/20 18 2017 Inactive amoxicillin 500 mg tablet RxNorm: 244432 1 Tablet(s) PO Q12H 08/31/20 18 2017 Inactive albuterol sulfate 2.5 mg/3 mL (0.083 %) solution for nebulization RxNorm: 426598 1 Vial INH QID 08/10/20 18 2018 Inactive 60/box. Please do not fill early. Please do not auto refill. Prozac 10 mg capsule RxNorm: 527683 1 Capsule(s) PO daily 08/09/20 18 2017 Inactive buspirone 7.5 mg tablet RxNorm: 871462 1 Tablet(s) PO BID 08/09/20 18 2018 Inactive gabapentin 300 mg capsule RxNorm: 227773 1 Capsule(s) PO TID as needed 08/01/20 18 2018 Inactive hydrochlorothiazide 12.5 mg tablet RxNorm: 111976 1 Tablet(s) PO QAM 08/01/20 18 2018 Inactive ranitidine 150 mg tablet RxNorm: 254815 1 Tablet(s) PO BID 08/01/20 18 2018 Inactive Macrobid 100 mg capsule RxNorm: 502763 1 Capsule(s) PO Q12H 06/21/20 18 2017 Inactive Singulair 10 mg tablet RxNorm: 007041 1 Tablet(s) PO daily 06/14/20 18 2018 Inactive Ventolin HFA 90 mcg/actuation aerosol inhaler RxNorm: 3037170 2 Puff(s) INH QID 06/14/20 18 2018 Inactive Singulair 10 mg tablet RxNorm: 517848 1 Tablet(s) PO daily 06/14/20 18 2017 Inactive buspirone 7.5 mg tablet RxNorm: 671202 1 Tablet(s) PO BID 06/14/20 18 2017 Inactive Prozac 10 mg capsule RxNorm: 792678 1 Capsule(s) PO daily 06/14/20 18 2017 Inactive Neilmed Pediatric Sinus Rinse Refill packet RxNorm: 1 Unit Dose NASAL PRN 05/31/20 18 2021 Inactive diclofenac sodium 75 mg tablet,delayed release RxNorm: 884999 1 Tablet(s) PO BID 05/31/20 18 2017 Inactive lisinopril 2.5 mg tablet RxNorm: 047623 1 Tablet(s) PO daily 05/31/20 18 2017 Inactive metoprolol succinate ER 50 mg tablet,extended release 24 hr RxNorm: 914248 1 Tablet(s) PO daily 05/31/20 18 2017 Inactive levothyroxine 50 mcg tablet RxNorm: 064491 1 Tablet(s) PO daily 05/31/20 18 2017 Inactive TRUEplus Lancets 30 gauge RxNorm: 1 Lancets Miscellaneous QAM 05/31/20 18 2017 Inactive 100/box Ventolin HFA 90 mcg/actuation aerosol inhaler RxNorm: 647973 2 Puff(s) INH QID 05/31/20 18 2017 Inactive Aleve 220 mg capsule RxNorm: 0227677 1 Capsule(s) PO BID 05/31/20 18 2018 Inactive ranitidine 150 mg tablet RxNorm: 743802 1 Tablet(s) PO BID 05/31/20 18 2017 Inactive gabapentin 300 mg capsule RxNorm: 216853 1 Capsule(s) PO TID as needed 05/31/20 18 2017 Inactive atorvastatin 20 mg tablet RxNorm: 171384 1 Tablet(s) PO QHS 05/31/20 18 2017 Inactive True Metrix Glucose Test Strip RxNorm: 1 Test Strips Miscellaneous QAM 05/31/20 18 2017 Inactive 50/container Calcium 600-D3 Plus 600 mg calcium-800 unit-50 mg tablet RxNorm: 1 Tablet(s) PO daily take an additonal tablet for itching. 05/31/20 18 2017 Inactive hydrochlorothiazide 12.5 mg tablet RxNorm: 150923 1 Tablet(s) PO QAM 05/31/20 18 2017 Inactive Flintstones Complete (iron) 18 mg iron chewable tablet RxNorm: 1 Tablet(s) PO daily 05/31/20 18 2017 Inactive d-mannose oral powder RxNorm: PO 18 2021 Inactive True Metrix Glucose Meter RxNorm: miscellaneous 08/17/202018 Inactive sertraline 50 mg tablet RxNorm: 284864 1 Tablet(s) PO daily 11/28/19 20 2019 Inactive loperamide 2 mg tablet RxNorm: 129026 oral 09/29/20 19 2018 Inactive Symbicort 160 mcg-4.5 mcg/actuation HFA aerosol inhaler RxNorm: 0582576 2 Puff(s) INH BID 08/17/202018 Inactive Medication Administered No Medication Administered data Procedures Procedure Codes Date Tobacco Assessment/Screening CPT-4: TCA Fall Risk Assessment [facility] CT: 20142819 4 CPT-4: DFRA01/01/2020Functional AssessmentCPT-4: DFA01/01/2020[place] Fany AssessmentCPT-4: DSWA11/28/2019Patient Health QuestionnaireCPT-4: DPHQ11/28/2019 [place] Fany AssessmentCPT-4: DSWA10/17/2019HypertensionCPT-4: HTN10/17/2019 [facility]: 941278920 CPT-4: DFRA09/19/2019Functional AssessmentCPT-4: DFA111/20/2018Urinalysis, dip stickCPT-4: 8895679Tobacco Assessment/ScreeningCPT-4: TCA05/24/2019 Patient Health QuestionnaireCPT-4: DPHQ08AHA/REBECCA Classification AssessmentCPT-4: DAHA04/25/2019Controlled Substance ReportCPT-4: CTRSU04/25/2019 Urinalysis, dip stickCPT-4: 114779903/28/2019Urinalysis, dip stickCPT-4: 64150 03/28/20192720Z8Z-RxcnivrzplegmhvJCW-0: 46936CbfzpvlI7I-GyxdonnocbmojgfIKI-3: [address]: 424838071 CPT-4: A77Fjfefos Reason For Visit No Reason For Visit data Plan of Care Planned Activity Notes Codes Status Date Referral: Pending Gynecology Referral Informatio n Referral ProcessedReferral: Pending Pulmonology Referral InformationReferralProcessed Referral: Pending Psychiatry Referral InformationReferralInitiatedReferral: Pending Respiratory Services Referral InformationReferralInitiatedReferral: Pending Ophthalmology Referral InformationReferralInitiatedReferral: [facility] WPtel: [address] [place] [address] [address] [address] USWriter placed a call out to the patient to notify her that it has been recommended that she be seenby 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 Patient agreed to be seen, does not have a provider of choice and no transportationissues. Dirt Shoveler faxed referral and clinical notes to [facility] in [place], [place] near the patient's home. Patient to [...] seen and prefers a provider in the [place] or [place] area. Dirt Shoveler placed a call out to everyone listed in the area and the only location that was able to accept the patient's insurance was [address] [address] and spoke with Maylin. Maylin asked that the patient's referral, face sheet and visit notes be faxed to . Dirt Shoveler faxed over requested documents. Patient appointment confirmation letter generated and mailed to her home address. Patient to call to schedule an appointment.ProcessedReferral: [facility] WPtel: [address] [place], [place] [id number] USPatient notified that it has been advised that she be seen by Neurology. Patient agreed to be seen and prefers to be seen by a provider in the [place], [place] area. Patient denies any concerns with transportation, and prefers to schedule her own appointment. Dirt Shoveler placed a call out to [facility] and spoke with Neeraj Mcfarland: who confirmed that their office is able to acceptnew patients and the patient's insurance. After confirming the providers fax number, residential mortgage underwriter faxed over the patient's referral, [...]
--- OUTSIDE RECORDS SUMMARY | 2023-12-07 02:10 | XMS_ITS | CCD ---
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 Operations Business Partner Name Role Phone Palomo KING, Anna Primary Care Provider Unav ailable Unavailable Chronic Care Management Unavaila ble Summary Purpose DataExchange Insurance Providers Payer name Policy type / Coverage type Covered republican ID Effective Begin Date Effective End Date [employer] [facility] [id number] Unknown Unknown Family history Mother Diagnosis Age [...] 05/31/2018 Education level Unknown Some High School 10th05/31/20181365CcpostoosmUunummwEtjpeutjio41/29/2018Tobacco historySNOMED CT: 288638329Zov never smoked or chewed tlagasd0705/31/2018Alcohol historySNOMED CT: 012384416Uognw drinks kpezpxb4105/31/2018Has the patient ever used illegal drugs? UnknownHas never used illegal drugs05/31/2018DNR Order/ Advanced Directive UnknownFull Code05/31/2018 Allergies, Adverse Reactions, Alerts Substance Reaction Codes Entered Date Inactivated Date Status *No known food allergies Rfsigdp7209/06/2018No Inactive DateActiveMethylprednisolonehivesRxNorm: 6902 09/06/2018No Inactive DateActive Problems [...] malignant neoplasm of cervixICD-10: Z12.4 ICD-9: V76.207/ActiveOther prison (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ICD-10: Z79.899 ICD-9: V58.6907/ActiveChest pain, [...] Fill Instructions levothyroxine 50 mcg tablet RxNorm: 161070 1 Tablet(s) PO daily 01/15/20 20 2019 Inactive lisinopril 2.5 mg tablet RxNorm: 161682 1 Tablet(s) PO daily 01/15/20 20 2020 Inactive gabapentin 300 mg capsule RxNorm: 294669 1 Capsule(s) PO TID 01/15/20 20 2019 Inactive cetirizine 10 mg tablet RxNorm: 1493848 1 Tablet(s) PO daily 01/15/20 20 2019 Inactive Singulair 10 mg tablet RxNorm: 918370 1 Tablet(s) PO daily 01/15/20 20 2020 Inactive gentamicin 0.3 % eye drops RxNorm: 872936 1 Drop(s) ophthalmic (eye) four times a day 12/29/19 20 2019 Inactive gentamicin 0.3 % eye drops RxNorm: 217726 1 Drop(s) ophthalmic (eye) four times a day 12/29/19 20 2019 Inactive gentamicin 0.3 % eye drops RxNorm: 518014 1 Drop(s) ophthalmic (eye) four times a day 12/29/19 20 2019 Inactive hydrochlorothiazide 25 mg tablet RxNorm: 110723 1 Tablet(s) Oral every day 12/21/19 20 2019 Inactive Sudafed 12 Hour 120 mg tablet,extended release RxNorm: 9569329 TAKE (1) TABLET BY MOUTH EVERY 12 HOURS NEEDED 12/21/19 20 2019 Inactive loperamide 2 mg tablet RxNorm: 445547 1 Tablet(s) Oral as needed take one tablet after each loose stool, maximum of 8 tablets in 24 hours 12/11/19 20 2019 Inactive loperamide 2 mg tablet RxNorm: 653000 1 Tablet(s) Oral as needed take one tablet after each loose stool, maximum of 8 tablets in 24 hours 12/11/19 20 2019 Inactive atorvastatin 40 mg tablet RxNorm: 931965 1 Tablet(s) Oral every day 11/29/19 20 2020 Inactive quetiapine 100 mg tablet RxNorm: 988493 1 Tablet(s) Oral every night at bedtime 11/28/19 20 2019 Inactive sertraline 100 mg tablet RxNorm: 099004 1 Tablet(s) Oral 11/28/19 20 2019 Inactive omeprazole 20 mg capsule,delayed release RxNorm: 597941 1 Capsule(s) Oral every day 11/20/19 20 2019 Inactive amoxicillin 250 mg capsule RxNorm: 129549 1 Capsule(s) Oral three times a day 11/07/19 20 2019 Inactive multivitamin with iron-mineral tablet RxNorm: 1 Tablet(s) Oral every day 10/29/19 20 2021 Inactive cetirizine 10 mg tablet RxNorm: 6273809 1 Tablet(s) PO daily 10/20/19 20 2019 Inactive This refill negates all other refills of this medication. Please do not auto refill Singulair 10 mg tablet RxNorm: 752134 1 Tablet(s) PO daily 10/20/19 20 2019 Inactive This refill negates all other refills of this medication gabapentin 300 mg capsule RxNorm: 266345 1 Capsule(s) PO TID 10/20/19 20 2019 Inactive lisinopril 2.5 mg tablet RxNorm: 520281 1 Tablet(s) PO daily 10/20/19 20 2019 Inactive levothyroxine 50 mcg tablet RxNorm: 701831 1 Tablet(s) PO daily 10/20/19 20 2019 Inactive This refill negates all other refills of this medication fenugreek seed extract 500 mg capsule RxNorm: 1 Capsule(s) Oral three times a day 10/17/19 20 2021 Inactive hydrochlorothiazide 25 mg tablet RxNorm: 565456 1 Tablet(s) Oral every day 10/17/19 20 2019 Inactive Alcohol Prep Pads RxNorm: 540092 1 Patch TOP QAM 10/16/192020 Inactive loperamide 2 mg tablet RxNorm: 333798 1 Tablet(s) Oral as needed take one [...] 2019 Inactive hydrochlorothiazide 25 mg tablet RxNorm: 600439 1 Tablet(s) Oral every day 09/19/20 19 2019 Inactive Sudafed 12 Hour 120 mg tablet,extended release RxNorm: 4285851 1 Tablet(s) Oral every 12 hours as needed 09/11/20 19 2018 Inactive omeprazole 20 mg capsule,delayed release RxNorm: 567661 1 Capsule(s) Oral every day 09/07/20 19 2019 Inactive Sudafed 12 Hour 120 mg tablet,extended release RxNorm: 4042156 1 Tablet(s) Oral every 12 hours as needed 09/04/20 19 2018 Inactive pantoprazole 40 mg tablet,delayed release RxNorm: 724265 1 Tablet(s) Oral every day 08/24/20 19 2018 Inactive discontinue any other H2Blkr. and PPI albuterol sulfate 2.5 mg/3 mL (0.083 %) solution for nebulization RxNorm: 919207 1 Vial Inhalation every four hours as needed as needed for dyspnea 08/17/202019 Inactive 60/box. This refill negates all other refills of this medication. Please do not fill early. Please do not auto refill. Symbicort 160 mcg-4.5 mcg/actuation HFA aerosol inhaler RxNorm: 7475346 2 Puff(s) INH BID 08/17/20 No Stop Date Active Alcohol Prep Pads RxNorm: 273132 1 Patch TOP QAM 08/17/20 19 2019 Inactive True Metrix Glucose Test Strip RxNorm: 1 Test Strips Miscellaneous QAM 08/09/20 19 2019 Inactive 100/container Ventolin HFA 90 mcg/actuation aerosol inhaler RxNorm: 515247 2 Puff(s) INH QID 08/09/20 19 2019 Inactive Please do not fill early. Please do not auto refill. This refill negates all other refills of this medication atorvastatin 40 mg tablet RxNorm: 755273 1 Tablet(s) Oral every day 07/04/20 19 2019 Inactive levmetamfetamine 50 mg nasal inhaler RxNorm: 1 Unit(s) NASAL Q3-4H Do not use more than every 3 hours or 8 times/24hours 06/26/20 19 2021 Inactive Please do not auto refill. This refill negates all other refills of this medication diclofenac sodium 75 mg tablet,delayed release RxNorm: 661610 1 Tablet(s) PO BID 06/26/20 19 2019 Inactive This refill negates all other refills of this medication buspirone 7.5 mg tablet RxNorm: 814349 1 Tablet(s) PO BID 06/26/20 19 2020 Inactive This refill negates all other refills of this medication hydrochlorothiazide 12.5 mg tablet RxNorm: 853338 1 Tablet(s) PO QAM 06/26/20 19 2019 Inactive Ventolin HFA 90 mcg/actuation aerosol inhaler RxNorm: 329756 2 Puff(s) INH QID 06/26/20 19 2018 Inactive Please do not fill early. Please do not auto refill. This refill negates all other refills of this medication Singulair 10 mg tablet RxNorm: 230860 1 Tablet(s) PO daily 06/26/20 19 2019 Inactive This refill negates all other refills of this medication cetirizine 10 mg tablet RxNorm: 2909377 1 Tablet(s) PO daily 06/26/20 19 2019 Inactive This refill negates all other refills of this medication. Please do not auto refill levothyroxine 50 mcg tablet RxNorm: 281963 1 Tablet(s) PO daily 06/26/20 19 2019 Inactive This refill negates all other refills of this medication ranitidine 150 mg tablet RxNorm: 508684 1 Tablet(s) PO BID 06/26/20 19 2018 Inactive This refill negates all other refills of this medication Calcium 600-D3 Plus (mag-zinc) 600 mg calcium-800 unit-50 mg tablet RxNorm: 1 Tablet(s) PO daily take an additonal tablet for itching. 06/26/20 19 2018 Inactive This refill negates all other refills of this medication albuterol sulfate 2.5 mg/3 mL (0.083 %) solution for nebulization RxNorm: 887080 1 Vial INH QID 06/26/20 19 2018 Inactive 60/box. This refill negates all other refills of this medication. Please do not fill early. Please do not auto refill. lisinopril 2.5 mg tablet RxNorm: 453832 1 Tablet(s) PO daily 06/21/20 19 2019 Inactive gabapentin 300 mg capsule RxNorm: 768838 1 Capsule(s) PO TID 06/21/20 19 2019 Inactive atorvastatin 20 mg tablet RxNorm: 138836 1 Tablet(s) PO QHS 06/07/20 19 2018 Inactive This refill negates all other refills of this medication TRUEplus Lancets 30 gauge RxNorm: 1 Lancets Miscellaneous QAM 05/29/20 19 2018 Inactive 100/box gabapentin 300 mg capsule RxNorm: 934694 1 Capsule(s) PO TID 05/03/20 19 2018 Inactive Flnickolas Complete (iron) 18 mg iron chewable tablet RxNorm: 1 Tablet(s) PO daily 04/04/20 19 2021 Inactive This refill negates all other refills of this medication gabapentin 300 mg capsule RxNorm: 675124 1 Capsule(s) PO TID as needed 02/01/20 19 2018 Inactive True Metrix Glucose Test Strip RxNorm: 1 Test Strips Miscellaneous QAM 02/01/20 19 2018 Inactive 100/container Alcohol Prep Pads RxNorm: 216591 1 Patch TOP QAM 02/01/20 19 2018 Inactive TRUEplus Lancets 30 gauge RxNorm: 1 Lancets Miscellaneous QAM 02/01/20 19 2018 Inactive 100/box lisinopril 2.5 mg tablet RxNorm: 329288 1 Tablet(s) PO daily 12/28/19 19 2018 Inactive ranitidine 150 mg tablet RxNorm: 291334 1 Tablet(s) PO BID 10/21/19 19 2018 Inactive This refill negates all other refills of this medication albuterol sulfate 2.5 mg/3 mL (0.083 %) solution for nebulization RxNorm: 533883 1 Vial INH QID 10/21/19 19 2018 [...] this medication gabapentin 300 mg capsule RxNorm: 592803 1 Capsule(s) PO TID as needed 10/21/19 19 2018 Inactive atorvastatin 20 mg tablet RxNorm: 783650 1 Tablet(s) PO QHS 10/21/19 19 2018 Inactive This refill negates all other refills of this medication trazodone 50 mg tablet RxNorm: 339097 1 Tablet(s) PO QHS 10/21/192018 Inactive This refill negates all other refills of this medication Ventolin HFA 90 mcg/actuation aerosol inhaler RxNorm: 501346 2 Puff(s) INH QID 10/21/19 19 2018 [...] this medication Singulair 10 mg tablet RxNorm: 352733 1 Tablet(s) PO daily 10/21/192018 Inactive This refill negates all other refills of this medication buspirone 7.5 mg tablet RxNorm: 901180 1 Tablet(s) PO BID 10/21/19 19 2018 Inactive This refill negates all other refills of this medication diclofenac sodium 75 mg tablet,delayed release RxNorm: 203833 1 Tablet(s) PO BID 10/21/19 19 2018 Inactive This refill negates all other refills of this medication hydrochlorothiazide 12.5 mg tablet RxNorm: 235132 1 Tablet(s) PO QAM 10/21/19 19 2018 Inactive metoprolol succinate ER 50 mg tablet,extended release 24 hr RxNorm: 696370 1 Tablet(s) PO daily 10/21/19 19 2018 Inactive This refill negates all other refills of this medication levothyroxine 50 mcg tablet RxNorm: 291245 1 Tablet(s) PO daily 10/21/192018 Inactive This refill negates all other refills of this medication cetirizine 10 mg tablet RxNorm: 6006829 1 Tablet(s) PO daily 10/21/192018 Inactive This refill negates all other refills of this medication. Please do not auto refill Flintstones Complete (iron) 18 mg iron chewable tablet RxNorm: 1 Tablet(s) PO daily 10/21/192018 Inactive This refill negates all other refills of this medication buspirone 7.5 mg tablet RxNorm: 731961 1 Tablet(s) PO BID 10/12/192018 Inactive cetirizine 10 mg tablet RxNorm: 2033771 1 Tablet(s) PO daily 09/28/202018 Inactive Guaiasorb DM 10 mg-100 mg/5 mL oral liquid RxNorm: 438607 10 Milliliter(s) PO As needed every 4 hr 09/24/20 18 2018 Inactive Vicks Vaporub 4.7 %-1.2 %-2.6 % topical ointment RxNorm: 4477760 1 Application TOP TID 09/24/20 18 2018 Inactive levmetamfetamine 50 mg nasal inhaler RxNorm: 1 Unit(s) NASAL Q3-4H 09/24/20 18 2017 Inactive sertraline 50 mg tablet RxNorm: 535467 1 Tablet(s) PO daily 09/09/20 18 2018 Inactive Please note dose trazodone 50 mg tablet RxNorm: 463400 1 Tablet(s) PO QHS 09/06/20 18 2018 Inactive sertraline 50 mg tablet RxNorm: 379435 1 Tablet(s) PO daily 09/06/20 18 2017 Inactive amoxicillin 500 mg tablet RxNorm: 656502 1 Tablet(s) PO Q12H 08/31/20 18 2017 Inactive albuterol sulfate 2.5 mg/3 mL (0.083 %) solution for nebulization RxNorm: 483668 1 Vial INH QID 08/10/20 18 2018 Inactive 60/box. Please do not fill early. Please do not auto refill. Prozac 10 mg capsule RxNorm: 000056 1 Capsule(s) PO daily 08/09/20 18 2017 Inactive buspirone 7.5 mg tablet RxNorm: 836389 1 Tablet(s) PO BID 08/09/20 18 2018 Inactive gabapentin 300 mg capsule RxNorm: 361831 1 Capsule(s) PO TID as needed 08/01/20 18 2018 Inactive hydrochlorothiazide 12.5 mg tablet RxNorm: 737904 1 Tablet(s) PO QAM 08/01/20 18 2018 Inactive ranitidine 150 mg tablet RxNorm: 375833 1 Tablet(s) PO BID 08/01/20 18 2018 Inactive Macrobid 100 mg capsule RxNorm: 143064 1 Capsule(s) PO Q12H 06/21/20 18 2017 Inactive Singulair 10 mg tablet RxNorm: 918829 1 Tablet(s) PO daily 06/14/20 18 2018 Inactive Ventolin HFA 90 mcg/actuation aerosol inhaler RxNorm: 1134678 2 Puff(s) INH QID 06/14/20 18 2018 Inactive Singulair 10 mg tablet RxNorm: 653881 1 Tablet(s) PO daily 06/14/20 18 2017 Inactive buspirone 7.5 mg tablet RxNorm: 134865 1 Tablet(s) PO BID 06/14/20 18 2017 Inactive Prozac 10 mg capsule RxNorm: 886825 1 Capsule(s) PO daily 06/14/20 18 2017 Inactive Neilmed Pediatric Sinus Rinse Refill packet RxNorm: 1 Unit Dose NASAL PRN 05/31/20 18 2021 Inactive diclofenac sodium 75 mg tablet,delayed release RxNorm: 246064 1 Tablet(s) PO BID 05/31/20 18 2017 Inactive lisinopril 2.5 mg tablet RxNorm: 282586 1 Tablet(s) PO daily 05/31/20 18 2017 Inactive metoprolol succinate ER 50 mg tablet,extended release 24 hr RxNorm: 771995 1 Tablet(s) PO daily 05/31/20 18 2017 Inactive levothyroxine 50 mcg tablet RxNorm: 729113 1 Tablet(s) PO daily 05/31/20 18 2017 Inactive TRUEplus Lancets 30 gauge RxNorm: 1 Lancets Miscellaneous QAM 05/31/20 18 2017 Inactive 100/box Ventolin HFA 90 mcg/actuation aerosol inhaler RxNorm: 830820 2 Puff(s) INH QID 05/31/20 18 2017 Inactive Aleve 220 mg capsule RxNorm: 4774882 1 Capsule(s) PO BID 05/31/20 18 2018 Inactive ranitidine 150 mg tablet RxNorm: 888548 1 Tablet(s) PO BID 05/31/20 18 2017 Inactive gabapentin 300 mg capsule RxNorm: 108351 1 Capsule(s) PO TID as needed 05/31/20 18 2017 Inactive atorvastatin 20 mg tablet RxNorm: 069983 1 Tablet(s) PO QHS 05/31/20 18 2017 Inactive True Metrix Glucose Test Strip RxNorm: 1 Test Strips Miscellaneous QAM 05/31/20 18 2017 Inactive 50/container Calcium 600-D3 Plus 600 mg calcium-800 unit-50 mg tablet RxNorm: 1 Tablet(s) PO daily take an additonal tablet for itching. 05/31/20 18 2017 Inactive hydrochlorothiazide 12.5 mg tablet RxNorm: 533069 1 Tablet(s) PO QAM 05/31/20 18 2017 Inactive Flintstones Complete (iron) 18 mg iron chewable tablet RxNorm: 1 Tablet(s) PO daily 05/31/20 18 2017 Inactive d-mannose oral powder RxNorm: PO 18 2021 Inactive True Metrix Glucose Meter RxNorm: miscellaneous 08/17/202018 Inactive sertraline 50 mg tablet RxNorm: 101408 1 Tablet(s) PO daily 11/28/19 20 2019 Inactive loperamide 2 mg tablet RxNorm: 498307 oral 09/29/20 19 2018 Inactive Symbicort 160 mcg-4.5 mcg/actuation HFA aerosol inhaler RxNorm: 1338114 2 Puff(s) INH BID 08/17/202018 Inactive Medication Administered No Medication Administered data Procedures Procedure Codes Date Tobacco Assessment/Screening CPT-4: TCA Fall Risk Assessment [facility] CT: 75659636 4 CPT-4: DFRA01/01/2020Functional AssessmentCPT-4: DFA01/01/2020Semmes Fany AssessmentCPT-4: DSWA11/28/2019Patient Health QuestionnaireCPT-4: DPHQ11/28/2019 [place] Fany AssessmentCPT-4: DSWA10/17/2019HypertensionCPT-4: HTN10/17/2019 [facility] 60[facility] CPT-4: DFRA09/19/2019Functional AssessmentCPT-4: DFA111/20/2018Urinalysis, dip stickCPT-4: 6578027Tobacco Assessment/ScreeningCPT-4: TCA05/24/2019 Patient Health QuestionnaireCPT-4: DPHQ08AHA/REBECCA Classification AssessmentCPT-4: DAHA04/25/2019Controlled Substance ReportCPT-4: CTRSU04/25/2019 Urinalysis, dip stickCPT-4: 630566803/28/2019Urinalysis, dip stickCPT-4: 01979 03/28/20191728D0X-WqvanxpkvekrrnpNXC-3: 27637ZslnzbgN2S-SjwihfmresswilzLOU-2: [address]: 903965179 CPT-4: K18Jsyimcz Reason For Visit No Reason For Visit data Plan of Care Planned Activity Notes Codes Status Date Referral: Pending Gynecology Referral Informatio n Referral ProcessedReferral: Pending Pulmonology Referral InformationReferralProcessed Referral: Pending Psychiatry Referral InformationReferralInitiatedReferral: Pending Respiratory Services Referral InformationReferralInitiatedReferral: Pending Ophthalmology Referral InformationReferralInitiatedReferral: [facility] WPtel: [address] [place] [address] [address] [address] USWriter placed a call out to the patient to notify her that it has been recommended that she be seenby 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 Patient agreed to be seen, does not have a provider of choice and no transportationissues. [facility] faxed referral and clinical notes to [facility] in [place], [place] near the patient's home. Patient to [...] seen and prefers a provider in the [place] or [place] area. [employer] placed a call out to everyone listed in the area and the only location that was able to accept the patient's insurance was [address] [phone] and spoke with Maylin. Maylin asked that the patient's referral, face sheet and visit notes be faxed to . [employer] faxed over requested documents. Patient appointment confirmation letter generated and mailed to her home address. Patient to call to schedule an appointment.ProcessedReferral: [facility] WPtel: [address] [facility] [address] [place], [place] [id number] USPatient notified that it has been advised that she be seen by Neurology. Patient agreed to be seen and prefers to be seen by a provider in the [place], [place] area. Patient denies any concerns with transportation, and prefers to schedule her own appointment. [facility] placed a call out to [facility] and spoke with Neeraj [...]
--- OUTSIDE RECORDS SUMMARY | 2023-12-07 02:11 | XMS_ITS | CCD ---
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 Animal Feeder Name Role Phone Palomo KING, Anna Primary Care Provider Unav ailable Unavailable Chronic Care Management Unavaila ble Summary Purpose DataExchange Insurance Providers Payer name Policy type / Coverage type Covered green party ID Effective Begin Date Effective End Date [facility] [id number] Unknown Unknown Family history Mother Diagnosis Age [...] 05/31/2018 Education level Unknown Some High School 10th05/31/20181962CpzepxbymxNudgsysAvvscuyexv93/29/2018Tobacco historySNOMED CT: 767045503Mgy never smoked or chewed txjykxo2405/31/2018Alcohol historySNOMED CT: 746298344Mwopb drinks kjysvxb1505/31/2018Has the patient ever used illegal drugs? UnknownHas never used illegal drugs05/31/2018DNR Order/ Advanced Directive UnknownFull Code05/31/2018 Allergies, Adverse Reactions, Alerts Substance Reaction Codes Entered Date Inactivated Date Status *No known food allergies Cpjgdkd0709/06/2018No Inactive DateActiveMethylprednisolonehivesRxNorm: 6902 09/06/2018No Inactive DateActive Problems Condition Codes Effective Dates Condition St atus Abrasion of toe ICD-10: S90.416A ICD-9: 917.005ActiveEncounter for screening for malignant neoplasm of cervixICD-10: Z12.4 ICD-9: V76.ActiveEssential (primary) hypertensionICD-10: I10 ICD-9: 401.901ActiveObstructive sleep apnea (adult) (pediatric)ICD-10: G47.33 ICD-9: 327.2309/ActiveType 2 diabetes mellitus with peripheral neuropathy ICD-10: E11.42 ICD-9: 250.6002ActiveEncounter for screening for tobacco useICD-10: Z01.89 ICD-9: [...] ICD-9: 250.0001/10/2018ActiveSinusitisICD-10: J32.9 ICD-9: 473.902ActiveAsthmaICD-10: J45.909 ICD-9: 493.9011ActiveChronic kidney disease, unspecifiedICD-10: N18.9 ICD-9: 585.909ActiveGERD (gastroesophageal reflux disease)ICD-10: K21.9 ICD-9: 530.8112ActiveAcute upper respiratory infection, unspecifiedICD- 10: J06.9 ICD-9: 465.912ActiveHypothyroidism, unspecifiedICD-10: E03.9 ICD-9: 244.912/01/2018ActiveHyperlipidemia, unspecifiedICD-10: E78.5 ICD-9: 272.408/ActiveApnea, not elsewhere classifiedICD-10: R06.81 ICD-9: 786.0305ActiveEncounter for immunizationICD-10: Z23 ICD-9: V03.907/ActiveEncounter for screening, unspecifiedICD-10: Z13.9 ICD-9: V82.912/01/2018ActivePolyneuropathy, unspecifiedICD-10: G62.9 ICD-9: 356.908/ActivePatient Not SeenICD-10: UXZ.01 ICD-9: XZ0.107/ActiveOther chcf (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ICD-10: Z79.899 ICD-9: V58.6907/ActiveChest pain, [...] every morning 03/13/20 20 2019 Inactive 100/container loperamide 2 mg tablet RxNorm: 567643 1 Tablet(s) Oral as needed take one tablet after each loose stool, maximum of 8 tablets in 24 hours 02/22/20 20 2019 Inactive True Metrix Glucose Test Strip RxNorm: 1 Test Strips Miscellaneous QAM 02/22/20 20 2019 Inactive 100/container cetirizine 10 mg tablet RxNorm: 1384296 1 Tablet(s) PO daily 01/17/20 20 2019 Inactive levothyroxine 50 mcg tablet RxNorm: 655019 1 Tablet(s) PO daily 01/17/20 20 2020 Inactive gabapentin 300 mg capsule RxNorm: 560984 1 Capsule(s) PO TID 01/17/20 20 2019 Inactive loperamide 2 mg tablet RxNorm: 629923 1 Tablet(s) Oral as needed take one tablet after each loose stool, maximum of 8 tablets in 24 hours 01/17/20 20 2019 Inactive quetiapine 100 mg tablet RxNorm: 786221 1 Tablet(s) Oral every night at bedtime 01/17/20 20 2019 Inactive lisinopril 2.5 mg tablet RxNorm: 598239 1 Tablet(s) PO daily 01/15/20 20 2020 Inactive Singulair 10 mg tablet RxNorm: 002418 1 Tablet(s) PO daily 01/15/20 20 2020 Inactive levothyroxine 50 mcg tablet RxNorm: 501739 1 Tablet(s) PO daily 01/15/20 20 2019 Inactive gabapentin 300 mg capsule RxNorm: 668395 1 Capsule(s) PO TID 01/15/20 20 2019 Inactive cetirizine 10 mg tablet RxNorm: 5471142 1 Tablet(s) PO daily 01/15/20 20 2019 Inactive gentamicin 0.3 % eye drops RxNorm: 747158 1 Drop(s) ophthalmic (eye) four times a day 12/29/19 20 2019 Inactive gentamicin 0.3 % eye drops RxNorm: 755502 1 Drop(s) ophthalmic (eye) four times a day 12/29/19 20 2019 Inactive gentamicin 0.3 % eye drops RxNorm: 557632 1 Drop(s) ophthalmic (eye) four times a day 12/29/19 20 2019 Inactive hydrochlorothiazide 25 mg tablet RxNorm: 111116 1 Tablet(s) Oral every day 12/21/19 20 2019 Inactive Sudafed 12 Hour 120 mg tablet,extended release RxNorm: 9660116 TAKE (1) TABLET BY MOUTH EVERY 12 HOURS NEEDED 12/21/19 20 2019 Inactive loperamide 2 mg tablet RxNorm: 774137 1 Tablet(s) Oral as needed take one tablet after each loose stool, maximum of 8 tablets in 24 hours 12/11/19 20 2019 Inactive loperamide 2 mg tablet RxNorm: 985866 1 Tablet(s) Oral as needed take one tablet after each loose stool, maximum of 8 tablets in 24 hours 12/11/19 20 2019 Inactive atorvastatin 40 mg tablet RxNorm: 706927 1 Tablet(s) Oral every day 11/29/19 20 2020 Inactive sertraline 100 mg tablet RxNorm: 063609 1 Tablet(s) Oral 11/28/19 20 2019 Inactive quetiapine 100 mg tablet RxNorm: 627590 1 Tablet(s) Oral every night at bedtime 11/28/19 20 2019 Inactive omeprazole 20 mg capsule,delayed release RxNorm: 914427 1 Capsule(s) Oral every day 11/20/19 20 2019 Inactive amoxicillin 250 mg capsule RxNorm: 355169 1 Capsule(s) Oral three times a day 11/07/19 20 2019 Inactive multivitamin with iron-mineral tablet RxNorm: 1 Tablet(s) Oral every day 10/29/19 20 2021 Inactive cetirizine 10 mg tablet RxNorm: 1895128 1 Tablet(s) PO daily 10/20/19 20 2019 Inactive This refill negates all other refills of this medication. Please do not auto refill Singulair 10 mg tablet RxNorm: 912518 1 Tablet(s) PO daily 10/20/19 20 2019 Inactive This refill negates all other refills of this medication gabapentin 300 mg capsule RxNorm: 178926 1 Capsule(s) PO TID 10/20/19 20 2019 Inactive lisinopril 2.5 mg tablet RxNorm: 418318 1 Tablet(s) PO daily 10/20/19 20 2019 Inactive levothyroxine 50 mcg tablet RxNorm: 388742 1 Tablet(s) PO daily 10/20/19 20 2019 Inactive This refill negates all other refills of this medication fenugreek seed extract 500 mg capsule RxNorm: 1 Capsule(s) Oral three times a day 10/17/19 20 2021 Inactive hydrochlorothiazide 25 mg tablet RxNorm: 674303 1 Tablet(s) Oral every day 10/17/19 20 2019 Inactive Alcohol Prep Pads RxNorm: 233883 1 Patch TOP QAM 10/16/19 20 2020 Inactive loperamide 2 mg tablet RxNorm: 674358 1 Tablet(s) Oral as needed take one [...] 2019 Inactive hydrochlorothiazide 25 mg tablet RxNorm: 896262 1 Tablet(s) Oral every day 09/19/20 19 2019 Inactive Sudafed 12 Hour 120 mg tablet,extended release RxNorm: 0019789 1 Tablet(s) Oral every 12 hours as needed 09/11/20 19 2018 Inactive omeprazole 20 mg capsule,delayed release RxNorm: 466932 1 Capsule(s) Oral every day 09/07/20 19 2019 Inactive Sudafed 12 Hour 120 mg tablet,extended release RxNorm: 1210397 1 Tablet(s) Oral every 12 hours as needed 09/04/20 19 2018 Inactive pantoprazole 40 mg tablet,delayed release RxNorm: 262667 1 Tablet(s) Oral every day 08/24/20 19 2018 Inactive discontinue any other H2Blkr. and PPI albuterol sulfate 2.5 mg/3 mL (0.083 %) solution for nebulization RxNorm: 884475 1 Vial Inhalation every four hours as needed as needed for dyspnea 08/17/20 19 2019 Inactive 60/box. This refill negates all other refills of this medication. Please do not fill early. Please do not auto refill. Symbicort 160 mcg-4.5 mcg/actuation HFA aerosol inhaler RxNorm: 7955694 2 Puff(s) INH BID 08/17/20 19 No Stop Date Active Alcohol Prep Pads RxNorm: 422074 1 Patch TOP QAM 08/17/20 19 2019 Inactive Ventolin HFA 90 mcg/actuation aerosol inhaler RxNorm: 658616 2 Puff(s) INH QID 08/09/20 19 2019 Inactive Please do not fill early. Please do not auto refill. This refill negates all other refills of this medication True Metrix Glucose Test Strip RxNorm: 1 Test Strips Miscellaneous QAM 08/09/20 19 2019 Inactive 100/container atorvastatin 40 mg tablet RxNorm: 453007 1 Tablet(s) Oral every day 07/04/20 19 2019 Inactive levmetamfetamine 50 mg nasal inhaler RxNorm: 1 Unit(s) NASAL Q3-4H Do not use more than every 3 hours or 8 times/24hours 06/26/20 19 2021 Inactive Please do not auto refill. This refill negates all other refills of this medication diclofenac sodium 75 mg tablet,delayed release RxNorm: 784757 1 Tablet(s) PO BID 06/26/20 19 2019 Inactive This refill negates all other refills of this medication buspirone 7.5 mg tablet RxNorm: 317756 1 Tablet(s) PO BID 06/26/20 19 2020 Inactive This refill negates all other refills of this medication hydrochlorothiazide 12.5 mg tablet RxNorm: 638876 1 Tablet(s) PO QAM 06/26/20 19 2019 Inactive Ventolin HFA 90 mcg/actuation aerosol inhaler RxNorm: 121186 2 Puff(s) INH QID 06/26/20 19 2018 Inactive Please do not fill early. Please do not auto refill. This refill negates all other refills of this medication Singulair 10 mg tablet RxNorm: 495225 1 Tablet(s) PO daily 06/26/20 19 2019 Inactive This refill negates all other refills of this medication cetirizine 10 mg tablet RxNorm: 1722107 1 Tablet(s) PO daily 06/26/20 19 2019 Inactive This refill negates all other refills of this medication. Please do not auto refill levothyroxine 50 mcg tablet RxNorm: 378931 1 Tablet(s) PO daily 06/26/20 19 2019 Inactive This refill negates all other refills of this medication ranitidine 150 mg tablet RxNorm: 958981 1 Tablet(s) PO BID 06/26/20 19 2018 Inactive This refill negates all other refills of this medication Calcium 600-D3 Plus (mag-zinc) 600 mg calcium-800 unit-50 mg tablet RxNorm: 1 Tablet(s) PO daily take an additonal tablet for itching. 06/26/20 19 2018 Inactive This refill negates all other refills of this medication albuterol sulfate 2.5 mg/3 mL (0.083 %) solution for nebulization RxNorm: 254254 1 Vial INH QID 06/26/20 19 2018 Inactive 60/box. This refill negates all other refills of this medication. Please do not fill early. Please do not auto refill. lisinopril 2.5 mg tablet RxNorm: 089256 1 Tablet(s) PO daily 06/21/20 19 2019 Inactive gabapentin 300 mg capsule RxNorm: 702585 1 Capsule(s) PO TID 06/21/20 19 2019 Inactive atorvastatin 20 mg tablet RxNorm: 320992 1 Tablet(s) PO QHS 06/07/20 19 2018 Inactive This refill negates all other refills of this medication TRUEplus Lancets 30 gauge RxNorm: 1 Lancets Miscellaneous QAM 05/29/20 19 2018 Inactive 100/box gabapentin 300 mg capsule RxNorm: 284537 1 Capsule(s) PO TID 05/03/20 19 2018 Inactive Flintstones Complete (iron) 18 mg iron chewable tablet RxNorm: 1 Tablet(s) PO daily 04/04/202021 Inactive This refill negates all other refills of this medication gabapentin 300 mg capsule RxNorm: 963983 1 Capsule(s) PO TID as needed 02/01/20 19 2018 Inactive True Metrix Glucose Test Strip RxNorm: 1 Test Strips Miscellaneous QAM 02/01/20 19 2018 Inactive 100/container Alcohol Prep Pads RxNorm: 702899 1 Patch TOP QAM 02/01/20 19 2018 Inactive TRUEplus Lancets 30 gauge RxNorm: 1 Lancets Miscellaneous QAM 02/01/20 19 2018 Inactive 100/box lisinopril 2.5 mg tablet RxNorm: 513185 1 Tablet(s) PO daily 12/28/192018 Inactive ranitidine 150 mg tablet RxNorm: 622340 1 Tablet(s) PO BID 10/21/192018 Inactive This refill negates all other refills of this medication albuterol sulfate 2.5 mg/3 mL (0.083 %) solution for nebulization RxNorm: 315238 1 Vial INH QID 10/21/19 19 2018 [...] this medication gabapentin 300 mg capsule RxNorm: 129318 1 Capsule(s) PO TID as needed 10/21/192018 Inactive atorvastatin 20 mg tablet RxNorm: 988019 1 Tablet(s) PO QHS 10/21/192018 Inactive This refill negates all other refills of this medication trazodone 50 mg tablet RxNorm: 950179 1 Tablet(s) PO QHS 10/21/192018 Inactive This refill negates all other refills of this medication Ventolin HFA 90 mcg/actuation aerosol inhaler RxNorm: 969966 2 Puff(s) INH QID 10/21/192018 Inactive Please do not fill early. Please do not auto refill. This refill negates all other refills of this medication Calcium 600-D3 Plus 600 mg calcium-800 unit-50 mg tablet RxNorm: 1 Tablet(s) PO daily take an additonal tablet for itching. 10/21/192018 Inactive This refill negates all other refills of this medication Singulair 10 mg tablet RxNorm: 986786 1 Tablet(s) PO daily 10/21/192018 Inactive This refill negates all other refills of this medication buspirone 7.5 mg tablet RxNorm: 314390 1 Tablet(s) PO BID 10/21/192018 Inactive This refill negates all other refills of this medication diclofenac sodium 75 mg tablet,delayed release RxNorm: 272406 1 Tablet(s) PO BID 10/21/19 19 2018 Inactive This refill negates all other refills of this medication hydrochlorothiazide 12.5 mg tablet RxNorm: 591690 1 Tablet(s) PO QAM 10/21/192018 Inactive metoprolol succinate ER 50 mg tablet,extended release 24 hr RxNorm: 671001 1 Tablet(s) PO daily 10/21/19 19 2018 Inactive This refill negates all other refills of this medication levothyroxine 50 mcg tablet RxNorm: 086430 1 Tablet(s) PO daily 10/21/19 19 2018 Inactive This refill negates all other refills of this medication cetirizine 10 mg tablet RxNorm: 5779013 1 Tablet(s) PO daily 10/21/192018 Inactive This refill negates all other refills of this medication. Please do not auto refill Flintstones Complete (iron) 18 mg iron chewable tablet RxNorm: 1 Tablet(s) PO daily 10/21/19 19 2018 Inactive This refill negates all other refills of this medication buspirone 7.5 mg tablet RxNorm: 711949 1 Tablet(s) PO BID 10/12/192018 Inactive cetirizine 10 mg tablet RxNorm: 4059799 1 Tablet(s) PO daily 09/28/20 18 2018 Inactive Guaiasorb DM 10 mg-100 mg/5 mL oral liquid RxNorm: 980054 10 Milliliter(s) PO As needed every 4 hr 09/24/202018 Inactive Vicks Vaporub 4.7 %-1.2 %-2.6 % topical ointment RxNorm: 9243507 1 Application TOP TID 09/24/20 18 2018 Inactive levmetamfetamine 50 mg nasal inhaler RxNorm: 1 Unit(s) NASAL Q3-4H 09/24/20 18 2017 Inactive sertraline 50 mg tablet RxNorm: 766508 1 Tablet(s) PO daily 09/09/20 18 2018 Inactive Please note dose trazodone 50 mg tablet RxNorm: 244756 1 Tablet(s) PO QHS 09/06/20 18 2018 Inactive sertraline 50 mg tablet RxNorm: 115704 1 Tablet(s) PO daily 09/06/20 18 2017 Inactive amoxicillin 500 mg tablet RxNorm: 430989 1 Tablet(s) PO Q12H 08/31/20 18 2017 Inactive albuterol sulfate 2.5 mg/3 mL (0.083 %) solution for nebulization RxNorm: 187249 1 Vial INH QID 08/10/20 18 2018 Inactive 60/box. Please do not fill early. Please do not auto refill. Prozac 10 mg capsule RxNorm: 452518 1 Capsule(s) PO daily 08/09/20 18 2017 Inactive buspirone 7.5 mg tablet RxNorm: 946997 1 Tablet(s) PO BID 08/09/20 18 2018 Inactive gabapentin 300 mg capsule RxNorm: 972043 1 Capsule(s) PO TID as needed 08/01/20 18 2018 Inactive hydrochlorothiazide 12.5 mg tablet RxNorm: 168730 1 Tablet(s) PO QAM 08/01/20 18 2018 Inactive ranitidine 150 mg tablet RxNorm: 285141 1 Tablet(s) PO BID 08/01/20 18 2018 Inactive Macrobid 100 mg capsule RxNorm: 695733 1 Capsule(s) PO Q12H 06/21/20 18 2017 Inactive Singulair 10 mg tablet RxNorm: 786986 1 Tablet(s) PO daily 06/14/20 18 2018 Inactive Ventolin HFA 90 mcg/actuation aerosol inhaler RxNorm: 6420011 2 Puff(s) INH QID 06/14/20 18 2018 Inactive Singulair 10 mg tablet RxNorm: 197056 1 Tablet(s) PO daily 06/14/20 18 2017 Inactive buspirone 7.5 mg tablet RxNorm: 513314 1 Tablet(s) PO BID 06/14/20 18 2017 Inactive Prozac 10 mg capsule RxNorm: 125003 1 Capsule(s) PO daily 06/14/20 18 2017 Inactive Neilmed Pediatric Sinus Rinse Refill packet RxNorm: 1 Unit Dose NASAL PRN 05/31/20 18 2021 Inactive diclofenac sodium 75 mg tablet,delayed release RxNorm: 770869 1 Tablet(s) PO BID 05/31/20 18 2017 Inactive lisinopril 2.5 mg tablet RxNorm: 596897 1 Tablet(s) PO daily 05/31/20 18 2017 Inactive metoprolol succinate ER 50 mg tablet,extended release 24 hr RxNorm: 635172 1 Tablet(s) PO daily 05/31/20 18 2017 Inactive levothyroxine 50 mcg tablet RxNorm: 148016 1 Tablet(s) PO daily 05/31/20 18 2017 Inactive TRUEplus Lancets 30 gauge RxNorm: 1 Lancets Miscellaneous QAM 05/31/20 18 2017 Inactive 100/box Ventolin HFA 90 mcg/actuation aerosol inhaler RxNorm: 175312 2 Puff(s) INH QID 05/31/20 18 2017 Inactive Aleve 220 mg capsule RxNorm: 9235289 1 Capsule(s) PO BID 05/31/20 18 2018 Inactive ranitidine 150 mg tablet RxNorm: 480439 1 Tablet(s) PO BID 05/31/20 18 2017 Inactive gabapentin 300 mg capsule RxNorm: 619091 1 Capsule(s) PO TID as needed 05/31/20 18 2017 Inactive atorvastatin 20 mg tablet RxNorm: 529424 1 Tablet(s) PO QHS 05/31/20 18 2017 Inactive True Metrix Glucose Test Strip RxNorm: 1 Test Strips Miscellaneous QAM 05/31/20 18 2017 Inactive 50/container Calcium 600-D3 Plus 600 mg calcium-800 unit-50 mg tablet RxNorm: 1 Tablet(s) PO daily take an additonal tablet for itching. 05/31/20 18 2017 Inactive hydrochlorothiazide 12.5 mg tablet RxNorm: 804755 1 Tablet(s) PO QAM 05/31/20 18 2017 Inactive Flintstones Complete (iron) 18 mg iron chewable tablet RxNorm: 1 Tablet(s) PO daily 05/31/20 18 2017 Inactive d-mannose oral powder RxNorm: PO 18 2021 Inactive True Metrix Glucose Meter RxNorm: miscellaneous 08/17/20 19 2018 Inactive sertraline 50 mg tablet RxNorm: 635453 1 Tablet(s) PO daily 11/28/19 20 2019 Inactive loperamide 2 mg tablet RxNorm: 050620 oral 09/29/20 19 2018 Inactive Symbicort 160 mcg-4.5 mcg/actuation HFA aerosol inhaler RxNorm: 9117907 2 Puff(s) INH BID 08/17/20 19 2018 Inactive Medication Administered No Medication Administered data Procedures Procedure Codes Date Tobacco Assessment/Screening CPT-4: TCA Fall Risk Assessment SNOMED CT: 02280492 4 CPT-4: DFRA01/01/2020Functional AssessmentCPT-4: DFA01/01/2020[place] Fany AssessmentCPT-4: DSWA11/28/2019Patient Health QuestionnaireCPT-4: DPHQ11/28/2019 [place] Fany AssessmentCPT-4: DSWA10/17/2019HypertensionCPT-4: HTN10/17/[address]: 189560077 CPT-4: DFRA09/19/2019Functional AssessmentCPT-4: DFA111/20/2018Urinalysis, dip stickCPT-4: 176988106/21/2019Tobacco Assessment/ScreeningCPT-4: TCA05/24/2019 Patient Health QuestionnaireCPT-4: DPHQ05/24/2019AHA/REBECCA Classification AssessmentCPT-4: DAHA04/25/2019Controlled Substance ReportCPT-4: CTRSU04/25/2019 Urinalysis, dip stickCPT-4: 798156803/28/2019Urinalysis, dip stickCPT-4: 39934 03/28/20192826R0T-PovuxjoxrlykiewUYV-8: 69701GihioxrI7Y-VoeptkkpubkjtgwGDH-5: [address]: 374370724 CPT-4: C65Dawgint Reason For Visit No Reason For Visit data Plan of Care Planned Activity Notes Codes Status Date Referral: Pending Gynecology Referral Informatio n Referral ProcessedReferral: Pending Pulmonology Referral InformationReferralProcessed Referral: Pending Psychiatry Referral InformationReferralInitiatedReferral: Pending Respiratory Services Referral InformationReferralInitiatedReferral: Pending Ophthalmology Referral InformationReferralInitiatedReferral: [facility] WPtel: [address] [facility] USWriter placed a call out to the patient to notify her that it has been recommended that she be seenby 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 Patient agreed to be seen, does not have a provider of choice and no transportationissues. [employer] Manager faxed referral and clinical notes to [facility] in [place], [place] near the patient's home. Patient to [...] seen and prefers a provider in the [place] or [place] area. Numerical Analysis Group Manager placed a call out to everyone listed in the area and the only location that was able to accept the patient's insurance was [address] [address] and spoke with Maylin. Maylin asked that the patient's referral, face sheet and visit notes be faxed to . [employer]ical Analysis [employer] Manager faxed over requested documents. Patient appointment confirmation letter generated and mailed to her home address. Patient to call to schedule an appointment.ProcessedReferral: [facility] WPtel: [address] [place], [place] [id number] USPatient notified that it has been advised that she be seen by Neurology. Patient agreed to be seen and prefers to be seen by a provider in the [place], [place] area. Patient denies any concerns with transportation, and prefers to schedule her own appointment. [employer] Manager placed a call out to [facility] and spoke with Neeraj Mcfarland: who confirmed that their office is able to acceptnew patients and the patient's insurance. After confirming the providers fax number, business writer faxed over the patient's referral, and [...]
--- OUTSIDE RECORDS SUMMARY | 2023-12-07 02:11 | XMS_ITS | CCD ---
Author Name Leena Culver NP Address [address] [place] [address] [place] [address] Phone Organization [employer] [facility] Phone Care Team Providers Care Hiv/Aids Care Nurse Name Role Phone Anna Culver NP Primary Care Provider Unav ailable Unavailable Chronic Care Management Unavaila ble Summary Purpose DataExchange Insurance Providers Payer name Policy type / Coverage type Covered green party ID Effective Begin Date Effective End Date SUKI MAYO [id number] Unknown Unknown Family history Mother Diagnosis Age [...] 05/31/2018 Education level Unknown Some High School 10th05/31/20182834KyrxemhxbrPmskmelPctoaywnda48/29/2018Tobacco historySNOMED CT: 883570182Pbb never smoked or chewed dfrootl3105/31/2018Alcohol historySNOMED CT: 196096943Kcqzs drinks qwxkdvb2005/31/2018Has the patient ever used illegal drugs? UnknownHas never used illegal drugs05/31/2018DNR Order/ Advanced Directive UnknownFull Code05/31/2018 Allergies, Adverse Reactions, Alerts Substance Reaction Codes Entered Date Inactivated Date Status *No known food allergies Cvrzrwb9009/06/2018No Inactive DateActiveMethylprednisolonehivesRxNorm: 6902 09/06/2018No Inactive DateActive Problems Condition Codes Effective Dates Condition St atus Abrasion of toe ICD-10: S90.416A ICD-9: 917.005ActiveEncounter for screening for malignant neoplasm of cervixICD-10: Z12.4 ICD-9: V76.207/ActiveEssential (primary) hypertensionICD-10: I10 ICD-9: 401.901ActiveObstructive sleep apnea (adult) (pediatric)ICD-10: G47.33 ICD-9: 327.2309/ActiveType 2 diabetes mellitus with peripheral neuropathy ICD-10: E11.42 ICD-9: 250.6002ActiveEncounter for screening for tobacco useICD-10: Z01.89 ICD-9: V72.8503ActivePink eyeICD-10: H10.029 ICD-9: 372.0303ActiveSyncope and collapseICD-10: R55 ICD-9: 780.203ActiveFecal incontinenceICD-10: R15.9 ICD-9: 787.6003ActiveMixed incontinenceICD-10: N39.46 ICD-9: 788.3308ActiveDiarrheaICD-10: R19.7 ICD-9: 787.9112ActiveAdjustment disorder with mixed anxiety and depressed moodICD-10: F43.23 ICD-9: 309.2812ActiveAdult BMI 50.0-59.9 kg/sq mICD-10: Z68.43 ICD-9: V85.4308ActiveHypertensive heart disease with heart failureICD- 10: I11.0 ICD-9: 402.9107/ActiveType 2 diabetes mellitus without [...] G62.9 ICD-9: 356.908/ActivePatient Not SeenICD-10: UXZ.01 ICD-9: XZ0.107ActiveOther termite helper (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ICD-10: Z79.899 ICD-9: V58.6907ActiveChest pain, [...] Fill Instructions cetirizine 10 mg tablet RxNorm: 9623870 1 Tablet(s) PO daily 01/17/20 20 2019 Inactive loperamide 2 mg tablet RxNorm: 952885 1 Tablet(s) Oral as needed take one tablet after each loose stool, maximum of 8 tablets in 24 hours 01/17/20 20 2019 Inactive quetiapine 100 mg tablet RxNorm: 284579 1 Tablet(s) Oral every night at bedtime 01/17/20 20 2019 Inactive levothyroxine 50 mcg tablet RxNorm: 124206 1 Tablet(s) PO daily 01/17/20 20 2020 Inactive gabapentin 300 mg capsule RxNorm: 757488 1 Capsule(s) PO TID 01/17/20 20 2019 Inactive lisinopril 2.5 mg tablet RxNorm: 550513 1 Tablet(s) PO daily 01/15/20 20 2020 Inactive Singulair 10 mg tablet RxNorm: 979502 1 Tablet(s) PO daily 01/15/20 20 2020 Inactive levothyroxine 50 mcg tablet RxNorm: 936642 1 Tablet(s) PO daily 01/15/20 20 2019 Inactive gabapentin 300 mg capsule RxNorm: 508865 1 Capsule(s) PO TID 01/15/20 20 2019 Inactive cetirizine 10 mg tablet RxNorm: 8027690 1 Tablet(s) PO daily 01/15/20 20 2019 Inactive gentamicin 0.3 % eye drops RxNorm: 354429 1 Drop(s) ophthalmic (eye) four times a day 12/29/19 20 2019 Inactive gentamicin 0.3 % eye drops RxNorm: 589304 1 Drop(s) ophthalmic (eye) four times a day 12/29/19 20 2019 Inactive gentamicin 0.3 % eye drops RxNorm: 365123 1 Drop(s) ophthalmic (eye) four times a day 12/29/19 20 2019 Inactive hydrochlorothiazide 25 mg tablet RxNorm: 379276 1 Tablet(s) Oral every day 12/21/19 20 2019 Inactive Sudafed 12 Hour 120 mg tablet,extended release RxNorm: 5530415 TAKE (1) TABLET BY MOUTH EVERY 12 HOURS NEEDED 12/21/19 20 2019 Inactive loperamide 2 mg tablet RxNorm: 182253 1 Tablet(s) Oral as needed take one tablet after each loose stool, maximum of 8 tablets in 24 hours 12/11/19 20 2019 Inactive loperamide 2 mg tablet RxNorm: 891355 1 Tablet(s) Oral as needed take one tablet after each loose stool, maximum of 8 tablets in 24 hours 12/11/19 20 2019 Inactive atorvastatin 40 mg tablet RxNorm: 468643 1 Tablet(s) Oral every day 11/29/19 20 2020 Inactive sertraline 100 mg tablet RxNorm: 995336 1 Tablet(s) Oral 11/28/19 20 2019 Inactive quetiapine 100 mg tablet RxNorm: 333408 1 Tablet(s) Oral every night at bedtime 11/28/19 20 2019 Inactive omeprazole 20 mg capsule,delayed release RxNorm: 372763 1 Capsule(s) Oral every day 11/20/19 20 2019 Inactive amoxicillin 250 mg capsule RxNorm: 583256 1 Capsule(s) Oral three times a day 11/07/19 20 2019 Inactive multivitamin with iron-mineral tablet RxNorm: 1 Tablet(s) Oral every day 10/29/19 20 2021 Inactive cetirizine 10 mg tablet RxNorm: 3900956 1 Tablet(s) PO daily 10/20/19 20 2019 Inactive This refill negates all other refills of this medication. Please do not auto refill Singulair 10 mg tablet RxNorm: 885709 1 Tablet(s) PO daily 10/20/19 20 2019 Inactive This refill negates all other refills of this medication gabapentin 300 mg capsule RxNorm: 797964 1 Capsule(s) PO TID 10/20/19 20 2019 Inactive lisinopril 2.5 mg tablet RxNorm: 197586 1 Tablet(s) PO daily 10/20/19 20 2019 Inactive levothyroxine 50 mcg tablet RxNorm: 766281 1 Tablet(s) PO daily 10/20/19 20 2019 Inactive This refill negates all other refills of this medication fenugreek seed extract 500 mg capsule RxNorm: 1 Capsule(s) Oral three times a day 10/17/19 20 2021 Inactive hydrochlorothiazide 25 mg tablet RxNorm: 402874 1 Tablet(s) Oral every day 10/17/19 20 2019 Inactive Alcohol Prep Pads RxNorm: 272928 1 Patch TOP QAM 10/16/19 20 2020 Inactive loperamide 2 mg tablet RxNorm: 491868 1 Tablet(s) Oral as needed take one [...] 2019 Inactive hydrochlorothiazide 25 mg tablet RxNorm: 465911 1 Tablet(s) Oral every day 09/19/20 19 2019 Inactive Sudafed 12 Hour 120 mg tablet,extended release RxNorm: 8338263 1 Tablet(s) Oral every 12 hours as needed 09/11/20 19 2018 Inactive omeprazole 20 mg capsule,delayed release RxNorm: 730484 1 Capsule(s) Oral every day 09/07/20 19 2019 Inactive Sudafed 12 Hour 120 mg tablet,extended release RxNorm: 4256624 1 Tablet(s) Oral every 12 hours as needed 09/04/20 2018 Inactive pantoprazole 40 mg tablet,delayed release RxNorm: 926811 1 Tablet(s) Oral every day 08/24/20 19 2018 Inactive discontinue any other H2Blkr. and PPI albuterol sulfate 2.5 mg/3 mL (0.083 %) solution for nebulization RxNorm: 179719 1 Vial Inhalation every four hours as needed as needed for dyspnea 08/17/20 19 2019 Inactive 60/box. This refill negates all other refills of this medication. Please do not fill early. Please do not auto refill. Symbicort 160 mcg-4.5 mcg/actuation HFA aerosol inhaler RxNorm: 1094585 2 Puff(s) INH BID 08/17/20 No Stop Date Active Alcohol Prep Pads RxNorm: 632235 1 Patch TOP QAM 08/17/20 19 2019 Inactive True Metrix Glucose Test Strip RxNorm: 1 Test Strips Miscellaneous QAM 08/09/20 19 2019 Inactive 100/container Ventolin HFA 90 mcg/actuation aerosol inhaler RxNorm: 489725 2 Puff(s) INH QID 08/09/20 19 2019 Inactive Please do not fill early. Please do not auto refill. This refill negates all other refills of this medication atorvastatin 40 mg tablet RxNorm: 366676 1 Tablet(s) Oral every day 07/04/20 19 2019 Inactive levmetamfetamine 50 mg nasal inhaler RxNorm: 1 Unit(s) NASAL Q3-4H Do not use more than every 3 hours or 8 times/24hours 06/26/20 19 2021 Inactive Please do not auto refill. This refill negates all other refills of this medication diclofenac sodium 75 mg tablet,delayed release RxNorm: 108964 1 Tablet(s) PO BID 06/26/20 19 2019 Inactive This refill negates all other refills of this medication buspirone 7.5 mg tablet RxNorm: 633986 1 Tablet(s) PO BID 06/26/20 19 2020 Inactive This refill negates all other refills of this medication hydrochlorothiazide 12.5 mg tablet RxNorm: 072795 1 Tablet(s) PO QAM 06/26/20 19 2019 Inactive Ventolin HFA 90 mcg/actuation aerosol inhaler RxNorm: 628545 2 Puff(s) INH QID 06/26/20 19 2018 Inactive Please do not fill early. Please do not auto refill. This refill negates all other refills of this medication Singulair 10 mg tablet RxNorm: 010717 1 Tablet(s) PO daily 06/26/20 19 2019 Inactive This refill negates all other refills of this medication cetirizine 10 mg tablet RxNorm: 5294938 1 Tablet(s) PO daily 06/26/202019 Inactive This refill negates all other refills of this medication. Please do not auto refill levothyroxine 50 mcg tablet RxNorm: 134014 1 Tablet(s) PO daily 06/26/20 19 2019 Inactive This refill negates all other refills of this medication ranitidine 150 mg tablet RxNorm: 516489 1 Tablet(s) PO BID 06/26/20 19 2018 Inactive This refill negates all other refills of this medication Calcium 600-D3 Plus (mag-zinc) 600 mg calcium-800 unit-50 mg tablet RxNorm: 1 Tablet(s) PO daily take an additonal tablet for itching. 06/26/20 19 2018 Inactive This refill negates all other refills of this medication albuterol sulfate 2.5 mg/3 mL (0.083 %) solution for nebulization RxNorm: 024418 1 Vial INH QID 06/26/20 19 2018 Inactive 60/box. This refill negates all other refills of this medication. Please do not fill early. Please do not auto refill. lisinopril 2.5 mg tablet RxNorm: 002409 1 Tablet(s) PO daily 06/21/20 19 2019 Inactive gabapentin 300 mg capsule RxNorm: 352243 1 Capsule(s) PO TID 06/21/20 19 2019 Inactive atorvastatin 20 mg tablet RxNorm: 405276 1 Tablet(s) PO QHS 06/07/20 19 2018 Inactive This refill negates all other refills of this medication TRUEplus Lancets 30 gauge RxNorm: 1 Lancets Miscellaneous QAM 05/29/20 19 2018 Inactive 100/box gabapentin 300 mg capsule RxNorm: 722511 1 Capsule(s) PO TID 05/03/20 19 2018 Inactive Flintstones Complete (iron) 18 mg iron chewable tablet RxNorm: 1 Tablet(s) PO daily 04/04/20 19 2021 Inactive This refill negates all other refills of this medication gabapentin 300 mg capsule RxNorm: 630898 1 Capsule(s) PO TID as needed 02/01/20 19 2018 Inactive True Metrix Glucose Test Strip RxNorm: 1 Test Strips Miscellaneous QAM 02/01/20 19 2018 Inactive 100/container Alcohol Prep Pads RxNorm: 325842 1 Patch TOP QAM 02/01/20 19 2018 Inactive TRUEplus Lancets 30 gauge RxNorm: 1 Lancets Miscellaneous QAM 02/01/20 19 2018 Inactive 100/box lisinopril 2.5 mg tablet RxNorm: 637279 1 Tablet(s) PO daily 12/28/19 19 2018 Inactive ranitidine 150 mg tablet RxNorm: 534319 1 Tablet(s) PO BID 10/21/19 19 2018 Inactive This refill negates all other refills of this medication albuterol sulfate 2.5 mg/3 mL (0.083 %) solution for nebulization RxNorm: 924778 1 Vial INH QID 10/21/19 19 2018 [...] this medication gabapentin 300 mg capsule RxNorm: 476324 1 Capsule(s) PO TID as needed 10/21/19 19 2018 Inactive atorvastatin 20 mg tablet RxNorm: 433066 1 Tablet(s) PO QHS 10/21/19 19 2018 Inactive This refill negates all other refills of this medication trazodone 50 mg tablet RxNorm: 486851 1 Tablet(s) PO QHS 10/21/19 19 2018 Inactive This refill negates all other refills of this medication Ventolin HFA 90 mcg/actuation aerosol inhaler RxNorm: 072404 2 Puff(s) INH QID 10/21/19 19 2018 Inactive Please do not fill early. Please do not auto refill. This refill negates all other refills of this medication Calcium 600-D3 Plus 600 mg calcium-800 unit-50 mg tablet RxNorm: 1 Tablet(s) PO daily take an additonal tablet for itching. 10/21/192018 Inactive This refill negates all other refills of this medication Singulair 10 mg tablet RxNorm: 130820 1 Tablet(s) PO daily 10/21/19 19 2018 Inactive This refill negates all other refills of this medication buspirone 7.5 mg tablet RxNorm: 255860 1 Tablet(s) PO BID 10/21/192018 Inactive This refill negates all other refills of this medication diclofenac sodium 75 mg tablet,delayed release RxNorm: 891082 1 Tablet(s) PO BID 10/21/19 19 2018 Inactive This refill negates all other refills of this medication hydrochlorothiazide 12.5 mg tablet RxNorm: 777532 1 Tablet(s) PO QAM 10/21/19 19 2018 Inactive metoprolol succinate ER 50 mg tablet,extended release 24 hr RxNorm: 858398 1 Tablet(s) PO daily 10/21/192018 Inactive This refill negates all other refills of this medication levothyroxine 50 mcg tablet RxNorm: 431488 1 Tablet(s) PO daily 10/21/192018 Inactive This refill negates all other refills of this medication cetirizine 10 mg tablet RxNorm: 5527370 1 Tablet(s) PO daily 10/21/19 19 2018 Inactive This refill negates all other refills of this medication. Please do not auto refill Flintstones Complete (iron) 18 mg iron chewable tablet RxNorm: 1 Tablet(s) PO daily 10/21/19 19 2018 Inactive This refill negates all other refills of this medication buspirone 7.5 mg tablet RxNorm: 616166 1 Tablet(s) PO BID 10/12/19 19 2018 Inactive cetirizine 10 mg tablet RxNorm: 5226000 1 Tablet(s) PO daily 09/28/20 18 2018 Inactive Guaiasorb DM 10 mg-100 mg/5 mL oral liquid RxNorm: 093287 10 Milliliter(s) PO As needed every 4 hr 09/24/20 18 2018 Inactive Vicks Vaporub 4.7 %-1.2 %-2.6 % topical ointment RxNorm: 5871706 1 Application TOP TID 09/24/20 18 2018 Inactive levmetamfetamine 50 mg nasal inhaler RxNorm: 1 Unit(s) NASAL Q3-4H 09/24/20 18 2017 Inactive sertraline 50 mg tablet RxNorm: 496974 1 Tablet(s) PO daily 09/09/20 18 2018 Inactive Please note dose trazodone 50 mg tablet RxNorm: 600414 1 Tablet(s) PO QHS 09/06/20 18 2018 Inactive sertraline 50 mg tablet RxNorm: 159159 1 Tablet(s) PO daily 09/06/20 18 2017 Inactive amoxicillin 500 mg tablet RxNorm: 278216 1 Tablet(s) PO Q12H 08/31/20 18 2017 Inactive albuterol sulfate 2.5 mg/3 mL (0.083 %) solution for nebulization RxNorm: 452874 1 Vial INH QID 08/10/20 18 2018 Inactive 60/box. Please do not fill early. Please do not auto refill. Prozac 10 mg capsule RxNorm: 757666 1 Capsule(s) PO daily 08/09/20 18 2017 Inactive buspirone 7.5 mg tablet RxNorm: 937676 1 Tablet(s) PO BID 08/09/20 18 2018 Inactive gabapentin 300 mg capsule RxNorm: 376929 1 Capsule(s) PO TID as needed 08/01/20 18 2018 Inactive hydrochlorothiazide 12.5 mg tablet RxNorm: 473026 1 Tablet(s) PO QAM 08/01/20 18 2018 Inactive ranitidine 150 mg tablet RxNorm: 091474 1 Tablet(s) PO BID 08/01/20 18 2018 Inactive Macrobid 100 mg capsule RxNorm: 190067 1 Capsule(s) PO Q12H 06/21/20 18 2017 Inactive Singulair 10 mg tablet RxNorm: 679211 1 Tablet(s) PO daily 06/14/20 18 2018 Inactive Ventolin HFA 90 mcg/actuation aerosol inhaler RxNorm: 2146823 2 Puff(s) INH QID 06/14/20 18 2018 Inactive Singulair 10 mg tablet RxNorm: 853582 1 Tablet(s) PO daily 06/14/20 18 2017 Inactive buspirone 7.5 mg tablet RxNorm: 225088 1 Tablet(s) PO BID 06/14/20 18 2017 Inactive Prozac 10 mg capsule RxNorm: 608481 1 Capsule(s) PO daily 06/14/20 18 2017 Inactive Neilmed Pediatric Sinus Rinse Refill packet RxNorm: 1 Unit Dose NASAL PRN 05/31/20 18 2021 Inactive diclofenac sodium 75 mg tablet,delayed release RxNorm: 594993 1 Tablet(s) PO BID 05/31/20 18 2017 Inactive lisinopril 2.5 mg tablet RxNorm: 141649 1 Tablet(s) PO daily 05/31/20 18 2017 Inactive metoprolol succinate ER 50 mg tablet,extended release 24 hr RxNorm: 930165 1 Tablet(s) PO daily 05/31/20 18 2017 Inactive levothyroxine 50 mcg tablet RxNorm: 132292 1 Tablet(s) PO daily 05/31/20 18 2017 Inactive TRUEplus Lancets 30 gauge RxNorm: 1 Lancets Miscellaneous QAM 05/31/20 18 2017 Inactive 100/box Ventolin HFA 90 mcg/actuation aerosol inhaler RxNorm: 258850 2 Puff(s) INH QID 05/31/20 18 2017 Inactive Aleve 220 mg capsule RxNorm: 8728070 1 Capsule(s) PO BID 05/31/20 18 2018 Inactive ranitidine 150 mg tablet RxNorm: 599239 1 Tablet(s) PO BID 05/31/20 18 2017 Inactive gabapentin 300 mg capsule RxNorm: 529994 1 Capsule(s) PO TID as needed 05/31/20 18 2017 Inactive atorvastatin 20 mg tablet RxNorm: 723128 1 Tablet(s) PO QHS 05/31/20 18 2017 Inactive True Metrix Glucose Test Strip RxNorm: 1 Test Strips Miscellaneous QAM 05/31/20 18 2017 Inactive 50/container Calcium 600-D3 Plus 600 mg calcium-800 unit-50 mg tablet RxNorm: 1 Tablet(s) PO daily take an additonal tablet for itching. 05/31/20 18 2017 Inactive hydrochlorothiazide 12.5 mg tablet RxNorm: 551557 1 Tablet(s) PO QAM 05/31/20 18 2017 Inactive Flintstones Complete (iron) 18 mg iron chewable tablet RxNorm: 1 Tablet(s) PO daily 05/31/20 18 2017 Inactive d-mannose oral powder RxNorm: PO 18 2021 Inactive True Metrix Glucose Meter RxNorm: miscellaneous 08/17/20 19 2018 Inactive sertraline 50 mg tablet RxNorm: 615277 1 Tablet(s) PO daily 11/28/19 20 2019 Inactive loperamide 2 mg tablet RxNorm: 424495 oral 09/29/202018 Inactive Symbicort 160 mcg-4.5 mcg/actuation HFA aerosol inhaler RxNorm: 1218711 2 Puff(s) INH BID 08/17/20 19 2018 Inactive Medication Administered No Medication Administered data Procedures Procedure Codes Date Tobacco Assessment/Screening CPT-4: TCA Fall Risk Assessment SNOMED CT: 72634918 4 CPT-4: DFRA01/01/2020Functional AssessmentCPT-4: DFA01/01/2020Semmes Fany AssessmentCPT-4: DSWA11/28/2019Patient Health QuestionnaireCPT-4: DPHQ11/28/2019 Agra Fany AssessmentCPT-4: DSWA10/17/2019HypertensionCPT-4: HTN10/17/[address]: 550106835 CPT-4: DFRA09/19/2019Functional AssessmentCPT-4: DFA111/20/2018Urinalysis, dip stickCPT-4: 790328406/21/2019Tobacco Assessment/ScreeningCPT-4: TCA05/24/2019 Patient Health QuestionnaireCPT-4: DPHQ05/24/2019AHA/REBECCA Classification AssessmentCPT-4: DAHA04/25/2019Controlled Substance ReportCPT-4: CTRSU04/25/2019 Urinalysis, dip stickCPT-4: 715856103/28/2019Urinalysis, dip stickCPT-4: 09238 03/28/20197512Q0I-EvqjegvlzsartekRIG-3: 15594WibmuqdE9P-XtdiiecaypvsgdvPXE-7: [address]: 583246434 CPT-4: Z00Zchpoek Vital Signs Date Vital 02/14/2020 BMI: 54.5 Code: 04233-3 Height: 4'11 Code: 8302-2 Weight: 270 lbs Code: 78001-7 Reason For Visit Reason For Visit Effective Dates Notes hypertension 02/14/2020 diabetes mellitus 02/14/2020 Interim health update 02/14/2020 Encounters Encounter Performer Location Location Address Codes Magdi e ([id number]) (EST PT) [place] [place] F[facility]USED TELEHE[facility] VISIT Diagnosis: Type 2 diabetes mellitus with peripheral neuropathy[ICD10: E11.42] Diagnosis: Essential (primary) hypertension[ICD10: I10] Diagnosis: Abrasion of toe[ICD10: S90.416A] Diagnosis: Encounter for screening for malignant neoplasm of cervix[ICD10: Z12.4] Diagnosis: Obstructive sleep apnea (adult) (pediatric)[ICD10: G47.33]Anna Friedmanariane [address] [place] [address] CPT-4: 0592225 Plan of Care Planned Activity Notes Codes Status Date Visit Plan: patient with I phone able to participate in visual and audio telehealth visit S90.416A-917.0 Abrasion of toe caused by toe rubbing on flip flop advised to monitor due to risk of complications secondary to DM and parathesis R55-780.2 Syncope and collapse denies any recent episodes advise to check BS when feeling light headed E11.42-250.60 Type 2 diabetes mellitus with peripheral neuropathy tries to keep BS around 90-varied times of the day, had to reset smart phone julianna so only has a couple readings, both under 110 10/17/2019 Hemoglobin A1C 6.0 07/04/2019 Hgb A1C 5.6 10/17/2019 Agra Fany 7/10-instructed on good daily foot care routine follow up with Dr. Gonzales, podiatry-diabetic shoe received ophthalmology confirms visit, but doesn't remember when 01/01/2020 FRA complete denies fall 01/01/2020 Functional Assessment complete I10-401.9 Essential (primary) hypertension I11.0-402.91 Hypertensive heart disease with heart failure has accessto BP monitor, request she obtain BP prior to next visit if still telephonic cont hctz 10/17/2019 HTN assessment, encourage lifestyle modifications, exercise, weight loss, and limiting fried and greasy foods, 10/17/2019 GFR 90 N18.9-585.9 Chronic kidney disease, unspecified avoid nephro toxic drugs, 07/04/2019 BUN 17 creatinine 0.7 GFR 93 Patient denies ability to drink water stating that it dehydrates her- doesn't know diagnosis,but indicates she was told this by previous urologist urology next appointment 02/21/2020 G47.33-327.23 Obstructive sleep apnea (adult) (pediatric) J45.909-493.90 Asthma Recent ED visit for difficulty breathing-records requested continue inhalers and nebulizer wears cpap every night, believes that is helpful Dr. Garcia, pulmonology for chronicsleep apnea and asthma-audio visit last week Cpap pressure setting increased to 12-request records F43.23-309.28 Adjustment disorder with mixed anxiety and depressed mood routine follow up [facility] E03.9-244.9 Hypothyroidism, unspecified cont levothyroxine N39.46-788.33 Mixed incontinence use of incontinence supplies Z68.43-V85.43 Adult BMI 50.0-59.9 kg/sq m Mirror Department Supervisor to visit to discuss portion control trying to avoid soda, drinking sparkling flavored pal and occasional Heike Green Tea and honey Z12.4-V76.2 Encounter for screening for malignant neoplasm of cervix last [id number] will request records Z01.89-V72.85 Encounter for screening for tobacco use Tobacco screen complete-patient denies ever smoking *I reviewed the most recent CDC guidelines regarding Covid- 19/Coronavirus with the patient/caregiver/designee during a telephonic visit today. Specific topicsreviewed were: ??? Proper handwashing technique and frequency ??? Practicing appropriate Social Distancing/isolation ??? Limiting face touching ??? Proper sanitization of high contact areas in their environment ??? Reporting procedures if symptoms/exposure occur ??? Known Coronavirus transmission modalities ??? Common symptoms of Covid-19 disease ??? Known high risk populations for developing severe/fatal infections ??? Covid-19 disease transmission from asymptomatic carriers *The person telephonically contacted during this visit verbalized understanding of all above topics. 02/14/2020Patient Education: Patient Medication NugmmlcShqatfwzb08/14/2020 Patient Education: CgrugtzfpggvUpcikyfvf35/14/2020Patient Education: Diabetes Uaptbadye10/14/2020Appointment: Anna Culver WPtel: [address] [place] [address] [id number]: Anna Culver WPtel: [address] [address] [id number]: Anna Culver WPtel: [address] [place] [address] [place] [address] [id number]: Anna Culver WPtel: [address] [place] [address] [id number]: Anna Culver WPtel: [address] [place] [address] [id number]: Sudha Hernadez WPtel: [address] [facility] [place] [address] [id number]: Sudha Hernadez WPtel: [address] [facility] [place] [id number]: Charlene Oropeza WPtel: [address] [facility] [place] [id number]: Bianca DelgadoUgqfsxW86859/26/2019Appointment: Charlene Oropeza WPtel: [address] [facility] [place] [id number]: Haupricht, Rasta WPtel: [address] [facility] [place] [address] [id number]: Haupricht, Rasta WPtel: [address] [facility] [place] [address] [id number]: Haupricht, Rasta WPtel: [address] [facility] [place] [address] [id number]: Haupricht, Rasta WPtel: [address] [facility] [place] [address] [id number]: Pending Gynecology Referral InformationReferral ProcessedReferral: Pending Pulmonology Referral InformationReferralProcessed Referral: Pending Psychiatry Referral InformationReferralInitiatedReferral: Pending Respiratory Services Referral InformationReferralInitiatedReferral: Pending Ophthalmology Referral InformationReferralInitiatedReferral: [facility] WPtel: [address] [facility] [address] [facility] [id number] USWriter placed a call out to the patient to notify her that it has been recommended that she be seenby 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 Patient agreed to be seen, does not have a provider of choice and no transportationissues. Broom Worker faxed referral and clinical notes to [facility] in [place], [place] near the patient's home. Patient to [...] seen and prefers a provider in the [place] or [place] area. Broom Worker placed a call out to everyone listed in the area and the only location that was able to accept the patient's insurance was [address] [id number] and spoke with Maylin. Maylin asked that the patient's referral, face sheet and visit notes be faxed to . Broom Worker faxed over requested documents. Patient appointment confirmation letter generated and mailed to her home address. Patient to call to schedule an appointment.ProcessedReferral: [facility] WPtel: [address] [facility] [address] [id number] USPatient notified that it has been advised that she be seen by Neurology. Patient agreed to be seen and prefers to be seen by a provider in the [place], [place] area. Patient denies any concerns with transportation, and prefers to schedule her own appointment. Broom Worker placed a call out to [facility] and spoke with Neeraj P: [...] Podiatry Referral InformationReferralInitiated Instructions Comment Date . patient with I phone able to participate in visual and audio telehealth visit [id number] Abrasion of toe caused by toe rubbing on flip flop advised to monitor due to risk of complications secondary to DM and parathesis R55-780.2 Syncope and collapse denies any recent episodes advise to check BS when feeling light headed E11.42-250.60 Type 2 diabetes mellitus with peripheral neuropathy tries to keep BS around 90-varied times of the day, had to reset smart phone julianna so only has a couple readings, both under 110 10/17/2019 Hemoglobin A1C 6.0; 07/04/2019 Hgb A1C 5.6 10/17/2019 Inocente Soares 7/10-instructed on good daily foot care routine follow up with Dr. Gonzales, podiatry-diabetic shoe received ophthalmology confirms visit, but doesn't remember when 01/01/2020 FRA complete denies fall 01/01/2020 Functional Assessment complete I10-401.9 Essential (primary) hypertension I11.0-402.91 Hypertensive heart disease with heart failure has access to BP monitor, request she obtain BP prior to next visit if still telephonic cont hctz 10/17/2019 HTN assessment, encourage lifestyle modifications, exercise, weight loss, and limiting fried and greasy foods, 10/17/2019 GFR 90 N18.9-585.9 Chronic kidney disease, unspecified avoid nephro toxic drugs, 07/04/2019 BUN 17; creatinine 0.7; GFR 93 Patient denies ability to drink water stating that it dehydrates her-doesn't know diagnosis, but indicates she was told this by previous urologist urology next appointment 02/21/2020 G47.33-327.23 Obstructive sleep apnea (adult) (pediatric); J45.909-493.90 Asthma Recent ED visit for difficulty breathing-records requested continue inhalers and nebulizer wears cpap every night, believes that is helpful Dr. Garcia, pulmonology for chronic sleep apnea and asthma-audio visit last week Cpap pressure setting increased to 12-request records F43.23-309.28 Adjustment disorder with mixed anxiety and depressed mood routine follow up [facility] E03.9-244.9 Hypothyroidism, unspecified cont levothyroxine N39.46-788.33 Mixed incontinence use of incontinence supplies Z68.43-V85.43 Adult BMI 50.0-59.9 kg/sq m [employer] Supervisor to visit to discuss portion control trying to avoid soda, drinking sparkling flavored pal and occasional Heike Green Tea and honey Z12.4-V76.2 Encounter for screening for malignant neoplasm of cervix last pap 2019 will request records Z01.89-V72.85 Encounter for screening for tobacco use Tobacco screen complete-patient denies ever smoking *I reviewed the most recent CDC guidelines regarding Covid-19/Coronavirus with the patient/caregiver/designee during a telephonic visit today. Specific topics reviewed were: ??? Proper handwashing [...] disease transmission from asymptomatic carriers *The person telephonically contacted during this visit verbalized understanding of all above topics. 02/14/2020 Medical Equipment No Medical Equipment data Advance Directives No Advance Directive data
--- OUTSIDE RECORDS SUMMARY | 2023-12-07 02:11 | XMS_ITS | CCD ---
Author Name Leena Culver NP Address [address] [place] [address] [place] [address] Phone Organization [facility] Phone Care Team Providers Care Travel Ticketing Reviewer Name Role Phone Anna Culver NP Primary Care Provider Unav ailable Unavailable Chronic Care Management Unavaila ble Summary Purpose DataExchange Insurance Providers Payer name Policy type / Coverage type Covered republican ID Effective Begin Date Effective End Date SUKI MAYO [id number] Unknown Unknown Family history Mother Diagnosis Age [...] 05/31/2018 Education level Unknown Some High School 10th05/31/20181075EggeklgernCtlzromEittxqvuvr60/29/2018Tobacco historySNOMED CT: 815836376Xfn never smoked or chewed zsmbegv7605/31/2018Alcohol historySNOMED CT: 313274140Btavu drinks twmojml4205/31/2018Has the patient ever used illegal drugs? UnknownHas never used illegal drugs05/31/2018DNR Order/ Advanced Directive UnknownFull Code05/31/2018 Allergies, Adverse Reactions, Alerts Substance Reaction Codes Entered Date Inactivated Date Status *No known food allergies Muwluzy2109/06/2018No Inactive DateActiveMethylprednisolonehivesRxNorm: 6902 09/06/2018No Inactive DateActive Problems Condition Codes Effective Dates Condition St atus Adult BMI 50.0-59.9 kg/sq m ICD-10: Z68. 43 ICD-9: V85.43005/30/2018ActiveEssential (primary) hypertensionICD-10: I10 ICD-9: 401.901/10/2018ActiveAbrasion of toeICD-10: S90.416A ICD-9: 917.005ActiveEncounter for screening for malignant neoplasm of cervixICD-10: Z12.4 ICD-9: V76.207/ActiveObstructive sleep apnea (adult) (pediatric)ICD-10: G47.33 ICD-9: 327.2309/ActiveType 2 diabetes mellitus with peripheral neuropathy ICD-10: E11.42 ICD-9: 250.6002/ActiveEncounter for screening for tobacco useICD-10: Z01.89 ICD-9: V72.8503ActivePink eyeICD-10: H10.029 ICD-9: 372.0303/ActiveSyncope and collapseICD-10: R55 ICD-9: 780.203ActiveFecal incontinenceICD-10: R15.9 ICD-9: 787.6003/ActiveMixed incontinenceICD-10: N39.46 ICD-9: 788.3308ActiveDiarrheaICD-10: R19.7 ICD-9: 787.9112ActiveAdjustment [...] ICD-9: 356.908/ActivePatient Not SeenICD-10: UXZ.01 ICD-9: XZ0.107ActiveOther shot polisher and inspector (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ICD-10: Z79.899 ICD-9: V58.6907ActiveChest pain, [...] 12 Hour 120 mg tablet,extended release RxNorm: 6361903 TAKE 1 TABLET BY MOUTH EVERY 12 HOURS NEEDED 03/14/20 20 2019 Inactive True Metrix Glucose Test Strip RxNorm: 1 Test Strips Miscellaneous every morning 03/13/20 20 2019 Inactive 100/container loperamide 2 mg tablet RxNorm: 304848 1 Tablet(s) Oral as needed take one tablet after each loose stool, maximum of 8 tablets in 24 hours 02/22/20 20 2019 Inactive True Metrix Glucose Test Strip RxNorm: 1 Test Strips Miscellaneous QAM 02/22/20 20 2019 Inactive 100/container cetirizine 10 mg tablet RxNorm: 6653890 1 Tablet(s) PO daily 01/17/20 20 2019 Inactive levothyroxine 50 mcg tablet RxNorm: 687461 1 Tablet(s) PO daily 01/17/20 20 2020 Inactive gabapentin 300 mg capsule RxNorm: 418091 1 Capsule(s) PO TID 01/17/20 20 2019 Inactive loperamide 2 mg tablet RxNorm: 733579 1 Tablet(s) Oral as needed take one tablet after each loose stool, maximum of 8 tablets in 24 hours 01/17/20 20 2019 Inactive quetiapine 100 mg tablet RxNorm: 086923 1 Tablet(s) Oral every night at bedtime 01/17/20 20 2019 Inactive lisinopril 2.5 mg tablet RxNorm: 668438 1 Tablet(s) PO daily 01/15/20 20 2020 Inactive Singulair 10 mg tablet RxNorm: 782241 1 Tablet(s) PO daily 01/15/20 20 2020 Inactive levothyroxine 50 mcg tablet RxNorm: 068448 1 Tablet(s) PO daily 01/15/20 20 2019 Inactive gabapentin 300 mg capsule RxNorm: 210930 1 Capsule(s) PO TID 01/15/20 20 2019 Inactive cetirizine 10 mg tablet RxNorm: 1280408 1 Tablet(s) PO daily 01/15/20 20 2019 Inactive gentamicin 0.3 % eye drops RxNorm: 156971 1 Drop(s) ophthalmic (eye) four times a day 12/29/19 20 2019 Inactive gentamicin 0.3 % eye drops RxNorm: 396455 1 Drop(s) ophthalmic (eye) four times a day 12/29/19 20 2019 Inactive gentamicin 0.3 % eye drops RxNorm: 995648 1 Drop(s) ophthalmic (eye) four times a day 12/29/19 20 2019 Inactive hydrochlorothiazide 25 mg tablet RxNorm: 578972 1 Tablet(s) Oral every day 12/21/19 20 2019 Inactive Sudafed 12 Hour 120 mg tablet,extended release RxNorm: 9438650 TAKE (1) TABLET BY MOUTH EVERY 12 HOURS NEEDED 12/21/19 20 2019 Inactive loperamide 2 mg tablet RxNorm: 594934 1 Tablet(s) Oral as needed take one tablet after each loose stool, maximum of 8 tablets in 24 hours 12/11/19 20 2019 Inactive loperamide 2 mg tablet RxNorm: 694492 1 Tablet(s) Oral as needed take one tablet after each loose stool, maximum of 8 tablets in 24 hours 12/11/19 20 2019 Inactive atorvastatin 40 mg tablet RxNorm: 303151 1 Tablet(s) Oral every day 11/29/19 20 2020 Inactive sertraline 100 mg tablet RxNorm: 323894 1 Tablet(s) Oral 11/28/19 20 2019 Inactive quetiapine 100 mg tablet RxNorm: 315314 1 Tablet(s) Oral every night at bedtime 11/28/19 20 2019 Inactive omeprazole 20 mg capsule,delayed release RxNorm: 282348 1 Capsule(s) Oral every day 11/20/19 20 2019 Inactive amoxicillin 250 mg capsule RxNorm: 943700 1 Capsule(s) Oral three times a day 11/07/19 20 2019 Inactive multivitamin with iron-mineral tablet RxNorm: 1 Tablet(s) Oral every day 10/29/19 20 2021 Inactive cetirizine 10 mg tablet RxNorm: 1782632 1 Tablet(s) PO daily 10/20/19 20 2019 Inactive This refill negates all other refills of this medication. Please do not auto refill Singulair 10 mg tablet RxNorm: 227723 1 Tablet(s) PO daily 10/20/192019 Inactive This refill negates all other refills of this medication gabapentin 300 mg capsule RxNorm: 010095 1 Capsule(s) PO TID 10/20/192019 Inactive lisinopril 2.5 mg tablet RxNorm: 917367 1 Tablet(s) PO daily 10/20/19 20 2019 Inactive levothyroxine 50 mcg tablet RxNorm: 509037 1 Tablet(s) PO daily 10/20/192019 Inactive This refill negates all other refills of this medication fenugreek seed extract 500 mg capsule RxNorm: 1 Capsule(s) Oral three times a day 10/17/19 20 2021 Inactive hydrochlorothiazide 25 mg tablet RxNorm: 436532 1 Tablet(s) Oral every day 10/17/19 20 2019 Inactive Alcohol Prep Pads RxNorm: 817891 1 Patch TOP QAM 10/16/19 20 2020 Inactive loperamide 2 mg tablet RxNorm: 999036 1 Tablet(s) Oral as needed take one [...] 2019 Inactive hydrochlorothiazide 25 mg tablet RxNorm: 242321 1 Tablet(s) Oral every day 09/19/20 19 2019 Inactive Sudafed 12 Hour 120 mg tablet,extended release RxNorm: 0241617 1 Tablet(s) Oral every 12 hours as needed 09/11/20 19 2018 Inactive omeprazole 20 mg capsule,delayed release RxNorm: 511716 1 Capsule(s) Oral every day 09/07/20 19 2019 Inactive Sudafed 12 Hour 120 mg tablet,extended release RxNorm: 3637254 1 Tablet(s) Oral every 12 hours as needed 09/04/20 19 2018 Inactive pantoprazole 40 mg tablet,delayed release RxNorm: 886088 1 Tablet(s) Oral every day 08/24/202018 Inactive discontinue any other H2Blkr. and PPI albuterol sulfate 2.5 mg/3 mL (0.083 %) solution for nebulization RxNorm: 971073 1 Vial Inhalation every four hours as needed as needed for dyspnea 08/17/20 19 2019 Inactive 60/box. This refill negates all other refills of this medication. Please do not fill early. Please do not auto refill. Symbicort 160 mcg-4.5 mcg/actuation HFA aerosol inhaler RxNorm: 1279711 2 Puff(s) INH BID 08/17/20 19 No Stop Date Active Alcohol Prep Pads RxNorm: 846950 1 Patch TOP QAM 08/17/20 19 2019 Inactive Ventolin HFA 90 mcg/actuation aerosol inhaler RxNorm: 956327 2 Puff(s) INH QID 08/09/20 19 2019 Inactive Please do not fill early. Please do not auto refill. This refill negates all other refills of this medication True Metrix Glucose Test Strip RxNorm: 1 Test Strips Miscellaneous QAM 08/09/20 19 2019 Inactive 100/container atorvastatin 40 mg tablet RxNorm: 300670 1 Tablet(s) Oral every day 07/04/20 19 2019 Inactive levmetamfetamine 50 mg nasal inhaler RxNorm: 1 Unit(s) NASAL Q3-4H Do not use more than every 3 hours or 8 times/24hours 06/26/20 19 2021 Inactive Please do not auto refill. This refill negates all other refills of this medication diclofenac sodium 75 mg tablet,delayed release RxNorm: 514666 1 Tablet(s) PO BID 06/26/20 19 2019 Inactive This refill negates all other refills of this medication buspirone 7.5 mg tablet RxNorm: 386884 1 Tablet(s) PO BID 06/26/20 19 2020 Inactive This refill negates all other refills of this medication hydrochlorothiazide 12.5 mg tablet RxNorm: 343436 1 Tablet(s) PO QAM 06/26/20 19 2019 Inactive Ventolin HFA 90 mcg/actuation aerosol inhaler RxNorm: 480128 2 Puff(s) INH QID 06/26/20 19 2018 Inactive Please do not fill early. Please do not auto refill. This refill negates all other refills of this medication Singulair 10 mg tablet RxNorm: 519446 1 Tablet(s) PO daily 06/26/20 19 2019 Inactive This refill negates all other refills of this medication cetirizine 10 mg tablet RxNorm: 1582258 1 Tablet(s) PO daily 06/26/20 19 2019 Inactive This refill negates all other refills of this medication. Please do not auto refill levothyroxine 50 mcg tablet RxNorm: 948569 1 Tablet(s) PO daily 06/26/20 19 2019 Inactive This refill negates all other refills of this medication ranitidine 150 mg tablet RxNorm: 863553 1 Tablet(s) PO BID 06/26/20 19 2018 Inactive This refill negates all other refills of this medication Calcium 600-D3 Plus (mag-zinc) 600 mg calcium-800 unit-50 mg tablet RxNorm: 1 Tablet(s) PO daily take an additonal tablet for itching. 06/26/20 19 2018 Inactive This refill negates all other refills of this medication albuterol sulfate 2.5 mg/3 mL (0.083 %) solution for nebulization RxNorm: 110714 1 Vial INH QID 06/26/20 19 2018 Inactive 60/box. This refill negates all other refills of this medication. Please do not fill early. Please do not auto refill. lisinopril 2.5 mg tablet RxNorm: 746238 1 Tablet(s) PO daily 06/21/20 19 2019 Inactive gabapentin 300 mg capsule RxNorm: 781264 1 Capsule(s) PO TID 06/21/20 19 2019 Inactive atorvastatin 20 mg tablet RxNorm: 519108 1 Tablet(s) PO QHS 06/07/202018 Inactive This refill negates all other refills of this medication TRUEplus Lancets 30 gauge RxNorm: 1 Lancets Miscellaneous QAM 05/29/20 19 2018 Inactive 100/box gabapentin 300 mg capsule RxNorm: 701111 1 Capsule(s) PO TID 05/03/20 19 2018 Inactive Flintstones Complete (iron) 18 mg iron chewable tablet RxNorm: 1 Tablet(s) PO daily 04/04/20 19 2021 Inactive This refill negates all other refills of this medication gabapentin 300 mg capsule RxNorm: 157914 1 Capsule(s) PO TID as needed 02/01/202018 Inactive True Metrix Glucose Test Strip RxNorm: 1 Test Strips Miscellaneous [facility] 02/01/20 19 2018 Inactive 100/container Alcohol Prep Pads RxNorm: 416416 1 Patch TOP QA 02/01/20 19 2018 Inactive TRUEplus Lancets 30 gauge RxNorm: 1 Lancets Miscellaneous QAM 02/01/20 19 2018 Inactive 100/box lisinopril 2.5 mg tablet RxNorm: 865969 1 Tablet(s) PO daily 12/28/19 19 2018 Inactive ranitidine 150 mg tablet RxNorm: 290529 1 Tablet(s) PO BID 10/21/19 19 2018 Inactive This refill negates all other refills of this medication albuterol sulfate 2.5 mg/3 mL (0.083 %) solution for nebulization RxNorm: 522964 1 Vial INH QID 10/21/19 19 2018 [...] this medication gabapentin 300 mg capsule RxNorm: 565375 1 Capsule(s) PO TID as needed 10/21/19 19 2018 Inactive atorvastatin 20 mg tablet RxNorm: 602497 1 Tablet(s) PO QHS 10/21/192018 Inactive This refill negates all other refills of this medication trazodone 50 mg tablet RxNorm: 987629 1 Tablet(s) PO QHS 10/21/192018 Inactive This refill negates all other refills of this medication Ventolin HFA 90 mcg/actuation aerosol inhaler RxNorm: 989091 2 Puff(s) INH QID 10/21/192018 Inactive Please do not fill early. Please do not auto refill. This refill negates all other refills of this medication Calcium 600-D3 Plus 600 mg calcium-800 unit-50 mg tablet RxNorm: 1 Tablet(s) PO daily take an additonal tablet for itching. 10/21/192018 Inactive This refill negates all other refills of this medication Singulair 10 mg tablet RxNorm: 764684 1 Tablet(s) PO daily 10/21/192018 Inactive This refill negates all other refills of this medication buspirone 7.5 mg tablet RxNorm: 184701 1 Tablet(s) PO BID 10/21/192018 Inactive This refill negates all other refills of this medication diclofenac sodium 75 mg tablet,delayed release RxNorm: 240776 1 Tablet(s) PO BID 10/21/19 19 2018 Inactive This refill negates all other refills of this medication hydrochlorothiazide 12.5 mg tablet RxNorm: 092210 1 Tablet(s) PO QAM 10/21/19 19 2018 Inactive metoprolol succinate ER 50 mg tablet,extended release 24 hr RxNorm: 712675 1 Tablet(s) PO daily 10/21/19 19 2018 Inactive This refill negates all other refills of this medication levothyroxine 50 mcg tablet RxNorm: 549151 1 Tablet(s) PO daily 10/21/19 19 2018 Inactive This refill negates all other refills of this medication cetirizine 10 mg tablet RxNorm: 6508591 1 Tablet(s) PO daily 10/21/19 19 2018 Inactive This refill negates all other refills of this medication. Please do not auto refill Flintstones Complete (iron) 18 mg iron chewable tablet RxNorm: 1 Tablet(s) PO daily 10/21/19 19 2018 Inactive This refill negates all other refills of this medication buspirone 7.5 mg tablet RxNorm: 400351 1 Tablet(s) PO BID 10/12/192018 Inactive cetirizine 10 mg tablet RxNorm: 4067631 1 Tablet(s) PO daily 09/28/20 18 2018 Inactive Guaiasorb DM 10 mg-100 mg/5 mL oral liquid RxNorm: 514719 10 Milliliter(s) PO As needed every 4 hr 09/24/202018 Inactive Vicks Vaporub 4.7 %-1.2 %-2.6 % topical ointment RxNorm: 4668261 1 Application TOP TID 09/24/20 18 2018 Inactive levmetamfetamine 50 mg nasal inhaler RxNorm: 1 Unit(s) NASAL Q3-4H 09/24/20 18 2017 Inactive sertraline 50 mg tablet RxNorm: 985614 1 Tablet(s) PO daily 09/09/20 18 2018 Inactive Please note dose trazodone 50 mg tablet RxNorm: 325661 1 Tablet(s) PO QHS 09/06/20 18 2018 Inactive sertraline 50 mg tablet RxNorm: 089581 1 Tablet(s) PO daily 09/06/20 18 2017 Inactive amoxicillin 500 mg tablet RxNorm: 200034 1 Tablet(s) PO Q12H 08/31/20 18 2017 Inactive albuterol sulfate 2.5 mg/3 mL (0.083 %) solution for nebulization RxNorm: 656931 1 Vial INH QID 08/10/20 18 2018 Inactive 60/box. Please do not fill early. Please do not auto refill. Prozac 10 mg capsule RxNorm: 071188 1 Capsule(s) PO daily 08/09/20 18 2017 Inactive buspirone 7.5 mg tablet RxNorm: 331773 1 Tablet(s) PO BID 08/09/20 18 2018 Inactive gabapentin 300 mg capsule RxNorm: 443876 1 Capsule(s) PO TID as needed 08/01/20 18 2018 Inactive hydrochlorothiazide 12.5 mg tablet RxNorm: 505978 1 Tablet(s) PO QAM 08/01/20 18 2018 Inactive ranitidine 150 mg tablet RxNorm: 974923 1 Tablet(s) PO BID 08/01/20 18 2018 Inactive Macrobid 100 mg capsule RxNorm: 281665 1 Capsule(s) PO Q12H 06/21/20 18 2017 Inactive Singulair 10 mg tablet RxNorm: 952263 1 Tablet(s) PO daily 06/14/20 18 2018 Inactive Ventolin HFA 90 mcg/actuation aerosol inhaler RxNorm: 5852387 2 Puff(s) INH QID 06/14/20 18 2018 Inactive Singulair 10 mg tablet RxNorm: 534979 1 Tablet(s) PO daily 06/14/20 18 2017 Inactive buspirone 7.5 mg tablet RxNorm: 525052 1 Tablet(s) PO BID 06/14/20 18 2017 Inactive Prozac 10 mg capsule RxNorm: 063174 1 Capsule(s) PO daily 06/14/20 18 2017 Inactive Neilmed Pediatric Sinus Rinse Refill packet RxNorm: 1 Unit Dose NASAL PRN 05/31/20 18 2021 Inactive diclofenac sodium 75 mg tablet,delayed release RxNorm: 427114 1 Tablet(s) PO BID 05/31/20 18 2017 Inactive lisinopril 2.5 mg tablet RxNorm: 914501 1 Tablet(s) PO daily 05/31/20 18 2017 Inactive metoprolol succinate ER 50 mg tablet,extended release 24 hr RxNorm: 723434 1 Tablet(s) PO daily 05/31/20 18 2017 Inactive levothyroxine 50 mcg tablet RxNorm: 786898 1 Tablet(s) PO daily 05/31/20 18 2017 Inactive TRUEplus Lancets 30 gauge RxNorm: 1 Lancets Miscellaneous QAM 05/31/20 18 2017 Inactive 100/box Ventolin HFA 90 mcg/actuation aerosol inhaler RxNorm: 202509 2 Puff(s) INH QID 05/31/20 18 2017 Inactive Aleve 220 mg capsule RxNorm: 6844435 1 Capsule(s) PO BID 05/31/20 18 2018 Inactive ranitidine 150 mg tablet RxNorm: 097370 1 Tablet(s) PO BID 05/31/20 18 2017 Inactive gabapentin 300 mg capsule RxNorm: 909772 1 Capsule(s) PO TID as needed 05/31/20 18 2017 Inactive atorvastatin 20 mg tablet RxNorm: 163081 1 Tablet(s) PO QHS 05/31/20 18 2017 Inactive True Metrix Glucose Test Strip RxNorm: 1 Test Strips Miscellaneous QAM 05/31/20 18 2017 Inactive 50/container Calcium 600-D3 Plus 600 mg calcium-800 unit-50 mg tablet RxNorm: 1 Tablet(s) PO daily take an additonal tablet for itching. 05/31/20 18 2017 Inactive hydrochlorothiazide 12.5 mg tablet RxNorm: 770059 1 Tablet(s) PO QAM 05/31/20 18 2017 Inactive Flintstones Complete (iron) 18 mg iron chewable tablet RxNorm: 1 Tablet(s) PO daily 05/31/20 18 2017 Inactive d-mannose oral powder RxNorm: PO 18 2021 Inactive True Metrix Glucose Meter RxNorm: miscellaneous 08/17/20 19 2018 Inactive sertraline 50 mg tablet RxNorm: 124188 1 Tablet(s) PO daily 11/28/19 20 2019 Inactive loperamide 2 mg tablet RxNorm: 191487 oral 09/29/20 19 2018 Inactive Symbicort 160 mcg-4.5 mcg/actuation HFA aerosol inhaler RxNorm: 9268348 2 Puff(s) INH BID 08/17/20 19 2018 Inactive Medication Administered No Medication Administered data Procedures Procedure Codes Date Tobacco Assessment/Screening CPT-4: TCA [facility]60[facility] 4 CPT-4: DFRA01/01/2020Functional AssessmentCPT-4: DFA01/01/2020[place] Fany AssessmentCPT-4: DSWA11/28/2019Patient Health QuestionnaireCPT-4: DPHQ11/28/2019 [place] Fany AssessmentCPT-4: DSWA10/17/2019HypertensionCPT-4: HTN10/17/2019 [facility]375281 CPT-4: DFRA09/19/2019Functional AssessmentCPT-4: DFA111/20/2018Urinalysis, dip stickCPT-4: 962941406/21/2019Tobacco Assessment/ScreeningCPT-4: TCA05/24/2019 Patient Health QuestionnaireCPT-4: DPHQ05/24/2019AHA/REBECCA Classification AssessmentCPT-4: DAHA04/25/2019Controlled Substance ReportCPT-4: CTRSU04/25/2019 Urinalysis, dip stickCPT-4: 525899203/28/2019Urinalysis, dip stickCPT-4: 80954 03/28/20192404S1E-XjufxzuwnfcrnzdFGR-7: 66040CunuurrH5O-GuqzxfharotkklrCSK-6: [address]: 906560800 CPT-4: Q50Swyvcog Vital Signs Date Vital 03/21/2020 Blood Pressure 1: 139/87 Code: 8480-6 BMI: 53.9 Code: 27084-0 Heart Rate 1: 86 bpm Height: 4'11 Code: 8302-2 SpO2: % Weight: 267 lbs Code: 22010-5 Reason For Visit Reason For Visit Effective Dates Notes hypertension 03/21/2020 diabetes mellitus 03/21/2020 Interim health update 03/21/2020 Encounters Encounter Performer Location Location Address Codes Magdi e (54190) (EST PT) [facility] [place] [facility] VISIT Diagnosis: Essential (primary) hypertension[ICD10: I10] Diagnosis: Adult BMI 50.0-59.9 kg/sq m[ICD10: Z68.43]Anna Palomoariane [id number] [place] [address] [address] [place], [place] [address]SUJ-8: 67[address] 03/21/2020 Plan of Care Planned Activity Notes Codes Status Date Visit Plan: E11.42-250.60 Type 2 diabetes mellitus with peripheral neuropathy testing daily, at varied times range 76-153, elevated BS was in the evening, isolated incident usually stays under 134 patient reports need to send BS results to [place] for review 10/17/2019 Hemoglobin A1C 6.0 07/04/2019 Hgb A1C 5.6 10/17/2019 Inocente Soares 7/10-instructed on good daily foot care routine follow up with Dr. Gonzales, podiatry-diabetic shoe received ophthalmology confirms visit, but doesn't remember when 01/01/2020 FRA complete denies fall 01/01/2020 Functional Assessment complete I10-401.9 Essential (primary) hypertension I11.0-402.91 Hypertensive heart disease with heart failure has accessto BP monitor, cont hctz 10/17/2019 HTN assessment, encourage lifestyle modifications, exercise, weight loss, and limiting fried and greasy foods, 10/17/2019 GFR 90 N18.9-585.9 Chronic kidney disease, unspecified avoid nephro toxic drugs, 07/04/2019 BUN 17 creatinine 0.7 GFR 93 Patient denies ability to drink water stating that it dehydrates her- doesn't know diagnosis,but indicates she was told this by previous urologist urology next appointment 03/31/2020 G47.33-327.23 Obstructive sleep apnea (adult) (pediatric) J45.909-493.90 Asthma continue inhalers and nebulizer wears cpap every night, believes that is helpful Dr. Garcia, pulmonology for chronic sleep apnea and asthma-audio visit last week Cpap pressuresetting increased to 12-request records F43.23-309.28 Adjustment disorder with mixed anxiety and depressed mood routine follow up [place] [facility] [place] E03.9-244.9 Hypothyroidism, unspecified cont levothyroxine N39.46-788.33 Mixed incontinence use of incontinence supplies R55-780.2 Syncope and collapse denies any recent episodes advise to check BS when feeling light headed Z68.43-V85.43 Adult BMI 50.0-59.9 kg/sq m continues to loose weight trying to avoid soda, drinking sparkling flavored watersand occasional Heike Green Tea and honey Z12.4-V76.2 Encounter for screening for malignant neoplasm of cervix last pap January 2019 will request records Z01.89- V72.85 Encounter for screening for tobacco use Tobacco screen complete- patient denies ever smoking *I reviewed the most [...] visit verbalized understanding of all above topics. 03/21/2020Patient Education: Patient Medication JendcbgWpmmnbocl52/19/2020 Patient Education: IfmlvsjbwykkAuiybjtew80/19/2020Patient Education: Diabetes Egdhndhcb29/19/2020Patient Education: RjvqqoeOlwlcpvuq80/19/2020Appointment: Anna Culver WPtel: [phone] [address] [id number]: Anna Culver WPtel: [phone] [place] [address] [id number]: Anna Culver WPtel: [phone] [place] [address] [id number]: Anna Culver WPtel: [phone] [place] [address] [id number]: Anna Culver WPtel: [phone] [place] [address] [id number]: Anna Culver WPtel: [address] [place] [address] [id number]: Sudha Hernadez WPtel: [address] [facility] [id number]: Sudha Hernadez WPtel: [address] [facility] [id number]: SandipCharlene WPtel: [address] [facility] [address] [id number] [id number]: Enedelia [id number]: Sandip Charlene WPtel: [address] [facility] [address] [id number]: Rasta Palafox WPtel: [address] [facility] [address] [id number]: Rasta Palafox WPtel: [address] [facility] [address] [id number]: Rasta Palafox WPtel: [address] [facility] [address] [id number]: Rasta Palafox WPtel: [address] [facility] [address] [id number]: Pending Gynecology Referral InformationReferral ProcessedReferral: Pending Pulmonology Referral InformationReferralProcessed Referral: Pending Psychiatry Referral InformationReferralInitiatedReferral: Pending Respiratory Services Referral InformationReferralInitiatedReferral: Pending Ophthalmology Referral InformationReferralInitiatedReferral: [facility] WPtel: [address] [place] [address] [address] [address] USWriter placed a call out to the patient to notify her that it has been recommended that she be seenby 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 Patient agreed to be seen, does not have a provider of choice and no transportationissues. [employer]or faxed referral and clinical notes to [facility] in [place], [place] near the patient's home. Patient to [...] seen and prefers a provider in the [place] or [facility]. [employer]or placed a call out to everyone listed in the area and the only location that was able to accept the patient's insurance was [place] [address] [place] [address] and spoke with Maylin. Maylin asked that the patient's referral, face sheet and visit notes be faxed to . [employer]or faxed over requested documents. Patient appointment confirmation letter generated and mailed to her home address. Patient to call to schedule an appointment.ProcessedReferral: [facility] WPtel: [address] [id number] USPatient notified that it has been advised that she be seen by Neurology. Patient agreed to be seen and prefers to be seen by a provider in the [place], [place] area. Patient denies any concerns with transportation, and prefers to schedule her own appointment. Denture Processor placed a call out to [facility] and spoke with Neeraj [...] Assessment and plan reviewed with patient . E11.42-250.60 Type 2 diabetes mellitus with peripheral neuropathy testing daily, at varied times range 76-153, elevated BS was in the evening, isolated incident usually stays under 134 patient reports need to send BS results to [place] for review 10/17/2019 Hemoglobin A1C 6.0; 07/04/2019 Hgb A1C 5.6 10/17/2019 [place] Fany 7/10-instructed on good daily foot care routine follow up with Dr. Gonzales, podiatry-diabetic shoe received ophthalmology confirms visit, but doesn't remember when 01/01/2020 FRA complete denies fall 01/01/2020 Functional Assessment complete I10-401.9 Essential (primary) hypertension I11.0-402.91 Hypertensive heart disease with heart failure has access to BP monitor, cont hctz 10/17/2019 HTN assessment, encourage lifestyle modifications, exercise, weight loss, and limiting fried and greasy foods, 10/17/2019 GFR 90 N18.9-585.9 Chronic kidney disease, unspecified avoid nephro toxic drugs, 07/04/2019 BUN 17; creatinine 0.7; GFR 93 Patient denies ability to drink water stating that it dehydrates her-doesn't know diagnosis, but indicates she was told this by previous urologist urology next appointment 03/31/2020 G47.33-327.23 Obstructive sleep apnea (adult) (pediatric); J45.909-493.90 Asthma continue inhalers and nebulizer wears cpap every night, believes that is helpful Dr. Garcia, pulmonology for chronic sleep apnea and asthma-audio visit last week Cpap pressure setting increased to 12-request records F43.23-309.28 Adjustment disorder with mixed anxiety and depressed mood routine follow up [place] [facility] [place] E03.9-244.9 Hypothyroidism, unspecified cont levothyroxine N39.46-788.33 Mixed incontinence use of incontinence supplies R55-780.2 Syncope and collapse denies any recent episodes advise to check BS when feeling light headed Z68.43-V85.43 Adult BMI 50.0-59.9 kg/sq m continues to loose weight trying to avoid soda, drinking sparkling flavored pal and occasional Heike Green Tea and honey Z12.4-V76.2 Encounter for screening for malignant neoplasm of cervix last pap January 2019 will request records Z01.89-V72.85 Encounter for [...] visit verbalized understanding of all above topics. 03/21/2020 Medical Equipment No Medical Equipment data Advance Directives No Advance Directive data
--- OUTSIDE RECORDS SUMMARY | 2023-12-07 02:11 | XMS_ITS | CCD ---
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 Automobile Service Station Manager Name Role Phone Palomo KING, Anna Primary Care Provider Unav ailable Unavailable Chronic Care Management Unavaila ble Summary Purpose DataExchange Insurance Providers Payer name Policy type / Coverage type Covered alliance party ID Effective Begin Date Effective End Date [employer] [facility] [id number] Unknown Unknown Family history Mother Diagnosis Age [...] 05/31/2018 Education level Unknown Some High School 10th05/31/20182566SkvkjkkoaeLbslfzgUrtfbubepr85/29/2018Tobacco historySNOMED CT: 097972044Gxw never smoked or chewed yzbqvsf2805/31/2018Alcohol historySNOMED CT: 713937687Krres drinks ohtzjlw7705/31/2018Has the patient ever used illegal drugs? UnknownHas never used illegal drugs05/31/2018DNR Order/ Advanced Directive UnknownFull Code05/31/2018 Allergies, Adverse Reactions, Alerts Substance Reaction Codes Entered Date Inactivated Date Status *No known food allergies Cwdzpvu3709/06/2018No Inactive DateActiveMethylprednisolonehivesRxNorm: 6902 09/06/2018No Inactive DateActive Problems [...] ICD-9: 356.908/ActivePatient Not SeenICD-10: UXZ.01 ICD-9: XZ0.107/ActiveOther alf (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ICD-10: Z79.899 ICD-9: V58.6907/ActiveChest [...] 12 Hour 120 mg tablet,extended release RxNorm: 6708807 TAKE 1 TABLET BY MOUTH EVERY 12 HOURS NEEDED 03/14/20 20 2019 Inactive True Metrix Glucose Test Strip RxNorm: 1 Test Strips Miscellaneous every morning 03/13/20 20 2019 Inactive 100/container loperamide 2 mg tablet RxNorm: 874793 1 Tablet(s) Oral as needed take one tablet after each loose stool, maximum of 8 tablets in 24 hours 02/22/20 20 2019 Inactive True Metrix Glucose Test Strip RxNorm: 1 Test Strips Miscellaneous QAM 02/22/20 20 2019 Inactive 100/container cetirizine 10 mg tablet RxNorm: 8750344 1 Tablet(s) PO daily 01/17/20 20 2019 Inactive levothyroxine 50 mcg tablet RxNorm: 373365 1 Tablet(s) PO daily 01/17/20 20 2020 Inactive gabapentin 300 mg capsule RxNorm: 230127 1 Capsule(s) PO TID 01/17/20 20 2019 Inactive loperamide 2 mg tablet RxNorm: 737040 1 Tablet(s) Oral as needed take one tablet after each loose stool, maximum of 8 tablets in 24 hours 01/17/20 20 2019 Inactive quetiapine 100 mg tablet RxNorm: 989539 1 Tablet(s) Oral every night at bedtime 01/17/20 20 2019 Inactive lisinopril 2.5 mg tablet RxNorm: 675233 1 Tablet(s) PO daily 01/15/20 20 2020 Inactive Singulair 10 mg tablet RxNorm: 880002 1 Tablet(s) PO daily 01/15/20 20 2020 Inactive levothyroxine 50 mcg tablet RxNorm: 294872 1 Tablet(s) PO daily 01/15/20 20 2019 Inactive gabapentin 300 mg capsule RxNorm: 660604 1 Capsule(s) PO TID 01/15/20 20 2019 Inactive cetirizine 10 mg tablet RxNorm: 4324704 1 Tablet(s) PO daily 01/15/20 20 2019 Inactive gentamicin 0.3 % eye drops RxNorm: 787606 1 Drop(s) ophthalmic (eye) four times a day 12/29/19 20 2019 Inactive gentamicin 0.3 % eye drops RxNorm: 214261 1 Drop(s) ophthalmic (eye) four times a day 12/29/19 20 2019 Inactive gentamicin 0.3 % eye drops RxNorm: 809464 1 Drop(s) ophthalmic (eye) four times a day 12/29/19 20 2019 Inactive hydrochlorothiazide 25 mg tablet RxNorm: 557665 1 Tablet(s) Oral every day 12/21/19 20 2019 Inactive Sudafed 12 Hour 120 mg tablet,extended release RxNorm: 9249409 TAKE (1) TABLET BY MOUTH EVERY 12 HOURS NEEDED 12/21/19 20 2019 Inactive loperamide 2 mg tablet RxNorm: 304440 1 Tablet(s) Oral as needed take one tablet after each loose stool, maximum of 8 tablets in 24 hours 12/11/19 20 2019 Inactive loperamide 2 mg tablet RxNorm: 379870 1 Tablet(s) Oral as needed take one tablet after each loose stool, maximum of 8 tablets in 24 hours 12/11/19 20 2019 Inactive atorvastatin 40 mg tablet RxNorm: 118186 1 Tablet(s) Oral every day 11/29/19 20 2020 Inactive sertraline 100 mg tablet RxNorm: 460650 1 Tablet(s) Oral 11/28/19 20 2019 Inactive quetiapine 100 mg tablet RxNorm: 051770 1 Tablet(s) Oral every night at bedtime 11/28/19 20 2019 Inactive omeprazole 20 mg capsule,delayed release RxNorm: 561751 1 Capsule(s) Oral every day 11/20/19 20 2019 Inactive amoxicillin 250 mg capsule RxNorm: 088855 1 Capsule(s) Oral three times a day 11/07/19 20 2019 Inactive multivitamin with iron-mineral tablet RxNorm: 1 Tablet(s) Oral every day 10/29/19 20 2021 Inactive cetirizine 10 mg tablet RxNorm: 9794482 1 Tablet(s) PO daily 10/20/19 20 2019 Inactive This refill negates all other refills of this medication. Please do not auto refill Singulair 10 mg tablet RxNorm: 584226 1 Tablet(s) PO daily 10/20/19 20 2019 Inactive This refill negates all other refills of this medication gabapentin 300 mg capsule RxNorm: 936896 1 Capsule(s) PO TID 10/20/19 20 2019 Inactive lisinopril 2.5 mg tablet RxNorm: 472048 1 Tablet(s) PO daily 10/20/19 20 2019 Inactive levothyroxine 50 mcg tablet RxNorm: 333098 1 Tablet(s) PO daily 10/20/192019 Inactive This refill negates all other refills of this medication fenugreek seed extract 500 mg capsule RxNorm: 1 Capsule(s) Oral three times a day 10/17/19 20 2021 Inactive hydrochlorothiazide 25 mg tablet RxNorm: 887943 1 Tablet(s) Oral every day 10/17/19 20 2019 Inactive Alcohol Prep Pads RxNorm: 429971 1 Patch TOP QAM 10/16/19 20 2020 Inactive loperamide 2 mg tablet RxNorm: 473872 1 Tablet(s) Oral as needed take one [...] 2019 Inactive hydrochlorothiazide 25 mg tablet RxNorm: 978335 1 Tablet(s) Oral every day 09/19/20 19 2019 Inactive Sudafed 12 Hour 120 mg tablet,extended release RxNorm: 1731354 1 Tablet(s) Oral every 12 hours as needed 09/11/20 19 2018 Inactive omeprazole 20 mg capsule,delayed release RxNorm: 374253 1 Capsule(s) Oral every day 09/07/20 19 2019 Inactive Sudafed 12 Hour 120 mg tablet,extended release RxNorm: 5817322 1 Tablet(s) Oral every 12 hours as needed 09/04/20 19 2018 Inactive pantoprazole 40 mg tablet,delayed release RxNorm: 941656 1 Tablet(s) Oral every day 08/24/20 19 2018 Inactive discontinue any other H2Blkr. and PPI albuterol sulfate 2.5 mg/3 mL (0.083 %) solution for nebulization RxNorm: 774469 1 Vial Inhalation every four hours as needed as needed for dyspnea 08/17/202019 Inactive 60/box. This refill negates all other refills of this medication. Please do not fill early. Please do not auto refill. Symbicort 160 mcg-4.5 mcg/actuation HFA aerosol inhaler RxNorm: 1868246 2 Puff(s) INH BID 08/17/20 19 No Stop Date Active Alcohol Prep Pads RxNorm: 880779 1 Patch TOP QAM 08/17/20 19 2019 Inactive Ventolin HFA 90 mcg/actuation aerosol inhaler RxNorm: 876007 2 Puff(s) INH QID 08/09/20 19 2019 Inactive Please do not fill early. Please do not auto refill. This refill negates all other refills of this medication True Metrix Glucose Test Strip RxNorm: 1 Test Strips Miscellaneous QAM 08/09/20 19 2019 Inactive 100/container atorvastatin 40 mg tablet RxNorm: 403922 1 Tablet(s) Oral every day 07/04/20 19 2019 Inactive levmetamfetamine 50 mg nasal inhaler RxNorm: 1 Unit(s) NASAL Q3-4H Do not use more than every 3 hours or 8 times/24hours 06/26/20 19 2021 Inactive Please do not auto refill. This refill negates all other refills of this medication diclofenac sodium 75 mg tablet,delayed release RxNorm: 336979 1 Tablet(s) PO BID 06/26/20 19 2019 Inactive This refill negates all other refills of this medication buspirone 7.5 mg tablet RxNorm: 064489 1 Tablet(s) PO BID 06/26/20 19 2020 Inactive This refill negates all other refills of this medication hydrochlorothiazide 12.5 mg tablet RxNorm: 133558 1 Tablet(s) PO QAM 06/26/20 19 2019 Inactive Ventolin HFA 90 mcg/actuation aerosol inhaler RxNorm: 392089 2 Puff(s) INH QID 06/26/20 19 2018 Inactive Please do not fill early. Please do not auto refill. This refill negates all other refills of this medication Singulair 10 mg tablet RxNorm: 112839 1 Tablet(s) PO daily 06/26/20 19 2019 Inactive This refill negates all other refills of this medication cetirizine 10 mg tablet RxNorm: 9902303 1 Tablet(s) PO daily 06/26/20 19 2019 Inactive This refill negates all other refills of this medication. Please do not auto refill levothyroxine 50 mcg tablet RxNorm: 861107 1 Tablet(s) PO daily 06/26/20 19 2019 Inactive This refill negates all other refills of this medication ranitidine 150 mg tablet RxNorm: 976941 1 Tablet(s) PO BID 06/26/20 19 2018 Inactive This refill negates all other refills of this medication Calcium 600-D3 Plus (mag-zinc) 600 mg calcium-800 unit-50 mg tablet RxNorm: 1 Tablet(s) PO daily take an additonal tablet for itching. 06/26/20 19 2018 Inactive This refill negates all other refills of this medication albuterol sulfate 2.5 mg/3 mL (0.083 %) solution for nebulization RxNorm: 792618 1 Vial INH QID 06/26/20 19 2018 Inactive 60/box. This refill negates all other refills of this medication. Please do not fill early. Please do not auto refill. lisinopril 2.5 mg tablet RxNorm: 874987 1 Tablet(s) PO daily 06/21/20 19 2019 Inactive gabapentin 300 mg capsule RxNorm: 177541 1 Capsule(s) PO TID 06/21/20 19 2019 Inactive atorvastatin 20 mg tablet RxNorm: 974894 1 Tablet(s) PO QHS 06/07/202018 Inactive This refill negates all other refills of this medication TRUEplus Lancets 30 gauge RxNorm: 1 Lancets Miscellaneous QAM 05/29/202018 Inactive 100/box gabapentin 300 mg capsule RxNorm: 968983 1 Capsule(s) PO TID 05/03/20 19 2018 Inactive Flintstones Complete (iron) 18 mg iron chewable tablet RxNorm: 1 Tablet(s) PO daily 04/04/202021 Inactive This refill negates all other refills of this medication gabapentin 300 mg capsule RxNorm: 312705 1 Capsule(s) PO TID as needed 02/01/202018 Inactive True Metrix Glucose Test Strip RxNorm: 1 Test Strips Miscellaneous QA 02/01/20 19 2018 Inactive 100/container Alcohol Prep Pads RxNorm: 543751 1 Patch TOP QA 02/01/202018 Inactive TRUEplus Lancets 30 gauge RxNorm: 1 Lancets Miscellaneous QAM 02/01/202018 Inactive 100/box lisinopril 2.5 mg tablet RxNorm: 095008 1 Tablet(s) PO daily 12/28/192018 Inactive ranitidine 150 mg tablet RxNorm: 148882 1 Tablet(s) PO BID 10/21/19 19 2018 Inactive This refill negates all other refills of this medication albuterol sulfate 2.5 mg/3 mL (0.083 %) solution for nebulization RxNorm: 447939 1 Vial INH QID 10/21/19 2018 Inactive 60/box. This refill negates all [...] this medication gabapentin 300 mg capsule RxNorm: 104933 1 Capsule(s) PO TID as needed 10/21/19 19 2018 Inactive atorvastatin 20 mg tablet RxNorm: 876338 1 Tablet(s) PO QHS 10/21/192018 Inactive This refill negates all other refills of this medication trazodone 50 mg tablet RxNorm: 633549 1 Tablet(s) PO QHS 10/21/192018 Inactive This refill negates all other refills of this medication Ventolin HFA 90 mcg/actuation aerosol inhaler RxNorm: 361118 2 Puff(s) INH QID 10/21/19 19 2018 Inactive Please do not fill early. Please do not auto refill. This refill negates all other refills of this medication Calcium 600-D3 Plus 600 mg calcium-800 unit-50 mg tablet RxNorm: 1 Tablet(s) PO daily take an additonal tablet for itching. 10/21/192018 Inactive This refill negates all other refills of this medication Singulair 10 mg tablet RxNorm: 621337 1 Tablet(s) PO daily 10/21/192018 Inactive This refill negates all other refills of this medication buspirone 7.5 mg tablet RxNorm: 031131 1 Tablet(s) PO BID 10/21/192018 Inactive This refill negates all other refills of this medication diclofenac sodium 75 mg tablet,delayed release RxNorm: 776103 1 Tablet(s) PO BID 10/21/19 19 2018 Inactive This refill negates all other refills of this medication hydrochlorothiazide 12.5 mg tablet RxNorm: 232022 1 Tablet(s) PO QAM 10/21/19 19 2018 Inactive metoprolol succinate ER 50 mg tablet,extended release 24 hr RxNorm: 017363 1 Tablet(s) PO daily 10/21/19 19 2018 Inactive This refill negates all other refills of this medication levothyroxine 50 mcg tablet RxNorm: 763022 1 Tablet(s) PO daily 10/21/19 19 2018 Inactive This refill negates all other refills of this medication cetirizine 10 mg tablet RxNorm: 7417312 1 Tablet(s) PO daily 10/21/19 19 2018 Inactive This refill negates all other refills of this medication. Please do not auto refill Flintstones Complete (iron) 18 mg iron chewable tablet RxNorm: 1 Tablet(s) PO daily 10/21/192018 Inactive This refill negates all other refills of this medication buspirone 7.5 mg tablet RxNorm: 021562 1 Tablet(s) PO BID 10/12/19 19 2018 Inactive cetirizine 10 mg tablet RxNorm: 1708582 1 Tablet(s) PO daily 09/28/20 18 2018 Inactive Guaiasorb DM 10 mg-100 mg/5 mL oral liquid RxNorm: 573116 10 Milliliter(s) PO As needed every 4 hr 09/24/202018 Inactive Vicks Vaporub 4.7 %-1.2 %-2.6 % topical ointment RxNorm: 5753829 1 Application TOP TID 09/24/20 18 2018 Inactive levmetamfetamine 50 mg nasal inhaler RxNorm: 1 Unit(s) NASAL Q3-4H 09/24/20 18 2017 Inactive sertraline 50 mg tablet RxNorm: 999917 1 Tablet(s) PO daily 09/09/20 18 2018 Inactive Please note dose trazodone 50 mg tablet RxNorm: 381633 1 Tablet(s) PO QHS 09/06/20 18 2018 Inactive sertraline 50 mg tablet RxNorm: 107174 1 Tablet(s) PO daily 09/06/20 18 2017 Inactive amoxicillin 500 mg tablet RxNorm: 486032 1 Tablet(s) PO Q12H 08/31/20 18 2017 Inactive albuterol sulfate 2.5 mg/3 mL (0.083 %) solution for nebulization RxNorm: 653392 1 Vial INH QID 08/10/20 18 2018 Inactive 60/box. Please do not fill early. Please do not auto refill. Prozac 10 mg capsule RxNorm: 517672 1 Capsule(s) PO daily 08/09/20 18 2017 Inactive buspirone 7.5 mg tablet RxNorm: 654573 1 Tablet(s) PO BID 08/09/20 18 2018 Inactive gabapentin 300 mg capsule RxNorm: 947614 1 Capsule(s) PO TID as needed 08/01/20 18 2018 Inactive hydrochlorothiazide 12.5 mg tablet RxNorm: 272899 1 Tablet(s) PO QAM 08/01/20 18 2018 Inactive ranitidine 150 mg tablet RxNorm: 168169 1 Tablet(s) PO BID 08/01/20 18 2018 Inactive Macrobid 100 mg capsule RxNorm: 248849 1 Capsule(s) PO Q12H 06/21/20 18 2017 Inactive Singulair 10 mg tablet RxNorm: 687611 1 Tablet(s) PO daily 06/14/20 18 2018 Inactive Ventolin HFA 90 mcg/actuation aerosol inhaler RxNorm: 1719524 2 Puff(s) INH QID 06/14/20 18 2018 Inactive Singulair 10 mg tablet RxNorm: 669758 1 Tablet(s) PO daily 06/14/20 18 2017 Inactive buspirone 7.5 mg tablet RxNorm: 470698 1 Tablet(s) PO BID 06/14/20 18 2017 Inactive Prozac 10 mg capsule RxNorm: 552732 1 Capsule(s) PO daily 06/14/20 18 2017 Inactive Neilmed Pediatric Sinus Rinse Refill packet RxNorm: 1 Unit Dose NASAL PRN 05/31/20 18 2021 Inactive diclofenac sodium 75 mg tablet,delayed release RxNorm: 468259 1 Tablet(s) PO BID 05/31/20 18 2017 Inactive lisinopril 2.5 mg tablet RxNorm: 519164 1 Tablet(s) PO daily 05/31/20 18 2017 Inactive metoprolol succinate ER 50 mg tablet,extended release 24 hr RxNorm: 023713 1 Tablet(s) PO daily 05/31/20 18 2017 Inactive levothyroxine 50 mcg tablet RxNorm: 886281 1 Tablet(s) PO daily 05/31/20 18 2017 Inactive TRUEplus Lancets 30 gauge RxNorm: 1 Lancets Miscellaneous QAM 05/31/20 18 2017 Inactive 100/box Ventolin HFA 90 mcg/actuation aerosol inhaler RxNorm: 324596 2 Puff(s) INH QID 05/31/20 18 2017 Inactive Aleve 220 mg capsule RxNorm: 1609117 1 Capsule(s) PO BID 05/31/20 18 2018 Inactive ranitidine 150 mg tablet RxNorm: 266412 1 Tablet(s) PO BID 05/31/20 18 2017 Inactive gabapentin 300 mg capsule RxNorm: 573248 1 Capsule(s) PO TID as needed 05/31/20 18 2017 Inactive atorvastatin 20 mg tablet RxNorm: 274573 1 Tablet(s) PO QHS 05/31/20 18 2017 Inactive True Metrix Glucose Test Strip RxNorm: 1 Test Strips Miscellaneous QAM 05/31/20 18 2017 Inactive 50/container Calcium 600-D3 Plus 600 mg calcium-800 unit-50 mg tablet RxNorm: 1 Tablet(s) PO daily take an additonal tablet for itching. 05/31/20 18 2017 Inactive hydrochlorothiazide 12.5 mg tablet RxNorm: 169629 1 Tablet(s) PO QAM 05/31/20 18 2017 Inactive Flintstones Complete (iron) 18 mg iron chewable tablet RxNorm: 1 Tablet(s) PO daily 05/31/20 18 2017 Inactive d-mannose oral powder RxNorm: PO 18 2021 Inactive True Metrix Glucose Meter RxNorm: miscellaneous 08/17/20 19 2018 Inactive sertraline 50 mg tablet RxNorm: 901153 1 Tablet(s) PO daily 11/28/19 20 2019 Inactive loperamide 2 mg tablet RxNorm: 222048 oral 09/29/20 19 2018 Inactive Symbicort 160 mcg-4.5 mcg/actuation HFA aerosol inhaler RxNorm: 8264182 2 Puff(s) INH BID 08/17/20 19 2018 Inactive Medication Administered No Medication Administered data Procedures Procedure Codes Date Tobacco Assessment/Screening CPT-4: [facility] CPT-4: DFRA01/01/2020Functional AssessmentCPT-4: DFA01/01/2020[place] Fany AssessmentCPT-4: DSWA11/28/2019Patient Health QuestionnaireCPT-4: DPHQ11/28/2019 [place] Fany AssessmentCPT-4: DSWA10/17/2019HypertensionCPT-4: HTN10/17/2019 [facility] 361705830 CPT-4: DFRA09/19/2019Functional AssessmentCPT-4: DFA111/20/2018Urinalysis, dip stickCPT-4: 496166906/21/2019Tobacco Assessment/ScreeningCPT-4: TCA05/24/2019 Patient Health QuestionnaireCPT-4: DPHQ05/24/2019AHA/REBECCA Classification AssessmentCPT-4: DAHA04/25/2019Controlled Substance ReportCPT-4: CTRSU04/25/2019 Urinalysis, dip stickCPT-4: 475706603/28/2019Urinalysis, dip stickCPT-4: 64359 03/28/20190751V6C-KioarclkhqslsdhRRT-7: 98755UgypukmH4I-KlkmvijyjaovvemMOH-7: [address]: 175881660 CPT-4: D63Igznwjy Reason For Visit No Reason For Visit data Plan of Care Planned Activity Notes Codes Status Date Referral: Pending Gynecology Referral Informatio n Referral ProcessedReferral: Pending Pulmonology Referral InformationReferralProcessed Referral: Pending Psychiatry Referral InformationReferralInitiatedReferral: Pending Respiratory Services Referral InformationReferralInitiatedReferral: Pending Ophthalmology Referral InformationReferralInitiatedReferral: [facility] WPtel: [address] [id number] [place]Writer placed a call out to the patient to notify her that it has been recommended that she be seenby 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 Patient agreed to be seen, does not have a provider of choice and no transportationissues. Flight Control Specialist faxed referral and clinical notes to [facility] in [place], [place] near the patient's home. Patient to [...] and prefers a provider in the [place] or [place] area. Flight Control Specialist placed a call out to everyone listed in the area and the only location that was able to accept the patient's insurance was [address] [id number] and spoke with Maylin. Maylin asked that the patient's referral, face sheet and visit notes be faxed to . Flight Control Specialist faxed over requested documents. Patient appointment confirmation letter generated and mailed to her home address. Patient to call to schedule an appointment.ProcessedReferral: [facility] WPtel: [address] [id number] USPatient notified that it has been advised that she be seen by Neurology. Patient agreed to be seen and prefers to be seen by a provider in the [place], [place] area. Patient denies any concerns with transportation, and prefers to schedule her own appointment. Flight Control Specialist placed a call out to [facility] and spoke with Neeraj P: [...]
--- OUTSIDE RECORDS SUMMARY | 2023-12-07 02:11 | XMS_ITS | CCD ---
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 Medical Social Worker Name Role Phone Palomo KING, Anna Primary Care Provider Unav ailable Unavailable Chronic Care Management Unavaila ble Summary Purpose DataExchange Insurance Providers Payer name Policy type / Coverage type Covered libertarian ID Effective Begin Date Effective End Date [facility]KI [facility] [id number] Unknown Unknown Family history Mother Diagnosis Age [...] 05/31/2018 Education level Unknown Some High School 10th05/31/20182249NtgvufbmezHyqvntaMhlfncrfpy54/29/2018Tobacco historySNOMED CT: 021096620Fgl never smoked or chewed imwphpv4705/31/2018Alcohol historySNOMED CT: 597215312Puljd drinks rlnogim6405/31/2018Has the patient ever used illegal drugs? UnknownHas never used illegal drugs05/31/2018DNR Order/ Advanced Directive UnknownFull Code05/31/2018 Allergies, Adverse Reactions, Alerts Substance Reaction Codes Entered Date Inactivated Date Status *No known food allergies Pzbosdu6909/06/2018No Inactive DateActiveMethylprednisolonehivesRxNorm: 6902 09/06/2018No Inactive DateActive Problems Condition Codes Effective Dates Condition St atus Chronic kidney disease, unspecified ICD- 10: N18.9 ICD-9: 585.909ActiveHypertensive heart disease with heart failureICD-10: I11.0 ICD-9: 402.9107ActiveType 2 diabetes mellitus with peripheral neuropathy ICD-10: E11.42 ICD-9: 250.6002/ActiveAdult BMI 50.0-59.9 kg/sq mICD-10: Z68.43 ICD-9: V85.4308ActiveEssential (primary) hypertensionICD-10: I10 ICD-9: 401.901ActiveAbrasion of toeICD-10: S90.416A ICD-9: 917.005/ActiveEncounter for screening for malignant neoplasm of cervixICD-10: Z12.4 ICD-9: V76.207/ActiveObstructive sleep apnea (adult) (pediatric)ICD-10: G47.33 ICD-9: 327.2309/ActiveEncounter for screening for tobacco useICD-10: Z01.89 ICD-9: V72.8503ActivePink eyeICD-10: H10.029 ICD-9: 372.0303/ActiveSyncope and collapseICD-10: R55 ICD-9: 780.203ActiveFecal incontinenceICD-10: R15.9 ICD-9: 787.6003ActiveMixed incontinenceICD-10: N39.46 ICD-9: 788.3308ActiveDiarrheaICD-10: R19.7 ICD-9: 787.9112ActiveAdjustment disorder with mixed anxiety and depressed moodICD-10: F43.23 ICD-9: 309.2812ActiveType 2 diabetes mellitus without complicationsICD- 10: E11.9 ICD-9: 250.0001ActiveSinusitisICD-10: J32.9 ICD-9: 473.902ActiveAsthmaICD-10: J45.909 ICD-9: 493.9011ActiveGERD (gastroesophageal reflux disease)ICD-10: K21.9 ICD-9: 530.8112ActiveAcute upper respiratory infection, unspecifiedICD- 10: J06.9 ICD-9: 465.912ActiveHypothyroidism, unspecifiedICD-10: E03.9 ICD-9: 244.912/01/2018ActiveHyperlipidemia, unspecifiedICD-10: E78.5 ICD-9: 272.408/ActiveApnea, not elsewhere classifiedICD-10: R06.81 ICD-9: 786.0305ActiveEncounter for immunizationICD-10: Z23 ICD-9: V03.907/ActiveEncounter for screening, unspecifiedICD-10: Z13.9 ICD-9: V82.912/01/2018ActivePolyneuropathy, unspecifiedICD-10: G62.9 ICD-9: 356.908/ActivePatient Not SeenICD-10: UXZ.01 ICD-9: XZ0.107/ActiveOther assisted (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ICD-10: Z79.899 ICD-9: V58.6907/ActiveChest pain, [...] diclofenac sodium 75 mg tablet,delayed release RxNorm: 710478 1 Tablet(s) PO BID 04/14/20 20 2021 Inactive This refill negates all other refills of this medication Sudafed 12 Hour 120 mg tablet,extended release RxNorm: 2098650 TAKE 1 TABLET BY MOUTH EVERY 12 HOURS NEEDED 03/14/20 20 2019 Inactive True Metrix Glucose Test Strip RxNorm: 1 Test Strips Miscellaneous every morning 03/13/20 20 2019 Inactive 100/container loperamide 2 mg tablet RxNorm: 103023 1 Tablet(s) Oral as needed take one tablet after each loose stool, maximum of 8 tablets in 24 hours 02/22/20 20 2019 Inactive True Metrix Glucose Test Strip RxNorm: 1 Test Strips Miscellaneous QAM 02/22/20 20 2019 Inactive 100/container cetirizine 10 mg tablet RxNorm: 9538629 1 Tablet(s) PO daily 01/17/20 20 2019 Inactive levothyroxine 50 mcg tablet RxNorm: 652194 1 Tablet(s) PO daily 01/17/20 20 2020 Inactive gabapentin 300 mg capsule RxNorm: 539340 1 Capsule(s) PO TID 01/17/20 20 2019 Inactive loperamide 2 mg tablet RxNorm: 185771 1 Tablet(s) Oral as needed take one tablet after each loose stool, maximum of 8 tablets in 24 hours 01/17/20 20 2019 Inactive quetiapine 100 mg tablet RxNorm: 899940 1 Tablet(s) Oral every night at bedtime 01/17/20 20 2019 Inactive lisinopril 2.5 mg tablet RxNorm: 895064 1 Tablet(s) PO daily 01/15/20 20 2020 Inactive Singulair 10 mg tablet RxNorm: 113977 1 Tablet(s) PO daily 01/15/20 20 2020 Inactive levothyroxine 50 mcg tablet RxNorm: 099544 1 Tablet(s) PO daily 01/15/20 20 2019 Inactive gabapentin 300 mg capsule RxNorm: 158435 1 Capsule(s) PO TID 01/15/20 20 2019 Inactive cetirizine 10 mg tablet RxNorm: 3624824 1 Tablet(s) PO daily 01/15/20 20 2019 Inactive gentamicin 0.3 % eye drops RxNorm: 558633 1 Drop(s) ophthalmic (eye) four times a day 12/29/19 20 2019 Inactive gentamicin 0.3 % eye drops RxNorm: 225225 1 Drop(s) ophthalmic (eye) four times a day 12/29/19 20 2019 Inactive gentamicin 0.3 % eye drops RxNorm: 101749 1 Drop(s) ophthalmic (eye) four times a day 12/29/19 20 2019 Inactive hydrochlorothiazide 25 mg tablet RxNorm: 320287 1 Tablet(s) Oral every day 12/21/19 20 2019 Inactive Sudafed 12 Hour 120 mg tablet,extended release RxNorm: 9357852 TAKE (1) TABLET BY MOUTH EVERY 12 HOURS NEEDED 12/21/19 20 2019 Inactive loperamide 2 mg tablet RxNorm: 202882 1 Tablet(s) Oral as needed take one tablet after each loose stool, maximum of 8 tablets in 24 hours 12/11/19 20 2019 Inactive loperamide 2 mg tablet RxNorm: 558386 1 Tablet(s) Oral as needed take one tablet after each loose stool, maximum of 8 tablets in 24 hours 12/11/19 20 2019 Inactive atorvastatin 40 mg tablet RxNorm: 235561 1 Tablet(s) Oral every day 11/29/19 20 2020 Inactive sertraline 100 mg tablet RxNorm: 005178 1 Tablet(s) Oral 11/28/19 20 2019 Inactive quetiapine 100 mg tablet RxNorm: 204208 1 Tablet(s) Oral every night at bedtime 11/28/19 20 2019 Inactive omeprazole 20 mg capsule,delayed release RxNorm: 695606 1 Capsule(s) Oral every day 11/20/19 20 2019 Inactive amoxicillin 250 mg capsule RxNorm: 480622 1 Capsule(s) Oral three times a day 02/05/2019 Inactive multivitamin with iron-mineral tablet RxNorm: 1 Tablet(s) Oral every day 10/29/19 20 2021 Inactive cetirizine 10 mg tablet RxNorm: 9618609 1 Tablet(s) PO daily 10/20/19 20 2019 Inactive This refill negates all other refills of this medication. Please do not auto refill Singulair 10 mg tablet RxNorm: 761790 1 Tablet(s) PO daily 10/20/19 20 2019 Inactive This refill negates all other refills of this medication gabapentin 300 mg capsule RxNorm: 404870 1 Capsule(s) PO TID 10/20/19 20 2019 Inactive lisinopril 2.5 mg tablet RxNorm: 662067 1 Tablet(s) PO daily 10/20/19 20 2019 Inactive levothyroxine 50 mcg tablet RxNorm: 215080 1 Tablet(s) PO daily 10/20/192019 Inactive This refill negates all other refills of this medication fenugreek seed extract 500 mg capsule RxNorm: 1 Capsule(s) Oral three times a day 10/17/19 20 2021 Inactive hydrochlorothiazide 25 mg tablet RxNorm: 904223 1 Tablet(s) Oral every day 10/17/19 20 2019 Inactive Alcohol Prep Pads RxNorm: 426302 1 Patch TOP QAM 10/16/19 20 2020 Inactive loperamide 2 mg tablet RxNorm: 019413 1 Tablet(s) Oral as needed take one [...] 2019 Inactive hydrochlorothiazide 25 mg tablet RxNorm: 665337 1 Tablet(s) Oral every day 09/19/20 19 2019 Inactive Sudafed 12 Hour 120 mg tablet,extended release RxNorm: 9461979 1 Tablet(s) Oral every 12 hours as needed 09/11/20 19 2018 Inactive omeprazole 20 mg capsule,delayed release RxNorm: 582753 1 Capsule(s) Oral every day 09/07/20 19 2019 Inactive Sudafed 12 Hour 120 mg tablet,extended release RxNorm: 9514362 1 Tablet(s) Oral every 12 hours as needed 09/04/20 19 2018 Inactive pantoprazole 40 mg tablet,delayed release RxNorm: 726543 1 Tablet(s) Oral every day 08/24/20 19 2018 Inactive discontinue any other H2Blkr. and PPI albuterol sulfate 2.5 mg/3 mL (0.083 %) solution for nebulization RxNorm: 133827 1 Vial Inhalation every four hours as needed as needed for dyspnea 08/17/20 19 2019 Inactive 60/box. This refill negates all other refills of this medication. Please do not fill early. Please do not auto refill. Symbicort 160 mcg-4.5 mcg/actuation HFA aerosol inhaler RxNorm: 4796481 2 Puff(s) INH BID 08/17/20 19 No Stop Date Active Alcohol Prep Pads RxNorm: 526034 1 Patch TOP QAM 08/17/20 19 2019 Inactive Ventolin HFA 90 mcg/actuation aerosol inhaler RxNorm: 806244 2 Puff(s) INH QID 08/09/20 19 2019 Inactive Please do not fill early. Please do not auto refill. This refill negates all other refills of this medication True Metrix Glucose Test Strip RxNorm: 1 Test Strips Miscellaneous QAM 08/09/20 19 2019 Inactive 100/container atorvastatin 40 mg tablet RxNorm: 745597 1 Tablet(s) Oral every day 07/04/20 19 2019 Inactive levmetamfetamine 50 mg nasal inhaler RxNorm: 1 Unit(s) NASAL Q3-4H Do not use more than every 3 hours or 8 times/24hours 06/26/20 19 2021 Inactive Please do not auto refill. This refill negates all other refills of this medication buspirone 7.5 mg tablet RxNorm: 521144 1 Tablet(s) PO BID 06/26/20 19 2020 Inactive This refill negates all other refills of this medication hydrochlorothiazide 12.5 mg tablet RxNorm: 617802 1 Tablet(s) PO QAM 06/26/20 19 2019 Inactive Ventolin HFA 90 mcg/actuation aerosol inhaler RxNorm: 832487 2 Puff(s) INH QID 06/26/20 19 2018 Inactive Please do not fill early. Please do not auto refill. This refill negates all other refills of this medication Singulair 10 mg tablet RxNorm: 381513 1 Tablet(s) PO daily 06/26/20 19 2019 Inactive This refill negates all other refills of this medication cetirizine 10 mg tablet RxNorm: 4126829 1 Tablet(s) PO daily 06/26/20 19 2019 Inactive This refill negates all other refills of this medication. Please do not auto refill levothyroxine 50 mcg tablet RxNorm: 991512 1 Tablet(s) PO daily 06/26/20 19 2019 Inactive This refill negates all other refills of this medication diclofenac sodium 75 mg tablet,delayed release RxNorm: 578509 1 Tablet(s) PO BID 06/26/20 19 2019 Inactive This refill negates all other refills of this medication ranitidine 150 mg tablet RxNorm: 872638 1 Tablet(s) PO BID 06/26/20 19 2018 Inactive This refill negates all other refills of this medication Calcium 600-D3 Plus (mag-zinc) 600 mg calcium-800 unit-50 mg tablet RxNorm: 1 Tablet(s) PO daily take an additonal tablet for itching. 06/26/20 19 2018 Inactive This refill negates all other refills of this medication albuterol sulfate 2.5 mg/3 mL (0.083 %) solution for nebulization RxNorm: 472358 1 Vial INH QID 06/26/20 19 2018 Inactive 60/box. This refill negates all other refills of this medication. Please do not fill early. Please do not auto refill. lisinopril 2.5 mg tablet RxNorm: 129693 1 Tablet(s) PO daily 06/21/20 19 2019 Inactive gabapentin 300 mg capsule RxNorm: 087642 1 Capsule(s) PO TID 06/21/20 19 2019 Inactive atorvastatin 20 mg tablet RxNorm: 381042 1 Tablet(s) PO QHS 06/07/202018 Inactive This refill negates all other refills of this medication TRUEplus Lancets 30 gauge RxNorm: 1 Lancets Miscellaneous QAM 05/29/20 19 2018 Inactive 100/box gabapentin 300 mg capsule RxNorm: 913679 1 Capsule(s) PO TID 05/03/20 19 2018 Inactive Flintstones Complete (iron) 18 mg iron chewable tablet RxNorm: 1 Tablet(s) PO daily 04/04/20 19 2021 Inactive This refill negates all other refills of this medication gabapentin 300 mg capsule RxNorm: 710117 1 Capsule(s) PO TID as needed 02/01/202018 Inactive True Metrix Glucose Test Strip RxNorm: 1 Test Strips Miscellaneous [facility] 02/01/20 19 2018 Inactive 100/container Alcohol Prep Pads RxNorm: 221786 1 Patch TOP QAM 02/01/20 19 2018 Inactive TRUEplus Lancets 30 gauge RxNorm: 1 Lancets Miscellaneous QAM 02/01/20 19 2018 Inactive 100/box lisinopril 2.5 mg tablet RxNorm: 421789 1 Tablet(s) PO daily 12/28/19 19 2018 Inactive ranitidine 150 mg tablet RxNorm: 501330 1 Tablet(s) PO BID 10/21/19 19 2018 Inactive This refill negates all other refills of this medication albuterol sulfate 2.5 mg/3 mL (0.083 %) solution for nebulization RxNorm: 806626 1 Vial INH QID 10/21/19 19 2018 [...] this medication gabapentin 300 mg capsule RxNorm: 345225 1 Capsule(s) PO TID as needed 10/21/19 19 2018 Inactive atorvastatin 20 mg tablet RxNorm: 159037 1 Tablet(s) PO QHS 10/21/192018 Inactive This refill negates all other refills of this medication trazodone 50 mg tablet RxNorm: 319991 1 Tablet(s) PO QHS 10/21/192018 Inactive This refill negates all other refills of this medication Ventolin HFA 90 mcg/actuation aerosol inhaler RxNorm: 371636 2 Puff(s) INH QID 10/21/192018 Inactive Please do not fill early. Please do not auto refill. This refill negates all other refills of this medication Calcium 600-D3 Plus 600 mg calcium-800 unit-50 mg tablet RxNorm: 1 Tablet(s) PO daily take an additonal tablet for itching. 10/21/192018 Inactive This refill negates all other refills of this medication Singulair 10 mg tablet RxNorm: 009157 1 Tablet(s) PO daily 10/21/192018 Inactive This refill negates all other refills of this medication buspirone 7.5 mg tablet RxNorm: 090386 1 Tablet(s) PO BID 10/21/192018 Inactive This refill negates all other refills of this medication diclofenac sodium 75 mg tablet,delayed release RxNorm: 872045 1 Tablet(s) PO BID 10/21/19 19 2018 Inactive This refill negates all other refills of this medication hydrochlorothiazide 12.5 mg tablet RxNorm: 572543 1 Tablet(s) PO QAM 10/21/19 19 2018 Inactive metoprolol succinate ER 50 mg tablet,extended release 24 hr RxNorm: 475017 1 Tablet(s) PO daily 10/21/19 19 2018 Inactive This refill negates all other refills of this medication levothyroxine 50 mcg tablet RxNorm: 379003 1 Tablet(s) PO daily 10/21/19 19 2018 Inactive This refill negates all other refills of this medication cetirizine 10 mg tablet RxNorm: 0342517 1 Tablet(s) PO daily 10/21/19 19 2018 Inactive This refill negates all other refills of this medication. Please do not auto refill Flintstones Complete (iron) 18 mg iron chewable tablet RxNorm: 1 Tablet(s) PO daily 10/21/19 19 2018 Inactive This refill negates all other refills of this medication buspirone 7.5 mg tablet RxNorm: 592681 1 Tablet(s) PO BID 10/12/19 19 2018 Inactive cetirizine 10 mg tablet RxNorm: 2849211 1 Tablet(s) PO daily 09/28/202018 Inactive Guaiasorb DM 10 mg-100 mg/5 mL oral liquid RxNorm: 898180 10 Milliliter(s) PO As needed every 4 hr 09/24/202018 Inactive Vicks Vaporub 4.7 %-1.2 %-2.6 % topical ointment RxNorm: 6776762 1 Application TOP TID 09/24/20 18 2018 Inactive levmetamfetamine 50 mg nasal inhaler RxNorm: 1 Unit(s) NASAL Q3-4H 09/24/20 18 2017 Inactive sertraline 50 mg tablet RxNorm: 938917 1 Tablet(s) PO daily 09/09/20 18 2018 Inactive Please note dose trazodone 50 mg tablet RxNorm: 306038 1 Tablet(s) PO QHS 09/06/20 18 2018 Inactive sertraline 50 mg tablet RxNorm: 905966 1 Tablet(s) PO daily 09/06/20 18 2017 Inactive amoxicillin 500 mg tablet RxNorm: 019615 1 Tablet(s) PO Q12H 08/31/20 18 2017 Inactive albuterol sulfate 2.5 mg/3 mL (0.083 %) solution for nebulization RxNorm: 084129 1 Vial INH QID 08/10/20 18 2018 Inactive 60/box. Please do not fill early. Please do not auto refill. Prozac 10 mg capsule RxNorm: 364294 1 Capsule(s) PO daily 08/09/20 18 2017 Inactive buspirone 7.5 mg tablet RxNorm: 304995 1 Tablet(s) PO BID 08/09/20 18 2018 Inactive gabapentin 300 mg capsule RxNorm: 463475 1 Capsule(s) PO TID as needed 08/01/20 18 2018 Inactive hydrochlorothiazide 12.5 mg tablet RxNorm: 886925 1 Tablet(s) PO QAM 08/01/20 18 2018 Inactive ranitidine 150 mg tablet RxNorm: 432224 1 Tablet(s) PO BID 08/01/20 18 2018 Inactive Macrobid 100 mg capsule RxNorm: 054680 1 Capsule(s) PO Q12H 06/21/20 18 2017 Inactive Singulair 10 mg tablet RxNorm: 745949 1 Tablet(s) PO daily 06/14/20 18 2018 Inactive Ventolin HFA 90 mcg/actuation aerosol inhaler RxNorm: 6853305 2 Puff(s) INH QID 06/14/20 18 2018 Inactive Singulair 10 mg tablet RxNorm: 575527 1 Tablet(s) PO daily 06/14/20 18 2017 Inactive buspirone 7.5 mg tablet RxNorm: 329736 1 Tablet(s) PO BID 06/14/20 18 2017 Inactive Prozac 10 mg capsule RxNorm: 042675 1 Capsule(s) PO daily 06/14/20 18 2017 Inactive Neilmed Pediatric Sinus Rinse Refill packet RxNorm: 1 Unit Dose NASAL PRN 05/31/20 18 2021 Inactive diclofenac sodium 75 mg tablet,delayed release RxNorm: 852660 1 Tablet(s) PO BID 05/31/20 18 2017 Inactive lisinopril 2.5 mg tablet RxNorm: 708615 1 Tablet(s) PO daily 05/31/20 18 2017 Inactive metoprolol succinate ER 50 mg tablet,extended release 24 hr RxNorm: 243906 1 Tablet(s) PO daily 05/31/20 18 2017 Inactive levothyroxine 50 mcg tablet RxNorm: 001416 1 Tablet(s) PO daily 05/31/20 18 2017 Inactive TRUEplus Lancets 30 gauge RxNorm: 1 Lancets Miscellaneous QAM 05/31/20 18 2017 Inactive 100/box Ventolin HFA 90 mcg/actuation aerosol inhaler RxNorm: 173290 2 Puff(s) INH QID 05/31/20 18 2017 Inactive Aleve 220 mg capsule RxNorm: 4827105 1 Capsule(s) PO BID 05/31/20 18 2018 Inactive ranitidine 150 mg tablet RxNorm: 916779 1 Tablet(s) PO BID 05/31/20 18 2017 Inactive gabapentin 300 mg capsule RxNorm: 679291 1 Capsule(s) PO TID as needed 05/31/20 18 2017 Inactive atorvastatin 20 mg tablet RxNorm: 083187 1 Tablet(s) PO QHS 05/31/20 18 2017 Inactive True Metrix Glucose Test Strip RxNorm: 1 Test Strips Miscellaneous QAM 05/31/20 18 2017 Inactive 50/container Calcium 600-D3 Plus 600 mg calcium-800 unit-50 mg tablet RxNorm: 1 Tablet(s) PO daily take an additonal tablet for itching. 05/31/20 18 2017 Inactive hydrochlorothiazide 12.5 mg tablet RxNorm: 447243 1 Tablet(s) PO QAM 05/31/20 18 2017 Inactive Flintstones Complete (iron) 18 mg iron chewable tablet RxNorm: 1 Tablet(s) PO daily 05/31/20 18 2017 Inactive d-mannose oral powder RxNorm: PO 18 2021 Inactive True Metrix Glucose Meter RxNorm: miscellaneous 08/17/20 19 2018 Inactive sertraline 50 mg tablet RxNorm: 218908 1 Tablet(s) PO daily 11/28/19 20 2019 Inactive loperamide 2 mg tablet RxNorm: 046686 oral 09/29/20 19 2018 Inactive Symbicort 160 mcg-4.5 mcg/actuation HFA aerosol inhaler RxNorm: 5497717 2 Puff(s) INH BID 08/17/20 19 2018 Inactive Medication Administered No Medication Administered data Procedures Procedure Codes Date Tobacco Assessment/Screening CPT-4: T[facility] CPT-4: DFRA01/01/2020Functional AssessmentCPT-4: DFA01/01/2020[place] Fany AssessmentCPT-4: DSWA11/28/2019Patient Health QuestionnaireCPT-4: DPHQ11/28/2019 [place] Fany AssessmentCPT-4: DSWA10/17/2019HypertensionCPT-4: HTN10/17/2019 [facility] CPT-4: DFRA09/19/2019Functional AssessmentCPT-4: DFA111/20/2018Urinalysis, dip stickCPT-4: 866868206/21/2019Tobacco Assessment/ScreeningCPT-4: TCA05/24/2019 Patient Health QuestionnaireCPT-4: DPHQ05/24/2019AHA/REBECCA Classification AssessmentCPT-4: DAHA04/25/2019Controlled Substance ReportCPT-4: CTRSU04/25/2019 Urinalysis, dip stickCPT-4: 018671403/28/2019Urinalysis, dip stickCPT-4: 24875 03/28/20191145L0C-BpxjeazjngrrpygXHM-1: 72392NtfdqaoG1B-ZbkmxynyohisckmSSI-8: 42915 UtdykeyP4K-PowmjrryiebcjbmYHC-0: 25553PjwlbkgZmwdgvhwyi ReferralSNOMED CT: 797883055 CPT-4: A15Xpwwlcz Reason For Visit No Reason For Visit data Plan of Care Planned Activity Notes Codes Status Date Referral: Pending Gynecology Referral Informatio n Referral ProcessedReferral: Pending Pulmonology Referral InformationReferralProcessed Referral: Pending Psychiatry Referral InformationReferralInitiatedReferral: Pending Respiratory Services Referral InformationReferralInitiatedReferral: Pending Ophthalmology Referral InformationReferralInitiatedReferral: [facility] WPtel: [address] [place] [address] [address] [address] USWriter placed a call out to the patient to notify her that it has been recommended that she be seenby 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 Patient agreed to be seen, does not have a provider of choice and no transportationissues. [employer] faxed referral and clinical notes to [facility] in [place], [place] near the patient's home. Patient to [...] seen and prefers a provider in the [place] or [facility]. [employer] placed a call out to everyone listed in the area and the only location that was able to accept the patient's insurance was [place] [address] [place] [address] and spoke with Maylin. Maylin asked that the patient's referral, face sheet and visit notes be faxed to . [employer] faxed over requested documents. Patient appointment confirmation letter generated and mailed to her home address. Patient to call to schedule an appointment.ProcessedReferral: [facility] WPtel: [address] [id number] USPatient notified that it has been advised that she be seen by Neurology. Patient agreed to be seen and prefers to be seen by a provider in the [place], [place] area. Patient denies any concerns with transportation, and prefers to schedule her own appointment. [employer] placed a call out to [facility] and spoke with Neeraj [...]
--- OUTSIDE RECORDS SUMMARY | 2023-12-07 02:11 | XMS_ITS | CCD ---
Author Name Leena Culver NP Address [address] [place] [address] [place] [address] Phone Organization [email or web address] [facility] Phone Care Team Providers Care Java Technical Manager Name Role Phone Anna Culver NP Primary Care Provider Unav ailable Unavailable Chronic Care Management Unavaila ble Summary Purpose DataExchange Insurance Providers Payer name Policy type / Coverage type Covered green party ID Effective Begin Date Effective End Date SUKI MAYO [id number] Unknown Unknown Family history Mother Diagnosis Age [...] 05/31/2018 Education level Unknown Some High School 10th05/31/20189406MhhbkazyocRvcnifmIagxnoyjwe38/29/2018Tobacco historySNOMED CT: 223432088Akt never smoked or chewed sbotwan5905/31/2018Alcohol historySNOMED CT: 037524238Kwvxt drinks pmgydii7605/31/2018Has the patient ever used illegal drugs? UnknownHas never used illegal drugs05/31/2018DNR Order/ Advanced Directive UnknownFull Code05/31/2018 Allergies, Adverse Reactions, Alerts Substance Reaction Codes Entered Date Inactivated Date Status *No known food allergies Axooosk1409/06/2018No Inactive DateActiveMethylprednisolonehivesRxNorm: 6902 09/06/2018No Inactive DateActive Problems Condition Codes Effective Dates Condition St atus Essential (primary) hypertension ICD-10: I10 ICD-9: 401.9010/03/2018ActiveType 2 diabetes mellitus with peripheral neuropathy ICD-10: [...] 493.9011ActiveObstructive sleep apnea (adult) (pediatric)ICD-10: G47.33 ICD-9: 327.2309/ActiveChronic [...] malignant neoplasm of cervixICD-10: Z12.4 ICD-9: V76.207/ActiveOther fpc (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ICD-10: Z79.899 ICD-9: V58.6907/ActiveChest pain, unspecifiedICD-10: R07.9 ICD-9: 786.5002/ActiveEncounter for preprocedural cardiovascular examinationICD-10: Z01.810 ICD-9: V72.8106/ActiveDyspnea, unspecifiedICD-10: R06.00 ICD-9: 786.0905ActivePost-traumatic stress disorder, unspecifiedICD-10: F43.10 ICD-9: 309.8112ActiveWheezingICD-10: R06.2 ICD-9: 786.0711ActiveAbnormal electrocardiogram [ECG] [EKG]ICD-10: R94.31 ICD-9: 794.3108/ActiveEdema, unspecifiedICD-10: R60.9 ICD-9: 782.310ActiveHeadacheICD-10: R51 ICD-9: 784.001/10/2018ActiveLong term (current) use of non-steroidal anti- inflammatories (NSAID)ICD-10: Z79.1 ICD-9: V58.6409Active Medications Medication Codes Instructions Start Date Stop Date Status Fill Instructions cetirizine 10 mg tablet RxNorm: 2482073 1 Tablet(s) PO daily 01/17/20 20 2019 Inactive loperamide 2 mg tablet RxNorm: 302677 1 Tablet(s) Oral as needed take one tablet after each loose stool, maximum of 8 tablets in 24 hours 01/17/20 20 2019 Inactive quetiapine 100 mg tablet RxNorm: 970687 1 Tablet(s) Oral every night at bedtime 01/17/20 20 2019 Inactive levothyroxine 50 mcg tablet RxNorm: 522485 1 Tablet(s) PO daily 01/17/20 20 2020 Inactive gabapentin 300 mg capsule RxNorm: 025476 1 Capsule(s) PO TID 01/17/202019 Inactive lisinopril 2.5 mg tablet RxNorm: 835230 1 Tablet(s) PO daily 01/15/20 20 2020 Inactive Singulair 10 mg tablet RxNorm: 951798 1 Tablet(s) PO daily 01/15/20 20 2020 Inactive levothyroxine 50 mcg tablet RxNorm: 264099 1 Tablet(s) PO daily 01/15/20 20 2019 Inactive gabapentin 300 mg capsule RxNorm: 707201 1 Capsule(s) PO TID 01/15/20 20 2019 Inactive cetirizine 10 mg tablet RxNorm: 3867396 1 Tablet(s) PO daily 01/15/20 20 2019 Inactive gentamicin 0.3 % eye drops RxNorm: 479320 1 Drop(s) ophthalmic (eye) four times a day 12/29/19 20 2019 Inactive gentamicin 0.3 % eye drops RxNorm: 724437 1 Drop(s) ophthalmic (eye) four times a day 12/29/19 20 2019 Inactive gentamicin 0.3 % eye drops RxNorm: 152412 1 Drop(s) ophthalmic (eye) four times a day 12/29/19 20 2019 Inactive hydrochlorothiazide 25 mg tablet RxNorm: 504809 1 Tablet(s) Oral every day 12/21/19 20 2019 Inactive Sudafed 12 Hour 120 mg tablet,extended release RxNorm: 5782040 TAKE (1) TABLET BY MOUTH EVERY 12 HOURS NEEDED 12/21/19 20 2019 Inactive loperamide 2 mg tablet RxNorm: 313705 1 Tablet(s) Oral as needed take one tablet after each loose stool, maximum of 8 tablets in 24 hours 12/11/19 20 2019 Inactive loperamide 2 mg tablet RxNorm: 703661 1 Tablet(s) Oral as needed take one tablet after each loose stool, maximum of 8 tablets in 24 hours 12/11/19 20 2019 Inactive atorvastatin 40 mg tablet RxNorm: 320925 1 Tablet(s) Oral every day 11/29/19 20 2020 Inactive sertraline 100 mg tablet RxNorm: 702565 1 Tablet(s) Oral 11/28/19 20 2019 Inactive quetiapine 100 mg tablet RxNorm: 293110 1 Tablet(s) Oral every night at bedtime 11/28/19 20 2019 Inactive omeprazole 20 mg capsule,delayed release RxNorm: 891868 1 Capsule(s) Oral every day 11/20/19 20 2019 Inactive amoxicillin 250 mg capsule RxNorm: 789787 1 Capsule(s) Oral three times a day 11/07/19 20 2019 Inactive multivitamin with iron-mineral tablet RxNorm: 1 Tablet(s) Oral every day 10/29/192021 Inactive cetirizine 10 mg tablet RxNorm: 2728022 1 Tablet(s) PO daily 10/20/192019 Inactive This refill negates all other refills of this medication. Please do not auto refill Singulair 10 mg tablet RxNorm: 046283 1 Tablet(s) PO daily 10/20/192019 Inactive This refill negates all other refills of this medication gabapentin 300 mg capsule RxNorm: 874707 1 Capsule(s) PO TID 10/20/19 20 2019 Inactive lisinopril 2.5 mg tablet RxNorm: 307416 1 Tablet(s) PO daily 10/20/19 2019 Inactive levothyroxine 50 mcg tablet RxNorm: 142062 1 Tablet(s) PO daily 10/20/19 20 2019 Inactive This refill negates all other refills of this medication fenugreek seed extract 500 mg capsule RxNorm: 1 Capsule(s) Oral three times a day 10/17/19 20 2021 Inactive hydrochlorothiazide 25 mg tablet RxNorm: 099990 1 Tablet(s) Oral every day 10/17/19 20 2019 Inactive Alcohol Prep Pads RxNorm: 487868 1 Patch TOP QAM 10/16/19 20 2020 Inactive loperamide 2 mg tablet RxNorm: 153330 1 Tablet(s) Oral as needed take one [...] 2019 Inactive hydrochlorothiazide 25 mg tablet RxNorm: 201511 1 Tablet(s) Oral every day 09/19/202019 Inactive Sudafed 12 Hour 120 mg tablet,extended release RxNorm: 9281558 1 Tablet(s) Oral every 12 hours as needed 09/11/20 19 2018 Inactive omeprazole 20 mg capsule,delayed release RxNorm: 397560 1 Capsule(s) Oral every day 09/07/20 19 2019 Inactive Sudafed 12 Hour 120 mg tablet,extended release RxNorm: 7398374 1 Tablet(s) Oral every 12 hours as needed 09/04/20 19 2018 Inactive pantoprazole 40 mg tablet,delayed release RxNorm: 357393 1 Tablet(s) Oral every day 08/24/20 19 2018 Inactive discontinue any other H2Blkr. and PPI albuterol sulfate 2.5 mg/3 mL (0.083 %) solution for nebulization RxNorm: 771696 1 Vial Inhalation every four hours as needed as needed for dyspnea 08/17/20 19 2019 Inactive 60/box. This refill negates all other refills of this medication. Please do not fill early. Please do not auto refill. Symbicort 160 mcg-4.5 mcg/actuation HFA aerosol inhaler RxNorm: 1044947 2 Puff(s) INH BID 08/17/20 19 No Stop Date Active Alcohol Prep Pads RxNorm: 094055 1 Patch TOP QAM 08/17/20 19 2019 Inactive True Metrix Glucose Test Strip RxNorm: 1 Test Strips Miscellaneous QAM 08/09/20 19 2019 Inactive 100/container Ventolin HFA 90 mcg/actuation aerosol inhaler RxNorm: 964004 2 Puff(s) INH QID 08/09/20 19 2019 Inactive Please do not fill early. Please do not auto refill. This refill negates all other refills of this medication atorvastatin 40 mg tablet RxNorm: 415584 1 Tablet(s) Oral every day 07/04/20 19 2019 Inactive levmetamfetamine 50 mg nasal inhaler RxNorm: 1 Unit(s) NASAL Q3-4H Do not use more than every 3 hours or 8 times/24hours 06/26/20 19 2021 Inactive Please do not auto refill. This refill negates all other refills of this medication diclofenac sodium 75 mg tablet,delayed release RxNorm: 154534 1 Tablet(s) PO BID 06/26/20 19 2019 Inactive This refill negates all other refills of this medication buspirone 7.5 mg tablet RxNorm: 817177 1 Tablet(s) PO BID 06/26/20 19 2020 Inactive This refill negates all other refills of this medication hydrochlorothiazide 12.5 mg tablet RxNorm: 769075 1 Tablet(s) PO QAM 06/26/20 19 2019 Inactive Ventolin HFA 90 mcg/actuation aerosol inhaler RxNorm: 782220 2 Puff(s) INH QID 06/26/20 19 2018 Inactive Please do not fill early. Please do not auto refill. This refill negates all other refills of this medication Singulair 10 mg tablet RxNorm: 607088 1 Tablet(s) PO daily 06/26/20 19 2019 Inactive This refill negates all other refills of this medication cetirizine 10 mg tablet RxNorm: 8673092 1 Tablet(s) PO daily 06/26/20 19 2019 Inactive This refill negates all other refills of this medication. Please do not auto refill levothyroxine 50 mcg tablet RxNorm: 422219 1 Tablet(s) PO daily 06/26/20 19 2019 Inactive This refill negates all other refills of this medication ranitidine 150 mg tablet RxNorm: 320595 1 Tablet(s) PO BID 06/26/20 19 2018 Inactive This refill negates all other refills of this medication Calcium 600-D3 Plus (mag-zinc) 600 mg calcium-800 unit-50 mg tablet RxNorm: 1 Tablet(s) PO daily take an additonal tablet for itching. 06/26/20 19 2018 Inactive This refill negates all other refills of this medication albuterol sulfate 2.5 mg/3 mL (0.083 %) solution for nebulization RxNorm: 812409 1 Vial INH QID 06/26/20 19 2018 Inactive 60/box. This refill negates all other refills of this medication. Please do not fill early. Please do not auto refill. lisinopril 2.5 mg tablet RxNorm: 996091 1 Tablet(s) PO daily 06/21/20 19 2019 Inactive gabapentin 300 mg capsule RxNorm: 017786 1 Capsule(s) PO TID 06/21/20 19 2019 Inactive atorvastatin 20 mg tablet RxNorm: 704024 1 Tablet(s) PO QHS 06/07/20 19 2018 Inactive This refill negates all other refills of this medication TRUEplus Lancets 30 gauge RxNorm: 1 Lancets Miscellaneous QAM 05/29/20 19 2018 Inactive 100/box gabapentin 300 mg capsule RxNorm: 776944 1 Capsule(s) PO TID 05/03/20 19 2018 Inactive César Complete (iron) 18 mg iron chewable tablet RxNorm: 1 Tablet(s) PO daily 04/04/202021 Inactive This refill negates all other refills of this medication gabapentin 300 mg capsule RxNorm: 685957 1 Capsule(s) PO TID as needed 02/01/20 19 2018 Inactive True Metrix Glucose Test Strip RxNorm: 1 Test Strips Miscellaneous QA 02/01/20 19 2018 Inactive 100/container Alcohol Prep Pads RxNorm: 892158 1 Patch TOP QA 02/01/20 19 2018 Inactive TRUEplus Lancets 30 gauge RxNorm: 1 Lancets Miscellaneous QAM 02/01/20 19 2018 Inactive 100/box lisinopril 2.5 mg tablet RxNorm: 716227 1 Tablet(s) PO daily 12/28/19 19 2018 Inactive ranitidine 150 mg tablet RxNorm: 810235 1 Tablet(s) PO BID 10/21/19 19 2018 Inactive This refill negates all other refills of this medication albuterol sulfate 2.5 mg/3 mL (0.083 %) solution for nebulization RxNorm: 665763 1 Vial INH QID 10/21/192018 Inactive 60/box. [...] this medication gabapentin 300 mg capsule RxNorm: 701209 1 Capsule(s) PO TID as needed 10/21/192018 Inactive atorvastatin 20 mg tablet RxNorm: 170218 1 Tablet(s) PO QHS 10/21/192018 Inactive This refill negates all other refills of this medication trazodone 50 mg tablet RxNorm: 177741 1 Tablet(s) PO QHS 10/21/192018 Inactive This refill negates all other refills of this medication Ventolin HFA 90 mcg/actuation aerosol inhaler RxNorm: 690667 2 Puff(s) INH QID 10/21/192018 Inactive Please do not fill early. Please do not auto refill. This refill negates all other refills of this medication Calcium 600-D3 Plus 600 mg calcium-800 unit-50 mg tablet RxNorm: 1 Tablet(s) PO daily take an additonal tablet for itching. 10/21/192018 Inactive This refill negates all other refills of this medication Singulair 10 mg tablet RxNorm: 311186 1 Tablet(s) PO daily 10/21/192018 Inactive This refill negates all other refills of this medication buspirone 7.5 mg tablet RxNorm: 179939 1 Tablet(s) PO BID 10/21/192018 Inactive This refill negates all other refills of this medication diclofenac sodium 75 mg tablet,delayed release RxNorm: 563451 1 Tablet(s) PO BID 10/21/192018 Inactive This refill negates all other refills of this medication hydrochlorothiazide 12.5 mg tablet RxNorm: 295449 1 Tablet(s) PO QAM 10/21/192018 Inactive metoprolol succinate ER 50 mg tablet,extended release 24 hr RxNorm: 487286 1 Tablet(s) PO daily 10/21/192018 Inactive This refill negates all other refills of this medication levothyroxine 50 mcg tablet RxNorm: 006423 1 Tablet(s) PO daily 10/21/192018 Inactive This refill negates all other refills of this medication cetirizine 10 mg tablet RxNorm: 3942424 1 Tablet(s) PO daily 10/21/19 19 2018 Inactive This refill negates all other refills of this medication. Please do not auto refill Flnickolas Complete (iron) 18 mg iron chewable tablet RxNorm: 1 Tablet(s) PO daily 10/21/19 19 2018 Inactive This refill negates all other refills of this medication buspirone 7.5 mg tablet RxNorm: 833558 1 Tablet(s) PO BID 10/12/19 19 2018 Inactive cetirizine 10 mg tablet RxNorm: 4486831 1 Tablet(s) PO daily 09/28/20 18 2018 Inactive Guaiasorb DM 10 mg-100 mg/5 mL oral liquid RxNorm: 508275 10 Milliliter(s) PO As needed every 4 hr 09/24/20 18 2018 Inactive Vicks Vaporub 4.7 %-1.2 %-2.6 % topical ointment RxNorm: 5415126 1 Application TOP TID 09/24/20 18 2018 Inactive levmetamfetamine 50 mg nasal inhaler RxNorm: 1 Unit(s) NASAL Q3-4H 09/24/20 18 2017 Inactive sertraline 50 mg tablet RxNorm: 015975 1 Tablet(s) PO daily 09/09/20 18 2018 Inactive Please note dose trazodone 50 mg tablet RxNorm: 132914 1 Tablet(s) PO QHS 09/06/20 18 2018 Inactive sertraline 50 mg tablet RxNorm: 316229 1 Tablet(s) PO daily 09/06/20 18 2017 Inactive amoxicillin 500 mg tablet RxNorm: 689578 1 Tablet(s) PO Q12H 08/31/20 18 2017 Inactive albuterol sulfate 2.5 mg/3 mL (0.083 %) solution for nebulization RxNorm: 140150 1 Vial INH QID 08/10/20 18 2018 Inactive 60/box. Please do not fill early. Please do not auto refill. Prozac 10 mg capsule RxNorm: 152182 1 Capsule(s) PO daily 08/09/20 18 2017 Inactive buspirone 7.5 mg tablet RxNorm: 440597 1 Tablet(s) PO BID 08/09/20 18 2018 Inactive gabapentin 300 mg capsule RxNorm: 811772 1 Capsule(s) PO TID as needed 08/01/20 18 2018 Inactive hydrochlorothiazide 12.5 mg tablet RxNorm: 271205 1 Tablet(s) PO QAM 08/01/20 18 2018 Inactive ranitidine 150 mg tablet RxNorm: 091285 1 Tablet(s) PO BID 08/01/20 18 2018 Inactive Macrobid 100 mg capsule RxNorm: 953470 1 Capsule(s) PO Q12H 06/21/20 18 2017 Inactive Singulair 10 mg tablet RxNorm: 594777 1 Tablet(s) PO daily 06/14/20 18 2018 Inactive Ventolin HFA 90 mcg/actuation aerosol inhaler RxNorm: 6827970 2 Puff(s) INH QID 06/14/20 18 2018 Inactive Singulair 10 mg tablet RxNorm: 324305 1 Tablet(s) PO daily 06/14/20 18 2017 Inactive buspirone 7.5 mg tablet RxNorm: 151226 1 Tablet(s) PO BID 06/14/20 18 2017 Inactive Prozac 10 mg capsule RxNorm: 624364 1 Capsule(s) PO daily 06/14/20 18 2017 Inactive Neilmed Pediatric Sinus Rinse Refill packet RxNorm: 1 Unit Dose NASAL PRN 05/31/20 18 2021 Inactive diclofenac sodium 75 mg tablet,delayed release RxNorm: 198875 1 Tablet(s) PO BID 05/31/20 18 2017 Inactive lisinopril 2.5 mg tablet RxNorm: 062760 1 Tablet(s) PO daily 05/31/20 18 2017 Inactive metoprolol succinate ER 50 mg tablet,extended release 24 hr RxNorm: 989538 1 Tablet(s) PO daily 05/31/20 18 2017 Inactive levothyroxine 50 mcg tablet RxNorm: 759324 1 Tablet(s) PO daily 05/31/20 18 2017 Inactive TRUEplus Lancets 30 gauge RxNorm: 1 Lancets Miscellaneous QAM 05/31/20 18 2017 Inactive 100/box Ventolin HFA 90 mcg/actuation aerosol inhaler RxNorm: 693868 2 Puff(s) INH QID 05/31/20 18 2017 Inactive Aleve 220 mg capsule RxNorm: 8311955 1 Capsule(s) PO BID 05/31/20 18 2018 Inactive ranitidine 150 mg tablet RxNorm: 738135 1 Tablet(s) PO BID 05/31/20 18 2017 Inactive gabapentin 300 mg capsule RxNorm: 905021 1 Capsule(s) PO TID as needed 05/31/20 18 2017 Inactive atorvastatin 20 mg tablet RxNorm: 947254 1 Tablet(s) PO QHS 05/31/20 18 2017 Inactive True Metrix Glucose Test Strip RxNorm: 1 Test Strips Miscellaneous QA 05/31/20 18 2017 Inactive 50/container Calcium 600-D3 Plus 600 mg calcium-800 unit-50 mg tablet RxNorm: 1 Tablet(s) PO daily take an additonal tablet for itching. 05/31/20 18 2017 Inactive hydrochlorothiazide 12.5 mg tablet RxNorm: 538678 1 Tablet(s) PO QAM 05/31/20 18 2017 Inactive Flintstones Complete (iron) 18 mg iron chewable tablet RxNorm: 1 Tablet(s) PO daily 05/31/20 18 2017 Inactive d-mannose oral powder RxNorm: PO 18 2021 Inactive True Metrix Glucose Meter RxNorm: miscellaneous 08/17/20 19 2018 Inactive sertraline 50 mg tablet RxNorm: 460670 1 Tablet(s) PO daily 11/28/19 20 2019 Inactive loperamide 2 mg tablet RxNorm: 099311 oral 09/29/20 19 2018 Inactive Symbicort 160 mcg-4.5 mcg/actuation HFA aerosol inhaler RxNorm: 4796946 2 Puff(s) INH BID 08/17/20 19 2018 Inactive Medication Administered No Medication Administered data Procedures Procedure Codes Date Tobacco Assessment/Screening CPT-4: TCA Fall Risk Assessment SNOMED CT: 05465373 4 CPT-4: DFRA01/01/2020Functional AssessmentCPT-4: DFA01/01/2020Semmes Fany AssessmentCPT-4: DSWA11/28/2019Patient Health QuestionnaireCPT-4: DPHQ11/28/2019 Embarrass Fany AssessmentCPT-4: DSWA10/17/2019HypertensionCPT-4: HTN10/17/[address]: 858815316 CPT-4: DFRA09/19/2019Functional AssessmentCPT-4: DFA111/20/2018Urinalysis, dip stickCPT-4: 873415006/21/2019Tobacco Assessment/ScreeningCPT-4: TCA05/24/2019 Patient Health QuestionnaireCPT-4: DPHQ05/24/2019AHA/REBECCA Classification AssessmentCPT-4: DAHA04/25/2019Controlled Substance ReportCPT-4: CTRSU04/25/2019 Urinalysis, dip stickCPT-4: 865430303/28/2019Urinalysis, dip stickCPT-4: 64014 03/28/20195067T5Z-TykicnmbxjxyecaOBB-9: 69331SmcgdknV6Y-UrzesidjpklykmvOYJ-8: [address]: 203819000 CPT-4: O47Knmdmsm Vital Signs Date Vital 01/24/2020 BMI: 55.9 Code: 54724-1 Height: 4'11 Code: 8302-2 Weight: 277 lbs Code: 26699-8 Reason For Visit Reason For Visit Effective Dates Notes hypertension 01/24/2020 diabetes mellitus 01/24/2020 Interim health update 01/24/2020 Encounters Encounter Performer Location Location Address Codes Magdi e ([id number]) (EST PT) [place] FOCUSED TELEHEALTH VISIT Diagnosis: Type 2 diabetes mellitus with peripheral neuropathy[ICD10: E11.42] Diagnosis: Essential (primary) hypertension[ICD10: I10]Anna Bourgeois [id number] [facility] [address] [place], [place] [address]YSW-7: 32707 01/24/2020 Plan of Care Planned Activity Notes Codes Status Date Visit Plan: patient with I phone able to participate in visual and audio telehealth visit R57-317.2 Syncope and collapse denies any recent episodes advise to check BS when feeling light headed E11.42-250.60 Type 2 diabetes mellitus with peripheral neuropathy range 89-120, tries to keep BS around 90-varied times of the day 10/17/2019 Hemoglobin A1C 6.0 07/04/2019 Hgb A1C 5.6 10/17/2019 Inocente Soares 04/11-instructed on good daily foot care Note callous formation to bilateral heels-instruct on application of lotion to feet routine follow up with , podiatry-diabetic shoe received routine podiatry ophthalmology referral initiated 01/01/2020 FRA [...] Will refer to urology had appointment 10/25/2019 G47.33-327.23 Obstructive sleep apnea (adult) (pediatric) J45.909-493.90 Asthma Recent ED visit for difficulty breathing-records requested continue inhalers and nebulizer wears cpap every night, believes that is helpful 10/22/2019 Dr. 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 01/24/2020Patient Education: BcfnzqzqmoanCvcwuiuxk75/23/2020Patient Education: RshrufhxLiusdfjea97/23/2020Patient Education: Patient Medication Summary Gmwbaseop98/23/2020Appointment: Anna Culver WPtel: [id number] [place] [address] [id number]: Anna Culver WPtel: [address] [place] [address] [id number]: Anna Culver WPtel: [address] [place] [address] [id number]: Anna Culver WPtel: [address] [place] [address] [id number]: Sudha Hernadez WPtel: [address] [facility] [address] [id number]: Sudha Hernadez WPtel: [address] [facility] [address] [id number]: Charlene Oropeza WPtel: [address] [facility] [address] [id number]: Danny, OrdfgjV13358/26/2019Appointment: Charlene Oropeza WPtel: [address] [facility] b [id number]: Javy Rasta WPtel: [address] [facility] [id number]: Daltonrichsang Rasta WPtel: [address] [facility] b [id number]: Javy Rasta WPtel: [address] [facility] b [id number]: Javy Rasta WPtel: [address] [facility] b [id number]: Pending Gynecology Referral InformationReferral ProcessedReferral: Pending Pulmonology Referral InformationReferralProcessed Referral: Pending Psychiatry Referral InformationReferralInitiatedReferral: Pending Respiratory Services Referral InformationReferralInitiatedReferral: Pending Ophthalmology Referral InformationReferralInitiatedReferral: [facility] WPtel: [address] [place], [place] [id number] USWriter placed a call out to the patient to notify her that it has been recommended that she be seenby a urologist. Patient agreed to be seen, does not have a provider of choice and no transportationissues. Operating Room Specialist faxed referral and clinical notes to [facility] in [place], [place] near the patient's home. Patient to [...] seen and prefers a provider in the [place] or [place] area. Operating Room Specialist placed a call out to everyone listed in the area and the only location that was able to accept the patient's insurance was [place] [address] [place] [address] and spoke with Maylin. Maylin asked that the patient's referral, face sheet and visit notes be faxed to . Operating Room Specialist faxed over requested documents. Patient appointment confirmation letter generated and mailed to her home address. Patient to call to schedule an appointment.ProcessedReferral: [facility] WPtel: [address] [place] [address] [place], [place] [id number] USPatient notified that it has been advised that she be seen by Neurology. Patient agreed to be seen and prefers to be seen by a provider in the [place], [place] area. Patient denies any concerns with transportation, and prefers to schedule her own appointment. Operating Room Specialist placed a call out to [facility] and spoke with Neeraj P: who confirmed that their office is able to acceptnew patients and the patient's insurance. After confirming the providers fax number, quality analyst/technical writer faxed over the patient's referral, and [...] participate in visual and audio telehealth visit R55-780.2 Syncope and collapse denies any recent episodes advise to check BS when feeling light headed E11.42-250.60 Type 2 diabetes mellitus with peripheral neuropathy range 89-120, tries to keep BS around 90-varied times of the day 10/17/2019 Hemoglobin A1C 6.0; 07/04/2019 Hgb A1C 5.6 10/17/2019 Inocente Soares 7/10-instructed on good daily foot care Note callous formation to bilateral heels-instruct on application of lotion to feet routine follow up with Dr. Gonzales, podiatry-diabetic shoe received routine podiatry ophthalmology referral initiated 01/01/2020 FRA [...] Will refer to urology had appointment 10/25/2019 G47.33-327.23 Obstructive sleep apnea (adult) (pediatric); J45.909-493.90 Asthma Recent ED visit for difficulty breathing-records requested continue inhalers and nebulizer wears cpap every night, believes that is helpful 10/22/2019 Dr. 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 01/24/2020 Medical Equipment No Medical Equipment data Advance Directives No Advance Directive data
--- OUTSIDE RECORDS SUMMARY | 2023-12-07 02:11 | XMS_ITS | CCD ---
Author Name Leena Culver NP Address [address] [place] [address] [place] [phone] Phone Organization [email or web address] [facility] Phone Care Team Providers Care Supervisor Adult Education Name Role Phone Anna Culver NP Primary Care Provider Unav ailable Unavailable Chronic Care Management Unavaila ble Summary Purpose DataExchange Insurance Providers Payer name Policy type / Coverage type Covered republican ID Effective Begin Date Effective End Date SUKI MAYO [id number] Unknown Unknown Family history Mother Diagnosis Age [...] 05/31/2018 Education level Unknown Some High School 10th05/31/20182996TeutoacjdhAmlvpssCxtnhqtgmr20/29/2018Tobacco historySNOMED CT: 380337021Xix never smoked or chewed cguacfg3805/31/2018Alcohol historySNOMED CT: 468247419Yijpk drinks hwerswg4705/31/2018Has the patient ever used illegal drugs? UnknownHas never used illegal drugs05/31/2018DNR Order/ Advanced Directive UnknownFull Code05/31/2018 Allergies, Adverse Reactions, Alerts Substance Reaction Codes Entered Date Inactivated Date Status *No known food allergies Pomacym6109/06/2018No Inactive DateActiveMethylprednisolonehivesRxNorm: 6902 09/06/2018No Inactive DateActive Problems Condition Codes Effective Dates Condition St atus Chronic kidney disease, unspecified ICD- 10: N18.9 ICD-9: 585.909ActiveHypertensive heart disease with heart failureICD-10: I11.0 ICD-9: 402.9107/ActiveType 2 diabetes mellitus with peripheral neuropathy ICD-10: E11.42 ICD-9: 250.6002ActiveAdult BMI 50.0-59.9 kg/sq mICD-10: Z68.43 ICD-9: V85.4308/ActiveEssential (primary) hypertensionICD-10: I10 ICD-9: 401.901/10/2018ActiveAbrasion of toeICD-10: S90.416A ICD-9: 917.005/ActiveEncounter for screening for malignant neoplasm of cervixICD-10: Z12.4 ICD-9: V76.207ActiveObstructive sleep apnea (adult) (pediatric)ICD-10: G47.33 ICD-9: 327.2309/ActiveEncounter [...] ICD-9: 356.908/ActivePatient Not SeenICD-10: UXZ.01 ICD-9: XZ0.107ActiveOther terminologist (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ICD-10: Z79.899 ICD-9: V58.6907ActiveChest pain, [...] 12 Hour 120 mg tablet,extended release RxNorm: 6036276 TAKE 1 TABLET BY MOUTH EVERY 12 HOURS NEEDED 03/14/20 20 2019 Inactive True Metrix Glucose Test Strip RxNorm: 1 Test Strips Miscellaneous every morning 03/13/20 20 2019 Inactive 100/container loperamide 2 mg tablet RxNorm: 806830 1 Tablet(s) Oral as needed take one tablet after each loose stool, maximum of 8 tablets in 24 hours 02/22/20 20 2019 Inactive True Metrix Glucose Test Strip RxNorm: 1 Test Strips Miscellaneous QAM 02/22/20 20 2019 Inactive 100/container cetirizine 10 mg tablet RxNorm: 1133925 1 Tablet(s) PO daily 01/17/20 20 2019 Inactive levothyroxine 50 mcg tablet RxNorm: 269617 1 Tablet(s) PO daily 01/17/20 20 2020 Inactive gabapentin 300 mg capsule RxNorm: 868129 1 Capsule(s) PO TID 01/17/20 20 2019 Inactive loperamide 2 mg tablet RxNorm: 070686 1 Tablet(s) Oral as needed take one tablet after each loose stool, maximum of 8 tablets in 24 hours 01/17/20 20 2019 Inactive quetiapine 100 mg tablet RxNorm: 631891 1 Tablet(s) Oral every night at bedtime 01/17/20 20 2019 Inactive lisinopril 2.5 mg tablet RxNorm: 958199 1 Tablet(s) PO daily 01/15/20 20 2020 Inactive Singulair 10 mg tablet RxNorm: 691044 1 Tablet(s) PO daily 01/15/20 20 2020 Inactive levothyroxine 50 mcg tablet RxNorm: 930593 1 Tablet(s) PO daily 01/15/20 20 2019 Inactive gabapentin 300 mg capsule RxNorm: 109833 1 Capsule(s) PO TID 01/15/20 20 2019 Inactive cetirizine 10 mg tablet RxNorm: 0193113 1 Tablet(s) PO daily 01/15/20 20 2019 Inactive gentamicin 0.3 % eye drops RxNorm: 516837 1 Drop(s) ophthalmic (eye) four times a day 12/29/19 20 2019 Inactive gentamicin 0.3 % eye drops RxNorm: 415418 1 Drop(s) ophthalmic (eye) four times a day 12/29/19 20 2019 Inactive gentamicin 0.3 % eye drops RxNorm: 890251 1 Drop(s) ophthalmic (eye) four times a day 12/29/19 20 2019 Inactive hydrochlorothiazide 25 mg tablet RxNorm: 816980 1 Tablet(s) Oral every day 12/21/19 20 2019 Inactive Sudafed 12 Hour 120 mg tablet,extended release RxNorm: 0087351 TAKE (1) TABLET BY MOUTH EVERY 12 HOURS NEEDED 12/21/19 20 2019 Inactive loperamide 2 mg tablet RxNorm: 042689 1 Tablet(s) Oral as needed take one tablet after each loose stool, maximum of 8 tablets in 24 hours 12/11/19 20 2019 Inactive loperamide 2 mg tablet RxNorm: 410854 1 Tablet(s) Oral as needed take one tablet after each loose stool, maximum of 8 tablets in 24 hours 12/11/19 20 2019 Inactive atorvastatin 40 mg tablet RxNorm: 357858 1 Tablet(s) Oral every day 11/29/19 20 2020 Inactive sertraline 100 mg tablet RxNorm: 677664 1 Tablet(s) Oral 11/28/19 20 2019 Inactive quetiapine 100 mg tablet RxNorm: 471668 1 Tablet(s) Oral every night at bedtime 11/28/19 20 2019 Inactive omeprazole 20 mg capsule,delayed release RxNorm: 627276 1 Capsule(s) Oral every day 11/20/19 20 2019 Inactive amoxicillin 250 mg capsule RxNorm: 202358 1 Capsule(s) Oral three times a day 11/07/19 20 2019 Inactive multivitamin with iron-mineral tablet RxNorm: 1 Tablet(s) Oral every day 10/29/19 20 2021 Inactive cetirizine 10 mg tablet RxNorm: 8333615 1 Tablet(s) PO daily 10/20/19 20 2019 Inactive This refill negates all other refills of this medication. Please do not auto refill Singulair 10 mg tablet RxNorm: 977859 1 Tablet(s) PO daily 10/20/192019 Inactive This refill negates all other refills of this medication gabapentin 300 mg capsule RxNorm: 760056 1 Capsule(s) PO TID 10/20/192019 Inactive lisinopril 2.5 mg tablet RxNorm: 092788 1 Tablet(s) PO daily 10/20/19 20 2019 Inactive levothyroxine 50 mcg tablet RxNorm: 960025 1 Tablet(s) PO daily 10/20/192019 Inactive This refill negates all other refills of this medication fenugreek seed extract 500 mg capsule RxNorm: 1 Capsule(s) Oral three times a day 10/17/19 20 2021 Inactive hydrochlorothiazide 25 mg tablet RxNorm: 067572 1 Tablet(s) Oral every day 10/17/19 20 2019 Inactive Alcohol Prep Pads RxNorm: 915107 1 Patch TOP QAM 10/16/19 20 2020 Inactive loperamide 2 mg tablet RxNorm: 276638 1 Tablet(s) Oral as needed take one [...] 2019 Inactive hydrochlorothiazide 25 mg tablet RxNorm: 528764 1 Tablet(s) Oral every day 09/19/20 19 2019 Inactive Sudafed 12 Hour 120 mg tablet,extended release RxNorm: 9941964 1 Tablet(s) Oral every 12 hours as needed 09/11/20 19 2018 Inactive omeprazole 20 mg capsule,delayed release RxNorm: 918648 1 Capsule(s) Oral every day 09/07/20 19 2019 Inactive Sudafed 12 Hour 120 mg tablet,extended release RxNorm: 5657884 1 Tablet(s) Oral every 12 hours as needed 09/04/20 19 2018 Inactive pantoprazole 40 mg tablet,delayed release RxNorm: 935556 1 Tablet(s) Oral every day 08/24/202018 Inactive discontinue any other H2Blkr. and PPI albuterol sulfate 2.5 mg/3 mL (0.083 %) solution for nebulization RxNorm: 583553 1 Vial Inhalation every four hours as needed as needed for dyspnea 08/17/20 19 2019 Inactive 60/box. This refill negates all other refills of this medication. Please do not fill early. Please do not auto refill. Symbicort 160 mcg-4.5 mcg/actuation HFA aerosol inhaler RxNorm: 4033742 2 Puff(s) INH BID 08/17/20 19 No Stop Date Active Alcohol Prep Pads RxNorm: 442724 1 Patch TOP QAM 08/17/20 19 2019 Inactive Ventolin HFA 90 mcg/actuation aerosol inhaler RxNorm: 562066 2 Puff(s) INH QID 08/09/20 19 2019 Inactive Please do not fill early. Please do not auto refill. This refill negates all other refills of this medication True Metrix Glucose Test Strip RxNorm: 1 Test Strips Miscellaneous QAM 08/09/20 19 2019 Inactive 100/container atorvastatin 40 mg tablet RxNorm: 889610 1 Tablet(s) Oral every day 07/04/20 19 2019 Inactive levmetamfetamine 50 mg nasal inhaler RxNorm: 1 Unit(s) NASAL Q3-4H Do not use more than every 3 hours or 8 times/24hours 06/26/20 19 2021 Inactive Please do not auto refill. This refill negates all other refills of this medication diclofenac sodium 75 mg tablet,delayed release RxNorm: 586396 1 Tablet(s) PO BID 06/26/20 19 2019 Inactive This refill negates all other refills of this medication buspirone 7.5 mg tablet RxNorm: 351065 1 Tablet(s) PO BID 06/26/20 19 2020 Inactive This refill negates all other refills of this medication hydrochlorothiazide 12.5 mg tablet RxNorm: 057267 1 Tablet(s) PO QAM 06/26/20 19 2019 Inactive Ventolin HFA 90 mcg/actuation aerosol inhaler RxNorm: 130948 2 Puff(s) INH QID 06/26/20 19 2018 Inactive Please do not fill early. Please do not auto refill. This refill negates all other refills of this medication Singulair 10 mg tablet RxNorm: 856654 1 Tablet(s) PO daily 06/26/20 19 2019 Inactive This refill negates all other refills of this medication cetirizine 10 mg tablet RxNorm: 8256129 1 Tablet(s) PO daily 06/26/20 19 2019 Inactive This refill negates all other refills of this medication. Please do not auto refill levothyroxine 50 mcg tablet RxNorm: 935939 1 Tablet(s) PO daily 06/26/20 19 2019 Inactive This refill negates all other refills of this medication ranitidine 150 mg tablet RxNorm: 227446 1 Tablet(s) PO BID 06/26/20 19 2018 Inactive This refill negates all other refills of this medication Calcium 600-D3 Plus (mag-zinc) 600 mg calcium-800 unit-50 mg tablet RxNorm: 1 Tablet(s) PO daily take an additonal tablet for itching. 06/26/20 19 2018 Inactive This refill negates all other refills of this medication albuterol sulfate 2.5 mg/3 mL (0.083 %) solution for nebulization RxNorm: 209387 1 Vial INH QID 06/26/20 19 2018 Inactive 60/box. This refill negates all other refills of this medication. Please do not fill early. Please do not auto refill. lisinopril 2.5 mg tablet RxNorm: 194844 1 Tablet(s) PO daily 06/21/20 19 2019 Inactive gabapentin 300 mg capsule RxNorm: 337891 1 Capsule(s) PO TID 06/21/20 19 2019 Inactive atorvastatin 20 mg tablet RxNorm: 265746 1 Tablet(s) PO QHS 06/07/202018 Inactive This refill negates all other refills of this medication TRUEplus Lancets 30 gauge RxNorm: 1 Lancets Miscellaneous QAM 05/29/20 19 2018 Inactive 100/box gabapentin 300 mg capsule RxNorm: 892967 1 Capsule(s) PO TID 05/03/20 19 2018 Inactive Flintstones Complete (iron) 18 mg iron chewable tablet RxNorm: 1 Tablet(s) PO daily 04/04/202021 Inactive This refill negates all other refills of this medication gabapentin 300 mg capsule RxNorm: 915442 1 Capsule(s) PO TID as needed 02/01/20 19 2018 Inactive True Metrix Glucose Test Strip RxNorm: 1 Test Strips Miscellaneous [facility] 02/01/20 19 2018 Inactive 100/container Alcohol Prep Pads RxNorm: 645633 1 Patch TOP QA 02/01/20 19 2018 Inactive TRUEplus Lancets 30 gauge RxNorm: 1 Lancets Miscellaneous QAM 02/01/20 19 2018 Inactive 100/box lisinopril 2.5 mg tablet RxNorm: 118808 1 Tablet(s) PO daily 12/28/19 19 2018 Inactive ranitidine 150 mg tablet RxNorm: 862986 1 Tablet(s) PO BID 10/21/19 19 2018 Inactive This refill negates all other refills of this medication albuterol sulfate 2.5 mg/3 mL (0.083 %) solution for nebulization RxNorm: 565648 1 Vial INH QID 10/21/192018 Inactive 60/box. [...] this medication gabapentin 300 mg capsule RxNorm: 500194 1 Capsule(s) PO TID as needed 10/21/19 19 2018 Inactive atorvastatin 20 mg tablet RxNorm: 528250 1 Tablet(s) PO QHS 10/21/192018 Inactive This refill negates all other refills of this medication trazodone 50 mg tablet RxNorm: 117348 1 Tablet(s) PO QHS 10/21/192018 Inactive This refill negates all other refills of this medication Ventolin HFA 90 mcg/actuation aerosol inhaler RxNorm: 927850 2 Puff(s) INH QID 10/21/192018 Inactive Please do not fill early. Please do not auto refill. This refill negates all other refills of this medication Calcium 600-D3 Plus 600 mg calcium-800 unit-50 mg tablet RxNorm: 1 Tablet(s) PO daily take an additonal tablet for itching. 10/21/192018 Inactive This refill negates all other refills of this medication Singulair 10 mg tablet RxNorm: 780347 1 Tablet(s) PO daily 10/21/192018 Inactive This refill negates all other refills of this medication buspirone 7.5 mg tablet RxNorm: 328091 1 Tablet(s) PO BID 10/21/192018 Inactive This refill negates all other refills of this medication diclofenac sodium 75 mg tablet,delayed release RxNorm: 012291 1 Tablet(s) PO BID 10/21/19 19 2018 Inactive This refill negates all other refills of this medication hydrochlorothiazide 12.5 mg tablet RxNorm: 799555 1 Tablet(s) PO QAM 10/21/19 19 2018 Inactive metoprolol succinate ER 50 mg tablet,extended release 24 hr RxNorm: 472826 1 Tablet(s) PO daily 10/21/19 19 2018 Inactive This refill negates all other refills of this medication levothyroxine 50 mcg tablet RxNorm: 193572 1 Tablet(s) PO daily 10/21/19 19 2018 Inactive This refill negates all other refills of this medication cetirizine 10 mg tablet RxNorm: 2005010 1 Tablet(s) PO daily 10/21/19 19 2018 Inactive This refill negates all other refills of this medication. Please do not auto refill Flintstones Complete (iron) 18 mg iron chewable tablet RxNorm: 1 Tablet(s) PO daily 10/21/192018 Inactive This refill negates all other refills of this medication buspirone 7.5 mg tablet RxNorm: 858088 1 Tablet(s) PO BID 10/12/192018 Inactive cetirizine 10 mg tablet RxNorm: 7535916 1 Tablet(s) PO daily 09/28/202018 Inactive Guaiasorb DM 10 mg-100 mg/5 mL oral liquid RxNorm: 924179 10 Milliliter(s) PO As needed every 4 hr 09/24/202018 Inactive Vicks Vaporub 4.7 %-1.2 %-2.6 % topical ointment RxNorm: 6609198 1 Application TOP TID 09/24/20 18 2018 Inactive levmetamfetamine 50 mg nasal inhaler RxNorm: 1 Unit(s) NASAL Q3-4H 09/24/20 18 2017 Inactive sertraline 50 mg tablet RxNorm: 961273 1 Tablet(s) PO daily 09/09/20 18 2018 Inactive Please note dose trazodone 50 mg tablet RxNorm: 483956 1 Tablet(s) PO QHS 09/06/20 18 2018 Inactive sertraline 50 mg tablet RxNorm: 901753 1 Tablet(s) PO daily 09/06/20 18 2017 Inactive amoxicillin 500 mg tablet RxNorm: 777402 1 Tablet(s) PO Q12H 08/31/20 18 2017 Inactive albuterol sulfate 2.5 mg/3 mL (0.083 %) solution for nebulization RxNorm: 863834 1 Vial INH QID 08/10/20 18 2018 Inactive 60/box. Please do not fill early. Please do not auto refill. Prozac 10 mg capsule RxNorm: 332908 1 Capsule(s) PO daily 08/09/20 18 2017 Inactive buspirone 7.5 mg tablet RxNorm: 950521 1 Tablet(s) PO BID 08/09/20 18 2018 Inactive gabapentin 300 mg capsule RxNorm: 237147 1 Capsule(s) PO TID as needed 08/01/20 18 2018 Inactive hydrochlorothiazide 12.5 mg tablet RxNorm: 949359 1 Tablet(s) PO QAM 08/01/20 18 2018 Inactive ranitidine 150 mg tablet RxNorm: 398267 1 Tablet(s) PO BID 08/01/20 18 2018 Inactive Macrobid 100 mg capsule RxNorm: 418945 1 Capsule(s) PO Q12H 06/21/20 18 2017 Inactive Singulair 10 mg tablet RxNorm: 100861 1 Tablet(s) PO daily 06/14/20 18 2018 Inactive Ventolin HFA 90 mcg/actuation aerosol inhaler RxNorm: 1454344 2 Puff(s) INH QID 06/14/20 18 2018 Inactive Singulair 10 mg tablet RxNorm: 574377 1 Tablet(s) PO daily 06/14/20 18 2017 Inactive buspirone 7.5 mg tablet RxNorm: 633319 1 Tablet(s) PO BID 06/14/20 18 2017 Inactive Prozac 10 mg capsule RxNorm: 779449 1 Capsule(s) PO daily 06/14/20 18 2017 Inactive Neilmed Pediatric Sinus Rinse Refill packet RxNorm: 1 Unit Dose NASAL PRN 05/31/20 18 2021 Inactive diclofenac sodium 75 mg tablet,delayed release RxNorm: 238085 1 Tablet(s) PO BID 05/31/20 18 2017 Inactive lisinopril 2.5 mg tablet RxNorm: 400624 1 Tablet(s) PO daily 05/31/20 18 2017 Inactive metoprolol succinate ER 50 mg tablet,extended release 24 hr RxNorm: 950252 1 Tablet(s) PO daily 05/31/20 18 2017 Inactive levothyroxine 50 mcg tablet RxNorm: 854132 1 Tablet(s) PO daily 05/31/20 18 2017 Inactive TRUEplus Lancets 30 gauge RxNorm: 1 Lancets Miscellaneous QAM 05/31/20 18 2017 Inactive 100/box Ventolin HFA 90 mcg/actuation aerosol inhaler RxNorm: 096974 2 Puff(s) INH QID 05/31/20 18 2017 Inactive Aleve 220 mg capsule RxNorm: 9453510 1 Capsule(s) PO BID 05/31/20 18 2018 Inactive ranitidine 150 mg tablet RxNorm: 047097 1 Tablet(s) PO BID 05/31/20 18 2017 Inactive gabapentin 300 mg capsule RxNorm: 124372 1 Capsule(s) PO TID as needed 05/31/20 18 2017 Inactive atorvastatin 20 mg tablet RxNorm: 859726 1 Tablet(s) PO QHS 05/31/20 18 2017 Inactive True Metrix Glucose Test Strip RxNorm: 1 Test Strips Miscellaneous QAM 05/31/20 18 2017 Inactive 50/container Calcium 600-D3 Plus 600 mg calcium-800 unit-50 mg tablet RxNorm: 1 Tablet(s) PO daily take an additonal tablet for itching. 05/31/20 18 2017 Inactive hydrochlorothiazide 12.5 mg tablet RxNorm: 256810 1 Tablet(s) PO QAM 05/31/20 18 2017 Inactive Flintstonbree Complete (iron) 18 mg iron chewable tablet RxNorm: 1 Tablet(s) PO daily 05/31/20 18 2017 Inactive d-mannose oral powder RxNorm: PO 18 2021 Inactive True Metrix Glucose Meter RxNorm: miscellaneous 08/17/20 19 2018 Inactive sertraline 50 mg tablet RxNorm: 385686 1 Tablet(s) PO daily 11/28/19 20 2019 Inactive loperamide 2 mg tablet RxNorm: 011755 oral 09/29/20 19 2018 Inactive Symbicort 160 mcg-4.5 mcg/actuation HFA aerosol inhaler RxNorm: 8832756 2 Puff(s) INH BID 08/17/20 19 2018 Inactive Medication Administered No Medication Administered data Results Observation Observation Code Item Item Code Result Date S ervice Location S5V-ZNXCEUBDMHAPW IN 4548-4 Glyco HGB A1C 74509-1 5.6 % 04/14/2020 [facility] [address] [place], [place] [address]J7B-EMHLAURCQJKQDBL3930-7nVB24580-1299 mg/dL04/14/2020 [facility] [address] [place], [place] [address]XZNO 14 (METABOLIC PANEL)63771Vozyjkm4061-949 mg/dL04/14/2020 [facility] [address] [place], [place] [address]MQJV 14 (METABOLIC PANEL)02198RQS0279-211 mg/dL04/14/2020 [facility] [address] [place], [place] [address]RYGJ 14 (METABOLIC PANEL)33429Jhncgoajnr8033-14.6 mg/dL04/14/2020 [facility] [address] [place], [place] [address]CLMM 14 (METABOLIC PANEL)22703HTR/Creat Nfakz9421-340.807 [facility] [address] [place], [place] [address]GWBM 14 (METABOLIC PANEL)37998VHT Lvydcmgpz56630-4332 mL/min/1.73m2 04/14/2020 [facility] [address] [place], [place] [address]OJHK 14 (METABOLIC PANEL)78170PBJ Estimated for Americans [address] mL/min/1.42v00004/14/2020 [facility] [address] [place], [place] [address]ZZCA 14 (METABOLIC PANEL)01487Eyszvh4503-9987 mmol/L04/14/2020 [facility] [address] [place], [place] [address]MFCD 14 (METABOLIC PANEL)68864Dkqhstohj2786-40.8 mmol/L04/14/2020 [facility] [address] [place], [place] [address]BQGQ 14 (METABOLIC PANEL)08235Udbukubx4345-8628 mmol/L04/14/2020 [facility] [address] [place], [place] [address]VVYU 14 (METABOLIC PANEL)82156Fzbhh QI30734-177 mmol/L04/14/2020 [facility] [address] [place], [place] [address]GIPW 14 (METABOLIC PANEL)19422Ibual Wsm7124-856.8 mEq/L04/14/2020 [facility] [address] [place], [place] [address]XEVF 14 (METABOLIC PANEL)38105Yqasrrdiie Serum Yquwygjxpl04840-7909 mOsm/kg04/14/2020 [facility] [address] [place], [place] [address]EIBR 14 (METABOLIC PANEL)08637Xsdfejh94912-62.9 g/dL04/14/2020 [facility] [address] [place], [place] [address]OGOB 14 (METABOLIC PANEL)175[address]Cbalf Bvirpfw0406-85.3 g/dL04/14/2020 [facility] [address] [place] [address]CRPO 14 (METABOLIC PANEL)09902Bsomzcfc8916-90.4 g/dL04/14/2020 [facility] [address] [place], [place] [address]FASL 14 (METABOLIC PANEL)22992Ahboyds/Globulin Uhoxq7399-23.1 04/14/2020 [facility] [address] [place], [place] [address]CNKV 14 (METABOLIC PANEL)62641XIY JQEK9827-202.00 U/L04/14/2020 [facility] [address] [place], [place] [address]HBFL 14 (METABOLIC PANEL)60[address]VDTE/BOM6196-514 U/L04/14/2020 [facility] [address] [place], [place] [address]RQKB 14 (METABOLIC PANEL)01968AZSA/NYX4597-685 U/L04/14/2020 [facility] [address] [place] [address]MNNV 14 (METABOLIC PANEL)[address]Xuwhd Ajsvawdrq5695-09.4 mg/dL 04/14/2020 [facility] [address] [place] [address]FZYE 14 (METABOLIC PANEL)11308Pcrgavi45760-73.9 mg/dL04/14/2020 [facility] [address] [place] [address]FYVN 14 (METABOLIC PANEL)83777Ojhmxszkg Daqkppc82040-58.1 mg/dL 04/14/2020 [facility] [address] [place] [address]VINDQTNAIY35858Thgjxszagp9610-72.9 mg/dL04/14/2020 [facility] [address] [place] [address]RNVGPRUF CBC W/ DIFF GQC29744DGO3173-614.4 K/ul04/14/2020 [facility] [address] [place] [address]HGSHMOPW CBC W/ DIFF CYB72836PKP653-79.34 M/uL04/14/2020 [facility] [address] [place] [address]SAVDDKDA CBC W/ DIFF LFP56281Lkqncatzmj832-325.2 g/dL04/14/2020 [facility] [address] [place] [address]JOLZDYIA CBC W/ DIFF FUK29533Gekmorzvhp2850-098.0 %04/14/2020 [facility] [address] [place] [place] [address]ARNTHIHO CBC W/ DIFF USK76602XLX141-693.0 fL04/14/2020 [facility] [address] [place] [address]FJVLCMDJ CBC W/ DIFF KQS41240ORA352-936.2 pg04/14/2020 [facility] [address] [place] [address]FKRHKMTB CBC W/ DIFF WJF25237DOHC504-896.0 g/dL04/14/2020 [facility] [address] [place] [address]MCJYIGMN CBC W/ DIFF VEA66142LVY990-126.4 %04/14/2020 [facility] [address] [place] [address]AOZNFUOG CBC W/ DIFF BUI83914Enhxwuut Hkbvg228-1490 K/uL04/14/2020 [facility] [address] [place] [address]HKPTWUXZ CBC W/ DIFF KTV35955XSM10198-94.9 fL04/14/2020 [facility] [address] [place] [place] [address]AXIICKFM CBC W/ DIFF CFZ40371Zbdgpglcybm %770-869.6 %04/14/2020 [facility] [address] [place], [place] [address]NLPENEFA CBC W/ DIFF PCP91702Emrfmmtldiv %736-923.7 %04/14/2020 [facility] [address] [place], [place] [address]TIUGRDTI CBC W/ DIFF VQQ20634Zslzrmeng %5905-56.0 %04/14/2020 [facility] [address] [place], [place] [address]CIJDFOTE CBC W/ DIFF OVJ82872Qbcjkwhtcwe %713-80.2 %04/14/2020 [facility] [address] [place] [address]XHOTKTGP CBC W/ DIFF CFR60617Hdmlvpjpk%706-20.5 %04/14/2020 [facility] [address] [place] [address]MAUSJFDA CBC W/ DIFF BMA03542Lltaossd Uukveoacuy650-21425 /ul 04/14/2020 [facility] [address] [place], [place] [address]LNHVDAGE CBC W/ DIFF VWS81853Jqkswdxi Ncztkmawzz37609-32513 /ul 04/14/2020 [facility] [address] [place], [place] [address]FJQORFIP CBC W/ DIFF HBM56000Ixmmkkbg Tszxjfgo974-5889 /ul 04/14/2020 [facility] [address] [place], [place] [address]QVZBUXKP CBC W/ DIFF LRT50252Ridyzgwp Mounsqgsrs305-896 /ul 04/14/2020 [facility] [address] [place], [place] [address]NSYMVFLB CBC W/ DIFF BUW93240Uomkosgf Ewuliygq147-550 /ul04/14/2020 [facility] [address] [place], [place] [address]YITWNRPNY92366Kcrgykdbn51772-39.3 mg/dL04/14/2020 [facility] [address] [place] [address] Procedures Procedure Codes Date Tobacco Assessment/Screening CPT-4: TCA Fall Risk Assessment SNOMED CT: 14002294 4 CPT-4: DFRA01/01/2020Functional AssessmentCPT-4: DFA01/01/2020[place] Fany AssessmentCPT-4: DSWA11/28/2019Patient Health QuestionnaireCPT-4: DPHQ11/28/2019 [place] Fany AssessmentCPT-4: DSWA10/17/2019HypertensionCPT-4: HTN10/17/2019 [facility] CPT-4: DFRA09/19/2019Functional AssessmentCPT-4: DFA111/20/2018Urinalysis, dip stickCPT-4: 737782106/21/2019Tobacco Assessment/ScreeningCPT-4: TCA05/24/2019 Patient Health QuestionnaireCPT-4: DPHQ05/24/2019AHA/REBECCA Classification AssessmentCPT-4: DAHA04/25/2019Controlled Substance ReportCPT-4: CTRSU04/25/2019 Urinalysis, dip stickCPT-4: 236974003/28/2019Urinalysis, dip stickCPT-4: 31089 03/28/20199559O8P-LhfnxgrvdtmnuxdEER-0: 98802SaxnglnU4K-OvadlbxkhfcoaahWTO-5: 30392 ZqgsjjoK7X-LdpkrxuygpfqvkvZBM-2: 36576QrtzbppPrpajnioeq ReferralSNOMED CT: 311476498 CPT-4: K25Uqfocej Reason For Visit No Reason For Visit data Plan of Care Planned Activity Notes Codes Status Date Patient Education: Patient Medication Summary Jzjasggqh13/12/2020Appointment: Anna Culver WPtel: [address] [place] [address] [id number]: Anna Culver WPtel: [address] [place] [address] [id number]: Anna Culver WPtel: [address] [place] [address] [id number]: PalomoVamsiAnna WPtel: [phone] [place] [address] [place] [address] [id number]: PalomoVamsiAnna WPtel: [phone] [place] [address] [address] [place] [address] [id number]: Anna Culver WPtel: [address] [place] [address] [place] [address] [id number]: Anna Culver WPtel: [address] [place] [address] [place] [address] [id number]: Sudha Hernadez WPtel: [address] [facility] [address] [id number]: Sudha Hernadez WPtel: [address] [facility] [address] [id number]: SandipCharlene WPtel: [address] [facility] [id number]: Enedelia [id number]: Charlene Oropeza WPtel: [address] [facility] [address] [id number]: Javy Rasta WPtel: [address] [facility] [address] [id number]: Javy Rasta WPtel: [address] [facility] [address] [id number]: Javy Rasta WPtel: [address] [facility] [address] [id number]: Rasta Palafox WPtel: [address] [facility] [address] [id number]: Pending Gynecology Referral InformationReferral ProcessedReferral: Pending Pulmonology Referral InformationReferralProcessed Referral: Pending Psychiatry Referral InformationReferralInitiatedReferral: Pending Respiratory Services Referral InformationReferralInitiatedReferral: Pending Ophthalmology Referral InformationReferralInitiatedReferral: [facility] WPtel: [address] [facility] [address] [facility] USWriter placed a call out to the patient to notify her that it has been recommended that she be seenby a urologist. Patient agreed to be seen, does not have a provider of choice and no transportationissues. Ship Propeller Finisher faxed referral and clinical notes to [facility] in [place], [place] near the patient's home. Patient to [...] and prefers a provider in the [place] or [facility]. Ship Propeller Finisher placed a call out to everyone listed in the area and the only location that was able to accept the patient's insurance was [address] [address] and spoke with Maylin. Maylin asked that the patient's referral, face sheet and visit notes be faxed to . Ship Propeller Finisher faxed over requested documents. Patient appointment confirmation letter generated and mailed to her home address. Patient to call to schedule an appointment.ProcessedReferral: [facility] WPtel: [address] [place] [address] [address] [id number] USPatient notified that it has been advised that she be seen by Neurology. Patient agreed to be seen and prefers to be seen by a provider in the [place], [place] area. Patient denies any concerns with transportation, and prefers to schedule her own appointment. Ship Propeller Finisher placed a call out to [facility] and spoke with Neeraj P: who confirmed that their office is able to acceptnew patients and the patient's insurance. After confirming the providers fax number, abstract writer faxed over the patient's referral, and [...]
--- OUTSIDE RECORDS SUMMARY | 2023-12-07 02:11 | XMS_ITS | CCD ---
Author Name Leena Culver NP Address [address] [place] [address] [place] [address] Phone Organization [facility] Phone Care Team Providers Care Circulation Assistant Name Role Phone Anna Culver NP Primary Care Provider Unav ailable Unavailable Chronic Care Management Unavaila ble Summary Purpose DataExchange Insurance Providers Payer name Policy type / Coverage type Covered democrat ID Effective Begin Date Effective End Date SUKI MAYO [id number] Unknown Unknown Family history Mother Diagnosis Age [...] 05/31/2018 Education level Unknown Some High School 10th05/31/20189918QmjxypftjyTqqcyyhCngqkyplnu62/29/2018Tobacco historySNOMED CT: 862998678Jfy never smoked or chewed jyzjbjp0505/31/2018Alcohol historySNOMED CT: 404974007Ymqmt drinks nqjxhib4705/31/2018Has the patient ever used illegal drugs? UnknownHas never used illegal drugs05/31/2018DNR Order/ Advanced Directive UnknownFull Code05/31/2018 Allergies, Adverse Reactions, Alerts Substance Reaction Codes Entered Date Inactivated Date Status *No known food allergies Uicyoil2009/06/2018No Inactive DateActiveMethylprednisolonehivesRxNorm: 6902 09/06/2018No Inactive DateActive Problems [...] ICD-9: 356.908/ActivePatient Not SeenICD-10: UXZ.01 ICD-9: XZ0.107ActiveOther intermediate designer (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ICD-10: Z79.899 ICD-9: V58.6907ActiveChest pain, [...] 12 Hour 120 mg tablet,extended release RxNorm: 6962052 TAKE 1 TABLET BY MOUTH EVERY 12 HOURS NEEDED 03/14/20 20 2019 Inactive True Metrix Glucose Test Strip RxNorm: 1 Test Strips Miscellaneous every morning 03/13/20 20 2019 Inactive 100/container loperamide 2 mg tablet RxNorm: 302455 1 Tablet(s) Oral as needed take one tablet after each loose stool, maximum of 8 tablets in 24 hours 02/22/20 20 2019 Inactive True Metrix Glucose Test Strip RxNorm: 1 Test Strips Miscellaneous QAM 02/22/20 20 2019 Inactive 100/container cetirizine 10 mg tablet RxNorm: 7336534 1 Tablet(s) PO daily 01/17/20 20 2019 Inactive levothyroxine 50 mcg tablet RxNorm: 262291 1 Tablet(s) PO daily 01/17/20 20 2020 Inactive gabapentin 300 mg capsule RxNorm: 812673 1 Capsule(s) PO TID 01/17/20 20 2019 Inactive loperamide 2 mg tablet RxNorm: 412572 1 Tablet(s) Oral as needed take one tablet after each loose stool, maximum of 8 tablets in 24 hours 01/17/20 20 2019 Inactive quetiapine 100 mg tablet RxNorm: 672342 1 Tablet(s) Oral every night at bedtime 01/17/20 20 2019 Inactive lisinopril 2.5 mg tablet RxNorm: 694208 1 Tablet(s) PO daily 01/15/20 20 2020 Inactive Singulair 10 mg tablet RxNorm: 878973 1 Tablet(s) PO daily 01/15/20 20 2020 Inactive levothyroxine 50 mcg tablet RxNorm: 528162 1 Tablet(s) PO daily 01/15/20 20 2019 Inactive gabapentin 300 mg capsule RxNorm: 920878 1 Capsule(s) PO TID 01/15/20 20 2019 Inactive cetirizine 10 mg tablet RxNorm: 7441708 1 Tablet(s) PO daily 01/15/20 20 2019 Inactive gentamicin 0.3 % eye drops RxNorm: 769852 1 Drop(s) ophthalmic (eye) four times a day 12/29/19 20 2019 Inactive gentamicin 0.3 % eye drops RxNorm: 491748 1 Drop(s) ophthalmic (eye) four times a day 12/29/19 20 2019 Inactive gentamicin 0.3 % eye drops RxNorm: 805970 1 Drop(s) ophthalmic (eye) four times a day 12/29/19 20 2019 Inactive hydrochlorothiazide 25 mg tablet RxNorm: 494191 1 Tablet(s) Oral every day 12/21/19 20 2019 Inactive Sudafed 12 Hour 120 mg tablet,extended release RxNorm: 6014815 TAKE (1) TABLET BY MOUTH EVERY 12 HOURS NEEDED 12/21/19 20 2019 Inactive loperamide 2 mg tablet RxNorm: 832721 1 Tablet(s) Oral as needed take one tablet after each loose stool, maximum of 8 tablets in 24 hours 12/11/19 20 2019 Inactive loperamide 2 mg tablet RxNorm: 803295 1 Tablet(s) Oral as needed take one tablet after each loose stool, maximum of 8 tablets in 24 hours 12/11/19 20 2019 Inactive atorvastatin 40 mg tablet RxNorm: 177071 1 Tablet(s) Oral every day 11/29/19 20 2020 Inactive sertraline 100 mg tablet RxNorm: 735282 1 Tablet(s) Oral 11/28/19 20 2019 Inactive quetiapine 100 mg tablet RxNorm: 799558 1 Tablet(s) Oral every night at bedtime 11/28/19 20 2019 Inactive omeprazole 20 mg capsule,delayed release RxNorm: 315423 1 Capsule(s) Oral every day 11/20/19 20 2019 Inactive amoxicillin 250 mg capsule RxNorm: 917570 1 Capsule(s) Oral three times a day 11/07/19 20 2019 Inactive multivitamin with iron-mineral tablet RxNorm: 1 Tablet(s) Oral every day 10/29/19 20 2021 Inactive cetirizine 10 mg tablet RxNorm: 9386587 1 Tablet(s) PO daily 10/20/19 20 2019 Inactive This refill negates all other refills of this medication. Please do not auto refill Singulair 10 mg tablet RxNorm: 001924 1 Tablet(s) PO daily 10/20/192019 Inactive This refill negates all other refills of this medication gabapentin 300 mg capsule RxNorm: 746216 1 Capsule(s) PO TID 10/20/192019 Inactive lisinopril 2.5 mg tablet RxNorm: 316144 1 Tablet(s) PO daily 10/20/19 20 2019 Inactive levothyroxine 50 mcg tablet RxNorm: 035201 1 Tablet(s) PO daily 10/20/192019 Inactive This refill negates all other refills of this medication fenugreek seed extract 500 mg capsule RxNorm: 1 Capsule(s) Oral three times a day 10/17/19 20 2021 Inactive hydrochlorothiazide 25 mg tablet RxNorm: 487543 1 Tablet(s) Oral every day 10/17/19 20 2019 Inactive Alcohol Prep Pads RxNorm: 460835 1 Patch TOP QAM 10/16/19 20 2020 Inactive loperamide 2 mg tablet RxNorm: 130406 1 Tablet(s) Oral as needed take one [...] 2019 Inactive hydrochlorothiazide 25 mg tablet RxNorm: 168717 1 Tablet(s) Oral every day 09/19/20 19 2019 Inactive Sudafed 12 Hour 120 mg tablet,extended release RxNorm: 4994951 1 Tablet(s) Oral every 12 hours as needed 09/11/20 19 2018 Inactive omeprazole 20 mg capsule,delayed release RxNorm: 980039 1 Capsule(s) Oral every day 09/07/20 19 2019 Inactive Sudafed 12 Hour 120 mg tablet,extended release RxNorm: 1499669 1 Tablet(s) Oral every 12 hours as needed 09/04/20 19 2018 Inactive pantoprazole 40 mg tablet,delayed release RxNorm: 993477 1 Tablet(s) Oral every day 08/24/202018 Inactive discontinue any other H2Blkr. and PPI albuterol sulfate 2.5 mg/3 mL (0.083 %) solution for nebulization RxNorm: 444946 1 Vial Inhalation every four hours as needed as needed for dyspnea 08/17/20 19 2019 Inactive 60/box. This refill negates all other refills of this medication. Please do not fill early. Please do not auto refill. Symbicort 160 mcg-4.5 mcg/actuation HFA aerosol inhaler RxNorm: 9891445 2 Puff(s) INH BID 08/17/20 19 No Stop Date Active Alcohol Prep Pads RxNorm: 773814 1 Patch TOP QAM 08/17/20 19 2019 Inactive Ventolin HFA 90 mcg/actuation aerosol inhaler RxNorm: 663301 2 Puff(s) INH QID 08/09/20 19 2019 Inactive Please do not fill early. Please do not auto refill. This refill negates all other refills of this medication True Metrix Glucose Test Strip RxNorm: 1 Test Strips Miscellaneous QAM 08/09/20 19 2019 Inactive 100/container atorvastatin 40 mg tablet RxNorm: 821021 1 Tablet(s) Oral every day 07/04/20 19 2019 Inactive levmetamfetamine 50 mg nasal inhaler RxNorm: 1 Unit(s) NASAL Q3-4H Do not use more than every 3 hours or 8 times/24hours 06/26/20 19 2021 Inactive Please do not auto refill. This refill negates all other refills of this medication diclofenac sodium 75 mg tablet,delayed release RxNorm: 336521 1 Tablet(s) PO BID 06/26/20 19 2019 Inactive This refill negates all other refills of this medication buspirone 7.5 mg tablet RxNorm: 717296 1 Tablet(s) PO BID 06/26/20 19 2020 Inactive This refill negates all other refills of this medication hydrochlorothiazide 12.5 mg tablet RxNorm: 897263 1 Tablet(s) PO QAM 06/26/20 19 2019 Inactive Ventolin HFA 90 mcg/actuation aerosol inhaler RxNorm: 470567 2 Puff(s) INH QID 06/26/20 19 2018 Inactive Please do not fill early. Please do not auto refill. This refill negates all other refills of this medication Singulair 10 mg tablet RxNorm: 753559 1 Tablet(s) PO daily 06/26/20 19 2019 Inactive This refill negates all other refills of this medication cetirizine 10 mg tablet RxNorm: 3686828 1 Tablet(s) PO daily 06/26/20 19 2019 Inactive This refill negates all other refills of this medication. Please do not auto refill levothyroxine 50 mcg tablet RxNorm: 579860 1 Tablet(s) PO daily 06/26/20 19 2019 Inactive This refill negates all other refills of this medication ranitidine 150 mg tablet RxNorm: 229353 1 Tablet(s) PO BID 06/26/20 19 2018 Inactive This refill negates all other refills of this medication Calcium 600-D3 Plus (mag-zinc) 600 mg calcium-800 unit-50 mg tablet RxNorm: 1 Tablet(s) PO daily take an additonal tablet for itching. 06/26/20 19 2018 Inactive This refill negates all other refills of this medication albuterol sulfate 2.5 mg/3 mL (0.083 %) solution for nebulization RxNorm: 000631 1 Vial INH QID 06/26/20 19 2018 Inactive 60/box. This refill negates all other refills of this medication. Please do not fill early. Please do not auto refill. lisinopril 2.5 mg tablet RxNorm: 287719 1 Tablet(s) PO daily 06/21/20 19 2019 Inactive gabapentin 300 mg capsule RxNorm: 396680 1 Capsule(s) PO TID 06/21/20 19 2019 Inactive atorvastatin 20 mg tablet RxNorm: 954796 1 Tablet(s) PO QHS 06/07/202018 Inactive This refill negates all other refills of this medication TRUEplus Lancets 30 gauge RxNorm: 1 Lancets Miscellaneous QAM 05/29/20 19 2018 Inactive 100/box gabapentin 300 mg capsule RxNorm: 402870 1 Capsule(s) PO TID 05/03/20 19 2018 Inactive Flintstones Complete (iron) 18 mg iron chewable tablet RxNorm: 1 Tablet(s) PO daily 04/04/20 19 2021 Inactive This refill negates all other refills of this medication gabapentin 300 mg capsule RxNorm: 001905 1 Capsule(s) PO TID as needed 02/01/202018 Inactive True Metrix Glucose Test Strip RxNorm: 1 Test Strips Miscellaneous [facility] 02/01/20 19 2018 Inactive 100/container Alcohol Prep Pads RxNorm: 392878 1 Patch TOP QA 02/01/20 19 2018 Inactive TRUEplus Lancets 30 gauge RxNorm: 1 Lancets Miscellaneous QAM 02/01/20 19 2018 Inactive 100/box lisinopril 2.5 mg tablet RxNorm: 102332 1 Tablet(s) PO daily 12/28/19 19 2018 Inactive ranitidine 150 mg tablet RxNorm: 390538 1 Tablet(s) PO BID 10/21/19 19 2018 Inactive This refill negates all other refills of this medication albuterol sulfate 2.5 mg/3 mL (0.083 %) solution for nebulization RxNorm: 458594 1 Vial INH QID 10/21/19 19 2018 [...] this medication gabapentin 300 mg capsule RxNorm: 479687 1 Capsule(s) PO TID as needed 10/21/19 19 2018 Inactive atorvastatin 20 mg tablet RxNorm: 939934 1 Tablet(s) PO QHS 10/21/192018 Inactive This refill negates all other refills of this medication trazodone 50 mg tablet RxNorm: 465521 1 Tablet(s) PO QHS 10/21/192018 Inactive This refill negates all other refills of this medication Ventolin HFA 90 mcg/actuation aerosol inhaler RxNorm: 478339 2 Puff(s) INH QID 10/21/192018 Inactive Please do not fill early. Please do not auto refill. This refill negates all other refills of this medication Calcium 600-D3 Plus 600 mg calcium-800 unit-50 mg tablet RxNorm: 1 Tablet(s) PO daily take an additonal tablet for itching. 10/21/192018 Inactive This refill negates all other refills of this medication Singulair 10 mg tablet RxNorm: 113224 1 Tablet(s) PO daily 10/21/192018 Inactive This refill negates all other refills of this medication buspirone 7.5 mg tablet RxNorm: 658480 1 Tablet(s) PO BID 10/21/192018 Inactive This refill negates all other refills of this medication diclofenac sodium 75 mg tablet,delayed release RxNorm: 687422 1 Tablet(s) PO BID 10/21/19 19 2018 Inactive This refill negates all other refills of this medication hydrochlorothiazide 12.5 mg tablet RxNorm: 954013 1 Tablet(s) PO QAM 10/21/19 19 2018 Inactive metoprolol succinate ER 50 mg tablet,extended release 24 hr RxNorm: 899776 1 Tablet(s) PO daily 10/21/19 19 2018 Inactive This refill negates all other refills of this medication levothyroxine 50 mcg tablet RxNorm: 783811 1 Tablet(s) PO daily 10/21/19 19 2018 Inactive This refill negates all other refills of this medication cetirizine 10 mg tablet RxNorm: 4845998 1 Tablet(s) PO daily 10/21/19 19 2018 Inactive This refill negates all other refills of this medication. Please do not auto refill Flintstones Complete (iron) 18 mg iron chewable tablet RxNorm: 1 Tablet(s) PO daily 10/21/19 19 2018 Inactive This refill negates all other refills of this medication buspirone 7.5 mg tablet RxNorm: 545643 1 Tablet(s) PO BID 10/12/192018 Inactive cetirizine 10 mg tablet RxNorm: 9903226 1 Tablet(s) PO daily 09/28/20 18 2018 Inactive Guaiasorb DM 10 mg-100 mg/5 mL oral liquid RxNorm: 306159 10 Milliliter(s) PO As needed every 4 hr 09/24/202018 Inactive Vicks Vaporub 4.7 %-1.2 %-2.6 % topical ointment RxNorm: 5664112 1 Application TOP TID 09/24/20 18 2018 Inactive levmetamfetamine 50 mg nasal inhaler RxNorm: 1 Unit(s) NASAL Q3-4H 09/24/20 18 2017 Inactive sertraline 50 mg tablet RxNorm: 163790 1 Tablet(s) PO daily 09/09/20 18 2018 Inactive Please note dose trazodone 50 mg tablet RxNorm: 762264 1 Tablet(s) PO QHS 09/06/20 18 2018 Inactive sertraline 50 mg tablet RxNorm: 148643 1 Tablet(s) PO daily 09/06/20 18 2017 Inactive amoxicillin 500 mg tablet RxNorm: 914302 1 Tablet(s) PO Q12H 08/31/20 18 2017 Inactive albuterol sulfate 2.5 mg/3 mL (0.083 %) solution for nebulization RxNorm: 319474 1 Vial INH QID 08/10/20 18 2018 Inactive 60/box. Please do not fill early. Please do not auto refill. Prozac 10 mg capsule RxNorm: 727752 1 Capsule(s) PO daily 08/09/20 18 2017 Inactive buspirone 7.5 mg tablet RxNorm: 712575 1 Tablet(s) PO BID 08/09/20 18 2018 Inactive gabapentin 300 mg capsule RxNorm: 819782 1 Capsule(s) PO TID as needed 08/01/20 18 2018 Inactive hydrochlorothiazide 12.5 mg tablet RxNorm: 621356 1 Tablet(s) PO QAM 08/01/20 18 2018 Inactive ranitidine 150 mg tablet RxNorm: 225747 1 Tablet(s) PO BID 08/01/20 18 2018 Inactive Macrobid 100 mg capsule RxNorm: 562351 1 Capsule(s) PO Q12H 06/21/20 18 2017 Inactive Singulair 10 mg tablet RxNorm: 097632 1 Tablet(s) PO daily 06/14/20 18 2018 Inactive Ventolin HFA 90 mcg/actuation aerosol inhaler RxNorm: 8518693 2 Puff(s) INH QID 06/14/20 18 2018 Inactive Singulair 10 mg tablet RxNorm: 954158 1 Tablet(s) PO daily 06/14/20 18 2017 Inactive buspirone 7.5 mg tablet RxNorm: 247458 1 Tablet(s) PO BID 06/14/20 18 2017 Inactive Prozac 10 mg capsule RxNorm: 584875 1 Capsule(s) PO daily 06/14/20 18 2017 Inactive Neilmed Pediatric Sinus Rinse Refill packet RxNorm: 1 Unit Dose NASAL PRN 05/31/20 18 2021 Inactive diclofenac sodium 75 mg tablet,delayed release RxNorm: 004910 1 Tablet(s) PO BID 05/31/20 18 2017 Inactive lisinopril 2.5 mg tablet RxNorm: 772055 1 Tablet(s) PO daily 05/31/20 18 2017 Inactive metoprolol succinate ER 50 mg tablet,extended release 24 hr RxNorm: 881503 1 Tablet(s) PO daily 05/31/20 18 2017 Inactive levothyroxine 50 mcg tablet RxNorm: 837582 1 Tablet(s) PO daily 05/31/20 18 2017 Inactive TRUEplus Lancets 30 gauge RxNorm: 1 Lancets Miscellaneous QAM 05/31/20 18 2017 Inactive 100/box Ventolin HFA 90 mcg/actuation aerosol inhaler RxNorm: 812822 2 Puff(s) INH QID 05/31/20 18 2017 Inactive Aleve 220 mg capsule RxNorm: 0998958 1 Capsule(s) PO BID 05/31/20 18 2018 Inactive ranitidine 150 mg tablet RxNorm: 604022 1 Tablet(s) PO BID 05/31/20 18 2017 Inactive gabapentin 300 mg capsule RxNorm: 221115 1 Capsule(s) PO TID as needed 05/31/20 18 2017 Inactive atorvastatin 20 mg tablet RxNorm: 972906 1 Tablet(s) PO QHS 05/31/20 18 2017 Inactive True Metrix Glucose Test Strip RxNorm: 1 Test Strips Miscellaneous QAM 05/31/20 18 2017 Inactive 50/container Calcium 600-D3 Plus 600 mg calcium-800 unit-50 mg tablet RxNorm: 1 Tablet(s) PO daily take an additonal tablet for itching. 05/31/20 18 2017 Inactive hydrochlorothiazide 12.5 mg tablet RxNorm: 718369 1 Tablet(s) PO QAM 05/31/20 18 2017 Inactive Flintstones Complete (iron) 18 mg iron chewable tablet RxNorm: 1 Tablet(s) PO daily 05/31/20 18 2017 Inactive d-mannose oral powder RxNorm: PO 18 2021 Inactive True Metrix Glucose Meter RxNorm: miscellaneous 08/17/202018 Inactive sertraline 50 mg tablet RxNorm: 026163 1 Tablet(s) PO daily 11/28/19 20 2019 Inactive loperamide 2 mg tablet RxNorm: 655500 oral 09/29/20 19 2018 Inactive Symbicort 160 mcg-4.5 mcg/actuation HFA aerosol inhaler RxNorm: 7212640 2 Puff(s) INH BID 08/17/202018 Inactive Medication Administered No Medication Administered data Results Observation Observation Code Item Item Code Result Date S ervice Location No Orders No Orders No Orders 0 04/14/2020 [facility] [address] [place] [address] Procedures Procedure Codes Date Tobacco Assessment/Screening CPT-4: TCA Fall Risk Assessment [facility] CT: 50629861 4 CPT-4: DFRA01/01/2020Functional AssessmentCPT-4: DFA01/01/2020[place] Fany AssessmentCPT-4: DSWA11/28/2019Patient Health QuestionnaireCPT-4: DPHQ11/28/2019 [place] Fany AssessmentCPT-4: DSWA10/17/2019HypertensionCPT-4: HTN10/17/2019 [facility] 4836[facility] CPT-4: DFRA09/19/2019Functional AssessmentCPT-4: DFA111/20/2018Urinalysis, dip stickCPT-4: 026511106/21/2019Tobacco Assessment/ScreeningCPT-4: TCA05/24/2019 Patient Health QuestionnaireCPT-4: DPHQ05/24/2019AHA/REBECCA Classification AssessmentCPT-4: DAHA04/25/2019Controlled Substance ReportCPT-4: CTRSU04/25/2019 Urinalysis, dip stickCPT-4: 523201303/28/2019Urinalysis, dip stickCPT-4: 67591 03/28/20199741J0B-PmajftbsvlzlokxWOB-3: 87965SnboqabS0P-YvoogtpgutijtcbPBH-1: 54954 UnknownGynecology [facility]erralSN[facility]: 619199894 CPT-4: K52Qbohgts Reason For Visit No Reason For Visit data Plan of Care Planned Activity Notes Codes Status Date Appointment: Ruth Culver WPtel: [id number] [place] [address] [id number]: Anna Culver WPtel: [address] [place] [address] [id number]: Anna Culver WPtel: [address] [place] [address] [id number]: Anna Culver WPtel: [address] [place] [address] [id number]: Anna Culver WPtel: [address] [place] [address] [id number]: Anna Culevr WPtel: [address] [place] [address] [id number]: Anna Culver WPtel: [address] [place] [address] [id number]: Sudha Hernadez WPtel: [address] [facility] [id number]: Sudha Hernadez WPtel: [address] [facility] [id number]: Charlene Oropeza WPtel: [address] [facility] b [id number] [id number]: Danny, PgivleM65079/26/2019Appointment: Charlene Oropeza WPtel: [address] [facility] b [id number]: JimmysenthilHema eliasothy WPtel: [address] [facility] b [id number]: Hasenthilziggyt Rasta WPtel: [address] [facility] [id number]: Daltoncurt Rasta WPtel: [address] [facility] [id number]: Jimmysenthilcurt Rasat WPtel: [address] [facility] [id number]: Pending Gynecology Referral InformationReferral ProcessedReferral: Pending Pulmonology Referral InformationReferralProcessed Referral: Pending Psychiatry Referral InformationReferralInitiatedReferral: Pending Respiratory Services Referral InformationReferralInitiatedReferral: Pending Ophthalmology Referral InformationReferralInitiatedReferral: [facility] WPtel: [facility] [address] [id number] USWriter placed a call out to the patient to notify her that it has been recommended that she be seenby a urologist. Patient agreed to be seen, does not have a provider of choice and no transportationissues. Vacuum Kettle Cook faxed referral and clinical notes to [facility] in [place], [place] near the patient's home. Patient to [...] seen and prefers a provider in the [place] or [place] area. Vacuum Kettle Cook placed a call out to everyone listed in the area and the only location that was able to accept the patient's insurance was [address] [address] and spoke with Maylin. Maylin asked that the patient's referral, face sheet and visit notes be faxed to . Vacuum Kettle Cook faxed over requested documents. Patient appointment confirmation letter generated and mailed to her home address. Patient to call to schedule an appointment.ProcessedReferral: [facility] WPtel: [address] [place], [place] [id number] USPatient notified that it has been advised that she be seen by Neurology. Patient agreed to be seen and prefers to be seen by a provider in the [place], [place] area. Patient denies any concerns with transportation, and prefers to schedule her own appointment. Vacuum Kettle Cook placed a call out to [facility] and spoke with Neeraj Mcfarland: who confirmed that their office is able to acceptnew patients and the patient's insurance. After confirming the providers fax number, film writer faxed over the patient's referral, and [...]
--- OUTSIDE RECORDS SUMMARY | 2023-12-07 02:11 | XMS_ITS | CCD ---
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 Rental Counter Clerk Name Role Phone Palomo KING, Anna Primary Care Provider Unav ailable Unavailable Chronic Care Management Unavaila ble Summary Purpose DataExchange Insurance Providers Payer name Policy type / Coverage type Covered constitution party ID Effective Begin Date Effective End Date [facility] [id number] Unknown Unknown Family history Mother Diagnosis Age [...] 05/31/2018 Education level Unknown Some High School 10th05/31/20184670BxukuenqtaNkvhkqjMjwavdrxle37/29/2018Tobacco historySNOMED CT: 624154637Adu never smoked or chewed eddmfjt8105/31/2018Alcohol historySNOMED CT: 914820704Qwypm drinks hlztfyt1805/31/2018Has the patient ever used illegal drugs? UnknownHas never used illegal drugs05/31/2018DNR Order/ Advanced Directive UnknownFull Code05/31/2018 Allergies, Adverse Reactions, Alerts Substance Reaction Codes Entered Date Inactivated Date Status *No known food allergies Rvvnzfa5109/06/2018No Inactive DateActiveMethylprednisolonehivesRxNorm: 6902 09/06/2018No Inactive DateActive Problems [...] ICD-9: 356.908/ActivePatient Not SeenICD-10: UXZ.01 ICD-9: XZ0.107/ActiveOther snf (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ICD-10: Z79.899 ICD-9: V58.6907/ActiveChest [...] Inactive 100/container loperamide 2 mg tablet RxNorm: 302777 1 Tablet(s) Oral as needed take one tablet after each loose stool, maximum of 8 tablets in 24 hours 02/22/20 20 2019 Inactive cetirizine 10 mg tablet RxNorm: 2433190 1 Tablet(s) PO daily 01/17/20 20 2019 Inactive levothyroxine 50 mcg tablet RxNorm: 137907 1 Tablet(s) PO daily 01/17/20 20 2020 Inactive gabapentin 300 mg capsule RxNorm: 755105 1 Capsule(s) PO TID 01/17/20 20 2019 Inactive loperamide 2 mg tablet RxNorm: 023294 1 Tablet(s) Oral as needed take one tablet after each loose stool, maximum of 8 tablets in 24 hours 01/17/20 20 2019 Inactive quetiapine 100 mg tablet RxNorm: 118133 1 Tablet(s) Oral every night at bedtime 01/17/20 20 2019 Inactive lisinopril 2.5 mg tablet RxNorm: 329136 1 Tablet(s) PO daily 01/15/20 20 2020 Inactive Singulair 10 mg tablet RxNorm: 036013 1 Tablet(s) PO daily 01/15/20 20 2020 Inactive levothyroxine 50 mcg tablet RxNorm: 110254 1 Tablet(s) PO daily 01/15/20 20 2019 Inactive gabapentin 300 mg capsule RxNorm: 860723 1 Capsule(s) PO TID 01/15/20 20 2019 Inactive cetirizine 10 mg tablet RxNorm: 5803091 1 Tablet(s) PO daily 01/15/20 20 2019 Inactive gentamicin 0.3 % eye drops RxNorm: 555643 1 Drop(s) ophthalmic (eye) four times a day 12/29/19 20 2019 Inactive gentamicin 0.3 % eye drops RxNorm: 773339 1 Drop(s) ophthalmic (eye) four times a day 12/29/19 20 2019 Inactive gentamicin 0.3 % eye drops RxNorm: 531811 1 Drop(s) ophthalmic (eye) four times a day 12/29/19 20 2019 Inactive hydrochlorothiazide 25 mg tablet RxNorm: 987497 1 Tablet(s) Oral every day 12/21/19 20 2019 Inactive Sudafed 12 Hour 120 mg tablet,extended release RxNorm: 7877620 TAKE (1) TABLET BY MOUTH EVERY 12 HOURS NEEDED 12/21/19 20 2019 Inactive loperamide 2 mg tablet RxNorm: 093879 1 Tablet(s) Oral as needed take one tablet after each loose stool, maximum of 8 tablets in 24 hours 12/11/19 20 2019 Inactive loperamide 2 mg tablet RxNorm: 699898 1 Tablet(s) Oral as needed take one tablet after each loose stool, maximum of 8 tablets in 24 hours 12/11/19 20 2019 Inactive atorvastatin 40 mg tablet RxNorm: 807515 1 Tablet(s) Oral every day 11/29/19 20 2020 Inactive sertraline 100 mg tablet RxNorm: 292972 1 Tablet(s) Oral 11/28/19 20 2019 Inactive quetiapine 100 mg tablet RxNorm: 064890 1 Tablet(s) Oral every night at bedtime 11/28/19 20 2019 Inactive omeprazole 20 mg capsule,delayed release RxNorm: 093624 1 Capsule(s) Oral every day 11/20/19 20 2019 Inactive amoxicillin 250 mg capsule RxNorm: 453031 1 Capsule(s) Oral three times a day 11/07/19 20 2019 Inactive multivitamin with iron-mineral tablet RxNorm: 1 Tablet(s) Oral every day 10/29/19 20 2021 Inactive cetirizine 10 mg tablet RxNorm: 0061631 1 Tablet(s) PO daily 10/20/19 20 2019 Inactive This refill negates all other refills of this medication. Please do not auto refill Singulair 10 mg tablet RxNorm: 945067 1 Tablet(s) PO daily 10/20/19 20 2019 Inactive This refill negates all other refills of this medication gabapentin 300 mg capsule RxNorm: 728876 1 Capsule(s) PO TID 10/20/19 20 2019 Inactive lisinopril 2.5 mg tablet RxNorm: 840198 1 Tablet(s) PO daily 10/20/19 20 2019 Inactive levothyroxine 50 mcg tablet RxNorm: 822929 1 Tablet(s) PO daily 10/20/19 20 2019 Inactive This refill negates all other refills of this medication fenugreek seed extract 500 mg capsule RxNorm: 1 Capsule(s) Oral three times a day 10/17/19 20 2021 Inactive hydrochlorothiazide 25 mg tablet RxNorm: 712702 1 Tablet(s) Oral every day 10/17/19 20 2019 Inactive Alcohol Prep Pads RxNorm: 650556 1 Patch TOP QAM 10/16/19 20 2020 Inactive loperamide 2 mg tablet RxNorm: 422134 1 Tablet(s) Oral as needed take one [...] 2019 Inactive hydrochlorothiazide 25 mg tablet RxNorm: 926006 1 Tablet(s) Oral every day 09/19/20 19 2019 Inactive Sudafed 12 Hour 120 mg tablet,extended release RxNorm: 3798181 1 Tablet(s) Oral every 12 hours as needed 09/11/20 19 2018 Inactive omeprazole 20 mg capsule,delayed release RxNorm: 528920 1 Capsule(s) Oral every day 09/07/20 19 2019 Inactive Sudafed 12 Hour 120 mg tablet,extended release RxNorm: 1755218 1 Tablet(s) Oral every 12 hours as needed 09/04/20 19 2018 Inactive pantoprazole 40 mg tablet,delayed release RxNorm: 847740 1 Tablet(s) Oral every day 08/24/20 19 2018 Inactive discontinue any other H2Blkr. and PPI albuterol sulfate 2.5 mg/3 mL (0.083 %) solution for nebulization RxNorm: 683333 1 Vial Inhalation every four hours as needed as needed for dyspnea 08/17/20 19 2019 Inactive 60/box. This refill negates all other refills of this medication. Please do not fill early. Please do not auto refill. Symbicort 160 mcg-4.5 mcg/actuation HFA aerosol inhaler RxNorm: 3124709 2 Puff(s) INH BID 08/17/20 No Stop Date Active Alcohol Prep Pads RxNorm: 514496 1 Patch TOP QAM 08/17/20 19 2019 Inactive Ventolin HFA 90 mcg/actuation aerosol inhaler RxNorm: 597689 2 Puff(s) INH QID 08/09/20 19 2019 Inactive Please do not fill early. Please do not auto refill. This refill negates all other refills of this medication True Metrix Glucose Test Strip RxNorm: 1 Test Strips Miscellaneous QAM 08/09/20 19 2019 Inactive 100/container atorvastatin 40 mg tablet RxNorm: 102417 1 Tablet(s) Oral every day 07/04/20 19 2019 Inactive levmetamfetamine 50 mg nasal inhaler RxNorm: 1 Unit(s) NASAL Q3-4H Do not use more than every 3 hours or 8 times/24hours 06/26/20 19 2021 Inactive Please do not auto refill. This refill negates all other refills of this medication diclofenac sodium 75 mg tablet,delayed release RxNorm: 474542 1 Tablet(s) PO BID 06/26/20 19 2019 Inactive This refill negates all other refills of this medication buspirone 7.5 mg tablet RxNorm: 371969 1 Tablet(s) PO BID 06/26/20 19 2020 Inactive This refill negates all other refills of this medication hydrochlorothiazide 12.5 mg tablet RxNorm: 596400 1 Tablet(s) PO QAM 06/26/20 19 2019 Inactive Ventolin HFA 90 mcg/actuation aerosol inhaler RxNorm: 980207 2 Puff(s) INH QID 06/26/20 19 2018 Inactive Please do not fill early. Please do not auto refill. This refill negates all other refills of this medication Singulair 10 mg tablet RxNorm: 223484 1 Tablet(s) PO daily 06/26/20 19 2019 Inactive This refill negates all other refills of this medication cetirizine 10 mg tablet RxNorm: 6045813 1 Tablet(s) PO daily 06/26/20 19 2019 Inactive This refill negates all other refills of this medication. Please do not auto refill levothyroxine 50 mcg tablet RxNorm: 512431 1 Tablet(s) PO daily 06/26/20 19 2019 Inactive This refill negates all other refills of this medication ranitidine 150 mg tablet RxNorm: 082048 1 Tablet(s) PO BID 06/26/20 19 2018 Inactive This refill negates all other refills of this medication Calcium 600-D3 Plus (mag-zinc) 600 mg calcium-800 unit-50 mg tablet RxNorm: 1 Tablet(s) PO daily take an additonal tablet for itching. 06/26/20 19 2018 Inactive This refill negates all other refills of this medication albuterol sulfate 2.5 mg/3 mL (0.083 %) solution for nebulization RxNorm: 053540 1 Vial INH QID 06/26/20 19 2018 Inactive 60/box. This refill negates all other refills of this medication. Please do not fill early. Please do not auto refill. lisinopril 2.5 mg tablet RxNorm: 190583 1 Tablet(s) PO daily 06/21/20 19 2019 Inactive gabapentin 300 mg capsule RxNorm: 063527 1 Capsule(s) PO TID 06/21/20 19 2019 Inactive atorvastatin 20 mg tablet RxNorm: 805161 1 Tablet(s) PO QHS 06/07/20 19 2018 Inactive This refill negates all other refills of this medication TRUEplus Lancets 30 gauge RxNorm: 1 Lancets Miscellaneous QAM 05/29/20 19 2018 Inactive 100/box gabapentin 300 mg capsule RxNorm: 587337 1 Capsule(s) PO TID 05/03/20 19 2018 Inactive Flintstones Complete (iron) 18 mg iron chewable tablet RxNorm: 1 Tablet(s) PO daily 04/04/202021 Inactive This refill negates all other refills of this medication gabapentin 300 mg capsule RxNorm: 884492 1 Capsule(s) PO TID as needed 02/01/20 19 2018 Inactive True Metrix Glucose Test Strip RxNorm: 1 Test Strips Miscellaneous QAM 02/01/20 19 2018 Inactive 100/container Alcohol Prep Pads RxNorm: 691865 1 Patch TOP QAM 02/01/20 19 2018 Inactive TRUEplus Lancets 30 gauge RxNorm: 1 Lancets Miscellaneous QAM 02/01/20 19 2018 Inactive 100/box lisinopril 2.5 mg tablet RxNorm: 401036 1 Tablet(s) PO daily 12/28/192018 Inactive ranitidine 150 mg tablet RxNorm: 671654 1 Tablet(s) PO BID 10/21/19 19 2018 Inactive This refill negates all other refills of this medication albuterol sulfate 2.5 mg/3 mL (0.083 %) solution for nebulization RxNorm: 998034 1 Vial INH QID 10/21/19 19 2018 [...] this medication gabapentin 300 mg capsule RxNorm: 641063 1 Capsule(s) PO TID as needed 10/21/19 19 2018 Inactive atorvastatin 20 mg tablet RxNorm: 755542 1 Tablet(s) PO QHS 10/21/19 19 2018 Inactive This refill negates all other refills of this medication trazodone 50 mg tablet RxNorm: 726490 1 Tablet(s) PO QHS 10/21/19 19 2018 Inactive This refill negates all other refills of this medication Ventolin HFA 90 mcg/actuation aerosol inhaler RxNorm: 808054 2 Puff(s) INH QID 10/21/192018 Inactive Please do not fill early. Please do not auto refill. This refill negates all other refills of this medication Calcium 600-D3 Plus 600 mg calcium-800 unit-50 mg tablet RxNorm: 1 Tablet(s) PO daily take an additonal tablet for itching. 10/21/19 19 2018 Inactive This refill negates all other refills of this medication Singulair 10 mg tablet RxNorm: 645542 1 Tablet(s) PO daily 10/21/19 19 2018 Inactive This refill negates all other refills of this medication buspirone 7.5 mg tablet RxNorm: 438150 1 Tablet(s) PO BID 10/21/192018 Inactive This refill negates all other refills of this medication diclofenac sodium 75 mg tablet,delayed release RxNorm: 719870 1 Tablet(s) PO BID 10/21/192018 Inactive This refill negates all other refills of this medication hydrochlorothiazide 12.5 mg tablet RxNorm: 932992 1 Tablet(s) PO QAM 10/21/19 19 2018 Inactive metoprolol succinate ER 50 mg tablet,extended release 24 hr RxNorm: 621191 1 Tablet(s) PO daily 10/21/192018 Inactive This refill negates all other refills of this medication levothyroxine 50 mcg tablet RxNorm: 112756 1 Tablet(s) PO daily 10/21/19 19 2018 Inactive This refill negates all other refills of this medication cetirizine 10 mg tablet RxNorm: 8633857 1 Tablet(s) PO daily 10/21/19 19 2018 Inactive This refill negates all other refills of this medication. Please do not auto refill Flintstones Complete (iron) 18 mg iron chewable tablet RxNorm: 1 Tablet(s) PO daily 10/21/19 19 2018 Inactive This refill negates all other refills of this medication buspirone 7.5 mg tablet RxNorm: 052016 1 Tablet(s) PO BID 10/12/19 19 2018 Inactive cetirizine 10 mg tablet RxNorm: 2079151 1 Tablet(s) PO daily 09/28/20 18 2018 Inactive Guaiasorb DM 10 mg-100 mg/5 mL oral liquid RxNorm: 031236 10 Milliliter(s) PO As needed every 4 hr 09/24/20 18 2018 Inactive Vicks Vaporub 4.7 %-1.2 %-2.6 % topical ointment RxNorm: 3362107 1 Application TOP TID 09/24/20 18 2018 Inactive levmetamfetamine 50 mg nasal inhaler RxNorm: 1 Unit(s) NASAL Q3-4H 09/24/20 18 2017 Inactive sertraline 50 mg tablet RxNorm: 933262 1 Tablet(s) PO daily 09/09/20 18 2018 Inactive Please note dose trazodone 50 mg tablet RxNorm: 365661 1 Tablet(s) PO QHS 09/06/20 18 2018 Inactive sertraline 50 mg tablet RxNorm: 545861 1 Tablet(s) PO daily 09/06/20 18 2017 Inactive amoxicillin 500 mg tablet RxNorm: 743048 1 Tablet(s) PO Q12H 08/31/20 18 2017 Inactive albuterol sulfate 2.5 mg/3 mL (0.083 %) solution for nebulization RxNorm: 698614 1 Vial INH QID 08/10/20 18 2018 Inactive 60/box. Please do not fill early. Please do not auto refill. Prozac 10 mg capsule RxNorm: 531105 1 Capsule(s) PO daily 08/09/20 18 2017 Inactive buspirone 7.5 mg tablet RxNorm: 280425 1 Tablet(s) PO BID 08/09/20 18 2018 Inactive gabapentin 300 mg capsule RxNorm: 664940 1 Capsule(s) PO TID as needed 08/01/20 18 2018 Inactive hydrochlorothiazide 12.5 mg tablet RxNorm: 473451 1 Tablet(s) PO QAM 08/01/20 18 2018 Inactive ranitidine 150 mg tablet RxNorm: 275952 1 Tablet(s) PO BID 08/01/20 18 2018 Inactive Macrobid 100 mg capsule RxNorm: 309444 1 Capsule(s) PO Q12H 06/21/20 18 2017 Inactive Singulair 10 mg tablet RxNorm: 119336 1 Tablet(s) PO daily 06/14/20 18 2018 Inactive Ventolin HFA 90 mcg/actuation aerosol inhaler RxNorm: 8883754 2 Puff(s) INH QID 06/14/20 18 2018 Inactive Singulair 10 mg tablet RxNorm: 085164 1 Tablet(s) PO daily 06/14/20 18 2017 Inactive buspirone 7.5 mg tablet RxNorm: 716048 1 Tablet(s) PO BID 06/14/20 18 2017 Inactive Prozac 10 mg capsule RxNorm: 638869 1 Capsule(s) PO daily 06/14/20 18 2017 Inactive Neilmed Pediatric Sinus Rinse Refill packet RxNorm: 1 Unit Dose NASAL PRN 05/31/20 18 2021 Inactive diclofenac sodium 75 mg tablet,delayed release RxNorm: 311441 1 Tablet(s) PO BID 05/31/20 18 2017 Inactive lisinopril 2.5 mg tablet RxNorm: 728883 1 Tablet(s) PO daily 05/31/20 18 2017 Inactive metoprolol succinate ER 50 mg tablet,extended release 24 hr RxNorm: 700358 1 Tablet(s) PO daily 05/31/20 18 2017 Inactive levothyroxine 50 mcg tablet RxNorm: 557143 1 Tablet(s) PO daily 05/31/20 18 2017 Inactive TRUEplus Lancets 30 gauge RxNorm: 1 Lancets Miscellaneous QAM 05/31/20 18 2017 Inactive 100/box Ventolin HFA 90 mcg/actuation aerosol inhaler RxNorm: 058169 2 Puff(s) INH QID 05/31/20 18 2017 Inactive Aleve 220 mg capsule RxNorm: 4898646 1 Capsule(s) PO BID 05/31/20 18 2018 Inactive ranitidine 150 mg tablet RxNorm: 499490 1 Tablet(s) PO BID 05/31/20 18 2017 Inactive gabapentin 300 mg capsule RxNorm: 741548 1 Capsule(s) PO TID as needed 05/31/20 18 2017 Inactive atorvastatin 20 mg tablet RxNorm: 784270 1 Tablet(s) PO QHS 05/31/20 18 2017 Inactive True Metrix Glucose Test Strip RxNorm: 1 Test Strips [facility] 05/31/20 18 2017 Inactive 50/container Calcium 600-D3 Plus 600 mg calcium-800 unit-50 mg tablet RxNorm: 1 Tablet(s) PO daily take an additonal tablet for itching. 05/31/20 18 2017 Inactive hydrochlorothiazide 12.5 mg tablet RxNorm: 594041 1 Tablet(s) PO QAM 05/31/20 18 2017 Inactive Flintstones Complete (iron) 18 mg iron chewable tablet RxNorm: 1 Tablet(s) PO daily 05/31/20 18 2017 Inactive d-mannose oral powder RxNorm: PO 18 2021 Inactive True Metrix Glucose Meter RxNorm: miscellaneous 08/17/20 19 2018 Inactive sertraline 50 mg tablet RxNorm: 601510 1 Tablet(s) PO daily 11/28/19 20 2019 Inactive loperamide 2 mg tablet RxNorm: 493875 oral 09/29/20 19 2018 Inactive Symbicort 160 mcg-4.5 mcg/actuation HFA aerosol inhaler RxNorm: 9914835 2 Puff(s) INH BID 08/17/20 19 2018 Inactive Medication Administered No Medication Administered data Procedures Procedure Codes Date Tobacco Assessment/Screening CPT-4: TCA Fall Risk Assessment SNOMED CT: 35940406 4 CPT-4: DFRA01/01/2020Functional AssessmentCPT-4: DFA01/01/2020[place] Fany AssessmentCPT-4: DSWA11/28/2019Patient Health QuestionnaireCPT-4: DPHQ11/28/2019 [place] Fany AssessmentCPT-4: DSWA10/17/2019HypertensionCPT-4: HTN10/17/[address]: 856540319 CPT-4: DFRA09/19/2019Functional AssessmentCPT-4: DFA111/20/2018Urinalysis, dip stickCPT-4: 5756125Tobacco Assessment/ScreeningCPT-4: TCA05/24/2019 Patient Health QuestionnaireCPT-4: DPHQ05/24/2019AHA/REBECCA Classification AssessmentCPT-4: DAHA04/25/2019Controlled Substance ReportCPT-4: CTRSU04/25/2019 Urinalysis, dip stickCPT-4: 772206903/28/2019Urinalysis, dip stickCPT-4: 72268 03/28/20195680K4G-ZekpnpxvndkipwmQNB-0: 37818QdfxehfR9U-CvwfwkozzwkjbjcQKG-4: [address]: 123795891 CPT-4: F31Ygyxlfi Reason For Visit No Reason For Visit data Plan of Care Planned Activity Notes Codes Status Date Referral: Pending Gynecology Referral Informatio n Referral ProcessedReferral: Pending Pulmonology Referral InformationReferralProcessed Referral: Pending Psychiatry Referral InformationReferralInitiatedReferral: Pending Respiratory Services Referral InformationReferralInitiatedReferral: Pending Ophthalmology Referral InformationReferralInitiatedReferral: [facility] WPtel: [address] [place] [place]Writer placed a call out to the patient to notify her that it has been recommended that she be seenby a urologist. Patient agreed to be seen, does not have a provider of choice and no transportationissues. Wool Classer faxed referral and clinical notes to [facility] in [place], [place] near the patient's home. [...] seen and prefers a provider in the [place] or [place] area. Wool Classer placed a call out to everyone listed in the area and the only location that was able to accept the patient's insurance was [address] [address] and spoke with Maylin. Maylin asked that the patient's referral, face sheet and visit notes be faxed to . Wool Classer faxed over requested documents. Patient appointment confirmation letter generated and mailed to her home address. Patient to call to schedule an appointment.ProcessedReferral: [facility] WPtel: [address] [id number] USPatient notified that it has been advised that she be seen by Neurology. Patient agreed to be seen and prefers to be seen by a provider in the [place], [place] area. Patient denies any concerns with transportation, and prefers to schedule her own appointment. Wool Classer [facility] and spoke with Neeraj [...]
--- OUTSIDE RECORDS SUMMARY | 2023-12-07 02:12 | XMS_ITS | CCD ---
Author Name Leena Culver NP Address [address] [place] [address] [address] [place] [address] Phone Organization [email or web address] Phone Care Team Providers Care Needle Grader Name Role Phone Anna Culver NP Primary Care Provider Unav ailable Unavailable Chronic Care Management Unavaila ble Summary Purpose DataExchange Insurance Providers Payer name Policy type / Coverage type Covered green party ID Effective Begin Date Effective End Date SUKI MAYO [id number] Unknown Unknown Family history Mother Diagnosis Age [...] 05/31/2018 Education level Unknown Some High School 10th05/31/20188174GqnkciokprTwefgzvNufqhojpbz12/29/2018Tobacco historySNOMED CT: 057717777Rvy never smoked or chewed erlsrot0605/31/2018Alcohol historySNOMED CT: 151250373Fnvmt drinks nyedbpr7905/31/2018Has the patient ever used illegal drugs? UnknownHas never used illegal drugs05/31/2018DNR Order/ Advanced Directive UnknownFull Code05/31/2018 Allergies, Adverse Reactions, Alerts Substance Reaction Codes Entered Date Inactivated Date Status *No known food allergies Pqthjuh5609/06/2018No Inactive DateActiveMethylprednisolonehivesRxNorm: 6902 09/06/2018No Inactive DateActive Problems Condition Codes Effective Dates Condition St atus (Z12.11-V76.51) Encounter fo r screening for malignant neoplasm of colon ICD-10: Z12.11 ICD-9: V76.5107/Active(Z12.31-V76.12) Encounter for screening mammogram for malignant neoplasm of breastICD-10: Z12.31 ICD-9: V76.1207/ActiveChronic kidney disease, unspecifiedICD-10: N18.9 ICD-9: 585.909/ActiveType 2 diabetes mellitus with peripheral neuropathy ICD-10: E11.42 ICD-9: 250.6002ActiveHypertensive heart disease with heart failureICD- 10: I11.0 ICD-9: 402.9107/ActiveAdult BMI 50.0-59.9 kg/sq mICD-10: Z68.43 ICD-9: V85.4308ActiveEssential (primary) hypertensionICD-10: I10 ICD-9: 401.901ActiveAbrasion of toeICD-10: S90.416A ICD-9: 917.005ActiveEncounter for screening for malignant neoplasm of cervixICD-10: Z12.4 ICD-9: V76.207/ActiveObstructive sleep apnea (adult) (pediatric)ICD-10: G47.33 ICD-9: 327.2309ActiveEncounter for screening for tobacco useICD-10: Z01.89 ICD-9: V72.8503/ActivePink eyeICD-10: H10.029 ICD-9: 372.0303ActiveSyncope and collapseICD-10: R55 ICD-9: 780.203ActiveFecal incontinenceICD-10: R15.9 ICD-9: 787.6003ActiveMixed incontinenceICD-10: N39.46 ICD-9: 788.3308ActiveDiarrheaICD-10: R19.7 ICD-9: 787.9112ActiveAdjustment disorder with mixed anxiety and depressed moodICD-10: F43.23 ICD-9: 309.2812ActiveType 2 diabetes mellitus without complicationsICD- 10: E11.9 ICD-9: 250.0001/10/2018ActiveSinusitisICD-10: J32.9 ICD-9: 473.902/02/2020ActiveAsthmaICD-10: J45.909 ICD-9: 493.9011ActiveGERD (gastroesophageal reflux disease)ICD-10: K21.9 ICD-9: 530.8112ActiveAcute upper respiratory infection, unspecifiedICD- 10: J06.9 ICD-9: 465.912ActiveHypothyroidism, unspecifiedICD-10: E03.9 ICD-9: 244.912ActiveHyperlipidemia, unspecifiedICD-10: E78.5 ICD-9: 272.408ActiveApnea, not elsewhere classifiedICD-10: R06.81 ICD-9: 786.0305ActiveEncounter for immunizationICD-10: Z23 ICD-9: V03.907ActiveEncounter for screening, unspecifiedICD-10: Z13.9 ICD-9: V82.912ActivePolyneuropathy, unspecifiedICD-10: G62.9 ICD-9: 356.908ActivePatient Not SeenICD-10: UXZ.01 ICD-9: XZ0.107ActiveOther technician terminal and repeater (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ICD-10: Z79.899 ICD-9: V58.6907/ActiveChest pain, unspecifiedICD-10: R07.9 ICD-9: 786.5002ActiveEncounter for preprocedural cardiovascular examinationICD-10: Z01.810 ICD-9: V72.8106ActiveDyspnea, unspecifiedICD-10: R06.00 ICD-9: 786.0905ActivePost-traumatic stress disorder, unspecifiedICD-10: F43.10 ICD-9: 309.8112ActiveWheezingICD-10: R06.2 ICD-9: 786.0711/06/2018ActiveAbnormal electrocardiogram [ECG] [EKG]ICD-10: R94.31 ICD-9: 794.31005/30/2018ActiveEdema, unspecifiedICD-10: R60.9 ICD-9: 782.310ActiveHeadacheICD-10: R51 ICD-9: 784.001ActiveLong term (current) use of non-steroidal anti- inflammatories (NSAID)ICD-10: Z79.1 ICD-9: V58.6409Active Medications Medication Codes Instructions Start Date Stop Date Status Fill Instructions True Metrix Glucose Test Strip RxNorm: 1 Test Strips Miscellaneous two times a day as needed 04/17/20 No Stop Date Active metformin 500 mg tablet RxNorm: 772729 1 Tablet(s) Oral every day 04/17/20 20 2019 Inactive diclofenac sodium 75 mg tablet,delayed release RxNorm: 117170 1 Tablet(s) PO BID 04/14/202021 Inactive This refill negates all other refills of this medication Sudafed 12 Hour 120 mg tablet,extended release RxNorm: 3713641 TAKE 1 TABLET BY MOUTH EVERY 12 HOURS NEEDED 03/14/20 20 2019 Inactive True Metrix Glucose Test Strip RxNorm: 1 Test Strips Miscellaneous every morning 03/13/20 20 2019 Inactive 100/container loperamide 2 mg tablet RxNorm: 000321 1 Tablet(s) Oral as needed take one tablet after each loose stool, maximum of 8 tablets in 24 hours 02/22/20 20 2019 Inactive True Metrix Glucose Test Strip RxNorm: 1 Test Strips Miscellaneous QAM 02/22/20 20 2019 Inactive 100/container cetirizine 10 mg tablet RxNorm: 7814727 1 Tablet(s) PO daily 01/17/20 20 2019 Inactive levothyroxine 50 mcg tablet RxNorm: 754932 1 Tablet(s) PO daily 01/17/20 20 2020 Inactive gabapentin 300 mg capsule RxNorm: 369257 1 Capsule(s) PO TID 01/17/20 20 2019 Inactive loperamide 2 mg tablet RxNorm: 838457 1 Tablet(s) Oral as needed take one tablet after each loose stool, maximum of 8 tablets in 24 hours 01/17/20 20 2019 Inactive quetiapine 100 mg tablet RxNorm: 313507 1 Tablet(s) Oral every night at bedtime 01/17/20 20 2019 Inactive lisinopril 2.5 mg tablet RxNorm: 599221 1 Tablet(s) PO daily 01/15/20 20 2020 Inactive Singulair 10 mg tablet RxNorm: 901237 1 Tablet(s) PO daily 01/15/20 20 2020 Inactive levothyroxine 50 mcg tablet RxNorm: 868196 1 Tablet(s) PO daily 01/15/20 20 2019 Inactive gabapentin 300 mg capsule RxNorm: 023036 1 Capsule(s) PO TID 01/15/20 20 2019 Inactive cetirizine 10 mg tablet RxNorm: 3501641 1 Tablet(s) PO daily 01/15/20 20 2019 Inactive gentamicin 0.3 % eye drops RxNorm: 522522 1 Drop(s) ophthalmic (eye) four times a day 12/29/19 20 2019 Inactive gentamicin 0.3 % eye drops RxNorm: 667519 1 Drop(s) ophthalmic (eye) four times a day 12/29/19 20 2019 Inactive gentamicin 0.3 % eye drops RxNorm: 635750 1 Drop(s) ophthalmic (eye) four times a day 12/29/19 20 2019 Inactive hydrochlorothiazide 25 mg tablet RxNorm: 659082 1 Tablet(s) Oral every day 12/21/19 20 2019 Inactive Sudafed 12 Hour 120 mg tablet,extended release RxNorm: 0301445 TAKE (1) TABLET BY MOUTH EVERY 12 HOURS NEEDED 12/21/19 20 2019 Inactive loperamide 2 mg tablet RxNorm: 763792 1 Tablet(s) Oral as needed take one tablet after each loose stool, maximum of 8 tablets in 24 hours 12/11/19 20 2019 Inactive loperamide 2 mg tablet RxNorm: 067523 1 Tablet(s) Oral as needed take one tablet after each loose stool, maximum of 8 tablets in 24 hours 12/11/192019 Inactive atorvastatin 40 mg tablet RxNorm: 828629 1 Tablet(s) Oral every day 11/29/19 20 2020 Inactive sertraline 100 mg tablet RxNorm: 297115 1 Tablet(s) Oral 11/28/19 20 2019 Inactive quetiapine 100 mg tablet RxNorm: 353384 1 Tablet(s) Oral every night at bedtime 11/28/19 20 2019 Inactive omeprazole 20 mg capsule,delayed release RxNorm: 570123 1 Capsule(s) Oral every day 11/20/19 20 2019 Inactive amoxicillin 250 mg capsule RxNorm: 690775 1 Capsule(s) Oral three times a day 11/07/19 20 2019 Inactive multivitamin with iron-mineral tablet RxNorm: 1 Tablet(s) Oral every day 10/29/192021 Inactive cetirizine 10 mg tablet RxNorm: 0329751 1 Tablet(s) PO daily 10/20/19 20 2019 Inactive This refill negates all other refills of this medication. Please do not auto refill Singulair 10 mg tablet RxNorm: 265270 1 Tablet(s) PO daily 10/20/19 20 2019 Inactive This refill negates all other refills of this medication gabapentin 300 mg capsule RxNorm: 134568 1 Capsule(s) PO TID 10/20/19 20 2019 Inactive lisinopril 2.5 mg tablet RxNorm: 238801 1 Tablet(s) PO daily 10/20/19 20 2019 Inactive levothyroxine 50 mcg tablet RxNorm: 277789 1 Tablet(s) PO daily 10/20/19 20 2019 Inactive This refill negates all other refills of this medication fenugreek seed extract 500 mg capsule RxNorm: 1 Capsule(s) Oral three times a day 10/17/19 20 2021 Inactive hydrochlorothiazide 25 mg tablet RxNorm: 242451 1 Tablet(s) Oral every day 10/17/19 20 2019 Inactive Alcohol Prep Pads RxNorm: 280547 1 Patch TOP QAM 10/16/19 20 2020 Inactive loperamide 2 mg tablet RxNorm: 518740 1 Tablet(s) Oral as needed take one [...] 2019 Inactive hydrochlorothiazide 25 mg tablet RxNorm: 230592 1 Tablet(s) Oral every day 09/19/20 19 2019 Inactive Sudafed 12 Hour 120 mg tablet,extended release RxNorm: 4681438 1 Tablet(s) Oral every 12 hours as needed 09/11/20 19 2018 Inactive omeprazole 20 mg capsule,delayed release RxNorm: 873341 1 Capsule(s) Oral every day 09/07/20 19 2019 Inactive Sudafed 12 Hour 120 mg tablet,extended release RxNorm: 4792770 1 Tablet(s) Oral every 12 hours as needed 09/04/20 19 2018 Inactive pantoprazole 40 mg tablet,delayed release RxNorm: 121401 1 Tablet(s) Oral every day 08/24/20 19 2018 Inactive discontinue any other H2Blkr. and PPI albuterol sulfate 2.5 mg/3 mL (0.083 %) solution for nebulization RxNorm: 328702 1 Vial Inhalation every four hours as needed as needed for dyspnea 08/17/20 19 2019 Inactive 60/box. This refill negates all other refills of this medication. Please do not fill early. Please do not auto refill. Symbicort 160 mcg-4.5 mcg/actuation HFA aerosol inhaler RxNorm: 8498832 2 Puff(s) INH BID 08/17/20 19 No Stop Date Active Alcohol Prep Pads RxNorm: 339780 1 Patch TOP QAM 08/17/20 19 2019 Inactive Ventolin HFA 90 mcg/actuation aerosol inhaler RxNorm: 776963 2 Puff(s) INH QID 08/09/20 19 2019 Inactive Please do not fill early. Please do not auto refill. This refill negates all other refills of this medication True Metrix Glucose Test Strip RxNorm: 1 Test Strips Miscellaneous QAM 08/09/20 19 2019 Inactive 100/container atorvastatin 40 mg tablet RxNorm: 009131 1 Tablet(s) Oral every day 07/04/20 19 2019 Inactive levmetamfetamine 50 mg nasal inhaler RxNorm: 1 Unit(s) NASAL Q3-4H Do not use more than every 3 hours or 8 times/24hours 06/26/20 19 2021 Inactive Please do not auto refill. This refill negates all other refills of this medication buspirone 7.5 mg tablet RxNorm: 217192 1 Tablet(s) PO BID 06/26/20 19 2020 Inactive This refill negates all other refills of this medication hydrochlorothiazide 12.5 mg tablet RxNorm: 101494 1 Tablet(s) PO QAM 06/26/20 19 2019 Inactive Ventolin HFA 90 mcg/actuation aerosol inhaler RxNorm: 639486 2 Puff(s) INH QID 06/26/20 19 2018 Inactive Please do not fill early. Please do not auto refill. This refill negates all other refills of this medication Singulair 10 mg tablet RxNorm: 397471 1 Tablet(s) PO daily 06/26/20 19 2019 Inactive This refill negates all other refills of this medication cetirizine 10 mg tablet RxNorm: 8254345 1 Tablet(s) PO daily 06/26/20 19 2019 Inactive This refill negates all other refills of this medication. Please do not auto refill levothyroxine 50 mcg tablet RxNorm: 118578 1 Tablet(s) PO daily 06/26/20 19 2019 Inactive This refill negates all other refills of this medication diclofenac sodium 75 mg tablet,delayed release RxNorm: 130912 1 Tablet(s) PO BID 06/26/20 19 2019 Inactive This refill negates all other refills of this medication ranitidine 150 mg tablet RxNorm: 466666 1 Tablet(s) PO BID 06/26/20 19 2018 Inactive This refill negates all other refills of this medication Calcium 600-D3 Plus (mag-zinc) 600 mg calcium-800 unit-50 mg tablet RxNorm: 1 Tablet(s) PO daily take an additonal tablet for itching. 06/26/20 19 2018 Inactive This refill negates all other refills of this medication albuterol sulfate 2.5 mg/3 mL (0.083 %) solution for nebulization RxNorm: 088915 1 Vial INH QID 06/26/20 19 2018 Inactive 60/box. This refill negates all other refills of this medication. Please do not fill early. Please do not auto refill. lisinopril 2.5 mg tablet RxNorm: 089962 1 Tablet(s) PO daily 06/21/20 19 2019 Inactive gabapentin 300 mg capsule RxNorm: 711943 1 Capsule(s) PO TID 06/21/20 19 2019 Inactive atorvastatin 20 mg tablet RxNorm: 840592 1 Tablet(s) PO QHS 06/07/20 19 2018 Inactive This refill negates all other refills of this medication TRUEplus Lancets 30 gauge RxNorm: 1 Lancets Miscellaneous QAM 05/29/20 19 2018 Inactive 100/box gabapentin 300 mg capsule RxNorm: 759192 1 Capsule(s) PO TID 05/03/20 19 2018 Inactive Flintstones Complete (iron) 18 mg iron chewable tablet RxNorm: 1 Tablet(s) PO daily 04/04/20 19 2021 Inactive This refill negates all other refills of this medication gabapentin 300 mg capsule RxNorm: 633065 1 Capsule(s) PO TID as needed 02/01/20 19 2018 Inactive True Metrix Glucose Test Strip RxNorm: 1 Test Strips Miscellaneous QAM 02/01/20 19 2018 Inactive 100/container Alcohol Prep Pads RxNorm: 593998 1 Patch TOP QA 02/01/20 19 2018 Inactive TRUEplus Lancets 30 gauge RxNorm: 1 Lancets Miscellaneous QAM 02/01/20 19 2018 Inactive 100/box lisinopril 2.5 mg tablet RxNorm: 417476 1 Tablet(s) PO daily 12/28/19 19 2018 Inactive ranitidine 150 mg tablet RxNorm: 839676 1 Tablet(s) PO BID 10/21/192018 Inactive This refill negates all other refills of this medication albuterol sulfate 2.5 mg/3 mL (0.083 %) solution for nebulization RxNorm: 750286 1 Vial INH QID 10/21/192018 Inactive 60/box. [...] this medication gabapentin 300 mg capsule RxNorm: 986426 1 Capsule(s) PO TID as needed 10/21/19 19 2018 Inactive atorvastatin 20 mg tablet RxNorm: 710811 1 Tablet(s) PO QHS 10/21/19 19 2018 Inactive This refill negates all other refills of this medication trazodone 50 mg tablet RxNorm: 918790 1 Tablet(s) PO QHS 10/21/19 19 2018 Inactive This refill negates all other refills of this medication Ventolin HFA 90 mcg/actuation aerosol inhaler RxNorm: 953208 2 Puff(s) INH QID 10/21/19 19 2018 [...] this medication Singulair 10 mg tablet RxNorm: 972525 1 Tablet(s) PO daily 10/21/192018 Inactive This refill negates all other refills of this medication buspirone 7.5 mg tablet RxNorm: 734460 1 Tablet(s) PO BID 10/21/192018 Inactive This refill negates all other refills of this medication diclofenac sodium 75 mg tablet,delayed release RxNorm: 270260 1 Tablet(s) PO BID 10/21/192018 Inactive This refill negates all other refills of this medication hydrochlorothiazide 12.5 mg tablet RxNorm: 848759 1 Tablet(s) PO QAM 10/21/192018 Inactive metoprolol succinate ER 50 mg tablet,extended release 24 hr RxNorm: 779075 1 Tablet(s) PO daily 10/21/192018 Inactive This refill negates all other refills of this medication levothyroxine 50 mcg tablet RxNorm: 135348 1 Tablet(s) PO daily 10/21/192018 Inactive This refill negates all other refills of this medication cetirizine 10 mg tablet RxNorm: 6183169 1 Tablet(s) PO daily 10/21/192018 Inactive This refill negates all other refills of this medication. Please do not auto refill Flintstones Complete (iron) 18 mg iron chewable tablet RxNorm: 1 Tablet(s) PO daily 10/21/192018 Inactive This refill negates all other refills of this medication buspirone 7.5 mg tablet RxNorm: 873507 1 Tablet(s) PO BID 01/10/2018 Inactive cetirizine 10 mg tablet RxNorm: 8418027 1 Tablet(s) PO daily 09/28/20 18 2018 Inactive Guaiasorb DM 10 mg-100 mg/5 mL oral liquid RxNorm: 133698 10 Milliliter(s) PO As needed every 4 hr 09/24/20 18 2018 Inactive Vicks Vaporub 4.7 %-1.2 %-2.6 % topical ointment RxNorm: 5167539 1 Application TOP TID 09/24/20 18 2018 Inactive levmetamfetamine 50 mg nasal inhaler RxNorm: 1 Unit(s) NASAL Q3-4H 09/24/20 18 2017 Inactive sertraline 50 mg tablet RxNorm: 885238 1 Tablet(s) PO daily 09/09/20 18 2018 Inactive Please note dose trazodone 50 mg tablet RxNorm: 858193 1 Tablet(s) PO QHS 09/06/20 18 2018 Inactive sertraline 50 mg tablet RxNorm: 408876 1 Tablet(s) PO daily 09/06/20 18 2017 Inactive amoxicillin 500 mg tablet RxNorm: 837838 1 Tablet(s) PO Q12H 08/31/20 18 2017 Inactive albuterol sulfate 2.5 mg/3 mL (0.083 %) solution for nebulization RxNorm: 204904 1 Vial INH QID 08/10/202018 Inactive 60/box. Please do not fill early. Please do not auto refill. Prozac 10 mg capsule RxNorm: 478279 1 Capsule(s) PO daily 08/09/20 18 2017 Inactive buspirone 7.5 mg tablet RxNorm: 079072 1 Tablet(s) PO BID 08/09/20 18 2018 Inactive gabapentin 300 mg capsule RxNorm: 427290 1 Capsule(s) PO TID as needed 08/01/20 18 2018 Inactive hydrochlorothiazide 12.5 mg tablet RxNorm: 389728 1 Tablet(s) PO QAM 08/01/20 18 2018 Inactive ranitidine 150 mg tablet RxNorm: 842115 1 Tablet(s) PO BID 08/01/20 18 2018 Inactive Macrobid 100 mg capsule RxNorm: 261387 1 Capsule(s) PO Q12H 06/21/20 18 2017 Inactive Singulair 10 mg tablet RxNorm: 908101 1 Tablet(s) PO daily 06/14/20 18 2018 Inactive Ventolin HFA 90 mcg/actuation aerosol inhaler RxNorm: 1341634 2 Puff(s) INH QID 06/14/20 18 2018 Inactive Singulair 10 mg tablet RxNorm: 024531 1 Tablet(s) PO daily 06/14/20 18 2017 Inactive buspirone 7.5 mg tablet RxNorm: 522346 1 Tablet(s) PO BID 06/14/20 18 2017 Inactive Prozac 10 mg capsule RxNorm: 946401 1 Capsule(s) PO daily 06/14/20 18 2017 Inactive Neilmed Pediatric Sinus Rinse Refill packet RxNorm: 1 Unit Dose NASAL PRN 05/31/20 18 2021 Inactive diclofenac sodium 75 mg tablet,delayed release RxNorm: 442684 1 Tablet(s) PO BID 05/31/20 18 2017 Inactive lisinopril 2.5 mg tablet RxNorm: 464405 1 Tablet(s) PO daily 05/31/20 18 2017 Inactive metoprolol succinate ER 50 mg tablet,extended release 24 hr RxNorm: 537178 1 Tablet(s) PO daily 05/31/20 18 2017 Inactive levothyroxine 50 mcg tablet RxNorm: 907895 1 Tablet(s) PO daily 05/31/20 18 2017 Inactive TRUEplus Lancets 30 gauge RxNorm: 1 Lancets Miscellaneous QAM 05/31/20 18 2017 Inactive 100/box Ventolin HFA 90 mcg/actuation aerosol inhaler RxNorm: 583307 2 Puff(s) INH QID 05/31/20 18 2017 Inactive Aleve 220 mg capsule RxNorm: 8218688 1 Capsule(s) PO BID 05/31/20 18 2018 Inactive ranitidine 150 mg tablet RxNorm: 148525 1 Tablet(s) PO BID 05/31/20 18 2017 Inactive gabapentin 300 mg capsule RxNorm: 427418 1 Capsule(s) PO TID as needed 05/31/20 18 2017 Inactive atorvastatin 20 mg tablet RxNorm: 221648 1 Tablet(s) PO QHS 05/31/20 18 2017 Inactive True Metrix Glucose Test Strip RxNorm: 1 [facility] 05/31/20 18 2017 Inactive 50/container Calcium 600-D3 Plus 600 mg calcium-800 unit-50 mg tablet RxNorm: 1 Tablet(s) PO daily take an additonal tablet for itching. 05/31/20 18 2017 Inactive hydrochlorothiazide 12.5 mg tablet RxNorm: 439994 1 Tablet(s) PO QAM 05/31/20 18 2017 Inactive Flintstones Complete (iron) 18 mg iron chewable tablet RxNorm: 1 Tablet(s) PO daily 05/31/20 18 2017 Inactive d-mannose oral powder RxNorm: PO 18 2021 Inactive True Metrix Glucose Meter RxNorm: miscellaneous 08/17/20 19 2018 Inactive sertraline 50 mg tablet RxNorm: 759029 1 Tablet(s) PO daily 11/28/19 20 2019 Inactive loperamide 2 mg tablet RxNorm: 087432 oral 09/29/20 19 2018 Inactive Symbicort 160 mcg-4.5 mcg/actuation HFA aerosol inhaler RxNorm: 5617784 2 Puff(s) INH BID 08/17/20 19 2018 Inactive Medication Administered No Medication Administered data Procedures Procedure Codes Date Breast Cancer Screening Screening for Breast Cancer/Screened:/No/Mammogram not clinically indicated due to < 50 years ofageCPT-4: RHNZvlmhhi80/16/2020Colorectal Screening Screening for Colorectal Cancer/Screened:/No/CRC screening not clinically indicated due to < 50 years of ageCPT-4: EMSZagehls93/16/2020Tobacco Assessment/ScreeningCPT-4: TCA01/01/2020Fall Risk AssessmentSNOMED CT: 102173916 CPT-4: DFRA01/01/2020Functional AssessmentCPT-4: DFA01/01/2020[place] Fany AssessmentCPT-4: DSWA11/28/2019Patient Health QuestionnaireCPT-4: DPHQ11/28/2019 [place] Fany AssessmentCPT-4: DSWA10/17/2019HypertensionCPT-4: HTN10/17/[address]: 651048472 CPT-4: DFRA09/19/2019Functional AssessmentCPT-4: DFA111/20/2018Urinalysis, dip stickCPT-4: 520640406/21/2019Tobacco Assessment/ScreeningCPT-4: TCA05/24/2019 Patient Health QuestionnaireCPT-4: DPHQ05/24/2019AHA/REBECCA Classification AssessmentCPT-4: DAHA04/25/2019Controlled Substance ReportCPT-4: CTRSU04/25/2019 Urinalysis, dip stickCPT-4: 497905903/28/2019Urinalysis, dip stickCPT-4: 59403 03/28/20196464H3I-IszktzyajvqhmszEDT-4: 56007XkxgzxfL4W-FkkjmeuajpiiwwpHRJ-5: 21306 EeijtbvI4D-HlxjdynecqsbiwuKQR-0: 61447BbzpznzCrrzamebcs ReferralSNOMED CT: 819645354 CPT-4: V05Cyjcvts Vital Signs Date Vital 04/17/2020 Blood Pressure 1: 10 7/79 Code: 8480-6 Heart Rate 1: 90 bpm Weight: 264 lbs Code: 14553-2 Reason For Visit Reason For Visit Effective Dates Notes hypertension 04/17/2020 diabetes mellitus 04/17/2020 Interim health update 04/17/2020 Encounters Encounter Performer Location Location Address Codes Magdi e ([id number]) (EST PT) [facility] [place] [facility] VISIT Diagnosis: Type 2 diabetes mellitus with peripheral neuropathy[ICD10: E11.42] Diagnosis: Chronic kidney disease, unspecified[ICD10: N18.9] Diagnosis: (Z12.31-V76.12) Encounter for screening mammogram for malignant neoplasm of breast[ICD10: Z12.31] Diagnosis: (Z12.11-V76.51) Encounter for screening for malignant neoplasm of colon[ICD10: Z12.11]Anna Bourgeois [address] [facility] [address] [place], [place] [address]ORS-6: [phone] Plan of Care Planned Activity Notes Codes Status Date Visit Plan: E11.42-250.60 Type 2 diabetes mellitus with peripheral neuropathy testing daily, at varied times range 95-159, patient reports feeling symptomatic for BS > 100, will add second testing PRN for symptoms 04/14/2020 5.6 10/17/2019 Hemoglobin A1C 6.0 07/04/2019 Hgb A1C 5.6 10/17/2019 Inocente Soares 04/11-instructed on good daily foot care routine follow up with Dr. Gonzales, podiatry-diabetic shoe received ophthalmology confirms visit, but doesn't remember when 01/01/2020 FRA complete denies fall 01/01/2020 Functional Assessment complete I10-401.9 Essential (primary) hypertension I11.0-402.91 Hypertensive heart disease with heart failure BP noted good for age cont hctz and lisinipril 10/17/2019 HTN assessment, encourage lifestyle modifications, exercise, weight loss, and limiting fried and greasy foods, 04/14/2020 GFR 110, Mg 2.3, Phosphorus 2.9 all numbers WNL 10/17/2019 GFR 90 N18.9-585.9 Chronic kidney disease, unspecified avoid nephro toxic drugs, 07/04/2019 BUN 17 creatinine 0.7 GFR 93 Patient denies ability to drink water stating that it dehydrates her- doesn't know diagnosis,but indicates she was told this by previous urologist urology next appointment 06/2020 G47.33-327.23Obstructive sleep apnea (adult) (pediatric) J45.909-493.90 Asthma continue inhalers and nebulizer wears cpap every night, believes that is helpful Dr. Garcia, pulmonology for chronic sleep apnea and asthma-audio visit last week Cpap pressuresetting increased to 12-request records F43.23-309.28 Adjustment disorder with mixed anxiety and depressed mood routine follow up [place] [facility] [place] E03.9-244.9 Hypothyroidism, unspecified cont levothyroxine N39.46-788.33 Mixed [...] mammogram for malignant neoplasm of breast Z12.11-V76.51 (Z12.11- [...] visit verbalized understanding of all above topics. 04/17/2020Patient Education: Patient Medication CanauvmCjnoheyng37/16/2020 Patient Education: SzpkcykemzxjWmsmyeohy02/16/2020Patient Education: Diabetes Pfoyvulwo50/16/2020Appointment: Anna Culver WPtel: [phone] [place] [address] [id number]: Anna Culver WPtel: [phone] [place] [address] [id number]: Anna Culver WPtel: [phone] [address] [id number]: Anna Culver WPtel: [address] [place] [address] [id number]: Anna Culver WPtel: [phone] [place] [address] [id number]: Anna Culver WPtel: [address] [place] [address] [id number]: Anna Culver WPtel: [address] [place] [address] [id number]: Sudha Hernadez WPtel: [address] [facility] [id number]: Sudha Hernadez WPtel: [address] [facility] [id number]: Charlene Oropeza WPtel: [address] [facility] [id number]: Bianca DelgadoExwlzeV41144/26/2019Appointment: Charlene Oropeza WPtel: [address] [facility] [address] [id number]: Rasta Palafox WPtel: [address] [facility] [address] [id number]: Hema Palafoxothy WPtel: [address] [facility] [address] [id number]: Rasta Palafox WPtel: [address] [facility] [address] [id number]: Rasta Palafox WPtel: [address] [facility] [address] [id number]: Pending Gynecology Referral InformationReferral ProcessedReferral: Pending Pulmonology Referral InformationReferralProcessed Referral: Pending Psychiatry Referral InformationReferralInitiatedReferral: Pending Respiratory Services Referral InformationReferralInitiatedReferral: Pending Ophthalmology Referral InformationReferralInitiatedReferral: [facility] WPtel: [address] [place] [address] [address] [facility] USWriter placed a call out to the patient to notify her that it has been recommended that she be seenby a urologist. Patient agreed to be seen, does not have a provider of choice and no transportationissues. [employer] Assistant Manager faxed referral and clinical notes to [facility] in [place], [place] near the patient's home. Patient to [...] seen and prefers a provider in the [place] or [facility]. [employer] Assistant Manager placed a call out to everyone listed in the area and the only location that was able to accept the patient's insurance was [place] [address] [place] [address] and spoke with Maylin. Maylin asked that the patient's referral, face sheet and visit notes be faxed to . [employer] Assistant Manager faxed over requested documents. Patient appointment confirmation letter generated and mailed to her home address. Patient to call to schedule an appointment.ProcessedReferral: [facility] WPtel: [address] [place], [place] [id number] USPatient notified that it has been advised that she be seen by Neurology. Patient agreed to be seen and prefers to be seen by a provider in the [place], [place] area. Patient denies any concerns with transportation, and prefers to schedule her own appointment. [employer] Assistant Manager placed a call out to [facility] and spoke with [...] neuropathy testing daily, at varied times range 95-159, patient reports feeling symptomatic for BS > 100, will add second testing PRN for symptoms 04/14/2020 5.6; 10/17/2019 Hemoglobin A1C 6.0; 07/04/2019 Hgb A1C 5.6 10/17/2019 [place] Fany 04/11-instructed on good daily foot care routine follow up with Dr. Gonzales, podiatry-diabetic shoe received ophthalmology confirms visit, but doesn't remember when 01/01/2020 FRA complete denies fall 01/01/2020 Functional Assessment complete I10-401.9 Essential (primary) hypertension I11.0-402.91 Hypertensive heart disease with heart failure BP noted good for age cont hctz and lisinipril 10/17/2019 HTN assessment, encourage lifestyle modifications, exercise, weight loss, and limiting fried and greasy foods, 04/14/2020 GFR 110, Mg 2.3, Phosphorus 2.9 all numbers WNL; 10/17/2019 GFR 90 N18.9-585.9 Chronic kidney disease, unspecified avoid nephro toxic drugs, 07/04/2019 BUN 17; creatinine 0.7; GFR 93 Patient denies ability to drink water stating that it dehydrates her-doesn't know diagnosis, but indicates she was told this by previous urologist urology next appointment 06/2020 G47.33-327.23 Obstructive sleep apnea (adult) (pediatric); J45.909-493.90 Asthma continue inhalers and nebulizer wears cpap every night, believes that is helpful Dr. Garcia, pulmonology for chronic sleep apnea and asthma-audio visit last week Cpap pressure setting increased to 12-request records F43.23-309.28 Adjustment disorder with mixed anxiety and depressed mood routine follow up [place] [facility] [place] E03.9-244.9 Hypothyroidism, unspecified cont levothyroxine N39.46-788.33 Mixed [...] visit verbalized understanding of all above topics. 04/17/2020 Medical Equipment No Medical Equipment data Advance Directives No Advance Directive data
--- OUTSIDE RECORDS SUMMARY | 2023-12-07 02:12 | XMS_ITS | CCD ---
Author Name Leena Culver NP Address [address] [place] [address] [place] [id number] Phone Organization [facility] Phone Care Team Providers Care Help Desk Assistant Name Role Phone Anna Culver NP Primary Care Provider Unav ailable Unavailable Chronic Care Management Unavaila ble Summary Purpose DataExchange Insurance Providers Payer name Policy type / Coverage type Covered democrat ID Effective Begin Date Effective End Date SUKI MAYO [id number] Unknown Unknown Family history Mother Diagnosis Age [...] 05/31/2018 Education level Unknown Some High School 10th05/31/20189652VfwdgznensQjekiefNkyitlmolm19/29/2018Tobacco historySNOMED CT: 981888090Wgq never smoked or chewed hpohzoh6305/31/2018Alcohol historySNOMED CT: 509226172Skhcn drinks ysddjtm9405/31/2018Has the patient ever used illegal drugs? UnknownHas never used illegal drugs05/31/2018DNR Order/ Advanced Directive UnknownFull Code05/31/2018 Allergies, Adverse Reactions, Alerts Substance Reaction Codes Entered Date Inactivated Date Status *No known food allergies Hnywldj6809/06/2018No Inactive DateActiveMethylprednisolonehivesRxNorm: 6902 09/06/2018No Inactive DateActive Problems Condition Codes Effective Dates Condition St atus Hypertensive heart disease with heart fa ilure ICD-10: I11.0 ICD-9: 402.9107ActiveRight wrist painICD-10: M25.531 ICD-9: 719.4308ActiveType 2 diabetes mellitus with peripheral neuropathy ICD-10: E11.42 ICD-9: 250.6002Active(Z12.11-V76.51) Encounter for screening for malignant neoplasm of colonICD-10: Z12.11 ICD-9: V76.5107Active(Z12.31-V76.12) Encounter for screening mammogram for malignant neoplasm of breastICD-10: Z12.31 ICD-9: V76.1207ActiveChronic kidney disease, unspecifiedICD-10: N18.9 ICD-9: 585.909ActiveAdult BMI 50.0-59.9 kg/sq mICD-10: Z68.43 ICD-9: V85.4308ActiveEssential (primary) hypertensionICD-10: I10 ICD-9: 401.901ActiveAbrasion of toeICD-10: S90.416A ICD-9: 917.005ActiveEncounter for screening for malignant neoplasm of cervixICD-10: Z12.4 ICD-9: V76.207ActiveObstructive sleep apnea (adult) (pediatric)ICD-10: G47.33 ICD-9: 327.2309ActiveEncounter for screening for tobacco useICD-10: Z01.89 ICD-9: V72.8503ActivePink eyeICD-10: H10.029 ICD-9: 372.0303ActiveSyncope and collapseICD-10: R55 ICD-9: 780.203ActiveFecal incontinenceICD-10: R15.9 ICD-9: 787.6003ActiveMixed incontinenceICD-10: N39.46 ICD-9: 788.3308ActiveDiarrheaICD-10: R19.7 ICD-9: 787.9112ActiveAdjustment disorder with mixed anxiety and depressed moodICD-10: F43.23 ICD-9: 309.2812ActiveType 2 diabetes mellitus without complicationsICD- 10: E11.9 ICD-9: 250.0001/10/2018ActiveSinusitisICD-10: J32.9 ICD-9: 473.902ActiveAsthmaICD-10: J45.909 ICD-9: 493.9011ActiveGERD (gastroesophageal reflux disease)ICD-10: K21.9 ICD-9: 530.8112ActiveAcute upper respiratory infection, unspecifiedICD- 10: J06.9 ICD-9: 465.912ActiveHypothyroidism, unspecifiedICD-10: E03.9 ICD-9: 244.912ActiveHyperlipidemia, unspecifiedICD-10: E78.5 ICD-9: 272.408ActiveApnea, not elsewhere classifiedICD-10: R06.81 ICD-9: 786.0305ActiveEncounter for immunizationICD-10: Z23 ICD-9: V03.907ActiveEncounter for screening, unspecifiedICD-10: Z13.9 ICD-9: V82.912ActivePolyneuropathy, unspecifiedICD-10: G62.9 ICD-9: 356.908ActivePatient Not SeenICD-10: UXZ.01 ICD-9: XZ0.107Active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 (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ICD-10: Z79.899 ICD-9: V58.6907ActiveChest pain, [...] Instructions omeprazole 20 mg capsule,delayed release RxNorm: 599566 TAKE 1 CAPSULE BY MOUTH EVERY DAY 05/14/20 20 2020 Inactive metformin 500 mg tablet RxNorm: 181893 1 Tablet(s) Oral every day 05/12/20 20 2019 Inactive True Metrix Glucose Test Strip RxNorm: 1 Test Strips Miscellaneous two times a day as needed 04/17/20 No Stop Date Active metformin 500 mg tablet RxNorm: 602289 1 Tablet(s) Oral every day 04/17/20 20 2019 Inactive diclofenac sodium 75 mg tablet,delayed release RxNorm: 227578 1 Tablet(s) PO BID 04/14/20 20 2021 Inactive This refill negates all other refills of this medication Sudafed 12 Hour 120 mg tablet,extended release RxNorm: 8884626 TAKE 1 TABLET BY MOUTH EVERY 12 HOURS NEEDED 03/14/20 20 2019 Inactive True Metrix Glucose Test Strip RxNorm: 1 Test Strips Miscellaneous every morning 03/13/20 20 2019 Inactive 100/container loperamide 2 mg tablet RxNorm: 855351 1 Tablet(s) Oral as needed take one tablet after each loose stool, maximum of 8 tablets in 24 hours 02/22/20 20 2019 Inactive True Metrix Glucose Test Strip RxNorm: 1 Test Strips Miscellaneous QAM 02/22/20 20 2019 Inactive 100/container cetirizine 10 mg tablet RxNorm: 1901555 1 Tablet(s) PO daily 01/17/20 20 2019 Inactive levothyroxine 50 mcg tablet RxNorm: 626003 1 Tablet(s) PO daily 01/17/20 20 2020 Inactive gabapentin 300 mg capsule RxNorm: 930384 1 Capsule(s) PO TID 01/17/20 20 2019 Inactive loperamide 2 mg tablet RxNorm: 858767 1 Tablet(s) Oral as needed take one tablet after each loose stool, maximum of 8 tablets in 24 hours 01/17/20 20 2019 Inactive quetiapine 100 mg tablet RxNorm: 003352 1 Tablet(s) Oral every night at bedtime 01/17/20 20 2019 Inactive lisinopril 2.5 mg tablet RxNorm: 403151 1 Tablet(s) PO daily 01/15/20 20 2020 Inactive Singulair 10 mg tablet RxNorm: 238708 1 Tablet(s) PO daily 01/15/20 20 2020 Inactive levothyroxine 50 mcg tablet RxNorm: 459201 1 Tablet(s) PO daily 01/15/20 20 2019 Inactive gabapentin 300 mg capsule RxNorm: 795229 1 Capsule(s) PO TID 01/15/20 20 2019 Inactive cetirizine 10 mg tablet RxNorm: 0278184 1 Tablet(s) PO daily 01/15/20 20 2019 Inactive gentamicin 0.3 % eye drops RxNorm: 655053 1 Drop(s) ophthalmic (eye) four times a day 12/29/19 20 2019 Inactive gentamicin 0.3 % eye drops RxNorm: 313109 1 Drop(s) ophthalmic (eye) four times a day 12/29/19 20 2019 Inactive gentamicin 0.3 % eye drops RxNorm: 244560 1 Drop(s) ophthalmic (eye) four times a day 12/29/19 20 2019 Inactive hydrochlorothiazide 25 mg tablet RxNorm: 986411 1 Tablet(s) Oral every day 12/21/19 20 2019 Inactive Sudafed 12 Hour 120 mg tablet,extended release RxNorm: 5207264 TAKE (1) TABLET BY MOUTH EVERY 12 HOURS NEEDED 12/21/19 20 2019 Inactive loperamide 2 mg tablet RxNorm: 846109 1 Tablet(s) Oral as needed take one tablet after each loose stool, maximum of 8 tablets in 24 hours 12/11/19 20 2019 Inactive loperamide 2 mg tablet RxNorm: 655885 1 Tablet(s) Oral as needed take one tablet after each loose stool, maximum of 8 tablets in 24 hours 12/11/19 20 2019 Inactive atorvastatin 40 mg tablet RxNorm: 658680 1 Tablet(s) Oral every day 11/29/19 20 2020 Inactive sertraline 100 mg tablet RxNorm: 175722 1 Tablet(s) Oral 11/28/19 20 2019 Inactive quetiapine 100 mg tablet RxNorm: 105615 1 Tablet(s) Oral every night at bedtime 11/28/19 20 2019 Inactive omeprazole 20 mg capsule,delayed release RxNorm: 391209 1 Capsule(s) Oral every day 11/20/19 20 2019 Inactive amoxicillin 250 mg capsule RxNorm: 654540 1 Capsule(s) Oral three times a day 11/07/19 20 2019 Inactive multivitamin with iron-mineral tablet RxNorm: 1 Tablet(s) Oral every day 10/29/19 20 2021 Inactive cetirizine 10 mg tablet RxNorm: 9450320 1 Tablet(s) PO daily 10/20/19 20 2019 Inactive This refill negates all other refills of this medication. Please do not auto refill Singulair 10 mg tablet RxNorm: 525386 1 Tablet(s) PO daily 10/20/19 20 2019 Inactive This refill negates all other refills of this medication gabapentin 300 mg capsule RxNorm: 364345 1 Capsule(s) PO TID 10/20/19 20 2019 Inactive lisinopril 2.5 mg tablet RxNorm: 225525 1 Tablet(s) PO daily 10/20/19 20 2019 Inactive levothyroxine 50 mcg tablet RxNorm: 420999 1 Tablet(s) PO daily 10/20/19 20 2019 Inactive This refill negates all other refills of this medication fenugreek seed extract 500 mg capsule RxNorm: 1 Capsule(s) Oral three times a day 10/17/19 20 2021 Inactive hydrochlorothiazide 25 mg tablet RxNorm: 555070 1 Tablet(s) Oral every day 10/17/19 20 2019 Inactive Alcohol Prep Pads RxNorm: 747326 1 Patch TOP QAM 10/16/19 20 2020 Inactive loperamide 2 mg tablet RxNorm: 076341 1 Tablet(s) Oral as needed take one [...] 2019 Inactive hydrochlorothiazide 25 mg tablet RxNorm: 012961 1 Tablet(s) Oral every day 09/19/202019 Inactive Sudafed 12 Hour 120 mg tablet,extended release RxNorm: 1100404 1 Tablet(s) Oral every 12 hours as needed 09/11/20 19 2018 Inactive omeprazole 20 mg capsule,delayed release RxNorm: 509042 1 Capsule(s) Oral every day 09/07/20 19 2019 Inactive Sudafed 12 Hour 120 mg tablet,extended release RxNorm: 5857676 1 Tablet(s) Oral every 12 hours as needed 09/04/20 19 2018 Inactive pantoprazole 40 mg tablet,delayed release RxNorm: 743943 1 Tablet(s) Oral every day 08/24/20 19 2018 Inactive discontinue any other H2Blkr. and PPI albuterol sulfate 2.5 mg/3 mL (0.083 %) solution for nebulization RxNorm: 034974 1 Vial Inhalation every four hours as needed as needed for dyspnea 08/17/20 19 2019 Inactive 60/box. This refill negates all other refills of this medication. Please do not fill early. Please do not auto refill. Symbicort 160 mcg-4.5 mcg/actuation HFA aerosol inhaler RxNorm: 6657733 2 Puff(s) INH BID 08/17/20 No Stop Date Active Alcohol Prep Pads RxNorm: 185090 1 Patch TOP QAM 08/17/20 19 2019 Inactive Ventolin HFA 90 mcg/actuation aerosol inhaler RxNorm: 137584 2 Puff(s) INH QID 08/09/20 19 2019 Inactive Please do not fill early. Please do not auto refill. This refill negates all other refills of this medication True Metrix Glucose Test Strip RxNorm: 1 Test Strips Miscellaneous QA 08/09/20 19 2019 Inactive 100/container atorvastatin 40 mg tablet RxNorm: 043657 1 Tablet(s) Oral every day 07/04/20 19 2019 Inactive levmetamfetamine 50 mg nasal inhaler RxNorm: 1 Unit(s) NASAL Q3-4H Do not use more than every 3 hours or 8 times/24hours 06/26/20 19 2021 Inactive Please do not auto refill. This refill negates all other refills of this medication buspirone 7.5 mg tablet RxNorm: 602993 1 Tablet(s) PO BID 06/26/20 19 2020 Inactive This refill negates all other refills of this medication hydrochlorothiazide 12.5 mg tablet RxNorm: 174821 1 Tablet(s) PO QAM 06/26/20 19 2019 Inactive Ventolin HFA 90 mcg/actuation aerosol inhaler RxNorm: 330066 2 Puff(s) INH QID 06/26/20 19 2018 Inactive Please do not fill early. Please do not auto refill. This refill negates all other refills of this medication Singulair 10 mg tablet RxNorm: 351605 1 Tablet(s) PO daily 06/26/20 19 2019 Inactive This refill negates all other refills of this medication cetirizine 10 mg tablet RxNorm: 4604868 1 Tablet(s) PO daily 06/26/20 19 2019 Inactive This refill negates all other refills of this medication. Please do not auto refill levothyroxine 50 mcg tablet RxNorm: 880957 1 Tablet(s) PO daily 06/26/20 19 2019 Inactive This refill negates all other refills of this medication diclofenac sodium 75 mg tablet,delayed release RxNorm: 317135 1 Tablet(s) PO BID 06/26/20 19 2019 Inactive This refill negates all other refills of this medication ranitidine 150 mg tablet RxNorm: 209836 1 Tablet(s) PO BID 06/26/20 19 2018 Inactive This refill negates all other refills of this medication Calcium 600-D3 Plus (mag-zinc) 600 mg calcium-800 unit-50 mg tablet RxNorm: 1 Tablet(s) PO daily take an additonal tablet for itching. 06/26/20 19 2018 Inactive This refill negates all other refills of this medication albuterol sulfate 2.5 mg/3 mL (0.083 %) solution for nebulization RxNorm: 489714 1 Vial INH QID 06/26/20 19 2018 Inactive 60/box. This refill negates all other refills of this medication. Please do not fill early. Please do not auto refill. lisinopril 2.5 mg tablet RxNorm: 963805 1 Tablet(s) PO daily 06/21/20 19 2019 Inactive gabapentin 300 mg capsule RxNorm: 199024 1 Capsule(s) PO TID 06/21/20 19 2019 Inactive atorvastatin 20 mg tablet RxNorm: 676514 1 Tablet(s) PO QHS 06/07/20 19 2018 Inactive This refill negates all other refills of this medication TRUEplus Lancets 30 gauge RxNorm: 1 Lancets Miscellaneous QAM 05/29/20 19 2018 Inactive 100/box gabapentin 300 mg capsule RxNorm: 486377 1 Capsule(s) PO TID 05/03/20 19 2018 Inactive Flmarkmaury Complete (iron) 18 mg iron chewable tablet RxNorm: 1 Tablet(s) PO daily 04/04/20 19 2021 Inactive This refill negates all other refills of this medication gabapentin 300 mg capsule RxNorm: 086346 1 Capsule(s) PO TID as needed 02/01/202018 Inactive True Metrix Glucose Test Strip RxNorm: 1 Test Strips Miscellaneous QAM 02/01/20 19 2018 Inactive 100/container Alcohol Prep Pads RxNorm: 164135 1 Patch TOP QAM 02/01/202018 Inactive TRUEplus Lancets 30 gauge RxNorm: 1 Lancets Miscellaneous QAM 02/01/20 19 2018 Inactive 100/box lisinopril 2.5 mg tablet RxNorm: 239030 1 Tablet(s) PO daily 12/28/192018 Inactive ranitidine 150 mg tablet RxNorm: 144659 1 Tablet(s) PO BID 10/21/192018 Inactive This refill negates all other refills of this medication albuterol sulfate 2.5 mg/3 mL (0.083 %) solution for nebulization RxNorm: 821489 1 Vial INH QID 10/21/192018 Inactive 60/box. [...] this medication gabapentin 300 mg capsule RxNorm: 546412 1 Capsule(s) PO TID as needed 10/21/192018 Inactive atorvastatin 20 mg tablet RxNorm: 501764 1 Tablet(s) PO QHS 10/21/19 19 2018 Inactive This refill negates all other refills of this medication trazodone 50 mg tablet RxNorm: 789570 1 Tablet(s) PO QHS 10/21/19 19 2018 Inactive This refill negates all other refills of this medication Ventolin HFA 90 mcg/actuation aerosol inhaler RxNorm: 223473 2 Puff(s) INH QID 10/21/19 19 2018 Inactive Please do not fill early. Please do not auto refill. This refill negates all other refills of this medication Calcium 600-D3 Plus 600 mg calcium-800 unit-50 mg tablet RxNorm: 1 Tablet(s) PO daily take an additonal tablet for itching. 10/21/192018 Inactive This refill negates all other refills of this medication Singulair 10 mg tablet RxNorm: 621123 1 Tablet(s) PO daily 10/21/192018 Inactive This refill negates all other refills of this medication buspirone 7.5 mg tablet RxNorm: 389842 1 Tablet(s) PO BID 10/21/19 19 2018 Inactive This refill negates all other refills of this medication diclofenac sodium 75 mg tablet,delayed release RxNorm: 439026 1 Tablet(s) PO BID 10/21/19 19 2018 Inactive This refill negates all other refills of this medication hydrochlorothiazide 12.5 mg tablet RxNorm: 860933 1 Tablet(s) PO QAM 10/21/192018 Inactive metoprolol succinate ER 50 mg tablet,extended release 24 hr RxNorm: 387321 1 Tablet(s) PO daily 10/21/192018 Inactive This refill negates all other refills of this medication levothyroxine 50 mcg tablet RxNorm: 866039 1 Tablet(s) PO daily 10/21/19 19 2018 Inactive This refill negates all other refills of this medication cetirizine 10 mg tablet RxNorm: 8315959 1 Tablet(s) PO daily 10/21/19 19 2018 Inactive This refill negates all other refills of this medication. Please do not auto refill Flintstones Complete (iron) 18 mg iron chewable tablet RxNorm: 1 Tablet(s) PO daily 10/21/19 19 2018 Inactive This refill negates all other refills of this medication buspirone 7.5 mg tablet RxNorm: 152416 1 Tablet(s) PO BID 10/12/19 19 2018 Inactive cetirizine 10 mg tablet RxNorm: 4600325 1 Tablet(s) PO daily 09/28/20 18 2018 Inactive Guaiasorb DM 10 mg-100 mg/5 mL oral liquid RxNorm: 973969 10 Milliliter(s) PO As needed every 4 hr 09/24/202018 Inactive Vicks Vaporub 4.7 %-1.2 %-2.6 % topical ointment RxNorm: 5904041 1 Application TOP TID 09/24/20 18 2018 Inactive levmetamfetamine 50 mg nasal inhaler RxNorm: 1 Unit(s) NASAL Q3-4H 09/24/20 18 2017 Inactive sertraline 50 mg tablet RxNorm: 031417 1 Tablet(s) PO daily 09/09/20 18 2018 Inactive Please note dose trazodone 50 mg tablet RxNorm: 697081 1 Tablet(s) PO QHS 09/06/20 18 2018 Inactive sertraline 50 mg tablet RxNorm: 267407 1 Tablet(s) PO daily 09/06/20 18 2017 Inactive amoxicillin 500 mg tablet RxNorm: 974358 1 Tablet(s) PO Q12H 08/31/20 18 2017 Inactive albuterol sulfate 2.5 mg/3 mL (0.083 %) solution for nebulization RxNorm: 742843 1 Vial INH QID 08/10/20 18 2018 Inactive 60/box. Please do not fill early. Please do not auto refill. Prozac 10 mg capsule RxNorm: 796700 1 Capsule(s) PO daily 08/09/20 18 2017 Inactive buspirone 7.5 mg tablet RxNorm: 368027 1 Tablet(s) PO BID 08/09/20 18 2018 Inactive gabapentin 300 mg capsule RxNorm: 339449 1 Capsule(s) PO TID as needed 08/01/20 18 2018 Inactive hydrochlorothiazide 12.5 mg tablet RxNorm: 437189 1 Tablet(s) PO QAM 08/01/20 18 2018 Inactive ranitidine 150 mg tablet RxNorm: 390900 1 Tablet(s) PO BID 08/01/20 18 2018 Inactive Macrobid 100 mg capsule RxNorm: 681173 1 Capsule(s) PO Q12H 06/21/20 18 2017 Inactive Singulair 10 mg tablet RxNorm: 458063 1 Tablet(s) PO daily 06/14/20 18 2018 Inactive Ventolin HFA 90 mcg/actuation aerosol inhaler RxNorm: 5922902 2 Puff(s) INH QID 06/14/20 18 2018 Inactive Singulair 10 mg tablet RxNorm: 111935 1 Tablet(s) PO daily 06/14/20 18 2017 Inactive buspirone 7.5 mg tablet RxNorm: 122849 1 Tablet(s) PO BID 06/14/20 18 2017 Inactive Prozac 10 mg capsule RxNorm: 065869 1 Capsule(s) PO daily 06/14/20 18 2017 Inactive Neilmed Pediatric Sinus Rinse Refill packet RxNorm: 1 Unit Dose NASAL PRN 05/31/20 18 2021 Inactive diclofenac sodium 75 mg tablet,delayed release RxNorm: 374521 1 Tablet(s) PO BID 05/31/20 18 2017 Inactive lisinopril 2.5 mg tablet RxNorm: 185470 1 Tablet(s) PO daily 05/31/20 18 2017 Inactive metoprolol succinate ER 50 mg tablet,extended release 24 hr RxNorm: 346459 1 Tablet(s) PO daily 05/31/20 18 2017 Inactive levothyroxine 50 mcg tablet RxNorm: 737400 1 Tablet(s) PO daily 05/31/20 18 2017 Inactive TRUEplus Lancets 30 gauge RxNorm: 1 Lancets Miscellaneous QAM 05/31/20 18 2017 Inactive 100/box Ventolin HFA 90 mcg/actuation aerosol inhaler RxNorm: 800538 2 Puff(s) INH QID 05/31/20 18 2017 Inactive Aleve 220 mg capsule RxNorm: 3658824 1 Capsule(s) PO BID 05/31/20 18 2018 Inactive ranitidine 150 mg tablet RxNorm: 959270 1 Tablet(s) PO BID 05/31/20 18 2017 Inactive gabapentin 300 mg capsule RxNorm: 982576 1 Capsule(s) PO TID as needed 05/31/20 18 2017 Inactive atorvastatin 20 mg tablet RxNorm: 327190 1 Tablet(s) PO QHS 05/31/20 18 2017 Inactive True Metrix Glucose Test Strip RxNorm: 1 Test Strips Miscellaneous QAM 05/31/20 18 2017 Inactive 50/container Calcium 600-D3 Plus 600 mg calcium-800 unit-50 mg tablet RxNorm: 1 Tablet(s) PO daily take an additonal tablet for itching. 05/31/20 18 2017 Inactive hydrochlorothiazide 12.5 mg tablet RxNorm: 643536 1 Tablet(s) PO QAM 05/31/20 18 2017 Inactive Flintstones Complete (iron) 18 mg iron chewable tablet RxNorm: 1 Tablet(s) PO daily 05/31/20 18 2017 Inactive d-mannose oral powder RxNorm: PO 18 2021 Inactive True Metrix Glucose Meter RxNorm: miscellaneous 08/17/20 19 2018 Inactive sertraline 50 mg tablet RxNorm: 872015 1 Tablet(s) PO daily 11/28/19 20 2019 Inactive loperamide 2 mg tablet RxNorm: 994505 oral 09/29/20 19 2018 Inactive Symbicort 160 mcg-4.5 mcg/actuation HFA aerosol inhaler RxNorm: 3285352 2 Puff(s) INH BID 08/17/20 19 2018 Inactive Medication Administered No Medication Administered data Procedures Procedure Codes Date Electrocardiogram CPT-4: 82120 05/14/2020 Electrocardiogram Finding/NormalCPT-4: 56510Rapzfmz88/12/2020Tobacco Assessment/ScreeningCPT-4: TCA01/01/2020Fall Risk AssessmentSNOMED CT: 234335264 CPT-4: DFRA01/01/2020Functional AssessmentCPT-4: DFA01/01/2020[place] Fany AssessmentCPT-4: DSWA11/28/2019Patient Health QuestionnaireCPT-4: DPHQ11/28/2019 [place] Fany AssessmentCPT-4: DSWA10/17/2019HypertensionCPT-4: HTN10/17/[address]: 675824302 CPT-4: DFRA09/19/2019Functional AssessmentCPT-4: DFA111/20/2018Urinalysis, dip stickCPT-4: 4232997Tobacco Assessment/ScreeningCPT-4: TCA05/24/2019 Patient Health QuestionnaireCPT-4: DPHQ05/24/2019AHA/REBECCA Classification AssessmentCPT-4: DAHA04/25/2019Controlled Substance ReportCPT-4: CTRSU04/25/2019 Urinalysis, dip stickCPT-4: 841067503/28/2019Urinalysis, dip stickCPT-4: 97087 03/28/20193529Z7J-ZpkxbvfahglrvagEWC-1: 15988IxqpyxxE8G-NyumoxhjxblurmmEVU-7: 75583 OroaiedB4W-IutzexgzzjgyczjJET-2: 86874XtqrzoxZnfcvilckv ReferralSNOMED CT: 675353538 CPT-4: W72Bokiqvx Vital Signs Date Vital 05/14/2020 Blood Pressure 1: 100/82 Code: 8480-6 BMI: 54.7 Code: 16467-3 Heart Rate 1: 86 bpm Height: 4'11 Code: 8302-2 Respiratory Rate: 18 bpm SpO2: 98% Temperature: 36.6 (C) / 97.9 (F) Weight: 271 lbs Code: 17837-5 Reason For Visit Reason For Visit Effective Dates Notes hypertension 05/14/2020 diabetes mellitus 05/14/2020 Interim health update 05/14/2020 Encounters Encounter Performer Location Location Address Codes Magdi e HOME VISIT EST PATIENT Diagnosis: Type 2 diabetes mellitus with peripheral neuropathy[ICD10: E11.42] Diagnosis: Right wrist pain[ICD10: M25.531] Diagnosis: Hypertensive heart disease with heart failure[ICD10: I11.0]Anna Bourgeois [id number] [place] [address] [address] [place] [address] CPT-4: 0681966 Plan of Care Planned Activity Notes Codes Status Date Visit Plan: M25.531-719.43 Right wrist pain patient complaining of chronic pain to right wrist, denies known injury-routine follow up with Dr Watson-orthopedics quit outpatient PT as didn't feel it was helpful E11.42-250.60 Type 2 diabetes mellitus with peripheral neuropathy testing daily, at varied times range 110-159, patient reports feeling symptomatic for BS <100, will add second testing PRN for symptoms 04/14/2020 hemoglobin 5.6 10/17/2019 Hemoglobin A1C 6.0 07/04/2019 Hgb A1C 5.6 10/17/2019 [place] Fany 04/11-instructed on good daily foot care [...] 2.9 all numbers WNL 10/17/2019 GFR 90 05/14/2020 EKG NSR 05/14/2020 OVN SpO2 ordered N18.9-585.9 Chronic kidney disease, unspecified avoid nephro toxic drugs, 04/17/2020 GFR >100, renal function remains stable Patient denies ability to drink water stating that it dehydrates her-doesn't know diagnosis, but indicates she was told this by previous urologist routine urology follow up G47.33-327.23 Obstructive sleep apnea (adult) (pediatric) J45.909-493.90 Asthma continue inhalers nebulizer cpap not wearing for the past few days-feels likesmothering with the mask on- Dr. Garcia, pulmonology next telehealth visit 05/26/2020 F43.23-309.28 Adjustment disorder with mixed anxiety and depressed mood routine follow up [place] [facility] [place] E03.9-244.9 Hypothyroidism, unspecified cont levothyroxine N39.46-788.33 Mixed incontinence use of incontinence supplies R55-780.2 Syncope and collapse denies any recent episodes advise to check BS when feeling light headed Z68.43-V85.43 Adult BMI 50.0-59.9 kg/sq m continues to loose weight trying toavoid soda, drinking sparkling flavored pal and occasional Heike Green Tea and honey Z12.4-V76.2 Encounter for screening for malignant neoplasm of cervix last pap January 2019 new appt for pap in June 2020 Z01.89-V72.85 Encounter for screening for tobacco use [...] and frequency ??? Practicing appropriate Social Distancing/isolation ? ?? Limiting face touching ??? Proper sanitization of high contact areas in their environment ??? Reporting procedures if symptoms/exposure occur ??? Known Coronavirus transmission modalities ??? Common symptoms of Covid-19 disease ??? Known high risk populations for developing severe/fatal infections ??? Covid-19 disease transmission from asymptomatic carriers *The person contacted during this visit verbalized understanding of all above topics. 05/14/2020Patient Education: Patient Medication KlwccvuQkvzhobrz46/12/2020 Patient Education: GopnyrpqCeuslttqj53/12/2020Patient Education: Hypertension Zdkmqbdmc62/12/2020Care Plan: Overnight Pulse qoGkzsnam62/12/2020Appointment: Anna Culver WPtel: [phone] [address] [id number]: Anna Culver WPtel: [phone] [place] [address] [id number]: Anna Culver WPtel: [phone] [place] [address] [id number]: Anna Culver WPtel: [phone] [place] [address] [id number]: Anna Culver WPtel: [address] [place] [address] [id number]: Anna Culver WPtel: [address] [place] [address] [id number]: Anna Culver WPtel: [address] [place] [address] [id number]: Anna Culver WPtel: [address] [place] [address] [id number]/20/2018Appointment: Sudha Hernadez WPtel: [address] [facility] [id number]: Sudha Hernadez WPtel: [address] [facility] [place] [id number]: Charlene Oropeza WPtel: [address] [facility] [place] [id number]: Enedelia [id number]: Charlene Oropeza WPtel: [address] [facility] [id number]: Rasta Palafox WPtel: [address] [facility] [id number]: Rasta Palafox WPtel: [address] [facility] b [id number]: Rasta Palafox WPtel: [address] [facility] [id number]: Rasta Palafox WPtel: [address] [facility] [id number]: Pending Gynecology Referral InformationReferral ProcessedReferral: Pending Pulmonology Referral InformationReferralProcessed Referral: Pending Psychiatry Referral InformationReferralInitiatedReferral: Pending Respiratory Services Referral InformationReferralInitiatedReferral: Pending Ophthalmology Referral InformationReferralInitiatedReferral: [facility] WPtel: [address] [place] [address] [address] [facility] USWriter placed a call out to the patient to notify her that it has been recommended that she be seenby a urologist. Patient agreed to be seen, does not have a provider of choice and no transportationissues. [employer] faxed referral and clinical notes to [facility] in [place], [place] near the patient's home. Patient to [...] seen and prefers a provider in the [place] or [facility]. [employer] Technician placed a call out to everyone listed in the area and the only location that was able to accept the patient's insurance was [facility] [address] [place] [address] and spoke with Maylin. Maylin asked that the patient's referral, face sheet and visit notes be faxed to . [employer] Technician faxed over requested documents. Patient appointment confirmation letter generated and mailed to her home address. Patient to call to schedule an appointment.ProcessedReferral: [facility] WPtel: [address] [facility] [address] [id number] USPatient notified that it has been advised that she be seen by Neurology. Patient agreed to be seen and prefers to be seen by a provider in the [place], [place] area. Patient denies any concerns with transportation, and prefers to schedule her own appointment. [employer] placed a call out to [facility] [...] Assessment and plan reviewed with patient . M25.533-700.43 Right wrist pain patient complaining of chronic pain to right wrist, denies known injury-routine follow up with Dr Watson-orthopedics quit outpatient PT as didn't feel it was helpful E11.42-250.60 Type 2 diabetes mellitus with peripheral neuropathy testing daily, at varied times range 110-159, patient reports feeling symptomatic for BS <100, will add second testing PRN for symptoms 04/14/2020 hemoglobin 5.6; 10/17/2019 Hemoglobin A1C 6.0; 07/04/2019 Hgb [...] 2.9 all numbers WNL; 10/17/2019 GFR 90 05/14/2020 EKG NSR 05/14/2020 OVN SpO2 ordered N18.9-585.9 Chronic kidney disease, unspecified avoid nephro toxic drugs, 04/17/2020 GFR >100, renal function remains stable; Patient denies ability to drink water stating that it dehydrates her-doesn't know diagnosis, but indicates she was told this by previous urologist routine urology follow up G47.33-327.23 Obstructive sleep apnea (adult) (pediatric); J45.909-493.90 Asthma continue inhalers nebulizer cpap not wearing for the past few days-feels like smothering with the mask on- Dr. Garcia, pulmonology next telehealth visit 05/26/2020 F43.23-309.28 Adjustment disorder with mixed anxiety and depressed mood routine follow up [place] [facility] [place] E03.9-244.9 Hypothyroidism, unspecified cont levothyroxine N39.46-788.33 Mixed [...] 2019 new appt for pap in June 2020 Z01.89-V72.85 Encounter for screening for tobacco use [...] visit verbalized understanding of all above topics. 05/14/2020 Medical Equipment No Medical Equipment data Advance Directives No Advance Directive data
--- OUTSIDE RECORDS SUMMARY | 2023-12-07 02:12 | XMS_ITS | CCD ---
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 Name Role Phone Palomo KING, Anna Primary Care Provider Unav ailable Unavailable Chronic Care Management Unavaila ble Summary Purpose DataExchange Insurance Providers Payer name Policy type / Coverage type Covered constitution party ID Effective Begin Date Effective End Date [employer]KI [employer] [facility] [id number] Unknown Unknown Family history Mother Diagnosis Age [...] 05/31/2018 Education level Unknown Some High School 10th05/31/20180164LlfxnwilgoOpujydzTvxrogbvbb60/29/2018Tobacco historySNOMED CT: 903315318Kpu never smoked or chewed kodzlhz0105/31/2018Alcohol historySNOMED CT: 388985395Jvaov drinks agyxdla2105/31/2018Has the patient ever used illegal drugs? UnknownHas never used illegal drugs05/31/2018DNR Order/ Advanced Directive UnknownFull Code05/31/2018 Allergies, Adverse Reactions, Alerts Substance Reaction Codes Entered Date Inactivated Date Status *No known food allergies Ygbmtfy3209/06/2018No Inactive DateActiveMethylprednisolonehivesRxNorm: 6902 09/06/2018No Inactive DateActive Problems Condition Codes Effective Dates Condition St atus (Z12.4-V76.2) Encounter for screening fo r malignant neoplasm of cervix ICD-10: Z12.4 ICD-9: V76.207/ActiveChronic kidney disease, unspecifiedICD-10: N18.9 ICD-9: 585.909/ActiveEncounter for immunizationICD-10: Z23 ICD-9: V04.8109/06/2020ActiveHyperlipidemia, unspecifiedICD-10: E78.5 ICD-9: 272.408/ActiveHypertensive heart disease with heart failureICD-10: I11.0 ICD-9: 402.9107/ActiveHypothyroidism, unspecifiedICD-10: E03.9 ICD-9: 244.912ActiveType 2 diabetes mellitus with peripheral neuropathy ICD-10: E11.42 ICD-9: 250.6002ActiveRight wrist painICD-10: M25.531 ICD-9: 719.4308Active(Z12.11-V76.51) Encounter for screening for malignant neoplasm of colonICD-10: Z12.11 ICD-9: V76.5107/Active(Z12.31-V76.12) Encounter for screening mammogram for malignant neoplasm of breastICD-10: Z12.31 ICD-9: V76.1207/ActiveAdult BMI 50.0-59.9 kg/sq mICD-10: Z68.43 ICD-9: V85.4308ActiveEssential (primary) hypertensionICD-10: I10 ICD-9: 401.901ActiveAbrasion of toeICD-10: S90.416A ICD-9: 917.005ActiveObstructive sleep apnea (adult) (pediatric)ICD-10: G47.33 ICD-9: 327.2309ActiveEncounter [...] ICD-9: 356.908ActivePatient Not SeenICD-10: UXZ.01 ICD-9: XZ0.107ActiveOther halfway (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ICD-10: Z79.899 ICD-9: V58.6907ActiveChest pain, [...] 12 Hour 120 mg tablet,extended release RxNorm: 6163672 TAKE 1 TABLET BY MOUTH EVERY 12 HOURS NEEDED 06/11/20 20 2019 Inactive hydrochlorothiazide 25 mg tablet RxNorm: 891409 TAKE (1) TABLET BY MOUTH EVERY DAY 06/11/20 20 2019 Inactive omeprazole 20 mg capsule,delayed release RxNorm: 896116 TAKE 1 CAPSULE BY MOUTH EVERY DAY 05/14/20 20 2020 Inactive metformin 500 mg tablet RxNorm: 095609 1 Tablet(s) Oral every day 05/12/20 20 2019 Inactive True Metrix Glucose Test Strip RxNorm: 1 Test Strips Miscellaneous two times a day as needed 04/17/20 No Stop Date Active metformin 500 mg tablet RxNorm: 212543 1 Tablet(s) Oral every day 04/17/20 20 2019 Inactive diclofenac sodium 75 mg tablet,delayed release RxNorm: 739221 1 Tablet(s) PO BID 04/14/202021 Inactive This refill negates all other refills of this medication Sudafed 12 Hour 120 mg tablet,extended release RxNorm: 2672646 TAKE 1 TABLET BY MOUTH EVERY 12 HOURS NEEDED 03/14/20 20 2019 Inactive True Metrix Glucose Test Strip RxNorm: 1 Test Strips Miscellaneous every morning 03/13/20 20 2019 Inactive 100/container loperamide 2 mg tablet RxNorm: 748761 1 Tablet(s) Oral as needed take one tablet after each loose stool, maximum of 8 tablets in 24 hours 02/22/20 20 2019 Inactive True Metrix Glucose Test Strip RxNorm: 1 Test Strips Miscellaneous QAM 02/22/20 20 2019 Inactive 100/container cetirizine 10 mg tablet RxNorm: 6260272 1 Tablet(s) PO daily 01/17/20 20 2019 Inactive levothyroxine 50 mcg tablet RxNorm: 251771 1 Tablet(s) PO daily 01/17/20 20 2020 Inactive gabapentin 300 mg capsule RxNorm: 595206 1 Capsule(s) PO TID 01/17/20 20 2019 Inactive loperamide 2 mg tablet RxNorm: 482581 1 Tablet(s) Oral as needed take one tablet after each loose stool, maximum of 8 tablets in 24 hours 01/17/20 20 2019 Inactive quetiapine 100 mg tablet RxNorm: 274567 1 Tablet(s) Oral every night at bedtime 01/17/20 20 2019 Inactive lisinopril 2.5 mg tablet RxNorm: 227880 1 Tablet(s) PO daily 01/15/20 20 2020 Inactive Singulair 10 mg tablet RxNorm: 539091 1 Tablet(s) PO daily 01/15/20 20 2020 Inactive levothyroxine 50 mcg tablet RxNorm: 124164 1 Tablet(s) PO daily 01/15/20 20 2019 Inactive gabapentin 300 mg capsule RxNorm: 709050 1 Capsule(s) PO TID 01/15/20 20 2019 Inactive cetirizine 10 mg tablet RxNorm: 4254793 1 Tablet(s) PO daily 01/15/20 20 2019 Inactive gentamicin 0.3 % eye drops RxNorm: 097323 1 Drop(s) ophthalmic (eye) four times a day 12/29/19 20 2019 Inactive gentamicin 0.3 % eye drops RxNorm: 756373 1 Drop(s) ophthalmic (eye) four times a day 12/29/19 20 2019 Inactive gentamicin 0.3 % eye drops RxNorm: 424016 1 Drop(s) ophthalmic (eye) four times a day 12/29/19 20 2019 Inactive hydrochlorothiazide 25 mg tablet RxNorm: 091239 1 Tablet(s) Oral every day 12/21/19 20 2019 Inactive Sudafed 12 Hour 120 mg tablet,extended release RxNorm: 7739857 TAKE (1) TABLET BY MOUTH EVERY 12 HOURS NEEDED 12/21/19 20 2019 Inactive loperamide 2 mg tablet RxNorm: 739526 1 Tablet(s) Oral as needed take one tablet after each loose stool, maximum of 8 tablets in 24 hours 12/11/19 20 2019 Inactive loperamide 2 mg tablet RxNorm: 899119 1 Tablet(s) Oral as needed take one tablet after each loose stool, maximum of 8 tablets in 24 hours 12/11/19 20 2019 Inactive atorvastatin 40 mg tablet RxNorm: 085083 1 Tablet(s) Oral every day 11/29/19 20 2020 Inactive quetiapine 100 mg tablet RxNorm: 426294 1 Tablet(s) Oral every night at bedtime 11/28/19 20 2019 Inactive sertraline 100 mg tablet RxNorm: 318994 1 Tablet(s) Oral 11/28/19 20 2019 Inactive omeprazole 20 mg capsule,delayed release RxNorm: 761492 1 Capsule(s) Oral every day 11/20/19 20 2019 Inactive amoxicillin 250 mg capsule RxNorm: 333778 1 Capsule(s) Oral three times a day 11/07/19 20 2019 Inactive multivitamin with iron-mineral tablet RxNorm: 1 Tablet(s) Oral every day 10/29/19 20 2021 Inactive cetirizine 10 mg tablet RxNorm: 8154433 1 Tablet(s) PO daily 10/20/19 20 2019 Inactive This refill negates all other refills of this medication. Please do not auto refill Singulair 10 mg tablet RxNorm: 498318 1 Tablet(s) PO daily 10/20/19 20 2019 Inactive This refill negates all other refills of this medication gabapentin 300 mg capsule RxNorm: 626950 1 Capsule(s) PO TID 10/20/19 20 2019 Inactive lisinopril 2.5 mg tablet RxNorm: 550015 1 Tablet(s) PO daily 10/20/19 20 2019 Inactive levothyroxine 50 mcg tablet RxNorm: 934531 1 Tablet(s) PO daily 10/20/19 20 2019 Inactive This refill negates all other refills of this medication fenugreek seed extract 500 mg capsule RxNorm: 1 Capsule(s) Oral three times a day 10/17/19 20 2021 Inactive hydrochlorothiazide 25 mg tablet RxNorm: 460525 1 Tablet(s) Oral every day 10/17/19 20 2019 Inactive Alcohol Prep Pads RxNorm: 428318 1 Patch TOP QAM 10/16/19 20 2020 Inactive loperamide 2 mg tablet RxNorm: 586359 1 Tablet(s) Oral as needed take one [...] 2019 Inactive hydrochlorothiazide 25 mg tablet RxNorm: 650107 1 Tablet(s) Oral every day 09/19/20 19 2019 Inactive Sudafed 12 Hour 120 mg tablet,extended release RxNorm: 8362996 1 Tablet(s) Oral every 12 hours as needed 09/11/20 19 2018 Inactive omeprazole 20 mg capsule,delayed release RxNorm: 115204 1 Capsule(s) Oral every day 09/07/20 19 2019 Inactive Sudafed 12 Hour 120 mg tablet,extended release RxNorm: 8062672 1 Tablet(s) Oral every 12 hours as needed 09/04/20 19 2018 Inactive pantoprazole 40 mg tablet,delayed release RxNorm: 772766 1 Tablet(s) Oral every day 08/24/20 19 2018 Inactive discontinue any other H2Blkr. and PPI albuterol sulfate 2.5 mg/3 mL (0.083 %) solution for nebulization RxNorm: 112058 1 Vial Inhalation every four hours as needed as needed for dyspnea 08/17/202019 Inactive 60/box. This refill negates all other refills of this medication. Please do not fill early. Please do not auto refill. Symbicort 160 mcg-4.5 mcg/actuation HFA aerosol inhaler RxNorm: 8919129 2 Puff(s) INH BID 08/17/20 No Stop Date Active Alcohol Prep Pads RxNorm: 492017 1 Patch TOP QAM 08/17/202019 Inactive Ventolin HFA 90 mcg/actuation aerosol inhaler RxNorm: 644457 2 Puff(s) INH QID 08/09/202019 Inactive Please do not fill early. Please do not auto refill. This refill negates all other refills of this medication True Metrix Glucose Test Strip RxNorm: 1 Test Strips Miscellaneous QAM 08/09/20 19 2019 Inactive 100/container atorvastatin 40 mg tablet RxNorm: 247435 1 Tablet(s) Oral every day 07/04/20 19 2019 Inactive levmetamfetamine 50 mg nasal inhaler RxNorm: 1 Unit(s) NASAL Q3-4H Do not use more than every 3 hours or 8 times/24hours 06/26/20 19 2021 Inactive Please do not auto refill. This refill negates all other refills of this medication buspirone 7.5 mg tablet RxNorm: 185840 1 Tablet(s) PO BID 06/26/20 19 2020 Inactive This refill negates all other refills of this medication hydrochlorothiazide 12.5 mg tablet RxNorm: 693286 1 Tablet(s) PO QAM 06/26/20 19 2019 Inactive Ventolin HFA 90 mcg/actuation aerosol inhaler RxNorm: 430397 2 Puff(s) INH QID 06/26/20 19 2018 Inactive Please do not fill early. Please do not auto refill. This refill negates all other refills of this medication Singulair 10 mg tablet RxNorm: 105160 1 Tablet(s) PO daily 06/26/20 19 2019 Inactive This refill negates all other refills of this medication cetirizine 10 mg tablet RxNorm: 9341627 1 Tablet(s) PO daily 06/26/20 19 2019 Inactive This refill negates all other refills of this medication. Please do not auto refill levothyroxine 50 mcg tablet RxNorm: 653188 1 Tablet(s) PO daily 06/26/202019 Inactive This refill negates all other refills of this medication diclofenac sodium 75 mg tablet,delayed release RxNorm: 012904 1 Tablet(s) PO BID 06/26/202019 Inactive This refill negates all other refills of this medication ranitidine 150 mg tablet RxNorm: 516351 1 Tablet(s) PO BID 06/26/20 19 2018 Inactive This refill negates all other refills of this medication Calcium 600-D3 Plus (mag-zinc) 600 mg calcium-800 unit-50 mg tablet RxNorm: 1 Tablet(s) PO daily take an additonal tablet for itching. 06/26/202018 Inactive This refill negates all other refills of this medication albuterol sulfate 2.5 mg/3 mL (0.083 %) solution for nebulization RxNorm: 147042 1 Vial INH QID 06/26/20 19 2018 Inactive 60/box. This refill negates all other refills of this medication. Please do not fill early. Please do not auto refill. lisinopril 2.5 mg tablet RxNorm: 712048 1 Tablet(s) PO daily 06/21/20 19 2019 Inactive gabapentin 300 mg capsule RxNorm: 896155 1 Capsule(s) PO TID 09/19/2019 Inactive atorvastatin 20 mg tablet RxNorm: 206784 1 Tablet(s) PO QHS 06/07/20 19 2018 Inactive This refill negates all other refills of this medication TRUEplus Lancets 30 gauge RxNorm: 1 Lancets Miscellaneous QAM 05/29/20 19 2018 Inactive 100/box gabapentin 300 mg capsule RxNorm: 829226 1 Capsule(s) PO TID 05/03/20 19 2018 Inactive Flnickolas Complete (iron) 18 mg iron chewable tablet RxNorm: 1 Tablet(s) PO daily 04/04/202021 Inactive This refill negates all other refills of this medication gabapentin 300 mg capsule RxNorm: 934767 1 Capsule(s) PO TID as needed 02/01/20 19 2018 Inactive True Metrix Glucose Test Strip RxNorm: 1 Test Strips Miscellaneous QAM 02/01/20 19 2018 Inactive 100/container Alcohol Prep Pads RxNorm: 080574 1 Patch TOP QAM 02/01/20 19 2018 Inactive TRUEplus Lancets 30 gauge RxNorm: 1 Lancets Miscellaneous QAM 02/01/20 19 2018 Inactive 100/box lisinopril 2.5 mg tablet RxNorm: 768184 1 Tablet(s) PO daily 12/28/19 19 2018 Inactive ranitidine 150 mg tablet RxNorm: 644075 1 Tablet(s) PO BID 10/21/192018 Inactive This refill negates all other refills of this medication albuterol sulfate 2.5 mg/3 mL (0.083 %) solution for nebulization RxNorm: 908597 1 Vial INH QID 10/21/192018 Inactive 60/box. [...] this medication gabapentin 300 mg capsule RxNorm: 721469 1 Capsule(s) PO TID as needed 10/21/19 19 2018 Inactive atorvastatin 20 mg tablet RxNorm: 270864 1 Tablet(s) PO QHS 10/21/19 19 2018 Inactive This refill negates all other refills of this medication trazodone 50 mg tablet RxNorm: 394307 1 Tablet(s) PO QHS 10/21/19 19 2018 Inactive This refill negates all other refills of this medication Ventolin HFA 90 mcg/actuation aerosol inhaler RxNorm: 415141 2 Puff(s) INH QID 10/21/192018 Inactive Please do not fill early. Please do not auto refill. This refill negates all other refills of this medication Calcium 600-D3 Plus 600 mg calcium-800 unit-50 mg tablet RxNorm: 1 Tablet(s) PO daily take an additonal tablet for itching. 10/21/19 19 2018 Inactive This refill negates all other refills of this medication Singulair 10 mg tablet RxNorm: 792303 1 Tablet(s) PO daily 10/21/192018 Inactive This refill negates all other refills of this medication buspirone 7.5 mg tablet RxNorm: 236331 1 Tablet(s) PO BID 10/21/192018 Inactive This refill negates all other refills of this medication diclofenac sodium 75 mg tablet,delayed release RxNorm: 520490 1 Tablet(s) PO BID 10/21/192018 Inactive This refill negates all other refills of this medication hydrochlorothiazide 12.5 mg tablet RxNorm: 830378 1 Tablet(s) PO QAM 10/21/19 19 2018 Inactive metoprolol succinate ER 50 mg tablet,extended release 24 hr RxNorm: 844488 1 Tablet(s) PO daily 10/21/19 19 2018 Inactive This refill negates all other refills of this medication levothyroxine 50 mcg tablet RxNorm: 610787 1 Tablet(s) PO daily 10/21/19 19 2018 Inactive This refill negates all other refills of this medication cetirizine 10 mg tablet RxNorm: 1790457 1 Tablet(s) PO daily 10/21/19 19 2018 Inactive This refill negates all other refills of this medication. Please do not auto refill Flintstones Complete (iron) 18 mg iron chewable tablet RxNorm: 1 Tablet(s) PO daily 10/21/19 19 2018 Inactive This refill negates all other refills of this medication buspirone 7.5 mg tablet RxNorm: 887618 1 Tablet(s) PO BID 10/12/19 19 2018 Inactive cetirizine 10 mg tablet RxNorm: 5446226 1 Tablet(s) PO daily 09/28/20 18 2018 Inactive Guaiasorb DM 10 mg-100 mg/5 mL oral liquid RxNorm: 152260 10 Milliliter(s) PO As needed every 4 hr 09/24/20 18 2018 Inactive Vicks Vaporub 4.7 %-1.2 %-2.6 % topical ointment RxNorm: 3851682 1 Application TOP TID 09/24/20 18 2018 Inactive levmetamfetamine 50 mg nasal inhaler RxNorm: 1 Unit(s) NASAL Q3-4H 09/24/20 18 2017 Inactive sertraline 50 mg tablet RxNorm: 240847 1 Tablet(s) PO daily 09/09/20 18 2018 Inactive Please note dose trazodone 50 mg tablet RxNorm: 977349 1 Tablet(s) PO QHS 09/06/20 18 2018 Inactive sertraline 50 mg tablet RxNorm: 926507 1 Tablet(s) PO daily 09/06/20 18 2017 Inactive amoxicillin 500 mg tablet RxNorm: 621747 1 Tablet(s) PO Q12H 08/31/20 18 2017 Inactive albuterol sulfate 2.5 mg/3 mL (0.083 %) solution for nebulization RxNorm: 394194 1 Vial INH QID 08/10/20 18 2018 Inactive 60/box. Please do not fill early. Please do not auto refill. Prozac 10 mg capsule RxNorm: 473256 1 Capsule(s) PO daily 08/09/20 18 2017 Inactive buspirone 7.5 mg tablet RxNorm: 822584 1 Tablet(s) PO BID 08/09/20 18 2018 Inactive gabapentin 300 mg capsule RxNorm: 473984 1 Capsule(s) PO TID as needed 08/01/20 18 2018 Inactive hydrochlorothiazide 12.5 mg tablet RxNorm: 898481 1 Tablet(s) PO QAM 08/01/20 18 2018 Inactive ranitidine 150 mg tablet RxNorm: 583612 1 Tablet(s) PO BID 08/01/20 18 2018 Inactive Macrobid 100 mg capsule RxNorm: 578325 1 Capsule(s) PO Q12H 06/21/20 18 2017 Inactive Singulair 10 mg tablet RxNorm: 567964 1 Tablet(s) PO daily 06/14/20 18 2018 Inactive Ventolin HFA 90 mcg/actuation aerosol inhaler RxNorm: 9158434 2 Puff(s) INH QID 06/14/20 18 2018 Inactive Singulair 10 mg tablet RxNorm: 924246 1 Tablet(s) PO daily 06/14/20 18 2017 Inactive buspirone 7.5 mg tablet RxNorm: 602965 1 Tablet(s) PO BID 06/14/20 18 2017 Inactive Prozac 10 mg capsule RxNorm: 405748 1 Capsule(s) PO daily 06/14/20 18 2017 Inactive Neilmed Pediatric Sinus Rinse Refill packet RxNorm: 1 Unit Dose NASAL PRN 05/31/20 18 2021 Inactive diclofenac sodium 75 mg tablet,delayed release RxNorm: 067808 1 Tablet(s) PO BID 05/31/20 18 2017 Inactive lisinopril 2.5 mg tablet RxNorm: 591204 1 Tablet(s) PO daily 05/31/20 18 2017 Inactive metoprolol succinate ER 50 mg tablet,extended release 24 hr RxNorm: 857725 1 Tablet(s) PO daily 05/31/20 18 2017 Inactive levothyroxine 50 mcg tablet RxNorm: 856298 1 Tablet(s) PO daily 05/31/20 18 2017 Inactive TRUEplus Lancets 30 gauge RxNorm: 1 Lancets Miscellaneous QAM 05/31/20 18 2017 Inactive 100/box Ventolin HFA 90 mcg/actuation aerosol inhaler RxNorm: 012024 2 Puff(s) INH QID 05/31/20 18 2017 Inactive Aleve 220 mg capsule RxNorm: 4246907 1 Capsule(s) PO BID 05/31/20 18 2018 Inactive ranitidine 150 mg tablet RxNorm: 243279 1 Tablet(s) PO BID 05/31/20 18 2017 Inactive gabapentin 300 mg capsule RxNorm: 778238 1 Capsule(s) PO TID as needed 05/31/20 18 2017 Inactive atorvastatin 20 mg tablet RxNorm: 818769 1 Tablet(s) PO QHS 05/31/20 18 2017 Inactive True Metrix Glucose Test Strip RxNorm: 1 [facility] 05/31/20 18 2017 Inactive 50/container Calcium 600-D3 Plus 600 mg calcium-800 unit-50 mg tablet RxNorm: 1 Tablet(s) PO daily take an additonal tablet for itching. 05/31/20 18 2017 Inactive hydrochlorothiazide 12.5 mg tablet RxNorm: 115262 1 Tablet(s) PO QAM 05/31/20 18 2017 Inactive Flintstones Complete (iron) 18 mg iron chewable tablet RxNorm: 1 Tablet(s) PO daily 05/31/20 18 2017 Inactive d-mannose oral powder RxNorm: PO 18 2021 Inactive True Metrix Glucose Meter RxNorm: miscellaneous 08/17/20 19 2018 Inactive sertraline 50 mg tablet RxNorm: 678727 1 Tablet(s) PO daily 11/28/19 20 2019 Inactive loperamide 2 mg tablet RxNorm: 935734 oral 09/29/20 19 2018 Inactive Symbicort 160 mcg-4.5 mcg/actuation HFA aerosol inhaler RxNorm: 1924455 2 Puff(s) INH BID 08/17/20 19 2018 Inactive Medication Administered No Medication Administered data Procedures Procedure Codes Date Electrocardiogram CPT-4: 26239 05/14/2020 Tobacco Assessment/Screening CPT-4: TCA Fall Risk Assessment SNOMED CT: 40698868 4 CPT-4: DFRA01/01/2020Functional AssessmentCPT-4: DFA01/01/2020[place] Fany AssessmentCPT-4: DSWA11/28/2019Patient Health QuestionnaireCPT-4: DPHQ11/28/2019 [place] Fany AssessmentCPT-4: DSWA10/17/2019HypertensionCPT-4: HTN10/17/[address]: 271183250 CPT-4: DFRA09/19/2019Functional AssessmentCPT-4: DFA111/20/2018Urinalysis, dip stickCPT-4: 9539294Tobacco Assessment/ScreeningCPT-4: TCA05/24/2019 Patient Health QuestionnaireCPT-4: DPHQ05/24/2019AHA/REBECCA Classification AssessmentCPT-4: DAHA04/25/2019Controlled Substance ReportCPT-4: CTRSU04/25/2019 Urinalysis, dip stickCPT-4: 058794303/28/2019Urinalysis, dip stickCPT-4: 29430 03/28/20192017X7C-JqauhkistkbjrraNVL-0: 19799BrzrqalR1T-PuyfrbxdiqvwplwCUM-7: 37628 IpqbymrH4O-CtxctqlxbxrftmnTWZ-7: 69326OsqucptZ5C-HzuyrpysrjoiwmlSVN-0: [address]: 525138717 CPT-4: K42Pqqicby Reason For Visit No Reason For Visit data Plan of Care Planned Activity Notes Codes Status Date Referral: Pending Gynecology Referral Informatio n Referral ProcessedReferral: Pending Pulmonology Referral InformationReferralProcessed Referral: Pending Psychiatry Referral InformationReferralInitiatedReferral: Pending Respiratory Services Referral InformationReferralInitiatedReferral: Pending Ophthalmology Referral InformationReferralInitiatedReferral: [facility] WPtel: [address] [place] USWriter placed a call out to the patient to notify her that it has been recommended that she be seenby a urologist. Patient agreed to be seen, does not have a provider of choice and no transportationissues. Shovel Operator faxed referral and clinical notes to [facility] in [place], [place] near the patient's home. Patient to [...] seen and prefers a provider in the [place] or [place] area. Shovel Operator placed a call out to everyone listed in the area and the only location that was able to accept the patient's insurance was [address] [address] and spoke with Maylin. Maylin asked that the patient's referral, face sheet and visit notes be faxed to . Shovel Operator faxed over requested documents. Patient appointment confirmation letter generated and mailed to her home address. Patient to call to schedule an appointment.ProcessedReferral: [facility] WPtel: [address] [place] USPatient notified that it has been advised that she be seen by Neurology. Patient agreed to be seen and prefers to be seen by a provider in the [place], [place] area. Patient denies any concerns with transportation, and prefers to schedule her own appointment. Shovel Operator placed a [facility] and spoke with Neeraj Mcfarland: [...]
--- OUTSIDE RECORDS SUMMARY | 2023-12-07 02:12 | XMS_ITS | CCD ---
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 Die Cutter Name Role Phone Palomo KING, Anna Primary Care Provider Unav ailable Unavailable Chronic Care Management Unavaila ble Summary Purpose DataExchange Insurance Providers Payer name Policy type / Coverage type Covered republican ID Effective Begin Date Effective End Date SUKI MAYO [id number] Unknown Unknown Family history Mother Diagnosis Age [...] 05/31/2018 Education level Unknown Some High School 10th05/31/20187478ToazdwecwuQgqksanAielizdqlw90/29/2018Tobacco historySNOMED CT: 370748307Zgd never smoked or chewed yaelnar1905/31/2018Alcohol historySNOMED CT: 285758733Sswhc drinks ijmedlh0405/31/2018Has the patient ever used illegal drugs? UnknownHas never used illegal drugs05/31/2018DNR Order/ Advanced Directive UnknownFull Code05/31/2018 Allergies, Adverse Reactions, Alerts Substance Reaction Codes Entered Date Inactivated Date Status *No known food allergies Cwpqomq0909/06/2018No Inactive DateActiveMethylprednisolonehivesRxNorm: 6902 09/06/2018No Inactive DateActive Problems Condition Codes Effective Dates Condition St atus (Z12.11-V76.51) Encounter fo r screening for malignant neoplasm of colon ICD-10: Z12.11 ICD-9: V76.5107/Active(Z12.31-V76.12) Encounter for screening mammogram for malignant neoplasm of breastICD-10: Z12.31 ICD-9: V76.1207/ActiveChronic kidney disease, unspecifiedICD-10: N18.9 ICD-9: 585.909/ActiveType 2 diabetes mellitus with peripheral neuropathy ICD-10: E11.42 ICD-9: 250.6002/ActiveHypertensive heart disease with heart failureICD- 10: I11.0 ICD-9: 402.9107/ActiveAdult BMI 50.0-59.9 kg/sq mICD-10: Z68.43 ICD-9: V85.4308/ActiveEssential (primary) hypertensionICD-10: I10 ICD-9: 401.901ActiveAbrasion of toeICD-10: [...] ICD-9: 356.908ActivePatient Not SeenICD-10: UXZ.01 ICD-9: XZ0.107ActiveOther buttermaker continuous churn (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ICD-10: Z79.899 ICD-9: V58.6907ActiveChest pain, [...] Fill Instructions metformin 500 mg tablet RxNorm: 031058 1 Tablet(s) Oral every day 05/12/20 20 2019 Inactive True Metrix Glucose Test Strip RxNorm: 1 Test Strips Miscellaneous two times a day as needed 04/17/20 No Stop Date Active metformin 500 mg tablet RxNorm: 169452 1 Tablet(s) Oral every day 04/17/20 20 2019 Inactive diclofenac sodium 75 mg tablet,delayed release RxNorm: 726702 1 Tablet(s) PO BID 04/14/20 20 2021 Inactive This refill negates all other refills of this medication Sudafed 12 Hour 120 mg tablet,extended release RxNorm: 1692664 TAKE 1 TABLET BY MOUTH EVERY 12 HOURS NEEDED 03/14/20 20 2019 Inactive True Metrix Glucose Test Strip RxNorm: 1 Test Strips Miscellaneous every morning 03/13/20 20 2019 Inactive 100/container loperamide 2 mg tablet RxNorm: 611616 1 Tablet(s) Oral as needed take one tablet after each loose stool, maximum of 8 tablets in 24 hours 02/22/20 20 2019 Inactive True Metrix Glucose Test Strip RxNorm: 1 Test Strips Miscellaneous QAM 02/22/20 20 2019 Inactive 100/container cetirizine 10 mg tablet RxNorm: 2320591 1 Tablet(s) PO daily 01/17/20 20 2019 Inactive levothyroxine 50 mcg tablet RxNorm: 786391 1 Tablet(s) PO daily 01/17/20 20 2020 Inactive gabapentin 300 mg capsule RxNorm: 240014 1 Capsule(s) PO TID 01/17/20 20 2019 Inactive loperamide 2 mg tablet RxNorm: 428507 1 Tablet(s) Oral as needed take one tablet after each loose stool, maximum of 8 tablets in 24 hours 01/17/20 20 2019 Inactive quetiapine 100 mg tablet RxNorm: 263466 1 Tablet(s) Oral every night at bedtime 01/17/20 20 2019 Inactive lisinopril 2.5 mg tablet RxNorm: 128722 1 Tablet(s) PO daily 01/15/20 20 2020 Inactive Singulair 10 mg tablet RxNorm: 096837 1 Tablet(s) PO daily 01/15/20 20 2020 Inactive levothyroxine 50 mcg tablet RxNorm: 799232 1 Tablet(s) PO daily 01/15/20 20 2019 Inactive gabapentin 300 mg capsule RxNorm: 393242 1 Capsule(s) PO TID 01/15/20 20 2019 Inactive cetirizine 10 mg tablet RxNorm: 5606900 1 Tablet(s) PO daily 01/15/20 20 2019 Inactive gentamicin 0.3 % eye drops RxNorm: 442572 1 Drop(s) ophthalmic (eye) four times a day 12/29/19 20 2019 Inactive gentamicin 0.3 % eye drops RxNorm: 459651 1 Drop(s) ophthalmic (eye) four times a day 12/29/19 20 2019 Inactive gentamicin 0.3 % eye drops RxNorm: 001606 1 Drop(s) ophthalmic (eye) four times a day 12/29/19 20 2019 Inactive hydrochlorothiazide 25 mg tablet RxNorm: 352709 1 Tablet(s) Oral every day 12/21/19 20 2019 Inactive Sudafed 12 Hour 120 mg tablet,extended release RxNorm: 5067599 TAKE (1) TABLET BY MOUTH EVERY 12 HOURS NEEDED 12/21/19 20 2019 Inactive loperamide 2 mg tablet RxNorm: 932622 1 Tablet(s) Oral as needed take one tablet after each loose stool, maximum of 8 tablets in 24 hours 12/11/19 20 2019 Inactive loperamide 2 mg tablet RxNorm: 554662 1 Tablet(s) Oral as needed take one tablet after each loose stool, maximum of 8 tablets in 24 hours 12/11/19 20 2019 Inactive atorvastatin 40 mg tablet RxNorm: 112407 1 Tablet(s) Oral every day 11/29/19 20 2020 Inactive sertraline 100 mg tablet RxNorm: 268288 1 Tablet(s) Oral 11/28/19 20 2019 Inactive quetiapine 100 mg tablet RxNorm: 154868 1 Tablet(s) Oral every night at bedtime 11/28/19 20 2019 Inactive omeprazole 20 mg capsule,delayed release RxNorm: 971327 1 Capsule(s) Oral every day 11/20/19 20 2019 Inactive amoxicillin 250 mg capsule RxNorm: 728982 1 Capsule(s) Oral three times a day 11/07/19 20 2019 Inactive multivitamin with iron-mineral tablet RxNorm: 1 Tablet(s) Oral every day 10/29/19 20 2021 Inactive cetirizine 10 mg tablet RxNorm: 4857964 1 Tablet(s) PO daily 10/20/19 20 2019 Inactive This refill negates all other refills of this medication. Please do not auto refill Singulair 10 mg tablet RxNorm: 719558 1 Tablet(s) PO daily 10/20/19 20 2019 Inactive This refill negates all other refills of this medication gabapentin 300 mg capsule RxNorm: 476658 1 Capsule(s) PO TID 10/20/192019 Inactive lisinopril 2.5 mg tablet RxNorm: 380317 1 Tablet(s) PO daily 10/20/19 20 2019 Inactive levothyroxine 50 mcg tablet RxNorm: 764110 1 Tablet(s) PO daily 10/20/19 20 2019 Inactive This refill negates all other refills of this medication fenugreek seed extract 500 mg capsule RxNorm: 1 Capsule(s) Oral three times a day 10/17/19 20 2021 Inactive hydrochlorothiazide 25 mg tablet RxNorm: 292596 1 Tablet(s) Oral every day 10/17/19 20 2019 Inactive Alcohol Prep Pads RxNorm: 315924 1 Patch TOP QAM 10/16/19 20 2020 Inactive loperamide 2 mg tablet RxNorm: 159780 1 Tablet(s) Oral as needed take one [...] 2019 Inactive hydrochlorothiazide 25 mg tablet RxNorm: 200815 1 Tablet(s) Oral every day 09/19/202019 Inactive Sudafed 12 Hour 120 mg tablet,extended release RxNorm: 7395927 1 Tablet(s) Oral every 12 hours as needed 09/11/20 19 2018 Inactive omeprazole 20 mg capsule,delayed release RxNorm: 728209 1 Capsule(s) Oral every day 09/07/20 19 2019 Inactive Sudafed 12 Hour 120 mg tablet,extended release RxNorm: 6987771 1 Tablet(s) Oral every 12 hours as needed 09/04/20 19 2018 Inactive pantoprazole 40 mg tablet,delayed release RxNorm: 986877 1 Tablet(s) Oral every day 08/24/20 19 2018 Inactive discontinue any other H2Blkr. and PPI albuterol sulfate 2.5 mg/3 mL (0.083 %) solution for nebulization RxNorm: 650473 1 Vial Inhalation every four hours as needed as needed for dyspnea 08/17/20 19 2019 Inactive 60/box. This refill negates all other refills of this medication. Please do not fill early. Please do not auto refill. Symbicort 160 mcg-4.5 mcg/actuation HFA aerosol inhaler RxNorm: 0065050 2 Puff(s) INH BID 08/17/20 19 No Stop Date Active Alcohol Prep Pads RxNorm: 523834 1 Patch TOP QAM 08/17/20 19 2019 Inactive Ventolin HFA 90 mcg/actuation aerosol inhaler RxNorm: 523030 2 Puff(s) INH QID 08/09/20 19 2019 Inactive Please do not fill early. Please do not auto refill. This refill negates all other refills of this medication True Metrix Glucose Test Strip RxNorm: 1 Test Strips Miscellaneous QAM 08/09/20 19 2019 Inactive 100/container atorvastatin 40 mg tablet RxNorm: 803948 1 Tablet(s) Oral every day 07/04/20 19 2019 Inactive levmetamfetamine 50 mg nasal inhaler RxNorm: 1 Unit(s) NASAL Q3-4H Do not use more than every 3 hours or 8 times/24hours 06/26/20 19 2021 Inactive Please do not auto refill. This refill negates all other refills of this medication buspirone 7.5 mg tablet RxNorm: 585444 1 Tablet(s) PO BID 06/26/20 19 2020 Inactive This refill negates all other refills of this medication hydrochlorothiazide 12.5 mg tablet RxNorm: 543369 1 Tablet(s) PO QAM 06/26/20 19 2019 Inactive Ventolin HFA 90 mcg/actuation aerosol inhaler RxNorm: 409964 2 Puff(s) INH QID 06/26/20 19 2018 Inactive Please do not fill early. Please do not auto refill. This refill negates all other refills of this medication Singulair 10 mg tablet RxNorm: 306240 1 Tablet(s) PO daily 06/26/20 19 2019 Inactive This refill negates all other refills of this medication cetirizine 10 mg tablet RxNorm: 9144443 1 Tablet(s) PO daily 06/26/20 19 2019 Inactive This refill negates all other refills of this medication. Please do not auto refill levothyroxine 50 mcg tablet RxNorm: 594025 1 Tablet(s) PO daily 06/26/20 19 2019 Inactive This refill negates all other refills of this medication diclofenac sodium 75 mg tablet,delayed release RxNorm: 274065 1 Tablet(s) PO BID 06/26/20 19 2019 Inactive This refill negates all other refills of this medication ranitidine 150 mg tablet RxNorm: 902962 1 Tablet(s) PO BID 06/26/20 19 2018 Inactive This refill negates all other refills of this medication Calcium 600-D3 Plus (mag-zinc) 600 mg calcium-800 unit-50 mg tablet RxNorm: 1 Tablet(s) PO daily take an additonal tablet for itching. 06/26/20 19 2018 Inactive This refill negates all other refills of this medication albuterol sulfate 2.5 mg/3 mL (0.083 %) solution for nebulization RxNorm: 416450 1 Vial INH QID 06/26/20 19 2018 Inactive 60/box. This refill negates all other refills of this medication. Please do not fill early. Please do not auto refill. lisinopril 2.5 mg tablet RxNorm: 561781 1 Tablet(s) PO daily 06/21/20 19 2019 Inactive gabapentin 300 mg capsule RxNorm: 038209 1 Capsule(s) PO TID 06/21/20 19 2019 Inactive atorvastatin 20 mg tablet RxNorm: 955311 1 Tablet(s) PO QHS 06/07/202018 Inactive This refill negates all other refills of this medication TRUEplus Lancets 30 gauge RxNorm: 1 Lancets Miscellaneous QAM 05/29/20 19 2018 Inactive 100/box gabapentin 300 mg capsule RxNorm: 738910 1 Capsule(s) PO TID 05/03/20 19 2018 Inactive Flintstones Complete (iron) 18 mg iron chewable tablet RxNorm: 1 Tablet(s) PO daily 04/04/20 19 2021 Inactive This refill negates all other refills of this medication gabapentin 300 mg capsule RxNorm: 525831 1 Capsule(s) PO TID as needed 02/01/20 19 2018 Inactive True Metrix Glucose Test Strip RxNorm: 1 Test Strips Miscellaneous QAM 02/01/20 19 2018 Inactive 100/container Alcohol Prep Pads RxNorm: 297666 1 Patch TOP QAM 02/01/20 19 2018 Inactive TRUEplus Lancets 30 gauge RxNorm: 1 Lancets Miscellaneous QAM 02/01/20 19 2018 Inactive 100/box lisinopril 2.5 mg tablet RxNorm: 762919 1 Tablet(s) PO daily 12/28/19 19 2018 Inactive ranitidine 150 mg tablet RxNorm: 183201 1 Tablet(s) PO BID 10/21/192018 Inactive This refill negates all other refills of this medication albuterol sulfate 2.5 mg/3 mL (0.083 %) solution for nebulization RxNorm: 602279 1 Vial INH QID 10/21/192018 Inactive 60/box. [...] this medication gabapentin 300 mg capsule RxNorm: 789120 1 Capsule(s) PO TID as needed 10/21/192018 Inactive atorvastatin 20 mg tablet RxNorm: 358841 1 Tablet(s) PO QHS 10/21/19 19 2018 Inactive This refill negates all other refills of this medication trazodone 50 mg tablet RxNorm: 512021 1 Tablet(s) PO QHS 10/21/19 19 2018 Inactive This refill negates all other refills of this medication Ventolin HFA 90 mcg/actuation aerosol inhaler RxNorm: 786880 2 Puff(s) INH QID 10/21/192018 Inactive Please do not fill early. Please do not auto refill. This refill negates all other refills of this medication Calcium 600-D3 Plus 600 mg calcium-800 unit-50 mg tablet RxNorm: 1 Tablet(s) PO daily take an additonal tablet for itching. 10/21/19 19 2018 Inactive This refill negates all other refills of this medication Singulair 10 mg tablet RxNorm: 085317 1 Tablet(s) PO daily 10/21/192018 Inactive This refill negates all other refills of this medication buspirone 7.5 mg tablet RxNorm: 415833 1 Tablet(s) PO BID 10/21/192018 Inactive This refill negates all other refills of this medication diclofenac sodium 75 mg tablet,delayed release RxNorm: 528669 1 Tablet(s) PO BID 10/21/19 19 2018 Inactive This refill negates all other refills of this medication hydrochlorothiazide 12.5 mg tablet RxNorm: 005156 1 Tablet(s) PO QAM 10/21/19 19 2018 Inactive metoprolol succinate ER 50 mg tablet,extended release 24 hr RxNorm: 428326 1 Tablet(s) PO daily 10/21/192018 Inactive This refill negates all other refills of this medication levothyroxine 50 mcg tablet RxNorm: 122677 1 Tablet(s) PO daily 10/21/192018 Inactive This refill negates all other refills of this medication cetirizine 10 mg tablet RxNorm: 9361624 1 Tablet(s) PO daily 10/21/192018 Inactive This refill negates all other refills of this medication. Please do not auto refill Flintstones Complete (iron) 18 mg iron chewable tablet RxNorm: 1 Tablet(s) PO daily 10/21/192018 Inactive This refill negates all other refills of this medication buspirone 7.5 mg tablet RxNorm: 825620 1 Tablet(s) PO BID 10/12/19 19 2018 Inactive cetirizine 10 mg tablet RxNorm: 4847253 1 Tablet(s) PO daily 09/28/20 18 2018 Inactive Guaiasorb DM 10 mg-100 mg/5 mL oral liquid RxNorm: 621373 10 Milliliter(s) PO As needed every 4 hr 09/24/20 18 2018 Inactive Vicks Vaporub 4.7 %-1.2 %-2.6 % topical ointment RxNorm: 9050166 1 Application TOP TID 09/24/20 18 2018 Inactive levmetamfetamine 50 mg nasal inhaler RxNorm: 1 Unit(s) NASAL Q3-4H 09/24/20 18 2017 Inactive sertraline 50 mg tablet RxNorm: 198225 1 Tablet(s) PO daily 09/09/20 18 2018 Inactive Please note dose trazodone 50 mg tablet RxNorm: 135753 1 Tablet(s) PO QHS 09/06/20 18 2018 Inactive sertraline 50 mg tablet RxNorm: 204507 1 Tablet(s) PO daily 09/06/20 18 2017 Inactive amoxicillin 500 mg tablet RxNorm: 882069 1 Tablet(s) PO Q12H 08/31/20 18 2017 Inactive albuterol sulfate 2.5 mg/3 mL (0.083 %) solution for nebulization RxNorm: 780289 1 Vial INH QID 08/10/20 18 2018 Inactive 60/box. Please do not fill early. Please do not auto refill. Prozac 10 mg capsule RxNorm: 255374 1 Capsule(s) PO daily 08/09/20 18 2017 Inactive buspirone 7.5 mg tablet RxNorm: 174807 1 Tablet(s) PO BID 08/09/20 18 2018 Inactive gabapentin 300 mg capsule RxNorm: 712668 1 Capsule(s) PO TID as needed 08/01/20 18 2018 Inactive hydrochlorothiazide 12.5 mg tablet RxNorm: 535236 1 Tablet(s) PO QAM 08/01/20 18 2018 Inactive ranitidine 150 mg tablet RxNorm: 503875 1 Tablet(s) PO BID 08/01/20 2018 Inactive Macrobid 100 mg capsule RxNorm: 033131 1 Capsule(s) PO Q12H 06/21/20 18 2017 Inactive Singulair 10 mg tablet RxNorm: 557856 1 Tablet(s) PO daily 06/14/20 18 2018 Inactive Ventolin HFA 90 mcg/actuation aerosol inhaler RxNorm: 8072019 2 Puff(s) INH QID 06/14/20 18 2018 Inactive Singulair 10 mg tablet RxNorm: 710091 1 Tablet(s) PO daily 06/14/20 18 2017 Inactive buspirone 7.5 mg tablet RxNorm: 308071 1 Tablet(s) PO BID 06/14/20 18 2017 Inactive Prozac 10 mg capsule RxNorm: 662920 1 Capsule(s) PO daily 06/14/20 18 2017 Inactive Neilmed Pediatric Sinus Rinse Refill packet RxNorm: 1 Unit Dose NASAL PRN 05/31/20 18 2021 Inactive diclofenac sodium 75 mg tablet,delayed release RxNorm: 222349 1 Tablet(s) PO BID 05/31/20 18 2017 Inactive lisinopril 2.5 mg tablet RxNorm: 909716 1 Tablet(s) PO daily 05/31/20 18 2017 Inactive metoprolol succinate ER 50 mg tablet,extended release 24 hr RxNorm: 712495 1 Tablet(s) PO daily 05/31/20 18 2017 Inactive levothyroxine 50 mcg tablet RxNorm: 023282 1 Tablet(s) PO daily 05/31/20 18 2017 Inactive TRUEplus Lancets 30 gauge RxNorm: 1 Lancets Miscellaneous QAM 05/31/20 18 2017 Inactive 100/box Ventolin HFA 90 mcg/actuation aerosol inhaler RxNorm: 463847 2 Puff(s) INH QID 05/31/20 18 2017 Inactive Aleve 220 mg capsule RxNorm: 9656136 1 Capsule(s) PO BID 05/31/20 18 2018 Inactive ranitidine 150 mg tablet RxNorm: 271994 1 Tablet(s) PO BID 05/31/20 18 2017 Inactive gabapentin 300 mg capsule RxNorm: 353116 1 Capsule(s) PO TID as needed 05/31/20 18 2017 Inactive atorvastatin 20 mg tablet RxNorm: 915166 1 Tablet(s) PO QHS 05/31/20 18 2017 Inactive True Metrix Glucose Test Strip RxNorm: 1 [facility] 05/31/20 18 2017 Inactive 50/container Calcium 600-D3 Plus 600 mg calcium-800 unit-50 mg tablet RxNorm: 1 Tablet(s) PO daily take an additonal tablet for itching. 05/31/20 18 2017 Inactive hydrochlorothiazide 12.5 mg tablet RxNorm: 437854 1 Tablet(s) PO QAM 05/31/20 18 2017 Inactive Flintstones Complete (iron) 18 mg iron chewable tablet RxNorm: 1 Tablet(s) PO daily 05/31/20 18 2017 Inactive d-mannose oral powder RxNorm: PO 18 2021 Inactive True Metrix Glucose Meter RxNorm: miscellaneous 08/17/20 19 2018 Inactive sertraline 50 mg tablet RxNorm: 498011 1 Tablet(s) PO daily 11/28/19 20 2019 Inactive loperamide 2 mg tablet RxNorm: 786862 oral 09/29/20 19 2018 Inactive Symbicort 160 mcg-4.5 mcg/actuation HFA aerosol inhaler RxNorm: 0494298 2 Puff(s) INH BID 08/17/20 19 2018 Inactive Medication Administered No Medication Administered data Procedures Procedure Codes Date Tobacco Assessment/Screening CPT-4: [facility] CPT-4: DFRA01/01/2020Functional AssessmentCPT-4: DFA01/01/2020[place] Fany AssessmentCPT-4: DSWA11/28/2019Patient Health QuestionnaireCPT-4: DPHQ11/28/2019 [place] Fany AssessmentCPT-4: DSWA10/17/2019HypertensionCPT-4: HTN10/17/[address]: 580735435 CPT-4: DFRA09/19/2019Functional AssessmentCPT-4: DFA111/20/2018Urinalysis, dip stickCPT-4: 4443690Tobacco Assessment/ScreeningCPT-4: TCA05/24/2019 Patient Health QuestionnaireCPT-4: DPHQ05/24/2019AHA/REBECCA Classification AssessmentCPT-4: DAHA04/25/2019Controlled Substance ReportCPT-4: CTRSU04/25/2019 Urinalysis, dip stickCPT-4: 658210803/28/2019Urinalysis, dip stickCPT-4: 61168 03/28/20198013E4G-AuprabvjzxakxbdOUC-3: 88588UstitutB5Z-KpcerngjkxvzekgHIZ-7: 33686 HftsclsE9H-VzhagtwrejpwwqqQTF-5: 99507VsadzrlWsvizfuhul ReferralSNOMED CT: 153034874 CPT-4: Z07Otvualy Reason For Visit No Reason For Visit data Plan of Care Planned Activity Notes Codes Status Date Referral: Pending Gynecology Referral Informatio n Referral ProcessedReferral: Pending Pulmonology Referral InformationReferralProcessed Referral: Pending Psychiatry Referral InformationReferralInitiatedReferral: Pending Respiratory Services Referral InformationReferralInitiatedReferral: Pending Ophthalmology Referral InformationReferralInitiatedReferral: [facility] WPtel: [address] [place], [place] [id number] USWriter placed a call out to the patient to notify her that it has been recommended that she be seenby a urologist. Patient agreed to be seen, does not have a provider of choice and no transportationissues. Production Supervisor Off Shift faxed referral and clinical notes to [facility] in [place], [place] near the patient's home. Patient to [...] seen and prefers a provider in the [place] or [place] area. Production Supervisor Off Shift placed a call out to everyone listed in the area and the only location that was able to accept the patient's insurance was [place] [address] [place] [address] and spoke with Maylin. Maylin asked that the patient's referral, face sheet and visit notes be faxed to . Production Supervisor Off Shift faxed over requested documents. Patient appointment confirmation letter generated and mailed to her home address. Patient to call to schedule an appointment.ProcessedReferral: [facility] WPtel: [address] [place] [address] [place], [place] [id number] USPatient notified that it has been advised that she be seen by Neurology. Patient agreed to be seen and prefers to be seen by a provider in the [place], [place] area. Patient denies any concerns with transportation, and prefers to schedule her own appointment. Production Supervisor Off Shift placed a call out to [facility] and spoke with Neeraj P: [...]
--- OUTSIDE RECORDS SUMMARY | 2023-12-07 02:12 | XMS_ITS | CCD ---
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 Booking Clerk Name Role Phone Palomo KING, Anna Primary Care Provider Unav ailable Unavailable Chronic Care Management Unavaila ble Summary Purpose DataExchange Insurance Providers Payer name Policy type / Coverage type Covered alliance party ID Effective Begin Date Effective End Date [facility] [facility] [id number] Unknown Unknown Family history Mother Diagnosis Age [...] 05/31/2018 Education level Unknown Some High School 10th05/31/20189232GauhnztoezSekhutuGjecqnfdok54/29/2018Tobacco historySNOMED CT: 376951938Cgi never smoked or chewed hyrykaj8405/31/2018Alcohol historySNOMED CT: 399306874Agyzi drinks xqkpkns1805/31/2018Has the patient ever used illegal drugs? UnknownHas never used illegal drugs05/31/2018DNR Order/ Advanced Directive UnknownFull Code05/31/2018 Allergies, Adverse Reactions, Alerts Substance Reaction Codes Entered Date Inactivated Date Status *No known food allergies Gayaxhz3109/06/2018No Inactive DateActiveMethylprednisolonehivesRxNorm: 6902 09/06/2018No Inactive DateActive Problems [...] Fill Instructions loperamide 2 mg tablet RxNorm: 870810 1 Tablet(s) Oral as needed take one tablet after each loose stool, maximum of 8 tablets in 24 hours 06/24/20 20 2021 Inactive Sudafed 12 Hour 120 mg tablet,extended release RxNorm: 5185625 TAKE 1 TABLET BY MOUTH EVERY 12 HOURS NEEDED 06/11/20 20 2019 Inactive hydrochlorothiazide 25 mg tablet RxNorm: 508848 TAKE (1) TABLET BY MOUTH EVERY DAY 06/11/20 20 2019 Inactive omeprazole 20 mg capsule,delayed release RxNorm: 269929 TAKE 1 CAPSULE BY MOUTH EVERY DAY 05/14/20 20 2020 Inactive metformin 500 mg tablet RxNorm: 317663 1 Tablet(s) Oral every day 05/12/20 20 2019 Inactive True Metrix Glucose Test Strip RxNorm: 1 Test Strips Miscellaneous two times a day as needed 04/17/20 No Stop Date Active metformin 500 mg tablet RxNorm: 005824 1 Tablet(s) Oral every day 04/17/20 20 2019 Inactive diclofenac sodium 75 mg tablet,delayed release RxNorm: 264920 1 Tablet(s) PO BID 04/14/20 20 2021 Inactive This refill negates all other refills of this medication Sudafed 12 Hour 120 mg tablet,extended release RxNorm: 5761819 TAKE 1 TABLET BY MOUTH EVERY 12 HOURS NEEDED 03/14/20 20 2019 Inactive True Metrix Glucose Test Strip RxNorm: 1 Test Strips Miscellaneous every morning 03/13/20 20 2019 Inactive 100/container True Metrix Glucose Test Strip RxNorm: 1 Test Strips Miscellaneous QAM 02/22/20 20 2019 Inactive 100/container loperamide 2 mg tablet RxNorm: 009888 1 Tablet(s) Oral as needed take one tablet after each loose stool, maximum of 8 tablets in 24 hours 02/22/20 20 2019 Inactive cetirizine 10 mg tablet RxNorm: 4802311 1 Tablet(s) PO daily 01/17/20 20 2019 Inactive levothyroxine 50 mcg tablet RxNorm: 059043 1 Tablet(s) PO daily 01/17/20 20 2020 Inactive gabapentin 300 mg capsule RxNorm: 788275 1 Capsule(s) PO TID 01/17/20 20 2019 Inactive loperamide 2 mg tablet RxNorm: 210168 1 Tablet(s) Oral as needed take one tablet after each loose stool, maximum of 8 tablets in 24 hours 01/17/20 20 2019 Inactive quetiapine 100 mg tablet RxNorm: 864207 1 Tablet(s) Oral every night at bedtime 01/17/20 20 2019 Inactive lisinopril 2.5 mg tablet RxNorm: 789699 1 Tablet(s) PO daily 01/15/20 20 2020 Inactive Singulair 10 mg tablet RxNorm: 964823 1 Tablet(s) PO daily 01/15/20 20 2020 Inactive levothyroxine 50 mcg tablet RxNorm: 590343 1 Tablet(s) PO daily 01/15/20 20 2019 Inactive gabapentin 300 mg capsule RxNorm: 740932 1 Capsule(s) PO TID 01/15/20 20 2019 Inactive cetirizine 10 mg tablet RxNorm: 1974021 1 Tablet(s) PO daily 01/15/20 20 2019 Inactive gentamicin 0.3 % eye drops RxNorm: 578145 1 Drop(s) ophthalmic (eye) four times a day 12/29/19 20 2019 Inactive gentamicin 0.3 % eye drops RxNorm: 736736 1 Drop(s) ophthalmic (eye) four times a day 12/29/19 20 2019 Inactive gentamicin 0.3 % eye drops RxNorm: 367084 1 Drop(s) ophthalmic (eye) four times a day 12/29/19 20 2019 Inactive hydrochlorothiazide 25 mg tablet RxNorm: 976922 1 Tablet(s) Oral every day 12/21/19 20 2019 Inactive Sudafed 12 Hour 120 mg tablet,extended release RxNorm: 2560746 TAKE (1) TABLET BY MOUTH EVERY 12 HOURS NEEDED 12/21/19 20 2019 Inactive loperamide 2 mg tablet RxNorm: 745738 1 Tablet(s) Oral as needed take one tablet after each loose stool, maximum of 8 tablets in 24 hours 12/11/19 20 2019 Inactive loperamide 2 mg tablet RxNorm: 088141 1 Tablet(s) Oral as needed take one tablet after each loose stool, maximum of 8 tablets in 24 hours 12/11/19 20 2019 Inactive atorvastatin 40 mg tablet RxNorm: 942861 1 Tablet(s) Oral every day 11/29/19 20 2020 Inactive quetiapine 100 mg tablet RxNorm: 864939 1 Tablet(s) Oral every night at bedtime 11/28/19 20 2019 Inactive sertraline 100 mg tablet RxNorm: 055078 1 Tablet(s) Oral 11/28/19 20 2019 Inactive omeprazole 20 mg capsule,delayed release RxNorm: 403229 1 Capsule(s) Oral every day 11/20/19 20 2019 Inactive amoxicillin 250 mg capsule RxNorm: 676429 1 Capsule(s) Oral three times a day 11/07/19 20 2019 Inactive multivitamin with iron-mineral tablet RxNorm: 1 Tablet(s) Oral every day 10/29/19 20 2021 Inactive cetirizine 10 mg tablet RxNorm: 1319922 1 Tablet(s) PO daily 10/20/19 20 2019 Inactive This refill negates all other refills of this medication. Please do not auto refill Singulair 10 mg tablet RxNorm: 925622 1 Tablet(s) PO daily 10/20/19 20 2019 Inactive This refill negates all other refills of this medication gabapentin 300 mg capsule RxNorm: 179525 1 Capsule(s) PO TID 10/20/19 20 2019 Inactive lisinopril 2.5 mg tablet RxNorm: 510881 1 Tablet(s) PO daily 10/20/19 20 2019 Inactive levothyroxine 50 mcg tablet RxNorm: 183359 1 Tablet(s) PO daily 10/20/19 20 2019 Inactive This refill negates all other refills of this medication fenugreek seed extract 500 mg capsule RxNorm: 1 Capsule(s) Oral three times a day 10/17/19 20 2021 Inactive hydrochlorothiazide 25 mg tablet RxNorm: 730823 1 Tablet(s) Oral every day 10/17/192019 Inactive Alcohol Prep Pads RxNorm: 575696 1 Patch TOP QAM 10/16/19 20 2020 Inactive loperamide 2 mg tablet RxNorm: 318785 1 Tablet(s) Oral as needed take one [...] 2019 Inactive hydrochlorothiazide 25 mg tablet RxNorm: 433846 1 Tablet(s) Oral every day 09/19/20 19 2019 Inactive Sudafed 12 Hour 120 mg tablet,extended release RxNorm: 1943579 1 Tablet(s) Oral every 12 hours as needed 09/11/20 19 2018 Inactive omeprazole 20 mg capsule,delayed release RxNorm: 980215 1 Capsule(s) Oral every day 09/07/20 19 2019 Inactive Sudafed 12 Hour 120 mg tablet,extended release RxNorm: 7514500 1 Tablet(s) Oral every 12 hours as needed 09/04/20 19 2018 Inactive pantoprazole 40 mg tablet,delayed release RxNorm: 215574 1 Tablet(s) Oral every day 08/24/20 19 2018 Inactive discontinue any other H2Blkr. and PPI albuterol sulfate 2.5 mg/3 mL (0.083 %) solution for nebulization RxNorm: 513630 1 Vial Inhalation every four hours as needed as needed for dyspnea 08/17/202019 Inactive 60/box. This refill negates all other refills of this medication. Please do not fill early. Please do not auto refill. Symbicort 160 mcg-4.5 mcg/actuation HFA aerosol inhaler RxNorm: 9065544 2 Puff(s) INH BID 08/17/20 19 No Stop Date Active Alcohol Prep Pads RxNorm: 494237 1 Patch TOP QAM 08/17/20 19 2019 Inactive Ventolin HFA 90 mcg/actuation aerosol inhaler RxNorm: 147182 2 Puff(s) INH QID 08/09/20 19 2019 Inactive Please do not fill early. Please do not auto refill. This refill negates all other refills of this medication True Metrix Glucose Test Strip RxNorm: 1 Test Strips Miscellaneous QAM 08/09/20 19 2019 Inactive 100/container atorvastatin 40 mg tablet RxNorm: 085303 1 Tablet(s) Oral every day 07/04/20 19 2019 Inactive levmetamfetamine 50 mg nasal inhaler RxNorm: 1 Unit(s) NASAL Q3-4H Do not use more than every 3 hours or 8 times/24hours 06/26/20 19 2021 Inactive Please do not auto refill. This refill negates all other refills of this medication buspirone 7.5 mg tablet RxNorm: 756635 1 Tablet(s) PO BID 09/24/2020 Inactive This refill negates all other refills of this medication hydrochlorothiazide 12.5 mg tablet RxNorm: 221834 1 Tablet(s) PO QAM 06/26/20 19 2019 Inactive Ventolin HFA 90 mcg/actuation aerosol inhaler RxNorm: 542130 2 Puff(s) INH QID 06/26/20 19 2018 Inactive Please do not fill early. Please do not auto refill. This refill negates all other refills of this medication Singulair 10 mg tablet RxNorm: 587581 1 Tablet(s) PO daily 06/26/20 19 2019 Inactive This refill negates all other refills of this medication cetirizine 10 mg tablet RxNorm: 1018530 1 Tablet(s) PO daily 06/26/20 19 2019 Inactive This refill negates all other refills of this medication. Please do not auto refill levothyroxine 50 mcg tablet RxNorm: 215259 1 Tablet(s) PO daily 06/26/20 19 2019 Inactive This refill negates all other refills of this medication diclofenac sodium 75 mg tablet,delayed release RxNorm: 089982 1 Tablet(s) PO BID 06/26/20 19 2019 Inactive This refill negates all other refills of this medication ranitidine 150 mg tablet RxNorm: 344797 1 Tablet(s) PO BID 06/26/20 19 2018 Inactive This refill negates all other refills of this medication Calcium 600-D3 Plus (mag-zinc) 600 mg calcium-800 unit-50 mg tablet RxNorm: 1 Tablet(s) PO daily take an additonal tablet for itching. 06/26/20 19 2018 Inactive This refill negates all other refills of this medication albuterol sulfate 2.5 mg/3 mL (0.083 %) solution for nebulization RxNorm: 736615 1 Vial INH QID 06/26/20 19 2018 Inactive 60/box. This refill negates all other refills of this medication. Please do not fill early. Please do not auto refill. lisinopril 2.5 mg tablet RxNorm: 902690 1 Tablet(s) PO daily 06/21/20 19 2019 Inactive gabapentin 300 mg capsule RxNorm: 000302 1 Capsule(s) PO TID 06/21/20 19 2019 Inactive atorvastatin 20 mg tablet RxNorm: 999896 1 Tablet(s) PO QHS 06/07/20 19 2018 Inactive This refill negates all other refills of this medication TRUEplus Lancets 30 gauge RxNorm: 1 Lancets Miscellaneous QAM 05/29/20 19 2018 Inactive 100/box gabapentin 300 mg capsule RxNorm: 719420 1 Capsule(s) PO TID 05/03/20 19 2018 Inactive Flintstones Complete (iron) 18 mg iron chewable tablet RxNorm: 1 Tablet(s) PO daily 04/04/20 19 2021 Inactive This refill negates all other refills of this medication gabapentin 300 mg capsule RxNorm: 833689 1 Capsule(s) PO TID as needed 02/01/20 19 2018 Inactive True Metrix Glucose Test Strip RxNorm: 1 Test Strips Miscellaneous QAM 02/01/20 19 2018 Inactive 100/container Alcohol Prep Pads RxNorm: 565909 1 Patch TOP QAM 02/01/20 19 2018 Inactive TRUEplus Lancets 30 gauge RxNorm: 1 Lancets Miscellaneous QAM 02/01/20 19 2018 Inactive 100/box lisinopril 2.5 mg tablet RxNorm: 310605 1 Tablet(s) PO daily 12/28/19 19 2018 Inactive ranitidine 150 mg tablet RxNorm: 013401 1 Tablet(s) PO BID 10/21/19 19 2018 Inactive This refill negates all other refills of this medication albuterol sulfate 2.5 mg/3 mL (0.083 %) solution for nebulization RxNorm: 548525 1 Vial INH QID 10/21/19 19 2018 [...] this medication gabapentin 300 mg capsule RxNorm: 740326 1 Capsule(s) PO TID as needed 10/21/19 19 2018 Inactive atorvastatin 20 mg tablet RxNorm: 236205 1 Tablet(s) PO QHS 10/21/192018 Inactive This refill negates all other refills of this medication trazodone 50 mg tablet RxNorm: 975161 1 Tablet(s) PO QHS 10/21/192018 Inactive This refill negates all other refills of this medication Ventolin HFA 90 mcg/actuation aerosol inhaler RxNorm: 031834 2 Puff(s) INH QID 10/21/192018 Inactive Please do not fill early. Please do not auto refill. This refill negates all other refills of this medication Calcium 600-D3 Plus 600 mg calcium-800 unit-50 mg tablet RxNorm: 1 Tablet(s) PO daily take an additonal tablet for itching. 10/21/192018 Inactive This refill negates all other refills of this medication Singulair 10 mg tablet RxNorm: 136309 1 Tablet(s) PO daily 10/21/192018 Inactive This refill negates all other refills of this medication buspirone 7.5 mg tablet RxNorm: 931101 1 Tablet(s) PO BID 10/21/192018 Inactive This refill negates all other refills of this medication diclofenac sodium 75 mg tablet,delayed release RxNorm: 092703 1 Tablet(s) PO BID 10/21/192018 Inactive This refill negates all other refills of this medication hydrochlorothiazide 12.5 mg tablet RxNorm: 764428 1 Tablet(s) PO QAM 10/21/19 19 2018 Inactive metoprolol succinate ER 50 mg tablet,extended release 24 hr RxNorm: 113510 1 Tablet(s) PO daily 10/21/19 19 2018 Inactive This refill negates all other refills of this medication levothyroxine 50 mcg tablet RxNorm: 778943 1 Tablet(s) PO daily 10/21/19 19 2018 Inactive This refill negates all other refills of this medication cetirizine 10 mg tablet RxNorm: 2625007 1 Tablet(s) PO daily 10/21/19 19 2018 Inactive This refill negates all other refills of this medication. Please do not auto refill Flintstones Complete (iron) 18 mg iron chewable tablet RxNorm: 1 Tablet(s) PO daily 10/21/19 19 2018 Inactive This refill negates all other refills of this medication buspirone 7.5 mg tablet RxNorm: 895981 1 Tablet(s) PO BID 10/12/19 19 2018 Inactive cetirizine 10 mg tablet RxNorm: 1729112 1 Tablet(s) PO daily 09/28/20 18 2018 Inactive Guaiasorb DM 10 mg-100 mg/5 mL oral liquid RxNorm: 447343 10 Milliliter(s) PO As needed every 4 hr 09/24/20 18 2018 Inactive Vicks Vaporub 4.7 %-1.2 %-2.6 % topical ointment RxNorm: 9761786 1 Application TOP TID 09/24/20 18 2018 Inactive levmetamfetamine 50 mg nasal inhaler RxNorm: 1 Unit(s) NASAL Q3-4H 09/24/20 18 2017 Inactive sertraline 50 mg tablet RxNorm: 349907 1 Tablet(s) PO daily 09/09/20 18 2018 Inactive Please note dose trazodone 50 mg tablet RxNorm: 245524 1 Tablet(s) PO QHS 09/06/20 18 2018 Inactive sertraline 50 mg tablet RxNorm: 195516 1 Tablet(s) PO daily 09/06/20 18 2017 Inactive amoxicillin 500 mg tablet RxNorm: 641954 1 Tablet(s) PO Q12H 08/31/20 18 2017 Inactive albuterol sulfate 2.5 mg/3 mL (0.083 %) solution for nebulization RxNorm: 492069 1 Vial INH QID 08/10/20 18 2018 Inactive 60/box. Please do not fill early. Please do not auto refill. Prozac 10 mg capsule RxNorm: 814290 1 Capsule(s) PO daily 08/09/20 18 2017 Inactive buspirone 7.5 mg tablet RxNorm: 276284 1 Tablet(s) PO BID 08/09/20 18 2018 Inactive gabapentin 300 mg capsule RxNorm: 028032 1 Capsule(s) PO TID as needed 08/01/20 18 2018 Inactive hydrochlorothiazide 12.5 mg tablet RxNorm: 708447 1 Tablet(s) PO QAM 08/01/20 18 2018 Inactive ranitidine 150 mg tablet RxNorm: 135213 1 Tablet(s) PO BID 08/01/20 18 2018 Inactive Macrobid 100 mg capsule RxNorm: 833933 1 Capsule(s) PO Q12H 06/21/20 18 2017 Inactive Singulair 10 mg tablet RxNorm: 875989 1 Tablet(s) PO daily 06/14/20 18 2018 Inactive Ventolin HFA 90 mcg/actuation aerosol inhaler RxNorm: 3026045 2 Puff(s) INH QID 06/14/20 18 2018 Inactive Singulair 10 mg tablet RxNorm: 460464 1 Tablet(s) PO daily 06/14/20 18 2017 Inactive buspirone 7.5 mg tablet RxNorm: 323163 1 Tablet(s) PO BID 06/14/20 18 2017 Inactive Prozac 10 mg capsule RxNorm: 248093 1 Capsule(s) PO daily 06/14/20 18 2017 Inactive Neilmed Pediatric Sinus Rinse Refill packet RxNorm: 1 Unit Dose NASAL PRN 05/31/20 18 2021 Inactive diclofenac sodium 75 mg tablet,delayed release RxNorm: 129118 1 Tablet(s) PO BID 05/31/20 18 2017 Inactive lisinopril 2.5 mg tablet RxNorm: 525353 1 Tablet(s) PO daily 05/31/20 18 2017 Inactive metoprolol succinate ER 50 mg tablet,extended release 24 hr RxNorm: 532622 1 Tablet(s) PO daily 05/31/20 18 2017 Inactive levothyroxine 50 mcg tablet RxNorm: 212961 1 Tablet(s) PO daily 05/31/20 18 2017 Inactive TRUEplus Lancets 30 gauge RxNorm: 1 Lancets Miscellaneous QAM 05/31/20 18 2017 Inactive 100/box Ventolin HFA 90 mcg/actuation aerosol inhaler RxNorm: 115161 2 Puff(s) INH QID 05/31/20 18 2017 Inactive Aleve 220 mg capsule RxNorm: 4192048 1 Capsule(s) PO BID 05/31/20 18 2018 Inactive ranitidine 150 mg tablet RxNorm: 870823 1 Tablet(s) PO BID 05/31/20 18 2017 Inactive gabapentin 300 mg capsule RxNorm: 124871 1 Capsule(s) PO TID as needed 05/31/20 18 2017 Inactive atorvastatin 20 mg tablet RxNorm: 567037 1 Tablet(s) PO QHS 05/31/20 18 2017 Inactive True Metrix Glucose Test Strip RxNorm: 1 Test Strips Miscellaneous QAM 05/31/20 18 2017 Inactive 50/container Calcium 600-D3 Plus 600 mg calcium-800 unit-50 mg tablet RxNorm: 1 Tablet(s) PO daily take an additonal tablet for itching. 05/31/20 18 2017 Inactive hydrochlorothiazide 12.5 mg tablet RxNorm: 435385 1 Tablet(s) PO QAM 05/31/20 18 2017 Inactive Flintstones Complete (iron) 18 mg iron chewable tablet RxNorm: 1 Tablet(s) PO daily 05/31/20 18 2017 Inactive d-mannose oral powder RxNorm: PO 18 2021 Inactive True Metrix Glucose Meter RxNorm: miscellaneous 08/17/202018 Inactive sertraline 50 mg tablet RxNorm: 036521 1 Tablet(s) PO daily 11/28/19 20 2019 Inactive loperamide 2 mg tablet RxNorm: 254432 oral 09/29/20 19 2018 Inactive Symbicort 160 mcg-4.5 mcg/actuation HFA aerosol inhaler RxNorm: 1502506 2 Puff(s) INH BID 08/17/202018 Inactive Medication Administered No Medication Administered data Procedures Procedure Codes Date Electrocardiogram CPT-4: 57607 05/14/2020 Tobacco Assessment/Screening CPT-4: TCA Fall Risk Assessment SNOMED CT: 67746171 4 CPT-4: DFRA01/01/2020Functional AssessmentCPT-4: DFA01/01/2020[place] Fany AssessmentCPT-4: DSWA11/28/2019Patient Health QuestionnaireCPT-4: DPHQ11/28/2019 [place] Fany AssessmentCPT-4: DSWA10/17/2019HypertensionCPT-4: HTN10/17/[address]: 809396084 CPT-4: DFRA09/19/2019Functional AssessmentCPT-4: DFA111/20/2018Urinalysis, dip stickCPT-4: 303430006/21/2019Tobacco Assessment/ScreeningCPT-4: TCA05/24/2019 Patient Health QuestionnaireCPT-4: DPHQ05/24/2019AHA/REBECCA Classification AssessmentCPT-4: DAHA04/25/2019Controlled Substance ReportCPT-4: CTRSU04/25/2019 Urinalysis, dip stickCPT-4: 477834803/28/2019Urinalysis, dip stickCPT-4: 50266 03/28/20197717Q5Q-WgxzchfnttdpagbSXS-4: 68588ZtsjbbyD9H-EakoeqmbdmfuhepPBL-4: 61418 JabmoynI3O-LhsvaysshnnrlarFHV-2: 22700FdzbpavQ8I-SavlxlnqktcotmzTXZ-7: [address]: 916538874 CPT-4: Y84Bwzfunc Reason For Visit No Reason For Visit data Plan of Care Planned Activity Notes Codes Status Date Referral: Pending Gynecology Referral Informatio n Referral ProcessedReferral: Pending Pulmonology Referral InformationReferralProcessed Referral: Pending Psychiatry Referral InformationReferralInitiatedReferral: Pending Respiratory Services Referral InformationReferralInitiatedReferral: Pending Ophthalmology Referral InformationReferralInitiatedReferral: [facility] WPtel: [address] [facility] USWriter placed a call out to the patient to notify her that it has been recommended that she be seenby a urologist. Patient agreed to be seen, does not have a provider of choice and no transportationissues. Retail Account Representative faxed referral and clinical notes to [facility] in [place], [place] near the patient's home. Patient to [...] seen and prefers a provider in the [place] or [place] area. Retail Account Representative placed a call out to everyone listed in the area and the only location that was able to accept the patient's insurance was [address] [address] and spoke with Maylin. Maylin asked that the patient's referral, face sheet and visit notes be faxed to . Retail Account Representative faxed over requested documents. Patient appointment confirmation letter generated and mailed to her home address. Patient to call to schedule an appointment.ProcessedReferral: [facility] WPtel: [address] [place] USPatient notified that it has been advised that she be seen by Neurology. Patient agreed to be seen and prefers to be seen by a provider in the [place], [place] area. Patient denies any concerns with transportation, and prefers to schedule her own appointment. Retail Account Representative placed a call out to [facility] and spoke with Neeraj P: who confirmed that their office is able to acceptnew patients and the patient's insurance. After confirming the providers fax number, copywriter faxed over the patient's referral, and [...]
--- OUTSIDE RECORDS SUMMARY | 2023-12-07 02:12 | XMS_ITS | CCD ---
Author Name Leena Culver NP Address [address] [place] [address] [place] [address] Phone Organization [employer] [facility] Phone Care Team Providers Care Senior Accounts Payable Clerk Name Role Phone Anna Culver NP Primary Care Provider Unav ailable Unavailable Chronic Care Management Unavaila ble Summary Purpose DataExchange Insurance Providers Payer name Policy type / Coverage type Covered green party ID Effective Begin Date Effective End Date SUKI MAYO [id number] Unknown Unknown Family history Mother Diagnosis Age [...] 05/31/2018 Education level Unknown Some High School 10th05/31/20187711GkdbtzwakvDsmezjpYtbsoxlsxg75/29/2018Tobacco historySNOMED CT: 275624117Iix never smoked or chewed wpxydnt9505/31/2018Alcohol historySNOMED CT: 952833641Anqre drinks ebhoali8105/31/2018Has the patient ever used illegal drugs? UnknownHas never used illegal drugs05/31/2018DNR Order/ Advanced Directive UnknownFull Code05/31/2018 Allergies, Adverse Reactions, Alerts Substance Reaction Codes Entered Date Inactivated Date Status *No known food allergies Aadaqfk4909/06/2018No Inactive DateActiveMethylprednisolonehivesRxNorm: 6902 09/06/2018No Inactive DateActive Problems Condition Codes Effective Dates Condition St atus Encounter for screening, unspecified ICD -10: Z13.9 ICD-9: V82.9111/06/2017ActiveEssential (primary) hypertensionICD-10: I10 ICD-9: 401.901ActiveType 2 diabetes mellitus with peripheral neuropathy ICD-10: E11.42 ICD-9: 250.6002Active(Z12.4-V76.2) Encounter for screening for malignant neoplasm of cervixICD-10: Z12.4 ICD-9: V76.207/ActiveChronic kidney disease, unspecifiedICD-10: N18.9 ICD-9: 585.909ActiveEncounter for immunizationICD-10: Z23 ICD-9: V04.8109ActiveHyperlipidemia, unspecifiedICD-10: E78.5 ICD-9: 272.408ActiveHypertensive heart disease with heart failureICD-10: I11.0 ICD-9: 402.9107ActiveHypothyroidism, unspecifiedICD-10: E03.9 ICD-9: 244.912ActiveRight wrist painICD-10: M25.531 ICD-9: 719.4308Active(Z12.11-V76.51) Encounter for screening for malignant neoplasm of colonICD-10: Z12.11 ICD-9: V76.5107/Active(Z12.31-V76.12) Encounter for screening mammogram for malignant neoplasm of breastICD-10: Z12.31 ICD-9: V76.1207/ActiveAdult BMI 50.0-59.9 kg/sq mICD-10: Z68.43 ICD-9: V85.4308ActiveAbrasion of toeICD-10: S90.416A ICD-9: 917.005ActiveObstructive sleep apnea [...] ICD-9: 250.0001ActiveSinusitisICD-10: J32.9 ICD-9: 473.9011/07/2019ActiveAsthmaICD-10: J45.909 ICD-9: 493.9011ActiveGERD (gastroesophageal reflux disease)ICD-10: K21.9 ICD-9: 530.8112ActiveAcute upper respiratory infection, unspecifiedICD- 10: J06.9 ICD-9: 465.912ActiveApnea, not elsewhere classifiedICD-10: R06.81 ICD-9: 786.0305ActiveEncounter for immunizationICD-10: Z23 ICD-9: V03.907/ActivePolyneuropathy, unspecifiedICD-10: G62.9 ICD-9: 356.908ActivePatient Not SeenICD-10: UXZ.01 ICD-9: XZ0.107ActiveOther alf (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ICD-10: Z79.899 ICD-9: V58.6907/ActiveChest [...] Fill Instructions metformin 500 mg tablet RxNorm: 631292 1 Tablet(s) Oral two times a day 07/08/20 20 2019 Inactive loperamide 2 mg tablet RxNorm: 974565 1 Tablet(s) Oral as needed take one tablet after each loose stool, maximum of 8 tablets in 24 hours 06/24/20 20 2021 Inactive Sudafed 12 Hour 120 mg tablet,extended release RxNorm: 9352457 TAKE 1 TABLET BY MOUTH EVERY 12 HOURS NEEDED 06/11/20 20 2019 Inactive hydrochlorothiazide 25 mg tablet RxNorm: 331725 TAKE (1) TABLET BY MOUTH EVERY DAY 06/11/202019 Inactive omeprazole 20 mg capsule,delayed release RxNorm: 315377 TAKE 1 CAPSULE BY MOUTH EVERY DAY 05/14/20 20 2020 Inactive metformin 500 mg tablet RxNorm: 837729 1 Tablet(s) Oral every day 05/12/20 20 2019 Inactive True Metrix Glucose Test Strip RxNorm: 1 Test Strips Miscellaneous two times a day as needed 04/17/20 No Stop Date Active metformin 500 mg tablet RxNorm: 493235 1 Tablet(s) Oral every day 04/17/20 20 2019 Inactive diclofenac sodium 75 mg tablet,delayed release RxNorm: 305944 1 Tablet(s) PO BID 04/14/20 20 2021 Inactive This refill negates all other refills of this medication Sudafed 12 Hour 120 mg tablet,extended release RxNorm: 3666429 TAKE 1 TABLET BY MOUTH EVERY 12 HOURS NEEDED 03/14/20 20 2019 Inactive True Metrix Glucose Test Strip RxNorm: 1 Test Strips Miscellaneous every morning 03/13/20 20 2019 Inactive 100/container True Metrix Glucose Test Strip RxNorm: 1 Test Strips Miscellaneous QAM 02/22/20 20 2019 Inactive 100/container loperamide 2 mg tablet RxNorm: 257311 1 Tablet(s) Oral as needed take one tablet after each loose stool, maximum of 8 tablets in 24 hours 02/22/20 20 2019 Inactive cetirizine 10 mg tablet RxNorm: 0378898 1 Tablet(s) PO daily 01/17/20 20 2019 Inactive levothyroxine 50 mcg tablet RxNorm: 336397 1 Tablet(s) PO daily 01/17/20 20 2020 Inactive gabapentin 300 mg capsule RxNorm: 993220 1 Capsule(s) PO TID 01/17/20 20 2019 Inactive loperamide 2 mg tablet RxNorm: 675831 1 Tablet(s) Oral as needed take one tablet after each loose stool, maximum of 8 tablets in 24 hours 01/17/20 20 2019 Inactive quetiapine 100 mg tablet RxNorm: 322493 1 Tablet(s) Oral every night at bedtime 01/17/20 20 2019 Inactive lisinopril 2.5 mg tablet RxNorm: 314778 1 Tablet(s) PO daily 01/15/20 20 2020 Inactive Singulair 10 mg tablet RxNorm: 940936 1 Tablet(s) PO daily 01/15/20 20 2020 Inactive levothyroxine 50 mcg tablet RxNorm: 462396 1 Tablet(s) PO daily 01/15/20 20 2019 Inactive gabapentin 300 mg capsule RxNorm: 061853 1 Capsule(s) PO TID 01/15/20 20 2019 Inactive cetirizine 10 mg tablet RxNorm: 6929148 1 Tablet(s) PO daily 01/15/20 20 2019 Inactive gentamicin 0.3 % eye drops RxNorm: 941759 1 Drop(s) ophthalmic (eye) four times a day 12/29/19 20 2019 Inactive gentamicin 0.3 % eye drops RxNorm: 379947 1 Drop(s) ophthalmic (eye) four times a day 12/29/19 20 2019 Inactive gentamicin 0.3 % eye drops RxNorm: 171906 1 Drop(s) ophthalmic (eye) four times a day 12/29/19 20 2019 Inactive hydrochlorothiazide 25 mg tablet RxNorm: 526158 1 Tablet(s) Oral every day 12/21/19 20 2019 Inactive Sudafed 12 Hour 120 mg tablet,extended release RxNorm: 6122360 TAKE (1) TABLET BY MOUTH EVERY 12 HOURS NEEDED 12/21/19 20 2019 Inactive loperamide 2 mg tablet RxNorm: 939005 1 Tablet(s) Oral as needed take one tablet after each loose stool, maximum of 8 tablets in 24 hours 12/11/19 20 2019 Inactive loperamide 2 mg tablet RxNorm: 291081 1 Tablet(s) Oral as needed take one tablet after each loose stool, maximum of 8 tablets in 24 hours 12/11/19 20 2019 Inactive atorvastatin 40 mg tablet RxNorm: 716377 1 Tablet(s) Oral every day 11/29/19 20 2020 Inactive quetiapine 100 mg tablet RxNorm: 132854 1 Tablet(s) Oral every night at bedtime 11/28/19 20 2019 Inactive sertraline 100 mg tablet RxNorm: 487152 1 Tablet(s) Oral 11/28/19 20 2019 Inactive omeprazole 20 mg capsule,delayed release RxNorm: 290736 1 Capsule(s) Oral every day 11/20/19 20 2019 Inactive amoxicillin 250 mg capsule RxNorm: 578633 1 Capsule(s) Oral three times a day 11/07/19 20 2019 Inactive multivitamin with iron-mineral tablet RxNorm: 1 Tablet(s) Oral every day 10/29/19 20 2021 Inactive cetirizine 10 mg tablet RxNorm: 1734831 1 Tablet(s) PO daily 10/20/19 20 2019 Inactive This refill negates all other refills of this medication. Please do not auto refill Singulair 10 mg tablet RxNorm: 125907 1 Tablet(s) PO daily 10/20/19 20 2019 Inactive This refill negates all other refills of this medication gabapentin 300 mg capsule RxNorm: 527751 1 Capsule(s) PO TID 10/20/19 20 2019 Inactive lisinopril 2.5 mg tablet RxNorm: 815116 1 Tablet(s) PO daily 10/20/19 20 2019 Inactive levothyroxine 50 mcg tablet RxNorm: 781599 1 Tablet(s) PO daily 10/20/192019 Inactive This refill negates all other refills of this medication fenugreek seed extract 500 mg capsule RxNorm: 1 Capsule(s) Oral three times a day 10/17/19 20 2021 Inactive hydrochlorothiazide 25 mg tablet RxNorm: 105485 1 Tablet(s) Oral every day 10/17/19 20 2019 Inactive Alcohol Prep Pads RxNorm: 659765 1 Patch TOP QAM 10/16/19 20 2020 Inactive loperamide 2 mg tablet RxNorm: 508123 1 Tablet(s) Oral as needed take one [...] 2019 Inactive hydrochlorothiazide 25 mg tablet RxNorm: 269369 1 Tablet(s) Oral every day 09/19/20 19 2019 Inactive Sudafed 12 Hour 120 mg tablet,extended release RxNorm: 4584615 1 Tablet(s) Oral every 12 hours as needed 09/11/20 19 2018 Inactive omeprazole 20 mg capsule,delayed release RxNorm: 311614 1 Capsule(s) Oral every day 09/07/20 19 2019 Inactive Sudafed 12 Hour 120 mg tablet,extended release RxNorm: 7755075 1 Tablet(s) Oral every 12 hours as needed 09/04/20 19 2018 Inactive pantoprazole 40 mg tablet,delayed release RxNorm: 501126 1 Tablet(s) Oral every day 08/24/20 19 2018 Inactive discontinue any other H2Blkr. and PPI albuterol sulfate 2.5 mg/3 mL (0.083 %) solution for nebulization RxNorm: 351822 1 Vial Inhalation every four hours as needed as needed for dyspnea 08/17/202019 Inactive 60/box. This refill negates all other refills of this medication. Please do not fill early. Please do not auto refill. Symbicort 160 mcg-4.5 mcg/actuation HFA aerosol inhaler RxNorm: 7520334 2 Puff(s) INH BID 08/17/20 19 No Stop Date Active Alcohol Prep Pads RxNorm: 882995 1 Patch TOP QAM 08/17/20 19 2019 Inactive Ventolin HFA 90 mcg/actuation aerosol inhaler RxNorm: 351786 2 Puff(s) INH QID 08/09/20 19 2019 Inactive Please do not fill early. Please do not auto refill. This refill negates all other refills of this medication True Metrix Glucose Test Strip RxNorm: 1 Test Strips Miscellaneous QAM 08/09/20 19 2019 Inactive 100/container atorvastatin 40 mg tablet RxNorm: 021340 1 Tablet(s) Oral every day 07/04/20 19 2019 Inactive levmetamfetamine 50 mg nasal inhaler RxNorm: 1 Unit(s) NASAL Q3-4H Do not use more than every 3 hours or 8 times/24hours 06/26/20 19 2021 Inactive Please do not auto refill. This refill negates all other refills of this medication buspirone 7.5 mg tablet RxNorm: 096572 1 Tablet(s) PO BID 06/26/20 19 2020 Inactive This refill negates all other refills of this medication hydrochlorothiazide 12.5 mg tablet RxNorm: 800512 1 Tablet(s) PO QAM 06/26/20 19 2019 Inactive Ventolin HFA 90 mcg/actuation aerosol inhaler RxNorm: 568168 2 Puff(s) INH QID 06/26/20 19 2018 Inactive Please do not fill early. Please do not auto refill. This refill negates all other refills of this medication Singulair 10 mg tablet RxNorm: 106092 1 Tablet(s) PO daily 06/26/20 19 2019 Inactive This refill negates all other refills of this medication cetirizine 10 mg tablet RxNorm: 3644454 1 Tablet(s) PO daily 06/26/20 19 2019 Inactive This refill negates all other refills of this medication. Please do not auto refill levothyroxine 50 mcg tablet RxNorm: 596176 1 Tablet(s) PO daily 06/26/20 19 2019 Inactive This refill negates all other refills of this medication diclofenac sodium 75 mg tablet,delayed release RxNorm: 421575 1 Tablet(s) PO BID 06/26/20 19 2019 Inactive This refill negates all other refills of this medication ranitidine 150 mg tablet RxNorm: 067114 1 Tablet(s) PO BID 06/26/20 19 2018 Inactive This refill negates all other refills of this medication Calcium 600-D3 Plus (mag-zinc) 600 mg calcium-800 unit-50 mg tablet RxNorm: 1 Tablet(s) PO daily take an additonal tablet for itching. 06/26/20 19 2018 Inactive This refill negates all other refills of this medication albuterol sulfate 2.5 mg/3 mL (0.083 %) solution for nebulization RxNorm: 357271 1 Vial INH QID 06/26/20 19 2018 Inactive 60/box. This refill negates all other refills of this medication. Please do not fill early. Please do not auto refill. lisinopril 2.5 mg tablet RxNorm: 011779 1 Tablet(s) PO daily 06/21/20 19 2019 Inactive gabapentin 300 mg capsule RxNorm: 450675 1 Capsule(s) PO TID 06/21/20 19 2019 Inactive atorvastatin 20 mg tablet RxNorm: 986094 1 Tablet(s) PO QHS 06/07/20 19 2018 Inactive This refill negates all other refills of this medication TRUEplus Lancets 30 gauge RxNorm: 1 Lancets Miscellaneous QAM 05/29/20 19 2018 Inactive 100/box gabapentin 300 mg capsule RxNorm: 438268 1 Capsule(s) PO TID 05/03/20 19 2018 Inactive Flintstones Complete (iron) 18 mg iron chewable tablet RxNorm: 1 Tablet(s) PO daily 04/04/20 19 2021 Inactive This refill negates all other refills of this medication gabapentin 300 mg capsule RxNorm: 114759 1 Capsule(s) PO TID as needed 02/01/20 19 2018 Inactive True Metrix Glucose Test Strip RxNorm: 1 Test Strips Miscellaneous QA 02/01/20 19 2018 Inactive 100/container Alcohol Prep Pads RxNorm: 096214 1 Patch TOP QAM 02/01/20 19 2018 Inactive TRUEplus Lancets 30 gauge RxNorm: 1 Lancets Miscellaneous QAM 02/01/20 19 2018 Inactive 100/box lisinopril 2.5 mg tablet RxNorm: 273898 1 Tablet(s) PO daily 12/28/19 19 2018 Inactive ranitidine 150 mg tablet RxNorm: 749078 1 Tablet(s) PO BID 10/21/19 19 2018 Inactive This refill negates all other refills of this medication albuterol sulfate 2.5 mg/3 mL (0.083 %) solution for nebulization RxNorm: 598284 1 Vial INH QID 10/21/19 19 2018 [...] this medication gabapentin 300 mg capsule RxNorm: 328343 1 Capsule(s) PO TID as needed 10/21/19 19 2018 Inactive atorvastatin 20 mg tablet RxNorm: 338457 1 Tablet(s) PO QHS 10/21/192018 Inactive This refill negates all other refills of this medication trazodone 50 mg tablet RxNorm: 242146 1 Tablet(s) PO QHS 10/21/192018 Inactive This refill negates all other refills of this medication Ventolin HFA 90 mcg/actuation aerosol inhaler RxNorm: 279176 2 Puff(s) INH QID 10/21/192018 Inactive Please do not fill early. Please do not auto refill. This refill negates all other refills of this medication Calcium 600-D3 Plus 600 mg calcium-800 unit-50 mg tablet RxNorm: 1 Tablet(s) PO daily take an additonal tablet for itching. 10/21/192018 Inactive This refill negates all other refills of this medication Singulair 10 mg tablet RxNorm: 692797 1 Tablet(s) PO daily 10/21/192018 Inactive This refill negates all other refills of this medication buspirone 7.5 mg tablet RxNorm: 325275 1 Tablet(s) PO BID 10/21/192018 Inactive This refill negates all other refills of this medication diclofenac sodium 75 mg tablet,delayed release RxNorm: 626065 1 Tablet(s) PO BID 10/21/19 19 2018 Inactive This refill negates all other refills of this medication hydrochlorothiazide 12.5 mg tablet RxNorm: 729383 1 Tablet(s) PO QAM 10/21/19 19 2018 Inactive metoprolol succinate ER 50 mg tablet,extended release 24 hr RxNorm: 006690 1 Tablet(s) PO daily 10/21/19 19 2018 Inactive This refill negates all other refills of this medication levothyroxine 50 mcg tablet RxNorm: 781581 1 Tablet(s) PO daily 10/21/19 19 2018 Inactive This refill negates all other refills of this medication cetirizine 10 mg tablet RxNorm: 1272888 1 Tablet(s) PO daily 10/21/192018 Inactive This refill negates all other refills of this medication. Please do not auto refill Flintstones Complete (iron) 18 mg iron chewable tablet RxNorm: 1 Tablet(s) PO daily 10/21/192018 Inactive This refill negates all other refills of this medication buspirone 7.5 mg tablet RxNorm: 027800 1 Tablet(s) PO BID 10/12/19 19 2018 Inactive cetirizine 10 mg tablet RxNorm: 0954415 1 Tablet(s) PO daily 09/28/202018 Inactive Guaiasorb DM 10 mg-100 mg/5 mL oral liquid RxNorm: 913553 10 Milliliter(s) PO As needed every 4 hr 09/24/202018 Inactive Vicks Vaporub 4.7 %-1.2 %-2.6 % topical ointment RxNorm: 1415967 1 Application TOP TID 09/24/20 18 2018 Inactive levmetamfetamine 50 mg nasal inhaler RxNorm: 1 Unit(s) NASAL Q3-4H 09/24/20 18 2017 Inactive sertraline 50 mg tablet RxNorm: 804385 1 Tablet(s) PO daily 09/09/20 18 2018 Inactive Please note dose trazodone 50 mg tablet RxNorm: 805350 1 Tablet(s) PO QHS 09/06/20 18 2018 Inactive sertraline 50 mg tablet RxNorm: 072725 1 Tablet(s) PO daily 09/06/20 18 2017 Inactive amoxicillin 500 mg tablet RxNorm: 076473 1 Tablet(s) PO Q12H 08/31/20 18 2017 Inactive albuterol sulfate 2.5 mg/3 mL (0.083 %) solution for nebulization RxNorm: 874044 1 Vial INH QID 08/10/20 18 2018 Inactive 60/box. Please do not fill early. Please do not auto refill. Prozac 10 mg capsule RxNorm: 052364 1 Capsule(s) PO daily 08/09/20 18 2017 Inactive buspirone 7.5 mg tablet RxNorm: 291329 1 Tablet(s) PO BID 08/09/20 18 2018 Inactive gabapentin 300 mg capsule RxNorm: 789175 1 Capsule(s) PO TID as needed 08/01/20 18 2018 Inactive hydrochlorothiazide 12.5 mg tablet RxNorm: 761146 1 Tablet(s) PO QAM 08/01/20 18 2018 Inactive ranitidine 150 mg tablet RxNorm: 991234 1 Tablet(s) PO BID 08/01/20 18 2018 Inactive Macrobid 100 mg capsule RxNorm: 230567 1 Capsule(s) PO Q12H 06/21/20 18 2017 Inactive Singulair 10 mg tablet RxNorm: 185223 1 Tablet(s) PO daily 06/14/20 18 2018 Inactive Ventolin HFA 90 mcg/actuation aerosol inhaler RxNorm: 7705144 2 Puff(s) INH QID 06/14/20 18 2018 Inactive Singulair 10 mg tablet RxNorm: 463614 1 Tablet(s) PO daily 06/14/20 18 2017 Inactive buspirone 7.5 mg tablet RxNorm: 923729 1 Tablet(s) PO BID 06/14/20 18 2017 Inactive Prozac 10 mg capsule RxNorm: 808120 1 Capsule(s) PO daily 06/14/20 18 2017 Inactive Neilmed Pediatric Sinus Rinse Refill packet RxNorm: 1 Unit Dose NASAL PRN 05/31/20 18 2021 Inactive diclofenac sodium 75 mg tablet,delayed release RxNorm: 923217 1 Tablet(s) PO BID 05/31/20 18 2017 Inactive lisinopril 2.5 mg tablet RxNorm: 578953 1 Tablet(s) PO daily 05/31/20 18 2017 Inactive metoprolol succinate ER 50 mg tablet,extended release 24 hr RxNorm: 952177 1 Tablet(s) PO daily 05/31/20 18 2017 Inactive levothyroxine 50 mcg tablet RxNorm: 151376 1 Tablet(s) PO daily 05/31/20 18 2017 Inactive TRUEplus Lancets 30 gauge RxNorm: 1 Lancets Miscellaneous QAM 05/31/20 18 2017 Inactive 100/box Ventolin HFA 90 mcg/actuation aerosol inhaler RxNorm: 504150 2 Puff(s) INH QID 05/31/20 18 2017 Inactive Aleve 220 mg capsule RxNorm: 7152828 1 Capsule(s) PO BID 05/31/20 18 2018 Inactive ranitidine 150 mg tablet RxNorm: 402698 1 Tablet(s) PO BID 05/31/20 18 2017 Inactive gabapentin 300 mg capsule RxNorm: 672918 1 Capsule(s) PO TID as needed 05/31/20 18 2017 Inactive atorvastatin 20 mg tablet RxNorm: 298683 1 Tablet(s) PO QHS 05/31/20 18 2017 Inactive True Metrix Glucose Test Strip RxNorm: 1 Test Strips Miscellaneous QAM 05/31/20 18 2017 Inactive 50/container Calcium 600-D3 Plus 600 mg calcium-800 unit-50 mg tablet RxNorm: 1 Tablet(s) PO daily take an additonal tablet for itching. 05/31/20 18 2017 Inactive hydrochlorothiazide 12.5 mg tablet RxNorm: 535697 1 Tablet(s) PO QAM 05/31/20 18 2017 Inactive Flintstones Complete (iron) 18 mg iron chewable tablet RxNorm: 1 Tablet(s) PO daily 05/31/20 18 2017 Inactive d-mannose oral powder RxNorm: PO 18 2021 Inactive True Metrix Glucose Meter RxNorm: miscellaneous 08/17/20 19 2018 Inactive sertraline 50 mg tablet RxNorm: 261961 1 Tablet(s) PO daily 11/28/19 20 2019 Inactive loperamide 2 mg tablet RxNorm: 667686 oral 09/29/20 19 2018 Inactive Symbicort 160 mcg-4.5 mcg/actuation HFA aerosol inhaler RxNorm: 7634782 2 Puff(s) INH BID 08/17/202018 Inactive Medication [...] No plan required, re-evaluate annually or prnCPT-4: [id number] ElectrocardiogramCPT-4: 8858768Tobacco Assessment/ScreeningCPT-4: TCA 01/01/2020[facility] CPT-4: DFRA01/01/2020Functional AssessmentCPT-4: DFA01/01/2020[place] Fany AssessmentCPT-4: DSWA11/28/2019Patient Health QuestionnaireCPT-4: DPHQ11/28/2019 [place] Fany AssessmentCPT-4: DSWA10/17/2019HypertensionCPT-4: HTN10/17/[address]: 716[address]0060 CPT-4: DFRA09/19/2019Functional AssessmentCPT-4: DFA111/20/2018Urinalysis, dip stickCPT-4: 7007505Tobacco Assessment/ScreeningCPT-4: TCA05/24/2019 Patient Health QuestionnaireCPT-4: DPHQ05/24/2019AHA/REBECCA Classification AssessmentCPT-4: DAHA04/25/2019Controlled Substance ReportCPT-4: CTRSU04/25/2019 Urinalysis, dip stickCPT-4: 765509103/28/2019Urinalysis, dip stickCPT-4: 34714 03/28/20196050R8V-PfhctdozomyqoeoJPL-9: 58434GdegxefW8F-KmiyvpibpnnptjbULS-4: 01420 RrzfgbvA8X-GlmswyctuukomycTLL-7: 21234OmqumlbE7E-HagxltrxjuuhavsCBJ-3: [address]: 952025634 CPT-4: P54Igwibqk Reason For Visit Reason For Visit Effective Dates Notes hypertension 07/08/2020 diabetes mellitus 07/08/2020 mole check 07/08/2020 Interim health update 07/08/2020 Encounters Encounter Performer Location Location Address Codes Magdi e ([id number]) REMOTE E/M EST. PT 1 5MINS ([id number]) Diagnosis: Type 2 diabetes mellitus with peripheral neuropathy[ICD10: E11.42] Diagnosis: Essential (primary) hypertension[ICD10: I10] Diagnosis: Encounter for screening, unspecified[ICD10: Z13.9]Anna Culver [place] [id number] [place] [address] [place] [address] 00500KKO-2: [id number] Plan of Care Planned Activity Notes Codes [...] 500mg BID received new monitor [employer] through [facility]-participant of [employer] demand -will send all [...] OVN SpO2 <88% greater than 7 minutes EchocardiogramDOS 07/02/2020 Norrmal LVSF, EF 60% N18.9-585.9 Chronic kidney disease, unspecified avoid nephro toxic drugs, 04/17/2020 GFR >100, renal function remains stable Patient denies ability to drink water stating that it dehydrates her-doesn't know diagnosis, but indicates she was told this by previous urologist routine urology follow up-next appt in August 2020G47.33-327.23 Obstructive sleep apnea (adult) (pediatric) J45.909-493.90 Asthma continue inhalers nebulizer routine f/u Dr. Garcia, pulmonology appt August 2020 F43.23-309.28 Adjustment disorder with mixed anxiety and depressed mood routine follow up [place] [facility] E03.9-244.9 Hypothyroidism, unspecified cont levothyroxine E78.5-272.4 Hyperlipidemia, [...] Green Tea and honey Z12.4-V76.2 Encounter for screeningfor malignant neoplasm of cervix last pap January 2019 new appt for pap in June 2020-[facility]-reports pap negative-records requested Z01.89-V72.85 Encounter for screening for tobacco use Tobacco screen complete-patient denies ever smoking Z12.31-V76.12 (Z12.31-V76.12) Encounter for screening mammogram for malignant neoplasm of breast Z12.11-V76.51 (Z12.11-V76.51) Encounter for screening for malignant neoplasm of colon Preventative testing not indicated due to age *I reviewed the most recent CDC guidelines regarding Covid- 19/Coronavirus with the patient/caregiver/designee Specific topics reviewed were: [...] visit verbalized understanding of all above topics. 07/08/2020Patient Education: Patient Medication NinqrgpXcurxfcsk37/06/2020 Patient Education: IruyflrdQomjfulfk68/06/2020Patient Education: Hypertension Xgvwbhwpd14/06/2020Appointment: Gianna Birmingham MCtel: [address] [facility] [address] [id number] CYGZCJ8107/02/2020Appointment: Anna Culver WPtel: [phone] [place] [address] [id number]: Anna Culver WPtel: [phone] [place] [address] [id number]: Anna Culver WPtel: [phone] [place] [address] [id number]: Anna Culver WPtel: [phone] [place] [address] [id number]: Anna Culver WPtel: [phone] [place] [address] [id number]: Anna Culver WPtel: [address] [place] [address] [id number]: Anna Culver WPtel: [address] [place] [address] [id number]: Anna Culver WPtel: [phone] [place] [address] [id number]: Anna Culver WPtel: [phone] [place] [address] [id number]: Anna Culver WPtel: [phone] [place] [address] [id number]: Sudha Hernadez WPtel: [address] [facility] [id number]: Sudha Hernadez WPtel: [address] [facility] [id number]: Charlene Oropeza WPtel: [address] [facility] b [id number]: Danny, BgnhpvG24659/26/2019Appointment: Charlene Oropeza WPtel: [address] [facility] b [id number]: Javy Rasta WPtel: [address] [facility] 202b [id number]: Javy Rasta WPtel: [address] [facility] [facility] [id number]: Javy Rasta WPtel: [address] [facility] [id number]: Javy Rasta WPtel: [address] [facility] [id number]: Pending Gynecology Referral InformationReferral ProcessedReferral: Pending Pulmonology Referral InformationReferralProcessed Referral: Pending Psychiatry Referral InformationReferralInitiatedReferral: Pending Respiratory Services Referral InformationReferralInitiatedReferral: Pending Ophthalmology Referral InformationReferralInitiatedReferral: [facility] WPtel: [address] [place] [address] 200 [id number] USWriter placed a call out to the patient to notify her that it has been recommended that she be seenby a urologist. Patient agreed to be seen, does not have a provider of choice and no transportationissues. Steel Unloader faxed referral and clinical notes to [facility] in [place], [place] near the patient's home. Patient to [...] seen and prefers a provider in the [place] or [place] area. Steel Unloader placed a call out to everyone listed in the area and the only location that was able to accept the patient's insurance was [facility] [address] [place] [address] and spoke with Maylin. Maylin asked that the patient's referral, face sheet and visit notes be faxed to . Steel Unloader faxed over requested documents. Patient appointment confirmation letter generated and mailed to her home address. Patient to call to schedule an appointment.ProcessedReferral: [facility] WPtel: [address] [place], [place] [id number] USPatient notified that it has been advised that she be seen by Neurology. Patient agreed to be seen and prefers to be seen by a provider in the [place], [place] area. Patient denies any concerns with transportation, and prefers to schedule her own appointment. Steel Unloader placed a call out to [facility] and spoke with Neeraj [...] Assessment and plan reviewed with patient . M25.531-719.43 Right wrist pain routine follow up [...] 500mg BID received new monitor Biotel through [employer] - will send all diabetic supplies to patient 04/14/2020 [...] anxiety and depressed mood routine follow up [facility] E03.9-244.9 Hypothyroidism, unspecified cont levothyroxine E78.5-272.4 Hyperlipidemia, [...] 2019 new appt for pap in June 2020-Bebetoedicbekah Eap Specialist-reports pap negative-recordsrequested Z01.89-V72.85 Encounter for screening for [...]
--- OUTSIDE RECORDS SUMMARY | 2023-12-07 02:12 | XMS_ITS | CCD ---
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 Census Enumerator Name Role Phone Palomo KING, Anna Primary Care Provider Unav ailable Unavailable Chronic Care Management Unavaila ble Summary Purpose DataExchange Insurance Providers Payer name Policy type / Coverage type Covered green party ID Effective Begin Date Effective End Date [facility] [id number] Unknown Unknown Family history Mother Diagnosis Age [...] 05/31/2018 Education level Unknown Some High School 10th05/31/20182422IzdcvysjwxIsseohjQwxetmzyer94/29/2018Tobacco historySNOMED CT: 678368494Oys never smoked or chewed vyixuvz5905/31/2018Alcohol historySNOMED CT: 979429656Ducys drinks ibizdhx2805/31/2018Has the patient ever used illegal drugs? UnknownHas never used illegal drugs05/31/2018DNR Order/ Advanced Directive UnknownFull Code05/31/2018 Allergies, Adverse Reactions, Alerts Substance Reaction Codes Entered Date Inactivated Date Status *No known food allergies Xivhalj4509/06/2018No Inactive DateActiveMethylprednisolonehivesRxNorm: 6902 09/06/2018No Inactive DateActive Problems Condition Codes Effective Dates Condition St atus Hypertensive heart disease with heart fa ilure ICD-10: I11.0 ICD-9: 402.9107/ActiveRight wrist painICD-10: M25.531 ICD-9: 719.4308/09/2020ActiveType 2 diabetes mellitus with peripheral neuropathy ICD-10: E11.42 ICD-9: 250.6002/Active(Z12.11-V76.51) Encounter for screening for malignant neoplasm of colonICD-10: Z12.11 ICD-9: V76.5107Active(Z12.31-V76.12) Encounter for screening mammogram for malignant neoplasm of breastICD-10: Z12.31 ICD-9: V76.1207ActiveChronic kidney disease, unspecifiedICD-10: N18.9 ICD-9: 585.909/ActiveAdult BMI 50.0-59.9 kg/sq mICD-10: Z68.43 ICD-9: V85.4308ActiveEssential [...] ICD-9: 356.908ActivePatient Not SeenICD-10: UXZ.01 ICD-9: XZ0.107ActiveOther meterman (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ICD-10: Z79.899 ICD-9: V58.6907/ActiveChest [...] Instructions omeprazole 20 mg capsule,delayed release RxNorm: 188494 TAKE 1 CAPSULE BY MOUTH EVERY DAY 05/14/20 20 2020 Inactive metformin 500 mg tablet RxNorm: 670463 1 Tablet(s) Oral every day 05/12/20 20 2019 Inactive True Metrix Glucose Test Strip RxNorm: 1 Test Strips Miscellaneous two times a day as needed 04/17/20 No Stop Date Active metformin 500 mg tablet RxNorm: 996633 1 Tablet(s) Oral every day 04/17/20 20 2019 Inactive diclofenac sodium 75 mg tablet,delayed release RxNorm: 917455 1 Tablet(s) PO BID 04/14/20 20 2021 Inactive This refill negates all other refills of this medication Sudafed 12 Hour 120 mg tablet,extended release RxNorm: 1105255 TAKE 1 TABLET BY MOUTH EVERY 12 HOURS NEEDED 03/14/20 20 2019 Inactive True Metrix Glucose Test Strip RxNorm: 1 Test Strips Miscellaneous every morning 03/13/20 20 2019 Inactive 100/container loperamide 2 mg tablet RxNorm: 027525 1 Tablet(s) Oral as needed take one tablet after each loose stool, maximum of 8 tablets in 24 hours 02/22/20 20 2019 Inactive True Metrix Glucose Test Strip RxNorm: 1 Test Strips Miscellaneous QAM 02/22/20 20 2019 Inactive 100/container cetirizine 10 mg tablet RxNorm: 0189444 1 Tablet(s) PO daily 01/17/20 20 2019 Inactive levothyroxine 50 mcg tablet RxNorm: 401155 1 Tablet(s) PO daily 01/17/20 2020 Inactive gabapentin 300 mg capsule RxNorm: 592862 1 Capsule(s) PO TID 01/17/20 20 2019 Inactive loperamide 2 mg tablet RxNorm: 742722 1 Tablet(s) Oral as needed take one tablet after each loose stool, maximum of 8 tablets in 24 hours 01/17/20 20 2019 Inactive quetiapine 100 mg tablet RxNorm: 974661 1 Tablet(s) Oral every night at bedtime 01/17/20 20 2019 Inactive lisinopril 2.5 mg tablet RxNorm: 928273 1 Tablet(s) PO daily 01/15/20 20 2020 Inactive Singulair 10 mg tablet RxNorm: 546098 1 Tablet(s) PO daily 01/15/20 20 2020 Inactive levothyroxine 50 mcg tablet RxNorm: 360620 1 Tablet(s) PO daily 01/15/20 20 2019 Inactive gabapentin 300 mg capsule RxNorm: 329621 1 Capsule(s) PO TID 01/15/20 20 2019 Inactive cetirizine 10 mg tablet RxNorm: 8120680 1 Tablet(s) PO daily 01/15/20 20 2019 Inactive gentamicin 0.3 % eye drops RxNorm: 530028 1 Drop(s) ophthalmic (eye) four times a day 12/29/19 20 2019 Inactive gentamicin 0.3 % eye drops RxNorm: 281943 1 Drop(s) ophthalmic (eye) four times a day 12/29/19 20 2019 Inactive gentamicin 0.3 % eye drops RxNorm: 199416 1 Drop(s) ophthalmic (eye) four times a day 12/29/19 20 2019 Inactive hydrochlorothiazide 25 mg tablet RxNorm: 351413 1 Tablet(s) Oral every day 12/21/19 20 2019 Inactive Sudafed 12 Hour 120 mg tablet,extended release RxNorm: 6982952 TAKE (1) TABLET BY MOUTH EVERY 12 HOURS NEEDED 12/21/19 20 2019 Inactive loperamide 2 mg tablet RxNorm: 993678 1 Tablet(s) Oral as needed take one tablet after each loose stool, maximum of 8 tablets in 24 hours 12/11/19 20 2019 Inactive loperamide 2 mg tablet RxNorm: 496648 1 Tablet(s) Oral as needed take one tablet after each loose stool, maximum of 8 tablets in 24 hours 12/11/19 20 2019 Inactive atorvastatin 40 mg tablet RxNorm: 602234 1 Tablet(s) Oral every day 11/29/19 20 2020 Inactive sertraline 100 mg tablet RxNorm: 934273 1 Tablet(s) Oral 11/28/19 20 2019 Inactive quetiapine 100 mg tablet RxNorm: 523062 1 Tablet(s) Oral every night at bedtime 11/28/19 20 2019 Inactive omeprazole 20 mg capsule,delayed release RxNorm: 104933 1 Capsule(s) Oral every day 11/20/19 20 2019 Inactive amoxicillin 250 mg capsule RxNorm: 773945 1 Capsule(s) Oral three times a day 11/07/19 20 2019 Inactive multivitamin with iron-mineral tablet RxNorm: 1 Tablet(s) Oral every day 10/29/19 20 2021 Inactive cetirizine 10 mg tablet RxNorm: 7619746 1 Tablet(s) PO daily 10/20/19 20 2019 Inactive This refill negates all other refills of this medication. Please do not auto refill Singulair 10 mg tablet RxNorm: 496679 1 Tablet(s) PO daily 10/20/19 20 2019 Inactive This refill negates all other refills of this medication gabapentin 300 mg capsule RxNorm: 313755 1 Capsule(s) PO TID 10/20/19 20 2019 Inactive lisinopril 2.5 mg tablet RxNorm: 202285 1 Tablet(s) PO daily 10/20/19 20 2019 Inactive levothyroxine 50 mcg tablet RxNorm: 195415 1 Tablet(s) PO daily 10/20/19 20 2019 Inactive This refill negates all other refills of this medication fenugreek seed extract 500 mg capsule RxNorm: 1 Capsule(s) Oral three times a day 10/17/19 20 2021 Inactive hydrochlorothiazide 25 mg tablet RxNorm: 140245 1 Tablet(s) Oral every day 10/17/19 20 2019 Inactive Alcohol Prep Pads RxNorm: 537846 1 Patch TOP QAM 10/16/19 20 2020 Inactive loperamide 2 mg tablet RxNorm: 247704 1 Tablet(s) Oral as needed take one [...] 2019 Inactive hydrochlorothiazide 25 mg tablet RxNorm: 301240 1 Tablet(s) Oral every day 09/19/202019 Inactive Sudafed 12 Hour 120 mg tablet,extended release RxNorm: 5130125 1 Tablet(s) Oral every 12 hours as needed 09/11/20 19 2018 Inactive omeprazole 20 mg capsule,delayed release RxNorm: 941518 1 Capsule(s) Oral every day 09/07/20 19 2019 Inactive Sudafed 12 Hour 120 mg tablet,extended release RxNorm: 4172916 1 Tablet(s) Oral every 12 hours as needed 09/04/20 19 2018 Inactive pantoprazole 40 mg tablet,delayed release RxNorm: 004060 1 Tablet(s) Oral every day 08/24/20 19 2018 Inactive discontinue any other H2Blkr. and PPI albuterol sulfate 2.5 mg/3 mL (0.083 %) solution for nebulization RxNorm: 396857 1 Vial Inhalation every four hours as needed as needed for dyspnea 08/17/20 19 2019 Inactive 60/box. This refill negates all other refills of this medication. Please do not fill early. Please do not auto refill. Symbicort 160 mcg-4.5 mcg/actuation HFA aerosol inhaler RxNorm: 2224787 2 Puff(s) INH BID 08/17/20 No Stop Date Active Alcohol Prep Pads RxNorm: 199544 1 Patch TOP QAM 08/17/20 19 2019 Inactive Ventolin HFA 90 mcg/actuation aerosol inhaler RxNorm: 083803 2 Puff(s) INH QID 08/09/20 19 2019 Inactive Please do not fill early. Please do not auto refill. This refill negates all other refills of this medication True Metrix Glucose Test Strip RxNorm: 1 Test Strips Miscellaneous QAM 08/09/20 19 2019 Inactive 100/container atorvastatin 40 mg tablet RxNorm: 256909 1 Tablet(s) Oral every day 07/04/20 19 2019 Inactive levmetamfetamine 50 mg nasal inhaler RxNorm: 1 Unit(s) NASAL Q3-4H Do not use more than every 3 hours or 8 times/24hours 06/26/20 19 2021 Inactive Please do not auto refill. This refill negates all other refills of this medication buspirone 7.5 mg tablet RxNorm: 360333 1 Tablet(s) PO BID 06/26/20 19 2020 Inactive This refill negates all other refills of this medication hydrochlorothiazide 12.5 mg tablet RxNorm: 966653 1 Tablet(s) PO QAM 06/26/20 19 2019 Inactive Ventolin HFA 90 mcg/actuation aerosol inhaler RxNorm: 057305 2 Puff(s) INH QID 06/26/20 19 2018 Inactive Please do not fill early. Please do not auto refill. This refill negates all other refills of this medication Singulair 10 mg tablet RxNorm: 093213 1 Tablet(s) PO daily 06/26/20 19 2019 Inactive This refill negates all other refills of this medication cetirizine 10 mg tablet RxNorm: 6410449 1 Tablet(s) PO daily 06/26/20 19 2019 Inactive This refill negates all other refills of this medication. Please do not auto refill levothyroxine 50 mcg tablet RxNorm: 889753 1 Tablet(s) PO daily 06/26/20 19 2019 Inactive This refill negates all other refills of this medication diclofenac sodium 75 mg tablet,delayed release RxNorm: 248214 1 Tablet(s) PO BID 06/26/20 19 2019 Inactive This refill negates all other refills of this medication ranitidine 150 mg tablet RxNorm: 073977 1 Tablet(s) PO BID 06/26/20 19 2018 Inactive This refill negates all other refills of this medication Calcium 600-D3 Plus (mag-zinc) 600 mg calcium-800 unit-50 mg tablet RxNorm: 1 Tablet(s) PO daily take an additonal tablet for itching. 06/26/202018 Inactive This refill negates all other refills of this medication albuterol sulfate 2.5 mg/3 mL (0.083 %) solution for nebulization RxNorm: 097380 1 Vial INH QID 06/26/20 19 2018 Inactive 60/box. This refill negates all other refills of this medication. Please do not fill early. Please do not auto refill. lisinopril 2.5 mg tablet RxNorm: 793203 1 Tablet(s) PO daily 06/21/20 19 2019 Inactive gabapentin 300 mg capsule RxNorm: 669268 1 Capsule(s) PO TID 06/21/20 19 2019 Inactive atorvastatin 20 mg tablet RxNorm: 946847 1 Tablet(s) PO QHS 06/07/20 19 2018 Inactive This refill negates all other refills of this medication TRUEplus Lancets 30 gauge RxNorm: 1 Lancets Miscellaneous QAM 05/29/20 19 2018 Inactive 100/box gabapentin 300 mg capsule RxNorm: 847673 1 Capsule(s) PO TID 05/03/20 19 2018 Inactive Flintstones Complete (iron) 18 mg iron chewable tablet RxNorm: 1 Tablet(s) PO daily 04/04/202021 Inactive This refill negates all other refills of this medication gabapentin 300 mg capsule RxNorm: 791343 1 Capsule(s) PO TID as needed 02/01/202018 Inactive True Metrix Glucose Test Strip RxNorm: 1 Test Strips Miscellaneous QA 02/01/202018 Inactive 100/container Alcohol Prep Pads RxNorm: 487273 1 Patch TOP QAM 02/01/20 19 2018 Inactive TRUEplus Lancets 30 gauge RxNorm: 1 Lancets Miscellaneous QAM 02/01/202018 Inactive 100/box lisinopril 2.5 mg tablet RxNorm: 904019 1 Tablet(s) PO daily 12/28/192018 Inactive ranitidine 150 mg tablet RxNorm: 861263 1 Tablet(s) PO BID 10/21/192018 Inactive This refill negates all other refills of this medication albuterol sulfate 2.5 mg/3 mL (0.083 %) solution for nebulization RxNorm: 754285 1 Vial INH QID 10/21/192018 Inactive 60/box. [...] this medication gabapentin 300 mg capsule RxNorm: 048413 1 Capsule(s) PO TID as needed 10/21/192018 Inactive atorvastatin 20 mg tablet RxNorm: 470387 1 Tablet(s) PO QHS 10/21/192018 Inactive This refill negates all other refills of this medication trazodone 50 mg tablet RxNorm: 910616 1 Tablet(s) PO QHS 10/21/1901/ 2019 Inactive This refill negates all other refills of this medication Ventolin HFA 90 mcg/actuation aerosol inhaler RxNorm: 188392 2 Puff(s) INH QID 10/21/192018 Inactive Please do not fill early. Please do not auto refill. This refill negates all other refills of this medication Calcium 600-D3 Plus 600 mg calcium-800 unit-50 mg tablet RxNorm: 1 Tablet(s) PO daily take an additonal tablet for itching. 10/21/19 19 2018 Inactive This refill negates all other refills of this medication Singulair 10 mg tablet RxNorm: 737364 1 Tablet(s) PO daily 10/21/192018 Inactive This refill negates all other refills of this medication buspirone 7.5 mg tablet RxNorm: 904940 1 Tablet(s) PO BID 10/21/192018 Inactive This refill negates all other refills of this medication diclofenac sodium 75 mg tablet,delayed release RxNorm: 132318 1 Tablet(s) PO BID 10/21/192018 Inactive This refill negates all other refills of this medication hydrochlorothiazide 12.5 mg tablet RxNorm: 257224 1 Tablet(s) PO QAM 10/21/19 19 2018 Inactive metoprolol succinate ER 50 mg tablet,extended release 24 hr RxNorm: 719000 1 Tablet(s) PO daily 10/21/192018 Inactive This refill negates all other refills of this medication levothyroxine 50 mcg tablet RxNorm: 522344 1 Tablet(s) PO daily 10/21/192018 Inactive This refill negates all other refills of this medication cetirizine 10 mg tablet RxNorm: 1419835 1 Tablet(s) PO daily 10/21/192018 Inactive This refill negates all other refills of this medication. Please do not auto refill Flintstones Complete (iron) 18 mg iron chewable tablet RxNorm: 1 Tablet(s) PO daily 10/21/192018 Inactive This refill negates all other refills of this medication buspirone 7.5 mg tablet RxNorm: 881102 1 Tablet(s) PO BID 10/12/19 19 2018 Inactive cetirizine 10 mg tablet RxNorm: 2286840 1 Tablet(s) PO daily 09/28/20 18 2018 Inactive Guaiasorb DM 10 mg-100 mg/5 mL oral liquid RxNorm: 743655 10 Milliliter(s) PO As needed every 4 hr 09/24/20 18 2018 Inactive Vicks Vaporub 4.7 %-1.2 %-2.6 % topical ointment RxNorm: 6030549 1 Application TOP TID 09/24/20 18 2018 Inactive levmetamfetamine 50 mg nasal inhaler RxNorm: 1 Unit(s) NASAL Q3-4H 09/24/20 18 2017 Inactive sertraline 50 mg tablet RxNorm: 786342 1 Tablet(s) PO daily 09/09/20 18 2018 Inactive Please note dose trazodone 50 mg tablet RxNorm: 536880 1 Tablet(s) PO QHS 09/06/20 18 2018 Inactive sertraline 50 mg tablet RxNorm: 077083 1 Tablet(s) PO daily 09/06/20 18 2017 Inactive amoxicillin 500 mg tablet RxNorm: 549321 1 Tablet(s) PO Q12H 08/31/20 18 2017 Inactive albuterol sulfate 2.5 mg/3 mL (0.083 %) solution for nebulization RxNorm: 810008 1 Vial INH QID 08/10/20 18 2018 Inactive 60/box. Please do not fill early. Please do not auto refill. Prozac 10 mg capsule RxNorm: 319253 1 Capsule(s) PO daily 08/09/20 18 2017 Inactive buspirone 7.5 mg tablet RxNorm: 020844 1 Tablet(s) PO BID 08/09/20 18 2018 Inactive gabapentin 300 mg capsule RxNorm: 581849 1 Capsule(s) PO TID as needed 08/01/20 18 2018 Inactive hydrochlorothiazide 12.5 mg tablet RxNorm: 994857 1 Tablet(s) PO QAM 08/01/20 18 2018 Inactive ranitidine 150 mg tablet RxNorm: 676794 1 Tablet(s) PO BID 08/01/20 18 2018 Inactive Macrobid 100 mg capsule RxNorm: 226656 1 Capsule(s) PO Q12H 06/21/20 18 2017 Inactive Singulair 10 mg tablet RxNorm: 344932 1 Tablet(s) PO daily 06/14/20 18 2018 Inactive Ventolin HFA 90 mcg/actuation aerosol inhaler RxNorm: 1605751 2 Puff(s) INH QID 06/14/20 18 2018 Inactive Singulair 10 mg tablet RxNorm: 736866 1 Tablet(s) PO daily 06/14/20 18 2017 Inactive buspirone 7.5 mg tablet RxNorm: 417889 1 Tablet(s) PO BID 06/14/20 18 2017 Inactive Prozac 10 mg capsule RxNorm: 049993 1 Capsule(s) PO daily 06/14/20 18 2017 Inactive Neilmed Pediatric Sinus Rinse Refill packet RxNorm: 1 Unit Dose NASAL PRN 05/31/20 18 2021 Inactive diclofenac sodium 75 mg tablet,delayed release RxNorm: 125967 1 Tablet(s) PO BID 05/31/20 18 2017 Inactive lisinopril 2.5 mg tablet RxNorm: 812397 1 Tablet(s) PO daily 05/31/20 18 2017 Inactive metoprolol succinate ER 50 mg tablet,extended release 24 hr RxNorm: 244561 1 Tablet(s) PO daily 05/31/20 18 2017 Inactive levothyroxine 50 mcg tablet RxNorm: 317954 1 Tablet(s) PO daily 05/31/20 18 2017 Inactive TRUEplus Lancets 30 gauge RxNorm: 1 Lancets Miscellaneous QAM 05/31/20 18 2017 Inactive 100/box Ventolin HFA 90 mcg/actuation aerosol inhaler RxNorm: 958747 2 Puff(s) INH QID 05/31/20 18 2017 Inactive Aleve 220 mg capsule RxNorm: 5494408 1 Capsule(s) PO BID 05/31/20 18 2018 Inactive ranitidine 150 mg tablet RxNorm: 542228 1 Tablet(s) PO BID 05/31/20 18 2017 Inactive gabapentin 300 mg capsule RxNorm: 267875 1 Capsule(s) PO TID as needed 05/31/20 18 2017 Inactive atorvastatin 20 mg tablet RxNorm: 944092 1 Tablet(s) PO QHS 05/31/20 18 2017 Inactive True Metrix Glucose Test Strip RxNorm: 1 Test Strips [facility] QAM 05/31/20 18 2017 Inactive 50/container Calcium 600-D3 Plus 600 mg calcium-800 unit-50 mg tablet RxNorm: 1 Tablet(s) PO daily take an additonal tablet for itching. 05/31/20 18 2017 Inactive hydrochlorothiazide 12.5 mg tablet RxNorm: 705801 1 Tablet(s) PO QAM 05/31/20 18 2017 Inactive Flintstones Complete (iron) 18 mg iron chewable tablet RxNorm: 1 Tablet(s) PO daily 05/31/20 18 2017 Inactive d-mannose oral powder RxNorm: PO 18 2021 Inactive True Metrix Glucose Meter RxNorm: miscellaneous 08/17/20 19 2018 Inactive sertraline 50 mg tablet RxNorm: 762790 1 Tablet(s) PO daily 11/28/19 20 2019 Inactive loperamide 2 mg tablet RxNorm: 000721 oral 09/29/20 19 2018 Inactive Symbicort 160 mcg-4.5 mcg/actuation HFA aerosol inhaler RxNorm: 4232988 2 Puff(s) INH BID 08/17/20 19 2018 Inactive Medication Administered No Medication Administered data Procedures Procedure Codes Date Electrocardiogram CPT-4: 31913 05/14/2020 Tobacco Assessment/Screening CPT-4: TCA [facility] CPT-4: DFRA01/01/2020Functional AssessmentCPT-4: DFA01/01/2020[place] Fany AssessmentCPT-4: DSWA11/28/2019Patient Health QuestionnaireCPT-4: DPHQ11/28/2019 [place] Fany AssessmentCPT-4: DSWA10/17/2019HypertensionCPT-4: HTN10/17/[address]: 807104383 CPT-4: DFRA09/19/2019Functional AssessmentCPT-4: DFA111/20/2018Urinalysis, dip stickCPT-4: 5302388Tobacco Assessment/ScreeningCPT-4: TCA05/24/2019 Patient Health QuestionnaireCPT-4: DPHQ05/24/2019AHA/REBECCA Classification AssessmentCPT-4: DAHA04/25/2019Controlled Substance ReportCPT-4: CTRSU04/25/2019 Urinalysis, dip stickCPT-4: 5339259Urinalysis, dip stickCPT-4: 43794 03/28/20191452H0E-KlouytrqhknmuqdJTT-0: 42817YujsibhU7T-VobcwzkskpxtlweMUO-3: 42168 IcneqcmD1R-ObpsxjnxbuzujpgBGM-9: 29838YckhpluXpfuelphdm ReferralSNOMED CT: 710878332 CPT-4: M97Vstplcj Reason For Visit No Reason For Visit data Plan of Care Planned Activity Notes Codes Status Date Referral: Pending Gynecology Referral Informatio n Referral ProcessedReferral: Pending Pulmonology Referral InformationReferralProcessed Referral: Pending Psychiatry Referral InformationReferralInitiatedReferral: Pending Respiratory Services Referral InformationReferralInitiatedReferral: Pending Ophthalmology Referral InformationReferralInitiatedReferral: [facility] [address] USWriter placed a call out to the patient to notify her that it has been recommended that she be seenby a urologist. Patient agreed to be seen, does not have a provider of choice and no transportationissues. Laborer Tanbark faxed referral and clinical notes to [facility] in [place], [place] near the patient's home. Patient [...] seen and prefers a provider in the [place] or [place] area. Laborer Tanbark placed a call out to everyone listed in the area and the only location that was able to accept the patient's insurance was [facility] [address] [place] [address] and spoke with Maylin. Maylin asked that the patient's referral, face sheet and visit notes be faxed to . Laborer Tanbark faxed over requested documents. Patient appointment confirmation letter generated and mailed to her home address. Patient to call to schedule an appointment.ProcessedReferral: [facility] WPtel: [address] [place] [address] [place], [place] [id number] USPatient notified that it has been advised that she be seen by Neurology. Patient agreed to be seen and prefers to be seen by a provider in the [place], [place] area. Patient denies any concerns with transportation, and prefers to schedule her own appointment. Laborer Tanbark [facility] [...]
--- OUTSIDE RECORDS SUMMARY | 2023-12-07 02:12 | XMS_ITS | CCD ---
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 Historian Research Assistant Name Role Phone Palomo KING, Anna Primary Care Provider Unav ailable Unavailable Chronic Care Management Unavaila ble Summary Purpose DataExchange Insurance Providers Payer name Policy type / Coverage type Covered green party ID Effective Begin Date Effective End Date [facility] [id number] Unknown Unknown Family history Mother Diagnosis Age [...] 05/31/2018 Education level Unknown Some High School 10th05/31/20183288HengsuooqjWpoyqieZlkmxzhxhh38/29/2018Tobacco historySNOMED CT: 938677173Ipg never smoked or chewed arzxoqk4105/31/2018Alcohol historySNOMED CT: 106841362Krxgg drinks rczqjns0405/31/2018Has the patient ever used illegal drugs? UnknownHas never used illegal drugs05/31/2018DNR Order/ Advanced Directive UnknownFull Code05/31/2018 Allergies, Adverse Reactions, Alerts Substance Reaction Codes Entered Date Inactivated Date Status *No known food allergies Ylwipfy4109/06/2018No Inactive DateActiveMethylprednisolonehivesRxNorm: 6902 09/06/2018No Inactive DateActive Problems [...] ICD-9: 356.908ActivePatient Not SeenICD-10: UXZ.01 ICD-9: XZ0.107ActiveOther senior living (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ICD-10: Z79.899 ICD-9: V58.6907ActiveChest pain, [...] 12 Hour 120 mg tablet,extended release RxNorm: 7915397 TAKE 1 TABLET BY MOUTH EVERY 12 HOURS NEEDED 06/11/20 20 2019 Inactive hydrochlorothiazide 25 mg tablet RxNorm: 783961 TAKE (1) TABLET BY MOUTH EVERY DAY 06/11/20 20 2019 Inactive omeprazole 20 mg capsule,delayed release RxNorm: 315217 TAKE 1 CAPSULE BY MOUTH EVERY DAY 05/14/20 20 2020 Inactive metformin 500 mg tablet RxNorm: 161788 1 Tablet(s) Oral every day 05/12/20 20 2019 Inactive True Metrix Glucose Test Strip RxNorm: 1 Test Strips Miscellaneous two times a day as needed 04/17/20 No Stop Date Active metformin 500 mg tablet RxNorm: 232982 1 Tablet(s) Oral every day 04/17/20 20 2019 Inactive diclofenac sodium 75 mg tablet,delayed release RxNorm: 628856 1 Tablet(s) PO BID 04/14/202021 Inactive This refill negates all other refills of this medication Sudafed 12 Hour 120 mg tablet,extended release RxNorm: 0254934 TAKE 1 TABLET BY MOUTH EVERY 12 HOURS NEEDED 03/14/20 20 2019 Inactive True Metrix Glucose Test Strip RxNorm: 1 Test Strips Miscellaneous every morning 03/13/20 20 2019 Inactive 100/container loperamide 2 mg tablet RxNorm: 106188 1 Tablet(s) Oral as needed take one tablet after each loose stool, maximum of 8 tablets in 24 hours 02/22/20 20 2019 Inactive True Metrix Glucose Test Strip RxNorm: 1 Test Strips Miscellaneous QAM 02/22/20 20 2019 Inactive 100/container cetirizine 10 mg tablet RxNorm: 6032173 1 Tablet(s) PO daily 01/17/20 20 2019 Inactive levothyroxine 50 mcg tablet RxNorm: 054959 1 Tablet(s) PO daily 01/17/20 20 2020 Inactive gabapentin 300 mg capsule RxNorm: 289131 1 Capsule(s) PO TID 01/17/20 20 2019 Inactive loperamide 2 mg tablet RxNorm: 200589 1 Tablet(s) Oral as needed take one tablet after each loose stool, maximum of 8 tablets in 24 hours 01/17/20 20 2019 Inactive quetiapine 100 mg tablet RxNorm: 272778 1 Tablet(s) Oral every night at bedtime 01/17/20 20 2019 Inactive lisinopril 2.5 mg tablet RxNorm: 187889 1 Tablet(s) PO daily 01/15/20 20 2020 Inactive Singulair 10 mg tablet RxNorm: 054644 1 Tablet(s) PO daily 01/15/20 20 2020 Inactive levothyroxine 50 mcg tablet RxNorm: 050325 1 Tablet(s) PO daily 01/15/20 20 2019 Inactive gabapentin 300 mg capsule RxNorm: 687837 1 Capsule(s) PO TID 01/15/20 20 2019 Inactive cetirizine 10 mg tablet RxNorm: 6667168 1 Tablet(s) PO daily 01/15/20 20 2019 Inactive gentamicin 0.3 % eye drops RxNorm: 313939 1 Drop(s) ophthalmic (eye) four times a day 12/29/19 20 2019 Inactive gentamicin 0.3 % eye drops RxNorm: 379228 1 Drop(s) ophthalmic (eye) four times a day 12/29/19 20 2019 Inactive gentamicin 0.3 % eye drops RxNorm: 003340 1 Drop(s) ophthalmic (eye) four times a day 12/29/19 20 2019 Inactive hydrochlorothiazide 25 mg tablet RxNorm: 122389 1 Tablet(s) Oral every day 12/21/19 20 2019 Inactive Sudafed 12 Hour 120 mg tablet,extended release RxNorm: 9103566 TAKE (1) TABLET BY MOUTH EVERY 12 HOURS NEEDED 12/21/19 20 2019 Inactive loperamide 2 mg tablet RxNorm: 106208 1 Tablet(s) Oral as needed take one tablet after each loose stool, maximum of 8 tablets in 24 hours 12/11/19 20 2019 Inactive loperamide 2 mg tablet RxNorm: 368067 1 Tablet(s) Oral as needed take one tablet after each loose stool, maximum of 8 tablets in 24 hours 12/11/19 20 2019 Inactive atorvastatin 40 mg tablet RxNorm: 026632 1 Tablet(s) Oral every day 11/29/19 20 2020 Inactive quetiapine 100 mg tablet RxNorm: 974607 1 Tablet(s) Oral every night at bedtime 11/28/19 20 2019 Inactive sertraline 100 mg tablet RxNorm: 525325 1 Tablet(s) Oral 11/28/19 20 2019 Inactive omeprazole 20 mg capsule,delayed release RxNorm: 852768 1 Capsule(s) Oral every day 11/20/19 20 2019 Inactive amoxicillin 250 mg capsule RxNorm: 820308 1 Capsule(s) Oral three times a day 11/07/19 20 2019 Inactive multivitamin with iron-mineral tablet RxNorm: 1 Tablet(s) Oral every day 10/29/19 20 2021 Inactive cetirizine 10 mg tablet RxNorm: 5445599 1 Tablet(s) PO daily 10/20/19 20 2019 Inactive This refill negates all other refills of this medication. Please do not auto refill Singulair 10 mg tablet RxNorm: 508403 1 Tablet(s) PO daily 10/20/19 20 2019 Inactive This refill negates all other refills of this medication gabapentin 300 mg capsule RxNorm: 996638 1 Capsule(s) PO TID 10/20/19 20 2019 Inactive lisinopril 2.5 mg tablet RxNorm: 843789 1 Tablet(s) PO daily 10/20/19 20 2019 Inactive levothyroxine 50 mcg tablet RxNorm: 997734 1 Tablet(s) PO daily 10/20/19 20 2019 Inactive This refill negates all other refills of this medication fenugreek seed extract 500 mg capsule RxNorm: 1 Capsule(s) Oral three times a day 10/17/19 20 2021 Inactive hydrochlorothiazide 25 mg tablet RxNorm: 617258 1 Tablet(s) Oral every day 10/17/19 20 2019 Inactive Alcohol Prep Pads RxNorm: 238144 1 Patch TOP QAM 10/16/19 20 2020 Inactive loperamide 2 mg tablet RxNorm: 642634 1 Tablet(s) Oral as needed take one [...] 2019 Inactive hydrochlorothiazide 25 mg tablet RxNorm: 980180 1 Tablet(s) Oral every day 09/19/20 19 2019 Inactive Sudafed 12 Hour 120 mg tablet,extended release RxNorm: 1095804 1 Tablet(s) Oral every 12 hours as needed 09/11/20 19 2018 Inactive omeprazole 20 mg capsule,delayed release RxNorm: 715605 1 Capsule(s) Oral every day 09/07/20 19 2019 Inactive Sudafed 12 Hour 120 mg tablet,extended release RxNorm: 1909088 1 Tablet(s) Oral every 12 hours as needed 09/04/20 19 2018 Inactive pantoprazole 40 mg tablet,delayed release RxNorm: 185821 1 Tablet(s) Oral every day 08/24/20 19 2018 Inactive discontinue any other H2Blkr. and PPI albuterol sulfate 2.5 mg/3 mL (0.083 %) solution for nebulization RxNorm: 979388 1 Vial Inhalation every four hours as needed as needed for dyspnea 08/17/202019 Inactive 60/box. This refill negates all other refills of this medication. Please do not fill early. Please do not auto refill. Symbicort 160 mcg-4.5 mcg/actuation HFA aerosol inhaler RxNorm: 5768769 2 Puff(s) INH BID 08/17/20 No Stop Date Active Alcohol Prep Pads RxNorm: 734412 1 Patch TOP QAM 08/17/202019 Inactive Ventolin HFA 90 mcg/actuation aerosol inhaler RxNorm: 177388 2 Puff(s) INH QID 08/09/202019 Inactive Please do not fill early. Please do not auto refill. This refill negates all other refills of this medication True Metrix Glucose Test Strip RxNorm: 1 Test Strips Miscellaneous QAM 08/09/20 19 2019 Inactive 100/container atorvastatin 40 mg tablet RxNorm: 229869 1 Tablet(s) Oral every day 07/04/20 19 2019 Inactive levmetamfetamine 50 mg nasal inhaler RxNorm: 1 Unit(s) NASAL Q3-4H Do not use more than every 3 hours or 8 times/24hours 06/26/20 19 2021 Inactive Please do not auto refill. This refill negates all other refills of this medication buspirone 7.5 mg tablet RxNorm: 538694 1 Tablet(s) PO BID 06/26/20 19 2020 Inactive This refill negates all other refills of this medication hydrochlorothiazide 12.5 mg tablet RxNorm: 512763 1 Tablet(s) PO QAM 06/26/20 19 2019 Inactive Ventolin HFA 90 mcg/actuation aerosol inhaler RxNorm: 926382 2 Puff(s) INH QID 06/26/20 19 2018 Inactive Please do not fill early. Please do not auto refill. This refill negates all other refills of this medication Singulair 10 mg tablet RxNorm: 632740 1 Tablet(s) PO daily 06/26/20 19 2019 Inactive This refill negates all other refills of this medication cetirizine 10 mg tablet RxNorm: 0204435 1 Tablet(s) PO daily 06/26/20 19 2019 Inactive This refill negates all other refills of this medication. Please do not auto refill levothyroxine 50 mcg tablet RxNorm: 892836 1 Tablet(s) PO daily 06/26/202019 Inactive This refill negates all other refills of this medication diclofenac sodium 75 mg tablet,delayed release RxNorm: 923248 1 Tablet(s) PO BID 06/26/202019 Inactive This refill negates all other refills of this medication ranitidine 150 mg tablet RxNorm: 067622 1 Tablet(s) PO BID 06/26/20 19 2018 Inactive This refill negates all other refills of this medication Calcium 600-D3 Plus (mag-zinc) 600 mg calcium-800 unit-50 mg tablet RxNorm: 1 Tablet(s) PO daily take an additonal tablet for itching. 06/26/202018 Inactive This refill negates all other refills of this medication albuterol sulfate 2.5 mg/3 mL (0.083 %) solution for nebulization RxNorm: 228415 1 Vial INH QID 06/26/20 19 2018 Inactive 60/box. This refill negates all other refills of this medication. Please do not fill early. Please do not auto refill. lisinopril 2.5 mg tablet RxNorm: 175177 1 Tablet(s) PO daily 06/21/20 19 2019 Inactive gabapentin 300 mg capsule RxNorm: 885329 1 Capsule(s) PO TID 09/19/2019 Inactive atorvastatin 20 mg tablet RxNorm: 593593 1 Tablet(s) PO QHS 06/07/20 19 2018 Inactive This refill negates all other refills of this medication TRUEplus Lancets 30 gauge RxNorm: 1 Lancets Miscellaneous QAM 05/29/20 19 2018 Inactive 100/box gabapentin 300 mg capsule RxNorm: 337321 1 Capsule(s) PO TID 05/03/20 19 2018 Inactive Flnickolas Complete (iron) 18 mg iron chewable tablet RxNorm: 1 Tablet(s) PO daily 04/04/202021 Inactive This refill negates all other refills of this medication gabapentin 300 mg capsule RxNorm: 445358 1 Capsule(s) PO TID as needed 02/01/20 19 2018 Inactive True Metrix Glucose Test Strip RxNorm: 1 Test Strips Miscellaneous QAM 02/01/20 19 2018 Inactive 100/container Alcohol Prep Pads RxNorm: 428413 1 Patch TOP QAM 02/01/20 19 2018 Inactive TRUEplus Lancets 30 gauge RxNorm: 1 Lancets Miscellaneous QAM 02/01/20 19 2018 Inactive 100/box lisinopril 2.5 mg tablet RxNorm: 669928 1 Tablet(s) PO daily 12/28/19 19 2018 Inactive ranitidine 150 mg tablet RxNorm: 116625 1 Tablet(s) PO BID 10/21/192018 Inactive This refill negates all other refills of this medication albuterol sulfate 2.5 mg/3 mL (0.083 %) solution for nebulization RxNorm: 264248 1 Vial INH QID 10/21/192018 Inactive 60/box. [...] this medication gabapentin 300 mg capsule RxNorm: 090433 1 Capsule(s) PO TID as needed 10/21/19 19 2018 Inactive atorvastatin 20 mg tablet RxNorm: 681591 1 Tablet(s) PO QHS 10/21/19 19 2018 Inactive This refill negates all other refills of this medication trazodone 50 mg tablet RxNorm: 743987 1 Tablet(s) PO QHS 10/21/19 19 2018 Inactive This refill negates all other refills of this medication Ventolin HFA 90 mcg/actuation aerosol inhaler RxNorm: 082699 2 Puff(s) INH QID 10/21/192018 Inactive Please do not fill early. Please do not auto refill. This refill negates all other refills of this medication Calcium 600-D3 Plus 600 mg calcium-800 unit-50 mg tablet RxNorm: 1 Tablet(s) PO daily take an additonal tablet for itching. 10/21/19 19 2018 Inactive This refill negates all other refills of this medication Singulair 10 mg tablet RxNorm: 473544 1 Tablet(s) PO daily 10/21/192018 Inactive This refill negates all other refills of this medication buspirone 7.5 mg tablet RxNorm: 223116 1 Tablet(s) PO BID 10/21/192018 Inactive This refill negates all other refills of this medication diclofenac sodium 75 mg tablet,delayed release RxNorm: 635821 1 Tablet(s) PO BID 10/21/192018 Inactive This refill negates all other refills of this medication hydrochlorothiazide 12.5 mg tablet RxNorm: 803020 1 Tablet(s) PO QAM 10/21/19 19 2018 Inactive metoprolol succinate ER 50 mg tablet,extended release 24 hr RxNorm: 753590 1 Tablet(s) PO daily 10/21/19 19 2018 Inactive This refill negates all other refills of this medication levothyroxine 50 mcg tablet RxNorm: 137896 1 Tablet(s) PO daily 10/21/19 19 2018 Inactive This refill negates all other refills of this medication cetirizine 10 mg tablet RxNorm: 2953440 1 Tablet(s) PO daily 10/21/19 19 2018 Inactive This refill negates all other refills of this medication. Please do not auto refill Flintstones Complete (iron) 18 mg iron chewable tablet RxNorm: 1 Tablet(s) PO daily 10/21/19 19 2018 Inactive This refill negates all other refills of this medication buspirone 7.5 mg tablet RxNorm: 505381 1 Tablet(s) PO BID 10/12/19 19 2018 Inactive cetirizine 10 mg tablet RxNorm: 2964490 1 Tablet(s) PO daily 09/28/20 18 2018 Inactive Guaiasorb DM 10 mg-100 mg/5 mL oral liquid RxNorm: 618659 10 Milliliter(s) PO As needed every 4 hr 09/24/20 18 2018 Inactive Vicks Vaporub 4.7 %-1.2 %-2.6 % topical ointment RxNorm: 3260745 1 Application TOP TID 09/24/20 18 2018 Inactive levmetamfetamine 50 mg nasal inhaler RxNorm: 1 Unit(s) NASAL Q3-4H 09/24/20 18 2017 Inactive sertraline 50 mg tablet RxNorm: 550157 1 Tablet(s) PO daily 09/09/20 18 2018 Inactive Please note dose trazodone 50 mg tablet RxNorm: 140221 1 Tablet(s) PO QHS 09/06/20 18 2018 Inactive sertraline 50 mg tablet RxNorm: 261106 1 Tablet(s) PO daily 09/06/20 18 2017 Inactive amoxicillin 500 mg tablet RxNorm: 203213 1 Tablet(s) PO Q12H 08/31/20 18 2017 Inactive albuterol sulfate 2.5 mg/3 mL (0.083 %) solution for nebulization RxNorm: 187260 1 Vial INH QID 08/10/20 18 2018 Inactive 60/box. Please do not fill early. Please do not auto refill. Prozac 10 mg capsule RxNorm: 660462 1 Capsule(s) PO daily 08/09/20 18 2017 Inactive buspirone 7.5 mg tablet RxNorm: 219691 1 Tablet(s) PO BID 08/09/20 18 2018 Inactive gabapentin 300 mg capsule RxNorm: 218614 1 Capsule(s) PO TID as needed 08/01/20 18 2018 Inactive hydrochlorothiazide 12.5 mg tablet RxNorm: 537239 1 Tablet(s) PO QAM 08/01/20 18 2018 Inactive ranitidine 150 mg tablet RxNorm: 859699 1 Tablet(s) PO BID 08/01/20 18 2018 Inactive Macrobid 100 mg capsule RxNorm: 139422 1 Capsule(s) PO Q12H 06/21/20 18 2017 Inactive Singulair 10 mg tablet RxNorm: 304859 1 Tablet(s) PO daily 06/14/20 18 2018 Inactive Ventolin HFA 90 mcg/actuation aerosol inhaler RxNorm: 3325693 2 Puff(s) INH QID 06/14/20 18 2018 Inactive Singulair 10 mg tablet RxNorm: 728068 1 Tablet(s) PO daily 06/14/20 18 2017 Inactive buspirone 7.5 mg tablet RxNorm: 592597 1 Tablet(s) PO BID 06/14/20 18 2017 Inactive Prozac 10 mg capsule RxNorm: 294368 1 Capsule(s) PO daily 06/14/20 18 2017 Inactive Neilmed Pediatric Sinus Rinse Refill packet RxNorm: 1 Unit Dose NASAL PRN 05/31/20 18 2021 Inactive diclofenac sodium 75 mg tablet,delayed release RxNorm: 004228 1 Tablet(s) PO BID 05/31/20 18 2017 Inactive lisinopril 2.5 mg tablet RxNorm: 739961 1 Tablet(s) PO daily 05/31/20 18 2017 Inactive metoprolol succinate ER 50 mg tablet,extended release 24 hr RxNorm: 700088 1 Tablet(s) PO daily 05/31/20 18 2017 Inactive levothyroxine 50 mcg tablet RxNorm: 499465 1 Tablet(s) PO daily 05/31/20 18 2017 Inactive TRUEplus Lancets 30 gauge RxNorm: 1 Lancets Miscellaneous QAM 05/31/20 18 2017 Inactive 100/box Ventolin HFA 90 mcg/actuation aerosol inhaler RxNorm: 027154 2 Puff(s) INH QID 05/31/20 18 2017 Inactive Aleve 220 mg capsule RxNorm: 4520832 1 Capsule(s) PO BID 05/31/20 18 2018 Inactive ranitidine 150 mg tablet RxNorm: 187509 1 Tablet(s) PO BID 05/31/20 18 2017 Inactive gabapentin 300 mg capsule RxNorm: 400636 1 Capsule(s) PO TID as needed 05/31/20 18 2017 Inactive atorvastatin 20 mg tablet RxNorm: 898116 1 Tablet(s) PO QHS 05/31/20 18 2017 Inactive True Metrix Glucose Test Strip RxNorm: 1 [facility] 05/31/20 18 2017 Inactive 50/container Calcium 600-D3 Plus 600 mg calcium-800 unit-50 mg tablet RxNorm: 1 Tablet(s) PO daily take an additonal tablet for itching. 05/31/20 18 2017 Inactive hydrochlorothiazide 12.5 mg tablet RxNorm: 216298 1 Tablet(s) PO QAM 05/31/20 18 2017 Inactive Flintstones Complete (iron) 18 mg iron chewable tablet RxNorm: 1 Tablet(s) PO daily 05/31/20 18 2017 Inactive d-mannose oral powder RxNorm: PO 18 2021 Inactive True Metrix Glucose Meter RxNorm: miscellaneous 08/17/20 19 2018 Inactive sertraline 50 mg tablet RxNorm: 704291 1 Tablet(s) PO daily 11/28/19 20 2019 Inactive loperamide 2 mg tablet RxNorm: 907330 oral 09/29/20 19 2018 Inactive Symbicort 160 mcg-4.5 mcg/actuation HFA aerosol inhaler RxNorm: 2474123 2 Puff(s) INH BID 08/17/20 19 2018 Inactive Medication Administered No Medication Administered data Procedures Procedure Codes Date Electrocardiogram CPT-4: 28313 05/14/2020 Tobacco Assessment/Screening CPT-4: TCA Fall Risk Assessment SNOMED CT: 30765384 4 CPT-4: DFRA01/01/2020Functional AssessmentCPT-4: DFA01/01/2020Semmes Fany AssessmentCPT-4: DSWA11/28/2019Patient Health QuestionnaireCPT-4: DPHQ11/28/2019 Bergoo Fany AssessmentCPT-4: DSWA10/17/2019HypertensionCPT-4: HTN10/17/[address]: 735872005 CPT-4: DFRA09/19/2019Functional AssessmentCPT-4: DFA111/20/2018Urinalysis, dip stickCPT-4: 2133723Tobacco Assessment/ScreeningCPT-4: TCA05/24/2019 Patient Health QuestionnaireCPT-4: DPHQ05/24/2019AHA/REBECCA Classification AssessmentCPT-4: DAHA04/25/2019Controlled Substance ReportCPT-4: CTRSU04/25/2019 Urinalysis, dip stickCPT-4: 328804703/28/2019Urinalysis, dip stickCPT-4: 99838 03/28/20199908J7K-NgwzbyirxpalipiLAZ-3: 72034RmsbzuwG4V-KqyuemrgqmfgfjcFLQ-9: 92587 EkvarqxI5M-EmthdjsetrrmbryJTL-0: 54319LyguermK0C-KulvqspaaweprsyCME-0: [address]: 329342581 CPT-4: P67Wncpfyz Reason For Visit No Reason For Visit data Plan of Care Planned Activity Notes Codes Status Date Referral: Pending Gynecology Referral Informatio n Referral ProcessedReferral: Pending Pulmonology Referral InformationReferralProcessed Referral: Pending Psychiatry Referral InformationReferralInitiatedReferral: Pending Respiratory Services Referral InformationReferralInitiatedReferral: Pending Ophthalmology Referral InformationReferralInitiatedReferral: [facility] WPtel: [address] [place] USWriter placed a call out to the patient to notify her that it has been recommended that she be seenby a urologist. Patient agreed to be seen, does not have a provider of choice and no transportationissues. Flavorer faxed referral and clinical notes to [facility] in [place], [place] near the patient's home. Patient to [...] seen and prefers a provider in the [place] or [place] area. Flavorer placed a call out to everyone listed in the area and the only location that was able to accept the patient's insurance was [address] [address] and spoke with Maylin. Maylin asked that the patient's referral, face sheet and visit notes be faxed to . Flavorer faxed over requested documents. Patient appointment confirmation letter generated and mailed to her home address. Patient to call to schedule an appointment.ProcessedReferral: [facility] WPtel: [address] [id number] USPatient notified that it has been advised that she be seen by Neurology. Patient agreed to be seen and prefers to be seen by a provider in the [place], [place] area. Patient denies any concerns with transportation, and prefers to schedule her own appointment. Flavorer [facility] and spoke with Neeraj [...]
--- OUTSIDE RECORDS SUMMARY | 2023-12-07 02:12 | XMS_ITS | CCD ---
Author Name Leena Culver NP Address [address] [place] [address] [address] [place] [address] Phone Organization [facility] Phone Care Team Providers Care Beater Operator Name Role Phone Anna Culver NP Primary Care Provider Unav ailable Unavailable Chronic Care Management Unavaila ble Summary Purpose DataExchange Insurance Providers Payer name Policy type / Coverage type Covered democrat ID Effective Begin Date Effective End Date SUKI MAYO [id number] Unknown Unknown Family history Mother Diagnosis Age [...] 05/31/2018 Education level Unknown Some High School 10th05/31/20185381YljniwmddgZyzhcjlPbcaxgyzsn63/29/2018Tobacco historySNOMED CT: 117258707Ydy never smoked or chewed wvjdzbo2305/31/2018Alcohol historySNOMED CT: 180063100Wvqhe drinks uwflntp5605/31/2018Has the patient ever used illegal drugs? UnknownHas never used illegal drugs05/31/2018DNR Order/ Advanced Directive UnknownFull Code05/31/2018 Allergies, Adverse Reactions, Alerts Substance Reaction Codes Entered Date Inactivated Date Status *No known food allergies Glbexyw9409/06/2018No Inactive DateActiveMethylprednisolonehivesRxNorm: 6902 09/06/2018No Inactive DateActive Problems Condition Codes Effective Dates Condition St atus (Z12.4-V76.2) Encounter for screening fo r malignant neoplasm of cervix ICD-10: Z12.4 ICD-9: V76.207/ActiveChronic kidney disease, unspecifiedICD-10: N18.9 ICD-9: 585.909ActiveEncounter for immunizationICD-10: Z23 ICD-9: V04.8109ActiveHyperlipidemia, unspecifiedICD-10: E78.5 ICD-9: 272.408/ActiveHypertensive heart disease with heart failureICD-10: I11.0 ICD-9: 402.9107/ActiveHypothyroidism, unspecifiedICD-10: E03.9 ICD-9: 244.912ActiveType 2 diabetes mellitus with peripheral neuropathy ICD-10: E11.42 ICD-9: 250.6002ActiveRight wrist painICD-10: M25.531 ICD-9: 719.4308Active(Z12.11-V76.51) Encounter for screening for malignant neoplasm of colonICD-10: Z12.11 ICD-9: V76.5107/Active(Z12.31-V76.12) Encounter for screening mammogram for malignant neoplasm of breastICD-10: Z12.31 ICD-9: V76.1207ActiveAdult BMI 50.0-59.9 kg/sq mICD-10: Z68.43 ICD-9: V85.4308ActiveEssential [...] ICD-9: 356.908ActivePatient Not SeenICD-10: UXZ.01 ICD-9: XZ0.107ActiveOther continuous churn buttermaker (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ICD-10: Z79.899 ICD-9: V58.6907/ActiveChest pain, unspecifiedICD-10: R07.9 ICD-9: 786.5002ActiveEncounter for preprocedural cardiovascular examinationICD-10: Z01.810 ICD-9: V72.8106ActiveDyspnea, unspecifiedICD-10: R06.00 ICD-9: 786.ActivePost-traumatic stress disorder, unspecifiedICD-10: F43.10 ICD-9: 309.8112ActiveWheezingICD-10: R06.2 ICD-9: 786.0708/08/2018ActiveAbnormal electrocardiogram [ECG] [EKG]ICD-10: R94.31 ICD-9: 794.ActiveEdema, unspecifiedICD-10: R60.9 ICD-9: 782.310ActiveHeadacheICD-10: R51 ICD-9: 784.001ActiveLong term (current) use of non-steroidal anti- inflammatories (NSAID)ICD-10: Z79.1 ICD-9: V58.Active Medications Medication Codes Instructions Start Date Stop Date Status Fill Instructions Sudafed 12 Hour 120 mg tablet,extended release RxNorm: 2812924 TAKE 1 TABLET BY MOUTH EVERY 12 HOURS NEEDED 06/11/20 20 2019 Inactive hydrochlorothiazide 25 mg tablet RxNorm: 721291 TAKE (1) TABLET BY MOUTH EVERY DAY 06/11/20 20 2019 Inactive omeprazole 20 mg capsule,delayed release RxNorm: 725720 TAKE 1 CAPSULE BY MOUTH EVERY DAY 05/14/20 20 2020 Inactive metformin 500 mg tablet RxNorm: 383142 1 Tablet(s) Oral every day 05/12/20 20 2019 Inactive True Metrix Glucose Test Strip RxNorm: 1 Test Strips Miscellaneous two times a day as needed 04/17/20 No Stop Date Active metformin 500 mg tablet RxNorm: 735922 1 Tablet(s) Oral every day 04/17/20 20 2019 Inactive diclofenac sodium 75 mg tablet,delayed release RxNorm: 016923 1 Tablet(s) PO BID 04/14/20 20 2021 Inactive This refill negates all other refills of this medication Sudafed 12 Hour 120 mg tablet,extended release RxNorm: 0787697 TAKE 1 TABLET BY MOUTH EVERY 12 HOURS NEEDED 03/14/20 20 2019 Inactive True Metrix Glucose Test Strip RxNorm: 1 Test Strips Miscellaneous every morning 03/13/20 20 2019 Inactive 100/container loperamide 2 mg tablet RxNorm: 138221 1 Tablet(s) Oral as needed take one tablet after each loose stool, maximum of 8 tablets in 24 hours 02/22/20 20 2019 Inactive True Metrix Glucose Test Strip RxNorm: 1 Test Strips Miscellaneous QAM 02/22/20 20 2019 Inactive 100/container cetirizine 10 mg tablet RxNorm: 9375163 1 Tablet(s) PO daily 01/17/20 20 2019 Inactive levothyroxine 50 mcg tablet RxNorm: 060031 1 Tablet(s) PO daily 01/17/20 20 2020 Inactive gabapentin 300 mg capsule RxNorm: 356886 1 Capsule(s) PO TID 01/17/20 20 2019 Inactive loperamide 2 mg tablet RxNorm: 840410 1 Tablet(s) Oral as needed take one tablet after each loose stool, maximum of 8 tablets in 24 hours 01/17/20 20 2019 Inactive quetiapine 100 mg tablet RxNorm: 843302 1 Tablet(s) Oral every night at bedtime 01/17/20 20 2019 Inactive lisinopril 2.5 mg tablet RxNorm: 399244 1 Tablet(s) PO daily 01/15/20 20 2020 Inactive Singulair 10 mg tablet RxNorm: 714216 1 Tablet(s) PO daily 01/15/20 20 2020 Inactive levothyroxine 50 mcg tablet RxNorm: 548541 1 Tablet(s) PO daily 01/15/20 20 2019 Inactive gabapentin 300 mg capsule RxNorm: 472187 1 Capsule(s) PO TID 01/15/20 20 2019 Inactive cetirizine 10 mg tablet RxNorm: 6879406 1 Tablet(s) PO daily 01/15/20 20 2019 Inactive gentamicin 0.3 % eye drops RxNorm: 756547 1 Drop(s) ophthalmic (eye) four times a day 12/29/19 20 2019 Inactive gentamicin 0.3 % eye drops RxNorm: 425503 1 Drop(s) ophthalmic (eye) four times a day 12/29/19 20 2019 Inactive gentamicin 0.3 % eye drops RxNorm: 551818 1 Drop(s) ophthalmic (eye) four times a day 12/29/19 20 2019 Inactive hydrochlorothiazide 25 mg tablet RxNorm: 165838 1 Tablet(s) Oral every day 12/21/19 20 2019 Inactive Sudafed 12 Hour 120 mg tablet,extended release RxNorm: 0106093 TAKE (1) TABLET BY MOUTH EVERY 12 HOURS NEEDED 12/21/19 20 2019 Inactive loperamide 2 mg tablet RxNorm: 102982 1 Tablet(s) Oral as needed take one tablet after each loose stool, maximum of 8 tablets in 24 hours 12/11/19 20 2019 Inactive loperamide 2 mg tablet RxNorm: 059436 1 Tablet(s) Oral as needed take one tablet after each loose stool, maximum of 8 tablets in 24 hours 12/11/19 20 2019 Inactive atorvastatin 40 mg tablet RxNorm: 924755 1 Tablet(s) Oral every day 11/29/19 20 2020 Inactive quetiapine 100 mg tablet RxNorm: 601205 1 Tablet(s) Oral every night at bedtime 11/28/19 20 2019 Inactive sertraline 100 mg tablet RxNorm: 604205 1 Tablet(s) Oral 11/28/19 20 2019 Inactive omeprazole 20 mg capsule,delayed release RxNorm: 449160 1 Capsule(s) Oral every day 11/20/19 20 2019 Inactive amoxicillin 250 mg capsule RxNorm: 060001 1 Capsule(s) Oral three times a day 11/07/19 20 2019 Inactive multivitamin with iron-mineral tablet RxNorm: 1 Tablet(s) Oral every day 10/29/19 20 2021 Inactive cetirizine 10 mg tablet RxNorm: 9734696 1 Tablet(s) PO daily 10/20/19 20 2019 Inactive This refill negates all other refills of this medication. Please do not auto refill Singulair 10 mg tablet RxNorm: 391780 1 Tablet(s) PO daily 10/20/19 20 2019 Inactive This refill negates all other refills of this medication gabapentin 300 mg capsule RxNorm: 033186 1 Capsule(s) PO TID 10/20/19 20 2019 Inactive lisinopril 2.5 mg tablet RxNorm: 373662 1 Tablet(s) PO daily 10/20/19 20 2019 Inactive levothyroxine 50 mcg tablet RxNorm: 949563 1 Tablet(s) PO daily 10/20/192019 Inactive This refill negates all other refills of this medication fenugreek seed extract 500 mg capsule RxNorm: 1 Capsule(s) Oral three times a day 10/17/192021 Inactive hydrochlorothiazide 25 mg tablet RxNorm: 918592 1 Tablet(s) Oral every day 10/17/192019 Inactive Alcohol Prep Pads RxNorm: 228741 1 Patch TOP QAM 10/16/19 20 2020 Inactive loperamide 2 mg tablet RxNorm: 322730 1 Tablet(s) Oral as needed take one [...] 2019 Inactive hydrochlorothiazide 25 mg tablet RxNorm: 905129 1 Tablet(s) Oral every day 09/19/20 19 2019 Inactive Sudafed 12 Hour 120 mg tablet,extended release RxNorm: 2727885 1 Tablet(s) Oral every 12 hours as needed 09/11/20 19 2018 Inactive omeprazole 20 mg capsule,delayed release RxNorm: 933470 1 Capsule(s) Oral every day 09/07/20 19 2019 Inactive Sudafed 12 Hour 120 mg tablet,extended release RxNorm: 4975973 1 Tablet(s) Oral every 12 hours as needed 09/04/20 19 2018 Inactive pantoprazole 40 mg tablet,delayed release RxNorm: 325638 1 Tablet(s) Oral every day 08/24/20 19 2018 Inactive discontinue any other H2Blkr. and PPI albuterol sulfate 2.5 mg/3 mL (0.083 %) solution for nebulization RxNorm: 191600 1 Vial Inhalation every four hours as needed as needed for dyspnea 08/17/20 19 2019 Inactive 60/box. This refill negates all other refills of this medication. Please do not fill early. Please do not auto refill. Symbicort 160 mcg-4.5 mcg/actuation HFA aerosol inhaler RxNorm: 8974575 2 Puff(s) INH BID 08/17/20 19 No Stop Date Active Alcohol Prep Pads RxNorm: 337292 1 Patch TOP QAM 08/17/20 19 2019 Inactive Ventolin HFA 90 mcg/actuation aerosol inhaler RxNorm: 321004 2 Puff(s) INH QID 08/09/20 19 2019 Inactive Please do not fill early. Please do not auto refill. This refill negates all other refills of this medication True Metrix Glucose Test Strip RxNorm: 1 Test Strips Miscellaneous QAM 08/09/20 19 2019 Inactive 100/container atorvastatin 40 mg tablet RxNorm: 316822 1 Tablet(s) Oral every day 07/04/20 19 2019 Inactive levmetamfetamine 50 mg nasal inhaler RxNorm: 1 Unit(s) NASAL Q3-4H Do not use more than every 3 hours or 8 times/24hours 06/26/20 19 2021 Inactive Please do not auto refill. This refill negates all other refills of this medication buspirone 7.5 mg tablet RxNorm: 864714 1 Tablet(s) PO BID 06/26/20 19 2020 Inactive This refill negates all other refills of this medication hydrochlorothiazide 12.5 mg tablet RxNorm: 722940 1 Tablet(s) PO QAM 06/26/20 19 2019 Inactive Ventolin HFA 90 mcg/actuation aerosol inhaler RxNorm: 713462 2 Puff(s) INH QID 06/26/20 19 2018 Inactive Please do not fill early. Please do not auto refill. This refill negates all other refills of this medication Singulair 10 mg tablet RxNorm: 540935 1 Tablet(s) PO daily 06/26/20 19 2019 Inactive This refill negates all other refills of this medication cetirizine 10 mg tablet RxNorm: 9264672 1 Tablet(s) PO daily 06/26/20 19 2019 Inactive This refill negates all other refills of this medication. Please do not auto refill levothyroxine 50 mcg tablet RxNorm: 380951 1 Tablet(s) PO daily 06/26/20 19 2019 Inactive This refill negates all other refills of this medication diclofenac sodium 75 mg tablet,delayed release RxNorm: 559459 1 Tablet(s) PO BID 06/26/20 19 2019 Inactive This refill negates all other refills of this medication ranitidine 150 mg tablet RxNorm: 306518 1 Tablet(s) PO BID 06/26/20 19 2018 Inactive This refill negates all other refills of this medication Calcium 600-D3 Plus (mag-zinc) 600 mg calcium-800 unit-50 mg tablet RxNorm: 1 Tablet(s) PO daily take an additonal tablet for itching. 06/26/20 19 2018 Inactive This refill negates all other refills of this medication albuterol sulfate 2.5 mg/3 mL (0.083 %) solution for nebulization RxNorm: 330351 1 Vial INH QID 06/26/20 19 2018 Inactive 60/box. This refill negates all other refills of this medication. Please do not fill early. Please do not auto refill. lisinopril 2.5 mg tablet RxNorm: 569871 1 Tablet(s) PO daily 06/21/20 19 2019 Inactive gabapentin 300 mg capsule RxNorm: 159449 1 Capsule(s) PO TID 06/21/20 19 2019 Inactive atorvastatin 20 mg tablet RxNorm: 459729 1 Tablet(s) PO QHS 06/07/20 19 2018 Inactive This refill negates all other refills of this medication TRUEplus Lancets 30 gauge RxNorm: 1 Lancets Miscellaneous QAM 05/29/20 19 2018 Inactive 100/box gabapentin 300 mg capsule RxNorm: 567220 1 Capsule(s) PO TID 05/03/20 19 2018 Inactive Flintstones Complete (iron) 18 mg iron chewable tablet RxNorm: 1 Tablet(s) PO daily 04/04/20 19 2021 Inactive This refill negates all other refills of this medication gabapentin 300 mg capsule RxNorm: 518490 1 Capsule(s) PO TID as needed 02/01/202018 Inactive True Metrix Glucose Test Strip RxNorm: 1 Test Strips Miscellaneous QAM 02/01/20 19 2018 Inactive 100/container Alcohol Prep Pads RxNorm: 651448 1 Patch TOP QAM 02/01/20 19 2018 Inactive TRUEplus Lancets 30 gauge RxNorm: 1 Lancets Miscellaneous QAM 02/01/20 19 2018 Inactive 100/box lisinopril 2.5 mg tablet RxNorm: 559745 1 Tablet(s) PO daily 12/28/192018 Inactive ranitidine 150 mg tablet RxNorm: 995673 1 Tablet(s) PO BID 10/21/192018 Inactive This refill negates all other refills of this medication albuterol sulfate 2.5 mg/3 mL (0.083 %) solution for nebulization RxNorm: 228775 1 Vial INH QID 10/21/19 19 2018 [...] this medication gabapentin 300 mg capsule RxNorm: 190761 1 Capsule(s) PO TID as needed 10/21/19 19 2018 Inactive atorvastatin 20 mg tablet RxNorm: 816255 1 Tablet(s) PO QHS 10/21/192018 Inactive This refill negates all other refills of this medication trazodone 50 mg tablet RxNorm: 585763 1 Tablet(s) PO QHS 10/21/192018 Inactive This refill negates all other refills of this medication Ventolin HFA 90 mcg/actuation aerosol inhaler RxNorm: 464296 2 Puff(s) INH QID 10/21/192018 Inactive Please do not fill early. Please do not auto refill. This refill negates all other refills of this medication Calcium 600-D3 Plus 600 mg calcium-800 unit-50 mg tablet RxNorm: 1 Tablet(s) PO daily take an additonal tablet for itching. 10/21/192018 Inactive This refill negates all other refills of this medication Singulair 10 mg tablet RxNorm: 759178 1 Tablet(s) PO daily 10/21/192018 Inactive This refill negates all other refills of this medication buspirone 7.5 mg tablet RxNorm: 634753 1 Tablet(s) PO BID 10/21/192018 Inactive This refill negates all other refills of this medication diclofenac sodium 75 mg tablet,delayed release RxNorm: 603986 1 Tablet(s) PO BID 10/21/192018 Inactive This refill negates all other refills of this medication hydrochlorothiazide 12.5 mg tablet RxNorm: 885036 1 Tablet(s) PO QAM 10/21/192018 Inactive metoprolol succinate ER 50 mg tablet,extended release 24 hr RxNorm: 111976 1 Tablet(s) PO daily 10/21/19 2018 Inactive This refill negates all other refills of this medication levothyroxine 50 mcg tablet RxNorm: 950505 1 Tablet(s) PO daily 10/21/19 19 2018 Inactive This refill negates all other refills of this medication cetirizine 10 mg tablet RxNorm: 3296289 1 Tablet(s) PO daily 10/21/19 19 2018 Inactive This refill negates all other refills of this medication. Please do not auto refill Flintstones Complete (iron) 18 mg iron chewable tablet RxNorm: 1 Tablet(s) PO daily 10/21/19 19 2018 Inactive This refill negates all other refills of this medication buspirone 7.5 mg tablet RxNorm: 409607 1 Tablet(s) PO BID 10/12/19 19 2018 Inactive cetirizine 10 mg tablet RxNorm: 4339427 1 Tablet(s) PO daily 09/28/20 18 2018 Inactive Guaiasorb DM 10 mg-100 mg/5 mL oral liquid RxNorm: 669527 10 Milliliter(s) PO As needed every 4 hr 09/24/20 18 2018 Inactive Vicks Vaporub 4.7 %-1.2 %-2.6 % topical ointment RxNorm: 6173779 1 Application TOP TID 09/24/20 18 2018 Inactive levmetamfetamine 50 mg nasal inhaler RxNorm: 1 Unit(s) NASAL Q3-4H 09/24/20 18 2017 Inactive sertraline 50 mg tablet RxNorm: 161285 1 Tablet(s) PO daily 09/09/20 18 2018 Inactive Please note dose trazodone 50 mg tablet RxNorm: 801048 1 Tablet(s) PO QHS 09/06/20 18 2018 Inactive sertraline 50 mg tablet RxNorm: 109304 1 Tablet(s) PO daily 09/06/20 18 2017 Inactive amoxicillin 500 mg tablet RxNorm: 266079 1 Tablet(s) PO Q12H 08/31/20 18 2017 Inactive albuterol sulfate 2.5 mg/3 mL (0.083 %) solution for nebulization RxNorm: 959455 1 Vial INH QID 08/10/20 18 2018 Inactive 60/box. Please do not fill early. Please do not auto refill. Prozac 10 mg capsule RxNorm: 173501 1 Capsule(s) PO daily 08/09/20 18 2017 Inactive buspirone 7.5 mg tablet RxNorm: 574354 1 Tablet(s) PO BID 08/09/20 18 2018 Inactive gabapentin 300 mg capsule RxNorm: 256663 1 Capsule(s) PO TID as needed 08/01/20 18 2018 Inactive hydrochlorothiazide 12.5 mg tablet RxNorm: 438313 1 Tablet(s) PO QAM 08/01/20 18 2018 Inactive ranitidine 150 mg tablet RxNorm: 022208 1 Tablet(s) PO BID 08/01/20 18 2018 Inactive Macrobid 100 mg capsule RxNorm: 634469 1 Capsule(s) PO Q12H 06/21/20 18 2017 Inactive Singulair 10 mg tablet RxNorm: 262463 1 Tablet(s) PO daily 06/14/20 18 2018 Inactive Ventolin HFA 90 mcg/actuation aerosol inhaler RxNorm: 1522165 2 Puff(s) INH QID 06/14/20 18 2018 Inactive Singulair 10 mg tablet RxNorm: 336752 1 Tablet(s) PO daily 06/14/20 18 2017 Inactive buspirone 7.5 mg tablet RxNorm: 595647 1 Tablet(s) PO BID 06/14/20 18 2017 Inactive Prozac 10 mg capsule RxNorm: 108029 1 Capsule(s) PO daily 06/14/20 18 2017 Inactive Neilmed Pediatric Sinus Rinse Refill packet RxNorm: 1 Unit Dose NASAL PRN 05/31/20 18 2021 Inactive diclofenac sodium 75 mg tablet,delayed release RxNorm: 161375 1 Tablet(s) PO BID 05/31/20 18 2017 Inactive lisinopril 2.5 mg tablet RxNorm: 040366 1 Tablet(s) PO daily 05/31/20 18 2017 Inactive metoprolol succinate ER 50 mg tablet,extended release 24 hr RxNorm: 892375 1 Tablet(s) PO daily 05/31/20 18 2017 Inactive levothyroxine 50 mcg tablet RxNorm: 549775 1 Tablet(s) PO daily 05/31/20 18 2017 Inactive TRUEplus Lancets 30 gauge RxNorm: 1 Lancets Miscellaneous QAM 05/31/20 18 2017 Inactive 100/box Ventolin HFA 90 mcg/actuation aerosol inhaler RxNorm: 483486 2 Puff(s) INH QID 05/31/20 18 2017 Inactive Aleve 220 mg capsule RxNorm: 4855666 1 Capsule(s) PO BID 05/31/20 18 2018 Inactive ranitidine 150 mg tablet RxNorm: 198845 1 Tablet(s) PO BID 05/31/20 18 2017 Inactive gabapentin 300 mg capsule RxNorm: 859636 1 Capsule(s) PO TID as needed 05/31/20 18 2017 Inactive atorvastatin 20 mg tablet RxNorm: 619218 1 Tablet(s) PO QHS 05/31/20 18 2017 Inactive True Metrix Glucose Test Strip RxNorm: 1 [facility]ps [facility] 05/31/20 18 2017 Inactive 50/container Calcium 600-D3 Plus 600 mg calcium-800 unit-50 mg tablet RxNorm: 1 Tablet(s) PO daily take an additonal tablet for itching. 05/31/20 18 2017 Inactive hydrochlorothiazide 12.5 mg tablet RxNorm: 463541 1 Tablet(s) PO QAM 05/31/20 18 2017 Inactive Flintstones Complete (iron) 18 mg iron chewable tablet RxNorm: 1 Tablet(s) PO daily 05/31/20 18 2017 Inactive d-mannose oral powder RxNorm: PO 18 2021 Inactive True Metrix Glucose Meter RxNorm: miscellaneous 08/17/20 19 2018 Inactive sertraline 50 mg tablet RxNorm: 468467 1 Tablet(s) PO daily 11/28/19 20 2019 Inactive loperamide 2 mg tablet RxNorm: 500786 oral 09/29/20 19 2018 Inactive Symbicort 160 mcg-4.5 mcg/actuation HFA aerosol inhaler RxNorm: 3541624 2 Puff(s) INH BID 08/17/20 19 2018 Inactive Medication Administered No Medication Administered data Results Observation Observation Code Item Item Code Result Date S ervice Location VITAMIN B-12 22204 Vitamin B12 2132-9 299 pg/mL 06/13/2020 [facility] [address] [place], [place] [address]ZPOOAP LDL - KGJR51573HWW-Qlryrv39618-8862 mg/dL06/13/2020 [facility] [address] [place], [place] [address]SXKWJLSMCN45852Yufrpkyehy84844-461 mg/dL06/13/2020 [facility] [address] [place], [place] [address]EVX88533DFA40749-87.731 uIU/mL06/13/2020 [facility] [address] [place], [place] [address]GGEIWCDSTMZVQ77592Woaadekvusesa4946-3335 mg/dL06/13/2020 [facility] [address] [place], [place] [address]ZWIGLTNGRBOOB36140ZMNA80213-057 mg/dL06/13/2020 [facility] [address] [place], [place] [address]SLIDESLIDE_SCANPlatelet Xcdfzgse0182-4Zwfrun87/11/2020 [facility] [address] [place], [place] [address]SLIDESLIDE_SCANPoikilocytosis779-92+06/13/2020 [facility] [address] [place], [place] [address]SLIDESLIDE_SCANEchinocytes7790-91+06/13/2020 [facility] [address] [place], [place] [address]SLIDESLIDE_SCANElliptocytes11274-81+06/13/2020 [facility] [address] [place], [place] [address]S6D-OXAAXDMWIPWKTIE4671-9Xccod HGB T2K32100-37.5 %06/13/2020 [facility] [address] [address]E9N-SCXFRMJNJAUPARF6931-1iOG11902-1398 mg/dL06/13/2020 [facility] [address] [address]XMEIVMEE CBC W/ DIFF QZH10788ZNY2215-793.5 K/ul06/13/2020 [facility] [address] [address]FVCDHBUE CBC W/ DIFF GMH66131DZA117-20.34 M/uL06/13/2020 [facility] [address] [address]FIVDCWIQ CBC W/ DIFF FZT07215Fdmvaxwbew311-002.0 g/dL06/13/2020 [facility] [address] [address]SIJYRWSC CBC W/ DIFF WXH75925Rqvwbyaqub9609-675.8 %06/13/2020 [facility] [address] [address]MZOKSFEG CBC W/ DIFF FKU25654KLR541-168.5 fL06/13/2020 [facility] [address] [address]QFXXTWCD CBC W/ DIFF HNB35212DMJ930-055.8 pg06/13/2020 [facility] [address] [address]NMCWWYKX CBC W/ DIFF RVG21078MANI998-858.0 g/dL06/13/2020 [facility] [address] [address]APLPJFGG CBC W/ DIFF BJM53752YZT857-037.0 %06/13/2020 [facility] [address] [place] [address]RDZKNGFW CBC W/ DIFF NMQ28232Pbmffuie Izfdf096-8973 K/uL06/13/2020 [facility] [address] [address]LCITUTMQ CBC W/ DIFF EGN93224AGI54726-925.0 fL06/13/2020 [facility] [address] [address]LHBQGKEC CBC W/ DIFF VTM57685Vyptvqktcuc %770-884.6 %06/13/2020 [facility] [address] [place] [address]WVXZGSKZ CBC W/ DIFF BDI09297Qvysxutdnof %736-911.4 %06/13/2020 [facility] [address] [place] [address]XBBSEAPO CBC W/ DIFF QUO56697Gylnsvfgx %5905-53.3 %06/13/2020 [facility] [address] [place] [address]FCERQTGG CBC W/ DIFF OZX64262Oboxhzvcgsv %713-80.6 %06/13/2020 [facility] [address] [place] [address]QTQYICGA CBC W/ DIFF LBI80444Nvfglpjxc%706-20.1 %06/13/2020 [facility] [address] [place], [place] [address]ZWZGFXRT CBC W/ DIFF OET05253Wyjpasku Oognaiurwa953-382236 /ul 06/13/2020 [facility] [address] [place] [address]ASLDXYLZ CBC W/ DIFF ZMA68640Bpdkovml Jyhwiotmah51164-63327 /ul 06/13/2020 [facility] [address] [place], [place] [address]UEENUHDT CBC W/ DIFF IQN43032Gjirwnbd Cegqjdos900-3120 /ul 06/13/2020 [facility] [address] [place], [place] [address]NFDFBDQZ CBC W/ DIFF PAF28097Rqivpjgb Smzoyzghin573-330 /ul 06/13/2020 [facility] [address] [place] [address]OBAEXUCM CBC W/ DIFF VFQ48185Jfrvplqu Lerlclzx997-502 /ul06/13/2020 [facility] [address] [place] [address]UEFJQHQYCVR06330Hbpzymqvqqr2319-6466 mg/dL06/13/2020 [facility] [address] [place], [place] [address]XHUM 14 (METABOLIC PANEL)36167Vyomayg4379-569 mg/dL06/13/2020 [facility] [address] [place] [address]PJHO 14 (METABOLIC PANEL)71687UYZ6797-437 mg/dL06/13/2020 [facility] [address] [place] [address]PETF 14 (METABOLIC PANEL)91554Uopnvwrckm0655-88.8 mg/dL06/13/2020 [facility] [address] [place], [place] [address]XRIF 14 (METABOLIC PANEL)27129TQF/Creat Ukvcy2134-283.109 [facility] [address] [place], [place] [address]SPQO 14 (METABOLIC PANEL)41821KVA Bgrsnzxwc75655-016 mL/min/1.73m2 06/13/2020 [facility] [address] [place], [place] [address]HTFW 14 (METABOLIC PANEL)24507MIN Estimated for Americans 47206-127 mL/min/1.58d65306/13/2020 [facility] [address] [place], [place] [address]XZZS 14 (METABOLIC PANEL)73901Hxqlsj2505-6049 mmol/L06/13/2020 [facility] [address] [place], [place] [address]DMFS 14 (METABOLIC PANEL)13156Cktiauihq5345-21.4 mmol/L06/13/2020 [facility] [address] [place], [place] [address]JOZC 14 (METABOLIC PANEL)12569Gxmyaxxq4567-0892 mmol/L06/13/2020 [facility] [address] [place] [address]PDHT 14 (METABOLIC PANEL)106[address]Xghjr TB91538-230 mmol/L06/13/[address] [facility] [address] [place] [address]ZFPF 14 (METABOLIC PANEL)00712Ckqpi Bwi7446-207.4 mEq/L06/13/2020 [facility] [address] [place] [address]EDTJ 14 (METABOLIC PANEL)10212Wjrrunicqk Serum Srmyaazjiz30552-7599 mOsm/kg06/13/2020 [facility] [address] [place] [address]ARQR 14 (METABOLIC PANEL)622[address]Ufterhh81838-24.8 g/dL06/13/2020 [facility] [address] [place] [address]VJQY 14 (METABOLIC PANEL)01275Mmkrx Yjvvrby9247-72.1 g/dL06/13/2020 [facility] [address] [place] [address]ZQJR 14 (METABOLIC PANEL)900[address]Ldukzgyc1276-40.3 g/dL06/13/2020 [facility] [address] [place] [address]LDWT 14 (METABOLIC PANEL)87290Tjrklvv/Globulin Ralub8341-73.2 06/13/2020 [facility] [address] [place] [address] 228[address]ZVIZ 14 (METABOLIC PANEL)46472DXD CZWR7524-900.00 U/L06/13/2020 [facility] [address] [place], [place] [address]BOWU 14 (METABOLIC PANEL)83494FCKX/MGG8419-24 U/L06/13/2020 [facility] [address] [place], [place] [address]WYUU 14 (METABOLIC PANEL)78189EEBA/GPI8069-793 U/L06/13/2020 [facility] [address] [place], [place] [address]VXDL 14 (METABOLIC PANEL)41270Mrjhi Gjegkcszm8595-60.3 mg/dL 06/13/2020 [facility] [address] [place], [place] [address]HWQQ 14 (METABOLIC PANEL)04212Yhkbmxn42760-20.2 mg/dL06/13/2020 [facility] [address] [place], [place] [address]NUHU 14 (METABOLIC PANEL)56885Yfkzsowtk Zvmukkc81548-44.5 mg/dL 06/13/2020 [facility] [address] [place], [place] [address]OYIQWNP V07780Pcrmwgl D25669-300.1 ng/mL06/13/2020 [facility] [address] [place], [place] [address]XTJ - NLWC96727EBP3942-580 mg/dL06/13/2020 [facility] [address] [place], [place] [address]KQS - LHJE44423FOE35360-944 %06/13/2020 [facility] [address] [place] [address] Procedures Procedure Codes Date Glucose Blood Test CPT-4: 41716 06/11/2020 FLUCELVAX PFS VAC NO PRSV 0.5 ML IM CPT-4: 49655 06/11/2020 Admin flu virus vaccine CPT-4: G0008 06/11/20 20 Electrocardiogram CPT-4: 04139 05/14/2020 Tobacco Assessment/Screening CPT-4: TCA Fall Risk Assessment SNOMED CT: 06438209 4 CPT-4: DFRA01/01/2020Functional AssessmentCPT-4: DFA01/01/2020Semmes Fany AssessmentCPT-4: DSWA11/28/2019Patient Health QuestionnaireCPT-4: DPHQ11/28/2019 Chili Fany AssessmentCPT-4: DSWA10/17/2019HypertensionCPT-4: HTN10/17/[address]: 092841443 CPT-4: DFRA09/19/2019Functional AssessmentCPT-4: DFA111/20/2018Urinalysis, dip stickCPT-4: 6023168Tobacco Assessment/ScreeningCPT-4: TCA05/24/2019 Patient Health QuestionnaireCPT-4: DPHQ05/24/2019AHA/REBECCA Classification AssessmentCPT-4: DAHA04/25/2019Controlled Substance ReportCPT-4: CTRSU04/25/2019 Urinalysis, dip stickCPT-4: 1389696Urinalysis, dip stickCPT-4: 31412 03/28/20199161K8C-XbwztmdlceazbedICO-6: 50822ItlggwrC8Q-EuqdrrlrtifdqamJZR-7: 99239 KocyjnjO5K-ZksjabrftqsddfwXFQ-7: 77272VccsszmU4H-VpxduyvwfnehpysUSV-3: [address]: 784145407 CPT-4: N09Hbtmxmd Vital Signs Date Vital 06/11/2020 Blood Pressure 1: 116/68 Code: 8480-6 BMI: 55.1 Code: 46967-1 Heart Rate 1: 90 bpm Height: 4'11 Code: 8302-2 Random Blood Sugar: 127/NaN Respiratory Rate: 16 bpm SpO2: 98% Temperature: 36.5 (C) / 97.7 (F) Weight: 273 lbs Code: 28578-4 Reason For Visit Reason For Visit Effective [...] for screening for malignant neoplasm of cervix[ICD10: Z12.4]Anna Bourgeois [id number] [facility] [address] [place], [place] [address]MFX-7: [id number] Plan of Care Planned Activity Notes Codes [...] A1C 6.0 07/04/2019 Hgb A1C 5.6 10/17/2019 Chili Fany 04/11-instructed on good daily foot care routine follow up with Dr. Gonzales, podiatry-diabetic shoe received ophthalmology confirms visit, but doesn't remember when 01/01/2020 FRA complete denies fall 01/01/2020 Functional Assessment complete labs drawn, results pending I10-401.9 Essential (primary) hypertension I11.0-402.91 Hypertensive heart disease with heart failure BP noted good for age cont hctz and lisinipril 10/17/2019 HTN assessment, encouragelifestyle modifications, exercise, weight loss, and limiting fried [...] anxiety and depressed mood routine follow up [facility] labs orderedresults pending E03.9-244.9 Hypothyroidism, unspecified cont levothyroxine labs [...] m continues to loose weight trying to avoidsoda, drinking sparkling flavored pal and occasional Heike Green Tea and honey Z12.4-V76.2 Encounter for screening for malignant neoplasm of cervix last pap January 2019 new 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 Reporting procedures if symptoms/exposure occur ???Known Coronavirus transmission modalities ??? Common symptoms of Covid- 19 disease ??? Known high risk populations for developing severe/fatal infections ??? Covid-19 disease transmission from asymptomatic carriers *The person contacted during this visit verbalized understanding of all above topics. 06/11/2020Patient Education: Patient Medication FynvakoNobytyxyo81/09/2020 Patient Education: VikfeucradfvCbuudjtom17/09/2020Patient Education: Diabetes Eytsyspve53/09/2020Patient Education: QamfghxCyydzzzid19/09/2020Appointment: Anna Culver WPtel: [phone] [place] [address] [id number]: Anna Culver WPtel: [phone] [place] [address] [id number]: Anna Culver WPtel: [phone] [place] [address] [id number]: Anna Culver WPtel: [phone] [place] [address] [id number]: Anna Culver WPtel: [id number] [place] [address] [id number]: Anna Culver WPtel: [address] [place] [address] [id number]: Anna Culver WPtel: [address] [place] [address] [id number]: Anna Culver WPtel: [phone] [place] [address] [id number]: Anna Culver WPtel: [address] [place] [address] [id number]: Sudha Hernadez WPtel: [address] [facility] [address] [id number]: Sudha Hernadez WPtel: [address] [facility] [id number] [id number]: Charlene Oropeza WPtel: [address] [facility] [id number] [id number]: Danny, [id number]: Charlene Oropeza WPtel: [address] [facility] b [id number]: Rasta Palafox WPtel: [address] [facility] b [id number]: Javy Rasta WPtel: [address] [facility] [id number] [id number]: Hema Palafoxothy WPtel: [address] [facility] [id number]: Rasta Palafox WPtel: [address] [facility] OvghowTN24275 [id number]: Pending Gynecology Referral InformationReferral ProcessedReferral: Pending Pulmonology Referral InformationReferralProcessed Referral: Pending Psychiatry Referral InformationReferralInitiatedReferral: Pending Respiratory Services Referral InformationReferralInitiatedReferral: Pending Ophthalmology Referral InformationReferralInitiatedReferral: [facility] WPtel: [address] USWriter placed a call out to the patient to notify her that it has been recommended that she be seenby a urologist. Patient agreed to be seen, does not have a provider of choice and no transportationissues. Shoelace Tipping Machine Operator faxed referral and clinical notes to [facility] in [place], [place] near the patient's home. Patient to [...] seen and prefers a provider in the [place] or [place] area. Shoelace Tipping Machine Operator placed a call out to everyone listed in the area and the only location that was able to accept the patient's insurance was [facility] [place] [address] and spoke with Maylin. Maylin asked that the patient's referral, face sheet and visit notes be faxed to . Shoelace Tipping Machine Operator faxed over requested documents. Patient appointment confirmation letter generated and mailed to her home address. Patient to call to schedule an appointment.ProcessedReferral: [facility] WPtel: [address] [place], [place] [id number] USPatient notified that it has been advised that she be seen by Neurology. Patient agreed to be seen and prefers to be seen by a provider in the [place], [place] area. Patient denies any concerns with transportation, and prefers to schedule her own appointment. Shoelace Tipping Machine Operator placed a call out to [facility] [...] Assessment and plan reviewed with patient . 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
--- OUTSIDE RECORDS SUMMARY | 2023-12-07 02:13 | XMS_ITS | CCD ---
Author Name Leena Culver NP Address [address] [place] [address] [place] [address] Phone Organization [employer] [facility] Phone Care Team Providers Care Film Mounter Name Role Phone Anna Culver NP Primary Care Provider Unav ailable Unavailable Chronic Care Management Unavaila ble Summary Purpose DataExchange Insurance Providers Payer name Policy type / Coverage type Covered libertarian ID Effective Begin Date Effective End Date SUKI MAYO [id number] Unknown Unknown Family history Mother Diagnosis Age [...] 05/31/2018 Education level Unknown Some High School 10th05/31/20187482ViivdviuwaZwnsoiaYumfbnefyf59/29/2018Tobacco historySNOMED CT: 501625760Mpb never smoked or chewed ugbcfmm3505/31/2018Alcohol historySNOMED CT: 159355531Pxgkb drinks qvnhzim3805/31/2018Has the patient ever used illegal drugs? UnknownHas never used illegal drugs05/31/2018DNR Order/ Advanced Directive UnknownFull Code05/31/2018 Allergies, Adverse Reactions, Alerts Substance Reaction Codes Entered Date Inactivated Date Status *No known food allergies Gggchlj2509/06/2018No Inactive DateActiveMethylprednisolonehivesRxNorm: 6902 09/06/2018No Inactive DateActive Problems Condition Codes Effective Dates Condition St atus Adjustment disorder with mixed anxiety a nd depressed mood ICD-10: F43.23 ICD-9: 309.28111/06/2017ActivePolyneuropathy, unspecifiedICD-10: G62.9 ICD-9: 356.908/ActiveRight wrist painICD-10: M25.531 ICD-9: 719.4308ActiveType 2 diabetes mellitus with peripheral neuropathy ICD-10: E11.42 ICD-9: 250.6002ActiveEssential (primary) hypertensionICD-10: I10 ICD-9: 401.901ActiveEncounter for screening, unspecifiedICD-10: Z13.9 ICD-9: V82.912Active(Z12.4-V76.2) Encounter for screening for malignant neoplasm of cervixICD-10: Z12.4 ICD-9: V76.207ActiveChronic kidney disease, unspecifiedICD-10: N18.9 ICD-9: 585.909ActiveEncounter for immunizationICD-10: Z23 ICD-9: V04.8109ActiveHyperlipidemia, unspecifiedICD-10: E78.5 ICD-9: 272.408/ActiveHypertensive heart disease with heart failureICD-10: I11.0 ICD-9: 402.9107ActiveHypothyroidism, unspecifiedICD-10: E03.9 ICD-9: 244.912Active(Z12.11-V76.51) Encounter for screening [...] incontinenceICD-10: R15.9 ICD-9: 787.6003ActiveMixed incontinenceICD-10: N39.46 ICD-9: 788.3308/ActiveDiarrheaICD-10: R19.7 ICD-9: 787.9112ActiveType 2 diabetes mellitus without complicationsICD- 10: E11.9 ICD-9: 250.0001ActiveSinusitisICD-10: J32.9 ICD-9: 473.902ActiveAsthmaICD-10: J45.909 ICD-9: 493.9011ActiveGERD (gastroesophageal reflux disease)ICD-10: K21.9 ICD-9: 530.8112ActiveAcute upper respiratory infection, unspecifiedICD- 10: J06.9 ICD-9: 465.912ActiveApnea, not elsewhere classifiedICD-10: R06.81 ICD-9: 786.0305ActiveEncounter for immunizationICD-10: Z23 ICD-9: V03.907/ActivePatient Not SeenICD-10: UXZ.01 ICD-9: XZ0.107/ActiveOther usp (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ICD-10: Z79.899 ICD-9: V58.6907/ActiveChest pain, unspecifiedICD-10: R07.9 ICD-9: 786.5002ActiveEncounter for preprocedural cardiovascular examinationICD-10: Z01.810 ICD-9: V72.8106/ActiveDyspnea, unspecifiedICD-10: R06.00 ICD-9: 786.0902/08/2019ActivePost-traumatic stress disorder, unspecifiedICD-10: F43.10 ICD-9: 309.8112ActiveWheezingICD-10: R06.2 ICD-9: 786.0708/08/2018ActiveAbnormal electrocardiogram [ECG] [EKG]ICD-10: R94.31 ICD-9: 794.ActiveEdema, unspecifiedICD-10: R60.9 ICD-9: 782.310ActiveHeadacheICD-10: R51 ICD-9: 784.ActiveLong term (current) use of non-steroidal anti- inflammatories (NSAID)ICD-10: Z79.1 ICD-9: V58.64006/13/2018Active Medications Medication Codes Instructions Start Date Stop Date Status Fill Instructions metformin 1,000 mg tablet RxNorm: 073045 1 Tablet(s) Oral two times a day 08/19/20 20 2020 Inactive start on September 11, 2020 metformin 500 mg tablet RxNorm: 875531 1 Tablet(s) Oral two times a day take with 500mg to equal 1000mg 08/19/20 20 2019 Inactive gabapentin 300 mg capsule RxNorm: 620203 TAKE 1 CAPSULE BY MOUTH THREE TIMES DAILY 07/11/20 20 2020 Inactive cetirizine 10 mg tablet RxNorm: 5067372 TAKE (1) TABLET BY MOUTH DAILY 07/11/20 20 2020 Inactive metformin 500 mg tablet RxNorm: 077415 1 Tablet(s) Oral two times a day 07/08/20 20 2019 Inactive loperamide 2 mg tablet RxNorm: 205766 1 Tablet(s) Oral as needed take one tablet after each loose stool, maximum of 8 tablets in 24 hours 06/24/20 20 2021 Inactive Sudafed 12 Hour 120 mg tablet,extended release RxNorm: 1480811 TAKE 1 TABLET BY MOUTH EVERY 12 HOURS NEEDED 06/11/20 20 2019 Inactive hydrochlorothiazide 25 mg tablet RxNorm: 575717 TAKE (1) TABLET BY MOUTH EVERY DAY 06/11/202019 Inactive omeprazole 20 mg capsule,delayed release RxNorm: 166413 TAKE 1 CAPSULE BY MOUTH EVERY DAY 05/14/20 20 2020 Inactive metformin 500 mg tablet RxNorm: 124449 1 Tablet(s) Oral every day 05/12/20 20 2019 Inactive True Metrix Glucose Test Strip RxNorm: 1 Test Strips Miscellaneous two times a day as needed 04/17/20 No Stop Date Active metformin 500 mg tablet RxNorm: 933308 1 Tablet(s) Oral every day 04/17/20 20 2019 Inactive diclofenac sodium 75 mg tablet,delayed release RxNorm: 439696 1 Tablet(s) PO BID 04/14/20 20 2021 Inactive This refill negates all other refills of this medication Sudafed 12 Hour 120 mg tablet,extended release RxNorm: 1360445 TAKE 1 TABLET BY MOUTH EVERY 12 HOURS NEEDED 03/14/20 20 2019 Inactive True Metrix Glucose Test Strip RxNorm: 1 Test Strips Miscellaneous every morning 03/13/20 20 2019 Inactive 100/container True Metrix Glucose Test Strip RxNorm: 1 Test Strips Miscellaneous QAM 02/22/20 20 2019 Inactive 100/container loperamide 2 mg tablet RxNorm: 440470 1 Tablet(s) Oral as needed take one tablet after each loose stool, maximum of 8 tablets in 24 hours 02/22/20 20 2019 Inactive levothyroxine 50 mcg tablet RxNorm: 049835 1 Tablet(s) PO daily 01/17/20 20 2020 Inactive cetirizine 10 mg tablet RxNorm: 0004185 1 Tablet(s) PO daily 01/17/20 20 2019 Inactive loperamide 2 mg tablet RxNorm: 871817 1 Tablet(s) Oral as needed take one tablet after each loose stool, maximum of 8 tablets in 24 hours 01/17/20 20 2019 Inactive quetiapine 100 mg tablet RxNorm: 959306 1 Tablet(s) Oral every night at bedtime 01/17/20 20 2019 Inactive gabapentin 300 mg capsule RxNorm: 847195 1 Capsule(s) PO TID 01/17/20 2019 Inactive lisinopril 2.5 mg tablet RxNorm: 063216 1 Tablet(s) PO daily 01/15/20 20 2020 Inactive Singulair 10 mg tablet RxNorm: 671371 1 Tablet(s) PO daily 01/15/20 20 2020 Inactive levothyroxine 50 mcg tablet RxNorm: 529226 1 Tablet(s) PO daily 01/15/20 20 2019 Inactive gabapentin 300 mg capsule RxNorm: 079038 1 Capsule(s) PO TID 01/15/20 20 2019 Inactive cetirizine 10 mg tablet RxNorm: 8583273 1 Tablet(s) PO daily 01/15/20 20 2019 Inactive gentamicin 0.3 % eye drops RxNorm: 134128 1 Drop(s) ophthalmic (eye) four times a day 12/29/19 20 2019 Inactive gentamicin 0.3 % eye drops RxNorm: 857801 1 Drop(s) ophthalmic (eye) four times a day 12/29/19 20 2019 Inactive gentamicin 0.3 % eye drops RxNorm: 846706 1 Drop(s) ophthalmic (eye) four times a day 12/29/19 20 2019 Inactive hydrochlorothiazide 25 mg tablet RxNorm: 190116 1 Tablet(s) Oral every day 12/21/19 20 2019 Inactive Sudafed 12 Hour 120 mg tablet,extended release RxNorm: 6788917 TAKE (1) TABLET BY MOUTH EVERY 12 HOURS NEEDED 12/21/19 20 2019 Inactive loperamide 2 mg tablet RxNorm: 745117 1 Tablet(s) Oral as needed take one tablet after each loose stool, maximum of 8 tablets in 24 hours 12/11/19 20 2019 Inactive loperamide 2 mg tablet RxNorm: 968752 1 Tablet(s) Oral as needed take one tablet after each loose stool, maximum of 8 tablets in 24 hours 12/11/19 20 2019 Inactive atorvastatin 40 mg tablet RxNorm: 244492 1 Tablet(s) Oral every day 11/29/19 20 03/04/ 2021 Inactive quetiapine 100 mg tablet RxNorm: 971398 1 Tablet(s) Oral every night at bedtime 11/28/19 20 2019 Inactive sertraline 100 mg tablet RxNorm: 327316 1 Tablet(s) Oral 11/28/19 20 2019 Inactive omeprazole 20 mg capsule,delayed release RxNorm: 126116 1 Capsule(s) Oral every day 11/20/19 20 2019 Inactive amoxicillin 250 mg capsule RxNorm: 232530 1 Capsule(s) Oral three times a day 11/07/19 20 2019 Inactive multivitamin with iron-mineral tablet RxNorm: 1 Tablet(s) Oral every day 10/29/19 20 2021 Inactive cetirizine 10 mg tablet RxNorm: 0185395 1 Tablet(s) PO daily 10/20/19 20 2019 Inactive This refill negates all other refills of this medication. Please do not auto refill Singulair 10 mg tablet RxNorm: 146806 1 Tablet(s) PO daily 10/20/19 20 2019 Inactive This refill negates all other refills of this medication gabapentin 300 mg capsule RxNorm: 217373 1 Capsule(s) PO TID 10/20/19 20 2019 Inactive lisinopril 2.5 mg tablet RxNorm: 481511 1 Tablet(s) PO daily 10/20/19 20 2019 Inactive levothyroxine 50 mcg tablet RxNorm: 798804 1 Tablet(s) PO daily 10/20/19 20 2019 Inactive This refill negates all other refills of this medication fenugreek seed extract 500 mg capsule RxNorm: 1 Capsule(s) Oral three times a day 10/17/19 20 2021 Inactive hydrochlorothiazide 25 mg tablet RxNorm: 557283 1 Tablet(s) Oral every day 10/17/19 20 2019 Inactive Alcohol Prep Pads RxNorm: 126611 1 Patch TOP QAM 10/16/19 20 2020 Inactive loperamide 2 mg tablet RxNorm: 370330 1 Tablet(s) Oral as needed take one [...] 2019 Inactive hydrochlorothiazide 25 mg tablet RxNorm: 052809 1 Tablet(s) Oral every day 09/19/20 19 2019 Inactive Sudafed 12 Hour 120 mg tablet,extended release RxNorm: 6581275 1 Tablet(s) Oral every 12 hours as needed 09/11/20 19 2018 Inactive omeprazole 20 mg capsule,delayed release RxNorm: 902499 1 Capsule(s) Oral every day 09/07/20 19 2019 Inactive Sudafed 12 Hour 120 mg tablet,extended release RxNorm: 7313953 1 Tablet(s) Oral every 12 hours as needed 09/04/20 19 2018 Inactive pantoprazole 40 mg tablet,delayed release RxNorm: 518187 1 Tablet(s) Oral every day 08/24/20 19 2018 Inactive discontinue any other H2Blkr. and PPI albuterol sulfate 2.5 mg/3 mL (0.083 %) solution for nebulization RxNorm: 170515 1 Vial Inhalation every four hours as needed as needed for dyspnea 08/17/20 19 2019 Inactive 60/box. This refill negates all other refills of this medication. Please do not fill early. Please do not auto refill. Symbicort 160 mcg-4.5 mcg/actuation HFA aerosol inhaler RxNorm: 7385531 2 Puff(s) INH BID 08/17/20 No Stop Date Active Alcohol Prep Pads RxNorm: 284749 1 Patch TOP QAM 08/17/20 19 2019 Inactive Ventolin HFA 90 mcg/actuation aerosol inhaler RxNorm: 373160 2 Puff(s) INH QID 08/09/20 19 2019 Inactive Please do not fill early. Please do not auto refill. This refill negates all other refills of this medication True Metrix Glucose Test Strip RxNorm: 1 Test Strips Miscellaneous QAM 08/09/20 19 2019 Inactive 100/container atorvastatin 40 mg tablet RxNorm: 482911 1 Tablet(s) Oral every day 07/04/20 19 2019 Inactive levmetamfetamine 50 mg nasal inhaler RxNorm: 1 Unit(s) NASAL Q3-4H Do not use more than every 3 hours or 8 times/24hours 06/26/20 19 2021 Inactive Please do not auto refill. This refill negates all other refills of this medication buspirone 7.5 mg tablet RxNorm: 270102 1 Tablet(s) PO BID 06/26/20 19 2020 Inactive This refill negates all other refills of this medication hydrochlorothiazide 12.5 mg tablet RxNorm: 468466 1 Tablet(s) PO QAM 06/26/20 19 2019 Inactive Ventolin HFA 90 mcg/actuation aerosol inhaler RxNorm: 985070 2 Puff(s) INH QID 06/26/20 19 2018 Inactive Please do not fill early. Please do not auto refill. This refill negates all other refills of this medication Singulair 10 mg tablet RxNorm: 402269 1 Tablet(s) PO daily 06/26/20 19 2019 Inactive This refill negates all other refills of this medication cetirizine 10 mg tablet RxNorm: 5666886 1 Tablet(s) PO daily 06/26/20 19 2019 Inactive This refill negates all other refills of this medication. Please do not auto refill levothyroxine 50 mcg tablet RxNorm: 834833 1 Tablet(s) PO daily 06/26/20 19 2019 Inactive This refill negates all other refills of this medication diclofenac sodium 75 mg tablet,delayed release RxNorm: 004470 1 Tablet(s) PO BID 06/26/20 19 2019 Inactive This refill negates all other refills of this medication ranitidine 150 mg tablet RxNorm: 801665 1 Tablet(s) PO BID 06/26/20 19 2018 Inactive This refill negates all other refills of this medication Calcium 600-D3 Plus (mag-zinc) 600 mg calcium-800 unit-50 mg tablet RxNorm: 1 Tablet(s) PO daily take an additonal tablet for itching. 06/26/20 19 2018 Inactive This refill negates all other refills of this medication albuterol sulfate 2.5 mg/3 mL (0.083 %) solution for nebulization RxNorm: 493284 1 Vial INH QID 06/26/20 19 2018 Inactive 60/box. This refill negates all other refills of this medication. Please do not fill early. Please do not auto refill. lisinopril 2.5 mg tablet RxNorm: 522682 1 Tablet(s) PO daily 06/21/20 19 2019 Inactive gabapentin 300 mg capsule RxNorm: 105546 1 Capsule(s) PO TID 06/21/20 19 2019 Inactive atorvastatin 20 mg tablet RxNorm: 841307 1 Tablet(s) PO QHS 06/07/20 19 2018 Inactive This refill negates all other refills of this medication TRUEplus Lancets 30 gauge RxNorm: 1 Lancets Miscellaneous QAM 05/29/20 19 2018 Inactive 100/box gabapentin 300 mg capsule RxNorm: 756846 1 Capsule(s) PO TID 05/03/20 19 2018 Inactive Flintstones Complete (iron) 18 mg iron chewable tablet RxNorm: 1 Tablet(s) PO daily 04/04/20 19 2021 Inactive This refill negates all other refills of this medication gabapentin 300 mg capsule RxNorm: 267310 1 Capsule(s) PO TID as needed 02/01/20 19 2018 Inactive True Metrix Glucose Test Strip RxNorm: 1 Test Strips Miscellaneous QAM 02/01/20 19 2018 Inactive 100/container Alcohol Prep Pads RxNorm: 981488 1 Patch TOP QAM 02/01/20 19 2018 Inactive TRUEplus Lancets 30 gauge RxNorm: 1 Lancets Miscellaneous QAM 02/01/20 19 2018 Inactive 100/box lisinopril 2.5 mg tablet RxNorm: 663001 1 Tablet(s) PO daily 12/28/19 19 2018 Inactive ranitidine 150 mg tablet RxNorm: 536420 1 Tablet(s) PO BID 10/21/19 19 2018 Inactive This refill negates all other refills of this medication albuterol sulfate 2.5 mg/3 mL (0.083 %) solution for nebulization RxNorm: 512196 1 Vial INH QID 10/21/192018 Inactive 60/box. [...] this medication gabapentin 300 mg capsule RxNorm: 455791 1 Capsule(s) PO TID as needed 10/21/19 19 2018 Inactive atorvastatin 20 mg tablet RxNorm: 213408 1 Tablet(s) PO QHS 10/21/192018 Inactive This refill negates all other refills of this medication trazodone 50 mg tablet RxNorm: 974385 1 Tablet(s) PO QHS 10/21/19 19 2018 Inactive This refill negates all other refills of this medication Ventolin HFA 90 mcg/actuation aerosol inhaler RxNorm: 908087 2 Puff(s) INH QID 10/21/19 19 2018 [...] this medication Singulair 10 mg tablet RxNorm: 427924 1 Tablet(s) PO daily 10/21/19 19 2018 Inactive This refill negates all other refills of this medication buspirone 7.5 mg tablet RxNorm: 866324 1 Tablet(s) PO BID 10/21/19 19 2018 Inactive This refill negates all other refills of this medication diclofenac sodium 75 mg tablet,delayed release RxNorm: 158774 1 Tablet(s) PO BID 10/21/19 19 2018 Inactive This refill negates all other refills of this medication hydrochlorothiazide 12.5 mg tablet RxNorm: 413847 1 Tablet(s) PO QAM 10/21/19 19 2018 Inactive metoprolol succinate ER 50 mg tablet,extended release 24 hr RxNorm: 359934 1 Tablet(s) PO daily 10/21/19 19 2018 Inactive This refill negates all other refills of this medication levothyroxine 50 mcg tablet RxNorm: 483323 1 Tablet(s) PO daily 10/21/192018 Inactive This refill negates all other refills of this medication cetirizine 10 mg tablet RxNorm: 1083701 1 Tablet(s) PO daily 10/21/192018 Inactive This refill negates all other refills of this medication. Please do not auto refill Flintstones Complete (iron) 18 mg iron chewable tablet RxNorm: 1 Tablet(s) PO daily 10/21/192018 Inactive This refill negates all other refills of this medication buspirone 7.5 mg tablet RxNorm: 415189 1 Tablet(s) PO BID 10/12/192018 Inactive cetirizine 10 mg tablet RxNorm: 8173991 1 Tablet(s) PO daily 09/28/202018 Inactive Guaiasorb DM 10 mg-100 mg/5 mL oral liquid RxNorm: 184432 10 Milliliter(s) PO As needed every 4 hr 09/24/20 18 2018 Inactive Vicks Vaporub 4.7 %-1.2 %-2.6 % topical ointment RxNorm: 6567230 1 Application TOP TID 09/24/20 18 2018 Inactive levmetamfetamine 50 mg nasal inhaler RxNorm: 1 Unit(s) NASAL Q3-4H 09/24/20 18 2017 Inactive sertraline 50 mg tablet RxNorm: 377237 1 Tablet(s) PO daily 09/09/20 18 2018 Inactive Please note dose trazodone 50 mg tablet RxNorm: 278366 1 Tablet(s) PO QHS 09/06/20 18 2018 Inactive sertraline 50 mg tablet RxNorm: 969187 1 Tablet(s) PO daily 09/06/20 18 2017 Inactive amoxicillin 500 mg tablet RxNorm: 753960 1 Tablet(s) PO Q12H 08/31/20 18 2017 Inactive albuterol sulfate 2.5 mg/3 mL (0.083 %) solution for nebulization RxNorm: 659004 1 Vial INH QID 08/10/20 18 2018 Inactive 60/box. Please do not fill early. Please do not auto refill. Prozac 10 mg capsule RxNorm: 322522 1 Capsule(s) PO daily 08/09/20 18 2017 Inactive buspirone 7.5 mg tablet RxNorm: 429127 1 Tablet(s) PO BID 08/09/20 18 2018 Inactive gabapentin 300 mg capsule RxNorm: 679308 1 Capsule(s) PO TID as needed 08/01/20 18 2018 Inactive hydrochlorothiazide 12.5 mg tablet RxNorm: 105032 1 Tablet(s) PO QAM 08/01/20 18 2018 Inactive ranitidine 150 mg tablet RxNorm: 195788 1 Tablet(s) PO BID 08/01/20 18 2018 Inactive Macrobid 100 mg capsule RxNorm: 328372 1 Capsule(s) PO Q12H 06/21/20 18 2017 Inactive Singulair 10 mg tablet RxNorm: 299018 1 Tablet(s) PO daily 06/14/20 18 2018 Inactive Ventolin HFA 90 mcg/actuation aerosol inhaler RxNorm: 4638403 2 Puff(s) INH QID 06/14/20 18 2018 Inactive Singulair 10 mg tablet RxNorm: 801328 1 Tablet(s) PO daily 06/14/20 18 2017 Inactive buspirone 7.5 mg tablet RxNorm: 868572 1 Tablet(s) PO BID 06/14/20 18 2017 Inactive Prozac 10 mg capsule RxNorm: 824315 1 Capsule(s) PO daily 06/14/20 18 2017 Inactive Neilmed Pediatric Sinus Rinse Refill packet RxNorm: 1 Unit Dose NASAL PRN 05/31/20 18 2021 Inactive diclofenac sodium 75 mg tablet,delayed release RxNorm: 228138 1 Tablet(s) PO BID 05/31/20 18 2017 Inactive lisinopril 2.5 mg tablet RxNorm: 230373 1 Tablet(s) PO daily 05/31/20 18 2017 Inactive metoprolol succinate ER 50 mg tablet,extended release 24 hr RxNorm: 681216 1 Tablet(s) PO daily 05/31/20 18 2017 Inactive levothyroxine 50 mcg tablet RxNorm: 625384 1 Tablet(s) PO daily 05/31/20 18 2017 Inactive TRUEplus Lancets 30 gauge RxNorm: 1 Lancets Miscellaneous QAM 05/31/20 18 2017 Inactive 100/box Ventolin HFA 90 mcg/actuation aerosol inhaler RxNorm: 972114 2 Puff(s) INH QID 05/31/20 18 2017 Inactive Aleve 220 mg capsule RxNorm: 1270009 1 Capsule(s) PO BID 05/31/20 18 2018 Inactive ranitidine 150 mg tablet RxNorm: 547239 1 Tablet(s) PO BID 05/31/20 18 2017 Inactive gabapentin 300 mg capsule RxNorm: 243690 1 Capsule(s) PO TID as needed 05/31/20 18 2017 Inactive atorvastatin 20 mg tablet RxNorm: 470107 1 Tablet(s) PO QHS 05/31/20 18 2017 Inactive True Metrix Glucose Test Strip RxNorm: 1 Test Strips Miscellaneous [facility] 05/31/20 18 2017 Inactive 50/container Calcium 600-D3 Plus 600 mg calcium-800 unit-50 mg tablet RxNorm: 1 Tablet(s) PO daily take an additonal tablet for itching. 05/31/20 18 2017 Inactive hydrochlorothiazide 12.5 mg tablet RxNorm: 036196 1 Tablet(s) PO QAM 05/31/20 18 2017 Inactive Flintstones Complete (iron) 18 mg iron chewable tablet RxNorm: 1 Tablet(s) PO daily 05/31/20 18 2017 Inactive d-mannose oral powder RxNorm: PO 18 2021 Inactive True Metrix Glucose Meter RxNorm: miscellaneous 08/17/20 19 2018 Inactive sertraline 50 mg tablet RxNorm: 187857 1 Tablet(s) PO daily 11/28/19 20 2019 Inactive loperamide 2 mg tablet RxNorm: 729862 oral 09/29/20 19 2018 Inactive Symbicort 160 mcg-4.5 mcg/actuation HFA aerosol inhaler RxNorm: 0061074 2 Puff(s) INH BID 08/17/20 19 2018 Inactive Medication Administered No Medication Administered data Procedures Procedure Codes Date Patient Health Questionnaire CPT-4: DPHQ Patient Health Questionnaire Little interest or pleasure in doing things?/0 = Not at all, Feeling down, depressed or hopeless?/1= Several days, Trouble falling or staying asleep, or sleeping too much?/0 = Not at all, Feeling tired or having little energy?/0 = Not at all, Poor appetite or overeating?/0 = Not at [...] all, Score:/0-4= Negative for depression- NO PLAN NEEDEDCPT-4: IGYCCcfqmgx81/17/2020 Functional Assessment ADLs - Patient needs direct assistance, cuing, or supervision, to perform the following safely:/*Noassistance, cuing, or supervision needed, IADLs - Patient needs direct assistance, cuing, or supervision, to perform the following safely:/transportationCPT-4: QBSRfumvpd07/17/2020ElectrocardiogramCPT-4: 72600 05/14/2020Tobacco Assessment/ScreeningCPT-4: TCA01/01/2020[facility]135[facility]75 CPT-4: DFRA01/01/2020Functional AssessmentCPT-4: DFA01/01/2020Semmes Fany AssessmentCPT-4: DS11/28/2019Patient Health QuestionnaireCPT-4: DPHQ11/28/2019 [place] Fany AssessmentCPT-4: DSWA10/17/2019HypertensionCPT-4: HTN10/17/2019 [facility]09 CPT-4: DFRA09/19/2019Functional AssessmentCPT-4: DFA111/20/2018Urinalysis, dip stickCPT-4: 836752606/21/2019Tobacco Assessment/ScreeningCPT-4: TCA05/24/2019 Patient Health QuestionnaireCPT-4: DPHQ05/24/2019AHA/REBECCA Classification AssessmentCPT-4: DAHA04/25/2019Controlled Substance ReportCPT-4: CTRSU04/25/2019 Urinalysis, dip stickCPT-4: 717657003/28/2019Urinalysis, dip stickCPT-4: 37912 03/28/20191175A4G-SsnbhshpfrfwcngPQK-2: 57850VzvzlejD4Z-OomjawolhpdvcuxCVV-4: 63678 KmvtiybG3L-AeaupndwzrkumnqALJ-9: 94117HzjpjvbR7H-EpnzmsziepdcwoqDOP-1: [address]: 756824811 CPT-4: P67Mdblsmb Reason For Visit Reason For Visit Effective Dates Notes hypertension 08/19/2020 diabetes mellitus 08/19/2020 mole check 08/19/2020 Interim health update 08/19/2020 Encounters Encounter Performer Location Location Address Codes Magdi e ([id number]) (EST PT) [facility] [place] [facility] [employer] VISIT Diagnosis: Type 2 diabetes mellitus with peripheral neuropathy[ICD10: E11.42] Diagnosis: Adjustment disorder with mixed anxiety and depressed mood[ICD10: F43.23] Diagnosis: Polyneuropathy, unspecified[ICD10: G62.9]Anna Bk Na[address] [place] [address] 59210PBA-9: 52558 08/19/2020 Plan of Care Planned Activity Notes Codes Status Date Visit Plan: M25.531-719.43 Right wrist pain routine follow up with Dr Watson-orthopedics last appt 07/14/2020-record requested quit outpatient PT as didn't feel it was helpful MRI with contrast per orthopedics completed 06/30/2020- per patiet revealed torn ligament to right wrist-record requested in process of being referred to hand account management specialist-will send information when available E11.42-250.60 Type 2 diabetes mellitus with peripheral neuropathy testing BID and PRN if feeling symptomatic 125-132 patient reports feeling symptomatic for BS >100, Metformin increased to 1000mg BID received new monitor [employer] through [facility]-participant of [facility] on demand -will send all diabetic supplies to patient 04/14/2020 hemoglobin 5.6 10/17/2019 Hemoglobin A1C 6.0 07/04/2019 Hgb A1C 5.6 10/17/2019 Hildebran Fany 04/11-instructed on good daily foot care [...] anxiety and depressed mood routine follow up [facility] 08/19/2020 PHQ 9 Scoere 1, admits to [...] feeling light headed Z13.9-V82.9 Encounter for screening, gyokqsetjwt82/6/2020 Maltreatment assessment complete- patient denies any form of abuse or neglect Z68.43-V85.43 Adult BMI 50.0-59.9 kg/sq continues to loose weight trying to avoid soda, drinking sparkling flavor ed pal and occasional Heike Green Tea and honey Z12.4-V76.2 Encounter for screening for malignant neoplasm of cervix last pap January 2019 new appt for pap in June 2020-[facility] Supervisor/Instructor-reports pap negative-records requested Z01.89- V72.85 Encounter for screening [...] visit verbalized understanding of all above topics. 08/19/2020Patient Education: Patient Medication QxjbyjiIafhbwdjn43/17/2020 Patient Education: RzrmpsptqaqeQxfaucyed82/17/2020Patient Education: Diabetes Wssocyxkw31/17/2020Appointment: Anna Culver WPtel: [address] [place] [address] [id number]: Anna Culver WPtel: [address] [place] [address] [id number]: Gianna Birmingham: [address] [facility] [address] [id number]: nAna Culver WPtel: [id number] [place] [address] [id number]: Anna Culver WPtel: [id number] [place] [address] [id number]: Anna Culver WPtel: [address] [place], [place] [id number]: Anna Culver WPtel: [id number] [place] [address] [id number]: Anna Culver WPtel: [id number] [place] [address] [id number]: Anna Culver WPtel: [id number] [place] [address] [id number]: Anna Culver WPtel: [address] [place] [address] [id number]: Anna Culver WPtel: [phone] [place] [address] [id number]: Anna Culver WPtel: [address] [place] [address] [id number]: Anna Culver WPtel: [address] [place] [address] [id number]/20/2018Appointment: Sudha Hernadez WPtel: [facility] [id number]: Sudha Hernadez WPtel: [address] [facility] [address] [id number]: Charlene Oropeza WPtel: [address] [facility] [address] [id number]: Enedelia [id number]: Charlene Oropeza WPtel: [address] [facility] [address] [id number]: Rasta Palafox WPtel: [address] [facility] [address] [id number]: Rasta Palafox WPtel: [address] [facility] [address] [id number]: Rasta Palafox WPtel: [address] [facility] [address] [id number]: Rasta Palafox WPtel: [address] [facility] [address] [id number]: Pending Gynecology Referral InformationReferral ProcessedReferral: Pending Pulmonology Referral InformationReferralProcessed Referral: Pending Psychiatry Referral InformationReferralInitiatedReferral: Pending Respiratory Services Referral InformationReferralInitiatedReferral: Pending Ophthalmology Referral InformationReferralInitiatedReferral: [facility] WPtel: [address] [place] [address] [address] [address] USWriter placed a call out to the patient to notify her that it has been recommended that she be seenby a urologist. Patient agreed to be seen, does not have a provider of choice and no transportationissues. [employer] Applicator faxed referral and clinical notes to [facility] in [place], [place] near the patient's home. Patient to [...] seen and prefers a provider in the [place] or [facility]. [employer] Applicator placed a call out to everyone listed in the area and the only location that was able to accept the patient's insurance was [facility] [address] [place] [address] and spoke with Maylin. Maylin asked that the patient's referral, face sheet and visit notes be faxed to . [employer] Applicator faxed over requested documents. Patient appointment confirmation letter generated and mailed to her home address. Patient to call to schedule an appointment.[facility]edRef[facility]: [facility] [address] [facility] [address] WaopioZP[address] USPatient notified that it has been advised that she be seen by Neurology. Patient agreed to be seen and prefers to be seen by a provider in the [place], [place] area. Patient denies any concerns with transportation, and prefers to schedule her own appointment. [employer] Applicator placed a call out to [facility] and spoke with Neeraj [...] Assessment and plan reviewed with patient . [id number] Right wrist pain routine follow up with Dr Watson-orthopedics last appt 07/14/2020-record requested quit outpatient PT as didn't feel it was helpful MRI with contrast per orthopedics completed 06/30/2020- per patiet revealed torn ligament to right wrist-record requested in process of being referred to hand account management specialist-will send information when available [id number] Type 2 diabetes mellitus with peripheral neuropathy testing BID and PRN if feeling symptomatic 125-132 patient reports feeling symptomatic for BS >100, Metformin increased to 1000mg BID received new monitor [employer] through [facility]-participant of Johnathan on demand - will send all diabetic [...] anxiety and depressed mood routine follow up [facility] 08/19/2020 PHQ 9 Scoere 1, admits to [...] new appt for pap in June 2020-[facility] Supervisor/Instructor-reports pap negative-recordsrequested Z01.89-V72.85 Encounter for screening for [...] visit verbalized understanding of all above topics. 08/19/2020 Medical Equipment No Medical Equipment data Advance Directives No Advance Directive data
--- OUTSIDE RECORDS SUMMARY | 2023-12-07 02:13 | XMS_ITS | CCD ---
Author Name Leena Culver NP Address [address] [place] [address] [place] [address] Phone Organization [employer] [facility] Phone Care Team Providers Care Staffing Executive Name Role Phone Anna Culver NP Primary Care Provider Unav ailable Unavailable Chronic Care Management Unavaila ble Summary Purpose DataExchange Insurance Providers Payer name Policy type / Coverage type Covered republican ID Effective Begin Date Effective End Date SUKI MAYO [id number] Unknown Unknown Family history Mother Diagnosis Age [...] 05/31/2018 Education level Unknown Some High School 10th05/31/20181210WlazqjucsjXbcixezTdvciypekw00/29/2018Tobacco historySNOMED CT: 240871287Tyc never smoked or chewed ysybedv7405/31/2018Alcohol historySNOMED CT: 668344164Bylxs drinks oroauho1005/31/2018Has the patient ever used illegal drugs? UnknownHas never used illegal drugs05/31/2018DNR Order/ Advanced Directive UnknownFull Code05/31/2018 Allergies, Adverse Reactions, Alerts Substance Reaction Codes Entered Date Inactivated Date Status *No known food allergies Fhyazje2209/06/2018No Inactive DateActiveMethylprednisolonehivesRxNorm: 6902 09/06/2018No Inactive DateActive Problems Condition Codes Effective Dates Condition St atus Essential (primary) hypertension ICD-10: I10 ICD-9: 401.9010/03/2018ActiveType 2 diabetes mellitus with peripheral neuropathy ICD-10: E11.42 ICD-9: 250.6002/ActiveEncounter for screening, unspecifiedICD-10: Z13.9 ICD-9: V82.912Active(Z12.4-V76.2) Encounter for screening for malignant neoplasm of cervixICD-10: Z12.4 ICD-9: V76.207/ActiveChronic kidney disease, unspecifiedICD-10: N18.9 ICD-9: 585.909/ActiveEncounter for immunizationICD-10: Z23 ICD-9: V04.8109ActiveHyperlipidemia, unspecifiedICD-10: E78.5 [...] H10.029 ICD-9: 372.0303ActiveSyncope and collapseICD-10: R55 ICD-9: 780.203/ActiveFecal incontinenceICD-10: R15.9 [...] ICD-9: 356.908ActivePatient Not SeenICD-10: UXZ.01 ICD-9: XZ0.107ActiveOther intermediate manager (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ICD-10: Z79.899 ICD-9: V58.6907/ActiveChest pain, [...] Fill Instructions gabapentin 300 mg capsule RxNorm: 688389 TAKE 1 CAPSULE BY MOUTH THREE TIMES DAILY 07/11/20 20 2020 Inactive cetirizine 10 mg tablet RxNorm: 7074749 TAKE (1) TABLET BY MOUTH DAILY 07/11/20 20 2020 Inactive metformin 500 mg tablet RxNorm: 252087 1 Tablet(s) Oral two times a day 07/08/20 20 2019 Inactive loperamide 2 mg tablet RxNorm: 031706 1 Tablet(s) Oral as needed take one tablet after each loose stool, maximum of 8 tablets in 24 hours 06/24/20 20 2021 Inactive Sudafed 12 Hour 120 mg tablet,extended release RxNorm: 4752969 TAKE 1 TABLET BY MOUTH EVERY 12 HOURS NEEDED 06/11/20 20 2019 Inactive hydrochlorothiazide 25 mg tablet RxNorm: 195704 TAKE (1) TABLET BY MOUTH EVERY DAY 06/11/20 20 2019 Inactive omeprazole 20 mg capsule,delayed release RxNorm: 739421 TAKE 1 CAPSULE BY MOUTH EVERY DAY 05/14/20 20 2020 Inactive metformin 500 mg tablet RxNorm: 019633 1 Tablet(s) Oral every day 05/12/20 20 2019 Inactive True Metrix Glucose Test Strip RxNorm: 1 Test Strips Miscellaneous two times a day as needed 04/17/20 No Stop Date Active metformin 500 mg tablet RxNorm: 567966 1 Tablet(s) Oral every day 04/17/20 20 2019 Inactive diclofenac sodium 75 mg tablet,delayed release RxNorm: 212709 1 Tablet(s) PO BID 04/14/20 20 2021 Inactive This refill negates all other refills of this medication Sudafed 12 Hour 120 mg tablet,extended release RxNorm: 9096848 TAKE 1 TABLET BY MOUTH EVERY 12 HOURS NEEDED 03/14/20 20 2019 Inactive True Metrix Glucose Test Strip RxNorm: 1 Test Strips Miscellaneous every morning 03/13/20 20 2019 Inactive 100/container True Metrix Glucose Test Strip RxNorm: 1 Test Strips Miscellaneous QAM 02/22/20 20 2019 Inactive 100/container loperamide 2 mg tablet RxNorm: 436262 1 Tablet(s) Oral as needed take one tablet after each loose stool, maximum of 8 tablets in 24 hours 02/22/20 20 2019 Inactive levothyroxine 50 mcg tablet RxNorm: 975519 1 Tablet(s) PO daily 01/17/20 20 2020 Inactive cetirizine 10 mg tablet RxNorm: 0562932 1 Tablet(s) PO daily 01/17/20 20 2019 Inactive loperamide 2 mg tablet RxNorm: 584593 1 Tablet(s) Oral as needed take one tablet after each loose stool, maximum of 8 tablets in 24 hours 01/17/20 20 2019 Inactive quetiapine 100 mg tablet RxNorm: 180575 1 Tablet(s) Oral every night at bedtime 01/17/20 20 2019 Inactive gabapentin 300 mg capsule RxNorm: 148643 1 Capsule(s) PO TID 01/17/20 20 2019 Inactive lisinopril 2.5 mg tablet RxNorm: 149345 1 Tablet(s) PO daily 01/15/20 20 2020 Inactive Singulair 10 mg tablet RxNorm: 742380 1 Tablet(s) PO daily 01/15/20 20 04/04/ 2021 Inactive levothyroxine 50 mcg tablet RxNorm: 961869 1 Tablet(s) PO daily 01/15/20 20 2019 Inactive gabapentin 300 mg capsule RxNorm: 138547 1 Capsule(s) PO TID 01/15/20 20 2019 Inactive cetirizine 10 mg tablet RxNorm: 8856202 1 Tablet(s) PO daily 01/15/20 20 2019 Inactive gentamicin 0.3 % eye drops RxNorm: 487332 1 Drop(s) ophthalmic (eye) four times a day 12/29/19 20 2019 Inactive gentamicin 0.3 % eye drops RxNorm: 897147 1 Drop(s) ophthalmic (eye) four times a day 12/29/19 20 2019 Inactive gentamicin 0.3 % eye drops RxNorm: 479745 1 Drop(s) ophthalmic (eye) four times a day 12/29/19 20 2019 Inactive hydrochlorothiazide 25 mg tablet RxNorm: 986924 1 Tablet(s) Oral every day 12/21/19 20 2019 Inactive Sudafed 12 Hour 120 mg tablet,extended release RxNorm: 1678017 TAKE (1) TABLET BY MOUTH EVERY 12 HOURS NEEDED 12/21/19 20 2019 Inactive loperamide 2 mg tablet RxNorm: 147279 1 Tablet(s) Oral as needed take one tablet after each loose stool, maximum of 8 tablets in 24 hours 12/11/19 20 2019 Inactive loperamide 2 mg tablet RxNorm: 306849 1 Tablet(s) Oral as needed take one tablet after each loose stool, maximum of 8 tablets in 24 hours 12/11/19 20 2019 Inactive atorvastatin 40 mg tablet RxNorm: 238858 1 Tablet(s) Oral every day 11/29/19 20 2020 Inactive quetiapine 100 mg tablet RxNorm: 570986 1 Tablet(s) Oral every night at bedtime 11/28/19 20 2019 Inactive sertraline 100 mg tablet RxNorm: 274715 1 Tablet(s) Oral 11/28/19 20 2019 Inactive omeprazole 20 mg capsule,delayed release RxNorm: 293047 1 Capsule(s) Oral every day 11/20/19 20 2019 Inactive amoxicillin 250 mg capsule RxNorm: 475757 1 Capsule(s) Oral three times a day 11/07/19 20 2019 Inactive multivitamin with iron-mineral tablet RxNorm: 1 Tablet(s) Oral every day 10/29/19 20 2021 Inactive cetirizine 10 mg tablet RxNorm: 3715751 1 Tablet(s) PO daily 10/20/19 20 2019 Inactive This refill negates all other refills of this medication. Please do not auto refill Singulair 10 mg tablet RxNorm: 672402 1 Tablet(s) PO daily 10/20/19 20 2019 Inactive This refill negates all other refills of this medication gabapentin 300 mg capsule RxNorm: 858483 1 Capsule(s) PO TID 10/20/19 20 2019 Inactive lisinopril 2.5 mg tablet RxNorm: 484026 1 Tablet(s) PO daily 10/20/19 20 2019 Inactive levothyroxine 50 mcg tablet RxNorm: 199519 1 Tablet(s) PO daily 10/20/19 20 2019 Inactive This refill negates all other refills of this medication fenugreek seed extract 500 mg capsule RxNorm: 1 Capsule(s) Oral three times a day 10/17/19 20 2021 Inactive hydrochlorothiazide 25 mg tablet RxNorm: 453908 1 Tablet(s) Oral every day 10/17/19 20 2019 Inactive Alcohol Prep Pads RxNorm: 284269 1 Patch TOP QAM 10/16/19 20 2020 Inactive loperamide 2 mg tablet RxNorm: 972123 1 Tablet(s) Oral as needed take one [...] 2019 Inactive hydrochlorothiazide 25 mg tablet RxNorm: 134966 1 Tablet(s) Oral every day 09/19/20 19 2019 Inactive Sudafed 12 Hour 120 mg tablet,extended release RxNorm: 1726951 1 Tablet(s) Oral every 12 hours as needed 09/11/20 19 2018 Inactive omeprazole 20 mg capsule,delayed release RxNorm: 629481 1 Capsule(s) Oral every day 09/07/20 19 2019 Inactive Sudafed 12 Hour 120 mg tablet,extended release RxNorm: 3963751 1 Tablet(s) Oral every 12 hours as needed 09/04/20 19 2018 Inactive pantoprazole 40 mg tablet,delayed release RxNorm: 336996 1 Tablet(s) Oral every day 08/24/20 19 2018 Inactive discontinue any other H2Blkr. and PPI albuterol sulfate 2.5 mg/3 mL (0.083 %) solution for nebulization RxNorm: 793907 1 Vial Inhalation every four hours as needed as needed for dyspnea 08/17/20 19 2019 Inactive 60/box. This refill negates all other refills of this medication. Please do not fill early. Please do not auto refill. Symbicort 160 mcg-4.5 mcg/actuation HFA aerosol inhaler RxNorm: 0200193 2 Puff(s) INH BID 08/17/20 19 No Stop Date Active Alcohol Prep Pads RxNorm: 314181 1 Patch TOP QAM 08/17/20 19 2019 Inactive Ventolin HFA 90 mcg/actuation aerosol inhaler RxNorm: 903324 2 Puff(s) INH QID 08/09/20 19 2019 Inactive Please do not fill early. Please do not auto refill. This refill negates all other refills of this medication True Metrix Glucose Test Strip RxNorm: 1 Test Strips Miscellaneous QAM 08/09/20 19 2019 Inactive 100/container atorvastatin 40 mg tablet RxNorm: 601357 1 Tablet(s) Oral every day 07/04/20 19 2019 Inactive levmetamfetamine 50 mg nasal inhaler RxNorm: 1 Unit(s) NASAL Q3-4H Do not use more than every 3 hours or 8 times/24hours 06/26/20 19 2021 Inactive Please do not auto refill. This refill negates all other refills of this medication buspirone 7.5 mg tablet RxNorm: 481273 1 Tablet(s) PO BID 06/26/20 19 2020 Inactive This refill negates all other refills of this medication hydrochlorothiazide 12.5 mg tablet RxNorm: 694860 1 Tablet(s) PO QAM 06/26/20 19 2019 Inactive Ventolin HFA 90 mcg/actuation aerosol inhaler RxNorm: 679289 2 Puff(s) INH QID 06/26/20 19 2018 Inactive Please do not fill early. Please do not auto refill. This refill negates all other refills of this medication Singulair 10 mg tablet RxNorm: 640049 1 Tablet(s) PO daily 06/26/20 19 2019 Inactive This refill negates all other refills of this medication cetirizine 10 mg tablet RxNorm: 0760281 1 Tablet(s) PO daily 06/26/20 19 2019 Inactive This refill negates all other refills of this medication. Please do not auto refill levothyroxine 50 mcg tablet RxNorm: 063782 1 Tablet(s) PO daily 06/26/20 19 2019 Inactive This refill negates all other refills of this medication diclofenac sodium 75 mg tablet,delayed release RxNorm: 730696 1 Tablet(s) PO BID 06/26/20 19 2019 Inactive This refill negates all other refills of this medication ranitidine 150 mg tablet RxNorm: 610516 1 Tablet(s) PO BID 06/26/20 19 2018 Inactive This refill negates all other refills of this medication Calcium 600-D3 Plus (mag-zinc) 600 mg calcium-800 unit-50 mg tablet RxNorm: 1 Tablet(s) PO daily take an additonal tablet for itching. 06/26/20 19 2018 Inactive This refill negates all other refills of this medication albuterol sulfate 2.5 mg/3 mL (0.083 %) solution for nebulization RxNorm: 112164 1 Vial INH QID 06/26/20 19 2018 Inactive 60/box. This refill negates all other refills of this medication. Please do not fill early. Please do not auto refill. lisinopril 2.5 mg tablet RxNorm: 046076 1 Tablet(s) PO daily 06/21/20 19 2019 Inactive gabapentin 300 mg capsule RxNorm: 454011 1 Capsule(s) PO TID 06/21/20 19 2019 Inactive atorvastatin 20 mg tablet RxNorm: 174459 1 Tablet(s) PO QHS 06/07/20 19 2018 Inactive This refill negates all other refills of this medication TRUEplus Lancets 30 gauge RxNorm: 1 Lancets Miscellaneous QAM 05/29/20 19 2018 Inactive 100/box gabapentin 300 mg capsule RxNorm: 558535 1 Capsule(s) PO TID 05/03/20 19 2018 Inactive Flintsmaury Complete (iron) 18 mg iron chewable tablet RxNorm: 1 Tablet(s) PO daily 04/04/20 19 2021 Inactive This refill negates all other refills of this medication gabapentin 300 mg capsule RxNorm: 272722 1 Capsule(s) PO TID as needed 02/01/20 19 2018 Inactive True Metrix Glucose Test Strip RxNorm: 1 Test Strips Miscellaneous QAM 02/01/20 19 2018 Inactive 100/container Alcohol Prep Pads RxNorm: 482950 1 Patch TOP QAM 02/01/20 19 2018 Inactive TRUEplus Lancets 30 gauge RxNorm: 1 Lancets Miscellaneous QAM 02/01/20 19 2018 Inactive 100/box lisinopril 2.5 mg tablet RxNorm: 305117 1 Tablet(s) PO daily 12/28/192018 Inactive ranitidine 150 mg tablet RxNorm: 460807 1 Tablet(s) PO BID 10/21/192018 Inactive This refill negates all other refills of this medication albuterol sulfate 2.5 mg/3 mL (0.083 %) solution for nebulization RxNorm: 981431 1 Vial INH QID 10/21/192018 Inactive 60/box. [...] this medication gabapentin 300 mg capsule RxNorm: 918241 1 Capsule(s) PO TID as needed 10/21/19 19 2018 Inactive atorvastatin 20 mg tablet RxNorm: 574798 1 Tablet(s) PO QHS 10/21/192018 Inactive This refill negates all other refills of this medication trazodone 50 mg tablet RxNorm: 600331 1 Tablet(s) PO QHS 10/21/192018 Inactive This refill negates all other refills of this medication Ventolin HFA 90 mcg/actuation aerosol inhaler RxNorm: 212941 2 Puff(s) INH QID 10/21/192018 Inactive Please do not fill early. Please do not auto refill. This refill negates all other refills of this medication Calcium 600-D3 Plus 600 mg calcium-800 unit-50 mg tablet RxNorm: 1 Tablet(s) PO daily take an additonal tablet for itching. 10/21/192018 Inactive This refill negates all other refills of this medication Singulair 10 mg tablet RxNorm: 448972 1 Tablet(s) PO daily 10/21/192018 Inactive This refill negates all other refills of this medication buspirone 7.5 mg tablet RxNorm: 886105 1 Tablet(s) PO BID 10/21/19 19 2018 Inactive This refill negates all other refills of this medication diclofenac sodium 75 mg tablet,delayed release RxNorm: 986670 1 Tablet(s) PO BID 10/21/19 19 2018 Inactive This refill negates all other refills of this medication hydrochlorothiazide 12.5 mg tablet RxNorm: 827002 1 Tablet(s) PO QAM 10/21/192018 Inactive metoprolol succinate ER 50 mg tablet,extended release 24 hr RxNorm: 195503 1 Tablet(s) PO daily 10/21/19 19 2018 Inactive This refill negates all other refills of this medication levothyroxine 50 mcg tablet RxNorm: 494920 1 Tablet(s) PO daily 10/21/19 19 2018 Inactive This refill negates all other refills of this medication cetirizine 10 mg tablet RxNorm: 5559908 1 Tablet(s) PO daily 10/21/192018 Inactive This refill negates all other refills of this medication. Please do not auto refill Flintstones Complete (iron) 18 mg iron chewable tablet RxNorm: 1 Tablet(s) PO daily 10/21/192018 Inactive This refill negates all other refills of this medication buspirone 7.5 mg tablet RxNorm: 533928 1 Tablet(s) PO BID 10/12/192018 Inactive cetirizine 10 mg tablet RxNorm: 2053189 1 Tablet(s) PO daily 09/28/202018 Inactive Guaiasorb DM 10 mg-100 mg/5 mL oral liquid RxNorm: 424628 10 Milliliter(s) PO As needed every 4 hr 09/24/202018 Inactive Vicks Vaporub 4.7 %-1.2 %-2.6 % topical ointment RxNorm: 5366372 1 Application TOP TID 09/24/20 18 2018 Inactive levmetamfetamine 50 mg nasal inhaler RxNorm: 1 Unit(s) NASAL Q3-4H 09/24/20 18 2017 Inactive sertraline 50 mg tablet RxNorm: 370367 1 Tablet(s) PO daily 09/09/20 18 2018 Inactive Please note dose trazodone 50 mg tablet RxNorm: 107840 1 Tablet(s) PO QHS 09/06/20 18 2018 Inactive sertraline 50 mg tablet RxNorm: 390852 1 Tablet(s) PO daily 09/06/20 18 2017 Inactive amoxicillin 500 mg tablet RxNorm: 198663 1 Tablet(s) PO Q12H 08/31/20 18 2017 Inactive albuterol sulfate 2.5 mg/3 mL (0.083 %) solution for nebulization RxNorm: 852243 1 Vial INH QID 08/10/20 18 2018 Inactive 60/box. Please do not fill early. Please do not auto refill. Prozac 10 mg capsule RxNorm: 224621 1 Capsule(s) PO daily 08/09/20 18 2017 Inactive buspirone 7.5 mg tablet RxNorm: 589883 1 Tablet(s) PO BID 08/09/20 18 2018 Inactive gabapentin 300 mg capsule RxNorm: 525224 1 Capsule(s) PO TID as needed 08/01/20 18 2018 Inactive hydrochlorothiazide 12.5 mg tablet RxNorm: 771784 1 Tablet(s) PO QAM 08/01/20 18 2018 Inactive ranitidine 150 mg tablet RxNorm: 779403 1 Tablet(s) PO BID 08/01/20 18 2018 Inactive Macrobid 100 mg capsule RxNorm: 532113 1 Capsule(s) PO Q12H 06/21/20 18 2017 Inactive Singulair 10 mg tablet RxNorm: 590119 1 Tablet(s) PO daily 06/14/20 18 2018 Inactive Ventolin HFA 90 mcg/actuation aerosol inhaler RxNorm: 1596785 2 Puff(s) INH QID 06/14/20 18 2018 Inactive Singulair 10 mg tablet RxNorm: 164780 1 Tablet(s) PO daily 06/14/20 18 2017 Inactive buspirone 7.5 mg tablet RxNorm: 683477 1 Tablet(s) PO BID 06/14/20 18 2017 Inactive Prozac 10 mg capsule RxNorm: 515671 1 Capsule(s) PO daily 06/14/20 18 2017 Inactive Neilmed Pediatric Sinus Rinse Refill packet RxNorm: 1 Unit Dose NASAL PRN 05/31/20 18 2021 Inactive diclofenac sodium 75 mg tablet,delayed release RxNorm: 759674 1 Tablet(s) PO BID 05/31/20 18 2017 Inactive lisinopril 2.5 mg tablet RxNorm: 848980 1 Tablet(s) PO daily 05/31/20 18 2017 Inactive metoprolol succinate ER 50 mg tablet,extended release 24 hr RxNorm: 578535 1 Tablet(s) PO daily 05/31/20 18 2017 Inactive levothyroxine 50 mcg tablet RxNorm: 253052 1 Tablet(s) PO daily 05/31/20 18 2017 Inactive TRUEplus Lancets 30 gauge RxNorm: 1 Lancets Miscellaneous QAM 05/31/20 18 2017 Inactive 100/box Ventolin HFA 90 mcg/actuation aerosol inhaler RxNorm: 272806 2 Puff(s) INH QID 05/31/20 18 2017 Inactive Aleve 220 mg capsule RxNorm: 8887388 1 Capsule(s) PO BID 05/31/20 18 2018 Inactive ranitidine 150 mg tablet RxNorm: 640814 1 Tablet(s) PO BID 05/31/20 18 2017 Inactive gabapentin 300 mg capsule RxNorm: 425326 1 Capsule(s) PO TID as needed 05/31/20 18 2017 Inactive atorvastatin 20 mg tablet RxNorm: 222926 1 Tablet(s) PO QHS 05/31/20 18 2017 Inactive True Metrix Glucose Test Strip RxNorm: 1 Test Strips Miscellaneous QAM 05/31/20 18 2017 Inactive 50/container Calcium 600-D3 Plus 600 mg calcium-800 unit-50 mg tablet RxNorm: 1 Tablet(s) PO daily take an additonal tablet for itching. 05/31/20 18 2017 Inactive hydrochlorothiazide 12.5 mg tablet RxNorm: 011216 1 Tablet(s) PO QAM 05/31/20 18 2017 Inactive Flintstones Complete (iron) 18 mg iron chewable tablet RxNorm: 1 Tablet(s) PO daily 05/31/20 18 2017 Inactive d-mannose oral powder RxNorm: PO 18 2021 Inactive True Metrix Glucose Meter RxNorm: miscellaneous 08/17/20 19 2018 Inactive sertraline 50 mg tablet RxNorm: 981421 1 Tablet(s) PO daily 11/28/19 20 2019 Inactive loperamide 2 mg tablet RxNorm: 205929 oral 09/29/20 19 2018 Inactive Symbicort 160 mcg-4.5 mcg/actuation HFA aerosol inhaler RxNorm: 6914811 2 Puff(s) INH BID 08/17/202018 Inactive Medication Administered No Medication Administered data Procedures Procedure Codes Date Electrocardiogram CPT-4: 78301 05/14/2020 Tobacco Assessment/Screening CPT-4: TCA Fall Risk Assessment [facility]: 60942093 4 CPT-4: DFRA01/01/2020Functional AssessmentCPT-4: DFA01/01/2020[place] Fany AssessmentCPT-4: DSWA11/28/2019Patient Health QuestionnaireCPT-4: DPHQ11/28/2019 [place] Fany AssessmentCPT-4: DSWA10/17/2019HypertensionCPT-4: HTN10/17/2019 [facility] CPT-4: DFRA09/19/2019Functional AssessmentCPT-4: DFA111/20/2018Urinalysis, dip stickCPT-4: 987647106/21/2019Tobacco Assessment/ScreeningCPT-4: TCA05/24/2019 Patient Health QuestionnaireCPT-4: DPHQ05/24/2019AHA/REBECCA Classification AssessmentCPT-4: DAHA04/25/2019Controlled Substance ReportCPT-4: CTRSU07 Urinalysis, dip stickCPT-4: 155202103/28/2019Urinalysis, dip stickCPT-4: 38018 03/28/20190795M2N-TifvsmbcfaiufprKAB-0: 58166DnjrtkiY8G-PifbfkbsyguemdqDBK-7: 03161 XutwhfnD2S-LczdfanpqxhnbdzBYW-2: 16024SspekayX3L-DqcbumtyvltqhxzDLL-3: [address]: 757781352 CPT-4: G06Vmkcfbt Reason For Visit Reason For Visit Effective Dates Notes hypertension 07/22/2020 diabetes mellitus 07/22/2020 mole check 07/22/2020 Interim health update 07/22/2020 Encounters Encounter Performer Location Location Address Codes Magdi e ([id number]) (EST PT) PROBLEM FOC USED TELEHEALTH VISIT Diagnosis: Type 2 diabetes mellitus with peripheral neuropathy[ICD10: E11.42] Diagnosis: Essential (primary) hypertension[ICD10: I10]Anna Bourgeois [address] [place] [address] 31503OWN-9: 13610 07/22/2020 Plan of Care Planned Activity Notes [...] remain elevated received new monitor Biotel through [facility]-participant of [employer] on demand -will send all diabetic supplies to patient 04/14/2020 hemoglobin 5.6 10/17/2019 Hemoglobin A1C 6.0 07/04/2019 Hgb A1C 5.6 10/17/2019 [place] Fany 10-instructed on good daily foot care routine [...] anxiety and depressed mood routine follow up [place] [facility] E03.9-244.9 Hypothyroidism, unspecified cont levothyroxine E78.5-272.4 Hyperlipidemia, [...] new appt for pap in June 2020-[facility]-reports pap negative-records requested Z01.89-V72.85 Encounter for screening [...] visit verbalized understanding of all above topics. 07/22/2020Patient Education: Patient Medication YiprsnaWdnaaneoq56/20/2020 Appointment: Anna Culver WPtel: [address] [place] [address] [id number]: Gainna [place]: [id number]: Anna Culver WPtel: [address] [place] [address] [id number]: Anna Culver WPtel: [address] [place] [address] [id number]: Anna Culver WPtel: [address] [place] [address] [id number]: Anna Culver WPtel: [address] [place] [address] [id number]: Anna Culver WPtel: [address] [place] [address] [id number]: Anna Culver WPtel: [address] [place] [address] [id number]: nAna Culver WPtel: [address] [place] [address] [id number]: Anna Culver WPtel: [address] [place] [address] [id number]: Anna Culver WPtel: [address] [place] [address] [id number]: Anna Culver WPtel: [address] [place] [address] [id number]/20/2018Appointment: Sudha Hernadez WPtel: [facility] [id number]: Sudha Hernadez WPtel: [address] [facility] [id number]: Charlene Oropeza WPtel: [address] [facility] [id number]: Enedelia [id number]: Charlene Oropeza WPtel: [address] [facility] [address] [id number]: Rasta Palafox WPtel: [address] [facility] [address] [id number]: Rasta Palafox WPtel: [address] [facility] [address] [id number]: Rasta Palafox WPtel: [address] [facility] [address] [id number]: Rasta Palafox WPtel: [address] [facility] [address] [id number]: Pending Gynecology Referral InformationReferral ProcessedReferral: Pending Pulmonology Referral InformationReferralProcessed Referral: Pending Psychiatry Referral InformationReferralInitiatedReferral: Pending Respiratory Services Referral InformationReferralInitiatedReferral: Pending Ophthalmology Referral InformationReferralInitiatedReferral: [facility] WPtel: [address] [place], [place] [id number] USWriter placed a call out to the patient to notify her that it has been recommended that she be seenby a urologist. Patient agreed to be seen, does not have a provider of choice and no transportationissues. Audit Practice Intern faxed referral and clinical notes to [facility] in [place], [place] near the patient's home. Patient to [...] seen and prefers a provider in the [place] [facility]. Audit Practice Intern placed a call out to everyone listed in the area and the only location that was able to accept the patient's insurance was [address] [address] and spoke with Maylin. Maylin asked that the patient's referral, face sheet and visit notes be faxed to . Audit Practice Intern faxed over requested documents. Patient appointment confirmation letter generated and mailed to her home address. Patient to call to schedule an appointment.ProcessedReferral: [facility] WPtel: [address] [facility] [address] [id number] USPatient notified that it has been advised that she be seen by Neurology. Patient agreed to be seen and prefers to be seen by a provider in the [place], [place] area. Patient denies any concerns with transportation, and prefers to schedule her own appointment. Audit Practice Intern placed a call out to [facility] and spoke with Neeraj Mcfarland: who confirmed that their office is able to acceptnew patients and the patient's insurance. After confirming the providers fax number, bid writer faxed over the patient's referral, and most recent clinical notes to F: . Patient to call to schedule her appointment. Appointment confirmation letter mailed to the patient's home address. CCDA completed.ProcessedReferral: Pending Nephrology Referral InformationReferralProcessedReferral: Pending Podiatry Referral Information ReferralInitiatedReferral: Pending Podiatry Referral InformationReferral ProcessedReferral: Pending Podiatry Referral InformationReferralInitiated Instructions Comment Date Assessment and plan reviewed with patient . [id number] Right wrist pain routine follow up with [...] remain elevated received new monitor [employer] through [employer]-participant of [employer] - will send all diabetic supplies to patient 04/14/2020 hemoglobin 5.6; 10/17/2019 Hemoglobin A1C 6.0; 07/04/2019 Hgb A1C 5.6 10/17/2019 Inocente Ozunastein 04/11-instructed on good daily foot care routine [...] anxiety and depressed mood routine follow up [place] [facility] E03.9-244.9 Hypothyroidism, unspecified cont levothyroxine E78.5-272.4 Hyperlipidemia, [...] new appt for pap in June 2020-[facility]-reports pap negative-recordsrequested Z01.89-V72.85 Encounter for screening for [...]
--- OUTSIDE RECORDS SUMMARY | 2023-12-07 02:13 | XMS_ITS | CCD ---
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 Complaint Adjuster Name Role Phone Palomo KING, Anna Primary Care Provider Unav ailable Unavailable Chronic Care Management Unavaila ble Summary Purpose DataExchange Insurance Providers Payer name Policy type / Coverage type Covered alliance party ID Effective Begin Date Effective End Date [facility] [facility] [id number] Unknown Unknown Family history Mother Diagnosis Age [...] 05/31/2018 Education level Unknown Some High School 10th05/31/20180648AbhnkgupjgPpxpcjdWytehcahpj48/29/2018Tobacco historySNOMED CT: 681237173Rap never smoked or chewed vgsinui7105/31/2018Alcohol historySNOMED CT: 061652723Lpcpw drinks akbaswo3405/31/2018Has the patient ever used illegal drugs? UnknownHas never used illegal drugs05/31/2018DNR Order/ Advanced Directive UnknownFull Code05/31/2018 Allergies, Adverse Reactions, Alerts Substance Reaction Codes Entered Date Inactivated Date Status *No known food allergies Ewczkue6009/06/2018No Inactive DateActiveMethylprednisolonehivesRxNorm: 6902 09/06/2018No Inactive DateActive Problems Condition Codes Effective Dates Condition St atus Encounter for screening, unspecified ICD -10: Z13.9 ICD-9: V82.9111/06/2017ActiveEssential (primary) hypertensionICD-10: I10 ICD-9: 401.9010/03/2018ActiveType 2 diabetes mellitus with [...] ICD-9: 356.908ActivePatient Not SeenICD-10: UXZ.01 ICD-9: XZ0.107ActiveOther terminal make up operator (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ICD-10: Z79.899 ICD-9: V58.6907ActiveChest [...] Fill Instructions gabapentin 300 mg capsule RxNorm: 558763 TAKE 1 CAPSULE BY MOUTH THREE TIMES DAILY 07/11/20 20 2020 Inactive cetirizine 10 mg tablet RxNorm: 2581970 TAKE (1) TABLET BY MOUTH DAILY 07/11/20 20 2020 Inactive metformin 500 mg tablet RxNorm: 624207 1 Tablet(s) Oral two times a day 07/08/20 20 2019 Inactive loperamide 2 mg tablet RxNorm: 209928 1 Tablet(s) Oral as needed take one tablet after each loose stool, maximum of 8 tablets in 24 hours 06/24/202021 Inactive Sudafed 12 Hour 120 mg tablet,extended release RxNorm: 9158505 TAKE 1 TABLET BY MOUTH EVERY 12 HOURS NEEDED 06/11/20 20 2019 Inactive hydrochlorothiazide 25 mg tablet RxNorm: 977013 TAKE (1) TABLET BY MOUTH EVERY DAY 06/11/202019 Inactive omeprazole 20 mg capsule,delayed release RxNorm: 289938 TAKE 1 CAPSULE BY MOUTH EVERY DAY 05/14/20 20 2020 Inactive metformin 500 mg tablet RxNorm: 666773 1 Tablet(s) Oral every day 05/12/202019 Inactive True Metrix Glucose Test Strip RxNorm: 1 Test Strips Miscellaneous two times a day as needed 04/17/20 No Stop Date Active metformin 500 mg tablet RxNorm: 682474 1 Tablet(s) Oral every day 04/17/20 20 2019 Inactive diclofenac sodium 75 mg tablet,delayed release RxNorm: 460282 1 Tablet(s) PO BID 04/14/20 20 2021 Inactive This refill negates all other refills of this medication Sudafed 12 Hour 120 mg tablet,extended release RxNorm: 5068748 TAKE 1 TABLET BY MOUTH EVERY 12 HOURS NEEDED 03/14/20 20 2019 Inactive True Metrix Glucose Test Strip RxNorm: 1 Test Strips Miscellaneous every morning 03/13/20 20 2019 Inactive 100/container True Metrix Glucose Test Strip RxNorm: 1 Test Strips Miscellaneous QAM 02/22/20 20 2019 Inactive 100/container loperamide 2 mg tablet RxNorm: 070746 1 Tablet(s) Oral as needed take one tablet after each loose stool, maximum of 8 tablets in 24 hours 02/22/20 20 2019 Inactive levothyroxine 50 mcg tablet RxNorm: 410782 1 Tablet(s) PO daily 01/17/20 20 2020 Inactive cetirizine 10 mg tablet RxNorm: 6082955 1 Tablet(s) PO daily 01/17/20 20 2019 Inactive loperamide 2 mg tablet RxNorm: 429629 1 Tablet(s) Oral as needed take one tablet after each loose stool, maximum of 8 tablets in 24 hours 01/17/20 20 2019 Inactive quetiapine 100 mg tablet RxNorm: 542125 1 Tablet(s) Oral every night at bedtime 01/17/20 20 2019 Inactive gabapentin 300 mg capsule RxNorm: 867317 1 Capsule(s) PO TID 01/17/20 20 2019 Inactive lisinopril 2.5 mg tablet RxNorm: 118763 1 Tablet(s) PO daily 01/15/20 20 2020 Inactive Singulair 10 mg tablet RxNorm: 525837 1 Tablet(s) PO daily 01/15/20 20 2020 Inactive levothyroxine 50 mcg tablet RxNorm: 270997 1 Tablet(s) PO daily 01/15/20 20 2019 Inactive gabapentin 300 mg capsule RxNorm: 864259 1 Capsule(s) PO TID 01/15/20 20 2019 Inactive cetirizine 10 mg tablet RxNorm: 4015720 1 Tablet(s) PO daily 01/15/20 20 2019 Inactive gentamicin 0.3 % eye drops RxNorm: 216008 1 Drop(s) ophthalmic (eye) four times a day 12/29/19 20 2019 Inactive gentamicin 0.3 % eye drops RxNorm: 443573 1 Drop(s) ophthalmic (eye) four times a day 12/29/19 20 2019 Inactive gentamicin 0.3 % eye drops RxNorm: 954192 1 Drop(s) ophthalmic (eye) four times a day 12/29/19 20 2019 Inactive hydrochlorothiazide 25 mg tablet RxNorm: 946767 1 Tablet(s) Oral every day 12/21/19 20 2019 Inactive Sudafed 12 Hour 120 mg tablet,extended release RxNorm: 0789094 TAKE (1) TABLET BY MOUTH EVERY 12 HOURS NEEDED 12/21/19 20 2019 Inactive loperamide 2 mg tablet RxNorm: 645702 1 Tablet(s) Oral as needed take one tablet after each loose stool, maximum of 8 tablets in 24 hours 12/11/19 20 2019 Inactive loperamide 2 mg tablet RxNorm: 550975 1 Tablet(s) Oral as needed take one tablet after each loose stool, maximum of 8 tablets in 24 hours 12/11/19 20 2019 Inactive atorvastatin 40 mg tablet RxNorm: 804654 1 Tablet(s) Oral every day 11/29/19 20 2020 Inactive quetiapine 100 mg tablet RxNorm: 189528 1 Tablet(s) Oral every night at bedtime 11/28/19 20 2019 Inactive sertraline 100 mg tablet RxNorm: 912362 1 Tablet(s) Oral 11/28/19 20 2019 Inactive omeprazole 20 mg capsule,delayed release RxNorm: 376125 1 Capsule(s) Oral every day 11/20/19 20 2019 Inactive amoxicillin 250 mg capsule RxNorm: 833034 1 Capsule(s) Oral three times a day 11/07/19 2019 Inactive multivitamin with iron-mineral tablet RxNorm: 1 Tablet(s) Oral every day 10/29/19 20 2021 Inactive cetirizine 10 mg tablet RxNorm: 2174593 1 Tablet(s) PO daily 10/20/19 20 2019 Inactive This refill negates all other refills of this medication. Please do not auto refill Singulair 10 mg tablet RxNorm: 941792 1 Tablet(s) PO daily 10/20/192019 Inactive This refill negates all other refills of this medication gabapentin 300 mg capsule RxNorm: 604357 1 Capsule(s) PO TID 10/20/192019 Inactive lisinopril 2.5 mg tablet RxNorm: 616654 1 Tablet(s) PO daily 10/20/19 20 2019 Inactive levothyroxine 50 mcg tablet RxNorm: 308257 1 Tablet(s) PO daily 10/20/192019 Inactive This refill negates all other refills of this medication fenugreek seed extract 500 mg capsule RxNorm: 1 Capsule(s) Oral three times a day 10/17/19 20 2021 Inactive hydrochlorothiazide 25 mg tablet RxNorm: 450538 1 Tablet(s) Oral every day 10/17/19 20 2019 Inactive Alcohol Prep Pads RxNorm: 111385 1 Patch TOP QAM 10/16/19 20 2020 Inactive loperamide 2 mg tablet RxNorm: 027863 1 Tablet(s) Oral as needed take one [...] 2019 Inactive hydrochlorothiazide 25 mg tablet RxNorm: 338801 1 Tablet(s) Oral every day 09/19/20 19 2019 Inactive Sudafed 12 Hour 120 mg tablet,extended release RxNorm: 6979429 1 Tablet(s) Oral every 12 hours as needed 09/11/20 19 2018 Inactive omeprazole 20 mg capsule,delayed release RxNorm: 452337 1 Capsule(s) Oral every day 09/07/20 19 2019 Inactive Sudafed 12 Hour 120 mg tablet,extended release RxNorm: 4066842 1 Tablet(s) Oral every 12 hours as needed 09/04/20 19 2018 Inactive pantoprazole 40 mg tablet,delayed release RxNorm: 952518 1 Tablet(s) Oral every day 08/24/202018 Inactive discontinue any other H2Blkr. and PPI albuterol sulfate 2.5 mg/3 mL (0.083 %) solution for nebulization RxNorm: 492263 1 Vial Inhalation every four hours as needed as needed for dyspnea 08/17/20 19 2019 Inactive 60/box. This refill negates all other refills of this medication. Please do not fill early. Please do not auto refill. Symbicort 160 mcg-4.5 mcg/actuation HFA aerosol inhaler RxNorm: 6832566 2 Puff(s) INH BID 08/17/20 19 No Stop Date Active Alcohol Prep Pads RxNorm: 455756 1 Patch TOP QAM 08/17/20 19 2019 Inactive Ventolin HFA 90 mcg/actuation aerosol inhaler RxNorm: 749588 2 Puff(s) INH QID 08/09/20 19 2019 Inactive Please do not fill early. Please do not auto refill. This refill negates all other refills of this medication True Metrix Glucose Test Strip RxNorm: 1 Test Strips Miscellaneous QAM 08/09/20 19 2019 Inactive 100/container atorvastatin 40 mg tablet RxNorm: 434114 1 Tablet(s) Oral every day 07/04/20 19 2019 Inactive levmetamfetamine 50 mg nasal inhaler RxNorm: 1 Unit(s) NASAL Q3-4H Do not use more than every 3 hours or 8 times/24hours 06/26/20 19 2021 Inactive Please do not auto refill. This refill negates all other refills of this medication buspirone 7.5 mg tablet RxNorm: 840046 1 Tablet(s) PO BID 06/26/20 19 2020 Inactive This refill negates all other refills of this medication hydrochlorothiazide 12.5 mg tablet RxNorm: 359947 1 Tablet(s) PO QAM 06/26/20 19 2019 Inactive Ventolin HFA 90 mcg/actuation aerosol inhaler RxNorm: 257628 2 Puff(s) INH QID 06/26/20 19 2018 Inactive Please do not fill early. Please do not auto refill. This refill negates all other refills of this medication Singulair 10 mg tablet RxNorm: 860229 1 Tablet(s) PO daily 06/26/20 19 2019 Inactive This refill negates all other refills of this medication cetirizine 10 mg tablet RxNorm: 4729105 1 Tablet(s) PO daily 06/26/20 19 2019 Inactive This refill negates all other refills of this medication. Please do not auto refill levothyroxine 50 mcg tablet RxNorm: 739855 1 Tablet(s) PO daily 06/26/20 19 2019 Inactive This refill negates all other refills of this medication diclofenac sodium 75 mg tablet,delayed release RxNorm: 217723 1 Tablet(s) PO BID 06/26/20 19 2019 Inactive This refill negates all other refills of this medication ranitidine 150 mg tablet RxNorm: 043162 1 Tablet(s) PO BID 06/26/20 19 2018 Inactive This refill negates all other refills of this medication Calcium 600-D3 Plus (mag-zinc) 600 mg calcium-800 unit-50 mg tablet RxNorm: 1 Tablet(s) PO daily take an additonal tablet for itching. 06/26/20 19 2018 Inactive This refill negates all other refills of this medication albuterol sulfate 2.5 mg/3 mL (0.083 %) solution for nebulization RxNorm: 714677 1 Vial INH QID 06/26/20 19 2018 Inactive 60/box. This refill negates all other refills of this medication. Please do not fill early. Please do not auto refill. lisinopril 2.5 mg tablet RxNorm: 029145 1 Tablet(s) PO daily 06/21/20 19 2019 Inactive gabapentin 300 mg capsule RxNorm: 068990 1 Capsule(s) PO TID 06/21/20 19 2019 Inactive atorvastatin 20 mg tablet RxNorm: 532117 1 Tablet(s) PO QHS 06/07/202018 Inactive This refill negates all other refills of this medication TRUEplus Lancets 30 gauge RxNorm: 1 Lancets Miscellaneous QAM 05/29/20 19 2018 Inactive 100/box gabapentin 300 mg capsule RxNorm: 438693 1 Capsule(s) PO TID 05/03/20 19 2018 Inactive Flintsmaury Complete (iron) 18 mg iron chewable tablet RxNorm: 1 Tablet(s) PO daily 04/04/20 19 2021 Inactive This refill negates all other refills of this medication gabapentin 300 mg capsule RxNorm: 764271 1 Capsule(s) PO TID as needed 02/01/20 19 2018 Inactive True Metrix Glucose Test Strip RxNorm: 1 Test Strips Miscellaneous QA 02/01/20 19 2018 Inactive 100/container Alcohol Prep Pads RxNorm: 459958 1 Patch TOP QAM 02/01/20 19 2018 Inactive TRUEplus Lancets 30 gauge RxNorm: 1 Lancets Miscellaneous QAM 02/01/20 19 2018 Inactive 100/box lisinopril 2.5 mg tablet RxNorm: 131625 1 Tablet(s) PO daily 12/28/19 19 2018 Inactive ranitidine 150 mg tablet RxNorm: 170970 1 Tablet(s) PO BID 10/21/19 19 2018 Inactive This refill negates all other refills of this medication albuterol sulfate 2.5 mg/3 mL (0.083 %) solution for nebulization RxNorm: 277984 1 Vial INH QID 10/21/19 19 2018 [...] this medication gabapentin 300 mg capsule RxNorm: 175606 1 Capsule(s) PO TID as needed 10/21/19 19 2018 Inactive atorvastatin 20 mg tablet RxNorm: 654034 1 Tablet(s) PO QHS 10/21/192018 Inactive This refill negates all other refills of this medication trazodone 50 mg tablet RxNorm: 935323 1 Tablet(s) PO QHS 10/21/192018 Inactive This refill negates all other refills of this medication Ventolin HFA 90 mcg/actuation aerosol inhaler RxNorm: 045306 2 Puff(s) INH QID 10/21/192018 Inactive Please do not fill early. Please do not auto refill. This refill negates all other refills of this medication Calcium 600-D3 Plus 600 mg calcium-800 unit-50 mg tablet RxNorm: 1 Tablet(s) PO daily take an additonal tablet for itching. 10/21/192018 Inactive This refill negates all other refills of this medication Singulair 10 mg tablet RxNorm: 860521 1 Tablet(s) PO daily 10/21/192018 Inactive This refill negates all other refills of this medication buspirone 7.5 mg tablet RxNorm: 470519 1 Tablet(s) PO BID 10/21/192018 Inactive This refill negates all other refills of this medication diclofenac sodium 75 mg tablet,delayed release RxNorm: 937939 1 Tablet(s) PO BID 10/21/19 19 2018 Inactive This refill negates all other refills of this medication hydrochlorothiazide 12.5 mg tablet RxNorm: 822445 1 Tablet(s) PO QAM 10/21/19 19 2018 Inactive metoprolol succinate ER 50 mg tablet,extended release 24 hr RxNorm: 216380 1 Tablet(s) PO daily 10/21/19 19 2018 Inactive This refill negates all other refills of this medication levothyroxine 50 mcg tablet RxNorm: 208254 1 Tablet(s) PO daily 10/21/19 19 2018 Inactive This refill negates all other refills of this medication cetirizine 10 mg tablet RxNorm: 6218961 1 Tablet(s) PO daily 10/21/19 19 2018 Inactive This refill negates all other refills of this medication. Please do not auto refill Flintstones Complete (iron) 18 mg iron chewable tablet RxNorm: 1 Tablet(s) PO daily 10/21/19 19 2018 Inactive This refill negates all other refills of this medication buspirone 7.5 mg tablet RxNorm: 262456 1 Tablet(s) PO BID 10/12/19 19 2018 Inactive cetirizine 10 mg tablet RxNorm: 9861679 1 Tablet(s) PO daily 09/28/20 18 2018 Inactive Guaiasorb DM 10 mg-100 mg/5 mL oral liquid RxNorm: 208078 10 Milliliter(s) PO As needed every 4 hr 09/24/20 18 2018 Inactive Vicks Vaporub 4.7 %-1.2 %-2.6 % topical ointment RxNorm: 9518664 1 Application TOP TID 09/24/20 18 2018 Inactive levmetamfetamine 50 mg nasal inhaler RxNorm: 1 Unit(s) NASAL Q3-4H 09/24/20 18 2017 Inactive sertraline 50 mg tablet RxNorm: 224643 1 Tablet(s) PO daily 09/09/20 18 2018 Inactive Please note dose trazodone 50 mg tablet RxNorm: 420438 1 Tablet(s) PO QHS 09/06/20 18 2018 Inactive sertraline 50 mg tablet RxNorm: 500555 1 Tablet(s) PO daily 09/06/20 18 2017 Inactive amoxicillin 500 mg tablet RxNorm: 831372 1 Tablet(s) PO Q12H 08/31/20 18 2017 Inactive albuterol sulfate 2.5 mg/3 mL (0.083 %) solution for nebulization RxNorm: 265858 1 Vial INH QID 08/10/20 18 2018 Inactive 60/box. Please do not fill early. Please do not auto refill. Prozac 10 mg capsule RxNorm: 639885 1 Capsule(s) PO daily 08/09/20 18 2017 Inactive buspirone 7.5 mg tablet RxNorm: 535879 1 Tablet(s) PO BID 08/09/20 18 2018 Inactive gabapentin 300 mg capsule RxNorm: 154745 1 Capsule(s) PO TID as needed 08/01/20 18 2018 Inactive hydrochlorothiazide 12.5 mg tablet RxNorm: 499503 1 Tablet(s) PO QAM 08/01/20 18 2018 Inactive ranitidine 150 mg tablet RxNorm: 458995 1 Tablet(s) PO BID 08/01/20 18 2018 Inactive Macrobid 100 mg capsule RxNorm: 152921 1 Capsule(s) PO Q12H 06/21/20 18 2017 Inactive Singulair 10 mg tablet RxNorm: 890036 1 Tablet(s) PO daily 06/14/20 18 2018 Inactive Ventolin HFA 90 mcg/actuation aerosol inhaler RxNorm: 2716307 2 Puff(s) INH QID 06/14/20 18 2018 Inactive Singulair 10 mg tablet RxNorm: 496582 1 Tablet(s) PO daily 06/14/20 18 2017 Inactive buspirone 7.5 mg tablet RxNorm: 479274 1 Tablet(s) PO BID 06/14/20 18 2017 Inactive Prozac 10 mg capsule RxNorm: 515517 1 Capsule(s) PO daily 06/14/20 18 2017 Inactive Neilmed Pediatric Sinus Rinse Refill packet RxNorm: 1 Unit Dose NASAL PRN 05/31/20 18 2021 Inactive diclofenac sodium 75 mg tablet,delayed release RxNorm: 460360 1 Tablet(s) PO BID 05/31/20 18 2017 Inactive lisinopril 2.5 mg tablet RxNorm: 264613 1 Tablet(s) PO daily 05/31/20 18 2017 Inactive metoprolol succinate ER 50 mg tablet,extended release 24 hr RxNorm: 025429 1 Tablet(s) PO daily 05/31/20 18 2017 Inactive levothyroxine 50 mcg tablet RxNorm: 778290 1 Tablet(s) PO daily 05/31/20 18 2017 Inactive TRUEplus Lancets 30 gauge RxNorm: 1 Lancets Miscellaneous QAM 05/31/20 18 2017 Inactive 100/box Ventolin HFA 90 mcg/actuation aerosol inhaler RxNorm: 308254 2 Puff(s) INH QID 05/31/20 18 2017 Inactive Aleve 220 mg capsule RxNorm: 1039131 1 Capsule(s) PO BID 05/31/20 18 2018 Inactive ranitidine 150 mg tablet RxNorm: 840044 1 Tablet(s) PO BID 05/31/20 18 2017 Inactive gabapentin 300 mg capsule RxNorm: 526236 1 Capsule(s) PO TID as needed 05/31/20 18 2017 Inactive atorvastatin 20 mg tablet RxNorm: 499928 1 Tablet(s) PO QHS 05/31/20 18 2017 Inactive True Metrix Glucose Test Strip RxNorm: 1 Test Strips Miscellaneous QAM 05/31/20 18 2017 Inactive 50/container Calcium 600-D3 Plus 600 mg calcium-800 unit-50 mg tablet RxNorm: 1 Tablet(s) PO daily take an additonal tablet for itching. 05/31/20 18 2017 Inactive hydrochlorothiazide 12.5 mg tablet RxNorm: 073884 1 Tablet(s) PO QAM 05/31/20 18 2017 Inactive Flintstones Complete (iron) 18 mg iron chewable tablet RxNorm: 1 Tablet(s) PO daily 05/31/20 18 2017 Inactive d-mannose oral powder RxNorm: PO 18 2021 Inactive True Metrix Glucose Meter RxNorm: miscellaneous 08/17/20 19 2018 Inactive sertraline 50 mg tablet RxNorm: 758843 1 Tablet(s) PO daily 11/28/19 20 2019 Inactive loperamide 2 mg tablet RxNorm: 011738 oral 09/29/20 19 2018 Inactive Symbicort 160 mcg-4.5 mcg/actuation HFA aerosol inhaler RxNorm: 1078435 2 Puff(s) INH BID 08/17/202018 Inactive Medication Administered No Medication Administered data Procedures Procedure Codes Date Electrocardiogram CPT-4: 74463 05/14/2020 Tobacco Assessment/Screening CPT-4: TCA Fall Risk Assessment [facility] CT: 39040924 4 CPT-4: DFRA01/01/2020Functional AssessmentCPT-4: DFA01/01/2020[place] Fany AssessmentCPT-4: DSWA11/28/2019Patient Health QuestionnaireCPT-4: DPHQ11/28/2019 [place] AssessmentCPT-4: DSWA10/17/2019HypertensionCPT-4: HTN10/17/2019 [facility] CPT-4: DFRA09/19/2019Functional AssessmentCPT-4: DFA111/20/2018Urinalysis, dip stickCPT-4: 311004706/21/2019Tobacco Assessment/ScreeningCPT-4: TCA05/24/2019 Patient Health QuestionnaireCPT-4: DPHQ05/24/2019AHA/REBECCA Classification AssessmentCPT-4: DAHA04/25/2019Controlled Substance ReportCPT-4: CTRSU04/25/2019 Urinalysis, dip stickCPT-4: 993767803/28/2019Urinalysis, dip stickCPT-4: 56058 03/28/20196986L6X-HybifngmwluimugLSI-3: 54272MtzrfcuM0H-CgpmkscvxjipygkPDV-5: 92051 VdgiydgT4G-VxvrafzyamdxxkpKJD-8: 06637OtjabhgG3J-LgrcqbaggjrllgaKWB-1: [address]: 099357618 CPT-4: U20Gynonzg Reason For Visit No Reason For Visit data Plan of Care Planned Activity Notes Codes Status Date Referral: Pending Gynecology Referral Informatio n Referral ProcessedReferral: Pending Pulmonology Referral InformationReferralProcessed Referral: Pending Psychiatry Referral InformationReferralInitiatedReferral: Pending Respiratory Services Referral InformationReferralInitiatedReferral: Pending Ophthalmology Referral InformationReferralInitiatedReferral: [facility] W[facility]el: [address] [place] [address] [address] [address] USWriter placed a call out to the patient to notify her that it has been recommended that she be seenby a urologist. Patient agreed to be seen, does not have a provider of choice and no transportationissues. Director Of Programming faxed referral and clinical notes to [facility] in [place], [place] near the patient's home. Patient to [...] seen and prefers a provider in the [place] or [facility]. Director Of Programming placed a call out to everyone listed in the area and the only location that was able to accept the patient's insurance was [place] [address] [place] [address] and spoke with Maylin. Maylin asked that the patient's referral, face sheet and visit notes be faxed to . Director Of Programming faxed over requested documents. Patient appointment confirmation letter generated and mailed to her home address. Patient to call to schedule an appointment.ProcessedReferral: [facility] W[facility]el: [address] [id number] USPatient notified that it has been advised that she be seen by Neurology. Patient agreed to be seen and prefers to be seen by a provider in the [place], [place] area. Patient denies any concerns with transportation, and prefers to schedule her own appointment. Director Of Programming placed a call out to [facility] and spoke with Neeraj P: who confirmed that their office is able to acceptnew patients and the patient's insurance. After confirming the providers fax number, sports writer faxed over the patient's referral, and [...]
--- OUTSIDE RECORDS SUMMARY | 2023-12-07 02:13 | XMS_ITS | CCD ---
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 Name Role Phone Anna Culver NP Primary Care Provider Unav ailable Unavailable Chronic Care Management Unavaila ble Summary Purpose DataExchange Insurance Providers Payer name Policy type / Coverage type Covered green party ID Effective Begin Date Effective End Date SUKI MAYO [id number] Unknown Unknown Family history Mother Diagnosis Age [...] 05/31/2018 Education level Unknown Some High School 10th05/31/20183159FxckypiddnNtjgzglLndtfccbgw31/29/2018Tobacco historySNOMED CT: 593727879Sld never smoked or chewed gjtdome7105/31/2018Alcohol historySNOMED CT: 791079902Iypnj drinks xzlwbbs1205/31/2018Has the patient ever used illegal drugs? UnknownHas never used illegal drugs05/31/2018DNR Order/ Advanced Directive UnknownFull Code05/31/2018 Allergies, Adverse Reactions, Alerts Substance Reaction Codes Entered Date Inactivated Date Status *No known food allergies Zwqvquw0309/06/2018No Inactive DateActiveMethylprednisolonehivesRxNorm: 6902 09/06/2018No Inactive DateActive Problems Condition Codes Effective Dates Condition St atus Abnormal urine finding ICD-10: R82.90 ICD-9: 791.9111/25/2019ActiveAdjustment disorder with mixed anxiety and depressed moodICD-10: F43.23 ICD-9: 309.2812ActiveGERD (gastroesophageal reflux disease)ICD-10: K21.9 ICD-9: 530.8112ActiveHypertensive heart disease with heart failureICD- 10: I11.0 ICD-9: 402.9107ActiveType 2 diabetes mellitus with peripheral neuropathy ICD-10: E11.42 ICD-9: 250.6002ActivePolyneuropathy, unspecifiedICD-10: G62.9 ICD-9: 356.908/ActiveRight wrist painICD-10: M25.531 ICD-9: 719.4308ActiveEssential (primary) hypertensionICD-10: [...] ICD-9: V03.907/ActivePatient Not SeenICD-10: UXZ.01 ICD-9: XZ0.107/ActiveOther longterm (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ICD-10: Z79.899 ICD-9: V58.6907ActiveChest pain, [...] Instructions omeprazole 20 mg capsule,delayed release RxNorm: 598407 1 Capsule(s) Oral two times a day 09/24/20 20 2021 Inactive metformin 1,000 mg tablet RxNorm: 877903 1 Tablet(s) Oral two times a day 08/19/20 20 2020 Inactive start on September 11, 2020 metformin 500 mg tablet RxNorm: 089105 1 Tablet(s) Oral two times a day take with 500mg to equal 1000mg 08/19/20 20 2019 Inactive gabapentin 300 mg capsule RxNorm: 146259 TAKE 1 CAPSULE BY MOUTH THREE TIMES DAILY 07/11/20 20 2020 Inactive cetirizine 10 mg tablet RxNorm: 7506826 TAKE (1) TABLET BY MOUTH DAILY 07/11/20 20 2020 Inactive metformin 500 mg tablet RxNorm: 830936 1 Tablet(s) Oral two times a day 07/08/20 20 2019 Inactive loperamide 2 mg tablet RxNorm: 448338 1 Tablet(s) Oral as needed take one tablet after each loose stool, maximum of 8 tablets in 24 hours 06/24/202021 Inactive Sudafed 12 Hour 120 mg tablet,extended release RxNorm: 1970432 TAKE 1 TABLET BY MOUTH EVERY 12 HOURS NEEDED 06/11/20 20 2019 Inactive hydrochlorothiazide 25 mg tablet RxNorm: 369836 TAKE (1) TABLET BY MOUTH EVERY DAY 06/11/20 20 2019 Inactive omeprazole 20 mg capsule,delayed release RxNorm: 799347 TAKE 1 CAPSULE BY MOUTH EVERY DAY 05/14/20 20 2020 Inactive metformin 500 mg tablet RxNorm: 466675 1 Tablet(s) Oral every day 05/12/20 20 2019 Inactive True Metrix Glucose Test Strip RxNorm: 1 Test Strips Miscellaneous two times a day as needed 04/17/20 No Stop Date Active metformin 500 mg tablet RxNorm: 640190 1 Tablet(s) Oral every day 04/17/20 20 2019 Inactive diclofenac sodium 75 mg tablet,delayed release RxNorm: 010369 1 Tablet(s) PO BID 04/14/20 20 2021 Inactive This refill negates all other refills of this medication Sudafed 12 Hour 120 mg tablet,extended release RxNorm: 3826496 TAKE 1 TABLET BY MOUTH EVERY 12 HOURS NEEDED 03/14/20 20 2019 Inactive True Metrix Glucose Test Strip RxNorm: 1 Test Strips Miscellaneous every morning 03/13/20 20 2019 Inactive 100/container True Metrix Glucose Test Strip RxNorm: 1 Test Strips Miscellaneous QA 02/22/20 20 2019 Inactive 100/container loperamide 2 mg tablet RxNorm: 854684 1 Tablet(s) Oral as needed take one tablet after each loose stool, maximum of 8 tablets in 24 hours 02/22/20 20 2019 Inactive levothyroxine 50 mcg tablet RxNorm: 128833 1 Tablet(s) PO daily 01/17/20 20 2020 Inactive cetirizine 10 mg tablet RxNorm: 4613463 1 Tablet(s) PO daily 01/17/20 20 2019 Inactive loperamide 2 mg tablet RxNorm: 596807 1 Tablet(s) Oral as needed take one tablet after each loose stool, maximum of 8 tablets in 24 hours 01/17/20 20 2019 Inactive quetiapine 100 mg tablet RxNorm: 707754 1 Tablet(s) Oral every night at bedtime 01/17/20 20 2019 Inactive gabapentin 300 mg capsule RxNorm: 830434 1 Capsule(s) PO TID 01/17/20 20 2019 Inactive lisinopril 2.5 mg tablet RxNorm: 722433 1 Tablet(s) PO daily 01/15/20 20 2020 Inactive Singulair 10 mg tablet RxNorm: 740433 1 Tablet(s) PO daily 01/15/20 20 2020 Inactive levothyroxine 50 mcg tablet RxNorm: 927748 1 Tablet(s) PO daily 01/15/20 20 2019 Inactive gabapentin 300 mg capsule RxNorm: 482558 1 Capsule(s) PO TID 01/15/20 20 2019 Inactive cetirizine 10 mg tablet RxNorm: 1905461 1 Tablet(s) PO daily 01/15/20 20 2019 Inactive gentamicin 0.3 % eye drops RxNorm: 637364 1 Drop(s) ophthalmic (eye) four times a day 12/29/19 20 2019 Inactive gentamicin 0.3 % eye drops RxNorm: 274501 1 Drop(s) ophthalmic (eye) four times a day 12/29/19 20 2019 Inactive gentamicin 0.3 % eye drops RxNorm: 151045 1 Drop(s) ophthalmic (eye) four times a day 12/29/19 20 2019 Inactive hydrochlorothiazide 25 mg tablet RxNorm: 646781 1 Tablet(s) Oral every day 12/21/19 20 2019 Inactive Sudafed 12 Hour 120 mg tablet,extended release RxNorm: 4531205 TAKE (1) TABLET BY MOUTH EVERY 12 HOURS NEEDED 12/21/19 20 2019 Inactive loperamide 2 mg tablet RxNorm: 116417 1 Tablet(s) Oral as needed take one tablet after each loose stool, maximum of 8 tablets in 24 hours 12/11/19 20 2019 Inactive loperamide 2 mg tablet RxNorm: 911147 1 Tablet(s) Oral as needed take one tablet after each loose stool, maximum of 8 tablets in 24 hours 12/11/19 20 2019 Inactive atorvastatin 40 mg tablet RxNorm: 885918 1 Tablet(s) Oral every day 11/29/19 20 2020 Inactive quetiapine 100 mg tablet RxNorm: 281499 1 Tablet(s) Oral every night at bedtime 11/28/19 20 2019 Inactive sertraline 100 mg tablet RxNorm: 600544 1 Tablet(s) Oral 11/28/19 20 2019 Inactive omeprazole 20 mg capsule,delayed release RxNorm: 979287 1 Capsule(s) Oral every day 11/20/19 20 2019 Inactive amoxicillin 250 mg capsule RxNorm: 214679 1 Capsule(s) Oral three times a day 11/07/19 20 2019 Inactive multivitamin with iron-mineral tablet RxNorm: 1 Tablet(s) Oral every day 10/29/192021 Inactive cetirizine 10 mg tablet RxNorm: 2566630 1 Tablet(s) PO daily 10/20/19 20 2019 Inactive This refill negates all other refills of this medication. Please do not auto refill Singulair 10 mg tablet RxNorm: 913287 1 Tablet(s) PO daily 10/20/19 20 2019 Inactive This refill negates all other refills of this medication gabapentin 300 mg capsule RxNorm: 635366 1 Capsule(s) PO TID 10/20/192019 Inactive lisinopril 2.5 mg tablet RxNorm: 280290 1 Tablet(s) PO daily 10/20/19 20 2019 Inactive levothyroxine 50 mcg tablet RxNorm: 097847 1 Tablet(s) PO daily 10/20/192019 Inactive This refill negates all other refills of this medication fenugreek seed extract 500 mg capsule RxNorm: 1 Capsule(s) Oral three times a day 10/17/19 20 2021 Inactive hydrochlorothiazide 25 mg tablet RxNorm: 268168 1 Tablet(s) Oral every day 10/17/19 2019 Inactive Alcohol Prep Pads RxNorm: 371589 1 Patch TOP QAM 10/16/19 20 2020 Inactive loperamide 2 mg tablet RxNorm: 185525 1 Tablet(s) Oral as needed take one [...] 09/19/202019 Inactive hydrochlorothiazide 25 mg tablet RxNorm: 253645 1 Tablet(s) Oral every day 09/19/202019 Inactive Sudafed 12 Hour 120 mg tablet,extended release RxNorm: 6212907 1 Tablet(s) Oral every 12 hours as needed 09/11/202018 Inactive omeprazole 20 mg capsule,delayed release RxNorm: 362315 1 Capsule(s) Oral every day 09/07/20 19 2019 Inactive Sudafed 12 Hour 120 mg tablet,extended release RxNorm: 4239866 1 Tablet(s) Oral every 12 hours as needed 09/04/202018 Inactive pantoprazole 40 mg tablet,delayed release RxNorm: 956513 1 Tablet(s) Oral every day 08/24/202018 Inactive discontinue any other H2Blkr. and PPI albuterol sulfate 2.5 mg/3 mL (0.083 %) solution for nebulization RxNorm: 295149 1 Vial Inhalation every four hours as needed as needed for dyspnea 08/17/202019 Inactive 60/box. This refill negates all other refills of this medication. Please do not fill early. Please do not auto refill. Symbicort 160 mcg-4.5 mcg/actuation HFA aerosol inhaler RxNorm: 1678486 2 Puff(s) INH BID 08/17/20 19 No Stop Date Active Alcohol Prep Pads RxNorm: 815984 1 Patch TOP QAM 08/17/20 19 2019 Inactive Ventolin HFA 90 mcg/actuation aerosol inhaler RxNorm: 249937 2 Puff(s) INH QID 08/09/20 19 2019 Inactive Please do not fill early. Please do not auto refill. This refill negates all other refills of this medication True Metrix Glucose Test Strip RxNorm: 1 Test Strips Miscellaneous QAM 08/09/20 19 2019 Inactive 100/container atorvastatin 40 mg tablet RxNorm: 813926 1 Tablet(s) Oral every day 07/04/20 19 2019 Inactive levmetamfetamine 50 mg nasal inhaler RxNorm: 1 Unit(s) NASAL Q3-4H Do not use more than every 3 hours or 8 times/24hours 06/26/20 19 2021 Inactive Please do not auto refill. This refill negates all other refills of this medication buspirone 7.5 mg tablet RxNorm: 072305 1 Tablet(s) PO BID 06/26/20 19 2020 Inactive This refill negates all other refills of this medication hydrochlorothiazide 12.5 mg tablet RxNorm: 914523 1 Tablet(s) PO QAM 06/26/20 19 2019 Inactive Ventolin HFA 90 mcg/actuation aerosol inhaler RxNorm: 383304 2 Puff(s) INH QID 06/26/20 19 2018 Inactive Please do not fill early. Please do not auto refill. This refill negates all other refills of this medication Singulair 10 mg tablet RxNorm: 569356 1 Tablet(s) PO daily 06/26/20 19 2019 Inactive This refill negates all other refills of this medication cetirizine 10 mg tablet RxNorm: 0873676 1 Tablet(s) PO daily 06/26/20 19 2019 Inactive This refill negates all other refills of this medication. Please do not auto refill levothyroxine 50 mcg tablet RxNorm: 305752 1 Tablet(s) PO daily 06/26/20 19 2019 Inactive This refill negates all other refills of this medication diclofenac sodium 75 mg tablet,delayed release RxNorm: 073061 1 Tablet(s) PO BID 06/26/20 19 2019 Inactive This refill negates all other refills of this medication ranitidine 150 mg tablet RxNorm: 124857 1 Tablet(s) PO BID 06/26/20 19 2018 Inactive This refill negates all other refills of this medication Calcium 600-D3 Plus (mag-zinc) 600 mg calcium-800 unit-50 mg tablet RxNorm: 1 Tablet(s) PO daily take an additonal tablet for itching. 06/26/20 19 2018 Inactive This refill negates all other refills of this medication albuterol sulfate 2.5 mg/3 mL (0.083 %) solution for nebulization RxNorm: 288726 1 Vial INH QID 06/26/20 19 2018 Inactive 60/box. This refill negates all other refills of this medication. Please do not fill early. Please do not auto refill. lisinopril 2.5 mg tablet RxNorm: 930802 1 Tablet(s) PO daily 06/21/20 19 2019 Inactive gabapentin 300 mg capsule RxNorm: 037313 1 Capsule(s) PO TID 06/21/20 19 2019 Inactive atorvastatin 20 mg tablet RxNorm: 589509 1 Tablet(s) PO QHS 06/07/20 19 2018 Inactive This refill negates all other refills of this medication TRUEplus Lancets 30 gauge RxNorm: 1 Lancets Miscellaneous QAM 05/29/20 19 2018 Inactive 100/box gabapentin 300 mg capsule RxNorm: 726593 1 Capsule(s) PO TID 05/03/20 19 2018 Inactive Flintstones Complete (iron) 18 mg iron chewable tablet RxNorm: 1 Tablet(s) PO daily 04/04/20 19 2021 Inactive This refill negates all other refills of this medication gabapentin 300 mg capsule RxNorm: 371885 1 Capsule(s) PO TID as needed 02/01/20 19 2018 Inactive True Metrix Glucose Test Strip RxNorm: 1 Test Strips Miscellaneous QA 02/01/20 19 2018 Inactive 100/container Alcohol Prep Pads RxNorm: 358538 1 Patch TOP QA 02/01/20 19 2018 Inactive TRUEplus Lancets 30 gauge RxNorm: 1 Lancets Miscellaneous QAM 02/01/20 19 2018 Inactive 100/box lisinopril 2.5 mg tablet RxNorm: 904097 1 Tablet(s) PO daily 12/28/192018 Inactive ranitidine 150 mg tablet RxNorm: 978533 1 Tablet(s) PO BID 10/21/192018 Inactive This refill negates all other refills of this medication albuterol sulfate 2.5 mg/3 mL (0.083 %) solution for nebulization RxNorm: 508536 1 Vial INH QID 10/21/192018 Inactive 60/box. [...] this medication gabapentin 300 mg capsule RxNorm: 783373 1 Capsule(s) PO TID as needed 10/21/192018 Inactive atorvastatin 20 mg tablet RxNorm: 222032 1 Tablet(s) PO QHS 10/21/19 19 2018 Inactive This refill negates all other refills of this medication trazodone 50 mg tablet RxNorm: 748617 1 Tablet(s) PO QHS 10/21/19 19 2018 Inactive This refill negates all other refills of this medication Ventolin HFA 90 mcg/actuation aerosol inhaler RxNorm: 279288 2 Puff(s) INH QID 10/21/192018 Inactive Please do not fill early. Please do not auto refill. This refill negates all other refills of this medication Calcium 600-D3 Plus 600 mg calcium-800 unit-50 mg tablet RxNorm: 1 Tablet(s) PO daily take an additonal tablet for itching. 10/21/19 19 2018 Inactive This refill negates all other refills of this medication Singulair 10 mg tablet RxNorm: 785437 1 Tablet(s) PO daily 10/21/192018 Inactive This refill negates all other refills of this medication buspirone 7.5 mg tablet RxNorm: 062638 1 Tablet(s) PO BID 10/21/192018 Inactive This refill negates all other refills of this medication diclofenac sodium 75 mg tablet,delayed release RxNorm: 687828 1 Tablet(s) PO BID 10/21/192018 Inactive This refill negates all other refills of this medication hydrochlorothiazide 12.5 mg tablet RxNorm: 508371 1 Tablet(s) PO QAM 10/21/19 19 2018 Inactive metoprolol succinate ER 50 mg tablet,extended release 24 hr RxNorm: 560530 1 Tablet(s) PO daily 10/21/192018 Inactive This refill negates all other refills of this medication levothyroxine 50 mcg tablet RxNorm: 038971 1 Tablet(s) PO daily 10/21/192018 Inactive This refill negates all other refills of this medication cetirizine 10 mg tablet RxNorm: 2221830 1 Tablet(s) PO daily 10/21/192018 Inactive This refill negates all other refills of this medication. Please do not auto refill Flintstones Complete (iron) 18 mg iron chewable tablet RxNorm: 1 Tablet(s) PO daily 10/21/192018 Inactive This refill negates all other refills of this medication buspirone 7.5 mg tablet RxNorm: 078132 1 Tablet(s) PO BID 10/12/192018 Inactive cetirizine 10 mg tablet RxNorm: 1116954 1 Tablet(s) PO daily 09/28/20 18 2018 Inactive Guaiasorb DM 10 mg-100 mg/5 mL oral liquid RxNorm: 281724 10 Milliliter(s) PO As needed every 4 hr 09/24/20 18 2018 Inactive Vicks Vaporub 4.7 %-1.2 %-2.6 % topical ointment RxNorm: 0980184 1 Application TOP TID 09/24/20 18 2018 Inactive levmetamfetamine 50 mg nasal inhaler RxNorm: 1 Unit(s) NASAL Q3-4H 09/24/20 18 2017 Inactive sertraline 50 mg tablet RxNorm: 002789 1 Tablet(s) PO daily 09/09/20 18 2018 Inactive Please note dose trazodone 50 mg tablet RxNorm: 263464 1 Tablet(s) PO QHS 09/06/20 18 2018 Inactive sertraline 50 mg tablet RxNorm: 752089 1 Tablet(s) PO daily 09/06/20 18 2017 Inactive amoxicillin 500 mg tablet RxNorm: 416287 1 Tablet(s) PO Q12H 08/31/20 18 2017 Inactive albuterol sulfate 2.5 mg/3 mL (0.083 %) solution for nebulization RxNorm: 965986 1 Vial INH QID 08/10/20 18 2018 Inactive 60/box. Please do not fill early. Please do not auto refill. Prozac 10 mg capsule RxNorm: 400139 1 Capsule(s) PO daily 08/09/20 18 2017 Inactive buspirone 7.5 mg tablet RxNorm: 441654 1 Tablet(s) PO BID 08/09/20 18 2018 Inactive gabapentin 300 mg capsule RxNorm: 464449 1 Capsule(s) PO TID as needed 08/01/20 18 2018 Inactive hydrochlorothiazide 12.5 mg tablet RxNorm: 400137 1 Tablet(s) PO QAM 08/01/20 18 2018 Inactive ranitidine 150 mg tablet RxNorm: 391743 1 Tablet(s) PO BID 08/01/20 18 2018 Inactive Macrobid 100 mg capsule RxNorm: 718445 1 Capsule(s) PO Q12H 06/21/20 18 2017 Inactive Singulair 10 mg tablet RxNorm: 878007 1 Tablet(s) PO daily 06/14/20 18 2018 Inactive Ventolin HFA 90 mcg/actuation aerosol inhaler RxNorm: 6609405 2 Puff(s) INH QID 06/14/20 18 2018 Inactive Singulair 10 mg tablet RxNorm: 944847 1 Tablet(s) PO daily 06/14/20 18 2017 Inactive buspirone 7.5 mg tablet RxNorm: 101927 1 Tablet(s) PO BID 06/14/20 18 2017 Inactive Prozac 10 mg capsule RxNorm: 341736 1 Capsule(s) PO daily 06/14/20 18 2017 Inactive Neilmed Pediatric Sinus Rinse Refill packet RxNorm: 1 Unit Dose NASAL PRN 05/31/20 18 2021 Inactive diclofenac sodium 75 mg tablet,delayed release RxNorm: 028636 1 Tablet(s) PO BID 05/31/20 18 2017 Inactive lisinopril 2.5 mg tablet RxNorm: 161962 1 Tablet(s) PO daily 05/31/20 18 2017 Inactive metoprolol succinate ER 50 mg tablet,extended release 24 hr RxNorm: 988897 1 Tablet(s) PO daily 05/31/20 18 2017 Inactive levothyroxine 50 mcg tablet RxNorm: 008220 1 Tablet(s) PO daily 05/31/20 18 2017 Inactive TRUEplus Lancets 30 gauge RxNorm: 1 Lancets Miscellaneous QAM 05/31/20 18 2017 Inactive 100/box Ventolin HFA 90 mcg/actuation aerosol inhaler RxNorm: 587072 2 Puff(s) INH QID 05/31/20 18 2017 Inactive Aleve 220 mg capsule RxNorm: 5647680 1 Capsule(s) PO BID 05/31/20 18 2018 Inactive ranitidine 150 mg tablet RxNorm: 042960 1 Tablet(s) PO BID 05/31/20 18 2017 Inactive gabapentin 300 mg capsule RxNorm: 208665 1 Capsule(s) PO TID as needed 05/31/20 18 2017 Inactive atorvastatin 20 mg tablet RxNorm: 605215 1 Tablet(s) PO QHS 05/31/20 18 2017 Inactive True Metrix Glucose Test Strip RxNorm: 1 [facility] 05/[facility] 18 2017 Inactive 50/container Calcium 600-D3 Plus 600 mg calcium-800 unit-50 mg tablet RxNorm: 1 Tablet(s) PO daily take an additonal tablet for itching. 05/31/20 18 2017 Inactive hydrochlorothiazide 12.5 mg tablet RxNorm: 938476 1 Tablet(s) PO QAM 05/31/20 18 2017 Inactive Flintstones Complete (iron) 18 mg iron chewable tablet RxNorm: 1 Tablet(s) PO daily 05/31/20 18 2017 Inactive d-mannose oral powder RxNorm: PO 18 2021 Inactive True Metrix Glucose Meter RxNorm: miscellaneous 08/17/20 19 2018 Inactive sertraline 50 mg tablet RxNorm: 616403 1 Tablet(s) PO daily 11/28/19 20 2019 Inactive loperamide 2 mg tablet RxNorm: 132537 oral 09/29/20 19 2018 Inactive Symbicort 160 mcg-4.5 mcg/actuation HFA aerosol inhaler RxNorm: 7925965 2 Puff(s) INH BID 08/17/20 19 2018 Inactive Medication Administered No Medication Administered data Results Observation Observation Code Item Item Code Result Date Service Location Reflex Molecular UTI Test RMUTI Molecular UTI Test SEE ATTACHMENT APPROVAL MESSAGE 10/01/20 [facility] [address] [address]KYJ81455QAG1013-212.8 pg/mL09/29/2020 [facility] [address] 13[address]C9Z-GPNXOFQAKTCUFVL1142-6Cfhxc HGB E1U05672-1HSX COMMENT % 09/27/2020 [facility] [address] [place], [place] [address]O9W-UVESPWLPFDKLYAG6270-0mMD23384-4MBM COMMENT mg/dL09/27/2020 [facility] [address] [place], [place] [address]HVWC 14 (METABOLIC PANEL)48356Mdamiwu0240-8446 mg/dL09/27/2020 [facility] [address] [place], [place] [address]JQXG 14 (METABOLIC PANEL)42521RTX6381-948 mg/dL09/27/2020 [facility] [address] [place], [place] [address]OVOL 14 (METABOLIC PANEL)03972Csiasqfyct2896-01.8 mg/dL09/27/2020 [facility] [address] [place], [place] [address]HUWF 14 (METABOLIC PANEL)85828WZE/Creat Aigre3398-951.9111/28/2019 [facility] [address] [place] [address]XHYN 14 (METABOLIC PANEL)53751SHC Zmgskrgoc90196-013 mL/min/1.73m2 09/27/2020 [facility] [address] [place], [place] [address]BJLB 14 (METABOLIC PANEL)60873TQY Estimated for Americans 70300-603 mL/min/1.95h93109/27/2020 [facility] [address] [place] [address]BBQB 14 (METABOLIC PANEL)46957Szknoj4019-4674 mmol/L111/28/2019 [facility] [address] [place] [address] 45[address]MCRZ 14 (METABOLIC PANEL)49201Hneuphtyc7769-62.2 mmol/L111/28/2019 [facility] [address] [place], [place] [address]BGYB 14 (METABOLIC PANEL)32309Oalojrsa3056-1472 mmol/L111/28/2019 [facility] [address] [place], [place] [address]AWSE 14 (METABOLIC PANEL)08736Fieci OG42735-818 mmol/L111/28/2019 [facility] [address] [place], [place] [address]QNES 14 (METABOLIC PANEL)37442Gevsa Msd8624-863.2 mEq/L111/28/2019 [facility] [address] [place], [place] [address]JLQN 14 (METABOLIC PANEL)54580Zvhipivtpp Serum Ljinkkbzun42691-3359 mOsm/kg09/27/2020 [facility] [address] [place], [place] [address]IJGL 14 (METABOLIC PANEL)56467Rxocrik68151-04.0 g/dL09/27/2020 [facility] [address] [place], [place] [address]OJRU 14 (METABOLIC PANEL)75449Zcxuk Hilxabe3793-75.7 g/dL09/27/2020 [facility] [address] [place] [address]BACQ 14 (METABOLIC PANEL)28459Ftpwxgyv4698-83.7 g/dL09/27/2020 [facility] [address] [place], [place] [address]PJQB 14 (METABOLIC PANEL)00836Faewhzg/Globulin Mmpsz9192-71.1 09/27/2020 [facility] [address] [place], [place] [address]FBFL 14 (METABOLIC PANEL)63133JBE WSRV2239-594.00 U/L111/28/2019 [facility] [address] [place] [address]BTXE 14 (METABOLIC PANEL)69717KDWF/BHV5084-999 U/L111/28/2019 [facility] [address] [place] [address]CNGH 14 (METABOLIC PANEL)51020OSWM/UEX6143-888 U/L111/28/2019 [facility] [address] [place], [place] [address]FYFG 14 (METABOLIC PANEL)77686Osvum Furzdtuqf3525-25.5 mg/dL 09/27/2020 [facility] [address] [place] [address]IDMK 14 (METABOLIC PANEL)97956Omoiscg62463-73.4 mg/dL09/27/2020 [facility] [address] [place] [address] 401[address]PAHR 14 (METABOLIC PANEL)44935Mbsdmyhsv Oqzmkae75206-69.6 mg/dL 09/27/2020 [facility] [address] [place] [address] 55[address]Twlomn UA to Molecular UTI Xocw76209VIghcllq4733-0YON COMMENT mg/dL 09/27/2020 [facility] [address] [place], [place] [address]Wclnze UA to Molecular UTI Ofak28323VPkkowqqJUT COMMENT mg/dL 09/27/2020 [facility] [address] [place] [address] 37[address]Vadrtg UA to Molecular UTI Rgzk42918VCtkwfjyobOUP COMMENT mg/dL 09/27/2020 [facility] [address] [place], [place] [address]Ozpxdx UA to Molecular UTI Kamn64955GUgztnskabtzgCGB COMMENT mg/dL 09/27/2020 [facility] [address] [address]Ecdpgl UA to Molecular UTI Ogrh20295LOuTOV OJINIMD9409/27/2020 [facility] [address] [address]Ahqdfq UA to Molecular UTI Mpwd88733ZNcjzoCSC COMMENT mg/dL 09/27/2020 [facility] [address] [address]Wczjhc UA to Molecular UTI Ybzr77012WLcsmqtpJLA COMMENT mg/dL 09/27/2020 [facility] [address] [address]Xpazos UA to Molecular UTI Yang13091GFbohylzHZH ANOXXNT8909/27/2020 [facility] [address] [address]Yghusz UA to Molecular UTI Xcqq84442JCsjggurypbSWF COMMENT WBCs/uL 09/27/2020 [facility] [address] [address]Nbqqgg UA to Molecular UTI Rqbw66221CLzmedxbPBG JRMGEGJ5009/27/2020 [facility] [address] [address]Axgvph UA to Molecular UTI Xcvs72875BXveeibfg GravitySEE COMMENT 09/27/2020 [facility] [address] [address]Zberbe UA to Molecular UTI Wilw07983BVduymENG WUVAAOB9709/27/2020 [facility] [address] [address]Xkijyf UA to Molecular UTI Ipjb59300AKbqwnlcw AcidSEE COMMENT mg/dL 09/27/2020 [facility] [address] 487[address]PWENYWNGHJPY (URINE)95813Thqduceyqcus51910-55.7 mg/dL09/27/2020 [facility] [address] [address]BFCHHNPDUUXQ (URINE)02236Uldfzfxyancs/Creatinine Zdidz41665-624 MCG/HRSWKWP60/26/2020 [facility] [address] [address]YXBPEKPRIDEC (URINE)497[address]Jpkmt Kawnwndlgc5655-5504.00 mg/dL 09/27/2020 [facility] [address] [address] Procedures Procedure Codes Date Urinalysis, dip stick CPT-4: 34585 09/24/2020 Glucose Blood Test CPT-4: 48048 09/24/2020 Urinalysis, dip stick Leukocytes:/Small, Nitrite:/Negative, Urobilinogen:/0.2, Protein:/Negative, Ph:/5.0, Blood:/Non-Hemolyzed:, Blood:/Trace, Specific [place]:/1.020, Ketone:/Negative, Bilirubin:/Negative, Glucose:/NegativeCPT-4: 20875Fvznsxc 09/24/2020Patient Health QuestionnaireCPT-4: DPHQ11ElectrocardiogramCPT- 4: 3545663Tobacco Assessment/ScreeningCPT-4: TCA01/01/2020Fall Risk AssessmentSNOMED CT: [id number] CPT-4: DFRA01/01/2020Functional AssessmentCPT-4: DFA01/01/2020[place] Fany AssessmentCPT-4: DSWA11/28/2019Patient Health QuestionnaireCPT-4: DPHQ11/28/2019 [place] Fany AssessmentCPT-4: DSWA10/17/2019HypertensionCPT-4: HTN10/17/[address]: 937633181 CPT-4: DFRA09/19/2019Functional AssessmentCPT-4: DFA111/20/2018Urinalysis, dip stickCPT-4: 737098106/21/2019Tobacco Assessment/ScreeningCPT-4: TCA05/24/2019 Patient Health QuestionnaireCPT-4: DPHQ05/24/2019AHA/REBECCA Classification AssessmentCPT-4: DAHA04/25/2019Controlled Substance ReportCPT-4: CTRSU04/25/2019 Urinalysis, dip stickCPT-4: 1308383Urinalysis, dip stickCPT-4: 36742 03/28/20199999K0A-CedxoqjnhxugoynMYQ-2: 88426EafxmrgS4B-TittivfubyofpvyBUC-6: 06420 HramgomF9B-JhnkhrcdbkgmbufJTX-1: 08921NgjowejF2I-LkuoeilqtcymbouFLB-4: 22311 BfleogoV9Y-LsasojjzpjhsadpZMF-0: 44861YvihyrcIcqkvxzoat ReferralSNOMED CT: 050525210 CPT-4: M31Tpxebrj Vital Signs Date Vital 09/24/2020 Blood Pressure 1: 122/84 Code: 8480-6 BMI: 53.1 Code: 26304-2 Heart Rate 1: 68 bpm Height: 4'11 Code: 8302-2 Respiratory Rate: 16 bpm Temperature: 36.7 (C) / 98.1 (F) Weight: 263 lbs Code: 72378-5 Reason For Visit Reason For Visit Effective Dates Notes hypertension 09/24/2020 diabetes mellitus 09/24/2020 gastroesophageal reflux disease 09/24/2020 Interim health update 09/24/2020 Encounters Encounter Performer Location Location Address Codes Magdi e HOME VISIT EST PATIENT Diagnosis: Type 2 diabetes mellitus with peripheral neuropathy[ICD10: E11.42] Diagnosis: Hypertensive heart disease with heart failure[ICD10: I11.0] Diagnosis: Adjustment disorder with mixed anxiety and depressed mood[ICD10: F43.23] Diagnosis: GERD (gastroesophageal reflux disease)[ICD10: K21.9] Diagnosis: Abnormal urine finding[ICD10: R82.90]Anna Bourgeois Office [id number] [place] [address] 49032VMJ-3: 967087411/25/2019 Plan of Care Planned Activity Notes Codes Status Date Visit Plan: R82.90-791.9 Abnorma l urine finding UA dipstick +leukocytes and trace non hemolyzed blood, will send urine for UA reflex to molecular M25.531-719.43 Right wrist pain routine follow up with Dr Watson-orthopedics last appt 07/14/2020 quit outpatient PT as didn't feel it was helpful MRI with contrast per orthopedics completed 06/30/2020- per patiet revealed torn ligament to right wrist-record requested Dr. Tee Shahid, hand animal control specialist, outpatient surgery planned 10/09/2019 E11.42-250.60 Type 2 diabetes mellitus with peripheral neuropathy testing BID and PRN if feeling symptomatic 89-105, patient reports feeling symptomatic for BS >100, RBS 103 Metformin 1000mg BID - received new monitor [employer] through [facility] [employer]-participant of [facility] [employer] on demand -will send all diabetic supplies to patient 04/14/2020 hemoglobin 5.6 10/17/2019 Hemoglobin A1C 6.0 07/04/2019 Hgb A1C 5.6 10/17/2019 [place] Fany 04/11-instructed on good daily foot care [...] minutes EchocardiogramDOS 07/02/2020 Norrmal LVSF, EF 60% labs drawn, results pending N18.9-585.9 Chronic kidney disease, unspecified avoid nephro toxic drugs, 04/17/2020 GFR >100, renal function remains stable Patient denies ability to drink water stating that it dehydrates her-doesn't know diagnosis, but indicates she was told this by previous urologist routine urology follow up-last appt in August 2020labs drawn, results pending K21.9- 530.81 GERD (gastroesophageal reflux disease) increase omeprazoleto BID x 1 month, will plan reduction back to daily at that time G47.33-327.23 Obstructive sleep apnea (adult) (pediatric) J45.909-493.90 Asthma continue inhalers nebulizer routine f/u Dr. Garcia, pulmonology appt August 2020 F43.23-309.28 Adjustment disorder with mixed anxiety and depressed mood routine follow up [facility] 08/19/2020 PHQ 9 Scoere 1, admits to feeling down at times due to not able to bring dog to new apartment and occasionally misses Functional Assessment independent with ADLs labs drawn, results pending E03.9-244.9 Hypothyroidism, unspecified cont levothyroxine E78.5-272.4 Hyperlipidemia, [...] 2019 new appt for pap in June 2020- [facility]-reports pap negative-records requested Z01.89-V72.85 Encounter for screening for tobacco use Tobacco screen complete-patient denies ever smoking Z12.31-V76.12 (Z12.31-V76.12) Encounter for screening mammogram for malignant neoplasm of breast Z12.11-V76.51 (Z12.11-V76.51) Encounter for screening for malignant neoplasm of colon Preventative testing not indicated due toage *I reviewed the most recent CDC guidelines [...] visit verbalized understanding of all above topics. 09/24/2020Patient Education: Patient Medication QbvkywxLafvumfpo91/23/2020 Patient Education: YstfbeyXpdicczcm74/23/2020Appointment: Anna Culver WPtel: [address] [place] [address] USETV110/26/2019Appointment: Anna Culver WPtel: [address] [place] [address] USETV110/19/2019Appointment: Anna Culver WPtel: [phone] [place] [address] [address] [place] [address] [id number]: Anna Culver WPtel: [phone] [place] [address] [address] [place] [address] [id number]: Gianna Birmingham MCt: [address] [facility] [address] JrukokaNP14[address] [id number]: Anna Culver WPtel: [phone] [place] [address] [id number]: Anna Culver WPtel: [phone] [place] [address] [id number]: Anna Culver WPtel: [phone] [place] [address] [id number]: Anna Culver WPtel: [phone] [place] [address] [id number]: Anna Culver WPtel: [phone] [place] [address] [id number]: Anna Culver WPtel: [phone] [place] [address] [place] [address] [id number]/Appointment: Anna Culver WPtel: [phone] [place] [address] [place] [address] [id number]/Appointment: Anna Culver WPtel: [phone] [place] [address] [id number]: Anna Culver WPtel: [phone] [place] [address] [place] [address] [id number]: Anna Culver WPtel: [phone] [place] [address] [address] [facility] KUQ1957711/20/2018Appointment: Maricarmen Sudha WPtel: [address] [facility] [address] [id number]: Sudha Hernadez WPtel: [address] [facility] [address] [id number]: Charlene Oropeza WPtel: [address] [facility] [address] [id number]: Enedelia Delgado45Appointment: Charlene Oropeza WPtel: [address] [facility] [address] [id number] [id number]: Haupricht, Rasta WPtel: [address] [facility] [address] [id number] [id number]: Haupricht, Rasta WPtel: [address] [facility] [address] [id number]: Haupricht, Rasta WPtel: [address] [facility] [address] [id number]: Haupricht, Rasta WPtel: [address] [facility] [address] [id number]: Pending Gynecology Referral InformationReferral ProcessedReferral: Pending Pulmonology Referral InformationReferralProcessed Referral: Pending Psychiatry Referral InformationReferralInitiatedReferral: Pending Respiratory Services Referral InformationReferralInitiatedReferral: Pending Ophthalmology Referral InformationReferralInitiatedReferral: [facility] WPtel: [address] [facility] [address] [place] USWriter placed a call out to the patient to notify her that it has been recommended that she be seenby a urologist. Patient agreed to be seen, does not have a provider of choice and no transportationissues. [employer] faxed referral and clinical notes to [facility] in [place], [place] near the patient's home. Patient to [...] seen and prefers a provider in the [place] or [place] area. [employer] placed a call out to everyone listed in the area and the only location that was able to accept the patient's insurance was [address] [phone] and spoke with Maylin. Maylin asked that the patient's referral, face sheet and visit notes be faxed to . [employer] faxed over requested documents. Patient appointment confirmation letter generated and mailed to her home address. Patient to call to schedule an appointment.ProcessedReferral: [facility] WPtel: [address] [facility] [address] [place], [place] [id number] USPatient notified that it has been advised that she be seen by Neurology. Patient agreed to be seen and prefers to be seen by a provider in the [place], [place] area. Patient denies any concerns with transportation, and prefers to schedule her own appointment. [employer] [facility] and spoke with Neeraj P: who confirmed that their office is able to acceptnew patients and the patient's insurance. After confirming the providers fax number, credit underwriter faxed over the patient's referral, and most recent clinical notes to F: . Patient to call to schedule her appointment. Appointment confirmation letter mailed to the patient's home address. CCDA completed.ProcessedReferral: Pending Nephrology Referral InformationReferralProcessedReferral: Pending Podiatry Referral Information ReferralInitiatedReferral: Pending Podiatry Referral InformationReferral ProcessedReferral: Pending Podiatry Referral InformationReferralInitiated Instructions Comment Date Assessment and plan reviewed with patient . R82.90-791.9 Abnormal urine finding UA dipstick +leukocytes and trace non hemolyzed blood, will send urine for UA reflex to molecular M25.531-719.43 Right wrist pain routine follow up with Dr Watson-orthopedics last appt 07/14/2020 quit outpatient PT as didn't feel it was helpful MRI with contrast per orthopedics completed 06/30/2020- per patiet revealed torn ligament to right wrist-record requested Dr. Tee Shahid, hand animal control specialist, outpatient surgery planned 10/09/2019 E11.42-250.60 Type 2 diabetes mellitus with peripheral neuropathy testing BID and PRN if feeling symptomatic 89-105, patient reports feeling symptomatic for BS >100, RBS 103 Metformin 1000mg BID - received new monitor [employer] through [employer]-participant of [employer] on demand - will send all diabetic supplies to patient 04/14/2020 hemoglobin 5.6; 10/17/2019 Hemoglobin A1C 6.0; 07/04/2019 Hgb A1C 5.6 10/17/2019 [place] Fany 710-instructed on good daily foot care [...] Echocardiogram DOS 07/02/2020 Norrmal LVSF, EF 60% labs drawn, results pending N18.9-585.9 Chronic kidney disease, unspecified avoid nephro toxic drugs, 04/17/2020 GFR >100, renal function remains stable; Patient denies ability to drink water stating that it dehydrates her-doesn't know diagnosis, but indicates she was told this by previous urologist routine urology follow up-last appt in August 2020 labs drawn, results pending K21.9-530.81 GERD (gastroesophageal reflux disease) increase omeprazole to BID x 1 month, will plan reduction back to daily at that time G47.33-327.23 Obstructive sleep apnea (adult) (pediatric); J45.909-493.90 Asthma continue inhalers nebulizer routine f/u Dr. Garcia, pulmonology appt August 2020 F43.23-309.28 Adjustment disorder with mixed anxiety and depressed mood routine follow up [facility] [place] 08/19/2020 PHQ 9 Scoere 1, admits to feeling down at times due to not able to bring dog to new apartment and occasionally misses Functional Assessment independent with ADLs labs drawn, results pending E03.9-244.9 Hypothyroidism, unspecified cont levothyroxine E78.5-272.4 Hyperlipidemia, [...] new appt for pap in June 2020-[facility]-reports pap negative-recordsrequested Z01.89-V72.85 Encounter for screening for [...] visit verbalized understanding of all above topics. 09/24/2020 Medical Equipment No Medical Equipment data Advance Directives No Advance Directive data
--- OUTSIDE RECORDS SUMMARY | 2023-12-07 02:13 | XMS_ITS | CCD ---
Author Name Leena Culver NP Address [id number] [place] [address] [place] [id number] Phone Organization [employer] [facility] Phone Care Team Providers Care K9 Handler Name Role Phone Anna Culver NP Primary Care Provider Unav ailable Unavailable Chronic Care Management Unavaila ble Summary Purpose DataExchange Insurance Providers Payer name Policy type / Coverage type Covered constitution party ID Effective Begin Date Effective End Date SUKI MAYO [id number] Unknown Unknown Family history Mother Diagnosis Age [...] 05/31/2018 Education level Unknown Some High School 10th05/31/20184334QrlvepfbikLfhdizhYstlhkxxbe84/29/2018Tobacco historySNOMED CT: 522260023Hcc never smoked or chewed ngeycnp5605/31/2018Alcohol historySNOMED CT: 202361798Ydprx drinks linhitb6605/31/2018Has the patient ever used illegal drugs? UnknownHas never used illegal drugs05/31/2018DNR Order/ Advanced Directive UnknownFull Code05/31/2018 Allergies, Adverse Reactions, Alerts Substance Reaction Codes Entered Date Inactivated Date Status *No known food allergies Xtcethq8809/06/2018No Inactive DateActiveMethylprednisolonehivesRxNorm: 6902 09/06/2018No Inactive DateActive Problems Condition Codes Effective Dates Condition St atus Type 2 diabetes mellitus with peripheral neuropathy ICD-10: E11.42 ICD-9: 250.60011/28/2019ActiveAdjustment disorder with mixed anxiety and depressed moodICD-10: F43.23 ICD-9: 309.2812ActivePolyneuropathy, unspecifiedICD-10: G62.9 ICD-9: 356.908ActiveRight wrist painICD-10: M25.531 ICD-9: 719.4308ActiveEssential (primary) hypertensionICD-10: I10 ICD-9: 401.901ActiveEncounter for screening, [...] 917.005ActiveObstructive sleep apnea (adult) (pediatric)ICD-10: G47.33 ICD-9: 327.2309/ActiveEncounter [...] Z23 ICD-9: V03.907/ActivePatient Not SeenICD-10: UXZ.01 ICD-9: XZ0.107ActiveOther lobsterman (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ICD-10: Z79.899 ICD-9: V58.6907/ActiveChest pain, unspecifiedICD-10: R07.9 ICD-9: 786.5002ActiveEncounter for preprocedural cardiovascular examinationICD-10: Z01.810 ICD-9: V72.8106/ActiveDyspnea, unspecifiedICD-10: R06.00 ICD-9: 786.ActivePost-traumatic stress disorder, unspecifiedICD-10: F43.10 ICD-9: 309.8112ActiveWheezingICD-10: R06.2 ICD-9: 786.0708/08/2018ActiveAbnormal electrocardiogram [ECG] [EKG]ICD-10: R94.31 ICD-9: 794.ActiveEdema, unspecifiedICD-10: R60.9 ICD-9: 782.310ActiveHeadacheICD-10: R51 ICD-9: 784.ActiveLong term (current) use of non-steroidal anti- inflammatories (NSAID)ICD-10: Z79.1 ICD-9: V58.64006/13/2018Active Medications Medication Codes Instructions Start Date Stop Date Status Fill Instructions metformin 1,000 mg tablet RxNorm: 168857 1 Tablet(s) Oral two times a day 08/19/20 20 2020 Inactive start on September 11, 2020 metformin 500 mg tablet RxNorm: 540863 1 Tablet(s) Oral two times a day take with 500mg to equal 1000mg 08/19/20 20 2019 Inactive gabapentin 300 mg capsule RxNorm: 344283 TAKE 1 CAPSULE BY MOUTH THREE TIMES DAILY 07/11/20 20 2020 Inactive cetirizine 10 mg tablet RxNorm: 0927388 TAKE (1) TABLET BY MOUTH DAILY 07/11/20 20 2020 Inactive metformin 500 mg tablet RxNorm: 426532 1 Tablet(s) Oral two times a day 07/08/20 20 2019 Inactive loperamide 2 mg tablet RxNorm: 068808 1 Tablet(s) Oral as needed take one tablet after each loose stool, maximum of 8 tablets in 24 hours 06/24/202021 Inactive Sudafed 12 Hour 120 mg tablet,extended release RxNorm: 7649880 TAKE 1 TABLET BY MOUTH EVERY 12 HOURS NEEDED 06/11/20 20 2019 Inactive hydrochlorothiazide 25 mg tablet RxNorm: 386271 TAKE (1) TABLET BY MOUTH EVERY DAY 06/11/202019 Inactive omeprazole 20 mg capsule,delayed release RxNorm: 201706 TAKE 1 CAPSULE BY MOUTH EVERY DAY 05/14/20 20 2020 Inactive metformin 500 mg tablet RxNorm: 040941 1 Tablet(s) Oral every day 05/12/20 20 2019 Inactive True Metrix Glucose Test Strip RxNorm: 1 Test Strips Miscellaneous two times a day as needed 04/17/20 No Stop Date Active metformin 500 mg tablet RxNorm: 751509 1 Tablet(s) Oral every day 04/17/20 20 2019 Inactive diclofenac sodium 75 mg tablet,delayed release RxNorm: 627987 1 Tablet(s) PO BID 04/14/20 20 2021 Inactive This refill negates all other refills of this medication Sudafed 12 Hour 120 mg tablet,extended release RxNorm: 1163649 TAKE 1 TABLET BY MOUTH EVERY 12 HOURS NEEDED 03/14/20 20 2019 Inactive True Metrix Glucose Test Strip RxNorm: 1 Test Strips Miscellaneous every morning 03/13/20 20 2019 Inactive 100/container True Metrix Glucose Test Strip RxNorm: 1 Test Strips Miscellaneous QAM 02/22/20 20 2019 Inactive 100/container loperamide 2 mg tablet RxNorm: 714696 1 Tablet(s) Oral as needed take one tablet after each loose stool, maximum of 8 tablets in 24 hours 02/22/20 20 2019 Inactive levothyroxine 50 mcg tablet RxNorm: 856071 1 Tablet(s) PO daily 01/17/20 20 2020 Inactive cetirizine 10 mg tablet RxNorm: 9629597 1 Tablet(s) PO daily 01/17/20 20 2019 Inactive loperamide 2 mg tablet RxNorm: 028493 1 Tablet(s) Oral as needed take one tablet after each loose stool, maximum of 8 tablets in 24 hours 01/17/20 20 2019 Inactive quetiapine 100 mg tablet RxNorm: 231375 1 Tablet(s) Oral every night at bedtime 01/17/20 20 2019 Inactive gabapentin 300 mg capsule RxNorm: 140370 1 Capsule(s) PO TID 01/17/20 20 2019 Inactive lisinopril 2.5 mg tablet RxNorm: 897138 1 Tablet(s) PO daily 01/15/20 20 2020 Inactive Singulair 10 mg tablet RxNorm: 448121 1 Tablet(s) PO daily 01/15/20 20 2020 Inactive levothyroxine 50 mcg tablet RxNorm: 949905 1 Tablet(s) PO daily 01/15/20 20 2019 Inactive gabapentin 300 mg capsule RxNorm: 110399 1 Capsule(s) PO TID 01/15/20 20 2019 Inactive cetirizine 10 mg tablet RxNorm: 9803758 1 Tablet(s) PO daily 01/15/20 20 2019 Inactive gentamicin 0.3 % eye drops RxNorm: 133852 1 Drop(s) ophthalmic (eye) four times a day 12/29/19 20 2019 Inactive gentamicin 0.3 % eye drops RxNorm: 763520 1 Drop(s) ophthalmic (eye) four times a day 12/29/19 20 2019 Inactive gentamicin 0.3 % eye drops RxNorm: 407333 1 Drop(s) ophthalmic (eye) four times a day 12/29/19 20 2019 Inactive hydrochlorothiazide 25 mg tablet RxNorm: 743656 1 Tablet(s) Oral every day 12/21/19 20 2019 Inactive Sudafed 12 Hour 120 mg tablet,extended release RxNorm: 5407049 TAKE (1) TABLET BY MOUTH EVERY 12 HOURS NEEDED 12/21/19 20 2019 Inactive loperamide 2 mg tablet RxNorm: 860465 1 Tablet(s) Oral as needed take one tablet after each loose stool, maximum of 8 tablets in 24 hours 12/11/19 20 2019 Inactive loperamide 2 mg tablet RxNorm: 408817 1 Tablet(s) Oral as needed take one tablet after each loose stool, maximum of 8 tablets in 24 hours 12/11/19 20 2019 Inactive atorvastatin 40 mg tablet RxNorm: 071535 1 Tablet(s) Oral every day 11/29/19 20 2020 Inactive quetiapine 100 mg tablet RxNorm: 792408 1 Tablet(s) Oral every night at bedtime 11/28/19 20 2019 Inactive sertraline 100 mg tablet RxNorm: 180601 1 Tablet(s) Oral 11/28/19 20 2019 Inactive omeprazole 20 mg capsule,delayed release RxNorm: 960904 1 Capsule(s) Oral every day 11/20/19 20 2019 Inactive amoxicillin 250 mg capsule RxNorm: 346942 1 Capsule(s) Oral three times a day 11/07/19 20 2019 Inactive multivitamin with iron-mineral tablet RxNorm: 1 Tablet(s) Oral every day 10/29/19 20 2021 Inactive cetirizine 10 mg tablet RxNorm: 2805320 1 Tablet(s) PO daily 10/20/19 20 2019 Inactive This refill negates all other refills of this medication. Please do not auto refill Singulair 10 mg tablet RxNorm: 372924 1 Tablet(s) PO daily 10/20/19 20 2019 Inactive This refill negates all other refills of this medication gabapentin 300 mg capsule RxNorm: 954151 1 Capsule(s) PO TID 10/20/19 20 2019 Inactive lisinopril 2.5 mg tablet RxNorm: 775739 1 Tablet(s) PO daily 10/20/19 20 2019 Inactive levothyroxine 50 mcg tablet RxNorm: 303552 1 Tablet(s) PO daily 10/20/19 20 2019 Inactive This refill negates all other refills of this medication fenugreek seed extract 500 mg capsule RxNorm: 1 Capsule(s) Oral three times a day 10/17/19 20 2021 Inactive hydrochlorothiazide 25 mg tablet RxNorm: 398282 1 Tablet(s) Oral every day 10/17/19 20 2019 Inactive Alcohol Prep Pads RxNorm: 281157 1 Patch TOP QAM 10/16/19 20 2020 Inactive loperamide 2 mg tablet RxNorm: 165725 1 Tablet(s) Oral as needed take one [...] 2019 Inactive hydrochlorothiazide 25 mg tablet RxNorm: 886182 1 Tablet(s) Oral every day 09/19/20 19 2019 Inactive Sudafed 12 Hour 120 mg tablet,extended release RxNorm: 9043506 1 Tablet(s) Oral every 12 hours as needed 09/11/20 19 2018 Inactive omeprazole 20 mg capsule,delayed release RxNorm: 327101 1 Capsule(s) Oral every day 09/07/20 19 2019 Inactive Sudafed 12 Hour 120 mg tablet,extended release RxNorm: 3912049 1 Tablet(s) Oral every 12 hours as needed 09/04/20 19 2018 Inactive pantoprazole 40 mg tablet,delayed release RxNorm: 733090 1 Tablet(s) Oral every day 08/24/20 19 2018 Inactive discontinue any other H2Blkr. and PPI albuterol sulfate 2.5 mg/3 mL (0.083 %) solution for nebulization RxNorm: 583435 1 Vial Inhalation every four hours as needed as needed for dyspnea 08/17/20 19 2019 Inactive 60/box. This refill negates all other refills of this medication. Please do not fill early. Please do not auto refill. Symbicort 160 mcg-4.5 mcg/actuation HFA aerosol inhaler RxNorm: 7765563 2 Puff(s) INH BID 08/17/20 No Stop Date Active Alcohol Prep Pads RxNorm: 512326 1 Patch TOP QAM 08/17/20 19 2019 Inactive Ventolin HFA 90 mcg/actuation aerosol inhaler RxNorm: 417551 2 Puff(s) INH QID 08/09/20 19 2019 Inactive Please do not fill early. Please do not auto refill. This refill negates all other refills of this medication True Metrix Glucose Test Strip RxNorm: 1 Test Strips Miscellaneous QAM 08/09/20 19 2019 Inactive 100/container atorvastatin 40 mg tablet RxNorm: 143741 1 Tablet(s) Oral every day 07/04/20 19 2019 Inactive levmetamfetamine 50 mg nasal inhaler RxNorm: 1 Unit(s) NASAL Q3-4H Do not use more than every 3 hours or 8 times/24hours 06/26/20 19 2021 Inactive Please do not auto refill. This refill negates all other refills of this medication buspirone 7.5 mg tablet RxNorm: 348916 1 Tablet(s) PO BID 06/26/20 19 2020 Inactive This refill negates all other refills of this medication hydrochlorothiazide 12.5 mg tablet RxNorm: 425939 1 Tablet(s) PO QAM 06/26/20 19 2019 Inactive Ventolin HFA 90 mcg/actuation aerosol inhaler RxNorm: 385638 2 Puff(s) INH QID 06/26/20 19 2018 Inactive Please do not fill early. Please do not auto refill. This refill negates all other refills of this medication Singulair 10 mg tablet RxNorm: 782261 1 Tablet(s) PO daily 06/26/20 19 2019 Inactive This refill negates all other refills of this medication cetirizine 10 mg tablet RxNorm: 4036979 1 Tablet(s) PO daily 06/26/20 19 2019 Inactive This refill negates all other refills of this medication. Please do not auto refill levothyroxine 50 mcg tablet RxNorm: 050868 1 Tablet(s) PO daily 06/26/20 19 2019 Inactive This refill negates all other refills of this medication diclofenac sodium 75 mg tablet,delayed release RxNorm: 461116 1 Tablet(s) PO BID 06/26/20 19 2019 Inactive This refill negates all other refills of this medication ranitidine 150 mg tablet RxNorm: 209209 1 Tablet(s) PO BID 06/26/20 19 2018 Inactive This refill negates all other refills of this medication Calcium 600-D3 Plus (mag-zinc) 600 mg calcium-800 unit-50 mg tablet RxNorm: 1 Tablet(s) PO daily take an additonal tablet for itching. 06/26/20 19 2018 Inactive This refill negates all other refills of this medication albuterol sulfate 2.5 mg/3 mL (0.083 %) solution for nebulization RxNorm: 822169 1 Vial INH QID 06/26/20 19 2018 Inactive 60/box. This refill negates all other refills of this medication. Please do not fill early. Please do not auto refill. lisinopril 2.5 mg tablet RxNorm: 949747 1 Tablet(s) PO daily 06/21/20 19 2019 Inactive gabapentin 300 mg capsule RxNorm: 854940 1 Capsule(s) PO TID 06/21/20 19 2019 Inactive atorvastatin 20 mg tablet RxNorm: 984970 1 Tablet(s) PO QHS 06/07/20 19 2018 Inactive This refill negates all other refills of this medication TRUEplus Lancets 30 gauge RxNorm: 1 Lancets Miscellaneous QAM 05/29/20 19 2018 Inactive 100/box gabapentin 300 mg capsule RxNorm: 029045 1 Capsule(s) PO TID 05/03/20 19 2018 Inactive Flintstones Complete (iron) 18 mg iron chewable tablet RxNorm: 1 Tablet(s) PO daily 04/04/20 19 2021 Inactive This refill negates all other refills of this medication gabapentin 300 mg capsule RxNorm: 639568 1 Capsule(s) PO TID as needed 02/01/20 19 2018 Inactive True Metrix Glucose Test Strip RxNorm: 1 Test Strips Miscellaneous QAM 02/01/20 19 2018 Inactive 100/container Alcohol Prep Pads RxNorm: 203165 1 Patch TOP QAM 02/01/20 19 2018 Inactive TRUEplus Lancets 30 gauge RxNorm: 1 Lancets Miscellaneous QAM 02/01/20 19 2018 Inactive 100/box lisinopril 2.5 mg tablet RxNorm: 773365 1 Tablet(s) PO daily 12/28/19 19 2018 Inactive ranitidine 150 mg tablet RxNorm: 827472 1 Tablet(s) PO BID 10/21/192018 Inactive This refill negates all other refills of this medication albuterol sulfate 2.5 mg/3 mL (0.083 %) solution for nebulization RxNorm: 962501 1 Vial INH QID 10/21/192018 Inactive 60/box. [...] this medication gabapentin 300 mg capsule RxNorm: 672415 1 Capsule(s) PO TID as needed 10/21/19 19 2018 Inactive atorvastatin 20 mg tablet RxNorm: 197543 1 Tablet(s) PO QHS 10/21/192018 Inactive This refill negates all other refills of this medication trazodone 50 mg tablet RxNorm: 607600 1 Tablet(s) PO QHS 10/21/19 19 2018 Inactive This refill negates all other refills of this medication Ventolin HFA 90 mcg/actuation aerosol inhaler RxNorm: 681566 2 Puff(s) INH QID 10/21/19 19 2018 [...] this medication Singulair 10 mg tablet RxNorm: 270451 1 Tablet(s) PO daily 10/21/19 19 2018 Inactive This refill negates all other refills of this medication buspirone 7.5 mg tablet RxNorm: 084227 1 Tablet(s) PO BID 10/21/192018 Inactive This refill negates all other refills of this medication diclofenac sodium 75 mg tablet,delayed release RxNorm: 398405 1 Tablet(s) PO BID 10/21/19 19 2018 Inactive This refill negates all other refills of this medication hydrochlorothiazide 12.5 mg tablet RxNorm: 441626 1 Tablet(s) PO QAM 10/21/19 19 2018 Inactive metoprolol succinate ER 50 mg tablet,extended release 24 hr RxNorm: 583852 1 Tablet(s) PO daily 10/21/19 19 2018 Inactive This refill negates all other refills of this medication levothyroxine 50 mcg tablet RxNorm: 185235 1 Tablet(s) PO daily 10/21/192018 Inactive This refill negates all other refills of this medication cetirizine 10 mg tablet RxNorm: 0017287 1 Tablet(s) PO daily 10/21/192018 Inactive This refill negates all other refills of this medication. Please do not auto refill Flintstones Complete (iron) 18 mg iron chewable tablet RxNorm: 1 Tablet(s) PO daily 10/21/192018 Inactive This refill negates all other refills of this medication buspirone 7.5 mg tablet RxNorm: 511948 1 Tablet(s) PO BID 10/12/192018 Inactive cetirizine 10 mg tablet RxNorm: 8407106 1 Tablet(s) PO daily 09/28/202018 Inactive Guaiasorb DM 10 mg-100 mg/5 mL oral liquid RxNorm: 565026 10 Milliliter(s) PO As needed every 4 hr 09/24/20 18 2018 Inactive Vicks Vaporub 4.7 %-1.2 %-2.6 % topical ointment RxNorm: 1308702 1 Application TOP TID 09/24/20 18 2018 Inactive levmetamfetamine 50 mg nasal inhaler RxNorm: 1 Unit(s) NASAL Q3-4H 09/24/20 18 2017 Inactive sertraline 50 mg tablet RxNorm: 613396 1 Tablet(s) PO daily 09/09/20 18 2018 Inactive Please note dose trazodone 50 mg tablet RxNorm: 259080 1 Tablet(s) PO QHS 09/06/20 18 2018 Inactive sertraline 50 mg tablet RxNorm: 374216 1 Tablet(s) PO daily 09/06/20 18 2017 Inactive amoxicillin 500 mg tablet RxNorm: 616837 1 Tablet(s) PO Q12H 08/31/20 18 2017 Inactive albuterol sulfate 2.5 mg/3 mL (0.083 %) solution for nebulization RxNorm: 964274 1 Vial INH QID 08/10/20 18 2018 Inactive 60/box. Please do not fill early. Please do not auto refill. Prozac 10 mg capsule RxNorm: 370138 1 Capsule(s) PO daily 08/09/20 18 2017 Inactive buspirone 7.5 mg tablet RxNorm: 466350 1 Tablet(s) PO BID 08/09/20 18 2018 Inactive gabapentin 300 mg capsule RxNorm: 051329 1 Capsule(s) PO TID as needed 08/01/20 18 2018 Inactive hydrochlorothiazide 12.5 mg tablet RxNorm: 001977 1 Tablet(s) PO QAM 08/01/20 18 2018 Inactive ranitidine 150 mg tablet RxNorm: 393650 1 Tablet(s) PO BID 08/01/20 18 2018 Inactive Macrobid 100 mg capsule RxNorm: 705864 1 Capsule(s) PO Q12H 06/21/20 18 2017 Inactive Singulair 10 mg tablet RxNorm: 033190 1 Tablet(s) PO daily 06/14/20 18 2018 Inactive Ventolin HFA 90 mcg/actuation aerosol inhaler RxNorm: 7610252 2 Puff(s) INH QID 06/14/20 18 2018 Inactive Singulair 10 mg tablet RxNorm: 816609 1 Tablet(s) PO daily 06/14/20 18 2017 Inactive buspirone 7.5 mg tablet RxNorm: 027255 1 Tablet(s) PO BID 06/14/20 18 2017 Inactive Prozac 10 mg capsule RxNorm: 273586 1 Capsule(s) PO daily 06/14/20 18 2017 Inactive Neilmed Pediatric Sinus Rinse Refill packet RxNorm: 1 Unit Dose NASAL PRN 05/31/20 18 2021 Inactive diclofenac sodium 75 mg tablet,delayed release RxNorm: 597086 1 Tablet(s) PO BID 05/31/20 18 2017 Inactive lisinopril 2.5 mg tablet RxNorm: 393547 1 Tablet(s) PO daily 05/31/20 18 2017 Inactive metoprolol succinate ER 50 mg tablet,extended release 24 hr RxNorm: 650573 1 Tablet(s) PO daily 05/31/20 18 2017 Inactive levothyroxine 50 mcg tablet RxNorm: 450545 1 Tablet(s) PO daily 05/31/20 18 2017 Inactive TRUEplus Lancets 30 gauge RxNorm: 1 Lancets Miscellaneous QAM 05/31/20 18 2017 Inactive 100/box Ventolin HFA 90 mcg/actuation aerosol inhaler RxNorm: 464400 2 Puff(s) INH QID 05/31/20 18 2017 Inactive Aleve 220 mg capsule RxNorm: 1076579 1 Capsule(s) PO BID 05/31/20 18 2018 Inactive ranitidine 150 mg tablet RxNorm: 153604 1 Tablet(s) PO BID 05/31/20 18 2017 Inactive gabapentin 300 mg capsule RxNorm: 750715 1 Capsule(s) PO TID as needed 05/31/20 18 2017 Inactive atorvastatin 20 mg tablet RxNorm: 864753 1 Tablet(s) PO QHS 05/31/20 18 2017 Inactive True Metrix Glucose Test Strip RxNorm: 1 Test Strips Miscellaneous QA 05/31/20 18 2017 Inactive 50/container Calcium 600-D3 Plus 600 mg calcium-800 unit-50 mg tablet RxNorm: 1 Tablet(s) PO daily take an additonal tablet for itching. 05/31/20 18 2017 Inactive hydrochlorothiazide 12.5 mg tablet RxNorm: 073569 1 Tablet(s) PO QAM 05/31/20 18 2017 Inactive Flintstones Complete (iron) 18 mg iron chewable tablet RxNorm: 1 Tablet(s) PO daily 05/31/20 18 2017 Inactive d-mannose oral powder RxNorm: PO 18 2021 Inactive True Metrix Glucose Meter RxNorm: miscellaneous 08/17/20 19 2018 Inactive sertraline 50 mg tablet RxNorm: 519558 1 Tablet(s) PO daily 11/28/19 20 2019 Inactive loperamide 2 mg tablet RxNorm: 222815 oral 09/29/20 19 2018 Inactive Symbicort 160 mcg-4.5 mcg/actuation HFA aerosol inhaler RxNorm: 6742234 2 Puff(s) INH BID 08/17/20 19 2018 Inactive Medication Administered No Medication Administered data Procedures Procedure Codes Date Patient Health Questionnaire CPT-4: DPHQ Electrocardiogram CPT-4: 79177 05/14/2020 Tobacco Assessment/Screening CPT-4: TCA [facility] 735[facility]38 4 CPT-4: DFRA01/01/2020Functional AssessmentCPT-4: DFA01/01/2020[place] Fany AssessmentCPT-4: DSWA11/28/2019Patient Health QuestionnaireCPT-4: DPHQ11/28/2019 [place] Fany AssessmentCPT-4: DSWA10/17/2019HypertensionCPT-4: HTN10/17/2019 [facility] CPT-4: DFRA09/19/2019Functional AssessmentCPT-4: DFA111/20/2018Urinalysis, dip stickCPT-4: 5775098Tobacco Assessment/ScreeningCPT-4: TCA05/24/2019 Patient Health QuestionnaireCPT-4: DPHQ05/24/2019AHA/REBECCA Classification AssessmentCPT-4: DAHA04/25/2019Controlled Substance ReportCPT-4: CTRSU04/25/2019 Urinalysis, dip stickCPT-4: 4475618Urinalysis, dip stickCPT-4: 16598 03/28/20191673P6P-YudymhcdfmfvfgnZQE-6: 13041NiraruqU8S-FnicdwfwfbmehbkHDU-7: 91180 EuuxkhjL7E-SqfeztdimmohsiqRAO-3: 62289VhykatmF2X-NiskttitnkkffsfSAQ-4: [address]: 164914590 CPT-4: W35Bmaeqps Reason For Visit Reason For Visit Effective Dates Notes hypertension 08/26/2020 diabetes mellitus 08/26/2020 mole check 08/26/2020 Interim health update 08/26/2020 Encounters Encounter Performer Location Location Address Codes Magdi e ([id number]) (EST PT) EXPANDED [facility] VISIT Diagnosis: Type 2 diabetes mellitus with peripheral neuropathy[ICD10: E11.42] Anna Bk [address] [place] [address] 59325VPI-2: 5897890 Plan of Care Planned Activity Notes Codes Status Date Visit Plan: M25.531-719.43 Right wrist pain routine follow up with Dr Watson-orthopedics last appt 07/14/2020-record requested quit outpatient PT as didn't feel it was helpful MRI with contrast per orthopedics completed 06/30/2020- per patiet revealed torn ligament to right wrist-record requested in process of being referred to hand intelligence research specialist-will send information when available E11.42-250.60 Type 2 diabetes mellitus with peripheral neuropathy testing BID and PRN if feeling symptomatic 89-125, patient reports feeling symptomatic for BS >100, Metformin increased to 1000mg BID -not started yet-won't start until new med pack received (09/11/2020 received new monitor [employer] through [facility]-participant of [...] anxiety and depressed mood routine follow up [place] [facility] [place] 08/19/2020 PHQ 9 Scoere 1, admits to [...] feeling light headed Z13.9-V82.9 Encounter for screening, ayxsvnrkixk52/6/2020 Maltreatment assessment complete- patient denies any form of abuse or neglect Z68.43-V85.43 Adult BMI 50.0-59.9 kg/sq continues to loose weight trying to avoid soda, drinking sparkling flavor ed pal and occasional Heike Green Tea and honey Z12.4-V76.2 Encounter for screening for malignant neoplasm of cervix last pap January 2019 new appt for pap in June 2020-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 08/26/2020Patient Education: Patient Medication HjbqrxpZpcdluqbm49/24/2020 Patient Education: MyryvavtpqseLjrboycbp99/24/2020Patient Education: Diabetes Ihnebvlnp11/24/2020Appointment: Anna Culver WPtel: [address] [place], [place] [address]OH[address] USETV110/19/2019Appointment: Anna Culver WPtel: [phone] [facility] [address] [place] [address] [id number]: Anna Culver WPtel: [phone] [place] [address] [address] [place] [address] [id number]: Gianna Birmingham MCtel: [address] [facility] [address] [id number]: Anna Culver WPtel: [phone] [place] [address] [address] [place] [address] XAN04553/06/2020Appointment: Anna Culver WPtel: [phone] [place] [address] [id number]: Anna Culver WPtel: [phone] [place] [address] [place] [address] [id number]/Appointment: Anna Culver WPtel: [phone] [place] [address] [place] [address] [id number]: Anna Culver WPtel: [phone] [place] [address] [place] [address] [id number]/Appointment: Anna Culver WPtel: [phone] [place] [address] [place] [address] [id number]/Appointment: Anna Culver WPtel: [phone] [place] [address] [place] [address] [id number]/Appointment: Anna Culver WPtel: [phone] [place] [address] [address] [place] [address] [id number]/Appointment: Anna Culver WPtel: [phone] [place] [address] [place] [address] [id number]: Anna Culver WPtel: [phone] [place] [address] [address] [place] [id number]/20/2018Appointment: Sudha Hernadez WPtel: [address] [facility] [address] [id number]: Sudha Hernadez WPtel: [address] [facility] [address] [id number]: Charlene Oropeza WPtel: [address] [facility] [address] [id number]: DannyEnedeliaGejrsiD43626/26/2019Appointment: Charlene Oropeza WPtel: [address] [facility] [address] [id number]: Ha[place]richt, Rasta WPtel: [address] [facility] [address] [id number]: Haupricht, Rasta WPtel: [address] [facility] [address] [id number]: Ha[place]richt, Rasta WPtel: [address] [facility] [address] [id number]: Ha[place]richt, Rasta WPtel: [address] [facility] [address] [id number]: Pending Gynecology Referral InformationReferral ProcessedReferral: Pending Pulmonology Referral InformationReferralProcessed Referral: Pending Psychiatry Referral InformationReferralInitiatedReferral: Pending Respiratory Services Referral InformationReferralInitiatedReferral: Pending Ophthalmology Referral InformationReferralInitiatedReferral: [facility] WPtel: [address] [facility] [address] [id number] USWriter placed a call out to the patient to notify her that it has been recommended that she be seenby a urologist. Patient agreed to be seen, does not have a provider of choice and no transportationissues. Bowling Ball Assembler faxed referral and clinical notes to [facility] in [place], [place] near the patient's home. Patient to [...] prefers a provider in the [place] or [place] area. Bowling Ball Assembler placed a call out to everyone listed in the area and the only location that was able to accept the patient's insurance was [address] [address] and spoke with Maylin. Maylin asked that the patient's referral, face sheet and visit notes be faxed to . Bowling Ball Assembler faxed over requested documents. Patient appointment confirmation letter generated and mailed to her home address. Patient to call to schedule an appointment.ProcessedReferral: [facility] WPtel: [address] [facility] [address] [id number] USPatient notified that it has been advised that she be seen by Neurology. Patient agreed to be seen and prefers to be seen by a provider in the [place], [place] area. Patient denies any concerns with transportation, and prefers to schedule her own appointment. Bowling Ball Assembler placed a call out to [facility] and spoke with Neeraj Mcfarland: who confirmed that their office is able to acceptnew patients and the patient's insurance. After confirming the providers fax number, advertising copy writer faxed over the patient's referral, and most recent clinical notes to F: . Patient to call to schedule her appointment. Appointment confirmation letter mailed to the patient's home address. CCDA completed.ProcessedReferral: Pending Nephrology Referral InformationReferralProcessedReferral: Pending Podiatry Referral Information ReferralInitiatedReferral: Pending Podiatry Referral InformationReferral ProcessedReferral: Pending Podiatry Referral InformationReferralInitiated Instructions Comment Date Assessment and plan reviewed with patient . [id number] Right wrist pain routine follow up with Dr Watson-orthopedics last appt 07/14/2020-record requested quit outpatient PT as didn't feel it was helpful MRI with contrast per orthopedics completed 06/30/2020- per patiet revealed torn ligament to right wrist-record requested in process of being referred to hand intelligence research specialist-will send information when available [id number] Type 2 diabetes mellitus with peripheral neuropathy testing BID and PRN if feeling symptomatic 89-125, patient reports feeling symptomatic for BS >100, Metformin increased to 1000mg BID -not started yet-won't start until new med pack received (09/11/2020 received new monitor [employer] through [employer]-participant of [employer] on demand - will send all diabetic [...] anxiety and depressed mood routine follow up [place] [facility] [place] 08/19/2020 PHQ 9 Scoere 1, admits to [...] new appt for pap in June 2020-[employer] Control Specialist-reports pap negative-recordsrequested Z01.89-V72.85 Encounter for screening [...] visit verbalized understanding of all above topics. 08/26/2020 Medical Equipment No Medical Equipment data Advance Directives No Advance Directive data
--- OUTSIDE RECORDS SUMMARY | 2023-12-07 02:13 | XMS_ITS | CCD ---
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 Phone Anna Culver NP Primary Care Provider Unav ailable Unavailable Chronic Care Management Unavaila ble Summary Purpose DataExchange Insurance Providers Payer name Policy type / Coverage type Covered constitution party ID Effective Begin Date Effective End Date SUKI MAYO [id number] Unknown Unknown Family history Mother Diagnosis Age [...] 05/31/2018 Education level Unknown Some High School 10th05/31/20189418SlvhccdwaoFutzbivIswmrphhyn99/29/2018Tobacco historySNOMED CT: 848900710Box never smoked or chewed [id number]/31/2018Alcohol historySNOMED CT: 317291309Fbuon drinks [id number]/31/2018Has the patient ever used illegal drugs? UnknownHas never used illegal drugs05/31/2018DNR Order/ Advanced Directive UnknownFull Code05/31/2018 Allergies, Adverse Reactions, Alerts Substance Reaction Codes Entered Date Inactivated Date Status *No known food allergies [id number]/06/2018No Inactive DateActiveMethylprednisolonehivesRxNorm: 6902 09/06/2018No Inactive DateActive Problems Condition Codes Effective Dates Condition St atus Urinary tract infection ICD-10: N39.0 ICD-9: 599.012ActiveAbnormal urine findingICD-10: R82.90 ICD-9: 791.912ActiveAdjustment disorder with mixed anxiety and depressed moodICD-10: F43.23 ICD-9: 309.2812ActiveGERD (gastroesophageal reflux disease)ICD-10: K21.9 ICD-9: 530.8112ActiveHypertensive heart disease with heart failureICD- 10: I11.0 ICD-9: 402.9107ActiveType 2 diabetes mellitus with peripheral neuropathy ICD-10: E11.42 ICD-9: 250.6002ActivePolyneuropathy, unspecifiedICD-10: G62.9 ICD-9: 356.908ActiveRight wrist painICD-10: M25.531 ICD-9: 719.4308ActiveEssential (primary) hypertensionICD-10: I10 ICD-9: 401.901ActiveEncounter for screening, unspecifiedICD-10: Z13.9 ICD-9: V82.9111/06/2017Active(Z12.4-V76.2) Encounter for screening for malignant neoplasm of cervixICD-10: Z12.4 ICD-9: V76.207ActiveChronic kidney disease, unspecifiedICD-10: N18.9 ICD-9: 585.909ActiveEncounter for immunizationICD-10: Z23 ICD-9: V04.8109ActiveHyperlipidemia, unspecifiedICD-10: E78.5 ICD-9: 272.408/ActiveHypothyroidism, unspecifiedICD-10: E03.9 ICD-9: 244.912Active(Z12.11-V76.51) Encounter for screening for malignant neoplasm of colonICD-10: Z12.11 ICD-9: V76.5107Active(Z12.31-V76.12) Encounter for screening mammogram for malignant neoplasm of breastICD-10: Z12.31 ICD-9: V76.1207ActiveAdult BMI 50.0-59.9 kg/sq mICD-10: Z68.43 ICD-9: V85.4308/ActiveAbrasion [...] ICD-9: V03.907/ActivePatient Not SeenICD-10: UXZ.01 ICD-9: XZ0.107ActiveOther 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 helper (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ICD-10: Z79.899 ICD-9: V58.6907/ActiveChest pain, [...] Fill Instructions Macrobid 100 mg capsule RxNorm: 808219 1 Capsule(s) Oral every 12 hours with food 10/01/20 20 2020 Inactive omeprazole 20 mg capsule,delayed release RxNorm: 099499 1 Capsule(s) Oral two times a day 09/24/20 20 2021 Inactive metformin 1,000 mg tablet RxNorm: 218897 1 Tablet(s) Oral two times a day 08/19/20 20 2020 Inactive start on September 11, 2020 metformin 500 mg tablet RxNorm: 145729 1 Tablet(s) Oral two times a day take with 500mg to equal 1000mg 08/19/20 20 2019 Inactive gabapentin 300 mg capsule RxNorm: 525122 TAKE 1 CAPSULE BY MOUTH THREE TIMES DAILY 07/11/20 20 2020 Inactive cetirizine 10 mg tablet RxNorm: 6242656 TAKE (1) TABLET BY MOUTH DAILY 07/11/20 20 2020 Inactive metformin 500 mg tablet RxNorm: 658251 1 Tablet(s) Oral two times a day 07/08/20 20 2019 Inactive loperamide 2 mg tablet RxNorm: 230475 1 Tablet(s) Oral as needed take one tablet after each loose stool, maximum of 8 tablets in 24 hours 06/24/20 20 2021 Inactive Sudafed 12 Hour 120 mg tablet,extended release RxNorm: 4965803 TAKE 1 TABLET BY MOUTH EVERY 12 HOURS NEEDED 06/11/20 20 2019 Inactive hydrochlorothiazide 25 mg tablet RxNorm: 694349 TAKE (1) TABLET BY MOUTH EVERY DAY 06/11/20 20 2019 Inactive omeprazole 20 mg capsule,delayed release RxNorm: 651778 TAKE 1 CAPSULE BY MOUTH EVERY DAY 05/14/20 20 2020 Inactive metformin 500 mg tablet RxNorm: 701013 1 Tablet(s) Oral every day 05/12/20 20 2019 Inactive True Metrix Glucose Test Strip RxNorm: 1 Test Strips Miscellaneous two times a day as needed 04/17/20 No Stop Date Active metformin 500 mg tablet RxNorm: 995992 1 Tablet(s) Oral every day 04/17/20 20 2019 Inactive diclofenac sodium 75 mg tablet,delayed release RxNorm: 675273 1 Tablet(s) PO BID 04/14/20 20 2021 Inactive This refill negates all other refills of this medication Sudafed 12 Hour 120 mg tablet,extended release RxNorm: 2311491 TAKE 1 TABLET BY MOUTH EVERY 12 HOURS NEEDED 03/14/20 20 2019 Inactive True Metrix Glucose Test Strip RxNorm: 1 Test Strips Miscellaneous every morning 03/13/20 20 2019 Inactive 100/container True Metrix Glucose Test Strip RxNorm: 1 Test Strips Miscellaneous QAM 02/22/20 20 2019 Inactive 100/container loperamide 2 mg tablet RxNorm: 937321 1 Tablet(s) Oral as needed take one tablet after each loose stool, maximum of 8 tablets in 24 hours 02/22/20 20 2019 Inactive levothyroxine 50 mcg tablet RxNorm: 730888 1 Tablet(s) PO daily 01/17/20 20 2020 Inactive cetirizine 10 mg tablet RxNorm: 5254166 1 Tablet(s) PO daily 01/17/20 20 2019 Inactive loperamide 2 mg tablet RxNorm: 408785 1 Tablet(s) Oral as needed take one tablet after each loose stool, maximum of 8 tablets in 24 hours 01/17/20 20 2019 Inactive quetiapine 100 mg tablet RxNorm: 423763 1 Tablet(s) Oral every night at bedtime 01/17/20 20 2019 Inactive gabapentin 300 mg capsule RxNorm: 492237 1 Capsule(s) PO TID 01/17/202019 Inactive lisinopril 2.5 mg tablet RxNorm: 303035 1 Tablet(s) PO daily 01/15/20 20 2020 Inactive Singulair 10 mg tablet RxNorm: 796791 1 Tablet(s) PO daily 01/15/20 20 2020 Inactive levothyroxine 50 mcg tablet RxNorm: 629840 1 Tablet(s) PO daily 01/15/20 20 2019 Inactive gabapentin 300 mg capsule RxNorm: 313906 1 Capsule(s) PO TID 01/15/20 20 2019 Inactive cetirizine 10 mg tablet RxNorm: 5416421 1 Tablet(s) PO daily 01/15/20 20 2019 Inactive gentamicin 0.3 % eye drops RxNorm: 520741 1 Drop(s) ophthalmic (eye) four times a day 12/29/19 20 2019 Inactive gentamicin 0.3 % eye drops RxNorm: 467084 1 Drop(s) ophthalmic (eye) four times a day 12/29/19 20 2019 Inactive gentamicin 0.3 % eye drops RxNorm: 986659 1 Drop(s) ophthalmic (eye) four times a day 12/29/19 20 2019 Inactive hydrochlorothiazide 25 mg tablet RxNorm: 838684 1 Tablet(s) Oral every day 12/21/192019 Inactive Sudafed 12 Hour 120 mg tablet,extended release RxNorm: 3841467 TAKE (1) TABLET BY MOUTH EVERY 12 HOURS NEEDED 12/21/19 20 2019 Inactive loperamide 2 mg tablet RxNorm: 768663 1 Tablet(s) Oral as needed take one tablet after each loose stool, maximum of 8 tablets in 24 hours 12/11/19 20 2019 Inactive loperamide 2 mg tablet RxNorm: 951208 1 Tablet(s) Oral as needed take one tablet after each loose stool, maximum of 8 tablets in 24 hours 12/11/19 20 2019 Inactive atorvastatin 40 mg tablet RxNorm: 402776 1 Tablet(s) Oral every day 11/29/19 20 2020 Inactive quetiapine 100 mg tablet RxNorm: 006420 1 Tablet(s) Oral every night at bedtime 11/28/19 20 2019 Inactive sertraline 100 mg tablet RxNorm: 967369 1 Tablet(s) Oral 11/28/19 20 2019 Inactive omeprazole 20 mg capsule,delayed release RxNorm: 024542 1 Capsule(s) Oral every day 11/20/19 20 2019 Inactive amoxicillin 250 mg capsule RxNorm: 863311 1 Capsule(s) Oral three times a day 11/07/19 20 2019 Inactive multivitamin with iron-mineral tablet RxNorm: 1 Tablet(s) Oral every day 10/29/19 20 2021 Inactive cetirizine 10 mg tablet RxNorm: 3657069 1 Tablet(s) PO daily 10/20/19 20 2019 Inactive This refill negates all other refills of this medication. Please do not auto refill Singulair 10 mg tablet RxNorm: 165076 1 Tablet(s) PO daily 10/20/19 20 2019 Inactive This refill negates all other refills of this medication gabapentin 300 mg capsule RxNorm: 200976 1 Capsule(s) PO TID 10/20/19 20 2019 Inactive lisinopril 2.5 mg tablet RxNorm: 558174 1 Tablet(s) PO daily 10/20/19 20 2019 Inactive levothyroxine 50 mcg tablet RxNorm: 722875 1 Tablet(s) PO daily 10/20/19 20 2019 Inactive This refill negates all other refills of this medication fenugreek seed extract 500 mg capsule RxNorm: 1 Capsule(s) Oral three times a day 10/17/19 20 2021 Inactive hydrochlorothiazide 25 mg tablet RxNorm: 808220 1 Tablet(s) Oral every day 10/17/19 20 2019 Inactive Alcohol Prep Pads RxNorm: 706994 1 Patch TOP QAM 10/16/19 20 2020 Inactive loperamide 2 mg tablet RxNorm: 222961 1 Tablet(s) Oral as needed take one [...] 2019 Inactive hydrochlorothiazide 25 mg tablet RxNorm: 168434 1 Tablet(s) Oral every day 09/19/20 19 2019 Inactive Sudafed 12 Hour 120 mg tablet,extended release RxNorm: 1346879 1 Tablet(s) Oral every 12 hours as needed 09/11/20 19 2018 Inactive omeprazole 20 mg capsule,delayed release RxNorm: 116191 1 Capsule(s) Oral every day 09/07/20 19 2019 Inactive Sudafed 12 Hour 120 mg tablet,extended release RxNorm: 2090066 1 Tablet(s) Oral every 12 hours as needed 09/04/20 19 2018 Inactive pantoprazole 40 mg tablet,delayed release RxNorm: 317290 1 Tablet(s) Oral every day 08/24/20 19 2018 Inactive discontinue any other H2Blkr. and PPI albuterol sulfate 2.5 mg/3 mL (0.083 %) solution for nebulization RxNorm: 879683 1 Vial Inhalation every four hours as needed as needed for dyspnea 08/17/20 19 2019 Inactive 60/box. This refill negates all other refills of this medication. Please do not fill early. Please do not auto refill. Symbicort 160 mcg-4.5 mcg/actuation HFA aerosol inhaler RxNorm: 1656439 2 Puff(s) INH BID 08/17/20 No Stop Date Active Alcohol Prep Pads RxNorm: 327317 1 Patch TOP QAM 08/17/20 19 2019 Inactive Ventolin HFA 90 mcg/actuation aerosol inhaler RxNorm: 058299 2 Puff(s) INH QID 08/09/20 19 2019 Inactive Please do not fill early. Please do not auto refill. This refill negates all other refills of this medication True Metrix Glucose Test Strip RxNorm: 1 Test Strips Miscellaneous QAM 08/09/20 19 2019 Inactive 100/container atorvastatin 40 mg tablet RxNorm: 020547 1 Tablet(s) Oral every day 07/04/20 19 2019 Inactive levmetamfetamine 50 mg nasal inhaler RxNorm: 1 Unit(s) NASAL Q3-4H Do not use more than every 3 hours or 8 times/24hours 06/26/20 19 2021 Inactive Please do not auto refill. This refill negates all other refills of this medication buspirone 7.5 mg tablet RxNorm: 286818 1 Tablet(s) PO BID 06/26/20 19 2020 Inactive This refill negates all other refills of this medication hydrochlorothiazide 12.5 mg tablet RxNorm: 584393 1 Tablet(s) PO QAM 06/26/20 19 2019 Inactive Ventolin HFA 90 mcg/actuation aerosol inhaler RxNorm: 488290 2 Puff(s) INH QID 06/26/20 19 2018 Inactive Please do not fill early. Please do not auto refill. This refill negates all other refills of this medication Singulair 10 mg tablet RxNorm: 330151 1 Tablet(s) PO daily 06/26/20 19 2019 Inactive This refill negates all other refills of this medication cetirizine 10 mg tablet RxNorm: 1142497 1 Tablet(s) PO daily 06/26/20 19 2019 Inactive This refill negates all other refills of this medication. Please do not auto refill levothyroxine 50 mcg tablet RxNorm: 519631 1 Tablet(s) PO daily 06/26/20 19 2019 Inactive This refill negates all other refills of this medication diclofenac sodium 75 mg tablet,delayed release RxNorm: 915365 1 Tablet(s) PO BID 06/26/20 19 2019 Inactive This refill negates all other refills of this medication ranitidine 150 mg tablet RxNorm: 431775 1 Tablet(s) PO BID 06/26/20 19 2018 Inactive This refill negates all other refills of this medication Calcium 600-D3 Plus (mag-zinc) 600 mg calcium-800 unit-50 mg tablet RxNorm: 1 Tablet(s) PO daily take an additonal tablet for itching. 06/26/20 19 2018 Inactive This refill negates all other refills of this medication albuterol sulfate 2.5 mg/3 mL (0.083 %) solution for nebulization RxNorm: 930320 1 Vial INH QID 06/26/20 19 2018 Inactive 60/box. This refill negates all other refills of this medication. Please do not fill early. Please do not auto refill. lisinopril 2.5 mg tablet RxNorm: 013975 1 Tablet(s) PO daily 06/21/20 19 2019 Inactive gabapentin 300 mg capsule RxNorm: 904858 1 Capsule(s) PO TID 06/21/20 19 2019 Inactive atorvastatin 20 mg tablet RxNorm: 638517 1 Tablet(s) PO QHS 06/07/20 19 2018 Inactive This refill negates all other refills of this medication TRUEplus Lancets 30 gauge RxNorm: 1 Lancets Miscellaneous QAM 05/29/20 19 2018 Inactive 100/box gabapentin 300 mg capsule RxNorm: 736949 1 Capsule(s) PO TID 05/03/20 19 2018 Inactive César Beckett (iron) 18 mg iron chewable tablet RxNorm: 1 Tablet(s) PO daily 04/04/202021 Inactive This refill negates all other refills of this medication gabapentin 300 mg capsule RxNorm: 262037 1 Capsule(s) PO TID as needed 02/01/202018 Inactive True Metrix Glucose Test Strip RxNorm: 1 Test Strips Miscellaneous QAM 02/01/20 19 2018 Inactive 100/container Alcohol Prep Pads RxNorm: 349241 1 Patch TOP QAM 02/01/20 19 2018 Inactive TRUEplus Lancets 30 gauge RxNorm: 1 Lancets Miscellaneous QAM 02/01/20 19 2018 Inactive 100/box lisinopril 2.5 mg tablet RxNorm: 575346 1 Tablet(s) PO daily 12/28/192018 Inactive ranitidine 150 mg tablet RxNorm: 000518 1 Tablet(s) PO BID 10/21/192018 Inactive This refill negates all other refills of this medication albuterol sulfate 2.5 mg/3 mL (0.083 %) solution for nebulization RxNorm: 123775 1 Vial INH QID 10/21/19 19 2018 [...] this medication gabapentin 300 mg capsule RxNorm: 799698 1 Capsule(s) PO TID as needed 10/21/19 19 2018 Inactive atorvastatin 20 mg tablet RxNorm: 229921 1 Tablet(s) PO QHS 10/21/19 19 2018 Inactive This refill negates all other refills of this medication trazodone 50 mg tablet RxNorm: 528816 1 Tablet(s) PO QHS 10/21/19 19 2018 Inactive This refill negates all other refills of this medication Ventolin HFA 90 mcg/actuation aerosol inhaler RxNorm: 424193 2 Puff(s) INH QID 10/21/19 19 2018 Inactive Please do not fill early. Please do not auto refill. This refill negates all other refills of this medication Calcium 600-D3 Plus 600 mg calcium-800 unit-50 mg tablet RxNorm: 1 Tablet(s) PO daily take an additonal tablet for itching. 10/21/192018 Inactive This refill negates all other refills of this medication Singulair 10 mg tablet RxNorm: 840005 1 Tablet(s) PO daily 10/21/192018 Inactive This refill negates all other refills of this medication buspirone 7.5 mg tablet RxNorm: 811450 1 Tablet(s) PO BID 10/21/192018 Inactive This refill negates all other refills of this medication diclofenac sodium 75 mg tablet,delayed release RxNorm: 292715 1 Tablet(s) PO BID 10/21/19 19 2018 Inactive This refill negates all other refills of this medication hydrochlorothiazide 12.5 mg tablet RxNorm: 235700 1 Tablet(s) PO QAM 10/21/19 19 2018 Inactive metoprolol succinate ER 50 mg tablet,extended release 24 hr RxNorm: 571650 1 Tablet(s) PO daily 10/21/192018 Inactive This refill negates all other refills of this medication levothyroxine 50 mcg tablet RxNorm: 941401 1 Tablet(s) PO daily 10/21/192018 Inactive This refill negates all other refills of this medication cetirizine 10 mg tablet RxNorm: 5516905 1 Tablet(s) PO daily 10/21/192018 Inactive This refill negates all other refills of this medication. Please do not auto refill Flintstones Complete (iron) 18 mg iron chewable tablet RxNorm: 1 Tablet(s) PO daily 10/21/19 19 2018 Inactive This refill negates all other refills of this medication buspirone 7.5 mg tablet RxNorm: 908973 1 Tablet(s) PO BID 10/12/19 19 2018 Inactive cetirizine 10 mg tablet RxNorm: 6625202 1 Tablet(s) PO daily 09/28/20 18 2018 Inactive Guaiasorb DM 10 mg-100 mg/5 mL oral liquid RxNorm: 745318 10 Milliliter(s) PO As needed every 4 hr 09/24/20 18 2018 Inactive Vicks Vaporub 4.7 %-1.2 %-2.6 % topical ointment RxNorm: 7687310 1 Application TOP TID 09/24/20 18 2018 Inactive levmetamfetamine 50 mg nasal inhaler RxNorm: 1 Unit(s) NASAL Q3-4H 09/24/20 18 2017 Inactive sertraline 50 mg tablet RxNorm: 442825 1 Tablet(s) PO daily 09/09/20 18 2018 Inactive Please note dose trazodone 50 mg tablet RxNorm: 891415 1 Tablet(s) PO QHS 09/06/20 18 2018 Inactive sertraline 50 mg tablet RxNorm: 623333 1 Tablet(s) PO daily 09/06/20 18 2017 Inactive amoxicillin 500 mg tablet RxNorm: 639061 1 Tablet(s) PO Q12H 08/31/20 18 2017 Inactive albuterol sulfate 2.5 mg/3 mL (0.083 %) solution for nebulization RxNorm: 910882 1 Vial INH QID 08/10/20 18 2018 Inactive 60/box. Please do not fill early. Please do not auto refill. Prozac 10 mg capsule RxNorm: 605093 1 Capsule(s) PO daily 08/09/20 18 2017 Inactive buspirone 7.5 mg tablet RxNorm: 690322 1 Tablet(s) PO BID 08/09/20 18 2018 Inactive gabapentin 300 mg capsule RxNorm: 192847 1 Capsule(s) PO TID as needed 08/01/20 18 2018 Inactive hydrochlorothiazide 12.5 mg tablet RxNorm: 395167 1 Tablet(s) PO QAM 08/01/20 18 2018 Inactive ranitidine 150 mg tablet RxNorm: 963117 1 Tablet(s) PO BID 08/01/20 18 2018 Inactive Macrobid 100 mg capsule RxNorm: 454287 1 Capsule(s) PO Q12H 06/21/20 18 2017 Inactive Singulair 10 mg tablet RxNorm: 109119 1 Tablet(s) PO daily 06/14/20 18 2018 Inactive Ventolin HFA 90 mcg/actuation aerosol inhaler RxNorm: 4605586 2 Puff(s) INH QID 06/14/20 18 2018 Inactive Singulair 10 mg tablet RxNorm: 782689 1 Tablet(s) PO daily 06/14/20 18 2017 Inactive buspirone 7.5 mg tablet RxNorm: 624788 1 Tablet(s) PO BID 06/14/20 18 2017 Inactive Prozac 10 mg capsule RxNorm: 897335 1 Capsule(s) PO daily 06/14/20 18 2017 Inactive Neilmed Pediatric Sinus Rinse Refill packet RxNorm: 1 Unit Dose NASAL PRN 05/31/20 18 2021 Inactive diclofenac sodium 75 mg tablet,delayed release RxNorm: 035345 1 Tablet(s) PO BID 05/31/20 18 2017 Inactive lisinopril 2.5 mg tablet RxNorm: 251353 1 Tablet(s) PO daily 05/31/20 18 2017 Inactive metoprolol succinate ER 50 mg tablet,extended release 24 hr RxNorm: 664376 1 Tablet(s) PO daily 05/31/20 18 2017 Inactive levothyroxine 50 mcg tablet RxNorm: 260196 1 Tablet(s) PO daily 05/31/20 18 2017 Inactive TRUEplus Lancets 30 gauge RxNorm: 1 Lancets Miscellaneous QAM 05/31/20 18 2017 Inactive 100/box Ventolin HFA 90 mcg/actuation aerosol inhaler RxNorm: 806983 2 Puff(s) INH QID 05/31/20 18 2017 Inactive Aleve 220 mg capsule RxNorm: 3789995 1 Capsule(s) PO BID 05/31/20 18 2018 Inactive ranitidine 150 mg tablet RxNorm: 534073 1 Tablet(s) PO BID 05/31/20 18 2017 Inactive gabapentin 300 mg capsule RxNorm: 332752 1 Capsule(s) PO TID as needed 05/31/20 18 2017 Inactive atorvastatin 20 mg tablet RxNorm: 586260 1 Tablet(s) PO QHS 05/31/20 18 2017 Inactive True Metrix Glucose Test Strip RxNorm: 1 Test Strips [facility] QAM 05/31/20 18 2017 Inactive 50/container Calcium 600-D3 Plus 600 mg calcium-800 unit-50 mg tablet RxNorm: 1 Tablet(s) PO daily take an additonal tablet for itching. 05/31/20 18 2017 Inactive hydrochlorothiazide 12.5 mg tablet RxNorm: 214100 1 Tablet(s) PO QAM 05/31/20 18 2017 Inactive Flintstones Complete (iron) 18 mg iron chewable tablet RxNorm: 1 Tablet(s) PO daily 05/31/20 18 2017 Inactive d-mannose oral powder RxNorm: PO 18 2021 Inactive True Metrix Glucose Meter RxNorm: miscellaneous 08/17/20 19 2018 Inactive sertraline 50 mg tablet RxNorm: 991980 1 Tablet(s) PO daily 11/28/19 20 2019 Inactive loperamide 2 mg tablet RxNorm: 376362 oral 09/29/20 19 2018 Inactive Symbicort 160 mcg-4.5 mcg/actuation HFA aerosol inhaler RxNorm: 6630873 2 Puff(s) INH BID 08/17/20 19 2018 Inactive Medication Administered No Medication Administered data Procedures Procedure Codes Date Urinalysis, dip stick CPT-4: 12977 09/24/2020 Patient Health Questionnaire CPT-4: DPHQ Electrocardiogram CPT-4: 27892 05/14/2020 Tobacco Assessment/Screening CPT-4: TCA Fall Risk Assessment SNOMED CT: 24723332 4 CPT-4: DFRA01/01/2020Functional AssessmentCPT-4: DFA01/01/2020[place] Fany AssessmentCPT-4: DSWA11/28/2019Patient Health QuestionnaireCPT-4: DPHQ11/28/2019 [employer] Fany AssessmentCPT-4: DSWA10/17/2019HypertensionCPT-4: HTN10/17/[address]: 534930430 CPT-4: DFRA09/19/2019Functional AssessmentCPT-4: DFA111/20/2018Urinalysis, dip stickCPT-4: 670909306/21/2019Tobacco Assessment/ScreeningCPT-4: TCA05/24/2019 Patient Health QuestionnaireCPT-4: DPHQ05/24/2019AHA/REBECCA Classification AssessmentCPT-4: DAHA04/25/2019Controlled Substance ReportCPT-4: CTRSU04/25/2019 Urinalysis, dip stickCPT-4: 948186703/28/2019Urinalysis, dip stickCPT-4: 20094 03/28/20199364V1D-AigqthsjvkubuuxVLM-5: 61475SnvvtdrH2T-RebqnyogjgirzjzXST-8: 48158 XhebmqiD7C-GmuerwyflautjufTXC-7: 84206IlalbidS5S-AccafdigkdwveulZPV-1: 80160 YbgfxhwK9A-MwyephhmrcosllhONM-9: 53139JhrlbgnXzucobrvoa ReferralSNOMED CT: 592738115 CPT-4: L06Qtikflb Reason For Visit No Reason For Visit data Plan of Care Planned Activity Notes Codes Status Date Patient Education: Patient Medication Summary Kziobfytn59/30/2020Appointment: Anna Culver WPtel: [address] [place], [place] [id number]/25/2019Appointment: Anna Culver WPtel: [address] [place], [place] [phone] [id number]/Appointment: Anna Culver WPtel: [phone] [place] [address] [id number]: Anna Culver WPtel: [phone] [place] [address] [id number]: Anna Culver WPtel: [phone] [place] [address] USETV10/03/2020Appointment: Gianna Birmingham [facility]: [facility] [address] [id number] SLXWXY2807/02/2020Appointment: Anna Culver WPtel: [phone] [place] [address] [id number]: Anna Culver WPtel: [address] [place] [address] [id number]/09/2020Appointment: Anna Culver WPtel: [phone] [place] [address] [id number]: Anna Culver WPtel: [phone] [place] [address] [id number]/Appointment: Anna Culver WPtel: [phone] [place] [address] [id number]/Appointment: Anna Culver WPtel: [phone] [place] [address] [id number]/Appointment: Anna Culver WPtel: [phone] [place] [address] [id number]/Appointment: Anna Culver WPtel: [phone] [place], [place] [phone] [id number]: Anna Culver WPtel: [address] [place] [address] [id number]: Anna Culver WPtel: [address] [place] [address] [place] [address] [id number]: Sudha Hernadez WPtel: [address] [facility] [address] [id number]: Sudha Hernadez WPtel: [address] [facility] [id number]: Charlene Oropeza WPtel: [address] [facility] [address] [id number]: Enedelia [id number]: Charlene Oropeza WPtel: [address] [facility] [address] [id number]: Jimmyupricht, Rasta WPtel: [address] [facility] [address] [id number]: Haupricht, Rasta WPtel: [address] [facility] [address] [id number]: Haupricht, Rasta WPtel: [address] [facility] [address] [id number]: Javy Rasta WPtel: [address] [facility] [address] [id number]: Pending Gynecology Referral InformationReferral ProcessedReferral: Pending Pulmonology Referral InformationReferralProcessed Referral: Pending Psychiatry Referral InformationReferralInitiatedReferral: Pending Respiratory Services Referral InformationReferralInitiatedReferral: Pending Ophthalmology Referral InformationReferralInitiatedReferral: [facility] WPtel: [address] [facility] [address] [facility] USWriter placed a call out to the patient to notify her that it has been recommended that she be seenby a urologist. Patient agreed to be seen, does not have a provider of choice and no transportationissues. Passenger Service Representative faxed referral and clinical notes to [facility] in [place], [place] near the patient's home. Patient to [...] seen and prefers a provider in the [place] or [place] area. Passenger Service Representative placed a call out to everyone listed in the area and the only location that was able to accept the patient's insurance was [address] [address] and spoke with Maylin. Maylin asked that the patient's referral, face sheet and visit notes be faxed to . Passenger Service Representative faxed over requested documents. Patient appointment confirmation letter generated and mailed to her home address. Patient to call to schedule an appointment.ProcessedReferral: [facility] WPtel: [address] [facility] [address] [place], [place] [id number] USPatient notified that it has been advised that she be seen by Neurology. Patient agreed to be seen and prefers to be seen by a provider in the [place], [place] area. Patient denies any concerns with transportation, and prefers to schedule her own appointment. Passenger Service Representative placed a call out to [facility] and spoke with Neeraj [...]
--- OUTSIDE RECORDS SUMMARY | 2023-12-07 02:13 | XMS_ITS | CCD ---
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 Staffing Administrator Name Role Phone Palomo KING, Anna Primary Care Provider Unav ailable Unavailable Chronic Care Management Unavaila ble Summary Purpose DataExchange Insurance Providers Payer name Policy type / Coverage type Covered alliance party ID Effective Begin Date Effective End Date [employer] [facility] [id number] Unknown Unknown Family history Mother Diagnosis Age [...] 05/31/2018 Education level Unknown Some High School 10th05/31/20188075KkfjqhstggOzbciciFomlmvmwzf60/29/2018Tobacco historySNOMED CT: 842035002Ysv never smoked or chewed vbdnexv4905/31/2018Alcohol historySNOMED CT: 853168845Pyduv drinks vceavte6105/31/2018Has the patient ever used illegal drugs? UnknownHas never used illegal drugs05/31/2018DNR Order/ Advanced Directive UnknownFull Code05/31/2018 Allergies, Adverse Reactions, Alerts Substance Reaction Codes Entered Date Inactivated Date Status *No known food allergies Fhhymrv4409/06/2018No Inactive DateActiveMethylprednisolonehivesRxNorm: 6902 09/06/2018No Inactive DateActive Problems [...] ICD-9: 356.908ActivePatient Not SeenICD-10: UXZ.01 ICD-9: XZ0.107ActiveOther long term care administrator (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ICD-10: Z79.899 ICD-9: V58.6907ActiveChest pain, [...] Fill Instructions gabapentin 300 mg capsule RxNorm: 381277 TAKE 1 CAPSULE BY MOUTH THREE TIMES DAILY 07/11/20 20 2020 Inactive cetirizine 10 mg tablet RxNorm: 3382698 TAKE (1) TABLET BY MOUTH DAILY 07/11/20 20 2020 Inactive metformin 500 mg tablet RxNorm: 601420 1 Tablet(s) Oral two times a day 07/08/20 20 2019 Inactive loperamide 2 mg tablet RxNorm: 591161 1 Tablet(s) Oral as needed take one tablet after each loose stool, maximum of 8 tablets in 24 hours 06/24/202021 Inactive Sudafed 12 Hour 120 mg tablet,extended release RxNorm: 3460349 TAKE 1 TABLET BY MOUTH EVERY 12 HOURS NEEDED 06/11/20 20 2019 Inactive hydrochlorothiazide 25 mg tablet RxNorm: 811290 TAKE (1) TABLET BY MOUTH EVERY DAY 06/11/202019 Inactive omeprazole 20 mg capsule,delayed release RxNorm: 739823 TAKE 1 CAPSULE BY MOUTH EVERY DAY 05/14/20 20 2020 Inactive metformin 500 mg tablet RxNorm: 449711 1 Tablet(s) Oral every day 05/12/202019 Inactive True Metrix Glucose Test Strip RxNorm: 1 Test Strips Miscellaneous two times a day as needed 04/17/20 No Stop Date Active metformin 500 mg tablet RxNorm: 006588 1 Tablet(s) Oral every day 04/17/20 20 2019 Inactive diclofenac sodium 75 mg tablet,delayed release RxNorm: 308878 1 Tablet(s) PO BID 04/14/20 20 2021 Inactive This refill negates all other refills of this medication Sudafed 12 Hour 120 mg tablet,extended release RxNorm: 3918091 TAKE 1 TABLET BY MOUTH EVERY 12 HOURS NEEDED 03/14/20 20 2019 Inactive True Metrix Glucose Test Strip RxNorm: 1 Test Strips Miscellaneous every morning 03/13/20 20 2019 Inactive 100/container True Metrix Glucose Test Strip RxNorm: 1 Test Strips Miscellaneous QAM 02/22/20 20 2019 Inactive 100/container loperamide 2 mg tablet RxNorm: 298241 1 Tablet(s) Oral as needed take one tablet after each loose stool, maximum of 8 tablets in 24 hours 02/22/20 20 2019 Inactive levothyroxine 50 mcg tablet RxNorm: 140618 1 Tablet(s) PO daily 01/17/20 20 2020 Inactive cetirizine 10 mg tablet RxNorm: 7572647 1 Tablet(s) PO daily 01/17/20 20 2019 Inactive loperamide 2 mg tablet RxNorm: 137971 1 Tablet(s) Oral as needed take one tablet after each loose stool, maximum of 8 tablets in 24 hours 01/17/20 20 2019 Inactive quetiapine 100 mg tablet RxNorm: 437882 1 Tablet(s) Oral every night at bedtime 01/17/20 20 2019 Inactive gabapentin 300 mg capsule RxNorm: 042432 1 Capsule(s) PO TID 01/17/20 20 2019 Inactive lisinopril 2.5 mg tablet RxNorm: 577130 1 Tablet(s) PO daily 01/15/20 20 2020 Inactive Singulair 10 mg tablet RxNorm: 135427 1 Tablet(s) PO daily 01/15/20 20 2020 Inactive levothyroxine 50 mcg tablet RxNorm: 824690 1 Tablet(s) PO daily 01/15/20 20 2019 Inactive gabapentin 300 mg capsule RxNorm: 618661 1 Capsule(s) PO TID 01/15/20 20 2019 Inactive cetirizine 10 mg tablet RxNorm: 6924537 1 Tablet(s) PO daily 01/15/20 20 2019 Inactive gentamicin 0.3 % eye drops RxNorm: 772092 1 Drop(s) ophthalmic (eye) four times a day 12/29/19 20 2019 Inactive gentamicin 0.3 % eye drops RxNorm: 950537 1 Drop(s) ophthalmic (eye) four times a day 12/29/19 20 2019 Inactive gentamicin 0.3 % eye drops RxNorm: 634828 1 Drop(s) ophthalmic (eye) four times a day 12/29/19 20 2019 Inactive hydrochlorothiazide 25 mg tablet RxNorm: 082165 1 Tablet(s) Oral every day 12/21/19 20 2019 Inactive Sudafed 12 Hour 120 mg tablet,extended release RxNorm: 2283922 TAKE (1) TABLET BY MOUTH EVERY 12 HOURS NEEDED 12/21/19 20 2019 Inactive loperamide 2 mg tablet RxNorm: 791365 1 Tablet(s) Oral as needed take one tablet after each loose stool, maximum of 8 tablets in 24 hours 12/11/19 20 2019 Inactive loperamide 2 mg tablet RxNorm: 525120 1 Tablet(s) Oral as needed take one tablet after each loose stool, maximum of 8 tablets in 24 hours 12/11/19 20 2019 Inactive atorvastatin 40 mg tablet RxNorm: 081119 1 Tablet(s) Oral every day 11/29/19 20 2020 Inactive quetiapine 100 mg tablet RxNorm: 974690 1 Tablet(s) Oral every night at bedtime 11/28/19 20 2019 Inactive sertraline 100 mg tablet RxNorm: 120441 1 Tablet(s) Oral 11/28/19 20 2019 Inactive omeprazole 20 mg capsule,delayed release RxNorm: 729512 1 Capsule(s) Oral every day 11/20/19 20 2019 Inactive amoxicillin 250 mg capsule RxNorm: 860087 1 Capsule(s) Oral three times a day 11/07/19 2019 Inactive multivitamin with iron-mineral tablet RxNorm: 1 Tablet(s) Oral every day 10/29/19 20 2021 Inactive cetirizine 10 mg tablet RxNorm: 4890903 1 Tablet(s) PO daily 10/20/19 20 2019 Inactive This refill negates all other refills of this medication. Please do not auto refill Singulair 10 mg tablet RxNorm: 386634 1 Tablet(s) PO daily 10/20/192019 Inactive This refill negates all other refills of this medication gabapentin 300 mg capsule RxNorm: 913679 1 Capsule(s) PO TID 10/20/192019 Inactive lisinopril 2.5 mg tablet RxNorm: 441731 1 Tablet(s) PO daily 10/20/19 20 2019 Inactive levothyroxine 50 mcg tablet RxNorm: 554633 1 Tablet(s) PO daily 10/20/192019 Inactive This refill negates all other refills of this medication fenugreek seed extract 500 mg capsule RxNorm: 1 Capsule(s) Oral three times a day 10/17/19 20 2021 Inactive hydrochlorothiazide 25 mg tablet RxNorm: 266955 1 Tablet(s) Oral every day 10/17/19 20 2019 Inactive Alcohol Prep Pads RxNorm: 748896 1 Patch TOP QAM 10/16/19 20 2020 Inactive loperamide 2 mg tablet RxNorm: 034134 1 Tablet(s) Oral as needed take one [...] 2019 Inactive hydrochlorothiazide 25 mg tablet RxNorm: 773161 1 Tablet(s) Oral every day 09/19/20 19 2019 Inactive Sudafed 12 Hour 120 mg tablet,extended release RxNorm: 6740649 1 Tablet(s) Oral every 12 hours as needed 09/11/20 19 2018 Inactive omeprazole 20 mg capsule,delayed release RxNorm: 236440 1 Capsule(s) Oral every day 09/07/20 19 2019 Inactive Sudafed 12 Hour 120 mg tablet,extended release RxNorm: 2060860 1 Tablet(s) Oral every 12 hours as needed 09/04/20 19 2018 Inactive pantoprazole 40 mg tablet,delayed release RxNorm: 806266 1 Tablet(s) Oral every day 08/24/202018 Inactive discontinue any other H2Blkr. and PPI albuterol sulfate 2.5 mg/3 mL (0.083 %) solution for nebulization RxNorm: 440585 1 Vial Inhalation every four hours as needed as needed for dyspnea 08/17/20 19 2019 Inactive 60/box. This refill negates all other refills of this medication. Please do not fill early. Please do not auto refill. Symbicort 160 mcg-4.5 mcg/actuation HFA aerosol inhaler RxNorm: 9922679 2 Puff(s) INH BID 08/17/20 19 No Stop Date Active Alcohol Prep Pads RxNorm: 025381 1 Patch TOP QAM 08/17/20 19 2019 Inactive Ventolin HFA 90 mcg/actuation aerosol inhaler RxNorm: 714898 2 Puff(s) INH QID 08/09/20 19 2019 Inactive Please do not fill early. Please do not auto refill. This refill negates all other refills of this medication True Metrix Glucose Test Strip RxNorm: 1 Test Strips Miscellaneous QAM 08/09/20 19 2019 Inactive 100/container atorvastatin 40 mg tablet RxNorm: 984255 1 Tablet(s) Oral every day 07/04/20 19 2019 Inactive levmetamfetamine 50 mg nasal inhaler RxNorm: 1 Unit(s) NASAL Q3-4H Do not use more than every 3 hours or 8 times/24hours 06/26/20 19 2021 Inactive Please do not auto refill. This refill negates all other refills of this medication buspirone 7.5 mg tablet RxNorm: 690331 1 Tablet(s) PO BID 06/26/20 19 2020 Inactive This refill negates all other refills of this medication hydrochlorothiazide 12.5 mg tablet RxNorm: 530467 1 Tablet(s) PO QAM 06/26/20 19 2019 Inactive Ventolin HFA 90 mcg/actuation aerosol inhaler RxNorm: 652733 2 Puff(s) INH QID 06/26/20 19 2018 Inactive Please do not fill early. Please do not auto refill. This refill negates all other refills of this medication Singulair 10 mg tablet RxNorm: 864067 1 Tablet(s) PO daily 06/26/20 19 2019 Inactive This refill negates all other refills of this medication cetirizine 10 mg tablet RxNorm: 7838840 1 Tablet(s) PO daily 06/26/20 19 2019 Inactive This refill negates all other refills of this medication. Please do not auto refill levothyroxine 50 mcg tablet RxNorm: 824797 1 Tablet(s) PO daily 06/26/20 19 2019 Inactive This refill negates all other refills of this medication diclofenac sodium 75 mg tablet,delayed release RxNorm: 071742 1 Tablet(s) PO BID 06/26/20 19 2019 Inactive This refill negates all other refills of this medication ranitidine 150 mg tablet RxNorm: 054845 1 Tablet(s) PO BID 06/26/20 19 2018 Inactive This refill negates all other refills of this medication Calcium 600-D3 Plus (mag-zinc) 600 mg calcium-800 unit-50 mg tablet RxNorm: 1 Tablet(s) PO daily take an additonal tablet for itching. 06/26/20 19 2018 Inactive This refill negates all other refills of this medication albuterol sulfate 2.5 mg/3 mL (0.083 %) solution for nebulization RxNorm: 338068 1 Vial INH QID 06/26/20 19 2018 Inactive 60/box. This refill negates all other refills of this medication. Please do not fill early. Please do not auto refill. lisinopril 2.5 mg tablet RxNorm: 775092 1 Tablet(s) PO daily 06/21/20 19 2019 Inactive gabapentin 300 mg capsule RxNorm: 612729 1 Capsule(s) PO TID 06/21/20 19 2019 Inactive atorvastatin 20 mg tablet RxNorm: 390632 1 Tablet(s) PO QHS 06/07/202018 Inactive This refill negates all other refills of this medication TRUEplus Lancets 30 gauge RxNorm: 1 Lancets Miscellaneous QAM 05/29/20 19 2018 Inactive 100/box gabapentin 300 mg capsule RxNorm: 441033 1 Capsule(s) PO TID 05/03/20 19 2018 Inactive Flintsmaury Complete (iron) 18 mg iron chewable tablet RxNorm: 1 Tablet(s) PO daily 04/04/20 19 2021 Inactive This refill negates all other refills of this medication gabapentin 300 mg capsule RxNorm: 985597 1 Capsule(s) PO TID as needed 02/01/20 19 2018 Inactive True Metrix Glucose Test Strip RxNorm: 1 Test Strips Miscellaneous QA 02/01/20 19 2018 Inactive 100/container Alcohol Prep Pads RxNorm: 194724 1 Patch TOP QAM 02/01/20 19 2018 Inactive TRUEplus Lancets 30 gauge RxNorm: 1 Lancets Miscellaneous QAM 02/01/20 19 2018 Inactive 100/box lisinopril 2.5 mg tablet RxNorm: 998134 1 Tablet(s) PO daily 12/28/19 19 2018 Inactive ranitidine 150 mg tablet RxNorm: 026722 1 Tablet(s) PO BID 10/21/19 19 2018 Inactive This refill negates all other refills of this medication albuterol sulfate 2.5 mg/3 mL (0.083 %) solution for nebulization RxNorm: 305869 1 Vial INH QID 10/21/19 19 2018 [...] this medication gabapentin 300 mg capsule RxNorm: 940512 1 Capsule(s) PO TID as needed 10/21/19 19 2018 Inactive atorvastatin 20 mg tablet RxNorm: 398988 1 Tablet(s) PO QHS 10/21/192018 Inactive This refill negates all other refills of this medication trazodone 50 mg tablet RxNorm: 569049 1 Tablet(s) PO QHS 10/21/192018 Inactive This refill negates all other refills of this medication Ventolin HFA 90 mcg/actuation aerosol inhaler RxNorm: 353908 2 Puff(s) INH QID 10/21/192018 Inactive Please do not fill early. Please do not auto refill. This refill negates all other refills of this medication Calcium 600-D3 Plus 600 mg calcium-800 unit-50 mg tablet RxNorm: 1 Tablet(s) PO daily take an additonal tablet for itching. 10/21/192018 Inactive This refill negates all other refills of this medication Singulair 10 mg tablet RxNorm: 544201 1 Tablet(s) PO daily 10/21/192018 Inactive This refill negates all other refills of this medication buspirone 7.5 mg tablet RxNorm: 480179 1 Tablet(s) PO BID 10/21/192018 Inactive This refill negates all other refills of this medication diclofenac sodium 75 mg tablet,delayed release RxNorm: 634901 1 Tablet(s) PO BID 10/21/19 19 2018 Inactive This refill negates all other refills of this medication hydrochlorothiazide 12.5 mg tablet RxNorm: 146052 1 Tablet(s) PO QAM 10/21/19 19 2018 Inactive metoprolol succinate ER 50 mg tablet,extended release 24 hr RxNorm: 966401 1 Tablet(s) PO daily 10/21/19 19 2018 Inactive This refill negates all other refills of this medication levothyroxine 50 mcg tablet RxNorm: 280071 1 Tablet(s) PO daily 10/21/19 19 2018 Inactive This refill negates all other refills of this medication cetirizine 10 mg tablet RxNorm: 6785307 1 Tablet(s) PO daily 10/21/19 19 2018 Inactive This refill negates all other refills of this medication. Please do not auto refill Flintstones Complete (iron) 18 mg iron chewable tablet RxNorm: 1 Tablet(s) PO daily 10/21/19 19 2018 Inactive This refill negates all other refills of this medication buspirone 7.5 mg tablet RxNorm: 815978 1 Tablet(s) PO BID 10/12/19 19 2018 Inactive cetirizine 10 mg tablet RxNorm: 2012879 1 Tablet(s) PO daily 09/28/20 18 2018 Inactive Guaiasorb DM 10 mg-100 mg/5 mL oral liquid RxNorm: 301836 10 Milliliter(s) PO As needed every 4 hr 09/24/20 18 2018 Inactive Vicks Vaporub 4.7 %-1.2 %-2.6 % topical ointment RxNorm: 5299536 1 Application TOP TID 09/24/20 18 2018 Inactive levmetamfetamine 50 mg nasal inhaler RxNorm: 1 Unit(s) NASAL Q3-4H 09/24/20 18 2017 Inactive sertraline 50 mg tablet RxNorm: 004040 1 Tablet(s) PO daily 09/09/20 18 2018 Inactive Please note dose trazodone 50 mg tablet RxNorm: 319035 1 Tablet(s) PO QHS 09/06/20 18 2018 Inactive sertraline 50 mg tablet RxNorm: 772619 1 Tablet(s) PO daily 09/06/20 18 2017 Inactive amoxicillin 500 mg tablet RxNorm: 621265 1 Tablet(s) PO Q12H 08/31/20 18 2017 Inactive albuterol sulfate 2.5 mg/3 mL (0.083 %) solution for nebulization RxNorm: 787083 1 Vial INH QID 08/10/20 18 2018 Inactive 60/box. Please do not fill early. Please do not auto refill. Prozac 10 mg capsule RxNorm: 750482 1 Capsule(s) PO daily 08/09/20 18 2017 Inactive buspirone 7.5 mg tablet RxNorm: 709060 1 Tablet(s) PO BID 08/09/20 18 2018 Inactive gabapentin 300 mg capsule RxNorm: 670316 1 Capsule(s) PO TID as needed 08/01/20 18 2018 Inactive hydrochlorothiazide 12.5 mg tablet RxNorm: 905418 1 Tablet(s) PO QAM 08/01/20 18 2018 Inactive ranitidine 150 mg tablet RxNorm: 426679 1 Tablet(s) PO BID 08/01/20 18 2018 Inactive Macrobid 100 mg capsule RxNorm: 438865 1 Capsule(s) PO Q12H 06/21/20 18 2017 Inactive Singulair 10 mg tablet RxNorm: 540464 1 Tablet(s) PO daily 06/14/20 18 2018 Inactive Ventolin HFA 90 mcg/actuation aerosol inhaler RxNorm: 6427897 2 Puff(s) INH QID 06/14/20 18 2018 Inactive Singulair 10 mg tablet RxNorm: 866490 1 Tablet(s) PO daily 06/14/20 18 2017 Inactive buspirone 7.5 mg tablet RxNorm: 919034 1 Tablet(s) PO BID 06/14/20 18 2017 Inactive Prozac 10 mg capsule RxNorm: 528596 1 Capsule(s) PO daily 06/14/20 18 2017 Inactive Neilmed Pediatric Sinus Rinse Refill packet RxNorm: 1 Unit Dose NASAL PRN 05/31/20 18 2021 Inactive diclofenac sodium 75 mg tablet,delayed release RxNorm: 365781 1 Tablet(s) PO BID 05/31/20 18 2017 Inactive lisinopril 2.5 mg tablet RxNorm: 787156 1 Tablet(s) PO daily 05/31/20 18 2017 Inactive metoprolol succinate ER 50 mg tablet,extended release 24 hr RxNorm: 532389 1 Tablet(s) PO daily 05/31/20 18 2017 Inactive levothyroxine 50 mcg tablet RxNorm: 778337 1 Tablet(s) PO daily 05/31/20 18 2017 Inactive TRUEplus Lancets 30 gauge RxNorm: 1 Lancets Miscellaneous QAM 05/31/20 18 2017 Inactive 100/box Ventolin HFA 90 mcg/actuation aerosol inhaler RxNorm: 473000 2 Puff(s) INH QID 05/31/20 18 2017 Inactive Aleve 220 mg capsule RxNorm: 6395198 1 Capsule(s) PO BID 05/31/20 18 2018 Inactive ranitidine 150 mg tablet RxNorm: 052647 1 Tablet(s) PO BID 05/31/20 18 2017 Inactive gabapentin 300 mg capsule RxNorm: 311414 1 Capsule(s) PO TID as needed 05/31/20 18 2017 Inactive atorvastatin 20 mg tablet RxNorm: 885913 1 Tablet(s) PO QHS 05/31/20 18 2017 Inactive True Metrix Glucose Test Strip RxNorm: 1 Test Strips Miscellaneous QAM 05/31/20 18 2017 Inactive 50/container Calcium 600-D3 Plus 600 mg calcium-800 unit-50 mg tablet RxNorm: 1 Tablet(s) PO daily take an additonal tablet for itching. 05/31/20 18 2017 Inactive hydrochlorothiazide 12.5 mg tablet RxNorm: 700409 1 Tablet(s) PO QAM 05/31/20 18 2017 Inactive Flintstones Complete (iron) 18 mg iron chewable tablet RxNorm: 1 Tablet(s) PO daily 05/31/20 18 2017 Inactive d-mannose oral powder RxNorm: PO 18 2021 Inactive True Metrix Glucose Meter RxNorm: miscellaneous 08/17/20 19 2018 Inactive sertraline 50 mg tablet RxNorm: 391714 1 Tablet(s) PO daily 11/28/19 20 2019 Inactive loperamide 2 mg tablet RxNorm: 179627 oral 09/29/20 19 2018 Inactive Symbicort 160 mcg-4.5 mcg/actuation HFA aerosol inhaler RxNorm: 9465018 2 Puff(s) INH BID 08/17/202018 Inactive Medication Administered No Medication Administered data Procedures Procedure Codes Date Electrocardiogram CPT-4: 30304 05/14/2020 Tobacco Assessment/Screening CPT-4: TCA Fall Risk Assessment [facility] CT: 19770988 4 CPT-4: DFRA01/01/2020Functional AssessmentCPT-4: DFA01/01/2020[facility] Fany AssessmentCPT-4: DSWA11/28/2019Patient Health QuestionnaireCPT-4: DPHQ11/28/2019 [facility] AssessmentCPT-4: DSWA10/17/2019HypertensionCPT-4: HTN10/17/2019 [facility] CPT-4: DFRA09/19/2019Functional AssessmentCPT-4: DFA111/20/2018Urinalysis, dip stickCPT-4: 963222606/21/2019Tobacco Assessment/ScreeningCPT-4: TCA05/24/2019 Patient Health QuestionnaireCPT-4: DPHQ05/24/2019AHA/REBECCA Classification AssessmentCPT-4: DAHA04/25/2019Controlled Substance ReportCPT-4: CTRSU04/25/2019 Urinalysis, dip stickCPT-4: 756318603/28/2019Urinalysis, dip stickCPT-4: 73478 03/28/20195537G7B-KjjonojxfbjgboqMDJ-2: 90463XencgisJ6O-WxilivkpyvkjkppYKY-9: 34676 GdivsmbH9I-WrowrjarjcesejcCXY-3: 09660CtyphciD3G-WetavwxddgmoyajUAG-2: [address]: 061458192 CPT-4: N56Noreebt Reason For Visit No Reason For Visit data Plan of Care Planned Activity Notes Codes Status Date Referral: Pending Gynecology Referral Informatio n Referral ProcessedReferral: Pending Pulmonology Referral InformationReferralProcessed Referral: Pending Psychiatry Referral InformationReferralInitiatedReferral: Pending Respiratory Services Referral InformationReferralInitiatedReferral: Pending Ophthalmology Referral InformationReferralInitiatedReferral: [facility] WPtel: [address] [place] [address] [address] [address] USWriter placed a call out to the patient to notify her that it has been recommended that she be seenby a urologist. Patient agreed to be seen, does not have a provider of choice and no transportationissues. Solar Energy Technician faxed referral and clinical notes to [facility] in [place], [place] near the patient's home. Patient to [...] seen and prefers a provider in the [place] or [facility]. Solar Energy Technician placed a call out to everyone listed in the area and the only location that was able to accept the patient's insurance was [place] [address] [place] [address] and spoke with Maylin. Maylin asked that the patient's referral, face sheet and visit notes be faxed to . Solar Energy Technician faxed over requested documents. Patient appointment confirmation letter generated and mailed to her home address. Patient to call to schedule an appointment.ProcessedReferral: [facility] WPtel: [address] [facility] [address] [id number] USPatient notified that it has been advised that she be seen by Neurology. Patient agreed to be seen and prefers to be seen by a provider in the [place], [place] area. Patient denies any concerns with transportation, and prefers to schedule her own appointment. Solar Energy Technician placed a call out to [facility] and spoke with Neeraj P: who confirmed that their office is able to acceptnew patients and the patient's insurance. After confirming the providers fax number, aligner typewriter faxed over the patient's referral, and [...]
--- OUTSIDE RECORDS SUMMARY | 2023-12-07 02:14 | XMS_ITS | CCD ---
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 Lead Medical Technologist Name Role Phone Palomo PRODUCTION MATERIAL HANDLER, Anna Primary Care Provider Unav ailable Unavailable Chronic Care Management Unavaila ble Summary Purpose DataExchange Insurance Providers Payer name Policy type / Coverage type Covered republican ID Effective Begin Date Effective End Date [facility] [id number] Unknown Unknown Family history Mother Diagnosis Age [...] 05/31/2018 Education level Unknown Some High School 10th05/31/20180861WxiomvnzzeMghatgwBojrfelrlo34/29/2018Tobacco historySNOMED CT: 116922805Oic never smoked or chewed ahcjozu7305/31/2018Alcohol historySNOMED CT: 844506399Wygjq drinks dygarlz9405/31/2018Has the patient ever used illegal drugs? UnknownHas never used illegal drugs05/31/2018DNR Order/ Advanced Directive UnknownFull Code05/31/2018 Allergies, Adverse Reactions, Alerts Substance Reaction Codes Entered Date Inactivated Date Status *No known food allergies Sunumgj0209/06/2018No Inactive DateActiveMethylprednisolonehivesRxNorm: 6902 09/06/2018No Inactive DateActive Problems Condition Codes Effective Dates Condition St atus Essential (primary) hypertension ICD-10: I10 ICD-9: 401.901ActiveGERD (gastroesophageal reflux disease)ICD-10: K21.9 ICD-9: 530.8112ActiveHistory of surgery on right wristICD-10: Z98.890 ICD-9: V45.8901/1ActiveSuperficial burn of multiple sites of right hand, subsequent encounterICD-10: T23.191D ICD-9: V58.8902/1ActiveType 2 diabetes mellitus with peripheral neuropathy ICD-10: E11.42 ICD-9: 250.6002ActiveAdjustment disorder with mixed anxiety and depressed moodICD-10: F43.23 ICD-9: 309.2812ActiveChronic kidney disease, stage 2 (mild)ICD-10: N18.2 ICD-9: 585.201/1ActiveRight wrist painICD-10: M25.531 ICD-9: 719.4308ActiveUrinary tract infectionICD-10: N39.0 ICD-9: 599.012/ActiveAbnormal urine findingICD-10: R82.90 ICD-9: 791.912ActiveHypertensive heart disease with heart failureICD-10: I11.0 ICD-9: [...] incontinenceICD-10: R15.9 ICD-9: 787.6003/ActiveMixed incontinenceICD-10: N39.46 ICD-9: 788.3308/ActiveDiarrheaICD-10: R19.7 ICD-9: 787.9112ActiveType 2 diabetes mellitus without complicationsICD- 10: E11.9 ICD-9: 250.0001/10/2018ActiveSinusitisICD-10: J32.9 ICD-9: 473.902ActiveAsthmaICD-10: J45.909 ICD-9: 493.9011ActiveAcute upper respiratory infection, unspecifiedICD- 10: J06.9 ICD-9: 465.912/12/2018ActiveApnea, not elsewhere classifiedICD-10: R06.81 ICD-9: 786.0305ActiveEncounter for immunizationICD-10: Z23 ICD-9: V03.907/ActivePatient Not SeenICD-10: UXZ.01 ICD-9: XZ0.107ActiveOther mcc (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ICD-10: Z79.899 ICD-9: V58.6907/ActiveChest [...] Fill Instructions atorvastatin 40 mg tablet RxNorm: 755333 1 Tablet(s) Oral every day 12/06/19 21 2020 Inactive omeprazole 20 mg capsule,delayed release RxNorm: 029193 1 Capsule(s) Oral every evening 11/24/19 21 2020 Inactive famotidine 10 mg tablet RxNorm: 982780 1 Tablet(s) Oral every morning 11/24/19 21 2020 Inactive Alcohol Prep Pads RxNorm: 294647 USE EACH MORNING 10/14/19 21 2020 Inactive omeprazole 20 mg capsule,delayed release RxNorm: 963706 1 Capsule(s) Oral two times a day 10/13/19 21 2021 Inactive omeprazole 20 mg capsule,delayed release RxNorm: 940167 TAKE 1 CAPSULE BY MOUTH EVERY DAY 10/08/19 2021 Inactive Macrobid 100 mg capsule RxNorm: 084014 1 Capsule(s) Oral every 12 hours with food 10/01/202020 Inactive omeprazole 20 mg capsule,delayed release RxNorm: 642456 1 Capsule(s) Oral two times a day 09/24/202021 Inactive metformin 1,000 mg tablet RxNorm: 677245 1 Tablet(s) Oral two times a day 08/19/202020 Inactive start on September 11, 2020 metformin 500 mg tablet RxNorm: 714078 1 Tablet(s) Oral two times a day take with 500mg to equal 1000mg 08/19/202019 Inactive gabapentin 300 mg capsule RxNorm: 115513 TAKE 1 CAPSULE BY MOUTH THREE TIMES DAILY 07/11/20 20 2020 Inactive cetirizine 10 mg tablet RxNorm: 3522836 TAKE (1) TABLET BY MOUTH DAILY 07/11/202020 Inactive metformin 500 mg tablet RxNorm: 919794 1 Tablet(s) Oral two times a day 07/08/20 20 2019 Inactive loperamide 2 mg tablet RxNorm: 446987 1 Tablet(s) Oral as needed take one tablet after each loose stool, maximum of 8 tablets in 24 hours 06/24/202021 Inactive Sudafed 12 Hour 120 mg tablet,extended release RxNorm: 0387855 TAKE 1 TABLET BY MOUTH EVERY 12 HOURS NEEDED 06/11/20 20 2019 Inactive hydrochlorothiazide 25 mg tablet RxNorm: 816958 TAKE (1) TABLET BY MOUTH EVERY DAY 06/11/202019 Inactive omeprazole 20 mg capsule,delayed release RxNorm: 031160 TAKE 1 CAPSULE BY MOUTH EVERY DAY 05/14/202020 Inactive metformin 500 mg tablet RxNorm: 456786 1 Tablet(s) Oral every day 05/12/20 20 2019 Inactive True Metrix Glucose Test Strip RxNorm: 1 Test Strips Miscellaneous two times a day as needed 04/17/20 No Stop Date Active metformin 500 mg tablet RxNorm: 204364 1 Tablet(s) Oral every day 04/17/20 20 2019 Inactive diclofenac sodium 75 mg tablet,delayed release RxNorm: 882211 1 Tablet(s) PO BID 04/14/20 20 2021 Inactive This refill negates all other refills of this medication Sudafed 12 Hour 120 mg tablet,extended release RxNorm: 6912137 TAKE 1 TABLET BY MOUTH EVERY 12 HOURS NEEDED 03/14/20 20 2019 Inactive True Metrix Glucose Test Strip RxNorm: 1 Test Strips Miscellaneous every morning 03/13/20 20 2019 Inactive 100/container True Metrix Glucose Test Strip RxNorm: 1 Test Strips Miscellaneous QAM 02/22/20 20 2019 Inactive 100/container loperamide 2 mg tablet RxNorm: 141852 1 Tablet(s) Oral as needed take one tablet after each loose stool, maximum of 8 tablets in 24 hours 02/22/20 20 2019 Inactive levothyroxine 50 mcg tablet RxNorm: 047495 1 Tablet(s) PO daily 01/17/20 20 2020 Inactive cetirizine 10 mg tablet RxNorm: 0399880 1 Tablet(s) PO daily 01/17/20 20 2019 Inactive loperamide 2 mg tablet RxNorm: 533089 1 Tablet(s) Oral as needed take one tablet after each loose stool, maximum of 8 tablets in 24 hours 01/17/20 20 2019 Inactive quetiapine 100 mg tablet RxNorm: 207792 1 Tablet(s) Oral every night at bedtime 01/17/20 20 2019 Inactive gabapentin 300 mg capsule RxNorm: 785207 1 Capsule(s) PO TID 01/17/20 20 2019 Inactive lisinopril 2.5 mg tablet RxNorm: 298390 1 Tablet(s) PO daily 01/15/20 20 2020 Inactive Singulair 10 mg tablet RxNorm: 564143 1 Tablet(s) PO daily 01/15/20 20 2020 Inactive levothyroxine 50 mcg tablet RxNorm: 582995 1 Tablet(s) PO daily 01/15/20 20 2019 Inactive gabapentin 300 mg capsule RxNorm: 318751 1 Capsule(s) PO TID 01/15/20 20 2019 Inactive cetirizine 10 mg tablet RxNorm: 5670960 1 Tablet(s) PO daily 01/15/20 20 2019 Inactive gentamicin 0.3 % eye drops RxNorm: 446920 1 Drop(s) ophthalmic (eye) four times a day 12/29/19 20 2019 Inactive gentamicin 0.3 % eye drops RxNorm: 091671 1 Drop(s) ophthalmic (eye) four times a day 12/29/19 20 2019 Inactive gentamicin 0.3 % eye drops RxNorm: 106022 1 Drop(s) ophthalmic (eye) four times a day 12/29/19 20 2019 Inactive hydrochlorothiazide 25 mg tablet RxNorm: 473884 1 Tablet(s) Oral every day 12/21/19 20 2019 Inactive Sudafed 12 Hour 120 mg tablet,extended release RxNorm: 7482124 TAKE (1) TABLET BY MOUTH EVERY 12 HOURS NEEDED 12/21/19 20 2019 Inactive loperamide 2 mg tablet RxNorm: 687675 1 Tablet(s) Oral as needed take one tablet after each loose stool, maximum of 8 tablets in 24 hours 12/11/19 20 2019 Inactive loperamide 2 mg tablet RxNorm: 897144 1 Tablet(s) Oral as needed take one tablet after each loose stool, maximum of 8 tablets in 24 hours 12/11/19 20 2019 Inactive atorvastatin 40 mg tablet RxNorm: 235882 1 Tablet(s) Oral every day 11/29/19 20 2020 Inactive quetiapine 100 mg tablet RxNorm: 809915 1 Tablet(s) Oral every night at bedtime 11/28/19 20 2019 Inactive sertraline 100 mg tablet RxNorm: 618443 1 Tablet(s) Oral 11/28/19 20 2019 Inactive omeprazole 20 mg capsule,delayed release RxNorm: 893018 1 Capsule(s) Oral every day 11/20/19 20 2019 Inactive amoxicillin 250 mg capsule RxNorm: 280411 1 Capsule(s) Oral three times a day 11/07/19 20 2019 Inactive multivitamin with iron-mineral tablet RxNorm: 1 Tablet(s) Oral every day 10/29/19 20 2021 Inactive cetirizine 10 mg tablet RxNorm: 0337744 1 Tablet(s) PO daily 10/20/19 20 2019 Inactive This refill negates all other refills of this medication. Please do not auto refill Singulair 10 mg tablet RxNorm: 791775 1 Tablet(s) PO daily 10/20/19 20 2019 Inactive This refill negates all other refills of this medication gabapentin 300 mg capsule RxNorm: 097709 1 Capsule(s) PO TID 10/20/192019 Inactive lisinopril 2.5 mg tablet RxNorm: 559269 1 Tablet(s) PO daily 10/20/19 20 2019 Inactive levothyroxine 50 mcg tablet RxNorm: 524904 1 Tablet(s) PO daily 10/20/192019 Inactive This refill negates all other refills of this medication fenugreek seed extract 500 mg capsule RxNorm: 1 Capsule(s) Oral three times a day 10/17/19 20 2021 Inactive hydrochlorothiazide 25 mg tablet RxNorm: 963598 1 Tablet(s) Oral every day 10/17/19 20 2019 Inactive Alcohol Prep Pads RxNorm: 533837 1 Patch TOP QAM 10/16/19 20 2020 Inactive loperamide 2 mg tablet RxNorm: 165305 1 Tablet(s) Oral as needed take one [...] 2019 Inactive hydrochlorothiazide 25 mg tablet RxNorm: 939479 1 Tablet(s) Oral every day 09/19/20 19 2019 Inactive Sudafed 12 Hour 120 mg tablet,extended release RxNorm: 7106474 1 Tablet(s) Oral every 12 hours as needed 09/11/20 19 2018 Inactive omeprazole 20 mg capsule,delayed release RxNorm: 539220 1 Capsule(s) Oral every day 09/07/20 19 2019 Inactive Sudafed 12 Hour 120 mg tablet,extended release RxNorm: 7157566 1 Tablet(s) Oral every 12 hours as needed 09/04/20 19 2018 Inactive pantoprazole 40 mg tablet,delayed release RxNorm: 647959 1 Tablet(s) Oral every day 08/24/202018 Inactive discontinue any other H2Blkr. and PPI albuterol sulfate 2.5 mg/3 mL (0.083 %) solution for nebulization RxNorm: 160437 1 Vial Inhalation every four hours as needed as needed for dyspnea 08/17/202019 Inactive 60/box. This refill negates all other refills of this medication. Please do not fill early. Please do not auto refill. Symbicort 160 mcg-4.5 mcg/actuation HFA aerosol inhaler RxNorm: 3849926 2 Puff(s) INH BID 08/17/20 19 No Stop Date Active Alcohol Prep Pads RxNorm: 958141 1 Patch TOP QAM 08/17/20 19 2019 Inactive Ventolin HFA 90 mcg/actuation aerosol inhaler RxNorm: 434249 2 Puff(s) INH QID 08/09/20 19 2019 Inactive Please do not fill early. Please do not auto refill. This refill negates all other refills of this medication True Metrix Glucose Test Strip RxNorm: 1 Test Strips Miscellaneous QAM 08/09/20 19 2019 Inactive 100/container atorvastatin 40 mg tablet RxNorm: 235749 1 Tablet(s) Oral every day 07/04/20 19 2019 Inactive levmetamfetamine 50 mg nasal inhaler RxNorm: 1 Unit(s) NASAL Q3-4H Do not use more than every 3 hours or 8 times/24hours 06/26/20 19 2021 Inactive Please do not auto refill. This refill negates all other refills of this medication buspirone 7.5 mg tablet RxNorm: 925633 1 Tablet(s) PO BID 06/26/20 19 2020 Inactive This refill negates all other refills of this medication hydrochlorothiazide 12.5 mg tablet RxNorm: 719168 1 Tablet(s) PO QAM 06/26/20 19 2019 Inactive Ventolin HFA 90 mcg/actuation aerosol inhaler RxNorm: 093942 2 Puff(s) INH QID 06/26/20 19 2018 Inactive Please do not fill early. Please do not auto refill. This refill negates all other refills of this medication Singulair 10 mg tablet RxNorm: 652157 1 Tablet(s) PO daily 06/26/20 19 2019 Inactive This refill negates all other refills of this medication cetirizine 10 mg tablet RxNorm: 6131377 1 Tablet(s) PO daily 06/26/20 19 2019 Inactive This refill negates all other refills of this medication. Please do not auto refill levothyroxine 50 mcg tablet RxNorm: 644121 1 Tablet(s) PO daily 06/26/20 19 2019 Inactive This refill negates all other refills of this medication diclofenac sodium 75 mg tablet,delayed release RxNorm: 974851 1 Tablet(s) PO BID 06/26/20 19 2019 Inactive This refill negates all other refills of this medication ranitidine 150 mg tablet RxNorm: 706970 1 Tablet(s) PO BID 06/26/20 19 2018 Inactive This refill negates all other refills of this medication Calcium 600-D3 Plus (mag-zinc) 600 mg calcium-800 unit-50 mg tablet RxNorm: 1 Tablet(s) PO daily take an additonal tablet for itching. 06/26/20 19 2018 Inactive This refill negates all other refills of this medication albuterol sulfate 2.5 mg/3 mL (0.083 %) solution for nebulization RxNorm: 474874 1 Vial INH QID 06/26/20 19 2018 Inactive 60/box. This refill negates all other refills of this medication. Please do not fill early. Please do not auto refill. lisinopril 2.5 mg tablet RxNorm: 513510 1 Tablet(s) PO daily 06/21/20 19 2019 Inactive gabapentin 300 mg capsule RxNorm: 438841 1 Capsule(s) PO TID 06/21/20 19 2019 Inactive atorvastatin 20 mg tablet RxNorm: 549968 1 Tablet(s) PO QHS 06/07/20 19 2018 Inactive This refill negates all other refills of this medication TRUEplus Lancets 30 gauge RxNorm: 1 Lancets Miscellaneous QAM 05/29/20 19 2018 Inactive 100/box gabapentin 300 mg capsule RxNorm: 434570 1 Capsule(s) PO TID 05/03/20 19 2018 Inactive Flintstones Complete (iron) 18 mg iron chewable tablet RxNorm: 1 Tablet(s) PO daily 04/04/20 19 2021 Inactive This refill negates all other refills of this medication gabapentin 300 mg capsule RxNorm: 343759 1 Capsule(s) PO TID as needed 02/01/20 19 2018 Inactive True Metrix Glucose Test Strip RxNorm: 1 Test Strips Miscellaneous QA 02/01/20 19 2018 Inactive 100/container Alcohol Prep Pads RxNorm: 440361 1 Patch TOP QAM 02/01/20 19 2018 Inactive TRUEplus Lancets 30 gauge RxNorm: 1 Lancets Miscellaneous QAM 02/01/20 19 2018 Inactive 100/box lisinopril 2.5 mg tablet RxNorm: 011602 1 Tablet(s) PO daily 12/28/19 19 2018 Inactive ranitidine 150 mg tablet RxNorm: 297223 1 Tablet(s) PO BID 10/21/19 19 2018 Inactive This refill negates all other refills of this medication albuterol sulfate 2.5 mg/3 mL (0.083 %) solution for nebulization RxNorm: 328889 1 Vial INH QID 10/21/19 19 2018 [...] this medication gabapentin 300 mg capsule RxNorm: 826800 1 Capsule(s) PO TID as needed 10/21/19 19 2018 Inactive atorvastatin 20 mg tablet RxNorm: 125469 1 Tablet(s) PO QHS 10/21/19 19 2018 Inactive This refill negates all other refills of this medication trazodone 50 mg tablet RxNorm: 534857 1 Tablet(s) PO QHS 10/21/19 19 2018 Inactive This refill negates all other refills of this medication Ventolin HFA 90 mcg/actuation aerosol inhaler RxNorm: 551500 2 Puff(s) INH QID 10/21/19 19 2018 Inactive Please do not fill early. Please do not auto refill. This refill negates all other refills of this medication Calcium 600-D3 Plus 600 mg calcium-800 unit-50 mg tablet RxNorm: 1 Tablet(s) PO daily take an additonal tablet for itching. 10/21/192018 Inactive This refill negates all other refills of this medication Singulair 10 mg tablet RxNorm: 443765 1 Tablet(s) PO daily 10/21/19 19 2018 Inactive This refill negates all other refills of this medication buspirone 7.5 mg tablet RxNorm: 032423 1 Tablet(s) PO BID 10/21/192018 Inactive This refill negates all other refills of this medication diclofenac sodium 75 mg tablet,delayed release RxNorm: 778225 1 Tablet(s) PO BID 10/21/19 19 2018 Inactive This refill negates all other refills of this medication hydrochlorothiazide 12.5 mg tablet RxNorm: 104300 1 Tablet(s) PO QAM 10/21/19 19 2018 Inactive metoprolol succinate ER 50 mg tablet,extended release 24 hr RxNorm: 541200 1 Tablet(s) PO daily 10/21/19 19 2018 Inactive This refill negates all other refills of this medication levothyroxine 50 mcg tablet RxNorm: 440545 1 Tablet(s) PO daily 10/21/19 19 2018 Inactive This refill negates all other refills of this medication cetirizine 10 mg tablet RxNorm: 8914128 1 Tablet(s) PO daily 10/21/192018 Inactive This refill negates all other refills of this medication. Please do not auto refill Flintstones Complete (iron) 18 mg iron chewable tablet RxNorm: 1 Tablet(s) PO daily 10/21/192018 Inactive This refill negates all other refills of this medication buspirone 7.5 mg tablet RxNorm: 047670 1 Tablet(s) PO BID 10/12/192018 Inactive cetirizine 10 mg tablet RxNorm: 6977666 1 Tablet(s) PO daily 09/28/202018 Inactive Guaiasorb DM 10 mg-100 mg/5 mL oral liquid RxNorm: 047983 10 Milliliter(s) PO As needed every 4 hr 09/24/20 18 2018 Inactive Vicks Vaporub 4.7 %-1.2 %-2.6 % topical ointment RxNorm: 1698440 1 Application TOP TID 09/24/20 18 2018 Inactive levmetamfetamine 50 mg nasal inhaler RxNorm: 1 Unit(s) NASAL Q3-4H 09/24/20 18 2017 Inactive sertraline 50 mg tablet RxNorm: 055307 1 Tablet(s) PO daily 09/09/20 18 2018 Inactive Please note dose trazodone 50 mg tablet RxNorm: 639530 1 Tablet(s) PO QHS 09/06/20 18 2018 Inactive sertraline 50 mg tablet RxNorm: 958432 1 Tablet(s) PO daily 09/06/20 18 2017 Inactive amoxicillin 500 mg tablet RxNorm: 378923 1 Tablet(s) PO Q12H 08/31/20 18 2017 Inactive albuterol sulfate 2.5 mg/3 mL (0.083 %) solution for nebulization RxNorm: 604903 1 Vial INH QID 08/10/20 18 2018 Inactive 60/box. Please do not fill early. Please do not auto refill. Prozac 10 mg capsule RxNorm: 551989 1 Capsule(s) PO daily 08/09/20 18 2017 Inactive buspirone 7.5 mg tablet RxNorm: 081037 1 Tablet(s) PO BID 08/09/20 18 2018 Inactive gabapentin 300 mg capsule RxNorm: 826426 1 Capsule(s) PO TID as needed 08/01/20 18 2018 Inactive hydrochlorothiazide 12.5 mg tablet RxNorm: 808339 1 Tablet(s) PO QAM 08/01/20 18 2018 Inactive ranitidine 150 mg tablet RxNorm: 255588 1 Tablet(s) PO BID 08/01/20 18 2018 Inactive Macrobid 100 mg capsule RxNorm: 204801 1 Capsule(s) PO Q12H 06/21/20 18 2017 Inactive Singulair 10 mg tablet RxNorm: 378680 1 Tablet(s) PO daily 06/14/20 18 2018 Inactive Ventolin HFA 90 mcg/actuation aerosol inhaler RxNorm: 4194377 2 Puff(s) INH QID 06/14/20 18 2018 Inactive Singulair 10 mg tablet RxNorm: 357999 1 Tablet(s) PO daily 06/14/20 18 2017 Inactive buspirone 7.5 mg tablet RxNorm: 687948 1 Tablet(s) PO BID 06/14/20 18 2017 Inactive Prozac 10 mg capsule RxNorm: 514719 1 Capsule(s) PO daily 06/14/20 18 2017 Inactive Neilmed Pediatric Sinus Rinse Refill packet RxNorm: 1 Unit Dose NASAL PRN 05/31/20 18 2021 Inactive diclofenac sodium 75 mg tablet,delayed release RxNorm: 191288 1 Tablet(s) PO BID 05/31/20 18 2017 Inactive lisinopril 2.5 mg tablet RxNorm: 290115 1 Tablet(s) PO daily 05/31/20 18 2017 Inactive metoprolol succinate ER 50 mg tablet,extended release 24 hr RxNorm: 637844 1 Tablet(s) PO daily 05/31/20 18 2017 Inactive levothyroxine 50 mcg tablet RxNorm: 171960 1 Tablet(s) PO daily 05/31/20 18 2017 Inactive TRUEplus Lancets 30 gauge RxNorm: 1 Lancets Miscellaneous QAM 05/31/20 18 2017 Inactive 100/box Ventolin HFA 90 mcg/actuation aerosol inhaler RxNorm: 700259 2 Puff(s) INH QID 05/31/20 18 2017 Inactive Aleve 220 mg capsule RxNorm: 0718404 1 Capsule(s) PO BID 05/31/20 18 2018 Inactive ranitidine 150 mg tablet RxNorm: 195975 1 Tablet(s) PO BID 05/31/20 18 2017 Inactive gabapentin 300 mg capsule RxNorm: 824981 1 Capsule(s) PO TID as needed 05/31/20 18 2017 Inactive atorvastatin 20 mg tablet RxNorm: 955275 1 Tablet(s) PO QHS 05/31/20 18 2017 Inactive True Metrix Glucose Test Strip RxNorm: 1 Test Strips Miscellaneous QAM 05/31/20 18 2017 Inactive 50/container Calcium 600-D3 Plus 600 mg calcium-800 unit-50 mg tablet RxNorm: 1 Tablet(s) PO daily take an additonal tablet for itching. 05/31/20 18 2017 Inactive hydrochlorothiazide 12.5 mg tablet RxNorm: 926659 1 Tablet(s) PO QAM 05/31/20 18 2017 Inactive Flintstones Complete (iron) 18 mg iron chewable tablet RxNorm: 1 Tablet(s) PO daily 05/31/20 18 2017 Inactive d-mannose oral powder RxNorm: PO 18 2021 Inactive True Metrix Glucose Meter RxNorm: miscellaneous 08/17/202018 Inactive sertraline 50 mg tablet RxNorm: 151921 1 Tablet(s) PO daily 11/28/19 20 2019 Inactive loperamide 2 mg tablet RxNorm: 417499 oral 09/29/20 19 2018 Inactive Symbicort 160 mcg-4.5 mcg/actuation HFA aerosol inhaler RxNorm: 3902656 2 Puff(s) INH BID 08/17/20 19 2018 Inactive Medication Administered No Medication Administered data Procedures Procedure Codes Date Urinalysis, dip stick CPT-4: 96761 09/24/2020 Patient Health Questionnaire CPT-4: DPHQ Electrocardiogram CPT-4: 72656 05/14/2020 Tobacco Assessment/Screening CPT-4: TCA [facility] 4 CPT-4: DFRA01/01/2020Functional AssessmentCPT-4: DFA01/01/2020[place] Fany AssessmentCPT-4: DSWA11/28/2019Patient Health QuestionnaireCPT-4: DPHQ11/28/2019 [place] Fany AssessmentCPT-4: DSWA10/17/2019HypertensionCPT-4: HTN10/17/2019 [facility] 906127817 CPT-4: DFRA09/19/2019Functional AssessmentCPT-4: DFA111/20/2018Urinalysis, dip stickCPT-4: 727304506/21/2019Tobacco Assessment/ScreeningCPT-4: TCA05/24/2019 Patient Health QuestionnaireCPT-4: DPHQ05/24/2019AHA/REBECCA Classification AssessmentCPT-4: DAHA04/25/2019Controlled Substance ReportCPT-4: CTRSU07 Urinalysis, dip stickCPT-4: 2451842Urinalysis, dip stickCPT-4: 49223 03/28/20197683X2J-GtphtgyyzfoweheEWA-7: 21034TwxdietS6O-IvteddxnewztwftZJC-6: 06450 MtbfbmtN4S-UwbvbjthwiosxafXKL-5: 96296ZvfdjrlZ2E-PxrxlgxvlyakrmsARP-5: 64919 IzsnlojD3J-UbhpjkqwxpshkcnPFD-4: 41100JifcetgV0S-TpijgjfaczkhvtoBPW-5: 55015 UnknownGynecology [facility]erralSN[facility]: 181452984 CPT-4: X83Iyhtnmx Reason For Visit No Reason For Visit data Plan of Care Planned Activity Notes Codes Status Date Referral: Pending Gynecology Referral Informatio n Referral ProcessedReferral: Pending Pulmonology Referral InformationReferralProcessed Referral: Pending Psychiatry Referral InformationReferralInitiatedReferral: Pending Respiratory Services Referral InformationReferralInitiatedReferral: Pending Ophthalmology Referral InformationReferralInitiatedReferral: [facility] WPtel: [address] [place] [address] USWriter placed a call out to the patient to notify her that it has been recommended that she be seenby a urologist. Patient agreed to be seen, does not have a provider of choice and no transportationissues. Surgical Technology Instructor faxed referral and clinical notes to [facility] in [place], [place] near the patient's home. Patient to [...] seen and prefers a provider in the [place] or [facility]. Surgical Technology Instructor placed a call out to everyone listed in the area and the only location that was able to accept the patient's insurance was [facility] [address] [place] [address] and spoke with Maylin. Maylin asked that the patient's referral, face sheet and visit notes be faxed to . Surgical Technology Instructor faxed over requested documents. Patient appointment confirmation letter generated and mailed to her home address. Patient to call to schedule an appointment.ProcessedReferral: [facility] WPtel: [address] [id number] USPatient notified that it has been advised that she be seen by Neurology. Patient agreed to be seen and prefers to be seen by a provider in the [place], [place] area. Patient denies any concerns with transportation, and prefers to schedule her own appointment. Surgical Technology Instructor [facility] [...]
--- OUTSIDE RECORDS SUMMARY | 2023-12-07 02:14 | XMS_ITS | CCD ---
Author Name Leena Culver NP Address [address] [place] [address] [address] [place] [address] Phone Organization [employer] [facility] Phone Care Team Providers Care Supervisor Metal Placing Name Role Phone Anna Culver NP Primary Care Provider Unav ailable Unavailable Chronic Care Management Unavaila ble Summary Purpose DataExchange Insurance Providers Payer name Policy type / Coverage type Covered libertarian ID Effective Begin Date Effective End Date SUKI MAYO [id number] Unknown Unknown Family history Mother Diagnosis Age [...] 05/31/2018 Education level Unknown Some High School 10th05/31/20181309XeachhsjlbGwiokoiDwyawzpsnd63/29/2018Tobacco historySNOMED CT: [id number] never smoked or chewed upgrrrw0205/31/2018Alcohol historySNOMED CT: 901807471Crlih drinks zrahimu3805/31/2018Has the patient ever used illegal drugs? UnknownHas never used illegal drugs05/31/2018DNR Order/ Advanced Directive UnknownFull Code05/31/2018 Allergies, Adverse Reactions, Alerts Substance Reaction Codes Entered Date Inactivated Date Status *No known food allergies Vucobqp5509/06/2018No Inactive DateActiveMethylprednisolonehivesRxNorm: 6902 09/06/2018No Inactive DateActive Problems Condition Codes Effective Dates Condition St atus Essential (primary) hypertension ICD-10: I10 ICD-9: 401.901/10/2018ActiveHistory of surgery on right wristICD-10: Z98.890 ICD-9: V45.8901/1ActiveType 2 diabetes mellitus with peripheral neuropathy ICD-10: E11.42 ICD-9: 250.6002ActiveAdjustment disorder with mixed anxiety and depressed moodICD-10: F43.23 ICD-9: 309.2812ActiveChronic kidney disease, stage 2 (mild)ICD-10: N18.2 ICD-9: 585.201/1ActiveGERD (gastroesophageal reflux disease)ICD-10: K21.9 ICD-9: 530.8112ActiveRight wrist painICD-10: M25.531 ICD-9: 719.4308/09/2020ActiveUrinary tract infectionICD-10: N39.0 ICD-9: 599.012ActiveAbnormal urine findingICD-10: R82.90 ICD-9: 791.912ActiveHypertensive heart disease with heart failureICD-10: I11.0 ICD-9: 402.9107/ActivePolyneuropathy, unspecifiedICD-10: G62.9 ICD-9: 356.908ActiveEncounter for screening, unspecifiedICD-10: [...] collapseICD-10: R55 ICD-9: 780.203/ActiveFecal incontinenceICD-10: R15.9 ICD-9: 787.6003/ActiveMixed incontinenceICD-10: N39.46 ICD-9: 788.3308/ActiveDiarrheaICD-10: R19.7 ICD-9: 787.9112ActiveType 2 diabetes mellitus without complicationsICD- 10: E11.9 ICD-9: 250.0001/10/2018ActiveSinusitisICD-10: J32.9 ICD-9: 473.902ActiveAsthmaICD-10: J45.909 ICD-9: 493.9011ActiveAcute upper respiratory infection, unspecifiedICD- 10: J06.9 ICD-9: 465.912/12/2018ActiveApnea, not elsewhere classifiedICD-10: R06.81 ICD-9: 786.0305ActiveEncounter for immunizationICD-10: Z23 ICD-9: V03.907/ActivePatient Not SeenICD-10: UXZ.01 ICD-9: XZ0.107ActiveOther fdc (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ICD-10: Z79.899 ICD-9: V58.6907/ActiveChest pain, [...] Instructions omeprazole 20 mg capsule,delayed release RxNorm: 493491 1 Capsule(s) Oral every evening 11/24/192020 Inactive famotidine 10 mg tablet RxNorm: 201264 1 Tablet(s) Oral every morning 11/24/19 21 2020 Inactive Alcohol Prep Pads RxNorm: 637076 USE EACH MORNING 10/14/19 21 2020 Inactive omeprazole 20 mg capsule,delayed release RxNorm: 221760 1 Capsule(s) Oral two times a day 10/13/19 21 2021 Inactive omeprazole 20 mg capsule,delayed release RxNorm: 348625 TAKE 1 CAPSULE BY MOUTH EVERY DAY 10/08/19 21 2021 Inactive Macrobid 100 mg capsule RxNorm: 752547 1 Capsule(s) Oral every 12 hours with food 10/01/202020 Inactive omeprazole 20 mg capsule,delayed release RxNorm: 334520 1 Capsule(s) Oral two times a day 09/24/202021 Inactive metformin 1,000 mg tablet RxNorm: 887953 1 Tablet(s) Oral two times a day 08/19/20 20 2020 Inactive start on September 11, 2020 metformin 500 mg tablet RxNorm: 975077 1 Tablet(s) Oral two times a day take with 500mg to equal 1000mg 08/19/20 20 2019 Inactive gabapentin 300 mg capsule RxNorm: 048487 TAKE 1 CAPSULE BY MOUTH THREE TIMES DAILY 07/11/20 20 2020 Inactive cetirizine 10 mg tablet RxNorm: 0453600 TAKE (1) TABLET BY MOUTH DAILY 07/11/20 20 2020 Inactive metformin 500 mg tablet RxNorm: 205846 1 Tablet(s) Oral two times a day 07/08/20 20 2019 Inactive loperamide 2 mg tablet RxNorm: 535630 1 Tablet(s) Oral as needed take one tablet after each loose stool, maximum of 8 tablets in 24 hours 06/24/202021 Inactive Sudafed 12 Hour 120 mg tablet,extended release RxNorm: 3952257 TAKE 1 TABLET BY MOUTH EVERY 12 HOURS NEEDED 06/11/20 20 2019 Inactive hydrochlorothiazide 25 mg tablet RxNorm: 156574 TAKE (1) TABLET BY MOUTH EVERY DAY 06/11/202019 Inactive omeprazole 20 mg capsule,delayed release RxNorm: 918050 TAKE 1 CAPSULE BY MOUTH EVERY DAY 05/14/202020 Inactive metformin 500 mg tablet RxNorm: 027183 1 Tablet(s) Oral every day 05/12/202019 Inactive True Metrix Glucose Test Strip RxNorm: 1 Test Strips Miscellaneous two times a day as needed 04/17/20 No Stop Date Active metformin 500 mg tablet RxNorm: 843252 1 Tablet(s) Oral every day 04/17/20 20 2019 Inactive diclofenac sodium 75 mg tablet,delayed release RxNorm: 973970 1 Tablet(s) PO BID 04/14/20 20 2021 Inactive This refill negates all other refills of this medication Sudafed 12 Hour 120 mg tablet,extended release RxNorm: 1291453 TAKE 1 TABLET BY MOUTH EVERY 12 HOURS NEEDED 03/14/20 20 2019 Inactive True Metrix Glucose Test Strip RxNorm: 1 Test Strips Miscellaneous every morning 03/13/20 20 2019 Inactive 100/container True Metrix Glucose Test Strip RxNorm: 1 Test Strips Miscellaneous QAM 02/22/20 20 2019 Inactive 100/container loperamide 2 mg tablet RxNorm: 989584 1 Tablet(s) Oral as needed take one tablet after each loose stool, maximum of 8 tablets in 24 hours 02/22/20 20 2019 Inactive levothyroxine 50 mcg tablet RxNorm: 963781 1 Tablet(s) PO daily 01/17/20 20 2020 Inactive cetirizine 10 mg tablet RxNorm: 4445749 1 Tablet(s) PO daily 01/17/20 20 2019 Inactive loperamide 2 mg tablet RxNorm: 581458 1 Tablet(s) Oral as needed take one tablet after each loose stool, maximum of 8 tablets in 24 hours 01/17/20 20 2019 Inactive quetiapine 100 mg tablet RxNorm: 104263 1 Tablet(s) Oral every night at bedtime 01/17/20 20 2019 Inactive gabapentin 300 mg capsule RxNorm: 154421 1 Capsule(s) PO TID 01/17/20 20 2019 Inactive lisinopril 2.5 mg tablet RxNorm: 209949 1 Tablet(s) PO daily 01/15/20 20 2020 Inactive Singulair 10 mg tablet RxNorm: 641782 1 Tablet(s) PO daily 01/15/20 20 2020 Inactive levothyroxine 50 mcg tablet RxNorm: 961938 1 Tablet(s) PO daily 01/15/20 20 2019 Inactive gabapentin 300 mg capsule RxNorm: 773509 1 Capsule(s) PO TID 01/15/20 2019 Inactive cetirizine 10 mg tablet RxNorm: 4734667 1 Tablet(s) PO daily 01/15/20 20 2019 Inactive gentamicin 0.3 % eye drops RxNorm: 024374 1 Drop(s) ophthalmic (eye) four times a day 12/29/19 20 2019 Inactive gentamicin 0.3 % eye drops RxNorm: 355058 1 Drop(s) ophthalmic (eye) four times a day 12/29/19 20 2019 Inactive gentamicin 0.3 % eye drops RxNorm: 732567 1 Drop(s) ophthalmic (eye) four times a day 12/29/19 20 2019 Inactive hydrochlorothiazide 25 mg tablet RxNorm: 335128 1 Tablet(s) Oral every day 12/21/19 20 2019 Inactive Sudafed 12 Hour 120 mg tablet,extended release RxNorm: 6049117 TAKE (1) TABLET BY MOUTH EVERY 12 HOURS NEEDED 12/21/19 20 2019 Inactive loperamide 2 mg tablet RxNorm: 217381 1 Tablet(s) Oral as needed take one tablet after each loose stool, maximum of 8 tablets in 24 hours 12/11/19 20 2019 Inactive loperamide 2 mg tablet RxNorm: 015612 1 Tablet(s) Oral as needed take one tablet after each loose stool, maximum of 8 tablets in 24 hours 12/11/19 20 2019 Inactive atorvastatin 40 mg tablet RxNorm: 657278 1 Tablet(s) Oral every day 11/29/19 20 2020 Inactive quetiapine 100 mg tablet RxNorm: 407425 1 Tablet(s) Oral every night at bedtime 11/28/19 20 2019 Inactive sertraline 100 mg tablet RxNorm: 457181 1 Tablet(s) Oral 11/28/19 20 2019 Inactive omeprazole 20 mg capsule,delayed release RxNorm: 956859 1 Capsule(s) Oral every day 11/20/19 20 2019 Inactive amoxicillin 250 mg capsule RxNorm: 857413 1 Capsule(s) Oral three times a day 11/07/19 20 2019 Inactive multivitamin with iron-mineral tablet RxNorm: 1 Tablet(s) Oral every day 10/29/19 20 2021 Inactive cetirizine 10 mg tablet RxNorm: 7818584 1 Tablet(s) PO daily 10/20/19 20 2019 Inactive This refill negates all other refills of this medication. Please do not auto refill Singulair 10 mg tablet RxNorm: 219016 1 Tablet(s) PO daily 10/20/19 20 2019 Inactive This refill negates all other refills of this medication gabapentin 300 mg capsule RxNorm: 817316 1 Capsule(s) PO TID 10/20/19 20 2019 Inactive lisinopril 2.5 mg tablet RxNorm: 169563 1 Tablet(s) PO daily 10/20/19 20 2019 Inactive levothyroxine 50 mcg tablet RxNorm: 040359 1 Tablet(s) PO daily 10/20/192019 Inactive This refill negates all other refills of this medication fenugreek seed extract 500 mg capsule RxNorm: 1 Capsule(s) Oral three times a day 10/17/19 20 2021 Inactive hydrochlorothiazide 25 mg tablet RxNorm: 879867 1 Tablet(s) Oral every day 10/17/19 20 2019 Inactive Alcohol Prep Pads RxNorm: 151013 1 Patch TOP QAM 10/16/19 20 2020 Inactive loperamide 2 mg tablet RxNorm: 487562 1 Tablet(s) Oral as needed take one [...] 2019 Inactive hydrochlorothiazide 25 mg tablet RxNorm: 602394 1 Tablet(s) Oral every day 09/19/20 19 2019 Inactive Sudafed 12 Hour 120 mg tablet,extended release RxNorm: 6542231 1 Tablet(s) Oral every 12 hours as needed 09/11/20 19 2018 Inactive omeprazole 20 mg capsule,delayed release RxNorm: 818863 1 Capsule(s) Oral every day 09/07/20 19 2019 Inactive Sudafed 12 Hour 120 mg tablet,extended release RxNorm: 3899018 1 Tablet(s) Oral every 12 hours as needed 09/04/20 19 2018 Inactive pantoprazole 40 mg tablet,delayed release RxNorm: 522543 1 Tablet(s) Oral every day 08/24/20 19 2018 Inactive discontinue any other H2Blkr. and PPI albuterol sulfate 2.5 mg/3 mL (0.083 %) solution for nebulization RxNorm: 283441 1 Vial Inhalation every four hours as needed as needed for dyspnea 08/17/202019 Inactive 60/box. This refill negates all other refills of this medication. Please do not fill early. Please do not auto refill. Symbicort 160 mcg-4.5 mcg/actuation HFA aerosol inhaler RxNorm: 1104166 2 Puff(s) INH BID 08/17/20 19 No Stop Date Active Alcohol Prep Pads RxNorm: 350440 1 Patch TOP QAM 08/17/20 19 2019 Inactive Ventolin HFA 90 mcg/actuation aerosol inhaler RxNorm: 391801 2 Puff(s) INH QID 08/09/20 19 2019 Inactive Please do not fill early. Please do not auto refill. This refill negates all other refills of this medication True Metrix Glucose Test Strip RxNorm: 1 Test Strips Miscellaneous QAM 08/09/20 19 2019 Inactive 100/container atorvastatin 40 mg tablet RxNorm: 623662 1 Tablet(s) Oral every day 07/04/20 19 2019 Inactive levmetamfetamine 50 mg nasal inhaler RxNorm: 1 Unit(s) NASAL Q3-4H Do not use more than every 3 hours or 8 times/24hours 06/26/20 19 2021 Inactive Please do not auto refill. This refill negates all other refills of this medication buspirone 7.5 mg tablet RxNorm: 309884 1 Tablet(s) PO BID 06/26/20 19 2020 Inactive This refill negates all other refills of this medication hydrochlorothiazide 12.5 mg tablet RxNorm: 033228 1 Tablet(s) PO QAM 06/26/20 19 2019 Inactive Ventolin HFA 90 mcg/actuation aerosol inhaler RxNorm: 246993 2 Puff(s) INH QID 06/26/20 19 2018 Inactive Please do not fill early. Please do not auto refill. This refill negates all other refills of this medication Singulair 10 mg tablet RxNorm: 226372 1 Tablet(s) PO daily 06/26/20 19 2019 Inactive This refill negates all other refills of this medication cetirizine 10 mg tablet RxNorm: 9653953 1 Tablet(s) PO daily 06/26/20 19 2019 Inactive This refill negates all other refills of this medication. Please do not auto refill levothyroxine 50 mcg tablet RxNorm: 837812 1 Tablet(s) PO daily 06/26/20 19 2019 Inactive This refill negates all other refills of this medication diclofenac sodium 75 mg tablet,delayed release RxNorm: 820434 1 Tablet(s) PO BID 06/26/20 19 2019 Inactive This refill negates all other refills of this medication ranitidine 150 mg tablet RxNorm: 184046 1 Tablet(s) PO BID 06/26/20 19 2018 Inactive This refill negates all other refills of this medication Calcium 600-D3 Plus (mag-zinc) 600 mg calcium-800 unit-50 mg tablet RxNorm: 1 Tablet(s) PO daily take an additonal tablet for itching. 06/26/20 19 2018 Inactive This refill negates all other refills of this medication albuterol sulfate 2.5 mg/3 mL (0.083 %) solution for nebulization RxNorm: 114935 1 Vial INH QID 06/26/20 19 2018 Inactive 60/box. This refill negates all other refills of this medication. Please do not fill early. Please do not auto refill. lisinopril 2.5 mg tablet RxNorm: 506052 1 Tablet(s) PO daily 06/21/20 19 2019 Inactive gabapentin 300 mg capsule RxNorm: 984397 1 Capsule(s) PO TID 06/21/20 19 2019 Inactive atorvastatin 20 mg tablet RxNorm: 539953 1 Tablet(s) PO QHS 06/07/202018 Inactive This refill negates all other refills of this medication TRUEplus Lancets 30 gauge RxNorm: 1 Lancets Miscellaneous QAM 05/29/20 19 2018 Inactive 100/box gabapentin 300 mg capsule RxNorm: 578648 1 Capsule(s) PO TID 05/03/20 19 2018 Inactive Flintstones Complete (iron) 18 mg iron chewable tablet RxNorm: 1 Tablet(s) PO daily 04/04/20 19 2021 Inactive This refill negates all other refills of this medication gabapentin 300 mg capsule RxNorm: 873430 1 Capsule(s) PO TID as needed 02/01/20 19 2018 Inactive True Metrix Glucose Test Strip RxNorm: 1 Test Strips Miscellaneous QA 02/01/20 19 2018 Inactive 100/container Alcohol Prep Pads RxNorm: 662765 1 Patch TOP QAM 02/01/20 19 2018 Inactive TRUEplus Lancets 30 gauge RxNorm: 1 Lancets Miscellaneous QAM 02/01/20 19 2018 Inactive 100/box lisinopril 2.5 mg tablet RxNorm: 081663 1 Tablet(s) PO daily 12/28/19 19 2018 Inactive ranitidine 150 mg tablet RxNorm: 844524 1 Tablet(s) PO BID 10/21/19 19 2018 Inactive This refill negates all other refills of this medication albuterol sulfate 2.5 mg/3 mL (0.083 %) solution for nebulization RxNorm: 720810 1 Vial INH QID 10/21/19 19 2018 [...] this medication gabapentin 300 mg capsule RxNorm: 716388 1 Capsule(s) PO TID as needed 10/21/192018 Inactive atorvastatin 20 mg tablet RxNorm: 062112 1 Tablet(s) PO QHS 10/21/192018 Inactive This refill negates all other refills of this medication trazodone 50 mg tablet RxNorm: 586765 1 Tablet(s) PO QHS 10/21/192018 Inactive This refill negates all other refills of this medication Ventolin HFA 90 mcg/actuation aerosol inhaler RxNorm: 578848 2 Puff(s) INH QID 10/21/192018 Inactive Please do not fill early. Please do not auto refill. This refill negates all other refills of this medication Calcium 600-D3 Plus 600 mg calcium-800 unit-50 mg tablet RxNorm: 1 Tablet(s) PO daily take an additonal tablet for itching. 10/21/192018 Inactive This refill negates all other refills of this medication Singulair 10 mg tablet RxNorm: 248431 1 Tablet(s) PO daily 10/21/192018 Inactive This refill negates all other refills of this medication buspirone 7.5 mg tablet RxNorm: 415571 1 Tablet(s) PO BID 10/21/192018 Inactive This refill negates all other refills of this medication diclofenac sodium 75 mg tablet,delayed release RxNorm: 606136 1 Tablet(s) PO BID 10/21/19 19 2018 Inactive This refill negates all other refills of this medication hydrochlorothiazide 12.5 mg tablet RxNorm: 371541 1 Tablet(s) PO QAM 10/21/19 19 2018 Inactive metoprolol succinate ER 50 mg tablet,extended release 24 hr RxNorm: 074309 1 Tablet(s) PO daily 10/21/19 19 2018 Inactive This refill negates all other refills of this medication levothyroxine 50 mcg tablet RxNorm: 399032 1 Tablet(s) PO daily 10/21/192018 Inactive This refill negates all other refills of this medication cetirizine 10 mg tablet RxNorm: 6762041 1 Tablet(s) PO daily 10/21/192018 Inactive This refill negates all other refills of this medication. Please do not auto refill Flintstones Complete (iron) 18 mg iron chewable tablet RxNorm: 1 Tablet(s) PO daily 10/21/192018 Inactive This refill negates all other refills of this medication buspirone 7.5 mg tablet RxNorm: 066822 1 Tablet(s) PO BID 10/12/192018 Inactive cetirizine 10 mg tablet RxNorm: 8665708 1 Tablet(s) PO daily 09/28/202018 Inactive Guaiasorb DM 10 mg-100 mg/5 mL oral liquid RxNorm: 658842 10 Milliliter(s) PO As needed every 4 hr 09/24/202018 Inactive Vicks Vaporub 4.7 %-1.2 %-2.6 % topical ointment RxNorm: 6742843 1 Application TOP TID 09/24/20 18 2018 Inactive levmetamfetamine 50 mg nasal inhaler RxNorm: 1 Unit(s) NASAL Q3-4H 09/24/20 18 2017 Inactive sertraline 50 mg tablet RxNorm: 044687 1 Tablet(s) PO daily 09/09/20 18 2018 Inactive Please note dose trazodone 50 mg tablet RxNorm: 470805 1 Tablet(s) PO QHS 09/06/20 18 2018 Inactive sertraline 50 mg tablet RxNorm: 149935 1 Tablet(s) PO daily 09/06/20 18 2017 Inactive amoxicillin 500 mg tablet RxNorm: 322852 1 Tablet(s) PO Q12H 08/31/20 18 2017 Inactive albuterol sulfate 2.5 mg/3 mL (0.083 %) solution for nebulization RxNorm: 074669 1 Vial INH QID 08/10/20 18 2018 Inactive 60/box. Please do not fill early. Please do not auto refill. Prozac 10 mg capsule RxNorm: 242117 1 Capsule(s) PO daily 08/09/20 18 2017 Inactive buspirone 7.5 mg tablet RxNorm: 786347 1 Tablet(s) PO BID 08/09/20 18 2018 Inactive gabapentin 300 mg capsule RxNorm: 604644 1 Capsule(s) PO TID as needed 08/01/20 18 2018 Inactive hydrochlorothiazide 12.5 mg tablet RxNorm: 378912 1 Tablet(s) PO QAM 08/01/20 18 2018 Inactive ranitidine 150 mg tablet RxNorm: 356598 1 Tablet(s) PO BID 08/01/20 18 2018 Inactive Macrobid 100 mg capsule RxNorm: 508153 1 Capsule(s) PO Q12H 06/21/20 18 2017 Inactive Singulair 10 mg tablet RxNorm: 945325 1 Tablet(s) PO daily 06/14/20 18 2018 Inactive Ventolin HFA 90 mcg/actuation aerosol inhaler RxNorm: 7402193 2 Puff(s) INH QID 06/14/20 18 2018 Inactive Singulair 10 mg tablet RxNorm: 119000 1 Tablet(s) PO daily 06/14/20 18 2017 Inactive buspirone 7.5 mg tablet RxNorm: 241709 1 Tablet(s) PO BID 06/14/20 18 2017 Inactive Prozac 10 mg capsule RxNorm: 637510 1 Capsule(s) PO daily 06/14/20 18 2017 Inactive Neilmed Pediatric Sinus Rinse Refill packet RxNorm: 1 Unit Dose NASAL PRN 05/31/20 18 2021 Inactive diclofenac sodium 75 mg tablet,delayed release RxNorm: 518375 1 Tablet(s) PO BID 05/31/20 18 2017 Inactive lisinopril 2.5 mg tablet RxNorm: 800542 1 Tablet(s) PO daily 05/31/20 18 2017 Inactive metoprolol succinate ER 50 mg tablet,extended release 24 hr RxNorm: 002670 1 Tablet(s) PO daily 05/31/20 18 2017 Inactive levothyroxine 50 mcg tablet RxNorm: 368287 1 Tablet(s) PO daily 05/31/20 18 2017 Inactive TRUEplus Lancets 30 gauge RxNorm: 1 Lancets Miscellaneous QAM 05/31/20 18 2017 Inactive 100/box Ventolin HFA 90 mcg/actuation aerosol inhaler RxNorm: 922552 2 Puff(s) INH QID 05/31/20 18 2017 Inactive Aleve 220 mg capsule RxNorm: 3523309 1 Capsule(s) PO BID 05/31/20 18 2018 Inactive ranitidine 150 mg tablet RxNorm: 920265 1 Tablet(s) PO BID 05/31/20 18 2017 Inactive gabapentin 300 mg capsule RxNorm: 494616 1 Capsule(s) PO TID as needed 05/31/20 18 2017 Inactive atorvastatin 20 mg tablet RxNorm: 320266 1 Tablet(s) PO QHS 05/31/20 18 2017 Inactive True Metrix Glucose Test Strip RxNorm: 1 Test Strips Miscellaneous QAM 05/31/20 18 2017 Inactive 50/container Calcium 600-D3 Plus 600 mg calcium-800 unit-50 mg tablet RxNorm: 1 Tablet(s) PO daily take an additonal tablet for itching. 05/31/20 18 2017 Inactive hydrochlorothiazide 12.5 mg tablet RxNorm: 981656 1 Tablet(s) PO QAM 05/31/20 18 2017 Inactive Flintstones Complete (iron) 18 mg iron chewable tablet RxNorm: 1 Tablet(s) PO daily 05/31/20 18 2017 Inactive d-mannose oral powder RxNorm: PO 18 2021 Inactive True Metrix Glucose Meter RxNorm: miscellaneous 08/17/20 19 2018 Inactive sertraline 50 mg tablet RxNorm: 118945 1 Tablet(s) PO daily 11/28/19 20 2019 Inactive loperamide 2 mg tablet RxNorm: 493072 oral 09/29/20 19 2018 Inactive Symbicort 160 mcg-4.5 mcg/actuation HFA aerosol inhaler RxNorm: 4330591 2 Puff(s) INH BID 08/17/20 19 2018 Inactive Medication Administered No Medication Administered data Procedures Procedure Codes Date Urinalysis, dip stick CPT-4: 87516 09/24/2020 Patient Health Questionnaire CPT-4: DPHQ Electrocardiogram CPT-4: 54241 05/14/2020 Tobacco Assessment/Screening CPT-4: TCA [facility] CPT-4: DFRA01/01/2020Functional AssessmentCPT-4: DFA01/01/2020[place] Fany AssessmentCPT-4: DSWA11/28/2019Patient Health QuestionnaireCPT-4: DPHQ11/28/2019 [place] Fany AssessmentCPT-4: DSWA10/17/2019HypertensionCPT-4: HTN10/17/2019 [facility] [id number] CPT-4: DFRA09/19/2019Functional AssessmentCPT-4: DFA111/20/2018Urinalysis, dip stickCPT-4: 662478306/21/2019Tobacco Assessment/ScreeningCPT-4: TCA05/24/2019 Patient Health QuestionnaireCPT-4: DPHQ05/24/2019AHA/REBECCA Classification AssessmentCPT-4: DAHA04/25/2019Controlled Substance ReportCPT-4: CTRSU04/25/2019 Urinalysis, dip stickCPT-4: 9774806Urinalysis, dip stickCPT-4: 75561 03/28/20197417U4J-AgmnmdflthmficjQMI-7: 48682ZhftzimW8M-OudwscxucoahftzRWG-4: 04485 PxiuzpwH7W-UatkoqyaupssckcIXZ-3: 80205HzdrirnW0L-CyrfemyiphtcomrDCH-3: 30956 FvkmszrL5B-TjopubassfhbysyGLR-3: 09312DiikwtkK2H-YrilhcqlhpdleeaQVB-8: 30850 UnknownGynecology ReferralSNOJE[facility]: 239308166 CPT-4: Z36Gpwbqmv Reason For Visit Reason For Visit Effective Dates Notes hypertension 11/24/2020 diabetes mellitus 11/24/2020 gastroesophageal reflux disease 11/24/2020 Interim health update 11/24/2020 Encounters Encounter Performer Location Location Address Codes Magdi e ([id number]) (EST PT) [facility] [place] [facility] Diagnosis: Type 2 diabetes mellitus with peripheral neuropathy[ICD10: E11.42] Diagnosis: Essential (primary) hypertension[ICD10: I10] Diagnosis: History of surgery on right wrist[ICD10: Z98.890]Anna Culver [place] [address] [place] [address] [place] [address] 90261SDR-8: [id number] Plan of Care Planned Activity Notes Codes [...] BID - received new monitor [employer] through [employer]-participant of [employer] on demand -will send all diabetic supplies to patient 10/29/2020 hgb A1C 5.6 10/17/2019 [place] Fany 7/10-instructed on good daily foot care [...] December K21.9-530.81 GERD (gastroesop hageal reflux disease) will trial famotidine 10mg qam and omeprazole 20mg at bedtime-to review effectiveness at next visit advised to limit late evening eating, avoid fried, greasy foods, and carbonated beverages G47.33-327.23 Obstructive sleep apnea (adult) (pediatric) J45.909-493.90 Asthma continue inhalers nebulizer routine f/u Dr. Garcia, pulmonology appt August 2020 F43.23-309.28 Adjustment disorder with mixed anxiety and depressed mood routine follow up [facility] [place] 08/19/2020 PHQ 9 [place] 1, admits to [...] to right wrist- Dr. Tee Shahid, hand range management specialist, outpatient surgery 10/09/2019 for arthoscopic exam [...] new appt for pap in June 2020-[employer] Supervisor-reportspap negative-records requested Z01.89- V72.85 Encounter for screening [...] visit verbalized understanding of all above topics. 1Patient Education: Patient Medication GydufkaNlzotowlk69/22/2021 Patient Education: PukfbtxhBnrnfoswp99/22/2021Patient Education: Hypertension Tccwuwfbk76/22/2021ppointment: Anna Culver WPtel: [address] [place] [address] [address] [address] [id number]: Anna Culver WPtel: [phone] [place] [address] [address] [place] [address] [id number]/25/2019Appointment: Anna Culver WPtel: [phone] [place] [address] [place] [address] USETV110/26/2019Appointment: Anna Culver WPtel: [phone] [place] [address] USETV110/19/2019Appointment: Anna Culver WPtel: [phone] [place] [address] [id number]: Anna Culver WPtel: [address] [place] [address] USETV1Appointment: Gianna [place] MCtel: [address] [facility] [address] [id number]: Anna Culver WPtel: [phone] [place] [address] [id number]: Anna Culver WPtel: [id number] [place] [address] [id number]: Anna Culver WPtel: [id number] [place] [address] [place] [address] [id number]: Anna Culver WPtel: [id number] [place] [address] [place] [address] [id number]: Anna Culver WPtel: [id number] [place] [address] [place] [address] [id number]: Anna Culver WPtel: [address] [address] [id number]: Anna Culver WPtel: [id number] [place] [address] [id number]: Anna Culver WPtel: [id number] [place] [address] [id number]: Anna Culver WPtel: [address] [place] [address] [id number]: Anna Culver WPtel: [address] [place] [address] [id number]: Sudha Hernadez WPtel: [address] [facility] [id number]: Sudha Hernadez WPtel: [address] [facility] [place] Suite [id number]: Charlene Oropeza WPtel: [address] [facility] [place] [address] [id number]: Danny KuciwrZ71398/26/2019Appointment: Charlene Oropeza WPtel: [address] [facility] [place] [address] [id number]: Javy Rasta WPtel: [address] [facility] [place] Suite [id number]: Javy Rasta WPtel: [address] [facility] [place] [address] [id number]: Javy Rasta WPtel: [address] [facility] [address] [id number]: Rasta Palafox WPtel: [address] [facility] [address] [id number]: Pending Gynecology Referral InformationReferral ProcessedReferral: Pending Pulmonology Referral InformationReferralProcessed Referral: Pending Psychiatry Referral InformationReferralInitiatedReferral: Pending Respiratory Services Referral InformationReferralInitiatedReferral: Pending Ophthalmology Referral InformationReferralInitiatedReferral: [facility] WPtel: [address] [place] [address] [address] [facility] USWriter placed a call out to the patient to notify her that it has been recommended that she be seenby a urologist. Patient agreed to be seen, does not have a provider of choice and no transportationissues. Independent Consultant faxed referral and clinical notes to [facility] in [place], [place] near the patient's home. Patient to [...] seen and prefers a provider in the [place] or [facility]. Independent Consultant placed a call out to everyone listed in the area and the only location that was able to accept the patient's insurance was [place] [address] [place] [address] and spoke with Maylin. Maylin asked that the patient's referral, face sheet and visit notes be faxed to . Independent Consultant faxed over requested documents. Patient appointment confirmation letter generated and mailed to her home address. Patient to call to schedule an appointment.ProcessedReferral: [facility] WPtel: [address] [place], [place] [id number] USPatient notified that it has been advised that she be seen by Neurology. Patient agreed to be seen and prefers to be seen by a provider in the [place], [place] area. Patient denies any concerns with transportation, and prefers to schedule her own appointment. Independent Consultant placed a call out to [facility] and spoke with Neeraj [...] BID - received new monitor [employer] through [employer]-participant of [employer] on demand - will send all diabetic supplies to patient 10/29/2020 hgb A1C 5.6 10/17/2019 [place] Fany 7/10-instructed on good daily foot care [...] it isMarch K21.9-530.81 GERD (gastroesophageal reflux disease) will trial [...] anxiety and depressed mood routine follow up [facility] [place] 08/19/2020 PHQ 9 Scoere 1, admits to [...] to right wrist- Dr. Tee Shahid, hand range management specialist, outpatient surgery 10/09/2019 for arthoscopic exam [...] new appt for pap in June 2020-[facility] [employer] Supervisor-reports pap negative-recordsrequested Z01.89-V72.85 Encounter for screening [...]
--- OUTSIDE RECORDS SUMMARY | 2023-12-07 02:14 | XMS_ITS | CCD ---
Author Name Leena Culver NP Address [address] [place] [address] [place] [address] Phone Organization [facility] Phone Care Team Providers Care Geopolitics Teacher Name Role Phone Anna Culver NP Primary Care Provider Unav ailable Unavailable Chronic Care Management Unavaila ble Summary Purpose DataExchange Insurance Providers Payer name Policy type / Coverage type Covered republican ID Effective Begin Date Effective End Date SUKI MAYO [id number] Unknown Unknown Family history Mother Diagnosis Age [...] 05/31/2018 Education level Unknown Some High School 10th05/31/20184730XnamzmtzkoKzqwyzuIyfbkziyei94/29/2018Tobacco historySNOMED CT: 546197840Ras never smoked or chewed scdliqm2905/31/2018Alcohol historySNOMED CT: 199794017Poyhd drinks yoztuqa4705/31/2018Has the patient ever used illegal drugs? UnknownHas never used illegal drugs05/31/2018DNR Order/ Advanced Directive UnknownFull Code05/31/2018 Allergies, Adverse Reactions, Alerts Substance Reaction Codes Entered Date Inactivated Date Status *No known food allergies Livchqt3709/06/2018No Inactive DateActiveMethylprednisolonehivesRxNorm: 6902 09/06/2018No Inactive DateActive Problems Condition Codes Effective Dates Condition St atus GERD (gastroesophageal reflux disease) I CD-10: K21.9 ICD-9: 530.8109/07/2019ActiveUrinary tract infectionICD-10: N39.0 ICD-9: 599.012/ActiveAbnormal urine findingICD-10: R82.90 ICD-9: 791.912ActiveAdjustment disorder with mixed anxiety and depressed moodICD-10: F43.23 ICD-9: 309.2812ActiveHypertensive heart disease with heart failureICD- 10: I11.0 ICD-9: 402.9107ActiveType 2 diabetes mellitus with peripheral neuropathy ICD-10: E11.42 ICD-9: 250.6002/ActivePolyneuropathy, unspecifiedICD-10: G62.9 ICD-9: 356.908ActiveRight wrist painICD-10: M25.531 [...] Z68.43 ICD-9: V85.4308/ActiveAbrasion of toeICD-10: S90.416A ICD-9: 917.005ActiveObstructive sleep apnea [...] ICD-9: V03.907/ActivePatient Not SeenICD-10: UXZ.01 ICD-9: XZ0.107ActiveOther parts counterman (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ICD-10: Z79.899 ICD-9: V58.6907/ActiveChest pain, [...] Instructions omeprazole 20 mg capsule,delayed release RxNorm: 251355 1 Capsule(s) Oral two times a day 10/13/19 21 2021 Inactive omeprazole 20 mg capsule,delayed release RxNorm: 309178 TAKE 1 CAPSULE BY MOUTH EVERY DAY 10/08/19 21 2021 Inactive Macrobid 100 mg capsule RxNorm: 947257 1 Capsule(s) Oral every 12 hours with food 10/01/20 20 2020 Inactive omeprazole 20 mg capsule,delayed release RxNorm: 641718 1 Capsule(s) Oral two times a day 09/24/20 20 2021 Inactive metformin 1,000 mg tablet RxNorm: 553881 1 Tablet(s) Oral two times a day 08/19/20 20 2020 Inactive start on September 11, 2020 metformin 500 mg tablet RxNorm: 300347 1 Tablet(s) Oral two times a day take with 500mg to equal 1000mg 08/19/20 20 2019 Inactive gabapentin 300 mg capsule RxNorm: 122024 TAKE 1 CAPSULE BY MOUTH THREE TIMES DAILY 07/11/20 20 2020 Inactive cetirizine 10 mg tablet RxNorm: 7143946 TAKE (1) TABLET BY MOUTH DAILY 07/11/20 20 2020 Inactive metformin 500 mg tablet RxNorm: 154256 1 Tablet(s) Oral two times a day 07/08/20 20 2019 Inactive loperamide 2 mg tablet RxNorm: 877273 1 Tablet(s) Oral as needed take one tablet after each loose stool, maximum of 8 tablets in 24 hours 06/24/20 20 2021 Inactive Sudafed 12 Hour 120 mg tablet,extended release RxNorm: 4462373 TAKE 1 TABLET BY MOUTH EVERY 12 HOURS NEEDED 06/11/20 20 2019 Inactive hydrochlorothiazide 25 mg tablet RxNorm: 066485 TAKE (1) TABLET BY MOUTH EVERY DAY 06/11/20 20 2019 Inactive omeprazole 20 mg capsule,delayed release RxNorm: 735207 TAKE 1 CAPSULE BY MOUTH EVERY DAY 05/14/20 20 2020 Inactive metformin 500 mg tablet RxNorm: 312310 1 Tablet(s) Oral every day 05/12/20 20 2019 Inactive True Metrix Glucose Test Strip RxNorm: 1 Test Strips Miscellaneous two times a day as needed 04/17/20 No Stop Date Active metformin 500 mg tablet RxNorm: 184305 1 Tablet(s) Oral every day 04/17/20 20 2019 Inactive diclofenac sodium 75 mg tablet,delayed release RxNorm: 367555 1 Tablet(s) PO BID 04/14/20 20 2021 Inactive This refill negates all other refills of this medication Sudafed 12 Hour 120 mg tablet,extended release RxNorm: 0185940 TAKE 1 TABLET BY MOUTH EVERY 12 HOURS NEEDED 03/14/20 20 2019 Inactive True Metrix Glucose Test Strip RxNorm: 1 Test Strips Miscellaneous every morning 03/13/20 20 2019 Inactive 100/container True Metrix Glucose Test Strip RxNorm: 1 Test Strips Miscellaneous QA 02/22/20 20 2019 Inactive 100/container loperamide 2 mg tablet RxNorm: 818477 1 Tablet(s) Oral as needed take one tablet after each loose stool, maximum of 8 tablets in 24 hours 02/22/20 20 2019 Inactive levothyroxine 50 mcg tablet RxNorm: 729299 1 Tablet(s) PO daily 01/17/20 20 2020 Inactive cetirizine 10 mg tablet RxNorm: 4946888 1 Tablet(s) PO daily 01/17/20 20 2019 Inactive loperamide 2 mg tablet RxNorm: 998919 1 Tablet(s) Oral as needed take one tablet after each loose stool, maximum of 8 tablets in 24 hours 01/17/20 20 2019 Inactive quetiapine 100 mg tablet RxNorm: 554872 1 Tablet(s) Oral every night at bedtime 01/17/20 20 2019 Inactive gabapentin 300 mg capsule RxNorm: 453592 1 Capsule(s) PO TID 01/17/20 20 2019 Inactive lisinopril 2.5 mg tablet RxNorm: 084879 1 Tablet(s) PO daily 01/15/20 20 2020 Inactive Singulair 10 mg tablet RxNorm: 078390 1 Tablet(s) PO daily 01/15/20 20 2020 Inactive levothyroxine 50 mcg tablet RxNorm: 763596 1 Tablet(s) PO daily 01/15/20 20 2019 Inactive gabapentin 300 mg capsule RxNorm: 507035 1 Capsule(s) PO TID 01/15/20 20 2019 Inactive cetirizine 10 mg tablet RxNorm: 9670656 1 Tablet(s) PO daily 01/15/20 20 2019 Inactive gentamicin 0.3 % eye drops RxNorm: 990228 1 Drop(s) ophthalmic (eye) four times a day 12/29/19 20 2019 Inactive gentamicin 0.3 % eye drops RxNorm: 159339 1 Drop(s) ophthalmic (eye) four times a day 12/29/19 20 2019 Inactive gentamicin 0.3 % eye drops RxNorm: 260917 1 Drop(s) ophthalmic (eye) four times a day 12/29/19 20 2019 Inactive hydrochlorothiazide 25 mg tablet RxNorm: 696022 1 Tablet(s) Oral every day 12/21/19 20 2019 Inactive Sudafed 12 Hour 120 mg tablet,extended release RxNorm: 9333720 TAKE (1) TABLET BY MOUTH EVERY 12 HOURS NEEDED 12/21/19 20 2019 Inactive loperamide 2 mg tablet RxNorm: 531500 1 Tablet(s) Oral as needed take one tablet after each loose stool, maximum of 8 tablets in 24 hours 12/11/19 20 2019 Inactive loperamide 2 mg tablet RxNorm: 556353 1 Tablet(s) Oral as needed take one tablet after each loose stool, maximum of 8 tablets in 24 hours 12/11/19 20 2019 Inactive atorvastatin 40 mg tablet RxNorm: 868270 1 Tablet(s) Oral every day 11/29/19 20 2020 Inactive quetiapine 100 mg tablet RxNorm: 899446 1 Tablet(s) Oral every night at bedtime 11/28/19 20 2019 Inactive sertraline 100 mg tablet RxNorm: 263638 1 Tablet(s) Oral 11/28/19 20 2019 Inactive omeprazole 20 mg capsule,delayed release RxNorm: 186942 1 Capsule(s) Oral every day 11/20/19 20 2019 Inactive amoxicillin 250 mg capsule RxNorm: 298516 1 Capsule(s) Oral three times a day 11/07/19 20 2019 Inactive multivitamin with iron-mineral tablet RxNorm: 1 Tablet(s) Oral every day 10/29/19 20 2021 Inactive cetirizine 10 mg tablet RxNorm: 6880232 1 Tablet(s) PO daily 10/20/19 20 2019 Inactive This refill negates all other refills of this medication. Please do not auto refill Singulair 10 mg tablet RxNorm: 285640 1 Tablet(s) PO daily 10/20/19 20 2019 Inactive This refill negates all other refills of this medication gabapentin 300 mg capsule RxNorm: 645676 1 Capsule(s) PO TID 10/20/19 20 2019 Inactive lisinopril 2.5 mg tablet RxNorm: 193673 1 Tablet(s) PO daily 10/20/19 20 2019 Inactive levothyroxine 50 mcg tablet RxNorm: 935695 1 Tablet(s) PO daily 10/20/19 20 2019 Inactive This refill negates all other refills of this medication fenugreek seed extract 500 mg capsule RxNorm: 1 Capsule(s) Oral three times a day 10/17/19 20 2021 Inactive hydrochlorothiazide 25 mg tablet RxNorm: 579900 1 Tablet(s) Oral every day 10/17/19 20 2019 Inactive Alcohol Prep Pads RxNorm: 353540 1 Patch TOP QAM 10/16/192020 Inactive loperamide 2 mg tablet RxNorm: 828426 1 Tablet(s) Oral as needed take one [...] 09/19/202019 Inactive hydrochlorothiazide 25 mg tablet RxNorm: 098934 1 Tablet(s) Oral every day 09/19/202019 Inactive Sudafed 12 Hour 120 mg tablet,extended release RxNorm: 5328534 1 Tablet(s) Oral every 12 hours as needed 09/11/202018 Inactive omeprazole 20 mg capsule,delayed release RxNorm: 274422 1 Capsule(s) Oral every day 09/07/20 19 2019 Inactive Sudafed 12 Hour 120 mg tablet,extended release RxNorm: 8836941 1 Tablet(s) Oral every 12 hours as needed 09/04/20 19 2018 Inactive pantoprazole 40 mg tablet,delayed release RxNorm: 890284 1 Tablet(s) Oral every day 08/24/20 19 2018 Inactive discontinue any other H2Blkr. and PPI albuterol sulfate 2.5 mg/3 mL (0.083 %) solution for nebulization RxNorm: 952767 1 Vial Inhalation every four hours as needed as needed for dyspnea 08/17/202019 Inactive 60/box. This refill negates all other refills of this medication. Please do not fill early. Please do not auto refill. Symbicort 160 mcg-4.5 mcg/actuation HFA aerosol inhaler RxNorm: 3267664 2 Puff(s) INH BID 08/17/20 No Stop Date Active Alcohol Prep Pads RxNorm: 648668 1 Patch TOP QAM 08/17/202019 Inactive Ventolin HFA 90 mcg/actuation aerosol inhaler RxNorm: 955244 2 Puff(s) INH QID 08/09/202019 Inactive Please do not fill early. Please do not auto refill. This refill negates all other refills of this medication True Metrix Glucose Test Strip RxNorm: 1 Test Strips Miscellaneous QAM 08/09/202019 Inactive 100/container atorvastatin 40 mg tablet RxNorm: 818913 1 Tablet(s) Oral every day 07/04/20 19 2019 Inactive levmetamfetamine 50 mg nasal inhaler RxNorm: 1 Unit(s) NASAL Q3-4H Do not use more than every 3 hours or 8 times/24hours 06/26/20 19 2021 Inactive Please do not auto refill. This refill negates all other refills of this medication buspirone 7.5 mg tablet RxNorm: 887389 1 Tablet(s) PO BID 06/26/20 19 2020 Inactive This refill negates all other refills of this medication hydrochlorothiazide 12.5 mg tablet RxNorm: 022539 1 Tablet(s) PO QAM 06/26/20 19 2019 Inactive Ventolin HFA 90 mcg/actuation aerosol inhaler RxNorm: 524562 2 Puff(s) INH QID 06/26/20 19 2018 Inactive Please do not fill early. Please do not auto refill. This refill negates all other refills of this medication Singulair 10 mg tablet RxNorm: 198077 1 Tablet(s) PO daily 06/26/20 19 2019 Inactive This refill negates all other refills of this medication cetirizine 10 mg tablet RxNorm: 5665817 1 Tablet(s) PO daily 06/26/20 19 2019 Inactive This refill negates all other refills of this medication. Please do not auto refill levothyroxine 50 mcg tablet RxNorm: 850952 1 Tablet(s) PO daily 06/26/20 19 2019 Inactive This refill negates all other refills of this medication diclofenac sodium 75 mg tablet,delayed release RxNorm: 424486 1 Tablet(s) PO BID 06/26/20 19 2019 Inactive This refill negates all other refills of this medication ranitidine 150 mg tablet RxNorm: 408718 1 Tablet(s) PO BID 06/26/20 19 2018 Inactive This refill negates all other refills of this medication Calcium 600-D3 Plus (mag-zinc) 600 mg calcium-800 unit-50 mg tablet RxNorm: 1 Tablet(s) PO daily take an additonal tablet for itching. 06/26/20 19 2018 Inactive This refill negates all other refills of this medication albuterol sulfate 2.5 mg/3 mL (0.083 %) solution for nebulization RxNorm: 278958 1 Vial INH QID 06/26/20 19 2018 Inactive 60/box. This refill negates all other refills of this medication. Please do not fill early. Please do not auto refill. lisinopril 2.5 mg tablet RxNorm: 644697 1 Tablet(s) PO daily 06/21/20 19 2019 Inactive gabapentin 300 mg capsule RxNorm: 844395 1 Capsule(s) PO TID 06/21/20 19 2019 Inactive atorvastatin 20 mg tablet RxNorm: 891114 1 Tablet(s) PO QHS 06/07/20 19 2018 Inactive This refill negates all other refills of this medication TRUEplus Lancets 30 gauge RxNorm: 1 Lancets Miscellaneous QAM 05/29/20 19 2018 Inactive 100/box gabapentin 300 mg capsule RxNorm: 221962 1 Capsule(s) PO TID 05/03/20 19 2018 Inactive Flintstones Complete (iron) 18 mg iron chewable tablet RxNorm: 1 Tablet(s) PO daily 04/04/202021 Inactive This refill negates all other refills of this medication gabapentin 300 mg capsule RxNorm: 973313 1 Capsule(s) PO TID as needed 02/01/202018 Inactive True Metrix Glucose Test Strip RxNorm: 1 Test Strips Miscellaneous QA 02/01/20 19 2018 Inactive 100/container Alcohol Prep Pads RxNorm: 907699 1 Patch TOP QA 02/01/202018 Inactive TRUEplus Lancets 30 gauge RxNorm: 1 Lancets Miscellaneous QA 02/01/20 19 2018 Inactive 100/box lisinopril 2.5 mg tablet RxNorm: 113219 1 Tablet(s) PO daily 12/28/192018 Inactive ranitidine 150 mg tablet RxNorm: 227759 1 Tablet(s) PO BID 10/21/192018 Inactive This refill negates all other refills of this medication albuterol sulfate 2.5 mg/3 mL (0.083 %) solution for nebulization RxNorm: 076680 1 Vial INH QID 10/21/192018 Inactive 60/box. [...] this medication gabapentin 300 mg capsule RxNorm: 984225 1 Capsule(s) PO TID as needed 10/21/19 19 2018 Inactive atorvastatin 20 mg tablet RxNorm: 574570 1 Tablet(s) PO QHS 10/21/19 19 2018 Inactive This refill negates all other refills of this medication trazodone 50 mg tablet RxNorm: 331474 1 Tablet(s) PO QHS 10/21/19 19 2018 Inactive This refill negates all other refills of this medication Ventolin HFA 90 mcg/actuation aerosol inhaler RxNorm: 717518 2 Puff(s) INH QID 10/21/19 19 2018 Inactive Please do not fill early. Please do not auto refill. This refill negates all other refills of this medication Calcium 600-D3 Plus 600 mg calcium-800 unit-50 mg tablet RxNorm: 1 Tablet(s) PO daily take an additonal tablet for itching. 10/21/192018 Inactive This refill negates all other refills of this medication Singulair 10 mg tablet RxNorm: 256434 1 Tablet(s) PO daily 10/21/192018 Inactive This refill negates all other refills of this medication buspirone 7.5 mg tablet RxNorm: 178209 1 Tablet(s) PO BID 10/21/192018 Inactive This refill negates all other refills of this medication diclofenac sodium 75 mg tablet,delayed release RxNorm: 430802 1 Tablet(s) PO BID 10/21/192018 Inactive This refill negates all other refills of this medication hydrochlorothiazide 12.5 mg tablet RxNorm: 422941 1 Tablet(s) PO QAM 10/21/192018 Inactive metoprolol succinate ER 50 mg tablet,extended release 24 hr RxNorm: 068482 1 Tablet(s) PO daily 10/21/19 19 2018 Inactive This refill negates all other refills of this medication levothyroxine 50 mcg tablet RxNorm: 798486 1 Tablet(s) PO daily 10/21/192018 Inactive This refill negates all other refills of this medication cetirizine 10 mg tablet RxNorm: 9763713 1 Tablet(s) PO daily 10/21/19 19 2018 Inactive This refill negates all other refills of this medication. Please do not auto refill Flintstones Complete (iron) 18 mg iron chewable tablet RxNorm: 1 Tablet(s) PO daily 10/21/19 19 2018 Inactive This refill negates all other refills of this medication buspirone 7.5 mg tablet RxNorm: 541099 1 Tablet(s) PO BID 10/12/19 19 2018 Inactive cetirizine 10 mg tablet RxNorm: 7736041 1 Tablet(s) PO daily 09/28/20 18 2018 Inactive Guaiasorb DM 10 mg-100 mg/5 mL oral liquid RxNorm: 567309 10 Milliliter(s) PO As needed every 4 hr 09/24/20 18 2018 Inactive Vicks Vaporub 4.7 %-1.2 %-2.6 % topical ointment RxNorm: 3928479 1 Application TOP TID 09/24/20 18 2018 Inactive levmetamfetamine 50 mg nasal inhaler RxNorm: 1 Unit(s) NASAL Q3-4H 09/24/20 18 2017 Inactive sertraline 50 mg tablet RxNorm: 933138 1 Tablet(s) PO daily 09/09/20 18 2018 Inactive Please note dose trazodone 50 mg tablet RxNorm: 505204 1 Tablet(s) PO QHS 09/06/20 18 2018 Inactive sertraline 50 mg tablet RxNorm: 313096 1 Tablet(s) PO daily 09/06/20 18 2017 Inactive amoxicillin 500 mg tablet RxNorm: 808197 1 Tablet(s) PO Q12H 08/31/20 18 2017 Inactive albuterol sulfate 2.5 mg/3 mL (0.083 %) solution for nebulization RxNorm: 477456 1 Vial INH QID 08/10/20 18 2018 Inactive 60/box. Please do not fill early. Please do not auto refill. Prozac 10 mg capsule RxNorm: 488384 1 Capsule(s) PO daily 08/09/20 18 2017 Inactive buspirone 7.5 mg tablet RxNorm: 821765 1 Tablet(s) PO BID 08/09/20 18 2018 Inactive gabapentin 300 mg capsule RxNorm: 967661 1 Capsule(s) PO TID as needed 08/01/20 18 2018 Inactive hydrochlorothiazide 12.5 mg tablet RxNorm: 933528 1 Tablet(s) PO QAM 08/01/20 18 2018 Inactive ranitidine 150 mg tablet RxNorm: 924941 1 Tablet(s) PO BID 08/01/20 18 2018 Inactive Macrobid 100 mg capsule RxNorm: 973831 1 Capsule(s) PO Q12H 06/21/20 18 2017 Inactive Singulair 10 mg tablet RxNorm: 095603 1 Tablet(s) PO daily 06/14/20 18 2018 Inactive Ventolin HFA 90 mcg/actuation aerosol inhaler RxNorm: 7960843 2 Puff(s) INH QID 06/14/20 18 2018 Inactive Singulair 10 mg tablet RxNorm: 065188 1 Tablet(s) PO daily 06/14/20 18 2017 Inactive buspirone 7.5 mg tablet RxNorm: 094534 1 Tablet(s) PO BID 06/14/20 18 2017 Inactive Prozac 10 mg capsule RxNorm: 182109 1 Capsule(s) PO daily 06/14/20 18 2017 Inactive Neilmed Pediatric Sinus Rinse Refill packet RxNorm: 1 Unit Dose NASAL PRN 05/31/20 18 2021 Inactive diclofenac sodium 75 mg tablet,delayed release RxNorm: 732379 1 Tablet(s) PO BID 05/31/20 18 2017 Inactive lisinopril 2.5 mg tablet RxNorm: 861928 1 Tablet(s) PO daily 05/31/20 18 2017 Inactive metoprolol succinate ER 50 mg tablet,extended release 24 hr RxNorm: 283660 1 Tablet(s) PO daily 05/31/20 18 2017 Inactive levothyroxine 50 mcg tablet RxNorm: 152507 1 Tablet(s) PO daily 05/31/20 18 2017 Inactive TRUEplus Lancets 30 gauge RxNorm: 1 Lancets Miscellaneous QAM 05/31/20 18 2017 Inactive 100/box Ventolin HFA 90 mcg/actuation aerosol inhaler RxNorm: 425787 2 Puff(s) INH QID 05/31/20 18 2017 Inactive Aleve 220 mg capsule RxNorm: 1691058 1 Capsule(s) PO BID 05/31/20 18 2018 Inactive ranitidine 150 mg tablet RxNorm: 711970 1 Tablet(s) PO BID 05/31/20 18 2017 Inactive gabapentin 300 mg capsule RxNorm: 304583 1 Capsule(s) PO TID as needed 05/31/20 18 2017 Inactive atorvastatin 20 mg tablet RxNorm: 440590 1 Tablet(s) PO QHS 05/31/20 18 2017 Inactive True Metrix Glucose Test Strip RxNorm: 1 Test Strips Miscellaneous QAM 05/31/20 18 2017 Inactive 50/container Calcium 600-D3 Plus 600 mg calcium-800 unit-50 mg tablet RxNorm: 1 Tablet(s) PO daily take an additonal tablet for itching. 05/31/20 18 2017 Inactive hydrochlorothiazide 12.5 mg tablet RxNorm: 497116 1 Tablet(s) PO QAM 05/31/20 18 2017 Inactive Flintstones Complete (iron) 18 mg iron chewable tablet RxNorm: 1 Tablet(s) PO daily 05/31/20 18 2017 Inactive d-mannose oral powder RxNorm: PO 18 2021 Inactive True Metrix Glucose Meter RxNorm: miscellaneous 08/17/20 19 2018 Inactive sertraline 50 mg tablet RxNorm: 630467 1 Tablet(s) PO daily 11/28/19 20 2019 Inactive loperamide 2 mg tablet RxNorm: 377963 oral 09/29/20 19 2018 Inactive Symbicort 160 mcg-4.5 mcg/actuation HFA aerosol inhaler RxNorm: 4287694 2 Puff(s) INH BID 08/17/20 19 2018 Inactive Medication Administered No Medication Administered data Procedures Procedure Codes Date Urinalysis, dip stick CPT-4: 56031 09/24/2020 Patient Health Questionnaire CPT-4: DPHQ Electrocardiogram CPT-4: 25789 05/14/2020 Tobacco Assessment/Screening CPT-4: TCA Fall Risk Assessment SNOMED CT: 63818589 4 CPT-4: DFRA01/01/2020Functional AssessmentCPT-4: DFA01/01/2020Semmes Fany AssessmentCPT-4: DSWA11/28/2019Patient Health QuestionnaireCPT-4: DPHQ11/28/2019 Carmichael Fany AssessmentCPT-4: DSWA10/17/2019HypertensionCPT-4: HTN10/17/[address]: 581401127 CPT-4: DFRA09/19/2019Functional AssessmentCPT-4: DFA111/20/2018Urinalysis, dip stickCPT-4: 0356724Tobacco Assessment/ScreeningCPT-4: TCA05/24/2019 Patient Health QuestionnaireCPT-4: DPHQ05/24/2019AHA/REBECCA Classification AssessmentCPT-4: DAHA04/25/2019Controlled Substance ReportCPT-4: CTRSU04/25/2019 Urinalysis, dip stickCPT-4: 986609603/28/2019Urinalysis, dip stickCPT-4: 50379 03/28/20193296E1D-KndvddsbblgnmamJFU-7: 41923XqxmcqoT4R-QrlbcdtjxxphpezRRZ-8: 18944 VvxjdeqN2K-VkatnlfpgaoqmgoZBY-2: 98811UjvhumzI7V-CfzdvvycmkgdaswVYI-7: 15641 JokgowbI1P-TvpjozmvogwkyfbWVB-4: 42336QemhqboXmsvhtjfrn ReferralSNOMED CT: 377745143 CPT-4: C25Jilmwbs Reason For Visit No Reason For Visit data Plan of Care Planned Activity Notes Codes Status Date Patient Education: Patient Medication Summary Fzpkrzvnu48/11/2021ppointment: Anna Culver WPtel: [phone] [place] [address] [id number]/25/2019Appointment: Anna Culver WPtel: [phone] [place] [address] USETV110/26/2019Appointment: Anna Culver WPtel: [phone] [place] [address] USETV110/19/2019Appointment: Anna Culver WPtel: [phone] [place] [address] [id number]: Anna Culver WPtel: [address] [place] [address] [id number]: Gianna Birmingham MCt: [facility]5 [facility] 100 [id number]: Anna Culver WPtel: [address] [place] [address] [id number]: Anna Culver WPtel: [address] [place] [address] [id number]: Anna Culver WPtel: [phone] [place] [address] [id number]: Anna Culver WPtel: [phone] [place] [address] [id number]: Anna Culver WPtel: [phone] [place] [address] [id number]: Anna Culver WPtel: [address] [place] [address] [id number]: PalomoVamsiAnna WPtel: [phone] [facility] [address] [place] [address] [id number]: PalomoVamsiAnna WPtel: [address] [place] [address] [id number]: Anna Culver WPtel: [address] [place] [address] [id number]: PalomoVamsiAnna WPtel: [address] [place] [address] [id number]: Sudha Hernadez WPtel: [address] [place] [address] [address] [id number]: Sudha Hernadez WPtel: [address] [facility] [address] [id number]: XavierCharlene goncalves WPtel: [address] [facility] [id number]: Enedelia Delgado45Appointment: Charlene Oropeza WPtel: [address] [facility] [address] [id number]: Javy, Rasta WPtel: [address] [facility] [address] [id number]: Loreleit, Rasta WPtel: [address] [facility] [address] [id number]: Javy, Rasta WPtel: [address] [facility] [address] [id number]: Rasta Palafox WPtel: [address] [facility] [address] [id number]: Pending Gynecology Referral InformationReferral ProcessedReferral: Pending Pulmonology Referral InformationReferralProcessed Referral: Pending Psychiatry Referral InformationReferralInitiatedReferral: Pending Respiratory Services Referral InformationReferralInitiatedReferral: Pending Ophthalmology Referral InformationReferralInitiatedReferral: [facility] WPtel: [address] [facility] [address] [facility] USWriter placed a call out to the patient to notify her that it has been recommended that she be seenby a urologist. Patient agreed to be seen, does not have a provider of choice and no transportationissues. [employer] faxed referral and clinical notes to [facility] in [place], [place] near the patient's home. Patient to [...] seen and prefers a provider in the [place] or [facility]. [employer] placed a call out to everyone listed in the area and the only location that was able to accept the patient's insurance was [place] [address] [place] [address] and spoke with Maylin. Maylin asked that the patient's referral, face sheet and visit notes be faxed to . [employer] faxed over requested documents. Patient appointment confirmation letter generated and mailed to her home address. Patient to call to schedule an appointment.ProcessedReferral: [facility] WPtel: [address] [place] [address] [address] [id number] USPatient notified that it has been advised that she be seen by Neurology. Patient agreed to be seen and prefers to be seen by a provider in the [place], [place] area. Patient denies any concerns with transportation, and prefers to schedule her own appointment. [employer] placed a call out to [facility] and spoke with Neeraj P: who confirmed that their office is able to acceptnew patients and the patient's insurance. After confirming the providers fax number, consumer loan underwriter faxed over the patient's referral, [...]
--- OUTSIDE RECORDS SUMMARY | 2023-12-07 02:14 | XMS_ITS | CCD ---
Author Name Leena Culver NP Address [address] [place] [address] [place] [address] Phone Organization [employer] [facility] Phone Care Team Providers Care Learning Coordinator Name Role Phone Anna Culver NP Primary Care Provider Unav ailable Unavailable Chronic Care Management Unavaila ble Summary Purpose DataExchange Insurance Providers Payer name Policy type / Coverage type Covered republican ID Effective Begin Date Effective End Date SUKI MAYO [id number] Unknown Unknown Family history Mother Diagnosis Age [...] 05/31/2018 Education level Unknown Some High School 10th05/31/20182472DpgqrdttpiGvabyhjQjsbrmleac91/29/2018Tobacco historySNOMED CT: 147946229Iqn never smoked or chewed dxftdmt9005/31/2018Alcohol historySNOMED CT: 495292222Zagbm drinks pdpjizl2505/31/2018Has the patient ever used illegal drugs? UnknownHas never used illegal drugs05/31/2018DNR Order/ Advanced Directive UnknownFull Code05/31/2018 Allergies, Adverse Reactions, Alerts Substance Reaction Codes Entered Date Inactivated Date Status *No known food allergies Yqzyoix4609/06/2018No Inactive DateActiveMethylprednisolonehivesRxNorm: 6902 09/06/2018No Inactive DateActive Problems Condition Codes Effective Dates Condition St atus Adjustment disorder with mixed anxiety a nd depressed mood ICD-10: F43.23 ICD-9: 309.28111/06/2017ActiveChronic kidney disease, stage 2 (mild)ICD-10: N18.2 ICD-9: 585.2011ActiveEssential (primary) hypertensionICD-10: I10 ICD-9: 401.901ActiveGERD (gastroesophageal reflux disease)ICD-10: K21.9 ICD-9: 530.8112ActiveHistory of surgery on right wristICD-10: Z98.890 ICD-9: V45.8901/1ActiveRight wrist painICD-10: M25.531 ICD-9: 719.4308/09/2020ActiveType 2 diabetes mellitus with peripheral neuropathy ICD-10: E11.42 ICD-9: 250.6002/ActiveUrinary tract infectionICD-10: N39.0 ICD-9: 599.012ActiveAbnormal urine findingICD-10: [...] ICD-9: V03.907/ActivePatient Not SeenICD-10: UXZ.01 ICD-9: XZ0.107ActiveOther residential (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ICD-10: Z79.899 ICD-9: V58.6907/ActiveChest pain, [...] Status Fill Instructions Alcohol Prep Pads RxNorm: 579455 USE EACH MORNING 10/14/19 21 2020 Inactive omeprazole 20 mg capsule,delayed release RxNorm: 462312 1 Capsule(s) Oral two times a day 10/13/19 21 2021 Inactive omeprazole 20 mg capsule,delayed release RxNorm: 263022 TAKE 1 CAPSULE BY MOUTH EVERY DAY 10/08/19 21 2021 Inactive Macrobid 100 mg capsule RxNorm: 055699 1 Capsule(s) Oral every 12 hours with food 10/01/20 20 2020 Inactive omeprazole 20 mg capsule,delayed release RxNorm: 646825 1 Capsule(s) Oral two times a day 09/24/20 20 2021 Inactive metformin 1,000 mg tablet RxNorm: 098416 1 Tablet(s) Oral two times a day 08/19/20 20 2020 Inactive start on September 11, 2020 metformin 500 mg tablet RxNorm: 554913 1 Tablet(s) Oral two times a day take with 500mg to equal 1000mg 08/19/20 20 2019 Inactive gabapentin 300 mg capsule RxNorm: 606857 TAKE 1 CAPSULE BY MOUTH THREE TIMES DAILY 07/11/20 20 2020 Inactive cetirizine 10 mg tablet RxNorm: 8127491 TAKE (1) TABLET BY MOUTH DAILY 07/11/20 20 2020 Inactive metformin 500 mg tablet RxNorm: 208482 1 Tablet(s) Oral two times a day 07/08/20 20 2019 Inactive loperamide 2 mg tablet RxNorm: 005046 1 Tablet(s) Oral as needed take one tablet after each loose stool, maximum of 8 tablets in 24 hours 06/24/20 20 2021 Inactive Sudafed 12 Hour 120 mg tablet,extended release RxNorm: 9720351 TAKE 1 TABLET BY MOUTH EVERY 12 HOURS NEEDED 06/11/20 20 2019 Inactive hydrochlorothiazide 25 mg tablet RxNorm: 071956 TAKE (1) TABLET BY MOUTH EVERY DAY 06/11/20 20 2019 Inactive omeprazole 20 mg capsule,delayed release RxNorm: 178960 TAKE 1 CAPSULE BY MOUTH EVERY DAY 05/14/202020 Inactive metformin 500 mg tablet RxNorm: 627916 1 Tablet(s) Oral every day 05/12/202019 Inactive True Metrix Glucose Test Strip RxNorm: 1 Test Strips Miscellaneous two times a day as needed 04/17/20 No Stop Date Active metformin 500 mg tablet RxNorm: 861112 1 Tablet(s) Oral every day 04/17/20 20 2019 Inactive diclofenac sodium 75 mg tablet,delayed release RxNorm: 220326 1 Tablet(s) PO BID 04/14/20 20 2021 Inactive This refill negates all other refills of this medication Sudafed 12 Hour 120 mg tablet,extended release RxNorm: 2338158 TAKE 1 TABLET BY MOUTH EVERY 12 HOURS NEEDED 03/14/20 20 2019 Inactive True Metrix Glucose Test Strip RxNorm: 1 Test Strips Miscellaneous every morning 03/13/20 20 2019 Inactive 100/container True Metrix Glucose Test Strip RxNorm: 1 Test Strips Miscellaneous QAM 02/22/20 20 2019 Inactive 100/container loperamide 2 mg tablet RxNorm: 142728 1 Tablet(s) Oral as needed take one tablet after each loose stool, maximum of 8 tablets in 24 hours 02/22/20 20 2019 Inactive levothyroxine 50 mcg tablet RxNorm: 927705 1 Tablet(s) PO daily 01/17/20 20 2020 Inactive cetirizine 10 mg tablet RxNorm: 0506748 1 Tablet(s) PO daily 01/17/20 20 2019 Inactive loperamide 2 mg tablet RxNorm: 596453 1 Tablet(s) Oral as needed take one tablet after each loose stool, maximum of 8 tablets in 24 hours 01/17/20 20 2019 Inactive quetiapine 100 mg tablet RxNorm: 042716 1 Tablet(s) Oral every night at bedtime 01/17/20 20 2019 Inactive gabapentin 300 mg capsule RxNorm: 300977 1 Capsule(s) PO TID 01/17/20 20 2019 Inactive lisinopril 2.5 mg tablet RxNorm: 977185 1 Tablet(s) PO daily 01/15/20 20 2020 Inactive Singulair 10 mg tablet RxNorm: 441950 1 Tablet(s) PO daily 01/15/20 20 2020 Inactive levothyroxine 50 mcg tablet RxNorm: 054564 1 Tablet(s) PO daily 01/15/20 20 2019 Inactive gabapentin 300 mg capsule RxNorm: 540635 1 Capsule(s) PO TID 01/15/20 20 2019 Inactive cetirizine 10 mg tablet RxNorm: 6000965 1 Tablet(s) PO daily 01/15/20 20 2019 Inactive gentamicin 0.3 % eye drops RxNorm: 363636 1 Drop(s) ophthalmic (eye) four times a day 12/29/19 20 2019 Inactive gentamicin 0.3 % eye drops RxNorm: 038999 1 Drop(s) ophthalmic (eye) four times a day 12/29/19 20 2019 Inactive gentamicin 0.3 % eye drops RxNorm: 397394 1 Drop(s) ophthalmic (eye) four times a day 12/29/19 20 2019 Inactive hydrochlorothiazide 25 mg tablet RxNorm: 902932 1 Tablet(s) Oral every day 12/21/19 20 2019 Inactive Sudafed 12 Hour 120 mg tablet,extended release RxNorm: 6788718 TAKE (1) TABLET BY MOUTH EVERY 12 HOURS NEEDED 12/21/19 20 2019 Inactive loperamide 2 mg tablet RxNorm: 517295 1 Tablet(s) Oral as needed take one tablet after each loose stool, maximum of 8 tablets in 24 hours 12/11/19 20 2019 Inactive loperamide 2 mg tablet RxNorm: 453981 1 Tablet(s) Oral as needed take one tablet after each loose stool, maximum of 8 tablets in 24 hours 12/11/19 20 2019 Inactive atorvastatin 40 mg tablet RxNorm: 885738 1 Tablet(s) Oral every day 11/29/19 20 2020 Inactive quetiapine 100 mg tablet RxNorm: 792900 1 Tablet(s) Oral every night at bedtime 11/28/19 20 2019 Inactive sertraline 100 mg tablet RxNorm: 172355 1 Tablet(s) Oral 11/28/19 20 2019 Inactive omeprazole 20 mg capsule,delayed release RxNorm: 414873 1 Capsule(s) Oral every day 11/20/19 20 2019 Inactive amoxicillin 250 mg capsule RxNorm: 407041 1 Capsule(s) Oral three times a day 11/07/19 20 2019 Inactive multivitamin with iron-mineral tablet RxNorm: 1 Tablet(s) Oral every day 10/29/19 20 2021 Inactive cetirizine 10 mg tablet RxNorm: 7612849 1 Tablet(s) PO daily 10/20/19 20 2019 Inactive This refill negates all other refills of this medication. Please do not auto refill Singulair 10 mg tablet RxNorm: 414268 1 Tablet(s) PO daily 10/20/19 20 2019 Inactive This refill negates all other refills of this medication gabapentin 300 mg capsule RxNorm: 926967 1 Capsule(s) PO TID 10/20/19 20 2019 Inactive lisinopril 2.5 mg tablet RxNorm: 623234 1 Tablet(s) PO daily 10/20/19 20 2019 Inactive levothyroxine 50 mcg tablet RxNorm: 524751 1 Tablet(s) PO daily 10/20/19 20 2019 Inactive This refill negates all other refills of this medication fenugreek seed extract 500 mg capsule RxNorm: 1 Capsule(s) Oral three times a day 10/17/19 20 2021 Inactive hydrochlorothiazide 25 mg tablet RxNorm: 151452 1 Tablet(s) Oral every day 10/17/192019 Inactive Alcohol Prep Pads RxNorm: 786011 1 Patch TOP QAM 10/16/19 20 2020 Inactive loperamide 2 mg tablet RxNorm: 245735 1 Tablet(s) Oral as needed take one [...] 09/19/202019 Inactive hydrochlorothiazide 25 mg tablet RxNorm: 246247 1 Tablet(s) Oral every day 09/19/202019 Inactive Sudafed 12 Hour 120 mg tablet,extended release RxNorm: 5997260 1 Tablet(s) Oral every 12 hours as needed 09/11/20 2018 Inactive omeprazole 20 mg capsule,delayed release RxNorm: 124036 1 Capsule(s) Oral every day 09/07/20 19 2019 Inactive Sudafed 12 Hour 120 mg tablet,extended release RxNorm: 7394997 1 Tablet(s) Oral every 12 hours as needed 09/04/20 19 2018 Inactive pantoprazole 40 mg tablet,delayed release RxNorm: 072366 1 Tablet(s) Oral every day 08/24/20 19 2018 Inactive discontinue any other H2Blkr. and PPI albuterol sulfate 2.5 mg/3 mL (0.083 %) solution for nebulization RxNorm: 723289 1 Vial Inhalation every four hours as needed as needed for dyspnea 08/17/20 19 2019 Inactive 60/box. This refill negates all other refills of this medication. Please do not fill early. Please do not auto refill. Symbicort 160 mcg-4.5 mcg/actuation HFA aerosol inhaler RxNorm: 0104792 2 Puff(s) INH BID 08/17/20 19 No Stop Date Active Alcohol Prep Pads RxNorm: 694319 1 Patch TOP QAM 08/17/20 19 2019 Inactive Ventolin HFA 90 mcg/actuation aerosol inhaler RxNorm: 291243 2 Puff(s) INH QID 08/09/20 19 2019 Inactive Please do not fill early. Please do not auto refill. This refill negates all other refills of this medication True Metrix Glucose Test Strip RxNorm: 1 Test Strips Miscellaneous QAM 08/09/20 19 2019 Inactive 100/container atorvastatin 40 mg tablet RxNorm: 150273 1 Tablet(s) Oral every day 07/04/20 19 2019 Inactive levmetamfetamine 50 mg nasal inhaler RxNorm: 1 Unit(s) NASAL Q3-4H Do not use more than every 3 hours or 8 times/24hours 06/26/20 19 2021 Inactive Please do not auto refill. This refill negates all other refills of this medication buspirone 7.5 mg tablet RxNorm: 633594 1 Tablet(s) PO BID 06/26/20 19 2020 Inactive This refill negates all other refills of this medication hydrochlorothiazide 12.5 mg tablet RxNorm: 847727 1 Tablet(s) PO QAM 06/26/20 19 2019 Inactive Ventolin HFA 90 mcg/actuation aerosol inhaler RxNorm: 555954 2 Puff(s) INH QID 06/26/20 19 2018 Inactive Please do not fill early. Please do not auto refill. This refill negates all other refills of this medication Singulair 10 mg tablet RxNorm: 383259 1 Tablet(s) PO daily 06/26/20 19 2019 Inactive This refill negates all other refills of this medication cetirizine 10 mg tablet RxNorm: 4851215 1 Tablet(s) PO daily 06/26/20 19 2019 Inactive This refill negates all other refills of this medication. Please do not auto refill levothyroxine 50 mcg tablet RxNorm: 956023 1 Tablet(s) PO daily 06/26/20 19 2019 Inactive This refill negates all other refills of this medication diclofenac sodium 75 mg tablet,delayed release RxNorm: 567062 1 Tablet(s) PO BID 06/26/20 19 2019 Inactive This refill negates all other refills of this medication ranitidine 150 mg tablet RxNorm: 762000 1 Tablet(s) PO BID 06/26/20 19 2018 Inactive This refill negates all other refills of this medication Calcium 600-D3 Plus (mag-zinc) 600 mg calcium-800 unit-50 mg tablet RxNorm: 1 Tablet(s) PO daily take an additonal tablet for itching. 06/26/20 19 2018 Inactive This refill negates all other refills of this medication albuterol sulfate 2.5 mg/3 mL (0.083 %) solution for nebulization RxNorm: 549618 1 Vial INH QID 06/26/20 19 2018 Inactive 60/box. This refill negates all other refills of this medication. Please do not fill early. Please do not auto refill. lisinopril 2.5 mg tablet RxNorm: 225736 1 Tablet(s) PO daily 06/21/20 19 2019 Inactive gabapentin 300 mg capsule RxNorm: 727923 1 Capsule(s) PO TID 06/21/20 19 2019 Inactive atorvastatin 20 mg tablet RxNorm: 129867 1 Tablet(s) PO QHS 06/07/20 19 2018 Inactive This refill negates all other refills of this medication TRUEplus Lancets 30 gauge RxNorm: 1 Lancets Miscellaneous QAM 05/29/20 19 2018 Inactive 100/box gabapentin 300 mg capsule RxNorm: 123992 1 Capsule(s) PO TID 05/03/20 19 2018 Inactive Flintstones Complete (iron) 18 mg iron chewable tablet RxNorm: 1 Tablet(s) PO daily 04/04/20 19 2021 Inactive This refill negates all other refills of this medication gabapentin 300 mg capsule RxNorm: 000468 1 Capsule(s) PO TID as needed 02/01/20 19 2018 Inactive True Metrix Glucose Test Strip RxNorm: 1 Test Strips Miscellaneous QA 02/01/20 19 2018 Inactive 100/container Alcohol Prep Pads RxNorm: 292269 1 Patch TOP QA 02/01/20 19 2018 Inactive TRUEplus Lancets 30 gauge RxNorm: 1 Lancets Miscellaneous QA 02/01/20 19 2018 Inactive 100/box lisinopril 2.5 mg tablet RxNorm: 839031 1 Tablet(s) PO daily 12/28/19 19 2018 Inactive ranitidine 150 mg tablet RxNorm: 541051 1 Tablet(s) PO BID 10/21/192018 Inactive This refill negates all other refills of this medication albuterol sulfate 2.5 mg/3 mL (0.083 %) solution for nebulization RxNorm: 961117 1 Vial INH QID 10/21/192018 Inactive 60/box. [...] this medication gabapentin 300 mg capsule RxNorm: 189466 1 Capsule(s) PO TID as needed 10/21/192018 Inactive atorvastatin 20 mg tablet RxNorm: 501814 1 Tablet(s) PO QHS 10/21/192018 Inactive This refill negates all other refills of this medication trazodone 50 mg tablet RxNorm: 857140 1 Tablet(s) PO QHS 10/21/192018 Inactive This refill negates all other refills of this medication Ventolin HFA 90 mcg/actuation aerosol inhaler RxNorm: 258178 2 Puff(s) INH QID 10/21/192018 Inactive Please do not fill early. Please do not auto refill. This refill negates all other refills of this medication Calcium 600-D3 Plus 600 mg calcium-800 unit-50 mg tablet RxNorm: 1 Tablet(s) PO daily take an additonal tablet for itching. 10/21/192018 Inactive This refill negates all other refills of this medication Singulair 10 mg tablet RxNorm: 484850 1 Tablet(s) PO daily 10/21/192018 Inactive This refill negates all other refills of this medication buspirone 7.5 mg tablet RxNorm: 944452 1 Tablet(s) PO BID 10/21/192018 Inactive This refill negates all other refills of this medication diclofenac sodium 75 mg tablet,delayed release RxNorm: 479383 1 Tablet(s) PO BID 10/21/19 19 2018 Inactive This refill negates all other refills of this medication hydrochlorothiazide 12.5 mg tablet RxNorm: 575156 1 Tablet(s) PO QAM 10/21/192018 Inactive metoprolol succinate ER 50 mg tablet,extended release 24 hr RxNorm: 768508 1 Tablet(s) PO daily 10/21/19 19 2018 Inactive This refill negates all other refills of this medication levothyroxine 50 mcg tablet RxNorm: 718320 1 Tablet(s) PO daily 10/21/19 19 2018 Inactive This refill negates all other refills of this medication cetirizine 10 mg tablet RxNorm: 5542742 1 Tablet(s) PO daily 10/21/19 19 2018 Inactive This refill negates all other refills of this medication. Please do not auto refill Flintstones Complete (iron) 18 mg iron chewable tablet RxNorm: 1 Tablet(s) PO daily 10/21/192018 Inactive This refill negates all other refills of this medication buspirone 7.5 mg tablet RxNorm: 851904 1 Tablet(s) PO BID 10/12/192018 Inactive cetirizine 10 mg tablet RxNorm: 4890792 1 Tablet(s) PO daily 09/28/20 18 2018 Inactive Guaiasorb DM 10 mg-100 mg/5 mL oral liquid RxNorm: 793715 10 Milliliter(s) PO As needed every 4 hr 09/24/20 18 2018 Inactive Vicks Vaporub 4.7 %-1.2 %-2.6 % topical ointment RxNorm: 9602975 1 Application TOP TID 09/24/20 18 2018 Inactive levmetamfetamine 50 mg nasal inhaler RxNorm: 1 Unit(s) NASAL Q3-4H 09/24/20 18 2017 Inactive sertraline 50 mg tablet RxNorm: 265880 1 Tablet(s) PO daily 09/09/20 18 2018 Inactive Please note dose trazodone 50 mg tablet RxNorm: 396697 1 Tablet(s) PO QHS 09/06/20 18 2018 Inactive sertraline 50 mg tablet RxNorm: 834998 1 Tablet(s) PO daily 09/06/20 18 2017 Inactive amoxicillin 500 mg tablet RxNorm: 764854 1 Tablet(s) PO Q12H 08/31/20 18 2017 Inactive albuterol sulfate 2.5 mg/3 mL (0.083 %) solution for nebulization RxNorm: 707623 1 Vial INH QID 08/10/20 18 2018 Inactive 60/box. Please do not fill early. Please do not auto refill. Prozac 10 mg capsule RxNorm: 439713 1 Capsule(s) PO daily 08/09/20 18 2017 Inactive buspirone 7.5 mg tablet RxNorm: 499843 1 Tablet(s) PO BID 08/09/20 18 2018 Inactive gabapentin 300 mg capsule RxNorm: 291608 1 Capsule(s) PO TID as needed 08/01/20 18 2018 Inactive hydrochlorothiazide 12.5 mg tablet RxNorm: 410561 1 Tablet(s) PO QAM 08/01/20 18 2018 Inactive ranitidine 150 mg tablet RxNorm: 382988 1 Tablet(s) PO BID 08/01/20 18 2018 Inactive Macrobid 100 mg capsule RxNorm: 736426 1 Capsule(s) PO Q12H 06/21/20 18 2017 Inactive Singulair 10 mg tablet RxNorm: 987442 1 Tablet(s) PO daily 06/14/20 18 2018 Inactive Ventolin HFA 90 mcg/actuation aerosol inhaler RxNorm: 8361998 2 Puff(s) INH QID 06/14/20 18 2018 Inactive Singulair 10 mg tablet RxNorm: 497542 1 Tablet(s) PO daily 06/14/20 18 2017 Inactive buspirone 7.5 mg tablet RxNorm: 423862 1 Tablet(s) PO BID 06/14/20 18 2017 Inactive Prozac 10 mg capsule RxNorm: 188389 1 Capsule(s) PO daily 06/14/20 18 2017 Inactive Neilmed Pediatric Sinus Rinse Refill packet RxNorm: 1 Unit Dose NASAL PRN 05/31/20 18 2021 Inactive diclofenac sodium 75 mg tablet,delayed release RxNorm: 995328 1 Tablet(s) PO BID 05/31/20 18 2017 Inactive lisinopril 2.5 mg tablet RxNorm: 744117 1 Tablet(s) PO daily 05/31/20 18 2017 Inactive metoprolol succinate ER 50 mg tablet,extended release 24 hr RxNorm: 221176 1 Tablet(s) PO daily 05/31/20 18 2017 Inactive levothyroxine 50 mcg tablet RxNorm: 319841 1 Tablet(s) PO daily 05/31/20 18 2017 Inactive TRUEplus Lancets 30 gauge RxNorm: 1 Lancets Miscellaneous QAM 05/31/20 18 2017 Inactive 100/box Ventolin HFA 90 mcg/actuation aerosol inhaler RxNorm: 210356 2 Puff(s) INH QID 05/31/20 18 2017 Inactive Aleve 220 mg capsule RxNorm: 1078717 1 Capsule(s) PO BID 05/31/20 18 2018 Inactive ranitidine 150 mg tablet RxNorm: 886806 1 Tablet(s) PO BID 05/31/20 18 2017 Inactive gabapentin 300 mg capsule RxNorm: 515666 1 Capsule(s) PO TID as needed 05/31/20 18 2017 Inactive atorvastatin 20 mg tablet RxNorm: 929882 1 Tablet(s) PO QHS 05/31/20 18 2017 Inactive True Metrix Glucose Test Strip RxNorm: 1 Test Strips Miscellaneous QAM 05/31/20 18 2017 Inactive 50/container Calcium 600-D3 Plus 600 mg calcium-800 unit-50 mg tablet RxNorm: 1 Tablet(s) PO daily take an additonal tablet for itching. 05/31/20 18 2017 Inactive hydrochlorothiazide 12.5 mg tablet RxNorm: 942655 1 Tablet(s) PO QAM 05/31/20 18 2017 Inactive Flintstones Complete (iron) 18 mg iron chewable tablet RxNorm: 1 Tablet(s) PO daily 05/31/20 18 2017 Inactive d-mannose oral powder RxNorm: PO 18 2021 Inactive True Metrix Glucose Meter RxNorm: miscellaneous 08/17/20 19 2018 Inactive sertraline 50 mg tablet RxNorm: 531748 1 Tablet(s) PO daily 11/28/19 20 2019 Inactive loperamide 2 mg tablet RxNorm: 401012 oral 09/29/20 19 2018 Inactive Symbicort 160 mcg-4.5 mcg/actuation HFA aerosol inhaler RxNorm: 9481455 2 Puff(s) INH BID 08/17/20 19 2018 Inactive Medication Administered No Medication Administered data Results Observation Observation Code Item Item Code Result Date S ervice Location No Orders No Orders No Orders 0 11/01/2020 [facility] [address] [place] [address] Procedures Procedure Codes Date Urinalysis, dip stick CPT-4: 09216 09/24/2020 Patient Health Questionnaire CPT-4: DPHQ Electrocardiogram CPT-4: 00575 05/14/2020 Tobacco Assessment/Screening CPT-4: TCA [facility] CPT-4: DFRA01/01/2020Functional AssessmentCPT-4: DFA01/01/2020Semmes Fany AssessmentCPT-4: DSWA11/28/2019Patient Health QuestionnaireCPT-4: DPHQ11/28/2019 [place] Fany AssessmentCPT-4: DSWA10/17/2019HypertensionCPT-4: HTN10/17/2019 [facility] CPT-4: DFRA09/19/2019Functional AssessmentCPT-4: DFA111/20/2018Urinalysis, dip stickCPT-4: 614285006/21/2019Tobacco Assessment/ScreeningCPT-4: TCA05/24/2019 Patient Health QuestionnaireCPT-4: DPHQ05/24/2019AHA/REBECCA Classification AssessmentCPT-4: DAHA04/25/2019Controlled Substance ReportCPT-4: CTRSU04/25/2019 Urinalysis, dip stickCPT-4: 264705303/28/2019Urinalysis, dip stickCPT-4: 30003 06/26/7009T1N-BmmztxngmhncagtXHX-7: 55874BxapiyoS8D-FgxwsxsczlaupluKDJ-6: 00602 OcefhoxY1M-OejcfmouuggifjdTFC-7: 18923MvqzncjR4Q-WbafgbygadoorzpVVF-9: 64885 EutjdoeF2F-CwjonvlunaplgcpYGH-1: 86516UcyiaykH3R-YpgfonwcnegomipQID-5: 02639 UnknownGynecology [facility]: 663879685 CPT-4: H52Cdwjlnb Reason For Visit No Reason For Visit data Plan of Care Planned Activity Notes Codes Status Date Appointment: Ruth Culver WPtel: [address] [place] [address] [id number]/25/2019Appointment: Anna Culver WPtel: [address] [place] [address] USETV110/26/2019Appointment: Anna Culver WPtel: [address] [place] [address] USETV110/19/2019Appointment: Anna Culver WPtel: [address] [place] [address] [id number]: Anna Culver WPtel: [address] [place] [address] [id number]: Gianna Birmingham [facility]: [address] [facility] [address] [id number]: Anna Culver WPtel: [address] [place] [address] [id number]: Anna Culver WPtel: [address] [place] [address] [id number]: Anna Culver WPtel: [address] [place], [place] [id number]: Anna Culver WPtel: [phone] [place] [address] [id number]: Anna Culver WPtel: [phone] [place] [address] [id number]: Anna Culver WPtel: [phone] [place] [address] [id number]: Anna Culver WPtel: [address] [place] [address] [id number]: Anna Culver WPtel: [phone] [place] [address] [id number]: Anna Culver WPtel: [address] [place] [address] [id number]: Anna Culver WPtel: [address] [place] [address] [id number]/20/2018Appointment: Sudha Hernadez WPtel: [facility] [id number]: Sudha Hernadez WPtel: [address] [facility] [id number]: Charlene Oropeza WPtel: [address] [facility] [address] [id number]: Enedelia [id number]: Charlene Oropeza WPtel: [address] [facility] [address] [id number]: Rasta Palafox WPtel: [address] [facility] [address] [id number]: Rasta Palafox WPtel: [address] [facility] [address] [id number]: Rasta Palafox WPtel: [address] [facility] [address] [id number]: Rasta Palafox WPtel: [address] [facility] [address] [id number]: Pending Gynecology Referral InformationReferral ProcessedReferral: Pending Pulmonology Referral InformationReferralProcessed Referral: Pending Psychiatry Referral InformationReferralInitiatedReferral: Pending Respiratory Services Referral InformationReferralInitiatedReferral: Pending Ophthalmology Referral InformationReferralInitiatedReferral: [facility] WPtel: [address] [place] [address] [address] [address] USWriter placed a call out to the patient to notify her that it has been recommended that she be seenby a urologist. Patient agreed to be seen, does not have a provider of choice and no transportationissues. Post Production Assistant faxed referral and clinical notes to [facility] in [place], [place] near the patient's home. Patient to [...] seen and prefers a provider in the [place] or [facility]. Post Production Assistant placed a call out to everyone listed in the area and the only location that was able to accept the patient's insurance was [place] [address] [place] [address] and spoke with Maylin. Maylin asked that the patient's referral, face sheet and visit notes be faxed to . Post Production Assistant faxed over requested documents. Patient appointment confirmation letter generated and mailed to her home address. Patient to call to schedule an appointment.ProcessedReferral: [facility] WPtel: [address] [id number] USPatient notified that it has been advised that she be seen by Neurology. Patient agreed to be seen and prefers to be seen by a provider in the [place], [place] area. Patient denies any concerns with transportation, and prefers to schedule her own appointment. Post Production Assistant placed a call out to [facility] and spoke with Neeraj P: who confirmed that their office is able to acceptnew patients and the patient's insurance. After confirming the providers fax number, health technical writer faxed over the patient's referral, [...]
--- OUTSIDE RECORDS SUMMARY | 2023-12-07 02:14 | XMS_ITS | CCD ---
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 Livestock Producer Name Role Phone Palomo KING, Anna Primary Care Provider Unav ailable Unavailable Chronic Care Management Unavaila ble Summary Purpose DataExchange Insurance Providers Payer name Policy type / Coverage type Covered democrat ID Effective Begin Date Effective End Date SUKI MAYO [id number] Unknown Unknown Family history Mother Diagnosis Age [...] 05/31/2018 Education level Unknown Some High School 10th05/31/20181046YxfulxqficTsopbgvGmwpipdcog69/29/2018Tobacco historySNOMED CT: 975750569Ukg never smoked or chewed hkegokt1105/31/2018Alcohol historySNOMED CT: 136601563Mmsru drinks mgfbsts8205/31/2018Has the patient ever used illegal drugs? UnknownHas never used illegal drugs05/31/2018DNR Order/ Advanced Directive UnknownFull Code05/31/2018 Allergies, Adverse Reactions, Alerts Substance Reaction Codes Entered Date Inactivated Date Status *No known food allergies Wvhcxtr6709/06/2018No Inactive DateActiveMethylprednisolonehivesRxNorm: 6902 09/06/2018No Inactive DateActive Problems [...] 787.6003/ActiveMixed incontinenceICD-10: N39.46 ICD-9: 788.3308ActiveDiarrheaICD-10: R19.7 ICD-9: 787.9112ActiveType 2 diabetes mellitus without complicationsICD- 10: E11.9 ICD-9: 250.0001ActiveSinusitisICD-10: J32.9 ICD-9: 473.902ActiveAsthmaICD-10: J45.909 ICD-9: 493.9011ActiveAcute upper respiratory infection, unspecifiedICD- 10: J06.9 ICD-9: 465.912ActiveApnea, not elsewhere classifiedICD-10: R06.81 ICD-9: 786.0305ActiveEncounter for immunizationICD-10: Z23 ICD-9: V03.907/ActivePatient Not SeenICD-10: UXZ.01 ICD-9: XZ0.107ActiveOther board finisher (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ICD-10: Z79.899 ICD-9: V58.6907ActiveChest pain, [...] Instructions omeprazole 20 mg capsule,delayed release RxNorm: 031274 TAKE 1 CAPSULE BY MOUTH EVERY DAY 10/08/192021 Inactive Macrobid 100 mg capsule RxNorm: 386590 1 Capsule(s) Oral every 12 hours with food 10/01/20 20 2020 Inactive omeprazole 20 mg capsule,delayed release RxNorm: 011051 1 Capsule(s) Oral two times a day 09/24/20 20 2021 Inactive metformin 1,000 mg tablet RxNorm: 637424 1 Tablet(s) Oral two times a day 08/19/20 20 2020 Inactive start on September 11, 2020 metformin 500 mg tablet RxNorm: 966814 1 Tablet(s) Oral two times a day take with 500mg to equal 1000mg 08/19/20 20 2019 Inactive gabapentin 300 mg capsule RxNorm: 745891 TAKE 1 CAPSULE BY MOUTH THREE TIMES DAILY 07/11/20 20 2020 Inactive cetirizine 10 mg tablet RxNorm: 9103874 TAKE (1) TABLET BY MOUTH DAILY 07/11/20 20 2020 Inactive metformin 500 mg tablet RxNorm: 612450 1 Tablet(s) Oral two times a day 07/08/20 20 2019 Inactive loperamide 2 mg tablet RxNorm: 535835 1 Tablet(s) Oral as needed take one tablet after each loose stool, maximum of 8 tablets in 24 hours 06/24/20 20 2021 Inactive Sudafed 12 Hour 120 mg tablet,extended release RxNorm: 8038999 TAKE 1 TABLET BY MOUTH EVERY 12 HOURS NEEDED 06/11/20 20 2019 Inactive hydrochlorothiazide 25 mg tablet RxNorm: 825182 TAKE (1) TABLET BY MOUTH EVERY DAY 06/11/20 20 2019 Inactive omeprazole 20 mg capsule,delayed release RxNorm: 208901 TAKE 1 CAPSULE BY MOUTH EVERY DAY 05/14/20 20 2020 Inactive metformin 500 mg tablet RxNorm: 238001 1 Tablet(s) Oral every day 05/12/20 20 2019 Inactive True Metrix Glucose Test Strip RxNorm: 1 Test Strips Miscellaneous two times a day as needed 04/17/20 No Stop Date Active metformin 500 mg tablet RxNorm: 365065 1 Tablet(s) Oral every day 04/17/20 20 2019 Inactive diclofenac sodium 75 mg tablet,delayed release RxNorm: 121838 1 Tablet(s) PO BID 04/14/20 20 2021 Inactive This refill negates all other refills of this medication Sudafed 12 Hour 120 mg tablet,extended release RxNorm: 0790346 TAKE 1 TABLET BY MOUTH EVERY 12 HOURS NEEDED 03/14/20 20 2019 Inactive True Metrix Glucose Test Strip RxNorm: 1 Test Strips Miscellaneous every morning 03/13/20 20 2019 Inactive 100/container True Metrix Glucose Test Strip RxNorm: 1 Test Strips Miscellaneous QAM 02/22/20 20 2019 Inactive 100/container loperamide 2 mg tablet RxNorm: 167554 1 Tablet(s) Oral as needed take one tablet after each loose stool, maximum of 8 tablets in 24 hours 02/22/20 20 2019 Inactive levothyroxine 50 mcg tablet RxNorm: 846033 1 Tablet(s) PO daily 01/17/20 20 2020 Inactive cetirizine 10 mg tablet RxNorm: 5673069 1 Tablet(s) PO daily 01/17/20 20 2019 Inactive loperamide 2 mg tablet RxNorm: 173129 1 Tablet(s) Oral as needed take one tablet after each loose stool, maximum of 8 tablets in 24 hours 01/17/20 20 2019 Inactive quetiapine 100 mg tablet RxNorm: 393162 1 Tablet(s) Oral every night at bedtime 01/17/20 20 2019 Inactive gabapentin 300 mg capsule RxNorm: 731777 1 Capsule(s) PO TID 01/17/20 20 2019 Inactive lisinopril 2.5 mg tablet RxNorm: 487591 1 Tablet(s) PO daily 01/15/20 20 2020 Inactive Singulair 10 mg tablet RxNorm: 069786 1 Tablet(s) PO daily 01/15/20 20 2020 Inactive levothyroxine 50 mcg tablet RxNorm: 453696 1 Tablet(s) PO daily 01/15/20 20 2019 Inactive gabapentin 300 mg capsule RxNorm: 614856 1 Capsule(s) PO TID 01/15/20 20 2019 Inactive cetirizine 10 mg tablet RxNorm: 9220590 1 Tablet(s) PO daily 01/15/20 20 2019 Inactive gentamicin 0.3 % eye drops RxNorm: 698597 1 Drop(s) ophthalmic (eye) four times a day 12/29/19 20 2019 Inactive gentamicin 0.3 % eye drops RxNorm: 605864 1 Drop(s) ophthalmic (eye) four times a day 12/29/19 20 2019 Inactive gentamicin 0.3 % eye drops RxNorm: 511920 1 Drop(s) ophthalmic (eye) four times a day 12/29/19 20 2019 Inactive hydrochlorothiazide 25 mg tablet RxNorm: 199123 1 Tablet(s) Oral every day 12/21/19 20 2019 Inactive Sudafed 12 Hour 120 mg tablet,extended release RxNorm: 7671826 TAKE (1) TABLET BY MOUTH EVERY 12 HOURS NEEDED 12/21/19 20 2019 Inactive loperamide 2 mg tablet RxNorm: 575530 1 Tablet(s) Oral as needed take one tablet after each loose stool, maximum of 8 tablets in 24 hours 12/11/19 20 2019 Inactive loperamide 2 mg tablet RxNorm: 329050 1 Tablet(s) Oral as needed take one tablet after each loose stool, maximum of 8 tablets in 24 hours 12/11/19 20 2019 Inactive atorvastatin 40 mg tablet RxNorm: 427614 1 Tablet(s) Oral every day 11/29/19 20 2020 Inactive quetiapine 100 mg tablet RxNorm: 520472 1 Tablet(s) Oral every night at bedtime 11/28/19 20 2019 Inactive sertraline 100 mg tablet RxNorm: 292168 1 Tablet(s) Oral 11/28/19 20 2019 Inactive omeprazole 20 mg capsule,delayed release RxNorm: 806395 1 Capsule(s) Oral every day 11/20/19 20 2019 Inactive amoxicillin 250 mg capsule RxNorm: 016849 1 Capsule(s) Oral three times a day 11/07/19 20 2019 Inactive multivitamin with iron-mineral tablet RxNorm: 1 Tablet(s) Oral every day 10/29/19 20 2021 Inactive cetirizine 10 mg tablet RxNorm: 7957223 1 Tablet(s) PO daily 10/20/19 20 2019 Inactive This refill negates all other refills of this medication. Please do not auto refill Singulair 10 mg tablet RxNorm: 009187 1 Tablet(s) PO daily 10/20/19 20 2019 Inactive This refill negates all other refills of this medication gabapentin 300 mg capsule RxNorm: 454526 1 Capsule(s) PO TID 10/20/19 20 2019 Inactive lisinopril 2.5 mg tablet RxNorm: 246751 1 Tablet(s) PO daily 10/20/19 20 2019 Inactive levothyroxine 50 mcg tablet RxNorm: 129527 1 Tablet(s) PO daily 10/20/19 20 2019 Inactive This refill negates all other refills of this medication fenugreek seed extract 500 mg capsule RxNorm: 1 Capsule(s) Oral three times a day 10/17/19 20 2021 Inactive hydrochlorothiazide 25 mg tablet RxNorm: 724581 1 Tablet(s) Oral every day 10/17/19 20 2019 Inactive Alcohol Prep Pads RxNorm: 640414 1 Patch TOP QAM 10/16/19 20 2020 Inactive loperamide 2 mg tablet RxNorm: 675626 1 Tablet(s) Oral as needed take one [...] 2019 Inactive hydrochlorothiazide 25 mg tablet RxNorm: 075809 1 Tablet(s) Oral every day 09/19/202019 Inactive Sudafed 12 Hour 120 mg tablet,extended release RxNorm: 4930569 1 Tablet(s) Oral every 12 hours as needed 09/11/20 19 2018 Inactive omeprazole 20 mg capsule,delayed release RxNorm: 300762 1 Capsule(s) Oral every day 09/07/20 19 2019 Inactive Sudafed 12 Hour 120 mg tablet,extended release RxNorm: 8202162 1 Tablet(s) Oral every 12 hours as needed 09/04/20 19 2018 Inactive pantoprazole 40 mg tablet,delayed release RxNorm: 987282 1 Tablet(s) Oral every day 08/24/20 19 2018 Inactive discontinue any other H2Blkr. and PPI albuterol sulfate 2.5 mg/3 mL (0.083 %) solution for nebulization RxNorm: 489806 1 Vial Inhalation every four hours as needed as needed for dyspnea 08/17/20 19 2019 Inactive 60/box. This refill negates all other refills of this medication. Please do not fill early. Please do not auto refill. Symbicort 160 mcg-4.5 mcg/actuation HFA aerosol inhaler RxNorm: 0428844 2 Puff(s) INH BID 08/17/20 19 No Stop Date Active Alcohol Prep Pads RxNorm: 842709 1 Patch TOP QAM 08/17/20 19 2019 Inactive Ventolin HFA 90 mcg/actuation aerosol inhaler RxNorm: 743287 2 Puff(s) INH QID 08/09/20 19 2019 Inactive Please do not fill early. Please do not auto refill. This refill negates all other refills of this medication True Metrix Glucose Test Strip RxNorm: 1 Test Strips Miscellaneous QAM 08/09/20 19 2019 Inactive 100/container atorvastatin 40 mg tablet RxNorm: 971414 1 Tablet(s) Oral every day 07/04/20 19 2019 Inactive levmetamfetamine 50 mg nasal inhaler RxNorm: 1 Unit(s) NASAL Q3-4H Do not use more than every 3 hours or 8 times/24hours 06/26/20 19 2021 Inactive Please do not auto refill. This refill negates all other refills of this medication buspirone 7.5 mg tablet RxNorm: 668374 1 Tablet(s) PO BID 06/26/20 19 2020 Inactive This refill negates all other refills of this medication hydrochlorothiazide 12.5 mg tablet RxNorm: 265991 1 Tablet(s) PO QAM 06/26/20 19 2019 Inactive Ventolin HFA 90 mcg/actuation aerosol inhaler RxNorm: 834879 2 Puff(s) INH QID 06/26/20 19 2018 Inactive Please do not fill early. Please do not auto refill. This refill negates all other refills of this medication Singulair 10 mg tablet RxNorm: 174849 1 Tablet(s) PO daily 06/26/20 19 2019 Inactive This refill negates all other refills of this medication cetirizine 10 mg tablet RxNorm: 9602157 1 Tablet(s) PO daily 06/26/20 19 2019 Inactive This refill negates all other refills of this medication. Please do not auto refill levothyroxine 50 mcg tablet RxNorm: 968126 1 Tablet(s) PO daily 06/26/20 19 2019 Inactive This refill negates all other refills of this medication diclofenac sodium 75 mg tablet,delayed release RxNorm: 497233 1 Tablet(s) PO BID 06/26/20 19 2019 Inactive This refill negates all other refills of this medication ranitidine 150 mg tablet RxNorm: 310911 1 Tablet(s) PO BID 06/26/20 19 2018 Inactive This refill negates all other refills of this medication Calcium 600-D3 Plus (mag-zinc) 600 mg calcium-800 unit-50 mg tablet RxNorm: 1 Tablet(s) PO daily take an additonal tablet for itching. 06/26/20 19 2018 Inactive This refill negates all other refills of this medication albuterol sulfate 2.5 mg/3 mL (0.083 %) solution for nebulization RxNorm: 690846 1 Vial INH QID 06/26/20 19 2018 Inactive 60/box. This refill negates all other refills of this medication. Please do not fill early. Please do not auto refill. lisinopril 2.5 mg tablet RxNorm: 106429 1 Tablet(s) PO daily 06/21/20 19 2019 Inactive gabapentin 300 mg capsule RxNorm: 994148 1 Capsule(s) PO TID 06/21/20 19 2019 Inactive atorvastatin 20 mg tablet RxNorm: 461912 1 Tablet(s) PO QHS 06/07/202018 Inactive This refill negates all other refills of this medication TRUEplus Lancets 30 gauge RxNorm: 1 Lancets Miscellaneous QAM 05/29/20 19 2018 Inactive 100/box gabapentin 300 mg capsule RxNorm: 392711 1 Capsule(s) PO TID 08/01/2018 Inactive César Beckett (iron) 18 mg iron chewable tablet RxNorm: 1 Tablet(s) PO daily 04/04/202021 Inactive This refill negates all other refills of this medication gabapentin 300 mg capsule RxNorm: 836956 1 Capsule(s) PO TID as needed 02/01/202018 Inactive True Metrix Glucose Test Strip RxNorm: 1 Test Strips Miscellaneous QA 02/01/20 19 2018 Inactive 100/container Alcohol Prep Pads RxNorm: 958036 1 Patch TOP QAM 02/01/20 19 2018 Inactive TRUEplus Lancets 30 gauge RxNorm: 1 Lancets Miscellaneous QAM 02/01/202018 Inactive 100/box lisinopril 2.5 mg tablet RxNorm: 932521 1 Tablet(s) PO daily 12/28/192018 Inactive ranitidine 150 mg tablet RxNorm: 564658 1 Tablet(s) PO BID 10/21/192018 Inactive This refill negates all other refills of this medication albuterol sulfate 2.5 mg/3 mL (0.083 %) solution for nebulization RxNorm: 102304 1 Vial INH QID 10/21/192018 Inactive 60/box. [...] this medication gabapentin 300 mg capsule RxNorm: 224362 1 Capsule(s) PO TID as needed 10/21/192018 Inactive atorvastatin 20 mg tablet RxNorm: 996783 1 Tablet(s) PO QHS 10/21/192018 Inactive This refill negates all other refills of this medication trazodone 50 mg tablet RxNorm: 626876 1 Tablet(s) PO QHS 10/21/19 19 2018 Inactive This refill negates all other refills of this medication Ventolin HFA 90 mcg/actuation aerosol inhaler RxNorm: 330441 2 Puff(s) INH QID 10/21/19 19 2018 Inactive Please do not fill early. Please do not auto refill. This refill negates all other refills of this medication Calcium 600-D3 Plus 600 mg calcium-800 unit-50 mg tablet RxNorm: 1 Tablet(s) PO daily take an additonal tablet for itching. 10/21/192018 Inactive This refill negates all other refills of this medication Singulair 10 mg tablet RxNorm: 997651 1 Tablet(s) PO daily 10/21/192018 Inactive This refill negates all other refills of this medication buspirone 7.5 mg tablet RxNorm: 459195 1 Tablet(s) PO BID 10/21/192018 Inactive This refill negates all other refills of this medication diclofenac sodium 75 mg tablet,delayed release RxNorm: 887772 1 Tablet(s) PO BID 10/21/19 19 2018 Inactive This refill negates all other refills of this medication hydrochlorothiazide 12.5 mg tablet RxNorm: 706596 1 Tablet(s) PO QAM 10/21/192018 Inactive metoprolol succinate ER 50 mg tablet,extended release 24 hr RxNorm: 922060 1 Tablet(s) PO daily 10/21/192018 Inactive This refill negates all other refills of this medication levothyroxine 50 mcg tablet RxNorm: 939411 1 Tablet(s) PO daily 10/21/192018 Inactive This refill negates all other refills of this medication cetirizine 10 mg tablet RxNorm: 5551398 1 Tablet(s) PO daily 10/21/192018 Inactive This refill negates all other refills of this medication. Please do not auto refill Flintstones Complete (iron) 18 mg iron chewable tablet RxNorm: 1 Tablet(s) PO daily 10/21/192018 Inactive This refill negates all other refills of this medication buspirone 7.5 mg tablet RxNorm: 461095 1 Tablet(s) PO BID 10/12/19 19 2018 Inactive cetirizine 10 mg tablet RxNorm: 4032779 1 Tablet(s) PO daily 09/28/20 18 2018 Inactive Guaiasorb DM 10 mg-100 mg/5 mL oral liquid RxNorm: 148773 10 Milliliter(s) PO As needed every 4 hr 09/24/20 18 2018 Inactive Vicks Vaporub 4.7 %-1.2 %-2.6 % topical ointment RxNorm: 6861498 1 Application TOP TID 09/24/20 18 2018 Inactive levmetamfetamine 50 mg nasal inhaler RxNorm: 1 Unit(s) NASAL Q3-4H 09/24/20 18 2017 Inactive sertraline 50 mg tablet RxNorm: 086001 1 Tablet(s) PO daily 09/09/20 18 2018 Inactive Please note dose trazodone 50 mg tablet RxNorm: 534218 1 Tablet(s) PO QHS 09/06/20 18 2018 Inactive sertraline 50 mg tablet RxNorm: 019156 1 Tablet(s) PO daily 09/06/20 18 2017 Inactive amoxicillin 500 mg tablet RxNorm: 379746 1 Tablet(s) PO Q12H 08/31/20 18 2017 Inactive albuterol sulfate 2.5 mg/3 mL (0.083 %) solution for nebulization RxNorm: 704272 1 Vial INH QID 08/10/20 18 2018 Inactive 60/box. Please do not fill early. Please do not auto refill. Prozac 10 mg capsule RxNorm: 026513 1 Capsule(s) PO daily 08/09/20 18 2017 Inactive buspirone 7.5 mg tablet RxNorm: 446740 1 Tablet(s) PO BID 08/09/20 18 2018 Inactive gabapentin 300 mg capsule RxNorm: 174096 1 Capsule(s) PO TID as needed 08/01/20 18 2018 Inactive hydrochlorothiazide 12.5 mg tablet RxNorm: 286592 1 Tablet(s) PO QAM 08/01/20 18 2018 Inactive ranitidine 150 mg tablet RxNorm: 559744 1 Tablet(s) PO BID 08/01/20 18 2018 Inactive Macrobid 100 mg capsule RxNorm: 820512 1 Capsule(s) PO Q12H 06/21/20 18 2017 Inactive Singulair 10 mg tablet RxNorm: 349406 1 Tablet(s) PO daily 06/14/20 18 2018 Inactive Ventolin HFA 90 mcg/actuation aerosol inhaler RxNorm: 9291567 2 Puff(s) INH QID 06/14/20 18 2018 Inactive Singulair 10 mg tablet RxNorm: 207020 1 Tablet(s) PO daily 06/14/20 18 2017 Inactive buspirone 7.5 mg tablet RxNorm: 932658 1 Tablet(s) PO BID 06/14/20 18 2017 Inactive Prozac 10 mg capsule RxNorm: 863796 1 Capsule(s) PO daily 06/14/20 18 2017 Inactive Neilmed Pediatric Sinus Rinse Refill packet RxNorm: 1 Unit Dose NASAL PRN 05/31/20 18 2021 Inactive diclofenac sodium 75 mg tablet,delayed release RxNorm: 445769 1 Tablet(s) PO BID 05/31/20 18 2017 Inactive lisinopril 2.5 mg tablet RxNorm: 175428 1 Tablet(s) PO daily 05/31/20 18 2017 Inactive metoprolol succinate ER 50 mg tablet,extended release 24 hr RxNorm: 870890 1 Tablet(s) PO daily 05/31/20 18 2017 Inactive levothyroxine 50 mcg tablet RxNorm: 746714 1 Tablet(s) PO daily 05/31/20 18 2017 Inactive TRUEplus Lancets 30 gauge RxNorm: 1 Lancets Miscellaneous QAM 05/31/20 18 2017 Inactive 100/box Ventolin HFA 90 mcg/actuation aerosol inhaler RxNorm: 439253 2 Puff(s) INH QID 05/31/20 18 2017 Inactive Aleve 220 mg capsule RxNorm: 9113118 1 Capsule(s) PO BID 05/31/20 18 2018 Inactive ranitidine 150 mg tablet RxNorm: 807636 1 Tablet(s) PO BID 05/31/20 18 2017 Inactive gabapentin 300 mg capsule RxNorm: 007330 1 Capsule(s) PO TID as needed 05/31/20 18 2017 Inactive atorvastatin 20 mg tablet RxNorm: 318261 1 Tablet(s) PO QHS 05/31/20 18 2017 Inactive True Metrix Glucose Test Strip RxNorm: 1 [facility]ps [facility] 05/31/20 18 2017 Inactive 50/container Calcium 600-D3 Plus 600 mg calcium-800 unit-50 mg tablet RxNorm: 1 Tablet(s) PO daily take an additonal tablet for itching. 05/31/20 18 2017 Inactive hydrochlorothiazide 12.5 mg tablet RxNorm: 906286 1 Tablet(s) PO QAM 05/31/20 18 2017 Inactive Flintstones Complete (iron) 18 mg iron chewable tablet RxNorm: 1 Tablet(s) PO daily 05/31/20 18 2017 Inactive d-mannose oral powder RxNorm: PO 18 2021 Inactive True Metrix Glucose Meter RxNorm: miscellaneous 08/17/20 19 2018 Inactive sertraline 50 mg tablet RxNorm: 761585 1 Tablet(s) PO daily 11/28/19 20 2019 Inactive loperamide 2 mg tablet RxNorm: 381181 oral 09/29/20 19 2018 Inactive Symbicort 160 mcg-4.5 mcg/actuation HFA aerosol inhaler RxNorm: 3241330 2 Puff(s) INH BID 08/17/20 19 2018 Inactive Medication Administered No Medication Administered data Procedures Procedure Codes Date Urinalysis, dip stick CPT-4: 04073 09/24/2020 Patient Health Questionnaire CPT-4: DPHQ Electrocardiogram CPT-4: 09481 05/14/2020 Tobacco Assessment/Screening CPT-4: TCA Fall Risk Assessment SNOMED CT: 04159485 4 CPT-4: DFRA01/01/2020Functional AssessmentCPT-4: DFA01/01/2020Semmes Fany AssessmentCPT-4: DSWA11/28/2019Patient Health QuestionnaireCPT-4: DPHQ11/28/2019 Tyler Fany AssessmentCPT-4: DSWA10/17/2019HypertensionCPT-4: HTN10/17/[address]: 346093990 CPT-4: DFRA09/19/2019Functional AssessmentCPT-4: DFA111/20/2018Urinalysis, dip stickCPT-4: 3992789Tobacco Assessment/ScreeningCPT-4: TCA05/24/2019 Patient Health QuestionnaireCPT-4: DPHQ05/24/2019AHA/REBECCA Classification AssessmentCPT-4: DAHA04/25/2019Controlled Substance ReportCPT-4: CTRSU04/25/2019 Urinalysis, dip stickCPT-4: 6882158Urinalysis, dip stickCPT-4: 05466 03/28/20190596A0O-DjuslfylnqxzfqkOFI-7: 95378UqizmchU8W-GzdywjhiycehupiXEK-0: 12627 BraorqaM2D-HzrvmgobgfkumgdGSX-7: 35906ClvugecT6N-ZhkzaobnjyttdkgQMH-9: 92101 OofepxhA3A-YfxmokodlocsngiLPT-8: 56830PirprgsWdcdpueedj ReferralSNOMED CT: 592676249 CPT-4: S51Brjzygu Reason For Visit No Reason For Visit data Plan of Care Planned Activity Notes Codes Status Date Referral: Pending Gynecology Referral Informatio n Referral ProcessedReferral: Pending Pulmonology Referral InformationReferralProcessed Referral: Pending Psychiatry Referral InformationReferralInitiatedReferral: Pending Respiratory Services Referral InformationReferralInitiatedReferral: Pending Ophthalmology Referral InformationReferralInitiatedReferral: [facility] WPtel: [address] [place] USWriter placed a call out to the patient to notify her that it has been recommended that she be seenby a urologist. Patient agreed to be seen, does not have a provider of choice and no transportationissues. Gym Supervisor faxed referral and clinical notes to [facility] in [place], [place] near the patient's home. Patient to [...] seen and prefers a provider in the [place] or [place] area. Gym Supervisor placed a call out to everyone listed in the area and the only location that was able to accept the patient's insurance was [address] [id number] and spoke with Maylin. Maylin asked that the patient's referral, face sheet and visit notes be faxed to . Gym Supervisor faxed over requested documents. Patient appointment confirmation letter generated and mailed to her home address. Patient to call to schedule an appointment.ProcessedReferral: [facility] WPtel: [address] [facility] [address] [place], [place] [id number] USPatient notified that it has been advised that she be seen by Neurology. Patient agreed to be seen and prefers to be seen by a provider in the [place], [place] area. Patient denies any concerns with transportation, and prefers to schedule her own appointment. Gym Supervisor placed a call out to [facility] and spoke with Neeraj [...]
--- OUTSIDE RECORDS SUMMARY | 2023-12-07 02:14 | XMS_ITS | CCD ---
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 Name Role Phone Anna Culver NP Primary Care Provider Unav ailable Unavailable Chronic Care Management Unavaila ble Summary Purpose DataExchange Insurance Providers Payer name Policy type / Coverage type Covered alliance party ID Effective Begin Date Effective End Date SUKI MAYO [id number] Unknown Unknown Family history Mother Diagnosis Age [...] 05/31/2018 Education level Unknown Some High School 10th05/31/20182459FqynowhnhxObwrrooWaenrwmrgh55/29/2018Tobacco historySNOMED CT: [id number] never smoked or chewed towxqwd8405/31/2018Alcohol historySNOMED CT: 415136363Lhywi drinks eijtftm2905/31/2018Has the patient ever used illegal drugs? UnknownHas never used illegal drugs05/31/2018DNR Order/ Advanced Directive UnknownFull Code05/31/2018 Allergies, Adverse Reactions, Alerts Substance Reaction Codes Entered Date Inactivated Date Status *No known food allergies Dyzzdhb3509/06/2018No Inactive DateActiveMethylprednisolonehivesRxNorm: 6902 09/06/2018No Inactive DateActive Problems [...] ICD-9: V03.907/ActivePatient Not SeenICD-10: UXZ.01 ICD-9: XZ0.107ActiveOther longterm (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ICD-10: Z79.899 ICD-9: V58.6907/ActiveChest pain, [...] Status Fill Instructions Alcohol Prep Pads RxNorm: 222843 USE EACH MORNING 10/14/19 21 2020 Inactive omeprazole 20 mg capsule,delayed release RxNorm: 631028 1 Capsule(s) Oral two times a day 10/13/19 21 2021 Inactive omeprazole 20 mg capsule,delayed release RxNorm: 420844 TAKE 1 CAPSULE BY MOUTH EVERY DAY 10/08/19 21 2021 Inactive Macrobid 100 mg capsule RxNorm: 715028 1 Capsule(s) Oral every 12 hours with food 10/01/20 20 2020 Inactive omeprazole 20 mg capsule,delayed release RxNorm: 762568 1 Capsule(s) Oral two times a day 09/24/20 20 2021 Inactive metformin 1,000 mg tablet RxNorm: 606487 1 Tablet(s) Oral two times a day 08/19/20 20 2020 Inactive start on September 11, 2020 metformin 500 mg tablet RxNorm: 107903 1 Tablet(s) Oral two times a day take with 500mg to equal 1000mg 08/19/20 20 2019 Inactive gabapentin 300 mg capsule RxNorm: 006918 TAKE 1 CAPSULE BY MOUTH THREE TIMES DAILY 07/11/20 20 2020 Inactive cetirizine 10 mg tablet RxNorm: 9938722 TAKE (1) TABLET BY MOUTH DAILY 07/11/20 20 2020 Inactive metformin 500 mg tablet RxNorm: 686450 1 Tablet(s) Oral two times a day 07/08/20 20 2019 Inactive loperamide 2 mg tablet RxNorm: 710067 1 Tablet(s) Oral as needed take one tablet after each loose stool, maximum of 8 tablets in 24 hours 06/24/20 20 2021 Inactive Sudafed 12 Hour 120 mg tablet,extended release RxNorm: 5153736 TAKE 1 TABLET BY MOUTH EVERY 12 HOURS NEEDED 06/11/20 20 2019 Inactive hydrochlorothiazide 25 mg tablet RxNorm: 499250 TAKE (1) TABLET BY MOUTH EVERY DAY 06/11/20 20 2019 Inactive omeprazole 20 mg capsule,delayed release RxNorm: 825488 TAKE 1 CAPSULE BY MOUTH EVERY DAY 05/14/202020 Inactive metformin 500 mg tablet RxNorm: 697283 1 Tablet(s) Oral every day 05/12/202019 Inactive True Metrix Glucose Test Strip RxNorm: 1 Test Strips Miscellaneous two times a day as needed 04/17/20 No Stop Date Active metformin 500 mg tablet RxNorm: 450784 1 Tablet(s) Oral every day 04/17/20 20 2019 Inactive diclofenac sodium 75 mg tablet,delayed release RxNorm: 828424 1 Tablet(s) PO BID 04/14/20 20 2021 Inactive This refill negates all other refills of this medication Sudafed 12 Hour 120 mg tablet,extended release RxNorm: 2602500 TAKE 1 TABLET BY MOUTH EVERY 12 HOURS NEEDED 03/14/20 20 2019 Inactive True Metrix Glucose Test Strip RxNorm: 1 Test Strips Miscellaneous every morning 03/13/20 20 2019 Inactive 100/container True Metrix Glucose Test Strip RxNorm: 1 Test Strips Miscellaneous QAM 02/22/20 20 2019 Inactive 100/container loperamide 2 mg tablet RxNorm: 469747 1 Tablet(s) Oral as needed take one tablet after each loose stool, maximum of 8 tablets in 24 hours 02/22/20 20 2019 Inactive levothyroxine 50 mcg tablet RxNorm: 725023 1 Tablet(s) PO daily 01/17/20 20 2020 Inactive cetirizine 10 mg tablet RxNorm: 2806674 1 Tablet(s) PO daily 01/17/20 20 2019 Inactive loperamide 2 mg tablet RxNorm: 036198 1 Tablet(s) Oral as needed take one tablet after each loose stool, maximum of 8 tablets in 24 hours 01/17/20 20 2019 Inactive quetiapine 100 mg tablet RxNorm: 811121 1 Tablet(s) Oral every night at bedtime 01/17/20 20 2019 Inactive gabapentin 300 mg capsule RxNorm: 907316 1 Capsule(s) PO TID 01/17/20 20 2019 Inactive lisinopril 2.5 mg tablet RxNorm: 964761 1 Tablet(s) PO daily 01/15/20 20 2020 Inactive Singulair 10 mg tablet RxNorm: 144543 1 Tablet(s) PO daily 01/15/20 20 2020 Inactive levothyroxine 50 mcg tablet RxNorm: 884014 1 Tablet(s) PO daily 01/15/20 20 2019 Inactive gabapentin 300 mg capsule RxNorm: 891279 1 Capsule(s) PO TID 01/15/20 20 2019 Inactive cetirizine 10 mg tablet RxNorm: 1855948 1 Tablet(s) PO daily 01/15/20 20 2019 Inactive gentamicin 0.3 % eye drops RxNorm: 123054 1 Drop(s) ophthalmic (eye) four times a day 12/29/19 20 2019 Inactive gentamicin 0.3 % eye drops RxNorm: 003257 1 Drop(s) ophthalmic (eye) four times a day 12/29/19 20 2019 Inactive gentamicin 0.3 % eye drops RxNorm: 523328 1 Drop(s) ophthalmic (eye) four times a day 12/29/19 20 2019 Inactive hydrochlorothiazide 25 mg tablet RxNorm: 740314 1 Tablet(s) Oral every day 12/21/19 20 2019 Inactive Sudafed 12 Hour 120 mg tablet,extended release RxNorm: 2560742 TAKE (1) TABLET BY MOUTH EVERY 12 HOURS NEEDED 12/21/19 20 2019 Inactive loperamide 2 mg tablet RxNorm: 486350 1 Tablet(s) Oral as needed take one tablet after each loose stool, maximum of 8 tablets in 24 hours 12/11/19 20 2019 Inactive loperamide 2 mg tablet RxNorm: 619595 1 Tablet(s) Oral as needed take one tablet after each loose stool, maximum of 8 tablets in 24 hours 12/11/19 20 2019 Inactive atorvastatin 40 mg tablet RxNorm: 538663 1 Tablet(s) Oral every day 11/29/19 20 2020 Inactive quetiapine 100 mg tablet RxNorm: 558560 1 Tablet(s) Oral every night at bedtime 11/28/19 20 2019 Inactive sertraline 100 mg tablet RxNorm: 842035 1 Tablet(s) Oral 11/28/19 20 2019 Inactive omeprazole 20 mg capsule,delayed release RxNorm: 394624 1 Capsule(s) Oral every day 11/20/19 20 2019 Inactive amoxicillin 250 mg capsule RxNorm: 579577 1 Capsule(s) Oral three times a day 11/07/19 20 2019 Inactive multivitamin with iron-mineral tablet RxNorm: 1 Tablet(s) Oral every day 10/29/19 20 2021 Inactive cetirizine 10 mg tablet RxNorm: 7407562 1 Tablet(s) PO daily 10/20/19 20 2019 Inactive This refill negates all other refills of this medication. Please do not auto refill Singulair 10 mg tablet RxNorm: 009095 1 Tablet(s) PO daily 10/20/19 20 2019 Inactive This refill negates all other refills of this medication gabapentin 300 mg capsule RxNorm: 139180 1 Capsule(s) PO TID 10/20/19 20 2019 Inactive lisinopril 2.5 mg tablet RxNorm: 302737 1 Tablet(s) PO daily 10/20/19 20 2019 Inactive levothyroxine 50 mcg tablet RxNorm: 570023 1 Tablet(s) PO daily 10/20/19 20 2019 Inactive This refill negates all other refills of this medication fenugreek seed extract 500 mg capsule RxNorm: 1 Capsule(s) Oral three times a day 10/17/19 20 2021 Inactive hydrochlorothiazide 25 mg tablet RxNorm: 646527 1 Tablet(s) Oral every day 10/17/192019 Inactive Alcohol Prep Pads RxNorm: 102766 1 Patch TOP QAM 10/16/19 20 2020 Inactive loperamide 2 mg tablet RxNorm: 549762 1 Tablet(s) Oral as needed take one [...] 09/19/202019 Inactive hydrochlorothiazide 25 mg tablet RxNorm: 667489 1 Tablet(s) Oral every day 09/19/202019 Inactive Sudafed 12 Hour 120 mg tablet,extended release RxNorm: 0562143 1 Tablet(s) Oral every 12 hours as needed 09/11/20 2018 Inactive omeprazole 20 mg capsule,delayed release RxNorm: 990418 1 Capsule(s) Oral every day 09/07/20 19 2019 Inactive Sudafed 12 Hour 120 mg tablet,extended release RxNorm: 3427867 1 Tablet(s) Oral every 12 hours as needed 09/04/20 19 2018 Inactive pantoprazole 40 mg tablet,delayed release RxNorm: 171315 1 Tablet(s) Oral every day 08/24/20 19 2018 Inactive discontinue any other H2Blkr. and PPI albuterol sulfate 2.5 mg/3 mL (0.083 %) solution for nebulization RxNorm: 896966 1 Vial Inhalation every four hours as needed as needed for dyspnea 08/17/20 19 2019 Inactive 60/box. This refill negates all other refills of this medication. Please do not fill early. Please do not auto refill. Symbicort 160 mcg-4.5 mcg/actuation HFA aerosol inhaler RxNorm: 7297156 2 Puff(s) INH BID 08/17/20 19 No Stop Date Active Alcohol Prep Pads RxNorm: 957546 1 Patch TOP QAM 08/17/20 19 2019 Inactive Ventolin HFA 90 mcg/actuation aerosol inhaler RxNorm: 584580 2 Puff(s) INH QID 08/09/20 19 2019 Inactive Please do not fill early. Please do not auto refill. This refill negates all other refills of this medication True Metrix Glucose Test Strip RxNorm: 1 Test Strips Miscellaneous QAM 08/09/20 19 2019 Inactive 100/container atorvastatin 40 mg tablet RxNorm: 040885 1 Tablet(s) Oral every day 07/04/20 19 2019 Inactive levmetamfetamine 50 mg nasal inhaler RxNorm: 1 Unit(s) NASAL Q3-4H Do not use more than every 3 hours or 8 times/24hours 06/26/20 19 2021 Inactive Please do not auto refill. This refill negates all other refills of this medication buspirone 7.5 mg tablet RxNorm: 741399 1 Tablet(s) PO BID 06/26/20 19 2020 Inactive This refill negates all other refills of this medication hydrochlorothiazide 12.5 mg tablet RxNorm: 349618 1 Tablet(s) PO QAM 06/26/20 19 2019 Inactive Ventolin HFA 90 mcg/actuation aerosol inhaler RxNorm: 607928 2 Puff(s) INH QID 06/26/20 19 2018 Inactive Please do not fill early. Please do not auto refill. This refill negates all other refills of this medication Singulair 10 mg tablet RxNorm: 662984 1 Tablet(s) PO daily 06/26/20 19 2019 Inactive This refill negates all other refills of this medication cetirizine 10 mg tablet RxNorm: 7606786 1 Tablet(s) PO daily 06/26/20 19 2019 Inactive This refill negates all other refills of this medication. Please do not auto refill levothyroxine 50 mcg tablet RxNorm: 659912 1 Tablet(s) PO daily 06/26/20 19 2019 Inactive This refill negates all other refills of this medication diclofenac sodium 75 mg tablet,delayed release RxNorm: 893147 1 Tablet(s) PO BID 06/26/20 19 2019 Inactive This refill negates all other refills of this medication ranitidine 150 mg tablet RxNorm: 568359 1 Tablet(s) PO BID 06/26/20 19 2018 Inactive This refill negates all other refills of this medication Calcium 600-D3 Plus (mag-zinc) 600 mg calcium-800 unit-50 mg tablet RxNorm: 1 Tablet(s) PO daily take an additonal tablet for itching. 06/26/20 19 2018 Inactive This refill negates all other refills of this medication albuterol sulfate 2.5 mg/3 mL (0.083 %) solution for nebulization RxNorm: 506941 1 Vial INH QID 06/26/20 19 2018 Inactive 60/box. This refill negates all other refills of this medication. Please do not fill early. Please do not auto refill. lisinopril 2.5 mg tablet RxNorm: 841211 1 Tablet(s) PO daily 06/21/20 19 2019 Inactive gabapentin 300 mg capsule RxNorm: 496087 1 Capsule(s) PO TID 06/21/20 19 2019 Inactive atorvastatin 20 mg tablet RxNorm: 403227 1 Tablet(s) PO QHS 06/07/20 19 2018 Inactive This refill negates all other refills of this medication TRUEplus Lancets 30 gauge RxNorm: 1 Lancets Miscellaneous QAM 05/29/20 19 2018 Inactive 100/box gabapentin 300 mg capsule RxNorm: 103376 1 Capsule(s) PO TID 05/03/20 19 2018 Inactive Flintstones Complete (iron) 18 mg iron chewable tablet RxNorm: 1 Tablet(s) PO daily 04/04/20 19 2021 Inactive This refill negates all other refills of this medication gabapentin 300 mg capsule RxNorm: 728132 1 Capsule(s) PO TID as needed 02/01/20 19 2018 Inactive True Metrix Glucose Test Strip RxNorm: 1 Test Strips Miscellaneous QA 02/01/20 19 2018 Inactive 100/container Alcohol Prep Pads RxNorm: 574636 1 Patch TOP QA 02/01/20 19 2018 Inactive TRUEplus Lancets 30 gauge RxNorm: 1 Lancets Miscellaneous QA 02/01/20 19 2018 Inactive 100/box lisinopril 2.5 mg tablet RxNorm: 123383 1 Tablet(s) PO daily 12/28/19 19 2018 Inactive ranitidine 150 mg tablet RxNorm: 601257 1 Tablet(s) PO BID 10/21/192018 Inactive This refill negates all other refills of this medication albuterol sulfate 2.5 mg/3 mL (0.083 %) solution for nebulization RxNorm: 385438 1 Vial INH QID 10/21/192018 Inactive 60/box. [...] this medication gabapentin 300 mg capsule RxNorm: 937474 1 Capsule(s) PO TID as needed 10/21/192018 Inactive atorvastatin 20 mg tablet RxNorm: 957956 1 Tablet(s) PO QHS 10/21/192018 Inactive This refill negates all other refills of this medication trazodone 50 mg tablet RxNorm: 197158 1 Tablet(s) PO QHS 10/21/192018 Inactive This refill negates all other refills of this medication Ventolin HFA 90 mcg/actuation aerosol inhaler RxNorm: 996508 2 Puff(s) INH QID 10/21/192018 Inactive Please do not fill early. Please do not auto refill. This refill negates all other refills of this medication Calcium 600-D3 Plus 600 mg calcium-800 unit-50 mg tablet RxNorm: 1 Tablet(s) PO daily take an additonal tablet for itching. 10/21/192018 Inactive This refill negates all other refills of this medication Singulair 10 mg tablet RxNorm: 236671 1 Tablet(s) PO daily 10/21/192018 Inactive This refill negates all other refills of this medication buspirone 7.5 mg tablet RxNorm: 681201 1 Tablet(s) PO BID 10/21/192018 Inactive This refill negates all other refills of this medication diclofenac sodium 75 mg tablet,delayed release RxNorm: 966137 1 Tablet(s) PO BID 10/21/19 19 2018 Inactive This refill negates all other refills of this medication hydrochlorothiazide 12.5 mg tablet RxNorm: 689999 1 Tablet(s) PO QAM 10/21/192018 Inactive metoprolol succinate ER 50 mg tablet,extended release 24 hr RxNorm: 694306 1 Tablet(s) PO daily 10/21/19 19 2018 Inactive This refill negates all other refills of this medication levothyroxine 50 mcg tablet RxNorm: 914148 1 Tablet(s) PO daily 10/21/19 19 2018 Inactive This refill negates all other refills of this medication cetirizine 10 mg tablet RxNorm: 8936401 1 Tablet(s) PO daily 10/21/19 19 2018 Inactive This refill negates all other refills of this medication. Please do not auto refill Flintstones Complete (iron) 18 mg iron chewable tablet RxNorm: 1 Tablet(s) PO daily 10/21/192018 Inactive This refill negates all other refills of this medication buspirone 7.5 mg tablet RxNorm: 347493 1 Tablet(s) PO BID 10/12/192018 Inactive cetirizine 10 mg tablet RxNorm: 7189241 1 Tablet(s) PO daily 09/28/20 18 2018 Inactive Guaiasorb DM 10 mg-100 mg/5 mL oral liquid RxNorm: 842490 10 Milliliter(s) PO As needed every 4 hr 09/24/20 18 2018 Inactive Vicks Vaporub 4.7 %-1.2 %-2.6 % topical ointment RxNorm: 8135725 1 Application TOP TID 09/24/20 18 2018 Inactive levmetamfetamine 50 mg nasal inhaler RxNorm: 1 Unit(s) NASAL Q3-4H 09/24/20 18 2017 Inactive sertraline 50 mg tablet RxNorm: 118887 1 Tablet(s) PO daily 09/09/20 18 2018 Inactive Please note dose trazodone 50 mg tablet RxNorm: 427173 1 Tablet(s) PO QHS 09/06/20 18 2018 Inactive sertraline 50 mg tablet RxNorm: 338922 1 Tablet(s) PO daily 09/06/20 18 2017 Inactive amoxicillin 500 mg tablet RxNorm: 302867 1 Tablet(s) PO Q12H 08/31/20 18 2017 Inactive albuterol sulfate 2.5 mg/3 mL (0.083 %) solution for nebulization RxNorm: 395658 1 Vial INH QID 08/10/20 18 2018 Inactive 60/box. Please do not fill early. Please do not auto refill. Prozac 10 mg capsule RxNorm: 304707 1 Capsule(s) PO daily 08/09/20 18 2017 Inactive buspirone 7.5 mg tablet RxNorm: 194254 1 Tablet(s) PO BID 08/09/20 18 2018 Inactive gabapentin 300 mg capsule RxNorm: 819715 1 Capsule(s) PO TID as needed 08/01/20 18 2018 Inactive hydrochlorothiazide 12.5 mg tablet RxNorm: 961881 1 Tablet(s) PO QAM 08/01/20 18 2018 Inactive ranitidine 150 mg tablet RxNorm: 080176 1 Tablet(s) PO BID 08/01/20 18 2018 Inactive Macrobid 100 mg capsule RxNorm: 494059 1 Capsule(s) PO Q12H 06/21/20 18 2017 Inactive Singulair 10 mg tablet RxNorm: 875971 1 Tablet(s) PO daily 06/14/20 18 2018 Inactive Ventolin HFA 90 mcg/actuation aerosol inhaler RxNorm: 0311098 2 Puff(s) INH QID 06/14/20 18 2018 Inactive Singulair 10 mg tablet RxNorm: 602139 1 Tablet(s) PO daily 06/14/20 18 2017 Inactive buspirone 7.5 mg tablet RxNorm: 848995 1 Tablet(s) PO BID 06/14/20 18 2017 Inactive Prozac 10 mg capsule RxNorm: 977429 1 Capsule(s) PO daily 06/14/20 18 2017 Inactive Neilmed Pediatric Sinus Rinse Refill packet RxNorm: 1 Unit Dose NASAL PRN 05/31/20 18 2021 Inactive diclofenac sodium 75 mg tablet,delayed release RxNorm: 171217 1 Tablet(s) PO BID 05/31/20 18 2017 Inactive lisinopril 2.5 mg tablet RxNorm: 952617 1 Tablet(s) PO daily 05/31/20 18 2017 Inactive metoprolol succinate ER 50 mg tablet,extended release 24 hr RxNorm: 904119 1 Tablet(s) PO daily 05/31/20 18 2017 Inactive levothyroxine 50 mcg tablet RxNorm: 261670 1 Tablet(s) PO daily 05/31/20 18 2017 Inactive TRUEplus Lancets 30 gauge RxNorm: 1 Lancets Miscellaneous QAM 05/31/20 18 2017 Inactive 100/box Ventolin HFA 90 mcg/actuation aerosol inhaler RxNorm: 780248 2 Puff(s) INH QID 05/31/20 18 2017 Inactive Aleve 220 mg capsule RxNorm: 2023157 1 Capsule(s) PO BID 05/31/20 18 2018 Inactive ranitidine 150 mg tablet RxNorm: 714173 1 Tablet(s) PO BID 05/31/20 18 2017 Inactive gabapentin 300 mg capsule RxNorm: 884179 1 Capsule(s) PO TID as needed 05/31/20 18 2017 Inactive atorvastatin 20 mg tablet RxNorm: 662853 1 Tablet(s) PO QHS 05/31/20 18 2017 Inactive True Metrix Glucose Test Strip RxNorm: 1 Test Strips Miscellaneous QAM 05/31/20 18 2017 Inactive 50/container Calcium 600-D3 Plus 600 mg calcium-800 unit-50 mg tablet RxNorm: 1 Tablet(s) PO daily take an additonal tablet for itching. 05/31/20 18 2017 Inactive hydrochlorothiazide 12.5 mg tablet RxNorm: 466021 1 Tablet(s) PO QAM 05/31/20 18 2017 Inactive Flintstones Complete (iron) 18 mg iron chewable tablet RxNorm: 1 Tablet(s) PO daily 05/31/20 18 2017 Inactive d-mannose oral powder RxNorm: PO 18 2021 Inactive True Metrix Glucose Meter RxNorm: miscellaneous 08/17/20 19 2018 Inactive sertraline 50 mg tablet RxNorm: 110931 1 Tablet(s) PO daily 11/28/19 20 2019 Inactive loperamide 2 mg tablet RxNorm: 587112 oral 09/29/20 19 2018 Inactive Symbicort 160 mcg-4.5 mcg/actuation HFA aerosol inhaler RxNorm: 1826639 2 Puff(s) INH BID 08/17/20 19 2018 Inactive Medication Administered No Medication Administered data Results Observation Observation Code Item Item Code Result Date S ervice Location PREALBUMIN 19727 Prealbumin 86539-0 32 mg/dL 11/03/2020 [facility] [address] [place], [place] [address]JVAR 14 (METABOLIC PANEL)61214Ggectam1941-5166 mg/dL11/03/2020 [facility] [address] [place], [place] [address]OFCT 14 (METABOLIC PANEL)36120CLB8344-921 mg/dL11/03/2020 [facility] [address] [place], [place] [address]ZDXL 14 (METABOLIC PANEL)34086Mwktfvuxmo9940-48.7 mg/dL11/03/2020 [facility] [address] [place], [place] [address]CQWR 14 (METABOLIC PANEL)86936KHO/Creat Nfyzz6854-815.402 [facility] [address] [place], [place] [address]SFSJ 14 (METABOLIC PANEL)23143CID Bwxnjwecd82438-899 mL/min/1.73m2 11/03/2020 [facility] [address] [place], [place] [address]ILJC 14 (METABOLIC PANEL)40609EOE Estimated for Americans [address] mL/min/1.27z75911/03/2020 [facility] [address] [place], [place] [address]IBSN 14 (METABOLIC PANEL)06141Bverik0849-1403 mmol/L11/03/2020 [facility] [address] [place], [place] [address]QRGY 14 (METABOLIC PANEL)02229Iyvlniubl6945-60.7 mmol/L11/03/2020 [facility] [address] [place], [place] [address]VPHT 14 (METABOLIC PANEL)26983Hkoqjplt4488-0901 mmol/L11/03/2020 [facility] [address] [place] [address]KQAT 14 (METABOLIC PANEL)91311Xdlux FU61723-606 mmol/L11/03/2020 [facility] [address] [place] [address]LRXT 14 (METABOLIC PANEL)87499Ttpvb Elw3006-130.7 mEq/L11/03/2020 [facility] [address] [place] [address]NMKH 14 (METABOLIC PANEL)75685Mpmbrjuxtf Serum Nikwskvvkc27422-9268 mOsm/kg11/03/2020 [facility] [address] [place] [address]IVEF 14 (METABOLIC PANEL)83248Ehtohyj97977-59.7 g/dL11/03/2020 [facility] [address] [place], [place] [address]ACLG 14 (METABOLIC PANEL)69164Sfuxa Wkcwgpi0129-42.9 g/dL11/03/2020 [facility] [address] [place] [address]WDHJ 14 (METABOLIC PANEL)84003Nebyodle0652-06.2 g/dL11/03/2020 [facility] [address] [place], [place] [address]NXHT 14 (METABOLIC PANEL)11833Sntpwqb/Globulin Eznth3319-41.2 11/03/2020 [facility] [address] [place] [address]ZBLQ 14 (METABOLIC PANEL)832[address]LNM TZCB3874-747.00 U/L11/03/2020 [facility] [address] [place] [address]XPLA 14 (METABOLIC PANEL)12734YVQG/XTM5093-936 U/L11/03/2020 [facility] [address] [place] [address]CRNL 14 (METABOLIC PANEL)86924AYMA/LSZ6707-800 U/L11/03/2020 [facility] [address] [place], [place] [address]FNUI 14 (METABOLIC PANEL)04398Ncmlt Urivspchn8539-65.3 mg/dL 11/03/2020 [facility] [address] [place], [place] [address]IRNE 14 (METABOLIC PANEL)89623Vxeragd84419-94.0 mg/dL11/03/2020 [facility] [address] [place] [address]DGFG 14 (METABOLIC PANEL)26081Zmqlmwgeu Lfjimhf35673-79.4 mg/dL 11/03/2020 [facility] [address] [place] [address]MMNHKRPFH77981Gtwkumxuf75953-40.6 mg/dL11/03/2020 [facility] [address] [address]L0J-DTZZWIIWXBFXRYQ4608-5Vnpvt HGB J7S50556-41.6 %11/01/2020 [facility] [address] [place] [address]V3L-LSOEUNVBQDSUSIA7844-7rCH90475-7934 mg/dL11/01/2020 [facility] [address] [facility] [place] [address] Procedures Procedure Codes Date Glucose Blood Test CPT-4: 57357 10/29/2020 Urinalysis, dip stick CPT-4: 22687 09/24/2020 Patient Health Questionnaire CPT-4: DPHQ Electrocardiogram CPT-4: 42129 05/14/2020 Tobacco Assessment/Screening CPT-4: TCA [facility] 4 CPT-4: DFRA01/01/2020Functional AssessmentCPT-4: DFA01/01/2020Semmes Fany AssessmentCPT-4: DSWA11/28/2019Patient Health QuestionnaireCPT-4: DPHQ11/28/2019 Ehrhardt Fany AssessmentCPT-4: DSWA10/17/2019HypertensionCPT-4: HTN10/17/2019 [id number] CPT-4: DFRA09/19/2019Functional AssessmentCPT-4: DFA111/20/2018Urinalysis, dip stickCPT-4: 3276053Tobacco Assessment/ScreeningCPT-4: TCA05/24/2019 Patient Health QuestionnaireCPT-4: DPHQ05/24/2019AHA/REBECCA Classification AssessmentCPT-4: DAHA04/25/2019Controlled Substance ReportCPT-4: CTRSU04/25/2019 Urinalysis, dip stickCPT-4: 360683403/28/2019Urinalysis, dip stickCPT-4: 87638 03/28/20199395A2L-ItezsisvywyorxnNTU-9: 78308WxiwmnsJ7W-UxkggwtpnjpabaeLPN-4: 04274 WgrsuykD8F-JamwodfpiebscjeRJI-6: 37489MsmpfwyJ1F-IuujabttvfrpdcsCBN-3: 36068 MaxhovdJ1Q-VgrlyhsoowudaksOLE-0: 35516AiqzmmpE8F-HwqlctijiqsyrsbKJN-2: [address]: 266011422 CPT-4: Q59Nuvvhii Vital Signs Date Vital 10/29/2020 Blood Pressure 1: 98/66 Code: 8480-6 BMI: 53.3 Code: 53288-1 Heart Rate 1: 80 bpm Height: 4'11 Code: 8302-2 Respiratory Rate: 16 bpm SpO2: 99% Temperature: 36.6 (C) / 97.9 (F) Weight: 264 lbs Code: 29076-7 Reason For Visit Reason For Visit Effective Dates Notes hypertension 10/29/2020 diabetes mellitus 10/29/2020 gastroesophageal reflux disease 10/29/2020 Interim health update 10/29/2020 Encounters Encounter Performer Location Location Address Codes Magdi e HOME VISIT EST PATIENT Diagnosis: Type 2 diabetes mellitus with peripheral neuropathy[ICD10: E11.42] Diagnosis: Chronic kidney disease, stage 2 (mild)[ICD10: N18.2] Diagnosis: Right wrist pain[ICD10: M25.531] Diagnosis: Essential (primary) hypertension[ICD10: I10] Diagnosis: GERD (gastroesophageal reflux disease)[ICD10: K21.9] Diagnosis: History of surgery on right wrist[ICD10: Z98.890] Diagnosis: Adjustment disorder with mixed anxiety and depressed mood[ICD10: F43.23]Anna Bourgeois [address] [place] [address]LVA-0: [id number] Plan of Care Planned Activity Notes Codes Status Date Patient Education: Patient Medication Summary Dqbyeujuj91/27/2021atient Education: NcdpvourxjtiPjjggxiho09/27/2021atient Education: PyvmhjqrWozdcmkzw14/27/2021ppointment: Anna Culver WPtel: [id number] [place], [place] [id number]/25/2019Appointment: Palomo, Anna WPtel: [id number] [place] [address] [place] [address] USETV110/26/2019Appointment: Anna Culver WPtel: [id number] [place] [address] USETV110/19/2019Appointment: Anna Culver WPtel: [id number] [place] [address] [id number]: Anna Culver WPtel: [id number] [place] [address] [id number]: Gianna Birmingham: [address] [facility] 100 [id number] QLHTCV6307/02/2020Appointment: Anna Culver WPtel: [address] [place] [address] [id number]: Anna Culver WPtel: [id number] [place] [address] [id number]: Anna Culver WPtel: [id number] [place] [address] [id number]: Anna Culver WPtel: [address] [address] [place] [address] [id number]: Anna Culver WPtel: [id number] [place] [address] [place] [address] [id number]/Appointment: Anna Culver WPtel: [id number] [place] [address] [place] [address] [id number]/Appointment: Anna Culver WPtel: [id number] [place] [address] [place] [address] [id number]: Anna Culver WPtel: [address] [place] [address] [place] [address] [id number]: Anna Culver WPtel: [address] [place] [address] [id number]: Anna Culver WPtel: [address] [place] [address] [id number]: Sudha Hernadez WPtel: [address] [facility] [address] [id number]: Sudha Hernadez WPtel: [address] [facility] [address] [id number]: Charlene Oropeza WPtel: [address] [facility] [address] [id number]: Bianca DelgaodLdovouE48913/26/2019Appointment: Charlene Oropeza WPtel: [address] [facility] [address] [id number]: Haupricht, Rasta WPtel: [address] [facility] [place] [address] [id number]: Haupricht, Rasta WPtel: [address] [facility] [place] [address] [id number]: Haupricht, Rasta WPtel: [address] [facility] [address] [id number]: Haupricht, Rasta WPtel: [address] [facility] [place] [address] [id number]: Pending Gynecology Referral InformationReferral ProcessedReferral: Pending Pulmonology Referral InformationReferralProcessed Referral: Pending Psychiatry Referral InformationReferralInitiatedReferral: Pending Respiratory Services Referral InformationReferralInitiatedReferral: Pending Ophthalmology Referral InformationReferralInitiatedReferral: [facility] WPtel: [address] [facility] [address] [facility] USWriter placed a call out to the patient to notify her that it has been recommended that she be seenby a urologist. Patient agreed to be seen, does not have a provider of choice and no transportationissues. Lettuce Trimmer faxed referral and clinical notes to [facility] in [place], [place] near the patient's home. Patient to [...] seen and prefers a provider in the [place] or [place] area. Lettuce Trimmer placed a call out to everyone listed in the area and the only location that was able to accept the patient's insurance was [address] [address] and spoke with Maylin. Maylin asked that the patient's referral, face sheet and visit notes be faxed to . Lettuce Trimmer faxed over requested documents. Patient appointment confirmation letter generated and mailed to her home address. Patient to call to schedule an appointment.ProcessedReferral: [facility] WPtel: [address] [facility] [address] [id number] USPatient notified that it has been advised that she be seen by Neurology. Patient agreed to be seen and prefers to be seen by a provider in the [place], [place] area. Patient denies any concerns with transportation, and prefers to schedule her own appointment. Lettuce Trimmer placed a call out to [facility] and spoke with Neeraj P: who confirmed that their office is able to acceptnew patients and the patient's insurance. After confirming the providers fax number, signwriter faxed over the patient's referral, and most [...]
--- OUTSIDE RECORDS SUMMARY | 2023-12-07 02:15 | XMS_ITS | CCD ---
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 Name Role Phone Palomo KING, Anna Primary Care Provider Unav ailable Unavailable Chronic Care Management Unavaila ble Summary Purpose DataExchange Insurance Providers Payer name Policy type / Coverage type Covered democrat ID Effective Begin Date Effective End Date [facility] [id number] Unknown Unknown Family history Mother Diagnosis Age [...] 05/31/2018 Education level Unknown Some High School 10th05/31/20180745FihteklkhqVduwwjhJycrulsogs07/29/2018Tobacco historySNOMED CT: 338600060Caz never smoked or chewed vpkteqz8405/31/2018Alcohol historySNOMED CT: 799065986Xfwpo drinks sehzppe6605/31/2018Has the patient ever used illegal drugs? UnknownHas never used illegal drugs05/31/2018DNR Order/ Advanced Directive UnknownFull Code05/31/2018 Allergies, Adverse Reactions, Alerts Substance Reaction Codes Entered Date Inactivated Date Status OxyContin itch, RxNorm: 388323 01/13/2021 No Inactive Da te Active *No known food allergies Jvctzbu7409/06/2018No Inactive DateActiveMethylprednisolonehivesRxNorm: 6902 09/06/2018No Inactive DateActive Problems Condition Codes Effective Dates Condition St atus Chronic kidney disease, stage 2 (mild) I CD-10: N18.2 ICD-9: 585.201/ctiveElevated liver enzymesICD-10: R74.8 ICD-9: 790.504/1ActiveGERD (gastroesophageal reflux disease)ICD-10: K21.9 ICD-9: 530.8112ActiveHistory of bladder surgeryICD-10: Z98.890 ICD-9: V45.8904ctiveHypertensive heart disease with heart failureICD- 10: I11.0 ICD-9: 402.9107/ActiveType 2 diabetes mellitus with peripheral neuropathy ICD-10: E11.42 ICD-9: 250.6002/ActiveUrinary retention with incomplete bladder emptying ICD-10: R33.9 ICD-9: 788.2104/ctive(Z00.01-V70.0) Encounter for general adult medical examination with abnormal findingsICD-10: Z00.01 ICD-9: V70.004/ctive(Z13.31-V79.0) Encounter for screening for depressionICD-10: Z13.31 ICD-9: V79.004ctiveEncounter for immunizationICD-10: Z23 ICD-9: V04.8109InactiveEssential (primary) hypertensionICD-10: I10 ICD-9: 401.901InactiveAnorexiaICD-10: R63.0 ICD-9: 783.0031ActiveObstructive sleep apnea (adult) (pediatric)ICD-10: G47.33 ICD-9: 327.2309/ActiveApnea, not elsewhere classifiedICD-10: R06.81 ICD-9: 786.0305InactiveChest pain, unspecifiedICD-10: R07.9 ICD-9: 786.5002InactiveChronic kidney disease, unspecifiedICD-10: N18.9 ICD-9: 585.909/InactiveDiarrheaICD-10: R19.7 ICD-9: 787.9112InactiveEncounter for immunizationICD-10: Z23 ICD-9: V03.907/InactiveEncounter for preprocedural cardiovascular examinationICD-10: Z01.810 ICD-9: V72.8106/InactiveHeadacheICD-10: R51 ICD-9: 784.001/10/2018InactiveOther group home (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ICD-10: Z79.899 ICD-9: V58.6907/InactiveType 2 diabetes mellitus without complications ICD-10: E11.9 ICD-9: 250.0001/10/2018InactiveWheezingICD-10: R06.2 ICD-9: 786.0711/03/2018InactiveAbnormal urine findingICD-10: R82.90 ICD-9: 791.912/ResolvedAbrasion of toeICD-10: S90.416A ICD-9: 917.005ResolvedAcute upper respiratory infection, unspecifiedICD- 10: J06.9 ICD-9: 465.912ResolvedPink eyeICD-10: H10.029 ICD-9: 372.0303ResolvedRight wrist painICD-10: M25.531 ICD-9: 719.4308/09/2020ResolvedSinusitisICD-10: J32.9 ICD-9: 473.902/02/2020ResolvedSuperficial burn of multiple sites of right hand, subsequent encounterICD-10: T23.191D ICD-9: V58.8902/1ResolvedUrinary tract infectionICD-10: N39.0 ICD-9: 599.012/ResolvedAdjustment disorder with mixed anxiety and depressed moodICD-10: F43.23 ICD-9: 309.2812/01/2018ActivePolyneuropathy, unspecifiedICD-10: G62.9 ICD-9: 356.908ActiveEncounter for screening, unspecifiedICD-10: Z13.9 ICD-9: V82.912/01/2018Active(Z12.4-V76.2) Encounter for screening for malignant neoplasm of cervixICD-10: Z12.4 ICD-9: V76.207ActiveHyperlipidemia, unspecifiedICD-10: E78.5 ICD-9: 272.408/ActiveHypothyroidism, unspecifiedICD-10: E03.9 ICD-9: [...] Fill Instructions levothyroxine 50 mcg tablet RxNorm: 788426 TAKE (1) TABLET BY MOUTH DAILY 02/04/20 21 2020 Inactive metformin 500 mg tablet RxNorm: 774910 1 Tablet(s) Oral two times a day take with 500mg to equal 1000mg 01/14/20 21 2020 Inactive gabapentin 300 mg capsule RxNorm: 854300 TAKE 1 CAPSULE BY MOUTH THREE TIMES A DAY 01/14/20 21 2020 Inactive lisinopril 2.5 mg tablet RxNorm: 086940 TAKE 1 TABLET BY MOUTH DAILY 01/06/20 21 2020 Inactive gabapentin 300 mg capsule RxNorm: 936309 TAKE 1 CAPSULE BY MOUTH THREE TIMES A DAY 01/06/20 21 2020 Inactive Singulair 10 mg tablet RxNorm: 246517 TAKE (1) TABLET BY MOUTH DAILY 01/06/20 21 2020 Inactive metformin 1,000 mg tablet RxNorm: 007267 1 Tablet(s) Oral two times a day 01/06/20 21 2020 Inactive atorvastatin 40 mg tablet RxNorm: 585408 1 Tablet(s) Oral every day 12/06/19 21 2020 Inactive omeprazole 20 mg capsule,delayed release RxNorm: 540948 1 Capsule(s) Oral every evening 11/24/19 21 2020 Inactive famotidine 10 mg tablet RxNorm: 032952 1 Tablet(s) Oral every morning 11/24/19 21 2020 Inactive Alcohol Prep Pads RxNorm: 022599 USE EACH MORNING 10/14/19 21 2020 Inactive omeprazole 20 mg capsule,delayed release RxNorm: 889808 1 Capsule(s) Oral two times a day 10/13/19 21 2021 Inactive omeprazole 20 mg capsule,delayed release RxNorm: 204104 TAKE 1 CAPSULE BY MOUTH EVERY DAY 10/08/19 21 2021 Inactive Macrobid 100 mg capsule RxNorm: 313004 1 Capsule(s) Oral every 12 hours with food 10/01/202020 Inactive omeprazole 20 mg capsule,delayed release RxNorm: 19800201 1 Capsule(s) Oral two times a day 09/24/20 20 2021 Inactive metformin 1,000 mg tablet RxNorm: 931170 1 Tablet(s) Oral two times a day 08/19/20 20 2020 Inactive start on September 11, 2020 metformin 500 mg tablet RxNorm: 614832 1 Tablet(s) Oral two times a day take with 500mg to equal 1000mg 08/19/20 20 2019 Inactive gabapentin 300 mg capsule RxNorm: 817746 TAKE 1 CAPSULE BY MOUTH THREE TIMES DAILY 07/11/20 20 2020 Inactive cetirizine 10 mg tablet RxNorm: 5526758 TAKE (1) TABLET BY MOUTH DAILY 07/11/20 20 2020 Inactive metformin 500 mg tablet RxNorm: 576972 1 Tablet(s) Oral two times a day 07/08/20 20 2019 Inactive loperamide 2 mg tablet RxNorm: 671180 1 Tablet(s) Oral as needed take one tablet after each loose stool, maximum of 8 tablets in 24 hours 06/24/20 20 2021 Inactive Sudafed 12 Hour 120 mg tablet,extended release RxNorm: 3552134 TAKE 1 TABLET BY MOUTH EVERY 12 HOURS NEEDED 06/11/20 20 2019 Inactive hydrochlorothiazide 25 mg tablet RxNorm: 554438 TAKE (1) TABLET BY MOUTH EVERY DAY 06/11/20 20 2019 Inactive omeprazole 20 mg capsule,delayed release RxNorm: 595648 TAKE 1 CAPSULE BY MOUTH EVERY DAY 05/14/20 20 2020 Inactive metformin 500 mg tablet RxNorm: 527679 1 Tablet(s) Oral every day 05/12/20 20 2019 Inactive True Metrix Glucose Test Strip RxNorm: 1 Test Strips Miscellaneous two times a day as needed 04/17/20 No Stop Date Active metformin 500 mg tablet RxNorm: 763641 1 Tablet(s) Oral every day 04/17/20 20 2019 Inactive diclofenac sodium 75 mg tablet,delayed release RxNorm: 912053 1 Tablet(s) PO BID 04/14/20 20 2021 Inactive This refill negates all other refills of this medication Sudafed 12 Hour 120 mg tablet,extended release RxNorm: 8920040 TAKE 1 TABLET BY MOUTH EVERY 12 HOURS NEEDED 03/14/20 20 2019 Inactive True Metrix Glucose Test Strip RxNorm: 1 Test Strips Miscellaneous every morning 03/13/20 20 2019 Inactive 100/container True Metrix Glucose Test Strip RxNorm: 1 Test Strips Miscellaneous QAM 02/22/20 20 2019 Inactive 100/container loperamide 2 mg tablet RxNorm: 495133 1 Tablet(s) Oral as needed take one tablet after each loose stool, maximum of 8 tablets in 24 hours 02/22/20 20 2019 Inactive cetirizine 10 mg tablet RxNorm: 0794545 1 Tablet(s) PO daily 01/17/20 20 2019 Inactive loperamide 2 mg tablet RxNorm: 335518 1 Tablet(s) Oral as needed take one tablet after each loose stool, maximum of 8 tablets in 24 hours 01/17/20 20 2019 Inactive quetiapine 100 mg tablet RxNorm: 602117 1 Tablet(s) Oral every night at bedtime 01/17/20 20 2019 Inactive levothyroxine 50 mcg tablet RxNorm: 424999 1 Tablet(s) PO daily 01/17/20 20 2020 Inactive gabapentin 300 mg capsule RxNorm: 934207 1 Capsule(s) PO TID 01/17/20 20 2019 Inactive levothyroxine 50 mcg tablet RxNorm: 603875 1 Tablet(s) PO daily 01/15/20 20 2019 Inactive lisinopril 2.5 mg tablet RxNorm: 902078 1 Tablet(s) PO daily 01/15/20 20 2020 Inactive gabapentin 300 mg capsule RxNorm: 577445 1 Capsule(s) PO TID 01/15/20 20 2019 Inactive cetirizine 10 mg tablet RxNorm: 7503677 1 Tablet(s) PO daily 01/15/20 20 2019 Inactive Singulair 10 mg tablet RxNorm: 650361 1 Tablet(s) PO daily 01/15/20 20 2020 Inactive gentamicin 0.3 % eye drops RxNorm: 180661 1 Drop(s) ophthalmic (eye) four times a day 12/29/19 20 2019 Inactive gentamicin 0.3 % eye drops RxNorm: 330884 1 Drop(s) ophthalmic (eye) four times a day 12/29/19 20 2019 Inactive gentamicin 0.3 % eye drops RxNorm: 139057 1 Drop(s) ophthalmic (eye) four times a day 12/29/19 20 2019 Inactive hydrochlorothiazide 25 mg tablet RxNorm: 734931 1 Tablet(s) Oral every day 12/21/19 20 2019 Inactive Sudafed 12 Hour 120 mg tablet,extended release RxNorm: 2908886 TAKE (1) TABLET BY MOUTH EVERY 12 HOURS NEEDED 12/21/19 20 2019 Inactive loperamide 2 mg tablet RxNorm: 729271 1 Tablet(s) Oral as needed take one tablet after each loose stool, maximum of 8 tablets in 24 hours 12/11/19 20 2019 Inactive loperamide 2 mg tablet RxNorm: 605481 1 Tablet(s) Oral as needed take one tablet after each loose stool, maximum of 8 tablets in 24 hours 12/11/19 20 2019 Inactive atorvastatin 40 mg tablet RxNorm: 395865 1 Tablet(s) Oral every day 11/29/19 20 2020 Inactive quetiapine 100 mg tablet RxNorm: 424886 1 Tablet(s) Oral every night at bedtime 11/28/19 20 2019 Inactive sertraline 100 mg tablet RxNorm: 464933 1 Tablet(s) Oral 11/28/19 20 2019 Inactive omeprazole 20 mg capsule,delayed release RxNorm: 637846 1 Capsule(s) Oral every day 11/20/19 20 2019 Inactive amoxicillin 250 mg capsule RxNorm: 396856 1 Capsule(s) Oral three times a day 11/07/19 20 2019 Inactive multivitamin with iron-mineral tablet RxNorm: 1 Tablet(s) Oral every day 10/29/19 20 2021 Inactive cetirizine 10 mg tablet RxNorm: 0245050 1 Tablet(s) PO daily 10/20/19 20 2019 Inactive This refill negates all other refills of this medication. Please do not auto refill Singulair 10 mg tablet RxNorm: 884638 1 Tablet(s) PO daily 10/20/192019 Inactive This refill negates all other refills of this medication gabapentin 300 mg capsule RxNorm: 371098 1 Capsule(s) PO TID 10/20/192019 Inactive lisinopril 2.5 mg tablet RxNorm: 911209 1 Tablet(s) PO daily 10/20/192019 Inactive levothyroxine 50 mcg tablet RxNorm: 234376 1 Tablet(s) PO daily 10/20/192019 Inactive This refill negates all other refills of this medication fenugreek seed extract 500 mg capsule RxNorm: 1 Capsule(s) Oral three times a day 10/17/19 20 2021 Inactive hydrochlorothiazide 25 mg tablet RxNorm: 530299 1 Tablet(s) Oral every day 10/17/19 20 2019 Inactive Alcohol Prep Pads RxNorm: 793119 1 Patch TOP QAM 10/16/19 20 2020 Inactive loperamide 2 mg tablet RxNorm: 280037 1 Tablet(s) Oral as needed take one [...] 09/19/202019 Inactive hydrochlorothiazide 25 mg tablet RxNorm: 347276 1 Tablet(s) Oral every day 09/19/202019 Inactive Sudafed 12 Hour 120 mg tablet,extended release RxNorm: 8733240 1 Tablet(s) Oral every 12 hours as needed 09/11/20 19 2018 Inactive omeprazole 20 mg capsule,delayed release RxNorm: 965198 1 Capsule(s) Oral every day 09/07/20 19 2019 Inactive Sudafed 12 Hour 120 mg tablet,extended release RxNorm: 4385158 1 Tablet(s) Oral every 12 hours as needed 09/04/20 19 2018 Inactive pantoprazole 40 mg tablet,delayed release RxNorm: 704159 1 Tablet(s) Oral every day 08/24/20 19 2018 Inactive discontinue any other H2Blkr. and PPI albuterol sulfate 2.5 mg/3 mL (0.083 %) solution for nebulization RxNorm: 536235 1 Vial Inhalation every four hours as needed as needed for dyspnea 08/17/20 19 2019 Inactive 60/box. This refill negates all other refills of this medication. Please do not fill early. Please do not auto refill. Symbicort 160 mcg-4.5 mcg/actuation HFA aerosol inhaler RxNorm: 0850141 2 Puff(s) INH BID 08/17/20 No Stop Date Active Alcohol Prep Pads RxNorm: 857909 1 Patch TOP QAM 08/17/20 19 2019 Inactive Ventolin HFA 90 mcg/actuation aerosol inhaler RxNorm: 111248 2 Puff(s) INH QID 08/09/20 19 2019 Inactive Please do not fill early. Please do not auto refill. This refill negates all other refills of this medication True Metrix Glucose Test Strip RxNorm: 1 Test Strips Miscellaneous QAM 08/09/20 19 2019 Inactive 100/container atorvastatin 40 mg tablet RxNorm: 976324 1 Tablet(s) Oral every day 07/04/20 19 2019 Inactive levmetamfetamine 50 mg nasal inhaler RxNorm: 1 Unit(s) NASAL Q3-4H Do not use more than every 3 hours or 8 times/24hours 06/26/20 19 2021 Inactive Please do not auto refill. This refill negates all other refills of this medication buspirone 7.5 mg tablet RxNorm: 610733 1 Tablet(s) PO BID 06/26/20 19 2020 Inactive This refill negates all other refills of this medication hydrochlorothiazide 12.5 mg tablet RxNorm: 642098 1 Tablet(s) PO QAM 06/26/20 19 2019 Inactive Ventolin HFA 90 mcg/actuation aerosol inhaler RxNorm: 867453 2 Puff(s) INH QID 06/26/20 19 2018 Inactive Please do not fill early. Please do not auto refill. This refill negates all other refills of this medication Singulair 10 mg tablet RxNorm: 136593 1 Tablet(s) PO daily 06/26/20 19 2019 Inactive This refill negates all other refills of this medication cetirizine 10 mg tablet RxNorm: 3654905 1 Tablet(s) PO daily 06/26/20 19 2019 Inactive This refill negates all other refills of this medication. Please do not auto refill levothyroxine 50 mcg tablet RxNorm: 754762 1 Tablet(s) PO daily 06/26/20 19 2019 Inactive This refill negates all other refills of this medication diclofenac sodium 75 mg tablet,delayed release RxNorm: 773703 1 Tablet(s) PO BID 06/26/20 19 2019 Inactive This refill negates all other refills of this medication ranitidine 150 mg tablet RxNorm: 617274 1 Tablet(s) PO BID 06/26/20 19 2018 Inactive This refill negates all other refills of this medication Calcium 600-D3 Plus (mag-zinc) 600 mg calcium-800 unit-50 mg tablet RxNorm: 1 Tablet(s) PO daily take an additonal tablet for itching. 06/26/20 19 2018 Inactive This refill negates all other refills of this medication albuterol sulfate 2.5 mg/3 mL (0.083 %) solution for nebulization RxNorm: 117539 1 Vial INH QID 06/26/20 19 2018 Inactive 60/box. This refill negates all other refills of this medication. Please do not fill early. Please do not auto refill. lisinopril 2.5 mg tablet RxNorm: 052548 1 Tablet(s) PO daily 06/21/20 19 2019 Inactive gabapentin 300 mg capsule RxNorm: 156583 1 Capsule(s) PO TID 06/21/20 19 2019 Inactive atorvastatin 20 mg tablet RxNorm: 828783 1 Tablet(s) PO QHS 06/07/202018 Inactive This refill negates all other refills of this medication TRUEplus Lancets 30 gauge RxNorm: 1 Lancets Miscellaneous QAM 05/29/20 19 2018 Inactive 100/box gabapentin 300 mg capsule RxNorm: 502436 1 Capsule(s) PO TID 05/03/20 19 2018 Inactive Flintstones Complete (iron) 18 mg iron chewable tablet RxNorm: 1 Tablet(s) PO daily 04/04/202021 Inactive This refill negates all other refills of this medication gabapentin 300 mg capsule RxNorm: 662314 1 Capsule(s) PO TID as needed 02/01/20 19 2018 Inactive True Metrix Glucose Test Strip RxNorm: 1 Test Strips Miscellaneous QA 02/01/20 19 2018 Inactive 100/container Alcohol Prep Pads RxNorm: 305772 1 Patch TOP QA 02/01/20 19 2018 Inactive TRUEplus Lancets 30 gauge RxNorm: 1 Lancets Miscellaneous [facility] 02/01/20 19 2018 Inactive 100/box lisinopril 2.5 mg tablet RxNorm: 253691 1 Tablet(s) PO daily 12/28/19 19 2018 Inactive ranitidine 150 mg tablet RxNorm: 875632 1 Tablet(s) PO BID 10/21/192018 Inactive This refill negates all other refills of this medication albuterol sulfate 2.5 mg/3 mL (0.083 %) solution for nebulization RxNorm: 920288 1 Vial INH QID 10/21/192018 Inactive 60/box. [...] this medication gabapentin 300 mg capsule RxNorm: 426050 1 Capsule(s) PO TID as needed 10/21/19 19 2018 Inactive atorvastatin 20 mg tablet RxNorm: 932584 1 Tablet(s) PO QHS 10/21/19 19 2018 Inactive This refill negates all other refills of this medication trazodone 50 mg tablet RxNorm: 949195 1 Tablet(s) PO QHS 10/21/19 19 2018 Inactive This refill negates all other refills of this medication Ventolin HFA 90 mcg/actuation aerosol inhaler RxNorm: 722210 2 Puff(s) INH QID 10/21/192018 Inactive Please do not fill early. Please do not auto refill. This refill negates all other refills of this medication Calcium 600-D3 Plus 600 mg calcium-800 unit-50 mg tablet RxNorm: 1 Tablet(s) PO daily take an additonal tablet for itching. 10/21/192018 Inactive This refill negates all other refills of this medication Singulair 10 mg tablet RxNorm: 784257 1 Tablet(s) PO daily 10/21/192018 Inactive This refill negates all other refills of this medication buspirone 7.5 mg tablet RxNorm: 517396 1 Tablet(s) PO BID 10/21/192018 Inactive This refill negates all other refills of this medication diclofenac sodium 75 mg tablet,delayed release RxNorm: 966134 1 Tablet(s) PO BID 10/21/19 19 2018 Inactive This refill negates all other refills of this medication hydrochlorothiazide 12.5 mg tablet RxNorm: 404444 1 Tablet(s) PO QAM 10/21/19 19 2018 Inactive metoprolol succinate ER 50 mg tablet,extended release 24 hr RxNorm: 474411 1 Tablet(s) PO daily 10/21/19 19 2018 Inactive This refill negates all other refills of this medication levothyroxine 50 mcg tablet RxNorm: 496230 1 Tablet(s) PO daily 10/21/19 19 2018 Inactive This refill negates all other refills of this medication cetirizine 10 mg tablet RxNorm: 7871250 1 Tablet(s) PO daily 10/21/19 19 2018 Inactive This refill negates all other refills of this medication. Please do not auto refill Flintstones Complete (iron) 18 mg iron chewable tablet RxNorm: 1 Tablet(s) PO daily 10/21/19 19 2018 Inactive This refill negates all other refills of this medication buspirone 7.5 mg tablet RxNorm: 005779 1 Tablet(s) PO BID 10/12/19 19 2018 Inactive cetirizine 10 mg tablet RxNorm: 1484882 1 Tablet(s) PO daily 09/28/20 18 2018 Inactive Guaiasorb DM 10 mg-100 mg/5 mL oral liquid RxNorm: 393640 10 Milliliter(s) PO As needed every 4 hr 09/24/20 18 2018 Inactive Vicks Vaporub 4.7 %-1.2 %-2.6 % topical ointment RxNorm: 0451699 1 Application TOP TID 09/24/20 18 2018 Inactive levmetamfetamine 50 mg nasal inhaler RxNorm: 1 Unit(s) NASAL Q3-4H 09/24/20 18 2017 Inactive sertraline 50 mg tablet RxNorm: 649124 1 Tablet(s) PO daily 09/09/20 18 2018 Inactive Please note dose trazodone 50 mg tablet RxNorm: 123181 1 Tablet(s) PO QHS 09/06/20 18 2018 Inactive sertraline 50 mg tablet RxNorm: 633406 1 Tablet(s) PO daily 09/06/20 18 2017 Inactive amoxicillin 500 mg tablet RxNorm: 434046 1 Tablet(s) PO Q12H 08/31/20 18 2017 Inactive albuterol sulfate 2.5 mg/3 mL (0.083 %) solution for nebulization RxNorm: 518441 1 Vial INH QID 08/10/20 18 2018 Inactive 60/box. Please do not fill early. Please do not auto refill. Prozac 10 mg capsule RxNorm: 636668 1 Capsule(s) PO daily 08/09/20 18 2017 Inactive buspirone 7.5 mg tablet RxNorm: 583283 1 Tablet(s) PO BID 08/09/20 18 2018 Inactive gabapentin 300 mg capsule RxNorm: 585389 1 Capsule(s) PO TID as needed 08/01/20 18 2018 Inactive hydrochlorothiazide 12.5 mg tablet RxNorm: 731429 1 Tablet(s) PO QAM 08/01/20 18 2018 Inactive ranitidine 150 mg tablet RxNorm: 958905 1 Tablet(s) PO BID 08/01/20 18 2018 Inactive Macrobid 100 mg capsule RxNorm: 293393 1 Capsule(s) PO Q12H 06/21/20 18 2017 Inactive Singulair 10 mg tablet RxNorm: 603818 1 Tablet(s) PO daily 06/14/20 18 2018 Inactive Ventolin HFA 90 mcg/actuation aerosol inhaler RxNorm: 9326431 2 Puff(s) INH QID 06/14/20 18 2018 Inactive Singulair 10 mg tablet RxNorm: 063613 1 Tablet(s) PO daily 06/14/20 18 2017 Inactive buspirone 7.5 mg tablet RxNorm: 350539 1 Tablet(s) PO BID 06/14/20 18 2017 Inactive Prozac 10 mg capsule RxNorm: 705784 1 Capsule(s) PO daily 06/14/20 18 2017 Inactive Neilmed Pediatric Sinus Rinse Refill packet RxNorm: 1 Unit Dose NASAL PRN 05/31/20 18 2021 Inactive diclofenac sodium 75 mg tablet,delayed release RxNorm: 440282 1 Tablet(s) PO BID 05/31/20 18 2017 Inactive lisinopril 2.5 mg tablet RxNorm: 793929 1 Tablet(s) PO daily 05/31/20 18 2017 Inactive metoprolol succinate ER 50 mg tablet,extended release 24 hr RxNorm: 730194 1 Tablet(s) PO daily 05/31/20 18 2017 Inactive levothyroxine 50 mcg tablet RxNorm: 886070 1 Tablet(s) PO daily 05/31/20 18 2017 Inactive TRUEplus Lancets 30 gauge RxNorm: 1 Lancets Miscellaneous QAM 05/31/20 18 2017 Inactive 100/box Ventolin HFA 90 mcg/actuation aerosol inhaler RxNorm: 248989 2 Puff(s) INH QID 05/31/20 18 2017 Inactive Aleve 220 mg capsule RxNorm: 1783366 1 Capsule(s) PO BID 05/31/20 18 2018 Inactive ranitidine 150 mg tablet RxNorm: 316823 1 Tablet(s) PO BID 05/31/20 18 2017 Inactive gabapentin 300 mg capsule RxNorm: 041246 1 Capsule(s) PO TID as needed 05/31/20 18 2017 Inactive atorvastatin 20 mg tablet RxNorm: 657835 1 Tablet(s) PO QHS 05/31/20 18 2017 Inactive True Metrix Glucose Test Strip RxNorm: 1 Test Strips Miscellaneous QAM 05/31/20 18 2017 Inactive 50/container Calcium 600-D3 Plus 600 mg calcium-800 unit-50 mg tablet RxNorm: 1 Tablet(s) PO daily take an additonal tablet for itching. 05/31/20 18 2017 Inactive hydrochlorothiazide 12.5 mg tablet RxNorm: 645034 1 Tablet(s) PO QAM 05/31/20 18 2017 Inactive Flintstones Complete (iron) 18 mg iron chewable tablet RxNorm: 1 Tablet(s) PO daily 05/31/20 18 2017 Inactive d-mannose oral powder RxNorm: PO 18 2021 Inactive True Metrix Glucose Meter RxNorm: miscellaneous 08/17/20 19 2018 Inactive sertraline 50 mg tablet RxNorm: 389821 1 Tablet(s) PO daily 11/28/19 20 2019 Inactive loperamide 2 mg tablet RxNorm: 989682 oral 09/29/20 19 2018 Inactive Symbicort 160 mcg-4.5 mcg/actuation HFA aerosol inhaler RxNorm: 0318331 2 Puff(s) INH BID 08/17/20 19 2018 Inactive Medication Administered No Medication Administered data Procedures Procedure Codes Date Mini Mental State Exam CPT-4: DMMA 1 Annual Wellness Visit (Subsequent Visit) CPT-4: G0439 01/13/2021 Advanced Care Planning CPT-4: VACP Fall Risk Assessment SNOMED CT: 82420070 4 CPT-4: DFRA01/13/2021emmes Fany AssessmentCPT-4: DSWA12/17/2020Urinalysis, dip stickCPT-4: 104889209/24/2020Patient Health QuestionnaireCPT-4: DPHQ 08/19/2020ElectrocardiogramCPT-4: 369839705/14/2020Tobacco Assessment/Screening CPT-4: TCA01/01/2020Fall Risk AssessmentSNOMED CT: 257597660 CPT-4: DFRA01/01/2020Functional AssessmentCPT-4: DFA01/01/2020Semmes Fany AssessmentCPT-4: DSWA11/28/2019Patient Health QuestionnaireCPT-4: DPHQ11/28/2019 [place] Fany AssessmentCPT-4: DSWA10/17/2019HypertensionCPT-4: HTN10/17/[address]: 040023879 CPT-4: DFRA09/19/2019Functional AssessmentCPT-4: DFA111/20/2018Urinalysis, dip stickCPT-4: 9294226Tobacco Assessment/ScreeningCPT-4: TCA05/24/2019 Patient Health QuestionnaireCPT-4: DPHQ05/24/2019AHA/REBECCA Classification AssessmentCPT-4: DAHA04/25/2019Controlled Substance ReportCPT-4: CTRSU04/25/2019 Urinalysis, dip stickCPT-4: 415731103/28/2019Urinalysis, dip stickCPT-4: 25457 03/28/20193235U4F-IvdnlqpmbbqloggFVW-3: 33600ZxnadngJ1X-BbfenkdjfsrdktfKZJ-8: 16574 NdwqboxQ4O-SyfitzkzrjwefvcYTO-1: 24223SsrrmgfE1I-XkosjpyqzdofoezGGI-0: 49212 RnotzueN0K-VivagzalmlziqktJQH-3: 08579KwnczluV2Y-JftmlqxhnmbkcgtGHW-2: 55243 ItrbymhK1V-LqinltimwpgkyjaIQO-7: 66958PewubttTcebqyewmt ReferralSNOMED CT: 505320012 CPT-4: M54Dlouebf Reason For Visit No Reason For Visit data Plan of Care Planned Activity Notes Codes Status Date Referral: Pending Gynecology Referral Informatio n Referral ProcessedReferral: Pending Pulmonology Referral InformationReferralProcessed Referral: Pending Psychiatry Referral InformationReferralInitiatedReferral: Pending Respiratory Services Referral InformationReferralInitiatedReferral: Pending Ophthalmology Referral InformationReferralInitiatedReferral: [facility] WPtel: [address] [place] [address] USWriter placed a call out to the patient to notify her that it has been recommended that she be seenby a urologist. Patient agreed to be seen, does not have a provider of choice and no transportationissues. Order Takers Supervisor faxed referral and clinical notes to [facility] in [place], [place] near the patient's home. Patient to [...] seen and prefers a provider in the [place] or [place] area. Order Takers Supervisor placed a call out to everyone listed in the area and the only location that was able to accept the patient's insurance was [facility] [address] [place] [address] and spoke with Maylin. Maylin asked that the patient's referral, face sheet and visit notes be faxed to . Order Takers Supervisor faxed over requested documents. Patient appointment confirmation letter generated and mailed to her home address. Patient to call to schedule an appointment.ProcessedReferral: [facility] [place] [facility] WPtel: [address] [place], [place] [id number] USPatient notified that it has been advised that she be seen by Neurology. Patient agreed to be seen and prefers to be seen by a provider in the [place], [place] area. Patient denies any concerns with transportation, and prefers to schedule her own appointment. Order Takers Supervisor placed a call out to [facility] and spoke with Neeraj [...]
--- OUTSIDE RECORDS SUMMARY | 2023-12-07 02:15 | XMS_ITS | CCD ---
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 Naturalization Examiner Name Role Phone Palomo KING, Anna Primary Care Provider Unav ailable Unavailable Chronic Care Management Unavaila ble Summary Purpose DataExchange Insurance Providers Payer name Policy type / Coverage type Covered democrat ID Effective Begin Date Effective End Date SUKI MAYO [id number] Unknown Unknown Family history Mother Diagnosis Age [...] 05/31/2018 Education level Unknown Some High School 10th05/31/20182134VmvuvpxpyeYchmsljJbajknapxa67/29/2018Tobacco historySNOMED CT: 905675372Ucq never smoked or chewed yuydekb5405/31/2018Alcohol historySNOMED CT: 616468357Yinrb drinks bvywqdk4705/31/2018Has the patient ever used illegal drugs? UnknownHas never used illegal drugs05/31/2018DNR Order/ Advanced Directive UnknownFull Code05/31/2018 Allergies, Adverse Reactions, Alerts Substance Reaction Codes Entered Date Inactivated Date Status *No known food allergies Htbxwax3809/06/2018No Inactive DateActiveMethylprednisolonehivesRxNorm: 6902 09/06/2018No Inactive DateActive Problems Condition Codes Effective Dates Condition St atus Anorexia ICD-10: R63.0 ICD-9: 783.003/ctiveHypertensive heart disease with heart failureICD-10: I11.0 ICD-9: 402.9107/ActiveObstructive sleep apnea (adult) (pediatric)ICD-10: G47.33 ICD-9: 327.2309/ActiveType 2 diabetes mellitus with peripheral neuropathy ICD-10: E11.42 ICD-9: 250.6002/ActiveApnea, not elsewhere classifiedICD-10: R06.81 ICD-9: 786.0305InactiveChest pain, unspecifiedICD-10: R07.9 ICD-9: 786.5002InactiveChronic kidney disease, unspecifiedICD-10: N18.9 ICD-9: 585.909/InactiveDiarrheaICD-10: R19.7 ICD-9: 787.9112InactiveEncounter for immunizationICD-10: Z23 ICD-9: V03.907InactiveEncounter for preprocedural cardiovascular examinationICD-10: Z01.810 ICD-9: V72.8106InactiveHeadacheICD-10: R51 ICD-9: 784.001InactiveOther longterm (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ICD-10: Z79.899 ICD-9: V58.6907InactiveType 2 [...] T23.191D ICD-9: V58.8902/1ResolvedUrinary tract infectionICD-10: N39.0 ICD-9: 599.012/ResolvedEssential (primary) hypertensionICD-10: I10 ICD-9: 401.901ActiveGERD (gastroesophageal reflux disease)ICD-10: K21.9 ICD-9: 530.8112ActiveHistory of surgery on right wristICD-10: Z98.890 ICD-9: V45.8901/1ActiveAdjustment disorder with mixed anxiety and depressed moodICD-10: F43.23 ICD-9: 309.28111/06/2017ActiveChronic kidney disease, stage 2 (mild)ICD-10: N18.2 ICD-9: 585.201/1ActivePolyneuropathy, unspecifiedICD-10: G62.9 ICD-9: 356.908/ActiveEncounter for screening, unspecifiedICD-10: Z13.9 ICD-9: V82.912Active(Z12.4-V76.2) Encounter for screening for malignant neoplasm of cervixICD-10: Z12.4 ICD-9: V76.207ActiveEncounter for immunizationICD-10: Z23 ICD-9: V04.8109ActiveHyperlipidemia, unspecifiedICD-10: E78.5 ICD-9: 272.408/ActiveHypothyroidism, unspecifiedICD-10: E03.9 ICD-9: 244.912Active(Z12.11-V76.51) Encounter for screening for malignant neoplasm of colonICD-10: Z12.11 ICD-9: V76.5107/Active(Z12.31-V76.12) Encounter for screening mammogram for malignant neoplasm of breastICD-10: Z12.31 ICD-9: V76.1207/ActiveAdult BMI 50.0-59.9 kg/sq mICD-10: Z68.43 ICD-9: V85.4308/ActiveEncounter for screening for tobacco useICD-10: Z01.89 ICD-9: V72.8503ActiveSyncope and collapseICD-10: R55 ICD-9: 780.203ActiveFecal incontinenceICD-10: R15.9 [...] Fill Instructions lisinopril 2.5 mg tablet RxNorm: 030866 TAKE 1 TABLET BY MOUTH DAILY 01/06/202020 Inactive gabapentin 300 mg capsule RxNorm: 249496 TAKE 1 CAPSULE BY MOUTH THREE TIMES A DAY 01/06/20 21 2020 Inactive Singulair 10 mg tablet RxNorm: 794580 TAKE (1) TABLET BY MOUTH DAILY 01/06/202020 Inactive metformin 1,000 mg tablet RxNorm: 404188 1 Tablet(s) Oral two times a day 01/06/202020 Inactive atorvastatin 40 mg tablet RxNorm: 613272 1 Tablet(s) Oral every day 12/06/19 21 2020 Inactive omeprazole 20 mg capsule,delayed release RxNorm: 633636 1 Capsule(s) Oral every evening 11/24/19 21 2020 Inactive famotidine 10 mg tablet RxNorm: 801508 1 Tablet(s) Oral every morning 11/24/19 21 2020 Inactive Alcohol Prep Pads RxNorm: 406158 USE EACH MORNING 10/14/19 21 2020 Inactive omeprazole 20 mg capsule,delayed release RxNorm: 219237 1 Capsule(s) Oral two times a day 10/13/19 21 2021 Inactive omeprazole 20 mg capsule,delayed release RxNorm: 642751 TAKE 1 CAPSULE BY MOUTH EVERY DAY 10/08/192021 Inactive Macrobid 100 mg capsule RxNorm: 174158 1 Capsule(s) Oral every 12 hours with food 10/01/202020 Inactive omeprazole 20 mg capsule,delayed release RxNorm: 583114 1 Capsule(s) Oral two times a day 09/24/20 20 2021 Inactive metformin 1,000 mg tablet RxNorm: 078946 1 Tablet(s) Oral two times a day 08/19/20 20 2020 Inactive start on September 11, 2020 metformin 500 mg tablet RxNorm: 041269 1 Tablet(s) Oral two times a day take with 500mg to equal 1000mg 08/19/20 20 2019 Inactive cetirizine 10 mg tablet RxNorm: 5615931 TAKE (1) TABLET BY MOUTH DAILY 07/11/20 20 2020 Inactive gabapentin 300 mg capsule RxNorm: 919551 TAKE 1 CAPSULE BY MOUTH THREE TIMES DAILY 07/11/20 20 2020 Inactive metformin 500 mg tablet RxNorm: 596197 1 Tablet(s) Oral two times a day 07/08/20 20 2019 Inactive loperamide 2 mg tablet RxNorm: 329608 1 Tablet(s) Oral as needed take one tablet after each loose stool, maximum of 8 tablets in 24 hours 06/24/20 20 2021 Inactive Sudafed 12 Hour 120 mg tablet,extended release RxNorm: 4493818 TAKE 1 TABLET BY MOUTH EVERY 12 HOURS NEEDED 06/11/20 20 2019 Inactive hydrochlorothiazide 25 mg tablet RxNorm: 232153 TAKE (1) TABLET BY MOUTH EVERY DAY 06/11/20 20 2019 Inactive omeprazole 20 mg capsule,delayed release RxNorm: 272341 TAKE 1 CAPSULE BY MOUTH EVERY DAY 05/14/20 20 2020 Inactive metformin 500 mg tablet RxNorm: 401063 1 Tablet(s) Oral every day 05/12/20 20 2019 Inactive True Metrix Glucose Test Strip RxNorm: 1 Test Strips Miscellaneous two times a day as needed 04/17/20 No Stop Date Active metformin 500 mg tablet RxNorm: 239335 1 Tablet(s) Oral every day 04/17/20 20 2019 Inactive diclofenac sodium 75 mg tablet,delayed release RxNorm: 765791 1 Tablet(s) PO BID 04/14/20 20 2021 Inactive This refill negates all other refills of this medication Sudafed 12 Hour 120 mg tablet,extended release RxNorm: 0114953 TAKE 1 TABLET BY MOUTH EVERY 12 HOURS NEEDED 03/14/20 20 2019 Inactive True Metrix Glucose Test Strip RxNorm: 1 Test Strips Miscellaneous every morning 03/13/20 20 2019 Inactive 100/container True Metrix Glucose Test Strip RxNorm: 1 Test Strips Miscellaneous QA 02/22/20 20 2019 Inactive 100/container loperamide 2 mg tablet RxNorm: 419682 1 Tablet(s) Oral as needed take one tablet after each loose stool, maximum of 8 tablets in 24 hours 02/22/20 20 2019 Inactive levothyroxine 50 mcg tablet RxNorm: 840530 1 Tablet(s) PO daily 01/17/20 20 2020 Inactive cetirizine 10 mg tablet RxNorm: 5616939 1 Tablet(s) PO daily 01/17/20 20 2019 Inactive loperamide 2 mg tablet RxNorm: 224996 1 Tablet(s) Oral as needed take one tablet after each loose stool, maximum of 8 tablets in 24 hours 01/17/2019 02/21/ 2020 Inactive quetiapine 100 mg tablet RxNorm: 997246 1 Tablet(s) Oral every night at bedtime 01/17/20 20 2019 Inactive gabapentin 300 mg capsule RxNorm: 541849 1 Capsule(s) PO TID 01/17/20 20 2019 Inactive levothyroxine 50 mcg tablet RxNorm: 044294 1 Tablet(s) PO daily 01/15/20 20 2019 Inactive lisinopril 2.5 mg tablet RxNorm: 955789 1 Tablet(s) PO daily 01/15/20 20 2020 Inactive gabapentin 300 mg capsule RxNorm: 750461 1 Capsule(s) PO TID 01/15/20 20 2019 Inactive cetirizine 10 mg tablet RxNorm: 9741078 1 Tablet(s) PO daily 01/15/20 20 2019 Inactive Singulair 10 mg tablet RxNorm: 896213 1 Tablet(s) PO daily 01/15/20 20 2020 Inactive gentamicin 0.3 % eye drops RxNorm: 003527 1 Drop(s) ophthalmic (eye) four times a day 12/29/19 20 2019 Inactive gentamicin 0.3 % eye drops RxNorm: 592067 1 Drop(s) ophthalmic (eye) four times a day 12/29/19 20 2019 Inactive gentamicin 0.3 % eye drops RxNorm: 979595 1 Drop(s) ophthalmic (eye) four times a day 12/29/19 20 2019 Inactive hydrochlorothiazide 25 mg tablet RxNorm: 094629 1 Tablet(s) Oral every day 12/21/19 20 2019 Inactive Sudafed 12 Hour 120 mg tablet,extended release RxNorm: 5210904 TAKE (1) TABLET BY MOUTH EVERY 12 HOURS NEEDED 12/21/19 20 2019 Inactive loperamide 2 mg tablet RxNorm: 694582 1 Tablet(s) Oral as needed take one tablet after each loose stool, maximum of 8 tablets in 24 hours 12/11/19 20 2019 Inactive loperamide 2 mg tablet RxNorm: 788570 1 Tablet(s) Oral as needed take one tablet after each loose stool, maximum of 8 tablets in 24 hours 12/11/19 20 2019 Inactive atorvastatin 40 mg tablet RxNorm: 762097 1 Tablet(s) Oral every day 11/29/19 20 2020 Inactive quetiapine 100 mg tablet RxNorm: 920369 1 Tablet(s) Oral every night at bedtime 11/28/19 20 2019 Inactive sertraline 100 mg tablet RxNorm: 375716 1 Tablet(s) Oral 11/28/19 20 2019 Inactive omeprazole 20 mg capsule,delayed release RxNorm: 656456 1 Capsule(s) Oral every day 11/20/19 20 2019 Inactive amoxicillin 250 mg capsule RxNorm: 939728 1 Capsule(s) Oral three times a day 11/07/19 20 2019 Inactive multivitamin with iron-mineral tablet RxNorm: 1 Tablet(s) Oral every day 10/29/192021 Inactive cetirizine 10 mg tablet RxNorm: 3162764 1 Tablet(s) PO daily 10/20/19 20 2019 Inactive This refill negates all other refills of this medication. Please do not auto refill Singulair 10 mg tablet RxNorm: 317966 1 Tablet(s) PO daily 10/20/19 20 2019 Inactive This refill negates all other refills of this medication gabapentin 300 mg capsule RxNorm: 058781 1 Capsule(s) PO TID 10/20/19 20 2019 Inactive lisinopril 2.5 mg tablet RxNorm: 700813 1 Tablet(s) PO daily 10/20/19 20 2019 Inactive levothyroxine 50 mcg tablet RxNorm: 548733 1 Tablet(s) PO daily 10/20/19 20 2019 Inactive This refill negates all other refills of this medication fenugreek seed extract 500 mg capsule RxNorm: 1 Capsule(s) Oral three times a day 10/17/19 20 2021 Inactive hydrochlorothiazide 25 mg tablet RxNorm: 852894 1 Tablet(s) Oral every day 10/17/19 20 2019 Inactive Alcohol Prep Pads RxNorm: 247498 1 Patch TOP QAM 10/16/19 20 2020 Inactive loperamide 2 mg tablet RxNorm: 711487 1 Tablet(s) Oral as needed take one [...] 2019 Inactive hydrochlorothiazide 25 mg tablet RxNorm: 471743 1 Tablet(s) Oral every day 09/19/20 19 2019 Inactive Sudafed 12 Hour 120 mg tablet,extended release RxNorm: 5895381 1 Tablet(s) Oral every 12 hours as needed 09/11/20 19 2018 Inactive omeprazole 20 mg capsule,delayed release RxNorm: 990578 1 Capsule(s) Oral every day 09/07/20 19 2019 Inactive Sudafed 12 Hour 120 mg tablet,extended release RxNorm: 7089937 1 Tablet(s) Oral every 12 hours as needed 09/04/20 19 2018 Inactive pantoprazole 40 mg tablet,delayed release RxNorm: 788954 1 Tablet(s) Oral every day 08/24/20 19 2018 Inactive discontinue any other H2Blkr. and PPI albuterol sulfate 2.5 mg/3 mL (0.083 %) solution for nebulization RxNorm: 614545 1 Vial Inhalation every four hours as needed as needed for dyspnea 08/17/20 19 2019 Inactive 60/box. This refill negates all other refills of this medication. Please do not fill early. Please do not auto refill. Symbicort 160 mcg-4.5 mcg/actuation HFA aerosol inhaler RxNorm: 7943903 2 Puff(s) INH BID 08/17/20 19 No Stop Date Active Alcohol Prep Pads RxNorm: 424587 1 Patch TOP QAM 08/17/20 19 2019 Inactive Ventolin HFA 90 mcg/actuation aerosol inhaler RxNorm: 882162 2 Puff(s) INH QID 08/09/20 19 2019 Inactive Please do not fill early. Please do not auto refill. This refill negates all other refills of this medication True Metrix Glucose Test Strip RxNorm: 1 Test Strips Miscellaneous QAM 08/09/20 19 2019 Inactive 100/container atorvastatin 40 mg tablet RxNorm: 443416 1 Tablet(s) Oral every day 07/04/20 19 2019 Inactive levmetamfetamine 50 mg nasal inhaler RxNorm: 1 Unit(s) NASAL Q3-4H Do not use more than every 3 hours or 8 times/24hours 06/26/20 19 2021 Inactive Please do not auto refill. This refill negates all other refills of this medication buspirone 7.5 mg tablet RxNorm: 926487 1 Tablet(s) PO BID 06/26/20 19 2020 Inactive This refill negates all other refills of this medication hydrochlorothiazide 12.5 mg tablet RxNorm: 156408 1 Tablet(s) PO QAM 06/26/20 19 2019 Inactive Ventolin HFA 90 mcg/actuation aerosol inhaler RxNorm: 734563 2 Puff(s) INH QID 06/26/20 19 2018 Inactive Please do not fill early. Please do not auto refill. This refill negates all other refills of this medication Singulair 10 mg tablet RxNorm: 176368 1 Tablet(s) PO daily 06/26/20 19 2019 Inactive This refill negates all other refills of this medication cetirizine 10 mg tablet RxNorm: 0138396 1 Tablet(s) PO daily 06/26/20 19 2019 Inactive This refill negates all other refills of this medication. Please do not auto refill levothyroxine 50 mcg tablet RxNorm: 563885 1 Tablet(s) PO daily 06/26/20 19 2019 Inactive This refill negates all other refills of this medication diclofenac sodium 75 mg tablet,delayed release RxNorm: 863108 1 Tablet(s) PO BID 06/26/20 19 2019 Inactive This refill negates all other refills of this medication ranitidine 150 mg tablet RxNorm: 920450 1 Tablet(s) PO BID 06/26/20 19 2018 Inactive This refill negates all other refills of this medication Calcium 600-D3 Plus (mag-zinc) 600 mg calcium-800 unit-50 mg tablet RxNorm: 1 Tablet(s) PO daily take an additonal tablet for itching. 06/26/20 19 2018 Inactive This refill negates all other refills of this medication albuterol sulfate 2.5 mg/3 mL (0.083 %) solution for nebulization RxNorm: 804317 1 Vial INH QID 06/26/20 19 2018 Inactive 60/box. This refill negates all other refills of this medication. Please do not fill early. Please do not auto refill. lisinopril 2.5 mg tablet RxNorm: 414565 1 Tablet(s) PO daily 06/21/20 19 2019 Inactive gabapentin 300 mg capsule RxNorm: 732352 1 Capsule(s) PO TID 06/21/20 19 2019 Inactive atorvastatin 20 mg tablet RxNorm: 461046 1 Tablet(s) PO QHS 06/07/20 19 2018 Inactive This refill negates all other refills of this medication TRUEplus Lancets 30 gauge RxNorm: 1 Lancets Miscellaneous QAM 05/29/20 19 2018 Inactive 100/box gabapentin 300 mg capsule RxNorm: 978156 1 Capsule(s) PO TID 05/03/20 19 2018 Inactive Flintstones Complete (iron) 18 mg iron chewable tablet RxNorm: 1 Tablet(s) PO daily 04/04/20 19 2021 Inactive This refill negates all other refills of this medication gabapentin 300 mg capsule RxNorm: 713727 1 Capsule(s) PO TID as needed 02/01/20 19 2018 Inactive True Metrix Glucose Test Strip RxNorm: 1 Test Strips Miscellaneous QAM 02/01/20 19 2018 Inactive 100/container Alcohol Prep Pads RxNorm: 833460 1 Patch TOP QAM 02/01/20 19 2018 Inactive TRUEplus Lancets 30 gauge RxNorm: 1 Lancets Miscellaneous QAM 02/01/20 19 2018 Inactive 100/box lisinopril 2.5 mg tablet RxNorm: 973191 1 Tablet(s) PO daily 12/28/19 19 2018 Inactive ranitidine 150 mg tablet RxNorm: 124429 1 Tablet(s) PO BID 10/21/192018 Inactive This refill negates all other refills of this medication albuterol sulfate 2.5 mg/3 mL (0.083 %) solution for nebulization RxNorm: 606348 1 Vial INH QID 10/21/19 19 2018 [...] this medication gabapentin 300 mg capsule RxNorm: 391697 1 Capsule(s) PO TID as needed 10/21/192018 Inactive atorvastatin 20 mg tablet RxNorm: 126168 1 Tablet(s) PO QHS 10/21/19 19 2018 Inactive This refill negates all other refills of this medication trazodone 50 mg tablet RxNorm: 254795 1 Tablet(s) PO QHS 10/21/19 19 2018 Inactive This refill negates all other refills of this medication Ventolin HFA 90 mcg/actuation aerosol inhaler RxNorm: 491970 2 Puff(s) INH QID 10/21/19 2018 Inactive Please do not fill early. Please do not auto refill. This refill negates all other refills of this medication Calcium 600-D3 Plus 600 mg calcium-800 unit-50 mg tablet RxNorm: 1 Tablet(s) PO daily take an additonal tablet for itching. 10/21/19 19 2018 Inactive This refill negates all other refills of this medication Singulair 10 mg tablet RxNorm: 447753 1 Tablet(s) PO daily 10/21/192018 Inactive This refill negates all other refills of this medication buspirone 7.5 mg tablet RxNorm: 278525 1 Tablet(s) PO BID 10/21/192018 Inactive This refill negates all other refills of this medication diclofenac sodium 75 mg tablet,delayed release RxNorm: 265121 1 Tablet(s) PO BID 10/21/192018 Inactive This refill negates all other refills of this medication hydrochlorothiazide 12.5 mg tablet RxNorm: 922985 1 Tablet(s) PO QAM 10/21/192018 Inactive metoprolol succinate ER 50 mg tablet,extended release 24 hr RxNorm: 518400 1 Tablet(s) PO daily 10/21/192018 Inactive This refill negates all other refills of this medication levothyroxine 50 mcg tablet RxNorm: 859918 1 Tablet(s) PO daily 10/21/192018 Inactive This refill negates all other refills of this medication cetirizine 10 mg tablet RxNorm: 0518346 1 Tablet(s) PO daily 10/21/192018 Inactive This refill negates all other refills of this medication. Please do not auto refill Flintstones Complete (iron) 18 mg iron chewable tablet RxNorm: 1 Tablet(s) PO daily 10/21/192018 Inactive This refill negates all other refills of this medication buspirone 7.5 mg tablet RxNorm: 363287 1 Tablet(s) PO BID 10/12/192018 Inactive cetirizine 10 mg tablet RxNorm: 2235813 1 Tablet(s) PO daily 09/28/20 18 2018 Inactive Guaiasorb DM 10 mg-100 mg/5 mL oral liquid RxNorm: 034864 10 Milliliter(s) PO As needed every 4 hr 09/24/20 18 2018 Inactive Vicks Vaporub 4.7 %-1.2 %-2.6 % topical ointment RxNorm: 3432310 1 Application TOP TID 09/24/20 18 2018 Inactive levmetamfetamine 50 mg nasal inhaler RxNorm: 1 Unit(s) NASAL Q3-4H 09/24/20 18 2017 Inactive sertraline 50 mg tablet RxNorm: 631893 1 Tablet(s) PO daily 09/09/20 18 2018 Inactive Please note dose trazodone 50 mg tablet RxNorm: 611467 1 Tablet(s) PO QHS 09/06/20 18 2018 Inactive sertraline 50 mg tablet RxNorm: 492029 1 Tablet(s) PO daily 09/06/20 18 2017 Inactive amoxicillin 500 mg tablet RxNorm: 891420 1 Tablet(s) PO Q12H 08/31/20 18 2017 Inactive albuterol sulfate 2.5 mg/3 mL (0.083 %) solution for nebulization RxNorm: 451250 1 Vial INH QID 08/10/202018 Inactive 60/box. Please do not fill early. Please do not auto refill. Prozac 10 mg capsule RxNorm: 488373 1 Capsule(s) PO daily 08/09/20 18 2017 Inactive buspirone 7.5 mg tablet RxNorm: 453607 1 Tablet(s) PO BID 08/09/20 18 2018 Inactive gabapentin 300 mg capsule RxNorm: 205667 1 Capsule(s) PO TID as needed 08/01/20 18 2018 Inactive hydrochlorothiazide 12.5 mg tablet RxNorm: 239818 1 Tablet(s) PO QAM 08/01/20 18 2018 Inactive ranitidine 150 mg tablet RxNorm: 129294 1 Tablet(s) PO BID 08/01/20 18 2018 Inactive Macrobid 100 mg capsule RxNorm: 543979 1 Capsule(s) PO Q12H 06/21/20 18 2017 Inactive Singulair 10 mg tablet RxNorm: 067363 1 Tablet(s) PO daily 06/14/20 18 2018 Inactive Ventolin HFA 90 mcg/actuation aerosol inhaler RxNorm: 5945373 2 Puff(s) INH QID 06/14/20 18 2018 Inactive Singulair 10 mg tablet RxNorm: 969510 1 Tablet(s) PO daily 06/14/20 18 2017 Inactive buspirone 7.5 mg tablet RxNorm: 435806 1 Tablet(s) PO BID 06/14/20 18 2017 Inactive Prozac 10 mg capsule RxNorm: 427907 1 Capsule(s) PO daily 06/14/20 18 2017 Inactive Neilmed Pediatric Sinus Rinse Refill packet RxNorm: 1 Unit Dose NASAL PRN 05/31/20 18 2021 Inactive diclofenac sodium 75 mg tablet,delayed release RxNorm: 147330 1 Tablet(s) PO BID 05/31/20 18 2017 Inactive lisinopril 2.5 mg tablet RxNorm: 448687 1 Tablet(s) PO daily 05/31/20 18 2017 Inactive metoprolol succinate ER 50 mg tablet,extended release 24 hr RxNorm: 188730 1 Tablet(s) PO daily 05/31/20 18 2017 Inactive levothyroxine 50 mcg tablet RxNorm: 412696 1 Tablet(s) PO daily 05/31/20 18 2017 Inactive TRUEplus Lancets 30 gauge RxNorm: 1 Lancets Miscellaneous QAM 05/31/20 18 2017 Inactive 100/box Ventolin HFA 90 mcg/actuation aerosol inhaler RxNorm: 949789 2 Puff(s) INH QID 05/31/20 18 2017 Inactive Aleve 220 mg capsule RxNorm: 5952950 1 Capsule(s) PO BID 05/31/20 18 2018 Inactive ranitidine 150 mg tablet RxNorm: 874070 1 Tablet(s) PO BID 05/31/20 18 2017 Inactive gabapentin 300 mg capsule RxNorm: 055436 1 Capsule(s) PO TID as needed 05/31/20 18 2017 Inactive atorvastatin 20 mg tablet RxNorm: 856587 1 Tablet(s) PO QHS 05/31/20 18 2017 Inactive True Metrix Glucose Test Strip RxNorm: 1 Test Strips [facility] 05/31/20 18 2017 Inactive 50/container Calcium 600-D3 Plus 600 mg calcium-800 unit-50 mg tablet RxNorm: 1 Tablet(s) PO daily take an additonal tablet for itching. 05/31/20 18 2017 Inactive hydrochlorothiazide 12.5 mg tablet RxNorm: 825335 1 Tablet(s) PO QAM 05/31/20 18 2017 Inactive Flintstones Complete (iron) 18 mg iron chewable tablet RxNorm: 1 Tablet(s) PO daily 05/31/20 18 2017 Inactive d-mannose oral powder RxNorm: PO 18 2021 Inactive True Metrix Glucose Meter RxNorm: miscellaneous 08/17/20 19 2018 Inactive sertraline 50 mg tablet RxNorm: 771064 1 Tablet(s) PO daily 11/28/19 20 2019 Inactive loperamide 2 mg tablet RxNorm: 032096 oral 09/29/20 19 2018 Inactive Symbicort 160 mcg-4.5 mcg/actuation HFA aerosol inhaler RxNorm: 4355048 2 Puff(s) INH BID 08/17/20 19 2018 Inactive Medication Administered No Medication Administered data Procedures Procedure Codes Date [place] Assessment CPT-4: DSWA 12/01 Urinalysis, dip stick CPT-4: 66548 09/24/2020 Patient Health Questionnaire CPT-4: DPHQ Electrocardiogram CPT-4: 54106 05/14/2020 Tobacco Assessment/Screening CPT-4: TCA Fall Risk Assessment SNOMED CT: 59215099 4 CPT-4: DFRA01/01/2020Functional AssessmentCPT-4: DFA01/01/2020[place] F[place] AssessmentCPT-4: DSWA11/28/2019Patient Health QuestionnaireCPT-4: DPHQ11/28/2019 [place] AssessmentCPT-4: DSWA10/17/2019HypertensionCPT-4: HTN10/17/[address]: 812775758 CPT-4: DFRA09/19/2019Functional AssessmentCPT-4: DFA111/20/2018Urinalysis, dip stickCPT-4: 1612109Tobacco Assessment/ScreeningCPT-4: TCA05/24/2019 Patient Health QuestionnaireCPT-4: DPHQ05/24/2019AHA/REBECCA Classification AssessmentCPT-4: DAHA04/25/2019Controlled Substance ReportCPT-4: CTRSU04/25/2019 Urinalysis, dip stickCPT-4: 1993057Urinalysis, dip stickCPT-4: 09180 03/28/20198410P4N-BaluaouvcphwtqrILC-2: 53126MvkmvaiI7I-NprupjvlfubenupNWW-8: 09744 CwmrncoS9B-PipuxfjdvmmdpegQVV-8: 96151WrzrmdyW5Z-YfowwrsepuasckxUMD-7: 97480 LsrwrftJ4R-JmfpeezahxfyzmsQYR-9: 03549HzqymylN4X-XpcokblemhtaawmDNC-6: [address]: 832761839 CPT-4: V81Tjpwdfb Reason For Visit No Reason For Visit data Plan of Care Planned Activity Notes Codes Status Date Referral: Pending Gynecology Referral Informatio n Referral ProcessedReferral: Pending Pulmonology Referral InformationReferralProcessed Referral: Pending Psychiatry Referral InformationReferralInitiatedReferral: Pending Respiratory Services Referral InformationReferralInitiatedReferral: Pending Ophthalmology Referral InformationReferralInitiatedReferral: [facility] WPtel: [address] [place], [place] [phone] USWriter placed a call out to the patient to notify her that it has been recommended that she be seenby a urologist. Patient agreed to be seen, does not have a provider of choice and no transportationissues. [employer]ician faxed referral and clinical notes to [facility] in [place], [place] near the patient's home. [...] seen and prefers a provider in the [place] or [place] area. [employer]ician placed a call out to everyone listed in the area and the only location that was able to accept the patient's insurance was [address] [id number] and spoke with Maylin. Maylin asked that the patient's referral, face sheet and visit notes be faxed to . [employer]ician faxed over requested documents. Patient appointment confirmation letter generated and mailed to her home address. Patient to call to schedule an appointment.ProcessedReferral: [facility] WPtel: [address] [place] [address] [place], [place] [id number] USPatient notified that it has been advised that she be seen by Neurology. Patient agreed to be seen and prefers to be seen by a provider in the [place], [place] area. Patient denies any concerns with transportation, and prefers to schedule her own appointment. [email or web address] and spoke with Neeraj [...]
--- OUTSIDE RECORDS SUMMARY | 2023-12-07 02:15 | XMS_ITS | CCD ---
Author Name Leena Culver NP Address [address] [place] [address] [place] [id number] Phone Organization [employer] [facility] Phone Care Team Providers Care System Developer Associate Manager Name Role Phone Anna Culver NP Primary Care Provider Unav ailable Unavailable Chronic Care Management Unavaila ble Summary Purpose DataExchange Insurance Providers Payer name Policy type / Coverage type Covered constitution party ID Effective Begin Date Effective End Date SUKI MAYO [id number] Unknown Unknown Family history Mother Diagnosis Age [...] 05/31/2018 Education level Unknown Some High School 10th05/31/20184435JqthqxixllQrotmqqOhuxxffqrm05/29/2018Tobacco historySNOMED CT: 710446196Spj never smoked or chewed hswqjxs2505/31/2018Alcohol historySNOMED CT: 117164768Vntqt drinks torqzfr1505/31/2018Has the patient ever used illegal drugs? UnknownHas never used illegal drugs05/31/2018DNR Order/ Advanced Directive UnknownFull Code05/31/2018 Allergies, Adverse Reactions, Alerts Substance Reaction Codes Entered Date Inactivated Date Status *No known food allergies Uwozgis0509/06/2018No Inactive DateActiveMethylprednisolonehivesRxNorm: 6902 09/06/2018No Inactive DateActive Problems Condition Codes Effective Dates Condition St atus Anorexia ICD-10: R63.0 ICD-9: 783.003/1ActiveHypertensive heart disease with heart failureICD-10: I11.0 ICD-9: 402.9107/ActiveObstructive sleep apnea (adult) (pediatric)ICD-10: G47.33 ICD-9: 327.2309/ActiveType 2 diabetes mellitus with peripheral neuropathy ICD-10: E11.42 ICD-9: 250.6002/ActiveApnea, not elsewhere classifiedICD-10: R06.81 ICD-9: 786.0305/10/2018InactiveChest pain, unspecifiedICD-10: R07.9 ICD-9: 786.5002/InactiveChronic kidney disease, unspecifiedICD-10: N18.9 ICD-9: 585.909/InactiveDiarrheaICD-10: R19.7 ICD-9: 787.9112InactiveEncounter for immunizationICD-10: Z23 ICD-9: V03.907/InactiveEncounter for preprocedural cardiovascular examinationICD-10: Z01.810 ICD-9: V72.8106/InactiveHeadacheICD-10: R51 ICD-9: 784.001/10/2018InactiveOther 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 supervisor (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ICD-10: Z79.899 ICD-9: V58.6907/InactiveType 2 [...] (mild)ICD-10: N18.2 ICD-9: 585.201/1ActivePolyneuropathy, unspecifiedICD-10: G62.9 ICD-9: 356.908ActiveEncounter for screening, unspecifiedICD-10: Z13.9 ICD-9: V82.912Active(Z12.4-V76.2) Encounter for screening for malignant neoplasm of cervixICD-10: Z12.4 ICD-9: V76.207/ActiveEncounter for immunizationICD-10: Z23 ICD-9: V04.8109/06/2020ActiveHyperlipidemia, unspecifiedICD-10: E78.5 ICD-9: 272.408ActiveHypothyroidism, unspecifiedICD-10: E03.9 ICD-9: 244.912Active(Z12.11-V76.51) Encounter for screening for malignant neoplasm of colonICD-10: Z12.11 ICD-9: V76.5107Active(Z12.31-V76.12) Encounter for screening mammogram for malignant neoplasm of breastICD-10: Z12.31 ICD-9: V76.1207/ActiveAdult BMI 50.0-59.9 kg/sq mICD-10: Z68.43 ICD-9: V85.4308ActiveEncounter for screening for tobacco useICD-10: Z01.89 ICD-9: V72.8503ActiveSyncope and collapseICD-10: R55 ICD-9: 780.203ActiveFecal incontinenceICD-10: R15.9 ICD-9: 787.6003ActiveMixed incontinenceICD-10: N39.46 ICD-9: 788.33005/24/2019ActiveAsthmaICD-10: J45.909 ICD-9: 493.9011ActivePatient Not SeenICD-10: UXZ.01 ICD-9: XZ0.107ActiveDyspnea, unspecifiedICD-10: R06.00 ICD-9: 786.0905ActivePost-traumatic stress disorder, unspecifiedICD-10: F43.10 ICD-9: 309.8112ActiveAbnormal electrocardiogram [ECG] [EKG]ICD-10: R94.31 ICD-9: 794.31005/30/2018ActiveEdema, unspecifiedICD-10: R60.9 ICD-9: 782.310ActiveLong term (current) use of non-steroidal anti- inflammatories (NSAID)ICD-10: Z79.1 ICD-9: V58.6409Active Medications Medication Codes Instructions Start Date Stop Date Status Fill Instructions atorvastatin 40 mg tablet RxNorm: 478706 1 Tablet(s) Oral every day 12/06/192020 Inactive omeprazole 20 mg capsule,delayed release RxNorm: 863555 1 Capsule(s) Oral every evening 11/24/192020 Inactive famotidine 10 mg tablet RxNorm: 023797 1 Tablet(s) Oral every morning 11/24/192020 Inactive Alcohol Prep Pads RxNorm: 209187 USE EACH MORNING 10/14/19 21 2020 Inactive omeprazole 20 mg capsule,delayed release RxNorm: 108039 1 Capsule(s) Oral two times a day 10/13/19 21 2021 Inactive omeprazole 20 mg capsule,delayed release RxNorm: 302560 TAKE 1 CAPSULE BY MOUTH EVERY DAY 10/08/192021 Inactive Macrobid 100 mg capsule RxNorm: 792920 1 Capsule(s) Oral every 12 hours with food 10/01/202020 Inactive omeprazole 20 mg capsule,delayed release RxNorm: 849440 1 Capsule(s) Oral two times a day 09/24/20 20 2021 Inactive metformin 1,000 mg tablet RxNorm: 582447 1 Tablet(s) Oral two times a day 08/19/20 20 2020 Inactive start on September 11, 2020 metformin 500 mg tablet RxNorm: 931373 1 Tablet(s) Oral two times a day take with 500mg to equal 1000mg 08/19/20 20 2019 Inactive gabapentin 300 mg capsule RxNorm: 208687 TAKE 1 CAPSULE BY MOUTH THREE TIMES DAILY 07/11/20 20 2020 Inactive cetirizine 10 mg tablet RxNorm: 9957296 TAKE (1) TABLET BY MOUTH DAILY 07/11/20 20 2020 Inactive metformin 500 mg tablet RxNorm: 295065 1 Tablet(s) Oral two times a day 07/08/20 20 2019 Inactive loperamide 2 mg tablet RxNorm: 012921 1 Tablet(s) Oral as needed take one tablet after each loose stool, maximum of 8 tablets in 24 hours 06/24/20 20 2021 Inactive Sudafed 12 Hour 120 mg tablet,extended release RxNorm: 6353040 TAKE 1 TABLET BY MOUTH EVERY 12 HOURS NEEDED 06/11/20 20 2019 Inactive hydrochlorothiazide 25 mg tablet RxNorm: 671260 TAKE (1) TABLET BY MOUTH EVERY DAY 06/11/20 20 2019 Inactive omeprazole 20 mg capsule,delayed release RxNorm: 243039 TAKE 1 CAPSULE BY MOUTH EVERY DAY 05/14/20 2020 Inactive metformin 500 mg tablet RxNorm: 593083 1 Tablet(s) Oral every day 05/12/20 20 2019 Inactive True Metrix Glucose Test Strip RxNorm: 1 Test Strips Miscellaneous two times a day as needed 04/17/20 No Stop Date Active metformin 500 mg tablet RxNorm: 055260 1 Tablet(s) Oral every day 04/17/20 20 2019 Inactive diclofenac sodium 75 mg tablet,delayed release RxNorm: 313879 1 Tablet(s) PO BID 04/14/20 20 2021 Inactive This refill negates all other refills of this medication Sudafed 12 Hour 120 mg tablet,extended release RxNorm: 0549842 TAKE 1 TABLET BY MOUTH EVERY 12 HOURS NEEDED 03/14/20 20 2019 Inactive True Metrix Glucose Test Strip RxNorm: 1 Test Strips Miscellaneous every morning 03/13/20 20 2019 Inactive 100/container True Metrix Glucose Test Strip RxNorm: 1 Test Strips Miscellaneous QAM 02/22/20 20 2019 Inactive 100/container loperamide 2 mg tablet RxNorm: 691265 1 Tablet(s) Oral as needed take one tablet after each loose stool, maximum of 8 tablets in 24 hours 02/22/20 20 2019 Inactive levothyroxine 50 mcg tablet RxNorm: 918280 1 Tablet(s) PO daily 01/17/20 20 2020 Inactive cetirizine 10 mg tablet RxNorm: 0341517 1 Tablet(s) PO daily 01/17/20 20 2019 Inactive loperamide 2 mg tablet RxNorm: 051404 1 Tablet(s) Oral as needed take one tablet after each loose stool, maximum of 8 tablets in 24 hours 01/17/20 20 2019 Inactive quetiapine 100 mg tablet RxNorm: 071945 1 Tablet(s) Oral every night at bedtime 01/17/20 20 2019 Inactive gabapentin 300 mg capsule RxNorm: 253091 1 Capsule(s) PO TID 01/17/20 20 2019 Inactive lisinopril 2.5 mg tablet RxNorm: 452429 1 Tablet(s) PO daily 01/15/20 20 2020 Inactive Singulair 10 mg tablet RxNorm: 541775 1 Tablet(s) PO daily 01/15/20 20 2020 Inactive levothyroxine 50 mcg tablet RxNorm: 557531 1 Tablet(s) PO daily 01/15/20 20 2019 Inactive gabapentin 300 mg capsule RxNorm: 928859 1 Capsule(s) PO TID 01/15/20 20 2019 Inactive cetirizine 10 mg tablet RxNorm: 3595087 1 Tablet(s) PO daily 01/15/20 20 2019 Inactive gentamicin 0.3 % eye drops RxNorm: 559947 1 Drop(s) ophthalmic (eye) four times a day 12/29/19 20 2019 Inactive gentamicin 0.3 % eye drops RxNorm: 120501 1 Drop(s) ophthalmic (eye) four times a day 12/29/19 20 2019 Inactive gentamicin 0.3 % eye drops RxNorm: 134101 1 Drop(s) ophthalmic (eye) four times a day 12/29/19 20 2019 Inactive hydrochlorothiazide 25 mg tablet RxNorm: 614096 1 Tablet(s) Oral every day 12/21/19 20 2019 Inactive Sudafed 12 Hour 120 mg tablet,extended release RxNorm: 1398197 TAKE (1) TABLET BY MOUTH EVERY 12 HOURS NEEDED 12/21/19 20 2019 Inactive loperamide 2 mg tablet RxNorm: 276149 1 Tablet(s) Oral as needed take one tablet after each loose stool, maximum of 8 tablets in 24 hours 12/11/19 20 2019 Inactive loperamide 2 mg tablet RxNorm: 953013 1 Tablet(s) Oral as needed take one tablet after each loose stool, maximum of 8 tablets in 24 hours 12/11/19 20 2019 Inactive atorvastatin 40 mg tablet RxNorm: 369297 1 Tablet(s) Oral every day 11/29/19 20 2020 Inactive quetiapine 100 mg tablet RxNorm: 585682 1 Tablet(s) Oral every night at bedtime 11/28/19 20 2019 Inactive sertraline 100 mg tablet RxNorm: 329004 1 Tablet(s) Oral 11/28/19 20 2019 Inactive omeprazole 20 mg capsule,delayed release RxNorm: 596750 1 Capsule(s) Oral every day 11/20/19 20 2019 Inactive amoxicillin 250 mg capsule RxNorm: 454450 1 Capsule(s) Oral three times a day 11/07/19 20 2019 Inactive multivitamin with iron-mineral tablet RxNorm: 1 Tablet(s) Oral every day 10/29/19 20 2021 Inactive cetirizine 10 mg tablet RxNorm: 6623622 1 Tablet(s) PO daily 10/20/19 20 2019 Inactive This refill negates all other refills of this medication. Please do not auto refill Singulair 10 mg tablet RxNorm: 245083 1 Tablet(s) PO daily 10/20/19 20 2019 Inactive This refill negates all other refills of this medication gabapentin 300 mg capsule RxNorm: 910579 1 Capsule(s) PO TID 10/20/19 20 2019 Inactive lisinopril 2.5 mg tablet RxNorm: 192550 1 Tablet(s) PO daily 10/20/192019 Inactive levothyroxine 50 mcg tablet RxNorm: 774358 1 Tablet(s) PO daily 10/20/192019 Inactive This refill negates all other refills of this medication fenugreek seed extract 500 mg capsule RxNorm: 1 Capsule(s) Oral three times a day 10/17/19 20 2021 Inactive hydrochlorothiazide 25 mg tablet RxNorm: 564608 1 Tablet(s) Oral every day 10/17/19 20 2019 Inactive Alcohol Prep Pads RxNorm: 302527 1 Patch TOP QAM 10/16/192020 Inactive loperamide 2 mg tablet RxNorm: 179162 1 Tablet(s) Oral as needed take one [...] 2019 Inactive hydrochlorothiazide 25 mg tablet RxNorm: 443650 1 Tablet(s) Oral every day 09/19/20 19 2019 Inactive Sudafed 12 Hour 120 mg tablet,extended release RxNorm: 6060130 1 Tablet(s) Oral every 12 hours as needed 09/11/20 19 2018 Inactive omeprazole 20 mg capsule,delayed release RxNorm: 010900 1 Capsule(s) Oral every day 09/07/20 19 2019 Inactive Sudafed 12 Hour 120 mg tablet,extended release RxNorm: 5127574 1 Tablet(s) Oral every 12 hours as needed 09/04/20 19 2018 Inactive pantoprazole 40 mg tablet,delayed release RxNorm: 342735 1 Tablet(s) Oral every day 08/24/20 19 2018 Inactive discontinue any other H2Blkr. and PPI albuterol sulfate 2.5 mg/3 mL (0.083 %) solution for nebulization RxNorm: 331888 1 Vial Inhalation every four hours as needed as needed for dyspnea 08/17/20 19 2019 Inactive 60/box. This refill negates all other refills of this medication. Please do not fill early. Please do not auto refill. Symbicort 160 mcg-4.5 mcg/actuation HFA aerosol inhaler RxNorm: 1626092 2 Puff(s) INH BID 08/17/20 19 No Stop Date Active Alcohol Prep Pads RxNorm: 702672 1 Patch TOP QAM 08/17/20 19 2019 Inactive Ventolin HFA 90 mcg/actuation aerosol inhaler RxNorm: 906819 2 Puff(s) INH QID 08/09/20 19 2019 Inactive Please do not fill early. Please do not auto refill. This refill negates all other refills of this medication True Metrix Glucose Test Strip RxNorm: 1 Test Strips Miscellaneous QAM 08/09/20 19 2019 Inactive 100/container atorvastatin 40 mg tablet RxNorm: 696346 1 Tablet(s) Oral every day 07/04/20 19 2019 Inactive levmetamfetamine 50 mg nasal inhaler RxNorm: 1 Unit(s) NASAL Q3-4H Do not use more than every 3 hours or 8 times/24hours 06/26/20 19 2021 Inactive Please do not auto refill. This refill negates all other refills of this medication buspirone 7.5 mg tablet RxNorm: 336132 1 Tablet(s) PO BID 06/26/20 19 2020 Inactive This refill negates all other refills of this medication hydrochlorothiazide 12.5 mg tablet RxNorm: 868265 1 Tablet(s) PO QAM 06/26/20 19 2019 Inactive Ventolin HFA 90 mcg/actuation aerosol inhaler RxNorm: 880590 2 Puff(s) INH QID 06/26/20 19 2018 Inactive Please do not fill early. Please do not auto refill. This refill negates all other refills of this medication Singulair 10 mg tablet RxNorm: 591556 1 Tablet(s) PO daily 06/26/20 19 2019 Inactive This refill negates all other refills of this medication cetirizine 10 mg tablet RxNorm: 2837477 1 Tablet(s) PO daily 06/26/20 19 2019 Inactive This refill negates all other refills of this medication. Please do not auto refill levothyroxine 50 mcg tablet RxNorm: 747527 1 Tablet(s) PO daily 06/26/20 19 2019 Inactive This refill negates all other refills of this medication diclofenac sodium 75 mg tablet,delayed release RxNorm: 573379 1 Tablet(s) PO BID 06/26/20 19 2019 Inactive This refill negates all other refills of this medication ranitidine 150 mg tablet RxNorm: 731343 1 Tablet(s) PO BID 06/26/20 19 2018 Inactive This refill negates all other refills of this medication Calcium 600-D3 Plus (mag-zinc) 600 mg calcium-800 unit-50 mg tablet RxNorm: 1 Tablet(s) PO daily take an additonal tablet for itching. 06/26/20 19 2018 Inactive This refill negates all other refills of this medication albuterol sulfate 2.5 mg/3 mL (0.083 %) solution for nebulization RxNorm: 713838 1 Vial INH QID 06/26/20 19 2018 Inactive 60/box. This refill negates all other refills of this medication. Please do not fill early. Please do not auto refill. lisinopril 2.5 mg tablet RxNorm: 345303 1 Tablet(s) PO daily 06/21/20 19 2019 Inactive gabapentin 300 mg capsule RxNorm: 277390 1 Capsule(s) PO TID 06/21/20 19 2019 Inactive atorvastatin 20 mg tablet RxNorm: 435393 1 Tablet(s) PO QHS 06/07/20 19 2018 Inactive This refill negates all other refills of this medication TRUEplus Lancets 30 gauge RxNorm: 1 Lancets Miscellaneous QAM 05/29/20 19 2018 Inactive 100/box gabapentin 300 mg capsule RxNorm: 979374 1 Capsule(s) PO TID 05/03/20 19 2018 Inactive Flintstones Complete (iron) 18 mg iron chewable tablet RxNorm: 1 Tablet(s) PO daily 04/04/20 19 2021 Inactive This refill negates all other refills of this medication gabapentin 300 mg capsule RxNorm: 595782 1 Capsule(s) PO TID as needed 02/01/20 19 2018 Inactive True Metrix Glucose Test Strip RxNorm: 1 Test Strips Miscellaneous QAM 02/01/20 19 2018 Inactive 100/container Alcohol Prep Pads RxNorm: 267344 1 Patch TOP QAM 02/01/20 19 2018 Inactive TRUEplus Lancets 30 gauge RxNorm: 1 Lancets Miscellaneous QAM 02/01/20 19 2018 Inactive 100/box lisinopril 2.5 mg tablet RxNorm: 217137 1 Tablet(s) PO daily 12/28/19 19 2018 Inactive ranitidine 150 mg tablet RxNorm: 595495 1 Tablet(s) PO BID 10/21/192018 Inactive This refill negates all other refills of this medication albuterol sulfate 2.5 mg/3 mL (0.083 %) solution for nebulization RxNorm: 257296 1 Vial INH QID 10/21/192018 Inactive 60/box. [...] this medication gabapentin 300 mg capsule RxNorm: 868317 1 Capsule(s) PO TID as needed 10/21/19 19 2018 Inactive atorvastatin 20 mg tablet RxNorm: 576014 1 Tablet(s) PO QHS 10/21/19 19 2018 Inactive This refill negates all other refills of this medication trazodone 50 mg tablet RxNorm: 782925 1 Tablet(s) PO QHS 10/21/192018 Inactive This refill negates all other refills of this medication Ventolin HFA 90 mcg/actuation aerosol inhaler RxNorm: 419613 2 Puff(s) INH QID 10/21/192018 Inactive Please do not fill early. Please do not auto refill. This refill negates all other refills of this medication Calcium 600-D3 Plus 600 mg calcium-800 unit-50 mg tablet RxNorm: 1 Tablet(s) PO daily take an additonal tablet for itching. 10/21/192018 Inactive This refill negates all other refills of this medication Singulair 10 mg tablet RxNorm: 205800 1 Tablet(s) PO daily 10/21/19 19 2018 Inactive This refill negates all other refills of this medication buspirone 7.5 mg tablet RxNorm: 815137 1 Tablet(s) PO BID 10/21/192018 Inactive This refill negates all other refills of this medication diclofenac sodium 75 mg tablet,delayed release RxNorm: 940986 1 Tablet(s) PO BID 10/21/19 19 2018 Inactive This refill negates all other refills of this medication hydrochlorothiazide 12.5 mg tablet RxNorm: 391644 1 Tablet(s) PO QAM 10/21/192018 Inactive metoprolol succinate ER 50 mg tablet,extended release 24 hr RxNorm: 881709 1 Tablet(s) PO daily 10/21/19 19 2018 Inactive This refill negates all other refills of this medication levothyroxine 50 mcg tablet RxNorm: 795156 1 Tablet(s) PO daily 10/21/192018 Inactive This refill negates all other refills of this medication cetirizine 10 mg tablet RxNorm: 0004646 1 Tablet(s) PO daily 10/21/192018 Inactive This refill negates all other refills of this medication. Please do not auto refill Flintstones Complete (iron) 18 mg iron chewable tablet RxNorm: 1 Tablet(s) PO daily 10/21/192018 Inactive This refill negates all other refills of this medication buspirone 7.5 mg tablet RxNorm: 457018 1 Tablet(s) PO BID 10/12/192018 Inactive cetirizine 10 mg tablet RxNorm: 2506011 1 Tablet(s) PO daily 09/28/202018 Inactive Guaiasorb DM 10 mg-100 mg/5 mL oral liquid RxNorm: 678737 10 Milliliter(s) PO As needed every 4 hr 09/24/20 18 2018 Inactive Vicks Vaporub 4.7 %-1.2 %-2.6 % topical ointment RxNorm: 2820083 1 Application TOP TID 09/24/20 18 2018 Inactive levmetamfetamine 50 mg nasal inhaler RxNorm: 1 Unit(s) NASAL Q3-4H 09/24/20 18 2017 Inactive sertraline 50 mg tablet RxNorm: 022431 1 Tablet(s) PO daily 09/09/20 18 2018 Inactive Please note dose trazodone 50 mg tablet RxNorm: 371386 1 Tablet(s) PO QHS 09/06/20 18 2018 Inactive sertraline 50 mg tablet RxNorm: 066127 1 Tablet(s) PO daily 09/06/20 18 2017 Inactive amoxicillin 500 mg tablet RxNorm: 480858 1 Tablet(s) PO Q12H 08/31/20 18 2017 Inactive albuterol sulfate 2.5 mg/3 mL (0.083 %) solution for nebulization RxNorm: 279546 1 Vial INH QID 08/10/20 18 2018 Inactive 60/box. Please do not fill early. Please do not auto refill. Prozac 10 mg capsule RxNorm: 898036 1 Capsule(s) PO daily 08/09/20 18 2017 Inactive buspirone 7.5 mg tablet RxNorm: 276499 1 Tablet(s) PO BID 08/09/20 18 2018 Inactive gabapentin 300 mg capsule RxNorm: 137013 1 Capsule(s) PO TID as needed 08/01/20 18 2018 Inactive hydrochlorothiazide 12.5 mg tablet RxNorm: 109646 1 Tablet(s) PO QAM 08/01/20 18 2018 Inactive ranitidine 150 mg tablet RxNorm: 657348 1 Tablet(s) PO BID 08/01/20 18 2018 Inactive Macrobid 100 mg capsule RxNorm: 553996 1 Capsule(s) PO Q12H 06/21/20 18 2017 Inactive Singulair 10 mg tablet RxNorm: 325612 1 Tablet(s) PO daily 06/14/20 18 2018 Inactive Ventolin HFA 90 mcg/actuation aerosol inhaler RxNorm: 8781366 2 Puff(s) INH QID 06/14/20 18 2018 Inactive Singulair 10 mg tablet RxNorm: 728585 1 Tablet(s) PO daily 06/14/20 18 2017 Inactive buspirone 7.5 mg tablet RxNorm: 878319 1 Tablet(s) PO BID 06/14/20 18 2017 Inactive Prozac 10 mg capsule RxNorm: 549761 1 Capsule(s) PO daily 06/14/20 18 2017 Inactive Neilmed Pediatric Sinus Rinse Refill packet RxNorm: 1 Unit Dose NASAL PRN 05/31/20 18 2021 Inactive diclofenac sodium 75 mg tablet,delayed release RxNorm: 724507 1 Tablet(s) PO BID 05/31/20 18 2017 Inactive lisinopril 2.5 mg tablet RxNorm: 744435 1 Tablet(s) PO daily 05/31/20 18 2017 Inactive metoprolol succinate ER 50 mg tablet,extended release 24 hr RxNorm: 676350 1 Tablet(s) PO daily 05/31/20 18 2017 Inactive levothyroxine 50 mcg tablet RxNorm: 457541 1 Tablet(s) PO daily 05/31/20 18 2017 Inactive TRUEplus Lancets 30 gauge RxNorm: 1 Lancets Miscellaneous QAM 05/31/20 18 2017 Inactive 100/box Ventolin HFA 90 mcg/actuation aerosol inhaler RxNorm: 050335 2 Puff(s) INH QID 05/31/20 18 2017 Inactive Aleve 220 mg capsule RxNorm: 8078926 1 Capsule(s) PO BID 05/31/20 18 2018 Inactive ranitidine 150 mg tablet RxNorm: 078115 1 Tablet(s) PO BID 05/31/20 18 2017 Inactive gabapentin 300 mg capsule RxNorm: 624616 1 Capsule(s) PO TID as needed 05/31/20 18 2017 Inactive atorvastatin 20 mg tablet RxNorm: 031018 1 Tablet(s) PO QHS 05/31/20 18 2017 Inactive True Metrix Glucose Test Strip RxNorm: 1 Test Strips Miscellaneous QAM 05/31/20 18 2017 Inactive 50/container Calcium 600-D3 Plus 600 mg calcium-800 unit-50 mg tablet RxNorm: 1 Tablet(s) PO daily take an additonal tablet for itching. 05/31/20 18 2017 Inactive hydrochlorothiazide 12.5 mg tablet RxNorm: 369634 1 Tablet(s) PO QAM 05/31/20 18 2017 Inactive Flintstones Complete (iron) 18 mg iron chewable tablet RxNorm: 1 Tablet(s) PO daily 05/31/20 18 2017 Inactive d-mannose oral powder RxNorm: PO 18 2021 Inactive True Metrix Glucose Meter RxNorm: miscellaneous 08/17/20 19 2018 Inactive sertraline 50 mg tablet RxNorm: 625208 1 Tablet(s) PO daily 11/28/19 20 2019 Inactive loperamide 2 mg tablet RxNorm: 630852 oral 09/29/20 19 2018 Inactive Symbicort 160 mcg-4.5 mcg/actuation HFA aerosol inhaler RxNorm: 8496724 2 Puff(s) INH BID 08/17/20 19 2018 Inactive Medication Administered No Medication Administered data Procedures Procedure Codes Date [place] Assessment CPT-4: DSWA 12/01 [place] Assessment Sensation/8/10CPT-4: CSYMSkkafoq56/17/2021Urinalysis, dip stickCPT-4: 20705 09/24/2020Patient Health QuestionnaireCPT-4: DPH08/19/2020ElectrocardiogramCPT- 4: 9779192Tobacco Assessment/ScreeningCPT-4: TCA01/01/2020[facility]: 925618266 CPT-4: DFRA01/01/2020Functional AssessmentCPT-4: DFA01/01/2020[place] Fany AssessmentCPT-4: DSWA11/28/2019Patient Health QuestionnaireCPT-4: DPHQ11/28/2019 [place] F[place] AssessmentCPT-4: DSWA10/17/2019HypertensionCPT-4: HTN10/17/[address]: 125544687 CPT-4: DFRA09/19/2019Functional AssessmentCPT-4: DFA111/20/2018Urinalysis, dip stickCPT-4: 8692016Tobacco Assessment/ScreeningCPT-4: TCA05/24/2019 Patient Health QuestionnaireCPT-4: DPHQ05/24/2019AHA/REBECCA Classification AssessmentCPT-4: DAHA04/25/2019Controlled Substance ReportCPT-4: CTRSU04/25/2019 Urinalysis, dip stickCPT-4: 154446003/28/2019Urinalysis, dip stickCPT-4: 99624 03/28/20197403E7D-DwbkovjadnnnevfIKG-9: 25762TsjfdppX8T-IcduwbpbtjttnjiGRX-4: 11578 StwdvlhD6R-MaaucnijrvbgunxXWK-5: 79967ZjxhgwlZ4L-LkhthiojmwnwvzuOCM-8: 03662 KutjjyvJ4F-CejzjejbgbeftxtWKO-4: 75275FanxgkqH3T-FjnmehaopucjhjuXEI-6: [address]: 257621569 CPT-4: D75Qeohprl Vital Signs Date Vital 12/17/2020 Blood Pressure 1: 134/82 Code: 8480-6 BMI: 53.1 Code: 38000-2 Heart Rate 1: 90 bpm Height: 4'11 Code: 8302-2 Respiratory Rate: 16 bpm SpO2: 98% Temperature: 36.4 (C) / 97.5 (F) Weight: 263 lbs Code: 14651-9 Reason For Visit Reason For Visit Effective Dates Notes Interim health update 12/17/2020 diabetes mellitus 12/17/2020 hypertension 12/17/2020 anorexia 12/17/2020 Encounters Encounter Performer Location Location Address Codes [facility] HOME VISIT EST PATIENT Diagnosis: Type 2 diabetes mellitus with peripheral neuropathy[ICD10: E11.42] Diagnosis: Hypertensive heart disease with heart failure[ICD10: I11.0] Diagnosis: Obstructive sleep apnea (adult) (pediatric)[ICD10: G47.33] Diagnosis: Anorexia[ICD10: R63.0]Anna Bourgeois [id number] [facility] [address] [place], [place] [address]WIW-6: [id number] Plan of Care Planned Activity Notes Codes Status Date Visit Plan: R63.0-783.0 Anorexia Ongoing lack of appetite for solid foods for several weeks, denies difficulties managing fluids-drank entire bottle of carbonated water during visit advised to continue to try small, more frequent food intake, discussed limiting carbonated beverages as this may make her feel full taking away appetite discussed benefits of [place] Instant Breakfast. note weight remain relatively stable [...] BID - received new monitor [employer] through [place]-participant of [place] [employer] - 10/29/2020 hgb A1C 5.6 10/17/2019 [place] Fany 10-instructed on good daily foot care [...] 12/22/2020, if tolerated will have implant surgery 4/5/202 1 K21.9-530.81 GERD (gastroesophageal reflux disease) trial of famotidine 10mg qam and omeprazole 20mg at bedtime discussed at last visit- encouraged getting Famotidine OTC if symptoms worsen advisedto limit late evening eating, avoid fried, greasy foods, and carbonated beverages G47.33-327.23 Obstructive sleep apnea (adult) (pediatric) J45.909-493.90 Asthma has had a few nights of not wearing her cpap-discussed wearing at all times continue inhalers nebulizer routine f/u Dr. Garcia, pulmonology F43.23-309.28 Adjustment disorder with mixed anxiety and depressed mood routine follow up [facility] 08/19/2020 PHQ 9 Scoere 1, admits to [...] sparkling flavored pal and occasional Heike Green Teaand honey Z12.4-V76.2 Encounter for screening for malignant neoplasm of cervix last pap January 2019 new appt for pap in June 2020-[employer] [employer] [facility]-reports pap negative-records requested Z01.89-V72.85 Encounter for screening for tobacco use Tobacco screen complete-patient denies ever smoking Z12.31-V76.12 (Z12.31-V76.12) Encounter for screening mammogram for malignant neoplasm of breast Z12.11-V76.51 (Z12.11- V76.51) Encounter for screening for malignant neoplasm of colon Preventative testing not indicated due to age *I reviewed the most recent CDC guidelines regarding Covid-19/Coronavirus with the patient/caregiver/designee 1Patient Education: Patient Medication FstldlpVmtbrivee11/17/2021 Patient Education: BqrdpdlwiuthJgnyxntzg55/17/2021Patient Education: Diabetes Egocwvrto40/17/2021ppointment: Chivo Bishop WPtel: [id number] [place] [address] USETV11/28/2020ppointment: Anna Culver WPtel: [address] [place] [address] USETV11/24/2020ppointment: Anna Culver WPtel: [address] [place] [address] [id number]: Anna Culver WPtel: [address] [place] [address] [id number]: Anna Culver WPtel: [address] [place] [address] USETV110/26/2019Appointment: Anna Culver WPtel: [address] [place] [address] USETV110/19/2019Appointment: Anna Culver WPtel: [address] [place] [address] [id number]: Anna Culver WPtel: [address] [place] [address] [id number]: Gianna Birmingham: [facility]5 [facility] 100 [id number] HAYRIH1107/02/2020Appointment: Anna Culver WPtel: [address] [place] [address] [id number]: Anna Culver WPtel: [id number] [place] [address] [id number]: Anna Culver WPtel: [id number] [place] [address] [id number]: Anna Culver WPtel: [id number] [place] [address] [id number]: Anna Culver WPtel: [id number] [place] [address] [id number]: Anna Culver WPtel: [address] [place] [address] [id number]: Anna Culver WPtel: [address] [place] [address] [id number]: Anna Culver WPtel: [address] [place] [address] [id number]: Anna Culver WPtel: [address] [place] [address] [id number]: Anna Culver WPtel: [address] [place] [address] [id number]/20/2018Appointment: Sudha Hernadez WPtel: [facility] [place] [id number]: Sudha Hernadez WPtel: [facility] [id number]: Charlene Oropeza WPtel: [facility] [place] [address] [id number]: Office, HrvpzwY38724/26/2019Appointment: Charlene Oropeza WPtel: [address] [facility] [id number]: Rasta Palafox WPtel: [address] [facility] [id number]: Hema Palafoxothy WPtel: [address] [facility] [id number]: Rasta Palafox WPtel: [address] [facility] [id number]: JimmysenthilRasta elias WPtel: [address] [facility] [id number]: Pending Gynecology Referral InformationReferral ProcessedReferral: Pending Pulmonology Referral InformationReferralProcessed Referral: Pending Psychiatry Referral InformationReferralInitiatedReferral: Pending Respiratory Services Referral InformationReferralInitiatedReferral: Pending Ophthalmology Referral InformationReferralInitiatedReferral: [facility] WPtel: [address] [place] [address] [id number] USWriter placed a call out to the patient to notify her that it has been recommended that she be seenby a urologist. Patient agreed to be seen, does not have a provider of choice and no transportationissues. [employer]st faxed referral and clinical notes to [facility] in [place], [place] near the patient's home. Patient to [...] seen and prefers a provider in the [place] or [place] area. [employer]st placed a call out to everyone listed in the area and the only location that was able to accept the patient's insurance was [facility] [address] [place] [address] and spoke with Maylin. Maylin asked that the patient's referral, face sheet and visit notes be faxed to . [employer]st faxed over requested documents. Patient appointment confirmation letter generated and mailed to her home address. Patient to call to schedule an appointment.ProcessedReferral: [facility] WPtel: [address] [place] [address] [place], [place] [id number] USPatient notified that it has been advised that she be seen by Neurology. Patient agreed to be seen and prefers to be seen by a provider in the [place], [place] area. Patient denies any concerns with transportation, and prefers to schedule her own appointment. [employer]st placed a call out to [facility] and spoke with Neeraj [...] full taking away appetite discussed benefits of [place] [employer] Breakfast. note weight remain relatively stable [...] demand - 10/29/2020 hgb A1C 5.6 10/17/2019 [place] Fany 04/11-instructed on good daily foot care [...] anxiety and depressed mood routine follow up [facility] 08/19/2020 PHQ 9 Scoere 1, admits to [...] new appt for pap in June 2020-[facility] [employer] [facility]-reports pap negative-recordsrequested Z01.89-V72.85 Encounter for screening [...]
--- OUTSIDE RECORDS SUMMARY | 2023-12-07 02:15 | XMS_ITS | CCD ---
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 Name Role Phone Palomo KING, Anna Primary Care Provider Unav ailable Unavailable Chronic Care Management Unavaila ble Summary Purpose DataExchange Insurance Providers Payer name Policy type / Coverage type Covered libertarian ID Effective Begin Date Effective End Date SUKI MAYO [id number] Unknown Unknown Family history Mother Diagnosis Age [...] 05/31/2018 Education level Unknown Some High School 10th05/31/20183104VtbatqyendIfhoqysScbkecollp45/29/2018Tobacco historySNOMED CT: 107798707Fwz never smoked or chewed gguvpyi8105/31/2018Alcohol historySNOMED CT: 454182912Pvher drinks [id number]/31/2018Has the patient ever used illegal drugs? UnknownHas never used illegal drugs05/31/2018DNR Order/ Advanced Directive UnknownFull Code05/31/2018 Allergies, Adverse Reactions, Alerts Substance Reaction Codes Entered Date Inactivated Date Status *No known food allergies Hfnmqpk9009/06/2018No Inactive DateActiveMethylprednisolonehivesRxNorm: 6902 09/06/2018No Inactive DateActive Problems [...] Fill Instructions lisinopril 2.5 mg tablet RxNorm: 075270 TAKE 1 TABLET BY MOUTH DAILY 01/06/202020 Inactive gabapentin 300 mg capsule RxNorm: 061080 TAKE 1 CAPSULE BY MOUTH THREE TIMES A DAY 01/06/20 21 2020 Inactive Singulair 10 mg tablet RxNorm: 163942 TAKE (1) TABLET BY MOUTH DAILY 01/06/202020 Inactive metformin 1,000 mg tablet RxNorm: 156104 1 Tablet(s) Oral two times a day 01/06/202020 Inactive atorvastatin 40 mg tablet RxNorm: 484804 1 Tablet(s) Oral every day 12/06/19 21 2020 Inactive omeprazole 20 mg capsule,delayed release RxNorm: 042025 1 Capsule(s) Oral every evening 11/24/19 21 2020 Inactive famotidine 10 mg tablet RxNorm: 519816 1 Tablet(s) Oral every morning 11/24/19 21 2020 Inactive Alcohol Prep Pads RxNorm: 493604 USE EACH MORNING 10/14/19 21 2020 Inactive omeprazole 20 mg capsule,delayed release RxNorm: 944757 1 Capsule(s) Oral two times a day 10/13/19 21 2021 Inactive omeprazole 20 mg capsule,delayed release RxNorm: 685641 TAKE 1 CAPSULE BY MOUTH EVERY DAY 10/08/192021 Inactive Macrobid 100 mg capsule RxNorm: 658124 1 Capsule(s) Oral every 12 hours with food 10/01/202020 Inactive omeprazole 20 mg capsule,delayed release RxNorm: 355704 1 Capsule(s) Oral two times a day 09/24/20 20 2021 Inactive metformin 1,000 mg tablet RxNorm: 621446 1 Tablet(s) Oral two times a day 08/19/20 20 2020 Inactive start on September 11, 2020 metformin 500 mg tablet RxNorm: 418662 1 Tablet(s) Oral two times a day take with 500mg to equal 1000mg 08/19/20 20 2019 Inactive cetirizine 10 mg tablet RxNorm: 6662993 TAKE (1) TABLET BY MOUTH DAILY 07/11/20 20 2020 Inactive gabapentin 300 mg capsule RxNorm: 842300 TAKE 1 CAPSULE BY MOUTH THREE TIMES DAILY 07/11/20 20 2020 Inactive metformin 500 mg tablet RxNorm: 338046 1 Tablet(s) Oral two times a day 07/08/20 20 2019 Inactive loperamide 2 mg tablet RxNorm: 085740 1 Tablet(s) Oral as needed take one tablet after each loose stool, maximum of 8 tablets in 24 hours 06/24/20 20 2021 Inactive Sudafed 12 Hour 120 mg tablet,extended release RxNorm: 4710534 TAKE 1 TABLET BY MOUTH EVERY 12 HOURS NEEDED 06/11/20 20 2019 Inactive hydrochlorothiazide 25 mg tablet RxNorm: 916311 TAKE (1) TABLET BY MOUTH EVERY DAY 06/11/20 20 2019 Inactive omeprazole 20 mg capsule,delayed release RxNorm: 717760 TAKE 1 CAPSULE BY MOUTH EVERY DAY 05/14/20 20 2020 Inactive metformin 500 mg tablet RxNorm: 846230 1 Tablet(s) Oral every day 05/12/20 20 2019 Inactive True Metrix Glucose Test Strip RxNorm: 1 Test Strips Miscellaneous two times a day as needed 04/17/20 No Stop Date Active metformin 500 mg tablet RxNorm: 658929 1 Tablet(s) Oral every day 04/17/20 20 2019 Inactive diclofenac sodium 75 mg tablet,delayed release RxNorm: 878598 1 Tablet(s) PO BID 04/14/20 20 2021 Inactive This refill negates all other refills of this medication Sudafed 12 Hour 120 mg tablet,extended release RxNorm: 3026766 TAKE 1 TABLET BY MOUTH EVERY 12 HOURS NEEDED 03/14/20 20 2019 Inactive True Metrix Glucose Test Strip RxNorm: 1 Test Strips Miscellaneous every morning 03/13/20 20 2019 Inactive 100/container True Metrix Glucose Test Strip RxNorm: 1 Test Strips Miscellaneous QA 02/22/20 20 2019 Inactive 100/container loperamide 2 mg tablet RxNorm: 062702 1 Tablet(s) Oral as needed take one tablet after each loose stool, maximum of 8 tablets in 24 hours 02/22/20 20 2019 Inactive levothyroxine 50 mcg tablet RxNorm: 678168 1 Tablet(s) PO daily 01/17/20 20 2020 Inactive cetirizine 10 mg tablet RxNorm: 9850689 1 Tablet(s) PO daily 01/17/20 20 2019 Inactive loperamide 2 mg tablet RxNorm: 542702 1 Tablet(s) Oral as needed take one tablet after each loose stool, maximum of 8 tablets in 24 hours 01/17/2019 02/21/ 2020 Inactive quetiapine 100 mg tablet RxNorm: 461193 1 Tablet(s) Oral every night at bedtime 01/17/20 20 2019 Inactive gabapentin 300 mg capsule RxNorm: 093380 1 Capsule(s) PO TID 01/17/20 20 2019 Inactive levothyroxine 50 mcg tablet RxNorm: 023263 1 Tablet(s) PO daily 01/15/20 20 2019 Inactive lisinopril 2.5 mg tablet RxNorm: 311318 1 Tablet(s) PO daily 01/15/20 20 2020 Inactive gabapentin 300 mg capsule RxNorm: 529817 1 Capsule(s) PO TID 01/15/20 20 2019 Inactive cetirizine 10 mg tablet RxNorm: 9235753 1 Tablet(s) PO daily 01/15/20 20 2019 Inactive Singulair 10 mg tablet RxNorm: 538716 1 Tablet(s) PO daily 01/15/20 20 2020 Inactive gentamicin 0.3 % eye drops RxNorm: 500623 1 Drop(s) ophthalmic (eye) four times a day 12/29/19 20 2019 Inactive gentamicin 0.3 % eye drops RxNorm: 596066 1 Drop(s) ophthalmic (eye) four times a day 12/29/19 20 2019 Inactive gentamicin 0.3 % eye drops RxNorm: 587096 1 Drop(s) ophthalmic (eye) four times a day 12/29/19 20 2019 Inactive hydrochlorothiazide 25 mg tablet RxNorm: 540590 1 Tablet(s) Oral every day 12/21/19 20 2019 Inactive Sudafed 12 Hour 120 mg tablet,extended release RxNorm: 0741213 TAKE (1) TABLET BY MOUTH EVERY 12 HOURS NEEDED 12/21/19 20 2019 Inactive loperamide 2 mg tablet RxNorm: 887787 1 Tablet(s) Oral as needed take one tablet after each loose stool, maximum of 8 tablets in 24 hours 12/11/19 20 2019 Inactive loperamide 2 mg tablet RxNorm: 812442 1 Tablet(s) Oral as needed take one tablet after each loose stool, maximum of 8 tablets in 24 hours 12/11/19 20 2019 Inactive atorvastatin 40 mg tablet RxNorm: 740057 1 Tablet(s) Oral every day 11/29/19 20 2020 Inactive quetiapine 100 mg tablet RxNorm: 318512 1 Tablet(s) Oral every night at bedtime 11/28/19 20 2019 Inactive sertraline 100 mg tablet RxNorm: 172815 1 Tablet(s) Oral 11/28/19 20 2019 Inactive omeprazole 20 mg capsule,delayed release RxNorm: 208552 1 Capsule(s) Oral every day 11/20/19 20 2019 Inactive amoxicillin 250 mg capsule RxNorm: 106249 1 Capsule(s) Oral three times a day 11/07/19 20 2019 Inactive multivitamin with iron-mineral tablet RxNorm: 1 Tablet(s) Oral every day 10/29/192021 Inactive cetirizine 10 mg tablet RxNorm: 1021823 1 Tablet(s) PO daily 10/20/19 20 2019 Inactive This refill negates all other refills of this medication. Please do not auto refill Singulair 10 mg tablet RxNorm: 037752 1 Tablet(s) PO daily 10/20/19 20 2019 Inactive This refill negates all other refills of this medication gabapentin 300 mg capsule RxNorm: 103206 1 Capsule(s) PO TID 10/20/19 20 2019 Inactive lisinopril 2.5 mg tablet RxNorm: 702602 1 Tablet(s) PO daily 10/20/19 20 2019 Inactive levothyroxine 50 mcg tablet RxNorm: 027175 1 Tablet(s) PO daily 10/20/19 20 2019 Inactive This refill negates all other refills of this medication fenugreek seed extract 500 mg capsule RxNorm: 1 Capsule(s) Oral three times a day 10/17/19 20 2021 Inactive hydrochlorothiazide 25 mg tablet RxNorm: 448062 1 Tablet(s) Oral every day 10/17/19 20 2019 Inactive Alcohol Prep Pads RxNorm: 813363 1 Patch TOP QAM 10/16/19 20 2020 Inactive loperamide 2 mg tablet RxNorm: 861698 1 Tablet(s) Oral as needed take one [...] 2019 Inactive hydrochlorothiazide 25 mg tablet RxNorm: 970732 1 Tablet(s) Oral every day 09/19/20 19 2019 Inactive Sudafed 12 Hour 120 mg tablet,extended release RxNorm: 9260859 1 Tablet(s) Oral every 12 hours as needed 09/11/20 19 2018 Inactive omeprazole 20 mg capsule,delayed release RxNorm: 799422 1 Capsule(s) Oral every day 09/07/20 19 2019 Inactive Sudafed 12 Hour 120 mg tablet,extended release RxNorm: 5567614 1 Tablet(s) Oral every 12 hours as needed 09/04/20 19 2018 Inactive pantoprazole 40 mg tablet,delayed release RxNorm: 128288 1 Tablet(s) Oral every day 08/24/20 19 2018 Inactive discontinue any other H2Blkr. and PPI albuterol sulfate 2.5 mg/3 mL (0.083 %) solution for nebulization RxNorm: 562766 1 Vial Inhalation every four hours as needed as needed for dyspnea 08/17/20 19 2019 Inactive 60/box. This refill negates all other refills of this medication. Please do not fill early. Please do not auto refill. Symbicort 160 mcg-4.5 mcg/actuation HFA aerosol inhaler RxNorm: 4155811 2 Puff(s) INH BID 08/17/20 19 No Stop Date Active Alcohol Prep Pads RxNorm: 493482 1 Patch TOP QAM 08/17/20 19 2019 Inactive Ventolin HFA 90 mcg/actuation aerosol inhaler RxNorm: 104962 2 Puff(s) INH QID 08/09/20 19 2019 Inactive Please do not fill early. Please do not auto refill. This refill negates all other refills of this medication True Metrix Glucose Test Strip RxNorm: 1 Test Strips Miscellaneous QAM 08/09/20 19 2019 Inactive 100/container atorvastatin 40 mg tablet RxNorm: 779521 1 Tablet(s) Oral every day 07/04/20 19 2019 Inactive levmetamfetamine 50 mg nasal inhaler RxNorm: 1 Unit(s) NASAL Q3-4H Do not use more than every 3 hours or 8 times/24hours 06/26/20 19 2021 Inactive Please do not auto refill. This refill negates all other refills of this medication buspirone 7.5 mg tablet RxNorm: 511908 1 Tablet(s) PO BID 06/26/20 19 2020 Inactive This refill negates all other refills of this medication hydrochlorothiazide 12.5 mg tablet RxNorm: 922322 1 Tablet(s) PO QAM 06/26/20 19 2019 Inactive Ventolin HFA 90 mcg/actuation aerosol inhaler RxNorm: 173920 2 Puff(s) INH QID 06/26/20 19 2018 Inactive Please do not fill early. Please do not auto refill. This refill negates all other refills of this medication Singulair 10 mg tablet RxNorm: 751640 1 Tablet(s) PO daily 06/26/20 19 2019 Inactive This refill negates all other refills of this medication cetirizine 10 mg tablet RxNorm: 3159806 1 Tablet(s) PO daily 06/26/20 19 2019 Inactive This refill negates all other refills of this medication. Please do not auto refill levothyroxine 50 mcg tablet RxNorm: 811973 1 Tablet(s) PO daily 06/26/20 19 2019 Inactive This refill negates all other refills of this medication diclofenac sodium 75 mg tablet,delayed release RxNorm: 704438 1 Tablet(s) PO BID 06/26/20 19 2019 Inactive This refill negates all other refills of this medication ranitidine 150 mg tablet RxNorm: 638444 1 Tablet(s) PO BID 06/26/20 19 2018 Inactive This refill negates all other refills of this medication Calcium 600-D3 Plus (mag-zinc) 600 mg calcium-800 unit-50 mg tablet RxNorm: 1 Tablet(s) PO daily take an additonal tablet for itching. 06/26/20 19 2018 Inactive This refill negates all other refills of this medication albuterol sulfate 2.5 mg/3 mL (0.083 %) solution for nebulization RxNorm: 889654 1 Vial INH QID 06/26/20 19 2018 Inactive 60/box. This refill negates all other refills of this medication. Please do not fill early. Please do not auto refill. lisinopril 2.5 mg tablet RxNorm: 449451 1 Tablet(s) PO daily 06/21/20 19 2019 Inactive gabapentin 300 mg capsule RxNorm: 905859 1 Capsule(s) PO TID 06/21/20 19 2019 Inactive atorvastatin 20 mg tablet RxNorm: 576343 1 Tablet(s) PO QHS 06/07/20 19 2018 Inactive This refill negates all other refills of this medication TRUEplus Lancets 30 gauge RxNorm: 1 Lancets Miscellaneous QAM 05/29/20 19 2018 Inactive 100/box gabapentin 300 mg capsule RxNorm: 165932 1 Capsule(s) PO TID 05/03/20 19 2018 Inactive Flintstones Complete (iron) 18 mg iron chewable tablet RxNorm: 1 Tablet(s) PO daily 04/04/20 19 2021 Inactive This refill negates all other refills of this medication gabapentin 300 mg capsule RxNorm: 820791 1 Capsule(s) PO TID as needed 02/01/20 19 2018 Inactive True Metrix Glucose Test Strip RxNorm: 1 Test Strips Miscellaneous QAM 02/01/20 19 2018 Inactive 100/container Alcohol Prep Pads RxNorm: 446056 1 Patch TOP QAM 02/01/20 19 2018 Inactive TRUEplus Lancets 30 gauge RxNorm: 1 Lancets Miscellaneous QAM 02/01/20 19 2018 Inactive 100/box lisinopril 2.5 mg tablet RxNorm: 202213 1 Tablet(s) PO daily 12/28/19 19 2018 Inactive ranitidine 150 mg tablet RxNorm: 150377 1 Tablet(s) PO BID 10/21/192018 Inactive This refill negates all other refills of this medication albuterol sulfate 2.5 mg/3 mL (0.083 %) solution for nebulization RxNorm: 576941 1 Vial INH QID 10/21/19 19 2018 [...] this medication gabapentin 300 mg capsule RxNorm: 465952 1 Capsule(s) PO TID as needed 10/21/192018 Inactive atorvastatin 20 mg tablet RxNorm: 271850 1 Tablet(s) PO QHS 10/21/19 19 2018 Inactive This refill negates all other refills of this medication trazodone 50 mg tablet RxNorm: 933412 1 Tablet(s) PO QHS 10/21/19 19 2018 Inactive This refill negates all other refills of this medication Ventolin HFA 90 mcg/actuation aerosol inhaler RxNorm: 855784 2 Puff(s) INH QID 10/21/19 2018 Inactive [...] this medication Singulair 10 mg tablet RxNorm: 357744 1 Tablet(s) PO daily 10/21/192018 Inactive This refill negates all other refills of this medication buspirone 7.5 mg tablet RxNorm: 728052 1 Tablet(s) PO BID 10/21/192018 Inactive This refill negates all other refills of this medication diclofenac sodium 75 mg tablet,delayed release RxNorm: 243796 1 Tablet(s) PO BID 10/21/192018 Inactive This refill negates all other refills of this medication hydrochlorothiazide 12.5 mg tablet RxNorm: 507794 1 Tablet(s) PO QAM 10/21/192018 Inactive metoprolol succinate ER 50 mg tablet,extended release 24 hr RxNorm: 875675 1 Tablet(s) PO daily 10/21/192018 Inactive This refill negates all other refills of this medication levothyroxine 50 mcg tablet RxNorm: 671149 1 Tablet(s) PO daily 10/21/192018 Inactive This refill negates all other refills of this medication cetirizine 10 mg tablet RxNorm: 7803824 1 Tablet(s) PO daily 10/21/192018 Inactive This refill negates all other refills of this medication. Please do not auto refill Flintstones Complete (iron) 18 mg iron chewable tablet RxNorm: 1 Tablet(s) PO daily 10/21/192018 Inactive This refill negates all other refills of this medication buspirone 7.5 mg tablet RxNorm: 231004 1 Tablet(s) PO BID 10/12/192018 Inactive cetirizine 10 mg tablet RxNorm: 0807944 1 Tablet(s) PO daily 09/28/20 18 2018 Inactive Guaiasorb DM 10 mg-100 mg/5 mL oral liquid RxNorm: 309519 10 Milliliter(s) PO As needed every 4 hr 09/24/20 18 2018 Inactive Vicks Vaporub 4.7 %-1.2 %-2.6 % topical ointment RxNorm: 4459941 1 Application TOP TID 09/24/20 18 2018 Inactive levmetamfetamine 50 mg nasal inhaler RxNorm: 1 Unit(s) NASAL Q3-4H 09/24/20 18 2017 Inactive sertraline 50 mg tablet RxNorm: 129110 1 Tablet(s) PO daily 09/09/20 18 2018 Inactive Please note dose trazodone 50 mg tablet RxNorm: 880328 1 Tablet(s) PO QHS 09/06/20 18 2018 Inactive sertraline 50 mg tablet RxNorm: 955151 1 Tablet(s) PO daily 09/06/20 18 2017 Inactive amoxicillin 500 mg tablet RxNorm: 524690 1 Tablet(s) PO Q12H 08/31/20 18 2017 Inactive albuterol sulfate 2.5 mg/3 mL (0.083 %) solution for nebulization RxNorm: 499348 1 Vial INH QID 08/10/202018 Inactive 60/box. Please do not fill early. Please do not auto refill. Prozac 10 mg capsule RxNorm: 335516 1 Capsule(s) PO daily 08/09/20 18 2017 Inactive buspirone 7.5 mg tablet RxNorm: 130280 1 Tablet(s) PO BID 08/09/20 18 2018 Inactive gabapentin 300 mg capsule RxNorm: 531187 1 Capsule(s) PO TID as needed 08/01/20 18 2018 Inactive hydrochlorothiazide 12.5 mg tablet RxNorm: 125615 1 Tablet(s) PO QAM 08/01/20 18 2018 Inactive ranitidine 150 mg tablet RxNorm: 571653 1 Tablet(s) PO BID 08/01/20 18 2018 Inactive Macrobid 100 mg capsule RxNorm: 215258 1 Capsule(s) PO Q12H 06/21/20 18 2017 Inactive Singulair 10 mg tablet RxNorm: 842268 1 Tablet(s) PO daily 06/14/20 18 2018 Inactive Ventolin HFA 90 mcg/actuation aerosol inhaler RxNorm: 9941279 2 Puff(s) INH QID 06/14/20 18 2018 Inactive Singulair 10 mg tablet RxNorm: 363608 1 Tablet(s) PO daily 06/14/20 18 2017 Inactive buspirone 7.5 mg tablet RxNorm: 290225 1 Tablet(s) PO BID 06/14/20 18 2017 Inactive Prozac 10 mg capsule RxNorm: 791633 1 Capsule(s) PO daily 06/14/20 18 2017 Inactive Neilmed Pediatric Sinus Rinse Refill packet RxNorm: 1 Unit Dose NASAL PRN 05/31/20 18 2021 Inactive diclofenac sodium 75 mg tablet,delayed release RxNorm: 407553 1 Tablet(s) PO BID 05/31/20 18 2017 Inactive lisinopril 2.5 mg tablet RxNorm: 710269 1 Tablet(s) PO daily 05/31/20 18 2017 Inactive metoprolol succinate ER 50 mg tablet,extended release 24 hr RxNorm: 880572 1 Tablet(s) PO daily 05/31/20 18 2017 Inactive levothyroxine 50 mcg tablet RxNorm: 436044 1 Tablet(s) PO daily 05/31/20 18 2017 Inactive TRUEplus Lancets 30 gauge RxNorm: 1 Lancets Miscellaneous QAM 05/31/20 18 2017 Inactive 100/box Ventolin HFA 90 mcg/actuation aerosol inhaler RxNorm: 172001 2 Puff(s) INH QID 05/31/20 18 2017 Inactive Aleve 220 mg capsule RxNorm: 0425855 1 Capsule(s) PO BID 05/31/20 18 2018 Inactive ranitidine 150 mg tablet RxNorm: 415527 1 Tablet(s) PO BID 05/31/20 18 2017 Inactive gabapentin 300 mg capsule RxNorm: 762969 1 Capsule(s) PO TID as needed 05/31/20 18 2017 Inactive atorvastatin 20 mg tablet RxNorm: 709341 1 Tablet(s) PO QHS 05/31/20 18 2017 Inactive True Metrix Glucose Test Strip RxNorm: 1 Test Strips [facility] 05/31/20 18 2017 Inactive 50/container Calcium 600-D3 Plus 600 mg calcium-800 unit-50 mg tablet RxNorm: 1 Tablet(s) PO daily take an additonal tablet for itching. 05/31/20 18 2017 Inactive hydrochlorothiazide 12.5 mg tablet RxNorm: 769023 1 Tablet(s) PO QAM 05/31/20 18 2017 Inactive Flintstones Complete (iron) 18 mg iron chewable tablet RxNorm: 1 Tablet(s) PO daily 05/31/20 18 2017 Inactive d-mannose oral powder RxNorm: PO 18 2021 Inactive True Metrix Glucose Meter RxNorm: miscellaneous 08/17/20 19 2018 Inactive sertraline 50 mg tablet RxNorm: 434329 1 Tablet(s) PO daily 11/28/19 20 2019 Inactive loperamide 2 mg tablet RxNorm: 179160 oral 09/29/20 19 2018 Inactive Symbicort 160 mcg-4.5 mcg/actuation HFA aerosol inhaler RxNorm: 2678341 2 Puff(s) INH BID 08/17/20 19 2018 Inactive Medication Administered No Medication Administered data Procedures Procedure Codes Date [place] Fany Assessment CPT-4: DSWA 12/01 Urinalysis, dip stick CPT-4: 13620 09/24/2020 Patient Health Questionnaire CPT-4: DPHQ Electrocardiogram CPT-4: 79872 05/14/2020 Tobacco Assessment/Screening CPT-4: TCA Fall Risk Assessment SNOMED CT: 63439472 4 CPT-4: DFRA01/01/2020Functional AssessmentCPT-4: DFA01/01/2020[place] Fany AssessmentCPT-4: DSWA11/28/2019Patient Health QuestionnaireCPT-4: DPHQ11/28/2019 [place] Fany AssessmentCPT-4: DSWA10/17/2019HypertensionCPT-4: HTN10/17/[address]: 744358922 CPT-4: DFRA09/19/2019Functional AssessmentCPT-4: DFA111/20/2018Urinalysis, dip stickCPT-4: 2574749Tobacco Assessment/ScreeningCPT-4: TCA05/24/2019 Patient Health QuestionnaireCPT-4: DPHQ05/24/2019AHA/REBECCA Classification AssessmentCPT-4: DAHA04/25/2019Controlled Substance ReportCPT-4: CTRSU04/25/2019 Urinalysis, dip stickCPT-4: 2575059Urinalysis, dip stickCPT-4: 26492 03/28/20196736A6S-EiuskszfpifbnepPXV-3: 12496GpxppoyQ2N-YkxueoryoxotgltTLH-1: 38910 VhehygnU9H-PsogsqaisnelbbjSXD-1: 62048LpoxatnG1H-PdaqynjqbtuxfmnBZB-7: 61465 JmpxhykO1R-HolgtkvikcwfiilTUO-8: 07542WvasqzeC1D-VunfozjcfanwcdpQNQ-8: [address]: 918822019 CPT-4: J69Pbyanbc Reason For Visit No Reason For Visit data Plan of Care Planned Activity Notes Codes Status Date Referral: Pending Gynecology Referral Informatio n Referral ProcessedReferral: Pending Pulmonology Referral InformationReferralProcessed Referral: Pending Psychiatry Referral InformationReferralInitiatedReferral: Pending Respiratory Services Referral InformationReferralInitiatedReferral: Pending Ophthalmology Referral InformationReferralInitiatedReferral: [facility] WPtel: [address] [place], [place] [phone] USWriter placed a call out to the patient to notify her that it has been recommended that she be seenby a urologist. Patient agreed to be seen, does not have a provider of choice and no transportationissues. Nuclear Medicine Technologist faxed referral and clinical notes to [facility] in [place], [place] near the patient's home. Patient to [...] seen and prefers a provider in the [place] or [place] area. Nuclear Medicine Technologist placed a call out to everyone listed in the area and the only location that was able to accept the patient's insurance was [address] [address] and spoke with Maylin. Maylin asked that the patient's referral, face sheet and visit notes be faxed to . Nuclear Medicine Technologist faxed over requested documents. Patient appointment confirmation letter generated and mailed to her home address. Patient to call to schedule an appointment.ProcessedReferral: [facility] WPtel: [address] [place] [address] [place], [place] [id number] USPatient notified that it has been advised that she be seen by Neurology. Patient agreed to be seen and prefers to be seen by a provider in the [place], [place] area. Patient denies any concerns with transportation, and prefers to schedule her own appointment. Nuclear Medicine Technologist [facility] and spoke with Neeraj [...]
--- OUTSIDE RECORDS SUMMARY | 2023-12-07 02:15 | XMS_ITS | CCD ---
Author Name Leena Culver NP Address [address] [place] [address] [address] [place] [address] Phone Organization [facility] Phone Care Team Providers Care Foxing Closer Name Role Phone Anna Culver NP Primary Care Provider Unav ailable Unavailable Chronic Care Management Unavaila ble Summary Purpose DataExchange Insurance Providers Payer name Policy type / Coverage type Covered democrat ID Effective Begin Date Effective End Date SUKI MAYO [id number] Unknown Unknown Family history Mother Diagnosis Age [...] 05/31/2018 Education level Unknown Some High School 10th05/31/20183133YbupxsjvfzIegmvgjYosxqcviqx03/29/2018Tobacco historySNOMED CT: 417710161Mvb never smoked or chewed rkrsfvi0505/31/2018Alcohol historySNOMED CT: 628028975Qowxj drinks [id number]/31/2018Has the patient ever used illegal drugs? UnknownHas never used illegal drugs05/31/2018DNR Order/ Advanced Directive UnknownFull Code05/31/2018 Allergies, Adverse Reactions, Alerts Substance Reaction Codes Entered Date Inactivated Date Status OxyContin itch, RxNorm: 300543 01/13/2021 No Inactive Da te Active *No known food allergies Ddhmdof5409/06/2018No Inactive DateActiveMethylprednisolonehivesRxNorm: 6902 09/06/2018No Inactive DateActive Problems Condition Codes Effective Dates Condition St atus Elevated liver enzymes ICD-10: R74.8 ICD-9: 790.504/1ActiveHyperlipidemia, unspecifiedICD-10: E78.5 ICD-9: 272.408/ActiveType 2 diabetes mellitus with peripheral neuropathy ICD-10: E11.42 ICD-9: 250.6002ActiveChronic kidney disease, stage 2 (mild)ICD-10: N18.2 ICD-9: 585.201/1ActiveGERD (gastroesophageal reflux disease)ICD-10: K21.9 ICD-9: 530.8112ActiveHistory of bladder surgeryICD-10: Z98.890 ICD-9: V45.8904/ctiveHypertensive heart disease with heart failureICD- 10: I11.0 ICD-9: 402.9107/ActiveUrinary retention with incomplete bladder emptying ICD-10: R33.9 ICD-9: 788.2104/1Active(Z00.01-V70.0) Encounter for general adult medical examination with abnormal findingsICD-10: Z00.01 ICD-9: V70.004/1Active(Z13.31-V79.0) Encounter for screening for depressionICD-10: Z13.31 ICD-9: V79.004/1ActiveEncounter for immunizationICD-10: Z23 ICD-9: V04.8109InactiveEssential (primary) hypertensionICD-10: I10 ICD-9: 401.901InactiveAnorexiaICD-10: R63.0 ICD-9: 783.003/1ActiveObstructive sleep apnea (adult) (pediatric)ICD-10: G47.33 ICD-9: 327.2309ActiveApnea, not elsewhere classifiedICD-10: R06.81 ICD-9: 786.0305InactiveChest pain, unspecifiedICD-10: R07.9 ICD-9: 786.5002InactiveChronic kidney disease, unspecifiedICD-10: N18.9 ICD-9: 585.909InactiveDiarrheaICD-10: R19.7 ICD-9: 787.9112/InactiveEncounter for immunizationICD-10: Z23 ICD-9: V03.907/InactiveEncounter for preprocedural cardiovascular examinationICD-10: Z01.810 ICD-9: V72.8106/InactiveHeadacheICD-10: R51 ICD-9: 784.001/10/2018InactiveOther chcf (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ICD-10: Z79.899 ICD-9: V58.6907/InactiveType 2 [...] for malignant neoplasm of cervixICD-10: Z12.4 ICD-9: V76.207ActiveHypothyroidism, unspecifiedICD-10: E03.9 ICD-9: 244.912Active(Z12.11-V76.51) Encounter for screening for malignant neoplasm of colonICD-10: Z12.11 ICD-9: V76.5107/Active(Z12.31-V76.12) Encounter for screening mammogram for malignant neoplasm of breastICD-10: Z12.31 ICD-9: V76.1207ActiveAdult BMI 50.0-59.9 kg/sq mICD-10: Z68.43 ICD-9: V85.4308ActiveSyncope and collapseICD-10: R55 ICD-9: 780.203ActiveFecal incontinenceICD-10: R15.9 ICD-9: 787.6003ActiveMixed incontinenceICD-10: N39.46 ICD-9: 788.3308ActiveAsthmaICD-10: J45.909 ICD-9: 493.9008/08/2018ActivePatient Not SeenICD-10: UXZ.01 ICD-9: XZ0.107ActiveDyspnea, unspecifiedICD-10: R06.00 ICD-9: 786.0905ActivePost-traumatic stress disorder, unspecifiedICD-10: F43.10 ICD-9: 309.8112ActiveAbnormal electrocardiogram [ECG] [EKG]ICD-10: R94.31 ICD-9: 794.31005/30/2018ActiveEdema, unspecifiedICD-10: R60.9 ICD-9: 782.310ActiveLong term (current) use of non-steroidal anti- inflammatories (NSAID)ICD-10: Z79.1 ICD-9: V58.64006/13/2018Active Medications Medication Codes Instructions Start Date Stop Date Status Fill Instructions levothyroxine 50 mcg tablet RxNorm: 922117 TAKE (1) TABLET BY MOUTH DAILY 02/04/20 21 2020 Inactive metformin 500 mg tablet RxNorm: 057707 1 Tablet(s) Oral two times a day take with 500mg to equal 1000mg 01/14/20 21 2020 Inactive gabapentin 300 mg capsule RxNorm: 163556 TAKE 1 CAPSULE BY MOUTH THREE TIMES A DAY 01/14/20 21 2020 Inactive lisinopril 2.5 mg tablet RxNorm: 139881 TAKE 1 TABLET BY MOUTH DAILY 01/06/20 21 2020 Inactive gabapentin 300 mg capsule RxNorm: 369513 TAKE 1 CAPSULE BY MOUTH THREE TIMES A DAY 01/06/20 21 2020 Inactive Singulair 10 mg tablet RxNorm: 452557 TAKE (1) TABLET BY MOUTH DAILY 01/06/20 21 2020 Inactive metformin 1,000 mg tablet RxNorm: 550361 1 Tablet(s) Oral two times a day 01/06/20 21 2020 Inactive atorvastatin 40 mg tablet RxNorm: 208025 1 Tablet(s) Oral every day 12/06/19 21 2020 Inactive omeprazole 20 mg capsule,delayed release RxNorm: 983147 1 Capsule(s) Oral every evening 11/24/19 21 2020 Inactive famotidine 10 mg tablet RxNorm: 948729 1 Tablet(s) Oral every morning 11/24/19 21 2020 Inactive Alcohol Prep Pads RxNorm: 430568 USE EACH MORNING 10/14/19 21 2020 Inactive omeprazole 20 mg capsule,delayed release RxNorm: 667337 1 Capsule(s) Oral two times a day 10/13/19 21 2021 Inactive omeprazole 20 mg capsule,delayed release RxNorm: 574815 TAKE 1 CAPSULE BY MOUTH EVERY DAY 10/08/19 21 2021 Inactive Macrobid 100 mg capsule RxNorm: 332439 1 Capsule(s) Oral every 12 hours with food 12/2020 Inactive omeprazole 20 mg capsule,delayed release RxNorm: 124672 1 Capsule(s) Oral two times a day 09/24/202021 Inactive metformin 1,000 mg tablet RxNorm: 252917 1 Tablet(s) Oral two times a day 08/19/202020 Inactive start on September 11, 2020 metformin 500 mg tablet RxNorm: 883271 1 Tablet(s) Oral two times a day take with 500mg to equal 1000mg 08/19/202019 Inactive gabapentin 300 mg capsule RxNorm: 575981 TAKE 1 CAPSULE BY MOUTH THREE TIMES DAILY 07/11/20 20 2020 Inactive cetirizine 10 mg tablet RxNorm: 3514253 TAKE (1) TABLET BY MOUTH DAILY 07/11/20 20 2020 Inactive metformin 500 mg tablet RxNorm: 852004 1 Tablet(s) Oral two times a day 07/08/202019 Inactive loperamide 2 mg tablet RxNorm: 556869 1 Tablet(s) Oral as needed take one tablet after each loose stool, maximum of 8 tablets in 24 hours 06/24/202021 Inactive Sudafed 12 Hour 120 mg tablet,extended release RxNorm: 1065148 TAKE 1 TABLET BY MOUTH EVERY 12 HOURS NEEDED 06/11/20 20 2019 Inactive hydrochlorothiazide 25 mg tablet RxNorm: 908265 TAKE (1) TABLET BY MOUTH EVERY DAY 06/11/202019 Inactive omeprazole 20 mg capsule,delayed release RxNorm: 899932 TAKE 1 CAPSULE BY MOUTH EVERY DAY 05/14/202020 Inactive metformin 500 mg tablet RxNorm: 107735 1 Tablet(s) Oral every day 05/12/202019 Inactive True Metrix Glucose Test Strip RxNorm: 1 Test Strips Miscellaneous two times a day as needed 04/17/20 No Stop Date Active metformin 500 mg tablet RxNorm: 000573 1 Tablet(s) Oral every day 04/17/20 20 2019 Inactive diclofenac sodium 75 mg tablet,delayed release RxNorm: 262509 1 Tablet(s) PO BID 04/14/20 20 2021 Inactive This refill negates all other refills of this medication Sudafed 12 Hour 120 mg tablet,extended release RxNorm: 3218146 TAKE 1 TABLET BY MOUTH EVERY 12 HOURS NEEDED 03/14/20 20 2019 Inactive True Metrix Glucose Test Strip RxNorm: 1 Test Strips Miscellaneous every morning 03/13/20 20 2019 Inactive 100/container True Metrix Glucose Test Strip RxNorm: 1 Test Strips Miscellaneous QAM 02/22/20 20 2019 Inactive 100/container loperamide 2 mg tablet RxNorm: 899197 1 Tablet(s) Oral as needed take one tablet after each loose stool, maximum of 8 tablets in 24 hours 02/22/20 20 2019 Inactive cetirizine 10 mg tablet RxNorm: 0932862 1 Tablet(s) PO daily 01/17/20 20 2019 Inactive loperamide 2 mg tablet RxNorm: 575324 1 Tablet(s) Oral as needed take one tablet after each loose stool, maximum of 8 tablets in 24 hours 01/17/20 20 2019 Inactive quetiapine 100 mg tablet RxNorm: 074832 1 Tablet(s) Oral every night at bedtime 01/17/20 20 2019 Inactive levothyroxine 50 mcg tablet RxNorm: 392987 1 Tablet(s) PO daily 01/17/20 20 2020 Inactive gabapentin 300 mg capsule RxNorm: 332439 1 Capsule(s) PO TID 01/17/20 20 2019 Inactive levothyroxine 50 mcg tablet RxNorm: 986684 1 Tablet(s) PO daily 01/15/20 20 2019 Inactive lisinopril 2.5 mg tablet RxNorm: 826981 1 Tablet(s) PO daily 01/15/20 20 2020 Inactive gabapentin 300 mg capsule RxNorm: 952556 1 Capsule(s) PO TID 01/15/20 20 2019 Inactive cetirizine 10 mg tablet RxNorm: 2042400 1 Tablet(s) PO daily 01/15/20 20 2019 Inactive Singulair 10 mg tablet RxNorm: 210452 1 Tablet(s) PO daily 01/15/20 20 2020 Inactive gentamicin 0.3 % eye drops RxNorm: 757787 1 Drop(s) ophthalmic (eye) four times a day 12/29/19 20 2019 Inactive gentamicin 0.3 % eye drops RxNorm: 206990 1 Drop(s) ophthalmic (eye) four times a day 12/29/19 20 2019 Inactive gentamicin 0.3 % eye drops RxNorm: 032605 1 Drop(s) ophthalmic (eye) four times a day 12/29/19 20 2019 Inactive hydrochlorothiazide 25 mg tablet RxNorm: 393254 1 Tablet(s) Oral every day 12/21/19 20 2019 Inactive Sudafed 12 Hour 120 mg tablet,extended release RxNorm: 7268126 TAKE (1) TABLET BY MOUTH EVERY 12 HOURS NEEDED 12/21/19 20 2019 Inactive loperamide 2 mg tablet RxNorm: 358078 1 Tablet(s) Oral as needed take one tablet after each loose stool, maximum of 8 tablets in 24 hours 12/11/19 20 2019 Inactive loperamide 2 mg tablet RxNorm: 846633 1 Tablet(s) Oral as needed take one tablet after each loose stool, maximum of 8 tablets in 24 hours 12/11/19 20 2019 Inactive atorvastatin 40 mg tablet RxNorm: 340627 1 Tablet(s) Oral every day 11/29/19 20 2020 Inactive quetiapine 100 mg tablet RxNorm: 435478 1 Tablet(s) Oral every night at bedtime 11/28/19 20 2019 Inactive sertraline 100 mg tablet RxNorm: 054056 1 Tablet(s) Oral 11/28/19 20 2019 Inactive omeprazole 20 mg capsule,delayed release RxNorm: 379166 1 Capsule(s) Oral every day 11/20/19 20 2019 Inactive amoxicillin 250 mg capsule RxNorm: 934577 1 Capsule(s) Oral three times a day 11/07/19 20 2019 Inactive multivitamin with iron-mineral tablet RxNorm: 1 Tablet(s) Oral every day 10/29/19 20 2021 Inactive cetirizine 10 mg tablet RxNorm: 9493626 1 Tablet(s) PO daily 10/20/19 20 2019 Inactive This refill negates all other refills of this medication. Please do not auto refill Singulair 10 mg tablet RxNorm: 162573 1 Tablet(s) PO daily 10/20/19 20 2019 Inactive This refill negates all other refills of this medication gabapentin 300 mg capsule RxNorm: 351080 1 Capsule(s) PO TID 10/20/19 20 2019 Inactive lisinopril 2.5 mg tablet RxNorm: 764697 1 Tablet(s) PO daily 10/20/19 20 2019 Inactive levothyroxine 50 mcg tablet RxNorm: 687665 1 Tablet(s) PO daily 10/20/19 20 2019 Inactive This refill negates all other refills of this medication fenugreek seed extract 500 mg capsule RxNorm: 1 Capsule(s) Oral three times a day 10/17/19 20 2021 Inactive hydrochlorothiazide 25 mg tablet RxNorm: 799883 1 Tablet(s) Oral every day 10/17/19 20 2019 Inactive Alcohol Prep Pads RxNorm: 321319 1 Patch TOP QAM 10/16/19 20 2020 Inactive loperamide 2 mg tablet RxNorm: 044402 1 Tablet(s) Oral as needed take one [...] 2019 Inactive hydrochlorothiazide 25 mg tablet RxNorm: 100342 1 Tablet(s) Oral every day 09/19/20 19 2019 Inactive Sudafed 12 Hour 120 mg tablet,extended release RxNorm: 2384796 1 Tablet(s) Oral every 12 hours as needed 09/11/20 19 2018 Inactive omeprazole 20 mg capsule,delayed release RxNorm: 224265 1 Capsule(s) Oral every day 09/07/20 19 2019 Inactive Sudafed 12 Hour 120 mg tablet,extended release RxNorm: 6104038 1 Tablet(s) Oral every 12 hours as needed 09/04/20 19 2018 Inactive pantoprazole 40 mg tablet,delayed release RxNorm: 012288 1 Tablet(s) Oral every day 08/24/20 19 2018 Inactive discontinue any other H2Blkr. and PPI albuterol sulfate 2.5 mg/3 mL (0.083 %) solution for nebulization RxNorm: 450715 1 Vial Inhalation every four hours as needed as needed for dyspnea 08/17/202019 Inactive 60/box. This refill negates all other refills of this medication. Please do not fill early. Please do not auto refill. Symbicort 160 mcg-4.5 mcg/actuation HFA aerosol inhaler RxNorm: 8560704 2 Puff(s) INH BID 08/17/20 19 No Stop Date Active Alcohol Prep Pads RxNorm: 382205 1 Patch TOP QAM 08/17/20 19 2019 Inactive Ventolin HFA 90 mcg/actuation aerosol inhaler RxNorm: 776118 2 Puff(s) INH QID 08/09/20 19 2019 Inactive Please do not fill early. Please do not auto refill. This refill negates all other refills of this medication True Metrix Glucose Test Strip RxNorm: 1 Test Strips Miscellaneous QAM 08/09/20 19 2019 Inactive 100/container atorvastatin 40 mg tablet RxNorm: 094402 1 Tablet(s) Oral every day 07/04/20 19 2019 Inactive levmetamfetamine 50 mg nasal inhaler RxNorm: 1 Unit(s) NASAL Q3-4H Do not use more than every 3 hours or 8 times/24hours 06/26/20 19 2021 Inactive Please do not auto refill. This refill negates all other refills of this medication buspirone 7.5 mg tablet RxNorm: 285373 1 Tablet(s) PO BID 06/26/20 19 2020 Inactive This refill negates all other refills of this medication hydrochlorothiazide 12.5 mg tablet RxNorm: 878309 1 Tablet(s) PO QAM 06/26/20 19 2019 Inactive Ventolin HFA 90 mcg/actuation aerosol inhaler RxNorm: 022442 2 Puff(s) INH QID 06/26/20 19 2018 Inactive Please do not fill early. Please do not auto refill. This refill negates all other refills of this medication Singulair 10 mg tablet RxNorm: 199634 1 Tablet(s) PO daily 06/26/20 19 2019 Inactive This refill negates all other refills of this medication cetirizine 10 mg tablet RxNorm: 0153371 1 Tablet(s) PO daily 06/26/20 19 2019 Inactive This refill negates all other refills of this medication. Please do not auto refill levothyroxine 50 mcg tablet RxNorm: 461049 1 Tablet(s) PO daily 06/26/20 19 2019 Inactive This refill negates all other refills of this medication diclofenac sodium 75 mg tablet,delayed release RxNorm: 399129 1 Tablet(s) PO BID 06/26/20 19 2019 Inactive This refill negates all other refills of this medication ranitidine 150 mg tablet RxNorm: 625403 1 Tablet(s) PO BID 06/26/20 19 2018 Inactive This refill negates all other refills of this medication Calcium 600-D3 Plus (mag-zinc) 600 mg calcium-800 unit-50 mg tablet RxNorm: 1 Tablet(s) PO daily take an additonal tablet for itching. 06/26/20 19 2018 Inactive This refill negates all other refills of this medication albuterol sulfate 2.5 mg/3 mL (0.083 %) solution for nebulization RxNorm: 126126 1 Vial INH QID 06/26/20 19 2018 Inactive 60/box. This refill negates all other refills of this medication. Please do not fill early. Please do not auto refill. lisinopril 2.5 mg tablet RxNorm: 134278 1 Tablet(s) PO daily 06/21/20 19 2019 Inactive gabapentin 300 mg capsule RxNorm: 690889 1 Capsule(s) PO TID 06/21/20 19 2019 Inactive atorvastatin 20 mg tablet RxNorm: 561733 1 Tablet(s) PO QHS 06/07/202018 Inactive This refill negates all other refills of this medication TRUEplus Lancets 30 gauge RxNorm: 1 Lancets Miscellaneous QAM 05/29/20 19 2018 Inactive 100/box gabapentin 300 mg capsule RxNorm: 315696 1 Capsule(s) PO TID 05/03/20 19 2018 Inactive Flnickolas Complete (iron) 18 mg iron chewable tablet RxNorm: 1 Tablet(s) PO daily 04/04/20 19 2021 Inactive This refill negates all other refills of this medication gabapentin 300 mg capsule RxNorm: 458628 1 Capsule(s) PO TID as needed 02/01/20 19 2018 Inactive True Metrix Glucose Test Strip RxNorm: 1 Test Strips Miscellaneous QA 02/01/20 19 2018 Inactive 100/container Alcohol Prep Pads RxNorm: 306531 1 Patch TOP QA 02/01/20 19 2018 Inactive TRUEplus Lancets 30 gauge RxNorm: 1 Lancets Miscellaneous QAM 02/01/20 19 2018 Inactive 100/box lisinopril 2.5 mg tablet RxNorm: 815967 1 Tablet(s) PO daily 12/28/19 19 2018 Inactive ranitidine 150 mg tablet RxNorm: 000121 1 Tablet(s) PO BID 10/21/19 19 2018 Inactive This refill negates all other refills of this medication albuterol sulfate 2.5 mg/3 mL (0.083 %) solution for nebulization RxNorm: 295592 1 Vial INH QID 10/21/19 19 2018 [...] this medication gabapentin 300 mg capsule RxNorm: 822004 1 Capsule(s) PO TID as needed 10/21/192018 Inactive atorvastatin 20 mg tablet RxNorm: 354292 1 Tablet(s) PO QHS 10/21/192018 Inactive This refill negates all other refills of this medication trazodone 50 mg tablet RxNorm: 507794 1 Tablet(s) PO QHS 10/21/192018 Inactive This refill negates all other refills of this medication Ventolin HFA 90 mcg/actuation aerosol inhaler RxNorm: 321663 2 Puff(s) INH QID 10/21/192018 Inactive Please do not fill early. Please do not auto refill. This refill negates all other refills of this medication Calcium 600-D3 Plus 600 mg calcium-800 unit-50 mg tablet RxNorm: 1 Tablet(s) PO daily take an additonal tablet for itching. 10/21/192018 Inactive This refill negates all other refills of this medication Singulair 10 mg tablet RxNorm: 620547 1 Tablet(s) PO daily 10/21/192018 Inactive This refill negates all other refills of this medication buspirone 7.5 mg tablet RxNorm: 647066 1 Tablet(s) PO BID 10/21/192018 Inactive This refill negates all other refills of this medication diclofenac sodium 75 mg tablet,delayed release RxNorm: 814702 1 Tablet(s) PO BID 10/21/19 19 2018 Inactive This refill negates all other refills of this medication hydrochlorothiazide 12.5 mg tablet RxNorm: 392089 1 Tablet(s) PO QAM 10/21/19 19 2018 Inactive metoprolol succinate ER 50 mg tablet,extended release 24 hr RxNorm: 440247 1 Tablet(s) PO daily 10/21/19 19 2018 Inactive This refill negates all other refills of this medication levothyroxine 50 mcg tablet RxNorm: 077483 1 Tablet(s) PO daily 10/21/19 19 2018 Inactive This refill negates all other refills of this medication cetirizine 10 mg tablet RxNorm: 8095269 1 Tablet(s) PO daily 10/21/192018 Inactive This refill negates all other refills of this medication. Please do not auto refill Flintstones Complete (iron) 18 mg iron chewable tablet RxNorm: 1 Tablet(s) PO daily 10/21/19 19 2018 Inactive This refill negates all other refills of this medication buspirone 7.5 mg tablet RxNorm: 517902 1 Tablet(s) PO BID 10/12/19 19 2018 Inactive cetirizine 10 mg tablet RxNorm: 9245884 1 Tablet(s) PO daily 09/28/202018 Inactive Guaiasorb DM 10 mg-100 mg/5 mL oral liquid RxNorm: 262163 10 Milliliter(s) PO As needed every 4 hr 09/24/202018 Inactive Vicks Vaporub 4.7 %-1.2 %-2.6 % topical ointment RxNorm: 8549618 1 Application TOP TID 09/24/20 18 2018 Inactive levmetamfetamine 50 mg nasal inhaler RxNorm: 1 Unit(s) NASAL Q3-4H 09/24/20 18 2017 Inactive sertraline 50 mg tablet RxNorm: 549169 1 Tablet(s) PO daily 09/09/20 18 2018 Inactive Please note dose trazodone 50 mg tablet RxNorm: 557315 1 Tablet(s) PO QHS 12/05/20 18 2018 Inactive sertraline 50 mg tablet RxNorm: 763679 1 Tablet(s) PO daily 09/06/20 18 2017 Inactive amoxicillin 500 mg tablet RxNorm: 486527 1 Tablet(s) PO Q12H 08/31/20 18 2017 Inactive albuterol sulfate 2.5 mg/3 mL (0.083 %) solution for nebulization RxNorm: 732573 1 Vial INH QID 08/10/20 18 2018 Inactive 60/box. Please do not fill early. Please do not auto refill. Prozac 10 mg capsule RxNorm: 794590 1 Capsule(s) PO daily 08/09/20 18 2017 Inactive buspirone 7.5 mg tablet RxNorm: 273601 1 Tablet(s) PO BID 08/09/20 18 2018 Inactive gabapentin 300 mg capsule RxNorm: 694360 1 Capsule(s) PO TID as needed 08/01/20 18 2018 Inactive hydrochlorothiazide 12.5 mg tablet RxNorm: 503727 1 Tablet(s) PO QAM 08/01/20 18 2018 Inactive ranitidine 150 mg tablet RxNorm: 406205 1 Tablet(s) PO BID 08/01/20 18 2018 Inactive Macrobid 100 mg capsule RxNorm: 942977 1 Capsule(s) PO Q12H 06/21/20 18 2017 Inactive Singulair 10 mg tablet RxNorm: 005686 1 Tablet(s) PO daily 06/14/20 18 2018 Inactive Ventolin HFA 90 mcg/actuation aerosol inhaler RxNorm: 9649874 2 Puff(s) INH QID 06/14/20 18 2018 Inactive Singulair 10 mg tablet RxNorm: 619670 1 Tablet(s) PO daily 06/14/20 18 2017 Inactive buspirone 7.5 mg tablet RxNorm: 495152 1 Tablet(s) PO BID 06/14/20 18 2017 Inactive Prozac 10 mg capsule RxNorm: 005753 1 Capsule(s) PO daily 06/14/20 18 2017 Inactive Neilmed Pediatric Sinus Rinse Refill packet RxNorm: 1 Unit Dose NASAL PRN 05/31/20 18 2021 Inactive diclofenac sodium 75 mg tablet,delayed release RxNorm: 173842 1 Tablet(s) PO BID 05/31/20 18 2017 Inactive lisinopril 2.5 mg tablet RxNorm: 756142 1 Tablet(s) PO daily 05/31/20 18 2017 Inactive metoprolol succinate ER 50 mg tablet,extended release 24 hr RxNorm: 050315 1 Tablet(s) PO daily 05/31/20 18 2017 Inactive levothyroxine 50 mcg tablet RxNorm: 429921 1 Tablet(s) PO daily 05/31/20 18 2017 Inactive TRUEplus Lancets 30 gauge RxNorm: 1 Lancets Miscellaneous QAM 05/31/20 18 2017 Inactive 100/box Ventolin HFA 90 mcg/actuation aerosol inhaler RxNorm: 959985 2 Puff(s) INH QID 05/31/20 18 2017 Inactive Aleve 220 mg capsule RxNorm: 5474084 1 Capsule(s) PO BID 05/31/20 18 2018 Inactive ranitidine 150 mg tablet RxNorm: 376528 1 Tablet(s) PO BID 05/31/20 18 2017 Inactive gabapentin 300 mg capsule RxNorm: 108826 1 Capsule(s) PO TID as needed 05/31/20 18 2017 Inactive atorvastatin 20 mg tablet RxNorm: 223374 1 Tablet(s) PO QHS 05/31/20 18 2017 Inactive True Metrix Glucose Test Strip RxNorm: 1 Test Strips Miscellaneous QAM 05/31/20 18 2017 Inactive 50/container Calcium 600-D3 Plus 600 mg calcium-800 unit-50 mg tablet RxNorm: 1 Tablet(s) PO daily take an additonal tablet for itching. 05/31/20 18 2017 Inactive hydrochlorothiazide 12.5 mg tablet RxNorm: 664420 1 Tablet(s) PO QAM 05/31/20 18 2017 Inactive Flintstones Complete (iron) 18 mg iron chewable tablet RxNorm: 1 Tablet(s) PO daily 05/31/20 18 2017 Inactive d-mannose oral powder RxNorm: PO 18 2021 Inactive True Metrix Glucose Meter RxNorm: miscellaneous 08/17/20 19 2018 Inactive sertraline 50 mg tablet RxNorm: 749113 1 Tablet(s) PO daily 11/28/19 20 2019 Inactive loperamide 2 mg tablet RxNorm: 636609 oral 09/29/20 19 2018 Inactive Symbicort 160 mcg-4.5 mcg/actuation HFA aerosol inhaler RxNorm: 2194003 2 Puff(s) INH BID 08/17/20 19 2018 Inactive Medication Administered No Medication Administered data Procedures Procedure Codes Date Mini Mental State Exam CPT-4: DMMA 1 Annual Wellness Visit (Subsequent Visit) CPT-4: G0439 01/13/2021 Advanced Care Planning CPT-4: VACP 1 Fall Risk Assessment SNOMED CT: 79489762 4 CPT-4: DFRA1[place]mes Fany AssessmentCPT-4: DSWA12/17/2020Urinalysis, dip stickCPT-4: 985417109/24/2020Patient Health QuestionnaireCPT-4: DPHQ 08/19/2020ElectrocardiogramCPT-4: 349961505/14/2020Tobacco Assessment/Screening CPT-4: TCA01/01/2020Fall Risk AssessmentSNOMED CT: 425330139 CPT-4: DFRA01/01/2020Functional AssessmentCPT-4: DFA01/01/2020[place] F[place] AssessmentCPT-4: DSWA11/28/2019Patient Health QuestionnaireCPT-4: DPHQ11/28/2019 [place] Fany AssessmentCPT-4: DSWA10/17/2019HypertensionCPT-4: HTN10/17/[address]: 732810811 CPT-4: DFRA09/19/2019Functional AssessmentCPT-4: DFA111/20/2018Urinalysis, dip stickCPT-4: 1599236Tobacco Assessment/ScreeningCPT-4: TCA05/24/2019 Patient Health QuestionnaireCPT-4: DPHQ05/24/2019AHA/REBECCA Classification AssessmentCPT-4: DAHA04/25/2019Controlled Substance ReportCPT-4: CTRSU04/25/2019 Urinalysis, dip stickCPT-4: 771311603/28/2019Urinalysis, dip stickCPT-4: 91852 03/28/20198217P6B-PmstoitesrrcmolNMH-4: 14035AniwbgkN3D-MgkzwouaxupmtgnDSK-2: 28036 TzbifvgU1I-HummaaqjtmynxwyXNB-3: 32769HryeepaG7L-XfhalkosszsfsnfYQC-2: 94853 NiapzyaQ9J-TlvjpelxfrbdvxcCFI-2: 78110QzmfnrfB3M-GjvnhgvjvoexcntJAK-2: 89428 HnyezucY9U-MuwmkeelgxykzszTDG-2: 17079RofsgudGdnzqralou ReferralSNOMED CT: 495823140 CPT-4: R41Mdujjlh Vital Signs Date Vital 02/11/2021 Blood Pressure 1: 96/74 Code: 8480-6 BMI: 53.1 Code: 77679-6 Heart Rate 1: 72 bpm Height: 4'11 Code: 8302-2 Respiratory Rate: 18 bpm SpO2: 98% Temperature: 36.5 (C) / 97.7 (F) Weight: 263 lbs Code: 98861-0 Reason For Visit Reason For Visit Effective Dates Notes diabetes mellitus 02/11/2021 hyperlipidemia disease 02/11/2021 Interim health update 02/11/2021 Encounters Encounter Performer Location Location Address Codes [facility] [facility] HOME VISIT EST PATIENT Diagnosis: Type 2 diabetes mellitus with peripheral neuropathy[ICD10: E11.42] Diagnosis: Elevated liver enzymes[ICD10: R74.8] Diagnosis: Hyperlipidemia, unspecified[ICD10: E78.5]Anna Bourgeois [id number] [place] [address] [id number]: [id number] 02/11/2021 Plan of Care Planned Activity Notes [...] full taking away appetite discussed benefits of [place] Instant Breakfast. note weight has remained stable [...] received new monitor [employer] through [employer]-participant of [place] on demand - 01/29/2021 Hgb A1C 5.3 10/17/2019 [place] Fany 04/11-instructed on good daily foot care [...] improved, urinating ~ 5 times per day K21.9- 530.81 GERD (gastroesophageal reflux disease) continue famotidine 10mg qam and omeprazole 20mg -improved advised to limit late evening eating, avoidfried, greasy foods, and carbonated beverages G47.33-327.23 Obstructive sleep apnea (adult) (pediatric) J45.909-493.90 Asthma has had a few nights of not wearing her cpap-discussed wearing at all times continue inhalers nebulizer routine f/u Dr. Garcia, pulmonology F43.23-309.28 Adjustment disorder with mixed anxiety and depressed mood routine follow up [facility] 08/19/2020 PHQ 9 Scoere 1, admits to feeling down at times due to not able to bring dog to new apartment and occasionally misses Functional Assessment independent with ADLs E03.9-244.9 Hypothyroidism, unspecified cont levothyroxine E78.5-272.4 Hyperlipidemia, unspecified 01/29/2021 alkaline phos 228 AST 40 ALT 157 plan d/c atorvastatin and recheck labs next month, may need to start another medication forongoing hyperlipidemia avoid high fat, fried foods discussed benefits of increased activity Z23-V04.81 Encounter for immunization 06/12/2020 influenza vaccine offered and accepted N39.46-788.33 Mixed i ncontinence use of incontinence supplies R55-780.2 Syncope and collapse denies any recent episodes advise to check BS when feeling light headed Z00.01-V70.0 (Z00.01-V70.0) Encounter for general adultmedical examination with abnormal findings 01/13/2021 AWV complete 01/13/2021 ACP review 01/13/2021 FRA complete- denies any falls 01/13/2021 Functional assessment complete-independent with ADLs 01/13/2021HQ 2 Score 0 Z13.9-V82.9 Encounter for screening, unspecified 07/08/2020 Maltreatment assessment complete-patient denies any form of abuse or neglect Z68.43-V85.43 Adult BMI 50.0-59.9 kg/sq continuesto loose weight trying to avoid soda, drinking sparkling flavored pal Z12.4-V76.2 Encounter for s creening for malignant neoplasm of cervix last pap January 2019 new appt for pap in June 2020-[facility]-reports pap negative-records requested Z01.89- V72.85 Encounter for screening for tobacco use 12/31/2020 Tobacco screen complete-patient denies ever smoking Z12.31-V76.12 (Z12.31-V76.12) Encounter for screening mammogram for malignant neoplasm of breast Z12.11-V76.51 (Z12.11- V76.51) Encounter for screening for malignant neoplasm of colon Preventative testing not indicated due to age *Ireviewed the most recent CDC guidelines regarding Covid-19/Coronavirus with the patient/caregiver/designee 1Patient Education: Patient Medication ShqgasjHogslnexd30/12/2021 Patient Education: NehmhpaEnjzgadzh12/12/2021atient Education: Diabetes Nngrmakoj67/12/2021ppointment: Chivo Bishop WPtel: [id number] [place] [address] [id number]: Anna Culver WPtel: [address] [place] [address] USETV01/13/2021ppointment: Anna Culver WPtel: [address] [place] [address] [id number]: Chivo Bishop WPtel: [address] [place] [address] USETV11/28/2020ppointment: Anna Culver WPtel: [address] [place] [address] USETV11/24/2020ppointment: Anna Culver WPtel: [address] [place] [address] [id number]: Anna Culver WPtel: [address] [place] [address] [id number]/25/2019Appointment: Anna Culver WPtel: [address] [place] [address] USETV110/26/2019Appointment: Anna Culver WPtel: [id number] [place] [address] USETV110/19/2019Appointment: Anna Culver WPtel: [id number] [place] [address] [id number]: Anna Culver WPtel: [id number] [place] [address] USETV10Appointment: VinnieJaylon ballardGiannaalex Cornejoel: [address] [facility] 100 [id number]: Anna Culver WPtel: [id number] [place] [address] [id number]: Anna Culver WPtel: [id number] [place] [address] [id number]: Anna Culver WPtel: [address] [place] [address] [id number]: Anna Culver WPtel: [id number] [place] [address] [id number]: Anna Culver WPtel: [id number] [place] [address] [id number]: Anna Culver WPtel: [id number] [place] [address] [id number]: Anna Culver WPtel: [id number] [place] [address] [id number]/Appointment: Anna Culver WPtel: [id number] [place] [address] [id number]/Appointment: Anna Culver WPtel: [id number] [place] [address] [id number]/Appointment: Anna Culver WPtel: [address] [place], [place] [id number] [id number]/20/2018Appointment: Sudha Hernadez WPtel: [address] [facility] [address] [id number]: Sudha Hernadez WPtel: [address] [facility] [address] [id number]: Charlene Oropeza WPtel: [address] [facility] [address] [id number]: Enedelia Delgado45Appointment: Charlene Oropeza WPtel: [address] [facility] b [id number]: Haupricht, Rasta WPtel: [address] [facility] [address] [id number]: Haupricht, Rasta WPtel: [address] [facility] b [id number]: Haupricht, Rasta WPtel: [address] [facility] [address] [id number]: Haupricht, Rasta WPtel: [address] [facility] [address] [id number]: Pending Gynecology Referral InformationReferral ProcessedReferral: Pending Pulmonology Referral InformationReferralProcessed Referral: Pending Psychiatry Referral InformationReferralInitiatedReferral: Pending Respiratory Services Referral InformationReferralInitiatedReferral: Pending Ophthalmology Referral InformationReferralInitiatedReferral: [facility] WPtel: [address] [place] [address] [id number] USWriter placed a call out to the patient to notify her that it has been recommended that she be seenby a urologist. Patient agreed to be seen, does not have a provider of choice and no transportationissues. Wedding Cake Designer faxed referral and clinical notes to [facility] in [place], [place] near the patient's home. Patient to [...] seen and prefers a provider in the [place] or [place] area. Wedding Cake Designer placed a call out to everyone listed in the area and the only location that was able to accept the patient's insurance was [address] [id number] and spoke with Maylin. Maylin asked that the patient's referral, face sheet and visit notes be faxed to . Wedding [employer] Designer faxed over requested documents. Patient appointment confirmation letter generated and mailed to her home address. Patient to call to schedule an appointment.ProcessedReferral: [facility] WPtel: [address] [facility] [address] [place], [place] [id number] USPatient notified that it has been advised that she be seen by Neurology. Patient agreed to be seen and prefers to be seen by a provider in the [place], [place] area. Patient denies any concerns with transportation, and prefers to schedule her own appointment. Wedding Cake Designer placed a [facility] and spoke with Neeraj Mcfarland: [...] full taking away appetite discussed benefits of [place] Instant Breakfast. note weight has remained stable over the past couple months-will continue to monitor E11.42-250.60 Type 2 diabetes mellitus with peripheral neuropathy ranging 94-142 -felt this was isolated, most are staying under 130 Metformin 1000mg BID - elevated liver enzymes noted with last labs, will check labs next month, mayneed to make adjustments to this medication received new monitor Alexel through [place]-participant of [place] on demand - 01/29/2021 Hgb A1C 5.3 10/17/2019 [place] Fany /10-instructed on good daily foot care [...] anxiety and depressed mood routine follow up [place] [facility] [place] 08/19/2020 PHQ 9 Scoere 1, admits to feeling down at times due to not able to bring dog to new apartment and occasionally misses Functional Assessment independent with ADLs E03.9-244.9 Hypothyroidism, unspecified cont levothyroxine E78.5-272.4 Hyperlipidemia, unspecified 01/29/2021 alkaline phos 228; AST 40; ALT 157 plan d/c atorvastatin and recheck labs next month, may need to start another medication for ongoinghyperlipidemia avoid high fat, fried foods discussed benefits [...] new appt for pap in June 2020-[facility]-reports pap negative-recordsrequested Z01.89-V72.85 Encounter for screening for [...]
--- OUTSIDE RECORDS SUMMARY | 2023-12-07 02:15 | XMS_ITS | CCD ---
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 [employer] Name Role Phone Palomo KING, Anna Primary Care Provider Unav ailable Unavailable Chronic Care Management Unavaila ble Summary Purpose DataExchange Insurance Providers Payer name Policy type / Coverage type Covered alliance party ID Effective Begin Date Effective End Date SUKI MAYO [id number] Unknown Unknown Family history Mother Diagnosis Age [...] 05/31/2018 Education level Unknown Some High School 10th05/31/20185208IphhmykpyvOdzlvsvKahqqlyhkr13/29/2018Tobacco historySNOMED CT: 531198536Wrv never smoked or chewed fzjsrtf1605/31/2018Alcohol historySNOMED CT: 835434747Zhgrp drinks puogvzg6805/31/2018Has the patient ever used illegal drugs? UnknownHas never used illegal drugs05/31/2018DNR Order/ Advanced Directive UnknownFull Code05/31/2018 Allergies, Adverse Reactions, Alerts Substance Reaction Codes Entered Date Inactivated Date Status *No known food allergies Orghwfw0209/06/2018No Inactive DateActiveMethylprednisolonehivesRxNorm: 6902 09/06/2018No Inactive DateActive Problems [...] examinationICD-10: Z01.810 ICD-9: V72.8106InactiveHeadacheICD-10: R51 ICD-9: 784.001InactiveOther nursing home (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ICD-10: Z79.899 ICD-9: V58.6907InactiveType 2 [...] Fill Instructions lisinopril 2.5 mg tablet RxNorm: 931069 TAKE 1 TABLET BY MOUTH DAILY 01/06/202020 Inactive gabapentin 300 mg capsule RxNorm: 903847 TAKE 1 CAPSULE BY MOUTH THREE TIMES A DAY 01/06/20 21 2020 Inactive Singulair 10 mg tablet RxNorm: 206402 TAKE (1) TABLET BY MOUTH DAILY 01/06/202020 Inactive metformin 1,000 mg tablet RxNorm: 968649 1 Tablet(s) Oral two times a day 01/06/202020 Inactive atorvastatin 40 mg tablet RxNorm: 474486 1 Tablet(s) Oral every day 12/06/19 21 2020 Inactive omeprazole 20 mg capsule,delayed release RxNorm: 163629 1 Capsule(s) Oral every evening 11/24/19 21 2020 Inactive famotidine 10 mg tablet RxNorm: 834129 1 Tablet(s) Oral every morning 11/24/19 21 2020 Inactive Alcohol Prep Pads RxNorm: 172443 USE EACH MORNING 10/14/19 21 2020 Inactive omeprazole 20 mg capsule,delayed release RxNorm: 568945 1 Capsule(s) Oral two times a day 10/13/19 21 2021 Inactive omeprazole 20 mg capsule,delayed release RxNorm: 889991 TAKE 1 CAPSULE BY MOUTH EVERY DAY 10/08/192021 Inactive Macrobid 100 mg capsule RxNorm: 842100 1 Capsule(s) Oral every 12 hours with food 10/01/202020 Inactive omeprazole 20 mg capsule,delayed release RxNorm: 140291 1 Capsule(s) Oral two times a day 09/24/20 20 2021 Inactive metformin 1,000 mg tablet RxNorm: 272496 1 Tablet(s) Oral two times a day 08/19/20 20 2020 Inactive start on September 11, 2020 metformin 500 mg tablet RxNorm: 329710 1 Tablet(s) Oral two times a day take with 500mg to equal 1000mg 08/19/20 20 2019 Inactive cetirizine 10 mg tablet RxNorm: 5591865 TAKE (1) TABLET BY MOUTH DAILY 07/11/20 20 2020 Inactive gabapentin 300 mg capsule RxNorm: 425957 TAKE 1 CAPSULE BY MOUTH THREE TIMES DAILY 07/11/20 20 2020 Inactive metformin 500 mg tablet RxNorm: 151337 1 Tablet(s) Oral two times a day 07/08/20 20 2019 Inactive loperamide 2 mg tablet RxNorm: 840047 1 Tablet(s) Oral as needed take one tablet after each loose stool, maximum of 8 tablets in 24 hours 06/24/20 20 2021 Inactive Sudafed 12 Hour 120 mg tablet,extended release RxNorm: 7328469 TAKE 1 TABLET BY MOUTH EVERY 12 HOURS NEEDED 06/11/20 20 2019 Inactive hydrochlorothiazide 25 mg tablet RxNorm: 833134 TAKE (1) TABLET BY MOUTH EVERY DAY 06/11/20 20 2019 Inactive omeprazole 20 mg capsule,delayed release RxNorm: 090736 TAKE 1 CAPSULE BY MOUTH EVERY DAY 05/14/20 20 2020 Inactive metformin 500 mg tablet RxNorm: 026239 1 Tablet(s) Oral every day 05/12/20 20 2019 Inactive True Metrix Glucose Test Strip RxNorm: 1 Test Strips Miscellaneous two times a day as needed 04/17/20 No Stop Date Active metformin 500 mg tablet RxNorm: 282413 1 Tablet(s) Oral every day 04/17/20 20 2019 Inactive diclofenac sodium 75 mg tablet,delayed release RxNorm: 597299 1 Tablet(s) PO BID 04/14/20 20 2021 Inactive This refill negates all other refills of this medication Sudafed 12 Hour 120 mg tablet,extended release RxNorm: 3598321 TAKE 1 TABLET BY MOUTH EVERY 12 HOURS NEEDED 03/14/20 20 2019 Inactive True Metrix Glucose Test Strip RxNorm: 1 Test Strips Miscellaneous every morning 03/13/20 20 2019 Inactive 100/container True Metrix Glucose Test Strip RxNorm: 1 Test Strips Miscellaneous QA 02/22/20 20 2019 Inactive 100/container loperamide 2 mg tablet RxNorm: 122355 1 Tablet(s) Oral as needed take one tablet after each loose stool, maximum of 8 tablets in 24 hours 02/22/20 20 2019 Inactive levothyroxine 50 mcg tablet RxNorm: 618891 1 Tablet(s) PO daily 01/17/20 20 2020 Inactive cetirizine 10 mg tablet RxNorm: 6363370 1 Tablet(s) PO daily 01/17/20 20 2019 Inactive loperamide 2 mg tablet RxNorm: 517335 1 Tablet(s) Oral as needed take one tablet after each loose stool, maximum of 8 tablets in 24 hours 01/17/2019 02/21/ 2020 Inactive quetiapine 100 mg tablet RxNorm: 222356 1 Tablet(s) Oral every night at bedtime 01/17/20 20 2019 Inactive gabapentin 300 mg capsule RxNorm: 696651 1 Capsule(s) PO TID 01/17/20 20 2019 Inactive levothyroxine 50 mcg tablet RxNorm: 814173 1 Tablet(s) PO daily 01/15/20 20 2019 Inactive lisinopril 2.5 mg tablet RxNorm: 960614 1 Tablet(s) PO daily 01/15/20 20 2020 Inactive gabapentin 300 mg capsule RxNorm: 704729 1 Capsule(s) PO TID 01/15/20 20 2019 Inactive cetirizine 10 mg tablet RxNorm: 4234957 1 Tablet(s) PO daily 01/15/20 20 2019 Inactive Singulair 10 mg tablet RxNorm: 616864 1 Tablet(s) PO daily 01/15/20 20 2020 Inactive gentamicin 0.3 % eye drops RxNorm: 388953 1 Drop(s) ophthalmic (eye) four times a day 12/29/19 20 2019 Inactive gentamicin 0.3 % eye drops RxNorm: 208977 1 Drop(s) ophthalmic (eye) four times a day 12/29/19 20 2019 Inactive gentamicin 0.3 % eye drops RxNorm: 665640 1 Drop(s) ophthalmic (eye) four times a day 12/29/19 20 2019 Inactive hydrochlorothiazide 25 mg tablet RxNorm: 746795 1 Tablet(s) Oral every day 12/21/19 20 2019 Inactive Sudafed 12 Hour 120 mg tablet,extended release RxNorm: 3118833 TAKE (1) TABLET BY MOUTH EVERY 12 HOURS NEEDED 12/21/19 20 2019 Inactive loperamide 2 mg tablet RxNorm: 164498 1 Tablet(s) Oral as needed take one tablet after each loose stool, maximum of 8 tablets in 24 hours 12/11/19 20 2019 Inactive loperamide 2 mg tablet RxNorm: 980993 1 Tablet(s) Oral as needed take one tablet after each loose stool, maximum of 8 tablets in 24 hours 12/11/19 20 2019 Inactive atorvastatin 40 mg tablet RxNorm: 554076 1 Tablet(s) Oral every day 11/29/19 20 2020 Inactive quetiapine 100 mg tablet RxNorm: 849589 1 Tablet(s) Oral every night at bedtime 11/28/19 20 2019 Inactive sertraline 100 mg tablet RxNorm: 614947 1 Tablet(s) Oral 11/28/19 20 2019 Inactive omeprazole 20 mg capsule,delayed release RxNorm: 159450 1 Capsule(s) Oral every day 11/20/19 20 2019 Inactive amoxicillin 250 mg capsule RxNorm: 748734 1 Capsule(s) Oral three times a day 11/07/19 20 2019 Inactive multivitamin with iron-mineral tablet RxNorm: 1 Tablet(s) Oral every day 10/29/192021 Inactive cetirizine 10 mg tablet RxNorm: 1813333 1 Tablet(s) PO daily 10/20/19 20 2019 Inactive This refill negates all other refills of this medication. Please do not auto refill Singulair 10 mg tablet RxNorm: 174816 1 Tablet(s) PO daily 10/20/19 20 2019 Inactive This refill negates all other refills of this medication gabapentin 300 mg capsule RxNorm: 997131 1 Capsule(s) PO TID 10/20/19 20 2019 Inactive lisinopril 2.5 mg tablet RxNorm: 481258 1 Tablet(s) PO daily 10/20/19 20 2019 Inactive levothyroxine 50 mcg tablet RxNorm: 774817 1 Tablet(s) PO daily 10/20/19 20 2019 Inactive This refill negates all other refills of this medication fenugreek seed extract 500 mg capsule RxNorm: 1 Capsule(s) Oral three times a day 10/17/19 20 2021 Inactive hydrochlorothiazide 25 mg tablet RxNorm: 992749 1 Tablet(s) Oral every day 10/17/19 20 2019 Inactive Alcohol Prep Pads RxNorm: 955476 1 Patch TOP QAM 10/16/19 20 2020 Inactive loperamide 2 mg tablet RxNorm: 077084 1 Tablet(s) Oral as needed take one [...] 2019 Inactive hydrochlorothiazide 25 mg tablet RxNorm: 035463 1 Tablet(s) Oral every day 09/19/20 19 2019 Inactive Sudafed 12 Hour 120 mg tablet,extended release RxNorm: 2969306 1 Tablet(s) Oral every 12 hours as needed 09/11/20 19 2018 Inactive omeprazole 20 mg capsule,delayed release RxNorm: 841574 1 Capsule(s) Oral every day 09/07/20 19 2019 Inactive Sudafed 12 Hour 120 mg tablet,extended release RxNorm: 8587913 1 Tablet(s) Oral every 12 hours as needed 09/04/20 19 2018 Inactive pantoprazole 40 mg tablet,delayed release RxNorm: 696632 1 Tablet(s) Oral every day 08/24/20 19 2018 Inactive discontinue any other H2Blkr. and PPI albuterol sulfate 2.5 mg/3 mL (0.083 %) solution for nebulization RxNorm: 846002 1 Vial Inhalation every four hours as needed as needed for dyspnea 08/17/20 19 2019 Inactive 60/box. This refill negates all other refills of this medication. Please do not fill early. Please do not auto refill. Symbicort 160 mcg-4.5 mcg/actuation HFA aerosol inhaler RxNorm: 2716734 2 Puff(s) INH BID 08/17/20 19 No Stop Date Active Alcohol Prep Pads RxNorm: 656505 1 Patch TOP QAM 08/17/20 19 2019 Inactive Ventolin HFA 90 mcg/actuation aerosol inhaler RxNorm: 508522 2 Puff(s) INH QID 08/09/20 19 2019 Inactive Please do not fill early. Please do not auto refill. This refill negates all other refills of this medication True Metrix Glucose Test Strip RxNorm: 1 Test Strips Miscellaneous QAM 08/09/20 19 2019 Inactive 100/container atorvastatin 40 mg tablet RxNorm: 341160 1 Tablet(s) Oral every day 07/04/20 19 2019 Inactive levmetamfetamine 50 mg nasal inhaler RxNorm: 1 Unit(s) NASAL Q3-4H Do not use more than every 3 hours or 8 times/24hours 06/26/20 19 2021 Inactive Please do not auto refill. This refill negates all other refills of this medication buspirone 7.5 mg tablet RxNorm: 862894 1 Tablet(s) PO BID 06/26/20 19 2020 Inactive This refill negates all other refills of this medication hydrochlorothiazide 12.5 mg tablet RxNorm: 705315 1 Tablet(s) PO QAM 06/26/20 19 2019 Inactive Ventolin HFA 90 mcg/actuation aerosol inhaler RxNorm: 900202 2 Puff(s) INH QID 06/26/20 19 2018 Inactive Please do not fill early. Please do not auto refill. This refill negates all other refills of this medication Singulair 10 mg tablet RxNorm: 309349 1 Tablet(s) PO daily 06/26/20 19 2019 Inactive This refill negates all other refills of this medication cetirizine 10 mg tablet RxNorm: 1778103 1 Tablet(s) PO daily 06/26/20 19 2019 Inactive This refill negates all other refills of this medication. Please do not auto refill levothyroxine 50 mcg tablet RxNorm: 126935 1 Tablet(s) PO daily 06/26/20 19 2019 Inactive This refill negates all other refills of this medication diclofenac sodium 75 mg tablet,delayed release RxNorm: 450631 1 Tablet(s) PO BID 06/26/20 19 2019 Inactive This refill negates all other refills of this medication ranitidine 150 mg tablet RxNorm: 174894 1 Tablet(s) PO BID 06/26/20 19 2018 Inactive This refill negates all other refills of this medication Calcium 600-D3 Plus (mag-zinc) 600 mg calcium-800 unit-50 mg tablet RxNorm: 1 Tablet(s) PO daily take an additonal tablet for itching. 06/26/20 19 2018 Inactive This refill negates all other refills of this medication albuterol sulfate 2.5 mg/3 mL (0.083 %) solution for nebulization RxNorm: 539321 1 Vial INH QID 06/26/20 19 2018 Inactive 60/box. This refill negates all other refills of this medication. Please do not fill early. Please do not auto refill. lisinopril 2.5 mg tablet RxNorm: 759427 1 Tablet(s) PO daily 06/21/20 19 2019 Inactive gabapentin 300 mg capsule RxNorm: 110250 1 Capsule(s) PO TID 06/21/20 19 2019 Inactive atorvastatin 20 mg tablet RxNorm: 104881 1 Tablet(s) PO QHS 06/07/20 19 2018 Inactive This refill negates all other refills of this medication TRUEplus Lancets 30 gauge RxNorm: 1 Lancets Miscellaneous QAM 05/29/20 19 2018 Inactive 100/box gabapentin 300 mg capsule RxNorm: 591360 1 Capsule(s) PO TID 05/03/20 19 2018 Inactive Flintstones Complete (iron) 18 mg iron chewable tablet RxNorm: 1 Tablet(s) PO daily 04/04/20 19 2021 Inactive This refill negates all other refills of this medication gabapentin 300 mg capsule RxNorm: 506511 1 Capsule(s) PO TID as needed 02/01/20 19 2018 Inactive True Metrix Glucose Test Strip RxNorm: 1 Test Strips Miscellaneous QAM 02/01/20 19 2018 Inactive 100/container Alcohol Prep Pads RxNorm: 461838 1 Patch TOP QAM 02/01/20 19 2018 Inactive TRUEplus Lancets 30 gauge RxNorm: 1 Lancets Miscellaneous QAM 02/01/20 19 2018 Inactive 100/box lisinopril 2.5 mg tablet RxNorm: 670462 1 Tablet(s) PO daily 12/28/19 19 2018 Inactive ranitidine 150 mg tablet RxNorm: 479968 1 Tablet(s) PO BID 10/21/192018 Inactive This refill negates all other refills of this medication albuterol sulfate 2.5 mg/3 mL (0.083 %) solution for nebulization RxNorm: 562825 1 Vial INH QID 10/21/19 19 2018 [...] this medication gabapentin 300 mg capsule RxNorm: 502393 1 Capsule(s) PO TID as needed 10/21/192018 Inactive atorvastatin 20 mg tablet RxNorm: 401025 1 Tablet(s) PO QHS 10/21/19 19 2018 Inactive This refill negates all other refills of this medication trazodone 50 mg tablet RxNorm: 481415 1 Tablet(s) PO QHS 10/21/19 19 2018 Inactive This refill negates all other refills of this medication Ventolin HFA 90 mcg/actuation aerosol inhaler RxNorm: 617249 2 Puff(s) INH QID 10/21/19 2018 Inactive [...] this medication Singulair 10 mg tablet RxNorm: 256954 1 Tablet(s) PO daily 10/21/192018 Inactive This refill negates all other refills of this medication buspirone 7.5 mg tablet RxNorm: 800242 1 Tablet(s) PO BID 10/21/192018 Inactive This refill negates all other refills of this medication diclofenac sodium 75 mg tablet,delayed release RxNorm: 895739 1 Tablet(s) PO BID 10/21/192018 Inactive This refill negates all other refills of this medication hydrochlorothiazide 12.5 mg tablet RxNorm: 644674 1 Tablet(s) PO QAM 10/21/192018 Inactive metoprolol succinate ER 50 mg tablet,extended release 24 hr RxNorm: 288175 1 Tablet(s) PO daily 10/21/192018 Inactive This refill negates all other refills of this medication levothyroxine 50 mcg tablet RxNorm: 769034 1 Tablet(s) PO daily 10/21/192018 Inactive This refill negates all other refills of this medication cetirizine 10 mg tablet RxNorm: 7713440 1 Tablet(s) PO daily 10/21/192018 Inactive This refill negates all other refills of this medication. Please do not auto refill Flintstones Complete (iron) 18 mg iron chewable tablet RxNorm: 1 Tablet(s) PO daily 10/21/192018 Inactive This refill negates all other refills of this medication buspirone 7.5 mg tablet RxNorm: 343415 1 Tablet(s) PO BID 10/12/192018 Inactive cetirizine 10 mg tablet RxNorm: 0192646 1 Tablet(s) PO daily 09/28/20 18 2018 Inactive Guaiasorb DM 10 mg-100 mg/5 mL oral liquid RxNorm: 039571 10 Milliliter(s) PO As needed every 4 hr 09/24/20 18 2018 Inactive Vicks Vaporub 4.7 %-1.2 %-2.6 % topical ointment RxNorm: 5851660 1 Application TOP TID 09/24/20 18 2018 Inactive levmetamfetamine 50 mg nasal inhaler RxNorm: 1 Unit(s) NASAL Q3-4H 09/24/20 18 2017 Inactive sertraline 50 mg tablet RxNorm: 367961 1 Tablet(s) PO daily 09/09/20 18 2018 Inactive Please note dose trazodone 50 mg tablet RxNorm: 820037 1 Tablet(s) PO QHS 09/06/20 18 2018 Inactive sertraline 50 mg tablet RxNorm: 650885 1 Tablet(s) PO daily 09/06/20 18 2017 Inactive amoxicillin 500 mg tablet RxNorm: 585547 1 Tablet(s) PO Q12H 08/31/20 18 2017 Inactive albuterol sulfate 2.5 mg/3 mL (0.083 %) solution for nebulization RxNorm: 682638 1 Vial INH QID 08/10/202018 Inactive 60/box. Please do not fill early. Please do not auto refill. Prozac 10 mg capsule RxNorm: 665768 1 Capsule(s) PO daily 08/09/20 18 2017 Inactive buspirone 7.5 mg tablet RxNorm: 271341 1 Tablet(s) PO BID 08/09/20 18 2018 Inactive gabapentin 300 mg capsule RxNorm: 216508 1 Capsule(s) PO TID as needed 08/01/20 18 2018 Inactive hydrochlorothiazide 12.5 mg tablet RxNorm: 191188 1 Tablet(s) PO QAM 08/01/20 18 2018 Inactive ranitidine 150 mg tablet RxNorm: 841196 1 Tablet(s) PO BID 08/01/20 18 2018 Inactive Macrobid 100 mg capsule RxNorm: 999939 1 Capsule(s) PO Q12H 06/21/20 18 2017 Inactive Singulair 10 mg tablet RxNorm: 606157 1 Tablet(s) PO daily 06/14/20 18 2018 Inactive Ventolin HFA 90 mcg/actuation aerosol inhaler RxNorm: 3396490 2 Puff(s) INH QID 06/14/20 18 2018 Inactive Singulair 10 mg tablet RxNorm: 419053 1 Tablet(s) PO daily 06/14/20 18 2017 Inactive buspirone 7.5 mg tablet RxNorm: 908838 1 Tablet(s) PO BID 06/14/20 18 2017 Inactive Prozac 10 mg capsule RxNorm: 582458 1 Capsule(s) PO daily 06/14/20 18 2017 Inactive Neilmed Pediatric Sinus Rinse Refill packet RxNorm: 1 Unit Dose NASAL PRN 05/31/20 18 2021 Inactive diclofenac sodium 75 mg tablet,delayed release RxNorm: 903971 1 Tablet(s) PO BID 05/31/20 18 2017 Inactive lisinopril 2.5 mg tablet RxNorm: 221028 1 Tablet(s) PO daily 05/31/20 18 2017 Inactive metoprolol succinate ER 50 mg tablet,extended release 24 hr RxNorm: 627993 1 Tablet(s) PO daily 05/31/20 18 2017 Inactive levothyroxine 50 mcg tablet RxNorm: 374819 1 Tablet(s) PO daily 05/31/20 18 2017 Inactive TRUEplus Lancets 30 gauge RxNorm: 1 Lancets Miscellaneous QAM 05/31/20 18 2017 Inactive 100/box Ventolin HFA 90 mcg/actuation aerosol inhaler RxNorm: 077653 2 Puff(s) INH QID 05/31/20 18 2017 Inactive Aleve 220 mg capsule RxNorm: 6796191 1 Capsule(s) PO BID 05/31/20 18 2018 Inactive ranitidine 150 mg tablet RxNorm: 603513 1 Tablet(s) PO BID 05/31/20 18 2017 Inactive gabapentin 300 mg capsule RxNorm: 354251 1 Capsule(s) PO TID as needed 05/31/20 18 2017 Inactive atorvastatin 20 mg tablet RxNorm: 999379 1 Tablet(s) PO QHS 05/31/20 18 2017 Inactive True Metrix Glucose Test Strip RxNorm: 1 Test Strips [facility] 05/31/20 18 2017 Inactive 50/container Calcium 600-D3 Plus 600 mg calcium-800 unit-50 mg tablet RxNorm: 1 Tablet(s) PO daily take an additonal tablet for itching. 05/31/20 18 2017 Inactive hydrochlorothiazide 12.5 mg tablet RxNorm: 663520 1 Tablet(s) PO QAM 05/31/20 18 2017 Inactive Flintstones Complete (iron) 18 mg iron chewable tablet RxNorm: 1 Tablet(s) PO daily 05/31/20 18 2017 Inactive d-mannose oral powder RxNorm: PO 18 2021 Inactive True Metrix Glucose Meter RxNorm: miscellaneous 08/17/20 19 2018 Inactive sertraline 50 mg tablet RxNorm: 488890 1 Tablet(s) PO daily 11/28/19 20 2019 Inactive loperamide 2 mg tablet RxNorm: 354284 oral 09/29/20 19 2018 Inactive Symbicort 160 mcg-4.5 mcg/actuation HFA aerosol inhaler RxNorm: 3478232 2 Puff(s) INH BID 08/17/20 19 2018 Inactive Medication Administered No Medication Administered data Procedures Procedure Codes Date Warren Fany Assessment CPT-4: DSWA 12/01 Urinalysis, dip stick CPT-4: 28544 09/24/2020 Patient Health Questionnaire CPT-4: DPHQ Electrocardiogram CPT-4: 80062 05/14/2020 Tobacco Assessment/Screening CPT-4: TCA Fall Risk Assessment SNOMED CT: 87717510 4 CPT-4: DFRA01/01/2020Functional AssessmentCPT-4: DFA01/01/2020Semmes Fany AssessmentCPT-4: DSWA11/28/2019Patient Health QuestionnaireCPT-4: DPHQ11/28/2019 Warren Fany AssessmentCPT-4: DSWA10/17/2019HypertensionCPT-4: HTN10/17/[address]: 776438273 CPT-4: DFRA09/19/2019Functional AssessmentCPT-4: DFA111/20/2018Urinalysis, dip stickCPT-4: 4338056Tobacco Assessment/ScreeningCPT-4: TCA05/24/2019 Patient Health QuestionnaireCPT-4: DPHQ05/24/2019AHA/REBECCA Classification AssessmentCPT-4: DAHA04/25/2019Controlled Substance ReportCPT-4: CTRSU04/25/2019 Urinalysis, dip stickCPT-4: 5203812Urinalysis, dip stickCPT-4: 59438 03/28/20197501W1D-RspaxorrirrbjezSRP-2: 58661SpmozvqG5Y-VrnufbslsjerazpNHW-4: 63435 IbknoxhI1P-GrcuuhputmjeohzXYJ-1: 21161OqqzgtgK8J-UrgmlgpaxkxqpweBYI-0: 86137 GlyyzpfK8J-GwqetyzbbruhvirFNA-1: 93504AsilylwX0R-GunkgpscowkldwsPUM-5: [address]: 356474923 CPT-4: E83Dhxpagh Reason For Visit No Reason For Visit data Plan of Care Planned Activity Notes Codes Status Date Referral: Pending Gynecology Referral Informatio n Referral ProcessedReferral: Pending Pulmonology Referral InformationReferralProcessed Referral: Pending Psychiatry Referral InformationReferralInitiatedReferral: Pending Respiratory Services Referral InformationReferralInitiatedReferral: Pending Ophthalmology Referral InformationReferralInitiatedReferral: [facility] WPtel: [address] [place], [place] [phone] [employer] placed a call out to the patient to notify her that it has been recommended that she be seenby a urologist. Patient agreed to be seen, does not have a provider of choice and no transportationissues. [employer] faxed referral and clinical notes to [facility] in [place], [place] near the patient's home. Patient to [...] seen and prefers a provider in the [place] or [place] area. [employer] placed a call out to everyone listed in the area and the only location that was able to accept the patient's insurance was [address] [phone] and spoke with Maylin. Maylin asked that the patient's referral, face sheet and visit notes be faxed to . [employer] faxed over requested documents. Patient appointment confirmation letter generated and mailed to her home address. Patient to call to schedule an appointment.ProcessedReferral: [facility] WPtel: [address] [place] [address] [place], [place] [id number] USPatient notified that it has been advised that she be seen by Neurology. Patient agreed to be seen and prefers to be seen by a provider in the [place], [place] area. Patient denies any concerns with transportation, and prefers to schedule her own appointment. [employer] [facility] and spoke with Neeraj P: who confirmed that their office is able to acceptnew patients and the patient's insurance. After confirming the providers fax number, auto service writer faxed over the patient's referral, [...]
--- OUTSIDE RECORDS SUMMARY | 2023-12-07 02:15 | XMS_ITS | CCD ---
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 Financial Services Associate Name Role Phone Palomo KING, Anna Primary Care Provider Unav ailable Unavailable Chronic Care Management Unavaila ble Summary Purpose DataExchange Insurance Providers Payer name Policy type / Coverage type Covered green party ID Effective Begin Date Effective End Date SUKI MAYO [id number] Unknown Unknown Family history Mother Diagnosis Age [...] 05/31/2018 Education level Unknown Some High School 10th05/31/20189865TjqzcurhvmThrjrlbNctgganeke24/29/2018Tobacco historySNOMED CT: 576154856Qrl never smoked or chewed uxfkedc9705/31/2018Alcohol historySNOMED CT: 021825904Yrqgb drinks vluvdde7005/31/2018Has the patient ever used illegal drugs? UnknownHas never used illegal drugs05/31/2018DNR Order/ Advanced Directive UnknownFull Code05/31/2018 Allergies, Adverse Reactions, Alerts Substance Reaction Codes Entered Date Inactivated Date Status *No known food allergies Gppgkvl6709/06/2018No Inactive DateActiveMethylprednisolonehivesRxNorm: 6902 09/06/2018No Inactive DateActive Problems [...] examinationICD-10: Z01.810 ICD-9: V72.8106InactiveHeadacheICD-10: R51 ICD-9: 784.001InactiveOther senior care (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ICD-10: Z79.899 ICD-9: V58.6907InactiveType [...] Fill Instructions lisinopril 2.5 mg tablet RxNorm: 507442 TAKE 1 TABLET BY MOUTH DAILY 01/06/202020 Inactive gabapentin 300 mg capsule RxNorm: 874556 TAKE 1 CAPSULE BY MOUTH THREE TIMES A DAY 01/06/20 21 2020 Inactive Singulair 10 mg tablet RxNorm: 128332 TAKE (1) TABLET BY MOUTH DAILY 01/06/202020 Inactive metformin 1,000 mg tablet RxNorm: 962825 1 Tablet(s) Oral two times a day 01/06/202020 Inactive atorvastatin 40 mg tablet RxNorm: 725782 1 Tablet(s) Oral every day 12/06/19 21 2020 Inactive omeprazole 20 mg capsule,delayed release RxNorm: 417804 1 Capsule(s) Oral every evening 11/24/19 21 2020 Inactive famotidine 10 mg tablet RxNorm: 090816 1 Tablet(s) Oral every morning 11/24/19 21 2020 Inactive Alcohol Prep Pads RxNorm: 667942 USE EACH MORNING 10/14/19 21 2020 Inactive omeprazole 20 mg capsule,delayed release RxNorm: 854363 1 Capsule(s) Oral two times a day 10/13/19 21 2021 Inactive omeprazole 20 mg capsule,delayed release RxNorm: 161728 TAKE 1 CAPSULE BY MOUTH EVERY DAY 10/08/192021 Inactive Macrobid 100 mg capsule RxNorm: 951325 1 Capsule(s) Oral every 12 hours with food 10/01/202020 Inactive omeprazole 20 mg capsule,delayed release RxNorm: 990242 1 Capsule(s) Oral two times a day 09/24/20 20 2021 Inactive metformin 1,000 mg tablet RxNorm: 445927 1 Tablet(s) Oral two times a day 08/19/20 20 2020 Inactive start on September 11, 2020 metformin 500 mg tablet RxNorm: 712792 1 Tablet(s) Oral two times a day take with 500mg to equal 1000mg 08/19/20 20 2019 Inactive cetirizine 10 mg tablet RxNorm: 0820384 TAKE (1) TABLET BY MOUTH DAILY 07/11/20 20 2020 Inactive gabapentin 300 mg capsule RxNorm: 733413 TAKE 1 CAPSULE BY MOUTH THREE TIMES DAILY 07/11/20 20 2020 Inactive metformin 500 mg tablet RxNorm: 449046 1 Tablet(s) Oral two times a day 07/08/20 20 2019 Inactive loperamide 2 mg tablet RxNorm: 518867 1 Tablet(s) Oral as needed take one tablet after each loose stool, maximum of 8 tablets in 24 hours 06/24/20 20 2021 Inactive Sudafed 12 Hour 120 mg tablet,extended release RxNorm: 3769629 TAKE 1 TABLET BY MOUTH EVERY 12 HOURS NEEDED 06/11/20 20 2019 Inactive hydrochlorothiazide 25 mg tablet RxNorm: 573119 TAKE (1) TABLET BY MOUTH EVERY DAY 06/11/20 20 2019 Inactive omeprazole 20 mg capsule,delayed release RxNorm: 964305 TAKE 1 CAPSULE BY MOUTH EVERY DAY 05/14/20 20 2020 Inactive metformin 500 mg tablet RxNorm: 631362 1 Tablet(s) Oral every day 05/12/20 20 2019 Inactive True Metrix Glucose Test Strip RxNorm: 1 Test Strips Miscellaneous two times a day as needed 04/17/20 No Stop Date Active metformin 500 mg tablet RxNorm: 442492 1 Tablet(s) Oral every day 04/17/20 20 2019 Inactive diclofenac sodium 75 mg tablet,delayed release RxNorm: 042198 1 Tablet(s) PO BID 04/14/20 20 2021 Inactive This refill negates all other refills of this medication Sudafed 12 Hour 120 mg tablet,extended release RxNorm: 4091735 TAKE 1 TABLET BY MOUTH EVERY 12 HOURS NEEDED 03/14/20 20 2019 Inactive True Metrix Glucose Test Strip RxNorm: 1 Test Strips Miscellaneous every morning 03/13/20 20 2019 Inactive 100/container True Metrix Glucose Test Strip RxNorm: 1 Test Strips Miscellaneous QA 02/22/20 20 2019 Inactive 100/container loperamide 2 mg tablet RxNorm: 948332 1 Tablet(s) Oral as needed take one tablet after each loose stool, maximum of 8 tablets in 24 hours 02/22/20 20 2019 Inactive levothyroxine 50 mcg tablet RxNorm: 617892 1 Tablet(s) PO daily 01/17/20 20 2020 Inactive cetirizine 10 mg tablet RxNorm: 5273255 1 Tablet(s) PO daily 01/17/20 20 2019 Inactive loperamide 2 mg tablet RxNorm: 809560 1 Tablet(s) Oral as needed take one tablet after each loose stool, maximum of 8 tablets in 24 hours 01/17/2019 02/21/ 2020 Inactive quetiapine 100 mg tablet RxNorm: 046700 1 Tablet(s) Oral every night at bedtime 01/17/20 20 2019 Inactive gabapentin 300 mg capsule RxNorm: 565361 1 Capsule(s) PO TID 01/17/20 20 2019 Inactive levothyroxine 50 mcg tablet RxNorm: 962027 1 Tablet(s) PO daily 01/15/20 20 2019 Inactive lisinopril 2.5 mg tablet RxNorm: 264199 1 Tablet(s) PO daily 01/15/20 20 2020 Inactive gabapentin 300 mg capsule RxNorm: 647763 1 Capsule(s) PO TID 01/15/20 20 2019 Inactive cetirizine 10 mg tablet RxNorm: 2854545 1 Tablet(s) PO daily 01/15/20 20 2019 Inactive Singulair 10 mg tablet RxNorm: 790643 1 Tablet(s) PO daily 01/15/20 20 2020 Inactive gentamicin 0.3 % eye drops RxNorm: 656650 1 Drop(s) ophthalmic (eye) four times a day 12/29/19 20 2019 Inactive gentamicin 0.3 % eye drops RxNorm: 925589 1 Drop(s) ophthalmic (eye) four times a day 12/29/19 20 2019 Inactive gentamicin 0.3 % eye drops RxNorm: 116180 1 Drop(s) ophthalmic (eye) four times a day 12/29/19 20 2019 Inactive hydrochlorothiazide 25 mg tablet RxNorm: 431918 1 Tablet(s) Oral every day 12/21/19 20 2019 Inactive Sudafed 12 Hour 120 mg tablet,extended release RxNorm: 4592745 TAKE (1) TABLET BY MOUTH EVERY 12 HOURS NEEDED 12/21/19 20 2019 Inactive loperamide 2 mg tablet RxNorm: 442068 1 Tablet(s) Oral as needed take one tablet after each loose stool, maximum of 8 tablets in 24 hours 12/11/19 20 2019 Inactive loperamide 2 mg tablet RxNorm: 769906 1 Tablet(s) Oral as needed take one tablet after each loose stool, maximum of 8 tablets in 24 hours 12/11/19 20 2019 Inactive atorvastatin 40 mg tablet RxNorm: 285297 1 Tablet(s) Oral every day 11/29/19 20 2020 Inactive quetiapine 100 mg tablet RxNorm: 121786 1 Tablet(s) Oral every night at bedtime 11/28/19 20 2019 Inactive sertraline 100 mg tablet RxNorm: 211266 1 Tablet(s) Oral 11/28/19 20 2019 Inactive omeprazole 20 mg capsule,delayed release RxNorm: 043430 1 Capsule(s) Oral every day 11/20/19 20 2019 Inactive amoxicillin 250 mg capsule RxNorm: 305355 1 Capsule(s) Oral three times a day 11/07/19 20 2019 Inactive multivitamin with iron-mineral tablet RxNorm: 1 Tablet(s) Oral every day 10/29/192021 Inactive cetirizine 10 mg tablet RxNorm: 4776031 1 Tablet(s) PO daily 10/20/19 20 2019 Inactive This refill negates all other refills of this medication. Please do not auto refill Singulair 10 mg tablet RxNorm: 496650 1 Tablet(s) PO daily 10/20/19 20 2019 Inactive This refill negates all other refills of this medication gabapentin 300 mg capsule RxNorm: 586178 1 Capsule(s) PO TID 10/20/19 20 2019 Inactive lisinopril 2.5 mg tablet RxNorm: 516982 1 Tablet(s) PO daily 10/20/19 20 2019 Inactive levothyroxine 50 mcg tablet RxNorm: 722728 1 Tablet(s) PO daily 10/20/19 20 2019 Inactive This refill negates all other refills of this medication fenugreek seed extract 500 mg capsule RxNorm: 1 Capsule(s) Oral three times a day 10/17/19 20 2021 Inactive hydrochlorothiazide 25 mg tablet RxNorm: 610729 1 Tablet(s) Oral every day 10/17/19 20 2019 Inactive Alcohol Prep Pads RxNorm: 512259 1 Patch TOP QAM 10/16/19 20 2020 Inactive loperamide 2 mg tablet RxNorm: 402629 1 Tablet(s) Oral as needed take one [...] 2019 Inactive hydrochlorothiazide 25 mg tablet RxNorm: 151350 1 Tablet(s) Oral every day 09/19/20 19 2019 Inactive Sudafed 12 Hour 120 mg tablet,extended release RxNorm: 3050056 1 Tablet(s) Oral every 12 hours as needed 09/11/20 19 2018 Inactive omeprazole 20 mg capsule,delayed release RxNorm: 863071 1 Capsule(s) Oral every day 09/07/20 19 2019 Inactive Sudafed 12 Hour 120 mg tablet,extended release RxNorm: 3021580 1 Tablet(s) Oral every 12 hours as needed 09/04/20 19 2018 Inactive pantoprazole 40 mg tablet,delayed release RxNorm: 062667 1 Tablet(s) Oral every day 08/24/20 19 2018 Inactive discontinue any other H2Blkr. and PPI albuterol sulfate 2.5 mg/3 mL (0.083 %) solution for nebulization RxNorm: 595948 1 Vial Inhalation every four hours as needed as needed for dyspnea 08/17/20 19 2019 Inactive 60/box. This refill negates all other refills of this medication. Please do not fill early. Please do not auto refill. Symbicort 160 mcg-4.5 mcg/actuation HFA aerosol inhaler RxNorm: 5269263 2 Puff(s) INH BID 08/17/20 19 No Stop Date Active Alcohol Prep Pads RxNorm: 644798 1 Patch TOP QAM 08/17/20 19 2019 Inactive Ventolin HFA 90 mcg/actuation aerosol inhaler RxNorm: 078461 2 Puff(s) INH QID 08/09/20 19 2019 Inactive Please do not fill early. Please do not auto refill. This refill negates all other refills of this medication True Metrix Glucose Test Strip RxNorm: 1 Test Strips Miscellaneous QAM 08/09/20 19 2019 Inactive 100/container atorvastatin 40 mg tablet RxNorm: 910637 1 Tablet(s) Oral every day 07/04/20 19 2019 Inactive levmetamfetamine 50 mg nasal inhaler RxNorm: 1 Unit(s) NASAL Q3-4H Do not use more than every 3 hours or 8 times/24hours 06/26/20 19 2021 Inactive Please do not auto refill. This refill negates all other refills of this medication buspirone 7.5 mg tablet RxNorm: 544167 1 Tablet(s) PO BID 06/26/20 19 2020 Inactive This refill negates all other refills of this medication hydrochlorothiazide 12.5 mg tablet RxNorm: 692528 1 Tablet(s) PO QAM 06/26/20 19 2019 Inactive Ventolin HFA 90 mcg/actuation aerosol inhaler RxNorm: 244455 2 Puff(s) INH QID 06/26/20 19 2018 Inactive Please do not fill early. Please do not auto refill. This refill negates all other refills of this medication Singulair 10 mg tablet RxNorm: 864015 1 Tablet(s) PO daily 06/26/20 19 2019 Inactive This refill negates all other refills of this medication cetirizine 10 mg tablet RxNorm: 4138893 1 Tablet(s) PO daily 06/26/20 19 2019 Inactive This refill negates all other refills of this medication. Please do not auto refill levothyroxine 50 mcg tablet RxNorm: 293416 1 Tablet(s) PO daily 06/26/20 19 2019 Inactive This refill negates all other refills of this medication diclofenac sodium 75 mg tablet,delayed release RxNorm: 950505 1 Tablet(s) PO BID 06/26/20 19 2019 Inactive This refill negates all other refills of this medication ranitidine 150 mg tablet RxNorm: 194817 1 Tablet(s) PO BID 06/26/20 19 2018 Inactive This refill negates all other refills of this medication Calcium 600-D3 Plus (mag-zinc) 600 mg calcium-800 unit-50 mg tablet RxNorm: 1 Tablet(s) PO daily take an additonal tablet for itching. 06/26/20 19 2018 Inactive This refill negates all other refills of this medication albuterol sulfate 2.5 mg/3 mL (0.083 %) solution for nebulization RxNorm: 893047 1 Vial INH QID 06/26/20 19 2018 Inactive 60/box. This refill negates all other refills of this medication. Please do not fill early. Please do not auto refill. lisinopril 2.5 mg tablet RxNorm: 599095 1 Tablet(s) PO daily 06/21/20 19 2019 Inactive gabapentin 300 mg capsule RxNorm: 041795 1 Capsule(s) PO TID 06/21/20 19 2019 Inactive atorvastatin 20 mg tablet RxNorm: 198557 1 Tablet(s) PO QHS 06/07/20 19 2018 Inactive This refill negates all other refills of this medication TRUEplus Lancets 30 gauge RxNorm: 1 Lancets Miscellaneous QAM 05/29/20 19 2018 Inactive 100/box gabapentin 300 mg capsule RxNorm: 626927 1 Capsule(s) PO TID 05/03/20 19 2018 Inactive Flintstones Complete (iron) 18 mg iron chewable tablet RxNorm: 1 Tablet(s) PO daily 04/04/20 19 2021 Inactive This refill negates all other refills of this medication gabapentin 300 mg capsule RxNorm: 718500 1 Capsule(s) PO TID as needed 02/01/20 19 2018 Inactive True Metrix Glucose Test Strip RxNorm: 1 Test Strips Miscellaneous QAM 02/01/20 19 2018 Inactive 100/container Alcohol Prep Pads RxNorm: 609450 1 Patch TOP QAM 02/01/20 19 2018 Inactive TRUEplus Lancets 30 gauge RxNorm: 1 Lancets Miscellaneous QAM 02/01/20 19 2018 Inactive 100/box lisinopril 2.5 mg tablet RxNorm: 924966 1 Tablet(s) PO daily 12/28/19 19 2018 Inactive ranitidine 150 mg tablet RxNorm: 734782 1 Tablet(s) PO BID 10/21/192018 Inactive This refill negates all other refills of this medication albuterol sulfate 2.5 mg/3 mL (0.083 %) solution for nebulization RxNorm: 217707 1 Vial INH QID 10/21/19 19 2018 [...] this medication gabapentin 300 mg capsule RxNorm: 757917 1 Capsule(s) PO TID as needed 10/21/192018 Inactive atorvastatin 20 mg tablet RxNorm: 030425 1 Tablet(s) PO QHS 10/21/19 19 2018 Inactive This refill negates all other refills of this medication trazodone 50 mg tablet RxNorm: 957884 1 Tablet(s) PO QHS 10/21/19 19 2018 Inactive This refill negates all other refills of this medication Ventolin HFA 90 mcg/actuation aerosol inhaler RxNorm: 443811 2 Puff(s) INH QID 10/21/19 2018 Inactive [...] this medication Singulair 10 mg tablet RxNorm: 094021 1 Tablet(s) PO daily 10/21/192018 Inactive This refill negates all other refills of this medication buspirone 7.5 mg tablet RxNorm: 654284 1 Tablet(s) PO BID 10/21/192018 Inactive This refill negates all other refills of this medication diclofenac sodium 75 mg tablet,delayed release RxNorm: 927623 1 Tablet(s) PO BID 10/21/192018 Inactive This refill negates all other refills of this medication hydrochlorothiazide 12.5 mg tablet RxNorm: 818092 1 Tablet(s) PO QAM 10/21/192018 Inactive metoprolol succinate ER 50 mg tablet,extended release 24 hr RxNorm: 224786 1 Tablet(s) PO daily 10/21/192018 Inactive This refill negates all other refills of this medication levothyroxine 50 mcg tablet RxNorm: 825129 1 Tablet(s) PO daily 10/21/192018 Inactive This refill negates all other refills of this medication cetirizine 10 mg tablet RxNorm: 9757010 1 Tablet(s) PO daily 10/21/192018 Inactive This refill negates all other refills of this medication. Please do not auto refill Flintstones Complete (iron) 18 mg iron chewable tablet RxNorm: 1 Tablet(s) PO daily 10/21/192018 Inactive This refill negates all other refills of this medication buspirone 7.5 mg tablet RxNorm: 614564 1 Tablet(s) PO BID 10/12/192018 Inactive cetirizine 10 mg tablet RxNorm: 0795093 1 Tablet(s) PO daily 09/28/20 18 2018 Inactive Guaiasorb DM 10 mg-100 mg/5 mL oral liquid RxNorm: 565122 10 Milliliter(s) PO As needed every 4 hr 09/24/20 18 2018 Inactive Vicks Vaporub 4.7 %-1.2 %-2.6 % topical ointment RxNorm: 1139120 1 Application TOP TID 09/24/20 18 2018 Inactive levmetamfetamine 50 mg nasal inhaler RxNorm: 1 Unit(s) NASAL Q3-4H 09/24/20 18 2017 Inactive sertraline 50 mg tablet RxNorm: 779270 1 Tablet(s) PO daily 09/09/20 18 2018 Inactive Please note dose trazodone 50 mg tablet RxNorm: 172610 1 Tablet(s) PO QHS 09/06/20 18 2018 Inactive sertraline 50 mg tablet RxNorm: 952775 1 Tablet(s) PO daily 09/06/20 18 2017 Inactive amoxicillin 500 mg tablet RxNorm: 855298 1 Tablet(s) PO Q12H 08/31/20 18 2017 Inactive albuterol sulfate 2.5 mg/3 mL (0.083 %) solution for nebulization RxNorm: 925940 1 Vial INH QID 08/10/202018 Inactive 60/box. Please do not fill early. Please do not auto refill. Prozac 10 mg capsule RxNorm: 145389 1 Capsule(s) PO daily 08/09/20 18 2017 Inactive buspirone 7.5 mg tablet RxNorm: 900053 1 Tablet(s) PO BID 08/09/20 18 2018 Inactive gabapentin 300 mg capsule RxNorm: 609548 1 Capsule(s) PO TID as needed 08/01/20 18 2018 Inactive hydrochlorothiazide 12.5 mg tablet RxNorm: 220127 1 Tablet(s) PO QAM 08/01/20 18 2018 Inactive ranitidine 150 mg tablet RxNorm: 596573 1 Tablet(s) PO BID 08/01/20 18 2018 Inactive Macrobid 100 mg capsule RxNorm: 392317 1 Capsule(s) PO Q12H 06/21/20 18 2017 Inactive Singulair 10 mg tablet RxNorm: 889801 1 Tablet(s) PO daily 06/14/20 18 2018 Inactive Ventolin HFA 90 mcg/actuation aerosol inhaler RxNorm: 1191717 2 Puff(s) INH QID 06/14/20 18 2018 Inactive Singulair 10 mg tablet RxNorm: 110744 1 Tablet(s) PO daily 06/14/20 18 2017 Inactive buspirone 7.5 mg tablet RxNorm: 632558 1 Tablet(s) PO BID 06/14/20 18 2017 Inactive Prozac 10 mg capsule RxNorm: 426640 1 Capsule(s) PO daily 06/14/20 18 2017 Inactive Neilmed Pediatric Sinus Rinse Refill packet RxNorm: 1 Unit Dose NASAL PRN 05/31/20 18 2021 Inactive diclofenac sodium 75 mg tablet,delayed release RxNorm: 629643 1 Tablet(s) PO BID 05/31/20 18 2017 Inactive lisinopril 2.5 mg tablet RxNorm: 136266 1 Tablet(s) PO daily 05/31/20 18 2017 Inactive metoprolol succinate ER 50 mg tablet,extended release 24 hr RxNorm: 881982 1 Tablet(s) PO daily 05/31/20 18 2017 Inactive levothyroxine 50 mcg tablet RxNorm: 783583 1 Tablet(s) PO daily 05/31/20 18 2017 Inactive TRUEplus Lancets 30 gauge RxNorm: 1 Lancets Miscellaneous QAM 05/31/20 18 2017 Inactive 100/box Ventolin HFA 90 mcg/actuation aerosol inhaler RxNorm: 977139 2 Puff(s) INH QID 05/31/20 18 2017 Inactive Aleve 220 mg capsule RxNorm: 1452421 1 Capsule(s) PO BID 05/31/20 18 2018 Inactive ranitidine 150 mg tablet RxNorm: 993083 1 Tablet(s) PO BID 05/31/20 18 2017 Inactive gabapentin 300 mg capsule RxNorm: 131981 1 Capsule(s) PO TID as needed 05/31/20 18 2017 Inactive atorvastatin 20 mg tablet RxNorm: 562858 1 Tablet(s) PO QHS 05/31/20 18 2017 Inactive True Metrix Glucose Test Strip RxNorm: 1 Test Strips [facility] 05/31/20 18 2017 Inactive 50/container Calcium 600-D3 Plus 600 mg calcium-800 unit-50 mg tablet RxNorm: 1 Tablet(s) PO daily take an additonal tablet for itching. 05/31/20 18 2017 Inactive hydrochlorothiazide 12.5 mg tablet RxNorm: 128616 1 Tablet(s) PO QAM 05/31/20 18 2017 Inactive Flintstones Complete (iron) 18 mg iron chewable tablet RxNorm: 1 Tablet(s) PO daily 05/31/20 18 2017 Inactive d-mannose oral powder RxNorm: PO 18 2021 Inactive True Metrix Glucose Meter RxNorm: miscellaneous 08/17/20 19 2018 Inactive sertraline 50 mg tablet RxNorm: 492945 1 Tablet(s) PO daily 11/28/19 20 2019 Inactive loperamide 2 mg tablet RxNorm: 052188 oral 09/29/20 19 2018 Inactive Symbicort 160 mcg-4.5 mcg/actuation HFA aerosol inhaler RxNorm: 0474153 2 Puff(s) INH BID 08/17/20 19 2018 Inactive Medication Administered No Medication Administered data Procedures Procedure Codes Date [place] Assessment CPT-4: DSWA 12/01 Urinalysis, dip stick CPT-4: 96786 09/24/2020 Patient Health Questionnaire CPT-4: DPHQ Electrocardiogram CPT-4: 39915 05/14/2020 Tobacco Assessment/Screening CPT-4: TCA Fall Risk Assessment SNOMED CT: 08173300 4 CPT-4: DFRA01/01/2020Functional AssessmentCPT-4: DFA01/01/2020[place] Fany AssessmentCPT-4: DSWA11/28/2019Patient Health QuestionnaireCPT-4: DPHQ11/28/2019 [place] Fany AssessmentCPT-4: DSWA10/17/2019HypertensionCPT-4: HTN10/17/[address]: 044656755 CPT-4: DFRA09/19/2019Functional AssessmentCPT-4: DFA111/20/2018Urinalysis, dip stickCPT-4: 6524685Tobacco Assessment/ScreeningCPT-4: TCA05/24/2019 Patient Health QuestionnaireCPT-4: DPHQ05/24/2019AHA/REBECCA Classification AssessmentCPT-4: DAHA04/25/2019Controlled Substance ReportCPT-4: CTRSU04/25/2019 Urinalysis, dip stickCPT-4: 5618196Urinalysis, dip stickCPT-4: 72160 03/28/20194293N3M-IbujylvoooimlweCMS-6: 44606GizdkdpJ8M-YyilxmxdraxonaaEZF-5: 99807 BfsjnvvJ4F-UeuthlnuhrbnqiyHKK-0: 56736FnmtgpvA9W-EwegmkrmahhbakmKTG-7: 69138 ZlhqluaT0Y-YplpbttmndnvlmeCXA-6: 63751SkmzheuK2Y-KncgigjyjhpuxyxAZU-6: [address]: 622724977 CPT-4: J35Sokmygv Reason For Visit No Reason For Visit data Plan of Care Planned Activity Notes Codes Status Date Referral: Pending Gynecology Referral Informatio n Referral ProcessedReferral: Pending Pulmonology Referral InformationReferralProcessed Referral: Pending Psychiatry Referral InformationReferralInitiatedReferral: Pending Respiratory Services Referral InformationReferralInitiatedReferral: Pending Ophthalmology Referral InformationReferralInitiatedReferral: [facility] WPtel: [address] [place], [place] [id number] USWriter placed a call out to the patient to notify her that it has been recommended that she be seenby a urologist. Patient agreed to be seen, does not have a provider of choice and no transportationissues. Donor Technician faxed referral and clinical notes to [facility] in [place], [place] near the patient's home. Patient to [...] seen and prefers a provider in the [place] or [place] area. Donor Technician placed a call out to everyone listed in the area and the only location that was able to accept the patient's insurance was [address] [address] and spoke with Maylin. Maylin asked that the patient's referral, face sheet and visit notes be faxed to . Donor Technician faxed over requested documents. Patient appointment confirmation letter generated and mailed to her home address. Patient to call to schedule an appointment.ProcessedReferral: [facility] WPtel: [address] [place] [address] [place], [place] [id number] USPatient notified that it has been advised that she be seen by Neurology. Patient agreed to be seen and prefers to be seen by a provider in the [place], [place] area. Patient denies any concerns with transportation, and prefers to schedule her own appointment. Donor Technician [facility] [...]
--- OUTSIDE RECORDS SUMMARY | 2023-12-07 02:15 | XMS_ITS | CCD ---
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 Name Role Phone Anna Culver NP Primary Care Provider Unav ailable Unavailable Chronic Care Management Unavaila ble Summary Purpose DataExchange Insurance Providers Payer name Policy type / Coverage type Covered green party ID Effective Begin Date Effective End Date SUKI MAYO [id number] Unknown Unknown Family history Mother Diagnosis Age [...] 05/31/2018 Education level Unknown Some High School 10th05/31/20185007FzznwzjnyfPkevoljQnsudtponz97/29/2018Tobacco historySNOMED CT: 312792726Gxj never smoked or chewed dfpdqoe5505/31/2018Alcohol historySNOMED CT: 258323274Gcwxl drinks fcemopz0605/31/2018Has the patient ever used illegal drugs? UnknownHas never used illegal drugs05/31/2018DNR Order/ Advanced Directive UnknownFull Code05/31/2018 Allergies, Adverse Reactions, Alerts Substance Reaction Codes Entered Date Inactivated Date Status OxyContin itch, RxNorm: 280485 01/13/2021 No Inactive Da te Active *No known food allergies Nbygbpr6809/06/2018No Inactive DateActiveMethylprednisolonehivesRxNorm: 6902 09/06/2018No Inactive DateActive Problems Condition Codes Effective Dates Condition St atus (Z00.01-V70.0) Encounter for general adult medical examination with abnormal findings ICD-10: Z00.01 ICD-9: V70.004/1Active(Z13.31-V79.0) Encounter for screening for depressionICD-10: Z13.31 ICD-9: V79.004/ctiveChronic kidney disease, stage 2 (mild)ICD-10: N18.2 ICD-9: 585.201/1ActiveHistory of bladder surgeryICD-10: Z98.890 ICD-9: V45.8904/ctiveHypertensive heart disease with heart failureICD- 10: I11.0 ICD-9: 402.9107/ActiveType 2 diabetes mellitus with peripheral neuropathy ICD-10: E11.42 ICD-9: 250.6002/ActiveUrinary retention with incomplete bladder emptying ICD-10: R33.9 ICD-9: 788.2104/1ActiveEncounter for immunizationICD-10: Z23 ICD-9: V04.8109/06/2020InactiveEssential (primary) hypertensionICD-10: I10 ICD-9: 401.901/10/2018InactiveAnorexiaICD-10: R63.0 ICD-9: 783.003/1ActiveObstructive sleep apnea (adult) (pediatric)ICD-10: G47.33 ICD-9: 327.2309/ActiveApnea, not elsewhere classifiedICD-10: R06.81 ICD-9: 786.0305/10/2018InactiveChest pain, [...] T23.191D ICD-9: V58.8902/1ResolvedUrinary tract infectionICD-10: N39.0 ICD-9: 599.012ResolvedGERD (gastroesophageal reflux disease)ICD-10: K21.9 ICD-9: 530.8112ActiveAdjustment disorder with mixed anxiety and depressed moodICD-10: F43.23 ICD-9: 309.2812ActivePolyneuropathy, unspecifiedICD-10: G62.9 ICD-9: 356.908ActiveEncounter for screening, unspecifiedICD-10: [...] SeenICD-10: UXZ.01 ICD-9: XZ0.107/ActiveDyspnea, unspecifiedICD-10: R06.00 ICD-9: 786.0905ActivePost-traumatic stress disorder, unspecifiedICD-10: F43.10 ICD-9: 309.8112ActiveAbnormal electrocardiogram [ECG] [EKG]ICD-10: R94.31 ICD-9: 794.3108ActiveEdema, unspecifiedICD-10: R60.9 ICD-9: 782.310ActiveLong term (current) use of non-steroidal anti- inflammatories (NSAID)ICD-10: Z79.1 ICD-9: V58.6409Active Medications Medication Codes Instructions Start Date Stop Date Status Fill Instructions metformin 500 mg tablet RxNorm: 949458 1 Tablet(s) Oral two times a day take with 500mg to equal 1000mg 01/14/20 21 2020 Inactive gabapentin 300 mg capsule RxNorm: 603134 TAKE 1 CAPSULE BY MOUTH THREE TIMES A DAY 01/14/20 21 2020 Inactive gabapentin 300 mg capsule RxNorm: 491513 TAKE 1 CAPSULE BY MOUTH THREE TIMES A DAY 01/06/20 21 2020 Inactive lisinopril 2.5 mg tablet RxNorm: 424732 TAKE 1 TABLET BY MOUTH DAILY 01/06/20 21 2020 Inactive Singulair 10 mg tablet RxNorm: 990818 TAKE (1) TABLET BY MOUTH DAILY 01/06/20 21 2020 Inactive metformin 1,000 mg tablet RxNorm: 896208 1 Tablet(s) Oral two times a day 01/06/20 21 2020 Inactive atorvastatin 40 mg tablet RxNorm: 482828 1 Tablet(s) Oral every day 12/06/19 21 2020 Inactive omeprazole 20 mg capsule,delayed release RxNorm: 192311 1 Capsule(s) Oral every evening 11/24/19 21 2020 Inactive famotidine 10 mg tablet RxNorm: 587825 1 Tablet(s) Oral every morning 11/24/19 21 2020 Inactive Alcohol Prep Pads RxNorm: 744767 USE EACH MORNING 10/14/19 21 2020 Inactive omeprazole 20 mg capsule,delayed release RxNorm: 433661 1 Capsule(s) Oral two times a day 10/13/19 21 2021 Inactive omeprazole 20 mg capsule,delayed release RxNorm: 727828 TAKE 1 CAPSULE BY MOUTH EVERY DAY 10/08/19 21 2021 Inactive Macrobid 100 mg capsule RxNorm: 053328 1 Capsule(s) Oral every 12 hours with food 10/01/20 20 2020 Inactive omeprazole 20 mg capsule,delayed release RxNorm: 575845 1 Capsule(s) Oral two times a day 09/24/20 20 2021 Inactive metformin 1,000 mg tablet RxNorm: 251226 1 Tablet(s) Oral two times a day 08/19/20 20 2020 Inactive start on September 11, 2020 metformin 500 mg tablet RxNorm: 632916 1 Tablet(s) Oral two times a day take with 500mg to equal 1000mg 08/19/20 20 2019 Inactive gabapentin 300 mg capsule RxNorm: 640013 TAKE 1 CAPSULE BY MOUTH THREE TIMES DAILY 07/11/20 20 2020 Inactive cetirizine 10 mg tablet RxNorm: 1009201 TAKE (1) TABLET BY MOUTH DAILY 07/11/20 20 2020 Inactive metformin 500 mg tablet RxNorm: 898877 1 Tablet(s) Oral two times a day 07/08/20 20 2019 Inactive loperamide 2 mg tablet RxNorm: 377417 1 Tablet(s) Oral as needed take one tablet after each loose stool, maximum of 8 tablets in 24 hours 06/24/20 20 2021 Inactive Sudafed 12 Hour 120 mg tablet,extended release RxNorm: 3268249 TAKE 1 TABLET BY MOUTH EVERY 12 HOURS NEEDED 06/11/20 20 2019 Inactive hydrochlorothiazide 25 mg tablet RxNorm: 358475 TAKE (1) TABLET BY MOUTH EVERY DAY 06/11/20 20 2019 Inactive omeprazole 20 mg capsule,delayed release RxNorm: 147602 TAKE 1 CAPSULE BY MOUTH EVERY DAY 05/14/202020 Inactive metformin 500 mg tablet RxNorm: 523613 1 Tablet(s) Oral every day 05/12/202019 Inactive True Metrix Glucose Test Strip RxNorm: 1 Test Strips Miscellaneous two times a day as needed 04/17/20 No Stop Date Active metformin 500 mg tablet RxNorm: 673622 1 Tablet(s) Oral every day 04/17/20 20 2019 Inactive diclofenac sodium 75 mg tablet,delayed release RxNorm: 161845 1 Tablet(s) PO BID 04/14/20 20 2021 Inactive This refill negates all other refills of this medication Sudafed 12 Hour 120 mg tablet,extended release RxNorm: 4502145 TAKE 1 TABLET BY MOUTH EVERY 12 HOURS NEEDED 03/14/20 20 2019 Inactive True Metrix Glucose Test Strip RxNorm: 1 Test Strips Miscellaneous every morning 03/13/20 20 2019 Inactive 100/container True Metrix Glucose Test Strip RxNorm: 1 Test Strips Miscellaneous QAM 02/22/20 20 2019 Inactive 100/container loperamide 2 mg tablet RxNorm: 860248 1 Tablet(s) Oral as needed take one tablet after each loose stool, maximum of 8 tablets in 24 hours 02/22/20 20 2019 Inactive levothyroxine 50 mcg tablet RxNorm: 020967 1 Tablet(s) PO daily 01/17/20 20 2020 Inactive cetirizine 10 mg tablet RxNorm: 2689802 1 Tablet(s) PO daily 01/17/20 20 2019 Inactive loperamide 2 mg tablet RxNorm: 063602 1 Tablet(s) Oral as needed take one tablet after each loose stool, maximum of 8 tablets in 24 hours 01/17/20 20 2019 Inactive quetiapine 100 mg tablet RxNorm: 301477 1 Tablet(s) Oral every night at bedtime 01/17/20 20 2019 Inactive gabapentin 300 mg capsule RxNorm: 637392 1 Capsule(s) PO TID 01/17/20 20 2019 Inactive levothyroxine 50 mcg tablet RxNorm: 482598 1 Tablet(s) PO daily 01/15/20 20 2019 Inactive lisinopril 2.5 mg tablet RxNorm: 302738 1 Tablet(s) PO daily 01/15/20 20 2020 Inactive gabapentin 300 mg capsule RxNorm: 093494 1 Capsule(s) PO TID 01/15/20 20 2019 Inactive cetirizine 10 mg tablet RxNorm: 6632325 1 Tablet(s) PO daily 01/15/20 20 2019 Inactive Singulair 10 mg tablet RxNorm: 942632 1 Tablet(s) PO daily 01/15/20 20 2020 Inactive gentamicin 0.3 % eye drops RxNorm: 967168 1 Drop(s) ophthalmic (eye) four times a day 12/29/19 20 2019 Inactive gentamicin 0.3 % eye drops RxNorm: 528535 1 Drop(s) ophthalmic (eye) four times a day 12/29/19 20 2019 Inactive gentamicin 0.3 % eye drops RxNorm: 188317 1 Drop(s) ophthalmic (eye) four times a day 12/29/19 20 2019 Inactive hydrochlorothiazide 25 mg tablet RxNorm: 233203 1 Tablet(s) Oral every day 12/21/19 20 2019 Inactive Sudafed 12 Hour 120 mg tablet,extended release RxNorm: 9988990 TAKE (1) TABLET BY MOUTH EVERY 12 HOURS NEEDED 12/21/19 20 2019 Inactive loperamide 2 mg tablet RxNorm: 696684 1 Tablet(s) Oral as needed take one tablet after each loose stool, maximum of 8 tablets in 24 hours 12/11/19 20 2019 Inactive loperamide 2 mg tablet RxNorm: 312752 1 Tablet(s) Oral as needed take one tablet after each loose stool, maximum of 8 tablets in 24 hours 12/11/19 20 2019 Inactive atorvastatin 40 mg tablet RxNorm: 164202 1 Tablet(s) Oral every day 11/29/19 20 2020 Inactive quetiapine 100 mg tablet RxNorm: 395222 1 Tablet(s) Oral every night at bedtime 11/28/19 20 2019 Inactive sertraline 100 mg tablet RxNorm: 393751 1 Tablet(s) Oral 11/28/19 20 2019 Inactive omeprazole 20 mg capsule,delayed release RxNorm: 960324 1 Capsule(s) Oral every day 11/20/19 20 2019 Inactive amoxicillin 250 mg capsule RxNorm: 189002 1 Capsule(s) Oral three times a day 11/07/19 20 2019 Inactive multivitamin with iron-mineral tablet RxNorm: 1 Tablet(s) Oral every day 10/29/19 20 2021 Inactive cetirizine 10 mg tablet RxNorm: 8888949 1 Tablet(s) PO daily 10/20/19 20 2019 Inactive This refill negates all other refills of this medication. Please do not auto refill Singulair 10 mg tablet RxNorm: 710573 1 Tablet(s) PO daily 10/20/19 20 2019 Inactive This refill negates all other refills of this medication gabapentin 300 mg capsule RxNorm: 683202 1 Capsule(s) PO TID 10/20/19 20 2019 Inactive lisinopril 2.5 mg tablet RxNorm: 327991 1 Tablet(s) PO daily 10/20/19 20 2019 Inactive levothyroxine 50 mcg tablet RxNorm: 900130 1 Tablet(s) PO daily 10/20/19 20 2019 Inactive This refill negates all other refills of this medication fenugreek seed extract 500 mg capsule RxNorm: 1 Capsule(s) Oral three times a day 10/17/19 20 2021 Inactive hydrochlorothiazide 25 mg tablet RxNorm: 349664 1 Tablet(s) Oral every day 10/17/19 20 2019 Inactive Alcohol Prep Pads RxNorm: 725541 1 Patch TOP QAM 10/16/19 20 2020 Inactive loperamide 2 mg tablet RxNorm: 191411 1 Tablet(s) Oral as needed take one [...] 09/19/202019 Inactive hydrochlorothiazide 25 mg tablet RxNorm: 075367 1 Tablet(s) Oral every day 09/19/202019 Inactive Sudafed 12 Hour 120 mg tablet,extended release RxNorm: 8260508 1 Tablet(s) Oral every 12 hours as needed 09/11/20 19 2018 Inactive omeprazole 20 mg capsule,delayed release RxNorm: 381092 1 Capsule(s) Oral every day 09/07/20 19 2019 Inactive Sudafed 12 Hour 120 mg tablet,extended release RxNorm: 3652910 1 Tablet(s) Oral every 12 hours as needed 09/04/20 19 2018 Inactive pantoprazole 40 mg tablet,delayed release RxNorm: 154571 1 Tablet(s) Oral every day 08/24/20 19 2018 Inactive discontinue any other H2Blkr. and PPI albuterol sulfate 2.5 mg/3 mL (0.083 %) solution for nebulization RxNorm: 209029 1 Vial Inhalation every four hours as needed as needed for dyspnea 08/17/20 19 2019 Inactive 60/box. This refill negates all other refills of this medication. Please do not fill early. Please do not auto refill. Symbicort 160 mcg-4.5 mcg/actuation HFA aerosol inhaler RxNorm: 0258145 2 Puff(s) INH BID 08/17/20 19 No Stop Date Active Alcohol Prep Pads RxNorm: 816968 1 Patch TOP QAM 08/17/20 19 2019 Inactive Ventolin HFA 90 mcg/actuation aerosol inhaler RxNorm: 139880 2 Puff(s) INH QID 08/09/20 19 2019 Inactive Please do not fill early. Please do not auto refill. This refill negates all other refills of this medication True Metrix Glucose Test Strip RxNorm: 1 Test Strips Miscellaneous QAM 08/09/20 19 2019 Inactive 100/container atorvastatin 40 mg tablet RxNorm: 289934 1 Tablet(s) Oral every day 07/04/20 19 2019 Inactive levmetamfetamine 50 mg nasal inhaler RxNorm: 1 Unit(s) NASAL Q3-4H Do not use more than every 3 hours or 8 times/24hours 06/26/20 19 2021 Inactive Please do not auto refill. This refill negates all other refills of this medication buspirone 7.5 mg tablet RxNorm: 172452 1 Tablet(s) PO BID 06/26/20 19 2020 Inactive This refill negates all other refills of this medication hydrochlorothiazide 12.5 mg tablet RxNorm: 803640 1 Tablet(s) PO QAM 06/26/20 19 2019 Inactive Ventolin HFA 90 mcg/actuation aerosol inhaler RxNorm: 502473 2 Puff(s) INH QID 06/26/20 19 2018 Inactive Please do not fill early. Please do not auto refill. This refill negates all other refills of this medication Singulair 10 mg tablet RxNorm: 270933 1 Tablet(s) PO daily 06/26/20 19 2019 Inactive This refill negates all other refills of this medication cetirizine 10 mg tablet RxNorm: 4251552 1 Tablet(s) PO daily 06/26/20 19 2019 Inactive This refill negates all other refills of this medication. Please do not auto refill levothyroxine 50 mcg tablet RxNorm: 286467 1 Tablet(s) PO daily 06/26/20 19 2019 Inactive This refill negates all other refills of this medication diclofenac sodium 75 mg tablet,delayed release RxNorm: 717007 1 Tablet(s) PO BID 06/26/20 19 2019 Inactive This refill negates all other refills of this medication ranitidine 150 mg tablet RxNorm: 683834 1 Tablet(s) PO BID 06/26/20 19 2018 Inactive This refill negates all other refills of this medication Calcium 600-D3 Plus (mag-zinc) 600 mg calcium-800 unit-50 mg tablet RxNorm: 1 Tablet(s) PO daily take an additonal tablet for itching. 06/26/20 19 2018 Inactive This refill negates all other refills of this medication albuterol sulfate 2.5 mg/3 mL (0.083 %) solution for nebulization RxNorm: 310078 1 Vial INH QID 06/26/20 19 2018 Inactive 60/box. This refill negates all other refills of this medication. Please do not fill early. Please do not auto refill. lisinopril 2.5 mg tablet RxNorm: 759282 1 Tablet(s) PO daily 06/21/20 19 2019 Inactive gabapentin 300 mg capsule RxNorm: 007170 1 Capsule(s) PO TID 06/21/20 19 2019 Inactive atorvastatin 20 mg tablet RxNorm: 967498 1 Tablet(s) PO QHS 06/07/20 19 2018 Inactive This refill negates all other refills of this medication TRUEplus Lancets 30 gauge RxNorm: 1 Lancets Miscellaneous QAM 05/29/20 19 2018 Inactive 100/box gabapentin 300 mg capsule RxNorm: 230657 1 Capsule(s) PO TID 05/03/20 19 2018 Inactive Flintstones Complete (iron) 18 mg iron chewable tablet RxNorm: 1 Tablet(s) PO daily 04/04/20 19 2021 Inactive This refill negates all other refills of this medication gabapentin 300 mg capsule RxNorm: 662877 1 Capsule(s) PO TID as needed 02/01/20 19 2018 Inactive True Metrix Glucose Test Strip RxNorm: 1 Test Strips Miscellaneous QA 02/01/20 19 2018 Inactive 100/container Alcohol Prep Pads RxNorm: 770683 1 Patch TOP QAM 02/01/20 19 2018 Inactive TRUEplus Lancets 30 gauge RxNorm: 1 Lancets Miscellaneous QAM 02/01/20 19 2018 Inactive 100/box lisinopril 2.5 mg tablet RxNorm: 320786 1 Tablet(s) PO daily 12/28/19 19 2018 Inactive ranitidine 150 mg tablet RxNorm: 970129 1 Tablet(s) PO BID 10/21/192018 Inactive This refill negates all other refills of this medication albuterol sulfate 2.5 mg/3 mL (0.083 %) solution for nebulization RxNorm: 788991 1 Vial INH QID 10/21/192018 Inactive 60/box. [...] this medication gabapentin 300 mg capsule RxNorm: 269430 1 Capsule(s) PO TID as needed 10/21/192018 Inactive atorvastatin 20 mg tablet RxNorm: 765380 1 Tablet(s) PO QHS 10/21/192018 Inactive This refill negates all other refills of this medication trazodone 50 mg tablet RxNorm: 455895 1 Tablet(s) PO QHS 10/21/192018 Inactive This refill negates all other refills of this medication Ventolin HFA 90 mcg/actuation aerosol inhaler RxNorm: 528378 2 Puff(s) INH QID 10/21/192018 Inactive Please do not fill early. Please do not auto refill. This refill negates all other refills of this medication Calcium 600-D3 Plus 600 mg calcium-800 unit-50 mg tablet RxNorm: 1 Tablet(s) PO daily take an additonal tablet for itching. 10/21/192018 Inactive This refill negates all other refills of this medication Singulair 10 mg tablet RxNorm: 929183 1 Tablet(s) PO daily 10/21/192018 Inactive This refill negates all other refills of this medication buspirone 7.5 mg tablet RxNorm: 139512 1 Tablet(s) PO BID 10/21/192018 Inactive This refill negates all other refills of this medication diclofenac sodium 75 mg tablet,delayed release RxNorm: 817561 1 Tablet(s) PO BID 10/21/19 19 2018 Inactive This refill negates all other refills of this medication hydrochlorothiazide 12.5 mg tablet RxNorm: 084474 1 Tablet(s) PO QAM 10/21/192018 Inactive metoprolol succinate ER 50 mg tablet,extended release 24 hr RxNorm: 556941 1 Tablet(s) PO daily 10/21/19 19 2018 Inactive This refill negates all other refills of this medication levothyroxine 50 mcg tablet RxNorm: 331480 1 Tablet(s) PO daily 10/21/19 19 2018 Inactive This refill negates all other refills of this medication cetirizine 10 mg tablet RxNorm: 6606121 1 Tablet(s) PO daily 10/21/19 19 2018 Inactive This refill negates all other refills of this medication. Please do not auto refill Flintstones Complete (iron) 18 mg iron chewable tablet RxNorm: 1 Tablet(s) PO daily 10/21/19 19 2018 Inactive This refill negates all other refills of this medication buspirone 7.5 mg tablet RxNorm: 369013 1 Tablet(s) PO BID 10/12/192018 Inactive cetirizine 10 mg tablet RxNorm: 7036061 1 Tablet(s) PO daily 09/28/20 18 2018 Inactive Guaiasorb DM 10 mg-100 mg/5 mL oral liquid RxNorm: 890848 10 Milliliter(s) PO As needed every 4 hr 09/24/202018 Inactive Vicks Vaporub 4.7 %-1.2 %-2.6 % topical ointment RxNorm: 6006231 1 Application TOP TID 09/24/20 18 2018 Inactive levmetamfetamine 50 mg nasal inhaler RxNorm: 1 Unit(s) NASAL Q3-4H 09/24/20 18 2017 Inactive sertraline 50 mg tablet RxNorm: 201986 1 Tablet(s) PO daily 09/09/20 18 2018 Inactive Please note dose trazodone 50 mg tablet RxNorm: 927518 1 Tablet(s) PO QHS 09/06/20 18 2018 Inactive sertraline 50 mg tablet RxNorm: 297985 1 Tablet(s) PO daily 09/06/20 18 2017 Inactive amoxicillin 500 mg tablet RxNorm: 542446 1 Tablet(s) PO Q12H 08/31/20 18 2017 Inactive albuterol sulfate 2.5 mg/3 mL (0.083 %) solution for nebulization RxNorm: 918099 1 Vial INH QID 08/10/20 18 2018 Inactive 60/box. Please do not fill early. Please do not auto refill. Prozac 10 mg capsule RxNorm: 729578 1 Capsule(s) PO daily 08/09/20 18 2017 Inactive buspirone 7.5 mg tablet RxNorm: 576292 1 Tablet(s) PO BID 08/09/20 18 2018 Inactive gabapentin 300 mg capsule RxNorm: 911391 1 Capsule(s) PO TID as needed 08/01/20 18 2018 Inactive hydrochlorothiazide 12.5 mg tablet RxNorm: 640987 1 Tablet(s) PO QAM 08/01/20 18 2018 Inactive ranitidine 150 mg tablet RxNorm: 024563 1 Tablet(s) PO BID 08/01/20 18 2018 Inactive Macrobid 100 mg capsule RxNorm: 706393 1 Capsule(s) PO Q12H 06/21/20 18 2017 Inactive Singulair 10 mg tablet RxNorm: 736177 1 Tablet(s) PO daily 06/14/20 18 2018 Inactive Ventolin HFA 90 mcg/actuation aerosol inhaler RxNorm: 9248049 2 Puff(s) INH QID 06/14/20 18 2018 Inactive Singulair 10 mg tablet RxNorm: 503874 1 Tablet(s) PO daily 06/14/20 18 2017 Inactive buspirone 7.5 mg tablet RxNorm: 439135 1 Tablet(s) PO BID 06/14/20 18 2017 Inactive Prozac 10 mg capsule RxNorm: 093584 1 Capsule(s) PO daily 06/14/20 18 2017 Inactive Neilmed Pediatric Sinus Rinse Refill packet RxNorm: 1 Unit Dose NASAL PRN 05/31/20 18 2021 Inactive diclofenac sodium 75 mg tablet,delayed release RxNorm: 667614 1 Tablet(s) PO BID 05/31/20 18 2017 Inactive lisinopril 2.5 mg tablet RxNorm: 203582 1 Tablet(s) PO daily 05/31/20 18 2017 Inactive metoprolol succinate ER 50 mg tablet,extended release 24 hr RxNorm: 738403 1 Tablet(s) PO daily 05/31/20 18 2017 Inactive levothyroxine 50 mcg tablet RxNorm: 472753 1 Tablet(s) PO daily 05/31/20 18 2017 Inactive TRUEplus Lancets 30 gauge RxNorm: 1 Lancets Miscellaneous QAM 05/31/20 18 2017 Inactive 100/box Ventolin HFA 90 mcg/actuation aerosol inhaler RxNorm: 694588 2 Puff(s) INH QID 05/31/20 18 2017 Inactive Aleve 220 mg capsule RxNorm: 2004315 1 Capsule(s) PO BID 05/31/20 18 2018 Inactive ranitidine 150 mg tablet RxNorm: 421970 1 Tablet(s) PO BID 05/31/20 18 2017 Inactive gabapentin 300 mg capsule RxNorm: 799211 1 Capsule(s) PO TID as needed 05/31/20 18 2017 Inactive atorvastatin 20 mg tablet RxNorm: 192575 1 Tablet(s) PO QHS 05/31/20 18 2017 Inactive True Metrix Glucose Test Strip RxNorm: 1 Test Strips Miscellaneous QAM 05/31/20 18 2017 Inactive 50/container Calcium 600-D3 Plus 600 mg calcium-800 unit-50 mg tablet RxNorm: 1 Tablet(s) PO daily take an additonal tablet for itching. 05/31/20 18 2017 Inactive hydrochlorothiazide 12.5 mg tablet RxNorm: 902674 1 Tablet(s) PO QAM 05/31/20 18 2017 Inactive Flintstones Complete (iron) 18 mg iron chewable tablet RxNorm: 1 Tablet(s) PO daily 05/31/20 18 2017 Inactive d-mannose oral powder RxNorm: PO 18 2021 Inactive True Metrix Glucose Meter RxNorm: miscellaneous 08/17/20 19 2018 Inactive sertraline 50 mg tablet RxNorm: 107222 1 Tablet(s) PO daily 11/28/19 20 2019 Inactive loperamide 2 mg tablet RxNorm: 065691 oral 09/29/20 19 2018 Inactive Symbicort 160 mcg-4.5 mcg/actuation HFA aerosol inhaler RxNorm: 4112058 2 Puff(s) INH BID 08/17/20 19 2018 Inactive Medication Administered No Medication Administered data Procedures Procedure Codes Date Annual Wellness Visit (Subsequent Visit) CPT-4: G0439 01/13/2021 Advanced Care Planning CPT-4: VACP Fall Risk Assessment SNOMED CT: 79749832 4 CPT-4: DFRA01/13/2021nnual Wellness Visit (Subsequent Visit) Tobacco Assessment/Never used tobacco, Chronic Opioid [...] direct assistance, cuing, or supervision, to perform thefollowing safely:/transportation, Activities of Daily Living/ADLs - Patient needs direct assistance, cuing, or supervision, to perform the following safely:/*No assistance, cuing, or supervision needed, Fall Risk Assessment/Two or more falls in the past year?/No, Fall Risk Assessment/Fall with injury in the past year?/NoCPT-4: A7997Vutiioe 01/13/2021dvanced Care Planning Time spent discussing advance directives and/or completing forms with the patient or caregiver:/16 minutes (minimum) - 30 minutes, Advance Directive Status:/Reviewed and updated as pertinent, see Hx tabCPT-4: VACPUnknown 01/13/2021Fall Risk Assessment Two or more falls in the past year?/No, Has there been a fall with injury in the last year?/No, Plan:/Monitor gait and balance PRN, no current action needed [facility] CT: 202051233 CPT-4: PNWKSyannaa64/13/2021Functional Assessment ADLs - Patient needs direct assistance, cuing, or supervision, to perform the following safely:/*Noassistance, cuing, or supervision needed, IADLs - Patient needs direct assistance, cuing, or supervision, to perform the following safely:/shopping, IADLs - Patient needs direct assistance, cuing, orsupervision, to perform the following safely:/transportationCPT-4: XDJPdtdtni22/13/2021 Patient health Questionnaire-2 Over the past two weeks, have you felt little interest or pleasure in doing things?/(0) Not at all,Over the past two weeks, have you felt down, depressed, or hopeless?/(0) Not at all, Score:/0-2= Negative for depression (Plan NOT REQUIRED)CPT-4: ZDQW0Ekvvcvy89/13/2021emmes Fany AssessmentCPT-4: DSWA 12/17/2020Urinalysis, dip stickCPT-4: 2022480Patient Health QuestionnaireCPT-4: DPH08/19/2020ElectrocardiogramCPT-4: 3564087Tobacco Assessment/ScreeningCPT-4: TCA01/01/2020Fall Risk AssessmentSNOMED CT: 654151597 CPT-4: DFRA01/01/2020Functional AssessmentCPT-4: DFA01/01/2020[place] Fany AssessmentCPT-4: DSWA11/28/2019Patient Health QuestionnaireCPT-4: DPHQ11/28/2019 [place] Fany AssessmentCPT-4: DSWA10/17/2019HypertensionCPT-4: HTN10/17/[address]: 427164003 CPT-4: DFRA09/19/2019Functional AssessmentCPT-4: DFA111/20/2018Urinalysis, dip stickCPT-4: 113243706/21/2019Tobacco Assessment/ScreeningCPT-4: TCA05/24/2019 Patient Health QuestionnaireCPT-4: DPHQ05/24/2019AHA/REBECCA Classification AssessmentCPT-4: DAHA04/25/2019Controlled Substance ReportCPT-4: CTRSU04/25/2019 Urinalysis, dip stickCPT-4: 244157103/28/2019Urinalysis, dip stickCPT-4: 30282 03/28/20191033E7B-ArgnxnrrgluncqkPHY-7: 97330CqidmlzV8F-PeqxqnpfzktblhoDIH-5: 04635 KpsuhybU1K-AzyscsfybsdlovyWBL-9: 75150DvczjnzD0F-PhxnlzvzujvueqmOZT-7: 74108 PzykkmnS7Y-XuidrivgytjnjxoPPQ-2: 11020OdhshorP4P-FaocawmoibllzeeXOM-6: 508[address] [address]: [id number] CPT-4: B88Wislhcj Reason For Visit Reason For Visit Effective Dates Notes Interim health update 01/13/2021 diabetes mellitus 01/13/2021 hypertension 01/13/2021 anorexia 01/13/2021 genitouriniary male/female complaint 01/13/2021 Encounters Encounter Performer Location Location Address Codes Magdi e ([id number]) (EST PT) DETAILED TE [facility] VISIT Diagnosis: Hypertensive heart disease with heart failure[ICD10: I11.0] Diagnosis: Type 2 diabetes mellitus with peripheral neuropathy[ICD10: E11.42] Diagnosis: Chronic kidney disease, stage 2 (mild)[ICD10: N18.2] Diagnosis: History of bladder surgery[ICD10: Z98.890] Diagnosis: Urinary retention with incomplete bladder emptying[ICD10: R33.9] Diagnosis: (Z00.01-V70.0) Encounter for general adult medical examination with abnormal findings[ICD10: Z00.01] Diagnosis: (Z13.31-V79.0) Encounter for screening for depression[ICD10: Z13.31] Anna Friedmanlucilaelyssa [id number] [place] [address] [address] [place], [place] [address]GWD-5: [id number]/ Plan of Care Planned Activity Notes Codes Status Date Visit Plan: R63.0-783.0 Anorexia Ongoing lack of appetite for solid foods for several weeks, denies difficulties managing fluids-drank entire bottle of carbonated water during visit advised to continue to try small, more frequent food intake, discussed limiting carbonated beverages as this may make her feel full taking away appetite discussed benefits of [employer] Instant Breakfast. note weight remain relatively stable over the past couple months-will continue to monitor E11.42-250.60 Type 2 diabetes mellitus with peripheral neuropathy ranging 103-126, Metformin 1000mg BID - received new monitor [employer] through [employer]-participant of [employer] on [employer] - 10/29/2020 hgb A1C 5.6 10/17/2019 [place] Fany 7/10-instructed on good daily foot care [...] evening eating, avoid fried, greasy foods, and car bonated beverages G47.33-327.23 Obstructive sleep apnea (adult) (pediatric) J45.909-493.90 Asthma has had a few nights of not wearing her cpap-discussed wearing at all times continue inhalers nebulizer routine f/u Dr. Garcia, pulmonology F43.23-309.28 Adjustment disorder with mixed anxiety and depressed mood routine follow up [place] [facility] [place] 08/19/2020 PHQ 9 Scoere 1, admits to [...] for general adult medical examination with abnormal fi ndings 01/13/2021 AWV complete 01/13/2021 ACP review 01/13/2021 FRA complete-denies any falls 01/13/2021 Functional assessment complete-independent with ADLs 01/13/2021 PHQ 2 Score 0 Z13.9-V82.9 Encounterfor screening, unspecified 07/08/2020 Maltreatment assessment complete-patient denies any form of abuse or neglect Z68.43-V85.43 Adult BMI 50.0-59.9 kg/sq continues to loose weight trying to avoid soda, drinking sparkling flavored pal and occasional Heike Green Tea and honey Z12.4-V76.2 Encounter for screening for malignant neoplasm of cervix last pap January 2019 new appt for pap in June 2020-[employer]- reports pap negative-records requested Z01.89-V72.85 Encounter for screening for tobacco use 12/31/2020 Tobacco screen complete-patient denies ever smoking Z12.31-V76.12 (Z12.31-V76.12) Encounter for screening mammogram for malignant neoplasm of breast Z12.11-V76.51 (Z12.11-V76.51) Encounter for screening for malignant neoplasm of colon Preventative testing not indicated due toage *I reviewed the most recent CDC guidelines regarding Covid-19/Coronavirus with the patient/caregiver/designee 1Patient Education: Patient Medication KsxnqatXfqolzzvx72/13/2021 Patient Education: YxbfznfyXkwwjdtmy84/13/2021atient Education: Hypertension Ibnrxmkaj42/13/2021ppointment: Anna Culver WPtel: [address] [place] [address] [id number]: Chivo Bishop WPtel: [address] [place] [address] USETV11/28/2020ppointment: Anna Culver WPtel: [address] [place] [address] USETV11/24/2020ppointment: Anna Culver WPtel: [address] [place] [address] [id number]: Anna Culver WPtel: [address] [place] [address] [id number]/25/2019Appointment: Anna Culver WPtel: [address] [place] [address] USETV110/26/2019Appointment: Anna Culver WPtel: [address] [place] [address] USETV110/19/2019Appointment: Anna Culver WPtel: [phone] [place] [address] [id number]: Anna Culver WPtel: [phone] [place] [address] [address] [place] [address] USETV10Appointment: Vinnie Giannaalex Cornejonicole: [address] [facility] [address] [id number]: Anna Culver WPtel: [phone] [place] [address] [address] [place] [address] [id number]: Anna Culver WPtel: [phone] [place] [address] [address] [place] [address] [id number]: Anna Culver WPtel: [id number] [place] [address] [id number]: Anna Culver WPtel: [address] [place] [address] [id number]: Anna Culver WPtel: [phone] [place] [address] [id number]: Anna Culver WPtel: [phone] [place] [address] [id number]: Anna Culver WPtel: [phone] [place] [address] [id number]: Anna Culver WPtel: [id number] [place] [address] [id number]: Anna Culver WPtel: [phone] [place] [address] [id number]: Anna Culver WPtel: [phone] [place] [address] [id number]/20/2018Appointment: Sudha Hernadez WPtel: [address] [facility] [address] [id number]: Sudha Hernadez WPtel: [address] [facility] [id number]: Charlene Oropeza WPtel: [address] [facility] [id number]: Bianca [id number]: Charlene Oropeza WPtel: [address] [facility] [id number]: Haupricht, Rasta WPtel: [address] [facility] [id number]: Haupricht, Rasta WPtel: [address] [facility] [id number]: Haupricht, Rasta WPtel: [address] [facility] [id number]: Haupricht, Rasta WPtel: [address] [facility] [id number] [id number]: Pending Gynecology Referral InformationReferral ProcessedReferral: Pending Pulmonology Referral InformationReferralProcessed Referral: Pending Psychiatry Referral InformationReferralInitiatedReferral: Pending Respiratory Services Referral InformationReferralInitiatedReferral: Pending Ophthalmology Referral InformationReferralInitiatedReferral: [facility] WPtel: [address] USWriter placed a call out to the patient to notify her that it has been recommended that she be seenby a urologist. Patient agreed to be seen, does not have a provider of choice and no transportationissues. Nursing Specialist faxed referral and clinical notes to [facility] in [place], [place] near the patient's home. Patient to [...] seen and prefers a provider in the [place] or [place] area. Nursing Specialist placed a call out to everyone listed in the area and the only location that was able to accept the patient's insurance was [address] [address] and spoke with Maylin. Maylin asked that the patient's referral, face sheet and visit notes be faxed to . Nursing Specialist faxed over requested documents. Patient appointment confirmation letter generated and mailed to her home address. Patient to call to schedule an appointment.ProcessedReferral: [facility] WPtel: [address] [place], [place] [id number] USPatient notified that it has been advised that she be seen by Neurology. Patient agreed to be seen and prefers to be seen by a provider in the [place], [place] area. Patient denies any concerns with transportation, and prefers to schedule her own appointment. Nursing Specialist placed a call out to [facility] and spoke with Neearj P: who confirmed that their office is [...] full taking away appetite discussed benefits of [employer] Instant Breakfast. note weight remain relatively stable over the past couple months-will continue to monitor E11.42-250.60 Type 2 diabetes mellitus with peripheral neuropathy ranging 103-126, Metformin 1000mg BID - received new monitor [employer] through [employer]-participant of [employer] on demand - 10/29/2020 hgb A1C 5.6 10/17/2019 [place] Fany 7/10-instructed on good daily foot care [...] rinary stimulator implant surgery 01/05/2021-feels bladder emptying hasimproved K21.9-530.81 GERD (gastroesophageal reflux disease) continue famotidine [...] anxiety and depressed mood routine follow up [place] [facility] [place] 08/19/2020 PHQ 9 Scoere 1, admits to feeling down at times due to not able to bring dog to new apartment and occasionally misses 11104/2020 Functional Assessment independent with ADLs E03.9-244.9 Hypothyroidism, [...] new appt for pap in June 2020-[employer]-reports pap negative-recordsrequested Z01.89-V72.85 Encounter for screening for [...]
--- OUTSIDE RECORDS SUMMARY | 2023-12-07 02:16 | XMS_ITS | CCD ---
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 Commercial Shrimping Captain Name Role Phone Palomo KING, Anna Primary Care Provider Unav ailable Unavailable Chronic Care Management Unavaila ble Summary Purpose DataExchange Insurance Providers Payer name Policy type / Coverage type Covered democrat ID Effective Begin Date Effective End Date [facility] [id number] Unknown Unknown Family history Mother Diagnosis Age [...] 05/31/2018 Education level Unknown Some High School 10th05/31/20182341PvpsiflljuQmwqocvGknxbyrmys29/29/2018Tobacco historySNOMED CT: 028392190Abi never smoked or chewed fzujddg7605/31/2018Alcohol historySNOMED CT: 145331182Dmfpt drinks rnfnxxh6105/31/2018Has the patient ever used illegal drugs? UnknownHas never used illegal drugs05/31/2018DNR Order/ Advanced Directive UnknownFull Code05/31/2018 Allergies, Adverse Reactions, Alerts Substance Reaction Codes Entered Date Inactivated Date Status OxyContin itch, RxNorm: 267781 01/13/2021 No Inactive Da te Active *No known food allergies Ccwzims8409/06/2018No Inactive DateActiveMethylprednisolonehivesRxNorm: 6902 09/06/2018No Inactive DateActive Problems Condition Codes Effective Dates Condition St atus Anorexia ICD-10: R63.0 ICD-9: 783.003/ctiveChronic kidney disease, stage 2 (mild)ICD-10: N18.2 ICD-9: 585.201/ctiveFamily history of seizuresICD-10: Z84.89 ICD-9: V19.807/ctiveHypertensive heart disease with heart failureICD-10: I11.0 ICD-9: 402.9107/ActiveSyncope and collapseICD-10: R55 ICD-9: 780.ActiveType 2 diabetes mellitus with peripheral neuropathy ICD-10: E11.42 ICD-9: 250.6002ActiveAdjustment disorder with mixed anxiety and depressed moodICD-10: F43.23 ICD-9: 309.2812ActivePost-traumatic stress disorder, unspecifiedICD-10: F43.10 ICD-9: 309.8112ActiveBlisterICD-10: T14.8XXA ICD-9: 919.ctiveObstructive sleep apnea (adult) (pediatric)ICD-10: G47.33 ICD-9: 327.2309ActiveEncounter [...] examinationICD-10: Z01.810 ICD-9: V72.8106/InactiveHeadacheICD-10: R51 ICD-9: 784.001InactiveOther extermination inspector (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ICD-10: Z79.899 ICD-9: V58.6907/InactiveType 2 [...] cervixICD-10: Z12.4 ICD-9: V76.207/ActiveHypothyroidism, unspecifiedICD-10: E03.9 ICD-9: 244.9111/06/2017Active(Z12.11-V76.51) Encounter for screening for malignant neoplasm of [...] Heartburn Relief (famotidine) 10 mg tablet RxNorm: 066240 Take 1 Tablet(s) Oral every morning 05/07/20 21 2020 Inactive omeprazole 20 mg capsule,delayed release RxNorm: 380249 1 Capsule(s) Oral every evening 04/03/20 21 2020 Inactive sertraline 100 mg tablet RxNorm: 834019 2 Tablet(s) Oral every day 03/13/202020 Inactive levothyroxine 50 mcg tablet RxNorm: 600539 TAKE (1) TABLET BY MOUTH DAILY 02/04/20 21 2020 Inactive metformin 500 mg tablet RxNorm: 619006 1 Tablet(s) Oral two times a day take with 500mg to equal 1000mg 01/14/20 21 2020 Inactive gabapentin 300 mg capsule RxNorm: 799838 TAKE 1 CAPSULE BY MOUTH THREE TIMES A DAY 01/14/20 21 2020 Inactive lisinopril 2.5 mg tablet RxNorm: 220438 TAKE 1 TABLET BY MOUTH DAILY 01/06/20 21 2020 Inactive gabapentin 300 mg capsule RxNorm: 236478 TAKE 1 CAPSULE BY MOUTH THREE TIMES A DAY 01/06/202020 Inactive Singulair 10 mg tablet RxNorm: 877538 TAKE (1) TABLET BY MOUTH DAILY 01/06/20 21 2020 Inactive metformin 1,000 mg tablet RxNorm: 275748 1 Tablet(s) Oral two times a day 01/06/20 21 2020 Inactive atorvastatin 40 mg tablet RxNorm: 936381 1 Tablet(s) Oral every day 12/06/19 21 2020 Inactive omeprazole 20 mg capsule,delayed release RxNorm: 987367 1 Capsule(s) Oral every evening 11/24/19 21 2020 Inactive famotidine 10 mg tablet RxNorm: 129984 1 Tablet(s) Oral every morning 11/24/19 21 2020 Inactive Alcohol Prep Pads RxNorm: 784016 USE EACH MORNING 10/14/19 21 2020 Inactive omeprazole 20 mg capsule,delayed release RxNorm: 684979 1 Capsule(s) Oral two times a day 10/13/19 21 2021 Inactive omeprazole 20 mg capsule,delayed release RxNorm: 728790 TAKE 1 CAPSULE BY MOUTH EVERY DAY 10/08/19 21 2021 Inactive Macrobid 100 mg capsule RxNorm: 497848 1 Capsule(s) Oral every 12 hours with food 10/01/20 20 2020 Inactive omeprazole 20 mg capsule,delayed release RxNorm: 871904 1 Capsule(s) Oral two times a day 09/24/20 20 2021 Inactive metformin 1,000 mg tablet RxNorm: 608522 1 Tablet(s) Oral two times a day 08/19/20 20 2020 Inactive start on September 11, 2020 metformin 500 mg tablet RxNorm: 037499 1 Tablet(s) Oral two times a day take with 500mg to equal 1000mg 08/19/20 20 2019 Inactive gabapentin 300 mg capsule RxNorm: 638964 TAKE 1 CAPSULE BY MOUTH THREE TIMES DAILY 07/11/20 20 2020 Inactive cetirizine 10 mg tablet RxNorm: 4634549 TAKE (1) TABLET BY MOUTH DAILY 07/11/20 20 2020 Inactive metformin 500 mg tablet RxNorm: 596477 1 Tablet(s) Oral two times a day 07/08/20 20 2019 Inactive loperamide 2 mg tablet RxNorm: 068202 1 Tablet(s) Oral as needed take one tablet after each loose stool, maximum of 8 tablets in 24 hours 06/24/20 20 2021 Inactive Sudafed 12 Hour 120 mg tablet,extended release RxNorm: 2088594 TAKE 1 TABLET BY MOUTH EVERY 12 HOURS NEEDED 06/11/20 20 2019 Inactive hydrochlorothiazide 25 mg tablet RxNorm: 619318 TAKE (1) TABLET BY MOUTH EVERY DAY 06/11/20 20 2019 Inactive omeprazole 20 mg capsule,delayed release RxNorm: 726418 TAKE 1 CAPSULE BY MOUTH EVERY DAY 05/14/20 20 2020 Inactive metformin 500 mg tablet RxNorm: 795382 1 Tablet(s) Oral every day 05/12/20 20 2019 Inactive True Metrix Glucose Test Strip RxNorm: 1 Test Strips Miscellaneous two times a day as needed 04/17/20 No Stop Date Active metformin 500 mg tablet RxNorm: 051933 1 Tablet(s) Oral every day 04/17/20 20 2019 Inactive diclofenac sodium 75 mg tablet,delayed release RxNorm: 623938 1 Tablet(s) PO BID 04/14/20 20 2021 Inactive This refill negates all other refills of this medication Sudafed 12 Hour 120 mg tablet,extended release RxNorm: 8330450 TAKE 1 TABLET BY MOUTH EVERY 12 HOURS NEEDED 03/14/20 20 2019 Inactive True Metrix Glucose Test Strip RxNorm: 1 Test Strips Miscellaneous every morning 03/13/20 20 2019 Inactive 100/container True Metrix Glucose Test Strip RxNorm: 1 Test Strips Miscellaneous QAM 02/22/20 20 2019 Inactive 100/container loperamide 2 mg tablet RxNorm: 624690 1 Tablet(s) Oral as needed take one tablet after each loose stool, maximum of 8 tablets in 24 hours 02/22/20 20 2019 Inactive cetirizine 10 mg tablet RxNorm: 8070396 1 Tablet(s) PO daily 01/17/20 20 2019 Inactive loperamide 2 mg tablet RxNorm: 307508 1 Tablet(s) Oral as needed take one tablet after each loose stool, maximum of 8 tablets in 24 hours 01/17/20 20 2019 Inactive quetiapine 100 mg tablet RxNorm: 053056 1 Tablet(s) Oral every night at bedtime 01/17/20 20 2019 Inactive levothyroxine 50 mcg tablet RxNorm: 651047 1 Tablet(s) PO daily 01/17/20 20 2020 Inactive gabapentin 300 mg capsule RxNorm: 570228 1 Capsule(s) PO TID 01/17/20 20 2019 Inactive levothyroxine 50 mcg tablet RxNorm: 084165 1 Tablet(s) PO daily 01/15/20 20 2019 Inactive lisinopril 2.5 mg tablet RxNorm: 045294 1 Tablet(s) PO daily 01/15/20 20 2020 Inactive gabapentin 300 mg capsule RxNorm: 701523 1 Capsule(s) PO TID 01/15/20 20 2019 Inactive cetirizine 10 mg tablet RxNorm: 3224100 1 Tablet(s) PO daily 01/15/20 20 2019 Inactive Singulair 10 mg tablet RxNorm: 982724 1 Tablet(s) PO daily 01/15/20 20 2020 Inactive gentamicin 0.3 % eye drops RxNorm: 782280 1 Drop(s) ophthalmic (eye) four times a day 12/29/19 20 2019 Inactive gentamicin 0.3 % eye drops RxNorm: 147504 1 Drop(s) ophthalmic (eye) four times a day 12/29/19 20 2019 Inactive gentamicin 0.3 % eye drops RxNorm: 321639 1 Drop(s) ophthalmic (eye) four times a day 12/29/19 20 2019 Inactive hydrochlorothiazide 25 mg tablet RxNorm: 222021 1 Tablet(s) Oral every day 12/21/19 20 2019 Inactive Sudafed 12 Hour 120 mg tablet,extended release RxNorm: 9629900 TAKE (1) TABLET BY MOUTH EVERY 12 HOURS NEEDED 12/21/19 20 2019 Inactive loperamide 2 mg tablet RxNorm: 389516 1 Tablet(s) Oral as needed take one tablet after each loose stool, maximum of 8 tablets in 24 hours 12/11/19 20 2019 Inactive loperamide 2 mg tablet RxNorm: 725663 1 Tablet(s) Oral as needed take one tablet after each loose stool, maximum of 8 tablets in 24 hours 12/11/19 20 2019 Inactive atorvastatin 40 mg tablet RxNorm: 081390 1 Tablet(s) Oral every day 11/29/19 20 2020 Inactive quetiapine 100 mg tablet RxNorm: 735399 1 Tablet(s) Oral every night at bedtime 11/28/19 20 2019 Inactive sertraline 100 mg tablet RxNorm: 640788 1 Tablet(s) Oral 11/28/19 20 2019 Inactive omeprazole 20 mg capsule,delayed release RxNorm: 465516 1 Capsule(s) Oral every day 11/20/19 20 2019 Inactive amoxicillin 250 mg capsule RxNorm: 238110 1 Capsule(s) Oral three times a day 11/07/19 20 2019 Inactive multivitamin with iron-mineral tablet RxNorm: 1 Tablet(s) Oral every day 10/29/192021 Inactive cetirizine 10 mg tablet RxNorm: 9994951 1 Tablet(s) PO daily 10/20/192019 Inactive This refill negates all other refills of this medication. Please do not auto refill Singulair 10 mg tablet RxNorm: 353856 1 Tablet(s) PO daily 10/20/19 20 2019 Inactive This refill negates all other refills of this medication gabapentin 300 mg capsule RxNorm: 777085 1 Capsule(s) PO TID 10/20/192019 Inactive lisinopril 2.5 mg tablet RxNorm: 447786 1 Tablet(s) PO daily 10/20/19 20 2019 Inactive levothyroxine 50 mcg tablet RxNorm: 014741 1 Tablet(s) PO daily 10/20/192019 Inactive This refill negates all other refills of this medication fenugreek seed extract 500 mg capsule RxNorm: 1 Capsule(s) Oral three times a day 10/17/192021 Inactive hydrochlorothiazide 25 mg tablet RxNorm: 084588 1 Tablet(s) Oral every day 10/17/19 20 2019 Inactive Alcohol Prep Pads RxNorm: 973242 1 Patch TOP QAM 10/16/19 20 2020 Inactive loperamide 2 mg tablet RxNorm: 561185 1 Tablet(s) Oral as needed take one [...] 2019 Inactive hydrochlorothiazide 25 mg tablet RxNorm: 264431 1 Tablet(s) Oral every day 09/19/20 19 2019 Inactive Sudafed 12 Hour 120 mg tablet,extended release RxNorm: 2323966 1 Tablet(s) Oral every 12 hours as needed 09/11/20 19 2018 Inactive omeprazole 20 mg capsule,delayed release RxNorm: 429128 1 Capsule(s) Oral every day 09/07/20 19 2019 Inactive Sudafed 12 Hour 120 mg tablet,extended release RxNorm: 8612970 1 Tablet(s) Oral every 12 hours as needed 09/04/20 19 2018 Inactive pantoprazole 40 mg tablet,delayed release RxNorm: 189299 1 Tablet(s) Oral every day 08/24/20 19 2018 Inactive discontinue any other H2Blkr. and PPI albuterol sulfate 2.5 mg/3 mL (0.083 %) solution for nebulization RxNorm: 313245 1 Vial Inhalation every four hours as needed as needed for dyspnea 08/17/20 19 2019 Inactive 60/box. This refill negates all other refills of this medication. Please do not fill early. Please do not auto refill. Symbicort 160 mcg-4.5 mcg/actuation HFA aerosol inhaler RxNorm: 9510866 2 Puff(s) INH BID 08/17/20 No Stop Date Active Alcohol Prep Pads RxNorm: 184456 1 Patch TOP QAM 08/17/20 19 2019 Inactive Ventolin HFA 90 mcg/actuation aerosol inhaler RxNorm: 446650 2 Puff(s) INH QID 08/09/20 19 2019 Inactive Please do not fill early. Please do not auto refill. This refill negates all other refills of this medication True Metrix Glucose Test Strip RxNorm: 1 Test Strips Miscellaneous QAM 08/09/20 19 2019 Inactive 100/container atorvastatin 40 mg tablet RxNorm: 422223 1 Tablet(s) Oral every day 07/04/20 19 2019 Inactive levmetamfetamine 50 mg nasal inhaler RxNorm: 1 Unit(s) NASAL Q3-4H Do not use more than every 3 hours or 8 times/24hours 06/26/20 19 2021 Inactive Please do not auto refill. This refill negates all other refills of this medication buspirone 7.5 mg tablet RxNorm: 805635 1 Tablet(s) PO BID 06/26/20 19 2020 Inactive This refill negates all other refills of this medication hydrochlorothiazide 12.5 mg tablet RxNorm: 048219 1 Tablet(s) PO QAM 06/26/20 19 2019 Inactive Ventolin HFA 90 mcg/actuation aerosol inhaler RxNorm: 181677 2 Puff(s) INH QID 06/26/20 19 2018 Inactive Please do not fill early. Please do not auto refill. This refill negates all other refills of this medication Singulair 10 mg tablet RxNorm: 368034 1 Tablet(s) PO daily 06/26/20 19 2019 Inactive This refill negates all other refills of this medication cetirizine 10 mg tablet RxNorm: 8441409 1 Tablet(s) PO daily 06/26/20 19 2019 Inactive This refill negates all other refills of this medication. Please do not auto refill levothyroxine 50 mcg tablet RxNorm: 755776 1 Tablet(s) PO daily 06/26/20 19 2019 Inactive This refill negates all other refills of this medication diclofenac sodium 75 mg tablet,delayed release RxNorm: 385976 1 Tablet(s) PO BID 06/26/20 19 2019 Inactive This refill negates all other refills of this medication ranitidine 150 mg tablet RxNorm: 764877 1 Tablet(s) PO BID 06/26/20 19 2018 Inactive This refill negates all other refills of this medication Calcium 600-D3 Plus (mag-zinc) 600 mg calcium-800 unit-50 mg tablet RxNorm: 1 Tablet(s) PO daily take an additonal tablet for itching. 06/26/20 19 2018 Inactive This refill negates all other refills of this medication albuterol sulfate 2.5 mg/3 mL (0.083 %) solution for nebulization RxNorm: 434920 1 Vial INH QID 06/26/20 19 2018 Inactive 60/box. This refill negates all other refills of this medication. Please do not fill early. Please do not auto refill. lisinopril 2.5 mg tablet RxNorm: 838380 1 Tablet(s) PO daily 06/21/20 19 2019 Inactive gabapentin 300 mg capsule RxNorm: 762057 1 Capsule(s) PO TID 06/21/20 19 2019 Inactive atorvastatin 20 mg tablet RxNorm: 700297 1 Tablet(s) PO QHS 06/07/20 19 2018 Inactive This refill negates all other refills of this medication TRUEplus Lancets 30 gauge RxNorm: 1 Lancets Miscellaneous QAM 05/29/20 19 2018 Inactive 100/box gabapentin 300 mg capsule RxNorm: 983607 1 Capsule(s) PO TID 05/03/20 19 2018 Inactive Flintstones Complete (iron) 18 mg iron chewable tablet RxNorm: 1 Tablet(s) PO daily 04/04/20 19 2021 Inactive This refill negates all other refills of this medication gabapentin 300 mg capsule RxNorm: 271817 1 Capsule(s) PO TID as needed 02/01/20 19 2018 Inactive True Metrix Glucose Test Strip RxNorm: 1 Test Strips Miscellaneous QAM 02/01/20 2018 Inactive 100/container Alcohol Prep Pads RxNorm: 151117 1 Patch TOP QAM 02/01/202018 Inactive TRUEplus Lancets 30 gauge RxNorm: 1 Lancets Miscellaneous QAM 02/01/20 19 2018 Inactive 100/box lisinopril 2.5 mg tablet RxNorm: 449924 1 Tablet(s) PO daily 12/28/192018 Inactive ranitidine 150 mg tablet RxNorm: 526052 1 Tablet(s) PO BID 10/21/192018 Inactive This refill negates all other refills of this medication albuterol sulfate 2.5 mg/3 mL (0.083 %) solution for nebulization RxNorm: 600475 1 Vial INH QID 10/21/192018 Inactive 60/box. [...] this medication gabapentin 300 mg capsule RxNorm: 923268 1 Capsule(s) PO TID as needed 10/21/192018 Inactive atorvastatin 20 mg tablet RxNorm: 023707 1 Tablet(s) PO QHS 10/21/192018 Inactive This refill negates all other refills of this medication trazodone 50 mg tablet RxNorm: 157976 1 Tablet(s) PO QHS 10/21/19 19 2018 Inactive This refill negates all other refills of this medication Ventolin HFA 90 mcg/actuation aerosol inhaler RxNorm: 876535 2 Puff(s) INH QID 10/21/19 19 2018 [...] this medication Singulair 10 mg tablet RxNorm: 312566 1 Tablet(s) PO daily 10/21/19 19 2018 Inactive This refill negates all other refills of this medication buspirone 7.5 mg tablet RxNorm: 737123 1 Tablet(s) PO BID 10/21/192018 Inactive This refill negates all other refills of this medication diclofenac sodium 75 mg tablet,delayed release RxNorm: 813684 1 Tablet(s) PO BID 10/21/19 19 2018 Inactive This refill negates all other refills of this medication hydrochlorothiazide 12.5 mg tablet RxNorm: 198066 1 Tablet(s) PO QAM 10/21/19 19 2018 Inactive metoprolol succinate ER 50 mg tablet,extended release 24 hr RxNorm: 716664 1 Tablet(s) PO daily 10/21/192018 Inactive This refill negates all other refills of this medication levothyroxine 50 mcg tablet RxNorm: 989610 1 Tablet(s) PO daily 10/21/192018 Inactive This refill negates all other refills of this medication cetirizine 10 mg tablet RxNorm: 5236634 1 Tablet(s) PO daily 10/21/192018 Inactive This refill negates all other refills of this medication. Please do not auto refill Flintstones Complete (iron) 18 mg iron chewable tablet RxNorm: 1 Tablet(s) PO daily 10/21/192018 Inactive This refill negates all other refills of this medication buspirone 7.5 mg tablet RxNorm: 937049 1 Tablet(s) PO BID 10/12/192018 Inactive cetirizine 10 mg tablet RxNorm: 5786726 1 Tablet(s) PO daily 09/28/202018 Inactive Guaiasorb DM 10 mg-100 mg/5 mL oral liquid RxNorm: 152481 10 Milliliter(s) PO As needed every 4 hr 09/24/20 18 2018 Inactive Vicks Vaporub 4.7 %-1.2 %-2.6 % topical ointment RxNorm: 6240233 1 Application TOP TID 09/24/20 18 2018 Inactive levmetamfetamine 50 mg nasal inhaler RxNorm: 1 Unit(s) NASAL Q3-4H 09/24/20 18 2017 Inactive sertraline 50 mg tablet RxNorm: 703537 1 Tablet(s) PO daily 09/09/20 18 2018 Inactive Please note dose trazodone 50 mg tablet RxNorm: 579388 1 Tablet(s) PO QHS 09/06/20 18 2018 Inactive sertraline 50 mg tablet RxNorm: 452718 1 Tablet(s) PO daily 09/06/20 18 2017 Inactive amoxicillin 500 mg tablet RxNorm: 215096 1 Tablet(s) PO Q12H 08/31/20 18 2017 Inactive albuterol sulfate 2.5 mg/3 mL (0.083 %) solution for nebulization RxNorm: 553509 1 Vial INH QID 08/10/20 18 2018 Inactive 60/box. Please do not fill early. Please do not auto refill. Prozac 10 mg capsule RxNorm: 581436 1 Capsule(s) PO daily 08/09/20 18 2017 Inactive buspirone 7.5 mg tablet RxNorm: 590417 1 Tablet(s) PO BID 08/09/20 18 2018 Inactive gabapentin 300 mg capsule RxNorm: 935853 1 Capsule(s) PO TID as needed 08/01/20 18 2018 Inactive hydrochlorothiazide 12.5 mg tablet RxNorm: 588584 1 Tablet(s) PO QAM 08/01/20 18 2018 Inactive ranitidine 150 mg tablet RxNorm: 377618 1 Tablet(s) PO BID 08/01/20 18 2018 Inactive Macrobid 100 mg capsule RxNorm: 638973 1 Capsule(s) PO Q12H 06/21/20 18 2017 Inactive Singulair 10 mg tablet RxNorm: 229922 1 Tablet(s) PO daily 06/14/20 18 2018 Inactive Ventolin HFA 90 mcg/actuation aerosol inhaler RxNorm: 0565623 2 Puff(s) INH QID 06/14/20 18 2018 Inactive Singulair 10 mg tablet RxNorm: 659264 1 Tablet(s) PO daily 06/14/20 18 2017 Inactive buspirone 7.5 mg tablet RxNorm: 693801 1 Tablet(s) PO BID 06/14/20 18 2017 Inactive Prozac 10 mg capsule RxNorm: 371479 1 Capsule(s) PO daily 06/14/20 18 2017 Inactive Neilmed Pediatric Sinus Rinse Refill packet RxNorm: 1 Unit Dose NASAL PRN 05/31/20 18 2021 Inactive diclofenac sodium 75 mg tablet,delayed release RxNorm: 929430 1 Tablet(s) PO BID 05/31/20 18 2017 Inactive lisinopril 2.5 mg tablet RxNorm: 532149 1 Tablet(s) PO daily 05/31/20 18 2017 Inactive metoprolol succinate ER 50 mg tablet,extended release 24 hr RxNorm: 803302 1 Tablet(s) PO daily 05/31/20 18 2017 Inactive levothyroxine 50 mcg tablet RxNorm: 822429 1 Tablet(s) PO daily 05/31/20 18 2017 Inactive TRUEplus Lancets 30 gauge RxNorm: 1 Lancets Miscellaneous QAM 05/31/20 18 2017 Inactive 100/box Ventolin HFA 90 mcg/actuation aerosol inhaler RxNorm: 256287 2 Puff(s) INH QID 05/31/20 18 2017 Inactive Aleve 220 mg capsule RxNorm: 9700465 1 Capsule(s) PO BID 05/31/20 18 2018 Inactive ranitidine 150 mg tablet RxNorm: 334897 1 Tablet(s) PO BID 05/31/20 18 2017 Inactive gabapentin 300 mg capsule RxNorm: 842430 1 Capsule(s) PO TID as needed 05/31/20 18 2017 Inactive atorvastatin 20 mg tablet RxNorm: 398357 1 Tablet(s) PO QHS 05/31/20 18 2017 Inactive True Metrix Glucose Test Strip RxNorm: 1 Test Strips Miscellaneous QA 05/31/20 18 2017 Inactive 50/container Calcium 600-D3 Plus 600 mg calcium-800 unit-50 mg tablet RxNorm: 1 Tablet(s) PO daily take an additonal tablet for itching. 05/31/20 18 2017 Inactive hydrochlorothiazide 12.5 mg tablet RxNorm: 702803 1 Tablet(s) PO QAM 05/31/20 18 2017 Inactive Flintstones Complete (iron) 18 mg iron chewable tablet RxNorm: 1 Tablet(s) PO daily 05/31/20 18 2017 Inactive d-mannose oral powder RxNorm: PO 18 2021 Inactive True Metrix Glucose Meter RxNorm: miscellaneous 08/17/20 19 2018 Inactive sertraline 50 mg tablet RxNorm: 480099 1 Tablet(s) PO daily 11/28/19 20 2019 Inactive loperamide 2 mg tablet RxNorm: 634668 oral 09/29/20 19 2018 Inactive Symbicort 160 mcg-4.5 mcg/actuation HFA aerosol inhaler RxNorm: 3364429 2 Puff(s) INH BID 08/17/20 19 2018 Inactive Medication Administered No Medication Administered data Procedures Procedure Codes Date Hypertension CPT-4: HTN 04/01/2021 Tobacco Assessment/Screening CPT-4: TCA 08/2021 Patient Health Questionnaire CPT-4: DPHQ 08/2021 Mini Mental State Exam CPT-4: DMMA 1 Annual Wellness Visit (Subsequent Visit) CPT-4: G0439 01/13/2021 Advanced Care Planning CPT-4: VACP 1 Fall Risk Assessment SNOMED CT: 01870614 4 CPT-4: DFRA01/13/2021emmes Fany AssessmentCPT-4: DSWA12/17/2020Urinalysis, dip stickCPT-4: 6875406Patient Health QuestionnaireCPT-4: DPHQ 08/19/2020ElectrocardiogramCPT-4: 8551029Tobacco Assessment/Screening CPT-4: TCA01/01/2020Fall Risk AssessmentSNOMED CT: 759237039 CPT-4: DFRA01/01/2020Functional AssessmentCPT-4: DFA01/01/2020[place] Fany AssessmentCPT-4: DSWA11/28/2019Patient Health QuestionnaireCPT-4: DPHQ11/28/2019 [place] Fany AssessmentCPT-4: DSWA10/17/2019HypertensionCPT-4: HTN10/17/[address]: 497690901 CPT-4: DFRA09/19/2019Functional AssessmentCPT-4: DFA111/20/2018Urinalysis, dip stickCPT-4: 4976836Tobacco Assessment/ScreeningCPT-4: TCA05/24/2019 Patient Health QuestionnaireCPT-4: DPHQ05/24/2019AHA/REBECCA Classification AssessmentCPT-4: DAHA04/25/2019Controlled Substance ReportCPT-4: CTRSU04/25/2019 Urinalysis, dip stickCPT-4: 755742203/28/2019Urinalysis, dip stickCPT-4: 69037 03/28/20190937D5Z-CkrzkoiicbdofspSRE-1: 20391JepyibeJ3P-UmpzcgbafqrsqmmPJV-4: 19818 XwfmwwbC5H-QecskhepijwfpjvYAD-9: 07976WxqphvuA4F-CfxxoffjivtwzpqXLF-4: 25603 EhzdgacI0X-AsixzdmemdujjxzUNS-5: 88065KnadkpvB4D-JurtpenmxmunxpeHBF-0: 11710 CngywkkB9R-UrpvuttqnejvgiuPEC-9: 54943NvklwavNnzkpgfyhm ReferralSNOMED CT: 664285398 CPT-4: I74Vegcskn Reason For Visit No Reason For Visit data Plan of Care Planned Activity Notes Codes Status Date Referral: Pending Gynecology Referral Informatio n Referral ProcessedReferral: Pending Pulmonology Referral InformationReferralProcessed Referral: Pending Psychiatry Referral InformationReferralInitiatedReferral: Pending Respiratory Services Referral InformationReferralInitiatedReferral: Pending Ophthalmology Referral InformationReferralInitiatedReferral: [facility] WPtel: [address] [id number] USWriter placed a call out to the patient to notify her that it has been recommended that she be seenby a urologist. Patient agreed to be seen, does not have a provider of choice and no transportationissues. Bereavement Coordinator faxed referral and clinical notes to [facility] in [place], [place] near the patient's home. Patient to [...] seen and prefers a provider in the [place] or [place] area. Bereavement Coordinator placed a call out to everyone listed in the area and the only location that was able to accept the patient's insurance was [address] [address] and spoke with Maylin. Maylin asked that the patient's referral, face sheet and visit notes be faxed to . Bereavement Coordinator faxed over requested documents. Patient appointment confirmation letter generated and mailed to her home address. Patient to call to schedule an appointment.ProcessedReferral: [facility] WPtel: [address] [id number] USPatient notified that it has been advised that she be seen by Neurology. Patient agreed to be seen and prefers to be seen by a provider in the [place], [place] area. Patient denies any concerns with transportation, and prefers to schedule her own appointment. Bereavement Coordinator [facility] and spoke with Neeraj [...]
--- OUTSIDE RECORDS SUMMARY | 2023-12-07 02:16 | XMS_ITS | CCD ---
Author Name Leena Culver NP Address [address] [place] [address] [address] [place] [address] Phone [facility] Phone Care Team Providers Care Television Repairman Name Role Phone Anna Culver NP Primary Care Provider Unav ailable Unavailable Chronic Care Management Unavaila ble Summary Purpose DataExchange Insurance Providers Payer name Policy type / Coverage type Covered green party ID Effective Begin Date Effective End Date SUKI MAYO [id number] Unknown Unknown Family history Mother Diagnosis Age [...] 05/31/2018 Education level Unknown Some High School 10th05/31/20185396EkosiaquseBauzvjmQakiwdagvi38/29/2018Tobacco historySNOMED CT: 484493463Fev never smoked or chewed igjywkj1605/31/2018Alcohol historySNOMED CT: 021002671Ygxzr drinks rbmhbsr8105/31/2018Has the patient ever used illegal drugs? UnknownHas never used illegal drugs05/31/2018DNR Order/ Advanced Directive UnknownFull Code05/31/2018 Allergies, Adverse Reactions, Alerts Substance Reaction Codes Entered Date Inactivated Date Status OxyContin itch, RxNorm: 718370 01/13/2021 No Inactive Da te Active *No known food allergies Vivzmcv4509/06/2018No Inactive DateActiveMethylprednisolonehivesRxNorm: 6902 09/06/2018No Inactive DateActive Problems Condition Codes Effective Dates Condition St atus Anorexia ICD-10: R63.0 ICD-9: 783.003/1ActiveChronic kidney disease, stage 2 (mild)ICD-10: N18.2 ICD-9: [...] enzymesICD-10: R74.8 ICD-9: 790.504/ctiveHyperlipidemia, unspecifiedICD-10: E78.5 ICD-9: 272.408/ActiveGERD (gastroesophageal reflux disease)ICD-10: K21.9 ICD-9: 530.8112ActiveHistory of bladder surgeryICD-10: Z98.890 ICD-9: V45.8904ctiveUrinary retention with incomplete bladder emptying ICD-10: R33.9 ICD-9: 788.2104/ctive(Z00.01-V70.0) Encounter for general adult medical examination with abnormal findingsICD-10: Z00.01 ICD-9: V70.004/13/2021Active(Z13.31-V79.0) Encounter for screening for depressionICD-10: Z13.31 ICD-9: V79.004/1ActiveEncounter for immunizationICD-10: Z23 ICD-9: V04.8109/06/2020InactiveEssential (primary) hypertensionICD-10: I10 ICD-9: 401.901/10/2018InactiveApnea, not elsewhere classifiedICD-10: R06.81 ICD-9: 786.0305/10/2018InactiveChest pain, unspecifiedICD-10: R07.9 ICD-9: 786.5002/InactiveChronic kidney disease, unspecifiedICD-10: N18.9 ICD-9: 585.909/InactiveDiarrheaICD-10: R19.7 ICD-9: 787.9112/InactiveEncounter for immunizationICD-10: Z23 ICD-9: V03.907/InactiveEncounter for preprocedural cardiovascular examinationICD-10: Z01.810 ICD-9: V72.8106/InactiveHeadacheICD-10: R51 ICD-9: 784.001/10/2018InactiveOther detention (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ICD-10: Z79.899 ICD-9: V58.6907/InactiveType 2 [...] SeenICD-10: UXZ.01 ICD-9: XZ0.107/ActiveDyspnea, unspecifiedICD-10: R06.00 ICD-9: 786.0905ActiveAbnormal electrocardiogram [ECG] [EKG]ICD-10: R94.31 ICD-9: 794.3108ActiveEdema, unspecifiedICD-10: R60.9 ICD-9: 782.310ActiveLong term (current) use of non-steroidal anti- inflammatories (NSAID)ICD-10: Z79.1 ICD-9: V58.64006/13/2018Active Medications Medication Codes Instructions Start Date Stop Date Status Fill Instructions omeprazole 20 mg capsule,delayed release RxNorm: 466223 1 Capsule(s) Oral every evening 04/03/20 21 2020 Inactive sertraline 100 mg tablet RxNorm: 135863 2 Tablet(s) Oral every day 03/13/20 21 2020 Inactive levothyroxine 50 mcg tablet RxNorm: 018378 TAKE (1) TABLET BY MOUTH DAILY 02/04/20 21 2020 Inactive metformin 500 mg tablet RxNorm: 117472 1 Tablet(s) Oral two times a day take with 500mg to equal 1000mg 01/14/20 21 2020 Inactive gabapentin 300 mg capsule RxNorm: 193777 TAKE 1 CAPSULE BY MOUTH THREE TIMES A DAY 01/14/202020 Inactive lisinopril 2.5 mg tablet RxNorm: 484006 TAKE 1 TABLET BY MOUTH DAILY 01/06/202020 Inactive gabapentin 300 mg capsule RxNorm: 390071 TAKE 1 CAPSULE BY MOUTH THREE TIMES A DAY 01/06/202020 Inactive Singulair 10 mg tablet RxNorm: 799638 TAKE (1) TABLET BY MOUTH DAILY 01/06/20 21 2020 Inactive metformin 1,000 mg tablet RxNorm: 827651 1 Tablet(s) Oral two times a day 01/06/20 21 2020 Inactive atorvastatin 40 mg tablet RxNorm: 356918 1 Tablet(s) Oral every day 12/06/19 21 2020 Inactive omeprazole 20 mg capsule,delayed release RxNorm: 266455 1 Capsule(s) Oral every evening 11/24/19 21 2020 Inactive famotidine 10 mg tablet RxNorm: 063525 1 Tablet(s) Oral every morning 11/24/19 21 2020 Inactive Alcohol Prep Pads RxNorm: 011249 USE EACH MORNING 10/14/19 21 2020 Inactive omeprazole 20 mg capsule,delayed release RxNorm: 795883 1 Capsule(s) Oral two times a day 10/13/19 21 2021 Inactive omeprazole 20 mg capsule,delayed release RxNorm: 235991 TAKE 1 CAPSULE BY MOUTH EVERY DAY 10/08/19 21 2021 Inactive Macrobid 100 mg capsule RxNorm: 299673 1 Capsule(s) Oral every 12 hours with food 10/01/20 20 2020 Inactive omeprazole 20 mg capsule,delayed release RxNorm: 375355 1 Capsule(s) Oral two times a day 09/24/20 20 2021 Inactive metformin 1,000 mg tablet RxNorm: 870461 1 Tablet(s) Oral two times a day 08/19/20 20 2020 Inactive start on September 11, 2020 metformin 500 mg tablet RxNorm: 224260 1 Tablet(s) Oral two times a day take with 500mg to equal 1000mg 08/19/20 20 2019 Inactive gabapentin 300 mg capsule RxNorm: 489371 TAKE 1 CAPSULE BY MOUTH THREE TIMES DAILY 07/11/20 20 2020 Inactive cetirizine 10 mg tablet RxNorm: 9121313 TAKE (1) TABLET BY MOUTH DAILY 07/11/20 20 2020 Inactive metformin 500 mg tablet RxNorm: 217466 1 Tablet(s) Oral two times a day 07/08/20 20 2019 Inactive loperamide 2 mg tablet RxNorm: 809506 1 Tablet(s) Oral as needed take one tablet after each loose stool, maximum of 8 tablets in 24 hours 06/24/20 20 2021 Inactive Sudafed 12 Hour 120 mg tablet,extended release RxNorm: 7616775 TAKE 1 TABLET BY MOUTH EVERY 12 HOURS NEEDED 06/11/20 20 2019 Inactive hydrochlorothiazide 25 mg tablet RxNorm: 207835 TAKE (1) TABLET BY MOUTH EVERY DAY 06/11/20 20 2019 Inactive omeprazole 20 mg capsule,delayed release RxNorm: 357772 TAKE 1 CAPSULE BY MOUTH EVERY DAY 05/14/20 20 2020 Inactive metformin 500 mg tablet RxNorm: 027150 1 Tablet(s) Oral every day 05/12/20 20 2019 Inactive True Metrix Glucose Test Strip RxNorm: 1 Test Strips Miscellaneous two times a day as needed 04/17/20 No Stop Date Active metformin 500 mg tablet RxNorm: 781224 1 Tablet(s) Oral every day 04/17/20 20 2019 Inactive diclofenac sodium 75 mg tablet,delayed release RxNorm: 848921 1 Tablet(s) PO BID 04/14/20 20 2021 Inactive This refill negates all other refills of this medication Sudafed 12 Hour 120 mg tablet,extended release RxNorm: 2386537 TAKE 1 TABLET BY MOUTH EVERY 12 HOURS NEEDED 03/14/20 20 2019 Inactive True Metrix Glucose Test Strip RxNorm: 1 Test Strips Miscellaneous every morning 03/13/20 20 2019 Inactive 100/container True Metrix Glucose Test Strip RxNorm: 1 Test Strips Miscellaneous QAM 02/22/20 20 2019 Inactive 100/container loperamide 2 mg tablet RxNorm: 793216 1 Tablet(s) Oral as needed take one tablet after each loose stool, maximum of 8 tablets in 24 hours 02/22/20 20 2019 Inactive cetirizine 10 mg tablet RxNorm: 3118841 1 Tablet(s) PO daily 01/17/20 20 2019 Inactive loperamide 2 mg tablet RxNorm: 887930 1 Tablet(s) Oral as needed take one tablet after each loose stool, maximum of 8 tablets in 24 hours 01/17/20 20 2019 Inactive quetiapine 100 mg tablet RxNorm: 857886 1 Tablet(s) Oral every night at bedtime 01/17/20 20 2019 Inactive levothyroxine 50 mcg tablet RxNorm: 392857 1 Tablet(s) PO daily 01/17/20 20 2020 Inactive gabapentin 300 mg capsule RxNorm: 071271 1 Capsule(s) PO TID 01/17/20 20 2019 Inactive levothyroxine 50 mcg tablet RxNorm: 249005 1 Tablet(s) PO daily 01/15/20 20 2019 Inactive lisinopril 2.5 mg tablet RxNorm: 261823 1 Tablet(s) PO daily 01/15/20 20 2020 Inactive gabapentin 300 mg capsule RxNorm: 391277 1 Capsule(s) PO TID 01/15/20 20 2019 Inactive cetirizine 10 mg tablet RxNorm: 0520599 1 Tablet(s) PO daily 01/15/20 20 2019 Inactive Singulair 10 mg tablet RxNorm: 377671 1 Tablet(s) PO daily 01/15/20 20 2020 Inactive gentamicin 0.3 % eye drops RxNorm: 856954 1 Drop(s) ophthalmic (eye) four times a day 12/29/19 20 2019 Inactive gentamicin 0.3 % eye drops RxNorm: 331177 1 Drop(s) ophthalmic (eye) four times a day 12/29/19 20 2019 Inactive gentamicin 0.3 % eye drops RxNorm: 980335 1 Drop(s) ophthalmic (eye) four times a day 12/29/19 20 2019 Inactive hydrochlorothiazide 25 mg tablet RxNorm: 191976 1 Tablet(s) Oral every day 12/21/19 20 2019 Inactive Sudafed 12 Hour 120 mg tablet,extended release RxNorm: 4933897 TAKE (1) TABLET BY MOUTH EVERY 12 HOURS NEEDED 12/21/19 20 2019 Inactive loperamide 2 mg tablet RxNorm: 985482 1 Tablet(s) Oral as needed take one tablet after each loose stool, maximum of 8 tablets in 24 hours 12/11/19 20 2019 Inactive loperamide 2 mg tablet RxNorm: 915291 1 Tablet(s) Oral as needed take one tablet after each loose stool, maximum of 8 tablets in 24 hours 12/11/19 20 2019 Inactive atorvastatin 40 mg tablet RxNorm: 629296 1 Tablet(s) Oral every day 11/29/19 20 2020 Inactive quetiapine 100 mg tablet RxNorm: 500531 1 Tablet(s) Oral every night at bedtime 11/28/19 20 2019 Inactive sertraline 100 mg tablet RxNorm: 984777 1 Tablet(s) Oral 11/28/19 20 2019 Inactive omeprazole 20 mg capsule,delayed release RxNorm: 582169 1 Capsule(s) Oral every day 11/20/19 20 2019 Inactive amoxicillin 250 mg capsule RxNorm: 811020 1 Capsule(s) Oral three times a day 11/07/19 20 2019 Inactive multivitamin with iron-mineral tablet RxNorm: 1 Tablet(s) Oral every day 10/29/19 20 2021 Inactive cetirizine 10 mg tablet RxNorm: 7296125 1 Tablet(s) PO daily 10/20/19 20 2019 Inactive This refill negates all other refills of this medication. Please do not auto refill Singulair 10 mg tablet RxNorm: 893456 1 Tablet(s) PO daily 10/20/19 20 2019 Inactive This refill negates all other refills of this medication gabapentin 300 mg capsule RxNorm: 148953 1 Capsule(s) PO TID 10/20/19 20 2019 Inactive lisinopril 2.5 mg tablet RxNorm: 208392 1 Tablet(s) PO daily 10/20/19 20 2019 Inactive levothyroxine 50 mcg tablet RxNorm: 332491 1 Tablet(s) PO daily 10/20/19 20 2019 Inactive This refill negates all other refills of this medication fenugreek seed extract 500 mg capsule RxNorm: 1 Capsule(s) Oral three times a day 10/17/19 20 2021 Inactive hydrochlorothiazide 25 mg tablet RxNorm: 785655 1 Tablet(s) Oral every day 10/17/19 20 2019 Inactive Alcohol Prep Pads RxNorm: 243662 1 Patch TOP QAM 10/16/19 20 2020 Inactive loperamide 2 mg tablet RxNorm: 415675 1 Tablet(s) Oral as needed take one [...] 2019 Inactive hydrochlorothiazide 25 mg tablet RxNorm: 364613 1 Tablet(s) Oral every day 09/19/20 19 2019 Inactive Sudafed 12 Hour 120 mg tablet,extended release RxNorm: 5490350 1 Tablet(s) Oral every 12 hours as needed 09/11/20 19 2018 Inactive omeprazole 20 mg capsule,delayed release RxNorm: 637721 1 Capsule(s) Oral every day 09/07/20 19 2019 Inactive Sudafed 12 Hour 120 mg tablet,extended release RxNorm: 8421269 1 Tablet(s) Oral every 12 hours as needed 09/04/20 19 2018 Inactive pantoprazole 40 mg tablet,delayed release RxNorm: 925797 1 Tablet(s) Oral every day 08/24/20 19 2018 Inactive discontinue any other H2Blkr. and PPI albuterol sulfate 2.5 mg/3 mL (0.083 %) solution for nebulization RxNorm: 563927 1 Vial Inhalation every four hours as needed as needed for dyspnea 08/17/20 19 2019 Inactive 60/box. This refill negates all other refills of this medication. Please do not fill early. Please do not auto refill. Symbicort 160 mcg-4.5 mcg/actuation HFA aerosol inhaler RxNorm: 4578107 2 Puff(s) INH BID 08/17/20 No Stop Date Active Alcohol Prep Pads RxNorm: 151004 1 Patch TOP QAM 08/17/20 19 2019 Inactive Ventolin HFA 90 mcg/actuation aerosol inhaler RxNorm: 395373 2 Puff(s) INH QID 08/09/20 19 2019 Inactive Please do not fill early. Please do not auto refill. This refill negates all other refills of this medication True Metrix Glucose Test Strip RxNorm: 1 Test Strips Miscellaneous QAM 08/09/20 19 2019 Inactive 100/container atorvastatin 40 mg tablet RxNorm: 394930 1 Tablet(s) Oral every day 07/04/20 19 2019 Inactive levmetamfetamine 50 mg nasal inhaler RxNorm: 1 Unit(s) NASAL Q3-4H Do not use more than every 3 hours or 8 times/24hours 06/26/20 19 2021 Inactive Please do not auto refill. This refill negates all other refills of this medication buspirone 7.5 mg tablet RxNorm: 558030 1 Tablet(s) PO BID 06/26/20 19 2020 Inactive This refill negates all other refills of this medication hydrochlorothiazide 12.5 mg tablet RxNorm: 739716 1 Tablet(s) PO QAM 06/26/20 19 2019 Inactive Ventolin HFA 90 mcg/actuation aerosol inhaler RxNorm: 490187 2 Puff(s) INH QID 06/26/20 19 2018 Inactive Please do not fill early. Please do not auto refill. This refill negates all other refills of this medication Singulair 10 mg tablet RxNorm: 447962 1 Tablet(s) PO daily 06/26/20 19 2019 Inactive This refill negates all other refills of this medication cetirizine 10 mg tablet RxNorm: 4605663 1 Tablet(s) PO daily 06/26/20 19 2019 Inactive This refill negates all other refills of this medication. Please do not auto refill levothyroxine 50 mcg tablet RxNorm: 857069 1 Tablet(s) PO daily 06/26/20 19 2019 Inactive This refill negates all other refills of this medication diclofenac sodium 75 mg tablet,delayed release RxNorm: 476594 1 Tablet(s) PO BID 06/26/20 19 2019 Inactive This refill negates all other refills of this medication ranitidine 150 mg tablet RxNorm: 471725 1 Tablet(s) PO BID 06/26/20 19 2018 Inactive This refill negates all other refills of this medication Calcium 600-D3 Plus (mag-zinc) 600 mg calcium-800 unit-50 mg tablet RxNorm: 1 Tablet(s) PO daily take an additonal tablet for itching. 06/26/20 19 2018 Inactive This refill negates all other refills of this medication albuterol sulfate 2.5 mg/3 mL (0.083 %) solution for nebulization RxNorm: 823809 1 Vial INH QID 06/26/20 19 2018 Inactive 60/box. This refill negates all other refills of this medication. Please do not fill early. Please do not auto refill. lisinopril 2.5 mg tablet RxNorm: 086303 1 Tablet(s) PO daily 06/21/20 19 2019 Inactive gabapentin 300 mg capsule RxNorm: 988714 1 Capsule(s) PO TID 06/21/20 19 2019 Inactive atorvastatin 20 mg tablet RxNorm: 432215 1 Tablet(s) PO QHS 06/07/20 19 2018 Inactive This refill negates all other refills of this medication TRUEplus Lancets 30 gauge RxNorm: 1 Lancets Miscellaneous QAM 05/29/20 19 2018 Inactive 100/box gabapentin 300 mg capsule RxNorm: 606050 1 Capsule(s) PO TID 05/03/20 19 2018 Inactive Flintstones Complete (iron) 18 mg iron chewable tablet RxNorm: 1 Tablet(s) PO daily 04/04/20 19 2021 Inactive This refill negates all other refills of this medication gabapentin 300 mg capsule RxNorm: 400053 1 Capsule(s) PO TID as needed 02/01/20 19 2018 Inactive True Metrix Glucose Test Strip RxNorm: 1 Test Strips Miscellaneous QAM 02/01/20 19 2018 Inactive 100/container Alcohol Prep Pads RxNorm: 805412 1 Patch TOP QAM 02/01/20 19 2018 Inactive TRUEplus Lancets 30 gauge RxNorm: 1 Lancets Miscellaneous QAM 02/01/20 19 2018 Inactive 100/box lisinopril 2.5 mg tablet RxNorm: 713490 1 Tablet(s) PO daily 12/28/19 19 2018 Inactive ranitidine 150 mg tablet RxNorm: 939840 1 Tablet(s) PO BID 10/21/192018 Inactive This refill negates all other refills of this medication albuterol sulfate 2.5 mg/3 mL (0.083 %) solution for nebulization RxNorm: 220831 1 Vial INH QID 10/21/19 19 2018 [...] this medication gabapentin 300 mg capsule RxNorm: 033043 1 Capsule(s) PO TID as needed 10/21/19 19 2018 Inactive atorvastatin 20 mg tablet RxNorm: 061829 1 Tablet(s) PO QHS 10/21/19 19 2018 Inactive This refill negates all other refills of this medication trazodone 50 mg tablet RxNorm: 294924 1 Tablet(s) PO QHS 10/21/19 19 2018 Inactive This refill negates all other refills of this medication Ventolin HFA 90 mcg/actuation aerosol inhaler RxNorm: 634674 2 Puff(s) INH QID 10/21/19 19 2018 [...] this medication Singulair 10 mg tablet RxNorm: 761949 1 Tablet(s) PO daily 10/21/19 19 2018 Inactive This refill negates all other refills of this medication buspirone 7.5 mg tablet RxNorm: 243961 1 Tablet(s) PO BID 10/21/192018 Inactive This refill negates all other refills of this medication diclofenac sodium 75 mg tablet,delayed release RxNorm: 357596 1 Tablet(s) PO BID 10/21/19 19 2018 Inactive This refill negates all other refills of this medication hydrochlorothiazide 12.5 mg tablet RxNorm: 174083 1 Tablet(s) PO QAM 10/21/19 19 2018 Inactive metoprolol succinate ER 50 mg tablet,extended release 24 hr RxNorm: 790734 1 Tablet(s) PO daily 10/21/19 19 2018 Inactive This refill negates all other refills of this medication levothyroxine 50 mcg tablet RxNorm: 652939 1 Tablet(s) PO daily 10/21/192018 Inactive This refill negates all other refills of this medication cetirizine 10 mg tablet RxNorm: 0616897 1 Tablet(s) PO daily 10/21/192018 Inactive This refill negates all other refills of this medication. Please do not auto refill Flintstones Complete (iron) 18 mg iron chewable tablet RxNorm: 1 Tablet(s) PO daily 10/21/192018 Inactive This refill negates all other refills of this medication buspirone 7.5 mg tablet RxNorm: 432212 1 Tablet(s) PO BID 10/12/19 19 2018 Inactive cetirizine 10 mg tablet RxNorm: 5604208 1 Tablet(s) PO daily 09/28/202018 Inactive Guaiasorb DM 10 mg-100 mg/5 mL oral liquid RxNorm: 386480 10 Milliliter(s) PO As needed every 4 hr 09/24/20 18 2018 Inactive Vicks Vaporub 4.7 %-1.2 %-2.6 % topical ointment RxNorm: 2841423 1 Application TOP TID 09/24/20 18 2018 Inactive levmetamfetamine 50 mg nasal inhaler RxNorm: 1 Unit(s) NASAL Q3-4H 09/24/20 18 2017 Inactive sertraline 50 mg tablet RxNorm: 023013 1 Tablet(s) PO daily 09/09/20 18 2018 Inactive Please note dose trazodone 50 mg tablet RxNorm: 857203 1 Tablet(s) PO QHS 09/06/20 18 2018 Inactive sertraline 50 mg tablet RxNorm: 398449 1 Tablet(s) PO daily 09/06/20 18 2017 Inactive amoxicillin 500 mg tablet RxNorm: 444385 1 Tablet(s) PO Q12H 08/31/20 18 2017 Inactive albuterol sulfate 2.5 mg/3 mL (0.083 %) solution for nebulization RxNorm: 563258 1 Vial INH QID 08/10/20 18 2018 Inactive 60/box. Please do not fill early. Please do not auto refill. Prozac 10 mg capsule RxNorm: 824198 1 Capsule(s) PO daily 08/09/20 18 2017 Inactive buspirone 7.5 mg tablet RxNorm: 054079 1 Tablet(s) PO BID 08/09/20 18 2018 Inactive gabapentin 300 mg capsule RxNorm: 020313 1 Capsule(s) PO TID as needed 08/01/20 18 2018 Inactive hydrochlorothiazide 12.5 mg tablet RxNorm: 566221 1 Tablet(s) PO QAM 08/01/20 18 2018 Inactive ranitidine 150 mg tablet RxNorm: 689446 1 Tablet(s) PO BID 08/01/20 18 2018 Inactive Macrobid 100 mg capsule RxNorm: 098673 1 Capsule(s) PO Q12H 06/21/20 18 2017 Inactive Singulair 10 mg tablet RxNorm: 259198 1 Tablet(s) PO daily 06/14/20 18 2018 Inactive Ventolin HFA 90 mcg/actuation aerosol inhaler RxNorm: 5018923 2 Puff(s) INH QID 06/14/20 18 2018 Inactive Singulair 10 mg tablet RxNorm: 735844 1 Tablet(s) PO daily 06/14/20 18 2017 Inactive buspirone 7.5 mg tablet RxNorm: 543065 1 Tablet(s) PO BID 06/14/20 18 2017 Inactive Prozac 10 mg capsule RxNorm: 596031 1 Capsule(s) PO daily 06/14/20 18 2017 Inactive Neilmed Pediatric Sinus Rinse Refill packet RxNorm: 1 Unit Dose NASAL PRN 05/31/20 18 2021 Inactive diclofenac sodium 75 mg tablet,delayed release RxNorm: 007411 1 Tablet(s) PO BID 05/31/20 18 2017 Inactive lisinopril 2.5 mg tablet RxNorm: 220024 1 Tablet(s) PO daily 05/31/20 18 2017 Inactive metoprolol succinate ER 50 mg tablet,extended release 24 hr RxNorm: 968424 1 Tablet(s) PO daily 05/31/20 18 2017 Inactive levothyroxine 50 mcg tablet RxNorm: 956921 1 Tablet(s) PO daily 05/31/20 18 2017 Inactive TRUEplus Lancets 30 gauge RxNorm: 1 Lancets Miscellaneous QAM 05/31/20 18 2017 Inactive 100/box Ventolin HFA 90 mcg/actuation aerosol inhaler RxNorm: 177698 2 Puff(s) INH QID 05/31/20 18 2017 Inactive Aleve 220 mg capsule RxNorm: 5912642 1 Capsule(s) PO BID 05/31/20 18 2018 Inactive ranitidine 150 mg tablet RxNorm: 225150 1 Tablet(s) PO BID 05/31/20 18 2017 Inactive gabapentin 300 mg capsule RxNorm: 769143 1 Capsule(s) PO TID as needed 05/31/20 18 2017 Inactive atorvastatin 20 mg tablet RxNorm: 867097 1 Tablet(s) PO QHS 05/31/20 18 2017 Inactive True Metrix Glucose Test Strip RxNorm: 1 Test Strips Miscellaneous QA 05/31/20 18 2017 Inactive 50/container Calcium 600-D3 Plus 600 mg calcium-800 unit-50 mg tablet RxNorm: 1 Tablet(s) PO daily take an additonal tablet for itching. 05/31/20 18 2017 Inactive hydrochlorothiazide 12.5 mg tablet RxNorm: 948004 1 Tablet(s) PO QAM 05/31/20 18 2017 Inactive Flintstones Complete (iron) 18 mg iron chewable tablet RxNorm: 1 Tablet(s) PO daily 05/31/20 18 2017 Inactive d-mannose oral powder RxNorm: PO 18 2021 Inactive True Metrix Glucose Meter RxNorm: miscellaneous 08/17/20 19 2018 Inactive sertraline 50 mg tablet RxNorm: 899674 1 Tablet(s) PO daily 11/28/19 20 2019 Inactive loperamide 2 mg tablet RxNorm: 613546 oral 09/29/20 19 2018 Inactive Symbicort 160 mcg-4.5 mcg/actuation HFA aerosol inhaler RxNorm: 0122576 2 Puff(s) INH BID 08/17/20 19 2018 Inactive Medication Administered No Medication Administered data Procedures Procedure Codes Date Hypertension CPT-4: HTN 04/01/2021 Tobacco Assessment/Screening CPT-4: TCA 08/2021 Patient Health Questionnaire CPT-4: DPHQ 08/2021 Mini Mental State Exam CPT-4: DMMA 1 Annual Wellness Visit (Subsequent Visit) CPT-4: G0439 01/13/2021 Advanced Care Planning CPT-4: VACP Fall Risk Assessment SNOMED CT: 10442406 4 CPT-4: DFRA01/13/2021emmes Fany AssessmentCPT-4: DSWA12/17/2020Urinalysis, dip stickCPT-4: 9545790Patient Health QuestionnaireCPT-4: DPHQ 08/19/2020ElectrocardiogramCPT-4: 0888088Tobacco Assessment/Screening CPT-4: TCA01/01/2020Fall Risk AssessmentSNOMED CT: 058970440 CPT-4: DFRA01/01/2020Functional AssessmentCPT-4: DFA01/01/2020Semmes Fany AssessmentCPT-4: DSWA11/28/2019Patient Health QuestionnaireCPT-4: DPHQ11/28/2019 Macon Fany AssessmentCPT-4: DSWA10/17/2019HypertensionCPT-4: HTN10/17/[address]: 760351200 CPT-4: DFRA09/19/2019Functional AssessmentCPT-4: DFA111/20/2018Urinalysis, dip stickCPT-4: 1671115Tobacco Assessment/ScreeningCPT-4: TCA05/24/2019 Patient Health QuestionnaireCPT-4: DPHQ05/24/2019AHA/REBECCA Classification AssessmentCPT-4: DAHA04/25/2019Controlled Substance ReportCPT-4: CTRSU04/25/2019 Urinalysis, dip stickCPT-4: 179506103/28/2019Urinalysis, dip stickCPT-4: 81027 03/28/20194752G5N-ZtqlfxkytbozndwJRQ-1: 87989ZbfvufkK3G-OthwxuilidmkuehUSZ-7: 07419 EdfhlzyH7P-NcfyfnmzofsuhfmPJK-1: 29112DjwzjirE7N-SjjsnkvfhtpvgfeUWW-8: 51672 YemjdcuD5F-TwdnikhnbtxivozEIZ-5: 00564YnjrvisI1W-KplwecnokgpxdrwRGI-5: 68224 AakymblX0N-FqnwjbagriwlgyfSLB-9: 91079RszsyviUaprtwaqcn ReferralSNOMED CT: 723087535 CPT-4: Z34Kqyhynt Reason For Visit Reason For Visit Effective Dates Notes neurologic complaint 04/28/2021 diabetes mellitus 04/28/2021 Encounters Encounter Performer Location Location Address Codes Magdi e ([id number]) (EST PT) DETAILED TE [facility] VISIT Diagnosis: Syncope and collapse[ICD10: R55] Diagnosis: Type 2 diabetes mellitus with peripheral neuropathy[ICD10: E11.42] Diagnosis: Family history of seizures[ICD10: Z84.89] Diagnosis: Hypertensive heart disease with heart failure[ICD10: I11.0] Diagnosis: Chronic kidney disease, stage 2 (mild)[ICD10: N18.2] Diagnosis: Anorexia[ICD10: R63.0]Anna Bourgeois [id number] [place] [address] 93407MCH-3: [id number] Plan of Care Planned Activity Notes Codes Status Date Patient Education: Patient Medication Summary Ncwbgcpvr24/27/2021atient Education: AfpkeaqwOhxjrdzdc93/27/2021are Plan: Domiciliary/Facility NmgrjaahzapunZoswbcc62/27/2021ppointment: Chivo Bishop WPtel: [phone] [place] [address] USET04/15/2021ppointment: Anna Culver WPtel: [address] [place] [address] [id number]: Anna Culver WPtel: [address] [place] [address] USET03/24/2021ppointment: Anna Culver WPtel: [address] [place] [address] USETV03/13/2021ppointment: Anna Culver WPtel: [address] [place] [address] [id number]: Chivo Bishop WPtel: [address] [place] [address] [id number]: Anna Culver WPtel: [address] [place] [address] USETV01/13/2021ppointment: Anna Culver WPtel: [id number] [place] [address] [id number]/ppointment: Chivo Bishop WPtel: [phone] [place] [address] USETV11/28/2020ppointment: Anna Culver WPtel: [id number] [place] [address] USETV11/24/2020ppointment: Anna Culver WPtel: [phone] [place] [address] [id number]: Anna Culver WPtel: [address] [place] [address] [id number]/25/2019Appointment: Anna Culver WPtel: [address] [place] [address] USETV110/26/2019Appointment: Anna Culver WPtel: [address] [place] [address] USETV110/19/2019Appointment: Anna Culver WPtel: [address] [place] [address] [id number]: Anna Culver WPtel: [address] [place] [address] [id number]: Gianna Birmingham [facility]: [address] [facility] [address] [id number]: Anna Culver WPtel: [address] [place] [address] [id number]: Anna Culver WPtel: [address] [place] [address] [place] [address] [id number]: Anna Culver WPtel: [id number] [place] [address] [id number]: Anna Culver WPtel: [phone] [place] [address] [id number]: Anna Culver WPtel: [phone] [place] [address] [id number]: Anna Culver WPtel: [address] [place] [address] [id number]: Anna Culver WPtel: [address] [place] [address] [id number]: Anna Culver WPtel: [address] [place] [address] [id number]: Anna Culver WPtel: [address] [place] [address] [id number]: Anna Culver WPtel: [address] [place] [address] [id number]/20/2018Appointment: Sudha Hernadez WPtel: [address] [facility] [id number]: Sudha Hernadez WPtel: [address] [facility] [id number]: Charlene Oropeza WPtel: [address] [facility] [id number]: Enedelia [id number]: Charlene Oropeza WPtel: [address] [facility] b [id number]: Rasta Palafox WPtel: [address] [facility] [address] [id number]: Rasta Palafox WPtel: [address] [facility] [id number]: Rasta Palafox WPtel: [address] [facility] b [id number]: Rasta Palafox WPtel: [address] [facility] [id number]: Pending Gynecology Referral InformationReferral ProcessedReferral: Pending Pulmonology Referral InformationReferralProcessed Referral: Pending Psychiatry Referral InformationReferralInitiatedReferral: Pending Respiratory Services Referral InformationReferralInitiatedReferral: Pending Ophthalmology Referral InformationReferralInitiatedReferral: [facility] WPtel: [address] USWriter placed a call out to the patient to notify her that it has been recommended that she be seenby a urologist. Patient agreed to be seen, does not have a provider of choice and no transportationissues. Requirements Engineer faxed referral and clinical notes to [facility] in [place], [place] near the patient's home. Patient [...] and prefers a provider in the [place] or [place] area. Requirements Engineer placed a call out to everyone listed in the area and the only location that was able to accept the patient's insurance was [place] [address] [place] [address] and spoke with Maylin. Maylin asked that the patient's referral, face sheet and visit notes be faxed to . Requirements Engineer faxed over requested documents. Patient appointment confirmation letter generated and mailed to her home address. Patient to call to schedule an appointment.ProcessedReferral: [facility] Neurology WPtel: [address] [facility] [address] [id number] USPatient notified that it has been advised that she be seen by Neurology. Patient agreed to be seen and prefers to be seen by a provider in the [place], [place] area. Patient denies any concerns with transportation, and prefers to schedule her own appointment. Requirements Engineer placed a call out to [facility] [...]
--- OUTSIDE RECORDS SUMMARY | 2023-12-07 02:16 | XMS_ITS | CCD ---
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 Public Works Manager Name Role Phone Palomo KING, Anna Primary Care Provider Unav ailable Unavailable Chronic Care Management Unavaila ble Summary Purpose DataExchange Insurance Providers Payer name Policy type / Coverage type Covered republican ID Effective Begin Date Effective End Date [employer] [facility] [id number] Unknown Unknown Family history Mother Diagnosis Age [...] 05/31/2018 Education level Unknown Some High School 10th05/31/20188285LuovaiuumdYobgmstZbegychwmy72/29/2018Tobacco historySNOMED CT: 308196423Uio never smoked or chewed phomxky3205/31/2018Alcohol historySNOMED CT: 214741635Knipn drinks wmdxfls1805/31/2018Has the patient ever used illegal drugs? UnknownHas never used illegal drugs05/31/2018DNR Order/ Advanced Directive UnknownFull Code05/31/2018 Allergies, Adverse Reactions, Alerts Substance Reaction Codes Entered Date Inactivated Date Status OxyContin itch, RxNorm: 457148 01/13/2021 No Inactive Da te Active *No known food allergies Evjgxzx2409/06/2018No Inactive DateActiveMethylprednisolonehivesRxNorm: 6902 09/06/2018No Inactive DateActive Problems Condition Codes Effective Dates Condition St atus Hypertensive heart disease with heart fa ilure ICD-10: I11.0 ICD-9: 402.9107ActiveType 2 diabetes mellitus with peripheral neuropathy ICD-10: E11.42 ICD-9: 250.6002ActiveAnorexiaICD-10: R63.0 ICD-9: 783.003/1ActiveBlisterICD-10: T14.8XXA ICD-9: 919.206ctiveObstructive sleep apnea (adult) (pediatric)ICD-10: G47.33 ICD-9: 327.2309/ActiveAdjustment disorder with mixed anxiety and depressed moodICD-10: F43.23 ICD-9: 309.2812ActiveEncounter for screening for tobacco useICD-10: Z01.89 ICD-9: V72.8503ActiveElevated liver enzymesICD-10: R74.8 ICD-9: 790.504/ctiveHyperlipidemia, unspecifiedICD-10: E78.5 ICD-9: 272.408ActiveChronic kidney disease, stage 2 (mild)ICD-10: N18.2 ICD-9: 585.201ctiveGERD (gastroesophageal reflux disease)ICD-10: K21.9 ICD-9: 530.8112ActiveHistory of bladder surgeryICD-10: Z98.890 ICD-9: V45.8904ctiveUrinary retention with incomplete bladder emptying ICD-10: R33.9 ICD-9: 788.210/ctive(Z00.01-V70.0) Encounter for general adult medical examination with abnormal findingsICD-10: Z00.01 ICD-9: V70.004/1Active(Z13.31-V79.0) Encounter for screening for depressionICD-10: Z13.31 ICD-9: V79.004/ctiveEncounter for immunizationICD-10: Z23 ICD-9: V04.8109InactiveEssential (primary) hypertensionICD-10: I10 ICD-9: 401.901/10/2018InactiveApnea, not elsewhere classifiedICD-10: R06.81 ICD-9: 786.0305InactiveChest pain, unspecifiedICD-10: R07.9 ICD-9: 786.5002/InactiveChronic kidney disease, unspecifiedICD-10: N18.9 ICD-9: 585.909/InactiveDiarrheaICD-10: R19.7 ICD-9: 787.9112/InactiveEncounter for immunizationICD-10: Z23 ICD-9: V03.907/InactiveEncounter for preprocedural cardiovascular examinationICD-10: Z01.810 ICD-9: V72.8106/InactiveHeadacheICD-10: R51 ICD-9: 784.001/10/2018InactiveOther 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 helper termite (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ICD-10: Z79.899 ICD-9: V58.6907/InactiveType 2 [...] Instructions omeprazole 20 mg capsule,delayed release RxNorm: 180724 1 Capsule(s) Oral every evening 04/03/20 21 2020 Inactive sertraline 100 mg tablet RxNorm: 072851 2 Tablet(s) Oral every day 03/13/20 21 2020 Inactive levothyroxine 50 mcg tablet RxNorm: 004479 TAKE (1) TABLET BY MOUTH DAILY 02/04/20 21 2020 Inactive metformin 500 mg tablet RxNorm: 911275 1 Tablet(s) Oral two times a day take with 500mg to equal 1000mg 01/14/20 21 2020 Inactive gabapentin 300 mg capsule RxNorm: 851279 TAKE 1 CAPSULE BY MOUTH THREE TIMES A DAY 01/14/20 21 2020 Inactive lisinopril 2.5 mg tablet RxNorm: 610330 TAKE 1 TABLET BY MOUTH DAILY 01/06/20 21 2020 Inactive gabapentin 300 mg capsule RxNorm: 940042 TAKE 1 CAPSULE BY MOUTH THREE TIMES A DAY 01/06/20 21 2020 Inactive Singulair 10 mg tablet RxNorm: 250810 TAKE (1) TABLET BY MOUTH DAILY 01/06/20 21 2020 Inactive metformin 1,000 mg tablet RxNorm: 168029 1 Tablet(s) Oral two times a day 01/06/20 21 2020 Inactive atorvastatin 40 mg tablet RxNorm: 271395 1 Tablet(s) Oral every day 12/06/19 21 2020 Inactive omeprazole 20 mg capsule,delayed release RxNorm: 498538 1 Capsule(s) Oral every evening 11/24/19 21 2020 Inactive famotidine 10 mg tablet RxNorm: 354279 1 Tablet(s) Oral every morning 11/24/19 21 2020 Inactive Alcohol Prep Pads RxNorm: 932122 USE EACH MORNING 10/14/19 21 2020 Inactive omeprazole 20 mg capsule,delayed release RxNorm: 250499 1 Capsule(s) Oral two times a day 10/13/19 21 2021 Inactive omeprazole 20 mg capsule,delayed release RxNorm: 333647 TAKE 1 CAPSULE BY MOUTH EVERY DAY 10/08/19 21 2021 Inactive Macrobid 100 mg capsule RxNorm: 831249 1 Capsule(s) Oral every 12 hours with food 10/01/202020 Inactive omeprazole 20 mg capsule,delayed release RxNorm: 670202 1 Capsule(s) Oral two times a day 09/24/20 20 2021 Inactive metformin 1,000 mg tablet RxNorm: 289920 1 Tablet(s) Oral two times a day 08/19/20 20 2020 Inactive start on September 11, 2020 metformin 500 mg tablet RxNorm: 326158 1 Tablet(s) Oral two times a day take with 500mg to equal 1000mg 08/19/20 20 2019 Inactive gabapentin 300 mg capsule RxNorm: 362988 TAKE 1 CAPSULE BY MOUTH THREE TIMES DAILY 07/11/20 20 2020 Inactive cetirizine 10 mg tablet RxNorm: 9924548 TAKE (1) TABLET BY MOUTH DAILY 07/11/20 20 2020 Inactive metformin 500 mg tablet RxNorm: 475156 1 Tablet(s) Oral two times a day 07/08/20 20 2019 Inactive loperamide 2 mg tablet RxNorm: 264837 1 Tablet(s) Oral as needed take one tablet after each loose stool, maximum of 8 tablets in 24 hours 06/24/20 20 2021 Inactive Sudafed 12 Hour 120 mg tablet,extended release RxNorm: 7620677 TAKE 1 TABLET BY MOUTH EVERY 12 HOURS NEEDED 06/11/20 20 2019 Inactive hydrochlorothiazide 25 mg tablet RxNorm: 761047 TAKE (1) TABLET BY MOUTH EVERY DAY 06/11/20 20 2019 Inactive omeprazole 20 mg capsule,delayed release RxNorm: 934265 TAKE 1 CAPSULE BY MOUTH EVERY DAY 05/14/20 20 2020 Inactive metformin 500 mg tablet RxNorm: 415683 1 Tablet(s) Oral every day 05/12/20 20 2019 Inactive True Metrix Glucose Test Strip RxNorm: 1 Test Strips Miscellaneous two times a day as needed 04/17/20 No Stop Date Active metformin 500 mg tablet RxNorm: 787289 1 Tablet(s) Oral every day 04/17/20 20 2019 Inactive diclofenac sodium 75 mg tablet,delayed release RxNorm: 527998 1 Tablet(s) PO BID 04/14/20 20 2021 Inactive This refill negates all other refills of this medication Sudafed 12 Hour 120 mg tablet,extended release RxNorm: 6199394 TAKE 1 TABLET BY MOUTH EVERY 12 HOURS NEEDED 03/14/20 20 2019 Inactive True Metrix Glucose Test Strip RxNorm: 1 Test Strips Miscellaneous every morning 03/13/20 20 2019 Inactive 100/container True Metrix Glucose Test Strip RxNorm: 1 Test Strips Miscellaneous QAM 02/22/20 20 2019 Inactive 100/container loperamide 2 mg tablet RxNorm: 823427 1 Tablet(s) Oral as needed take one tablet after each loose stool, maximum of 8 tablets in 24 hours 02/22/20 20 2019 Inactive cetirizine 10 mg tablet RxNorm: 1997702 1 Tablet(s) PO daily 01/17/20 20 2019 Inactive loperamide 2 mg tablet RxNorm: 427878 1 Tablet(s) Oral as needed take one tablet after each loose stool, maximum of 8 tablets in 24 hours 01/17/20 20 2019 Inactive quetiapine 100 mg tablet RxNorm: 638432 1 Tablet(s) Oral every night at bedtime 01/17/20 20 2019 Inactive levothyroxine 50 mcg tablet RxNorm: 288163 1 Tablet(s) PO daily 01/17/20 20 2020 Inactive gabapentin 300 mg capsule RxNorm: 078284 1 Capsule(s) PO TID 01/17/20 20 2019 Inactive levothyroxine 50 mcg tablet RxNorm: 224053 1 Tablet(s) PO daily 01/15/20 20 2019 Inactive lisinopril 2.5 mg tablet RxNorm: 842403 1 Tablet(s) PO daily 01/15/20 20 2020 Inactive gabapentin 300 mg capsule RxNorm: 005430 1 Capsule(s) PO TID 01/15/20 20 2019 Inactive cetirizine 10 mg tablet RxNorm: 9505815 1 Tablet(s) PO daily 01/15/20 20 2019 Inactive Singulair 10 mg tablet RxNorm: 478247 1 Tablet(s) PO daily 01/15/20 20 2020 Inactive gentamicin 0.3 % eye drops RxNorm: 992922 1 Drop(s) ophthalmic (eye) four times a day 12/29/19 20 2019 Inactive gentamicin 0.3 % eye drops RxNorm: 072052 1 Drop(s) ophthalmic (eye) four times a day 12/29/19 20 2019 Inactive gentamicin 0.3 % eye drops RxNorm: 897385 1 Drop(s) ophthalmic (eye) four times a day 12/29/19 20 2019 Inactive hydrochlorothiazide 25 mg tablet RxNorm: 479946 1 Tablet(s) Oral every day 12/21/19 20 2019 Inactive Sudafed 12 Hour 120 mg tablet,extended release RxNorm: 1571027 TAKE (1) TABLET BY MOUTH EVERY 12 HOURS NEEDED 12/21/19 20 2019 Inactive loperamide 2 mg tablet RxNorm: 058479 1 Tablet(s) Oral as needed take one tablet after each loose stool, maximum of 8 tablets in 24 hours 12/11/19 20 2019 Inactive loperamide 2 mg tablet RxNorm: 547289 1 Tablet(s) Oral as needed take one tablet after each loose stool, maximum of 8 tablets in 24 hours 12/11/19 20 2019 Inactive atorvastatin 40 mg tablet RxNorm: 074659 1 Tablet(s) Oral every day 11/29/19 20 2020 Inactive quetiapine 100 mg tablet RxNorm: 244833 1 Tablet(s) Oral every night at bedtime 11/28/19 20 2019 Inactive sertraline 100 mg tablet RxNorm: 376856 1 Tablet(s) Oral 11/28/19 20 2019 Inactive omeprazole 20 mg capsule,delayed release RxNorm: 338408 1 Capsule(s) Oral every day 11/20/19 20 2019 Inactive amoxicillin 250 mg capsule RxNorm: 811559 1 Capsule(s) Oral three times a day 11/07/19 20 2019 Inactive multivitamin with iron-mineral tablet RxNorm: 1 Tablet(s) Oral every day 10/29/19 20 2021 Inactive cetirizine 10 mg tablet RxNorm: 9855937 1 Tablet(s) PO daily 10/20/19 20 2019 Inactive This refill negates all other refills of this medication. Please do not auto refill Singulair 10 mg tablet RxNorm: 523043 1 Tablet(s) PO daily 10/20/19 20 2019 Inactive This refill negates all other refills of this medication gabapentin 300 mg capsule RxNorm: 568404 1 Capsule(s) PO TID 10/20/192019 Inactive lisinopril 2.5 mg tablet RxNorm: 682088 1 Tablet(s) PO daily 10/20/19 20 2019 Inactive levothyroxine 50 mcg tablet RxNorm: 882493 1 Tablet(s) PO daily 10/20/192019 Inactive This refill negates all other refills of this medication fenugreek seed extract 500 mg capsule RxNorm: 1 Capsule(s) Oral three times a day 10/17/19 20 2021 Inactive hydrochlorothiazide 25 mg tablet RxNorm: 464947 1 Tablet(s) Oral every day 10/17/19 20 2019 Inactive Alcohol Prep Pads RxNorm: 275640 1 Patch TOP QAM 10/16/19 20 2020 Inactive loperamide 2 mg tablet RxNorm: 888763 1 Tablet(s) Oral as needed take one tablet after each loose stool not to exceed 8 tablets a day 09/29/202018 Inactive Calcium 600-D3 Plus (mag-zinc) 600 mg calcium-800 unit-50 mg tablet RxNorm: 1 Tablet(s) PO daily take an additonal tablet for itching. 12/21/2021 Inactive This refill negates all other refills of this medication TRUEplus Lancets 30 gauge RxNorm: 1 Lancets Miscellaneous QAM 09/22/20 19 2019 Inactive 100/box fenugreek seed extract 500 mg capsule RxNorm: 1 Capsule(s) Oral three times a day 09/19/20 19 2019 Inactive hydrochlorothiazide 25 mg tablet RxNorm: 304921 1 Tablet(s) Oral every day 09/19/20 19 2019 Inactive Sudafed 12 Hour 120 mg tablet,extended release RxNorm: 2156929 1 Tablet(s) Oral every 12 hours as needed 09/11/20 19 2018 Inactive omeprazole 20 mg capsule,delayed release RxNorm: 452980 1 Capsule(s) Oral every day 09/07/20 19 2019 Inactive Sudafed 12 Hour 120 mg tablet,extended release RxNorm: 3332420 1 Tablet(s) Oral every 12 hours as needed 09/04/20 19 2018 Inactive pantoprazole 40 mg tablet,delayed release RxNorm: 261146 1 Tablet(s) Oral every day 08/24/20 19 2018 Inactive discontinue any other H2Blkr. and PPI albuterol sulfate 2.5 mg/3 mL (0.083 %) solution for nebulization RxNorm: 701328 1 Vial Inhalation every four hours as needed as needed for dyspnea 08/17/20 19 2019 Inactive 60/box. This refill negates all other refills of this medication. Please do not fill early. Please do not auto refill. Symbicort 160 mcg-4.5 mcg/actuation HFA aerosol inhaler RxNorm: 8887042 2 Puff(s) INH BID 08/17/20 19 No Stop Date Active Alcohol Prep Pads RxNorm: 404290 1 Patch TOP QAM 08/17/20 19 2019 Inactive Ventolin HFA 90 mcg/actuation aerosol inhaler RxNorm: 930185 2 Puff(s) INH QID 08/09/20 19 2019 Inactive Please do not fill early. Please do not auto refill. This refill negates all other refills of this medication True Metrix Glucose Test Strip RxNorm: 1 Test Strips Miscellaneous QAM 08/09/20 19 2019 Inactive 100/container atorvastatin 40 mg tablet RxNorm: 419568 1 Tablet(s) Oral every day 07/04/20 19 2019 Inactive levmetamfetamine 50 mg nasal inhaler RxNorm: 1 Unit(s) NASAL Q3-4H Do not use more than every 3 hours or 8 times/24hours 06/26/20 19 2021 Inactive Please do not auto refill. This refill negates all other refills of this medication buspirone 7.5 mg tablet RxNorm: 755113 1 Tablet(s) PO BID 06/26/20 19 2020 Inactive This refill negates all other refills of this medication hydrochlorothiazide 12.5 mg tablet RxNorm: 162649 1 Tablet(s) PO QAM 06/26/20 19 2019 Inactive Ventolin HFA 90 mcg/actuation aerosol inhaler RxNorm: 879107 2 Puff(s) INH QID 06/26/20 19 2018 Inactive Please do not fill early. Please do not auto refill. This refill negates all other refills of this medication Singulair 10 mg tablet RxNorm: 696504 1 Tablet(s) PO daily 06/26/20 19 2019 Inactive This refill negates all other refills of this medication cetirizine 10 mg tablet RxNorm: 1071055 1 Tablet(s) PO daily 06/26/20 19 2019 Inactive This refill negates all other refills of this medication. Please do not auto refill levothyroxine 50 mcg tablet RxNorm: 953154 1 Tablet(s) PO daily 06/26/20 19 2019 Inactive This refill negates all other refills of this medication diclofenac sodium 75 mg tablet,delayed release RxNorm: 776855 1 Tablet(s) PO BID 06/26/20 19 2019 Inactive This refill negates all other refills of this medication ranitidine 150 mg tablet RxNorm: 509695 1 Tablet(s) PO BID 06/26/20 19 2018 Inactive This refill negates all other refills of this medication Calcium 600-D3 Plus (mag-zinc) 600 mg calcium-800 unit-50 mg tablet RxNorm: 1 Tablet(s) PO daily take an additonal tablet for itching. 06/26/20 19 2018 Inactive This refill negates all other refills of this medication albuterol sulfate 2.5 mg/3 mL (0.083 %) solution for nebulization RxNorm: 000748 1 Vial INH QID 06/26/20 19 2018 Inactive 60/box. This refill negates all other refills of this medication. Please do not fill early. Please do not auto refill. lisinopril 2.5 mg tablet RxNorm: 990627 1 Tablet(s) PO daily 06/21/20 19 2019 Inactive gabapentin 300 mg capsule RxNorm: 554872 1 Capsule(s) PO TID 06/21/20 19 2019 Inactive atorvastatin 20 mg tablet RxNorm: 752675 1 Tablet(s) PO QHS 06/07/20 19 2018 Inactive This refill negates all other refills of this medication TRUEplus Lancets 30 gauge RxNorm: 1 Lancets Miscellaneous QAM 05/29/20 19 2018 Inactive 100/box gabapentin 300 mg capsule RxNorm: 708799 1 Capsule(s) PO TID 05/03/20 19 2018 Inactive Flintstones Complete (iron) 18 mg iron chewable tablet RxNorm: 1 Tablet(s) PO daily 04/04/202021 Inactive This refill negates all other refills of this medication gabapentin 300 mg capsule RxNorm: 103076 1 Capsule(s) PO TID as needed 02/01/20 19 2018 Inactive True Metrix Glucose Test Strip RxNorm: 1 Test Strips Miscellaneous QAM 02/01/20 19 2018 Inactive 100/container Alcohol Prep Pads RxNorm: 304355 1 Patch TOP QAM 02/01/20 19 2018 Inactive TRUEplus Lancets 30 gauge RxNorm: 1 Lancets Miscellaneous QAM 02/01/20 19 2018 Inactive 100/box lisinopril 2.5 mg tablet RxNorm: 307849 1 Tablet(s) PO daily 12/28/19 19 2018 Inactive ranitidine 150 mg tablet RxNorm: 531159 1 Tablet(s) PO BID 10/21/19 19 2018 Inactive This refill negates all other refills of this medication albuterol sulfate 2.5 mg/3 mL (0.083 %) solution for nebulization RxNorm: 749774 1 Vial INH QID 10/21/192018 Inactive 60/box. [...] this medication gabapentin 300 mg capsule RxNorm: 542865 1 Capsule(s) PO TID as needed 10/21/19 19 2018 Inactive atorvastatin 20 mg tablet RxNorm: 757183 1 Tablet(s) PO QHS 10/21/192018 Inactive This refill negates all other refills of this medication trazodone 50 mg tablet RxNorm: 298062 1 Tablet(s) PO QHS 10/21/192018 Inactive This refill negates all other refills of this medication Ventolin HFA 90 mcg/actuation aerosol inhaler RxNorm: 479553 2 Puff(s) INH QID 10/21/192018 Inactive Please do not fill early. Please do not auto refill. This refill negates all other refills of this medication Calcium 600-D3 Plus 600 mg calcium-800 unit-50 mg tablet RxNorm: 1 Tablet(s) PO daily take an additonal tablet for itching. 10/21/192018 Inactive This refill negates all other refills of this medication Singulair 10 mg tablet RxNorm: 697574 1 Tablet(s) PO daily 10/21/192018 Inactive This refill negates all other refills of this medication buspirone 7.5 mg tablet RxNorm: 476022 1 Tablet(s) PO BID 10/21/19 19 2018 Inactive This refill negates all other refills of this medication diclofenac sodium 75 mg tablet,delayed release RxNorm: 642988 1 Tablet(s) PO BID 10/21/19 19 2018 Inactive This refill negates all other refills of this medication hydrochlorothiazide 12.5 mg tablet RxNorm: 262210 1 Tablet(s) PO QAM 10/21/19 19 2018 Inactive metoprolol succinate ER 50 mg tablet,extended release 24 hr RxNorm: 831874 1 Tablet(s) PO daily 10/21/19 19 2018 Inactive This refill negates all other refills of this medication levothyroxine 50 mcg tablet RxNorm: 235831 1 Tablet(s) PO daily 10/21/19 19 2018 Inactive This refill negates all other refills of this medication cetirizine 10 mg tablet RxNorm: 5324656 1 Tablet(s) PO daily 10/21/19 19 2018 Inactive This refill negates all other refills of this medication. Please do not auto refill Flintstones Complete (iron) 18 mg iron chewable tablet RxNorm: 1 Tablet(s) PO daily 10/21/19 19 2018 Inactive This refill negates all other refills of this medication buspirone 7.5 mg tablet RxNorm: 203044 1 Tablet(s) PO BID 10/12/192018 Inactive cetirizine 10 mg tablet RxNorm: 2378777 1 Tablet(s) PO daily 09/28/202018 Inactive Guaiasorb DM 10 mg-100 mg/5 mL oral liquid RxNorm: 499900 10 Milliliter(s) PO As needed every 4 hr 09/24/202018 Inactive Vicks Vaporub 4.7 %-1.2 %-2.6 % topical ointment RxNorm: 3248962 1 Application TOP TID 09/24/20 18 2018 Inactive levmetamfetamine 50 mg nasal inhaler RxNorm: 1 Unit(s) NASAL Q3-4H 09/24/20 18 2017 Inactive sertraline 50 mg tablet RxNorm: 146699 1 Tablet(s) PO daily 09/09/20 18 2018 Inactive Please note dose trazodone 50 mg tablet RxNorm: 247113 1 Tablet(s) PO QHS 09/06/20 18 2018 Inactive sertraline 50 mg tablet RxNorm: 883536 1 Tablet(s) PO daily 09/06/20 18 2017 Inactive amoxicillin 500 mg tablet RxNorm: 646807 1 Tablet(s) PO Q12H 08/31/20 18 2017 Inactive albuterol sulfate 2.5 mg/3 mL (0.083 %) solution for nebulization RxNorm: 516944 1 Vial INH QID 08/10/20 18 2018 Inactive 60/box. Please do not fill early. Please do not auto refill. Prozac 10 mg capsule RxNorm: 292196 1 Capsule(s) PO daily 08/09/20 18 2017 Inactive buspirone 7.5 mg tablet RxNorm: 367231 1 Tablet(s) PO BID 08/09/20 18 2018 Inactive gabapentin 300 mg capsule RxNorm: 633287 1 Capsule(s) PO TID as needed 08/01/20 18 2018 Inactive hydrochlorothiazide 12.5 mg tablet RxNorm: 438590 1 Tablet(s) PO QAM 08/01/20 18 2018 Inactive ranitidine 150 mg tablet RxNorm: 239724 1 Tablet(s) PO BID 08/01/20 18 2018 Inactive Macrobid 100 mg capsule RxNorm: 390146 1 Capsule(s) PO Q12H 06/21/20 18 2017 Inactive Singulair 10 mg tablet RxNorm: 426608 1 Tablet(s) PO daily 06/14/20 18 2018 Inactive Ventolin HFA 90 mcg/actuation aerosol inhaler RxNorm: 6780812 2 Puff(s) INH QID 06/14/20 18 2018 Inactive Singulair 10 mg tablet RxNorm: 526631 1 Tablet(s) PO daily 06/14/20 18 2017 Inactive buspirone 7.5 mg tablet RxNorm: 699320 1 Tablet(s) PO BID 06/14/20 18 2017 Inactive Prozac 10 mg capsule RxNorm: 927816 1 Capsule(s) PO daily 06/14/20 18 2017 Inactive Neilmed Pediatric Sinus Rinse Refill packet RxNorm: 1 Unit Dose NASAL PRN 05/31/20 18 2021 Inactive diclofenac sodium 75 mg tablet,delayed release RxNorm: 150437 1 Tablet(s) PO BID 05/31/20 18 2017 Inactive lisinopril 2.5 mg tablet RxNorm: 271447 1 Tablet(s) PO daily 05/31/20 18 2017 Inactive metoprolol succinate ER 50 mg tablet,extended release 24 hr RxNorm: 044750 1 Tablet(s) PO daily 05/31/20 18 2017 Inactive levothyroxine 50 mcg tablet RxNorm: 315230 1 Tablet(s) PO daily 05/31/20 18 2017 Inactive TRUEplus Lancets 30 gauge RxNorm: 1 Lancets Miscellaneous QAM 05/31/20 18 2017 Inactive 100/box Ventolin HFA 90 mcg/actuation aerosol inhaler RxNorm: 981962 2 Puff(s) INH QID 05/31/20 18 2017 Inactive Aleve 220 mg capsule RxNorm: 9370603 1 Capsule(s) PO BID 05/31/20 18 2018 Inactive ranitidine 150 mg tablet RxNorm: 039885 1 Tablet(s) PO BID 05/31/20 18 2017 Inactive gabapentin 300 mg capsule RxNorm: 115480 1 Capsule(s) PO TID as needed 05/31/20 18 2017 Inactive atorvastatin 20 mg tablet RxNorm: 393179 1 Tablet(s) PO QHS 05/31/20 18 2017 Inactive True Metrix Glucose Test Strip RxNorm: 1 Test Strips Miscellaneous QAM 05/31/20 18 2017 Inactive 50/container Calcium 600-D3 Plus 600 mg calcium-800 unit-50 mg tablet RxNorm: 1 Tablet(s) PO daily take an additonal tablet for itching. 05/31/20 18 2017 Inactive hydrochlorothiazide 12.5 mg tablet RxNorm: 159120 1 Tablet(s) PO QAM 05/31/20 18 2017 Inactive Flintstones Complete (iron) 18 mg iron chewable tablet RxNorm: 1 Tablet(s) PO daily 05/31/20 18 2017 Inactive d-mannose oral powder RxNorm: PO 18 2021 Inactive True Metrix Glucose Meter RxNorm: miscellaneous 08/17/20 19 2018 Inactive sertraline 50 mg tablet RxNorm: 937994 1 Tablet(s) PO daily 11/28/19 20 2019 Inactive loperamide 2 mg tablet RxNorm: 376492 oral 09/29/20 19 2018 Inactive Symbicort 160 mcg-4.5 mcg/actuation HFA aerosol inhaler RxNorm: 4035262 2 Puff(s) INH BID 08/17/20 19 2018 Inactive Medication Administered No Medication Administered data Procedures Procedure Codes Date Hypertension CPT-4: HTN 04/01/2021 Tobacco Assessment/Screening CPT-4: TCA 08/2021 Patient Health Questionnaire CPT-4: DPHQ 08/2021 Mini Mental State Exam CPT-4: DMMA Annual Wellness Visit (Subsequent Visit) CPT-4: G0439 01/13/2021 Advanced Care Planning CPT-4: VACP Fall Risk Assessment SNOMED CT: 52542488 4 CPT-4: DFRA01/13/2021emmes Fany AssessmentCPT-4: DSWA12/17/2020Urinalysis, dip stickCPT-4: 295559909/24/2020Patient Health QuestionnaireCPT-4: DPHQ 08/19/2020ElectrocardiogramCPT-4: 9961539Tobacco Assessment/Screening CPT-4: TCA01/01/2020Fall Risk AssessmentSNOMED CT: 103400911 CPT-4: DFRA0331/2020Functional AssessmentCPT-4: DFA01/01/2020Sem[facility] Fany AssessmentCPT-4: DSWA11/28/2019Patient Health QuestionnaireCPT-4: DPHQ11/28/2019 [facility] AssessmentCPT-4: DSWA10/17/2019HypertensionCPT-4: HTN10/17/[address]: 529600594 CPT-4: DFRA09/19/2019Functional AssessmentCPT-4: DFA111/20/2018Urinalysis, dip stickCPT-4: 9958782Tobacco Assessment/ScreeningCPT-4: TCA05/24/2019 Patient Health QuestionnaireCPT-4: DPHQ05/24/2019AHA/REBECCA Classification AssessmentCPT-4: DAHA04/25/2019Controlled Substance ReportCPT-4: CTRSU04/25/2019 Urinalysis, dip stickCPT-4: 877915703/28/2019Urinalysis, dip stickCPT-4: 75595 03/28/20193678Q1U-DtgmntasnzecvlnIGY-8: 33065ZakixilB1Q-YginzxunrowzulvJRV-3: 88333 HpokpasI9Z-OxqlczxnlcxdvpzTXM-0: 85224GadyluzR3N-VwopuxipwepgfvcUKA-9: 43146 SfhifzdH9M-FpcqbbhxlpsqdhrSGF-7: 94858FwdlkjeD1H-XxieioxqhkxmsxhJEU-0: 18661 UcdxyooH7J-UjtugdjzhuxpwkhPHH-6: 19552RqfqtuxHcjpromzlm ReferralSNOMED CT: 424245779 CPT-4: Y47Ctcdtwt Reason For Visit No Reason For Visit data Plan of Care Planned Activity Notes Codes Status Date Referral: Pending Gynecology Referral Informatio n Referral ProcessedReferral: Pending Pulmonology Referral InformationReferralProcessed Referral: Pending Psychiatry Referral InformationReferralInitiatedReferral: Pending Respiratory Services Referral InformationReferralInitiatedReferral: Pending Ophthalmology Referral InformationReferralInitiatedReferral: [facility] WPtel: [address] [place] [address] [id number] USWriter placed a call out to the patient to notify her that it has been recommended that she be seenby a urologist. Patient agreed to be seen, does not have a provider of choice and no transportationissues. Director Of Category Management faxed referral and clinical notes to [facility] in [place], [place] near the patient's home. Patient [...] a provider in the [place] or [place] area. Director Of Category Management placed a call out to everyone listed in the area and the only location that was able to accept the patient's insurance was [address] [phone] and spoke with Maylin. Maylni asked that the patient's referral, face sheet and visit notes be faxed to . Director Of Category Management faxed over requested documents. Patient appointment confirmation letter generated and mailed to her home address. Patient to call to schedule an appointment.ProcessedReferral: [facility] WPtel: [address] [place] [address] [place], [place] [id number] USPatient notified that it has been advised that she be seen by Neurology. Patient agreed to be seen and prefers to be seen by a provider in the [place], [place] area. Patient denies any concerns with transportation, and prefers to schedule her own appointment. Director Of Category Management placed a call [facility] to [facility] [...]
--- OUTSIDE RECORDS SUMMARY | 2023-12-07 02:16 | XMS_ITS | CCD ---
Author Name Leena Culver NP Address [address] [place] [address] [address] [place] [address] Phone Organization [facility] Phone Care Team Providers Care Operations Welder Name Role Phone Anna Culver NP Primary Care Provider Unav ailable Unavailable Chronic Care Management Unavaila ble Summary Purpose DataExchange Insurance Providers Payer name Policy type / Coverage type Covered constitution party ID Effective Begin Date Effective End Date SUKI MAYO [id number] Unknown Unknown Family history Mother Diagnosis Age [...] 05/31/2018 Education level Unknown Some High School 10th05/31/20189878OglmddkunvOdkjaxtEpomkghsva66/29/2018Tobacco historySNOMED CT: 638870267Lyg never smoked or chewed ajcaqja4605/31/2018Alcohol historySNOMED CT: 981033972Jnsll drinks yxouwqe7805/31/2018Has the patient ever used illegal drugs? UnknownHas never used illegal drugs05/31/2018DNR Order/ Advanced Directive UnknownFull Code05/31/2018 Allergies, Adverse Reactions, Alerts Substance Reaction Codes Entered Date Inactivated Date Status OxyContin itch, RxNorm: 856594 01/13/2021 No Inactive Da te Active *No known food allergies Uwznsss7309/06/2018No Inactive DateActiveMethylprednisolonehivesRxNorm: 6902 09/06/2018No Inactive DateActive Problems Condition Codes Effective Dates Condition St atus Hypertensive heart disease with heart fa ilure ICD-10: I11.0 ICD-9: 402.9107/ActiveType 2 diabetes mellitus with peripheral neuropathy ICD-10: E11.42 ICD-9: 250.6002/ActiveAnorexiaICD-10: R63.0 ICD-9: 783.003/1ActiveBlisterICD-10: T14.8XXA ICD-9: 919.206/1ActiveObstructive sleep apnea (adult) (pediatric)ICD-10: G47.33 ICD-9: 327.2309/ActiveAdjustment disorder with mixed anxiety and depressed moodICD-10: F43.23 ICD-9: 309.2812ActiveEncounter for screening for tobacco useICD-10: Z01.89 ICD-9: V72.8503ActiveElevated liver enzymesICD-10: R74.8 ICD-9: 790.504/ctiveHyperlipidemia, unspecifiedICD-10: E78.5 ICD-9: 272.408/ActiveChronic kidney disease, stage 2 (mild)ICD-10: N18.2 ICD-9: 585.201ctiveGERD (gastroesophageal reflux disease)ICD-10: K21.9 ICD-9: 530.8112ActiveHistory of bladder surgeryICD-10: Z98.890 ICD-9: V45.8904/ctiveUrinary retention with incomplete bladder emptying ICD-10: R33.9 ICD-9: 788.210/1Active(Z00.01-V70.0) Encounter for general adult medical examination with [...] examinationICD-10: Z01.810 ICD-9: V72.8106/InactiveHeadacheICD-10: R51 ICD-9: 784.001/10/2018InactiveOther custodial (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ICD-10: Z79.899 ICD-9: V58.6907/InactiveType 2 [...] Z68.43 ICD-9: V85.4308ActiveSyncope and collapseICD-10: R55 ICD-9: 780.ActiveFecal incontinenceICD-10: R15.9 ICD-9: 787.6003ActiveMixed incontinenceICD-10: N39.46 ICD-9: 788.3308ActiveAsthmaICD-10: J45.909 ICD-9: 493.9011ActivePatient Not SeenICD-10: UXZ.01 ICD-9: XZ0.107ActiveDyspnea, unspecifiedICD-10: R06.00 ICD-9: 786.0905ActivePost-traumatic stress disorder, unspecifiedICD-10: F43.10 ICD-9: 309.8112ActiveAbnormal electrocardiogram [ECG] [EKG]ICD-10: R94.31 ICD-9: 794.3108ActiveEdema, unspecifiedICD-10: R60.9 ICD-9: 782.310ActiveLong term (current) use of non-steroidal anti- inflammatories (NSAID)ICD-10: Z79.1 ICD-9: V58.64006/13/2018Active Medications Medication Codes Instructions Start Date Stop Date Status Fill Instructions sertraline 100 mg tablet RxNorm: 933491 2 Tablet(s) Oral every day 03/13/20 21 2020 Inactive levothyroxine 50 mcg tablet RxNorm: 122327 TAKE (1) TABLET BY MOUTH DAILY 02/04/20 21 2020 Inactive metformin 500 mg tablet RxNorm: 448157 1 Tablet(s) Oral two times a day take with 500mg to equal 1000mg 01/14/20 21 2020 Inactive gabapentin 300 mg capsule RxNorm: 892045 TAKE 1 CAPSULE BY MOUTH THREE TIMES A DAY 01/14/20 21 2020 Inactive lisinopril 2.5 mg tablet RxNorm: 386264 TAKE 1 TABLET BY MOUTH DAILY 01/06/20 21 2020 Inactive gabapentin 300 mg capsule RxNorm: 507592 TAKE 1 CAPSULE BY MOUTH THREE TIMES A DAY 01/06/20 21 2020 Inactive Singulair 10 mg tablet RxNorm: 118475 TAKE (1) TABLET BY MOUTH DAILY 01/06/20 21 2020 Inactive metformin 1,000 mg tablet RxNorm: 216340 1 Tablet(s) Oral two times a day 01/06/20 21 2020 Inactive atorvastatin 40 mg tablet RxNorm: 000400 1 Tablet(s) Oral every day 12/06/19 21 2020 Inactive omeprazole 20 mg capsule,delayed release RxNorm: 091405 1 Capsule(s) Oral every evening 11/24/19 21 2020 Inactive famotidine 10 mg tablet RxNorm: 883478 1 Tablet(s) Oral every morning 11/24/19 21 2020 Inactive Alcohol Prep Pads RxNorm: 219830 USE EACH MORNING 10/14/19 21 2020 Inactive omeprazole 20 mg capsule,delayed release RxNorm: 806028 1 Capsule(s) Oral two times a day 10/13/19 21 2021 Inactive omeprazole 20 mg capsule,delayed release RxNorm: 650289 TAKE 1 CAPSULE BY MOUTH EVERY DAY 10/08/19 21 2021 Inactive Macrobid 100 mg capsule RxNorm: 268051 1 Capsule(s) Oral every 12 hours with food 10/01/202020 Inactive omeprazole 20 mg capsule,delayed release RxNorm: 344597 1 Capsule(s) Oral two times a day 09/24/20 20 2021 Inactive metformin 1,000 mg tablet RxNorm: 602308 1 Tablet(s) Oral two times a day 08/19/202020 Inactive start on September 11, 2020 metformin 500 mg tablet RxNorm: 001170 1 Tablet(s) Oral two times a day take with 500mg to equal 1000mg 08/19/202019 Inactive gabapentin 300 mg capsule RxNorm: 195741 TAKE 1 CAPSULE BY MOUTH THREE TIMES DAILY 07/11/20 20 2020 Inactive cetirizine 10 mg tablet RxNorm: 3796809 TAKE (1) TABLET BY MOUTH DAILY 07/11/20 20 2020 Inactive metformin 500 mg tablet RxNorm: 364006 1 Tablet(s) Oral two times a day 07/08/20 20 2019 Inactive loperamide 2 mg tablet RxNorm: 796528 1 Tablet(s) Oral as needed take one tablet after each loose stool, maximum of 8 tablets in 24 hours 06/24/20 20 2021 Inactive Sudafed 12 Hour 120 mg tablet,extended release RxNorm: 6188169 TAKE 1 TABLET BY MOUTH EVERY 12 HOURS NEEDED 06/11/20 20 2019 Inactive hydrochlorothiazide 25 mg tablet RxNorm: 203330 TAKE (1) TABLET BY MOUTH EVERY DAY 06/11/20 20 2019 Inactive omeprazole 20 mg capsule,delayed release RxNorm: 177301 TAKE 1 CAPSULE BY MOUTH EVERY DAY 05/14/20 20 2020 Inactive metformin 500 mg tablet RxNorm: 100387 1 Tablet(s) Oral every day 05/12/20 20 2019 Inactive True Metrix Glucose Test Strip RxNorm: 1 Test Strips Miscellaneous two times a day as needed 04/17/20 No Stop Date Active metformin 500 mg tablet RxNorm: 698181 1 Tablet(s) Oral every day 04/17/20 20 2019 Inactive diclofenac sodium 75 mg tablet,delayed release RxNorm: 217328 1 Tablet(s) PO BID 04/14/20 20 2021 Inactive This refill negates all other refills of this medication Sudafed 12 Hour 120 mg tablet,extended release RxNorm: 3173963 TAKE 1 TABLET BY MOUTH EVERY 12 HOURS NEEDED 03/14/20 20 2019 Inactive True Metrix Glucose Test Strip RxNorm: 1 Test Strips Miscellaneous every morning 03/13/20 20 2019 Inactive 100/container True Metrix Glucose Test Strip RxNorm: 1 Test Strips Miscellaneous QA 02/22/20 20 2019 Inactive 100/container loperamide 2 mg tablet RxNorm: 947869 1 Tablet(s) Oral as needed take one tablet after each loose stool, maximum of 8 tablets in 24 hours 02/22/20 20 2019 Inactive cetirizine 10 mg tablet RxNorm: 1115510 1 Tablet(s) PO daily 01/17/20 20 2019 Inactive loperamide 2 mg tablet RxNorm: 942544 1 Tablet(s) Oral as needed take one tablet after each loose stool, maximum of 8 tablets in 24 hours 01/17/20 20 2019 Inactive quetiapine 100 mg tablet RxNorm: 878852 1 Tablet(s) Oral every night at bedtime 01/17/20 20 2019 Inactive levothyroxine 50 mcg tablet RxNorm: 347557 1 Tablet(s) PO daily 01/17/20 20 2020 Inactive gabapentin 300 mg capsule RxNorm: 726503 1 Capsule(s) PO TID 01/17/20 20 2019 Inactive levothyroxine 50 mcg tablet RxNorm: 450919 1 Tablet(s) PO daily 01/15/20 20 2019 Inactive lisinopril 2.5 mg tablet RxNorm: 526762 1 Tablet(s) PO daily 01/15/20 20 2020 Inactive gabapentin 300 mg capsule RxNorm: 404032 1 Capsule(s) PO TID 01/15/20 20 2019 Inactive cetirizine 10 mg tablet RxNorm: 1929043 1 Tablet(s) PO daily 01/15/20 20 2019 Inactive Singulair 10 mg tablet RxNorm: 685000 1 Tablet(s) PO daily 01/15/20 20 2020 Inactive gentamicin 0.3 % eye drops RxNorm: 766218 1 Drop(s) ophthalmic (eye) four times a day 12/29/19 20 2019 Inactive gentamicin 0.3 % eye drops RxNorm: 877594 1 Drop(s) ophthalmic (eye) four times a day 12/29/19 20 2019 Inactive gentamicin 0.3 % eye drops RxNorm: 978021 1 Drop(s) ophthalmic (eye) four times a day 12/29/19 20 2019 Inactive hydrochlorothiazide 25 mg tablet RxNorm: 407714 1 Tablet(s) Oral every day 12/21/19 20 2019 Inactive Sudafed 12 Hour 120 mg tablet,extended release RxNorm: 9407958 TAKE (1) TABLET BY MOUTH EVERY 12 HOURS NEEDED 12/21/19 20 2019 Inactive loperamide 2 mg tablet RxNorm: 982879 1 Tablet(s) Oral as needed take one tablet after each loose stool, maximum of 8 tablets in 24 hours 12/11/19 20 2019 Inactive loperamide 2 mg tablet RxNorm: 662678 1 Tablet(s) Oral as needed take one tablet after each loose stool, maximum of 8 tablets in 24 hours 12/11/19 20 2019 Inactive atorvastatin 40 mg tablet RxNorm: 673208 1 Tablet(s) Oral every day 11/29/19 20 2020 Inactive quetiapine 100 mg tablet RxNorm: 838067 1 Tablet(s) Oral every night at bedtime 11/28/19 20 2019 Inactive sertraline 100 mg tablet RxNorm: 990092 1 Tablet(s) Oral 11/28/1922 05/24/ 2020 Inactive omeprazole 20 mg capsule,delayed release RxNorm: 341246 1 Capsule(s) Oral every day 11/20/19 20 2019 Inactive amoxicillin 250 mg capsule RxNorm: 962478 1 Capsule(s) Oral three times a day 11/07/19 20 2019 Inactive multivitamin with iron-mineral tablet RxNorm: 1 Tablet(s) Oral every day 10/29/19 20 2021 Inactive cetirizine 10 mg tablet RxNorm: 0372921 1 Tablet(s) PO daily 10/20/19 20 2019 Inactive This refill negates all other refills of this medication. Please do not auto refill Singulair 10 mg tablet RxNorm: 396552 1 Tablet(s) PO daily 10/20/19 20 2019 Inactive This refill negates all other refills of this medication gabapentin 300 mg capsule RxNorm: 256150 1 Capsule(s) PO TID 10/20/19 20 2019 Inactive lisinopril 2.5 mg tablet RxNorm: 269345 1 Tablet(s) PO daily 10/20/19 20 2019 Inactive levothyroxine 50 mcg tablet RxNorm: 647277 1 Tablet(s) PO daily 10/20/19 20 2019 Inactive This refill negates all other refills of this medication fenugreek seed extract 500 mg capsule RxNorm: 1 Capsule(s) Oral three times a day 10/17/19 20 2021 Inactive hydrochlorothiazide 25 mg tablet RxNorm: 913833 1 Tablet(s) Oral every day 10/17/19 20 2019 Inactive Alcohol Prep Pads RxNorm: 048970 1 Patch TOP QAM 10/16/19 20 2020 Inactive loperamide 2 mg tablet RxNorm: 633874 1 Tablet(s) Oral as needed take one [...] 2019 Inactive hydrochlorothiazide 25 mg tablet RxNorm: 318239 1 Tablet(s) Oral every day 09/19/20 19 2019 Inactive Sudafed 12 Hour 120 mg tablet,extended release RxNorm: 2069145 1 Tablet(s) Oral every 12 hours as needed 09/11/20 19 2018 Inactive omeprazole 20 mg capsule,delayed release RxNorm: 045303 1 Capsule(s) Oral every day 09/07/20 19 2019 Inactive Sudafed 12 Hour 120 mg tablet,extended release RxNorm: 9421054 1 Tablet(s) Oral every 12 hours as needed 09/04/20 19 2018 Inactive pantoprazole 40 mg tablet,delayed release RxNorm: 610386 1 Tablet(s) Oral every day 08/24/20 19 2018 Inactive discontinue any other H2Blkr. and PPI albuterol sulfate 2.5 mg/3 mL (0.083 %) solution for nebulization RxNorm: 624997 1 Vial Inhalation every four hours as needed as needed for dyspnea 08/17/20 19 2019 Inactive 60/box. This refill negates all other refills of this medication. Please do not fill early. Please do not auto refill. Symbicort 160 mcg-4.5 mcg/actuation HFA aerosol inhaler RxNorm: 3237237 2 Puff(s) INH BID 08/17/20 19 No Stop Date Active Alcohol Prep Pads RxNorm: 167566 1 Patch TOP QAM 08/17/20 19 2019 Inactive Ventolin HFA 90 mcg/actuation aerosol inhaler RxNorm: 021988 2 Puff(s) INH QID 08/09/20 19 2019 Inactive Please do not fill early. Please do not auto refill. This refill negates all other refills of this medication True Metrix Glucose Test Strip RxNorm: 1 Test Strips Miscellaneous QAM 08/09/20 19 2019 Inactive 100/container atorvastatin 40 mg tablet RxNorm: 971699 1 Tablet(s) Oral every day 07/04/20 19 2019 Inactive levmetamfetamine 50 mg nasal inhaler RxNorm: 1 Unit(s) NASAL Q3-4H Do not use more than every 3 hours or 8 times/24hours 06/26/20 19 2021 Inactive Please do not auto refill. This refill negates all other refills of this medication buspirone 7.5 mg tablet RxNorm: 312596 1 Tablet(s) PO BID 06/26/20 19 2020 Inactive This refill negates all other refills of this medication hydrochlorothiazide 12.5 mg tablet RxNorm: 589009 1 Tablet(s) PO QAM 06/26/20 19 2019 Inactive Ventolin HFA 90 mcg/actuation aerosol inhaler RxNorm: 637764 2 Puff(s) INH QID 06/26/20 19 2018 Inactive Please do not fill early. Please do not auto refill. This refill negates all other refills of this medication Singulair 10 mg tablet RxNorm: 132697 1 Tablet(s) PO daily 06/26/20 19 2019 Inactive This refill negates all other refills of this medication cetirizine 10 mg tablet RxNorm: 4764855 1 Tablet(s) PO daily 06/26/20 19 2019 Inactive This refill negates all other refills of this medication. Please do not auto refill levothyroxine 50 mcg tablet RxNorm: 233611 1 Tablet(s) PO daily 06/26/20 19 2019 Inactive This refill negates all other refills of this medication diclofenac sodium 75 mg tablet,delayed release RxNorm: 445078 1 Tablet(s) PO BID 06/26/20 19 2019 Inactive This refill negates all other refills of this medication ranitidine 150 mg tablet RxNorm: 245231 1 Tablet(s) PO BID 06/26/20 19 2018 Inactive This refill negates all other refills of this medication Calcium 600-D3 Plus (mag-zinc) 600 mg calcium-800 unit-50 mg tablet RxNorm: 1 Tablet(s) PO daily take an additonal tablet for itching. 06/26/20 19 2018 Inactive This refill negates all other refills of this medication albuterol sulfate 2.5 mg/3 mL (0.083 %) solution for nebulization RxNorm: 367183 1 Vial INH QID 06/26/20 19 2018 Inactive 60/box. This refill negates all other refills of this medication. Please do not fill early. Please do not auto refill. lisinopril 2.5 mg tablet RxNorm: 227225 1 Tablet(s) PO daily 06/21/20 19 2019 Inactive gabapentin 300 mg capsule RxNorm: 414968 1 Capsule(s) PO TID 06/21/20 19 2019 Inactive atorvastatin 20 mg tablet RxNorm: 201218 1 Tablet(s) PO QHS 06/07/20 19 2018 Inactive This refill negates all other refills of this medication TRUEplus Lancets 30 gauge RxNorm: 1 Lancets Miscellaneous QAM 05/29/20 19 2018 Inactive 100/box gabapentin 300 mg capsule RxNorm: 055808 1 Capsule(s) PO TID 05/03/20 19 2018 Inactive Flintstones Complete (iron) 18 mg iron chewable tablet RxNorm: 1 Tablet(s) PO daily 04/04/20 19 2021 Inactive This refill negates all other refills of this medication gabapentin 300 mg capsule RxNorm: 950843 1 Capsule(s) PO TID as needed 02/01/20 19 2018 Inactive True Metrix Glucose Test Strip RxNorm: 1 Test Strips Miscellaneous QAM 02/01/20 19 2018 Inactive 100/container Alcohol Prep Pads RxNorm: 403550 1 Patch TOP QAM 02/01/20 19 2018 Inactive TRUEplus Lancets 30 gauge RxNorm: 1 Lancets Miscellaneous QAM 02/01/20 19 2018 Inactive 100/box lisinopril 2.5 mg tablet RxNorm: 760543 1 Tablet(s) PO daily 12/28/19 19 2018 Inactive ranitidine 150 mg tablet RxNorm: 510746 1 Tablet(s) PO BID 10/21/19 19 2018 Inactive This refill negates all other refills of this medication albuterol sulfate 2.5 mg/3 mL (0.083 %) solution for nebulization RxNorm: 522809 1 Vial INH QID 10/21/19 19 2018 [...] this medication gabapentin 300 mg capsule RxNorm: 219716 1 Capsule(s) PO TID as needed 10/21/19 19 2018 Inactive atorvastatin 20 mg tablet RxNorm: 836064 1 Tablet(s) PO QHS 10/21/192018 Inactive This refill negates all other refills of this medication trazodone 50 mg tablet RxNorm: 806430 1 Tablet(s) PO QHS 10/21/192018 Inactive This refill negates all other refills of this medication Ventolin HFA 90 mcg/actuation aerosol inhaler RxNorm: 478974 2 Puff(s) INH QID 10/21/192018 Inactive Please do not fill early. Please do not auto refill. This refill negates all other refills of this medication Calcium 600-D3 Plus 600 mg calcium-800 unit-50 mg tablet RxNorm: 1 Tablet(s) PO daily take an additonal tablet for itching. 10/21/192018 Inactive This refill negates all other refills of this medication Singulair 10 mg tablet RxNorm: 730027 1 Tablet(s) PO daily 10/21/1904/18/ 2019 Inactive This refill negates all other refills of this medication buspirone 7.5 mg tablet RxNorm: 960020 1 Tablet(s) PO BID 10/21/19 19 2018 Inactive This refill negates all other refills of this medication diclofenac sodium 75 mg tablet,delayed release RxNorm: 714077 1 Tablet(s) PO BID 10/21/19 19 2018 Inactive This refill negates all other refills of this medication hydrochlorothiazide 12.5 mg tablet RxNorm: 670986 1 Tablet(s) PO QAM 10/21/19 19 2018 Inactive metoprolol succinate ER 50 mg tablet,extended release 24 hr RxNorm: 998232 1 Tablet(s) PO daily 10/21/19 19 2018 Inactive This refill negates all other refills of this medication levothyroxine 50 mcg tablet RxNorm: 378983 1 Tablet(s) PO daily 10/21/19 19 2018 Inactive This refill negates all other refills of this medication cetirizine 10 mg tablet RxNorm: 7566812 1 Tablet(s) PO daily 10/21/19 19 2018 Inactive This refill negates all other refills of this medication. Please do not auto refill Flintstones Complete (iron) 18 mg iron chewable tablet RxNorm: 1 Tablet(s) PO daily 10/21/19 19 2018 Inactive This refill negates all other refills of this medication buspirone 7.5 mg tablet RxNorm: 073033 1 Tablet(s) PO BID 10/12/192018 Inactive cetirizine 10 mg tablet RxNorm: 8698893 1 Tablet(s) PO daily 09/28/202018 Inactive Guaiasorb DM 10 mg-100 mg/5 mL oral liquid RxNorm: 425054 10 Milliliter(s) PO As needed every 4 hr 09/24/20 18 2018 Inactive Vicks Vaporub 4.7 %-1.2 %-2.6 % topical ointment RxNorm: 7729128 1 Application TOP TID 09/24/20 18 2018 Inactive levmetamfetamine 50 mg nasal inhaler RxNorm: 1 Unit(s) NASAL Q3-4H 09/24/20 18 2017 Inactive sertraline 50 mg tablet RxNorm: 466279 1 Tablet(s) PO daily 09/09/20 18 2018 Inactive Please note dose trazodone 50 mg tablet RxNorm: 010286 1 Tablet(s) PO QHS 09/06/20 18 2018 Inactive sertraline 50 mg tablet RxNorm: 303381 1 Tablet(s) PO daily 09/06/20 18 2017 Inactive amoxicillin 500 mg tablet RxNorm: 277630 1 Tablet(s) PO Q12H 08/31/20 18 2017 Inactive albuterol sulfate 2.5 mg/3 mL (0.083 %) solution for nebulization RxNorm: 013275 1 Vial INH QID 08/10/20 18 2018 Inactive 60/box. Please do not fill early. Please do not auto refill. Prozac 10 mg capsule RxNorm: 427315 1 Capsule(s) PO daily 08/09/20 18 2017 Inactive buspirone 7.5 mg tablet RxNorm: 165303 1 Tablet(s) PO BID 08/09/20 18 2018 Inactive gabapentin 300 mg capsule RxNorm: 868855 1 Capsule(s) PO TID as needed 08/01/20 18 2018 Inactive hydrochlorothiazide 12.5 mg tablet RxNorm: 606161 1 Tablet(s) PO QAM 08/01/20 18 2018 Inactive ranitidine 150 mg tablet RxNorm: 566502 1 Tablet(s) PO BID 08/01/20 18 2018 Inactive Macrobid 100 mg capsule RxNorm: 420695 1 Capsule(s) PO Q12H 06/21/20 18 2017 Inactive Singulair 10 mg tablet RxNorm: 491233 1 Tablet(s) PO daily 06/14/20 18 2018 Inactive Ventolin HFA 90 mcg/actuation aerosol inhaler RxNorm: 5534858 2 Puff(s) INH QID 06/14/20 18 2018 Inactive Singulair 10 mg tablet RxNorm: 783290 1 Tablet(s) PO daily 06/14/20 18 2017 Inactive buspirone 7.5 mg tablet RxNorm: 824877 1 Tablet(s) PO BID 06/14/20 18 2017 Inactive Prozac 10 mg capsule RxNorm: 052112 1 Capsule(s) PO daily 06/14/20 18 2017 Inactive Neilmed Pediatric Sinus Rinse Refill packet RxNorm: 1 Unit Dose NASAL PRN 05/31/20 18 2021 Inactive diclofenac sodium 75 mg tablet,delayed release RxNorm: 726298 1 Tablet(s) PO BID 05/31/20 18 2017 Inactive lisinopril 2.5 mg tablet RxNorm: 699342 1 Tablet(s) PO daily 05/31/20 18 2017 Inactive metoprolol succinate ER 50 mg tablet,extended release 24 hr RxNorm: 982711 1 Tablet(s) PO daily 05/31/20 18 2017 Inactive levothyroxine 50 mcg tablet RxNorm: 980373 1 Tablet(s) PO daily 05/31/20 18 2017 Inactive TRUEplus Lancets 30 gauge RxNorm: 1 Lancets Miscellaneous QAM 05/31/20 18 2017 Inactive 100/box Ventolin HFA 90 mcg/actuation aerosol inhaler RxNorm: 376748 2 Puff(s) INH QID 05/31/20 18 2017 Inactive Aleve 220 mg capsule RxNorm: 8226471 1 Capsule(s) PO BID 05/31/20 18 2018 Inactive ranitidine 150 mg tablet RxNorm: 070720 1 Tablet(s) PO BID 05/31/20 18 2017 Inactive gabapentin 300 mg capsule RxNorm: 687400 1 Capsule(s) PO TID as needed 05/31/20 18 2017 Inactive atorvastatin 20 mg tablet RxNorm: 710718 1 Tablet(s) PO QHS 05/31/20 18 2017 Inactive True Metrix Glucose Test Strip RxNorm: 1 Test Strips Miscellaneous QAM 05/31/20 18 2017 Inactive 50/container Calcium 600-D3 Plus 600 mg calcium-800 unit-50 mg tablet RxNorm: 1 Tablet(s) PO daily take an additonal tablet for itching. 05/31/20 18 2017 Inactive hydrochlorothiazide 12.5 mg tablet RxNorm: 415410 1 Tablet(s) PO QAM 05/31/20 18 2017 Inactive Flintstones Complete (iron) 18 mg iron chewable tablet RxNorm: 1 Tablet(s) PO daily 05/31/20 18 2017 Inactive d-mannose oral powder RxNorm: PO 18 2021 Inactive True Metrix Glucose Meter RxNorm: miscellaneous 08/17/20 19 2018 Inactive sertraline 50 mg tablet RxNorm: 264960 1 Tablet(s) PO daily 11/28/19 20 2019 Inactive loperamide 2 mg tablet RxNorm: 590339 oral 09/29/20 19 2018 Inactive Symbicort 160 mcg-4.5 mcg/actuation HFA aerosol inhaler RxNorm: 6837384 2 Puff(s) INH BID 08/17/20 19 2018 Inactive Medication Administered No Medication Administered data Results Observation Observation Code Item Item Code Result Date Service Location MICROALBUMIN (URINE) 36185 Microalbumin 21708-2 NO SPECIMEN RECEIVED mg/dL 04/04/20 21 [facility] [address], [place] [address]GVKSAFDPQHWA (URINE)78383Motdsmjreuay/Creatinine Ttffj81245-8LV SPECIMEN RECEIVED MCG/JLPTOPN8404/04/2021 [facility] [address], [place] [address]ZWSQQHJJCPKZ (URINE)99271Zlvha Iwyribdnea7261-4JZ SPECIMEN RECEIVED mg/dL04/04/2021 [facility] [address] [place] [address] Procedures Procedure Codes Date Hypertension CPT-4: HTN 04/01/2021 Functional Assessment ADLs - Patient needs direct assistance, cuing, or supervision, to perform the following safely:/*Noassistance, cuing, or supervision needed, IADLs - Patient needs direct assistance, cuing, or supervision, to perform the following safely:/taking medications, IADLs - Patient needs direct assistance,cuing, or supervision, to perform the following safely:/transportationCPT-4: DFAUnknown 04/01/2021Hypertension Hypertension Follow Up Plan/Lifestyle modification weight reduction, Hypertension Follow Up Plan/Repeat BP measurement within one month, Hypertension Follow Up Plan/Lifestyle modification including reduce salt intakeCPT-4: TPHAidogja07/30/2021Tobacco Assessment/ScreeningCPT-4: TCA03/13/2021atient Health QuestionnaireCPT-4: DPHQ03/13/2021Mini Mental State ExamCPT-4: DMMA 01/29/2021nnual Wellness Visit (Subsequent Visit)CPT-4: D074940dvanced Care PlanningCPT-4: VACP01/13/2021Fall Risk AssessmentSNOMED CT: 320973066 CPT-4: DFRA01/13/2021emmes Fany AssessmentCPT-4: DSWA12/17/2020Urinalysis, dip stickCPT-4: 715718409/24/2020Patient Health QuestionnaireCPT-4: DPHQ 08/19/2020ElectrocardiogramCPT-4: 2057889Tobacco Assessment/Screening CPT-4: 01/01/2020Fall Risk AssessmentSNOMED CT: 517731829 CPT-4: DFRA01/01/2020Functional AssessmentCPT-4: DFA01/01/2020Semmes Fany AssessmentCPT-4: DSWA11/28/2019Patient Health QuestionnaireCPT-4: DPHQ11/28/2019 Risco Fany AssessmentCPT-4: DSWA10/17/2019HypertensionCPT-4: HTN10/17/[address]: 621559985 CPT-4: DFRA09/19/2019Functional AssessmentCPT-4: DFA111/20/2018Urinalysis, dip stickCPT-4: 0355916Tobacco Assessment/ScreeningCPT-4: TCA05/24/2019 Patient Health QuestionnaireCPT-4: DPHQ05/24/2019AHA/REBECCA Classification AssessmentCPT-4: DAHA04/25/2019Controlled Substance ReportCPT-4: CTRSU07 Urinalysis, dip stickCPT-4: 8907519Urinalysis, dip stickCPT-4: 95866 03/28/20190840P7H-DdpyyktxehrcdssQAW-0: 76604BlngqdfN8X-YvjqymxjsosogkmBKZ-4: 32276 KyzcsxmG1A-DfvvfttsndltxgjGJN-6: 28769DiqrixfQ7M-AhqvttomtxbbrksCGH-3: 34776 QgxopalJ3P-MyoxyuelfgecbzvLQM-6: 32624PjbbgieV1I-VwnqghottoxawvvXBJ-7: 61126 OphrctfY9U-UmyqucuesuzokycQDB-2: [id number] ReferralSNOMED CT: [id number] CPT-4: E34Pnkdrjz Vital Signs Date Vital 04/01/2021 Blood Pressure 1: 116/84 Code: 8480-6 BMI: 53.4 Code: 37094-0 Heart Rate 1: 78 bpm Height: 4'11 Code: 8302-2 Respiratory Rate: 18 bpm SpO2: 98% Temperature: 36.3 (C) / 97.3 (F) Weight: 264 lbs 4 oz Code: 34751-4 Reason For Visit Reason For Visit Effective Dates Notes blisters 04/01/2021 diabetes mellitus 04/01/2021 hyperlipidemia disease 04/01/2021 Interim health update 04/01/2021 Encounters Encounter Performer Location Location Address Codes Magdi e HOME VISIT EST PATIENT Diagnosis: Type 2 diabetes mellitus with peripheral neuropathy[ICD10: E11.42] Diagnosis: Hypertensive heart disease with heart failure[ICD10: I11.0]Anna Bourgeois [address] [place], [place] [id number] CPT-4: 5827052 Plan of Care Planned Activity Notes Codes Status Date Visit Plan: R63.0-783.0 Anorexia symptoms persistent advised to continue to try small, more frequent food intake, discussed limiting carbonated beverages as this may make her feel full taking away appetite discussed benefits of [place] Instant Breakfast not using note weight has [...] heart disease with heart failure BP noted cont hctz and lisinipril 04/01/2021 HTN assessment [...] Dr. Garcia, pulmonology -need to schedule appt F43.23-309.28 Adjustment disorder with mixed anxiety and depressed mood routine follow up [facility] 03/13/2021 PHQ 9 Score 4 Sertraline increased to 200mg daily 04/01/2021 Functional Assessment independent with ADLs E03.9-244.9 Hypothyroidism, [...] with band-aid wounds appear to be healing withouts/s of infection, advise to notify office for [...] new appt for pap in June 2020-[facility]-reports pap negative-records requested Z01.89-V72.85 Encounter for screening for tobacco use 03/13/2021 Tobacco screen complete- patient denies ever smoking Z12.31-V76.12 (Z12.31-V76.12) Encounter for screening mammogram for malignant neoplasm of breast Z12.11-V76.51 (Z12.11- V76.51) Encounter for screening for malignant neoplasm of colon Preventative testing not indicated due to age *I reviewed the most recent CDC guidelines regarding Covid-19/Coronavirus with the patient/caregiver/designee 04/01/2021atient Education: Patient Medication WgawckcGgzsoaubl73/30/2021 Patient Education: QdkepygmZtmqxgarv99/30/2021ppointment: Anna Culver WPtel: [phone] [place] [address] USETV03/24/2021ppointment: Anna Culver WPtel: [address] [place] [address] USETV03/13/2021ppointment: Anna Culver WPtel: [address] [place] [address] [id number]: Chivo Bishop WPtel: [address] [place] [address] [id number]: Anna Culver WPtel: [address] [place] [address] USETV01/13/2021ppointment: Anna Culver WPtel: [address] [place] [address] [id number]: Chivo Bishop WPtel: [phone] [place] [address] USETV11/28/2020ppointment: Anna Culver WPtel: [address] [place] [address] USETV11/24/2020ppointment: Anna Culver WPtel: [address] [place] [address] [id number]: Anna Culver WPtel: [id number] [facility] [address] [place] [address] [id number]: Anna Culver WPtel: [phone] [place] [address] [place] [address] USETV110/26/2019Appointment: Anna Culver WPtel: [phone] [place] [address] USETV110/19/2019Appointment: Anna Culver WPtel: [phone] [place] [address] [place] [address] USETV1Appointment: Anna Culvre WPtel: [phone] [place] [address] USETV10Appointment: [facility]: [facility] [id number]: Anna Culver WPtel: [address] [place] [address] [id number]: Anna Culver WPtel: [address] [place] [address] [id number]: Anna Culver WPtel: [address] [place] [address] [id number]/Appointment: Anna Culver WPtel: [phone] [place] [address] [place] [address] [id number]/Appointment: Anna Culver WPtel: [phone] [place] [address] [place] [address] [id number]: Anna Culver WPtel: [phone] [place] [address] [place] [address] [id number]: Anna Culver WPtel: [phone] [facility] [address] [place] [address] [id number]: Anna Culver WPtel: [phone] [place] [address] [address] [place] [address] [id number]: Anna Culver WPtel: [address] [place] [address] [address] [place] [address] [id number]: Anna Culver WPtel: [address] [place] [address] [place] [address] [id number]: Sudha Hernadez WPtel: [address] [facility] [address] [id number]: Sudha Hernadez WPtel: [address] [facility] [address] [id number]: Charlene Oropeza WPtel: [address] [facility] [address] [id number]: Enedelia [id number]: Charlene Oropeza WPtel: [address] [facility] [address] [id number]: Rasta Palafox WPtel: [address] [facility] [address] [id number]: Hema Palafoxothy WPtel: [address] [facility] [address] [id number]: Rasta Palafox WPtel: [address] [facility] [address] [id number]: Rasta Palafox WPtel: [address] [facility] [address] [id number]: Pending Gynecology Referral InformationReferral ProcessedReferral: Pending Pulmonology Referral InformationReferralProcessed Referral: Pending Psychiatry Referral InformationReferralInitiatedReferral: Pending Respiratory Services Referral InformationReferralInitiatedReferral: Pending Ophthalmology Referral InformationReferralInitiatedReferral: [facility] WPtel: [address] [facility] [address] [id number] USWriter placed a call out to the patient to notify her that it has been recommended that she be seenby a urologist. Patient agreed to be seen, does not have a provider of choice and no transportationissues. Litigation Legal Secretary faxed referral and clinical notes to [facility] in [place], [place] near the patient's home. Patient to [...] seen and prefers a provider in the [place] or [facility]. Litigation Legal Secretary placed a call out to everyone listed in the area and the only location that was able to accept the patient's insurance was [place] [address] [place] [address] and spoke with Maylin. Maylin asked that the patient's referral, face sheet and visit notes be faxed to . Litigation Legal Secretary faxed over requested documents. Patient appointment confirmation letter generated and mailed to her home address. Patient to call to schedule an appointment.ProcessedReferral: [facility] WPtel: [address] [facility] [address] [id number] USPatient notified that it has been advised that she be seen by Neurology. Patient agreed to be seen and prefers to be seen by a provider in the [place], [place] area. Patient denies any concerns with transportation, and prefers to schedule her own appointment. Litigation Legal Secretary placed a call out to [facility] [...] plan reviewed with patient . R63.0-783.0 Anorexia symptoms persistent advised to continue to try small, more frequent food intake, discussed limiting carbonated beverages as this may make her feel full taking away appetite discussed benefits of [place] Instant Breakfast not using note weight has [...] demand - 01/29/2021 Hgb A1C 5.3 10/17/2019 Riscocyril Soares 7/10-instructed on good daily foot care routine follow up with Dr. Gonzales, podiatry-diabetic shoes- next appt 03/30/2021- had steroid injection in left heel, another appt in April 2021 ophthalmology confirms visit, but doesn't remember when 01/01/2020 FRA complete denies fall I10-401.9 Essential (primary) hypertension I11.0-402.91 Hypertensive heart disease with heart failure BP noted cont hctz and lisinipril 04/01/2021 HTN assessment [...] Dr. Garcia, pulmonology -need to schedule appt F43.23-309.28 Adjustment disorder with mixed anxiety and depressed mood routine follow up [facility] 03/13/2021 PHQ 9 Score 4 Sertraline increased to 200mg daily 04/01/2021 Functional Assessment independent with ADLs E03.9-244.9 Hypothyroidism, [...] new appt for pap in June 2020-[facility]-reports pap negative-recordsrequested Z01.89-V72.85 Encounter for screening for tobacco use 03/13/2021 Tobacco screen complete-patient denies ever smoking Z12.31-V76.12 (Z12.31-V76.12) Encounter for screening mammogram for malignant neoplasm of breast Z12.11-V76.51 (Z12.11-V76.51) Encounter for screening for malignant neoplasm of colon Preventative testing not indicated due to age *I reviewed the most recent CDC guidelines regarding Covid-19/Coronavirus with the patient/caregiver/designee 04/01/2021 Medical Equipment No Medical Equipment data Advance Directives No Advance Directive data
--- OUTSIDE RECORDS SUMMARY | 2023-12-07 02:16 | XMS_ITS | CCD ---
Author Name Leena Culver NP Address [id number] [place] [address] [address] [place] [address] Phone [facility] Phone Care Team Providers Care Certified Ophthalmic Assistant Name Role Phone Anna Culver NP Primary Care Provider Unav ailable Unavailable Chronic Care Management Unavaila ble Summary Purpose DataExchange Insurance Providers Payer name Policy type / Coverage type Covered republican ID Effective Begin Date Effective End Date SUKI MAYO [id number] Unknown Unknown Family history Mother Diagnosis Age [...] 05/31/2018 Education level Unknown Some High School 10th05/31/20187198OjksbilqdeGkuexsqQzlsydicok47/29/2018Tobacco historySNOMED CT: 965780994Lih never smoked or chewed vfpgjir7805/31/2018Alcohol historySNOMED CT: 883608232Uvmow drinks kvnfqzu6805/31/2018Has the patient ever used illegal drugs? UnknownHas never used illegal drugs05/31/2018DNR Order/ Advanced Directive UnknownFull Code05/31/2018 Allergies, Adverse Reactions, Alerts Substance Reaction Codes Entered Date Inactivated Date Status OxyContin itch, RxNorm: 583502 01/13/2021 No Inactive Da te Active *No known food allergies Ijfehvx4509/06/2018No Inactive DateActiveMethylprednisolonehivesRxNorm: 6902 09/06/2018No Inactive DateActive Problems Condition Codes Effective Dates Condition St atus Anorexia ICD-10: R63.0 ICD-9: 783.003/1ActiveBlisterICD-10: T14.8XXA ICD-9: 919.206/ctiveObstructive sleep apnea (adult) (pediatric)ICD-10: G47.33 ICD-9: 327.2309/ActiveType 2 diabetes mellitus with peripheral neuropathy ICD-10: E11.42 ICD-9: 250.6002/ActiveAdjustment disorder with mixed anxiety and depressed moodICD-10: F43.23 ICD-9: 309.2812/01/2018ActiveEncounter for screening for tobacco useICD-10: Z01.89 ICD-9: V72.8503ActiveHypertensive heart disease with heart failureICD- 10: I11.0 ICD-9: 402.9107/ActiveElevated liver enzymesICD-10: R74.8 ICD-9: 790.504/ctiveHyperlipidemia, unspecifiedICD-10: E78.5 ICD-9: 272.408/ActiveChronic kidney disease, stage 2 (mild)ICD-10: N18.2 ICD-9: 585.201/ctiveGERD (gastroesophageal reflux disease)ICD-10: K21.9 ICD-9: 530.8112ActiveHistory of [...] of right hand, subsequent encounterICD-10: T23.191D ICD-9: V58.89021ResolvedUrinary tract infectionICD-10: N39.0 ICD-9: 599.012/ResolvedPolyneuropathy, unspecifiedICD-10: G62.9 [...] Fill Instructions sertraline 100 mg tablet RxNorm: 797886 2 Tablet(s) Oral every day 03/13/20 21 2020 Inactive levothyroxine 50 mcg tablet RxNorm: 734001 TAKE (1) TABLET BY MOUTH DAILY 02/04/20 21 2020 Inactive metformin 500 mg tablet RxNorm: 901565 1 Tablet(s) Oral two times a day take with 500mg to equal 1000mg 01/14/20 21 2020 Inactive gabapentin 300 mg capsule RxNorm: 496084 TAKE 1 CAPSULE BY MOUTH THREE TIMES A DAY 01/14/20 21 2020 Inactive lisinopril 2.5 mg tablet RxNorm: 953680 TAKE 1 TABLET BY MOUTH DAILY 01/06/20 21 2020 Inactive gabapentin 300 mg capsule RxNorm: 567991 TAKE 1 CAPSULE BY MOUTH THREE TIMES A DAY 01/06/20 21 2020 Inactive Singulair 10 mg tablet RxNorm: 288602 TAKE (1) TABLET BY MOUTH DAILY 01/06/20 21 2020 Inactive metformin 1,000 mg tablet RxNorm: 844100 1 Tablet(s) Oral two times a day 01/06/20 21 2020 Inactive atorvastatin 40 mg tablet RxNorm: 010799 1 Tablet(s) Oral every day 12/06/19 21 2020 Inactive omeprazole 20 mg capsule,delayed release RxNorm: 793831 1 Capsule(s) Oral every evening 11/24/19 21 2020 Inactive famotidine 10 mg tablet RxNorm: 795518 1 Tablet(s) Oral every morning 11/24/19 21 2020 Inactive Alcohol Prep Pads RxNorm: 740495 USE EACH MORNING 10/14/19 21 2020 Inactive omeprazole 20 mg capsule,delayed release RxNorm: 990334 1 Capsule(s) Oral two times a day 10/13/19 21 2021 Inactive omeprazole 20 mg capsule,delayed release RxNorm: 001898 TAKE 1 CAPSULE BY MOUTH EVERY DAY 10/08/192021 Inactive Macrobid 100 mg capsule RxNorm: 312521 1 Capsule(s) Oral every 12 hours with food 10/01/202020 Inactive omeprazole 20 mg capsule,delayed release RxNorm: 247346 1 Capsule(s) Oral two times a day 09/24/202021 Inactive metformin 1,000 mg tablet RxNorm: 792884 1 Tablet(s) Oral two times a day 08/19/202020 Inactive start on September 11, 2020 metformin 500 mg tablet RxNorm: 499980 1 Tablet(s) Oral two times a day take with 500mg to equal 1000mg 08/19/20 20 2019 Inactive gabapentin 300 mg capsule RxNorm: 700749 TAKE 1 CAPSULE BY MOUTH THREE TIMES DAILY 07/11/20 20 2020 Inactive cetirizine 10 mg tablet RxNorm: 7933195 TAKE (1) TABLET BY MOUTH DAILY 07/11/20 20 2020 Inactive metformin 500 mg tablet RxNorm: 830818 1 Tablet(s) Oral two times a day 07/08/20 20 2019 Inactive loperamide 2 mg tablet RxNorm: 500762 1 Tablet(s) Oral as needed take one tablet after each loose stool, maximum of 8 tablets in 24 hours 06/24/202021 Inactive Sudafed 12 Hour 120 mg tablet,extended release RxNorm: 2839594 TAKE 1 TABLET BY MOUTH EVERY 12 HOURS NEEDED 06/11/20 20 2019 Inactive hydrochlorothiazide 25 mg tablet RxNorm: 928810 TAKE (1) TABLET BY MOUTH EVERY DAY 06/11/20 20 2019 Inactive omeprazole 20 mg capsule,delayed release RxNorm: 425349 TAKE 1 CAPSULE BY MOUTH EVERY DAY 05/14/20 20 2020 Inactive metformin 500 mg tablet RxNorm: 569376 1 Tablet(s) Oral every day 05/12/20 20 2019 Inactive True Metrix Glucose Test Strip RxNorm: 1 Test Strips Miscellaneous two times a day as needed 04/17/20 No Stop Date Active metformin 500 mg tablet RxNorm: 533637 1 Tablet(s) Oral every day 04/17/20 20 2019 Inactive diclofenac sodium 75 mg tablet,delayed release RxNorm: 273103 1 Tablet(s) PO BID 04/14/20 20 2021 Inactive This refill negates all other refills of this medication Sudafed 12 Hour 120 mg tablet,extended release RxNorm: 9565164 TAKE 1 TABLET BY MOUTH EVERY 12 HOURS NEEDED 03/14/20 20 2019 Inactive True Metrix Glucose Test Strip RxNorm: 1 Test Strips Miscellaneous every morning 03/13/20 20 2019 Inactive 100/container True Metrix Glucose Test Strip RxNorm: 1 Test Strips Miscellaneous QA 02/22/20 20 2019 Inactive 100/container loperamide 2 mg tablet RxNorm: 559035 1 Tablet(s) Oral as needed take one tablet after each loose stool, maximum of 8 tablets in 24 hours 02/22/20 20 2019 Inactive cetirizine 10 mg tablet RxNorm: 8031990 1 Tablet(s) PO daily 01/17/20 20 2019 Inactive loperamide 2 mg tablet RxNorm: 472323 1 Tablet(s) Oral as needed take one tablet after each loose stool, maximum of 8 tablets in 24 hours 01/17/20 20 2019 Inactive quetiapine 100 mg tablet RxNorm: 382559 1 Tablet(s) Oral every night at bedtime 01/17/20 20 2019 Inactive levothyroxine 50 mcg tablet RxNorm: 583574 1 Tablet(s) PO daily 01/17/20 20 2020 Inactive gabapentin 300 mg capsule RxNorm: 626703 1 Capsule(s) PO TID 01/17/20 20 2019 Inactive levothyroxine 50 mcg tablet RxNorm: 164105 1 Tablet(s) PO daily 01/15/20 20 2019 Inactive lisinopril 2.5 mg tablet RxNorm: 066962 1 Tablet(s) PO daily 01/15/20 20 2020 Inactive gabapentin 300 mg capsule RxNorm: 218989 1 Capsule(s) PO TID 01/15/20 20 2019 Inactive cetirizine 10 mg tablet RxNorm: 7813265 1 Tablet(s) PO daily 01/15/20 20 2019 Inactive Singulair 10 mg tablet RxNorm: 666103 1 Tablet(s) PO daily 01/15/20 20 2020 Inactive gentamicin 0.3 % eye drops RxNorm: 243599 1 Drop(s) ophthalmic (eye) four times a day 12/29/19 20 2019 Inactive gentamicin 0.3 % eye drops RxNorm: 647434 1 Drop(s) ophthalmic (eye) four times a day 12/29/19 20 2019 Inactive gentamicin 0.3 % eye drops RxNorm: 965656 1 Drop(s) ophthalmic (eye) four times a day 12/29/19 20 2019 Inactive hydrochlorothiazide 25 mg tablet RxNorm: 371479 1 Tablet(s) Oral every day 12/21/19 20 2019 Inactive Sudafed 12 Hour 120 mg tablet,extended release RxNorm: 1511584 TAKE (1) TABLET BY MOUTH EVERY 12 HOURS NEEDED 12/21/19 20 2019 Inactive loperamide 2 mg tablet RxNorm: 180557 1 Tablet(s) Oral as needed take one tablet after each loose stool, maximum of 8 tablets in 24 hours 12/11/19 20 2019 Inactive loperamide 2 mg tablet RxNorm: 430554 1 Tablet(s) Oral as needed take one tablet after each loose stool, maximum of 8 tablets in 24 hours 12/11/19 20 2019 Inactive atorvastatin 40 mg tablet RxNorm: 201558 1 Tablet(s) Oral every day 11/29/19 20 2020 Inactive quetiapine 100 mg tablet RxNorm: 566406 1 Tablet(s) Oral every night at bedtime 11/28/19 20 2019 Inactive sertraline 100 mg tablet RxNorm: 582295 1 Tablet(s) Oral 11/28/19 20 2019 Inactive omeprazole 20 mg capsule,delayed release RxNorm: 263472 1 Capsule(s) Oral every day 11/20/19 20 2019 Inactive amoxicillin 250 mg capsule RxNorm: 343090 1 Capsule(s) Oral three times a day 11/07/19 20 2019 Inactive multivitamin with iron-mineral tablet RxNorm: 1 Tablet(s) Oral every day 10/29/19 20 2021 Inactive cetirizine 10 mg tablet RxNorm: 6265814 1 Tablet(s) PO daily 10/20/19 20 2019 Inactive This refill negates all other refills of this medication. Please do not auto refill Singulair 10 mg tablet RxNorm: 224774 1 Tablet(s) PO daily 10/20/19 20 2019 Inactive This refill negates all other refills of this medication gabapentin 300 mg capsule RxNorm: 131268 1 Capsule(s) PO TID 10/20/19 20 2019 Inactive lisinopril 2.5 mg tablet RxNorm: 351204 1 Tablet(s) PO daily 10/20/19 20 2019 Inactive levothyroxine 50 mcg tablet RxNorm: 943991 1 Tablet(s) PO daily 10/20/19 20 2019 Inactive This refill negates all other refills of this medication fenugreek seed extract 500 mg capsule RxNorm: 1 Capsule(s) Oral three times a day 10/17/19 20 2021 Inactive hydrochlorothiazide 25 mg tablet RxNorm: 766734 1 Tablet(s) Oral every day 10/17/19 20 2019 Inactive Alcohol Prep Pads RxNorm: 238038 1 Patch TOP QAM 10/16/192020 Inactive loperamide 2 mg tablet RxNorm: 629196 1 Tablet(s) Oral as needed take one [...] 2019 Inactive hydrochlorothiazide 25 mg tablet RxNorm: 320392 1 Tablet(s) Oral every day 09/19/20 19 2019 Inactive Sudafed 12 Hour 120 mg tablet,extended release RxNorm: 9710942 1 Tablet(s) Oral every 12 hours as needed 09/11/20 19 2018 Inactive omeprazole 20 mg capsule,delayed release RxNorm: 691683 1 Capsule(s) Oral every day 09/07/20 19 2019 Inactive Sudafed 12 Hour 120 mg tablet,extended release RxNorm: 7058705 1 Tablet(s) Oral every 12 hours as needed 09/04/20 19 2018 Inactive pantoprazole 40 mg tablet,delayed release RxNorm: 344163 1 Tablet(s) Oral every day 08/24/20 19 2018 Inactive discontinue any other H2Blkr. and PPI albuterol sulfate 2.5 mg/3 mL (0.083 %) solution for nebulization RxNorm: 859783 1 Vial Inhalation every four hours as needed as needed for dyspnea 08/17/20 19 2019 Inactive 60/box. This refill negates all other refills of this medication. Please do not fill early. Please do not auto refill. Symbicort 160 mcg-4.5 mcg/actuation HFA aerosol inhaler RxNorm: 6973616 2 Puff(s) INH BID 08/17/20 19 No Stop Date Active Alcohol Prep Pads RxNorm: 747284 1 Patch TOP QAM 08/17/20 19 2019 Inactive Ventolin HFA 90 mcg/actuation aerosol inhaler RxNorm: 456306 2 Puff(s) INH QID 08/09/20 19 2019 Inactive Please do not fill early. Please do not auto refill. This refill negates all other refills of this medication True Metrix Glucose Test Strip RxNorm: 1 Test Strips Miscellaneous QAM 08/09/20 19 2019 Inactive 100/container atorvastatin 40 mg tablet RxNorm: 062321 1 Tablet(s) Oral every day 07/04/20 19 2019 Inactive levmetamfetamine 50 mg nasal inhaler RxNorm: 1 Unit(s) NASAL Q3-4H Do not use more than every 3 hours or 8 times/24hours 06/26/20 19 2021 Inactive Please do not auto refill. This refill negates all other refills of this medication buspirone 7.5 mg tablet RxNorm: 481429 1 Tablet(s) PO BID 06/26/20 19 2020 Inactive This refill negates all other refills of this medication hydrochlorothiazide 12.5 mg tablet RxNorm: 059756 1 Tablet(s) PO QAM 06/26/20 19 2019 Inactive Ventolin HFA 90 mcg/actuation aerosol inhaler RxNorm: 811599 2 Puff(s) INH QID 06/26/20 19 2018 Inactive Please do not fill early. Please do not auto refill. This refill negates all other refills of this medication Singulair 10 mg tablet RxNorm: 288363 1 Tablet(s) PO daily 06/26/20 19 2019 Inactive This refill negates all other refills of this medication cetirizine 10 mg tablet RxNorm: 8304373 1 Tablet(s) PO daily 06/26/20 19 2019 Inactive This refill negates all other refills of this medication. Please do not auto refill levothyroxine 50 mcg tablet RxNorm: 544482 1 Tablet(s) PO daily 06/26/20 19 2019 Inactive This refill negates all other refills of this medication diclofenac sodium 75 mg tablet,delayed release RxNorm: 057019 1 Tablet(s) PO BID 06/26/20 19 2019 Inactive This refill negates all other refills of this medication ranitidine 150 mg tablet RxNorm: 041397 1 Tablet(s) PO BID 09/24/2018 Inactive This refill negates all other refills of this medication Calcium 600-D3 Plus (mag-zinc) 600 mg calcium-800 unit-50 mg tablet RxNorm: 1 Tablet(s) PO daily take an additonal tablet for itching. 06/26/20 19 2018 Inactive This refill negates all other refills of this medication albuterol sulfate 2.5 mg/3 mL (0.083 %) solution for nebulization RxNorm: 359931 1 Vial INH QID 06/26/20 19 2018 Inactive 60/box. This refill negates all other refills of this medication. Please do not fill early. Please do not auto refill. lisinopril 2.5 mg tablet RxNorm: 632038 1 Tablet(s) PO daily 06/21/20 19 2019 Inactive gabapentin 300 mg capsule RxNorm: 644184 1 Capsule(s) PO TID 06/21/20 19 2019 Inactive atorvastatin 20 mg tablet RxNorm: 802840 1 Tablet(s) PO QHS 06/07/20 19 2018 Inactive This refill negates all other refills of this medication TRUEplus Lancets 30 gauge RxNorm: 1 Lancets Miscellaneous QAM 05/29/20 19 2018 Inactive 100/box gabapentin 300 mg capsule RxNorm: 878997 1 Capsule(s) PO TID 05/03/20 19 2018 Inactive Flintstones Complete (iron) 18 mg iron chewable tablet RxNorm: 1 Tablet(s) PO daily 04/04/202021 Inactive This refill negates all other refills of this medication gabapentin 300 mg capsule RxNorm: 658974 1 Capsule(s) PO TID as needed 02/01/20 19 2018 Inactive True Metrix Glucose Test Strip RxNorm: 1 Test Strips Miscellaneous QAM 02/01/20 19 2018 Inactive 100/container Alcohol Prep Pads RxNorm: 794121 1 Patch TOP QAM 02/01/20 19 2018 Inactive TRUEplus Lancets 30 gauge RxNorm: 1 Lancets Miscellaneous QAM 02/01/20 2018 Inactive 100/box lisinopril 2.5 mg tablet RxNorm: 417653 1 Tablet(s) PO daily 12/28/192018 Inactive ranitidine 150 mg tablet RxNorm: 700271 1 Tablet(s) PO BID 10/21/192018 Inactive This refill negates all other refills of this medication albuterol sulfate 2.5 mg/3 mL (0.083 %) solution for nebulization RxNorm: 245928 1 Vial INH QID 10/21/192018 Inactive 60/box. [...] this medication gabapentin 300 mg capsule RxNorm: 117899 1 Capsule(s) PO TID as needed 10/21/192018 Inactive atorvastatin 20 mg tablet RxNorm: 308253 1 Tablet(s) PO QHS 10/21/192018 Inactive This refill negates all other refills of this medication trazodone 50 mg tablet RxNorm: 955791 1 Tablet(s) PO QHS 10/21/192018 Inactive This refill negates all other refills of this medication Ventolin HFA 90 mcg/actuation aerosol inhaler RxNorm: 044565 2 Puff(s) INH QID 10/21/192018 Inactive Please do not fill early. Please do not auto refill. This refill negates all other refills of this medication Calcium 600-D3 Plus 600 mg calcium-800 unit-50 mg tablet RxNorm: 1 Tablet(s) PO daily take an additonal tablet for itching. 10/21/192018 Inactive This refill negates all other refills of this medication Singulair 10 mg tablet RxNorm: 128332 1 Tablet(s) PO daily 10/21/192018 Inactive This refill negates all other refills of this medication buspirone 7.5 mg tablet RxNorm: 716223 1 Tablet(s) PO BID 10/21/19 19 2018 Inactive This refill negates all other refills of this medication diclofenac sodium 75 mg tablet,delayed release RxNorm: 465461 1 Tablet(s) PO BID 10/21/19 19 2018 Inactive This refill negates all other refills of this medication hydrochlorothiazide 12.5 mg tablet RxNorm: 415752 1 Tablet(s) PO QAM 10/21/19 19 2018 Inactive metoprolol succinate ER 50 mg tablet,extended release 24 hr RxNorm: 985399 1 Tablet(s) PO daily 10/21/19 19 2018 Inactive This refill negates all other refills of this medication levothyroxine 50 mcg tablet RxNorm: 464302 1 Tablet(s) PO daily 10/21/192018 Inactive This refill negates all other refills of this medication cetirizine 10 mg tablet RxNorm: 9389487 1 Tablet(s) PO daily 10/21/19 19 2018 Inactive This refill negates all other refills of this medication. Please do not auto refill Flintstones Complete (iron) 18 mg iron chewable tablet RxNorm: 1 Tablet(s) PO daily 10/21/192018 Inactive This refill negates all other refills of this medication buspirone 7.5 mg tablet RxNorm: 404323 1 Tablet(s) PO BID 10/12/192018 Inactive cetirizine 10 mg tablet RxNorm: 3747086 1 Tablet(s) PO daily 09/28/202018 Inactive Guaiasorb DM 10 mg-100 mg/5 mL oral liquid RxNorm: 516162 10 Milliliter(s) PO As needed every 4 hr 09/24/202018 Inactive Vicks Vaporub 4.7 %-1.2 %-2.6 % topical ointment RxNorm: 3225078 1 Application TOP TID 09/24/20 18 2018 Inactive levmetamfetamine 50 mg nasal inhaler RxNorm: 1 Unit(s) NASAL Q3-4H 09/24/20 18 2017 Inactive sertraline 50 mg tablet RxNorm: 053528 1 Tablet(s) PO daily 09/09/20 18 2018 Inactive Please note dose trazodone 50 mg tablet RxNorm: 358687 1 Tablet(s) PO QHS 09/06/20 18 2018 Inactive sertraline 50 mg tablet RxNorm: 668448 1 Tablet(s) PO daily 09/06/20 18 2017 Inactive amoxicillin 500 mg tablet RxNorm: 381575 1 Tablet(s) PO Q12H 08/31/20 18 2017 Inactive albuterol sulfate 2.5 mg/3 mL (0.083 %) solution for nebulization RxNorm: 903677 1 Vial INH QID 08/10/20 18 2018 Inactive 60/box. Please do not fill early. Please do not auto refill. Prozac 10 mg capsule RxNorm: 993936 1 Capsule(s) PO daily 08/09/20 18 2017 Inactive buspirone 7.5 mg tablet RxNorm: 005962 1 Tablet(s) PO BID 08/09/20 18 2018 Inactive gabapentin 300 mg capsule RxNorm: 199191 1 Capsule(s) PO TID as needed 08/01/20 18 2018 Inactive hydrochlorothiazide 12.5 mg tablet RxNorm: 710982 1 Tablet(s) PO QAM 08/01/20 18 2018 Inactive ranitidine 150 mg tablet RxNorm: 183321 1 Tablet(s) PO BID 08/01/20 18 2018 Inactive Macrobid 100 mg capsule RxNorm: 015831 1 Capsule(s) PO Q12H 06/21/20 18 2017 Inactive Singulair 10 mg tablet RxNorm: 629836 1 Tablet(s) PO daily 06/14/20 18 2018 Inactive Ventolin HFA 90 mcg/actuation aerosol inhaler RxNorm: 9126476 2 Puff(s) INH QID 06/14/20 18 2018 Inactive Singulair 10 mg tablet RxNorm: 842167 1 Tablet(s) PO daily 06/14/20 18 2017 Inactive buspirone 7.5 mg tablet RxNorm: 888451 1 Tablet(s) PO BID 06/14/20 18 2017 Inactive Prozac 10 mg capsule RxNorm: 959354 1 Capsule(s) PO daily 06/14/20 18 2017 Inactive Neilmed Pediatric Sinus Rinse Refill packet RxNorm: 1 Unit Dose NASAL PRN 05/31/20 18 2021 Inactive diclofenac sodium 75 mg tablet,delayed release RxNorm: 022968 1 Tablet(s) PO BID 05/31/20 18 2017 Inactive lisinopril 2.5 mg tablet RxNorm: 221144 1 Tablet(s) PO daily 05/31/20 18 2017 Inactive metoprolol succinate ER 50 mg tablet,extended release 24 hr RxNorm: 139496 1 Tablet(s) PO daily 05/31/20 18 2017 Inactive levothyroxine 50 mcg tablet RxNorm: 705521 1 Tablet(s) PO daily 05/31/20 18 2017 Inactive TRUEplus Lancets 30 gauge RxNorm: 1 Lancets Miscellaneous QAM 05/31/20 18 2017 Inactive 100/box Ventolin HFA 90 mcg/actuation aerosol inhaler RxNorm: 580264 2 Puff(s) INH QID 05/31/20 18 2017 Inactive Aleve 220 mg capsule RxNorm: 3253147 1 Capsule(s) PO BID 05/31/20 18 2018 Inactive ranitidine 150 mg tablet RxNorm: 796973 1 Tablet(s) PO BID 05/31/20 18 2017 Inactive gabapentin 300 mg capsule RxNorm: 728445 1 Capsule(s) PO TID as needed 05/31/20 18 2017 Inactive atorvastatin 20 mg tablet RxNorm: 182461 1 Tablet(s) PO QHS 05/31/20 18 2017 Inactive True Metrix Glucose Test Strip RxNorm: 1 Test Strips Miscellaneous QAM 05/31/20 18 2017 Inactive 50/container Calcium 600-D3 Plus 600 mg calcium-800 unit-50 mg tablet RxNorm: 1 Tablet(s) PO daily take an additonal tablet for itching. 05/31/20 18 2017 Inactive hydrochlorothiazide 12.5 mg tablet RxNorm: 023015 1 Tablet(s) PO QAM 05/31/20 18 2017 Inactive Flintstones Complete (iron) 18 mg iron chewable tablet RxNorm: 1 Tablet(s) PO daily 05/31/20 18 2017 Inactive d-mannose oral powder RxNorm: PO 18 2021 Inactive True Metrix Glucose Meter RxNorm: miscellaneous 08/17/20 19 2018 Inactive sertraline 50 mg tablet RxNorm: 586245 1 Tablet(s) PO daily 11/28/19 20 2019 Inactive loperamide 2 mg tablet RxNorm: 721069 oral 09/29/20 19 2018 Inactive Symbicort 160 mcg-4.5 mcg/actuation HFA aerosol inhaler RxNorm: 1167237 2 Puff(s) INH BID 08/17/20 19 2018 Inactive Medication Administered No Medication Administered data Procedures Procedure Codes Date Tobacco Assessment/Screening CPT-4: TCA 08/2021 Patient Health Questionnaire CPT-4: DPHQ 08/2021 Mini Mental State Exam CPT-4: DMMA Annual Wellness Visit (Subsequent Visit) CPT-4: G0439 01/13/2021 Advanced Care Planning CPT-4: VACP 1 Fall Risk Assessment SNOMED CT: 60434841 4 CPT-4: DFRA01/13/2021emmes Fany AssessmentCPT-4: DSWA12/17/2020Urinalysis, dip stickCPT-4: 5431328Patient Health QuestionnaireCPT-4: DPHQ 08/19/2020ElectrocardiogramCPT-4: 0244947Tobacco Assessment/Screening CPT-4: TCA01/01/2020Fall Risk AssessmentSNOMED CT: 432116442 CPT-4: DFRA01/01/2020Functional AssessmentCPT-4: DFA01/01/2020Semmes Fany AssessmentCPT-4: DSWA11/28/2019Patient Health QuestionnaireCPT-4: DPHQ11/28/2019 Constantine Fany AssessmentCPT-4: DSWA10/17/2019HypertensionCPT-4: HTN10/17/[address]: 173452065 CPT-4: DFRA09/19/2019Functional AssessmentCPT-4: DFA111/20/2018Urinalysis, dip stickCPT-4: 2133749Tobacco Assessment/ScreeningCPT-4: TCA05/24/2019 Patient Health QuestionnaireCPT-4: DPHQ05/24/2019AHA/REBECCA Classification AssessmentCPT-4: DAHA04/25/2019Controlled Substance ReportCPT-4: CTRSU04/25/2019 Urinalysis, dip stickCPT-4: 363540003/28/2019Urinalysis, dip stickCPT-4: 07274 03/28/20193540T8A-CkrxcgafcshnnvkOTK-4: 49248FlexqqyJ1N-ZkahcxgtwytumdeBFC-7: 12703 DfvixlkT6Y-MiceqvpwadqvfnhKQJ-0: 48371GpnlkvlA3D-NasdaauzlwgzrsfBAJ-3: 74827 ViasjrqC6C-TfeaiwzvzhmjpexJMZ-3: 78116NtkdpahC2E-BqnmpuplawavgvyIPF-4: 81824 XxyadnoK5A-WalxgqwhisjcrpeWVD-2: 45785PnforgbOdgyzwaywy ReferralSNOMED CT: 388157782 CPT-4: M80Mufxxlt Reason For Visit Reason For Visit Effective Dates Notes blisters 03/24/2021 diabetes mellitus 03/24/2021 hyperlipidemia disease 03/24/2021 Interim health update 03/24/2021 Encounters Encounter Performer Location Location Address Codes Magdi e ([id number]) (EST PT) DETAILED TE [facility] VISIT Diagnosis: Blister[ICD10: T14.8XXA] Diagnosis: Type 2 diabetes mellitus with peripheral neuropathy[ICD10: E11.42] Diagnosis: Anorexia[ICD10: R63.0] Diagnosis: Obstructive sleep apnea (adult) (pediatric)[ICD10: G47.33]Anna CulverMallory [id number] [facility] [address] [place] [id number] CPT-4: 8277139/ Plan of Care Planned Activity Notes Codes Status Date Visit Plan: Video and audio call using Wrnch T14.8XXA-919.2 Blister 3 wounds left 3rd digit [...] full taking away appetite discussed benefits of [place] [employer] Breakfast. note weight has remained stable [...] demand - 01/29/2021 Hgb A1C 5.3 10/17/2019 Constantine Fany 10-instructed on good daily foot care [...] anxiety and depressed mood routine follow up [place] [facility] [place] 03/13/2021 PHQ 9 Score 4 Sertraline increased to 200mg daily Functional Assessment independent with ADLs E03.9-244.9 Hypothyroidism, unspecified cont levothyroxine E78.5-272.4 Hyperlipidemia, unspecified01/29/2021 alkaline phos 228 AST 40 ALT 157 [...] abnormal findings 01/13/2021 AWV complete 01/13/2021 ACP review01/13/2021 FRA complete-denies any falls 01/13/2021 Functional assessment [...] new appt for pap in June 2020-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 Production Clerk-reports pap negative-records requested Z01.89-V72.85 Encounter for screening for tobacco use 03/13/2021 Tobacco screen complete- patient denies ever smoking Z12.31-V76.12 (Z12.31-V76.12) Encounter for screening mammogram for malignant neoplasm of breast Z12.11-V76.51 (Z12.11- V76.51) Encounter for screening for malignant neoplasm of colon Preventative testing not indicated due to age *I reviewed the most recent CDC guidelines regarding Covid-19/Coronavirus with the patient/caregiver/designee 1Patient Education: DsnhurftDwsnpexsr92/22/2021Patient Education: Patient Medication LakzsluJfjvlscgh64/22/2021ppointment: Anna Culver WPtel: [address] [place] [address] USETV03/13/2021ppointment: Anna Culver WPtel: [address] [place] [address] [id number]: Chivo Bishop WPtel: [address] [place] [address] [id number]: Anna Culver WPtel: [address] [place] [address] [id number]: Anna Culver WPtel: [address] [place] [address] [id number]: Chivo Bishop WPtel: [address] [place] [address] USETV11/28/2020ppointment: Anna Culver WPtel: [phone] [place] [address] [address] [place] [address] USETV02/ppointment: Anna Culver WPtel: [phone] [place] [address] [address] [place] [address] [id number]/ppointment: Anna Culver WPtel: [id number] [place] [address] [address] [place] [address] [id number]/25/2019Appointment: Anna Culver WPtel: [id number] [place] [address] [place] [address] USETV110/26/2019Appointment: Anna Culver WPtel: [phone] [place] [address] USETV110/19/2019Appointment: Anna Culver WPtel: [address] [place] [address] USETV1Appointment: Anna Culver WPtel: [phone] [place] [address] USETV1Appointment: Gianna Birmingham: [address] [facility] [address] [id number]: Anna Culver WPtel: [phone] [place] [address] [id number]: Anna Culver WPtel: [phone] [place] [address] [place] [address] ZJZ67803/09/2020Appointment: Anna Culver WPtel: [phone] [place] [address] [place] [address] [id number]: Anna Culver WPtel: [id number] [place] [address] [id number]: Anna Culver WPtel: [address] [place] [address] [id number]: Anna Culver WPtel: [phone] [place] [address] [id number]: Anna Culver WPtel: [address] [place] [address] [id number]: Anna Culver WPtel: [phone] [place] [address] [id number]: Anna Culver WPtel: [address] [place] [address] [id number]: Anna Culver WPtel: [address] [place] [address] [id number]: Sudha Hernadez WPtel: [address] [facility] b [id number]: Sudha Hernadez WPtel: [address] [facility] [id number]: SandipCharlene WPtel: [address] [facility] [id number]: Enedelia [id number]: Charlene Oropeza WPtel: [address] [facility] [address] [id number]: Rasta Palafox WPtel: [address] [facility] [address] [id number]: Rasta Palafox WPtel: [address] [facility] [address] [id number]: Rasta Palafox WPtel: [address] [facility] [address] [id number]: Rasta Palafox WPtel: [address] [facility] [address] [id number]: Pending Gynecology Referral InformationReferral ProcessedReferral: Pending Pulmonology Referral InformationReferralProcessed Referral: Pending Psychiatry Referral InformationReferralInitiatedReferral: Pending Respiratory Services Referral InformationReferralInitiatedReferral: Pending Ophthalmology Referral InformationReferralInitiatedReferral: [facility] WPtel: [address] [place] [address] [address] [place] [address] USWriter placed a call out to the patient to notify her that it has been recommended that she be seenby a urologist. Patient agreed to be seen, does not have a provider of choice and no transportationissues. Production Planning Manager faxed referral and clinical notes to [facility] in [place], [place] near the patient's home. Patient to [...] seen and prefers a provider in the [place] or [facility]. Production Planning Manager placed a call out to everyone listed in the area and the only location that was able to accept the patient's insurance was [place] [address] [place] [address] and spoke with Maylin. Maylin asked that the patient's referral, face sheet and visit notes be faxed to . Production Planning Manager faxed over requested documents. Patient appointment confirmation letter generated and mailed to her home address. Patient to call to schedule an appointment.ProcessedReferral: [facility] WPtel: [address] [id number] USPatient notified that it has been advised that she be seen by Neurology. Patient agreed to be seen and prefers to be seen by a provider in the [place], [place] area. Patient denies any concerns with transportation, and prefers to schedule her own appointment. Production Planning Manager placed a call out to [facility] [...] patient . Video and audio call using Wrnch [id number] Blister 3 wounds left 3rd digit secondary [...] full taking away appetite discussed benefits of [place] [employer] Breakfast. note weight has remained stable [...] anxiety and depressed mood routine follow up [place] [facility] [place] 03/13/2021 PHQ 9 Score 4 Sertraline increased [...] appt for pap in June 2020-[facility] Production Clerk-reports pap negative-recordsrequested Z01.89-V72.85 Encounter for screening for [...]
--- OUTSIDE RECORDS SUMMARY | 2023-12-07 02:16 | XMS_ITS | CCD ---
Author Name Leena Culver NP Address [id number] [place] [address] [place] [id number] Phone Organization [employer] [facility] Phone Care Team Providers Care Head Tennis Coach Name Role Phone Anna Culver NP Primary Care Provider Unav ailable Unavailable Chronic Care Management Unavaila ble Summary Purpose DataExchange Insurance Providers Payer name Policy type / Coverage type Covered libertarian ID Effective Begin Date Effective End Date SUKI MAYO [id number] Unknown Unknown Family history Mother Diagnosis Age [...] 05/31/2018 Education level Unknown Some High School 10th05/31/20187576CihcewoijdNouuqjxGafyikbcxa88/29/2018Tobacco historySNOMED CT: 954996690Vhd never smoked or chewed xhzmifk1905/31/2018Alcohol historySNOMED CT: 225765817Letcq drinks vrmqxym2905/31/2018Has the patient ever used illegal drugs? UnknownHas never used illegal drugs05/31/2018DNR Order/ Advanced Directive UnknownFull Code05/31/2018 Allergies, Adverse Reactions, Alerts Substance Reaction Codes Entered Date Inactivated Date Status OxyContin itch, RxNorm: 889506 01/13/2021 No Inactive Da te Active *No known food allergies Wsdqeax4809/06/2018No Inactive DateActiveMethylprednisolonehivesRxNorm: 6902 09/06/2018No Inactive DateActive Problems Condition Codes Effective Dates Condition St atus Adjustment disorder with mixed anxiety a nd depressed mood ICD-10: F43.23 ICD-9: 309.2812ActiveEncounter for screening for tobacco useICD-10: Z01.89 ICD-9: V72.8503ActiveHypertensive heart disease with heart failureICD- 10: I11.0 ICD-9: 402.9107/ActiveType 2 diabetes mellitus with peripheral neuropathy ICD-10: E11.42 ICD-9: 250.6002/ActiveElevated liver enzymesICD-10: R74.8 ICD-9: 790.504/ctiveHyperlipidemia, unspecifiedICD-10: E78.5 [...] examinationICD-10: Z01.810 ICD-9: V72.8106/InactiveHeadacheICD-10: R51 ICD-9: 784.001/10/2018InactiveOther adjunct faculty 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 (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ICD-10: Z79.899 ICD-9: V58.6907/InactiveType 2 [...] ICD-9: 309.8112ActiveAbnormal electrocardiogram [ECG] [EKG]ICD-10: R94.31 ICD-9: 794.3108/ActiveEdema, unspecifiedICD-10: R60.9 ICD-9: 782.310ActiveLong term (current) use of non-steroidal anti- inflammatories (NSAID)ICD-10: Z79.1 ICD-9: V58.64006/13/2018Active Medications Medication Codes Instructions Start Date Stop Date Status Fill Instructions sertraline 100 mg tablet RxNorm: 588308 2 Tablet(s) Oral every day 03/13/20 21 2020 Inactive levothyroxine 50 mcg tablet RxNorm: 127183 TAKE (1) TABLET BY MOUTH DAILY 02/04/20 21 2020 Inactive metformin 500 mg tablet RxNorm: 832891 1 Tablet(s) Oral two times a day take with 500mg to equal 1000mg 01/14/20 21 2020 Inactive gabapentin 300 mg capsule RxNorm: 320298 TAKE 1 CAPSULE BY MOUTH THREE TIMES A DAY 01/14/20 21 2020 Inactive lisinopril 2.5 mg tablet RxNorm: 718571 TAKE 1 TABLET BY MOUTH DAILY 01/06/20 21 2020 Inactive gabapentin 300 mg capsule RxNorm: 102336 TAKE 1 CAPSULE BY MOUTH THREE TIMES A DAY 01/06/20 21 2020 Inactive Singulair 10 mg tablet RxNorm: 704779 TAKE (1) TABLET BY MOUTH DAILY 01/06/20 21 2020 Inactive metformin 1,000 mg tablet RxNorm: 363471 1 Tablet(s) Oral two times a day 01/06/20 21 2020 Inactive atorvastatin 40 mg tablet RxNorm: 396761 1 Tablet(s) Oral every day 12/06/19 21 2020 Inactive omeprazole 20 mg capsule,delayed release RxNorm: 082854 1 Capsule(s) Oral every evening 11/24/19 21 2020 Inactive famotidine 10 mg tablet RxNorm: 383423 1 Tablet(s) Oral every morning 11/24/19 21 2020 Inactive Alcohol Prep Pads RxNorm: 760471 USE EACH MORNING 10/14/19 21 2020 Inactive omeprazole 20 mg capsule,delayed release RxNorm: 341082 1 Capsule(s) Oral two times a day 10/13/19 21 2021 Inactive omeprazole 20 mg capsule,delayed release RxNorm: 369969 TAKE 1 CAPSULE BY MOUTH EVERY DAY 10/08/192021 Inactive Macrobid 100 mg capsule RxNorm: 085371 1 Capsule(s) Oral every 12 hours with food 10/01/202020 Inactive omeprazole 20 mg capsule,delayed release RxNorm: 551686 1 Capsule(s) Oral two times a day 09/24/202021 Inactive metformin 1,000 mg tablet RxNorm: 252250 1 Tablet(s) Oral two times a day 08/19/20 20 2020 Inactive start on September 11, 2020 metformin 500 mg tablet RxNorm: 381297 1 Tablet(s) Oral two times a day take with 500mg to equal 1000mg 08/19/20 20 2019 Inactive gabapentin 300 mg capsule RxNorm: 178516 TAKE 1 CAPSULE BY MOUTH THREE TIMES DAILY 07/11/20 20 2020 Inactive cetirizine 10 mg tablet RxNorm: 5131820 TAKE (1) TABLET BY MOUTH DAILY 07/11/20 20 2020 Inactive metformin 500 mg tablet RxNorm: 846855 1 Tablet(s) Oral two times a day 07/08/20 20 2019 Inactive loperamide 2 mg tablet RxNorm: 746019 1 Tablet(s) Oral as needed take one tablet after each loose stool, maximum of 8 tablets in 24 hours 06/24/202021 Inactive Sudafed 12 Hour 120 mg tablet,extended release RxNorm: 8890488 TAKE 1 TABLET BY MOUTH EVERY 12 HOURS NEEDED 06/11/20 20 2019 Inactive hydrochlorothiazide 25 mg tablet RxNorm: 578897 TAKE (1) TABLET BY MOUTH EVERY DAY 06/11/20 20 2019 Inactive omeprazole 20 mg capsule,delayed release RxNorm: 142769 TAKE 1 CAPSULE BY MOUTH EVERY DAY 05/14/20 20 2020 Inactive metformin 500 mg tablet RxNorm: 012070 1 Tablet(s) Oral every day 05/12/20 20 2019 Inactive True Metrix Glucose Test Strip RxNorm: 1 Test Strips Miscellaneous two times a day as needed 04/17/20 No Stop Date Active metformin 500 mg tablet RxNorm: 952792 1 Tablet(s) Oral every day 04/17/20 20 2019 Inactive diclofenac sodium 75 mg tablet,delayed release RxNorm: 318898 1 Tablet(s) PO BID 04/14/20 20 2021 Inactive This refill negates all other refills of this medication Sudafed 12 Hour 120 mg tablet,extended release RxNorm: 9583652 TAKE 1 TABLET BY MOUTH EVERY 12 HOURS NEEDED 03/14/20 20 2019 Inactive True Metrix Glucose Test Strip RxNorm: 1 Test Strips Miscellaneous every morning 03/13/20 20 2019 Inactive 100/container True Metrix Glucose Test Strip RxNorm: 1 Test Strips Miscellaneous QAM 02/22/20 20 2019 Inactive 100/container loperamide 2 mg tablet RxNorm: 304720 1 Tablet(s) Oral as needed take one tablet after each loose stool, maximum of 8 tablets in 24 hours 02/22/20 20 2019 Inactive cetirizine 10 mg tablet RxNorm: 0282614 1 Tablet(s) PO daily 01/17/20 20 2019 Inactive loperamide 2 mg tablet RxNorm: 360088 1 Tablet(s) Oral as needed take one tablet after each loose stool, maximum of 8 tablets in 24 hours 01/17/20 20 2019 Inactive quetiapine 100 mg tablet RxNorm: 750739 1 Tablet(s) Oral every night at bedtime 01/17/20 20 2019 Inactive levothyroxine 50 mcg tablet RxNorm: 960089 1 Tablet(s) PO daily 01/17/20 20 2020 Inactive gabapentin 300 mg capsule RxNorm: 228305 1 Capsule(s) PO TID 01/17/20 20 2019 Inactive levothyroxine 50 mcg tablet RxNorm: 529682 1 Tablet(s) PO daily 01/15/20 20 2019 Inactive lisinopril 2.5 mg tablet RxNorm: 598272 1 Tablet(s) PO daily 01/15/20 20 2020 Inactive gabapentin 300 mg capsule RxNorm: 920469 1 Capsule(s) PO TID 01/15/20 20 2019 Inactive cetirizine 10 mg tablet RxNorm: 9406085 1 Tablet(s) PO daily 01/15/20 20 2019 Inactive Singulair 10 mg tablet RxNorm: 153380 1 Tablet(s) PO daily 01/15/20 20 2020 Inactive gentamicin 0.3 % eye drops RxNorm: 832736 1 Drop(s) ophthalmic (eye) four times a day 12/29/19 20 2019 Inactive gentamicin 0.3 % eye drops RxNorm: 248470 1 Drop(s) ophthalmic (eye) four times a day 12/29/19 20 2019 Inactive gentamicin 0.3 % eye drops RxNorm: 059882 1 Drop(s) ophthalmic (eye) four times a day 12/29/19 20 2019 Inactive hydrochlorothiazide 25 mg tablet RxNorm: 588672 1 Tablet(s) Oral every day 12/21/19 20 2019 Inactive Sudafed 12 Hour 120 mg tablet,extended release RxNorm: 3206946 TAKE (1) TABLET BY MOUTH EVERY 12 HOURS NEEDED 12/21/19 20 2019 Inactive loperamide 2 mg tablet RxNorm: 500764 1 Tablet(s) Oral as needed take one tablet after each loose stool, maximum of 8 tablets in 24 hours 12/11/19 20 2019 Inactive loperamide 2 mg tablet RxNorm: 135728 1 Tablet(s) Oral as needed take one tablet after each loose stool, maximum of 8 tablets in 24 hours 12/11/19 20 2019 Inactive atorvastatin 40 mg tablet RxNorm: 350947 1 Tablet(s) Oral every day 11/29/19 20 2020 Inactive quetiapine 100 mg tablet RxNorm: 487494 1 Tablet(s) Oral every night at bedtime 11/28/19 20 2019 Inactive sertraline 100 mg tablet RxNorm: 375034 1 Tablet(s) Oral 11/28/19 20 2019 Inactive omeprazole 20 mg capsule,delayed release RxNorm: 063589 1 Capsule(s) Oral every day 11/20/19 20 2019 Inactive amoxicillin 250 mg capsule RxNorm: 645018 1 Capsule(s) Oral three times a day 11/07/19 20 2019 Inactive multivitamin with iron-mineral tablet RxNorm: 1 Tablet(s) Oral every day 10/29/19 20 2021 Inactive cetirizine 10 mg tablet RxNorm: 7270108 1 Tablet(s) PO daily 10/20/19 20 2019 Inactive This refill negates all other refills of this medication. Please do not auto refill Singulair 10 mg tablet RxNorm: 926714 1 Tablet(s) PO daily 10/20/19 20 2019 Inactive This refill negates all other refills of this medication gabapentin 300 mg capsule RxNorm: 673004 1 Capsule(s) PO TID 10/20/192019 Inactive lisinopril 2.5 mg tablet RxNorm: 856124 1 Tablet(s) PO daily 10/20/19 20 2019 Inactive levothyroxine 50 mcg tablet RxNorm: 264928 1 Tablet(s) PO daily 10/20/19 20 2019 Inactive This refill negates all other refills of this medication fenugreek seed extract 500 mg capsule RxNorm: 1 Capsule(s) Oral three times a day 10/17/19 20 2021 Inactive hydrochlorothiazide 25 mg tablet RxNorm: 264130 1 Tablet(s) Oral every day 10/17/19 20 2019 Inactive Alcohol Prep Pads RxNorm: 035108 1 Patch TOP QAM 10/16/192020 Inactive loperamide 2 mg tablet RxNorm: 544490 1 Tablet(s) Oral as needed take one [...] 2019 Inactive hydrochlorothiazide 25 mg tablet RxNorm: 161415 1 Tablet(s) Oral every day 09/19/20 19 2019 Inactive Sudafed 12 Hour 120 mg tablet,extended release RxNorm: 8666804 1 Tablet(s) Oral every 12 hours as needed 09/11/20 19 2018 Inactive omeprazole 20 mg capsule,delayed release RxNorm: 969967 1 Capsule(s) Oral every day 09/07/20 19 2019 Inactive Sudafed 12 Hour 120 mg tablet,extended release RxNorm: 5366187 1 Tablet(s) Oral every 12 hours as needed 09/04/20 19 2018 Inactive pantoprazole 40 mg tablet,delayed release RxNorm: 675793 1 Tablet(s) Oral every day 08/24/20 19 2018 Inactive discontinue any other H2Blkr. and PPI albuterol sulfate 2.5 mg/3 mL (0.083 %) solution for nebulization RxNorm: 802766 1 Vial Inhalation every four hours as needed as needed for dyspnea 08/17/20 19 2019 Inactive 60/box. This refill negates all other refills of this medication. Please do not fill early. Please do not auto refill. Symbicort 160 mcg-4.5 mcg/actuation HFA aerosol inhaler RxNorm: 2179483 2 Puff(s) INH BID 08/17/20 19 No Stop Date Active Alcohol Prep Pads RxNorm: 598288 1 Patch TOP QAM 08/17/20 19 2019 Inactive Ventolin HFA 90 mcg/actuation aerosol inhaler RxNorm: 398047 2 Puff(s) INH QID 08/09/20 19 2019 Inactive Please do not fill early. Please do not auto refill. This refill negates all other refills of this medication True Metrix Glucose Test Strip RxNorm: 1 Test Strips Miscellaneous QAM 08/09/20 19 2019 Inactive 100/container atorvastatin 40 mg tablet RxNorm: 738074 1 Tablet(s) Oral every day 07/04/20 19 2019 Inactive levmetamfetamine 50 mg nasal inhaler RxNorm: 1 Unit(s) NASAL Q3-4H Do not use more than every 3 hours or 8 times/24hours 06/26/20 19 2021 Inactive Please do not auto refill. This refill negates all other refills of this medication buspirone 7.5 mg tablet RxNorm: 740257 1 Tablet(s) PO BID 06/26/20 19 2020 Inactive This refill negates all other refills of this medication hydrochlorothiazide 12.5 mg tablet RxNorm: 943981 1 Tablet(s) PO QAM 06/26/20 19 2019 Inactive Ventolin HFA 90 mcg/actuation aerosol inhaler RxNorm: 539249 2 Puff(s) INH QID 06/26/20 19 2018 Inactive Please do not fill early. Please do not auto refill. This refill negates all other refills of this medication Singulair 10 mg tablet RxNorm: 457005 1 Tablet(s) PO daily 06/26/20 19 2019 Inactive This refill negates all other refills of this medication cetirizine 10 mg tablet RxNorm: 7769194 1 Tablet(s) PO daily 06/26/20 19 2019 Inactive This refill negates all other refills of this medication. Please do not auto refill levothyroxine 50 mcg tablet RxNorm: 192276 1 Tablet(s) PO daily 06/26/20 19 2019 Inactive This refill negates all other refills of this medication diclofenac sodium 75 mg tablet,delayed release RxNorm: 583382 1 Tablet(s) PO BID 06/26/20 19 2019 Inactive This refill negates all other refills of this medication ranitidine 150 mg tablet RxNorm: 056669 1 Tablet(s) PO BID 06/26/20 19 2018 Inactive This refill negates all other refills of this medication Calcium 600-D3 Plus (mag-zinc) 600 mg calcium-800 unit-50 mg tablet RxNorm: 1 Tablet(s) PO daily take an additonal tablet for itching. 06/26/20 19 2018 Inactive This refill negates all other refills of this medication albuterol sulfate 2.5 mg/3 mL (0.083 %) solution for nebulization RxNorm: 111220 1 Vial INH QID 06/26/20 19 2018 Inactive 60/box. This refill negates all other refills of this medication. Please do not fill early. Please do not auto refill. lisinopril 2.5 mg tablet RxNorm: 666361 1 Tablet(s) PO daily 06/21/20 19 2019 Inactive gabapentin 300 mg capsule RxNorm: 435424 1 Capsule(s) PO TID 06/21/20 19 2019 Inactive atorvastatin 20 mg tablet RxNorm: 443772 1 Tablet(s) PO QHS 06/07/20 19 2018 Inactive This refill negates all other refills of this medication TRUEplus Lancets 30 gauge RxNorm: 1 Lancets Miscellaneous QAM 05/29/20 19 2018 Inactive 100/box gabapentin 300 mg capsule RxNorm: 706520 1 Capsule(s) PO TID 05/03/20 19 2018 Inactive Flnickolas Complete (iron) 18 mg iron chewable tablet RxNorm: 1 Tablet(s) PO daily 04/04/20 19 2021 Inactive This refill negates all other refills of this medication gabapentin 300 mg capsule RxNorm: 024491 1 Capsule(s) PO TID as needed 02/01/20 19 2018 Inactive True Metrix Glucose Test Strip RxNorm: 1 Test Strips Miscellaneous QAM 02/01/20 19 2018 Inactive 100/container Alcohol Prep Pads RxNorm: 368826 1 Patch TOP QAM 02/01/20 19 2018 Inactive TRUEplus Lancets 30 gauge RxNorm: 1 Lancets Miscellaneous QAM 02/01/20 19 2018 Inactive 100/box lisinopril 2.5 mg tablet RxNorm: 258853 1 Tablet(s) PO daily 12/28/192018 Inactive ranitidine 150 mg tablet RxNorm: 423662 1 Tablet(s) PO BID 10/21/192018 Inactive This refill negates all other refills of this medication albuterol sulfate 2.5 mg/3 mL (0.083 %) solution for nebulization RxNorm: 345007 1 Vial INH QID 10/21/192018 Inactive 60/box. [...] this medication gabapentin 300 mg capsule RxNorm: 476607 1 Capsule(s) PO TID as needed 10/21/192018 Inactive atorvastatin 20 mg tablet RxNorm: 892274 1 Tablet(s) PO QHS 10/21/192018 Inactive This refill negates all other refills of this medication trazodone 50 mg tablet RxNorm: 896406 1 Tablet(s) PO QHS 10/21/192018 Inactive This refill negates all other refills of this medication Ventolin HFA 90 mcg/actuation aerosol inhaler RxNorm: 635460 2 Puff(s) INH QID 10/21/192018 Inactive Please do not fill early. Please do not auto refill. This refill negates all other refills of this medication Calcium 600-D3 Plus 600 mg calcium-800 unit-50 mg tablet RxNorm: 1 Tablet(s) PO daily take an additonal tablet for itching. 10/21/192018 Inactive This refill negates all other refills of this medication Singulair 10 mg tablet RxNorm: 133898 1 Tablet(s) PO daily 10/21/192018 Inactive This refill negates all other refills of this medication buspirone 7.5 mg tablet RxNorm: 702459 1 Tablet(s) PO BID 10/21/19 19 2018 Inactive This refill negates all other refills of this medication diclofenac sodium 75 mg tablet,delayed release RxNorm: 939757 1 Tablet(s) PO BID 10/21/19 19 2018 Inactive This refill negates all other refills of this medication hydrochlorothiazide 12.5 mg tablet RxNorm: 915466 1 Tablet(s) PO QAM 10/21/192018 Inactive metoprolol succinate ER 50 mg tablet,extended release 24 hr RxNorm: 992678 1 Tablet(s) PO daily 10/21/19 19 2018 Inactive This refill negates all other refills of this medication levothyroxine 50 mcg tablet RxNorm: 336655 1 Tablet(s) PO daily 10/21/192018 Inactive This refill negates all other refills of this medication cetirizine 10 mg tablet RxNorm: 8935319 1 Tablet(s) PO daily 10/21/192018 Inactive This refill negates all other refills of this medication. Please do not auto refill Flintstones Complete (iron) 18 mg iron chewable tablet RxNorm: 1 Tablet(s) PO daily 10/21/192018 Inactive This refill negates all other refills of this medication buspirone 7.5 mg tablet RxNorm: 824837 1 Tablet(s) PO BID 10/12/192018 Inactive cetirizine 10 mg tablet RxNorm: 1988686 1 Tablet(s) PO daily 09/28/202018 Inactive Guaiasorb DM 10 mg-100 mg/5 mL oral liquid RxNorm: 001733 10 Milliliter(s) PO As needed every 4 hr 09/24/202018 Inactive Vicks Vaporub 4.7 %-1.2 %-2.6 % topical ointment RxNorm: 6495030 1 Application TOP TID 09/24/20 18 2018 Inactive levmetamfetamine 50 mg nasal inhaler RxNorm: 1 Unit(s) NASAL Q3-4H 09/24/20 18 2017 Inactive sertraline 50 mg tablet RxNorm: 169886 1 Tablet(s) PO daily 09/09/20 18 2018 Inactive Please note dose trazodone 50 mg tablet RxNorm: 448752 1 Tablet(s) PO QHS 09/06/20 18 2018 Inactive sertraline 50 mg tablet RxNorm: 853219 1 Tablet(s) PO daily 09/06/20 18 2017 Inactive amoxicillin 500 mg tablet RxNorm: 247802 1 Tablet(s) PO Q12H 08/31/20 18 2017 Inactive albuterol sulfate 2.5 mg/3 mL (0.083 %) solution for nebulization RxNorm: 072997 1 Vial INH QID 08/10/20 18 2018 Inactive 60/box. Please do not fill early. Please do not auto refill. Prozac 10 mg capsule RxNorm: 690360 1 Capsule(s) PO daily 08/09/20 18 2017 Inactive buspirone 7.5 mg tablet RxNorm: 395526 1 Tablet(s) PO BID 08/09/20 18 2018 Inactive gabapentin 300 mg capsule RxNorm: 575803 1 Capsule(s) PO TID as needed 08/01/20 18 2018 Inactive hydrochlorothiazide 12.5 mg tablet RxNorm: 755406 1 Tablet(s) PO QAM 08/01/20 18 2018 Inactive ranitidine 150 mg tablet RxNorm: 772151 1 Tablet(s) PO BID 08/01/20 18 2018 Inactive Macrobid 100 mg capsule RxNorm: 472248 1 Capsule(s) PO Q12H 06/21/20 18 2017 Inactive Singulair 10 mg tablet RxNorm: 885903 1 Tablet(s) PO daily 06/14/20 18 2018 Inactive Ventolin HFA 90 mcg/actuation aerosol inhaler RxNorm: 5221870 2 Puff(s) INH QID 06/14/20 18 2018 Inactive Singulair 10 mg tablet RxNorm: 106081 1 Tablet(s) PO daily 06/14/20 18 2017 Inactive buspirone 7.5 mg tablet RxNorm: 133987 1 Tablet(s) PO BID 06/14/20 18 2017 Inactive Prozac 10 mg capsule RxNorm: 733862 1 Capsule(s) PO daily 06/14/20 18 2017 Inactive Neilmed Pediatric Sinus Rinse Refill packet RxNorm: 1 Unit Dose NASAL PRN 05/31/20 18 2021 Inactive diclofenac sodium 75 mg tablet,delayed release RxNorm: 848344 1 Tablet(s) PO BID 05/31/20 18 2017 Inactive lisinopril 2.5 mg tablet RxNorm: 251955 1 Tablet(s) PO daily 05/31/20 18 2017 Inactive metoprolol succinate ER 50 mg tablet,extended release 24 hr RxNorm: 630410 1 Tablet(s) PO daily 05/31/20 18 2017 Inactive levothyroxine 50 mcg tablet RxNorm: 826357 1 Tablet(s) PO daily 05/31/20 18 2017 Inactive TRUEplus Lancets 30 gauge RxNorm: 1 Lancets Miscellaneous QAM 05/31/20 18 2017 Inactive 100/box Ventolin HFA 90 mcg/actuation aerosol inhaler RxNorm: 522717 2 Puff(s) INH QID 05/31/20 18 2017 Inactive Aleve 220 mg capsule RxNorm: 5537945 1 Capsule(s) PO BID 05/31/20 18 2018 Inactive ranitidine 150 mg tablet RxNorm: 838003 1 Tablet(s) PO BID 05/31/20 18 2017 Inactive gabapentin 300 mg capsule RxNorm: 848268 1 Capsule(s) PO TID as needed 05/31/20 18 2017 Inactive atorvastatin 20 mg tablet RxNorm: 475164 1 Tablet(s) PO QHS 05/31/20 18 2017 Inactive True Metrix Glucose Test Strip RxNorm: 1 Test Strips Miscellaneous QAM 05/31/20 18 2017 Inactive 50/container Calcium 600-D3 Plus 600 mg calcium-800 unit-50 mg tablet RxNorm: 1 Tablet(s) PO daily take an additonal tablet for itching. 05/31/20 18 2017 Inactive hydrochlorothiazide 12.5 mg tablet RxNorm: 027643 1 Tablet(s) PO QAM 05/31/20 18 2017 Inactive Flmichaeles Complete (iron) 18 mg iron chewable tablet RxNorm: 1 Tablet(s) PO daily 05/31/20 18 2017 Inactive d-mannose oral powder RxNorm: PO 18 2021 Inactive True Metrix Glucose Meter RxNorm: miscellaneous 08/17/20 19 2018 Inactive sertraline 50 mg tablet RxNorm: 027706 1 Tablet(s) PO daily 11/28/19 20 2019 Inactive loperamide 2 mg tablet RxNorm: 881523 oral 09/29/20 19 2018 Inactive Symbicort 160 mcg-4.5 mcg/actuation HFA aerosol inhaler RxNorm: 8925708 2 Puff(s) INH BID 08/17/20 19 2018 Inactive Medication Administered No Medication Administered data Procedures Procedure Codes Date Tobacco Assessment/Screening CPT-4: TCA 08/2021 Patient Health Questionnaire CPT-4: DPHQ 08/2021 Patient Health Questionnaire Little interest or pleasure in doing things?/0 = Not at all, Feeling down, depressed or hopeless?/2= More than half the days, Trouble falling or staying asleep, or sleeping too much?/0 = Not at all,Feeling tired or having little energy?/0 = Not at all, Poor appetite or overeating?/2 = More than half the days, Feeling bad about yourself or that you're a failure or that you have let yourself or family down?/0 = Not at all, Trouble concentrating on things, such as reading a newspaper or watchingtelevision?/0 = Not at all, Moving or speaking so slowly that other people noticed? Or the opposite?/0 = Not at all, Thoughts that you would be better off , or of hurting yourself in some way?/0 = Not at all, Score:/0-4 = Negative for depression- NO PLAN NEEDEDCPT-4: DPHQUnknown 03/13/2021Tobacco Assessment/Screening Tobacco Use/Never used tobaccoCPT-4: TJNYhhvcel41/11/2021Mini Mental State Exam CPT-4: DMMA01/29/2021nnual Wellness Visit (Subsequent Visit)CPT-4: G0439 01/13/2021dvanced Care PlanningCPT-4: VACP01/13/2021Fall Risk AssessmentSNOMED CT: 863316003 CPT-4: DFRA01/13/2021emmes Fany AssessmentCPT-4: DSWA12/17/2020Urinalysis, dip stickCPT-4: 533644809/24/2020Patient Health QuestionnaireCPT-4: DPHQ 08/19/2020ElectrocardiogramCPT-4: 1593405Tobacco Assessment/Screening CPT-4: TCA01/01/2020Fall Risk AssessmentSNOMED CT: 729454651 CPT-4: DFRA01/01/2020Functional AssessmentCPT-4: DFA01/01/2020[place] Fany AssessmentCPT-4: DSWA11/28/2019Patient Health QuestionnaireCPT-4: DPHQ11/28/2019 [place] Fany AssessmentCPT-4: DSWA10/17/2019HypertensionCPT-4: HTN10/17/[address]: 754[address]9088 CPT-4: DFRA09/19/2019Functional AssessmentCPT-4: DFA111/20/2018Urinalysis, dip stickCPT-4: 3684986Tobacco Assessment/ScreeningCPT-4: TCA05/24/2019 Patient Health QuestionnaireCPT-4: DPHQ05/24/2019AHA/REBECCA Classification AssessmentCPT-4: DAHA04/25/2019Controlled Substance ReportCPT-4: CTRSU04/25/2019 Urinalysis, dip stickCPT-4: 889259903/28/2019Urinalysis, dip stickCPT-4: 39637 03/28/20191282Y1K-DicahwptoxalwncKLO-1: 79714KvuzlcmS9B-EgubgammfbinwhcZQX-8: 80194 ImjgfhnE8H-UwyjtgwrqghojizJBG-6: 26042FpattroH4H-NokjdrvgfouepfpFLV-8: 19232 VfamqldX7U-OglfvvrmtbbpmsbRVR-3: 17621QuhmubkD4W-MonqygpmkmdwllxBLW-6: 63035 FbezbjlV4I-YvjjetfpglkxfvfVNL-1: 54702JtyeqltAqlaqzxtwg [facility]: 011673558 CPT-4: D48Nenruio Reason For Visit Reason For Visit Effective Dates Notes diabetes mellitus 03/13/2021 hyperlipidemia disease 03/13/2021 Interim health update 03/13/2021 Encounters Encounter Performer Location Location Address Codes Magdi e ([id number]) (EST PT) DETAILED TE [facility] VISIT Diagnosis: Type 2 diabetes mellitus with peripheral neuropathy[ICD10: E11.42] Diagnosis: Hypertensive heart disease with heart failure[ICD10: I11.0] Diagnosis: Adjustment disorder with mixed anxiety and depressed mood[ICD10: F43.23] Diagnosis: Encounter for screening for tobacco use[ICD10: Z01.89]Anna Bourgeois [address] [place], [place] [id number] CPT-4: 2643760/08/2021 Plan of Care Planned Activity Notes Codes Status Date Visit Plan: Video and audio call using [employer] [id number] Anorexia symptoms improving, but persist in the morning encouraged to keep food diary for a couple weeks, will review at next visit advised to continue to try small, more frequent food intake, discussed limiting carbonated beverages as this may make her feel full taking away appetite discussed benefits of [employer] [employer]. note weight has remained stable [...] anxiety and depressed mood routine follow up [facility] [place] 03/13/2021 PHQ 9 Score 4 Sertraline increased [...] new appt for pap in June 2020-[employer]-reports pap negative-records requested Z01.89- V72.85 Encounter for screening for tobacco use 03/13/2021 Tobacco screen complete-patient denies ever smoking Z12.31-V76.12 (Z12.31-V76.12) Encounter for screening mammogram for malignant neoplasm of breast Z12.11-V76.51 (Z12.11- V76.51) Encounter for screening for malignant neoplasm of colon Preventative testing not indicated due to age *Ireviewed the most recent CDC guidelines regarding Covid-19/Coronavirus with the patient/caregiver/designee 1Patient Education: Patient Medication JniholmYjmwwwtnc87/11/2021 Patient Education: AkijlwjcDahrsyakh29/11/2021ppointment: Anna Culver WPtel: [address] [place] [address] [id number]: Chivo Bishop WPtel: [address] [place] [address] [id number]: Anna Culver WPtel: [id number] [place] [address] USETV01/13/2021ppointment: Anna Culver WPtel: [id number] [place] [address] [id number]: Chivo Bishop WPtel: [id number] [place] [address] USETV11/28/2020ppointment: Anna Culver WPtel: [id number] [place] [address] USETV11/24/2020ppointment: Anna Culver WPtel: [address] [place] [address] [id number]: Anna Culver WPtel: [address] [place] [address] [id number]: Anna Culver WPtel: [address] [place] [address] USETV110/26/2019Appointment: Anna Culver WPtel: [address] [place] [address] USETV110/19/2019Appointment: Anna Culver WPtel: [address] [place] [address] USETV1Appointment: Anna Culver WPtel: [id number] [place] [address] [id number]: Gianna Birmingham: [address] [facility] [address] [id number] YSLQOQ3907/02/2020Appointment: Anna Culver WPtel: [phone] [place] [address] AGE94874/06/2020Appointment: Anna Culver WPtel: [address] [place] [address] [id number]: Anna Culver WPtel: [id number] [place] [address] [id number]: Anna Culver WPtel: [address] [place] [address] [id number]: Anna Culver WPtel: [address] [place] [address] [id number]: Anna Culver WPtel: [address] [place] [address] [id number]: Anna Culver WPtel: [address] [place] [address] [id number]: Anna Culver WPtel: [address] [place] [address] [id number]: Anna Culver WPtel: [address] [place] [address] [id number]: Anna Culver WPtel: [address] [place] [address] [id number]/20/2018Appointment: Sudha Hernadez WPtel: [address] [facility] [id number]: Sudha Hernadez WPtel: [address] [facility] [id number]: Charlene Oropeza WPtel: [address] [facility] [address] [id number]: Danny, FoqolyO15520/26/2019Appointment: Charlene Oropeza WPtel: [address] [facility] [id number]: Hema Palafoxothy WPtel: [address] [facility] [id number]: Javy Rasta WPtel: [address] [facility] [id number]: Javy Rasta WPtel: [address] [facility] [id number]: Hema Palafoxothy WPtel: [address] [facility] [id number]: Pending Gynecology Referral InformationReferral ProcessedReferral: Pending Pulmonology Referral InformationReferralProcessed Referral: Pending Psychiatry Referral InformationReferralInitiatedReferral: Pending Respiratory Services Referral InformationReferralInitiatedReferral: Pending Ophthalmology Referral InformationReferralInitiatedReferral: [facility] WPtel: [address] [place], [place] [id number] USWriter placed a call out to the patient to notify her that it has been recommended that she be seenby a urologist. Patient agreed to be seen, does not have a provider of choice and no transportationissues. Workers Compensation Paralegal faxed referral and clinical notes to [facility] in [place], [place] near the patient's home. Patient to [...] seen and prefers a provider in the [place] or [place] area. Workers Compensation Paralegal placed a call out to everyone listed in the area and the only location that was able to accept the patient's insurance was [facility] [address] [place] [address] and spoke with Maylin. Maylin asked that the patient's referral, face sheet and visit notes be faxed to . Workers Compensation Paralegal faxed over requested documents. Patient appointment confirmation letter generated and mailed to her home address. Patient to call to schedule an appointment.ProcessedReferral: [facility] WPtel: [address] [place], [place] [id number] USPatient notified that it has been advised that she be seen by Neurology. Patient agreed to be seen and prefers to be seen by a provider in the [place], [place] area. Patient denies any concerns with transportation, and prefers to schedule her own appointment. Workers Compensation Paralegal placed a call out to [facility] and spoke with Neeraj [...] patient . Video and audio call using Virdia E26.0-089.0 Anorexia symptoms improving, but persist in the morning encouraged to keep food diary for a couple weeks, will review at next visit advised to continue to try small, more frequent food intake, discussed limiting carbonated beverages as this may make her feel full taking away appetite discussed benefits of [place] [employer]. note weight has remained stable [...] received new monitor [employer] through [employer]-participant of [place] [employer] - 01/29/2021 Hgb A1C 5.3 10/17/2019 [place] Fany 04/11-instructed on good daily foot care [...] anxiety and depressed mood routine follow up [facility] [place] 03/13/2021 PHQ 9 Score 4 Sertraline increased [...] new appt for pap in June 2020-[employer]-reports pap negative-recordsrequested Z01.89-V72.85 Encounter for screening for [...]
--- OUTSIDE RECORDS SUMMARY | 2023-12-07 02:17 | XMS_ITS | CCD ---
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 Design Cell Engineer Name Role Phone Palomo KING, Anna Primary Care Provider Unav ailable Unavailable Chronic Care Management Unavaila ble Summary Purpose DataExchange Insurance Providers Payer name Policy type / Coverage type Covered alliance party ID Effective Begin Date Effective End Date [employer] [facility] [id number] Unknown Unknown Family history Mother Diagnosis Age [...] 05/31/2018 Education level Unknown Some High School 10th05/31/20188937WndohoarnqGyvcxuhDqdhuvkcug58/29/2018Tobacco historySNOMED CT: 536385595Wlv never smoked or chewed uklewjk7005/31/2018Alcohol historySNOMED CT: 729596347Jkrkw drinks uxfnesw0505/31/2018Has the patient ever used illegal drugs? UnknownHas never used illegal drugs05/31/2018DNR Order/ Advanced Directive UnknownFull Code05/31/2018 Allergies, Adverse Reactions, Alerts Substance Reaction Codes Entered Date Inactivated Date Status OxyContin itch, RxNorm: 859553 01/13/2021 No Inactive Da te Active *No known food allergies Kfrufbw6609/06/2018No Inactive DateActiveMethylprednisolonehivesRxNorm: 6902 09/06/2018No Inactive DateActive Problems Condition Codes Effective Dates Condition St atus Adjustment disorder with mixed anxiety a nd depressed mood ICD-10: F43.23 ICD-9: 309.28111/06/2017ActiveCOVID-19 virus RNA test result positive at limit of detectionICD-10: U07.1 ICD-9: 079.8909/1ActiveGERD (gastroesophageal reflux disease)ICD-10: K21.9 ICD-9: 530.8112/03/2019ActiveType 2 diabetes mellitus with peripheral neuropathy ICD-10: E11.42 ICD-9: 250.6002/ActiveUpper respiratory infectionICD-10: J06.9 ICD-9: 465.908/ctiveChronic kidney disease, stage 2 (mild)ICD-10: N18.2 ICD-9: 585.201/ctiveFamily history of seizuresICD-10: Z84.89 ICD-9: V19.807/ctiveHypertensive heart disease with heart failureICD-10: I11.0 ICD-9: 402.9107/ActiveSyncope and collapseICD-10: R55 ICD-9: 780.ActiveAnorexiaICD-10: R63.0 ICD-9: 783.003/1ActivePost-traumatic stress disorder, unspecifiedICD-10: F43.10 ICD-9: 309.8112/01/2018ActiveBlisterICD-10: T14.8XXA ICD-9: 919.ctiveObstructive sleep apnea (adult) (pediatric)ICD-10: G47.33 ICD-9: 327.2309/ActiveEncounter [...] examinationICD-10: Z01.810 ICD-9: V72.8106/InactiveHeadacheICD-10: R51 ICD-9: 784.001InactiveOther medical terminologist (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ICD-10: Z79.899 ICD-9: V58.6907/InactiveType 2 diabetes mellitus without complications ICD-10: E11.9 ICD-9: 250.0001InactiveWheezingICD-10: R06.2 ICD-9: 786.0711InactiveAbnormal urine findingICD-10: R82.90 ICD-9: 791.912ResolvedAbrasion of toeICD-10: S90.416A ICD-9: 917.005ResolvedPink eyeICD-10: H10.029 ICD-9: 372.0303ResolvedRight wrist painICD-10: M25.531 ICD-9: 719.4308/09/2020ResolvedSinusitisICD-10: J32.9 ICD-9: 473.902ResolvedSuperficial burn of multiple sites of right hand, subsequent encounterICD-10: T23.191D ICD-9: V58.8902/1ResolvedUrinary tract infectionICD-10: N39.0 ICD-9: 599.012ResolvedPolyneuropathy, unspecifiedICD-10: G62.9 ICD-9: 356.908ActiveEncounter for screening, unspecifiedICD-10: Z13.9 ICD-9: V82.912Active(Z12.4-V76.2) Encounter for screening for malignant neoplasm of cervixICD-10: Z12.4 ICD-9: V76.207ActiveHypothyroidism, unspecifiedICD-10: E03.9 ICD-9: 244.9111/06/2017Active(Z12.11-V76.51) Encounter for screening for malignant neoplasm of colonICD-10: Z12.11 ICD-9: V76.5107/Active(Z12.31-V76.12) Encounter for screening mammogram for malignant neoplasm of breastICD-10: Z12.31 ICD-9: V76.1207ActiveAdult BMI 50.0-59.9 kg/sq mICD-10: Z68.43 ICD-9: V85.4308ActiveFecal incontinenceICD-10: R15.9 ICD-9: 787.6003ActiveMixed incontinenceICD-10: N39.46 ICD-9: 788.3308ActiveAsthmaICD-10: J45.909 ICD-9: 493.9008/08/2018ActivePatient Not SeenICD-10: UXZ.01 ICD-9: XZ0.107/ActiveDyspnea, unspecifiedICD-10: R06.00 ICD-9: 786.0905ActiveAbnormal electrocardiogram [ECG] [EKG]ICD-10: R94.31 ICD-9: 794.31005/30/2018ActiveEdema, unspecifiedICD-10: R60.9 ICD-9: 782.310ActiveLong term (current) use of non-steroidal anti- inflammatories (NSAID)ICD-10: Z79.1 ICD-9: V58.6409Active Medications Medication Codes Instructions Start Date Stop Date Status Fill Instructions hydrochlorothiazide 25 mg tablet RxNorm: 959164 Take 1 Tablet(s) Oral every day 06/12/20 21 2020 Inactive ondansetron 4 mg disintegrating tablet RxNorm: 564274 1 Tablet(s) Oral two times a day 06/10/20 21 2020 Inactive Sudafed 12 Hour 120 mg tablet,extended release RxNorm: 1999444 TAKE 1 TABLET BY MOUTH EVERY 12 HOURS NEEDED 06/01/20 21 2021 Inactive Heartburn Relief (famotidine) 10 mg tablet RxNorm: 912635 Take 1 Tablet(s) Oral every morning 05/07/20 21 2020 Inactive omeprazole 20 mg capsule,delayed release RxNorm: 083498 1 Capsule(s) Oral every evening 04/03/20 21 2020 Inactive sertraline 100 mg tablet RxNorm: 938637 2 Tablet(s) Oral every day 03/13/20 21 2020 Inactive levothyroxine 50 mcg tablet RxNorm: 291354 TAKE (1) TABLET BY MOUTH DAILY 02/04/20 21 2020 Inactive metformin 500 mg tablet RxNorm: 200392 1 Tablet(s) Oral two times a day take with 500mg to equal 1000mg 01/14/20 21 2020 Inactive gabapentin 300 mg capsule RxNorm: 341626 TAKE 1 CAPSULE BY MOUTH THREE TIMES A DAY 01/14/20 21 2020 Inactive lisinopril 2.5 mg tablet RxNorm: 825958 TAKE 1 TABLET BY MOUTH DAILY 01/06/20 21 2020 Inactive gabapentin 300 mg capsule RxNorm: 167478 TAKE 1 CAPSULE BY MOUTH THREE TIMES A DAY 01/06/20 21 2020 Inactive Singulair 10 mg tablet RxNorm: 013111 TAKE (1) TABLET BY MOUTH DAILY 01/06/20 21 2020 Inactive metformin 1,000 mg tablet RxNorm: 163487 1 Tablet(s) Oral two times a day 01/06/20 21 2020 Inactive atorvastatin 40 mg tablet RxNorm: 735877 1 Tablet(s) Oral every day 12/06/19 21 2020 Inactive omeprazole 20 mg capsule,delayed release RxNorm: 276064 1 Capsule(s) Oral every evening 11/24/19 21 2020 Inactive famotidine 10 mg tablet RxNorm: 908748 1 Tablet(s) Oral every morning 11/24/19 21 2020 Inactive Alcohol Prep Pads RxNorm: 149182 USE EACH MORNING 10/14/19 21 2020 Inactive omeprazole 20 mg capsule,delayed release RxNorm: 249667 1 Capsule(s) Oral two times a day 10/13/19 21 2021 Inactive omeprazole 20 mg capsule,delayed release RxNorm: 069735 TAKE 1 CAPSULE BY MOUTH EVERY DAY 10/08/19 21 2021 Inactive Macrobid 100 mg capsule RxNorm: 777571 1 Capsule(s) Oral every 12 hours with food 10/01/20 20 2020 Inactive omeprazole 20 mg capsule,delayed release RxNorm: 685854 1 Capsule(s) Oral two times a day 09/24/20 20 2021 Inactive metformin 1,000 mg tablet RxNorm: 241929 1 Tablet(s) Oral two times a day 08/19/20 20 2020 Inactive start on September 11, 2020 metformin 500 mg tablet RxNorm: 604829 1 Tablet(s) Oral two times a day take with 500mg to equal 1000mg 08/19/20 20 2019 Inactive gabapentin 300 mg capsule RxNorm: 447421 TAKE 1 CAPSULE BY MOUTH THREE TIMES DAILY 07/11/20 20 2020 Inactive cetirizine 10 mg tablet RxNorm: 7801239 TAKE (1) TABLET BY MOUTH DAILY 07/11/20 20 2020 Inactive metformin 500 mg tablet RxNorm: 448972 1 Tablet(s) Oral two times a day 07/08/20 20 2019 Inactive loperamide 2 mg tablet RxNorm: 160209 1 Tablet(s) Oral as needed take one tablet after each loose stool, maximum of 8 tablets in 24 hours 06/24/20 20 2021 Inactive Sudafed 12 Hour 120 mg tablet,extended release RxNorm: 7228807 TAKE 1 TABLET BY MOUTH EVERY 12 HOURS NEEDED 06/11/20 20 2019 Inactive hydrochlorothiazide 25 mg tablet RxNorm: 321663 TAKE (1) TABLET BY MOUTH EVERY DAY 06/11/20 20 2019 Inactive omeprazole 20 mg capsule,delayed release RxNorm: 382640 TAKE 1 CAPSULE BY MOUTH EVERY DAY 05/14/20 20 2020 Inactive metformin 500 mg tablet RxNorm: 783720 1 Tablet(s) Oral every day 05/12/20 20 2019 Inactive True Metrix Glucose Test Strip RxNorm: 1 Test Strips Miscellaneous two times a day as needed 04/17/20 No Stop Date Active metformin 500 mg tablet RxNorm: 290546 1 Tablet(s) Oral every day 04/17/20 20 2019 Inactive diclofenac sodium 75 mg tablet,delayed release RxNorm: 873568 1 Tablet(s) PO BID 04/14/20 20 2021 Inactive This refill negates all other refills of this medication Sudafed 12 Hour 120 mg tablet,extended release RxNorm: 1655371 TAKE 1 TABLET BY MOUTH EVERY 12 HOURS NEEDED 03/14/20 20 2019 Inactive True Metrix Glucose Test Strip RxNorm: 1 Test Strips Miscellaneous every morning 03/13/20 20 2019 Inactive 100/container True Metrix Glucose Test Strip RxNorm: 1 Test Strips Miscellaneous QA 02/22/20 20 2019 Inactive 100/container loperamide 2 mg tablet RxNorm: 401731 1 Tablet(s) Oral as needed take one tablet after each loose stool, maximum of 8 tablets in 24 hours 02/22/20 20 2019 Inactive cetirizine 10 mg tablet RxNorm: 9420569 1 Tablet(s) PO daily 01/17/20 20 2019 Inactive loperamide 2 mg tablet RxNorm: 003121 1 Tablet(s) Oral as needed take one tablet after each loose stool, maximum of 8 tablets in 24 hours 01/17/20 20 2019 Inactive quetiapine 100 mg tablet RxNorm: 987694 1 Tablet(s) Oral every night at bedtime 01/17/20 20 2019 Inactive levothyroxine 50 mcg tablet RxNorm: 928027 1 Tablet(s) PO daily 01/17/20 20 2020 Inactive gabapentin 300 mg capsule RxNorm: 988318 1 Capsule(s) PO TID 01/17/20 20 2019 Inactive levothyroxine 50 mcg tablet RxNorm: 582118 1 Tablet(s) PO daily 01/15/20 20 2019 Inactive lisinopril 2.5 mg tablet RxNorm: 754299 1 Tablet(s) PO daily 01/15/20 20 2020 Inactive gabapentin 300 mg capsule RxNorm: 621813 1 Capsule(s) PO TID 01/15/20 20 2019 Inactive cetirizine 10 mg tablet RxNorm: 9561878 1 Tablet(s) PO daily 01/15/20 20 2019 Inactive Singulair 10 mg tablet RxNorm: 819488 1 Tablet(s) PO daily 01/15/20 20 2020 Inactive gentamicin 0.3 % eye drops RxNorm: 955686 1 Drop(s) ophthalmic (eye) four times a day 12/29/19 20 2019 Inactive gentamicin 0.3 % eye drops RxNorm: 432861 1 Drop(s) ophthalmic (eye) four times a day 12/29/19 20 2019 Inactive gentamicin 0.3 % eye drops RxNorm: 121640 1 Drop(s) ophthalmic (eye) four times a day 12/29/19 20 2019 Inactive hydrochlorothiazide 25 mg tablet RxNorm: 997283 1 Tablet(s) Oral every day 12/21/19 20 2019 Inactive Sudafed 12 Hour 120 mg tablet,extended release RxNorm: 1702287 TAKE (1) TABLET BY MOUTH EVERY 12 HOURS NEEDED 12/21/19 20 2019 Inactive loperamide 2 mg tablet RxNorm: 084819 1 Tablet(s) Oral as needed take one tablet after each loose stool, maximum of 8 tablets in 24 hours 12/11/19 20 2019 Inactive loperamide 2 mg tablet RxNorm: 365366 1 Tablet(s) Oral as needed take one tablet after each loose stool, maximum of 8 tablets in 24 hours 12/11/19 20 2019 Inactive atorvastatin 40 mg tablet RxNorm: 229078 1 Tablet(s) Oral every day 11/29/19 20 2020 Inactive quetiapine 100 mg tablet RxNorm: 199952 1 Tablet(s) Oral every night at bedtime 11/28/19 20 2019 Inactive sertraline 100 mg tablet RxNorm: 062281 1 Tablet(s) Oral 11/28/19 20 2019 Inactive omeprazole 20 mg capsule,delayed release RxNorm: 139880 1 Capsule(s) Oral every day 11/20/19 20 2019 Inactive amoxicillin 250 mg capsule RxNorm: 650402 1 Capsule(s) Oral three times a day 11/07/19 20 2019 Inactive multivitamin with iron-mineral tablet RxNorm: 1 Tablet(s) Oral every day 10/29/19 20 2021 Inactive cetirizine 10 mg tablet RxNorm: 4614301 1 Tablet(s) PO daily 10/20/19 20 2019 Inactive This refill negates all other refills of this medication. Please do not auto refill Singulair 10 mg tablet RxNorm: 797622 1 Tablet(s) PO daily 10/20/19 20 2019 Inactive This refill negates all other refills of this medication gabapentin 300 mg capsule RxNorm: 127989 1 Capsule(s) PO TID 10/20/19 20 2019 Inactive lisinopril 2.5 mg tablet RxNorm: 369980 1 Tablet(s) PO daily 10/20/19 20 2019 Inactive levothyroxine 50 mcg tablet RxNorm: 524219 1 Tablet(s) PO daily 10/20/19 20 2019 Inactive This refill negates all other refills of this medication fenugreek seed extract 500 mg capsule RxNorm: 1 Capsule(s) Oral three times a day 10/17/19 20 2021 Inactive hydrochlorothiazide 25 mg tablet RxNorm: 202574 1 Tablet(s) Oral every day 10/17/19 20 2019 Inactive Alcohol Prep Pads RxNorm: 264940 1 Patch TOP QAM 10/16/19 20 2020 Inactive loperamide 2 mg tablet RxNorm: 425921 1 Tablet(s) Oral as needed take one [...] 2019 Inactive hydrochlorothiazide 25 mg tablet RxNorm: 098349 1 Tablet(s) Oral every day 09/19/20 19 2019 Inactive Sudafed 12 Hour 120 mg tablet,extended release RxNorm: 6619976 1 Tablet(s) Oral every 12 hours as needed 09/11/20 19 2018 Inactive omeprazole 20 mg capsule,delayed release RxNorm: 070002 1 Capsule(s) Oral every day 09/07/20 19 2019 Inactive Sudafed 12 Hour 120 mg tablet,extended release RxNorm: 6995018 1 Tablet(s) Oral every 12 hours as needed 09/04/20 19 2018 Inactive pantoprazole 40 mg tablet,delayed release RxNorm: 753827 1 Tablet(s) Oral every day 08/24/20 19 2018 Inactive discontinue any other H2Blkr. and PPI albuterol sulfate 2.5 mg/3 mL (0.083 %) solution for nebulization RxNorm: 382050 1 Vial Inhalation every four hours as needed as needed for dyspnea 08/17/20 19 2019 Inactive 60/box. This refill negates all other refills of this medication. Please do not fill early. Please do not auto refill. Symbicort 160 mcg-4.5 mcg/actuation HFA aerosol inhaler RxNorm: 1318954 2 Puff(s) INH BID 08/17/20 No Stop Date Active Alcohol Prep Pads RxNorm: 969549 1 Patch TOP QAM 08/17/20 19 2019 Inactive Ventolin HFA 90 mcg/actuation aerosol inhaler RxNorm: 225303 2 Puff(s) INH QID 08/09/20 19 2019 Inactive Please do not fill early. Please do not auto refill. This refill negates all other refills of this medication True Metrix Glucose Test Strip RxNorm: 1 Test Strips Miscellaneous QAM 08/09/20 19 2019 Inactive 100/container atorvastatin 40 mg tablet RxNorm: 483485 1 Tablet(s) Oral every day 07/04/20 19 2019 Inactive levmetamfetamine 50 mg nasal inhaler RxNorm: 1 Unit(s) NASAL Q3-4H Do not use more than every 3 hours or 8 times/24hours 06/26/20 19 2021 Inactive Please do not auto refill. This refill negates all other refills of this medication buspirone 7.5 mg tablet RxNorm: 878712 1 Tablet(s) PO BID 06/26/20 19 2020 Inactive This refill negates all other refills of this medication hydrochlorothiazide 12.5 mg tablet RxNorm: 700680 1 Tablet(s) PO QAM 06/26/20 19 2019 Inactive Ventolin HFA 90 mcg/actuation aerosol inhaler RxNorm: 999867 2 Puff(s) INH QID 06/26/20 19 2018 Inactive Please do not fill early. Please do not auto refill. This refill negates all other refills of this medication Singulair 10 mg tablet RxNorm: 636684 1 Tablet(s) PO daily 06/26/20 19 2019 Inactive This refill negates all other refills of this medication cetirizine 10 mg tablet RxNorm: 0108415 1 Tablet(s) PO daily 06/26/20 19 2019 Inactive This refill negates all other refills of this medication. Please do not auto refill levothyroxine 50 mcg tablet RxNorm: 844587 1 Tablet(s) PO daily 06/26/20 19 2019 Inactive This refill negates all other refills of this medication diclofenac sodium 75 mg tablet,delayed release RxNorm: 124262 1 Tablet(s) PO BID 06/26/20 19 2019 Inactive This refill negates all other refills of this medication ranitidine 150 mg tablet RxNorm: 047302 1 Tablet(s) PO BID 06/26/20 19 2018 Inactive This refill negates all other refills of this medication Calcium 600-D3 Plus (mag-zinc) 600 mg calcium-800 unit-50 mg tablet RxNorm: 1 Tablet(s) PO daily take an additonal tablet for itching. 06/26/20 19 2018 Inactive This refill negates all other refills of this medication albuterol sulfate 2.5 mg/3 mL (0.083 %) solution for nebulization RxNorm: 680174 1 Vial INH QID 06/26/20 19 2018 Inactive 60/box. This refill negates all other refills of this medication. Please do not fill early. Please do not auto refill. lisinopril 2.5 mg tablet RxNorm: 956065 1 Tablet(s) PO daily 06/21/20 19 2019 Inactive gabapentin 300 mg capsule RxNorm: 929745 1 Capsule(s) PO TID 06/21/20 19 2019 Inactive atorvastatin 20 mg tablet RxNorm: 734338 1 Tablet(s) PO QHS 06/07/20 19 2018 Inactive This refill negates all other refills of this medication TRUEplus Lancets 30 gauge RxNorm: 1 Lancets Miscellaneous QAM 08/2018 Inactive 100/box gabapentin 300 mg capsule RxNorm: 514232 1 Capsule(s) PO TID 05/03/20 19 2018 Inactive Flnickolas Complete (iron) 18 mg iron chewable tablet RxNorm: 1 Tablet(s) PO daily 04/04/202021 Inactive This refill negates all other refills of this medication gabapentin 300 mg capsule RxNorm: 386451 1 Capsule(s) PO TID as needed 02/01/202018 Inactive True Metrix Glucose Test Strip RxNorm: 1 Test Strips Miscellaneous QAM 02/01/20 19 2018 Inactive 100/container Alcohol Prep Pads RxNorm: 994735 1 Patch TOP QAM 02/01/202018 Inactive TRUEplus Lancets 30 gauge RxNorm: 1 Lancets Miscellaneous QAM 02/01/20 19 2018 Inactive 100/box lisinopril 2.5 mg tablet RxNorm: 835695 1 Tablet(s) PO daily 12/28/192018 Inactive ranitidine 150 mg tablet RxNorm: 221106 1 Tablet(s) PO BID 10/21/192018 Inactive This refill negates all other refills of this medication albuterol sulfate 2.5 mg/3 mL (0.083 %) solution for nebulization RxNorm: 622387 1 Vial INH QID 10/21/192018 Inactive 60/box. [...] this medication gabapentin 300 mg capsule RxNorm: 445136 1 Capsule(s) PO TID as needed 10/21/192018 Inactive atorvastatin 20 mg tablet RxNorm: 963521 1 Tablet(s) PO QHS 10/21/192018 Inactive This refill negates all other refills of this medication trazodone 50 mg tablet RxNorm: 364452 1 Tablet(s) PO QHS 10/21/192018 Inactive This refill negates all other refills of this medication Ventolin HFA 90 mcg/actuation aerosol inhaler RxNorm: 188886 2 Puff(s) INH QID 10/21/192018 Inactive Please do not fill early. Please do not auto refill. This refill negates all other refills of this medication Calcium 600-D3 Plus 600 mg calcium-800 unit-50 mg tablet RxNorm: 1 Tablet(s) PO daily take an additonal tablet for itching. 10/21/192018 Inactive This refill negates all other refills of this medication Singulair 10 mg tablet RxNorm: 007105 1 Tablet(s) PO daily 10/21/192018 Inactive This refill negates all other refills of this medication buspirone 7.5 mg tablet RxNorm: 722703 1 Tablet(s) PO BID 10/21/192018 Inactive This refill negates all other refills of this medication diclofenac sodium 75 mg tablet,delayed release RxNorm: 228072 1 Tablet(s) PO BID 10/21/192018 Inactive This refill negates all other refills of this medication hydrochlorothiazide 12.5 mg tablet RxNorm: 774362 1 Tablet(s) PO QAM 10/21/192018 Inactive metoprolol succinate ER 50 mg tablet,extended release 24 hr RxNorm: 232845 1 Tablet(s) PO daily 10/21/192018 Inactive This refill negates all other refills of this medication levothyroxine 50 mcg tablet RxNorm: 532663 1 Tablet(s) PO daily 10/21/192018 Inactive This refill negates all other refills of this medication cetirizine 10 mg tablet RxNorm: 3784040 1 Tablet(s) PO daily 10/21/192018 Inactive This refill negates all other refills of this medication. Please do not auto refill Flintstones Complete (iron) 18 mg iron chewable tablet RxNorm: 1 Tablet(s) PO daily 10/21/19 19 2018 Inactive This refill negates all other refills of this medication buspirone 7.5 mg tablet RxNorm: 307938 1 Tablet(s) PO BID 10/12/19 19 2018 Inactive cetirizine 10 mg tablet RxNorm: 7778012 1 Tablet(s) PO daily 09/28/20 18 2018 Inactive Guaiasorb DM 10 mg-100 mg/5 mL oral liquid RxNorm: 859266 10 Milliliter(s) PO As needed every 4 hr 09/24/202018 Inactive Vicks Vaporub 4.7 %-1.2 %-2.6 % topical ointment RxNorm: 8771336 1 Application TOP TID 09/24/20 18 2018 Inactive levmetamfetamine 50 mg nasal inhaler RxNorm: 1 Unit(s) NASAL Q3-4H 09/24/20 18 2017 Inactive sertraline 50 mg tablet RxNorm: 339521 1 Tablet(s) PO daily 09/09/20 18 2018 Inactive Please note dose trazodone 50 mg tablet RxNorm: 916380 1 Tablet(s) PO QHS 09/06/20 18 2018 Inactive sertraline 50 mg tablet RxNorm: 441439 1 Tablet(s) PO daily 09/06/20 18 2017 Inactive amoxicillin 500 mg tablet RxNorm: 152402 1 Tablet(s) PO Q12H 08/31/20 18 2017 Inactive albuterol sulfate 2.5 mg/3 mL (0.083 %) solution for nebulization RxNorm: 028457 1 Vial INH QID 08/10/20 18 2018 Inactive 60/box. Please do not fill early. Please do not auto refill. Prozac 10 mg capsule RxNorm: 908063 1 Capsule(s) PO daily 08/09/20 18 2017 Inactive buspirone 7.5 mg tablet RxNorm: 617571 1 Tablet(s) PO BID 08/09/20 18 2018 Inactive gabapentin 300 mg capsule RxNorm: 623885 1 Capsule(s) PO TID as needed 08/01/20 18 2018 Inactive hydrochlorothiazide 12.5 mg tablet RxNorm: 819943 1 Tablet(s) PO QAM 08/01/20 18 2018 Inactive ranitidine 150 mg tablet RxNorm: 350996 1 Tablet(s) PO BID 08/01/20 18 2018 Inactive Macrobid 100 mg capsule RxNorm: 753225 1 Capsule(s) PO Q12H 06/21/20 18 2017 Inactive Singulair 10 mg tablet RxNorm: 395746 1 Tablet(s) PO daily 06/14/20 18 2018 Inactive Ventolin HFA 90 mcg/actuation aerosol inhaler RxNorm: 7534299 2 Puff(s) INH QID 06/14/20 18 2018 Inactive Singulair 10 mg tablet RxNorm: 788134 1 Tablet(s) PO daily 06/14/20 18 2017 Inactive buspirone 7.5 mg tablet RxNorm: 210981 1 Tablet(s) PO BID 06/14/20 18 2017 Inactive Prozac 10 mg capsule RxNorm: 616144 1 Capsule(s) PO daily 06/14/20 18 2017 Inactive Neilmed Pediatric Sinus Rinse Refill packet RxNorm: 1 Unit Dose NASAL PRN 05/31/20 18 2021 Inactive diclofenac sodium 75 mg tablet,delayed release RxNorm: 141817 1 Tablet(s) PO BID 05/31/20 18 2017 Inactive lisinopril 2.5 mg tablet RxNorm: 014927 1 Tablet(s) PO daily 05/31/20 18 2017 Inactive metoprolol succinate ER 50 mg tablet,extended release 24 hr RxNorm: 949571 1 Tablet(s) PO daily 05/31/20 18 2017 Inactive levothyroxine 50 mcg tablet RxNorm: 507514 1 Tablet(s) PO daily 05/31/20 18 2017 Inactive TRUEplus Lancets 30 gauge RxNorm: 1 Lancets Miscellaneous QAM 05/31/20 18 2017 Inactive 100/box Ventolin HFA 90 mcg/actuation aerosol inhaler RxNorm: 972552 2 Puff(s) INH QID 05/31/20 18 2017 Inactive Aleve 220 mg capsule RxNorm: 1773191 1 Capsule(s) PO BID 05/31/20 18 2018 Inactive ranitidine 150 mg tablet RxNorm: 764285 1 Tablet(s) PO BID 05/31/20 18 2017 Inactive gabapentin 300 mg capsule RxNorm: 119188 1 Capsule(s) PO TID as needed 05/31/20 18 2017 Inactive atorvastatin 20 mg tablet RxNorm: 079962 1 Tablet(s) PO QHS 05/31/20 18 2017 Inactive True Metrix Glucose Test Strip RxNorm: 1 Test Strips Miscellaneous QAM 05/31/20 18 2017 Inactive 50/container Calcium 600-D3 Plus 600 mg calcium-800 unit-50 mg tablet RxNorm: 1 Tablet(s) PO daily take an additonal tablet for itching. 05/31/20 18 2017 Inactive hydrochlorothiazide 12.5 mg tablet RxNorm: 985827 1 Tablet(s) PO QAM 05/31/20 18 2017 Inactive Flintstones Complete (iron) 18 mg iron chewable tablet RxNorm: 1 Tablet(s) PO daily 05/31/20 18 2017 Inactive d-mannose oral powder RxNorm: PO 18 2021 Inactive True Metrix Glucose Meter RxNorm: miscellaneous 08/17/20 19 2018 Inactive sertraline 50 mg tablet RxNorm: 851508 1 Tablet(s) PO daily 11/28/19 20 2019 Inactive loperamide 2 mg tablet RxNorm: 168238 oral 09/29/20 19 2018 Inactive Symbicort 160 mcg-4.5 mcg/actuation HFA aerosol inhaler RxNorm: 7030757 2 Puff(s) INH BID 08/17/20 19 2018 [...] VACP 1 Fall Risk Assessment SNOMED CT: 90736077 4 CPT-4: DFRA01/13/2021emmes Fany AssessmentCPT-4: DSWA12/17/2020Urinalysis, dip stickCPT-4: 509336009/24/2020Patient Health QuestionnaireCPT-4: DPHQ 08/19/2020ElectrocardiogramCPT-4: 2563216Tobacco Assessment/Screening CPT-4: TCA01/01/2020Fall Risk AssessmentSNOMED CT: 426713855 CPT-4: DFRA01/01/2020Functional AssessmentCPT-4: DFA01/01/2020Semmes Fany AssessmentCPT-4: DSWA11/28/2019Patient Health QuestionnaireCPT-4: DPHQ11/28/2019 Hilham Fany AssessmentCPT-4: DSWA10/17/2019HypertensionCPT-4: HTN10/17/[address]: 557947964 CPT-4: DFRA09/19/2019Functional AssessmentCPT-4: DFA111/20/2018Urinalysis, dip stickCPT-4: 391351806/21/2019Tobacco Assessment/ScreeningCPT-4: TCA05/24/2019 Patient Health QuestionnaireCPT-4: DPHQ05/24/2019AHA/REBECCA Classification AssessmentCPT-4: DAHA04/25/2019Controlled Substance ReportCPT-4: CTRSU04/25/2019 Urinalysis, dip stickCPT-4: 920410403/28/2019Urinalysis, dip stickCPT-4: 41890 03/28/20195845H0P-IzpndmsfmskkehyNWY-4: 81724IitkaabI1K-NathmfdjtbplyjyOQN-8: 81258 IupinzqU8F-XznlzyfmhsghrdbUMA-1: 30947MylymmrU1K-KhbtkgmregblpxiYHW-4: 18248 DfdittzI1P-AbghhdbxnbmttwmHSJ-2: 51259LouaixdQ7H-ZevomnsognvavtxJVN-0: 33242 FeedrqaW3T-KgzcdtvispymlniRDP-9: [id number] ReferralSNOMED CT: [id number] CPT-4: [id number] Reason For Visit No Reason For Visit data Plan of Care Planned Activity Notes Codes Status Date Referral: Pending Gynecology Referral Informatio n Referral ProcessedReferral: Pending Pulmonology Referral InformationReferralProcessed Referral: Pending Psychiatry Referral InformationReferralInitiatedReferral: Pending Respiratory Services Referral InformationReferralInitiatedReferral: Pending Ophthalmology Referral InformationReferralInitiatedReferral: [facility] WPtel: [address] [place] [address] USWriter placed a call out to the patient to notify her that it has been recommended that she be seenby a urologist. Patient agreed to be seen, does not have a provider of choice and no transportationissues. Stone Mason faxed referral and clinical notes to [facility] in [place], [place] near the patient's home. Patient to [...] seen and prefers a provider in the [place] or [place] area. Stone Mason placed a call out to everyone listed in the area and the only location that was able to accept the patient's insurance was [place] [address] [place] [address] and spoke with Maylin. Maylin asked that the patient's referral, face sheet and visit notes be faxed to . Stone Mason faxed over requested documents. Patient appointment confirmation letter generated and mailed to her home address. Patient to call to schedule an appointment.ProcessedReferral: [facility] WPtel: [address] [id number] USPatient notified that it has been advised that she be seen by Neurology. Patient agreed to be seen and prefers to be seen by a provider in the [place], [place] area. Patient denies any concerns with transportation, and prefers to schedule her own appointment. Stone Mason placed a call out to [facility] and spoke with [...]
--- OUTSIDE RECORDS SUMMARY | 2023-12-07 02:17 | XMS_ITS | CCD ---
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 Tread Cutter Name Role Phone Palomo KING, Anna Primary Care Provider Unav ailable Unavailable Chronic Care Management Unavaila ble Summary Purpose DataExchange Insurance Providers Payer name Policy type / Coverage type Covered libertarian ID Effective Begin Date Effective End Date [employer] [facility] [id number] Unknown Unknown Family history Mother Diagnosis Age [...] 05/31/2018 Education level Unknown Some High School 10th05/31/20181954FlbnybiyoqCgmndueLyvynlfccp02/29/2018Tobacco historySNOMED CT: 230414833Fvp never smoked or chewed ljdvyxt8705/31/2018Alcohol historySNOMED CT: 317751744Phhbf drinks qrxnvhw8005/31/2018Has the patient ever used illegal drugs? UnknownHas never used illegal drugs05/31/2018DNR Order/ Advanced Directive UnknownFull Code05/31/2018 Allergies, Adverse Reactions, Alerts Substance Reaction Codes Entered Date Inactivated Date Status OxyContin itch, RxNorm: 944971 01/13/2021 No Inactive Da te Active *No known food allergies Xbglxht9509/06/2018No Inactive DateActiveMethylprednisolonehivesRxNorm: 6902 09/06/2018No Inactive DateActive Problems Condition Codes Effective Dates Condition St atus Dyspnea, unspecified ICD-10: R06.00 ICD-9: 786.0902/08/2019ActiveGERD (gastroesophageal reflux disease)ICD-10: K21.9 ICD-9: 530.8109/07/2019ActiveHyperlipidemia, unspecifiedICD-10: E78.5 ICD-9: 272.408/ActiveType 2 diabetes mellitus [...] and collapseICD-10: R55 ICD-9: 780.ActiveAnorexiaICD-10: R63.0 ICD-9: 783.003/ctivePost-traumatic stress disorder, unspecifiedICD-10: F43.10 [...] Fill Instructions lisinopril 2.5 mg tablet RxNorm: 405385 Take 1 Tablet(s) Oral every day 07/11/20 21 2020 Inactive hydrochlorothiazide 25 mg tablet RxNorm: 878003 Take 1 Tablet(s) Oral every day 06/12/20 21 2020 Inactive ondansetron 4 mg disintegrating tablet RxNorm: 079132 1 Tablet(s) Oral two times a day 06/10/20 21 2020 Inactive Sudafed 12 Hour 120 mg tablet,extended release RxNorm: 5983343 TAKE 1 TABLET BY MOUTH EVERY 12 HOURS NEEDED 06/01/20 21 2021 Inactive Heartburn Relief (famotidine) 10 mg tablet RxNorm: 211784 Take 1 Tablet(s) Oral every morning 05/07/20 21 2020 Inactive omeprazole 20 mg capsule,delayed release RxNorm: 424717 1 Capsule(s) Oral every evening 04/03/20 21 2020 Inactive sertraline 100 mg tablet RxNorm: 180923 2 Tablet(s) Oral every day 03/13/202020 Inactive levothyroxine 50 mcg tablet RxNorm: 278481 TAKE (1) TABLET BY MOUTH DAILY 02/04/20 21 2020 Inactive metformin 500 mg tablet RxNorm: 221227 1 Tablet(s) Oral two times a day take with 500mg to equal 1000mg 01/14/20 21 2020 Inactive gabapentin 300 mg capsule RxNorm: 639588 TAKE 1 CAPSULE BY MOUTH THREE TIMES A DAY 01/14/20 21 2020 Inactive lisinopril 2.5 mg tablet RxNorm: 408698 TAKE 1 TABLET BY MOUTH DAILY 01/06/20 21 2020 Inactive gabapentin 300 mg capsule RxNorm: 897087 TAKE 1 CAPSULE BY MOUTH THREE TIMES A DAY 01/06/20 21 2020 Inactive Singulair 10 mg tablet RxNorm: 557494 TAKE (1) TABLET BY MOUTH DAILY 01/06/20 21 2020 Inactive metformin 1,000 mg tablet RxNorm: 194956 1 Tablet(s) Oral two times a day 01/06/20 21 2020 Inactive atorvastatin 40 mg tablet RxNorm: 832368 1 Tablet(s) Oral every day 12/06/19 21 2020 Inactive omeprazole 20 mg capsule,delayed release RxNorm: 976344 1 Capsule(s) Oral every evening 11/24/19 21 2020 Inactive famotidine 10 mg tablet RxNorm: 800536 1 Tablet(s) Oral every morning 11/24/19 21 2020 Inactive Alcohol Prep Pads RxNorm: 537240 USE EACH MORNING 10/14/19 21 2020 Inactive omeprazole 20 mg capsule,delayed release RxNorm: 842557 1 Capsule(s) Oral two times a day 10/13/19 21 2021 Inactive omeprazole 20 mg capsule,delayed release RxNorm: 738038 TAKE 1 CAPSULE BY MOUTH EVERY DAY 10/08/19 21 2021 Inactive Macrobid 100 mg capsule RxNorm: 368183 1 Capsule(s) Oral every 12 hours with food 10/01/20 20 2020 Inactive omeprazole 20 mg capsule,delayed release RxNorm: 596691 1 Capsule(s) Oral two times a day 09/24/20 20 2021 Inactive metformin 1,000 mg tablet RxNorm: 579834 1 Tablet(s) Oral two times a day 08/19/20 20 2020 Inactive start on September 11, 2020 metformin 500 mg tablet RxNorm: 218674 1 Tablet(s) Oral two times a day take with 500mg to equal 1000mg 08/19/20 20 2019 Inactive gabapentin 300 mg capsule RxNorm: 692629 TAKE 1 CAPSULE BY MOUTH THREE TIMES DAILY 07/11/20 20 2020 Inactive cetirizine 10 mg tablet RxNorm: 5964996 TAKE (1) TABLET BY MOUTH DAILY 07/11/20 20 2020 Inactive metformin 500 mg tablet RxNorm: 779249 1 Tablet(s) Oral two times a day 07/08/20 20 2019 Inactive loperamide 2 mg tablet RxNorm: 691455 1 Tablet(s) Oral as needed take one tablet after each loose stool, maximum of 8 tablets in 24 hours 06/24/20 20 2021 Inactive Sudafed 12 Hour 120 mg tablet,extended release RxNorm: 8112253 TAKE 1 TABLET BY MOUTH EVERY 12 HOURS NEEDED 06/11/20 20 2019 Inactive hydrochlorothiazide 25 mg tablet RxNorm: 329831 TAKE (1) TABLET BY MOUTH EVERY DAY 06/11/20 20 2019 Inactive omeprazole 20 mg capsule,delayed release RxNorm: 812585 TAKE 1 CAPSULE BY MOUTH EVERY DAY 05/14/20 20 2020 Inactive metformin 500 mg tablet RxNorm: 687668 1 Tablet(s) Oral every day 05/12/20 20 2019 Inactive True Metrix Glucose Test Strip RxNorm: 1 Test Strips Miscellaneous two times a day as needed 04/17/20 No Stop Date Active metformin 500 mg tablet RxNorm: 308426 1 Tablet(s) Oral every day 04/17/20 20 2019 Inactive diclofenac sodium 75 mg tablet,delayed release RxNorm: 779671 1 Tablet(s) PO BID 04/14/20 20 2021 Inactive This refill negates all other refills of this medication Sudafed 12 Hour 120 mg tablet,extended release RxNorm: 3052297 TAKE 1 TABLET BY MOUTH EVERY 12 HOURS NEEDED 03/14/20 20 2019 Inactive True Metrix Glucose Test Strip RxNorm: 1 Test Strips Miscellaneous every morning 03/13/20 20 2019 Inactive 100/container True Metrix Glucose Test Strip RxNorm: 1 Test Strips Miscellaneous QAM 02/22/20 20 2019 Inactive 100/container loperamide 2 mg tablet RxNorm: 537248 1 Tablet(s) Oral as needed take one tablet after each loose stool, maximum of 8 tablets in 24 hours 02/22/20 20 2019 Inactive cetirizine 10 mg tablet RxNorm: 9210239 1 Tablet(s) PO daily 01/17/20 20 2019 Inactive loperamide 2 mg tablet RxNorm: 205243 1 Tablet(s) Oral as needed take one tablet after each loose stool, maximum of 8 tablets in 24 hours 01/17/20 20 2019 Inactive quetiapine 100 mg tablet RxNorm: 615804 1 Tablet(s) Oral every night at bedtime 01/17/20 20 2019 Inactive levothyroxine 50 mcg tablet RxNorm: 218074 1 Tablet(s) PO daily 01/17/20 20 2020 Inactive gabapentin 300 mg capsule RxNorm: 014443 1 Capsule(s) PO TID 01/17/20 20 2019 Inactive levothyroxine 50 mcg tablet RxNorm: 251540 1 Tablet(s) PO daily 01/15/20 20 2019 Inactive lisinopril 2.5 mg tablet RxNorm: 777860 1 Tablet(s) PO daily 01/15/20 20 2020 Inactive gabapentin 300 mg capsule RxNorm: 678975 1 Capsule(s) PO TID 01/15/20 20 2019 Inactive cetirizine 10 mg tablet RxNorm: 2517110 1 Tablet(s) PO daily 01/15/20 20 2019 Inactive Singulair 10 mg tablet RxNorm: 317635 1 Tablet(s) PO daily 01/15/20 20 2020 Inactive gentamicin 0.3 % eye drops RxNorm: 666867 1 Drop(s) ophthalmic (eye) four times a day 12/29/19 20 2019 Inactive gentamicin 0.3 % eye drops RxNorm: 091065 1 Drop(s) ophthalmic (eye) four times a day 12/29/19 20 2019 Inactive gentamicin 0.3 % eye drops RxNorm: 203570 1 Drop(s) ophthalmic (eye) four times a day 12/29/19 20 2019 Inactive hydrochlorothiazide 25 mg tablet RxNorm: 492900 1 Tablet(s) Oral every day 12/21/19 20 2019 Inactive Sudafed 12 Hour 120 mg tablet,extended release RxNorm: 4720322 TAKE (1) TABLET BY MOUTH EVERY 12 HOURS NEEDED 12/21/19 20 2019 Inactive loperamide 2 mg tablet RxNorm: 143898 1 Tablet(s) Oral as needed take one tablet after each loose stool, maximum of 8 tablets in 24 hours 12/11/19 20 2019 Inactive loperamide 2 mg tablet RxNorm: 470572 1 Tablet(s) Oral as needed take one tablet after each loose stool, maximum of 8 tablets in 24 hours 12/11/19 20 2019 Inactive atorvastatin 40 mg tablet RxNorm: 694179 1 Tablet(s) Oral every day 11/29/19 20 2020 Inactive quetiapine 100 mg tablet RxNorm: 541070 1 Tablet(s) Oral every night at bedtime 11/28/19 20 2019 Inactive sertraline 100 mg tablet RxNorm: 192349 1 Tablet(s) Oral 11/28/19 20 2019 Inactive omeprazole 20 mg capsule,delayed release RxNorm: 867070 1 Capsule(s) Oral every day 11/20/19 20 2019 Inactive amoxicillin 250 mg capsule RxNorm: 580402 1 Capsule(s) Oral three times a day 11/07/19 20 2019 Inactive multivitamin with iron-mineral tablet RxNorm: 1 Tablet(s) Oral every day 10/29/19 20 2021 Inactive cetirizine 10 mg tablet RxNorm: 9955921 1 Tablet(s) PO daily 10/20/192019 Inactive This refill negates all other refills of this medication. Please do not auto refill Singulair 10 mg tablet RxNorm: 061717 1 Tablet(s) PO daily 10/20/19 20 2019 Inactive This refill negates all other refills of this medication gabapentin 300 mg capsule RxNorm: 019043 1 Capsule(s) PO TID 10/20/19 20 2019 Inactive lisinopril 2.5 mg tablet RxNorm: 134726 1 Tablet(s) PO daily 10/20/19 20 2019 Inactive levothyroxine 50 mcg tablet RxNorm: 773618 1 Tablet(s) PO daily 10/20/19 20 2019 Inactive This refill negates all other refills of this medication fenugreek seed extract 500 mg capsule RxNorm: 1 Capsule(s) Oral three times a day 10/17/19 20 2021 Inactive hydrochlorothiazide 25 mg tablet RxNorm: 407700 1 Tablet(s) Oral every day 10/17/19 20 2019 Inactive Alcohol Prep Pads RxNorm: 911062 1 Patch TOP QAM 10/16/19 20 2020 Inactive loperamide 2 mg tablet RxNorm: 395191 1 Tablet(s) Oral as needed take one [...] 09/19/202019 Inactive hydrochlorothiazide 25 mg tablet RxNorm: 684481 1 Tablet(s) Oral every day 09/19/202019 Inactive Sudafed 12 Hour 120 mg tablet,extended release RxNorm: 6680248 1 Tablet(s) Oral every 12 hours as needed 09/11/202018 Inactive omeprazole 20 mg capsule,delayed release RxNorm: 433016 1 Capsule(s) Oral every day 09/07/20 19 2019 Inactive Sudafed 12 Hour 120 mg tablet,extended release RxNorm: 9021382 1 Tablet(s) Oral every 12 hours as needed 09/04/20 19 2018 Inactive pantoprazole 40 mg tablet,delayed release RxNorm: 736281 1 Tablet(s) Oral every day 08/24/20 19 2018 Inactive discontinue any other H2Blkr. and PPI albuterol sulfate 2.5 mg/3 mL (0.083 %) solution for nebulization RxNorm: 804983 1 Vial Inhalation every four hours as needed as needed for dyspnea 08/17/20 19 2019 Inactive 60/box. This refill negates all other refills of this medication. Please do not fill early. Please do not auto refill. Symbicort 160 mcg-4.5 mcg/actuation HFA aerosol inhaler RxNorm: 8043204 2 Puff(s) INH BID 08/17/20 No Stop Date Active Alcohol Prep Pads RxNorm: 851264 1 Patch TOP QAM 08/17/20 19 2019 Inactive Ventolin HFA 90 mcg/actuation aerosol inhaler RxNorm: 374129 2 Puff(s) INH QID 08/09/20 19 2019 Inactive Please do not fill early. Please do not auto refill. This refill negates all other refills of this medication True Metrix Glucose Test Strip RxNorm: 1 Test Strips Miscellaneous QAM 08/09/20 19 2019 Inactive 100/container atorvastatin 40 mg tablet RxNorm: 432168 1 Tablet(s) Oral every day 07/04/20 19 2019 Inactive levmetamfetamine 50 mg nasal inhaler RxNorm: 1 Unit(s) NASAL Q3-4H Do not use more than every 3 hours or 8 times/24hours 06/26/20 19 2021 Inactive Please do not auto refill. This refill negates all other refills of this medication buspirone 7.5 mg tablet RxNorm: 291442 1 Tablet(s) PO BID 06/26/20 19 2020 Inactive This refill negates all other refills of this medication hydrochlorothiazide 12.5 mg tablet RxNorm: 956192 1 Tablet(s) PO QAM 06/26/20 19 2019 Inactive Ventolin HFA 90 mcg/actuation aerosol inhaler RxNorm: 773520 2 Puff(s) INH QID 06/26/20 19 2018 Inactive Please do not fill early. Please do not auto refill. This refill negates all other refills of this medication Singulair 10 mg tablet RxNorm: 112502 1 Tablet(s) PO daily 06/26/20 19 2019 Inactive This refill negates all other refills of this medication cetirizine 10 mg tablet RxNorm: 5887329 1 Tablet(s) PO daily 06/26/20 19 2019 Inactive This refill negates all other refills of this medication. Please do not auto refill levothyroxine 50 mcg tablet RxNorm: 126444 1 Tablet(s) PO daily 06/26/20 19 2019 Inactive This refill negates all other refills of this medication diclofenac sodium 75 mg tablet,delayed release RxNorm: 548516 1 Tablet(s) PO BID 06/26/20 19 2019 Inactive This refill negates all other refills of this medication ranitidine 150 mg tablet RxNorm: 856232 1 Tablet(s) PO BID 06/26/20 19 2018 Inactive This refill negates all other refills of this medication Calcium 600-D3 Plus (mag-zinc) 600 mg calcium-800 unit-50 mg tablet RxNorm: 1 Tablet(s) PO daily take an additonal tablet for itching. 06/26/20 19 2018 Inactive This refill negates all other refills of this medication albuterol sulfate 2.5 mg/3 mL (0.083 %) solution for nebulization RxNorm: 738542 1 Vial INH QID 06/26/20 19 2018 Inactive 60/box. This refill negates all other refills of this medication. Please do not fill early. Please do not auto refill. lisinopril 2.5 mg tablet RxNorm: 721534 1 Tablet(s) PO daily 06/21/20 19 2019 Inactive gabapentin 300 mg capsule RxNorm: 775743 1 Capsule(s) PO TID 06/21/20 19 2019 Inactive atorvastatin 20 mg tablet RxNorm: 754622 1 Tablet(s) PO QHS 06/07/20 19 2018 Inactive This refill negates all other refills of this medication TRUEplus Lancets 30 gauge RxNorm: 1 Lancets Miscellaneous QAM 05/29/20 19 2018 Inactive 100/box gabapentin 300 mg capsule RxNorm: 755801 1 Capsule(s) PO TID 05/03/20 19 2018 Inactive Flnickolas Complete (iron) 18 mg iron chewable tablet RxNorm: 1 Tablet(s) PO daily 04/04/202021 Inactive This refill negates all other refills of this medication gabapentin 300 mg capsule RxNorm: 726514 1 Capsule(s) PO TID as needed 02/01/202018 Inactive True Metrix Glucose Test Strip RxNorm: 1 Test Strips Miscellaneous QA 02/01/20 19 2018 Inactive 100/container Alcohol Prep Pads RxNorm: 179494 1 Patch TOP QA 02/01/202018 Inactive TRUEplus Lancets 30 gauge RxNorm: 1 Lancets Miscellaneous QAM 02/01/20 19 2018 Inactive 100/box lisinopril 2.5 mg tablet RxNorm: 883369 1 Tablet(s) PO daily 12/28/192018 Inactive ranitidine 150 mg tablet RxNorm: 070229 1 Tablet(s) PO BID 10/21/192018 Inactive This refill negates all other refills of this medication albuterol sulfate 2.5 mg/3 mL (0.083 %) solution for nebulization RxNorm: 497576 1 Vial INH QID 10/21/192018 Inactive 60/box. [...] this medication gabapentin 300 mg capsule RxNorm: 463242 1 Capsule(s) PO TID as needed 10/21/19 19 2018 Inactive atorvastatin 20 mg tablet RxNorm: 587989 1 Tablet(s) PO QHS 10/21/19 19 2018 Inactive This refill negates all other refills of this medication trazodone 50 mg tablet RxNorm: 712974 1 Tablet(s) PO QHS 10/21/19 19 2018 Inactive This refill negates all other refills of this medication Ventolin HFA 90 mcg/actuation aerosol inhaler RxNorm: 763080 2 Puff(s) INH QID 10/21/19 19 2018 Inactive Please do not fill early. Please do not auto refill. This refill negates all other refills of this medication Calcium 600-D3 Plus 600 mg calcium-800 unit-50 mg tablet RxNorm: 1 Tablet(s) PO daily take an additonal tablet for itching. 10/21/192018 Inactive This refill negates all other refills of this medication Singulair 10 mg tablet RxNorm: 029308 1 Tablet(s) PO daily 10/21/192018 Inactive This refill negates all other refills of this medication buspirone 7.5 mg tablet RxNorm: 176746 1 Tablet(s) PO BID 10/21/192018 Inactive This refill negates all other refills of this medication diclofenac sodium 75 mg tablet,delayed release RxNorm: 249326 1 Tablet(s) PO BID 10/21/19 19 2018 Inactive This refill negates all other refills of this medication hydrochlorothiazide 12.5 mg tablet RxNorm: 590125 1 Tablet(s) PO QAM 10/21/19 19 2018 Inactive metoprolol succinate ER 50 mg tablet,extended release 24 hr RxNorm: 289406 1 Tablet(s) PO daily 10/21/192018 Inactive This refill negates all other refills of this medication levothyroxine 50 mcg tablet RxNorm: 424244 1 Tablet(s) PO daily 10/21/19 19 2018 Inactive This refill negates all other refills of this medication cetirizine 10 mg tablet RxNorm: 9235250 1 Tablet(s) PO daily 10/21/19 19 2018 Inactive This refill negates all other refills of this medication. Please do not auto refill Flintstones Complete (iron) 18 mg iron chewable tablet RxNorm: 1 Tablet(s) PO daily 10/21/19 19 2018 Inactive This refill negates all other refills of this medication buspirone 7.5 mg tablet RxNorm: 413708 1 Tablet(s) PO BID 10/12/19 19 2018 Inactive cetirizine 10 mg tablet RxNorm: 2664369 1 Tablet(s) PO daily 09/28/20 18 2018 Inactive Guaiasorb DM 10 mg-100 mg/5 mL oral liquid RxNorm: 087685 10 Milliliter(s) PO As needed every 4 hr 09/24/20 18 2018 Inactive Vicks Vaporub 4.7 %-1.2 %-2.6 % topical ointment RxNorm: 0298261 1 Application TOP TID 09/24/20 18 2018 Inactive levmetamfetamine 50 mg nasal inhaler RxNorm: 1 Unit(s) NASAL Q3-4H 09/24/20 18 2017 Inactive sertraline 50 mg tablet RxNorm: 102254 1 Tablet(s) PO daily 09/09/20 18 2018 Inactive Please note dose trazodone 50 mg tablet RxNorm: 480638 1 Tablet(s) PO QHS 09/06/20 18 2018 Inactive sertraline 50 mg tablet RxNorm: 842887 1 Tablet(s) PO daily 09/06/20 18 2017 Inactive amoxicillin 500 mg tablet RxNorm: 383247 1 Tablet(s) PO Q12H 08/31/20 18 2017 Inactive albuterol sulfate 2.5 mg/3 mL (0.083 %) solution for nebulization RxNorm: 208526 1 Vial INH QID 08/10/20 18 2018 Inactive 60/box. Please do not fill early. Please do not auto refill. Prozac 10 mg capsule RxNorm: 021653 1 Capsule(s) PO daily 08/09/20 18 2017 Inactive buspirone 7.5 mg tablet RxNorm: 889522 1 Tablet(s) PO BID 08/09/20 18 2018 Inactive gabapentin 300 mg capsule RxNorm: 313241 1 Capsule(s) PO TID as needed 08/01/20 18 2018 Inactive hydrochlorothiazide 12.5 mg tablet RxNorm: 256742 1 Tablet(s) PO QAM 08/01/20 18 2018 Inactive ranitidine 150 mg tablet RxNorm: 147473 1 Tablet(s) PO BID 08/01/20 18 2018 Inactive Macrobid 100 mg capsule RxNorm: 930948 1 Capsule(s) PO Q12H 06/21/20 18 2017 Inactive Singulair 10 mg tablet RxNorm: 353480 1 Tablet(s) PO daily 06/14/20 18 2018 Inactive Ventolin HFA 90 mcg/actuation aerosol inhaler RxNorm: 3058996 2 Puff(s) INH QID 06/14/20 18 2018 Inactive Singulair 10 mg tablet RxNorm: 504222 1 Tablet(s) PO daily 06/14/20 18 2017 Inactive buspirone 7.5 mg tablet RxNorm: 676418 1 Tablet(s) PO BID 06/14/20 18 2017 Inactive Prozac 10 mg capsule RxNorm: 340586 1 Capsule(s) PO daily 06/14/20 18 2017 Inactive Neilmed Pediatric Sinus Rinse Refill packet RxNorm: 1 Unit Dose NASAL PRN 05/31/20 18 2021 Inactive diclofenac sodium 75 mg tablet,delayed release RxNorm: 368851 1 Tablet(s) PO BID 05/31/20 18 2017 Inactive lisinopril 2.5 mg tablet RxNorm: 004495 1 Tablet(s) PO daily 05/31/20 18 2017 Inactive metoprolol succinate ER 50 mg tablet,extended release 24 hr RxNorm: 417404 1 Tablet(s) PO daily 05/31/20 18 2017 Inactive levothyroxine 50 mcg tablet RxNorm: 648619 1 Tablet(s) PO daily 05/31/20 18 2017 Inactive TRUEplus Lancets 30 gauge RxNorm: 1 Lancets Miscellaneous QAM 05/31/20 18 2017 Inactive 100/box Ventolin HFA 90 mcg/actuation aerosol inhaler RxNorm: 756044 2 Puff(s) INH QID 05/31/20 18 2017 Inactive Aleve 220 mg capsule RxNorm: 6634465 1 Capsule(s) PO BID 05/31/20 18 2018 Inactive ranitidine 150 mg tablet RxNorm: 002062 1 Tablet(s) PO BID 05/31/20 18 2017 Inactive gabapentin 300 mg capsule RxNorm: 827746 1 Capsule(s) PO TID as needed 05/31/20 18 2017 Inactive atorvastatin 20 mg tablet RxNorm: 320561 1 Tablet(s) PO QHS 05/31/20 18 2017 Inactive True Metrix Glucose Test Strip RxNorm: 1 Test Strips Miscellaneous [facility] 05/31/20 18 2017 Inactive 50/container Calcium 600-D3 Plus 600 mg calcium-800 unit-50 mg tablet RxNorm: 1 Tablet(s) PO daily take an additonal tablet for itching. 05/31/20 18 2017 Inactive hydrochlorothiazide 12.5 mg tablet RxNorm: 376748 1 Tablet(s) PO QAM 05/31/20 18 2017 Inactive Flintstones Complete (iron) 18 mg iron chewable tablet RxNorm: 1 Tablet(s) PO daily 05/31/20 18 2017 Inactive d-mannose oral powder RxNorm: PO 18 2021 Inactive True Metrix Glucose Meter RxNorm: miscellaneous 08/17/20 19 2018 Inactive sertraline 50 mg tablet RxNorm: 475123 1 Tablet(s) PO daily 11/28/19 20 2019 Inactive loperamide 2 mg tablet RxNorm: 959582 oral 09/29/20 19 2018 Inactive Symbicort 160 mcg-4.5 mcg/actuation HFA aerosol inhaler RxNorm: 1209630 2 Puff(s) INH BID 08/17/20 19 2018 Inactive Medication Administered No Medication Administered data Procedures Procedure Codes Date Frailty Screening CPT-4: SFD 05/20/2021 Hypertension CPT-4: HTN 04/01/2021 Tobacco Assessment/Screening CPT-4: TCA 08/2021 Patient Health Questionnaire CPT-4: DPHQ 08/2021 Mini Mental State Exam CPT-4: DMMA Annual Wellness Visit (Subsequent Visit) CPT-4: G0439 01/13/2021 Advanced Care Planning CPT-4: VACP Fall Risk Assessment SNOMED CT: 38822951 4 CPT-4: DFRA01/13/2021emmes Fany AssessmentCPT-4: DSWA12/17/2020Urinalysis, dip stickCPT-4: 151314409/24/2020Patient Health QuestionnaireCPT-4: DPHQ 08/19/2020ElectrocardiogramCPT-4: 044965505/14/2020Tobacco Assessment/Screening CPT-4: TCA01/01/2020Fall Risk AssessmentSNOMED CT: 319363254 CPT-4: DFRA01/01/2020Functional AssessmentCPT-4: DFA01/01/2020[place] Fany AssessmentCPT-4: DSWA11/28/2019Patient Health QuestionnaireCPT-4: DPHQ11/28/2019 [place] Fany AssessmentCPT-4: DSWA10/17/2019HypertensionCPT-4: HTN10/17/[address]: 545983367 CPT-4: DFRA09/19/2019Functional AssessmentCPT-4: DFA111/20/2018Urinalysis, dip stickCPT-4: 7118588Tobacco Assessment/ScreeningCPT-4: TCA05/24/2019 Patient Health QuestionnaireCPT-4: DPHQ05/24/2019AHA/REBECCA Classification AssessmentCPT-4: DAHA04/25/2019Controlled Substance ReportCPT-4: CTRSU04/25/2019 Urinalysis, dip stickCPT-4: 968395903/28/2019Urinalysis, dip stickCPT-4: 84163 03/28/20195633W2J-VrhelteiyubivrkXFQ-1: 99746VgbrtcfU9N-YxgwrwzhfymltdiIGT-7: 86805 HfxgfriA7B-ChsfocrrhigvfalPXY-2: 57040RkhuzezC9V-ObhcxagjhnuzhppXNJ-0: 68186 RegbhoiG9J-TuidgkrapxtvyvmSZA-2: 34627MftoosaQ2S-FwsyrceeekuahyeYEZ-2: 15800 JlsalbfW1D-VndbhqbcomdjwzkUMO-8: 47520DggszzhEyjzxabuvm ReferralSNOMED CT: 858932979 CPT-4: G71Tgcjgfy Reason For Visit No Reason For Visit data Plan of Care Planned Activity Notes Codes Status Date Referral: Pending Gynecology Referral Informatio n Referral ProcessedReferral: Pending Pulmonology Referral InformationReferralProcessed Referral: Pending Psychiatry Referral InformationReferralInitiatedReferral: Pending Respiratory Services Referral InformationReferralInitiatedReferral: Pending Ophthalmology Referral InformationReferralInitiatedReferral: [facility] WPtel: [address] [place] [address] USWriter placed a call out to the patient to notify her that it has been recommended that she be seenby a urologist. Patient agreed to be seen, does not have a provider of choice and no transportationissues. Director [employer] faxed referral and clinical notes to [facility] in [place], [place] near the patient's home. Patient to [...] seen and prefers a provider in the [place] or [facility]. Director [employer] placed a call out to everyone listed in the area and the only location that was able to accept the patient's insurance was [address] [address] and spoke with Maylin. Maylin asked that the patient's referral, face sheet and visit notes be faxed to . Director [employer] faxed over requested documents. Patient appointment confirmation letter generated and mailed to her home address. Patient to call to schedule an appointment.ProcessedReferral: [facility] WPtel: [address] [place] USPatient notified that it has been advised that she be seen by Neurology. Patient agreed to be seen and prefers to be seen by a provider in the [place], [place] area. Patient denies any concerns with transportation, and prefers to schedule her own appointment. Director [employer] placed a call out to [place] [facility] and spoke with [...]
--- OUTSIDE RECORDS SUMMARY | 2023-12-07 02:17 | XMS_ITS | CCD ---
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 [facility] Styl[employer] Grinder Name Role Phone Palomo KING, Anna Primary Care Provider Unav ailable Unavailable Chronic Care Management Unavaila ble Summary Purpose DataExchange Insurance Providers Payer name Policy type / Coverage type Covered constitution party ID Effective Begin Date Effective End Date [employer] [facility] [id number] Unknown Unknown Family history Mother Diagnosis Age [...] 05/31/2018 Education level Unknown Some High School 10th05/31/20188747IirctioseaVtjrzfbPyiqpywrbm59/29/2018Tobacco historySNOMED CT: 222761864Vnx never smoked or chewed sbiecen0105/31/2018Alcohol historySNOMED CT: 363126451Nxlpv drinks qgdlvry1305/31/2018Has the patient ever used illegal drugs? UnknownHas never used illegal drugs05/31/2018DNR Order/ Advanced Directive UnknownFull Code05/31/2018 Allergies, Adverse Reactions, Alerts Substance Reaction Codes Entered Date Inactivated Date Status OxyContin itch, RxNorm: 982198 01/13/2021 No Inactive Da te Active *No known food allergies Qrcdyhf3509/06/2018No Inactive DateActiveMethylprednisolonehivesRxNorm: 6902 09/06/2018No Inactive DateActive Problems [...] examinationICD-10: Z01.810 ICD-9: V72.8106InactiveHeadacheICD-10: R51 ICD-9: 784.001InactiveOther prison (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ICD-10: Z79.899 ICD-9: V58.6907InactiveType 2 [...] ICD-9: XZ0.107ActiveAbnormal electrocardiogram [ECG] [EKG]ICD-10: R94.31 ICD-9: 794.3108ActiveEdema, unspecifiedICD-10: R60.9 ICD-9: 782.310ActiveLong term (current) use of non-steroidal anti- inflammatories (NSAID)ICD-10: Z79.1 ICD-9: V58.6409Active Medications Medication Codes Instructions Start Date Stop Date Status Fill Instructions Heartburn Relief (famotidine) 10 mg tablet RxNorm: 581732 Take 1 Tablet(s) Oral QAM 08/07/20 21 2020 Inactive levothyroxine 50 mcg tablet RxNorm: 427924 Take 1 Tablet(s) Oral QD 08/07/20 21 2020 Inactive metformin 1,000 mg tablet RxNorm: 666171 1 Tablet(s) Oral two times a day 07/16/20 21 2021 Inactive Singulair 10 mg tablet RxNorm: 068083 TAKE (1) TABLET BY MOUTH DAILY 07/16/20 21 2020 Inactive lisinopril 2.5 mg tablet RxNorm: 793966 Take 1 Tablet(s) Oral every day 07/11/20 21 2020 Inactive hydrochlorothiazide 25 mg tablet RxNorm: 414689 Take 1 Tablet(s) Oral every day 06/12/20 21 2020 Inactive ondansetron 4 mg disintegrating tablet RxNorm: 496180 1 Tablet(s) Oral two times a day 06/10/20 21 2020 Inactive Sudafed 12 Hour 120 mg tablet,extended release RxNorm: 3092326 TAKE 1 TABLET BY MOUTH EVERY 12 HOURS NEEDED 06/01/20 21 2021 Inactive Heartburn Relief (famotidine) 10 mg tablet RxNorm: 850280 Take 1 Tablet(s) Oral every morning 05/07/20 21 2020 Inactive omeprazole 20 mg capsule,delayed release RxNorm: 460734 1 Capsule(s) Oral every evening 04/03/20 21 2020 Inactive sertraline 100 mg tablet RxNorm: 299281 2 Tablet(s) Oral every day 03/13/20 21 2020 Inactive levothyroxine 50 mcg tablet RxNorm: 278140 TAKE (1) TABLET BY MOUTH DAILY 02/04/20 21 2020 Inactive metformin 500 mg tablet RxNorm: 728106 1 Tablet(s) Oral two times a day take with 500mg to equal 1000mg 01/14/20 21 2020 Inactive gabapentin 300 mg capsule RxNorm: 562896 TAKE 1 CAPSULE BY MOUTH THREE TIMES A DAY 01/14/20 21 2020 Inactive lisinopril 2.5 mg tablet RxNorm: 547330 TAKE 1 TABLET BY MOUTH DAILY 01/06/20 21 2020 Inactive gabapentin 300 mg capsule RxNorm: 201748 TAKE 1 CAPSULE BY MOUTH THREE TIMES A DAY 01/06/20 21 2020 Inactive Singulair 10 mg tablet RxNorm: 069260 TAKE (1) TABLET BY MOUTH DAILY 01/06/20 21 2020 Inactive metformin 1,000 mg tablet RxNorm: 981541 1 Tablet(s) Oral two times a day 01/06/20 21 2020 Inactive atorvastatin 40 mg tablet RxNorm: 757259 1 Tablet(s) Oral every day 12/06/19 21 2020 Inactive omeprazole 20 mg capsule,delayed release RxNorm: 116560 1 Capsule(s) Oral every evening 11/24/19 21 2020 Inactive famotidine 10 mg tablet RxNorm: 349229 1 Tablet(s) Oral every morning 11/24/19 21 2020 Inactive Alcohol Prep Pads RxNorm: 319523 USE EACH MORNING 10/14/19 21 2020 Inactive omeprazole 20 mg capsule,delayed release RxNorm: 507714 1 Capsule(s) Oral two times a day 10/13/19 21 2021 Inactive omeprazole 20 mg capsule,delayed release RxNorm: 918912 TAKE 1 CAPSULE BY MOUTH EVERY DAY 10/08/19 21 2021 Inactive Macrobid 100 mg capsule RxNorm: 609059 1 Capsule(s) Oral every 12 hours with food 10/01/20 20 2020 Inactive omeprazole 20 mg capsule,delayed release RxNorm: 814768 1 Capsule(s) Oral two times a day 09/24/20 20 2021 Inactive metformin 1,000 mg tablet RxNorm: 581568 1 Tablet(s) Oral two times a day 08/19/20 20 2020 Inactive start on September 11, 2020 metformin 500 mg tablet RxNorm: 734878 1 Tablet(s) Oral two times a day take with 500mg to equal 1000mg 08/19/20 20 2019 Inactive gabapentin 300 mg capsule RxNorm: 942544 TAKE 1 CAPSULE BY MOUTH THREE TIMES DAILY 07/11/20 20 2020 Inactive cetirizine 10 mg tablet RxNorm: 3017140 TAKE (1) TABLET BY MOUTH DAILY 07/11/20 20 2020 Inactive metformin 500 mg tablet RxNorm: 181102 1 Tablet(s) Oral two times a day 07/08/20 20 2019 Inactive loperamide 2 mg tablet RxNorm: 627277 1 Tablet(s) Oral as needed take one tablet after each loose stool, maximum of 8 tablets in 24 hours 06/24/202021 Inactive Sudafed 12 Hour 120 mg tablet,extended release RxNorm: 6314627 TAKE 1 TABLET BY MOUTH EVERY 12 HOURS NEEDED 06/11/20 20 2019 Inactive hydrochlorothiazide 25 mg tablet RxNorm: 358316 TAKE (1) TABLET BY MOUTH EVERY DAY 06/11/20 20 2019 Inactive omeprazole 20 mg capsule,delayed release RxNorm: 062817 TAKE 1 CAPSULE BY MOUTH EVERY DAY 05/14/202020 Inactive metformin 500 mg tablet RxNorm: 720162 1 Tablet(s) Oral every day 05/12/20 20 2019 Inactive True Metrix Glucose Test Strip RxNorm: 1 Test Strips Miscellaneous two times a day as needed 04/17/20 No Stop Date Active metformin 500 mg tablet RxNorm: 682813 1 Tablet(s) Oral every day 04/17/20 20 2019 Inactive diclofenac sodium 75 mg tablet,delayed release RxNorm: 875341 1 Tablet(s) PO BID 07/13/20 20 01/03/ 2022 Inactive This refill negates all other refills of this medication Sudafed 12 Hour 120 mg tablet,extended release RxNorm: 6621473 TAKE 1 TABLET BY MOUTH EVERY 12 HOURS NEEDED 03/14/20 20 2019 Inactive True Metrix Glucose Test Strip RxNorm: 1 Test Strips Miscellaneous every morning 03/13/20 20 2019 Inactive 100/container True Metrix Glucose Test Strip RxNorm: 1 Test Strips Miscellaneous QAM 02/22/20 20 2019 Inactive 100/container loperamide 2 mg tablet RxNorm: 447479 1 Tablet(s) Oral as needed take one tablet after each loose stool, maximum of 8 tablets in 24 hours 02/22/20 20 2019 Inactive cetirizine 10 mg tablet RxNorm: 4576366 1 Tablet(s) PO daily 01/17/20 20 2019 Inactive loperamide 2 mg tablet RxNorm: 503929 1 Tablet(s) Oral as needed take one tablet after each loose stool, maximum of 8 tablets in 24 hours 01/17/20 20 2019 Inactive quetiapine 100 mg tablet RxNorm: 721838 1 Tablet(s) Oral every night at bedtime 01/17/20 20 2019 Inactive levothyroxine 50 mcg tablet RxNorm: 781898 1 Tablet(s) PO daily 01/17/20 20 2020 Inactive gabapentin 300 mg capsule RxNorm: 450517 1 Capsule(s) PO TID 01/17/20 20 2019 Inactive levothyroxine 50 mcg tablet RxNorm: 239523 1 Tablet(s) PO daily 01/15/20 20 2019 Inactive lisinopril 2.5 mg tablet RxNorm: 623327 1 Tablet(s) PO daily 01/15/20 20 2020 Inactive gabapentin 300 mg capsule RxNorm: 976366 1 Capsule(s) PO TID 01/15/20 20 2019 Inactive cetirizine 10 mg tablet RxNorm: 4438307 1 Tablet(s) PO daily 01/15/20 20 2019 Inactive Singulair 10 mg tablet RxNorm: 880025 1 Tablet(s) PO daily 01/15/20 20 2020 Inactive gentamicin 0.3 % eye drops RxNorm: 658051 1 Drop(s) ophthalmic (eye) four times a day 12/29/19 20 2019 Inactive gentamicin 0.3 % eye drops RxNorm: 485739 1 Drop(s) ophthalmic (eye) four times a day 12/29/19 20 2019 Inactive gentamicin 0.3 % eye drops RxNorm: 272804 1 Drop(s) ophthalmic (eye) four times a day 12/29/19 20 2019 Inactive hydrochlorothiazide 25 mg tablet RxNorm: 772125 1 Tablet(s) Oral every day 12/21/19 20 2019 Inactive Sudafed 12 Hour 120 mg tablet,extended release RxNorm: 5246600 TAKE (1) TABLET BY MOUTH EVERY 12 HOURS NEEDED 12/21/19 20 2019 Inactive loperamide 2 mg tablet RxNorm: 963882 1 Tablet(s) Oral as needed take one tablet after each loose stool, maximum of 8 tablets in 24 hours 12/11/19 20 2019 Inactive loperamide 2 mg tablet RxNorm: 126057 1 Tablet(s) Oral as needed take one tablet after each loose stool, maximum of 8 tablets in 24 hours 12/11/19 20 2019 Inactive atorvastatin 40 mg tablet RxNorm: 884816 1 Tablet(s) Oral every day 11/29/19 20 2020 Inactive quetiapine 100 mg tablet RxNorm: 848350 1 Tablet(s) Oral every night at bedtime 11/28/19 20 2019 Inactive sertraline 100 mg tablet RxNorm: 503943 1 Tablet(s) Oral 11/28/19 20 2019 Inactive omeprazole 20 mg capsule,delayed release RxNorm: 352992 1 Capsule(s) Oral every day 11/20/19 20 2019 Inactive amoxicillin 250 mg capsule RxNorm: 349690 1 Capsule(s) Oral three times a day 11/07/19 20 2019 Inactive multivitamin with iron-mineral tablet RxNorm: 1 Tablet(s) Oral every day 10/29/19 20 2021 Inactive cetirizine 10 mg tablet RxNorm: 5042205 1 Tablet(s) PO daily 10/20/19 20 2019 Inactive This refill negates all other refills of this medication. Please do not auto refill Singulair 10 mg tablet RxNorm: 653483 1 Tablet(s) PO daily 10/20/19 20 2019 Inactive This refill negates all other refills of this medication gabapentin 300 mg capsule RxNorm: 974326 1 Capsule(s) PO TID 10/20/19 20 2019 Inactive lisinopril 2.5 mg tablet RxNorm: 540075 1 Tablet(s) PO daily 10/20/19 20 2019 Inactive levothyroxine 50 mcg tablet RxNorm: 876341 1 Tablet(s) PO daily 10/20/19 20 2019 Inactive This refill negates all other refills of this medication fenugreek seed extract 500 mg capsule RxNorm: 1 Capsule(s) Oral three times a day 10/17/19 20 2021 Inactive hydrochlorothiazide 25 mg tablet RxNorm: 074762 1 Tablet(s) Oral every day 10/17/19 20 2019 Inactive Alcohol Prep Pads RxNorm: 333116 1 Patch TOP QAM 10/16/19 20 2020 Inactive loperamide 2 mg tablet RxNorm: 541475 1 Tablet(s) Oral as needed take one [...] 2019 Inactive hydrochlorothiazide 25 mg tablet RxNorm: 848919 1 Tablet(s) Oral every day 09/19/20 19 2019 Inactive Sudafed 12 Hour 120 mg tablet,extended release RxNorm: 4885806 1 Tablet(s) Oral every 12 hours as needed 09/11/20 19 2018 Inactive omeprazole 20 mg capsule,delayed release RxNorm: 334786 1 Capsule(s) Oral every day 09/07/20 19 2019 Inactive Sudafed 12 Hour 120 mg tablet,extended release RxNorm: 5502870 1 Tablet(s) Oral every 12 hours as needed 09/04/20 19 2018 Inactive pantoprazole 40 mg tablet,delayed release RxNorm: 905616 1 Tablet(s) Oral every day 08/24/20 19 2018 Inactive discontinue any other H2Blkr. and PPI albuterol sulfate 2.5 mg/3 mL (0.083 %) solution for nebulization RxNorm: 402892 1 Vial Inhalation every four hours as needed as needed for dyspnea 08/17/202019 Inactive 60/box. This refill negates all other refills of this medication. Please do not fill early. Please do not auto refill. Symbicort 160 mcg-4.5 mcg/actuation HFA aerosol inhaler RxNorm: 6972853 2 Puff(s) INH BID 08/17/20 19 No Stop Date Active Alcohol Prep Pads RxNorm: 182755 1 Patch TOP QAM 08/17/20 19 2019 Inactive Ventolin HFA 90 mcg/actuation aerosol inhaler RxNorm: 679548 2 Puff(s) INH QID 08/09/20 19 2019 Inactive Please do not fill early. Please do not auto refill. This refill negates all other refills of this medication True Metrix Glucose Test Strip RxNorm: 1 Test Strips Miscellaneous QAM 08/09/20 19 2019 Inactive 100/container atorvastatin 40 mg tablet RxNorm: 303221 1 Tablet(s) Oral every day 07/04/20 19 2019 Inactive levmetamfetamine 50 mg nasal inhaler RxNorm: 1 Unit(s) NASAL Q3-4H Do not use more than every 3 hours or 8 times/24hours 06/26/20 19 2021 Inactive Please do not auto refill. This refill negates all other refills of this medication buspirone 7.5 mg tablet RxNorm: 788964 1 Tablet(s) PO BID 06/26/20 19 2020 Inactive This refill negates all other refills of this medication hydrochlorothiazide 12.5 mg tablet RxNorm: 657221 1 Tablet(s) PO QAM 06/26/20 19 2019 Inactive Ventolin HFA 90 mcg/actuation aerosol inhaler RxNorm: 135636 2 Puff(s) INH QID 06/26/20 19 2018 Inactive Please do not fill early. Please do not auto refill. This refill negates all other refills of this medication Singulair 10 mg tablet RxNorm: 317059 1 Tablet(s) PO daily 06/26/20 19 2019 Inactive This refill negates all other refills of this medication cetirizine 10 mg tablet RxNorm: 6613291 1 Tablet(s) PO daily 06/26/20 19 2019 Inactive This refill negates all other refills of this medication. Please do not auto refill levothyroxine 50 mcg tablet RxNorm: 236483 1 Tablet(s) PO daily 06/26/20 19 2019 Inactive This refill negates all other refills of this medication diclofenac sodium 75 mg tablet,delayed release RxNorm: 245121 1 Tablet(s) PO BID 06/26/20 19 2019 Inactive This refill negates all other refills of this medication ranitidine 150 mg tablet RxNorm: 503906 1 Tablet(s) PO BID 06/26/20 19 2018 Inactive This refill negates all other refills of this medication Calcium 600-D3 Plus (mag-zinc) 600 mg calcium-800 unit-50 mg tablet RxNorm: 1 Tablet(s) PO daily take an additonal tablet for itching. 06/26/20 19 2018 Inactive This refill negates all other refills of this medication albuterol sulfate 2.5 mg/3 mL (0.083 %) solution for nebulization RxNorm: 610766 1 Vial INH QID 06/26/20 19 2018 Inactive 60/box. This refill negates all other refills of this medication. Please do not fill early. Please do not auto refill. lisinopril 2.5 mg tablet RxNorm: 536812 1 Tablet(s) PO daily 06/21/20 19 2019 Inactive gabapentin 300 mg capsule RxNorm: 651899 1 Capsule(s) PO TID 06/21/20 19 2019 Inactive atorvastatin 20 mg tablet RxNorm: 979659 1 Tablet(s) PO QHS 06/07/20 19 2018 Inactive This refill negates all other refills of this medication TRUEplus Lancets 30 gauge RxNorm: 1 Lancets Miscellaneous QAM 05/29/20 19 2018 Inactive 100/box gabapentin 300 mg capsule RxNorm: 560389 1 Capsule(s) PO TID 05/03/20 19 2018 Inactive [place] Complete (iron) 18 mg iron chewable tablet RxNorm: 1 Tablet(s) PO daily 04/04/20 19 2021 Inactive This refill negates all other refills of this medication gabapentin 300 mg capsule RxNorm: 679801 1 Capsule(s) PO TID as needed 02/01/20 19 2018 Inactive True Metrix Glucose Test Strip RxNorm: 1 Test Strips Miscellaneous QAM 02/01/20 19 2018 Inactive 100/container Alcohol Prep Pads RxNorm: 795777 1 Patch TOP QA 02/01/202018 Inactive TRUEplus Lancets 30 gauge RxNorm: 1 Lancets Miscellaneous QAM 02/01/20 19 2018 Inactive 100/box lisinopril 2.5 mg tablet RxNorm: 965824 1 Tablet(s) PO daily 12/28/19 19 2018 Inactive ranitidine 150 mg tablet RxNorm: 408917 1 Tablet(s) PO BID 10/21/19 19 2018 Inactive This refill negates all other refills of this medication albuterol sulfate 2.5 mg/3 mL (0.083 %) solution for nebulization RxNorm: 900362 1 Vial INH QID 10/21/19 19 2018 [...] this medication gabapentin 300 mg capsule RxNorm: 919289 1 Capsule(s) PO TID as needed 10/21/19 19 2018 Inactive atorvastatin 20 mg tablet RxNorm: 366753 1 Tablet(s) PO QHS 10/21/192018 Inactive This refill negates all other refills of this medication trazodone 50 mg tablet RxNorm: 129256 1 Tablet(s) PO QHS 10/21/192018 Inactive This refill negates all other refills of this medication Ventolin HFA 90 mcg/actuation aerosol inhaler RxNorm: 889142 2 Puff(s) INH QID 10/21/192018 Inactive Please do not fill early. Please do not auto refill. This refill negates all other refills of this medication Calcium 600-D3 Plus 600 mg calcium-800 unit-50 mg tablet RxNorm: 1 Tablet(s) PO daily take an additonal tablet for itching. 10/21/192018 Inactive This refill negates all other refills of this medication Singulair 10 mg tablet RxNorm: 961649 1 Tablet(s) PO daily 10/21/192018 Inactive This refill negates all other refills of this medication buspirone 7.5 mg tablet RxNorm: 383253 1 Tablet(s) PO BID 10/21/192018 Inactive This refill negates all other refills of this medication diclofenac sodium 75 mg tablet,delayed release RxNorm: 532428 1 Tablet(s) PO BID 10/21/19 19 2018 Inactive This refill negates all other refills of this medication hydrochlorothiazide 12.5 mg tablet RxNorm: 037503 1 Tablet(s) PO QAM 10/21/19 19 2018 Inactive metoprolol succinate ER 50 mg tablet,extended release 24 hr RxNorm: 573018 1 Tablet(s) PO daily 10/21/19 19 2018 Inactive This refill negates all other refills of this medication levothyroxine 50 mcg tablet RxNorm: 548515 1 Tablet(s) PO daily 10/21/19 19 2018 Inactive This refill negates all other refills of this medication cetirizine 10 mg tablet RxNorm: 4978566 1 Tablet(s) PO daily 10/21/192018 Inactive This refill negates all other refills of this medication. Please do not auto refill [place] Complete (iron) 18 mg iron chewable tablet RxNorm: 1 Tablet(s) PO daily 10/21/19 19 2018 Inactive This refill negates all other refills of this medication buspirone 7.5 mg tablet RxNorm: 613310 1 Tablet(s) PO BID 10/12/19 19 2018 Inactive cetirizine 10 mg tablet RxNorm: 4384487 1 Tablet(s) PO daily 09/28/20 18 2018 Inactive Guaiasorb DM 10 mg-100 mg/5 mL oral liquid RxNorm: 509981 10 Milliliter(s) PO As needed every 4 hr 09/24/202018 Inactive Vicks Vaporub 4.7 %-1.2 %-2.6 % topical ointment RxNorm: 2966712 1 Application TOP TID 09/24/20 18 2018 Inactive levmetamfetamine 50 mg nasal inhaler RxNorm: 1 Unit(s) NASAL Q3-4H 09/24/20 18 2017 Inactive sertraline 50 mg tablet RxNorm: 053359 1 Tablet(s) PO daily 09/09/20 18 2018 Inactive Please note dose trazodone 50 mg tablet RxNorm: 196325 1 Tablet(s) PO QHS 09/06/20 18 2018 Inactive sertraline 50 mg tablet RxNorm: 809497 1 Tablet(s) PO daily 09/06/20 18 2017 Inactive amoxicillin 500 mg tablet RxNorm: 083595 1 Tablet(s) PO Q12H 08/31/20 18 2017 Inactive albuterol sulfate 2.5 mg/3 mL (0.083 %) solution for nebulization RxNorm: 739374 1 Vial INH QID 08/10/20 18 2018 Inactive 60/box. Please do not fill early. Please do not auto refill. Prozac 10 mg capsule RxNorm: 897504 1 Capsule(s) PO daily 08/09/20 18 2017 Inactive buspirone 7.5 mg tablet RxNorm: 468619 1 Tablet(s) PO BID 08/09/20 18 2018 Inactive gabapentin 300 mg capsule RxNorm: 017368 1 Capsule(s) PO TID as needed 08/01/20 18 2018 Inactive hydrochlorothiazide 12.5 mg tablet RxNorm: 814808 1 Tablet(s) PO QAM 08/01/20 18 2018 Inactive ranitidine 150 mg tablet RxNorm: 067190 1 Tablet(s) PO BID 08/01/20 18 2018 Inactive Macrobid 100 mg capsule RxNorm: 377349 1 Capsule(s) PO Q12H 06/21/20 18 2017 Inactive Singulair 10 mg tablet RxNorm: 541214 1 Tablet(s) PO daily 06/14/20 18 2018 Inactive Ventolin HFA 90 mcg/actuation aerosol inhaler RxNorm: 6747595 2 Puff(s) INH QID 06/14/20 18 2018 Inactive Singulair 10 mg tablet RxNorm: 546426 1 Tablet(s) PO daily 06/14/20 18 2017 Inactive buspirone 7.5 mg tablet RxNorm: 441556 1 Tablet(s) PO BID 06/14/20 18 2017 Inactive Prozac 10 mg capsule RxNorm: 267778 1 Capsule(s) PO daily 06/14/20 18 2017 Inactive Neilmed Pediatric Sinus Rinse Refill packet RxNorm: 1 Unit Dose NASAL PRN 05/31/20 18 2021 Inactive diclofenac sodium 75 mg tablet,delayed release RxNorm: 807109 1 Tablet(s) PO BID 05/31/20 18 2017 Inactive lisinopril 2.5 mg tablet RxNorm: 602987 1 Tablet(s) PO daily 05/31/20 18 2017 Inactive metoprolol succinate ER 50 mg tablet,extended release 24 hr RxNorm: 599585 1 Tablet(s) PO daily 05/31/20 18 2017 Inactive levothyroxine 50 mcg tablet RxNorm: 746623 1 Tablet(s) PO daily 05/31/20 18 2017 Inactive TRUEplus Lancets 30 gauge RxNorm: 1 Lancets Miscellaneous QAM 05/31/20 18 2017 Inactive 100/box Ventolin HFA 90 mcg/actuation aerosol inhaler RxNorm: 291016 2 Puff(s) INH QID 05/31/20 18 2017 Inactive Aleve 220 mg capsule RxNorm: 4707493 1 Capsule(s) PO BID 05/31/20 18 2018 Inactive ranitidine 150 mg tablet RxNorm: 100744 1 Tablet(s) PO BID 05/31/20 18 2017 Inactive gabapentin 300 mg capsule RxNorm: 508021 1 Capsule(s) PO TID as needed 05/31/20 18 2017 Inactive atorvastatin 20 mg tablet RxNorm: 081963 1 Tablet(s) PO QHS 05/31/20 18 2017 Inactive True Metrix Glucose Test Strip RxNorm: 1 Test Strips Miscellaneous QAM 05/31/20 18 2017 Inactive 50/container Calcium 600-D3 Plus 600 mg calcium-800 unit-50 mg tablet RxNorm: 1 Tablet(s) PO daily take an additonal tablet for itching. 05/31/20 18 2017 Inactive hydrochlorothiazide 12.5 mg tablet RxNorm: 156246 1 Tablet(s) PO QAM 05/31/20 18 2017 Inactive [place] Complete (iron) 18 mg iron chewable tablet RxNorm: 1 Tablet(s) PO daily 05/31/20 18 2017 Inactive d-mannose oral powder RxNorm: PO 18 2021 Inactive True Metrix Glucose Meter RxNorm: miscellaneous 08/17/20 19 2018 Inactive sertraline 50 mg tablet RxNorm: 360406 1 Tablet(s) PO daily 11/28/19 20 2019 Inactive loperamide 2 mg tablet RxNorm: 873923 oral 09/29/20 19 2018 Inactive Symbicort 160 mcg-4.5 mcg/actuation HFA aerosol inhaler RxNorm: 1719146 2 Puff(s) INH BID 08/17/20 19 2018 [...] VACP 1 Fall Risk Assessment SNOMED CT: 46881071 4 CPT-4: DFRA01/13/2021emmes Fany AssessmentCPT-4: DSWA12/17/2020Urinalysis, dip stickCPT-4: 9835564Patient Health QuestionnaireCPT-4: DPHQ 08/19/2020ElectrocardiogramCPT-4: 2333618Tobacco Assessment/Screening CPT-4: TCA01/01/2020Fall Risk AssessmentSNOMED CT: 190098337 CPT-4: DFRA01/01/2020Functional AssessmentCPT-4: DFA01/01/2020[place] Fany AssessmentCPT-4: DSWA11/28/2019Patient Health QuestionnaireCPT-4: DPHQ11/28/2019 [place] Fany AssessmentCPT-4: DSWA10/17/2019HypertensionCPT-4: HTN10/17/[address]: 296102492 CPT-4: DFRA09/19/2019Functional AssessmentCPT-4: DFA111/20/2018Urinalysis, dip stickCPT-4: 7339951Tobacco Assessment/ScreeningCPT-4: TCA05/24/2019 Patient Health QuestionnaireCPT-4: DPHQ05/24/2019AHA/REBECCA Classification AssessmentCPT-4: DAHA04/25/2019Controlled Substance ReportCPT-4: CTRSU04/25/2019 Urinalysis, dip stickCPT-4: 8133149Urinalysis, dip stickCPT-4: 20086 03/28/20199000M7X-CwttgaahujxgwidHUR-5: 66858OdzgmsjD8J-ZjnpsayubemzizjGPJ-7: 47236 NrvjglkF4D-QwcjphgbnepuizxOYG-3: 75876JhvhtdpF0K-KncvmpdmygvjglrXEA-0: 23846 KafiyveX7L-DzygjqxhucywbjeVUB-8: 51185TnsafzqJ0Z-IrwebbqwydnxdatXIQ-4: 78929 GjviqyaO6L-HncpvbcroynfbvrVQC-6: 09050PqhsaocMdumweajmh ReferralSNOMED CT: 929123742 CPT-4: B52Exgkrwf Reason For Visit No Reason For Visit data Plan of Care Planned Activity Notes Codes Status Date Referral: Pending Gynecology Referral Informatio n Referral ProcessedReferral: Pending Pulmonology Referral InformationReferralProcessed Referral: Pending Psychiatry Referral InformationReferralInitiatedReferral: Pending Respiratory Services Referral InformationReferralInitiatedReferral: Pending Ophthalmology Referral InformationReferralInitiatedReferral: [facility] WPtel: [address] [place] [address] [address] [id number] USWriter placed a call out to the patient to notify her that it has been recommended that she be seenby a urologist. Patient agreed to be seen, does not have a provider of choice and no transportationissues. Property Worker faxed referral and clinical notes to [facility] in [place], [place] near the patient's home. Patient to [...] seen and prefers a provider in the [employer] or [place] area. Property Worker placed a call out to everyone listed in the area and the only location that was able to accept the patient's insurance was [address] [id number] and spoke with Maylin. Maylin asked that the patient's referral, face sheet and visit notes be faxed to . Property Worker faxed over requested documents. Patient appointment confirmation letter generated and mailed to her home address. Patient to call to schedule an appointment.ProcessedReferral: [facility] WPtel: [address] [place] [address] Suite [facility] [id number] USPatient notified that it has been advised that she be seen by Neurology. Patient agreed to be seen and prefers to be seen by a provider in the [place], [place] area. Patient denies any concerns with transportation, and prefers to schedule her own appointment. Property Worker placed [phone] [email or web address] [id number]
--- OUTSIDE RECORDS SUMMARY | 2023-12-07 02:17 | XMS_ITS | CCD ---
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 Clip And Hanger Attacher Name Role Phone Palomo KING, Anna Primary Care Provider Unav ailable Unavailable Chronic Care Management Unavaila ble Summary Purpose DataExchange Insurance Providers Payer name Policy type / Coverage type Covered democrat ID Effective Begin Date Effective End Date [employer] [facility] [id number] Unknown Unknown Family history Mother Diagnosis Age [...] 05/31/2018 Education level Unknown Some High School 10th05/31/20181762NcinlywoqwLtvgkxyDxsoiovsge75/29/2018Tobacco historySNOMED CT: 762521183Oqg never smoked or chewed arpsegm8505/31/2018Alcohol historySNOMED CT: 280743629Eiyso drinks unzqkrq3405/31/2018Has the patient ever used illegal drugs? UnknownHas never used illegal drugs05/31/2018DNR Order/ Advanced Directive UnknownFull Code05/31/2018 Allergies, Adverse Reactions, Alerts Substance Reaction Codes Entered Date Inactivated Date Status OxyContin itch, RxNorm: 896908 01/13/2021 No Inactive Da te Active *No known food allergies Mquyjkk3709/06/2018No Inactive DateActiveMethylprednisolonehivesRxNorm: 6902 09/06/2018No Inactive DateActive Problems [...] examinationICD-10: Z01.810 ICD-9: V72.8106InactiveHeadacheICD-10: R51 ICD-9: 784.001InactiveOther usp (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ICD-10: Z79.899 ICD-9: V58.6907InactiveType 2 [...] Fill Instructions Singulair 10 mg tablet RxNorm: 793905 TAKE (1) TABLET BY MOUTH DAILY 07/16/20 21 2020 Inactive metformin 1,000 mg tablet RxNorm: 874825 1 Tablet(s) Oral two times a day 07/16/20 21 2021 Inactive lisinopril 2.5 mg tablet RxNorm: 905415 Take 1 Tablet(s) Oral every day 07/11/20 21 2020 Inactive hydrochlorothiazide 25 mg tablet RxNorm: 950052 Take 1 Tablet(s) Oral every day 06/12/20 21 2020 Inactive ondansetron 4 mg disintegrating tablet RxNorm: 700643 1 Tablet(s) Oral two times a day 06/10/20 21 2020 Inactive Sudafed 12 Hour 120 mg tablet,extended release RxNorm: 4554889 TAKE 1 TABLET BY MOUTH EVERY 12 HOURS NEEDED 06/01/20 21 2021 Inactive Heartburn Relief (famotidine) 10 mg tablet RxNorm: 639924 Take 1 Tablet(s) Oral every morning 05/07/20 21 2020 Inactive omeprazole 20 mg capsule,delayed release RxNorm: 977322 1 Capsule(s) Oral every evening 04/03/20 21 2020 Inactive sertraline 100 mg tablet RxNorm: 488648 2 Tablet(s) Oral every day 03/13/20 21 2020 Inactive levothyroxine 50 mcg tablet RxNorm: 016469 TAKE (1) TABLET BY MOUTH DAILY 02/04/20 21 2020 Inactive metformin 500 mg tablet RxNorm: 746416 1 Tablet(s) Oral two times a day take with 500mg to equal 1000mg 01/14/2023 03/10/ 2021 Inactive gabapentin 300 mg capsule RxNorm: 498855 TAKE 1 CAPSULE BY MOUTH THREE TIMES A DAY 01/14/20 21 2020 Inactive lisinopril 2.5 mg tablet RxNorm: 504902 TAKE 1 TABLET BY MOUTH DAILY 01/06/20 21 2020 Inactive gabapentin 300 mg capsule RxNorm: 878650 TAKE 1 CAPSULE BY MOUTH THREE TIMES A DAY 01/06/20 21 2020 Inactive Singulair 10 mg tablet RxNorm: 047526 TAKE (1) TABLET BY MOUTH DAILY 01/06/20 21 2020 Inactive metformin 1,000 mg tablet RxNorm: 999493 1 Tablet(s) Oral two times a day 01/06/20 21 2020 Inactive atorvastatin 40 mg tablet RxNorm: 868423 1 Tablet(s) Oral every day 12/06/19 21 2020 Inactive omeprazole 20 mg capsule,delayed release RxNorm: 753717 1 Capsule(s) Oral every evening 11/24/19 21 2020 Inactive famotidine 10 mg tablet RxNorm: 568908 1 Tablet(s) Oral every morning 11/24/19 21 2020 Inactive Alcohol Prep Pads RxNorm: 551009 USE EACH MORNING 10/14/19 21 2020 Inactive omeprazole 20 mg capsule,delayed release RxNorm: 973994 1 Capsule(s) Oral two times a day 10/13/19 21 2021 Inactive omeprazole 20 mg capsule,delayed release RxNorm: 574905 TAKE 1 CAPSULE BY MOUTH EVERY DAY 10/08/19 21 2021 Inactive Macrobid 100 mg capsule RxNorm: 419759 1 Capsule(s) Oral every 12 hours with food 10/01/20 20 2020 Inactive omeprazole 20 mg capsule,delayed release RxNorm: 824126 1 Capsule(s) Oral two times a day 09/24/20 20 2021 Inactive metformin 1,000 mg tablet RxNorm: 999693 1 Tablet(s) Oral two times a day 08/19/20 20 2020 Inactive start on September 11, 2020 metformin 500 mg tablet RxNorm: 830836 1 Tablet(s) Oral two times a day take with 500mg to equal 1000mg 08/19/20 20 2019 Inactive gabapentin 300 mg capsule RxNorm: 363189 TAKE 1 CAPSULE BY MOUTH THREE TIMES DAILY 07/11/20 20 2020 Inactive cetirizine 10 mg tablet RxNorm: 4676063 TAKE (1) TABLET BY MOUTH DAILY 07/11/20 20 2020 Inactive metformin 500 mg tablet RxNorm: 821133 1 Tablet(s) Oral two times a day 07/08/20 20 2019 Inactive loperamide 2 mg tablet RxNorm: 238587 1 Tablet(s) Oral as needed take one tablet after each loose stool, maximum of 8 tablets in 24 hours 06/24/20 20 2021 Inactive Sudafed 12 Hour 120 mg tablet,extended release RxNorm: 7622725 TAKE 1 TABLET BY MOUTH EVERY 12 HOURS NEEDED 06/11/20 20 2019 Inactive hydrochlorothiazide 25 mg tablet RxNorm: 791568 TAKE (1) TABLET BY MOUTH EVERY DAY 06/11/20 20 2019 Inactive omeprazole 20 mg capsule,delayed release RxNorm: 623108 TAKE 1 CAPSULE BY MOUTH EVERY DAY 05/14/20 20 2020 Inactive metformin 500 mg tablet RxNorm: 014702 1 Tablet(s) Oral every day 05/12/20 20 2019 Inactive True Metrix Glucose Test Strip RxNorm: 1 Test Strips Miscellaneous two times a day as needed 04/17/20 No Stop Date Active metformin 500 mg tablet RxNorm: 782303 1 Tablet(s) Oral every day 04/17/20 20 2019 Inactive diclofenac sodium 75 mg tablet,delayed release RxNorm: 551196 1 Tablet(s) PO BID 04/14/20 20 2021 Inactive This refill negates all other refills of this medication Sudafed 12 Hour 120 mg tablet,extended release RxNorm: 1313857 TAKE 1 TABLET BY MOUTH EVERY 12 HOURS NEEDED 03/14/20 20 2019 Inactive True Metrix Glucose Test Strip RxNorm: 1 Test Strips Miscellaneous every morning 03/13/20 20 2019 Inactive 100/container True Metrix Glucose Test Strip RxNorm: 1 Test Strips Miscellaneous QAM 02/22/20 20 2019 Inactive 100/container loperamide 2 mg tablet RxNorm: 831828 1 Tablet(s) Oral as needed take one tablet after each loose stool, maximum of 8 tablets in 24 hours 02/22/20 20 2019 Inactive cetirizine 10 mg tablet RxNorm: 3608624 1 Tablet(s) PO daily 01/17/20 20 2019 Inactive loperamide 2 mg tablet RxNorm: 654074 1 Tablet(s) Oral as needed take one tablet after each loose stool, maximum of 8 tablets in 24 hours 01/17/20 20 2019 Inactive quetiapine 100 mg tablet RxNorm: 995795 1 Tablet(s) Oral every night at bedtime 01/17/20 20 2019 Inactive levothyroxine 50 mcg tablet RxNorm: 120201 1 Tablet(s) PO daily 01/17/20 20 2020 Inactive gabapentin 300 mg capsule RxNorm: 253134 1 Capsule(s) PO TID 01/17/20 20 2019 Inactive levothyroxine 50 mcg tablet RxNorm: 191195 1 Tablet(s) PO daily 01/15/20 20 2019 Inactive lisinopril 2.5 mg tablet RxNorm: 428668 1 Tablet(s) PO daily 01/15/20 20 2020 Inactive gabapentin 300 mg capsule RxNorm: 813172 1 Capsule(s) PO TID 01/15/20 20 2019 Inactive cetirizine 10 mg tablet RxNorm: 2008112 1 Tablet(s) PO daily 01/15/20 20 2019 Inactive Singulair 10 mg tablet RxNorm: 326603 1 Tablet(s) PO daily 01/15/20 20 2020 Inactive gentamicin 0.3 % eye drops RxNorm: 499142 1 Drop(s) ophthalmic (eye) four times a day 12/29/19 20 2019 Inactive gentamicin 0.3 % eye drops RxNorm: 049358 1 Drop(s) ophthalmic (eye) four times a day 12/29/19 20 2019 Inactive gentamicin 0.3 % eye drops RxNorm: 792256 1 Drop(s) ophthalmic (eye) four times a day 12/29/19 20 2019 Inactive hydrochlorothiazide 25 mg tablet RxNorm: 230757 1 Tablet(s) Oral every day 12/21/19 20 2019 Inactive Sudafed 12 Hour 120 mg tablet,extended release RxNorm: 5533881 TAKE (1) TABLET BY MOUTH EVERY 12 HOURS NEEDED 12/21/19 20 2019 Inactive loperamide 2 mg tablet RxNorm: 974005 1 Tablet(s) Oral as needed take one tablet after each loose stool, maximum of 8 tablets in 24 hours 12/11/19 20 2019 Inactive loperamide 2 mg tablet RxNorm: 690844 1 Tablet(s) Oral as needed take one tablet after each loose stool, maximum of 8 tablets in 24 hours 12/11/19 20 2019 Inactive atorvastatin 40 mg tablet RxNorm: 690261 1 Tablet(s) Oral every day 11/29/19 20 2020 Inactive quetiapine 100 mg tablet RxNorm: 809358 1 Tablet(s) Oral every night at bedtime 11/28/19 20 2019 Inactive sertraline 100 mg tablet RxNorm: 420235 1 Tablet(s) Oral 11/28/19 20 2019 Inactive omeprazole 20 mg capsule,delayed release RxNorm: 784022 1 Capsule(s) Oral every day 11/20/19 20 2019 Inactive amoxicillin 250 mg capsule RxNorm: 656766 1 Capsule(s) Oral three times a day 11/07/19 20 2019 Inactive multivitamin with iron-mineral tablet RxNorm: 1 Tablet(s) Oral every day 10/29/19 20 2021 Inactive cetirizine 10 mg tablet RxNorm: 4378180 1 Tablet(s) PO daily 10/20/19 20 2019 Inactive This refill negates all other refills of this medication. Please do not auto refill Singulair 10 mg tablet RxNorm: 070379 1 Tablet(s) PO daily 10/20/19 20 2019 Inactive This refill negates all other refills of this medication gabapentin 300 mg capsule RxNorm: 526892 1 Capsule(s) PO TID 10/20/19 20 2019 Inactive lisinopril 2.5 mg tablet RxNorm: 581265 1 Tablet(s) PO daily 10/20/19 20 2019 Inactive levothyroxine 50 mcg tablet RxNorm: 991706 1 Tablet(s) PO daily 10/20/19 20 2019 Inactive This refill negates all other refills of this medication fenugreek seed extract 500 mg capsule RxNorm: 1 Capsule(s) Oral three times a day 10/17/19 20 2021 Inactive hydrochlorothiazide 25 mg tablet RxNorm: 752318 1 Tablet(s) Oral every day 10/17/19 20 2019 Inactive Alcohol Prep Pads RxNorm: 845634 1 Patch TOP QAM 10/16/19 20 2020 Inactive loperamide 2 mg tablet RxNorm: 751399 1 Tablet(s) Oral as needed take one [...] 2019 Inactive hydrochlorothiazide 25 mg tablet RxNorm: 068788 1 Tablet(s) Oral every day 09/19/20 19 2019 Inactive Sudafed 12 Hour 120 mg tablet,extended release RxNorm: 2581099 1 Tablet(s) Oral every 12 hours as needed 09/11/20 19 2018 Inactive omeprazole 20 mg capsule,delayed release RxNorm: 621391 1 Capsule(s) Oral every day 09/07/20 19 2019 Inactive Sudafed 12 Hour 120 mg tablet,extended release RxNorm: 6757526 1 Tablet(s) Oral every 12 hours as needed 09/04/20 19 2018 Inactive pantoprazole 40 mg tablet,delayed release RxNorm: 770610 1 Tablet(s) Oral every day 08/24/20 19 2018 Inactive discontinue any other H2Blkr. and PPI albuterol sulfate 2.5 mg/3 mL (0.083 %) solution for nebulization RxNorm: 423426 1 Vial Inhalation every four hours as needed as needed for dyspnea 08/17/20 19 2019 Inactive 60/box. This refill negates all other refills of this medication. Please do not fill early. Please do not auto refill. Symbicort 160 mcg-4.5 mcg/actuation HFA aerosol inhaler RxNorm: 3675626 2 Puff(s) INH BID 08/17/20 19 No Stop Date Active Alcohol Prep Pads RxNorm: 689831 1 Patch TOP QAM 08/17/20 19 2019 Inactive Ventolin HFA 90 mcg/actuation aerosol inhaler RxNorm: 478943 2 Puff(s) INH QID 08/09/20 19 2019 Inactive Please do not fill early. Please do not auto refill. This refill negates all other refills of this medication True Metrix Glucose Test Strip RxNorm: 1 Test Strips Miscellaneous QAM 08/09/20 19 2019 Inactive 100/container atorvastatin 40 mg tablet RxNorm: 224616 1 Tablet(s) Oral every day 07/04/20 19 2019 Inactive levmetamfetamine 50 mg nasal inhaler RxNorm: 1 Unit(s) NASAL Q3-4H Do not use more than every 3 hours or 8 times/24hours 06/26/20 19 2021 Inactive Please do not auto refill. This refill negates all other refills of this medication buspirone 7.5 mg tablet RxNorm: 604181 1 Tablet(s) PO BID 06/26/20 19 2020 Inactive This refill negates all other refills of this medication hydrochlorothiazide 12.5 mg tablet RxNorm: 235082 1 Tablet(s) PO QAM 06/26/20 19 2019 Inactive Ventolin HFA 90 mcg/actuation aerosol inhaler RxNorm: 452239 2 Puff(s) INH QID 06/26/20 19 2018 Inactive Please do not fill early. Please do not auto refill. This refill negates all other refills of this medication Singulair 10 mg tablet RxNorm: 658753 1 Tablet(s) PO daily 06/26/20 19 2019 Inactive This refill negates all other refills of this medication cetirizine 10 mg tablet RxNorm: 5290863 1 Tablet(s) PO daily 06/26/20 19 2019 Inactive This refill negates all other refills of this medication. Please do not auto refill levothyroxine 50 mcg tablet RxNorm: 208366 1 Tablet(s) PO daily 06/26/20 19 2019 Inactive This refill negates all other refills of this medication diclofenac sodium 75 mg tablet,delayed release RxNorm: 158483 1 Tablet(s) PO BID 06/26/20 19 2019 Inactive This refill negates all other refills of this medication ranitidine 150 mg tablet RxNorm: 847613 1 Tablet(s) PO BID 06/26/20 19 2018 Inactive This refill negates all other refills of this medication Calcium 600-D3 Plus (mag-zinc) 600 mg calcium-800 unit-50 mg tablet RxNorm: 1 Tablet(s) PO daily take an additonal tablet for itching. 06/26/20 19 2018 Inactive This refill negates all other refills of this medication albuterol sulfate 2.5 mg/3 mL (0.083 %) solution for nebulization RxNorm: 935673 1 Vial INH QID 06/26/20 19 2018 Inactive 60/box. This refill negates all other refills of this medication. Please do not fill early. Please do not auto refill. lisinopril 2.5 mg tablet RxNorm: 224172 1 Tablet(s) PO daily 06/21/20 19 2019 Inactive gabapentin 300 mg capsule RxNorm: 175945 1 Capsule(s) PO TID 06/21/20 19 2019 Inactive atorvastatin 20 mg tablet RxNorm: 151173 1 Tablet(s) PO QHS 06/07/20 19 2018 Inactive This refill negates all other refills of this medication TRUEplus Lancets 30 gauge RxNorm: 1 Lancets Miscellaneous QAM 05/29/20 19 2018 Inactive 100/box gabapentin 300 mg capsule RxNorm: 681497 1 Capsule(s) PO TID 05/03/20 19 2018 Inactive Flintstones Complete (iron) 18 mg iron chewable tablet RxNorm: 1 Tablet(s) PO daily 04/04/202021 Inactive This refill negates all other refills of this medication gabapentin 300 mg capsule RxNorm: 284661 1 Capsule(s) PO TID as needed 02/01/202018 Inactive True Metrix Glucose Test Strip RxNorm: 1 Test Strips Miscellaneous QAM 02/01/20 19 2018 Inactive 100/container Alcohol Prep Pads RxNorm: 244313 1 Patch TOP QAM 02/01/202018 Inactive TRUEplus Lancets 30 gauge RxNorm: 1 Lancets Miscellaneous QAM 02/01/20 19 2018 Inactive 100/box lisinopril 2.5 mg tablet RxNorm: 908396 1 Tablet(s) PO daily 12/28/192018 Inactive ranitidine 150 mg tablet RxNorm: 317661 1 Tablet(s) PO BID 10/21/192018 Inactive This refill negates all other refills of this medication albuterol sulfate 2.5 mg/3 mL (0.083 %) solution for nebulization RxNorm: 141228 1 Vial INH QID 10/21/19 19 2018 [...] this medication gabapentin 300 mg capsule RxNorm: 766327 1 Capsule(s) PO TID as needed 10/21/19 19 2018 Inactive atorvastatin 20 mg tablet RxNorm: 636373 1 Tablet(s) PO QHS 10/21/19 19 2018 Inactive This refill negates all other refills of this medication trazodone 50 mg tablet RxNorm: 383404 1 Tablet(s) PO QHS 10/21/19 19 2018 Inactive This refill negates all other refills of this medication Ventolin HFA 90 mcg/actuation aerosol inhaler RxNorm: 812292 2 Puff(s) INH QID 10/21/192018 Inactive Please do not fill early. Please do not auto refill. This refill negates all other refills of this medication Calcium 600-D3 Plus 600 mg calcium-800 unit-50 mg tablet RxNorm: 1 Tablet(s) PO daily take an additonal tablet for itching. 10/21/192018 Inactive This refill negates all other refills of this medication Singulair 10 mg tablet RxNorm: 126432 1 Tablet(s) PO daily 10/21/192018 Inactive This refill negates all other refills of this medication buspirone 7.5 mg tablet RxNorm: 902241 1 Tablet(s) PO BID 10/21/192018 Inactive This refill negates all other refills of this medication diclofenac sodium 75 mg tablet,delayed release RxNorm: 830252 1 Tablet(s) PO BID 10/21/192018 Inactive This refill negates all other refills of this medication hydrochlorothiazide 12.5 mg tablet RxNorm: 921855 1 Tablet(s) PO QAM 10/21/19 19 2018 Inactive metoprolol succinate ER 50 mg tablet,extended release 24 hr RxNorm: 498889 1 Tablet(s) PO daily 01/19/2018 Inactive This refill negates all other refills of this medication levothyroxine 50 mcg tablet RxNorm: 737574 1 Tablet(s) PO daily 10/21/19 19 2018 Inactive This refill negates all other refills of this medication cetirizine 10 mg tablet RxNorm: 3335559 1 Tablet(s) PO daily 10/21/19 19 2018 Inactive This refill negates all other refills of this medication. Please do not auto refill Flintstones Complete (iron) 18 mg iron chewable tablet RxNorm: 1 Tablet(s) PO daily 10/21/19 19 2018 Inactive This refill negates all other refills of this medication buspirone 7.5 mg tablet RxNorm: 141144 1 Tablet(s) PO BID 10/12/19 19 2018 Inactive cetirizine 10 mg tablet RxNorm: 3673542 1 Tablet(s) PO daily 09/28/20 18 2018 Inactive Guaiasorb DM 10 mg-100 mg/5 mL oral liquid RxNorm: 051997 10 Milliliter(s) PO As needed every 4 hr 09/24/20 18 2018 Inactive Vicks Vaporub 4.7 %-1.2 %-2.6 % topical ointment RxNorm: 3857996 1 Application TOP TID 09/24/20 18 2018 Inactive levmetamfetamine 50 mg nasal inhaler RxNorm: 1 Unit(s) NASAL Q3-4H 09/24/20 18 2017 Inactive sertraline 50 mg tablet RxNorm: 718381 1 Tablet(s) PO daily 09/09/20 18 2018 Inactive Please note dose trazodone 50 mg tablet RxNorm: 361129 1 Tablet(s) PO QHS 09/06/20 18 2018 Inactive sertraline 50 mg tablet RxNorm: 535414 1 Tablet(s) PO daily 09/06/20 18 2017 Inactive amoxicillin 500 mg tablet RxNorm: 958839 1 Tablet(s) PO Q12H 08/31/20 18 2017 Inactive albuterol sulfate 2.5 mg/3 mL (0.083 %) solution for nebulization RxNorm: 891284 1 Vial INH QID 08/10/20 18 2018 Inactive 60/box. Please do not fill early. Please do not auto refill. Prozac 10 mg capsule RxNorm: 753684 1 Capsule(s) PO daily 08/09/20 18 2017 Inactive buspirone 7.5 mg tablet RxNorm: 451691 1 Tablet(s) PO BID 08/09/20 18 2018 Inactive gabapentin 300 mg capsule RxNorm: 958644 1 Capsule(s) PO TID as needed 08/01/20 18 2018 Inactive hydrochlorothiazide 12.5 mg tablet RxNorm: 252026 1 Tablet(s) PO QAM 08/01/20 18 2018 Inactive ranitidine 150 mg tablet RxNorm: 744336 1 Tablet(s) PO BID 08/01/20 18 2018 Inactive Macrobid 100 mg capsule RxNorm: 145940 1 Capsule(s) PO Q12H 06/21/20 18 2017 Inactive Singulair 10 mg tablet RxNorm: 470657 1 Tablet(s) PO daily 06/14/20 18 2018 Inactive Ventolin HFA 90 mcg/actuation aerosol inhaler RxNorm: 4735086 2 Puff(s) INH QID 06/14/20 18 2018 Inactive Singulair 10 mg tablet RxNorm: 832299 1 Tablet(s) PO daily 06/14/20 18 2017 Inactive buspirone 7.5 mg tablet RxNorm: 199857 1 Tablet(s) PO BID 06/14/20 18 2017 Inactive Prozac 10 mg capsule RxNorm: 874830 1 Capsule(s) PO daily 06/14/20 18 2017 Inactive Neilmed Pediatric Sinus Rinse Refill packet RxNorm: 1 Unit Dose NASAL PRN 05/31/20 18 2021 Inactive diclofenac sodium 75 mg tablet,delayed release RxNorm: 223279 1 Tablet(s) PO BID 05/31/20 18 2017 Inactive lisinopril 2.5 mg tablet RxNorm: 306704 1 Tablet(s) PO daily 05/31/20 18 2017 Inactive metoprolol succinate ER 50 mg tablet,extended release 24 hr RxNorm: 044383 1 Tablet(s) PO daily 05/31/20 18 2017 Inactive levothyroxine 50 mcg tablet RxNorm: 022472 1 Tablet(s) PO daily 05/31/20 18 2017 Inactive TRUEplus Lancets 30 gauge RxNorm: 1 Lancets Miscellaneous QAM 05/31/20 18 2017 Inactive 100/box Ventolin HFA 90 mcg/actuation aerosol inhaler RxNorm: 527280 2 Puff(s) INH QID 05/31/20 18 2017 Inactive Aleve 220 mg capsule RxNorm: 7171357 1 Capsule(s) PO BID 05/31/20 18 2018 Inactive ranitidine 150 mg tablet RxNorm: 743731 1 Tablet(s) PO BID 05/31/20 18 2017 Inactive gabapentin 300 mg capsule RxNorm: 362078 1 Capsule(s) PO TID as needed 05/31/20 18 2017 Inactive atorvastatin 20 mg tablet RxNorm: 742852 1 Tablet(s) PO QHS 05/31/20 18 2017 Inactive True Metrix Glucose Test Strip RxNorm: 1 [facility] 05/31/20 18 2017 Inactive 50/container Calcium 600-D3 Plus 600 mg calcium-800 unit-50 mg tablet RxNorm: 1 Tablet(s) PO daily take an additonal tablet for itching. 05/31/20 18 2017 Inactive hydrochlorothiazide 12.5 mg tablet RxNorm: 905471 1 Tablet(s) PO QAM 05/31/20 18 2017 Inactive Flintstones Complete (iron) 18 mg iron chewable tablet RxNorm: 1 Tablet(s) PO daily 05/31/20 18 2017 Inactive d-mannose oral powder RxNorm: PO 18 2021 Inactive True Metrix Glucose Meter RxNorm: miscellaneous 08/17/20 19 2018 Inactive sertraline 50 mg tablet RxNorm: 725096 1 Tablet(s) PO daily 11/28/19 20 2019 Inactive loperamide 2 mg tablet RxNorm: 178581 oral 09/29/20 19 2018 Inactive Symbicort 160 mcg-4.5 mcg/actuation HFA aerosol inhaler RxNorm: 1320158 2 Puff(s) INH BID 08/17/20 19 2018 Inactive Medication Administered No Medication Administered data Procedures Procedure Codes Date Frailty Screening CPT-4: SFD 05/20/2021 Hypertension CPT-4: HTN 04/01/2021 Tobacco Assessment/Screening CPT-4: TCA 08/2021 Patient Health Questionnaire CPT-4: DPHQ 08/2021 Mini Mental State Exam CPT-4: DMMA 1 Annual Wellness Visit (Subsequent Visit) CPT-4: G0439 01/13/2021 Advanced Care Planning CPT-4: VACP Fall Risk Assessment SNOMED CT: 77500151 4 CPT-4: DFRA01/13/2021emmes Fany AssessmentCPT-4: DSWA12/17/2020Urinalysis, dip stickCPT-4: 599500709/24/2020Patient Health QuestionnaireCPT-4: DPHQ 08/19/2020ElectrocardiogramCPT-4: 007180905/14/2020Tobacco Assessment/Screening CPT-4: TCA01/01/2020Fall Risk AssessmentSNOMED CT: 287226016 CPT-4: DFRA01/01/2020Functional AssessmentCPT-4: DFA01/01/2020Semmes Fany AssessmentCPT-4: DSWA11/28/2019Patient Health QuestionnaireCPT-4: DPHQ11/28/2019 Tennyson Fany AssessmentCPT-4: DSWA10/17/2019HypertensionCPT-4: HTN10/17/[address]: 275645009 CPT-4: DFRA09/19/2019Functional AssessmentCPT-4: DFA111/20/2018Urinalysis, dip stickCPT-4: 3015371Tobacco Assessment/ScreeningCPT-4: TCA05/24/2019 Patient Health QuestionnaireCPT-4: DPHQ08AHA/REBECCA Classification AssessmentCPT-4: DAHA04/25/2019Controlled Substance ReportCPT-4: CTRSU04/25/2019 Urinalysis, dip stickCPT-4: 099394203/28/2019Urinalysis, dip stickCPT-4: 97946 03/28/20196747G0Z-QwlenrttdjwnqhoJZH-9: 18312CkvsugoU1R-EvfoyrqbsgboyuqHML-2: 64045 HrqljxeN1W-FghhzoklwbvgmmxMWJ-6: 32749BerrmrwK9A-EfckrtlmjgolyyaDLJ-6: 08149 ZuiqxnpK2Z-RcznkictgfutjtkYHL-6: 32100ZznluzpS6D-PnpagfaeezlmtgzTBT-7: 90865 GrvwldwL2G-KnapxynayyqepnjQJA-1: 43747IqwmzhrYfnahuqdnd ReferralSNOMED CT: 298374609 CPT-4: E56Tclfhni Reason For Visit No Reason For Visit data Plan of Care Planned Activity Notes Codes Status Date Referral: Pending Gynecology Referral Informatio n Referral ProcessedReferral: Pending Pulmonology Referral InformationReferralProcessed Referral: Pending Psychiatry Referral InformationReferralInitiatedReferral: Pending Respiratory Services Referral InformationReferralInitiatedReferral: Pending Ophthalmology Referral InformationReferralInitiatedReferral: [facility] WPtel: [address] [place] [address] USWriter placed a call out to the patient to notify her that it has been recommended that she be seenby a urologist. Patient agreed to be seen, does not have a provider of choice and no transportationissues. Circulation Worker faxed referral and clinical notes to [facility] in [place], [place] near the patient's home. Patient to [...] seen and prefers a provider in the [place] or [place] area. Circulation Worker placed a call out to everyone listed in the area and the only location that was able to accept the patient's insurance was [facility] [address] [place] [address] and spoke with Maylin. Maylin asked that the patient's referral, face sheet and visit notes be faxed to . Circulation Worker faxed over requested documents. Patient appointment confirmation letter generated and mailed to her home address. Patient to call to schedule an appointment.ProcessedReferral: [facility] WPtel: [address] [place], [place] [id number] USPatient notified that it has been advised that she be seen by Neurology. Patient agreed to be seen and prefers to be seen by a provider in the [place], [place] area. Patient denies any concerns with transportation, and prefers to schedule her own appointment. Circulation Worker placed a call out to [facility] [facility] and spoke with [email or web address] [...]
--- OUTSIDE RECORDS SUMMARY | 2023-12-07 02:17 | XMS_ITS | CCD ---
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 Name Role Phone Anna Culver NP Primary Care Provider Unav ailable Unavailable Chronic Care Management Unavaila ble Summary Purpose DataExchange Insurance Providers Payer name Policy type / Coverage type Covered green party ID Effective Begin Date Effective End Date SUKI MAYO [id number] Unknown Unknown Family history Mother Diagnosis Age [...] 05/31/2018 Education level Unknown Some High School 10th05/31/20184466MelhuunlwnEcqtplaGlklhjbepo85/29/2018Tobacco historySNOMED CT: 601882933Jkg never smoked or chewed prukpyt2405/31/2018Alcohol historySNOMED CT: 772892952Luzpp drinks vmdczxz0405/31/2018Has the patient ever used illegal drugs? UnknownHas never used illegal drugs05/31/2018DNR Order/ Advanced Directive UnknownFull Code05/31/2018 Allergies, Adverse Reactions, Alerts Substance Reaction Codes Entered Date Inactivated Date Status OxyContin itch, RxNorm: 671341 01/13/2021 No Inactive Da te Active *No known food allergies Xmiisie0009/06/2018No Inactive DateActiveMethylprednisolonehivesRxNorm: 6902 09/06/2018No Inactive DateActive Problems Condition Codes Effective Dates Condition St atus Type 2 diabetes mellitus with peripheral neuropathy ICD-10: E11.42 ICD-9: 250.6002/ActiveUpper respiratory infectionICD-10: J06.9 ICD-9: 465.908/ctiveChronic kidney disease, stage 2 (mild)ICD-10: N18.2 ICD-9: 585.201/ctiveFamily history of seizuresICD-10: Z84.89 ICD-9: V19.807/ctiveHypertensive heart disease with heart failureICD-10: I11.0 ICD-9: 402.9107/ActiveSyncope and collapseICD-10: R55 ICD-9: 780.ActiveAnorexiaICD-10: R63.0 ICD-9: 783.003/ctiveAdjustment disorder with mixed anxiety and depressed moodICD-10: F43.23 ICD-9: 309.2812/01/2018ActivePost-traumatic stress disorder, unspecifiedICD-10: F43.10 ICD-9: 309.8112/01/2018ActiveBlisterICD-10: T14.8XXA ICD-9: 919.206ctiveObstructive sleep apnea (adult) (pediatric)ICD-10: G47.33 ICD-9: 327.2309/ActiveEncounter [...] examinationICD-10: Z01.810 ICD-9: V72.8106/InactiveHeadacheICD-10: R51 ICD-9: 784.001InactiveOther technician terminal and repeater (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ICD-10: Z79.899 ICD-9: V58.6907/InactiveType 2 [...] 12 Hour 120 mg tablet,extended release RxNorm: 2344005 TAKE 1 TABLET BY MOUTH EVERY 12 HOURS NEEDED 06/01/20 21 2021 Inactive Heartburn Relief (famotidine) 10 mg tablet RxNorm: 488140 Take 1 Tablet(s) Oral every morning 05/07/20 21 2020 Inactive omeprazole 20 mg capsule,delayed release RxNorm: 966388 1 Capsule(s) Oral every evening 04/03/202020 Inactive sertraline 100 mg tablet RxNorm: 558952 2 Tablet(s) Oral every day 03/13/202020 Inactive levothyroxine 50 mcg tablet RxNorm: 961333 TAKE (1) TABLET BY MOUTH DAILY 02/04/202020 Inactive metformin 500 mg tablet RxNorm: 585259 1 Tablet(s) Oral two times a day take with 500mg to equal 1000mg 01/14/202020 Inactive gabapentin 300 mg capsule RxNorm: 615580 TAKE 1 CAPSULE BY MOUTH THREE TIMES A DAY 01/14/202020 Inactive lisinopril 2.5 mg tablet RxNorm: 038771 TAKE 1 TABLET BY MOUTH DAILY 01/06/20 21 2020 Inactive gabapentin 300 mg capsule RxNorm: 186804 TAKE 1 CAPSULE BY MOUTH THREE TIMES A DAY 01/06/202020 Inactive Singulair 10 mg tablet RxNorm: 048777 TAKE (1) TABLET BY MOUTH DAILY 01/06/20 21 2020 Inactive metformin 1,000 mg tablet RxNorm: 637568 1 Tablet(s) Oral two times a day 01/06/20 21 2020 Inactive atorvastatin 40 mg tablet RxNorm: 810442 1 Tablet(s) Oral every day 12/06/19 21 2020 Inactive omeprazole 20 mg capsule,delayed release RxNorm: 936463 1 Capsule(s) Oral every evening 11/24/19 21 2020 Inactive famotidine 10 mg tablet RxNorm: 657000 1 Tablet(s) Oral every morning 11/24/19 21 2020 Inactive Alcohol Prep Pads RxNorm: 918229 USE EACH MORNING 10/14/19 21 2020 Inactive omeprazole 20 mg capsule,delayed release RxNorm: 747501 1 Capsule(s) Oral two times a day 10/13/19 21 2021 Inactive omeprazole 20 mg capsule,delayed release RxNorm: 851630 TAKE 1 CAPSULE BY MOUTH EVERY DAY 10/08/192021 Inactive Macrobid 100 mg capsule RxNorm: 231504 1 Capsule(s) Oral every 12 hours with food 10/01/202020 Inactive omeprazole 20 mg capsule,delayed release RxNorm: 040027 1 Capsule(s) Oral two times a day 09/24/202021 Inactive metformin 1,000 mg tablet RxNorm: 436660 1 Tablet(s) Oral two times a day 08/19/20 20 2020 Inactive start on September 11, 2020 metformin 500 mg tablet RxNorm: 146454 1 Tablet(s) Oral two times a day take with 500mg to equal 1000mg 08/19/202019 Inactive gabapentin 300 mg capsule RxNorm: 425402 TAKE 1 CAPSULE BY MOUTH THREE TIMES DAILY 07/11/20 20 2020 Inactive cetirizine 10 mg tablet RxNorm: 7935448 TAKE (1) TABLET BY MOUTH DAILY 07/11/20 20 2020 Inactive metformin 500 mg tablet RxNorm: 057343 1 Tablet(s) Oral two times a day 07/08/20 20 2019 Inactive loperamide 2 mg tablet RxNorm: 537590 1 Tablet(s) Oral as needed take one tablet after each loose stool, maximum of 8 tablets in 24 hours 06/24/20 2021 Inactive Sudafed 12 Hour 120 mg tablet,extended release RxNorm: 4318618 TAKE 1 TABLET BY MOUTH EVERY 12 HOURS NEEDED 06/11/20 20 2019 Inactive hydrochlorothiazide 25 mg tablet RxNorm: 664864 TAKE (1) TABLET BY MOUTH EVERY DAY 06/11/20 20 2019 Inactive omeprazole 20 mg capsule,delayed release RxNorm: 630059 TAKE 1 CAPSULE BY MOUTH EVERY DAY 05/14/20 20 2020 Inactive metformin 500 mg tablet RxNorm: 848240 1 Tablet(s) Oral every day 05/12/20 20 2019 Inactive True Metrix Glucose Test Strip RxNorm: 1 Test Strips Miscellaneous two times a day as needed 04/17/20 No Stop Date Active metformin 500 mg tablet RxNorm: 133352 1 Tablet(s) Oral every day 04/17/20 20 2019 Inactive diclofenac sodium 75 mg tablet,delayed release RxNorm: 944785 1 Tablet(s) PO BID 04/14/20 20 2021 Inactive This refill negates all other refills of this medication Sudafed 12 Hour 120 mg tablet,extended release RxNorm: 7776383 TAKE 1 TABLET BY MOUTH EVERY 12 HOURS NEEDED 03/14/20 20 2019 Inactive True Metrix Glucose Test Strip RxNorm: 1 Test Strips Miscellaneous every morning 03/13/20 20 2019 Inactive 100/container True Metrix Glucose Test Strip RxNorm: 1 Test Strips Miscellaneous [facility] 02/22/20 20 2019 Inactive 100/container loperamide 2 mg tablet RxNorm: 865321 1 Tablet(s) Oral as needed take one tablet after each loose stool, maximum of 8 tablets in 24 hours 02/22/20 20 2019 Inactive cetirizine 10 mg tablet RxNorm: 9671418 1 Tablet(s) PO daily 01/17/20 20 2019 Inactive loperamide 2 mg tablet RxNorm: 005223 1 Tablet(s) Oral as needed take one tablet after each loose stool, maximum of 8 tablets in 24 hours 01/17/20 20 2019 Inactive quetiapine 100 mg tablet RxNorm: 749760 1 Tablet(s) Oral every night at bedtime 01/17/20 20 2019 Inactive levothyroxine 50 mcg tablet RxNorm: 814060 1 Tablet(s) PO daily 01/17/20 20 2020 Inactive gabapentin 300 mg capsule RxNorm: 576223 1 Capsule(s) PO TID 01/17/20 20 2019 Inactive levothyroxine 50 mcg tablet RxNorm: 452646 1 Tablet(s) PO daily 01/15/20 20 2019 Inactive lisinopril 2.5 mg tablet RxNorm: 698200 1 Tablet(s) PO daily 01/15/20 20 2020 Inactive gabapentin 300 mg capsule RxNorm: 508110 1 Capsule(s) PO TID 01/15/20 20 2019 Inactive cetirizine 10 mg tablet RxNorm: 1324949 1 Tablet(s) PO daily 01/15/20 20 2019 Inactive Singulair 10 mg tablet RxNorm: 301029 1 Tablet(s) PO daily 01/15/20 20 2020 Inactive gentamicin 0.3 % eye drops RxNorm: 428544 1 Drop(s) ophthalmic (eye) four times a day 12/29/19 20 2019 Inactive gentamicin 0.3 % eye drops RxNorm: 900336 1 Drop(s) ophthalmic (eye) four times a day 12/29/19 20 2019 Inactive gentamicin 0.3 % eye drops RxNorm: 564785 1 Drop(s) ophthalmic (eye) four times a day 12/29/19 20 2019 Inactive hydrochlorothiazide 25 mg tablet RxNorm: 929853 1 Tablet(s) Oral every day 12/21/19 20 2019 Inactive Sudafed 12 Hour 120 mg tablet,extended release RxNorm: 2737660 TAKE (1) TABLET BY MOUTH EVERY 12 HOURS NEEDED 12/21/19 20 2019 Inactive loperamide 2 mg tablet RxNorm: 665438 1 Tablet(s) Oral as needed take one tablet after each loose stool, maximum of 8 tablets in 24 hours 12/11/19 20 2019 Inactive loperamide 2 mg tablet RxNorm: 944173 1 Tablet(s) Oral as needed take one tablet after each loose stool, maximum of 8 tablets in 24 hours 12/11/19 20 2019 Inactive atorvastatin 40 mg tablet RxNorm: 107622 1 Tablet(s) Oral every day 11/29/19 20 2020 Inactive quetiapine 100 mg tablet RxNorm: 418544 1 Tablet(s) Oral every night at bedtime 11/28/19 20 2019 Inactive sertraline 100 mg tablet RxNorm: 943862 1 Tablet(s) Oral 11/28/19 20 2019 Inactive omeprazole 20 mg capsule,delayed release RxNorm: 105566 1 Capsule(s) Oral every day 11/20/19 20 2019 Inactive amoxicillin 250 mg capsule RxNorm: 900584 1 Capsule(s) Oral three times a day 11/07/19 20 2019 Inactive multivitamin with iron-mineral tablet RxNorm: 1 Tablet(s) Oral every day 10/29/19 20 2021 Inactive cetirizine 10 mg tablet RxNorm: 9433001 1 Tablet(s) PO daily 10/20/19 20 2019 Inactive This refill negates all other refills of this medication. Please do not auto refill Singulair 10 mg tablet RxNorm: 035924 1 Tablet(s) PO daily 10/20/19 20 2019 Inactive This refill negates all other refills of this medication gabapentin 300 mg capsule RxNorm: 831922 1 Capsule(s) PO TID 10/20/19 20 2019 Inactive lisinopril 2.5 mg tablet RxNorm: 634673 1 Tablet(s) PO daily 10/20/19 20 2019 Inactive levothyroxine 50 mcg tablet RxNorm: 541042 1 Tablet(s) PO daily 10/20/19 20 2019 Inactive This refill negates all other refills of this medication fenugreek seed extract 500 mg capsule RxNorm: 1 Capsule(s) Oral three times a day 10/17/19 20 2021 Inactive hydrochlorothiazide 25 mg tablet RxNorm: 639733 1 Tablet(s) Oral every day 10/17/19 20 2019 Inactive Alcohol Prep Pads RxNorm: 004183 1 Patch TOP QAM 10/16/19 20 2020 Inactive loperamide 2 mg tablet RxNorm: 762462 1 Tablet(s) Oral as needed take one [...] 2019 Inactive hydrochlorothiazide 25 mg tablet RxNorm: 645420 1 Tablet(s) Oral every day 09/19/20 19 2019 Inactive Sudafed 12 Hour 120 mg tablet,extended release RxNorm: 4561960 1 Tablet(s) Oral every 12 hours as needed 09/11/20 19 2018 Inactive omeprazole 20 mg capsule,delayed release RxNorm: 433766 1 Capsule(s) Oral every day 09/07/20 19 2019 Inactive Sudafed 12 Hour 120 mg tablet,extended release RxNorm: 9559353 1 Tablet(s) Oral every 12 hours as needed 09/04/20 19 2018 Inactive pantoprazole 40 mg tablet,delayed release RxNorm: 496929 1 Tablet(s) Oral every day 08/24/20 19 2018 Inactive discontinue any other H2Blkr. and PPI albuterol sulfate 2.5 mg/3 mL (0.083 %) solution for nebulization RxNorm: 888406 1 Vial Inhalation every four hours as needed as needed for dyspnea 08/17/20 19 2019 Inactive 60/box. This refill negates all other refills of this medication. Please do not fill early. Please do not auto refill. Symbicort 160 mcg-4.5 mcg/actuation HFA aerosol inhaler RxNorm: 8207582 2 Puff(s) INH BID 08/17/20 19 No Stop Date Active Alcohol Prep Pads RxNorm: 656426 1 Patch TOP QAM 08/17/20 19 2019 Inactive Ventolin HFA 90 mcg/actuation aerosol inhaler RxNorm: 892587 2 Puff(s) INH QID 08/09/20 19 2019 Inactive Please do not fill early. Please do not auto refill. This refill negates all other refills of this medication True Metrix Glucose Test Strip RxNorm: 1 Test Strips Miscellaneous QAM 08/09/20 19 2019 Inactive 100/container atorvastatin 40 mg tablet RxNorm: 410853 1 Tablet(s) Oral every day 07/04/20 19 2019 Inactive levmetamfetamine 50 mg nasal inhaler RxNorm: 1 Unit(s) NASAL Q3-4H Do not use more than every 3 hours or 8 times/24hours 06/26/20 19 2021 Inactive Please do not auto refill. This refill negates all other refills of this medication buspirone 7.5 mg tablet RxNorm: 711930 1 Tablet(s) PO BID 06/26/20 19 2020 Inactive This refill negates all other refills of this medication hydrochlorothiazide 12.5 mg tablet RxNorm: 949379 1 Tablet(s) PO QAM 06/26/20 19 2019 Inactive Ventolin HFA 90 mcg/actuation aerosol inhaler RxNorm: 796007 2 Puff(s) INH QID 06/26/20 19 2018 Inactive Please do not fill early. Please do not auto refill. This refill negates all other refills of this medication Singulair 10 mg tablet RxNorm: 100275 1 Tablet(s) PO daily 06/26/20 19 2019 Inactive This refill negates all other refills of this medication cetirizine 10 mg tablet RxNorm: 4100368 1 Tablet(s) PO daily 06/26/20 19 2019 Inactive This refill negates all other refills of this medication. Please do not auto refill levothyroxine 50 mcg tablet RxNorm: 259219 1 Tablet(s) PO daily 06/26/20 19 2019 Inactive This refill negates all other refills of this medication diclofenac sodium 75 mg tablet,delayed release RxNorm: 762388 1 Tablet(s) PO BID 06/26/20 19 2019 Inactive This refill negates all other refills of this medication ranitidine 150 mg tablet RxNorm: 388913 1 Tablet(s) PO BID 06/26/20 19 2018 Inactive This refill negates all other refills of this medication Calcium 600-D3 Plus (mag-zinc) 600 mg calcium-800 unit-50 mg tablet RxNorm: 1 Tablet(s) PO daily take an additonal tablet for itching. 06/26/20 19 2018 Inactive This refill negates all other refills of this medication albuterol sulfate 2.5 mg/3 mL (0.083 %) solution for nebulization RxNorm: 661625 1 Vial INH QID 06/26/20 19 2018 Inactive 60/box. This refill negates all other refills of this medication. Please do not fill early. Please do not auto refill. lisinopril 2.5 mg tablet RxNorm: 255243 1 Tablet(s) PO daily 06/21/20 19 2019 Inactive gabapentin 300 mg capsule RxNorm: 458777 1 Capsule(s) PO TID 06/21/20 19 2019 Inactive atorvastatin 20 mg tablet RxNorm: 826279 1 Tablet(s) PO QHS 06/07/20 19 2018 Inactive This refill negates all other refills of this medication TRUEplus Lancets 30 gauge RxNorm: 1 Lancets Miscellaneous QAM 05/29/20 19 2018 Inactive 100/box gabapentin 300 mg capsule RxNorm: 838758 1 Capsule(s) PO TID 05/03/20 19 2018 Inactive Flintstones Complete (iron) 18 mg iron chewable tablet RxNorm: 1 Tablet(s) PO daily 04/04/20 19 2021 Inactive This refill negates all other refills of this medication gabapentin 300 mg capsule RxNorm: 529755 1 Capsule(s) PO TID as needed 02/01/20 19 2018 Inactive True Metrix Glucose Test Strip RxNorm: 1 Test Strips Miscellaneous QAM 02/01/20 19 2018 Inactive 100/container Alcohol Prep Pads RxNorm: 568830 1 Patch TOP QAM 02/01/20 19 2018 Inactive TRUEplus Lancets 30 gauge RxNorm: 1 Lancets Miscellaneous QAM 02/01/20 19 2018 Inactive 100/box lisinopril 2.5 mg tablet RxNorm: 929372 1 Tablet(s) PO daily 12/28/19 19 2018 Inactive ranitidine 150 mg tablet RxNorm: 608944 1 Tablet(s) PO BID 10/21/19 19 2018 Inactive This refill negates all other refills of this medication albuterol sulfate 2.5 mg/3 mL (0.083 %) solution for nebulization RxNorm: 181588 1 Vial INH QID 10/21/19 19 2018 [...] this medication gabapentin 300 mg capsule RxNorm: 235590 1 Capsule(s) PO TID as needed 10/21/19 19 2018 Inactive atorvastatin 20 mg tablet RxNorm: 838595 1 Tablet(s) PO QHS 10/21/192018 Inactive This refill negates all other refills of this medication trazodone 50 mg tablet RxNorm: 931119 1 Tablet(s) PO QHS 10/21/19 19 2018 Inactive This refill negates all other refills of this medication Ventolin HFA 90 mcg/actuation aerosol inhaler RxNorm: 963554 2 Puff(s) INH QID 10/21/19 19 2018 Inactive Please do not fill early. Please do not auto refill. This refill negates all other refills of this medication Calcium 600-D3 Plus 600 mg calcium-800 unit-50 mg tablet RxNorm: 1 Tablet(s) PO daily take an additonal tablet for itching. 10/21/192018 Inactive This refill negates all other refills of this medication Singulair 10 mg tablet RxNorm: 669705 1 Tablet(s) PO daily 10/21/19 19 2018 Inactive This refill negates all other refills of this medication buspirone 7.5 mg tablet RxNorm: 929228 1 Tablet(s) PO BID 10/21/192018 Inactive This refill negates all other refills of this medication diclofenac sodium 75 mg tablet,delayed release RxNorm: 772589 1 Tablet(s) PO BID 10/21/19 19 2018 Inactive This refill negates all other refills of this medication hydrochlorothiazide 12.5 mg tablet RxNorm: 145391 1 Tablet(s) PO QAM 10/21/192018 Inactive metoprolol succinate ER 50 mg tablet,extended release 24 hr RxNorm: 552736 1 Tablet(s) PO daily 10/21/192018 Inactive This refill negates all other refills of this medication levothyroxine 50 mcg tablet RxNorm: 464387 1 Tablet(s) PO daily 10/21/192018 Inactive This refill negates all other refills of this medication cetirizine 10 mg tablet RxNorm: 5776652 1 Tablet(s) PO daily 10/21/192018 Inactive This refill negates all other refills of this medication. Please do not auto refill Flintstones Complete (iron) 18 mg iron chewable tablet RxNorm: 1 Tablet(s) PO daily 10/21/192018 Inactive This refill negates all other refills of this medication buspirone 7.5 mg tablet RxNorm: 681620 1 Tablet(s) PO BID 10/12/19 19 2018 Inactive cetirizine 10 mg tablet RxNorm: 7781321 1 Tablet(s) PO daily 09/28/20 18 2018 Inactive Guaiasorb DM 10 mg-100 mg/5 mL oral liquid RxNorm: 347489 10 Milliliter(s) PO As needed every 4 hr 09/24/20 18 2018 Inactive Vicks Vaporub 4.7 %-1.2 %-2.6 % topical ointment RxNorm: 4077936 1 Application TOP TID 09/24/20 18 2018 Inactive levmetamfetamine 50 mg nasal inhaler RxNorm: 1 Unit(s) NASAL Q3-4H 09/24/20 18 2017 Inactive sertraline 50 mg tablet RxNorm: 419882 1 Tablet(s) PO daily 09/09/20 18 2018 Inactive Please note dose trazodone 50 mg tablet RxNorm: 498466 1 Tablet(s) PO QHS 09/06/20 18 2018 Inactive sertraline 50 mg tablet RxNorm: 488080 1 Tablet(s) PO daily 09/06/20 18 2017 Inactive amoxicillin 500 mg tablet RxNorm: 118419 1 Tablet(s) PO Q12H 08/31/20 18 2017 Inactive albuterol sulfate 2.5 mg/3 mL (0.083 %) solution for nebulization RxNorm: 967781 1 Vial INH QID 08/10/20 18 2018 Inactive 60/box. Please do not fill early. Please do not auto refill. Prozac 10 mg capsule RxNorm: 351768 1 Capsule(s) PO daily 08/09/20 18 2017 Inactive buspirone 7.5 mg tablet RxNorm: 414339 1 Tablet(s) PO BID 08/09/20 18 2018 Inactive gabapentin 300 mg capsule RxNorm: 027487 1 Capsule(s) PO TID as needed 08/01/20 18 2018 Inactive hydrochlorothiazide 12.5 mg tablet RxNorm: 796763 1 Tablet(s) PO QAM 08/01/20 18 2018 Inactive ranitidine 150 mg tablet RxNorm: 788185 1 Tablet(s) PO BID 08/01/20 18 2018 Inactive Macrobid 100 mg capsule RxNorm: 866243 1 Capsule(s) PO Q12H 06/21/20 18 2017 Inactive Singulair 10 mg tablet RxNorm: 598274 1 Tablet(s) PO daily 06/14/20 18 2018 Inactive Ventolin HFA 90 mcg/actuation aerosol inhaler RxNorm: 5423767 2 Puff(s) INH QID 06/14/20 18 2018 Inactive Singulair 10 mg tablet RxNorm: 526220 1 Tablet(s) PO daily 06/14/20 18 2017 Inactive buspirone 7.5 mg tablet RxNorm: 500461 1 Tablet(s) PO BID 06/14/20 18 2017 Inactive Prozac 10 mg capsule RxNorm: 061327 1 Capsule(s) PO daily 06/14/20 18 2017 Inactive NeIndiPharmmed Pediatric Sinus Rinse Refill packet RxNorm: 1 Unit Dose NASAL PRN 05/31/20 18 2021 Inactive diclofenac sodium 75 mg tablet,delayed release RxNorm: 802535 1 Tablet(s) PO BID 05/31/20 18 2017 Inactive lisinopril 2.5 mg tablet RxNorm: 784283 1 Tablet(s) PO daily 05/31/20 18 2017 Inactive metoprolol succinate ER 50 mg tablet,extended release 24 hr RxNorm: 029032 1 Tablet(s) PO daily 05/31/20 18 2017 Inactive levothyroxine 50 mcg tablet RxNorm: 276630 1 Tablet(s) PO daily 05/31/20 18 2017 Inactive TRUEplus Lancets 30 gauge RxNorm: 1 Lancets Miscellaneous QAM 05/31/20 18 2017 Inactive 100/box Ventolin HFA 90 mcg/actuation aerosol inhaler RxNorm: 400593 2 Puff(s) INH QID 05/31/20 18 2017 Inactive Aleve 220 mg capsule RxNorm: 3908856 1 Capsule(s) PO BID 05/31/20 18 2018 Inactive ranitidine 150 mg tablet RxNorm: 009766 1 Tablet(s) PO BID 05/31/20 18 2017 Inactive gabapentin 300 mg capsule RxNorm: 598350 1 Capsule(s) PO TID as needed 05/31/20 18 2017 Inactive atorvastatin 20 mg tablet RxNorm: 504929 1 Tablet(s) PO QHS 05/31/20 18 2017 Inactive True Metrix Glucose Test Strip RxNorm: 1 Test Strips Miscellaneous QA 05/31/20 18 2017 Inactive 50/container Calcium 600-D3 Plus 600 mg calcium-800 unit-50 mg tablet RxNorm: 1 Tablet(s) PO daily take an additonal tablet for itching. 05/31/20 18 2017 Inactive hydrochlorothiazide 12.5 mg tablet RxNorm: 089578 1 Tablet(s) PO QAM 05/31/20 18 2017 Inactive Flintstones Complete (iron) 18 mg iron chewable tablet RxNorm: 1 Tablet(s) PO daily 05/31/20 18 2017 Inactive d-mannose oral powder RxNorm: PO 18 2021 Inactive True Metrix Glucose Meter RxNorm: miscellaneous 08/17/20 19 2018 Inactive sertraline 50 mg tablet RxNorm: 812031 1 Tablet(s) PO daily 11/28/19 20 2019 Inactive loperamide 2 mg tablet RxNorm: 046634 oral 09/29/20 19 2018 Inactive Symbicort 160 mcg-4.5 mcg/actuation HFA aerosol inhaler RxNorm: 4360500 2 Puff(s) INH BID 08/17/20 19 2018 Inactive Medication Administered No Medication Administered data Procedures Procedure Codes Date Frailty Screening CPT-4: SFD 05/20/2021 Hypertension CPT-4: HTN 04/01/2021 Tobacco Assessment/Screening CPT-4: TCA 08/2021 Patient Health Questionnaire CPT-4: DPHQ 08/2021 Mini Mental State Exam CPT-4: DMMA 1 Annual Wellness Visit (Subsequent Visit) CPT-4: G0439 01/13/2021 Advanced Care Planning CPT-4: VACP 1 [facility] 4 CPT-4: DFRA1Semmes Fany AssessmentCPT-4: DSWA12/17/2020Urinalysis, dip stickCPT-4: 927374509/24/2020Patient Health QuestionnaireCPT-4: DPHQ 08/19/2020ElectrocardiogramCPT-4: 2337033Tobacco Assessment/Screening CPT-4: TCA01/01/2020Fall Risk AssessmentSNOMED CT: 862694180 CPT-4: DFRA01/01/2020Functional AssessmentCPT-4: DFA01/01/2020Semmes Fany AssessmentCPT-4: DSWA11/28/2019Patient Health QuestionnaireCPT-4: DPHQ11/28/2019 Glendora Fany AssessmentCPT-4: DSWA10/17/2019HypertensionCPT-4: HTN10/17/[address]: 305930370 CPT-4: DFRA09/19/2019Functional AssessmentCPT-4: DFA111/20/2018Urinalysis, dip stickCPT-4: 217200806/21/2019Tobacco Assessment/ScreeningCPT-4: TCA05/24/2019 Patient Health QuestionnaireCPT-4: DPHQ05/24/2019AHA/REBECCA Classification AssessmentCPT-4: DAHA04/25/2019Controlled Substance ReportCPT-4: CTRSU04/25/2019 Urinalysis, dip stickCPT-4: 600619403/28/2019Urinalysis, dip stickCPT-4: 40114 03/28/20198674Y1S-MsizdcvpyfnrrtqRVO-4: 41788OaroubgG9S-ZhqgkcybbonrzdfGBU-4: 48717 SjhnmaoY6S-NthqktvynngjcjhYLE-4: 41722QxfwiraH3A-LwqnsmqkadfpebfROX-5: 08252 YnpvwbmJ2P-WaofutkqyixevguQCX-2: 62095SqrmufbH4M-LbszqlunuynuzpbBTX-3: 79892 NmlzdwfJ9R-EyszktlksesifqpHCH-4: 59148BwwiifnWetbtanigi [facility]erralSCH[facility]: 694594279 CPT-4: H03Kklvtgh Reason For Visit Reason For Visit Effective Dates Notes sinus congestion 06/02/2021 diabetes mellitus 06/02/2021 Interim health update 06/02/2021 dizziness 06/02/2021 Encounters Encounter Performer Location Location Address Codes Magdi e ([id number]) (EST PT) DETAILED TE [facility] VISIT Diagnosis: Upper respiratory infection[ICD10: J06.9] Diagnosis: Type 2 diabetes mellitus with peripheral neuropathy[ICD10: E11.42] Anna CulverMallory [id number] [place] [address] [address] [place], [place] [address]AZO-6: [id number]/ Plan of Care Planned Activity Notes Codes Status Date Visit Plan: Video and audio call using [employer] J06.9-512.9 Upper respiratory infection prescription for sudafed sent [...] this medication received new monitor Pablo through [employer]participant of [employer] - 05/20/2021 Hemoglobin A1C 5.4 stable 10/17/2019 Glendora Fany 7/10-instructed on good daily foot care [...] diabetes mellitus labs to be drawn at [facility] - has appt 06/09/2021 advised to notify office for persistent or worsening symptoms F43.23-309.28 Adjustment disorder with mixed anxiety and depressed mood reviewed previously discussed stress management routine follow up [place] [facility] 03/13/2021 PHQ 9 Score 4 Sertraline 200mg daily 04/01/2021 Functional Assessment independent with ADLs R63.0-783.0 Anorexia symptoms persistent advised to continue to try small, more frequent food intake, discussed limiting carbonated beverages as this may make her feel full taking away appetite discussed benefits of [place] Instant Breakfast not using note weight has remained stable over the past couple months-will continue to monitor I10-401.9 Essential (primary) hypertension I11.0-402.91 Hypertensive heart disease with heart failure cont hctz and lisinipril 04/01/2021 HTN assessment complete discussed lifestyle modification including weight loss and limiting sodium intake 05/20/2021 GFR >60 [place] lab didn't provide exact number 05/14/2020 EKG [...] fat, fried foods discussed benefits of increased jtiqahwtT56.46-788.33 Mixed incontinence use of incontinence supplies R55-780.2 [...] new appt for pap in June 2020-[facility]-reports pap negative-records requested Z01.89-V72.85 Encounter for screening for tobacco use 03/13/2021 Tobacco screen complete- patient denies ever smoking Z12.31-V76.12 (Z12.31-V76.12) Encounter for screening mammogram for malignant neoplasm of breast Z12.11-V76.51(Z12.11- V76.51) Encounter for screening for malignant neoplasm of colon Preventative testing not indicated due to age *I reviewed the most recent CDC guidelines regarding Covid-19/Coronavirus with the patient/caregiver/designee 1Patient Education: Patient Medication GbaxlyuNxdjpiesi54/31/2021 Patient Education: FnepazdiQndgswwku18/31/2021Patient Education: Dizziness Krsdjkcsb37/31/2021ppointment: Chivo Bishop WPtel: [id number] [address] USETV05/20/2021ppointment: Anna Culver WPtel: [address] [address] USETV04/28/2021ppointment: Chivo Bishop WPtel: [phone] [place] [address] USETV04/15/2021ppointment: Anna Culver WPtel: [phone] [place] [address] [id number]: Anna Culver WPtel: [phone] [place] [address] USETV03/24/2021ppointment: Anna Culver WPtel: [phone] [place] [address] USETV03/13/2021ppointment: Anna Culver WPtel: [id number] [place] [address] [id number]: Chivo Bishop WPtel: [phone] [place] [address] [id number]: Anna Culver WPtel: [phone] [place] [address] USETV01/13/2021ppointment: Anna Culver WPtel: [phone] [place] [address] [place] [address] [id number]: Chivo Bishop WPtel: [id number] [place] [address] [place] [address] USETV11/28/2020ppointment: Anna Culver WPtel: [phone] [place] [address] USETV11/24/2020ppointment: Anna Culver WPtel: [phone] [place] [address] [place] [address] [id number]: Anna Culver WPtel: [phone] [place] [address] [id number]/25/2019Appointment: Anna Culver WPtel: [phone] [place] [address] [place] [address] USETV110/26/2019Appointment: Anna Culver WPtel: [phone] [place] [address] USETV110/19/2019Appointment: Anna Culver WPtel: [phone] [place] [address] USETV1Appointment: Anna Culver WPtel: [address] [place] [address] USETV1Appointment: Gianna Birmingham MCtel: [address] [facility] [address] [id number]: Anna Culver WPtel: [phone] [place] [address] [id number]: Anna Culver WPtel: [phone] [place] [address] [id number]: Anna Culver WPtel: [phone] [place] [address] [id number]/Appointment: Anna Culver WPtel: [phone] [place] [address] [place] [address] [id number]: Anna Culver WPtel: [phone] [place] [address] [place] [address] [id number]: Anna Culver WPtel: [phone] [place] [address] [id number]: PalomoVamsiAnna WPtel: [phone] [address] [id number]: Vamsi Culverelle WPtel: [phone] [address] [id number]: Palomo Anna WPtel: [phone] [place] [address] [id number]: Palomo Anna WPtel: [phone] [place] [address] [id number]: Sudha Hernadez WPtel: [facility] [address] [id number]: Sudha Hernadez WPtel: [address] [facility] [id number]: Sandip Charlene WPtel: [address] [facility] [id number]: Enedelia DelgadoAppointment: TerellandersCahrlene WPtel: [address] [facility] [address] [id number]: Javy Rasta WPtel: [address] [facility] [address] [id number]: Javy Rasta WPtel: [address] [facility] [address] [id number]: Javy Rasta WPtel: [address] [facility] [address] [id number]: Rasta Palafox WPtel: [address] [facility] [address] [id number]: Pending Gynecology Referral InformationReferral ProcessedReferral: Pending Pulmonology Referral InformationReferralProcessed Referral: Pending Psychiatry Referral InformationReferralInitiatedReferral: Pending Respiratory Services Referral InformationReferralInitiatedReferral: Pending Ophthalmology Referral InformationReferralInitiatedReferral: [facility] WPtel: [address] [facility] [address] [facility] USWriter placed a call out to the patient to notify her that it has been recommended that she be seenby a urologist. Patient agreed to be seen, does not have a provider of choice and no transportationissues. [employer] faxed referral and clinical notes to [facility] in [place], [place] near the patient's home. Patient to [...] seen and prefers a provider in the [place] or [facility]. [employer] placed a call out to everyone listed in the area and the only location that was able to accept the patient's insurance was [address] [address] and spoke with Maylin. Maylin asked that the patient's referral, face sheet and visit notes be faxed to . [employer] faxed over requested documents. Patient appointment confirmation letter generated and mailed to her home address. Patient to call to schedule an appointment.ProcessedReferral: [facility] WPtel: [address] [place], [place] [id number] USPatient notified that it has been advised that she be seen by Neurology. Patient agreed to be seen and prefers to be seen by a provider in the [place], [place] area. Patient denies any concerns with transportation, and prefers to schedule her own appointment. [employer] placed a call out to [facility] and spoke with [...] ? . Video and audio call using [employer] J24.9-323.9 Upper respiratory infection prescription for sudafed sent yesterday-patient denies getting indicating it went to [facility]-shepicked up Tylenol Cold and Sinus OTC discussed [...] - 05/20/2021 Hemoglobin A1C 5.4; stable 10/17/2019 [place] Fany 7/10-instructed on good daily foot care [...] [facility] 06/09/2021 advised to notify office for persistent or worsening symptoms F43.23-309.28 Adjustment disorder with mixed anxiety and depressed mood reviewed previously discussed stress management routine follow up [place] [facility] 03/13/2021 PHQ 9 Score 4 Sertraline 200mg daily 04/01/2021 Functional Assessment independent with ADLs R63.0-783.0 Anorexia symptoms persistent advised to continue to try small, more frequent food intake, discussed limiting carbonated beverages as this may make her feel full taking away appetite discussed benefits of [place] [employer] Breakfast not using note weight has remained stable over the past couple months-will continue to monitor I10-401.9 Essential (primary) hypertension I11.0-402.91 Hypertensive heart disease with heart failure cont hctz and lisinipril 04/01/2021 HTN assessment complete discussed lifestyle modification including weight loss and limiting sodium intake 05/20/2021 GFR >60 [place] lab didn't provide exact number 05/14/2020 EKG [...] new appt for pap in June 2020-[facility]-reports pap negative-recordsrequested Z01.89-V72.85 Encounter for screening for [...]
--- OUTSIDE RECORDS SUMMARY | 2023-12-07 02:17 | XMS_ITS | CCD ---
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 Underwriting Technician Name Role Phone Palomo KING, Anna Primary Care Provider Unav ailable Unavailable Chronic Care Management Unavaila ble Summary Purpose DataExchange Insurance Providers Payer name Policy type / Coverage type Covered green party ID Effective Begin Date Effective End Date [facility] [id number] Unknown Unknown Family history Mother Diagnosis Age [...] 05/31/2018 Education level Unknown Some High School 10th05/31/20181601JstqkzcbusNvtvksvUyuexqfrvi28/29/2018Tobacco historySNOMED CT: 962840647Ayt never smoked or chewed [id number]/31/2018Alcohol historySNOMED CT: 734743582Dkwec drinks xbprzjb7905/31/2018Has the patient ever used illegal drugs? UnknownHas never used illegal drugs05/31/2018DNR Order/ Advanced Directive UnknownFull Code05/31/2018 Allergies, Adverse Reactions, Alerts Substance Reaction Codes Entered Date Inactivated Date Status OxyContin itch, RxNorm: 258964 01/13/2021 No Inactive Da te Active *No known food allergies Mqdexnx6309/06/2018No Inactive DateActiveMethylprednisolonehivesRxNorm: 6902 09/06/2018No Inactive DateActive Problems Condition Codes Effective Dates Condition St atus Chronic kidney disease, stage 2 (mild) I CD-10: N18.2 ICD-9: 585.ctiveFamily history of seizuresICD-10: Z84.89 ICD-9: V19.807/ctiveHypertensive heart disease with heart failureICD-10: I11.0 ICD-9: 402.9107/ActiveSyncope and collapseICD-10: R55 ICD-9: 780.ActiveType 2 diabetes mellitus with peripheral neuropathy ICD-10: E11.42 ICD-9: 250.6002/ActiveAnorexiaICD-10: R63.0 ICD-9: 783.003/ctiveAdjustment disorder with mixed anxiety and depressed moodICD-10: F43.23 ICD-9: 309.2812/01/2018ActivePost-traumatic stress disorder, unspecifiedICD-10: F43.10 ICD-9: 309.8112ActiveBlisterICD-10: T14.8XXA ICD-9: 919.206ctiveObstructive sleep apnea (adult) (pediatric)ICD-10: [...] Encounter for screening for depressionICD-10: Z13.31 ICD-9: V79.004/13/2021ActiveEncounter for immunizationICD-10: Z23 ICD-9: V04.8109/06/2020InactiveEssential (primary) hypertensionICD-10: I10 ICD-9: 401.901/10/2018InactiveApnea, not elsewhere classifiedICD-10: R06.81 ICD-9: 786.0305/10/2018InactiveChest pain, unspecifiedICD-10: R07.9 ICD-9: 786.5002/InactiveChronic kidney disease, unspecifiedICD-10: N18.9 ICD-9: 585.909/InactiveDiarrheaICD-10: R19.7 ICD-9: 787.9112InactiveEncounter for immunizationICD-10: Z23 ICD-9: V03.907/InactiveEncounter for preprocedural cardiovascular examinationICD-10: Z01.810 ICD-9: V72.8106/InactiveHeadacheICD-10: R51 ICD-9: 784.001/10/2018InactiveOther 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 (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ICD-10: Z79.899 ICD-9: V58.6907/InactiveType 2 [...] SeenICD-10: UXZ.01 ICD-9: XZ0.107ActiveDyspnea, unspecifiedICD-10: R06.00 ICD-9: 786.0905ActiveAbnormal electrocardiogram [ECG] [EKG]ICD-10: R94.31 ICD-9: 794.3108ActiveEdema, unspecifiedICD-10: R60.9 ICD-9: 782.310/06/2018ActiveLong term (current) use of non-steroidal anti- inflammatories (NSAID)ICD-10: Z79.1 ICD-9: V58.64006/13/2018Active Medications Medication Codes Instructions Start Date Stop Date Status Fill Instructions Sudafed 12 Hour 120 mg tablet,extended release RxNorm: 4120635 TAKE 1 TABLET BY MOUTH EVERY 12 HOURS NEEDED 06/01/20 21 2021 Inactive Heartburn Relief (famotidine) 10 mg tablet RxNorm: 554496 Take 1 Tablet(s) Oral every morning 05/07/20 21 2020 Inactive omeprazole 20 mg capsule,delayed release RxNorm: 715189 1 Capsule(s) Oral every evening 04/03/20 21 2020 Inactive sertraline 100 mg tablet RxNorm: 713615 2 Tablet(s) Oral every day 03/13/20 21 2020 Inactive levothyroxine 50 mcg tablet RxNorm: 655447 TAKE (1) TABLET BY MOUTH DAILY 02/04/20 21 2020 Inactive metformin 500 mg tablet RxNorm: 573929 1 Tablet(s) Oral two times a day take with 500mg to equal 1000mg 01/14/20 21 2020 Inactive gabapentin 300 mg capsule RxNorm: 443689 TAKE 1 CAPSULE BY MOUTH THREE TIMES A DAY 01/14/20 21 2020 Inactive lisinopril 2.5 mg tablet RxNorm: 788427 TAKE 1 TABLET BY MOUTH DAILY 01/06/202020 Inactive gabapentin 300 mg capsule RxNorm: 236893 TAKE 1 CAPSULE BY MOUTH THREE TIMES A DAY 01/06/20 21 2020 Inactive Singulair 10 mg tablet RxNorm: 681937 TAKE (1) TABLET BY MOUTH DAILY 01/06/20 21 2020 Inactive metformin 1,000 mg tablet RxNorm: 279405 1 Tablet(s) Oral two times a day 01/06/20 21 2020 Inactive atorvastatin 40 mg tablet RxNorm: 304478 1 Tablet(s) Oral every day 12/06/19 21 2020 Inactive omeprazole 20 mg capsule,delayed release RxNorm: 470252 1 Capsule(s) Oral every evening 11/24/19 21 2020 Inactive famotidine 10 mg tablet RxNorm: 303054 1 Tablet(s) Oral every morning 11/24/19 21 2020 Inactive Alcohol Prep Pads RxNorm: 642595 USE EACH MORNING 10/14/19 21 2020 Inactive omeprazole 20 mg capsule,delayed release RxNorm: 452187 1 Capsule(s) Oral two times a day 10/13/19 21 2021 Inactive omeprazole 20 mg capsule,delayed release RxNorm: 998502 TAKE 1 CAPSULE BY MOUTH EVERY DAY 10/08/192021 Inactive Macrobid 100 mg capsule RxNorm: 984901 1 Capsule(s) Oral every 12 hours with food 10/01/202020 Inactive omeprazole 20 mg capsule,delayed release RxNorm: 802728 1 Capsule(s) Oral two times a day 09/24/20 20 2021 Inactive metformin 1,000 mg tablet RxNorm: 846845 1 Tablet(s) Oral two times a day 08/19/20 20 2020 Inactive start on September 11, 2020 metformin 500 mg tablet RxNorm: 088822 1 Tablet(s) Oral two times a day take with 500mg to equal 1000mg 08/19/20 20 2019 Inactive gabapentin 300 mg capsule RxNorm: 658274 TAKE 1 CAPSULE BY MOUTH THREE TIMES DAILY 07/11/20 20 2020 Inactive cetirizine 10 mg tablet RxNorm: 2946088 TAKE (1) TABLET BY MOUTH DAILY 07/11/20 20 2020 Inactive metformin 500 mg tablet RxNorm: 614668 1 Tablet(s) Oral two times a day 07/08/20 20 2019 Inactive loperamide 2 mg tablet RxNorm: 017989 1 Tablet(s) Oral as needed take one tablet after each loose stool, maximum of 8 tablets in 24 hours 06/24/20 20 2021 Inactive Sudafed 12 Hour 120 mg tablet,extended release RxNorm: 7999158 TAKE 1 TABLET BY MOUTH EVERY 12 HOURS NEEDED 06/11/20 2019 Inactive hydrochlorothiazide 25 mg tablet RxNorm: 286296 TAKE (1) TABLET BY MOUTH EVERY DAY 06/11/20 20 2019 Inactive omeprazole 20 mg capsule,delayed release RxNorm: 669685 TAKE 1 CAPSULE BY MOUTH EVERY DAY 05/14/20 20 2020 Inactive metformin 500 mg tablet RxNorm: 210777 1 Tablet(s) Oral every day 05/12/20 20 2019 Inactive True Metrix Glucose Test Strip RxNorm: 1 Test Strips Miscellaneous two times a day as needed 04/17/20 No Stop Date Active metformin 500 mg tablet RxNorm: 433124 1 Tablet(s) Oral every day 04/17/20 20 2019 Inactive diclofenac sodium 75 mg tablet,delayed release RxNorm: 103749 1 Tablet(s) PO BID 04/14/20 20 2021 Inactive This refill negates all other refills of this medication Sudafed 12 Hour 120 mg tablet,extended release RxNorm: 8780568 TAKE 1 TABLET BY MOUTH EVERY 12 HOURS NEEDED 03/14/20 20 2019 Inactive True Metrix Glucose Test Strip RxNorm: 1 Test Strips Miscellaneous every morning 03/13/20 20 2019 Inactive 100/container True Metrix Glucose Test Strip RxNorm: 1 Test Strips Miscellaneous QA 02/22/20 20 2019 Inactive 100/container loperamide 2 mg tablet RxNorm: 549139 1 Tablet(s) Oral as needed take one tablet after each loose stool, maximum of 8 tablets in 24 hours 02/22/20 20 2019 Inactive cetirizine 10 mg tablet RxNorm: 4537035 1 Tablet(s) PO daily 01/17/20 20 2019 Inactive loperamide 2 mg tablet RxNorm: 492654 1 Tablet(s) Oral as needed take one tablet after each loose stool, maximum of 8 tablets in 24 hours 01/17/20 20 2019 Inactive quetiapine 100 mg tablet RxNorm: 122452 1 Tablet(s) Oral every night at bedtime 01/17/20 20 2019 Inactive levothyroxine 50 mcg tablet RxNorm: 192766 1 Tablet(s) PO daily 01/17/20 20 2020 Inactive gabapentin 300 mg capsule RxNorm: 272119 1 Capsule(s) PO TID 01/17/20 20 2019 Inactive levothyroxine 50 mcg tablet RxNorm: 666745 1 Tablet(s) PO daily 01/15/20 20 2019 Inactive lisinopril 2.5 mg tablet RxNorm: 955045 1 Tablet(s) PO daily 01/15/20 20 2020 Inactive gabapentin 300 mg capsule RxNorm: 993033 1 Capsule(s) PO TID 01/15/20 20 2019 Inactive cetirizine 10 mg tablet RxNorm: 0625265 1 Tablet(s) PO daily 01/15/20 20 2019 Inactive Singulair 10 mg tablet RxNorm: 585468 1 Tablet(s) PO daily 01/15/20 20 2020 Inactive gentamicin 0.3 % eye drops RxNorm: 286327 1 Drop(s) ophthalmic (eye) four times a day 12/29/19 20 2019 Inactive gentamicin 0.3 % eye drops RxNorm: 691639 1 Drop(s) ophthalmic (eye) four times a day 12/29/19 20 2019 Inactive gentamicin 0.3 % eye drops RxNorm: 887226 1 Drop(s) ophthalmic (eye) four times a day 12/29/19 20 2019 Inactive hydrochlorothiazide 25 mg tablet RxNorm: 594193 1 Tablet(s) Oral every day 12/21/19 20 2019 Inactive Sudafed 12 Hour 120 mg tablet,extended release RxNorm: 9407109 TAKE (1) TABLET BY MOUTH EVERY 12 HOURS NEEDED 12/21/19 20 2019 Inactive loperamide 2 mg tablet RxNorm: 510719 1 Tablet(s) Oral as needed take one tablet after each loose stool, maximum of 8 tablets in 24 hours 12/11/19 20 2019 Inactive loperamide 2 mg tablet RxNorm: 181265 1 Tablet(s) Oral as needed take one tablet after each loose stool, maximum of 8 tablets in 24 hours 12/11/19 20 2019 Inactive atorvastatin 40 mg tablet RxNorm: 103231 1 Tablet(s) Oral every day 11/29/19 20 2020 Inactive quetiapine 100 mg tablet RxNorm: 267085 1 Tablet(s) Oral every night at bedtime 11/28/19 20 2019 Inactive sertraline 100 mg tablet RxNorm: 542175 1 Tablet(s) Oral 11/28/19 20 2019 Inactive omeprazole 20 mg capsule,delayed release RxNorm: 244876 1 Capsule(s) Oral every day 11/20/19 20 2019 Inactive amoxicillin 250 mg capsule RxNorm: 887115 1 Capsule(s) Oral three times a day 11/07/19 20 2019 Inactive multivitamin with iron-mineral tablet RxNorm: 1 Tablet(s) Oral every day 10/29/19 20 2021 Inactive cetirizine 10 mg tablet RxNorm: 9022517 1 Tablet(s) PO daily 10/20/19 20 2019 Inactive This refill negates all other refills of this medication. Please do not auto refill Singulair 10 mg tablet RxNorm: 261724 1 Tablet(s) PO daily 10/20/19 20 2019 Inactive This refill negates all other refills of this medication gabapentin 300 mg capsule RxNorm: 075704 1 Capsule(s) PO TID 10/20/19 20 2019 Inactive lisinopril 2.5 mg tablet RxNorm: 989066 1 Tablet(s) PO daily 10/20/19 20 2019 Inactive levothyroxine 50 mcg tablet RxNorm: 608067 1 Tablet(s) PO daily 10/20/19 20 2019 Inactive This refill negates all other refills of this medication fenugreek seed extract 500 mg capsule RxNorm: 1 Capsule(s) Oral three times a day 10/17/19 20 2021 Inactive hydrochlorothiazide 25 mg tablet RxNorm: 027147 1 Tablet(s) Oral every day 10/17/19 20 2019 Inactive Alcohol Prep Pads RxNorm: 378940 1 Patch TOP QAM 10/16/19 20 2020 Inactive loperamide 2 mg tablet RxNorm: 496544 1 Tablet(s) Oral as needed take one [...] 2019 Inactive hydrochlorothiazide 25 mg tablet RxNorm: 904106 1 Tablet(s) Oral every day 09/19/20 19 2019 Inactive Sudafed 12 Hour 120 mg tablet,extended release RxNorm: 2326276 1 Tablet(s) Oral every 12 hours as needed 09/11/20 19 2018 Inactive omeprazole 20 mg capsule,delayed release RxNorm: 812009 1 Capsule(s) Oral every day 09/07/20 19 2019 Inactive Sudafed 12 Hour 120 mg tablet,extended release RxNorm: 5859331 1 Tablet(s) Oral every 12 hours as needed 09/04/20 19 2018 Inactive pantoprazole 40 mg tablet,delayed release RxNorm: 018839 1 Tablet(s) Oral every day 08/24/20 19 2018 Inactive discontinue any other H2Blkr. and PPI albuterol sulfate 2.5 mg/3 mL (0.083 %) solution for nebulization RxNorm: 933031 1 Vial Inhalation every four hours as needed as needed for dyspnea 08/17/20 19 2019 Inactive 60/box. This refill negates all other refills of this medication. Please do not fill early. Please do not auto refill. Symbicort 160 mcg-4.5 mcg/actuation HFA aerosol inhaler RxNorm: 5043992 2 Puff(s) INH BID 08/17/20 19 No Stop Date Active Alcohol Prep Pads RxNorm: 833898 1 Patch TOP QAM 08/17/20 19 2019 Inactive Ventolin HFA 90 mcg/actuation aerosol inhaler RxNorm: 357813 2 Puff(s) INH QID 08/09/20 19 2019 Inactive Please do not fill early. Please do not auto refill. This refill negates all other refills of this medication True Metrix Glucose Test Strip RxNorm: 1 Test Strips Miscellaneous QAM 08/09/20 19 2019 Inactive 100/container atorvastatin 40 mg tablet RxNorm: 345480 1 Tablet(s) Oral every day 07/04/20 19 2019 Inactive levmetamfetamine 50 mg nasal inhaler RxNorm: 1 Unit(s) NASAL Q3-4H Do not use more than every 3 hours or 8 times/24hours 06/26/20 19 2021 Inactive Please do not auto refill. This refill negates all other refills of this medication buspirone 7.5 mg tablet RxNorm: 300695 1 Tablet(s) PO BID 06/26/20 19 2020 Inactive This refill negates all other refills of this medication hydrochlorothiazide 12.5 mg tablet RxNorm: 725373 1 Tablet(s) PO QAM 06/26/20 19 2019 Inactive Ventolin HFA 90 mcg/actuation aerosol inhaler RxNorm: 978256 2 Puff(s) INH QID 06/26/20 19 2018 Inactive Please do not fill early. Please do not auto refill. This refill negates all other refills of this medication Singulair 10 mg tablet RxNorm: 030852 1 Tablet(s) PO daily 06/26/20 19 2019 Inactive This refill negates all other refills of this medication cetirizine 10 mg tablet RxNorm: 2407167 1 Tablet(s) PO daily 06/26/20 19 2019 Inactive This refill negates all other refills of this medication. Please do not auto refill levothyroxine 50 mcg tablet RxNorm: 175261 1 Tablet(s) PO daily 06/26/20 19 2019 Inactive This refill negates all other refills of this medication diclofenac sodium 75 mg tablet,delayed release RxNorm: 768159 1 Tablet(s) PO BID 06/26/20 19 2019 Inactive This refill negates all other refills of this medication ranitidine 150 mg tablet RxNorm: 178589 1 Tablet(s) PO BID 06/26/20 19 2018 Inactive This refill negates all other refills of this medication Calcium 600-D3 Plus (mag-zinc) 600 mg calcium-800 unit-50 mg tablet RxNorm: 1 Tablet(s) PO daily take an additonal tablet for itching. 06/26/20 19 2018 Inactive This refill negates all other refills of this medication albuterol sulfate 2.5 mg/3 mL (0.083 %) solution for nebulization RxNorm: 287099 1 Vial INH QID 06/26/20 19 2018 Inactive 60/box. This refill negates all other refills of this medication. Please do not fill early. Please do not auto refill. lisinopril 2.5 mg tablet RxNorm: 346671 1 Tablet(s) PO daily 06/21/20 19 2019 Inactive gabapentin 300 mg capsule RxNorm: 253399 1 Capsule(s) PO TID 06/21/20 19 2019 Inactive atorvastatin 20 mg tablet RxNorm: 424159 1 Tablet(s) PO QHS 06/07/20 19 2018 Inactive This refill negates all other refills of this medication TRUEplus Lancets 30 gauge RxNorm: 1 Lancets Miscellaneous QAM 05/29/20 19 2018 Inactive 100/box gabapentin 300 mg capsule RxNorm: 906964 1 Capsule(s) PO TID 05/03/20 19 2018 Inactive Flintstones Complete (iron) 18 mg iron chewable tablet RxNorm: 1 Tablet(s) PO daily 04/04/20 19 2021 Inactive This refill negates all other refills of this medication gabapentin 300 mg capsule RxNorm: 309822 1 Capsule(s) PO TID as needed 02/01/20 19 2018 Inactive True Metrix Glucose Test Strip RxNorm: 1 Test Strips Miscellaneous QA 02/01/20 19 2018 Inactive 100/container Alcohol Prep Pads RxNorm: 602922 1 Patch TOP QA 02/01/20 19 2018 Inactive TRUEplus Lancets 30 gauge RxNorm: 1 Lancets Miscellaneous QAM 02/01/20 19 2018 Inactive 100/box lisinopril 2.5 mg tablet RxNorm: 152472 1 Tablet(s) PO daily 12/28/19 19 2018 Inactive ranitidine 150 mg tablet RxNorm: 709848 1 Tablet(s) PO BID 10/21/192018 Inactive This refill negates all other refills of this medication albuterol sulfate 2.5 mg/3 mL (0.083 %) solution for nebulization RxNorm: 693529 1 Vial INH QID 10/21/192018 Inactive 60/box. [...] this medication gabapentin 300 mg capsule RxNorm: 564746 1 Capsule(s) PO TID as needed 10/21/192018 Inactive atorvastatin 20 mg tablet RxNorm: 031444 1 Tablet(s) PO QHS 10/21/192018 Inactive This refill negates all other refills of this medication trazodone 50 mg tablet RxNorm: 161973 1 Tablet(s) PO QHS 10/21/19 19 2018 Inactive This refill negates all other refills of this medication Ventolin HFA 90 mcg/actuation aerosol inhaler RxNorm: 947732 2 Puff(s) INH QID 10/21/192018 Inactive Please do not fill early. Please do not auto refill. This refill negates all other refills of this medication Calcium 600-D3 Plus 600 mg calcium-800 unit-50 mg tablet RxNorm: 1 Tablet(s) PO daily take an additonal tablet for itching. 10/21/19 19 2018 Inactive This refill negates all other refills of this medication Singulair 10 mg tablet RxNorm: 873521 1 Tablet(s) PO daily 10/21/192018 Inactive This refill negates all other refills of this medication buspirone 7.5 mg tablet RxNorm: 587357 1 Tablet(s) PO BID 10/21/192018 Inactive This refill negates all other refills of this medication diclofenac sodium 75 mg tablet,delayed release RxNorm: 148598 1 Tablet(s) PO BID 10/21/19 19 2018 Inactive This refill negates all other refills of this medication hydrochlorothiazide 12.5 mg tablet RxNorm: 774563 1 Tablet(s) PO QAM 10/21/19 19 2018 Inactive metoprolol succinate ER 50 mg tablet,extended release 24 hr RxNorm: 043328 1 Tablet(s) PO daily 10/21/192018 Inactive This refill negates all other refills of this medication levothyroxine 50 mcg tablet RxNorm: 236857 1 Tablet(s) PO daily 10/21/192018 Inactive This refill negates all other refills of this medication cetirizine 10 mg tablet RxNorm: 2877046 1 Tablet(s) PO daily 10/21/192018 Inactive This refill negates all other refills of this medication. Please do not auto refill Flintstones Complete (iron) 18 mg iron chewable tablet RxNorm: 1 Tablet(s) PO daily 10/21/192018 Inactive This refill negates all other refills of this medication buspirone 7.5 mg tablet RxNorm: 809108 1 Tablet(s) PO BID 10/12/19 19 2018 Inactive cetirizine 10 mg tablet RxNorm: 4375093 1 Tablet(s) PO daily 09/28/20 18 2018 Inactive Guaiasorb DM 10 mg-100 mg/5 mL oral liquid RxNorm: 885639 10 Milliliter(s) PO As needed every 4 hr 09/24/20 18 2018 Inactive Tatiana Vaporub 4.7 %-1.2 %-2.6 % topical ointment RxNorm: 5923191 1 Application TOP TID 09/24/20 18 2018 Inactive levmetamfetamine 50 mg nasal inhaler RxNorm: 1 Unit(s) NASAL Q3-4H 09/24/20 18 2017 Inactive sertraline 50 mg tablet RxNorm: 867995 1 Tablet(s) PO daily 09/09/20 18 2018 Inactive Please note dose trazodone 50 mg tablet RxNorm: 259145 1 Tablet(s) PO QHS 09/06/20 18 2018 Inactive sertraline 50 mg tablet RxNorm: 432863 1 Tablet(s) PO daily 09/06/20 18 2017 Inactive amoxicillin 500 mg tablet RxNorm: 516552 1 Tablet(s) PO Q12H 08/31/20 18 2017 Inactive albuterol sulfate 2.5 mg/3 mL (0.083 %) solution for nebulization RxNorm: 608654 1 Vial INH QID 08/10/202018 Inactive 60/box. Please do not fill early. Please do not auto refill. Prozac 10 mg capsule RxNorm: 594635 1 Capsule(s) PO daily 08/09/20 18 2017 Inactive buspirone 7.5 mg tablet RxNorm: 083858 1 Tablet(s) PO BID 08/09/20 18 2018 Inactive gabapentin 300 mg capsule RxNorm: 127052 1 Capsule(s) PO TID as needed 08/01/202018 Inactive hydrochlorothiazide 12.5 mg tablet RxNorm: 754490 1 Tablet(s) PO QAM 08/01/20 18 2018 Inactive ranitidine 150 mg tablet RxNorm: 766854 1 Tablet(s) PO BID 08/01/20 18 2018 Inactive Macrobid 100 mg capsule RxNorm: 610619 1 Capsule(s) PO Q12H 06/21/20 18 2017 Inactive Singulair 10 mg tablet RxNorm: 374976 1 Tablet(s) PO daily 06/14/20 18 2018 Inactive Ventolin HFA 90 mcg/actuation aerosol inhaler RxNorm: 5362801 2 Puff(s) INH QID 06/14/20 18 2018 Inactive Singulair 10 mg tablet RxNorm: 781206 1 Tablet(s) PO daily 06/14/20 18 2017 Inactive buspirone 7.5 mg tablet RxNorm: 325086 1 Tablet(s) PO BID 06/14/20 18 2017 Inactive Prozac 10 mg capsule RxNorm: 702663 1 Capsule(s) PO daily 06/14/20 18 2017 Inactive Neilmed Pediatric Sinus Rinse Refill packet RxNorm: 1 Unit Dose NASAL PRN 05/31/20 18 2021 Inactive diclofenac sodium 75 mg tablet,delayed release RxNorm: 002796 1 Tablet(s) PO BID 05/31/20 18 2017 Inactive lisinopril 2.5 mg tablet RxNorm: 513857 1 Tablet(s) PO daily 05/31/20 18 2017 Inactive metoprolol succinate ER 50 mg tablet,extended release 24 hr RxNorm: 864593 1 Tablet(s) PO daily 05/31/20 18 2017 Inactive levothyroxine 50 mcg tablet RxNorm: 667682 1 Tablet(s) PO daily 05/31/20 18 2017 Inactive TRUEplus Lancets 30 gauge RxNorm: 1 Lancets Miscellaneous QAM 05/31/20 18 2017 Inactive 100/box Ventolin HFA 90 mcg/actuation aerosol inhaler RxNorm: 378720 2 Puff(s) INH QID 05/31/20 18 2017 Inactive Aleve 220 mg capsule RxNorm: 7544221 1 Capsule(s) PO BID 05/31/20 18 2018 Inactive ranitidine 150 mg tablet RxNorm: 046792 1 Tablet(s) PO BID 05/31/20 18 2017 Inactive gabapentin 300 mg capsule RxNorm: 705771 1 Capsule(s) PO TID as needed 05/31/20 18 2017 Inactive atorvastatin 20 mg tablet RxNorm: 540686 1 Tablet(s) PO QHS 05/31/20 18 2017 Inactive True Metrix Glucose Test Strip RxNorm: 1 Test Strips Miscellaneous [facility] 05/31/20 18 2017 Inactive 50/container Calcium 600-D3 Plus 600 mg calcium-800 unit-50 mg tablet RxNorm: 1 Tablet(s) PO daily take an additonal tablet for itching. 05/31/20 18 2017 Inactive hydrochlorothiazide 12.5 mg tablet RxNorm: 901404 1 Tablet(s) PO QAM 05/31/20 18 2017 Inactive Flintstones Complete (iron) 18 mg iron chewable tablet RxNorm: 1 Tablet(s) PO daily 05/31/20 18 2017 Inactive d-mannose oral powder RxNorm: PO 18 2021 Inactive True Metrix Glucose Meter RxNorm: miscellaneous 08/17/20 19 2018 Inactive sertraline 50 mg tablet RxNorm: 929175 1 Tablet(s) PO daily 11/28/19 20 2019 Inactive loperamide 2 mg tablet RxNorm: 458919 oral 09/29/20 19 2018 Inactive Symbicort 160 mcg-4.5 mcg/actuation HFA aerosol inhaler RxNorm: 1657308 2 Puff(s) INH BID 08/17/20 19 2018 [...] VACP 1 Fall Risk Assessment SNOMED CT: 25146593 4 CPT-4: DFRA1Semmes Fany AssessmentCPT-4: DSWA12/17/2020Urinalysis, dip stickCPT-4: 138465609/24/2020Patient Health QuestionnaireCPT-4: DPHQ 08/19/2020ElectrocardiogramCPT-4: 790833205/14/2020Tobacco Assessment/Screening CPT-4: TCA01/01/2020Fall Risk AssessmentSNOMED CT: 065318892 CPT-4: DFRA01/01/2020Functional AssessmentCPT-4: DFA01/01/2020[place] Fany AssessmentCPT-4: DSWA11/28/2019Patient Health QuestionnaireCPT-4: DPHQ11/28/2019 [place] Fany AssessmentCPT-4: DS10/17/2019HypertensionCPT-4: HTN10/17/[address]: 284589156 CPT-4: DFRA09/19/2019Functional AssessmentCPT-4: DFA111/20/2018Urinalysis, dip stickCPT-4: 574650506/21/2019Tobacco Assessment/ScreeningCPT-4: TCA05/24/2019 Patient Health QuestionnaireCPT-4: DPHQ05/24/2019AHA/REBECCA Classification AssessmentCPT-4: DAHA04/25/2019Controlled Substance ReportCPT-4: CTRSU04/25/2019 Urinalysis, dip stickCPT-4: 892047703/28/2019Urinalysis, dip stickCPT-4: 10215 03/28/20190674N4U-BwdgpntvrweuoqpGTX-8: 82816DxeetsdI9H-QpfqownqulttbziCKI-2: 71171 QruopglB7P-NbqwpnvrexjyjnoLFX-2: 25804GzwbnalM3I-BvlnnjlndxxloncVPE-7: 21083 MbocbihU7T-XhizuajjjdkjwnfVOG-5: 09197HfnlacsB0D-KmbtkeyqnznuyhlHEZ-8: 17933 MjrrwhnP9I-MxsksqkuyuuztdnKFY-4: 18566QthbqrtFyfgepuavj ReferralSNOMED CT: 935902130 CPT-4: T55Upctpas Reason For Visit No Reason For Visit data Plan of Care Planned Activity Notes Codes Status Date Referral: Pending Gynecology Referral Informatio n Referral ProcessedReferral: Pending Pulmonology Referral InformationReferralProcessed Referral: Pending Psychiatry Referral InformationReferralInitiatedReferral: Pending Respiratory Services Referral InformationReferralInitiatedReferral: Pending Ophthalmology Referral InformationReferralInitiatedReferral: [facility] WPtel: [address] [id number] [employer]Writer placed a call out to the patient to notify her that it has been recommended that she be seenby a urologist. Patient agreed to be seen, does not have a provider of choice and no transportationissues. [employer] faxed referral and clinical notes to [facility] in [place], [place] near the patient's home. Patient [...] seen and prefers a provider in the [place] or [place] area. [employer] placed a call out to everyone listed in the area and the only location that was able to accept the patient's insurance was [address] [address] [place] [id number] and spoke with Maylin. Maylin asked that the patient's referral, face sheet and visit notes be faxed to . [employer] faxed over requested documents. Patient appointment confirmation letter generated and mailed to her home address. Patient to call to schedule an appointment.ProcessedReferral: [facility] WPtel: [address] [facility] [address] [id number] USPatient notified that it has been advised that she be seen by Neurology. Patient agreed to be seen and prefers to be seen by a provider in the [place], [place] area. Patient denies any concerns with transportation, and prefers to schedule her own appointment. [employer] [employer] placed a call out to [facility] [...]
--- OUTSIDE RECORDS SUMMARY | 2023-12-07 02:18 | XMS_ITS | CCD ---
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 [facility] Worker Name Role Phone Palomo KING, Anna Primary Care Provider Unav ailable Unavailable Chronic Care Management Unavaila ble Summary Purpose DataExchange Insurance Providers Payer name Policy type / Coverage type Covered libertarian ID Effective Begin Date Effective End Date [facility] [id number] Unknown Unknown Family history Mother Diagnosis Age [...] 05/31/2018 Education level Unknown Some High School 10th05/31/20188887AgtslinvixNpmlicbLjqxmhjhbl17/29/2018Tobacco historySNOMED CT: 712120219Fxt never smoked or chewed zelashr4305/31/2018Alcohol historySNOMED CT: 540832188Epfkw drinks zxlkwly6905/31/2018Has the patient ever used illegal drugs? UnknownHas never used illegal drugs05/31/2018DNR Order/ Advanced Directive UnknownFull Code05/31/2018 Allergies, Adverse Reactions, Alerts Substance Reaction Codes Entered Date Inactivated Date Status OxyContin itch, RxNorm: 189043 01/13/2021 No Inactive Da te Active *No known food allergies Shkidsw3309/06/2018No Inactive DateActiveMethylprednisolonehivesRxNorm: 6902 09/06/2018No Inactive DateActive Problems Condition Codes Effective Dates Condition St atus Type 2 diabetes mellitus with peripheral neuropathy ICD-10: E11.42 ICD-9: 250.60011/28/2019ActivePatient not seenICD-10: UXZ.01 ICD-9: UXZ.0112/09/2021ActiveDiarrheaICD-10: R19.7 ICD-9: 787.9111/1ActiveGERD (gastroesophageal reflux disease)ICD-10: K21.9 ICD-9: 530.8112/03/2019ActiveHyperlipidemia, unspecifiedICD-10: E78.5 ICD-9: 272.408/ActiveDyspnea, unspecifiedICD-10: R06.00 ICD-9: 786.0905/06/2019ActiveAdjustment disorder with mixed anxiety and depressed moodICD-10: [...] examinationICD-10: Z01.810 ICD-9: V72.8106/InactiveHeadacheICD-10: R51 ICD-9: 784.001InactiveOther mcc (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ICD-10: Z79.899 ICD-9: V58.6907/InactiveType 2 [...] Instructions omeprazole 20 mg capsule,delayed release RxNorm: 202826 Take 1 Capsule(s) Oral every evening 09/22/20 21 2020 Inactive Ozempic 0.25 mg or 0.5 mg (2 mg/1.5 mL) subcutaneous pen injector RxNorm: 5758421 Take 0.25 Milligram(s) Subcutaneous once a week 09/11/202021 Inactive Easy Touch Alcohol Prep Pads RxNorm: 868092 USE DIRECTED EACH MORNING 09/03/20 21 2021 Inactive Probiotic 10 billion cell capsule RxNorm: 7549634 Take 1 Capsule(s) Oral every day 08/13/202021 Inactive levothyroxine 50 mcg tablet RxNorm: 423938 Take 1 Tablet(s) Oral every day 08/13/202020 Inactive Acid Concrete Pile Driver Operator (famotidine) 20 mg tablet RxNorm: 317218 Take 1 Tablet(s) Oral every morning 08/13/202020 Inactive Heartburn Relief (famotidine) 10 mg tablet RxNorm: 853979 Take 1 Tablet(s) Oral QAM 08/07/20 21 2020 Inactive levothyroxine 50 mcg tablet RxNorm: 759795 Take 1 Tablet(s) Oral QD 08/07/20 21 2020 Inactive metformin 1,000 mg tablet RxNorm: 055368 1 Tablet(s) Oral two times a day 07/16/20 21 2021 Inactive Singulair 10 mg tablet RxNorm: 572952 TAKE (1) TABLET BY MOUTH DAILY 07/16/20 21 2020 Inactive lisinopril 2.5 mg tablet RxNorm: 788697 Take 1 Tablet(s) Oral every day 07/11/20 21 2020 Inactive hydrochlorothiazide 25 mg tablet RxNorm: 295702 Take 1 Tablet(s) Oral every day 06/12/20 21 2020 Inactive ondansetron 4 mg disintegrating tablet RxNorm: 550486 1 Tablet(s) Oral two times a day 06/10/20 21 2020 Inactive Sudafed 12 Hour 120 mg tablet,extended release RxNorm: 9357830 TAKE 1 TABLET BY MOUTH EVERY 12 HOURS NEEDED 06/01/20 21 2021 Inactive Heartburn Relief (famotidine) 10 mg tablet RxNorm: 225046 Take 1 Tablet(s) Oral every morning 05/07/20 21 2020 Inactive omeprazole 20 mg capsule,delayed release RxNorm: 923475 1 Capsule(s) Oral every evening 04/03/20 21 2020 Inactive sertraline 100 mg tablet RxNorm: 668270 2 Tablet(s) Oral every day 03/13/20 21 2020 Inactive levothyroxine 50 mcg tablet RxNorm: 160804 TAKE (1) TABLET BY MOUTH DAILY 02/04/20 21 2020 Inactive metformin 500 mg tablet RxNorm: 461118 1 Tablet(s) Oral two times a day take with 500mg to equal 1000mg 01/14/20 21 2020 Inactive gabapentin 300 mg capsule RxNorm: 690762 TAKE 1 CAPSULE BY MOUTH THREE TIMES A DAY 01/14/20 21 2020 Inactive lisinopril 2.5 mg tablet RxNorm: 414614 TAKE 1 TABLET BY MOUTH DAILY 01/06/20 21 2020 Inactive gabapentin 300 mg capsule RxNorm: 037576 TAKE 1 CAPSULE BY MOUTH THREE TIMES A DAY 01/06/20 21 2020 Inactive Singulair 10 mg tablet RxNorm: 720555 TAKE (1) TABLET BY MOUTH DAILY 01/06/20 21 2020 Inactive metformin 1,000 mg tablet RxNorm: 123854 1 Tablet(s) Oral two times a day 01/06/20 21 2020 Inactive atorvastatin 40 mg tablet RxNorm: 989114 1 Tablet(s) Oral every day 12/06/19 21 2020 Inactive omeprazole 20 mg capsule,delayed release RxNorm: 489144 1 Capsule(s) Oral every evening 11/24/19 21 2020 Inactive famotidine 10 mg tablet RxNorm: 640365 1 Tablet(s) Oral every morning 11/24/19 21 2020 Inactive Alcohol Prep Pads RxNorm: 041150 USE EACH MORNING 10/14/19 21 2020 Inactive omeprazole 20 mg capsule,delayed release RxNorm: 899475 1 Capsule(s) Oral two times a day 10/13/19 21 2021 Inactive omeprazole 20 mg capsule,delayed release RxNorm: 575966 TAKE 1 CAPSULE BY MOUTH EVERY DAY 10/08/19 21 2021 Inactive Macrobid 100 mg capsule RxNorm: 779603 1 Capsule(s) Oral every 12 hours with food 10/01/20 20 2020 Inactive omeprazole 20 mg capsule,delayed release RxNorm: 863487 1 Capsule(s) Oral two times a day 09/24/20 20 2021 Inactive metformin 1,000 mg tablet RxNorm: 138739 1 Tablet(s) Oral two times a day 08/19/20 20 2020 Inactive start on September 11, 2020 metformin 500 mg tablet RxNorm: 317900 1 Tablet(s) Oral two times a day take with 500mg to equal 1000mg 08/19/20 20 2019 Inactive gabapentin 300 mg capsule RxNorm: 755939 TAKE 1 CAPSULE BY MOUTH THREE TIMES DAILY 07/11/20 20 2020 Inactive cetirizine 10 mg tablet RxNorm: 0446364 TAKE (1) TABLET BY MOUTH DAILY 07/11/20 20 2020 Inactive metformin 500 mg tablet RxNorm: 129608 1 Tablet(s) Oral two times a day 07/08/20 20 2019 Inactive loperamide 2 mg tablet RxNorm: 910251 1 Tablet(s) Oral as needed take one tablet after each loose stool, maximum of 8 tablets in 24 hours 06/24/20 20 2021 Inactive Sudafed 12 Hour 120 mg tablet,extended release RxNorm: 8151184 TAKE 1 TABLET BY MOUTH EVERY 12 HOURS NEEDED 06/11/20 20 2019 Inactive hydrochlorothiazide 25 mg tablet RxNorm: 831128 TAKE (1) TABLET BY MOUTH EVERY DAY 06/11/20 20 2019 Inactive omeprazole 20 mg capsule,delayed release RxNorm: 940913 TAKE 1 CAPSULE BY MOUTH EVERY DAY 05/14/20 20 2020 Inactive metformin 500 mg tablet RxNorm: 413177 1 Tablet(s) Oral every day 05/12/20 20 2019 Inactive True Metrix Glucose Test Strip RxNorm: 1 Test Strips Miscellaneous two times a day as needed 04/17/20 No Stop Date Active metformin 500 mg tablet RxNorm: 846524 1 Tablet(s) Oral every day 04/17/20 20 2019 Inactive diclofenac sodium 75 mg tablet,delayed release RxNorm: 221192 1 Tablet(s) PO BID 04/14/20 20 2021 Inactive This refill negates all other refills of this medication Sudafed 12 Hour 120 mg tablet,extended release RxNorm: 0233959 TAKE 1 TABLET BY MOUTH EVERY 12 HOURS NEEDED 03/14/20 20 2019 Inactive True Metrix Glucose Test Strip RxNorm: 1 Test Strips Miscellaneous every morning 03/13/20 20 2019 Inactive 100/container True Metrix Glucose Test Strip RxNorm: 1 Test Strips Miscellaneous QA 02/22/20 20 2019 Inactive 100/container loperamide 2 mg tablet RxNorm: 840194 1 Tablet(s) Oral as needed take one tablet after each loose stool, maximum of 8 tablets in 24 hours 02/22/20 20 2019 Inactive cetirizine 10 mg tablet RxNorm: 5034025 1 Tablet(s) PO daily 01/17/20 20 2019 Inactive loperamide 2 mg tablet RxNorm: 683789 1 Tablet(s) Oral as needed take one tablet after each loose stool, maximum of 8 tablets in 24 hours 01/17/20 20 2019 Inactive quetiapine 100 mg tablet RxNorm: 466319 1 Tablet(s) Oral every night at bedtime 01/17/20 20 2019 Inactive levothyroxine 50 mcg tablet RxNorm: 830652 1 Tablet(s) PO daily 01/17/20 20 2020 Inactive gabapentin 300 mg capsule RxNorm: 370063 1 Capsule(s) PO TID 01/17/20 20 2019 Inactive levothyroxine 50 mcg tablet RxNorm: 759817 1 Tablet(s) PO daily 01/15/20 20 2019 Inactive lisinopril 2.5 mg tablet RxNorm: 412446 1 Tablet(s) PO daily 01/15/20 20 2020 Inactive gabapentin 300 mg capsule RxNorm: 456608 1 Capsule(s) PO TID 01/15/20 20 2019 Inactive cetirizine 10 mg tablet RxNorm: 0071226 1 Tablet(s) PO daily 01/15/20 20 2019 Inactive Singulair 10 mg tablet RxNorm: 194682 1 Tablet(s) PO daily 01/15/20 20 2020 Inactive gentamicin 0.3 % eye drops RxNorm: 735508 1 Drop(s) ophthalmic (eye) four times a day 12/29/19 20 2019 Inactive gentamicin 0.3 % eye drops RxNorm: 094189 1 Drop(s) ophthalmic (eye) four times a day 12/29/19 20 2019 Inactive gentamicin 0.3 % eye drops RxNorm: 426132 1 Drop(s) ophthalmic (eye) four times a day 12/29/19 20 2019 Inactive hydrochlorothiazide 25 mg tablet RxNorm: 770887 1 Tablet(s) Oral every day 12/21/19 20 2019 Inactive Sudafed 12 Hour 120 mg tablet,extended release RxNorm: 7757962 TAKE (1) TABLET BY MOUTH EVERY 12 HOURS NEEDED 12/21/19 20 2019 Inactive loperamide 2 mg tablet RxNorm: 408835 1 Tablet(s) Oral as needed take one tablet after each loose stool, maximum of 8 tablets in 24 hours 12/11/19 20 2019 Inactive loperamide 2 mg tablet RxNorm: 238444 1 Tablet(s) Oral as needed take one tablet after each loose stool, maximum of 8 tablets in 24 hours 12/11/19 20 2019 Inactive atorvastatin 40 mg tablet RxNorm: 632622 1 Tablet(s) Oral every day 11/29/19 20 2020 Inactive quetiapine 100 mg tablet RxNorm: 685238 1 Tablet(s) Oral every night at bedtime 11/28/19 20 2019 Inactive sertraline 100 mg tablet RxNorm: 688128 1 Tablet(s) Oral 11/28/19 20 2019 Inactive omeprazole 20 mg capsule,delayed release RxNorm: 342667 1 Capsule(s) Oral every day 11/20/19 20 2019 Inactive amoxicillin 250 mg capsule RxNorm: 273661 1 Capsule(s) Oral three times a day 11/07/19 20 2019 Inactive multivitamin with iron-mineral tablet RxNorm: 1 Tablet(s) Oral every day 10/29/19 20 2021 Inactive cetirizine 10 mg tablet RxNorm: 2056580 1 Tablet(s) PO daily 10/20/19 20 2019 Inactive This refill negates all other refills of this medication. Please do not auto refill Singulair 10 mg tablet RxNorm: 745014 1 Tablet(s) PO daily 10/20/19 20 2019 Inactive This refill negates all other refills of this medication gabapentin 300 mg capsule RxNorm: 821865 1 Capsule(s) PO TID 10/20/19 20 2019 Inactive lisinopril 2.5 mg tablet RxNorm: 151673 1 Tablet(s) PO daily 10/20/19 20 2019 Inactive levothyroxine 50 mcg tablet RxNorm: 169638 1 Tablet(s) PO daily 10/20/19 20 2019 Inactive This refill negates all other refills of this medication fenugreek seed extract 500 mg capsule RxNorm: 1 Capsule(s) Oral three times a day 10/17/19 20 2021 Inactive hydrochlorothiazide 25 mg tablet RxNorm: 691404 1 Tablet(s) Oral every day 10/17/19 20 2019 Inactive Alcohol Prep Pads RxNorm: 831011 1 Patch TOP QAM 10/16/19 20 2020 Inactive loperamide 2 mg tablet RxNorm: 120884 1 Tablet(s) Oral as needed take one [...] 2019 Inactive hydrochlorothiazide 25 mg tablet RxNorm: 533483 1 Tablet(s) Oral every day 09/19/20 19 2019 Inactive Sudafed 12 Hour 120 mg tablet,extended release RxNorm: 1254009 1 Tablet(s) Oral every 12 hours as needed 09/11/20 19 2018 Inactive omeprazole 20 mg capsule,delayed release RxNorm: 167932 1 Capsule(s) Oral every day 09/07/20 19 2019 Inactive Sudafed 12 Hour 120 mg tablet,extended release RxNorm: 1532474 1 Tablet(s) Oral every 12 hours as needed 09/04/20 19 2018 Inactive pantoprazole 40 mg tablet,delayed release RxNorm: 743945 1 Tablet(s) Oral every day 08/24/202018 Inactive discontinue any other H2Blkr. and PPI albuterol sulfate 2.5 mg/3 mL (0.083 %) solution for nebulization RxNorm: 327055 1 Vial Inhalation every four hours as needed as needed for dyspnea 08/17/202019 Inactive 60/box. This refill negates all other refills of this medication. Please do not fill early. Please do not auto refill. Symbicort 160 mcg-4.5 mcg/actuation HFA aerosol inhaler RxNorm: 1277875 2 Puff(s) INH BID 08/17/20 19 No Stop Date Active Alcohol Prep Pads RxNorm: 462684 1 Patch TOP QAM 08/17/20 19 2019 Inactive Ventolin HFA 90 mcg/actuation aerosol inhaler RxNorm: 236924 2 Puff(s) INH QID 08/09/20 19 2019 Inactive Please do not fill early. Please do not auto refill. This refill negates all other refills of this medication True Metrix Glucose Test Strip RxNorm: 1 Test Strips Miscellaneous QAM 08/09/20 19 2019 Inactive 100/container atorvastatin 40 mg tablet RxNorm: 716423 1 Tablet(s) Oral every day 07/04/20 19 2019 Inactive levmetamfetamine 50 mg nasal inhaler RxNorm: 1 Unit(s) NASAL Q3-4H Do not use more than every 3 hours or 8 times/24hours 06/26/20 19 2021 Inactive Please do not auto refill. This refill negates all other refills of this medication buspirone 7.5 mg tablet RxNorm: 011406 1 Tablet(s) PO BID 06/26/20 19 2020 Inactive This refill negates all other refills of this medication hydrochlorothiazide 12.5 mg tablet RxNorm: 410084 1 Tablet(s) PO QAM 06/26/20 19 2019 Inactive Ventolin HFA 90 mcg/actuation aerosol inhaler RxNorm: 081285 2 Puff(s) INH QID 06/26/20 19 2018 Inactive Please do not fill early. Please do not auto refill. This refill negates all other refills of this medication Singulair 10 mg tablet RxNorm: 501318 1 Tablet(s) PO daily 06/26/20 19 2019 Inactive This refill negates all other refills of this medication cetirizine 10 mg tablet RxNorm: 9440412 1 Tablet(s) PO daily 06/26/20 19 2019 Inactive This refill negates all other refills of this medication. Please do not auto refill levothyroxine 50 mcg tablet RxNorm: 737615 1 Tablet(s) PO daily 06/26/20 19 2019 Inactive This refill negates all other refills of this medication diclofenac sodium 75 mg tablet,delayed release RxNorm: 519542 1 Tablet(s) PO BID 06/26/20 19 2019 Inactive This refill negates all other refills of this medication ranitidine 150 mg tablet RxNorm: 145689 1 Tablet(s) PO BID 06/26/20 19 2018 Inactive This refill negates all other refills of this medication Calcium 600-D3 Plus (mag-zinc) 600 mg calcium-800 unit-50 mg tablet RxNorm: 1 Tablet(s) PO daily take an additonal tablet for itching. 06/26/20 19 2018 Inactive This refill negates all other refills of this medication albuterol sulfate 2.5 mg/3 mL (0.083 %) solution for nebulization RxNorm: 642238 1 Vial INH QID 06/26/20 19 2018 Inactive 60/box. This refill negates all other refills of this medication. Please do not fill early. Please do not auto refill. lisinopril 2.5 mg tablet RxNorm: 766825 1 Tablet(s) PO daily 06/21/20 19 2019 Inactive gabapentin 300 mg capsule RxNorm: 709545 1 Capsule(s) PO TID 06/21/20 19 2019 Inactive atorvastatin 20 mg tablet RxNorm: 188459 1 Tablet(s) PO QHS 06/07/20 19 2018 Inactive This refill negates all other refills of this medication TRUEplus Lancets 30 gauge RxNorm: 1 Lancets Miscellaneous QAM 05/29/20 19 2018 Inactive 100/box gabapentin 300 mg capsule RxNorm: 295621 1 Capsule(s) PO TID 05/03/20 19 2018 Inactive Flintstones Complete (iron) 18 mg iron chewable tablet RxNorm: 1 Tablet(s) PO daily 04/04/202021 Inactive This refill negates all other refills of this medication gabapentin 300 mg capsule RxNorm: 218364 1 Capsule(s) PO TID as needed 02/01/202018 Inactive True Metrix Glucose Test Strip RxNorm: 1 Test Strips Miscellaneous QAM 02/01/20 19 2018 Inactive 100/container Alcohol Prep Pads RxNorm: 873055 1 Patch TOP QAM 02/01/20 19 2018 Inactive TRUEplus Lancets 30 gauge RxNorm: 1 Lancets Miscellaneous QAM 02/01/20 19 2018 Inactive 100/box lisinopril 2.5 mg tablet RxNorm: 944532 1 Tablet(s) PO daily 12/28/192018 Inactive ranitidine 150 mg tablet RxNorm: 561228 1 Tablet(s) PO BID 10/21/192018 Inactive This refill negates all other refills of this medication albuterol sulfate 2.5 mg/3 mL (0.083 %) solution for nebulization RxNorm: 967960 1 Vial INH QID 10/21/192018 Inactive 60/box. [...] this medication gabapentin 300 mg capsule RxNorm: 617337 1 Capsule(s) PO TID as needed 10/21/192018 Inactive atorvastatin 20 mg tablet RxNorm: 416207 1 Tablet(s) PO QHS 10/21/192018 Inactive This refill negates all other refills of this medication trazodone 50 mg tablet RxNorm: 658685 1 Tablet(s) PO QHS 10/21/192018 Inactive This refill negates all other refills of this medication Ventolin HFA 90 mcg/actuation aerosol inhaler RxNorm: 911501 2 Puff(s) INH QID 10/21/192018 Inactive Please do not fill early. Please do not auto refill. This refill negates all other refills of this medication Calcium 600-D3 Plus 600 mg calcium-800 unit-50 mg tablet RxNorm: 1 Tablet(s) PO daily take an additonal tablet for itching. 10/21/192018 Inactive This refill negates all other refills of this medication Singulair 10 mg tablet RxNorm: 491335 1 Tablet(s) PO daily 10/21/192018 Inactive This refill negates all other refills of this medication buspirone 7.5 mg tablet RxNorm: 591612 1 Tablet(s) PO BID 10/21/192018 Inactive This refill negates all other refills of this medication diclofenac sodium 75 mg tablet,delayed release RxNorm: 735403 1 Tablet(s) PO BID 10/21/192018 Inactive This refill negates all other refills of this medication hydrochlorothiazide 12.5 mg tablet RxNorm: 693137 1 Tablet(s) PO QAM 10/21/192018 Inactive metoprolol succinate ER 50 mg tablet,extended release 24 hr RxNorm: 284259 1 Tablet(s) PO daily 10/21/192018 Inactive This refill negates all other refills of this medication levothyroxine 50 mcg tablet RxNorm: 501505 1 Tablet(s) PO daily 10/21/192018 Inactive This refill negates all other refills of this medication cetirizine 10 mg tablet RxNorm: 5362789 1 Tablet(s) PO daily 10/21/192018 Inactive This refill negates all other refills of this medication. Please do not auto refill Flintstones Complete (iron) 18 mg iron chewable tablet RxNorm: 1 Tablet(s) PO daily 10/21/192018 Inactive This refill negates all other refills of this medication buspirone 7.5 mg tablet RxNorm: 417698 1 Tablet(s) PO BID 10/12/19 19 2018 Inactive cetirizine 10 mg tablet RxNorm: 0768054 1 Tablet(s) PO daily 09/28/20 18 2018 Inactive Guaiasorb DM 10 mg-100 mg/5 mL oral liquid RxNorm: 939975 10 Milliliter(s) PO As needed every 4 hr 09/24/20 18 2018 Inactive Vicks Vaporub 4.7 %-1.2 %-2.6 % topical ointment RxNorm: 1652522 1 Application TOP TID 09/24/20 18 2018 Inactive levmetamfetamine 50 mg nasal inhaler RxNorm: 1 Unit(s) NASAL Q3-4H 09/24/20 18 2017 Inactive sertraline 50 mg tablet RxNorm: 551843 1 Tablet(s) PO daily 09/09/20 18 2018 Inactive Please note dose trazodone 50 mg tablet RxNorm: 295172 1 Tablet(s) PO QHS 09/06/20 18 2018 Inactive sertraline 50 mg tablet RxNorm: 234503 1 Tablet(s) PO daily 09/06/20 18 2017 Inactive amoxicillin 500 mg tablet RxNorm: 523443 1 Tablet(s) PO Q12H 08/31/20 18 2017 Inactive albuterol sulfate 2.5 mg/3 mL (0.083 %) solution for nebulization RxNorm: 245874 1 Vial INH QID 08/10/20 18 2018 Inactive 60/box. Please do not fill early. Please do not auto refill. Prozac 10 mg capsule RxNorm: 999580 1 Capsule(s) PO daily 08/09/20 18 2017 Inactive buspirone 7.5 mg tablet RxNorm: 407469 1 Tablet(s) PO BID 08/09/20 18 2018 Inactive gabapentin 300 mg capsule RxNorm: 813681 1 Capsule(s) PO TID as needed 08/01/20 18 2018 Inactive hydrochlorothiazide 12.5 mg tablet RxNorm: 528758 1 Tablet(s) PO QAM 08/01/20 18 2018 Inactive ranitidine 150 mg tablet RxNorm: 248933 1 Tablet(s) PO BID 08/01/20 18 2018 Inactive Macrobid 100 mg capsule RxNorm: 825012 1 Capsule(s) PO Q12H 06/21/20 18 2017 Inactive Singulair 10 mg tablet RxNorm: 028316 1 Tablet(s) PO daily 06/14/20 18 2018 Inactive Ventolin HFA 90 mcg/actuation aerosol inhaler RxNorm: 5347314 2 Puff(s) INH QID 06/14/20 18 2018 Inactive Singulair 10 mg tablet RxNorm: 650728 1 Tablet(s) PO daily 06/14/20 18 2017 Inactive buspirone 7.5 mg tablet RxNorm: 521960 1 Tablet(s) PO BID 06/14/20 18 2017 Inactive Prozac 10 mg capsule RxNorm: 672172 1 Capsule(s) PO daily 06/14/20 18 2017 Inactive Neilmed Pediatric Sinus Rinse Refill packet RxNorm: 1 Unit Dose NASAL PRN 05/31/20 18 2021 Inactive diclofenac sodium 75 mg tablet,delayed release RxNorm: 231708 1 Tablet(s) PO BID 05/31/20 18 2017 Inactive lisinopril 2.5 mg tablet RxNorm: 522292 1 Tablet(s) PO daily 05/31/20 18 2017 Inactive metoprolol succinate ER 50 mg tablet,extended release 24 hr RxNorm: 395203 1 Tablet(s) PO daily 05/31/20 18 2017 Inactive levothyroxine 50 mcg tablet RxNorm: 804444 1 Tablet(s) PO daily 05/31/20 18 2017 Inactive TRUEplus Lancets 30 gauge RxNorm: 1 Lancets Miscellaneous QAM 05/31/20 18 2017 Inactive 100/box Ventolin HFA 90 mcg/actuation aerosol inhaler RxNorm: 623304 2 Puff(s) INH QID 05/31/20 18 2017 Inactive Aleve 220 mg capsule RxNorm: 3172042 1 Capsule(s) PO BID 05/31/20 18 2018 Inactive ranitidine 150 mg tablet RxNorm: 946004 1 Tablet(s) PO BID 05/31/20 18 2017 Inactive gabapentin 300 mg capsule RxNorm: 892555 1 Capsule(s) PO TID as needed 05/31/20 18 2017 Inactive atorvastatin 20 mg tablet RxNorm: 417782 1 Tablet(s) PO QHS 05/31/20 18 2017 Inactive True Metrix Glucose Test Strip RxNorm: 1 Test Strips Miscellaneous QAM 05/31/20 18 2017 Inactive 50/container Calcium 600-D3 Plus 600 mg calcium-800 unit-50 mg tablet RxNorm: 1 Tablet(s) PO daily take an additonal tablet for itching. 05/31/20 18 2017 Inactive hydrochlorothiazide 12.5 mg tablet RxNorm: 814421 1 Tablet(s) PO QAM 05/31/20 18 2017 Inactive Flintstones Complete (iron) 18 mg iron chewable tablet RxNorm: 1 Tablet(s) PO daily 05/31/20 18 2017 Inactive d-mannose oral powder RxNorm: PO 18 2021 Inactive True Metrix Glucose Meter RxNorm: miscellaneous 08/17/20 19 2018 Inactive sertraline 50 mg tablet RxNorm: 992869 1 Tablet(s) PO daily 11/28/19 20 2019 Inactive loperamide 2 mg tablet RxNorm: 884569 oral 09/29/20 19 2018 Inactive Symbicort 160 mcg-4.5 mcg/actuation HFA aerosol inhaler RxNorm: 6421658 2 Puff(s) INH BID 08/17/20 19 2018 Inactive Medication Administered No Medication Administered data Procedures Procedure Codes Date Frailty Screening CPT-4: SFD 05/20/2021 Hypertension CPT-4: HTN 04/01/2021 Tobacco Assessment/Screening CPT-4: TCA 08/2021 Patient Health Questionnaire CPT-4: DPHQ 08/2021 Mini Mental State Exam CPT-4: DMMA 1 Annual Wellness Visit (Subsequent Visit) CPT-4: G0439 01/13/2021 Advanced Care Planning CPT-4: VACP 1 [facility] CPT-4: DFRA1Semmes Fany AssessmentCPT-4: DSWA12/17/2020Urinalysis, dip stickCPT-4: 014355009/24/2020Patient Health QuestionnaireCPT-4: DPHQ 08/19/2020ElectrocardiogramCPT-4: 6563434Tobacco Assessment/Screening CPT-4: TCA01/01/2020Fall Risk AssessmentSNOMED CT: 588125004 CPT-4: DFRA01/01/2020Functional AssessmentCPT-4: DFA01/01/2020Semmes Fany AssessmentCPT-4: DSWA11/28/2019Patient Health QuestionnaireCPT-4: DPHQ11/28/2019 [place] Fany AssessmentCPT-4: DSWA10/17/2019HypertensionCPT-4: HTN10/17/[address]: 156996633 CPT-4: DFRA09/19/2019Functional AssessmentCPT-4: DFA111/20/2018Urinalysis, dip stickCPT-4: 020461906/21/2019Tobacco Assessment/ScreeningCPT-4: TCA05/24/2019 Patient Health QuestionnaireCPT-4: DPHQ05/24/2019AHA/REBECCA Classification AssessmentCPT-4: DAHA04/25/2019Controlled Substance ReportCPT-4: CTRSU04/25/2019 Urinalysis, dip stickCPT-4: 153729503/28/2019Urinalysis, dip stickCPT-4: 57972 03/28/20193600O8K-VbzktoegeztzbzmHRE-6: 90252MhrjvqnR2E-BmuhyiqfpudmpxsTSQ-6: 96357 PfvugdcV1Q-DiaiomtdjasmngiJLH-8: 02760YcxwyltF4Y-GabbsbdbvppiovxFAM-0: 41460 YcjxmtsK0A-ZutwppllfxkdiokJLE-2: 50632JbccczeP6E-VihkdbbeyephokoZAZ-7: 66064 LoswpiwN4F-FxwenlefxvvkzgcXAQ-0: 69346IqsrsheUffsszxtlq ReferralSNOMED CT: 871683745 CPT-4: Q93Ymoxsro Reason For Visit No Reason For Visit data Plan of Care Planned Activity Notes Codes Status Date Referral: Pending Gynecology Referral Informatio n Referral ProcessedReferral: Pending Pulmonology Referral InformationReferralProcessed Referral: Pending Psychiatry Referral InformationReferralInitiatedReferral: Pending Respiratory Services Referral InformationReferralInitiatedReferral: Pending Ophthalmology Referral InformationReferralInitiatedReferral: [facility] WPtel: [address] [place] [address] [address] [place] [address] USWriter placed a call out to the patient to notify her that it has been recommended that she be seenby a urologist. Patient agreed to be seen, does not have a provider of choice and no transportationissues. [employer] faxed referral and clinical notes to [facility] in [place], [place] near the patient's home. Patient [...] seen and prefers a provider in the [place] or [facility]. [employer] placed a call out to everyone listed in the area and the only location that was able to accept the patient's insurance was [place] [address] [place] [id number] and spoke with Maylin. Maylin asked that the patient's referral, face sheet and visit notes be faxed to . [employer] faxed over requested documents. Patient appointment confirmation letter generated and mailed to her home address. Patient to call to schedule an appointment.ProcessedReferral: [facility] WPtel: [address] [id number] [place]Patient notified that it has been advised that she be seen by Neurology. Patient agreed to be seen and prefers to be seen by a provider in the [place], [place] area. Patient denies any concerns with transportation, and prefers to schedule her own appointment. [employer] placed a call out to [facility] and spoke with Neeraj P: who confirmed that their office is able to acceptnew patients and the patient's insurance. After confirming the providers fax number, automotive service writer faxed over the patient's referral, [...]
--- OUTSIDE RECORDS SUMMARY | 2023-12-07 02:19 | XMS_ITS | CCD ---
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 Insurance Consultant Name Role Phone Palomo KING, Anna Primary Care Provider Unav ailable Unavailable Chronic Care Management Unavaila ble Summary Purpose DataExchange Insurance Providers Payer name Policy type / Coverage type Covered constitution party ID Effective Begin Date Effective End Date [facility] [id number] Unknown Unknown Family history Mother Diagnosis Age [...] 05/31/2018 Education level Unknown Some High School 10th05/31/20185939ZixxribqkiBorlfmbNkqmdhmlgv83/29/2018Tobacco historySNOMED CT: 654099913Duo never smoked or chewed qpnnnny3905/31/2018Alcohol historySNOMED CT: 356192459Txtfg drinks acrahpb5805/31/2018Has the patient ever used illegal drugs? UnknownHas never used illegal drugs05/31/2018DNR Order/ Advanced Directive UnknownFull Code05/31/2018 Allergies, Adverse Reactions, Alerts Substance Reaction Codes Entered Date Inactivated Date Status OxyContin itch, RxNorm: 031055 01/13/2021 No Inactive Da te Active *No known food allergies Rjsrrsb9809/06/2018No Inactive DateActiveMethylprednisolonehivesRxNorm: 6902 09/06/2018No Inactive DateActive Problems [...] examinationICD-10: Z01.810 ICD-9: V72.8106/InactiveHeadacheICD-10: R51 ICD-9: 784.001/10/2018InactiveOther correction (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ICD-10: Z79.899 ICD-9: V58.6907/InactiveType 2 [...] Instructions omeprazole 20 mg capsule,delayed release RxNorm: 552072 Take 1 Capsule(s) Oral every evening 022 2021 Inactive levothyroxine 50 mcg tablet RxNorm: 118858 Take 1 Tablet(s) Oral every day 022 2021 Inactive atorvastatin 20 mg tablet RxNorm: 695339 Take 1 Tablet(s) Oral every night at bedtime 022 2021 Inactive This refill negates all other refills of this medication lisinopril 2.5 mg tablet RxNorm: 514680 Take 1 Tablet(s) Oral every day 022 2021 Inactive gabapentin 300 mg capsule RxNorm: 256310 Take 1 Capsule(s) Oral three times a day 022 04/07/ 2022 Inactive montelukast 10 mg tablet RxNorm: 953896 Take 1 Tablet(s) Oral every day 022 2021 Inactive cholecalciferol (vitamin D3) 50 mcg (2,000 unit) tablet RxNorm: 576105 Take 1 Tablet(s) Oral every day 022 2022 Inactive Myrbetriq 50 mg tablet,extended release RxNorm: 8165284 1 Tablet(s) Oral every day No Stop Date Active Ozempic 0.25 mg or 0.5 mg (2 mg/1.5 mL) subcutaneous pen injector RxNorm: 9442370 inject 0.5 milligrams subcutaneously every week 2021 Inactive Ozempic 0.25 mg or 0.5 mg (2 mg/1.5 mL) subcutaneous pen injector RxNorm: 2506578 Take 0.5 Capsule(s) Injection once a week 2021 Inactive omeprazole 20 mg capsule,delayed release RxNorm: 873863 Take 1 Capsule(s) Oral every evening 2020 Inactive Ozempic 0.25 mg or 0.5 mg (2 mg/1.5 mL) subcutaneous pen injector RxNorm: 6906475 Take 0.25 Milligram(s) Subcutaneous once a week 2021 Inactive Easy Touch Alcohol Prep Pads RxNorm: 780151 USE DIRECTED EACH MORNING 2021 Inactive Probiotic 10 billion cell capsule RxNorm: 9332988 Take 1 Capsule(s) Oral every day 2021 Inactive levothyroxine 50 mcg tablet RxNorm: 746888 Take 1 Tablet(s) Oral every day 2020 Inactive Acid Metal Ceiling Hanger (famotidine) 20 mg tablet RxNorm: 205158 Take 1 Tablet(s) Oral every morning 021 2020 Inactive Heartburn Relief (famotidine) 10 mg tablet RxNorm: 418409 Take 1 Tablet(s) Oral QAM 2020 Inactive levothyroxine 50 mcg tablet RxNorm: 633241 Take 1 Tablet(s) Oral QD 021 2020 Inactive Singulair 10 mg tablet RxNorm: 620465 TAKE (1) TABLET BY MOUTH DAILY 021 2020 Inactive metformin 1,000 mg tablet RxNorm: 015521 1 Tablet(s) Oral two times a day 2021 Inactive lisinopril 2.5 mg tablet RxNorm: 003827 Take 1 Tablet(s) Oral every day 021 2020 Inactive hydrochlorothiazide 25 mg tablet RxNorm: 674960 Take 1 Tablet(s) Oral every day 021 2020 Inactive ondansetron 4 mg disintegrating tablet RxNorm: 164398 1 Tablet(s) Oral two times a day 021 2020 Inactive Sudafed 12 Hour 120 mg tablet,extended release RxNorm: 6919588 TAKE 1 TABLET BY MOUTH EVERY 12 HOURS NEEDED 2021 Inactive Heartburn Relief (famotidine) 10 mg tablet RxNorm: 487692 Take 1 Tablet(s) Oral every morning 021 2020 Inactive omeprazole 20 mg capsule,delayed release RxNorm: 174103 1 Capsule(s) Oral every evening 021 2020 Inactive sertraline 100 mg tablet RxNorm: 458232 2 Tablet(s) Oral every day 021 2020 Inactive levothyroxine 50 mcg tablet RxNorm: 949990 TAKE (1) TABLET BY MOUTH DAILY 021 2020 Inactive metformin 500 mg tablet RxNorm: 432842 1 Tablet(s) Oral two times a day take with 500mg to equal 1000mg 021 2020 Inactive gabapentin 300 mg capsule RxNorm: 312690 TAKE 1 CAPSULE BY MOUTH THREE TIMES A DAY 021 2020 Inactive lisinopril 2.5 mg tablet RxNorm: 430584 TAKE 1 TABLET BY MOUTH DAILY 021 2020 Inactive gabapentin 300 mg capsule RxNorm: 174298 TAKE 1 CAPSULE BY MOUTH THREE TIMES A DAY 021 2020 Inactive Singulair 10 mg tablet RxNorm: 128162 TAKE (1) TABLET BY MOUTH DAILY 021 2020 Inactive metformin 1,000 mg tablet RxNorm: 485633 1 Tablet(s) Oral two times a day 2020 Inactive atorvastatin 40 mg tablet RxNorm: 704490 1 Tablet(s) Oral every day 021 2020 Inactive omeprazole 20 mg capsule,delayed release RxNorm: 079658 1 Capsule(s) Oral every evening 021 2020 Inactive famotidine 10 mg tablet RxNorm: 514021 1 Tablet(s) Oral every morning 021 2020 Inactive Alcohol Prep Pads RxNorm: 109657 USE EACH MORNING 021 2020 Inactive omeprazole 20 mg capsule,delayed release RxNorm: 552212 1 Capsule(s) Oral two times a day 021 2021 Inactive omeprazole 20 mg capsule,delayed release RxNorm: 287736 TAKE 1 CAPSULE BY MOUTH EVERY DAY 2021 Inactive Macrobid 100 mg capsule RxNorm: 397833 1 Capsule(s) Oral every 12 hours with food 2020 Inactive omeprazole 20 mg capsule,delayed release RxNorm: 657023 1 Capsule(s) Oral two times a day 2021 Inactive metformin 1,000 mg tablet RxNorm: 364878 1 Tablet(s) Oral two times a day 2020 Inactive start on September 11, 2020 metformin 500 mg tablet RxNorm: 278066 1 Tablet(s) Oral two times a day take with 500mg to equal 1000mg 2019 Inactive gabapentin 300 mg capsule RxNorm: 447146 TAKE 1 CAPSULE BY MOUTH THREE TIMES DAILY 2020 Inactive cetirizine 10 mg tablet RxNorm: 7498277 TAKE (1) TABLET BY MOUTH DAILY 020 2020 Inactive metformin 500 mg tablet RxNorm: 333842 1 Tablet(s) Oral two times a day 020 2019 Inactive loperamide 2 mg tablet RxNorm: 962363 1 Tablet(s) Oral as needed take one tablet after each loose stool, maximum of 8 tablets in 24 hours 2021 Inactive Sudafed 12 Hour 120 mg tablet,extended release RxNorm: 0148921 TAKE 1 TABLET BY MOUTH EVERY 12 HOURS NEEDED 020 2019 Inactive hydrochlorothiazide 25 mg tablet RxNorm: 365115 TAKE (1) TABLET BY MOUTH EVERY DAY 020 2019 Inactive omeprazole 20 mg capsule,delayed release RxNorm: 122903 TAKE 1 CAPSULE BY MOUTH EVERY DAY 020 2020 Inactive metformin 500 mg tablet RxNorm: 234529 1 Tablet(s) Oral every day 2019 Inactive True Metrix Glucose Test Strip RxNorm: 1 Test Strips Miscellaneous two times a day as needed No Stop Date Active metformin 500 mg tablet RxNorm: 577213 1 Tablet(s) Oral every day 020 2019 Inactive diclofenac sodium 75 mg tablet,delayed release RxNorm: 005572 1 Tablet(s) PO BID 2021 Inactive This refill negates all other refills of this medication Sudafed 12 Hour 120 mg tablet,extended release RxNorm: 9730723 TAKE 1 TABLET BY MOUTH EVERY 12 HOURS NEEDED 020 2019 Inactive True Metrix Glucose Test Strip RxNorm: 1 Test Strips Miscellaneous every morning 020 2019 Inactive 100/container True Metrix Glucose Test Strip RxNorm: 1 Test Strips Miscellaneous QAM 020 2019 Inactive 100/container loperamide 2 mg tablet RxNorm: 075242 1 Tablet(s) Oral as needed take one tablet after each loose stool, maximum of 8 tablets in 24 hours 020 2019 Inactive cetirizine 10 mg tablet RxNorm: 8113862 1 Tablet(s) PO daily 2019 Inactive loperamide 2 mg tablet RxNorm: 045004 1 Tablet(s) Oral as needed take one tablet after each loose stool, maximum of 8 tablets in 24 hours 2019 Inactive quetiapine 100 mg tablet RxNorm: 650214 1 Tablet(s) Oral every night at bedtime 2019 Inactive levothyroxine 50 mcg tablet RxNorm: 714475 1 Tablet(s) PO daily 2020 Inactive gabapentin 300 mg capsule RxNorm: 849643 1 Capsule(s) PO TID 2019 Inactive levothyroxine 50 mcg tablet RxNorm: 583573 1 Tablet(s) PO daily 2019 Inactive lisinopril 2.5 mg tablet RxNorm: 257082 1 Tablet(s) PO daily 2020 Inactive gabapentin 300 mg capsule RxNorm: 873945 1 Capsule(s) PO TID 2019 Inactive cetirizine 10 mg tablet RxNorm: 9415341 1 Tablet(s) PO daily 2019 Inactive Singulair 10 mg tablet RxNorm: 896494 1 Tablet(s) PO daily 2020 Inactive gentamicin 0.3 % eye drops RxNorm: 433999 1 Drop(s) ophthalmic (eye) four times a day 2019 Inactive gentamicin 0.3 % eye drops RxNorm: 382376 1 Drop(s) ophthalmic (eye) four times a day 2019 Inactive gentamicin 0.3 % eye drops RxNorm: 870085 1 Drop(s) ophthalmic (eye) four times a day 2019 Inactive hydrochlorothiazide 25 mg tablet RxNorm: 790731 1 Tablet(s) Oral every day 2019 Inactive Sudafed 12 Hour 120 mg tablet,extended release RxNorm: 4659994 TAKE (1) TABLET BY MOUTH EVERY 12 HOURS NEEDED 020 2019 Inactive loperamide 2 mg tablet RxNorm: 932772 1 Tablet(s) Oral as needed take one tablet after each loose stool, maximum of 8 tablets in 24 hours 020 2019 Inactive loperamide 2 mg tablet RxNorm: 503544 1 Tablet(s) Oral as needed take one tablet after each loose stool, maximum of 8 tablets in 24 hours 020 2019 Inactive atorvastatin 40 mg tablet RxNorm: 546942 1 Tablet(s) Oral every day 2020 Inactive quetiapine 100 mg tablet RxNorm: 262530 1 Tablet(s) Oral every night at bedtime 2019 Inactive sertraline 100 mg tablet RxNorm: 995155 1 Tablet(s) Oral 2019 Inactive omeprazole 20 mg capsule,delayed release RxNorm: 569757 1 Capsule(s) Oral every day 2019 Inactive amoxicillin 250 mg capsule RxNorm: 596292 1 Capsule(s) Oral three times a day 2019 Inactive multivitamin with iron-mineral tablet RxNorm: 1 Tablet(s) Oral every day 2021 Inactive cetirizine 10 mg tablet RxNorm: 3504562 1 Tablet(s) PO daily 2019 Inactive This refill negates all other refills of this medication. Please do not auto refill Singulair 10 mg tablet RxNorm: 961519 1 Tablet(s) PO daily 2019 Inactive This refill negates all other refills of this medication gabapentin 300 mg capsule RxNorm: 173690 1 Capsule(s) PO TID 2019 Inactive lisinopril 2.5 mg tablet RxNorm: 298947 1 Tablet(s) PO daily 2019 Inactive levothyroxine 50 mcg tablet RxNorm: 001573 1 Tablet(s) PO daily 2019 Inactive This refill negates all other refills of this medication hydrochlorothiazide 25 mg tablet RxNorm: 575682 1 Tablet(s) Oral every day 2019 Inactive fenugreek seed extract 500 mg capsule RxNorm: 1 Capsule(s) Oral three times a day 2021 Inactive Alcohol Prep Pads RxNorm: 269235 1 Patch TOP QAM 2020 Inactive loperamide 2 mg tablet RxNorm: 667107 1 Tablet(s) Oral as needed take one [...] 2019 Inactive hydrochlorothiazide 25 mg tablet RxNorm: 900765 1 Tablet(s) Oral every day 2019 Inactive Sudafed 12 Hour 120 mg tablet,extended release RxNorm: 9113577 1 Tablet(s) Oral every 12 hours as needed 2018 Inactive omeprazole 20 mg capsule,delayed release RxNorm: 310975 1 Capsule(s) Oral every day 019 2019 Inactive Sudafed 12 Hour 120 mg tablet,extended release RxNorm: 0620071 1 Tablet(s) Oral every 12 hours as needed 2018 Inactive pantoprazole 40 mg tablet,delayed release RxNorm: 918774 1 Tablet(s) Oral every day 019 2018 Inactive discontinue any other H2Blkr. and PPI albuterol sulfate 2.5 mg/3 mL (0.083 %) solution for nebulization RxNorm: 371013 1 Vial Inhalation every four hours as needed as needed for dyspnea 019 2019 Inactive 60/box. This refill negates all other refills of this medication. Please do not fill early. Please do not auto refill. Symbicort 160 mcg-4.5 mcg/actuation HFA aerosol inhaler RxNorm: 5530893 2 Puff(s) INH BID No Stop Date Active Alcohol Prep Pads RxNorm: 365288 1 Patch TOP QAM 019 2019 Inactive Ventolin HFA 90 mcg/actuation aerosol inhaler RxNorm: 710936 2 Puff(s) INH QID 019 2019 Inactive Please do not fill early. Please do not auto refill. This refill negates all other refills of this medication True Metrix Glucose Test Strip RxNorm: 1 Test Strips Miscellaneous QAM 019 2019 Inactive 100/container atorvastatin 40 mg tablet RxNorm: 355381 1 Tablet(s) Oral every day 019 2019 Inactive buspirone 7.5 mg tablet RxNorm: 746359 1 Tablet(s) PO BID 019 2020 Inactive This refill negates all other refills of this medication hydrochlorothiazide 12.5 mg tablet RxNorm: 138549 1 Tablet(s) PO QAM 019 2019 Inactive levmetamfetamine 50 mg nasal inhaler RxNorm: 1 Unit(s) NASAL Q3-4H Do not use more than every 3 hours or 8 times/24hours 019 2021 Inactive Please do not auto refill. This refill negates all other refills of this medication Ventolin HFA 90 mcg/actuation aerosol inhaler RxNorm: 099052 2 Puff(s) INH QID 2018 Inactive Please do not fill early. Please do not auto refill. This refill negates all other refills of this medication Singulair 10 mg tablet RxNorm: 055737 1 Tablet(s) PO daily 019 2019 Inactive This refill negates all other refills of this medication cetirizine 10 mg tablet RxNorm: 8923609 1 Tablet(s) PO daily 019 2019 Inactive This refill negates all other refills of this medication. Please do not auto refill levothyroxine 50 mcg tablet RxNorm: 555183 1 Tablet(s) PO daily 019 2019 Inactive This refill negates all other refills of this medication diclofenac sodium 75 mg tablet,delayed release RxNorm: 543096 1 Tablet(s) PO BID 019 2019 Inactive This refill negates all other refills of this medication ranitidine 150 mg tablet RxNorm: 159993 1 Tablet(s) PO BID 019 2018 Inactive This refill negates all other refills of this medication Calcium 600-D3 Plus (mag-zinc) 600 mg calcium-800 unit-50 mg tablet RxNorm: 1 Tablet(s) PO daily take an additonal tablet for itching. 019 2018 Inactive This refill negates all other refills of this medication albuterol sulfate 2.5 mg/3 mL (0.083 %) solution for nebulization RxNorm: 431665 1 Vial INH QID 2018 Inactive 60/box. This refill negates all other refills of this medication. Please do not fill early. Please do not auto refill. lisinopril 2.5 mg tablet RxNorm: 330202 1 Tablet(s) PO daily 019 2019 Inactive gabapentin 300 mg capsule RxNorm: 481551 1 Capsule(s) PO TID 019 2019 Inactive atorvastatin 20 mg tablet RxNorm: 339239 1 Tablet(s) PO QHS 019 2018 Inactive This refill negates all other refills of this medication TRUEplus Lancets 30 gauge RxNorm: 1 Lancets Miscellaneous QAM 019 2018 Inactive 100/box gabapentin 300 mg capsule RxNorm: 361526 1 Capsule(s) PO TID 019 2018 Inactive Flintsmaury Complete (iron) 18 mg iron chewable tablet RxNorm: 1 Tablet(s) PO daily 2021 Inactive This refill negates all other refills of this medication gabapentin 300 mg capsule RxNorm: 539637 1 Capsule(s) PO TID as needed 2018 Inactive True Metrix Glucose Test Strip RxNorm: 1 Test Strips Miscellaneous QAM 2018 Inactive 100/container Alcohol Prep Pads RxNorm: 647522 1 Patch TOP QAM 2018 Inactive TRUEplus Lancets 30 gauge RxNorm: 1 Lancets Miscellaneous QAM 019 2018 Inactive 100/box lisinopril 2.5 mg tablet RxNorm: 111408 1 Tablet(s) PO daily 2018 Inactive ranitidine 150 mg tablet RxNorm: 546073 1 Tablet(s) PO BID 2018 Inactive This refill negates all other refills of this medication albuterol sulfate 2.5 mg/3 mL (0.083 %) solution for nebulization RxNorm: 404163 1 Vial INH QID 2018 Inactive 60/box. [...] this medication gabapentin 300 mg capsule RxNorm: 465001 1 Capsule(s) PO TID as needed 019 2018 Inactive atorvastatin 20 mg tablet RxNorm: 476792 1 Tablet(s) PO QHS 019 2018 Inactive This refill negates all other refills of this medication trazodone 50 mg tablet RxNorm: 738368 1 Tablet(s) PO QHS 019 2018 Inactive This refill negates all other refills of this medication Ventolin HFA 90 mcg/actuation aerosol inhaler RxNorm: 991755 2 Puff(s) INH QID 019 2018 Inactive Please do not fill early. Please do not auto refill. This refill negates all other refills of this medication Calcium 600-D3 Plus 600 mg calcium-800 unit-50 mg tablet RxNorm: 1 Tablet(s) PO daily take an additonal tablet for itching. 019 2018 Inactive This refill negates all other refills of this medication Singulair 10 mg tablet RxNorm: 793384 1 Tablet(s) PO daily 019 2018 Inactive This refill negates all other refills of this medication buspirone 7.5 mg tablet RxNorm: 813411 1 Tablet(s) PO BID 019 2018 Inactive This refill negates all other refills of this medication diclofenac sodium 75 mg tablet,delayed release RxNorm: 101081 1 Tablet(s) PO BID 019 2018 Inactive This refill negates all other refills of this medication hydrochlorothiazide 12.5 mg tablet RxNorm: 169701 1 Tablet(s) PO QAM 019 2018 Inactive metoprolol succinate ER 50 mg tablet,extended release 24 hr RxNorm: 003540 1 Tablet(s) PO daily 019 2018 Inactive This refill negates all other refills of this medication levothyroxine 50 mcg tablet RxNorm: 280762 1 Tablet(s) PO daily 019 2018 Inactive This refill negates all other refills of this medication cetirizine 10 mg tablet RxNorm: 7398281 1 Tablet(s) PO daily 019 2018 Inactive This refill negates all other refills of this medication. Please do not auto refill Flintstones Complete (iron) 18 mg iron chewable tablet RxNorm: 1 Tablet(s) PO daily 019 2018 Inactive This refill negates all other refills of this medication buspirone 7.5 mg tablet RxNorm: 923248 1 Tablet(s) PO BID 019 2018 Inactive cetirizine 10 mg tablet RxNorm: 3745460 1 Tablet(s) PO daily 018 2018 Inactive Guaiasorb DM 10 mg-100 mg/5 mL oral liquid RxNorm: 695234 10 Milliliter(s) PO As needed every 4 hr 2018 Inactive Vicks Vaporub 4.7 %-1.2 %-2.6 % topical ointment RxNorm: 6425982 1 Application TOP TID 018 2018 Inactive levmetamfetamine 50 mg nasal inhaler RxNorm: 1 Unit(s) NASAL Q3-4H 2017 Inactive sertraline 50 mg tablet RxNorm: 872006 1 Tablet(s) PO daily 018 2018 Inactive Please note dose trazodone 50 mg tablet RxNorm: 223373 1 Tablet(s) PO QHS 018 2018 Inactive sertraline 50 mg tablet RxNorm: 114956 1 Tablet(s) PO daily 018 2017 Inactive amoxicillin 500 mg tablet RxNorm: 277114 1 Tablet(s) PO Q12H 2017 Inactive albuterol sulfate 2.5 mg/3 mL (0.083 %) solution for nebulization RxNorm: 051068 1 Vial INH QID 018 2018 Inactive 60/box. Please do not fill early. Please do not auto refill. Prozac 10 mg capsule RxNorm: 942013 1 Capsule(s) PO daily 018 2017 Inactive buspirone 7.5 mg tablet RxNorm: 507863 1 Tablet(s) PO BID 2018 Inactive gabapentin 300 mg capsule RxNorm: 513535 1 Capsule(s) PO TID as needed 2018 Inactive hydrochlorothiazide 12.5 mg tablet RxNorm: 901183 1 Tablet(s) PO QAM 2018 Inactive ranitidine 150 mg tablet RxNorm: 861380 1 Tablet(s) PO BID 018 2018 Inactive Macrobid 100 mg capsule RxNorm: 379710 1 Capsule(s) PO Q12H 018 2017 Inactive Singulair 10 mg tablet RxNorm: 140601 1 Tablet(s) PO daily 2018 Inactive Ventolin HFA 90 mcg/actuation aerosol inhaler RxNorm: 3655765 2 Puff(s) INH QID 018 2018 Inactive Singulair 10 mg tablet RxNorm: 043396 1 Tablet(s) PO daily 018 2017 Inactive buspirone 7.5 mg tablet RxNorm: 470127 1 Tablet(s) PO BID 018 2017 Inactive Prozac 10 mg capsule RxNorm: 687282 1 Capsule(s) PO daily 018 2017 Inactive diclofenac sodium 75 mg tablet,delayed release RxNorm: 288724 1 Tablet(s) PO BID 018 2017 Inactive lisinopril 2.5 mg tablet RxNorm: 336854 1 Tablet(s) PO daily 018 2017 Inactive Neilmed Pediatric Sinus Rinse Refill packet RxNorm: 1 Unit Dose NASAL PRN 018 2021 Inactive metoprolol succinate ER 50 mg tablet,extended release 24 hr RxNorm: 417508 1 Tablet(s) PO daily 018 2017 Inactive levothyroxine 50 mcg tablet RxNorm: 419511 1 Tablet(s) PO daily 018 2017 Inactive TRUEplus Lancets 30 gauge RxNorm: 1 Lancets Miscellaneous QAM 018 2017 Inactive 100/box Ventolin HFA 90 mcg/actuation aerosol inhaler RxNorm: 612326 2 Puff(s) INH QID 018 2017 Inactive Aleve 220 mg capsule RxNorm: 6748951 1 Capsule(s) PO BID 018 2018 Inactive ranitidine 150 mg tablet RxNorm: 788232 1 Tablet(s) PO BID 018 2017 Inactive gabapentin 300 mg capsule RxNorm: 785669 1 Capsule(s) PO TID as needed 018 2017 Inactive atorvastatin 20 mg tablet RxNorm: 806030 1 Tablet(s) PO QHS 018 2017 Inactive True Metrix Glucose Test Strip RxNorm: 1 Test Strips Miscellaneous [facility] 018 2017 Inactive 50/container Calcium 600-D3 Plus 600 mg calcium-800 unit-50 mg tablet RxNorm: 1 Tablet(s) PO daily take an additonal tablet for itching. 018 2017 Inactive hydrochlorothiazide 12.5 mg tablet RxNorm: 250905 1 Tablet(s) PO QAM 018 2017 Inactive Flintstones Complete (iron) 18 mg iron chewable tablet RxNorm: 1 Tablet(s) PO daily 018 2017 Inactive True Metrix Glucose Meter RxNorm: miscellaneous 019 2018 Inactive sertraline 50 mg tablet RxNorm: 802944 1 Tablet(s) PO daily 020 2019 Inactive loperamide 2 mg tablet RxNorm: 561408 oral 019 2018 Inactive d-mannose oral powder RxNorm: PO 018 2021 Inactive Symbicort 160 mcg-4.5 mcg/actuation HFA aerosol inhaler RxNorm: 0445097 2 Puff(s) INH BID 019 2018 Inactive [...] Care Planning CPT-4: [facility] 4 CPT-4: DFRA01/13/2021emmes Fany AssessmentCPT-4: DSWA12/17/2020Urinalysis, dip stickCPT-4: 971232909/24/2020Patient Health QuestionnaireCPT-4: DPHQ 08/19/2020ElectrocardiogramCPT-4: 621923205/14/2020Tobacco Assessment/Screening CPT-4: TCA01/01/2020Fall Risk AssessmentSNOMED CT: 604353190 CPT-4: DFRA01/01/2020Functional AssessmentCPT-4: DFA01/01/2020[place] Fany AssessmentCPT-4: DSWA11/28/2019Patient Health QuestionnaireCPT-4: DPHQ11/28/2019 [place] Fany AssessmentCPT-4: DSWA10/17/2019HypertensionCPT-4: HTN10/17/[address]: 388478009 CPT-4: DFRA09/19/2019Functional AssessmentCPT-4: DFA111/20/2018Urinalysis, dip stickCPT-4: 415107806/21/2019Tobacco Assessment/ScreeningCPT-4: TCA05/24/2019 Patient Health QuestionnaireCPT-4: DPHQ05/24/2019AHA/REBECCA Classification AssessmentCPT-4: DAHA04/25/2019Controlled Substance ReportCPT-4: CTRSU07 Urinalysis, dip stickCPT-4: 9374953Urinalysis, dip stickCPT-4: 87462 03/28/20197426I4V-IhjigkwzbpshjyxHQU-6: 15361AdhignrZ9K-RhyjdnioqgbejnoRBP-9: 82254 SncipytW0C-SmhpjwpdlwbsijkVAX-1: 61787IrylybaE0L-XyczewmwahlfwutIAO-5: 10733 VzjuaksQ9J-HgperadmvrhqqlsGPH-1: 57324WhuuohgE4B-NmazjlbigcrfhdqJFP-7: 68956 UmrrxgdP9Z-LtpbbzniraubabvTHK-3: 88456CreswivH5J-KhxbxmodoeczufbNZV-4: 16553 MzkhbecP4K-YnspibujeahokfuZLS-6: 83981OgkeiqzClkgrlchpg ReferralSNOMED CT: 088408668 CPT-4: E27Bjhexii Reason For Visit No Reason For Visit data Plan of Care Planned Activity Notes Codes Status Date Referral: Pending Gynecology Referral Informatio n Referral ProcessedReferral: Pending Pulmonology Referral InformationReferralProcessed Referral: Pending Psychiatry Referral InformationReferralInitiatedReferral: Pending Respiratory Services Referral InformationReferralInitiatedReferral: Pending Ophthalmology Referral InformationReferralInitiatedReferral: [facility] WPtel: [address] [place] [address] USWriter placed a call out to the patient to notify her that it has been recommended that she be seenby a urologist. Patient agreed to be seen, does not have a provider of choice and no transportationissues. Ophthalmologist Retina Specialist faxed referral and clinical notes to [facility] in [place], [place] near the patient's home. Patient to [...] seen and prefers a provider in the [place] or [place] area. Ophthalmologist Retina Specialist placed a call out to everyone listed in the area and the only location that was able to accept the patient's insurance was [facility] [address] [place] [address] and spoke with Maylin. Maylin asked that the patient's referral, face sheet and visit notes be faxed to . Ophthalmologist Retina Specialist faxed over requested documents. Patient appointment confirmation letter generated and mailed to her home address. Patient to call to schedule an appointment.ProcessedReferral: [facility] WPtel: [address] [place], [place] [id number] USPatient notified that it has been advised that she be seen by Neurology. Patient agreed to be seen and prefers to be seen by a provider in the [place], [place] area. Patient denies any concerns with transportation, and prefers to schedule her own appointment. Ophthalmologist Retina Specialist placed a call out to [facility] and spoke with [...]
--- OUTSIDE RECORDS SUMMARY | 2023-12-07 02:19 | XMS_ITS | CCD ---
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 Reference Data Expert Name Role Phone Palomo KING, Anna Primary Care Provider Unav ailable Unavailable Chronic Care Management Unavaila ble Summary Purpose DataExchange Insurance Providers Payer name Policy type / Coverage type Covered green party ID Effective Begin Date Effective End Date [facility]KI [employer] [facility] [id number] Unknown Unknown Family history Mother Diagnosis Age [...] 05/31/2018 Education level Unknown Some High School 10th05/31/20182824RktdhvbkbyMikarwnLnisndzzfd39/29/2018Tobacco historySNOMED CT: 092731151Rlr never smoked or chewed xccrokx6505/31/2018Alcohol historySNOMED CT: 683955198Sbhxj drinks swcznoc5705/31/2018Has the patient ever used illegal drugs? UnknownHas never used illegal drugs05/31/2018DNR Order/ Advanced Directive UnknownFull Code05/31/2018 Allergies, Adverse Reactions, Alerts Substance Reaction Codes Entered Date Inactivated Date Status OxyContin itch, RxNorm: 857587 01/13/2021 No Inactive Da te Active *No known food allergies Iyverxv0309/06/2018No Inactive DateActiveMethylprednisolonehivesRxNorm: 6902 09/06/2018No Inactive DateActive Problems Condition Codes Effective Dates Condition St atus Adjustment disorder with mixed anxiety a nd depressed mood ICD-10: F43.23 ICD-9: 309.2812/01/2018ActiveAsthmaICD-10: J45.909 ICD-9: 493.9011ActiveGERD (gastroesophageal reflux disease)ICD-10: K21.9 ICD-9: 530.8112ActiveType 2 diabetes mellitus with peripheral neuropathy ICD-10: E11.42 ICD-9: 250.6002ActiveEdema, unspecifiedICD-10: R60.9 ICD-9: 782.310ActiveObstructive sleep apnea (adult) (pediatric)ICD-10: G47.33 ICD-9: 327.2309ActiveAdult [...] ICD-9: V72.8503/ResolvedEncounter for screening, unspecifiedICD-10: Z13.9 ICD-9: V82.9111/06/2017ResolvedFamily history of seizuresICD-10: Z84.89 ICD-9: V19.807/esolvedHyperlipidemia, unspecifiedICD-10: E78.5 ICD-9: 272.408ResolvedLong term (current) use of non-steroidal anti- inflammatories (NSAID)ICD-10: Z79.1 ICD-9: V58.6409ResolvedPatient Not SeenICD-10: UXZ.01 ICD-9: XZ0.107ResolvedPatient not seenICD-10: UXZ.01 ICD-9: UXZ.0112/esolvedUpper respiratory infectionICD-10: J06.9 ICD-9: 465.908/esolvedSyncope and collapseICD-10: R55 ICD-9: 780.203/ActivePost-traumatic stress disorder, unspecifiedICD-10: F43.10 ICD-9: 309.8112ActiveHistory of bladder surgeryICD-10: Z98.890 ICD-9: V45.8904/ctiveUrinary retention with incomplete bladder emptying ICD-10: R33.9 ICD-9: 788.21041ActiveEncounter for immunizationICD-10: Z23 ICD-9: V04.8109/06/2020InactiveApnea, not elsewhere classifiedICD-10: R06.81 ICD-9: 786.0305/10/2018InactiveChest pain, unspecifiedICD-10: R07.9 ICD-9: 786.5002InactiveChronic kidney disease, unspecifiedICD-10: N18.9 ICD-9: 585.909/InactiveEncounter for immunizationICD-10: Z23 ICD-9: V03.907/InactiveEncounter for preprocedural cardiovascular examinationICD-10: Z01.810 ICD-9: V72.8106/InactiveHeadacheICD-10: R51 ICD-9: 784.001/10/2018InactiveOther senior living (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ICD-10: Z79.899 ICD-9: V58.6907/InactiveType 2 [...] incontinenceICD-10: R15.9 ICD-9: 787.6003ActiveMixed incontinenceICD-10: N39.46 ICD-9: 788.33005/24/2019ActiveAbnormal electrocardiogram [ECG] [EKG]ICD-10: R94.31 ICD-9: 794.31005/30/2018Active Medications Medication Codes Instructions Start Date Stop Date Status Fill Instructions lisinopril 2.5 mg tablet RxNorm: 017145 Take 1 Tablet(s) Oral every day 022 2021 Inactive gabapentin 300 mg capsule RxNorm: 801421 Take 1 Capsule(s) Oral three times a day 022 2021 Inactive montelukast 10 mg tablet RxNorm: 935549 Take 1 Tablet(s) Oral every day 022 2021 Inactive cholecalciferol (vitamin D3) 50 mcg (2,000 unit) tablet RxNorm: 720807 Take 1 Tablet(s) Oral every day 022 2022 Inactive Myrbetriq 50 mg tablet,extended release RxNorm: 5143153 1 Tablet(s) Oral every day 022 No Stop Date Active Ozempic 0.25 mg or 0.5 mg (2 mg/1.5 mL) subcutaneous pen injector RxNorm: 0611073 inject 0.5 milligrams subcutaneously every week 2021 Inactive Ozempic 0.25 mg or 0.5 mg (2 mg/1.5 mL) subcutaneous pen injector RxNorm: 1464370 Take 0.5 Capsule(s) Injection once a week 2021 Inactive omeprazole 20 mg capsule,delayed release RxNorm: 287274 Take 1 Capsule(s) Oral every evening 2020 Inactive Ozempic 0.25 mg or 0.5 mg (2 mg/1.5 mL) subcutaneous pen injector RxNorm: 8099737 Take 0.25 Milligram(s) Subcutaneous once a week 2021 Inactive Easy Touch Alcohol Prep Pads RxNorm: 232904 USE DIRECTED EACH MORNING 2021 Inactive Probiotic 10 billion cell capsule RxNorm: 3306511 Take 1 Capsule(s) Oral every day 2021 Inactive levothyroxine 50 mcg tablet RxNorm: 058694 Take 1 Tablet(s) Oral every day 2020 Inactive Acid Chairman [employer] Chief Executive Officer (famotidine) 20 mg tablet RxNorm: 450438 Take 1 Tablet(s) Oral every morning 2020 Inactive Heartburn Relief (famotidine) 10 mg tablet RxNorm: 935544 Take 1 Tablet(s) Oral QAM 2020 Inactive levothyroxine 50 mcg tablet RxNorm: 135360 Take 1 Tablet(s) Oral QD 2020 Inactive Singulair 10 mg tablet RxNorm: 973914 TAKE (1) TABLET BY MOUTH DAILY 2020 Inactive metformin 1,000 mg tablet RxNorm: 735631 1 Tablet(s) Oral two times a day 2021 Inactive lisinopril 2.5 mg tablet RxNorm: 258585 Take 1 Tablet(s) Oral every day 2020 Inactive hydrochlorothiazide 25 mg tablet RxNorm: 236490 Take 1 Tablet(s) Oral every day /10/ 2021 Inactive ondansetron 4 mg disintegrating tablet RxNorm: 828847 1 Tablet(s) Oral two times a day 021 2020 Inactive Sudafed 12 Hour 120 mg tablet,extended release RxNorm: 0601035 TAKE 1 TABLET BY MOUTH EVERY 12 HOURS NEEDED 021 2021 Inactive Heartburn Relief (famotidine) 10 mg tablet RxNorm: 920045 Take 1 Tablet(s) Oral every morning 021 2020 Inactive omeprazole 20 mg capsule,delayed release RxNorm: 852838 1 Capsule(s) Oral every evening 021 2020 Inactive sertraline 100 mg tablet RxNorm: 861486 2 Tablet(s) Oral every day 021 2020 Inactive levothyroxine 50 mcg tablet RxNorm: 553259 TAKE (1) TABLET BY MOUTH DAILY 021 2020 Inactive metformin 500 mg tablet RxNorm: 617317 1 Tablet(s) Oral two times a day take with 500mg to equal 1000mg 021 2020 Inactive gabapentin 300 mg capsule RxNorm: 456065 TAKE 1 CAPSULE BY MOUTH THREE TIMES A DAY 021 2020 Inactive lisinopril 2.5 mg tablet RxNorm: 557575 TAKE 1 TABLET BY MOUTH DAILY 021 2020 Inactive gabapentin 300 mg capsule RxNorm: 078326 TAKE 1 CAPSULE BY MOUTH THREE TIMES A DAY 021 2020 Inactive Singulair 10 mg tablet RxNorm: 004752 TAKE (1) TABLET BY MOUTH DAILY 021 2020 Inactive metformin 1,000 mg tablet RxNorm: 389748 1 Tablet(s) Oral two times a day 021 2020 Inactive atorvastatin 40 mg tablet RxNorm: 027096 1 Tablet(s) Oral every day 021 2020 Inactive omeprazole 20 mg capsule,delayed release RxNorm: 079840 1 Capsule(s) Oral every evening 021 2020 Inactive famotidine 10 mg tablet RxNorm: 337542 1 Tablet(s) Oral every morning 2020 Inactive Alcohol Prep Pads RxNorm: 486410 USE EACH MORNING 2020 Inactive omeprazole 20 mg capsule,delayed release RxNorm: 663389 1 Capsule(s) Oral two times a day 2021 Inactive omeprazole 20 mg capsule,delayed release RxNorm: 723442 TAKE 1 CAPSULE BY MOUTH EVERY DAY 2021 Inactive Macrobid 100 mg capsule RxNorm: 574589 1 Capsule(s) Oral every 12 hours with food 2020 Inactive omeprazole 20 mg capsule,delayed release RxNorm: 366161 1 Capsule(s) Oral two times a day 2021 Inactive metformin 1,000 mg tablet RxNorm: 396288 1 Tablet(s) Oral two times a day 2020 Inactive start on September 11, 2020 metformin 500 mg tablet RxNorm: 587582 1 Tablet(s) Oral two times a day take with 500mg to equal 1000mg 2019 Inactive gabapentin 300 mg capsule RxNorm: 869596 TAKE 1 CAPSULE BY MOUTH THREE TIMES DAILY 2020 Inactive cetirizine 10 mg tablet RxNorm: 0417283 TAKE (1) TABLET BY MOUTH DAILY 2020 Inactive metformin 500 mg tablet RxNorm: 264073 1 Tablet(s) Oral two times a day 2019 Inactive loperamide 2 mg tablet RxNorm: 042433 1 Tablet(s) Oral as needed take one tablet after each loose stool, maximum of 8 tablets in 24 hours 2021 Inactive Sudafed 12 Hour 120 mg tablet,extended release RxNorm: 1726991 TAKE 1 TABLET BY MOUTH EVERY 12 HOURS NEEDED 2019 Inactive hydrochlorothiazide 25 mg tablet RxNorm: 369231 TAKE (1) TABLET BY MOUTH EVERY DAY 020 2019 Inactive omeprazole 20 mg capsule,delayed release RxNorm: 635763 TAKE 1 CAPSULE BY MOUTH EVERY DAY 020 2020 Inactive metformin 500 mg tablet RxNorm: 409928 1 Tablet(s) Oral every day 020 2019 Inactive True Metrix Glucose Test Strip RxNorm: 1 Test Strips Miscellaneous two times a day as needed No Stop Date Active metformin 500 mg tablet RxNorm: 234435 1 Tablet(s) Oral every day 020 2019 Inactive diclofenac sodium 75 mg tablet,delayed release RxNorm: 028259 1 Tablet(s) PO BID 020 2021 Inactive This refill negates all other refills of this medication Sudafed 12 Hour 120 mg tablet,extended release RxNorm: 6493066 TAKE 1 TABLET BY MOUTH EVERY 12 HOURS NEEDED 020 2019 Inactive True Metrix Glucose Test Strip RxNorm: 1 Test Strips Miscellaneous every morning 020 2019 Inactive 100/container True Metrix Glucose Test Strip RxNorm: 1 Test Strips Miscellaneous QA 020 2019 Inactive 100/container loperamide 2 mg tablet RxNorm: 948821 1 Tablet(s) Oral as needed take one tablet after each loose stool, maximum of 8 tablets in 24 hours 020 2019 Inactive cetirizine 10 mg tablet RxNorm: 6565678 1 Tablet(s) PO daily 020 2019 Inactive loperamide 2 mg tablet RxNorm: 156882 1 Tablet(s) Oral as needed take one tablet after each loose stool, maximum of 8 tablets in 24 hours 020 2019 Inactive quetiapine 100 mg tablet RxNorm: 269498 1 Tablet(s) Oral every night at bedtime 020 2019 Inactive levothyroxine 50 mcg tablet RxNorm: 906009 1 Tablet(s) PO daily 042020 Inactive gabapentin 300 mg capsule RxNorm: 606420 1 Capsule(s) PO TID 2019 Inactive levothyroxine 50 mcg tablet RxNorm: 387181 1 Tablet(s) PO daily 2019 Inactive lisinopril 2.5 mg tablet RxNorm: 602309 1 Tablet(s) PO daily 2020 Inactive gabapentin 300 mg capsule RxNorm: 806339 1 Capsule(s) PO TID 2019 Inactive cetirizine 10 mg tablet RxNorm: 3086457 1 Tablet(s) PO daily 2019 Inactive Singulair 10 mg tablet RxNorm: 295742 1 Tablet(s) PO daily 2020 Inactive gentamicin 0.3 % eye drops RxNorm: 716791 1 Drop(s) ophthalmic (eye) four times a day 2019 Inactive gentamicin 0.3 % eye drops RxNorm: 469470 1 Drop(s) ophthalmic (eye) four times a day 2019 Inactive gentamicin 0.3 % eye drops RxNorm: 221797 1 Drop(s) ophthalmic (eye) four times a day 2019 Inactive hydrochlorothiazide 25 mg tablet RxNorm: 730282 1 Tablet(s) Oral every day 2019 Inactive Sudafed 12 Hour 120 mg tablet,extended release RxNorm: 6858269 TAKE (1) TABLET BY MOUTH EVERY 12 HOURS NEEDED 2019 Inactive loperamide 2 mg tablet RxNorm: 319726 1 Tablet(s) Oral as needed take one tablet after each loose stool, maximum of 8 tablets in 24 hours 020 2019 Inactive loperamide 2 mg tablet RxNorm: 023322 1 Tablet(s) Oral as needed take one tablet after each loose stool, maximum of 8 tablets in 24 hours 020 2019 Inactive atorvastatin 40 mg tablet RxNorm: 640672 1 Tablet(s) Oral every day 020 2020 Inactive quetiapine 100 mg tablet RxNorm: 399905 1 Tablet(s) Oral every night at bedtime 2019 Inactive sertraline 100 mg tablet RxNorm: 779974 1 Tablet(s) Oral 2019 Inactive omeprazole 20 mg capsule,delayed release RxNorm: 837555 1 Capsule(s) Oral every day 2019 Inactive amoxicillin 250 mg capsule RxNorm: 457001 1 Capsule(s) Oral three times a day 2019 Inactive multivitamin with iron-mineral tablet RxNorm: 1 Tablet(s) Oral every day 2021 Inactive cetirizine 10 mg tablet RxNorm: 5174961 1 Tablet(s) PO daily 2019 Inactive This refill negates all other refills of this medication. Please do not auto refill Singulair 10 mg tablet RxNorm: 970413 1 Tablet(s) PO daily 2019 Inactive This refill negates all other refills of this medication gabapentin 300 mg capsule RxNorm: 255017 1 Capsule(s) PO TID 2019 Inactive lisinopril 2.5 mg tablet RxNorm: 847377 1 Tablet(s) PO daily 2019 Inactive levothyroxine 50 mcg tablet RxNorm: 911246 1 Tablet(s) PO daily 2019 Inactive This refill negates all other refills of this medication hydrochlorothiazide 25 mg tablet RxNorm: 651606 1 Tablet(s) Oral every day 2019 Inactive fenugreek seed extract 500 mg capsule RxNorm: 1 Capsule(s) Oral three times a day 2021 Inactive Alcohol Prep Pads RxNorm: 809263 1 Patch TOP QAM 020 2020 Inactive loperamide 2 mg tablet RxNorm: 749499 1 Tablet(s) Oral as needed take one [...] 2019 Inactive hydrochlorothiazide 25 mg tablet RxNorm: 732183 1 Tablet(s) Oral every day 2019 Inactive Sudafed 12 Hour 120 mg tablet,extended release RxNorm: 9038924 1 Tablet(s) Oral every 12 hours as needed 2018 Inactive omeprazole 20 mg capsule,delayed release RxNorm: 057080 1 Capsule(s) Oral every day 2019 Inactive Sudafed 12 Hour 120 mg tablet,extended release RxNorm: 2098141 1 Tablet(s) Oral every 12 hours as needed 2018 Inactive pantoprazole 40 mg tablet,delayed release RxNorm: 347748 1 Tablet(s) Oral every day 2018 Inactive discontinue any other H2Blkr. and PPI albuterol sulfate 2.5 mg/3 mL (0.083 %) solution for nebulization RxNorm: 819479 1 Vial Inhalation every four hours as needed as needed for dyspnea 2019 Inactive 60/box. This refill negates all other refills of this medication. Please do not fill early. Please do not auto refill. Symbicort 160 mcg-4.5 mcg/actuation HFA aerosol inhaler RxNorm: 4656815 2 Puff(s) INH BID No Stop Date Active Alcohol Prep Pads RxNorm: 514898 1 Patch TOP QAM 019 2019 Inactive Ventolin HFA 90 mcg/actuation aerosol inhaler RxNorm: 623016 2 Puff(s) INH QID 019 2019 Inactive Please do not fill early. Please do not auto refill. This refill negates all other refills of this medication True Metrix Glucose Test Strip RxNorm: 1 Test Strips Miscellaneous QA 019 2019 Inactive 100/container atorvastatin 40 mg tablet RxNorm: 448760 1 Tablet(s) Oral every day 019 2019 Inactive buspirone 7.5 mg tablet RxNorm: 782792 1 Tablet(s) PO BID 019 2020 Inactive This refill negates all other refills of this medication hydrochlorothiazide 12.5 mg tablet RxNorm: 359902 1 Tablet(s) PO QAM 019 2019 Inactive levmetamfetamine 50 mg nasal inhaler RxNorm: 1 Unit(s) NASAL Q3-4H Do not use more than every 3 hours or 8 times/24hours 019 2021 Inactive Please do not auto refill. This refill negates all other refills of this medication Ventolin HFA 90 mcg/actuation aerosol inhaler RxNorm: 579492 2 Puff(s) INH QID 019 2018 Inactive Please do not fill early. Please do not auto refill. This refill negates all other refills of this medication Singulair 10 mg tablet RxNorm: 873258 1 Tablet(s) PO daily 019 2019 Inactive This refill negates all other refills of this medication cetirizine 10 mg tablet RxNorm: 8852789 1 Tablet(s) PO daily 019 2019 Inactive This refill negates all other refills of this medication. Please do not auto refill levothyroxine 50 mcg tablet RxNorm: 412174 1 Tablet(s) PO daily 019 2019 Inactive This refill negates all other refills of this medication diclofenac sodium 75 mg tablet,delayed release RxNorm: 232389 1 Tablet(s) PO BID 019 2019 Inactive This refill negates all other refills of this medication ranitidine 150 mg tablet RxNorm: 931282 1 Tablet(s) PO BID 019 2018 Inactive This refill negates all other refills of this medication Calcium 600-D3 Plus (mag-zinc) 600 mg calcium-800 unit-50 mg tablet RxNorm: 1 Tablet(s) PO daily take an additonal tablet for itching. 019 2018 Inactive This refill negates all other refills of this medication albuterol sulfate 2.5 mg/3 mL (0.083 %) solution for nebulization RxNorm: 709238 1 Vial INH QID 2018 Inactive 60/box. This refill negates all other refills of this medication. Please do not fill early. Please do not auto refill. lisinopril 2.5 mg tablet RxNorm: 735065 1 Tablet(s) PO daily 019 2019 Inactive gabapentin 300 mg capsule RxNorm: 675732 1 Capsule(s) PO TID 019 2019 Inactive atorvastatin 20 mg tablet RxNorm: 808808 1 Tablet(s) PO QHS 2018 Inactive This refill negates all other refills of this medication TRUEplus Lancets 30 gauge RxNorm: 1 Lancets Miscellaneous QAM 019 2018 Inactive 100/box gabapentin 300 mg capsule RxNorm: 734854 1 Capsule(s) PO TID 019 2018 Inactive Flintstones Complete (iron) 18 mg iron chewable tablet RxNorm: 1 Tablet(s) PO daily 019 2021 Inactive This refill negates all other refills of this medication gabapentin 300 mg capsule RxNorm: 534544 1 Capsule(s) PO TID as needed 019 2018 Inactive True Metrix Glucose Test Strip RxNorm: 1 Test Strips Miscellaneous QA 019 2018 Inactive 100/container Alcohol Prep Pads RxNorm: 840040 1 Patch TOP [facility] 019 2018 Inactive TRUEplus Lancets 30 gauge RxNorm: 1 Lancets Miscellaneous QA 019 2018 Inactive 100/box lisinopril 2.5 mg tablet RxNorm: 776650 1 Tablet(s) PO daily 019 2018 Inactive ranitidine 150 mg tablet RxNorm: 159192 1 Tablet(s) PO BID 019 2018 Inactive This refill negates all other refills of this medication albuterol sulfate 2.5 mg/3 mL (0.083 %) solution for nebulization RxNorm: 268285 1 Vial INH QID 019 2018 Inactive [...] this medication gabapentin 300 mg capsule RxNorm: 413341 1 Capsule(s) PO TID as needed 019 2018 Inactive atorvastatin 20 mg tablet RxNorm: 870278 1 Tablet(s) PO QHS 019 2018 Inactive This refill negates all other refills of this medication trazodone 50 mg tablet RxNorm: 010056 1 Tablet(s) PO QHS 019 2018 Inactive This refill negates all other refills of this medication Ventolin HFA 90 mcg/actuation aerosol inhaler RxNorm: 275748 2 Puff(s) INH QID 019 2018 Inactive Please do not fill early. Please do not auto refill. This refill negates all other refills of this medication Calcium 600-D3 Plus 600 mg calcium-800 unit-50 mg tablet RxNorm: 1 Tablet(s) PO daily take an additonal tablet for itching. 019 2018 Inactive This refill negates all other refills of this medication Singulair 10 mg tablet RxNorm: 270404 1 Tablet(s) PO daily 019 2018 Inactive This refill negates all other refills of this medication buspirone 7.5 mg tablet RxNorm: 745096 1 Tablet(s) PO BID 019 2018 Inactive This refill negates all other refills of this medication diclofenac sodium 75 mg tablet,delayed release RxNorm: 004896 1 Tablet(s) PO BID 019 2018 Inactive This refill negates all other refills of this medication hydrochlorothiazide 12.5 mg tablet RxNorm: 421585 1 Tablet(s) PO QAM 019 2018 Inactive metoprolol succinate ER 50 mg tablet,extended release 24 hr RxNorm: 655487 1 Tablet(s) PO daily 019 2018 Inactive This refill negates all other refills of this medication levothyroxine 50 mcg tablet RxNorm: 425890 1 Tablet(s) PO daily 019 2018 Inactive This refill negates all other refills of this medication cetirizine 10 mg tablet RxNorm: 9510562 1 Tablet(s) PO daily 019 2018 Inactive This refill negates all other refills of this medication. Please do not auto refill Flintstones Complete (iron) 18 mg iron chewable tablet RxNorm: 1 Tablet(s) PO daily 019 2018 Inactive This refill negates all other refills of this medication buspirone 7.5 mg tablet RxNorm: 405275 1 Tablet(s) PO BID 019 2018 Inactive cetirizine 10 mg tablet RxNorm: 5019533 1 Tablet(s) PO daily 018 2018 Inactive Guaiasorb DM 10 mg-100 mg/5 mL oral liquid RxNorm: 895486 10 Milliliter(s) PO As needed every 4 hr 2018 Inactive Vicks Vaporub 4.7 %-1.2 %-2.6 % topical ointment RxNorm: 6260337 1 Application TOP TID 2018 Inactive levmetamfetamine 50 mg nasal inhaler RxNorm: 1 Unit(s) NASAL Q3-4H 2017 Inactive sertraline 50 mg tablet RxNorm: 289141 1 Tablet(s) PO daily 2018 Inactive Please note dose trazodone 50 mg tablet RxNorm: 311960 1 Tablet(s) PO QHS 2018 Inactive sertraline 50 mg tablet RxNorm: 776260 1 Tablet(s) PO daily 2017 Inactive amoxicillin 500 mg tablet RxNorm: 144073 1 Tablet(s) PO Q12H 2017 Inactive albuterol sulfate 2.5 mg/3 mL (0.083 %) solution for nebulization RxNorm: 829730 1 Vial INH QID 2018 Inactive 60/box. Please do not fill early. Please do not auto refill. Prozac 10 mg capsule RxNorm: 870678 1 Capsule(s) PO daily 2017 Inactive buspirone 7.5 mg tablet RxNorm: 728675 1 Tablet(s) PO BID 2018 Inactive gabapentin 300 mg capsule RxNorm: 902136 1 Capsule(s) PO TID as needed 2018 Inactive hydrochlorothiazide 12.5 mg tablet RxNorm: 669953 1 Tablet(s) PO QAM 2018 Inactive ranitidine 150 mg tablet RxNorm: 667158 1 Tablet(s) PO BID 2018 Inactive Macrobid 100 mg capsule RxNorm: 363821 1 Capsule(s) PO Q12H 018 2017 Inactive Singulair 10 mg tablet RxNorm: 270786 1 Tablet(s) PO daily 018 2018 Inactive Ventolin HFA 90 mcg/actuation aerosol inhaler RxNorm: 4270108 2 Puff(s) INH QID 018 2018 Inactive Singulair 10 mg tablet RxNorm: 112664 1 Tablet(s) PO daily 018 2017 Inactive buspirone 7.5 mg tablet RxNorm: 807621 1 Tablet(s) PO BID 018 2017 Inactive Prozac 10 mg capsule RxNorm: 983180 1 Capsule(s) PO daily 018 2017 Inactive diclofenac sodium 75 mg tablet,delayed release RxNorm: 479519 1 Tablet(s) PO BID 018 2017 Inactive lisinopril 2.5 mg tablet RxNorm: 634055 1 Tablet(s) PO daily 018 2017 Inactive Neilmed Pediatric Sinus Rinse Refill packet RxNorm: 1 Unit Dose NASAL PRN 018 2021 Inactive metoprolol succinate ER 50 mg tablet,extended release 24 hr RxNorm: 550512 1 Tablet(s) PO daily 018 2017 Inactive levothyroxine 50 mcg tablet RxNorm: 401158 1 Tablet(s) PO daily 018 2017 Inactive TRUEplus Lancets 30 gauge RxNorm: 1 Lancets Miscellaneous QAM 018 2017 Inactive 100/box Ventolin HFA 90 mcg/actuation aerosol inhaler RxNorm: 071524 2 Puff(s) INH QID 018 2017 Inactive Aleve 220 mg capsule RxNorm: 0731883 1 Capsule(s) PO BID 018 2018 Inactive ranitidine 150 mg tablet RxNorm: 701131 1 Tablet(s) PO BID 018 2017 Inactive gabapentin 300 mg capsule RxNorm: 420290 1 Capsule(s) PO TID as needed 018 2017 Inactive atorvastatin 20 mg tablet RxNorm: 433161 1 Tablet(s) PO QHS 018 2017 Inactive True Metrix Glucose Test Strip RxNorm: 1 Test Strips Miscellaneous QAM 018 2017 Inactive 50/container Calcium 600-D3 Plus 600 mg calcium-800 unit-50 mg tablet RxNorm: 1 Tablet(s) PO daily take an additonal tablet for itching. 018 2017 Inactive hydrochlorothiazide 12.5 mg tablet RxNorm: 705740 1 Tablet(s) PO QAM 018 2017 Inactive Flintstones Complete (iron) 18 mg iron chewable tablet RxNorm: 1 Tablet(s) PO daily 018 2017 Inactive True Metrix Glucose Meter RxNorm: miscellaneous 019 2018 Inactive sertraline 50 mg tablet RxNorm: 699156 1 Tablet(s) PO daily 020 2019 Inactive loperamide 2 mg tablet RxNorm: 549428 oral 019 2018 Inactive d-mannose oral powder RxNorm: PO 018 2021 Inactive Symbicort 160 mcg-4.5 mcg/actuation HFA aerosol inhaler RxNorm: 7404286 2 Puff(s) INH BID 019 2018 Inactive [...] VACP 1 Fall Risk Assessment SNOMED CT: 81540885 4 CPT-4: DFRA01/13/2021emmes Fany AssessmentCPT-4: DSWA12/17/2020Urinalysis, dip stickCPT-4: 932624609/24/2020Patient Health QuestionnaireCPT-4: DPHQ 08/19/2020ElectrocardiogramCPT-4: 315539505/14/2020Tobacco Assessment/Screening CPT-4: TCA01/01/2020Fall Risk AssessmentSNOMED CT: 732087539 CPT-4: DFRA01/01/2020Functional AssessmentCPT-4: DFA01/01/2020[place] Fany AssessmentCPT-4: DSWA11/28/2019Patient Health QuestionnaireCPT-4: DPHQ11/28/2019 [place] Fany AssessmentCPT-4: DS10/17/2019HypertensionCPT-4: HTN10/17/[address]: 179522317 CPT-4: DFRA09/19/2019Functional AssessmentCPT-4: DFA111/20/2018Urinalysis, dip stickCPT-4: 4185779Tobacco Assessment/ScreeningCPT-4: TCA05/24/2019 Patient Health QuestionnaireCPT-4: DPHQ05/24/2019AHA/REBECCA Classification AssessmentCPT-4: DAHA04/25/2019Controlled Substance ReportCPT-4: CTRSU04/25/2019 Urinalysis, dip stickCPT-4: 4484738Urinalysis, dip stickCPT-4: 81694 03/28/20199965C4B-VmbhjikgzdhatytZFK-0: 58579YcizagzG5G-HiertnqvrurdfulURL-4: 05854 EsdamkvO4U-WomuaculhybrdjeMCC-9: 51784KecavlsO9V-MyqbxhzxwofopglITR-7: 24724 RlkppnxH8D-PzoafjcawoecmpySVQ-4: 50448LdsnosgO0J-NnargymcgykmlmxYTM-9: 39312 HecqzsfR3O-CwtnmwbgzpdzajqPGG-8: 60481ZyadsowZ0Z-NkpamnpdrlotvunLHS-7: [address]: 161554944 CPT-4: J45Myvtkog Reason For Visit No Reason For Visit data Plan of Care Planned Activity Notes Codes Status Date Referral: Pending Gynecology Referral Informatio n Referral ProcessedReferral: Pending Pulmonology Referral InformationReferralProcessed Referral: Pending Psychiatry Referral InformationReferralInitiatedReferral: Pending Respiratory Services Referral InformationReferralInitiatedReferral: Pending Ophthalmology Referral InformationReferralInitiatedReferral: [facility] WPtel: [address] [id number] USWriter placed a call out to the patient to notify her that it has been recommended that she be seenby a urologist. Patient agreed to be seen, does not have a provider of choice and no transportationissues. Lanolin Plant Operator faxed referral and clinical notes to [facility] in [place], [place] near the patient's home. Patient to [...] seen and prefers a provider in the [place] or [place] area. Lanolin Plant Operator placed a call out to everyone listed in the area and the only location that was able to accept the patient's insurance was [facility] [place] [address] [place] [address] and spoke with Maylin. Maylin asked that the patient's referral, face sheet and visit notes be faxed to . Lanolin Plant Operator faxed over requested documents. Patient appointment confirmation letter generated and mailed to her home address. Patient to call to schedule an appointment.ProcessedReferral: [facility] WPtel: [address] [place] [address] [address] [id number] USPatient notified that it has been advised that she be seen by Neurology. Patient agreed to be seen and prefers to be seen by a provider in the [place], [place] area. Patient denies any concerns with transportation, and prefers to schedule her own appointment. Lanolin Plant Operator placed a call out to [facility] and spoke with Neeraj P: who confirmed that their office is able to acceptnew patients and the patient's insurance. After confirming the providers fax number, song writer faxed over the patient's referral, and [...]
--- OUTSIDE RECORDS SUMMARY | 2023-12-07 02:19 | XMS_ITS | CCD ---
Author Name Leena Culver NP Address [address] [place] [address] [address] [place] [address] Phone Organization [employer] [facility] Phone Care Team Providers Care Creative Producer Name Role Phone Anna Culver NP Primary Care Provider Unav ailable Unavailable Chronic Care Management Unavaila ble Summary Purpose DataExchange Insurance Providers Payer name Policy type / Coverage type Covered republican ID Effective Begin Date Effective End Date SUKI MAYO [id number] Unknown Unknown Family history Mother Diagnosis Age [...] 05/31/2018 Education level Unknown Some High School 10th05/31/20186623EcfzuqapxoOwuiefzLruoobibui40/29/2018Tobacco historySNOMED CT: 378297015Fcd never smoked or chewed ptcotqj7805/31/2018Alcohol historySNOMED CT: 198172708Ntsms drinks zojsfjp3105/31/2018Has the patient ever used illegal drugs? UnknownHas never used illegal drugs05/31/2018DNR Order/ Advanced Directive UnknownFull Code05/31/2018 Allergies, Adverse Reactions, Alerts Substance Reaction Codes Entered Date Inactivated Date Status OxyContin itch, RxNorm: 667221 01/13/2021 No Inactive Da te Active *No known food allergies Efanuul1009/06/2018No Inactive DateActiveMethylprednisolonehivesRxNorm: 6902 09/06/2018No Inactive DateActive Problems Condition Codes Effective Dates Condition St atus Edema, unspecified ICD-10: R60.9 ICD-9: 782.310/06/2018ActiveGERD (gastroesophageal reflux disease)ICD-10: K21.9 ICD-9: 530.8112ActiveObstructive sleep apnea (adult) (pediatric)ICD-10: G47.33 ICD-9: 327.2309ActiveType 2 diabetes mellitus with peripheral neuropathy ICD-10: E11.42 ICD-9: 250.6002ActiveAdult BMI 50.0-59.9 kg/sq mICD-10: Z68.43 ICD-9: V85.4308ActiveAllergic [...] for depressionICD-10: Z13.31 ICD-9: V79.004/1ResolvedAnorexiaICD-10: R63.0 ICD-9: 783.003/esolvedBlisterICD-10: T14.8XXA ICD-9: 919.206/esolvedChronic kidney disease, stage 2 (mild)ICD-10: N18.2 ICD-9: 585.201/esolvedCOVID-19 virus RNA test result positive at limit of detectionICD-10: U07.1 ICD-9: 079.8909/esolvedDiarrheaICD-10: R19.7 ICD-9: 787.9111/esolvedDyspnea, unspecifiedICD-10: R06.00 ICD-9: 786.0902/08/2019ResolvedElevated liver enzymesICD-10: R74.8 ICD-9: 790.504/esolvedEncounter for screening for tobacco useICD-10: Z01.89 ICD-9: V72.8503ResolvedEncounter for screening, unspecifiedICD-10: Z13.9 ICD-9: V82.9111/06/2017ResolvedFamily history of seizuresICD-10: Z84.89 ICD-9: V19.807/esolvedHyperlipidemia, unspecifiedICD-10: E78.5 ICD-9: 272.408ResolvedLong term (current) use of non-steroidal anti- inflammatories (NSAID)ICD-10: Z79.1 ICD-9: V58.6409ResolvedPatient Not SeenICD-10: UXZ.01 ICD-9: XZ0.107ResolvedPatient not seenICD-10: UXZ.01 ICD-9: UXZ.0112esolvedUpper respiratory infectionICD-10: J06.9 ICD-9: 465.908/esolvedSyncope and collapseICD-10: R55 ICD-9: 780.ActiveAdjustment disorder with mixed anxiety and depressed moodICD-10: F43.23 ICD-9: 309.2812/01/2018ActivePost-traumatic stress disorder, unspecifiedICD-10: F43.10 ICD-9: 309.8112ActiveHistory of bladder surgeryICD-10: Z98.890 ICD-9: V45.8904/1ActiveUrinary retention with incomplete bladder emptying ICD-10: R33.9 ICD-9: 788.2104/1ActiveEncounter for immunizationICD-10: Z23 ICD-9: V04.8109/06/2020InactiveApnea, not elsewhere classifiedICD-10: R06.81 ICD-9: 786.0305/10/2018InactiveChest pain, unspecifiedICD-10: R07.9 ICD-9: 786.5002/InactiveChronic kidney disease, unspecifiedICD-10: N18.9 ICD-9: 585.909/InactiveEncounter for immunizationICD-10: Z23 ICD-9: V03.907/InactiveEncounter for preprocedural cardiovascular examinationICD-10: Z01.810 ICD-9: V72.8106/InactiveHeadacheICD-10: R51 ICD-9: 784.001/10/2018InactiveOther nursing home (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ICD-10: Z79.899 ICD-9: V58.6907/InactiveType [...] 787.6003ActiveMixed incontinenceICD-10: N39.46 ICD-9: 788.3308ActiveAsthmaICD-10: J45.909 ICD-9: 493.9011/03/2018ActiveAbnormal electrocardiogram [ECG] [EKG]ICD-10: R94.31 ICD-9: 794.3108Active Medications Medication Codes Instructions Start Date Stop Date Status Fill Instructions cholecalciferol (vitamin D3) 50 mcg (2,000 unit) tablet RxNorm: 308005 Take 1 Tablet(s) Oral every day 022 2022 Inactive Myrbetriq 50 mg tablet,extended release RxNorm: 7915426 1 Tablet(s) Oral every day 022 No Stop Date Active Ozempic 0.25 mg or 0.5 mg (2 mg/1.5 mL) subcutaneous pen injector RxNorm: 4040362 inject 0.5 milligrams subcutaneously every week 022 2021 Inactive Ozempic 0.25 mg or 0.5 mg (2 mg/1.5 mL) subcutaneous pen injector RxNorm: 0193702 Take 0.5 Capsule(s) Injection once a week 01/05/2 022 03/01/ 2022 Inactive omeprazole 20 mg capsule,delayed release RxNorm: 836114 Take 1 Capsule(s) Oral every evening 2020 Inactive Ozempic 0.25 mg or 0.5 mg (2 mg/1.5 mL) subcutaneous pen injector RxNorm: 2239657 Take 0.25 Milligram(s) Subcutaneous once a week 2021 Inactive Easy Touch Alcohol Prep Pads RxNorm: 857055 USE DIRECTED EACH MORNING 2021 Inactive Probiotic 10 billion cell capsule RxNorm: 5091877 Take 1 Capsule(s) Oral every day 2021 Inactive levothyroxine 50 mcg tablet RxNorm: 308861 Take 1 Tablet(s) Oral every day 2020 Inactive Acid Hide Tanner (famotidine) 20 mg tablet RxNorm: 704190 Take 1 Tablet(s) Oral every morning 2020 Inactive Heartburn Relief (famotidine) 10 mg tablet RxNorm: 483533 Take 1 Tablet(s) Oral QAM 021 2020 Inactive levothyroxine 50 mcg tablet RxNorm: 043655 Take 1 Tablet(s) Oral QD 2020 Inactive Singulair 10 mg tablet RxNorm: 044091 TAKE (1) TABLET BY MOUTH DAILY 2020 Inactive metformin 1,000 mg tablet RxNorm: 055081 1 Tablet(s) Oral two times a day 021 2021 Inactive lisinopril 2.5 mg tablet RxNorm: 559453 Take 1 Tablet(s) Oral every day 021 2020 Inactive hydrochlorothiazide 25 mg tablet RxNorm: 568731 Take 1 Tablet(s) Oral every day 021 2020 Inactive ondansetron 4 mg disintegrating tablet RxNorm: 079062 1 Tablet(s) Oral two times a day 021 2020 Inactive Sudafed 12 Hour 120 mg tablet,extended release RxNorm: 0922265 TAKE 1 TABLET BY MOUTH EVERY 12 HOURS NEEDED 021 2021 Inactive Heartburn Relief (famotidine) 10 mg tablet RxNorm: 781984 Take 1 Tablet(s) Oral every morning 021 2020 Inactive omeprazole 20 mg capsule,delayed release RxNorm: 243481 1 Capsule(s) Oral every evening 021 2020 Inactive sertraline 100 mg tablet RxNorm: 791371 2 Tablet(s) Oral every day 021 2020 Inactive levothyroxine 50 mcg tablet RxNorm: 863827 TAKE (1) TABLET BY MOUTH DAILY 021 2020 Inactive metformin 500 mg tablet RxNorm: 684622 1 Tablet(s) Oral two times a day take with 500mg to equal 1000mg 021 2020 Inactive gabapentin 300 mg capsule RxNorm: 263983 TAKE 1 CAPSULE BY MOUTH THREE TIMES A DAY 021 2020 Inactive lisinopril 2.5 mg tablet RxNorm: 330369 TAKE 1 TABLET BY MOUTH DAILY 021 2020 Inactive gabapentin 300 mg capsule RxNorm: 471975 TAKE 1 CAPSULE BY MOUTH THREE TIMES A DAY 021 2020 Inactive Singulair 10 mg tablet RxNorm: 941035 TAKE (1) TABLET BY MOUTH DAILY 021 2020 Inactive metformin 1,000 mg tablet RxNorm: 785271 1 Tablet(s) Oral two times a day 021 2020 Inactive atorvastatin 40 mg tablet RxNorm: 324290 1 Tablet(s) Oral every day 021 2020 Inactive omeprazole 20 mg capsule,delayed release RxNorm: 481083 1 Capsule(s) Oral every evening 021 2020 Inactive famotidine 10 mg tablet RxNorm: 457339 1 Tablet(s) Oral every morning 021 2020 Inactive Alcohol Prep Pads RxNorm: 672005 USE EACH MORNING 2020 Inactive omeprazole 20 mg capsule,delayed release RxNorm: 289927 1 Capsule(s) Oral two times a day 2021 Inactive omeprazole 20 mg capsule,delayed release RxNorm: 242396 TAKE 1 CAPSULE BY MOUTH EVERY DAY 2021 Inactive Macrobid 100 mg capsule RxNorm: 873608 1 Capsule(s) Oral every 12 hours with food 2020 Inactive omeprazole 20 mg capsule,delayed release RxNorm: 895163 1 Capsule(s) Oral two times a day 2021 Inactive metformin 1,000 mg tablet RxNorm: 043126 1 Tablet(s) Oral two times a day 2020 Inactive start on September 11, 2020 metformin 500 mg tablet RxNorm: 567779 1 Tablet(s) Oral two times a day take with 500mg to equal 1000mg 2019 Inactive gabapentin 300 mg capsule RxNorm: 066335 TAKE 1 CAPSULE BY MOUTH THREE TIMES DAILY 2020 Inactive cetirizine 10 mg tablet RxNorm: 0782571 TAKE (1) TABLET BY MOUTH DAILY 2020 Inactive metformin 500 mg tablet RxNorm: 006701 1 Tablet(s) Oral two times a day 2019 Inactive loperamide 2 mg tablet RxNorm: 365080 1 Tablet(s) Oral as needed take one tablet after each loose stool, maximum of 8 tablets in 24 hours 2021 Inactive Sudafed 12 Hour 120 mg tablet,extended release RxNorm: 3624186 TAKE 1 TABLET BY MOUTH EVERY 12 HOURS NEEDED 2019 Inactive hydrochlorothiazide 25 mg tablet RxNorm: 174018 TAKE (1) TABLET BY MOUTH EVERY DAY 2019 Inactive omeprazole 20 mg capsule,delayed release RxNorm: 005278 TAKE 1 CAPSULE BY MOUTH EVERY DAY 2020 Inactive metformin 500 mg tablet RxNorm: 986957 1 Tablet(s) Oral every day 2019 Inactive True Metrix Glucose Test Strip RxNorm: 1 Test Strips Miscellaneous two times a day as needed No Stop Date Active metformin 500 mg tablet RxNorm: 564616 1 Tablet(s) Oral every day 2019 Inactive diclofenac sodium 75 mg tablet,delayed release RxNorm: 881965 1 Tablet(s) PO BID 2021 Inactive This refill negates all other refills of this medication Sudafed 12 Hour 120 mg tablet,extended release RxNorm: 0107404 TAKE 1 TABLET BY MOUTH EVERY 12 HOURS NEEDED 2019 Inactive True Metrix Glucose Test Strip RxNorm: 1 Test Strips Miscellaneous every morning 020 2019 Inactive 100/container True Metrix Glucose Test Strip RxNorm: 1 Test Strips Miscellaneous QAM 020 2019 Inactive 100/container loperamide 2 mg tablet RxNorm: 540399 1 Tablet(s) Oral as needed take one tablet after each loose stool, maximum of 8 tablets in 24 hours 020 2019 Inactive cetirizine 10 mg tablet RxNorm: 6463321 1 Tablet(s) PO daily 2019 Inactive loperamide 2 mg tablet RxNorm: 066545 1 Tablet(s) Oral as needed take one tablet after each loose stool, maximum of 8 tablets in 24 hours 020 2019 Inactive quetiapine 100 mg tablet RxNorm: 566551 1 Tablet(s) Oral every night at bedtime 020 2019 Inactive levothyroxine 50 mcg tablet RxNorm: 185234 1 Tablet(s) PO daily 020 2020 Inactive gabapentin 300 mg capsule RxNorm: 686484 1 Capsule(s) PO TID 020 2019 Inactive levothyroxine 50 mcg tablet RxNorm: 177265 1 Tablet(s) PO daily 2019 Inactive lisinopril 2.5 mg tablet RxNorm: 230587 1 Tablet(s) PO daily 2020 Inactive gabapentin 300 mg capsule RxNorm: 629218 1 Capsule(s) PO TID 2019 Inactive cetirizine 10 mg tablet RxNorm: 0799487 1 Tablet(s) PO daily 2019 Inactive Singulair 10 mg tablet RxNorm: 769037 1 Tablet(s) PO daily 2020 Inactive gentamicin 0.3 % eye drops RxNorm: 746148 1 Drop(s) ophthalmic (eye) four times a day 2019 Inactive gentamicin 0.3 % eye drops RxNorm: 063463 1 Drop(s) ophthalmic (eye) four times a day 2019 Inactive gentamicin 0.3 % eye drops RxNorm: 861229 1 Drop(s) ophthalmic (eye) four times a day 2019 Inactive hydrochlorothiazide 25 mg tablet RxNorm: 772712 1 Tablet(s) Oral every day 2019 Inactive Sudafed 12 Hour 120 mg tablet,extended release RxNorm: 8291070 TAKE (1) TABLET BY MOUTH EVERY 12 HOURS NEEDED 2019 Inactive loperamide 2 mg tablet RxNorm: 255223 1 Tablet(s) Oral as needed take one tablet after each loose stool, maximum of 8 tablets in 24 hours 2019 Inactive loperamide 2 mg tablet RxNorm: 973315 1 Tablet(s) Oral as needed take one tablet after each loose stool, maximum of 8 tablets in 24 hours 2019 Inactive atorvastatin 40 mg tablet RxNorm: 080479 1 Tablet(s) Oral every day 2020 Inactive quetiapine 100 mg tablet RxNorm: 580315 1 Tablet(s) Oral every night at bedtime 2019 Inactive sertraline 100 mg tablet RxNorm: 347954 1 Tablet(s) Oral 020 2019 Inactive omeprazole 20 mg capsule,delayed release RxNorm: 994272 1 Capsule(s) Oral every day 020 2019 Inactive amoxicillin 250 mg capsule RxNorm: 299075 1 Capsule(s) Oral three times a day 2019 Inactive multivitamin with iron-mineral tablet RxNorm: 1 Tablet(s) Oral every day 020 2021 Inactive cetirizine 10 mg tablet RxNorm: 7410415 1 Tablet(s) PO daily 2019 Inactive This refill negates all other refills of this medication. Please do not auto refill Singulair 10 mg tablet RxNorm: 986833 1 Tablet(s) PO daily 2019 Inactive This refill negates all other refills of this medication gabapentin 300 mg capsule RxNorm: 126921 1 Capsule(s) PO TID 2019 Inactive lisinopril 2.5 mg tablet RxNorm: 865896 1 Tablet(s) PO daily 2019 Inactive levothyroxine 50 mcg tablet RxNorm: 950022 1 Tablet(s) PO daily 2019 Inactive This refill negates all other refills of this medication hydrochlorothiazide 25 mg tablet RxNorm: 851355 1 Tablet(s) Oral every day 2019 Inactive fenugreek seed extract 500 mg capsule RxNorm: 1 Capsule(s) Oral three times a day 020 2021 Inactive Alcohol Prep Pads RxNorm: 340900 1 Patch TOP QAM 2020 Inactive loperamide 2 mg tablet RxNorm: 119352 1 Tablet(s) Oral as needed take one tablet after each loose stool not to exceed 8 tablets a day 019 2018 Inactive Calcium 600-D3 Plus (mag-zinc) 600 [...] 2019 Inactive hydrochlorothiazide 25 mg tablet RxNorm: 448435 1 Tablet(s) Oral every day 2019 Inactive Sudafed 12 Hour 120 mg tablet,extended release RxNorm: 9743493 1 Tablet(s) Oral every 12 hours as needed 2018 Inactive omeprazole 20 mg capsule,delayed release RxNorm: 951941 1 Capsule(s) Oral every day 2019 Inactive Sudafed 12 Hour 120 mg tablet,extended release RxNorm: 1831905 1 Tablet(s) Oral every 12 hours as needed 2018 Inactive pantoprazole 40 mg tablet,delayed release RxNorm: 844900 1 Tablet(s) Oral every day 2018 Inactive discontinue any other H2Blkr. and PPI albuterol sulfate 2.5 mg/3 mL (0.083 %) solution for nebulization RxNorm: 187394 1 Vial Inhalation every four hours as needed as needed for dyspnea 2019 Inactive 60/box. This refill negates all other refills of this medication. Please do not fill early. Please do not auto refill. Symbicort 160 mcg-4.5 mcg/actuation HFA aerosol inhaler RxNorm: 5503470 2 Puff(s) INH BID No Stop Date Active Alcohol Prep Pads RxNorm: 528273 1 Patch TOP QAM 019 2019 Inactive Ventolin HFA 90 mcg/actuation aerosol inhaler RxNorm: 922138 2 Puff(s) INH QID 2019 Inactive Please do not fill early. Please do not auto refill. This refill negates all other refills of this medication True Metrix Glucose Test Strip RxNorm: 1 Test Strips Miscellaneous QAM 019 2019 Inactive 100/container atorvastatin 40 mg tablet RxNorm: 182179 1 Tablet(s) Oral every day 019 2019 Inactive buspirone 7.5 mg tablet RxNorm: 070983 1 Tablet(s) PO BID 019 2020 Inactive This refill negates all other refills of this medication hydrochlorothiazide 12.5 mg tablet RxNorm: 108729 1 Tablet(s) PO QAM 019 2019 Inactive levmetamfetamine 50 mg nasal inhaler RxNorm: 1 Unit(s) NASAL Q3-4H Do not use more than every 3 hours or 8 times/24hours 019 2021 Inactive Please do not auto refill. This refill negates all other refills of this medication Ventolin HFA 90 mcg/actuation aerosol inhaler RxNorm: 057510 2 Puff(s) INH QID 019 2018 Inactive Please do not fill early. Please do not auto refill. This refill negates all other refills of this medication Singulair 10 mg tablet RxNorm: 248939 1 Tablet(s) PO daily 019 2019 Inactive This refill negates all other refills of this medication cetirizine 10 mg tablet RxNorm: 0731582 1 Tablet(s) PO daily 019 2019 Inactive This refill negates all other refills of this medication. Please do not auto refill levothyroxine 50 mcg tablet RxNorm: 594582 1 Tablet(s) PO daily 019 2019 Inactive This refill negates all other refills of this medication diclofenac sodium 75 mg tablet,delayed release RxNorm: 241959 1 Tablet(s) PO BID 019 2019 Inactive This refill negates all other refills of this medication ranitidine 150 mg tablet RxNorm: 161825 1 Tablet(s) PO BID 019 2018 Inactive This refill negates all other refills of this medication Calcium 600-D3 Plus (mag-zinc) 600 mg calcium-800 unit-50 mg tablet RxNorm: 1 Tablet(s) PO daily take an additonal tablet for itching. 019 2018 Inactive This refill negates all other refills of this medication albuterol sulfate 2.5 mg/3 mL (0.083 %) solution for nebulization RxNorm: 269843 1 Vial INH QID 2018 Inactive 60/box. This refill negates all other refills of this medication. Please do not fill early. Please do not auto refill. lisinopril 2.5 mg tablet RxNorm: 260123 1 Tablet(s) PO daily 019 2019 Inactive gabapentin 300 mg capsule RxNorm: 864512 1 Capsule(s) PO TID 019 2019 Inactive atorvastatin 20 mg tablet RxNorm: 088314 1 Tablet(s) PO QHS 2018 Inactive This refill negates all other refills of this medication TRUEplus Lancets 30 gauge RxNorm: 1 Lancets Miscellaneous QAM 019 2018 Inactive 100/box gabapentin 300 mg capsule RxNorm: 196905 1 Capsule(s) PO TID 019 2018 Inactive Flintstones Complete (iron) 18 mg iron chewable tablet RxNorm: 1 Tablet(s) PO daily 019 2021 Inactive This refill negates all other refills of this medication gabapentin 300 mg capsule RxNorm: 424807 1 Capsule(s) PO TID as needed 019 2018 Inactive True Metrix Glucose Test Strip RxNorm: 1 Test Strips Miscellaneous QAM 019 2018 Inactive 100/container Alcohol Prep Pads RxNorm: 462831 1 Patch TOP QAM 019 2018 Inactive TRUEplus Lancets 30 gauge RxNorm: 1 Lancets Miscellaneous QAM 019 2018 Inactive 100/box lisinopril 2.5 mg tablet RxNorm: 588678 1 Tablet(s) PO daily 019 2018 Inactive ranitidine 150 mg tablet RxNorm: 197054 1 Tablet(s) PO BID 019 2018 Inactive This refill negates all other refills of this medication albuterol sulfate 2.5 mg/3 mL (0.083 %) solution for nebulization RxNorm: 659282 1 Vial INH QID 019 2018 Inactive [...] this medication gabapentin 300 mg capsule RxNorm: 272385 1 Capsule(s) PO TID as needed 019 2018 Inactive atorvastatin 20 mg tablet RxNorm: 995059 1 Tablet(s) PO QHS 019 2018 Inactive This refill negates all other refills of this medication trazodone 50 mg tablet RxNorm: 134272 1 Tablet(s) PO QHS 019 2018 Inactive This refill negates all other refills of this medication Ventolin HFA 90 mcg/actuation aerosol inhaler RxNorm: 414758 2 Puff(s) INH QID 019 2018 Inactive Please do not fill early. Please do not auto refill. This refill negates all other refills of this medication Calcium 600-D3 Plus 600 mg calcium-800 unit-50 mg tablet RxNorm: 1 Tablet(s) PO daily take an additonal tablet for itching. 019 2018 Inactive This refill negates all other refills of this medication Singulair 10 mg tablet RxNorm: 820112 1 Tablet(s) PO daily 019 2018 Inactive This refill negates all other refills of this medication buspirone 7.5 mg tablet RxNorm: 672126 1 Tablet(s) PO BID 019 2018 Inactive This refill negates all other refills of this medication diclofenac sodium 75 mg tablet,delayed release RxNorm: 167784 1 Tablet(s) PO BID 019 2018 Inactive This refill negates all other refills of this medication hydrochlorothiazide 12.5 mg tablet RxNorm: 004601 1 Tablet(s) PO QAM 019 2018 Inactive metoprolol succinate ER 50 mg tablet,extended release 24 hr RxNorm: 983877 1 Tablet(s) PO daily 019 2018 Inactive This refill negates all other refills of this medication levothyroxine 50 mcg tablet RxNorm: 854726 1 Tablet(s) PO daily 019 2018 Inactive This refill negates all other refills of this medication cetirizine 10 mg tablet RxNorm: 7927432 1 Tablet(s) PO daily 019 2018 Inactive This refill negates all other refills of this medication. Please do not auto refill Flintstones Complete (iron) 18 mg iron chewable tablet RxNorm: 1 Tablet(s) PO daily 019 2018 Inactive This refill negates all other refills of this medication buspirone 7.5 mg tablet RxNorm: 009775 1 Tablet(s) PO BID 019 2018 Inactive cetirizine 10 mg tablet RxNorm: 4479886 1 Tablet(s) PO daily 2018 Inactive Guaiasorb DM 10 mg-100 mg/5 mL oral liquid RxNorm: 302190 10 Milliliter(s) PO As needed every 4 hr 018 2018 Inactive Vicks Vaporub 4.7 %-1.2 %-2.6 % topical ointment RxNorm: 1487493 1 Application TOP TID 018 2018 Inactive levmetamfetamine 50 mg nasal inhaler RxNorm: 1 Unit(s) NASAL Q3-4H 2017 Inactive sertraline 50 mg tablet RxNorm: 358889 1 Tablet(s) PO daily 2018 Inactive Please note dose trazodone 50 mg tablet RxNorm: 936961 1 Tablet(s) PO QHS 018 2018 Inactive sertraline 50 mg tablet RxNorm: 427506 1 Tablet(s) PO daily 2017 Inactive amoxicillin 500 mg tablet RxNorm: 213745 1 Tablet(s) PO Q12H 2017 Inactive albuterol sulfate 2.5 mg/3 mL (0.083 %) solution for nebulization RxNorm: 449477 1 Vial INH QID 2018 Inactive 60/box. Please do not fill early. Please do not auto refill. Prozac 10 mg capsule RxNorm: 010083 1 Capsule(s) PO daily 2017 Inactive buspirone 7.5 mg tablet RxNorm: 592294 1 Tablet(s) PO BID 2018 Inactive gabapentin 300 mg capsule RxNorm: 125527 1 Capsule(s) PO TID as needed 2018 Inactive hydrochlorothiazide 12.5 mg tablet RxNorm: 129903 1 Tablet(s) PO QAM 2018 Inactive ranitidine 150 mg tablet RxNorm: 627644 1 Tablet(s) PO BID 2018 Inactive Macrobid 100 mg capsule RxNorm: 826505 1 Capsule(s) PO Q12H 018 2017 Inactive Singulair 10 mg tablet RxNorm: 997841 1 Tablet(s) PO daily 2018 Inactive Ventolin HFA 90 mcg/actuation aerosol inhaler RxNorm: 7696531 2 Puff(s) INH QID 018 2018 Inactive Singulair 10 mg tablet RxNorm: 534831 1 Tablet(s) PO daily 018 2017 Inactive buspirone 7.5 mg tablet RxNorm: 635489 1 Tablet(s) PO BID 018 2017 Inactive Prozac 10 mg capsule RxNorm: 535931 1 Capsule(s) PO daily 018 2017 Inactive diclofenac sodium 75 mg tablet,delayed release RxNorm: 973151 1 Tablet(s) PO BID 018 2017 Inactive lisinopril 2.5 mg tablet RxNorm: 934721 1 Tablet(s) PO daily 018 2017 Inactive Neilmed Pediatric Sinus Rinse Refill packet RxNorm: 1 Unit Dose NASAL PRN 018 2021 Inactive metoprolol succinate ER 50 mg tablet,extended release 24 hr RxNorm: 150005 1 Tablet(s) PO daily 018 2017 Inactive levothyroxine 50 mcg tablet RxNorm: 039325 1 Tablet(s) PO daily 018 2017 Inactive TRUEplus Lancets 30 gauge RxNorm: 1 Lancets Miscellaneous QAM 018 2017 Inactive 100/box Ventolin HFA 90 mcg/actuation aerosol inhaler RxNorm: 357468 2 Puff(s) INH QID 018 2017 Inactive Aleve 220 mg capsule RxNorm: 4414797 1 Capsule(s) PO BID 018 2018 Inactive ranitidine 150 mg tablet RxNorm: 145494 1 Tablet(s) PO BID 018 2017 Inactive gabapentin 300 mg capsule RxNorm: 209313 1 Capsule(s) PO TID as needed 018 2017 Inactive atorvastatin 20 mg tablet RxNorm: 776129 1 Tablet(s) PO QHS 018 2017 Inactive True Metrix Glucose Test Strip RxNorm: 1 Test Strips Miscellaneous QAM 018 2017 Inactive 50/container Calcium 600-D3 Plus 600 mg calcium-800 unit-50 mg tablet RxNorm: 1 Tablet(s) PO daily take an additonal tablet for itching. 018 2017 Inactive hydrochlorothiazide 12.5 mg tablet RxNorm: 284127 1 Tablet(s) PO QAM 018 2017 Inactive Flintstones Complete (iron) 18 mg iron chewable tablet RxNorm: 1 Tablet(s) PO daily 018 2017 Inactive True Metrix Glucose Meter RxNorm: miscellaneous 019 2018 Inactive sertraline 50 mg tablet RxNorm: 489878 1 Tablet(s) PO daily 020 2019 Inactive loperamide 2 mg tablet RxNorm: 043442 oral 019 2018 Inactive d-mannose oral powder RxNorm: PO 018 2021 Inactive Symbicort 160 mcg-4.5 mcg/actuation HFA aerosol inhaler RxNorm: 6938146 2 Puff(s) INH BID 2018 Inactive Medication [...] VACP 1 Fall Risk Assessment SNOMED CT: 22236033 4 CPT-4: DFRA01/13/2021[place] Fany AssessmentCPT-4: DSWA12/17/2020Urinalysis, dip stickCPT-4: 7309142Patient Health QuestionnaireCPT-4: DPHQ 08/19/2020ElectrocardiogramCPT-4: 3939554Tobacco Assessment/Screening CPT-4: TCA01/01/2020Fall Risk AssessmentSNOMED CT: 396804452 CPT-4: DFRA01/01/2020Functional AssessmentCPT-4: DFA01/01/2020[place] Fany AssessmentCPT-4: DSWA11/28/2019Patient Health QuestionnaireCPT-4: DPHQ11/28/2019 [place] Fany AssessmentCPT-4: DSWA10/17/2019HypertensionCPT-4: HTN10/17/[address]: 538010764 CPT-4: DFRA09/19/2019Functional AssessmentCPT-4: DFA111/20/2018Urinalysis, dip stickCPT-4: 124771106/21/2019Tobacco Assessment/ScreeningCPT-4: TCA05/24/2019 Patient Health QuestionnaireCPT-4: DPHQ05/24/2019AHA/REBECCA Classification AssessmentCPT-4: DAHA04/25/2019Controlled Substance ReportCPT-4: CTRSU04/25/2019 Urinalysis, dip stickCPT-4: 771602803/28/2019Urinalysis, dip stickCPT-4: 49939 03/28/20196048G1Y-ZefizazhbrhwabtTVT-0: 03887ZbjhjxhK0E-HmlbwrezbwjdoavNQG-2: 50816 PuzynxrO5I-HwvqareddythfbrHCT-8: 65478BckbmlhM4J-KuwvykpbvahtthwRGX-1: 27284 AmssflgT3K-HegogydddxayieeEJI-9: 78659GsetzajE7D-KrrvzmijuwxyhxiRBW-7: 99079 XocokkjF9H-YwsyatqbbsurxcjZFK-3: 53738KbgkstsN5P-WddajnidozsarpsBAZ-2: [address]: [id number] CPT-4: A94Nuoatei Reason For Visit No Reason For Visit data Plan of Care Planned Activity Notes Codes Status Date Patient Education: Patient Medication Summary Vuzavynts09/04/2022Appointment: Mikey Nair WPtel: [address] [facility] [id number]: Chivo Bishop WPtel: [phone] [place] [address] [id number]: Chivo Bishop WPtel: [address] [place] [address] [id number]: Chivo Bishop WPtel: [address] [place] [address] USETV111/11/2020ppointment: Chivo Bishop WPtel: [address] [place] [address] USETV110/13/2020ppointment: Chivo Bishop WPtel: [address] [place] [address] USETV1ppointment: Chivo Bishop WPtel: [address] [place] [address] [id number]/10/2021ppointment: Anna Culver WPtel: [address] [place] [address] USETV06/02/2021ppointment: Chivo Bishop WPtel: [address] [place] [address] USETV05/20/2021ppointment: Anna Culver WPtel: [phone] [place] [address] USETV04/28/2021ppointment: Chivo Bishop WPtel: [phone] [place] [address] USETV04/15/2021ppointment: Anna Culver WPtel: [address] [place] [address] [id number]: Anna Culver WPtel: [phone] [place] [address] USETV03/24/2021ppointment: Anna Culver WPtel: [phone] [place] [address] USETV03/13/2021ppointment: Anna Culver WPtel: [phone] [place] [address] [id number]: Chivo Bishop WPtel: [phone] [place] [address] [id number]: Anna Culver WPtel: [address] [place] [address] USETV01/13/2021ppointment: Anna Culver WPtel: [phone] [place] [address] [id number]: Chivo Bishop WPtel: [phone] [place] [address] USET11/28/2020ppointment: Anna Culver WPtel: [address] [place] [address] USETV11/24/2020ppointment: Anna Culver WPtel: [phone] [place] [address] [id number]: Anna Culver WPtel: [phone] [place] [address] [id number]: Anna Culver WPtel: [phone] [place] [address] USETV110/26/2019Appointment: Anna Culver WPtel: [address] [facility] [address] [place] [address] USETV11Appointment: Anna Culver WPtel: [phone] [place] [address] [address] [place] [address] USETV10Appointment: Anna Culver WPtel: [phone] [place] [address] USETV10Appointment: Gianna Birmingham MCtel: [address] [facility] [address] [id number]: Anna Culver WPtel: [phone] [place] [address] [id number]: Anna Culver WPtel: [phone] [place] [address] [id number]: Anna Culver WPtel: [id number] [place] [address] [id number]: Anna Culver WPtel: [phone] [place] [address] [place] [address] [id number]: Anna Culver WPtel: [phone] [place] [address] [place] [address] [id number]/Appointment: Anna Culver WPtel: [phone] [place] [address] [place] [address] [id number]/Appointment: Anna Culver WPtel: [phone] [place] [address] [place] [address] [id number]: Anna Culver WPtel: [phone] [place] [address] [place] [address] [id number]: Anna Culver WPtel: [address] [place] [address] [place], [place] [id number]: Anna Culver WPtel: [address] [place] [address] [id number]/20/2018Appointment: Maricarmen, Sudha WPtel: [address] [facility] [address] [id number]: Lori Hernadezera WPtel: [address] [facility] [address] [id number]: Charlene Oropeza WPtel: [address] [facility] [address] [id number]: Enedelia [id number]: Charlene Oropeza WPtel: [address] [facility] [address] [id number]: Haupricht, Rasta WPtel: [address] [facility] [address] [id number]: Haupricht, Rasta WPtel: [address] [facility] [address] [id number]: Haupricht, Rasta WPtel: [address] [facility] [address] [id number]: Javy, Rasta WPtel: [address] [facility] [address] [id number]: Pending Gynecology Referral InformationReferral ProcessedReferral: Pending Pulmonology Referral InformationReferralProcessed Referral: Pending Psychiatry Referral InformationReferralInitiatedReferral: Pending Respiratory Services Referral InformationReferralInitiatedReferral: Pending Ophthalmology Referral InformationReferralInitiatedReferral: [facility] WPtel: [address] [facility] [address] [id number] USWriter placed a call out to the patient to notify her that it has been recommended that she be seenby a urologist. Patient agreed to be seen, does not have a provider of choice and no transportationissues. [employer] faxed referral and clinical notes to [facility] in [place], [place] near the patient's home. Patient to [...] seen and prefers a provider in the [place] or [place] area. [employer] placed a call out to everyone listed in the area and the only location that was able to accept the patient's insurance was [address] [phone] and spoke with Maylin. Maylin asked that the patient's referral, face sheet and visit notes be faxed to . [employer] faxed over requested documents. Patient appointment confirmation letter generated and mailed to her home address. Patient to call to schedule an appointment.ProcessedReferral: [facility] WPtel: [address] [facility] [address] [id number] USPatient notified that it has been advised that she be seen by Neurology. Patient agreed to be seen and prefers to be seen by a provider in the [place], [place] area. Patient denies any concerns with transportation, and prefers to schedule her own appointment. [employer] [facility] and spoke with Neeraj [...]
--- OUTSIDE RECORDS SUMMARY | 2023-12-07 02:19 | XMS_ITS | CCD ---
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 Regional Marketing Director Name Role Phone Palomo KING, Anna Primary Care Provider Unav ailable Unavailable Chronic Care Management Unavaila ble Summary Purpose DataExchange Insurance Providers Payer name Policy type / Coverage type Covered republican ID Effective Begin Date Effective End Date [facility] [id number] Unknown Unknown Family history Mother Diagnosis Age [...] 05/31/2018 Education level Unknown Some High School 10th05/31/20185234VsytbmfhfwApmelwiNstvzanldh01/29/2018Tobacco historySNOMED CT: 681994704Ohu never smoked or chewed taolofr2705/31/2018Alcohol historySNOMED CT: 911928399Vdblb drinks mmjhwpj7605/31/2018Has the patient ever used illegal drugs? UnknownHas never used illegal drugs05/31/2018DNR Order/ Advanced Directive UnknownFull Code05/31/2018 Allergies, Adverse Reactions, Alerts Substance Reaction Codes Entered Date Inactivated Date Status OxyContin itch, RxNorm: 249290 01/13/2021 No Inactive Da te Active *No known food allergies Hkzqzjw0809/06/2018No Inactive DateActiveMethylprednisolonehivesRxNorm: 6902 09/06/2018No Inactive DateActive Problems [...] examinationICD-10: Z01.810 ICD-9: V72.8106/InactiveHeadacheICD-10: R51 ICD-9: 784.001/10/2018InactiveOther prison (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ICD-10: Z79.899 ICD-9: V58.6907/InactiveType 2 [...] Fill Instructions gabapentin 300 mg capsule RxNorm: 978081 Take 1 Capsule(s) Oral three times a day 022 2021 Inactive montelukast 10 mg tablet RxNorm: 838010 Take 1 Tablet(s) Oral every day 022 2021 Inactive cholecalciferol (vitamin D3) 50 mcg (2,000 unit) tablet RxNorm: 961860 Take 1 Tablet(s) Oral every day 022 2022 Inactive Myrbetriq 50 mg tablet,extended release RxNorm: 0834849 1 Tablet(s) Oral every day 022 No Stop Date Active Ozempic 0.25 mg or 0.5 mg (2 mg/1.5 mL) subcutaneous pen injector RxNorm: 5610774 inject 0.5 milligrams subcutaneously every week 022 2021 Inactive Ozempic 0.25 mg or 0.5 mg (2 mg/1.5 mL) subcutaneous pen injector RxNorm: 5342132 Take 0.5 Capsule(s) Injection once a week 022 2021 Inactive omeprazole 20 mg capsule,delayed release RxNorm: 487232 Take 1 Capsule(s) Oral every evening 2020 Inactive Ozempic 0.25 mg or 0.5 mg (2 mg/1.5 mL) subcutaneous pen injector RxNorm: 4034810 Take 0.25 Milligram(s) Subcutaneous once a week 2021 Inactive Easy Touch Alcohol Prep Pads RxNorm: 182128 USE DIRECTED EACH MORNING 2021 Inactive Probiotic 10 billion cell capsule RxNorm: 9623438 Take 1 Capsule(s) Oral every day 2021 Inactive levothyroxine 50 mcg tablet RxNorm: 045273 Take 1 Tablet(s) Oral every day 2020 Inactive Acid Social Work Instructor (famotidine) 20 mg tablet RxNorm: 251458 Take 1 Tablet(s) Oral every morning 2020 Inactive Heartburn Relief (famotidine) 10 mg tablet RxNorm: 854566 Take 1 Tablet(s) Oral QAM 2020 Inactive levothyroxine 50 mcg tablet RxNorm: 536476 Take 1 Tablet(s) Oral QD 2020 Inactive Singulair 10 mg tablet RxNorm: 699656 TAKE (1) TABLET BY MOUTH DAILY 2020 Inactive metformin 1,000 mg tablet RxNorm: 183576 1 Tablet(s) Oral two times a day 2021 Inactive lisinopril 2.5 mg tablet RxNorm: 585011 Take 1 Tablet(s) Oral every day 2020 Inactive hydrochlorothiazide 25 mg tablet RxNorm: 436837 Take 1 Tablet(s) Oral every day 021 2020 Inactive ondansetron 4 mg disintegrating tablet RxNorm: 908054 1 Tablet(s) Oral two times a day 2020 Inactive Sudafed 12 Hour 120 mg tablet,extended release RxNorm: 3804069 TAKE 1 TABLET BY MOUTH EVERY 12 HOURS NEEDED 021 2021 Inactive Heartburn Relief (famotidine) 10 mg tablet RxNorm: 232635 Take 1 Tablet(s) Oral every morning 021 2020 Inactive omeprazole 20 mg capsule,delayed release RxNorm: 182797 1 Capsule(s) Oral every evening 021 2020 Inactive sertraline 100 mg tablet RxNorm: 423343 2 Tablet(s) Oral every day 021 2020 Inactive levothyroxine 50 mcg tablet RxNorm: 946624 TAKE (1) TABLET BY MOUTH DAILY 021 2020 Inactive metformin 500 mg tablet RxNorm: 056254 1 Tablet(s) Oral two times a day take with 500mg to equal 1000mg 021 2020 Inactive gabapentin 300 mg capsule RxNorm: 165510 TAKE 1 CAPSULE BY MOUTH THREE TIMES A DAY 021 2020 Inactive lisinopril 2.5 mg tablet RxNorm: 207371 TAKE 1 TABLET BY MOUTH DAILY 021 2020 Inactive gabapentin 300 mg capsule RxNorm: 162455 TAKE 1 CAPSULE BY MOUTH THREE TIMES A DAY 021 2020 Inactive Singulair 10 mg tablet RxNorm: 569395 TAKE (1) TABLET BY MOUTH DAILY 021 2020 Inactive metformin 1,000 mg tablet RxNorm: 955439 1 Tablet(s) Oral two times a day 021 2020 Inactive atorvastatin 40 mg tablet RxNorm: 889559 1 Tablet(s) Oral every day 021 2020 Inactive omeprazole 20 mg capsule,delayed release RxNorm: 847132 1 Capsule(s) Oral every evening 021 2020 Inactive famotidine 10 mg tablet RxNorm: 363306 1 Tablet(s) Oral every morning 021 2020 Inactive Alcohol Prep Pads RxNorm: 596639 USE EACH MORNING 2020 Inactive omeprazole 20 mg capsule,delayed release RxNorm: 398130 1 Capsule(s) Oral two times a day 2021 Inactive omeprazole 20 mg capsule,delayed release RxNorm: 120940 TAKE 1 CAPSULE BY MOUTH EVERY DAY 2021 Inactive Macrobid 100 mg capsule RxNorm: 238228 1 Capsule(s) Oral every 12 hours with food 2020 Inactive omeprazole 20 mg capsule,delayed release RxNorm: 032658 1 Capsule(s) Oral two times a day 2021 Inactive metformin 1,000 mg tablet RxNorm: 139109 1 Tablet(s) Oral two times a day 2020 Inactive start on September 11, 2020 metformin 500 mg tablet RxNorm: 080603 1 Tablet(s) Oral two times a day take with 500mg to equal 1000mg 2019 Inactive gabapentin 300 mg capsule RxNorm: 448675 TAKE 1 CAPSULE BY MOUTH THREE TIMES DAILY 2020 Inactive cetirizine 10 mg tablet RxNorm: 2338312 TAKE (1) TABLET BY MOUTH DAILY 2020 Inactive metformin 500 mg tablet RxNorm: 366579 1 Tablet(s) Oral two times a day 2019 Inactive loperamide 2 mg tablet RxNorm: 253090 1 Tablet(s) Oral as needed take one tablet after each loose stool, maximum of 8 tablets in 24 hours 2021 Inactive Sudafed 12 Hour 120 mg tablet,extended release RxNorm: 6027844 TAKE 1 TABLET BY MOUTH EVERY 12 HOURS NEEDED 020 2019 Inactive hydrochlorothiazide 25 mg tablet RxNorm: 445454 TAKE (1) TABLET BY MOUTH EVERY DAY 2019 Inactive omeprazole 20 mg capsule,delayed release RxNorm: 418750 TAKE 1 CAPSULE BY MOUTH EVERY DAY 020 2020 Inactive metformin 500 mg tablet RxNorm: 460169 1 Tablet(s) Oral every day 2019 Inactive True Metrix Glucose Test Strip RxNorm: 1 Test Strips Miscellaneous two times a day as needed No Stop Date Active metformin 500 mg tablet RxNorm: 137937 1 Tablet(s) Oral every day 020 2019 Inactive diclofenac sodium 75 mg tablet,delayed release RxNorm: 355810 1 Tablet(s) PO BID 2021 Inactive This refill negates all other refills of this medication Sudafed 12 Hour 120 mg tablet,extended release RxNorm: 9131044 TAKE 1 TABLET BY MOUTH EVERY 12 HOURS NEEDED 020 2019 Inactive True Metrix Glucose Test Strip RxNorm: 1 Test Strips Miscellaneous every morning 020 2019 Inactive 100/container True Metrix Glucose Test Strip RxNorm: 1 Test Strips Miscellaneous QAM 020 2019 Inactive 100/container loperamide 2 mg tablet RxNorm: 007613 1 Tablet(s) Oral as needed take one tablet after each loose stool, maximum of 8 tablets in 24 hours 020 2019 Inactive cetirizine 10 mg tablet RxNorm: 5522864 1 Tablet(s) PO daily 2019 Inactive loperamide 2 mg tablet RxNorm: 788833 1 Tablet(s) Oral as needed take one tablet after each loose stool, maximum of 8 tablets in 24 hours 020 2019 Inactive quetiapine 100 mg tablet RxNorm: 867681 1 Tablet(s) Oral every night at bedtime 2019 Inactive levothyroxine 50 mcg tablet RxNorm: 850601 1 Tablet(s) PO daily 020 2020 Inactive gabapentin 300 mg capsule RxNorm: 246646 1 Capsule(s) PO TID 020 2019 Inactive levothyroxine 50 mcg tablet RxNorm: 903025 1 Tablet(s) PO daily 2019 Inactive lisinopril 2.5 mg tablet RxNorm: 038971 1 Tablet(s) PO daily 020 2020 Inactive gabapentin 300 mg capsule RxNorm: 766150 1 Capsule(s) PO TID 2019 Inactive cetirizine 10 mg tablet RxNorm: 0138785 1 Tablet(s) PO daily 2019 Inactive Singulair 10 mg tablet RxNorm: 324552 1 Tablet(s) PO daily 2020 Inactive gentamicin 0.3 % eye drops RxNorm: 225440 1 Drop(s) ophthalmic (eye) four times a day 2019 Inactive gentamicin 0.3 % eye drops RxNorm: 410041 1 Drop(s) ophthalmic (eye) four times a day 2019 Inactive gentamicin 0.3 % eye drops RxNorm: 625047 1 Drop(s) ophthalmic (eye) four times a day 2019 Inactive hydrochlorothiazide 25 mg tablet RxNorm: 854444 1 Tablet(s) Oral every day 2019 Inactive Sudafed 12 Hour 120 mg tablet,extended release RxNorm: 5730336 TAKE (1) TABLET BY MOUTH EVERY 12 HOURS NEEDED 2019 Inactive loperamide 2 mg tablet RxNorm: 889599 1 Tablet(s) Oral as needed take one tablet after each loose stool, maximum of 8 tablets in 24 hours 2019 Inactive loperamide 2 mg tablet RxNorm: 428219 1 Tablet(s) Oral as needed take one tablet after each loose stool, maximum of 8 tablets in 24 hours 2019 Inactive atorvastatin 40 mg tablet RxNorm: 976955 1 Tablet(s) Oral every day 2020 Inactive quetiapine 100 mg tablet RxNorm: 173169 1 Tablet(s) Oral every night at bedtime 020 2019 Inactive sertraline 100 mg tablet RxNorm: 967170 1 Tablet(s) Oral 020 2019 Inactive omeprazole 20 mg capsule,delayed release RxNorm: 913906 1 Capsule(s) Oral every day 020 2019 Inactive amoxicillin 250 mg capsule RxNorm: 499237 1 Capsule(s) Oral three times a day 2019 Inactive multivitamin with iron-mineral tablet RxNorm: 1 Tablet(s) Oral every day 2021 Inactive cetirizine 10 mg tablet RxNorm: 8488985 1 Tablet(s) PO daily 2019 Inactive This refill negates all other refills of this medication. Please do not auto refill Singulair 10 mg tablet RxNorm: 660010 1 Tablet(s) PO daily 2019 Inactive This refill negates all other refills of this medication gabapentin 300 mg capsule RxNorm: 055755 1 Capsule(s) PO TID 2019 Inactive lisinopril 2.5 mg tablet RxNorm: 037933 1 Tablet(s) PO daily 2019 Inactive levothyroxine 50 mcg tablet RxNorm: 515602 1 Tablet(s) PO daily 2019 Inactive This refill negates all other refills of this medication hydrochlorothiazide 25 mg tablet RxNorm: 248284 1 Tablet(s) Oral every day 2019 Inactive fenugreek seed extract 500 mg capsule RxNorm: 1 Capsule(s) Oral three times a day 2021 Inactive Alcohol Prep Pads RxNorm: 322204 1 Patch TOP QAM 2020 Inactive loperamide 2 mg tablet RxNorm: 667590 1 Tablet(s) Oral as needed take one [...] 2019 Inactive hydrochlorothiazide 25 mg tablet RxNorm: 811380 1 Tablet(s) Oral every day 2019 Inactive Sudafed 12 Hour 120 mg tablet,extended release RxNorm: 8784132 1 Tablet(s) Oral every 12 hours as needed 2018 Inactive omeprazole 20 mg capsule,delayed release RxNorm: 895020 1 Capsule(s) Oral every day 2019 Inactive Sudafed 12 Hour 120 mg tablet,extended release RxNorm: 3098021 1 Tablet(s) Oral every 12 hours as needed 2018 Inactive pantoprazole 40 mg tablet,delayed release RxNorm: 034432 1 Tablet(s) Oral every day 2018 Inactive discontinue any other H2Blkr. and PPI albuterol sulfate 2.5 mg/3 mL (0.083 %) solution for nebulization RxNorm: 048324 1 Vial Inhalation every four hours as needed as needed for dyspnea 2019 Inactive 60/box. This refill negates all other refills of this medication. Please do not fill early. Please do not auto refill. Symbicort 160 mcg-4.5 mcg/actuation HFA aerosol inhaler RxNorm: 2617846 2 Puff(s) INH BID No Stop Date Active Alcohol Prep Pads RxNorm: 939531 1 Patch TOP QAM 2019 Inactive Ventolin HFA 90 mcg/actuation aerosol inhaler RxNorm: 410530 2 Puff(s) INH QID 019 2019 Inactive Please do not fill early. Please do not auto refill. This refill negates all other refills of this medication True Metrix Glucose Test Strip RxNorm: 1 Test Strips Miscellaneous QAM 019 2019 Inactive 100/container atorvastatin 40 mg tablet RxNorm: 532126 1 Tablet(s) Oral every day 019 2019 Inactive buspirone 7.5 mg tablet RxNorm: 782996 1 Tablet(s) PO BID 019 2020 Inactive This refill negates all other refills of this medication hydrochlorothiazide 12.5 mg tablet RxNorm: 662228 1 Tablet(s) PO QAM 019 2019 Inactive levmetamfetamine 50 mg nasal inhaler RxNorm: 1 Unit(s) NASAL Q3-4H Do not use more than every 3 hours or 8 times/24hours 019 2021 Inactive Please do not auto refill. This refill negates all other refills of this medication Ventolin HFA 90 mcg/actuation aerosol inhaler RxNorm: 077773 2 Puff(s) INH QID 019 2018 Inactive Please do not fill early. Please do not auto refill. This refill negates all other refills of this medication Singulair 10 mg tablet RxNorm: 707600 1 Tablet(s) PO daily 019 2019 Inactive This refill negates all other refills of this medication cetirizine 10 mg tablet RxNorm: 6136223 1 Tablet(s) PO daily 019 2019 Inactive This refill negates all other refills of this medication. Please do not auto refill levothyroxine 50 mcg tablet RxNorm: 803873 1 Tablet(s) PO daily 019 2019 Inactive This refill negates all other refills of this medication diclofenac sodium 75 mg tablet,delayed release RxNorm: 011615 1 Tablet(s) PO BID 019 2019 Inactive This refill negates all other refills of this medication ranitidine 150 mg tablet RxNorm: 298504 1 Tablet(s) PO BID 2018 Inactive This refill negates all other refills of this medication Calcium 600-D3 Plus (mag-zinc) 600 mg calcium-800 unit-50 mg tablet RxNorm: 1 Tablet(s) PO daily take an additonal tablet for itching. 2018 Inactive This refill negates all other refills of this medication albuterol sulfate 2.5 mg/3 mL (0.083 %) solution for nebulization RxNorm: 303871 1 Vial INH QID 2018 Inactive 60/box. This refill negates all other refills of this medication. Please do not fill early. Please do not auto refill. lisinopril 2.5 mg tablet RxNorm: 442557 1 Tablet(s) PO daily 019 2019 Inactive gabapentin 300 mg capsule RxNorm: 155599 1 Capsule(s) PO TID 019 2019 Inactive atorvastatin 20 mg tablet RxNorm: 842406 1 Tablet(s) PO QHS 2018 Inactive This refill negates all other refills of this medication TRUEplus Lancets 30 gauge RxNorm: 1 Lancets Miscellaneous QAM 019 2018 Inactive 100/box gabapentin 300 mg capsule RxNorm: 558620 1 Capsule(s) PO TID 019 2018 Inactive [place] Complete (iron) 18 mg iron chewable tablet RxNorm: 1 Tablet(s) PO daily 019 2021 Inactive This refill negates all other refills of this medication gabapentin 300 mg capsule RxNorm: 078609 1 Capsule(s) PO TID as needed 019 2018 Inactive True Metrix Glucose Test Strip RxNorm: 1 Test Strips Miscellaneous QAM 019 2018 Inactive 100/container Alcohol Prep Pads RxNorm: 688947 1 Patch TOP QAM 019 2018 Inactive TRUEplus Lancets 30 gauge RxNorm: 1 Lancets Miscellaneous QAM 019 2018 Inactive 100/box lisinopril 2.5 mg tablet RxNorm: 545871 1 Tablet(s) PO daily 019 2018 Inactive ranitidine 150 mg tablet RxNorm: 374475 1 Tablet(s) PO BID 019 2018 Inactive This refill negates all other refills of this medication albuterol sulfate 2.5 mg/3 mL (0.083 %) solution for nebulization RxNorm: 368416 1 Vial INH QID 019 2018 Inactive [...] this medication gabapentin 300 mg capsule RxNorm: 374784 1 Capsule(s) PO TID as needed 019 2018 Inactive atorvastatin 20 mg tablet RxNorm: 532601 1 Tablet(s) PO QHS 019 2018 Inactive This refill negates all other refills of this medication trazodone 50 mg tablet RxNorm: 133977 1 Tablet(s) PO QHS 019 2018 Inactive This refill negates all other refills of this medication Ventolin HFA 90 mcg/actuation aerosol inhaler RxNorm: 693168 2 Puff(s) INH QID 019 2018 Inactive Please do not fill early. Please do not auto refill. This refill negates all other refills of this medication Calcium 600-D3 Plus 600 mg calcium-800 unit-50 mg tablet RxNorm: 1 Tablet(s) PO daily take an additonal tablet for itching. 019 2018 Inactive This refill negates all other refills of this medication Singulair 10 mg tablet RxNorm: 380272 1 Tablet(s) PO daily 019 2018 Inactive This refill negates all other refills of this medication buspirone 7.5 mg tablet RxNorm: 825705 1 Tablet(s) PO BID 019 2018 Inactive This refill negates all other refills of this medication diclofenac sodium 75 mg tablet,delayed release RxNorm: 235986 1 Tablet(s) PO BID 019 2018 Inactive This refill negates all other refills of this medication hydrochlorothiazide 12.5 mg tablet RxNorm: 946126 1 Tablet(s) PO QAM 019 2018 Inactive metoprolol succinate ER 50 mg tablet,extended release 24 hr RxNorm: 225454 1 Tablet(s) PO daily 2018 Inactive This refill negates all other refills of this medication levothyroxine 50 mcg tablet RxNorm: 256101 1 Tablet(s) PO daily 019 2018 Inactive This refill negates all other refills of this medication cetirizine 10 mg tablet RxNorm: 5709438 1 Tablet(s) PO daily 019 2018 Inactive This refill negates all other refills of this medication. Please do not auto refill Flintstones Complete (iron) 18 mg iron chewable tablet RxNorm: 1 Tablet(s) PO daily 019 2018 Inactive This refill negates all other refills of this medication buspirone 7.5 mg tablet RxNorm: 899213 1 Tablet(s) PO BID 019 2018 Inactive cetirizine 10 mg tablet RxNorm: 7741025 1 Tablet(s) PO daily 2018 Inactive Guaiasorb DM 10 mg-100 mg/5 mL oral liquid RxNorm: 511332 10 Milliliter(s) PO As needed every 4 hr 2018 Inactive Vicks Vaporub 4.7 %-1.2 %-2.6 % topical ointment RxNorm: 3040966 1 Application TOP TID 2018 Inactive levmetamfetamine 50 mg nasal inhaler RxNorm: 1 Unit(s) NASAL Q3-4H 2017 Inactive sertraline 50 mg tablet RxNorm: 952240 1 Tablet(s) PO daily 2018 Inactive Please note dose trazodone 50 mg tablet RxNorm: 839314 1 Tablet(s) PO QHS 2018 Inactive sertraline 50 mg tablet RxNorm: 573043 1 Tablet(s) PO daily 2017 Inactive amoxicillin 500 mg tablet RxNorm: 377639 1 Tablet(s) PO Q12H 2017 Inactive albuterol sulfate 2.5 mg/3 mL (0.083 %) solution for nebulization RxNorm: 264387 1 Vial INH QID 2018 Inactive 60/box. Please do not fill early. Please do not auto refill. Prozac 10 mg capsule RxNorm: 548775 1 Capsule(s) PO daily 2017 Inactive buspirone 7.5 mg tablet RxNorm: 505704 1 Tablet(s) PO BID 2018 Inactive gabapentin 300 mg capsule RxNorm: 128087 1 Capsule(s) PO TID as needed 2018 Inactive hydrochlorothiazide 12.5 mg tablet RxNorm: 367929 1 Tablet(s) PO QAM 2018 Inactive ranitidine 150 mg tablet RxNorm: 202514 1 Tablet(s) PO BID 2018 Inactive Macrobid 100 mg capsule RxNorm: 063736 1 Capsule(s) PO Q12H 2017 Inactive Singulair 10 mg tablet RxNorm: 696386 1 Tablet(s) PO daily /18/ 2019 Inactive Ventolin HFA 90 mcg/actuation aerosol inhaler RxNorm: 2785686 2 Puff(s) INH QID 018 2018 Inactive Singulair 10 mg tablet RxNorm: 128083 1 Tablet(s) PO daily 018 2017 Inactive buspirone 7.5 mg tablet RxNorm: 266302 1 Tablet(s) PO BID 018 2017 Inactive Prozac 10 mg capsule RxNorm: 951062 1 Capsule(s) PO daily 018 2017 Inactive diclofenac sodium 75 mg tablet,delayed release RxNorm: 075387 1 Tablet(s) PO BID 018 2017 Inactive lisinopril 2.5 mg tablet RxNorm: 470633 1 Tablet(s) PO daily 018 2017 Inactive Neilmed Pediatric Sinus Rinse Refill packet RxNorm: 1 Unit Dose NASAL PRN 018 2021 Inactive metoprolol succinate ER 50 mg tablet,extended release 24 hr RxNorm: 503001 1 Tablet(s) PO daily 018 2017 Inactive levothyroxine 50 mcg tablet RxNorm: 765351 1 Tablet(s) PO daily 018 2017 Inactive TRUEplus Lancets 30 gauge RxNorm: 1 Lancets Miscellaneous QAM 018 2017 Inactive 100/box Ventolin HFA 90 mcg/actuation aerosol inhaler RxNorm: 435941 2 Puff(s) INH QID 018 2017 Inactive Aleve 220 mg capsule RxNorm: 5015583 1 Capsule(s) PO BID 018 2018 Inactive ranitidine 150 mg tablet RxNorm: 996361 1 Tablet(s) PO BID 018 2017 Inactive gabapentin 300 mg capsule RxNorm: 540221 1 Capsule(s) PO TID as needed 018 2017 Inactive atorvastatin 20 mg tablet RxNorm: 449691 1 Tablet(s) PO QHS 018 2017 Inactive True Metrix Glucose Test Strip RxNorm: 1 Test Strips Miscellaneous QAM 018 2017 Inactive 50/container Calcium 600-D3 Plus 600 mg calcium-800 unit-50 mg tablet RxNorm: 1 Tablet(s) PO daily take an additonal tablet for itching. 018 2017 Inactive hydrochlorothiazide 12.5 mg tablet RxNorm: 277768 1 Tablet(s) PO QAM 018 2017 Inactive Flintstones Complete (iron) 18 mg iron chewable tablet RxNorm: 1 Tablet(s) PO daily 018 2017 Inactive True Metrix Glucose Meter RxNorm: miscellaneous 019 2018 Inactive sertraline 50 mg tablet RxNorm: 996864 1 Tablet(s) PO daily 020 2019 Inactive loperamide 2 mg tablet RxNorm: 580725 oral 019 2018 Inactive d-mannose oral powder RxNorm: PO 018 2021 Inactive Symbicort 160 mcg-4.5 mcg/actuation HFA aerosol inhaler RxNorm: 2645849 2 Puff(s) INH BID 019 2018 Inactive [...] CPT-4: VACP Fall Risk Assessment SNOMED CT: 54519424 4 CPT-4: DFRA01/13/2021emmes Fany AssessmentCPT-4: DSWA12/17/2020Urinalysis, dip stickCPT-4: 2661912Patient Health QuestionnaireCPT-4: DPHQ 08/19/2020ElectrocardiogramCPT-4: 0521737Tobacco Assessment/Screening CPT-4: TCA01/01/2020Fall Risk AssessmentSNOMED CT: 912664428 CPT-4: DFRA01/01/2020Functional AssessmentCPT-4: DFA01/01/2020Semmes Fany AssessmentCPT-4: DSWA11/28/2019Patient Health QuestionnaireCPT-4: DPHQ11/28/2019 Aubrey Fany AssessmentCPT-4: DSWA10/17/2019HypertensionCPT-4: HTN10/17/[address]: 043179708 CPT-4: DFRA09/19/2019Functional AssessmentCPT-4: DFA111/20/2018Urinalysis, dip stickCPT-4: 0549279Tobacco Assessment/ScreeningCPT-4: TCA05/24/2019 Patient Health QuestionnaireCPT-4: DPHQ05/24/2019AHA/REBECCA Classification AssessmentCPT-4: DAHA04/25/2019Controlled Substance ReportCPT-4: CTRSU04/25/2019 Urinalysis, dip stickCPT-4: 218683903/28/2019Urinalysis, dip stickCPT-4: 43783 03/28/20196361C6X-KofrhxnhjpgmmbbUCZ-8: 56081RtgmukxY9O-YyyoasrjicaebtqFLA-0: 39931 UzjrajwS8Y-AmqximvqhbrsgwgPLQ-6: 16604VihjaskL4Z-EbvrzscmdetctdtPTX-2: 57256 GzbrqmbV1O-JfzzbobytyeqfvsTQG-8: 42254DdgfppnB8M-LxprdurmbzjrtfyUKY-2: 65642 YfvwagoI0T-StapvrqqctvtlciBXK-2: 81861XfrdemhE2N-FtzstoautvriyakZQM-4: [address]: 494171052 CPT-4: X60Tsxgzna Reason For Visit No Reason For Visit data Plan of Care Planned Activity Notes Codes Status Date Referral: Pending Gynecology Referral Informatio n Referral ProcessedReferral: Pending Pulmonology Referral InformationReferralProcessed Referral: Pending Psychiatry Referral InformationReferralInitiatedReferral: Pending Respiratory Services Referral InformationReferralInitiatedReferral: Pending Ophthalmology Referral InformationReferralInitiatedReferral: [facility] WPtel: [address] [facility] USWriter placed a call out to the patient to notify her that it has been recommended that she be seenby a urologist. Patient agreed to be seen, does not have a provider of choice and no transportationissues. Packing And Shipping Clerk faxed referral and clinical notes to [facility] in [place], [place] near the patient's home. Patient to [...] seen and prefers a provider in the [place] or [place] area. Packing And Shipping Clerk placed a call out to everyone listed in the area and the only location that was able to accept the patient's insurance was [address] [address] and spoke with Maylin. Maylin asked that the patient's referral, face sheet and visit notes be faxed to . Packing And Shipping Clerk faxed over requested documents. Patient appointment confirmation letter generated and mailed to her home address. Patient to call to schedule an appointment.ProcessedReferral: [facility] WPtel: [address] [id number] USPatient notified that it has been advised that she be seen by Neurology. Patient agreed to be seen and prefers to be seen by a provider in the [place], [place] area. Patient denies any concerns with transportation, and prefers to schedule her own appointment. Packing And Shipping Clerk placed a call out to [facility] [...]
--- OUTSIDE RECORDS SUMMARY | 2023-12-07 02:20 | XMS_ITS | CCD ---
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 Fractionation Supervisor Name Role Phone Palomo KING, Anna Primary Care Provider Unav ailable Unavailable Chronic Care Management Unavaila ble Summary Purpose DataExchange Insurance Providers Payer name Policy type / Coverage type Covered democrat ID Effective Begin Date Effective End Date [facility] [id number] Unknown Unknown Family history Mother Diagnosis Age [...] 05/31/2018 Education level Unknown Some High School 10th05/31/20181653VbmpygakksSzmnspaHdtqzdcyzd68/29/2018Tobacco historySNOMED CT: 133952386Gql never smoked or chewed pfrkrae6305/31/2018Alcohol historySNOMED CT: 754987019Tltot drinks qktnsey5905/31/2018Has the patient ever used illegal drugs? UnknownHas never used illegal drugs05/31/2018DNR Order/ Advanced Directive UnknownFull Code05/31/2018 Allergies, Adverse Reactions, Alerts Substance Reaction Codes Entered Date Inactivated Date Status OxyContin itch, RxNorm: 992933 01/13/2021 No Inactive Da te Active *No known food allergies Mrlxxgu9109/06/2018No Inactive DateActiveMethylprednisolonehivesRxNorm: 6902 09/06/2018No Inactive DateActive Problems [...] (4 mg/3 mL) subcutaneous pen injector RxNorm: 2811842 Take 1 Unit Dose Subcutaneous QWeek 022 2021 Inactive famotidine 20 mg tablet RxNorm: 741277 Take 1 Tablet(s) Oral every morning 022 2021 Inactive levothyroxine 50 mcg tablet RxNorm: 178864 Take 1 Tablet(s) Oral every day 022 2021 Inactive atorvastatin 20 mg tablet RxNorm: 487571 Take 1 Tablet(s) Oral every night at bedtime 022 2021 Inactive Cleocin T 1 % lotion RxNorm: 185858 Take 2 Gram(s) Topical every day 022 2021 Inactive Cleocin T 1 % lotion RxNorm: 200135 Take 2 Gram(s) Topical every day 022 2021 Inactive Ozempic 1 mg/dose (4 mg/3 mL) subcutaneous pen injector RxNorm: 7759631 Take 1 Unit Dose Subcutaneous QWeek 022 2021 Inactive Ozempic 0.25 mg or 0.5 mg (2 mg/1.5 mL) subcutaneous pen injector RxNorm: 1956792 INJECT 0.5 MGS SUBCUTANEOUSLY EVERY WEEK 022 2021 Inactive omeprazole 20 mg capsule,delayed release RxNorm: 180049 Take 1 Capsule(s) Oral every evening 022 2021 Inactive levothyroxine 50 mcg tablet RxNorm: 961175 Take 1 Tablet(s) Oral every day 022 2021 Inactive atorvastatin 20 mg tablet RxNorm: 143016 Take 1 Tablet(s) Oral every night at bedtime 2021 Inactive This refill negates all other refills of this medication lisinopril 2.5 mg tablet RxNorm: 518730 Take 1 Tablet(s) Oral every day 022 2021 Inactive gabapentin 300 mg capsule RxNorm: 894990 Take 1 Capsule(s) Oral three times a day 022 2021 Inactive montelukast 10 mg tablet RxNorm: 002800 Take 1 Tablet(s) Oral every day 022 2021 Inactive cholecalciferol (vitamin D3) 50 mcg (2,000 unit) tablet RxNorm: 600203 Take 1 Tablet(s) Oral every day 022 2022 Inactive Myrbetriq 50 mg tablet,extended release RxNorm: 8123070 1 Tablet(s) Oral every day No Stop Date Active Ozempic 0.25 mg or 0.5 mg (2 mg/1.5 mL) subcutaneous pen injector RxNorm: 3632297 inject 0.5 milligrams subcutaneously every week 2021 Inactive Ozempic 0.25 mg or 0.5 mg (2 mg/1.5 mL) subcutaneous pen injector RxNorm: 3779152 Take 0.5 Capsule(s) Injection once a week 2021 Inactive omeprazole 20 mg capsule,delayed release RxNorm: 685785 Take 1 Capsule(s) Oral every evening 2020 Inactive Ozempic 0.25 mg or 0.5 mg (2 mg/1.5 mL) subcutaneous pen injector RxNorm: 4057907 Take 0.25 Milligram(s) Subcutaneous once a week 2021 Inactive Easy Touch Alcohol Prep Pads RxNorm: 868308 USE DIRECTED EACH MORNING 2021 Inactive Probiotic 10 billion cell capsule RxNorm: 7042541 Take 1 Capsule(s) Oral every day 2021 Inactive levothyroxine 50 mcg tablet RxNorm: 337651 Take 1 Tablet(s) Oral every day 2020 Inactive Acid Fire Technician (famotidine) 20 mg tablet RxNorm: 464716 Take 1 Tablet(s) Oral every morning 2020 Inactive Heartburn Relief (famotidine) 10 mg tablet RxNorm: 900989 Take 1 Tablet(s) Oral QAM 2020 Inactive levothyroxine 50 mcg tablet RxNorm: 402478 Take 1 Tablet(s) Oral QD 2020 Inactive Singulair 10 mg tablet RxNorm: 009376 TAKE (1) TABLET BY MOUTH DAILY 2020 Inactive metformin 1,000 mg tablet RxNorm: 382352 1 Tablet(s) Oral two times a day 2021 Inactive lisinopril 2.5 mg tablet RxNorm: 856075 Take 1 Tablet(s) Oral every day 2020 Inactive hydrochlorothiazide 25 mg tablet RxNorm: 699951 Take 1 Tablet(s) Oral every day 021 2020 Inactive ondansetron 4 mg disintegrating tablet RxNorm: 127868 1 Tablet(s) Oral two times a day 021 2020 Inactive Sudafed 12 Hour 120 mg tablet,extended release RxNorm: 4307353 TAKE 1 TABLET BY MOUTH EVERY 12 HOURS NEEDED 2021 Inactive Heartburn Relief (famotidine) 10 mg tablet RxNorm: 499793 Take 1 Tablet(s) Oral every morning 021 2020 Inactive omeprazole 20 mg capsule,delayed release RxNorm: 287933 1 Capsule(s) Oral every evening 021 2020 Inactive sertraline 100 mg tablet RxNorm: 017067 2 Tablet(s) Oral every day 021 2020 Inactive levothyroxine 50 mcg tablet RxNorm: 820423 TAKE (1) TABLET BY MOUTH DAILY 021 2020 Inactive metformin 500 mg tablet RxNorm: 829974 1 Tablet(s) Oral two times a day take with 500mg to equal 1000mg 021 2020 Inactive gabapentin 300 mg capsule RxNorm: 526442 TAKE 1 CAPSULE BY MOUTH THREE TIMES A DAY 021 2020 Inactive lisinopril 2.5 mg tablet RxNorm: 965423 TAKE 1 TABLET BY MOUTH DAILY 021 2020 Inactive gabapentin 300 mg capsule RxNorm: 659805 TAKE 1 CAPSULE BY MOUTH THREE TIMES A DAY 021 2020 Inactive Singulair 10 mg tablet RxNorm: 733927 TAKE (1) TABLET BY MOUTH DAILY 021 2020 Inactive metformin 1,000 mg tablet RxNorm: 188237 1 Tablet(s) Oral two times a day 021 2020 Inactive atorvastatin 40 mg tablet RxNorm: 016264 1 Tablet(s) Oral every day 021 2020 Inactive omeprazole 20 mg capsule,delayed release RxNorm: 662890 1 Capsule(s) Oral every evening 2020 Inactive famotidine 10 mg tablet RxNorm: 300483 1 Tablet(s) Oral every morning 021 2020 Inactive Alcohol Prep Pads RxNorm: 288090 USE EACH MORNING 2020 Inactive omeprazole 20 mg capsule,delayed release RxNorm: 237784 1 Capsule(s) Oral two times a day 2021 Inactive omeprazole 20 mg capsule,delayed release RxNorm: 409930 TAKE 1 CAPSULE BY MOUTH EVERY DAY 2021 Inactive Macrobid 100 mg capsule RxNorm: 365342 1 Capsule(s) Oral every 12 hours with food 2020 Inactive omeprazole 20 mg capsule,delayed release RxNorm: 885177 1 Capsule(s) Oral two times a day 2021 Inactive metformin 1,000 mg tablet RxNorm: 696953 1 Tablet(s) Oral two times a day 2020 Inactive start on September 11, 2020 metformin 500 mg tablet RxNorm: 592723 1 Tablet(s) Oral two times a day take with 500mg to equal 1000mg 2019 Inactive gabapentin 300 mg capsule RxNorm: 062082 TAKE 1 CAPSULE BY MOUTH THREE TIMES DAILY 2020 Inactive cetirizine 10 mg tablet RxNorm: 3131936 TAKE (1) TABLET BY MOUTH DAILY 2020 Inactive metformin 500 mg tablet RxNorm: 825613 1 Tablet(s) Oral two times a day 2019 Inactive loperamide 2 mg tablet RxNorm: 793072 1 Tablet(s) Oral as needed take one tablet after each loose stool, maximum of 8 tablets in 24 hours 2021 Inactive Sudafed 12 Hour 120 mg tablet,extended release RxNorm: 2348601 TAKE 1 TABLET BY MOUTH EVERY 12 HOURS NEEDED 2019 Inactive hydrochlorothiazide 25 mg tablet RxNorm: 076635 TAKE (1) TABLET BY MOUTH EVERY DAY 020 2019 Inactive omeprazole 20 mg capsule,delayed release RxNorm: 681410 TAKE 1 CAPSULE BY MOUTH EVERY DAY 020 2020 Inactive metformin 500 mg tablet RxNorm: 253353 1 Tablet(s) Oral every day 2019 Inactive True Metrix Glucose Test Strip RxNorm: 1 Test Strips Miscellaneous two times a day as needed No Stop Date Active metformin 500 mg tablet RxNorm: 990768 1 Tablet(s) Oral every day 2019 Inactive diclofenac sodium 75 mg tablet,delayed release RxNorm: 715086 1 Tablet(s) PO BID 2021 Inactive This refill negates all other refills of this medication Sudafed 12 Hour 120 mg tablet,extended release RxNorm: 5650477 TAKE 1 TABLET BY MOUTH EVERY 12 HOURS NEEDED 020 2019 Inactive True Metrix Glucose Test Strip RxNorm: 1 Test Strips Miscellaneous every morning 020 2019 Inactive 100/container True Metrix Glucose Test Strip RxNorm: 1 Test Strips Miscellaneous QAM 020 2019 Inactive 100/container loperamide 2 mg tablet RxNorm: 635311 1 Tablet(s) Oral as needed take one tablet after each loose stool, maximum of 8 tablets in 24 hours 020 2019 Inactive cetirizine 10 mg tablet RxNorm: 0258939 1 Tablet(s) PO daily 020 2019 Inactive loperamide 2 mg tablet RxNorm: 361170 1 Tablet(s) Oral as needed take one tablet after each loose stool, maximum of 8 tablets in 24 hours 020 2019 Inactive quetiapine 100 mg tablet RxNorm: 855731 1 Tablet(s) Oral every night at bedtime 020 2019 Inactive levothyroxine 50 mcg tablet RxNorm: 116870 1 Tablet(s) PO daily 020 2020 Inactive gabapentin 300 mg capsule RxNorm: 142864 1 Capsule(s) PO TID 2019 Inactive levothyroxine 50 mcg tablet RxNorm: 557291 1 Tablet(s) PO daily 020 2019 Inactive lisinopril 2.5 mg tablet RxNorm: 593303 1 Tablet(s) PO daily 2020 Inactive gabapentin 300 mg capsule RxNorm: 105444 1 Capsule(s) PO TID 2019 Inactive cetirizine 10 mg tablet RxNorm: 1784687 1 Tablet(s) PO daily 2019 Inactive Singulair 10 mg tablet RxNorm: 181279 1 Tablet(s) PO daily 2020 Inactive gentamicin 0.3 % eye drops RxNorm: 749840 1 Drop(s) ophthalmic (eye) four times a day 2019 Inactive gentamicin 0.3 % eye drops RxNorm: 404224 1 Drop(s) ophthalmic (eye) four times a day 2019 Inactive gentamicin 0.3 % eye drops RxNorm: 984035 1 Drop(s) ophthalmic (eye) four times a day 2019 Inactive hydrochlorothiazide 25 mg tablet RxNorm: 183565 1 Tablet(s) Oral every day 2019 Inactive Sudafed 12 Hour 120 mg tablet,extended release RxNorm: 5960170 TAKE (1) TABLET BY MOUTH EVERY 12 HOURS NEEDED 2019 Inactive loperamide 2 mg tablet RxNorm: 586344 1 Tablet(s) Oral as needed take one tablet after each loose stool, maximum of 8 tablets in 24 hours 020 2019 Inactive loperamide 2 mg tablet RxNorm: 730253 1 Tablet(s) Oral as needed take one tablet after each loose stool, maximum of 8 tablets in 24 hours 032019 Inactive atorvastatin 40 mg tablet RxNorm: 052742 1 Tablet(s) Oral every day 020 2020 Inactive quetiapine 100 mg tablet RxNorm: 481815 1 Tablet(s) Oral every night at bedtime 2019 Inactive sertraline 100 mg tablet RxNorm: 313379 1 Tablet(s) Oral 2019 Inactive omeprazole 20 mg capsule,delayed release RxNorm: 153374 1 Capsule(s) Oral every day 020 2019 Inactive amoxicillin 250 mg capsule RxNorm: 218715 1 Capsule(s) Oral three times a day 2019 Inactive multivitamin with iron-mineral tablet RxNorm: 1 Tablet(s) Oral every day 020 2021 Inactive cetirizine 10 mg tablet RxNorm: 7475664 1 Tablet(s) PO daily 2019 Inactive This refill negates all other refills of this medication. Please do not auto refill Singulair 10 mg tablet RxNorm: 487651 1 Tablet(s) PO daily 2019 Inactive This refill negates all other refills of this medication gabapentin 300 mg capsule RxNorm: 036245 1 Capsule(s) PO TID 2019 Inactive lisinopril 2.5 mg tablet RxNorm: 768856 1 Tablet(s) PO daily 2019 Inactive levothyroxine 50 mcg tablet RxNorm: 730231 1 Tablet(s) PO daily 2019 Inactive This refill negates all other refills of this medication hydrochlorothiazide 25 mg tablet RxNorm: 674081 1 Tablet(s) Oral every day 2019 Inactive fenugreek seed extract 500 mg capsule RxNorm: 1 Capsule(s) Oral three times a day 020 2021 Inactive Alcohol Prep Pads RxNorm: 744578 1 Patch TOP QAM 1 Inactive loperamide 2 mg tablet RxNorm: 858595 1 Tablet(s) Oral as needed take one [...] 2019 Inactive hydrochlorothiazide 25 mg tablet RxNorm: 175016 1 Tablet(s) Oral every day 2019 Inactive Sudafed 12 Hour 120 mg tablet,extended release RxNorm: 1536943 1 Tablet(s) Oral every 12 hours as needed 2018 Inactive omeprazole 20 mg capsule,delayed release RxNorm: 272174 1 Capsule(s) Oral every day 2019 Inactive Sudafed 12 Hour 120 mg tablet,extended release RxNorm: 9789383 1 Tablet(s) Oral every 12 hours as needed 2018 Inactive pantoprazole 40 mg tablet,delayed release RxNorm: 600511 1 Tablet(s) Oral every day 2018 Inactive discontinue any other H2Blkr. and PPI albuterol sulfate 2.5 mg/3 mL (0.083 %) solution for nebulization RxNorm: 120202 1 Vial Inhalation every four hours as needed as needed for dyspnea 2019 Inactive 60/box. This refill negates all other refills of this medication. Please do not fill early. Please do not auto refill. Symbicort 160 mcg-4.5 mcg/actuation HFA aerosol inhaler RxNorm: 3125906 2 Puff(s) INH BID 11/15/2 019 No Stop Date Active Alcohol Prep Pads RxNorm: 399095 1 Patch TOP QAM 019 2019 Inactive Ventolin HFA 90 mcg/actuation aerosol inhaler RxNorm: 872695 2 Puff(s) INH QID 019 2019 Inactive Please do not fill early. Please do not auto refill. This refill negates all other refills of this medication True Metrix Glucose Test Strip RxNorm: 1 Test Strips Miscellaneous QAM 019 2019 Inactive 100/container atorvastatin 40 mg tablet RxNorm: 308279 1 Tablet(s) Oral every day 019 2019 Inactive buspirone 7.5 mg tablet RxNorm: 318104 1 Tablet(s) PO BID 019 2020 Inactive This refill negates all other refills of this medication hydrochlorothiazide 12.5 mg tablet RxNorm: 730942 1 Tablet(s) PO QAM 019 2019 Inactive levmetamfetamine 50 mg nasal inhaler RxNorm: 1 Unit(s) NASAL Q3-4H Do not use more than every 3 hours or 8 times/24hours 2021 Inactive Please do not auto refill. This refill negates all other refills of this medication Ventolin HFA 90 mcg/actuation aerosol inhaler RxNorm: 727901 2 Puff(s) INH QID 019 2018 Inactive Please do not fill early. Please do not auto refill. This refill negates all other refills of this medication Singulair 10 mg tablet RxNorm: 487694 1 Tablet(s) PO daily 019 2019 Inactive This refill negates all other refills of this medication cetirizine 10 mg tablet RxNorm: 2992019 1 Tablet(s) PO daily 019 2019 Inactive This refill negates all other refills of this medication. Please do not auto refill levothyroxine 50 mcg tablet RxNorm: 794178 1 Tablet(s) PO daily 2019 Inactive This refill negates all other refills of this medication diclofenac sodium 75 mg tablet,delayed release RxNorm: 069321 1 Tablet(s) PO BID 019 2019 Inactive This refill negates all other refills of this medication ranitidine 150 mg tablet RxNorm: 768335 1 Tablet(s) PO BID 019 2018 Inactive This refill negates all other refills of this medication Calcium 600-D3 Plus (mag-zinc) 600 mg calcium-800 unit-50 mg tablet RxNorm: 1 Tablet(s) PO daily take an additonal tablet for itching. 019 2018 Inactive This refill negates all other refills of this medication albuterol sulfate 2.5 mg/3 mL (0.083 %) solution for nebulization RxNorm: 060559 1 Vial INH QID 2018 Inactive 60/box. This refill negates all other refills of this medication. Please do not fill early. Please do not auto refill. lisinopril 2.5 mg tablet RxNorm: 745421 1 Tablet(s) PO daily 019 2019 Inactive gabapentin 300 mg capsule RxNorm: 508073 1 Capsule(s) PO TID 019 2019 Inactive atorvastatin 20 mg tablet RxNorm: 017283 1 Tablet(s) PO QHS 019 2018 Inactive This refill negates all other refills of this medication TRUEplus Lancets 30 gauge RxNorm: 1 Lancets Miscellaneous QAM 019 2018 Inactive 100/box gabapentin 300 mg capsule RxNorm: 728060 1 Capsule(s) PO TID 019 2018 Inactive Flintstones Complete (iron) 18 mg iron chewable tablet RxNorm: 1 Tablet(s) PO daily 019 2021 Inactive This refill negates all other refills of this medication gabapentin 300 mg capsule RxNorm: 798232 1 Capsule(s) PO TID as needed 019 2018 Inactive True Metrix Glucose Test Strip RxNorm: 1 Test Strips Miscellaneous QA 019 2018 Inactive 100/container Alcohol Prep Pads RxNorm: 027727 1 Patch [facility] 019 2018 Inactive TRUEplus Lancets 30 gauge RxNorm: 1 Lancets Miscellaneous [facility] 019 2018 Inactive 100/box lisinopril 2.5 mg tablet RxNorm: 353052 1 Tablet(s) PO daily 019 2018 Inactive ranitidine 150 mg tablet RxNorm: 239898 1 Tablet(s) PO BID 019 2018 Inactive This refill negates all other refills of this medication albuterol sulfate 2.5 mg/3 mL (0.083 %) solution for nebulization RxNorm: 298984 1 Vial INH QID 019 2018 Inactive [...] this medication gabapentin 300 mg capsule RxNorm: 651859 1 Capsule(s) PO TID as needed 019 2018 Inactive atorvastatin 20 mg tablet RxNorm: 336561 1 Tablet(s) PO QHS 019 2018 Inactive This refill negates all other refills of this medication trazodone 50 mg tablet RxNorm: 774396 1 Tablet(s) PO QHS 019 2018 Inactive This refill negates all other refills of this medication Ventolin HFA 90 mcg/actuation aerosol inhaler RxNorm: 346630 2 Puff(s) INH QID 019 2018 Inactive Please do not fill early. Please do not auto refill. This refill negates all other refills of this medication Calcium 600-D3 Plus 600 mg calcium-800 unit-50 mg tablet RxNorm: 1 Tablet(s) PO daily take an additonal tablet for itching. 019 2018 Inactive This refill negates all other refills of this medication Singulair 10 mg tablet RxNorm: 239126 1 Tablet(s) PO daily 019 2018 Inactive This refill negates all other refills of this medication buspirone 7.5 mg tablet RxNorm: 933625 1 Tablet(s) PO BID 019 2018 Inactive This refill negates all other refills of this medication diclofenac sodium 75 mg tablet,delayed release RxNorm: 548376 1 Tablet(s) PO BID 019 2018 Inactive This refill negates all other refills of this medication hydrochlorothiazide 12.5 mg tablet RxNorm: 350644 1 Tablet(s) PO QAM 019 2018 Inactive metoprolol succinate ER 50 mg tablet,extended release 24 hr RxNorm: 499331 1 Tablet(s) PO daily 019 2018 Inactive This refill negates all other refills of this medication levothyroxine 50 mcg tablet RxNorm: 798729 1 Tablet(s) PO daily 019 2018 Inactive This refill negates all other refills of this medication cetirizine 10 mg tablet RxNorm: 6218958 1 Tablet(s) PO daily 019 2018 Inactive This refill negates all other refills of this medication. Please do not auto refill Flintstones Complete (iron) 18 mg iron chewable tablet RxNorm: 1 Tablet(s) PO daily 019 2018 Inactive This refill negates all other refills of this medication buspirone 7.5 mg tablet RxNorm: 463277 1 Tablet(s) PO BID 019 2018 Inactive cetirizine 10 mg tablet RxNorm: 8017667 1 Tablet(s) PO daily 2018 Inactive Guaiasorb DM 10 mg-100 mg/5 mL oral liquid RxNorm: 449205 10 Milliliter(s) PO As needed every 4 hr 2018 Inactive Vicks Vaporub 4.7 %-1.2 %-2.6 % topical ointment RxNorm: 5749417 1 Application TOP TID 2018 Inactive levmetamfetamine 50 mg nasal inhaler RxNorm: 1 Unit(s) NASAL Q3-4H 2017 Inactive sertraline 50 mg tablet RxNorm: 090517 1 Tablet(s) PO daily 2018 Inactive Please note dose trazodone 50 mg tablet RxNorm: 532638 1 Tablet(s) PO QHS 2018 Inactive sertraline 50 mg tablet RxNorm: 222735 1 Tablet(s) PO daily 2017 Inactive amoxicillin 500 mg tablet RxNorm: 874635 1 Tablet(s) PO Q12H 2017 Inactive albuterol sulfate 2.5 mg/3 mL (0.083 %) solution for nebulization RxNorm: 465815 1 Vial INH QID 2018 Inactive 60/box. Please do not fill early. Please do not auto refill. Prozac 10 mg capsule RxNorm: 540971 1 Capsule(s) PO daily 2017 Inactive buspirone 7.5 mg tablet RxNorm: 139389 1 Tablet(s) PO BID 2018 Inactive gabapentin 300 mg capsule RxNorm: 495721 1 Capsule(s) PO TID as needed 2018 Inactive hydrochlorothiazide 12.5 mg tablet RxNorm: 833856 1 Tablet(s) PO QAM 2018 Inactive ranitidine 150 mg tablet RxNorm: 239416 1 Tablet(s) PO BID 2018 Inactive Macrobid 100 mg capsule RxNorm: 509373 1 Capsule(s) PO Q12H 018 2017 Inactive Singulair 10 mg tablet RxNorm: 361808 1 Tablet(s) PO daily 018 2018 Inactive Ventolin HFA 90 mcg/actuation aerosol inhaler RxNorm: 5358639 2 Puff(s) INH QID 018 2018 Inactive Singulair 10 mg tablet RxNorm: 603827 1 Tablet(s) PO daily 018 2017 Inactive buspirone 7.5 mg tablet RxNorm: 808184 1 Tablet(s) PO BID 018 2017 Inactive Prozac 10 mg capsule RxNorm: 920116 1 Capsule(s) PO daily 018 2017 Inactive diclofenac sodium 75 mg tablet,delayed release RxNorm: 039718 1 Tablet(s) PO BID 018 2017 Inactive lisinopril 2.5 mg tablet RxNorm: 992068 1 Tablet(s) PO daily 018 2017 Inactive Neilmed Pediatric Sinus Rinse Refill packet RxNorm: 1 Unit Dose NASAL PRN 018 2021 Inactive metoprolol succinate ER 50 mg tablet,extended release 24 hr RxNorm: 369107 1 Tablet(s) PO daily 018 2017 Inactive levothyroxine 50 mcg tablet RxNorm: 917514 1 Tablet(s) PO daily 018 2017 Inactive TRUEplus Lancets 30 gauge RxNorm: 1 Lancets Miscellaneous QAM 018 2017 Inactive 100/box Ventolin HFA 90 mcg/actuation aerosol inhaler RxNorm: 406703 2 Puff(s) INH QID 018 2017 Inactive Aleve 220 mg capsule RxNorm: 0818970 1 Capsule(s) PO BID 018 2018 Inactive ranitidine 150 mg tablet RxNorm: 227909 1 Tablet(s) PO BID 018 2017 Inactive gabapentin 300 mg capsule RxNorm: 173961 1 Capsule(s) PO TID as needed 018 2017 Inactive atorvastatin 20 mg tablet RxNorm: 319196 1 Tablet(s) PO QHS 018 2017 Inactive True Metrix Glucose Test Strip RxNorm: 1 Test Strips Miscellaneous QAM 018 2017 Inactive 50/container Calcium 600-D3 Plus 600 mg calcium-800 unit-50 mg tablet RxNorm: 1 Tablet(s) PO daily take an additonal tablet for itching. 018 2017 Inactive hydrochlorothiazide 12.5 mg tablet RxNorm: 754519 1 Tablet(s) PO QAM 018 2017 Inactive Flintstones Complete (iron) 18 mg iron chewable tablet RxNorm: 1 Tablet(s) PO daily 018 2017 Inactive True Metrix Glucose Meter RxNorm: miscellaneous 019 2018 Inactive sertraline 50 mg tablet RxNorm: 590879 1 Tablet(s) PO daily 020 2019 Inactive loperamide 2 mg tablet RxNorm: 100693 oral 019 2018 Inactive d-mannose oral powder RxNorm: PO 018 2021 Inactive Symbicort 160 mcg-4.5 mcg/actuation HFA aerosol inhaler RxNorm: 0115156 2 Puff(s) INH BID 019 2018 Inactive Medication Administered No Medication Administered data Procedures Procedure Codes Date [place] Fany Assessment CPT-4: DSWA 04/02 Patient Health [...] Care Planning CPT-4: VACP [facility] CPT-4: DFRA01/13/2021em[place] Fany AssessmentCPT-4: DSWA12/17/2020Urinalysis, dip stickCPT-4: 590109309/24/2020Patient Health QuestionnaireCPT-4: DPHQ 08/19/2020ElectrocardiogramCPT-4: 4076542Tobacco Assessment/Screening CPT-4: TCA01/01/2020Fall Risk AssessmentSNOMED CT: 186606398 CPT-4: DFRA01/01/2020Functional AssessmentCPT-4: DFA01/01/2020[place] Fany AssessmentCPT-4: DSWA11/28/2019Patient Health QuestionnaireCPT-4: DPHQ11/28/2019 [place] Fany AssessmentCPT-4: DSWA10/17/2019HypertensionCPT-4: HTN10/17/[address]: 638224729 CPT-4: DFRA09/19/2019Functional AssessmentCPT-4: DFA111/20/2018Urinalysis, dip stickCPT-4: 422350106/21/2019Tobacco Assessment/ScreeningCPT-4: TCA05/24/2019 Patient Health QuestionnaireCPT-4: DPHQ05/24/2019AHA/REBECCA Classification AssessmentCPT-4: DAHA04/25/2019Controlled Substance ReportCPT-4: CTRSU04/25/2019 Urinalysis, dip stickCPT-4: 665252203/28/2019Urinalysis, dip stickCPT-4: 75084 03/28/20197591L5L-GkmcjxczbqykfheTSL-8: 20659CipdwtuM6Q-GqnnmtlgpzkoeafXPF-9: 75719 AwlikzhU8O-TylmuxsdrhfhfmwMGD-3: 29222FloaawyQ3F-EcpmbvpuhqhlnbyYRJ-9: 60540 YtpcgucF0H-TxanuhwjkecrrxtBWX-7: 10565OtrlpupT4E-CicgwdqaknngvaqLUT-7: 16868 WqglfgpK5D-XysyxlhexvduvozPHT-8: 91461KzougvlX2Y-IgwfjvzhzeyjglvTCN-4: 17637 OlmmcuhX3V-CdsygmmrbmgfrqjGCS-5: 59656[place]xpl[place] ReferralSNOMED CT: 409625721 CPT-4: E92Pwdwccm Reason For Visit No Reason For Visit data Plan of Care Planned Activity Notes Codes Status Date Referral: Pending Gynecology Referral Informatio n Referral ProcessedReferral: Pending Pulmonology Referral InformationReferralProcessed Referral: Pending Psychiatry Referral InformationReferralInitiatedReferral: Pending Respiratory Services Referral InformationReferralInitiatedReferral: Pending Ophthalmology Referral InformationReferralInitiatedReferral: [facility] WPtel: [address] [place] [address] USWriter placed a call out to the patient to notify her that it has been recommended that she be seenby a urologist. Patient agreed to be seen, does not have a provider of choice and no transportationissues. Supervisor Shuttle Preparation faxed referral and clinical notes to [facility] in [place], [place] near the patient's home. Patient to [...] prefers a provider in the [place] or [place] area. Supervisor [employer] placed a call out to everyone listed in the area and the only location that was able to accept the patient's insurance was [facility] [address] [place] [address] and spoke with Maylin. Maylin asked that the patient's referral, face sheet and visit notes be faxed to . Supervisor [employer] faxed over requested documents. Patient appointment confirmation letter generated and mailed to her home address. Patient to call to schedule an appointment.ProcessedReferral: [facility] WPtel: [address] [id number] [place]Patient notified that it has been advised that she be seen by Neurology. Patient agreed to be seen and prefers to be seen by a provider in the [place], [place] area. Patient denies any concerns with transportation, and prefers to schedule her own appointment. Supervisor [employer] placed a call out to [facility] and spoke with Neeraj P: who confirmed that their office is able to acceptnew patients and the patient's insurance. After confirming the providers fax number, pattern chart writer faxed over the patient's referral, and [...]
--- OUTSIDE RECORDS SUMMARY | 2023-12-07 02:20 | XMS_ITS | CCD ---
Author Name Leena Culver NP Address [address] [place] [address] [place] [id number] Phone Organization [facility] Phone Care Team Providers Care Dairy Tester Name Role Phone Anna Culver NP Primary Care Provider Unav ailable Unavailable Chronic Care Management Unavaila ble Summary Purpose DataExchange Insurance Providers Payer name Policy type / Coverage type Covered republican ID Effective Begin Date Effective End Date SUKI BUTTS MARIA ESTHER [id number] Unknown Unknown Family history Mother Diagnosis Age [...] 05/31/2018 Education level Unknown Some High School 10th05/31/20185579LdqltzozjoPcqyyjkRdjejecqnv99/29/2018Tobacco historySNOMED CT: [id number] never smoked or chewed rzvpeok3805/31/2018Alcohol historySNOMED CT: 640116241Qgdwm drinks pyjgsui1605/31/2018Has the patient ever used illegal drugs? UnknownHas never used illegal drugs05/31/2018DNR Order/ Advanced Directive UnknownFull Code05/31/2018 Allergies, Adverse Reactions, Alerts Substance Reaction Codes Entered Date Inactivated Date Status OxyContin itch, RxNorm: 289465 01/13/2021 No Inactive Da te Active *No known food allergies Cgcjdrw6809/06/2018No Inactive DateActiveMethylprednisolonehivesRxNorm: 6902 09/06/2018No Inactive DateActive Problems Condition Codes Effective Dates Condition St atus Adult BMI 50.0-59.9 kg/sq m ICD-10: Z68. 43 ICD-9: V85.4308/ActiveHypertensive heart diseaseICD-10: I11.9 ICD-9: 402.9003/2ActiveHypothyroidICD-10: E03.9 ICD-9: 244.912/01/2018ActiveInfluenza vaccine refusedICD-10: Z28.21 ICD-9: V64.0609/ctiveMajor depression, recurrentICD-10: F33.9 ICD-9: 296.3009/ctiveObstructive sleep apnea (adult) (pediatric)ICD-10: G47.33 ICD-9: 327.2309/ActiveType 2 diabetes mellitus with peripheral neuropathy ICD-10: E11.42 ICD-9: 250.6002/ActiveAbscessICD-10: L02.91 ICD-9: 682.907/ctiveAdjustment disorder with mixed anxiety and depressed moodICD-10: F43.23 ICD-9: 309.2812/01/2018ActiveHyperlipidemia, mixedICD-10: E78.2 ICD-9: 272.203/2ActiveHypertensionICD-10: I10 ICD-9: 401.903/2Active(Z00.00-V70.9) Encounter for general adult medical examination without abnormal findingsICD-10: Z00.00 ICD-9: V70.905/2ActiveAllergic rhinitisICD-10: J30.9 ICD-9: 477.903/2ActiveAsthmaICD-10: J45.909 ICD-9: 493.9011/03/2018ActiveGERD (gastroesophageal reflux disease)ICD-10: K21.9 ICD-9: 530.8112ActiveEdema, unspecifiedICD-10: R60.9 ICD-9: 782.310/06/2018ActiveVitamin D deficiencyICD-10: E55.9 ICD-9: 268.903/ctiveHypertensive heart disease [...] ICD-9: 786.5002/InactiveChronic kidney disease, unspecifiedICD-10: N18.9 ICD-9: 585.909InactiveEncounter for immunizationICD-10: Z23 ICD-9: V03.907/InactiveEncounter for preprocedural cardiovascular examinationICD-10: Z01.810 ICD-9: V72.8106InactiveHeadacheICD-10: R51 ICD-9: 784.001/10/2018InactiveOther senior care (current) drug [...] (4 mg/3 mL) subcutaneous pen injector RxNorm: 1480155 Take 1 Unit Dose Subcutaneous QWeek Tuesday2021 Inactive lisinopril 2.5 mg tablet RxNorm: 967074 Take 1 Tablet(s) Oral every day 022 2021 Inactive lisinopril 2.5 mg tablet RxNorm: 669415 Take 1 Tablet(s) Oral every day 022 2022 Inactive hydrochlorothiazide 25 mg tablet RxNorm: 263929 Take 1 Tablet(s) Oral every day 022 2021 Inactive Ozempic 1 mg/dose (4 mg/3 mL) subcutaneous pen injector RxNorm: 8553937 Take 1 Unit Dose Subcutaneous QWeek 2021 Inactive famotidine 20 mg tablet RxNorm: 486094 Take 1 Tablet(s) Oral every morning 2021 Inactive levothyroxine 50 mcg tablet RxNorm: 772100 Take 1 Tablet(s) Oral every day 2021 Inactive atorvastatin 20 mg tablet RxNorm: 193193 Take 1 Tablet(s) Oral every night at bedtime 2021 Inactive Cleocin T 1 % lotion RxNorm: 847722 Take 2 Gram(s) Topical every day 2021 Inactive Cleocin T 1 % lotion RxNorm: 855935 Take 2 Gram(s) Topical every day 2021 Inactive Ozempic 1 mg/dose (4 mg/3 mL) subcutaneous pen injector RxNorm: 5113477 Take 1 Unit Dose Subcutaneous QWeek 2021 Inactive Ozempic 0.25 mg or 0.5 mg (2 mg/1.5 mL) subcutaneous pen injector RxNorm: 1278464 INJECT 0.5 MGS SUBCUTANEOUSLY EVERY WEEK 2021 Inactive omeprazole 20 mg capsule,delayed release RxNorm: 961613 Take 1 Capsule(s) Oral every evening 2021 Inactive levothyroxine 50 mcg tablet RxNorm: 995339 Take 1 Tablet(s) Oral every day 2021 Inactive atorvastatin 20 mg tablet RxNorm: 219459 Take 1 Tablet(s) Oral every night at bedtime 022 2021 Inactive This refill negates all other refills of this medication lisinopril 2.5 mg tablet RxNorm: 909156 Take 1 Tablet(s) Oral every day 022 2021 Inactive gabapentin 300 mg capsule RxNorm: 919226 Take 1 Capsule(s) Oral three times a day 2021 Inactive montelukast 10 mg tablet RxNorm: 190020 Take 1 Tablet(s) Oral every day 022 2021 Inactive cholecalciferol (vitamin D3) 50 mcg (2,000 unit) tablet RxNorm: 877792 Take 1 Tablet(s) Oral every day 022 2022 Inactive Myrbetriq 50 mg tablet,extended release RxNorm: 2809449 1 Tablet(s) Oral every day No Stop Date Active Ozempic 0.25 mg or 0.5 mg (2 mg/1.5 mL) subcutaneous pen injector RxNorm: 2891576 inject 0.5 milligrams subcutaneously every week 2021 Inactive Ozempic 0.25 mg or 0.5 mg (2 mg/1.5 mL) subcutaneous pen injector RxNorm: 9159919 Take 0.5 Capsule(s) Injection once a week 022 2021 Inactive omeprazole 20 mg capsule,delayed release RxNorm: 568685 Take 1 Capsule(s) Oral every evening 2020 Inactive Ozempic 0.25 mg or 0.5 mg (2 mg/1.5 mL) subcutaneous pen injector RxNorm: 1283311 Take 0.25 Milligram(s) Subcutaneous once a week 021 2021 Inactive Easy Touch Alcohol Prep Pads RxNorm: 796676 USE DIRECTED EACH MORNING 021 2021 Inactive Probiotic 10 billion cell capsule RxNorm: 1784847 Take 1 Capsule(s) Oral every day 021 2021 Inactive levothyroxine 50 mcg tablet RxNorm: 205121 Take 1 Tablet(s) Oral every day 021 2020 Inactive Acid Lettuce Trimmer (famotidine) 20 mg tablet RxNorm: 276861 Take 1 Tablet(s) Oral every morning 021 2020 Inactive Heartburn Relief (famotidine) 10 mg tablet RxNorm: 650559 Take 1 Tablet(s) Oral QAM 2020 Inactive levothyroxine 50 mcg tablet RxNorm: 521432 Take 1 Tablet(s) Oral QD 2020 Inactive Singulair 10 mg tablet RxNorm: 760770 TAKE (1) TABLET BY MOUTH DAILY 2020 Inactive metformin 1,000 mg tablet RxNorm: 379460 1 Tablet(s) Oral two times a day 2021 Inactive lisinopril 2.5 mg tablet RxNorm: 681640 Take 1 Tablet(s) Oral every day 021 2020 Inactive hydrochlorothiazide 25 mg tablet RxNorm: 287235 Take 1 Tablet(s) Oral every day 021 2020 Inactive ondansetron 4 mg disintegrating tablet RxNorm: 642649 1 Tablet(s) Oral two times a day 021 2020 Inactive Sudafed 12 Hour 120 mg tablet,extended release RxNorm: 8076468 TAKE 1 TABLET BY MOUTH EVERY 12 HOURS NEEDED 2021 Inactive Heartburn Relief (famotidine) 10 mg tablet RxNorm: 899122 Take 1 Tablet(s) Oral every morning 021 2020 Inactive omeprazole 20 mg capsule,delayed release RxNorm: 346241 1 Capsule(s) Oral every evening 021 2020 Inactive sertraline 100 mg tablet RxNorm: 243799 2 Tablet(s) Oral every day 021 2020 Inactive levothyroxine 50 mcg tablet RxNorm: 176146 TAKE (1) TABLET BY MOUTH DAILY 021 2020 Inactive metformin 500 mg tablet RxNorm: 379851 1 Tablet(s) Oral two times a day take with 500mg to equal 1000mg 2020 Inactive gabapentin 300 mg capsule RxNorm: 449295 TAKE 1 CAPSULE BY MOUTH THREE TIMES A DAY 021 2020 Inactive lisinopril 2.5 mg tablet RxNorm: 295225 TAKE 1 TABLET BY MOUTH DAILY 2020 Inactive gabapentin 300 mg capsule RxNorm: 751211 TAKE 1 CAPSULE BY MOUTH THREE TIMES A DAY 021 2020 Inactive Singulair 10 mg tablet RxNorm: 283667 TAKE (1) TABLET BY MOUTH DAILY 2020 Inactive metformin 1,000 mg tablet RxNorm: 314268 1 Tablet(s) Oral two times a day 2020 Inactive atorvastatin 40 mg tablet RxNorm: 093540 1 Tablet(s) Oral every day 021 2020 Inactive omeprazole 20 mg capsule,delayed release RxNorm: 371690 1 Capsule(s) Oral every evening 2020 Inactive famotidine 10 mg tablet RxNorm: 510472 1 Tablet(s) Oral every morning 021 2020 Inactive Alcohol Prep Pads RxNorm: 390559 USE EACH MORNING 021 2020 Inactive omeprazole 20 mg capsule,delayed release RxNorm: 202475 1 Capsule(s) Oral two times a day 021 2021 Inactive omeprazole 20 mg capsule,delayed release RxNorm: 940093 TAKE 1 CAPSULE BY MOUTH EVERY DAY 2021 Inactive Macrobid 100 mg capsule RxNorm: 359260 1 Capsule(s) Oral every 12 hours with food 2020 Inactive omeprazole 20 mg capsule,delayed release RxNorm: 901970 1 Capsule(s) Oral two times a day 2021 Inactive metformin 1,000 mg tablet RxNorm: 417044 1 Tablet(s) Oral two times a day 2020 Inactive start on September 11, 2020 metformin 500 mg tablet RxNorm: 634163 1 Tablet(s) Oral two times a day take with 500mg to equal 1000mg 2019 Inactive gabapentin 300 mg capsule RxNorm: 809810 TAKE 1 CAPSULE BY MOUTH THREE TIMES DAILY 2020 Inactive cetirizine 10 mg tablet RxNorm: 5155000 TAKE (1) TABLET BY MOUTH DAILY 2020 Inactive metformin 500 mg tablet RxNorm: 113754 1 Tablet(s) Oral two times a day 2019 Inactive loperamide 2 mg tablet RxNorm: 284118 1 Tablet(s) Oral as needed take one tablet after each loose stool, maximum of 8 tablets in 24 hours 2021 Inactive Sudafed 12 Hour 120 mg tablet,extended release RxNorm: 0948321 TAKE 1 TABLET BY MOUTH EVERY 12 HOURS NEEDED 020 2019 Inactive hydrochlorothiazide 25 mg tablet RxNorm: 999627 TAKE (1) TABLET BY MOUTH EVERY DAY 2019 Inactive omeprazole 20 mg capsule,delayed release RxNorm: 171994 TAKE 1 CAPSULE BY MOUTH EVERY DAY 2020 Inactive metformin 500 mg tablet RxNorm: 182539 1 Tablet(s) Oral every day 2019 Inactive True Metrix Glucose Test Strip RxNorm: 1 Test Strips Miscellaneous two times a day as needed No Stop Date Active metformin 500 mg tablet RxNorm: 406223 1 Tablet(s) Oral every day 020 2019 Inactive diclofenac sodium 75 mg tablet,delayed release RxNorm: 906261 1 Tablet(s) PO BID 2021 Inactive This refill negates all other refills of this medication Sudafed 12 Hour 120 mg tablet,extended release RxNorm: 7358990 TAKE 1 TABLET BY MOUTH EVERY 12 HOURS NEEDED 020 2019 Inactive True Metrix Glucose Test Strip RxNorm: 1 Test Strips Miscellaneous every morning 020 2019 Inactive 100/container True Metrix Glucose Test Strip RxNorm: 1 Test Strips Miscellaneous QAM 020 2019 Inactive 100/container loperamide 2 mg tablet RxNorm: 133841 1 Tablet(s) Oral as needed take one tablet after each loose stool, maximum of 8 tablets in 24 hours 020 2019 Inactive cetirizine 10 mg tablet RxNorm: 8067654 1 Tablet(s) PO daily 020 2019 Inactive loperamide 2 mg tablet RxNorm: 435913 1 Tablet(s) Oral as needed take one tablet after each loose stool, maximum of 8 tablets in 24 hours 020 2019 Inactive quetiapine 100 mg tablet RxNorm: 327634 1 Tablet(s) Oral every night at bedtime 2019 Inactive levothyroxine 50 mcg tablet RxNorm: 605794 1 Tablet(s) PO daily 020 2020 Inactive gabapentin 300 mg capsule RxNorm: 036893 1 Capsule(s) PO TID 2019 Inactive levothyroxine 50 mcg tablet RxNorm: 547030 1 Tablet(s) PO daily 2019 Inactive lisinopril 2.5 mg tablet RxNorm: 888185 1 Tablet(s) PO daily 020 2020 Inactive gabapentin 300 mg capsule RxNorm: 902776 1 Capsule(s) PO TID 2019 Inactive cetirizine 10 mg tablet RxNorm: 5951401 1 Tablet(s) PO daily 020 2019 Inactive Singulair 10 mg tablet RxNorm: 342303 1 Tablet(s) PO daily 020 2020 Inactive gentamicin 0.3 % eye drops RxNorm: 507112 1 Drop(s) ophthalmic (eye) four times a day 2019 Inactive gentamicin 0.3 % eye drops RxNorm: 802619 1 Drop(s) ophthalmic (eye) four times a day 2019 Inactive gentamicin 0.3 % eye drops RxNorm: 611839 1 Drop(s) ophthalmic (eye) four times a day 2019 Inactive hydrochlorothiazide 25 mg tablet RxNorm: 349679 1 Tablet(s) Oral every day 2019 Inactive Sudafed 12 Hour 120 mg tablet,extended release RxNorm: 4475150 TAKE (1) TABLET BY MOUTH EVERY 12 HOURS NEEDED 2019 Inactive loperamide 2 mg tablet RxNorm: 699206 1 Tablet(s) Oral as needed take one tablet after each loose stool, maximum of 8 tablets in 24 hours 2019 Inactive loperamide 2 mg tablet RxNorm: 129549 1 Tablet(s) Oral as needed take one tablet after each loose stool, maximum of 8 tablets in 24 hours 020 2019 Inactive atorvastatin 40 mg tablet RxNorm: 051598 1 Tablet(s) Oral every day 2020 Inactive quetiapine 100 mg tablet RxNorm: 738557 1 Tablet(s) Oral every night at bedtime 2019 Inactive sertraline 100 mg tablet RxNorm: 227513 1 Tablet(s) Oral 2019 Inactive omeprazole 20 mg capsule,delayed release RxNorm: 103825 1 Capsule(s) Oral every day 2019 Inactive amoxicillin 250 mg capsule RxNorm: 348289 1 Capsule(s) Oral three times a day 2019 Inactive multivitamin with iron-mineral tablet RxNorm: 1 Tablet(s) Oral every day 2021 Inactive cetirizine 10 mg tablet RxNorm: 1825930 1 Tablet(s) PO daily 2019 Inactive This refill negates all other refills of this medication. Please do not auto refill Singulair 10 mg tablet RxNorm: 919934 1 Tablet(s) PO daily 2019 Inactive This refill negates all other refills of this medication gabapentin 300 mg capsule RxNorm: 221773 1 Capsule(s) PO TID 2019 Inactive lisinopril 2.5 mg tablet RxNorm: 749372 1 Tablet(s) PO daily 2019 Inactive levothyroxine 50 mcg tablet RxNorm: 317556 1 Tablet(s) PO daily 2019 Inactive This refill negates all other refills of this medication hydrochlorothiazide 25 mg tablet RxNorm: 071719 1 Tablet(s) Oral every day 2019 Inactive fenugreek seed extract 500 mg capsule RxNorm: 1 Capsule(s) Oral three times a day 2021 Inactive Alcohol Prep Pads RxNorm: 005864 1 Patch TOP QAM 2020 Inactive loperamide 2 mg tablet RxNorm: 125081 1 Tablet(s) Oral as needed take one [...] 2019 Inactive hydrochlorothiazide 25 mg tablet RxNorm: 818879 1 Tablet(s) Oral every day 2019 Inactive Sudafed 12 Hour 120 mg tablet,extended release RxNorm: 8728735 1 Tablet(s) Oral every 12 hours as needed 019 2018 Inactive omeprazole 20 mg capsule,delayed release RxNorm: 576537 1 Capsule(s) Oral every day 019 2019 Inactive Sudafed 12 Hour 120 mg tablet,extended release RxNorm: 6262193 1 Tablet(s) Oral every 12 hours as needed 2018 Inactive pantoprazole 40 mg tablet,delayed release RxNorm: 726677 1 Tablet(s) Oral every day 019 2018 Inactive discontinue any other H2Blkr. and PPI albuterol sulfate 2.5 mg/3 mL (0.083 %) solution for nebulization RxNorm: 223051 1 Vial Inhalation every four hours as needed as needed for dyspnea 2019 Inactive 60/box. This refill negates all other refills of this medication. Please do not fill early. Please do not auto refill. Symbicort 160 mcg-4.5 mcg/actuation HFA aerosol inhaler RxNorm: 1770036 2 Puff(s) INH BID No Stop Date Active Alcohol Prep Pads RxNorm: 268182 1 Patch TOP QAM 019 2019 Inactive Ventolin HFA 90 mcg/actuation aerosol inhaler RxNorm: 455629 2 Puff(s) INH QID 2019 Inactive Please do not fill early. Please do not auto refill. This refill negates all other refills of this medication True Metrix Glucose Test Strip RxNorm: 1 Test Strips Miscellaneous QAM 019 2019 Inactive 100/container atorvastatin 40 mg tablet RxNorm: 450108 1 Tablet(s) Oral every day 019 2019 Inactive buspirone 7.5 mg tablet RxNorm: 238310 1 Tablet(s) PO BID 019 2020 Inactive This refill negates all other refills of this medication hydrochlorothiazide 12.5 mg tablet RxNorm: 203564 1 Tablet(s) PO QAM 019 2019 Inactive levmetamfetamine 50 mg nasal inhaler RxNorm: 1 Unit(s) NASAL Q3-4H Do not use more than every 3 hours or 8 times/24hours 2021 Inactive Please do not auto refill. This refill negates all other refills of this medication Ventolin HFA 90 mcg/actuation aerosol inhaler RxNorm: 954970 2 Puff(s) INH QID 019 2018 Inactive Please do not fill early. Please do not auto refill. This refill negates all other refills of this medication Singulair 10 mg tablet RxNorm: 743531 1 Tablet(s) PO daily 019 2019 Inactive This refill negates all other refills of this medication cetirizine 10 mg tablet RxNorm: 7668586 1 Tablet(s) PO daily 019 2019 Inactive This refill negates all other refills of this medication. Please do not auto refill levothyroxine 50 mcg tablet RxNorm: 353452 1 Tablet(s) PO daily 019 2019 Inactive This refill negates all other refills of this medication diclofenac sodium 75 mg tablet,delayed release RxNorm: 908488 1 Tablet(s) PO BID 019 2019 Inactive This refill negates all other refills of this medication ranitidine 150 mg tablet RxNorm: 060847 1 Tablet(s) PO BID 019 2018 Inactive This refill negates all other refills of this medication Calcium 600-D3 Plus (mag-zinc) 600 mg calcium-800 unit-50 mg tablet RxNorm: 1 Tablet(s) PO daily take an additonal tablet for itching. 019 2018 Inactive This refill negates all other refills of this medication albuterol sulfate 2.5 mg/3 mL (0.083 %) solution for nebulization RxNorm: 432976 1 Vial INH QID 019 2018 Inactive 60/box. This refill negates all other refills of this medication. Please do not fill early. Please do not auto refill. lisinopril 2.5 mg tablet RxNorm: 484525 1 Tablet(s) PO daily 019 2019 Inactive gabapentin 300 mg capsule RxNorm: 052165 1 Capsule(s) PO TID 019 2019 Inactive atorvastatin 20 mg tablet RxNorm: 841079 1 Tablet(s) PO QHS 2018 Inactive This refill negates all other refills of this medication TRUEplus Lancets 30 gauge RxNorm: 1 Lancets Miscellaneous QAM 019 2018 Inactive 100/box gabapentin 300 mg capsule RxNorm: 461269 1 Capsule(s) PO TID 019 2018 Inactive Flintstones Complete (iron) 18 mg iron chewable tablet RxNorm: 1 Tablet(s) PO daily 2021 Inactive This refill negates all other refills of this medication gabapentin 300 mg capsule RxNorm: 701856 1 Capsule(s) PO TID as needed 2018 Inactive True Metrix Glucose Test Strip RxNorm: 1 Test Strips Miscellaneous QA 2018 Inactive 100/container Alcohol Prep Pads RxNorm: 434971 1 Patch TOP QAM 2018 Inactive TRUEplus Lancets 30 gauge RxNorm: 1 Lancets Miscellaneous QAM 019 2018 Inactive 100/box lisinopril 2.5 mg tablet RxNorm: 679596 1 Tablet(s) PO daily 019 2018 Inactive ranitidine 150 mg tablet RxNorm: 111369 1 Tablet(s) PO BID 019 2018 Inactive This refill negates all other refills of this medication albuterol sulfate 2.5 mg/3 mL (0.083 %) solution for nebulization RxNorm: 291135 1 Vial INH QID 019 2018 Inactive [...] this medication gabapentin 300 mg capsule RxNorm: 902635 1 Capsule(s) PO TID as needed 019 2018 Inactive atorvastatin 20 mg tablet RxNorm: 090077 1 Tablet(s) PO QHS 019 2018 Inactive This refill negates all other refills of this medication trazodone 50 mg tablet RxNorm: 363522 1 Tablet(s) PO QHS 019 2018 Inactive This refill negates all other refills of this medication Ventolin HFA 90 mcg/actuation aerosol inhaler RxNorm: 978875 2 Puff(s) INH QID 019 2018 Inactive Please do not fill early. Please do not auto refill. This refill negates all other refills of this medication Calcium 600-D3 Plus 600 mg calcium-800 unit-50 mg tablet RxNorm: 1 Tablet(s) PO daily take an additonal tablet for itching. 019 2018 Inactive This refill negates all other refills of this medication Singulair 10 mg tablet RxNorm: 597683 1 Tablet(s) PO daily 019 2018 Inactive This refill negates all other refills of this medication buspirone 7.5 mg tablet RxNorm: 924997 1 Tablet(s) PO BID 019 2018 Inactive This refill negates all other refills of this medication diclofenac sodium 75 mg tablet,delayed release RxNorm: 021459 1 Tablet(s) PO BID 019 2018 Inactive This refill negates all other refills of this medication hydrochlorothiazide 12.5 mg tablet RxNorm: 588074 1 Tablet(s) PO QAM 01/19/2018 Inactive metoprolol succinate ER 50 mg tablet,extended release 24 hr RxNorm: 413734 1 Tablet(s) PO daily 2018 Inactive This refill negates all other refills of this medication levothyroxine 50 mcg tablet RxNorm: 068068 1 Tablet(s) PO daily 019 2018 Inactive This refill negates all other refills of this medication cetirizine 10 mg tablet RxNorm: 5728269 1 Tablet(s) PO daily 019 2018 Inactive This refill negates all other refills of this medication. Please do not auto refill Flintstones Complete (iron) 18 mg iron chewable tablet RxNorm: 1 Tablet(s) PO daily 019 2018 Inactive This refill negates all other refills of this medication buspirone 7.5 mg tablet RxNorm: 917080 1 Tablet(s) PO BID 2018 Inactive cetirizine 10 mg tablet RxNorm: 8385884 1 Tablet(s) PO daily 2018 Inactive Guaiasorb DM 10 mg-100 mg/5 mL oral liquid RxNorm: 361546 10 Milliliter(s) PO As needed every 4 hr 2018 Inactive Vicks Vaporub 4.7 %-1.2 %-2.6 % topical ointment RxNorm: 4238494 1 Application TOP TID 2018 Inactive levmetamfetamine 50 mg nasal inhaler RxNorm: 1 Unit(s) NASAL Q3-4H 2017 Inactive sertraline 50 mg tablet RxNorm: 862732 1 Tablet(s) PO daily 2018 Inactive Please note dose trazodone 50 mg tablet RxNorm: 594877 1 Tablet(s) PO QHS 018 2018 Inactive sertraline 50 mg tablet RxNorm: 306537 1 Tablet(s) PO daily 2017 Inactive amoxicillin 500 mg tablet RxNorm: 148880 1 Tablet(s) PO Q12H 018 2017 Inactive albuterol sulfate 2.5 mg/3 mL (0.083 %) solution for nebulization RxNorm: 010714 1 Vial INH QID 018 2018 Inactive 60/box. Please do not fill early. Please do not auto refill. Prozac 10 mg capsule RxNorm: 106294 1 Capsule(s) PO daily 018 2017 Inactive buspirone 7.5 mg tablet RxNorm: 682064 1 Tablet(s) PO BID 018 2018 Inactive gabapentin 300 mg capsule RxNorm: 769416 1 Capsule(s) PO TID as needed 018 2018 Inactive hydrochlorothiazide 12.5 mg tablet RxNorm: 166276 1 Tablet(s) PO QAM 018 2018 Inactive ranitidine 150 mg tablet RxNorm: 472917 1 Tablet(s) PO BID 018 2018 Inactive Macrobid 100 mg capsule RxNorm: 175954 1 Capsule(s) PO Q12H 018 2017 Inactive Singulair 10 mg tablet RxNorm: 667456 1 Tablet(s) PO daily 018 2018 Inactive Ventolin HFA 90 mcg/actuation aerosol inhaler RxNorm: 2223385 2 Puff(s) INH QID 018 2018 Inactive Singulair 10 mg tablet RxNorm: 202955 1 Tablet(s) PO daily 018 2017 Inactive buspirone 7.5 mg tablet RxNorm: 107797 1 Tablet(s) PO BID 018 2017 Inactive Prozac 10 mg capsule RxNorm: 735524 1 Capsule(s) PO daily 018 2017 Inactive diclofenac sodium 75 mg tablet,delayed release RxNorm: 065456 1 Tablet(s) PO BID 018 2017 Inactive lisinopril 2.5 mg tablet RxNorm: 166932 1 Tablet(s) PO daily 018 2017 Inactive Neilmed Pediatric Sinus Rinse Refill packet RxNorm: 1 Unit Dose NASAL PRN 018 2021 Inactive metoprolol succinate ER 50 mg tablet,extended release 24 hr RxNorm: 772681 1 Tablet(s) PO daily 018 2017 Inactive levothyroxine 50 mcg tablet RxNorm: 038353 1 Tablet(s) PO daily 018 2017 Inactive TRUEplus Lancets 30 gauge RxNorm: 1 Lancets Miscellaneous QAM 018 2017 Inactive 100/box Ventolin HFA 90 mcg/actuation aerosol inhaler RxNorm: 415303 2 Puff(s) INH QID 018 2017 Inactive Aleve 220 mg capsule RxNorm: 8050318 1 Capsule(s) PO BID 018 2018 Inactive ranitidine 150 mg tablet RxNorm: 802527 1 Tablet(s) PO BID 018 2017 Inactive gabapentin 300 mg capsule RxNorm: 155646 1 Capsule(s) PO TID as needed 018 2017 Inactive atorvastatin 20 mg tablet RxNorm: 994312 1 Tablet(s) PO QHS 018 2017 Inactive True Metrix Glucose Test Strip RxNorm: 1 Test Strips Miscellaneous QA 018 2017 Inactive 50/container Calcium 600-D3 Plus 600 mg calcium-800 unit-50 mg tablet RxNorm: 1 Tablet(s) PO daily take an additonal tablet for itching. 018 2017 Inactive hydrochlorothiazide 12.5 mg tablet RxNorm: 548032 1 Tablet(s) PO QAM 018 2017 Inactive Flintstones Complete (iron) 18 mg iron chewable tablet RxNorm: 1 Tablet(s) PO daily 018 2017 Inactive True Metrix Glucose Meter RxNorm: miscellaneous 019 2018 Inactive sertraline 50 mg tablet RxNorm: 988923 1 Tablet(s) PO daily 020 2019 Inactive loperamide 2 mg tablet RxNorm: 911949 oral 019 2018 Inactive d-mannose oral powder RxNorm: PO 018 2021 Inactive Symbicort 160 mcg-4.5 mcg/actuation HFA aerosol inhaler RxNorm: 8133129 2 Puff(s) INH BID 019 2018 Inactive Medication Administered No Medication Administered data Results Observation Observation Code Item Item Code Result Date S ervice Location [id number] [place] 4548-4 Glyco HGB A1C 78114-4 5.8 % 06/24/2022 [facility] [address], [place] [id number] mg/dL06/24/2022 [facility] [address], [place] [id number] uIU/mL06/24/2022 [facility] [address], [place] [address]BYSY 14 (METABOLIC PANEL)[id number] mg/dL06/24/2022 [facility] [address] [place], [place] 31751UXLX 14 (METABOLIC PANEL)85473KQE4028-767 mg/dL06/24/2022 [facility] [address], [place] [address]RWCG 14 (METABOLIC PANEL)73469Zgpxbfooqy4207-86.8 mg/dL06/24/2022 [facility] [address], [place] [address]LMEK 14 (METABOLIC PANEL)55712UJB/Creat Hepfz9216-764.709 [facility] [address], [place] [address]NFKT 14 (METABOLIC PANEL)07043CRX Suqwhwhyy82907-980 mL/min/1.73m2 06/24/2022 [facility] [address], [place] [address]KBXW 14 (METABOLIC PANEL)16249Vcegzh2671-9844 mmol/L06/24/2022 [facility] [address], [place] [address]OQTO 14 (METABOLIC PANEL)32536Nxvznjuaa9396-58.2 mmol/L06/24/2022 [facility] [address], [place] [address]UOEU 14 (METABOLIC PANEL)73010Womwjrfc2185-3248 mmol/L06/24/2022 [facility] [address] [place], [place] [address]QOGI 14 (METABOLIC PANEL)41961Wpjmt QM74293-213 mmol/L06/24/2022 [facility] [address], [place] [address]TZAT 14 (METABOLIC PANEL)83642Rctoi Psk1835-816.2 mEq/L06/24/2022 [facility] [address], [place] [address]STEG 14 (METABOLIC PANEL)92926Ughybxppgz Serum Pgaukeojjz05046-6337 mOsm/kg06/24/2022 [facility] [address] [place] [address]QQUF 14 (METABOLIC PANEL)03200Tgmacro08608-14.7 g/dL06/24/2022 [facility] [address] [place] [address]PTSO 14 (METABOLIC PANEL)59320Obqub Lekzrbc2035-77.2 g/dL06/24/2022 [facility] [address] [place] [address] 28247ZIHM 14 (METABOLIC PANEL)07082Wtjpywhw6927-98.5 g/dL06/24/2022 [facility] [address] [place] [address]QSCH 14 (METABOLIC PANEL)39094Psjtvmn/Globulin Qggym8085-78.1 06/24/2022 [facility] [address] [place] [address] 51690DLNM 14 (METABOLIC PANEL)72769FWF QUOG2928-693.00 U/L06/24/2022 [facility] [address] [place] [address]OJUO 14 (METABOLIC PANEL)74131YCEP/YKP7212-330 U/L06/24/2022 [facility] [address] [place] [address]70[address]DWEZ 14 (METABOLIC PANEL)75262PWLN/EWD7128-340 U/L06/24/2022 [facility] [address] [place], [place] [address]SAND 14 (METABOLIC PANEL)20098Svqky Omzdohdyc5471-45.4 mg/dL 06/24/2022 [facility] [address] [place], [place] [address]IZXK 14 (METABOLIC PANEL)31468Dbsyzfv60488-12.6 mg/dL06/24/2022 [facility] [address] [facility] [place] [address]JTOT 14 (METABOLIC PANEL)18488Hlybjnuzk Jtibbee51278-967.0 mg/dL 06/24/2022 [facility] [address], [place] [address]DBZFMPOLYLLS (URINE)68717Frdwvtxrdqxh70243-02.6 mg/dL06/24/2022 [facility] [address], [place] [address]MUEIYECOLGBB (URINE)77826Hdemiggluxhk/Creatinine Nukoc01233-50 MCG/MBLCWJX1006/24/2022 [facility] [address], [place] [address]TQSPIIXLVXWM (URINE)99908Yzphd Vpolwjtrie7843-466.10 mg/dL 06/24/2022 [facility] [address] [place] [address] Procedures Procedure Codes Date Glucose Blood Test CPT-4: 48386 06/23/2022 [place] Fany Assessment CPT-4: DSWA 04/02 Patient Health [...] CPT-4: VACP Fall Risk Assessment SNOMED CT: 14113321 4 CPT-4: DFRA01/13/2021[place] Fany AssessmentCPT-4: DSWA12/17/2020Urinalysis, dip stickCPT-4: 5634488Patient Health QuestionnaireCPT-4: DPHQ 08/19/2020ElectrocardiogramCPT-4: 3931159Tobacco Assessment/Screening CPT-4: TCA01/01/2020Fall Risk AssessmentSNOMED CT: 829535801 CPT-4: DFRA01/01/2020Functional AssessmentCPT-4: DFA01/01/2020[place] Fany AssessmentCPT-4: DSWA11/28/2019Patient Health QuestionnaireCPT-4: DPHQ11/28/2019 [place] Fany AssessmentCPT-4: DSWA10/17/2019HypertensionCPT-4: HTN10/17/[address]: 787763307 CPT-4: DFRA09/19/2019Functional AssessmentCPT-4: DFA111/20/2018Urinalysis, dip stickCPT-4: 4225155Tobacco Assessment/ScreeningCPT-4: TCA05/24/2019 Patient Health QuestionnaireCPT-4: DPHQ05/24/2019AHA/REBECCA Classification AssessmentCPT-4: DAHA04/25/2019Controlled Substance ReportCPT-4: CTRSU04/25/2019 Urinalysis, dip stickCPT-4: 6445615Urinalysis, dip stickCPT-4: 73989 03/28/20191835B2V-RnuylbxtvcocfqcDCM-0: 65226IjhkpneI1C-RyhsvyunfkpgrloZFA-2: 35453 IekcaswS7C-KjapodrtdlictavGMG-8: 20320PtpwpugT5T-SbgdvaonyjslxjjIYO-6: 09388 WxirhllW2A-FdbrlbxuaynpbfcJLB-3: 88912LquxpmhN4J-LkspcfyfjlngvqcLRP-5: 22816 LmffhdbV7O-LzmkjetfdcgrkxsNZW-2: 76861BqyrkqtP7E-HctunssqeewqthxUDV-3: 61767 NqqlqtkE0K-TjbxyhfqcbvtxzvFSY-5: 12630HzylnfvC9A-TxmzltrxfanholbKUU-4: [address]: 510060669 CPT-4: C72Rmuisih Vital Signs Date Vital 06/23/2022 Blood Pressure 1: 130/78 Code: 8480-6 BMI: 55.2 Code: 27142-3 Heart Rate 1: 75 bpm Height: 4'11 Code: 8302-2 Random Blood Sugar: 114/NaN Respiratory Rate: 18 bpm SpO2: 98% Temperature: 36.3 (C) / 97.3 (F) Weight: 273 lbs 3 oz Code: 22652-9 Reason For Visit Reason For Visit Effective Dates Notes diabetes mellitus 06/23/2022 hypertension 06/23/2022 weight gain/obesity 06/23/2022 Interim health update 06/23/2022 Encounters Encounter Performer Location Location Address Codes Magdi e ([id number]) HOME VISIT JULIA HUFF Diagnosis: Type 2 diabetes mellitus with peripheral neuropathy[ICD10: E11.42] Diagnosis: Hypertensive heart disease[ICD10: I11.9] Diagnosis: Major depression, recurrent[ICD10: F33.9] Diagnosis: Hypothyroid[ICD10: E03.9] Diagnosis: Obstructive sleep apnea (adult) (pediatric)[ICD10: G47.33] Diagnosis: Adult BMI 50.0-59.9 kg/sq m[ICD10: Z68.43] Diagnosis: Influenza vaccine refused[ICD10: Z28.21]Anna Bk [address] [place] [address] 99058EZK-6: 80160 06/23/2022 Plan of Care Planned Activity Notes Codes Status Date Visit Plan: I10 Essential (prima ry) hypertension, BP stable, will continue lisinopril, HCTZ 07/02/20 Echo: EF 60%, mild conc. LVH 05/14/20 EKG: NSR 05/14/20 Noct. Pulse Ox.: 7 min. < 89% SpO2 continue with [facility] Josh Simon MD will check labs this visit G47.33 Obstructive sleep apnea (adult), J45.909 Asthma breathing stable CPAP use continues-was changed to nasal pillow mask at last pulmonogy visit, patient feels this has been helpful continue utilization of Symbicort, albuterol via neb. or MDI q 4 hrs. prn dyspnea, continue with [employer] Jose BOWMAN last visit 05/31/2022-visit note reviewed E11.42 Type 2 diabetes mellitus with peripheral neuropathy, Z68.43 Adult BMI 50.0-59.9 kg/sq m stable glucose monitor range 103-156 - testing bid continue Ozempic 1mg per week and gabapentin 1/31/22 HgbA1C 5.6, GFR >100 continue with Kerrie Pandya OD at [facility] (06/30/21) discussed apps on her phone that can assist with tracking caloric intake and calories out discussedlimiting simple carbs, benefits of eating a small meal when first waking up Discussed benefits of weight loss clinic-patient agreeable referral sent will check labs this visit E03.9 Hypothyroidism continue levothyroxine 11/02/21 TSH wnl F33.9-296.30 Major depression, recurrent continue taking sertraline, buspirone Seroquel complete and has been replaced with Rexulti continue with [facility] in [place] Z28.21-V64.06 Influenza vaccine refused refused influenza vaccine, discussed benefits, remains resistant, immunization record updated Below historical items not addressed this visit: Z00.00-V70.9 (Z00.00-V70.9) Encounterfor general adult medical examination without abnormal findings 02/11/22 AWV complete E78.2 Hyperlipidemia, mixed atorvastatin was d/c'd due to elevated LFTs- however based on further info, pt had been taking a diet supplement known in increase liver enzymes 11/02/21 LDL 181, triglyc. 193 patient hasre-started atorvastatin per prior visit recommendations continue Mediterranean style eating E55.9 Vitamin D deficiency begin cholecalciferol 11/02/21 [...] 5 times per day continue with Urologist 06/23/2022atient Education: Weight QzhrAdjcybuab50/21/2022atient Education: DgwofucqPepusfiyu81/21/2022ati Education: Patient Medication Summary Dvdgxmrqn88/21/2022 Education: HmfsibuxswbgQzrkesgnw74/21/2022 Appointment: Chivo Bishop WPtel: [address] [place] [address] [id number]: Chivo Bishop WPtel: [address] [place] [address] [id number]: Mikey Nair WPtel: [address] [facility] [id number]: Chivo Bishop WPtel: [address] [place] [address] [id number]: Chivo Bishop WPtel: [address] [place] [address] [id number]: Chivo Bishop WPtel: [address] [place] [address] USETV111/11/2020ppointment: Chivo Bishop WPtel: [address] [place] [address] USETV110/13/2020ppointment: Chivo Bishop WPtel: [address] [place] [address] USETV1ppointment: Chivo Bishop WPtel: [address] [place] [address] IUEESB0406/10/2021ppointment: Anna Culver WPtel: [address] [facility] [address] [place] [address] USETV06/02/2021ppointment: Chivo Bishop WPtel: [address] [place] [address] [place] [address] USETV05/20/2021ppointment: Anna Culver WPtel: [phone] [place] [address] [place] [address] USETV04/28/2021ppointment: Chivo Bishop WPtel: [address] [place] [address] [place] [address] USETV04/15/2021ppointment: Anna Culver WPtel: [address] [place] [address] [id number]: Anna Culver WPtel: [address] [place] [address] USETV03/24/2021ppointment: Anna Culver WPtel: [phone] [place] [address] [place] [address] USET03/13/2021ppointment: Anna Culver WPtel: [address] [place] [address] [place] [address] [id number]: Chivo Bishop WPtel: [address] [place] [address] [place] [address] [id number]: Anna Culver WPtel: [phone] [place] [address] [place] [address] USETV01/13/2021ppointment: Anna Culver WPtel: [address] [place] [address] [place] [address] [id number]: Chivo Bishop WPtel: [phone] [place] [address] [place] [address] USETV11/28/2020ppointment: Anna Culver WPtel: [phone] [place] [address] USETV11/24/2020ppointment: Anna Culver WPtel: [phone] [place] [address] [id number]: Anna Culver WPtel: [phone] [place] [address] [id number]/25/2019Appointment: Anna Culver WPtel: [phone] [place] [address] USETV110/26/2019Appointment: Anna Culver WPtel: [phone] [place] [address] USETV110/19/2019Appointment: Anna Culver WPtel: [address] [place] [address] USETV1Appointment: Anna Culver WPtel: [phone] [place] [address] USETV1Appointment: Gianna Birmingham MCt: [address] [facility] [address] [id number]: Anna Culver WPtel: [phone] [place] [address] [id number]: Anna Culver WPtel: [phone] [place] [address] [id number]: Anna Culver WPtel: [phone] [place] [address] [id number]: Anna Culver WPtel: [address] [place] [address] [id number]: Anna Culver WPtel: [address] [place] [address] [id number]: Anna Culver WPtel: [phone] [place] [address] [id number]: Anna Culver WPtel: [phone] [place] [address] [id number]: Anna Culver WPtel: [address] [place] [address] [id number]: Anna Culver WPtel: [address] [place] [address] [id number]: Anna Culver WPtel: [address] [place] [address] [id number]: Sudha Hernadez WPtel: [address] [facility] [id number]: Sudha Hernadez WPtel: [address] [facility] [id number]: Charlene Oropeza WPtel: [address] [facility] [id number]: Enedelia Delgado45Appointment: Charlene Oropeza WPtel: [address] [facility] [id number]: Rasta Palafox WPtel: [address] [facility] [id number]: Rasta Palafox WPtel: [address] [facility] [address] [id number]: Rasta Palafox WPtel: [address] [facility] [address] [id number]: Rasta Palafox WPtel: [address] [facility] [address] [id number]: Pending Gynecology Referral InformationReferral ProcessedReferral: Pending Pulmonology Referral InformationReferralProcessed Referral: Pending Psychiatry Referral InformationReferralInitiatedReferral: Pending Respiratory Services Referral InformationReferralInitiatedReferral: Pending Ophthalmology Referral InformationReferralInitiatedReferral: [facility] WPtel: [address] [place] [address] USWriter placed a call out to the patient to notify her that it has been recommended that she be seenby a urologist. Patient agreed to be seen, does not have a provider of choice and no transportationissues. Community Education Specialist faxed referral and clinical notes to [facility] in [place], [place] near the patient's home. Patient to [...] seen and prefers a provider in the [place] or [place] area. Community Education Specialist placed a call out to everyone listed in the area and the only location that was able to accept the patient's insurance was [address] [phone] and spoke with Maylin. Maylin asked that the patient's referral, face sheet and visit notes be faxed to . Community Education Specialist faxed over requested documents. Patient appointment confirmation letter generated and mailed to her home address. Patient to call to schedule an appointment.ProcessedReferral: [facility] WPtel: [address] [facility] [address] [id number] USPatient notified that it has been advised that she be seen by Neurology. Patient agreed to be seen and prefers to be seen by a provider in the [place], [place] area. Patient denies any concerns with transportation, and prefers to schedule her own appointment. Community Education Specialist placed a call out to [facility] and spoke with Neeraj P: [...] Pending Podiatry Referral InformationReferralInitiated Instructions Comment Date will stratify as moderate ri sk rising and plan follow up visit in 4 weeks. Patient aware and agreeable with plan . I10 Essential (primary) hypertension, BP stable, will continue lisinopril, HCTZ; 07/02/20 Echo: EF 60%, mild conc. LVH; 05/14/20 EKG: NSR; 05/14/20 Noct. Pulse Ox.: 7 min. < 89% SpO2; [facility]; will check labs this visit G47.33 Obstructive sleep apnea (adult), J45.909 Asthma breathing stable CPAP use continues-was changed to nasal pillow mask at last pulmonogy visit, patient feels this hasbeen helpful continue utilization of Symbicort, albuterol via neb. or MDI q 4 hrs. prn dyspnea, continue with [employer] Jose BOWMAN; last visit 05/31/2022-visit note reviewed E11.42 Type 2 diabetes mellitus with peripheral neuropathy, Z68.43 Adult BMI 50.0-59.9 kg/sq m stable glucose monitor range 103-156 - testing bid; continue Ozempic 1mg per week and gabapentin; 11/02/21 HgbA1C 5.6, GFR >100; continue with Kerrie Pandya OD at [facility] (06/30/21); discussed apps on her phone that can assist with tracking caloric intake and calories out discussed limiting simple carbs, benefits of eating a small meal when first waking up Discussed benefits of weight loss clinic-patient agreeable referral sent will check labs this visit E03.9 Hypothyroidism continue levothyroxine; 11/02/21 TSH wnl; F33.9-296.30 Major depression, recurrent continue taking sertraline, buspirone; Seroquel complete and has been replaced with Rexulti continue with [facility] in [place]; Z28.21-V64.06 Influenza vaccine refused refused influenza vaccine, discussed benefits, remains resistant, immunization record updated Below historical items not addressed this visit: Z00.00-V70.9 (Z00.00-V70.9) Encounter for general adult medical examination without abnormal findings 02/11/22 AWV complete E78.2 Hyperlipidemia, mixed atorvastatin was d/c'd due to elevated LFTs- however based on further info, pt had been taking a diet supplement known in increase liver enzymes 11/02/21 LDL 181, triglyc. 193 patient has re-started atorvastatin per prior visit recommendations continue Mediterranean style eating; E55.9 Vitamin D deficiency begin cholecalciferol; 11/02/21 [...] 5 times per day; continue with Urologist; 06/23/2022 Medical Equipment No Medical Equipment data Advance Directives No Advance Directive data
--- OUTSIDE RECORDS SUMMARY | 2023-12-07 02:20 | XMS_ITS | CCD ---
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 Jalousies Installer Name Role Phone Palomo KING, Anna Primary Care Provider Unav ailable Unavailable Chronic Care Management Unavaila ble Summary Purpose DataExchange Insurance Providers Payer name Policy type / Coverage type Covered alliance party ID Effective Begin Date Effective End Date [facility] [employer] [facility] [id number] Unknown Unknown Family history Mother Diagnosis Age [...] 05/31/2018 Education level Unknown Some High School 10th05/31/20186234JxktyilugmFqnukpsEgynjvfxsa70/29/2018Tobacco historySNOMED CT: 777880901Hpr never smoked or chewed mkmqxly8005/31/2018Alcohol historySNOMED CT: 607292450Gcoyh drinks xbkkfza6105/31/2018Has the patient ever used illegal drugs? UnknownHas never used illegal drugs05/31/2018DNR Order/ Advanced Directive UnknownFull Code05/31/2018 Allergies, Adverse Reactions, Alerts Substance Reaction Codes Entered Date Inactivated Date Status OxyContin itch, RxNorm: 172155 01/13/2021 No Inactive Da te Active *No known food allergies Vekqety7809/06/2018No Inactive DateActiveMethylprednisolonehivesRxNorm: 6902 09/06/2018No Inactive DateActive Problems [...] examinationICD-10: Z01.810 ICD-9: V72.8106/InactiveHeadacheICD-10: R51 ICD-9: 784.001/10/2018InactiveOther care home (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ICD-10: Z79.899 ICD-9: V58.6907/InactiveType [...] Fill Instructions lisinopril 2.5 mg tablet RxNorm: 714110 Take 1 Tablet(s) Oral every day 022 2022 Inactive hydrochlorothiazide 25 mg tablet RxNorm: 885744 Take 1 Tablet(s) Oral every day 022 2021 Inactive Ozempic 1 mg/dose (4 mg/3 mL) subcutaneous pen injector RxNorm: 9862562 Take 1 Unit Dose Subcutaneous QWeek 022 2021 Inactive famotidine 20 mg tablet RxNorm: 151716 Take 1 Tablet(s) Oral every morning 2021 Inactive levothyroxine 50 mcg tablet RxNorm: 520471 Take 1 Tablet(s) Oral every day 022 2021 Inactive atorvastatin 20 mg tablet RxNorm: 325324 Take 1 Tablet(s) Oral every night at bedtime 022 2021 Inactive Cleocin T 1 % lotion RxNorm: 850320 Take 2 Gram(s) Topical every day 022 2021 Inactive Cleocin T 1 % lotion RxNorm: 534839 Take 2 Gram(s) Topical every day 022 2021 Inactive Ozempic 1 mg/dose (4 mg/3 mL) subcutaneous pen injector RxNorm: 8649429 Take 1 Unit Dose Subcutaneous QWeek 022 2021 Inactive Ozempic 0.25 mg or 0.5 mg (2 mg/1.5 mL) subcutaneous pen injector RxNorm: 6719500 INJECT 0.5 MGS SUBCUTANEOUSLY EVERY WEEK 2021 Inactive omeprazole 20 mg capsule,delayed release RxNorm: 579347 Take 1 Capsule(s) Oral every evening 2021 Inactive levothyroxine 50 mcg tablet RxNorm: 098712 Take 1 Tablet(s) Oral every day 022 2021 Inactive atorvastatin 20 mg tablet RxNorm: 241110 Take 1 Tablet(s) Oral every night at bedtime 2021 Inactive This refill negates all other refills of this medication lisinopril 2.5 mg tablet RxNorm: 751027 Take 1 Tablet(s) Oral every day 022 2021 Inactive gabapentin 300 mg capsule RxNorm: 178102 Take 1 Capsule(s) Oral three times a day 022 2021 Inactive montelukast 10 mg tablet RxNorm: 484426 Take 1 Tablet(s) Oral every day 022 2021 Inactive cholecalciferol (vitamin D3) 50 mcg (2,000 unit) tablet RxNorm: 092038 Take 1 Tablet(s) Oral every day 022 2022 Inactive Myrbetriq 50 mg tablet,extended release RxNorm: 4361873 1 Tablet(s) Oral every day No Stop Date Active Ozempic 0.25 mg or 0.5 mg (2 mg/1.5 mL) subcutaneous pen injector RxNorm: 0213746 inject 0.5 milligrams subcutaneously every week 2021 Inactive Ozempic 0.25 mg or 0.5 mg (2 mg/1.5 mL) subcutaneous pen injector RxNorm: 4772694 Take 0.5 Capsule(s) Injection once a week 2021 Inactive omeprazole 20 mg capsule,delayed release RxNorm: 261383 Take 1 Capsule(s) Oral every evening 2020 Inactive Ozempic 0.25 mg or 0.5 mg (2 mg/1.5 mL) subcutaneous pen injector RxNorm: 8772527 Take 0.25 Milligram(s) Subcutaneous once a week 2021 Inactive Easy Touch Alcohol Prep Pads RxNorm: 041679 USE DIRECTED EACH MORNING 2021 Inactive Probiotic 10 billion cell capsule RxNorm: 3572958 Take 1 Capsule(s) Oral every day 2021 Inactive levothyroxine 50 mcg tablet RxNorm: 547643 Take 1 Tablet(s) Oral every day 2020 Inactive Acid Hearing Impaired Itinerant Teacher (famotidine) 20 mg tablet RxNorm: 280559 Take 1 Tablet(s) Oral every morning 2020 Inactive Heartburn Relief (famotidine) 10 mg tablet RxNorm: 082866 Take 1 Tablet(s) Oral QAM 2020 Inactive levothyroxine 50 mcg tablet RxNorm: 473900 Take 1 Tablet(s) Oral QD 2020 Inactive Singulair 10 mg tablet RxNorm: 607750 TAKE (1) TABLET BY MOUTH DAILY 2020 Inactive metformin 1,000 mg tablet RxNorm: 253402 1 Tablet(s) Oral two times a day 021 2021 Inactive lisinopril 2.5 mg tablet RxNorm: 585126 Take 1 Tablet(s) Oral every day 021 2020 Inactive hydrochlorothiazide 25 mg tablet RxNorm: 066319 Take 1 Tablet(s) Oral every day 021 2020 Inactive ondansetron 4 mg disintegrating tablet RxNorm: 264934 1 Tablet(s) Oral two times a day 021 2020 Inactive Sudafed 12 Hour 120 mg tablet,extended release RxNorm: 6700039 TAKE 1 TABLET BY MOUTH EVERY 12 HOURS NEEDED 2021 Inactive Heartburn Relief (famotidine) 10 mg tablet RxNorm: 073636 Take 1 Tablet(s) Oral every morning 021 2020 Inactive omeprazole 20 mg capsule,delayed release RxNorm: 201031 1 Capsule(s) Oral every evening 021 2020 Inactive sertraline 100 mg tablet RxNorm: 734776 2 Tablet(s) Oral every day 021 2020 Inactive levothyroxine 50 mcg tablet RxNorm: 008825 TAKE (1) TABLET BY MOUTH DAILY 021 2020 Inactive metformin 500 mg tablet RxNorm: 809780 1 Tablet(s) Oral two times a day take with 500mg to equal 1000mg 021 2020 Inactive gabapentin 300 mg capsule RxNorm: 127629 TAKE 1 CAPSULE BY MOUTH THREE TIMES A DAY 021 2020 Inactive lisinopril 2.5 mg tablet RxNorm: 390949 TAKE 1 TABLET BY MOUTH DAILY 021 2020 Inactive gabapentin 300 mg capsule RxNorm: 993956 TAKE 1 CAPSULE BY MOUTH THREE TIMES A DAY 021 2020 Inactive Singulair 10 mg tablet RxNorm: 641183 TAKE (1) TABLET BY MOUTH DAILY 021 2020 Inactive metformin 1,000 mg tablet RxNorm: 161533 1 Tablet(s) Oral two times a day 021 2020 Inactive atorvastatin 40 mg tablet RxNorm: 217212 1 Tablet(s) Oral every day 021 2020 Inactive omeprazole 20 mg capsule,delayed release RxNorm: 430516 1 Capsule(s) Oral every evening 021 2020 Inactive famotidine 10 mg tablet RxNorm: 685298 1 Tablet(s) Oral every morning 021 2020 Inactive Alcohol Prep Pads RxNorm: 778778 USE EACH MORNING 021 2020 Inactive omeprazole 20 mg capsule,delayed release RxNorm: 170363 1 Capsule(s) Oral two times a day 2021 Inactive omeprazole 20 mg capsule,delayed release RxNorm: 641703 TAKE 1 CAPSULE BY MOUTH EVERY DAY 2021 Inactive Macrobid 100 mg capsule RxNorm: 556694 1 Capsule(s) Oral every 12 hours with food 2020 Inactive omeprazole 20 mg capsule,delayed release RxNorm: 621859 1 Capsule(s) Oral two times a day 2021 Inactive metformin 1,000 mg tablet RxNorm: 436420 1 Tablet(s) Oral two times a day 2020 Inactive start on September 11, 2020 metformin 500 mg tablet RxNorm: 675813 1 Tablet(s) Oral two times a day take with 500mg to equal 1000mg 2019 Inactive gabapentin 300 mg capsule RxNorm: 865160 TAKE 1 CAPSULE BY MOUTH THREE TIMES DAILY 2020 Inactive cetirizine 10 mg tablet RxNorm: 8040540 TAKE (1) TABLET BY MOUTH DAILY 2020 Inactive metformin 500 mg tablet RxNorm: 203280 1 Tablet(s) Oral two times a day 2019 Inactive loperamide 2 mg tablet RxNorm: 379757 1 Tablet(s) Oral as needed take one tablet after each loose stool, maximum of 8 tablets in 24 hours 020 2021 Inactive Sudafed 12 Hour 120 mg tablet,extended release RxNorm: 1199262 TAKE 1 TABLET BY MOUTH EVERY 12 HOURS NEEDED 020 2019 Inactive hydrochlorothiazide 25 mg tablet RxNorm: 957452 TAKE (1) TABLET BY MOUTH EVERY DAY 020 2019 Inactive omeprazole 20 mg capsule,delayed release RxNorm: 868185 TAKE 1 CAPSULE BY MOUTH EVERY DAY 020 2020 Inactive metformin 500 mg tablet RxNorm: 558822 1 Tablet(s) Oral every day 020 2019 Inactive True Metrix Glucose Test Strip RxNorm: 1 Test Strips Miscellaneous two times a day as needed No Stop Date Active metformin 500 mg tablet RxNorm: 955347 1 Tablet(s) Oral every day 020 2019 Inactive diclofenac sodium 75 mg tablet,delayed release RxNorm: 809239 1 Tablet(s) PO BID 020 2021 Inactive This refill negates all other refills of this medication Sudafed 12 Hour 120 mg tablet,extended release RxNorm: 2182807 TAKE 1 TABLET BY MOUTH EVERY 12 HOURS NEEDED 020 2019 Inactive True Metrix Glucose Test Strip RxNorm: 1 Test Strips Miscellaneous every morning 020 2019 Inactive 100/container True Metrix Glucose Test Strip RxNorm: 1 Test Strips Miscellaneous QAM 020 2019 Inactive 100/container loperamide 2 mg tablet RxNorm: 814284 1 Tablet(s) Oral as needed take one tablet after each loose stool, maximum of 8 tablets in 24 hours 020 2019 Inactive cetirizine 10 mg tablet RxNorm: 7195982 1 Tablet(s) PO daily 020 2019 Inactive loperamide 2 mg tablet RxNorm: 345008 1 Tablet(s) Oral as needed take one tablet after each loose stool, maximum of 8 tablets in 24 hours 2019 Inactive quetiapine 100 mg tablet RxNorm: 619645 1 Tablet(s) Oral every night at bedtime 2019 Inactive levothyroxine 50 mcg tablet RxNorm: 728516 1 Tablet(s) PO daily 2020 Inactive gabapentin 300 mg capsule RxNorm: 936522 1 Capsule(s) PO TID 2019 Inactive levothyroxine 50 mcg tablet RxNorm: 675726 1 Tablet(s) PO daily 2019 Inactive lisinopril 2.5 mg tablet RxNorm: 257324 1 Tablet(s) PO daily 2020 Inactive gabapentin 300 mg capsule RxNorm: 974128 1 Capsule(s) PO TID 2019 Inactive cetirizine 10 mg tablet RxNorm: 6674186 1 Tablet(s) PO daily 2019 Inactive Singulair 10 mg tablet RxNorm: 614796 1 Tablet(s) PO daily 2020 Inactive gentamicin 0.3 % eye drops RxNorm: 816228 1 Drop(s) ophthalmic (eye) four times a day 2019 Inactive gentamicin 0.3 % eye drops RxNorm: 992778 1 Drop(s) ophthalmic (eye) four times a day 2019 Inactive gentamicin 0.3 % eye drops RxNorm: 254446 1 Drop(s) ophthalmic (eye) four times a day 2019 Inactive hydrochlorothiazide 25 mg tablet RxNorm: 200811 1 Tablet(s) Oral every day 2019 Inactive Sudafed 12 Hour 120 mg tablet,extended release RxNorm: 6317036 TAKE (1) TABLET BY MOUTH EVERY 12 HOURS NEEDED 2019 Inactive loperamide 2 mg tablet RxNorm: 566144 1 Tablet(s) Oral as needed take one tablet after each loose stool, maximum of 8 tablets in 24 hours 020 2019 Inactive loperamide 2 mg tablet RxNorm: 115870 1 Tablet(s) Oral as needed take one tablet after each loose stool, maximum of 8 tablets in 24 hours 020 2019 Inactive atorvastatin 40 mg tablet RxNorm: 933087 1 Tablet(s) Oral every day 2020 Inactive quetiapine 100 mg tablet RxNorm: 363137 1 Tablet(s) Oral every night at bedtime 2019 Inactive sertraline 100 mg tablet RxNorm: 833651 1 Tablet(s) Oral 2019 Inactive omeprazole 20 mg capsule,delayed release RxNorm: 772959 1 Capsule(s) Oral every day 2019 Inactive amoxicillin 250 mg capsule RxNorm: 756882 1 Capsule(s) Oral three times a day 2019 Inactive multivitamin with iron-mineral tablet RxNorm: 1 Tablet(s) Oral every day 2021 Inactive cetirizine 10 mg tablet RxNorm: 6647936 1 Tablet(s) PO daily 2019 Inactive This refill negates all other refills of this medication. Please do not auto refill Singulair 10 mg tablet RxNorm: 013302 1 Tablet(s) PO daily 2019 Inactive This refill negates all other refills of this medication gabapentin 300 mg capsule RxNorm: 341786 1 Capsule(s) PO TID 2019 Inactive lisinopril 2.5 mg tablet RxNorm: 511803 1 Tablet(s) PO daily 2019 Inactive levothyroxine 50 mcg tablet RxNorm: 615169 1 Tablet(s) PO daily 2019 Inactive This refill negates all other refills of this medication hydrochlorothiazide 25 mg tablet RxNorm: 560819 1 Tablet(s) Oral every day 2019 Inactive fenugreek seed extract 500 mg capsule RxNorm: 1 Capsule(s) Oral three times a day 2021 Inactive Alcohol Prep Pads RxNorm: 644186 1 Patch TOP QAM 020 2020 Inactive loperamide 2 mg tablet RxNorm: 321465 1 Tablet(s) Oral as needed take one [...] 2019 Inactive hydrochlorothiazide 25 mg tablet RxNorm: 173951 1 Tablet(s) Oral every day 2019 Inactive Sudafed 12 Hour 120 mg tablet,extended release RxNorm: 5244885 1 Tablet(s) Oral every 12 hours as needed 2018 Inactive omeprazole 20 mg capsule,delayed release RxNorm: 157413 1 Capsule(s) Oral every day 2019 Inactive Sudafed 12 Hour 120 mg tablet,extended release RxNorm: 3012141 1 Tablet(s) Oral every 12 hours as needed 2018 Inactive pantoprazole 40 mg tablet,delayed release RxNorm: 263879 1 Tablet(s) Oral every day 2018 Inactive discontinue any other H2Blkr. and PPI albuterol sulfate 2.5 mg/3 mL (0.083 %) solution for nebulization RxNorm: 017749 1 Vial Inhalation every four hours as needed as needed for dyspnea 2020 Inactive 60/box. This refill negates all other refills of this medication. Please do not fill early. Please do not auto refill. Symbicort 160 mcg-4.5 mcg/actuation HFA aerosol inhaler RxNorm: 4540186 2 Puff(s) INH BID No Stop Date Active Alcohol Prep Pads RxNorm: 212772 1 Patch TOP QAM 019 2019 Inactive Ventolin HFA 90 mcg/actuation aerosol inhaler RxNorm: 848595 2 Puff(s) INH QID 019 2019 Inactive Please do not fill early. Please do not auto refill. This refill negates all other refills of this medication True Metrix Glucose Test Strip RxNorm: 1 Test Strips Miscellaneous QAM 019 2019 Inactive 100/container atorvastatin 40 mg tablet RxNorm: 130747 1 Tablet(s) Oral every day 019 2019 Inactive buspirone 7.5 mg tablet RxNorm: 665567 1 Tablet(s) PO BID 019 2020 Inactive This refill negates all other refills of this medication hydrochlorothiazide 12.5 mg tablet RxNorm: 191729 1 Tablet(s) PO QAM 019 2019 Inactive levmetamfetamine 50 mg nasal inhaler RxNorm: 1 Unit(s) NASAL Q3-4H Do not use more than every 3 hours or 8 times/24hours 019 2021 Inactive Please do not auto refill. This refill negates all other refills of this medication Ventolin HFA 90 mcg/actuation aerosol inhaler RxNorm: 309131 2 Puff(s) INH QID 019 2018 Inactive Please do not fill early. Please do not auto refill. This refill negates all other refills of this medication Singulair 10 mg tablet RxNorm: 717927 1 Tablet(s) PO daily 019 2019 Inactive This refill negates all other refills of this medication cetirizine 10 mg tablet RxNorm: 1117743 1 Tablet(s) PO daily 019 2019 Inactive This refill negates all other refills of this medication. Please do not auto refill levothyroxine 50 mcg tablet RxNorm: 276976 1 Tablet(s) PO daily 019 2019 Inactive This refill negates all other refills of this medication diclofenac sodium 75 mg tablet,delayed release RxNorm: 189414 1 Tablet(s) PO BID 019 2019 Inactive This refill negates all other refills of this medication ranitidine 150 mg tablet RxNorm: 672034 1 Tablet(s) PO BID 019 2018 Inactive This refill negates all other refills of this medication Calcium 600-D3 Plus (mag-zinc) 600 mg calcium-800 unit-50 mg tablet RxNorm: 1 Tablet(s) PO daily take an additonal tablet for itching. 2018 Inactive This refill negates all other refills of this medication albuterol sulfate 2.5 mg/3 mL (0.083 %) solution for nebulization RxNorm: 419488 1 Vial INH QID 2018 Inactive 60/box. This refill negates all other refills of this medication. Please do not fill early. Please do not auto refill. lisinopril 2.5 mg tablet RxNorm: 982268 1 Tablet(s) PO daily 019 2019 Inactive gabapentin 300 mg capsule RxNorm: 014027 1 Capsule(s) PO TID 019 2019 Inactive atorvastatin 20 mg tablet RxNorm: 529022 1 Tablet(s) PO QHS 2018 Inactive This refill negates all other refills of this medication TRUEplus Lancets 30 gauge RxNorm: 1 Lancets Miscellaneous QAM 019 2018 Inactive 100/box gabapentin 300 mg capsule RxNorm: 995325 1 Capsule(s) PO TID 019 2018 Inactive Flintstones Complete (iron) 18 mg iron chewable tablet RxNorm: 1 Tablet(s) PO daily 019 2021 Inactive This refill negates all other refills of this medication gabapentin 300 mg capsule RxNorm: 264480 1 Capsule(s) PO TID as needed 2018 Inactive True Metrix Glucose Test Strip RxNorm: 1 Test Strips Miscellaneous QA 2018 Inactive 100/container Alcohol Prep Pads RxNorm: 810412 1 Patch TOP QAM 019 2018 Inactive TRUEplus Lancets 30 gauge RxNorm: 1 Lancets Miscellaneous QAM 019 2018 Inactive 100/box lisinopril 2.5 mg tablet RxNorm: 303299 1 Tablet(s) PO daily 019 2018 Inactive ranitidine 150 mg tablet RxNorm: 250690 1 Tablet(s) PO BID 019 2018 Inactive This refill negates all other refills of this medication albuterol sulfate 2.5 mg/3 mL (0.083 %) solution for nebulization RxNorm: 345480 1 Vial INH QID 019 2018 Inactive [...] this medication gabapentin 300 mg capsule RxNorm: 606101 1 Capsule(s) PO TID as needed 019 2018 Inactive atorvastatin 20 mg tablet RxNorm: 083397 1 Tablet(s) PO QHS 019 2018 Inactive This refill negates all other refills of this medication trazodone 50 mg tablet RxNorm: 717011 1 Tablet(s) PO QHS 019 2018 Inactive This refill negates all other refills of this medication Ventolin HFA 90 mcg/actuation aerosol inhaler RxNorm: 905089 2 Puff(s) INH QID 019 2018 Inactive Please do not fill early. Please do not auto refill. This refill negates all other refills of this medication Calcium 600-D3 Plus 600 mg calcium-800 unit-50 mg tablet RxNorm: 1 Tablet(s) PO daily take an additonal tablet for itching. 019 2018 Inactive This refill negates all other refills of this medication Singulair 10 mg tablet RxNorm: 085299 1 Tablet(s) PO daily 019 2018 Inactive This refill negates all other refills of this medication buspirone 7.5 mg tablet RxNorm: 364543 1 Tablet(s) PO BID 019 2018 Inactive This refill negates all other refills of this medication diclofenac sodium 75 mg tablet,delayed release RxNorm: 783497 1 Tablet(s) PO BID 019 2018 Inactive This refill negates all other refills of this medication hydrochlorothiazide 12.5 mg tablet RxNorm: 719519 1 Tablet(s) PO QAM 019 2018 Inactive metoprolol succinate ER 50 mg tablet,extended release 24 hr RxNorm: 402379 1 Tablet(s) PO daily 019 2018 Inactive This refill negates all other refills of this medication levothyroxine 50 mcg tablet RxNorm: 692514 1 Tablet(s) PO daily 019 2018 Inactive This refill negates all other refills of this medication cetirizine 10 mg tablet RxNorm: 0120911 1 Tablet(s) PO daily 019 2018 Inactive This refill negates all other refills of this medication. Please do not auto refill Flintstones Complete (iron) 18 mg iron chewable tablet RxNorm: 1 Tablet(s) PO daily 019 2018 Inactive This refill negates all other refills of this medication buspirone 7.5 mg tablet RxNorm: 484130 1 Tablet(s) PO BID 2018 Inactive cetirizine 10 mg tablet RxNorm: 9156046 1 Tablet(s) PO daily 2018 Inactive Guaiasorb DM 10 mg-100 mg/5 mL oral liquid RxNorm: 370313 10 Milliliter(s) PO As needed every 4 hr 2018 Inactive Vicks Vaporub 4.7 %-1.2 %-2.6 % topical ointment RxNorm: 2284092 1 Application TOP TID 2018 Inactive levmetamfetamine 50 mg nasal inhaler RxNorm: 1 Unit(s) NASAL Q3-4H 2017 Inactive sertraline 50 mg tablet RxNorm: 084982 1 Tablet(s) PO daily 2018 Inactive Please note dose trazodone 50 mg tablet RxNorm: 780715 1 Tablet(s) PO QHS 2018 Inactive sertraline 50 mg tablet RxNorm: 017416 1 Tablet(s) PO daily 2017 Inactive amoxicillin 500 mg tablet RxNorm: 170200 1 Tablet(s) PO Q12H 2017 Inactive albuterol sulfate 2.5 mg/3 mL (0.083 %) solution for nebulization RxNorm: 874113 1 Vial INH QID 2018 Inactive 60/box. Please do not fill early. Please do not auto refill. Prozac 10 mg capsule RxNorm: 980435 1 Capsule(s) PO daily 2017 Inactive buspirone 7.5 mg tablet RxNorm: 631852 1 Tablet(s) PO BID 2018 Inactive gabapentin 300 mg capsule RxNorm: 624451 1 Capsule(s) PO TID as needed 2018 Inactive hydrochlorothiazide 12.5 mg tablet RxNorm: 137655 1 Tablet(s) PO QAM 018 2018 Inactive ranitidine 150 mg tablet RxNorm: 453992 1 Tablet(s) PO BID 018 2018 Inactive Macrobid 100 mg capsule RxNorm: 638973 1 Capsule(s) PO Q12H 018 2017 Inactive Singulair 10 mg tablet RxNorm: 515354 1 Tablet(s) PO daily 018 2018 Inactive Ventolin HFA 90 mcg/actuation aerosol inhaler RxNorm: 9767353 2 Puff(s) INH QID 018 2018 Inactive Singulair 10 mg tablet RxNorm: 440938 1 Tablet(s) PO daily 018 2017 Inactive buspirone 7.5 mg tablet RxNorm: 750954 1 Tablet(s) PO BID 018 2017 Inactive Prozac 10 mg capsule RxNorm: 679244 1 Capsule(s) PO daily 018 2017 Inactive diclofenac sodium 75 mg tablet,delayed release RxNorm: 749476 1 Tablet(s) PO BID 018 2017 Inactive lisinopril 2.5 mg tablet RxNorm: 684014 1 Tablet(s) PO daily 018 2017 Inactive Neilmed Pediatric Sinus Rinse Refill packet RxNorm: 1 Unit Dose NASAL PRN 018 2021 Inactive metoprolol succinate ER 50 mg tablet,extended release 24 hr RxNorm: 058329 1 Tablet(s) PO daily 018 2017 Inactive levothyroxine 50 mcg tablet RxNorm: 008001 1 Tablet(s) PO daily 018 2017 Inactive TRUEplus Lancets 30 gauge RxNorm: 1 Lancets Miscellaneous QAM 018 2017 Inactive 100/box Ventolin HFA 90 mcg/actuation aerosol inhaler RxNorm: 365847 2 Puff(s) INH QID 018 2017 Inactive Aleve 220 mg capsule RxNorm: 9914461 1 Capsule(s) PO BID 018 2018 Inactive ranitidine 150 mg tablet RxNorm: 719103 1 Tablet(s) PO BID 018 2017 Inactive gabapentin 300 mg capsule RxNorm: 636949 1 Capsule(s) PO TID as needed 018 2017 Inactive atorvastatin 20 mg tablet RxNorm: 038351 1 Tablet(s) PO QHS 018 2017 Inactive True Metrix Glucose Test Strip RxNorm: 1 Test Strips Miscellaneous QAM 018 2017 Inactive 50/container Calcium 600-D3 Plus 600 mg calcium-800 unit-50 mg tablet RxNorm: 1 Tablet(s) PO daily take an additonal tablet for itching. 018 2017 Inactive hydrochlorothiazide 12.5 mg tablet RxNorm: 522075 1 Tablet(s) PO QAM 018 2017 Inactive Flintstones Complete (iron) 18 mg iron chewable tablet RxNorm: 1 Tablet(s) PO daily 018 2017 Inactive True Metrix Glucose Meter RxNorm: miscellaneous 019 2018 Inactive sertraline 50 mg tablet RxNorm: 472788 1 Tablet(s) PO daily 020 2019 Inactive loperamide 2 mg tablet RxNorm: 914483 oral 019 2018 Inactive d-mannose oral powder RxNorm: PO 018 2021 Inactive Symbicort 160 mcg-4.5 mcg/actuation HFA aerosol inhaler RxNorm: 0898522 2 Puff(s) INH BID 019 2018 Inactive Medication Administered No Medication Administered data Procedures Procedure Codes Date Hilliard Fany Assessment CPT-4: DSWA 04/02 Patient Health [...] Risk Assessment [facility] CT: 79142889 4 CPT-4: DFRA01/13/2021emmes Fany AssessmentCPT-4: DSWA12/17/2020Urinalysis, dip stickCPT-4: 740009809/24/2020Patient Health QuestionnaireCPT-4: DPHQ 08/19/2020ElectrocardiogramCPT-4: 820390005/14/2020Tobacco Assessment/Screening CPT-4: TCA01/01/2020[facility]: 137133018 CPT-4: DFRA01/01/2020Functional AssessmentCPT-4: DFA01/01/2020Semmes Fany AssessmentCPT-4: DSWA11/28/2019Patient Health QuestionnaireCPT-4: DPHQ11/28/2019 Hilliard Fany AssessmentCPT-4: DSWA10/17/2019HypertensionCPT-4: HTN10/17/2019 [address]: 672679038 CPT-4: DFRA09/19/2019Functional AssessmentCPT-4: DFA111/20/2018Urinalysis, dip stickCPT-4: 0425578Tobacco Assessment/ScreeningCPT-4: TCA05/24/2019 Patient Health QuestionnaireCPT-4: DPHQ05/24/2019AHA/REBECCA Classification AssessmentCPT-4: DAHA04/25/2019Controlled Substance ReportCPT-4: CTRSU04/25/2019 Urinalysis, dip stickCPT-4: 4000520Urinalysis, dip stickCPT-4: 08406 03/28/20192892J6P-CreqvxfvjmfdidwJCR-3: 87436NxxgompV6C-IofmslxlkpkvcxnONO-8: 52692 SwrrvpsQ2G-OdrubvsyacwkdiiEWL-2: 22160MojdragX5L-ZtuhntkjlmbcvvuYVX-1: 81988 QioszmtD5O-LswwdoaffnugqytCDK-0: 42860PrpgjkzU8D-QfqqabvcesdfzwaQQU-5: 20659 BfdmigfL0M-CwvpjtdqltcnqrfSVA-9: 97117VlbcixiZ3Q-KnyvvpsdtrcdcdxNCW-2: 10179 IzjymmyM9E-SqrmdkvmbaxiwnxQAV-0: 87165FqcgihjHvoheniain ReferralSNOMETHOD[facility] CT: 344196941 CPT-4: J77Ccdjyrj Reason For Visit No Reason For Visit data Plan of Care Planned Activity Notes Codes Status Date Referral: Pending Gynecology Referral Informatio n Referral ProcessedReferral: Pending Pulmonology Referral InformationReferralProcessed Referral: Pending Psychiatry Referral InformationReferralInitiatedReferral: Pending Respiratory Services Referral InformationReferralInitiatedReferral: Pending Ophthalmology Referral InformationReferralInitiatedReferral: [facility] WPtel: [address] [place], [place] [id number] USWriter placed a call out to the patient to notify her that it has been recommended that she be seenby a urologist. Patient agreed to be seen, does not have a provider of choice and no transportationissues. Associate Designer faxed referral and clinical notes to [facility] in [place], [place] near the patient's home. Patient to [...] seen and prefers a provider in the [place] or [facility]. Associate Designer placed a call out to everyone listed in the area and the only location that was able to accept the patient's insurance was [place] [address] [place] [address] and spoke with Maylin. Maylin asked that the patient's referral, face sheet and visit notes be faxed to . Associate Designer faxed over requested documents. Patient appointment confirmation letter generated and mailed to her home address. Patient to call to schedule an appointment.ProcessedReferral: [facility] WPtel: [phone] [id number] USPatient notified that it has been advised that she be seen by Neurology. Patient agreed to be seen and prefers to be seen by a provider in the [place], [place] area. Patient denies any concerns with transportation, and prefers to schedule her own appointment. Associate Designer placed a call out to [facility] [...]
--- OUTSIDE RECORDS SUMMARY | 2023-12-07 02:20 | XMS_ITS | CCD ---
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 Name Role Phone Palomo KING, Anna Primary Care Provider Unav ailable Unavailable Chronic Care Management Unavaila ble Summary Purpose DataExchange Insurance Providers Payer name Policy type / Coverage type Covered republican ID Effective Begin Date Effective End Date [facility] [id number] Unknown Unknown Family history Mother Diagnosis Age [...] 05/31/2018 Education level Unknown Some High School 10th05/31/20187884IbjblktirzKwotbouAlavijdhnf73/29/2018Tobacco history[address]OMED CT: 219159901Eho never smoked or chewed lovzqij7105/31/2018Alcohol historySNOMED CT: 147911097Ebosv drinks wshnsrh9605/31/2018Has the patient ever used illegal drugs? UnknownHas never used illegal drugs05/31/2018DNR Order/ Advanced Directive UnknownFull Code05/31/2018 Allergies, Adverse Reactions, Alerts Substance Reaction Codes Entered Date Inactivated Date Status OxyContin itch, RxNorm: 710418 01/13/2021 No Inactive Da te Active *No known food allergies Vdddces8909/06/2018No Inactive DateActiveMethylprednisolonehivesRxNorm: 6902 09/06/2018No Inactive DateActive Problems [...] Fill Instructions lisinopril 2.5 mg tablet RxNorm: 549054 Take 1 Tablet(s) Oral every day 022 2021 Inactive lisinopril 2.5 mg tablet RxNorm: 517746 Take 1 Tablet(s) Oral every day 022 2022 Inactive hydrochlorothiazide 25 mg tablet RxNorm: 067672 Take 1 Tablet(s) Oral every day 022 2021 Inactive Ozempic 1 mg/dose (4 mg/3 mL) subcutaneous pen injector RxNorm: 1509112 Take 1 Unit Dose Subcutaneous QWeek 022 2021 Inactive famotidine 20 mg tablet RxNorm: 175769 Take 1 Tablet(s) Oral every morning 022 2021 Inactive levothyroxine 50 mcg tablet RxNorm: 811848 Take 1 Tablet(s) Oral every day 022 2021 Inactive atorvastatin 20 mg tablet RxNorm: 917816 Take 1 Tablet(s) Oral every night at bedtime 2021 Inactive Cleocin T 1 % lotion RxNorm: 618614 Take 2 Gram(s) Topical every day 022 2021 Inactive Cleocin T 1 % lotion RxNorm: 043062 Take 2 Gram(s) Topical every day 022 2021 Inactive Ozempic 1 mg/dose (4 mg/3 mL) subcutaneous pen injector RxNorm: 0105392 Take 1 Unit Dose Subcutaneous QWeek 022 2021 Inactive Ozempic 0.25 mg or 0.5 mg (2 mg/1.5 mL) subcutaneous pen injector RxNorm: 5367439 INJECT 0.5 MGS SUBCUTANEOUSLY EVERY WEEK 022 2021 Inactive omeprazole 20 mg capsule,delayed release RxNorm: 980774 Take 1 Capsule(s) Oral every evening 2021 Inactive levothyroxine 50 mcg tablet RxNorm: 162461 Take 1 Tablet(s) Oral every day 2021 Inactive atorvastatin 20 mg tablet RxNorm: 045386 Take 1 Tablet(s) Oral every night at bedtime 2021 Inactive This refill negates all other refills of this medication lisinopril 2.5 mg tablet RxNorm: 896458 Take 1 Tablet(s) Oral every day 2021 Inactive gabapentin 300 mg capsule RxNorm: 470825 Take 1 Capsule(s) Oral three times a day 022 2021 Inactive montelukast 10 mg tablet RxNorm: 909210 Take 1 Tablet(s) Oral every day 022 2021 Inactive cholecalciferol (vitamin D3) 50 mcg (2,000 unit) tablet RxNorm: 837881 Take 1 Tablet(s) Oral every day 2022 Inactive Myrbetriq 50 mg tablet,extended release RxNorm: 1981623 1 Tablet(s) Oral every day No Stop Date Active Ozempic 0.25 mg or 0.5 mg (2 mg/1.5 mL) subcutaneous pen injector RxNorm: 3384016 inject 0.5 milligrams subcutaneously every week 2021 Inactive Ozempic 0.25 mg or 0.5 mg (2 mg/1.5 mL) subcutaneous pen injector RxNorm: 4442699 Take 0.5 Capsule(s) Injection once a week 2021 Inactive omeprazole 20 mg capsule,delayed release RxNorm: 810308 Take 1 Capsule(s) Oral every evening 2020 Inactive Ozempic 0.25 mg or 0.5 mg (2 mg/1.5 mL) subcutaneous pen injector RxNorm: 1765351 Take 0.25 Milligram(s) Subcutaneous once a week 2021 Inactive Easy Touch Alcohol Prep Pads RxNorm: 135242 USE DIRECTED EACH MORNING 2021 Inactive Probiotic 10 billion cell capsule RxNorm: 3390354 Take 1 Capsule(s) Oral every day 2021 Inactive levothyroxine 50 mcg tablet RxNorm: 068719 Take 1 Tablet(s) Oral every day 2020 Inactive Acid Laboratory Engineer (famotidine) 20 mg tablet RxNorm: 182151 Take 1 Tablet(s) Oral every morning 2020 Inactive Heartburn Relief (famotidine) 10 mg tablet RxNorm: 515439 Take 1 Tablet(s) Oral QAM 2020 Inactive levothyroxine 50 mcg tablet RxNorm: 940250 Take 1 Tablet(s) Oral QD 2020 Inactive Singulair 10 mg tablet RxNorm: 055914 TAKE (1) TABLET BY MOUTH DAILY 021 2020 Inactive metformin 1,000 mg tablet RxNorm: 018517 1 Tablet(s) Oral two times a day 021 2021 Inactive lisinopril 2.5 mg tablet RxNorm: 873221 Take 1 Tablet(s) Oral every day 021 2020 Inactive hydrochlorothiazide 25 mg tablet RxNorm: 169887 Take 1 Tablet(s) Oral every day 021 2020 Inactive ondansetron 4 mg disintegrating tablet RxNorm: 829237 1 Tablet(s) Oral two times a day 021 2020 Inactive Sudafed 12 Hour 120 mg tablet,extended release RxNorm: 4318243 TAKE 1 TABLET BY MOUTH EVERY 12 HOURS NEEDED 2021 Inactive Heartburn Relief (famotidine) 10 mg tablet RxNorm: 579564 Take 1 Tablet(s) Oral every morning 021 2020 Inactive omeprazole 20 mg capsule,delayed release RxNorm: 917272 1 Capsule(s) Oral every evening 021 2020 Inactive sertraline 100 mg tablet RxNorm: 537955 2 Tablet(s) Oral every day 021 2020 Inactive levothyroxine 50 mcg tablet RxNorm: 821122 TAKE (1) TABLET BY MOUTH DAILY 021 2020 Inactive metformin 500 mg tablet RxNorm: 047903 1 Tablet(s) Oral two times a day take with 500mg to equal 1000mg 021 2020 Inactive gabapentin 300 mg capsule RxNorm: 057859 TAKE 1 CAPSULE BY MOUTH THREE TIMES A DAY 021 2020 Inactive lisinopril 2.5 mg tablet RxNorm: 251178 TAKE 1 TABLET BY MOUTH DAILY 021 2020 Inactive gabapentin 300 mg capsule RxNorm: 476326 TAKE 1 CAPSULE BY MOUTH THREE TIMES A DAY 021 2020 Inactive Singulair 10 mg tablet RxNorm: 035155 TAKE (1) TABLET BY MOUTH DAILY 021 2020 Inactive metformin 1,000 mg tablet RxNorm: 226296 1 Tablet(s) Oral two times a day 021 2020 Inactive atorvastatin 40 mg tablet RxNorm: 733420 1 Tablet(s) Oral every day 2020 Inactive omeprazole 20 mg capsule,delayed release RxNorm: 264937 1 Capsule(s) Oral every evening 021 2020 Inactive famotidine 10 mg tablet RxNorm: 923419 1 Tablet(s) Oral every morning 021 2020 Inactive Alcohol Prep Pads RxNorm: 688796 USE EACH MORNING 021 2020 Inactive omeprazole 20 mg capsule,delayed release RxNorm: 949976 1 Capsule(s) Oral two times a day 2021 Inactive omeprazole 20 mg capsule,delayed release RxNorm: 923886 TAKE 1 CAPSULE BY MOUTH EVERY DAY 2021 Inactive Macrobid 100 mg capsule RxNorm: 021951 1 Capsule(s) Oral every 12 hours with food 2020 Inactive omeprazole 20 mg capsule,delayed release RxNorm: 360212 1 Capsule(s) Oral two times a day 2021 Inactive metformin 1,000 mg tablet RxNorm: 510085 1 Tablet(s) Oral two times a day 2020 Inactive start on September 11, 2020 metformin 500 mg tablet RxNorm: 066351 1 Tablet(s) Oral two times a day take with 500mg to equal 1000mg 2019 Inactive gabapentin 300 mg capsule RxNorm: 602081 TAKE 1 CAPSULE BY MOUTH THREE TIMES DAILY 2020 Inactive cetirizine 10 mg tablet RxNorm: 6980758 TAKE (1) TABLET BY MOUTH DAILY 2020 Inactive metformin 500 mg tablet RxNorm: 861783 1 Tablet(s) Oral two times a day 020 2019 Inactive loperamide 2 mg tablet RxNorm: 196820 1 Tablet(s) Oral as needed take one tablet after each loose stool, maximum of 8 tablets in 24 hours 020 2021 Inactive Sudafed 12 Hour 120 mg tablet,extended release RxNorm: 0675950 TAKE 1 TABLET BY MOUTH EVERY 12 HOURS NEEDED 020 2019 Inactive hydrochlorothiazide 25 mg tablet RxNorm: 287182 TAKE (1) TABLET BY MOUTH EVERY DAY 020 2019 Inactive omeprazole 20 mg capsule,delayed release RxNorm: 128379 TAKE 1 CAPSULE BY MOUTH EVERY DAY 020 2020 Inactive metformin 500 mg tablet RxNorm: 836903 1 Tablet(s) Oral every day 020 2019 Inactive True Metrix Glucose Test Strip RxNorm: 1 Test Strips Miscellaneous two times a day as needed No Stop Date Active metformin 500 mg tablet RxNorm: 693556 1 Tablet(s) Oral every day 2019 Inactive diclofenac sodium 75 mg tablet,delayed release RxNorm: 656545 1 Tablet(s) PO BID 020 2021 Inactive This refill negates all other refills of this medication Sudafed 12 Hour 120 mg tablet,extended release RxNorm: 6195857 TAKE 1 TABLET BY MOUTH EVERY 12 HOURS NEEDED 020 2019 Inactive True Metrix Glucose Test Strip RxNorm: 1 Test Strips Miscellaneous every morning 020 2019 Inactive 100/container True Metrix Glucose Test Strip RxNorm: 1 Test Strips Miscellaneous QA 020 2019 Inactive 100/container loperamide 2 mg tablet RxNorm: 383527 1 Tablet(s) Oral as needed take one tablet after each loose stool, maximum of 8 tablets in 24 hours 020 2019 Inactive cetirizine 10 mg tablet RxNorm: 7255011 1 Tablet(s) PO daily 2019 Inactive loperamide 2 mg tablet RxNorm: 535421 1 Tablet(s) Oral as needed take one tablet after each loose stool, maximum of 8 tablets in 24 hours 2019 Inactive quetiapine 100 mg tablet RxNorm: 189686 1 Tablet(s) Oral every night at bedtime 2019 Inactive levothyroxine 50 mcg tablet RxNorm: 836049 1 Tablet(s) PO daily 2020 Inactive gabapentin 300 mg capsule RxNorm: 464784 1 Capsule(s) PO TID 2019 Inactive levothyroxine 50 mcg tablet RxNorm: 621180 1 Tablet(s) PO daily 2019 Inactive lisinopril 2.5 mg tablet RxNorm: 700264 1 Tablet(s) PO daily 2020 Inactive gabapentin 300 mg capsule RxNorm: 321607 1 Capsule(s) PO TID 2019 Inactive cetirizine 10 mg tablet RxNorm: 8218215 1 Tablet(s) PO daily 2019 Inactive Singulair 10 mg tablet RxNorm: 927042 1 Tablet(s) PO daily 2020 Inactive gentamicin 0.3 % eye drops RxNorm: 986795 1 Drop(s) ophthalmic (eye) four times a day 2019 Inactive gentamicin 0.3 % eye drops RxNorm: 195019 1 Drop(s) ophthalmic (eye) four times a day 2019 Inactive gentamicin 0.3 % eye drops RxNorm: 575047 1 Drop(s) ophthalmic (eye) four times a day 2019 Inactive hydrochlorothiazide 25 mg tablet RxNorm: 013297 1 Tablet(s) Oral every day 2019 Inactive Sudafed 12 Hour 120 mg tablet,extended release RxNorm: 1355609 TAKE (1) TABLET BY MOUTH EVERY 12 HOURS NEEDED 2019 Inactive loperamide 2 mg tablet RxNorm: 951573 1 Tablet(s) Oral as needed take one tablet after each loose stool, maximum of 8 tablets in 24 hours 020 2019 Inactive loperamide 2 mg tablet RxNorm: 918971 1 Tablet(s) Oral as needed take one tablet after each loose stool, maximum of 8 tablets in 24 hours 020 2019 Inactive atorvastatin 40 mg tablet RxNorm: 080517 1 Tablet(s) Oral every day 2020 Inactive quetiapine 100 mg tablet RxNorm: 048769 1 Tablet(s) Oral every night at bedtime 2019 Inactive sertraline 100 mg tablet RxNorm: 956204 1 Tablet(s) Oral 2019 Inactive omeprazole 20 mg capsule,delayed release RxNorm: 931654 1 Capsule(s) Oral every day 2019 Inactive amoxicillin 250 mg capsule RxNorm: 816052 1 Capsule(s) Oral three times a day 2019 Inactive multivitamin with iron-mineral tablet RxNorm: 1 Tablet(s) Oral every day 2021 Inactive cetirizine 10 mg tablet RxNorm: 8486005 1 Tablet(s) PO daily 2019 Inactive This refill negates all other refills of this medication. Please do not auto refill Singulair 10 mg tablet RxNorm: 982420 1 Tablet(s) PO daily 2019 Inactive This refill negates all other refills of this medication gabapentin 300 mg capsule RxNorm: 387228 1 Capsule(s) PO TID 2019 Inactive lisinopril 2.5 mg tablet RxNorm: 975654 1 Tablet(s) PO daily 2019 Inactive levothyroxine 50 mcg tablet RxNorm: 197136 1 Tablet(s) PO daily 2019 Inactive This refill negates all other refills of this medication hydrochlorothiazide 25 mg tablet RxNorm: 842804 1 Tablet(s) Oral every day 020 2019 Inactive fenugreek seed extract 500 mg capsule RxNorm: 1 Capsule(s) Oral three times a day 2021 Inactive Alcohol Prep Pads RxNorm: 986239 1 Patch TOP QAM 2020 Inactive loperamide 2 mg tablet RxNorm: 274606 1 Tablet(s) Oral as needed take one [...] 2019 Inactive hydrochlorothiazide 25 mg tablet RxNorm: 062367 1 Tablet(s) Oral every day 019 2019 Inactive Sudafed 12 Hour 120 mg tablet,extended release RxNorm: 1068246 1 Tablet(s) Oral every 12 hours as needed 019 2018 Inactive omeprazole 20 mg capsule,delayed release RxNorm: 662052 1 Capsule(s) Oral every day 019 2019 Inactive Sudafed 12 Hour 120 mg tablet,extended release RxNorm: 1351436 1 Tablet(s) Oral every 12 hours as needed 019 2018 Inactive pantoprazole 40 mg tablet,delayed release RxNorm: 517893 1 Tablet(s) Oral every day 019 2018 Inactive discontinue any other H2Blkr. and PPI albuterol sulfate 2.5 mg/3 mL (0.083 %) solution for nebulization RxNorm: 900660 1 Vial Inhalation every four hours as needed as needed for dyspnea 019 2019 Inactive 60/box. This refill negates all other refills of this medication. Please do not fill early. Please do not auto refill. Symbicort 160 mcg-4.5 mcg/actuation HFA aerosol inhaler RxNorm: 1143493 2 Puff(s) INH BID No Stop Date Active Alcohol Prep Pads RxNorm: 208772 1 Patch TOP QAM 019 2019 Inactive Ventolin HFA 90 mcg/actuation aerosol inhaler RxNorm: 207894 2 Puff(s) INH QID 019 2019 Inactive Please do not fill early. Please do not auto refill. This refill negates all other refills of this medication True Metrix Glucose Test Strip RxNorm: 1 Test Strips Miscellaneous QAM 019 2019 Inactive 100/container atorvastatin 40 mg tablet RxNorm: 070661 1 Tablet(s) Oral every day 019 2019 Inactive buspirone 7.5 mg tablet RxNorm: 276821 1 Tablet(s) PO BID 019 2020 Inactive This refill negates all other refills of this medication hydrochlorothiazide 12.5 mg tablet RxNorm: 630889 1 Tablet(s) PO QAM 019 2019 Inactive levmetamfetamine 50 mg nasal inhaler RxNorm: 1 Unit(s) NASAL Q3-4H Do not use more than every 3 hours or 8 times/24hours 019 2021 Inactive Please do not auto refill. This refill negates all other refills of this medication Ventolin HFA 90 mcg/actuation aerosol inhaler RxNorm: 796864 2 Puff(s) INH QID 019 2018 Inactive Please do not fill early. Please do not auto refill. This refill negates all other refills of this medication Singulair 10 mg tablet RxNorm: 540891 1 Tablet(s) PO daily 019 2019 Inactive This refill negates all other refills of this medication cetirizine 10 mg tablet RxNorm: 2830899 1 Tablet(s) PO daily 019 2019 Inactive This refill negates all other refills of this medication. Please do not auto refill levothyroxine 50 mcg tablet RxNorm: 944662 1 Tablet(s) PO daily 019 2019 Inactive This refill negates all other refills of this medication diclofenac sodium 75 mg tablet,delayed release RxNorm: 890273 1 Tablet(s) PO BID 019 2019 Inactive This refill negates all other refills of this medication ranitidine 150 mg tablet RxNorm: 382363 1 Tablet(s) PO BID 019 2018 Inactive This refill negates all other refills of this medication Calcium 600-D3 Plus (mag-zinc) 600 mg calcium-800 unit-50 mg tablet RxNorm: 1 Tablet(s) PO daily take an additonal tablet for itching. 2018 Inactive This refill negates all other refills of this medication albuterol sulfate 2.5 mg/3 mL (0.083 %) solution for nebulization RxNorm: 480320 1 Vial INH QID 2018 Inactive 60/box. This refill negates all other refills of this medication. Please do not fill early. Please do not auto refill. lisinopril 2.5 mg tablet RxNorm: 684956 1 Tablet(s) PO daily 019 2019 Inactive gabapentin 300 mg capsule RxNorm: 609662 1 Capsule(s) PO TID 019 2019 Inactive atorvastatin 20 mg tablet RxNorm: 063115 1 Tablet(s) PO QHS 019 2018 Inactive This refill negates all other refills of this medication TRUEplus Lancets 30 gauge RxNorm: 1 Lancets Miscellaneous QAM 2018 Inactive 100/box gabapentin 300 mg capsule RxNorm: 313827 1 Capsule(s) PO TID 019 2018 Inactive Flmarktones Complete (iron) 18 mg iron chewable tablet RxNorm: 1 Tablet(s) PO daily 019 2021 Inactive This refill negates all other refills of this medication gabapentin 300 mg capsule RxNorm: 223310 1 Capsule(s) PO TID as needed 2018 Inactive True Metrix Glucose Test Strip RxNorm: 1 Test Strips Miscellaneous QAM 019 2018 Inactive 100/container Alcohol Prep Pads RxNorm: 262355 1 Patch TOP QAM 2018 Inactive TRUEplus Lancets 30 gauge RxNorm: 1 Lancets Miscellaneous QAM 019 2018 Inactive 100/box lisinopril 2.5 mg tablet RxNorm: 083290 1 Tablet(s) PO daily 019 2018 Inactive ranitidine 150 mg tablet RxNorm: 792188 1 Tablet(s) PO BID 2018 Inactive This refill negates all other refills of this medication albuterol sulfate 2.5 mg/3 mL (0.083 %) solution for nebulization RxNorm: 334513 1 Vial INH QID 2018 Inactive 60/box. [...] this medication gabapentin 300 mg capsule RxNorm: 717616 1 Capsule(s) PO TID as needed 019 2018 Inactive atorvastatin 20 mg tablet RxNorm: 882654 1 Tablet(s) PO QHS 019 2018 Inactive This refill negates all other refills of this medication trazodone 50 mg tablet RxNorm: 085313 1 Tablet(s) PO QHS 019 2018 Inactive This refill negates all other refills of this medication Ventolin HFA 90 mcg/actuation aerosol inhaler RxNorm: 313434 2 Puff(s) INH QID 019 2018 Inactive Please do not fill early. Please do not auto refill. This refill negates all other refills of this medication Calcium 600-D3 Plus 600 mg calcium-800 unit-50 mg tablet RxNorm: 1 Tablet(s) PO daily take an additonal tablet for itching. 019 2018 Inactive This refill negates all other refills of this medication Singulair 10 mg tablet RxNorm: 570433 1 Tablet(s) PO daily 019 2018 Inactive This refill negates all other refills of this medication buspirone 7.5 mg tablet RxNorm: 102337 1 Tablet(s) PO BID 019 2018 Inactive This refill negates all other refills of this medication diclofenac sodium 75 mg tablet,delayed release RxNorm: 052138 1 Tablet(s) PO BID 019 2018 Inactive This refill negates all other refills of this medication hydrochlorothiazide 12.5 mg tablet RxNorm: 536330 1 Tablet(s) PO QAM 019 2018 Inactive metoprolol succinate ER 50 mg tablet,extended release 24 hr RxNorm: 775009 1 Tablet(s) PO daily 019 2018 Inactive This refill negates all other refills of this medication levothyroxine 50 mcg tablet RxNorm: 212633 1 Tablet(s) PO daily 019 2018 Inactive This refill negates all other refills of this medication cetirizine 10 mg tablet RxNorm: 1394147 1 Tablet(s) PO daily 019 2018 Inactive This refill negates all other refills of this medication. Please do not auto refill Flintstones Complete (iron) 18 mg iron chewable tablet RxNorm: 1 Tablet(s) PO daily 2018 Inactive This refill negates all other refills of this medication buspirone 7.5 mg tablet RxNorm: 403154 1 Tablet(s) PO BID 019 2018 Inactive cetirizine 10 mg tablet RxNorm: 2429058 1 Tablet(s) PO daily 2018 Inactive Guaiasorb DM 10 mg-100 mg/5 mL oral liquid RxNorm: 744480 10 Milliliter(s) PO As needed every 4 hr 2018 Inactive Vicks Vaporub 4.7 %-1.2 %-2.6 % topical ointment RxNorm: 8112097 1 Application TOP TID 2018 Inactive levmetamfetamine 50 mg nasal inhaler RxNorm: 1 Unit(s) NASAL Q3-4H 2017 Inactive sertraline 50 mg tablet RxNorm: 270808 1 Tablet(s) PO daily 2018 Inactive Please note dose trazodone 50 mg tablet RxNorm: 391122 1 Tablet(s) PO QHS 018 2018 Inactive sertraline 50 mg tablet RxNorm: 528930 1 Tablet(s) PO daily 2017 Inactive amoxicillin 500 mg tablet RxNorm: 952665 1 Tablet(s) PO Q12H 2017 Inactive albuterol sulfate 2.5 mg/3 mL (0.083 %) solution for nebulization RxNorm: 165965 1 Vial INH QID 2018 Inactive 60/box. Please do not fill early. Please do not auto refill. Prozac 10 mg capsule RxNorm: 758893 1 Capsule(s) PO daily 2017 Inactive buspirone 7.5 mg tablet RxNorm: 755123 1 Tablet(s) PO BID 018 2018 Inactive gabapentin 300 mg capsule RxNorm: 235430 1 Capsule(s) PO TID as needed 2018 Inactive hydrochlorothiazide 12.5 mg tablet RxNorm: 902794 1 Tablet(s) PO QAM 018 2018 Inactive ranitidine 150 mg tablet RxNorm: 584203 1 Tablet(s) PO BID 018 2018 Inactive Macrobid 100 mg capsule RxNorm: 057351 1 Capsule(s) PO Q12H 018 2017 Inactive Singulair 10 mg tablet RxNorm: 364310 1 Tablet(s) PO daily 018 2018 Inactive Ventolin HFA 90 mcg/actuation aerosol inhaler RxNorm: 2998142 2 Puff(s) INH QID 018 2018 Inactive Singulair 10 mg tablet RxNorm: 725913 1 Tablet(s) PO daily 018 2017 Inactive buspirone 7.5 mg tablet RxNorm: 716278 1 Tablet(s) PO BID 018 2017 Inactive Prozac 10 mg capsule RxNorm: 318372 1 Capsule(s) PO daily 018 2017 Inactive diclofenac sodium 75 mg tablet,delayed release RxNorm: 102111 1 Tablet(s) PO BID 018 2017 Inactive lisinopril 2.5 mg tablet RxNorm: 996500 1 Tablet(s) PO daily 018 2017 Inactive Neilmed Pediatric Sinus Rinse Refill packet RxNorm: 1 Unit Dose NASAL PRN 018 2021 Inactive metoprolol succinate ER 50 mg tablet,extended release 24 hr RxNorm: 559736 1 Tablet(s) PO daily 018 2017 Inactive levothyroxine 50 mcg tablet RxNorm: 054686 1 Tablet(s) PO daily 018 2017 Inactive TRUEplus Lancets 30 gauge RxNorm: 1 Lancets Miscellaneous QAM 018 2017 Inactive 100/box Ventolin HFA 90 mcg/actuation aerosol inhaler RxNorm: 369962 2 Puff(s) INH QID 018 2017 Inactive Aleve 220 mg capsule RxNorm: 6464340 1 Capsule(s) PO BID 018 2018 Inactive ranitidine 150 mg tablet RxNorm: 353958 1 Tablet(s) PO BID 018 2017 Inactive gabapentin 300 mg capsule RxNorm: 817889 1 Capsule(s) PO TID as needed 018 2017 Inactive atorvastatin 20 mg tablet RxNorm: 964087 1 Tablet(s) PO QHS 018 2017 Inactive True Metrix Glucose Test Strip RxNorm: 1 Test Strips Miscellaneous QAM 018 2017 Inactive 50/container Calcium 600-D3 Plus 600 mg calcium-800 unit-50 mg tablet RxNorm: 1 Tablet(s) PO daily take an additonal tablet for itching. 018 2017 Inactive hydrochlorothiazide 12.5 mg tablet RxNorm: 524346 1 Tablet(s) PO QAM 018 2017 Inactive Flintstones Complete (iron) 18 mg iron chewable tablet RxNorm: 1 Tablet(s) PO daily 018 2017 Inactive True Metrix Glucose Meter RxNorm: miscellaneous 019 2018 Inactive sertraline 50 mg tablet RxNorm: 200413 1 Tablet(s) PO daily 020 2019 Inactive loperamide 2 mg tablet RxNorm: 991193 oral 019 2018 Inactive d-mannose oral powder RxNorm: PO 018 2021 Inactive Symbicort 160 mcg-4.5 mcg/actuation HFA aerosol inhaler RxNorm: 5755073 2 Puff(s) INH BID 019 2018 Inactive Medication Administered No Medication Administered data Procedures Procedure Codes Date [place] Fany Assessment CPT-4: DSWA 04/02 Patient Health [...] Planning CPT-4: VACP [facility]11 4 CPT-4: DFRA01/13/2021emmes Fany AssessmentCPT-4: DSWA12/17/2020Urinalysis, dip stickCPT-4: 998620609/24/2020Patient Health QuestionnaireCPT-4: DPHQ 08/19/2020ElectrocardiogramCPT-4: 7257050Tobacco Assessment/Screening CPT-4: TCA01/01/2020Fall Risk AssessmentSNOMED CT: 892044509 CPT-4: DFRA01/01/2020Functional AssessmentCPT-4: DFA01/01/2020Sem[place] Fany AssessmentCPT-4: DSWA11/28/2019Patient Health QuestionnaireCPT-4: DPHQ11/28/2019 [place] F[place] AssessmentCPT-4: DSWA10/17/2019HypertensionCPT-4: HTN10/17/[address]: 518899116 CPT-4: DFRA09/19/2019Functional AssessmentCPT-4: DFA111/20/2018Urinalysis, dip stickCPT-4: 9365768Tobacco Assessment/ScreeningCPT-4: TCA05/24/2019 Patient Health QuestionnaireCPT-4: DPHQ05/24/2019AHA/REBECCA Classification AssessmentCPT-4: DAHA04/25/2019Controlled Substance ReportCPT-4: CTRSU07 Urinalysis, dip stickCPT-4: 151402103/28/2019Urinalysis, dip stickCPT-4: 01879 03/28/20194365S4A-VouznredcydznyfNOT-4: 93416CjimcdmK5D-YimnfodlliahilxUFJ-7: 55980 LxwnauaP5U-QkvzaluzdruvxbnKHI-1: 35032VbgjlleS2X-GhkcimbzokzqqveMHS-0: 58241 NqsnypfS4H-XqvreqydjowpshvVSI-9: 90242BnhwfqeQ3I-HmhvmohhkplbmryAQC-2: 15649 GlbikmyA1V-ZkbtynstlncxcqeLDH-7: 86075MseoqtfB7T-LfojhfalvjmxwqkYIN-2: 77530 SqqkzurN5H-LbvlaeqtnzinygvANM-2: 68639HlhnxcyXbwyternnw ReferralSNOMED CT: 746893623 CPT-4: S45Lzswnbi Reason For Visit No Reason For Visit data Plan of Care Planned Activity Notes Codes Status Date Referral: Pending Gynecology Referral Informatio n Referral ProcessedReferral: Pending Pulmonology Referral InformationReferralProcessed Referral: Pending Psychiatry Referral InformationReferralInitiatedReferral: Pending Respiratory Services Referral InformationReferralInitiatedReferral: Pending Ophthalmology Referral InformationReferralInitiatedReferral: [facility] WPtel: [address] [place], [place] [id number] USWriter placed a call out to the patient to notify her that it has been recommended that she be seenby a urologist. Patient agreed to be seen, does not have a provider of choice and no transportationissues. Center Receptionist faxed referral and clinical notes to [facility] in [place], [place] near the patient's home. Patient to [...] seen and prefers a provider in the [place] or [place] area. Center Receptionist placed a call out to everyone listed in the area and the only location that was able to accept the patient's insurance was [facility] [address] [place] [address] and spoke with Maylin. Maylin asked that the patient's referral, face sheet and visit notes be faxed to . Center Receptionist faxed over requested documents. Patient appointment confirmation letter generated and mailed to her home address. Patient to call to schedule an appointment.[facility]edRef[facility] W[facility]el: [address] [facility] [address] [place], [place] [id number] USPatient notified that it has been advised that she be seen by Neurology. Patient agreed to be seen and prefers to be seen by a provider in the [place], [place] area. Patient denies any concerns with transportation, and prefers to schedule her own appointment. Center Receptionist placed a call out to [facility] and spoke with Neeraj P: who confirmed that their office is able to acceptnew patients and the patient's insurance. After confirming the providers fax number, check writer faxed over the patient's referral, and [...]
--- OUTSIDE RECORDS SUMMARY | 2023-12-07 02:21 | XMS_ITS | CCD ---
Author Name Leena Culver NP Address [address] [place] [address] [place] [id number] Phone Organization [facility] Phone Care Team Providers Care Pantry Goods Maker Name Role Phone Anna Culver NP Primary Care Provider Unav ailable Unavailable Chronic Care Management Unavaila ble Summary Purpose DataExchange Insurance Providers Payer name Policy type / Coverage type Covered alliance party ID Effective Begin Date Effective End Date SUKI BUTTS MARIA ESTHER [id number] Unknown Unknown Family history Mother Diagnosis Age [...] 05/31/2018 Education level Unknown Some High School 10th05/31/20180526PlewgvhokgFphclpiQpbxwsoyre15/29/2018Tobacco historySNOMED CT: [id number] never smoked or chewed fekgyms4605/31/2018Alcohol historySNOMED CT: 495156744Npngj drinks irpnyxu6005/31/2018Has the patient ever used illegal drugs? UnknownHas never used illegal drugs05/31/2018DNR Order/ Advanced Directive UnknownFull Code05/31/2018 Allergies, Adverse Reactions, Alerts Substance Reaction Codes Entered Date Inactivated Date Status OxyContin itch, RxNorm: 777660 01/13/2021 No Inactive Da te Active *No known food allergies Yjazstm3009/06/2018No Inactive DateActiveMethylprednisolonehivesRxNorm: 6902 09/06/2018No Inactive DateActive Problems Condition Codes Effective Dates Condition St atus Adult BMI 50.0-59.9 kg/sq m ICD-10: Z68. 43 ICD-9: V85.4308/ActiveEncounter for immunizationICD-10: Z23 ICD-9: V04.8111/ctiveFungal infection of skinICD-10: B36.9 ICD-9: 111.911/ctiveHypertensionICD-10: I10 ICD-9: 401.903/ctiveInfluenza vaccine refusedICD-10: Z28.21 ICD-9: V64.0609/ctiveType 2 diabetes mellitus with peripheral neuropathy ICD-10: E11.42 ICD-9: 250.6002/ActiveAsthmaICD-10: J45.909 ICD-9: 493.9011ActiveGERD (gastroesophageal reflux disease)ICD-10: K21.9 ICD-9: 530.8112ActiveMajor depression, recurrentICD-10: F33.9 ICD-9: 296.3009/2ActiveObstructive sleep apnea (adult) (pediatric)ICD-10: G47.33 ICD-9: 327.2309ActivePost-traumatic stress disorder, unspecifiedICD-10: F43.10 ICD-9: 309.8112ActiveAdjustment disorder with mixed anxiety and depressed moodICD-10: F43.23 ICD-9: 309.2812ActiveAnkle sprainICD-10: S93.409A ICD-9: 845.0010/ctiveHypertensive heart diseaseICD-10: I11.9 ICD-9: 402.9003/ctiveHypothyroidICD-10: E03.9 ICD-9: 244.912ActiveAbscessICD-10: L02.91 ICD-9: 682.907/ctiveHyperlipidemia, mixedICD-10: E78.2 ICD-9: 272.203/2Active(Z00.00-V70.9) Encounter for general adult medical examination without abnormal findingsICD-10: Z00.00 ICD-9: V70.905/2ActiveAllergic rhinitisICD-10: J30.9 ICD-9: 477.903/2ActiveEdema, unspecifiedICD-10: R60.9 ICD-9: [...] R06.00 ICD-9: 786.0905/06/2019ResolvedElevated liver enzymesICD-10: R74.8 ICD-9: 790.504esolvedEncounter for screening for tobacco useICD-10: Z01.89 ICD-9: V72.8503ResolvedEncounter for screening, unspecifiedICD-10: Z13.9 ICD-9: V82.912ResolvedFamily history of seizuresICD-10: Z84.89 ICD-9: V19.807/esolvedHyperlipidemia, unspecifiedICD-10: E78.5 ICD-9: 272.408ResolvedLong term (current) use of non-steroidal anti- inflammatories (NSAID)ICD-10: Z79.1 ICD-9: V58.6409ResolvedPatient Not SeenICD-10: UXZ.01 ICD-9: XZ0.107ResolvedPatient not seenICD-10: UXZ.01 ICD-9: UXZ.0112/esolvedUpper respiratory infectionICD-10: J06.9 ICD-9: 465.908esolvedSyncope and collapseICD-10: R55 ICD-9: 780.203ActiveHistory of bladder surgeryICD-10: Z98.890 ICD-9: V45.8904ctiveUrinary retention with incomplete bladder emptying ICD-10: R33.9 ICD-9: 788.2104/1ActiveApnea, not elsewhere classifiedICD-10: R06.81 ICD-9: 786.0305InactiveChest pain, unspecifiedICD-10: R07.9 ICD-9: 786.5002InactiveChronic kidney disease, unspecifiedICD-10: N18.9 ICD-9: 585.909/InactiveEncounter for immunizationICD-10: Z23 ICD-9: V03.907/InactiveEncounter for preprocedural cardiovascular examinationICD-10: Z01.810 ICD-9: V72.8106/InactiveHeadacheICD-10: R51 ICD-9: 784.001/10/2018InactiveOther termination clerk (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ICD-10: Z79.899 ICD-9: V58.6907/InactiveType 2 [...] ICD-9: 788.3308ActiveAbnormal electrocardiogram [ECG] [EKG]ICD-10: R94.31 ICD-9: 794.3108/Active Medications Medication Codes Instructions Start Date Stop Date Status Fill Instructions clotrimazole 1 % topical cream RxNorm: 039355 Apply 1 Application Topical two times a day as needed apply to affected area(s) twice daily until healed 2021 Inactive Victoza 2-Sebastián 0.6 mg/0.1 mL (18 mg/3 mL) subcutaneous pen injector RxNorm: 281622 Inject 0.6-1.8 Milligram(s) Subcutaneous once a week Inject 0.6mg/0.1ml week one, 1.2mg/0.2ml week two, 1.8/0.3ml weekly thereafter 2021 Inactive ibuprofen 800 mg tablet RxNorm: 318176 Take 1 Tablet(s) Oral Q8H as needed for pain take with food No Stop Date Active Ozempic 1 mg/dose (4 mg/3 mL) subcutaneous pen injector RxNorm: 1341600 Take 1 Unit Dose Subcutaneous QWeek Tuesday2021 Inactive lisinopril 2.5 mg tablet RxNorm: 114962 Take 1 Tablet(s) Oral every day 2021 Inactive lisinopril 2.5 mg tablet RxNorm: 246827 Take 1 Tablet(s) Oral every day 022 2022 Inactive hydrochlorothiazide 25 mg tablet RxNorm: 271528 Take 1 Tablet(s) Oral every day 022 2021 Inactive Ozempic 1 mg/dose (4 mg/3 mL) subcutaneous pen injector RxNorm: 1489464 Take 1 Unit Dose Subcutaneous QWeek 022 2021 Inactive famotidine 20 mg tablet RxNorm: 391112 Take 1 Tablet(s) Oral every morning 2021 Inactive levothyroxine 50 mcg tablet RxNorm: 833129 Take 1 Tablet(s) Oral every day 022 2021 Inactive atorvastatin 20 mg tablet RxNorm: 608942 Take 1 Tablet(s) Oral every night at bedtime 2021 Inactive Cleocin T 1 % lotion RxNorm: 604467 Take 2 Gram(s) Topical every day 022 2021 Inactive Cleocin T 1 % lotion RxNorm: 044994 Take 2 Gram(s) Topical every day 022 2021 Inactive Ozempic 1 mg/dose (4 mg/3 mL) subcutaneous pen injector RxNorm: 0148939 Take 1 Unit Dose Subcutaneous QWeek 022 2021 Inactive Ozempic 0.25 mg or 0.5 mg (2 mg/1.5 mL) subcutaneous pen injector RxNorm: 2156986 INJECT 0.5 MGS SUBCUTANEOUSLY EVERY WEEK 022 2021 Inactive omeprazole 20 mg capsule,delayed release RxNorm: 073286 Take 1 Capsule(s) Oral every evening 2021 Inactive levothyroxine 50 mcg tablet RxNorm: 886952 Take 1 Tablet(s) Oral every day 022 2021 Inactive atorvastatin 20 mg tablet RxNorm: 922897 Take 1 Tablet(s) Oral every night at bedtime 2021 Inactive This refill negates all other refills of this medication lisinopril 2.5 mg tablet RxNorm: 353329 Take 1 Tablet(s) Oral every day 2021 Inactive gabapentin 300 mg capsule RxNorm: 293608 Take 1 Capsule(s) Oral three times a day 022 2021 Inactive montelukast 10 mg tablet RxNorm: 775496 Take 1 Tablet(s) Oral every day 022 2021 Inactive cholecalciferol (vitamin D3) 50 mcg (2,000 unit) tablet RxNorm: 919359 Take 1 Tablet(s) Oral every day 022 2022 Inactive Myrbetriq 50 mg tablet,extended release RxNorm: 5637286 1 Tablet(s) Oral every day No Stop Date Active Ozempic 0.25 mg or 0.5 mg (2 mg/1.5 mL) subcutaneous pen injector RxNorm: 1958605 inject 0.5 milligrams subcutaneously every week 022 2021 Inactive Ozempic 0.25 mg or 0.5 mg (2 mg/1.5 mL) subcutaneous pen injector RxNorm: 7270068 Take 0.5 Capsule(s) Injection once a week 022 2021 Inactive omeprazole 20 mg capsule,delayed release RxNorm: 774145 Take 1 Capsule(s) Oral every evening 2020 Inactive Ozempic 0.25 mg or 0.5 mg (2 mg/1.5 mL) subcutaneous pen injector RxNorm: 9863907 Take 0.25 Milligram(s) Subcutaneous once a week 2021 Inactive Easy Touch Alcohol Prep Pads RxNorm: 275105 USE DIRECTED EACH MORNING 2021 Inactive Probiotic 10 billion cell capsule RxNorm: 3911109 Take 1 Capsule(s) Oral every day 2021 Inactive levothyroxine 50 mcg tablet RxNorm: 078062 Take 1 Tablet(s) Oral every day 2020 Inactive Acid Transformation Analyst (famotidine) 20 mg tablet RxNorm: 521563 Take 1 Tablet(s) Oral every morning 2020 Inactive Heartburn Relief (famotidine) 10 mg tablet RxNorm: 417864 Take 1 Tablet(s) Oral QAM 2020 Inactive levothyroxine 50 mcg tablet RxNorm: 322584 Take 1 Tablet(s) Oral QD 2020 Inactive Singulair 10 mg tablet RxNorm: 359825 TAKE (1) TABLET BY MOUTH DAILY 2020 Inactive metformin 1,000 mg tablet RxNorm: 438306 1 Tablet(s) Oral two times a day 2021 Inactive lisinopril 2.5 mg tablet RxNorm: 907896 Take 1 Tablet(s) Oral every day 2020 Inactive hydrochlorothiazide 25 mg tablet RxNorm: 191149 Take 1 Tablet(s) Oral every day 021 2020 Inactive ondansetron 4 mg disintegrating tablet RxNorm: 987861 1 Tablet(s) Oral two times a day 021 2020 Inactive Sudafed 12 Hour 120 mg tablet,extended release RxNorm: 6170093 TAKE 1 TABLET BY MOUTH EVERY 12 HOURS NEEDED 021 2021 Inactive Heartburn Relief (famotidine) 10 mg tablet RxNorm: 662330 Take 1 Tablet(s) Oral every morning 021 2020 Inactive omeprazole 20 mg capsule,delayed release RxNorm: 759483 1 Capsule(s) Oral every evening 021 2020 Inactive sertraline 100 mg tablet RxNorm: 356283 2 Tablet(s) Oral every day 021 2020 Inactive levothyroxine 50 mcg tablet RxNorm: 041496 TAKE (1) TABLET BY MOUTH DAILY 021 2020 Inactive metformin 500 mg tablet RxNorm: 506743 1 Tablet(s) Oral two times a day take with 500mg to equal 1000mg 021 2020 Inactive gabapentin 300 mg capsule RxNorm: 743595 TAKE 1 CAPSULE BY MOUTH THREE TIMES A DAY 021 2020 Inactive lisinopril 2.5 mg tablet RxNorm: 388086 TAKE 1 TABLET BY MOUTH DAILY 021 2020 Inactive gabapentin 300 mg capsule RxNorm: 141544 TAKE 1 CAPSULE BY MOUTH THREE TIMES A DAY 021 2020 Inactive Singulair 10 mg tablet RxNorm: 985144 TAKE (1) TABLET BY MOUTH DAILY 021 2020 Inactive metformin 1,000 mg tablet RxNorm: 986867 1 Tablet(s) Oral two times a day 021 2020 Inactive atorvastatin 40 mg tablet RxNorm: 286205 1 Tablet(s) Oral every day 021 2020 Inactive omeprazole 20 mg capsule,delayed release RxNorm: 103552 1 Capsule(s) Oral every evening 021 2020 Inactive famotidine 10 mg tablet RxNorm: 200139 1 Tablet(s) Oral every morning 021 2020 Inactive Alcohol Prep Pads RxNorm: 060774 USE EACH MORNING 2020 Inactive omeprazole 20 mg capsule,delayed release RxNorm: 456189 1 Capsule(s) Oral two times a day 2021 Inactive omeprazole 20 mg capsule,delayed release RxNorm: 208011 TAKE 1 CAPSULE BY MOUTH EVERY DAY 2021 Inactive Macrobid 100 mg capsule RxNorm: 745058 1 Capsule(s) Oral every 12 hours with food 2020 Inactive omeprazole 20 mg capsule,delayed release RxNorm: 936806 1 Capsule(s) Oral two times a day 2021 Inactive metformin 1,000 mg tablet RxNorm: 188629 1 Tablet(s) Oral two times a day 2020 Inactive start on September 11, 2020 metformin 500 mg tablet RxNorm: 594427 1 Tablet(s) Oral two times a day take with 500mg to equal 1000mg 2019 Inactive gabapentin 300 mg capsule RxNorm: 878735 TAKE 1 CAPSULE BY MOUTH THREE TIMES DAILY 2020 Inactive cetirizine 10 mg tablet RxNorm: 3458597 TAKE (1) TABLET BY MOUTH DAILY 2020 Inactive metformin 500 mg tablet RxNorm: 004993 1 Tablet(s) Oral two times a day 2019 Inactive loperamide 2 mg tablet RxNorm: 706560 1 Tablet(s) Oral as needed take one tablet after each loose stool, maximum of 8 tablets in 24 hours 2021 Inactive Sudafed 12 Hour 120 mg tablet,extended release RxNorm: 5148356 TAKE 1 TABLET BY MOUTH EVERY 12 HOURS NEEDED 06/11/ 2020 Inactive hydrochlorothiazide 25 mg tablet RxNorm: 454713 TAKE (1) TABLET BY MOUTH EVERY DAY 020 2019 Inactive omeprazole 20 mg capsule,delayed release RxNorm: 536595 TAKE 1 CAPSULE BY MOUTH EVERY DAY 020 2020 Inactive metformin 500 mg tablet RxNorm: 503701 1 Tablet(s) Oral every day 020 2019 Inactive True Metrix Glucose Test Strip RxNorm: 1 Test Strips Miscellaneous two times a day as needed No Stop Date Active metformin 500 mg tablet RxNorm: 337530 1 Tablet(s) Oral every day 020 2019 Inactive diclofenac sodium 75 mg tablet,delayed release RxNorm: 573521 1 Tablet(s) PO BID 2021 Inactive This refill negates all other refills of this medication Sudafed 12 Hour 120 mg tablet,extended release RxNorm: 1237425 TAKE 1 TABLET BY MOUTH EVERY 12 HOURS NEEDED 020 2019 Inactive True Metrix Glucose Test Strip RxNorm: 1 Test Strips Miscellaneous every morning 020 2019 Inactive 100/container True Metrix Glucose Test Strip RxNorm: 1 Test Strips Miscellaneous QA 020 2019 Inactive 100/container loperamide 2 mg tablet RxNorm: 669190 1 Tablet(s) Oral as needed take one tablet after each loose stool, maximum of 8 tablets in 24 hours 020 2019 Inactive cetirizine 10 mg tablet RxNorm: 0623616 1 Tablet(s) PO daily 020 2019 Inactive loperamide 2 mg tablet RxNorm: 971913 1 Tablet(s) Oral as needed take one tablet after each loose stool, maximum of 8 tablets in 24 hours 020 2019 Inactive quetiapine 100 mg tablet RxNorm: 200989 1 Tablet(s) Oral every night at bedtime 020 2019 Inactive levothyroxine 50 mcg tablet RxNorm: 896677 1 Tablet(s) PO daily 020 2020 Inactive gabapentin 300 mg capsule RxNorm: 038792 1 Capsule(s) PO TID 2019 Inactive levothyroxine 50 mcg tablet RxNorm: 553332 1 Tablet(s) PO daily 2019 Inactive lisinopril 2.5 mg tablet RxNorm: 665309 1 Tablet(s) PO daily 020 2020 Inactive gabapentin 300 mg capsule RxNorm: 515152 1 Capsule(s) PO TID 2019 Inactive cetirizine 10 mg tablet RxNorm: 5534667 1 Tablet(s) PO daily 2019 Inactive Singulair 10 mg tablet RxNorm: 808017 1 Tablet(s) PO daily 2020 Inactive gentamicin 0.3 % eye drops RxNorm: 968460 1 Drop(s) ophthalmic (eye) four times a day 2019 Inactive gentamicin 0.3 % eye drops RxNorm: 771238 1 Drop(s) ophthalmic (eye) four times a day 2019 Inactive gentamicin 0.3 % eye drops RxNorm: 272426 1 Drop(s) ophthalmic (eye) four times a day 2019 Inactive hydrochlorothiazide 25 mg tablet RxNorm: 154401 1 Tablet(s) Oral every day 2019 Inactive Sudafed 12 Hour 120 mg tablet,extended release RxNorm: 0569624 TAKE (1) TABLET BY MOUTH EVERY 12 HOURS NEEDED 2019 Inactive loperamide 2 mg tablet RxNorm: 594936 1 Tablet(s) Oral as needed take one tablet after each loose stool, maximum of 8 tablets in 24 hours 020 2019 Inactive loperamide 2 mg tablet RxNorm: 472675 1 Tablet(s) Oral as needed take one tablet after each loose stool, maximum of 8 tablets in 24 hours 2019 Inactive atorvastatin 40 mg tablet RxNorm: 786492 1 Tablet(s) Oral every day 2020 Inactive quetiapine 100 mg tablet RxNorm: 893804 1 Tablet(s) Oral every night at bedtime 2019 Inactive sertraline 100 mg tablet RxNorm: 016113 1 Tablet(s) Oral 2019 Inactive omeprazole 20 mg capsule,delayed release RxNorm: 781719 1 Capsule(s) Oral every day 2019 Inactive amoxicillin 250 mg capsule RxNorm: 918283 1 Capsule(s) Oral three times a day 2019 Inactive multivitamin with iron-mineral tablet RxNorm: 1 Tablet(s) Oral every day 2021 Inactive cetirizine 10 mg tablet RxNorm: 5652636 1 Tablet(s) PO daily 2019 Inactive This refill negates all other refills of this medication. Please do not auto refill Singulair 10 mg tablet RxNorm: 875108 1 Tablet(s) PO daily 2019 Inactive This refill negates all other refills of this medication gabapentin 300 mg capsule RxNorm: 043873 1 Capsule(s) PO TID 2019 Inactive lisinopril 2.5 mg tablet RxNorm: 312691 1 Tablet(s) PO daily 2019 Inactive levothyroxine 50 mcg tablet RxNorm: 707038 1 Tablet(s) PO daily 2019 Inactive This refill negates all other refills of this medication hydrochlorothiazide 25 mg tablet RxNorm: 045419 1 Tablet(s) Oral every day 2019 Inactive fenugreek seed extract 500 mg capsule RxNorm: 1 Capsule(s) Oral three times a day 020 2021 Inactive Alcohol Prep Pads RxNorm: 019103 1 Patch TOP QAM /11/ 2021 Inactive loperamide 2 mg tablet RxNorm: 197346 1 Tablet(s) Oral as needed take one [...] 2019 Inactive hydrochlorothiazide 25 mg tablet RxNorm: 335462 1 Tablet(s) Oral every day 2019 Inactive Sudafed 12 Hour 120 mg tablet,extended release RxNorm: 2109700 1 Tablet(s) Oral every 12 hours as needed 2018 Inactive omeprazole 20 mg capsule,delayed release RxNorm: 203954 1 Capsule(s) Oral every day 2019 Inactive Sudafed 12 Hour 120 mg tablet,extended release RxNorm: 3279673 1 Tablet(s) Oral every 12 hours as needed 2018 Inactive pantoprazole 40 mg tablet,delayed release RxNorm: 661355 1 Tablet(s) Oral every day 2018 Inactive discontinue any other H2Blkr. and PPI albuterol sulfate 2.5 mg/3 mL (0.083 %) solution for nebulization RxNorm: 938843 1 Vial Inhalation every four hours as needed as needed for dyspnea 2019 Inactive 60/box. This refill negates all other refills of this medication. Please do not fill early. Please do not auto refill. Symbicort 160 mcg-4.5 mcg/actuation HFA aerosol inhaler RxNorm: 3032327 2 Puff(s) INH BID 019 No Stop Date Active Alcohol Prep Pads RxNorm: 677742 1 Patch TOP QAM 019 2019 Inactive Ventolin HFA 90 mcg/actuation aerosol inhaler RxNorm: 630424 2 Puff(s) INH QID 019 2019 Inactive Please do not fill early. Please do not auto refill. This refill negates all other refills of this medication True Metrix Glucose Test Strip RxNorm: 1 Test Strips Miscellaneous QAM 019 2019 Inactive 100/container atorvastatin 40 mg tablet RxNorm: 678871 1 Tablet(s) Oral every day 019 2019 Inactive buspirone 7.5 mg tablet RxNorm: 203694 1 Tablet(s) PO BID 019 2020 Inactive This refill negates all other refills of this medication hydrochlorothiazide 12.5 mg tablet RxNorm: 016197 1 Tablet(s) PO QAM 019 2019 Inactive levmetamfetamine 50 mg nasal inhaler RxNorm: 1 Unit(s) NASAL Q3-4H Do not use more than every 3 hours or 8 times/24hours 019 2021 Inactive Please do not auto refill. This refill negates all other refills of this medication Ventolin HFA 90 mcg/actuation aerosol inhaler RxNorm: 836717 2 Puff(s) INH QID 019 2018 Inactive Please do not fill early. Please do not auto refill. This refill negates all other refills of this medication Singulair 10 mg tablet RxNorm: 334631 1 Tablet(s) PO daily 019 2019 Inactive This refill negates all other refills of this medication cetirizine 10 mg tablet RxNorm: 6163297 1 Tablet(s) PO daily 019 2019 Inactive This refill negates all other refills of this medication. Please do not auto refill levothyroxine 50 mcg tablet RxNorm: 933454 1 Tablet(s) PO daily 019 2019 Inactive This refill negates all other refills of this medication diclofenac sodium 75 mg tablet,delayed release RxNorm: 923495 1 Tablet(s) PO BID 019 2019 Inactive This refill negates all other refills of this medication ranitidine 150 mg tablet RxNorm: 297542 1 Tablet(s) PO BID 019 2018 Inactive This refill negates all other refills of this medication Calcium 600-D3 Plus (mag-zinc) 600 mg calcium-800 unit-50 mg tablet RxNorm: 1 Tablet(s) PO daily take an additonal tablet for itching. 019 2018 Inactive This refill negates all other refills of this medication albuterol sulfate 2.5 mg/3 mL (0.083 %) solution for nebulization RxNorm: 156836 1 Vial INH QID 2018 Inactive 60/box. This refill negates all other refills of this medication. Please do not fill early. Please do not auto refill. lisinopril 2.5 mg tablet RxNorm: 701530 1 Tablet(s) PO daily 019 2019 Inactive gabapentin 300 mg capsule RxNorm: 809956 1 Capsule(s) PO TID 019 2019 Inactive atorvastatin 20 mg tablet RxNorm: 885458 1 Tablet(s) PO QHS 019 2018 Inactive This refill negates all other refills of this medication TRUEplus Lancets 30 gauge RxNorm: 1 Lancets Miscellaneous QAM 019 2018 Inactive 100/box gabapentin 300 mg capsule RxNorm: 488760 1 Capsule(s) PO TID 019 2018 Inactive Flintstones Complete (iron) 18 mg iron chewable tablet RxNorm: 1 Tablet(s) PO daily 019 2021 Inactive This refill negates all other refills of this medication gabapentin 300 mg capsule RxNorm: 329054 1 Capsule(s) PO TID as needed 019 2018 Inactive True Metrix Glucose Test Strip RxNorm: 1 Test Strips Miscellaneous QA 019 2018 Inactive 100/container Alcohol Prep Pads RxNorm: 655385 1 Patch TOP QA 019 2018 Inactive TRUEplus Lancets 30 gauge RxNorm: 1 Lancets Miscellaneous QA 019 2018 Inactive 100/box lisinopril 2.5 mg tablet RxNorm: 689730 1 Tablet(s) PO daily 019 2018 Inactive ranitidine 150 mg tablet RxNorm: 590637 1 Tablet(s) PO BID 019 2018 Inactive This refill negates all other refills of this medication albuterol sulfate 2.5 mg/3 mL (0.083 %) solution for nebulization RxNorm: 159729 1 Vial INH QID 019 2018 Inactive [...] this medication gabapentin 300 mg capsule RxNorm: 332281 1 Capsule(s) PO TID as needed 019 2018 Inactive atorvastatin 20 mg tablet RxNorm: 343731 1 Tablet(s) PO QHS 019 2018 Inactive This refill negates all other refills of this medication trazodone 50 mg tablet RxNorm: 021771 1 Tablet(s) PO QHS 019 2018 Inactive This refill negates all other refills of this medication Ventolin HFA 90 mcg/actuation aerosol inhaler RxNorm: 311283 2 Puff(s) INH QID 019 2018 Inactive Please do not fill early. Please do not auto refill. This refill negates all other refills of this medication Calcium 600-D3 Plus 600 mg calcium-800 unit-50 mg tablet RxNorm: 1 Tablet(s) PO daily take an additonal tablet for itching. 019 2018 Inactive This refill negates all other refills of this medication Singulair 10 mg tablet RxNorm: 778553 1 Tablet(s) PO daily 019 2018 Inactive This refill negates all other refills of this medication buspirone 7.5 mg tablet RxNorm: 997537 1 Tablet(s) PO BID 019 2018 Inactive This refill negates all other refills of this medication diclofenac sodium 75 mg tablet,delayed release RxNorm: 067883 1 Tablet(s) PO BID 019 2018 Inactive This refill negates all other refills of this medication hydrochlorothiazide 12.5 mg tablet RxNorm: 417592 1 Tablet(s) PO QAM 019 2018 Inactive metoprolol succinate ER 50 mg tablet,extended release 24 hr RxNorm: 317432 1 Tablet(s) PO daily 019 2018 Inactive This refill negates all other refills of this medication levothyroxine 50 mcg tablet RxNorm: 210631 1 Tablet(s) PO daily 019 2018 Inactive This refill negates all other refills of this medication cetirizine 10 mg tablet RxNorm: 4279798 1 Tablet(s) PO daily 019 2018 Inactive This refill negates all other refills of this medication. Please do not auto refill Flintstones Complete (iron) 18 mg iron chewable tablet RxNorm: 1 Tablet(s) PO daily 019 2018 Inactive This refill negates all other refills of this medication buspirone 7.5 mg tablet RxNorm: 750584 1 Tablet(s) PO BID 019 2018 Inactive cetirizine 10 mg tablet RxNorm: 6655478 1 Tablet(s) PO daily 2018 Inactive Guaiasorb DM 10 mg-100 mg/5 mL oral liquid RxNorm: 826323 10 Milliliter(s) PO As needed every 4 hr 2018 Inactive Vicks Vaporub 4.7 %-1.2 %-2.6 % topical ointment RxNorm: 4298402 1 Application TOP TID 2018 Inactive levmetamfetamine 50 mg nasal inhaler RxNorm: 1 Unit(s) NASAL Q3-4H 2017 Inactive sertraline 50 mg tablet RxNorm: 023745 1 Tablet(s) PO daily 2018 Inactive Please note dose trazodone 50 mg tablet RxNorm: 382562 1 Tablet(s) PO QHS 2018 Inactive sertraline 50 mg tablet RxNorm: 878721 1 Tablet(s) PO daily 2017 Inactive amoxicillin 500 mg tablet RxNorm: 266185 1 Tablet(s) PO Q12H 2017 Inactive albuterol sulfate 2.5 mg/3 mL (0.083 %) solution for nebulization RxNorm: 833414 1 Vial INH QID 2018 Inactive 60/box. Please do not fill early. Please do not auto refill. Prozac 10 mg capsule RxNorm: 279192 1 Capsule(s) PO daily 2017 Inactive buspirone 7.5 mg tablet RxNorm: 029211 1 Tablet(s) PO BID 018 2018 Inactive gabapentin 300 mg capsule RxNorm: 345455 1 Capsule(s) PO TID as needed 2018 Inactive hydrochlorothiazide 12.5 mg tablet RxNorm: 073345 1 Tablet(s) PO QAM 2018 Inactive ranitidine 150 mg tablet RxNorm: 142838 1 Tablet(s) PO BID 2018 Inactive Macrobid 100 mg capsule RxNorm: 119068 1 Capsule(s) PO Q12H 018 2017 Inactive Singulair 10 mg tablet RxNorm: 102921 1 Tablet(s) PO daily 018 2018 Inactive Ventolin HFA 90 mcg/actuation aerosol inhaler RxNorm: 8216041 2 Puff(s) INH QID 018 2018 Inactive Singulair 10 mg tablet RxNorm: 820631 1 Tablet(s) PO daily 018 2017 Inactive buspirone 7.5 mg tablet RxNorm: 961547 1 Tablet(s) PO BID 018 2017 Inactive Prozac 10 mg capsule RxNorm: 724440 1 Capsule(s) PO daily 018 2017 Inactive diclofenac sodium 75 mg tablet,delayed release RxNorm: 046689 1 Tablet(s) PO BID 018 2017 Inactive lisinopril 2.5 mg tablet RxNorm: 852876 1 Tablet(s) PO daily 018 2017 Inactive Neilmed Pediatric Sinus Rinse Refill packet RxNorm: 1 Unit Dose NASAL PRN 018 2021 Inactive metoprolol succinate ER 50 mg tablet,extended release 24 hr RxNorm: 639173 1 Tablet(s) PO daily 018 2017 Inactive levothyroxine 50 mcg tablet RxNorm: 514931 1 Tablet(s) PO daily 018 2017 Inactive TRUEplus Lancets 30 gauge RxNorm: 1 Lancets Miscellaneous QAM 018 2017 Inactive 100/box Ventolin HFA 90 mcg/actuation aerosol inhaler RxNorm: 942741 2 Puff(s) INH QID 018 2017 Inactive Aleve 220 mg capsule RxNorm: 0557564 1 Capsule(s) PO BID 018 2018 Inactive ranitidine 150 mg tablet RxNorm: 438704 1 Tablet(s) PO BID 018 2017 Inactive gabapentin 300 mg capsule RxNorm: 192752 1 Capsule(s) PO TID as needed 018 2017 Inactive atorvastatin 20 mg tablet RxNorm: 497040 1 Tablet(s) PO QHS 018 2017 Inactive True Metrix Glucose Test Strip RxNorm: 1 Test Strips Miscellaneous [facility] 2017 Inactive 50/container Calcium 600-D3 Plus 600 mg calcium-800 unit-50 mg tablet RxNorm: 1 Tablet(s) PO daily take an additonal tablet for itching. 2017 Inactive hydrochlorothiazide 12.5 mg tablet RxNorm: 878235 1 Tablet(s) PO QAM 018 2017 Inactive Flintstones Complete (iron) 18 mg iron chewable tablet RxNorm: 1 Tablet(s) PO daily 018 2017 Inactive True Metrix Glucose Meter RxNorm: miscellaneous 019 2018 Inactive sertraline 50 mg tablet RxNorm: 364078 1 Tablet(s) PO daily 020 2019 Inactive loperamide 2 mg tablet RxNorm: 311067 oral 019 2018 Inactive d-mannose oral powder RxNorm: PO 018 2021 Inactive Symbicort 160 mcg-4.5 mcg/actuation HFA aerosol inhaler RxNorm: 1279074 2 Puff(s) INH BID 019 2018 Inactive Medication Administered No Medication Administered data Procedures Procedure Codes Date Hypertension CPT-4: HTN 08/17/2022 Admin pneumococ vac CPT-4: G0009 08/17/2022 PNEUMOCOCCAL VACC 23 JUNO IM CPT-4: 48825 08/03 Hypertension Hypertension Follow Up Plan/Lifestyle modification weight reduction, Hypertension Follow Up Plan/Lifestyle modification including reduce salt intake CPT-4: FUSTtclnse16/15/2022emmes Fany AssessmentCPT-4: DSWA04/19/2022 Patient Health QuestionnaireCPT-4: DPHQ04/19/2022nnual Wellness Visit (Subsequent Visit)CPT-4: D901849atient Health QuestionnaireCPT-4: DPHQ 10/07/2021Frailty ScreeningCPT-4: SFD05/20/2021HypertensionCPT-4: HTN04/01/2021 Tobacco Assessment/ScreeningCPT-4: TCA03/13/2021atient Health QuestionnaireCPT- 4: DPHQ03/13/2021Mini Mental State ExamCPT-4: DMMA01/29/2021nnual Wellness Visit (Subsequent Visit)CPT-4: F012073dvanced Care PlanningCPT-4: VACP 01/13/2021Fall Risk AssessmentSNOMED CT: 623355942 CPT-4: DFRA01/13/2021emmes Fany AssessmentCPT-4: DSWA12/17/2020Urinalysis, dip stickCPT-4: 866857309/24/2020Patient Health QuestionnaireCPT-4: DPHQ 08/19/2020ElectrocardiogramCPT-4: 6690599Tobacco Assessment/Screening CPT-4: TCA01/01/2020Fall Risk AssessmentSNOMED CT: 559410372 CPT-4: DFRA01/01/2020Functional AssessmentCPT-4: DFA01/01/2020Semmes Fany AssessmentCPT-4: DSWA11/28/2019Patient Health QuestionnaireCPT-4: DPHQ11/28/2019 Carmen Fany AssessmentCPT-4: DSWA10/17/2019HypertensionCPT-4: HTN10/17/[address]: 392918829 CPT-4: DFRA09/19/2019Functional AssessmentCPT-4: DFA111/20/2018Urinalysis, dip stickCPT-4: 2049864Tobacco Assessment/ScreeningCPT-4: TCA05/24/2019 Patient Health QuestionnaireCPT-4: DPHQ05/24/2019AHA/REBECCA Classification AssessmentCPT-4: DAHA04/25/2019Controlled Substance ReportCPT-4: CTRSU04/25/2019 Urinalysis, dip stickCPT-4: 6626654Urinalysis, dip stickCPT-4: 42926 03/28/20190433M4R-UrgsmixggboyteoQUD-7: 52691TmzhkyfR5C-LhqvhanfjsopkptLHD-4: 98701 KfvmavxJ6G-KzafyjbrhklctttYLS-7: 91914WjauyskI6I-NftumcgosiqohbqVRA-9: 96182 EjsucwcK3N-IbqvdmmqsbhqpgdKLM-7: 92872MmozwqwL8L-JgkxacvranzmggnTEW-9: 40951 BultekfH9O-VowtkewwtivmtqlCSN-6: 20295JqyyxkrA1H-WegqdqnacuhwkjxFDS-8: 49852 SghhysgQ5P-GpqfahrathghmlvJCM-6: 59364HesxpcwX6H-RchuqsgtvfwgjmtFYM-3: [address]: 152403572 CPT-4: N44Cvuumvn Vital Signs Date Vital 08/17/2022 Blood Pressure 1: 126/82 Code: 8480-6 BMI: 53.9 Code: 77817-0 Heart Rate 1: 81 bpm Height: 4'11 Code: 8302-2 Respiratory Rate: 16 bpm SpO2: 99% Temperature: 36.3 (C) / 97.3 (F) Weight: 266 lbs 12 oz Code: 50888-1 Reason For Visit Reason For Visit Effective Dates Notes sores 08/17/2022 diabetes mellitus 08/17/2022 hypertension 08/17/2022 Interim health update 08/17/2022 Encounters Encounter Performer Location Location Address Codes Mag[place] e ([id number]) HOME VISIT EST CAESAR HUFF Diagnosis: Type 2 diabetes mellitus with peripheral neuropathy[ICD10: E11.42] Diagnosis: Hypertension[ICD10: I10] Diagnosis: Adult BMI 50.0-59.9 kg/sq m[ICD10: Z68.43] Diagnosis: Fungal infection of skin[ICD10: B36.9] Diagnosis: Encounter for immunization[ICD10: Z23] Diagnosis: Influenza vaccine refused[ICD10: Z28.21]Anna Bourgeois [address] [address]BYR-1: 34287 08/17/2022 Plan of Care Planned Activity Notes Codes Status Date Visit Plan: I10 Essential (prima ry) hypertension, BP stable, will continue lisinopril, HCTZ 07/02/20 Echo: EF 60%, mild conc. LVH 05/14/20 EKG: NSR 05/14/20 Noct. Pulse Ox.: 7 min. < 89% SpO2 continue with [employer] Josh Simon MD G47.33 Obstructive sleep apnea (adult), J45.909 Asthma breathing stable CPAP use continues-was changed to nasal pillow mask at last pulmonogy visit, patient feels this has been helpful continue utilization of Symbicort, albuterol via neb. or MDI q 4 hrs. prn dyspnea, continue with [employer] Work[employer] Jose BOWMAN last visit 05/31/2022-visit note reviewed previously E11.42 Type 2 diabetes mellitus with peripheralneuropathy, Z68.43 Adult BMI 50.0-59.9 kg/sq m stable glucose monitor range 99-143 - testing bid FBS 102 this morning continue Ozempic 1mg per week and gabapentin 06/23/2022 Hgb A1C 5.8, GFR 94 11/02/21 HgbA1C 5.6, GFR >100 continue with Kerrie Pandya OD at [facility] (06/30/21) Discussed benefits of weight loss clinic-patient agreeable referral sent-no longer interested in following up with this provider- approximately 7 pound weight loss-continues to exercise (does stairs a few times a day), portion control, feels stopping quetiapine has helped as well E03.9 Hypothyroidism 06/23/2022 TSH 2.130, continue levothyroxine F33.9-296.30 Major depression, recurrent continue taking sertraline, buspirone Seroquel complete and has been replaced with Rexulti continue with [facility] in [place] B36.9-111.9 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 193 patient has re-started atorvastatin per prior visit recommendations continue Mediterranean style eating E55.9 Vitamin D deficiency begin cholecalciferol 11/02/21 vit. D 20.4, PTH 133 (>88), B12 184 K21.9 GERD (gastroesophageal reflux disease) continue omeprazole, [...] 5 times per day continue with Urologist Z00.00-V70.9 (Z00.00-V70.9) Encounter for general adult medical examination without abnormal findings 02/11/22 AWV complete diclogenac top gel 1% qid prn arthralgia/myalgia 08/17/2022atient Education: OkopjwzbtfpxTypnkjinp12/15/2022atient Education: Patient Medication JvxirtnHzyzgpzff50/15/2022atient Education: Diabetes Dpjhpmcnq99/15/2022atient Education: DldnquxMqojzcouh84/15/2022atient Education: VIS - Pneumo (23 Valent)Qtdmxzhpp07/15/2022ppointment: Anna Culver WPtel: [address] [place] [address] [id number]: Chivo Bishop WPtel: [address] [address] [id number]: Chivo Bishop WPtel: [phone] [place] [address] [id number]: Mikey Nair WPtel: [address] [facility] [id number]: Chivo Bishop WPtel: [phone] [place] [address] [id number]: Chivo Bishop WPtel: [address] [place] [address] [id number]: Chivo Bishop WPtel: [phone] [place] [address] USETV111/11/2020ppointment: Chivo Bishop WPtel: [address] [place] [address] USETV110/13/2020ppointment: Chivo Bishop WPtel: [address] [place] [address] USETV1ppointment: Chivo Bishop WPtel: [address] [place] [address] AGTOKR5306/10/2021ppointment: Anna Culver WPtel: [phone] [place] [address] USETV06/02/2021ppointment: Chivo Bishop WPtel: [address] [place] [address] USETV05/20/2021ppointment: Anna Culver WPtel: [phone] [place] [address] USETV04/28/2021ppointment: Chivo Bishop WPtel: [phone] [facility] [address] [place] [address] USETV04/15/2021ppointment: Anna Culver WPtel: [phone] [place] [address] [place] [address] [id number]: Anna Culver WPtel: [phone] [place] [address] [place] [address] USETV03/24/2021ppointment: Anna Culver WPtel: [phone] [place] [address] USETV03/13/2021ppointment: Anna Culver WPtel: [phone] [place] [address] [id number]: Chivo Bishop WPtel: [phone] [place] [address] [place] [address] [id number]: Anna Culver WPtel: [phone] [place] [address] [place] [address] USET01/13/2021ppointment: Anna Culver WPtel: [phone] [place] [address] [place] [address] [id number]: Chivo Bishop WPtel: [phone] [place] [address] [place] [address] USETV11/28/2020ppointment: Anna Culver WPtel: [phone] [place] [address] [place] [address] USETV11/24/2020ppointment: Anna Culver WPtel: [phone] [place] [address] [place] [address] [id number]: Anna Culver WPtel: [phone] [place] [address] [place] [address] [id number]/Appointment: Anna Culver WPtel: [phone] [place] [address] [address] [place] [address] USETV110/26/2019Appointment: Anna Culver WPtel: [phone] [place] [address] [place] [address] USETV110/19/2019Appointment: Anna Culver WPtel: [address] [place] [address] [place] [address] USETV1Appointment: Anna Culver WPtel: [phone] [place] [address] USETV1Appointment: Gianna Birmingham MCtel: [address] [facility] 100 [id number]: Anna Culver WPtel: [phone] [place] [address] [id number]: Anna Culver WPtel: [phone] [place] [address] MAT62288/09/2020Appointment: Anna Culver WPtel: [phone] [place] [address] [id number]/Appointment: Anna Culver WPtel: [phone] [place] [address] [place] [address] [id number]/Appointment: Anna Culver WPtel: [phone] [place] [address] [place] [address] [id number]/Appointment: Anna Culver WPtel: [phone] [place] [address] [place] [address] [id number]/Appointment: Anna Culver WPtel: [phone] [place] [address] [place] [address] HHS40248/31/2020Appointment: Anna Culver WPtel: [address] [place] [address] [address] [place] [address] [id number]: Anna Culver WPtel: [address] [place] [address] [address] [place] [address] [id number]: Anna Culver WPtel: [address] [place] [address] [place] [address] [id number]: Sudha Hernadez WPtel: [address] [facility] [address] [id number]: Sudha Hernadez WPtel: [address] [facility] [id number]: Charlene Oropeza WPtel: [address] [facility] [address] [id number]: Enedelia Delgado45Appointment: Charlene Oropeza WPtel: [address] [facility] [id number]: Daltonrichsang Rasta WPtel: [address] [facility] [address] [id number]: Hasenthilricht, Rasta WPtel: [address] [facility] [id number]: Hadeborah Rasta WPtel: [address] [facility] [address] [id number]: Javy Rasta WPtel: [address] [facility] [address] [id number]: Pending Gynecology Referral InformationReferral ProcessedReferral: Pending Pulmonology Referral InformationReferralProcessed Referral: Pending Psychiatry Referral InformationReferralInitiatedReferral: Pending Respiratory Services Referral InformationReferralInitiatedReferral: Pending Ophthalmology Referral InformationReferralInitiatedReferral: [facility] WPtel: [address] [facility] [address] [place] USWriter placed a call out to the patient to notify her that it has been recommended that she be seenby a urologist. Patient agreed to be seen, does not have a provider of choice and no transportationissues. Hot Stick Worker faxed referral and clinical notes to [facility] in [place], [place] near the patient's home. Patient to [...] seen and prefers a provider in the [place] or [place] area. Hot Stick Worker placed a call out to everyone listed in the area and the only location that was able to accept the patient's insurance was [address] [id number] and spoke with Maylin. Maylin asked that the patient's referral, face sheet and visit notes be faxed to . Hot Stick Worker faxed over requested documents. Patient appointment confirmation letter generated and mailed to her home address. Patient to call to schedule an appointment.ProcessedReferral: [facility] WPtel: [address] [facility] [address] [id number] USPatient notified that it has been advised that she be seen by Neurology. Patient agreed to be seen and prefers to be seen by a provider in the [place], [place] area. Patient denies any concerns with transportation, and prefers to schedule her own appointment. Hot Stick Worker placed a call out to [facility] [...] Date will stratify as moderate ri sk and plan follow up visit in 6 weeks. Patient aware and agreeable with plan . I10 Essential (primary) hypertension, BP stable, will continue lisinopril, HCTZ; 07/02/20 Echo: EF 60%, mild conc. LVH; 05/14/20 EKG: NSR; 05/14/20 Noct. Pulse Ox.: 7 min. < 89% SpO2; continue with [facility] [employer] Josh Simon MD; G47.33 Obstructive sleep apnea (adult), J45.909 Asthma breathing stable CPAP use continues-was changed to nasal pillow mask at last pulmonogy visit, patient feels this hasbeen helpful continue utilization of Symbicort, albuterol via neb. or MDI q 4 hrs. prn dyspnea, continue with [employer] Work[employer] Jose BOWMAN; last visit 05/31/2022-visit note reviewed previously E11.42 Type 2 diabetes mellitus with peripheral neuropathy, Z68.43 Adult BMI 50.0-59.9 kg/sq m stable glucose monitor range 99-143 - testing bid; FBS 102 this morning continue Ozempic 1mg per week and gabapentin; 06/23/2022 Hgb A1C 5.8, GFR 94; 11/02/21 HgbA1C 5.6, GFR >100; continue with Kerrie Pandya OD at [facility] (06/30/21); Discussed benefits of weight loss clinic-patient agreeable referral sent-no longer interested in following up with this provider- approximately 7 pound weight loss-continues to exercise (does stairs a few times a day), portion control, feels stopping quetiapine has helped as well E03.9 Hypothyroidism 06/23/2022 TSH 2.130, continue levothyroxine; F33.9-296.30 Major depression, recurrent continue taking sertraline, buspirone; Seroquel complete and has been replaced with Rexulti continue with [employer] [facility] in [place]; B36.9-111.9 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 193 patient has re-started atorvastatin per prior visit recommendations continue Mediterranean style eating; E55.9 Vitamin D deficiency begin cholecalciferol; 11/02/21 vit. D 20.4, PTH 133 (>88), B12 184; K21.9 GERD (gastroesophageal reflux disease) continue omeprazole, [...] 5 times per day; continue with Urologist; Z00.00-V70.9 (Z00.00-V70.9) Encounter for general adult medical examination without abnormal findings 02/11/22 AWV complete diclogenac top gel 1% qid prn arthralgia/myalgia; 08/17/2022 Medical Equipment No Medical Equipment data Advance Directives No Advance Directive data
--- OUTSIDE RECORDS SUMMARY | 2023-12-07 02:21 | XMS_ITS | CCD ---
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 Name Role Phone Palomo KING, Anna Primary Care Provider Unav ailable Unavailable Chronic Care Management Unavaila ble Summary Purpose DataExchange Insurance Providers Payer name Policy type / Coverage type Covered republican ID Effective Begin Date Effective End Date [employer]KI [employer] [facility] [id number] Unknown Unknown Family history Mother Diagnosis Age [...] 05/31/2018 Education level Unknown Some High School 10th05/31/20181891ClyxoczzdfZzawujsPuvnkgrckc41/29/2018Tobacco historySNOMED CT: [id number] never smoked or chewed [id number]/31/2018Alcohol historySNOMED CT: 886589169Bsjgd drinks [id number]/31/2018Has the patient ever used illegal drugs? UnknownHas never used illegal drugs05/31/2018DNR Order/ Advanced Directive UnknownFull Code05/31/2018 Allergies, Adverse Reactions, Alerts Substance Reaction Codes Entered Date Inactivated Date Status OxyContin itch, RxNorm: 114225 01/13/2021 No Inactive Da te Active *No known food allergies Qvyroyx3409/06/2018No Inactive DateActiveMethylprednisolonehivesRxNorm: 6902 09/06/2018No Inactive DateActive Problems Condition Codes Effective Dates Condition St atus Adult BMI 50.0-59.9 kg/sq m ICD-10: Z68. 43 ICD-9: V85.43005/30/2018ActiveEncounter for immunizationICD-10: Z23 ICD-9: V04.8111/ctiveFungal infection of skinICD-10: B36.9 ICD-9: 111.911/ctiveHypertensionICD-10: I10 ICD-9: 401.903/ctiveInfluenza vaccine refusedICD-10: Z28.21 ICD-9: V64.0609/ctiveType 2 diabetes mellitus with peripheral neuropathy ICD-10: E11.42 ICD-9: 250.6002/ActiveAsthmaICD-10: J45.909 ICD-9: 493.9011/03/2018ActiveGERD (gastroesophageal reflux disease)ICD-10: K21.9 ICD-9: 530.8112ActiveMajor depression, recurrentICD-10: F33.9 ICD-9: 296.3009/ctiveObstructive sleep apnea (adult) (pediatric)ICD-10: G47.33 ICD-9: 327.2309/ActivePost-traumatic stress disorder, unspecifiedICD-10: F43.10 ICD-9: 309.8112/01/2018ActiveAdjustment disorder with mixed anxiety and depressed moodICD-10: F43.23 ICD-9: 309.2812ActiveAnkle sprainICD-10: S93.409A ICD-9: 845.0010/ctiveHypertensive heart diseaseICD-10: I11.9 ICD-9: 402.9003/ctiveHypothyroidICD-10: E03.9 ICD-9: 244.912/01/2018ActiveAbscessICD-10: L02.91 ICD-9: 682.907/ctiveHyperlipidemia, mixedICD-10: E78.2 ICD-9: 272.ctive(Z00.00-V70.9) Encounter for general adult medical examination without abnormal findingsICD-10: Z00.00 ICD-9: V70.905/ctiveAllergic rhinitisICD-10: J30.9 ICD-9: 477.903/03/2022ActiveEdema, unspecifiedICD-10: R60.9 ICD-9: 782.310/06/2018ActiveVitamin D deficiencyICD-10: E55.9 [...] ICD-9: V72.8503/ResolvedEncounter for screening, unspecifiedICD-10: Z13.9 ICD-9: V82.912ResolvedFamily history of seizuresICD-10: Z84.89 ICD-9: V19.807/1ResolvedHyperlipidemia, unspecifiedICD-10: E78.5 ICD-9: 272.408/ResolvedLong term (current) use of non-steroidal anti- inflammatories (NSAID)ICD-10: Z79.1 ICD-9: V58.6409ResolvedPatient Not SeenICD-10: UXZ.01 ICD-9: XZ0.107ResolvedPatient not seenICD-10: UXZ.01 ICD-9: UXZ.0112/1ResolvedUpper respiratory infectionICD-10: J06.9 ICD-9: 465.908/esolvedSyncope and collapseICD-10: R55 ICD-9: 780.203ActiveHistory of bladder surgeryICD-10: Z98.890 ICD-9: V45.8904/1ActiveUrinary retention with incomplete bladder emptying ICD-10: R33.9 ICD-9: 788.21041ActiveApnea, not elsewhere classifiedICD-10: R06.81 ICD-9: 786.0305/10/2018InactiveChest pain, unspecifiedICD-10: R07.9 ICD-9: 786.5002/InactiveChronic kidney disease, unspecifiedICD-10: N18.9 ICD-9: 585.909/InactiveEncounter for immunizationICD-10: Z23 ICD-9: V03.907/InactiveEncounter for preprocedural cardiovascular examinationICD-10: Z01.810 ICD-9: V72.8106InactiveHeadacheICD-10: R51 ICD-9: 784.001/10/2018InactiveOther termite 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 (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ICD-10: Z79.899 ICD-9: V58.6907/InactiveType 2 diabetes mellitus without complications ICD-10: E11.9 ICD-9: 250.0001/10/2018InactiveWheezingICD-10: R06.2 ICD-9: 786.0711/03/2018InactiveAbnormal urine findingICD-10: R82.90 ICD-9: 791.912/ResolvedAbrasion of toeICD-10: S90.416A ICD-9: 917.005/ResolvedPink eyeICD-10: H10.029 ICD-9: 372.0303ResolvedRight wrist painICD-10: M25.531 ICD-9: 719.4308/09/2020ResolvedSinusitisICD-10: J32.9 ICD-9: 473.902/02/2020ResolvedSuperficial burn of multiple sites of right hand, subsequent encounterICD-10: T23.191D ICD-9: V58.8902/1ResolvedUrinary tract infectionICD-10: N39.0 ICD-9: 599.012ResolvedPolyneuropathy, unspecifiedICD-10: G62.9 ICD-9: 356.908/ActiveFecal incontinenceICD-10: R15.9 ICD-9: 787.6003/ActiveMixed incontinenceICD-10: N39.46 ICD-9: 788.3308/ActiveAbnormal electrocardiogram [ECG] [EKG]ICD-10: R94.31 ICD-9: 794.3108Active Medications Medication Codes Instructions Start Date Stop Date Status Fill Instructions Alcohol Prep Pads RxNorm: 502193 USE EACH MORNING 022 2021 Inactive E11.42 clotrimazole 1 % topical cream RxNorm: 105598 Apply 1 Application Topical two times a day as needed apply to affected area(s) twice daily until healed 2021 Inactive Victoza 2-Sebastián 0.6 mg/0.1 mL (18 mg/3 mL) subcutaneous pen injector RxNorm: 437571 Inject 0.6-1.8 Milligram(s) Subcutaneous once a week Inject 0.6mg/0.1ml week one, 1.2mg/0.2ml week two, 1.8/0.3ml weekly thereafter 2021 Inactive ibuprofen 800 mg tablet RxNorm: 313844 Take 1 Tablet(s) Oral Q8H as needed for pain take with food No Stop Date Active Ozempic 1 mg/dose (4 mg/3 mL) subcutaneous pen injector RxNorm: 3811185 Take 1 Unit Dose Subcutaneous QWeek Tuesday 022 2021 Inactive lisinopril 2.5 mg tablet RxNorm: 663162 Take 1 Tablet(s) Oral every day 022 2021 Inactive lisinopril 2.5 mg tablet RxNorm: 767874 Take 1 Tablet(s) Oral every day 022 2022 Inactive hydrochlorothiazide 25 mg tablet RxNorm: 168528 Take 1 Tablet(s) Oral every day 022 2021 Inactive Ozempic 1 mg/dose (4 mg/3 mL) subcutaneous pen injector RxNorm: 8871504 Take 1 Unit Dose Subcutaneous QWeek 022 2021 Inactive famotidine 20 mg tablet RxNorm: 152428 Take 1 Tablet(s) Oral every morning 2021 Inactive levothyroxine 50 mcg tablet RxNorm: 454003 Take 1 Tablet(s) Oral every day 022 2021 Inactive atorvastatin 20 mg tablet RxNorm: 219343 Take 1 Tablet(s) Oral every night at bedtime 022 2021 Inactive Cleocin T 1 % lotion RxNorm: 579182 Take 2 Gram(s) Topical every day 07/24/11 Inactive Cleocin T 1 % lotion RxNorm: 078028 Take 2 Gram(s) Topical every day 2021 Inactive Ozempic 1 mg/dose (4 mg/3 mL) subcutaneous pen injector RxNorm: 9405977 Take 1 Unit Dose Subcutaneous QWeek 022 2021 Inactive Ozempic 0.25 mg or 0.5 mg (2 mg/1.5 mL) subcutaneous pen injector RxNorm: 1521607 INJECT 0.5 MGS SUBCUTANEOUSLY EVERY WEEK 2021 Inactive omeprazole 20 mg capsule,delayed release RxNorm: 754653 Take 1 Capsule(s) Oral every evening 2021 Inactive levothyroxine 50 mcg tablet RxNorm: 519590 Take 1 Tablet(s) Oral every day 2021 Inactive atorvastatin 20 mg tablet RxNorm: 639435 Take 1 Tablet(s) Oral every night at bedtime 2021 Inactive This refill negates all other refills of this medication lisinopril 2.5 mg tablet RxNorm: 822863 Take 1 Tablet(s) Oral every day 2021 Inactive gabapentin 300 mg capsule RxNorm: 833603 Take 1 Capsule(s) Oral three times a day 2021 Inactive montelukast 10 mg tablet RxNorm: 596805 Take 1 Tablet(s) Oral every day 2021 Inactive cholecalciferol (vitamin D3) 50 mcg (2,000 unit) tablet RxNorm: 286538 Take 1 Tablet(s) Oral every day 2022 Inactive Myrbetriq 50 mg tablet,extended release RxNorm: 2124873 1 Tablet(s) Oral every day No Stop Date Active Ozempic 0.25 mg or 0.5 mg (2 mg/1.5 mL) subcutaneous pen injector RxNorm: 9411579 inject 0.5 milligrams subcutaneously every week 2021 Inactive Ozempic 0.25 mg or 0.5 mg (2 mg/1.5 mL) subcutaneous pen injector RxNorm: 0222673 Take 0.5 Capsule(s) Injection once a week 2021 Inactive omeprazole 20 mg capsule,delayed release RxNorm: 860068 Take 1 Capsule(s) Oral every evening 2020 Inactive Ozempic 0.25 mg or 0.5 mg (2 mg/1.5 mL) subcutaneous pen injector RxNorm: 1450268 Take 0.25 Milligram(s) Subcutaneous once a week 2021 Inactive Easy Touch Alcohol Prep Pads RxNorm: 107214 USE DIRECTED EACH MORNING 2021 Inactive Probiotic 10 billion cell capsule RxNorm: 8511941 Take 1 Capsule(s) Oral every day 2021 Inactive levothyroxine 50 mcg tablet RxNorm: 126774 Take 1 Tablet(s) Oral every day 2020 Inactive Acid Cylinder Devalver (famotidine) 20 mg tablet RxNorm: 190172 Take 1 Tablet(s) Oral every morning 2020 Inactive Heartburn Relief (famotidine) 10 mg tablet RxNorm: 521980 Take 1 Tablet(s) Oral QAM 2020 Inactive levothyroxine 50 mcg tablet RxNorm: 135022 Take 1 Tablet(s) Oral QD 2020 Inactive Singulair 10 mg tablet RxNorm: 108067 TAKE (1) TABLET BY MOUTH DAILY 2020 Inactive metformin 1,000 mg tablet RxNorm: 967930 1 Tablet(s) Oral two times a day 2021 Inactive lisinopril 2.5 mg tablet RxNorm: 600101 Take 1 Tablet(s) Oral every day 2020 Inactive hydrochlorothiazide 25 mg tablet RxNorm: 406401 Take 1 Tablet(s) Oral every day 021 2020 Inactive ondansetron 4 mg disintegrating tablet RxNorm: 549511 1 Tablet(s) Oral two times a day 021 2020 Inactive Sudafed 12 Hour 120 mg tablet,extended release RxNorm: 3514293 TAKE 1 TABLET BY MOUTH EVERY 12 HOURS NEEDED 021 2021 Inactive Heartburn Relief (famotidine) 10 mg tablet RxNorm: 468437 Take 1 Tablet(s) Oral every morning 021 2020 Inactive omeprazole 20 mg capsule,delayed release RxNorm: 982978 1 Capsule(s) Oral every evening 021 2020 Inactive sertraline 100 mg tablet RxNorm: 175932 2 Tablet(s) Oral every day 021 2020 Inactive levothyroxine 50 mcg tablet RxNorm: 400078 TAKE (1) TABLET BY MOUTH DAILY 021 2020 Inactive metformin 500 mg tablet RxNorm: 754595 1 Tablet(s) Oral two times a day take with 500mg to equal 1000mg 021 2020 Inactive gabapentin 300 mg capsule RxNorm: 299247 TAKE 1 CAPSULE BY MOUTH THREE TIMES A DAY 021 2020 Inactive lisinopril 2.5 mg tablet RxNorm: 863786 TAKE 1 TABLET BY MOUTH DAILY 021 2020 Inactive gabapentin 300 mg capsule RxNorm: 400901 TAKE 1 CAPSULE BY MOUTH THREE TIMES A DAY 021 2020 Inactive Singulair 10 mg tablet RxNorm: 615654 TAKE (1) TABLET BY MOUTH DAILY 021 2020 Inactive metformin 1,000 mg tablet RxNorm: 944066 1 Tablet(s) Oral two times a day 021 2020 Inactive atorvastatin 40 mg tablet RxNorm: 752973 1 Tablet(s) Oral every day 021 2020 Inactive omeprazole 20 mg capsule,delayed release RxNorm: 985579 1 Capsule(s) Oral every evening 2020 Inactive famotidine 10 mg tablet RxNorm: 557735 1 Tablet(s) Oral every morning 2020 Inactive Alcohol Prep Pads RxNorm: 519476 USE EACH MORNING 2020 Inactive omeprazole 20 mg capsule,delayed release RxNorm: 134812 1 Capsule(s) Oral two times a day 2021 Inactive omeprazole 20 mg capsule,delayed release RxNorm: 943262 TAKE 1 CAPSULE BY MOUTH EVERY DAY 2021 Inactive Macrobid 100 mg capsule RxNorm: 700430 1 Capsule(s) Oral every 12 hours with food 2020 Inactive omeprazole 20 mg capsule,delayed release RxNorm: 396558 1 Capsule(s) Oral two times a day 2021 Inactive metformin 1,000 mg tablet RxNorm: 844288 1 Tablet(s) Oral two times a day 2020 Inactive start on September 11, 2020 metformin 500 mg tablet RxNorm: 210124 1 Tablet(s) Oral two times a day take with 500mg to equal 1000mg 2019 Inactive gabapentin 300 mg capsule RxNorm: 720831 TAKE 1 CAPSULE BY MOUTH THREE TIMES DAILY 2020 Inactive cetirizine 10 mg tablet RxNorm: 2293053 TAKE (1) TABLET BY MOUTH DAILY 2020 Inactive metformin 500 mg tablet RxNorm: 600625 1 Tablet(s) Oral two times a day 2019 Inactive loperamide 2 mg tablet RxNorm: 719464 1 Tablet(s) Oral as needed take one tablet after each loose stool, maximum of 8 tablets in 24 hours 2021 Inactive Sudafed 12 Hour 120 mg tablet,extended release RxNorm: 8240562 TAKE 1 TABLET BY MOUTH EVERY 12 HOURS NEEDED 2019 Inactive hydrochlorothiazide 25 mg tablet RxNorm: 018953 TAKE (1) TABLET BY MOUTH EVERY DAY 020 2019 Inactive omeprazole 20 mg capsule,delayed release RxNorm: 175629 TAKE 1 CAPSULE BY MOUTH EVERY DAY 020 2020 Inactive metformin 500 mg tablet RxNorm: 408806 1 Tablet(s) Oral every day 020 2019 Inactive True Metrix Glucose Test Strip RxNorm: 1 Test Strips Miscellaneous two times a day as needed No Stop Date Active metformin 500 mg tablet RxNorm: 797499 1 Tablet(s) Oral every day 020 2019 Inactive diclofenac sodium 75 mg tablet,delayed release RxNorm: 628656 1 Tablet(s) PO BID 2021 Inactive This refill negates all other refills of this medication Sudafed 12 Hour 120 mg tablet,extended release RxNorm: 2183170 TAKE 1 TABLET BY MOUTH EVERY 12 HOURS NEEDED 020 2019 Inactive True Metrix Glucose Test Strip RxNorm: 1 Test Strips Miscellaneous every morning 020 2019 Inactive 100/container True Metrix Glucose Test Strip RxNorm: 1 Test Strips Miscellaneous QA 020 2019 Inactive 100/container loperamide 2 mg tablet RxNorm: 428371 1 Tablet(s) Oral as needed take one tablet after each loose stool, maximum of 8 tablets in 24 hours 020 2019 Inactive cetirizine 10 mg tablet RxNorm: 3911372 1 Tablet(s) PO daily 020 2019 Inactive loperamide 2 mg tablet RxNorm: 796924 1 Tablet(s) Oral as needed take one tablet after each loose stool, maximum of 8 tablets in 24 hours 020 2019 Inactive quetiapine 100 mg tablet RxNorm: 098425 1 Tablet(s) Oral every night at bedtime 020 2019 Inactive levothyroxine 50 mcg tablet RxNorm: 516258 1 Tablet(s) PO daily 2020 Inactive gabapentin 300 mg capsule RxNorm: 424555 1 Capsule(s) PO TID 2019 Inactive levothyroxine 50 mcg tablet RxNorm: 647036 1 Tablet(s) PO daily 2019 Inactive lisinopril 2.5 mg tablet RxNorm: 994776 1 Tablet(s) PO daily 2020 Inactive gabapentin 300 mg capsule RxNorm: 722215 1 Capsule(s) PO TID 2019 Inactive cetirizine 10 mg tablet RxNorm: 2711142 1 Tablet(s) PO daily 2019 Inactive Singulair 10 mg tablet RxNorm: 111524 1 Tablet(s) PO daily 2020 Inactive gentamicin 0.3 % eye drops RxNorm: 997743 1 Drop(s) ophthalmic (eye) four times a day 2019 Inactive gentamicin 0.3 % eye drops RxNorm: 300910 1 Drop(s) ophthalmic (eye) four times a day 2019 Inactive gentamicin 0.3 % eye drops RxNorm: 366849 1 Drop(s) ophthalmic (eye) four times a day 2019 Inactive hydrochlorothiazide 25 mg tablet RxNorm: 906956 1 Tablet(s) Oral every day 2019 Inactive Sudafed 12 Hour 120 mg tablet,extended release RxNorm: 1113436 TAKE (1) TABLET BY MOUTH EVERY 12 HOURS NEEDED 2019 Inactive loperamide 2 mg tablet RxNorm: 665810 1 Tablet(s) Oral as needed take one tablet after each loose stool, maximum of 8 tablets in 24 hours 020 2019 Inactive loperamide 2 mg tablet RxNorm: 510470 1 Tablet(s) Oral as needed take one tablet after each loose stool, maximum of 8 tablets in 24 hours 2019 Inactive atorvastatin 40 mg tablet RxNorm: 045159 1 Tablet(s) Oral every day 020 2020 Inactive quetiapine 100 mg tablet RxNorm: 762494 1 Tablet(s) Oral every night at bedtime 2019 Inactive sertraline 100 mg tablet RxNorm: 262105 1 Tablet(s) Oral 2019 Inactive omeprazole 20 mg capsule,delayed release RxNorm: 332666 1 Capsule(s) Oral every day 2019 Inactive amoxicillin 250 mg capsule RxNorm: 921785 1 Capsule(s) Oral three times a day 2019 Inactive multivitamin with iron-mineral tablet RxNorm: 1 Tablet(s) Oral every day 2021 Inactive cetirizine 10 mg tablet RxNorm: 6008742 1 Tablet(s) PO daily 2019 Inactive This refill negates all other refills of this medication. Please do not auto refill Singulair 10 mg tablet RxNorm: 091731 1 Tablet(s) PO daily 2019 Inactive This refill negates all other refills of this medication gabapentin 300 mg capsule RxNorm: 923676 1 Capsule(s) PO TID 2019 Inactive lisinopril 2.5 mg tablet RxNorm: 795717 1 Tablet(s) PO daily 2019 Inactive levothyroxine 50 mcg tablet RxNorm: 715703 1 Tablet(s) PO daily 2019 Inactive This refill negates all other refills of this medication hydrochlorothiazide 25 mg tablet RxNorm: 803926 1 Tablet(s) Oral every day 2019 Inactive fenugreek seed extract 500 mg capsule RxNorm: 1 Capsule(s) Oral three times a day 020 2021 Inactive Alcohol Prep Pads RxNorm: 380809 1 Patch TOP QAM 2020 Inactive loperamide 2 mg tablet RxNorm: 025361 1 Tablet(s) Oral as needed take one [...] 2019 Inactive hydrochlorothiazide 25 mg tablet RxNorm: 839162 1 Tablet(s) Oral every day 2019 Inactive Sudafed 12 Hour 120 mg tablet,extended release RxNorm: 2674900 1 Tablet(s) Oral every 12 hours as needed 2018 Inactive omeprazole 20 mg capsule,delayed release RxNorm: 046005 1 Capsule(s) Oral every day 2019 Inactive Sudafed 12 Hour 120 mg tablet,extended release RxNorm: 6053823 1 Tablet(s) Oral every 12 hours as needed 2018 Inactive pantoprazole 40 mg tablet,delayed release RxNorm: 932117 1 Tablet(s) Oral every day 2018 Inactive discontinue any other H2Blkr. and PPI albuterol sulfate 2.5 mg/3 mL (0.083 %) solution for nebulization RxNorm: 002814 1 Vial Inhalation every four hours as needed as needed for dyspnea 2019 Inactive 60/box. This refill negates all other refills of this medication. Please do not fill early. Please do not auto refill. Symbicort 160 mcg-4.5 mcg/actuation HFA aerosol inhaler RxNorm: 0399245 2 Puff(s) INH BID No Stop Date Active Alcohol Prep Pads RxNorm: 430512 1 Patch TOP QAM 019 2019 Inactive Ventolin HFA 90 mcg/actuation aerosol inhaler RxNorm: 607418 2 Puff(s) INH QID 019 2019 Inactive Please do not fill early. Please do not auto refill. This refill negates all other refills of this medication True Metrix Glucose Test Strip RxNorm: 1 Test Strips Miscellaneous QA 019 2019 Inactive 100/container atorvastatin 40 mg tablet RxNorm: 010048 1 Tablet(s) Oral every day 019 2019 Inactive buspirone 7.5 mg tablet RxNorm: 039973 1 Tablet(s) PO BID 019 2020 Inactive This refill negates all other refills of this medication hydrochlorothiazide 12.5 mg tablet RxNorm: 275029 1 Tablet(s) PO QAM 019 2019 Inactive levmetamfetamine 50 mg nasal inhaler RxNorm: 1 Unit(s) NASAL Q3-4H Do not use more than every 3 hours or 8 times/24hours 019 2021 Inactive Please do not auto refill. This refill negates all other refills of this medication Ventolin HFA 90 mcg/actuation aerosol inhaler RxNorm: 193397 2 Puff(s) INH QID 019 2018 Inactive Please do not fill early. Please do not auto refill. This refill negates all other refills of this medication Singulair 10 mg tablet RxNorm: 569378 1 Tablet(s) PO daily 019 2019 Inactive This refill negates all other refills of this medication cetirizine 10 mg tablet RxNorm: 8071620 1 Tablet(s) PO daily 019 2019 Inactive This refill negates all other refills of this medication. Please do not auto refill levothyroxine 50 mcg tablet RxNorm: 029307 1 Tablet(s) PO daily 019 2019 Inactive This refill negates all other refills of this medication diclofenac sodium 75 mg tablet,delayed release RxNorm: 537156 1 Tablet(s) PO BID 019 2019 Inactive This refill negates all other refills of this medication ranitidine 150 mg tablet RxNorm: 418340 1 Tablet(s) PO BID 019 2018 Inactive This refill negates all other refills of this medication Calcium 600-D3 Plus (mag-zinc) 600 mg calcium-800 unit-50 mg tablet RxNorm: 1 Tablet(s) PO daily take an additonal tablet for itching. 019 2018 Inactive This refill negates all other refills of this medication albuterol sulfate 2.5 mg/3 mL (0.083 %) solution for nebulization RxNorm: 296882 1 Vial INH QID 2018 Inactive 60/box. This refill negates all other refills of this medication. Please do not fill early. Please do not auto refill. lisinopril 2.5 mg tablet RxNorm: 721409 1 Tablet(s) PO daily 019 2019 Inactive gabapentin 300 mg capsule RxNorm: 414878 1 Capsule(s) PO TID 019 2019 Inactive atorvastatin 20 mg tablet RxNorm: 285750 1 Tablet(s) PO QHS 2018 Inactive This refill negates all other refills of this medication TRUEplus Lancets 30 gauge RxNorm: 1 Lancets Miscellaneous QAM 019 2018 Inactive 100/box gabapentin 300 mg capsule RxNorm: 170467 1 Capsule(s) PO TID 019 2018 Inactive Flintstones Complete (iron) 18 mg iron chewable tablet RxNorm: 1 Tablet(s) PO daily 019 2021 Inactive This refill negates all other refills of this medication gabapentin 300 mg capsule RxNorm: 658998 1 Capsule(s) PO TID as needed 2018 Inactive True Metrix Glucose Test Strip RxNorm: 1 Test Strips Miscellaneous QA 019 2018 Inactive 100/container Alcohol Prep Pads RxNorm: 279908 1 Patch TOP [facility] 019 2018 Inactive TRUEplus Lancets 30 gauge RxNorm: 1 Lancets Miscellaneous [facility] 019 2018 Inactive 100/box lisinopril 2.5 mg tablet RxNorm: 890258 1 Tablet(s) PO daily 019 2018 Inactive ranitidine 150 mg tablet RxNorm: 361433 1 Tablet(s) PO BID 019 2018 Inactive This refill negates all other refills of this medication albuterol sulfate 2.5 mg/3 mL (0.083 %) solution for nebulization RxNorm: 266734 1 Vial INH QID 019 2018 Inactive [...] this medication gabapentin 300 mg capsule RxNorm: 646205 1 Capsule(s) PO TID as needed 019 2018 Inactive atorvastatin 20 mg tablet RxNorm: 761516 1 Tablet(s) PO QHS 019 2018 Inactive This refill negates all other refills of this medication trazodone 50 mg tablet RxNorm: 008396 1 Tablet(s) PO QHS 019 2018 Inactive This refill negates all other refills of this medication Ventolin HFA 90 mcg/actuation aerosol inhaler RxNorm: 524845 2 Puff(s) INH QID 019 2018 Inactive Please do not fill early. Please do not auto refill. This refill negates all other refills of this medication Calcium 600-D3 Plus 600 mg calcium-800 unit-50 mg tablet RxNorm: 1 Tablet(s) PO daily take an additonal tablet for itching. 019 2018 Inactive This refill negates all other refills of this medication Singulair 10 mg tablet RxNorm: 048112 1 Tablet(s) PO daily 019 2018 Inactive This refill negates all other refills of this medication buspirone 7.5 mg tablet RxNorm: 323678 1 Tablet(s) PO BID 019 2018 Inactive This refill negates all other refills of this medication diclofenac sodium 75 mg tablet,delayed release RxNorm: 929369 1 Tablet(s) PO BID 019 2018 Inactive This refill negates all other refills of this medication hydrochlorothiazide 12.5 mg tablet RxNorm: 654058 1 Tablet(s) PO QAM 019 2018 Inactive metoprolol succinate ER 50 mg tablet,extended release 24 hr RxNorm: 498580 1 Tablet(s) PO daily 019 2018 Inactive This refill negates all other refills of this medication levothyroxine 50 mcg tablet RxNorm: 342102 1 Tablet(s) PO daily 019 2018 Inactive This refill negates all other refills of this medication cetirizine 10 mg tablet RxNorm: 8481214 1 Tablet(s) PO daily 019 2018 Inactive This refill negates all other refills of this medication. Please do not auto refill Flintstones Complete (iron) 18 mg iron chewable tablet RxNorm: 1 Tablet(s) PO daily 019 2018 Inactive This refill negates all other refills of this medication buspirone 7.5 mg tablet RxNorm: 717554 1 Tablet(s) PO BID 019 2018 Inactive cetirizine 10 mg tablet RxNorm: 2507861 1 Tablet(s) PO daily 018 2018 Inactive Guaiasorb DM 10 mg-100 mg/5 mL oral liquid RxNorm: 431040 10 Milliliter(s) PO As needed every 4 hr 2018 Inactive Vicks Vaporub 4.7 %-1.2 %-2.6 % topical ointment RxNorm: 9889754 1 Application TOP TID 2018 Inactive levmetamfetamine 50 mg nasal inhaler RxNorm: 1 Unit(s) NASAL Q3-4H 2017 Inactive sertraline 50 mg tablet RxNorm: 657969 1 Tablet(s) PO daily 2018 Inactive Please note dose trazodone 50 mg tablet RxNorm: 978040 1 Tablet(s) PO QHS 2018 Inactive sertraline 50 mg tablet RxNorm: 278003 1 Tablet(s) PO daily 2017 Inactive amoxicillin 500 mg tablet RxNorm: 818435 1 Tablet(s) PO Q12H 2017 Inactive albuterol sulfate 2.5 mg/3 mL (0.083 %) solution for nebulization RxNorm: 874807 1 Vial INH QID 2018 Inactive 60/box. Please do not fill early. Please do not auto refill. Prozac 10 mg capsule RxNorm: 598473 1 Capsule(s) PO daily 2017 Inactive buspirone 7.5 mg tablet RxNorm: 908177 1 Tablet(s) PO BID 2018 Inactive gabapentin 300 mg capsule RxNorm: 890268 1 Capsule(s) PO TID as needed 2018 Inactive hydrochlorothiazide 12.5 mg tablet RxNorm: 834949 1 Tablet(s) PO QAM 2018 Inactive ranitidine 150 mg tablet RxNorm: 045427 1 Tablet(s) PO BID 2018 Inactive Macrobid 100 mg capsule RxNorm: 861652 1 Capsule(s) PO Q12H 018 2017 Inactive Singulair 10 mg tablet RxNorm: 383439 1 Tablet(s) PO daily 018 2018 Inactive Ventolin HFA 90 mcg/actuation aerosol inhaler RxNorm: 0473443 2 Puff(s) INH QID 018 2018 Inactive Singulair 10 mg tablet RxNorm: 626354 1 Tablet(s) PO daily 018 2017 Inactive buspirone 7.5 mg tablet RxNorm: 703679 1 Tablet(s) PO BID 018 2017 Inactive Prozac 10 mg capsule RxNorm: 514667 1 Capsule(s) PO daily 018 2017 Inactive diclofenac sodium 75 mg tablet,delayed release RxNorm: 551198 1 Tablet(s) PO BID 018 2017 Inactive lisinopril 2.5 mg tablet RxNorm: 587979 1 Tablet(s) PO daily 018 2017 Inactive Neilmed Pediatric Sinus Rinse Refill packet RxNorm: 1 Unit Dose NASAL PRN 018 2021 Inactive metoprolol succinate ER 50 mg tablet,extended release 24 hr RxNorm: 402755 1 Tablet(s) PO daily 018 2017 Inactive levothyroxine 50 mcg tablet RxNorm: 347030 1 Tablet(s) PO daily 018 2017 Inactive TRUEplus Lancets 30 gauge RxNorm: 1 Lancets Miscellaneous QAM 018 2017 Inactive 100/box Ventolin HFA 90 mcg/actuation aerosol inhaler RxNorm: 246913 2 Puff(s) INH QID 018 2017 Inactive Aleve 220 mg capsule RxNorm: 7188343 1 Capsule(s) PO BID 018 2018 Inactive ranitidine 150 mg tablet RxNorm: 637917 1 Tablet(s) PO BID 018 2017 Inactive gabapentin 300 mg capsule RxNorm: 269321 1 Capsule(s) PO TID as needed 018 2017 Inactive atorvastatin 20 mg tablet RxNorm: 300782 1 Tablet(s) PO QHS 018 2017 Inactive True Metrix Glucose Test Strip RxNorm: 1 Test Strips Miscellaneous QA 018 2017 Inactive 50/container Calcium 600-D3 Plus 600 mg calcium-800 unit-50 mg tablet RxNorm: 1 Tablet(s) PO daily take an additonal tablet for itching. 018 2017 Inactive hydrochlorothiazide 12.5 mg tablet RxNorm: 992309 1 Tablet(s) PO QAM 018 2017 Inactive Flintstones Complete (iron) 18 mg iron chewable tablet RxNorm: 1 Tablet(s) PO daily 018 2017 Inactive True Metrix Glucose Meter RxNorm: miscellaneous 019 2018 Inactive sertraline 50 mg tablet RxNorm: 462951 1 Tablet(s) PO daily 020 2019 Inactive loperamide 2 mg tablet RxNorm: 798155 oral 019 2018 Inactive d-mannose oral powder RxNorm: PO 018 2021 Inactive Symbicort 160 mcg-4.5 mcg/actuation HFA aerosol inhaler RxNorm: 5431780 2 Puff(s) INH BID 019 2018 Inactive Medication Administered No Medication Administered data Procedures Procedure Codes Date Hypertension CPT-4: HTN 08/17/2022 [place] Fany Assessment CPT-4: DSWA 04/02 Patient Health [...] Care Planning CPT-4: VACP [facility] 4 CPT-4: DFRA01/13/2021[place] Fany AssessmentCPT-4: DSWA12/17/2020Urinalysis, dip stickCPT-4: 357812809/24/2020Patient Health QuestionnaireCPT-4: DPHQ 08/19/2020ElectrocardiogramCPT-4: 6954343Tobacco Assessment/Screening CPT-4: TCA01/01/2020Fall Risk AssessmentSNOMED CT: 314721714 CPT-4: DFRA01/01/2020Functional AssessmentCPT-4: DFA01/01/2020[place] Fany AssessmentCPT-4: DSWA11/28/2019Patient Health QuestionnaireCPT-4: DPHQ11/28/2019 [place] Fany AssessmentCPT-4: DSWA10/17/2019HypertensionCPT-4: HTN10/17/[address]: 5[address]18470 CPT-4: DFRA09/19/2019Functional AssessmentCPT-4: DFA111/20/2018Urinalysis, dip stickCPT-4: 522356806/21/2019Tobacco Assessment/ScreeningCPT-4: TCA05/24/2019 Patient Health QuestionnaireCPT-4: DPHQ05/24/2019AHA/REBECCA Classification AssessmentCPT-4: DAHA04/25/2019Controlled Substance ReportCPT-4: CTRSU04/25/2019 Urinalysis, dip stickCPT-4: 4315009Urinalysis, dip stickCPT-4: 56720 03/28/20192041C8K-ZsanlbrzkkfuqzcEET-6: 76621SxyazjdH8H-LepvytnmqdsbkeoZPI-0: 49738 IjwgoocT5P-TpbqqynaxeqviyoRTV-6: 44329YwgzhyhG6L-FwenynceouedyhcYAP-0: 18975 PihfqxmX6G-HhlgdlhzakmytnpXXY-5: 41196BwogsfwX1G-LhoulvdolhronvbKFM-5: 44792 LjkerusI5S-SdrbuvnjojlzhfsRDY-4: 83351XuhgatuM2T-RvnsjphsvkxtyksKLX-4: 62513 HhzxnhyF8I-ElmfukqbxsvexvlLZK-7: 26378DqoikouG7B-PkrcgjngzvoavmoHOR-5: [address]: 626284059 CPT-4: E30Cwfhpqo Reason For Visit No Reason For Visit data Plan of Care Planned Activity Notes Codes Status Date Referral: Pending Gynecology Referral Informatio n Referral ProcessedReferral: Pending Pulmonology Referral InformationReferralProcessed Referral: Pending Psychiatry Referral InformationReferralInitiatedReferral: Pending Respiratory Services Referral InformationReferralInitiatedReferral: Pending Ophthalmology Referral InformationReferralInitiatedReferral: [facility] WPtel: [address] [place] [address] USWriter placed a call out to the patient to notify her that it has been recommended that she be seenby a urologist. Patient agreed to be seen, does not have a provider of choice and no transportationissues. Mac Operator faxed referral and clinical notes to [facility] in [place], [place] near the patient's home. Patient to [...] seen and prefers a provider in the [place] or [place] area. Mac Operator placed a call out to everyone listed in the area and the only location that was able to accept the patient's insurance was [address] [address] and spoke with Maylin. Maylin asked that the patient's referral, face sheet and visit notes be faxed to . Mac Operator faxed over requested documents. Patient appointment confirmation letter generated and mailed to her home address. Patient to call to schedule an appointment.ProcessedReferral: [facility] WPtel: [address] [id number] USPatient notified that it has been advised that she be seen by Neurology. Patient agreed to be seen and prefers to be seen by a provider in the [place], [place] area. Patient denies any concerns with transportation, and prefers to schedule her own appointment. Mac Operator placed a call out to [facility] and spoke with Neeraj [...]
--- OUTSIDE RECORDS SUMMARY | 2023-12-07 02:21 | XMS_ITS | CCD ---
Author Name Leena Culver NP Address [id number] [place] [address] [place] [address] Phone Organization [employer] [facility] Phone Care Team Providers Care Sales Intern Name Role Phone Anna Culver NP Primary Care Provider Unav ailable Unavailable Chronic Care Management Unavaila ble Summary Purpose DataExchange Insurance Providers Payer name Policy type / Coverage type Covered alliance party ID Effective Begin Date Effective End Date SUKI MAYO [id number] Unknown Unknown Family history Mother Diagnosis Age [...] 05/31/2018 Education level Unknown Some High School 10th05/31/20188143IgtucudytoZtyjextCjkkiuhekw48/29/2018Tobacco historySNOMED CT: 229651602Tbm never smoked or chewed vkblgzy5405/31/2018Alcohol historySNOMED CT: 193349850Xpivo drinks feaokqe6405/31/2018Has the patient ever used illegal drugs? UnknownHas never used illegal drugs05/31/2018DNR Order/ Advanced Directive UnknownFull Code05/31/2018 Allergies, Adverse Reactions, Alerts Substance Reaction Codes Entered Date Inactivated Date Status OxyContin itch, RxNorm: 731551 01/13/2021 No Inactive Da te Active *No known food allergies Wyzfozk3809/06/2018No Inactive DateActiveMethylprednisolonehivesRxNorm: 6902 09/06/2018No Inactive DateActive Problems Condition Codes Effective Dates Condition St atus Adjustment disorder with mixed anxiety a nd depressed mood ICD-10: F43.23 ICD-9: 309.2812/01/2018ActiveAsthmaICD-10: J45.909 ICD-9: 493.9011/03/2018ActiveGERD (gastroesophageal reflux disease)ICD-10: K21.9 ICD-9: 530.8112ActiveObstructive sleep apnea (adult) (pediatric)ICD-10: G47.33 ICD-9: 327.2309/ActiveType 2 diabetes mellitus with peripheral neuropathy ICD-10: E11.42 ICD-9: 250.6002/ActiveAnkle sprainICD-10: S93.409A ICD-9: 845.0010/ctiveAdult BMI 50.0-59.9 kg/sq mICD-10: Z68.43 ICD-9: V85.4308ActiveHypertensive heart diseaseICD-10: I11.9 ICD-9: 402.9003/ctiveHypothyroidICD-10: E03.9 ICD-9: 244.912ActiveInfluenza vaccine refusedICD-10: Z28.21 ICD-9: V64.0609/ctiveMajor depression, recurrentICD-10: F33.9 ICD-9: 296.3009/ctiveAbscessICD-10: L02.91 ICD-9: 682.907/ctiveHyperlipidemia, mixedICD-10: E78.2 ICD-9: 272.203/ctiveHypertensionICD-10: I10 ICD-9: 401.903/2Active(Z00.00-V70.9) Encounter for general adult medical examination without abnormal findingsICD-10: Z00.00 ICD-9: V70.905/ctiveAllergic rhinitisICD-10: J30.9 ICD-9: 477.903/ctiveEdema, unspecifiedICD-10: R60.9 ICD-9: 782.310/06/2018ActiveVitamin D deficiencyICD-10: E55.9 [...] Z01.810 ICD-9: V72.8106/InactiveHeadacheICD-10: R51 ICD-9: 784.001/10/2018InactiveOther intermediate (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ICD-10: Z79.899 ICD-9: V58.6907/InactiveType 2 [...] (18 mg/3 mL) subcutaneous pen injector RxNorm: 994423 Inject 0.6-1.8 Milligram(s) Subcutaneous once a week Inject 0.6mg/0.1ml week one, 1.2mg/0.2ml week two, 1.8/0.3ml weekly thereafter 022 2021 Inactive ibuprofen 800 mg tablet RxNorm: 506009 Take 1 Tablet(s) Oral Q8H as needed for pain take with food No Stop Date Active Ozempic 1 mg/dose (4 mg/3 mL) subcutaneous pen injector RxNorm: 4912323 Take 1 Unit Dose Subcutaneous QWeek Tuesday 022 2021 Inactive lisinopril 2.5 mg tablet RxNorm: 809280 Take 1 Tablet(s) Oral every day 022 2021 Inactive lisinopril 2.5 mg tablet RxNorm: 750437 Take 1 Tablet(s) Oral every day 022 2022 Inactive hydrochlorothiazide 25 mg tablet RxNorm: 937501 Take 1 Tablet(s) Oral every day 2021 Inactive Ozempic 1 mg/dose (4 mg/3 mL) subcutaneous pen injector RxNorm: 7262630 Take 1 Unit Dose Subcutaneous QWeek 022 2021 Inactive famotidine 20 mg tablet RxNorm: 131757 Take 1 Tablet(s) Oral every morning 022 2021 Inactive levothyroxine 50 mcg tablet RxNorm: 450972 Take 1 Tablet(s) Oral every day 022 2021 Inactive atorvastatin 20 mg tablet RxNorm: 433277 Take 1 Tablet(s) Oral every night at bedtime 2021 Inactive Cleocin T 1 % lotion RxNorm: 664365 Take 2 Gram(s) Topical every day 022 2021 Inactive Cleocin T 1 % lotion RxNorm: 853180 Take 2 Gram(s) Topical every day 022 2021 Inactive Ozempic 1 mg/dose (4 mg/3 mL) subcutaneous pen injector RxNorm: 9334876 Take 1 Unit Dose Subcutaneous QWeek 022 2021 Inactive Ozempic 0.25 mg or 0.5 mg (2 mg/1.5 mL) subcutaneous pen injector RxNorm: 6343883 INJECT 0.5 MGS SUBCUTANEOUSLY EVERY WEEK 022 2021 Inactive omeprazole 20 mg capsule,delayed release RxNorm: 751024 Take 1 Capsule(s) Oral every evening 2021 Inactive levothyroxine 50 mcg tablet RxNorm: 520981 Take 1 Tablet(s) Oral every day 022 2021 Inactive atorvastatin 20 mg tablet RxNorm: 487870 Take 1 Tablet(s) Oral every night at bedtime 2021 Inactive This refill negates all other refills of this medication lisinopril 2.5 mg tablet RxNorm: 147663 Take 1 Tablet(s) Oral every day 2021 Inactive gabapentin 300 mg capsule RxNorm: 399252 Take 1 Capsule(s) Oral three times a day 2021 Inactive montelukast 10 mg tablet RxNorm: 691101 Take 1 Tablet(s) Oral every day 022 2021 Inactive cholecalciferol (vitamin D3) 50 mcg (2,000 unit) tablet RxNorm: 364924 Take 1 Tablet(s) Oral every day 2022 Inactive Myrbetriq 50 mg tablet,extended release RxNorm: 0219987 1 Tablet(s) Oral every day No Stop Date Active Ozempic 0.25 mg or 0.5 mg (2 mg/1.5 mL) subcutaneous pen injector RxNorm: 2174111 inject 0.5 milligrams subcutaneously every week 022 2021 Inactive Ozempic 0.25 mg or 0.5 mg (2 mg/1.5 mL) subcutaneous pen injector RxNorm: 0753846 Take 0.5 Capsule(s) Injection once a week 2021 Inactive omeprazole 20 mg capsule,delayed release RxNorm: 963386 Take 1 Capsule(s) Oral every evening 2020 Inactive Ozempic 0.25 mg or 0.5 mg (2 mg/1.5 mL) subcutaneous pen injector RxNorm: 3293101 Take 0.25 Milligram(s) Subcutaneous once a week 2021 Inactive Easy Touch Alcohol Prep Pads RxNorm: 714001 USE DIRECTED EACH MORNING 2021 Inactive Probiotic 10 billion cell capsule RxNorm: 9835499 Take 1 Capsule(s) Oral every day 2021 Inactive levothyroxine 50 mcg tablet RxNorm: 086191 Take 1 Tablet(s) Oral every day 2020 Inactive Acid Rehabilitation Liaison (famotidine) 20 mg tablet RxNorm: 311819 Take 1 Tablet(s) Oral every morning 2020 Inactive Heartburn Relief (famotidine) 10 mg tablet RxNorm: 267192 Take 1 Tablet(s) Oral QAM 021 2020 Inactive levothyroxine 50 mcg tablet RxNorm: 297637 Take 1 Tablet(s) Oral QD 2020 Inactive Singulair 10 mg tablet RxNorm: 136938 TAKE (1) TABLET BY MOUTH DAILY 2020 Inactive metformin 1,000 mg tablet RxNorm: 991347 1 Tablet(s) Oral two times a day 021 2021 Inactive lisinopril 2.5 mg tablet RxNorm: 401493 Take 1 Tablet(s) Oral every day 021 2020 Inactive hydrochlorothiazide 25 mg tablet RxNorm: 861508 Take 1 Tablet(s) Oral every day 021 2020 Inactive ondansetron 4 mg disintegrating tablet RxNorm: 896210 1 Tablet(s) Oral two times a day 021 2020 Inactive Sudafed 12 Hour 120 mg tablet,extended release RxNorm: 0120424 TAKE 1 TABLET BY MOUTH EVERY 12 HOURS NEEDED 021 2021 Inactive Heartburn Relief (famotidine) 10 mg tablet RxNorm: 290739 Take 1 Tablet(s) Oral every morning 021 2020 Inactive omeprazole 20 mg capsule,delayed release RxNorm: 029672 1 Capsule(s) Oral every evening 021 2020 Inactive sertraline 100 mg tablet RxNorm: 364346 2 Tablet(s) Oral every day 021 2020 Inactive levothyroxine 50 mcg tablet RxNorm: 219953 TAKE (1) TABLET BY MOUTH DAILY 021 2020 Inactive metformin 500 mg tablet RxNorm: 084371 1 Tablet(s) Oral two times a day take with 500mg to equal 1000mg 021 2020 Inactive gabapentin 300 mg capsule RxNorm: 742197 TAKE 1 CAPSULE BY MOUTH THREE TIMES A DAY 021 2020 Inactive lisinopril 2.5 mg tablet RxNorm: 637575 TAKE 1 TABLET BY MOUTH DAILY 021 2020 Inactive gabapentin 300 mg capsule RxNorm: 659143 TAKE 1 CAPSULE BY MOUTH THREE TIMES A DAY 021 2020 Inactive Singulair 10 mg tablet RxNorm: 411359 TAKE (1) TABLET BY MOUTH DAILY 021 2020 Inactive metformin 1,000 mg tablet RxNorm: 711137 1 Tablet(s) Oral two times a day 021 2020 Inactive atorvastatin 40 mg tablet RxNorm: 385610 1 Tablet(s) Oral every day 021 2020 Inactive omeprazole 20 mg capsule,delayed release RxNorm: 079542 1 Capsule(s) Oral every evening 021 2020 Inactive famotidine 10 mg tablet RxNorm: 246851 1 Tablet(s) Oral every morning 021 2020 Inactive Alcohol Prep Pads RxNorm: 936502 USE EACH MORNING 2020 Inactive omeprazole 20 mg capsule,delayed release RxNorm: 947806 1 Capsule(s) Oral two times a day 2021 Inactive omeprazole 20 mg capsule,delayed release RxNorm: 614136 TAKE 1 CAPSULE BY MOUTH EVERY DAY 2021 Inactive Macrobid 100 mg capsule RxNorm: 264720 1 Capsule(s) Oral every 12 hours with food 2020 Inactive omeprazole 20 mg capsule,delayed release RxNorm: 607808 1 Capsule(s) Oral two times a day 2021 Inactive metformin 1,000 mg tablet RxNorm: 230545 1 Tablet(s) Oral two times a day 2020 Inactive start on September 11, 2020 metformin 500 mg tablet RxNorm: 502412 1 Tablet(s) Oral two times a day take with 500mg to equal 1000mg 2019 Inactive gabapentin 300 mg capsule RxNorm: 111981 TAKE 1 CAPSULE BY MOUTH THREE TIMES DAILY 2020 Inactive cetirizine 10 mg tablet RxNorm: 4474840 TAKE (1) TABLET BY MOUTH DAILY 2020 Inactive metformin 500 mg tablet RxNorm: 550857 1 Tablet(s) Oral two times a day 2019 Inactive loperamide 2 mg tablet RxNorm: 648974 1 Tablet(s) Oral as needed take one tablet after each loose stool, maximum of 8 tablets in 24 hours 2021 Inactive Sudafed 12 Hour 120 mg tablet,extended release RxNorm: 2332670 TAKE 1 TABLET BY MOUTH EVERY 12 HOURS NEEDED 2019 Inactive hydrochlorothiazide 25 mg tablet RxNorm: 750385 TAKE (1) TABLET BY MOUTH EVERY DAY 2019 Inactive omeprazole 20 mg capsule,delayed release RxNorm: 104310 TAKE 1 CAPSULE BY MOUTH EVERY DAY 2020 Inactive metformin 500 mg tablet RxNorm: 217696 1 Tablet(s) Oral every day 2019 Inactive True Metrix Glucose Test Strip RxNorm: 1 Test Strips Miscellaneous two times a day as needed No Stop Date Active metformin 500 mg tablet RxNorm: 086162 1 Tablet(s) Oral every day 020 2019 Inactive diclofenac sodium 75 mg tablet,delayed release RxNorm: 790100 1 Tablet(s) PO BID 2021 Inactive This refill negates all other refills of this medication Sudafed 12 Hour 120 mg tablet,extended release RxNorm: 6473193 TAKE 1 TABLET BY MOUTH EVERY 12 HOURS NEEDED 020 2019 Inactive True Metrix Glucose Test Strip RxNorm: 1 Test Strips Miscellaneous every morning 020 2019 Inactive 100/container True Metrix Glucose Test Strip RxNorm: 1 Test Strips Miscellaneous QAM 020 2019 Inactive 100/container loperamide 2 mg tablet RxNorm: 309709 1 Tablet(s) Oral as needed take one tablet after each loose stool, maximum of 8 tablets in 24 hours 2019 Inactive cetirizine 10 mg tablet RxNorm: 0489941 1 Tablet(s) PO daily 2019 Inactive loperamide 2 mg tablet RxNorm: 031338 1 Tablet(s) Oral as needed take one tablet after each loose stool, maximum of 8 tablets in 24 hours 020 2019 Inactive quetiapine 100 mg tablet RxNorm: 130918 1 Tablet(s) Oral every night at bedtime 2019 Inactive levothyroxine 50 mcg tablet RxNorm: 349818 1 Tablet(s) PO daily 020 2020 Inactive gabapentin 300 mg capsule RxNorm: 863700 1 Capsule(s) PO TID 020 2019 Inactive levothyroxine 50 mcg tablet RxNorm: 035737 1 Tablet(s) PO daily 2019 Inactive lisinopril 2.5 mg tablet RxNorm: 246516 1 Tablet(s) PO daily 2020 Inactive gabapentin 300 mg capsule RxNorm: 295345 1 Capsule(s) PO TID 2019 Inactive cetirizine 10 mg tablet RxNorm: 5409423 1 Tablet(s) PO daily 2019 Inactive Singulair 10 mg tablet RxNorm: 309234 1 Tablet(s) PO daily 2020 Inactive gentamicin 0.3 % eye drops RxNorm: 498891 1 Drop(s) ophthalmic (eye) four times a day 2019 Inactive gentamicin 0.3 % eye drops RxNorm: 455356 1 Drop(s) ophthalmic (eye) four times a day 2019 Inactive gentamicin 0.3 % eye drops RxNorm: 000788 1 Drop(s) ophthalmic (eye) four times a day 2019 Inactive hydrochlorothiazide 25 mg tablet RxNorm: 502015 1 Tablet(s) Oral every day 2019 Inactive Sudafed 12 Hour 120 mg tablet,extended release RxNorm: 0824170 TAKE (1) TABLET BY MOUTH EVERY 12 HOURS NEEDED 2019 Inactive loperamide 2 mg tablet RxNorm: 720564 1 Tablet(s) Oral as needed take one tablet after each loose stool, maximum of 8 tablets in 24 hours 2019 Inactive loperamide 2 mg tablet RxNorm: 699865 1 Tablet(s) Oral as needed take one tablet after each loose stool, maximum of 8 tablets in 24 hours 2019 Inactive atorvastatin 40 mg tablet RxNorm: 847913 1 Tablet(s) Oral every day 2020 Inactive quetiapine 100 mg tablet RxNorm: 084501 1 Tablet(s) Oral every night at bedtime 2019 Inactive sertraline 100 mg tablet RxNorm: 966076 1 Tablet(s) Oral 020 2019 Inactive omeprazole 20 mg capsule,delayed release RxNorm: 215180 1 Capsule(s) Oral every day 020 2019 Inactive amoxicillin 250 mg capsule RxNorm: 586320 1 Capsule(s) Oral three times a day 2019 Inactive multivitamin with iron-mineral tablet RxNorm: 1 Tablet(s) Oral every day 020 2021 Inactive cetirizine 10 mg tablet RxNorm: 2101906 1 Tablet(s) PO daily 2019 Inactive This refill negates all other refills of this medication. Please do not auto refill Singulair 10 mg tablet RxNorm: 737874 1 Tablet(s) PO daily 2019 Inactive This refill negates all other refills of this medication gabapentin 300 mg capsule RxNorm: 975468 1 Capsule(s) PO TID 2019 Inactive lisinopril 2.5 mg tablet RxNorm: 083254 1 Tablet(s) PO daily 2019 Inactive levothyroxine 50 mcg tablet RxNorm: 560152 1 Tablet(s) PO daily 2019 Inactive This refill negates all other refills of this medication hydrochlorothiazide 25 mg tablet RxNorm: 595870 1 Tablet(s) Oral every day 2019 Inactive fenugreek seed extract 500 mg capsule RxNorm: 1 Capsule(s) Oral three times a day 020 2021 Inactive Alcohol Prep Pads RxNorm: 421144 1 Patch TOP QAM 2020 Inactive loperamide 2 mg tablet RxNorm: 842839 1 Tablet(s) Oral as needed take one [...] 2019 Inactive hydrochlorothiazide 25 mg tablet RxNorm: 037377 1 Tablet(s) Oral every day 2019 Inactive Sudafed 12 Hour 120 mg tablet,extended release RxNorm: 4018189 1 Tablet(s) Oral every 12 hours as needed 019 2018 Inactive omeprazole 20 mg capsule,delayed release RxNorm: 232186 1 Capsule(s) Oral every day 2019 Inactive Sudafed 12 Hour 120 mg tablet,extended release RxNorm: 9508379 1 Tablet(s) Oral every 12 hours as needed 2018 Inactive pantoprazole 40 mg tablet,delayed release RxNorm: 037145 1 Tablet(s) Oral every day 2018 Inactive discontinue any other H2Blkr. and PPI albuterol sulfate 2.5 mg/3 mL (0.083 %) solution for nebulization RxNorm: 736460 1 Vial Inhalation every four hours as needed as needed for dyspnea 2019 Inactive 60/box. This refill negates all other refills of this medication. Please do not fill early. Please do not auto refill. Symbicort 160 mcg-4.5 mcg/actuation HFA aerosol inhaler RxNorm: 0726041 2 Puff(s) INH BID No Stop Date Active Alcohol Prep Pads RxNorm: 982556 1 Patch TOP QAM 019 2019 Inactive Ventolin HFA 90 mcg/actuation aerosol inhaler RxNorm: 214106 2 Puff(s) INH QID 2019 Inactive Please do not fill early. Please do not auto refill. This refill negates all other refills of this medication True Metrix Glucose Test Strip RxNorm: 1 Test Strips Miscellaneous QAM 019 2019 Inactive 100/container atorvastatin 40 mg tablet RxNorm: 586809 1 Tablet(s) Oral every day 019 2019 Inactive buspirone 7.5 mg tablet RxNorm: 621634 1 Tablet(s) PO BID 019 2020 Inactive This refill negates all other refills of this medication hydrochlorothiazide 12.5 mg tablet RxNorm: 348119 1 Tablet(s) PO QAM 019 2019 Inactive levmetamfetamine 50 mg nasal inhaler RxNorm: 1 Unit(s) NASAL Q3-4H Do not use more than every 3 hours or 8 times/24hours 2021 Inactive Please do not auto refill. This refill negates all other refills of this medication Ventolin HFA 90 mcg/actuation aerosol inhaler RxNorm: 045147 2 Puff(s) INH QID 019 2018 Inactive Please do not fill early. Please do not auto refill. This refill negates all other refills of this medication Singulair 10 mg tablet RxNorm: 665773 1 Tablet(s) PO daily 019 2019 Inactive This refill negates all other refills of this medication cetirizine 10 mg tablet RxNorm: 1649921 1 Tablet(s) PO daily 019 2019 Inactive This refill negates all other refills of this medication. Please do not auto refill levothyroxine 50 mcg tablet RxNorm: 793813 1 Tablet(s) PO daily 019 2019 Inactive This refill negates all other refills of this medication diclofenac sodium 75 mg tablet,delayed release RxNorm: 026652 1 Tablet(s) PO BID 019 2019 Inactive This refill negates all other refills of this medication ranitidine 150 mg tablet RxNorm: 582252 1 Tablet(s) PO BID 019 2018 Inactive This refill negates all other refills of this medication Calcium 600-D3 Plus (mag-zinc) 600 mg calcium-800 unit-50 mg tablet RxNorm: 1 Tablet(s) PO daily take an additonal tablet for itching. 019 2018 Inactive This refill negates all other refills of this medication albuterol sulfate 2.5 mg/3 mL (0.083 %) solution for nebulization RxNorm: 539899 1 Vial INH QID 2018 Inactive 60/box. This refill negates all other refills of this medication. Please do not fill early. Please do not auto refill. lisinopril 2.5 mg tablet RxNorm: 609002 1 Tablet(s) PO daily 019 2019 Inactive gabapentin 300 mg capsule RxNorm: 908953 1 Capsule(s) PO TID 019 2019 Inactive atorvastatin 20 mg tablet RxNorm: 613767 1 Tablet(s) PO QHS 2018 Inactive This refill negates all other refills of this medication TRUEplus Lancets 30 gauge RxNorm: 1 Lancets Miscellaneous QAM 019 2018 Inactive 100/box gabapentin 300 mg capsule RxNorm: 887616 1 Capsule(s) PO TID 019 2018 Inactive Flintstones Complete (iron) 18 mg iron chewable tablet RxNorm: 1 Tablet(s) PO daily 019 2021 Inactive This refill negates all other refills of this medication gabapentin 300 mg capsule RxNorm: 327101 1 Capsule(s) PO TID as needed 2018 Inactive True Metrix Glucose Test Strip RxNorm: 1 Test Strips Miscellaneous QAM 019 2018 Inactive 100/container Alcohol Prep Pads RxNorm: 549246 1 Patch TOP QAM 019 2018 Inactive TRUEplus Lancets 30 gauge RxNorm: 1 Lancets Miscellaneous QAM 019 2018 Inactive 100/box lisinopril 2.5 mg tablet RxNorm: 375331 1 Tablet(s) PO daily 019 2018 Inactive ranitidine 150 mg tablet RxNorm: 896842 1 Tablet(s) PO BID 019 2018 Inactive This refill negates all other refills of this medication albuterol sulfate 2.5 mg/3 mL (0.083 %) solution for nebulization RxNorm: 929359 1 Vial INH QID 019 2018 Inactive [...] this medication gabapentin 300 mg capsule RxNorm: 737690 1 Capsule(s) PO TID as needed 019 2018 Inactive atorvastatin 20 mg tablet RxNorm: 069247 1 Tablet(s) PO QHS 019 2018 Inactive This refill negates all other refills of this medication trazodone 50 mg tablet RxNorm: 406343 1 Tablet(s) PO QHS 019 2018 Inactive This refill negates all other refills of this medication Ventolin HFA 90 mcg/actuation aerosol inhaler RxNorm: 838982 2 Puff(s) INH QID 019 2018 Inactive Please do not fill early. Please do not auto refill. This refill negates all other refills of this medication Calcium 600-D3 Plus 600 mg calcium-800 unit-50 mg tablet RxNorm: 1 Tablet(s) PO daily take an additonal tablet for itching. 019 2018 Inactive This refill negates all other refills of this medication Singulair 10 mg tablet RxNorm: 629209 1 Tablet(s) PO daily 019 2018 Inactive This refill negates all other refills of this medication buspirone 7.5 mg tablet RxNorm: 810851 1 Tablet(s) PO BID 019 2018 Inactive This refill negates all other refills of this medication diclofenac sodium 75 mg tablet,delayed release RxNorm: 461457 1 Tablet(s) PO BID 019 2018 Inactive This refill negates all other refills of this medication hydrochlorothiazide 12.5 mg tablet RxNorm: 169886 1 Tablet(s) PO QAM 019 2018 Inactive metoprolol succinate ER 50 mg tablet,extended release 24 hr RxNorm: 266185 1 Tablet(s) PO daily 019 2018 Inactive This refill negates all other refills of this medication levothyroxine 50 mcg tablet RxNorm: 594468 1 Tablet(s) PO daily 019 2018 Inactive This refill negates all other refills of this medication cetirizine 10 mg tablet RxNorm: 0566019 1 Tablet(s) PO daily 2018 Inactive This refill negates all other refills of this medication. Please do not auto refill Flintstones Complete (iron) 18 mg iron chewable tablet RxNorm: 1 Tablet(s) PO daily 019 2018 Inactive This refill negates all other refills of this medication buspirone 7.5 mg tablet RxNorm: 008081 1 Tablet(s) PO BID 019 2018 Inactive cetirizine 10 mg tablet RxNorm: 9182055 1 Tablet(s) PO daily 2018 Inactive Guaiasorb DM 10 mg-100 mg/5 mL oral liquid RxNorm: 392834 10 Milliliter(s) PO As needed every 4 hr 2018 Inactive Vicks Vaporub 4.7 %-1.2 %-2.6 % topical ointment RxNorm: 3160557 1 Application TOP TID 2018 Inactive levmetamfetamine 50 mg nasal inhaler RxNorm: 1 Unit(s) NASAL Q3-4H 2017 Inactive sertraline 50 mg tablet RxNorm: 698378 1 Tablet(s) PO daily 2018 Inactive Please note dose trazodone 50 mg tablet RxNorm: 095984 1 Tablet(s) PO QHS 2018 Inactive sertraline 50 mg tablet RxNorm: 798323 1 Tablet(s) PO daily 2017 Inactive amoxicillin 500 mg tablet RxNorm: 974400 1 Tablet(s) PO Q12H 2017 Inactive albuterol sulfate 2.5 mg/3 mL (0.083 %) solution for nebulization RxNorm: 459795 1 Vial INH QID 2018 Inactive 60/box. Please do not fill early. Please do not auto refill. Prozac 10 mg capsule RxNorm: 649849 1 Capsule(s) PO daily 2017 Inactive buspirone 7.5 mg tablet RxNorm: 289446 1 Tablet(s) PO BID 2018 Inactive gabapentin 300 mg capsule RxNorm: 428009 1 Capsule(s) PO TID as needed 2018 Inactive hydrochlorothiazide 12.5 mg tablet RxNorm: 811305 1 Tablet(s) PO QAM 2018 Inactive ranitidine 150 mg tablet RxNorm: 171843 1 Tablet(s) PO BID 2018 Inactive Macrobid 100 mg capsule RxNorm: 882140 1 Capsule(s) PO Q12H 018 2017 Inactive Singulair 10 mg tablet RxNorm: 478065 1 Tablet(s) PO daily 2018 Inactive Ventolin HFA 90 mcg/actuation aerosol inhaler RxNorm: 9600437 2 Puff(s) INH QID 018 2018 Inactive Singulair 10 mg tablet RxNorm: 517055 1 Tablet(s) PO daily 018 2017 Inactive buspirone 7.5 mg tablet RxNorm: 777781 1 Tablet(s) PO BID 018 2017 Inactive Prozac 10 mg capsule RxNorm: 807578 1 Capsule(s) PO daily 018 2017 Inactive diclofenac sodium 75 mg tablet,delayed release RxNorm: 937649 1 Tablet(s) PO BID 018 2017 Inactive lisinopril 2.5 mg tablet RxNorm: 805494 1 Tablet(s) PO daily 018 2017 Inactive Neilmed Pediatric Sinus Rinse Refill packet RxNorm: 1 Unit Dose NASAL PRN 018 2021 Inactive metoprolol succinate ER 50 mg tablet,extended release 24 hr RxNorm: 254544 1 Tablet(s) PO daily 018 2017 Inactive levothyroxine 50 mcg tablet RxNorm: 290089 1 Tablet(s) PO daily 018 2017 Inactive TRUEplus Lancets 30 gauge RxNorm: 1 Lancets Miscellaneous QAM 018 2017 Inactive 100/box Ventolin HFA 90 mcg/actuation aerosol inhaler RxNorm: 992681 2 Puff(s) INH QID 018 2017 Inactive Aleve 220 mg capsule RxNorm: 6292669 1 Capsule(s) PO BID 018 2018 Inactive ranitidine 150 mg tablet RxNorm: 308146 1 Tablet(s) PO BID 018 2017 Inactive gabapentin 300 mg capsule RxNorm: 531046 1 Capsule(s) PO TID as needed 018 2017 Inactive atorvastatin 20 mg tablet RxNorm: 031373 1 Tablet(s) PO QHS 018 2017 Inactive True Metrix Glucose Test Strip RxNorm: 1 Test Strips Miscellaneous QAM 018 2017 Inactive 50/container Calcium 600-D3 Plus 600 mg calcium-800 unit-50 mg tablet RxNorm: 1 Tablet(s) PO daily take an additonal tablet for itching. 018 2017 Inactive hydrochlorothiazide 12.5 mg tablet RxNorm: 131724 1 Tablet(s) PO QAM 018 2017 Inactive Flintstones Complete (iron) 18 mg iron chewable tablet RxNorm: 1 Tablet(s) PO daily 018 2017 Inactive True Metrix Glucose Meter RxNorm: miscellaneous 019 2018 Inactive sertraline 50 mg tablet RxNorm: 500472 1 Tablet(s) PO daily 020 2019 Inactive loperamide 2 mg tablet RxNorm: 401555 oral 019 2018 Inactive d-mannose oral powder RxNorm: PO 018 2021 Inactive Symbicort 160 mcg-4.5 mcg/actuation HFA aerosol inhaler RxNorm: 5624342 2 Puff(s) INH BID 019 2018 Inactive Medication Administered No Medication Administered data Procedures Procedure Codes Date [place] Fany Assessment CPT-4: DSWA 04/02 Patient Health [...] CPT-4: VACP Fall Risk Assessment SNOMED CT: 47860769 4 CPT-4: [id number] Fany AssessmentCPT-4: DSWA12/17/2020Urinalysis, dip stickCPT-4: 403384209/24/2020Patient Health QuestionnaireCPT-4: DPHQ 08/19/2020ElectrocardiogramCPT-4: 1204599Tobacco Assessment/Screening CPT-4: TCA01/01/2020Fall Risk AssessmentSNOMED CT: [id number] CPT-4: DFRA01/01/2020Functional AssessmentCPT-4: DFA01/01/2020Semmes Fany AssessmentCPT-4: DSWA11/28/2019Patient Health QuestionnaireCPT-4: DPHQ11/28/2019 [place] Fany AssessmentCPT-4: DS10/17/2019HypertensionCPT-4: HTN10/17/[address]: [id number] CPT-4: DFRA09/19/2019Functional AssessmentCPT-4: DFA111/20/2018Urinalysis, dip stickCPT-4: 9783235Tobacco Assessment/ScreeningCPT-4: TCA05/24/2019 Patient Health QuestionnaireCPT-4: DPHQ05/24/2019AHA/REBECCA Classification AssessmentCPT-4: DAHA04/25/2019Controlled Substance ReportCPT-4: CTRSU04/25/2019 Urinalysis, dip stickCPT-4: 363250603/28/2019Urinalysis, dip stickCPT-4: 09098 03/28/20196562M1D-NggmfxynhnmlymrHBQ-0: 29188JjlozyaU0V-EfpicqkgyjopdjtVYZ-8: 14014 FkjruknA9M-KhmdfyknjdnqljsRKT-5: 99602XzlssojR6U-ZawgenvbcdjtqcfZXB-0: 74778 UddwjqoQ1I-NuztnmbmrdnuvzoBDN-6: 76992CyqqxgiV2R-JinqnxarrlxhggyUQZ-5: 14078 QiamusuY0N-PetsrpaalkojgtjCWL-6: 78267RpingnwV1I-WtfrybqkfzjpyndBMY-1: 52853 BxbjxxcK9K-PksfhdbdrawjxlcKDL-1: 77135GtaisilC1B-QvfjwkpnoaamlhhPUY-4: 84032 UnknownGynecology [facility]: [id number] CPT-4: H81Stwzjbz Reason For Visit No Reason For Visit data Plan of Care Planned Activity Notes Codes Status Date Patient Education: Patient Medication Summary Yyseivprf18/07/2022ppointment: Anna Culver WPtel: [address] [place] [address] [id number]: Chivo Bishop WPtel: [address] [place] [address] [id number]: Chivo Bishop WPtel: [address] [place] [address] [id number]: Mikey Nair WPtel: [facility] AbyleoTS[address] [id number]: Chivo Bishop WPtel: [address] [place] [address] [id number]: Chivo Bishop WPtel: [address] [place] [address] [id number]: Chivo Bishop WPtel: [address] [place] [address] USETV111/11/2020ppointment: Chivo Bishop WPtel: [address] [place] [address] USETV110/13/2020ppointment: Chivo Bishop WPtel: [address] [place] [address] USETV1ppointment: Chivo Bishop WPtel: [phone] [place] [address] [id number]: Anna Culver WPtel: [phone] [place] [address] USETV06/02/2021ppointment: Chivo Bishop WPtel: [phone] [place] [address] USETV05/20/2021ppointment: Anna Culver WPtel: [phone] [place] [address] USETV04/28/2021ppointment: Chivo Bishop WPtel: [address] [place] [address] USETV04/15/2021ppointment: Anna Culver WPtel: [address] [place] [address] [id number]: Anna Culver WPtel: [address] [place] [address] USETV03/24/2021ppointment: Anna Culver WPtel: [address] [place] [address] USETV03/13/2021ppointment: Anna Culver WPtel: [address] [place] [address] [id number]: Chivo Bishop WPtel: [phone] [place] [address] [id number]: Anna Culver WPtel: [phone] [place] [address] USETV01/13/2021ppointment: Anna Culver WPtel: [address] [place] [address] [id number]: Chivo Bishop WPtel: [phone] [place] [address] [address] [place] [address] USETV11/28/2020ppointment: Anna Culver WPtel: [phone] [place] [address] [address] [place] [address] USETV11/24/2020ppointment: Anna Culver WPtel: [phone] [place] [address] [address] [place] [address] [id number]: Anna Culver WPtel: [phone] [place] [address] [address] [place] [address] NLL1452011/25/2019Appointment: Anna Culver WPtel: [phone] [place] [address] [place] [address] USETV110/26/2019Appointment: Anna Culver WPtel: [address] [place] [address] [place] [address] USETV110/19/2019Appointment: Anna Culver WPtel: [address] [place] [address] [place] [address] USETV1Appointment: Anna Culver WPtel: [address] [place] [address] [place] [address] USETV1Appointment: Gianna Birmingham [facility]: [facility] [address] [id number]: Anna Culver WPtel: [phone] [place] [address] [address] [place] [address] [id number]: Anna Culver WPtel: [phone] [place] [address] [address] [place] [address] [id number]: Anna Culver WPtel: [phone] [place] [address] [place] [address] [id number]: Anna Culver WPtel: [phone] [place] [address] [id number]: Anna Culver WPtel: [phone] [place] [address] [id number]: Anna Culver WPtel: [address] [place] [address] [id number]: Anna Culver WPtel: [address] [place] [address] [id number]: Anna Culver WPtel: [phone] [place] [address] [id number]: Anna Culver WPtel: [address] [place] [address] [id number]: Anna Culver WPtel: [address] [place] [address] [id number]: Sudha Hernadez WPtel: [address] [facility] [id number]: Sudha Hernadez WPtel: [address] [facility] [id number] [id number]: Charlene Oropeza WPtel: [address] [facility] [id number]: Enedelia [id number]: Charlene Oropeza WPtel: [address] [facility] [address] [id number]: Rasta Palafox WPtel: [address] [facility] [address] [id number]: Rasta Palafox WPtel: [address] [facility] [address] [id number]: Rasta Palafox WPtel: [address] [facility] [address] [id number]: Rasta Palafox WPtel: [address] [facility] [address] [id number]: Pending Gynecology Referral InformationReferral ProcessedReferral: Pending Pulmonology Referral InformationReferralProcessed Referral: Pending Psychiatry Referral InformationReferralInitiatedReferral: Pending Respiratory Services Referral InformationReferralInitiatedReferral: Pending Ophthalmology Referral InformationReferralInitiatedReferral: [facility] WPtel: [address] [place] [address] 200 [facility] USWriter placed a call out to the patient to notify her that it has been recommended that she be seenby a urologist. Patient agreed to be seen, does not have a provider of choice and no transportationissues. Programming Instructor faxed referral and clinical notes to [facility] in [place], [place] near the patient's home. Patient to [...] and prefers a provider in the [place] or [facility]. Programming Instructor placed a call out to everyone listed in the area and the only location that was able to accept the patient's insurance was [address] [place] [address] and spoke with Maylin. Maylin asked that the patient's referral, face sheet and visit notes be faxed to . Programming Instructor faxed over requested documents. Patient appointment confirmation letter generated and mailed to her home address. Patient to call to schedule an appointment.ProcessedReferral: [facility] WPtel: [address] [facility] [address] [place], [place] [id number] USPatient notified that it has been advised that she be seen by Neurology. Patient agreed to be seen and prefers to be seen by a provider in the [place], [place] area. Patient denies any concerns with transportation, and prefers to schedule her own appointment. Programming Instructor placed a call out to [facility] and spoke [...]
--- OUTSIDE RECORDS SUMMARY | 2023-12-07 02:22 | XMS_ITS | CCD ---
Author Name Leena Culver NP Address [address] [place] [address] [address] [place] [address] Phone Organization [facility] Phone Care Team Providers Care Business Objects Report Developer Name Role Phone Anna Culver NP Primary Care Provider Unav ailable Unavailable Chronic Care Management Unavaila ble Summary Purpose DataExchange Insurance Providers Payer name Policy type / Coverage type Covered green party ID Effective Begin Date Effective End Date SUKI MAYO [id number] Unknown Unknown Family history Mother Diagnosis Age [...] 05/31/2018 Education level Unknown Some High School 10th05/31/20182361CqwxwplstiLipirrbFdaunkhccv58/29/2018Tobacco historySNOMED CT: 300991439Xny never smoked or chewed fpftcdq3605/31/2018Alcohol historySNOMED CT: 596875250Hvqvr drinks kctdlky3205/31/2018Has the patient ever used illegal drugs? UnknownHas never used illegal drugs05/31/2018DNR Order/ Advanced Directive UnknownFull Code05/31/2018 Allergies, Adverse Reactions, Alerts Substance Reaction Codes Entered Date Inactivated Date Status OxyContin itch, RxNorm: 269567 01/13/2021 No Inactive Da te Active *No known food allergies Qwoxnte6309/06/2018No Inactive DateActiveMethylprednisolonehivesRxNorm: 6902 09/06/2018No Inactive DateActive Problems Condition Codes Effective Dates Condition St atus Asthma ICD-10: J45.909 ICD-9: 493.9011/03/2018ActiveGERD (gastroesophageal reflux disease)ICD-10: K21.9 ICD-9: 530.8112ActiveMajor depression, recurrentICD-10: F33.9 ICD-9: 296.3009/ctiveObstructive sleep apnea (adult) (pediatric)ICD-10: G47.33 ICD-9: 327.2309/ActiveType 2 diabetes mellitus with peripheral neuropathy ICD-10: E11.42 ICD-9: 250.6002/ActiveHypertensive heart diseaseICD-10: I11.9 ICD-9: 402.9003/ctive(Z00.00-V70.9) Encounter for [...] 883.001/InactiveAdult BMI 50.0-59.9 kg/sq mICD-10: Z68.43 ICD-9: V85.4308/ActiveHypertensionICD-10: I10 ICD-9: 401.903/2ActivePost-traumatic stress disorder, unspecifiedICD-10: F43.10 ICD-9: 309.8112ActiveAdjustment disorder with mixed anxiety and depressed moodICD-10: F43.23 ICD-9: 309.2812ActiveHypothyroidICD-10: E03.9 ICD-9: 244.912ActiveHyperlipidemia, mixedICD-10: E78.2 ICD-9: 272.203/ctiveAllergic rhinitisICD-10: J30.9 ICD-9: 477.902ActiveEdema, unspecifiedICD-10: R60.9 ICD-9: [...] ICD-9: 788.21041ActiveApnea, not elsewhere classifiedICD-10: R06.81 ICD-9: 786.0305InactiveChest pain, unspecifiedICD-10: R07.9 ICD-9: 786.5002/InactiveChronic kidney disease, unspecifiedICD-10: N18.9 ICD-9: 585.909/InactiveEncounter for immunizationICD-10: Z23 ICD-9: V03.907/InactiveEncounter for preprocedural cardiovascular examinationICD-10: Z01.810 ICD-9: V72.8106/InactiveHeadacheICD-10: R51 ICD-9: 784.001/10/2018InactiveOther predatory animal 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 (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ICD-10: Z79.899 ICD-9: V58.6907/InactiveType [...] (4 mg/3 mL) subcutaneous pen injector RxNorm: 4492121 USE 1 UNIT DOSE SUBCUTANEOUSLY ON TUE OF EACH WEEK 023 2022 Inactive omeprazole 40 mg capsule,delayed release RxNorm: 073216 Take 1 Capsule(s) Oral every night at bedtime 023 2022 Inactive gabapentin 300 mg capsule RxNorm: 486751 Take 1 Capsule(s) Oral three times a day 023 2022 Inactive montelukast 10 mg tablet RxNorm: 498989 Take 1 Tablet(s) Oral every day 023 2022 Inactive omeprazole 20 mg capsule,delayed release RxNorm: 336807 Take 1 Capsule(s) Oral every evening 2022 Inactive Alcohol Prep Pads RxNorm: 867489 USE EACH MORNING 022 2021 Inactive E11.42 clotrimazole 1 % topical cream RxNorm: 765659 Apply 1 Application Topical two times a day as needed apply to affected area(s) twice daily until healed 2021 Inactive Victoza 2-Sebastián 0.6 mg/0.1 mL (18 mg/3 mL) subcutaneous pen injector RxNorm: 445895 Inject 0.6-1.8 Milligram(s) Subcutaneous once a week Inject 0.6mg/0.1ml week one, 1.2mg/0.2ml week two, 1.8/0.3ml weekly thereafter 022 2021 Inactive ibuprofen 800 mg tablet RxNorm: 066063 Take 1 Tablet(s) Oral Q8H as needed for pain take with food No Stop Date Active Ozempic 1 mg/dose (4 mg/3 mL) subcutaneous pen injector RxNorm: 3911033 Take 1 Unit Dose Subcutaneous QWeek Tuesday 022 2021 Inactive lisinopril 2.5 mg tablet RxNorm: 648887 Take 1 Tablet(s) Oral every day 022 2021 Inactive lisinopril 2.5 mg tablet RxNorm: 557475 Take 1 Tablet(s) Oral every day 022 2022 Inactive hydrochlorothiazide 25 mg tablet RxNorm: 385679 Take 1 Tablet(s) Oral every day 022 2021 Inactive Ozempic 1 mg/dose (4 mg/3 mL) subcutaneous pen injector RxNorm: 1736735 Take 1 Unit Dose Subcutaneous QWeek 022 2021 Inactive famotidine 20 mg tablet RxNorm: 736220 Take 1 Tablet(s) Oral every morning 2021 Inactive levothyroxine 50 mcg tablet RxNorm: 396267 Take 1 Tablet(s) Oral every day 2021 Inactive atorvastatin 20 mg tablet RxNorm: 284941 Take 1 Tablet(s) Oral every night at bedtime 2021 Inactive Cleocin T 1 % lotion RxNorm: 672730 Take 2 Gram(s) Topical every day 022 2021 Inactive Cleocin T 1 % lotion RxNorm: 056095 Take 2 Gram(s) Topical every day 2021 Inactive Ozempic 1 mg/dose (4 mg/3 mL) subcutaneous pen injector RxNorm: 2724337 Take 1 Unit Dose Subcutaneous QWeek 022 2021 Inactive Ozempic 0.25 mg or 0.5 mg (2 mg/1.5 mL) subcutaneous pen injector RxNorm: 7366012 INJECT 0.5 MGS SUBCUTANEOUSLY EVERY WEEK 022 2021 Inactive omeprazole 20 mg capsule,delayed release RxNorm: 408153 Take 1 Capsule(s) Oral every evening 2021 Inactive levothyroxine 50 mcg tablet RxNorm: 367617 Take 1 Tablet(s) Oral every day 022 2021 Inactive atorvastatin 20 mg tablet RxNorm: 017347 Take 1 Tablet(s) Oral every night at bedtime 2021 Inactive This refill negates all other refills of this medication lisinopril 2.5 mg tablet RxNorm: 378581 Take 1 Tablet(s) Oral every day 022 2021 Inactive gabapentin 300 mg capsule RxNorm: 975228 Take 1 Capsule(s) Oral three times a day 2021 Inactive montelukast 10 mg tablet RxNorm: 087959 Take 1 Tablet(s) Oral every day 2021 Inactive Myrbetriq 50 mg tablet,extended release RxNorm: 5855593 1 Tablet(s) Oral every day No Stop Date Active cholecalciferol (vitamin D3) 50 mcg (2,000 unit) tablet RxNorm: 094734 Take 1 Tablet(s) Oral every day 2022 Inactive Ozempic 0.25 mg or 0.5 mg (2 mg/1.5 mL) subcutaneous pen injector RxNorm: 3611128 inject 0.5 milligrams subcutaneously every week 2021 Inactive Ozempic 0.25 mg or 0.5 mg (2 mg/1.5 mL) subcutaneous pen injector RxNorm: 8658677 Take 0.5 Capsule(s) Injection once a week 022 2021 Inactive omeprazole 20 mg capsule,delayed release RxNorm: 489372 Take 1 Capsule(s) Oral every evening 2020 Inactive Ozempic 0.25 mg or 0.5 mg (2 mg/1.5 mL) subcutaneous pen injector RxNorm: 4799585 Take 0.25 Milligram(s) Subcutaneous once a week 2021 Inactive Easy Touch Alcohol Prep Pads RxNorm: 038859 USE DIRECTED EACH MORNING 021 2021 Inactive Probiotic 10 billion cell capsule RxNorm: 3051829 Take 1 Capsule(s) Oral every day 021 2021 Inactive levothyroxine 50 mcg tablet RxNorm: 086751 Take 1 Tablet(s) Oral every day 021 2020 Inactive Acid Cannoneer (famotidine) 20 mg tablet RxNorm: 478818 Take 1 Tablet(s) Oral every morning 021 2020 Inactive Heartburn Relief (famotidine) 10 mg tablet RxNorm: 196037 Take 1 Tablet(s) Oral QAM 021 2020 Inactive levothyroxine 50 mcg tablet RxNorm: 866917 Take 1 Tablet(s) Oral QD 021 2020 Inactive Singulair 10 mg tablet RxNorm: 655294 TAKE (1) TABLET BY MOUTH DAILY 021 2020 Inactive metformin 1,000 mg tablet RxNorm: 168818 1 Tablet(s) Oral two times a day 2021 Inactive lisinopril 2.5 mg tablet RxNorm: 267566 Take 1 Tablet(s) Oral every day 021 2020 Inactive hydrochlorothiazide 25 mg tablet RxNorm: 892306 Take 1 Tablet(s) Oral every day 021 2020 Inactive ondansetron 4 mg disintegrating tablet RxNorm: 496210 1 Tablet(s) Oral two times a day 021 2020 Inactive Sudafed 12 Hour 120 mg tablet,extended release RxNorm: 9270948 TAKE 1 TABLET BY MOUTH EVERY 12 HOURS NEEDED 2021 Inactive Heartburn Relief (famotidine) 10 mg tablet RxNorm: 101059 Take 1 Tablet(s) Oral every morning 021 2020 Inactive omeprazole 20 mg capsule,delayed release RxNorm: 500717 1 Capsule(s) Oral every evening 021 2020 Inactive sertraline 100 mg tablet RxNorm: 022756 2 Tablet(s) Oral every day 021 2020 Inactive levothyroxine 50 mcg tablet RxNorm: 635636 TAKE (1) TABLET BY MOUTH DAILY 021 2020 Inactive metformin 500 mg tablet RxNorm: 599736 1 Tablet(s) Oral two times a day take with 500mg to equal 1000mg 021 2020 Inactive gabapentin 300 mg capsule RxNorm: 389260 TAKE 1 CAPSULE BY MOUTH THREE TIMES A DAY 021 2020 Inactive lisinopril 2.5 mg tablet RxNorm: 916052 TAKE 1 TABLET BY MOUTH DAILY 021 2020 Inactive gabapentin 300 mg capsule RxNorm: 006533 TAKE 1 CAPSULE BY MOUTH THREE TIMES A DAY 021 2020 Inactive Singulair 10 mg tablet RxNorm: 274501 TAKE (1) TABLET BY MOUTH DAILY 2020 Inactive metformin 1,000 mg tablet RxNorm: 091619 1 Tablet(s) Oral two times a day 2020 Inactive atorvastatin 40 mg tablet RxNorm: 684039 1 Tablet(s) Oral every day 021 2020 Inactive omeprazole 20 mg capsule,delayed release RxNorm: 681542 1 Capsule(s) Oral every evening 2020 Inactive famotidine 10 mg tablet RxNorm: 714245 1 Tablet(s) Oral every morning 021 2020 Inactive Alcohol Prep Pads RxNorm: 965500 USE EACH MORNING 021 2020 Inactive omeprazole 20 mg capsule,delayed release RxNorm: 063814 1 Capsule(s) Oral two times a day 021 2021 Inactive omeprazole 20 mg capsule,delayed release RxNorm: 300543 TAKE 1 CAPSULE BY MOUTH EVERY DAY 2021 Inactive Macrobid 100 mg capsule RxNorm: 015004 1 Capsule(s) Oral every 12 hours with food 2020 Inactive omeprazole 20 mg capsule,delayed release RxNorm: 090106 1 Capsule(s) Oral two times a day 2021 Inactive metformin 1,000 mg tablet RxNorm: 706813 1 Tablet(s) Oral two times a day 2020 Inactive start on September 11, 2020 metformin 500 mg tablet RxNorm: 364210 1 Tablet(s) Oral two times a day take with 500mg to equal 1000mg 2019 Inactive gabapentin 300 mg capsule RxNorm: 160194 TAKE 1 CAPSULE BY MOUTH THREE TIMES DAILY 2020 Inactive cetirizine 10 mg tablet RxNorm: 1862440 TAKE (1) TABLET BY MOUTH DAILY 2020 Inactive metformin 500 mg tablet RxNorm: 514119 1 Tablet(s) Oral two times a day 2019 Inactive loperamide 2 mg tablet RxNorm: 546264 1 Tablet(s) Oral as needed take one tablet after each loose stool, maximum of 8 tablets in 24 hours 2021 Inactive Sudafed 12 Hour 120 mg tablet,extended release RxNorm: 1815038 TAKE 1 TABLET BY MOUTH EVERY 12 HOURS NEEDED 2019 Inactive hydrochlorothiazide 25 mg tablet RxNorm: 628435 TAKE (1) TABLET BY MOUTH EVERY DAY 2019 Inactive omeprazole 20 mg capsule,delayed release RxNorm: 601346 TAKE 1 CAPSULE BY MOUTH EVERY DAY 2020 Inactive metformin 500 mg tablet RxNorm: 790840 1 Tablet(s) Oral every day 2019 Inactive True Metrix Glucose Test Strip RxNorm: 1 Test Strips Miscellaneous two times a day as needed No Stop Date Active metformin 500 mg tablet RxNorm: 839094 1 Tablet(s) Oral every day 2019 Inactive diclofenac sodium 75 mg tablet,delayed release RxNorm: 263393 1 Tablet(s) PO BID 2021 Inactive This refill negates all other refills of this medication Sudafed 12 Hour 120 mg tablet,extended release RxNorm: 3845897 TAKE 1 TABLET BY MOUTH EVERY 12 HOURS NEEDED 020 2019 Inactive True Metrix Glucose Test Strip RxNorm: 1 Test Strips Miscellaneous every morning 020 2019 Inactive 100/container True Metrix Glucose Test Strip RxNorm: 1 Test Strips Miscellaneous QAM 020 2019 Inactive 100/container loperamide 2 mg tablet RxNorm: 123322 1 Tablet(s) Oral as needed take one tablet after each loose stool, maximum of 8 tablets in 24 hours 2019 Inactive cetirizine 10 mg tablet RxNorm: 0530822 1 Tablet(s) PO daily 2019 Inactive loperamide 2 mg tablet RxNorm: 240080 1 Tablet(s) Oral as needed take one tablet after each loose stool, maximum of 8 tablets in 24 hours 020 2019 Inactive quetiapine 100 mg tablet RxNorm: 768511 1 Tablet(s) Oral every night at bedtime 2019 Inactive levothyroxine 50 mcg tablet RxNorm: 101505 1 Tablet(s) PO daily 2020 Inactive gabapentin 300 mg capsule RxNorm: 636975 1 Capsule(s) PO TID 2019 Inactive levothyroxine 50 mcg tablet RxNorm: 044775 1 Tablet(s) PO daily 2019 Inactive lisinopril 2.5 mg tablet RxNorm: 995293 1 Tablet(s) PO daily 020 2020 Inactive gabapentin 300 mg capsule RxNorm: 051561 1 Capsule(s) PO TID 2019 Inactive cetirizine 10 mg tablet RxNorm: 3521104 1 Tablet(s) PO daily 020 2019 Inactive Singulair 10 mg tablet RxNorm: 580376 1 Tablet(s) PO daily 020 2020 Inactive gentamicin 0.3 % eye drops RxNorm: 487033 1 Drop(s) ophthalmic (eye) four times a day 2019 Inactive gentamicin 0.3 % eye drops RxNorm: 390392 1 Drop(s) ophthalmic (eye) four times a day 020 2019 Inactive gentamicin 0.3 % eye drops RxNorm: 649642 1 Drop(s) ophthalmic (eye) four times a day 2019 Inactive hydrochlorothiazide 25 mg tablet RxNorm: 604003 1 Tablet(s) Oral every day 2019 Inactive Sudafed 12 Hour 120 mg tablet,extended release RxNorm: 3042938 TAKE (1) TABLET BY MOUTH EVERY 12 HOURS NEEDED 2019 Inactive loperamide 2 mg tablet RxNorm: 218272 1 Tablet(s) Oral as needed take one tablet after each loose stool, maximum of 8 tablets in 24 hours 2019 Inactive loperamide 2 mg tablet RxNorm: 211312 1 Tablet(s) Oral as needed take one tablet after each loose stool, maximum of 8 tablets in 24 hours 2019 Inactive atorvastatin 40 mg tablet RxNorm: 192652 1 Tablet(s) Oral every day 2020 Inactive quetiapine 100 mg tablet RxNorm: 655590 1 Tablet(s) Oral every night at bedtime 2019 Inactive sertraline 100 mg tablet RxNorm: 865479 1 Tablet(s) Oral 2019 Inactive omeprazole 20 mg capsule,delayed release RxNorm: 841522 1 Capsule(s) Oral every day 2019 Inactive amoxicillin 250 mg capsule RxNorm: 134063 1 Capsule(s) Oral three times a day 2019 Inactive multivitamin with iron-mineral tablet RxNorm: 1 Tablet(s) Oral every day 2021 Inactive cetirizine 10 mg tablet RxNorm: 6900672 1 Tablet(s) PO daily 2019 Inactive This refill negates all other refills of this medication. Please do not auto refill Singulair 10 mg tablet RxNorm: 514742 1 Tablet(s) PO daily 2019 Inactive This refill negates all other refills of this medication gabapentin 300 mg capsule RxNorm: 641085 1 Capsule(s) PO TID 2019 Inactive lisinopril 2.5 mg tablet RxNorm: 985866 1 Tablet(s) PO daily 2019 Inactive levothyroxine 50 mcg tablet RxNorm: 363271 1 Tablet(s) PO daily 2019 Inactive This refill negates all other refills of this medication hydrochlorothiazide 25 mg tablet RxNorm: 073277 1 Tablet(s) Oral every day 2019 Inactive fenugreek seed extract 500 mg capsule RxNorm: 1 Capsule(s) Oral three times a day 2021 Inactive Alcohol Prep Pads RxNorm: 657625 1 Patch TOP QAM 2020 Inactive loperamide 2 mg tablet RxNorm: 231013 1 Tablet(s) Oral as needed take one [...] 2019 Inactive hydrochlorothiazide 25 mg tablet RxNorm: 741410 1 Tablet(s) Oral every day 2019 Inactive Sudafed 12 Hour 120 mg tablet,extended release RxNorm: 0671626 1 Tablet(s) Oral every 12 hours as needed 019 2018 Inactive omeprazole 20 mg capsule,delayed release RxNorm: 204614 1 Capsule(s) Oral every day 019 2019 Inactive Sudafed 12 Hour 120 mg tablet,extended release RxNorm: 4154734 1 Tablet(s) Oral every 12 hours as needed 2018 Inactive pantoprazole 40 mg tablet,delayed release RxNorm: 960943 1 Tablet(s) Oral every day 019 2018 Inactive discontinue any other H2Blkr. and PPI albuterol sulfate 2.5 mg/3 mL (0.083 %) solution for nebulization RxNorm: 984220 1 Vial Inhalation every four hours as needed as needed for dyspnea 2019 Inactive 60/box. This refill negates all other refills of this medication. Please do not fill early. Please do not auto refill. Symbicort 160 mcg-4.5 mcg/actuation HFA aerosol inhaler RxNorm: 8071818 2 Puff(s) INH BID No Stop Date Active Alcohol Prep Pads RxNorm: 651129 1 Patch TOP QAM 019 2019 Inactive Ventolin HFA 90 mcg/actuation aerosol inhaler RxNorm: 057599 2 Puff(s) INH QID 019 2019 Inactive Please do not fill early. Please do not auto refill. This refill negates all other refills of this medication True Metrix Glucose Test Strip RxNorm: 1 Test Strips Miscellaneous QAM 019 2019 Inactive 100/container atorvastatin 40 mg tablet RxNorm: 197849 1 Tablet(s) Oral every day 019 2019 Inactive buspirone 7.5 mg tablet RxNorm: 621753 1 Tablet(s) PO BID 019 2020 Inactive This refill negates all other refills of this medication hydrochlorothiazide 12.5 mg tablet RxNorm: 005139 1 Tablet(s) PO QAM 019 2019 Inactive levmetamfetamine 50 mg nasal inhaler RxNorm: 1 Unit(s) NASAL Q3-4H Do not use more than every 3 hours or 8 times/24hours 019 2021 Inactive Please do not auto refill. This refill negates all other refills of this medication Ventolin HFA 90 mcg/actuation aerosol inhaler RxNorm: 122051 2 Puff(s) INH QID 019 2018 Inactive Please do not fill early. Please do not auto refill. This refill negates all other refills of this medication Singulair 10 mg tablet RxNorm: 234995 1 Tablet(s) PO daily 019 2019 Inactive This refill negates all other refills of this medication cetirizine 10 mg tablet RxNorm: 7919114 1 Tablet(s) PO daily 019 2019 Inactive This refill negates all other refills of this medication. Please do not auto refill levothyroxine 50 mcg tablet RxNorm: 456075 1 Tablet(s) PO daily 019 2019 Inactive This refill negates all other refills of this medication diclofenac sodium 75 mg tablet,delayed release RxNorm: 824974 1 Tablet(s) PO BID 019 2019 Inactive This refill negates all other refills of this medication ranitidine 150 mg tablet RxNorm: 672363 1 Tablet(s) PO BID 019 2018 Inactive This refill negates all other refills of this medication Calcium 600-D3 Plus (mag-zinc) 600 mg calcium-800 unit-50 mg tablet RxNorm: 1 Tablet(s) PO daily take an additonal tablet for itching. 019 2018 Inactive This refill negates all other refills of this medication albuterol sulfate 2.5 mg/3 mL (0.083 %) solution for nebulization RxNorm: 927075 1 Vial INH QID 019 2018 Inactive 60/box. This refill negates all other refills of this medication. Please do not fill early. Please do not auto refill. lisinopril 2.5 mg tablet RxNorm: 075156 1 Tablet(s) PO daily 019 2019 Inactive gabapentin 300 mg capsule RxNorm: 195709 1 Capsule(s) PO TID 019 2019 Inactive atorvastatin 20 mg tablet RxNorm: 823351 1 Tablet(s) PO QHS 2018 Inactive This refill negates all other refills of this medication TRUEplus Lancets 30 gauge RxNorm: 1 Lancets Miscellaneous QAM 2018 Inactive 100/box gabapentin 300 mg capsule RxNorm: 047226 1 Capsule(s) PO TID 2018 Inactive Flintstones Complete (iron) 18 mg iron chewable tablet RxNorm: 1 Tablet(s) PO daily 2021 Inactive This refill negates all other refills of this medication gabapentin 300 mg capsule RxNorm: 113641 1 Capsule(s) PO TID as needed 2018 Inactive True Metrix Glucose Test Strip RxNorm: 1 Test Strips Miscellaneous QA 2018 Inactive 100/container Alcohol Prep Pads RxNorm: 924042 1 Patch TOP QA 2018 Inactive TRUEplus Lancets 30 gauge RxNorm: 1 Lancets Miscellaneous QAM 019 2018 Inactive 100/box lisinopril 2.5 mg tablet RxNorm: 639343 1 Tablet(s) PO daily 019 2018 Inactive ranitidine 150 mg tablet RxNorm: 419008 1 Tablet(s) PO BID 2018 Inactive This refill negates all other refills of this medication albuterol sulfate 2.5 mg/3 mL (0.083 %) solution for nebulization RxNorm: 116908 1 Vial INH QID 019 2018 Inactive [...] this medication gabapentin 300 mg capsule RxNorm: 708060 1 Capsule(s) PO TID as needed 019 2018 Inactive atorvastatin 20 mg tablet RxNorm: 689642 1 Tablet(s) PO QHS 019 2018 Inactive This refill negates all other refills of this medication trazodone 50 mg tablet RxNorm: 675074 1 Tablet(s) PO QHS 019 2018 Inactive This refill negates all other refills of this medication Ventolin HFA 90 mcg/actuation aerosol inhaler RxNorm: 537788 2 Puff(s) INH QID 019 2018 Inactive Please do not fill early. Please do not auto refill. This refill negates all other refills of this medication Calcium 600-D3 Plus 600 mg calcium-800 unit-50 mg tablet RxNorm: 1 Tablet(s) PO daily take an additonal tablet for itching. 019 2018 Inactive This refill negates all other refills of this medication Singulair 10 mg tablet RxNorm: 346365 1 Tablet(s) PO daily 019 2018 Inactive This refill negates all other refills of this medication buspirone 7.5 mg tablet RxNorm: 874572 1 Tablet(s) PO BID 019 2018 Inactive This refill negates all other refills of this medication diclofenac sodium 75 mg tablet,delayed release RxNorm: 737483 1 Tablet(s) PO BID 019 2018 Inactive This refill negates all other refills of this medication hydrochlorothiazide 12.5 mg tablet RxNorm: 324626 1 Tablet(s) PO QAM 019 2018 Inactive metoprolol succinate ER 50 mg tablet,extended release 24 hr RxNorm: 796836 1 Tablet(s) PO daily 019 2018 Inactive This refill negates all other refills of this medication levothyroxine 50 mcg tablet RxNorm: 201715 1 Tablet(s) PO daily 019 2018 Inactive This refill negates all other refills of this medication cetirizine 10 mg tablet RxNorm: 6499646 1 Tablet(s) PO daily 019 2018 Inactive This refill negates all other refills of this medication. Please do not auto refill Flintstones Complete (iron) 18 mg iron chewable tablet RxNorm: 1 Tablet(s) PO daily 019 2018 Inactive This refill negates all other refills of this medication buspirone 7.5 mg tablet RxNorm: 079232 1 Tablet(s) PO BID 2018 Inactive cetirizine 10 mg tablet RxNorm: 8466709 1 Tablet(s) PO daily 2018 Inactive Guaiasorb DM 10 mg-100 mg/5 mL oral liquid RxNorm: 865075 10 Milliliter(s) PO As needed every 4 hr 2018 Inactive Vicks Vaporub 4.7 %-1.2 %-2.6 % topical ointment RxNorm: 6214545 1 Application TOP TID 2018 Inactive levmetamfetamine 50 mg nasal inhaler RxNorm: 1 Unit(s) NASAL Q3-4H 2017 Inactive sertraline 50 mg tablet RxNorm: 047106 1 Tablet(s) PO daily 2018 Inactive Please note dose trazodone 50 mg tablet RxNorm: 052950 1 Tablet(s) PO QHS 018 2018 Inactive sertraline 50 mg tablet RxNorm: 421435 1 Tablet(s) PO daily 018 2017 Inactive amoxicillin 500 mg tablet RxNorm: 327237 1 Tablet(s) PO Q12H 018 2017 Inactive albuterol sulfate 2.5 mg/3 mL (0.083 %) solution for nebulization RxNorm: 582998 1 Vial INH QID 018 2018 Inactive 60/box. Please do not fill early. Please do not auto refill. Prozac 10 mg capsule RxNorm: 633973 1 Capsule(s) PO daily 018 2017 Inactive buspirone 7.5 mg tablet RxNorm: 841783 1 Tablet(s) PO BID 018 2018 Inactive gabapentin 300 mg capsule RxNorm: 024020 1 Capsule(s) PO TID as needed 018 2018 Inactive hydrochlorothiazide 12.5 mg tablet RxNorm: 623807 1 Tablet(s) PO QAM 018 2018 Inactive ranitidine 150 mg tablet RxNorm: 125806 1 Tablet(s) PO BID 018 2018 Inactive Macrobid 100 mg capsule RxNorm: 327667 1 Capsule(s) PO Q12H 018 2017 Inactive Singulair 10 mg tablet RxNorm: 985598 1 Tablet(s) PO daily 018 2018 Inactive Ventolin HFA 90 mcg/actuation aerosol inhaler RxNorm: 9526735 2 Puff(s) INH QID 018 2018 Inactive Singulair 10 mg tablet RxNorm: 783786 1 Tablet(s) PO daily 018 2017 Inactive buspirone 7.5 mg tablet RxNorm: 488718 1 Tablet(s) PO BID 018 2017 Inactive Prozac 10 mg capsule RxNorm: 435200 1 Capsule(s) PO daily 018 2017 Inactive diclofenac sodium 75 mg tablet,delayed release RxNorm: 172703 1 Tablet(s) PO BID 018 2017 Inactive lisinopril 2.5 mg tablet RxNorm: 951965 1 Tablet(s) PO daily 018 2017 Inactive Neilmed Pediatric Sinus Rinse Refill packet RxNorm: 1 Unit Dose NASAL PRN 018 2021 Inactive metoprolol succinate ER 50 mg tablet,extended release 24 hr RxNorm: 540101 1 Tablet(s) PO daily 018 2017 Inactive levothyroxine 50 mcg tablet RxNorm: 520312 1 Tablet(s) PO daily 018 2017 Inactive TRUEplus Lancets 30 gauge RxNorm: 1 Lancets Miscellaneous QAM 018 2017 Inactive 100/box Ventolin HFA 90 mcg/actuation aerosol inhaler RxNorm: 198390 2 Puff(s) INH QID 018 2017 Inactive Aleve 220 mg capsule RxNorm: 9460451 1 Capsule(s) PO BID 018 2018 Inactive ranitidine 150 mg tablet RxNorm: 465807 1 Tablet(s) PO BID 018 2017 Inactive gabapentin 300 mg capsule RxNorm: 289050 1 Capsule(s) PO TID as needed 018 2017 Inactive atorvastatin 20 mg tablet RxNorm: 987088 1 Tablet(s) PO QHS 018 2017 Inactive True Metrix Glucose Test Strip RxNorm: 1 Test Strips Miscellaneous QAM 018 2017 Inactive 50/container Calcium 600-D3 Plus 600 mg calcium-800 unit-50 mg tablet RxNorm: 1 Tablet(s) PO daily take an additonal tablet for itching. 018 2017 Inactive hydrochlorothiazide 12.5 mg tablet RxNorm: 994624 1 Tablet(s) PO QAM 018 2017 Inactive Flintstones Complete (iron) 18 mg iron chewable tablet RxNorm: 1 Tablet(s) PO daily 018 2017 Inactive True Metrix Glucose Meter RxNorm: miscellaneous 019 2018 Inactive sertraline 50 mg tablet RxNorm: 791289 1 Tablet(s) PO daily 020 2019 Inactive loperamide 2 mg tablet RxNorm: 408202 oral 019 2018 Inactive d-mannose oral powder RxNorm: PO 018 2021 Inactive Symbicort 160 mcg-4.5 mcg/actuation HFA aerosol inhaler RxNorm: 0637863 2 Puff(s) INH BID 019 2018 Inactive Medication Administered No Medication Administered data Procedures Procedure Codes Date Patient Health Questionnaire CPT-4: DPHQ Pain Screening CPT-4: PAS 2022 Tobacco Assessment/Screening CPT-4: TCA Hypertension CPT-4: HTN 08/17/2022 Buxton Fany Assessment CPT-4: DSWA 04/02 Patient Health [...] CPT-4: VACP Fall Risk Assessment SNOMED CT: 87391127 4 CPT-4: DFRA01/13/2021emmes Fany AssessmentCPT-4: DSWA12/17/2020Urinalysis, dip stickCPT-4: 4287414Patient Health QuestionnaireCPT-4: DPHQ 08/19/2020ElectrocardiogramCPT-4: 8659126Tobacco Assessment/Screening CPT-4: TCA01/01/2020Fall Risk AssessmentSNOMED CT: 922305111 CPT-4: DFRA01/01/2020Functional AssessmentCPT-4: DFA01/01/2020Semmes Fany AssessmentCPT-4: DSWA11/28/2019Patient Health QuestionnaireCPT-4: DPHQ11/28/2019 Buxton Fany AssessmentCPT-4: DSWA10/17/2019HypertensionCPT-4: HTN10/17/[address]: 939237886 CPT-4: DFRA09/19/2019Functional AssessmentCPT-4: DFA111/20/2018Urinalysis, dip stickCPT-4: 2010799Tobacco Assessment/ScreeningCPT-4: TCA05/24/2019 Patient Health QuestionnaireCPT-4: DPHQ05/24/2019AHA/REBECCA Classification AssessmentCPT-4: DAHA04/25/2019Controlled Substance ReportCPT-4: CTRSU04/25/2019 Urinalysis, dip stickCPT-4: 977652103/28/2019Urinalysis, dip stickCPT-4: 31809 03/28/20192473I5K-SxxhsdyxoomgrtdQIO-2: 68444JjpfqkpD1A-YehazvsnpravotjBPY-2: 17662 RylmmsxY9M-IexvkyofslxzlauFBK-9: 11030PclmfcgS7J-NpjzmfmeanhicruWGO-9: 71153 XywgtxgV3D-YrjnyayavgmghimTBS-0: 46144JoedkyfM3S-YaaksbfahwopxsjZQO-3: 78380 VaygyxlC3Y-AzaxahigxtojtzkCJK-6: 52783NpjxthcT0P-SmxtngsjkhyrqkuSDC-2: 71063 PgvjmsaR8D-KbrtxcvzuspqgsvVXZ-6: 78883DydymcpC5E-FclaznknwwzzaktDEJ-1: 82588 GpchteyS3O-FmkijwycqbgguibQEY-2: 57957ZeapfjqInxwwqbqmq ReferralSNOMED CT: 521225045 CPT-4: I67Bwyxqeq Reason For Visit No Reason For Visit data Plan of Care Planned Activity Notes Codes Status Date Patient Education: Patient Medication Summary Vjevfjkrg58/23/2023Appointment: Anna Culver WPtel: [id number] [place] [address] [id number]: Palomo Anna WPtel: [id number] [place] [address] [id number]: Palomo Anna WPtel: [address] [place] [address] [id number]/17/2021ppointment: Anna Culver WPtel: [address] [place] [address] [id number]: Chivo Bishop WPtel: [address] [place] [address] [id number]: Chivo Bishop WPtel: [address] [place] [address] [id number]: Mikey Nair WPtel: [facility]0 [facility] [id number]: Chivo Bishop WPtel: [address] [place] [address] [id number]: Chivo Bishop WPtel: [address] [place] [address] [id number]: Chivo Bishop WPtel: [address] [place] [address] USET09/10/2021ppointment: Chivo Bishop WPtel: [address] [place] [address] USETV110/13/2020ppointment: Chivo Bishop WPtel: [phone] [place] [address] USETV10/ppointment: Chivo Bishop WPtel: [phone] [place] [address] ORITXY7606/10/2021ppointment: Anna Culver WPtel: [phone] [place] [address] USETV06/02/2021ppointment: Chivo Bishop WPtel: [phone] [place] [address] USETV05/20/2021ppointment: Anna Culver WPtel: [phone] [place] [address] USETV04/28/2021ppointment: Chivo Bishop WPtel: [address] [place] [address] USETV04/15/2021ppointment: Anna Culver WPtel: [address] [place] [address] [id number]: Anna Culver WPtel: [address] [place] [address] USETV03/24/2021ppointment: Anna Culver WPtel: [address] [place] [address] USETV03/13/2021ppointment: Anna Culver WPtel: [id number] [place] [address] [id number]: Chivo Bishop WPtel: [address] [place] [address] [id number]: Anna Culvre WPtel: [address] [place] [address] USETV01/13/2021ppointment: Anna Culver WPtel: [phone] [place] [address] [id number]: Chivo Bishop WPtel: [phone] [place] [address] [place] [address] USETV11/28/2020ppointment: Anna Culver WPtel: [phone] [place] [address] [place] [address] USETV11/24/2020ppointment: Anna Culver WPtel: [phone] [place] [address] [address] [place] [address] [id number]: Anna Culver WPtel: [address] [place] [address] HCX4864011/25/2019Appointment: Anna Culver WPtel: [address] [place] [address] [place] [address] USETV110/26/2019Appointment: Anna Culver WPtel: [address] [place] [address] [place] [address] USETV110/19/2019Appointment: Anna Culver WPtel: [address] [place] [address] [place] [address] USETV1Appointment: Anna Culver WPtel: [address] [place] [address] [place] [address] USETV1Appointment: Gianna Birmingham [facility]: [address] [facility] [address] KaywiynJI20924 YPLOQB1607/02/2020Appointment: Anna Culver WPtel: [address] [place] [address] [id number]: Anna Culver WPtel: [address] [place] [address] [place] [address] VTR15437/2020Appointment: Anna Culver WPtel: [phone] [place] [address] [id number]: Anna Culver WPtel: [phone] [place] [address] [id number]: Anna Culver WPtel: [address] [place] [address] [id number]: Anna Culver WPtel: [address] [place] [address] [id number]: Anna Culver WPtel: [address] [place] [address] [id number]: Anna Culver WPtel: [address] [place] [address] [id number]: Anna Culver WPtel: [address] [place] [address] [id number]: Anna Culver WPtel: [address] [place] [address] ZLS8304211/20/2018Appointment: Sudha Hernadez WPtel: [address] [facility] [id number]: Sudha Hernadez WPtel: [address] [facility] [place] [address] [id number]: Charlene Oropeza WPtel: [address] [facility] [id number]: Enedelia [id number]: Charlene Oropeza WPtel: [address] [facility] [address] [id number]: Rasta Palafox WPtel: [address] [facility] [address] [id number]: Rasta Palafox WPtel: [address] [facility] [address] [id number]: Rasta Palafox WPtel: [address] [facility] b [id number]: Rasta Palafox WPtel: [address] [facility] b [id number]: Pending Gynecology Referral InformationReferral ProcessedReferral: Pending Pulmonology Referral InformationReferralProcessed Referral: Pending Psychiatry Referral InformationReferralInitiatedReferral: Pending Respiratory Services Referral InformationReferralInitiatedReferral: Pending Ophthalmology Referral InformationReferralInitiatedReferral: [facility] WPtel: [address] [facility] 200 [place] USWriter placed a call out to the patient to notify her that it has been recommended that she be seenby a urologist. Patient agreed to be seen, does not have a provider of choice and no transportationissues. [employer] faxed referral and clinical notes to [facility] in [place], [place] near the patient's home. Patient [...] seen and prefers a provider in the [place] or [place] area. [employer] placed a call out to everyone listed in the area and the only location that was able to accept the patient's insurance was [place] [address] [place] [address] and spoke with Maylin. Maylin asked that the patient's referral, face sheet and visit notes be faxed to . [employer] faxed over requested documents. Patient appointment confirmation letter generated and mailed to her home address. Patient to call to schedule an appointment.ProcessedReferral: [facility] WPtel: [address] [facility] [address] [place], [place] [id number] USPatient notified that it has been advised that she be seen by Neurology. Patient agreed to be seen and prefers to be seen by a provider in the [place], [place] area. Patient denies any concerns with transportation, and prefers to schedule her own appointment. [employer] placed a call out to [facility] [...]
--- OUTSIDE RECORDS SUMMARY | 2023-12-07 02:22 | XMS_ITS | CCD ---
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 Tube Depatcher Name Role Phone Palomo KING, Anna Primary Care Provider Unav ailable Unavailable Chronic Care Management Unavaila ble Summary Purpose DataExchange Insurance Providers Payer name Policy type / Coverage type Covered green party ID Effective Begin Date Effective End Date [employer] [facility] [id number] Unknown Unknown Family history Mother Diagnosis Age [...] 05/31/2018 Education level Unknown Some High School 10th05/31/20187399ZdsmtiabefWwaobdfUfxgyuujhy01/29/2018Tobacco historySNOMED CT: 645341522Mee never smoked or chewed [id number]/31/2018Alcohol historySNOMED CT: 383385041Kubib drinks [id number]/31/2018Has the patient ever used illegal drugs? UnknownHas never used illegal drugs05/31/2018DNR Order/ Advanced Directive UnknownFull Code05/31/2018 Allergies, Adverse Reactions, Alerts Substance Reaction Codes Entered Date Inactivated Date Status OxyContin itch, RxNorm: 668756 01/13/2021 No Inactive Da te Active *No known food allergies Emvddkl2609/06/2018No Inactive DateActiveMethylprednisolonehivesRxNorm: 6902 09/06/2018No Inactive DateActive Problems Condition Codes Effective Dates Condition St atus Adult BMI 50.0-59.9 kg/sq m ICD-10: Z68. 43 ICD-9: V85.43005/30/2018ActiveEncounter for screening for tobacco useICD-10: Z01.89 ICD-9: V72.8501/ctiveHypertensive heart diseaseICD-10: I11.9 ICD-9: 402.9003/ctiveMajor depression, recurrentICD-10: F33.9 ICD-9: 296.3009/ctiveOpen wound of right middle fingerICD-10: S61.A ICD-9: 883.001/ctiveType 2 diabetes mellitus with peripheral neuropathy ICD-10: E11.42 ICD-9: 250.6002/ActiveEncounter for immunizationICD-10: Z23 ICD-9: V04.8111/ctiveFungal infection of skinICD-10: B36.9 ICD-9: 111.911/ctiveHypertensionICD-10: I10 ICD-9: 401.903/ctiveInfluenza vaccine refusedICD-10: Z28.21 ICD-9: V64.0609/ctiveAsthmaICD-10: J45.909 ICD-9: 493.9011/03/2018ActiveGERD (gastroesophageal reflux disease)ICD-10: K21.9 ICD-9: 530.8112ActiveObstructive sleep apnea (adult) (pediatric)ICD-10: G47.33 ICD-9: 327.2309/ActivePost-traumatic stress disorder, unspecifiedICD-10: F43.10 ICD-9: 309.8112ActiveAdjustment disorder with mixed anxiety and depressed moodICD-10: F43.23 ICD-9: 309.2812/01/2018ActiveAnkle sprainICD-10: S93.409A ICD-9: 845.0010/ctiveHypothyroidICD-10: E03.9 ICD-9: 244.912/01/2018ActiveAbscessICD-10: L02.91 ICD-9: 682.907/ctiveHyperlipidemia, mixedICD-10: E78.2 ICD-9: 272.203/2Active(Z00.00-V70.9) Encounter for general adult medical examination without abnormal findingsICD-10: Z00.00 ICD-9: V70.905/2ActiveAllergic rhinitisICD-10: J30.9 ICD-9: 477.903/ctiveEdema, unspecifiedICD-10: R60.9 ICD-9: [...] ICD-9: 790.504/esolvedEncounter for screening, unspecifiedICD-10: Z13.9 ICD-9: V82.912/01/2018ResolvedFamily history of seizuresICD-10: Z84.89 ICD-9: V19.807/esolvedHyperlipidemia, unspecifiedICD-10: E78.5 ICD-9: 272.408/ResolvedLong term (current) use of non-steroidal anti- inflammatories (NSAID)ICD-10: Z79.1 ICD-9: V58.6409/08/2018ResolvedPatient Not SeenICD-10: UXZ.01 ICD-9: XZ0.107ResolvedPatient not seenICD-10: UXZ.01 ICD-9: UXZ.0112/esolvedUpper respiratory infectionICD-10: J06.9 ICD-9: 465.908/esolvedSyncope and collapseICD-10: R55 ICD-9: 780.ActiveHistory of bladder surgeryICD-10: Z98.890 ICD-9: V45.8904/1ActiveUrinary retention [...] Fill Instructions gabapentin 300 mg capsule RxNorm: 471805 Take 1 Capsule(s) Oral three times a day 023 2022 Inactive montelukast 10 mg tablet RxNorm: 073212 Take 1 Tablet(s) Oral every day 023 2022 Inactive omeprazole 20 mg capsule,delayed release RxNorm: 180511 Take 1 Capsule(s) Oral every evening 2022 Inactive Alcohol Prep Pads RxNorm: 441825 USE EACH MORNING 2021 Inactive E11.42 clotrimazole 1 % topical cream RxNorm: 733244 Apply 1 Application Topical two times a day as needed apply to affected area(s) twice daily until healed 2021 Inactive Victoza 2-Sebastián 0.6 mg/0.1 mL (18 mg/3 mL) subcutaneous pen injector RxNorm: 766068 Inject 0.6-1.8 Milligram(s) Subcutaneous once a week Inject 0.6mg/0.1ml week one, 1.2mg/0.2ml week two, 1.8/0.3ml weekly thereafter 022 2021 Inactive ibuprofen 800 mg tablet RxNorm: 477625 Take 1 Tablet(s) Oral Q8H as needed for pain take with food No Stop Date Active Ozempic 1 mg/dose (4 mg/3 mL) subcutaneous pen injector RxNorm: 7591010 Take 1 Unit Dose Subcutaneous QWeek Tuesday2021 Inactive lisinopril 2.5 mg tablet RxNorm: 788959 Take 1 Tablet(s) Oral every day 022 2021 Inactive lisinopril 2.5 mg tablet RxNorm: 854132 Take 1 Tablet(s) Oral every day 022 2022 Inactive hydrochlorothiazide 25 mg tablet RxNorm: 211452 Take 1 Tablet(s) Oral every day 022 2021 Inactive Ozempic 1 mg/dose (4 mg/3 mL) subcutaneous pen injector RxNorm: 0883732 Take 1 Unit Dose Subcutaneous QWeek 022 2021 Inactive famotidine 20 mg tablet RxNorm: 172160 Take 1 Tablet(s) Oral every morning 2021 Inactive levothyroxine 50 mcg tablet RxNorm: 382027 Take 1 Tablet(s) Oral every day 022 2021 Inactive atorvastatin 20 mg tablet RxNorm: 232708 Take 1 Tablet(s) Oral every night at bedtime 2021 Inactive Cleocin T 1 % lotion RxNorm: 197420 Take 2 Gram(s) Topical every day 022 2021 Inactive Cleocin T 1 % lotion RxNorm: 912425 Take 2 Gram(s) Topical every day 022 2021 Inactive Ozempic 1 mg/dose (4 mg/3 mL) subcutaneous pen injector RxNorm: 2289445 Take 1 Unit Dose Subcutaneous QWeek 022 2021 Inactive Ozempic 0.25 mg or 0.5 mg (2 mg/1.5 mL) subcutaneous pen injector RxNorm: 0383436 INJECT 0.5 MGS SUBCUTANEOUSLY EVERY WEEK 2021 Inactive omeprazole 20 mg capsule,delayed release RxNorm: 196553 Take 1 Capsule(s) Oral every evening 2021 Inactive levothyroxine 50 mcg tablet RxNorm: 092298 Take 1 Tablet(s) Oral every day 2021 Inactive atorvastatin 20 mg tablet RxNorm: 774142 Take 1 Tablet(s) Oral every night at bedtime 2021 Inactive This refill negates all other refills of this medication lisinopril 2.5 mg tablet RxNorm: 324495 Take 1 Tablet(s) Oral every day 022 2021 Inactive gabapentin 300 mg capsule RxNorm: 447940 Take 1 Capsule(s) Oral three times a day 022 2021 Inactive montelukast 10 mg tablet RxNorm: 805937 Take 1 Tablet(s) Oral every day 042021 Inactive cholecalciferol (vitamin D3) 50 mcg (2,000 unit) tablet RxNorm: 695174 Take 1 Tablet(s) Oral every day 2022 Inactive Myrbetriq 50 mg tablet,extended release RxNorm: 0713271 1 Tablet(s) Oral every day No Stop Date Active Ozempic 0.25 mg or 0.5 mg (2 mg/1.5 mL) subcutaneous pen injector RxNorm: 7331023 inject 0.5 milligrams subcutaneously every week 2021 Inactive Ozempic 0.25 mg or 0.5 mg (2 mg/1.5 mL) subcutaneous pen injector RxNorm: 6426056 Take 0.5 Capsule(s) Injection once a week 2021 Inactive omeprazole 20 mg capsule,delayed release RxNorm: 105662 Take 1 Capsule(s) Oral every evening 2020 Inactive Ozempic 0.25 mg or 0.5 mg (2 mg/1.5 mL) subcutaneous pen injector RxNorm: 6891621 Take 0.25 Milligram(s) Subcutaneous once a week 2021 Inactive Easy Touch Alcohol Prep Pads RxNorm: 014351 USE DIRECTED EACH MORNING 2021 Inactive Probiotic 10 billion cell capsule RxNorm: 1245490 Take 1 Capsule(s) Oral every day 2021 Inactive levothyroxine 50 mcg tablet RxNorm: 770337 Take 1 Tablet(s) Oral every day 2020 Inactive Acid Lead Caster (famotidine) 20 mg tablet RxNorm: 060963 Take 1 Tablet(s) Oral every morning 2020 Inactive Heartburn Relief (famotidine) 10 mg tablet RxNorm: 700454 Take 1 Tablet(s) Oral QAM 2020 Inactive levothyroxine 50 mcg tablet RxNorm: 849760 Take 1 Tablet(s) Oral QD 021 2020 Inactive Singulair 10 mg tablet RxNorm: 480756 TAKE (1) TABLET BY MOUTH DAILY 021 2020 Inactive metformin 1,000 mg tablet RxNorm: 445583 1 Tablet(s) Oral two times a day 021 2021 Inactive lisinopril 2.5 mg tablet RxNorm: 061933 Take 1 Tablet(s) Oral every day 021 2020 Inactive hydrochlorothiazide 25 mg tablet RxNorm: 181363 Take 1 Tablet(s) Oral every day 021 2020 Inactive ondansetron 4 mg disintegrating tablet RxNorm: 465033 1 Tablet(s) Oral two times a day 021 2020 Inactive Sudafed 12 Hour 120 mg tablet,extended release RxNorm: 9301596 TAKE 1 TABLET BY MOUTH EVERY 12 HOURS NEEDED 2021 Inactive Heartburn Relief (famotidine) 10 mg tablet RxNorm: 171613 Take 1 Tablet(s) Oral every morning 021 2020 Inactive omeprazole 20 mg capsule,delayed release RxNorm: 215886 1 Capsule(s) Oral every evening 021 2020 Inactive sertraline 100 mg tablet RxNorm: 774805 2 Tablet(s) Oral every day 021 2020 Inactive levothyroxine 50 mcg tablet RxNorm: 502418 TAKE (1) TABLET BY MOUTH DAILY 021 2020 Inactive metformin 500 mg tablet RxNorm: 560083 1 Tablet(s) Oral two times a day take with 500mg to equal 1000mg 021 2020 Inactive gabapentin 300 mg capsule RxNorm: 434435 TAKE 1 CAPSULE BY MOUTH THREE TIMES A DAY 021 2020 Inactive lisinopril 2.5 mg tablet RxNorm: 743487 TAKE 1 TABLET BY MOUTH DAILY 021 2020 Inactive gabapentin 300 mg capsule RxNorm: 174871 TAKE 1 CAPSULE BY MOUTH THREE TIMES A DAY 021 2020 Inactive Singulair 10 mg tablet RxNorm: 913306 TAKE (1) TABLET BY MOUTH DAILY 021 2020 Inactive metformin 1,000 mg tablet RxNorm: 383812 1 Tablet(s) Oral two times a day 021 2020 Inactive atorvastatin 40 mg tablet RxNorm: 611715 1 Tablet(s) Oral every day 021 2020 Inactive omeprazole 20 mg capsule,delayed release RxNorm: 974351 1 Capsule(s) Oral every evening 021 2020 Inactive famotidine 10 mg tablet RxNorm: 104263 1 Tablet(s) Oral every morning 021 2020 Inactive Alcohol Prep Pads RxNorm: 148021 USE EACH MORNING 021 2020 Inactive omeprazole 20 mg capsule,delayed release RxNorm: 497206 1 Capsule(s) Oral two times a day 021 2021 Inactive omeprazole 20 mg capsule,delayed release RxNorm: 480070 TAKE 1 CAPSULE BY MOUTH EVERY DAY 2021 Inactive Macrobid 100 mg capsule RxNorm: 058463 1 Capsule(s) Oral every 12 hours with food 2020 Inactive omeprazole 20 mg capsule,delayed release RxNorm: 437830 1 Capsule(s) Oral two times a day 2021 Inactive metformin 1,000 mg tablet RxNorm: 745747 1 Tablet(s) Oral two times a day 2020 Inactive start on September 11, 2020 metformin 500 mg tablet RxNorm: 534632 1 Tablet(s) Oral two times a day take with 500mg to equal 1000mg 2019 Inactive gabapentin 300 mg capsule RxNorm: 088252 TAKE 1 CAPSULE BY MOUTH THREE TIMES DAILY 2020 Inactive cetirizine 10 mg tablet RxNorm: 2220032 TAKE (1) TABLET BY MOUTH DAILY 2021 Inactive metformin 500 mg tablet RxNorm: 540049 1 Tablet(s) Oral two times a day 020 2019 Inactive loperamide 2 mg tablet RxNorm: 772483 1 Tablet(s) Oral as needed take one tablet after each loose stool, maximum of 8 tablets in 24 hours 020 2021 Inactive Sudafed 12 Hour 120 mg tablet,extended release RxNorm: 8764906 TAKE 1 TABLET BY MOUTH EVERY 12 HOURS NEEDED 020 2019 Inactive hydrochlorothiazide 25 mg tablet RxNorm: 849214 TAKE (1) TABLET BY MOUTH EVERY DAY 020 2019 Inactive omeprazole 20 mg capsule,delayed release RxNorm: 807587 TAKE 1 CAPSULE BY MOUTH EVERY DAY 020 2020 Inactive metformin 500 mg tablet RxNorm: 867867 1 Tablet(s) Oral every day 020 2019 Inactive True Metrix Glucose Test Strip RxNorm: 1 Test Strips Miscellaneous two times a day as needed No Stop Date Active metformin 500 mg tablet RxNorm: 668780 1 Tablet(s) Oral every day 020 2019 Inactive diclofenac sodium 75 mg tablet,delayed release RxNorm: 230575 1 Tablet(s) PO BID 020 2021 Inactive This refill negates all other refills of this medication Sudafed 12 Hour 120 mg tablet,extended release RxNorm: 7920500 TAKE 1 TABLET BY MOUTH EVERY 12 HOURS NEEDED 020 2019 Inactive True Metrix Glucose Test Strip RxNorm: 1 Test Strips Miscellaneous every morning 020 2019 Inactive 100/container True Metrix Glucose Test Strip RxNorm: 1 Test Strips Miscellaneous QA 020 2019 Inactive 100/container loperamide 2 mg tablet RxNorm: 165837 1 Tablet(s) Oral as needed take one tablet after each loose stool, maximum of 8 tablets in 24 hours 020 2019 Inactive cetirizine 10 mg tablet RxNorm: 9512488 1 Tablet(s) PO daily 2019 Inactive loperamide 2 mg tablet RxNorm: 826954 1 Tablet(s) Oral as needed take one tablet after each loose stool, maximum of 8 tablets in 24 hours 2019 Inactive quetiapine 100 mg tablet RxNorm: 710057 1 Tablet(s) Oral every night at bedtime 2019 Inactive levothyroxine 50 mcg tablet RxNorm: 340373 1 Tablet(s) PO daily 2020 Inactive gabapentin 300 mg capsule RxNorm: 929385 1 Capsule(s) PO TID 2019 Inactive levothyroxine 50 mcg tablet RxNorm: 143857 1 Tablet(s) PO daily 2019 Inactive lisinopril 2.5 mg tablet RxNorm: 651610 1 Tablet(s) PO daily 2020 Inactive gabapentin 300 mg capsule RxNorm: 985031 1 Capsule(s) PO TID 2019 Inactive cetirizine 10 mg tablet RxNorm: 8253226 1 Tablet(s) PO daily 2019 Inactive Singulair 10 mg tablet RxNorm: 097726 1 Tablet(s) PO daily 2020 Inactive gentamicin 0.3 % eye drops RxNorm: 416719 1 Drop(s) ophthalmic (eye) four times a day 2019 Inactive gentamicin 0.3 % eye drops RxNorm: 800312 1 Drop(s) ophthalmic (eye) four times a day 2019 Inactive gentamicin 0.3 % eye drops RxNorm: 112492 1 Drop(s) ophthalmic (eye) four times a day 2019 Inactive hydrochlorothiazide 25 mg tablet RxNorm: 193899 1 Tablet(s) Oral every day 2019 Inactive Sudafed 12 Hour 120 mg tablet,extended release RxNorm: 7519589 TAKE (1) TABLET BY MOUTH EVERY 12 HOURS NEEDED 2019 Inactive loperamide 2 mg tablet RxNorm: 885006 1 Tablet(s) Oral as needed take one tablet after each loose stool, maximum of 8 tablets in 24 hours 020 2019 Inactive loperamide 2 mg tablet RxNorm: 692130 1 Tablet(s) Oral as needed take one tablet after each loose stool, maximum of 8 tablets in 24 hours 020 2019 Inactive atorvastatin 40 mg tablet RxNorm: 880411 1 Tablet(s) Oral every day 020 2020 Inactive quetiapine 100 mg tablet RxNorm: 866261 1 Tablet(s) Oral every night at bedtime 2019 Inactive sertraline 100 mg tablet RxNorm: 029127 1 Tablet(s) Oral 020 2019 Inactive omeprazole 20 mg capsule,delayed release RxNorm: 651660 1 Capsule(s) Oral every day 020 2019 Inactive amoxicillin 250 mg capsule RxNorm: 054369 1 Capsule(s) Oral three times a day 2019 Inactive multivitamin with iron-mineral tablet RxNorm: 1 Tablet(s) Oral every day 2021 Inactive cetirizine 10 mg tablet RxNorm: 9381918 1 Tablet(s) PO daily 2019 Inactive This refill negates all other refills of this medication. Please do not auto refill Singulair 10 mg tablet RxNorm: 789326 1 Tablet(s) PO daily 2019 Inactive This refill negates all other refills of this medication gabapentin 300 mg capsule RxNorm: 623591 1 Capsule(s) PO TID 2019 Inactive lisinopril 2.5 mg tablet RxNorm: 632069 1 Tablet(s) PO daily 020 2019 Inactive levothyroxine 50 mcg tablet RxNorm: 300394 1 Tablet(s) PO daily 2019 Inactive This refill negates all other refills of this medication hydrochlorothiazide 25 mg tablet RxNorm: 433708 1 Tablet(s) Oral every day 020 2019 Inactive fenugreek seed extract 500 mg capsule RxNorm: 1 Capsule(s) Oral three times a day 2021 Inactive Alcohol Prep Pads RxNorm: 882787 1 Patch TOP QAM 2020 Inactive loperamide 2 mg tablet RxNorm: 591605 1 Tablet(s) Oral as needed take one [...] 2019 Inactive hydrochlorothiazide 25 mg tablet RxNorm: 788005 1 Tablet(s) Oral every day 2019 Inactive Sudafed 12 Hour 120 mg tablet,extended release RxNorm: 3152539 1 Tablet(s) Oral every 12 hours as needed 2018 Inactive omeprazole 20 mg capsule,delayed release RxNorm: 116757 1 Capsule(s) Oral every day 019 2019 Inactive Sudafed 12 Hour 120 mg tablet,extended release RxNorm: 7148564 1 Tablet(s) Oral every 12 hours as needed 019 2018 Inactive pantoprazole 40 mg tablet,delayed release RxNorm: 358067 1 Tablet(s) Oral every day 2018 Inactive discontinue any other H2Blkr. and PPI albuterol sulfate 2.5 mg/3 mL (0.083 %) solution for nebulization RxNorm: 292307 1 Vial Inhalation every four hours as needed as needed for dyspnea 019 2019 Inactive 60/box. This refill negates all other refills of this medication. Please do not fill early. Please do not auto refill. Symbicort 160 mcg-4.5 mcg/actuation HFA aerosol inhaler RxNorm: 0308575 2 Puff(s) INH BID No Stop Date Active Alcohol Prep Pads RxNorm: 298055 1 Patch TOP QAM 019 2019 Inactive Ventolin HFA 90 mcg/actuation aerosol inhaler RxNorm: 266859 2 Puff(s) INH QID 019 2019 Inactive Please do not fill early. Please do not auto refill. This refill negates all other refills of this medication True Metrix Glucose Test Strip RxNorm: 1 Test Strips Miscellaneous QAM 019 2019 Inactive 100/container atorvastatin 40 mg tablet RxNorm: 749618 1 Tablet(s) Oral every day 019 2019 Inactive buspirone 7.5 mg tablet RxNorm: 938427 1 Tablet(s) PO BID 019 2020 Inactive This refill negates all other refills of this medication hydrochlorothiazide 12.5 mg tablet RxNorm: 229190 1 Tablet(s) PO QAM 019 2019 Inactive levmetamfetamine 50 mg nasal inhaler RxNorm: 1 Unit(s) NASAL Q3-4H Do not use more than every 3 hours or 8 times/24hours 019 2021 Inactive Please do not auto refill. This refill negates all other refills of this medication Ventolin HFA 90 mcg/actuation aerosol inhaler RxNorm: 421819 2 Puff(s) INH QID 019 2018 Inactive Please do not fill early. Please do not auto refill. This refill negates all other refills of this medication Singulair 10 mg tablet RxNorm: 105414 1 Tablet(s) PO daily 019 2019 Inactive This refill negates all other refills of this medication cetirizine 10 mg tablet RxNorm: 9218908 1 Tablet(s) PO daily 019 2019 Inactive This refill negates all other refills of this medication. Please do not auto refill levothyroxine 50 mcg tablet RxNorm: 199943 1 Tablet(s) PO daily 019 2019 Inactive This refill negates all other refills of this medication diclofenac sodium 75 mg tablet,delayed release RxNorm: 620194 1 Tablet(s) PO BID 019 2019 Inactive This refill negates all other refills of this medication ranitidine 150 mg tablet RxNorm: 014924 1 Tablet(s) PO BID 019 2018 Inactive This refill negates all other refills of this medication Calcium 600-D3 Plus (mag-zinc) 600 mg calcium-800 unit-50 mg tablet RxNorm: 1 Tablet(s) PO daily take an additonal tablet for itching. 019 2018 Inactive This refill negates all other refills of this medication albuterol sulfate 2.5 mg/3 mL (0.083 %) solution for nebulization RxNorm: 128790 1 Vial INH QID 2018 Inactive 60/box. This refill negates all other refills of this medication. Please do not fill early. Please do not auto refill. lisinopril 2.5 mg tablet RxNorm: 997477 1 Tablet(s) PO daily 019 2019 Inactive gabapentin 300 mg capsule RxNorm: 899440 1 Capsule(s) PO TID 019 2019 Inactive atorvastatin 20 mg tablet RxNorm: 068795 1 Tablet(s) PO QHS 019 2018 Inactive This refill negates all other refills of this medication TRUEplus Lancets 30 gauge RxNorm: 1 Lancets Miscellaneous QAM 019 2018 Inactive 100/box gabapentin 300 mg capsule RxNorm: 043103 1 Capsule(s) PO TID 019 2018 Inactive Flintstones Complete (iron) 18 mg iron chewable tablet RxNorm: 1 Tablet(s) PO daily 019 2021 Inactive This refill negates all other refills of this medication gabapentin 300 mg capsule RxNorm: 351149 1 Capsule(s) PO TID as needed 2018 Inactive True Metrix Glucose Test Strip RxNorm: 1 Test Strips Miscellaneous QAM 2018 Inactive 100/container Alcohol Prep Pads RxNorm: 341506 1 Patch TOP QAM 2018 Inactive TRUEplus Lancets 30 gauge RxNorm: 1 Lancets Miscellaneous QAM 2018 Inactive 100/box lisinopril 2.5 mg tablet RxNorm: 777112 1 Tablet(s) PO daily 2018 Inactive ranitidine 150 mg tablet RxNorm: 741836 1 Tablet(s) PO BID 2018 Inactive This refill negates all other refills of this medication albuterol sulfate 2.5 mg/3 mL (0.083 %) solution for nebulization RxNorm: 112796 1 Vial INH QID 2018 Inactive 60/box. [...] this medication gabapentin 300 mg capsule RxNorm: 555015 1 Capsule(s) PO TID as needed 019 2018 Inactive atorvastatin 20 mg tablet RxNorm: 196522 1 Tablet(s) PO QHS 019 2018 Inactive This refill negates all other refills of this medication trazodone 50 mg tablet RxNorm: 235920 1 Tablet(s) PO QHS 019 2018 Inactive This refill negates all other refills of this medication Ventolin HFA 90 mcg/actuation aerosol inhaler RxNorm: 817150 2 Puff(s) INH QID 019 2018 Inactive Please do not fill early. Please do not auto refill. This refill negates all other refills of this medication Calcium 600-D3 Plus 600 mg calcium-800 unit-50 mg tablet RxNorm: 1 Tablet(s) PO daily take an additonal tablet for itching. 019 2018 Inactive This refill negates all other refills of this medication Singulair 10 mg tablet RxNorm: 034410 1 Tablet(s) PO daily 019 2018 Inactive This refill negates all other refills of this medication buspirone 7.5 mg tablet RxNorm: 551869 1 Tablet(s) PO BID 019 2018 Inactive This refill negates all other refills of this medication diclofenac sodium 75 mg tablet,delayed release RxNorm: 848346 1 Tablet(s) PO BID 019 2018 Inactive This refill negates all other refills of this medication hydrochlorothiazide 12.5 mg tablet RxNorm: 802458 1 Tablet(s) PO QAM 019 2018 Inactive metoprolol succinate ER 50 mg tablet,extended release 24 hr RxNorm: 501024 1 Tablet(s) PO daily 019 2018 Inactive This refill negates all other refills of this medication levothyroxine 50 mcg tablet RxNorm: 132962 1 Tablet(s) PO daily 019 2018 Inactive This refill negates all other refills of this medication cetirizine 10 mg tablet RxNorm: 9026803 1 Tablet(s) PO daily 019 2018 Inactive This refill negates all other refills of this medication. Please do not auto refill Flintstones Complete (iron) 18 mg iron chewable tablet RxNorm: 1 Tablet(s) PO daily 019 2018 Inactive This refill negates all other refills of this medication buspirone 7.5 mg tablet RxNorm: 650976 1 Tablet(s) PO BID 2018 Inactive cetirizine 10 mg tablet RxNorm: 7142325 1 Tablet(s) PO daily 018 2018 Inactive Guaiasorb DM 10 mg-100 mg/5 mL oral liquid RxNorm: 847669 10 Milliliter(s) PO As needed every 4 hr 2018 Inactive Vicks Vaporub 4.7 %-1.2 %-2.6 % topical ointment RxNorm: 7026642 1 Application TOP TID 2018 Inactive levmetamfetamine 50 mg nasal inhaler RxNorm: 1 Unit(s) NASAL Q3-4H 2017 Inactive sertraline 50 mg tablet RxNorm: 424401 1 Tablet(s) PO daily 2018 Inactive Please note dose trazodone 50 mg tablet RxNorm: 488121 1 Tablet(s) PO QHS 018 2018 Inactive sertraline 50 mg tablet RxNorm: 564113 1 Tablet(s) PO daily 018 2017 Inactive amoxicillin 500 mg tablet RxNorm: 883582 1 Tablet(s) PO Q12H 2017 Inactive albuterol sulfate 2.5 mg/3 mL (0.083 %) solution for nebulization RxNorm: 261033 1 Vial INH QID 2018 Inactive 60/box. Please do not fill early. Please do not auto refill. Prozac 10 mg capsule RxNorm: 580797 1 Capsule(s) PO daily 018 2017 Inactive buspirone 7.5 mg tablet RxNorm: 380774 1 Tablet(s) PO BID 018 2018 Inactive gabapentin 300 mg capsule RxNorm: 564335 1 Capsule(s) PO TID as needed 018 2018 Inactive hydrochlorothiazide 12.5 mg tablet RxNorm: 479126 1 Tablet(s) PO QAM 018 2018 Inactive ranitidine 150 mg tablet RxNorm: 514605 1 Tablet(s) PO BID 018 2018 Inactive Macrobid 100 mg capsule RxNorm: 118771 1 Capsule(s) PO Q12H 018 2017 Inactive Singulair 10 mg tablet RxNorm: 529845 1 Tablet(s) PO daily 018 2018 Inactive Ventolin HFA 90 mcg/actuation aerosol inhaler RxNorm: 3715556 2 Puff(s) INH QID 018 2018 Inactive Singulair 10 mg tablet RxNorm: 299666 1 Tablet(s) PO daily 018 2017 Inactive buspirone 7.5 mg tablet RxNorm: 715957 1 Tablet(s) PO BID 018 2017 Inactive Prozac 10 mg capsule RxNorm: 632599 1 Capsule(s) PO daily 018 2017 Inactive diclofenac sodium 75 mg tablet,delayed release RxNorm: 101979 1 Tablet(s) PO BID 018 2017 Inactive lisinopril 2.5 mg tablet RxNorm: 372595 1 Tablet(s) PO daily 018 2017 Inactive Neilmed Pediatric Sinus Rinse Refill packet RxNorm: 1 Unit Dose NASAL PRN 018 2021 Inactive metoprolol succinate ER 50 mg tablet,extended release 24 hr RxNorm: 551492 1 Tablet(s) PO daily 018 2017 Inactive levothyroxine 50 mcg tablet RxNorm: 387531 1 Tablet(s) PO daily 018 2017 Inactive TRUEplus Lancets 30 gauge RxNorm: 1 Lancets Miscellaneous QAM 018 2017 Inactive 100/box Ventolin HFA 90 mcg/actuation aerosol inhaler RxNorm: 579392 2 Puff(s) INH QID 018 2017 Inactive Aleve 220 mg capsule RxNorm: 4601557 1 Capsule(s) PO BID 018 2018 Inactive ranitidine 150 mg tablet RxNorm: 175433 1 Tablet(s) PO BID 018 2017 Inactive gabapentin 300 mg capsule RxNorm: 494625 1 Capsule(s) PO TID as needed 2017 Inactive atorvastatin 20 mg tablet RxNorm: 808515 1 Tablet(s) PO QHS 018 2017 Inactive True Metrix Glucose Test Strip RxNorm: 1 Test Strips Miscellaneous QAM 2017 Inactive 50/container Calcium 600-D3 Plus 600 mg calcium-800 unit-50 mg tablet RxNorm: 1 Tablet(s) PO daily take an additonal tablet for itching. 018 2017 Inactive hydrochlorothiazide 12.5 mg tablet RxNorm: 723734 1 Tablet(s) PO QAM 018 2017 Inactive Flintstones Complete (iron) 18 mg iron chewable tablet RxNorm: 1 Tablet(s) PO daily 018 2017 Inactive True Metrix Glucose Meter RxNorm: miscellaneous 019 2018 Inactive sertraline 50 mg tablet RxNorm: 152028 1 Tablet(s) PO daily 020 2019 Inactive loperamide 2 mg tablet RxNorm: 588148 oral 019 2018 Inactive d-mannose oral powder RxNorm: PO 018 2021 Inactive Symbicort 160 mcg-4.5 mcg/actuation HFA aerosol inhaler RxNorm: 2700107 2 Puff(s) INH BID 019 2018 Inactive Medication Administered No Medication Administered data Procedures Procedure Codes Date Pain Screening CPT-4: PAS 2022 Tobacco Assessment/Screening CPT-4: TCA Hypertension CPT-4: HTN 08/17/2022 [place] F[place] Assessment CPT-4: DSWA 04/02 Patient Health [...] CPT-4: VACP Fall Risk Assessment SNOMED CT: 77676273 4 CPT-4: DFRA01/13/2021em[place] Fany AssessmentCPT-4: DSWA12/17/2020Urinalysis, dip stickCPT-4: 387163509/24/2020Patient Health QuestionnaireCPT-4: DPHQ 08/19/2020ElectrocardiogramCPT-4: 7021280Tobacco Assessment/Screening CPT-4: TCA01/01/2020Fall Risk AssessmentSNOMED CT: 224276220 CPT-4: DFRA01/01/2020Functional AssessmentCPT-4: DFA01/01/2020[place] Fany AssessmentCPT-4: DSWA11/28/2019Patient Health QuestionnaireCPT-4: DPHQ11/28/2019 [place] Fany AssessmentCPT-4: DSWA10/17/2019HypertensionCPT-4: HTN10/17/[address]: 020727080 CPT-4: DFRA09/19/2019Functional AssessmentCPT-4: DFA111/20/2018Urinalysis, dip stickCPT-4: 6810887Tobacco Assessment/ScreeningCPT-4: TCA05/24/2019 Patient Health QuestionnaireCPT-4: DPHQ05/24/2019AHA/REBECCA Classification AssessmentCPT-4: DAHA04/25/2019Controlled Substance ReportCPT-4: CTRSU04/25/2019 Urinalysis, dip stickCPT-4: 078905203/28/2019Urinalysis, dip stickCPT-4: 85528 03/28/20190658C1D-AuoeusjpvagcvopEVR-1: 48716EelebwtZ8Z-LkotwbvchhxvcwaAQO-3: 37206 AhmydirD9Y-ZiforraeklrmetyDMS-5: 00371JubazwwA4B-QnxahpvcfdbjgitWNQ-5: 72929 SogcutwO5W-RvouuahkmkhwiglWCR-1: 33219EltbcmcW1T-QbugbhnoptpevshHFP-5: 65725 EyixxopU7D-TghmbjobviggbepAXS-1: 69236XwzjatmX6D-HwwwkcuwmuahpkcIHK-4: 33724 IcpwlyaP0H-PvwqtujcbsmrcmfRZM-9: 21995WazwlejN6G-IvwhmoyieskbwxnYUG-7: 40990 LbkfbwlD5X-PpsqtqwdkptywifPDN-3: 74585MixbcdiOqbfhlzsdy ReferralSNOMED CT: 001582708 CPT-4: E26Dbwvlve Reason For Visit No Reason For Visit data Plan of Care Planned Activity Notes Codes Status Date Referral: Pending Gynecology Referral Informatio n Referral ProcessedReferral: Pending Pulmonology Referral InformationReferralProcessed Referral: Pending Psychiatry Referral InformationReferralInitiatedReferral: Pending Respiratory Services Referral InformationReferralInitiatedReferral: Pending Ophthalmology Referral InformationReferralInitiatedReferral: [facility] WPtel: [address] [place] USWriter placed a call out to the patient to notify her that it has been recommended that she be seenby a urologist. Patient agreed to be seen, does not have a provider of choice and no transportationissues. Campus President faxed referral and clinical notes to [facility] in [place], [place] near the patient's home. Patient to [...] seen and prefers a provider in the [place] or [place] area. Campus President placed a call out to everyone listed in the area and the only location that was able to accept the patient's insurance was [address] [address] and spoke with Maylin. Maylin asked that the patient's referral, face sheet and visit notes be faxed to . Campus President faxed over requested documents. Patient appointment confirmation letter generated and mailed to her home address. Patient to call to schedule an appointment.ProcessedReferral: [facility] WPtel: [address] [place] [address] [place], [place] [id number] USPatient notified that it has been advised that she be seen by Neurology. Patient agreed to be seen and prefers to be seen by a provider in the [place], [place] area. Patient denies any concerns with transportation, and prefers to schedule her own appointment. Campus President placed a [facility] out to [facility] [...]
--- OUTSIDE RECORDS SUMMARY | 2023-12-07 02:22 | XMS_ITS | CCD ---
Author Name Leena Culver NP Address [address] [place] [address] [place] [id number] Phone Organization [facility] Phone Care Team Providers Care Cask Maker Name Role Phone Anna Culver NP Primary Care Provider Unav ailable Unavailable Chronic Care Management Unavaila ble Summary Purpose DataExchange Insurance Providers Payer name Policy type / Coverage type Covered democrat ID Effective Begin Date Effective End Date SUKI BUTTS MARIA ESTHER [id number] Unknown Unknown Family history Mother Diagnosis Age [...] 05/31/2018 Education level Unknown Some High School 10th05/31/20184805DyqnlpvbkuWrjjnvcAtimtndjcr56/29/2018Tobacco historySNOMED CT: 464799989Hnt never smoked or chewed zjykwoy5605/31/2018Alcohol historySNOMED CT: 728212504Ecxyx drinks koftkdx0205/31/2018Has the patient ever used illegal drugs? UnknownHas never used illegal drugs05/31/2018DNR Order/ Advanced Directive UnknownFull Code05/31/2018 Allergies, Adverse Reactions, Alerts Substance Reaction Codes Entered Date Inactivated Date Status OxyContin itch, RxNorm: 071372 01/13/2021 No Inactive Da te Active *No known food allergies Ikjvldt2909/06/2018No Inactive DateActiveMethylprednisolonehivesRxNorm: 6902 09/06/2018No Inactive DateActive Problems Condition Codes Effective Dates Condition St atus Adult BMI 50.0-59.9 kg/sq m ICD-10: Z68. 43 ICD-9: V85.4308/ActiveEncounter for screening for tobacco useICD-10: Z01.89 ICD-9: V72.8501/ctiveHypertensive heart diseaseICD-10: I11.9 ICD-9: 402.9003/ctiveMajor depression, recurrentICD-10: F33.9 ICD-9: 296.3009/ctiveOpen wound of right middle fingerICD-10: S61.A ICD-9: 883.001/ctiveType 2 diabetes mellitus with peripheral neuropathy ICD-10: E11.42 ICD-9: 250.6002ActiveEncounter for immunizationICD-10: Z23 ICD-9: V04.8111/ctiveFungal infection of skinICD-10: B36.9 ICD-9: 111.911/ctiveHypertensionICD-10: I10 ICD-9: 401.903/ctiveInfluenza vaccine refusedICD-10: Z28.21 ICD-9: V64.0609/ctiveAsthmaICD-10: J45.909 ICD-9: 493.9008/08/2018ActiveGERD (gastroesophageal reflux disease)ICD-10: K21.9 ICD-9: 530.8112ActiveObstructive sleep apnea (adult) (pediatric)ICD-10: G47.33 ICD-9: 327.2309ActivePost-traumatic stress disorder, unspecifiedICD-10: F43.10 ICD-9: 309.8112ActiveAdjustment disorder with mixed anxiety and depressed moodICD-10: F43.23 ICD-9: 309.2812ActiveAnkle sprainICD-10: S93.409A ICD-9: 845.0010/2ActiveHypothyroidICD-10: E03.9 ICD-9: 244.912ActiveAbscessICD-10: L02.91 ICD-9: 682.907/2ActiveHyperlipidemia, mixedICD-10: E78.2 ICD-9: 272.203/2Active(Z00.00-V70.9) Encounter for general [...] ICD-9: 780.ActiveHistory of bladder surgeryICD-10: Z98.890 ICD-9: V45.8904/ctiveUrinary retention [...] Instructions omeprazole 20 mg capsule,delayed release RxNorm: 437069 Take 1 Capsule(s) Oral every evening 2022 Inactive Alcohol Prep Pads RxNorm: 114772 USE EACH MORNING 2021 Inactive E11.42 clotrimazole 1 % topical cream RxNorm: 935222 Apply 1 Application Topical two times a day as needed apply to affected area(s) twice daily until healed 2021 Inactive Victoza 2-Sebastián 0.6 mg/0.1 mL (18 mg/3 mL) subcutaneous pen injector RxNorm: 959198 Inject 0.6-1.8 Milligram(s) Subcutaneous once a week Inject 0.6mg/0.1ml week one, 1.2mg/0.2ml week two, 1.8/0.3ml weekly thereafter 022 2021 Inactive ibuprofen 800 mg tablet RxNorm: 246719 Take 1 Tablet(s) Oral Q8H as needed for pain take with food No Stop Date Active Ozempic 1 mg/dose (4 mg/3 mL) subcutaneous pen injector RxNorm: 8447774 Take 1 Unit Dose Subcutaneous QWeek Tuesday 022 2021 Inactive lisinopril 2.5 mg tablet RxNorm: 419045 Take 1 Tablet(s) Oral every day 022 2021 Inactive lisinopril 2.5 mg tablet RxNorm: 142119 Take 1 Tablet(s) Oral every day 022 2022 Inactive hydrochlorothiazide 25 mg tablet RxNorm: 383623 Take 1 Tablet(s) Oral every day 022 2021 Inactive Ozempic 1 mg/dose (4 mg/3 mL) subcutaneous pen injector RxNorm: 9065479 Take 1 Unit Dose Subcutaneous QWeek 022 2021 Inactive famotidine 20 mg tablet RxNorm: 036711 Take 1 Tablet(s) Oral every morning 022 2021 Inactive levothyroxine 50 mcg tablet RxNorm: 147166 Take 1 Tablet(s) Oral every day 022 2021 Inactive atorvastatin 20 mg tablet RxNorm: 508745 Take 1 Tablet(s) Oral every night at bedtime 2021 Inactive Cleocin T 1 % lotion RxNorm: 431400 Take 2 Gram(s) Topical every day 022 2021 Inactive Cleocin T 1 % lotion RxNorm: 910523 Take 2 Gram(s) Topical every day 022 2021 Inactive Ozempic 1 mg/dose (4 mg/3 mL) subcutaneous pen injector RxNorm: 5391917 Take 1 Unit Dose Subcutaneous QWeek 022 2021 Inactive Ozempic 0.25 mg or 0.5 mg (2 mg/1.5 mL) subcutaneous pen injector RxNorm: 1908991 INJECT 0.5 MGS SUBCUTANEOUSLY EVERY WEEK 2021 Inactive omeprazole 20 mg capsule,delayed release RxNorm: 245351 Take 1 Capsule(s) Oral every evening 2021 Inactive levothyroxine 50 mcg tablet RxNorm: 061929 Take 1 Tablet(s) Oral every day 022 2021 Inactive atorvastatin 20 mg tablet RxNorm: 400147 Take 1 Tablet(s) Oral every night at bedtime 2021 Inactive This refill negates all other refills of this medication lisinopril 2.5 mg tablet RxNorm: 123157 Take 1 Tablet(s) Oral every day 022 2021 Inactive gabapentin 300 mg capsule RxNorm: 900184 Take 1 Capsule(s) Oral three times a day 022 2021 Inactive montelukast 10 mg tablet RxNorm: 422760 Take 1 Tablet(s) Oral every day 022 2021 Inactive cholecalciferol (vitamin D3) 50 mcg (2,000 unit) tablet RxNorm: 570327 Take 1 Tablet(s) Oral every day 2022 Inactive Myrbetriq 50 mg tablet,extended release RxNorm: 9669865 1 Tablet(s) Oral every day No Stop Date Active Ozempic 0.25 mg or 0.5 mg (2 mg/1.5 mL) subcutaneous pen injector RxNorm: 1708319 inject 0.5 milligrams subcutaneously every week 2021 Inactive Ozempic 0.25 mg or 0.5 mg (2 mg/1.5 mL) subcutaneous pen injector RxNorm: 3351829 Take 0.5 Capsule(s) Injection once a week 2021 Inactive omeprazole 20 mg capsule,delayed release RxNorm: 327871 Take 1 Capsule(s) Oral every evening 2020 Inactive Ozempic 0.25 mg or 0.5 mg (2 mg/1.5 mL) subcutaneous pen injector RxNorm: 5497752 Take 0.25 Milligram(s) Subcutaneous once a week 2021 Inactive Easy Touch Alcohol Prep Pads RxNorm: 327721 USE DIRECTED EACH MORNING 2021 Inactive Probiotic 10 billion cell capsule RxNorm: 7238731 Take 1 Capsule(s) Oral every day 2021 Inactive levothyroxine 50 mcg tablet RxNorm: 602423 Take 1 Tablet(s) Oral every day 2020 Inactive Acid Platform Engineer (famotidine) 20 mg tablet RxNorm: 945826 Take 1 Tablet(s) Oral every morning 2020 Inactive Heartburn Relief (famotidine) 10 mg tablet RxNorm: 437305 Take 1 Tablet(s) Oral QAM 2020 Inactive levothyroxine 50 mcg tablet RxNorm: 770717 Take 1 Tablet(s) Oral QD 2020 Inactive Singulair 10 mg tablet RxNorm: 049843 TAKE (1) TABLET BY MOUTH DAILY 021 2020 Inactive metformin 1,000 mg tablet RxNorm: 461583 1 Tablet(s) Oral two times a day 021 2021 Inactive lisinopril 2.5 mg tablet RxNorm: 283165 Take 1 Tablet(s) Oral every day 021 2020 Inactive hydrochlorothiazide 25 mg tablet RxNorm: 133671 Take 1 Tablet(s) Oral every day 021 2020 Inactive ondansetron 4 mg disintegrating tablet RxNorm: 526430 1 Tablet(s) Oral two times a day 021 2020 Inactive Sudafed 12 Hour 120 mg tablet,extended release RxNorm: 4364911 TAKE 1 TABLET BY MOUTH EVERY 12 HOURS NEEDED 021 2021 Inactive Heartburn Relief (famotidine) 10 mg tablet RxNorm: 899768 Take 1 Tablet(s) Oral every morning 021 2020 Inactive omeprazole 20 mg capsule,delayed release RxNorm: 404491 1 Capsule(s) Oral every evening 021 2020 Inactive sertraline 100 mg tablet RxNorm: 133971 2 Tablet(s) Oral every day 021 2020 Inactive levothyroxine 50 mcg tablet RxNorm: 803602 TAKE (1) TABLET BY MOUTH DAILY 021 2020 Inactive metformin 500 mg tablet RxNorm: 988350 1 Tablet(s) Oral two times a day take with 500mg to equal 1000mg 021 2020 Inactive gabapentin 300 mg capsule RxNorm: 953177 TAKE 1 CAPSULE BY MOUTH THREE TIMES A DAY 021 2020 Inactive lisinopril 2.5 mg tablet RxNorm: 834576 TAKE 1 TABLET BY MOUTH DAILY 021 2020 Inactive gabapentin 300 mg capsule RxNorm: 159759 TAKE 1 CAPSULE BY MOUTH THREE TIMES A DAY 021 2020 Inactive Singulair 10 mg tablet RxNorm: 016506 TAKE (1) TABLET BY MOUTH DAILY 021 2020 Inactive metformin 1,000 mg tablet RxNorm: 425832 1 Tablet(s) Oral two times a day 021 2020 Inactive atorvastatin 40 mg tablet RxNorm: 141515 1 Tablet(s) Oral every day 021 2020 Inactive omeprazole 20 mg capsule,delayed release RxNorm: 586417 1 Capsule(s) Oral every evening 2020 Inactive famotidine 10 mg tablet RxNorm: 691290 1 Tablet(s) Oral every morning 021 2020 Inactive Alcohol Prep Pads RxNorm: 245869 USE EACH MORNING 021 2020 Inactive omeprazole 20 mg capsule,delayed release RxNorm: 699368 1 Capsule(s) Oral two times a day 2021 Inactive omeprazole 20 mg capsule,delayed release RxNorm: 525243 TAKE 1 CAPSULE BY MOUTH EVERY DAY 2021 Inactive Macrobid 100 mg capsule RxNorm: 788153 1 Capsule(s) Oral every 12 hours with food 2020 Inactive omeprazole 20 mg capsule,delayed release RxNorm: 057575 1 Capsule(s) Oral two times a day 2021 Inactive metformin 1,000 mg tablet RxNorm: 074404 1 Tablet(s) Oral two times a day 2020 Inactive start on September 11, 2020 metformin 500 mg tablet RxNorm: 864589 1 Tablet(s) Oral two times a day take with 500mg to equal 1000mg 2019 Inactive gabapentin 300 mg capsule RxNorm: 839127 TAKE 1 CAPSULE BY MOUTH THREE TIMES DAILY 2020 Inactive cetirizine 10 mg tablet RxNorm: 1396836 TAKE (1) TABLET BY MOUTH DAILY 2020 Inactive metformin 500 mg tablet RxNorm: 799783 1 Tablet(s) Oral two times a day 020 2019 Inactive loperamide 2 mg tablet RxNorm: 448152 1 Tablet(s) Oral as needed take one tablet after each loose stool, maximum of 8 tablets in 24 hours 020 2021 Inactive Sudafed 12 Hour 120 mg tablet,extended release RxNorm: 2989616 TAKE 1 TABLET BY MOUTH EVERY 12 HOURS NEEDED 2019 Inactive hydrochlorothiazide 25 mg tablet RxNorm: 060800 TAKE (1) TABLET BY MOUTH EVERY DAY 020 2019 Inactive omeprazole 20 mg capsule,delayed release RxNorm: 568969 TAKE 1 CAPSULE BY MOUTH EVERY DAY 020 2020 Inactive metformin 500 mg tablet RxNorm: 502373 1 Tablet(s) Oral every day 020 2019 Inactive True Metrix Glucose Test Strip RxNorm: 1 Test Strips Miscellaneous two times a day as needed No Stop Date Active metformin 500 mg tablet RxNorm: 821392 1 Tablet(s) Oral every day 020 2019 Inactive diclofenac sodium 75 mg tablet,delayed release RxNorm: 654792 1 Tablet(s) PO BID 2021 Inactive This refill negates all other refills of this medication Sudafed 12 Hour 120 mg tablet,extended release RxNorm: 0186783 TAKE 1 TABLET BY MOUTH EVERY 12 HOURS NEEDED 020 2019 Inactive True Metrix Glucose Test Strip RxNorm: 1 Test Strips Miscellaneous every morning 020 2019 Inactive 100/container True Metrix Glucose Test Strip RxNorm: 1 Test Strips Miscellaneous QA 020 2019 Inactive 100/container loperamide 2 mg tablet RxNorm: 551685 1 Tablet(s) Oral as needed take one tablet after each loose stool, maximum of 8 tablets in 24 hours 020 2019 Inactive cetirizine 10 mg tablet RxNorm: 0062489 1 Tablet(s) PO daily 04/16/2019 Inactive loperamide 2 mg tablet RxNorm: 145191 1 Tablet(s) Oral as needed take one tablet after each loose stool, maximum of 8 tablets in 24 hours 2019 Inactive quetiapine 100 mg tablet RxNorm: 217177 1 Tablet(s) Oral every night at bedtime 2019 Inactive levothyroxine 50 mcg tablet RxNorm: 546920 1 Tablet(s) PO daily 2020 Inactive gabapentin 300 mg capsule RxNorm: 719321 1 Capsule(s) PO TID 2019 Inactive levothyroxine 50 mcg tablet RxNorm: 464619 1 Tablet(s) PO daily 2019 Inactive lisinopril 2.5 mg tablet RxNorm: 076784 1 Tablet(s) PO daily 2020 Inactive gabapentin 300 mg capsule RxNorm: 810977 1 Capsule(s) PO TID 2019 Inactive cetirizine 10 mg tablet RxNorm: 3371914 1 Tablet(s) PO daily 2019 Inactive Singulair 10 mg tablet RxNorm: 178808 1 Tablet(s) PO daily 2020 Inactive gentamicin 0.3 % eye drops RxNorm: 698460 1 Drop(s) ophthalmic (eye) four times a day 2019 Inactive gentamicin 0.3 % eye drops RxNorm: 711533 1 Drop(s) ophthalmic (eye) four times a day 2019 Inactive gentamicin 0.3 % eye drops RxNorm: 706809 1 Drop(s) ophthalmic (eye) four times a day 2019 Inactive hydrochlorothiazide 25 mg tablet RxNorm: 756796 1 Tablet(s) Oral every day 2019 Inactive Sudafed 12 Hour 120 mg tablet,extended release RxNorm: 5942078 TAKE (1) TABLET BY MOUTH EVERY 12 HOURS NEEDED 2019 Inactive loperamide 2 mg tablet RxNorm: 968391 1 Tablet(s) Oral as needed take one tablet after each loose stool, maximum of 8 tablets in 24 hours 020 2019 Inactive loperamide 2 mg tablet RxNorm: 872788 1 Tablet(s) Oral as needed take one tablet after each loose stool, maximum of 8 tablets in 24 hours 020 2019 Inactive atorvastatin 40 mg tablet RxNorm: 358441 1 Tablet(s) Oral every day 2020 Inactive quetiapine 100 mg tablet RxNorm: 518949 1 Tablet(s) Oral every night at bedtime 2019 Inactive sertraline 100 mg tablet RxNorm: 187196 1 Tablet(s) Oral 2019 Inactive omeprazole 20 mg capsule,delayed release RxNorm: 951357 1 Capsule(s) Oral every day 2019 Inactive amoxicillin 250 mg capsule RxNorm: 775961 1 Capsule(s) Oral three times a day 2019 Inactive multivitamin with iron-mineral tablet RxNorm: 1 Tablet(s) Oral every day 2021 Inactive cetirizine 10 mg tablet RxNorm: 4268642 1 Tablet(s) PO daily 2019 Inactive This refill negates all other refills of this medication. Please do not auto refill Singulair 10 mg tablet RxNorm: 104504 1 Tablet(s) PO daily 2019 Inactive This refill negates all other refills of this medication gabapentin 300 mg capsule RxNorm: 013741 1 Capsule(s) PO TID 2019 Inactive lisinopril 2.5 mg tablet RxNorm: 539129 1 Tablet(s) PO daily 2019 Inactive levothyroxine 50 mcg tablet RxNorm: 195324 1 Tablet(s) PO daily 2019 Inactive This refill negates all other refills of this medication hydrochlorothiazide 25 mg tablet RxNorm: 396991 1 Tablet(s) Oral every day 2019 Inactive fenugreek seed extract 500 mg capsule RxNorm: 1 Capsule(s) Oral three times a day 020 2021 Inactive Alcohol Prep Pads RxNorm: 910596 1 Patch TOP QAM 2020 Inactive loperamide 2 mg tablet RxNorm: 344199 1 Tablet(s) Oral as needed take one [...] 2019 Inactive hydrochlorothiazide 25 mg tablet RxNorm: 554594 1 Tablet(s) Oral every day 019 2019 Inactive Sudafed 12 Hour 120 mg tablet,extended release RxNorm: 1635629 1 Tablet(s) Oral every 12 hours as needed 2018 Inactive omeprazole 20 mg capsule,delayed release RxNorm: 880837 1 Capsule(s) Oral every day 019 2019 Inactive Sudafed 12 Hour 120 mg tablet,extended release RxNorm: 3259752 1 Tablet(s) Oral every 12 hours as needed 019 2018 Inactive pantoprazole 40 mg tablet,delayed release RxNorm: 378974 1 Tablet(s) Oral every day 019 2018 Inactive discontinue any other H2Blkr. and PPI albuterol sulfate 2.5 mg/3 mL (0.083 %) solution for nebulization RxNorm: 404898 1 Vial Inhalation every four hours as needed as needed for dyspnea 2019 Inactive 60/box. This refill negates all other refills of this medication. Please do not fill early. Please do not auto refill. Symbicort 160 mcg-4.5 mcg/actuation HFA aerosol inhaler RxNorm: 3813776 2 Puff(s) INH BID No Stop Date Active Alcohol Prep Pads RxNorm: 115233 1 Patch TOP QAM 019 2019 Inactive Ventolin HFA 90 mcg/actuation aerosol inhaler RxNorm: 378895 2 Puff(s) INH QID 019 2019 Inactive Please do not fill early. Please do not auto refill. This refill negates all other refills of this medication True Metrix Glucose Test Strip RxNorm: 1 Test Strips Miscellaneous QA 019 2019 Inactive 100/container atorvastatin 40 mg tablet RxNorm: 263616 1 Tablet(s) Oral every day 019 2019 Inactive buspirone 7.5 mg tablet RxNorm: 515692 1 Tablet(s) PO BID 019 2020 Inactive This refill negates all other refills of this medication hydrochlorothiazide 12.5 mg tablet RxNorm: 100838 1 Tablet(s) PO QAM 019 2019 Inactive levmetamfetamine 50 mg nasal inhaler RxNorm: 1 Unit(s) NASAL Q3-4H Do not use more than every 3 hours or 8 times/24hours 019 2021 Inactive Please do not auto refill. This refill negates all other refills of this medication Ventolin HFA 90 mcg/actuation aerosol inhaler RxNorm: 632315 2 Puff(s) INH QID 019 2018 Inactive Please do not fill early. Please do not auto refill. This refill negates all other refills of this medication Singulair 10 mg tablet RxNorm: 636567 1 Tablet(s) PO daily 019 2019 Inactive This refill negates all other refills of this medication cetirizine 10 mg tablet RxNorm: 4801232 1 Tablet(s) PO daily 019 2019 Inactive This refill negates all other refills of this medication. Please do not auto refill levothyroxine 50 mcg tablet RxNorm: 304427 1 Tablet(s) PO daily 019 2019 Inactive This refill negates all other refills of this medication diclofenac sodium 75 mg tablet,delayed release RxNorm: 197778 1 Tablet(s) PO BID 019 2019 Inactive This refill negates all other refills of this medication ranitidine 150 mg tablet RxNorm: 996597 1 Tablet(s) PO BID 019 2018 Inactive This refill negates all other refills of this medication Calcium 600-D3 Plus (mag-zinc) 600 mg calcium-800 unit-50 mg tablet RxNorm: 1 Tablet(s) PO daily take an additonal tablet for itching. 2018 Inactive This refill negates all other refills of this medication albuterol sulfate 2.5 mg/3 mL (0.083 %) solution for nebulization RxNorm: 390297 1 Vial INH QID 2018 Inactive 60/box. This refill negates all other refills of this medication. Please do not fill early. Please do not auto refill. lisinopril 2.5 mg tablet RxNorm: 590723 1 Tablet(s) PO daily 019 2019 Inactive gabapentin 300 mg capsule RxNorm: 632819 1 Capsule(s) PO TID 019 2019 Inactive atorvastatin 20 mg tablet RxNorm: 698949 1 Tablet(s) PO QHS 019 2018 Inactive This refill negates all other refills of this medication TRUEplus Lancets 30 gauge RxNorm: 1 Lancets Miscellaneous QAM 019 2018 Inactive 100/box gabapentin 300 mg capsule RxNorm: 521108 1 Capsule(s) PO TID 019 2018 Inactive Flintstones Complete (iron) 18 mg iron chewable tablet RxNorm: 1 Tablet(s) PO daily 019 2021 Inactive This refill negates all other refills of this medication gabapentin 300 mg capsule RxNorm: 698593 1 Capsule(s) PO TID as needed 2018 Inactive True Metrix Glucose Test Strip RxNorm: 1 Test Strips Miscellaneous QAM 019 2018 Inactive 100/container Alcohol Prep Pads RxNorm: 858643 1 Patch TOP QAM 2018 Inactive TRUEplus Lancets 30 gauge RxNorm: 1 Lancets Miscellaneous QAM 019 2018 Inactive 100/box lisinopril 2.5 mg tablet RxNorm: 972929 1 Tablet(s) PO daily 2018 Inactive ranitidine 150 mg tablet RxNorm: 340954 1 Tablet(s) PO BID 019 2018 Inactive This refill negates all other refills of this medication albuterol sulfate 2.5 mg/3 mL (0.083 %) solution for nebulization RxNorm: 202383 1 Vial INH QID 019 2018 Inactive [...] this medication gabapentin 300 mg capsule RxNorm: 370839 1 Capsule(s) PO TID as needed 019 2018 Inactive atorvastatin 20 mg tablet RxNorm: 767727 1 Tablet(s) PO QHS 019 2018 Inactive This refill negates all other refills of this medication trazodone 50 mg tablet RxNorm: 985808 1 Tablet(s) PO QHS 019 2018 Inactive This refill negates all other refills of this medication Ventolin HFA 90 mcg/actuation aerosol inhaler RxNorm: 601060 2 Puff(s) INH QID 019 2018 Inactive Please do not fill early. Please do not auto refill. This refill negates all other refills of this medication Calcium 600-D3 Plus 600 mg calcium-800 unit-50 mg tablet RxNorm: 1 Tablet(s) PO daily take an additonal tablet for itching. 019 2018 Inactive This refill negates all other refills of this medication Singulair 10 mg tablet RxNorm: 779578 1 Tablet(s) PO daily 019 2018 Inactive This refill negates all other refills of this medication buspirone 7.5 mg tablet RxNorm: 715632 1 Tablet(s) PO BID 019 2018 Inactive This refill negates all other refills of this medication diclofenac sodium 75 mg tablet,delayed release RxNorm: 970961 1 Tablet(s) PO BID 019 2018 Inactive This refill negates all other refills of this medication hydrochlorothiazide 12.5 mg tablet RxNorm: 702209 1 Tablet(s) PO QAM 019 2018 Inactive metoprolol succinate ER 50 mg tablet,extended release 24 hr RxNorm: 373638 1 Tablet(s) PO daily 019 2018 Inactive This refill negates all other refills of this medication levothyroxine 50 mcg tablet RxNorm: 060632 1 Tablet(s) PO daily 019 2018 Inactive This refill negates all other refills of this medication cetirizine 10 mg tablet RxNorm: 2576730 1 Tablet(s) PO daily 019 2018 Inactive This refill negates all other refills of this medication. Please do not auto refill Delanointsmaury Complete (iron) 18 mg iron chewable tablet RxNorm: 1 Tablet(s) PO daily 019 2018 Inactive This refill negates all other refills of this medication buspirone 7.5 mg tablet RxNorm: 472651 1 Tablet(s) PO BID 019 2018 Inactive cetirizine 10 mg tablet RxNorm: 7309831 1 Tablet(s) PO daily 2018 Inactive Guaiasorb DM 10 mg-100 mg/5 mL oral liquid RxNorm: 950516 10 Milliliter(s) PO As needed every 4 hr 2018 Inactive Vicks Vaporub 4.7 %-1.2 %-2.6 % topical ointment RxNorm: 7998406 1 Application TOP TID 2018 Inactive levmetamfetamine 50 mg nasal inhaler RxNorm: 1 Unit(s) NASAL Q3-4H 2017 Inactive sertraline 50 mg tablet RxNorm: 263168 1 Tablet(s) PO daily 2018 Inactive Please note dose trazodone 50 mg tablet RxNorm: 858089 1 Tablet(s) PO QHS 2018 Inactive sertraline 50 mg tablet RxNorm: 285251 1 Tablet(s) PO daily 2017 Inactive amoxicillin 500 mg tablet RxNorm: 062744 1 Tablet(s) PO Q12H 2017 Inactive albuterol sulfate 2.5 mg/3 mL (0.083 %) solution for nebulization RxNorm: 455294 1 Vial INH QID 2018 Inactive 60/box. Please do not fill early. Please do not auto refill. Prozac 10 mg capsule RxNorm: 967244 1 Capsule(s) PO daily 018 2017 Inactive buspirone 7.5 mg tablet RxNorm: 919400 1 Tablet(s) PO BID 018 2018 Inactive gabapentin 300 mg capsule RxNorm: 829722 1 Capsule(s) PO TID as needed 018 2018 Inactive hydrochlorothiazide 12.5 mg tablet RxNorm: 131635 1 Tablet(s) PO QAM 018 2018 Inactive ranitidine 150 mg tablet RxNorm: 352083 1 Tablet(s) PO BID 018 2018 Inactive Macrobid 100 mg capsule RxNorm: 908858 1 Capsule(s) PO Q12H 018 2017 Inactive Singulair 10 mg tablet RxNorm: 903026 1 Tablet(s) PO daily 018 2018 Inactive Ventolin HFA 90 mcg/actuation aerosol inhaler RxNorm: 2210209 2 Puff(s) INH QID 018 2018 Inactive Singulair 10 mg tablet RxNorm: 920920 1 Tablet(s) PO daily 018 2017 Inactive buspirone 7.5 mg tablet RxNorm: 874356 1 Tablet(s) PO BID 018 2017 Inactive Prozac 10 mg capsule RxNorm: 312688 1 Capsule(s) PO daily 018 2017 Inactive diclofenac sodium 75 mg tablet,delayed release RxNorm: 806868 1 Tablet(s) PO BID 018 2017 Inactive lisinopril 2.5 mg tablet RxNorm: 738263 1 Tablet(s) PO daily 018 2017 Inactive Neilmed Pediatric Sinus Rinse Refill packet RxNorm: 1 Unit Dose NASAL PRN 018 2021 Inactive metoprolol succinate ER 50 mg tablet,extended release 24 hr RxNorm: 282451 1 Tablet(s) PO daily 018 2017 Inactive levothyroxine 50 mcg tablet RxNorm: 506938 1 Tablet(s) PO daily 018 2017 Inactive TRUEplus Lancets 30 gauge RxNorm: 1 Lancets Miscellaneous QAM 018 2017 Inactive 100/box Ventolin HFA 90 mcg/actuation aerosol inhaler RxNorm: 487789 2 Puff(s) INH QID 018 2017 Inactive Aleve 220 mg capsule RxNorm: 7423051 1 Capsule(s) PO BID 018 2018 Inactive ranitidine 150 mg tablet RxNorm: 838477 1 Tablet(s) PO BID 018 2017 Inactive gabapentin 300 mg capsule RxNorm: 729779 1 Capsule(s) PO TID as needed 018 2017 Inactive atorvastatin 20 mg tablet RxNorm: 868363 1 Tablet(s) PO QHS 018 2017 Inactive True Metrix Glucose Test Strip RxNorm: 1 Test Strips Miscellaneous QAM 018 2017 Inactive 50/container Calcium 600-D3 Plus 600 mg calcium-800 unit-50 mg tablet RxNorm: 1 Tablet(s) PO daily take an additonal tablet for itching. 018 2017 Inactive hydrochlorothiazide 12.5 mg tablet RxNorm: 049786 1 Tablet(s) PO QAM 018 2017 Inactive Flintstones Complete (iron) 18 mg iron chewable tablet RxNorm: 1 Tablet(s) PO daily 018 2017 Inactive True Metrix Glucose Meter RxNorm: miscellaneous 019 2018 Inactive sertraline 50 mg tablet RxNorm: 928132 1 Tablet(s) PO daily 020 2019 Inactive loperamide 2 mg tablet RxNorm: 140402 oral 019 2018 Inactive d-mannose oral powder RxNorm: PO 018 2021 Inactive Symbicort 160 mcg-4.5 mcg/actuation HFA aerosol inhaler RxNorm: 6286270 2 Puff(s) INH BID 019 2018 Inactive Medication Administered No Medication Administered data Results Observation Observation Code Item Item Code Result Date S ervice Location CHEM 14 (METABOLIC PANEL) 43393 Glucose 2345-7 88 mg/dL 10/21/2022 [facility] [address] [place] [address] 12897EHNT 14 (METABOLIC PANEL)85047IKX5935-044 mg/dL10/21/2022 [facility] [address] [place], [place] [address]AQMG 14 (METABOLIC PANEL)40247Egfeedjilz1945-13.9 mg/dL10/21/2022 [facility] [address] [place] [address] 54245CHPZ 14 (METABOLIC PANEL)09784GCK/Creat Yfins6450-960.6010/21/2022 [facility] [address] [place], [place] [address]BKFN 14 (METABOLIC PANEL)30927XOY Altwenmwf69205-341 mL/min/1.73m2 10/21/2022 [facility] [address] [place] [address] 73496ZKQI 14 (METABOLIC PANEL)61239Owjjvh6013-6384 mmol/L10/21/2022 [facility] [address] [place] [address] 61151AOWG 14 (METABOLIC PANEL)46563Kcjibmhql1529-61.9 mmol/L10/21/2022 [facility] [address] [place] [address] 02107RWMT 14 (METABOLIC PANEL)22094Aawgacsv2932-0826 mmol/L10/21/2022 [facility] [address] [place] [address] 42397YEKB 14 (METABOLIC PANEL)96650Czegk JV57942-967 mmol/L10/21/2022 [facility] [address] [place] [address] 82161NQON 14 (METABOLIC PANEL)42781Ijplw Rww1301-589.9 mEq/L10/21/2022 [facility] [address] [place] [address] 48362BUBC 14 (METABOLIC PANEL)49984Ybzozhjhxo Serum Vorfiuvnyy38325-7739 mOsm/kg10/21/2022 [facility] [address] [place] [address] 59930BKCF 14 (METABOLIC PANEL)20353Hsdzoip02214-58.7 g/dL10/21/2022 [facility] [address] [place], [place] [address]YIEP 14 (METABOLIC PANEL)61314Gqjmm Chnjzln6880-62.2 g/dL10/21/2022 [facility] [address] [place] [address] 12558FFQA 14 (METABOLIC PANEL)79861Paepknak9148-07.5 g/dL10/21/2022 [facility] [address] [place], [place] [address]EYDB 14 (METABOLIC PANEL)35709Mhpxmuf/Globulin Kgvee2726-56.1 10/21/2022 [facility] [address] [place], [place] [address]RCME 14 (METABOLIC PANEL)28430GAM FLML5765-688.00 U/L10/21/2022 [facility] [address] [place], [place] [address]MYTE 14 (METABOLIC PANEL)83769DYWJ/GTY3713-755 U/L10/21/2022 [facility] [address] [place], [place] [address]CCKW 14 (METABOLIC PANEL)19030THGY/AWN0334-445 U/L10/21/2022 [facility] [address] [place], [place] [address]HMZZ 14 (METABOLIC PANEL)65053Yxyyu Exebzcbuz7515-40.4 mg/dL 10/21/2022 [facility] [address] [place], [place] [address]YPNL 14 (METABOLIC PANEL)03632Pqspuce56748-04.4 mg/dL10/21/2022 [facility] [address] [place], [place] [address]MLNX 14 (METABOLIC PANEL)43182Eceqasudz Ogxpxml74973-46.8 mg/dL 10/21/2022 [facility] [address] [place], [place] [address]S6V-QIZFDLPJIFEYHWG5565-4Wyaas HGB F5F65484-05.6 %10/21/2022 [facility] [address] [place], [place] [address]I0L-DLPLDCYGWGWEMOV2767-5hRY84629-3449 mg/dL10/21/2022 [facility] [address] [place], [place] [address]RBGKQRHP CBC W/ DIFF XBC71714KXG8882-466.4 K/ul10/21/2022 [facility] [address] [place], [place] [address]UPXDVQNJ CBC W/ DIFF TSB85382IOT691-78.78 M/uL10/21/2022 [facility] [address] [place], [place] [address]XQFNDKXD CBC W/ DIFF FYH67617Cfpusafucp095-394.0 g/dL10/21/2022 [facility] [address] [place], [place] [address]GNQZBKTP CBC W/ DIFF PDB68632Dctpkqazeb4746-858.3 %10/21/2022 [facility] [address] [place] [address]XDDJMFST CBC W/ DIFF SHD81223SFE835-000.1 fL10/21/2022 [facility] [address] [place] [address]VFWRDXOG CBC W/ DIFF SVC14247WWA043-501.1 pg10/21/2022 [facility] [address] [place] [address]LFJIGEHE CBC W/ DIFF ATJ21000LBYT450-609.4 g/dL10/21/2022 [facility] [address] [place] [address]YDWTOSGW CBC W/ DIFF IBW73449ZVU741-736.3 %10/21/2022 [facility] [address] [place] [address]KBUTNGIZ CBC W/ DIFF CEX36990Gxhgciwp Xytri470-0670 K/uL10/21/2022 [facility] [address] [place] [address]DCDVCEEG CBC W/ DIFF NGV01133HLR35358-56.0 fL10/21/2022 [facility] [address] [place] [address]QVYNPQEC CBC W/ DIFF TVE75062Qmdhzdhcqmy %770-874.4 %10/21/2022 [facility] [address] [place] [address]GDRQWPDM CBC W/ DIFF GOO09629Ijayoloympg %736-918.3 %10/21/2022 [facility] [address] [place] [address]HBEMAWJH CBC W/ DIFF FNJ19824Wtjccykja %5905-56.3 %10/21/2022 [facility] [address] [place] [address]HETBHDOK CBC W/ DIFF UMV93115Szzaxdhwgbt %713-80.7 %10/21/2022 [facility] [address] [place] [address]TGBTEMDY CBC W/ DIFF ATY85021Ozerbeznn%706-20.3 %10/21/2022 [facility] [address] [place] [address]WHGUSODP CBC W/ DIFF ICP93912Jvlkanab Bomjxxhcpf897-66408 /ul 10/21/2022 [facility] [address] [place] [address]FGSDWRAX CBC W/ DIFF TFG65994Qdzvhipz Yhlsouykul10127-11829 /ul 10/21/2022 [facility] [address] [place] [address]KXZXWLXY CBC W/ DIFF MVG07519Zdeowwic Rjvxjqpm501-7543 /ul 10/21/2022 [facility] [address] [place] [address]TDLBQKBQ CBC W/ DIFF BTM55787Dpuiadzu Wsavvleldh797-540 /ul 10/21/2022 [facility] [address] [place] [address]XFGPVDVQ CBC W/ DIFF PVP07597Pldzuizo Tekqngnr957-216 /ul10/21/2022 [facility] [address] [place] [address]DFBCGLR B-0878964Ickhvge M631017-1354 pg/mL10/21/2022 [facility] [address] [place] [address] Procedures Procedure Codes Date Pain Screening CPT-4: PAS 2022 Tobacco Assessment/Screening CPT-4: TCA Tobacco Assessment/Screening Tobacco Use/Never used tobaccoCPT-4: SQCObthtmr45/18/2023ain Screening Do you suffer from any painful conditions?/Yes (plan required)/Pain currently adequately controlledCPT-4: ZROEuiiwfa86/18/2023lucose Blood TestCPT-4: 10083 2022HypertensionCPT-4: HTN08/17/2022emmes Fany AssessmentCPT-4: DSWA 04/19/2022atient Health QuestionnaireCPT-4: DPHQ04/19/2022nnual Wellness Visit (Subsequent Visit)CPT-4: I799243atient Health QuestionnaireCPT-4: DPHQ 10/07/2021Frailty ScreeningCPT-4: SFD05/20/2021HypertensionCPT-4: HTN04/01/2021 Tobacco Assessment/ScreeningCPT-4: TCA03/13/2021atient Health QuestionnaireCPT- 4: DPHQ03/13/2021Mini Mental State ExamCPT-4: DMMA01/29/2021nnual Wellness Visit (Subsequent Visit)CPT-4: R284983/dvanced Care PlanningCPT-4: VACP 01/13/2021Fall Risk AssessmentSNOMED CT: 233957801 CPT-4: DFRA01/13/2021emmes Fany AssessmentCPT-4: DSWA12/17/2020Urinalysis, dip stickCPT-4: 457655109/24/2020Patient Health QuestionnaireCPT-4: DPHQ 08/19/2020ElectrocardiogramCPT-4: 4788334Tobacco Assessment/Screening CPT-4: TCA01/01/2020Fall Risk AssessmentSNOMED CT: 610621520 CPT-4: DFRA01/01/2020Functional AssessmentCPT-4: DFA01/01/2020Semmes Fany AssessmentCPT-4: DSWA11/28/2019Patient Health QuestionnaireCPT-4: DPHQ11/28/2019 [place] Fany AssessmentCPT-4: DSWA10/17/2019HypertensionCPT-4: HTN10/17/[address]: 513904178 CPT-4: DFRA09/19/2019Functional AssessmentCPT-4: DFA111/20/2018Urinalysis, dip stickCPT-4: 3731434Tobacco Assessment/ScreeningCPT-4: TCA05/24/2019 Patient Health QuestionnaireCPT-4: DPHQ05/24/2019AHA/REBECCA Classification AssessmentCPT-4: DAHA04/25/2019Controlled Substance ReportCPT-4: CTRSU04/25/2019 Urinalysis, dip stickCPT-4: 738699103/28/2019Urinalysis, dip stickCPT-4: 33576 03/28/20190143W9K-HrhvphfpcmstuuxJCG-0: 32575LrrwlkrX1K-MimpadyuqhldxpeKKP-1: 99371 LxahinkT4L-LnbejijqxxgveeiLYK-2: 73014PaugnqbP4O-FuecvsehsbgbbwvCWU-1: 64320 QuvznwlP8Y-XherowguaousohzANU-2: 08868EnfulusY4M-VxyvxxmitxqamlqTRY-6: 31117 PmjobwgA5I-AwhxaxnimstwpefWMO-1: 12780GdhvmyoH6A-WhfaaahoittkdqlKGV-9: 38513 ElkwxfgI9Y-HqsyyzzzaijbetpLVV-5: 83249IebjftgZ8U-OnucxjexworrozbCYP-6: 81346 GihijwvY4K-FcjftwyztwsjxypBVW-0: 86216CjolfsoZfhkwiukcw ReferralSNOMED CT: 872899182 CPT-4: W57Kwaaysl Vital Signs Date Vital 2022 Blood Pressure 1: 104/78 Code: 8480-6 BMI: 54.4 Code: 62118-9 Heart Rate 1: 90 bpm Height: 4'11 Code: 8302-2 Random Blood Sugar: 117/NaN Respiratory Rate: 18 bpm SpO2: 98% Temperature: 36.3 (C) / 97.3 (F) Weight: 269 lbs 9 oz Code: 56900-3 Reason For Visit Reason For Visit Effective Dates Notes diabetes mellitus 2022 hypertension 2022 depression 2022 dermatologic complaint 2022 Interim health update 2022 Encounters Encounter Performer Location Location Address Codes Magdi e ([id number]) Home or Residence Vi sit Est Pt - Moderate Level, 40 mins Diagnosis: Type 2 diabetes mellitus with peripheral neuropathy[ICD10: E11.42] Diagnosis: Hypertensive heart disease[ICD10: I11.9] Diagnosis: Major depression, recurrent[ICD10: F33.9] Diagnosis: Open wound of right middle finger[ICD10: S61.A] Diagnosis: Adult BMI 50.0-59.9 kg/sq m[ICD10: Z68.43] Diagnosis: Encounter for screening for tobacco use[ICD10: Z01.89]Anna Bourgeois [address] [place], [place] [id number] CPT-4: 4307932/ Plan of Care Planned Activity Notes Codes [...] min. < 89% SpO2 continue with [facility] Josh Simon MD will check labs this visit G47.33 Obstructive sleep apnea (adult), J45.909 Asthma breathing stable,continue utilization of Symbicort, albuterol via neb. or MDI q 4 hrs. prn dyspnea, CPAP use continues nightly continue with [facility] Jose BOWMAN last visit 05/31/2022 E11.42 Type 2 diabetes mellitus with peripheral neuropathy, Z68.43 Adult BMI 50.0-59.9 kg/sq m stable glucose monitor - testing bid FBS 115, trying to get closer to 100 continue Ozempic 1mg per week and gabapentin 06/23/2022 Hgb A1C 5.8, GFR 94 continue with Kerrie Pandya OD at [facility] (06/30/21) note 3 pound weight gain, admits to eating more over the holidays, continues to be active and motivated to lose weight, encouraged to limit carbs will check labs this visit F33.9-296.30 Major depression, recurrent continue taking sertraline, buspirone Seroquel complete and has been replaced with Rexulti continue with Marian Obrien in [place] will check labs this visit S61.202A-883.0 Open [...] re-started atorvastatin per prior visit recommendations continue Mediterraneanstyle eating E03.9 Hypothyroidism 06/23/2022 TSH 2.130, continue [...] diclogenac top gel 1% qid prn arthralgia/myalgia 3Patient Education: GecgauuhzywyOmffvzakr38/18/2023Patient Education: Patient Medication YumseokVeklfeqoq26/18/2023atient Education: Diabetes Fnsdojotb76/18/2023atient Education: ZcobtrxrssSngwkgqkq34/18/2023atient Education: LqozzqvPnkfzwqlk36/18/2023ppointment: Anna Culver WPtel: [address] [place] [address] [id number]/17/2021ppointment: Anna Culver WPtel: [address] [place] [address] [id number]: Chivo Bishop WPtel: [address] [place] [address] [id number]: Chivo Bishop WPtel: [address] [place] [address] [id number]: Mikey Nair WPtel: [address] [facility] [id number]: Chivo Bishop WPtel: [address] [place] [address] [id number]: Chivo Bishop WPtel: [phone] [place] [address] [id number]: Chivo Bishop WPtel: [address] [place] [address] USETV111/11/2020ppointment: Chivo Bishop WPtel: [address] [place] [address] USETV110/13/2020ppointment: Chivo Bishop WPtel: [address] [place] [address] USETV1ppointment: Chivo Bishop WPtel: [address] [place] [address] EZVSRM5606/10/2021ppointment: Anna Culver WPtel: [address] [place] [address] USETV06/02/2021ppointment: Chivo Bishop WPtel: [address] [place] [address] USETV05/20/2021ppointment: Anna Culver WPtel: [phone] [place] [address] USETV04/28/2021ppointment: Chivo Bishop WPtel: [address] [place] [address] USETV04/15/2021ppointment: Anna Culver WPtel: [phone] [place] [address] [id number]: Anna Culver WPtel: [address] [place] [address] USETV03/24/2021ppointment: Anna Culver WPtel: [address] [place] [address] USETV03/13/2021ppointment: Anna Culver WPtel: [phone] [place] [address] [id number]: Chivo Bishop WPtel: [phone] [place] [address] [id number]: Anna Culver WPtel: [phone] [place] [address] USETV01/13/2021ppointment: Anna Culver WPtel: [address] [place] [address] [id number]: Chivo Bishop WPtel: [address] [place] [address] USETV11/28/2020ppointment: Anna Culver WPtel: [phone] [place] [address] USETV11/24/2020ppointment: Anna Culver WPtel: [phone] [place] [address] [id number]: Anna Culver WPtel: [phone] [place] [address] [id number]: Anna Culver WPtel: [address] [facility] [address] [place] [address] [id number]: Anna Culver WPtel: [phone] [place] [address] USETV110/19/2019Appointment: Anna Culver WPtel: [phone] [place] [address] USETV1Appointment: Anna Culver WPtel: [address] [place] [address] USETV10/03/2020Appointment: Gianna Birmingham: [address] [facility] 100 [id number] RXDAJV5507/02/2020Appointment: Anna Culver WPtel: [address] [place] [address] [id number]: Anna Culver WPtel: [address] [place] [address] AII20130/09/2020Appointment: Anna Culver WPtel: [phone] [place] [address] [id number]/Appointment: Anna Culver WPtel: [phone] [place] [address] [place] [address] [id number]/Appointment: Anna Culver WPtel: [phone] [place] [address] [place] [address] [id number]/Appointment: Anna Culver WPtel: [address] [place] [address] [id number]: Anna Culver WPtel: [phone] [place] [address] [id number]: Anna Culver WPtel: [phone] [place] [address] [place] [address] [id number]: Vamsi Culverelle WPtel: [address] [place] [address] [address] [place] [address] [id number]: Vamsi Culverelle WPtel: [address] [place] [address] [place] [address] [id number]: Sudha Hernadez WPtel: [address] [facility] [id number]: Sudha Hernadez WPtel: [address] [facility] [address] [id number]: Charlene Oropeza WPtel: [address] [facility] [id number]: Bianca DelgadoDvbxcwK28320/26/2019Appointment: Charlene Oropeza WPtel: [address] [facility] [address] [id number]: Javy, Rasta WPtel: [address] [facility] [address] [id number]: Hasenthilricht, Rasta WPtel: [address] [facility] [address] [id number]: Hadeborah, Rasta WPtel: [address] [facility] [address] [id number]: Javy Rasta WPtel: [address] [facility] [address] [id number]: Pending Gynecology Referral InformationReferral ProcessedReferral: Pending Pulmonology Referral InformationReferralProcessed Referral: Pending Psychiatry Referral InformationReferralInitiatedReferral: Pending Respiratory Services Referral InformationReferralInitiatedReferral: Pending Ophthalmology Referral InformationReferralInitiatedReferral: [facility] WPtel: [address] [facility] [address] [facility] USWriter placed a call out to the patient to notify her that it has been recommended that she be seenby a urologist. Patient agreed to be seen, does not have a provider of choice and no transportationissues. Centralized Traffic Control Operator faxed referral and clinical notes to [facility] in [place], [place] near the patient's home. Patient to [...] seen and prefers a provider in the [place] or [place] area. Centralized Traffic Control Operator placed a call out to everyone listed in the area and the only location that was able to accept the patient's insurance was [address] [phone] and spoke with Maylin. Maylin asked that the patient's referral, face sheet and visit notes be faxed to . Centralized Traffic Control Operator faxed over requested documents. Patient appointment confirmation letter generated and mailed to her home address. Patient to call to schedule an appointment.ProcessedReferral: [facility] WPtel: [address] [facility] [address] UlriuzRB740[address] USPatient notified that it has been advised that she be seen by Neurology. Patient agreed to be seen and prefers to be seen by a provider in the [place], [place] area. Patient denies any concerns with transportation, and prefers to schedule her own appointment. Centralized Traffic Control Operator placed a call out to [facility] and spoke with Neeraj [...] < 89% SpO2; continue with [facility] Josh Simon MD; will check labs this visit G47.33 Obstructive sleep apnea (adult), J45.909 Asthma breathing stable, continue utilization of Symbicort, albuterol via neb. or MDI q 4 hrs. prn dyspnea, CPAP use continues nightly continue with Tr[employer] As[employer] Jose BOWMAN; last visit 05/31/2022 E11.42 Type 2 diabetes mellitus with peripheral neuropathy, Z68.43 Adult BMI 50.0-59.9 kg/sq m stable glucose monitor - testing bid; FBS 115, trying to get closer to 100 continue Ozempic 1mg per week and gabapentin; 06/23/2022 Hgb A1C 5.8, GFR 94; continue with Kerrie Pandya OD at [facility] (06/30/21); note 3 pound weight gain, admits to eating more over the holidays, continues to be active and motivated to lose weight, encouraged to limit carbs will check labs this visit F33.9-296.30 Major depression, recurrent continue taking sertraline, buspirone; Seroquel complete and has been replaced with Rexulti continue with [facility] in [place]; will check labs this visit S61.202A-883.0 Open [...]
--- OUTSIDE RECORDS SUMMARY | 2023-12-07 02:22 | XMS_ITS | CCD ---
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 Negative Stripper Name Role Phone Palomo KING, Anna Primary Care Provider Unav ailable Unavailable Chronic Care Management Unavaila ble Summary Purpose DataExchange Insurance Providers Payer name Policy type / Coverage type Covered green party ID Effective Begin Date Effective End Date [employer] [facility] [id number] Unknown Unknown Family history Mother Diagnosis Age [...] 05/31/2018 Education level Unknown Some High School 10th05/31/20185660SoyiheitbeRojvhosRsownghcyz77/29/2018Tobacco historySNOMED CT: 924715642Qbo never smoked or chewed fbqzswi3405/31/2018Alcohol historySNOMED CT: 159420760Wkcdq drinks fudthvb7905/31/2018Has the patient ever used illegal drugs? UnknownHas never used illegal drugs05/31/2018DNR Order/ Advanced Directive UnknownFull Code05/31/2018 Allergies, Adverse Reactions, Alerts Substance Reaction Codes Entered Date Inactivated Date Status OxyContin itch, RxNorm: 156080 01/13/2021 No Inactive Da te Active *No known food allergies Weysbxv9109/06/2018No Inactive DateActiveMethylprednisolonehivesRxNorm: 6902 09/06/2018No Inactive DateActive Problems Condition Codes Effective Dates Condition St atus GERD (gastroesophageal reflux disease) I CD-10: K21.9 ICD-9: 530.8112ActiveHypertensive heart diseaseICD-10: I11.9 ICD-9: 402.9003/ctiveMajor depression, recurrentICD-10: F33.9 ICD-9: 296.3009/ctiveType 2 diabetes mellitus with peripheral neuropathy ICD-10: E11.42 ICD-9: 250.6002/Active(Z00.00-V70.9) Encounter for general adult medical examination without [...] kg/sq mICD-10: Z68.43 ICD-9: V85.4308/ActiveHypertensionICD-10: I10 ICD-9: 401.903/ctiveAsthmaICD-10: J45.909 ICD-9: 493.9011/03/2018ActiveObstructive sleep apnea (adult) (pediatric)ICD-10: G47.33 ICD-9: 327.2309ActivePost-traumatic stress disorder, unspecifiedICD-10: F43.10 ICD-9: 309.8112ActiveAdjustment disorder with mixed anxiety and depressed moodICD-10: F43.23 ICD-9: 309.28111/06/2017ActiveHypothyroidICD-10: E03.9 ICD-9: 244.912ActiveHyperlipidemia, mixedICD-10: E78.2 ICD-9: 272.203/2ActiveAllergic rhinitisICD-10: J30.9 ICD-9: 477.902ActiveEdema, unspecifiedICD-10: R60.9 ICD-9: 782.310ActiveVitamin D deficiencyICD-10: E55.9 ICD-9: 268.902ActiveHypertensive heart disease with heart failureICD-10: I11.0 ICD-9: [...] R06.00 ICD-9: 786.0905ResolvedElevated liver enzymesICD-10: R74.8 ICD-9: 790.504/esolvedEncounter for screening, unspecifiedICD-10: Z13.9 ICD-9: V82.9111/06/2017ResolvedFamily history of seizuresICD-10: Z84.89 ICD-9: V19.807/esolvedHyperlipidemia, unspecifiedICD-10: E78.5 ICD-9: 272.408ResolvedLong term (current) use of non-steroidal anti- inflammatories (NSAID)ICD-10: Z79.1 ICD-9: V58.6409ResolvedPatient Not SeenICD-10: UXZ.01 ICD-9: XZ0.107ResolvedPatient not seenICD-10: UXZ.01 ICD-9: UXZ.0112esolvedUpper respiratory infectionICD-10: J06.9 ICD-9: 465.908/esolvedSyncope and collapseICD-10: R55 ICD-9: 780.203ActiveUrinary retention with incomplete bladder emptying ICD-10: R33.9 ICD-9: 788.41ActiveApnea, not elsewhere classifiedICD-10: R06.81 ICD-9: 786.0305InactiveChest pain, [...] (4 mg/3 mL) subcutaneous pen injector RxNorm: 6479883 USE 1 UNIT DOSE SUBCUTANEOUSLY ON TUE OF EACH WEEK 023 2022 Inactive omeprazole 40 mg capsule,delayed release RxNorm: 574375 Take 1 Capsule(s) Oral every night at bedtime 023 2022 Inactive gabapentin 300 mg capsule RxNorm: 523493 Take 1 Capsule(s) Oral three times a day 023 2022 Inactive montelukast 10 mg tablet RxNorm: 654201 Take 1 Tablet(s) Oral every day 023 2022 Inactive omeprazole 20 mg capsule,delayed release RxNorm: 405029 Take 1 Capsule(s) Oral every evening 022 2022 Inactive Alcohol Prep Pads RxNorm: 149098 USE EACH MORNING 022 2021 Inactive E11.42 clotrimazole 1 % topical cream RxNorm: 829551 Apply 1 Application Topical two times a day as needed apply to affected area(s) twice daily until healed 2021 Inactive Victoza 2-Sebastián 0.6 mg/0.1 mL (18 mg/3 mL) subcutaneous pen injector RxNorm: 323868 Inject 0.6-1.8 Milligram(s) Subcutaneous once a week Inject 0.6mg/0.1ml week one, 1.2mg/0.2ml week two, 1.8/0.3ml weekly thereafter 022 2021 Inactive ibuprofen 800 mg tablet RxNorm: 787579 Take 1 Tablet(s) Oral Q8H as needed for pain take with food No Stop Date Active Ozempic 1 mg/dose (4 mg/3 mL) subcutaneous pen injector RxNorm: 4119993 Take 1 Unit Dose Subcutaneous QWeek Tuesday 022 2021 Inactive lisinopril 2.5 mg tablet RxNorm: 782245 Take 1 Tablet(s) Oral every day 022 2021 Inactive lisinopril 2.5 mg tablet RxNorm: 436795 Take 1 Tablet(s) Oral every day 022 2022 Inactive hydrochlorothiazide 25 mg tablet RxNorm: 102698 Take 1 Tablet(s) Oral every day 022 2021 Inactive Ozempic 1 mg/dose (4 mg/3 mL) subcutaneous pen injector RxNorm: 1109309 Take 1 Unit Dose Subcutaneous QWeek 022 2021 Inactive famotidine 20 mg tablet RxNorm: 605189 Take 1 Tablet(s) Oral every morning 022 2021 Inactive levothyroxine 50 mcg tablet RxNorm: 162368 Take 1 Tablet(s) Oral every day 2021 Inactive atorvastatin 20 mg tablet RxNorm: 745322 Take 1 Tablet(s) Oral every night at bedtime 2021 Inactive Cleocin T 1 % lotion RxNorm: 645262 Take 2 Gram(s) Topical every day 022 2021 Inactive Cleocin T 1 % lotion RxNorm: 337616 Take 2 Gram(s) Topical every day 2021 Inactive Ozempic 1 mg/dose (4 mg/3 mL) subcutaneous pen injector RxNorm: 5029955 Take 1 Unit Dose Subcutaneous QWeek 022 2021 Inactive Ozempic 0.25 mg or 0.5 mg (2 mg/1.5 mL) subcutaneous pen injector RxNorm: 5115122 INJECT 0.5 MGS SUBCUTANEOUSLY EVERY WEEK 022 2021 Inactive omeprazole 20 mg capsule,delayed release RxNorm: 966276 Take 1 Capsule(s) Oral every evening 2021 Inactive levothyroxine 50 mcg tablet RxNorm: 547935 Take 1 Tablet(s) Oral every day 022 2021 Inactive atorvastatin 20 mg tablet RxNorm: 025183 Take 1 Tablet(s) Oral every night at bedtime 022 2021 Inactive This refill negates all other refills of this medication lisinopril 2.5 mg tablet RxNorm: 543247 Take 1 Tablet(s) Oral every day 2021 Inactive gabapentin 300 mg capsule RxNorm: 082768 Take 1 Capsule(s) Oral three times a day 022 2021 Inactive montelukast 10 mg tablet RxNorm: 736718 Take 1 Tablet(s) Oral every day 2021 Inactive Myrbetriq 50 mg tablet,extended release RxNorm: 0673763 1 Tablet(s) Oral every day No Stop Date Active cholecalciferol (vitamin D3) 50 mcg (2,000 unit) tablet RxNorm: 774557 Take 1 Tablet(s) Oral every day 2022 Inactive Ozempic 0.25 mg or 0.5 mg (2 mg/1.5 mL) subcutaneous pen injector RxNorm: 7983260 inject 0.5 milligrams subcutaneously every week 2021 Inactive Ozempic 0.25 mg or 0.5 mg (2 mg/1.5 mL) subcutaneous pen injector RxNorm: 0200469 Take 0.5 Capsule(s) Injection once a week 2021 Inactive omeprazole 20 mg capsule,delayed release RxNorm: 315330 Take 1 Capsule(s) Oral every evening 2020 Inactive Ozempic 0.25 mg or 0.5 mg (2 mg/1.5 mL) subcutaneous pen injector RxNorm: 0061801 Take 0.25 Milligram(s) Subcutaneous once a week 2021 Inactive Easy Touch Alcohol Prep Pads RxNorm: 251097 USE DIRECTED EACH MORNING 2021 Inactive Probiotic 10 billion cell capsule RxNorm: 6596641 Take 1 Capsule(s) Oral every day 2021 Inactive levothyroxine 50 mcg tablet RxNorm: 972973 Take 1 Tablet(s) Oral every day 2020 Inactive Acid Vehicle Insurance Agent (famotidine) 20 mg tablet RxNorm: 307441 Take 1 Tablet(s) Oral every morning 021 2020 Inactive Heartburn Relief (famotidine) 10 mg tablet RxNorm: 624214 Take 1 Tablet(s) Oral QAM 021 2020 Inactive levothyroxine 50 mcg tablet RxNorm: 271439 Take 1 Tablet(s) Oral QD 2020 Inactive Singulair 10 mg tablet RxNorm: 499061 TAKE (1) TABLET BY MOUTH DAILY 021 2020 Inactive metformin 1,000 mg tablet RxNorm: 591439 1 Tablet(s) Oral two times a day 2021 Inactive lisinopril 2.5 mg tablet RxNorm: 409897 Take 1 Tablet(s) Oral every day 2020 Inactive hydrochlorothiazide 25 mg tablet RxNorm: 066744 Take 1 Tablet(s) Oral every day 021 2020 Inactive ondansetron 4 mg disintegrating tablet RxNorm: 673992 1 Tablet(s) Oral two times a day 2020 Inactive Sudafed 12 Hour 120 mg tablet,extended release RxNorm: 3831270 TAKE 1 TABLET BY MOUTH EVERY 12 HOURS NEEDED 2021 Inactive Heartburn Relief (famotidine) 10 mg tablet RxNorm: 128292 Take 1 Tablet(s) Oral every morning 021 2020 Inactive omeprazole 20 mg capsule,delayed release RxNorm: 418230 1 Capsule(s) Oral every evening 021 2020 Inactive sertraline 100 mg tablet RxNorm: 702602 2 Tablet(s) Oral every day 021 2020 Inactive levothyroxine 50 mcg tablet RxNorm: 704733 TAKE (1) TABLET BY MOUTH DAILY 021 2020 Inactive metformin 500 mg tablet RxNorm: 462178 1 Tablet(s) Oral two times a day take with 500mg to equal 1000mg 021 2020 Inactive gabapentin 300 mg capsule RxNorm: 379885 TAKE 1 CAPSULE BY MOUTH THREE TIMES A DAY 021 2020 Inactive lisinopril 2.5 mg tablet RxNorm: 081837 TAKE 1 TABLET BY MOUTH DAILY 021 2020 Inactive gabapentin 300 mg capsule RxNorm: 731266 TAKE 1 CAPSULE BY MOUTH THREE TIMES A DAY 021 2020 Inactive Singulair 10 mg tablet RxNorm: 123162 TAKE (1) TABLET BY MOUTH DAILY 021 2020 Inactive metformin 1,000 mg tablet RxNorm: 746097 1 Tablet(s) Oral two times a day 021 2020 Inactive atorvastatin 40 mg tablet RxNorm: 022200 1 Tablet(s) Oral every day 021 2020 Inactive omeprazole 20 mg capsule,delayed release RxNorm: 629801 1 Capsule(s) Oral every evening 021 2020 Inactive famotidine 10 mg tablet RxNorm: 454795 1 Tablet(s) Oral every morning 021 2020 Inactive Alcohol Prep Pads RxNorm: 270130 USE EACH MORNING 021 2020 Inactive omeprazole 20 mg capsule,delayed release RxNorm: 616488 1 Capsule(s) Oral two times a day 021 2021 Inactive omeprazole 20 mg capsule,delayed release RxNorm: 941308 TAKE 1 CAPSULE BY MOUTH EVERY DAY 021 2021 Inactive Macrobid 100 mg capsule RxNorm: 641453 1 Capsule(s) Oral every 12 hours with food 2020 Inactive omeprazole 20 mg capsule,delayed release RxNorm: 866744 1 Capsule(s) Oral two times a day 2021 Inactive metformin 1,000 mg tablet RxNorm: 440506 1 Tablet(s) Oral two times a day 2020 Inactive start on September 11, 2020 metformin 500 mg tablet RxNorm: 746744 1 Tablet(s) Oral two times a day take with 500mg to equal 1000mg 2019 Inactive gabapentin 300 mg capsule RxNorm: 578008 TAKE 1 CAPSULE BY MOUTH THREE TIMES DAILY 020 2020 Inactive cetirizine 10 mg tablet RxNorm: 0131144 TAKE (1) TABLET BY MOUTH DAILY 2020 Inactive metformin 500 mg tablet RxNorm: 408682 1 Tablet(s) Oral two times a day 2019 Inactive loperamide 2 mg tablet RxNorm: 232067 1 Tablet(s) Oral as needed take one tablet after each loose stool, maximum of 8 tablets in 24 hours 2021 Inactive Sudafed 12 Hour 120 mg tablet,extended release RxNorm: 5614265 TAKE 1 TABLET BY MOUTH EVERY 12 HOURS NEEDED 2019 Inactive hydrochlorothiazide 25 mg tablet RxNorm: 251931 TAKE (1) TABLET BY MOUTH EVERY DAY 2019 Inactive omeprazole 20 mg capsule,delayed release RxNorm: 377725 TAKE 1 CAPSULE BY MOUTH EVERY DAY 2020 Inactive metformin 500 mg tablet RxNorm: 426750 1 Tablet(s) Oral every day 2019 Inactive True Metrix Glucose Test Strip RxNorm: 1 Test Strips Miscellaneous two times a day as needed No Stop Date Active metformin 500 mg tablet RxNorm: 834566 1 Tablet(s) Oral every day 020 2019 Inactive diclofenac sodium 75 mg tablet,delayed release RxNorm: 119440 1 Tablet(s) PO BID 2021 Inactive This refill negates all other refills of this medication Sudafed 12 Hour 120 mg tablet,extended release RxNorm: 0931174 TAKE 1 TABLET BY MOUTH EVERY 12 HOURS NEEDED 020 2019 Inactive True Metrix Glucose Test Strip RxNorm: 1 Test Strips Miscellaneous every morning 2019 Inactive 100/container True Metrix Glucose Test Strip RxNorm: 1 Test Strips Miscellaneous QAM 2019 Inactive 100/container loperamide 2 mg tablet RxNorm: 173756 1 Tablet(s) Oral as needed take one tablet after each loose stool, maximum of 8 tablets in 24 hours 020 2019 Inactive cetirizine 10 mg tablet RxNorm: 6196760 1 Tablet(s) PO daily 2019 Inactive loperamide 2 mg tablet RxNorm: 513150 1 Tablet(s) Oral as needed take one tablet after each loose stool, maximum of 8 tablets in 24 hours 2019 Inactive quetiapine 100 mg tablet RxNorm: 787091 1 Tablet(s) Oral every night at bedtime 2019 Inactive levothyroxine 50 mcg tablet RxNorm: 709627 1 Tablet(s) PO daily 020 2020 Inactive gabapentin 300 mg capsule RxNorm: 002014 1 Capsule(s) PO TID 2019 Inactive levothyroxine 50 mcg tablet RxNorm: 240139 1 Tablet(s) PO daily 020 2019 Inactive lisinopril 2.5 mg tablet RxNorm: 392268 1 Tablet(s) PO daily 2020 Inactive gabapentin 300 mg capsule RxNorm: 910890 1 Capsule(s) PO TID 2019 Inactive cetirizine 10 mg tablet RxNorm: 1889102 1 Tablet(s) PO daily 020 2019 Inactive Singulair 10 mg tablet RxNorm: 447330 1 Tablet(s) PO daily 020 2020 Inactive gentamicin 0.3 % eye drops RxNorm: 479866 1 Drop(s) ophthalmic (eye) four times a day 2019 Inactive gentamicin 0.3 % eye drops RxNorm: 223414 1 Drop(s) ophthalmic (eye) four times a day 2019 Inactive gentamicin 0.3 % eye drops RxNorm: 677759 1 Drop(s) ophthalmic (eye) four times a day 2019 Inactive hydrochlorothiazide 25 mg tablet RxNorm: 560208 1 Tablet(s) Oral every day 2019 Inactive Sudafed 12 Hour 120 mg tablet,extended release RxNorm: 7258463 TAKE (1) TABLET BY MOUTH EVERY 12 HOURS NEEDED 2019 Inactive loperamide 2 mg tablet RxNorm: 823437 1 Tablet(s) Oral as needed take one tablet after each loose stool, maximum of 8 tablets in 24 hours 2019 Inactive loperamide 2 mg tablet RxNorm: 558482 1 Tablet(s) Oral as needed take one tablet after each loose stool, maximum of 8 tablets in 24 hours 2019 Inactive atorvastatin 40 mg tablet RxNorm: 021944 1 Tablet(s) Oral every day 2020 Inactive quetiapine 100 mg tablet RxNorm: 476380 1 Tablet(s) Oral every night at bedtime 2019 Inactive sertraline 100 mg tablet RxNorm: 655192 1 Tablet(s) Oral 2019 Inactive omeprazole 20 mg capsule,delayed release RxNorm: 335876 1 Capsule(s) Oral every day 2019 Inactive amoxicillin 250 mg capsule RxNorm: 441401 1 Capsule(s) Oral three times a day 2019 Inactive multivitamin with iron-mineral tablet RxNorm: 1 Tablet(s) Oral every day 2021 Inactive cetirizine 10 mg tablet RxNorm: 1112446 1 Tablet(s) PO daily 2019 Inactive This refill negates all other refills of this medication. Please do not auto refill Singulair 10 mg tablet RxNorm: 907756 1 Tablet(s) PO daily 2019 Inactive This refill negates all other refills of this medication gabapentin 300 mg capsule RxNorm: 493241 1 Capsule(s) PO TID 2019 Inactive lisinopril 2.5 mg tablet RxNorm: 500085 1 Tablet(s) PO daily 2019 Inactive levothyroxine 50 mcg tablet RxNorm: 277334 1 Tablet(s) PO daily 2019 Inactive This refill negates all other refills of this medication hydrochlorothiazide 25 mg tablet RxNorm: 017155 1 Tablet(s) Oral every day 2019 Inactive fenugreek seed extract 500 mg capsule RxNorm: 1 Capsule(s) Oral three times a day 2021 Inactive Alcohol Prep Pads RxNorm: 952274 1 Patch TOP QAM 2020 Inactive loperamide 2 mg tablet RxNorm: 732987 1 Tablet(s) Oral as needed take one [...] 2019 Inactive hydrochlorothiazide 25 mg tablet RxNorm: 630347 1 Tablet(s) Oral every day 2019 Inactive Sudafed 12 Hour 120 mg tablet,extended release RxNorm: 7961008 1 Tablet(s) Oral every 12 hours as needed 2018 Inactive omeprazole 20 mg capsule,delayed release RxNorm: 367079 1 Capsule(s) Oral every day 019 2019 Inactive Sudafed 12 Hour 120 mg tablet,extended release RxNorm: 8640763 1 Tablet(s) Oral every 12 hours as needed 019 2018 Inactive pantoprazole 40 mg tablet,delayed release RxNorm: 207633 1 Tablet(s) Oral every day 019 2018 Inactive discontinue any other H2Blkr. and PPI albuterol sulfate 2.5 mg/3 mL (0.083 %) solution for nebulization RxNorm: 914174 1 Vial Inhalation every four hours as needed as needed for dyspnea 019 2019 Inactive 60/box. This refill negates all other refills of this medication. Please do not fill early. Please do not auto refill. Symbicort 160 mcg-4.5 mcg/actuation HFA aerosol inhaler RxNorm: 2993515 2 Puff(s) INH BID No Stop Date Active Alcohol Prep Pads RxNorm: 754676 1 Patch TOP QAM 019 2019 Inactive Ventolin HFA 90 mcg/actuation aerosol inhaler RxNorm: 031203 2 Puff(s) INH QID 019 2019 Inactive Please do not fill early. Please do not auto refill. This refill negates all other refills of this medication True Metrix Glucose Test Strip RxNorm: 1 Test Strips Miscellaneous QAM 019 2019 Inactive 100/container atorvastatin 40 mg tablet RxNorm: 127477 1 Tablet(s) Oral every day 019 2019 Inactive buspirone 7.5 mg tablet RxNorm: 843871 1 Tablet(s) PO BID 019 2020 Inactive This refill negates all other refills of this medication hydrochlorothiazide 12.5 mg tablet RxNorm: 368400 1 Tablet(s) PO QAM 019 2019 Inactive levmetamfetamine 50 mg nasal inhaler RxNorm: 1 Unit(s) NASAL Q3-4H Do not use more than every 3 hours or 8 times/24hours 019 2021 Inactive Please do not auto refill. This refill negates all other refills of this medication Ventolin HFA 90 mcg/actuation aerosol inhaler RxNorm: 349086 2 Puff(s) INH QID 019 2018 Inactive Please do not fill early. Please do not auto refill. This refill negates all other refills of this medication Singulair 10 mg tablet RxNorm: 386067 1 Tablet(s) PO daily 019 2019 Inactive This refill negates all other refills of this medication cetirizine 10 mg tablet RxNorm: 6538029 1 Tablet(s) PO daily 019 2019 Inactive This refill negates all other refills of this medication. Please do not auto refill levothyroxine 50 mcg tablet RxNorm: 124973 1 Tablet(s) PO daily 019 2019 Inactive This refill negates all other refills of this medication diclofenac sodium 75 mg tablet,delayed release RxNorm: 711265 1 Tablet(s) PO BID 019 2019 Inactive This refill negates all other refills of this medication ranitidine 150 mg tablet RxNorm: 467409 1 Tablet(s) PO BID 019 2018 Inactive This refill negates all other refills of this medication Calcium 600-D3 Plus (mag-zinc) 600 mg calcium-800 unit-50 mg tablet RxNorm: 1 Tablet(s) PO daily take an additonal tablet for itching. 019 2018 Inactive This refill negates all other refills of this medication albuterol sulfate 2.5 mg/3 mL (0.083 %) solution for nebulization RxNorm: 359044 1 Vial INH QID 019 2018 Inactive 60/box. This refill negates all other refills of this medication. Please do not fill early. Please do not auto refill. lisinopril 2.5 mg tablet RxNorm: 847776 1 Tablet(s) PO daily 019 2019 Inactive gabapentin 300 mg capsule RxNorm: 006374 1 Capsule(s) PO TID 019 2019 Inactive atorvastatin 20 mg tablet RxNorm: 923827 1 Tablet(s) PO QHS 2018 Inactive This refill negates all other refills of this medication TRUEplus Lancets 30 gauge RxNorm: 1 Lancets Miscellaneous QAM 2018 Inactive 100/box gabapentin 300 mg capsule RxNorm: 103453 1 Capsule(s) PO TID 019 2018 Inactive Flintstones Complete (iron) 18 mg iron chewable tablet RxNorm: 1 Tablet(s) PO daily 019 2021 Inactive This refill negates all other refills of this medication gabapentin 300 mg capsule RxNorm: 024066 1 Capsule(s) PO TID as needed 2018 Inactive True Metrix Glucose Test Strip RxNorm: 1 Test Strips Miscellaneous QAM 019 2018 Inactive 100/container Alcohol Prep Pads RxNorm: 722568 1 Patch TOP QAM 2018 Inactive TRUEplus Lancets 30 gauge RxNorm: 1 Lancets Miscellaneous QAM 019 2018 Inactive 100/box lisinopril 2.5 mg tablet RxNorm: 090179 1 Tablet(s) PO daily 2018 Inactive ranitidine 150 mg tablet RxNorm: 691651 1 Tablet(s) PO BID 2018 Inactive This refill negates all other refills of this medication albuterol sulfate 2.5 mg/3 mL (0.083 %) solution for nebulization RxNorm: 677777 1 Vial INH QID 019 2018 Inactive [...] this medication gabapentin 300 mg capsule RxNorm: 913859 1 Capsule(s) PO TID as needed 019 2018 Inactive atorvastatin 20 mg tablet RxNorm: 097456 1 Tablet(s) PO QHS 019 2018 Inactive This refill negates all other refills of this medication trazodone 50 mg tablet RxNorm: 235453 1 Tablet(s) PO QHS 019 2018 Inactive This refill negates all other refills of this medication Ventolin HFA 90 mcg/actuation aerosol inhaler RxNorm: 591960 2 Puff(s) INH QID 019 2018 Inactive Please do not fill early. Please do not auto refill. This refill negates all other refills of this medication Calcium 600-D3 Plus 600 mg calcium-800 unit-50 mg tablet RxNorm: 1 Tablet(s) PO daily take an additonal tablet for itching. 019 2018 Inactive This refill negates all other refills of this medication Singulair 10 mg tablet RxNorm: 294416 1 Tablet(s) PO daily 019 2018 Inactive This refill negates all other refills of this medication buspirone 7.5 mg tablet RxNorm: 284033 1 Tablet(s) PO BID 019 2018 Inactive This refill negates all other refills of this medication diclofenac sodium 75 mg tablet,delayed release RxNorm: 589440 1 Tablet(s) PO BID 019 2018 Inactive This refill negates all other refills of this medication hydrochlorothiazide 12.5 mg tablet RxNorm: 735857 1 Tablet(s) PO QAM 019 2018 Inactive metoprolol succinate ER 50 mg tablet,extended release 24 hr RxNorm: 920045 1 Tablet(s) PO daily 019 2018 Inactive This refill negates all other refills of this medication levothyroxine 50 mcg tablet RxNorm: 504734 1 Tablet(s) PO daily 019 2018 Inactive This refill negates all other refills of this medication cetirizine 10 mg tablet RxNorm: 2758168 1 Tablet(s) PO daily 019 2018 Inactive This refill negates all other refills of this medication. Please do not auto refill Flintstones Complete (iron) 18 mg iron chewable tablet RxNorm: 1 Tablet(s) PO daily 019 2018 Inactive This refill negates all other refills of this medication buspirone 7.5 mg tablet RxNorm: 596576 1 Tablet(s) PO BID 2018 Inactive cetirizine 10 mg tablet RxNorm: 3481142 1 Tablet(s) PO daily 2018 Inactive Guaiasorb DM 10 mg-100 mg/5 mL oral liquid RxNorm: 576498 10 Milliliter(s) PO As needed every 4 hr 2018 Inactive Vicks Vaporub 4.7 %-1.2 %-2.6 % topical ointment RxNorm: 1770600 1 Application TOP TID 2018 Inactive levmetamfetamine 50 mg nasal inhaler RxNorm: 1 Unit(s) NASAL Q3-4H 2017 Inactive sertraline 50 mg tablet RxNorm: 621683 1 Tablet(s) PO daily 018 2018 Inactive Please note dose trazodone 50 mg tablet RxNorm: 487698 1 Tablet(s) PO QHS 018 2018 Inactive sertraline 50 mg tablet RxNorm: 884167 1 Tablet(s) PO daily 018 2017 Inactive amoxicillin 500 mg tablet RxNorm: 849836 1 Tablet(s) PO Q12H 018 2017 Inactive albuterol sulfate 2.5 mg/3 mL (0.083 %) solution for nebulization RxNorm: 620407 1 Vial INH QID 018 2018 Inactive 60/box. Please do not fill early. Please do not auto refill. Prozac 10 mg capsule RxNorm: 594610 1 Capsule(s) PO daily 018 2017 Inactive buspirone 7.5 mg tablet RxNorm: 120541 1 Tablet(s) PO BID 018 2018 Inactive gabapentin 300 mg capsule RxNorm: 436645 1 Capsule(s) PO TID as needed 018 2018 Inactive hydrochlorothiazide 12.5 mg tablet RxNorm: 325418 1 Tablet(s) PO QAM 018 2018 Inactive ranitidine 150 mg tablet RxNorm: 028954 1 Tablet(s) PO BID 018 2018 Inactive Macrobid 100 mg capsule RxNorm: 827573 1 Capsule(s) PO Q12H 018 2017 Inactive Singulair 10 mg tablet RxNorm: 908810 1 Tablet(s) PO daily 018 2018 Inactive Ventolin HFA 90 mcg/actuation aerosol inhaler RxNorm: 2446804 2 Puff(s) INH QID 018 2018 Inactive Singulair 10 mg tablet RxNorm: 930365 1 Tablet(s) PO daily 018 2017 Inactive buspirone 7.5 mg tablet RxNorm: 890545 1 Tablet(s) PO BID 018 2017 Inactive Prozac 10 mg capsule RxNorm: 510036 1 Capsule(s) PO daily 018 2017 Inactive diclofenac sodium 75 mg tablet,delayed release RxNorm: 888716 1 Tablet(s) PO BID 018 2017 Inactive lisinopril 2.5 mg tablet RxNorm: 869917 1 Tablet(s) PO daily 018 2017 Inactive Neilmed Pediatric Sinus Rinse Refill packet RxNorm: 1 Unit Dose NASAL PRN 018 2021 Inactive metoprolol succinate ER 50 mg tablet,extended release 24 hr RxNorm: 425090 1 Tablet(s) PO daily 018 2017 Inactive levothyroxine 50 mcg tablet RxNorm: 115028 1 Tablet(s) PO daily 018 2017 Inactive TRUEplus Lancets 30 gauge RxNorm: 1 Lancets Miscellaneous QAM 018 2017 Inactive 100/box Ventolin HFA 90 mcg/actuation aerosol inhaler RxNorm: 579225 2 Puff(s) INH QID 018 2017 Inactive Aleve 220 mg capsule RxNorm: 2852768 1 Capsule(s) PO BID 018 2018 Inactive ranitidine 150 mg tablet RxNorm: 086384 1 Tablet(s) PO BID 018 2017 Inactive gabapentin 300 mg capsule RxNorm: 138600 1 Capsule(s) PO TID as needed 018 2017 Inactive atorvastatin 20 mg tablet RxNorm: 581371 1 Tablet(s) PO QHS 018 2017 Inactive True Metrix Glucose Test Strip RxNorm: 1 [facility] Inactive 50/container Calcium 600-D3 Plus 600 mg calcium-800 unit-50 mg tablet RxNorm: 1 Tablet(s) PO daily take an additonal tablet for itching. 018 2017 Inactive hydrochlorothiazide 12.5 mg tablet RxNorm: 774221 1 Tablet(s) PO QAM 018 2017 Inactive Flintstones Complete (iron) 18 mg iron chewable tablet RxNorm: 1 Tablet(s) PO daily 018 2017 Inactive True Metrix Glucose Meter RxNorm: miscellaneous 019 2018 Inactive sertraline 50 mg tablet RxNorm: 136067 1 Tablet(s) PO daily 020 2019 Inactive loperamide 2 mg tablet RxNorm: 382085 oral 019 2018 Inactive d-mannose oral powder RxNorm: PO 018 2021 Inactive Symbicort 160 mcg-4.5 mcg/actuation HFA aerosol inhaler RxNorm: 6304050 2 Puff(s) INH BID 019 2018 Inactive Medication Administered No Medication Administered data Procedures Procedure Codes Date Patient Health Questionnaire CPT-4: DPHQ Pain Screening CPT-4: PAS 2022 Tobacco Assessment/Screening CPT-4: TCA Hypertension CPT-4: HTN 08/17/2022 Pickett Fany Assessment CPT-4: DSWA 04/02 Patient Health [...] CPT-4: VACP Fall Risk Assessment SNOMED CT: 16696795 4 CPT-4: DFRA01/13/2021emmes Fany AssessmentCPT-4: DSWA12/17/2020Urinalysis, dip stickCPT-4: 267522209/24/2020Patient Health QuestionnaireCPT-4: DPHQ 08/19/2020ElectrocardiogramCPT-4: 1693904Tobacco Assessment/Screening CPT-4: TCA01/01/2020Fall Risk AssessmentSNOMED CT: 912748784 CPT-4: DFRA01/01/2020Functional AssessmentCPT-4: DFA01/01/2020Semmes Fany AssessmentCPT-4: DSWA11/28/2019Patient Health QuestionnaireCPT-4: DPHQ11/28/2019 [place]ett Fany AssessmentCPT-4: DSWA10/17/2019HypertensionCPT-4: HTN10/17/[address]: 908498683 CPT-4: DFRA09/19/2019Functional AssessmentCPT-4: DFA111/20/2018Urinalysis, dip stickCPT-4: 7554926Tobacco Assessment/ScreeningCPT-4: TCA05/24/2019 Patient Health QuestionnaireCPT-4: DPHQ05/24/2019AHA/REBECCA Classification AssessmentCPT-4: DAHA04/25/2019Controlled Substance ReportCPT-4: CTRSU04/25/2019 Urinalysis, dip stickCPT-4: 0320241Urinalysis, dip stickCPT-4: 96222 03/28/20191565J8S-VmaaajudkbujvtbHCA-8: 73840PeuvbvmI3T-OlppqwihjyowsehCDR-2: 61799 LaclhgnD2G-TmusjcicemfqmknJMW-3: 95952KkjrolmX8D-OsxlktbgttfwdwaRFW-0: 24118 CcnouywZ2M-ZddhzvoiovhorxqTJF-8: 76045SyipszjB6E-TakincdfeifggfnVBH-0: 68571 NclbnsrT9O-ArjsjdrbhkczxsbQRU-2: 42039RgacenpD3H-MmrqodrinkfulxlRZA-1: 65113 FkljxrrO5L-NustaamhxkhrqwxAHX-6: 48662SqpciiqH0N-CtvctwozoskpvsfTFJ-3: 15559 UtqfjjhF3F-IlljpjchibixydnMZE-2: 32330SmryqqxXhavcucdhp ReferralSNOMED CT: 379821086 CPT-4: J38Jjnautm Reason For Visit No Reason For Visit data Plan of Care Planned Activity Notes Codes Status Date Referral: Pending Gynecology Referral Informatio n Referral ProcessedReferral: Pending Pulmonology Referral InformationReferralProcessed Referral: Pending Psychiatry Referral InformationReferralInitiatedReferral: Pending Respiratory Services Referral InformationReferralInitiatedReferral: Pending Ophthalmology Referral InformationReferralInitiatedReferral: [facility] WPtel: [address] [id number] USWriter placed a call out to the patient to notify her that it has been recommended that she be seenby a urologist. Patient agreed to be seen, does not have a provider of choice and no transportationissues. Chemists faxed referral and clinical notes to [facility] in [place], [place] near the patient's home. Patient to [...] seen and prefers a provider in the [place] or [place] area. Chemists placed a call out to everyone listed in the area and the only location that was able to accept the patient's insurance was [address] [address] and spoke with Maylin. Maylin asked that the patient's referral, face sheet and visit notes be faxed to . Chemists faxed over requested documents. Patient appointment confirmation letter generated and mailed to her home address. Patient to call to schedule an appointment.ProcessedReferral: [facility] WPtel: [address] [place], [place] [id number] USPatient notified that it has been advised that she be seen by Neurology. Patient agreed to be seen and prefers to be seen by a provider in the [place], [place] area. Patient denies any concerns with transportation, and prefers to schedule her own appointment. Chemists placed a call out to [facility] [...]
--- OUTSIDE RECORDS SUMMARY | 2023-12-07 02:22 | XMS_ITS | CCD ---
Author Name Leena Culver NP Address [id number] [place] [address] [address] [place] [address] Phone Organization [facility] Phone Care Team Providers Care Lead Generator Name Role Phone Anna Culver NP Primary Care Provider Unav ailable Unavailable Chronic Care Management Unavaila ble Summary Purpose DataExchange Insurance Providers Payer name Policy type / Coverage type Covered alliance party ID Effective Begin Date Effective End Date SUKI MAYO [id number] Unknown Unknown Family history Mother Diagnosis Age [...] 05/31/2018 Education level Unknown Some High School 10th05/31/20188534CfnmcjbjqsZjcepwbGmjuibvfkj36/29/2018Tobacco historySNOMED CT: [id number] never smoked or chewed tojziim4405/31/2018Alcohol historySNOMED CT: 066988991Tyuta drinks frckemf0405/31/2018Has the patient ever used illegal drugs? UnknownHas never used illegal drugs05/31/2018DNR Order/ Advanced Directive UnknownFull Code05/31/2018 Allergies, Adverse Reactions, Alerts Substance Reaction Codes Entered Date Inactivated Date Status OxyContin itch, RxNorm: 608313 01/13/2021 No Inactive Da te Active *No known food allergies Lvqpkpu1909/06/2018No Inactive DateActiveMethylprednisolonehivesRxNorm: 6902 09/06/2018No Inactive DateActive Problems Condition Codes Effective Dates Condition St atus GERD (gastroesophageal reflux disease) I CD-10: K21.9 ICD-9: 530.8112/03/2019ActiveHypertensive heart diseaseICD-10: I11.9 ICD-9: 402.9003/ctiveMajor depression, recurrentICD-10: [...] ICD-9: V85.4308/ActiveHypertensionICD-10: I10 ICD-9: 401.903/ctiveAsthmaICD-10: J45.909 ICD-9: 493.9011ActiveObstructive sleep apnea (adult) (pediatric)ICD-10: G47.33 ICD-9: 327.2309ActivePost-traumatic [...] 079.8909/1ResolvedDiarrheaICD-10: R19.7 ICD-9: 787.9111/esolvedDyspnea, unspecifiedICD-10: R06.00 ICD-9: 786.0902/08/2019ResolvedElevated [...] Date Stop Date Status Fill Instructions omeprazole 40 mg capsule,delayed release RxNorm: 20021111 Take 1 Capsule(s) Oral every night at bedtime 023 2022 Inactive gabapentin 300 mg capsule RxNorm: 596839 Take 1 Capsule(s) Oral three times a day 023 2022 Inactive montelukast 10 mg tablet RxNorm: 20011106 Take 1 Tablet(s) Oral every day 023 2022 Inactive omeprazole 20 mg capsule,delayed release RxNorm: 711895 Take 1 Capsule(s) Oral every evening 2022 Inactive Alcohol Prep Pads RxNorm: 967030 USE EACH MORNING 022 2021 Inactive E11.42 clotrimazole 1 % topical cream RxNorm: 043282 Apply 1 Application Topical two times a day as needed apply to affected area(s) twice daily until healed 2021 Inactive Victoza 2-Sebastián 0.6 mg/0.1 mL (18 mg/3 mL) subcutaneous pen injector RxNorm: 517168 Inject 0.6-1.8 Milligram(s) Subcutaneous once a week Inject 0.6mg/0.1ml week one, 1.2mg/0.2ml week two, 1.8/0.3ml weekly thereafter 2021 Inactive ibuprofen 800 mg tablet RxNorm: 484083 Take 1 Tablet(s) Oral Q8H as needed for pain take with food No Stop Date Active Ozempic 1 mg/dose (4 mg/3 mL) subcutaneous pen injector RxNorm: 7020774 Take 1 Unit Dose Subcutaneous QWeek Tuesday 022 2021 Inactive lisinopril 2.5 mg tablet RxNorm: 700727 Take 1 Tablet(s) Oral every day 022 2021 Inactive lisinopril 2.5 mg tablet RxNorm: 792463 Take 1 Tablet(s) Oral every day 022 2022 Inactive hydrochlorothiazide 25 mg tablet RxNorm: 605267 Take 1 Tablet(s) Oral every day 022 2021 Inactive Ozempic 1 mg/dose (4 mg/3 mL) subcutaneous pen injector RxNorm: 1131335 Take 1 Unit Dose Subcutaneous QWeek 022 2021 Inactive famotidine 20 mg tablet RxNorm: 931903 Take 1 Tablet(s) Oral every morning 022 2021 Inactive levothyroxine 50 mcg tablet RxNorm: 290643 Take 1 Tablet(s) Oral every day 022 2021 Inactive atorvastatin 20 mg tablet RxNorm: 942740 Take 1 Tablet(s) Oral every night at bedtime 2021 Inactive Cleocin T 1 % lotion RxNorm: 866318 Take 2 Gram(s) Topical every day 022 2021 Inactive Cleocin T 1 % lotion RxNorm: 143499 Take 2 Gram(s) Topical every day 022 2021 Inactive Ozempic 1 mg/dose (4 mg/3 mL) subcutaneous pen injector RxNorm: 2333797 Take 1 Unit Dose Subcutaneous QWeek 022 2021 Inactive Ozempic 0.25 mg or 0.5 mg (2 mg/1.5 mL) subcutaneous pen injector RxNorm: 7066979 INJECT 0.5 MGS SUBCUTANEOUSLY EVERY WEEK 022 2021 Inactive omeprazole 20 mg capsule,delayed release RxNorm: 829548 Take 1 Capsule(s) Oral every evening 022 2021 Inactive levothyroxine 50 mcg tablet RxNorm: 440995 Take 1 Tablet(s) Oral every day 022 2021 Inactive atorvastatin 20 mg tablet RxNorm: 913694 Take 1 Tablet(s) Oral every night at bedtime 022 2021 Inactive This refill negates all other refills of this medication lisinopril 2.5 mg tablet RxNorm: 917968 Take 1 Tablet(s) Oral every day 2021 Inactive gabapentin 300 mg capsule RxNorm: 060734 Take 1 Capsule(s) Oral three times a day 022 2021 Inactive montelukast 10 mg tablet RxNorm: 190251 Take 1 Tablet(s) Oral every day 2021 Inactive cholecalciferol (vitamin D3) 50 mcg (2,000 unit) tablet RxNorm: 563226 Take 1 Tablet(s) Oral every day 2022 Inactive Myrbetriq 50 mg tablet,extended release RxNorm: 8196909 1 Tablet(s) Oral every day No Stop Date Active Ozempic 0.25 mg or 0.5 mg (2 mg/1.5 mL) subcutaneous pen injector RxNorm: 4998327 inject 0.5 milligrams subcutaneously every week 2021 Inactive Ozempic 0.25 mg or 0.5 mg (2 mg/1.5 mL) subcutaneous pen injector RxNorm: 2351892 Take 0.5 Capsule(s) Injection once a week 2021 Inactive omeprazole 20 mg capsule,delayed release RxNorm: 065109 Take 1 Capsule(s) Oral every evening 2020 Inactive Ozempic 0.25 mg or 0.5 mg (2 mg/1.5 mL) subcutaneous pen injector RxNorm: 0303617 Take 0.25 Milligram(s) Subcutaneous once a week 2021 Inactive Easy Touch Alcohol Prep Pads RxNorm: 254094 USE DIRECTED EACH MORNING 2021 Inactive Probiotic 10 billion cell capsule RxNorm: 7760111 Take 1 Capsule(s) Oral every day 021 2021 Inactive levothyroxine 50 mcg tablet RxNorm: 255583 Take 1 Tablet(s) Oral every day 2020 Inactive Acid Motor Runner (famotidine) 20 mg tablet RxNorm: 234821 Take 1 Tablet(s) Oral every morning 021 2020 Inactive Heartburn Relief (famotidine) 10 mg tablet RxNorm: 211302 Take 1 Tablet(s) Oral QAM 021 2020 Inactive levothyroxine 50 mcg tablet RxNorm: 507222 Take 1 Tablet(s) Oral QD 2020 Inactive Singulair 10 mg tablet RxNorm: 349627 TAKE (1) TABLET BY MOUTH DAILY 2020 Inactive metformin 1,000 mg tablet RxNorm: 157608 1 Tablet(s) Oral two times a day 2021 Inactive lisinopril 2.5 mg tablet RxNorm: 645671 Take 1 Tablet(s) Oral every day 021 2020 Inactive hydrochlorothiazide 25 mg tablet RxNorm: 328605 Take 1 Tablet(s) Oral every day 021 2020 Inactive ondansetron 4 mg disintegrating tablet RxNorm: 916731 1 Tablet(s) Oral two times a day 2020 Inactive Sudafed 12 Hour 120 mg tablet,extended release RxNorm: 7695339 TAKE 1 TABLET BY MOUTH EVERY 12 HOURS NEEDED 2021 Inactive Heartburn Relief (famotidine) 10 mg tablet RxNorm: 856234 Take 1 Tablet(s) Oral every morning 021 2020 Inactive omeprazole 20 mg capsule,delayed release RxNorm: 093064 1 Capsule(s) Oral every evening 021 2020 Inactive sertraline 100 mg tablet RxNorm: 807022 2 Tablet(s) Oral every day 021 2020 Inactive levothyroxine 50 mcg tablet RxNorm: 955856 TAKE (1) TABLET BY MOUTH DAILY 021 2020 Inactive metformin 500 mg tablet RxNorm: 267784 1 Tablet(s) Oral two times a day take with 500mg to equal 1000mg 021 2020 Inactive gabapentin 300 mg capsule RxNorm: 097224 TAKE 1 CAPSULE BY MOUTH THREE TIMES A DAY 021 2020 Inactive lisinopril 2.5 mg tablet RxNorm: 075108 TAKE 1 TABLET BY MOUTH DAILY 021 2020 Inactive gabapentin 300 mg capsule RxNorm: 775427 TAKE 1 CAPSULE BY MOUTH THREE TIMES A DAY 021 2020 Inactive Singulair 10 mg tablet RxNorm: 117572 TAKE (1) TABLET BY MOUTH DAILY 2020 Inactive metformin 1,000 mg tablet RxNorm: 987865 1 Tablet(s) Oral two times a day 021 2020 Inactive atorvastatin 40 mg tablet RxNorm: 829065 1 Tablet(s) Oral every day 021 2020 Inactive omeprazole 20 mg capsule,delayed release RxNorm: 191788 1 Capsule(s) Oral every evening 021 2020 Inactive famotidine 10 mg tablet RxNorm: 098061 1 Tablet(s) Oral every morning 021 2020 Inactive Alcohol Prep Pads RxNorm: 481065 USE EACH MORNING 021 2020 Inactive omeprazole 20 mg capsule,delayed release RxNorm: 362013 1 Capsule(s) Oral two times a day 2021 Inactive omeprazole 20 mg capsule,delayed release RxNorm: 322231 TAKE 1 CAPSULE BY MOUTH EVERY DAY 2021 Inactive Macrobid 100 mg capsule RxNorm: 784285 1 Capsule(s) Oral every 12 hours with food 2020 Inactive omeprazole 20 mg capsule,delayed release RxNorm: 860057 1 Capsule(s) Oral two times a day 2021 Inactive metformin 1,000 mg tablet RxNorm: 382898 1 Tablet(s) Oral two times a day 2020 Inactive start on September 11, 2020 metformin 500 mg tablet RxNorm: 612129 1 Tablet(s) Oral two times a day take with 500mg to equal 1000mg 2019 Inactive gabapentin 300 mg capsule RxNorm: 776666 TAKE 1 CAPSULE BY MOUTH THREE TIMES DAILY 020 2020 Inactive cetirizine 10 mg tablet RxNorm: 5141740 TAKE (1) TABLET BY MOUTH DAILY 2020 Inactive metformin 500 mg tablet RxNorm: 541364 1 Tablet(s) Oral two times a day 2019 Inactive loperamide 2 mg tablet RxNorm: 850659 1 Tablet(s) Oral as needed take one tablet after each loose stool, maximum of 8 tablets in 24 hours 2021 Inactive Sudafed 12 Hour 120 mg tablet,extended release RxNorm: 9397697 TAKE 1 TABLET BY MOUTH EVERY 12 HOURS NEEDED 2019 Inactive hydrochlorothiazide 25 mg tablet RxNorm: 011732 TAKE (1) TABLET BY MOUTH EVERY DAY 2019 Inactive omeprazole 20 mg capsule,delayed release RxNorm: 215019 TAKE 1 CAPSULE BY MOUTH EVERY DAY 2020 Inactive metformin 500 mg tablet RxNorm: 304227 1 Tablet(s) Oral every day 2019 Inactive True Metrix Glucose Test Strip RxNorm: 1 Test Strips Miscellaneous two times a day as needed No Stop Date Active metformin 500 mg tablet RxNorm: 163806 1 Tablet(s) Oral every day 2019 Inactive diclofenac sodium 75 mg tablet,delayed release RxNorm: 971900 1 Tablet(s) PO BID 2021 Inactive This refill negates all other refills of this medication Sudafed 12 Hour 120 mg tablet,extended release RxNorm: 8157549 TAKE 1 TABLET BY MOUTH EVERY 12 HOURS NEEDED 020 2019 Inactive True Metrix Glucose Test Strip RxNorm: 1 Test Strips Miscellaneous every morning 06/08/04 Inactive 100/container True Metrix Glucose Test Strip RxNorm: 1 Test Strips Miscellaneous QAM 2019 Inactive 100/container loperamide 2 mg tablet RxNorm: 748233 1 Tablet(s) Oral as needed take one tablet after each loose stool, maximum of 8 tablets in 24 hours 020 2019 Inactive cetirizine 10 mg tablet RxNorm: 9328824 1 Tablet(s) PO daily 2019 Inactive loperamide 2 mg tablet RxNorm: 162953 1 Tablet(s) Oral as needed take one tablet after each loose stool, maximum of 8 tablets in 24 hours 2019 Inactive quetiapine 100 mg tablet RxNorm: 381116 1 Tablet(s) Oral every night at bedtime 2019 Inactive levothyroxine 50 mcg tablet RxNorm: 447203 1 Tablet(s) PO daily 2020 Inactive gabapentin 300 mg capsule RxNorm: 542674 1 Capsule(s) PO TID 2019 Inactive levothyroxine 50 mcg tablet RxNorm: 020416 1 Tablet(s) PO daily 2019 Inactive lisinopril 2.5 mg tablet RxNorm: 081364 1 Tablet(s) PO daily 2020 Inactive gabapentin 300 mg capsule RxNorm: 970521 1 Capsule(s) PO TID 2019 Inactive cetirizine 10 mg tablet RxNorm: 9849237 1 Tablet(s) PO daily 2019 Inactive Singulair 10 mg tablet RxNorm: 471978 1 Tablet(s) PO daily 2020 Inactive gentamicin 0.3 % eye drops RxNorm: 615979 1 Drop(s) ophthalmic (eye) four times a day 2019 Inactive gentamicin 0.3 % eye drops RxNorm: 892346 1 Drop(s) ophthalmic (eye) four times a day 2019 Inactive gentamicin 0.3 % eye drops RxNorm: 966795 1 Drop(s) ophthalmic (eye) four times a day 2019 Inactive hydrochlorothiazide 25 mg tablet RxNorm: 722137 1 Tablet(s) Oral every day 2019 Inactive Sudafed 12 Hour 120 mg tablet,extended release RxNorm: 2269083 TAKE (1) TABLET BY MOUTH EVERY 12 HOURS NEEDED 2019 Inactive loperamide 2 mg tablet RxNorm: 369405 1 Tablet(s) Oral as needed take one tablet after each loose stool, maximum of 8 tablets in 24 hours 2019 Inactive loperamide 2 mg tablet RxNorm: 925625 1 Tablet(s) Oral as needed take one tablet after each loose stool, maximum of 8 tablets in 24 hours 2019 Inactive atorvastatin 40 mg tablet RxNorm: 260477 1 Tablet(s) Oral every day 2020 Inactive quetiapine 100 mg tablet RxNorm: 810368 1 Tablet(s) Oral every night at bedtime 2019 Inactive sertraline 100 mg tablet RxNorm: 629776 1 Tablet(s) Oral 2019 Inactive omeprazole 20 mg capsule,delayed release RxNorm: 436641 1 Capsule(s) Oral every day 2019 Inactive amoxicillin 250 mg capsule RxNorm: 232090 1 Capsule(s) Oral three times a day 2019 Inactive multivitamin with iron-mineral tablet RxNorm: 1 Tablet(s) Oral every day 2021 Inactive cetirizine 10 mg tablet RxNorm: 8197046 1 Tablet(s) PO daily 2019 Inactive This refill negates all other refills of this medication. Please do not auto refill Singulair 10 mg tablet RxNorm: 610214 1 Tablet(s) PO daily 020 2019 Inactive This refill negates all other refills of this medication gabapentin 300 mg capsule RxNorm: 471840 1 Capsule(s) PO TID 2019 Inactive lisinopril 2.5 mg tablet RxNorm: 265662 1 Tablet(s) PO daily 2019 Inactive levothyroxine 50 mcg tablet RxNorm: 715530 1 Tablet(s) PO daily 2019 Inactive This refill negates all other refills of this medication hydrochlorothiazide 25 mg tablet RxNorm: 327426 1 Tablet(s) Oral every day 2019 Inactive fenugreek seed extract 500 mg capsule RxNorm: 1 Capsule(s) Oral three times a day 2021 Inactive Alcohol Prep Pads RxNorm: 147166 1 Patch TOP QAM 2020 Inactive loperamide 2 mg tablet RxNorm: 214968 1 Tablet(s) Oral as needed take one [...] 2019 Inactive hydrochlorothiazide 25 mg tablet RxNorm: 128709 1 Tablet(s) Oral every day 019 2019 Inactive Sudafed 12 Hour 120 mg tablet,extended release RxNorm: 4568669 1 Tablet(s) Oral every 12 hours as needed 019 2018 Inactive omeprazole 20 mg capsule,delayed release RxNorm: 056805 1 Capsule(s) Oral every day 019 2019 Inactive Sudafed 12 Hour 120 mg tablet,extended release RxNorm: 4993391 1 Tablet(s) Oral every 12 hours as needed 019 2018 Inactive pantoprazole 40 mg tablet,delayed release RxNorm: 471670 1 Tablet(s) Oral every day 019 2018 Inactive discontinue any other H2Blkr. and PPI albuterol sulfate 2.5 mg/3 mL (0.083 %) solution for nebulization RxNorm: 612839 1 Vial Inhalation every four hours as needed as needed for dyspnea 2019 Inactive 60/box. This refill negates all other refills of this medication. Please do not fill early. Please do not auto refill. Symbicort 160 mcg-4.5 mcg/actuation HFA aerosol inhaler RxNorm: 6506131 2 Puff(s) INH BID No Stop Date Active Alcohol Prep Pads RxNorm: 544447 1 Patch TOP QAM 019 2019 Inactive Ventolin HFA 90 mcg/actuation aerosol inhaler RxNorm: 161054 2 Puff(s) INH QID 2019 Inactive Please do not fill early. Please do not auto refill. This refill negates all other refills of this medication True Metrix Glucose Test Strip RxNorm: 1 Test Strips Miscellaneous QAM 019 2019 Inactive 100/container atorvastatin 40 mg tablet RxNorm: 179130 1 Tablet(s) Oral every day 019 2019 Inactive buspirone 7.5 mg tablet RxNorm: 280096 1 Tablet(s) PO BID 019 2020 Inactive This refill negates all other refills of this medication hydrochlorothiazide 12.5 mg tablet RxNorm: 427665 1 Tablet(s) PO QAM 019 2019 Inactive levmetamfetamine 50 mg nasal inhaler RxNorm: 1 Unit(s) NASAL Q3-4H Do not use more than every 3 hours or 8 times/24hours 019 2021 Inactive Please do not auto refill. This refill negates all other refills of this medication Ventolin HFA 90 mcg/actuation aerosol inhaler RxNorm: 159514 2 Puff(s) INH QID 019 2018 Inactive Please do not fill early. Please do not auto refill. This refill negates all other refills of this medication Singulair 10 mg tablet RxNorm: 859709 1 Tablet(s) PO daily 019 2019 Inactive This refill negates all other refills of this medication cetirizine 10 mg tablet RxNorm: 0432181 1 Tablet(s) PO daily 019 2019 Inactive This refill negates all other refills of this medication. Please do not auto refill levothyroxine 50 mcg tablet RxNorm: 541138 1 Tablet(s) PO daily 019 2019 Inactive This refill negates all other refills of this medication diclofenac sodium 75 mg tablet,delayed release RxNorm: 492061 1 Tablet(s) PO BID 019 2019 Inactive This refill negates all other refills of this medication ranitidine 150 mg tablet RxNorm: 279195 1 Tablet(s) PO BID 019 2018 Inactive This refill negates all other refills of this medication Calcium 600-D3 Plus (mag-zinc) 600 mg calcium-800 unit-50 mg tablet RxNorm: 1 Tablet(s) PO daily take an additonal tablet for itching. 019 2018 Inactive This refill negates all other refills of this medication albuterol sulfate 2.5 mg/3 mL (0.083 %) solution for nebulization RxNorm: 487305 1 Vial INH QID 019 2018 Inactive 60/box. This refill negates all other refills of this medication. Please do not fill early. Please do not auto refill. lisinopril 2.5 mg tablet RxNorm: 107948 1 Tablet(s) PO daily 019 2019 Inactive gabapentin 300 mg capsule RxNorm: 877618 1 Capsule(s) PO TID 019 2019 Inactive atorvastatin 20 mg tablet RxNorm: 218448 1 Tablet(s) PO QHS 019 2018 Inactive This refill negates all other refills of this medication TRUEplus Lancets 30 gauge RxNorm: 1 Lancets Miscellaneous QAM 2018 Inactive 100/box gabapentin 300 mg capsule RxNorm: 508347 1 Capsule(s) PO TID 019 2018 Inactive Flintstones Complete (iron) 18 mg iron chewable tablet RxNorm: 1 Tablet(s) PO daily 2021 Inactive This refill negates all other refills of this medication gabapentin 300 mg capsule RxNorm: 297013 1 Capsule(s) PO TID as needed 2018 Inactive True Metrix Glucose Test Strip RxNorm: 1 Test Strips Miscellaneous QAM 019 2018 Inactive 100/container Alcohol Prep Pads RxNorm: 974661 1 Patch TOP QA 2018 Inactive TRUEplus Lancets 30 gauge RxNorm: 1 Lancets Miscellaneous QAM 019 2018 Inactive 100/box lisinopril 2.5 mg tablet RxNorm: 736651 1 Tablet(s) PO daily 2018 Inactive ranitidine 150 mg tablet RxNorm: 730076 1 Tablet(s) PO BID 2018 Inactive This refill negates all other refills of this medication albuterol sulfate 2.5 mg/3 mL (0.083 %) solution for nebulization RxNorm: 266714 1 Vial INH QID 019 2018 Inactive [...] this medication gabapentin 300 mg capsule RxNorm: 145122 1 Capsule(s) PO TID as needed 019 2018 Inactive atorvastatin 20 mg tablet RxNorm: 748641 1 Tablet(s) PO QHS 019 2018 Inactive This refill negates all other refills of this medication trazodone 50 mg tablet RxNorm: 685992 1 Tablet(s) PO QHS 019 2018 Inactive This refill negates all other refills of this medication Ventolin HFA 90 mcg/actuation aerosol inhaler RxNorm: 865539 2 Puff(s) INH QID 019 2018 Inactive Please do not fill early. Please do not auto refill. This refill negates all other refills of this medication Calcium 600-D3 Plus 600 mg calcium-800 unit-50 mg tablet RxNorm: 1 Tablet(s) PO daily take an additonal tablet for itching. 019 2018 Inactive This refill negates all other refills of this medication Singulair 10 mg tablet RxNorm: 884981 1 Tablet(s) PO daily 019 2018 Inactive This refill negates all other refills of this medication buspirone 7.5 mg tablet RxNorm: 724291 1 Tablet(s) PO BID 019 2018 Inactive This refill negates all other refills of this medication diclofenac sodium 75 mg tablet,delayed release RxNorm: 996791 1 Tablet(s) PO BID 019 2018 Inactive This refill negates all other refills of this medication hydrochlorothiazide 12.5 mg tablet RxNorm: 577095 1 Tablet(s) PO QAM 019 2018 Inactive metoprolol succinate ER 50 mg tablet,extended release 24 hr RxNorm: 517046 1 Tablet(s) PO daily 2018 Inactive This refill negates all other refills of this medication levothyroxine 50 mcg tablet RxNorm: 066638 1 Tablet(s) PO daily 019 2018 Inactive This refill negates all other refills of this medication cetirizine 10 mg tablet RxNorm: 1188133 1 Tablet(s) PO daily 019 2018 Inactive This refill negates all other refills of this medication. Please do not auto refill Flintstones Complete (iron) 18 mg iron chewable tablet RxNorm: 1 Tablet(s) PO daily 019 2018 Inactive This refill negates all other refills of this medication buspirone 7.5 mg tablet RxNorm: 184929 1 Tablet(s) PO BID 2018 Inactive cetirizine 10 mg tablet RxNorm: 5851552 1 Tablet(s) PO daily 2018 Inactive Guaiasorb DM 10 mg-100 mg/5 mL oral liquid RxNorm: 945944 10 Milliliter(s) PO As needed every 4 hr 2018 Inactive Vicks Vaporub 4.7 %-1.2 %-2.6 % topical ointment RxNorm: 3030562 1 Application TOP TID 2018 Inactive levmetamfetamine 50 mg nasal inhaler RxNorm: 1 Unit(s) NASAL Q3-4H 2017 Inactive sertraline 50 mg tablet RxNorm: 834439 1 Tablet(s) PO daily 2018 Inactive Please note dose trazodone 50 mg tablet RxNorm: 662656 1 Tablet(s) PO QHS 2018 Inactive sertraline 50 mg tablet RxNorm: 910803 1 Tablet(s) PO daily 018 2017 Inactive amoxicillin 500 mg tablet RxNorm: 686292 1 Tablet(s) PO Q12H 2017 Inactive albuterol sulfate 2.5 mg/3 mL (0.083 %) solution for nebulization RxNorm: 577388 1 Vial INH QID 018 2018 Inactive 60/box. Please do not fill early. Please do not auto refill. Prozac 10 mg capsule RxNorm: 505996 1 Capsule(s) PO daily 018 2017 Inactive buspirone 7.5 mg tablet RxNorm: 808618 1 Tablet(s) PO BID 018 2018 Inactive gabapentin 300 mg capsule RxNorm: 957043 1 Capsule(s) PO TID as needed 2018 Inactive hydrochlorothiazide 12.5 mg tablet RxNorm: 741440 1 Tablet(s) PO QAM 018 2018 Inactive ranitidine 150 mg tablet RxNorm: 922591 1 Tablet(s) PO BID 018 2018 Inactive Macrobid 100 mg capsule RxNorm: 661612 1 Capsule(s) PO Q12H 018 2017 Inactive Singulair 10 mg tablet RxNorm: 001671 1 Tablet(s) PO daily 018 2018 Inactive Ventolin HFA 90 mcg/actuation aerosol inhaler RxNorm: 4829384 2 Puff(s) INH QID 018 2018 Inactive Singulair 10 mg tablet RxNorm: 679563 1 Tablet(s) PO daily 018 2017 Inactive buspirone 7.5 mg tablet RxNorm: 237270 1 Tablet(s) PO BID 018 2017 Inactive Prozac 10 mg capsule RxNorm: 872554 1 Capsule(s) PO daily 018 2017 Inactive diclofenac sodium 75 mg tablet,delayed release RxNorm: 796079 1 Tablet(s) PO BID 018 2017 Inactive lisinopril 2.5 mg tablet RxNorm: 587981 1 Tablet(s) PO daily 018 2017 Inactive Neilmed Pediatric Sinus Rinse Refill packet RxNorm: 1 Unit Dose NASAL PRN 018 2021 Inactive metoprolol succinate ER 50 mg tablet,extended release 24 hr RxNorm: 348677 1 Tablet(s) PO daily 018 2017 Inactive levothyroxine 50 mcg tablet RxNorm: 927408 1 Tablet(s) PO daily 018 2017 Inactive TRUEplus Lancets 30 gauge RxNorm: 1 Lancets Miscellaneous QAM 018 2017 Inactive 100/box Ventolin HFA 90 mcg/actuation aerosol inhaler RxNorm: 591786 2 Puff(s) INH QID 018 2017 Inactive Aleve 220 mg capsule RxNorm: 5789859 1 Capsule(s) PO BID 018 2018 Inactive ranitidine 150 mg tablet RxNorm: 466371 1 Tablet(s) PO BID 018 2017 Inactive gabapentin 300 mg capsule RxNorm: 769741 1 Capsule(s) PO TID as needed 018 2017 Inactive atorvastatin 20 mg tablet RxNorm: 026570 1 Tablet(s) PO QHS 018 2017 Inactive True Metrix Glucose Test Strip RxNorm: 1 Test Strips Miscellaneous [facility] 018 2017 Inactive 50/container Calcium 600-D3 Plus 600 mg calcium-800 unit-50 mg tablet RxNorm: 1 Tablet(s) PO daily take an additonal tablet for itching. 018 2017 Inactive hydrochlorothiazide 12.5 mg tablet RxNorm: 702559 1 Tablet(s) PO QAM 018 2017 Inactive Flintstones Complete (iron) 18 mg iron chewable tablet RxNorm: 1 Tablet(s) PO daily 018 2017 Inactive True Metrix Glucose Meter RxNorm: miscellaneous 019 2018 Inactive sertraline 50 mg tablet RxNorm: 721946 1 Tablet(s) PO daily 020 2019 Inactive loperamide 2 mg tablet RxNorm: 149889 oral 019 2018 Inactive d-mannose oral powder RxNorm: PO 018 2021 Inactive Symbicort 160 mcg-4.5 mcg/actuation HFA aerosol inhaler RxNorm: 4560029 2 Puff(s) INH BID 019 2018 Inactive [...] Or the opposite?/0 = Not at all, Thoughtsthat you would be better off , or of hurting yourself in some way?/0 = Not at all, Score:/0-4 =Negative for depression- NO PLAN NEEDEDCPT-4: VFRWXbeamyd70/21/2023 Pain ScreeningCPT-4: [id number] Assessment/ScreeningCPT-4: TCA 2022HypertensionCPT-4: HTN08/17/2022emmes Fany AssessmentCPT-4: DSWA 04/19/2022atient Health QuestionnaireCPT-4: DPHQ04/19/2022nnual Wellness Visit (Subsequent Visit)CPT-4: [id number]/atient Health QuestionnaireCPT-4: DPHQ 10/07/2021Frailty ScreeningCPT-4: SFD05/20/2021HypertensionCPT-4: HTN04/01/2021 Tobacco Assessment/ScreeningCPT-4: TCA03/13/2021atient Health QuestionnaireCPT- 4: DPHQ03/13/2021Mini Mental State ExamCPT-4: DMMA01/29/2021nnual Wellness Visit (Subsequent Visit)CPT-4: J907900dvanced Care PlanningCPT-4: VACP 01/13/2021Fall Risk AssessmentSNOMED CT: 859439487 CPT-4: DFRA01/13/2021emmes Fany AssessmentCPT-4: DSWA12/17/2020Urinalysis, dip stickCPT-4: 484118109/24/2020Patient Health QuestionnaireCPT-4: DPHQ 08/19/2020ElectrocardiogramCPT-4: 9727278Tobacco Assessment/Screening CPT-4: TCA01/01/2020Fall Risk AssessmentSNOMED CT: 443560957 CPT-4: DFRA01/01/2020Functional AssessmentCPT-4: DFA01/01/2020Semmes Fany AssessmentCPT-4: DSWA11/28/2019Patient Health QuestionnaireCPT-4: DPHQ11/28/2019 [place] Fany AssessmentCPT-4: DSWA10/17/2019HypertensionCPT-4: HTN10/17/[address]: 933477655 CPT-4: DFRA09/19/2019Functional AssessmentCPT-4: DFA111/20/2018Urinalysis, dip stickCPT-4: 1193259Tobacco Assessment/ScreeningCPT-4: TCA05/24/2019 Patient Health QuestionnaireCPT-4: DPHQ05/24/2019AHA/REBECCA Classification AssessmentCPT-4: DAHA04/25/2019Controlled Substance ReportCPT-4: CTRSU04/25/2019 Urinalysis, dip stickCPT-4: 2675775Urinalysis, dip stickCPT-4: 73992 03/28/20190042L8E-YypbygchjrjoamjXMO-8: 97290QyqemytK8T-WtplxhinruncupmQWW-7: 04590 YbktvwiR3C-HnuiyymozdgburfNJV-3: 17688NwwbduhL8A-PeqnisklzvgwotbPHZ-4: 60175 ClerancT2Y-ErwxedqjmoyfjibWRS-4: 16080QlegnwcJ9U-GnjdjvfotbmkbxvDAA-1: 85751 QwhjezfK6P-MqkxcdxvdozesnsFHB-2: 70885CojshngB1K-AybppsrqxpiizphBVJ-5: 60559 QgcwzdqO7I-ChgyacuybwcanifBPE-5: 44063BwpendcZ0C-YrtknjjwdglhudaXEB-6: 21353 TjaoglyX4Q-FsfrhcfjpkergxmBZB-7: 62618CrbfnzzLksaxcfmpm [facility]: 640855647 CPT-4: J92Tiifzhl Vital Signs Date Vital 11/23/2022 Blood Pressure 1: 100/68 Code: 8480-6 BMI: 54.7 Code: 85141-9 Heart Rate 1: 80 bpm Height: 4'11 Code: 8302-2 Respiratory Rate: 16 bpm SpO2: 98% Temperature: 36.3 (C) / 97.3 (F) Weight: 270 lbs 12 oz Code: 88424-1 Reason For Visit Reason For Visit Effective Dates Notes gastroesophageal reflux disease 11/23/2022 diabetes mellitus 11/23/2022 hypertension 11/23/2022 depression 11/23/2022 Interim health update 11/23/2022 Encounters Encounter Performer Location Location Address Codes Magdi e ([id number]) Home or Residence Vi sit Est Pt - Moderate Level, 40 mins Diagnosis: GERD (gastroesophageal reflux disease)[ICD10: K21.9] Diagnosis: Type 2 diabetes mellitus with peripheral neuropathy[ICD10: E11.42] Diagnosis: Hypertensive heart disease[ICD10: I11.9] Diagnosis: Major depression, recurrent[ICD10: F33.9]Anna Bourgeois [id number] [place] [address] 09551MOR-8: 09736 11/23/2022 Plan of Care Planned Activity Notes Codes [...] min. < 89% SpO2 continue with [facility] Windows Systems Engineer Josh Simon MD G47.33 Obstructive sleep apnea (adult), J45.909 Asthma breathing stable, continue utilization of Symbicort, albuterol via neb. or MDI q 4 hrs. prn dyspnea, CPAP use continues nightly continue with Remote Sensing Specialist Jose BOWMAN K21.9 GERD (gastroesophageal reflux disease) worsening symptoms, will increase omeprazole to 40mg at HS, continue famotidine, probiotic discuss food triggers advised to call for persistent or worsening symptoms E11.42 Type 2 diabetes mellitus with peripheral neuropathy, Z68.43 Adult BMI 50.0-59.9 kg/sq m stable glucose monitor - testing bid random episode of 400, biotel meter On demand supplies strips and lancets RBS 137 per patient meter, had pancake and syrup for breakfast continue Ozempic 1mg per week and gabapentin continue with Kerrie Pandya OD at [facility] (06/30/21) F33.9-296.30 Major depression, recurrent 11/23/2021 PHQ 9 Score 0 continue taking sertraline, buspirone Rexulti continue with [facility] in [place] canceled visit this month, next December 2021 E78.2 Hyperlipidemia, mixed patient has re-started atorvastatin continue Mediterranean style eating E03.9 Hypothyroidism 06/23/2022 TSH 2.130, continue levothyroxine E55.9 Vitamin D deficiency continue cholecalciferol R55 Syncope and collapse, Z84.89 Family history of seizures continue with [facility]ist N39.46 Mixed incontinence, R33.9 Urinary retention with incomplete bladder emptying Z98.890-V45.89 History of bladder surgery continue Myrbetriq qd ongoing use of use of incontinence supplies 01/05/21 urinary stimulator implant continue with Urologist 11/23/2022atient Education: OpbuiilqbtHxtxflczl05/21/2023Patient Education: NeunepguQkhrzbwgv37/21/2023Patient Education: Patient Medication Summary Urzcborub00/21/2023Patient Education: NtxbhsgpyvkgRchywhhyf60/21/2023atient Education: ZzrybalMjzlswhqm98/21/2023ppointment: Anna Culver WPtel: [phone] [place] [address] [id number]: Anna Culver WPtel: [address] [place] [address] [id number]/17/2021ppointment: Anna Culver WPtel: [phone] [place] [address] [id number]: Chivo Bishop WPtel: [address] [place] [address] [id number]: Chivo Bishop WPtel: [address] [place] [address] [id number]: Mikey Nair WPtel: [facility] [id number]: Chivo Bishop WPtel: [address] [place] [address] [id number]: Chivo Bishop WPtel: [address] [place] [address] [id number]: Chivo Bishop WPtel: [address] [place] [address] USETV111/11/2020ppointment: Chivo Bishop WPtel: [address] [place] [address] USETV110/13/2020ppointment: Chivo Bishop WPtel: [address] [place] [address] USETV10/ppointment: Chivo Bishop WPtel: [phone] [place] [address] [place] [address] [id number]/10/2021ppointment: Anna Culver WPtel: [phone] [place] [address] USETV06/02/2021ppointment: Chivo Bishop WPtel: [phone] [place] [address] [place] [address] USETV05/20/2021ppointment: Anna Culver WPtel: [phone] [place] [address] USETV04/28/2021ppointment: Chivo Bishop WPtel: [address] [place] [address] USETV04/15/2021ppointment: Anna Culver WPtel: [phone] [place] [address] [place] [address] [id number]: Anna Culver WPtel: [address] [place] [address] [place] [address] USETV03/24/2021ppointment: Anna Culver WPtel: [address] [place] [address] USETV03/13/2021ppointment: Anna Culver WPtel: [phone] [place] [address] [place] [address] [id number]: Chivo Bishop WPtel: [phone] [place] [address] [id number]: Anna Culver WPtel: [phone] [place] [address] USETV01/13/2021ppointment: Anna Culver WPtel: [phone] [place] [address] [id number]: Chivo Bishop WPtel: [phone] [place] [address] USETV11/28/2020ppointment: Anna Culver WPtel: [phone] [place] [address] USETV11/24/2020ppointment: Anna Culver WPtel: [phone] [place] [address] [id number]: Anna Culver WPtel: [address] [place] [address] [id number]/25/2019Appointment: Anna Culver WPtel: [address] [place] [address] USETV110/26/2019Appointment: Anna Culver WPtel: [address] [place] [address] USETV110/19/2019Appointment: Anna Culver WPtel: [address] [place] [address] USETV1Appointment: Anna Culver WPtel: [address] [place] [address] USETV1Appointment: Gianna Birmingham [facility]: [address] [facility] [address] [id number]: Anna Culver WPtel: [address] [place] [address] [id number]: Anna Culver WPtel: [address] [place] [address] [place] [address] [id number]: Anna Culver WPtel: [phone] [place] [address] [id number]: Anna Culver WPtel: [phone] [place] [address] [id number]: Anna Culver WPtel: [address] [place] [address] [id number]: Anna Culver WPtel: [address] [place] [address] [id number]: Anna Culver WPtel: [address] [place] [address] [id number]: Anna Culver WPtel: [address] [place] [address] [id number]: Anna Culver WPtel: [address] [place] [address] [id number]: Anna Culver WPtel: [address] [place] [address] [id number]/20/2018Appointment: Sudha Hernadez WPtel: [facility] [id number]: Sudha Hernadez WPtel: [address] [facility] [id number]: Charlene Oropeza WPtel: [address] [facility] [id number]: Enedelia Delgado45Appointment: Charlene Oropeza WPtel: [address] [facility] b RdguwiPC76634 [id number]: Rasta Palafox WPtel: [address] [facility] NtbxpoDF21273 [id number]: Rasta Palafox WPtel: [address] [facility] [id number]: Rasta Palafox WPtel: [address] [facility] EuveqgUV08669 [id number]: Rasta Palafox WPtel: [address] [facility] [id number]: Pending Gynecology Referral InformationReferral ProcessedReferral: Pending Pulmonology Referral InformationReferralProcessed Referral: Pending Psychiatry Referral InformationReferralInitiatedReferral: Pending Respiratory Services Referral InformationReferralInitiatedReferral: Pending Ophthalmology Referral InformationReferralInitiatedReferral: [facility] WPtel: [address] USWriter placed a call out to the patient to notify her that it has been recommended that she be seenby a urologist. Patient agreed to be seen, does not have a provider of choice and no transportationissues. Medical Center Manager faxed referral and clinical notes to [facility] in [place], [place] near the patient's home. Patient to [...] seen and prefers a provider in the [place] or [place] area. Medical Center Manager placed a call out to everyone listed in the area and the only location that was able to accept the patient's insurance was [facility] [address] [place] [address] and spoke with Maylin. Maylin asked that the patient's referral, face sheet and visit notes be faxed to . Medical Center Manager faxed over requested documents. Patient appointment confirmation letter generated and mailed to her home address. Patient to call to schedule an appointment.ProcessedReferral: [facility] WPtel: [address] [facility] [address] [id number] USPatient notified that it has been advised that she be seen by Neurology. Patient agreed to be seen and prefers to be seen by a provider in the [place], [place] area. Patient denies any concerns with transportation, and prefers to schedule her own appointment. Medical Center Manager placed a call out to [facility] and spoke with Neeraj Mcfarland: [...] min. < 89% SpO2; continue with [facility] Windows Systems Engineer Josh Simon MD; G47.33 Obstructive sleep apnea (adult), J45.909 Asthma breathing stable, continue utilization of Symbicort, albuterol via neb. or MDI q 4 hrs. prn dyspnea, CPAP use continues nightly continue with Remote Sensing Specialist Jose BOWMAN; K21.9 GERD (gastroesophageal reflux disease) worsening symptoms, will increase omeprazole to 40mg at HS, continue famotidine, probiotic; discuss food triggers advised to call for persistent or worsening symptoms E11.42 Type 2 diabetes mellitus with peripheral neuropathy, Z68.43 Adult BMI 50.0-59.9 kg/sq m stable glucose monitor - testing bid; random episode of 400, biotel meter On demand supplies strips and lancets RBS 137 per patient meter, had pancake and syrup for breakfast continue Ozempic 1mg per week and gabapentin; continue with Kerrie Pandya OD at [facility] (06/30/21); F33.9-296.30 Major depression, recurrent 11/23/2021 PHQ 9 Score 0 continue taking sertraline, buspirone; Rexulti continue with [facility] in [place]; canceled visit this month, next December 2021 E78.2 Hyperlipidemia, mixed patient has re-started atorvastatin continue Mediterranean style eating; E03.9 Hypothyroidism 06/23/2022 TSH 2.130, continue levothyroxine; E55.9 Vitamin D deficiency continue cholecalciferol; R55 Syncope and collapse, Z84.89 Family history of seizures continue with [facility] Neu[facility]ist N39.46 Mixed incontinence, R33.9 Urinary retention with incomplete bladder emptying; Z98.890-V45.89History of bladder surgery continue Myrbetriq qd; ongoing use of use of incontinence supplies; 01/05/21 urinary stimulator implant continue with Urologist; 11/23/2022 Medical Equipment No Medical Equipment data Advance Directives No Advance Directive data
--- OUTSIDE RECORDS SUMMARY | 2023-12-07 02:22 | XMS_ITS | CCD ---
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 Name Role Phone Palomo KING, Anna Primary Care Provider Unav ailable Unavailable Chronic Care Management Unavaila ble Summary Purpose DataExchange Insurance Providers Payer name Policy type / Coverage type Covered democrat ID Effective Begin Date Effective End Date [facility] [id number] Unknown Unknown Family history Mother Diagnosis Age [...] 05/31/2018 Education level Unknown Some High School 10th05/31/20180086VazyyrxagvEgchlylPrjuiqknze62/29/2018Tobacco historySNOMED CT: 071960568Gzl never smoked or chewed vveiyop6805/31/2018Alcohol historySNOMED CT: 603382028Lnhhk drinks qxohzdh7605/31/2018Has the patient ever used illegal drugs? UnknownHas never used illegal drugs05/31/2018DNR Order/ Advanced Directive UnknownFull Code05/31/2018 Allergies, Adverse Reactions, Alerts Substance Reaction Codes Entered Date Inactivated Date Status OxyContin itch, RxNorm: 414302 01/13/2021 No Inactive Da te Active *No known food allergies Kqucyrw6709/06/2018No Inactive DateActiveMethylprednisolonehivesRxNorm: 6902 09/06/2018No Inactive DateActive Problems [...] examinationICD-10: Z01.810 ICD-9: V72.8106InactiveHeadacheICD-10: R51 ICD-9: 784.001/10/2018InactiveOther bottom wheeler (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ICD-10: Z79.899 ICD-9: V58.6907InactiveType 2 diabetes mellitus without complications ICD-10: E11.9 ICD-9: 250.0001/10/2018InactiveWheezingICD-10: R06.2 ICD-9: 786.0711InactiveAbnormal urine findingICD-10: R82.90 ICD-9: 791.912/ResolvedAbrasion of toeICD-10: S90.416A ICD-9: 917.005/ResolvedPink eyeICD-10: H10.029 ICD-9: 372.0303ResolvedRight wrist painICD-10: M25.531 ICD-9: 719.4308/09/2020ResolvedSinusitisICD-10: J32.9 ICD-9: 473.902/02/2020ResolvedSuperficial burn of multiple sites of right hand, subsequent encounterICD-10: T23.191D ICD-9: V58.8902/esolvedUrinary tract infectionICD-10: N39.0 ICD-9: 599.012ResolvedPolyneuropathy, unspecifiedICD-10: G62.9 ICD-9: 356.908ActiveFecal incontinenceICD-10: R15.9 ICD-9: 787.6003ActiveMixed incontinenceICD-10: N39.46 ICD-9: 788.3308ActiveAbnormal electrocardiogram [ECG] [EKG]ICD-10: R94.31 ICD-9: 794.3108Active Medications Medication Codes Instructions Start Date Stop Date Status Fill Instructions omeprazole 20 mg capsule,delayed release RxNorm: 452166 Take 1 Capsule(s) Oral every evening 022 2022 Inactive Alcohol Prep Pads RxNorm: 965012 USE EACH MORNING 12/112021 Inactive E11.42 clotrimazole 1 % topical cream RxNorm: 869641 Apply 1 Application Topical two times a day as needed apply to affected area(s) twice daily until healed 2021 Inactive Victoza 2-Sebastián 0.6 mg/0.1 mL (18 mg/3 mL) subcutaneous pen injector RxNorm: 346851 Inject 0.6-1.8 Milligram(s) Subcutaneous once a week Inject 0.6mg/0.1ml week one, 1.2mg/0.2ml week two, 1.8/0.3ml weekly thereafter 2021 Inactive ibuprofen 800 mg tablet RxNorm: 204650 Take 1 Tablet(s) Oral Q8H as needed for pain take with food No Stop Date Active Ozempic 1 mg/dose (4 mg/3 mL) subcutaneous pen injector RxNorm: 9806451 Take 1 Unit Dose Subcutaneous QWeek Tuesday2021 Inactive lisinopril 2.5 mg tablet RxNorm: 530459 Take 1 Tablet(s) Oral every day 2021 Inactive lisinopril 2.5 mg tablet RxNorm: 253637 Take 1 Tablet(s) Oral every day 022 2022 Inactive hydrochlorothiazide 25 mg tablet RxNorm: 073484 Take 1 Tablet(s) Oral every day 022 2021 Inactive Ozempic 1 mg/dose (4 mg/3 mL) subcutaneous pen injector RxNorm: 7340062 Take 1 Unit Dose Subcutaneous QWeek 022 2021 Inactive famotidine 20 mg tablet RxNorm: 049782 Take 1 Tablet(s) Oral every morning 2021 Inactive levothyroxine 50 mcg tablet RxNorm: 957148 Take 1 Tablet(s) Oral every day 022 2021 Inactive atorvastatin 20 mg tablet RxNorm: 886073 Take 1 Tablet(s) Oral every night at bedtime 2021 Inactive Cleocin T 1 % lotion RxNorm: 771473 Take 2 Gram(s) Topical every day 022 2021 Inactive Cleocin T 1 % lotion RxNorm: 656192 Take 2 Gram(s) Topical every day 022 2021 Inactive Ozempic 1 mg/dose (4 mg/3 mL) subcutaneous pen injector RxNorm: 0220949 Take 1 Unit Dose Subcutaneous QWeek 022 2021 Inactive Ozempic 0.25 mg or 0.5 mg (2 mg/1.5 mL) subcutaneous pen injector RxNorm: 2451330 INJECT 0.5 MGS SUBCUTANEOUSLY EVERY WEEK 2021 Inactive omeprazole 20 mg capsule,delayed release RxNorm: 531256 Take 1 Capsule(s) Oral every evening 2021 Inactive levothyroxine 50 mcg tablet RxNorm: 480195 Take 1 Tablet(s) Oral every day 022 2021 Inactive atorvastatin 20 mg tablet RxNorm: 084160 Take 1 Tablet(s) Oral every night at bedtime 2021 Inactive This refill negates all other refills of this medication lisinopril 2.5 mg tablet RxNorm: 866064 Take 1 Tablet(s) Oral every day 2021 Inactive gabapentin 300 mg capsule RxNorm: 442831 Take 1 Capsule(s) Oral three times a day 2021 Inactive montelukast 10 mg tablet RxNorm: 104391 Take 1 Tablet(s) Oral every day 2021 Inactive cholecalciferol (vitamin D3) 50 mcg (2,000 unit) tablet RxNorm: 349420 Take 1 Tablet(s) Oral every day 022 2022 Inactive Myrbetriq 50 mg tablet,extended release RxNorm: 2616748 1 Tablet(s) Oral every day No Stop Date Active Ozempic 0.25 mg or 0.5 mg (2 mg/1.5 mL) subcutaneous pen injector RxNorm: 1940998 inject 0.5 milligrams subcutaneously every week 2021 Inactive Ozempic 0.25 mg or 0.5 mg (2 mg/1.5 mL) subcutaneous pen injector RxNorm: 4482073 Take 0.5 Capsule(s) Injection once a week 2021 Inactive omeprazole 20 mg capsule,delayed release RxNorm: 183188 Take 1 Capsule(s) Oral every evening 2020 Inactive Ozempic 0.25 mg or 0.5 mg (2 mg/1.5 mL) subcutaneous pen injector RxNorm: 2212913 Take 0.25 Milligram(s) Subcutaneous once a week 2021 Inactive Easy Touch Alcohol Prep Pads RxNorm: 159688 USE DIRECTED EACH MORNING 2021 Inactive Probiotic 10 billion cell capsule RxNorm: 5540951 Take 1 Capsule(s) Oral every day 2021 Inactive levothyroxine 50 mcg tablet RxNorm: 973927 Take 1 Tablet(s) Oral every day 2020 Inactive Acid Marble Rubber (famotidine) 20 mg tablet RxNorm: 417070 Take 1 Tablet(s) Oral every morning 2020 Inactive Heartburn Relief (famotidine) 10 mg tablet RxNorm: 403526 Take 1 Tablet(s) Oral QAM 2020 Inactive levothyroxine 50 mcg tablet RxNorm: 216677 Take 1 Tablet(s) Oral QD 2020 Inactive Singulair 10 mg tablet RxNorm: 038638 TAKE (1) TABLET BY MOUTH DAILY 2020 Inactive metformin 1,000 mg tablet RxNorm: 630287 1 Tablet(s) Oral two times a day 2021 Inactive lisinopril 2.5 mg tablet RxNorm: 723206 Take 1 Tablet(s) Oral every day 021 2020 Inactive hydrochlorothiazide 25 mg tablet RxNorm: 869004 Take 1 Tablet(s) Oral every day 021 2020 Inactive ondansetron 4 mg disintegrating tablet RxNorm: 299632 1 Tablet(s) Oral two times a day 021 2020 Inactive Sudafed 12 Hour 120 mg tablet,extended release RxNorm: 6284240 TAKE 1 TABLET BY MOUTH EVERY 12 HOURS NEEDED 021 2021 Inactive Heartburn Relief (famotidine) 10 mg tablet RxNorm: 337790 Take 1 Tablet(s) Oral every morning 021 2020 Inactive omeprazole 20 mg capsule,delayed release RxNorm: 575806 1 Capsule(s) Oral every evening 021 2020 Inactive sertraline 100 mg tablet RxNorm: 536527 2 Tablet(s) Oral every day 021 2020 Inactive levothyroxine 50 mcg tablet RxNorm: 321299 TAKE (1) TABLET BY MOUTH DAILY 021 2020 Inactive metformin 500 mg tablet RxNorm: 209783 1 Tablet(s) Oral two times a day take with 500mg to equal 1000mg 021 2020 Inactive gabapentin 300 mg capsule RxNorm: 228996 TAKE 1 CAPSULE BY MOUTH THREE TIMES A DAY 021 2020 Inactive lisinopril 2.5 mg tablet RxNorm: 024386 TAKE 1 TABLET BY MOUTH DAILY 021 2020 Inactive gabapentin 300 mg capsule RxNorm: 958034 TAKE 1 CAPSULE BY MOUTH THREE TIMES A DAY 021 2020 Inactive Singulair 10 mg tablet RxNorm: 591149 TAKE (1) TABLET BY MOUTH DAILY 021 2020 Inactive metformin 1,000 mg tablet RxNorm: 535224 1 Tablet(s) Oral two times a day 021 2020 Inactive atorvastatin 40 mg tablet RxNorm: 892066 1 Tablet(s) Oral every day 2020 Inactive omeprazole 20 mg capsule,delayed release RxNorm: 169519 1 Capsule(s) Oral every evening 2020 Inactive famotidine 10 mg tablet RxNorm: 842721 1 Tablet(s) Oral every morning 2020 Inactive Alcohol Prep Pads RxNorm: 085331 USE EACH MORNING 2020 Inactive omeprazole 20 mg capsule,delayed release RxNorm: 174908 1 Capsule(s) Oral two times a day 2021 Inactive omeprazole 20 mg capsule,delayed release RxNorm: 038765 TAKE 1 CAPSULE BY MOUTH EVERY DAY 2021 Inactive Macrobid 100 mg capsule RxNorm: 254403 1 Capsule(s) Oral every 12 hours with food 2020 Inactive omeprazole 20 mg capsule,delayed release RxNorm: 720248 1 Capsule(s) Oral two times a day 2021 Inactive metformin 1,000 mg tablet RxNorm: 230209 1 Tablet(s) Oral two times a day 2020 Inactive start on September 11, 2020 metformin 500 mg tablet RxNorm: 623898 1 Tablet(s) Oral two times a day take with 500mg to equal 1000mg 2019 Inactive gabapentin 300 mg capsule RxNorm: 096215 TAKE 1 CAPSULE BY MOUTH THREE TIMES DAILY 2020 Inactive cetirizine 10 mg tablet RxNorm: 2625579 TAKE (1) TABLET BY MOUTH DAILY 2020 Inactive metformin 500 mg tablet RxNorm: 352802 1 Tablet(s) Oral two times a day 2019 Inactive loperamide 2 mg tablet RxNorm: 488873 1 Tablet(s) Oral as needed take one tablet after each loose stool, maximum of 8 tablets in 24 hours 2021 Inactive Sudafed 12 Hour 120 mg tablet,extended release RxNorm: 2322199 TAKE 1 TABLET BY MOUTH EVERY 12 HOURS NEEDED 020 2019 Inactive hydrochlorothiazide 25 mg tablet RxNorm: 630037 TAKE (1) TABLET BY MOUTH EVERY DAY 020 2019 Inactive omeprazole 20 mg capsule,delayed release RxNorm: 329666 TAKE 1 CAPSULE BY MOUTH EVERY DAY 020 2020 Inactive metformin 500 mg tablet RxNorm: 954486 1 Tablet(s) Oral every day 020 2019 Inactive True Metrix Glucose Test Strip RxNorm: 1 Test Strips Miscellaneous two times a day as needed No Stop Date Active metformin 500 mg tablet RxNorm: 931053 1 Tablet(s) Oral every day 020 2019 Inactive diclofenac sodium 75 mg tablet,delayed release RxNorm: 200203 1 Tablet(s) PO BID 2021 Inactive This refill negates all other refills of this medication Sudafed 12 Hour 120 mg tablet,extended release RxNorm: 7146219 TAKE 1 TABLET BY MOUTH EVERY 12 HOURS NEEDED 020 2019 Inactive True Metrix Glucose Test Strip RxNorm: 1 Test Strips Miscellaneous every morning 020 2019 Inactive 100/container True Metrix Glucose Test Strip RxNorm: 1 Test Strips Miscellaneous QA 020 2019 Inactive 100/container loperamide 2 mg tablet RxNorm: 448727 1 Tablet(s) Oral as needed take one tablet after each loose stool, maximum of 8 tablets in 24 hours 020 2019 Inactive cetirizine 10 mg tablet RxNorm: 6481992 1 Tablet(s) PO daily 020 2019 Inactive loperamide 2 mg tablet RxNorm: 531945 1 Tablet(s) Oral as needed take one tablet after each loose stool, maximum of 8 tablets in 24 hours 020 2019 Inactive quetiapine 100 mg tablet RxNorm: 231157 1 Tablet(s) Oral every night at bedtime 2019 Inactive levothyroxine 50 mcg tablet RxNorm: 322467 1 Tablet(s) PO daily 020 2020 Inactive gabapentin 300 mg capsule RxNorm: 782886 1 Capsule(s) PO TID 2019 Inactive levothyroxine 50 mcg tablet RxNorm: 524331 1 Tablet(s) PO daily 2019 Inactive lisinopril 2.5 mg tablet RxNorm: 030161 1 Tablet(s) PO daily 2020 Inactive gabapentin 300 mg capsule RxNorm: 195283 1 Capsule(s) PO TID 2019 Inactive cetirizine 10 mg tablet RxNorm: 8629116 1 Tablet(s) PO daily 2019 Inactive Singulair 10 mg tablet RxNorm: 624677 1 Tablet(s) PO daily 2020 Inactive gentamicin 0.3 % eye drops RxNorm: 868210 1 Drop(s) ophthalmic (eye) four times a day 2019 Inactive gentamicin 0.3 % eye drops RxNorm: 511884 1 Drop(s) ophthalmic (eye) four times a day 2019 Inactive gentamicin 0.3 % eye drops RxNorm: 011430 1 Drop(s) ophthalmic (eye) four times a day 2019 Inactive hydrochlorothiazide 25 mg tablet RxNorm: 142155 1 Tablet(s) Oral every day 2019 Inactive Sudafed 12 Hour 120 mg tablet,extended release RxNorm: 8824304 TAKE (1) TABLET BY MOUTH EVERY 12 HOURS NEEDED 2019 Inactive loperamide 2 mg tablet RxNorm: 821549 1 Tablet(s) Oral as needed take one tablet after each loose stool, maximum of 8 tablets in 24 hours 020 2019 Inactive loperamide 2 mg tablet RxNorm: 689862 1 Tablet(s) Oral as needed take one tablet after each loose stool, maximum of 8 tablets in 24 hours 2019 Inactive atorvastatin 40 mg tablet RxNorm: 063451 1 Tablet(s) Oral every day 020 2020 Inactive quetiapine 100 mg tablet RxNorm: 205552 1 Tablet(s) Oral every night at bedtime 2019 Inactive sertraline 100 mg tablet RxNorm: 226413 1 Tablet(s) Oral 020 2019 Inactive omeprazole 20 mg capsule,delayed release RxNorm: 064339 1 Capsule(s) Oral every day 2019 Inactive amoxicillin 250 mg capsule RxNorm: 893812 1 Capsule(s) Oral three times a day 2019 Inactive multivitamin with iron-mineral tablet RxNorm: 1 Tablet(s) Oral every day 2021 Inactive cetirizine 10 mg tablet RxNorm: 4326150 1 Tablet(s) PO daily 2019 Inactive This refill negates all other refills of this medication. Please do not auto refill Singulair 10 mg tablet RxNorm: 431913 1 Tablet(s) PO daily 2019 Inactive This refill negates all other refills of this medication gabapentin 300 mg capsule RxNorm: 848037 1 Capsule(s) PO TID 2019 Inactive lisinopril 2.5 mg tablet RxNorm: 024011 1 Tablet(s) PO daily 2019 Inactive levothyroxine 50 mcg tablet RxNorm: 960713 1 Tablet(s) PO daily 2019 Inactive This refill negates all other refills of this medication hydrochlorothiazide 25 mg tablet RxNorm: 249630 1 Tablet(s) Oral every day 020 2019 Inactive fenugreek seed extract 500 mg capsule RxNorm: 1 Capsule(s) Oral three times a day 2021 Inactive Alcohol Prep Pads RxNorm: 057440 1 Patch TOP QAM 2020 Inactive loperamide 2 mg tablet RxNorm: 981217 1 Tablet(s) Oral as needed take one [...] 2019 Inactive hydrochlorothiazide 25 mg tablet RxNorm: 997233 1 Tablet(s) Oral every day 2019 Inactive Sudafed 12 Hour 120 mg tablet,extended release RxNorm: 3637541 1 Tablet(s) Oral every 12 hours as needed 2018 Inactive omeprazole 20 mg capsule,delayed release RxNorm: 676783 1 Capsule(s) Oral every day 2019 Inactive Sudafed 12 Hour 120 mg tablet,extended release RxNorm: 7955608 1 Tablet(s) Oral every 12 hours as needed 2018 Inactive pantoprazole 40 mg tablet,delayed release RxNorm: 739488 1 Tablet(s) Oral every day 2018 Inactive discontinue any other H2Blkr. and PPI albuterol sulfate 2.5 mg/3 mL (0.083 %) solution for nebulization RxNorm: 578889 1 Vial Inhalation every four hours as needed as needed for dyspnea 2019 Inactive 60/box. This refill negates all other refills of this medication. Please do not fill early. Please do not auto refill. Symbicort 160 mcg-4.5 mcg/actuation HFA aerosol inhaler RxNorm: 9723535 2 Puff(s) INH BID No Stop Date Active Alcohol Prep Pads RxNorm: 489961 1 Patch TOP QAM 019 2019 Inactive Ventolin HFA 90 mcg/actuation aerosol inhaler RxNorm: 978931 2 Puff(s) INH QID 019 2019 Inactive Please do not fill early. Please do not auto refill. This refill negates all other refills of this medication True Metrix Glucose Test Strip RxNorm: 1 Test Strips Miscellaneous QAM 019 2019 Inactive 100/container atorvastatin 40 mg tablet RxNorm: 444525 1 Tablet(s) Oral every day 019 2019 Inactive buspirone 7.5 mg tablet RxNorm: 662090 1 Tablet(s) PO BID 019 2020 Inactive This refill negates all other refills of this medication hydrochlorothiazide 12.5 mg tablet RxNorm: 589725 1 Tablet(s) PO QAM 019 2019 Inactive levmetamfetamine 50 mg nasal inhaler RxNorm: 1 Unit(s) NASAL Q3-4H Do not use more than every 3 hours or 8 times/24hours 019 2021 Inactive Please do not auto refill. This refill negates all other refills of this medication Ventolin HFA 90 mcg/actuation aerosol inhaler RxNorm: 431178 2 Puff(s) INH QID 019 2018 Inactive Please do not fill early. Please do not auto refill. This refill negates all other refills of this medication Singulair 10 mg tablet RxNorm: 015036 1 Tablet(s) PO daily 019 2019 Inactive This refill negates all other refills of this medication cetirizine 10 mg tablet RxNorm: 3266502 1 Tablet(s) PO daily 019 2019 Inactive This refill negates all other refills of this medication. Please do not auto refill levothyroxine 50 mcg tablet RxNorm: 963294 1 Tablet(s) PO daily 019 2019 Inactive This refill negates all other refills of this medication diclofenac sodium 75 mg tablet,delayed release RxNorm: 519446 1 Tablet(s) PO BID 019 2019 Inactive This refill negates all other refills of this medication ranitidine 150 mg tablet RxNorm: 809762 1 Tablet(s) PO BID 019 2018 Inactive This refill negates all other refills of this medication Calcium 600-D3 Plus (mag-zinc) 600 mg calcium-800 unit-50 mg tablet RxNorm: 1 Tablet(s) PO daily take an additonal tablet for itching. 019 2018 Inactive This refill negates all other refills of this medication albuterol sulfate 2.5 mg/3 mL (0.083 %) solution for nebulization RxNorm: 697488 1 Vial INH QID 2018 Inactive 60/box. This refill negates all other refills of this medication. Please do not fill early. Please do not auto refill. lisinopril 2.5 mg tablet RxNorm: 667731 1 Tablet(s) PO daily 019 2019 Inactive gabapentin 300 mg capsule RxNorm: 855830 1 Capsule(s) PO TID 019 2019 Inactive atorvastatin 20 mg tablet RxNorm: 173938 1 Tablet(s) PO QHS 019 2018 Inactive This refill negates all other refills of this medication TRUEplus Lancets 30 gauge RxNorm: 1 Lancets Miscellaneous QAM 019 2018 Inactive 100/box gabapentin 300 mg capsule RxNorm: 498306 1 Capsule(s) PO TID 019 2018 Inactive Flintstones Complete (iron) 18 mg iron chewable tablet RxNorm: 1 Tablet(s) PO daily 019 2021 Inactive This refill negates all other refills of this medication gabapentin 300 mg capsule RxNorm: 060043 1 Capsule(s) PO TID as needed 019 2018 Inactive True Metrix Glucose Test Strip RxNorm: 1 Test Strips Miscellaneous QA 019 2018 Inactive 100/container Alcohol Prep Pads RxNorm: 882497 1 Patch TOP QA 019 2018 Inactive TRUEplus Lancets 30 gauge RxNorm: 1 Lancets Miscellaneous QAM 019 2018 Inactive 100/box lisinopril 2.5 mg tablet RxNorm: 419637 1 Tablet(s) PO daily 019 2018 Inactive ranitidine 150 mg tablet RxNorm: 648861 1 Tablet(s) PO BID 019 2018 Inactive This refill negates all other refills of this medication albuterol sulfate 2.5 mg/3 mL (0.083 %) solution for nebulization RxNorm: 441556 1 Vial INH QID 019 2018 Inactive [...] this medication gabapentin 300 mg capsule RxNorm: 783460 1 Capsule(s) PO TID as needed 019 2018 Inactive atorvastatin 20 mg tablet RxNorm: 574422 1 Tablet(s) PO QHS 019 2018 Inactive This refill negates all other refills of this medication trazodone 50 mg tablet RxNorm: 883617 1 Tablet(s) PO QHS 019 2018 Inactive This refill negates all other refills of this medication Ventolin HFA 90 mcg/actuation aerosol inhaler RxNorm: 515467 2 Puff(s) INH QID 019 2018 Inactive Please do not fill early. Please do not auto refill. This refill negates all other refills of this medication Calcium 600-D3 Plus 600 mg calcium-800 unit-50 mg tablet RxNorm: 1 Tablet(s) PO daily take an additonal tablet for itching. 019 2018 Inactive This refill negates all other refills of this medication Singulair 10 mg tablet RxNorm: 130924 1 Tablet(s) PO daily 019 2018 Inactive This refill negates all other refills of this medication buspirone 7.5 mg tablet RxNorm: 816979 1 Tablet(s) PO BID 019 2018 Inactive This refill negates all other refills of this medication diclofenac sodium 75 mg tablet,delayed release RxNorm: 987118 1 Tablet(s) PO BID 019 2018 Inactive This refill negates all other refills of this medication hydrochlorothiazide 12.5 mg tablet RxNorm: 906372 1 Tablet(s) PO QAM 019 2018 Inactive metoprolol succinate ER 50 mg tablet,extended release 24 hr RxNorm: 725611 1 Tablet(s) PO daily 019 2018 Inactive This refill negates all other refills of this medication levothyroxine 50 mcg tablet RxNorm: 821896 1 Tablet(s) PO daily 019 2018 Inactive This refill negates all other refills of this medication cetirizine 10 mg tablet RxNorm: 1903887 1 Tablet(s) PO daily 019 2018 Inactive This refill negates all other refills of this medication. Please do not auto refill Flintstones Complete (iron) 18 mg iron chewable tablet RxNorm: 1 Tablet(s) PO daily 019 2018 Inactive This refill negates all other refills of this medication buspirone 7.5 mg tablet RxNorm: 663744 1 Tablet(s) PO BID 019 2018 Inactive cetirizine 10 mg tablet RxNorm: 7642463 1 Tablet(s) PO daily 2018 Inactive Guaiasorb DM 10 mg-100 mg/5 mL oral liquid RxNorm: 087198 10 Milliliter(s) PO As needed every 4 hr 2018 Inactive Vicks Vaporub 4.7 %-1.2 %-2.6 % topical ointment RxNorm: 4371496 1 Application TOP TID 2018 Inactive levmetamfetamine 50 mg nasal inhaler RxNorm: 1 Unit(s) NASAL Q3-4H 2017 Inactive sertraline 50 mg tablet RxNorm: 930353 1 Tablet(s) PO daily 2018 Inactive Please note dose trazodone 50 mg tablet RxNorm: 993785 1 Tablet(s) PO QHS 2018 Inactive sertraline 50 mg tablet RxNorm: 879935 1 Tablet(s) PO daily 2017 Inactive amoxicillin 500 mg tablet RxNorm: 410764 1 Tablet(s) PO Q12H 2017 Inactive albuterol sulfate 2.5 mg/3 mL (0.083 %) solution for nebulization RxNorm: 757341 1 Vial INH QID 2018 Inactive 60/box. Please do not fill early. Please do not auto refill. Prozac 10 mg capsule RxNorm: 165151 1 Capsule(s) PO daily 2017 Inactive buspirone 7.5 mg tablet RxNorm: 089138 1 Tablet(s) PO BID 2018 Inactive gabapentin 300 mg capsule RxNorm: 465209 1 Capsule(s) PO TID as needed 2018 Inactive hydrochlorothiazide 12.5 mg tablet RxNorm: 562166 1 Tablet(s) PO QAM 2018 Inactive ranitidine 150 mg tablet RxNorm: 985511 1 Tablet(s) PO BID 018 2018 Inactive Macrobid 100 mg capsule RxNorm: 740782 1 Capsule(s) PO Q12H 018 2017 Inactive Singulair 10 mg tablet RxNorm: 536217 1 Tablet(s) PO daily 018 2018 Inactive Ventolin HFA 90 mcg/actuation aerosol inhaler RxNorm: 8628825 2 Puff(s) INH QID 018 2018 Inactive Singulair 10 mg tablet RxNorm: 912460 1 Tablet(s) PO daily 018 2017 Inactive buspirone 7.5 mg tablet RxNorm: 841231 1 Tablet(s) PO BID 018 2017 Inactive Prozac 10 mg capsule RxNorm: 088606 1 Capsule(s) PO daily 018 2017 Inactive diclofenac sodium 75 mg tablet,delayed release RxNorm: 096515 1 Tablet(s) PO BID 018 2017 Inactive lisinopril 2.5 mg tablet RxNorm: 543972 1 Tablet(s) PO daily 018 2017 Inactive Neilmed Pediatric Sinus Rinse Refill packet RxNorm: 1 Unit Dose NASAL PRN 018 2021 Inactive metoprolol succinate ER 50 mg tablet,extended release 24 hr RxNorm: 504280 1 Tablet(s) PO daily 018 2017 Inactive levothyroxine 50 mcg tablet RxNorm: 616147 1 Tablet(s) PO daily 018 2017 Inactive TRUEplus Lancets 30 gauge RxNorm: 1 Lancets Miscellaneous QAM 018 2017 Inactive 100/box Ventolin HFA 90 mcg/actuation aerosol inhaler RxNorm: 837696 2 Puff(s) INH QID 018 2017 Inactive Aleve 220 mg capsule RxNorm: 9921582 1 Capsule(s) PO BID 018 2018 Inactive ranitidine 150 mg tablet RxNorm: 707349 1 Tablet(s) PO BID 018 2017 Inactive gabapentin 300 mg capsule RxNorm: 957186 1 Capsule(s) PO TID as needed 018 2017 Inactive atorvastatin 20 mg tablet RxNorm: 500120 1 Tablet(s) PO QHS 018 2017 Inactive True Metrix Glucose Test Strip RxNorm: 1 [facility]ps [facility] 2017 Inactive 50/container Calcium 600-D3 Plus 600 mg calcium-800 unit-50 mg tablet RxNorm: 1 Tablet(s) PO daily take an additonal tablet for itching. 018 2017 Inactive hydrochlorothiazide 12.5 mg tablet RxNorm: 579387 1 Tablet(s) PO QAM 018 2017 Inactive Flintstones Complete (iron) 18 mg iron chewable tablet RxNorm: 1 Tablet(s) PO daily 018 2017 Inactive True Metrix Glucose Meter RxNorm: miscellaneous 019 2018 Inactive sertraline 50 mg tablet RxNorm: 961477 1 Tablet(s) PO daily 020 2019 Inactive loperamide 2 mg tablet RxNorm: 293510 oral 019 2018 Inactive d-mannose oral powder RxNorm: PO 018 2021 Inactive Symbicort 160 mcg-4.5 mcg/actuation HFA aerosol inhaler RxNorm: 2047536 2 Puff(s) INH BID 019 2018 Inactive Medication Administered No Medication Administered data Procedures Procedure Codes Date Hypertension CPT-4: HTN 08/17/2022 [place] Fany Assessment CPT-4: DSWA 04/02 Patient Health [...] CPT-4: VACP Fall Risk Assessment SNOMED CT: 79499129 4 CPT-4: DFRA01/13/2021[place] Fany AssessmentCPT-4: DSWA12/17/2020Urinalysis, dip stickCPT-4: 336551209/24/2020Patient Health QuestionnaireCPT-4: DPHQ 08/19/2020ElectrocardiogramCPT-4: 402999705/14/2020Tobacco Assessment/Screening CPT-4: TCA01/01/2020Fall Risk AssessmentSNOMED CT: 807234431 CPT-4: DFRA01/01/2020Functional AssessmentCPT-4: DFA01/01/2020[place] Fany AssessmentCPT-4: DSWA11/28/2019Patient Health QuestionnaireCPT-4: DPHQ11/28/2019 [place] Fany AssessmentCPT-4: DSWA10/17/2019HypertensionCPT-4: HTN10/17/[address]: 318107963 CPT-4: DFRA09/19/2019Functional AssessmentCPT-4: DFA111/20/2018Urinalysis, dip stickCPT-4: 563587006/21/2019Tobacco Assessment/ScreeningCPT-4: TCA05/24/2019 Patient Health QuestionnaireCPT-4: DPHQ05/24/2019AHA/REBECCA Classification AssessmentCPT-4: DAHA04/25/2019Controlled Substance ReportCPT-4: CTRSU04/25/2019 Urinalysis, dip stickCPT-4: 965854903/28/2019Urinalysis, dip stickCPT-4: 86690 03/28/20195799P0F-ErqwtavnirgmcepITF-6: 55126DtqhklkL0Q-XedlmftwohnkhgdSEX-0: 75470 RqlclpnW5O-ZfkvqnsfufjjwoqROB-3: 70198PbmkolfE6C-SnujbcbpguoixamMQR-0: 55770 GlebnthC8V-HgqtzrilwwdrrejQVT-9: 10959OhycvceP5G-KzgddtuluyjtdstFTR-5: 92297 BklslgsT3X-AuhmluhgfgcwkjhPIK-1: 77133TlixqeuS7N-OhoopnkzusjvuayIQX-0: 45792 DrokbckT3K-SyffgrtajjuzqkaLDB-7: 00984YdaqpxiY0O-QiyjpdrcnhercxgXDY-4: [address]: 069118684 CPT-4: J07Parqnbd Reason For Visit No Reason For Visit data Plan of Care Planned Activity Notes Codes Status Date Referral: Pending Gynecology Referral Informatio n Referral ProcessedReferral: Pending Pulmonology Referral InformationReferralProcessed Referral: Pending Psychiatry Referral InformationReferralInitiatedReferral: Pending Respiratory Services Referral InformationReferralInitiatedReferral: Pending Ophthalmology Referral InformationReferralInitiatedReferral: [facility] WPtel: [address] [place] [address] USWriter placed a call out to the patient to notify her that it has been recommended that she be seenby a urologist. Patient agreed to be seen, does not have a provider of choice and no transportationissues. Intensive Care Specialist faxed referral and clinical notes to [facility] in [place], [place] near the patient's home. Patient to [...] seen and prefers a provider in the [facility]. Intensive Care Specialist placed a call out to everyone listed in the area and the only location that was able to accept the patient's insurance was [address] [place] [address] and spoke with Maylin. Maylin asked that the patient's referral, face sheet and visit notes be faxed to . Intensive Care Specialist faxed over requested documents. Patient appointment confirmation letter generated and mailed to her home address. Patient to call to schedule an appointment.ProcessedReferral: [facility] WPtel: [address] [place] [address] [place], [place] [id number] USPatient notified that it has been advised that she be seen by Neurology. Patient agreed to be seen and prefers to be seen by a provider in the [place], [place] area. Patient denies any concerns with transportation, and prefers to schedule her own appointment. Intensive Care Specialist placed a call out to [facility] and spoke with [...]
--- OUTSIDE RECORDS SUMMARY | 2023-12-07 02:23 | XMS_ITS | CCD ---
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 [id number] Unknown Unknown Family history Mother Diagnosis Age [...] 05/31/2018 Education level Unknown Some High School 10th05/31/20180393BjcdycbboqAphtbbdCkqbvvvdkf29/29/2018Tobacco historySNOMED CT: [id number] never smoked or chewed [id number]/31/2018Alcohol historySNOMED CT: 425120125Huqra drinks [id number]/31/2018Has the patient ever used illegal drugs? UnknownHas never used illegal drugs05/31/2018DNR Order/ Advanced Directive UnknownFull Code05/31/2018 Allergies, Adverse Reactions, Alerts Substance Reaction Codes Entered Date Inactivated Date Status OxyContin itch, RxNorm: 690818 01/13/2021 No Inactive Da te Active *No known food allergies Rapjtnv0109/06/2018No Inactive DateActiveMethylprednisolonehivesRxNorm: 6902 09/06/2018No Inactive DateActive Problems Condition Codes Effective Dates Condition St atus Adult BMI 50.0-59.9 kg/sq m ICD-10: Z68. 43 ICD-9: V85.43005/30/2018ActiveHypertensive heart diseaseICD-10: I11.9 ICD-9: 402.9003/ctiveInsomniaICD-10: G47.00 ICD-9: [...] ICD-9: 401.903/ctivePost-traumatic stress disorder, unspecifiedICD-10: F43.10 ICD-9: 309.8112ActiveAdjustment disorder with mixed anxiety and depressed moodICD-10: F43.23 ICD-9: 309.2812ActiveHypothyroidICD-10: E03.9 ICD-9: 244.912ActiveHyperlipidemia, mixedICD-10: E78.2 ICD-9: 272.203/ctiveAllergic rhinitisICD-10: J30.9 ICD-9: 477.9012/03/2021ctiveEdema, unspecifiedICD-10: R60.9 ICD-9: 782.310ActiveVitamin D deficiencyICD-10: E55.9 ICD-9: 268.9012/03/2021ctiveHypertensive heart disease with heart failureICD-10: I11.0 ICD-9: [...] for depressionICD-10: Z13.31 ICD-9: V79.004/1ResolvedAnorexiaICD-10: R63.0 ICD-9: 783.0031ResolvedBlisterICD-10: T14.8XXA ICD-9: 919.2061ResolvedChronic kidney disease, stage 2 (mild)ICD-10: N18.2 ICD-9: 585.201esolvedCOVID-19 virus RNA test result positive at limit of detectionICD-10: U07.1 ICD-9: 079.8909/esolvedDiarrheaICD-10: R19.7 ICD-9: 787.9111/esolvedDyspnea, unspecifiedICD-10: R06.00 ICD-9: 786.0902/08/2019ResolvedElevated liver enzymesICD-10: R74.8 ICD-9: 790.504/esolvedEncounter for screening, unspecifiedICD-10: Z13.9 ICD-9: V82.9111/06/2017ResolvedFamily history of seizuresICD-10: Z84.89 ICD-9: V19.807esolvedHyperlipidemia, unspecifiedICD-10: E78.5 ICD-9: 272.408/ResolvedLong term (current) use of non-steroidal anti- inflammatories (NSAID)ICD-10: Z79.1 ICD-9: V58.6409ResolvedPatient Not SeenICD-10: UXZ.01 ICD-9: XZ0.107ResolvedPatient not seenICD-10: UXZ.01 ICD-9: UXZ.01121ResolvedUpper respiratory infectionICD-10: J06.9 ICD-9: 465.908/esolvedSyncope and collapseICD-10: R55 ICD-9: 780.ActiveUrinary retention with incomplete bladder emptying ICD-10: R33.9 ICD-9: 788.41ActiveApnea, not elsewhere classifiedICD-10: R06.81 ICD-9: 786.0305/10/2018InactiveChest pain, unspecifiedICD-10: R07.9 ICD-9: 786.5002/InactiveChronic kidney disease, unspecifiedICD-10: N18.9 ICD-9: 585.909/InactiveEncounter for immunizationICD-10: Z23 ICD-9: V03.907/InactiveEncounter for preprocedural cardiovascular examinationICD-10: Z01.810 ICD-9: V72.8106/InactiveHeadacheICD-10: R51 ICD-9: 784.001/10/2018InactiveOther terminal carman (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ICD-10: Z79.899 ICD-9: V58.6907/InactiveType 2 [...] incontinenceICD-10: R15.9 ICD-9: 787.6003/ActiveMixed incontinenceICD-10: N39.46 ICD-9: 788.3308/Active Medications Medication Codes Instructions Start Date Stop Date Status Fill Instructions omeprazole 40 mg capsule,delayed release RxNorm: 20021111 Take 1 Capsule(s) Oral every night at bedtime 023 2022 Inactive trazodone 50 mg tablet RxNorm: 116882 Administer 1 Tablet(s) Oral every night at bedtime 023 No Stop Date Active cholecalciferol (vitamin D3) 50 mcg (2,000 unit) tablet RxNorm: 827692 Take 1 Tablet(s) Oral every day 023 2023 Active Ozempic 1 mg/dose (4 mg/3 mL) subcutaneous pen injector RxNorm: 5198119 USE 1 UNIT DOSE SUBCUTANEOUSLY ON TUE OF EACH WEEK 023 2022 Inactive lisinopril 2.5 mg tablet RxNorm: 106184 Take 1 Tablet(s) Oral every day 023 2022 Inactive Msg From [facility]: Dr. Zapata Requested Ozempic 1 mg/dose (4 mg/3 mL) subcutaneous pen injector RxNorm: 1387240 USE 1 UNIT DOSE SUBCUTANEOUSLY ON TUE OF EACH WEEK 023 2022 Inactive omeprazole 40 mg capsule,delayed release RxNorm: 20021111 Take 1 Capsule(s) Oral every night at bedtime 023 2022 Inactive gabapentin 300 mg capsule RxNorm: 551917 Take 1 Capsule(s) Oral three times a day 023 2022 Inactive montelukast 10 mg tablet RxNorm: 319142 Take 1 Tablet(s) Oral every day 023 2022 Inactive omeprazole 20 mg capsule,delayed release RxNorm: 654926 Take 1 Capsule(s) Oral every evening 022 2022 Inactive Alcohol Prep Pads RxNorm: 627276 USE EACH MORNING 022 2021 Inactive E11.42 clotrimazole 1 % topical cream RxNorm: 554877 Apply 1 Application Topical two times a day as needed apply to affected area(s) twice daily until healed 022 2021 Inactive Victoza 2-Sebastián 0.6 mg/0.1 mL (18 mg/3 mL) subcutaneous pen injector RxNorm: 052453 Inject 0.6-1.8 Milligram(s) Subcutaneous once a week Inject 0.6mg/0.1ml week one, 1.2mg/0.2ml week two, 1.8/0.3ml weekly thereafter 022 2021 Inactive ibuprofen 800 mg tablet RxNorm: 990790 Take 1 Tablet(s) Oral Q8H as needed for pain take with food No Stop Date Active Ozempic 1 mg/dose (4 mg/3 mL) subcutaneous pen injector RxNorm: 8777307 Take 1 Unit Dose Subcutaneous QWeek Tuesday 022 2021 Inactive lisinopril 2.5 mg tablet RxNorm: 952041 Take 1 Tablet(s) Oral every day 2021 Inactive lisinopril 2.5 mg tablet RxNorm: 654966 Take 1 Tablet(s) Oral every day 022 2022 Inactive hydrochlorothiazide 25 mg tablet RxNorm: 644085 Take 1 Tablet(s) Oral every day 022 2021 Inactive Ozempic 1 mg/dose (4 mg/3 mL) subcutaneous pen injector RxNorm: 2813152 Take 1 Unit Dose Subcutaneous QWeek 022 2021 Inactive famotidine 20 mg tablet RxNorm: 592704 Take 1 Tablet(s) Oral every morning 022 2021 Inactive levothyroxine 50 mcg tablet RxNorm: 417294 Take 1 Tablet(s) Oral every day 022 2021 Inactive atorvastatin 20 mg tablet RxNorm: 255182 Take 1 Tablet(s) Oral every night at bedtime 022 2021 Inactive Cleocin T 1 % lotion RxNorm: 712116 Take 2 Gram(s) Topical every day 022 2021 Inactive Cleocin T 1 % lotion RxNorm: 976055 Take 2 Gram(s) Topical every day 022 2021 Inactive Ozempic 1 mg/dose (4 mg/3 mL) subcutaneous pen injector RxNorm: 5075596 Take 1 Unit Dose Subcutaneous QWeek 022 2021 Inactive Ozempic 0.25 mg or 0.5 mg (2 mg/1.5 mL) subcutaneous pen injector RxNorm: 2199553 INJECT 0.5 MGS SUBCUTANEOUSLY EVERY WEEK 2021 Inactive omeprazole 20 mg capsule,delayed release RxNorm: 532166 Take 1 Capsule(s) Oral every evening 2021 Inactive levothyroxine 50 mcg tablet RxNorm: 048828 Take 1 Tablet(s) Oral every day 022 2021 Inactive atorvastatin 20 mg tablet RxNorm: 895343 Take 1 Tablet(s) Oral every night at bedtime 2021 Inactive This refill negates all other refills of this medication lisinopril 2.5 mg tablet RxNorm: 151713 Take 1 Tablet(s) Oral every day 022 2021 Inactive gabapentin 300 mg capsule RxNorm: 458723 Take 1 Capsule(s) Oral three times a day 022 2021 Inactive montelukast 10 mg tablet RxNorm: 453245 Take 1 Tablet(s) Oral every day 2021 Inactive Myrbetriq 50 mg tablet,extended release RxNorm: 6035473 1 Tablet(s) Oral every day No Stop Date Active cholecalciferol (vitamin D3) 50 mcg (2,000 unit) tablet RxNorm: 593141 Take 1 Tablet(s) Oral every day 022 2022 Inactive Ozempic 0.25 mg or 0.5 mg (2 mg/1.5 mL) subcutaneous pen injector RxNorm: 6437182 inject 0.5 milligrams subcutaneously every week 2021 Inactive Ozempic 0.25 mg or 0.5 mg (2 mg/1.5 mL) subcutaneous pen injector RxNorm: 0463577 Take 0.5 Capsule(s) Injection once a week 2021 Inactive omeprazole 20 mg capsule,delayed release RxNorm: 207472 Take 1 Capsule(s) Oral every evening 2020 Inactive Ozempic 0.25 mg or 0.5 mg (2 mg/1.5 mL) subcutaneous pen injector RxNorm: 3359465 Take 0.25 Milligram(s) Subcutaneous once a week 2021 Inactive Easy Touch Alcohol Prep Pads RxNorm: 000051 USE DIRECTED EACH MORNING 2021 Inactive Probiotic 10 billion cell capsule RxNorm: 0154285 Take 1 Capsule(s) Oral every day 2021 Inactive levothyroxine 50 mcg tablet RxNorm: 148436 Take 1 Tablet(s) Oral every day 2020 Inactive Acid Retail Agent (famotidine) 20 mg tablet RxNorm: 616633 Take 1 Tablet(s) Oral every morning 2020 Inactive Heartburn Relief (famotidine) 10 mg tablet RxNorm: 384375 Take 1 Tablet(s) Oral QAM 2020 Inactive levothyroxine 50 mcg tablet RxNorm: 409651 Take 1 Tablet(s) Oral QD 2020 Inactive Singulair 10 mg tablet RxNorm: 872555 TAKE (1) TABLET BY MOUTH DAILY 2020 Inactive metformin 1,000 mg tablet RxNorm: 072383 1 Tablet(s) Oral two times a day 2021 Inactive lisinopril 2.5 mg tablet RxNorm: 187168 Take 1 Tablet(s) Oral every day 021 2020 Inactive hydrochlorothiazide 25 mg tablet RxNorm: 983601 Take 1 Tablet(s) Oral every day 021 2020 Inactive ondansetron 4 mg disintegrating tablet RxNorm: 071913 1 Tablet(s) Oral two times a day 021 2020 Inactive Sudafed 12 Hour 120 mg tablet,extended release RxNorm: 5875942 TAKE 1 TABLET BY MOUTH EVERY 12 HOURS NEEDED 021 2021 Inactive Heartburn Relief (famotidine) 10 mg tablet RxNorm: 411217 Take 1 Tablet(s) Oral every morning 021 2020 Inactive omeprazole 20 mg capsule,delayed release RxNorm: 443004 1 Capsule(s) Oral every evening 021 2020 Inactive sertraline 100 mg tablet RxNorm: 472220 2 Tablet(s) Oral every day 021 2020 Inactive levothyroxine 50 mcg tablet RxNorm: 200548 TAKE (1) TABLET BY MOUTH DAILY 021 2020 Inactive metformin 500 mg tablet RxNorm: 502152 1 Tablet(s) Oral two times a day take with 500mg to equal 1000mg 021 2020 Inactive gabapentin 300 mg capsule RxNorm: 262938 TAKE 1 CAPSULE BY MOUTH THREE TIMES A DAY 021 2020 Inactive lisinopril 2.5 mg tablet RxNorm: 164602 TAKE 1 TABLET BY MOUTH DAILY 021 2020 Inactive gabapentin 300 mg capsule RxNorm: 597229 TAKE 1 CAPSULE BY MOUTH THREE TIMES A DAY 021 2020 Inactive Singulair 10 mg tablet RxNorm: 388592 TAKE (1) TABLET BY MOUTH DAILY 021 2020 Inactive metformin 1,000 mg tablet RxNorm: 972036 1 Tablet(s) Oral two times a day 021 2020 Inactive atorvastatin 40 mg tablet RxNorm: 145664 1 Tablet(s) Oral every day 021 2020 Inactive omeprazole 20 mg capsule,delayed release RxNorm: 539662 1 Capsule(s) Oral every evening 021 2020 Inactive famotidine 10 mg tablet RxNorm: 248949 1 Tablet(s) Oral every morning 2020 Inactive Alcohol Prep Pads RxNorm: 741714 USE EACH MORNING 2020 Inactive omeprazole 20 mg capsule,delayed release RxNorm: 695687 1 Capsule(s) Oral two times a day 2021 Inactive omeprazole 20 mg capsule,delayed release RxNorm: 821051 TAKE 1 CAPSULE BY MOUTH EVERY DAY 2021 Inactive Macrobid 100 mg capsule RxNorm: 461858 1 Capsule(s) Oral every 12 hours with food 2020 Inactive omeprazole 20 mg capsule,delayed release RxNorm: 633933 1 Capsule(s) Oral two times a day 2021 Inactive metformin 1,000 mg tablet RxNorm: 087559 1 Tablet(s) Oral two times a day 2020 Inactive start on September 11, 2020 metformin 500 mg tablet RxNorm: 671399 1 Tablet(s) Oral two times a day take with 500mg to equal 1000mg 2019 Inactive gabapentin 300 mg capsule RxNorm: 254080 TAKE 1 CAPSULE BY MOUTH THREE TIMES DAILY 2020 Inactive cetirizine 10 mg tablet RxNorm: 2627337 TAKE (1) TABLET BY MOUTH DAILY 2020 Inactive metformin 500 mg tablet RxNorm: 991335 1 Tablet(s) Oral two times a day 2019 Inactive loperamide 2 mg tablet RxNorm: 390415 1 Tablet(s) Oral as needed take one tablet after each loose stool, maximum of 8 tablets in 24 hours 2021 Inactive Sudafed 12 Hour 120 mg tablet,extended release RxNorm: 7840985 TAKE 1 TABLET BY MOUTH EVERY 12 HOURS NEEDED 2019 Inactive hydrochlorothiazide 25 mg tablet RxNorm: 752125 TAKE (1) TABLET BY MOUTH EVERY DAY 2019 Inactive omeprazole 20 mg capsule,delayed release RxNorm: 146095 TAKE 1 CAPSULE BY MOUTH EVERY DAY 020 2020 Inactive metformin 500 mg tablet RxNorm: 435230 1 Tablet(s) Oral every day 020 2019 Inactive True Metrix Glucose Test Strip RxNorm: 1 Test Strips Miscellaneous two times a day as needed No Stop Date Active metformin 500 mg tablet RxNorm: 927851 1 Tablet(s) Oral every day 020 2019 Inactive diclofenac sodium 75 mg tablet,delayed release RxNorm: 443539 1 Tablet(s) PO BID 2021 Inactive This refill negates all other refills of this medication Sudafed 12 Hour 120 mg tablet,extended release RxNorm: 7399454 TAKE 1 TABLET BY MOUTH EVERY 12 HOURS NEEDED 2019 Inactive True Metrix Glucose Test Strip RxNorm: 1 Test Strips Miscellaneous every morning 020 2019 Inactive 100/container True Metrix Glucose Test Strip RxNorm: 1 Test Strips Miscellaneous QAM 020 2019 Inactive 100/container loperamide 2 mg tablet RxNorm: 597141 1 Tablet(s) Oral as needed take one tablet after each loose stool, maximum of 8 tablets in 24 hours 020 2019 Inactive cetirizine 10 mg tablet RxNorm: 5783159 1 Tablet(s) PO daily 020 2019 Inactive loperamide 2 mg tablet RxNorm: 862527 1 Tablet(s) Oral as needed take one tablet after each loose stool, maximum of 8 tablets in 24 hours 020 2019 Inactive quetiapine 100 mg tablet RxNorm: 197429 1 Tablet(s) Oral every night at bedtime 020 2019 Inactive levothyroxine 50 mcg tablet RxNorm: 634462 1 Tablet(s) PO daily 020 2020 Inactive gabapentin 300 mg capsule RxNorm: 724973 1 Capsule(s) PO TID 2019 Inactive levothyroxine 50 mcg tablet RxNorm: 539053 1 Tablet(s) PO daily 2019 Inactive lisinopril 2.5 mg tablet RxNorm: 623518 1 Tablet(s) PO daily 2020 Inactive gabapentin 300 mg capsule RxNorm: 893135 1 Capsule(s) PO TID 2019 Inactive cetirizine 10 mg tablet RxNorm: 1178496 1 Tablet(s) PO daily 2019 Inactive Singulair 10 mg tablet RxNorm: 369899 1 Tablet(s) PO daily 2020 Inactive gentamicin 0.3 % eye drops RxNorm: 796567 1 Drop(s) ophthalmic (eye) four times a day 2019 Inactive gentamicin 0.3 % eye drops RxNorm: 556828 1 Drop(s) ophthalmic (eye) four times a day 2019 Inactive gentamicin 0.3 % eye drops RxNorm: 654850 1 Drop(s) ophthalmic (eye) four times a day 2019 Inactive hydrochlorothiazide 25 mg tablet RxNorm: 968322 1 Tablet(s) Oral every day 2019 Inactive Sudafed 12 Hour 120 mg tablet,extended release RxNorm: 0517733 TAKE (1) TABLET BY MOUTH EVERY 12 HOURS NEEDED 2019 Inactive loperamide 2 mg tablet RxNorm: 141000 1 Tablet(s) Oral as needed take one tablet after each loose stool, maximum of 8 tablets in 24 hours 2019 Inactive loperamide 2 mg tablet RxNorm: 015029 1 Tablet(s) Oral as needed take one tablet after each loose stool, maximum of 8 tablets in 24 hours 2019 Inactive atorvastatin 40 mg tablet RxNorm: 212998 1 Tablet(s) Oral every day 2020 Inactive quetiapine 100 mg tablet RxNorm: 440209 1 Tablet(s) Oral every night at bedtime 2019 Inactive sertraline 100 mg tablet RxNorm: 877438 1 Tablet(s) Oral 020 2019 Inactive omeprazole 20 mg capsule,delayed release RxNorm: 647302 1 Capsule(s) Oral every day 2019 Inactive amoxicillin 250 mg capsule RxNorm: 691064 1 Capsule(s) Oral three times a day 2019 Inactive multivitamin with iron-mineral tablet RxNorm: 1 Tablet(s) Oral every day 2021 Inactive cetirizine 10 mg tablet RxNorm: 8517131 1 Tablet(s) PO daily 2019 Inactive This refill negates all other refills of this medication. Please do not auto refill Singulair 10 mg tablet RxNorm: 437761 1 Tablet(s) PO daily 2019 Inactive This refill negates all other refills of this medication gabapentin 300 mg capsule RxNorm: 038249 1 Capsule(s) PO TID 2019 Inactive lisinopril 2.5 mg tablet RxNorm: 948901 1 Tablet(s) PO daily 2019 Inactive levothyroxine 50 mcg tablet RxNorm: 077180 1 Tablet(s) PO daily 2019 Inactive This refill negates all other refills of this medication hydrochlorothiazide 25 mg tablet RxNorm: 559519 1 Tablet(s) Oral every day 2019 Inactive fenugreek seed extract 500 mg capsule RxNorm: 1 Capsule(s) Oral three times a day 020 2021 Inactive Alcohol Prep Pads RxNorm: 053472 1 Patch TOP QAM 020 2020 Inactive loperamide 2 mg tablet RxNorm: 921637 1 Tablet(s) Oral as needed take one [...] 2019 Inactive hydrochlorothiazide 25 mg tablet RxNorm: 161995 1 Tablet(s) Oral every day 2019 Inactive Sudafed 12 Hour 120 mg tablet,extended release RxNorm: 8473332 1 Tablet(s) Oral every 12 hours as needed 2018 Inactive omeprazole 20 mg capsule,delayed release RxNorm: 277127 1 Capsule(s) Oral every day 2019 Inactive Sudafed 12 Hour 120 mg tablet,extended release RxNorm: 9026263 1 Tablet(s) Oral every 12 hours as needed 2018 Inactive pantoprazole 40 mg tablet,delayed release RxNorm: 031328 1 Tablet(s) Oral every day 2018 Inactive discontinue any other H2Blkr. and PPI albuterol sulfate 2.5 mg/3 mL (0.083 %) solution for nebulization RxNorm: 702947 1 Vial Inhalation every four hours as needed as needed for dyspnea 2019 Inactive 60/box. This refill negates all other refills of this medication. Please do not fill early. Please do not auto refill. Symbicort 160 mcg-4.5 mcg/actuation HFA aerosol inhaler RxNorm: 4047584 2 Puff(s) INH BID No Stop Date Active Alcohol Prep Pads RxNorm: 327265 1 Patch TOP QAM 2019 Inactive Ventolin HFA 90 mcg/actuation aerosol inhaler RxNorm: 659442 2 Puff(s) INH QID 019 2019 Inactive Please do not fill early. Please do not auto refill. This refill negates all other refills of this medication True Metrix Glucose Test Strip RxNorm: 1 Test Strips Miscellaneous QAM 019 2019 Inactive 100/container atorvastatin 40 mg tablet RxNorm: 849407 1 Tablet(s) Oral every day 019 2019 Inactive buspirone 7.5 mg tablet RxNorm: 980353 1 Tablet(s) PO BID 019 2020 Inactive This refill negates all other refills of this medication hydrochlorothiazide 12.5 mg tablet RxNorm: 924436 1 Tablet(s) PO QAM 019 2019 Inactive levmetamfetamine 50 mg nasal inhaler RxNorm: 1 Unit(s) NASAL Q3-4H Do not use more than every 3 hours or 8 times/24hours 019 2021 Inactive Please do not auto refill. This refill negates all other refills of this medication Ventolin HFA 90 mcg/actuation aerosol inhaler RxNorm: 287824 2 Puff(s) INH QID 019 2018 Inactive Please do not fill early. Please do not auto refill. This refill negates all other refills of this medication Singulair 10 mg tablet RxNorm: 702206 1 Tablet(s) PO daily 019 2019 Inactive This refill negates all other refills of this medication cetirizine 10 mg tablet RxNorm: 7605764 1 Tablet(s) PO daily 019 2019 Inactive This refill negates all other refills of this medication. Please do not auto refill levothyroxine 50 mcg tablet RxNorm: 546992 1 Tablet(s) PO daily 019 2019 Inactive This refill negates all other refills of this medication diclofenac sodium 75 mg tablet,delayed release RxNorm: 438421 1 Tablet(s) PO BID 019 2019 Inactive This refill negates all other refills of this medication ranitidine 150 mg tablet RxNorm: 204625 1 Tablet(s) PO BID 019 2018 Inactive This refill negates all other refills of this medication Calcium 600-D3 Plus (mag-zinc) 600 mg calcium-800 unit-50 mg tablet RxNorm: 1 Tablet(s) PO daily take an additonal tablet for itching. 019 2018 Inactive This refill negates all other refills of this medication albuterol sulfate 2.5 mg/3 mL (0.083 %) solution for nebulization RxNorm: 181536 1 Vial INH QID 2018 Inactive 60/box. This refill negates all other refills of this medication. Please do not fill early. Please do not auto refill. lisinopril 2.5 mg tablet RxNorm: 348968 1 Tablet(s) PO daily 019 2019 Inactive gabapentin 300 mg capsule RxNorm: 447102 1 Capsule(s) PO TID 019 2019 Inactive atorvastatin 20 mg tablet RxNorm: 889692 1 Tablet(s) PO QHS 2018 Inactive This refill negates all other refills of this medication TRUEplus Lancets 30 gauge RxNorm: 1 Lancets Miscellaneous QAM 2018 Inactive 100/box gabapentin 300 mg capsule RxNorm: 190777 1 Capsule(s) PO TID 019 2018 Inactive Flintstones Complete (iron) 18 mg iron chewable tablet RxNorm: 1 Tablet(s) PO daily 019 2021 Inactive This refill negates all other refills of this medication gabapentin 300 mg capsule RxNorm: 771359 1 Capsule(s) PO TID as needed 019 2018 Inactive True Metrix Glucose Test Strip RxNorm: 1 Test Strips Miscellaneous QAM 019 2018 Inactive 100/container Alcohol Prep Pads RxNorm: 815590 1 Patch TOP QAM 019 2018 Inactive TRUEplus Lancets 30 gauge RxNorm: 1 Lancets Miscellaneous QAM 019 2018 Inactive 100/box lisinopril 2.5 mg tablet RxNorm: 686142 1 Tablet(s) PO daily 019 2018 Inactive ranitidine 150 mg tablet RxNorm: 338312 1 Tablet(s) PO BID 019 2018 Inactive This refill negates all other refills of this medication albuterol sulfate 2.5 mg/3 mL (0.083 %) solution for nebulization RxNorm: 775609 1 Vial INH QID 019 2018 Inactive [...] this medication gabapentin 300 mg capsule RxNorm: 026854 1 Capsule(s) PO TID as needed 019 2018 Inactive atorvastatin 20 mg tablet RxNorm: 530253 1 Tablet(s) PO QHS 019 2018 Inactive This refill negates all other refills of this medication trazodone 50 mg tablet RxNorm: 045811 1 Tablet(s) PO QHS 019 2018 Inactive This refill negates all other refills of this medication Ventolin HFA 90 mcg/actuation aerosol inhaler RxNorm: 471142 2 Puff(s) INH QID 019 2018 Inactive Please do not fill early. Please do not auto refill. This refill negates all other refills of this medication Calcium 600-D3 Plus 600 mg calcium-800 unit-50 mg tablet RxNorm: 1 Tablet(s) PO daily take an additonal tablet for itching. 019 2018 Inactive This refill negates all other refills of this medication Singulair 10 mg tablet RxNorm: 678820 1 Tablet(s) PO daily 019 2018 Inactive This refill negates all other refills of this medication buspirone 7.5 mg tablet RxNorm: 354908 1 Tablet(s) PO BID 019 2018 Inactive This refill negates all other refills of this medication diclofenac sodium 75 mg tablet,delayed release RxNorm: 159913 1 Tablet(s) PO BID 019 2018 Inactive This refill negates all other refills of this medication hydrochlorothiazide 12.5 mg tablet RxNorm: 324990 1 Tablet(s) PO QAM 019 2018 Inactive metoprolol succinate ER 50 mg tablet,extended release 24 hr RxNorm: 446032 1 Tablet(s) PO daily 019 2018 Inactive This refill negates all other refills of this medication levothyroxine 50 mcg tablet RxNorm: 097064 1 Tablet(s) PO daily 019 2018 Inactive This refill negates all other refills of this medication cetirizine 10 mg tablet RxNorm: 4304867 1 Tablet(s) PO daily 019 2018 Inactive This refill negates all other refills of this medication. Please do not auto refill Flintstones Complete (iron) 18 mg iron chewable tablet RxNorm: 1 Tablet(s) PO daily 019 2018 Inactive This refill negates all other refills of this medication buspirone 7.5 mg tablet RxNorm: 387501 1 Tablet(s) PO BID 019 2018 Inactive cetirizine 10 mg tablet RxNorm: 8624150 1 Tablet(s) PO daily 018 2018 Inactive Guaiasorb DM 10 mg-100 mg/5 mL oral liquid RxNorm: 091870 10 Milliliter(s) PO As needed every 4 hr 2018 Inactive Vicks Vaporub 4.7 %-1.2 %-2.6 % topical ointment RxNorm: 9334097 1 Application TOP TID 2018 Inactive levmetamfetamine 50 mg nasal inhaler RxNorm: 1 Unit(s) NASAL Q3-4H 2017 Inactive sertraline 50 mg tablet RxNorm: 191457 1 Tablet(s) PO daily 2018 Inactive Please note dose trazodone 50 mg tablet RxNorm: 386444 1 Tablet(s) PO QHS 2018 Inactive sertraline 50 mg tablet RxNorm: 169388 1 Tablet(s) PO daily 2017 Inactive amoxicillin 500 mg tablet RxNorm: 098606 1 Tablet(s) PO Q12H 2017 Inactive albuterol sulfate 2.5 mg/3 mL (0.083 %) solution for nebulization RxNorm: 481324 1 Vial INH QID 2018 Inactive 60/box. Please do not fill early. Please do not auto refill. Prozac 10 mg capsule RxNorm: 443174 1 Capsule(s) PO daily 2017 Inactive buspirone 7.5 mg tablet RxNorm: 310097 1 Tablet(s) PO BID 2018 Inactive gabapentin 300 mg capsule RxNorm: 820063 1 Capsule(s) PO TID as needed 2018 Inactive hydrochlorothiazide 12.5 mg tablet RxNorm: 602366 1 Tablet(s) PO QAM 2018 Inactive ranitidine 150 mg tablet RxNorm: 818951 1 Tablet(s) PO BID 2018 Inactive Macrobid 100 mg capsule RxNorm: 626725 1 Capsule(s) PO Q12H 2017 Inactive Singulair 10 mg tablet RxNorm: 621205 1 Tablet(s) PO daily 018 2018 Inactive Ventolin HFA 90 mcg/actuation aerosol inhaler RxNorm: 7848332 2 Puff(s) INH QID 018 2018 Inactive Singulair 10 mg tablet RxNorm: 067588 1 Tablet(s) PO daily 018 2017 Inactive buspirone 7.5 mg tablet RxNorm: 837586 1 Tablet(s) PO BID 018 2017 Inactive Prozac 10 mg capsule RxNorm: 901070 1 Capsule(s) PO daily 018 2017 Inactive diclofenac sodium 75 mg tablet,delayed release RxNorm: 684212 1 Tablet(s) PO BID 018 2017 Inactive lisinopril 2.5 mg tablet RxNorm: 795876 1 Tablet(s) PO daily 018 2017 Inactive Neilmed Pediatric Sinus Rinse Refill packet RxNorm: 1 Unit Dose NASAL PRN 018 2021 Inactive metoprolol succinate ER 50 mg tablet,extended release 24 hr RxNorm: 556896 1 Tablet(s) PO daily 018 2017 Inactive levothyroxine 50 mcg tablet RxNorm: 625516 1 Tablet(s) PO daily 018 2017 Inactive TRUEplus Lancets 30 gauge RxNorm: 1 Lancets Miscellaneous QAM 018 2017 Inactive 100/box Ventolin HFA 90 mcg/actuation aerosol inhaler RxNorm: 607160 2 Puff(s) INH QID 018 2017 Inactive Aleve 220 mg capsule RxNorm: 6160308 1 Capsule(s) PO BID 018 2018 Inactive ranitidine 150 mg tablet RxNorm: 256540 1 Tablet(s) PO BID 018 2017 Inactive gabapentin 300 mg capsule RxNorm: 357022 1 Capsule(s) PO TID as needed 018 2017 Inactive atorvastatin 20 mg tablet RxNorm: 198999 1 Tablet(s) PO QHS 018 2017 Inactive True Metrix Glucose Test Strip RxNorm: 1 Test Strips Miscellaneous QA 018 2017 Inactive 50/container Calcium 600-D3 Plus 600 mg calcium-800 unit-50 mg tablet RxNorm: 1 Tablet(s) PO daily take an additonal tablet for itching. 018 2017 Inactive hydrochlorothiazide 12.5 mg tablet RxNorm: 623145 1 Tablet(s) PO QAM 018 2017 Inactive Flintstones Complete (iron) 18 mg iron chewable tablet RxNorm: 1 Tablet(s) PO daily 018 2017 Inactive True Metrix Glucose Meter RxNorm: miscellaneous 019 2018 Inactive sertraline 50 mg tablet RxNorm: 732210 1 Tablet(s) PO daily 020 2019 Inactive loperamide 2 mg tablet RxNorm: 600388 oral 019 2018 Inactive d-mannose oral powder RxNorm: PO 018 2021 Inactive Symbicort 160 mcg-4.5 mcg/actuation HFA aerosol inhaler RxNorm: 4834976 2 Puff(s) INH BID 019 2018 Inactive Medication Administered No Medication Administered data Procedures Procedure Codes Date [place] Fany Assessment CPT-4: DSWA 01/02 Fall Risk Assessment CPT-4: DFRA 01/27/2023 Hypertension CPT-4: HTN 01/27/2023 Patient Health Questionnaire CPT-4: DPHQ Pain Screening CPT-4: PAS 2022 Tobacco Assessment/Screening CPT-4: TCA Hypertension CPT-4: HTN 08/17/2022 [place] Fany Assessment CPT-4: DSWA 04/02 Patient Health [...] Care Planning CPT-4: VACP Fall Risk Assessment SNCOX MONETT CT: 12020259 4 CPT-4: DFRA01/13/2021emmes Fany AssessmentCPT-4: DSWA12/17/2020Urinalysis, dip stickCPT-4: 481287009/24/2020Patient Health QuestionnaireCPT-4: DPHQ 08/19/2020ElectrocardiogramCPT-4: 248875305/14/2020Tobacco Assessment/Screening CPT-4: TCA01/01/2020Fall Risk AssessmentSNOMED CT: 491724798 CPT-4: DFRA01/01/2020Functional AssessmentCPT-4: DFA01/01/2020Semmes Fany AssessmentCPT-4: DSWA11/28/2019Patient Health QuestionnaireCPT-4: DPHQ11/28/2019 [place] Fany AssessmentCPT-4: DSWA10/17/2019HypertensionCPT-4: HTN10/17/[address]: 940142908 CPT-4: DFRA09/19/2019Functional AssessmentCPT-4: DFA111/20/2018Urinalysis, dip stickCPT-4: 4692781Tobacco Assessment/ScreeningCPT-4: TCA05/24/2019 Patient Health QuestionnaireCPT-4: DPHQ05/24/2019AHA/REBECCA Classification AssessmentCPT-4: DAHA04/25/2019Controlled Substance ReportCPT-4: CTRSU04/25/2019 Urinalysis, dip stickCPT-4: 039399303/28/2019Urinalysis, dip stickCPT-4: 43203 03/28/20199008V9W-AukdbsymvgavcpvFTQ-8: 70538JfafbjkS5N-MqkustwbitkmhxnYGU-3: 05627 TfjsprgC2S-NjahlzhetdkxltzYNX-9: 44124NtchkhiW9O-LafolptvfquvrauLIJ-9: 61495 RmwkraeH4X-UmrlolowopvqvzlWAI-9: 03220EkerdgoZ0D-UmhvposeyvcbxwtJAP-0: 51203 WiikqflU6H-IunwosgvmyoxcqnMPJ-9: 06729GyugouhG8O-FkrejaxwkodgdzsKOZ-0: 69217 QxkhybyX3F-EeftqwcuxgganxcBCY-9: 98572YszeezbB0M-KfnyrzimjhwrjpuAHH-9: 20863 AnsjateW7D-IzcbnxsxooygteuHQG-2: 04480QirulnwH1X-TkhhpwcgaigsrnkKEI-5: [address]: 146802465 CPT-4: T71Nyfwdsg Reason For Visit No Reason For Visit data Plan of Care Planned Activity Notes Codes Status Date Referral: Pending Gynecology Referral Informatio n Referral ProcessedReferral: Pending Pulmonology Referral InformationReferralProcessed Referral: Pending Psychiatry Referral InformationReferralInitiatedReferral: Pending Respiratory Services Referral InformationReferralInitiatedReferral: Pending Ophthalmology Referral InformationReferralInitiatedReferral: [facility] WPtel: [address] [place] [address] [id number] USWriter placed a call out to the patient to notify her that it has been recommended that she be seenby a urologist. Patient agreed to be seen, does not have a provider of choice and no transportationissues. Campaign Management Senior Manager faxed referral and clinical notes to [facility] in [place], [place] near the patient's home. Patient to [...] and prefers a provider in the [place] or [place] area. Campaign Management Senior Manager placed a call out to everyone listed in the area and the only location that was able to accept the patient's insurance was [facility] [address] [place] [address] and spoke with Maylin. Maylin asked that the patient's referral, face sheet and visit notes be faxed to . Campaign Management Senior Manager faxed over requested documents. Patient appointment confirmation letter generated and mailed to her home address. Patient to call to schedule an appointment.ProcessedReferral: [facility] WPtel: [address] [place], [place] [id number] USPatient notified that it has been advised that she be seen by Neurology. Patient agreed to be seen and prefers to be seen by a provider in the [place], [place] area. Patient denies any concerns with transportation, and prefers to schedule her own appointment. Campaign Management Senior Manager placed a call out to [facility] and spoke with [...]
--- OUTSIDE RECORDS SUMMARY | 2023-12-07 02:23 | XMS_ITS | CCD ---
Author Name Leena Culver NP Address [address] [place] [address] [place] [id number] Phone Organization [facility] Phone Care Team Providers Care Family Assessment Worker Name Role Phone Anna Culver NP Primary Care Provider Unav ailable Unavailable Chronic Care Management Unavaila ble Summary Purpose DataExchange Insurance Providers Payer name Policy type / Coverage type Covered alliance party ID Effective Begin Date Effective End Date SUKI BUTTS MARIA ESTHER [id number] Unknown Unknown Family history Mother Diagnosis Age [...] 05/31/2018 Education level Unknown Some High School 10th05/31/20183824LdqehiefepXpslpzjDlxpzjyilw25/29/2018Tobacco historySNOMED CT: [id number] never smoked or chewed [id number]/31/2018Alcohol historySNOMED CT: 033804094Aejqr drinks [id number]/31/2018Has the patient ever used illegal drugs? UnknownHas never used illegal drugs05/31/2018DNR Order/ Advanced Directive UnknownFull Code05/31/2018 Allergies, Adverse Reactions, Alerts Substance Reaction Codes Entered Date Inactivated Date Status OxyContin itch, RxNorm: 548962 01/13/2021 No Inactive Da te Active *No known food allergies Bnpbxey8909/06/2018No Inactive DateActiveMethylprednisolonehivesRxNorm: 6902 09/06/2018No Inactive DateActive Problems Condition Codes Effective Dates Condition St atus Adult BMI 50.0-59.9 kg/sq m ICD-10: Z68. 43 ICD-9: V85.4308/ActiveHypertensive heart diseaseICD-10: I11.9 ICD-9: 402.9003/ctiveInsomniaICD-10: G47.00 ICD-9: 780.5204/ctiveMajor depression, recurrentICD-10: F33.9 ICD-9: 296.3009/ctiveType 2 diabetes mellitus with peripheral neuropathy ICD-10: E11.42 ICD-9: 250.6002/ActiveGERD (gastroesophageal reflux disease)ICD-10: K21.9 ICD-9: 530.8112ActiveObstructive sleep apnea (adult) (pediatric)ICD-10: G47.33 ICD-9: 327.2309/ActiveAsthmaICD-10: [...] ICD-9: V64.0609/InactiveOpen wound of right middle fingerICD-10: S61.202A ICD-9: 883.001/InactiveHypertensionICD-10: I10 ICD-9: 401.903/2ActivePost-traumatic stress disorder, unspecifiedICD-10: F43.10 ICD-9: 309.8112ActiveAdjustment disorder with mixed anxiety and depressed moodICD-10: F43.23 ICD-9: 309.2812ActiveHypothyroidICD-10: E03.9 ICD-9: 244.912ActiveHyperlipidemia, mixedICD-10: E78.2 ICD-9: 272.203/2ActiveAllergic rhinitisICD-10: J30.9 ICD-9: 477.903/2ActiveEdema, unspecifiedICD-10: R60.9 ICD-9: 782.310ActiveVitamin D deficiencyICD-10: E55.9 [...] Encounter for screening for depressionICD-10: Z13.31 ICD-9: V79.004/esolvedAnorexiaICD-10: R63.0 ICD-9: 783.003/1ResolvedBlisterICD-10: T14.8XXA ICD-9: 919.esolvedChronic kidney disease, stage 2 (mild)ICD-10: N18.2 ICD-9: [...] examinationICD-10: Z01.810 ICD-9: V72.8106/InactiveHeadacheICD-10: R51 ICD-9: 784.001/10/2018InactiveOther superintendent terminal (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ICD-10: Z79.899 ICD-9: V58.6907/InactiveType [...] unspecifiedICD-10: G62.9 ICD-9: 356.908/ActiveFecal incontinenceICD-10: R15.9 ICD-9: 787.6003ActiveMixed incontinenceICD-10: N39.46 ICD-9: 788.3308Active Medications Medication Codes Instructions Start Date Stop Date Status Fill Instructions Ozempic 1 mg/dose (4 mg/3 mL) subcutaneous pen injector RxNorm: 8313072 USE 1 UNIT DOSE SUBCUTANEOUSLY ON TUE OF EACH WEEK 023 2022 Inactive trazodone 50 mg tablet RxNorm: 807935 Administer 1 Tablet(s) Oral every night at bedtime 023 No Stop Date Active cholecalciferol (vitamin D3) 50 mcg (2,000 unit) tablet RxNorm: 491747 Take 1 Tablet(s) Oral every day 023 2023 Active lisinopril 2.5 mg tablet RxNorm: 828940 Take 1 Tablet(s) Oral every day 023 2022 Inactive Msg From [facility]: Dr. Zapata Requested Ozempic 1 mg/dose (4 mg/3 mL) subcutaneous pen injector RxNorm: 2984940 USE 1 UNIT DOSE SUBCUTANEOUSLY ON TUE OF EACH WEEK 023 2022 Inactive omeprazole 40 mg capsule,delayed release RxNorm: 678000 Take 1 Capsule(s) Oral every night at bedtime 023 2022 Inactive gabapentin 300 mg capsule RxNorm: 547411 Take 1 Capsule(s) Oral three times a day 023 2022 Inactive montelukast 10 mg tablet RxNorm: 771791 Take 1 Tablet(s) Oral every day 023 2022 Inactive omeprazole 20 mg capsule,delayed release RxNorm: 514931 Take 1 Capsule(s) Oral every evening 022 2022 Inactive Alcohol Prep Pads RxNorm: 542438 USE EACH MORNING 022 2021 Inactive E11.42 clotrimazole 1 % topical cream RxNorm: 994208 Apply 1 Application Topical two times a day as needed apply to affected area(s) twice daily until healed 2021 Inactive Victoza 2-Sebastián 0.6 mg/0.1 mL (18 mg/3 mL) subcutaneous pen injector RxNorm: 547689 Inject 0.6-1.8 Milligram(s) Subcutaneous once a week Inject 0.6mg/0.1ml week one, 1.2mg/0.2ml week two, 1.8/0.3ml weekly thereafter 022 2021 Inactive ibuprofen 800 mg tablet RxNorm: 511009 Take 1 Tablet(s) Oral Q8H as needed for pain take with food No Stop Date Active Ozempic 1 mg/dose (4 mg/3 mL) subcutaneous pen injector RxNorm: 2015215 Take 1 Unit Dose Subcutaneous QWeek Tuesday 022 2021 Inactive lisinopril 2.5 mg tablet RxNorm: 107426 Take 1 Tablet(s) Oral every day 2021 Inactive lisinopril 2.5 mg tablet RxNorm: 894136 Take 1 Tablet(s) Oral every day 022 2022 Inactive hydrochlorothiazide 25 mg tablet RxNorm: 141955 Take 1 Tablet(s) Oral every day 022 2021 Inactive Ozempic 1 mg/dose (4 mg/3 mL) subcutaneous pen injector RxNorm: 9950288 Take 1 Unit Dose Subcutaneous QWeek 2021 Inactive famotidine 20 mg tablet RxNorm: 190757 Take 1 Tablet(s) Oral every morning 2021 Inactive levothyroxine 50 mcg tablet RxNorm: 834811 Take 1 Tablet(s) Oral every day 022 2021 Inactive atorvastatin 20 mg tablet RxNorm: 945797 Take 1 Tablet(s) Oral every night at bedtime 022 2021 Inactive Cleocin T 1 % lotion RxNorm: 619521 Take 2 Gram(s) Topical every day 022 2021 Inactive Cleocin T 1 % lotion RxNorm: 853829 Take 2 Gram(s) Topical every day 022 2021 Inactive Ozempic 1 mg/dose (4 mg/3 mL) subcutaneous pen injector RxNorm: 2710066 Take 1 Unit Dose Subcutaneous QWeek 022 2021 Inactive Ozempic 0.25 mg or 0.5 mg (2 mg/1.5 mL) subcutaneous pen injector RxNorm: 8155868 INJECT 0.5 MGS SUBCUTANEOUSLY EVERY WEEK 2021 Inactive omeprazole 20 mg capsule,delayed release RxNorm: 463922 Take 1 Capsule(s) Oral every evening 2021 Inactive levothyroxine 50 mcg tablet RxNorm: 279830 Take 1 Tablet(s) Oral every day 022 2021 Inactive atorvastatin 20 mg tablet RxNorm: 450443 Take 1 Tablet(s) Oral every night at bedtime 2021 Inactive This refill negates all other refills of this medication lisinopril 2.5 mg tablet RxNorm: 369050 Take 1 Tablet(s) Oral every day 2021 Inactive gabapentin 300 mg capsule RxNorm: 793188 Take 1 Capsule(s) Oral three times a day 022 2021 Inactive montelukast 10 mg tablet RxNorm: 670346 Take 1 Tablet(s) Oral every day 2021 Inactive Myrbetriq 50 mg tablet,extended release RxNorm: 2664894 1 Tablet(s) Oral every day No Stop Date Active cholecalciferol (vitamin D3) 50 mcg (2,000 unit) tablet RxNorm: 907425 Take 1 Tablet(s) Oral every day 022 2022 Inactive Ozempic 0.25 mg or 0.5 mg (2 mg/1.5 mL) subcutaneous pen injector RxNorm: 8641646 inject 0.5 milligrams subcutaneously every week 2021 Inactive Ozempic 0.25 mg or 0.5 mg (2 mg/1.5 mL) subcutaneous pen injector RxNorm: 2978402 Take 0.5 Capsule(s) Injection once a week 2021 Inactive omeprazole 20 mg capsule,delayed release RxNorm: 395680 Take 1 Capsule(s) Oral every evening 2020 Inactive Ozempic 0.25 mg or 0.5 mg (2 mg/1.5 mL) subcutaneous pen injector RxNorm: 5176875 Take 0.25 Milligram(s) Subcutaneous once a week 2021 Inactive Easy Touch Alcohol Prep Pads RxNorm: 995237 USE DIRECTED EACH MORNING 2021 Inactive Probiotic 10 billion cell capsule RxNorm: 3785497 Take 1 Capsule(s) Oral every day 2021 Inactive levothyroxine 50 mcg tablet RxNorm: 089274 Take 1 Tablet(s) Oral every day 2020 Inactive Acid Concrete Fence Builder (famotidine) 20 mg tablet RxNorm: 423646 Take 1 Tablet(s) Oral every morning 2020 Inactive Heartburn Relief (famotidine) 10 mg tablet RxNorm: 244806 Take 1 Tablet(s) Oral QAM 2020 Inactive levothyroxine 50 mcg tablet RxNorm: 053528 Take 1 Tablet(s) Oral QD 2020 Inactive Singulair 10 mg tablet RxNorm: 033453 TAKE (1) TABLET BY MOUTH DAILY 2020 Inactive metformin 1,000 mg tablet RxNorm: 530988 1 Tablet(s) Oral two times a day 2021 Inactive lisinopril 2.5 mg tablet RxNorm: 907995 Take 1 Tablet(s) Oral every day 021 2020 Inactive hydrochlorothiazide 25 mg tablet RxNorm: 781160 Take 1 Tablet(s) Oral every day 021 2020 Inactive ondansetron 4 mg disintegrating tablet RxNorm: 776772 1 Tablet(s) Oral two times a day 021 2020 Inactive Sudafed 12 Hour 120 mg tablet,extended release RxNorm: 1491270 TAKE 1 TABLET BY MOUTH EVERY 12 HOURS NEEDED 021 2021 Inactive Heartburn Relief (famotidine) 10 mg tablet RxNorm: 739605 Take 1 Tablet(s) Oral every morning 021 2020 Inactive omeprazole 20 mg capsule,delayed release RxNorm: 976245 1 Capsule(s) Oral every evening 021 2020 Inactive sertraline 100 mg tablet RxNorm: 180340 2 Tablet(s) Oral every day 021 2020 Inactive levothyroxine 50 mcg tablet RxNorm: 121931 TAKE (1) TABLET BY MOUTH DAILY 021 2020 Inactive metformin 500 mg tablet RxNorm: 388626 1 Tablet(s) Oral two times a day take with 500mg to equal 1000mg 021 2020 Inactive gabapentin 300 mg capsule RxNorm: 129650 TAKE 1 CAPSULE BY MOUTH THREE TIMES A DAY 021 2020 Inactive lisinopril 2.5 mg tablet RxNorm: 329416 TAKE 1 TABLET BY MOUTH DAILY 021 2020 Inactive gabapentin 300 mg capsule RxNorm: 801021 TAKE 1 CAPSULE BY MOUTH THREE TIMES A DAY 021 2020 Inactive Singulair 10 mg tablet RxNorm: 069458 TAKE (1) TABLET BY MOUTH DAILY 021 2020 Inactive metformin 1,000 mg tablet RxNorm: 759703 1 Tablet(s) Oral two times a day 021 2020 Inactive atorvastatin 40 mg tablet RxNorm: 808572 1 Tablet(s) Oral every day 021 2020 Inactive omeprazole 20 mg capsule,delayed release RxNorm: 866883 1 Capsule(s) Oral every evening 021 2020 Inactive famotidine 10 mg tablet RxNorm: 923240 1 Tablet(s) Oral every morning 021 2020 Inactive Alcohol Prep Pads RxNorm: 524520 USE EACH MORNING 021 2020 Inactive omeprazole 20 mg capsule,delayed release RxNorm: 978024 1 Capsule(s) Oral two times a day 2021 Inactive omeprazole 20 mg capsule,delayed release RxNorm: 372078 TAKE 1 CAPSULE BY MOUTH EVERY DAY 2021 Inactive Macrobid 100 mg capsule RxNorm: 250963 1 Capsule(s) Oral every 12 hours with food 2020 Inactive omeprazole 20 mg capsule,delayed release RxNorm: 132614 1 Capsule(s) Oral two times a day 2021 Inactive metformin 1,000 mg tablet RxNorm: 309589 1 Tablet(s) Oral two times a day 2020 Inactive start on September 11, 2020 metformin 500 mg tablet RxNorm: 581034 1 Tablet(s) Oral two times a day take with 500mg to equal 1000mg 2019 Inactive gabapentin 300 mg capsule RxNorm: 444341 TAKE 1 CAPSULE BY MOUTH THREE TIMES DAILY 2020 Inactive cetirizine 10 mg tablet RxNorm: 3414123 TAKE (1) TABLET BY MOUTH DAILY 2020 Inactive metformin 500 mg tablet RxNorm: 928169 1 Tablet(s) Oral two times a day 2019 Inactive loperamide 2 mg tablet RxNorm: 090027 1 Tablet(s) Oral as needed take one tablet after each loose stool, maximum of 8 tablets in 24 hours 2021 Inactive Sudafed 12 Hour 120 mg tablet,extended release RxNorm: 7732632 TAKE 1 TABLET BY MOUTH EVERY 12 HOURS NEEDED 2019 Inactive hydrochlorothiazide 25 mg tablet RxNorm: 080487 TAKE (1) TABLET BY MOUTH EVERY DAY 06/11/ 2020 Inactive omeprazole 20 mg capsule,delayed release RxNorm: 506975 TAKE 1 CAPSULE BY MOUTH EVERY DAY 020 2020 Inactive metformin 500 mg tablet RxNorm: 071386 1 Tablet(s) Oral every day 020 2019 Inactive True Metrix Glucose Test Strip RxNorm: 1 Test Strips Miscellaneous two times a day as needed No Stop Date Active metformin 500 mg tablet RxNorm: 780712 1 Tablet(s) Oral every day 020 2019 Inactive diclofenac sodium 75 mg tablet,delayed release RxNorm: 111308 1 Tablet(s) PO BID 2021 Inactive This refill negates all other refills of this medication Sudafed 12 Hour 120 mg tablet,extended release RxNorm: 2955624 TAKE 1 TABLET BY MOUTH EVERY 12 HOURS NEEDED 020 2019 Inactive True Metrix Glucose Test Strip RxNorm: 1 Test Strips Miscellaneous every morning 020 2019 Inactive 100/container True Metrix Glucose Test Strip RxNorm: 1 Test Strips Miscellaneous QAM 020 2019 Inactive 100/container loperamide 2 mg tablet RxNorm: 857761 1 Tablet(s) Oral as needed take one tablet after each loose stool, maximum of 8 tablets in 24 hours 020 2019 Inactive cetirizine 10 mg tablet RxNorm: 8206829 1 Tablet(s) PO daily 020 2019 Inactive loperamide 2 mg tablet RxNorm: 195706 1 Tablet(s) Oral as needed take one tablet after each loose stool, maximum of 8 tablets in 24 hours 020 2019 Inactive quetiapine 100 mg tablet RxNorm: 661186 1 Tablet(s) Oral every night at bedtime 020 2019 Inactive levothyroxine 50 mcg tablet RxNorm: 665502 1 Tablet(s) PO daily 020 2020 Inactive gabapentin 300 mg capsule RxNorm: 414547 1 Capsule(s) PO TID 2019 Inactive levothyroxine 50 mcg tablet RxNorm: 582493 1 Tablet(s) PO daily 2019 Inactive lisinopril 2.5 mg tablet RxNorm: 235341 1 Tablet(s) PO daily 2020 Inactive gabapentin 300 mg capsule RxNorm: 790959 1 Capsule(s) PO TID 2019 Inactive cetirizine 10 mg tablet RxNorm: 2977801 1 Tablet(s) PO daily 2019 Inactive Singulair 10 mg tablet RxNorm: 148792 1 Tablet(s) PO daily 2020 Inactive gentamicin 0.3 % eye drops RxNorm: 898470 1 Drop(s) ophthalmic (eye) four times a day 2019 Inactive gentamicin 0.3 % eye drops RxNorm: 183461 1 Drop(s) ophthalmic (eye) four times a day 2019 Inactive gentamicin 0.3 % eye drops RxNorm: 622076 1 Drop(s) ophthalmic (eye) four times a day 2019 Inactive hydrochlorothiazide 25 mg tablet RxNorm: 436919 1 Tablet(s) Oral every day 2019 Inactive Sudafed 12 Hour 120 mg tablet,extended release RxNorm: 8128213 TAKE (1) TABLET BY MOUTH EVERY 12 HOURS NEEDED 2019 Inactive loperamide 2 mg tablet RxNorm: 593605 1 Tablet(s) Oral as needed take one tablet after each loose stool, maximum of 8 tablets in 24 hours 2019 Inactive loperamide 2 mg tablet RxNorm: 306503 1 Tablet(s) Oral as needed take one tablet after each loose stool, maximum of 8 tablets in 24 hours 2019 Inactive atorvastatin 40 mg tablet RxNorm: 797102 1 Tablet(s) Oral every day 2021 Inactive quetiapine 100 mg tablet RxNorm: 493285 1 Tablet(s) Oral every night at bedtime 2019 Inactive sertraline 100 mg tablet RxNorm: 758748 1 Tablet(s) Oral 020 2019 Inactive omeprazole 20 mg capsule,delayed release RxNorm: 519890 1 Capsule(s) Oral every day 2019 Inactive amoxicillin 250 mg capsule RxNorm: 567675 1 Capsule(s) Oral three times a day 2019 Inactive multivitamin with iron-mineral tablet RxNorm: 1 Tablet(s) Oral every day 2021 Inactive cetirizine 10 mg tablet RxNorm: 9075878 1 Tablet(s) PO daily 2019 Inactive This refill negates all other refills of this medication. Please do not auto refill Singulair 10 mg tablet RxNorm: 638770 1 Tablet(s) PO daily 2019 Inactive This refill negates all other refills of this medication gabapentin 300 mg capsule RxNorm: 150381 1 Capsule(s) PO TID 2019 Inactive lisinopril 2.5 mg tablet RxNorm: 227369 1 Tablet(s) PO daily 2019 Inactive levothyroxine 50 mcg tablet RxNorm: 258185 1 Tablet(s) PO daily 2019 Inactive This refill negates all other refills of this medication hydrochlorothiazide 25 mg tablet RxNorm: 074425 1 Tablet(s) Oral every day 2019 Inactive fenugreek seed extract 500 mg capsule RxNorm: 1 Capsule(s) Oral three times a day 020 2021 Inactive Alcohol Prep Pads RxNorm: 996346 1 Patch TOP QAM 020 2020 Inactive loperamide 2 mg tablet RxNorm: 452395 1 Tablet(s) Oral as needed take one [...] 2019 Inactive hydrochlorothiazide 25 mg tablet RxNorm: 541198 1 Tablet(s) Oral every day 2019 Inactive Sudafed 12 Hour 120 mg tablet,extended release RxNorm: 0251400 1 Tablet(s) Oral every 12 hours as needed 2018 Inactive omeprazole 20 mg capsule,delayed release RxNorm: 686780 1 Capsule(s) Oral every day 2019 Inactive Sudafed 12 Hour 120 mg tablet,extended release RxNorm: 8187462 1 Tablet(s) Oral every 12 hours as needed 019 2018 Inactive pantoprazole 40 mg tablet,delayed release RxNorm: 051070 1 Tablet(s) Oral every day 2018 Inactive discontinue any other H2Blkr. and PPI albuterol sulfate 2.5 mg/3 mL (0.083 %) solution for nebulization RxNorm: 355474 1 Vial Inhalation every four hours as needed as needed for dyspnea 2019 Inactive 60/box. This refill negates all other refills of this medication. Please do not fill early. Please do not auto refill. Symbicort 160 mcg-4.5 mcg/actuation HFA aerosol inhaler RxNorm: 8008705 2 Puff(s) INH BID No Stop Date Active Alcohol Prep Pads RxNorm: 867459 1 Patch TOP QAM 2019 Inactive Ventolin HFA 90 mcg/actuation aerosol inhaler RxNorm: 637211 2 Puff(s) INH QID 019 2019 Inactive Please do not fill early. Please do not auto refill. This refill negates all other refills of this medication True Metrix Glucose Test Strip RxNorm: 1 Test Strips Miscellaneous QAM 019 2019 Inactive 100/container atorvastatin 40 mg tablet RxNorm: 680115 1 Tablet(s) Oral every day 019 2019 Inactive buspirone 7.5 mg tablet RxNorm: 981848 1 Tablet(s) PO BID 019 2020 Inactive This refill negates all other refills of this medication hydrochlorothiazide 12.5 mg tablet RxNorm: 876985 1 Tablet(s) PO QAM 019 2019 Inactive levmetamfetamine 50 mg nasal inhaler RxNorm: 1 Unit(s) NASAL Q3-4H Do not use more than every 3 hours or 8 times/24hours 019 2021 Inactive Please do not auto refill. This refill negates all other refills of this medication Ventolin HFA 90 mcg/actuation aerosol inhaler RxNorm: 166534 2 Puff(s) INH QID 019 2018 Inactive Please do not fill early. Please do not auto refill. This refill negates all other refills of this medication Singulair 10 mg tablet RxNorm: 144243 1 Tablet(s) PO daily 019 2019 Inactive This refill negates all other refills of this medication cetirizine 10 mg tablet RxNorm: 3918224 1 Tablet(s) PO daily 019 2019 Inactive This refill negates all other refills of this medication. Please do not auto refill levothyroxine 50 mcg tablet RxNorm: 735024 1 Tablet(s) PO daily 019 2019 Inactive This refill negates all other refills of this medication diclofenac sodium 75 mg tablet,delayed release RxNorm: 312812 1 Tablet(s) PO BID 019 2019 Inactive This refill negates all other refills of this medication ranitidine 150 mg tablet RxNorm: 393255 1 Tablet(s) PO BID 019 2018 Inactive This refill negates all other refills of this medication Calcium 600-D3 Plus (mag-zinc) 600 mg calcium-800 unit-50 mg tablet RxNorm: 1 Tablet(s) PO daily take an additonal tablet for itching. 2018 Inactive This refill negates all other refills of this medication albuterol sulfate 2.5 mg/3 mL (0.083 %) solution for nebulization RxNorm: 846769 1 Vial INH QID 2018 Inactive 60/box. This refill negates all other refills of this medication. Please do not fill early. Please do not auto refill. lisinopril 2.5 mg tablet RxNorm: 246093 1 Tablet(s) PO daily 019 2019 Inactive gabapentin 300 mg capsule RxNorm: 123576 1 Capsule(s) PO TID 019 2019 Inactive atorvastatin 20 mg tablet RxNorm: 384514 1 Tablet(s) PO QHS 2018 Inactive This refill negates all other refills of this medication TRUEplus Lancets 30 gauge RxNorm: 1 Lancets Miscellaneous QAM 2018 Inactive 100/box gabapentin 300 mg capsule RxNorm: 568253 1 Capsule(s) PO TID 019 2018 Inactive Flintstones Complete (iron) 18 mg iron chewable tablet RxNorm: 1 Tablet(s) PO daily 019 2021 Inactive This refill negates all other refills of this medication gabapentin 300 mg capsule RxNorm: 515691 1 Capsule(s) PO TID as needed 019 2018 Inactive True Metrix Glucose Test Strip RxNorm: 1 Test Strips Miscellaneous QAM 019 2018 Inactive 100/container Alcohol Prep Pads RxNorm: 403841 1 Patch TOP QA 019 2018 Inactive TRUEplus Lancets 30 gauge RxNorm: 1 Lancets Miscellaneous QA 019 2018 Inactive 100/box lisinopril 2.5 mg tablet RxNorm: 571763 1 Tablet(s) PO daily 019 2018 Inactive ranitidine 150 mg tablet RxNorm: 417509 1 Tablet(s) PO BID 019 2018 Inactive This refill negates all other refills of this medication albuterol sulfate 2.5 mg/3 mL (0.083 %) solution for nebulization RxNorm: 900290 1 Vial INH QID 019 2018 Inactive [...] this medication gabapentin 300 mg capsule RxNorm: 997924 1 Capsule(s) PO TID as needed 019 2018 Inactive atorvastatin 20 mg tablet RxNorm: 865489 1 Tablet(s) PO QHS 019 2018 Inactive This refill negates all other refills of this medication trazodone 50 mg tablet RxNorm: 556373 1 Tablet(s) PO QHS 019 2018 Inactive This refill negates all other refills of this medication Ventolin HFA 90 mcg/actuation aerosol inhaler RxNorm: 120629 2 Puff(s) INH QID 019 2018 Inactive Please do not fill early. Please do not auto refill. This refill negates all other refills of this medication Calcium 600-D3 Plus 600 mg calcium-800 unit-50 mg tablet RxNorm: 1 Tablet(s) PO daily take an additonal tablet for itching. 019 2018 Inactive This refill negates all other refills of this medication Singulair 10 mg tablet RxNorm: 675007 1 Tablet(s) PO daily 019 2018 Inactive This refill negates all other refills of this medication buspirone 7.5 mg tablet RxNorm: 132350 1 Tablet(s) PO BID 019 2018 Inactive This refill negates all other refills of this medication diclofenac sodium 75 mg tablet,delayed release RxNorm: 046551 1 Tablet(s) PO BID 019 2018 Inactive This refill negates all other refills of this medication hydrochlorothiazide 12.5 mg tablet RxNorm: 409778 1 Tablet(s) PO QAM 019 2018 Inactive metoprolol succinate ER 50 mg tablet,extended release 24 hr RxNorm: 439911 1 Tablet(s) PO daily 019 2018 Inactive This refill negates all other refills of this medication levothyroxine 50 mcg tablet RxNorm: 405249 1 Tablet(s) PO daily 019 2018 Inactive This refill negates all other refills of this medication cetirizine 10 mg tablet RxNorm: 4504202 1 Tablet(s) PO daily 019 2018 Inactive This refill negates all other refills of this medication. Please do not auto refill Flintstones Complete (iron) 18 mg iron chewable tablet RxNorm: 1 Tablet(s) PO daily 019 2018 Inactive This refill negates all other refills of this medication buspirone 7.5 mg tablet RxNorm: 309825 1 Tablet(s) PO BID 019 2018 Inactive cetirizine 10 mg tablet RxNorm: 2900511 1 Tablet(s) PO daily 018 2018 Inactive Guaiasorb DM 10 mg-100 mg/5 mL oral liquid RxNorm: 561084 10 Milliliter(s) PO As needed every 4 hr 2018 Inactive Vicks Vaporub 4.7 %-1.2 %-2.6 % topical ointment RxNorm: 9459062 1 Application TOP TID 2018 Inactive levmetamfetamine 50 mg nasal inhaler RxNorm: 1 Unit(s) NASAL Q3-4H 2017 Inactive sertraline 50 mg tablet RxNorm: 813391 1 Tablet(s) PO daily 2018 Inactive Please note dose trazodone 50 mg tablet RxNorm: 051840 1 Tablet(s) PO QHS 2018 Inactive sertraline 50 mg tablet RxNorm: 738713 1 Tablet(s) PO daily 2017 Inactive amoxicillin 500 mg tablet RxNorm: 367462 1 Tablet(s) PO Q12H 2017 Inactive albuterol sulfate 2.5 mg/3 mL (0.083 %) solution for nebulization RxNorm: 642942 1 Vial INH QID 2018 Inactive 60/box. Please do not fill early. Please do not auto refill. Prozac 10 mg capsule RxNorm: 689133 1 Capsule(s) PO daily 2017 Inactive buspirone 7.5 mg tablet RxNorm: 120911 1 Tablet(s) PO BID 2018 Inactive gabapentin 300 mg capsule RxNorm: 974449 1 Capsule(s) PO TID as needed 2018 Inactive hydrochlorothiazide 12.5 mg tablet RxNorm: 272084 1 Tablet(s) PO QAM 2018 Inactive ranitidine 150 mg tablet RxNorm: 199094 1 Tablet(s) PO BID 2018 Inactive Macrobid 100 mg capsule RxNorm: 935670 1 Capsule(s) PO Q12H 2017 Inactive Singulair 10 mg tablet RxNorm: 018874 1 Tablet(s) PO daily 018 2018 Inactive Ventolin HFA 90 mcg/actuation aerosol inhaler RxNorm: 0813501 2 Puff(s) INH QID 018 2018 Inactive Singulair 10 mg tablet RxNorm: 309817 1 Tablet(s) PO daily 018 2017 Inactive buspirone 7.5 mg tablet RxNorm: 719312 1 Tablet(s) PO BID 018 2017 Inactive Prozac 10 mg capsule RxNorm: 142157 1 Capsule(s) PO daily 018 2017 Inactive diclofenac sodium 75 mg tablet,delayed release RxNorm: 016548 1 Tablet(s) PO BID 018 2017 Inactive lisinopril 2.5 mg tablet RxNorm: 012682 1 Tablet(s) PO daily 018 2017 Inactive [facility] Pediatric Sinus Rinse Refill packet RxNorm: 1 Unit Dose NASAL PRN 018 2021 Inactive metoprolol succinate ER 50 mg tablet,extended release 24 hr RxNorm: 334362 1 Tablet(s) PO daily 018 2017 Inactive levothyroxine 50 mcg tablet RxNorm: 564065 1 Tablet(s) PO daily 018 2017 Inactive TRUEplus Lancets 30 gauge RxNorm: 1 Lancets Miscellaneous QAM 018 2017 Inactive 100/box Ventolin HFA 90 mcg/actuation aerosol inhaler RxNorm: 701293 2 Puff(s) INH QID 018 2017 Inactive Aleve 220 mg capsule RxNorm: 1532972 1 Capsule(s) PO BID 018 2018 Inactive ranitidine 150 mg tablet RxNorm: 349078 1 Tablet(s) PO BID 018 2017 Inactive gabapentin 300 mg capsule RxNorm: 078547 1 Capsule(s) PO TID as needed 018 2017 Inactive atorvastatin 20 mg tablet RxNorm: 566284 1 Tablet(s) PO QHS 018 2017 Inactive True Metrix Glucose Test Strip RxNorm: 1 Test Strips Miscellaneous QAM 018 2017 Inactive 50/container Calcium 600-D3 Plus 600 mg calcium-800 unit-50 mg tablet RxNorm: 1 Tablet(s) PO daily take an additonal tablet for itching. 018 2017 Inactive hydrochlorothiazide 12.5 mg tablet RxNorm: 937102 1 Tablet(s) PO QAM 018 2017 Inactive Flintstones Complete (iron) 18 mg iron chewable tablet RxNorm: 1 Tablet(s) PO daily 018 2017 Inactive True Metrix Glucose Meter RxNorm: miscellaneous 019 2018 Inactive sertraline 50 mg tablet RxNorm: 981496 1 Tablet(s) PO daily 020 2019 Inactive loperamide 2 mg tablet RxNorm: 631858 oral 019 2018 Inactive d-mannose oral powder RxNorm: PO 018 2021 Inactive Symbicort 160 mcg-4.5 mcg/actuation HFA aerosol inhaler RxNorm: 2701083 2 Puff(s) INH BID 019 2018 Inactive Medication Administered No Medication Administered data Procedures Procedure Codes Date [place]any Assessment CPT-4: DSWA 01/02 Fall Risk Assessment CPT-4: DFRA 01/27/2023 Hypertension CPT-4: HTN 01/27/2023 [place] Assessment /07/12CPT-4: LEMGWntlwhy68/27/2023Fall Risk Assessment Any problems with balance or walking?/No, Has there been a fall with injury in the last year?/No, Two or more falls in the past year?/No, Plan:/Monitor gait and balance PRN, no current action neededCPT-4: CXGOGzhcppy21/27/2023 Hypertension Hypertension Follow Up Plan/Lifestyle modification weight reduction, Hypertension Follow Up Plan/Lifestyle modification including reduce salt intake CPT-4: KLIAlqgxgs93/27/2023atient Health QuestionnaireCPT-4: DPHQ11/23/2022ain ScreeningCPT-4: PAS2022Tobacco Assessment/ScreeningCPT-4: TCA2022 HypertensionCPT-4: HTN08/17/2022emmes Fany AssessmentCPT-4: DSWA04/19/2022 Patient Health QuestionnaireCPT-4: DPHQ04/19/2022nnual Wellness Visit (Subsequent Visit)CPT-4: P528860atient Health QuestionnaireCPT-4: DPHQ 10/07/2021Frailty ScreeningCPT-4: SFD05/20/2021HypertensionCPT-4: HTN04/01/2021 Tobacco Assessment/ScreeningCPT-4: TCA03/13/2021atient Health QuestionnaireCPT- 4: DPHQ03/13/2021Mini Mental State ExamCPT-4: DMMA01/29/2021nnual Wellness Visit (Subsequent Visit)CPT-4: T257529dvanced Care PlanningCPT-4: VACP 01/13/2021Fall Risk AssessmentSNOMED CT: 307721799 CPT-4: DFRA01/13/2021emmes Fany AssessmentCPT-4: DSWA12/17/2020Urinalysis, dip stickCPT-4: 1313911Patient Health QuestionnaireCPT-4: DPHQ 08/19/2020ElectrocardiogramCPT-4: 0033820Tobacco Assessment/Screening CPT-4: TCA01/01/2020Fall Risk AssessmentSNOMED CT: 787826376 CPT-4: DFRA01/01/2020Functional AssessmentCPT-4: DFA01/01/2020Semmes Fany AssessmentCPT-4: DSWA11/28/2019Patient Health QuestionnaireCPT-4: DPHQ11/28/2019 [place] AssessmentCPT-4: DSWA10/17/2019HypertensionCPT-4: HTN10/17/[address]: 953520731 CPT-4: DFRA09/19/2019Functional AssessmentCPT-4: DFA111/20/2018Urinalysis, dip stickCPT-4: 7156723Tobacco Assessment/ScreeningCPT-4: TCA05/24/2019 Patient Health QuestionnaireCPT-4: DPHQ05/24/2019AHA/REBECCA Classification AssessmentCPT-4: DAHA04/25/2019Controlled Substance ReportCPT-4: CTRSU04/25/2019 Urinalysis, dip stickCPT-4: 3656763Urinalysis, dip stickCPT-4: 81497 03/28/20191744V9L-JlcbcntliewtrrzTBD-0: 91507WkhxieyW7S-IkfklbbfuveeinvWRL-4: 76406 PuqdxfzV7J-PnqodwsghppgawbGMH-1: 71259TrincebS3K-IeiujpgsxclzesqCIX-6: 01911 EyqnrkkH8I-LofffkqazhnjaeyXGV-6: 92036TavztilA9I-XfmhyxwrhszhlqnVWO-4: 17905 NmwlsdyF1H-FjszgozhnuywiprHEF-4: 15660XjxibrjO2S-ImldcfemattyqohLQW-3: 85998 WmovuxgF7Z-WlglcbbpodlhvixCEY-1: 33839NtpozeaM2E-NfjlqviygxbdsjzAPH-9: 48159 DoniqjmD6C-GjxkuifbxnoekouMNO-1: 91074YvewfcyC3I-HvpnniocbwvbdogXDN-9: [address]: 893619096 CPT-4: S87Ispxyks Vital Signs Date Vital 01/27/2023 Blood Pressure 1: 100/60 Code: 8480-6 BMI: 81.3 Code: 17368-3 Heart Rate 1: 79 bpm Height: 4' Code: 8302-2 Respiratory Rate: 20 bpm SpO2: 97% Temperature: 36.5 (C) / 97.7 (F) Weight: 266 lbs 8 oz Code: 50610-7 Reason For Visit Reason For Visit Effective Dates Notes gastroesophageal reflux disease 01/27/2023 diabetes mellitus 01/27/2023 hypertension 01/27/2023 depression 01/27/2023 Interim health update 01/27/2023 Encounters Encounter Performer Location Location Address Codes Magdi e ([id number]) Home or Residence Vi sit Est Pt - Moderate Level, 40 mins Diagnosis: Type 2 diabetes mellitus with peripheral neuropathy[ICD10: E11.42] Diagnosis: Hypertensive heart disease[ICD10: I11.9] Diagnosis: Major depression, recurrent[ICD10: F33.9] Diagnosis: Insomnia[ICD10: G47.00] Diagnosis: Adult BMI 50.0-59.9 kg/sq m[ICD10: Z68.43]Anna CulverMallory Udu[address] [place] [address] 64566TSQ-0: 62593 01/27/2023 Plan of Care Planned Activity Notes [...] will continue lisinopril, HCTZ continue with [facility] [employer] Super[employer] Josh Simon MD G47.33 Obstructive sleep apnea (adult), J45.909 Asthma breathing stable, continue utilization of Symbicort, albuterol via neb. or MDI q 4 hrs. prn dyspnea, tolerating CPAP for a few hours nightly continue with Adjunct English Instructor Jose BOWMAN K21.9 GERD (gastroesophageal reflux disease) symptoms improved, will continue omeprazole to 40mg atHS, continue famotidine, probiotic E11.42 Type 2 diabetes mellitus with peripheral neuropathy, Z68.43 Adult BMI 50.0-59.9 kg/sq m testing BS bid, range 99-133 continue Ozempic 1mg per week and gabapentin continue with Kerrie Pandya OD at [facility] trying to be more active, has step goal of 4000 steps daily, also limiting soda intake G47.00-780.52 Insomnia F33.9-296.30 Major depression, recurrent started on trazodone 50mg by Nichole Hernández, psychology for sleep issues patient feels sleep and mood much improved with this medication continue taking sertraline, buspirone Rexulti continue with [facility] in [place] E78.2 Hyperlipidemia, mixed patient has re-started atorvastatin continue Mediterranean style eating E55.9 Vitamin D deficiency continue cholecalciferol refill sent 01/27/2023atient Education: Patient Medication DiofbwySenpvvpsx07/27/2023 Patient Education: PwvomdzySpalkqpsv21/27/2023atient Education: Hypertension Zzwailliz42/27/2023atient Education: OfzovwymomRenmejfzx44/27/2023atient Education: TzoyohpNfweebych58/27/2023ppointment: Anna Culver WPtel: [phone] [place] [address] [id number]: Anna Culver WPtel: [address] [place] [address] [id number]: Anna Culver WPtel: [address] [place] [address] [id number]/17/2021ppointment: Anna Culver WPtel: [address] [place] [address] [id number]: Chivo Bishop WPtel: [address] [place] [address] [id number]: Chivo Bishop WPtel: [address] [place] [address] [id number]: Mikey Nair WPtel: [facility] b [id number]: Chivo Bishop WPtel: [address] [place] [address] [id number]: Chivo Bishop WPtel: [address] [place] [address] [id number]: Chivo Bishop WPtel: [phone] [place] [address] USETV111/11/2020ppointment: Chivo Bishop WPtel: [phone] [place] [address] USETV110/13/2020ppointment: Chivo Bishop WPtel: [phone] [place] [address] USETV1ppointment: Chivo Bishop WPtel: [phone] [place] [address] QSTAIE6206/10/2021ppointment: Anna Culver WPtel: [address] [place] [address] USETV06/02/2021ppointment: Chivo Bishop WPtel: [phone] [place] [address] USETV05/20/2021ppointment: Anna Culver WPtel: [address] [place] [address] USETV04/28/2021ppointment: Chivo Bishop WPtel: [address] [place] [address] USETV04/15/2021ppointment: Anna Culver WPtel: [phone] [place] [address] [id number]: Anna Culver WPtel: [phone] [place] [address] USETV03/24/2021ppointment: Anna Culver WPtel: [phone] [place] [address] USETV03/13/2021ppointment: Anna Culver WPtel: [phone] [facility] [address] [place] [address] [id number]: Chivo Bishop WPtel: [phone] [place] [address] [place] [address] [id number]: Anna Culver WPtel: [phone] [place] [address] USETV01/13/2021ppointment: Anna Culver WPtel: [phone] [place] [address] [place] [address] [id number]: Chivo Bishop WPtel: [address] [place] [address] USETV11/28/2020ppointment: Anna Culver WPtel: [address] [place] [address] USETV11/24/2020ppointment: Anna Culver WPtel: [address] [place] [address] [id number]: Anna Culver WPtel: [address] [place] [address] [id number]: Anna Culver WPtel: [phone] [place] [address] [place] [address] USETV110/26/2019Appointment: Anna Culver WPtel: [phone] [place] [address] [place] [address] USETV110/19/2019Appointment: Anna Culver WPtel: [phone] [place] [address] [place] [address] USETV1Appointment: Anna Culver WPtel: [phone] [place] [address] [place] [address] USETV1Appointment: Gianna Birmingham MCtel: [address] [facility] [address] [id number] FGNHKS5907/02/2020Appointment: Anna Culver WPtel: [address] [place] [address] [address] [address] [id number]: Anna Culver WPtel: [phone] [place] [address] [address] [address] [id number]: Anna Culver WPtel: [phone] [place] [address] [id number]: Anna Culver WPtel: [phone] [place] [address] [id number]: Anna Culver WPtel: [address] [place] [address] [place] [address] [id number]: Anna Culver WPtel: [phone] [place] [address] [id number]: Anna Culver WPtel: [phone] [place] [address] [id number]: Anna Culver WPtel: [phone] [place] [address] [place] [address] [id number]: Anna Culver WPtel: [phone] [place] [address] [id number]: Anna Culver WPtel: [phone] [place] [address] [id number]/20/2018Appointment: Sudha Hernadez WPtel: [address] [facility] [address] [id number]: Sudha Hernadez WPtel: [address] [facility] b [id number]: Charlene Oropeza WPtel: [address] [facility] [address] [id number]: Danny FimodyU26128/26/2019Appointment: Charlene Oropeza WPtel: [address] [facility] b OajuwsEW90047 [id number]: Hasenthilricht, Rasta WPtel: [address] [facility] [id number] [id number]: Haupricht, Rasta WPtel: [address] [facility] [id number] [id number]: Haupricht, Rasta WPtel: [address] [facility] BsfocsTB66799 [id number]: Haupricht, Rasta WPtel: [address] [facility] b [id number]: Pending Gynecology Referral InformationReferral ProcessedReferral: Pending Pulmonology Referral InformationReferralProcessed Referral: Pending Psychiatry Referral InformationReferralInitiatedReferral: Pending Respiratory Services Referral InformationReferralInitiatedReferral: Pending Ophthalmology Referral InformationReferralInitiatedReferral: [facility] WPtel: [address] [place], [place] [id number] USWriter placed a call out to the patient to notify her that it has been recommended that she be seenby a urologist. Patient agreed to be seen, does not have a provider of choice and no transportationissues. [employer] Flight Engineer faxed referral and clinical notes to [facility] in [place], [place] near the patient's home. Patient to [...] seen and prefers a provider in the [place] or [place] area. [employer] Flight Engineer placed a call out to everyone listed in the area and the only location that was able to accept the patient's insurance was [address] [phone] and spoke with Maylin. Maylin asked that the patient's referral, face sheet and visit notes be faxed to . [employer] Engineer faxed over requested documents. Patient appointment confirmation letter generated and mailed to her home address. Patient to call to schedule an appointment.ProcessedReferral: [facility] WPtel: [address] [place], [place] [id number] USPatient notified that it has been advised that she be seen by Neurology. Patient agreed to be seen and prefers to be seen by a provider in the [place], [place] area. Patient denies any concerns with transportation, and prefers to schedule her own appointment. [employer] Flight Engineer placed a call out to [facility] and spoke with Neeraj [...] Podiatry Referral InformationReferralInitiated Instructions Comment Date . Visit time spent involved in medical discussion with patient, including obtaining history from patient, systems review, diagnostic and laboratory test review with patient. Assessment findings and plan reviewed with patient, including time to provide counseling, and education to patient I11.9-402.90 Hypertensive heart disease BP stable, no edema, will continue lisinopril, HCTZ; continue with [employer] Josh Simon MD; G47.33 Obstructive sleep apnea (adult), J45.909 Asthma breathing stable, continue utilization of Symbicort, albuterol via neb. or MDI q 4 hrs. prn dyspnea, tolerating CPAP for a few hours nightly continue with Adjunct English Instructor Jose BOWMAN; K21.9 GERD (gastroesophageal reflux disease) symptoms improved, will continue omeprazole to 40mg at HS, continue famotidine, probiotic; E11.42 Type 2 diabetes mellitus with peripheral neuropathy, Z68.43 Adult BMI 50.0-59.9 kg/sq m testing BS bid, range 99-133 continue Ozempic 1mg per week and gabapentin; continue with Kerrie Pandya OD at [facility] trying to be more active, has step goal of 4000 steps daily, also limiting soda intake G47.00-780.52 Insomnia; F33.9-296.30 Major depression, recurrent started on trazodone 50mg by Nichole Hernández, psychology for sleep issues; patient feels sleep and mood much improved with this medication continue taking sertraline, buspirone; Rexulti continue with [facility] in [place]; E78.2 Hyperlipidemia, mixed patient has re-started atorvastatin continue Mediterranean style eating; E55.9 Vitamin D deficiency continue cholecalciferol refill sent 01/27/2023 Medical Equipment No Medical Equipment data Advance Directives No Advance Directive data
--- OUTSIDE RECORDS SUMMARY | 2023-12-07 02:23 | XMS_ITS | CCD ---
Author Name Leena Culver NP Address [address] [place] [address] [address] [place] [address] Phone Organization [employer] [facility] Phone Care Team Providers Care Auditor Internal Name Role Phone Anna Culver NP Primary Care Provider Unav ailable Unavailable Chronic Care Management Unavaila ble Summary Purpose DataExchange Insurance Providers Payer name Policy type / Coverage type Covered green party ID Effective Begin Date Effective End Date SUKI MAYO [id number] Unknown Unknown Family history Mother Diagnosis Age [...] 05/31/2018 Education level Unknown Some High School 10th05/31/20186859IckbeolilkSqwygpcSjenggmnhg46/29/2018Tobacco historySNOMED CT: [id number] never smoked or chewed [id number]/31/2018Alcohol historySNOMED CT: 766727640Kgowz drinks rlikwpi4205/31/2018Has the patient ever used illegal drugs? UnknownHas never used illegal drugs05/31/2018DNR Order/ Advanced Directive UnknownFull Code05/31/2018 Allergies, Adverse Reactions, Alerts Substance Reaction Codes Entered Date Inactivated Date Status OxyContin itch, RxNorm: 350223 01/13/2021 No Inactive Da te Active *No known food allergies Wyvsufl0909/06/2018No Inactive DateActiveMethylprednisolonehivesRxNorm: 6902 09/06/2018No Inactive DateActive Problems [...] mixedICD-10: E78.2 ICD-9: 272.203/ctiveAllergic rhinitisICD-10: J30.9 ICD-9: 477.903/2ActiveEdema, unspecifiedICD-10: R60.9 ICD-9: [...] 786.0905ResolvedElevated liver enzymesICD-10: R74.8 ICD-9: 790.504/1ResolvedEncounter for screening, unspecifiedICD-10: Z13.9 ICD-9: V82.9111/06/2017ResolvedFamily history [...] Fill Instructions Macrobid 100 mg capsule RxNorm: 699464 1 Capsule(s) Oral every 12 hours with food 023 2022 Inactive omeprazole 40 mg capsule,delayed release RxNorm: 20021111 Take 1 Capsule(s) Oral every night at bedtime 023 2022 Inactive trazodone 50 mg tablet RxNorm: 211033 Administer 1 Tablet(s) Oral every night at bedtime 023 No Stop Date Active cholecalciferol (vitamin D3) 50 mcg (2,000 unit) tablet RxNorm: 424870 Take 1 Tablet(s) Oral every day 023 2023 Active Ozempic 1 mg/dose (4 mg/3 mL) subcutaneous pen injector RxNorm: 6533639 USE 1 UNIT DOSE SUBCUTANEOUSLY ON TUE OF EACH WEEK 023 2022 Inactive lisinopril 2.5 mg tablet RxNorm: 627200 Take 1 Tablet(s) Oral every day 023 2022 Inactive Msg From [facility]: Dr. Zapata Requested Ozempic 1 mg/dose (4 mg/3 mL) subcutaneous pen injector RxNorm: 1774800 USE 1 UNIT DOSE SUBCUTANEOUSLY ON TUE OF EACH WEEK 023 2022 Inactive omeprazole 40 mg capsule,delayed release RxNorm: 20021111 Take 1 Capsule(s) Oral every night at bedtime 023 2022 Inactive gabapentin 300 mg capsule RxNorm: 119675 Take 1 Capsule(s) Oral three times a day 023 2022 Inactive montelukast 10 mg tablet RxNorm: 510506 Take 1 Tablet(s) Oral every day 023 2022 Inactive omeprazole 20 mg capsule,delayed release RxNorm: 841160 Take 1 Capsule(s) Oral every evening 022 2022 Inactive Alcohol Prep Pads RxNorm: 483896 USE EACH MORNING 2021 Inactive E11.42 clotrimazole 1 % topical cream RxNorm: 921679 Apply 1 Application Topical two times a day as needed apply to affected area(s) twice daily until healed 2021 Inactive Victoza 2-Sebastián 0.6 mg/0.1 mL (18 mg/3 mL) subcutaneous pen injector RxNorm: 402370 Inject 0.6-1.8 Milligram(s) Subcutaneous once a week Inject 0.6mg/0.1ml week one, 1.2mg/0.2ml week two, 1.8/0.3ml weekly thereafter 2021 Inactive ibuprofen 800 mg tablet RxNorm: 679319 Take 1 Tablet(s) Oral Q8H as needed for pain take with food No Stop Date Active Ozempic 1 mg/dose (4 mg/3 mL) subcutaneous pen injector RxNorm: 8515622 Take 1 Unit Dose Subcutaneous QWeek Tuesday 022 2021 Inactive lisinopril 2.5 mg tablet RxNorm: 864769 Take 1 Tablet(s) Oral every day 022 2021 Inactive lisinopril 2.5 mg tablet RxNorm: 598002 Take 1 Tablet(s) Oral every day 022 2022 Inactive hydrochlorothiazide 25 mg tablet RxNorm: 508784 Take 1 Tablet(s) Oral every day 022 2021 Inactive Ozempic 1 mg/dose (4 mg/3 mL) subcutaneous pen injector RxNorm: 7709145 Take 1 Unit Dose Subcutaneous QWeek 022 2021 Inactive famotidine 20 mg tablet RxNorm: 756774 Take 1 Tablet(s) Oral every morning 2021 Inactive levothyroxine 50 mcg tablet RxNorm: 688741 Take 1 Tablet(s) Oral every day 022 2021 Inactive atorvastatin 20 mg tablet RxNorm: 780115 Take 1 Tablet(s) Oral every night at bedtime 022 2021 Inactive Cleocin T 1 % lotion RxNorm: 221729 Take 2 Gram(s) Topical every day 022 2021 Inactive Cleocin T 1 % lotion RxNorm: 491069 Take 2 Gram(s) Topical every day 022 2021 Inactive Ozempic 1 mg/dose (4 mg/3 mL) subcutaneous pen injector RxNorm: 5645354 Take 1 Unit Dose Subcutaneous QWeek 022 2021 Inactive Ozempic 0.25 mg or 0.5 mg (2 mg/1.5 mL) subcutaneous pen injector RxNorm: 3115174 INJECT 0.5 MGS SUBCUTANEOUSLY EVERY WEEK 022 2021 Inactive omeprazole 20 mg capsule,delayed release RxNorm: 741182 Take 1 Capsule(s) Oral every evening 2021 Inactive levothyroxine 50 mcg tablet RxNorm: 444730 Take 1 Tablet(s) Oral every day 022 2021 Inactive atorvastatin 20 mg tablet RxNorm: 313615 Take 1 Tablet(s) Oral every night at bedtime 2021 Inactive This refill negates all other refills of this medication lisinopril 2.5 mg tablet RxNorm: 758673 Take 1 Tablet(s) Oral every day 2021 Inactive gabapentin 300 mg capsule RxNorm: 331659 Take 1 Capsule(s) Oral three times a day 022 2021 Inactive montelukast 10 mg tablet RxNorm: 413406 Take 1 Tablet(s) Oral every day 022 2021 Inactive Myrbetriq 50 mg tablet,extended release RxNorm: 1777807 1 Tablet(s) Oral every day No Stop Date Active cholecalciferol (vitamin D3) 50 mcg (2,000 unit) tablet RxNorm: 422247 Take 1 Tablet(s) Oral every day 022 2022 Inactive Ozempic 0.25 mg or 0.5 mg (2 mg/1.5 mL) subcutaneous pen injector RxNorm: 9761376 inject 0.5 milligrams subcutaneously every week 2021 Inactive Ozempic 0.25 mg or 0.5 mg (2 mg/1.5 mL) subcutaneous pen injector RxNorm: 8165877 Take 0.5 Capsule(s) Injection once a week 2021 Inactive omeprazole 20 mg capsule,delayed release RxNorm: 515318 Take 1 Capsule(s) Oral every evening 2020 Inactive Ozempic 0.25 mg or 0.5 mg (2 mg/1.5 mL) subcutaneous pen injector RxNorm: 4839730 Take 0.25 Milligram(s) Subcutaneous once a week 2021 Inactive Easy Touch Alcohol Prep Pads RxNorm: 504660 USE DIRECTED EACH MORNING 2021 Inactive Probiotic 10 billion cell capsule RxNorm: 9542845 Take 1 Capsule(s) Oral every day 2021 Inactive levothyroxine 50 mcg tablet RxNorm: 186107 Take 1 Tablet(s) Oral every day 2020 Inactive Acid Manager Logistic (famotidine) 20 mg tablet RxNorm: 635128 Take 1 Tablet(s) Oral every morning 2020 Inactive Heartburn Relief (famotidine) 10 mg tablet RxNorm: 409446 Take 1 Tablet(s) Oral QAM 2020 Inactive levothyroxine 50 mcg tablet RxNorm: 614244 Take 1 Tablet(s) Oral QD 2020 Inactive Singulair 10 mg tablet RxNorm: 850340 TAKE (1) TABLET BY MOUTH DAILY 2020 Inactive metformin 1,000 mg tablet RxNorm: 815293 1 Tablet(s) Oral two times a day 2021 Inactive lisinopril 2.5 mg tablet RxNorm: 787397 Take 1 Tablet(s) Oral every day 021 2020 Inactive hydrochlorothiazide 25 mg tablet RxNorm: 814884 Take 1 Tablet(s) Oral every day 021 2020 Inactive ondansetron 4 mg disintegrating tablet RxNorm: 678671 1 Tablet(s) Oral two times a day 021 2020 Inactive Sudafed 12 Hour 120 mg tablet,extended release RxNorm: 0359612 TAKE 1 TABLET BY MOUTH EVERY 12 HOURS NEEDED 021 2021 Inactive Heartburn Relief (famotidine) 10 mg tablet RxNorm: 236257 Take 1 Tablet(s) Oral every morning 021 2020 Inactive omeprazole 20 mg capsule,delayed release RxNorm: 196114 1 Capsule(s) Oral every evening 021 2020 Inactive sertraline 100 mg tablet RxNorm: 864441 2 Tablet(s) Oral every day 021 2020 Inactive levothyroxine 50 mcg tablet RxNorm: 276662 TAKE (1) TABLET BY MOUTH DAILY 021 2020 Inactive metformin 500 mg tablet RxNorm: 970422 1 Tablet(s) Oral two times a day take with 500mg to equal 1000mg 021 2020 Inactive gabapentin 300 mg capsule RxNorm: 990542 TAKE 1 CAPSULE BY MOUTH THREE TIMES A DAY 021 2020 Inactive lisinopril 2.5 mg tablet RxNorm: 981188 TAKE 1 TABLET BY MOUTH DAILY 021 2020 Inactive gabapentin 300 mg capsule RxNorm: 634933 TAKE 1 CAPSULE BY MOUTH THREE TIMES A DAY 021 2020 Inactive Singulair 10 mg tablet RxNorm: 794057 TAKE (1) TABLET BY MOUTH DAILY 021 2020 Inactive metformin 1,000 mg tablet RxNorm: 254778 1 Tablet(s) Oral two times a day 2020 Inactive atorvastatin 40 mg tablet RxNorm: 593996 1 Tablet(s) Oral every day 2020 Inactive omeprazole 20 mg capsule,delayed release RxNorm: 264795 1 Capsule(s) Oral every evening 2020 Inactive famotidine 10 mg tablet RxNorm: 776235 1 Tablet(s) Oral every morning 2020 Inactive Alcohol Prep Pads RxNorm: 045188 USE EACH MORNING 2020 Inactive omeprazole 20 mg capsule,delayed release RxNorm: 444493 1 Capsule(s) Oral two times a day 2021 Inactive omeprazole 20 mg capsule,delayed release RxNorm: 452710 TAKE 1 CAPSULE BY MOUTH EVERY DAY 2021 Inactive Macrobid 100 mg capsule RxNorm: 404913 1 Capsule(s) Oral every 12 hours with food 2020 Inactive omeprazole 20 mg capsule,delayed release RxNorm: 235208 1 Capsule(s) Oral two times a day 2021 Inactive metformin 1,000 mg tablet RxNorm: 704398 1 Tablet(s) Oral two times a day 2020 Inactive start on September 11, 2020 metformin 500 mg tablet RxNorm: 999969 1 Tablet(s) Oral two times a day take with 500mg to equal 1000mg 2019 Inactive gabapentin 300 mg capsule RxNorm: 767161 TAKE 1 CAPSULE BY MOUTH THREE TIMES DAILY 2020 Inactive cetirizine 10 mg tablet RxNorm: 8840649 TAKE (1) TABLET BY MOUTH DAILY 2020 Inactive metformin 500 mg tablet RxNorm: 697521 1 Tablet(s) Oral two times a day 2019 Inactive loperamide 2 mg tablet RxNorm: 008155 1 Tablet(s) Oral as needed take one tablet after each loose stool, maximum of 8 tablets in 24 hours 2021 Inactive Sudafed 12 Hour 120 mg tablet,extended release RxNorm: 4850034 TAKE 1 TABLET BY MOUTH EVERY 12 HOURS NEEDED 2019 Inactive hydrochlorothiazide 25 mg tablet RxNorm: 302411 TAKE (1) TABLET BY MOUTH EVERY DAY 020 2019 Inactive omeprazole 20 mg capsule,delayed release RxNorm: 636746 TAKE 1 CAPSULE BY MOUTH EVERY DAY 020 2020 Inactive metformin 500 mg tablet RxNorm: 384222 1 Tablet(s) Oral every day 2019 Inactive True Metrix Glucose Test Strip RxNorm: 1 Test Strips Miscellaneous two times a day as needed No Stop Date Active metformin 500 mg tablet RxNorm: 805766 1 Tablet(s) Oral every day 2019 Inactive diclofenac sodium 75 mg tablet,delayed release RxNorm: 610475 1 Tablet(s) PO BID 2021 Inactive This refill negates all other refills of this medication Sudafed 12 Hour 120 mg tablet,extended release RxNorm: 0739446 TAKE 1 TABLET BY MOUTH EVERY 12 HOURS NEEDED 020 2019 Inactive True Metrix Glucose Test Strip RxNorm: 1 Test Strips Miscellaneous every morning 020 2019 Inactive 100/container True Metrix Glucose Test Strip RxNorm: 1 Test Strips Miscellaneous [facility] 020 2019 Inactive 100/container loperamide 2 mg tablet RxNorm: 780917 1 Tablet(s) Oral as needed take one tablet after each loose stool, maximum of 8 tablets in 24 hours 020 2019 Inactive cetirizine 10 mg tablet RxNorm: 5791707 1 Tablet(s) PO daily 020 2019 Inactive loperamide 2 mg tablet RxNorm: 506069 1 Tablet(s) Oral as needed take one tablet after each loose stool, maximum of 8 tablets in 24 hours 020 2019 Inactive quetiapine 100 mg tablet RxNorm: 470166 1 Tablet(s) Oral every night at bedtime 2019 Inactive levothyroxine 50 mcg tablet RxNorm: 663386 1 Tablet(s) PO daily 020 2020 Inactive gabapentin 300 mg capsule RxNorm: 582191 1 Capsule(s) PO TID 2019 Inactive levothyroxine 50 mcg tablet RxNorm: 538650 1 Tablet(s) PO daily 2019 Inactive lisinopril 2.5 mg tablet RxNorm: 833100 1 Tablet(s) PO daily 2020 Inactive gabapentin 300 mg capsule RxNorm: 259808 1 Capsule(s) PO TID 2019 Inactive cetirizine 10 mg tablet RxNorm: 5705289 1 Tablet(s) PO daily 2019 Inactive Singulair 10 mg tablet RxNorm: 021236 1 Tablet(s) PO daily 2020 Inactive gentamicin 0.3 % eye drops RxNorm: 124611 1 Drop(s) ophthalmic (eye) four times a day 2019 Inactive gentamicin 0.3 % eye drops RxNorm: 211245 1 Drop(s) ophthalmic (eye) four times a day 2019 Inactive gentamicin 0.3 % eye drops RxNorm: 243141 1 Drop(s) ophthalmic (eye) four times a day 2019 Inactive hydrochlorothiazide 25 mg tablet RxNorm: 458139 1 Tablet(s) Oral every day 2019 Inactive Sudafed 12 Hour 120 mg tablet,extended release RxNorm: 7297433 TAKE (1) TABLET BY MOUTH EVERY 12 HOURS NEEDED 2019 Inactive loperamide 2 mg tablet RxNorm: 425593 1 Tablet(s) Oral as needed take one tablet after each loose stool, maximum of 8 tablets in 24 hours 2019 Inactive loperamide 2 mg tablet RxNorm: 991586 1 Tablet(s) Oral as needed take one tablet after each loose stool, maximum of 8 tablets in 24 hours 2019 Inactive atorvastatin 40 mg tablet RxNorm: 517461 1 Tablet(s) Oral every day 2020 Inactive quetiapine 100 mg tablet RxNorm: 543392 1 Tablet(s) Oral every night at bedtime 2019 Inactive sertraline 100 mg tablet RxNorm: 498065 1 Tablet(s) Oral 2019 Inactive omeprazole 20 mg capsule,delayed release RxNorm: 339605 1 Capsule(s) Oral every day 2019 Inactive amoxicillin 250 mg capsule RxNorm: 626128 1 Capsule(s) Oral three times a day 2019 Inactive multivitamin with iron-mineral tablet RxNorm: 1 Tablet(s) Oral every day 2021 Inactive cetirizine 10 mg tablet RxNorm: 7027487 1 Tablet(s) PO daily 2019 Inactive This refill negates all other refills of this medication. Please do not auto refill Singulair 10 mg tablet RxNorm: 770612 1 Tablet(s) PO daily 2019 Inactive This refill negates all other refills of this medication gabapentin 300 mg capsule RxNorm: 401569 1 Capsule(s) PO TID 2019 Inactive lisinopril 2.5 mg tablet RxNorm: 263602 1 Tablet(s) PO daily 2019 Inactive levothyroxine 50 mcg tablet RxNorm: 127702 1 Tablet(s) PO daily 2019 Inactive This refill negates all other refills of this medication hydrochlorothiazide 25 mg tablet RxNorm: 992386 1 Tablet(s) Oral every day 2019 Inactive fenugreek seed extract 500 mg capsule RxNorm: 1 Capsule(s) Oral three times a day 020 2021 Inactive Alcohol Prep Pads RxNorm: 684634 1 Patch TOP QAM 020 2020 Inactive loperamide 2 mg tablet RxNorm: 578572 1 Tablet(s) Oral as needed take one [...] 2019 Inactive hydrochlorothiazide 25 mg tablet RxNorm: 823574 1 Tablet(s) Oral every day 2019 Inactive Sudafed 12 Hour 120 mg tablet,extended release RxNorm: 7334867 1 Tablet(s) Oral every 12 hours as needed 019 2018 Inactive omeprazole 20 mg capsule,delayed release RxNorm: 466863 1 Capsule(s) Oral every day 2019 Inactive Sudafed 12 Hour 120 mg tablet,extended release RxNorm: 8120324 1 Tablet(s) Oral every 12 hours as needed 2018 Inactive pantoprazole 40 mg tablet,delayed release RxNorm: 460508 1 Tablet(s) Oral every day 2018 Inactive discontinue any other H2Blkr. and PPI albuterol sulfate 2.5 mg/3 mL (0.083 %) solution for nebulization RxNorm: 528627 1 Vial Inhalation every four hours as needed as needed for dyspnea 2019 Inactive 60/box. This refill negates all other refills of this medication. Please do not fill early. Please do not auto refill. Symbicort 160 mcg-4.5 mcg/actuation HFA aerosol inhaler RxNorm: 9597019 2 Puff(s) INH BID No Stop Date Active Alcohol Prep Pads RxNorm: 942322 1 Patch TOP QAM 019 2019 Inactive Ventolin HFA 90 mcg/actuation aerosol inhaler RxNorm: 594686 2 Puff(s) INH QID 019 2019 Inactive Please do not fill early. Please do not auto refill. This refill negates all other refills of this medication True Metrix Glucose Test Strip RxNorm: 1 Test Strips Miscellaneous QAM 019 2019 Inactive 100/container atorvastatin 40 mg tablet RxNorm: 330163 1 Tablet(s) Oral every day 019 2019 Inactive buspirone 7.5 mg tablet RxNorm: 436271 1 Tablet(s) PO BID 019 2020 Inactive This refill negates all other refills of this medication hydrochlorothiazide 12.5 mg tablet RxNorm: 322134 1 Tablet(s) PO QAM 019 2019 Inactive levmetamfetamine 50 mg nasal inhaler RxNorm: 1 Unit(s) NASAL Q3-4H Do not use more than every 3 hours or 8 times/24hours 019 2021 Inactive Please do not auto refill. This refill negates all other refills of this medication Ventolin HFA 90 mcg/actuation aerosol inhaler RxNorm: 229602 2 Puff(s) INH QID 019 2018 Inactive Please do not fill early. Please do not auto refill. This refill negates all other refills of this medication Singulair 10 mg tablet RxNorm: 085956 1 Tablet(s) PO daily 019 2019 Inactive This refill negates all other refills of this medication cetirizine 10 mg tablet RxNorm: 0614079 1 Tablet(s) PO daily 019 2019 Inactive This refill negates all other refills of this medication. Please do not auto refill levothyroxine 50 mcg tablet RxNorm: 155318 1 Tablet(s) PO daily 2019 Inactive This refill negates all other refills of this medication diclofenac sodium 75 mg tablet,delayed release RxNorm: 239784 1 Tablet(s) PO BID 2019 Inactive This refill negates all other refills of this medication ranitidine 150 mg tablet RxNorm: 700228 1 Tablet(s) PO BID 019 2018 Inactive This refill negates all other refills of this medication Calcium 600-D3 Plus (mag-zinc) 600 mg calcium-800 unit-50 mg tablet RxNorm: 1 Tablet(s) PO daily take an additonal tablet for itching. 2018 Inactive This refill negates all other refills of this medication albuterol sulfate 2.5 mg/3 mL (0.083 %) solution for nebulization RxNorm: 802874 1 Vial INH QID 2018 Inactive 60/box. This refill negates all other refills of this medication. Please do not fill early. Please do not auto refill. lisinopril 2.5 mg tablet RxNorm: 375923 1 Tablet(s) PO daily 2019 Inactive gabapentin 300 mg capsule RxNorm: 456603 1 Capsule(s) PO TID 019 2019 Inactive atorvastatin 20 mg tablet RxNorm: 111147 1 Tablet(s) PO QHS 2018 Inactive This refill negates all other refills of this medication TRUEplus Lancets 30 gauge RxNorm: 1 Lancets Miscellaneous QAM 2018 Inactive 100/box gabapentin 300 mg capsule RxNorm: 955989 1 Capsule(s) PO TID 019 2018 Inactive Flintstones Complete (iron) 18 mg iron chewable tablet RxNorm: 1 Tablet(s) PO daily /01/ 2022 Inactive This refill negates all other refills of this medication gabapentin 300 mg capsule RxNorm: 452763 1 Capsule(s) PO TID as needed 019 2018 Inactive True Metrix Glucose Test Strip RxNorm: 1 Test Strips Miscellaneous QAM 019 2018 Inactive 100/container Alcohol Prep Pads RxNorm: 931732 1 Patch TOP QAM 019 2018 Inactive TRUEplus Lancets 30 gauge RxNorm: 1 Lancets Miscellaneous QAM 019 2018 Inactive 100/box lisinopril 2.5 mg tablet RxNorm: 704280 1 Tablet(s) PO daily 019 2018 Inactive ranitidine 150 mg tablet RxNorm: 475904 1 Tablet(s) PO BID 019 2018 Inactive This refill negates all other refills of this medication albuterol sulfate 2.5 mg/3 mL (0.083 %) solution for nebulization RxNorm: 013050 1 Vial INH QID 019 2018 Inactive [...] this medication gabapentin 300 mg capsule RxNorm: 447150 1 Capsule(s) PO TID as needed 019 2018 Inactive atorvastatin 20 mg tablet RxNorm: 281077 1 Tablet(s) PO QHS 019 2018 Inactive This refill negates all other refills of this medication trazodone 50 mg tablet RxNorm: 107355 1 Tablet(s) PO QHS 019 2018 Inactive This refill negates all other refills of this medication Ventolin HFA 90 mcg/actuation aerosol inhaler RxNorm: 487113 2 Puff(s) INH QID 019 2018 Inactive Please do not fill early. Please do not auto refill. This refill negates all other refills of this medication Calcium 600-D3 Plus 600 mg calcium-800 unit-50 mg tablet RxNorm: 1 Tablet(s) PO daily take an additonal tablet for itching. 019 2018 Inactive This refill negates all other refills of this medication Singulair 10 mg tablet RxNorm: 706137 1 Tablet(s) PO daily 019 2018 Inactive This refill negates all other refills of this medication buspirone 7.5 mg tablet RxNorm: 884913 1 Tablet(s) PO BID 019 2018 Inactive This refill negates all other refills of this medication diclofenac sodium 75 mg tablet,delayed release RxNorm: 967397 1 Tablet(s) PO BID 019 2018 Inactive This refill negates all other refills of this medication hydrochlorothiazide 12.5 mg tablet RxNorm: 681238 1 Tablet(s) PO QAM 019 2018 Inactive metoprolol succinate ER 50 mg tablet,extended release 24 hr RxNorm: 296268 1 Tablet(s) PO daily 019 2018 Inactive This refill negates all other refills of this medication levothyroxine 50 mcg tablet RxNorm: 191483 1 Tablet(s) PO daily 019 2018 Inactive This refill negates all other refills of this medication cetirizine 10 mg tablet RxNorm: 7841218 1 Tablet(s) PO daily 019 2018 Inactive This refill negates all other refills of this medication. Please do not auto refill Flintstones Complete (iron) 18 mg iron chewable tablet RxNorm: 1 Tablet(s) PO daily 019 2018 Inactive This refill negates all other refills of this medication buspirone 7.5 mg tablet RxNorm: 447935 1 Tablet(s) PO BID 019 2018 Inactive cetirizine 10 mg tablet RxNorm: 7607499 1 Tablet(s) PO daily 2018 Inactive Guaiasorb DM 10 mg-100 mg/5 mL oral liquid RxNorm: 181603 10 Milliliter(s) PO As needed every 4 hr 2018 Inactive Vicks Vaporub 4.7 %-1.2 %-2.6 % topical ointment RxNorm: 8405971 1 Application TOP TID 2018 Inactive levmetamfetamine 50 mg nasal inhaler RxNorm: 1 Unit(s) NASAL Q3-4H 2017 Inactive sertraline 50 mg tablet RxNorm: 902565 1 Tablet(s) PO daily 2018 Inactive Please note dose trazodone 50 mg tablet RxNorm: 903621 1 Tablet(s) PO QHS 2018 Inactive sertraline 50 mg tablet RxNorm: 114178 1 Tablet(s) PO daily 2017 Inactive amoxicillin 500 mg tablet RxNorm: 133141 1 Tablet(s) PO Q12H 2017 Inactive albuterol sulfate 2.5 mg/3 mL (0.083 %) solution for nebulization RxNorm: 730168 1 Vial INH QID 2018 Inactive 60/box. Please do not fill early. Please do not auto refill. Prozac 10 mg capsule RxNorm: 479755 1 Capsule(s) PO daily 2017 Inactive buspirone 7.5 mg tablet RxNorm: 207469 1 Tablet(s) PO BID 018 2018 Inactive gabapentin 300 mg capsule RxNorm: 362743 1 Capsule(s) PO TID as needed 2018 Inactive hydrochlorothiazide 12.5 mg tablet RxNorm: 042179 1 Tablet(s) PO QAM 018 2018 Inactive ranitidine 150 mg tablet RxNorm: 210966 1 Tablet(s) PO BID 018 2018 Inactive Macrobid 100 mg capsule RxNorm: 990753 1 Capsule(s) PO Q12H 018 2017 Inactive Singulair 10 mg tablet RxNorm: 304231 1 Tablet(s) PO daily 018 2018 Inactive Ventolin HFA 90 mcg/actuation aerosol inhaler RxNorm: 8834814 2 Puff(s) INH QID 018 2018 Inactive Singulair 10 mg tablet RxNorm: 015299 1 Tablet(s) PO daily 018 2017 Inactive buspirone 7.5 mg tablet RxNorm: 722082 1 Tablet(s) PO BID 018 2017 Inactive Prozac 10 mg capsule RxNorm: 770391 1 Capsule(s) PO daily 018 2017 Inactive diclofenac sodium 75 mg tablet,delayed release RxNorm: 528903 1 Tablet(s) PO BID 018 2017 Inactive lisinopril 2.5 mg tablet RxNorm: 477673 1 Tablet(s) PO daily 018 2017 Inactive Neilmed Pediatric Sinus Rinse Refill packet RxNorm: 1 Unit Dose NASAL PRN 018 2021 Inactive metoprolol succinate ER 50 mg tablet,extended release 24 hr RxNorm: 336454 1 Tablet(s) PO daily 018 2017 Inactive levothyroxine 50 mcg tablet RxNorm: 539639 1 Tablet(s) PO daily 018 2017 Inactive TRUEplus Lancets 30 gauge RxNorm: 1 Lancets Miscellaneous QAM 018 2017 Inactive 100/box Ventolin HFA 90 mcg/actuation aerosol inhaler RxNorm: 295981 2 Puff(s) INH QID 018 2017 Inactive Aleve 220 mg capsule RxNorm: 6471910 1 Capsule(s) PO BID 018 2018 Inactive ranitidine 150 mg tablet RxNorm: 057978 1 Tablet(s) PO BID 018 2017 Inactive gabapentin 300 mg capsule RxNorm: 912588 1 Capsule(s) PO TID as needed 018 2017 Inactive atorvastatin 20 mg tablet RxNorm: 401802 1 Tablet(s) PO QHS 018 2017 Inactive True Metrix Glucose Test Strip RxNorm: 1 Test Strips Miscellaneous QAM 018 2017 Inactive 50/container Calcium 600-D3 Plus 600 mg calcium-800 unit-50 mg tablet RxNorm: 1 Tablet(s) PO daily take an additonal tablet for itching. 018 2017 Inactive hydrochlorothiazide 12.5 mg tablet RxNorm: 457869 1 Tablet(s) PO QAM 018 2017 Inactive Flintstones Complete (iron) 18 mg iron chewable tablet RxNorm: 1 Tablet(s) PO daily 018 2017 Inactive True Metrix Glucose Meter RxNorm: miscellaneous 019 2018 Inactive sertraline 50 mg tablet RxNorm: 786935 1 Tablet(s) PO daily 020 2019 Inactive loperamide 2 mg tablet RxNorm: [id number] oral 019 2018 Inactive d-mannose oral powder RxNorm: PO 018 2021 Inactive Symbicort 160 mcg-4.5 mcg/actuation HFA aerosol inhaler RxNorm: 3571895 2 Puff(s) INH BID 019 2018 Inactive Medication Administered No Medication Administered data Procedures Procedure Codes Date [place] Assessment CPT-4: DSWA 01/02 Fall Risk Assessment CPT-4: DFRA 01/27/2023 Hypertension CPT-4: HTN 01/27/2023 Patient Health Questionnaire CPT-4: DPHQ Pain Screening CPT-4: PAS 2022 Tobacco Assessment/Screening CPT-4: TCA Hypertension CPT-4: HTN 08/17/2022 [place] F[place] Assessment CPT-4: DSWA 04/02 Patient Health [...] CPT-4: VACP Fall Risk Assessment SNOMED CT: 95952747 4 CPT-4: DFRA01/13/2021emmes Fany AssessmentCPT-4: DSWA12/17/2020Urinalysis, dip stickCPT-4: 390928509/24/2020Patient Health QuestionnaireCPT-4: DPHQ 08/19/2020ElectrocardiogramCPT-4: 963181105/14/2020Tobacco Assessment/Screening CPT-4: TCA01/01/2020Fall Risk AssessmentSNOMED CT: 487787965 CPT-4: DFRA01/01/2020Functional AssessmentCPT-4: DFA01/01/2020Semmes Fany AssessmentCPT-4: DSWA11/28/2019Patient Health QuestionnaireCPT-4: DPHQ11/28/2019 [place] F[place] AssessmentCPT-4: DSWA10/17/2019HypertensionCPT-4: HTN10/17/[address]: 870469163 CPT-4: DFRA09/19/2019Functional AssessmentCPT-4: DFA111/20/2018Urinalysis, dip stickCPT-4: 3507214Tobacco Assessment/ScreeningCPT-4: TCA05/24/2019 Patient Health QuestionnaireCPT-4: DPHQ08AHA/REBECCA Classification AssessmentCPT-4: DAHA04/25/2019Controlled Substance ReportCPT-4: CTRSU04/25/2019 Urinalysis, dip stickCPT-4: 733082303/28/2019Urinalysis, dip stickCPT-4: 76720 03/28/20197466Q2P-LfzumbtobkarvjwYKA-2: 40332LafetjiL1A-OvsivqzmjlrsalcFIB-3: 74270 JyyuqunH0D-AqqwrjoxmlhehlqHZO-4: 26062RxorfqgD3L-FbeqvlnzybxvdtqPUT-3: 78904 AqrldkgQ2X-YnfmujibtbatniwRLR-4: 95708JdwpordR9U-RbcuvvlgifpeitjUXY-7: 80037 QxcktqnA9R-XqdiubcnigcgcvzAOB-7: 78683IgbxhjwO5A-AbuohlfiahxgozhIKY-1: 70418 DvzkvbqL2C-VjepgajwfzqmnvuOCB-9: 50912HemhyywR8O-UsrerzcpmlqojwoIVF-3: 98989 AsxmdnbN2W-XgtapcwfrpthlypZBR-5: 05738FzjstudT0D-TkslicxmclnvdoaTMN-9: 29939 UnknownGynecology ReferralSBOSTON NURS[facility] FOR [facility] CT: 826584956 CPT-4: K35Tnlbezw Reason For Visit No Reason For Visit data Plan of Care Planned Activity Notes Codes Status Date Patient Education: Patient Medication Summary Tsjbenxjr68/29/2023ppointment: Anna Culver WPtel: [address] [place] [address] [id number]: Anna Culver WPtel: [address] [place] [address] [id number]: Anna Culver WPtel: [address] [place] [address] [id number]: Anna Culver WPtel: [address] [place] [address] [id number]/17/2021ppointment: Anna Culver WPtel: [phone] [place] [address] [id number]: Chivo Bishop WPtel: [phone] [place] [address] [id number]: Chivo Bishop WPtel: [address] [place] [address] [id number]: Mikey Nair WPtel: [address] [facility] [id number]: Chivo Bishop WPtel: [address] [place] [address] [id number]: Chivo Bishop WPtel: [address] [place] [address] [id number]: Chivo Bishop WPtel: [address] [place] [address] USETV111/11/2020ppointment: Chivo Bishop WPtel: [address] [place] [address] USETV110/13/2020ppointment: Chivo Bishop WPtel: [address] [place] [address] USETV1ppointment: Chivo Bishop WPtel: [address] [place] [address] ZKXDLX5506/10/2021ppointment: Anna Culver WPtel: [phone] [place] [address] USETV06/02/2021ppointment: Chivo Bishop WPtel: [address] [facility] [address] [place] [address] USETV05/20/2021ppointment: Anna Culver WPtel: [phone] [place] [address] [place] [address] USETV04/28/2021ppointment: Chivo Bishop WPtel: [phone] [place] [address] USETV04/15/2021ppointment: Anna Culver WPtel: [phone] [place] [address] [id number]: Anna Culver WPtel: [phone] [place] [address] USETV03/24/2021ppointment: Anna Culver WPtel: [phone] [place] [address] [place] [address] USETV03/13/2021ppointment: Anna Culver WPtel: [phone] [place] [address] [place] [address] [id number]: Chivo Bishop WPtel: [phone] [place] [address] [place] [address] [id number]: Anna Culver WPtel: [phone] [place] [address] [place] [address] USETV01/13/2021ppointment: Anna Culver WPtel: [phone] [place] [address] [place] [address] [id number]: Chivo Bishop WPtel: [phone] [place] [address] [place] [address] USETV11/28/2020ppointment: Anna Culver WPtel: [phone] [place] [address] [place] [address] USETV02ppointment: Anna Culver WPtel: [phone] [place] [address] [id number]: Anna Culver WPtel: [phone] [place] [address] PCZ5862011/25/2019Appointment: Anna Culver WPtel: [phone] [place] [address] USETV110/26/2019Appointment: Anna Culver WPtel: [phone] [place] [address] USETV110/19/2019Appointment: Anna Culver WPtel: [address] [place] [address] USETV1Appointment: Anna Culver WPtel: [address] [place] [address] USETV1Appointment: Gianna [place] [facility] 100 [id number] WRLZCS6507/02/2020Appointment: Anna Culver WPtel: [phone] [place] [address] [id number]: Anna Culver WPtel: [phone] [place] [address] DVX33117/09/2020Appointment: Anna Culver WPtel: [address] [place] [address] [id number]/Appointment: Anna Culver WPtel: [phone] [place] [address] [place] [address] [id number]: Anna Culver WPtel: [address] [place] [address] [id number]: Anna Culver WPtel: [address] [place] [address] [id number]: Anna Culver WPtel: [phone] [place] [address] [id number]: Anna Culver WPtel: [address] [place] [address] [id number]: Anna Culver WPtel: [address] [place] [address] [id number]: Anna Culver WPtel: [address] [place] [address] [id number]: Sudha Hernadez WPtel: [address] [facility] [address] [id number]: Sudha Hernadez WPtel: [address] [facility] [address] [id number]: Charlene Oropeza WPtel: [address] [facility] [address] [id number]: Enedelia Delgado45Appointment: Charlene Oropeza WPtel: [address] [facility] [address] [id number]: Rasta Palafox WPtel: [address] [facility] [address] [id number]: Rasta Palafox WPtel: [address] [facility] [address] [id number]: Rasta Palafox WPtel: [address] [facility] [address] [id number]: Rasta Palafox WPtel: [address] [facility] [address] [id number]: Pending Gynecology Referral InformationReferral ProcessedReferral: Pending Pulmonology Referral InformationReferralProcessed Referral: Pending Psychiatry Referral InformationReferralInitiatedReferral: Pending Respiratory Services Referral InformationReferralInitiatedReferral: Pending Ophthalmology Referral InformationReferralInitiatedReferral: [facility] WPtel: [address] [facility] [address] [facility] USWriter placed a call out to the patient to notify her that it has been recommended that she be seenby a urologist. Patient agreed to be seen, does not have a provider of choice and no transportationissues. [employer]ible Bab[employer]itter faxed referral and clinical notes to [facility] in [place], [place] near the patient's home. Patient to [...] seen and prefers a provider in the [place] or [place] area. [employer]itter placed a call out to everyone listed in the area and the only location that was able to accept the patient's insurance was [facility] [place] [address] and spoke with Maylin. Maylin asked that the patient's referral, face sheet and visit notes be faxed to . [employer] faxed over requested documents. Patient appointment confirmation letter generated and mailed to her home address. Patient to call to schedule an appointment.ProcessedReferral: [facility] WPtel: [address] [facility] [address] [id number] USPatient notified that it has been advised that she be seen by Neurology. Patient agreed to be seen and prefers to be seen by a provider in the [place], [place] area. Patient denies any concerns with transportation, and prefers to schedule her own appointment. [employer]itter placed a call out to [facility] and spoke with Neeraj P: who confirmed that their office is able to acceptnew patients and the patient's insurance. After confirming the providers fax number, senior technical writer faxed over the patient's referral, [...]
--- OUTSIDE RECORDS SUMMARY | 2024-01-03 23:26 | XMS_ITS | CCD ---
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 Name Role Phone Palomo KING, Anna Primary Care Provider Unav ailable Unavailable Chronic Care Management Unavaila ble Summary Purpose DataExchange Insurance Providers Payer name Policy type / Coverage type Covered green party ID Effective Begin Date Effective End Date [facility] [id number] Unknown Unknown Family history Mother Diagnosis Age [...] 05/31/2018 Education level Unknown Some High School 10th05/31/20188491BsfjzzkfziQkndyvrRoygtdcvik18/29/2018Tobacco historySNOMED CT: [id number] never smoked or chewed [id number]/31/2018Alcohol historySNOMED CT: [id number] drinks wldumaz4305/31/2018Has the patient ever used illegal drugs? UnknownHas never used illegal drugs05/31/2018DNR Order/ Advanced Directive UnknownFull Code05/31/2018 Allergies, Adverse Reactions, Alerts Substance Reaction Codes Entered Date Inactivated Date Status OxyContin itch, RxNorm: 266468 01/13/2021 No Inactive Da te Active *No known food allergies Iczrqaz1309/06/2018No Inactive DateActiveMethylprednisolonehivesRxNorm: 6902 09/06/2018No Inactive DateActive Problems [...] examinationICD-10: Z01.810 ICD-9: V72.8106/InactiveHeadacheICD-10: R51 ICD-9: 784.001/10/2018InactiveOther longshore equipment operator (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ICD-10: Z79.899 ICD-9: V58.6907/InactiveType [...] Fill Instructions famotidine 20 mg tablet RxNorm: 699564 Take 1 Tablet(s) Oral every morning 023 2022 Inactive levothyroxine 50 mcg tablet RxNorm: 032848 Take 1 Tablet(s) Oral every day 023 2023 [facility] Requested hydrochlorothiazide 25 mg tablet RxNorm: 109191 Take 1 Tablet(s) Oral every day 023 2023 Active Msg From [facility]: Approval Requested atorvastatin 20 mg tablet RxNorm: 180609 Take 1 Tablet(s) Oral every night at bedtime 023 2023 Active Macrobid 100 mg capsule RxNorm: 823420 1 Capsule(s) Oral every 12 hours with food 023 2022 Inactive omeprazole 40 mg capsule,delayed release RxNorm: 601646 Take 1 Capsule(s) Oral every night at bedtime 023 2022 Inactive trazodone 50 mg tablet RxNorm: 296067 Administer 1 Tablet(s) Oral every night at bedtime 023 No Stop Date Active cholecalciferol (vitamin D3) 50 mcg (2,000 unit) tablet RxNorm: 906426 Take 1 Tablet(s) Oral every day 023 2023 Active Ozempic 1 mg/dose (4 mg/3 mL) subcutaneous pen injector RxNorm: 4995091 USE 1 UNIT DOSE SUBCUTANEOUSLY ON TUE OF EACH WEEK 023 2022 Inactive lisinopril 2.5 mg tablet RxNorm: 683902 Take 1 Tablet(s) Oral every day 023 2022 [facility] Requested Ozempic 1 mg/dose (4 mg/3 mL) subcutaneous pen injector RxNorm: 7086671 USE 1 UNIT DOSE SUBCUTANEOUSLY ON TUE OF EACH WEEK 023 2022 Inactive omeprazole 40 mg capsule,delayed release RxNorm: 615429 Take 1 Capsule(s) Oral every night at bedtime 023 2022 Inactive gabapentin 300 mg capsule RxNorm: 670576 Take 1 Capsule(s) Oral three times a day 023 2022 Inactive montelukast 10 mg tablet RxNorm: 139340 Take 1 Tablet(s) Oral every day 023 2022 Inactive omeprazole 20 mg capsule,delayed release RxNorm: 167742 Take 1 Capsule(s) Oral every evening 022 2022 Inactive Alcohol Prep Pads RxNorm: 622288 USE EACH MORNING 022 2021 Inactive E11.42 clotrimazole 1 % topical cream RxNorm: 294707 Apply 1 Application Topical two times a day as needed apply to affected area(s) twice daily until healed 2021 Inactive Victoza 2-Sebastián 0.6 mg/0.1 mL (18 mg/3 mL) subcutaneous pen injector RxNorm: 845223 Inject 0.6-1.8 Milligram(s) Subcutaneous once a week Inject 0.6mg/0.1ml week one, 1.2mg/0.2ml week two, 1.8/0.3ml weekly thereafter 022 2021 Inactive ibuprofen 800 mg tablet RxNorm: 900208 Take 1 Tablet(s) Oral Q8H as needed for pain take with food No Stop Date Active Ozempic 1 mg/dose (4 mg/3 mL) subcutaneous pen injector RxNorm: 2040685 Take 1 Unit Dose Subcutaneous QWeek Tuesday 022 2021 Inactive lisinopril 2.5 mg tablet RxNorm: 680344 Take 1 Tablet(s) Oral every day 022 2021 Inactive lisinopril 2.5 mg tablet RxNorm: 371254 Take 1 Tablet(s) Oral every day 022 2022 Inactive hydrochlorothiazide 25 mg tablet RxNorm: 458487 Take 1 Tablet(s) Oral every day 022 2021 Inactive Ozempic 1 mg/dose (4 mg/3 mL) subcutaneous pen injector RxNorm: 0665394 Take 1 Unit Dose Subcutaneous QWeek 022 2021 Inactive famotidine 20 mg tablet RxNorm: 350520 Take 1 Tablet(s) Oral every morning 2021 Inactive levothyroxine 50 mcg tablet RxNorm: 139479 Take 1 Tablet(s) Oral every day 2021 Inactive atorvastatin 20 mg tablet RxNorm: 461643 Take 1 Tablet(s) Oral every night at bedtime 2021 Inactive Cleocin T 1 % lotion RxNorm: 172772 Take 2 Gram(s) Topical every day 2021 Inactive Cleocin T 1 % lotion RxNorm: 548542 Take 2 Gram(s) Topical every day 2021 Inactive Ozempic 1 mg/dose (4 mg/3 mL) subcutaneous pen injector RxNorm: 6148435 Take 1 Unit Dose Subcutaneous QWeek 022 2021 Inactive Ozempic 0.25 mg or 0.5 mg (2 mg/1.5 mL) subcutaneous pen injector RxNorm: 1866645 INJECT 0.5 MGS SUBCUTANEOUSLY EVERY WEEK 2021 Inactive omeprazole 20 mg capsule,delayed release RxNorm: 162080 Take 1 Capsule(s) Oral every evening 2021 Inactive levothyroxine 50 mcg tablet RxNorm: 652555 Take 1 Tablet(s) Oral every day 2021 Inactive atorvastatin 20 mg tablet RxNorm: 846437 Take 1 Tablet(s) Oral every night at bedtime 2021 Inactive This refill negates all other refills of this medication lisinopril 2.5 mg tablet RxNorm: 723762 Take 1 Tablet(s) Oral every day 2021 Inactive gabapentin 300 mg capsule RxNorm: 904913 Take 1 Capsule(s) Oral three times a day 2021 Inactive montelukast 10 mg tablet RxNorm: 664516 Take 1 Tablet(s) Oral every day 2021 Inactive Myrbetriq 50 mg tablet,extended release RxNorm: 4823626 1 Tablet(s) Oral every day No Stop Date Active cholecalciferol (vitamin D3) 50 mcg (2,000 unit) tablet RxNorm: 603709 Take 1 Tablet(s) Oral every day 2022 Inactive Ozempic 0.25 mg or 0.5 mg (2 mg/1.5 mL) subcutaneous pen injector RxNorm: 2244884 inject 0.5 milligrams subcutaneously every week 2021 Inactive Ozempic 0.25 mg or 0.5 mg (2 mg/1.5 mL) subcutaneous pen injector RxNorm: 0305462 Take 0.5 Capsule(s) Injection once a week 2021 Inactive omeprazole 20 mg capsule,delayed release RxNorm: 420490 Take 1 Capsule(s) Oral every evening 2020 Inactive Ozempic 0.25 mg or 0.5 mg (2 mg/1.5 mL) subcutaneous pen injector RxNorm: 3073233 Take 0.25 Milligram(s) Subcutaneous once a week 2021 Inactive Easy Touch Alcohol Prep Pads RxNorm: 062054 USE DIRECTED EACH MORNING 2021 Inactive Probiotic 10 billion cell capsule RxNorm: 4930905 Take 1 Capsule(s) Oral every day 2021 Inactive levothyroxine 50 mcg tablet RxNorm: 485356 Take 1 Tablet(s) Oral every day 2020 Inactive Acid Human Resource Officer (famotidine) 20 mg tablet RxNorm: 102919 Take 1 Tablet(s) Oral every morning 2020 Inactive Heartburn Relief (famotidine) 10 mg tablet RxNorm: 774919 Take 1 Tablet(s) Oral QAM 2020 Inactive levothyroxine 50 mcg tablet RxNorm: 774598 Take 1 Tablet(s) Oral QD 021 2020 Inactive Singulair 10 mg tablet RxNorm: 955709 TAKE (1) TABLET BY MOUTH DAILY 021 2020 Inactive metformin 1,000 mg tablet RxNorm: 073932 1 Tablet(s) Oral two times a day 021 2021 Inactive lisinopril 2.5 mg tablet RxNorm: 346706 Take 1 Tablet(s) Oral every day 021 2020 Inactive hydrochlorothiazide 25 mg tablet RxNorm: 772824 Take 1 Tablet(s) Oral every day 021 2020 Inactive ondansetron 4 mg disintegrating tablet RxNorm: 117098 1 Tablet(s) Oral two times a day 2020 Inactive Sudafed 12 Hour 120 mg tablet,extended release RxNorm: 8350033 TAKE 1 TABLET BY MOUTH EVERY 12 HOURS NEEDED 021 2021 Inactive Heartburn Relief (famotidine) 10 mg tablet RxNorm: 773563 Take 1 Tablet(s) Oral every morning 021 2020 Inactive omeprazole 20 mg capsule,delayed release RxNorm: 261630 1 Capsule(s) Oral every evening 021 2020 Inactive sertraline 100 mg tablet RxNorm: 152353 2 Tablet(s) Oral every day 021 2020 Inactive levothyroxine 50 mcg tablet RxNorm: 345841 TAKE (1) TABLET BY MOUTH DAILY 021 2020 Inactive metformin 500 mg tablet RxNorm: 299917 1 Tablet(s) Oral two times a day take with 500mg to equal 1000mg 021 2020 Inactive gabapentin 300 mg capsule RxNorm: 690096 TAKE 1 CAPSULE BY MOUTH THREE TIMES A DAY 021 2020 Inactive lisinopril 2.5 mg tablet RxNorm: 549867 TAKE 1 TABLET BY MOUTH DAILY 021 2020 Inactive gabapentin 300 mg capsule RxNorm: 439552 TAKE 1 CAPSULE BY MOUTH THREE TIMES A DAY 2020 Inactive Singulair 10 mg tablet RxNorm: 229961 TAKE (1) TABLET BY MOUTH DAILY 2020 Inactive metformin 1,000 mg tablet RxNorm: 283933 1 Tablet(s) Oral two times a day 2020 Inactive atorvastatin 40 mg tablet RxNorm: 850044 1 Tablet(s) Oral every day 021 2020 Inactive omeprazole 20 mg capsule,delayed release RxNorm: 285082 1 Capsule(s) Oral every evening 2020 Inactive famotidine 10 mg tablet RxNorm: 164462 1 Tablet(s) Oral every morning 2020 Inactive Alcohol Prep Pads RxNorm: 254697 USE EACH MORNING 021 2020 Inactive omeprazole 20 mg capsule,delayed release RxNorm: 855141 1 Capsule(s) Oral two times a day 2021 Inactive omeprazole 20 mg capsule,delayed release RxNorm: 362454 TAKE 1 CAPSULE BY MOUTH EVERY DAY 2021 Inactive Macrobid 100 mg capsule RxNorm: 321622 1 Capsule(s) Oral every 12 hours with food 2020 Inactive omeprazole 20 mg capsule,delayed release RxNorm: 882495 1 Capsule(s) Oral two times a day 2021 Inactive metformin 1,000 mg tablet RxNorm: 629442 1 Tablet(s) Oral two times a day 2020 Inactive start on September 11, 2020 metformin 500 mg tablet RxNorm: 266899 1 Tablet(s) Oral two times a day take with 500mg to equal 1000mg 2019 Inactive gabapentin 300 mg capsule RxNorm: 266712 TAKE 1 CAPSULE BY MOUTH THREE TIMES DAILY 2020 Inactive cetirizine 10 mg tablet RxNorm: 4914791 TAKE (1) TABLET BY MOUTH DAILY 020 2020 Inactive metformin 500 mg tablet RxNorm: 870675 1 Tablet(s) Oral two times a day 2019 Inactive loperamide 2 mg tablet RxNorm: 740275 1 Tablet(s) Oral as needed take one tablet after each loose stool, maximum of 8 tablets in 24 hours 2021 Inactive Sudafed 12 Hour 120 mg tablet,extended release RxNorm: 4020467 TAKE 1 TABLET BY MOUTH EVERY 12 HOURS NEEDED 2019 Inactive hydrochlorothiazide 25 mg tablet RxNorm: 038501 TAKE (1) TABLET BY MOUTH EVERY DAY 020 2019 Inactive omeprazole 20 mg capsule,delayed release RxNorm: 063077 TAKE 1 CAPSULE BY MOUTH EVERY DAY 2020 Inactive metformin 500 mg tablet RxNorm: 287201 1 Tablet(s) Oral every day 2019 Inactive True Metrix Glucose Test Strip RxNorm: 1 Test Strips Miscellaneous two times a day as needed No Stop Date Active metformin 500 mg tablet RxNorm: 023112 1 Tablet(s) Oral every day 020 2019 Inactive diclofenac sodium 75 mg tablet,delayed release RxNorm: 165028 1 Tablet(s) PO BID 2021 Inactive This refill negates all other refills of this medication Sudafed 12 Hour 120 mg tablet,extended release RxNorm: 9955711 TAKE 1 TABLET BY MOUTH EVERY 12 HOURS NEEDED 020 2019 Inactive True Metrix Glucose Test Strip RxNorm: 1 Test Strips Miscellaneous every morning 020 2019 Inactive 100/container True Metrix Glucose Test Strip RxNorm: 1 Test Strips Miscellaneous QA 020 2019 Inactive 100/container loperamide 2 mg tablet RxNorm: 458298 1 Tablet(s) Oral as needed take one tablet after each loose stool, maximum of 8 tablets in 24 hours 2019 Inactive cetirizine 10 mg tablet RxNorm: 8445115 1 Tablet(s) PO daily 2019 Inactive loperamide 2 mg tablet RxNorm: 654421 1 Tablet(s) Oral as needed take one tablet after each loose stool, maximum of 8 tablets in 24 hours 2019 Inactive quetiapine 100 mg tablet RxNorm: 317052 1 Tablet(s) Oral every night at bedtime 2019 Inactive levothyroxine 50 mcg tablet RxNorm: 687082 1 Tablet(s) PO daily 2020 Inactive gabapentin 300 mg capsule RxNorm: 964321 1 Capsule(s) PO TID 2019 Inactive levothyroxine 50 mcg tablet RxNorm: 391012 1 Tablet(s) PO daily 2019 Inactive lisinopril 2.5 mg tablet RxNorm: 058227 1 Tablet(s) PO daily 2020 Inactive gabapentin 300 mg capsule RxNorm: 214879 1 Capsule(s) PO TID 2019 Inactive cetirizine 10 mg tablet RxNorm: 9981161 1 Tablet(s) PO daily 2019 Inactive Singulair 10 mg tablet RxNorm: 973752 1 Tablet(s) PO daily 2020 Inactive gentamicin 0.3 % eye drops RxNorm: 253342 1 Drop(s) ophthalmic (eye) four times a day 2019 Inactive gentamicin 0.3 % eye drops RxNorm: 817903 1 Drop(s) ophthalmic (eye) four times a day 2019 Inactive gentamicin 0.3 % eye drops RxNorm: 843792 1 Drop(s) ophthalmic (eye) four times a day 2019 Inactive hydrochlorothiazide 25 mg tablet RxNorm: 702535 1 Tablet(s) Oral every day 2019 Inactive Sudafed 12 Hour 120 mg tablet,extended release RxNorm: 6746855 TAKE (1) TABLET BY MOUTH EVERY 12 HOURS NEEDED 2019 Inactive loperamide 2 mg tablet RxNorm: 744826 1 Tablet(s) Oral as needed take one tablet after each loose stool, maximum of 8 tablets in 24 hours 020 2019 Inactive loperamide 2 mg tablet RxNorm: 139400 1 Tablet(s) Oral as needed take one tablet after each loose stool, maximum of 8 tablets in 24 hours 020 2019 Inactive atorvastatin 40 mg tablet RxNorm: 134956 1 Tablet(s) Oral every day 2020 Inactive quetiapine 100 mg tablet RxNorm: 141500 1 Tablet(s) Oral every night at bedtime 2019 Inactive sertraline 100 mg tablet RxNorm: 604458 1 Tablet(s) Oral 2019 Inactive omeprazole 20 mg capsule,delayed release RxNorm: 672473 1 Capsule(s) Oral every day 2019 Inactive amoxicillin 250 mg capsule RxNorm: 912385 1 Capsule(s) Oral three times a day 2019 Inactive multivitamin with iron-mineral tablet RxNorm: 1 Tablet(s) Oral every day 2021 Inactive cetirizine 10 mg tablet RxNorm: 9200139 1 Tablet(s) PO daily 2019 Inactive This refill negates all other refills of this medication. Please do not auto refill Singulair 10 mg tablet RxNorm: 921105 1 Tablet(s) PO daily 020 2019 Inactive This refill negates all other refills of this medication gabapentin 300 mg capsule RxNorm: 514662 1 Capsule(s) PO TID 2019 Inactive lisinopril 2.5 mg tablet RxNorm: 913534 1 Tablet(s) PO daily 020 2019 Inactive levothyroxine 50 mcg tablet RxNorm: 943824 1 Tablet(s) PO daily 2019 Inactive This refill negates all other refills of this medication hydrochlorothiazide 25 mg tablet RxNorm: 031025 1 Tablet(s) Oral every day 2019 Inactive fenugreek seed extract 500 mg capsule RxNorm: 1 Capsule(s) Oral three times a day 2021 Inactive Alcohol Prep Pads RxNorm: 784988 1 Patch TOP QAM 2020 Inactive loperamide 2 mg tablet RxNorm: 635822 1 Tablet(s) Oral as needed take one [...] 2019 Inactive hydrochlorothiazide 25 mg tablet RxNorm: 798682 1 Tablet(s) Oral every day 2019 Inactive Sudafed 12 Hour 120 mg tablet,extended release RxNorm: 5694016 1 Tablet(s) Oral every 12 hours as needed 2018 Inactive omeprazole 20 mg capsule,delayed release RxNorm: 309288 1 Capsule(s) Oral every day 019 2019 Inactive Sudafed 12 Hour 120 mg tablet,extended release RxNorm: 5483509 1 Tablet(s) Oral every 12 hours as needed 019 2018 Inactive pantoprazole 40 mg tablet,delayed release RxNorm: 772295 1 Tablet(s) Oral every day 019 2018 Inactive discontinue any other H2Blkr. and PPI albuterol sulfate 2.5 mg/3 mL (0.083 %) solution for nebulization RxNorm: 401977 1 Vial Inhalation every four hours as needed as needed for dyspnea 2019 Inactive 60/box. This refill negates all other refills of this medication. Please do not fill early. Please do not auto refill. Symbicort 160 mcg-4.5 mcg/actuation HFA aerosol inhaler RxNorm: 9111850 2 Puff(s) INH BID 019 No Stop Date Active Alcohol Prep Pads RxNorm: 800908 1 Patch TOP QAM 019 2019 Inactive Ventolin HFA 90 mcg/actuation aerosol inhaler RxNorm: 169581 2 Puff(s) INH QID 019 2019 Inactive Please do not fill early. Please do not auto refill. This refill negates all other refills of this medication True Metrix Glucose Test Strip RxNorm: 1 Test Strips Miscellaneous QAM 019 2019 Inactive 100/container atorvastatin 40 mg tablet RxNorm: 023046 1 Tablet(s) Oral every day 019 2019 Inactive buspirone 7.5 mg tablet RxNorm: 729631 1 Tablet(s) PO BID 019 2020 Inactive This refill negates all other refills of this medication hydrochlorothiazide 12.5 mg tablet RxNorm: 862921 1 Tablet(s) PO QAM 019 2019 Inactive levmetamfetamine 50 mg nasal inhaler RxNorm: 1 Unit(s) NASAL Q3-4H Do not use more than every 3 hours or 8 times/24hours 019 2021 Inactive Please do not auto refill. This refill negates all other refills of this medication Ventolin HFA 90 mcg/actuation aerosol inhaler RxNorm: 194338 2 Puff(s) INH QID 019 2018 Inactive Please do not fill early. Please do not auto refill. This refill negates all other refills of this medication Singulair 10 mg tablet RxNorm: 763991 1 Tablet(s) PO daily 019 2019 Inactive This refill negates all other refills of this medication cetirizine 10 mg tablet RxNorm: 6054651 1 Tablet(s) PO daily 019 2019 Inactive This refill negates all other refills of this medication. Please do not auto refill levothyroxine 50 mcg tablet RxNorm: 966361 1 Tablet(s) PO daily 019 2019 Inactive This refill negates all other refills of this medication diclofenac sodium 75 mg tablet,delayed release RxNorm: 822274 1 Tablet(s) PO BID 019 2019 Inactive This refill negates all other refills of this medication ranitidine 150 mg tablet RxNorm: 854810 1 Tablet(s) PO BID 019 2018 Inactive This refill negates all other refills of this medication Calcium 600-D3 Plus (mag-zinc) 600 mg calcium-800 unit-50 mg tablet RxNorm: 1 Tablet(s) PO daily take an additonal tablet for itching. 019 2018 Inactive This refill negates all other refills of this medication albuterol sulfate 2.5 mg/3 mL (0.083 %) solution for nebulization RxNorm: 603375 1 Vial INH QID 019 2018 Inactive 60/box. This refill negates all other refills of this medication. Please do not fill early. Please do not auto refill. lisinopril 2.5 mg tablet RxNorm: 955281 1 Tablet(s) PO daily 019 2019 Inactive gabapentin 300 mg capsule RxNorm: 053732 1 Capsule(s) PO TID 019 2019 Inactive atorvastatin 20 mg tablet RxNorm: 319323 1 Tablet(s) PO QHS 019 2018 Inactive This refill negates all other refills of this medication TRUEplus Lancets 30 gauge RxNorm: 1 Lancets Miscellaneous QAM 019 2018 Inactive 100/box gabapentin 300 mg capsule RxNorm: 914576 1 Capsule(s) PO TID 019 2018 Inactive Flintstones Complete (iron) 18 mg iron chewable tablet RxNorm: 1 Tablet(s) PO daily 019 2021 Inactive This refill negates all other refills of this medication gabapentin 300 mg capsule RxNorm: 329958 1 Capsule(s) PO TID as needed 2018 Inactive True Metrix Glucose Test Strip RxNorm: 1 Test Strips Miscellaneous QAM 019 2018 Inactive 100/container Alcohol Prep Pads RxNorm: 578479 1 Patch TOP QAM 2018 Inactive TRUEplus Lancets 30 gauge RxNorm: 1 Lancets Miscellaneous QAM 019 2018 Inactive 100/box lisinopril 2.5 mg tablet RxNorm: 137641 1 Tablet(s) PO daily 2018 Inactive ranitidine 150 mg tablet RxNorm: 765150 1 Tablet(s) PO BID 019 2018 Inactive This refill negates all other refills of this medication albuterol sulfate 2.5 mg/3 mL (0.083 %) solution for nebulization RxNorm: 976091 1 Vial INH QID 019 2018 Inactive [...] this medication gabapentin 300 mg capsule RxNorm: 886273 1 Capsule(s) PO TID as needed 019 2018 Inactive atorvastatin 20 mg tablet RxNorm: 065172 1 Tablet(s) PO QHS 019 2018 Inactive This refill negates all other refills of this medication trazodone 50 mg tablet RxNorm: 228695 1 Tablet(s) PO QHS 019 2018 Inactive This refill negates all other refills of this medication Ventolin HFA 90 mcg/actuation aerosol inhaler RxNorm: 724645 2 Puff(s) INH QID 019 2018 Inactive Please do not fill early. Please do not auto refill. This refill negates all other refills of this medication Calcium 600-D3 Plus 600 mg calcium-800 unit-50 mg tablet RxNorm: 1 Tablet(s) PO daily take an additonal tablet for itching. 019 2018 Inactive This refill negates all other refills of this medication Singulair 10 mg tablet RxNorm: 562788 1 Tablet(s) PO daily 019 2018 Inactive This refill negates all other refills of this medication buspirone 7.5 mg tablet RxNorm: 320051 1 Tablet(s) PO BID 019 2018 Inactive This refill negates all other refills of this medication diclofenac sodium 75 mg tablet,delayed release RxNorm: 842743 1 Tablet(s) PO BID 019 2018 Inactive This refill negates all other refills of this medication hydrochlorothiazide 12.5 mg tablet RxNorm: 794447 1 Tablet(s) PO QAM 019 2018 Inactive metoprolol succinate ER 50 mg tablet,extended release 24 hr RxNorm: 676428 1 Tablet(s) PO daily 019 2018 Inactive This refill negates all other refills of this medication levothyroxine 50 mcg tablet RxNorm: 663519 1 Tablet(s) PO daily 019 2018 Inactive This refill negates all other refills of this medication cetirizine 10 mg tablet RxNorm: 9038852 1 Tablet(s) PO daily 019 2018 Inactive This refill negates all other refills of this medication. Please do not auto refill Flintstones Complete (iron) 18 mg iron chewable tablet RxNorm: 1 Tablet(s) PO daily 019 2018 Inactive This refill negates all other refills of this medication buspirone 7.5 mg tablet RxNorm: 357822 1 Tablet(s) PO BID 019 2018 Inactive cetirizine 10 mg tablet RxNorm: 2239915 1 Tablet(s) PO daily 2018 Inactive Guaiasorb DM 10 mg-100 mg/5 mL oral liquid RxNorm: 140253 10 Milliliter(s) PO As needed every 4 hr 2018 Inactive Vicks Vaporub 4.7 %-1.2 %-2.6 % topical ointment RxNorm: 3187895 1 Application TOP TID 2018 Inactive levmetamfetamine 50 mg nasal inhaler RxNorm: 1 Unit(s) NASAL Q3-4H 2017 Inactive sertraline 50 mg tablet RxNorm: 458642 1 Tablet(s) PO daily 018 2018 Inactive Please note dose trazodone 50 mg tablet RxNorm: 796769 1 Tablet(s) PO QHS 018 2018 Inactive sertraline 50 mg tablet RxNorm: 190555 1 Tablet(s) PO daily 018 2017 Inactive amoxicillin 500 mg tablet RxNorm: 010270 1 Tablet(s) PO Q12H 2017 Inactive albuterol sulfate 2.5 mg/3 mL (0.083 %) solution for nebulization RxNorm: 463649 1 Vial INH QID 018 2018 Inactive 60/box. Please do not fill early. Please do not auto refill. Prozac 10 mg capsule RxNorm: 105436 1 Capsule(s) PO daily 018 2017 Inactive buspirone 7.5 mg tablet RxNorm: 291643 1 Tablet(s) PO BID 018 2018 Inactive gabapentin 300 mg capsule RxNorm: 441209 1 Capsule(s) PO TID as needed 2018 Inactive hydrochlorothiazide 12.5 mg tablet RxNorm: 768838 1 Tablet(s) PO QAM 018 2018 Inactive ranitidine 150 mg tablet RxNorm: 380433 1 Tablet(s) PO BID 018 2018 Inactive Macrobid 100 mg capsule RxNorm: 166986 1 Capsule(s) PO Q12H 018 2017 Inactive Singulair 10 mg tablet RxNorm: 609891 1 Tablet(s) PO daily 018 2018 Inactive Ventolin HFA 90 mcg/actuation aerosol inhaler RxNorm: 4150219 2 Puff(s) INH QID 018 2018 Inactive Singulair 10 mg tablet RxNorm: 868605 1 Tablet(s) PO daily 018 2017 Inactive buspirone 7.5 mg tablet RxNorm: 292003 1 Tablet(s) PO BID 018 2017 Inactive Prozac 10 mg capsule RxNorm: 070046 1 Capsule(s) PO daily 018 2017 Inactive diclofenac sodium 75 mg tablet,delayed release RxNorm: 992879 1 Tablet(s) PO BID 018 2017 Inactive lisinopril 2.5 mg tablet RxNorm: 242800 1 Tablet(s) PO daily 018 2017 Inactive Neilmed Pediatric Sinus Rinse Refill packet RxNorm: 1 Unit Dose NASAL PRN 018 2021 Inactive metoprolol succinate ER 50 mg tablet,extended release 24 hr RxNorm: 265739 1 Tablet(s) PO daily 018 2017 Inactive levothyroxine 50 mcg tablet RxNorm: 277569 1 Tablet(s) PO daily 018 2017 Inactive TRUEplus Lancets 30 gauge RxNorm: 1 Lancets Miscellaneous QAM 018 2017 Inactive 100/box Ventolin HFA 90 mcg/actuation aerosol inhaler RxNorm: 527813 2 Puff(s) INH QID 018 2017 Inactive Aleve 220 mg capsule RxNorm: 9021921 1 Capsule(s) PO BID 018 2018 Inactive ranitidine 150 mg tablet RxNorm: 351059 1 Tablet(s) PO BID 2017 Inactive gabapentin 300 mg capsule RxNorm: 800951 1 Capsule(s) PO TID as needed 2017 Inactive atorvastatin 20 mg tablet RxNorm: 232692 1 Tablet(s) PO QHS 2017 Inactive True Metrix Glucose Test Strip RxNorm: 1 Test Strips Miscellaneous QAM 2017 Inactive 50/container Calcium 600-D3 Plus 600 mg calcium-800 unit-50 mg tablet RxNorm: 1 Tablet(s) PO daily take an additonal tablet for itching. 018 2017 Inactive hydrochlorothiazide 12.5 mg tablet RxNorm: 339745 1 Tablet(s) PO QAM 018 2017 Inactive Flintstones Complete (iron) 18 mg iron chewable tablet RxNorm: 1 Tablet(s) PO daily 018 2017 Inactive True Metrix Glucose Meter RxNorm: miscellaneous 019 2018 Inactive sertraline 50 mg tablet RxNorm: 573708 1 Tablet(s) PO daily 020 2019 Inactive loperamide 2 mg tablet RxNorm: 387624 oral 019 2018 Inactive d-mannose oral powder RxNorm: PO 018 2021 Inactive Symbicort 160 mcg-4.5 mcg/actuation HFA aerosol inhaler RxNorm: 6958446 2 Puff(s) INH BID 019 2018 Inactive Medication Administered No Medication Administered data Procedures Procedure Codes Date Medina Fany Assessment CPT-4: DSWA 01/02 Fall Risk Assessment CPT-4: DFRA 01/27/2023 Hypertension CPT-4: HTN 01/27/2023 Patient Health Questionnaire CPT-4: DPHQ Pain Screening CPT-4: PAS 2022 Tobacco Assessment/Screening CPT-4: TCA Hypertension CPT-4: HTN 08/17/2022 Medina Fany Assessment CPT-4: DSWA 04/02 Patient Health [...] CPT-4: VACP Fall Risk Assessment SNOMED CT: 21381257 4 CPT-4: DFRA01/13/2021emmes Fany AssessmentCPT-4: DSWA12/17/2020Urinalysis, dip stickCPT-4: 134747909/24/2020Patient Health QuestionnaireCPT-4: DPHQ 08/19/2020ElectrocardiogramCPT-4: 9907595Tobacco Assessment/Screening CPT-4: TCA01/01/2020Fall Risk AssessmentSNOMED CT: 838450333 CPT-4: DFRA01/01/2020Functional AssessmentCPT-4: DFA01/01/2020Semmes Fany AssessmentCPT-4: DSWA11/28/2019Patient Health QuestionnaireCPT-4: DPHQ11/28/2019 Medina Fany AssessmentCPT-4: DSWA10/17/2019HypertensionCPT-4: HTN10/17/[address]: 202402761 CPT-4: DFRA09/19/2019Functional AssessmentCPT-4: DFA111/20/2018Urinalysis, dip stickCPT-4: 8979805Tobacco Assessment/ScreeningCPT-4: TCA05/24/2019 Patient Health QuestionnaireCPT-4: DPHQ05/24/2019AHA/REBECCA Classification AssessmentCPT-4: DAHA04/25/2019Controlled Substance ReportCPT-4: CTRSU04/25/2019 Urinalysis, dip stickCPT-4: 8029380Urinalysis, dip stickCPT-4: 14472 03/28/20194131E4M-XexnpgajeyhqxceVRC-1: 36071AgmsdaaK7T-YndektznroipnznQOT-3: 30598 MooygcfS5T-DboljosedgyzuecYFU-2: 40094MpfwdkbW9F-EsxcqxxnvznrvllLKB-0: 77101 YgxyojbI1L-OuvtfrgdpjygiibDUA-7: 26598GbtzysiD3C-EftqhhtopxmldjsIYB-6: 03824 UbdaysgP1J-KfbzbdcspzpjkulKAJ-4: 23571HxfafjeW4K-FbtfmsdxdzumlzpFTK-1: 99468 LhwjbmqH9V-GsdrzzfamwwxlfyCHC-3: 71204EwisywxU8N-ZujuoecavulcivwGIA-3: 90299 PrcosksS6O-KvumbslfniukgmfJXQ-0: 13528XjtvnuxH7H-YrsfsjkuhqydwgaJRE-3: [address]: 034838137 CPT-4: I95Evmvjzv Reason For Visit No Reason For Visit data Plan of Care Planned Activity Notes Codes Status Date Referral: Pending Gynecology Referral Informatio n Referral ProcessedReferral: Pending Pulmonology Referral InformationReferralProcessed Referral: Pending Psychiatry Referral InformationReferralInitiatedReferral: Pending Respiratory Services Referral InformationReferralInitiatedReferral: Pending Ophthalmology Referral InformationReferralInitiatedReferral: [facility] WPtel: [address] [id number] USWriter placed a call out to the patient to notify her that it has been recommended that she be seenby a urologist. Patient agreed to be seen, does not have a provider of choice and no transportationissues. Curtain Cleaner faxed referral and clinical notes to [facility] in [place], [place] near the patient's home. Patient to [...] seen and prefers a provider in the [place] or [place] area. Curtain Cleaner placed a call out to everyone listed in the area and the only location that was able to accept the patient's insurance was [address] [phone] and spoke with Maylin. Maylin asked that the patient's referral, face sheet and visit notes be faxed to . Curtain Cleaner faxed over requested documents. Patient appointment confirmation letter generated and mailed to her home address. Patient to call to schedule an appointment.ProcessedReferral: [facility] WPtel: [address] [id number] USPatient notified that it has been advised that she be seen by Neurology. Patient agreed to be seen and prefers to be seen by a provider in the [place], [place] area. Patient denies any concerns with transportation, and prefers to schedule her own appointment. Curtain Cleaner [facility] and spoke with Neeraj [...]
--- OUTSIDE RECORDS SUMMARY | 2024-01-03 23:26 | XMS_ITS | CCD ---
Author Name Leena Culver NP Address [address] [place] [address] [place] [id number] Phone Organization [employer] [facility] Phone Care Team Providers Care Transportation Project Manager Name Role Phone Anna Culver NP Primary Care Provider Unav ailable Unavailable Chronic Care Management Unavaila ble Summary Purpose DataExchange Insurance Providers Payer name Policy type / Coverage type Covered green party ID Effective Begin Date Effective End Date SUKI MAYO [id number] Unknown Unknown Family history Mother Diagnosis Age [...] 05/31/2018 Education level Unknown Some High School 10th05/31/20189239CtebooqgiaSuqxkngDdmckwhamj27/29/2018Tobacco historySNOMED CT: [id number] never smoked or chewed [id number]/31/2018Alcohol historySNOMED CT: 460132162Bugge drinks [id number]/31/2018Has the patient ever used illegal drugs? UnknownHas never used illegal drugs05/31/2018DNR Order/ Advanced Directive UnknownFull Code05/31/2018 Allergies, Adverse Reactions, Alerts Substance Reaction Codes Entered Date Inactivated Date Status OxyContin itch, RxNorm: 902573 01/13/2021 No Inactive Da te Active *No known food allergies Wcupysf0909/06/2018No Inactive DateActiveMethylprednisolonehivesRxNorm: 6902 09/06/2018No Inactive DateActive Problems Condition Codes Effective Dates Condition St atus Hyperlipidemia, mixed ICD-10: E78.2 ICD-9: 272.203/ctiveHypertensive heart disease without heart failureICD- 10: I11.9 ICD-9: 402.9003/ctiveMajor depression, recurrentICD-10: F33.9 ICD-9: 296.3009/ctiveNonintractable epileptic seizures due to external causes, without status epilepticusICD-10: G40.509 ICD-9: 345.9008/ctiveType 2 diabetes mellitus with peripheral neuropathy ICD-10: E11.42 ICD-9: 250.6002/ActiveVitamin D deficiencyICD-10: E55.9 ICD-9: 268.90/ctiveUTI (urinary tract infection)ICD-10: N39.0 ICD-9: 599.006/ctiveAdult BMI 50.0-59.9 kg/sq mICD-10: Z68.43 ICD-9: V85.4308/ActiveInsomniaICD-10: G47.00 ICD-9: 780.5204/ctiveGERD (gastroesophageal reflux disease)ICD-10: K21.9 ICD-9: 530.8112ActiveObstructive sleep [...] depressed moodICD-10: F43.23 ICD-9: 309.2812/01/2018ActiveHypothyroidICD-10: E03.9 ICD-9: 244.912ActiveAllergic rhinitisICD-10: J30.9 ICD-9: 477.903/ctiveEdema, unspecifiedICD-10: R60.9 ICD-9: 782.310/06/2018ActiveHypertensive heart disease with [...] with incomplete bladder emptying ICD-10: R33.9 ICD-9: 788.1ActiveApnea, not elsewhere classifiedICD-10: R06.81 ICD-9: 786.0305/10/2018InactiveChest pain, [...] Date Stop Date Status Fill Instructions metformin ER 500 mg 24 hr tablet,extended release RxNorm: 9277265 Take 1 Tablet(s) Oral every day with the evening meal 023 2022 Inactive famotidine 20 mg tablet RxNorm: 865990 Take 1 Tablet(s) Oral every morning 023 2022 Inactive levothyroxine 50 mcg tablet RxNorm: 199912 Take 1 Tablet(s) Oral every day 023 2023 Active Msg From [facility]: Approval Requested hydrochlorothiazide 25 mg tablet RxNorm: 102142 Take 1 Tablet(s) Oral every day 023 2023 Active Msg From [facility]: Approval Requested atorvastatin 20 mg tablet RxNorm: 133792 Take 1 Tablet(s) Oral every night at bedtime 023 2023 Active Macrobid 100 mg capsule RxNorm: 680052 1 Capsule(s) Oral every 12 hours with food 023 2022 Inactive omeprazole 40 mg capsule,delayed release RxNorm: 777694 Take 1 Capsule(s) Oral every night at bedtime 023 2022 Inactive trazodone 50 mg tablet RxNorm: 221796 Administer 1 Tablet(s) Oral every night at bedtime 023 No Stop Date Active cholecalciferol (vitamin D3) 50 mcg (2,000 unit) tablet RxNorm: 683967 Take 1 Tablet(s) Oral every day 023 2023 Active Ozempic 1 mg/dose (4 mg/3 mL) subcutaneous pen injector RxNorm: 6191762 USE 1 UNIT DOSE SUBCUTANEOUSLY ON TUE OF EACH WEEK 023 2022 Inactive lisinopril 2.5 mg tablet RxNorm: 300916 Take 1 Tablet(s) Oral every day 023 2022 Inactive Msg From [facility]: Dr. Zapata Requested Ozempic 1 mg/dose (4 mg/3 mL) subcutaneous pen injector RxNorm: 6596084 USE 1 UNIT DOSE SUBCUTANEOUSLY ON TUE OF EACH WEEK 2022 Inactive omeprazole 40 mg capsule,delayed release RxNorm: 185578 Take 1 Capsule(s) Oral every night at bedtime 023 2022 Inactive gabapentin 300 mg capsule RxNorm: 281122 Take 1 Capsule(s) Oral three times a day 023 2022 Inactive montelukast 10 mg tablet RxNorm: 570399 Take 1 Tablet(s) Oral every day 023 2022 Inactive omeprazole 20 mg capsule,delayed release RxNorm: 902278 Take 1 Capsule(s) Oral every evening 022 2022 Inactive Alcohol Prep Pads RxNorm: 315023 USE EACH MORNING 022 2021 Inactive E11.42 clotrimazole 1 % topical cream RxNorm: 447029 Apply 1 Application Topical two times a day as needed apply to affected area(s) twice daily until healed 2021 Inactive Victoza 2-Sebastián 0.6 mg/0.1 mL (18 mg/3 mL) subcutaneous pen injector RxNorm: 189811 Inject 0.6-1.8 Milligram(s) Subcutaneous once a week Inject 0.6mg/0.1ml week one, 1.2mg/0.2ml week two, 1.8/0.3ml weekly thereafter 022 2021 Inactive ibuprofen 800 mg tablet RxNorm: 294143 Take 1 Tablet(s) Oral Q8H as needed for pain take with food No Stop Date Active Ozempic 1 mg/dose (4 mg/3 mL) subcutaneous pen injector RxNorm: 3659335 Take 1 Unit Dose Subcutaneous QWeek Tuesday 022 2021 Inactive lisinopril 2.5 mg tablet RxNorm: 313818 Take 1 Tablet(s) Oral every day 022 2021 Inactive lisinopril 2.5 mg tablet RxNorm: 406528 Take 1 Tablet(s) Oral every day 022 2022 Inactive hydrochlorothiazide 25 mg tablet RxNorm: 561265 Take 1 Tablet(s) Oral every day 022 2021 Inactive Ozempic 1 mg/dose (4 mg/3 mL) subcutaneous pen injector RxNorm: 2652689 Take 1 Unit Dose Subcutaneous QWeek 022 2021 Inactive famotidine 20 mg tablet RxNorm: 871103 Take 1 Tablet(s) Oral every morning 2021 Inactive levothyroxine 50 mcg tablet RxNorm: 543728 Take 1 Tablet(s) Oral every day 2021 Inactive atorvastatin 20 mg tablet RxNorm: 134523 Take 1 Tablet(s) Oral every night at bedtime 2021 Inactive Cleocin T 1 % lotion RxNorm: 109368 Take 2 Gram(s) Topical every day 022 2021 Inactive Cleocin T 1 % lotion RxNorm: 142228 Take 2 Gram(s) Topical every day 2021 Inactive Ozempic 1 mg/dose (4 mg/3 mL) subcutaneous pen injector RxNorm: 7860696 Take 1 Unit Dose Subcutaneous QWeek 022 2021 Inactive Ozempic 0.25 mg or 0.5 mg (2 mg/1.5 mL) subcutaneous pen injector RxNorm: 3959528 INJECT 0.5 MGS SUBCUTANEOUSLY EVERY WEEK 022 2021 Inactive omeprazole 20 mg capsule,delayed release RxNorm: 601026 Take 1 Capsule(s) Oral every evening 022 2021 Inactive levothyroxine 50 mcg tablet RxNorm: 440849 Take 1 Tablet(s) Oral every day 2021 Inactive atorvastatin 20 mg tablet RxNorm: 212944 Take 1 Tablet(s) Oral every night at bedtime 2021 Inactive This refill negates all other refills of this medication lisinopril 2.5 mg tablet RxNorm: 968765 Take 1 Tablet(s) Oral every day 2021 Inactive gabapentin 300 mg capsule RxNorm: 746936 Take 1 Capsule(s) Oral three times a day 2021 Inactive montelukast 10 mg tablet RxNorm: 659771 Take 1 Tablet(s) Oral every day 022 2021 Inactive Myrbetriq 50 mg tablet,extended release RxNorm: 6328584 1 Tablet(s) Oral every day No Stop Date Active cholecalciferol (vitamin D3) 50 mcg (2,000 unit) tablet RxNorm: 129817 Take 1 Tablet(s) Oral every day 2022 Inactive Ozempic 0.25 mg or 0.5 mg (2 mg/1.5 mL) subcutaneous pen injector RxNorm: 1514846 inject 0.5 milligrams subcutaneously every week 2021 Inactive Ozempic 0.25 mg or 0.5 mg (2 mg/1.5 mL) subcutaneous pen injector RxNorm: 6045239 Take 0.5 Capsule(s) Injection once a week 022 2021 Inactive omeprazole 20 mg capsule,delayed release RxNorm: 468341 Take 1 Capsule(s) Oral every evening 2020 Inactive Ozempic 0.25 mg or 0.5 mg (2 mg/1.5 mL) subcutaneous pen injector RxNorm: 5802845 Take 0.25 Milligram(s) Subcutaneous once a week 021 2021 Inactive Easy Touch Alcohol Prep Pads RxNorm: 987987 USE DIRECTED EACH MORNING 021 2021 Inactive Probiotic 10 billion cell capsule RxNorm: 7224028 Take 1 Capsule(s) Oral every day 021 2021 Inactive levothyroxine 50 mcg tablet RxNorm: 236195 Take 1 Tablet(s) Oral every day 021 2020 Inactive Acid Masonry Teacher (famotidine) 20 mg tablet RxNorm: 494733 Take 1 Tablet(s) Oral every morning 021 2020 Inactive Heartburn Relief (famotidine) 10 mg tablet RxNorm: 364108 Take 1 Tablet(s) Oral QAM 021 2020 Inactive levothyroxine 50 mcg tablet RxNorm: 369446 Take 1 Tablet(s) Oral QD 2020 Inactive Singulair 10 mg tablet RxNorm: 244846 TAKE (1) TABLET BY MOUTH DAILY 2020 Inactive metformin 1,000 mg tablet RxNorm: 315511 1 Tablet(s) Oral two times a day 021 2021 Inactive lisinopril 2.5 mg tablet RxNorm: 503921 Take 1 Tablet(s) Oral every day 021 2020 Inactive hydrochlorothiazide 25 mg tablet RxNorm: 360564 Take 1 Tablet(s) Oral every day 021 2020 Inactive ondansetron 4 mg disintegrating tablet RxNorm: 663326 1 Tablet(s) Oral two times a day 021 2020 Inactive Sudafed 12 Hour 120 mg tablet,extended release RxNorm: 9269683 TAKE 1 TABLET BY MOUTH EVERY 12 HOURS NEEDED 021 2021 Inactive Heartburn Relief (famotidine) 10 mg tablet RxNorm: 590602 Take 1 Tablet(s) Oral every morning 021 2020 Inactive omeprazole 20 mg capsule,delayed release RxNorm: 112132 1 Capsule(s) Oral every evening 021 2020 Inactive sertraline 100 mg tablet RxNorm: 652957 2 Tablet(s) Oral every day 06/11/2020 Inactive levothyroxine 50 mcg tablet RxNorm: 133885 TAKE (1) TABLET BY MOUTH DAILY 021 2020 Inactive metformin 500 mg tablet RxNorm: 778585 1 Tablet(s) Oral two times a day take with 500mg to equal 1000mg 021 2020 Inactive gabapentin 300 mg capsule RxNorm: 563886 TAKE 1 CAPSULE BY MOUTH THREE TIMES A DAY 021 2020 Inactive lisinopril 2.5 mg tablet RxNorm: 750930 TAKE 1 TABLET BY MOUTH DAILY 021 2020 Inactive gabapentin 300 mg capsule RxNorm: 532964 TAKE 1 CAPSULE BY MOUTH THREE TIMES A DAY 021 2020 Inactive Singulair 10 mg tablet RxNorm: 749310 TAKE (1) TABLET BY MOUTH DAILY 021 2020 Inactive metformin 1,000 mg tablet RxNorm: 487258 1 Tablet(s) Oral two times a day 021 2020 Inactive atorvastatin 40 mg tablet RxNorm: 853794 1 Tablet(s) Oral every day 021 2020 Inactive omeprazole 20 mg capsule,delayed release RxNorm: 695867 1 Capsule(s) Oral every evening 021 2020 Inactive famotidine 10 mg tablet RxNorm: 917531 1 Tablet(s) Oral every morning 021 2020 Inactive Alcohol Prep Pads RxNorm: 605182 USE EACH MORNING 021 2020 Inactive omeprazole 20 mg capsule,delayed release RxNorm: 569845 1 Capsule(s) Oral two times a day 021 2021 Inactive omeprazole 20 mg capsule,delayed release RxNorm: 531049 TAKE 1 CAPSULE BY MOUTH EVERY DAY 021 2021 Inactive Macrobid 100 mg capsule RxNorm: 011899 1 Capsule(s) Oral every 12 hours with food 020 2020 Inactive omeprazole 20 mg capsule,delayed release RxNorm: 197596 1 Capsule(s) Oral two times a day 2021 Inactive metformin 1,000 mg tablet RxNorm: 799225 1 Tablet(s) Oral two times a day 2020 Inactive start on September 11, 2020 metformin 500 mg tablet RxNorm: 061025 1 Tablet(s) Oral two times a day take with 500mg to equal 1000mg 2019 Inactive gabapentin 300 mg capsule RxNorm: 123326 TAKE 1 CAPSULE BY MOUTH THREE TIMES DAILY 2020 Inactive cetirizine 10 mg tablet RxNorm: 8926084 TAKE (1) TABLET BY MOUTH DAILY 2020 Inactive metformin 500 mg tablet RxNorm: 681232 1 Tablet(s) Oral two times a day 2019 Inactive loperamide 2 mg tablet RxNorm: 741762 1 Tablet(s) Oral as needed take one tablet after each loose stool, maximum of 8 tablets in 24 hours 2021 Inactive Sudafed 12 Hour 120 mg tablet,extended release RxNorm: 6820590 TAKE 1 TABLET BY MOUTH EVERY 12 HOURS NEEDED 2019 Inactive hydrochlorothiazide 25 mg tablet RxNorm: 027583 TAKE (1) TABLET BY MOUTH EVERY DAY 2019 Inactive omeprazole 20 mg capsule,delayed release RxNorm: 944723 TAKE 1 CAPSULE BY MOUTH EVERY DAY 2020 Inactive metformin 500 mg tablet RxNorm: 242406 1 Tablet(s) Oral every day 2019 Inactive True Metrix Glucose Test Strip RxNorm: 1 Test Strips Miscellaneous two times a day as needed No Stop Date Active metformin 500 mg tablet RxNorm: 889140 1 Tablet(s) Oral every day 2019 Inactive diclofenac sodium 75 mg tablet,delayed release RxNorm: 478884 1 Tablet(s) PO BID 2021 Inactive This refill negates all other refills of this medication Sudafed 12 Hour 120 mg tablet,extended release RxNorm: 7674505 TAKE 1 TABLET BY MOUTH EVERY 12 HOURS NEEDED 020 2019 Inactive True Metrix Glucose Test Strip RxNorm: 1 Test Strips Miscellaneous every morning 020 2019 Inactive 100/container True Metrix Glucose Test Strip RxNorm: 1 Test Strips Miscellaneous QAM 020 2019 Inactive 100/container loperamide 2 mg tablet RxNorm: 067100 1 Tablet(s) Oral as needed take one tablet after each loose stool, maximum of 8 tablets in 24 hours 020 2019 Inactive cetirizine 10 mg tablet RxNorm: 1182677 1 Tablet(s) PO daily 020 2019 Inactive loperamide 2 mg tablet RxNorm: 101789 1 Tablet(s) Oral as needed take one tablet after each loose stool, maximum of 8 tablets in 24 hours 2019 Inactive quetiapine 100 mg tablet RxNorm: 164700 1 Tablet(s) Oral every night at bedtime 2019 Inactive levothyroxine 50 mcg tablet RxNorm: 368622 1 Tablet(s) PO daily 020 2020 Inactive gabapentin 300 mg capsule RxNorm: 074407 1 Capsule(s) PO TID 2019 Inactive levothyroxine 50 mcg tablet RxNorm: 410508 1 Tablet(s) PO daily 020 2019 Inactive lisinopril 2.5 mg tablet RxNorm: 563628 1 Tablet(s) PO daily 020 2020 Inactive gabapentin 300 mg capsule RxNorm: 471072 1 Capsule(s) PO TID 020 2019 Inactive cetirizine 10 mg tablet RxNorm: 4221427 1 Tablet(s) PO daily 020 2019 Inactive Singulair 10 mg tablet RxNorm: 856215 1 Tablet(s) PO daily 2020 Inactive gentamicin 0.3 % eye drops RxNorm: 291082 1 Drop(s) ophthalmic (eye) four times a day 2019 Inactive gentamicin 0.3 % eye drops RxNorm: 460367 1 Drop(s) ophthalmic (eye) four times a day 2019 Inactive gentamicin 0.3 % eye drops RxNorm: 840804 1 Drop(s) ophthalmic (eye) four times a day 2019 Inactive hydrochlorothiazide 25 mg tablet RxNorm: 414138 1 Tablet(s) Oral every day 2019 Inactive Sudafed 12 Hour 120 mg tablet,extended release RxNorm: 0162310 TAKE (1) TABLET BY MOUTH EVERY 12 HOURS NEEDED 2019 Inactive loperamide 2 mg tablet RxNorm: 266515 1 Tablet(s) Oral as needed take one tablet after each loose stool, maximum of 8 tablets in 24 hours 2019 Inactive loperamide 2 mg tablet RxNorm: 970084 1 Tablet(s) Oral as needed take one tablet after each loose stool, maximum of 8 tablets in 24 hours 2019 Inactive atorvastatin 40 mg tablet RxNorm: 384544 1 Tablet(s) Oral every day 2020 Inactive quetiapine 100 mg tablet RxNorm: 305124 1 Tablet(s) Oral every night at bedtime 2019 Inactive sertraline 100 mg tablet RxNorm: 537731 1 Tablet(s) Oral 2019 Inactive omeprazole 20 mg capsule,delayed release RxNorm: 880957 1 Capsule(s) Oral every day 2019 Inactive amoxicillin 250 mg capsule RxNorm: 255345 1 Capsule(s) Oral three times a day 2019 Inactive multivitamin with iron-mineral tablet RxNorm: 1 Tablet(s) Oral every day 2021 Inactive cetirizine 10 mg tablet RxNorm: 3602094 1 Tablet(s) PO daily 2019 Inactive This refill negates all other refills of this medication. Please do not auto refill Singulair 10 mg tablet RxNorm: 676473 1 Tablet(s) PO daily 020 2019 Inactive This refill negates all other refills of this medication gabapentin 300 mg capsule RxNorm: 835096 1 Capsule(s) PO TID 2019 Inactive lisinopril 2.5 mg tablet RxNorm: 880834 1 Tablet(s) PO daily 2019 Inactive levothyroxine 50 mcg tablet RxNorm: 154524 1 Tablet(s) PO daily 2019 Inactive This refill negates all other refills of this medication hydrochlorothiazide 25 mg tablet RxNorm: 769216 1 Tablet(s) Oral every day 2019 Inactive fenugreek seed extract 500 mg capsule RxNorm: 1 Capsule(s) Oral three times a day 2021 Inactive Alcohol Prep Pads RxNorm: 212064 1 Patch TOP QAM 2020 Inactive loperamide 2 mg tablet RxNorm: 493860 1 Tablet(s) Oral as needed take one [...] 2019 Inactive hydrochlorothiazide 25 mg tablet RxNorm: 093414 1 Tablet(s) Oral every day 019 2019 Inactive Sudafed 12 Hour 120 mg tablet,extended release RxNorm: 4973738 1 Tablet(s) Oral every 12 hours as needed 2018 Inactive omeprazole 20 mg capsule,delayed release RxNorm: 697597 1 Capsule(s) Oral every day 019 2019 Inactive Sudafed 12 Hour 120 mg tablet,extended release RxNorm: 1492834 1 Tablet(s) Oral every 12 hours as needed 2018 Inactive pantoprazole 40 mg tablet,delayed release RxNorm: 240659 1 Tablet(s) Oral every day 2018 Inactive discontinue any other H2Blkr. and PPI albuterol sulfate 2.5 mg/3 mL (0.083 %) solution for nebulization RxNorm: 794304 1 Vial Inhalation every four hours as needed as needed for dyspnea 2019 Inactive 60/box. This refill negates all other refills of this medication. Please do not fill early. Please do not auto refill. Symbicort 160 mcg-4.5 mcg/actuation HFA aerosol inhaler RxNorm: 7579096 2 Puff(s) INH BID No Stop Date Active Alcohol Prep Pads RxNorm: 984029 1 Patch TOP QAM 019 2019 Inactive Ventolin HFA 90 mcg/actuation aerosol inhaler RxNorm: 126804 2 Puff(s) INH QID 2019 Inactive Please do not fill early. Please do not auto refill. This refill negates all other refills of this medication True Metrix Glucose Test Strip RxNorm: 1 Test Strips Miscellaneous QAM 019 2019 Inactive 100/container atorvastatin 40 mg tablet RxNorm: 474756 1 Tablet(s) Oral every day 019 2019 Inactive buspirone 7.5 mg tablet RxNorm: 910554 1 Tablet(s) PO BID 019 2020 Inactive This refill negates all other refills of this medication hydrochlorothiazide 12.5 mg tablet RxNorm: 654306 1 Tablet(s) PO QAM 019 2019 Inactive levmetamfetamine 50 mg nasal inhaler RxNorm: 1 Unit(s) NASAL Q3-4H Do not use more than every 3 hours or 8 times/24hours 019 2021 Inactive Please do not auto refill. This refill negates all other refills of this medication Ventolin HFA 90 mcg/actuation aerosol inhaler RxNorm: 421963 2 Puff(s) INH QID 019 2018 Inactive Please do not fill early. Please do not auto refill. This refill negates all other refills of this medication Singulair 10 mg tablet RxNorm: 694859 1 Tablet(s) PO daily 019 2019 Inactive This refill negates all other refills of this medication cetirizine 10 mg tablet RxNorm: 1725960 1 Tablet(s) PO daily 019 2019 Inactive This refill negates all other refills of this medication. Please do not auto refill levothyroxine 50 mcg tablet RxNorm: 506112 1 Tablet(s) PO daily 019 2019 Inactive This refill negates all other refills of this medication diclofenac sodium 75 mg tablet,delayed release RxNorm: 012667 1 Tablet(s) PO BID 019 2019 Inactive This refill negates all other refills of this medication ranitidine 150 mg tablet RxNorm: 523497 1 Tablet(s) PO BID 019 2018 Inactive This refill negates all other refills of this medication Calcium 600-D3 Plus (mag-zinc) 600 mg calcium-800 unit-50 mg tablet RxNorm: 1 Tablet(s) PO daily take an additonal tablet for itching. 019 2018 Inactive This refill negates all other refills of this medication albuterol sulfate 2.5 mg/3 mL (0.083 %) solution for nebulization RxNorm: 932311 1 Vial INH QID 019 2018 Inactive 60/box. This refill negates all other refills of this medication. Please do not fill early. Please do not auto refill. lisinopril 2.5 mg tablet RxNorm: 614481 1 Tablet(s) PO daily 019 2019 Inactive gabapentin 300 mg capsule RxNorm: 623788 1 Capsule(s) PO TID 019 2019 Inactive atorvastatin 20 mg tablet RxNorm: 098946 1 Tablet(s) PO QHS 019 2018 Inactive This refill negates all other refills of this medication TRUEplus Lancets 30 gauge RxNorm: 1 Lancets Miscellaneous QAM 019 2018 Inactive 100/box gabapentin 300 mg capsule RxNorm: 975918 1 Capsule(s) PO TID 019 2018 Inactive Flintstones Complete (iron) 18 mg iron chewable tablet RxNorm: 1 Tablet(s) PO daily 019 2021 Inactive This refill negates all other refills of this medication gabapentin 300 mg capsule RxNorm: 998787 1 Capsule(s) PO TID as needed 2018 Inactive True Metrix Glucose Test Strip RxNorm: 1 Test Strips Miscellaneous QAM 019 2018 Inactive 100/container Alcohol Prep Pads RxNorm: 621688 1 Patch TOP QAM 2018 Inactive TRUEplus Lancets 30 gauge RxNorm: 1 Lancets Miscellaneous QAM 019 2018 Inactive 100/box lisinopril 2.5 mg tablet RxNorm: 548302 1 Tablet(s) PO daily 019 2018 Inactive ranitidine 150 mg tablet RxNorm: 962966 1 Tablet(s) PO BID 019 2018 Inactive This refill negates all other refills of this medication albuterol sulfate 2.5 mg/3 mL (0.083 %) solution for nebulization RxNorm: 141535 1 Vial INH QID 019 2018 Inactive [...] this medication gabapentin 300 mg capsule RxNorm: 183432 1 Capsule(s) PO TID as needed 019 2018 Inactive atorvastatin 20 mg tablet RxNorm: 125301 1 Tablet(s) PO QHS 019 2018 Inactive This refill negates all other refills of this medication trazodone 50 mg tablet RxNorm: 422027 1 Tablet(s) PO QHS 019 2018 Inactive This refill negates all other refills of this medication Ventolin HFA 90 mcg/actuation aerosol inhaler RxNorm: 853364 2 Puff(s) INH QID 019 2018 Inactive Please do not fill early. Please do not auto refill. This refill negates all other refills of this medication Calcium 600-D3 Plus 600 mg calcium-800 unit-50 mg tablet RxNorm: 1 Tablet(s) PO daily take an additonal tablet for itching. 019 2018 Inactive This refill negates all other refills of this medication Singulair 10 mg tablet RxNorm: 678830 1 Tablet(s) PO daily 019 2018 Inactive This refill negates all other refills of this medication buspirone 7.5 mg tablet RxNorm: 133137 1 Tablet(s) PO BID 019 2018 Inactive This refill negates all other refills of this medication diclofenac sodium 75 mg tablet,delayed release RxNorm: 541826 1 Tablet(s) PO BID 019 2018 Inactive This refill negates all other refills of this medication hydrochlorothiazide 12.5 mg tablet RxNorm: 030105 1 Tablet(s) PO QAM 019 2018 Inactive metoprolol succinate ER 50 mg tablet,extended release 24 hr RxNorm: 891482 1 Tablet(s) PO daily 019 2018 Inactive This refill negates all other refills of this medication levothyroxine 50 mcg tablet RxNorm: 403287 1 Tablet(s) PO daily 019 2018 Inactive This refill negates all other refills of this medication cetirizine 10 mg tablet RxNorm: 9627607 1 Tablet(s) PO daily 019 2018 Inactive This refill negates all other refills of this medication. Please do not auto refill Flintstones Complete (iron) 18 mg iron chewable tablet RxNorm: 1 Tablet(s) PO daily 019 2018 Inactive This refill negates all other refills of this medication buspirone 7.5 mg tablet RxNorm: 289952 1 Tablet(s) PO BID 019 2018 Inactive cetirizine 10 mg tablet RxNorm: 3734695 1 Tablet(s) PO daily 2018 Inactive Guaiasorb DM 10 mg-100 mg/5 mL oral liquid RxNorm: 003841 10 Milliliter(s) PO As needed every 4 hr 2018 Inactive Vicks Vaporub 4.7 %-1.2 %-2.6 % topical ointment RxNorm: 6356340 1 Application TOP TID 2018 Inactive levmetamfetamine 50 mg nasal inhaler RxNorm: 1 Unit(s) NASAL Q3-4H 2017 Inactive sertraline 50 mg tablet RxNorm: 175096 1 Tablet(s) PO daily 018 2018 Inactive Please note dose trazodone 50 mg tablet RxNorm: 209523 1 Tablet(s) PO QHS 018 2018 Inactive sertraline 50 mg tablet RxNorm: 548829 1 Tablet(s) PO daily 018 2017 Inactive amoxicillin 500 mg tablet RxNorm: 236077 1 Tablet(s) PO Q12H 018 2017 Inactive albuterol sulfate 2.5 mg/3 mL (0.083 %) solution for nebulization RxNorm: 513313 1 Vial INH QID 018 2018 Inactive 60/box. Please do not fill early. Please do not auto refill. Prozac 10 mg capsule RxNorm: 892479 1 Capsule(s) PO daily 018 2017 Inactive buspirone 7.5 mg tablet RxNorm: 076598 1 Tablet(s) PO BID 018 2018 Inactive gabapentin 300 mg capsule RxNorm: 959104 1 Capsule(s) PO TID as needed 2018 Inactive hydrochlorothiazide 12.5 mg tablet RxNorm: 221032 1 Tablet(s) PO QAM 018 2018 Inactive ranitidine 150 mg tablet RxNorm: 263845 1 Tablet(s) PO BID 018 2018 Inactive Macrobid 100 mg capsule RxNorm: 508997 1 Capsule(s) PO Q12H 018 2017 Inactive Singulair 10 mg tablet RxNorm: 842059 1 Tablet(s) PO daily 018 2018 Inactive Ventolin HFA 90 mcg/actuation aerosol inhaler RxNorm: 8302372 2 Puff(s) INH QID 018 2018 Inactive Singulair 10 mg tablet RxNorm: 268719 1 Tablet(s) PO daily 018 2017 Inactive buspirone 7.5 mg tablet RxNorm: 357431 1 Tablet(s) PO BID 018 2017 Inactive Prozac 10 mg capsule RxNorm: 917907 1 Capsule(s) PO daily 018 2017 Inactive diclofenac sodium 75 mg tablet,delayed release RxNorm: 781099 1 Tablet(s) PO BID 018 2017 Inactive lisinopril 2.5 mg tablet RxNorm: 876254 1 Tablet(s) PO daily 018 2017 Inactive [facility] Pediatric Sinus Rinse Refill packet RxNorm: 1 Unit Dose NASAL PRN 018 2021 Inactive metoprolol succinate ER 50 mg tablet,extended release 24 hr RxNorm: 549537 1 Tablet(s) PO daily 018 2017 Inactive levothyroxine 50 mcg tablet RxNorm: 325739 1 Tablet(s) PO daily 018 2017 Inactive TRUEplus Lancets 30 gauge RxNorm: 1 Lancets Miscellaneous QAM 018 2017 Inactive 100/box Ventolin HFA 90 mcg/actuation aerosol inhaler RxNorm: 461430 2 Puff(s) INH QID 018 2017 Inactive Aleve 220 mg capsule RxNorm: 3702303 1 Capsule(s) PO BID 018 2018 Inactive ranitidine 150 mg tablet RxNorm: 310939 1 Tablet(s) PO BID 018 2017 Inactive gabapentin 300 mg capsule RxNorm: 516910 1 Capsule(s) PO TID as needed 018 2017 Inactive atorvastatin 20 mg tablet RxNorm: 822135 1 Tablet(s) PO QHS 018 2017 Inactive True Metrix Glucose Test Strip RxNorm: 1 Test Strips Miscellaneous QAM 018 2017 Inactive 50/container Calcium 600-D3 Plus 600 mg calcium-800 unit-50 mg tablet RxNorm: 1 Tablet(s) PO daily take an additonal tablet for itching. 018 2017 Inactive hydrochlorothiazide 12.5 mg tablet RxNorm: 251571 1 Tablet(s) PO QAM 018 2017 Inactive Flintstones Complete (iron) 18 mg iron chewable tablet RxNorm: 1 Tablet(s) PO daily 018 2017 Inactive True Metrix Glucose Meter RxNorm: miscellaneous 019 2018 Inactive sertraline 50 mg tablet RxNorm: 474613 1 Tablet(s) PO daily 020 2019 Inactive loperamide 2 mg tablet RxNorm: 762229 oral 019 2018 Inactive d-mannose oral powder RxNorm: PO 018 2021 Inactive Symbicort 160 mcg-4.5 mcg/actuation HFA aerosol inhaler RxNorm: 4980511 2 Puff(s) INH BID 019 2018 Inactive Medication Administered No Medication Administered data Results Observation Observation Code Item Item Code Result Date S ervice Location COMPLETE CBC W/ DIFF WBC 79191 WBC 6690-2 7.8 K/ul 05/06/2023 [facility] [address] [place], [place] [address]JPDFETPN CBC W/ DIFF [id number] M/uL05/06/2023 [facility] [address] [place], [place] [address]TGRWPCPS CBC W/ DIFF OPL09984Bdzacdzooy155-145.5 g/dL05/06/2023 [facility] [address] [place], [place] [address]YWHFOUKU CBC W/ DIFF ENZ19625Ybudhptjoo8998-217.6 %05/06/2023 [facility] [address] [place], [place] [address]POBTMYJP CBC W/ DIFF HEK96854EZY296-812.1 fL05/06/2023 [facility] [address] [place], [place] [address]RWNPPQXR CBC W/ DIFF FEP18112TWG580-946.7 pg05/06/2023 [facility] [address] [place], [place] [address]TEFZXSEQ CBC W/ DIFF WSA55347GCZS101-662.3 g/dL05/06/2023 [facility] [address] [place], [place] [address]EFOAWWHK CBC W/ DIFF VXP08082KYK535-396.2 %05/06/2023 [facility] [address] [facility] [place] [address]URUAWOKP CBC W/ DIFF DCB24273Ejqiahvq Qngjf266-1987 K/uL05/06/2023 [facility] [address] [facility] [place] [address]XFEGVBXN CBC W/ DIFF PWG58951GRV75991-09.9 fL05/06/2023 [facility] [address] [place], [place] [address]YEZCDBMJ CBC W/ DIFF NPG11659Eikogmraxdt %770-859.2 %05/06/2023 [facility] [address] [place], [place] [address]HXKVKAUQ CBC W/ DIFF NZI14990Lpyzqiccgyx %736-928.1 %05/06/2023 [facility] [address] [place], [place] [address]NSAYQNNN CBC W/ DIFF JZX99180Ombwjfgob %5905-57.1 %05/06/2023 [facility] [address] [place], [place] [address]KYYYKVOM CBC W/ DIFF PJR31345Auaaktzwsih %713-85.0 %05/06/2023 [facility] [address] [place], [place] [address]BFAMOGEY CBC W/ DIFF YQT47425Hsmkoujwh%706-20.6 %05/06/2023 [facility] [address] [facility] [place] [address]BMKRVRIL CBC W/ DIFF YWT74595Pbhggpzz Yhcsdwufyb222-22673 /ul 05/06/2023 [facility] [address] [place], [place] [address]OLICSNKX CBC W/ DIFF LAC02266Yapdlqqm Nzsxlxmhbh90879-76553 /ul 05/06/2023 [facility] [address] [place], [place] [address]SQDASFKX CBC W/ DIFF YGE84799Sgnuvszo Hwxeujsi375-3139 /ul 05/06/2023 [facility] [address] [place], [place] [address]NTGPKFTK CBC W/ DIFF MZZ27637Pgguhyem Eurtifgvcb570-0606 /ul 05/06/2023 [facility] [address] [place], [place] [address]ICJNQCON CBC W/ DIFF DEB44409Vqchmsby Wqmyetgi652-393 /ul05/06/2023 [facility] [address] [place], [place] [address]WKX - TJZG12875BRE3406-145 mg/dL05/05/2023 [facility] [address] [facility] [place] [address]SXK - KJCF36150QFH13163-856 %05/05/2023 [facility] [address] [facility] [place] [address]LEXDXIGEYRJN (URINE)98263Utrexqaliubb08524-00.3 mg/dL05/05/2023 [facility] [address] [facility] [place] [address]NPRLQAQEPEEH (URINE)76766Ubgnbfeltduo/Creatinine Zmotp00544-005 MCG/XEJBCMB6805/05/2023 [facility] [address] [facility] [place] [address]VMMJBESHRMLF (URINE)150[address]Xskdi Thotcrhaoi1627-273.70 mg/dL 05/05/[address] [facility] [address] [facility] [place] [address]BNYCZE LDL - SVOW33002MBM-Nlcbyh34698-423 mg/dL05/05/2023 [facility] [address] [place], [place] [address]SPFCSIZOAYIQI55256Xhdekqrmsybva2983-8094 mg/dL05/05/2023 [facility] [address] [place], [place] [address]XSUKFESAZLREY[address]GJIS33858-976 mg/dL05/05/[address] [facility] [address] [facility] [place] [address]VKAATKDSJJW37[address]Uudhagjvisp7709-0331 mg/dL05/05/2023 [facility] [address] [place], [place] [address]VAMPBCS M33776Locbxpk N80296-828.4 ng/mL05/05/2023 [facility] [address] [place], [place] [address]IAHHQVTJOE17315Omajrudnxf03375-799 mg/dL05/05/2023 [facility] [address] [place] [address] Procedures Procedure Codes Date Urinalysis, dip stick CPT-4: 73163 05/04/2023 Glucose Blood Test CPT-4: 55726 05/04/2023 Urinalysis, dip stick Leukocytes:/Moderate, Nitrite:/Negative, Urobilinogen:/0.2, Protein:/Negative, Ph:/5.0, Blood:/Negative, Specific [place]:/1.005, Ketone:/Negative, Bilirubin:/Negative, Glucose:/NegativeCPT-4: 45631Hbabnyv67/02/2023Semmes Fany AssessmentCPT-4: DSWA01/27/2023Fall Risk AssessmentCPT-4: DFRA 01/27/2023HypertensionCPT-4: HTN01/27/2023atient Health QuestionnaireCPT-4: DPHQ11/23/2022ain ScreeningCPT-4: PAS2022Tobacco Assessment/ScreeningCPT- 4: TCA2022HypertensionCPT-4: HTN08/17/2022emmes Fany AssessmentCPT- 4: DSWA04/19/2022atient Health QuestionnaireCPT-4: DPHQ04/19/2022nnual Wellness Visit (Subsequent Visit)CPT-4: F515518atient Health QuestionnaireCPT-4: DPHQ10/07/2021Frailty ScreeningCPT-4: SFD05/20/2021 HypertensionCPT-4: HTN04/01/2021Tobacco Assessment/ScreeningCPT-4: TCA03/13/2021 Patient Health QuestionnaireCPT-4: DPHQ03/13/2021Mini Mental State ExamCPT-4: DMMA01/29/2021nnual Wellness Visit (Subsequent Visit)CPT-4: T501771 Advanced Care PlanningCPT-4: VACP01/13/2021Fall Risk AssessmentSNOMED CT: 536534701 CPT-4: DFRA01/13/2021emmes Fany AssessmentCPT-4: DSWA12/17/2020Urinalysis, dip stickCPT-4: 9665177Patient Health QuestionnaireCPT-4: DPHQ 08/19/2020ElectrocardiogramCPT-4: 1078134Tobacco Assessment/Screening CPT-4: TCA01/01/2020Fall Risk AssessmentSNOMED CT: 959650496 CPT-4: DFRA01/01/2020Functional AssessmentCPT-4: DFA01/01/2020Semmes Fany AssessmentCPT-4: DSWA11/28/2019Patient Health QuestionnaireCPT-4: DPHQ11/28/2019 [place] Fany AssessmentCPT-4: DSWA10/17/2019HypertensionCPT-4: HTN10/17/[address]: 282937796 CPT-4: DFRA09/19/2019Functional AssessmentCPT-4: DFA111/20/2018Urinalysis, dip stickCPT-4: 9604984Tobacco Assessment/ScreeningCPT-4: TCA05/24/2019 Patient Health QuestionnaireCPT-4: DPHQ05/24/2019AHA/REBECCA Classification AssessmentCPT-4: DAHA04/25/2019Controlled Substance ReportCPT-4: CTRSU04/25/2019 Urinalysis, dip stickCPT-4: 5943294Urinalysis, dip stickCPT-4: 16137 03/28/20192340C4W-IgwxfereuenqramRTE-1: 91945OgqtgucM2C-HpejssstxlhkrurXYM-3: 65635 ExxduktK4O-OlhhvncaqacvfjpBNS-5: 29352WovqsfaA9Y-TmcqxeaihxhbedmCMF-1: 69598 JompjbgV8J-NkmnjrnfgbnxqqhPBI-0: 29533PssjiztG5Z-QflcbznigxdsrypBSX-2: 27334 MohoqgsK1G-UntwmcooltqitwoRMY-2: 19014NunlxkdQ2I-DdskjswrphbfpudIIJ-6: 69331 AoutdupZ6V-QzocvlkqgukdqykUUU-5: 17827MejrwsbV8Y-GzqmoeesftgusevAWD-3: 80916 LgqflkyL7U-YaiugbefpihbfpbNOB-7: 86276UrqnddxW5G-LffzyvyvofickghTXU-9: [address]: 382901881 CPT-4: R64Qdoixnf Vital Signs Date Vital 05/04/2023 Blood Pressure 1: 114/76 Code: 8480-6 BMI: 78.8 Code: 45609-7 Heart Rate 1: 70 bpm Height: 4' Code: 8302-2 Random Blood Sugar: 108/NaN Respiratory Rate: 16 bpm SpO2: 98% Temperature: 36.7 (C) / 98.1 (F) Weight: 258 lbs 4 oz Code: 40719-9 Reason For Visit Reason For Visit Effective Dates Notes diabetes mellitus 05/04/2023 HTN 05/04/2023 hyperlipidemia disease 05/04/2023 seizure disorder 05/04/2023 Interim health update 05/04/2023 Encounters Encounter Performer Location Location Address Codes Magdi e ([id number]) Home or Residence Vi sit Est Pt - Moderate Level, 40 mins Diagnosis: Type 2 diabetes mellitus with peripheral neuropathy[ICD10: E11.42] Diagnosis: Hyperlipidemia, mixed[ICD10: E78.2] Diagnosis: Hypertensive heart disease without heart failure[ICD10: I11.9] Diagnosis: Major depression, recurrent[ICD10: F33.9] Diagnosis: Vitamin D deficiency[ICD10: E55.9] Diagnosis: Nonintractable 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 or MDI q 4 hrs. prn dyspnea, tolerating CPAP for a few hours nightly continue with Field Placement Director Jose BOWMAN K21.9 GERD (gastroesophageal reflux disease) symptoms improved, will continue omeprazole to 40mg atHS, continue famotidine, probiotic E11.42 Type 2 diabetes mellitus with peripheral neuropathy, Z68.43 Adult BMI 50.0-59.9 kg/sq m testing BS bid, range 99-133 continue Ozempic 1mg per week and gabapentin continue with Kerrie Panyda OD at [facility] trying to be more active, has step goal of 4000 steps daily, also limiting soda intake G47.00-780.52 Insomnia F33.9-296.30 Major depression, recurrent started on trazodone 50mg by Nichole Hernández, psychology for sleep issues patient feels sleep and mood much improved with this medication continue taking sertraline, buspirone Rexulti continue with [facility] [place] E78.2 Hyperlipidemia, mixed patient has re-started atorvastatin continue Mediterranean style eating E55.9 Vitamin D deficiency continue cholecalciferol refill sent 05/04/2023atient Education: MrtbtmiqKbaalphie32/02/2023atient Education: Patient Medication SlkvrmaXbxdncnpf06/02/2023atient Education: Seizures Ifezgrhqr15/02/2023atient Education: IomboyfzzfaiWmojejhqu16/02/2023atient Education: EdrcoutCfqcuaklh51/02/2023ppointment: Anna Culver WPtel: [phone] [place] [address] [id number]: Anna Culver WPtel: [address] [place] [address] [id number]: Anna Culver WPtel: [address] [place] [address] [id number]: Anna Culver WPtel: [address] [place] [address] [id number]/17/2021ppointment: Anna Culver WPtel: [phone] [place] [address] [id number]: Chivo Bishop WPtel: [address] [place] [address] [id number]: Chivo Bishop WPtel: [address] [place] [address] [id number]/ppointment: Mikey Nair WPtel: [address] [facility] [id number]: Chivo Bishop WPtel: [phone] [place] [address] [id number]: Chivo Bishop WPtel: [address] [place] [address] [id number]: Chivo Bishop WPtel: [address] [place] [address] USETV111/11/2020ppointment: Chivo Bishop WPtel: [address] [place] [address] USETV110/13/2020ppointment: Chivo Bishop WPtel: [address] [place] [address] USETV1ppointment: Chivo Bishop WPtel: [address] [place] [address] OHTGMI1306/10/2021ppointment: Anna Culver WPtel: [address] [place] [address] USETV06/02/2021ppointment: Chivo Bishop WPtel: [address] [place] [address] USETV05/20/2021ppointment: Anna Culver WPtel: [address] [place] [address] USETV04/28/2021ppointment: Chivo Bishop WPtel: [phone] [place] [address] USETV04/15/2021ppointment: Anna Culver WPtel: [phone] [address] [id number]: Anna Culver WPtel: [phone] [place] [address] USETV03/24/2021ppointment: Anna Culver WPtel: [phone] [place] [address] USETV03/13/2021ppointment: Anna Culver WPtel: [phone] [place] [address] [id number]: Chivo Bishop WPtel: [phone] [place] [address] [id number]: Anna Culver WPtel: [phone] [place] [address] USETV01/13/2021ppointment: Anna Culver WPtel: [phone] [place] [address] [id number]: Chivo Bishop WPtel: [phone] [place] [address] USET11/28/2020ppointment: Anna Culver WPtel: [phone] [place] [address] USET11/24/2020ppointment: Anna Culver WPtel: [phone] [place] [address] [id number]: Anna Culver WPtel: [phone] [place] [address] [id number]: Anna Culver WPtel: [phone] [place] [address] USET08/26/2020Appointment: Anna Culver WPtel: [phone] [facility] [address] [place] [address] USETV11/Appointment: Anna Culver WPtel: [phone] [place] [address] USETV10Appointment: Anna Culver WPtel: [phone] [place] [address] USETV10/03/2020Appointment: Gianna Birmingham MCtel: [address] [facility] [address] [id number]: Anna Culver WPtel: [phone] [place] [address] JPT64069/06/2020Appointment: Anna Culver WPtel: [address] [place] [address] SUI42565/09/2020Appointment: Anna Culver WPtel: [phone] [place] [address] [id number]/Appointment: Anna Culver WPtel: [phone] [place] [address] [place] [address] [id number]/Appointment: Anna Culver WPtel: [phone] [place] [address] [place] [address] [id number]/Appointment: Anna Culver WPtel: [phone] [place] [address] [place] [address] [id number]/Appointment: Anna Culver WPtel: [phone] [place] [address] [place] [address] [id number]/Appointment: Anna Culver WPtel: [phone] [place] [address] [place] [address] [id number]: Anna Culver WPtel: [address] [place] [address] [place], [place] [id number]: Anna Culver WPtel: [address] [place] [address] [place], [place] [id number] MOS6956411/20/2018Appointment: Maricarmen Sudha WPtel: [address] [facility] [address] [id number]: Lori Hernadezmina WPtel: [address] [facility] [address] [id number]: Charlene Oropeza WPtel: [address] [facility] b [id number]: Enedelia Delgado45Appointment: Charlene Oropeza WPtel: [address] [facility] [address] [id number]: Haupricht, Rasta WPtel: [address] [facility] [address] [id number]: Haupricht, Rasta WPtel: [address] [facility] [address] [id number]: Haupricht, Rasta WPtel: [address] [facility] [address] [id number]: Haupricht, Rasta WPtel: [address] [facility] [address] [id number]: Pending Gynecology Referral InformationReferral ProcessedReferral: Pending Pulmonology Referral InformationReferralProcessed Referral: Pending Psychiatry Referral InformationReferralInitiatedReferral: Pending Respiratory Services Referral InformationReferralInitiatedReferral: Pending Ophthalmology Referral InformationReferralInitiatedReferral: [facility] WPtel: [address] [facility] [address] [place] USWriter placed a call out to the patient to notify her that it has been recommended that she be seenby a urologist. Patient agreed to be seen, does not have a provider of choice and no transportationissues. Director Case faxed referral and clinical notes to [facility] in [place], [place] near the patient's home. Patient [...] seen and prefers a provider in the [place] or [place] area. Director Case placed a call out to everyone listed in the area and the only location that was able to accept the patient's insurance was [address] [address] and spoke with Maylin. Maylin asked that the patient's referral, face sheet and visit notes be faxed to . Director Case faxed over requested documents. Patient appointment confirmation letter generated and mailed to her home address. Patient to call to schedule an appointment.ProcessedReferral: [facility] WPtel: [address] [facility] [address] [id number] USPatient notified that it has been advised that she be seen by Neurology. Patient agreed to be seen and prefers to be seen by a provider in the [place], [place] area. Patient denies any concerns with transportation, and prefers to schedule her own appointment. Director Case [facility] and spoke with [...] will continue lisinopril, HCTZ; continue with [facility] Josh Simon MD; G47.33 Obstructive sleep apnea (adult), J45.909 Asthma breathing stable, continue utilization of Symbicort, albuterol via neb. or MDI q 4 hrs. prn dyspnea, tolerating CPAP for a few hours nightly continue with Field Placement Director Jose BOWMAN; K21.9 GERD (gastroesophageal reflux disease) symptoms improved, will continue omeprazole to 40mg at HS, continue famotidine, probiotic; E11.42 Type 2 diabetes mellitus with peripheral neuropathy, Z68.43 Adult BMI 50.0-59.9 kg/sq m testing BS bid, range 99-133 continue Ozempic 1mg per week and gabapentin; continue with Kerrie Pandya OD at [facility] trying to be more active, has step goal of 4000 steps daily, also limiting soda intake G47.00-780.52 Insomnia; F33.9-296.30 Major depression, recurrent started on trazodone 50mg by Nichole Hernández, psychology for sleep issues; patient feels sleep and mood much improved with this medication continue taking sertraline, buspirone; Rexulti continue with [facility] in [place]; E78.2 Hyperlipidemia, mixed patient has re-started atorvastatin continue Mediterranean style eating; E55.9 Vitamin D deficiency continue cholecalciferol refill sent 05/04/2023 Medical Equipment No Medical Equipment data Advance Directives No Advance Directive data
--- OUTSIDE RECORDS SUMMARY | 2024-01-03 23:26 | XMS_ITS | CCD ---
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 Name Role Phone Palomo KING, Anna Primary Care Provider Unav ailable Unavailable Chronic Care Management Unavaila ble Summary Purpose DataExchange Insurance Providers Payer name Policy type / Coverage type Covered constitution party ID Effective Begin Date Effective End Date [facility] [id number] Unknown Unknown Family history Mother Diagnosis Age [...] 05/31/2018 Education level Unknown Some High School 10th05/31/20182144AifswhkmbrSucxareVmjrsswwzi20/29/2018Tobacco historySNOMED CT: [id number] never smoked or chewed pfzxwer6205/31/2018Alcohol historySNOMED CT: [id number] drinks [id number]/31/2018Has the patient ever used illegal drugs? UnknownHas never used illegal drugs05/31/2018DNR Order/ Advanced Directive UnknownFull Code05/31/2018 Allergies, Adverse Reactions, Alerts Substance Reaction Codes Entered Date Inactivated Date Status OxyContin itch, RxNorm: 841984 01/13/2021 No Inactive Da te Active *No known food allergies Quebabw5809/06/2018No Inactive DateActiveMethylprednisolonehivesRxNorm: 6902 09/06/2018No Inactive DateActive Problems Condition Codes Effective Dates Condition St atus GERD (gastroesophageal reflux disease) I CD-10: K21.9 ICD-9: 530.8112/03/2019ActiveMajor depression, recurrentICD-10: F33.9 ICD-9: 296.3009/ctiveObstructive sleep apnea (adult) (pediatric)ICD-10: G47.33 ICD-9: 327.2309/ActiveType 2 diabetes mellitus with peripheral neuropathy ICD-10: E11.42 ICD-9: 250.6002/ActiveAsthmaICD-10: J45.909 ICD-9: 493.9011/03/2018ActiveHypertensive heart diseaseICD-10: I11.9 ICD-9: 402.9003/ctive(Z00.00-V70.9) Encounter for [...] kg/sq mICD-10: Z68.43 ICD-9: V85.4308/ActiveHypertensionICD-10: I10 ICD-9: 401.903/03/2022ActivePost-traumatic stress disorder, unspecifiedICD-10: F43.10 ICD-9: 309.8112ActiveAdjustment disorder with mixed anxiety and depressed moodICD-10: F43.23 ICD-9: 309.2812ActiveHypothyroidICD-10: E03.9 ICD-9: 244.912ActiveHyperlipidemia, mixedICD-10: E78.2 ICD-9: 272.2032ActiveAllergic rhinitisICD-10: J30.9 ICD-9: 477.9012/03/2021ctiveEdema, unspecifiedICD-10: R60.9 ICD-9: [...] Fill Instructions lisinopril 2.5 mg tablet RxNorm: 432585 Take 1 Tablet(s) Oral every day 023 2022 Inactive Msg From [facility]: Dr. Zapata Requested Ozempic 1 mg/dose (4 mg/3 mL) subcutaneous pen injector RxNorm: 3818782 USE 1 UNIT DOSE SUBCUTANEOUSLY ON TUE OF EACH WEEK 2022 Inactive omeprazole 40 mg capsule,delayed release RxNorm: 236802 Take 1 Capsule(s) Oral every night at bedtime 023 2022 Inactive gabapentin 300 mg capsule RxNorm: 915985 Take 1 Capsule(s) Oral three times a day 023 2022 Inactive montelukast 10 mg tablet RxNorm: 177478 Take 1 Tablet(s) Oral every day 023 2022 Inactive omeprazole 20 mg capsule,delayed release RxNorm: 052534 Take 1 Capsule(s) Oral every evening 2022 Inactive Alcohol Prep Pads RxNorm: 397225 USE EACH MORNING 022 2021 Inactive E11.42 clotrimazole 1 % topical cream RxNorm: 809333 Apply 1 Application Topical two times a day as needed apply to affected area(s) twice daily until healed 2021 Inactive Victoza 2-Sebastián 0.6 mg/0.1 mL (18 mg/3 mL) subcutaneous pen injector RxNorm: 531638 Inject 0.6-1.8 Milligram(s) Subcutaneous once a week Inject 0.6mg/0.1ml week one, 1.2mg/0.2ml week two, 1.8/0.3ml weekly thereafter 2021 Inactive ibuprofen 800 mg tablet RxNorm: 865899 Take 1 Tablet(s) Oral Q8H as needed for pain take with food No Stop Date Active Ozempic 1 mg/dose (4 mg/3 mL) subcutaneous pen injector RxNorm: 2391132 Take 1 Unit Dose Subcutaneous QWeek Tuesday2021 Inactive lisinopril 2.5 mg tablet RxNorm: 343395 Take 1 Tablet(s) Oral every day 022 2021 Inactive lisinopril 2.5 mg tablet RxNorm: 698069 Take 1 Tablet(s) Oral every day 022 2022 Inactive hydrochlorothiazide 25 mg tablet RxNorm: 245365 Take 1 Tablet(s) Oral every day 022 2021 Inactive Ozempic 1 mg/dose (4 mg/3 mL) subcutaneous pen injector RxNorm: 2819029 Take 1 Unit Dose Subcutaneous QWeek 022 2021 Inactive famotidine 20 mg tablet RxNorm: 500348 Take 1 Tablet(s) Oral every morning 2021 Inactive levothyroxine 50 mcg tablet RxNorm: 086257 Take 1 Tablet(s) Oral every day 2021 Inactive atorvastatin 20 mg tablet RxNorm: 802088 Take 1 Tablet(s) Oral every night at bedtime 2021 Inactive Cleocin T 1 % lotion RxNorm: 976923 Take 2 Gram(s) Topical every day 022 2021 Inactive Cleocin T 1 % lotion RxNorm: 023627 Take 2 Gram(s) Topical every day 022 2021 Inactive Ozempic 1 mg/dose (4 mg/3 mL) subcutaneous pen injector RxNorm: 3937614 Take 1 Unit Dose Subcutaneous QWeek 022 2021 Inactive Ozempic 0.25 mg or 0.5 mg (2 mg/1.5 mL) subcutaneous pen injector RxNorm: 0782672 INJECT 0.5 MGS SUBCUTANEOUSLY EVERY WEEK 022 2021 Inactive omeprazole 20 mg capsule,delayed release RxNorm: 720583 Take 1 Capsule(s) Oral every evening 022 2021 Inactive levothyroxine 50 mcg tablet RxNorm: 244188 Take 1 Tablet(s) Oral every day 022 05/23/ 2022 Inactive atorvastatin 20 mg tablet RxNorm: 246421 Take 1 Tablet(s) Oral every night at bedtime 2021 Inactive This refill negates all other refills of this medication lisinopril 2.5 mg tablet RxNorm: 823472 Take 1 Tablet(s) Oral every day 022 2021 Inactive gabapentin 300 mg capsule RxNorm: 706831 Take 1 Capsule(s) Oral three times a day 2021 Inactive montelukast 10 mg tablet RxNorm: 368383 Take 1 Tablet(s) Oral every day 2021 Inactive Myrbetriq 50 mg tablet,extended release RxNorm: 8063683 1 Tablet(s) Oral every day No Stop Date Active cholecalciferol (vitamin D3) 50 mcg (2,000 unit) tablet RxNorm: 166396 Take 1 Tablet(s) Oral every day 2022 Inactive Ozempic 0.25 mg or 0.5 mg (2 mg/1.5 mL) subcutaneous pen injector RxNorm: 0258972 inject 0.5 milligrams subcutaneously every week 2021 Inactive Ozempic 0.25 mg or 0.5 mg (2 mg/1.5 mL) subcutaneous pen injector RxNorm: 2973620 Take 0.5 Capsule(s) Injection once a week 2021 Inactive omeprazole 20 mg capsule,delayed release RxNorm: 522748 Take 1 Capsule(s) Oral every evening 2020 Inactive Ozempic 0.25 mg or 0.5 mg (2 mg/1.5 mL) subcutaneous pen injector RxNorm: 6716244 Take 0.25 Milligram(s) Subcutaneous once a week 2021 Inactive Easy Touch Alcohol Prep Pads RxNorm: 632138 USE DIRECTED EACH MORNING 021 2021 Inactive Probiotic 10 billion cell capsule RxNorm: 4911524 Take 1 Capsule(s) Oral every day 2021 Inactive levothyroxine 50 mcg tablet RxNorm: 525543 Take 1 Tablet(s) Oral every day 021 2020 Inactive Acid Milieu Manager (famotidine) 20 mg tablet RxNorm: 177867 Take 1 Tablet(s) Oral every morning 021 2020 Inactive Heartburn Relief (famotidine) 10 mg tablet RxNorm: 144868 Take 1 Tablet(s) Oral QAM 021 2020 Inactive levothyroxine 50 mcg tablet RxNorm: 046028 Take 1 Tablet(s) Oral QD 021 2020 Inactive Singulair 10 mg tablet RxNorm: 034585 TAKE (1) TABLET BY MOUTH DAILY 2020 Inactive metformin 1,000 mg tablet RxNorm: 222541 1 Tablet(s) Oral two times a day 2021 Inactive lisinopril 2.5 mg tablet RxNorm: 164545 Take 1 Tablet(s) Oral every day 021 2020 Inactive hydrochlorothiazide 25 mg tablet RxNorm: 600444 Take 1 Tablet(s) Oral every day 021 2020 Inactive ondansetron 4 mg disintegrating tablet RxNorm: 171704 1 Tablet(s) Oral two times a day 021 2020 Inactive Sudafed 12 Hour 120 mg tablet,extended release RxNorm: 7539775 TAKE 1 TABLET BY MOUTH EVERY 12 HOURS NEEDED 2021 Inactive Heartburn Relief (famotidine) 10 mg tablet RxNorm: 634433 Take 1 Tablet(s) Oral every morning 021 2020 Inactive omeprazole 20 mg capsule,delayed release RxNorm: 264794 1 Capsule(s) Oral every evening 021 2020 Inactive sertraline 100 mg tablet RxNorm: 858628 2 Tablet(s) Oral every day 021 2020 Inactive levothyroxine 50 mcg tablet RxNorm: 974381 TAKE (1) TABLET BY MOUTH DAILY 021 2020 Inactive metformin 500 mg tablet RxNorm: 235893 1 Tablet(s) Oral two times a day take with 500mg to equal 1000mg 021 2020 Inactive gabapentin 300 mg capsule RxNorm: 812027 TAKE 1 CAPSULE BY MOUTH THREE TIMES A DAY 021 2020 Inactive lisinopril 2.5 mg tablet RxNorm: 544398 TAKE 1 TABLET BY MOUTH DAILY 021 2020 Inactive gabapentin 300 mg capsule RxNorm: 093383 TAKE 1 CAPSULE BY MOUTH THREE TIMES A DAY 021 2020 Inactive Singulair 10 mg tablet RxNorm: 825003 TAKE (1) TABLET BY MOUTH DAILY 021 2020 Inactive metformin 1,000 mg tablet RxNorm: 979497 1 Tablet(s) Oral two times a day 021 2020 Inactive atorvastatin 40 mg tablet RxNorm: 952595 1 Tablet(s) Oral every day 021 2020 Inactive omeprazole 20 mg capsule,delayed release RxNorm: 870035 1 Capsule(s) Oral every evening 021 2020 Inactive famotidine 10 mg tablet RxNorm: 984987 1 Tablet(s) Oral every morning 021 2020 Inactive Alcohol Prep Pads RxNorm: 853102 USE EACH MORNING 021 2020 Inactive omeprazole 20 mg capsule,delayed release RxNorm: 859347 1 Capsule(s) Oral two times a day 021 2021 Inactive omeprazole 20 mg capsule,delayed release RxNorm: 889903 TAKE 1 CAPSULE BY MOUTH EVERY DAY 021 2021 Inactive Macrobid 100 mg capsule RxNorm: 876807 1 Capsule(s) Oral every 12 hours with food 2020 Inactive omeprazole 20 mg capsule,delayed release RxNorm: 299733 1 Capsule(s) Oral two times a day 2021 Inactive metformin 1,000 mg tablet RxNorm: 229200 1 Tablet(s) Oral two times a day 2020 Inactive start on September 11, 2020 metformin 500 mg tablet RxNorm: 349189 1 Tablet(s) Oral two times a day take with 500mg to equal 1000mg 2019 Inactive gabapentin 300 mg capsule RxNorm: 534778 TAKE 1 CAPSULE BY MOUTH THREE TIMES DAILY 2020 Inactive cetirizine 10 mg tablet RxNorm: 9417754 TAKE (1) TABLET BY MOUTH DAILY 2020 Inactive metformin 500 mg tablet RxNorm: 037527 1 Tablet(s) Oral two times a day 2019 Inactive loperamide 2 mg tablet RxNorm: 170304 1 Tablet(s) Oral as needed take one tablet after each loose stool, maximum of 8 tablets in 24 hours 2021 Inactive Sudafed 12 Hour 120 mg tablet,extended release RxNorm: 4973631 TAKE 1 TABLET BY MOUTH EVERY 12 HOURS NEEDED 2019 Inactive hydrochlorothiazide 25 mg tablet RxNorm: 690111 TAKE (1) TABLET BY MOUTH EVERY DAY 2019 Inactive omeprazole 20 mg capsule,delayed release RxNorm: 870543 TAKE 1 CAPSULE BY MOUTH EVERY DAY 2020 Inactive metformin 500 mg tablet RxNorm: 861103 1 Tablet(s) Oral every day 2019 Inactive True Metrix Glucose Test Strip RxNorm: 1 Test Strips Miscellaneous two times a day as needed No Stop Date Active metformin 500 mg tablet RxNorm: 351648 1 Tablet(s) Oral every day 020 2019 Inactive diclofenac sodium 75 mg tablet,delayed release RxNorm: 142469 1 Tablet(s) PO BID 2021 Inactive This refill negates all other refills of this medication Sudafed 12 Hour 120 mg tablet,extended release RxNorm: 1230678 TAKE 1 TABLET BY MOUTH EVERY 12 HOURS NEEDED 020 2019 Inactive True Metrix Glucose Test Strip RxNorm: 1 Test Strips Miscellaneous every morning 020 2019 Inactive 100/container True Metrix Glucose Test Strip RxNorm: 1 Test Strips Miscellaneous QAM 020 2019 Inactive 100/container loperamide 2 mg tablet RxNorm: 363637 1 Tablet(s) Oral as needed take one tablet after each loose stool, maximum of 8 tablets in 24 hours 020 2019 Inactive cetirizine 10 mg tablet RxNorm: 0446116 1 Tablet(s) PO daily 2019 Inactive loperamide 2 mg tablet RxNorm: 736710 1 Tablet(s) Oral as needed take one tablet after each loose stool, maximum of 8 tablets in 24 hours 020 2019 Inactive quetiapine 100 mg tablet RxNorm: 270785 1 Tablet(s) Oral every night at bedtime 2019 Inactive levothyroxine 50 mcg tablet RxNorm: 150711 1 Tablet(s) PO daily 2020 Inactive gabapentin 300 mg capsule RxNorm: 742992 1 Capsule(s) PO TID 2019 Inactive levothyroxine 50 mcg tablet RxNorm: 159215 1 Tablet(s) PO daily 2019 Inactive lisinopril 2.5 mg tablet RxNorm: 493403 1 Tablet(s) PO daily 020 2020 Inactive gabapentin 300 mg capsule RxNorm: 231678 1 Capsule(s) PO TID 2019 Inactive cetirizine 10 mg tablet RxNorm: 3352353 1 Tablet(s) PO daily 020 2019 Inactive Singulair 10 mg tablet RxNorm: 301576 1 Tablet(s) PO daily 020 2020 Inactive gentamicin 0.3 % eye drops RxNorm: 350807 1 Drop(s) ophthalmic (eye) four times a day 020 2019 Inactive gentamicin 0.3 % eye drops RxNorm: 792114 1 Drop(s) ophthalmic (eye) four times a day 020 2019 Inactive gentamicin 0.3 % eye drops RxNorm: 552238 1 Drop(s) ophthalmic (eye) four times a day 2019 Inactive hydrochlorothiazide 25 mg tablet RxNorm: 212017 1 Tablet(s) Oral every day 2019 Inactive Sudafed 12 Hour 120 mg tablet,extended release RxNorm: 2444526 TAKE (1) TABLET BY MOUTH EVERY 12 HOURS NEEDED 2019 Inactive loperamide 2 mg tablet RxNorm: 519683 1 Tablet(s) Oral as needed take one tablet after each loose stool, maximum of 8 tablets in 24 hours 2019 Inactive loperamide 2 mg tablet RxNorm: 986119 1 Tablet(s) Oral as needed take one tablet after each loose stool, maximum of 8 tablets in 24 hours 2019 Inactive atorvastatin 40 mg tablet RxNorm: 538293 1 Tablet(s) Oral every day 2020 Inactive quetiapine 100 mg tablet RxNorm: 759304 1 Tablet(s) Oral every night at bedtime 2019 Inactive sertraline 100 mg tablet RxNorm: 606509 1 Tablet(s) Oral 2019 Inactive omeprazole 20 mg capsule,delayed release RxNorm: 778369 1 Capsule(s) Oral every day 2019 Inactive amoxicillin 250 mg capsule RxNorm: 771079 1 Capsule(s) Oral three times a day 020 2019 Inactive multivitamin with iron-mineral tablet RxNorm: 1 Tablet(s) Oral every day 2021 Inactive cetirizine 10 mg tablet RxNorm: 4376073 1 Tablet(s) PO daily 2019 Inactive This refill negates all other refills of this medication. Please do not auto refill Singulair 10 mg tablet RxNorm: 877300 1 Tablet(s) PO daily 2019 Inactive This refill negates all other refills of this medication gabapentin 300 mg capsule RxNorm: 585141 1 Capsule(s) PO TID 2019 Inactive lisinopril 2.5 mg tablet RxNorm: 343234 1 Tablet(s) PO daily 2019 Inactive levothyroxine 50 mcg tablet RxNorm: 174520 1 Tablet(s) PO daily 2019 Inactive This refill negates all other refills of this medication hydrochlorothiazide 25 mg tablet RxNorm: 115915 1 Tablet(s) Oral every day 2019 Inactive fenugreek seed extract 500 mg capsule RxNorm: 1 Capsule(s) Oral three times a day 2021 Inactive Alcohol Prep Pads RxNorm: 177718 1 Patch TOP QAM 2020 Inactive loperamide 2 mg tablet RxNorm: 654579 1 Tablet(s) Oral as needed take one [...] 2019 Inactive hydrochlorothiazide 25 mg tablet RxNorm: 120937 1 Tablet(s) Oral every day 2019 Inactive Sudafed 12 Hour 120 mg tablet,extended release RxNorm: 9752077 1 Tablet(s) Oral every 12 hours as needed 019 2018 Inactive omeprazole 20 mg capsule,delayed release RxNorm: 741656 1 Capsule(s) Oral every day 019 2019 Inactive Sudafed 12 Hour 120 mg tablet,extended release RxNorm: 8464585 1 Tablet(s) Oral every 12 hours as needed 019 2018 Inactive pantoprazole 40 mg tablet,delayed release RxNorm: 987995 1 Tablet(s) Oral every day 019 2018 Inactive discontinue any other H2Blkr. and PPI albuterol sulfate 2.5 mg/3 mL (0.083 %) solution for nebulization RxNorm: 766500 1 Vial Inhalation every four hours as needed as needed for dyspnea 2019 Inactive 60/box. This refill negates all other refills of this medication. Please do not fill early. Please do not auto refill. Symbicort 160 mcg-4.5 mcg/actuation HFA aerosol inhaler RxNorm: 3238502 2 Puff(s) INH BID No Stop Date Active Alcohol Prep Pads RxNorm: 467411 1 Patch TOP QAM 019 2019 Inactive Ventolin HFA 90 mcg/actuation aerosol inhaler RxNorm: 556645 2 Puff(s) INH QID 019 2019 Inactive Please do not fill early. Please do not auto refill. This refill negates all other refills of this medication True Metrix Glucose Test Strip RxNorm: 1 Test Strips Miscellaneous QAM 019 2019 Inactive 100/container atorvastatin 40 mg tablet RxNorm: 660304 1 Tablet(s) Oral every day 019 2019 Inactive buspirone 7.5 mg tablet RxNorm: 601328 1 Tablet(s) PO BID 019 2020 Inactive This refill negates all other refills of this medication hydrochlorothiazide 12.5 mg tablet RxNorm: 197517 1 Tablet(s) PO QAM 019 2019 Inactive levmetamfetamine 50 mg nasal inhaler RxNorm: 1 Unit(s) NASAL Q3-4H Do not use more than every 3 hours or 8 times/24hours 019 2021 Inactive Please do not auto refill. This refill negates all other refills of this medication Ventolin HFA 90 mcg/actuation aerosol inhaler RxNorm: 841853 2 Puff(s) INH QID 019 2018 Inactive Please do not fill early. Please do not auto refill. This refill negates all other refills of this medication Singulair 10 mg tablet RxNorm: 555678 1 Tablet(s) PO daily 019 2019 Inactive This refill negates all other refills of this medication cetirizine 10 mg tablet RxNorm: 6345253 1 Tablet(s) PO daily 019 2019 Inactive This refill negates all other refills of this medication. Please do not auto refill levothyroxine 50 mcg tablet RxNorm: 965259 1 Tablet(s) PO daily 019 2019 Inactive This refill negates all other refills of this medication diclofenac sodium 75 mg tablet,delayed release RxNorm: 940430 1 Tablet(s) PO BID 019 2019 Inactive This refill negates all other refills of this medication ranitidine 150 mg tablet RxNorm: 989301 1 Tablet(s) PO BID 019 2018 Inactive This refill negates all other refills of this medication Calcium 600-D3 Plus (mag-zinc) 600 mg calcium-800 unit-50 mg tablet RxNorm: 1 Tablet(s) PO daily take an additonal tablet for itching. 019 2018 Inactive This refill negates all other refills of this medication albuterol sulfate 2.5 mg/3 mL (0.083 %) solution for nebulization RxNorm: 873835 1 Vial INH QID 019 2018 Inactive 60/box. This refill negates all other refills of this medication. Please do not fill early. Please do not auto refill. lisinopril 2.5 mg tablet RxNorm: 270132 1 Tablet(s) PO daily 019 2019 Inactive gabapentin 300 mg capsule RxNorm: 648902 1 Capsule(s) PO TID 019 2019 Inactive atorvastatin 20 mg tablet RxNorm: 498927 1 Tablet(s) PO QHS 2018 Inactive This refill negates all other refills of this medication TRUEplus Lancets 30 gauge RxNorm: 1 Lancets Miscellaneous QAM 019 2018 Inactive 100/box gabapentin 300 mg capsule RxNorm: 686529 1 Capsule(s) PO TID 019 2018 Inactive Flintstones Complete (iron) 18 mg iron chewable tablet RxNorm: 1 Tablet(s) PO daily 2021 Inactive This refill negates all other refills of this medication gabapentin 300 mg capsule RxNorm: 942131 1 Capsule(s) PO TID as needed 2018 Inactive True Metrix Glucose Test Strip RxNorm: 1 Test Strips Miscellaneous QA 019 2018 Inactive 100/container Alcohol Prep Pads RxNorm: 801920 1 Patch TOP QA 2018 Inactive TRUEplus Lancets 30 gauge RxNorm: 1 Lancets Miscellaneous QAM 019 2018 Inactive 100/box lisinopril 2.5 mg tablet RxNorm: 789342 1 Tablet(s) PO daily 019 2018 Inactive ranitidine 150 mg tablet RxNorm: 517368 1 Tablet(s) PO BID 019 2018 Inactive This refill negates all other refills of this medication albuterol sulfate 2.5 mg/3 mL (0.083 %) solution for nebulization RxNorm: 702353 1 Vial INH QID 019 2018 Inactive [...] this medication gabapentin 300 mg capsule RxNorm: 831828 1 Capsule(s) PO TID as needed 019 2018 Inactive atorvastatin 20 mg tablet RxNorm: 424221 1 Tablet(s) PO QHS 019 2018 Inactive This refill negates all other refills of this medication trazodone 50 mg tablet RxNorm: 375074 1 Tablet(s) PO QHS 019 2018 Inactive This refill negates all other refills of this medication Ventolin HFA 90 mcg/actuation aerosol inhaler RxNorm: 769283 2 Puff(s) INH QID 019 2018 Inactive Please do not fill early. Please do not auto refill. This refill negates all other refills of this medication Calcium 600-D3 Plus 600 mg calcium-800 unit-50 mg tablet RxNorm: 1 Tablet(s) PO daily take an additonal tablet for itching. 019 2018 Inactive This refill negates all other refills of this medication Singulair 10 mg tablet RxNorm: 968701 1 Tablet(s) PO daily 019 2018 Inactive This refill negates all other refills of this medication buspirone 7.5 mg tablet RxNorm: 990724 1 Tablet(s) PO BID 019 2018 Inactive This refill negates all other refills of this medication diclofenac sodium 75 mg tablet,delayed release RxNorm: 411120 1 Tablet(s) PO BID 019 2018 Inactive This refill negates all other refills of this medication hydrochlorothiazide 12.5 mg tablet RxNorm: 508925 1 Tablet(s) PO QAM 019 2018 Inactive metoprolol succinate ER 50 mg tablet,extended release 24 hr RxNorm: 241168 1 Tablet(s) PO daily 019 2018 Inactive This refill negates all other refills of this medication levothyroxine 50 mcg tablet RxNorm: 190837 1 Tablet(s) PO daily 019 2018 Inactive This refill negates all other refills of this medication cetirizine 10 mg tablet RxNorm: 3434927 1 Tablet(s) PO daily 019 2018 Inactive This refill negates all other refills of this medication. Please do not auto refill Flintstones Complete (iron) 18 mg iron chewable tablet RxNorm: 1 Tablet(s) PO daily 019 2018 Inactive This refill negates all other refills of this medication buspirone 7.5 mg tablet RxNorm: 427593 1 Tablet(s) PO BID 019 2018 Inactive cetirizine 10 mg tablet RxNorm: 6528381 1 Tablet(s) PO daily 2018 Inactive Guaiasorb DM 10 mg-100 mg/5 mL oral liquid RxNorm: 700067 10 Milliliter(s) PO As needed every 4 hr 2018 Inactive Vicks Vaporub 4.7 %-1.2 %-2.6 % topical ointment RxNorm: 0067379 1 Application TOP TID 2018 Inactive levmetamfetamine 50 mg nasal inhaler RxNorm: 1 Unit(s) NASAL Q3-4H 2017 Inactive sertraline 50 mg tablet RxNorm: 397875 1 Tablet(s) PO daily 018 2018 Inactive Please note dose trazodone 50 mg tablet RxNorm: 459356 1 Tablet(s) PO QHS 018 2018 Inactive sertraline 50 mg tablet RxNorm: 656268 1 Tablet(s) PO daily 018 2017 Inactive amoxicillin 500 mg tablet RxNorm: 667759 1 Tablet(s) PO Q12H 018 2017 Inactive albuterol sulfate 2.5 mg/3 mL (0.083 %) solution for nebulization RxNorm: 710757 1 Vial INH QID 018 2018 Inactive 60/box. Please do not fill early. Please do not auto refill. Prozac 10 mg capsule RxNorm: 678500 1 Capsule(s) PO daily 018 2017 Inactive buspirone 7.5 mg tablet RxNorm: 656271 1 Tablet(s) PO BID 018 2018 Inactive gabapentin 300 mg capsule RxNorm: 567223 1 Capsule(s) PO TID as needed 018 2018 Inactive hydrochlorothiazide 12.5 mg tablet RxNorm: 085871 1 Tablet(s) PO QAM 018 2018 Inactive ranitidine 150 mg tablet RxNorm: 968066 1 Tablet(s) PO BID 018 2018 Inactive Macrobid 100 mg capsule RxNorm: 564956 1 Capsule(s) PO Q12H 018 2017 Inactive Singulair 10 mg tablet RxNorm: 736400 1 Tablet(s) PO daily 018 2018 Inactive Ventolin HFA 90 mcg/actuation aerosol inhaler RxNorm: 9836358 2 Puff(s) INH QID 018 2018 Inactive Singulair 10 mg tablet RxNorm: 248809 1 Tablet(s) PO daily 018 2017 Inactive buspirone 7.5 mg tablet RxNorm: 546895 1 Tablet(s) PO BID 018 2017 Inactive Prozac 10 mg capsule RxNorm: 927217 1 Capsule(s) PO daily 018 2017 Inactive diclofenac sodium 75 mg tablet,delayed release RxNorm: 445407 1 Tablet(s) PO BID 018 2017 Inactive lisinopril 2.5 mg tablet RxNorm: 470405 1 Tablet(s) PO daily 018 2017 Inactive Neilmed Pediatric Sinus Rinse Refill packet RxNorm: 1 Unit Dose NASAL PRN 018 2021 Inactive metoprolol succinate ER 50 mg tablet,extended release 24 hr RxNorm: 253320 1 Tablet(s) PO daily 018 2017 Inactive levothyroxine 50 mcg tablet RxNorm: 484275 1 Tablet(s) PO daily 018 2017 Inactive TRUEplus Lancets 30 gauge RxNorm: 1 Lancets Miscellaneous QAM 018 2017 Inactive 100/box Ventolin HFA 90 mcg/actuation aerosol inhaler RxNorm: 463167 2 Puff(s) INH QID 018 2017 Inactive Aleve 220 mg capsule RxNorm: 3941114 1 Capsule(s) PO BID 018 2018 Inactive ranitidine 150 mg tablet RxNorm: 589073 1 Tablet(s) PO BID 018 2017 Inactive gabapentin 300 mg capsule RxNorm: 376833 1 Capsule(s) PO TID as needed 018 2017 Inactive atorvastatin 20 mg tablet RxNorm: 247064 1 Tablet(s) PO QHS 2017 Inactive True Metrix Glucose Test Strip RxNorm: 1 Test Strips Miscellaneous QAM 018 2017 Inactive 50/container Calcium 600-D3 Plus 600 mg calcium-800 unit-50 mg tablet RxNorm: 1 Tablet(s) PO daily take an additonal tablet for itching. 018 2017 Inactive hydrochlorothiazide 12.5 mg tablet RxNorm: 184998 1 Tablet(s) PO QAM 018 2017 Inactive Flintstones Complete (iron) 18 mg iron chewable tablet RxNorm: 1 Tablet(s) PO daily 018 2017 Inactive True Metrix Glucose Meter RxNorm: miscellaneous 019 2018 Inactive sertraline 50 mg tablet RxNorm: 156834 1 Tablet(s) PO daily 020 2019 Inactive loperamide 2 mg tablet RxNorm: 397306 oral 019 2018 Inactive d-mannose oral powder RxNorm: PO 018 2021 Inactive Symbicort 160 mcg-4.5 mcg/actuation HFA aerosol inhaler RxNorm: 5443813 2 Puff(s) INH BID 019 2018 Inactive Medication Administered No Medication Administered data Procedures Procedure Codes Date Patient Health Questionnaire CPT-4: DPHQ Pain Screening CPT-4: PAS 2022 Tobacco Assessment/Screening CPT-4: TCA Hypertension CPT-4: HTN 08/17/2022 Omega Fany Assessment CPT-4: DSWA 04/02 Patient Health [...] CPT-4: VACP Fall Risk Assessment SNOMED CT: 33105837 4 CPT-4: DFRA01/13/2021emmes Fany AssessmentCPT-4: DSWA12/17/2020Urinalysis, dip stickCPT-4: 1872112Patient Health QuestionnaireCPT-4: DPHQ 08/19/2020ElectrocardiogramCPT-4: 7801640Tobacco Assessment/Screening CPT-4: TCA01/01/2020Fall Risk AssessmentSNOMED CT: 000779346 CPT-4: DFRA01/01/2020Functional AssessmentCPT-4: DFA01/01/2020Semmes Fany AssessmentCPT-4: DSWA11/28/2019Patient Health QuestionnaireCPT-4: DPHQ11/28/2019 Omega Fany AssessmentCPT-4: DSWA10/17/2019HypertensionCPT-4: HTN10/17/[address]: 683523476 CPT-4: DFRA09/19/2019Functional AssessmentCPT-4: DFA111/20/2018Urinalysis, dip stickCPT-4: 4355233Tobacco Assessment/ScreeningCPT-4: TCA05/24/2019 Patient Health QuestionnaireCPT-4: DPHQ05/24/2019AHA/REBECCA Classification AssessmentCPT-4: DAHA04/25/2019Controlled Substance ReportCPT-4: CTRSU04/25/2019 Urinalysis, dip stickCPT-4: 9506315Urinalysis, dip stickCPT-4: 91076 03/28/20198696X3R-RgiyzrxqylpkaifCKW-3: 03668VgyeswrL2Y-QeekpgmawdwxiluWZZ-6: 28919 CmbxqwgK7G-AcjzweanehjqhytCXX-5: 51210OecphkbS2X-BpeknvvzfzsdfhwCQH-7: 94179 AjjwprlJ2P-JafdsslofgxlwiaICP-9: 36453QbsiwmlD1H-LnhjbppqcopmklwEAV-3: 14105 AfiufthH3Z-SsqfvclsbfnkqpwASB-9: 59191XkvolskK0A-ErcirueibuiubmaQJA-8: 86771 CpzoivzG2X-KhpoyrjcytiuedvCMY-5: 24461JqcqgjpR5S-QtkldrhseaisoqaHOA-0: 87131 CjzndboA0M-SqtgabmgixykklzOZL-5: 51418YmfwumhZsjqfzhmuj ReferralSNOMED CT: 204716745 CPT-4: M91Hhppedl Reason For Visit No Reason For Visit data Plan of Care Planned Activity Notes Codes Status Date Referral: Pending Gynecology Referral Informatio n Referral ProcessedReferral: Pending Pulmonology Referral InformationReferralProcessed Referral: Pending Psychiatry Referral InformationReferralInitiatedReferral: Pending Respiratory Services Referral InformationReferralInitiatedReferral: Pending Ophthalmology Referral InformationReferralInitiatedReferral: [facility] WPtel: [address] [id number] [employer] placed a call out to the patient to notify her that it has been recommended that she be seenby a urologist. Patient agreed to be seen, does not have a provider of choice and no transportationissues. [employer] faxed referral and clinical notes to [facility] in [place], [place] near the patient's home. Patient to [...] seen and prefers a provider in the [place] or [place] area. [employer] placed a call out to everyone listed in the area and the only location that was able to accept the patient's insurance was [address] [address] and spoke with Maylin. Maylin asked that the patient's referral, face sheet and visit notes be faxed to . [employer] faxed over requested documents. Patient appointment confirmation letter generated and mailed to her home address. Patient to call to schedule an appointment.ProcessedReferral: [facility] WPtel: [address] [place] [address] [place], [place] [id number] USPatient notified that it has been advised that she be seen by Neurology. Patient agreed to be seen and prefers to be seen by a provider in the [place], [place] area. Patient denies any concerns with transportation, and prefers to schedule her own appointment. [employer] placed a call out to [facility] and spoke with Neeraj P: [...]
--- OUTSIDE RECORDS SUMMARY | 2024-01-03 23:27 | XMS_ITS | CCD ---
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 Curator Of Education Name Role Phone Palomo KING, Anna Primary Care Provider Unav ailable Unavailable Chronic Care Management Unavaila ble Summary Purpose DataExchange Insurance Providers Payer name Policy type / Coverage type Covered libertarian ID Effective Begin Date Effective End Date [facility] [id number] Unknown Unknown Family history Mother Diagnosis Age [...] 05/31/2018 Education level Unknown Some High School 10th05/31/20185138TztasmksnxPoslxiaGvcgrykgme09/29/2018Tobacco historySNOMED CT: 731806046Xig never smoked or chewed [id number]/31/2018Alcohol historySNOMED CT: 840859096Lbedt drinks [id number]/31/2018Has the patient ever used illegal drugs? UnknownHas never used illegal drugs05/31/2018DNR Order/ Advanced Directive UnknownFull Code05/31/2018 Allergies, Adverse Reactions, Alerts Substance Reaction Codes Entered Date Inactivated Date Status OxyContin itch, RxNorm: 766056 01/13/2021 No Inactive Da te Active *No known food allergies [id number]/06/2018No Inactive DateActiveMethylprednisolonehivesRxNorm: 6902 09/06/2018No Inactive DateActive Problems Condition Codes Effective Dates Condition St atus Hyperlipidemia, mixed ICD-10: E78.2 ICD-9: 272.203/ctiveHypertensive heart disease without heart failureICD- 10: I11.9 ICD-9: 402.9003ctiveMajor depression, recurrentICD-10: F33.9 ICD-9: 296.3009/ctiveNonintractable epileptic seizures due to external causes, without status epilepticusICD-10: G40.509 ICD-9: 345.9008/ctiveType 2 diabetes mellitus with peripheral neuropathy ICD-10: E11.42 ICD-9: 250.6002/ActiveVitamin D deficiencyICD-10: E55.9 ICD-9: 268.903/ctiveUTI (urinary tract infection)ICD-10: N39.0 ICD-9: 599.006/ctiveAdult BMI 50.0-59.9 kg/sq mICD-10: Z68.43 ICD-9: V85.4308/ActiveInsomniaICD-10: G47.00 ICD-9: 780.5204/ctiveGERD (gastroesophageal reflux disease)ICD-10: K21.9 ICD-9: 530.8112/03/2019ActiveObstructive sleep apnea (adult) (pediatric)ICD-10: G47.33 ICD-9: 327.2309/ActiveAsthmaICD-10: J45.909 ICD-9: 493.9011Active(Z00.00-V70.9) Encounter for general adult medical examination without abnormal findingsICD-10: Z00.00 ICD-9: V70.905/09/2022InactiveAbnormal electrocardiogram [ECG] [EKG]ICD-10: R94.31 ICD-9: 794.3108/InactiveAbscessICD-10: L02.91 ICD-9: 682.907/InactiveAnkle sprainICD-10: S93.409A ICD-9: 845.0010/InactiveEncounter for immunizationICD-10: Z23 ICD-9: V04.8111/InactiveEncounter for screening for tobacco useICD-10: Z01.89 ICD-9: V72.8501/18/2023InactiveFungal infection of skinICD-10: B36.9 ICD-9: 111.911/InactiveHistory of [...] examinationICD-10: Z01.810 ICD-9: V72.8106/InactiveHeadacheICD-10: R51 ICD-9: 784.001InactiveOther shelter (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ICD-10: Z79.899 ICD-9: V58.6907InactiveType 2 [...] Instructions omeprazole 40 mg capsule,delayed release RxNorm: 874086 Take 1 Capsule(s) Oral at bed time 023 2022 Inactive Easy Touch Alcohol Prep Pads RxNorm: 939031 USE EACH MORNING 023 2024 Active montelukast 10 mg tablet RxNorm: 983460 Take 1 Tablet(s) Oral every day 023 2022 Inactive gabapentin 300 mg capsule RxNorm: 708966 Take 1 Capsule(s) Oral three times a day 023 2022 Inactive metformin ER 500 mg 24 hr tablet,extended release RxNorm: 4168254 Take 1 Tablet(s) Oral every day with the evening meal 023 2022 Inactive famotidine 20 mg tablet RxNorm: 674036 Take 1 Tablet(s) Oral every morning 023 2022 Inactive levothyroxine 50 mcg tablet RxNorm: 202840 Take 1 Tablet(s) Oral every day 023 2023 Active Msg From [facility]: Approval Requested hydrochlorothiazide 25 mg tablet RxNorm: 314290 Take 1 Tablet(s) Oral every day 023 2023 Active Msg From [facility]: Approval Requested atorvastatin 20 mg tablet RxNorm: 660391 Take 1 Tablet(s) Oral every night at bedtime 023 2023 Active Macrobid 100 mg capsule RxNorm: 355956 1 Capsule(s) Oral every 12 hours with food 023 2022 Inactive omeprazole 40 mg capsule,delayed release RxNorm: 685375 Take 1 Capsule(s) Oral every night at bedtime 023 2022 Inactive trazodone 50 mg tablet RxNorm: 977770 Administer 1 Tablet(s) Oral every night at bedtime 023 No Stop Date Active cholecalciferol (vitamin D3) 50 mcg (2,000 unit) tablet RxNorm: 372526 Take 1 Tablet(s) Oral every day 023 2023 Active Ozempic 1 mg/dose (4 mg/3 mL) subcutaneous pen injector RxNorm: 8183514 USE 1 UNIT DOSE SUBCUTANEOUSLY ON TUE OF EACH WEEK 023 2022 Inactive lisinopril 2.5 mg tablet RxNorm: 309690 Take 1 Tablet(s) Oral every day 023 2022 Inactive Msg From [facility]: Dr. Zapata Requested Ozempic 1 mg/dose (4 mg/3 mL) subcutaneous pen injector RxNorm: 1024214 USE 1 UNIT DOSE SUBCUTANEOUSLY ON TUE OF EACH WEEK 023 2022 Inactive omeprazole 40 mg capsule,delayed release RxNorm: 013965 Take 1 Capsule(s) Oral every night at bedtime 023 2022 Inactive gabapentin 300 mg capsule RxNorm: 399590 Take 1 Capsule(s) Oral three times a day 023 2022 Inactive montelukast 10 mg tablet RxNorm: 208403 Take 1 Tablet(s) Oral every day 023 2022 Inactive omeprazole 20 mg capsule,delayed release RxNorm: 039521 Take 1 Capsule(s) Oral every evening 022 2022 Inactive Alcohol Prep Pads RxNorm: 487606 USE EACH MORNING 022 2021 Inactive E11.42 clotrimazole 1 % topical cream RxNorm: 458819 Apply 1 Application Topical two times a day as needed apply to affected area(s) twice daily until healed 022 2021 Inactive Victoza 2-Sebastián 0.6 mg/0.1 mL (18 mg/3 mL) subcutaneous pen injector RxNorm: 814151 Inject 0.6-1.8 Milligram(s) Subcutaneous once a week Inject 0.6mg/0.1ml week one, 1.2mg/0.2ml week two, 1.8/0.3ml weekly thereafter 022 2021 Inactive ibuprofen 800 mg tablet RxNorm: 112496 Take 1 Tablet(s) Oral Q8H as needed for pain take with food No Stop Date Active Ozempic 1 mg/dose (4 mg/3 mL) subcutaneous pen injector RxNorm: 2334913 Take 1 Unit Dose Subcutaneous QWeek Tuesday2021 Inactive lisinopril 2.5 mg tablet RxNorm: 881106 Take 1 Tablet(s) Oral every day 2021 Inactive lisinopril 2.5 mg tablet RxNorm: 086003 Take 1 Tablet(s) Oral every day 2022 Inactive hydrochlorothiazide 25 mg tablet RxNorm: 063691 Take 1 Tablet(s) Oral every day 2021 Inactive Ozempic 1 mg/dose (4 mg/3 mL) subcutaneous pen injector RxNorm: 6625833 Take 1 Unit Dose Subcutaneous QWeek 022 2021 Inactive famotidine 20 mg tablet RxNorm: 048401 Take 1 Tablet(s) Oral every morning 2021 Inactive levothyroxine 50 mcg tablet RxNorm: 411478 Take 1 Tablet(s) Oral every day 2021 Inactive atorvastatin 20 mg tablet RxNorm: 675939 Take 1 Tablet(s) Oral every night at bedtime 2021 Inactive Cleocin T 1 % lotion RxNorm: 054484 Take 2 Gram(s) Topical every day 022 2021 Inactive Cleocin T 1 % lotion RxNorm: 273454 Take 2 Gram(s) Topical every day 022 2021 Inactive Ozempic 1 mg/dose (4 mg/3 mL) subcutaneous pen injector RxNorm: 2164590 Take 1 Unit Dose Subcutaneous QWeek 022 2021 Inactive Ozempic 0.25 mg or 0.5 mg (2 mg/1.5 mL) subcutaneous pen injector RxNorm: 4119724 INJECT 0.5 MGS SUBCUTANEOUSLY EVERY WEEK 2021 Inactive omeprazole 20 mg capsule,delayed release RxNorm: 994556 Take 1 Capsule(s) Oral every evening 2021 Inactive levothyroxine 50 mcg tablet RxNorm: 475068 Take 1 Tablet(s) Oral every day 2021 Inactive atorvastatin 20 mg tablet RxNorm: 245822 Take 1 Tablet(s) Oral every night at bedtime 2021 Inactive This refill negates all other refills of this medication lisinopril 2.5 mg tablet RxNorm: 537721 Take 1 Tablet(s) Oral every day 022 2021 Inactive gabapentin 300 mg capsule RxNorm: 512545 Take 1 Capsule(s) Oral three times a day 2021 Inactive montelukast 10 mg tablet RxNorm: 930011 Take 1 Tablet(s) Oral every day 2021 Inactive Myrbetriq 50 mg tablet,extended release RxNorm: 5892651 1 Tablet(s) Oral every day No Stop Date Active cholecalciferol (vitamin D3) 50 mcg (2,000 unit) tablet RxNorm: 681775 Take 1 Tablet(s) Oral every day 2022 Inactive Ozempic 0.25 mg or 0.5 mg (2 mg/1.5 mL) subcutaneous pen injector RxNorm: 7060670 inject 0.5 milligrams subcutaneously every week 2021 Inactive Ozempic 0.25 mg or 0.5 mg (2 mg/1.5 mL) subcutaneous pen injector RxNorm: 3666739 Take 0.5 Capsule(s) Injection once a week 022 2021 Inactive omeprazole 20 mg capsule,delayed release RxNorm: 088804 Take 1 Capsule(s) Oral every evening 2020 Inactive Ozempic 0.25 mg or 0.5 mg (2 mg/1.5 mL) subcutaneous pen injector RxNorm: 1313565 Take 0.25 Milligram(s) Subcutaneous once a week 2021 Inactive Easy Touch Alcohol Prep Pads RxNorm: 459301 USE DIRECTED EACH MORNING 021 2021 Inactive Probiotic 10 billion cell capsule RxNorm: 8974197 Take 1 Capsule(s) Oral every day 2021 Inactive levothyroxine 50 mcg tablet RxNorm: 662810 Take 1 Tablet(s) Oral every day 2020 Inactive Acid Mail Hand[employer] Supervisor (famotidine) 20 mg tablet RxNorm: 804081 Take 1 Tablet(s) Oral every morning 2020 Inactive Heartburn Relief (famotidine) 10 mg tablet RxNorm: 255742 Take 1 Tablet(s) Oral QAM 2020 Inactive levothyroxine 50 mcg tablet RxNorm: 630453 Take 1 Tablet(s) Oral QD 2020 Inactive Singulair 10 mg tablet RxNorm: 297220 TAKE (1) TABLET BY MOUTH DAILY 2020 Inactive metformin 1,000 mg tablet RxNorm: 175707 1 Tablet(s) Oral two times a day 2021 Inactive lisinopril 2.5 mg tablet RxNorm: 516682 Take 1 Tablet(s) Oral every day 2020 Inactive hydrochlorothiazide 25 mg tablet RxNorm: 427383 Take 1 Tablet(s) Oral every day 021 2020 Inactive ondansetron 4 mg disintegrating tablet RxNorm: 936423 1 Tablet(s) Oral two times a day 021 2020 Inactive Sudafed 12 Hour 120 mg tablet,extended release RxNorm: 9935885 TAKE 1 TABLET BY MOUTH EVERY 12 HOURS NEEDED 2021 Inactive Heartburn Relief (famotidine) 10 mg tablet RxNorm: 778508 Take 1 Tablet(s) Oral every morning 021 2020 Inactive omeprazole 20 mg capsule,delayed release RxNorm: 467638 1 Capsule(s) Oral every evening 021 2020 Inactive sertraline 100 mg tablet RxNorm: 888890 2 Tablet(s) Oral every day 021 2020 Inactive levothyroxine 50 mcg tablet RxNorm: 605059 TAKE (1) TABLET BY MOUTH DAILY 021 2020 Inactive metformin 500 mg tablet RxNorm: 685566 1 Tablet(s) Oral two times a day take with 500mg to equal 1000mg 021 2020 Inactive gabapentin 300 mg capsule RxNorm: 038346 TAKE 1 CAPSULE BY MOUTH THREE TIMES A DAY 021 2020 Inactive lisinopril 2.5 mg tablet RxNorm: 244978 TAKE 1 TABLET BY MOUTH DAILY 021 2020 Inactive gabapentin 300 mg capsule RxNorm: 475885 TAKE 1 CAPSULE BY MOUTH THREE TIMES A DAY 021 2020 Inactive Singulair 10 mg tablet RxNorm: 662443 TAKE (1) TABLET BY MOUTH DAILY 021 2020 Inactive metformin 1,000 mg tablet RxNorm: 863139 1 Tablet(s) Oral two times a day 021 2020 Inactive atorvastatin 40 mg tablet RxNorm: 896365 1 Tablet(s) Oral every day 021 2020 Inactive omeprazole 20 mg capsule,delayed release RxNorm: 371361 1 Capsule(s) Oral every evening 021 2020 Inactive famotidine 10 mg tablet RxNorm: 067863 1 Tablet(s) Oral every morning 021 2020 Inactive Alcohol Prep Pads RxNorm: 777725 USE EACH MORNING 021 2020 Inactive omeprazole 20 mg capsule,delayed release RxNorm: 365002 1 Capsule(s) Oral two times a day 01/08/04 Inactive omeprazole 20 mg capsule,delayed release RxNorm: 840955 TAKE 1 CAPSULE BY MOUTH EVERY DAY 2021 Inactive Macrobid 100 mg capsule RxNorm: 416279 1 Capsule(s) Oral every 12 hours with food 2020 Inactive omeprazole 20 mg capsule,delayed release RxNorm: 670840 1 Capsule(s) Oral two times a day 2021 Inactive metformin 1,000 mg tablet RxNorm: 544147 1 Tablet(s) Oral two times a day 2020 Inactive start on September 11, 2020 metformin 500 mg tablet RxNorm: 801001 1 Tablet(s) Oral two times a day take with 500mg to equal 1000mg 2019 Inactive gabapentin 300 mg capsule RxNorm: 040783 TAKE 1 CAPSULE BY MOUTH THREE TIMES DAILY 2020 Inactive cetirizine 10 mg tablet RxNorm: 8370844 TAKE (1) TABLET BY MOUTH DAILY 2020 Inactive metformin 500 mg tablet RxNorm: 763632 1 Tablet(s) Oral two times a day 2019 Inactive loperamide 2 mg tablet RxNorm: 039273 1 Tablet(s) Oral as needed take one tablet after each loose stool, maximum of 8 tablets in 24 hours 2021 Inactive Sudafed 12 Hour 120 mg tablet,extended release RxNorm: 4499005 TAKE 1 TABLET BY MOUTH EVERY 12 HOURS NEEDED 2019 Inactive hydrochlorothiazide 25 mg tablet RxNorm: 364013 TAKE (1) TABLET BY MOUTH EVERY DAY 2019 Inactive omeprazole 20 mg capsule,delayed release RxNorm: 469219 TAKE 1 CAPSULE BY MOUTH EVERY DAY 2020 Inactive metformin 500 mg tablet RxNorm: 690284 1 Tablet(s) Oral every day 2019 Inactive True Metrix Glucose Test Strip RxNorm: 1 Test Strips Miscellaneous two times a day as needed No Stop Date Active metformin 500 mg tablet RxNorm: 956957 1 Tablet(s) Oral every day 2019 Inactive diclofenac sodium 75 mg tablet,delayed release RxNorm: 419177 1 Tablet(s) PO BID 2021 Inactive This refill negates all other refills of this medication Sudafed 12 Hour 120 mg tablet,extended release RxNorm: 2635513 TAKE 1 TABLET BY MOUTH EVERY 12 HOURS NEEDED 2019 Inactive True Metrix Glucose Test Strip RxNorm: 1 Test Strips Miscellaneous every morning 020 2019 Inactive 100/container True Metrix Glucose Test Strip RxNorm: 1 Test Strips Miscellaneous QAM 020 2019 Inactive 100/container loperamide 2 mg tablet RxNorm: 112949 1 Tablet(s) Oral as needed take one tablet after each loose stool, maximum of 8 tablets in 24 hours 2019 Inactive cetirizine 10 mg tablet RxNorm: 6396566 1 Tablet(s) PO daily 2019 Inactive loperamide 2 mg tablet RxNorm: 676059 1 Tablet(s) Oral as needed take one tablet after each loose stool, maximum of 8 tablets in 24 hours 020 2019 Inactive quetiapine 100 mg tablet RxNorm: 794685 1 Tablet(s) Oral every night at bedtime 2019 Inactive levothyroxine 50 mcg tablet RxNorm: 674184 1 Tablet(s) PO daily 020 2020 Inactive gabapentin 300 mg capsule RxNorm: 193567 1 Capsule(s) PO TID 2019 Inactive levothyroxine 50 mcg tablet RxNorm: 843714 1 Tablet(s) PO daily 020 2019 Inactive lisinopril 2.5 mg tablet RxNorm: 532939 1 Tablet(s) PO daily 2020 Inactive gabapentin 300 mg capsule RxNorm: 680169 1 Capsule(s) PO TID 2019 Inactive cetirizine 10 mg tablet RxNorm: 6536832 1 Tablet(s) PO daily 020 2019 Inactive Singulair 10 mg tablet RxNorm: 537264 1 Tablet(s) PO daily 2020 Inactive gentamicin 0.3 % eye drops RxNorm: 592821 1 Drop(s) ophthalmic (eye) four times a day 2019 Inactive gentamicin 0.3 % eye drops RxNorm: 512492 1 Drop(s) ophthalmic (eye) four times a day 2019 Inactive gentamicin 0.3 % eye drops RxNorm: 643626 1 Drop(s) ophthalmic (eye) four times a day 2019 Inactive hydrochlorothiazide 25 mg tablet RxNorm: 031095 1 Tablet(s) Oral every day 2019 Inactive Sudafed 12 Hour 120 mg tablet,extended release RxNorm: 8620727 TAKE (1) TABLET BY MOUTH EVERY 12 HOURS NEEDED 2019 Inactive loperamide 2 mg tablet RxNorm: 217371 1 Tablet(s) Oral as needed take one tablet after each loose stool, maximum of 8 tablets in 24 hours 2019 Inactive loperamide 2 mg tablet RxNorm: 761126 1 Tablet(s) Oral as needed take one tablet after each loose stool, maximum of 8 tablets in 24 hours 2019 Inactive atorvastatin 40 mg tablet RxNorm: 735982 1 Tablet(s) Oral every day 2020 Inactive quetiapine 100 mg tablet RxNorm: 139780 1 Tablet(s) Oral every night at bedtime 2019 Inactive sertraline 100 mg tablet RxNorm: 000296 1 Tablet(s) Oral 2019 Inactive omeprazole 20 mg capsule,delayed release RxNorm: 085116 1 Capsule(s) Oral every day 020 2019 Inactive amoxicillin 250 mg capsule RxNorm: 142023 1 Capsule(s) Oral three times a day 2019 Inactive multivitamin with iron-mineral tablet RxNorm: 1 Tablet(s) Oral every day 020 2021 Inactive cetirizine 10 mg tablet RxNorm: 7086614 1 Tablet(s) PO daily 2019 Inactive This refill negates all other refills of this medication. Please do not auto refill Singulair 10 mg tablet RxNorm: 586835 1 Tablet(s) PO daily 2019 Inactive This refill negates all other refills of this medication gabapentin 300 mg capsule RxNorm: 307817 1 Capsule(s) PO TID 2019 Inactive lisinopril 2.5 mg tablet RxNorm: 832684 1 Tablet(s) PO daily 2019 Inactive levothyroxine 50 mcg tablet RxNorm: 653158 1 Tablet(s) PO daily 2019 Inactive This refill negates all other refills of this medication hydrochlorothiazide 25 mg tablet RxNorm: 707166 1 Tablet(s) Oral every day 2019 Inactive fenugreek seed extract 500 mg capsule RxNorm: 1 Capsule(s) Oral three times a day 2021 Inactive Alcohol Prep Pads RxNorm: 554000 1 Patch TOP QAM 2020 Inactive loperamide 2 mg tablet RxNorm: 262494 1 Tablet(s) Oral as needed take one [...] 2019 Inactive hydrochlorothiazide 25 mg tablet RxNorm: 290779 1 Tablet(s) Oral every day 2019 Inactive Sudafed 12 Hour 120 mg tablet,extended release RxNorm: 4264699 1 Tablet(s) Oral every 12 hours as needed 2018 Inactive omeprazole 20 mg capsule,delayed release RxNorm: 951128 1 Capsule(s) Oral every day 019 2019 Inactive Sudafed 12 Hour 120 mg tablet,extended release RxNorm: 7784533 1 Tablet(s) Oral every 12 hours as needed 2018 Inactive pantoprazole 40 mg tablet,delayed release RxNorm: 273937 1 Tablet(s) Oral every day 019 2018 Inactive discontinue any other H2Blkr. and PPI albuterol sulfate 2.5 mg/3 mL (0.083 %) solution for nebulization RxNorm: 477424 1 Vial Inhalation every four hours as needed as needed for dyspnea 019 2019 Inactive 60/box. This refill negates all other refills of this medication. Please do not fill early. Please do not auto refill. Symbicort 160 mcg-4.5 mcg/actuation HFA aerosol inhaler RxNorm: 9398172 2 Puff(s) INH BID No Stop Date Active Alcohol Prep Pads RxNorm: 388264 1 Patch TOP QAM 019 2019 Inactive Ventolin HFA 90 mcg/actuation aerosol inhaler RxNorm: 117122 2 Puff(s) INH QID 019 2019 Inactive Please do not fill early. Please do not auto refill. This refill negates all other refills of this medication True Metrix Glucose Test Strip RxNorm: 1 Test Strips Miscellaneous QAM 019 2019 Inactive 100/container atorvastatin 40 mg tablet RxNorm: 830205 1 Tablet(s) Oral every day 019 2019 Inactive buspirone 7.5 mg tablet RxNorm: 541006 1 Tablet(s) PO BID 019 2020 Inactive This refill negates all other refills of this medication hydrochlorothiazide 12.5 mg tablet RxNorm: 029768 1 Tablet(s) PO QAM 019 2019 Inactive levmetamfetamine 50 mg nasal inhaler RxNorm: 1 Unit(s) NASAL Q3-4H Do not use more than every 3 hours or 8 times/24hours 019 2021 Inactive Please do not auto refill. This refill negates all other refills of this medication Ventolin HFA 90 mcg/actuation aerosol inhaler RxNorm: 224023 2 Puff(s) INH QID 019 2018 Inactive Please do not fill early. Please do not auto refill. This refill negates all other refills of this medication Singulair 10 mg tablet RxNorm: 136329 1 Tablet(s) PO daily 019 2019 Inactive This refill negates all other refills of this medication cetirizine 10 mg tablet RxNorm: 4569812 1 Tablet(s) PO daily 019 2019 Inactive This refill negates all other refills of this medication. Please do not auto refill levothyroxine 50 mcg tablet RxNorm: 570343 1 Tablet(s) PO daily 019 2019 Inactive This refill negates all other refills of this medication diclofenac sodium 75 mg tablet,delayed release RxNorm: 938504 1 Tablet(s) PO BID 019 2019 Inactive This refill negates all other refills of this medication ranitidine 150 mg tablet RxNorm: 745008 1 Tablet(s) PO BID 019 2018 Inactive This refill negates all other refills of this medication Calcium 600-D3 Plus (mag-zinc) 600 mg calcium-800 unit-50 mg tablet RxNorm: 1 Tablet(s) PO daily take an additonal tablet for itching. 019 2018 Inactive This refill negates all other refills of this medication albuterol sulfate 2.5 mg/3 mL (0.083 %) solution for nebulization RxNorm: 422270 1 Vial INH QID 2018 Inactive 60/box. This refill negates all other refills of this medication. Please do not fill early. Please do not auto refill. lisinopril 2.5 mg tablet RxNorm: 466577 1 Tablet(s) PO daily 019 2019 Inactive gabapentin 300 mg capsule RxNorm: 279375 1 Capsule(s) PO TID 019 2019 Inactive atorvastatin 20 mg tablet RxNorm: 572033 1 Tablet(s) PO QHS 2018 Inactive This refill negates all other refills of this medication TRUEplus Lancets 30 gauge RxNorm: 1 Lancets Miscellaneous QAM 019 2018 Inactive 100/box gabapentin 300 mg capsule RxNorm: 170115 1 Capsule(s) PO TID 019 2018 Inactive Flintstones Complete (iron) 18 mg iron chewable tablet RxNorm: 1 Tablet(s) PO daily 019 2021 Inactive This refill negates all other refills of this medication gabapentin 300 mg capsule RxNorm: 687410 1 Capsule(s) PO TID as needed 019 2018 Inactive True Metrix Glucose Test Strip RxNorm: 1 Test Strips Miscellaneous QAM 019 2018 Inactive 100/container Alcohol Prep Pads RxNorm: 982111 1 Patch TOP QAM 019 2018 Inactive TRUEplus Lancets 30 gauge RxNorm: 1 Lancets Miscellaneous QAM 019 2018 Inactive 100/box lisinopril 2.5 mg tablet RxNorm: 955532 1 Tablet(s) PO daily 019 2018 Inactive ranitidine 150 mg tablet RxNorm: 663347 1 Tablet(s) PO BID 019 2018 Inactive This refill negates all other refills of this medication albuterol sulfate 2.5 mg/3 mL (0.083 %) solution for nebulization RxNorm: 401395 1 Vial INH QID 019 2018 Inactive [...] this medication gabapentin 300 mg capsule RxNorm: 519679 1 Capsule(s) PO TID as needed 019 2018 Inactive atorvastatin 20 mg tablet RxNorm: 738788 1 Tablet(s) PO QHS 019 2018 Inactive This refill negates all other refills of this medication trazodone 50 mg tablet RxNorm: 481492 1 Tablet(s) PO QHS 019 2018 Inactive This refill negates all other refills of this medication Ventolin HFA 90 mcg/actuation aerosol inhaler RxNorm: 671580 2 Puff(s) INH QID 019 2018 Inactive Please do not fill early. Please do not auto refill. This refill negates all other refills of this medication Calcium 600-D3 Plus 600 mg calcium-800 unit-50 mg tablet RxNorm: 1 Tablet(s) PO daily take an additonal tablet for itching. 019 2018 Inactive This refill negates all other refills of this medication Singulair 10 mg tablet RxNorm: 517148 1 Tablet(s) PO daily 019 2018 Inactive This refill negates all other refills of this medication buspirone 7.5 mg tablet RxNorm: 803455 1 Tablet(s) PO BID 019 2018 Inactive This refill negates all other refills of this medication diclofenac sodium 75 mg tablet,delayed release RxNorm: 167768 1 Tablet(s) PO BID 019 2018 Inactive This refill negates all other refills of this medication hydrochlorothiazide 12.5 mg tablet RxNorm: 283163 1 Tablet(s) PO QAM 019 2018 Inactive metoprolol succinate ER 50 mg tablet,extended release 24 hr RxNorm: 474535 1 Tablet(s) PO daily 019 2018 Inactive This refill negates all other refills of this medication levothyroxine 50 mcg tablet RxNorm: 562431 1 Tablet(s) PO daily 019 2018 Inactive This refill negates all other refills of this medication cetirizine 10 mg tablet RxNorm: 8305569 1 Tablet(s) PO daily 019 2018 Inactive This refill negates all other refills of this medication. Please do not auto refill Flintstones Complete (iron) 18 mg iron chewable tablet RxNorm: 1 Tablet(s) PO daily 019 2018 Inactive This refill negates all other refills of this medication buspirone 7.5 mg tablet RxNorm: 943673 1 Tablet(s) PO BID 019 2018 Inactive cetirizine 10 mg tablet RxNorm: 4028682 1 Tablet(s) PO daily 2018 Inactive Guaiasorb DM 10 mg-100 mg/5 mL oral liquid RxNorm: 291862 10 Milliliter(s) PO As needed every 4 hr 2018 Inactive Vicks Vaporub 4.7 %-1.2 %-2.6 % topical ointment RxNorm: 4946180 1 Application TOP TID 018 2018 Inactive levmetamfetamine 50 mg nasal inhaler RxNorm: 1 Unit(s) NASAL Q3-4H 018 2017 Inactive sertraline 50 mg tablet RxNorm: 185329 1 Tablet(s) PO daily 2018 Inactive Please note dose trazodone 50 mg tablet RxNorm: 580978 1 Tablet(s) PO QHS 018 2018 Inactive sertraline 50 mg tablet RxNorm: 298945 1 Tablet(s) PO daily 018 2017 Inactive amoxicillin 500 mg tablet RxNorm: 945411 1 Tablet(s) PO Q12H 018 2017 Inactive albuterol sulfate 2.5 mg/3 mL (0.083 %) solution for nebulization RxNorm: 971099 1 Vial INH QID 018 2018 Inactive 60/box. Please do not fill early. Please do not auto refill. Prozac 10 mg capsule RxNorm: 628912 1 Capsule(s) PO daily 018 2017 Inactive buspirone 7.5 mg tablet RxNorm: 443607 1 Tablet(s) PO BID 018 2018 Inactive gabapentin 300 mg capsule RxNorm: 917240 1 Capsule(s) PO TID as needed 2018 Inactive hydrochlorothiazide 12.5 mg tablet RxNorm: 837471 1 Tablet(s) PO QAM 2018 Inactive ranitidine 150 mg tablet RxNorm: 182869 1 Tablet(s) PO BID 018 2018 Inactive Macrobid 100 mg capsule RxNorm: 867852 1 Capsule(s) PO Q12H 018 2017 Inactive Singulair 10 mg tablet RxNorm: 947186 1 Tablet(s) PO daily 018 2018 Inactive Ventolin HFA 90 mcg/actuation aerosol inhaler RxNorm: 4524843 2 Puff(s) INH QID 018 2018 Inactive Singulair 10 mg tablet RxNorm: 732998 1 Tablet(s) PO daily 018 2017 Inactive buspirone 7.5 mg tablet RxNorm: 919364 1 Tablet(s) PO BID 018 2017 Inactive Prozac 10 mg capsule RxNorm: 576983 1 Capsule(s) PO daily 018 2017 Inactive diclofenac sodium 75 mg tablet,delayed release RxNorm: 218279 1 Tablet(s) PO BID 018 2017 Inactive lisinopril 2.5 mg tablet RxNorm: 892599 1 Tablet(s) PO daily 018 2017 Inactive Neilmed Pediatric Sinus Rinse Refill packet RxNorm: 1 Unit Dose NASAL PRN 018 2021 Inactive metoprolol succinate ER 50 mg tablet,extended release 24 hr RxNorm: 130064 1 Tablet(s) PO daily 018 2017 Inactive levothyroxine 50 mcg tablet RxNorm: 351144 1 Tablet(s) PO daily 018 2017 Inactive TRUEplus Lancets 30 gauge RxNorm: 1 Lancets Miscellaneous QAM 018 2017 Inactive 100/box Ventolin HFA 90 mcg/actuation aerosol inhaler RxNorm: 797759 2 Puff(s) INH QID 018 2017 Inactive Aleve 220 mg capsule RxNorm: 9210090 1 Capsule(s) PO BID 018 2018 Inactive ranitidine 150 mg tablet RxNorm: 682886 1 Tablet(s) PO BID 018 2017 Inactive gabapentin 300 mg capsule RxNorm: 283356 1 Capsule(s) PO TID as needed 018 2017 Inactive atorvastatin 20 mg tablet RxNorm: 160689 1 Tablet(s) PO QHS 018 2017 Inactive True Metrix Glucose Test Strip RxNorm: 1 Test Strips Miscellaneous QAM 018 2017 Inactive 50/container Calcium 600-D3 Plus 600 mg calcium-800 unit-50 mg tablet RxNorm: 1 Tablet(s) PO daily take an additonal tablet for itching. 018 2017 Inactive hydrochlorothiazide 12.5 mg tablet RxNorm: 605913 1 Tablet(s) PO QAM 018 2017 Inactive Flintstones Complete (iron) 18 mg iron chewable tablet RxNorm: 1 Tablet(s) PO daily 018 2017 Inactive True Metrix Glucose Meter RxNorm: miscellaneous 019 2018 Inactive sertraline 50 mg tablet RxNorm: 074982 1 Tablet(s) PO daily 020 2019 Inactive loperamide 2 mg tablet RxNorm: 727148 oral 019 2018 Inactive d-mannose oral powder RxNorm: PO 018 2021 Inactive Symbicort 160 mcg-4.5 mcg/actuation HFA aerosol inhaler RxNorm: 2453284 2 Puff(s) INH BID 2018 Inactive Medication Administered No Medication Administered data Procedures Procedure Codes Date Urinalysis, dip stick CPT-4: 29133 05/04/2023 [place] Assessment CPT-4: DSWA 01/02 Fall Risk Assessment CPT-4: DFRA 01/27/2023 Hypertension CPT-4: HTN 01/27/2023 Patient Health Questionnaire CPT-4: DPHQ Pain Screening CPT-4: PAS 2022 Tobacco Assessment/Screening CPT-4: TCA Hypertension CPT-4: HTN 08/17/2022 [place] Assessment CPT-4: DSWA 04/02 Patient Health [...] [facility]79[facility] 4 CPT-4: DFRA01/13/2021em[place] Fany AssessmentCPT-4: DSWA12/17/2020Urinalysis, dip stickCPT-4: 874482409/24/2020Patient Health QuestionnaireCPT-4: DPHQ 08/19/2020ElectrocardiogramCPT-4: 2435481Tobacco Assessment/Screening CPT-4: TCA01/01/2020Fall Risk AssessmentSNOMED CT: 749360060 CPT-4: DFRA01/01/2020Functional AssessmentCPT-4: DFA01/01/2020[place] Fany AssessmentCPT-4: DSWA11/28/2019Patient Health QuestionnaireCPT-4: DPHQ11/28/2019 [place] AssessmentCPT-4: DSWA10/17/2019HypertensionCPT-4: HTN10/17/[address]: 83[address]2677 CPT-4: DFRA09/19/2019Functional AssessmentCPT-4: DFA111/20/2018Urinalysis, dip stickCPT-4: 661857506/21/2019Tobacco Assessment/ScreeningCPT-4: TCA05/24/2019 Patient Health QuestionnaireCPT-4: DPHQ05/24/2019AHA/REBECCA Classification AssessmentCPT-4: DAHA04/25/2019Controlled Substance ReportCPT-4: CTRSU04/25/2019 Urinalysis, dip stickCPT-4: 3215849Urinalysis, dip stickCPT-4: 58498 03/28/20198000V3K-CmmdpjfebjhlaeeBJK-3: 74446JnivhxiY4Y-ViftvspxpelggvoOCG-3: 31779 FywcfsvG0A-ZsajopkpmwopddcCBE-1: 08483ZlnqiwcE8I-NsjpbrxtlhqqhksTRU-2: 76111 RozyistG4F-XrckzyaymwlljefMDQ-1: 52414WfxwuhpJ5G-WiyluzusgfwkqmzNPN-1: 75073 RvgcqbjH5E-GyqhwimepglwqotWYS-4: 77645PjireppS7Y-PldssunflyalfldZBZ-6: 64750 GqpjwebF4D-AxxrrowumzcpcdlONE-8: 07500TjmoiurX9O-HxurputhwfecotbOKO-6: 64010 EpuvollS2U-UfhizhvqpsumcvrDGL-9: 62559UminsjiJ4P-FhzdruhbjetwekfAVZ-9: [address]: 517333612 CPT-4: S69Voqywbn Reason For Visit No Reason For Visit data Plan of Care Planned Activity Notes Codes Status Date Referral: Pending Gynecology Referral Informatio n Referral ProcessedReferral: Pending Pulmonology Referral InformationReferralProcessed Referral: Pending Psychiatry Referral InformationReferralInitiatedReferral: Pending Respiratory Services Referral InformationReferralInitiatedReferral: Pending Ophthalmology Referral InformationReferralInitiatedReferral: [facility] WPtel: [address] [place] [address] USWriter placed a call out to the patient to notify her that it has been recommended that she be seenby a urologist. Patient agreed to be seen, does not have a provider of choice and no transportationissues. [employer]oter faxed referral and clinical notes to [facility] in [place], [place] near the patient's [...] and prefers a provider in the [place] or [facility]. [employer] placed a call out to everyone listed in the area and the only location that was able to accept the patient's insurance was [place] [id number] and spoke with Maylin. Maylin asked that the patient's referral, face sheet and visit notes be faxed to . [employer] faxed over requested documents. Patient appointment confirmation letter generated and mailed to her home address. Patient to call to schedule an appointment.ProcessedReferral: [facility] WPtel: [address] [place] [address] [address] [id number] USPatient notified that it has been advised that she be seen by Neurology. Patient agreed to be seen and prefers to be seen by a provider in the [place], [place] area. Patient denies any concerns with transportation, and prefers to schedule her own appointment. [employer] placed a call out to [facility] and spoke with Neeraj P: who confirmed that their office is able to acceptnew patients and the patient's insurance. After confirming the providers fax number, program writer faxed over the patient's referral, and [...]
--- OUTSIDE RECORDS SUMMARY | 2024-01-03 23:27 | XMS_ITS | CCD ---
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 Respiratory Manager Name Role Phone Palomo KING, Anna Primary Care Provider Unav ailable Unavailable Chronic Care Management Unavaila ble Summary Purpose DataExchange Insurance Providers Payer name Policy type / Coverage type Covered alliance party ID Effective Begin Date Effective End Date [facility] [id number] Unknown Unknown Family history Mother Diagnosis Age [...] 05/31/2018 Education level Unknown Some High School 10th05/31/20187785YrwmuulmvxKjcrknfIinjoqcjlr72/29/2018Tobacco historySNOMED CT: [id number] never smoked or chewed inwzhvj8705/31/2018Alcohol historySNOMED CT: 868311786Mexxp drinks dzfdsba5005/31/2018Has the patient ever used illegal drugs? UnknownHas never used illegal drugs05/31/2018DNR Order/ Advanced Directive UnknownFull Code05/31/2018 Allergies, Adverse Reactions, Alerts Substance Reaction Codes Entered Date Inactivated Date Status OxyContin itch, RxNorm: 032877 01/13/2021 No Inactive Da te Active *No known food allergies Vsmeslq8709/06/2018No Inactive DateActiveMethylprednisolonehivesRxNorm: 6902 09/06/2018No Inactive DateActive Problems [...] examinationICD-10: Z01.810 ICD-9: V72.8106/InactiveHeadacheICD-10: R51 ICD-9: 784.001InactiveOther [facility]itentiary (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ICD-10: Z79.899 ICD-9: V58.6907InactiveType 2 [...] Instructions Easy Touch Alcohol Prep Pads RxNorm: 086723 USE EACH MORNING 023 2024 Active montelukast 10 mg tablet RxNorm: 521756 Take 1 Tablet(s) Oral every day 023 2022 Inactive gabapentin 300 mg capsule RxNorm: 874055 Take 1 Capsule(s) Oral three times a day 023 2022 Inactive metformin ER 500 mg 24 hr tablet,extended release RxNorm: 4752119 Take 1 Tablet(s) Oral every day with the evening meal 023 2022 Inactive famotidine 20 mg tablet RxNorm: 718479 Take 1 Tablet(s) Oral every morning 023 2022 Inactive levothyroxine 50 mcg tablet RxNorm: 482149 Take 1 Tablet(s) Oral every day 023 2023 Active Msg From [facility]: Approval Requested hydrochlorothiazide 25 mg tablet RxNorm: 551072 Take 1 Tablet(s) Oral every day 023 2023 Active Msg From [facility]: Approval Requested atorvastatin 20 mg tablet RxNorm: 116947 Take 1 Tablet(s) Oral every night at bedtime 023 2023 Active Macrobid 100 mg capsule RxNorm: 957601 1 Capsule(s) Oral every 12 hours with food 023 2022 Inactive omeprazole 40 mg capsule,delayed release RxNorm: 675356 Take 1 Capsule(s) Oral every night at bedtime 023 2022 Inactive trazodone 50 mg tablet RxNorm: 010918 Administer 1 Tablet(s) Oral every night at bedtime 023 No Stop Date Active cholecalciferol (vitamin D3) 50 mcg (2,000 unit) tablet RxNorm: 775734 Take 1 Tablet(s) Oral every day 023 2023 Active Ozempic 1 mg/dose (4 mg/3 mL) subcutaneous pen injector RxNorm: 6918371 USE 1 UNIT DOSE SUBCUTANEOUSLY ON TUE OF EACH WEEK 023 2022 Inactive lisinopril 2.5 mg tablet RxNorm: 539754 Take 1 Tablet(s) Oral every day 023 2022 Inactive Msg From [facility]: Dr. Zapata Requested Ozempic 1 mg/dose (4 mg/3 mL) subcutaneous pen injector RxNorm: 3693581 USE 1 UNIT DOSE SUBCUTANEOUSLY ON TUE OF EACH WEEK 023 2022 Inactive omeprazole 40 mg capsule,delayed release RxNorm: 771472 Take 1 Capsule(s) Oral every night at bedtime 023 2022 Inactive gabapentin 300 mg capsule RxNorm: 341281 Take 1 Capsule(s) Oral three times a day 023 2022 Inactive montelukast 10 mg tablet RxNorm: 238882 Take 1 Tablet(s) Oral every day 023 2022 Inactive omeprazole 20 mg capsule,delayed release RxNorm: 464393 Take 1 Capsule(s) Oral every evening 022 2022 Inactive Alcohol Prep Pads RxNorm: 845241 USE EACH MORNING 022 2021 Inactive E11.42 clotrimazole 1 % topical cream RxNorm: 372870 Apply 1 Application Topical two times a day as needed apply to affected area(s) twice daily until healed 2021 Inactive Victoza 2-Sebastián 0.6 mg/0.1 mL (18 mg/3 mL) subcutaneous pen injector RxNorm: 842460 Inject 0.6-1.8 Milligram(s) Subcutaneous once a week Inject 0.6mg/0.1ml week one, 1.2mg/0.2ml week two, 1.8/0.3ml weekly thereafter 022 2021 Inactive ibuprofen 800 mg tablet RxNorm: 550869 Take 1 Tablet(s) Oral Q8H as needed for pain take with food 10/29/2 022 No Stop Date Active Ozempic 1 mg/dose (4 mg/3 mL) subcutaneous pen injector RxNorm: 8597699 Take 1 Unit Dose Subcutaneous QWeek Tuesday 022 2021 Inactive lisinopril 2.5 mg tablet RxNorm: 475757 Take 1 Tablet(s) Oral every day 022 2021 Inactive lisinopril 2.5 mg tablet RxNorm: 919537 Take 1 Tablet(s) Oral every day 022 2022 Inactive hydrochlorothiazide 25 mg tablet RxNorm: 380803 Take 1 Tablet(s) Oral every day 022 2021 Inactive Ozempic 1 mg/dose (4 mg/3 mL) subcutaneous pen injector RxNorm: 4665060 Take 1 Unit Dose Subcutaneous QWeek 2021 Inactive famotidine 20 mg tablet RxNorm: 582640 Take 1 Tablet(s) Oral every morning 2021 Inactive levothyroxine 50 mcg tablet RxNorm: 628995 Take 1 Tablet(s) Oral every day 2021 Inactive atorvastatin 20 mg tablet RxNorm: 031564 Take 1 Tablet(s) Oral every night at bedtime 2021 Inactive Cleocin T 1 % lotion RxNorm: 690766 Take 2 Gram(s) Topical every day 022 2021 Inactive Cleocin T 1 % lotion RxNorm: 269971 Take 2 Gram(s) Topical every day 022 2021 Inactive Ozempic 1 mg/dose (4 mg/3 mL) subcutaneous pen injector RxNorm: 1986555 Take 1 Unit Dose Subcutaneous QWeek 022 2021 Inactive Ozempic 0.25 mg or 0.5 mg (2 mg/1.5 mL) subcutaneous pen injector RxNorm: 2380798 INJECT 0.5 MGS SUBCUTANEOUSLY EVERY WEEK 022 2021 Inactive omeprazole 20 mg capsule,delayed release RxNorm: 695654 Take 1 Capsule(s) Oral every evening 022 2021 Inactive levothyroxine 50 mcg tablet RxNorm: 874090 Take 1 Tablet(s) Oral every day 022 2021 Inactive atorvastatin 20 mg tablet RxNorm: 716322 Take 1 Tablet(s) Oral every night at bedtime 2021 Inactive This refill negates all other refills of this medication lisinopril 2.5 mg tablet RxNorm: 900732 Take 1 Tablet(s) Oral every day 022 2021 Inactive gabapentin 300 mg capsule RxNorm: 328181 Take 1 Capsule(s) Oral three times a day 022 2021 Inactive montelukast 10 mg tablet RxNorm: 216235 Take 1 Tablet(s) Oral every day 2021 Inactive Myrbetriq 50 mg tablet,extended release RxNorm: 4059290 1 Tablet(s) Oral every day No Stop Date Active cholecalciferol (vitamin D3) 50 mcg (2,000 unit) tablet RxNorm: 067458 Take 1 Tablet(s) Oral every day 022 2022 Inactive Ozempic 0.25 mg or 0.5 mg (2 mg/1.5 mL) subcutaneous pen injector RxNorm: 0548916 inject 0.5 milligrams subcutaneously every week 2021 Inactive Ozempic 0.25 mg or 0.5 mg (2 mg/1.5 mL) subcutaneous pen injector RxNorm: 3311168 Take 0.5 Capsule(s) Injection once a week 022 2021 Inactive omeprazole 20 mg capsule,delayed release RxNorm: 550959 Take 1 Capsule(s) Oral every evening 2020 Inactive Ozempic 0.25 mg or 0.5 mg (2 mg/1.5 mL) subcutaneous pen injector RxNorm: 9306112 Take 0.25 Milligram(s) Subcutaneous once a week 2021 Inactive Easy Touch Alcohol Prep Pads RxNorm: 416557 USE DIRECTED EACH MORNING 2021 Inactive Probiotic 10 billion cell capsule RxNorm: 0848789 Take 1 Capsule(s) Oral every day 2021 Inactive levothyroxine 50 mcg tablet RxNorm: 915230 Take 1 Tablet(s) Oral every day 2020 Inactive Acid [employer] Officer (famotidine) 20 mg tablet RxNorm: 433441 Take 1 Tablet(s) Oral every morning 2020 Inactive Heartburn Relief (famotidine) 10 mg tablet RxNorm: 470805 Take 1 Tablet(s) Oral QAM 2020 Inactive levothyroxine 50 mcg tablet RxNorm: 218919 Take 1 Tablet(s) Oral QD 2020 Inactive Singulair 10 mg tablet RxNorm: 666021 TAKE (1) TABLET BY MOUTH DAILY 2020 Inactive metformin 1,000 mg tablet RxNorm: 746131 1 Tablet(s) Oral two times a day 2021 Inactive lisinopril 2.5 mg tablet RxNorm: 183558 Take 1 Tablet(s) Oral every day 021 2020 Inactive hydrochlorothiazide 25 mg tablet RxNorm: 764015 Take 1 Tablet(s) Oral every day 021 2020 Inactive ondansetron 4 mg disintegrating tablet RxNorm: 995574 1 Tablet(s) Oral two times a day 021 2020 Inactive Sudafed 12 Hour 120 mg tablet,extended release RxNorm: 7270416 TAKE 1 TABLET BY MOUTH EVERY 12 HOURS NEEDED 2021 Inactive Heartburn Relief (famotidine) 10 mg tablet RxNorm: 947829 Take 1 Tablet(s) Oral every morning 021 2020 Inactive omeprazole 20 mg capsule,delayed release RxNorm: 406830 1 Capsule(s) Oral every evening 021 2020 Inactive sertraline 100 mg tablet RxNorm: 716970 2 Tablet(s) Oral every day 021 2020 Inactive levothyroxine 50 mcg tablet RxNorm: 502192 TAKE (1) TABLET BY MOUTH DAILY 021 2020 Inactive metformin 500 mg tablet RxNorm: 846815 1 Tablet(s) Oral two times a day take with 500mg to equal 1000mg 021 2020 Inactive gabapentin 300 mg capsule RxNorm: 327278 TAKE 1 CAPSULE BY MOUTH THREE TIMES A DAY 021 2020 Inactive lisinopril 2.5 mg tablet RxNorm: 878472 TAKE 1 TABLET BY MOUTH DAILY 021 2020 Inactive gabapentin 300 mg capsule RxNorm: 786778 TAKE 1 CAPSULE BY MOUTH THREE TIMES A DAY 021 2020 Inactive Singulair 10 mg tablet RxNorm: 780398 TAKE (1) TABLET BY MOUTH DAILY 021 2020 Inactive metformin 1,000 mg tablet RxNorm: 847599 1 Tablet(s) Oral two times a day 021 2020 Inactive atorvastatin 40 mg tablet RxNorm: 737599 1 Tablet(s) Oral every day 021 2020 Inactive omeprazole 20 mg capsule,delayed release RxNorm: 197314 1 Capsule(s) Oral every evening 021 2020 Inactive famotidine 10 mg tablet RxNorm: 814490 1 Tablet(s) Oral every morning 021 2020 Inactive Alcohol Prep Pads RxNorm: 577465 USE EACH MORNING 021 2020 Inactive omeprazole 20 mg capsule,delayed release RxNorm: 036484 1 Capsule(s) Oral two times a day 021 2021 Inactive omeprazole 20 mg capsule,delayed release RxNorm: 748303 TAKE 1 CAPSULE BY MOUTH EVERY DAY 2021 Inactive Macrobid 100 mg capsule RxNorm: 967345 1 Capsule(s) Oral every 12 hours with food 2020 Inactive omeprazole 20 mg capsule,delayed release RxNorm: 733163 1 Capsule(s) Oral two times a day 2021 Inactive metformin 1,000 mg tablet RxNorm: 603477 1 Tablet(s) Oral two times a day 2020 Inactive start on September 11, 2020 metformin 500 mg tablet RxNorm: 886080 1 Tablet(s) Oral two times a day take with 500mg to equal 1000mg 2019 Inactive gabapentin 300 mg capsule RxNorm: 102589 TAKE 1 CAPSULE BY MOUTH THREE TIMES DAILY 2020 Inactive cetirizine 10 mg tablet RxNorm: 3590336 TAKE (1) TABLET BY MOUTH DAILY 2020 Inactive metformin 500 mg tablet RxNorm: 092443 1 Tablet(s) Oral two times a day 2019 Inactive loperamide 2 mg tablet RxNorm: 885533 1 Tablet(s) Oral as needed take one tablet after each loose stool, maximum of 8 tablets in 24 hours 2021 Inactive Sudafed 12 Hour 120 mg tablet,extended release RxNorm: 2031993 TAKE 1 TABLET BY MOUTH EVERY 12 HOURS NEEDED 2019 Inactive hydrochlorothiazide 25 mg tablet RxNorm: 170412 TAKE (1) TABLET BY MOUTH EVERY DAY 2019 Inactive omeprazole 20 mg capsule,delayed release RxNorm: 658329 TAKE 1 CAPSULE BY MOUTH EVERY DAY 2020 Inactive metformin 500 mg tablet RxNorm: 633090 1 Tablet(s) Oral every day 2019 Inactive True Metrix Glucose Test Strip RxNorm: 1 Test Strips Miscellaneous two times a day as needed No Stop Date Active metformin 500 mg tablet RxNorm: 358999 1 Tablet(s) Oral every day 020 2019 Inactive diclofenac sodium 75 mg tablet,delayed release RxNorm: 090575 1 Tablet(s) PO BID 020 2021 Inactive This refill negates all other refills of this medication Sudafed 12 Hour 120 mg tablet,extended release RxNorm: 3988788 TAKE 1 TABLET BY MOUTH EVERY 12 HOURS NEEDED 020 2019 Inactive True Metrix Glucose Test Strip RxNorm: 1 Test Strips Miscellaneous every morning 020 2019 Inactive 100/container True Metrix Glucose Test Strip RxNorm: 1 Test Strips Miscellaneous QAM 020 2019 Inactive 100/container loperamide 2 mg tablet RxNorm: 825477 1 Tablet(s) Oral as needed take one tablet after each loose stool, maximum of 8 tablets in 24 hours 020 2019 Inactive cetirizine 10 mg tablet RxNorm: 6505827 1 Tablet(s) PO daily 020 2019 Inactive loperamide 2 mg tablet RxNorm: 453623 1 Tablet(s) Oral as needed take one tablet after each loose stool, maximum of 8 tablets in 24 hours 2019 Inactive quetiapine 100 mg tablet RxNorm: 104247 1 Tablet(s) Oral every night at bedtime 2019 Inactive levothyroxine 50 mcg tablet RxNorm: 944846 1 Tablet(s) PO daily 020 2020 Inactive gabapentin 300 mg capsule RxNorm: 037842 1 Capsule(s) PO TID 020 2019 Inactive levothyroxine 50 mcg tablet RxNorm: 463362 1 Tablet(s) PO daily 2019 Inactive lisinopril 2.5 mg tablet RxNorm: 454687 1 Tablet(s) PO daily 020 2020 Inactive gabapentin 300 mg capsule RxNorm: 904061 1 Capsule(s) PO TID 020 2019 Inactive cetirizine 10 mg tablet RxNorm: 1046839 1 Tablet(s) PO daily 2019 Inactive Singulair 10 mg tablet RxNorm: 433736 1 Tablet(s) PO daily 2020 Inactive gentamicin 0.3 % eye drops RxNorm: 719356 1 Drop(s) ophthalmic (eye) four times a day 2019 Inactive gentamicin 0.3 % eye drops RxNorm: 033685 1 Drop(s) ophthalmic (eye) four times a day 2019 Inactive gentamicin 0.3 % eye drops RxNorm: 702186 1 Drop(s) ophthalmic (eye) four times a day 2019 Inactive hydrochlorothiazide 25 mg tablet RxNorm: 907679 1 Tablet(s) Oral every day 2019 Inactive Sudafed 12 Hour 120 mg tablet,extended release RxNorm: 6542878 TAKE (1) TABLET BY MOUTH EVERY 12 HOURS NEEDED 2019 Inactive loperamide 2 mg tablet RxNorm: 594067 1 Tablet(s) Oral as needed take one tablet after each loose stool, maximum of 8 tablets in 24 hours 2019 Inactive loperamide 2 mg tablet RxNorm: 775534 1 Tablet(s) Oral as needed take one tablet after each loose stool, maximum of 8 tablets in 24 hours 2019 Inactive atorvastatin 40 mg tablet RxNorm: 465505 1 Tablet(s) Oral every day 2020 Inactive quetiapine 100 mg tablet RxNorm: 557896 1 Tablet(s) Oral every night at bedtime 2019 Inactive sertraline 100 mg tablet RxNorm: 234988 1 Tablet(s) Oral 2019 Inactive omeprazole 20 mg capsule,delayed release RxNorm: 396253 1 Capsule(s) Oral every day 020 2019 Inactive amoxicillin 250 mg capsule RxNorm: 538610 1 Capsule(s) Oral three times a day 020 2019 Inactive multivitamin with iron-mineral tablet RxNorm: 1 Tablet(s) Oral every day 020 2021 Inactive cetirizine 10 mg tablet RxNorm: 7735912 1 Tablet(s) PO daily 2019 Inactive This refill negates all other refills of this medication. Please do not auto refill Singulair 10 mg tablet RxNorm: 108027 1 Tablet(s) PO daily 2019 Inactive This refill negates all other refills of this medication gabapentin 300 mg capsule RxNorm: 510592 1 Capsule(s) PO TID 2019 Inactive lisinopril 2.5 mg tablet RxNorm: 786511 1 Tablet(s) PO daily 2019 Inactive levothyroxine 50 mcg tablet RxNorm: 314843 1 Tablet(s) PO daily 2019 Inactive This refill negates all other refills of this medication hydrochlorothiazide 25 mg tablet RxNorm: 353870 1 Tablet(s) Oral every day 2019 Inactive fenugreek seed extract 500 mg capsule RxNorm: 1 Capsule(s) Oral three times a day 020 2021 Inactive Alcohol Prep Pads RxNorm: 448227 1 Patch TOP QAM 020 2020 Inactive loperamide 2 mg tablet RxNorm: 778473 1 Tablet(s) Oral as needed take one [...] 2019 Inactive hydrochlorothiazide 25 mg tablet RxNorm: 217122 1 Tablet(s) Oral every day 019 2019 Inactive Sudafed 12 Hour 120 mg tablet,extended release RxNorm: 4402221 1 Tablet(s) Oral every 12 hours as needed 2018 Inactive omeprazole 20 mg capsule,delayed release RxNorm: 946026 1 Capsule(s) Oral every day 019 2019 Inactive Sudafed 12 Hour 120 mg tablet,extended release RxNorm: 0776025 1 Tablet(s) Oral every 12 hours as needed 019 2018 Inactive pantoprazole 40 mg tablet,delayed release RxNorm: 981517 1 Tablet(s) Oral every day 2018 Inactive discontinue any other H2Blkr. and PPI albuterol sulfate 2.5 mg/3 mL (0.083 %) solution for nebulization RxNorm: 144833 1 Vial Inhalation every four hours as needed as needed for dyspnea 2019 Inactive 60/box. This refill negates all other refills of this medication. Please do not fill early. Please do not auto refill. Symbicort 160 mcg-4.5 mcg/actuation HFA aerosol inhaler RxNorm: 2382299 2 Puff(s) INH BID No Stop Date Active Alcohol Prep Pads RxNorm: 985429 1 Patch TOP QAM 019 2019 Inactive Ventolin HFA 90 mcg/actuation aerosol inhaler RxNorm: 644569 2 Puff(s) INH QID 019 2019 Inactive Please do not fill early. Please do not auto refill. This refill negates all other refills of this medication True Metrix Glucose Test Strip RxNorm: 1 Test Strips Miscellaneous QAM 019 2019 Inactive 100/container atorvastatin 40 mg tablet RxNorm: 283375 1 Tablet(s) Oral every day 019 2019 Inactive buspirone 7.5 mg tablet RxNorm: 584399 1 Tablet(s) PO BID 019 2020 Inactive This refill negates all other refills of this medication hydrochlorothiazide 12.5 mg tablet RxNorm: 714019 1 Tablet(s) PO QAM 019 2019 Inactive levmetamfetamine 50 mg nasal inhaler RxNorm: 1 Unit(s) NASAL Q3-4H Do not use more than every 3 hours or 8 times/24hours 019 2021 Inactive Please do not auto refill. This refill negates all other refills of this medication Ventolin HFA 90 mcg/actuation aerosol inhaler RxNorm: 523592 2 Puff(s) INH QID 2018 Inactive Please do not fill early. Please do not auto refill. This refill negates all other refills of this medication Singulair 10 mg tablet RxNorm: 795640 1 Tablet(s) PO daily 019 2019 Inactive This refill negates all other refills of this medication cetirizine 10 mg tablet RxNorm: 8343247 1 Tablet(s) PO daily 019 2019 Inactive This refill negates all other refills of this medication. Please do not auto refill levothyroxine 50 mcg tablet RxNorm: 122677 1 Tablet(s) PO daily 019 2019 Inactive This refill negates all other refills of this medication diclofenac sodium 75 mg tablet,delayed release RxNorm: 831089 1 Tablet(s) PO BID 019 2019 Inactive This refill negates all other refills of this medication ranitidine 150 mg tablet RxNorm: 281385 1 Tablet(s) PO BID 019 2018 Inactive This refill negates all other refills of this medication Calcium 600-D3 Plus (mag-zinc) 600 mg calcium-800 unit-50 mg tablet RxNorm: 1 Tablet(s) PO daily take an additonal tablet for itching. 2018 Inactive This refill negates all other refills of this medication albuterol sulfate 2.5 mg/3 mL (0.083 %) solution for nebulization RxNorm: 469478 1 Vial INH QID 019 2018 Inactive 60/box. This refill negates all other refills of this medication. Please do not fill early. Please do not auto refill. lisinopril 2.5 mg tablet RxNorm: 075066 1 Tablet(s) PO daily 019 2019 Inactive gabapentin 300 mg capsule RxNorm: 125873 1 Capsule(s) PO TID 019 2019 Inactive atorvastatin 20 mg tablet RxNorm: 879244 1 Tablet(s) PO QHS 2018 Inactive This refill negates all other refills of this medication TRUEplus Lancets 30 gauge RxNorm: 1 Lancets Miscellaneous QAM 2018 Inactive 100/box gabapentin 300 mg capsule RxNorm: 706559 1 Capsule(s) PO TID 019 2018 Inactive Flintstones Complete (iron) 18 mg iron chewable tablet RxNorm: 1 Tablet(s) PO daily 019 2021 Inactive This refill negates all other refills of this medication gabapentin 300 mg capsule RxNorm: 418892 1 Capsule(s) PO TID as needed 2018 Inactive True Metrix Glucose Test Strip RxNorm: 1 Test Strips Miscellaneous QAM 019 2018 Inactive 100/container Alcohol Prep Pads RxNorm: 553293 1 Patch TOP QAM 2018 Inactive TRUEplus Lancets 30 gauge RxNorm: 1 Lancets Miscellaneous QAM 019 2018 Inactive 100/box lisinopril 2.5 mg tablet RxNorm: 149829 1 Tablet(s) PO daily 019 2018 Inactive ranitidine 150 mg tablet RxNorm: 618019 1 Tablet(s) PO BID 019 2018 Inactive This refill negates all other refills of this medication albuterol sulfate 2.5 mg/3 mL (0.083 %) solution for nebulization RxNorm: 634210 1 Vial INH QID 019 2018 Inactive [...] this medication gabapentin 300 mg capsule RxNorm: 233037 1 Capsule(s) PO TID as needed 019 2018 Inactive atorvastatin 20 mg tablet RxNorm: 068212 1 Tablet(s) PO QHS 019 2018 Inactive This refill negates all other refills of this medication trazodone 50 mg tablet RxNorm: 307601 1 Tablet(s) PO QHS 019 2018 Inactive This refill negates all other refills of this medication Ventolin HFA 90 mcg/actuation aerosol inhaler RxNorm: 387862 2 Puff(s) INH QID 019 2018 Inactive Please do not fill early. Please do not auto refill. This refill negates all other refills of this medication Calcium 600-D3 Plus 600 mg calcium-800 unit-50 mg tablet RxNorm: 1 Tablet(s) PO daily take an additonal tablet for itching. 019 2018 Inactive This refill negates all other refills of this medication Singulair 10 mg tablet RxNorm: 868753 1 Tablet(s) PO daily 019 2018 Inactive This refill negates all other refills of this medication buspirone 7.5 mg tablet RxNorm: 117504 1 Tablet(s) PO BID 019 2018 Inactive This refill negates all other refills of this medication diclofenac sodium 75 mg tablet,delayed release RxNorm: 952050 1 Tablet(s) PO BID 019 2018 Inactive This refill negates all other refills of this medication hydrochlorothiazide 12.5 mg tablet RxNorm: 991707 1 Tablet(s) PO QAM 019 2018 Inactive metoprolol succinate ER 50 mg tablet,extended release 24 hr RxNorm: 609207 1 Tablet(s) PO daily 019 2018 Inactive This refill negates all other refills of this medication levothyroxine 50 mcg tablet RxNorm: 544524 1 Tablet(s) PO daily 019 2018 Inactive This refill negates all other refills of this medication cetirizine 10 mg tablet RxNorm: 4992819 1 Tablet(s) PO daily 019 2018 Inactive This refill negates all other refills of this medication. Please do not auto refill Flintstones Complete (iron) 18 mg iron chewable tablet RxNorm: 1 Tablet(s) PO daily 019 2018 Inactive This refill negates all other refills of this medication buspirone 7.5 mg tablet RxNorm: 863523 1 Tablet(s) PO BID 019 2018 Inactive cetirizine 10 mg tablet RxNorm: 4311931 1 Tablet(s) PO daily 2018 Inactive Guaiasorb DM 10 mg-100 mg/5 mL oral liquid RxNorm: 023707 10 Milliliter(s) PO As needed every 4 hr 2018 Inactive Vicks Vaporub 4.7 %-1.2 %-2.6 % topical ointment RxNorm: 1009548 1 Application TOP TID 2018 Inactive levmetamfetamine 50 mg nasal inhaler RxNorm: 1 Unit(s) NASAL Q3-4H 2017 Inactive sertraline 50 mg tablet RxNorm: 115733 1 Tablet(s) PO daily 018 2018 Inactive Please note dose trazodone 50 mg tablet RxNorm: 933186 1 Tablet(s) PO QHS 018 2018 Inactive sertraline 50 mg tablet RxNorm: 712461 1 Tablet(s) PO daily 018 2017 Inactive amoxicillin 500 mg tablet RxNorm: 143157 1 Tablet(s) PO Q12H 018 2017 Inactive albuterol sulfate 2.5 mg/3 mL (0.083 %) solution for nebulization RxNorm: 068660 1 Vial INH QID 018 2018 Inactive 60/box. Please do not fill early. Please do not auto refill. Prozac 10 mg capsule RxNorm: 692714 1 Capsule(s) PO daily 018 2017 Inactive buspirone 7.5 mg tablet RxNorm: 458557 1 Tablet(s) PO BID 018 2018 Inactive gabapentin 300 mg capsule RxNorm: 097767 1 Capsule(s) PO TID as needed 018 2018 Inactive hydrochlorothiazide 12.5 mg tablet RxNorm: 997341 1 Tablet(s) PO QAM 018 2018 Inactive ranitidine 150 mg tablet RxNorm: 470486 1 Tablet(s) PO BID 018 2018 Inactive Macrobid 100 mg capsule RxNorm: 523687 1 Capsule(s) PO Q12H 018 2017 Inactive Singulair 10 mg tablet RxNorm: 552383 1 Tablet(s) PO daily 018 2018 Inactive Ventolin HFA 90 mcg/actuation aerosol inhaler RxNorm: 3513440 2 Puff(s) INH QID 018 2018 Inactive Singulair 10 mg tablet RxNorm: 011601 1 Tablet(s) PO daily 018 2017 Inactive buspirone 7.5 mg tablet RxNorm: 270569 1 Tablet(s) PO BID 018 2017 Inactive Prozac 10 mg capsule RxNorm: 087928 1 Capsule(s) PO daily 018 2017 Inactive diclofenac sodium 75 mg tablet,delayed release RxNorm: 524795 1 Tablet(s) PO BID 018 2017 Inactive lisinopril 2.5 mg tablet RxNorm: 805753 1 Tablet(s) PO daily 018 2017 Inactive Neilmed Pediatric Sinus Rinse Refill packet RxNorm: 1 Unit Dose NASAL PRN 018 2021 Inactive metoprolol succinate ER 50 mg tablet,extended release 24 hr RxNorm: 986416 1 Tablet(s) PO daily 018 2017 Inactive levothyroxine 50 mcg tablet RxNorm: 306646 1 Tablet(s) PO daily 018 2017 Inactive TRUEplus Lancets 30 gauge RxNorm: 1 Lancets Miscellaneous QAM 018 2017 Inactive 100/box Ventolin HFA 90 mcg/actuation aerosol inhaler RxNorm: 194683 2 Puff(s) INH QID 018 2017 Inactive Aleve 220 mg capsule RxNorm: 8998472 1 Capsule(s) PO BID 018 2018 Inactive ranitidine 150 mg tablet RxNorm: 500103 1 Tablet(s) PO BID 018 2017 Inactive gabapentin 300 mg capsule RxNorm: 453969 1 Capsule(s) PO TID as needed 018 2017 Inactive atorvastatin 20 mg tablet RxNorm: 671824 1 Tablet(s) PO QHS 018 2017 Inactive True Metrix Glucose Test Strip RxNorm: 1 Test Strips Miscellaneous QAM 018 2017 Inactive 50/container Calcium 600-D3 Plus 600 mg calcium-800 unit-50 mg tablet RxNorm: 1 Tablet(s) PO daily take an additonal tablet for itching. 018 2017 Inactive hydrochlorothiazide 12.5 mg tablet RxNorm: 839859 1 Tablet(s) PO QAM 018 2017 Inactive Flintstones Complete (iron) 18 mg iron chewable tablet RxNorm: 1 Tablet(s) PO daily 018 2017 Inactive True Metrix Glucose Meter RxNorm: miscellaneous 019 2018 Inactive sertraline 50 mg tablet RxNorm: 209812 1 Tablet(s) PO daily 020 2019 Inactive loperamide 2 mg tablet RxNorm: 389319 oral 019 2018 Inactive d-mannose oral powder RxNorm: PO 018 2021 Inactive Symbicort 160 mcg-4.5 mcg/actuation HFA aerosol inhaler RxNorm: 0573398 2 Puff(s) INH BID 019 2018 Inactive Medication Administered No Medication Administered data Procedures Procedure Codes Date Urinalysis, dip stick CPT-4: 55848 05/04/2023 [place] Fany Assessment CPT-4: DSWA 01/02 Fall Risk Assessment CPT-4: DFRA 01/27/2023 Hypertension CPT-4: HTN 01/27/2023 Patient Health Questionnaire CPT-4: DPHQ Pain Screening CPT-4: PAS 2022 Tobacco Assessment/Screening CPT-4: TCA Hypertension CPT-4: HTN 08/17/2022 [place] Fany Assessment CPT-4: DSWA 04/02 Patient Health [...] CPT-4: VACP Fall Risk Assessment SNOMED CT: 73026473 4 CPT-4: DFRA1Semmes Fany AssessmentCPT-4: DSWA12/17/2020Urinalysis, dip stickCPT-4: 202323909/24/2020Patient Health QuestionnaireCPT-4: DPHQ 08/19/2020ElectrocardiogramCPT-4: 241131205/14/2020Tobacco Assessment/Screening CPT-4: TCA01/01/2020Fall Risk AssessmentSNOMED CT: 485223682 CPT-4: DFRA01/01/2020Functional AssessmentCPT-4: DFA01/01/2020[place] Fany AssessmentCPT-4: DSWA11/28/2019Patient Health QuestionnaireCPT-4: DPHQ11/28/2019 [place] Fany AssessmentCPT-4: DSWA10/17/2019HypertensionCPT-4: HTN10/17/[address]: 060948089 CPT-4: DFRA09/19/2019Functional AssessmentCPT-4: DFA111/20/2018Urinalysis, dip stickCPT-4: 946841606/21/2019Tobacco Assessment/ScreeningCPT-4: TCA05/24/2019 Patient Health QuestionnaireCPT-4: DPHQ05/24/2019AHA/REBECCA Classification AssessmentCPT-4: DAHA04/25/2019Controlled Substance ReportCPT-4: CTRSU04/25/2019 Urinalysis, dip stickCPT-4: 4930758Urinalysis, dip stickCPT-4: 54807 03/28/20196778G0Y-HuiezlxzebvwnlkVMZ-0: 50048EknjexbK5K-UjxnhvauzwekjvfSPK-3: 89459 HradjxrB0V-QffiakixfoazpsaORD-1: 61643PslsebbP3T-BoklixncuwznobcMMR-3: 20822 QwgfovlM2O-DbgrzcsurbcdvqxFBA-6: 46318DlmftzwP0I-BvjhiwgfjhanqwtNJL-0: 35541 IjbwbhfA5M-ZzdycsbtceotkvgBEK-7: 23980YrkgprnC9J-LohgdiklvyruzsoBIA-9: 63658 CsrpnemC6Y-EiceokatpliwqrtILD-8: 27531DvxlqiyB5C-UyvpltspiycamqzESS-2: 98418 UgqhwrjK5E-HgrfkfzomanwztlJFR-0: 82011QkdauhtL5S-AgwpbcgywmtosktLTP-5: [address]: 141400409 CPT-4: S24Pbvvvai Reason For Visit No Reason For Visit data Plan of Care Planned Activity Notes Codes Status Date Referral: Pending Gynecology Referral Informatio n Referral ProcessedReferral: Pending Pulmonology Referral InformationReferralProcessed Referral: Pending Psychiatry Referral InformationReferralInitiatedReferral: Pending Respiratory Services Referral InformationReferralInitiatedReferral: Pending Ophthalmology Referral InformationReferralInitiatedReferral: [facility] WPtel: [address] [place] [address] USWriter placed a call out to the patient to notify her that it has been recommended that she be seenby a urologist. Patient agreed to be seen, does not have a provider of choice and no transportationissues. Cash Checker faxed referral and clinical notes to [facility] in [place], [place] near the patient's home. Patient to [...] seen and prefers a provider in the [place] or [place] area. Cash Checker placed a call out to everyone listed in the area and the only location that was able to accept the patient's insurance was [place] [address] [place] [address] and spoke with Maylin. Maylin asked that the patient's referral, face sheet and visit notes be faxed to . [employer]er faxed over requested documents. Patient appointment confirmation letter generated and mailed to her home address. Patient to call to schedule an appointment.ProcessedReferral: [facility] WPtel: [address] [facility] [address] [id number] USPatient notified that it has been advised that she be seen by Neurology. Patient agreed to be seen and prefers to be seen by a provider in the [place], [place] area. Patient denies any concerns with transportation, and prefers to schedule her own appointment. Cash Checker placed a call out to [facility] and spoke with [...]
--- OUTSIDE RECORDS SUMMARY | 2024-01-03 23:27 | XMS_ITS | CCD ---
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 Name Role Phone Anna Culver NP Primary Care Provider Unav ailable Unavailable Chronic Care Management Unavaila ble Summary Purpose DataExchange Insurance Providers Payer name Policy type / Coverage type Covered democrat ID Effective Begin Date Effective End Date SUKI MAYO [id number] Unknown Unknown Family history Mother Diagnosis Age [...] 05/31/2018 Education level Unknown Some High School 10th05/31/20184524PltwnmsxdmZqwonshNdzxjdsvls68/29/2018Tobacco historySNOMED CT: [id number] never smoked or chewed qyhfapd8405/31/2018Alcohol historySNOMED CT: 561170708Rprej drinks gyzbklb8905/31/2018Has the patient ever used illegal drugs? UnknownHas never used illegal drugs05/31/2018DNR Order/ Advanced Directive UnknownFull Code05/31/2018 Allergies, Adverse Reactions, Alerts Substance Reaction Codes Entered Date Inactivated Date Status OxyContin itch, RxNorm: 608158 01/13/2021 No Inactive Da te Active *No known food allergies Obifdao1509/06/2018No Inactive DateActiveMethylprednisolonehivesRxNorm: 6902 09/06/2018No Inactive DateActive Problems Condition Codes Effective Dates Condition St atus Adult BMI 50.0-59.9 kg/sq m ICD-10: Z68. 43 ICD-9: V85.4308ActiveHypertensive heart disease without heart failure ICD-10: I11.9 ICD-9: 402.9003/ctiveMajor depression, recurrentICD-10: F33.9 ICD-9: 296.3009/ctiveType 2 diabetes mellitus with peripheral neuropathy ICD-10: E11.42 ICD-9: 250.6002/ActiveAllergic rhinitisICD-10: J30.9 ICD-9: 477.903/ctiveHyperlipidemia, mixedICD-10: E78.2 ICD-9: 272.203/ctiveNonintractable epileptic seizures due to external causes, without status epilepticusICD-10: G40.509 ICD-9: 345.9008/ctiveVitamin D deficiencyICD-10: E55.9 ICD-9: 268.903/ctiveUTI (urinary tract infection)ICD-10: N39.0 ICD-9: 599.006/ctiveInsomniaICD-10: G47.00 ICD-9: 780.5204/ctiveGERD (gastroesophageal reflux disease)ICD-10: K21.9 [...] UXZ.01 ICD-9: UXZ.0112esolvedUpper respiratory infectionICD-10: J06.9 ICD-9: 465.908/1ResolvedSyncope and collapseICD-10: R55 ICD-9: 780.203ActiveUrinary retention with incomplete bladder emptying ICD-10: R33.9 ICD-9: 788.2101ActiveApnea, not elsewhere classifiedICD-10: R06.81 ICD-9: 786.0305/10/2018InactiveChest pain, unspecifiedICD-10: R07.9 ICD-9: 786.5002/InactiveChronic kidney disease, unspecifiedICD-10: N18.9 ICD-9: 585.909/InactiveEncounter for immunizationICD-10: Z23 ICD-9: V03.907/InactiveEncounter for preprocedural cardiovascular examinationICD-10: Z01.810 ICD-9: V72.8106/InactiveHeadacheICD-10: R51 ICD-9: 784.001/10/2018InactiveOther terminologist (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ICD-10: Z79.899 ICD-9: V58.6907/InactiveType [...] Start Date Stop Date Status Fill Instructions Januvia 25 mg tablet RxNorm: 079121 Take 1 Tablet(s) Oral every day 023 2022 Inactive Ozempic 1 mg/dose (4 mg/3 mL) subcutaneous pen injector RxNorm: 4279775 INJECT 1 UNITS DOSE SUBCUTANEOUSLY ON TUESDAY OF EACH WEEK 023 2022 Inactive cetirizine 10 mg tablet RxNorm: 6497505 TAKE (1) TABLET BY MOUTH DAILY 023 2023 Inactive amoxicillin 500 mg tablet RxNorm: 539988 Take 1 Tablet(s) Oral two times a day 023 2022 Inactive omeprazole 40 mg capsule,delayed release RxNorm: 929912 Take 1 Capsule(s) Oral at bed time 023 2022 Inactive Easy Touch Alcohol Prep Pads RxNorm: 973229 USE EACH MORNING 023 2024 Active montelukast 10 mg tablet RxNorm: 395724 Take 1 Tablet(s) Oral every day 023 2022 Inactive gabapentin 300 mg capsule RxNorm: 590705 Take 1 Capsule(s) Oral three times a day 023 2022 Inactive metformin ER 500 mg 24 hr tablet,extended release RxNorm: 1187152 Take 1 Tablet(s) Oral every day with the evening meal 023 2022 Inactive famotidine 20 mg tablet RxNorm: 207199 Take 1 Tablet(s) Oral every morning 023 2022 Inactive levothyroxine 50 mcg tablet RxNorm: 430738 Take 1 Tablet(s) Oral every day 023 [address] [facility]: Approval Requested hydrochlorothiazide 25 mg tablet RxNorm: 707819 Take 1 Tablet(s) Oral every day 023 [address] [facility]: Approval Requested atorvastatin 20 mg tablet RxNorm: 079973 Take 1 Tablet(s) Oral every night at bedtime 023 2023 Active Macrobid 100 mg capsule RxNorm: 710785 1 Capsule(s) Oral every 12 hours with food 023 2022 Inactive omeprazole 40 mg capsule,delayed release RxNorm: 20021111 Take 1 Capsule(s) Oral every night at bedtime 023 2022 Inactive trazodone 50 mg tablet RxNorm: 893218 Administer 1 Tablet(s) Oral every night at bedtime 023 No Stop Date Active cholecalciferol (vitamin D3) 50 mcg (2,000 unit) tablet RxNorm: 096107 Take 1 Tablet(s) Oral every day 023 2023 Active Ozempic 1 mg/dose (4 mg/3 mL) subcutaneous pen injector RxNorm: 0890041 USE 1 UNIT DOSE SUBCUTANEOUSLY ON TUE OF EACH WEEK 023 2022 Inactive lisinopril 2.5 mg tablet RxNorm: 536043 Take 1 Tablet(s) Oral every day 023 [address] [facility]: Approval Requested Ozempic 1 mg/dose (4 mg/3 mL) subcutaneous pen injector RxNorm: 5971771 USE 1 UNIT DOSE SUBCUTANEOUSLY ON TUE OF EACH WEEK 023 2022 Inactive omeprazole 40 mg capsule,delayed release RxNorm: 20021111 Take 1 Capsule(s) Oral every night at bedtime 023 2022 Inactive gabapentin 300 mg capsule RxNorm: 523247 Take 1 Capsule(s) Oral three times a day 023 2022 Inactive montelukast 10 mg tablet RxNorm: 552241 Take 1 Tablet(s) Oral every day 023 2022 Inactive omeprazole 20 mg capsule,delayed release RxNorm: 778160 Take 1 Capsule(s) Oral every evening 2022 Inactive Alcohol Prep Pads RxNorm: 741350 USE EACH MORNING 2021 Inactive E11.42 clotrimazole 1 % topical cream RxNorm: 896428 Apply 1 Application Topical two times a day as needed apply to affected area(s) twice daily until healed 2021 Inactive Victoza 2-Sebastián 0.6 mg/0.1 mL (18 mg/3 mL) subcutaneous pen injector RxNorm: 151435 Inject 0.6-1.8 Milligram(s) Subcutaneous once a week Inject 0.6mg/0.1ml week one, 1.2mg/0.2ml week two, 1.8/0.3ml weekly thereafter 2021 Inactive ibuprofen 800 mg tablet RxNorm: 003921 Take 1 Tablet(s) Oral Q8H as needed for pain take with food No Stop Date Active Ozempic 1 mg/dose (4 mg/3 mL) subcutaneous pen injector RxNorm: 7076522 Take 1 Unit Dose Subcutaneous QWeek Tuesday2021 Inactive lisinopril 2.5 mg tablet RxNorm: 157478 Take 1 Tablet(s) Oral every day 2021 Inactive lisinopril 2.5 mg tablet RxNorm: 300794 Take 1 Tablet(s) Oral every day 022 2022 Inactive hydrochlorothiazide 25 mg tablet RxNorm: 372992 Take 1 Tablet(s) Oral every day 022 2021 Inactive Ozempic 1 mg/dose (4 mg/3 mL) subcutaneous pen injector RxNorm: 3298008 Take 1 Unit Dose Subcutaneous QWeek 022 2021 Inactive famotidine 20 mg tablet RxNorm: 402755 Take 1 Tablet(s) Oral every morning 2021 Inactive levothyroxine 50 mcg tablet RxNorm: 104075 Take 1 Tablet(s) Oral every day 022 2021 Inactive atorvastatin 20 mg tablet RxNorm: 169759 Take 1 Tablet(s) Oral every night at bedtime 022 2021 Inactive Cleocin T 1 % lotion RxNorm: 545756 Take 2 Gram(s) Topical every day 022 2021 Inactive Cleocin T 1 % lotion RxNorm: 194390 Take 2 Gram(s) Topical every day 022 2021 Inactive Ozempic 1 mg/dose (4 mg/3 mL) subcutaneous pen injector RxNorm: 9035768 Take 1 Unit Dose Subcutaneous QWeek 022 2021 Inactive Ozempic 0.25 mg or 0.5 mg (2 mg/1.5 mL) subcutaneous pen injector RxNorm: 3038921 INJECT 0.5 MGS SUBCUTANEOUSLY EVERY WEEK 022 2021 Inactive omeprazole 20 mg capsule,delayed release RxNorm: 696940 Take 1 Capsule(s) Oral every evening 022 2021 Inactive levothyroxine 50 mcg tablet RxNorm: 958797 Take 1 Tablet(s) Oral every day 022 2021 Inactive atorvastatin 20 mg tablet RxNorm: 277715 Take 1 Tablet(s) Oral every night at bedtime 022 2021 Inactive This refill negates all other refills of this medication lisinopril 2.5 mg tablet RxNorm: 710899 Take 1 Tablet(s) Oral every day 022 2021 Inactive gabapentin 300 mg capsule RxNorm: 403484 Take 1 Capsule(s) Oral three times a day 022 2021 Inactive montelukast 10 mg tablet RxNorm: 934647 Take 1 Tablet(s) Oral every day 022 2021 Inactive Myrbetriq 50 mg tablet,extended release RxNorm: 6353766 1 Tablet(s) Oral every day 022 No Stop Date Active cholecalciferol (vitamin D3) 50 mcg (2,000 unit) tablet RxNorm: 018997 Take 1 Tablet(s) Oral every day 2022 Inactive Ozempic 0.25 mg or 0.5 mg (2 mg/1.5 mL) subcutaneous pen injector RxNorm: 1504713 inject 0.5 milligrams subcutaneously every week 2021 Inactive Ozempic 0.25 mg or 0.5 mg (2 mg/1.5 mL) subcutaneous pen injector RxNorm: 5973400 Take 0.5 Capsule(s) Injection once a week 2021 Inactive omeprazole 20 mg capsule,delayed release RxNorm: 293364 Take 1 Capsule(s) Oral every evening 2020 Inactive Ozempic 0.25 mg or 0.5 mg (2 mg/1.5 mL) subcutaneous pen injector RxNorm: 2179607 Take 0.25 Milligram(s) Subcutaneous once a week 2021 Inactive Easy Touch Alcohol Prep Pads RxNorm: 503888 USE DIRECTED EACH MORNING 2021 Inactive Probiotic 10 billion cell capsule RxNorm: 2281329 Take 1 Capsule(s) Oral every day 2021 Inactive levothyroxine 50 mcg tablet RxNorm: 605926 Take 1 Tablet(s) Oral every day 2020 Inactive Acid Press Feeder (famotidine) 20 mg tablet RxNorm: 643785 Take 1 Tablet(s) Oral every morning 2020 Inactive Heartburn Relief (famotidine) 10 mg tablet RxNorm: 709166 Take 1 Tablet(s) Oral QAM 2020 Inactive levothyroxine 50 mcg tablet RxNorm: 840899 Take 1 Tablet(s) Oral QD 2020 Inactive Singulair 10 mg tablet RxNorm: 122162 TAKE (1) TABLET BY MOUTH DAILY 2020 Inactive metformin 1,000 mg tablet RxNorm: 976882 1 Tablet(s) Oral two times a day 021 2021 Inactive lisinopril 2.5 mg tablet RxNorm: 689269 Take 1 Tablet(s) Oral every day 021 2020 Inactive hydrochlorothiazide 25 mg tablet RxNorm: 398874 Take 1 Tablet(s) Oral every day 021 2020 Inactive ondansetron 4 mg disintegrating tablet RxNorm: 273587 1 Tablet(s) Oral two times a day 021 2020 Inactive Sudafed 12 Hour 120 mg tablet,extended release RxNorm: 6384719 TAKE 1 TABLET BY MOUTH EVERY 12 HOURS NEEDED 021 2021 Inactive Heartburn Relief (famotidine) 10 mg tablet RxNorm: 433532 Take 1 Tablet(s) Oral every morning 021 2020 Inactive omeprazole 20 mg capsule,delayed release RxNorm: 836500 1 Capsule(s) Oral every evening 021 2020 Inactive sertraline 100 mg tablet RxNorm: 064785 2 Tablet(s) Oral every day 021 2020 Inactive levothyroxine 50 mcg tablet RxNorm: 436645 TAKE (1) TABLET BY MOUTH DAILY 021 2020 Inactive metformin 500 mg tablet RxNorm: 112184 1 Tablet(s) Oral two times a day take with 500mg to equal 1000mg 021 2020 Inactive gabapentin 300 mg capsule RxNorm: 731339 TAKE 1 CAPSULE BY MOUTH THREE TIMES A DAY 021 2020 Inactive lisinopril 2.5 mg tablet RxNorm: 806706 TAKE 1 TABLET BY MOUTH DAILY 021 2020 Inactive gabapentin 300 mg capsule RxNorm: 484281 TAKE 1 CAPSULE BY MOUTH THREE TIMES A DAY 021 2020 Inactive Singulair 10 mg tablet RxNorm: 376857 TAKE (1) TABLET BY MOUTH DAILY 021 2020 Inactive metformin 1,000 mg tablet RxNorm: 486786 1 Tablet(s) Oral two times a day 2020 Inactive atorvastatin 40 mg tablet RxNorm: 113946 1 Tablet(s) Oral every day 021 2020 Inactive omeprazole 20 mg capsule,delayed release RxNorm: 498695 1 Capsule(s) Oral every evening 021 2020 Inactive famotidine 10 mg tablet RxNorm: 079359 1 Tablet(s) Oral every morning 021 2020 Inactive Alcohol Prep Pads RxNorm: 753001 USE EACH MORNING 021 2020 Inactive omeprazole 20 mg capsule,delayed release RxNorm: 866349 1 Capsule(s) Oral two times a day 2021 Inactive omeprazole 20 mg capsule,delayed release RxNorm: 509329 TAKE 1 CAPSULE BY MOUTH EVERY DAY 2021 Inactive Macrobid 100 mg capsule RxNorm: 016007 1 Capsule(s) Oral every 12 hours with food 2020 Inactive omeprazole 20 mg capsule,delayed release RxNorm: 053221 1 Capsule(s) Oral two times a day 2021 Inactive metformin 1,000 mg tablet RxNorm: 654637 1 Tablet(s) Oral two times a day 2020 Inactive start on September 11, 2020 metformin 500 mg tablet RxNorm: 279281 1 Tablet(s) Oral two times a day take with 500mg to equal 1000mg 2019 Inactive gabapentin 300 mg capsule RxNorm: 329937 TAKE 1 CAPSULE BY MOUTH THREE TIMES DAILY 2020 Inactive cetirizine 10 mg tablet RxNorm: 3957703 TAKE (1) TABLET BY MOUTH DAILY 2020 Inactive metformin 500 mg tablet RxNorm: 343668 1 Tablet(s) Oral two times a day 2019 Inactive loperamide 2 mg tablet RxNorm: 983646 1 Tablet(s) Oral as needed take one tablet after each loose stool, maximum of 8 tablets in 24 hours 020 2021 Inactive Sudafed 12 Hour 120 mg tablet,extended release RxNorm: 8499449 TAKE 1 TABLET BY MOUTH EVERY 12 HOURS NEEDED 020 2019 Inactive hydrochlorothiazide 25 mg tablet RxNorm: 346153 TAKE (1) TABLET BY MOUTH EVERY DAY 020 2019 Inactive omeprazole 20 mg capsule,delayed release RxNorm: 731490 TAKE 1 CAPSULE BY MOUTH EVERY DAY 020 2020 Inactive metformin 500 mg tablet RxNorm: 813753 1 Tablet(s) Oral every day 020 2019 Inactive True Metrix Glucose Test Strip RxNorm: 1 Test Strips Miscellaneous two times a day as needed No Stop Date Active metformin 500 mg tablet RxNorm: 780018 1 Tablet(s) Oral every day 020 2019 Inactive diclofenac sodium 75 mg tablet,delayed release RxNorm: 010420 1 Tablet(s) PO BID 020 2021 Inactive This refill negates all other refills of this medication Sudafed 12 Hour 120 mg tablet,extended release RxNorm: 7273921 TAKE 1 TABLET BY MOUTH EVERY 12 HOURS NEEDED 020 2019 Inactive True Metrix Glucose Test Strip RxNorm: 1 Test Strips Miscellaneous every morning 020 2019 Inactive 100/container True Metrix Glucose Test Strip RxNorm: 1 Test Strips Miscellaneous QAM 020 2019 Inactive 100/container loperamide 2 mg tablet RxNorm: 745593 1 Tablet(s) Oral as needed take one tablet after each loose stool, maximum of 8 tablets in 24 hours 020 2019 Inactive cetirizine 10 mg tablet RxNorm: 9571497 1 Tablet(s) PO daily 020 2019 Inactive loperamide 2 mg tablet RxNorm: 955102 1 Tablet(s) Oral as needed take one tablet after each loose stool, maximum of 8 tablets in 24 hours 2019 Inactive quetiapine 100 mg tablet RxNorm: 924340 1 Tablet(s) Oral every night at bedtime 2019 Inactive levothyroxine 50 mcg tablet RxNorm: 238213 1 Tablet(s) PO daily 2020 Inactive gabapentin 300 mg capsule RxNorm: 414947 1 Capsule(s) PO TID 2019 Inactive levothyroxine 50 mcg tablet RxNorm: 455525 1 Tablet(s) PO daily 2019 Inactive lisinopril 2.5 mg tablet RxNorm: 799116 1 Tablet(s) PO daily 2020 Inactive gabapentin 300 mg capsule RxNorm: 212300 1 Capsule(s) PO TID 2019 Inactive cetirizine 10 mg tablet RxNorm: 2416782 1 Tablet(s) PO daily 2019 Inactive Singulair 10 mg tablet RxNorm: 607622 1 Tablet(s) PO daily 2020 Inactive gentamicin 0.3 % eye drops RxNorm: 772538 1 Drop(s) ophthalmic (eye) four times a day 2019 Inactive gentamicin 0.3 % eye drops RxNorm: 690759 1 Drop(s) ophthalmic (eye) four times a day 2019 Inactive gentamicin 0.3 % eye drops RxNorm: 469623 1 Drop(s) ophthalmic (eye) four times a day 2019 Inactive hydrochlorothiazide 25 mg tablet RxNorm: 455999 1 Tablet(s) Oral every day 2019 Inactive Sudafed 12 Hour 120 mg tablet,extended release RxNorm: 5772941 TAKE (1) TABLET BY MOUTH EVERY 12 HOURS NEEDED 2019 Inactive loperamide 2 mg tablet RxNorm: 856420 1 Tablet(s) Oral as needed take one tablet after each loose stool, maximum of 8 tablets in 24 hours 020 2019 Inactive loperamide 2 mg tablet RxNorm: 240398 1 Tablet(s) Oral as needed take one tablet after each loose stool, maximum of 8 tablets in 24 hours 020 2019 Inactive atorvastatin 40 mg tablet RxNorm: 215441 1 Tablet(s) Oral every day 020 2020 Inactive quetiapine 100 mg tablet RxNorm: 252043 1 Tablet(s) Oral every night at bedtime 2019 Inactive sertraline 100 mg tablet RxNorm: 992214 1 Tablet(s) Oral 020 2019 Inactive omeprazole 20 mg capsule,delayed release RxNorm: 838509 1 Capsule(s) Oral every day 2019 Inactive amoxicillin 250 mg capsule RxNorm: 842689 1 Capsule(s) Oral three times a day 2019 Inactive multivitamin with iron-mineral tablet RxNorm: 1 Tablet(s) Oral every day 2021 Inactive cetirizine 10 mg tablet RxNorm: 3253730 1 Tablet(s) PO daily 2019 Inactive This refill negates all other refills of this medication. Please do not auto refill Singulair 10 mg tablet RxNorm: 430292 1 Tablet(s) PO daily 2019 Inactive This refill negates all other refills of this medication gabapentin 300 mg capsule RxNorm: 778312 1 Capsule(s) PO TID 2019 Inactive lisinopril 2.5 mg tablet RxNorm: 293888 1 Tablet(s) PO daily 2019 Inactive levothyroxine 50 mcg tablet RxNorm: 806584 1 Tablet(s) PO daily 2019 Inactive This refill negates all other refills of this medication hydrochlorothiazide 25 mg tablet RxNorm: 114190 1 Tablet(s) Oral every day 2019 Inactive fenugreek seed extract 500 mg capsule RxNorm: 1 Capsule(s) Oral three times a day 2021 Inactive Alcohol Prep Pads RxNorm: 942767 1 Patch TOP QAM 020 2020 Inactive loperamide 2 mg tablet RxNorm: 906338 1 Tablet(s) Oral as needed take one [...] 2019 Inactive hydrochlorothiazide 25 mg tablet RxNorm: 279500 1 Tablet(s) Oral every day 2019 Inactive Sudafed 12 Hour 120 mg tablet,extended release RxNorm: 7969174 1 Tablet(s) Oral every 12 hours as needed 2018 Inactive omeprazole 20 mg capsule,delayed release RxNorm: 576683 1 Capsule(s) Oral every day 2019 Inactive Sudafed 12 Hour 120 mg tablet,extended release RxNorm: 9498375 1 Tablet(s) Oral every 12 hours as needed 2018 Inactive pantoprazole 40 mg tablet,delayed release RxNorm: 955089 1 Tablet(s) Oral every day 2018 Inactive discontinue any other H2Blkr. and PPI albuterol sulfate 2.5 mg/3 mL (0.083 %) solution for nebulization RxNorm: 207301 1 Vial Inhalation every four hours as needed as needed for dyspnea 2019 Inactive 60/box. This refill negates all other refills of this medication. Please do not fill early. Please do not auto refill. Symbicort 160 mcg-4.5 mcg/actuation HFA aerosol inhaler RxNorm: 8272928 2 Puff(s) INH BID No Stop Date Active Alcohol Prep Pads RxNorm: 394454 1 Patch TOP QAM 019 2019 Inactive Ventolin HFA 90 mcg/actuation aerosol inhaler RxNorm: 825666 2 Puff(s) INH QID 019 2019 Inactive Please do not fill early. Please do not auto refill. This refill negates all other refills of this medication True Metrix Glucose Test Strip RxNorm: 1 Test Strips Miscellaneous QAM 019 2019 Inactive 100/container atorvastatin 40 mg tablet RxNorm: 242095 1 Tablet(s) Oral every day 019 2019 Inactive buspirone 7.5 mg tablet RxNorm: 080635 1 Tablet(s) PO BID 019 2020 Inactive This refill negates all other refills of this medication hydrochlorothiazide 12.5 mg tablet RxNorm: 784388 1 Tablet(s) PO QAM 019 2019 Inactive levmetamfetamine 50 mg nasal inhaler RxNorm: 1 Unit(s) NASAL Q3-4H Do not use more than every 3 hours or 8 times/24hours 019 2021 Inactive Please do not auto refill. This refill negates all other refills of this medication Ventolin HFA 90 mcg/actuation aerosol inhaler RxNorm: 827448 2 Puff(s) INH QID 019 2018 Inactive Please do not fill early. Please do not auto refill. This refill negates all other refills of this medication Singulair 10 mg tablet RxNorm: 476067 1 Tablet(s) PO daily 019 2019 Inactive This refill negates all other refills of this medication cetirizine 10 mg tablet RxNorm: 3799144 1 Tablet(s) PO daily 019 2019 Inactive This refill negates all other refills of this medication. Please do not auto refill levothyroxine 50 mcg tablet RxNorm: 745440 1 Tablet(s) PO daily 019 2019 Inactive This refill negates all other refills of this medication diclofenac sodium 75 mg tablet,delayed release RxNorm: 004543 1 Tablet(s) PO BID 019 2019 Inactive This refill negates all other refills of this medication ranitidine 150 mg tablet RxNorm: 840233 1 Tablet(s) PO BID 019 2018 Inactive This refill negates all other refills of this medication Calcium 600-D3 Plus (mag-zinc) 600 mg calcium-800 unit-50 mg tablet RxNorm: 1 Tablet(s) PO daily take an additonal tablet for itching. 019 2018 Inactive This refill negates all other refills of this medication albuterol sulfate 2.5 mg/3 mL (0.083 %) solution for nebulization RxNorm: 375940 1 Vial INH QID 2018 Inactive 60/box. This refill negates all other refills of this medication. Please do not fill early. Please do not auto refill. lisinopril 2.5 mg tablet RxNorm: 274606 1 Tablet(s) PO daily 019 2019 Inactive gabapentin 300 mg capsule RxNorm: 447953 1 Capsule(s) PO TID 019 2019 Inactive atorvastatin 20 mg tablet RxNorm: 111249 1 Tablet(s) PO QHS 2018 Inactive This refill negates all other refills of this medication TRUEplus Lancets 30 gauge RxNorm: 1 Lancets Miscellaneous QAM 019 2018 Inactive 100/box gabapentin 300 mg capsule RxNorm: 116400 1 Capsule(s) PO TID 082018 Inactive César Beckett (iron) 18 mg iron chewable tablet RxNorm: 1 Tablet(s) PO daily 2021 Inactive This refill negates all other refills of this medication gabapentin 300 mg capsule RxNorm: 736543 1 Capsule(s) PO TID as needed 2018 Inactive True Metrix Glucose Test Strip RxNorm: 1 Test Strips Miscellaneous QA 2018 Inactive 100/container Alcohol Prep Pads RxNorm: 699068 1 Patch TOP QAM 2018 Inactive TRUEplus Lancets 30 gauge RxNorm: 1 Lancets Miscellaneous QAM 2018 Inactive 100/box lisinopril 2.5 mg tablet RxNorm: 577970 1 Tablet(s) PO daily 2018 Inactive ranitidine 150 mg tablet RxNorm: 953272 1 Tablet(s) PO BID 2018 Inactive This refill negates all other refills of this medication albuterol sulfate 2.5 mg/3 mL (0.083 %) solution for nebulization RxNorm: 373839 1 Vial INH QID 2018 Inactive 60/box. [...] this medication gabapentin 300 mg capsule RxNorm: 826307 1 Capsule(s) PO TID as needed 2018 Inactive atorvastatin 20 mg tablet RxNorm: 730626 1 Tablet(s) PO QHS 019 2018 Inactive This refill negates all other refills of this medication trazodone 50 mg tablet RxNorm: 177228 1 Tablet(s) PO QHS 019 2018 Inactive This refill negates all other refills of this medication Ventolin HFA 90 mcg/actuation aerosol inhaler RxNorm: 951590 2 Puff(s) INH QID 019 2018 Inactive Please do not fill early. Please do not auto refill. This refill negates all other refills of this medication Calcium 600-D3 Plus 600 mg calcium-800 unit-50 mg tablet RxNorm: 1 Tablet(s) PO daily take an additonal tablet for itching. 019 2018 Inactive This refill negates all other refills of this medication Singulair 10 mg tablet RxNorm: 220344 1 Tablet(s) PO daily 019 2018 Inactive This refill negates all other refills of this medication buspirone 7.5 mg tablet RxNorm: 630195 1 Tablet(s) PO BID 019 2018 Inactive This refill negates all other refills of this medication diclofenac sodium 75 mg tablet,delayed release RxNorm: 237166 1 Tablet(s) PO BID 019 2018 Inactive This refill negates all other refills of this medication hydrochlorothiazide 12.5 mg tablet RxNorm: 246784 1 Tablet(s) PO QAM 019 2018 Inactive metoprolol succinate ER 50 mg tablet,extended release 24 hr RxNorm: 415020 1 Tablet(s) PO daily 019 2018 Inactive This refill negates all other refills of this medication levothyroxine 50 mcg tablet RxNorm: 546665 1 Tablet(s) PO daily 019 2018 Inactive This refill negates all other refills of this medication cetirizine 10 mg tablet RxNorm: 2267548 1 Tablet(s) PO daily 019 2018 Inactive This refill negates all other refills of this medication. Please do not auto refill Flintstones Complete (iron) 18 mg iron chewable tablet RxNorm: 1 Tablet(s) PO daily 2018 Inactive This refill negates all other refills of this medication buspirone 7.5 mg tablet RxNorm: 613976 1 Tablet(s) PO BID 2018 Inactive cetirizine 10 mg tablet RxNorm: 7758238 1 Tablet(s) PO daily 2018 Inactive Guaiasorb DM 10 mg-100 mg/5 mL oral liquid RxNorm: 274919 10 Milliliter(s) PO As needed every 4 hr 2018 Inactive Vicks Vaporub 4.7 %-1.2 %-2.6 % topical ointment RxNorm: 1605875 1 Application TOP TID 2018 Inactive levmetamfetamine 50 mg nasal inhaler RxNorm: 1 Unit(s) NASAL Q3-4H 2017 Inactive sertraline 50 mg tablet RxNorm: 177462 1 Tablet(s) PO daily 2018 Inactive Please note dose trazodone 50 mg tablet RxNorm: 176260 1 Tablet(s) PO QHS 2018 Inactive sertraline 50 mg tablet RxNorm: 615430 1 Tablet(s) PO daily 2017 Inactive amoxicillin 500 mg tablet RxNorm: 676425 1 Tablet(s) PO Q12H 2017 Inactive albuterol sulfate 2.5 mg/3 mL (0.083 %) solution for nebulization RxNorm: 300308 1 Vial INH QID 2018 Inactive 60/box. Please do not fill early. Please do not auto refill. Prozac 10 mg capsule RxNorm: 095747 1 Capsule(s) PO daily 018 2017 Inactive buspirone 7.5 mg tablet RxNorm: 860254 1 Tablet(s) PO BID 018 2018 Inactive gabapentin 300 mg capsule RxNorm: 376466 1 Capsule(s) PO TID as needed 2018 Inactive hydrochlorothiazide 12.5 mg tablet RxNorm: 260338 1 Tablet(s) PO QAM 018 2018 Inactive ranitidine 150 mg tablet RxNorm: 341796 1 Tablet(s) PO BID 018 2018 Inactive Macrobid 100 mg capsule RxNorm: 052925 1 Capsule(s) PO Q12H 018 2017 Inactive Singulair 10 mg tablet RxNorm: 466344 1 Tablet(s) PO daily 018 2018 Inactive Ventolin HFA 90 mcg/actuation aerosol inhaler RxNorm: 8595382 2 Puff(s) INH QID 018 2018 Inactive Singulair 10 mg tablet RxNorm: 669690 1 Tablet(s) PO daily 018 2017 Inactive buspirone 7.5 mg tablet RxNorm: 823466 1 Tablet(s) PO BID 018 2017 Inactive Prozac 10 mg capsule RxNorm: 914786 1 Capsule(s) PO daily 018 2017 Inactive diclofenac sodium 75 mg tablet,delayed release RxNorm: 249727 1 Tablet(s) PO BID 018 2017 Inactive lisinopril 2.5 mg tablet RxNorm: 058686 1 Tablet(s) PO daily 018 2017 Inactive Neilmed Pediatric Sinus Rinse Refill packet RxNorm: 1 Unit Dose NASAL PRN 018 2021 Inactive metoprolol succinate ER 50 mg tablet,extended release 24 hr RxNorm: 394777 1 Tablet(s) PO daily 018 2017 Inactive levothyroxine 50 mcg tablet RxNorm: 011935 1 Tablet(s) PO daily 018 2017 Inactive TRUEplus Lancets 30 gauge RxNorm: 1 Lancets Miscellaneous QAM 018 2017 Inactive 100/box Ventolin HFA 90 mcg/actuation aerosol inhaler RxNorm: 840251 2 Puff(s) INH QID 018 2017 Inactive Aleve 220 mg capsule RxNorm: 3240700 1 Capsule(s) PO BID 018 2018 Inactive ranitidine 150 mg tablet RxNorm: 382084 1 Tablet(s) PO BID 018 2017 Inactive gabapentin 300 mg capsule RxNorm: 242788 1 Capsule(s) PO TID as needed 018 2017 Inactive atorvastatin 20 mg tablet RxNorm: 670348 1 Tablet(s) PO QHS 018 2017 Inactive True Metrix Glucose Test Strip RxNorm: 1 Test Strips [facility] 018 2017 Inactive 50/container Calcium 600-D3 Plus 600 mg calcium-800 unit-50 mg tablet RxNorm: 1 Tablet(s) PO daily take an additonal tablet for itching. 018 2017 Inactive hydrochlorothiazide 12.5 mg tablet RxNorm: 083547 1 Tablet(s) PO QAM 018 2017 Inactive Flintstones Complete (iron) 18 mg iron chewable tablet RxNorm: 1 Tablet(s) PO daily 018 2017 Inactive True Metrix Glucose Meter RxNorm: miscellaneous 019 2018 Inactive sertraline 50 mg tablet RxNorm: 471964 1 Tablet(s) PO daily 020 2019 Inactive loperamide 2 mg tablet RxNorm: 886260 oral 019 2018 Inactive d-mannose oral powder RxNorm: PO 018 2021 Inactive Symbicort 160 mcg-4.5 mcg/actuation HFA aerosol inhaler RxNorm: 7379248 2 Puff(s) INH BID 019 2018 Inactive Medication Administered No Medication Administered data Procedures Procedure Codes Date Patient Health Questionnaire CPT-4: DPHQ Electrocardiogram CPT-4: 32935 06/24/2023 Electrocardiogram Finding/Abnormal: _Sinus Rhythm Low voltage in precordial leads. - Nonspecific T-abnormality.CPT-4: 99116Vtmtsgr91/22/2023atient Health Questionnaire Little interest or pleasure in [...] Score:/0-4 =Negative for depression- NO PLAN NEEDEDCPT-4: XGXTVhmoiym61/22/2023 Functional Assessment ADLs - Patient needs direct assistance, cuing, or supervision, to perform the following safely:/*Noassistance, cuing, or supervision needed, IADLs - Patient needs direct assistance, cuing, or supervision, to perform the following safely:/taking medications, IADLs - Patient needs direct assistance,cuing, or supervision, to perform the following safely:/transportationCPT-4: DFAUnknown 06/24/2023Urinalysis, dip stickCPT-4: 8271341Semmes Fany Assessment CPT-4: DSWA01/27/2023Fall Risk AssessmentCPT-4: DFRA01/27/2023HypertensionCPT-4: HTN01/27/2023atient Health QuestionnaireCPT-4: DPHQ11/23/2022ain Screening CPT-4: PAS2022Tobacco Assessment/ScreeningCPT-4: TCA2022Hypertension CPT-4: HTN08/17/2022emmes Fany AssessmentCPT-4: DSWA04/19/2022atient Health QuestionnaireCPT-4: DPHQ04/19/2022nnual Wellness Visit (Subsequent Visit)CPT-4: N043873/atient Health QuestionnaireCPT-4: DPHQ10/07/2021 Frailty ScreeningCPT-4: SFD05/20/2021HypertensionCPT-4: HTN04/01/2021Tobacco Assessment/ScreeningCPT-4: TCA03/13/2021atient Health QuestionnaireCPT-4: DPHQ 03/13/2021Mini Mental State ExamCPT-4: DMMA01/29/2021nnual Wellness Visit (Subsequent Visit)CPT-4: I68447401/13/2021dvanced Care PlanningCPT-4: VACP 01/13/2021Fall Risk AssessmentSNOMED CT: 198927912 CPT-4: DFRA01/13/2021emmes Fany AssessmentCPT-4: DSWA12/17/2020Urinalysis, dip stickCPT-4: 806265709/24/2020Patient Health QuestionnaireCPT-4: DPHQ 08/19/2020ElectrocardiogramCPT-4: 2860859Tobacco Assessment/Screening CPT-4: TCA01/01/2020Fall Risk AssessmentSNOMED CT: 660065289 CPT-4: DFRA01/01/2020Functional AssessmentCPT-4: DFA01/01/2020Semmes Fany AssessmentCPT-4: DSWA11/28/2019Patient Health QuestionnaireCPT-4: DPHQ11/28/2019 [place] Fany AssessmentCPT-4: DSWA10/17/2019HypertensionCPT-4: HTN10/17/[address]: 312644910 CPT-4: DFRA09/19/2019Functional AssessmentCPT-4: DFA111/20/2018Urinalysis, dip stickCPT-4: 7257225Tobacco Assessment/ScreeningCPT-4: TCA05/24/2019 Patient Health QuestionnaireCPT-4: DPHQ05/24/2019AHA/REBECCA Classification AssessmentCPT-4: DAHA04/25/2019Controlled Substance ReportCPT-4: CTRSU04/25/2019 Urinalysis, dip stickCPT-4: 170083203/28/2019Urinalysis, dip stickCPT-4: 48693 03/28/20195504Z3T-CfsddypjrdivtkmOGF-6: 16860SkstmncO9A-VbpnvdhrqvtnumxVYU-0: 86954 HzkyjxvD5T-FttaghjdedbphcdUNK-8: 92951ImppthvD5N-BnprurmhfnzhkxlCGL-2: 47337 XzrukbgF2X-CahxnqypvqvcbqqLNT-6: 69364XehltqoP8S-PinkejknmfofckgOPX-5: 64178 IjupyhpO5C-BfuyaaiqaakjaagAYN-0: 43552HqbidcaT6U-VjnjjjncnblmvlyKYP-6: 89906 VssystvH5S-RyglomhyjbpjaowJCS-2: 84298TlouqrxG1E-OvnvrxuetuoivodZLS-0: 46240 GbdkasfN0V-SpmchrtbmoetzlqJYR-8: 82403ExfvtdzJ2P-XnuxkhrddwtqytaMIJ-6: [address]: 530849495 CPT-4: A55Gzqgdxb Vital Signs Date Vital 06/24/2023 Blood Pressure 1: 122/76 Code: 8480-6 BMI: 51.1 Code: 03412-6 Heart Rate 1: 67 bpm Height: 4'11 Code: 8302-2 Respiratory Rate: 16 bpm SpO2: 98% Temperature: 36.7 (C) / 98.1 (F) Weight: 253 lbs Code: 65148-6 Reason For Visit Reason For Visit Effective Dates Notes HTN 06/24/2023 depression 06/24/2023 weight gain/obesity 06/24/2023 diabetes mellitus 06/24/2023 Interim health update 06/24/2023 Encounters Encounter Performer Location Location Address Codes Magdi e ([id number]) Home or Residence Vi sit Est Pt - Moderate Level, 40 mins Diagnosis: Type 2 diabetes mellitus with peripheral neuropathy[ICD10: E11.42] Diagnosis: Hypertensive heart disease without heart failure[ICD10: I11.9] Diagnosis: Major depression, recurrent[ICD10: F33.9] Diagnosis: Adult BMI 50.0-59.9 kg/sq m[ICD10: Z68.43]Annahussein Bourgeois [address] [place] [address] 50745HGX-3: 46399 06/24/2023 Plan of Care Planned Activity Notes Codes Status Date Visit Plan: Visit time spent inv olved in medical discussion with patient, including obtaining history from patient, systems review, diagnostic and laboratory test review with patient. Assessment findings and plan reviewed with patient, including time to provide counseling, and education to patient E11.42-250.60 Type 2 diabetes mellitus with peripheral neuropathy (blood sugars continue to vary, metformin and ozempic continues, will add Januvia) I11.9-402.90 Hypertensive heart disease without heart failure (BP stable with current medications) F33.9-296.30 Major depression, recurrent (mood stable with trazodone) Z68.43-V85.43 Adult BMI 50.0-59.9 kg/sq m (exercise daily, 17 pound weight loss since November 2022, remain motivated for weight loss) 06/24/2023atient Education: IimzndyosrlpVliujffql30/22/2023atient Education: WfbakuwqymIlalfvrgc11/22/2023atient Education: Patient Medication Summary Nvjybqqgk23/22/2023atient Education: Weight BqufNurdlvgkl30/22/2023atient Education: SdaueaciRgdabvjtv97/22/2023atient Education: ObesityCompleted 06/24/2023ppointment: Anna Culver WPtel: [address] [place] [address] [id number]: Anna Culver WPtel: [address] [place] [address] [id number]: Anna Culver WPtel: [address] [place] [address] [id number]: Anna Culver WPtel: [address] [place] [address] [id number]: Anna Culver WPtel: [phone] [place] [address] [id number]/ppointment: Anna Culver WPtel: [phone] [place] [address] [id number]: Chivo Bishop WPtel: [address] [place] [address] [id number]: Chivo Bishop WPtel: [phone] [place] [address] [id number]: Mikey Nair WPtel: [facility]0 [facility] [id number]: Chivo Bishop WPtel: [address] [place] [address] [id number]: Chivo Bishop WPtel: [address] [place] [address] [id number]: Chivo Bishop WPtel: [address] [place] [address] USETV111/11/2020ppointment: Chivo Bishop WPtel: [address] [place] [address] USETV110/13/2020ppointment: Chivo Bishop WPtel: [address] [place] [address] USETV1ppointment: Chivo Bishop WPtel: [address] [place] [address] PKFMUJ1906/10/2021ppointment: Anna Culver WPtel: [address] [place], [place] [id number] USETV06/02/2021ppointment: Chivo Bishop WPtel: [phone] [place] [address] USETV05/20/2021ppointment: Anna Culver WPtel: [phone] [place] [address] USETV04/28/2021ppointment: Chivo Bishop WPtel: [phone] [place] [address] USETV04/15/2021ppointment: Anna Culver WPtel: [phone] [place] [address] [id number]: Anna Culver WPtel: [phone] [place] [address] USETV03/24/2021ppointment: Anna Culver WPtel: [phone] [place] [address] USETV03/13/2021ppointment: Anna Culver WPtel: [phone] [place] [address] [id number]: Chivo Bishop WPtel: [phone] [place] [address] [id number]: Anna Culver WPtel: [phone] [place] [address] USETV04ppointment: Anna Culver WPtel: [phone] [place] [address] [id number]: Chivo Bishop WPtel: [phone] [place] [address] USETV11/28/2020ppointment: Anna Culver WPtel: [phone] [facility] [address] [place] [address] USETV02ppointment: Anna Culver WPtel: [phone] [place] [address] [address] [place] [address] [id number]/ppointment: Anna Culver WPtel: [phone] [place] [address] [address] [place] [address] GVD3142511/25/2019Appointment: Anna Culver WPtel: [phone] [place] [address] [address] [place] [address] USETV110/26/2019Appointment: Anna Culver WPtel: [phone] [place] [address] USETV110/19/2019Appointment: Anna Culver WPtel: [address] [place] [address] USETV1Appointment: Anna Culevr WPtel: [address] [place] [address] [place] [address] USETV1Appointment: Gianna Birmingham: [facility]7 [facility] 100 VcgiaotCO13033 [id number]: Anna Culver WPtel: [address] [place] [address] [id number]: Anna Culver WPtel: [phone] [place] [address] [place] [address] CGA50802/09/2020Appointment: Anna Culver WPtel: [phone] [place] [address] [address] [place] [address] [id number]/Appointment: Anna Culver WPtel: [phone] [place] [address] [address] [place] [address] [id number]: Anna Culver WPtel: [phone] [place] [address] [id number]: Anna Culver WPtel: [phone] [place] [address] [id number]: Anna Culver WPtel: [address] [place] [address] [id number]: Anna Culver WPtel: [address] [place] [address] [id number]: Anna Culver WPtel: [address] [place] [address] [id number]: Anna Culver WPtel: [address] [place] [address] [id number]: Sudha Hernadez WPtel: [facility]0 [facility] [id number]: Sudha Hernadez WPtel: [address] [facility] [address] [id number]: Sandip Charlene WPtel: [address] [facility] [address] CsgwrsSD[address] [id number]: Enedelia Delgado45Appointment: Charlene Oropeza WPtel: [address] [facility] [address] [id number]: Rasta Palafox WPtel: [address] [facility] [address] [id number]: Rasta Palafox WPtel: [address] [facility] [address] [id number]: Rasta Palafox WPtel: [address] [facility] [address] [id number] [id number]: Rasta Palafox WPtel: [address] [facility] [address] [id number]: Pending Gynecology Referral InformationReferral ProcessedReferral: Pending Pulmonology Referral InformationReferralProcessed Referral: Pending Psychiatry Referral InformationReferralInitiatedReferral: Pending Respiratory Services Referral InformationReferralInitiatedReferral: Pending Ophthalmology Referral InformationReferralInitiatedReferral: [facility] WPtel: [address] [place] [address] [address] [place] [address] USWriter placed a call out to the patient to notify her that it has been recommended that she be seenby a urologist. Patient agreed to be seen, does not have a provider of choice and no transportationissues. Tool Repairer faxed referral and clinical notes to [facility] in [place], [place] near the patient's home. Patient to [...] seen and prefers a provider in the [place] or [place] area. Tool Repairer placed a call out to everyone listed in the area and the only location that was able to accept the patient's insurance was [place] [address] [place] [address] and spoke with Maylin. Maylin asked that the patient's referral, face sheet and visit notes be faxed to . Tool Repairer faxed over requested documents. Patient appointment confirmation letter generated and mailed to her home address. Patient to call to schedule an appointment.ProcessedReferral: [facility] WPtel: [address] HyozchMD[address] USPatient notified that it has been advised that she be seen by Neurology. Patient agreed to be seen and prefers to be seen by a provider in the [place], [place] area. Patient denies any concerns with transportation, and prefers to schedule her own appointment. Tool Repairer placed a call out to [facility] and spoke [...] to provide counseling, and education to patient E11.42-250.60 Type 2 diabetes mellitus with peripheral neuropathy (blood sugars continue to vary, metformin and ozempic continues, will add Januvia) I11.9-402.90 Hypertensive heart disease without heart failure (BP stable with current medications) F33.9-296.30 Major depression, recurrent (mood stable with trazodone) Z68.43-V85.43 Adult BMI 50.0-59.9 kg/sq m (exercise daily, 17 pound weight loss since November 2022, remain motivated for weight loss) 06/24/2023 Medical Equipment No Medical Equipment data Advance Directives No Advance Directive data
--- OUTSIDE RECORDS SUMMARY | 2024-01-03 23:27 | XMS_ITS | CCD ---
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 Manager Fleet Name Role Phone Palomo KING, Anna Primary Care Provider Unav ailable Unavailable Chronic Care Management Unavaila ble Summary Purpose DataExchange Insurance Providers Payer name Policy type / Coverage type Covered democrat ID Effective Begin Date Effective End Date [facility] [id number] Unknown Unknown Family history Mother Diagnosis Age [...] 05/31/2018 Education level Unknown Some High School 10th05/31/20188937IhsifgrepfDicfxznLwuavttxmd33/29/2018Tobacco historySNOMED CT: [id number] never smoked or chewed [id number]/31/2018Alcohol historySNOMED CT: 608900431Hvvbj drinks [id number]/31/2018Has the patient ever used illegal drugs? UnknownHas never used illegal drugs05/31/2018DNR Order/ Advanced Directive UnknownFull Code05/31/2018 Allergies, Adverse Reactions, Alerts Substance Reaction Codes Entered Date Inactivated Date Status OxyContin itch, RxNorm: 986982 01/13/2021 No Inactive Da te Active *No known food allergies Mzkixzc7609/06/2018No Inactive DateActiveMethylprednisolonehivesRxNorm: 6902 09/06/2018No Inactive DateActive Problems Condition Codes Effective Dates Condition St atus Allergic rhinitis ICD-10: J30.9 ICD-9: 477.903/2ActiveHyperlipidemia, mixedICD-10: E78.2 ICD-9: 272.203/03/2022ActiveHypertensive heart disease without heart failureICD- 10: I11.9 [...] depressed moodICD-10: F43.23 ICD-9: 309.2812ActiveHypothyroidICD-10: E03.9 ICD-9: 244.912ActiveEdema, unspecifiedICD-10: R60.9 ICD-9: 782.310/06/2018ActiveHypertensive [...] examinationICD-10: Z01.810 ICD-9: V72.8106/InactiveHeadacheICD-10: R51 ICD-9: 784.001InactiveOther correction (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ICD-10: Z79.899 ICD-9: V58.6907/InactiveType [...] (4 mg/3 mL) subcutaneous pen injector RxNorm: 0551412 INJECT 1 UNITS DOSE SUBCUTANEOUSLY ON TUESDAY OF EACH WEEK 023 2022 Inactive cetirizine 10 mg tablet RxNorm: 8156886 TAKE (1) TABLET BY MOUTH DAILY 023 2023 Inactive amoxicillin 500 mg tablet RxNorm: 175508 Take 1 Tablet(s) Oral two times a day 023 2022 Inactive omeprazole 40 mg capsule,delayed release RxNorm: 422162 Take 1 Capsule(s) Oral at bed time 023 2022 Inactive Easy Touch Alcohol Prep Pads RxNorm: 552799 USE EACH MORNING 023 2024 Active montelukast 10 mg tablet RxNorm: 500458 Take 1 Tablet(s) Oral every day 023 2022 Inactive gabapentin 300 mg capsule RxNorm: 601133 Take 1 Capsule(s) Oral three times a day 023 2022 Inactive metformin ER 500 mg 24 hr tablet,extended release RxNorm: 4455253 Take 1 Tablet(s) Oral every day with the evening meal 2022 Inactive famotidine 20 mg tablet RxNorm: 002581 Take 1 Tablet(s) Oral every morning 023 2022 Inactive levothyroxine 50 mcg tablet RxNorm: 200643 Take 1 Tablet(s) Oral every day 023 2023 [facility] Approval Requested hydrochlorothiazide 25 mg tablet RxNorm: 639908 Take 1 Tablet(s) Oral every day 023 2023 Active Msg From [facility]: Approval Requested atorvastatin 20 mg tablet RxNorm: 114307 Take 1 Tablet(s) Oral every night at bedtime 023 2023 Active Macrobid 100 mg capsule RxNorm: 913108 1 Capsule(s) Oral every 12 hours with food 023 2022 Inactive omeprazole 40 mg capsule,delayed release RxNorm: 20021111 Take 1 Capsule(s) Oral every night at bedtime 023 2022 Inactive trazodone 50 mg tablet RxNorm: 410701 Administer 1 Tablet(s) Oral every night at bedtime 023 No Stop Date Active cholecalciferol (vitamin D3) 50 mcg (2,000 unit) tablet RxNorm: 719761 Take 1 Tablet(s) Oral every day 023 2023 Active Ozempic 1 mg/dose (4 mg/3 mL) subcutaneous pen injector RxNorm: 1914000 USE 1 UNIT DOSE SUBCUTANEOUSLY ON TUE OF EACH WEEK 023 2022 Inactive lisinopril 2.5 mg tablet RxNorm: 462072 Take 1 Tablet(s) Oral every day 023 2022 Inactive Msg From [facility]: Dr. Zapata Requested Ozempic 1 mg/dose (4 mg/3 mL) subcutaneous pen injector RxNorm: 5703495 USE 1 UNIT DOSE SUBCUTANEOUSLY ON TUE OF EACH WEEK 023 2022 Inactive omeprazole 40 mg capsule,delayed release RxNorm: 20021111 Take 1 Capsule(s) Oral every night at bedtime 023 2022 Inactive gabapentin 300 mg capsule RxNorm: 626282 Take 1 Capsule(s) Oral three times a day 023 2022 Inactive montelukast 10 mg tablet RxNorm: 446055 Take 1 Tablet(s) Oral every day 023 2022 Inactive omeprazole 20 mg capsule,delayed release RxNorm: 537193 Take 1 Capsule(s) Oral every evening 022 2022 Inactive Alcohol Prep Pads RxNorm: 106373 USE EACH MORNING 022 2021 Inactive E11.42 clotrimazole 1 % topical cream RxNorm: 262251 Apply 1 Application Topical two times a day as needed apply to affected area(s) twice daily until healed 2021 Inactive Victoza 2-Sebastián 0.6 mg/0.1 mL (18 mg/3 mL) subcutaneous pen injector RxNorm: 051876 Inject 0.6-1.8 Milligram(s) Subcutaneous once a week Inject 0.6mg/0.1ml week one, 1.2mg/0.2ml week two, 1.8/0.3ml weekly thereafter 2021 Inactive ibuprofen 800 mg tablet RxNorm: 233816 Take 1 Tablet(s) Oral Q8H as needed for pain take with food No Stop Date Active Ozempic 1 mg/dose (4 mg/3 mL) subcutaneous pen injector RxNorm: 3336919 Take 1 Unit Dose Subcutaneous QWeek Tuesday2021 Inactive lisinopril 2.5 mg tablet RxNorm: 134905 Take 1 Tablet(s) Oral every day 2021 Inactive lisinopril 2.5 mg tablet RxNorm: 713225 Take 1 Tablet(s) Oral every day 2022 Inactive hydrochlorothiazide 25 mg tablet RxNorm: 322593 Take 1 Tablet(s) Oral every day 022 2021 Inactive Ozempic 1 mg/dose (4 mg/3 mL) subcutaneous pen injector RxNorm: 4232813 Take 1 Unit Dose Subcutaneous QWeek 022 2021 Inactive famotidine 20 mg tablet RxNorm: 884327 Take 1 Tablet(s) Oral every morning 2021 Inactive levothyroxine 50 mcg tablet RxNorm: 435271 Take 1 Tablet(s) Oral every day 022 2021 Inactive atorvastatin 20 mg tablet RxNorm: 486378 Take 1 Tablet(s) Oral every night at bedtime 2021 Inactive Cleocin T 1 % lotion RxNorm: 939579 Take 2 Gram(s) Topical every day 022 2021 Inactive Cleocin T 1 % lotion RxNorm: 764657 Take 2 Gram(s) Topical every day 022 2021 Inactive Ozempic 1 mg/dose (4 mg/3 mL) subcutaneous pen injector RxNorm: 3083303 Take 1 Unit Dose Subcutaneous QWeek 022 2021 Inactive Ozempic 0.25 mg or 0.5 mg (2 mg/1.5 mL) subcutaneous pen injector RxNorm: 1957303 INJECT 0.5 MGS SUBCUTANEOUSLY EVERY WEEK 022 2021 Inactive omeprazole 20 mg capsule,delayed release RxNorm: 232617 Take 1 Capsule(s) Oral every evening 022 2021 Inactive levothyroxine 50 mcg tablet RxNorm: 879097 Take 1 Tablet(s) Oral every day 022 2021 Inactive atorvastatin 20 mg tablet RxNorm: 074040 Take 1 Tablet(s) Oral every night at bedtime 2021 Inactive This refill negates all other refills of this medication lisinopril 2.5 mg tablet RxNorm: 325754 Take 1 Tablet(s) Oral every day 022 2021 Inactive gabapentin 300 mg capsule RxNorm: 152208 Take 1 Capsule(s) Oral three times a day 2021 Inactive montelukast 10 mg tablet RxNorm: 805613 Take 1 Tablet(s) Oral every day 022 2021 Inactive Myrbetriq 50 mg tablet,extended release RxNorm: 7447602 1 Tablet(s) Oral every day No Stop Date Active cholecalciferol (vitamin D3) 50 mcg (2,000 unit) tablet RxNorm: 647209 Take 1 Tablet(s) Oral every day 022 2022 Inactive Ozempic 0.25 mg or 0.5 mg (2 mg/1.5 mL) subcutaneous pen injector RxNorm: 1371559 inject 0.5 milligrams subcutaneously every week 2021 Inactive Ozempic 0.25 mg or 0.5 mg (2 mg/1.5 mL) subcutaneous pen injector RxNorm: 6402103 Take 0.5 Capsule(s) Injection once a week 022 2021 Inactive omeprazole 20 mg capsule,delayed release RxNorm: 364218 Take 1 Capsule(s) Oral every evening 2020 Inactive Ozempic 0.25 mg or 0.5 mg (2 mg/1.5 mL) subcutaneous pen injector RxNorm: 7715958 Take 0.25 Milligram(s) Subcutaneous once a week 2021 Inactive Easy Touch Alcohol Prep Pads RxNorm: 424757 USE DIRECTED EACH MORNING 2021 Inactive Probiotic 10 billion cell capsule RxNorm: 4631741 Take 1 Capsule(s) Oral every day 2021 Inactive levothyroxine 50 mcg tablet RxNorm: 106733 Take 1 Tablet(s) Oral every day 2020 Inactive Acid Commercial [employer] (famotidine) 20 mg tablet RxNorm: 977719 Take 1 Tablet(s) Oral every morning 2020 Inactive Heartburn Relief (famotidine) 10 mg tablet RxNorm: 244153 Take 1 Tablet(s) Oral QAM 2020 Inactive levothyroxine 50 mcg tablet RxNorm: 420433 Take 1 Tablet(s) Oral QD 2020 Inactive Singulair 10 mg tablet RxNorm: 417041 TAKE (1) TABLET BY MOUTH DAILY 2020 Inactive metformin 1,000 mg tablet RxNorm: 123539 1 Tablet(s) Oral two times a day 2021 Inactive lisinopril 2.5 mg tablet RxNorm: 636750 Take 1 Tablet(s) Oral every day 2020 Inactive hydrochlorothiazide 25 mg tablet RxNorm: 778226 Take 1 Tablet(s) Oral every day 021 2020 Inactive ondansetron 4 mg disintegrating tablet RxNorm: 356796 1 Tablet(s) Oral two times a day 021 2020 Inactive Sudafed 12 Hour 120 mg tablet,extended release RxNorm: 0440400 TAKE 1 TABLET BY MOUTH EVERY 12 HOURS NEEDED 021 2021 Inactive Heartburn Relief (famotidine) 10 mg tablet RxNorm: 627753 Take 1 Tablet(s) Oral every morning 021 2020 Inactive omeprazole 20 mg capsule,delayed release RxNorm: 869520 1 Capsule(s) Oral every evening 021 2020 Inactive sertraline 100 mg tablet RxNorm: 939180 2 Tablet(s) Oral every day 021 2020 Inactive levothyroxine 50 mcg tablet RxNorm: 527037 TAKE (1) TABLET BY MOUTH DAILY 021 2020 Inactive metformin 500 mg tablet RxNorm: 618764 1 Tablet(s) Oral two times a day take with 500mg to equal 1000mg 021 2020 Inactive gabapentin 300 mg capsule RxNorm: 508429 TAKE 1 CAPSULE BY MOUTH THREE TIMES A DAY 021 2020 Inactive lisinopril 2.5 mg tablet RxNorm: 121985 TAKE 1 TABLET BY MOUTH DAILY 021 2020 Inactive gabapentin 300 mg capsule RxNorm: 988406 TAKE 1 CAPSULE BY MOUTH THREE TIMES A DAY 021 2020 Inactive Singulair 10 mg tablet RxNorm: 163665 TAKE (1) TABLET BY MOUTH DAILY 021 2020 Inactive metformin 1,000 mg tablet RxNorm: 891104 1 Tablet(s) Oral two times a day 021 2020 Inactive atorvastatin 40 mg tablet RxNorm: 006832 1 Tablet(s) Oral every day 021 2020 Inactive omeprazole 20 mg capsule,delayed release RxNorm: 592801 1 Capsule(s) Oral every evening 021 2020 Inactive famotidine 10 mg tablet RxNorm: 785950 1 Tablet(s) Oral every morning 021 2020 Inactive Alcohol Prep Pads RxNorm: 681869 USE EACH MORNING 2020 Inactive omeprazole 20 mg capsule,delayed release RxNorm: 634928 1 Capsule(s) Oral two times a day 2021 Inactive omeprazole 20 mg capsule,delayed release RxNorm: 438009 TAKE 1 CAPSULE BY MOUTH EVERY DAY 2021 Inactive Macrobid 100 mg capsule RxNorm: 688500 1 Capsule(s) Oral every 12 hours with food 2020 Inactive omeprazole 20 mg capsule,delayed release RxNorm: 459688 1 Capsule(s) Oral two times a day 2021 Inactive metformin 1,000 mg tablet RxNorm: 527496 1 Tablet(s) Oral two times a day 2020 Inactive start on September 11, 2020 metformin 500 mg tablet RxNorm: 915959 1 Tablet(s) Oral two times a day take with 500mg to equal 1000mg 2019 Inactive gabapentin 300 mg capsule RxNorm: 900384 TAKE 1 CAPSULE BY MOUTH THREE TIMES DAILY 2020 Inactive cetirizine 10 mg tablet RxNorm: 2167879 TAKE (1) TABLET BY MOUTH DAILY 2020 Inactive metformin 500 mg tablet RxNorm: 200406 1 Tablet(s) Oral two times a day 2019 Inactive loperamide 2 mg tablet RxNorm: 530816 1 Tablet(s) Oral as needed take one tablet after each loose stool, maximum of 8 tablets in 24 hours 2021 Inactive Sudafed 12 Hour 120 mg tablet,extended release RxNorm: 9228382 TAKE 1 TABLET BY MOUTH EVERY 12 HOURS NEEDED 2019 Inactive hydrochlorothiazide 25 mg tablet RxNorm: 929645 TAKE (1) TABLET BY MOUTH EVERY DAY 020 2019 Inactive omeprazole 20 mg capsule,delayed release RxNorm: 617400 TAKE 1 CAPSULE BY MOUTH EVERY DAY 020 2020 Inactive metformin 500 mg tablet RxNorm: 405529 1 Tablet(s) Oral every day 020 2019 Inactive True Metrix Glucose Test Strip RxNorm: 1 Test Strips Miscellaneous two times a day as needed No Stop Date Active metformin 500 mg tablet RxNorm: 075317 1 Tablet(s) Oral every day 2019 Inactive diclofenac sodium 75 mg tablet,delayed release RxNorm: 289472 1 Tablet(s) PO BID 2021 Inactive This refill negates all other refills of this medication Sudafed 12 Hour 120 mg tablet,extended release RxNorm: 3478115 TAKE 1 TABLET BY MOUTH EVERY 12 HOURS NEEDED 020 2019 Inactive True Metrix Glucose Test Strip RxNorm: 1 Test Strips Miscellaneous every morning 020 2019 Inactive 100/container True Metrix Glucose Test Strip RxNorm: 1 Test Strips Miscellaneous QA 020 2019 Inactive 100/container loperamide 2 mg tablet RxNorm: 682437 1 Tablet(s) Oral as needed take one tablet after each loose stool, maximum of 8 tablets in 24 hours 020 2019 Inactive cetirizine 10 mg tablet RxNorm: 2250391 1 Tablet(s) PO daily 020 2019 Inactive loperamide 2 mg tablet RxNorm: 580995 1 Tablet(s) Oral as needed take one tablet after each loose stool, maximum of 8 tablets in 24 hours 020 2019 Inactive quetiapine 100 mg tablet RxNorm: 913956 1 Tablet(s) Oral every night at bedtime 020 2019 Inactive levothyroxine 50 mcg tablet RxNorm: 772012 1 Tablet(s) PO daily 020 2020 Inactive gabapentin 300 mg capsule RxNorm: 805590 1 Capsule(s) PO TID 2019 Inactive levothyroxine 50 mcg tablet RxNorm: 343171 1 Tablet(s) PO daily 2019 Inactive lisinopril 2.5 mg tablet RxNorm: 918310 1 Tablet(s) PO daily 020 2020 Inactive gabapentin 300 mg capsule RxNorm: 738702 1 Capsule(s) PO TID 2019 Inactive cetirizine 10 mg tablet RxNorm: 6652130 1 Tablet(s) PO daily 020 2019 Inactive Singulair 10 mg tablet RxNorm: 613835 1 Tablet(s) PO daily 2020 Inactive gentamicin 0.3 % eye drops RxNorm: 993429 1 Drop(s) ophthalmic (eye) four times a day 2019 Inactive gentamicin 0.3 % eye drops RxNorm: 598161 1 Drop(s) ophthalmic (eye) four times a day 2019 Inactive gentamicin 0.3 % eye drops RxNorm: 849048 1 Drop(s) ophthalmic (eye) four times a day 2019 Inactive hydrochlorothiazide 25 mg tablet RxNorm: 507733 1 Tablet(s) Oral every day 2019 Inactive Sudafed 12 Hour 120 mg tablet,extended release RxNorm: 3855908 TAKE (1) TABLET BY MOUTH EVERY 12 HOURS NEEDED 2019 Inactive loperamide 2 mg tablet RxNorm: 717099 1 Tablet(s) Oral as needed take one tablet after each loose stool, maximum of 8 tablets in 24 hours 020 2019 Inactive loperamide 2 mg tablet RxNorm: 669544 1 Tablet(s) Oral as needed take one tablet after each loose stool, maximum of 8 tablets in 24 hours 2019 Inactive atorvastatin 40 mg tablet RxNorm: 743598 1 Tablet(s) Oral every day 020 2020 Inactive quetiapine 100 mg tablet RxNorm: 009862 1 Tablet(s) Oral every night at bedtime 2019 Inactive sertraline 100 mg tablet RxNorm: 737533 1 Tablet(s) Oral 020 2019 Inactive omeprazole 20 mg capsule,delayed release RxNorm: 143681 1 Capsule(s) Oral every day 020 2019 Inactive amoxicillin 250 mg capsule RxNorm: 407786 1 Capsule(s) Oral three times a day 2019 Inactive multivitamin with iron-mineral tablet RxNorm: 1 Tablet(s) Oral every day 2021 Inactive cetirizine 10 mg tablet RxNorm: 0360215 1 Tablet(s) PO daily 2019 Inactive This refill negates all other refills of this medication. Please do not auto refill Singulair 10 mg tablet RxNorm: 517267 1 Tablet(s) PO daily 2019 Inactive This refill negates all other refills of this medication gabapentin 300 mg capsule RxNorm: 583763 1 Capsule(s) PO TID 2019 Inactive lisinopril 2.5 mg tablet RxNorm: 186957 1 Tablet(s) PO daily 2019 Inactive levothyroxine 50 mcg tablet RxNorm: 454165 1 Tablet(s) PO daily 2019 Inactive This refill negates all other refills of this medication hydrochlorothiazide 25 mg tablet RxNorm: 394473 1 Tablet(s) Oral every day 2019 Inactive fenugreek seed extract 500 mg capsule RxNorm: 1 Capsule(s) Oral three times a day 020 2021 Inactive Alcohol Prep Pads RxNorm: 469563 1 Patch TOP QAM 020 2020 Inactive loperamide 2 mg tablet RxNorm: 874336 1 Tablet(s) Oral as needed take one [...] 2019 Inactive hydrochlorothiazide 25 mg tablet RxNorm: 135477 1 Tablet(s) Oral every day 2019 Inactive Sudafed 12 Hour 120 mg tablet,extended release RxNorm: 3315270 1 Tablet(s) Oral every 12 hours as needed 2018 Inactive omeprazole 20 mg capsule,delayed release RxNorm: 401663 1 Capsule(s) Oral every day 2019 Inactive Sudafed 12 Hour 120 mg tablet,extended release RxNorm: 8240469 1 Tablet(s) Oral every 12 hours as needed 2018 Inactive pantoprazole 40 mg tablet,delayed release RxNorm: 906908 1 Tablet(s) Oral every day 2018 Inactive discontinue any other H2Blkr. and PPI albuterol sulfate 2.5 mg/3 mL (0.083 %) solution for nebulization RxNorm: 415985 1 Vial Inhalation every four hours as needed as needed for dyspnea 2019 Inactive 60/box. This refill negates all other refills of this medication. Please do not fill early. Please do not auto refill. Symbicort 160 mcg-4.5 mcg/actuation HFA aerosol inhaler RxNorm: 8128147 2 Puff(s) INH BID 11/15/2 019 No Stop Date Active Alcohol Prep Pads RxNorm: 260806 1 Patch TOP QAM 019 2019 Inactive Ventolin HFA 90 mcg/actuation aerosol inhaler RxNorm: 277809 2 Puff(s) INH QID 019 2019 Inactive Please do not fill early. Please do not auto refill. This refill negates all other refills of this medication True Metrix Glucose Test Strip RxNorm: 1 Test Strips Miscellaneous QAM 019 2019 Inactive 100/container atorvastatin 40 mg tablet RxNorm: 969923 1 Tablet(s) Oral every day 019 2019 Inactive buspirone 7.5 mg tablet RxNorm: 831158 1 Tablet(s) PO BID 019 2020 Inactive This refill negates all other refills of this medication hydrochlorothiazide 12.5 mg tablet RxNorm: 607371 1 Tablet(s) PO QAM 019 2019 Inactive levmetamfetamine 50 mg nasal inhaler RxNorm: 1 Unit(s) NASAL Q3-4H Do not use more than every 3 hours or 8 times/24hours 2021 Inactive Please do not auto refill. This refill negates all other refills of this medication Ventolin HFA 90 mcg/actuation aerosol inhaler RxNorm: 369104 2 Puff(s) INH QID 019 2018 Inactive Please do not fill early. Please do not auto refill. This refill negates all other refills of this medication Singulair 10 mg tablet RxNorm: 448728 1 Tablet(s) PO daily 019 2019 Inactive This refill negates all other refills of this medication cetirizine 10 mg tablet RxNorm: 5048109 1 Tablet(s) PO daily 019 2019 Inactive This refill negates all other refills of this medication. Please do not auto refill levothyroxine 50 mcg tablet RxNorm: 032887 1 Tablet(s) PO daily 019 2019 Inactive This refill negates all other refills of this medication diclofenac sodium 75 mg tablet,delayed release RxNorm: 964875 1 Tablet(s) PO BID 019 2019 Inactive This refill negates all other refills of this medication ranitidine 150 mg tablet RxNorm: 745913 1 Tablet(s) PO BID 019 2018 Inactive This refill negates all other refills of this medication Calcium 600-D3 Plus (mag-zinc) 600 mg calcium-800 unit-50 mg tablet RxNorm: 1 Tablet(s) PO daily take an additonal tablet for itching. 019 2018 Inactive This refill negates all other refills of this medication albuterol sulfate 2.5 mg/3 mL (0.083 %) solution for nebulization RxNorm: 014145 1 Vial INH QID 2018 Inactive 60/box. This refill negates all other refills of this medication. Please do not fill early. Please do not auto refill. lisinopril 2.5 mg tablet RxNorm: 459970 1 Tablet(s) PO daily 019 2019 Inactive gabapentin 300 mg capsule RxNorm: 528070 1 Capsule(s) PO TID 019 2019 Inactive atorvastatin 20 mg tablet RxNorm: 506107 1 Tablet(s) PO QHS 2018 Inactive This refill negates all other refills of this medication TRUEplus Lancets 30 gauge RxNorm: 1 Lancets Miscellaneous QAM 019 2018 Inactive 100/box gabapentin 300 mg capsule RxNorm: 752567 1 Capsule(s) PO TID 019 2018 Inactive Flintstones Complete (iron) 18 mg iron chewable tablet RxNorm: 1 Tablet(s) PO daily 019 2021 Inactive This refill negates all other refills of this medication gabapentin 300 mg capsule RxNorm: 137562 1 Capsule(s) PO TID as needed /29/ 2019 Inactive True Metrix Glucose Test Strip RxNorm: 1 Test Strips Miscellaneous QA 019 2018 Inactive 100/container Alcohol Prep Pads RxNorm: 245562 1 Patch TOP QA 019 2018 Inactive TRUEplus Lancets 30 gauge RxNorm: 1 Lancets Miscellaneous QA 019 2018 Inactive 100/box lisinopril 2.5 mg tablet RxNorm: 000865 1 Tablet(s) PO daily 019 2018 Inactive ranitidine 150 mg tablet RxNorm: 012399 1 Tablet(s) PO BID 019 2018 Inactive This refill negates all other refills of this medication albuterol sulfate 2.5 mg/3 mL (0.083 %) solution for nebulization RxNorm: 150521 1 Vial INH QID 019 2018 Inactive [...] this medication gabapentin 300 mg capsule RxNorm: 567445 1 Capsule(s) PO TID as needed 019 2018 Inactive atorvastatin 20 mg tablet RxNorm: 767135 1 Tablet(s) PO QHS 019 2018 Inactive This refill negates all other refills of this medication trazodone 50 mg tablet RxNorm: 385688 1 Tablet(s) PO QHS 019 2018 Inactive This refill negates all other refills of this medication Ventolin HFA 90 mcg/actuation aerosol inhaler RxNorm: 979089 2 Puff(s) INH QID 019 2018 Inactive Please do not fill early. Please do not auto refill. This refill negates all other refills of this medication Calcium 600-D3 Plus 600 mg calcium-800 unit-50 mg tablet RxNorm: 1 Tablet(s) PO daily take an additonal tablet for itching. 019 2018 Inactive This refill negates all other refills of this medication Singulair 10 mg tablet RxNorm: 331405 1 Tablet(s) PO daily 019 2018 Inactive This refill negates all other refills of this medication buspirone 7.5 mg tablet RxNorm: 150201 1 Tablet(s) PO BID 019 2018 Inactive This refill negates all other refills of this medication diclofenac sodium 75 mg tablet,delayed release RxNorm: 780717 1 Tablet(s) PO BID 019 2018 Inactive This refill negates all other refills of this medication hydrochlorothiazide 12.5 mg tablet RxNorm: 775317 1 Tablet(s) PO QAM 019 2018 Inactive metoprolol succinate ER 50 mg tablet,extended release 24 hr RxNorm: 168024 1 Tablet(s) PO daily 019 2018 Inactive This refill negates all other refills of this medication levothyroxine 50 mcg tablet RxNorm: 321186 1 Tablet(s) PO daily 019 2018 Inactive This refill negates all other refills of this medication cetirizine 10 mg tablet RxNorm: 9198722 1 Tablet(s) PO daily 019 2018 Inactive This refill negates all other refills of this medication. Please do not auto refill Flintstones Complete (iron) 18 mg iron chewable tablet RxNorm: 1 Tablet(s) PO daily 019 2018 Inactive This refill negates all other refills of this medication buspirone 7.5 mg tablet RxNorm: 693312 1 Tablet(s) PO BID 019 2018 Inactive cetirizine 10 mg tablet RxNorm: 1764754 1 Tablet(s) PO daily 2018 Inactive Guaiasorb DM 10 mg-100 mg/5 mL oral liquid RxNorm: 444689 10 Milliliter(s) PO As needed every 4 hr 2018 Inactive Vicks Vaporub 4.7 %-1.2 %-2.6 % topical ointment RxNorm: 2040800 1 Application TOP TID 2018 Inactive levmetamfetamine 50 mg nasal inhaler RxNorm: 1 Unit(s) NASAL Q3-4H 2017 Inactive sertraline 50 mg tablet RxNorm: 717326 1 Tablet(s) PO daily 2018 Inactive Please note dose trazodone 50 mg tablet RxNorm: 757345 1 Tablet(s) PO QHS 2018 Inactive sertraline 50 mg tablet RxNorm: 152411 1 Tablet(s) PO daily 2017 Inactive amoxicillin 500 mg tablet RxNorm: 209612 1 Tablet(s) PO Q12H 2017 Inactive albuterol sulfate 2.5 mg/3 mL (0.083 %) solution for nebulization RxNorm: 694427 1 Vial INH QID 2018 Inactive 60/box. Please do not fill early. Please do not auto refill. Prozac 10 mg capsule RxNorm: 403632 1 Capsule(s) PO daily 2017 Inactive buspirone 7.5 mg tablet RxNorm: 387846 1 Tablet(s) PO BID 2018 Inactive gabapentin 300 mg capsule RxNorm: 570601 1 Capsule(s) PO TID as needed 2018 Inactive hydrochlorothiazide 12.5 mg tablet RxNorm: 496178 1 Tablet(s) PO QAM 2018 Inactive ranitidine 150 mg tablet RxNorm: 595766 1 Tablet(s) PO BID 2018 Inactive Macrobid 100 mg capsule RxNorm: 684333 1 Capsule(s) PO Q12H 018 2017 Inactive Singulair 10 mg tablet RxNorm: 966944 1 Tablet(s) PO daily 018 2018 Inactive Ventolin HFA 90 mcg/actuation aerosol inhaler RxNorm: 2990629 2 Puff(s) INH QID 018 2018 Inactive Singulair 10 mg tablet RxNorm: 339681 1 Tablet(s) PO daily 018 2017 Inactive buspirone 7.5 mg tablet RxNorm: 536663 1 Tablet(s) PO BID 018 2017 Inactive Prozac 10 mg capsule RxNorm: 891337 1 Capsule(s) PO daily 018 2017 Inactive diclofenac sodium 75 mg tablet,delayed release RxNorm: 368406 1 Tablet(s) PO BID 018 2017 Inactive lisinopril 2.5 mg tablet RxNorm: 541221 1 Tablet(s) PO daily 018 2017 Inactive [facility] Pediatric Sinus Rinse Refill packet RxNorm: 1 Unit Dose NASAL PRN 018 2021 Inactive metoprolol succinate ER 50 mg tablet,extended release 24 hr RxNorm: 382097 1 Tablet(s) PO daily 018 2017 Inactive levothyroxine 50 mcg tablet RxNorm: 256163 1 Tablet(s) PO daily 018 2017 Inactive TRUEplus Lancets 30 gauge RxNorm: 1 Lancets Miscellaneous QAM 018 2017 Inactive 100/box Ventolin HFA 90 mcg/actuation aerosol inhaler RxNorm: 933793 2 Puff(s) INH QID 018 2017 Inactive Aleve 220 mg capsule RxNorm: 3614104 1 Capsule(s) PO BID 018 2018 Inactive ranitidine 150 mg tablet RxNorm: 681519 1 Tablet(s) PO BID 018 2017 Inactive gabapentin 300 mg capsule RxNorm: 381064 1 Capsule(s) PO TID as needed 018 2017 Inactive atorvastatin 20 mg tablet RxNorm: 947929 1 Tablet(s) PO QHS 018 2017 Inactive True Metrix Glucose Test Strip RxNorm: 1 Test Strips Miscellaneous QA 018 2017 Inactive 50/container Calcium 600-D3 Plus 600 mg calcium-800 unit-50 mg tablet RxNorm: 1 Tablet(s) PO daily take an additonal tablet for itching. 018 2017 Inactive hydrochlorothiazide 12.5 mg tablet RxNorm: 829784 1 Tablet(s) PO QAM 018 2017 Inactive Flintstones Complete (iron) 18 mg iron chewable tablet RxNorm: 1 Tablet(s) PO daily 018 2017 Inactive True Metrix Glucose Meter RxNorm: miscellaneous 019 2018 Inactive sertraline 50 mg tablet RxNorm: 865408 1 Tablet(s) PO daily 020 2019 Inactive loperamide 2 mg tablet RxNorm: 941743 oral 019 2018 Inactive d-mannose oral powder RxNorm: PO 018 2021 Inactive Symbicort 160 mcg-4.5 mcg/actuation HFA aerosol inhaler RxNorm: 8559532 2 Puff(s) INH BID 019 2018 Inactive Medication Administered No Medication Administered data Procedures Procedure Codes Date Urinalysis, dip stick CPT-4: 55898 05/04/2023 Garner Fany Assessment CPT-4: DSWA 01/02 Fall Risk Assessment CPT-4: DFRA 01/27/2023 Hypertension CPT-4: HTN 01/27/2023 Patient Health Questionnaire CPT-4: DPHQ Pain Screening CPT-4: PAS 2022 Tobacco Assessment/Screening CPT-4: TCA Hypertension CPT-4: HTN 08/17/2022 Garner Fany Assessment CPT-4: DSWA 04/02 Patient Health [...] CPT-4: VACP Fall Risk Assessment SNOMED CT: 10047349 4 CPT-4: DFRA01/13/2021emmes Fany AssessmentCPT-4: DSWA12/17/2020Urinalysis, dip stickCPT-4: 216352009/24/2020Patient Health QuestionnaireCPT-4: DPHQ 08/19/2020ElectrocardiogramCPT-4: 2234091Tobacco Assessment/Screening CPT-4: TCA01/01/2020Fall Risk AssessmentSNOMED CT: 931785628 CPT-4: DFRA01/01/2020Functional AssessmentCPT-4: DFA01/01/2020Semmes Fany AssessmentCPT-4: DSWA11/28/2019Patient Health QuestionnaireCPT-4: DPHQ11/28/2019 Garner Fany AssessmentCPT-4: DSWA10/17/2019HypertensionCPT-4: HTN10/17/[address]: 6[address]646297 CPT-4: DFRA09/19/2019Functional AssessmentCPT-4: DFA111/20/2018Urinalysis, dip stickCPT-4: 5614365Tobacco Assessment/ScreeningCPT-4: TCA05/24/2019 Patient Health QuestionnaireCPT-4: DPHQ05/24/2019AHA/REBECCA Classification AssessmentCPT-4: DAHA04/25/2019Controlled Substance ReportCPT-4: CTRSU04/25/2019 Urinalysis, dip stickCPT-4: 357082203/28/2019Urinalysis, dip stickCPT-4: 26871 03/28/20199261E9S-YqzjbzgojxyudfnQFF-7: 38424YsajaqpV6W-AidawilevbfyybfDOZ-4: 73889 NeiklbnI5L-YlqtgpwmajfoizjYXC-7: 34814WyckpozQ3D-CfkeuawoslejuxuUPB-2: 89871 XjqohztP8T-ApcogrenictbzooFEV-6: 73191BfdieujW9E-FnrioertkhmeqznFEK-9: 40297 HsbjncgY4D-DiaazbrsnvsrzcoYXY-8: 51344YifvuacM3C-UjmoppflmslttgoXLK-8: 92920 FlxonmxP5E-AcucghsclitlqxiWFN-4: 55624SizktvbU2E-MteebcqrrbnyndsBCI-6: 69449 DcdckadB6F-NgruulhedoiellvWBT-1: 07602DcyvhfcM0W-LidqosszeqlargtPED-7: [address]: 684517284 CPT-4: Y27Zkvvznu Reason For Visit No Reason For Visit data Plan of Care Planned Activity Notes Codes Status Date Referral: Pending Gynecology Referral Informatio n Referral ProcessedReferral: Pending Pulmonology Referral InformationReferralProcessed Referral: Pending Psychiatry Referral InformationReferralInitiatedReferral: Pending Respiratory Services Referral InformationReferralInitiatedReferral: Pending Ophthalmology Referral InformationReferralInitiatedReferral: [facility] WPtel: [address] [place], [place] [id number] USWriter placed a call out to the patient to notify her that it has been recommended that she be seenby a urologist. Patient agreed to be seen, does not have a provider of choice and no transportationissues. Poolroom/Poolhall Manager faxed referral and clinical notes to [facility] in [place], [place] near the patient's home. Patient to [...] seen and prefers a provider in the [place] or [place] area. Poolroom/Poolhall Manager placed a call out to everyone listed in the area and the only location that was able to accept the patient's insurance was [facility] [place] [address] and spoke with Maylin. Maylin asked that the patient's referral, face sheet and visit notes be faxed to . Poolroom/Poolhall Manager faxed over requested documents. Patient appointment confirmation letter generated and mailed to her home address. Patient to call to schedule an appointment.ProcessedReferral: [facility] WPtel: [address] [place], [place] [id number] USPatient notified that it has been advised that she be seen by Neurology. Patient agreed to be seen and prefers to be seen by a provider in the [place], [place] area. Patient denies any concerns with transportation, and prefers to schedule her own appointment. Poolroom/Poolhall Manager placed a call out to [facility] and spoke [...]
--- OUTSIDE RECORDS SUMMARY | 2024-01-03 23:27 | XMS_ITS | CCD ---
Author Name Leena Culver NP Address [address] [place] [address] [place] [id number] Phone Organization [employer] 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 Name Role Phone Anna Culver NP Primary Care Provider Unav ailable Unavailable Chronic Care Management Unavaila ble Summary Purpose DataExchange Insurance Providers Payer name Policy type / Coverage type Covered constitution party ID Effective Begin Date Effective End Date SUKI MAYO [id number] Unknown Unknown Family history Mother Diagnosis Age [...] 05/31/2018 Education level Unknown Some High School 10th05/31/20187791DisvcdfpuwLcstldyIkpsuolekq25/29/2018Tobacco historySNOMED CT: [id number] never smoked or chewed txfzmpg2005/31/2018Alcohol historySNOMED CT: [id number] drinks htzfidm0005/31/2018Has the patient ever used illegal drugs? UnknownHas never used illegal drugs05/31/2018DNR Order/ Advanced Directive UnknownFull Code05/31/2018 Allergies, Adverse Reactions, Alerts Substance Reaction Codes Entered Date Inactivated Date Status OxyContin itch, RxNorm: 019734 01/13/2021 No Inactive Da te Active *No known food allergies Vpufnzg7209/06/2018No Inactive DateActiveMethylprednisolonehivesRxNorm: 6902 09/06/2018No Inactive DateActive Problems [...] examinationICD-10: Z01.810 ICD-9: V72.8106/InactiveHeadacheICD-10: R51 ICD-9: 784.001/10/2018InactiveOther shelter (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ICD-10: Z79.899 ICD-9: V58.6907/InactiveType 2 [...] Fill Instructions amoxicillin 500 mg tablet RxNorm: 041200 Take 1 Tablet(s) Oral two times a day 023 2022 Inactive omeprazole 40 mg capsule,delayed release RxNorm: 268114 Take 1 Capsule(s) Oral at bed time 023 2022 Inactive Easy Touch Alcohol Prep Pads RxNorm: 546388 USE EACH MORNING 023 2024 Active montelukast 10 mg tablet RxNorm: 848792 Take 1 Tablet(s) Oral every day 023 2022 Inactive gabapentin 300 mg capsule RxNorm: 867872 Take 1 Capsule(s) Oral three times a day 023 2022 Inactive metformin ER 500 mg 24 hr tablet,extended release RxNorm: 8086910 Take 1 Tablet(s) Oral every day with the evening meal 023 2022 Inactive famotidine 20 mg tablet RxNorm: 264602 Take 1 Tablet(s) Oral every morning 023 2022 Inactive levothyroxine 50 mcg tablet RxNorm: 786395 Take 1 Tablet(s) Oral every day 023 2023 [facility] Msg [facility]: Approval Requested hydrochlorothiazide 25 mg tablet RxNorm: 033748 Take 1 Tablet(s) Oral every day 023 2023 Active M[facility]: Approval Requested atorvastatin 20 mg tablet RxNorm: 041121 Take 1 Tablet(s) Oral every night at bedtime 023 2023 Active Macrobid 100 mg capsule RxNorm: 188492 1 Capsule(s) Oral every 12 hours with food 023 2022 Inactive omeprazole 40 mg capsule,delayed release RxNorm: 20021111 Take 1 Capsule(s) Oral every night at bedtime 023 2022 Inactive trazodone 50 mg tablet RxNorm: 283272 Administer 1 Tablet(s) Oral every night at bedtime 023 No Stop Date Active cholecalciferol (vitamin D3) 50 mcg (2,000 unit) tablet RxNorm: 498652 Take 1 Tablet(s) Oral every day 023 2023 Active Ozempic 1 mg/dose (4 mg/3 mL) subcutaneous pen injector RxNorm: 2813284 USE 1 UNIT DOSE SUBCUTANEOUSLY ON TUE OF EACH WEEK 023 2022 Inactive lisinopril 2.5 mg tablet RxNorm: 466185 Take 1 Tablet(s) Oral every day 023 2022 Inactive Msg From [facility]: Dr. Zapata Requested Ozempic 1 mg/dose (4 mg/3 mL) subcutaneous pen injector RxNorm: 7064484 USE 1 UNIT DOSE SUBCUTANEOUSLY ON TUE OF EACH WEEK 023 2022 Inactive omeprazole 40 mg capsule,delayed release RxNorm: 20021111 Take 1 Capsule(s) Oral every night at bedtime 023 2022 Inactive gabapentin 300 mg capsule RxNorm: 508549 Take 1 Capsule(s) Oral three times a day 023 2022 Inactive montelukast 10 mg tablet RxNorm: 171953 Take 1 Tablet(s) Oral every day 023 2022 Inactive omeprazole 20 mg capsule,delayed release RxNorm: 533743 Take 1 Capsule(s) Oral every evening 022 2022 Inactive Alcohol Prep Pads RxNorm: 031176 USE EACH MORNING 022 2021 Inactive E11.42 clotrimazole 1 % topical cream RxNorm: 607891 Apply 1 Application Topical two times a day as needed apply to affected area(s) twice daily until healed 022 2021 Inactive Victoza 2-Sebastián 0.6 mg/0.1 mL (18 mg/3 mL) subcutaneous pen injector RxNorm: 631192 Inject 0.6-1.8 Milligram(s) Subcutaneous once a week Inject 0.6mg/0.1ml week one, 1.2mg/0.2ml week two, 1.8/0.3ml weekly thereafter 022 2021 Inactive ibuprofen 800 mg tablet RxNorm: 654205 Take 1 Tablet(s) Oral Q8H as needed for pain take with food No Stop Date Active Ozempic 1 mg/dose (4 mg/3 mL) subcutaneous pen injector RxNorm: 8276007 Take 1 Unit Dose Subcutaneous QWeek Tuesday2021 Inactive lisinopril 2.5 mg tablet RxNorm: 711929 Take 1 Tablet(s) Oral every day 2021 Inactive lisinopril 2.5 mg tablet RxNorm: 605815 Take 1 Tablet(s) Oral every day 2022 Inactive hydrochlorothiazide 25 mg tablet RxNorm: 936311 Take 1 Tablet(s) Oral every day 2021 Inactive Ozempic 1 mg/dose (4 mg/3 mL) subcutaneous pen injector RxNorm: 1704973 Take 1 Unit Dose Subcutaneous QWeek 2021 Inactive famotidine 20 mg tablet RxNorm: 120203 Take 1 Tablet(s) Oral every morning 2021 Inactive levothyroxine 50 mcg tablet RxNorm: 010616 Take 1 Tablet(s) Oral every day 2021 Inactive atorvastatin 20 mg tablet RxNorm: 123320 Take 1 Tablet(s) Oral every night at bedtime 2021 Inactive Cleocin T 1 % lotion RxNorm: 381537 Take 2 Gram(s) Topical every day 022 2021 Inactive Cleocin T 1 % lotion RxNorm: 942667 Take 2 Gram(s) Topical every day 022 2021 Inactive Ozempic 1 mg/dose (4 mg/3 mL) subcutaneous pen injector RxNorm: 5363927 Take 1 Unit Dose Subcutaneous QWeek 022 2021 Inactive Ozempic 0.25 mg or 0.5 mg (2 mg/1.5 mL) subcutaneous pen injector RxNorm: 7692528 INJECT 0.5 MGS SUBCUTANEOUSLY EVERY WEEK 2021 Inactive omeprazole 20 mg capsule,delayed release RxNorm: 450699 Take 1 Capsule(s) Oral every evening 022 2021 Inactive levothyroxine 50 mcg tablet RxNorm: 657753 Take 1 Tablet(s) Oral every day 022 2021 Inactive atorvastatin 20 mg tablet RxNorm: 898572 Take 1 Tablet(s) Oral every night at bedtime 2021 Inactive This refill negates all other refills of this medication lisinopril 2.5 mg tablet RxNorm: 264025 Take 1 Tablet(s) Oral every day 2021 Inactive gabapentin 300 mg capsule RxNorm: 575153 Take 1 Capsule(s) Oral three times a day 022 2021 Inactive montelukast 10 mg tablet RxNorm: 079076 Take 1 Tablet(s) Oral every day 2021 Inactive Myrbetriq 50 mg tablet,extended release RxNorm: 0212597 1 Tablet(s) Oral every day No Stop Date Active cholecalciferol (vitamin D3) 50 mcg (2,000 unit) tablet RxNorm: 606776 Take 1 Tablet(s) Oral every day 022 2022 Inactive Ozempic 0.25 mg or 0.5 mg (2 mg/1.5 mL) subcutaneous pen injector RxNorm: 1447871 inject 0.5 milligrams subcutaneously every week 022 2021 Inactive Ozempic 0.25 mg or 0.5 mg (2 mg/1.5 mL) subcutaneous pen injector RxNorm: 1384877 Take 0.5 Capsule(s) Injection once a week 2021 Inactive omeprazole 20 mg capsule,delayed release RxNorm: 419066 Take 1 Capsule(s) Oral every evening 2020 Inactive Ozempic 0.25 mg or 0.5 mg (2 mg/1.5 mL) subcutaneous pen injector RxNorm: 6059885 Take 0.25 Milligram(s) Subcutaneous once a week 2021 Inactive Easy Touch Alcohol Prep Pads RxNorm: 947128 USE DIRECTED EACH MORNING 2021 Inactive Probiotic 10 billion cell capsule RxNorm: 5823901 Take 1 Capsule(s) Oral every day 2021 Inactive levothyroxine 50 mcg tablet RxNorm: 907563 Take 1 Tablet(s) Oral every day 2020 Inactive Acid Appointment Scheduler (famotidine) 20 mg tablet RxNorm: 897076 Take 1 Tablet(s) Oral every morning 2020 Inactive Heartburn Relief (famotidine) 10 mg tablet RxNorm: 505799 Take 1 Tablet(s) Oral QAM 2020 Inactive levothyroxine 50 mcg tablet RxNorm: 512288 Take 1 Tablet(s) Oral QD 2020 Inactive Singulair 10 mg tablet RxNorm: 210457 TAKE (1) TABLET BY MOUTH DAILY 2020 Inactive metformin 1,000 mg tablet RxNorm: 102602 1 Tablet(s) Oral two times a day 2021 Inactive lisinopril 2.5 mg tablet RxNorm: 176101 Take 1 Tablet(s) Oral every day 2020 Inactive hydrochlorothiazide 25 mg tablet RxNorm: 174306 Take 1 Tablet(s) Oral every day 021 2020 Inactive ondansetron 4 mg disintegrating tablet RxNorm: 369967 1 Tablet(s) Oral two times a day 021 2020 Inactive Sudafed 12 Hour 120 mg tablet,extended release RxNorm: 9923481 TAKE 1 TABLET BY MOUTH EVERY 12 HOURS NEEDED 021 2021 Inactive Heartburn Relief (famotidine) 10 mg tablet RxNorm: 067647 Take 1 Tablet(s) Oral every morning 021 2020 Inactive omeprazole 20 mg capsule,delayed release RxNorm: 961067 1 Capsule(s) Oral every evening 021 2020 Inactive sertraline 100 mg tablet RxNorm: 222580 2 Tablet(s) Oral every day 021 2020 Inactive levothyroxine 50 mcg tablet RxNorm: 643120 TAKE (1) TABLET BY MOUTH DAILY 2020 Inactive metformin 500 mg tablet RxNorm: 934184 1 Tablet(s) Oral two times a day take with 500mg to equal 1000mg 021 2020 Inactive gabapentin 300 mg capsule RxNorm: 400932 TAKE 1 CAPSULE BY MOUTH THREE TIMES A DAY 021 2020 Inactive lisinopril 2.5 mg tablet RxNorm: 383189 TAKE 1 TABLET BY MOUTH DAILY 021 2020 Inactive gabapentin 300 mg capsule RxNorm: 862163 TAKE 1 CAPSULE BY MOUTH THREE TIMES A DAY 021 2020 Inactive Singulair 10 mg tablet RxNorm: 722767 TAKE (1) TABLET BY MOUTH DAILY 021 2020 Inactive metformin 1,000 mg tablet RxNorm: 490706 1 Tablet(s) Oral two times a day 021 2020 Inactive atorvastatin 40 mg tablet RxNorm: 463894 1 Tablet(s) Oral every day 021 2020 Inactive omeprazole 20 mg capsule,delayed release RxNorm: 722874 1 Capsule(s) Oral every evening 021 2020 Inactive famotidine 10 mg tablet RxNorm: 352995 1 Tablet(s) Oral every morning 2020 Inactive Alcohol Prep Pads RxNorm: 723172 USE EACH MORNING 021 2020 Inactive omeprazole 20 mg capsule,delayed release RxNorm: 705232 1 Capsule(s) Oral two times a day 2021 Inactive omeprazole 20 mg capsule,delayed release RxNorm: 167898 TAKE 1 CAPSULE BY MOUTH EVERY DAY 2021 Inactive Macrobid 100 mg capsule RxNorm: 927137 1 Capsule(s) Oral every 12 hours with food 2020 Inactive omeprazole 20 mg capsule,delayed release RxNorm: 211551 1 Capsule(s) Oral two times a day 2021 Inactive metformin 1,000 mg tablet RxNorm: 007209 1 Tablet(s) Oral two times a day 2020 Inactive start on September 11, 2020 metformin 500 mg tablet RxNorm: 931125 1 Tablet(s) Oral two times a day take with 500mg to equal 1000mg 2019 Inactive gabapentin 300 mg capsule RxNorm: 119178 TAKE 1 CAPSULE BY MOUTH THREE TIMES DAILY 020 2020 Inactive cetirizine 10 mg tablet RxNorm: 5059226 TAKE (1) TABLET BY MOUTH DAILY 2020 Inactive metformin 500 mg tablet RxNorm: 409395 1 Tablet(s) Oral two times a day 2019 Inactive loperamide 2 mg tablet RxNorm: 493182 1 Tablet(s) Oral as needed take one tablet after each loose stool, maximum of 8 tablets in 24 hours 2021 Inactive Sudafed 12 Hour 120 mg tablet,extended release RxNorm: 7412056 TAKE 1 TABLET BY MOUTH EVERY 12 HOURS NEEDED 020 2019 Inactive hydrochlorothiazide 25 mg tablet RxNorm: 305813 TAKE (1) TABLET BY MOUTH EVERY DAY 2019 Inactive omeprazole 20 mg capsule,delayed release RxNorm: 505582 TAKE 1 CAPSULE BY MOUTH EVERY DAY 020 2020 Inactive metformin 500 mg tablet RxNorm: 543134 1 Tablet(s) Oral every day 020 2019 Inactive True Metrix Glucose Test Strip RxNorm: 1 Test Strips Miscellaneous two times a day as needed No Stop Date Active metformin 500 mg tablet RxNorm: 444207 1 Tablet(s) Oral every day 020 2019 Inactive diclofenac sodium 75 mg tablet,delayed release RxNorm: 751176 1 Tablet(s) PO BID 2021 Inactive This refill negates all other refills of this medication Sudafed 12 Hour 120 mg tablet,extended release RxNorm: 2477053 TAKE 1 TABLET BY MOUTH EVERY 12 HOURS NEEDED 020 2019 Inactive True Metrix Glucose Test Strip RxNorm: 1 Test Strips Miscellaneous every morning 020 2019 Inactive 100/container True Metrix Glucose Test Strip RxNorm: 1 Test Strips Miscellaneous QAM 020 2019 Inactive 100/container loperamide 2 mg tablet RxNorm: 608606 1 Tablet(s) Oral as needed take one tablet after each loose stool, maximum of 8 tablets in 24 hours 020 2019 Inactive cetirizine 10 mg tablet RxNorm: 6464924 1 Tablet(s) PO daily 020 2019 Inactive loperamide 2 mg tablet RxNorm: 621972 1 Tablet(s) Oral as needed take one tablet after each loose stool, maximum of 8 tablets in 24 hours 020 2019 Inactive quetiapine 100 mg tablet RxNorm: 016312 1 Tablet(s) Oral every night at bedtime 020 2019 Inactive levothyroxine 50 mcg tablet RxNorm: 379594 1 Tablet(s) PO daily 020 2020 Inactive gabapentin 300 mg capsule RxNorm: 214889 1 Capsule(s) PO TID 2019 Inactive levothyroxine 50 mcg tablet RxNorm: 699032 1 Tablet(s) PO daily 020 2019 Inactive lisinopril 2.5 mg tablet RxNorm: 505587 1 Tablet(s) PO daily 2020 Inactive gabapentin 300 mg capsule RxNorm: 833339 1 Capsule(s) PO TID 2019 Inactive cetirizine 10 mg tablet RxNorm: 6810455 1 Tablet(s) PO daily 2019 Inactive Singulair 10 mg tablet RxNorm: 906351 1 Tablet(s) PO daily 2020 Inactive gentamicin 0.3 % eye drops RxNorm: 595682 1 Drop(s) ophthalmic (eye) four times a day 2019 Inactive gentamicin 0.3 % eye drops RxNorm: 024038 1 Drop(s) ophthalmic (eye) four times a day 2019 Inactive gentamicin 0.3 % eye drops RxNorm: 670752 1 Drop(s) ophthalmic (eye) four times a day 2019 Inactive hydrochlorothiazide 25 mg tablet RxNorm: 057723 1 Tablet(s) Oral every day 2019 Inactive Sudafed 12 Hour 120 mg tablet,extended release RxNorm: 6077416 TAKE (1) TABLET BY MOUTH EVERY 12 HOURS NEEDED 2019 Inactive loperamide 2 mg tablet RxNorm: 341741 1 Tablet(s) Oral as needed take one tablet after each loose stool, maximum of 8 tablets in 24 hours 2019 Inactive loperamide 2 mg tablet RxNorm: 478905 1 Tablet(s) Oral as needed take one tablet after each loose stool, maximum of 8 tablets in 24 hours 020 2019 Inactive atorvastatin 40 mg tablet RxNorm: 457471 1 Tablet(s) Oral every day 2020 Inactive quetiapine 100 mg tablet RxNorm: 222215 1 Tablet(s) Oral every night at bedtime 2019 Inactive sertraline 100 mg tablet RxNorm: 833666 1 Tablet(s) Oral 020 2019 Inactive omeprazole 20 mg capsule,delayed release RxNorm: 110027 1 Capsule(s) Oral every day 020 2019 Inactive amoxicillin 250 mg capsule RxNorm: 028180 1 Capsule(s) Oral three times a day 020 2019 Inactive multivitamin with iron-mineral tablet RxNorm: 1 Tablet(s) Oral every day 020 2021 Inactive cetirizine 10 mg tablet RxNorm: 8444367 1 Tablet(s) PO daily 2019 Inactive This refill negates all other refills of this medication. Please do not auto refill Singulair 10 mg tablet RxNorm: 781529 1 Tablet(s) PO daily 2019 Inactive This refill negates all other refills of this medication gabapentin 300 mg capsule RxNorm: 283683 1 Capsule(s) PO TID 2019 Inactive lisinopril 2.5 mg tablet RxNorm: 364871 1 Tablet(s) PO daily 2019 Inactive levothyroxine 50 mcg tablet RxNorm: 625914 1 Tablet(s) PO daily 2019 Inactive This refill negates all other refills of this medication hydrochlorothiazide 25 mg tablet RxNorm: 133231 1 Tablet(s) Oral every day 2019 Inactive fenugreek seed extract 500 mg capsule RxNorm: 1 Capsule(s) Oral three times a day 020 2021 Inactive Alcohol Prep Pads RxNorm: 536373 1 Patch TOP QAM 020 2020 Inactive loperamide 2 mg tablet RxNorm: 147084 1 Tablet(s) Oral as needed take one [...] 2019 Inactive hydrochlorothiazide 25 mg tablet RxNorm: 109357 1 Tablet(s) Oral every day 2019 Inactive Sudafed 12 Hour 120 mg tablet,extended release RxNorm: 2725568 1 Tablet(s) Oral every 12 hours as needed 2018 Inactive omeprazole 20 mg capsule,delayed release RxNorm: 083729 1 Capsule(s) Oral every day 2019 Inactive Sudafed 12 Hour 120 mg tablet,extended release RxNorm: 6577258 1 Tablet(s) Oral every 12 hours as needed 2018 Inactive pantoprazole 40 mg tablet,delayed release RxNorm: 010650 1 Tablet(s) Oral every day 2018 Inactive discontinue any other H2Blkr. and PPI albuterol sulfate 2.5 mg/3 mL (0.083 %) solution for nebulization RxNorm: 811670 1 Vial Inhalation every four hours as needed as needed for dyspnea 2019 Inactive 60/box. This refill negates all other refills of this medication. Please do not fill early. Please do not auto refill. Symbicort 160 mcg-4.5 mcg/actuation HFA aerosol inhaler RxNorm: 8798561 2 Puff(s) INH BID No Stop Date Active Alcohol Prep Pads RxNorm: 399291 1 Patch TOP QAM 2019 Inactive Ventolin HFA 90 mcg/actuation aerosol inhaler RxNorm: 266911 2 Puff(s) INH QID 019 2019 Inactive Please do not fill early. Please do not auto refill. This refill negates all other refills of this medication True Metrix Glucose Test Strip RxNorm: 1 Test Strips Miscellaneous QAM 019 2019 Inactive 100/container atorvastatin 40 mg tablet RxNorm: 835193 1 Tablet(s) Oral every day 019 2019 Inactive buspirone 7.5 mg tablet RxNorm: 565055 1 Tablet(s) PO BID 019 2020 Inactive This refill negates all other refills of this medication hydrochlorothiazide 12.5 mg tablet RxNorm: 727890 1 Tablet(s) PO QAM 019 2019 Inactive levmetamfetamine 50 mg nasal inhaler RxNorm: 1 Unit(s) NASAL Q3-4H Do not use more than every 3 hours or 8 times/24hours 019 2021 Inactive Please do not auto refill. This refill negates all other refills of this medication Ventolin HFA 90 mcg/actuation aerosol inhaler RxNorm: 738823 2 Puff(s) INH QID 019 2018 Inactive Please do not fill early. Please do not auto refill. This refill negates all other refills of this medication Singulair 10 mg tablet RxNorm: 054548 1 Tablet(s) PO daily 019 2019 Inactive This refill negates all other refills of this medication cetirizine 10 mg tablet RxNorm: 8250305 1 Tablet(s) PO daily 019 2019 Inactive This refill negates all other refills of this medication. Please do not auto refill levothyroxine 50 mcg tablet RxNorm: 381295 1 Tablet(s) PO daily 019 2019 Inactive This refill negates all other refills of this medication diclofenac sodium 75 mg tablet,delayed release RxNorm: 749209 1 Tablet(s) PO BID 019 2019 Inactive This refill negates all other refills of this medication ranitidine 150 mg tablet RxNorm: 654844 1 Tablet(s) PO BID 019 2018 Inactive This refill negates all other refills of this medication Calcium 600-D3 Plus (mag-zinc) 600 mg calcium-800 unit-50 mg tablet RxNorm: 1 Tablet(s) PO daily take an additonal tablet for itching. 019 2018 Inactive This refill negates all other refills of this medication albuterol sulfate 2.5 mg/3 mL (0.083 %) solution for nebulization RxNorm: 517825 1 Vial INH QID 2018 Inactive 60/box. This refill negates all other refills of this medication. Please do not fill early. Please do not auto refill. lisinopril 2.5 mg tablet RxNorm: 836649 1 Tablet(s) PO daily 019 2019 Inactive gabapentin 300 mg capsule RxNorm: 514738 1 Capsule(s) PO TID 019 2019 Inactive atorvastatin 20 mg tablet RxNorm: 152638 1 Tablet(s) PO QHS 2018 Inactive This refill negates all other refills of this medication TRUEplus Lancets 30 gauge RxNorm: 1 Lancets Miscellaneous QAM 2018 Inactive 100/box gabapentin 300 mg capsule RxNorm: 563704 1 Capsule(s) PO TID 019 2018 Inactive Flintstones Complete (iron) 18 mg iron chewable tablet RxNorm: 1 Tablet(s) PO daily 019 2021 Inactive This refill negates all other refills of this medication gabapentin 300 mg capsule RxNorm: 612414 1 Capsule(s) PO TID as needed 019 2018 Inactive True Metrix Glucose Test Strip RxNorm: 1 Test Strips Miscellaneous QAM 019 2018 Inactive 100/container Alcohol Prep Pads RxNorm: 911330 1 Patch TOP QAM 019 2018 Inactive TRUEplus Lancets 30 gauge RxNorm: 1 Lancets Miscellaneous QAM 019 2018 Inactive 100/box lisinopril 2.5 mg tablet RxNorm: 484633 1 Tablet(s) PO daily 019 2018 Inactive ranitidine 150 mg tablet RxNorm: 278722 1 Tablet(s) PO BID 019 2018 Inactive This refill negates all other refills of this medication albuterol sulfate 2.5 mg/3 mL (0.083 %) solution for nebulization RxNorm: 748454 1 Vial INH QID 019 2018 Inactive [...] this medication gabapentin 300 mg capsule RxNorm: 918156 1 Capsule(s) PO TID as needed 019 2018 Inactive atorvastatin 20 mg tablet RxNorm: 326566 1 Tablet(s) PO QHS 019 2018 Inactive This refill negates all other refills of this medication trazodone 50 mg tablet RxNorm: 323512 1 Tablet(s) PO QHS 019 2018 Inactive This refill negates all other refills of this medication Ventolin HFA 90 mcg/actuation aerosol inhaler RxNorm: 677217 2 Puff(s) INH QID 019 2018 Inactive Please do not fill early. Please do not auto refill. This refill negates all other refills of this medication Calcium 600-D3 Plus 600 mg calcium-800 unit-50 mg tablet RxNorm: 1 Tablet(s) PO daily take an additonal tablet for itching. 019 2018 Inactive This refill negates all other refills of this medication Singulair 10 mg tablet RxNorm: 329584 1 Tablet(s) PO daily 019 2018 Inactive This refill negates all other refills of this medication buspirone 7.5 mg tablet RxNorm: 934088 1 Tablet(s) PO BID 019 2018 Inactive This refill negates all other refills of this medication diclofenac sodium 75 mg tablet,delayed release RxNorm: 692095 1 Tablet(s) PO BID 019 2018 Inactive This refill negates all other refills of this medication hydrochlorothiazide 12.5 mg tablet RxNorm: 978437 1 Tablet(s) PO QAM 019 2018 Inactive metoprolol succinate ER 50 mg tablet,extended release 24 hr RxNorm: 340821 1 Tablet(s) PO daily 019 2018 Inactive This refill negates all other refills of this medication levothyroxine 50 mcg tablet RxNorm: 782052 1 Tablet(s) PO daily 019 2018 Inactive This refill negates all other refills of this medication cetirizine 10 mg tablet RxNorm: 9384002 1 Tablet(s) PO daily 019 2018 Inactive This refill negates all other refills of this medication. Please do not auto refill Flintstones Complete (iron) 18 mg iron chewable tablet RxNorm: 1 Tablet(s) PO daily 019 2018 Inactive This refill negates all other refills of this medication buspirone 7.5 mg tablet RxNorm: 228029 1 Tablet(s) PO BID 019 2018 Inactive cetirizine 10 mg tablet RxNorm: 6016634 1 Tablet(s) PO daily 018 2018 Inactive Guaiasorb DM 10 mg-100 mg/5 mL oral liquid RxNorm: 193893 10 Milliliter(s) PO As needed every 4 hr 2018 Inactive Vicks Vaporub 4.7 %-1.2 %-2.6 % topical ointment RxNorm: 4988502 1 Application TOP TID 2018 Inactive levmetamfetamine 50 mg nasal inhaler RxNorm: 1 Unit(s) NASAL Q3-4H 2017 Inactive sertraline 50 mg tablet RxNorm: 501000 1 Tablet(s) PO daily 2018 Inactive Please note dose trazodone 50 mg tablet RxNorm: 014708 1 Tablet(s) PO QHS 2018 Inactive sertraline 50 mg tablet RxNorm: 806516 1 Tablet(s) PO daily 2017 Inactive amoxicillin 500 mg tablet RxNorm: 167947 1 Tablet(s) PO Q12H 2017 Inactive albuterol sulfate 2.5 mg/3 mL (0.083 %) solution for nebulization RxNorm: 973519 1 Vial INH QID 2018 Inactive 60/box. Please do not fill early. Please do not auto refill. Prozac 10 mg capsule RxNorm: 288692 1 Capsule(s) PO daily 2017 Inactive buspirone 7.5 mg tablet RxNorm: 487247 1 Tablet(s) PO BID 2018 Inactive gabapentin 300 mg capsule RxNorm: 473681 1 Capsule(s) PO TID as needed 2018 Inactive hydrochlorothiazide 12.5 mg tablet RxNorm: 095231 1 Tablet(s) PO QAM 2018 Inactive ranitidine 150 mg tablet RxNorm: 627991 1 Tablet(s) PO BID 2018 Inactive Macrobid 100 mg capsule RxNorm: 001770 1 Capsule(s) PO Q12H 018 2017 Inactive Singulair 10 mg tablet RxNorm: 556922 1 Tablet(s) PO daily 018 2018 Inactive Ventolin HFA 90 mcg/actuation aerosol inhaler RxNorm: 0975654 2 Puff(s) INH QID 018 2018 Inactive Singulair 10 mg tablet RxNorm: 911789 1 Tablet(s) PO daily 018 2017 Inactive buspirone 7.5 mg tablet RxNorm: 402349 1 Tablet(s) PO BID 018 2017 Inactive Prozac 10 mg capsule RxNorm: 485372 1 Capsule(s) PO daily 018 2017 Inactive diclofenac sodium 75 mg tablet,delayed release RxNorm: 527087 1 Tablet(s) PO BID 018 2017 Inactive lisinopril 2.5 mg tablet RxNorm: 934062 1 Tablet(s) PO daily 018 2017 Inactive Neilmed Pediatric Sinus Rinse Refill packet RxNorm: 1 Unit Dose NASAL PRN 018 2021 Inactive metoprolol succinate ER 50 mg tablet,extended release 24 hr RxNorm: 439327 1 Tablet(s) PO daily 018 2017 Inactive levothyroxine 50 mcg tablet RxNorm: 900747 1 Tablet(s) PO daily 018 2017 Inactive TRUEplus Lancets 30 gauge RxNorm: 1 Lancets Miscellaneous QAM 018 2017 Inactive 100/box Ventolin HFA 90 mcg/actuation aerosol inhaler RxNorm: 985545 2 Puff(s) INH QID 018 2017 Inactive Aleve 220 mg capsule RxNorm: 6108145 1 Capsule(s) PO BID 018 2018 Inactive ranitidine 150 mg tablet RxNorm: 962219 1 Tablet(s) PO BID 018 2017 Inactive gabapentin 300 mg capsule RxNorm: 641306 1 Capsule(s) PO TID as needed 018 2017 Inactive atorvastatin 20 mg tablet RxNorm: 628914 1 Tablet(s) PO QHS 018 2017 Inactive True Metrix Glucose Test Strip RxNorm: 1 Test Strips Miscellaneous QAM 018 2017 Inactive 50/container Calcium 600-D3 Plus 600 mg calcium-800 unit-50 mg tablet RxNorm: 1 Tablet(s) PO daily take an additonal tablet for itching. 018 2017 Inactive hydrochlorothiazide 12.5 mg tablet RxNorm: 505309 1 Tablet(s) PO QAM 018 2017 Inactive Flintstones Complete (iron) 18 mg iron chewable tablet RxNorm: 1 Tablet(s) PO daily 018 2017 Inactive True Metrix Glucose Meter RxNorm: miscellaneous 019 2018 Inactive sertraline 50 mg tablet RxNorm: 128231 1 Tablet(s) PO daily 020 2019 Inactive loperamide 2 mg tablet RxNorm: 228695 oral 019 2018 Inactive d-mannose oral powder RxNorm: PO 018 2021 Inactive Symbicort 160 mcg-4.5 mcg/actuation HFA aerosol inhaler RxNorm: 8674085 2 Puff(s) INH BID 019 2018 Inactive Medication Administered No Medication Administered data Procedures Procedure Codes Date Urinalysis, dip stick CPT-4: 00708 05/04/2023 [place] Fany Assessment CPT-4: DSWA 01/02 Fall Risk Assessment CPT-4: DFRA 01/27/2023 Hypertension CPT-4: HTN 01/27/2023 Patient Health Questionnaire CPT-4: DPHQ Pain Screening CPT-4: PAS 2022 Tobacco Assessment/Screening CPT-4: TCA Hypertension CPT-4: HTN 08/17/2022 [place] Fany Assessment CPT-4: DSWA 04/02 Patient Health [...] Care Planning CPT-4: VACP [facility] 87870740 4 CPT-4: DFRA01/13/2021emmes Fany AssessmentCPT-4: DSWA12/17/2020Urinalysis, dip stickCPT-4: 431106209/24/2020Patient Health QuestionnaireCPT-4: DPHQ 08/19/2020ElectrocardiogramCPT-4: 855096205/14/2020Tobacco Assessment/Screening CPT-4: TCA01/01/2020Fall Risk AssessmentSNOMED CT: 226008585 CPT-4: DFRA01/01/2020Functional AssessmentCPT-4: DFA01/01/2020Semmes Fany AssessmentCPT-4: DSWA11/28/2019Patient Health QuestionnaireCPT-4: DPHQ11/28/2019 [place] Fany AssessmentCPT-4: DSWA10/17/2019HypertensionCPT-4: HTN10/17/[address]: 363738989 CPT-4: DFRA09/19/2019Functional AssessmentCPT-4: DFA111/20/2018Urinalysis, dip stickCPT-4: 5852567Tobacco Assessment/ScreeningCPT-4: TCA05/24/2019 Patient Health QuestionnaireCPT-4: DPHQ05/24/2019AHA/REBECCA Classification AssessmentCPT-4: DAHA04/25/2019Controlled Substance ReportCPT-4: CTRSU04/25/2019 Urinalysis, dip stickCPT-4: 7554396/26/2019Urinalysis, dip stickCPT-4: 31083 03/28/20190457K2L-HyzrkgqbgupmmhbEHM-2: 21136UpwpcekF2U-TfwzhrsotpftilrKXV-2: 95278 KoxwwmtF1D-QlircwapifeqvytYJD-7: 83760YqchbrhM0W-MajcmraieqeurstARP-5: 94732 GxtzpgvD2U-OfqyvdhogujrrqgJVZ-7: 33077ZydamlgQ0E-TpbfpexmmpijqbqAHO-3: 14210 CxyqnouO9G-UwepsjsupiralzbJRM-9: 23513AyegqxhA0D-ZhlrkeugappxfcpYXH-8: 96590 MljqdykY6E-HabxgctjpfyymgnDAF-3: 12739MhnknkyZ2X-UqmgzcqeegodjxfDSY-4: 45091 MmrnkbgR9U-GqkqqwkwbphmbupBQC-8: 84629YulaybyR8L-BdfhyzwuvfbnghgQZE-0: [address]: 986339268 CPT-4: A90Aewaeob Reason For Visit No Reason For Visit data Plan of Care Planned Activity Notes Codes Status Date Patient Education: Patient Medication Summary Qywwstymi46/27/2023ppointment: Anna Culver WPtel: [address] [place] [address] [id number]: Anna Culver WPtel: [address] [place] [address] [id number]: Anna Culver WPtel: [address] [place] [address] [id number]: Anna Culver WPtel: [address] [place] [address] [id number]: Anna Culver WPtel: [id number] [place] [address] [id number]/17/2021ppointment: Anna Culver WPtel: [phone] [place] [address] [id number]/ppointment: Chivo Bishop WPtel: [address] [place] [address] [id number]: Chivo Bishop WPtel: [address] [place] [address] [id number]: Mikey Nair WPtel: [address] [facility] [id number]: Chivo Bishop WPtel: [address] [place] [address] [id number]: Chivo Bishop WPtel: [address] [place] [address] [id number]: Chivo Bishop WPtel: [address] [place] [address] USETV111/11/2020ppointment: Chivo Bishop WPtel: [address] [place] [address] USETV110/13/2020ppointment: Chivo Bishop WPtel: [address] [place] [address] USETV1ppointment: Chivo Bishop WPtel: [address] [place] [address] UCABLQ8206/10/2021ppointment: Anna Culver WPtel: [address] [place] [address] USETV06/02/2021ppointment: Chivo Bishop WPtel: [address] [place] [address] USETV05/20/2021ppointment: Anna Culver WPtel: [address] [facility] [address] [place] [address] USETV04/28/2021ppointment: Chivo Bishop WPtel: [phone] [place] [address] [place] [address] USETV04/15/2021ppointment: Anna Culver WPtel: [phone] [place] [address] [id number]: Anna Culver WPtel: [phone] [place] [address] USETV03/24/2021ppointment: Anna Culver WPtel: [phone] [place] [address] USETV03/13/2021ppointment: Anna Culver WPtel: [address] [place] [address] [id number]: Chivo Bishop WPtel: [address] [place] [address] [id number]: Anna Culver WPtel: [address] [place] [address] USETV01/13/2021ppointment: Anna Culver WPtel: [address] [place] [address] [id number]: Chivo Bishop WPtel: [phone] [place] [address] USETV11/28/2020ppointment: Anna Culver WPtel: [phone] [place] [address] USETV11/24/2020ppointment: Anna Culver WPtel: [address] [facility] [address] [place] [address] [id number]: Anna Culver WPtel: [address] [place] [address] [address] [place] [address] UZA3336611/25/2019Appointment: Anna Culver WPtel: [phone] [place] [address] [address] [place] [address] USETV110/26/2019Appointment: Anna Culver WPtel: [address] [place] [address] [address] [place] [address] USETV110/19/2019Appointment: Anna Culver WPtel: [phone] [place] [address] [place] [address] USETV1Appointment: Anna Culver WPtel: [phone] [place] [address] USETV1Appointment: Gianna Birmingham MCt: [address] [facility] [address] [id number] IRFBRF1207/02/2020Appointment: Anna Culver WPtel: [phone] [place] [address] [id number]: Anna Culver WPtel: [address] [place] [address] [place] [address] [id number]: Anna Culver WPtel: [address] [place] [address] [place] [address] [id number]/Appointment: Anna Culver WPtel: [phone] [place] [address] [id number]: Anna Culver WPtel: [phone] [place] [address] [place] [address] [id number]/Appointment: Anna Culver WPtel: [address] [place] [address] [id number]: Anna Culver WPtel: [address] [place] [address] [id number]: Anna Culver WPtel: [address] [place] [address] [id number]: Anna Culver WPtel: [address] [place] [address] [id number]: Anna Culver WPtel: [address] [place] [address] [id number]: Sudha Hernadez WPtel: [facility] [place] [address] [id number]: Sudha Hernadez WPtel: [address] [facility] [place] [address] [id number]: Charlene Oropeza WPtel: [address] [facility] [place] [id number]: Arthur [id number]: Charlene Oropeza WPtel: [address] [facility] [place] [address] [id number]: Javy, Rasta WPtel: [address] [facility] [place] [address] [id number]: Haupricht, Rasta WPtel: [address] [facility] [place] [address] [id number]: Daltonricht Rasta WPtel: [address] [facility] [address] [id number]: Rasta Palafox WPtel: [address] [facility] [address] [id number]: Pending Gynecology Referral InformationReferral ProcessedReferral: Pending Pulmonology Referral InformationReferralProcessed Referral: Pending Psychiatry Referral InformationReferralInitiatedReferral: Pending Respiratory Services Referral InformationReferralInitiatedReferral: Pending Ophthalmology Referral InformationReferralInitiatedReferral: [facility] WPtel: [address] [place] [address] [address] [facility] USWriter placed a call out to the patient to notify her that it has been recommended that she be seenby a urologist. Patient agreed to be seen, does not have a provider of choice and no transportationissues. Government Affairs Director faxed referral and clinical notes to [facility] in [place], [place] near the patient's home. Patient to [...] seen and prefers a provider in the [place] or [facility]. Government Affairs Director placed a call out to everyone listed in the area and the only location that was able to accept the patient's insurance was [place] [address] [place] [address] and spoke with Maylin. Maylin asked that the patient's referral, face sheet and visit notes be faxed to . Government Affairs Director faxed over requested documents. Patient appointment confirmation letter generated and mailed to her home address. Patient to call to schedule an appointment.ProcessedReferral: [facility] WPtel: [address] [facility] [address] [id number] USPatient notified that it has been advised that she be seen by Neurology. Patient agreed to be seen and prefers to be seen by a provider in the [place], [place] area. Patient denies any concerns with transportation, and prefers to schedule her own appointment. Government Affairs Director placed a call out to [facility] and spoke with Neeraj P: who confirmed that their office is able to acceptnew patients and the patient's insurance. After confirming the providers fax number, health science writer faxed over the patient's referral, [...]
--- OUTSIDE RECORDS SUMMARY | 2024-01-03 23:27 | XMS_ITS | CCD ---
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 Whitesmith Name Role Phone Palomo KING, Anna Primary Care Provider Unav ailable Unavailable Chronic Care Management Unavaila ble Summary Purpose DataExchange Insurance Providers Payer name Policy type / Coverage type Covered constitution party ID Effective Begin Date Effective End Date [facility] [id number] Unknown Unknown Family history Mother Diagnosis Age [...] 05/31/2018 Education level Unknown Some High School 10th05/31/20187176YxvkellqupWyenhmdFthowkvhbe82/29/2018Tobacco historySNOMED CT: [id number] never smoked or chewed xjvsokk7005/31/2018Alcohol historySNOMED CT: 905394853Nqzzk drinks hwqjxcd3405/31/2018Has the patient ever used illegal drugs? UnknownHas never used illegal drugs05/31/2018DNR Order/ Advanced Directive UnknownFull Code05/31/2018 Allergies, Adverse Reactions, Alerts Substance Reaction Codes Entered Date Inactivated Date Status OxyContin itch, RxNorm: 240310 01/13/2021 No Inactive Da te Active *No known food allergies Kzedxnr2209/06/2018No Inactive DateActiveMethylprednisolonehivesRxNorm: 6902 09/06/2018No Inactive DateActive Problems Condition Codes Effective Dates Condition St atus Adult BMI 50.0-59.9 kg/sq m ICD-10: Z68. 43 ICD-9: V85.43005/30/2018ActiveHypertensive heart disease without heart failure ICD-10: I11.9 ICD-9: 402.9003/ctiveMajor depression, recurrentICD-10: F33.9 ICD-9: 296.3009/ctiveType 2 diabetes mellitus with peripheral neuropathy ICD-10: E11.42 ICD-9: 250.6002/ActiveAllergic rhinitisICD-10: J30.9 ICD-9: 477.903/ctiveHyperlipidemia, mixedICD-10: E78.2 ICD-9: 272.203/ctiveNonintractable epileptic seizures due to external causes, without status epilepticusICD-10: G40.509 ICD-9: 345.900/ctiveVitamin D deficiencyICD-10: E55.9 ICD-9: 268.90/ctiveUTI (urinary tract infection)ICD-10: N39.0 ICD-9: 599.006/ctiveInsomniaICD-10: G47.00 [...] examinationICD-10: Z01.810 ICD-9: V72.8106/InactiveHeadacheICD-10: R51 ICD-9: 784.001InactiveOther residential (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ICD-10: Z79.899 ICD-9: V58.6907/InactiveType 2 [...] Fill Instructions famotidine 20 mg tablet RxNorm: 616167 TAKE 1 TABLET BY MOUTH EACH MORNING 023 2023 Active Januvia 25 mg tablet RxNorm: 437567 Take 1 Tablet(s) Oral every day 023 2022 Inactive Ozempic 1 mg/dose (4 mg/3 mL) subcutaneous pen injector RxNorm: 7256486 INJECT 1 UNITS DOSE SUBCUTANEOUSLY ON TUESDAY OF EACH WEEK 023 2022 Inactive cetirizine 10 mg tablet RxNorm: 5779915 TAKE (1) TABLET BY MOUTH DAILY 023 2023 Inactive amoxicillin 500 mg tablet RxNorm: 903243 Take 1 Tablet(s) Oral two times a day 023 2022 Inactive omeprazole 40 mg capsule,delayed release RxNorm: 149997 Take 1 Capsule(s) Oral at bed time 023 2022 Inactive Easy Touch Alcohol Prep Pads RxNorm: 393828 USE EACH MORNING 023 2024 Active montelukast 10 mg tablet RxNorm: 416200 Take 1 Tablet(s) Oral every day 023 2022 Inactive gabapentin 300 mg capsule RxNorm: 728786 Take 1 Capsule(s) Oral three times a day 023 2022 Inactive metformin ER 500 mg 24 hr tablet,extended release RxNorm: 9144491 Take 1 Tablet(s) Oral every day with the evening meal 023 2022 Inactive famotidine 20 mg tablet RxNorm: 816389 Take 1 Tablet(s) Oral every morning 023 2022 Inactive levothyroxine 50 mcg tablet RxNorm: 082900 Take 1 Tablet(s) Oral every day 023 2023 Active Msg From [facility]: Dr. Zapata Requested hydrochlorothiazide 25 mg tablet RxNorm: 548948 Take 1 Tablet(s) Oral every day 023 2023 Active Msg From [facility]: Approval Requested atorvastatin 20 mg tablet RxNorm: 255276 Take 1 Tablet(s) Oral every night at bedtime 023 2023 Active Macrobid 100 mg capsule RxNorm: 162261 1 Capsule(s) Oral every 12 hours with food 023 2022 Inactive omeprazole 40 mg capsule,delayed release RxNorm: 20021111 Take 1 Capsule(s) Oral every night at bedtime 023 2022 Inactive trazodone 50 mg tablet RxNorm: 691982 Administer 1 Tablet(s) Oral every night at bedtime 023 No Stop Date Active cholecalciferol (vitamin D3) 50 mcg (2,000 unit) tablet RxNorm: 963911 Take 1 Tablet(s) Oral every day 023 2023 Active Ozempic 1 mg/dose (4 mg/3 mL) subcutaneous pen injector RxNorm: 0336549 USE 1 UNIT DOSE SUBCUTANEOUSLY ON TUE OF EACH WEEK 023 2022 Inactive lisinopril 2.5 mg tablet RxNorm: 770368 Take 1 Tablet(s) Oral every day 023 2022 Inactive Msg From [facility]: Approval Requested Ozempic 1 mg/dose (4 mg/3 mL) subcutaneous pen injector RxNorm: 8064618 USE 1 UNIT DOSE SUBCUTANEOUSLY ON TUE OF EACH WEEK 023 2022 Inactive omeprazole 40 mg capsule,delayed release RxNorm: 20021111 Take 1 Capsule(s) Oral every night at bedtime 023 2022 Inactive gabapentin 300 mg capsule RxNorm: 929205 Take 1 Capsule(s) Oral three times a day 023 2022 Inactive montelukast 10 mg tablet RxNorm: 182645 Take 1 Tablet(s) Oral every day 023 2022 Inactive omeprazole 20 mg capsule,delayed release RxNorm: 555627 Take 1 Capsule(s) Oral every evening 2022 Inactive Alcohol Prep Pads RxNorm: 399309 USE EACH MORNING 2021 Inactive E11.42 clotrimazole 1 % topical cream RxNorm: 069181 Apply 1 Application Topical two times a day as needed apply to affected area(s) twice daily until healed 2021 Inactive Victoza 2-Sebastián 0.6 mg/0.1 mL (18 mg/3 mL) subcutaneous pen injector RxNorm: 454686 Inject 0.6-1.8 Milligram(s) Subcutaneous once a week Inject 0.6mg/0.1ml week one, 1.2mg/0.2ml week two, 1.8/0.3ml weekly thereafter 2021 Inactive ibuprofen 800 mg tablet RxNorm: 179872 Take 1 Tablet(s) Oral Q8H as needed for pain take with food No Stop Date Active Ozempic 1 mg/dose (4 mg/3 mL) subcutaneous pen injector RxNorm: 4032186 Take 1 Unit Dose Subcutaneous QWeek Tuesday2021 Inactive lisinopril 2.5 mg tablet RxNorm: 497922 Take 1 Tablet(s) Oral every day 022 2021 Inactive lisinopril 2.5 mg tablet RxNorm: 300290 Take 1 Tablet(s) Oral every day 022 2022 Inactive hydrochlorothiazide 25 mg tablet RxNorm: 896690 Take 1 Tablet(s) Oral every day 022 2021 Inactive Ozempic 1 mg/dose (4 mg/3 mL) subcutaneous pen injector RxNorm: 4255111 Take 1 Unit Dose Subcutaneous QWeek 022 2021 Inactive famotidine 20 mg tablet RxNorm: 789728 Take 1 Tablet(s) Oral every morning 2021 Inactive levothyroxine 50 mcg tablet RxNorm: 765379 Take 1 Tablet(s) Oral every day 022 2021 Inactive atorvastatin 20 mg tablet RxNorm: 430690 Take 1 Tablet(s) Oral every night at bedtime 022 2021 Inactive Cleocin T 1 % lotion RxNorm: 129403 Take 2 Gram(s) Topical every day 022 2021 Inactive Cleocin T 1 % lotion RxNorm: 274705 Take 2 Gram(s) Topical every day 022 2021 Inactive Ozempic 1 mg/dose (4 mg/3 mL) subcutaneous pen injector RxNorm: 9125432 Take 1 Unit Dose Subcutaneous QWeek 022 2021 Inactive Ozempic 0.25 mg or 0.5 mg (2 mg/1.5 mL) subcutaneous pen injector RxNorm: 2116048 INJECT 0.5 MGS SUBCUTANEOUSLY EVERY WEEK 2021 Inactive omeprazole 20 mg capsule,delayed release RxNorm: 014097 Take 1 Capsule(s) Oral every evening 2021 Inactive levothyroxine 50 mcg tablet RxNorm: 524802 Take 1 Tablet(s) Oral every day 022 2021 Inactive atorvastatin 20 mg tablet RxNorm: 048275 Take 1 Tablet(s) Oral every night at bedtime 2021 Inactive This refill negates all other refills of this medication lisinopril 2.5 mg tablet RxNorm: 041589 Take 1 Tablet(s) Oral every day 022 2021 Inactive gabapentin 300 mg capsule RxNorm: 499355 Take 1 Capsule(s) Oral three times a day 022 2021 Inactive montelukast 10 mg tablet RxNorm: 464443 Take 1 Tablet(s) Oral every day 022 2021 Inactive Myrbetriq 50 mg tablet,extended release RxNorm: 9029598 1 Tablet(s) Oral every day No Stop Date Active cholecalciferol (vitamin D3) 50 mcg (2,000 unit) tablet RxNorm: 557815 Take 1 Tablet(s) Oral every day 022 2022 Inactive Ozempic 0.25 mg or 0.5 mg (2 mg/1.5 mL) subcutaneous pen injector RxNorm: 2317902 inject 0.5 milligrams subcutaneously every week 022 2021 Inactive Ozempic 0.25 mg or 0.5 mg (2 mg/1.5 mL) subcutaneous pen injector RxNorm: 5993091 Take 0.5 Capsule(s) Injection once a week 2021 Inactive omeprazole 20 mg capsule,delayed release RxNorm: 391202 Take 1 Capsule(s) Oral every evening 2020 Inactive Ozempic 0.25 mg or 0.5 mg (2 mg/1.5 mL) subcutaneous pen injector RxNorm: 1986334 Take 0.25 Milligram(s) Subcutaneous once a week 2021 Inactive Easy Touch Alcohol Prep Pads RxNorm: 010408 USE DIRECTED EACH MORNING 2021 Inactive Probiotic 10 billion cell capsule RxNorm: 0968989 Take 1 Capsule(s) Oral every day 2021 Inactive levothyroxine 50 mcg tablet RxNorm: 303894 Take 1 Tablet(s) Oral every day 2020 Inactive Acid Bundle Helper (famotidine) 20 mg tablet RxNorm: 814736 Take 1 Tablet(s) Oral every morning 2020 Inactive Heartburn Relief (famotidine) 10 mg tablet RxNorm: 319997 Take 1 Tablet(s) Oral QAM 2020 Inactive levothyroxine 50 mcg tablet RxNorm: 079814 Take 1 Tablet(s) Oral QD 2020 Inactive Singulair 10 mg tablet RxNorm: 056762 TAKE (1) TABLET BY MOUTH DAILY 2020 Inactive metformin 1,000 mg tablet RxNorm: 635159 1 Tablet(s) Oral two times a day 021 2021 Inactive lisinopril 2.5 mg tablet RxNorm: 150516 Take 1 Tablet(s) Oral every day 021 2020 Inactive hydrochlorothiazide 25 mg tablet RxNorm: 030402 Take 1 Tablet(s) Oral every day 021 2020 Inactive ondansetron 4 mg disintegrating tablet RxNorm: 259092 1 Tablet(s) Oral two times a day 021 2020 Inactive Sudafed 12 Hour 120 mg tablet,extended release RxNorm: 7550650 TAKE 1 TABLET BY MOUTH EVERY 12 HOURS NEEDED 2021 Inactive Heartburn Relief (famotidine) 10 mg tablet RxNorm: 805334 Take 1 Tablet(s) Oral every morning 021 2020 Inactive omeprazole 20 mg capsule,delayed release RxNorm: 461368 1 Capsule(s) Oral every evening 021 2020 Inactive sertraline 100 mg tablet RxNorm: 788644 2 Tablet(s) Oral every day 021 2020 Inactive levothyroxine 50 mcg tablet RxNorm: 271852 TAKE (1) TABLET BY MOUTH DAILY 021 2020 Inactive metformin 500 mg tablet RxNorm: 999265 1 Tablet(s) Oral two times a day take with 500mg to equal 1000mg 021 2020 Inactive gabapentin 300 mg capsule RxNorm: 430850 TAKE 1 CAPSULE BY MOUTH THREE TIMES A DAY 021 2020 Inactive lisinopril 2.5 mg tablet RxNorm: 359460 TAKE 1 TABLET BY MOUTH DAILY 021 2020 Inactive gabapentin 300 mg capsule RxNorm: 103900 TAKE 1 CAPSULE BY MOUTH THREE TIMES A DAY 021 2020 Inactive Singulair 10 mg tablet RxNorm: 910733 TAKE (1) TABLET BY MOUTH DAILY 021 2020 Inactive metformin 1,000 mg tablet RxNorm: 817954 1 Tablet(s) Oral two times a day 021 2020 Inactive atorvastatin 40 mg tablet RxNorm: 258962 1 Tablet(s) Oral every day 021 2020 Inactive omeprazole 20 mg capsule,delayed release RxNorm: 788497 1 Capsule(s) Oral every evening 2020 Inactive famotidine 10 mg tablet RxNorm: 225401 1 Tablet(s) Oral every morning 021 2020 Inactive Alcohol Prep Pads RxNorm: 092691 USE EACH MORNING 021 2020 Inactive omeprazole 20 mg capsule,delayed release RxNorm: 244569 1 Capsule(s) Oral two times a day 2021 Inactive omeprazole 20 mg capsule,delayed release RxNorm: 281644 TAKE 1 CAPSULE BY MOUTH EVERY DAY 2021 Inactive Macrobid 100 mg capsule RxNorm: 561923 1 Capsule(s) Oral every 12 hours with food 2020 Inactive omeprazole 20 mg capsule,delayed release RxNorm: 663364 1 Capsule(s) Oral two times a day 2021 Inactive metformin 1,000 mg tablet RxNorm: 991696 1 Tablet(s) Oral two times a day 2020 Inactive start on September 11, 2020 metformin 500 mg tablet RxNorm: 477665 1 Tablet(s) Oral two times a day take with 500mg to equal 1000mg 2019 Inactive gabapentin 300 mg capsule RxNorm: 457471 TAKE 1 CAPSULE BY MOUTH THREE TIMES DAILY 2020 Inactive cetirizine 10 mg tablet RxNorm: 5370933 TAKE (1) TABLET BY MOUTH DAILY 020 2020 Inactive metformin 500 mg tablet RxNorm: 551736 1 Tablet(s) Oral two times a day 2019 Inactive loperamide 2 mg tablet RxNorm: 546799 1 Tablet(s) Oral as needed take one tablet after each loose stool, maximum of 8 tablets in 24 hours 020 2021 Inactive Sudafed 12 Hour 120 mg tablet,extended release RxNorm: 1131430 TAKE 1 TABLET BY MOUTH EVERY 12 HOURS NEEDED 2019 Inactive hydrochlorothiazide 25 mg tablet RxNorm: 149473 TAKE (1) TABLET BY MOUTH EVERY DAY 020 2019 Inactive omeprazole 20 mg capsule,delayed release RxNorm: 937799 TAKE 1 CAPSULE BY MOUTH EVERY DAY 020 2020 Inactive metformin 500 mg tablet RxNorm: 132908 1 Tablet(s) Oral every day 020 2019 Inactive True Metrix Glucose Test Strip RxNorm: 1 Test Strips Miscellaneous two times a day as needed No Stop Date Active metformin 500 mg tablet RxNorm: 089960 1 Tablet(s) Oral every day 2019 Inactive diclofenac sodium 75 mg tablet,delayed release RxNorm: 137896 1 Tablet(s) PO BID 2021 Inactive This refill negates all other refills of this medication Sudafed 12 Hour 120 mg tablet,extended release RxNorm: 5477840 TAKE 1 TABLET BY MOUTH EVERY 12 HOURS NEEDED 020 2019 Inactive True Metrix Glucose Test Strip RxNorm: 1 Test Strips Miscellaneous every morning 020 2019 Inactive 100/container True Metrix Glucose Test Strip RxNorm: 1 Test Strips Miscellaneous QA 020 2019 Inactive 100/container loperamide 2 mg tablet RxNorm: 548489 1 Tablet(s) Oral as needed take one tablet after each loose stool, maximum of 8 tablets in 24 hours 020 2019 Inactive cetirizine 10 mg tablet RxNorm: 2519961 1 Tablet(s) PO daily 020 2019 Inactive loperamide 2 mg tablet RxNorm: 368650 1 Tablet(s) Oral as needed take one tablet after each loose stool, maximum of 8 tablets in 24 hours 2019 Inactive quetiapine 100 mg tablet RxNorm: 398693 1 Tablet(s) Oral every night at bedtime 2019 Inactive levothyroxine 50 mcg tablet RxNorm: 513749 1 Tablet(s) PO daily 2020 Inactive gabapentin 300 mg capsule RxNorm: 372053 1 Capsule(s) PO TID 2019 Inactive levothyroxine 50 mcg tablet RxNorm: 760737 1 Tablet(s) PO daily 2019 Inactive lisinopril 2.5 mg tablet RxNorm: 337037 1 Tablet(s) PO daily 2020 Inactive gabapentin 300 mg capsule RxNorm: 937003 1 Capsule(s) PO TID 2019 Inactive cetirizine 10 mg tablet RxNorm: 1448810 1 Tablet(s) PO daily 2019 Inactive Singulair 10 mg tablet RxNorm: 816597 1 Tablet(s) PO daily 2020 Inactive gentamicin 0.3 % eye drops RxNorm: 786991 1 Drop(s) ophthalmic (eye) four times a day 2019 Inactive gentamicin 0.3 % eye drops RxNorm: 340022 1 Drop(s) ophthalmic (eye) four times a day 2019 Inactive gentamicin 0.3 % eye drops RxNorm: 413647 1 Drop(s) ophthalmic (eye) four times a day 2019 Inactive hydrochlorothiazide 25 mg tablet RxNorm: 900178 1 Tablet(s) Oral every day 2019 Inactive Sudafed 12 Hour 120 mg tablet,extended release RxNorm: 7832934 TAKE (1) TABLET BY MOUTH EVERY 12 HOURS NEEDED 2019 Inactive loperamide 2 mg tablet RxNorm: 080627 1 Tablet(s) Oral as needed take one tablet after each loose stool, maximum of 8 tablets in 24 hours 020 2019 Inactive loperamide 2 mg tablet RxNorm: 769592 1 Tablet(s) Oral as needed take one tablet after each loose stool, maximum of 8 tablets in 24 hours 020 2019 Inactive atorvastatin 40 mg tablet RxNorm: 747934 1 Tablet(s) Oral every day 020 2020 Inactive quetiapine 100 mg tablet RxNorm: 944428 1 Tablet(s) Oral every night at bedtime 2019 Inactive sertraline 100 mg tablet RxNorm: 675615 1 Tablet(s) Oral 020 2019 Inactive omeprazole 20 mg capsule,delayed release RxNorm: 510583 1 Capsule(s) Oral every day 020 2019 Inactive amoxicillin 250 mg capsule RxNorm: 701121 1 Capsule(s) Oral three times a day 2019 Inactive multivitamin with iron-mineral tablet RxNorm: 1 Tablet(s) Oral every day 020 2021 Inactive cetirizine 10 mg tablet RxNorm: 2103190 1 Tablet(s) PO daily 2019 Inactive This refill negates all other refills of this medication. Please do not auto refill Singulair 10 mg tablet RxNorm: 680037 1 Tablet(s) PO daily 2019 Inactive This refill negates all other refills of this medication gabapentin 300 mg capsule RxNorm: 836065 1 Capsule(s) PO TID 2019 Inactive lisinopril 2.5 mg tablet RxNorm: 895766 1 Tablet(s) PO daily 020 2019 Inactive levothyroxine 50 mcg tablet RxNorm: 502144 1 Tablet(s) PO daily 020 2019 Inactive This refill negates all other refills of this medication hydrochlorothiazide 25 mg tablet RxNorm: 761437 1 Tablet(s) Oral every day 2019 Inactive fenugreek seed extract 500 mg capsule RxNorm: 1 Capsule(s) Oral three times a day 2021 Inactive Alcohol Prep Pads RxNorm: 809055 1 Patch TOP QAM 2020 Inactive loperamide 2 mg tablet RxNorm: 770032 1 Tablet(s) Oral as needed take one [...] 2019 Inactive hydrochlorothiazide 25 mg tablet RxNorm: 949952 1 Tablet(s) Oral every day 2019 Inactive Sudafed 12 Hour 120 mg tablet,extended release RxNorm: 3258094 1 Tablet(s) Oral every 12 hours as needed 2018 Inactive omeprazole 20 mg capsule,delayed release RxNorm: 541348 1 Capsule(s) Oral every day 2019 Inactive Sudafed 12 Hour 120 mg tablet,extended release RxNorm: 3534834 1 Tablet(s) Oral every 12 hours as needed 2018 Inactive pantoprazole 40 mg tablet,delayed release RxNorm: 440923 1 Tablet(s) Oral every day 2018 Inactive discontinue any other H2Blkr. and PPI albuterol sulfate 2.5 mg/3 mL (0.083 %) solution for nebulization RxNorm: 128532 1 Vial Inhalation every four hours as needed as needed for dyspnea 2019 Inactive 60/box. This refill negates all other refills of this medication. Please do not fill early. Please do not auto refill. Symbicort 160 mcg-4.5 mcg/actuation HFA aerosol inhaler RxNorm: 8182373 2 Puff(s) INH BID No Stop Date Active Alcohol Prep Pads RxNorm: 707433 1 Patch TOP QAM 019 2019 Inactive Ventolin HFA 90 mcg/actuation aerosol inhaler RxNorm: 030643 2 Puff(s) INH QID 019 2019 Inactive Please do not fill early. Please do not auto refill. This refill negates all other refills of this medication True Metrix Glucose Test Strip RxNorm: 1 Test Strips Miscellaneous QAM 019 2019 Inactive 100/container atorvastatin 40 mg tablet RxNorm: 771484 1 Tablet(s) Oral every day 019 2019 Inactive buspirone 7.5 mg tablet RxNorm: 618590 1 Tablet(s) PO BID 019 2020 Inactive This refill negates all other refills of this medication hydrochlorothiazide 12.5 mg tablet RxNorm: 686100 1 Tablet(s) PO QAM 019 2019 Inactive levmetamfetamine 50 mg nasal inhaler RxNorm: 1 Unit(s) NASAL Q3-4H Do not use more than every 3 hours or 8 times/24hours 019 2021 Inactive Please do not auto refill. This refill negates all other refills of this medication Ventolin HFA 90 mcg/actuation aerosol inhaler RxNorm: 627305 2 Puff(s) INH QID 019 2018 Inactive Please do not fill early. Please do not auto refill. This refill negates all other refills of this medication Singulair 10 mg tablet RxNorm: 502329 1 Tablet(s) PO daily 019 2019 Inactive This refill negates all other refills of this medication cetirizine 10 mg tablet RxNorm: 8943220 1 Tablet(s) PO daily 019 2019 Inactive This refill negates all other refills of this medication. Please do not auto refill levothyroxine 50 mcg tablet RxNorm: 559221 1 Tablet(s) PO daily 019 2019 Inactive This refill negates all other refills of this medication diclofenac sodium 75 mg tablet,delayed release RxNorm: 188882 1 Tablet(s) PO BID 019 2019 Inactive This refill negates all other refills of this medication ranitidine 150 mg tablet RxNorm: 805267 1 Tablet(s) PO BID 019 2018 Inactive This refill negates all other refills of this medication Calcium 600-D3 Plus (mag-zinc) 600 mg calcium-800 unit-50 mg tablet RxNorm: 1 Tablet(s) PO daily take an additonal tablet for itching. 019 2018 Inactive This refill negates all other refills of this medication albuterol sulfate 2.5 mg/3 mL (0.083 %) solution for nebulization RxNorm: 024526 1 Vial INH QID 2018 Inactive 60/box. This refill negates all other refills of this medication. Please do not fill early. Please do not auto refill. lisinopril 2.5 mg tablet RxNorm: 880572 1 Tablet(s) PO daily 019 2019 Inactive gabapentin 300 mg capsule RxNorm: 975260 1 Capsule(s) PO TID 019 2019 Inactive atorvastatin 20 mg tablet RxNorm: 522887 1 Tablet(s) PO QHS 2018 Inactive This refill negates all other refills of this medication TRUEplus Lancets 30 gauge RxNorm: 1 Lancets Miscellaneous QAM 019 2018 Inactive 100/box gabapentin 300 mg capsule RxNorm: 052978 1 Capsule(s) PO TID 019 2018 Inactive Flintstones Complete (iron) 18 mg iron chewable tablet RxNorm: 1 Tablet(s) PO daily 019 2021 Inactive This refill negates all other refills of this medication gabapentin 300 mg capsule RxNorm: 381005 1 Capsule(s) PO TID as needed 019 2018 Inactive True Metrix Glucose Test Strip RxNorm: 1 Test Strips Miscellaneous QAM 2018 Inactive 100/container Alcohol Prep Pads RxNorm: 266267 1 Patch TOP QAM 2018 Inactive TRUEplus Lancets 30 gauge RxNorm: 1 Lancets Miscellaneous QAM 019 2018 Inactive 100/box lisinopril 2.5 mg tablet RxNorm: 038895 1 Tablet(s) PO daily 2018 Inactive ranitidine 150 mg tablet RxNorm: 200708 1 Tablet(s) PO BID 2018 Inactive This refill negates all other refills of this medication albuterol sulfate 2.5 mg/3 mL (0.083 %) solution for nebulization RxNorm: 998331 1 Vial INH QID 019 2018 Inactive [...] this medication gabapentin 300 mg capsule RxNorm: 934800 1 Capsule(s) PO TID as needed 019 2018 Inactive atorvastatin 20 mg tablet RxNorm: 764042 1 Tablet(s) PO QHS 019 2018 Inactive This refill negates all other refills of this medication trazodone 50 mg tablet RxNorm: 179730 1 Tablet(s) PO QHS 01/19/2018 Inactive This refill negates all other refills of this medication Ventolin HFA 90 mcg/actuation aerosol inhaler RxNorm: 523552 2 Puff(s) INH QID 019 2018 Inactive Please do not fill early. Please do not auto refill. This refill negates all other refills of this medication Calcium 600-D3 Plus 600 mg calcium-800 unit-50 mg tablet RxNorm: 1 Tablet(s) PO daily take an additonal tablet for itching. 019 2018 Inactive This refill negates all other refills of this medication Singulair 10 mg tablet RxNorm: 059073 1 Tablet(s) PO daily 019 2018 Inactive This refill negates all other refills of this medication buspirone 7.5 mg tablet RxNorm: 722605 1 Tablet(s) PO BID 019 2018 Inactive This refill negates all other refills of this medication diclofenac sodium 75 mg tablet,delayed release RxNorm: 190794 1 Tablet(s) PO BID 019 2018 Inactive This refill negates all other refills of this medication hydrochlorothiazide 12.5 mg tablet RxNorm: 058606 1 Tablet(s) PO QAM 019 2018 Inactive metoprolol succinate ER 50 mg tablet,extended release 24 hr RxNorm: 141099 1 Tablet(s) PO daily 019 2018 Inactive This refill negates all other refills of this medication levothyroxine 50 mcg tablet RxNorm: 208977 1 Tablet(s) PO daily 019 2018 Inactive This refill negates all other refills of this medication cetirizine 10 mg tablet RxNorm: 2232102 1 Tablet(s) PO daily 019 2018 Inactive This refill negates all other refills of this medication. Please do not auto refill Flintstones Complete (iron) 18 mg iron chewable tablet RxNorm: 1 Tablet(s) PO daily 019 2018 Inactive This refill negates all other refills of this medication buspirone 7.5 mg tablet RxNorm: 109572 1 Tablet(s) PO BID 2018 Inactive cetirizine 10 mg tablet RxNorm: 7686214 1 Tablet(s) PO daily 2018 Inactive Guaiasorb DM 10 mg-100 mg/5 mL oral liquid RxNorm: 385335 10 Milliliter(s) PO As needed every 4 hr 2018 Inactive Vicks Vaporub 4.7 %-1.2 %-2.6 % topical ointment RxNorm: 9268276 1 Application TOP TID 2018 Inactive levmetamfetamine 50 mg nasal inhaler RxNorm: 1 Unit(s) NASAL Q3-4H 2017 Inactive sertraline 50 mg tablet RxNorm: 227419 1 Tablet(s) PO daily 2018 Inactive Please note dose trazodone 50 mg tablet RxNorm: 091123 1 Tablet(s) PO QHS 2018 Inactive sertraline 50 mg tablet RxNorm: 510922 1 Tablet(s) PO daily 2017 Inactive amoxicillin 500 mg tablet RxNorm: 349404 1 Tablet(s) PO Q12H 2017 Inactive albuterol sulfate 2.5 mg/3 mL (0.083 %) solution for nebulization RxNorm: 837314 1 Vial INH QID 2018 Inactive 60/box. Please do not fill early. Please do not auto refill. Prozac 10 mg capsule RxNorm: 352384 1 Capsule(s) PO daily 2017 Inactive buspirone 7.5 mg tablet RxNorm: 086338 1 Tablet(s) PO BID 018 2018 Inactive gabapentin 300 mg capsule RxNorm: 558374 1 Capsule(s) PO TID as needed 2018 Inactive hydrochlorothiazide 12.5 mg tablet RxNorm: 003809 1 Tablet(s) PO QAM 018 2018 Inactive ranitidine 150 mg tablet RxNorm: 094693 1 Tablet(s) PO BID 018 2018 Inactive Macrobid 100 mg capsule RxNorm: 907057 1 Capsule(s) PO Q12H 018 2017 Inactive Singulair 10 mg tablet RxNorm: 402450 1 Tablet(s) PO daily 018 2018 Inactive Ventolin HFA 90 mcg/actuation aerosol inhaler RxNorm: 3549428 2 Puff(s) INH QID 018 2018 Inactive Singulair 10 mg tablet RxNorm: 000178 1 Tablet(s) PO daily 018 2017 Inactive buspirone 7.5 mg tablet RxNorm: 906646 1 Tablet(s) PO BID 018 2017 Inactive Prozac 10 mg capsule RxNorm: 062012 1 Capsule(s) PO daily 018 2017 Inactive diclofenac sodium 75 mg tablet,delayed release RxNorm: 213813 1 Tablet(s) PO BID 018 2017 Inactive lisinopril 2.5 mg tablet RxNorm: 524383 1 Tablet(s) PO daily 018 2017 Inactive Neilmed Pediatric Sinus Rinse Refill packet RxNorm: 1 Unit Dose NASAL PRN 018 2021 Inactive metoprolol succinate ER 50 mg tablet,extended release 24 hr RxNorm: 373740 1 Tablet(s) PO daily 018 2017 Inactive levothyroxine 50 mcg tablet RxNorm: 301166 1 Tablet(s) PO daily 018 2017 Inactive TRUEplus Lancets 30 gauge RxNorm: 1 Lancets Miscellaneous QAM 018 2017 Inactive 100/box Ventolin HFA 90 mcg/actuation aerosol inhaler RxNorm: 288379 2 Puff(s) INH QID 018 2017 Inactive Aleve 220 mg capsule RxNorm: 9479079 1 Capsule(s) PO BID 018 2018 Inactive ranitidine 150 mg tablet RxNorm: 732982 1 Tablet(s) PO BID 018 2017 Inactive gabapentin 300 mg capsule RxNorm: 218591 1 Capsule(s) PO TID as needed 2017 Inactive atorvastatin 20 mg tablet RxNorm: 484299 1 Tablet(s) PO QHS 018 2017 Inactive True Metrix Glucose Test Strip RxNorm: 1 Test Strips Miscellaneous QAM 2017 Inactive 50/container Calcium 600-D3 Plus 600 mg calcium-800 unit-50 mg tablet RxNorm: 1 Tablet(s) PO daily take an additonal tablet for itching. 018 2017 Inactive hydrochlorothiazide 12.5 mg tablet RxNorm: 452244 1 Tablet(s) PO QAM 018 2017 Inactive Flintstones Complete (iron) 18 mg iron chewable tablet RxNorm: 1 Tablet(s) PO daily 018 2017 Inactive True Metrix Glucose Meter RxNorm: miscellaneous 019 2018 Inactive sertraline 50 mg tablet RxNorm: 596112 1 Tablet(s) PO daily 020 2019 Inactive loperamide 2 mg tablet RxNorm: 763235 oral 019 2018 Inactive d-mannose oral powder RxNorm: PO 018 2021 Inactive Symbicort 160 mcg-4.5 mcg/actuation HFA aerosol inhaler RxNorm: 3608982 2 Puff(s) INH BID 019 2018 Inactive Medication Administered No Medication Administered data Procedures Procedure Codes Date Patient Health Questionnaire CPT-4: DPHQ Electrocardiogram CPT-4: 46866 06/24/2023 Urinalysis, dip stick CPT-4: 97439 05/04/2023 Rowlett Fany Assessment CPT-4: DSWA 01/02 Fall Risk Assessment CPT-4: DFRA 01/27/2023 Hypertension CPT-4: HTN 01/27/2023 Patient Health Questionnaire CPT-4: DPHQ Pain Screening CPT-4: PAS 2022 Tobacco Assessment/Screening CPT-4: TCA Hypertension CPT-4: HTN 08/17/2022 Rowlett Fany Assessment CPT-4: DSWA 04/02 Patient Health [...] CPT-4: VACP Fall Risk Assessment SNOMED CT: 59910135 4 CPT-4: DFRA01/13/2021emmes Fany AssessmentCPT-4: DSWA12/17/2020Urinalysis, dip stickCPT-4: 438014009/24/2020Patient Health QuestionnaireCPT-4: DPHQ 08/19/2020ElectrocardiogramCPT-4: 0563758Tobacco Assessment/Screening CPT-4: TCA01/01/2020Fall Risk AssessmentSNOMED CT: 464613924 CPT-4: DFRA01/01/2020Functional AssessmentCPT-4: DFA01/01/2020Semmes Fany AssessmentCPT-4: DSWA11/28/2019Patient Health QuestionnaireCPT-4: DPHQ11/28/2019 Rowlett Fany AssessmentCPT-4: DSWA10/17/2019HypertensionCPT-4: HTN10/17/[address]: 084509030 CPT-4: DFRA09/19/2019Functional AssessmentCPT-4: DFA111/20/2018Urinalysis, dip stickCPT-4: 0549271Tobacco Assessment/ScreeningCPT-4: TCA05/24/2019 Patient Health QuestionnaireCPT-4: DPHQ05/24/2019AHA/REBECCA Classification AssessmentCPT-4: DAHA04/25/2019Controlled Substance ReportCPT-4: CTRSU04/25/2019 Urinalysis, dip stickCPT-4: 8139991Urinalysis, dip stickCPT-4: 10077 03/28/20190448F4B-QyhmmajciovfesxRXJ-1: 22153PfaststS9G-IbiwxcdiinuhlypKUB-2: 75404 SwdoqjyD5J-CjstsgfbcdnfjvoMLB-8: 15131LaokxgeH8Q-VetnkefksmbkxntXRN-0: 95510 RjsoisbY8T-EgfjulzlekjpgwtLZK-4: 47442ZhozrbhM2E-AsyeoounedbmvlvFYG-8: 44417 LmbjpuqW6Z-EtrrlsclorbamxbAOT-1: 98288AelumquZ4B-SyqdumtaxutytwnAJX-9: 48171 CfnymczT0G-YpzrtncprcwkuwhWYQ-6: 70610XukwjddV2M-FonwgijctsarovwXSM-6: 10916 PvtcijvA2A-RhurzsufyyyjyfiMQA-8: 40622ZheysqkA6E-StgszdzfckynsbaNXU-5: [address]: 768041690 CPT-4: V30Impphle Reason For Visit No Reason For Visit data Plan of Care Planned Activity Notes Codes Status Date Referral: Pending Gynecology Referral Informatio n Referral ProcessedReferral: Pending Pulmonology Referral InformationReferralProcessed Referral: Pending Psychiatry Referral InformationReferralInitiatedReferral: Pending Respiratory Services Referral InformationReferralInitiatedReferral: Pending Ophthalmology Referral InformationReferralInitiatedReferral: [facility] WPtel: [address] [place], [place] [phone] USWriter placed a call out to the patient to notify her that it has been recommended that she be seenby a urologist. Patient agreed to be seen, does not have a provider of choice and no transportationissues. [employer]ic faxed referral and clinical notes to [facility] in [place], [place] near the patient's home. Patient to [...] prefers a provider in the [place] or [place] area. [employer]line [employer]ic placed a call out to everyone listed in the area and the only location that was able to accept the patient's insurance was [address] [phone] and spoke with Maylin. Maylin asked that the patient's referral, face sheet and visit notes be faxed to . [employer]ic faxed over requested documents. Patient appointment confirmation letter generated and mailed to her home address. Patient to call to schedule an appointment.ProcessedReferral: [facility] WPtel: [address] [place] [address] [place], [place] [id number] USPatient notified that it has been advised that she be seen by Neurology. Patient agreed to be seen and prefers to be seen by a provider in the [place], [place] area. Patient denies any concerns with transportation, and prefers to schedule her own appointment. [employer]ic [facility] to [facility] [...]
--- OUTSIDE RECORDS SUMMARY | 2024-01-03 23:27 | XMS_ITS | CCD ---
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 Resident Intern Name Role Phone Palomo KING, Anna Primary Care Provider Unav ailable Unavailable Chronic Care Management Unavaila ble Summary Purpose DataExchange Insurance Providers Payer name Policy type / Coverage type Covered democrat ID Effective Begin Date Effective End Date SUKI [facility]TS [facility] [id number] Unknown Unknown Family history Mother Diagnosis Age [...] 05/31/2018 Education level Unknown Some High School 10th05/31/20180055LwpdsiofkzGazhkbjOrnzulhwcn16/29/2018Tobacco historySNOMED CT: [id number] never smoked or chewed vokkknv4405/31/2018Alcohol historySNOMED CT: 204150546Xwixj drinks nojwzks9005/31/2018Has the patient ever used illegal drugs? UnknownHas never used illegal drugs05/31/2018DNR Order/ Advanced Directive UnknownFull Code05/31/2018 Allergies, Adverse Reactions, Alerts Substance Reaction Codes Entered Date Inactivated Date Status OxyContin itch, RxNorm: 475355 01/13/2021 No Inactive Da te Active *No known food allergies Qefwcpd9709/06/2018No Inactive DateActiveMethylprednisolonehivesRxNorm: 6902 09/06/2018No Inactive DateActive Problems [...] examinationICD-10: Z01.810 ICD-9: V72.8106/InactiveHeadacheICD-10: R51 ICD-9: 784.001InactiveOther snf (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ICD-10: Z79.899 ICD-9: V58.6907InactiveType 2 [...] Fill Instructions montelukast 10 mg tablet RxNorm: 102647 Take 1 Tablet(s) Oral every day 023 2022 Inactive gabapentin 300 mg capsule RxNorm: 765030 Take 1 Capsule(s) Oral three times a day 023 2022 Inactive metformin ER 500 mg 24 hr tablet,extended release RxNorm: 0901781 Take 1 Tablet(s) Oral every day with the evening meal 023 2022 Inactive famotidine 20 mg tablet RxNorm: 337479 Take 1 Tablet(s) Oral every morning 023 2022 Inactive levothyroxine 50 mcg tablet RxNorm: 567435 Take 1 Tablet(s) Oral every day 023 2023 Active Msg From [facility]: Approval Requested hydrochlorothiazide 25 mg tablet RxNorm: 655261 Take 1 Tablet(s) Oral every day 023 2023 Active Msg From [facility]: Approval Requested atorvastatin 20 mg tablet RxNorm: 698759 Take 1 Tablet(s) Oral every night at bedtime 023 2023 Active Macrobid 100 mg capsule RxNorm: 759794 1 Capsule(s) Oral every 12 hours with food 023 2022 Inactive omeprazole 40 mg capsule,delayed release RxNorm: 808185 Take 1 Capsule(s) Oral every night at bedtime 023 2022 Inactive trazodone 50 mg tablet RxNorm: 706494 Administer 1 Tablet(s) Oral every night at bedtime 023 No Stop Date Active cholecalciferol (vitamin D3) 50 mcg (2,000 unit) tablet RxNorm: 895416 Take 1 Tablet(s) Oral every day 023 2023 Active Ozempic 1 mg/dose (4 mg/3 mL) subcutaneous pen injector RxNorm: 1352097 USE 1 UNIT DOSE SUBCUTANEOUSLY ON TUE OF EACH WEEK 023 2022 Inactive lisinopril 2.5 mg tablet RxNorm: 379981 Take 1 Tablet(s) Oral every day 023 2022 Inactive Msg From [facility]: Dr. Benny Sandy Ozempic 1 mg/dose (4 mg/3 mL) subcutaneous pen injector RxNorm: 4487734 USE 1 UNIT DOSE SUBCUTANEOUSLY ON TUE OF EACH WEEK 023 2022 Inactive omeprazole 40 mg capsule,delayed release RxNorm: 698832 Take 1 Capsule(s) Oral every night at bedtime 023 2022 Inactive gabapentin 300 mg capsule RxNorm: 696986 Take 1 Capsule(s) Oral three times a day 023 2022 Inactive montelukast 10 mg tablet RxNorm: 719137 Take 1 Tablet(s) Oral every day 023 2022 Inactive omeprazole 20 mg capsule,delayed release RxNorm: 965476 Take 1 Capsule(s) Oral every evening 022 2022 Inactive Alcohol Prep Pads RxNorm: 421596 USE EACH MORNING 022 2021 Inactive E11.42 clotrimazole 1 % topical cream RxNorm: 329849 Apply 1 Application Topical two times a day as needed apply to affected area(s) twice daily until healed 2021 Inactive Victoza 2-Sebastián 0.6 mg/0.1 mL (18 mg/3 mL) subcutaneous pen injector RxNorm: 288517 Inject 0.6-1.8 Milligram(s) Subcutaneous once a week Inject 0.6mg/0.1ml week one, 1.2mg/0.2ml week two, 1.8/0.3ml weekly thereafter 2021 Inactive ibuprofen 800 mg tablet RxNorm: 088402 Take 1 Tablet(s) Oral Q8H as needed for pain take with food No Stop Date Active Ozempic 1 mg/dose (4 mg/3 mL) subcutaneous pen injector RxNorm: 0895271 Take 1 Unit Dose Subcutaneous QWeek Tuesday2021 Inactive lisinopril 2.5 mg tablet RxNorm: 516430 Take 1 Tablet(s) Oral every day 022 2021 Inactive lisinopril 2.5 mg tablet RxNorm: 766622 Take 1 Tablet(s) Oral every day 022 2022 Inactive hydrochlorothiazide 25 mg tablet RxNorm: 616465 Take 1 Tablet(s) Oral every day 022 2021 Inactive Ozempic 1 mg/dose (4 mg/3 mL) subcutaneous pen injector RxNorm: 3877897 Take 1 Unit Dose Subcutaneous QWeek 022 2021 Inactive famotidine 20 mg tablet RxNorm: 998346 Take 1 Tablet(s) Oral every morning 2021 Inactive levothyroxine 50 mcg tablet RxNorm: 983611 Take 1 Tablet(s) Oral every day 022 2021 Inactive atorvastatin 20 mg tablet RxNorm: 314010 Take 1 Tablet(s) Oral every night at bedtime 2021 Inactive Cleocin T 1 % lotion RxNorm: 558332 Take 2 Gram(s) Topical every day 022 2021 Inactive Cleocin T 1 % lotion RxNorm: 344519 Take 2 Gram(s) Topical every day 022 2021 Inactive Ozempic 1 mg/dose (4 mg/3 mL) subcutaneous pen injector RxNorm: 3193931 Take 1 Unit Dose Subcutaneous QWeek 022 2021 Inactive Ozempic 0.25 mg or 0.5 mg (2 mg/1.5 mL) subcutaneous pen injector RxNorm: 5779828 INJECT 0.5 MGS SUBCUTANEOUSLY EVERY WEEK 022 2021 Inactive omeprazole 20 mg capsule,delayed release RxNorm: 433857 Take 1 Capsule(s) Oral every evening 06/2021 Inactive levothyroxine 50 mcg tablet RxNorm: 124325 Take 1 Tablet(s) Oral every day 2021 Inactive atorvastatin 20 mg tablet RxNorm: 315078 Take 1 Tablet(s) Oral every night at bedtime 2021 Inactive This refill negates all other refills of this medication lisinopril 2.5 mg tablet RxNorm: 090794 Take 1 Tablet(s) Oral every day 022 2021 Inactive gabapentin 300 mg capsule RxNorm: 658416 Take 1 Capsule(s) Oral three times a day 2021 Inactive montelukast 10 mg tablet RxNorm: 643454 Take 1 Tablet(s) Oral every day 2021 Inactive Myrbetriq 50 mg tablet,extended release RxNorm: 4580071 1 Tablet(s) Oral every day No Stop Date Active cholecalciferol (vitamin D3) 50 mcg (2,000 unit) tablet RxNorm: 606569 Take 1 Tablet(s) Oral every day 2022 Inactive Ozempic 0.25 mg or 0.5 mg (2 mg/1.5 mL) subcutaneous pen injector RxNorm: 3042026 inject 0.5 milligrams subcutaneously every week 2021 Inactive Ozempic 0.25 mg or 0.5 mg (2 mg/1.5 mL) subcutaneous pen injector RxNorm: 1005867 Take 0.5 Capsule(s) Injection once a week 022 2021 Inactive omeprazole 20 mg capsule,delayed release RxNorm: 998302 Take 1 Capsule(s) Oral every evening 2020 Inactive Ozempic 0.25 mg or 0.5 mg (2 mg/1.5 mL) subcutaneous pen injector RxNorm: 9089883 Take 0.25 Milligram(s) Subcutaneous once a week 021 2021 Inactive Easy Touch Alcohol Prep Pads RxNorm: 444058 USE DIRECTED EACH MORNING 021 2021 Inactive Probiotic 10 billion cell capsule RxNorm: 6613247 Take 1 Capsule(s) Oral every day 021 2021 Inactive levothyroxine 50 mcg tablet RxNorm: 322156 Take 1 Tablet(s) Oral every day 021 2020 Inactive Acid [employer] (famotidine) 20 mg tablet RxNorm: 315223 Take 1 Tablet(s) Oral every morning 021 2020 Inactive Heartburn Relief (famotidine) 10 mg tablet RxNorm: 864312 Take 1 Tablet(s) Oral QAM 021 2020 Inactive levothyroxine 50 mcg tablet RxNorm: 441431 Take 1 Tablet(s) Oral QD 2020 Inactive Singulair 10 mg tablet RxNorm: 594771 TAKE (1) TABLET BY MOUTH DAILY 2020 Inactive metformin 1,000 mg tablet RxNorm: 211472 1 Tablet(s) Oral two times a day 021 2021 Inactive lisinopril 2.5 mg tablet RxNorm: 289379 Take 1 Tablet(s) Oral every day 021 2020 Inactive hydrochlorothiazide 25 mg tablet RxNorm: 107856 Take 1 Tablet(s) Oral every day 021 2020 Inactive ondansetron 4 mg disintegrating tablet RxNorm: 885372 1 Tablet(s) Oral two times a day 021 2020 Inactive Sudafed 12 Hour 120 mg tablet,extended release RxNorm: 0812029 TAKE 1 TABLET BY MOUTH EVERY 12 HOURS NEEDED 2021 Inactive Heartburn Relief (famotidine) 10 mg tablet RxNorm: 192387 Take 1 Tablet(s) Oral every morning 021 2020 Inactive omeprazole 20 mg capsule,delayed release RxNorm: 227013 1 Capsule(s) Oral every evening 021 2020 Inactive sertraline 100 mg tablet RxNorm: 118650 2 Tablet(s) Oral every day 021 2020 Inactive levothyroxine 50 mcg tablet RxNorm: 519559 TAKE (1) TABLET BY MOUTH DAILY 021 2020 Inactive metformin 500 mg tablet RxNorm: 090474 1 Tablet(s) Oral two times a day take with 500mg to equal 1000mg 021 2020 Inactive gabapentin 300 mg capsule RxNorm: 834220 TAKE 1 CAPSULE BY MOUTH THREE TIMES A DAY 021 2020 Inactive lisinopril 2.5 mg tablet RxNorm: 865531 TAKE 1 TABLET BY MOUTH DAILY 021 2020 Inactive gabapentin 300 mg capsule RxNorm: 508267 TAKE 1 CAPSULE BY MOUTH THREE TIMES A DAY 021 2020 Inactive Singulair 10 mg tablet RxNorm: 807612 TAKE (1) TABLET BY MOUTH DAILY 021 2020 Inactive metformin 1,000 mg tablet RxNorm: 095479 1 Tablet(s) Oral two times a day 021 2020 Inactive atorvastatin 40 mg tablet RxNorm: 225382 1 Tablet(s) Oral every day 021 2020 Inactive omeprazole 20 mg capsule,delayed release RxNorm: 048418 1 Capsule(s) Oral every evening 021 2020 Inactive famotidine 10 mg tablet RxNorm: 847940 1 Tablet(s) Oral every morning 021 2020 Inactive Alcohol Prep Pads RxNorm: 715054 USE EACH MORNING 021 2020 Inactive omeprazole 20 mg capsule,delayed release RxNorm: 788333 1 Capsule(s) Oral two times a day 021 2021 Inactive omeprazole 20 mg capsule,delayed release RxNorm: 863957 TAKE 1 CAPSULE BY MOUTH EVERY DAY 021 2021 Inactive Macrobid 100 mg capsule RxNorm: 629765 1 Capsule(s) Oral every 12 hours with food 2020 Inactive omeprazole 20 mg capsule,delayed release RxNorm: 974698 1 Capsule(s) Oral two times a day 2021 Inactive metformin 1,000 mg tablet RxNorm: 790764 1 Tablet(s) Oral two times a day 2020 Inactive start on September 11, 2020 metformin 500 mg tablet RxNorm: 970556 1 Tablet(s) Oral two times a day take with 500mg to equal 1000mg 2019 Inactive gabapentin 300 mg capsule RxNorm: 321820 TAKE 1 CAPSULE BY MOUTH THREE TIMES DAILY 2020 Inactive cetirizine 10 mg tablet RxNorm: 8050743 TAKE (1) TABLET BY MOUTH DAILY 2020 Inactive metformin 500 mg tablet RxNorm: 793650 1 Tablet(s) Oral two times a day 2019 Inactive loperamide 2 mg tablet RxNorm: 692088 1 Tablet(s) Oral as needed take one tablet after each loose stool, maximum of 8 tablets in 24 hours 2021 Inactive Sudafed 12 Hour 120 mg tablet,extended release RxNorm: 5413596 TAKE 1 TABLET BY MOUTH EVERY 12 HOURS NEEDED 2019 Inactive hydrochlorothiazide 25 mg tablet RxNorm: 069535 TAKE (1) TABLET BY MOUTH EVERY DAY 2019 Inactive omeprazole 20 mg capsule,delayed release RxNorm: 656840 TAKE 1 CAPSULE BY MOUTH EVERY DAY 2020 Inactive metformin 500 mg tablet RxNorm: 098357 1 Tablet(s) Oral every day 2019 Inactive True Metrix Glucose Test Strip RxNorm: 1 Test Strips Miscellaneous two times a day as needed No Stop Date Active metformin 500 mg tablet RxNorm: 994334 1 Tablet(s) Oral every day 2019 Inactive diclofenac sodium 75 mg tablet,delayed release RxNorm: 201811 1 Tablet(s) PO BID 2021 Inactive This refill negates all other refills of this medication Sudafed 12 Hour 120 mg tablet,extended release RxNorm: 0181338 TAKE 1 TABLET BY MOUTH EVERY 12 HOURS NEEDED 020 2019 Inactive True Metrix Glucose Test Strip RxNorm: 1 Test Strips Miscellaneous every morning 020 2019 Inactive 100/container True Metrix Glucose Test Strip RxNorm: 1 Test Strips Miscellaneous QAM 020 2019 Inactive 100/container loperamide 2 mg tablet RxNorm: 197815 1 Tablet(s) Oral as needed take one tablet after each loose stool, maximum of 8 tablets in 24 hours 020 2019 Inactive cetirizine 10 mg tablet RxNorm: 1859837 1 Tablet(s) PO daily 2019 Inactive loperamide 2 mg tablet RxNorm: 676964 1 Tablet(s) Oral as needed take one tablet after each loose stool, maximum of 8 tablets in 24 hours 020 2019 Inactive quetiapine 100 mg tablet RxNorm: 726735 1 Tablet(s) Oral every night at bedtime 2019 Inactive levothyroxine 50 mcg tablet RxNorm: 270144 1 Tablet(s) PO daily 2020 Inactive gabapentin 300 mg capsule RxNorm: 236932 1 Capsule(s) PO TID 020 2019 Inactive levothyroxine 50 mcg tablet RxNorm: 113943 1 Tablet(s) PO daily 020 2019 Inactive lisinopril 2.5 mg tablet RxNorm: 477931 1 Tablet(s) PO daily 020 2020 Inactive gabapentin 300 mg capsule RxNorm: 852620 1 Capsule(s) PO TID 020 2019 Inactive cetirizine 10 mg tablet RxNorm: 2673100 1 Tablet(s) PO daily 2019 Inactive Singulair 10 mg tablet RxNorm: 932324 1 Tablet(s) PO daily 2020 Inactive gentamicin 0.3 % eye drops RxNorm: 190558 1 Drop(s) ophthalmic (eye) four times a day 2019 Inactive gentamicin 0.3 % eye drops RxNorm: 400979 1 Drop(s) ophthalmic (eye) four times a day 2019 Inactive gentamicin 0.3 % eye drops RxNorm: 454104 1 Drop(s) ophthalmic (eye) four times a day 2019 Inactive hydrochlorothiazide 25 mg tablet RxNorm: 555802 1 Tablet(s) Oral every day 2019 Inactive Sudafed 12 Hour 120 mg tablet,extended release RxNorm: 6622841 TAKE (1) TABLET BY MOUTH EVERY 12 HOURS NEEDED 2019 Inactive loperamide 2 mg tablet RxNorm: 019158 1 Tablet(s) Oral as needed take one tablet after each loose stool, maximum of 8 tablets in 24 hours 020 2019 Inactive loperamide 2 mg tablet RxNorm: 406916 1 Tablet(s) Oral as needed take one tablet after each loose stool, maximum of 8 tablets in 24 hours 020 2019 Inactive atorvastatin 40 mg tablet RxNorm: 989311 1 Tablet(s) Oral every day 2020 Inactive quetiapine 100 mg tablet RxNorm: 725055 1 Tablet(s) Oral every night at bedtime 2019 Inactive sertraline 100 mg tablet RxNorm: 601830 1 Tablet(s) Oral 2019 Inactive omeprazole 20 mg capsule,delayed release RxNorm: 204742 1 Capsule(s) Oral every day 020 2019 Inactive amoxicillin 250 mg capsule RxNorm: 384890 1 Capsule(s) Oral three times a day 020 2019 Inactive multivitamin with iron-mineral tablet RxNorm: 1 Tablet(s) Oral every day 2021 Inactive cetirizine 10 mg tablet RxNorm: 7686831 1 Tablet(s) PO daily 2019 Inactive This refill negates all other refills of this medication. Please do not auto refill Singulair 10 mg tablet RxNorm: 949212 1 Tablet(s) PO daily 2019 Inactive This refill negates all other refills of this medication gabapentin 300 mg capsule RxNorm: 993789 1 Capsule(s) PO TID 2019 Inactive lisinopril 2.5 mg tablet RxNorm: 745496 1 Tablet(s) PO daily 2019 Inactive levothyroxine 50 mcg tablet RxNorm: 329288 1 Tablet(s) PO daily 2019 Inactive This refill negates all other refills of this medication hydrochlorothiazide 25 mg tablet RxNorm: 081037 1 Tablet(s) Oral every day 2019 Inactive fenugreek seed extract 500 mg capsule RxNorm: 1 Capsule(s) Oral three times a day 2021 Inactive Alcohol Prep Pads RxNorm: 864506 1 Patch TOP QAM 2020 Inactive loperamide 2 mg tablet RxNorm: 441456 1 Tablet(s) Oral as needed take one [...] 2019 Inactive hydrochlorothiazide 25 mg tablet RxNorm: 521798 1 Tablet(s) Oral every day 019 2019 Inactive Sudafed 12 Hour 120 mg tablet,extended release RxNorm: 7807568 1 Tablet(s) Oral every 12 hours as needed 2018 Inactive omeprazole 20 mg capsule,delayed release RxNorm: 800969 1 Capsule(s) Oral every day 2019 Inactive Sudafed 12 Hour 120 mg tablet,extended release RxNorm: 1394589 1 Tablet(s) Oral every 12 hours as needed 2018 Inactive pantoprazole 40 mg tablet,delayed release RxNorm: 921380 1 Tablet(s) Oral every day 2018 Inactive discontinue any other H2Blkr. and PPI albuterol sulfate 2.5 mg/3 mL (0.083 %) solution for nebulization RxNorm: 756218 1 Vial Inhalation every four hours as needed as needed for dyspnea 2019 Inactive 60/box. This refill negates all other refills of this medication. Please do not fill early. Please do not auto refill. Symbicort 160 mcg-4.5 mcg/actuation HFA aerosol inhaler RxNorm: 0473933 2 Puff(s) INH BID No Stop Date Active Alcohol Prep Pads RxNorm: 537553 1 Patch TOP QAM 2019 Inactive Ventolin HFA 90 mcg/actuation aerosol inhaler RxNorm: 665858 2 Puff(s) INH QID 2019 Inactive Please do not fill early. Please do not auto refill. This refill negates all other refills of this medication True Metrix Glucose Test Strip RxNorm: 1 Test Strips Miscellaneous QAM 019 2019 Inactive 100/container atorvastatin 40 mg tablet RxNorm: 468135 1 Tablet(s) Oral every day 019 2019 Inactive buspirone 7.5 mg tablet RxNorm: 607547 1 Tablet(s) PO BID 019 2020 Inactive This refill negates all other refills of this medication hydrochlorothiazide 12.5 mg tablet RxNorm: 624170 1 Tablet(s) PO QAM 019 2019 Inactive levmetamfetamine 50 mg nasal inhaler RxNorm: 1 Unit(s) NASAL Q3-4H Do not use more than every 3 hours or 8 times/24hours 019 2021 Inactive Please do not auto refill. This refill negates all other refills of this medication Ventolin HFA 90 mcg/actuation aerosol inhaler RxNorm: 917277 2 Puff(s) INH QID 2018 Inactive Please do not fill early. Please do not auto refill. This refill negates all other refills of this medication Singulair 10 mg tablet RxNorm: 646072 1 Tablet(s) PO daily 019 2019 Inactive This refill negates all other refills of this medication cetirizine 10 mg tablet RxNorm: 0566273 1 Tablet(s) PO daily 019 2019 Inactive This refill negates all other refills of this medication. Please do not auto refill levothyroxine 50 mcg tablet RxNorm: 004083 1 Tablet(s) PO daily 019 2019 Inactive This refill negates all other refills of this medication diclofenac sodium 75 mg tablet,delayed release RxNorm: 780254 1 Tablet(s) PO BID 019 2019 Inactive This refill negates all other refills of this medication ranitidine 150 mg tablet RxNorm: 872675 1 Tablet(s) PO BID 019 2018 Inactive This refill negates all other refills of this medication Calcium 600-D3 Plus (mag-zinc) 600 mg calcium-800 unit-50 mg tablet RxNorm: 1 Tablet(s) PO daily take an additonal tablet for itching. 019 2018 Inactive This refill negates all other refills of this medication albuterol sulfate 2.5 mg/3 mL (0.083 %) solution for nebulization RxNorm: 932202 1 Vial INH QID 019 2018 Inactive 60/box. This refill negates all other refills of this medication. Please do not fill early. Please do not auto refill. lisinopril 2.5 mg tablet RxNorm: 831845 1 Tablet(s) PO daily 2019 Inactive gabapentin 300 mg capsule RxNorm: 369029 1 Capsule(s) PO TID 019 2019 Inactive atorvastatin 20 mg tablet RxNorm: 464705 1 Tablet(s) PO QHS 2018 Inactive This refill negates all other refills of this medication TRUEplus Lancets 30 gauge RxNorm: 1 Lancets Miscellaneous QAM 019 2018 Inactive 100/box gabapentin 300 mg capsule RxNorm: 734773 1 Capsule(s) PO TID 019 2018 Inactive Flintstones Complete (iron) 18 mg iron chewable tablet RxNorm: 1 Tablet(s) PO daily 019 2021 Inactive This refill negates all other refills of this medication gabapentin 300 mg capsule RxNorm: 427713 1 Capsule(s) PO TID as needed 019 2018 Inactive True Metrix Glucose Test Strip RxNorm: 1 Test Strips Miscellaneous QA 2018 Inactive 100/container Alcohol Prep Pads RxNorm: 843881 1 Patch TOP QAM 019 2018 Inactive TRUEplus Lancets 30 gauge RxNorm: 1 Lancets Miscellaneous QAM 019 2018 Inactive 100/box lisinopril 2.5 mg tablet RxNorm: 991611 1 Tablet(s) PO daily 019 2018 Inactive ranitidine 150 mg tablet RxNorm: 183076 1 Tablet(s) PO BID 019 2018 Inactive This refill negates all other refills of this medication albuterol sulfate 2.5 mg/3 mL (0.083 %) solution for nebulization RxNorm: 733379 1 Vial INH QID 019 2018 Inactive [...] this medication gabapentin 300 mg capsule RxNorm: 442142 1 Capsule(s) PO TID as needed 019 2018 Inactive atorvastatin 20 mg tablet RxNorm: 977921 1 Tablet(s) PO QHS 019 2018 Inactive This refill negates all other refills of this medication trazodone 50 mg tablet RxNorm: 389222 1 Tablet(s) PO QHS 019 2018 Inactive This refill negates all other refills of this medication Ventolin HFA 90 mcg/actuation aerosol inhaler RxNorm: 741744 2 Puff(s) INH QID 019 2018 Inactive Please do not fill early. Please do not auto refill. This refill negates all other refills of this medication Calcium 600-D3 Plus 600 mg calcium-800 unit-50 mg tablet RxNorm: 1 Tablet(s) PO daily take an additonal tablet for itching. 019 2018 Inactive This refill negates all other refills of this medication Singulair 10 mg tablet RxNorm: 792456 1 Tablet(s) PO daily 019 2018 Inactive This refill negates all other refills of this medication buspirone 7.5 mg tablet RxNorm: 875015 1 Tablet(s) PO BID 019 2018 Inactive This refill negates all other refills of this medication diclofenac sodium 75 mg tablet,delayed release RxNorm: 560734 1 Tablet(s) PO BID 019 2018 Inactive This refill negates all other refills of this medication hydrochlorothiazide 12.5 mg tablet RxNorm: 024752 1 Tablet(s) PO QAM 019 2018 Inactive metoprolol succinate ER 50 mg tablet,extended release 24 hr RxNorm: 188774 1 Tablet(s) PO daily 019 2018 Inactive This refill negates all other refills of this medication levothyroxine 50 mcg tablet RxNorm: 678128 1 Tablet(s) PO daily 019 2018 Inactive This refill negates all other refills of this medication cetirizine 10 mg tablet RxNorm: 5279560 1 Tablet(s) PO daily 019 2018 Inactive This refill negates all other refills of this medication. Please do not auto refill Flintstones Complete (iron) 18 mg iron chewable tablet RxNorm: 1 Tablet(s) PO daily 019 2018 Inactive This refill negates all other refills of this medication buspirone 7.5 mg tablet RxNorm: 076529 1 Tablet(s) PO BID 019 2018 Inactive cetirizine 10 mg tablet RxNorm: 0236809 1 Tablet(s) PO daily 018 2018 Inactive Guaiasorb DM 10 mg-100 mg/5 mL oral liquid RxNorm: 724521 10 Milliliter(s) PO As needed every 4 hr 2018 Inactive Vicks Vaporub 4.7 %-1.2 %-2.6 % topical ointment RxNorm: 2433493 1 Application TOP TID 2018 Inactive levmetamfetamine 50 mg nasal inhaler RxNorm: 1 Unit(s) NASAL Q3-4H 018 2017 Inactive sertraline 50 mg tablet RxNorm: 077074 1 Tablet(s) PO daily 018 2018 Inactive Please note dose trazodone 50 mg tablet RxNorm: 807743 1 Tablet(s) PO QHS 018 2018 Inactive sertraline 50 mg tablet RxNorm: 107962 1 Tablet(s) PO daily 018 2017 Inactive amoxicillin 500 mg tablet RxNorm: 230815 1 Tablet(s) PO Q12H 018 2017 Inactive albuterol sulfate 2.5 mg/3 mL (0.083 %) solution for nebulization RxNorm: 940410 1 Vial INH QID 018 2018 Inactive 60/box. Please do not fill early. Please do not auto refill. Prozac 10 mg capsule RxNorm: 076672 1 Capsule(s) PO daily 018 2017 Inactive buspirone 7.5 mg tablet RxNorm: 435004 1 Tablet(s) PO BID 018 2018 Inactive gabapentin 300 mg capsule RxNorm: 804769 1 Capsule(s) PO TID as needed 018 2018 Inactive hydrochlorothiazide 12.5 mg tablet RxNorm: 680431 1 Tablet(s) PO QAM 018 2018 Inactive ranitidine 150 mg tablet RxNorm: 024068 1 Tablet(s) PO BID 018 2018 Inactive Macrobid 100 mg capsule RxNorm: 887831 1 Capsule(s) PO Q12H 018 2017 Inactive Singulair 10 mg tablet RxNorm: 898246 1 Tablet(s) PO daily 018 2018 Inactive Ventolin HFA 90 mcg/actuation aerosol inhaler RxNorm: 2322217 2 Puff(s) INH QID 018 2018 Inactive Singulair 10 mg tablet RxNorm: 202807 1 Tablet(s) PO daily 018 2017 Inactive buspirone 7.5 mg tablet RxNorm: 986777 1 Tablet(s) PO BID 018 2017 Inactive Prozac 10 mg capsule RxNorm: 617182 1 Capsule(s) PO daily 018 2017 Inactive diclofenac sodium 75 mg tablet,delayed release RxNorm: 041736 1 Tablet(s) PO BID 018 2017 Inactive lisinopril 2.5 mg tablet RxNorm: 867688 1 Tablet(s) PO daily 018 2017 Inactive Neilmed Pediatric Sinus Rinse Refill packet RxNorm: 1 Unit Dose NASAL PRN 018 2021 Inactive metoprolol succinate ER 50 mg tablet,extended release 24 hr RxNorm: 666540 1 Tablet(s) PO daily 018 2017 Inactive levothyroxine 50 mcg tablet RxNorm: 544239 1 Tablet(s) PO daily 018 2017 Inactive TRUEplus Lancets 30 gauge RxNorm: 1 Lancets Miscellaneous QAM 018 2017 Inactive 100/box Ventolin HFA 90 mcg/actuation aerosol inhaler RxNorm: 272738 2 Puff(s) INH QID 018 2017 Inactive Aleve 220 mg capsule RxNorm: 7479357 1 Capsule(s) PO BID 018 2018 Inactive ranitidine 150 mg tablet RxNorm: 761997 1 Tablet(s) PO BID 018 2017 Inactive gabapentin 300 mg capsule RxNorm: 814925 1 Capsule(s) PO TID as needed 018 2017 Inactive atorvastatin 20 mg tablet RxNorm: 284188 1 Tablet(s) PO QHS 018 2017 Inactive True Metrix Glucose Test Strip RxNorm: 1 Test Strips Miscellaneous QAM 018 2017 Inactive 50/container Calcium 600-D3 Plus 600 mg calcium-800 unit-50 mg tablet RxNorm: 1 Tablet(s) PO daily take an additonal tablet for itching. 018 2017 Inactive hydrochlorothiazide 12.5 mg tablet RxNorm: 553386 1 Tablet(s) PO QAM 018 2017 Inactive Flintstones Complete (iron) 18 mg iron chewable tablet RxNorm: 1 Tablet(s) PO daily 018 2017 Inactive True Metrix Glucose Meter RxNorm: miscellaneous 019 2018 Inactive sertraline 50 mg tablet RxNorm: 663835 1 Tablet(s) PO daily 020 2019 Inactive loperamide 2 mg tablet RxNorm: 132946 oral 019 2018 Inactive d-mannose oral powder RxNorm: PO 018 2021 Inactive Symbicort 160 mcg-4.5 mcg/actuation HFA aerosol inhaler RxNorm: 0981046 2 Puff(s) INH BID 019 2018 Inactive Medication Administered No Medication Administered data Procedures Procedure Codes Date Urinalysis, dip stick CPT-4: 25643 05/04/2023 Griffin Fany Assessment CPT-4: DSWA 01/02 Fall Risk Assessment CPT-4: DFRA 01/27/2023 Hypertension CPT-4: HTN 01/27/2023 Patient Health Questionnaire CPT-4: DPHQ Pain Screening CPT-4: PAS 2022 Tobacco Assessment/Screening CPT-4: TCA Hypertension CPT-4: HTN 08/17/2022 Griffin Fany Assessment CPT-4: DSWA 04/02 Patient Health [...] 04/13/202 1 Fall Risk Assessment SNOMED CT: 63338478 4 CPT-4: DFRA1Semmes Fany AssessmentCPT-4: DSWA12/17/2020Urinalysis, dip stickCPT-4: 586548709/24/2020Patient Health QuestionnaireCPT-4: DPHQ 08/19/2020ElectrocardiogramCPT-4: 356529905/14/2020Tobacco Assessment/Screening CPT-4: TCA01/01/2020Fall Risk AssessmentSNOMED CT: 915083807 CPT-4: DFRA01/01/2020Functional AssessmentCPT-4: DFA01/01/2020Semmes Fany AssessmentCPT-4: DSWA11/28/2019Patient Health QuestionnaireCPT-4: DPHQ11/28/2019 Griffin Fany AssessmentCPT-4: DS10/17/2019HypertensionCPT-4: HTN10/17/[address]: 83[address]6871 CPT-4: DFRA09/19/2019Functional AssessmentCPT-4: DFA111/20/2018Urinalysis, dip stickCPT-4: 4376574Tobacco Assessment/ScreeningCPT-4: TCA05/24/2019 Patient Health QuestionnaireCPT-4: DPHQ05/24/2019AHA/REBECCA Classification AssessmentCPT-4: DAHA04/25/2019Controlled Substance ReportCPT-4: CTRSU04/25/2019 Urinalysis, dip stickCPT-4: 619598603/28/2019Urinalysis, dip stickCPT-4: 94949 03/28/20197734P6U-BocxjbclabepjwjKLM-6: 01771NcudwpuU7D-UzbnhetveehxlshWUF-6: 82825 RgrglbqE6W-MzhjewkzzgnawfoBOT-0: 17183IgnijybZ9L-InfuzjemveegpkwGHB-5: 38412 SftcalcE3E-MiyjubecsurwvjdJVB-3: 55220KjbruorB8C-DnedgtvfuhdvddpXKE-5: 25120 ZlcfgouB6G-IrovhkkrqwrvhxaCYC-1: 40245ElhlzauQ4Z-NtdgbtvqtmsypqpKED-5: 88266 TbskjaiP5F-FalaxuqxydslyonLZZ-7: 09940IrespfiA0R-NfaukmkekonajtrSNW-6: 74839 MhqkttvE6Y-UhrtuwkxfrkhfnfKGM-2: 13334BckqphvT4M-ZyqotljvueguzftYYD-8: [address]: 828517907 CPT-4: E79Ebmydsv Reason For Visit No Reason For Visit data Plan of Care Planned Activity Notes Codes Status Date Referral: Pending Gynecology Referral Informatio n Referral ProcessedReferral: Pending Pulmonology Referral InformationReferralProcessed Referral: Pending Psychiatry Referral InformationReferralInitiatedReferral: Pending Respiratory Services Referral InformationReferralInitiatedReferral: Pending Ophthalmology Referral InformationReferralInitiatedReferral: [facility] WPtel: [address] [place] [address] USWriter placed a call out to the patient to notify her that it has been recommended that she be seenby a urologist. Patient agreed to be seen, does not have a provider of choice and no transportationissues. Director Of Alumni Relations faxed referral and clinical notes to [facility] in [place], [place] near the patient's home. Patient to [...] seen and prefers a provider in the [place] or [place] area. Director Of Alumni Relations placed a call out to everyone listed in the area and the only location that was able to accept the patient's insurance was [place] [address] [place] [address] and spoke with Maylin. Maylin asked that the patient's referral, face sheet and visit notes be faxed to . Director Of Alumni Relations faxed over requested documents. Patient appointment confirmation letter generated and mailed to her home address. Patient to call to schedule an appointment.ProcessedReferral: [facility] WPtel: [address] [id number] USPatient notified that it has been advised that she be seen by Neurology. Patient agreed to be seen and prefers to be seen by a provider in the [place], [place] area. Patient denies any concerns with transportation, and prefers to schedule her own appointment. Director Of Alumni Relations placed a call out to [facility] and spoke with [...]
--- OUTSIDE RECORDS SUMMARY | 2024-01-03 23:28 | XMS_ITS | CCD ---
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 Name Role Phone Anna Culver NP Primary Care Provider Unav ailable Unavailable Chronic Care Management Unavaila ble Summary Purpose DataExchange Insurance Providers Payer name Policy type / Coverage type Covered libertarian ID Effective Begin Date Effective End Date SUKI MAYO [id number] Unknown Unknown Family history Mother Diagnosis Age [...] 05/31/2018 Education level Unknown Some High School 10th05/31/20183829HjxmkaipfdWaoczxxNynzvugygf70/29/2018Tobacco historySNOMED CT: [id number] never smoked or chewed [id number]/31/2018Alcohol historySNOMED CT: 269517748Sbrgb drinks eklimcj2105/31/2018Has the patient ever used illegal drugs? UnknownHas never used illegal drugs05/31/2018DNR Order/ Advanced Directive UnknownFull Code05/31/2018 Allergies, Adverse Reactions, Alerts Substance Reaction Codes Entered Date Inactivated Date Status OxyContin itch, RxNorm: 686373 01/13/2021 No Inactive Da te Active *No known food allergies Qtllwom7509/06/2018No Inactive DateActiveMethylprednisolonehivesRxNorm: 6902 09/06/2018No Inactive DateActive Problems Condition Codes Effective Dates Condition St atus Impetigo ICD-10: L01.00 ICD-9: 36542/4ActiveMajor depression, recurrentICD-10: F33.9 ICD-9: 296.3009/ctiveType 2 diabetes mellitus with hyperglycemia, without long-term current use of insulinICD-10: E11.65 ICD-9: 250.0011/ctiveHypertensive heart disease without heart failure ICD-10: I11.9 ICD-9: 402.9003/ctiveType 2 diabetes mellitus with peripheral neuropathy ICD-10: E11.42 ICD-9: 250.6002/ActiveUpper respiratory infectionICD-10: J06.9 ICD-9: 465.912/ctiveEncounter for immunizationICD-10: Z23 ICD-9: V04.8111/ctiveRight foot painICD-10: M79.671 ICD-9: 729.511/ctiveAdult BMI 50.0-59.9 kg/sq mICD-10: Z68.43 ICD-9: V85.4308/ActiveAllergic rhinitisICD-10: J30.9 ICD-9: 477.903/ctiveHyperlipidemia, mixedICD-10: E78.2 ICD-9: [...] ICD-9: 682.907/InactiveAnkle sprainICD-10: S93.409A ICD-9: 845.0010/InactiveEncounter for screening for tobacco useICD-10: Z01.89 ICD-9: V72.8501/InactiveFungal infection of skinICD-10: B36.9 ICD-9: 111.911/InactiveHistory of bladder surgeryICD-10: Z98.890 ICD-9: V45.8904/InactiveInfluenza vaccine refusedICD-10: Z28.21 ICD-9: V64.0609/InactiveOpen wound of right middle fingerICD-10: S61.A ICD-9: 883.001/InactiveHypertensionICD-10: I10 ICD-9: 401.903/ctivePost-traumatic stress disorder, unspecifiedICD-10: F43.10 ICD-9: 309.8112ActiveAdjustment disorder with mixed anxiety and depressed moodICD-10: F43.23 ICD-9: 309.2812/01/2018ActiveHypothyroidICD-10: E03.9 ICD-9: 244.912/01/2018ActiveEdema, unspecifiedICD-10: R60.9 ICD-9: 782.310/06/2018ActiveHypertensive heart disease with [...] 786.0905/06/2019ResolvedElevated liver enzymesICD-10: R74.8 ICD-9: 790.504/1ResolvedEncounter for screening, unspecifiedICD-10: Z13.9 ICD-9: V82.912ResolvedFamily history of seizuresICD-10: Z84.89 ICD-9: V19.807/1ResolvedHyperlipidemia, unspecifiedICD-10: E78.5 ICD-9: 272.408ResolvedLong term (current) use of non-steroidal anti- inflammatories (NSAID)ICD-10: Z79.1 ICD-9: V58.6409/08/2018ResolvedPatient Not SeenICD-10: UXZ.01 ICD-9: XZ0.107/ResolvedPatient not seenICD-10: UXZ.01 ICD-9: UXZ.0112/1ResolvedSyncope and collapseICD-10: R55 ICD-9: 780.ActiveUrinary retention with incomplete bladder emptying ICD-10: R33.9 ICD-9: 788.21041ActiveApnea, not elsewhere classifiedICD-10: R06.81 ICD-9: 786.0305InactiveChest pain, unspecifiedICD-10: R07.9 ICD-9: 786.5002InactiveChronic kidney disease, unspecifiedICD-10: N18.9 ICD-9: 585.909/InactiveEncounter for immunizationICD-10: Z23 ICD-9: V03.907/InactiveEncounter for preprocedural cardiovascular examinationICD-10: Z01.810 ICD-9: V72.8106/InactiveHeadacheICD-10: R51 ICD-9: 784.001InactiveOther care home (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ICD-10: Z79.899 ICD-9: V58.6907/InactiveType 2 diabetes mellitus without complications ICD-10: E11.9 ICD-9: 250.0001InactiveWheezingICD-10: R06.2 ICD-9: 786.0711InactiveAbnormal urine findingICD-10: R82.90 ICD-9: 791.912ResolvedAbrasion of toeICD-10: S90.416A ICD-9: 917.005ResolvedPink eyeICD-10: H10.029 ICD-9: 372.0303ResolvedRight wrist painICD-10: M25.531 ICD-9: 719.4308/09/2020ResolvedSinusitisICD-10: J32.9 ICD-9: 473.902/02/2020ResolvedSuperficial burn of multiple sites of right hand, subsequent encounterICD-10: T23.191D ICD-9: V58.8902/esolvedPolyneuropathy, unspecifiedICD-10: G62.9 ICD-9: 356.908/ActiveFecal incontinenceICD-10: R15.9 ICD-9: 787.6003/ActiveMixed incontinenceICD-10: N39.46 ICD-9: 788.3308Active Medications Medication Codes Instructions Start Date Stop Date Status Fill Instructions hydrocortisone 2.5 % topical cream RxNorm: 308365 Apply Application Topical two times a day a thin layer to the affected area(s) 024 No Stop Date Active amoxicillin 500 mg tablet RxNorm: 608481 Take 1 Tablet(s) Oral two times a day 024 2023 Inactive omeprazole 40 mg capsule,delayed release RxNorm: 790342 Take 1 Capsule(s) Oral HS 024 2023 Active Januvia 100 mg tablet RxNorm: 988161 Take 1 Tablet(s) Oral every day 023 2023 Active amoxicillin 250 mg capsule RxNorm: 643953 Take 1 Capsule(s) Oral three times a day 023 2022 Inactive amoxicillin 500 mg tablet RxNorm: 686654 Take 1 Tablet(s) Oral three times a day 023 2022 Inactive Ozempic 1 mg/dose (4 mg/3 mL) subcutaneous pen injector RxNorm: 7242509 INJECT 1 UNITS DOSE SUBCUTANEOUSLY ON TUESDAY OF EACH WEEK 023 2023 Active MED IS ON B/O omeprazole 40 mg capsule,delayed release RxNorm: 125971 Take 1 Capsule(s) Oral HS 023 2022 Inactive Januvia 50 mg tablet RxNorm: 908523 Take 1 Tablet(s) Oral two times a day 023 2023 Inactive famotidine 20 mg tablet RxNorm: 608514 TAKE 1 TABLET BY MOUTH EACH MORNING 023 2023 Active Januvia 25 mg tablet RxNorm: 832016 Take 1 Tablet(s) Oral every day 023 2022 Inactive Ozempic 1 mg/dose (4 mg/3 mL) subcutaneous pen injector RxNorm: 2977554 INJECT 1 UNITS DOSE SUBCUTANEOUSLY ON TUESDAY OF EACH WEEK 023 2022 Inactive cetirizine 10 mg tablet RxNorm: 8924403 TAKE (1) TABLET BY MOUTH DAILY 023 2023 Inactive amoxicillin 500 mg tablet RxNorm: 373405 Take 1 Tablet(s) Oral two times a day 023 2022 Inactive omeprazole 40 mg capsule,delayed release RxNorm: 385690 Take 1 Capsule(s) Oral at bed time 023 2022 Inactive Easy Touch Alcohol Prep Pads RxNorm: 439522 USE EACH MORNING 023 2024 Active montelukast 10 mg tablet RxNorm: 259269 Take 1 Tablet(s) Oral every day 023 2022 Inactive gabapentin 300 mg capsule RxNorm: 265430 Take 1 Capsule(s) Oral three times a day 023 2022 Inactive metformin ER 500 mg 24 hr tablet,extended release RxNorm: 5036281 Take 1 Tablet(s) Oral every day with the evening meal 023 2022 Inactive famotidine 20 mg tablet RxNorm: 067632 Take 1 Tablet(s) Oral every morning 023 2022 Inactive levothyroxine 50 mcg tablet RxNorm: 721887 Take 1 Tablet(s) Oral every day 023 2023 Active Msg From [facility]: Dr. Zapata Requested hydrochlorothiazide 25 mg tablet RxNorm: 149834 Take 1 Tablet(s) Oral every day 023 2023 Active Msg From [facility]: Approval Requested atorvastatin 20 mg tablet RxNorm: 082052 Take 1 Tablet(s) Oral every night at bedtime 023 2023 Active Macrobid 100 mg capsule RxNorm: 081542 1 Capsule(s) Oral every 12 hours with food 023 2022 Inactive omeprazole 40 mg capsule,delayed release RxNorm: 20021111 Take 1 Capsule(s) Oral every night at bedtime 023 2022 Inactive trazodone 50 mg tablet RxNorm: 731522 Administer 1 Tablet(s) Oral every night at bedtime 023 No Stop Date Active cholecalciferol (vitamin D3) 50 mcg (2,000 unit) tablet RxNorm: 031924 Take 1 Tablet(s) Oral every day 023 2023 Active Ozempic 1 mg/dose (4 mg/3 mL) subcutaneous pen injector RxNorm: 9315106 USE 1 UNIT DOSE SUBCUTANEOUSLY ON TUE OF EACH WEEK 023 2022 Inactive lisinopril 2.5 mg tablet RxNorm: 502169 Take 1 Tablet(s) Oral every day 023 2022 Inactive Msg From [facility]: Approval Requested Ozempic 1 mg/dose (4 mg/3 mL) subcutaneous pen injector RxNorm: 7499433 USE 1 UNIT DOSE SUBCUTANEOUSLY ON TUE OF EACH WEEK 023 2022 Inactive omeprazole 40 mg capsule,delayed release RxNorm: 20021111 Take 1 Capsule(s) Oral every night at bedtime 023 2022 Inactive gabapentin 300 mg capsule RxNorm: 708616 Take 1 Capsule(s) Oral three times a day 023 2022 Inactive montelukast 10 mg tablet RxNorm: 970482 Take 1 Tablet(s) Oral every day 023 2022 Inactive omeprazole 20 mg capsule,delayed release RxNorm: 741484 Take 1 Capsule(s) Oral every evening 022 2022 Inactive Alcohol Prep Pads RxNorm: 553191 USE EACH MORNING 2021 Inactive E11.42 clotrimazole 1 % topical cream RxNorm: 642442 Apply 1 Application Topical two times a day as needed apply to affected area(s) twice daily until healed 2021 Inactive Victoza 2-Sebastián 0.6 mg/0.1 mL (18 mg/3 mL) subcutaneous pen injector RxNorm: 928379 Inject 0.6-1.8 Milligram(s) Subcutaneous once a week Inject 0.6mg/0.1ml week one, 1.2mg/0.2ml week two, 1.8/0.3ml weekly thereafter 2021 Inactive ibuprofen 800 mg tablet RxNorm: 408820 Take 1 Tablet(s) Oral Q8H as needed for pain take with food No Stop Date Active Ozempic 1 mg/dose (4 mg/3 mL) subcutaneous pen injector RxNorm: 7938514 Take 1 Unit Dose Subcutaneous QWeek Tuesday 022 2021 Inactive lisinopril 2.5 mg tablet RxNorm: 991012 Take 1 Tablet(s) Oral every day 022 2021 Inactive lisinopril 2.5 mg tablet RxNorm: 914016 Take 1 Tablet(s) Oral every day 022 2022 Inactive hydrochlorothiazide 25 mg tablet RxNorm: 721722 Take 1 Tablet(s) Oral every day 022 2021 Inactive Ozempic 1 mg/dose (4 mg/3 mL) subcutaneous pen injector RxNorm: 2506608 Take 1 Unit Dose Subcutaneous QWeek 022 2021 Inactive famotidine 20 mg tablet RxNorm: 221918 Take 1 Tablet(s) Oral every morning 022 2021 Inactive levothyroxine 50 mcg tablet RxNorm: 222622 Take 1 Tablet(s) Oral every day 022 2021 Inactive atorvastatin 20 mg tablet RxNorm: 425722 Take 1 Tablet(s) Oral every night at bedtime 022 2021 Inactive Cleocin T 1 % lotion RxNorm: 338611 Take 2 Gram(s) Topical every day 022 2021 Inactive Cleocin T 1 % lotion RxNorm: 923767 Take 2 Gram(s) Topical every day 022 2021 Inactive Ozempic 1 mg/dose (4 mg/3 mL) subcutaneous pen injector RxNorm: 5805842 Take 1 Unit Dose Subcutaneous QWeek 022 2021 Inactive Ozempic 0.25 mg or 0.5 mg (2 mg/1.5 mL) subcutaneous pen injector RxNorm: 2216574 INJECT 0.5 MGS SUBCUTANEOUSLY EVERY WEEK 022 2021 Inactive omeprazole 20 mg capsule,delayed release RxNorm: 779060 Take 1 Capsule(s) Oral every evening 2021 Inactive levothyroxine 50 mcg tablet RxNorm: 022919 Take 1 Tablet(s) Oral every day 022 2021 Inactive atorvastatin 20 mg tablet RxNorm: 870200 Take 1 Tablet(s) Oral every night at bedtime 2021 Inactive This refill negates all other refills of this medication lisinopril 2.5 mg tablet RxNorm: 835110 Take 1 Tablet(s) Oral every day 2021 Inactive gabapentin 300 mg capsule RxNorm: 043071 Take 1 Capsule(s) Oral three times a day 022 2021 Inactive montelukast 10 mg tablet RxNorm: 087382 Take 1 Tablet(s) Oral every day 022 2021 Inactive Myrbetriq 50 mg tablet,extended release RxNorm: 0161056 1 Tablet(s) Oral every day 022 No Stop Date Active cholecalciferol (vitamin D3) 50 mcg (2,000 unit) tablet RxNorm: 757351 Take 1 Tablet(s) Oral every day 03/03/2022 Inactive Ozempic 0.25 mg or 0.5 mg (2 mg/1.5 mL) subcutaneous pen injector RxNorm: 8518758 inject 0.5 milligrams subcutaneously every week 2021 Inactive Ozempic 0.25 mg or 0.5 mg (2 mg/1.5 mL) subcutaneous pen injector RxNorm: 2899551 Take 0.5 Capsule(s) Injection once a week 2021 Inactive omeprazole 20 mg capsule,delayed release RxNorm: 629780 Take 1 Capsule(s) Oral every evening 2020 Inactive Ozempic 0.25 mg or 0.5 mg (2 mg/1.5 mL) subcutaneous pen injector RxNorm: 7125444 Take 0.25 Milligram(s) Subcutaneous once a week 2021 Inactive Easy Touch Alcohol Prep Pads RxNorm: 651905 USE DIRECTED EACH MORNING 2021 Inactive Probiotic 10 billion cell capsule RxNorm: 7810686 Take 1 Capsule(s) Oral every day 2021 Inactive levothyroxine 50 mcg tablet RxNorm: 653680 Take 1 Tablet(s) Oral every day 2020 Inactive Acid [employer] (famotidine) 20 mg tablet RxNorm: 924530 Take 1 Tablet(s) Oral every morning 2020 Inactive Heartburn Relief (famotidine) 10 mg tablet RxNorm: 308453 Take 1 Tablet(s) Oral QAM 2020 Inactive levothyroxine 50 mcg tablet RxNorm: 103472 Take 1 Tablet(s) Oral QD 2020 Inactive Singulair 10 mg tablet RxNorm: 102011 TAKE (1) TABLET BY MOUTH DAILY 2020 Inactive metformin 1,000 mg tablet RxNorm: 206192 1 Tablet(s) Oral two times a day 2021 Inactive lisinopril 2.5 mg tablet RxNorm: 063913 Take 1 Tablet(s) Oral every day 021 2020 Inactive hydrochlorothiazide 25 mg tablet RxNorm: 226644 Take 1 Tablet(s) Oral every day 021 2020 Inactive ondansetron 4 mg disintegrating tablet RxNorm: 807891 1 Tablet(s) Oral two times a day 021 2020 Inactive Sudafed 12 Hour 120 mg tablet,extended release RxNorm: 4487111 TAKE 1 TABLET BY MOUTH EVERY 12 HOURS NEEDED 021 2021 Inactive Heartburn Relief (famotidine) 10 mg tablet RxNorm: 617244 Take 1 Tablet(s) Oral every morning 021 2020 Inactive omeprazole 20 mg capsule,delayed release RxNorm: 371091 1 Capsule(s) Oral every evening 021 2020 Inactive sertraline 100 mg tablet RxNorm: 575359 2 Tablet(s) Oral every day 021 2020 Inactive levothyroxine 50 mcg tablet RxNorm: 982758 TAKE (1) TABLET BY MOUTH DAILY 021 2020 Inactive metformin 500 mg tablet RxNorm: 743455 1 Tablet(s) Oral two times a day take with 500mg to equal 1000mg 021 2020 Inactive gabapentin 300 mg capsule RxNorm: 845826 TAKE 1 CAPSULE BY MOUTH THREE TIMES A DAY 021 2020 Inactive lisinopril 2.5 mg tablet RxNorm: 557121 TAKE 1 TABLET BY MOUTH DAILY 021 2020 Inactive gabapentin 300 mg capsule RxNorm: 609327 TAKE 1 CAPSULE BY MOUTH THREE TIMES A DAY 021 2020 Inactive Singulair 10 mg tablet RxNorm: 145083 TAKE (1) TABLET BY MOUTH DAILY 021 2020 Inactive metformin 1,000 mg tablet RxNorm: 122499 1 Tablet(s) Oral two times a day 2020 Inactive atorvastatin 40 mg tablet RxNorm: 089695 1 Tablet(s) Oral every day 2020 Inactive omeprazole 20 mg capsule,delayed release RxNorm: 440390 1 Capsule(s) Oral every evening 2020 Inactive famotidine 10 mg tablet RxNorm: 842847 1 Tablet(s) Oral every morning 2020 Inactive Alcohol Prep Pads RxNorm: 900738 USE EACH MORNING 2020 Inactive omeprazole 20 mg capsule,delayed release RxNorm: 630634 1 Capsule(s) Oral two times a day 2021 Inactive omeprazole 20 mg capsule,delayed release RxNorm: 173570 TAKE 1 CAPSULE BY MOUTH EVERY DAY 2021 Inactive Macrobid 100 mg capsule RxNorm: 298757 1 Capsule(s) Oral every 12 hours with food 2020 Inactive omeprazole 20 mg capsule,delayed release RxNorm: 598146 1 Capsule(s) Oral two times a day 2021 Inactive metformin 1,000 mg tablet RxNorm: 255445 1 Tablet(s) Oral two times a day 2020 Inactive start on September 11, 2020 metformin 500 mg tablet RxNorm: 508651 1 Tablet(s) Oral two times a day take with 500mg to equal 1000mg 2019 Inactive gabapentin 300 mg capsule RxNorm: 049251 TAKE 1 CAPSULE BY MOUTH THREE TIMES DAILY 2020 Inactive cetirizine 10 mg tablet RxNorm: 9952622 TAKE (1) TABLET BY MOUTH DAILY 2020 Inactive metformin 500 mg tablet RxNorm: 069002 1 Tablet(s) Oral two times a day 2019 Inactive loperamide 2 mg tablet RxNorm: 262994 1 Tablet(s) Oral as needed take one tablet after each loose stool, maximum of 8 tablets in 24 hours 2021 Inactive Sudafed 12 Hour 120 mg tablet,extended release RxNorm: 1147269 TAKE 1 TABLET BY MOUTH EVERY 12 HOURS NEEDED 020 2019 Inactive hydrochlorothiazide 25 mg tablet RxNorm: 144832 TAKE (1) TABLET BY MOUTH EVERY DAY 020 2019 Inactive omeprazole 20 mg capsule,delayed release RxNorm: 079800 TAKE 1 CAPSULE BY MOUTH EVERY DAY 020 2020 Inactive metformin 500 mg tablet RxNorm: 319116 1 Tablet(s) Oral every day 020 2019 Inactive True Metrix Glucose Test Strip RxNorm: 1 Test Strips Miscellaneous two times a day as needed No Stop Date Active metformin 500 mg tablet RxNorm: 375689 1 Tablet(s) Oral every day 020 2019 Inactive diclofenac sodium 75 mg tablet,delayed release RxNorm: 482926 1 Tablet(s) PO BID 2021 Inactive This refill negates all other refills of this medication Sudafed 12 Hour 120 mg tablet,extended release RxNorm: 7700539 TAKE 1 TABLET BY MOUTH EVERY 12 HOURS NEEDED 020 2019 Inactive True Metrix Glucose Test Strip RxNorm: 1 Test Strips Miscellaneous every morning 020 2019 Inactive 100/container True Metrix Glucose Test Strip RxNorm: 1 Test Strips Miscellaneous [facility] 020 2019 Inactive 100/container loperamide 2 mg tablet RxNorm: 743332 1 Tablet(s) Oral as needed take one tablet after each loose stool, maximum of 8 tablets in 24 hours 020 2019 Inactive cetirizine 10 mg tablet RxNorm: 3481914 1 Tablet(s) PO daily 020 2019 Inactive loperamide 2 mg tablet RxNorm: 499787 1 Tablet(s) Oral as needed take one tablet after each loose stool, maximum of 8 tablets in 24 hours 020 2019 Inactive quetiapine 100 mg tablet RxNorm: 291435 1 Tablet(s) Oral every night at bedtime 2019 Inactive levothyroxine 50 mcg tablet RxNorm: 235639 1 Tablet(s) PO daily 020 2020 Inactive gabapentin 300 mg capsule RxNorm: 133456 1 Capsule(s) PO TID 2019 Inactive levothyroxine 50 mcg tablet RxNorm: 368743 1 Tablet(s) PO daily 2019 Inactive lisinopril 2.5 mg tablet RxNorm: 295341 1 Tablet(s) PO daily 2020 Inactive gabapentin 300 mg capsule RxNorm: 505417 1 Capsule(s) PO TID 2019 Inactive cetirizine 10 mg tablet RxNorm: 9654303 1 Tablet(s) PO daily 2019 Inactive Singulair 10 mg tablet RxNorm: 683056 1 Tablet(s) PO daily 2020 Inactive gentamicin 0.3 % eye drops RxNorm: 315394 1 Drop(s) ophthalmic (eye) four times a day 2019 Inactive gentamicin 0.3 % eye drops RxNorm: 208715 1 Drop(s) ophthalmic (eye) four times a day 2019 Inactive gentamicin 0.3 % eye drops RxNorm: 481854 1 Drop(s) ophthalmic (eye) four times a day 2019 Inactive hydrochlorothiazide 25 mg tablet RxNorm: 884505 1 Tablet(s) Oral every day 2019 Inactive Sudafed 12 Hour 120 mg tablet,extended release RxNorm: 8823964 TAKE (1) TABLET BY MOUTH EVERY 12 HOURS NEEDED 2019 Inactive loperamide 2 mg tablet RxNorm: 529491 1 Tablet(s) Oral as needed take one tablet after each loose stool, maximum of 8 tablets in 24 hours 2019 Inactive loperamide 2 mg tablet RxNorm: 905094 1 Tablet(s) Oral as needed take one tablet after each loose stool, maximum of 8 tablets in 24 hours 2019 Inactive atorvastatin 40 mg tablet RxNorm: 461137 1 Tablet(s) Oral every day 2020 Inactive quetiapine 100 mg tablet RxNorm: 912175 1 Tablet(s) Oral every night at bedtime 2019 Inactive sertraline 100 mg tablet RxNorm: 895849 1 Tablet(s) Oral 2019 Inactive omeprazole 20 mg capsule,delayed release RxNorm: 889925 1 Capsule(s) Oral every day 2019 Inactive amoxicillin 250 mg capsule RxNorm: 409739 1 Capsule(s) Oral three times a day 2019 Inactive multivitamin with iron-mineral tablet RxNorm: 1 Tablet(s) Oral every day 2021 Inactive cetirizine 10 mg tablet RxNorm: 3562654 1 Tablet(s) PO daily 2019 Inactive This refill negates all other refills of this medication. Please do not auto refill Singulair 10 mg tablet RxNorm: 883759 1 Tablet(s) PO daily 2019 Inactive This refill negates all other refills of this medication gabapentin 300 mg capsule RxNorm: 130460 1 Capsule(s) PO TID 2019 Inactive lisinopril 2.5 mg tablet RxNorm: 117402 1 Tablet(s) PO daily 2019 Inactive levothyroxine 50 mcg tablet RxNorm: 304861 1 Tablet(s) PO daily 2019 Inactive This refill negates all other refills of this medication hydrochlorothiazide 25 mg tablet RxNorm: 312002 1 Tablet(s) Oral every day 2019 Inactive fenugreek seed extract 500 mg capsule RxNorm: 1 Capsule(s) Oral three times a day 2021 Inactive Alcohol Prep Pads RxNorm: 726668 1 Patch TOP QAM 2020 Inactive loperamide 2 mg tablet RxNorm: 124500 1 Tablet(s) Oral as needed take one [...] 2019 Inactive hydrochlorothiazide 25 mg tablet RxNorm: 789670 1 Tablet(s) Oral every day 2019 Inactive Sudafed 12 Hour 120 mg tablet,extended release RxNorm: 4496116 1 Tablet(s) Oral every 12 hours as needed 2018 Inactive omeprazole 20 mg capsule,delayed release RxNorm: 432351 1 Capsule(s) Oral every day 2019 Inactive Sudafed 12 Hour 120 mg tablet,extended release RxNorm: 6977735 1 Tablet(s) Oral every 12 hours as needed 2018 Inactive pantoprazole 40 mg tablet,delayed release RxNorm: 192394 1 Tablet(s) Oral every day 2018 Inactive discontinue any other H2Blkr. and PPI albuterol sulfate 2.5 mg/3 mL (0.083 %) solution for nebulization RxNorm: 713326 1 Vial Inhalation every four hours as needed as needed for dyspnea 2019 Inactive 60/box. This refill negates all other refills of this medication. Please do not fill early. Please do not auto refill. Symbicort 160 mcg-4.5 mcg/actuation HFA aerosol inhaler RxNorm: 9964191 2 Puff(s) INH BID No Stop Date Active Alcohol Prep Pads RxNorm: 143330 1 Patch TOP QAM 019 2019 Inactive Ventolin HFA 90 mcg/actuation aerosol inhaler RxNorm: 807520 2 Puff(s) INH QID 019 2019 Inactive Please do not fill early. Please do not auto refill. This refill negates all other refills of this medication True Metrix Glucose Test Strip RxNorm: 1 Test Strips Miscellaneous QAM 019 2019 Inactive 100/container atorvastatin 40 mg tablet RxNorm: 145964 1 Tablet(s) Oral every day 019 2019 Inactive buspirone 7.5 mg tablet RxNorm: 683942 1 Tablet(s) PO BID 019 2020 Inactive This refill negates all other refills of this medication hydrochlorothiazide 12.5 mg tablet RxNorm: 295588 1 Tablet(s) PO QAM 019 2019 Inactive levmetamfetamine 50 mg nasal inhaler RxNorm: 1 Unit(s) NASAL Q3-4H Do not use more than every 3 hours or 8 times/24hours 019 2021 Inactive Please do not auto refill. This refill negates all other refills of this medication Ventolin HFA 90 mcg/actuation aerosol inhaler RxNorm: 391963 2 Puff(s) INH QID 019 2018 Inactive Please do not fill early. Please do not auto refill. This refill negates all other refills of this medication Singulair 10 mg tablet RxNorm: 017966 1 Tablet(s) PO daily 019 2019 Inactive This refill negates all other refills of this medication cetirizine 10 mg tablet RxNorm: 5978724 1 Tablet(s) PO daily 019 2019 Inactive This refill negates all other refills of this medication. Please do not auto refill levothyroxine 50 mcg tablet RxNorm: 431679 1 Tablet(s) PO daily 019 2019 Inactive This refill negates all other refills of this medication diclofenac sodium 75 mg tablet,delayed release RxNorm: 467747 1 Tablet(s) PO BID 019 2019 Inactive This refill negates all other refills of this medication ranitidine 150 mg tablet RxNorm: 434907 1 Tablet(s) PO BID 019 2018 Inactive This refill negates all other refills of this medication Calcium 600-D3 Plus (mag-zinc) 600 mg calcium-800 unit-50 mg tablet RxNorm: 1 Tablet(s) PO daily take an additonal tablet for itching. 019 2018 Inactive This refill negates all other refills of this medication albuterol sulfate 2.5 mg/3 mL (0.083 %) solution for nebulization RxNorm: 414571 1 Vial INH QID 019 2018 Inactive 60/box. This refill negates all other refills of this medication. Please do not fill early. Please do not auto refill. lisinopril 2.5 mg tablet RxNorm: 694672 1 Tablet(s) PO daily 019 2019 Inactive gabapentin 300 mg capsule RxNorm: 043674 1 Capsule(s) PO TID 019 2019 Inactive atorvastatin 20 mg tablet RxNorm: 374153 1 Tablet(s) PO QHS 019 2018 Inactive This refill negates all other refills of this medication TRUEplus Lancets 30 gauge RxNorm: 1 Lancets Miscellaneous QAM 019 2018 Inactive 100/box gabapentin 300 mg capsule RxNorm: 270691 1 Capsule(s) PO TID 019 2018 Inactive Flintstones Complete (iron) 18 mg iron chewable tablet RxNorm: 1 Tablet(s) PO daily 019 2021 Inactive This refill negates all other refills of this medication gabapentin 300 mg capsule RxNorm: 807903 1 Capsule(s) PO TID as needed 019 2018 Inactive True Metrix Glucose Test Strip RxNorm: 1 Test Strips Miscellaneous QAM 019 2018 Inactive 100/container Alcohol Prep Pads RxNorm: 811348 1 Patch TOP QAM 2018 Inactive TRUEplus Lancets 30 gauge RxNorm: 1 Lancets Miscellaneous QAM 019 2018 Inactive 100/box lisinopril 2.5 mg tablet RxNorm: 810638 1 Tablet(s) PO daily 019 2018 Inactive ranitidine 150 mg tablet RxNorm: 777465 1 Tablet(s) PO BID 019 2018 Inactive This refill negates all other refills of this medication albuterol sulfate 2.5 mg/3 mL (0.083 %) solution for nebulization RxNorm: 116799 1 Vial INH QID 019 2018 Inactive [...] this medication gabapentin 300 mg capsule RxNorm: 102600 1 Capsule(s) PO TID as needed 019 2018 Inactive atorvastatin 20 mg tablet RxNorm: 879807 1 Tablet(s) PO QHS 019 2018 Inactive This refill negates all other refills of this medication trazodone 50 mg tablet RxNorm: 156865 1 Tablet(s) PO QHS 019 2018 Inactive This refill negates all other refills of this medication Ventolin HFA 90 mcg/actuation aerosol inhaler RxNorm: 536973 2 Puff(s) INH QID 019 2018 Inactive Please do not fill early. Please do not auto refill. This refill negates all other refills of this medication Calcium 600-D3 Plus 600 mg calcium-800 unit-50 mg tablet RxNorm: 1 Tablet(s) PO daily take an additonal tablet for itching. 019 2018 Inactive This refill negates all other refills of this medication Singulair 10 mg tablet RxNorm: 523409 1 Tablet(s) PO daily 019 2018 Inactive This refill negates all other refills of this medication buspirone 7.5 mg tablet RxNorm: 325612 1 Tablet(s) PO BID 019 2018 Inactive This refill negates all other refills of this medication diclofenac sodium 75 mg tablet,delayed release RxNorm: 559028 1 Tablet(s) PO BID 019 2018 Inactive This refill negates all other refills of this medication hydrochlorothiazide 12.5 mg tablet RxNorm: 148158 1 Tablet(s) PO QAM 019 2018 Inactive metoprolol succinate ER 50 mg tablet,extended release 24 hr RxNorm: 975527 1 Tablet(s) PO daily 019 2018 Inactive This refill negates all other refills of this medication levothyroxine 50 mcg tablet RxNorm: 126424 1 Tablet(s) PO daily 019 2018 Inactive This refill negates all other refills of this medication cetirizine 10 mg tablet RxNorm: 1796286 1 Tablet(s) PO daily 019 2018 Inactive This refill negates all other refills of this medication. Please do not auto refill Flintstones Complete (iron) 18 mg iron chewable tablet RxNorm: 1 Tablet(s) PO daily 019 2018 Inactive This refill negates all other refills of this medication buspirone 7.5 mg tablet RxNorm: 750554 1 Tablet(s) PO BID 2018 Inactive cetirizine 10 mg tablet RxNorm: 1818367 1 Tablet(s) PO daily 2018 Inactive Guaiasorb DM 10 mg-100 mg/5 mL oral liquid RxNorm: 974640 10 Milliliter(s) PO As needed every 4 hr 2018 Inactive Vicks Vaporub 4.7 %-1.2 %-2.6 % topical ointment RxNorm: 4876846 1 Application TOP TID 2018 Inactive levmetamfetamine 50 mg nasal inhaler RxNorm: 1 Unit(s) NASAL Q3-4H 2017 Inactive sertraline 50 mg tablet RxNorm: 733241 1 Tablet(s) PO daily 2018 Inactive Please note dose trazodone 50 mg tablet RxNorm: 727749 1 Tablet(s) PO QHS 2018 Inactive sertraline 50 mg tablet RxNorm: 074564 1 Tablet(s) PO daily 2017 Inactive amoxicillin 500 mg tablet RxNorm: 338783 1 Tablet(s) PO Q12H 2017 Inactive albuterol sulfate 2.5 mg/3 mL (0.083 %) solution for nebulization RxNorm: 860006 1 Vial INH QID 2018 Inactive 60/box. Please do not fill early. Please do not auto refill. Prozac 10 mg capsule RxNorm: 893945 1 Capsule(s) PO daily 2017 Inactive buspirone 7.5 mg tablet RxNorm: 210878 1 Tablet(s) PO BID 2018 Inactive gabapentin 300 mg capsule RxNorm: 753491 1 Capsule(s) PO TID as needed 2018 Inactive hydrochlorothiazide 12.5 mg tablet RxNorm: 480683 1 Tablet(s) PO QAM 2019 Inactive ranitidine 150 mg tablet RxNorm: 453357 1 Tablet(s) PO BID 018 2018 Inactive Macrobid 100 mg capsule RxNorm: 643496 1 Capsule(s) PO Q12H 018 2017 Inactive Singulair 10 mg tablet RxNorm: 651430 1 Tablet(s) PO daily 018 2018 Inactive Ventolin HFA 90 mcg/actuation aerosol inhaler RxNorm: 9843445 2 Puff(s) INH QID 018 2018 Inactive Singulair 10 mg tablet RxNorm: 899129 1 Tablet(s) PO daily 018 2017 Inactive buspirone 7.5 mg tablet RxNorm: 694349 1 Tablet(s) PO BID 018 2017 Inactive Prozac 10 mg capsule RxNorm: 352137 1 Capsule(s) PO daily 018 2017 Inactive diclofenac sodium 75 mg tablet,delayed release RxNorm: 656028 1 Tablet(s) PO BID 018 2017 Inactive lisinopril 2.5 mg tablet RxNorm: 666856 1 Tablet(s) PO daily 018 2017 Inactive Neilmed Pediatric Sinus Rinse Refill packet RxNorm: 1 Unit Dose NASAL PRN 018 2021 Inactive metoprolol succinate ER 50 mg tablet,extended release 24 hr RxNorm: 344714 1 Tablet(s) PO daily 018 2017 Inactive levothyroxine 50 mcg tablet RxNorm: 003155 1 Tablet(s) PO daily 018 2017 Inactive TRUEplus Lancets 30 gauge RxNorm: 1 Lancets Miscellaneous QAM 018 2017 Inactive 100/box Ventolin HFA 90 mcg/actuation aerosol inhaler RxNorm: 162718 2 Puff(s) INH QID 018 2017 Inactive Aleve 220 mg capsule RxNorm: 5736014 1 Capsule(s) PO BID 018 2018 Inactive ranitidine 150 mg tablet RxNorm: 860315 1 Tablet(s) PO BID 018 2017 Inactive gabapentin 300 mg capsule RxNorm: 995020 1 Capsule(s) PO TID as needed 018 2017 Inactive atorvastatin 20 mg tablet RxNorm: 004847 1 Tablet(s) PO QHS 018 2017 Inactive True Metrix Glucose Test Strip RxNorm: 1 Test Strips Miscellaneous QAM 018 2017 Inactive 50/container Calcium 600-D3 Plus 600 mg calcium-800 unit-50 mg tablet RxNorm: 1 Tablet(s) PO daily take an additonal tablet for itching. 018 2017 Inactive hydrochlorothiazide 12.5 mg tablet RxNorm: 423344 1 Tablet(s) PO QAM 018 2017 Inactive Flintstones Complete (iron) 18 mg iron chewable tablet RxNorm: 1 Tablet(s) PO daily 018 2017 Inactive True Metrix Glucose Meter RxNorm: miscellaneous 019 2018 Inactive sertraline 50 mg tablet RxNorm: 139678 1 Tablet(s) PO daily 020 2019 Inactive loperamide 2 mg tablet RxNorm: 038720 oral 019 2018 Inactive d-mannose oral powder RxNorm: PO 018 2021 Inactive Symbicort 160 mcg-4.5 mcg/actuation HFA aerosol inhaler RxNorm: 1854371 2 Puff(s) INH BID 019 2018 Inactive Medication Administered No Medication Administered data Procedures Procedure Codes Date Patient Health Questionnaire CPT-4: DPHQ Electrocardiogram CPT-4: 72316 06/24/2023 Urinalysis, dip stick CPT-4: 94516 05/04/2023 [place]any Assessment CPT-4: DSWA 01/02 Fall Risk Assessment CPT-4: DFRA 01/27/2023 Hypertension CPT-4: HTN 01/27/2023 Patient Health Questionnaire CPT-4: DPHQ Pain Screening CPT-4: PAS 2022 Tobacco Assessment/Screening CPT-4: TCA Hypertension CPT-4: HTN 08/17/2022 [place] Fany Assessment CPT-4: DSWA 04/02 Patient Health [...] CPT-4: VACP Fall Risk Assessment SNOMED CT: 86160046 4 CPT-4: DFRA01/13/2021emmes Fany AssessmentCPT-4: DSWA12/17/2020Urinalysis, dip stickCPT-4: 082814509/24/2020Patient Health QuestionnaireCPT-4: DPHQ 08/19/2020ElectrocardiogramCPT-4: 860242305/14/2020Tobacco Assessment/Screening CPT-4: TCA01/01/2020Fall Risk AssessmentSNOMED CT: 333052352 CPT-4: DFRA01/01/2020Functional AssessmentCPT-4: DFA01/01/2020Semmes Fany AssessmentCPT-4: DSWA11/28/2019Patient Health QuestionnaireCPT-4: DPHQ11/28/2019 [place] F[place] AssessmentCPT-4: DSWA10/17/2019HypertensionCPT-4: HTN10/17/[address]: 729005778 CPT-4: DFRA09/19/2019Functional AssessmentCPT-4: DFA111/20/2018Urinalysis, dip stickCPT-4: 0268693Tobacco Assessment/ScreeningCPT-4: TCA05/24/2019 Patient Health QuestionnaireCPT-4: DPHQ05/24/2019AHA/REBECCA Classification AssessmentCPT-4: DAHA04/25/2019Controlled Substance ReportCPT-4: CTRSU04/25/2019 Urinalysis, dip stickCPT-4: 5220433Urinalysis, dip stickCPT-4: 84235 03/28/20193569F1A-TeyxiifhzcaonlmMAV-1: 37765JrymbmpZ0W-FhsifcyoyqamlyvWHU-5: 88376 IykfxghN8B-JwvxejaupmpssobYIB-1: 69551CftubuzH0P-JjkmkqttokkdyeuGMV-1: 30244 IkhydnmU2E-EmbcfgfkgpezuksRSY-1: 28354IitfyetY6N-UqufsjnguagrijzQBU-6: 07371 QsoobrjT3Y-QevskraoncphlhpJHM-6: 07647SuhilskK9S-MpdtcwuvobuxoukITK-1: 20520 RcrbbazL9R-LhxcxrlxrhsqnyqGDT-9: 61722ZxhzmfqA3T-QirpsvyzsefphiiJWY-0: 95179 GxfbjtkX9S-QlhtbsawokeheqkQCG-3: 01882SyhhnydY9F-CvxdjjhxohpbpxxMGH-3: [address]: 861713312 CPT-4: U40PqhoufeV5L-AspkjhrklynfnbrWVV-1: 12981Nywpndp Reason For Visit Reason For Visit Effective Dates Notes established patient visit 10/21/2023 Interim health update 10/21/2023 diabetes mellitus 10/21/2023 dermatologic complaint 10/21/2023 Encounters Encounter Performer Location Location Address Codes Magdi e ([id number]) (EST PT) DETAILED [facility] VISIT Diagnosis: Type 2 diabetes mellitus with hyperglycemia, without long-term current use of insulin[ICD10: E11.65] Diagnosis: Impetigo[ICD10: L01.00] Diagnosis: Major depression, recurrent[ICD10: F33.9]Anna Bourgeois [id number] [place] [address] 42138XZH-5: 38347 10/21/2023 Plan of Care Planned Activity Notes Codes [...] hyperglycemia, without long-term current use of insulin Blood sugars reviewed with patient, testing TID, FBS, after lunch and evening, discussed need to test at minimun 2 hours after meal or before meals, most recent hgb a1c 5.6, which have been stable for past 3 years, patient encouraged to keep diary of total intake to monitor for patterns, continue ozempic and januvia, intolerance to metformin L01.00-684 Impetigo new onset will treat with amoxicillin and topical steroid cream (advised to keep away for eyes, nose, and mouth) F33.9-296.30 Major depression, recurrent mood stable PHQ 2 negative for depression 4Patient Education: Patient Medication XrwexbiEolcloqtg22/19/2024 Patient Education: LxzzttbnZolqrfckw50/19/2024ppointment: Anna Culver WPtel: [address] [place] [address] [id number]: Anna Culver WPtel: [address] [place] [address] [id number]: Anna Culver WPtel: [address] [place] [address] [id number]: Anna Culver WPtel: [address] [place] [address] [id number]: Anna Culver WPtel: [address] [place] [address] [id number]: Anna Culver WPtel: [phone] [place] [address] [id number]/ppointment: Anna Culver WPtel: [address] [place] [address] [id number]: Anna Culver WPtel: [address] [place] [address] [id number]/17/2021ppointment: Anna Culver WPtel: [address] [place] [address] [id number]: Chivo Bishop WPtel: [address] [place] [address] [id number]: Chivo Bishop WPtel: [address] [place] [address] [id number]: Mikey Nair WPtel: [facility] [id number]: Chivo Bishop WPtel: [address] [place] [address] [id number]: Chivo Bishop WPtel: [address] [place] [address] [id number]: Chivo Bishop WPtel: [address] [place] [address] USETV111/11/2020ppointment: Chivo Bishop WPtel: [address] [place] [address] USETV110/13/2020ppointment: Chivo Bishop WPtel: [address] [place] [address] USETV1ppointment: Chivo Bishop WPtel: [phone] [place] [address] FFDAFQ4306/10/2021ppointment: Anna Culver WPtel: [phone] [place] [address] USETV06/02/2021ppointment: Chivo Bishop WPtel: [phone] [place] [address] USETV05/20/2021ppointment: Anna Culver WPtel: [phone] [place] [address] USETV04/28/2021ppointment: Chivo Bishop WPtel: [phone] [place] [address] USETV04/15/2021ppointment: Anna Culver WPtel: [address] [place] [address] [id number]: Anna Culver WPtel: [phone] [place] [address] USET03/24/2021ppointment: Anna Culver WPtel: [address] [place] [address] USETV03/13/2021ppointment: Anna Culver WPtel: [phone] [place] [address] [id number]: Chivo Bishop WPtel: [address] [place] [address] [id number]: Anna Culver WPtel: [phone] [place] [address] USETV01/13/2021ppointment: Anna Culver WPtel: [phone] [place] [address] [id number]: Chivo Bishop WPtel: [phone] [place] [address] [address] [address] USETV11/28/2020ppointment: Anna Culver WPtel: [address] [place] [address] USETV11/24/2020ppointment: Anna Culver WPtel: [phone] [place] [address] [id number]: Anna Culver WPtel: [phone] [place] [address] [id number]: Anna Culver WPtel: [address] [place] [address] USETV110/26/2019Appointment: Anna Culver WPtel: [address] [place] [address] USETV110/19/2019Appointment: Anna Culver WPtel: [address] [place] [address] USETV1Appointment: Anna Culver WPtel: [address] [place] [address] USETV1Appointment: Gianna Birmingham [facility]: [address] [facility] [address] [id number]: Anna Culver WPtel: [phone] [place] [address] [id number]: Anna Culver WPtel: [phone] [place] [address] [id number]: Anna Culver WPtel: [phone] [place] [address] [id number]: Anna Culver WPtel: [address] [place] [address] [address] [address] [id number]: Anna Culver WPtel: [phone] [place] [address] [id number]: Anna Culver WPtel: [address] [place] [address] [id number]: Anna Culver WPtel: [address] [place] [address] [id number]: Anna Culver WPtel: [address] [place] [address] [id number]: Anna Culver WPtel: [address] [place] [address] [id number]: Anna Culver WPtel: [address] [place] [address] [id number]/20/2018Appointment: Sudha Hernadez WPtel: [address] [facility] [id number]: Sudha Hernadez WPtel: [address] [facility] [place] [id number]: Charlene Oropeza WPtel: [address] [facility] [place] [address] [id number]: Enedelia [id number]: Charlene Oropeza WPtel: [address] [facility] [id number]: Rasta Palafox WPtel: [address] [facility] [id number]: Rasta Palafox WPtel: [address] [facility] [id number]: Rasta Palafox WPtel: [address] [facility] [id number]: Rasta Palafox WPtel: [address] [facility] [id number]: Pending Gynecology Referral InformationReferral ProcessedReferral: Pending Pulmonology Referral InformationReferralProcessed Referral: Pending Psychiatry Referral InformationReferralInitiatedReferral: Pending Respiratory Services Referral InformationReferralInitiatedReferral: Pending Ophthalmology Referral InformationReferralInitiatedReferral: [facility] WPtel: [address] [place], [place] [id number] USWriter placed a call out to the patient to notify her that it has been recommended that she be seenby a urologist. Patient agreed to be seen, does not have a provider of choice and no transportationissues. [employer] faxed referral and clinical notes to [facility] in [place], [place] near the patient's home. Patient to [...] seen and prefers a provider in the [place] or [facility]. [employer] placed a call out to everyone listed in the area and the only location that was able to accept the patient's insurance was [facility] [address] [place] [address] and spoke with Maylin. Maylin asked that the patient's referral, face sheet and visit notes be faxed to . [employer] faxed over requested documents. Patient appointment confirmation letter generated and mailed to her home address. Patient to call to schedule an appointment.ProcessedReferral: [facility] WPtel: [address] [facility] [address] [id number] USPatient notified that it has been advised that she be seen by Neurology. Patient agreed to be seen and prefers to be seen by a provider in the [place], [place] area. Patient denies any concerns with transportation, and prefers to schedule her own appointment. [employer] placed a [facility] to [facility] [...] hyperglycemia, without long-term current use of insulin Blood sugars reviewed with patient, testing TID, FBS, after lunch and evening, discussed need to test at minimun 2 hours after meal or before meals, most recent hgb a1c 5.6, which have been stable for past 3 years, patient encouraged to keep diary of total intake to monitor for patterns, continue ozempic and januvia, intolerance to metformin L01.00-684 Impetigo new onset will treat with amoxicillin and topical steroid cream (advised to keep away for eyes, nose, and mouth) F33.9-296.30 Major depression, recurrent mood stable PHQ 2 negative for tmafdxiurp14/19/2024 Medical Equipment No Medical Equipment data Advance Directives No Advance Directive data
--- OUTSIDE RECORDS SUMMARY | 2024-01-03 23:28 | XMS_ITS | CCD ---
Author Name Leena Culver NP Address [address] [place] [address] [address] [place] [address] Phone Organization [facility] Phone Care Team Providers Care Die Developer Name Role Phone Anna Culver NP Primary Care Provider Unav ailable Unavailable Chronic Care Management Unavaila ble Summary Purpose DataExchange Insurance Providers Payer name Policy type / Coverage type Covered green party ID Effective Begin Date Effective End Date SUKI MAYO [id number] Unknown Unknown Family history Mother Diagnosis Age [...] 05/31/2018 Education level Unknown Some High School 10th05/31/20184511VdvnvkyoolPbfxoawEyqnsqyiuz59/29/2018Tobacco historySNOMED CT: [id number] never smoked or chewed [id number]/31/2018Alcohol historySNOMED CT: 296911765Qtmmd drinks plxfzyu9805/31/2018Has the patient ever used illegal drugs? UnknownHas never used illegal drugs05/31/2018DNR Order/ Advanced Directive UnknownFull Code05/31/2018 Allergies, Adverse Reactions, Alerts Substance Reaction Codes Entered Date Inactivated Date Status OxyContin itch, RxNorm: 160445 01/13/2021 No Inactive Da te Active *No known food allergies Zbtstoq3409/06/2018No Inactive DateActiveMethylprednisolonehivesRxNorm: 6902 09/06/2018No Inactive DateActive Problems Condition Codes Effective Dates Condition St atus Hypertensive heart disease without heart failure ICD-10: I11.9 ICD-9: 402.9003/ctiveType 2 diabetes mellitus with peripheral neuropathy ICD-10: E11.42 ICD-9: 250.6002/ActiveUpper respiratory infectionICD-10: J06.9 ICD-9: 465.912/ctiveEncounter for immunizationICD-10: Z23 ICD-9: V04.8111/ctiveRight foot painICD-10: M79.671 ICD-9: 729.511/ctiveType 2 diabetes mellitus with hyperglycemia, without long-term current use of insulinICD-10: E11.65 ICD-9: 250.0011/ctiveAdult BMI 50.0-59.9 kg/sq mICD-10: Z68.43 ICD-9: V85.4308ActiveMajor depression, recurrentICD-10: F33.9 ICD-9: 296.3009/ctiveAllergic rhinitisICD-10: J30.9 ICD-9: 477.903/ctiveHyperlipidemia, mixedICD-10: E78.2 ICD-9: [...] medical examination with abnormal findingsICD-10: Z00.01 ICD-9: V70.004/13/2021Resolved(Z12.11-V76.51) Encounter for screening for malignant neoplasm of colonICD-10: Z12.11 ICD-9: V76.5107/Resolved(Z12.31-V76.12) Encounter for screening mammogram for malignant neoplasm of breastICD-10: Z12.31 ICD-9: V76.1207/Resolved(Z12.4-V76.2) Encounter for screening for malignant neoplasm of cervixICD-10: Z12.4 ICD-9: V76.207/Resolved(Z13.31-V79.0) Encounter for screening for depressionICD-10: Z13. ICD-9: V79.004/1ResolvedAnorexiaICD-10: R63.0 ICD-9: 783.003/1ResolvedBlisterICD-10: T14.8XXA ICD-9: 919.1ResolvedChronic kidney disease, stage 2 (mild)ICD-10: N18.2 ICD-9: 585.2011ResolvedCOVID-19 virus RNA test result positive at limit of detectionICD-10: U07.1 ICD-9: 079.8909/1ResolvedDiarrheaICD-10: R19.7 ICD-9: 787.9111/1ResolvedDyspnea, unspecifiedICD-10: R06.00 ICD-9: 786.0905/06/2019ResolvedElevated liver enzymesICD-10: R74.8 ICD-9: 790.504/1ResolvedEncounter for screening, unspecifiedICD-10: Z13.9 ICD-9: V82.912ResolvedFamily history of seizuresICD-10: Z84.89 ICD-9: V19.8071ResolvedHyperlipidemia, unspecifiedICD-10: E78.5 ICD-9: 272.408ResolvedLong term (current) use of non-steroidal anti- inflammatories (NSAID)ICD-10: Z79.1 ICD-9: V58.6409ResolvedPatient Not SeenICD-10: UXZ.01 ICD-9: XZ0.107/ResolvedPatient not seenICD-10: UXZ.01 ICD-9: UXZ.0112/1ResolvedSyncope and collapseICD-10: R55 ICD-9: 780.ActiveUrinary retention with incomplete bladder emptying ICD-10: R33.9 ICD-9: 788.41ActiveApnea, not elsewhere classifiedICD-10: R06.81 ICD-9: 786.0305InactiveChest pain, unspecifiedICD-10: R07.9 ICD-9: 786.5002InactiveChronic kidney disease, unspecifiedICD-10: N18.9 ICD-9: 585.909/InactiveEncounter for immunizationICD-10: Z23 ICD-9: V03.907InactiveEncounter for preprocedural cardiovascular examinationICD-10: Z01.810 ICD-9: V72.8106/InactiveHeadacheICD-10: R51 ICD-9: 784.001InactiveOther intermediate project manager (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ICD-10: Z79.899 ICD-9: V58.6907InactiveType 2 [...] Fill Instructions amoxicillin 250 mg capsule RxNorm: 765398 Take 1 Capsule(s) Oral three times a day 023 2022 Inactive Januvia 100 mg tablet RxNorm: 208302 Take 1 Tablet(s) Oral every day 023 2023 Active amoxicillin 500 mg tablet RxNorm: 682133 Take 1 Tablet(s) Oral three times a day 023 2022 Inactive Ozempic 1 mg/dose (4 mg/3 mL) subcutaneous pen injector RxNorm: 9161654 INJECT 1 UNITS DOSE SUBCUTANEOUSLY ON TUESDAY OF EACH WEEK 023 2023 Active MED IS ON B/O omeprazole 40 mg capsule,delayed release RxNorm: 222095 Take 1 Capsule(s) Oral HS 023 2022 Inactive Januvia 50 mg tablet RxNorm: 163660 Take 1 Tablet(s) Oral two times a day 023 2023 Inactive famotidine 20 mg tablet RxNorm: 328666 TAKE 1 TABLET BY MOUTH EACH MORNING 023 2023 Active Januvia 25 mg tablet RxNorm: 834241 Take 1 Tablet(s) Oral every day 023 2022 Inactive Ozempic 1 mg/dose (4 mg/3 mL) subcutaneous pen injector RxNorm: 0050753 INJECT 1 UNITS DOSE SUBCUTANEOUSLY ON TUESDAY OF EACH WEEK 023 2022 Inactive cetirizine 10 mg tablet RxNorm: 3742795 TAKE (1) TABLET BY MOUTH DAILY 023 2023 Inactive amoxicillin 500 mg tablet RxNorm: 083740 Take 1 Tablet(s) Oral two times a day 023 2022 Inactive omeprazole 40 mg capsule,delayed release RxNorm: 521247 Take 1 Capsule(s) Oral at bed time 023 2022 Inactive Easy Touch Alcohol Prep Pads RxNorm: 303572 USE EACH MORNING 023 2024 Active montelukast 10 mg tablet RxNorm: 190348 Take 1 Tablet(s) Oral every day 023 2022 Inactive gabapentin 300 mg capsule RxNorm: 168828 Take 1 Capsule(s) Oral three times a day 023 2022 Inactive metformin ER 500 mg 24 hr tablet,extended release RxNorm: 7976177 Take 1 Tablet(s) Oral every day with the evening meal 023 2022 Inactive famotidine 20 mg tablet RxNorm: 156168 Take 1 Tablet(s) Oral every morning 023 2022 Inactive levothyroxine 50 mcg tablet RxNorm: 370364 Take 1 Tablet(s) Oral every day 023 2023 [facility] hydrochlorothiazide 25 mg tablet RxNorm: 420189 Take 1 Tablet(s) Oral every day 023 [address] [facility]: Approval Requested atorvastatin 20 mg tablet RxNorm: 938508 Take 1 Tablet(s) Oral every night at bedtime 023 2023 Active Macrobid 100 mg capsule RxNorm: 864821 1 Capsule(s) Oral every 12 hours with food 023 2022 Inactive omeprazole 40 mg capsule,delayed release RxNorm: 283345 Take 1 Capsule(s) Oral every night at bedtime 023 2022 Inactive trazodone 50 mg tablet RxNorm: 739035 Administer 1 Tablet(s) Oral every night at bedtime 023 No Stop Date Active cholecalciferol (vitamin D3) 50 mcg (2,000 unit) tablet RxNorm: 031136 Take 1 Tablet(s) Oral every day 023 2023 Active Ozempic 1 mg/dose (4 mg/3 mL) subcutaneous pen injector RxNorm: 4279607 USE 1 UNIT DOSE SUBCUTANEOUSLY ON TUE OF EACH WEEK 023 2022 Inactive lisinopril 2.5 mg tablet RxNorm: 525233 Take 1 Tablet(s) Oral every day 023 [address] [facility]: Dr. Zapata Requested Ozempic 1 mg/dose (4 mg/3 mL) subcutaneous pen injector RxNorm: 1533623 USE 1 UNIT DOSE SUBCUTANEOUSLY ON TUE OF EACH WEEK 023 2022 Inactive omeprazole 40 mg capsule,delayed release RxNorm: 199319 Take 1 Capsule(s) Oral every night at bedtime 023 2022 Inactive gabapentin 300 mg capsule RxNorm: 789930 Take 1 Capsule(s) Oral three times a day 023 2022 Inactive montelukast 10 mg tablet RxNorm: 639771 Take 1 Tablet(s) Oral every day 023 2022 Inactive omeprazole 20 mg capsule,delayed release RxNorm: 872346 Take 1 Capsule(s) Oral every evening 022 2022 Inactive Alcohol Prep Pads RxNorm: 200560 USE EACH MORNING 022 2021 Inactive E11.42 clotrimazole 1 % topical cream RxNorm: 417260 Apply 1 Application Topical two times a day as needed apply to affected area(s) twice daily until healed 2021 Inactive Victoza 2-Sebastián 0.6 mg/0.1 mL (18 mg/3 mL) subcutaneous pen injector RxNorm: 735217 Inject 0.6-1.8 Milligram(s) Subcutaneous once a week Inject 0.6mg/0.1ml week one, 1.2mg/0.2ml week two, 1.8/0.3ml weekly thereafter 022 2021 Inactive ibuprofen 800 mg tablet RxNorm: 325206 Take 1 Tablet(s) Oral Q8H as needed for pain take with food No Stop Date Active Ozempic 1 mg/dose (4 mg/3 mL) subcutaneous pen injector RxNorm: 0825279 Take 1 Unit Dose Subcutaneous QWeek Tuesday 022 2021 Inactive lisinopril 2.5 mg tablet RxNorm: 329971 Take 1 Tablet(s) Oral every day 2021 Inactive lisinopril 2.5 mg tablet RxNorm: 744455 Take 1 Tablet(s) Oral every day 022 2022 Inactive hydrochlorothiazide 25 mg tablet RxNorm: 468721 Take 1 Tablet(s) Oral every day 2021 Inactive Ozempic 1 mg/dose (4 mg/3 mL) subcutaneous pen injector RxNorm: 0681967 Take 1 Unit Dose Subcutaneous QWeek 022 2021 Inactive famotidine 20 mg tablet RxNorm: 946113 Take 1 Tablet(s) Oral every morning 022 2021 Inactive levothyroxine 50 mcg tablet RxNorm: 445524 Take 1 Tablet(s) Oral every day 2021 Inactive atorvastatin 20 mg tablet RxNorm: 851824 Take 1 Tablet(s) Oral every night at bedtime 2021 Inactive Cleocin T 1 % lotion RxNorm: 937683 Take 2 Gram(s) Topical every day 022 2021 Inactive Cleocin T 1 % lotion RxNorm: 121772 Take 2 Gram(s) Topical every day 022 2021 Inactive Ozempic 1 mg/dose (4 mg/3 mL) subcutaneous pen injector RxNorm: 8348300 Take 1 Unit Dose Subcutaneous QWeek 07/182021 Inactive Ozempic 0.25 mg or 0.5 mg (2 mg/1.5 mL) subcutaneous pen injector RxNorm: 0323682 INJECT 0.5 MGS SUBCUTANEOUSLY EVERY WEEK 2021 Inactive omeprazole 20 mg capsule,delayed release RxNorm: 471187 Take 1 Capsule(s) Oral every evening 2021 Inactive levothyroxine 50 mcg tablet RxNorm: 583484 Take 1 Tablet(s) Oral every day 2021 Inactive atorvastatin 20 mg tablet RxNorm: 223825 Take 1 Tablet(s) Oral every night at bedtime 2021 Inactive This refill negates all other refills of this medication lisinopril 2.5 mg tablet RxNorm: 573111 Take 1 Tablet(s) Oral every day 2021 Inactive gabapentin 300 mg capsule RxNorm: 711135 Take 1 Capsule(s) Oral three times a day 2021 Inactive montelukast 10 mg tablet RxNorm: 042104 Take 1 Tablet(s) Oral every day 2021 Inactive Myrbetriq 50 mg tablet,extended release RxNorm: 0406619 1 Tablet(s) Oral every day No Stop Date Active cholecalciferol (vitamin D3) 50 mcg (2,000 unit) tablet RxNorm: 807593 Take 1 Tablet(s) Oral every day 2022 Inactive Ozempic 0.25 mg or 0.5 mg (2 mg/1.5 mL) subcutaneous pen injector RxNorm: 7197576 inject 0.5 milligrams subcutaneously every week 2021 Inactive Ozempic 0.25 mg or 0.5 mg (2 mg/1.5 mL) subcutaneous pen injector RxNorm: 5238894 Take 0.5 Capsule(s) Injection once a week 022 2021 Inactive omeprazole 20 mg capsule,delayed release RxNorm: 531042 Take 1 Capsule(s) Oral every evening 2020 Inactive Ozempic 0.25 mg or 0.5 mg (2 mg/1.5 mL) subcutaneous pen injector RxNorm: 3034007 Take 0.25 Milligram(s) Subcutaneous once a week 2021 Inactive Easy Touch Alcohol Prep Pads RxNorm: 885795 USE DIRECTED EACH MORNING 2021 Inactive Probiotic 10 billion cell capsule RxNorm: 6187673 Take 1 Capsule(s) Oral every day 2021 Inactive levothyroxine 50 mcg tablet RxNorm: 381416 Take 1 Tablet(s) Oral every day 2020 Inactive Acid Cook Dinner (famotidine) 20 mg tablet RxNorm: 130790 Take 1 Tablet(s) Oral every morning 2020 Inactive Heartburn Relief (famotidine) 10 mg tablet RxNorm: 869209 Take 1 Tablet(s) Oral QAM 2020 Inactive levothyroxine 50 mcg tablet RxNorm: 462531 Take 1 Tablet(s) Oral QD 2020 Inactive Singulair 10 mg tablet RxNorm: 005219 TAKE (1) TABLET BY MOUTH DAILY 2020 Inactive metformin 1,000 mg tablet RxNorm: 934794 1 Tablet(s) Oral two times a day 2021 Inactive lisinopril 2.5 mg tablet RxNorm: 539269 Take 1 Tablet(s) Oral every day 2020 Inactive hydrochlorothiazide 25 mg tablet RxNorm: 343145 Take 1 Tablet(s) Oral every day 2020 Inactive ondansetron 4 mg disintegrating tablet RxNorm: 092594 1 Tablet(s) Oral two times a day 021 2020 Inactive Sudafed 12 Hour 120 mg tablet,extended release RxNorm: 9911344 TAKE 1 TABLET BY MOUTH EVERY 12 HOURS NEEDED 2021 Inactive Heartburn Relief (famotidine) 10 mg tablet RxNorm: 254149 Take 1 Tablet(s) Oral every morning 021 2020 Inactive omeprazole 20 mg capsule,delayed release RxNorm: 105314 1 Capsule(s) Oral every evening 021 2020 Inactive sertraline 100 mg tablet RxNorm: 097956 2 Tablet(s) Oral every day 021 2020 Inactive levothyroxine 50 mcg tablet RxNorm: 969387 TAKE (1) TABLET BY MOUTH DAILY 021 2020 Inactive metformin 500 mg tablet RxNorm: 426607 1 Tablet(s) Oral two times a day take with 500mg to equal 1000mg 021 2020 Inactive gabapentin 300 mg capsule RxNorm: 985881 TAKE 1 CAPSULE BY MOUTH THREE TIMES A DAY 021 2020 Inactive lisinopril 2.5 mg tablet RxNorm: 139250 TAKE 1 TABLET BY MOUTH DAILY 021 2020 Inactive gabapentin 300 mg capsule RxNorm: 216854 TAKE 1 CAPSULE BY MOUTH THREE TIMES A DAY 021 2020 Inactive Singulair 10 mg tablet RxNorm: 307497 TAKE (1) TABLET BY MOUTH DAILY 021 2020 Inactive metformin 1,000 mg tablet RxNorm: 270271 1 Tablet(s) Oral two times a day 021 2020 Inactive atorvastatin 40 mg tablet RxNorm: 579950 1 Tablet(s) Oral every day 021 2020 Inactive omeprazole 20 mg capsule,delayed release RxNorm: 436933 1 Capsule(s) Oral every evening 021 2020 Inactive famotidine 10 mg tablet RxNorm: 040851 1 Tablet(s) Oral every morning 021 2020 Inactive Alcohol Prep Pads RxNorm: 818962 USE EACH MORNING 021 2020 Inactive omeprazole 20 mg capsule,delayed release RxNorm: 148997 1 Capsule(s) Oral two times a day 2021 Inactive omeprazole 20 mg capsule,delayed release RxNorm: 918297 TAKE 1 CAPSULE BY MOUTH EVERY DAY 2021 Inactive Macrobid 100 mg capsule RxNorm: 399952 1 Capsule(s) Oral every 12 hours with food 2020 Inactive omeprazole 20 mg capsule,delayed release RxNorm: 130845 1 Capsule(s) Oral two times a day 2021 Inactive metformin 1,000 mg tablet RxNorm: 835477 1 Tablet(s) Oral two times a day 2020 Inactive start on September 11, 2020 metformin 500 mg tablet RxNorm: 625005 1 Tablet(s) Oral two times a day take with 500mg to equal 1000mg 2019 Inactive gabapentin 300 mg capsule RxNorm: 340990 TAKE 1 CAPSULE BY MOUTH THREE TIMES DAILY 2020 Inactive cetirizine 10 mg tablet RxNorm: 1052553 TAKE (1) TABLET BY MOUTH DAILY 2020 Inactive metformin 500 mg tablet RxNorm: 980596 1 Tablet(s) Oral two times a day 2019 Inactive loperamide 2 mg tablet RxNorm: 189011 1 Tablet(s) Oral as needed take one tablet after each loose stool, maximum of 8 tablets in 24 hours 2021 Inactive Sudafed 12 Hour 120 mg tablet,extended release RxNorm: 4183413 TAKE 1 TABLET BY MOUTH EVERY 12 HOURS NEEDED 2019 Inactive hydrochlorothiazide 25 mg tablet RxNorm: 680420 TAKE (1) TABLET BY MOUTH EVERY DAY 2019 Inactive omeprazole 20 mg capsule,delayed release RxNorm: 254730 TAKE 1 CAPSULE BY MOUTH EVERY DAY 2020 Inactive metformin 500 mg tablet RxNorm: 837500 1 Tablet(s) Oral every day 05/ 2020 Inactive True Metrix Glucose Test Strip RxNorm: 1 Test Strips Miscellaneous two times a day as needed No Stop Date Active metformin 500 mg tablet RxNorm: 939762 1 Tablet(s) Oral every day 020 2019 Inactive diclofenac sodium 75 mg tablet,delayed release RxNorm: 097306 1 Tablet(s) PO BID 2021 Inactive This refill negates all other refills of this medication Sudafed 12 Hour 120 mg tablet,extended release RxNorm: 2628857 TAKE 1 TABLET BY MOUTH EVERY 12 HOURS NEEDED 020 2019 Inactive True Metrix Glucose Test Strip RxNorm: 1 Test Strips Miscellaneous every morning 020 2019 Inactive 100/container True Metrix Glucose Test Strip RxNorm: 1 Test Strips Miscellaneous QA 020 2019 Inactive 100/container loperamide 2 mg tablet RxNorm: 902530 1 Tablet(s) Oral as needed take one tablet after each loose stool, maximum of 8 tablets in 24 hours 020 2019 Inactive cetirizine 10 mg tablet RxNorm: 1585771 1 Tablet(s) PO daily 020 2019 Inactive loperamide 2 mg tablet RxNorm: 201038 1 Tablet(s) Oral as needed take one tablet after each loose stool, maximum of 8 tablets in 24 hours 020 2019 Inactive quetiapine 100 mg tablet RxNorm: 174284 1 Tablet(s) Oral every night at bedtime 2019 Inactive levothyroxine 50 mcg tablet RxNorm: 503470 1 Tablet(s) PO daily 020 2020 Inactive gabapentin 300 mg capsule RxNorm: 999366 1 Capsule(s) PO TID 020 2019 Inactive levothyroxine 50 mcg tablet RxNorm: 414024 1 Tablet(s) PO daily 020 2019 Inactive lisinopril 2.5 mg tablet RxNorm: 104386 1 Tablet(s) PO daily 2020 Inactive gabapentin 300 mg capsule RxNorm: 247455 1 Capsule(s) PO TID 2019 Inactive cetirizine 10 mg tablet RxNorm: 0729045 1 Tablet(s) PO daily 2019 Inactive Singulair 10 mg tablet RxNorm: 910185 1 Tablet(s) PO daily 2020 Inactive gentamicin 0.3 % eye drops RxNorm: 175739 1 Drop(s) ophthalmic (eye) four times a day 2019 Inactive gentamicin 0.3 % eye drops RxNorm: 394537 1 Drop(s) ophthalmic (eye) four times a day 2019 Inactive gentamicin 0.3 % eye drops RxNorm: 653529 1 Drop(s) ophthalmic (eye) four times a day 2019 Inactive hydrochlorothiazide 25 mg tablet RxNorm: 915819 1 Tablet(s) Oral every day 2019 Inactive Sudafed 12 Hour 120 mg tablet,extended release RxNorm: 0068082 TAKE (1) TABLET BY MOUTH EVERY 12 HOURS NEEDED 2019 Inactive loperamide 2 mg tablet RxNorm: 077670 1 Tablet(s) Oral as needed take one tablet after each loose stool, maximum of 8 tablets in 24 hours 2019 Inactive loperamide 2 mg tablet RxNorm: 658109 1 Tablet(s) Oral as needed take one tablet after each loose stool, maximum of 8 tablets in 24 hours 2019 Inactive atorvastatin 40 mg tablet RxNorm: 433604 1 Tablet(s) Oral every day 2020 Inactive quetiapine 100 mg tablet RxNorm: 060745 1 Tablet(s) Oral every night at bedtime 2019 Inactive sertraline 100 mg tablet RxNorm: 920477 1 Tablet(s) Oral 2019 Inactive omeprazole 20 mg capsule,delayed release RxNorm: 275253 1 Capsule(s) Oral every day 020 2019 Inactive amoxicillin 250 mg capsule RxNorm: 969439 1 Capsule(s) Oral three times a day 020 2019 Inactive multivitamin with iron-mineral tablet RxNorm: 1 Tablet(s) Oral every day 020 2021 Inactive cetirizine 10 mg tablet RxNorm: 0393551 1 Tablet(s) PO daily 2019 Inactive This refill negates all other refills of this medication. Please do not auto refill Singulair 10 mg tablet RxNorm: 416235 1 Tablet(s) PO daily 2019 Inactive This refill negates all other refills of this medication gabapentin 300 mg capsule RxNorm: 940086 1 Capsule(s) PO TID 2019 Inactive lisinopril 2.5 mg tablet RxNorm: 001345 1 Tablet(s) PO daily 2019 Inactive levothyroxine 50 mcg tablet RxNorm: 197685 1 Tablet(s) PO daily 2019 Inactive This refill negates all other refills of this medication hydrochlorothiazide 25 mg tablet RxNorm: 439034 1 Tablet(s) Oral every day 2019 Inactive fenugreek seed extract 500 mg capsule RxNorm: 1 Capsule(s) Oral three times a day 020 2021 Inactive Alcohol Prep Pads RxNorm: 397985 1 Patch TOP QAM 2020 Inactive loperamide 2 mg tablet RxNorm: 447310 1 Tablet(s) Oral as needed take one [...] 2019 Inactive hydrochlorothiazide 25 mg tablet RxNorm: 955528 1 Tablet(s) Oral every day 019 2019 Inactive Sudafed 12 Hour 120 mg tablet,extended release RxNorm: 6655213 1 Tablet(s) Oral every 12 hours as needed 2018 Inactive omeprazole 20 mg capsule,delayed release RxNorm: 991662 1 Capsule(s) Oral every day 019 2019 Inactive Sudafed 12 Hour 120 mg tablet,extended release RxNorm: 0011075 1 Tablet(s) Oral every 12 hours as needed 019 2018 Inactive pantoprazole 40 mg tablet,delayed release RxNorm: 376240 1 Tablet(s) Oral every day 2018 Inactive discontinue any other H2Blkr. and PPI albuterol sulfate 2.5 mg/3 mL (0.083 %) solution for nebulization RxNorm: 287512 1 Vial Inhalation every four hours as needed as needed for dyspnea 2019 Inactive 60/box. This refill negates all other refills of this medication. Please do not fill early. Please do not auto refill. Symbicort 160 mcg-4.5 mcg/actuation HFA aerosol inhaler RxNorm: 9387408 2 Puff(s) INH BID No Stop Date Active Alcohol Prep Pads RxNorm: 453685 1 Patch TOP QAM 019 2019 Inactive Ventolin HFA 90 mcg/actuation aerosol inhaler RxNorm: 619287 2 Puff(s) INH QID 019 2019 Inactive Please do not fill early. Please do not auto refill. This refill negates all other refills of this medication True Metrix Glucose Test Strip RxNorm: 1 Test Strips Miscellaneous QAM 019 2019 Inactive 100/container atorvastatin 40 mg tablet RxNorm: 763401 1 Tablet(s) Oral every day 019 2019 Inactive buspirone 7.5 mg tablet RxNorm: 008067 1 Tablet(s) PO BID 019 2020 Inactive This refill negates all other refills of this medication hydrochlorothiazide 12.5 mg tablet RxNorm: 707786 1 Tablet(s) PO QAM 019 2019 Inactive levmetamfetamine 50 mg nasal inhaler RxNorm: 1 Unit(s) NASAL Q3-4H Do not use more than every 3 hours or 8 times/24hours 019 2021 Inactive Please do not auto refill. This refill negates all other refills of this medication Ventolin HFA 90 mcg/actuation aerosol inhaler RxNorm: 778555 2 Puff(s) INH QID 019 2018 Inactive Please do not fill early. Please do not auto refill. This refill negates all other refills of this medication Singulair 10 mg tablet RxNorm: 560018 1 Tablet(s) PO daily 019 2019 Inactive This refill negates all other refills of this medication cetirizine 10 mg tablet RxNorm: 4250319 1 Tablet(s) PO daily 019 2019 Inactive This refill negates all other refills of this medication. Please do not auto refill levothyroxine 50 mcg tablet RxNorm: 329802 1 Tablet(s) PO daily 019 2019 Inactive This refill negates all other refills of this medication diclofenac sodium 75 mg tablet,delayed release RxNorm: 279276 1 Tablet(s) PO BID 019 2019 Inactive This refill negates all other refills of this medication ranitidine 150 mg tablet RxNorm: 931023 1 Tablet(s) PO BID 092018 Inactive This refill negates all other refills of this medication Calcium 600-D3 Plus (mag-zinc) 600 mg calcium-800 unit-50 mg tablet RxNorm: 1 Tablet(s) PO daily take an additonal tablet for itching. 2018 Inactive This refill negates all other refills of this medication albuterol sulfate 2.5 mg/3 mL (0.083 %) solution for nebulization RxNorm: 441624 1 Vial INH QID 2018 Inactive 60/box. This refill negates all other refills of this medication. Please do not fill early. Please do not auto refill. lisinopril 2.5 mg tablet RxNorm: 801581 1 Tablet(s) PO daily 2019 Inactive gabapentin 300 mg capsule RxNorm: 863987 1 Capsule(s) PO TID 2019 Inactive atorvastatin 20 mg tablet RxNorm: 297135 1 Tablet(s) PO QHS 2018 Inactive This refill negates all other refills of this medication TRUEplus Lancets 30 gauge RxNorm: 1 Lancets Miscellaneous QAM 2018 Inactive 100/box gabapentin 300 mg capsule RxNorm: 281905 1 Capsule(s) PO TID 2018 Inactive Flintstones Complete (iron) 18 mg iron chewable tablet RxNorm: 1 Tablet(s) PO daily 019 2021 Inactive This refill negates all other refills of this medication gabapentin 300 mg capsule RxNorm: 872965 1 Capsule(s) PO TID as needed 2018 Inactive True Metrix Glucose Test Strip RxNorm: 1 Test Strips Miscellaneous QAM 019 2018 Inactive 100/container Alcohol Prep Pads RxNorm: 701646 1 Patch TOP QAM 019 2018 Inactive TRUEplus Lancets 30 gauge RxNorm: 1 Lancets Miscellaneous QAM 019 2018 Inactive 100/box lisinopril 2.5 mg tablet RxNorm: 053130 1 Tablet(s) PO daily 019 2018 Inactive ranitidine 150 mg tablet RxNorm: 490358 1 Tablet(s) PO BID 019 2018 Inactive This refill negates all other refills of this medication albuterol sulfate 2.5 mg/3 mL (0.083 %) solution for nebulization RxNorm: 741891 1 Vial INH QID 019 2018 Inactive [...] this medication gabapentin 300 mg capsule RxNorm: 553972 1 Capsule(s) PO TID as needed 019 2018 Inactive atorvastatin 20 mg tablet RxNorm: 788662 1 Tablet(s) PO QHS 019 2018 Inactive This refill negates all other refills of this medication trazodone 50 mg tablet RxNorm: 557562 1 Tablet(s) PO QHS 019 2018 Inactive This refill negates all other refills of this medication Ventolin HFA 90 mcg/actuation aerosol inhaler RxNorm: 786599 2 Puff(s) INH QID 019 2018 Inactive Please do not fill early. Please do not auto refill. This refill negates all other refills of this medication Calcium 600-D3 Plus 600 mg calcium-800 unit-50 mg tablet RxNorm: 1 Tablet(s) PO daily take an additonal tablet for itching. 019 2018 Inactive This refill negates all other refills of this medication Singulair 10 mg tablet RxNorm: 533892 1 Tablet(s) PO daily 019 2018 Inactive This refill negates all other refills of this medication buspirone 7.5 mg tablet RxNorm: 002426 1 Tablet(s) PO BID 019 2018 Inactive This refill negates all other refills of this medication diclofenac sodium 75 mg tablet,delayed release RxNorm: 492164 1 Tablet(s) PO BID 019 2018 Inactive This refill negates all other refills of this medication hydrochlorothiazide 12.5 mg tablet RxNorm: 641427 1 Tablet(s) PO QAM 019 2018 Inactive metoprolol succinate ER 50 mg tablet,extended release 24 hr RxNorm: 524891 1 Tablet(s) PO daily 019 2018 Inactive This refill negates all other refills of this medication levothyroxine 50 mcg tablet RxNorm: 342983 1 Tablet(s) PO daily 019 2018 Inactive This refill negates all other refills of this medication cetirizine 10 mg tablet RxNorm: 4364726 1 Tablet(s) PO daily 019 2018 Inactive This refill negates all other refills of this medication. Please do not auto refill Flintstones Complete (iron) 18 mg iron chewable tablet RxNorm: 1 Tablet(s) PO daily 019 2018 Inactive This refill negates all other refills of this medication buspirone 7.5 mg tablet RxNorm: 639862 1 Tablet(s) PO BID 2018 Inactive cetirizine 10 mg tablet RxNorm: 7381543 1 Tablet(s) PO daily 2018 Inactive Guaiasorb DM 10 mg-100 mg/5 mL oral liquid RxNorm: 521247 10 Milliliter(s) PO As needed every 4 hr 2018 Inactive Vicks Vaporub 4.7 %-1.2 %-2.6 % topical ointment RxNorm: 2250798 1 Application TOP TID 018 2018 Inactive levmetamfetamine 50 mg nasal inhaler RxNorm: 1 Unit(s) NASAL Q3-4H 2017 Inactive sertraline 50 mg tablet RxNorm: 739221 1 Tablet(s) PO daily 2018 Inactive Please note dose trazodone 50 mg tablet RxNorm: 680233 1 Tablet(s) PO QHS 2018 Inactive sertraline 50 mg tablet RxNorm: 883112 1 Tablet(s) PO daily 018 2017 Inactive amoxicillin 500 mg tablet RxNorm: 303983 1 Tablet(s) PO Q12H 2017 Inactive albuterol sulfate 2.5 mg/3 mL (0.083 %) solution for nebulization RxNorm: 457176 1 Vial INH QID 2018 Inactive 60/box. Please do not fill early. Please do not auto refill. Prozac 10 mg capsule RxNorm: 909912 1 Capsule(s) PO daily 018 2017 Inactive buspirone 7.5 mg tablet RxNorm: 345300 1 Tablet(s) PO BID 2018 Inactive gabapentin 300 mg capsule RxNorm: 213270 1 Capsule(s) PO TID as needed 2018 Inactive hydrochlorothiazide 12.5 mg tablet RxNorm: 459029 1 Tablet(s) PO QAM 2018 Inactive ranitidine 150 mg tablet RxNorm: 077897 1 Tablet(s) PO BID 2018 Inactive Macrobid 100 mg capsule RxNorm: 305772 1 Capsule(s) PO Q12H 018 2017 Inactive Singulair 10 mg tablet RxNorm: 597549 1 Tablet(s) PO daily 018 2018 Inactive Ventolin HFA 90 mcg/actuation aerosol inhaler RxNorm: 6374798 2 Puff(s) INH QID 018 2018 Inactive Singulair 10 mg tablet RxNorm: 047631 1 Tablet(s) PO daily 018 2017 Inactive buspirone 7.5 mg tablet RxNorm: 708566 1 Tablet(s) PO BID 018 2017 Inactive Prozac 10 mg capsule RxNorm: 488171 1 Capsule(s) PO daily 018 2017 Inactive diclofenac sodium 75 mg tablet,delayed release RxNorm: 381881 1 Tablet(s) PO BID 018 2017 Inactive lisinopril 2.5 mg tablet RxNorm: 009007 1 Tablet(s) PO daily 018 2017 Inactive Neilmed Pediatric Sinus Rinse Refill packet RxNorm: 1 Unit Dose NASAL PRN 018 2021 Inactive metoprolol succinate ER 50 mg tablet,extended release 24 hr RxNorm: 488185 1 Tablet(s) PO daily 018 2017 Inactive levothyroxine 50 mcg tablet RxNorm: 744400 1 Tablet(s) PO daily 018 2017 Inactive TRUEplus Lancets 30 gauge RxNorm: 1 Lancets Miscellaneous QAM 018 2017 Inactive 100/box Ventolin HFA 90 mcg/actuation aerosol inhaler RxNorm: 469442 2 Puff(s) INH QID 018 2017 Inactive Aleve 220 mg capsule RxNorm: 6072695 1 Capsule(s) PO BID 018 2018 Inactive ranitidine 150 mg tablet RxNorm: 112452 1 Tablet(s) PO BID 018 2017 Inactive gabapentin 300 mg capsule RxNorm: 548375 1 Capsule(s) PO TID as needed 018 2017 Inactive atorvastatin 20 mg tablet RxNorm: 111951 1 Tablet(s) PO QHS 018 2017 Inactive True Metrix Glucose Test Strip RxNorm: 1 Test Strips Miscellaneous QAM 018 2017 Inactive 50/container Calcium 600-D3 Plus 600 mg calcium-800 unit-50 mg tablet RxNorm: 1 Tablet(s) PO daily take an additonal tablet for itching. 018 2017 Inactive hydrochlorothiazide 12.5 mg tablet RxNorm: 577493 1 Tablet(s) PO QAM 018 2017 Inactive Flintstones Complete (iron) 18 mg iron chewable tablet RxNorm: 1 Tablet(s) PO daily 018 2017 Inactive True Metrix Glucose Meter RxNorm: miscellaneous 019 2018 Inactive sertraline 50 mg tablet RxNorm: 535321 1 Tablet(s) PO daily 020 2019 Inactive loperamide 2 mg tablet RxNorm: 759222 oral 019 2018 Inactive d-mannose oral powder RxNorm: PO 018 2021 Inactive Symbicort 160 mcg-4.5 mcg/actuation HFA aerosol inhaler RxNorm: 0219446 2 Puff(s) INH BID 2018 Inactive Medication Administered No Medication Administered data Results Observation Observation Code Item Item Code Result Date S ervice Location COMPLETE CBC W/ DIFF WBC 84055 WBC 6690-2 7.7 K/ul 09/22/2023 [facility] [address], [place] [address]LDNZBILH CBC W/ DIFF [id number] M/uL09/22/2023 [facility] [address], [place] [address]PDGPJIIQ CBC W/ DIFF UNI78043Pfpfytoimc686-847.5 g/dL09/22/2023 [facility] [address], [place] [address]MYCEWZBL CBC W/ DIFF ECW89248Onatqjejfl4590-394.4 %09/22/2023 [facility] [address], [place] [address]SUDNPVIO CBC W/ DIFF [id number] fL09/22/2023 [facility] [address], [place] [address]TAUOIDMG CBC W/ DIFF AXV59961PMP107-058.5 pg09/22/2023 [facility] [address] [place] [address]IRWYOMXY CBC W/ DIFF TCD24606KAKX444-878.6 g/dL09/22/2023 [facility] [address] [address]OMQRLYGU CBC W/ DIFF ANK56963OZG719-787.6 %09/22/2023 [facility] [address] [place] [address]YKPAZAEN CBC W/ DIFF YEY19691Iykddnyi Hnjlu729-8080 K/uL09/22/2023 [facility] [address] [address]KJSPCNYP CBC W/ DIFF VQD82393HNL04168-21.1 fL09/22/2023 [facility] [address] [place] [address]WNSYBCWZ CBC W/ DIFF QII00943Ckincaexygj %770-863.7 %09/22/2023 [facility] [address] [place] [address]VEIQKBPE CBC W/ DIFF LPK02059Azefqojtclm %736-927.9 %09/22/2023 [facility] [address] [address]XLTONWPA CBC W/ DIFF GTA34650Rahacgjif %5905-56.8 %09/22/2023 [facility] [address] [place] [address]JPCDIKGK CBC W/ DIFF PYH34959Lvtjcysahcv %713-81.2 %09/22/2023 [facility] [address] [place] [address]IRDHNFUD CBC W/ DIFF MHB45648Xonjyasss%706-20.4 %09/22/2023 [facility] [address] [place] [address]ERMDLJBZ CBC W/ DIFF TAP99219Qodwumng Czkyulrhix912-42139 /ul 09/22/2023 [facility] [address] [place] [address]WGRZZNYE CBC W/ DIFF KXE52548Cmjoieva Pqumgvxkug09956-82781 /ul 09/22/2023 [facility] [address] [place] [address]PMBXCTPS CBC W/ DIFF MXG43671Acfrvxrk Ylizqbua410-6914 /ul 09/22/2023 [facility] [address], [place] [address]LHGJJFGO CBC W/ DIFF JUC14306Mhqtzuma Lokoxwhjld963-485 /ul 09/22/2023 [facility] [address], [place] [address]BMMHXCZI CBC W/ DIFF JGH14112Nefvbfuk Pqsbzkxg128-329 /ul09/22/2023 [facility] [address], [place] [address]QRCX 14 (METABOLIC PANEL)33271Zgchdtp8887-520 mg/dL09/21/2023 [facility] [address], [place] [address]BBSH 14 (METABOLIC PANEL)72771FAQ6833-312 mg/dL09/21/2023 [facility] [address] [place] [address]WNDK 14 (METABOLIC PANEL)79029Onfasvotbv9692-38.9 mg/dL09/21/2023 [facility] [address] [place] [address]OFDC 14 (METABOLIC PANEL)17881OAS/Creat Hhcvr2607-921.012 [facility] [address], [place] [address]JFXV 14 (METABOLIC PANEL)73513UVD Edjavymwm83655-774 mL/min/1.73m2 09/21/2023 [facility] [address] [place] [address]DDVR 14 (METABOLIC PANEL)95826Fhycvu3555-4208 mmol/L111/22/2022 [facility] [address] [place] [address]CRFZ 14 (METABOLIC PANEL)86543Nrtwwbwrw3239-49.3 mmol/L111/22/2022 [facility] [address], [place] [address]KSJR 14 (METABOLIC PANEL)79393Dccsjxie8816-3556 mmol/L111/22/2022 [facility] [address], [place] [address]LPFS 14 (METABOLIC PANEL)[address]Ujeib DA25848-647 mmol/L111/22/2022 [facility] [address], [place] [address]USCF 14 (METABOLIC PANEL)59418Fekxo Udy4184-958.3 mEq/L111/22/2022 [facility] [address], [place] [address]UEWA 14 (METABOLIC PANEL)00645Uutsxaafxd Serum Sooevcljqw86825-5507 mOsm/kg09/21/2023 [facility] [address], [place] [address]VZCV 14 (METABOLIC PANEL)609[address]Yalbjfm94064-08.7 g/dL09/21/2023 [facility] [address], [place] [address]FCLQ 14 (METABOLIC PANEL)68425Fpmuo Cquppdz6117-50.3 g/dL09/21/2023 [facility] [address], [place] [address]KDFE 14 (METABOLIC PANEL)97018Pyrqlmra2680-33.6 g/dL09/21/2023 [facility] [address], [place] [address]YQHW 14 (METABOLIC PANEL)80779Mekkajd/Globulin Pjdfy3174-69.0 09/21/2023 [facility] [address], [place] [address]QUYA 14 (METABOLIC PANEL)15736OCX PODW8206-1830.00 U/L111/22/2022 [facility] [address] [place] [address]MPNU 14 (METABOLIC PANEL)22607XITI/QDY6636-218 U/L111/22/2022 [facility] [address], [place] [address]HUIG 14 (METABOLIC PANEL)95319YJJN/UKA8571-451 U/L111/22/2022 [facility] [address], [place] [address]TLRE 14 (METABOLIC PANEL)30806Weuei Wjxchmudc0834-92.3 mg/dL 09/21/2023 [facility] [address], [place] [address]RMJP 14 (METABOLIC PANEL)56997Ejdqaaj28671-85.6 mg/dL09/21/2023 [facility] [address], [place] [address]KJWH 14 (METABOLIC PANEL)26283Gjrqcdsrc Epmodso22521-881.0 mg/dL 09/21/2023 [facility] [address] [place] [address] 455[address]X0I-XLKBUBLSSAAAETW8409-1Rawlh HGB E6Z84127-94.6 %09/21/2023 [facility] [address], [place] [address]K5B-ZKFFKLHJINCWQSA5875-7eAM92054-8241 mg/dL09/21/2023 [facility] [address] [place] [address] Procedures Procedure Codes Date Patient Health Questionnaire CPT-4: DPHQ Electrocardiogram CPT-4: 23607 06/24/2023 Urinalysis, dip stick CPT-4: 01269 05/04/2023 Herrick Fany Assessment CPT-4: DSWA 01/02 Fall Risk Assessment CPT-4: DFRA 01/27/2023 Hypertension CPT-4: HTN 01/27/2023 Patient Health Questionnaire CPT-4: DPHQ Pain Screening CPT-4: PAS 2022 Tobacco Assessment/Screening CPT-4: TCA Hypertension CPT-4: HTN 08/17/2022 Herrick Fany Assessment CPT-4: DSWA 04/02 Patient Health [...] CPT-4: VACP Fall Risk Assessment SNOMED CT: 41599439 4 CPT-4: DFRA01/13/2021emmes Fany AssessmentCPT-4: DSWA12/17/2020Urinalysis, dip stickCPT-4: 103413709/24/2020Patient Health QuestionnaireCPT-4: DPHQ 08/19/2020ElectrocardiogramCPT-4: 0298634Tobacco Assessment/Screening CPT-4: TCA01/01/2020Fall Risk AssessmentSNOMED CT: 431536155 CPT-4: DFRA01/01/2020Functional AssessmentCPT-4: DFA01/01/2020Semmes Fany AssessmentCPT-4: DSWA11/28/2019Patient Health QuestionnaireCPT-4: DPHQ11/28/2019 Herrick Fany AssessmentCPT-4: DSWA10/17/2019HypertensionCPT-4: HTN10/17/[address]: 754555219 CPT-4: DFRA09/19/2019Functional AssessmentCPT-4: DFA111/20/2018Urinalysis, dip stickCPT-4: 0722196Tobacco Assessment/ScreeningCPT-4: TCA05/24/2019 Patient Health QuestionnaireCPT-4: DPHQ05/24/2019AHA/REBECCA Classification AssessmentCPT-4: DAHA04/25/2019Controlled Substance ReportCPT-4: CTRSU04/25/2019 Urinalysis, dip stickCPT-4: 3407785Urinalysis, dip stickCPT-4: 74243 03/28/20198949X6U-BaazdgnrunwkidyEZB-2: 78315SnbdvjhI3D-YgtgffgsvmxwjowDDZ-4: 42494 RrsyingI9W-ZpsotcqxxwdkgfjVSV-2: 03290YsyosecX6X-BzioadesgiqtlxmUJA-5: 88801 JmoczliR6A-IxesmxhdjastmpqJWK-4: 80815AvkljieL6A-GqzsafgfbfnfpyyGAV-0: 05781 JijvvbnJ3Q-QmbuwsldbuglaotQCY-5: 14735SynvfjqC2G-QjuzvfdjuuzeakgQRI-7: 17104 SxlssmxW7Y-LmwsaazaizocrjbNKX-3: 32353GwhtvljN6A-DjuxtrzbcipdycoBNQ-8: 89741 VgpkpakZ6A-TtsjdqhajoouphzCSZ-4: 67580GnbwzqiC1L-IzujvpzthqvzdrfUZJ-1: [address]: 874663183 CPT-4: X57XfymtbaW6C-EtgogybaeilkylsKYV-9: 98981Imfitls Vital Signs Date Vital 09/20/2023 Blood Pressure 1: 102/78 Code: 8480-6 BMI: 51.4 Code: 80053-9 Heart Rate 1: 77 bpm Height: 4'11 Code: 8302-2 Respiratory Rate: 16 bpm SpO2: 98% Temperature: 36.3 (C) / 97.3 (F) Weight: 254 lbs 8 oz Code: 83056-7 Reason For Visit Reason For Visit Effective Dates Notes diabetes mellitus 09/20/2023 respiratory complaint 09/20/2023 HTN 09/20/2023 Interim health update 09/20/2023 Encounters Encounter Performer Location Location Address Codes Magdi e ([id number]) Home or Residence Vi sit Est Pt - Moderate Level, 40 mins Diagnosis: Type 2 diabetes mellitus with peripheral neuropathy[ICD10: E11.42] Diagnosis: Hypertensive heart disease without heart failure[ICD10: I11.9] Diagnosis: Upper respiratory infection[ICD10: J06.9]Anna Bourgeois [address] [place] [address]MZA-9: 94620 09/20/2023 Plan of Care Planned Activity Notes Codes Status Date Visit Plan: Visit time spent inv olved in medical discussion with patient, including obtaining history from patient, systems review, diagnostic and laboratory test review with patient. Assessment findings and plan reviewed with patient, including time to provide counseling, and education to patient Send copy of labs to Michell Matamoros [phone] E11.42-250.60 Type 2 diabetes mellitus with peripheral neuropathy Continues with varied blood sugars, elevations may be secondary to infectious process, continues with ozempic and januvia will check hgb a1c I11.9-402.90 Hypertensive heart disease without heart failure stable with current medications, will order labs J06.9-465.9 Upper respiratory infection will send prescription for Amoxicillin to local pharmacy 09/20/2023atient Education: Patient Medication WmnrezoRwqgmvxpx54/19/2023 Patient Education: QrmvsykeDatchvfhy09/19/2023atient Education: Hypertension Bvvbkhjix96/19/2023atient Education: XgmybwmSjrhsvpqw48/19/2023ppointment: Anna Culver WPtel: [address] [place], [place] [id number]/05/2022ppointment: Anna Culver WPtel: [address] [id number]: Anna Culver WPtel: [address] [address] [id number]: Anna Culver WPtel: [address] [place] [address] [place] [address] [id number]: Anna Culver WPtel: [phone] [place] [address] [id number]: Anna Culver WPtel: [phone] [place] [address] [id number]: Anna Culver WPtel: [address] [place] [address] [id number]: Anna Culver WPtel: [address] [place] [address] [id number]: Chivo Bishop WPtel: [address] [place] [address] [id number]: Chivo Bishop WPtel: [address] [place] [address] [id number]: Mikey Nair WPtel: [facility] [id number]: Chivo Bishop WPtel: [address] [place] [address] [id number]: Chivo Bishop WPtel: [phone] [place] [address] [place] [address] [id number]: Chivo Bishop WPtel: [address] [place] [address] [place] [address] USETV111/11/2020ppointment: Chivo Bishop WPtel: [phone] [place] [address] USETV110/13/2020ppointment: Chivo Bishop WPtel: [phone] [place] [address] USETV1ppointment: Chivo Bishop WPtel: [address] [place] [address] JACZOP7806/10/2021ppointment: Anna Culver WPtel: [address] [place] [address] USETV06/02/2021ppointment: Chivo Bishop WPtel: [address] [place] [address] USETV05/20/2021ppointment: Anna Culver WPtel: [address] [place] [address] USETV04/28/2021ppointment: Chivo Bishop WPtel: [address] [place] [address] USETV04/15/2021ppointment: Anna Culver WPtel: [address] [place] [address] [id number]: Anna Culver WPtel: [phone] [place] [address] USETV03/24/2021ppointment: Anna Culver WPtel: [phone] [place] [address] USETV03/13/2021ppointment: Anna Culver WPtel: [address] [place] [address] [id number]: Chivo Bishop WPtel: [phone] [place] [address] [place] [address] [id number]: Anna Culver WPtel: [phone] [place] [address] [address] [address] USETV04/ppointment: Anna Culver WPtel: [phone] [place] [address] [place] [address] [id number]: Chivo Bishop WPtel: [phone] [place] [address] [place] [address] USETV11/28/2020ppointment: Anna Culver WPtel: [address] [place] [address] [place] [address] USETV11/24/2020ppointment: Anna Culver WPtel: [address] [place] [address] [address] [address] [id number]: Anna Culver WPtel: [address] [place] [address] [place] [address] [id number]: Anna Culver WPtel: [address] [place] [address] [place] [address] USETV110/26/2019Appointment: Anna Culver WPtel: [address] [place] [address] [address] [place] [address] USETV110/19/2019Appointment: Anna Culver WPtel: [address] [place] [address] [address] [place] [address] USETV1Appointment: Anna Culver WPtel: [address] [place] [address] [place] [address] USETV1Appointment: Gianna Birmingham [facility]: [facility] [address] [id number] DUWGDQ0007/02/2020Appointment: Anna Culver WPtel: [address] [place] [address] [id number]: Anna Culver WPtel: [address] [place] [address] [id number]: Anna Culver WPtel: [phone] [place] [address] [id number]: Anna Culver WPtel: [phone] [place] [address] [id number]: Anna Culver WPtel: [phone] [place] [address] [id number]: Anna Culver WPtel: [address] [place] [address] [id number]: Anna Culver WPtel: [phone] [place] [address] [id number]: Anna Culver WPtel: [address] [place] [address] [id number]: Anna Culver WPtel: [phone] [place] [address] [id number]: Anna Culver WPtel: [address] [place] [address] [id number]/20/2018Appointment: Sudha Hernadez WPtel: [address] [facility] [id number] [id number]: Sudha Hernadez WPtel: [address] [facility] OxlrbmGI84389 [id number]: Charlene Oropeza WPtel: [address] [facility] PmkesnWK15976 [id number]: Danny, FoystcO87008/26/2019Appointment: Charlene Oropeza WPtel: [address] [facility] DwydygGC48576 [id number]: Daltonziggyt, Rasta WPtel: [address] [facility] YzmoayTO65421 [id number]: Hasenthilricht, Rasta WPtel: [address] [facility] [id number] [id number]: Daltonricht Rasta WPtel: [address] [facility] EppzjrTI08028 [id number]: Haupricht, Rasta WPtel: [address] [facility] [id number] [id number]: Pending Gynecology Referral InformationReferral ProcessedReferral: Pending Pulmonology Referral InformationReferralProcessed Referral: Pending Psychiatry Referral InformationReferralInitiatedReferral: Pending Respiratory Services Referral InformationReferralInitiatedReferral: Pending Ophthalmology Referral InformationReferralInitiatedReferral: [facility] WPtel: [address] [facility] [address] MinoaImbmhcfLD[address] USWriter placed a call out to the patient to notify her that it has been recommended that she be seenby a urologist. Patient agreed to be seen, does not have a provider of choice and no transportationissues. Painter Hand faxed referral and clinical notes to [facility] in [place], [place] near the patient's home. Patient to [...] seen and prefers a provider in the [place] or [place] area. Painter Hand placed a call out to everyone listed in the area and the only location that was able to accept the patient's insurance was [facility] [place] [address] and spoke with Maylin. Maylin asked that the patient's referral, face sheet and visit notes be faxed to . Painter Hand faxed over requested documents. Patient appointment confirmation letter generated and mailed to her home address. Patient to call to schedule an appointment.ProcessedReferral: [facility] WPtel: [address] [place], [place] [id number] USPatient notified that it has been advised that she be seen by Neurology. Patient agreed to be seen and prefers to be seen by a provider in the [place], [place] area. Patient denies any concerns with transportation, and prefers to schedule her own appointment. Painter Hand placed a call out to [facility] and spoke with [...] to provide counseling, and education to patient Send copy of labs to Michell Matamoros [phone] E11.42-250.60 Type 2 diabetes mellitus with peripheral neuropathy Continues with varied blood sugars, elevations may be secondary to infectious process, continues with ozempic and januvia will check hgb a1c I11.9-402.90 Hypertensive heart disease without heart failure stable with current medications, will order labs J06.9-465.9 Upper respiratory infection will send prescription for Amoxicillin to local gxwmxung78/19/2023 Medical Equipment No Medical Equipment data Advance Directives No Advance Directive data
--- OUTSIDE RECORDS SUMMARY | 2024-01-03 23:28 | XMS_ITS | CCD ---
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 [employer] Estate [employer] Manager Name Role Phone Palomo KING, Anna Primary Care Provider Unav ailable Unavailable Chronic Care Management Unavaila ble Summary Purpose DataExchange Insurance Providers Payer name Policy type / Coverage type Covered alliance party ID Effective Begin Date Effective End Date [facility] [id number] Unknown Unknown Family history Mother Diagnosis Age [...] 05/31/2018 Education level Unknown Some High School 10th05/31/20189490YtjijgyorsTaawjmpSwyhbwbfbk13/29/2018Tobacco historySNOMED CT: 309902950Cuv never smoked or chewed [id number]/31/2018Alcohol historySNOMED CT: 935099625Odhzi drinks [id number]/31/2018Has the patient ever used illegal drugs? UnknownHas never used illegal drugs05/31/2018DNR Order/ Advanced Directive UnknownFull Code05/31/2018 Allergies, Adverse Reactions, Alerts Substance Reaction Codes Entered Date Inactivated Date Status OxyContin itch, RxNorm: 291879 01/13/2021 No Inactive Da te Active *No known food allergies Giaadbg3009/06/2018No Inactive DateActiveMethylprednisolonehivesRxNorm: 6902 09/06/2018No Inactive DateActive Problems Condition Codes Effective Dates Condition St atus Encounter for immunization ICD-10: Z23 ICD-9: V04.8111/ctiveHypertensive heart disease without heart failure ICD-10: I11.9 ICD-9: 402.9003/ctiveRight foot painICD-10: M79.671 ICD-9: 729.511/ctiveType 2 diabetes mellitus with hyperglycemia, without long-term current use of insulinICD-10: E11.65 ICD-9: 250.0011/ctiveAdult BMI 50.0-59.9 kg/sq mICD-10: Z68.43 ICD-9: V85.4308ActiveMajor depression, recurrentICD-10: F33.9 ICD-9: 296.3009/ctiveType 2 diabetes [...] ICD-9: V70.905/09/2022InactiveAbnormal electrocardiogram [ECG] [EKG]ICD-10: R94.31 ICD-9: 794.3108/28/2018InactiveAbscessICD-10: L02.91 ICD-9: 682.907/InactiveAnkle sprainICD-10: S93.409A ICD-9: 845.0010/InactiveEncounter [...] UXZ.01 ICD-9: XZ0.107/ResolvedPatient not seenICD-10: UXZ.01 ICD-9: UXZ.01121ResolvedUpper respiratory infectionICD-10: J06.9 ICD-9: 465.908/1ResolvedSyncope and collapseICD-10: R55 ICD-9: 780.ActiveUrinary retention with incomplete bladder emptying ICD-10: R33.9 ICD-9: 788.2101ActiveApnea, not elsewhere classifiedICD-10: R06.81 ICD-9: 786.0305/10/2018InactiveChest pain, unspecifiedICD-10: R07.9 ICD-9: 786.5002/InactiveChronic kidney disease, unspecifiedICD-10: N18.9 ICD-9: 585.909/InactiveEncounter for immunizationICD-10: Z23 ICD-9: V03.907/InactiveEncounter for preprocedural cardiovascular examinationICD-10: Z01.810 ICD-9: V72.8106/InactiveHeadacheICD-10: R51 ICD-9: 784.001/10/2018InactiveOther 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 (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ICD-10: Z79.899 ICD-9: V58.6907/InactiveType 2 diabetes mellitus without complications ICD-10: E11.9 ICD-9: 250.0001InactiveWheezingICD-10: R06.2 ICD-9: 786.0711InactiveAbnormal urine findingICD-10: R82.90 ICD-9: 791.912/ResolvedAbrasion of toeICD-10: S90.416A ICD-9: 917.005/ResolvedPink eyeICD-10: H10.029 ICD-9: 372.0303/ResolvedRight wrist painICD-10: M25.531 ICD-9: 719.4308/09/2020ResolvedSinusitisICD-10: J32.9 ICD-9: 473.902/02/2020ResolvedSuperficial burn of multiple sites of right hand, subsequent encounterICD-10: T23.191D ICD-9: V58.8902/esolvedPolyneuropathy, unspecifiedICD-10: G62.9 ICD-9: 356.908ActiveFecal incontinenceICD-10: R15.9 ICD-9: 787.6003ActiveMixed incontinenceICD-10: N39.46 ICD-9: 788.3308Active Medications Medication Codes Instructions Start Date Stop Date Status Fill Instructions omeprazole 40 mg capsule,delayed release RxNorm: 905963 Take 1 Capsule(s) Oral HS 023 2022 Inactive Januvia 50 mg tablet RxNorm: 160735 Take 1 Tablet(s) Oral two times a day 023 2023 Inactive famotidine 20 mg tablet RxNorm: 814866 TAKE 1 TABLET BY MOUTH EACH MORNING 023 2023 Active Januvia 25 mg tablet RxNorm: 154438 Take 1 Tablet(s) Oral every day 023 2022 Inactive Ozempic 1 mg/dose (4 mg/3 mL) subcutaneous pen injector RxNorm: 3553682 INJECT 1 UNITS DOSE SUBCUTANEOUSLY ON TUESDAY OF EACH WEEK 023 2022 Inactive cetirizine 10 mg tablet RxNorm: 1921187 TAKE (1) TABLET BY MOUTH DAILY 023 2023 Inactive amoxicillin 500 mg tablet RxNorm: 402271 Take 1 Tablet(s) Oral two times a day 023 2022 Inactive omeprazole 40 mg capsule,delayed release RxNorm: 269135 Take 1 Capsule(s) Oral at bed time 023 2022 Inactive Easy Touch Alcohol Prep Pads RxNorm: 915500 USE EACH MORNING 023 2024 Active montelukast 10 mg tablet RxNorm: 170655 Take 1 Tablet(s) Oral every day 023 2022 Inactive gabapentin 300 mg capsule RxNorm: 079592 Take 1 Capsule(s) Oral three times a day 023 2022 Inactive metformin ER 500 mg 24 hr tablet,extended release RxNorm: 1322167 Take 1 Tablet(s) Oral every day with the evening meal 023 2022 Inactive famotidine 20 mg tablet RxNorm: 651799 Take 1 Tablet(s) Oral every morning 023 2022 Inactive levothyroxine 50 mcg tablet RxNorm: 529262 Take 1 Tablet(s) Oral every day 023 2023 [facility] Requested hydrochlorothiazide 25 mg tablet RxNorm: 013586 Take 1 Tablet(s) Oral every day 023 2023 [facility] Requested atorvastatin 20 mg tablet RxNorm: 073639 Take 1 Tablet(s) Oral every night at bedtime 023 2023 Active Macrobid 100 mg capsule RxNorm: 654859 1 Capsule(s) Oral every 12 hours with food 023 2022 Inactive omeprazole 40 mg capsule,delayed release RxNorm: 502875 Take 1 Capsule(s) Oral every night at bedtime 023 2022 Inactive trazodone 50 mg tablet RxNorm: 760932 Administer 1 Tablet(s) Oral every night at bedtime 023 No Stop Date Active cholecalciferol (vitamin D3) 50 mcg (2,000 unit) tablet RxNorm: 411652 Take 1 Tablet(s) Oral every day 023 2023 Active Ozempic 1 mg/dose (4 mg/3 mL) subcutaneous pen injector RxNorm: 2579721 USE 1 UNIT DOSE SUBCUTANEOUSLY ON TUE OF EACH WEEK 023 2022 Inactive lisinopril 2.5 mg tablet RxNorm: 135667 Take 1 Tablet(s) Oral every day 023 2022 [facility] Requested Ozempic 1 mg/dose (4 mg/3 mL) subcutaneous pen injector RxNorm: 3033305 USE 1 UNIT DOSE SUBCUTANEOUSLY ON WED OF EACH WEEK 023 2022 Inactive omeprazole 40 mg capsule,delayed release RxNorm: 188364 Take 1 Capsule(s) Oral every night at bedtime 023 2022 Inactive gabapentin 300 mg capsule RxNorm: 997629 Take 1 Capsule(s) Oral three times a day 023 2022 Inactive montelukast 10 mg tablet RxNorm: 494835 Take 1 Tablet(s) Oral every day 023 2022 Inactive omeprazole 20 mg capsule,delayed release RxNorm: 703848 Take 1 Capsule(s) Oral every evening 022 2022 Inactive Alcohol Prep Pads RxNorm: 156525 USE EACH MORNING 022 2021 Inactive E11.42 clotrimazole 1 % topical cream RxNorm: 058220 Apply 1 Application Topical two times a day as needed apply to affected area(s) twice daily until healed 2021 Inactive Victoza 2-Sebastián 0.6 mg/0.1 mL (18 mg/3 mL) subcutaneous pen injector RxNorm: 963398 Inject 0.6-1.8 Milligram(s) Subcutaneous once a week Inject 0.6mg/0.1ml week one, 1.2mg/0.2ml week two, 1.8/0.3ml weekly thereafter 022 2021 Inactive ibuprofen 800 mg tablet RxNorm: 721633 Take 1 Tablet(s) Oral Q8H as needed for pain take with food No Stop Date Active Ozempic 1 mg/dose (4 mg/3 mL) subcutaneous pen injector RxNorm: 6996944 Take 1 Unit Dose Subcutaneous QWeek Tuesday 022 2021 Inactive lisinopril 2.5 mg tablet RxNorm: 210756 Take 1 Tablet(s) Oral every day 022 2021 Inactive lisinopril 2.5 mg tablet RxNorm: 845147 Take 1 Tablet(s) Oral every day 022 08/01/ 2023 Inactive hydrochlorothiazide 25 mg tablet RxNorm: 919407 Take 1 Tablet(s) Oral every day 022 2021 Inactive Ozempic 1 mg/dose (4 mg/3 mL) subcutaneous pen injector RxNorm: 6695081 Take 1 Unit Dose Subcutaneous QWeek 022 2021 Inactive famotidine 20 mg tablet RxNorm: 242096 Take 1 Tablet(s) Oral every morning 2021 Inactive levothyroxine 50 mcg tablet RxNorm: 889591 Take 1 Tablet(s) Oral every day 022 2021 Inactive atorvastatin 20 mg tablet RxNorm: 468635 Take 1 Tablet(s) Oral every night at bedtime 2021 Inactive Cleocin T 1 % lotion RxNorm: 518199 Take 2 Gram(s) Topical every day 2021 Inactive Cleocin T 1 % lotion RxNorm: 382344 Take 2 Gram(s) Topical every day 2021 Inactive Ozempic 1 mg/dose (4 mg/3 mL) subcutaneous pen injector RxNorm: 2364045 Take 1 Unit Dose Subcutaneous QWeek 022 2021 Inactive Ozempic 0.25 mg or 0.5 mg (2 mg/1.5 mL) subcutaneous pen injector RxNorm: 6212588 INJECT 0.5 MGS SUBCUTANEOUSLY EVERY WEEK 2021 Inactive omeprazole 20 mg capsule,delayed release RxNorm: 053978 Take 1 Capsule(s) Oral every evening 2021 Inactive levothyroxine 50 mcg tablet RxNorm: 028607 Take 1 Tablet(s) Oral every day 022 2021 Inactive atorvastatin 20 mg tablet RxNorm: 927731 Take 1 Tablet(s) Oral every night at bedtime 2021 Inactive This refill negates all other refills of this medication lisinopril 2.5 mg tablet RxNorm: 537865 Take 1 Tablet(s) Oral every day 2021 Inactive gabapentin 300 mg capsule RxNorm: 053885 Take 1 Capsule(s) Oral three times a day 2021 Inactive montelukast 10 mg tablet RxNorm: 606154 Take 1 Tablet(s) Oral every day 2021 Inactive Myrbetriq 50 mg tablet,extended release RxNorm: 6032478 1 Tablet(s) Oral every day No Stop Date Active cholecalciferol (vitamin D3) 50 mcg (2,000 unit) tablet RxNorm: 236356 Take 1 Tablet(s) Oral every day 2022 Inactive Ozempic 0.25 mg or 0.5 mg (2 mg/1.5 mL) subcutaneous pen injector RxNorm: 3531697 inject 0.5 milligrams subcutaneously every week 2021 Inactive Ozempic 0.25 mg or 0.5 mg (2 mg/1.5 mL) subcutaneous pen injector RxNorm: 3857717 Take 0.5 Capsule(s) Injection once a week 2021 Inactive omeprazole 20 mg capsule,delayed release RxNorm: 799048 Take 1 Capsule(s) Oral every evening 2020 Inactive Ozempic 0.25 mg or 0.5 mg (2 mg/1.5 mL) subcutaneous pen injector RxNorm: 7817134 Take 0.25 Milligram(s) Subcutaneous once a week 2021 Inactive Easy Touch Alcohol Prep Pads RxNorm: 331897 USE DIRECTED EACH MORNING 2021 Inactive Probiotic 10 billion cell capsule RxNorm: 0387132 Take 1 Capsule(s) Oral every day 2021 Inactive levothyroxine 50 mcg tablet RxNorm: 826328 Take 1 Tablet(s) Oral every day 2020 Inactive Acid Electrical Logging Operator (famotidine) 20 mg tablet RxNorm: 309636 Take 1 Tablet(s) Oral every morning /11/ 2021 Inactive Heartburn Relief (famotidine) 10 mg tablet RxNorm: 943323 Take 1 Tablet(s) Oral QAM 021 2020 Inactive levothyroxine 50 mcg tablet RxNorm: 364779 Take 1 Tablet(s) Oral QD 021 2020 Inactive Singulair 10 mg tablet RxNorm: 380050 TAKE (1) TABLET BY MOUTH DAILY 2020 Inactive metformin 1,000 mg tablet RxNorm: 789785 1 Tablet(s) Oral two times a day 2021 Inactive lisinopril 2.5 mg tablet RxNorm: 920313 Take 1 Tablet(s) Oral every day 021 2020 Inactive hydrochlorothiazide 25 mg tablet RxNorm: 973829 Take 1 Tablet(s) Oral every day 2020 Inactive ondansetron 4 mg disintegrating tablet RxNorm: 748517 1 Tablet(s) Oral two times a day 021 2020 Inactive Sudafed 12 Hour 120 mg tablet,extended release RxNorm: 2262298 TAKE 1 TABLET BY MOUTH EVERY 12 HOURS NEEDED 2021 Inactive Heartburn Relief (famotidine) 10 mg tablet RxNorm: 432660 Take 1 Tablet(s) Oral every morning 021 2020 Inactive omeprazole 20 mg capsule,delayed release RxNorm: 552133 1 Capsule(s) Oral every evening 021 2020 Inactive sertraline 100 mg tablet RxNorm: 539798 2 Tablet(s) Oral every day 021 2020 Inactive levothyroxine 50 mcg tablet RxNorm: 410268 TAKE (1) TABLET BY MOUTH DAILY 021 2020 Inactive metformin 500 mg tablet RxNorm: 791056 1 Tablet(s) Oral two times a day take with 500mg to equal 1000mg 021 2020 Inactive gabapentin 300 mg capsule RxNorm: 844495 TAKE 1 CAPSULE BY MOUTH THREE TIMES A DAY 021 2020 Inactive lisinopril 2.5 mg tablet RxNorm: 216421 TAKE 1 TABLET BY MOUTH DAILY 021 2020 Inactive gabapentin 300 mg capsule RxNorm: 657477 TAKE 1 CAPSULE BY MOUTH THREE TIMES A DAY 021 2020 Inactive Singulair 10 mg tablet RxNorm: 880536 TAKE (1) TABLET BY MOUTH DAILY 021 2020 Inactive metformin 1,000 mg tablet RxNorm: 667927 1 Tablet(s) Oral two times a day 021 2020 Inactive atorvastatin 40 mg tablet RxNorm: 779596 1 Tablet(s) Oral every day 021 2020 Inactive omeprazole 20 mg capsule,delayed release RxNorm: 973795 1 Capsule(s) Oral every evening 2020 Inactive famotidine 10 mg tablet RxNorm: 243356 1 Tablet(s) Oral every morning 021 2020 Inactive Alcohol Prep Pads RxNorm: 433276 USE EACH MORNING 021 2020 Inactive omeprazole 20 mg capsule,delayed release RxNorm: 308975 1 Capsule(s) Oral two times a day 2021 Inactive omeprazole 20 mg capsule,delayed release RxNorm: 941175 TAKE 1 CAPSULE BY MOUTH EVERY DAY 2021 Inactive Macrobid 100 mg capsule RxNorm: 490566 1 Capsule(s) Oral every 12 hours with food 2020 Inactive omeprazole 20 mg capsule,delayed release RxNorm: 480420 1 Capsule(s) Oral two times a day 2021 Inactive metformin 1,000 mg tablet RxNorm: 187757 1 Tablet(s) Oral two times a day 2020 Inactive start on September 11, 2020 metformin 500 mg tablet RxNorm: 243138 1 Tablet(s) Oral two times a day take with 500mg to equal 1000mg 2019 Inactive gabapentin 300 mg capsule RxNorm: 645205 TAKE 1 CAPSULE BY MOUTH THREE TIMES DAILY 2020 Inactive cetirizine 10 mg tablet RxNorm: 7747151 TAKE (1) TABLET BY MOUTH DAILY 020 2020 Inactive metformin 500 mg tablet RxNorm: 819521 1 Tablet(s) Oral two times a day 2019 Inactive loperamide 2 mg tablet RxNorm: 341773 1 Tablet(s) Oral as needed take one tablet after each loose stool, maximum of 8 tablets in 24 hours 2021 Inactive Sudafed 12 Hour 120 mg tablet,extended release RxNorm: 7688053 TAKE 1 TABLET BY MOUTH EVERY 12 HOURS NEEDED 2019 Inactive hydrochlorothiazide 25 mg tablet RxNorm: 074361 TAKE (1) TABLET BY MOUTH EVERY DAY 2019 Inactive omeprazole 20 mg capsule,delayed release RxNorm: 705195 TAKE 1 CAPSULE BY MOUTH EVERY DAY 020 2020 Inactive metformin 500 mg tablet RxNorm: 478231 1 Tablet(s) Oral every day 020 2019 Inactive True Metrix Glucose Test Strip RxNorm: 1 Test Strips Miscellaneous two times a day as needed No Stop Date Active metformin 500 mg tablet RxNorm: 779417 1 Tablet(s) Oral every day 2019 Inactive diclofenac sodium 75 mg tablet,delayed release RxNorm: 798367 1 Tablet(s) PO BID 2021 Inactive This refill negates all other refills of this medication Sudafed 12 Hour 120 mg tablet,extended release RxNorm: 8752787 TAKE 1 TABLET BY MOUTH EVERY 12 HOURS NEEDED 020 2019 Inactive True Metrix Glucose Test Strip RxNorm: 1 Test Strips Miscellaneous every morning 020 2019 Inactive 100/container True Metrix Glucose Test Strip RxNorm: 1 Test Strips Miscellaneous QAM 020 2019 Inactive 100/container loperamide 2 mg tablet RxNorm: 082192 1 Tablet(s) Oral as needed take one tablet after each loose stool, maximum of 8 tablets in 24 hours 020 2019 Inactive cetirizine 10 mg tablet RxNorm: 0188097 1 Tablet(s) PO daily 2019 Inactive loperamide 2 mg tablet RxNorm: 269501 1 Tablet(s) Oral as needed take one tablet after each loose stool, maximum of 8 tablets in 24 hours 020 2019 Inactive quetiapine 100 mg tablet RxNorm: 787714 1 Tablet(s) Oral every night at bedtime 2019 Inactive levothyroxine 50 mcg tablet RxNorm: 514099 1 Tablet(s) PO daily 2020 Inactive gabapentin 300 mg capsule RxNorm: 927288 1 Capsule(s) PO TID 2019 Inactive levothyroxine 50 mcg tablet RxNorm: 733376 1 Tablet(s) PO daily 2019 Inactive lisinopril 2.5 mg tablet RxNorm: 372622 1 Tablet(s) PO daily 020 2020 Inactive gabapentin 300 mg capsule RxNorm: 266738 1 Capsule(s) PO TID 2019 Inactive cetirizine 10 mg tablet RxNorm: 8924574 1 Tablet(s) PO daily 2019 Inactive Singulair 10 mg tablet RxNorm: 277565 1 Tablet(s) PO daily 2020 Inactive gentamicin 0.3 % eye drops RxNorm: 227565 1 Drop(s) ophthalmic (eye) four times a day 020 2019 Inactive gentamicin 0.3 % eye drops RxNorm: 937291 1 Drop(s) ophthalmic (eye) four times a day 020 2019 Inactive gentamicin 0.3 % eye drops RxNorm: 531457 1 Drop(s) ophthalmic (eye) four times a day 020 2019 Inactive hydrochlorothiazide 25 mg tablet RxNorm: 599771 1 Tablet(s) Oral every day 2019 Inactive Sudafed 12 Hour 120 mg tablet,extended release RxNorm: 8648274 TAKE (1) TABLET BY MOUTH EVERY 12 HOURS NEEDED 2019 Inactive loperamide 2 mg tablet RxNorm: 042687 1 Tablet(s) Oral as needed take one tablet after each loose stool, maximum of 8 tablets in 24 hours 2019 Inactive loperamide 2 mg tablet RxNorm: 789581 1 Tablet(s) Oral as needed take one tablet after each loose stool, maximum of 8 tablets in 24 hours 020 2019 Inactive atorvastatin 40 mg tablet RxNorm: 146641 1 Tablet(s) Oral every day 2020 Inactive quetiapine 100 mg tablet RxNorm: 392165 1 Tablet(s) Oral every night at bedtime 2019 Inactive sertraline 100 mg tablet RxNorm: 733268 1 Tablet(s) Oral 020 2019 Inactive omeprazole 20 mg capsule,delayed release RxNorm: 695162 1 Capsule(s) Oral every day 2019 Inactive amoxicillin 250 mg capsule RxNorm: 952723 1 Capsule(s) Oral three times a day 020 2019 Inactive multivitamin with iron-mineral tablet RxNorm: 1 Tablet(s) Oral every day 2021 Inactive cetirizine 10 mg tablet RxNorm: 8120156 1 Tablet(s) PO daily 2019 Inactive This refill negates all other refills of this medication. Please do not auto refill Singulair 10 mg tablet RxNorm: 027820 1 Tablet(s) PO daily 020 2019 Inactive This refill negates all other refills of this medication gabapentin 300 mg capsule RxNorm: 506182 1 Capsule(s) PO TID 2019 Inactive lisinopril 2.5 mg tablet RxNorm: 927650 1 Tablet(s) PO daily 2019 Inactive levothyroxine 50 mcg tablet RxNorm: 268934 1 Tablet(s) PO daily 2019 Inactive This refill negates all other refills of this medication hydrochlorothiazide 25 mg tablet RxNorm: 527359 1 Tablet(s) Oral every day 2019 Inactive fenugreek seed extract 500 mg capsule RxNorm: 1 Capsule(s) Oral three times a day 2021 Inactive Alcohol Prep Pads RxNorm: 252687 1 Patch TOP QAM 2020 Inactive loperamide 2 mg tablet RxNorm: 345521 1 Tablet(s) Oral as needed take one [...] 2019 Inactive hydrochlorothiazide 25 mg tablet RxNorm: 322815 1 Tablet(s) Oral every day 2019 Inactive Sudafed 12 Hour 120 mg tablet,extended release RxNorm: 5724348 1 Tablet(s) Oral every 12 hours as needed 019 2018 Inactive omeprazole 20 mg capsule,delayed release RxNorm: 295036 1 Capsule(s) Oral every day 019 2019 Inactive Sudafed 12 Hour 120 mg tablet,extended release RxNorm: 6276441 1 Tablet(s) Oral every 12 hours as needed 2018 Inactive pantoprazole 40 mg tablet,delayed release RxNorm: 836782 1 Tablet(s) Oral every day 019 2018 Inactive discontinue any other H2Blkr. and PPI albuterol sulfate 2.5 mg/3 mL (0.083 %) solution for nebulization RxNorm: 793672 1 Vial Inhalation every four hours as needed as needed for dyspnea 2019 Inactive 60/box. This refill negates all other refills of this medication. Please do not fill early. Please do not auto refill. Symbicort 160 mcg-4.5 mcg/actuation HFA aerosol inhaler RxNorm: 2753925 2 Puff(s) INH BID No Stop Date Active Alcohol Prep Pads RxNorm: 792348 1 Patch TOP QAM 2019 Inactive Ventolin HFA 90 mcg/actuation aerosol inhaler RxNorm: 363730 2 Puff(s) INH QID 2019 Inactive Please do not fill early. Please do not auto refill. This refill negates all other refills of this medication True Metrix Glucose Test Strip RxNorm: 1 Test Strips Miscellaneous QAM 019 2019 Inactive 100/container atorvastatin 40 mg tablet RxNorm: 944536 1 Tablet(s) Oral every day 019 2019 Inactive buspirone 7.5 mg tablet RxNorm: 680185 1 Tablet(s) PO BID 019 2020 Inactive This refill negates all other refills of this medication hydrochlorothiazide 12.5 mg tablet RxNorm: 185431 1 Tablet(s) PO QAM 019 2019 Inactive levmetamfetamine 50 mg nasal inhaler RxNorm: 1 Unit(s) NASAL Q3-4H Do not use more than every 3 hours or 8 times/24hours 019 2021 Inactive Please do not auto refill. This refill negates all other refills of this medication Ventolin HFA 90 mcg/actuation aerosol inhaler RxNorm: 448730 2 Puff(s) INH QID 019 2018 Inactive Please do not fill early. Please do not auto refill. This refill negates all other refills of this medication Singulair 10 mg tablet RxNorm: 176716 1 Tablet(s) PO daily 019 2019 Inactive This refill negates all other refills of this medication cetirizine 10 mg tablet RxNorm: 4340863 1 Tablet(s) PO daily 019 2019 Inactive This refill negates all other refills of this medication. Please do not auto refill levothyroxine 50 mcg tablet RxNorm: 485840 1 Tablet(s) PO daily 019 2019 Inactive This refill negates all other refills of this medication diclofenac sodium 75 mg tablet,delayed release RxNorm: 520357 1 Tablet(s) PO BID 019 2019 Inactive This refill negates all other refills of this medication ranitidine 150 mg tablet RxNorm: 394811 1 Tablet(s) PO BID 019 2018 Inactive This refill negates all other refills of this medication Calcium 600-D3 Plus (mag-zinc) 600 mg calcium-800 unit-50 mg tablet RxNorm: 1 Tablet(s) PO daily take an additonal tablet for itching. 019 2018 Inactive This refill negates all other refills of this medication albuterol sulfate 2.5 mg/3 mL (0.083 %) solution for nebulization RxNorm: 044886 1 Vial INH QID 019 2018 Inactive 60/box. This refill negates all other refills of this medication. Please do not fill early. Please do not auto refill. lisinopril 2.5 mg tablet RxNorm: 352433 1 Tablet(s) PO daily 019 2019 Inactive gabapentin 300 mg capsule RxNorm: 051454 1 Capsule(s) PO TID 019 2019 Inactive atorvastatin 20 mg tablet RxNorm: 037141 1 Tablet(s) PO QHS 2018 Inactive This refill negates all other refills of this medication TRUEplus Lancets 30 gauge RxNorm: 1 Lancets Miscellaneous QAM 019 2018 Inactive 100/box gabapentin 300 mg capsule RxNorm: 379837 1 Capsule(s) PO TID 019 2018 Inactive Flintstones Complete (iron) 18 mg iron chewable tablet RxNorm: 1 Tablet(s) PO daily 2021 Inactive This refill negates all other refills of this medication gabapentin 300 mg capsule RxNorm: 334662 1 Capsule(s) PO TID as needed 2018 Inactive True Metrix Glucose Test Strip RxNorm: 1 Test Strips Miscellaneous QAM 2018 Inactive 100/container Alcohol Prep Pads RxNorm: 911658 1 Patch TOP QAM 2018 Inactive TRUEplus Lancets 30 gauge RxNorm: 1 Lancets Miscellaneous QAM 019 2018 Inactive 100/box lisinopril 2.5 mg tablet RxNorm: 977094 1 Tablet(s) PO daily 2018 Inactive ranitidine 150 mg tablet RxNorm: 161582 1 Tablet(s) PO BID 2018 Inactive This refill negates all other refills of this medication albuterol sulfate 2.5 mg/3 mL (0.083 %) solution for nebulization RxNorm: 209607 1 Vial INH QID 019 2018 Inactive [...] this medication gabapentin 300 mg capsule RxNorm: 404317 1 Capsule(s) PO TID as needed 019 2018 Inactive atorvastatin 20 mg tablet RxNorm: 227559 1 Tablet(s) PO QHS 019 2018 Inactive This refill negates all other refills of this medication trazodone 50 mg tablet RxNorm: 797941 1 Tablet(s) PO QHS 019 2018 Inactive This refill negates all other refills of this medication Ventolin HFA 90 mcg/actuation aerosol inhaler RxNorm: 994543 2 Puff(s) INH QID 019 2018 Inactive Please do not fill early. Please do not auto refill. This refill negates all other refills of this medication Calcium 600-D3 Plus 600 mg calcium-800 unit-50 mg tablet RxNorm: 1 Tablet(s) PO daily take an additonal tablet for itching. 019 2018 Inactive This refill negates all other refills of this medication Singulair 10 mg tablet RxNorm: 616386 1 Tablet(s) PO daily 019 2018 Inactive This refill negates all other refills of this medication buspirone 7.5 mg tablet RxNorm: 265790 1 Tablet(s) PO BID 019 2018 Inactive This refill negates all other refills of this medication diclofenac sodium 75 mg tablet,delayed release RxNorm: 504083 1 Tablet(s) PO BID 019 2018 Inactive This refill negates all other refills of this medication hydrochlorothiazide 12.5 mg tablet RxNorm: 011394 1 Tablet(s) PO QAM 019 2018 Inactive metoprolol succinate ER 50 mg tablet,extended release 24 hr RxNorm: 003741 1 Tablet(s) PO daily 019 2018 Inactive This refill negates all other refills of this medication levothyroxine 50 mcg tablet RxNorm: 740773 1 Tablet(s) PO daily 019 2018 Inactive This refill negates all other refills of this medication cetirizine 10 mg tablet RxNorm: 5990672 1 Tablet(s) PO daily 019 2018 Inactive This refill negates all other refills of this medication. Please do not auto refill Flintstones Complete (iron) 18 mg iron chewable tablet RxNorm: 1 Tablet(s) PO daily 019 2018 Inactive This refill negates all other refills of this medication buspirone 7.5 mg tablet RxNorm: 809300 1 Tablet(s) PO BID 2018 Inactive cetirizine 10 mg tablet RxNorm: 3032222 1 Tablet(s) PO daily 018 2018 Inactive Guaiasorb DM 10 mg-100 mg/5 mL oral liquid RxNorm: 513902 10 Milliliter(s) PO As needed every 4 hr 2018 Inactive Vicks Vaporub 4.7 %-1.2 %-2.6 % topical ointment RxNorm: 9975048 1 Application TOP TID 2018 Inactive levmetamfetamine 50 mg nasal inhaler RxNorm: 1 Unit(s) NASAL Q3-4H 2017 Inactive sertraline 50 mg tablet RxNorm: 651933 1 Tablet(s) PO daily 018 2018 Inactive Please note dose trazodone 50 mg tablet RxNorm: 648517 1 Tablet(s) PO QHS 018 2018 Inactive sertraline 50 mg tablet RxNorm: 620902 1 Tablet(s) PO daily 018 2017 Inactive amoxicillin 500 mg tablet RxNorm: 451038 1 Tablet(s) PO Q12H 018 2017 Inactive albuterol sulfate 2.5 mg/3 mL (0.083 %) solution for nebulization RxNorm: 456423 1 Vial INH QID 018 2018 Inactive 60/box. Please do not fill early. Please do not auto refill. Prozac 10 mg capsule RxNorm: 848184 1 Capsule(s) PO daily 018 2017 Inactive buspirone 7.5 mg tablet RxNorm: 347695 1 Tablet(s) PO BID 018 2018 Inactive gabapentin 300 mg capsule RxNorm: 299359 1 Capsule(s) PO TID as needed 018 2018 Inactive hydrochlorothiazide 12.5 mg tablet RxNorm: 103970 1 Tablet(s) PO QAM 018 2018 Inactive ranitidine 150 mg tablet RxNorm: 612651 1 Tablet(s) PO BID 018 2018 Inactive Macrobid 100 mg capsule RxNorm: 966274 1 Capsule(s) PO Q12H 018 2017 Inactive Singulair 10 mg tablet RxNorm: 264390 1 Tablet(s) PO daily 018 2018 Inactive Ventolin HFA 90 mcg/actuation aerosol inhaler RxNorm: 5754427 2 Puff(s) INH QID 018 2018 Inactive Singulair 10 mg tablet RxNorm: 220738 1 Tablet(s) PO daily 018 2017 Inactive buspirone 7.5 mg tablet RxNorm: 171295 1 Tablet(s) PO BID 018 2017 Inactive Prozac 10 mg capsule RxNorm: 007302 1 Capsule(s) PO daily 018 2017 Inactive diclofenac sodium 75 mg tablet,delayed release RxNorm: 082458 1 Tablet(s) PO BID 018 2017 Inactive lisinopril 2.5 mg tablet RxNorm: 344551 1 Tablet(s) PO daily 018 2017 Inactive Neilmed Pediatric Sinus Rinse Refill packet RxNorm: 1 Unit Dose NASAL PRN 018 2021 Inactive metoprolol succinate ER 50 mg tablet,extended release 24 hr RxNorm: 070143 1 Tablet(s) PO daily 018 2017 Inactive levothyroxine 50 mcg tablet RxNorm: 123089 1 Tablet(s) PO daily 018 2017 Inactive TRUEplus Lancets 30 gauge RxNorm: 1 Lancets Miscellaneous QAM 018 2017 Inactive 100/box Ventolin HFA 90 mcg/actuation aerosol inhaler RxNorm: 216025 2 Puff(s) INH QID 018 2017 Inactive Aleve 220 mg capsule RxNorm: 6376925 1 Capsule(s) PO BID 018 2018 Inactive ranitidine 150 mg tablet RxNorm: 659423 1 Tablet(s) PO BID 018 2017 Inactive gabapentin 300 mg capsule RxNorm: 665276 1 Capsule(s) PO TID as needed 2017 Inactive atorvastatin 20 mg tablet RxNorm: 176805 1 Tablet(s) PO QHS 018 2017 Inactive True Metrix Glucose Test Strip RxNorm: 1 Test Strips [facility] 018 2017 Inactive 50/container Calcium 600-D3 Plus 600 mg calcium-800 unit-50 mg tablet RxNorm: 1 Tablet(s) PO daily take an additonal tablet for itching. 018 2017 Inactive hydrochlorothiazide 12.5 mg tablet RxNorm: 843745 1 Tablet(s) PO QAM 018 2017 Inactive Flintstones Complete (iron) 18 mg iron chewable tablet RxNorm: 1 Tablet(s) PO daily 018 2017 Inactive True Metrix Glucose Meter RxNorm: miscellaneous 019 2018 Inactive sertraline 50 mg tablet RxNorm: 319628 1 Tablet(s) PO daily 020 2019 Inactive loperamide 2 mg tablet RxNorm: 662380 oral 019 2018 Inactive d-mannose oral powder RxNorm: PO 018 2021 Inactive Symbicort 160 mcg-4.5 mcg/actuation HFA aerosol inhaler RxNorm: 6868041 2 Puff(s) INH BID 019 2018 Inactive Medication Administered No Medication Administered data Procedures Procedure Codes Date Patient Health Questionnaire CPT-4: DPHQ Electrocardiogram CPT-4: 09004 06/24/2023 Urinalysis, dip stick CPT-4: 73213 05/04/2023 Pep Fany Assessment CPT-4: DSWA 01/02 Fall Risk Assessment CPT-4: DFRA 01/27/2023 Hypertension CPT-4: HTN 01/27/2023 Patient Health Questionnaire CPT-4: DPHQ Pain Screening CPT-4: PAS 2022 Tobacco Assessment/Screening CPT-4: TCA Hypertension CPT-4: HTN 08/17/2022 Pep Fany Assessment CPT-4: DSWA 04/02 Patient Health [...] CPT-4: VACP Fall Risk Assessment SNOMED CT: 04034791 4 CPT-4: DFRA01/13/2021emmes Fany AssessmentCPT-4: DSWA12/17/2020Urinalysis, dip stickCPT-4: 510700609/24/2020Patient Health QuestionnaireCPT-4: DPHQ 08/19/2020ElectrocardiogramCPT-4: 7775006Tobacco Assessment/Screening CPT-4: TCA01/01/2020Fall Risk AssessmentSNOMED CT: 733711921 CPT-4: DFRA01/01/2020Functional AssessmentCPT-4: DFA01/01/2020Semmes Fany AssessmentCPT-4: DSWA11/28/2019Patient Health QuestionnaireCPT-4: DPHQ11/28/2019 Pep Fany AssessmentCPT-4: DS10/17/2019HypertensionCPT-4: HTN10/17/[address]: 846613103 CPT-4: DFRA09/19/2019Functional AssessmentCPT-4: DFA111/20/2018Urinalysis, dip stickCPT-4: 480101506/21/2019Tobacco Assessment/ScreeningCPT-4: TCA05/24/2019 Patient Health QuestionnaireCPT-4: DPHQ05/24/2019AHA/REBECCA Classification AssessmentCPT-4: DAHA04/25/2019Controlled Substance ReportCPT-4: CTRSU04/25/2019 Urinalysis, dip stickCPT-4: 5378368Urinalysis, dip stickCPT-4: 35267 03/28/20194432H6N-MfliakgnukbbeyeNVB-4: 99151AhtwujtX0V-SxmwlfafitzkvnkVRC-3: 39897 GyiqjzjD1Y-EmbndzhjohzunvhDCA-1: 42524RzpdkntC1V-QwwjzhseqpfuolrURF-2: 64066 AatrlxfO9N-AqjiwaitqrdnqshVGS-6: 52949HkwrqweD6W-EuusvhywhibsrujHDP-8: 19540 WweukklW3A-WkoebwsxdqpbqobVBO-8: 38624JizsznoV0C-HybugbdxygrapawFMT-7: 85640 HzvhhaoC0P-LqepamdhyntyylxWFY-2: 38290RzeldeyF5A-JjjldhgpfvuknihOOI-0: 09243 IryhkewC5A-MtgemznicuyyakbRGD-3: 57582UhphkuuW7W-EgruewevvhwfxvdLMR-6: [address]: 532952362 CPT-4: K82Dhscmol Reason For Visit No Reason For Visit data Plan of Care Planned Activity Notes Codes Status Date Referral: Pending Gynecology Referral Informatio n Referral ProcessedReferral: Pending Pulmonology Referral InformationReferralProcessed Referral: Pending Psychiatry Referral InformationReferralInitiatedReferral: Pending Respiratory Services Referral InformationReferralInitiatedReferral: Pending Ophthalmology Referral InformationReferralInitiatedReferral: [facility] WPtel: [address] [place] [place]Writer placed a call out to the patient to notify her that it has been recommended that she be seenby a urologist. Patient agreed to be seen, does not have a provider of choice and no transportationissues. [employer] Operator faxed referral and clinical notes to [facility] in [place], [place] near the patient's home. Patient to [...] seen and prefers a provider in the [place] or [place] area. [employer] Operator placed a call out to everyone listed in the area and the only location that was able to accept the patient's insurance was [address] [id number] and spoke with Maylin. Maylin asked that the patient's referral, face sheet and visit notes be faxed to . [employer] Operator faxed over requested documents. Patient appointment confirmation letter generated and mailed to her home address. Patient to call to schedule an appointment.ProcessedReferral: [facility] WPtel: [address] [id number] USPatient notified that it has been advised that she be seen by Neurology. Patient agreed to be seen and prefers to be seen by a provider in the [place], [place] area. Patient denies any concerns with transportation, and prefers to schedule her own appointment. [employer] Operator placed a call out to [facility] [...]
--- OUTSIDE RECORDS SUMMARY | 2024-01-03 23:28 | XMS_ITS | CCD ---
Author Name Leena Culver NP Address [address] [place] [address] [place] [id number] Phone Organization [facility] Phone Care Team Providers Care Record Librarian Name Role Phone Anna Culver NP Primary Care Provider Unav ailable Unavailable Chronic Care Management Unavaila ble Summary Purpose DataExchange Insurance Providers Payer name Policy type / Coverage type Covered constitution party ID Effective Begin Date Effective End Date SUKI MAYO [id number] Unknown Unknown Family history Mother Diagnosis Age [...] 05/31/2018 Education level Unknown Some High School 10th05/31/20187947LbluiqnxtsYxencueSfwirjxbdw62/29/2018Tobacco historySNOMED CT: [id number] never smoked or chewed [id number]/31/2018Alcohol historySNOMED CT: [id number] drinks ufcqhzf6505/31/2018Has the patient ever used illegal drugs? UnknownHas never used illegal drugs05/31/2018DNR Order/ Advanced Directive UnknownFull Code05/31/2018 Allergies, Adverse Reactions, Alerts Substance Reaction Codes Entered Date Inactivated Date Status OxyContin itch, RxNorm: 053749 01/13/2021 No Inactive Da te Active *No known food allergies Xqavfhu0509/06/2018No Inactive DateActiveMethylprednisolonehivesRxNorm: 6902 09/06/2018No Inactive DateActive Problems Condition Codes Effective Dates Condition St atus URI (upper respiratory infection) ICD-10 : J06.9 ICD-9: 465.912/ctiveEncounter for immunizationICD-10: Z23 ICD-9: V04.8111/ctiveHypertensive heart disease without heart [...] ICD-9: V76.207Resolved(Z13.31-V79.0) Encounter for screening for depressionICD-10: Z13. ICD-9: V79.004/1ResolvedAnorexiaICD-10: R63.0 ICD-9: 783.003/1ResolvedBlisterICD-10: T14.8XXA ICD-9: 919.206esolvedChronic kidney disease, stage 2 (mild)ICD-10: N18.2 ICD-9: 585.201/esolvedCOVID-19 virus RNA test result positive at limit of detectionICD-10: U07.1 ICD-9: 079.8909/esolvedDiarrheaICD-10: R19.7 ICD-9: 787.9111/1ResolvedDyspnea, unspecifiedICD-10: R06.00 ICD-9: 786.0905/06/2019ResolvedElevated liver enzymesICD-10: R74.8 ICD-9: 790.504esolvedEncounter for screening, unspecifiedICD-10: Z13.9 ICD-9: V82.912ResolvedFamily history of seizuresICD-10: Z84.89 ICD-9: V19.807esolvedHyperlipidemia, unspecifiedICD-10: E78.5 ICD-9: 272.408ResolvedLong term (current) use [...] Fill Instructions amoxicillin 500 mg tablet RxNorm: 500613 Take 1 Tablet(s) Oral three times a day 023 2022 Inactive Ozempic 1 mg/dose (4 mg/3 mL) subcutaneous pen injector RxNorm: 0710745 INJECT 1 UNITS DOSE SUBCUTANEOUSLY ON TUESDAY OF EACH WEEK 2023 Active MED IS ON B/O omeprazole 40 mg capsule,delayed release RxNorm: 959276 Take 1 Capsule(s) Oral HS 023 2022 Inactive Januvia 50 mg tablet RxNorm: 342299 Take 1 Tablet(s) Oral two times a day 023 2023 Inactive famotidine 20 mg tablet RxNorm: 070680 TAKE 1 TABLET BY MOUTH EACH MORNING 023 2023 Active Januvia 25 mg tablet RxNorm: 071951 Take 1 Tablet(s) Oral every day 023 2022 Inactive Ozempic 1 mg/dose (4 mg/3 mL) subcutaneous pen injector RxNorm: 2493171 INJECT 1 UNITS DOSE SUBCUTANEOUSLY ON TUESDAY OF EACH WEEK 023 2022 Inactive cetirizine 10 mg tablet RxNorm: 2644519 TAKE (1) TABLET BY MOUTH DAILY 023 2023 Inactive amoxicillin 500 mg tablet RxNorm: 615127 Take 1 Tablet(s) Oral two times a day 023 2022 Inactive omeprazole 40 mg capsule,delayed release RxNorm: 495081 Take 1 Capsule(s) Oral at bed time 023 2022 Inactive Easy Touch Alcohol Prep Pads RxNorm: 915986 USE EACH MORNING 023 2024 Active montelukast 10 mg tablet RxNorm: 383467 Take 1 Tablet(s) Oral every day 023 2022 Inactive gabapentin 300 mg capsule RxNorm: 151626 Take 1 Capsule(s) Oral three times a day 023 2022 Inactive metformin ER 500 mg 24 hr tablet,extended release RxNorm: 4053470 Take 1 Tablet(s) Oral every day with the evening meal 023 2022 Inactive famotidine 20 mg tablet RxNorm: 212406 Take 1 Tablet(s) Oral every morning 023 2022 Inactive levothyroxine 50 mcg tablet RxNorm: 951023 Take 1 Tablet(s) Oral every day 023 2023 [facility] Request[facility] hydrochlorothiazide 25 mg tablet RxNorm: 584482 Take 1 Tablet(s) Oral every day 023 2023 Active Msg From [facility]: Approval Requested atorvastatin 20 mg tablet RxNorm: 301398 Take 1 Tablet(s) Oral every night at bedtime 023 2023 Active Macrobid 100 mg capsule RxNorm: 690386 1 Capsule(s) Oral every 12 hours with food 023 2022 Inactive omeprazole 40 mg capsule,delayed release RxNorm: 393284 Take 1 Capsule(s) Oral every night at bedtime 023 2022 Inactive trazodone 50 mg tablet RxNorm: 974029 Administer 1 Tablet(s) Oral every night at bedtime 023 No Stop Date Active cholecalciferol (vitamin D3) 50 mcg (2,000 unit) tablet RxNorm: 459830 Take 1 Tablet(s) Oral every day 023 2023 Active Ozempic 1 mg/dose (4 mg/3 mL) subcutaneous pen injector RxNorm: 4339356 USE 1 UNIT DOSE SUBCUTANEOUSLY ON TUE OF EACH WEEK 023 2022 Inactive lisinopril 2.5 mg tablet RxNorm: 840654 Take 1 Tablet(s) Oral every day 023 2022 Inactive Msg From [facility]: Dr. Zapata Requested Ozempic 1 mg/dose (4 mg/3 mL) subcutaneous pen injector RxNorm: 2151437 USE 1 UNIT DOSE SUBCUTANEOUSLY ON TUE OF EACH WEEK 023 2022 Inactive omeprazole 40 mg capsule,delayed release RxNorm: 768983 Take 1 Capsule(s) Oral every night at bedtime 023 2022 Inactive gabapentin 300 mg capsule RxNorm: 584630 Take 1 Capsule(s) Oral three times a day 023 2022 Inactive montelukast 10 mg tablet RxNorm: 693575 Take 1 Tablet(s) Oral every day 023 2022 Inactive omeprazole 20 mg capsule,delayed release RxNorm: 148371 Take 1 Capsule(s) Oral every evening 022 2022 Inactive Alcohol Prep Pads RxNorm: 268820 USE EACH MORNING 022 2021 Inactive E11.42 clotrimazole 1 % topical cream RxNorm: 979692 Apply 1 Application Topical two times a day as needed apply to affected area(s) twice daily until healed 2021 Inactive Victoza 2-Sebastián 0.6 mg/0.1 mL (18 mg/3 mL) subcutaneous pen injector RxNorm: 829940 Inject 0.6-1.8 Milligram(s) Subcutaneous once a week Inject 0.6mg/0.1ml week one, 1.2mg/0.2ml week two, 1.8/0.3ml weekly thereafter 022 2021 Inactive ibuprofen 800 mg tablet RxNorm: 380984 Take 1 Tablet(s) Oral Q8H as needed for pain take with food No Stop Date Active Ozempic 1 mg/dose (4 mg/3 mL) subcutaneous pen injector RxNorm: 7214745 Take 1 Unit Dose Subcutaneous QWeek Tuesday2021 Inactive lisinopril 2.5 mg tablet RxNorm: 573919 Take 1 Tablet(s) Oral every day 2021 Inactive lisinopril 2.5 mg tablet RxNorm: 429117 Take 1 Tablet(s) Oral every day 022 2022 Inactive hydrochlorothiazide 25 mg tablet RxNorm: 707494 Take 1 Tablet(s) Oral every day 2021 Inactive Ozempic 1 mg/dose (4 mg/3 mL) subcutaneous pen injector RxNorm: 9555718 Take 1 Unit Dose Subcutaneous QWeek 2021 Inactive famotidine 20 mg tablet RxNorm: 566571 Take 1 Tablet(s) Oral every morning 2021 Inactive levothyroxine 50 mcg tablet RxNorm: 115770 Take 1 Tablet(s) Oral every day 2021 Inactive atorvastatin 20 mg tablet RxNorm: 892764 Take 1 Tablet(s) Oral every night at bedtime 2021 Inactive Cleocin T 1 % lotion RxNorm: 345438 Take 2 Gram(s) Topical every day 2021 Inactive Cleocin T 1 % lotion RxNorm: 805542 Take 2 Gram(s) Topical every day 022 2021 Inactive Ozempic 1 mg/dose (4 mg/3 mL) subcutaneous pen injector RxNorm: 6689637 Take 1 Unit Dose Subcutaneous QWeek 022 2021 Inactive Ozempic 0.25 mg or 0.5 mg (2 mg/1.5 mL) subcutaneous pen injector RxNorm: 6277547 INJECT 0.5 MGS SUBCUTANEOUSLY EVERY WEEK 022 2021 Inactive omeprazole 20 mg capsule,delayed release RxNorm: 354244 Take 1 Capsule(s) Oral every evening 022 2021 Inactive levothyroxine 50 mcg tablet RxNorm: 706684 Take 1 Tablet(s) Oral every day 022 2021 Inactive atorvastatin 20 mg tablet RxNorm: 287112 Take 1 Tablet(s) Oral every night at bedtime 2021 Inactive This refill negates all other refills of this medication lisinopril 2.5 mg tablet RxNorm: 619436 Take 1 Tablet(s) Oral every day 022 2021 Inactive gabapentin 300 mg capsule RxNorm: 375448 Take 1 Capsule(s) Oral three times a day 022 2021 Inactive montelukast 10 mg tablet RxNorm: 443365 Take 1 Tablet(s) Oral every day 2021 Inactive Myrbetriq 50 mg tablet,extended release RxNorm: 1803920 1 Tablet(s) Oral every day No Stop Date Active cholecalciferol (vitamin D3) 50 mcg (2,000 unit) tablet RxNorm: 462043 Take 1 Tablet(s) Oral every day 2022 Inactive Ozempic 0.25 mg or 0.5 mg (2 mg/1.5 mL) subcutaneous pen injector RxNorm: 1750584 inject 0.5 milligrams subcutaneously every week 2021 Inactive Ozempic 0.25 mg or 0.5 mg (2 mg/1.5 mL) subcutaneous pen injector RxNorm: 6745987 Take 0.5 Capsule(s) Injection once a week 022 2021 Inactive omeprazole 20 mg capsule,delayed release RxNorm: 493993 Take 1 Capsule(s) Oral every evening 2020 Inactive Ozempic 0.25 mg or 0.5 mg (2 mg/1.5 mL) subcutaneous pen injector RxNorm: 2193803 Take 0.25 Milligram(s) Subcutaneous once a week 2021 Inactive Easy Touch Alcohol Prep Pads RxNorm: 903046 USE DIRECTED EACH MORNING 2021 Inactive Probiotic 10 billion cell capsule RxNorm: 9841441 Take 1 Capsule(s) Oral every day 2021 Inactive levothyroxine 50 mcg tablet RxNorm: 800197 Take 1 Tablet(s) Oral every day 2020 Inactive Acid Director Of [employer] Work (famotidine) 20 mg tablet RxNorm: 190223 Take 1 Tablet(s) Oral every morning 2020 Inactive Heartburn Relief (famotidine) 10 mg tablet RxNorm: 007627 Take 1 Tablet(s) Oral QAM 021 2020 Inactive levothyroxine 50 mcg tablet RxNorm: 762144 Take 1 Tablet(s) Oral QD 2020 Inactive Singulair 10 mg tablet RxNorm: 348206 TAKE (1) TABLET BY MOUTH DAILY 2020 Inactive metformin 1,000 mg tablet RxNorm: 073324 1 Tablet(s) Oral two times a day 2021 Inactive lisinopril 2.5 mg tablet RxNorm: 170952 Take 1 Tablet(s) Oral every day 021 2020 Inactive hydrochlorothiazide 25 mg tablet RxNorm: 832639 Take 1 Tablet(s) Oral every day 021 2020 Inactive ondansetron 4 mg disintegrating tablet RxNorm: 457488 1 Tablet(s) Oral two times a day 021 2020 Inactive Sudafed 12 Hour 120 mg tablet,extended release RxNorm: 3015877 TAKE 1 TABLET BY MOUTH EVERY 12 HOURS NEEDED 2021 Inactive Heartburn Relief (famotidine) 10 mg tablet RxNorm: 101657 Take 1 Tablet(s) Oral every morning 021 2020 Inactive omeprazole 20 mg capsule,delayed release RxNorm: 019766 1 Capsule(s) Oral every evening 021 2020 Inactive sertraline 100 mg tablet RxNorm: 718747 2 Tablet(s) Oral every day 021 2020 Inactive levothyroxine 50 mcg tablet RxNorm: 798180 TAKE (1) TABLET BY MOUTH DAILY 021 2020 Inactive metformin 500 mg tablet RxNorm: 232031 1 Tablet(s) Oral two times a day take with 500mg to equal 1000mg 021 2020 Inactive gabapentin 300 mg capsule RxNorm: 810398 TAKE 1 CAPSULE BY MOUTH THREE TIMES A DAY 021 2020 Inactive lisinopril 2.5 mg tablet RxNorm: 595313 TAKE 1 TABLET BY MOUTH DAILY 021 2020 Inactive gabapentin 300 mg capsule RxNorm: 098002 TAKE 1 CAPSULE BY MOUTH THREE TIMES A DAY 021 2020 Inactive Singulair 10 mg tablet RxNorm: 599758 TAKE (1) TABLET BY MOUTH DAILY 021 2020 Inactive metformin 1,000 mg tablet RxNorm: 684193 1 Tablet(s) Oral two times a day 021 2020 Inactive atorvastatin 40 mg tablet RxNorm: 949662 1 Tablet(s) Oral every day 021 2020 Inactive omeprazole 20 mg capsule,delayed release RxNorm: 260207 1 Capsule(s) Oral every evening 021 2020 Inactive famotidine 10 mg tablet RxNorm: 454600 1 Tablet(s) Oral every morning 021 2020 Inactive Alcohol Prep Pads RxNorm: 554994 USE EACH MORNING 021 2020 Inactive omeprazole 20 mg capsule,delayed release RxNorm: 003420 1 Capsule(s) Oral two times a day 021 2021 Inactive omeprazole 20 mg capsule,delayed release RxNorm: 212425 TAKE 1 CAPSULE BY MOUTH EVERY DAY 021 2021 Inactive Macrobid 100 mg capsule RxNorm: 566984 1 Capsule(s) Oral every 12 hours with food 2020 Inactive omeprazole 20 mg capsule,delayed release RxNorm: 160962 1 Capsule(s) Oral two times a day 2021 Inactive metformin 1,000 mg tablet RxNorm: 415394 1 Tablet(s) Oral two times a day 2020 Inactive start on September 11, 2020 metformin 500 mg tablet RxNorm: 109976 1 Tablet(s) Oral two times a day take with 500mg to equal 1000mg 2019 Inactive gabapentin 300 mg capsule RxNorm: 792155 TAKE 1 CAPSULE BY MOUTH THREE TIMES DAILY 2020 Inactive cetirizine 10 mg tablet RxNorm: 2264914 TAKE (1) TABLET BY MOUTH DAILY 2020 Inactive metformin 500 mg tablet RxNorm: 119794 1 Tablet(s) Oral two times a day 2019 Inactive loperamide 2 mg tablet RxNorm: 948534 1 Tablet(s) Oral as needed take one tablet after each loose stool, maximum of 8 tablets in 24 hours 2021 Inactive Sudafed 12 Hour 120 mg tablet,extended release RxNorm: 6638623 TAKE 1 TABLET BY MOUTH EVERY 12 HOURS NEEDED 2019 Inactive hydrochlorothiazide 25 mg tablet RxNorm: 506494 TAKE (1) TABLET BY MOUTH EVERY DAY 2019 Inactive omeprazole 20 mg capsule,delayed release RxNorm: 441137 TAKE 1 CAPSULE BY MOUTH EVERY DAY 2020 Inactive metformin 500 mg tablet RxNorm: 802481 1 Tablet(s) Oral every day 2019 Inactive True Metrix Glucose Test Strip RxNorm: 1 Test Strips Miscellaneous two times a day as needed No Stop Date Active metformin 500 mg tablet RxNorm: 390954 1 Tablet(s) Oral every 2019 Inactive diclofenac sodium 75 mg tablet,delayed release RxNorm: 958557 1 Tablet(s) PO BID 2021 Inactive This refill negates all other refills of this medication Sudafed 12 Hour 120 mg tablet,extended release RxNorm: 9223464 TAKE 1 TABLET BY MOUTH EVERY 12 HOURS NEEDED 2019 Inactive True Metrix Glucose Test Strip RxNorm: 1 Test Strips Miscellaneous every morning 020 2019 Inactive 100/container True Metrix Glucose Test Strip RxNorm: 1 Test Strips Miscellaneous QAM 020 2019 Inactive 100/container loperamide 2 mg tablet RxNorm: 009829 1 Tablet(s) Oral as needed take one tablet after each loose stool, maximum of 8 tablets in 24 hours 020 2019 Inactive cetirizine 10 mg tablet RxNorm: 3556369 1 Tablet(s) PO daily 2019 Inactive loperamide 2 mg tablet RxNorm: 905023 1 Tablet(s) Oral as needed take one tablet after each loose stool, maximum of 8 tablets in 24 hours 2019 Inactive quetiapine 100 mg tablet RxNorm: 629053 1 Tablet(s) Oral every night at bedtime 2019 Inactive levothyroxine 50 mcg tablet RxNorm: 752797 1 Tablet(s) PO daily 020 2020 Inactive gabapentin 300 mg capsule RxNorm: 928434 1 Capsule(s) PO TID 020 2019 Inactive levothyroxine 50 mcg tablet RxNorm: 855938 1 Tablet(s) PO daily 020 2019 Inactive lisinopril 2.5 mg tablet RxNorm: 898535 1 Tablet(s) PO daily 020 2020 Inactive gabapentin 300 mg capsule RxNorm: 963540 1 Capsule(s) PO TID 020 2019 Inactive cetirizine 10 mg tablet RxNorm: 7426358 1 Tablet(s) PO daily 2019 Inactive Singulair 10 mg tablet RxNorm: 170347 1 Tablet(s) PO daily 2020 Inactive gentamicin 0.3 % eye drops RxNorm: 724154 1 Drop(s) ophthalmic (eye) four times a day 2019 Inactive gentamicin 0.3 % eye drops RxNorm: 190214 1 Drop(s) ophthalmic (eye) four times a day 2019 Inactive gentamicin 0.3 % eye drops RxNorm: 644532 1 Drop(s) ophthalmic (eye) four times a day 2019 Inactive hydrochlorothiazide 25 mg tablet RxNorm: 681259 1 Tablet(s) Oral every day 2019 Inactive Sudafed 12 Hour 120 mg tablet,extended release RxNorm: 2014045 TAKE (1) TABLET BY MOUTH EVERY 12 HOURS NEEDED 2019 Inactive loperamide 2 mg tablet RxNorm: 809876 1 Tablet(s) Oral as needed take one tablet after each loose stool, maximum of 8 tablets in 24 hours 020 2019 Inactive loperamide 2 mg tablet RxNorm: 976663 1 Tablet(s) Oral as needed take one tablet after each loose stool, maximum of 8 tablets in 24 hours 2019 Inactive atorvastatin 40 mg tablet RxNorm: 864746 1 Tablet(s) Oral every day 2020 Inactive quetiapine 100 mg tablet RxNorm: 837698 1 Tablet(s) Oral every night at bedtime 2019 Inactive sertraline 100 mg tablet RxNorm: 863123 1 Tablet(s) Oral 020 2019 Inactive omeprazole 20 mg capsule,delayed release RxNorm: 225197 1 Capsule(s) Oral every day 2019 Inactive amoxicillin 250 mg capsule RxNorm: 016193 1 Capsule(s) Oral three times a day 020 2019 Inactive multivitamin with iron-mineral tablet RxNorm: 1 Tablet(s) Oral every day 020 2021 Inactive cetirizine 10 mg tablet RxNorm: 2601070 1 Tablet(s) PO daily 020 2019 Inactive This refill negates all other refills of this medication. Please do not auto refill Singulair 10 mg tablet RxNorm: 205328 1 Tablet(s) PO daily 2019 Inactive This refill negates all other refills of this medication gabapentin 300 mg capsule RxNorm: 828093 1 Capsule(s) PO TID 2019 Inactive lisinopril 2.5 mg tablet RxNorm: 534425 1 Tablet(s) PO daily 2019 Inactive levothyroxine 50 mcg tablet RxNorm: 675628 1 Tablet(s) PO daily 2019 Inactive This refill negates all other refills of this medication hydrochlorothiazide 25 mg tablet RxNorm: 249129 1 Tablet(s) Oral every day 2019 Inactive fenugreek seed extract 500 mg capsule RxNorm: 1 Capsule(s) Oral three times a day 2021 Inactive Alcohol Prep Pads RxNorm: 655020 1 Patch TOP QAM 2020 Inactive loperamide 2 mg tablet RxNorm: 756999 1 Tablet(s) Oral as needed take one [...] 2019 Inactive hydrochlorothiazide 25 mg tablet RxNorm: 535046 1 Tablet(s) Oral every day 019 2019 Inactive Sudafed 12 Hour 120 mg tablet,extended release RxNorm: 2662981 1 Tablet(s) Oral every 12 hours as needed 2018 Inactive omeprazole 20 mg capsule,delayed release RxNorm: 531162 1 Capsule(s) Oral every day 019 2019 Inactive Sudafed 12 Hour 120 mg tablet,extended release RxNorm: 7335192 1 Tablet(s) Oral every 12 hours as needed 019 2018 Inactive pantoprazole 40 mg tablet,delayed release RxNorm: 298941 1 Tablet(s) Oral every day 2018 Inactive discontinue any other H2Blkr. and PPI albuterol sulfate 2.5 mg/3 mL (0.083 %) solution for nebulization RxNorm: 456286 1 Vial Inhalation every four hours as needed as needed for dyspnea 2019 Inactive 60/box. This refill negates all other refills of this medication. Please do not fill early. Please do not auto refill. Symbicort 160 mcg-4.5 mcg/actuation HFA aerosol inhaler RxNorm: 5335814 2 Puff(s) INH BID No Stop Date Active Alcohol Prep Pads RxNorm: 277589 1 Patch TOP QAM 019 2019 Inactive Ventolin HFA 90 mcg/actuation aerosol inhaler RxNorm: 048212 2 Puff(s) INH QID 019 2019 Inactive Please do not fill early. Please do not auto refill. This refill negates all other refills of this medication True Metrix Glucose Test Strip RxNorm: 1 Test Strips Miscellaneous QAM 019 2019 Inactive 100/container atorvastatin 40 mg tablet RxNorm: 971805 1 Tablet(s) Oral every day 019 2019 Inactive buspirone 7.5 mg tablet RxNorm: 561276 1 Tablet(s) PO BID 019 2020 Inactive This refill negates all other refills of this medication hydrochlorothiazide 12.5 mg tablet RxNorm: 131683 1 Tablet(s) PO QAM 019 2019 Inactive levmetamfetamine 50 mg nasal inhaler RxNorm: 1 Unit(s) NASAL Q3-4H Do not use more than every 3 hours or 8 times/24hours 2021 Inactive Please do not auto refill. This refill negates all other refills of this medication Ventolin HFA 90 mcg/actuation aerosol inhaler RxNorm: 292620 2 Puff(s) INH QID 2018 Inactive Please do not fill early. Please do not auto refill. This refill negates all other refills of this medication Singulair 10 mg tablet RxNorm: 674898 1 Tablet(s) PO daily 019 2019 Inactive This refill negates all other refills of this medication cetirizine 10 mg tablet RxNorm: 5860912 1 Tablet(s) PO daily 019 2019 Inactive This refill negates all other refills of this medication. Please do not auto refill levothyroxine 50 mcg tablet RxNorm: 412846 1 Tablet(s) PO daily 019 2019 Inactive This refill negates all other refills of this medication diclofenac sodium 75 mg tablet,delayed release RxNorm: 039886 1 Tablet(s) PO BID 019 2019 Inactive This refill negates all other refills of this medication ranitidine 150 mg tablet RxNorm: 595413 1 Tablet(s) PO BID 019 2018 Inactive This refill negates all other refills of this medication Calcium 600-D3 Plus (mag-zinc) 600 mg calcium-800 unit-50 mg tablet RxNorm: 1 Tablet(s) PO daily take an additonal tablet for itching. 092018 Inactive This refill negates all other refills of this medication albuterol sulfate 2.5 mg/3 mL (0.083 %) solution for nebulization RxNorm: 429877 1 Vial INH QID 2018 Inactive 60/box. This refill negates all other refills of this medication. Please do not fill early. Please do not auto refill. lisinopril 2.5 mg tablet RxNorm: 387170 1 Tablet(s) PO daily 019 2019 Inactive gabapentin 300 mg capsule RxNorm: 202324 1 Capsule(s) PO TID 019 2019 Inactive atorvastatin 20 mg tablet RxNorm: 087008 1 Tablet(s) PO QHS 2018 Inactive This refill negates all other refills of this medication TRUEplus Lancets 30 gauge RxNorm: 1 Lancets Miscellaneous QAM 2018 Inactive 100/box gabapentin 300 mg capsule RxNorm: 571420 1 Capsule(s) PO TID 019 2018 Inactive Flintstones Complete (iron) 18 mg iron chewable tablet RxNorm: 1 Tablet(s) PO daily 2021 Inactive This refill negates all other refills of this medication gabapentin 300 mg capsule RxNorm: 652476 1 Capsule(s) PO TID as needed 2018 Inactive True Metrix Glucose Test Strip RxNorm: 1 Test Strips Miscellaneous QAM 019 2018 Inactive 100/container Alcohol Prep Pads RxNorm: 875615 1 Patch TOP QAM 2018 Inactive TRUEplus Lancets 30 gauge RxNorm: 1 Lancets Miscellaneous QAM 019 2018 Inactive 100/box lisinopril 2.5 mg tablet RxNorm: 028945 1 Tablet(s) PO daily 019 2018 Inactive ranitidine 150 mg tablet RxNorm: 493275 1 Tablet(s) PO BID 019 2018 Inactive This refill negates all other refills of this medication albuterol sulfate 2.5 mg/3 mL (0.083 %) solution for nebulization RxNorm: 655146 1 Vial INH QID 019 2018 Inactive [...] this medication gabapentin 300 mg capsule RxNorm: 657264 1 Capsule(s) PO TID as needed 019 2018 Inactive atorvastatin 20 mg tablet RxNorm: 657922 1 Tablet(s) PO QHS 019 2018 Inactive This refill negates all other refills of this medication trazodone 50 mg tablet RxNorm: 925789 1 Tablet(s) PO QHS 019 2018 Inactive This refill negates all other refills of this medication Ventolin HFA 90 mcg/actuation aerosol inhaler RxNorm: 500997 2 Puff(s) INH QID 019 2018 Inactive Please do not fill early. Please do not auto refill. This refill negates all other refills of this medication Calcium 600-D3 Plus 600 mg calcium-800 unit-50 mg tablet RxNorm: 1 Tablet(s) PO daily take an additonal tablet for itching. 019 2018 Inactive This refill negates all other refills of this medication Singulair 10 mg tablet RxNorm: 198447 1 Tablet(s) PO daily 019 2018 Inactive This refill negates all other refills of this medication buspirone 7.5 mg tablet RxNorm: 672867 1 Tablet(s) PO BID 019 2018 Inactive This refill negates all other refills of this medication diclofenac sodium 75 mg tablet,delayed release RxNorm: 335612 1 Tablet(s) PO BID 019 2018 Inactive This refill negates all other refills of this medication hydrochlorothiazide 12.5 mg tablet RxNorm: 149238 1 Tablet(s) PO QAM 019 2018 Inactive metoprolol succinate ER 50 mg tablet,extended release 24 hr RxNorm: 808329 1 Tablet(s) PO daily 019 2018 Inactive This refill negates all other refills of this medication levothyroxine 50 mcg tablet RxNorm: 160965 1 Tablet(s) PO daily 019 2018 Inactive This refill negates all other refills of this medication cetirizine 10 mg tablet RxNorm: 4916050 1 Tablet(s) PO daily 019 2018 Inactive This refill negates all other refills of this medication. Please do not auto refill Flintstones Complete (iron) 18 mg iron chewable tablet RxNorm: 1 Tablet(s) PO daily 019 2018 Inactive This refill negates all other refills of this medication buspirone 7.5 mg tablet RxNorm: 878350 1 Tablet(s) PO BID 019 2018 Inactive cetirizine 10 mg tablet RxNorm: 1496231 1 Tablet(s) PO daily 2018 Inactive Guaiasorb DM 10 mg-100 mg/5 mL oral liquid RxNorm: 904023 10 Milliliter(s) PO As needed every 4 hr 2018 Inactive Vicks Vaporub 4.7 %-1.2 %-2.6 % topical ointment RxNorm: 3456253 1 Application TOP TID 2018 Inactive levmetamfetamine 50 mg nasal inhaler RxNorm: 1 Unit(s) NASAL Q3-4H 018 2017 Inactive sertraline 50 mg tablet RxNorm: 885555 1 Tablet(s) PO daily 018 2018 Inactive Please note dose trazodone 50 mg tablet RxNorm: 283837 1 Tablet(s) PO QHS 018 2018 Inactive sertraline 50 mg tablet RxNorm: 439450 1 Tablet(s) PO daily 018 2017 Inactive amoxicillin 500 mg tablet RxNorm: 020229 1 Tablet(s) PO Q12H 018 2017 Inactive albuterol sulfate 2.5 mg/3 mL (0.083 %) solution for nebulization RxNorm: 063646 1 Vial INH QID 018 2018 Inactive 60/box. Please do not fill early. Please do not auto refill. Prozac 10 mg capsule RxNorm: 245507 1 Capsule(s) PO daily 018 2017 Inactive buspirone 7.5 mg tablet RxNorm: 961454 1 Tablet(s) PO BID 018 2018 Inactive gabapentin 300 mg capsule RxNorm: 518390 1 Capsule(s) PO TID as needed 2018 Inactive hydrochlorothiazide 12.5 mg tablet RxNorm: 544252 1 Tablet(s) PO QAM 018 2018 Inactive ranitidine 150 mg tablet RxNorm: 036743 1 Tablet(s) PO BID 2018 Inactive Macrobid 100 mg capsule RxNorm: 809488 1 Capsule(s) PO Q12H 018 2017 Inactive Singulair 10 mg tablet RxNorm: 136004 1 Tablet(s) PO daily 018 2018 Inactive Ventolin HFA 90 mcg/actuation aerosol inhaler RxNorm: 6865555 2 Puff(s) INH QID 018 2018 Inactive Singulair 10 mg tablet RxNorm: 918116 1 Tablet(s) PO daily 018 2017 Inactive buspirone 7.5 mg tablet RxNorm: 352541 1 Tablet(s) PO BID 018 2017 Inactive Prozac 10 mg capsule RxNorm: 147975 1 Capsule(s) PO daily 018 2017 Inactive diclofenac sodium 75 mg tablet,delayed release RxNorm: 582881 1 Tablet(s) PO BID 018 2017 Inactive lisinopril 2.5 mg tablet RxNorm: 577294 1 Tablet(s) PO daily 018 2017 Inactive Neilmed Pediatric Sinus Rinse Refill packet RxNorm: 1 Unit Dose NASAL PRN 018 2021 Inactive metoprolol succinate ER 50 mg tablet,extended release 24 hr RxNorm: 620242 1 Tablet(s) PO daily 018 2017 Inactive levothyroxine 50 mcg tablet RxNorm: 475087 1 Tablet(s) PO daily 018 2017 Inactive TRUEplus Lancets 30 gauge RxNorm: 1 Lancets Miscellaneous QAM 018 2017 Inactive 100/box Ventolin HFA 90 mcg/actuation aerosol inhaler RxNorm: 654788 2 Puff(s) INH QID 018 2017 Inactive Aleve 220 mg capsule RxNorm: 0620430 1 Capsule(s) PO BID 018 2018 Inactive ranitidine 150 mg tablet RxNorm: 641113 1 Tablet(s) PO BID 018 2017 Inactive gabapentin 300 mg capsule RxNorm: 028286 1 Capsule(s) PO TID as needed 018 2017 Inactive atorvastatin 20 mg tablet RxNorm: 819351 1 Tablet(s) PO QHS 018 2017 Inactive True Metrix Glucose Test Strip RxNorm: 1 Test Strips Miscellaneous QAM 018 2017 Inactive 50/container Calcium 600-D3 Plus 600 mg calcium-800 unit-50 mg tablet RxNorm: 1 Tablet(s) PO daily take an additonal tablet for itching. 018 2017 Inactive hydrochlorothiazide 12.5 mg tablet RxNorm: 469664 1 Tablet(s) PO QAM 018 2017 Inactive Flintstones Complete (iron) 18 mg iron chewable tablet RxNorm: 1 Tablet(s) PO daily 018 2017 Inactive True Metrix Glucose Meter RxNorm: miscellaneous 019 2018 Inactive sertraline 50 mg tablet RxNorm: 905536 1 Tablet(s) PO daily 020 2019 Inactive loperamide 2 mg tablet RxNorm: 177421 oral 019 2018 Inactive d-mannose oral powder RxNorm: PO 018 2021 Inactive Symbicort 160 mcg-4.5 mcg/actuation HFA aerosol inhaler RxNorm: 8351040 2 Puff(s) INH BID 2018 Inactive Medication Administered No Medication Administered data Procedures Procedure Codes Date Patient Health Questionnaire CPT-4: DPHQ Electrocardiogram CPT-4: 70882 06/24/2023 Urinalysis, dip stick CPT-4: 57040 05/04/2023 [place] Assessment CPT-4: DSWA 01/02 Fall Risk Assessment CPT-4: DFRA 01/27/2023 Hypertension CPT-4: HTN 01/27/2023 Patient Health Questionnaire CPT-4: DPHQ Pain Screening CPT-4: PAS 2022 Tobacco Assessment/Screening CPT-4: TCA Hypertension CPT-4: HTN 08/17/2022 [place] Fany Assessment CPT-4: DSWA 04/02 Patient Health [...] VACP 1 Fall Risk Assessment SNOMED CT: 58736042 4 CPT-4: DFRA1[place] Fayn AssessmentCPT-4: DSWA12/17/2020Urinalysis, dip stickCPT-4: 563295909/24/2020Patient Health QuestionnaireCPT-4: DPHQ 08/19/2020ElectrocardiogramCPT-4: 3396640Tobacco Assessment/Screening CPT-4: TCA01/01/2020Fall Risk AssessmentSNOMED CT: 915487950 CPT-4: DFRA01/01/2020Functional AssessmentCPT-4: DFA01/01/2020[place] Fany AssessmentCPT-4: DSWA11/28/2019Patient Health QuestionnaireCPT-4: DPHQ11/28/2019 [place] Fany AssessmentCPT-4: DSWA10/17/2019HypertensionCPT-4: HTN10/17/[address]: 318434403 CPT-4: DFRA09/19/2019Functional AssessmentCPT-4: DFA111/20/2018Urinalysis, dip stickCPT-4: 619920906/21/2019Tobacco Assessment/ScreeningCPT-4: TCA05/24/2019 Patient Health QuestionnaireCPT-4: DPHQ05/24/2019AHA/REBECCA Classification AssessmentCPT-4: DAHA04/25/2019Controlled Substance ReportCPT-4: CTRSU04/25/2019 Urinalysis, dip stickCPT-4: 085066603/28/2019Urinalysis, dip stickCPT-4: 44647 03/28/20196777D6C-NvqdxgremmqwxvjRHJ-8: 37500MgqajomH9F-DkqeuzwvtbnozukBZO-9: 85017 HdlpigjW3K-NswhrelouozmlhpBCK-3: 99024NsolankE4G-JrnmqnkrqwpsoexTLJ-2: 93443 NxetopyD7I-KvzkccpgwzbnlwyAEF-4: 72436VlhabqvS8D-EhblxqpnhrdifjrIQJ-1: 31921 OuepmtvS8Z-EwpvfvmyjzpmrpvAEG-4: 82121PxggvyhI4A-LaehqmcilgdgvzbMNW-2: 56065 VepvhzhO7T-GwdpxfbyutvujkaGZX-5: 44866JclknnaX6I-PvmqpbpwkbbjcdbVJE-9: 36870 ZqiwaduL9Q-CclthsnwmihunbtRGS-2: 12126LcrwnfoB2I-GkzwpqkabigpyovLLB-9: 22818 UnknownGynecology [facility]: 690590078 CPT-4: O70Gltenex Reason For Visit No Reason For Visit data Plan of Care Planned Activity Notes Codes Status Date Patient Education: Patient Medication Summary Qzzpmwvsl42/14/2023ppointment: Anna Culver WPtel: [phone] [place] [address] CQR6017110/05/2022ppointment: Anna Culver WPtel: [address] [place] [address] [id number]: Anna Culver WPtel: [address] [place] [address] [id number]: Anna Culver WPtel: [address] [place] [address] [id number]: Anna Culver WPtel: [address] [place] [address] [id number]: Anna Culver WPtel: [address] [place] [address] [id number]: Anna Culver WPtel: [address] [place] [address] DIS4400610/17/2021ppointment: Anna Culver WPtel: [address] [place], [place] [id number]: Chivo Bishop WPtel: [phone] [place] [address] [id number]: Chivo Bishop WPtel: [address] [place] [address] [id number]: Mikey Nair WPtel: [address] [facility] [id number]: Chivo Bishop WPtel: [address] [place] [address] [id number]: Chivo Bishop WPtel: [address] [place] [address] [id number]: Chivo Bishop WPtel: [phone] [place] [address] USETV111/11/2020ppointment: Chivo Bishop WPtel: [address] [place] [address] USETV110/13/2020ppointment: Chivo Bishop WPtel: [address] [place] [address] USETV1ppointment: Chivo Bishop WPtel: [address] [place] [address] PGMJMR8106/10/2021ppointment: Anna Culver WPtel: [address] [place] [address] USETV06/02/2021ppointment: Chivo Bishop WPtel: [address] [place] [address] USETV05/20/2021ppointment: Anna Culver WPtel: [phone] [place] [address] USETV04/28/2021ppointment: Chivo Bishop WPtel: [phone] [place] [address] [place] [address] USETV04/15/2021ppointment: Anna Culver WPtel: [address] [place] [address] [id number]: Anna Culver WPtel: [phone] [place] [address] USET03/24/2021ppointment: Anna Culver WPtel: [phone] [place] [address] USETV03/13/2021ppointment: Anna Culver WPtel: [address] [place] [address] [id number]: Chivo Bishop WPtel: [address] [place] [address] [id number]: Anna Culver WPtel: [address] [place] [address] USETV01/13/2021ppointment: Anna Culver WPtel: [address] [place] [address] [id number]: Chivo Bishop WPtel: [address] [place] [address] USETV11/28/2020ppointment: Anna Culver WPtel: [address] [place] [address] USETV11/24/2020ppointment: Anna Culver WPtel: [address] [place] [address] [id number]/1Appointment: Anan Culver WPtel: [address] [place] [address] [address] [address] UAJ1056611/25/2019Appointment: Anna Culver WPtel: [address] [place] [address] USETV110/26/2019Appointment: Anna Culver WPtel: [address] [place] [address] USETV110/19/2019Appointment: Anna Culver WPtel: [address] [place] [address] USETV1Appointment: Anna Culver WPtel: [phone] [place] [address] USETV1Appointment: Gianna Birmingham MCtel: [address] [facility] [address] [id number]: Anna Culver WPtel: [address] [place] [address] [id number]: Anna Culver WPtel: [address] [place] [address] [place] [address] [id number]: Anna Culver WPtel: [address] [place] [address] [place] [address] [id number]/Appointment: Anna Culver WPtel: [address] [place] [address] [place] [address] [id number]: Anna Culver WPtel: [phone] [place] [address] [place] [address] [id number]: Anna Culver WPtel: [address] [address] [id number]: Anna Culver WPtel: [address] [place] [address] [id number]: Anna Culver WPtel: [address] [place] [address] [id number]: Anna Culver WPtel: [address] [place] [address] [id number]: Anna Culver WPtel: [address] [place] [address] [id number]: Sudha Hernadez WPtel: [address] [facility] [address] [id number]: Sudha Hernadez WPtel: [address] [facility] [address] [id number] [id number]: Charlene Oropeza WPtel: [address] [facility] [address] [id number]: Danny AowaruD45032/26/2019Appointment: Charlene Oropeza WPtel: [address] [facility] [address] [id number]: Javy Rasta WPtel: [address] [facility] [address] [id number] [id number]: Javy Rasta WPtel: [address] [facility] [address] EfnwtnVL[address] [id number]: Javy Rasta WPtel: [address] [facility] [address] [id number] [id number]: Rasta Palafox WPtel: [address] [facility] [address] [id number]: Pending Gynecology Referral InformationReferral ProcessedReferral: Pending Pulmonology Referral InformationReferralProcessed Referral: Pending Psychiatry Referral InformationReferralInitiatedReferral: Pending Respiratory Services Referral InformationReferralInitiatedReferral: Pending Ophthalmology Referral InformationReferralInitiatedReferral: [facility] WPtel: [address] [place] [address] [address] [facility] USWriter placed a call out to the patient to notify her that it has been recommended that she be seenby a urologist. Patient agreed to be seen, does not have a provider of choice and no transportationissues. It Software Developer faxed referral and clinical notes to [facility] in [place], [place] near the patient's home. Patient to [...] seen and prefers a provider in the [place] or [facility]. It Software Developer placed a call out to everyone listed in the area and the only location that was able to accept the patient's insurance was [place] [address] [place] [address] and spoke with Maylin. Maylin asked that the patient's referral, face sheet and visit notes be faxed to . It Software Developer faxed over requested documents. Patient appointment confirmation letter generated and mailed to her home address. Patient to call to schedule an appointment.ProcessedReferral: [facility] WPtel: [address] [place] [address] 800 [id number] USPatient notified that it has been advised that she be seen by Neurology. Patient agreed to be seen and prefers to be seen by a provider in the [place], [place] area. Patient denies any concerns with transportation, and prefers to schedule her own appointment. It Software Developer placed a call out to [facility] and spoke with Neeraj [...]
--- OUTSIDE RECORDS SUMMARY | 2024-01-03 23:28 | XMS_ITS | CCD ---
Author Name Leena Culver NP Address [id number] [place] [address] [place] [id number] Phone Organization [facility] Phone Care Team Providers Care Chain Maker Name Role Phone Anna Culver NP Primary Care Provider Unav ailable Unavailable Chronic Care Management Unavaila ble Summary Purpose DataExchange Insurance Providers Payer name Policy type / Coverage type Covered republican ID Effective Begin Date Effective End Date SUKI MAYO [id number] Unknown Unknown Family history Mother Diagnosis Age [...] 05/31/2018 Education level Unknown Some High School 10th05/31/20182219KpvlfvkpfkFnadmvfWieghesjbp33/29/2018Tobacco historySNOMED CT: 600013127Zij never smoked or chewed mjauicy4305/31/2018Alcohol historySNOMED CT: 754120145Pmabv drinks [id number]/31/2018Has the patient ever used illegal drugs? UnknownHas never used illegal drugs05/31/2018DNR Order/ Advanced Directive UnknownFull Code05/31/2018 Allergies, Adverse Reactions, Alerts Substance Reaction Codes Entered Date Inactivated Date Status OxyContin itch, RxNorm: 749732 01/13/2021 No Inactive Da te Active *No known food allergies Olmonvz0609/06/2018No Inactive DateActiveMethylprednisolonehivesRxNorm: 6902 09/06/2018No Inactive DateActive Problems Condition Codes Effective Dates Condition St atus Encounter for immunization ICD-10: Z23 ICD-9: V04.8111/ctiveHypertensive heart disease without heart failure ICD-10: I11.9 ICD-9: 402.9003/ctiveRight foot painICD-10: M79.671 ICD-9: 729.511/ctiveType 2 diabetes mellitus with hyperglycemia, without long-term current use of insulinICD-10: E11.65 ICD-9: 250.0011/ctiveAdult BMI 50.0-59.9 kg/sq mICD-10: Z68.43 ICD-9: V85.4308/ActiveMajor depression, recurrentICD-10: F33.9 ICD-9: 296.3009/ctiveType 2 diabetes [...] Fill Instructions Januvia 50 mg tablet RxNorm: 999376 Take 1 Tablet(s) Oral two times a day 023 2023 Inactive famotidine 20 mg tablet RxNorm: 993151 TAKE 1 TABLET BY MOUTH EACH MORNING 023 2023 Active Januvia 25 mg tablet RxNorm: 909821 Take 1 Tablet(s) Oral every day 023 2022 Inactive Ozempic 1 mg/dose (4 mg/3 mL) subcutaneous pen injector RxNorm: 5803490 INJECT 1 UNITS DOSE SUBCUTANEOUSLY ON TUESDAY OF EACH WEEK 023 2022 Inactive cetirizine 10 mg tablet RxNorm: 8470320 TAKE (1) TABLET BY MOUTH DAILY 023 2023 Inactive amoxicillin 500 mg tablet RxNorm: 480851 Take 1 Tablet(s) Oral two times a day 023 2022 Inactive omeprazole 40 mg capsule,delayed release RxNorm: 764762 Take 1 Capsule(s) Oral at bed time 023 2022 Inactive Easy Touch Alcohol Prep Pads RxNorm: 837680 USE EACH MORNING 023 2024 Active montelukast 10 mg tablet RxNorm: 241132 Take 1 Tablet(s) Oral every day 023 2022 Inactive gabapentin 300 mg capsule RxNorm: 508204 Take 1 Capsule(s) Oral three times a day 023 2022 Inactive metformin ER 500 mg 24 hr tablet,extended release RxNorm: 4573002 Take 1 Tablet(s) Oral every day with the evening meal 023 2022 Inactive famotidine 20 mg tablet RxNorm: 075230 Take 1 Tablet(s) Oral every morning 023 2022 Inactive levothyroxine 50 mcg tablet RxNorm: 068588 Take 1 Tablet(s) Oral every day 023 2023 [facility] Requested hydrochlorothiazide 25 mg tablet RxNorm: 554584 Take 1 Tablet(s) Oral every day 023 2023 [facility] Requested atorvastatin 20 mg tablet RxNorm: 854461 Take 1 Tablet(s) Oral every night at bedtime 023 2023 Active Macrobid 100 mg capsule RxNorm: 379353 1 Capsule(s) Oral every 12 hours with food 023 2022 Inactive omeprazole 40 mg capsule,delayed release RxNorm: 180448 Take 1 Capsule(s) Oral every night at bedtime 023 2022 Inactive trazodone 50 mg tablet RxNorm: 064733 Administer 1 Tablet(s) Oral every night at bedtime 023 No Stop Date Active cholecalciferol (vitamin D3) 50 mcg (2,000 unit) tablet RxNorm: 168624 Take 1 Tablet(s) Oral every day 023 2023 Active Ozempic 1 mg/dose (4 mg/3 mL) subcutaneous pen injector RxNorm: 5882958 USE 1 UNIT DOSE SUBCUTANEOUSLY ON TUE OF EACH WEEK 023 2022 Inactive lisinopril 2.5 mg tablet RxNorm: 790746 Take 1 Tablet(s) Oral every day 023 2022 [facility] Requested Ozempic 1 mg/dose (4 mg/3 mL) subcutaneous pen injector RxNorm: 6839296 USE 1 UNIT DOSE SUBCUTANEOUSLY ON Tue EACH WEEK 023 2022 Inactive omeprazole 40 mg capsule,delayed release RxNorm: 529518 Take 1 Capsule(s) Oral every night at bedtime 023 2022 Inactive gabapentin 300 mg capsule RxNorm: 776665 Take 1 Capsule(s) Oral three times a day 023 2022 Inactive montelukast 10 mg tablet RxNorm: 415534 Take 1 Tablet(s) Oral every day 023 2022 Inactive omeprazole 20 mg capsule,delayed release RxNorm: 273074 Take 1 Capsule(s) Oral every evening 2022 Inactive Alcohol Prep Pads RxNorm: 013685 USE EACH MORNING 022 2021 Inactive E11.42 clotrimazole 1 % topical cream RxNorm: 908052 Apply 1 Application Topical two times a day as needed apply to affected area(s) twice daily until healed 2021 Inactive Victoza 2-Sebastián 0.6 mg/0.1 mL (18 mg/3 mL) subcutaneous pen injector RxNorm: 149354 Inject 0.6-1.8 Milligram(s) Subcutaneous once a week Inject 0.6mg/0.1ml week one, 1.2mg/0.2ml week two, 1.8/0.3ml weekly thereafter 2021 Inactive ibuprofen 800 mg tablet RxNorm: 521374 Take 1 Tablet(s) Oral Q8H as needed for pain take with food No Stop Date Active Ozempic 1 mg/dose (4 mg/3 mL) subcutaneous pen injector RxNorm: 6818257 Take 1 Unit Dose Subcutaneous QWeek Tuesday 022 2021 Inactive lisinopril 2.5 mg tablet RxNorm: 460245 Take 1 Tablet(s) Oral every day 022 2021 Inactive lisinopril 2.5 mg tablet RxNorm: 626816 Take 1 Tablet(s) Oral every day 022 2022 Inactive hydrochlorothiazide 25 mg tablet RxNorm: 183526 Take 1 Tablet(s) Oral every day 022 2021 Inactive Ozempic 1 mg/dose (4 mg/3 mL) subcutaneous pen injector RxNorm: 9242140 Take 1 Unit Dose Subcutaneous QWeek 022 2021 Inactive famotidine 20 mg tablet RxNorm: 693845 Take 1 Tablet(s) Oral every morning 2021 Inactive levothyroxine 50 mcg tablet RxNorm: 327189 Take 1 Tablet(s) Oral every day 2021 Inactive atorvastatin 20 mg tablet RxNorm: 059692 Take 1 Tablet(s) Oral every night at bedtime 2021 Inactive Cleocin T 1 % lotion RxNorm: 529298 Take 2 Gram(s) Topical every day 2021 Inactive Cleocin T 1 % lotion RxNorm: 330476 Take 2 Gram(s) Topical every day 2021 Inactive Ozempic 1 mg/dose (4 mg/3 mL) subcutaneous pen injector RxNorm: 6410162 Take 1 Unit Dose Subcutaneous QWeek 022 2021 Inactive Ozempic 0.25 mg or 0.5 mg (2 mg/1.5 mL) subcutaneous pen injector RxNorm: 3712237 INJECT 0.5 MGS SUBCUTANEOUSLY EVERY WEEK 022 2021 Inactive omeprazole 20 mg capsule,delayed release RxNorm: 586333 Take 1 Capsule(s) Oral every evening 2021 Inactive levothyroxine 50 mcg tablet RxNorm: 152455 Take 1 Tablet(s) Oral every day 022 2021 Inactive atorvastatin 20 mg tablet RxNorm: 992360 Take 1 Tablet(s) Oral every night at bedtime 2021 Inactive This refill negates all other refills of this medication lisinopril 2.5 mg tablet RxNorm: 938223 Take 1 Tablet(s) Oral every day 022 2021 Inactive gabapentin 300 mg capsule RxNorm: 135391 Take 1 Capsule(s) Oral three times a day 2021 Inactive montelukast 10 mg tablet RxNorm: 686818 Take 1 Tablet(s) Oral every day 2021 Inactive Myrbetriq 50 mg tablet,extended release RxNorm: 9924842 1 Tablet(s) Oral every day No Stop Date Active cholecalciferol (vitamin D3) 50 mcg (2,000 unit) tablet RxNorm: 204001 Take 1 Tablet(s) Oral every day 2022 Inactive Ozempic 0.25 mg or 0.5 mg (2 mg/1.5 mL) subcutaneous pen injector RxNorm: 0877151 inject 0.5 milligrams subcutaneously every week 2021 Inactive Ozempic 0.25 mg or 0.5 mg (2 mg/1.5 mL) subcutaneous pen injector RxNorm: 4906140 Take 0.5 Capsule(s) Injection once a week 2021 Inactive omeprazole 20 mg capsule,delayed release RxNorm: 183954 Take 1 Capsule(s) Oral every evening 2020 Inactive Ozempic 0.25 mg or 0.5 mg (2 mg/1.5 mL) subcutaneous pen injector RxNorm: 0509790 Take 0.25 Milligram(s) Subcutaneous once a week 2021 Inactive Easy Touch Alcohol Prep Pads RxNorm: 397386 USE DIRECTED EACH MORNING 2021 Inactive Probiotic 10 billion cell capsule RxNorm: 4541094 Take 1 Capsule(s) Oral every day 021 2021 Inactive levothyroxine 50 mcg tablet RxNorm: 573267 Take 1 Tablet(s) Oral every day 2020 Inactive Acid Poultry Farmer Meat (famotidine) 20 mg tablet RxNorm: 987621 Take 1 Tablet(s) Oral every morning 021 2020 Inactive Heartburn Relief (famotidine) 10 mg tablet RxNorm: 563081 Take 1 Tablet(s) Oral QAM 021 2020 Inactive levothyroxine 50 mcg tablet RxNorm: 699319 Take 1 Tablet(s) Oral QD 021 2020 Inactive Singulair 10 mg tablet RxNorm: 391007 TAKE (1) TABLET BY MOUTH DAILY 2020 Inactive metformin 1,000 mg tablet RxNorm: 512671 1 Tablet(s) Oral two times a day 2021 Inactive lisinopril 2.5 mg tablet RxNorm: 458485 Take 1 Tablet(s) Oral every day 021 2020 Inactive hydrochlorothiazide 25 mg tablet RxNorm: 597267 Take 1 Tablet(s) Oral every day 021 2020 Inactive ondansetron 4 mg disintegrating tablet RxNorm: 957614 1 Tablet(s) Oral two times a day 021 2020 Inactive Sudafed 12 Hour 120 mg tablet,extended release RxNorm: 6570576 TAKE 1 TABLET BY MOUTH EVERY 12 HOURS NEEDED 2021 Inactive Heartburn Relief (famotidine) 10 mg tablet RxNorm: 610663 Take 1 Tablet(s) Oral every morning 021 2020 Inactive omeprazole 20 mg capsule,delayed release RxNorm: 234861 1 Capsule(s) Oral every evening 021 2020 Inactive sertraline 100 mg tablet RxNorm: 124652 2 Tablet(s) Oral every day 021 2020 Inactive levothyroxine 50 mcg tablet RxNorm: 173268 TAKE (1) TABLET BY MOUTH DAILY 021 2020 Inactive metformin 500 mg tablet RxNorm: 185458 1 Tablet(s) Oral two times a day take with 500mg to equal 1000mg 021 2020 Inactive gabapentin 300 mg capsule RxNorm: 544095 TAKE 1 CAPSULE BY MOUTH THREE TIMES A DAY 021 2020 Inactive lisinopril 2.5 mg tablet RxNorm: 849402 TAKE 1 TABLET BY MOUTH DAILY 021 2020 Inactive gabapentin 300 mg capsule RxNorm: 070863 TAKE 1 CAPSULE BY MOUTH THREE TIMES A DAY 021 2020 Inactive Singulair 10 mg tablet RxNorm: 508435 TAKE (1) TABLET BY MOUTH DAILY 2020 Inactive metformin 1,000 mg tablet RxNorm: 179424 1 Tablet(s) Oral two times a day 021 2020 Inactive atorvastatin 40 mg tablet RxNorm: 344966 1 Tablet(s) Oral every day 2020 Inactive omeprazole 20 mg capsule,delayed release RxNorm: 808828 1 Capsule(s) Oral every evening 021 2020 Inactive famotidine 10 mg tablet RxNorm: 673788 1 Tablet(s) Oral every morning 021 2020 Inactive Alcohol Prep Pads RxNorm: 179332 USE EACH MORNING 021 2020 Inactive omeprazole 20 mg capsule,delayed release RxNorm: 135551 1 Capsule(s) Oral two times a day 2021 Inactive omeprazole 20 mg capsule,delayed release RxNorm: 597963 TAKE 1 CAPSULE BY MOUTH EVERY DAY 2021 Inactive Macrobid 100 mg capsule RxNorm: 962361 1 Capsule(s) Oral every 12 hours with food 2020 Inactive omeprazole 20 mg capsule,delayed release RxNorm: 301363 1 Capsule(s) Oral two times a day 020 2021 Inactive metformin 1,000 mg tablet RxNorm: 310079 1 Tablet(s) Oral two times a day 2020 Inactive start on September 11, 2020 metformin 500 mg tablet RxNorm: 955716 1 Tablet(s) Oral two times a day take with 500mg to equal 1000mg 2019 Inactive gabapentin 300 mg capsule RxNorm: 140446 TAKE 1 CAPSULE BY MOUTH THREE TIMES DAILY 2020 Inactive cetirizine 10 mg tablet RxNorm: 0744910 TAKE (1) TABLET BY MOUTH DAILY 2020 Inactive metformin 500 mg tablet RxNorm: 498343 1 Tablet(s) Oral two times a day 2019 Inactive loperamide 2 mg tablet RxNorm: 985466 1 Tablet(s) Oral as needed take one tablet after each loose stool, maximum of 8 tablets in 24 hours 2021 Inactive Sudafed 12 Hour 120 mg tablet,extended release RxNorm: 4373200 TAKE 1 TABLET BY MOUTH EVERY 12 HOURS NEEDED 2019 Inactive hydrochlorothiazide 25 mg tablet RxNorm: 173058 TAKE (1) TABLET BY MOUTH EVERY DAY 2019 Inactive omeprazole 20 mg capsule,delayed release RxNorm: 761604 TAKE 1 CAPSULE BY MOUTH EVERY DAY 2020 Inactive metformin 500 mg tablet RxNorm: 656955 1 Tablet(s) Oral every day 2019 Inactive True Metrix Glucose Test Strip RxNorm: 1 Test Strips Miscellaneous two times a day as needed No Stop Date Active metformin 500 mg tablet RxNorm: 057714 1 Tablet(s) Oral every day 2019 Inactive diclofenac sodium 75 mg tablet,delayed release RxNorm: 508482 1 Tablet(s) PO BID 2021 Inactive This refill negates all other refills of this medication Sudafed 12 Hour 120 mg tablet,extended release RxNorm: 5581876 TAKE 1 TABLET BY MOUTH EVERY 12 HOURS NEEDED 020 2019 Inactive True Metrix Glucose Test Strip RxNorm: 1 Test Strips Miscellaneous every morning 020 2019 Inactive 100/container True Metrix Glucose Test Strip RxNorm: 1 Test Strips Miscellaneous QAM 020 2019 Inactive 100/container loperamide 2 mg tablet RxNorm: 179133 1 Tablet(s) Oral as needed take one tablet after each loose stool, maximum of 8 tablets in 24 hours 020 2019 Inactive cetirizine 10 mg tablet RxNorm: 5095053 1 Tablet(s) PO daily 2019 Inactive loperamide 2 mg tablet RxNorm: 172582 1 Tablet(s) Oral as needed take one tablet after each loose stool, maximum of 8 tablets in 24 hours 020 2019 Inactive quetiapine 100 mg tablet RxNorm: 083506 1 Tablet(s) Oral every night at bedtime 2019 Inactive levothyroxine 50 mcg tablet RxNorm: 746112 1 Tablet(s) PO daily 2020 Inactive gabapentin 300 mg capsule RxNorm: 227683 1 Capsule(s) PO TID 2019 Inactive levothyroxine 50 mcg tablet RxNorm: 962769 1 Tablet(s) PO daily 2019 Inactive lisinopril 2.5 mg tablet RxNorm: 913054 1 Tablet(s) PO daily 2020 Inactive gabapentin 300 mg capsule RxNorm: 036754 1 Capsule(s) PO TID 2019 Inactive cetirizine 10 mg tablet RxNorm: 1090178 1 Tablet(s) PO daily 2019 Inactive Singulair 10 mg tablet RxNorm: 233726 1 Tablet(s) PO daily 2020 Inactive gentamicin 0.3 % eye drops RxNorm: 679925 1 Drop(s) ophthalmic (eye) four times a day 2019 Inactive gentamicin 0.3 % eye drops RxNorm: 200142 1 Drop(s) ophthalmic (eye) four times a day 2019 Inactive gentamicin 0.3 % eye drops RxNorm: 614500 1 Drop(s) ophthalmic (eye) four times a day 2019 Inactive hydrochlorothiazide 25 mg tablet RxNorm: 958774 1 Tablet(s) Oral every day 2019 Inactive Sudafed 12 Hour 120 mg tablet,extended release RxNorm: 4844825 TAKE (1) TABLET BY MOUTH EVERY 12 HOURS NEEDED 2019 Inactive loperamide 2 mg tablet RxNorm: 771193 1 Tablet(s) Oral as needed take one tablet after each loose stool, maximum of 8 tablets in 24 hours 020 2019 Inactive loperamide 2 mg tablet RxNorm: 951397 1 Tablet(s) Oral as needed take one tablet after each loose stool, maximum of 8 tablets in 24 hours 2019 Inactive atorvastatin 40 mg tablet RxNorm: 740860 1 Tablet(s) Oral every day 2020 Inactive quetiapine 100 mg tablet RxNorm: 467586 1 Tablet(s) Oral every night at bedtime 2019 Inactive sertraline 100 mg tablet RxNorm: 247174 1 Tablet(s) Oral 2019 Inactive omeprazole 20 mg capsule,delayed release RxNorm: 960421 1 Capsule(s) Oral every day 2019 Inactive amoxicillin 250 mg capsule RxNorm: 443220 1 Capsule(s) Oral three times a day 2019 Inactive multivitamin with iron-mineral tablet RxNorm: 1 Tablet(s) Oral every day 2021 Inactive cetirizine 10 mg tablet RxNorm: 5449829 1 Tablet(s) PO daily 2019 Inactive This refill negates all other refills of this medication. Please do not auto refill Singulair 10 mg tablet RxNorm: 163331 1 Tablet(s) PO daily 2019 Inactive This refill negates all other refills of this medication gabapentin 300 mg capsule RxNorm: 248073 1 Capsule(s) PO TID 2019 Inactive lisinopril 2.5 mg tablet RxNorm: 614919 1 Tablet(s) PO daily 2019 Inactive levothyroxine 50 mcg tablet RxNorm: 442775 1 Tablet(s) PO daily 2019 Inactive This refill negates all other refills of this medication hydrochlorothiazide 25 mg tablet RxNorm: 263274 1 Tablet(s) Oral every day 2019 Inactive fenugreek seed extract 500 mg capsule RxNorm: 1 Capsule(s) Oral three times a day 2021 Inactive Alcohol Prep Pads RxNorm: 801725 1 Patch TOP QAM 2020 Inactive loperamide 2 mg tablet RxNorm: 640202 1 Tablet(s) Oral as needed take one [...] 2019 Inactive hydrochlorothiazide 25 mg tablet RxNorm: 657455 1 Tablet(s) Oral every day 2019 Inactive Sudafed 12 Hour 120 mg tablet,extended release RxNorm: 2307078 1 Tablet(s) Oral every 12 hours as needed 019 2018 Inactive omeprazole 20 mg capsule,delayed release RxNorm: 665772 1 Capsule(s) Oral every day 019 2019 Inactive Sudafed 12 Hour 120 mg tablet,extended release RxNorm: 3345329 1 Tablet(s) Oral every 12 hours as needed 019 2018 Inactive pantoprazole 40 mg tablet,delayed release RxNorm: 516563 1 Tablet(s) Oral every day 019 2018 Inactive discontinue any other H2Blkr. and PPI albuterol sulfate 2.5 mg/3 mL (0.083 %) solution for nebulization RxNorm: 445331 1 Vial Inhalation every four hours as needed as needed for dyspnea 2019 Inactive 60/box. This refill negates all other refills of this medication. Please do not fill early. Please do not auto refill. Symbicort 160 mcg-4.5 mcg/actuation HFA aerosol inhaler RxNorm: 0905322 2 Puff(s) INH BID No Stop Date Active Alcohol Prep Pads RxNorm: 979529 1 Patch TOP QAM 019 2019 Inactive Ventolin HFA 90 mcg/actuation aerosol inhaler RxNorm: 589014 2 Puff(s) INH QID 2019 Inactive Please do not fill early. Please do not auto refill. This refill negates all other refills of this medication True Metrix Glucose Test Strip RxNorm: 1 Test Strips Miscellaneous QAM 019 2019 Inactive 100/container atorvastatin 40 mg tablet RxNorm: 271726 1 Tablet(s) Oral every day 019 2019 Inactive buspirone 7.5 mg tablet RxNorm: 968594 1 Tablet(s) PO BID 019 2020 Inactive This refill negates all other refills of this medication hydrochlorothiazide 12.5 mg tablet RxNorm: 762649 1 Tablet(s) PO QAM 019 2019 Inactive levmetamfetamine 50 mg nasal inhaler RxNorm: 1 Unit(s) NASAL Q3-4H Do not use more than every 3 hours or 8 times/24hours 019 2021 Inactive Please do not auto refill. This refill negates all other refills of this medication Ventolin HFA 90 mcg/actuation aerosol inhaler RxNorm: 373331 2 Puff(s) INH QID 019 2018 Inactive Please do not fill early. Please do not auto refill. This refill negates all other refills of this medication Singulair 10 mg tablet RxNorm: 378062 1 Tablet(s) PO daily 019 2019 Inactive This refill negates all other refills of this medication cetirizine 10 mg tablet RxNorm: 1738933 1 Tablet(s) PO daily 019 2019 Inactive This refill negates all other refills of this medication. Please do not auto refill levothyroxine 50 mcg tablet RxNorm: 138014 1 Tablet(s) PO daily 019 2019 Inactive This refill negates all other refills of this medication diclofenac sodium 75 mg tablet,delayed release RxNorm: 247831 1 Tablet(s) PO BID 019 2019 Inactive This refill negates all other refills of this medication ranitidine 150 mg tablet RxNorm: 213791 1 Tablet(s) PO BID 019 2018 Inactive This refill negates all other refills of this medication Calcium 600-D3 Plus (mag-zinc) 600 mg calcium-800 unit-50 mg tablet RxNorm: 1 Tablet(s) PO daily take an additonal tablet for itching. 019 2018 Inactive This refill negates all other refills of this medication albuterol sulfate 2.5 mg/3 mL (0.083 %) solution for nebulization RxNorm: 902813 1 Vial INH QID 019 2018 Inactive 60/box. This refill negates all other refills of this medication. Please do not fill early. Please do not auto refill. lisinopril 2.5 mg tablet RxNorm: 766173 1 Tablet(s) PO daily 019 2019 Inactive gabapentin 300 mg capsule RxNorm: 058447 1 Capsule(s) PO TID 019 2019 Inactive atorvastatin 20 mg tablet RxNorm: 046831 1 Tablet(s) PO QHS 019 2018 Inactive This refill negates all other refills of this medication TRUEplus Lancets 30 gauge RxNorm: 1 Lancets Miscellaneous QAM 2018 Inactive 100/box gabapentin 300 mg capsule RxNorm: 375974 1 Capsule(s) PO TID 019 2018 Inactive Flintstones Complete (iron) 18 mg iron chewable tablet RxNorm: 1 Tablet(s) PO daily 2021 Inactive This refill negates all other refills of this medication gabapentin 300 mg capsule RxNorm: 026294 1 Capsule(s) PO TID as needed 2018 Inactive True Metrix Glucose Test Strip RxNorm: 1 Test Strips Miscellaneous QAM 019 2018 Inactive 100/container Alcohol Prep Pads RxNorm: 405465 1 Patch TOP QAM 2018 Inactive TRUEplus Lancets 30 gauge RxNorm: 1 Lancets Miscellaneous QAM 019 2018 Inactive 100/box lisinopril 2.5 mg tablet RxNorm: 419321 1 Tablet(s) PO daily 2018 Inactive ranitidine 150 mg tablet RxNorm: 786970 1 Tablet(s) PO BID 2018 Inactive This refill negates all other refills of this medication albuterol sulfate 2.5 mg/3 mL (0.083 %) solution for nebulization RxNorm: 033115 1 Vial INH QID 019 2018 Inactive [...] this medication gabapentin 300 mg capsule RxNorm: 751496 1 Capsule(s) PO TID as needed 019 2018 Inactive atorvastatin 20 mg tablet RxNorm: 993779 1 Tablet(s) PO QHS 019 2018 Inactive This refill negates all other refills of this medication trazodone 50 mg tablet RxNorm: 771954 1 Tablet(s) PO QHS 019 2018 Inactive This refill negates all other refills of this medication Ventolin HFA 90 mcg/actuation aerosol inhaler RxNorm: 019972 2 Puff(s) INH QID 019 2018 Inactive Please do not fill early. Please do not auto refill. This refill negates all other refills of this medication Calcium 600-D3 Plus 600 mg calcium-800 unit-50 mg tablet RxNorm: 1 Tablet(s) PO daily take an additonal tablet for itching. 019 2018 Inactive This refill negates all other refills of this medication Singulair 10 mg tablet RxNorm: 678245 1 Tablet(s) PO daily 019 2018 Inactive This refill negates all other refills of this medication buspirone 7.5 mg tablet RxNorm: 844678 1 Tablet(s) PO BID 019 2018 Inactive This refill negates all other refills of this medication diclofenac sodium 75 mg tablet,delayed release RxNorm: 358263 1 Tablet(s) PO BID 019 2018 Inactive This refill negates all other refills of this medication hydrochlorothiazide 12.5 mg tablet RxNorm: 620552 1 Tablet(s) PO QAM 019 2018 Inactive metoprolol succinate ER 50 mg tablet,extended release 24 hr RxNorm: 031684 1 Tablet(s) PO daily 019 2018 Inactive This refill negates all other refills of this medication levothyroxine 50 mcg tablet RxNorm: 592295 1 Tablet(s) PO daily 019 2018 Inactive This refill negates all other refills of this medication cetirizine 10 mg tablet RxNorm: 2326816 1 Tablet(s) PO daily 019 2018 Inactive This refill negates all other refills of this medication. Please do not auto refill Flintstones Complete (iron) 18 mg iron chewable tablet RxNorm: 1 Tablet(s) PO daily 019 2018 Inactive This refill negates all other refills of this medication buspirone 7.5 mg tablet RxNorm: 076241 1 Tablet(s) PO BID 019 2018 Inactive cetirizine 10 mg tablet RxNorm: 0209777 1 Tablet(s) PO daily 2018 Inactive Guaiasorb DM 10 mg-100 mg/5 mL oral liquid RxNorm: 241311 10 Milliliter(s) PO As needed every 4 hr 2018 Inactive Vicks Vaporub 4.7 %-1.2 %-2.6 % topical ointment RxNorm: 8851524 1 Application TOP TID 2018 Inactive levmetamfetamine 50 mg nasal inhaler RxNorm: 1 Unit(s) NASAL Q3-4H 2017 Inactive sertraline 50 mg tablet RxNorm: 999399 1 Tablet(s) PO daily 018 2018 Inactive Please note dose trazodone 50 mg tablet RxNorm: 254529 1 Tablet(s) PO QHS 018 2018 Inactive sertraline 50 mg tablet RxNorm: 400488 1 Tablet(s) PO daily 018 2017 Inactive amoxicillin 500 mg tablet RxNorm: 613394 1 Tablet(s) PO Q12H 018 2017 Inactive albuterol sulfate 2.5 mg/3 mL (0.083 %) solution for nebulization RxNorm: 948474 1 Vial INH QID 018 2018 Inactive 60/box. Please do not fill early. Please do not auto refill. Prozac 10 mg capsule RxNorm: 361216 1 Capsule(s) PO daily 018 2017 Inactive buspirone 7.5 mg tablet RxNorm: 406779 1 Tablet(s) PO BID 018 2018 Inactive gabapentin 300 mg capsule RxNorm: 362671 1 Capsule(s) PO TID as needed 2018 Inactive hydrochlorothiazide 12.5 mg tablet RxNorm: 908509 1 Tablet(s) PO QAM 2018 Inactive ranitidine 150 mg tablet RxNorm: 910951 1 Tablet(s) PO BID 018 2018 Inactive Macrobid 100 mg capsule RxNorm: 212104 1 Capsule(s) PO Q12H 018 2017 Inactive Singulair 10 mg tablet RxNorm: 155060 1 Tablet(s) PO daily 018 2018 Inactive Ventolin HFA 90 mcg/actuation aerosol inhaler RxNorm: 3728705 2 Puff(s) INH QID 018 2018 Inactive Singulair 10 mg tablet RxNorm: 258838 1 Tablet(s) PO daily 018 2017 Inactive buspirone 7.5 mg tablet RxNorm: 671923 1 Tablet(s) PO BID 018 2017 Inactive Prozac 10 mg capsule RxNorm: 471775 1 Capsule(s) PO daily 018 2017 Inactive diclofenac sodium 75 mg tablet,delayed release RxNorm: 167719 1 Tablet(s) PO BID 018 2017 Inactive lisinopril 2.5 mg tablet RxNorm: 911105 1 Tablet(s) PO daily 018 2017 Inactive Neilmed Pediatric Sinus Rinse Refill packet RxNorm: 1 Unit Dose NASAL PRN 018 2021 Inactive metoprolol succinate ER 50 mg tablet,extended release 24 hr RxNorm: 643711 1 Tablet(s) PO daily 018 2017 Inactive levothyroxine 50 mcg tablet RxNorm: 165830 1 Tablet(s) PO daily 018 2017 Inactive TRUEplus Lancets 30 gauge RxNorm: 1 Lancets Miscellaneous QAM 018 2017 Inactive 100/box Ventolin HFA 90 mcg/actuation aerosol inhaler RxNorm: 578263 2 Puff(s) INH QID 018 2017 Inactive Aleve 220 mg capsule RxNorm: 1624464 1 Capsule(s) PO BID 018 2018 Inactive ranitidine 150 mg tablet RxNorm: 342646 1 Tablet(s) PO BID 018 2017 Inactive gabapentin 300 mg capsule RxNorm: 270604 1 Capsule(s) PO TID as needed 018 2017 Inactive atorvastatin 20 mg tablet RxNorm: 058208 1 Tablet(s) PO QHS 018 2017 Inactive True Metrix Glucose Test Strip RxNorm: 1 [facility] 018 2017 Inactive 50/container Calcium 600-D3 Plus 600 mg calcium-800 unit-50 mg tablet RxNorm: 1 Tablet(s) PO daily take an additonal tablet for itching. 018 2017 Inactive hydrochlorothiazide 12.5 mg tablet RxNorm: 868980 1 Tablet(s) PO QAM 018 2017 Inactive Flintstones Complete (iron) 18 mg iron chewable tablet RxNorm: 1 Tablet(s) PO daily 018 2017 Inactive True Metrix Glucose Meter RxNorm: miscellaneous 019 2018 Inactive sertraline 50 mg tablet RxNorm: 442613 1 Tablet(s) PO daily 020 2019 Inactive loperamide 2 mg tablet RxNorm: 250348 oral 019 2018 Inactive d-mannose oral powder RxNorm: PO 018 2021 Inactive Symbicort 160 mcg-4.5 mcg/actuation HFA aerosol inhaler RxNorm: 4659655 2 Puff(s) INH BID 019 2018 Inactive Medication Administered No Medication Administered data Procedures Procedure Codes Date FLUCELVAX PFS VAC NO PRSV 0.5 ML IM CPT-4: 66527 08/05/2023 Admin flu virus vaccine CPT-4: G0008 08/05/20 Patient Health Questionnaire CPT-4: DPHQ Electrocardiogram CPT-4: 91082 06/24/2023 Urinalysis, dip stick CPT-4: 99693 05/04/2023 [place] Assessment CPT-4: DSWA 01/02 Fall Risk Assessment CPT-4: DFRA 01/27/2023 Hypertension CPT-4: HTN 01/27/2023 Patient Health Questionnaire CPT-4: DPHQ Pain Screening CPT-4: PAS 2022 Tobacco Assessment/Screening CPT-4: TCA Hypertension CPT-4: HTN 08/17/2022 [place] Assessment CPT-4: DSWA 04/02 Patient Health [...] CPT-4: VACP Fall Risk Assessment SNOMED CT: 63233583 4 CPT-4: DFRA01/13/2021[place] AssessmentCPT-4: DSWA03/17/2021Urinalysis, dip stickCPT-4: 6316416Patient Health QuestionnaireCPT-4: DPHQ 08/19/2020ElectrocardiogramCPT-4: 3899947Tobacco Assessment/Screening CPT-4: TCA01/01/2020Fall Risk AssessmentSNOMED CT: 220011771 CPT-4: DFRA01/01/2020Functional AssessmentCPT-4: DFA01/01/2020[place] AssessmentCPT-4: DSWA11/28/2019Patient Health QuestionnaireCPT-4: DPHQ11/28/2019 [place] AssessmentCPT-4: DSWA10/17/2019HypertensionCPT-4: HTN10/17/[address]: 303894446 CPT-4: DFRA09/19/2019Functional AssessmentCPT-4: DFA111/20/2018Urinalysis, dip stickCPT-4: 5360385Tobacco Assessment/ScreeningCPT-4: TCA05/24/2019 Patient Health QuestionnaireCPT-4: DPHQ05/24/2019AHA/REBECCA Classification AssessmentCPT-4: DAHA04/25/2019Controlled Substance ReportCPT-4: CTRSU04/25/2019 Urinalysis, dip stickCPT-4: 785971703/28/2019Urinalysis, dip stickCPT-4: 23157 03/28/20192919U6Q-UcueulunhsatginGGM-4: 04256ReqryigJ8B-LzqkukycrybzjauJAL-4: 68211 ApyyotwQ7R-ZulnuowdkbneephIOA-8: 49591DjiifodD3P-XetsvoaulzmurqmFYR-6: 90290 WgxdnevZ7N-NjogzfbfsnklxbbVKT-2: 69892RakirxeZ8C-YuxaocvopsrzldkERA-2: 38130 GgdletiN4G-WtvuvltjcnafemiUIK-3: 96608IwplcsiZ6F-SicdxzmreelqamoJZO-2: 78634 VvxmmaqO5I-YkdikfsttwnmacbAZC-5: 95383PrxfjbfX8P-LjmsycmgmyzgeswTFB-4: 69168 KetaeyoS6Z-MsxvwgvynwhzjlwJEQ-9: 54941IedlbphW1U-EkymafowgmkuatzBFS-2: 06353 UnknownGynecology [facility]SN[facility]: 542415375 CPT-4: V90Rhrfbeq Vital Signs Date Vital 08/05/2023 Blood Pressure 1: 118/84 Code: 8480-6 BMI: 51.3 Code: 27181-3 Heart Rate 1: 70 bpm Height: 4'11 Code: 8302-2 Respiratory Rate: 16 bpm SpO2: 98% Temperature: 36.4 (C) / 97.5 (F) Weight: 254 lbs Code: 85857-9 Reason For Visit Reason For Visit Effective Dates Notes HTN 08/05/2023 weight gain/obesity 08/05/2023 diabetes mellitus 08/05/2023 joint complaint 08/05/2023 Interim health update 08/05/2023 Encounters Encounter Performer Location Location Address Codes [place] ([id number]) Home or Residence Vi sit Est Pt - High Level, 60 mins Diagnosis: Type 2 diabetes mellitus with hyperglycemia, without long-term current use of insulin[ICD10: E11.65] Diagnosis: Right foot pain[ICD10: M79.671] Diagnosis: Hypertensive heart disease without heart failure[ICD10: I11.9] Diagnosis: Encounter for immunization[ICD10: Z23]Anna Bourgeois Office [address] [place] [address] 26460UOY-0: [id number] Plan of Care Planned Activity Notes Codes [...] send note to Dr. Wayne for review 08/05/2023ati Education: XyiaadxxYxyeqowib28/03/2023atient Education: ZfathekhimmzSlkokfdxj52/03/2023atient Education: DtgaocyZzkjlguau23/03/2023 Patient Education: Weight CwnaYzmmturgv04/03/2023atient Education: Patient Medication OyoerzoIbyvtedux29/03/2023are Plan: PQVLivfkag04/03/2023ppointment: Anna Culver WPtel: [phone] [place] [address] [id number]: Anna Culver WPtel: [address] [place] [address] [id number]: Anna Culver WPtel: [address] [place] [address] [id number]: Anna Culver WPtel: [address] [place] [address] [id number]: Anna Culver WPtel: [address] [place] [address] [id number]: Anna Culver WPtel: [address] [place] [address] [id number]/17/2021ppointment: Anna Culver WPtel: [address] [place] [address] [id number]: Chivo Bishop WPtel: [phone] [place] [address] [id number]: Chivo Bishop WPtel: [address] [place] [address] [id number]: MarcelaisabelaMikey WPtel: [address] OlzvduNT[address] [id number]: Chivo Bishop WPtel: [address] [place] [address] [id number]: Chivo Bishop WPtel: [address] [place] [address] [id number]: Chivo Bishop WPtel: [address] [place] [address] USETV111/11/2020ppointment: Chivo Bishop WPtel: [address] [place] [address] USETV110/13/2020ppointment: Chivo Bishop WPtel: [address] [place] [address] USETV1ppointment: Chivo Bishop WPtel: [address] [place] [address] ZLXTFQ5606/10/2021ppointment: Anna Culver WPtel: [address] [place] [address] USETV06/02/2021ppointment: Chivo Bishop WPtel: [address] [place] [address] USETV05/20/2021ppointment: Anna Culver WPtel: [address] [place] [address] USETV04/28/2021ppointment: Chivo Bishop WPtel: [phone] [place] [address] USETV/ppointment: Anna Culver WPtel: [phone] [place] [address] [id number]: Anna Culver WPtel: [phone] [place] [address] USETV03/24/2021ppointment: Anna Culver WPtel: [phone] [place] [address] USETV03/13/2021ppointment: Anna Culver WPtel: [phone] [place] [address] [id number]: Chivo Bishop WPtel: [address] [place] [address] [id number]: Anna Culver WPtel: [phone] [place] [address] USET01/13/2021ppointment: Anna Culver WPtel: [address] [place] [address] [id number]: Chivo Bishop WPtel: [address] [place] [address] USETV11/28/2020ppointment: Anna Culver WPtel: [phone] [place] [address] USETV11/24/2020ppointment: Anna Culver WPtel: [phone] [place] [address] [id number]: Anna Culver WPtel: [phone] [place] [address] [place] [address] [id number]: Anna Culver WPtel: [address] [place] [address] [address] [place] [address] USETV110/26/2019Appointment: Anna Culver WPtel: [address] [place] [address] [address] [place] [address] USETV110/19/2019Appointment: Anna Culver WPtel: [phone] [place] [address] USETV1Appointment: Anna Culver WPtel: [phone] [place] [address] [address] [place] [address] USETV10Appointment: Gianna Birmingham: [address] [facility] [address] [id number] LWSCEB7407/02/2020Appointment: Anna Culver WPtel: [address] [place] [address] [id number]: Anna Culver WPtel: [phone] [place] [address] [place] [address] [id number]: Anna Culver WPtel: [address] [place] [address] [place] [address] [id number]: Anna Culver WPtel: [phone] [place] [address] [place] [address] [id number]: Anna Culver WPtel: [phone] [place] [address] [place] [address] [id number]/Appointment: Anna Culver WPtel: [phone] [place] [address] [place] [address] [id number]: Anna Culver WPtel: [phone] [place] [address] [place] [address] [id number]: Anna Culver WPtel: [phone] [place] [address] [id number]: Anna Culver WPtel: [address] [place] [address] [id number]: Anna Culver WPtel: [address] [place] [address] [id number]: Sudha Hernadez WPtel: [address] [facility] [address] [id number]: Sudha Hernadez WPtel: [address] [facility] [id number]: Charlene Oropeza WPtel: [address] [facility] [id number]: Bianca DelgadoLooezuD09667/26/2019Appointment: Charlene Oropeza WPtel: [address] [facility] [address] [id number]: Haupricht, Rasta WPtel: [address] [facility] [address] [id number]: Haupricht, Rasta WPtel: [address] [facility] [address] [id number]: Haupricht, Rasta WPtel: [address] [facility] [address] [id number]: Haupricht, Rasta WPtel: [address] [facility] [address] [id number]: Pending Gynecology Referral InformationReferral ProcessedReferral: Pending Pulmonology Referral InformationReferralProcessed Referral: Pending Psychiatry Referral InformationReferralInitiatedReferral: Pending Respiratory Services Referral InformationReferralInitiatedReferral: Pending Ophthalmology Referral InformationReferralInitiatedReferral: [facility] WPtel: [address] [facility] [address] [facility] USWriter placed a call out to the patient to notify her that it has been recommended that she be seenby a urologist. Patient agreed to be seen, does not have a provider of choice and no transportationissues. [employer] faxed referral and clinical notes to [facility] in [place], [place] near the patient's home. Patient to [...] seen and prefers a provider in the [place] or [place] area. [employer] placed a call out to everyone listed in the area and the only location that was able to accept the patient's insurance was [address] [phone] and spoke with Maylin. Maylin asked that the patient's referral, face sheet and visit notes be faxed to . [employer] faxed over requested documents. Patient appointment confirmation letter generated and mailed to her home address. Patient to call to schedule an appointment.ProcessedReferral: [facility] WPtel: [address] [facility] [address] [id number] USPatient notified that it has been advised that she be seen by Neurology. Patient agreed to be seen and prefers to be seen by a provider in the [place], [place] area. Patient denies any concerns with transportation, and prefers to schedule her own appointment. [employer] placed a call out to [facility] and spoke with Neeraj P: who confirmed that their office is able to acceptnew patients and the patient's insurance. After confirming the providers fax number, adjusto writer operator faxed over the patient's referral, and [...] Will send note to Dr. Wayne for wfvrrg7208/05/2023 Medical Equipment No Medical Equipment data Advance Directives No Advance Directive data
--- OUTSIDE RECORDS SUMMARY | 2024-01-03 23:28 | XMS_ITS | CCD ---
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 Edge Stripper Name Role Phone Palomo KING, Anna Primary Care Provider Unav ailable Unavailable Chronic Care Management Unavaila ble Summary Purpose DataExchange Insurance Providers Payer name Policy type / Coverage type Covered alliance party ID Effective Begin Date Effective End Date [facility] [id number] Unknown Unknown Family history Mother Diagnosis Age [...] 05/31/2018 Education level Unknown Some High School 10th05/31/20183737RrwfyyoicbUfeiocgIvyqnuhpim56/29/2018Tobacco historySNOMED CT: 114920892Qhb never smoked or chewed voaxtzj9305/31/2018Alcohol historySNOMED CT: 806915115Sqdeu drinks yjiycyu4605/31/2018Has the patient ever used illegal drugs? UnknownHas never used illegal drugs05/31/2018DNR Order/ Advanced Directive UnknownFull Code05/31/2018 Allergies, Adverse Reactions, Alerts Substance Reaction Codes Entered Date Inactivated Date Status OxyContin itch, RxNorm: 023598 01/13/2021 No Inactive Da te Active *No known food allergies Cbdejvs5809/06/2018No Inactive DateActiveMethylprednisolonehivesRxNorm: 6902 09/06/2018No Inactive DateActive Problems Condition Codes Effective Dates Condition St atus Hypertensive heart disease without heart failure ICD-10: I11.9 ICD-9: 402.9003/ctiveType 2 diabetes mellitus with peripheral neuropathy ICD-10: E11.42 ICD-9: 250.6002ActiveUpper respiratory infectionICD-10: J06.9 ICD-9: 465.912/ctiveEncounter for immunizationICD-10: Z23 ICD-9: V04.8111/ctiveRight foot painICD-10: M79.671 ICD-9: 729.511/ctiveType 2 diabetes mellitus with hyperglycemia, without long-term current use of insulinICD-10: E11.65 ICD-9: 250.0011/ctiveAdult BMI 50.0-59.9 kg/sq mICD-10: Z68.43 ICD-9: V85.4308/ActiveMajor depression, recurrentICD-10: F33.9 ICD-9: 296.3009/ctiveAllergic rhinitisICD-10: J30.9 [...] ICD-9: V79.004/1ResolvedAnorexiaICD-10: R63.0 ICD-9: 783.003/1ResolvedBlisterICD-10: T14.8XXA ICD-9: 919.esolvedChronic kidney [...] UXZ.01 ICD-9: XZ0.107ResolvedPatient not seenICD-10: UXZ.01 ICD-9: UXZ.0112/1ResolvedSyncope and collapseICD-10: R55 ICD-9: 780.ActiveUrinary retention with incomplete bladder emptying ICD-10: R33.9 ICD-9: 788.2101ActiveApnea, not elsewhere classifiedICD-10: R06.81 ICD-9: 786.0305/10/2018InactiveChest pain, unspecifiedICD-10: R07.9 ICD-9: 786.5002/InactiveChronic kidney disease, unspecifiedICD-10: N18.9 ICD-9: 585.909/InactiveEncounter for immunizationICD-10: Z23 ICD-9: V03.907/InactiveEncounter for preprocedural cardiovascular examinationICD-10: Z01.810 ICD-9: V72.8106/InactiveHeadacheICD-10: R51 ICD-9: 784.001InactiveOther longterm (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ICD-10: Z79.899 ICD-9: V58.6907/InactiveType 2 [...] Instructions omeprazole 40 mg capsule,delayed release RxNorm: 822229 Take 1 Capsule(s) Oral HS 024 2023 Active Januvia 100 mg tablet RxNorm: 756744 Take 1 Tablet(s) Oral every day 023 2023 Active amoxicillin 250 mg capsule RxNorm: 032013 Take 1 Capsule(s) Oral three times a day 2022 Inactive amoxicillin 500 mg tablet RxNorm: 615671 Take 1 Tablet(s) Oral three times a day 2022 Inactive Ozempic 1 mg/dose (4 mg/3 mL) subcutaneous pen injector RxNorm: 0324809 INJECT 1 UNITS DOSE SUBCUTANEOUSLY ON TUESDAY OF EACH WEEK 2023 Active MED IS ON B/O omeprazole 40 mg capsule,delayed release RxNorm: 759855 Take 1 Capsule(s) Oral HS 023 2022 Inactive Januvia 50 mg tablet RxNorm: 462555 Take 1 Tablet(s) Oral two times a day 023 2023 Inactive famotidine 20 mg tablet RxNorm: 230772 TAKE 1 TABLET BY MOUTH EACH MORNING 023 2023 Active Januvia 25 mg tablet RxNorm: 009027 Take 1 Tablet(s) Oral every day 023 2022 Inactive Ozempic 1 mg/dose (4 mg/3 mL) subcutaneous pen injector RxNorm: 2675674 INJECT 1 UNITS DOSE SUBCUTANEOUSLY ON TUESDAY OF EACH WEEK 023 2022 Inactive cetirizine 10 mg tablet RxNorm: 1599853 TAKE (1) TABLET BY MOUTH DAILY 023 2023 Inactive amoxicillin 500 mg tablet RxNorm: 948526 Take 1 Tablet(s) Oral two times a day 023 2022 Inactive omeprazole 40 mg capsule,delayed release RxNorm: 104535 Take 1 Capsule(s) Oral at bed time 023 2022 Inactive Easy Touch Alcohol Prep Pads RxNorm: 107254 USE EACH MORNING 023 2024 Active montelukast 10 mg tablet RxNorm: 044238 Take 1 Tablet(s) Oral every day 023 2022 Inactive gabapentin 300 mg capsule RxNorm: 360572 Take 1 Capsule(s) Oral three times a day 023 2022 Inactive metformin ER 500 mg 24 hr tablet,extended release RxNorm: 5031913 Take 1 Tablet(s) Oral every day with the evening meal 023 2022 Inactive famotidine 20 mg tablet RxNorm: 526232 Take 1 Tablet(s) Oral every morning 023 2022 Inactive levothyroxine 50 mcg tablet RxNorm: 594385 Take 1 Tablet(s) Oral every day 023 2023 Active Msg From [facility]: Approval Requested hydrochlorothiazide 25 mg tablet RxNorm: 596467 Take 1 Tablet(s) Oral every day 023 2023 Active Msg From [facility]: Approval Requested atorvastatin 20 mg tablet RxNorm: 795901 Take 1 Tablet(s) Oral every night at bedtime 023 2023 Active Macrobid 100 mg capsule RxNorm: 517500 1 Capsule(s) Oral every 12 hours with food 023 2022 Inactive omeprazole 40 mg capsule,delayed release RxNorm: 871557 Take 1 Capsule(s) Oral every night at bedtime 023 2022 Inactive trazodone 50 mg tablet RxNorm: 919110 Administer 1 Tablet(s) Oral every night at bedtime 023 No Stop Date Active cholecalciferol (vitamin D3) 50 mcg (2,000 unit) tablet RxNorm: 423828 Take 1 Tablet(s) Oral every day 023 2023 Active Ozempic 1 mg/dose (4 mg/3 mL) subcutaneous pen injector RxNorm: 8179231 USE 1 UNIT DOSE SUBCUTANEOUSLY ON TUE OF EACH WEEK 023 2022 Inactive lisinopril 2.5 mg tablet RxNorm: 686956 Take 1 Tablet(s) Oral every day 023 2022 Inactive Msg From [facility]: Dr. Zapata Requested Ozempic 1 mg/dose (4 mg/3 mL) subcutaneous pen injector RxNorm: 7618440 USE 1 UNIT DOSE SUBCUTANEOUSLY ON TUE OF EACH WEEK 023 2022 Inactive omeprazole 40 mg capsule,delayed release RxNorm: 867378 Take 1 Capsule(s) Oral every night at bedtime 023 2022 Inactive gabapentin 300 mg capsule RxNorm: 879996 Take 1 Capsule(s) Oral three times a day 023 2022 Inactive montelukast 10 mg tablet RxNorm: 959812 Take 1 Tablet(s) Oral every day 023 2022 Inactive omeprazole 20 mg capsule,delayed release RxNorm: 428780 Take 1 Capsule(s) Oral every evening 022 2022 Inactive Alcohol Prep Pads RxNorm: 341559 USE EACH MORNING 022 2021 Inactive E11.42 clotrimazole 1 % topical cream RxNorm: 634761 Apply 1 Application Topical two times a day as needed apply to affected area(s) twice daily until healed 2021 Inactive Victoza 2-Sebastián 0.6 mg/0.1 mL (18 mg/3 mL) subcutaneous pen injector RxNorm: 851978 Inject 0.6-1.8 Milligram(s) Subcutaneous once a week Inject 0.6mg/0.1ml week one, 1.2mg/0.2ml week two, 1.8/0.3ml weekly thereafter 022 2021 Inactive ibuprofen 800 mg tablet RxNorm: 606205 Take 1 Tablet(s) Oral Q8H as needed for pain take with food No Stop Date Active Ozempic 1 mg/dose (4 mg/3 mL) subcutaneous pen injector RxNorm: 4367588 Take 1 Unit Dose Subcutaneous QWeek Tuesday2021 Inactive lisinopril 2.5 mg tablet RxNorm: 625071 Take 1 Tablet(s) Oral every day 2021 Inactive lisinopril 2.5 mg tablet RxNorm: 676687 Take 1 Tablet(s) Oral every day 2022 Inactive hydrochlorothiazide 25 mg tablet RxNorm: 583283 Take 1 Tablet(s) Oral every day 2021 Inactive Ozempic 1 mg/dose (4 mg/3 mL) subcutaneous pen injector RxNorm: 6541028 Take 1 Unit Dose Subcutaneous QWeek 2021 Inactive famotidine 20 mg tablet RxNorm: 486436 Take 1 Tablet(s) Oral every morning 2021 Inactive levothyroxine 50 mcg tablet RxNorm: 984457 Take 1 Tablet(s) Oral every day 2021 Inactive atorvastatin 20 mg tablet RxNorm: 521757 Take 1 Tablet(s) Oral every night at bedtime 2021 Inactive Cleocin T 1 % lotion RxNorm: 623119 Take 2 Gram(s) Topical every day 2021 Inactive Cleocin T 1 % lotion RxNorm: 907379 Take 2 Gram(s) Topical every day 022 2021 Inactive Ozempic 1 mg/dose (4 mg/3 mL) subcutaneous pen injector RxNorm: 0003794 Take 1 Unit Dose Subcutaneous QWeek 022 2021 Inactive Ozempic 0.25 mg or 0.5 mg (2 mg/1.5 mL) subcutaneous pen injector RxNorm: 6462250 INJECT 0.5 MGS SUBCUTANEOUSLY EVERY WEEK 2021 Inactive omeprazole 20 mg capsule,delayed release RxNorm: 599944 Take 1 Capsule(s) Oral every evening 022 2021 Inactive levothyroxine 50 mcg tablet RxNorm: 585865 Take 1 Tablet(s) Oral every day 022 2021 Inactive atorvastatin 20 mg tablet RxNorm: 169441 Take 1 Tablet(s) Oral every night at bedtime 2021 Inactive This refill negates all other refills of this medication lisinopril 2.5 mg tablet RxNorm: 352715 Take 1 Tablet(s) Oral every day 2021 Inactive gabapentin 300 mg capsule RxNorm: 070786 Take 1 Capsule(s) Oral three times a day 2021 Inactive montelukast 10 mg tablet RxNorm: 014408 Take 1 Tablet(s) Oral every day 2021 Inactive Myrbetriq 50 mg tablet,extended release RxNorm: 6556457 1 Tablet(s) Oral every day No Stop Date Active cholecalciferol (vitamin D3) 50 mcg (2,000 unit) tablet RxNorm: 543170 Take 1 Tablet(s) Oral every day 022 2022 Inactive Ozempic 0.25 mg or 0.5 mg (2 mg/1.5 mL) subcutaneous pen injector RxNorm: 9622830 inject 0.5 milligrams subcutaneously every week 2021 Inactive Ozempic 0.25 mg or 0.5 mg (2 mg/1.5 mL) subcutaneous pen injector RxNorm: 8015877 Take 0.5 Capsule(s) Injection once a week 022 2021 Inactive omeprazole 20 mg capsule,delayed release RxNorm: 148901 Take 1 Capsule(s) Oral every evening 1 Inactive Ozempic 0.25 mg or 0.5 mg (2 mg/1.5 mL) subcutaneous pen injector RxNorm: 2433447 Take 0.25 Milligram(s) Subcutaneous once a week 2021 Inactive Easy Touch Alcohol Prep Pads RxNorm: 978849 USE DIRECTED EACH MORNING 021 2021 Inactive Probiotic 10 billion cell capsule RxNorm: 9518216 Take 1 Capsule(s) Oral every day 2021 Inactive levothyroxine 50 mcg tablet RxNorm: 412910 Take 1 Tablet(s) Oral every day 2020 Inactive Acid Master Tax Advisor (famotidine) 20 mg tablet RxNorm: 932828 Take 1 Tablet(s) Oral every morning 2020 Inactive Heartburn Relief (famotidine) 10 mg tablet RxNorm: 284189 Take 1 Tablet(s) Oral QAM 2020 Inactive levothyroxine 50 mcg tablet RxNorm: 207010 Take 1 Tablet(s) Oral QD 2020 Inactive Singulair 10 mg tablet RxNorm: 447925 TAKE (1) TABLET BY MOUTH DAILY 2020 Inactive metformin 1,000 mg tablet RxNorm: 259745 1 Tablet(s) Oral two times a day 2021 Inactive lisinopril 2.5 mg tablet RxNorm: 895677 Take 1 Tablet(s) Oral every day 2020 Inactive hydrochlorothiazide 25 mg tablet RxNorm: 752418 Take 1 Tablet(s) Oral every day 021 2020 Inactive ondansetron 4 mg disintegrating tablet RxNorm: 734847 1 Tablet(s) Oral two times a day 021 2020 Inactive Sudafed 12 Hour 120 mg tablet,extended release RxNorm: 6581763 TAKE 1 TABLET BY MOUTH EVERY 12 HOURS NEEDED 2021 Inactive Heartburn Relief (famotidine) 10 mg tablet RxNorm: 671349 Take 1 Tablet(s) Oral every morning 021 2020 Inactive omeprazole 20 mg capsule,delayed release RxNorm: 166644 1 Capsule(s) Oral every evening 021 2020 Inactive sertraline 100 mg tablet RxNorm: 477950 2 Tablet(s) Oral every day 021 2020 Inactive levothyroxine 50 mcg tablet RxNorm: 799669 TAKE (1) TABLET BY MOUTH DAILY 021 2020 Inactive metformin 500 mg tablet RxNorm: 549398 1 Tablet(s) Oral two times a day take with 500mg to equal 1000mg 021 2020 Inactive gabapentin 300 mg capsule RxNorm: 061081 TAKE 1 CAPSULE BY MOUTH THREE TIMES A DAY 021 2020 Inactive lisinopril 2.5 mg tablet RxNorm: 916205 TAKE 1 TABLET BY MOUTH DAILY 021 2020 Inactive gabapentin 300 mg capsule RxNorm: 746393 TAKE 1 CAPSULE BY MOUTH THREE TIMES A DAY 021 2020 Inactive Singulair 10 mg tablet RxNorm: 901994 TAKE (1) TABLET BY MOUTH DAILY 021 2020 Inactive metformin 1,000 mg tablet RxNorm: 575102 1 Tablet(s) Oral two times a day 021 2020 Inactive atorvastatin 40 mg tablet RxNorm: 751903 1 Tablet(s) Oral every day 021 2020 Inactive omeprazole 20 mg capsule,delayed release RxNorm: 804715 1 Capsule(s) Oral every evening 021 2020 Inactive famotidine 10 mg tablet RxNorm: 873597 1 Tablet(s) Oral every morning 021 2020 Inactive Alcohol Prep Pads RxNorm: 344364 USE EACH MORNING 021 2020 Inactive omeprazole 20 mg capsule,delayed release RxNorm: 186621 1 Capsule(s) Oral two times a day 2021 Inactive omeprazole 20 mg capsule,delayed release RxNorm: 547770 TAKE 1 CAPSULE BY MOUTH EVERY DAY 2021 Inactive Macrobid 100 mg capsule RxNorm: 697261 1 Capsule(s) Oral every 12 hours with food 2020 Inactive omeprazole 20 mg capsule,delayed release RxNorm: 525624 1 Capsule(s) Oral two times a day 2021 Inactive metformin 1,000 mg tablet RxNorm: 829638 1 Tablet(s) Oral two times a day 2020 Inactive start on September 11, 2020 metformin 500 mg tablet RxNorm: 404164 1 Tablet(s) Oral two times a day take with 500mg to equal 1000mg 2019 Inactive gabapentin 300 mg capsule RxNorm: 075647 TAKE 1 CAPSULE BY MOUTH THREE TIMES DAILY 2020 Inactive cetirizine 10 mg tablet RxNorm: 0747434 TAKE (1) TABLET BY MOUTH DAILY 2020 Inactive metformin 500 mg tablet RxNorm: 496888 1 Tablet(s) Oral two times a day 2019 Inactive loperamide 2 mg tablet RxNorm: 360236 1 Tablet(s) Oral as needed take one tablet after each loose stool, maximum of 8 tablets in 24 hours 2021 Inactive Sudafed 12 Hour 120 mg tablet,extended release RxNorm: 4203704 TAKE 1 TABLET BY MOUTH EVERY 12 HOURS NEEDED 2019 Inactive hydrochlorothiazide 25 mg tablet RxNorm: 549351 TAKE (1) TABLET BY MOUTH EVERY DAY 2019 Inactive omeprazole 20 mg capsule,delayed release RxNorm: 887208 TAKE 1 CAPSULE BY MOUTH EVERY DAY 2020 Inactive metformin 500 mg tablet RxNorm: 517447 1 Tablet(s) Oral every day 2019 Inactive True Metrix Glucose Test Strip RxNorm: 1 Test Strips Miscellaneous two times a day as needed No Stop Date Active metformin 500 mg tablet RxNorm: 486081 1 Tablet(s) Oral every day 020 2019 Inactive diclofenac sodium 75 mg tablet,delayed release RxNorm: 592952 1 Tablet(s) PO BID 2021 Inactive This refill negates all other refills of this medication Sudafed 12 Hour 120 mg tablet,extended release RxNorm: 0880086 TAKE 1 TABLET BY MOUTH EVERY 12 HOURS NEEDED 020 2019 Inactive True Metrix Glucose Test Strip RxNorm: 1 Test Strips Miscellaneous every morning 020 2019 Inactive 100/container True Metrix Glucose Test Strip RxNorm: 1 Test Strips Miscellaneous QAM 020 2019 Inactive 100/container loperamide 2 mg tablet RxNorm: 664729 1 Tablet(s) Oral as needed take one tablet after each loose stool, maximum of 8 tablets in 24 hours 020 2019 Inactive cetirizine 10 mg tablet RxNorm: 2025347 1 Tablet(s) PO daily 2019 Inactive loperamide 2 mg tablet RxNorm: 843979 1 Tablet(s) Oral as needed take one tablet after each loose stool, maximum of 8 tablets in 24 hours 020 2019 Inactive quetiapine 100 mg tablet RxNorm: 791992 1 Tablet(s) Oral every night at bedtime 2019 Inactive levothyroxine 50 mcg tablet RxNorm: 234395 1 Tablet(s) PO daily 020 2020 Inactive gabapentin 300 mg capsule RxNorm: 826414 1 Capsule(s) PO TID 2019 Inactive levothyroxine 50 mcg tablet RxNorm: 552798 1 Tablet(s) PO daily 020 2019 Inactive lisinopril 2.5 mg tablet RxNorm: 853151 1 Tablet(s) PO daily 2020 Inactive gabapentin 300 mg capsule RxNorm: 876935 1 Capsule(s) PO TID 2019 Inactive cetirizine 10 mg tablet RxNorm: 0957190 1 Tablet(s) PO daily 2019 Inactive Singulair 10 mg tablet RxNorm: 680472 1 Tablet(s) PO daily 2020 Inactive gentamicin 0.3 % eye drops RxNorm: 037108 1 Drop(s) ophthalmic (eye) four times a day 2019 Inactive gentamicin 0.3 % eye drops RxNorm: 706878 1 Drop(s) ophthalmic (eye) four times a day 2019 Inactive gentamicin 0.3 % eye drops RxNorm: 122565 1 Drop(s) ophthalmic (eye) four times a day 2019 Inactive hydrochlorothiazide 25 mg tablet RxNorm: 583113 1 Tablet(s) Oral every day 2019 Inactive Sudafed 12 Hour 120 mg tablet,extended release RxNorm: 8639857 TAKE (1) TABLET BY MOUTH EVERY 12 HOURS NEEDED 2019 Inactive loperamide 2 mg tablet RxNorm: 716934 1 Tablet(s) Oral as needed take one tablet after each loose stool, maximum of 8 tablets in 24 hours 020 2019 Inactive loperamide 2 mg tablet RxNorm: 582496 1 Tablet(s) Oral as needed take one tablet after each loose stool, maximum of 8 tablets in 24 hours 020 2019 Inactive atorvastatin 40 mg tablet RxNorm: 065996 1 Tablet(s) Oral every day 2020 Inactive quetiapine 100 mg tablet RxNorm: 570025 1 Tablet(s) Oral every night at bedtime 2019 Inactive sertraline 100 mg tablet RxNorm: 855834 1 Tablet(s) Oral 2019 Inactive omeprazole 20 mg capsule,delayed release RxNorm: 192039 1 Capsule(s) Oral every day 020 2019 Inactive amoxicillin 250 mg capsule RxNorm: 764039 1 Capsule(s) Oral three times a day 020 2019 Inactive multivitamin with iron-mineral tablet RxNorm: 1 Tablet(s) Oral every day 020 2021 Inactive cetirizine 10 mg tablet RxNorm: 2643733 1 Tablet(s) PO daily 2019 Inactive This refill negates all other refills of this medication. Please do not auto refill Singulair 10 mg tablet RxNorm: 376386 1 Tablet(s) PO daily 2019 Inactive This refill negates all other refills of this medication gabapentin 300 mg capsule RxNorm: 436109 1 Capsule(s) PO TID 2019 Inactive lisinopril 2.5 mg tablet RxNorm: 740671 1 Tablet(s) PO daily 2019 Inactive levothyroxine 50 mcg tablet RxNorm: 279515 1 Tablet(s) PO daily 2019 Inactive This refill negates all other refills of this medication hydrochlorothiazide 25 mg tablet RxNorm: 756503 1 Tablet(s) Oral every day 2019 Inactive fenugreek seed extract 500 mg capsule RxNorm: 1 Capsule(s) Oral three times a day 020 2021 Inactive Alcohol Prep Pads RxNorm: 007608 1 Patch TOP QAM 020 2020 Inactive loperamide 2 mg tablet RxNorm: 433342 1 Tablet(s) Oral as needed take one [...] 2019 Inactive hydrochlorothiazide 25 mg tablet RxNorm: 385771 1 Tablet(s) Oral every day 2019 Inactive Sudafed 12 Hour 120 mg tablet,extended release RxNorm: 2627470 1 Tablet(s) Oral every 12 hours as needed 2018 Inactive omeprazole 20 mg capsule,delayed release RxNorm: 646433 1 Capsule(s) Oral every day 019 2019 Inactive Sudafed 12 Hour 120 mg tablet,extended release RxNorm: 2999694 1 Tablet(s) Oral every 12 hours as needed 2018 Inactive pantoprazole 40 mg tablet,delayed release RxNorm: 767888 1 Tablet(s) Oral every day 2018 Inactive discontinue any other H2Blkr. and PPI albuterol sulfate 2.5 mg/3 mL (0.083 %) solution for nebulization RxNorm: 116930 1 Vial Inhalation every four hours as needed as needed for dyspnea 2019 Inactive 60/box. This refill negates all other refills of this medication. Please do not fill early. Please do not auto refill. Symbicort 160 mcg-4.5 mcg/actuation HFA aerosol inhaler RxNorm: 9146709 2 Puff(s) INH BID No Stop Date Active Alcohol Prep Pads RxNorm: 817898 1 Patch TOP QAM 2019 Inactive Ventolin HFA 90 mcg/actuation aerosol inhaler RxNorm: 222129 2 Puff(s) INH QID 019 2019 Inactive Please do not fill early. Please do not auto refill. This refill negates all other refills of this medication True Metrix Glucose Test Strip RxNorm: 1 Test Strips Miscellaneous QAM 019 2019 Inactive 100/container atorvastatin 40 mg tablet RxNorm: 892107 1 Tablet(s) Oral every day 019 2019 Inactive buspirone 7.5 mg tablet RxNorm: 984205 1 Tablet(s) PO BID 019 2020 Inactive This refill negates all other refills of this medication hydrochlorothiazide 12.5 mg tablet RxNorm: 476600 1 Tablet(s) PO QAM 019 2019 Inactive levmetamfetamine 50 mg nasal inhaler RxNorm: 1 Unit(s) NASAL Q3-4H Do not use more than every 3 hours or 8 times/24hours 019 2021 Inactive Please do not auto refill. This refill negates all other refills of this medication Ventolin HFA 90 mcg/actuation aerosol inhaler RxNorm: 139211 2 Puff(s) INH QID 2018 Inactive Please do not fill early. Please do not auto refill. This refill negates all other refills of this medication Singulair 10 mg tablet RxNorm: 999894 1 Tablet(s) PO daily 019 2019 Inactive This refill negates all other refills of this medication cetirizine 10 mg tablet RxNorm: 2251437 1 Tablet(s) PO daily 019 2019 Inactive This refill negates all other refills of this medication. Please do not auto refill levothyroxine 50 mcg tablet RxNorm: 315448 1 Tablet(s) PO daily 019 2019 Inactive This refill negates all other refills of this medication diclofenac sodium 75 mg tablet,delayed release RxNorm: 925139 1 Tablet(s) PO BID 019 2019 Inactive This refill negates all other refills of this medication ranitidine 150 mg tablet RxNorm: 808548 1 Tablet(s) PO BID 019 2018 Inactive This refill negates all other refills of this medication Calcium 600-D3 Plus (mag-zinc) 600 mg calcium-800 unit-50 mg tablet RxNorm: 1 Tablet(s) PO daily take an additonal tablet for itching. 019 2018 Inactive This refill negates all other refills of this medication albuterol sulfate 2.5 mg/3 mL (0.083 %) solution for nebulization RxNorm: 564239 1 Vial INH QID 2018 Inactive 60/box. This refill negates all other refills of this medication. Please do not fill early. Please do not auto refill. lisinopril 2.5 mg tablet RxNorm: 568623 1 Tablet(s) PO daily 019 2019 Inactive gabapentin 300 mg capsule RxNorm: 129015 1 Capsule(s) PO TID 019 2019 Inactive atorvastatin 20 mg tablet RxNorm: 121731 1 Tablet(s) PO QHS 2018 Inactive This refill negates all other refills of this medication TRUEplus Lancets 30 gauge RxNorm: 1 Lancets Miscellaneous QAM 019 2018 Inactive 100/box gabapentin 300 mg capsule RxNorm: 260276 1 Capsule(s) PO TID 019 2018 Inactive Flintstones Complete (iron) 18 mg iron chewable tablet RxNorm: 1 Tablet(s) PO daily 019 2021 Inactive This refill negates all other refills of this medication gabapentin 300 mg capsule RxNorm: 159894 1 Capsule(s) PO TID as needed 019 2018 Inactive True Metrix Glucose Test Strip RxNorm: 1 Test Strips Miscellaneous QAM 019 2018 Inactive 100/container Alcohol Prep Pads RxNorm: 066954 1 Patch TOP QAM 019 2018 Inactive TRUEplus Lancets 30 gauge RxNorm: 1 Lancets Miscellaneous QAM 019 2018 Inactive 100/box lisinopril 2.5 mg tablet RxNorm: 715724 1 Tablet(s) PO daily 019 2018 Inactive ranitidine 150 mg tablet RxNorm: 413702 1 Tablet(s) PO BID 019 2018 Inactive This refill negates all other refills of this medication albuterol sulfate 2.5 mg/3 mL (0.083 %) solution for nebulization RxNorm: 241507 1 Vial INH QID 019 2018 Inactive [...] this medication gabapentin 300 mg capsule RxNorm: 397932 1 Capsule(s) PO TID as needed 019 2018 Inactive atorvastatin 20 mg tablet RxNorm: 410413 1 Tablet(s) PO QHS 019 2018 Inactive This refill negates all other refills of this medication trazodone 50 mg tablet RxNorm: 657005 1 Tablet(s) PO QHS 019 2018 Inactive This refill negates all other refills of this medication Ventolin HFA 90 mcg/actuation aerosol inhaler RxNorm: 739794 2 Puff(s) INH QID 019 2018 Inactive Please do not fill early. Please do not auto refill. This refill negates all other refills of this medication Calcium 600-D3 Plus 600 mg calcium-800 unit-50 mg tablet RxNorm: 1 Tablet(s) PO daily take an additonal tablet for itching. 019 2018 Inactive This refill negates all other refills of this medication Singulair 10 mg tablet RxNorm: 031831 1 Tablet(s) PO daily 019 2018 Inactive This refill negates all other refills of this medication buspirone 7.5 mg tablet RxNorm: 532828 1 Tablet(s) PO BID 019 2018 Inactive This refill negates all other refills of this medication diclofenac sodium 75 mg tablet,delayed release RxNorm: 937171 1 Tablet(s) PO BID 019 2018 Inactive This refill negates all other refills of this medication hydrochlorothiazide 12.5 mg tablet RxNorm: 650114 1 Tablet(s) PO QAM 019 2018 Inactive metoprolol succinate ER 50 mg tablet,extended release 24 hr RxNorm: 129705 1 Tablet(s) PO daily 019 2018 Inactive This refill negates all other refills of this medication levothyroxine 50 mcg tablet RxNorm: 626636 1 Tablet(s) PO daily 019 2018 Inactive This refill negates all other refills of this medication cetirizine 10 mg tablet RxNorm: 3950387 1 Tablet(s) PO daily 019 2018 Inactive This refill negates all other refills of this medication. Please do not auto refill Flintstones Complete (iron) 18 mg iron chewable tablet RxNorm: 1 Tablet(s) PO daily 019 2018 Inactive This refill negates all other refills of this medication buspirone 7.5 mg tablet RxNorm: 250234 1 Tablet(s) PO BID 019 2018 Inactive cetirizine 10 mg tablet RxNorm: 3495812 1 Tablet(s) PO daily 2018 Inactive Guaiasorb DM 10 mg-100 mg/5 mL oral liquid RxNorm: 116505 10 Milliliter(s) PO As needed every 4 hr 2018 Inactive Vicks Vaporub 4.7 %-1.2 %-2.6 % topical ointment RxNorm: 6224154 1 Application TOP TID 018 2018 Inactive levmetamfetamine 50 mg nasal inhaler RxNorm: 1 Unit(s) NASAL Q3-4H 018 2017 Inactive sertraline 50 mg tablet RxNorm: 271448 1 Tablet(s) PO daily 018 2018 Inactive Please note dose trazodone 50 mg tablet RxNorm: 079472 1 Tablet(s) PO QHS 018 2018 Inactive sertraline 50 mg tablet RxNorm: 308257 1 Tablet(s) PO daily 018 2017 Inactive amoxicillin 500 mg tablet RxNorm: 042743 1 Tablet(s) PO Q12H 018 2017 Inactive albuterol sulfate 2.5 mg/3 mL (0.083 %) solution for nebulization RxNorm: 514300 1 Vial INH QID 018 2018 Inactive 60/box. Please do not fill early. Please do not auto refill. Prozac 10 mg capsule RxNorm: 074241 1 Capsule(s) PO daily 018 2017 Inactive buspirone 7.5 mg tablet RxNorm: 416676 1 Tablet(s) PO BID 018 2018 Inactive gabapentin 300 mg capsule RxNorm: 966472 1 Capsule(s) PO TID as needed 2018 Inactive hydrochlorothiazide 12.5 mg tablet RxNorm: 246460 1 Tablet(s) PO QAM 2018 Inactive ranitidine 150 mg tablet RxNorm: 806538 1 Tablet(s) PO BID 018 2018 Inactive Macrobid 100 mg capsule RxNorm: 753097 1 Capsule(s) PO Q12H 018 2017 Inactive Singulair 10 mg tablet RxNorm: 929135 1 Tablet(s) PO daily 018 2018 Inactive Ventolin HFA 90 mcg/actuation aerosol inhaler RxNorm: 4269916 2 Puff(s) INH QID 018 2018 Inactive Singulair 10 mg tablet RxNorm: 599376 1 Tablet(s) PO daily 018 2017 Inactive buspirone 7.5 mg tablet RxNorm: 022270 1 Tablet(s) PO BID 018 2017 Inactive Prozac 10 mg capsule RxNorm: 484201 1 Capsule(s) PO daily 018 2017 Inactive diclofenac sodium 75 mg tablet,delayed release RxNorm: 288433 1 Tablet(s) PO BID 018 2017 Inactive lisinopril 2.5 mg tablet RxNorm: 723875 1 Tablet(s) PO daily 018 2017 Inactive Neilmed Pediatric Sinus Rinse Refill packet RxNorm: 1 Unit Dose NASAL PRN 018 2021 Inactive metoprolol succinate ER 50 mg tablet,extended release 24 hr RxNorm: 630699 1 Tablet(s) PO daily 018 2017 Inactive levothyroxine 50 mcg tablet RxNorm: 934987 1 Tablet(s) PO daily 018 2017 Inactive TRUEplus Lancets 30 gauge RxNorm: 1 Lancets Miscellaneous QAM 018 2017 Inactive 100/box Ventolin HFA 90 mcg/actuation aerosol inhaler RxNorm: 885677 2 Puff(s) INH QID 018 2017 Inactive Aleve 220 mg capsule RxNorm: 8365652 1 Capsule(s) PO BID 018 2018 Inactive ranitidine 150 mg tablet RxNorm: 755675 1 Tablet(s) PO BID 018 2017 Inactive gabapentin 300 mg capsule RxNorm: 903712 1 Capsule(s) PO TID as needed 018 2017 Inactive atorvastatin 20 mg tablet RxNorm: 876965 1 Tablet(s) PO QHS 018 2017 Inactive True Metrix Glucose Test Strip RxNorm: 1 Test Strips Miscellaneous QAM 018 2017 Inactive 50/container Calcium 600-D3 Plus 600 mg calcium-800 unit-50 mg tablet RxNorm: 1 Tablet(s) PO daily take an additonal tablet for itching. 018 2017 Inactive hydrochlorothiazide 12.5 mg tablet RxNorm: 656774 1 Tablet(s) PO QAM 018 2017 Inactive Flintstones Complete (iron) 18 mg iron chewable tablet RxNorm: 1 Tablet(s) PO daily 018 2017 Inactive True Metrix Glucose Meter RxNorm: miscellaneous 019 2018 Inactive sertraline 50 mg tablet RxNorm: 672489 1 Tablet(s) PO daily 020 2019 Inactive loperamide 2 mg tablet RxNorm: 182228 oral 019 2018 Inactive d-mannose oral powder RxNorm: PO 018 2021 Inactive Symbicort 160 mcg-4.5 mcg/actuation HFA aerosol inhaler RxNorm: 8794905 2 Puff(s) INH BID 2018 Inactive Medication Administered No Medication Administered data Procedures Procedure Codes Date Patient Health Questionnaire CPT-4: DPHQ Electrocardiogram CPT-4: 80071 06/24/2023 Urinalysis, dip stick CPT-4: 64823 05/04/2023 [place] Assessment CPT-4: DSWA 01/02 Fall Risk Assessment CPT-4: DFRA 01/27/2023 Hypertension CPT-4: HTN 01/27/2023 Patient Health Questionnaire CPT-4: DPHQ Pain Screening CPT-4: PAS 2022 Tobacco Assessment/Screening CPT-4: TCA Hypertension CPT-4: HTN 08/17/2022 [place] Assessment CPT-4: DSWA 04/02 Patient Health [...] CPT-4: VACP Fall Risk Assessment SNOMED CT: 05657340 4 CPT-4: DFRA01/13/2021[place] Fany AssessmentCPT-4: DSWA12/17/2020Urinalysis, dip stickCPT-4: 017546909/24/2020Patient Health QuestionnaireCPT-4: DPHQ 08/19/2020ElectrocardiogramCPT-4: 372906405/14/2020Tobacco Assessment/Screening CPT-4: TCA01/01/2020Fall Risk AssessmentSNOMED CT: 876787122 CPT-4: DFRA01/01/2020Functional AssessmentCPT-4: DFA01/01/2020[place] Fany AssessmentCPT-4: DSWA11/28/2019Patient Health QuestionnaireCPT-4: DPHQ11/28/2019 [place] AssessmentCPT-4: DSWA10/17/2019HypertensionCPT-4: HTN10/17/[address]: 652968275 CPT-4: DFRA09/19/2019Functional AssessmentCPT-4: DFA111/20/2018Urinalysis, dip stickCPT-4: 480324106/21/2019Tobacco Assessment/ScreeningCPT-4: TCA05/24/2019 Patient Health QuestionnaireCPT-4: DPHQ05/24/2019AHA/REBECCA Classification AssessmentCPT-4: DAHA04/25/2019Controlled Substance ReportCPT-4: CTRSU04/25/2019 Urinalysis, dip stickCPT-4: 650147303/28/2019Urinalysis, dip stickCPT-4: 04567 03/28/20193244U3Z-TkoxsaiuyqgggpoZYO-3: 20024LndvhapY6T-MaogcuazxjcwsijRVA-7: 66524 LlotrmwA2D-IiqlrtxjlyczkcmYRN-0: 19321WviypxrU0J-SbmswlhmgumzkrlENU-2: 36535 JapwlxrZ8R-VizhfpbosyrsvmmHUG-1: 14152IkhpzopR0J-AlekfbicfhhbsozQKT-7: 66965 XjklgdgL3W-WkjnencuohldqnpEHH-6: 74456JpowixgY7X-QwstwrannqmuppcBBX-0: 94437 JsizrsrX4E-WzagpwtrcvnyasyIEF-3: 66120BwvvqpiL8P-UzvksqqaihouucgBBU-0: 79160 KsmitckZ1H-TwhlxazcobcgopuRBC-3: 41151BkshbowZ6W-TyofxzytuhbszdeVVX-4: [address]: 063731367 CPT-4: H59DkohnztH7M-ZeoxpdioynkgyjyDZB-2: 78141Uchdnse Reason For Visit No Reason For Visit data Plan of Care Planned Activity Notes Codes Status Date Referral: Pending Gynecology Referral Informatio n Referral ProcessedReferral: Pending Pulmonology Referral InformationReferralProcessed Referral: Pending Psychiatry Referral InformationReferralInitiatedReferral: Pending Respiratory Services Referral InformationReferralInitiatedReferral: Pending Ophthalmology Referral InformationReferralInitiatedReferral: [facility] WPtel: [address] [place] [address] [id number] USWriter placed a call out to the patient to notify her that it has been recommended that she be seenby a urologist. Patient agreed to be seen, does not have a provider of choice and no transportationissues. Discharge Specialist faxed referral and clinical notes to [facility] in [place], [place] near the patient's home. Patient to [...] seen and prefers a provider in the [place] or [place] area. Discharge Specialist placed a call out to everyone listed in the area and the only location that was able to accept the patient's insurance was [facility] [address] [place] [address] and spoke with Maylin. Maylin asked that the patient's referral, face sheet and visit notes be faxed to . Discharge Specialist faxed over requested documents. Patient appointment confirmation letter generated and mailed to her home address. Patient to call to schedule an appointment.ProcessedReferral: [facility] WPtel: [address] [place] [id number] USPatient notified that it has been advised that she be seen by Neurology. Patient agreed to be seen and prefers to be seen by a provider in the [place], [place] area. Patient denies any concerns with transportation, and prefers to schedule her own appointment. Discharge Specialist placed a call out to [place] [...]
--- OUTSIDE RECORDS SUMMARY | 2024-01-03 23:28 | XMS_ITS | CCD ---
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 Nanofabrication Specialist Name Role Phone aPlomo KING, Anna Primary Care Provider Unav ailable Unavailable Chronic Care Management Unavaila ble Summary Purpose DataExchange Insurance Providers Payer name Policy type / Coverage type Covered democrat ID Effective Begin Date Effective End Date [employer] [facility] [id number] Unknown Unknown Family history Mother Diagnosis Age [...] 05/31/2018 Education level Unknown Some High School 10th05/31/20181523DuwowrolqwEnrrcvjPjdtmvqriq09/29/2018Tobacco historySNOMED CT: [id number] never smoked or chewed ghhudee2805/31/2018Alcohol historySNOMED CT: [id number] drinks [id number]/31/2018Has the patient ever used illegal drugs? UnknownHas never used illegal drugs05/31/2018DNR Order/ Advanced Directive UnknownFull Code05/31/2018 Allergies, Adverse Reactions, Alerts Substance Reaction Codes Entered Date Inactivated Date Status OxyContin itch, RxNorm: 140583 01/13/2021 No Inactive Da te Active *No known food allergies Wlzuoik6609/06/2018No Inactive DateActiveMethylprednisolonehivesRxNorm: 6902 09/06/2018No Inactive DateActive Problems [...] Z01.810 ICD-9: V72.8106/InactiveHeadacheICD-10: R51 ICD-9: 784.001/10/2018InactiveOther terminal block assembler (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ICD-10: Z79.899 ICD-9: V58.6907/InactiveType 2 [...] (4 mg/3 mL) subcutaneous pen injector RxNorm: 7030977 INJECT 1 UNITS DOSE SUBCUTANEOUSLY ON TUESDAY OF EACH WEEK 2023 Active MED IS ON B/O omeprazole 40 mg capsule,delayed release RxNorm: 178688 Take 1 Capsule(s) Oral HS 023 2022 Inactive Januvia 50 mg tablet RxNorm: 755033 Take 1 Tablet(s) Oral two times a day 023 2023 Inactive famotidine 20 mg tablet RxNorm: 752535 TAKE 1 TABLET BY MOUTH EACH MORNING 023 2023 Active Januvia 25 mg tablet RxNorm: 509171 Take 1 Tablet(s) Oral every day 023 2022 Inactive Ozempic 1 mg/dose (4 mg/3 mL) subcutaneous pen injector RxNorm: 7649741 INJECT 1 UNITS DOSE SUBCUTANEOUSLY ON TUESDAY OF EACH WEEK 023 2022 Inactive cetirizine 10 mg tablet RxNorm: 0770376 TAKE (1) TABLET BY MOUTH DAILY 023 2023 Inactive amoxicillin 500 mg tablet RxNorm: 081403 Take 1 Tablet(s) Oral two times a day 023 2022 Inactive omeprazole 40 mg capsule,delayed release RxNorm: 560584 Take 1 Capsule(s) Oral at bed time 023 2022 Inactive Easy Touch Alcohol Prep Pads RxNorm: 546787 USE EACH MORNING 023 2024 Active montelukast 10 mg tablet RxNorm: 544774 Take 1 Tablet(s) Oral every day 023 2022 Inactive gabapentin 300 mg capsule RxNorm: 368723 Take 1 Capsule(s) Oral three times a day 023 2022 Inactive metformin ER 500 mg 24 hr tablet,extended release RxNorm: 8394612 Take 1 Tablet(s) Oral every day with the evening meal 023 2022 Inactive famotidine 20 mg tablet RxNorm: 149091 Take 1 Tablet(s) Oral every morning 023 2022 Inactive levothyroxine 50 mcg tablet RxNorm: 097126 Take 1 Tablet(s) Oral every day 023 2023 Active Msg From [facility]: Approval Requested hydrochlorothiazide 25 mg tablet RxNorm: 369390 Take 1 Tablet(s) Oral every day 023 2023 Active Msg From [facility]: Approval Requested atorvastatin 20 mg tablet RxNorm: 333748 Take 1 Tablet(s) Oral every night at bedtime 023 2023 Active Macrobid 100 mg capsule RxNorm: 860630 1 Capsule(s) Oral every 12 hours with food 023 2022 Inactive omeprazole 40 mg capsule,delayed release RxNorm: 105486 Take 1 Capsule(s) Oral every night at bedtime 023 2022 Inactive trazodone 50 mg tablet RxNorm: 532142 Administer 1 Tablet(s) Oral every night at bedtime 023 No Stop Date Active cholecalciferol (vitamin D3) 50 mcg (2,000 unit) tablet RxNorm: 494267 Take 1 Tablet(s) Oral every day 023 2023 Active Ozempic 1 mg/dose (4 mg/3 mL) subcutaneous pen injector RxNorm: 0548828 USE 1 UNIT DOSE SUBCUTANEOUSLY ON TUE OF EACH WEEK 023 2022 Inactive lisinopril 2.5 mg tablet RxNorm: 874014 Take 1 Tablet(s) Oral every day 023 2022 Inactive Msg From [facility]: Dr. Zapata Requested Ozempic 1 mg/dose (4 mg/3 mL) subcutaneous pen injector RxNorm: 6125826 USE 1 UNIT DOSE SUBCUTANEOUSLY ON TUE OF EACH WEEK 023 2022 Inactive omeprazole 40 mg capsule,delayed release RxNorm: 544981 Take 1 Capsule(s) Oral every night at bedtime 023 2022 Inactive gabapentin 300 mg capsule RxNorm: 671853 Take 1 Capsule(s) Oral three times a day 023 2022 Inactive montelukast 10 mg tablet RxNorm: 833158 Take 1 Tablet(s) Oral every day 023 2022 Inactive omeprazole 20 mg capsule,delayed release RxNorm: 343906 Take 1 Capsule(s) Oral every evening 022 2022 Inactive Alcohol Prep Pads RxNorm: 977672 USE EACH MORNING 022 2021 Inactive E11.42 clotrimazole 1 % topical cream RxNorm: 317264 Apply 1 Application Topical two times a day as needed apply to affected area(s) twice daily until healed 2021 Inactive Victoza 2-Sebastián 0.6 mg/0.1 mL (18 mg/3 mL) subcutaneous pen injector RxNorm: 735561 Inject 0.6-1.8 Milligram(s) Subcutaneous once a week Inject 0.6mg/0.1ml week one, 1.2mg/0.2ml week two, 1.8/0.3ml weekly thereafter 022 2021 Inactive ibuprofen 800 mg tablet RxNorm: 961937 Take 1 Tablet(s) Oral Q8H as needed for pain take with food No Stop Date Active Ozempic 1 mg/dose (4 mg/3 mL) subcutaneous pen injector RxNorm: 3257038 Take 1 Unit Dose Subcutaneous QWeek Tuesday 022 2021 Inactive lisinopril 2.5 mg tablet RxNorm: 454068 Take 1 Tablet(s) Oral every day 022 2021 Inactive lisinopril 2.5 mg tablet RxNorm: 266321 Take 1 Tablet(s) Oral every day 022 2022 Inactive hydrochlorothiazide 25 mg tablet RxNorm: 332786 Take 1 Tablet(s) Oral every day 022 2021 Inactive Ozempic 1 mg/dose (4 mg/3 mL) subcutaneous pen injector RxNorm: 9280161 Take 1 Unit Dose Subcutaneous QWeek 2021 Inactive famotidine 20 mg tablet RxNorm: 242855 Take 1 Tablet(s) Oral every morning 2021 Inactive levothyroxine 50 mcg tablet RxNorm: 707945 Take 1 Tablet(s) Oral every day 2021 Inactive atorvastatin 20 mg tablet RxNorm: 708775 Take 1 Tablet(s) Oral every night at bedtime 2021 Inactive Cleocin T 1 % lotion RxNorm: 085365 Take 2 Gram(s) Topical every day 022 2021 Inactive Cleocin T 1 % lotion RxNorm: 991491 Take 2 Gram(s) Topical every day 2021 Inactive Ozempic 1 mg/dose (4 mg/3 mL) subcutaneous pen injector RxNorm: 4022464 Take 1 Unit Dose Subcutaneous QWeek 2021 Inactive Ozempic 0.25 mg or 0.5 mg (2 mg/1.5 mL) subcutaneous pen injector RxNorm: 7850236 INJECT 0.5 MGS SUBCUTANEOUSLY EVERY WEEK 2021 Inactive omeprazole 20 mg capsule,delayed release RxNorm: 283147 Take 1 Capsule(s) Oral every evening 2021 Inactive levothyroxine 50 mcg tablet RxNorm: 163840 Take 1 Tablet(s) Oral every day 2021 Inactive atorvastatin 20 mg tablet RxNorm: 113490 Take 1 Tablet(s) Oral every night at bedtime 2021 Inactive This refill negates all other refills of this medication lisinopril 2.5 mg tablet RxNorm: 082608 Take 1 Tablet(s) Oral every day 022 2021 Inactive gabapentin 300 mg capsule RxNorm: 411750 Take 1 Capsule(s) Oral three times a day 2021 Inactive montelukast 10 mg tablet RxNorm: 061633 Take 1 Tablet(s) Oral every day 022 2021 Inactive Myrbetriq 50 mg tablet,extended release RxNorm: 4803166 1 Tablet(s) Oral every day No Stop Date Active cholecalciferol (vitamin D3) 50 mcg (2,000 unit) tablet RxNorm: 161143 Take 1 Tablet(s) Oral every day 2022 Inactive Ozempic 0.25 mg or 0.5 mg (2 mg/1.5 mL) subcutaneous pen injector RxNorm: 2671707 inject 0.5 milligrams subcutaneously every week 2021 Inactive Ozempic 0.25 mg or 0.5 mg (2 mg/1.5 mL) subcutaneous pen injector RxNorm: 7154261 Take 0.5 Capsule(s) Injection once a week 022 2021 Inactive omeprazole 20 mg capsule,delayed release RxNorm: 462833 Take 1 Capsule(s) Oral every evening 2020 Inactive Ozempic 0.25 mg or 0.5 mg (2 mg/1.5 mL) subcutaneous pen injector RxNorm: 1780044 Take 0.25 Milligram(s) Subcutaneous once a week 021 2021 Inactive Easy Touch Alcohol Prep Pads RxNorm: 624740 USE DIRECTED EACH MORNING 021 2021 Inactive Probiotic 10 billion cell capsule RxNorm: 1565728 Take 1 Capsule(s) Oral every day 021 2021 Inactive levothyroxine 50 mcg tablet RxNorm: 943552 Take 1 Tablet(s) Oral every day 021 2020 Inactive Acid Regional Guide (famotidine) 20 mg tablet RxNorm: 465597 Take 1 Tablet(s) Oral every morning 021 2020 Inactive Heartburn Relief (famotidine) 10 mg tablet RxNorm: 685554 Take 1 Tablet(s) Oral QAM 2020 Inactive levothyroxine 50 mcg tablet RxNorm: 274920 Take 1 Tablet(s) Oral QD 021 2020 Inactive Singulair 10 mg tablet RxNorm: 358542 TAKE (1) TABLET BY MOUTH DAILY 2020 Inactive metformin 1,000 mg tablet RxNorm: 793402 1 Tablet(s) Oral two times a day 2021 Inactive lisinopril 2.5 mg tablet RxNorm: 407601 Take 1 Tablet(s) Oral every day 021 2020 Inactive hydrochlorothiazide 25 mg tablet RxNorm: 983354 Take 1 Tablet(s) Oral every day 021 2020 Inactive ondansetron 4 mg disintegrating tablet RxNorm: 604550 1 Tablet(s) Oral two times a day 021 2020 Inactive Sudafed 12 Hour 120 mg tablet,extended release RxNorm: 6449962 TAKE 1 TABLET BY MOUTH EVERY 12 HOURS NEEDED 2021 Inactive Heartburn Relief (famotidine) 10 mg tablet RxNorm: 355595 Take 1 Tablet(s) Oral every morning 021 2020 Inactive omeprazole 20 mg capsule,delayed release RxNorm: 427773 1 Capsule(s) Oral every evening 021 2020 Inactive sertraline 100 mg tablet RxNorm: 460970 2 Tablet(s) Oral every day 021 2020 Inactive levothyroxine 50 mcg tablet RxNorm: 822891 TAKE (1) TABLET BY MOUTH DAILY 052020 Inactive metformin 500 mg tablet RxNorm: 785414 1 Tablet(s) Oral two times a day take with 500mg to equal 1000mg 2020 Inactive gabapentin 300 mg capsule RxNorm: 522198 TAKE 1 CAPSULE BY MOUTH THREE TIMES A DAY 021 2020 Inactive lisinopril 2.5 mg tablet RxNorm: 328770 TAKE 1 TABLET BY MOUTH DAILY 2020 Inactive gabapentin 300 mg capsule RxNorm: 836749 TAKE 1 CAPSULE BY MOUTH THREE TIMES A DAY 021 2020 Inactive Singulair 10 mg tablet RxNorm: 762983 TAKE (1) TABLET BY MOUTH DAILY 2020 Inactive metformin 1,000 mg tablet RxNorm: 618297 1 Tablet(s) Oral two times a day 2020 Inactive atorvastatin 40 mg tablet RxNorm: 035068 1 Tablet(s) Oral every day 021 2020 Inactive omeprazole 20 mg capsule,delayed release RxNorm: 461586 1 Capsule(s) Oral every evening 2020 Inactive famotidine 10 mg tablet RxNorm: 739180 1 Tablet(s) Oral every morning 021 2020 Inactive Alcohol Prep Pads RxNorm: 116001 USE EACH MORNING 021 2020 Inactive omeprazole 20 mg capsule,delayed release RxNorm: 425435 1 Capsule(s) Oral two times a day 021 2021 Inactive omeprazole 20 mg capsule,delayed release RxNorm: 903741 TAKE 1 CAPSULE BY MOUTH EVERY DAY 2021 Inactive Macrobid 100 mg capsule RxNorm: 433911 1 Capsule(s) Oral every 12 hours with food 2020 Inactive omeprazole 20 mg capsule,delayed release RxNorm: 975729 1 Capsule(s) Oral two times a day 2021 Inactive metformin 1,000 mg tablet RxNorm: 271203 1 Tablet(s) Oral two times a day 2020 Inactive start on September 11, 2020 metformin 500 mg tablet RxNorm: 218248 1 Tablet(s) Oral two times a day take with 500mg to equal 1000mg 2019 Inactive gabapentin 300 mg capsule RxNorm: 565201 TAKE 1 CAPSULE BY MOUTH THREE TIMES DAILY 2020 Inactive cetirizine 10 mg tablet RxNorm: 0047363 TAKE (1) TABLET BY MOUTH DAILY 2020 Inactive metformin 500 mg tablet RxNorm: 556793 1 Tablet(s) Oral two times a day 2019 Inactive loperamide 2 mg tablet RxNorm: 344204 1 Tablet(s) Oral as needed take one tablet after each loose stool, maximum of 8 tablets in 24 hours 2021 Inactive Sudafed 12 Hour 120 mg tablet,extended release RxNorm: 0556604 TAKE 1 TABLET BY MOUTH EVERY 12 HOURS NEEDED 2019 Inactive hydrochlorothiazide 25 mg tablet RxNorm: 018573 TAKE (1) TABLET BY MOUTH EVERY DAY 2019 Inactive omeprazole 20 mg capsule,delayed release RxNorm: 158633 TAKE 1 CAPSULE BY MOUTH EVERY DAY 2020 Inactive metformin 500 mg tablet RxNorm: 978472 1 Tablet(s) Oral every day 2019 Inactive True Metrix Glucose Test Strip RxNorm: 1 Test Strips Miscellaneous two times a day as needed No Stop Date Active metformin 500 mg tablet RxNorm: 409977 1 Tablet(s) Oral every day 020 2019 Inactive diclofenac sodium 75 mg tablet,delayed release RxNorm: 940035 1 Tablet(s) PO BID 2021 Inactive This refill negates all other refills of this medication Sudafed 12 Hour 120 mg tablet,extended release RxNorm: 5723115 TAKE 1 TABLET BY MOUTH EVERY 12 HOURS NEEDED 020 2019 Inactive True Metrix Glucose Test Strip RxNorm: 1 Test Strips Miscellaneous every morning 020 2019 Inactive 100/container True Metrix Glucose Test Strip RxNorm: 1 Test Strips Miscellaneous QAM 020 2019 Inactive 100/container loperamide 2 mg tablet RxNorm: 152074 1 Tablet(s) Oral as needed take one tablet after each loose stool, maximum of 8 tablets in 24 hours 020 2019 Inactive cetirizine 10 mg tablet RxNorm: 1085668 1 Tablet(s) PO daily 2019 Inactive loperamide 2 mg tablet RxNorm: 089006 1 Tablet(s) Oral as needed take one tablet after each loose stool, maximum of 8 tablets in 24 hours 020 2019 Inactive quetiapine 100 mg tablet RxNorm: 584096 1 Tablet(s) Oral every night at bedtime 2019 Inactive levothyroxine 50 mcg tablet RxNorm: 055399 1 Tablet(s) PO daily 020 2020 Inactive gabapentin 300 mg capsule RxNorm: 848042 1 Capsule(s) PO TID 2019 Inactive levothyroxine 50 mcg tablet RxNorm: 420611 1 Tablet(s) PO daily 2019 Inactive lisinopril 2.5 mg tablet RxNorm: 415650 1 Tablet(s) PO daily 020 2020 Inactive gabapentin 300 mg capsule RxNorm: 260338 1 Capsule(s) PO TID 2019 Inactive cetirizine 10 mg tablet RxNorm: 6155144 1 Tablet(s) PO daily 020 2019 Inactive Singulair 10 mg tablet RxNorm: 874721 1 Tablet(s) PO daily 020 2020 Inactive gentamicin 0.3 % eye drops RxNorm: 187864 1 Drop(s) ophthalmic (eye) four times a day 2019 Inactive gentamicin 0.3 % eye drops RxNorm: 546662 1 Drop(s) ophthalmic (eye) four times a day 2019 Inactive gentamicin 0.3 % eye drops RxNorm: 566241 1 Drop(s) ophthalmic (eye) four times a day 2019 Inactive hydrochlorothiazide 25 mg tablet RxNorm: 881310 1 Tablet(s) Oral every day 2019 Inactive Sudafed 12 Hour 120 mg tablet,extended release RxNorm: 7642703 TAKE (1) TABLET BY MOUTH EVERY 12 HOURS NEEDED 2019 Inactive loperamide 2 mg tablet RxNorm: 109805 1 Tablet(s) Oral as needed take one tablet after each loose stool, maximum of 8 tablets in 24 hours 2019 Inactive loperamide 2 mg tablet RxNorm: 722270 1 Tablet(s) Oral as needed take one tablet after each loose stool, maximum of 8 tablets in 24 hours 2019 Inactive atorvastatin 40 mg tablet RxNorm: 659597 1 Tablet(s) Oral every day 2020 Inactive quetiapine 100 mg tablet RxNorm: 087527 1 Tablet(s) Oral every night at bedtime 2019 Inactive sertraline 100 mg tablet RxNorm: 051610 1 Tablet(s) Oral 2019 Inactive omeprazole 20 mg capsule,delayed release RxNorm: 153871 1 Capsule(s) Oral every day 2019 Inactive amoxicillin 250 mg capsule RxNorm: 973692 1 Capsule(s) Oral three times a day 2019 Inactive multivitamin with iron-mineral tablet RxNorm: 1 Tablet(s) Oral every day 2021 Inactive cetirizine 10 mg tablet RxNorm: 1984292 1 Tablet(s) PO daily 2019 Inactive This refill negates all other refills of this medication. Please do not auto refill Singulair 10 mg tablet RxNorm: 877929 1 Tablet(s) PO daily 2019 Inactive This refill negates all other refills of this medication gabapentin 300 mg capsule RxNorm: 873976 1 Capsule(s) PO TID 2019 Inactive lisinopril 2.5 mg tablet RxNorm: 904487 1 Tablet(s) PO daily 2019 Inactive levothyroxine 50 mcg tablet RxNorm: 048185 1 Tablet(s) PO daily 2019 Inactive This refill negates all other refills of this medication hydrochlorothiazide 25 mg tablet RxNorm: 767887 1 Tablet(s) Oral every day 2019 Inactive fenugreek seed extract 500 mg capsule RxNorm: 1 Capsule(s) Oral three times a day 2021 Inactive Alcohol Prep Pads RxNorm: 751608 1 Patch TOP QAM 2020 Inactive loperamide 2 mg tablet RxNorm: 308108 1 Tablet(s) Oral as needed take one [...] 2019 Inactive hydrochlorothiazide 25 mg tablet RxNorm: 934769 1 Tablet(s) Oral every day 2019 Inactive Sudafed 12 Hour 120 mg tablet,extended release RxNorm: 5706131 1 Tablet(s) Oral every 12 hours as needed 019 2018 Inactive omeprazole 20 mg capsule,delayed release RxNorm: 200540 1 Capsule(s) Oral every day 019 2019 Inactive Sudafed 12 Hour 120 mg tablet,extended release RxNorm: 7786514 1 Tablet(s) Oral every 12 hours as needed 2018 Inactive pantoprazole 40 mg tablet,delayed release RxNorm: 846702 1 Tablet(s) Oral every day 019 2018 Inactive discontinue any other H2Blkr. and PPI albuterol sulfate 2.5 mg/3 mL (0.083 %) solution for nebulization RxNorm: 285056 1 Vial Inhalation every four hours as needed as needed for dyspnea 2019 Inactive 60/box. This refill negates all other refills of this medication. Please do not fill early. Please do not auto refill. Symbicort 160 mcg-4.5 mcg/actuation HFA aerosol inhaler RxNorm: 5558852 2 Puff(s) INH BID No Stop Date Active Alcohol Prep Pads RxNorm: 986463 1 Patch TOP QAM 019 2019 Inactive Ventolin HFA 90 mcg/actuation aerosol inhaler RxNorm: 536589 2 Puff(s) INH QID 2019 Inactive Please do not fill early. Please do not auto refill. This refill negates all other refills of this medication True Metrix Glucose Test Strip RxNorm: 1 Test Strips Miscellaneous QAM 019 2019 Inactive 100/container atorvastatin 40 mg tablet RxNorm: 937212 1 Tablet(s) Oral every day 019 2019 Inactive buspirone 7.5 mg tablet RxNorm: 988563 1 Tablet(s) PO BID 019 2020 Inactive This refill negates all other refills of this medication hydrochlorothiazide 12.5 mg tablet RxNorm: 892372 1 Tablet(s) PO QAM 019 2019 Inactive levmetamfetamine 50 mg nasal inhaler RxNorm: 1 Unit(s) NASAL Q3-4H Do not use more than every 3 hours or 8 times/24hours 2021 Inactive Please do not auto refill. This refill negates all other refills of this medication Ventolin HFA 90 mcg/actuation aerosol inhaler RxNorm: 948988 2 Puff(s) INH QID 2018 Inactive Please do not fill early. Please do not auto refill. This refill negates all other refills of this medication Singulair 10 mg tablet RxNorm: 314349 1 Tablet(s) PO daily 019 2019 Inactive This refill negates all other refills of this medication cetirizine 10 mg tablet RxNorm: 6419864 1 Tablet(s) PO daily 019 2019 Inactive This refill negates all other refills of this medication. Please do not auto refill levothyroxine 50 mcg tablet RxNorm: 401191 1 Tablet(s) PO daily 019 2019 Inactive This refill negates all other refills of this medication diclofenac sodium 75 mg tablet,delayed release RxNorm: 069157 1 Tablet(s) PO BID 019 2019 Inactive This refill negates all other refills of this medication ranitidine 150 mg tablet RxNorm: 250422 1 Tablet(s) PO BID 019 2018 Inactive This refill negates all other refills of this medication Calcium 600-D3 Plus (mag-zinc) 600 mg calcium-800 unit-50 mg tablet RxNorm: 1 Tablet(s) PO daily take an additonal tablet for itching. 019 2018 Inactive This refill negates all other refills of this medication albuterol sulfate 2.5 mg/3 mL (0.083 %) solution for nebulization RxNorm: 174398 1 Vial INH QID 019 2018 Inactive 60/box. This refill negates all other refills of this medication. Please do not fill early. Please do not auto refill. lisinopril 2.5 mg tablet RxNorm: 501973 1 Tablet(s) PO daily 019 2019 Inactive gabapentin 300 mg capsule RxNorm: 683739 1 Capsule(s) PO TID 019 2019 Inactive atorvastatin 20 mg tablet RxNorm: 199061 1 Tablet(s) PO QHS 2018 Inactive This refill negates all other refills of this medication TRUEplus Lancets 30 gauge RxNorm: 1 Lancets Miscellaneous QAM 019 2018 Inactive 100/box gabapentin 300 mg capsule RxNorm: 208366 1 Capsule(s) PO TID 019 2018 Inactive Flintstones Complete (iron) 18 mg iron chewable tablet RxNorm: 1 Tablet(s) PO daily 2021 Inactive This refill negates all other refills of this medication gabapentin 300 mg capsule RxNorm: 734203 1 Capsule(s) PO TID as needed 019 2018 Inactive True Metrix Glucose Test Strip RxNorm: 1 Test Strips Miscellaneous QA 019 2018 Inactive 100/container Alcohol Prep Pads RxNorm: 821801 1 Patch TOP QAM 2018 Inactive TRUEplus Lancets 30 gauge RxNorm: 1 Lancets Miscellaneous QAM 019 2018 Inactive 100/box lisinopril 2.5 mg tablet RxNorm: 915997 1 Tablet(s) PO daily 019 2018 Inactive ranitidine 150 mg tablet RxNorm: 793623 1 Tablet(s) PO BID 019 2018 Inactive This refill negates all other refills of this medication albuterol sulfate 2.5 mg/3 mL (0.083 %) solution for nebulization RxNorm: 304836 1 Vial INH QID 019 2018 Inactive [...] this medication gabapentin 300 mg capsule RxNorm: 511676 1 Capsule(s) PO TID as needed 019 2018 Inactive atorvastatin 20 mg tablet RxNorm: 544220 1 Tablet(s) PO QHS 019 2018 Inactive This refill negates all other refills of this medication trazodone 50 mg tablet RxNorm: 158070 1 Tablet(s) PO QHS 019 2018 Inactive This refill negates all other refills of this medication Ventolin HFA 90 mcg/actuation aerosol inhaler RxNorm: 639352 2 Puff(s) INH QID 019 2018 Inactive Please do not fill early. Please do not auto refill. This refill negates all other refills of this medication Calcium 600-D3 Plus 600 mg calcium-800 unit-50 mg tablet RxNorm: 1 Tablet(s) PO daily take an additonal tablet for itching. 019 2018 Inactive This refill negates all other refills of this medication Singulair 10 mg tablet RxNorm: 840717 1 Tablet(s) PO daily 019 2018 Inactive This refill negates all other refills of this medication buspirone 7.5 mg tablet RxNorm: 601999 1 Tablet(s) PO BID 019 2018 Inactive This refill negates all other refills of this medication diclofenac sodium 75 mg tablet,delayed release RxNorm: 827566 1 Tablet(s) PO BID 019 2018 Inactive This refill negates all other refills of this medication hydrochlorothiazide 12.5 mg tablet RxNorm: 254399 1 Tablet(s) PO QAM 2018 Inactive metoprolol succinate ER 50 mg tablet,extended release 24 hr RxNorm: 088872 1 Tablet(s) PO daily 2018 Inactive This refill negates all other refills of this medication levothyroxine 50 mcg tablet RxNorm: 716598 1 Tablet(s) PO daily 019 2018 Inactive This refill negates all other refills of this medication cetirizine 10 mg tablet RxNorm: 8059180 1 Tablet(s) PO daily 019 2018 Inactive This refill negates all other refills of this medication. Please do not auto refill Flintstones Complete (iron) 18 mg iron chewable tablet RxNorm: 1 Tablet(s) PO daily 2018 Inactive This refill negates all other refills of this medication buspirone 7.5 mg tablet RxNorm: 806479 1 Tablet(s) PO BID 2018 Inactive cetirizine 10 mg tablet RxNorm: 0265889 1 Tablet(s) PO daily 2018 Inactive Guaiasorb DM 10 mg-100 mg/5 mL oral liquid RxNorm: 077174 10 Milliliter(s) PO As needed every 4 hr 2018 Inactive Vicks Vaporub 4.7 %-1.2 %-2.6 % topical ointment RxNorm: 4747939 1 Application TOP TID 2018 Inactive levmetamfetamine 50 mg nasal inhaler RxNorm: 1 Unit(s) NASAL Q3-4H 2017 Inactive sertraline 50 mg tablet RxNorm: 229371 1 Tablet(s) PO daily 2018 Inactive Please note dose trazodone 50 mg tablet RxNorm: 552348 1 Tablet(s) PO QHS 018 2018 Inactive sertraline 50 mg tablet RxNorm: 844409 1 Tablet(s) PO daily 2017 Inactive amoxicillin 500 mg tablet RxNorm: 613926 1 Tablet(s) PO Q12H 018 2017 Inactive albuterol sulfate 2.5 mg/3 mL (0.083 %) solution for nebulization RxNorm: 177568 1 Vial INH QID 018 2018 Inactive 60/box. Please do not fill early. Please do not auto refill. Prozac 10 mg capsule RxNorm: 463886 1 Capsule(s) PO daily 018 2017 Inactive buspirone 7.5 mg tablet RxNorm: 989904 1 Tablet(s) PO BID 018 2018 Inactive gabapentin 300 mg capsule RxNorm: 365536 1 Capsule(s) PO TID as needed 018 2018 Inactive hydrochlorothiazide 12.5 mg tablet RxNorm: 426964 1 Tablet(s) PO QAM 018 2018 Inactive ranitidine 150 mg tablet RxNorm: 627952 1 Tablet(s) PO BID 018 2018 Inactive Macrobid 100 mg capsule RxNorm: 476814 1 Capsule(s) PO Q12H 018 2017 Inactive Singulair 10 mg tablet RxNorm: 598090 1 Tablet(s) PO daily 018 2018 Inactive Ventolin HFA 90 mcg/actuation aerosol inhaler RxNorm: 3771658 2 Puff(s) INH QID 018 2018 Inactive Singulair 10 mg tablet RxNorm: 108629 1 Tablet(s) PO daily 018 2017 Inactive buspirone 7.5 mg tablet RxNorm: 894489 1 Tablet(s) PO BID 018 2017 Inactive Prozac 10 mg capsule RxNorm: 928165 1 Capsule(s) PO daily 018 2017 Inactive diclofenac sodium 75 mg tablet,delayed release RxNorm: 828142 1 Tablet(s) PO BID 018 2017 Inactive lisinopril 2.5 mg tablet RxNorm: 944727 1 Tablet(s) PO daily 018 2017 Inactive Neil[facility] Pediatric Sinus Rinse Refill packet RxNorm: 1 Unit Dose NASAL PRN 018 2021 Inactive metoprolol succinate ER 50 mg tablet,extended release 24 hr RxNorm: 719882 1 Tablet(s) PO daily 018 2017 Inactive levothyroxine 50 mcg tablet RxNorm: 212789 1 Tablet(s) PO daily 018 2017 Inactive TRUEplus Lancets 30 gauge RxNorm: 1 Lancets Miscellaneous QAM 018 2017 Inactive 100/box Ventolin HFA 90 mcg/actuation aerosol inhaler RxNorm: 789782 2 Puff(s) INH QID 018 2017 Inactive Aleve 220 mg capsule RxNorm: 0285194 1 Capsule(s) PO BID 018 2018 Inactive ranitidine 150 mg tablet RxNorm: 828495 1 Tablet(s) PO BID 018 2017 Inactive gabapentin 300 mg capsule RxNorm: 079283 1 Capsule(s) PO TID as needed 018 2017 Inactive atorvastatin 20 mg tablet RxNorm: 866411 1 Tablet(s) PO QHS 018 2017 Inactive True Metrix Glucose Test Strip RxNorm: 1 Test Strips Miscellaneous QA 018 2017 Inactive 50/container Calcium 600-D3 Plus 600 mg calcium-800 unit-50 mg tablet RxNorm: 1 Tablet(s) PO daily take an additonal tablet for itching. 018 2017 Inactive hydrochlorothiazide 12.5 mg tablet RxNorm: 126336 1 Tablet(s) PO QAM 018 2017 Inactive Flintstones Complete (iron) 18 mg iron chewable tablet RxNorm: 1 Tablet(s) PO daily 018 2017 Inactive True Metrix Glucose Meter RxNorm: miscellaneous 2018 Inactive sertraline 50 mg tablet RxNorm: 307889 1 Tablet(s) PO daily 020 2019 Inactive loperamide 2 mg tablet RxNorm: 631580 oral 019 2018 Inactive d-mannose oral powder RxNorm: PO 018 2021 Inactive Symbicort 160 mcg-4.5 mcg/actuation HFA aerosol inhaler RxNorm: 5147116 2 Puff(s) INH BID 2018 Inactive Medication Administered No Medication Administered data Procedures Procedure Codes Date Patient Health Questionnaire CPT-4: DPHQ Electrocardiogram CPT-4: 45123 06/24/2023 Urinalysis, dip stick CPT-4: 85455 05/04/2023 [place] Assessment CPT-4: DSWA 01/02 Fall Risk Assessment CPT-4: DFRA 01/27/2023 Hypertension CPT-4: HTN 01/27/2023 Patient Health Questionnaire CPT-4: DPHQ Pain Screening CPT-4: PAS 2022 Tobacco Assessment/Screening CPT-4: TCA Hypertension CPT-4: HTN 08/17/2022 [place] Assessment CPT-4: DSWA 04/02 Patient Health [...] CPT-4: VACP Fall Risk Assessment SNOMED CT: 12829579 4 CPT-4: DFRA04/13/2021[place] AssessmentCPT-4: DSWA1Urinalysis, dip stickCPT-4: 1691983Patient Health QuestionnaireCPT-4: DPHQ 08/19/2020ElectrocardiogramCPT-4: 2812955Tobacco Assessment/Screening CPT-4: TCA01/01/2020Fall Risk AssessmentSNOMED CT: 784195508 CPT-4: DFRA01/01/2020Functional AssessmentCPT-4: DFA01/01/2020[place] AssessmentCPT-4: DSWA11/28/2019Patient Health QuestionnaireCPT-4: DPHQ11/28/2019 [place] AssessmentCPT-4: DS10/17/2019HypertensionCPT-4: HTN10/17/[address]: 434931278 CPT-4: DFRA09/19/2019Functional AssessmentCPT-4: DFA111/20/2018Urinalysis, dip stickCPT-4: 3274314Tobacco Assessment/ScreeningCPT-4: TCA05/24/2019 Patient Health QuestionnaireCPT-4: DPHQ05/24/2019AHA/REBECCA Classification AssessmentCPT-4: DAHA04/25/2019Controlled Substance ReportCPT-4: CTRSU04/25/2019 Urinalysis, dip stickCPT-4: 665434903/28/2019Urinalysis, dip stickCPT-4: 54797 03/28/20190924W2B-RggvssougbcnrdnLQH-1: 33488HxmxrmdK4U-PkcmyvyfnycojjoSMG-1: 67187 JbovphlN4X-GsrcimyqnegnxcnMPJ-0: 88165ByuonfhM8H-RivrknihtbldhnpVIX-4: 30778 HbleffkD9Q-NyeodasvtftlehiADS-4: 76087WuygfvzR3D-GimnycoescphrtdSQP-8: 82992 KjesyocB0D-SnrgcjomqbyxegyPIJ-8: 24543YsurnrsX7M-OoihejxborbxjnkWZZ-6: 72174 NyoylheE6U-ClmiuifltlblitnTPC-4: 30323TieplteA1F-EgurndfooinfcvgCWH-9: 69016 PnvwbjpT1J-AwfnhcxiraywhcsEUB-1: 11324ZecobxuA5X-UcmpnwktrldkqcuVJC-6: [address]: 114162143 CPT-4: T44Tidqlso Reason For Visit No Reason For Visit data Plan of Care Planned Activity Notes Codes Status Date Referral: Pending Gynecology Referral Informatio n Referral ProcessedReferral: Pending Pulmonology Referral InformationReferralProcessed Referral: Pending Psychiatry Referral InformationReferralInitiatedReferral: Pending Respiratory Services Referral InformationReferralInitiatedReferral: Pending Ophthalmology Referral InformationReferralInitiatedReferral: [facility] WPtel: [address] [place] [address] [address] [place] [address] USWriter placed a call out to the patient to notify her that it has been recommended that she be seenby a urologist. Patient agreed to be seen, does not have a provider of choice and no transportationissues. Domestic Travel Consultant faxed referral and clinical notes to [facility] in [place], [place] near the patient's home. Patient to [...] seen and prefers a provider in the [place] or [facility]. Domestic Travel Consultant placed a call out to everyone listed in the area and the only location that was able to accept the patient's insurance was [place] [address] [place] [address] and spoke with Maylin. Maylin asked that the patient's referral, face sheet and visit notes be faxed to . Domestic Travel Consultant faxed over requested documents. Patient appointment confirmation letter generated and mailed to her home address. Patient to call to schedule an appointment.ProcessedReferral: [facility] WPtel: [address] [facility] [address] [id number] USPatient notified that it has been advised that she be seen by Neurology. Patient agreed to be seen and prefers to be seen by a provider in the [place], [place] area. Patient denies any concerns with transportation, and prefers to schedule her own appointment. Domestic Travel Consultant placed a call out to [facility] and spoke with Neeraj P: who confirmed that their office is able to acceptnew patients and the patient's insurance. After confirming the providers fax number, rfp writer faxed over the patient's referral, and [...]
--- OUTSIDE RECORDS SUMMARY | 2024-01-03 23:29 | XMS_ITS | CCD ---
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 Child Care Lead Teacher Name Role Phone Palomo KING, Anna Primary Care Provider Unav ailable Unavailable Chronic Care Management Unavaila ble Summary Purpose DataExchange Insurance Providers Payer name Policy type / Coverage type Covered constitution party ID Effective Begin Date Effective End Date [facility] [id number] Unknown Unknown Family history Mother Diagnosis Age [...] 05/31/2018 Education level Unknown Some High School 10th05/31/20183443HccbsvwvwoGgfxtzsGycwnlhhyo75/29/2018Tobacco historySNOMED CT: 051131386Erg never smoked or chewed yectphs2705/31/2018Alcohol historySNOMED CT: 710330669Bxdfx drinks ycykjee9405/31/2018Has the patient ever used illegal drugs? UnknownHas never used illegal drugs05/31/2018DNR Order/ Advanced Directive UnknownFull Code05/31/2018 Allergies, Adverse Reactions, Alerts Substance Reaction Codes Entered Date Inactivated Date Status OxyContin itch, RxNorm: 935646 01/13/2021 No Inactive Da te Active *No known food allergies Amizkld6909/06/2018No Inactive DateActiveMethylprednisolonehivesRxNorm: 6902 09/06/2018No Inactive DateActive Problems Condition Codes Effective Dates Condition St atus Impetigo ICD-10: L01.00 ICD-9: 82062/4ActiveMajor depression, recurrentICD-10: F33.9 ICD-9: 296.3009/21/2022ActiveType 2 diabetes mellitus with hyperglycemia, without long-term current use of insulinICD-10: E11.65 ICD-9: 250.0011/ctiveHypertensive heart disease without heart failure ICD-10: I11.9 ICD-9: 402.9003/ctiveType 2 diabetes mellitus with peripheral neuropathy ICD-10: E11.42 ICD-9: 250.6002/ActiveUpper respiratory infectionICD-10: J06.9 ICD-9: 465.912/ctiveEncounter for immunizationICD-10: Z23 ICD-9: V04.8111/ctiveRight foot painICD-10: M79.671 ICD-9: 729.511/ctiveAdult BMI 50.0-59.9 kg/sq mICD-10: Z68.43 ICD-9: V85.4308ActiveAllergic rhinitisICD-10: J30.9 ICD-9: 477.903/ctiveHyperlipidemia, mixedICD-10: E78.2 ICD-9: [...] middle fingerICD-10: S61.A ICD-9: 883.001/InactiveHypertensionICD-10: I10 ICD-9: 401.903ctivePost-traumatic stress disorder, unspecifiedICD-10: F43.10 ICD-9: 309.8112ActiveAdjustment disorder [...] UXZ.01 ICD-9: UXZ.0112/1ResolvedSyncope and collapseICD-10: R55 ICD-9: 780.203ActiveUrinary retention with incomplete bladder emptying ICD-10: R33.9 ICD-9: 788.2101ActiveApnea, not elsewhere classifiedICD-10: R06.81 ICD-9: 786.0305/10/2018InactiveChest pain, unspecifiedICD-10: R07.9 ICD-9: 786.5002InactiveChronic kidney disease, unspecifiedICD-10: N18.9 ICD-9: 585.909InactiveEncounter for immunizationICD-10: Z23 ICD-9: V03.907/InactiveEncounter for preprocedural cardiovascular examinationICD-10: Z01.810 ICD-9: V72.8106/InactiveHeadacheICD-10: R51 ICD-9: 784.001InactiveOther technician terminal and repeater (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ICD-10: Z79.899 ICD-9: V58.6907InactiveType 2 diabetes mellitus without complications ICD-10: E11.9 ICD-9: 250.0001InactiveWheezingICD-10: R06.2 ICD-9: 786.0711InactiveAbnormal urine findingICD-10: R82.90 ICD-9: 791.912/ResolvedAbrasion of toeICD-10: S90.416A ICD-9: 917.005ResolvedPink eyeICD-10: H10.029 ICD-9: 372.0303ResolvedRight wrist painICD-10: M25.531 ICD-9: 719.4308/09/2020ResolvedSinusitisICD-10: J32.9 ICD-9: 473.9011/07/2019ResolvedSuperficial burn of multiple sites of right hand, subsequent encounterICD-10: T23.191D ICD-9: V58.8911/28/2020esolvedPolyneuropathy, unspecifiedICD-10: G62.9 ICD-9: 356.908/ActiveFecal incontinenceICD-10: R15.9 ICD-9: 787.6003ActiveMixed incontinenceICD-10: N39.46 ICD-9: 788.3308Active Medications Medication Codes Instructions Start Date Stop Date Status Fill Instructions montelukast 10 mg tablet RxNorm: 594831 Take 1 Tablet(s) Oral every day 024 2023 Active gabapentin 300 mg capsule RxNorm: 442159 Take 1 Capsule(s) Oral three times a day 024 2023 Active hydrocortisone 2.5 % topical cream RxNorm: 836604 Apply Application Topical two times a day a thin layer to the affected area(s) No Stop Date Active amoxicillin 500 mg tablet RxNorm: 183756 Take 1 Tablet(s) Oral two times a day 024 2023 Inactive omeprazole 40 mg capsule,delayed release RxNorm: 972394 Take 1 Capsule(s) Oral HS 024 2023 Active Januvia 100 mg tablet RxNorm: 823407 Take 1 Tablet(s) Oral every day 023 2023 Active amoxicillin 250 mg capsule RxNorm: 745048 Take 1 Capsule(s) Oral three times a day 023 2022 Inactive amoxicillin 500 mg tablet RxNorm: 223796 Take 1 Tablet(s) Oral three times a day 023 2022 Inactive Ozempic 1 mg/dose (4 mg/3 mL) subcutaneous pen injector RxNorm: 7204534 INJECT 1 UNITS DOSE SUBCUTANEOUSLY ON TUESDAY OF EACH WEEK 023 2023 Active MED IS ON B/O omeprazole 40 mg capsule,delayed release RxNorm: 932926 Take 1 Capsule(s) Oral HS 023 2022 Inactive Januvia 50 mg tablet RxNorm: 494030 Take 1 Tablet(s) Oral two times a day 023 2023 Inactive famotidine 20 mg tablet RxNorm: 832774 TAKE 1 TABLET BY MOUTH EACH MORNING 023 2023 Active Januvia 25 mg tablet RxNorm: 635824 Take 1 Tablet(s) Oral every day 023 2022 Inactive Ozempic 1 mg/dose (4 mg/3 mL) subcutaneous pen injector RxNorm: 0915163 INJECT 1 UNITS DOSE SUBCUTANEOUSLY ON TUESDAY OF EACH WEEK 023 2022 Inactive cetirizine 10 mg tablet RxNorm: 6471075 TAKE (1) TABLET BY MOUTH DAILY 023 2023 Inactive amoxicillin 500 mg tablet RxNorm: 759761 Take 1 Tablet(s) Oral two times a day 023 2022 Inactive omeprazole 40 mg capsule,delayed release RxNorm: 011821 Take 1 Capsule(s) Oral at bed time 023 2022 Inactive Easy Touch Alcohol Prep Pads RxNorm: 482590 USE EACH MORNING 023 2024 Active montelukast 10 mg tablet RxNorm: 066783 Take 1 Tablet(s) Oral every day 023 2022 Inactive gabapentin 300 mg capsule RxNorm: 860165 Take 1 Capsule(s) Oral three times a day 023 2022 Inactive metformin ER 500 mg 24 hr tablet,extended release RxNorm: 9783555 Take 1 Tablet(s) Oral every day with the evening meal 023 2022 Inactive famotidine 20 mg tablet RxNorm: 171907 Take 1 Tablet(s) Oral every morning 023 2022 Inactive levothyroxine 50 mcg tablet RxNorm: 223278 Take 1 Tablet(s) Oral every day 023 2023 Active Msg From [facility]: Dr. Zapata Requested hydrochlorothiazide 25 mg tablet RxNorm: 341583 Take 1 Tablet(s) Oral every day 023 2023 Active Msg From [facility]: Approval Requested atorvastatin 20 mg tablet RxNorm: 949497 Take 1 Tablet(s) Oral every night at bedtime 023 2023 Active Macrobid 100 mg capsule RxNorm: 089665 1 Capsule(s) Oral every 12 hours with food 023 2022 Inactive omeprazole 40 mg capsule,delayed release RxNorm: 20021111 Take 1 Capsule(s) Oral every night at bedtime 023 2022 Inactive trazodone 50 mg tablet RxNorm: 064352 Administer 1 Tablet(s) Oral every night at bedtime 023 No Stop Date Active cholecalciferol (vitamin D3) 50 mcg (2,000 unit) tablet RxNorm: 295367 Take 1 Tablet(s) Oral every day 023 2023 Active Ozempic 1 mg/dose (4 mg/3 mL) subcutaneous pen injector RxNorm: 6579287 USE 1 UNIT DOSE SUBCUTANEOUSLY ON TUE OF EACH WEEK 023 2022 Inactive lisinopril 2.5 mg tablet RxNorm: 059245 Take 1 Tablet(s) Oral every day 023 2022 [facility] Ozempic 1 mg/dose (4 mg/3 mL) subcutaneous pen injector RxNorm: 5260044 USE 1 UNIT DOSE SUBCUTANEOUSLY ON TUE OF EACH WEEK 023 2022 Inactive omeprazole 40 mg capsule,delayed release RxNorm: 20021111 Take 1 Capsule(s) Oral every night at bedtime 023 2022 Inactive gabapentin 300 mg capsule RxNorm: 960063 Take 1 Capsule(s) Oral three times a day 023 2022 Inactive montelukast 10 mg tablet RxNorm: 882220 Take 1 Tablet(s) Oral every day 023 2022 Inactive omeprazole 20 mg capsule,delayed release RxNorm: 166573 Take 1 Capsule(s) Oral every evening 2022 Inactive Alcohol Prep Pads RxNorm: 567350 USE EACH MORNING 2021 Inactive E11.42 clotrimazole 1 % topical cream RxNorm: 428200 Apply 1 Application Topical two times a day as needed apply to affected area(s) twice daily until healed 2021 Inactive Victoza 2-Sebastián 0.6 mg/0.1 mL (18 mg/3 mL) subcutaneous pen injector RxNorm: 127049 Inject 0.6-1.8 Milligram(s) Subcutaneous once a week Inject 0.6mg/0.1ml week one, 1.2mg/0.2ml week two, 1.8/0.3ml weekly thereafter 2021 Inactive ibuprofen 800 mg tablet RxNorm: 662635 Take 1 Tablet(s) Oral Q8H as needed for pain take with food No Stop Date Active Ozempic 1 mg/dose (4 mg/3 mL) subcutaneous pen injector RxNorm: 1574881 Take 1 Unit Dose Subcutaneous QWeek Tuesday2021 Inactive lisinopril 2.5 mg tablet RxNorm: 455115 Take 1 Tablet(s) Oral every day 022 2021 Inactive lisinopril 2.5 mg tablet RxNorm: 670440 Take 1 Tablet(s) Oral every day 022 2022 Inactive hydrochlorothiazide 25 mg tablet RxNorm: 463400 Take 1 Tablet(s) Oral every day 022 2021 Inactive Ozempic 1 mg/dose (4 mg/3 mL) subcutaneous pen injector RxNorm: 5529404 Take 1 Unit Dose Subcutaneous QWeek 022 2021 Inactive famotidine 20 mg tablet RxNorm: 903563 Take 1 Tablet(s) Oral every morning 022 2021 Inactive levothyroxine 50 mcg tablet RxNorm: 005377 Take 1 Tablet(s) Oral every day 022 2021 Inactive atorvastatin 20 mg tablet RxNorm: 905439 Take 1 Tablet(s) Oral every night at bedtime 022 2021 Inactive Cleocin T 1 % lotion RxNorm: 249029 Take 2 Gram(s) Topical every day 022 2021 Inactive Cleocin T 1 % lotion RxNorm: 595317 Take 2 Gram(s) Topical every day 022 2021 Inactive Ozempic 1 mg/dose (4 mg/3 mL) subcutaneous pen injector RxNorm: 1074981 Take 1 Unit Dose Subcutaneous QWeek 022 2021 Inactive Ozempic 0.25 mg or 0.5 mg (2 mg/1.5 mL) subcutaneous pen injector RxNorm: 2513565 INJECT 0.5 MGS SUBCUTANEOUSLY EVERY WEEK 2021 Inactive omeprazole 20 mg capsule,delayed release RxNorm: 375608 Take 1 Capsule(s) Oral every evening 2021 Inactive levothyroxine 50 mcg tablet RxNorm: 267913 Take 1 Tablet(s) Oral every day 022 2021 Inactive atorvastatin 20 mg tablet RxNorm: 855246 Take 1 Tablet(s) Oral every night at bedtime 2021 Inactive This refill negates all other refills of this medication lisinopril 2.5 mg tablet RxNorm: 434096 Take 1 Tablet(s) Oral every day 022 2021 Inactive gabapentin 300 mg capsule RxNorm: 081830 Take 1 Capsule(s) Oral three times a day 022 2021 Inactive montelukast 10 mg tablet RxNorm: 669798 Take 1 Tablet(s) Oral every day 022 2021 Inactive Myrbetriq 50 mg tablet,extended release RxNorm: 3790299 1 Tablet(s) Oral every day No Stop Date Active cholecalciferol (vitamin D3) 50 mcg (2,000 unit) tablet RxNorm: 400044 Take 1 Tablet(s) Oral every day 022 2022 Inactive Ozempic 0.25 mg or 0.5 mg (2 mg/1.5 mL) subcutaneous pen injector RxNorm: 9150221 inject 0.5 milligrams subcutaneously every week 022 2021 Inactive Ozempic 0.25 mg or 0.5 mg (2 mg/1.5 mL) subcutaneous pen injector RxNorm: 8122150 Take 0.5 Capsule(s) Injection once a week 022 2021 Inactive omeprazole 20 mg capsule,delayed release RxNorm: 217878 Take 1 Capsule(s) Oral every evening 2020 Inactive Ozempic 0.25 mg or 0.5 mg (2 mg/1.5 mL) subcutaneous pen injector RxNorm: 4053395 Take 0.25 Milligram(s) Subcutaneous once a week 2021 Inactive Easy Touch Alcohol Prep Pads RxNorm: 889132 USE DIRECTED EACH MORNING 021 2021 Inactive Probiotic 10 billion cell capsule RxNorm: 6194528 Take 1 Capsule(s) Oral every day 2021 Inactive levothyroxine 50 mcg tablet RxNorm: 505363 Take 1 Tablet(s) Oral every day 2020 Inactive Acid Lead Android Developer (famotidine) 20 mg tablet RxNorm: 121099 Take 1 Tablet(s) Oral every morning 2020 Inactive Heartburn Relief (famotidine) 10 mg tablet RxNorm: 784929 Take 1 Tablet(s) Oral QAM 2020 Inactive levothyroxine 50 mcg tablet RxNorm: 006224 Take 1 Tablet(s) Oral QD 021 2020 Inactive Singulair 10 mg tablet RxNorm: 058704 TAKE (1) TABLET BY MOUTH DAILY 2020 Inactive metformin 1,000 mg tablet RxNorm: 226603 1 Tablet(s) Oral two times a day 021 2021 Inactive lisinopril 2.5 mg tablet RxNorm: 731781 Take 1 Tablet(s) Oral every day 021 2020 Inactive hydrochlorothiazide 25 mg tablet RxNorm: 260298 Take 1 Tablet(s) Oral every day 021 2020 Inactive ondansetron 4 mg disintegrating tablet RxNorm: 776850 1 Tablet(s) Oral two times a day 021 2020 Inactive Sudafed 12 Hour 120 mg tablet,extended release RxNorm: 0728941 TAKE 1 TABLET BY MOUTH EVERY 12 HOURS NEEDED 2021 Inactive Heartburn Relief (famotidine) 10 mg tablet RxNorm: 028054 Take 1 Tablet(s) Oral every morning 021 2020 Inactive omeprazole 20 mg capsule,delayed release RxNorm: 021694 1 Capsule(s) Oral every evening 021 2020 Inactive sertraline 100 mg tablet RxNorm: 269482 2 Tablet(s) Oral every day 021 2020 Inactive levothyroxine 50 mcg tablet RxNorm: 713142 TAKE (1) TABLET BY MOUTH DAILY 021 2020 Inactive metformin 500 mg tablet RxNorm: 865164 1 Tablet(s) Oral two times a day take with 500mg to equal 1000mg 021 2020 Inactive gabapentin 300 mg capsule RxNorm: 270997 TAKE 1 CAPSULE BY MOUTH THREE TIMES A DAY 021 2020 Inactive lisinopril 2.5 mg tablet RxNorm: 741228 TAKE 1 TABLET BY MOUTH DAILY 021 2020 Inactive gabapentin 300 mg capsule RxNorm: 573933 TAKE 1 CAPSULE BY MOUTH THREE TIMES A DAY 021 2020 Inactive Singulair 10 mg tablet RxNorm: 510436 TAKE (1) TABLET BY MOUTH DAILY 021 2020 Inactive metformin 1,000 mg tablet RxNorm: 099751 1 Tablet(s) Oral two times a day 021 2020 Inactive atorvastatin 40 mg tablet RxNorm: 082790 1 Tablet(s) Oral every day 021 2020 Inactive omeprazole 20 mg capsule,delayed release RxNorm: 274206 1 Capsule(s) Oral every evening 2020 Inactive famotidine 10 mg tablet RxNorm: 616696 1 Tablet(s) Oral every morning 021 2020 Inactive Alcohol Prep Pads RxNorm: 732982 USE EACH MORNING 021 2020 Inactive omeprazole 20 mg capsule,delayed release RxNorm: 150770 1 Capsule(s) Oral two times a day 2021 Inactive omeprazole 20 mg capsule,delayed release RxNorm: 292708 TAKE 1 CAPSULE BY MOUTH EVERY DAY 2021 Inactive Macrobid 100 mg capsule RxNorm: 986249 1 Capsule(s) Oral every 12 hours with food 2020 Inactive omeprazole 20 mg capsule,delayed release RxNorm: 706489 1 Capsule(s) Oral two times a day 2021 Inactive metformin 1,000 mg tablet RxNorm: 142523 1 Tablet(s) Oral two times a day 2020 Inactive start on September 11, 2020 metformin 500 mg tablet RxNorm: 457739 1 Tablet(s) Oral two times a day take with 500mg to equal 1000mg 2019 Inactive gabapentin 300 mg capsule RxNorm: 549425 TAKE 1 CAPSULE BY MOUTH THREE TIMES DAILY 2020 Inactive cetirizine 10 mg tablet RxNorm: 6991728 TAKE (1) TABLET BY MOUTH DAILY 020 2020 Inactive metformin 500 mg tablet RxNorm: 697895 1 Tablet(s) Oral two times a day 2019 Inactive loperamide 2 mg tablet RxNorm: 624150 1 Tablet(s) Oral as needed take one tablet after each loose stool, maximum of 8 tablets in 24 hours 020 2021 Inactive Sudafed 12 Hour 120 mg tablet,extended release RxNorm: 9616290 TAKE 1 TABLET BY MOUTH EVERY 12 HOURS NEEDED 020 2019 Inactive hydrochlorothiazide 25 mg tablet RxNorm: 817944 TAKE (1) TABLET BY MOUTH EVERY DAY 020 2019 Inactive omeprazole 20 mg capsule,delayed release RxNorm: 605465 TAKE 1 CAPSULE BY MOUTH EVERY DAY 020 2020 Inactive metformin 500 mg tablet RxNorm: 079104 1 Tablet(s) Oral every day 020 2019 Inactive True Metrix Glucose Test Strip RxNorm: 1 Test Strips Miscellaneous two times a day as needed No Stop Date Active metformin 500 mg tablet RxNorm: 532133 1 Tablet(s) Oral every day 2019 Inactive diclofenac sodium 75 mg tablet,delayed release RxNorm: 943432 1 Tablet(s) PO BID 2021 Inactive This refill negates all other refills of this medication Sudafed 12 Hour 120 mg tablet,extended release RxNorm: 6710485 TAKE 1 TABLET BY MOUTH EVERY 12 HOURS NEEDED 020 2019 Inactive True Metrix Glucose Test Strip RxNorm: 1 Test Strips Miscellaneous every morning 020 2019 Inactive 100/container True Metrix Glucose Test Strip RxNorm: 1 Test Strips Miscellaneous QA 020 2019 Inactive 100/container loperamide 2 mg tablet RxNorm: 647631 1 Tablet(s) Oral as needed take one tablet after each loose stool, maximum of 8 tablets in 24 hours 020 2019 Inactive cetirizine 10 mg tablet RxNorm: 1159923 1 Tablet(s) PO daily 020 2019 Inactive loperamide 2 mg tablet RxNorm: 842621 1 Tablet(s) Oral as needed take one tablet after each loose stool, maximum of 8 tablets in 24 hours 2019 Inactive quetiapine 100 mg tablet RxNorm: 786638 1 Tablet(s) Oral every night at bedtime 2019 Inactive levothyroxine 50 mcg tablet RxNorm: 772815 1 Tablet(s) PO daily 2020 Inactive gabapentin 300 mg capsule RxNorm: 921784 1 Capsule(s) PO TID 2019 Inactive levothyroxine 50 mcg tablet RxNorm: 705498 1 Tablet(s) PO daily 2019 Inactive lisinopril 2.5 mg tablet RxNorm: 498630 1 Tablet(s) PO daily 2020 Inactive gabapentin 300 mg capsule RxNorm: 292753 1 Capsule(s) PO TID 2019 Inactive cetirizine 10 mg tablet RxNorm: 4783124 1 Tablet(s) PO daily 2019 Inactive Singulair 10 mg tablet RxNorm: 097586 1 Tablet(s) PO daily 2020 Inactive gentamicin 0.3 % eye drops RxNorm: 492533 1 Drop(s) ophthalmic (eye) four times a day 2019 Inactive gentamicin 0.3 % eye drops RxNorm: 879922 1 Drop(s) ophthalmic (eye) four times a day 2019 Inactive gentamicin 0.3 % eye drops RxNorm: 062956 1 Drop(s) ophthalmic (eye) four times a day 2019 Inactive hydrochlorothiazide 25 mg tablet RxNorm: 906080 1 Tablet(s) Oral every day 2019 Inactive Sudafed 12 Hour 120 mg tablet,extended release RxNorm: 2952931 TAKE (1) TABLET BY MOUTH EVERY 12 HOURS NEEDED 2019 Inactive loperamide 2 mg tablet RxNorm: 978201 1 Tablet(s) Oral as needed take one tablet after each loose stool, maximum of 8 tablets in 24 hours 2019 Inactive loperamide 2 mg tablet RxNorm: 836171 1 Tablet(s) Oral as needed take one tablet after each loose stool, maximum of 8 tablets in 24 hours 020 2019 Inactive atorvastatin 40 mg tablet RxNorm: 031627 1 Tablet(s) Oral every day 2020 Inactive quetiapine 100 mg tablet RxNorm: 629924 1 Tablet(s) Oral every night at bedtime 2019 Inactive sertraline 100 mg tablet RxNorm: 919068 1 Tablet(s) Oral 2019 Inactive omeprazole 20 mg capsule,delayed release RxNorm: 241717 1 Capsule(s) Oral every day 2019 Inactive amoxicillin 250 mg capsule RxNorm: 340155 1 Capsule(s) Oral three times a day 2019 Inactive multivitamin with iron-mineral tablet RxNorm: 1 Tablet(s) Oral every day 2021 Inactive cetirizine 10 mg tablet RxNorm: 7929742 1 Tablet(s) PO daily 2019 Inactive This refill negates all other refills of this medication. Please do not auto refill Singulair 10 mg tablet RxNorm: 342426 1 Tablet(s) PO daily 2019 Inactive This refill negates all other refills of this medication gabapentin 300 mg capsule RxNorm: 517384 1 Capsule(s) PO TID 2019 Inactive lisinopril 2.5 mg tablet RxNorm: 020451 1 Tablet(s) PO daily 2019 Inactive levothyroxine 50 mcg tablet RxNorm: 209216 1 Tablet(s) PO daily 2019 Inactive This refill negates all other refills of this medication hydrochlorothiazide 25 mg tablet RxNorm: 189913 1 Tablet(s) Oral every day 2019 Inactive fenugreek seed extract 500 mg capsule RxNorm: 1 Capsule(s) Oral three times a day 2021 Inactive Alcohol Prep Pads RxNorm: 389452 1 Patch TOP QAM 2020 Inactive loperamide 2 mg tablet RxNorm: 979967 1 Tablet(s) Oral as needed take one [...] 2019 Inactive hydrochlorothiazide 25 mg tablet RxNorm: 909209 1 Tablet(s) Oral every day 2019 Inactive Sudafed 12 Hour 120 mg tablet,extended release RxNorm: 9043390 1 Tablet(s) Oral every 12 hours as needed 2018 Inactive omeprazole 20 mg capsule,delayed release RxNorm: 136395 1 Capsule(s) Oral every day 2019 Inactive Sudafed 12 Hour 120 mg tablet,extended release RxNorm: 5694168 1 Tablet(s) Oral every 12 hours as needed 2018 Inactive pantoprazole 40 mg tablet,delayed release RxNorm: 441368 1 Tablet(s) Oral every day 2018 Inactive discontinue any other H2Blkr. and PPI albuterol sulfate 2.5 mg/3 mL (0.083 %) solution for nebulization RxNorm: 205034 1 Vial Inhalation every four hours as needed as needed for dyspnea 2019 Inactive 60/box. This refill negates all other refills of this medication. Please do not fill early. Please do not auto refill. Symbicort 160 mcg-4.5 mcg/actuation HFA aerosol inhaler RxNorm: 4880305 2 Puff(s) INH BID 019 No Stop Date Active Alcohol Prep Pads RxNorm: 488602 1 Patch TOP QAM 019 2019 Inactive Ventolin HFA 90 mcg/actuation aerosol inhaler RxNorm: 814108 2 Puff(s) INH QID 019 2019 Inactive Please do not fill early. Please do not auto refill. This refill negates all other refills of this medication True Metrix Glucose Test Strip RxNorm: 1 Test Strips Miscellaneous QAM 019 2019 Inactive 100/container atorvastatin 40 mg tablet RxNorm: 841011 1 Tablet(s) Oral every day 019 2019 Inactive buspirone 7.5 mg tablet RxNorm: 980485 1 Tablet(s) PO BID 019 2020 Inactive This refill negates all other refills of this medication hydrochlorothiazide 12.5 mg tablet RxNorm: 430009 1 Tablet(s) PO QAM 019 2019 Inactive levmetamfetamine 50 mg nasal inhaler RxNorm: 1 Unit(s) NASAL Q3-4H Do not use more than every 3 hours or 8 times/24hours 019 2021 Inactive Please do not auto refill. This refill negates all other refills of this medication Ventolin HFA 90 mcg/actuation aerosol inhaler RxNorm: 910545 2 Puff(s) INH QID 019 2018 Inactive Please do not fill early. Please do not auto refill. This refill negates all other refills of this medication Singulair 10 mg tablet RxNorm: 290548 1 Tablet(s) PO daily 019 2019 Inactive This refill negates all other refills of this medication cetirizine 10 mg tablet RxNorm: 9264365 1 Tablet(s) PO daily 019 2019 Inactive This refill negates all other refills of this medication. Please do not auto refill levothyroxine 50 mcg tablet RxNorm: 399845 1 Tablet(s) PO daily 019 2019 Inactive This refill negates all other refills of this medication diclofenac sodium 75 mg tablet,delayed release RxNorm: 918686 1 Tablet(s) PO BID 019 2019 Inactive This refill negates all other refills of this medication ranitidine 150 mg tablet RxNorm: 811367 1 Tablet(s) PO BID 019 2018 Inactive This refill negates all other refills of this medication Calcium 600-D3 Plus (mag-zinc) 600 mg calcium-800 unit-50 mg tablet RxNorm: 1 Tablet(s) PO daily take an additonal tablet for itching. 2018 Inactive This refill negates all other refills of this medication albuterol sulfate 2.5 mg/3 mL (0.083 %) solution for nebulization RxNorm: 123630 1 Vial INH QID 2018 Inactive 60/box. This refill negates all other refills of this medication. Please do not fill early. Please do not auto refill. lisinopril 2.5 mg tablet RxNorm: 384913 1 Tablet(s) PO daily 019 2019 Inactive gabapentin 300 mg capsule RxNorm: 583231 1 Capsule(s) PO TID 019 2019 Inactive atorvastatin 20 mg tablet RxNorm: 494098 1 Tablet(s) PO QHS 2018 Inactive This refill negates all other refills of this medication TRUEplus Lancets 30 gauge RxNorm: 1 Lancets Miscellaneous QAM 019 2018 Inactive 100/box gabapentin 300 mg capsule RxNorm: 686042 1 Capsule(s) PO TID 019 2018 Inactive Flintstones Complete (iron) 18 mg iron chewable tablet RxNorm: 1 Tablet(s) PO daily 019 2021 Inactive This refill negates all other refills of this medication gabapentin 300 mg capsule RxNorm: 667491 1 Capsule(s) PO TID as needed 019 2018 Inactive True Metrix Glucose Test Strip RxNorm: 1 Test Strips Miscellaneous QAM 2018 Inactive 100/container Alcohol Prep Pads RxNorm: 611724 1 Patch TOP QAM 019 2018 Inactive TRUEplus Lancets 30 gauge RxNorm: 1 Lancets Miscellaneous QAM 019 2018 Inactive 100/box lisinopril 2.5 mg tablet RxNorm: 388586 1 Tablet(s) PO daily 019 2018 Inactive ranitidine 150 mg tablet RxNorm: 607128 1 Tablet(s) PO BID 2018 Inactive This refill negates all other refills of this medication albuterol sulfate 2.5 mg/3 mL (0.083 %) solution for nebulization RxNorm: 351927 1 Vial INH QID 019 2018 Inactive [...] this medication gabapentin 300 mg capsule RxNorm: 489703 1 Capsule(s) PO TID as needed 019 2018 Inactive atorvastatin 20 mg tablet RxNorm: 190292 1 Tablet(s) PO QHS 019 2018 Inactive This refill negates all other refills of this medication trazodone 50 mg tablet RxNorm: 312682 1 Tablet(s) PO QHS 019 2018 Inactive This refill negates all other refills of this medication Ventolin HFA 90 mcg/actuation aerosol inhaler RxNorm: 234344 2 Puff(s) INH QID 019 2018 Inactive Please do not fill early. Please do not auto refill. This refill negates all other refills of this medication Calcium 600-D3 Plus 600 mg calcium-800 unit-50 mg tablet RxNorm: 1 Tablet(s) PO daily take an additonal tablet for itching. 019 2018 Inactive This refill negates all other refills of this medication Singulair 10 mg tablet RxNorm: 915848 1 Tablet(s) PO daily 019 2018 Inactive This refill negates all other refills of this medication buspirone 7.5 mg tablet RxNorm: 310152 1 Tablet(s) PO BID 019 2018 Inactive This refill negates all other refills of this medication diclofenac sodium 75 mg tablet,delayed release RxNorm: 151192 1 Tablet(s) PO BID 019 2018 Inactive This refill negates all other refills of this medication hydrochlorothiazide 12.5 mg tablet RxNorm: 289573 1 Tablet(s) PO QAM 019 2018 Inactive metoprolol succinate ER 50 mg tablet,extended release 24 hr RxNorm: 607015 1 Tablet(s) PO daily 019 2018 Inactive This refill negates all other refills of this medication levothyroxine 50 mcg tablet RxNorm: 671371 1 Tablet(s) PO daily 019 2018 Inactive This refill negates all other refills of this medication cetirizine 10 mg tablet RxNorm: 6199984 1 Tablet(s) PO daily 019 2018 Inactive This refill negates all other refills of this medication. Please do not auto refill Flintstones Complete (iron) 18 mg iron chewable tablet RxNorm: 1 Tablet(s) PO daily 019 2018 Inactive This refill negates all other refills of this medication buspirone 7.5 mg tablet RxNorm: 056792 1 Tablet(s) PO BID 2018 Inactive cetirizine 10 mg tablet RxNorm: 2772302 1 Tablet(s) PO daily 2018 Inactive Guaiasorb DM 10 mg-100 mg/5 mL oral liquid RxNorm: 174136 10 Milliliter(s) PO As needed every 4 hr 2018 Inactive Vicks Vaporub 4.7 %-1.2 %-2.6 % topical ointment RxNorm: 8250028 1 Application TOP TID 2018 Inactive levmetamfetamine 50 mg nasal inhaler RxNorm: 1 Unit(s) NASAL Q3-4H 2017 Inactive sertraline 50 mg tablet RxNorm: 690330 1 Tablet(s) PO daily 2018 Inactive Please note dose trazodone 50 mg tablet RxNorm: 828584 1 Tablet(s) PO QHS 2018 Inactive sertraline 50 mg tablet RxNorm: 712561 1 Tablet(s) PO daily 2017 Inactive amoxicillin 500 mg tablet RxNorm: 492227 1 Tablet(s) PO Q12H 2017 Inactive albuterol sulfate 2.5 mg/3 mL (0.083 %) solution for nebulization RxNorm: 136358 1 Vial INH QID 2018 Inactive 60/box. Please do not fill early. Please do not auto refill. Prozac 10 mg capsule RxNorm: 435303 1 Capsule(s) PO daily 2017 Inactive buspirone 7.5 mg tablet RxNorm: 906348 1 Tablet(s) PO BID 2018 Inactive gabapentin 300 mg capsule RxNorm: 871837 1 Capsule(s) PO TID as needed 2018 Inactive hydrochlorothiazide 12.5 mg tablet RxNorm: 405151 1 Tablet(s) PO QAM 018 2018 Inactive ranitidine 150 mg tablet RxNorm: 157762 1 Tablet(s) PO BID 018 2018 Inactive Macrobid 100 mg capsule RxNorm: 185743 1 Capsule(s) PO Q12H 018 2017 Inactive Singulair 10 mg tablet RxNorm: 254123 1 Tablet(s) PO daily 018 2018 Inactive Ventolin HFA 90 mcg/actuation aerosol inhaler RxNorm: 2827944 2 Puff(s) INH QID 018 2018 Inactive Singulair 10 mg tablet RxNorm: 985641 1 Tablet(s) PO daily 018 2017 Inactive buspirone 7.5 mg tablet RxNorm: 270777 1 Tablet(s) PO BID 018 2017 Inactive Prozac 10 mg capsule RxNorm: 815509 1 Capsule(s) PO daily 018 2017 Inactive diclofenac sodium 75 mg tablet,delayed release RxNorm: 729884 1 Tablet(s) PO BID 018 2017 Inactive lisinopril 2.5 mg tablet RxNorm: 752136 1 Tablet(s) PO daily 018 2017 Inactive Neilmed Pediatric Sinus Rinse Refill packet RxNorm: 1 Unit Dose NASAL PRN 018 2021 Inactive metoprolol succinate ER 50 mg tablet,extended release 24 hr RxNorm: 770352 1 Tablet(s) PO daily 018 2017 Inactive levothyroxine 50 mcg tablet RxNorm: 660127 1 Tablet(s) PO daily 018 2017 Inactive TRUEplus Lancets 30 gauge RxNorm: 1 Lancets Miscellaneous QAM 018 2017 Inactive 100/box Ventolin HFA 90 mcg/actuation aerosol inhaler RxNorm: 638279 2 Puff(s) INH QID 018 2017 Inactive Aleve 220 mg capsule RxNorm: 6637908 1 Capsule(s) PO BID 018 2018 Inactive ranitidine 150 mg tablet RxNorm: 261097 1 Tablet(s) PO BID 018 2017 Inactive gabapentin 300 mg capsule RxNorm: 807321 1 Capsule(s) PO TID as needed 2017 Inactive atorvastatin 20 mg tablet RxNorm: 495792 1 Tablet(s) PO QHS 018 2017 Inactive True Metrix Glucose Test Strip RxNorm: 1 Test Strips Miscellaneous QAM 2017 Inactive 50/container Calcium 600-D3 Plus 600 mg calcium-800 unit-50 mg tablet RxNorm: 1 Tablet(s) PO daily take an additonal tablet for itching. 018 2017 Inactive hydrochlorothiazide 12.5 mg tablet RxNorm: 508766 1 Tablet(s) PO QAM 018 2017 Inactive Flintstones Complete (iron) 18 mg iron chewable tablet RxNorm: 1 Tablet(s) PO daily 018 2017 Inactive True Metrix Glucose Meter RxNorm: miscellaneous 019 2018 Inactive sertraline 50 mg tablet RxNorm: 019355 1 Tablet(s) PO daily 020 2019 Inactive loperamide 2 mg tablet RxNorm: 735186 oral 019 2018 Inactive d-mannose oral powder RxNorm: PO 018 2021 Inactive Symbicort 160 mcg-4.5 mcg/actuation HFA aerosol inhaler RxNorm: 7147291 2 Puff(s) INH BID 019 2018 Inactive Medication Administered No Medication Administered data Procedures Procedure Codes Date Patient Health Questionnaire CPT-4: DPHQ Electrocardiogram CPT-4: 74316 06/24/2023 Urinalysis, dip stick CPT-4: 15082 05/04/2023 [place] Assessment CPT-4: DSWA 01/02 Fall Risk Assessment CPT-4: DFRA 01/27/2023 Hypertension CPT-4: HTN 01/27/2023 Patient Health Questionnaire CPT-4: DPHQ Pain Screening CPT-4: PAS 2022 Tobacco Assessment/Screening CPT-4: TCA Hypertension CPT-4: HTN 08/17/2022 [place] Assessment CPT-4: DSWA 04/02 Patient Health [...] CPT-4: VACP Fall Risk Assessment SNOMED CT: 28451606 4 CPT-4: DFRA01/13/2021[place] Fany AssessmentCPT-4: DSWA12/17/2020Urinalysis, dip stickCPT-4: 310086109/24/2020Patient Health QuestionnaireCPT-4: DPHQ 08/19/2020ElectrocardiogramCPT-4: 110916005/14/2020Tobacco Assessment/Screening CPT-4: TCA01/01/2020Fall Risk AssessmentSNOMED CT: 789551920 CPT-4: DFRA01/01/2020Functional AssessmentCPT-4: DFA01/01/2020[place] Fany AssessmentCPT-4: DSWA11/28/2019Patient Health QuestionnaireCPT-4: DPHQ11/28/2019 [place] AssessmentCPT-4: DSWA10/17/2019HypertensionCPT-4: HTN10/17/[address]: 189189272 CPT-4: DFRA09/19/2019Functional AssessmentCPT-4: DFA111/20/2018Urinalysis, dip stickCPT-4: 1575819Tobacco Assessment/ScreeningCPT-4: TCA05/24/2019 Patient Health QuestionnaireCPT-4: DPHQ05/24/2019AHA/REBECCA Classification AssessmentCPT-4: DAHA04/25/2019Controlled Substance ReportCPT-4: CTRSU04/25/2019 Urinalysis, dip stickCPT-4: 6106780Urinalysis, dip stickCPT-4: 27075 03/28/20192744D3L-ZuckgvlenpzfhkoVYL-0: 18661YsnnkgrK5Z-EjygqccuvebuswaSHI-3: 44204 UlenfrmH9U-WcdzkzczhaqqzvyZJQ-8: 41778FcacovhF7L-GilgksrhpwuitjiYDN-2: 18128 VcjepvqA5E-CxpvspdadbkznrwPXI-6: 01542QnapzsbP0J-UgpprwwcujrcktpVKG-7: 02763 GyiokhbO5V-XyzoudyxgchtnacRLU-2: 09381GerhgvkQ5K-HvpleziexvvegfmLBZ-3: 15955 WwxiosaR1D-HdafavjdhtbqvhsZLC-2: 34689HorqkiqD8H-XelejghopbztpewXLY-1: 93510 VyyjlavR3F-DtrlxrljfvnaldhPMK-9: 09497KfysawxP9S-CztzuchdajxmvepOVS-9: [address]: 040472401 CPT-4: Y97TynuojdV6R-HmbogtqozjehignAAL-4: 39928Pwaxsvd Reason For Visit No Reason For Visit data Plan of Care Planned Activity Notes Codes Status Date Referral: Pending Gynecology Referral Informatio n Referral ProcessedReferral: Pending Pulmonology Referral InformationReferralProcessed Referral: Pending Psychiatry Referral InformationReferralInitiatedReferral: Pending Respiratory Services Referral InformationReferralInitiatedReferral: Pending Ophthalmology Referral InformationReferralInitiatedReferral: [facility] WPtel: [address] [place] USWriter placed a call out to the patient to notify her that it has been recommended that she be seenby a urologist. Patient agreed to be seen, does not have a provider of choice and no transportationissues. Morale Officer faxed referral and clinical notes to [facility] in [place], [place] near the patient's home. Patient to [...] and prefers a provider in the [place] or [place] area. Morale Officer placed a call out to everyone listed in the area and the only location that was able to accept the patient's insurance was [address] [address] and spoke with Maylin. Maylin asked that the patient's referral, face sheet and visit notes be faxed to . Morale Officer faxed over requested documents. Patient appointment confirmation letter generated and mailed to her home address. Patient to call to schedule an appointment.ProcessedReferral: [facility] WPtel: [address] [place] [address] [place], [place] [id number] USPatient notified that it has been advised that she be seen by Neurology. Patient agreed to be seen and prefers to be seen by a provider in the [place], [place] area. Patient denies any concerns with transportation, and prefers to schedule her own appointment. Morale Officer [facility] [...]
--- OUTSIDE RECORDS SUMMARY | 2024-01-03 23:29 | XMS_ITS | CCD ---
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 Name Role Phone Anna Culver NP Primary Care Provider Unav ailable Unavailable Chronic Care Management Unavaila ble Summary Purpose DataExchange Insurance Providers Payer name Policy type / Coverage type Covered democrat ID Effective Begin Date Effective End Date SUKI MAYO [id number] Unknown Unknown Family history Mother Diagnosis Age [...] 05/31/2018 Education level Unknown Some High School 10th05/31/20183554TydxshtynfWqbvgiwGistdilrxm71/29/2018Tobacco historySNOMED CT: [id number] never smoked or chewed lctmbfl3605/31/2018Alcohol historySNOMED CT: 659460489Svpwj drinks nwhtqea0605/31/2018Has the patient ever used illegal drugs? UnknownHas never used illegal drugs05/31/2018DNR Order/ Advanced Directive UnknownFull Code05/31/2018 Allergies, Adverse Reactions, Alerts Substance Reaction Codes Entered Date Inactivated Date Status OxyContin itch, RxNorm: 916014 01/13/2021 No Inactive Da te Active *No known food allergies Iclfayo5709/06/2018No Inactive DateActiveMethylprednisolonehivesRxNorm: 6902 09/06/2018No Inactive DateActive Problems Condition Codes Effective Dates Condition St atus Adult BMI 50.0-59.9 kg/sq m ICD-10: Z68. 43 ICD-9: V85.4308/ActiveHypertensive heart disease without heart failure ICD-10: I11.9 ICD-9: 402.9003/ctiveMajor depression, recurrentICD-10: F33.9 ICD-9: 296.3009/ctiveType 2 diabetes mellitus with peripheral neuropathy ICD-10: E11.42 ICD-9: 250.6002/ActiveImpetigoICD-10: L01.00 ICD-9: 53006/ctiveType 2 diabetes mellitus with hyperglycemia, without long-term current use of insulinICD-10: E11.65 ICD-9: 250.0011/ctiveUpper respiratory infectionICD-10: J06.9 ICD-9: 465.912/ctiveEncounter for immunizationICD-10: Z23 ICD-9: V04.8111/ctiveRight foot painICD-10: M79.671 ICD-9: 729.511/ctiveAllergic rhinitisICD-10: J30.9 ICD-9: 477.903/ctiveHyperlipidemia, mixedICD-10: E78.2 ICD-9: [...] 784.001InactiveOther penitentiary (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ICD-10: Z79.899 ICD-9: V58.6907/InactiveType 2 [...] Fill Instructions montelukast 10 mg tablet RxNorm: 908988 Take 1 Tablet(s) Oral every day 024 2023 Active gabapentin 300 mg capsule RxNorm: 553015 Take 1 Capsule(s) Oral three times a day 024 2023 Active hydrocortisone 2.5 % topical cream RxNorm: 878816 Apply Application Topical two times a day a thin layer to the affected area(s) No Stop Date Active amoxicillin 500 mg tablet RxNorm: 532955 Take 1 Tablet(s) Oral two times a day 024 2023 Inactive omeprazole 40 mg capsule,delayed release RxNorm: 345984 Take 1 Capsule(s) Oral HS 024 2023 Active Januvia 100 mg tablet RxNorm: 574378 Take 1 Tablet(s) Oral every day 023 2023 Active amoxicillin 250 mg capsule RxNorm: 103463 Take 1 Capsule(s) Oral three times a day 023 2022 Inactive amoxicillin 500 mg tablet RxNorm: 153568 Take 1 Tablet(s) Oral three times a day 023 2022 Inactive Ozempic 1 mg/dose (4 mg/3 mL) subcutaneous pen injector RxNorm: 5086812 INJECT 1 UNITS DOSE SUBCUTANEOUSLY ON TUESDAY OF EACH WEEK 2023 Active MED IS ON B/O omeprazole 40 mg capsule,delayed release RxNorm: 981676 Take 1 Capsule(s) Oral HS 023 2022 Inactive Januvia 50 mg tablet RxNorm: 710171 Take 1 Tablet(s) Oral two times a day 023 2023 Inactive famotidine 20 mg tablet RxNorm: 777721 TAKE 1 TABLET BY MOUTH EACH MORNING 023 2023 Active Januvia 25 mg tablet RxNorm: 704150 Take 1 Tablet(s) Oral every day 023 2022 Inactive Ozempic 1 mg/dose (4 mg/3 mL) subcutaneous pen injector RxNorm: 3079011 INJECT 1 UNITS DOSE SUBCUTANEOUSLY ON TUESDAY OF EACH WEEK 023 2022 Inactive cetirizine 10 mg tablet RxNorm: 1714217 TAKE (1) TABLET BY MOUTH DAILY 023 2023 Inactive amoxicillin 500 mg tablet RxNorm: 683774 Take 1 Tablet(s) Oral two times a day 023 2022 Inactive omeprazole 40 mg capsule,delayed release RxNorm: 967575 Take 1 Capsule(s) Oral at bed time 023 2022 Inactive Easy Touch Alcohol Prep Pads RxNorm: 359931 USE EACH MORNING 023 2024 Active montelukast 10 mg tablet RxNorm: 240568 Take 1 Tablet(s) Oral every day 023 2022 Inactive gabapentin 300 mg capsule RxNorm: 613792 Take 1 Capsule(s) Oral three times a day 023 2022 Inactive metformin ER 500 mg 24 hr tablet,extended release RxNorm: 6430852 Take 1 Tablet(s) Oral every day with the evening meal 023 2022 Inactive famotidine 20 mg tablet RxNorm: 215064 Take 1 Tablet(s) Oral every morning 023 2022 Inactive levothyroxine 50 mcg tablet RxNorm: 653773 Take 1 Tablet(s) Oral every day 023 2023 [facility] Requested hydrochlorothiazide 25 mg tablet RxNorm: 215487 Take 1 Tablet(s) Oral every day 023 2023 [facility] Requested atorvastatin 20 mg tablet RxNorm: 618328 Take 1 Tablet(s) Oral every night at bedtime 023 2023 Active Macrobid 100 mg capsule RxNorm: 026520 1 Capsule(s) Oral every 12 hours with food 023 2022 Inactive omeprazole 40 mg capsule,delayed release RxNorm: 559342 Take 1 Capsule(s) Oral every night at bedtime 023 2022 Inactive trazodone 50 mg tablet RxNorm: 027990 Administer 1 Tablet(s) Oral every night at bedtime 023 No Stop Date Active cholecalciferol (vitamin D3) 50 mcg (2,000 unit) tablet RxNorm: 404588 Take 1 Tablet(s) Oral every day 023 2023 Active Ozempic 1 mg/dose (4 mg/3 mL) subcutaneous pen injector RxNorm: 7614195 USE 1 UNIT DOSE SUBCUTANEOUSLY ON TUE OF EACH WEEK 023 2022 Inactive lisinopril 2.5 mg tablet RxNorm: 367120 Take 1 Tablet(s) Oral every day 023 2022 [facility] Requested Ozempic 1 mg/dose (4 mg/3 mL) subcutaneous pen injector RxNorm: 5693807 USE 1 UNIT DOSE SUBCUTANEOUSLY ON TUE OF EACH WEEK 023 2022 Inactive omeprazole 40 mg capsule,delayed release RxNorm: 595268 Take 1 Capsule(s) Oral every night at bedtime 023 2022 Inactive gabapentin 300 mg capsule RxNorm: 233919 Take 1 Capsule(s) Oral three times a day 023 2022 Inactive montelukast 10 mg tablet RxNorm: 929323 Take 1 Tablet(s) Oral every day 023 2022 Inactive omeprazole 20 mg capsule,delayed release RxNorm: 662333 Take 1 Capsule(s) Oral every evening 022 2022 Inactive Alcohol Prep Pads RxNorm: 683037 USE EACH MORNING 022 2021 Inactive E11.42 clotrimazole 1 % topical cream RxNorm: 732862 Apply 1 Application Topical two times a day as needed apply to affected area(s) twice daily until healed 2021 Inactive Victoza 2-Sebastián 0.6 mg/0.1 mL (18 mg/3 mL) subcutaneous pen injector RxNorm: 188258 Inject 0.6-1.8 Milligram(s) Subcutaneous once a week Inject 0.6mg/0.1ml week one, 1.2mg/0.2ml week two, 1.8/0.3ml weekly thereafter 022 2021 Inactive ibuprofen 800 mg tablet RxNorm: 755151 Take 1 Tablet(s) Oral Q8H as needed for pain take with food No Stop Date Active Ozempic 1 mg/dose (4 mg/3 mL) subcutaneous pen injector RxNorm: 8447093 Take 1 Unit Dose Subcutaneous QWeek Tuesday 022 2021 Inactive lisinopril 2.5 mg tablet RxNorm: 036043 Take 1 Tablet(s) Oral every day 022 2021 Inactive lisinopril 2.5 mg tablet RxNorm: 372291 Take 1 Tablet(s) Oral every day 022 2022 Inactive hydrochlorothiazide 25 mg tablet RxNorm: 965266 Take 1 Tablet(s) Oral every day 022 2021 Inactive Ozempic 1 mg/dose (4 mg/3 mL) subcutaneous pen injector RxNorm: 5545028 Take 1 Unit Dose Subcutaneous QWeek 022 2021 Inactive famotidine 20 mg tablet RxNorm: 946438 Take 1 Tablet(s) Oral every morning 022 2021 Inactive levothyroxine 50 mcg tablet RxNorm: 287716 Take 1 Tablet(s) Oral every day 022 2021 Inactive atorvastatin 20 mg tablet RxNorm: 130683 Take 1 Tablet(s) Oral every night at bedtime 2021 Inactive Cleocin T 1 % lotion RxNorm: 058582 Take 2 Gram(s) Topical every day 022 2021 Inactive Cleocin T 1 % lotion RxNorm: 067691 Take 2 Gram(s) Topical every day 022 2021 Inactive Ozempic 1 mg/dose (4 mg/3 mL) subcutaneous pen injector RxNorm: 9033896 Take 1 Unit Dose Subcutaneous QWeek 2021 Inactive Ozempic 0.25 mg or 0.5 mg (2 mg/1.5 mL) subcutaneous pen injector RxNorm: 7152328 INJECT 0.5 MGS SUBCUTANEOUSLY EVERY WEEK 022 2021 Inactive omeprazole 20 mg capsule,delayed release RxNorm: 023631 Take 1 Capsule(s) Oral every evening 2021 Inactive levothyroxine 50 mcg tablet RxNorm: 989839 Take 1 Tablet(s) Oral every day 2021 Inactive atorvastatin 20 mg tablet RxNorm: 996494 Take 1 Tablet(s) Oral every night at bedtime 2021 Inactive This refill negates all other refills of this medication lisinopril 2.5 mg tablet RxNorm: 654061 Take 1 Tablet(s) Oral every day 2021 Inactive gabapentin 300 mg capsule RxNorm: 506945 Take 1 Capsule(s) Oral three times a day 022 2021 Inactive montelukast 10 mg tablet RxNorm: 170032 Take 1 Tablet(s) Oral every day 022 2021 Inactive Myrbetriq 50 mg tablet,extended release RxNorm: 6197593 1 Tablet(s) Oral every day No Stop Date Active cholecalciferol (vitamin D3) 50 mcg (2,000 unit) tablet RxNorm: 762778 Take 1 Tablet(s) Oral every day 2022 Inactive Ozempic 0.25 mg or 0.5 mg (2 mg/1.5 mL) subcutaneous pen injector RxNorm: 4074731 inject 0.5 milligrams subcutaneously every week 2021 Inactive Ozempic 0.25 mg or 0.5 mg (2 mg/1.5 mL) subcutaneous pen injector RxNorm: 1397004 Take 0.5 Capsule(s) Injection once a week 2021 Inactive omeprazole 20 mg capsule,delayed release RxNorm: 020550 Take 1 Capsule(s) Oral every evening 2020 Inactive Ozempic 0.25 mg or 0.5 mg (2 mg/1.5 mL) subcutaneous pen injector RxNorm: 4674154 Take 0.25 Milligram(s) Subcutaneous once a week 2021 Inactive Easy Touch Alcohol Prep Pads RxNorm: 439010 USE DIRECTED EACH MORNING 2021 Inactive Probiotic 10 billion cell capsule RxNorm: 4589217 Take 1 Capsule(s) Oral every day 2021 Inactive levothyroxine 50 mcg tablet RxNorm: 105798 Take 1 Tablet(s) Oral every day 2020 Inactive Acid Tortilla Maker (famotidine) 20 mg tablet RxNorm: 821195 Take 1 Tablet(s) Oral every morning 2020 Inactive Heartburn Relief (famotidine) 10 mg tablet RxNorm: 973403 Take 1 Tablet(s) Oral QAM 2020 Inactive levothyroxine 50 mcg tablet RxNorm: 899971 Take 1 Tablet(s) Oral QD 2020 Inactive Singulair 10 mg tablet RxNorm: 738845 TAKE (1) TABLET BY MOUTH DAILY 021 2020 Inactive metformin 1,000 mg tablet RxNorm: 411277 1 Tablet(s) Oral two times a day 021 2021 Inactive lisinopril 2.5 mg tablet RxNorm: 592305 Take 1 Tablet(s) Oral every day 021 2020 Inactive hydrochlorothiazide 25 mg tablet RxNorm: 112941 Take 1 Tablet(s) Oral every day 021 2020 Inactive ondansetron 4 mg disintegrating tablet RxNorm: 136586 1 Tablet(s) Oral two times a day 2020 Inactive Sudafed 12 Hour 120 mg tablet,extended release RxNorm: 5519295 TAKE 1 TABLET BY MOUTH EVERY 12 HOURS NEEDED 2021 Inactive Heartburn Relief (famotidine) 10 mg tablet RxNorm: 123401 Take 1 Tablet(s) Oral every morning 021 2020 Inactive omeprazole 20 mg capsule,delayed release RxNorm: 242968 1 Capsule(s) Oral every evening 021 2020 Inactive sertraline 100 mg tablet RxNorm: 114772 2 Tablet(s) Oral every day 021 2020 Inactive levothyroxine 50 mcg tablet RxNorm: 421094 TAKE (1) TABLET BY MOUTH DAILY 021 2020 Inactive metformin 500 mg tablet RxNorm: 261045 1 Tablet(s) Oral two times a day take with 500mg to equal 1000mg 021 2020 Inactive gabapentin 300 mg capsule RxNorm: 308920 TAKE 1 CAPSULE BY MOUTH THREE TIMES A DAY 021 2020 Inactive lisinopril 2.5 mg tablet RxNorm: 154017 TAKE 1 TABLET BY MOUTH DAILY 021 2020 Inactive gabapentin 300 mg capsule RxNorm: 102468 TAKE 1 CAPSULE BY MOUTH THREE TIMES A DAY 2020 Inactive Singulair 10 mg tablet RxNorm: 205936 TAKE (1) TABLET BY MOUTH DAILY 021 2020 Inactive metformin 1,000 mg tablet RxNorm: 195247 1 Tablet(s) Oral two times a day 021 2020 Inactive atorvastatin 40 mg tablet RxNorm: 977836 1 Tablet(s) Oral every day 021 2020 Inactive omeprazole 20 mg capsule,delayed release RxNorm: 856824 1 Capsule(s) Oral every evening 021 2020 Inactive famotidine 10 mg tablet RxNorm: 569719 1 Tablet(s) Oral every morning 021 2020 Inactive Alcohol Prep Pads RxNorm: 823535 USE EACH MORNING 021 2020 Inactive omeprazole 20 mg capsule,delayed release RxNorm: 956326 1 Capsule(s) Oral two times a day 2021 Inactive omeprazole 20 mg capsule,delayed release RxNorm: 247169 TAKE 1 CAPSULE BY MOUTH EVERY DAY 2021 Inactive Macrobid 100 mg capsule RxNorm: 594547 1 Capsule(s) Oral every 12 hours with food 2020 Inactive omeprazole 20 mg capsule,delayed release RxNorm: 529481 1 Capsule(s) Oral two times a day 2021 Inactive metformin 1,000 mg tablet RxNorm: 153934 1 Tablet(s) Oral two times a day 2020 Inactive start on September 11, 2020 metformin 500 mg tablet RxNorm: 729107 1 Tablet(s) Oral two times a day take with 500mg to equal 1000mg 2019 Inactive gabapentin 300 mg capsule RxNorm: 477732 TAKE 1 CAPSULE BY MOUTH THREE TIMES DAILY 2020 Inactive cetirizine 10 mg tablet RxNorm: 6091701 TAKE (1) TABLET BY MOUTH DAILY 2020 Inactive metformin 500 mg tablet RxNorm: 955802 1 Tablet(s) Oral two times a day 020 2019 Inactive loperamide 2 mg tablet RxNorm: 748349 1 Tablet(s) Oral as needed take one tablet after each loose stool, maximum of 8 tablets in 24 hours 020 2021 Inactive Sudafed 12 Hour 120 mg tablet,extended release RxNorm: 8905117 TAKE 1 TABLET BY MOUTH EVERY 12 HOURS NEEDED 020 2019 Inactive hydrochlorothiazide 25 mg tablet RxNorm: 594513 TAKE (1) TABLET BY MOUTH EVERY DAY 020 2019 Inactive omeprazole 20 mg capsule,delayed release RxNorm: 937747 TAKE 1 CAPSULE BY MOUTH EVERY DAY 020 2020 Inactive metformin 500 mg tablet RxNorm: 576406 1 Tablet(s) Oral every day 020 2019 Inactive True Metrix Glucose Test Strip RxNorm: 1 Test Strips Miscellaneous two times a day as needed No Stop Date Active metformin 500 mg tablet RxNorm: 693147 1 Tablet(s) Oral every day 020 2019 Inactive diclofenac sodium 75 mg tablet,delayed release RxNorm: 698005 1 Tablet(s) PO BID 2021 Inactive This refill negates all other refills of this medication Sudafed 12 Hour 120 mg tablet,extended release RxNorm: 0853753 TAKE 1 TABLET BY MOUTH EVERY 12 HOURS NEEDED 020 2019 Inactive True Metrix Glucose Test Strip RxNorm: 1 Test Strips Miscellaneous every morning 020 2019 Inactive 100/container True Metrix Glucose Test Strip RxNorm: 1 Test Strips Miscellaneous QA 020 2019 Inactive 100/container loperamide 2 mg tablet RxNorm: 167399 1 Tablet(s) Oral as needed take one tablet after each loose stool, maximum of 8 tablets in 24 hours 020 2019 Inactive cetirizine 10 mg tablet RxNorm: 7987861 1 Tablet(s) PO daily 2019 Inactive loperamide 2 mg tablet RxNorm: 594164 1 Tablet(s) Oral as needed take one tablet after each loose stool, maximum of 8 tablets in 24 hours 2019 Inactive quetiapine 100 mg tablet RxNorm: 827273 1 Tablet(s) Oral every night at bedtime 2019 Inactive levothyroxine 50 mcg tablet RxNorm: 099422 1 Tablet(s) PO daily 2020 Inactive gabapentin 300 mg capsule RxNorm: 082225 1 Capsule(s) PO TID 2019 Inactive levothyroxine 50 mcg tablet RxNorm: 542290 1 Tablet(s) PO daily 2019 Inactive lisinopril 2.5 mg tablet RxNorm: 076987 1 Tablet(s) PO daily 2020 Inactive gabapentin 300 mg capsule RxNorm: 251243 1 Capsule(s) PO TID 2019 Inactive cetirizine 10 mg tablet RxNorm: 8687868 1 Tablet(s) PO daily 2019 Inactive Singulair 10 mg tablet RxNorm: 449605 1 Tablet(s) PO daily 2020 Inactive gentamicin 0.3 % eye drops RxNorm: 910029 1 Drop(s) ophthalmic (eye) four times a day 2019 Inactive gentamicin 0.3 % eye drops RxNorm: 425152 1 Drop(s) ophthalmic (eye) four times a day 2019 Inactive gentamicin 0.3 % eye drops RxNorm: 669209 1 Drop(s) ophthalmic (eye) four times a day 2019 Inactive hydrochlorothiazide 25 mg tablet RxNorm: 089852 1 Tablet(s) Oral every day 2019 Inactive Sudafed 12 Hour 120 mg tablet,extended release RxNorm: 3084596 TAKE (1) TABLET BY MOUTH EVERY 12 HOURS NEEDED 2019 Inactive loperamide 2 mg tablet RxNorm: 047409 1 Tablet(s) Oral as needed take one tablet after each loose stool, maximum of 8 tablets in 24 hours 020 2019 Inactive loperamide 2 mg tablet RxNorm: 339878 1 Tablet(s) Oral as needed take one tablet after each loose stool, maximum of 8 tablets in 24 hours 020 2019 Inactive atorvastatin 40 mg tablet RxNorm: 282212 1 Tablet(s) Oral every day 2020 Inactive quetiapine 100 mg tablet RxNorm: 039135 1 Tablet(s) Oral every night at bedtime 2019 Inactive sertraline 100 mg tablet RxNorm: 483465 1 Tablet(s) Oral 2019 Inactive omeprazole 20 mg capsule,delayed release RxNorm: 065674 1 Capsule(s) Oral every day 2019 Inactive amoxicillin 250 mg capsule RxNorm: 210896 1 Capsule(s) Oral three times a day 2019 Inactive multivitamin with iron-mineral tablet RxNorm: 1 Tablet(s) Oral every day 2021 Inactive cetirizine 10 mg tablet RxNorm: 1180763 1 Tablet(s) PO daily 2019 Inactive This refill negates all other refills of this medication. Please do not auto refill Singulair 10 mg tablet RxNorm: 756742 1 Tablet(s) PO daily 2019 Inactive This refill negates all other refills of this medication gabapentin 300 mg capsule RxNorm: 006877 1 Capsule(s) PO TID 2019 Inactive lisinopril 2.5 mg tablet RxNorm: 535129 1 Tablet(s) PO daily 2019 Inactive levothyroxine 50 mcg tablet RxNorm: 033833 1 Tablet(s) PO daily 2019 Inactive This refill negates all other refills of this medication hydrochlorothiazide 25 mg tablet RxNorm: 166360 1 Tablet(s) Oral every day 2019 Inactive fenugreek seed extract 500 mg capsule RxNorm: 1 Capsule(s) Oral three times a day 2021 Inactive Alcohol Prep Pads RxNorm: 770959 1 Patch TOP QAM 2020 Inactive loperamide 2 mg tablet RxNorm: 148762 1 Tablet(s) Oral as needed take one [...] 2019 Inactive hydrochlorothiazide 25 mg tablet RxNorm: 796800 1 Tablet(s) Oral every day 019 2019 Inactive Sudafed 12 Hour 120 mg tablet,extended release RxNorm: 8680220 1 Tablet(s) Oral every 12 hours as needed 019 2018 Inactive omeprazole 20 mg capsule,delayed release RxNorm: 482487 1 Capsule(s) Oral every day 019 2019 Inactive Sudafed 12 Hour 120 mg tablet,extended release RxNorm: 2182743 1 Tablet(s) Oral every 12 hours as needed 019 2018 Inactive pantoprazole 40 mg tablet,delayed release RxNorm: 241734 1 Tablet(s) Oral every day 2018 Inactive discontinue any other H2Blkr. and PPI albuterol sulfate 2.5 mg/3 mL (0.083 %) solution for nebulization RxNorm: 255613 1 Vial Inhalation every four hours as needed as needed for dyspnea 019 2019 Inactive 60/box. This refill negates all other refills of this medication. Please do not fill early. Please do not auto refill. Symbicort 160 mcg-4.5 mcg/actuation HFA aerosol inhaler RxNorm: 2600612 2 Puff(s) INH BID No Stop Date Active Alcohol Prep Pads RxNorm: 886700 1 Patch TOP QAM 019 2019 Inactive Ventolin HFA 90 mcg/actuation aerosol inhaler RxNorm: 642916 2 Puff(s) INH QID 019 2019 Inactive Please do not fill early. Please do not auto refill. This refill negates all other refills of this medication True Metrix Glucose Test Strip RxNorm: 1 Test Strips Miscellaneous QAM 019 2019 Inactive 100/container atorvastatin 40 mg tablet RxNorm: 660555 1 Tablet(s) Oral every day 019 2019 Inactive buspirone 7.5 mg tablet RxNorm: 543535 1 Tablet(s) PO BID 019 2020 Inactive This refill negates all other refills of this medication hydrochlorothiazide 12.5 mg tablet RxNorm: 398876 1 Tablet(s) PO QAM 019 2019 Inactive levmetamfetamine 50 mg nasal inhaler RxNorm: 1 Unit(s) NASAL Q3-4H Do not use more than every 3 hours or 8 times/24hours 019 2021 Inactive Please do not auto refill. This refill negates all other refills of this medication Ventolin HFA 90 mcg/actuation aerosol inhaler RxNorm: 547538 2 Puff(s) INH QID 019 2018 Inactive Please do not fill early. Please do not auto refill. This refill negates all other refills of this medication Singulair 10 mg tablet RxNorm: 073645 1 Tablet(s) PO daily 019 2019 Inactive This refill negates all other refills of this medication cetirizine 10 mg tablet RxNorm: 0273583 1 Tablet(s) PO daily 019 2019 Inactive This refill negates all other refills of this medication. Please do not auto refill levothyroxine 50 mcg tablet RxNorm: 380178 1 Tablet(s) PO daily 019 2019 Inactive This refill negates all other refills of this medication diclofenac sodium 75 mg tablet,delayed release RxNorm: 092920 1 Tablet(s) PO BID 019 2019 Inactive This refill negates all other refills of this medication ranitidine 150 mg tablet RxNorm: 688240 1 Tablet(s) PO BID 019 2018 Inactive This refill negates all other refills of this medication Calcium 600-D3 Plus (mag-zinc) 600 mg calcium-800 unit-50 mg tablet RxNorm: 1 Tablet(s) PO daily take an additonal tablet for itching. 2018 Inactive This refill negates all other refills of this medication albuterol sulfate 2.5 mg/3 mL (0.083 %) solution for nebulization RxNorm: 152687 1 Vial INH QID 2018 Inactive 60/box. This refill negates all other refills of this medication. Please do not fill early. Please do not auto refill. lisinopril 2.5 mg tablet RxNorm: 450751 1 Tablet(s) PO daily 019 2019 Inactive gabapentin 300 mg capsule RxNorm: 799548 1 Capsule(s) PO TID 019 2019 Inactive atorvastatin 20 mg tablet RxNorm: 983277 1 Tablet(s) PO QHS 019 2018 Inactive This refill negates all other refills of this medication TRUEplus Lancets 30 gauge RxNorm: 1 Lancets Miscellaneous QAM 08/27/2018 Inactive 100/box gabapentin 300 mg capsule RxNorm: 641918 1 Capsule(s) PO TID 2018 Inactive [place] Complete (iron) 18 mg iron chewable tablet RxNorm: 1 Tablet(s) PO daily 019 2021 Inactive This refill negates all other refills of this medication gabapentin 300 mg capsule RxNorm: 691018 1 Capsule(s) PO TID as needed 2018 Inactive True Metrix Glucose Test Strip RxNorm: 1 Test Strips Miscellaneous QAM 2018 Inactive 100/container Alcohol Prep Pads RxNorm: 373210 1 Patch TOP QAM 2018 Inactive TRUEplus Lancets 30 gauge RxNorm: 1 Lancets Miscellaneous QAM 2018 Inactive 100/box lisinopril 2.5 mg tablet RxNorm: 151390 1 Tablet(s) PO daily 2018 Inactive ranitidine 150 mg tablet RxNorm: 029282 1 Tablet(s) PO BID 2018 Inactive This refill negates all other refills of this medication albuterol sulfate 2.5 mg/3 mL (0.083 %) solution for nebulization RxNorm: 438650 1 Vial INH QID 2018 Inactive 60/box. [...] this medication gabapentin 300 mg capsule RxNorm: 284386 1 Capsule(s) PO TID as needed 019 2018 Inactive atorvastatin 20 mg tablet RxNorm: 714903 1 Tablet(s) PO QHS 019 2018 Inactive This refill negates all other refills of this medication trazodone 50 mg tablet RxNorm: 509343 1 Tablet(s) PO QHS 019 2018 Inactive This refill negates all other refills of this medication Ventolin HFA 90 mcg/actuation aerosol inhaler RxNorm: 628966 2 Puff(s) INH QID 019 2018 Inactive Please do not fill early. Please do not auto refill. This refill negates all other refills of this medication Calcium 600-D3 Plus 600 mg calcium-800 unit-50 mg tablet RxNorm: 1 Tablet(s) PO daily take an additonal tablet for itching. 019 2018 Inactive This refill negates all other refills of this medication Singulair 10 mg tablet RxNorm: 219813 1 Tablet(s) PO daily 019 2018 Inactive This refill negates all other refills of this medication buspirone 7.5 mg tablet RxNorm: 579390 1 Tablet(s) PO BID 019 2018 Inactive This refill negates all other refills of this medication diclofenac sodium 75 mg tablet,delayed release RxNorm: 966650 1 Tablet(s) PO BID 019 2018 Inactive This refill negates all other refills of this medication hydrochlorothiazide 12.5 mg tablet RxNorm: 515255 1 Tablet(s) PO QAM 019 2018 Inactive metoprolol succinate ER 50 mg tablet,extended release 24 hr RxNorm: 864347 1 Tablet(s) PO daily 019 2018 Inactive This refill negates all other refills of this medication levothyroxine 50 mcg tablet RxNorm: 267606 1 Tablet(s) PO daily 019 2018 Inactive This refill negates all other refills of this medication cetirizine 10 mg tablet RxNorm: 8504063 1 Tablet(s) PO daily 019 2018 Inactive This refill negates all other refills of this medication. Please do not auto refill Flintstones Complete (iron) 18 mg iron chewable tablet RxNorm: 1 Tablet(s) PO daily 2018 Inactive This refill negates all other refills of this medication buspirone 7.5 mg tablet RxNorm: 774166 1 Tablet(s) PO BID 2018 Inactive cetirizine 10 mg tablet RxNorm: 0420115 1 Tablet(s) PO daily 2018 Inactive Guaiasorb DM 10 mg-100 mg/5 mL oral liquid RxNorm: 841302 10 Milliliter(s) PO As needed every 4 hr 2018 Inactive Vicks Vaporub 4.7 %-1.2 %-2.6 % topical ointment RxNorm: 3311306 1 Application TOP TID 2018 Inactive levmetamfetamine 50 mg nasal inhaler RxNorm: 1 Unit(s) NASAL Q3-4H 2017 Inactive sertraline 50 mg tablet RxNorm: 440731 1 Tablet(s) PO daily 2018 Inactive Please note dose trazodone 50 mg tablet RxNorm: 162960 1 Tablet(s) PO QHS 018 2018 Inactive sertraline 50 mg tablet RxNorm: 968801 1 Tablet(s) PO daily 2017 Inactive amoxicillin 500 mg tablet RxNorm: 534857 1 Tablet(s) PO Q12H 2017 Inactive albuterol sulfate 2.5 mg/3 mL (0.083 %) solution for nebulization RxNorm: 119948 1 Vial INH QID 2018 Inactive 60/box. Please do not fill early. Please do not auto refill. Prozac 10 mg capsule RxNorm: 295690 1 Capsule(s) PO daily 2017 Inactive buspirone 7.5 mg tablet RxNorm: 842184 1 Tablet(s) PO BID 10/ 2019 Inactive gabapentin 300 mg capsule RxNorm: 689062 1 Capsule(s) PO TID as needed 2018 Inactive hydrochlorothiazide 12.5 mg tablet RxNorm: 773989 1 Tablet(s) PO QAM 018 2018 Inactive ranitidine 150 mg tablet RxNorm: 288234 1 Tablet(s) PO BID 018 2018 Inactive Macrobid 100 mg capsule RxNorm: 270196 1 Capsule(s) PO Q12H 018 2017 Inactive Singulair 10 mg tablet RxNorm: 682642 1 Tablet(s) PO daily 018 2018 Inactive Ventolin HFA 90 mcg/actuation aerosol inhaler RxNorm: 2127109 2 Puff(s) INH QID 018 2018 Inactive Singulair 10 mg tablet RxNorm: 116226 1 Tablet(s) PO daily 018 2017 Inactive buspirone 7.5 mg tablet RxNorm: 044269 1 Tablet(s) PO BID 018 2017 Inactive Prozac 10 mg capsule RxNorm: 605503 1 Capsule(s) PO daily 018 2017 Inactive diclofenac sodium 75 mg tablet,delayed release RxNorm: 270672 1 Tablet(s) PO BID 018 2017 Inactive lisinopril 2.5 mg tablet RxNorm: 058900 1 Tablet(s) PO daily 018 2017 Inactive Neilmed Pediatric Sinus Rinse Refill packet RxNorm: 1 Unit Dose NASAL PRN 018 2021 Inactive metoprolol succinate ER 50 mg tablet,extended release 24 hr RxNorm: 326134 1 Tablet(s) PO daily 018 2017 Inactive levothyroxine 50 mcg tablet RxNorm: 627375 1 Tablet(s) PO daily 018 2017 Inactive TRUEplus Lancets 30 gauge RxNorm: 1 Lancets Miscellaneous QAM 018 2017 Inactive 100/box Ventolin HFA 90 mcg/actuation aerosol inhaler RxNorm: 417389 2 Puff(s) INH QID 018 2017 Inactive Aleve 220 mg capsule RxNorm: 3437084 1 Capsule(s) PO BID 018 2018 Inactive ranitidine 150 mg tablet RxNorm: 123331 1 Tablet(s) PO BID 018 2017 Inactive gabapentin 300 mg capsule RxNorm: 826994 1 Capsule(s) PO TID as needed 018 2017 Inactive atorvastatin 20 mg tablet RxNorm: 876637 1 Tablet(s) PO QHS 018 2017 Inactive True Metrix Glucose Test Strip RxNorm: 1 Test Strips Miscellaneous QAM 018 2017 Inactive 50/container Calcium 600-D3 Plus 600 mg calcium-800 unit-50 mg tablet RxNorm: 1 Tablet(s) PO daily take an additonal tablet for itching. 018 2017 Inactive hydrochlorothiazide 12.5 mg tablet RxNorm: 462022 1 Tablet(s) PO QAM 018 2017 Inactive Flintstones Complete (iron) 18 mg iron chewable tablet RxNorm: 1 Tablet(s) PO daily 018 2017 Inactive True Metrix Glucose Meter RxNorm: miscellaneous 019 2018 Inactive sertraline 50 mg tablet RxNorm: 616654 1 Tablet(s) PO daily 020 2019 Inactive loperamide 2 mg tablet RxNorm: 619092 oral 019 2018 Inactive d-mannose oral powder RxNorm: PO 018 2021 Inactive Symbicort 160 mcg-4.5 mcg/actuation HFA aerosol inhaler RxNorm: 5458983 2 Puff(s) INH BID 019 2018 Inactive Medication Administered No Medication Administered data Procedures Procedure Codes Date Patient Health Questionnaire CPT-4: DPHQ 04/2024 Patient Health Questionnaire Little interest or pleasure in doing things?/0 = Not at all, Feeling down, depressed or hopeless?/2= More than half the days, Trouble falling or staying asleep, or sleeping too much?/1 = Several days, Feeling tired or having little energy?/0 = [...] slowly that other people noticed? Or the opposite?/1 = Several days, Thoughts that you would be better off , or of hurting yourself in some way?/0 = Not at all, Score:/0-4 = Negative for depression- NO PLAN NEEDEDCPT-4: DTHWDfkpuqz44/07/2024 Patient Health QuestionnaireCPT-4: DPHQ06/24/2023ElectrocardiogramCPT-4: 69017 06/24/2023Urinalysis, dip stickCPT-4: 203654905/04/2023Semmes Fany Assessment CPT-4: DSWA01/27/2023Fall Risk AssessmentCPT-4: DFRA01/27/2023HypertensionCPT-4: HTN01/27/2023atient Health QuestionnaireCPT-4: DPHQ11/23/2022ain Screening CPT-4: PAS2022Tobacco Assessment/ScreeningCPT-4: TCA2022Hypertension CPT-4: HTN08/17/2022emmes Fany AssessmentCPT-4: DSWA04/19/2022atient Health QuestionnaireCPT-4: DPHQ04/19/2022nnual Wellness Visit (Subsequent Visit)CPT-4: B900760atient Health QuestionnaireCPT-4: DPHQ10/07/2021 Frailty ScreeningCPT-4: SFD05/20/2021HypertensionCPT-4: HTN04/01/2021Tobacco Assessment/ScreeningCPT-4: TCA03/13/2021atient Health QuestionnaireCPT-4: DPHQ 03/13/2021Mini Mental State ExamCPT-4: DMMA01/29/2021nnual Wellness Visit (Subsequent Visit)CPT-4: L298667dvanced Care PlanningCPT-4: VACP 01/13/2021Fall Risk AssessmentSNOMED CT: 162647556 CPT-4: DFRA01/13/2021emmes Fany AssessmentCPT-4: DSWA12/17/2020Urinalysis, dip stickCPT-4: 918512609/24/2020Patient Health QuestionnaireCPT-4: DPHQ 08/19/2020ElectrocardiogramCPT-4: 533703905/14/2020Tobacco Assessment/Screening CPT-4: TCA01/01/2020Fall Risk AssessmentSNOMED CT: 379055756 CPT-4: DFRA01/01/2020Functional AssessmentCPT-4: DFA01/01/2020Semmes Fany AssessmentCPT-4: DSWA11/28/2019Patient Health QuestionnaireCPT-4: DPHQ11/28/2019 [place]al[place] Fany AssessmentCPT-4: DSWA10/17/2019HypertensionCPT-4: HTN10/17/[address]: 048121456 CPT-4: DFRA09/19/2019Functional AssessmentCPT-4: DFA111/20/2018Urinalysis, dip stickCPT-4: 3187678Tobacco Assessment/ScreeningCPT-4: TCA05/24/2019 Patient Health QuestionnaireCPT-4: DPHQ05/24/2019AHA/REBECCA Classification AssessmentCPT-4: DAHA04/25/2019Controlled Substance ReportCPT-4: CTRSU04/25/2019 Urinalysis, dip stickCPT-4: 602271503/28/2019Urinalysis, dip stickCPT-4: 91583 03/28/20196995G5Z-MvugjnltgvvuzfcITC-3: 98837QmhjdisL9C-GzzcdbuycqpuftdEBV-1: 52821 WwvizxsX4Q-EtlvhdttgeeounjVPW-9: 49531QfpkuvxS5J-IntgbpvydodmeigOBY-2: 36210 XsgldqwA4O-FvyhtebwblfgohmDSZ-1: 24996UboiytpI2E-BtnszdlopdadproBLN-3: 82271 LxvozmvG1T-OobhmtaxcckkqgoVLZ-9: 88024WxqjwgeL8X-HewvyhryyadctsfQTS-1: 41659 GufjdopL5X-JcbflufmyjntekmYVH-0: 62886BhqsaqoR8B-DdhwmlnrhfvvjsqRVU-3: 95509 AjqdacrR9J-ObqeoihznrljmzwLWF-7: 22475SqlsiqdL5Z-BnmjuwcmnerxpniPES-7: [address]: 563899192 CPT-4: V26QlbnsahE9G-FqjowbojhofjzyxILP-3: 40681Kdnijqv Vital Signs Date Vital 11/09/2023 Blood Pressure 1: 110/84 Code: 8480-6 BMI: 53.3 Code: 78097-7 Heart Rate 1: 71 bpm Height: 4'11 Code: 8302-2 Respiratory Rate: 16 bpm SpO2: 99% Temperature: 36.3 (C) / 97.3 (F) Weight: 263 lbs 12 oz Code: 01435-8 Reason For Visit Reason For Visit Effective Dates Notes established patient visit 11/09/2023 Interim health update 11/09/2023 diabetes mellitus 11/09/2023 HTN 11/09/2023 Encounters Encounter Performer Location Location Address Codes [place] [id number]) (EST PT) DETAILED [facility] VISIT Diagnosis: Type 2 diabetes mellitus with peripheral neuropathy[ICD10: E11.42] Diagnosis: Hypertensive heart disease without heart failure[ICD10: I11.9] Diagnosis: Major depression, recurrent[ICD10: F33.9] Diagnosis: Adult BMI 50.0-59.9 kg/sq m[ICD10: Z68.43]Anna Bourgeois Rphbdx[address] [place] [address] 91114VGQ-5: 63979 11/09/2023 Plan of Care Planned Activity Notes Codes Status Date Visit Plan: Visit time spent inv olved in medical discussion with patient, including obtaining history from patient, systems review, diagnostic and laboratory test review with patient. Assessment findings and plan reviewed with patient, including time to provide counseling, and education to patient E11.42-250.60 Type 2 diabetes mellitus with peripheral neuropathy BS trends reviewed, testing 3-4x's daily, CGM not received yet, flucuations persist, food log reviewed which reveals patient not always making good food choices, time spent discussing diet will send referral for diabetic education to address further continue joie and viktor, intolerance to metformin I11.9-402.90 Hypertensive heart disease without heart failure BP stable with chago and diuretic, will continue to monitor F33.9-296.30 Major depression, recurrent good days/bad days, continue formal MH support, discussed self care Z68.43-V85.43 Adult BMI 50.0-59.9 kg/sq m Note weight gain this visit, discussed impact of weight on managing DM2, patient remains motivated to lose weight 11/09/2023atient Education: MytctzuyWrxvmybxq69/07/2024atient Education: Patient Medication AzetzjnEnemkggnh25/07/2024atient Education: Hypertension Rjaxtkcem48/07/2024atient Education: JsmtxvyMhgqosuix52/07/2024ppointment: Anna Culver WPtel: [phone] [place] [address] USETV10/21/2023ppointment: Anna Culver WPtel: [address] [place] [address] [id number]: Anna Culver WPtel: [phone] [place] [address] BSW6419510/05/2022ppointment: Anna Culver WPtel: [phone] [place] [address] [id number]: Anna Culver WPtel: [address] [place] [address] [id number]: Anna Culver WPtel: [address] [address] [id number]: Anna Culver WPtel: [phone] [place] [address] [id number]: Anna Culver WPtel: [address] [place] [address] [id number]: Anna Culver WPtel: [phone] [place] [address] HTC5257410/17/2021ppointment: Anna Culver WPtel: [phone] [place] [address] [id number]: Chivo Bishop WPtel: [phone] [place] [address] [id number]: Chivo Bishop WPtel: [phone] [place] [address] [id number]: Mikey Nair WPtel: [facility]0 [facility] NerykcAQ96753 [id number]: Chivo Bishop WPtel: [phone] [place] [address] [id number]: Chivo Bishop WPtel: [phone] [place] [address] [id number]: Chivo Bishop WPtel: [phone] [place] [address] USET09/10/2021ppointment: Chivo Bishop WPtel: [address] [place] [address] USETV110/13/2020ppointment: Chivo Bishop WPtel: [phone] [place] [address] USETV10ppointment: Chivo Bishop WPtel: [phone] [place] [address] REBCAY41/ppointment: Anna Culver WPtel: [phone] [place] [address] USETV06/02/2021ppointment: Chivo Bishop WPtel: [phone] [place] [address] USETV05/20/2021ppointment: Anna Culver WPtel: [phone] [place] [address] USETV04/28/2021ppointment: Chivo Bishop WPtel: [address] [place] [address] USETV04/15/2021ppointment: Anna Culver WPtel: [address] [place] [address] [id number]: Anna Culver WPtel: [phone] [place] [address] USETV03/24/2021ppointment: Anna Culver WPtel: [phone] [place] [address] USETV03/13/2021ppointment: Anna Culver WPtel: [phone] [place] [address] [id number]: Chivo Bishop WPtel: [phone] [place] [address] [id number]/ppointment: Anna Culver WPtel: [phone] [place] [address] USETV04/ppointment: Anna Culver WPtel: [phone] [place] [address] [id number]: Chivo Bishop WPtel: [phone] [place] [address] USETV11/28/2020ppointment: Anna Culver WPtel: [phone] [place] [address] USETV11/24/2020ppointment: Anna Culver WPtel: [phone] [place] [address] [id number]: Anna Culver WPtel: [address] [place] [address] GXP1882011/25/2019Appointment: Anna Culver WPtel: [address] [place] [address] USETV110/26/2019Appointment: Anna Culver WPtel: [address] [place] [address] USETV110/19/2019Appointment: Anna Culver WPtel: [address] [place] [address] USETV1Appointment: Anna Culver WPtel: [address] [place] [address] USETV1Appointment: Gianna Birmingham: [facility]8 [address] BHOXMF8607/02/2020Appointment: Anna Culver WPtel: [address] [place] [address] [id number]: Anna Culver WPtel: [phone] [address] [id number]: Anna Culver WPtel: [phone] [place] [address] [address] [address] [id number]: Anna Culver WPtel: [phone] [place] [address] [id number]: Anna Culver WPtel: [phone] [place] [address] [id number]: Anna Culver WPtel: [phone] [place] [address] [id number]: Anna Culver WPtel: [address] [place] [address] [id number]: Anna Culver WPtel: [address] [place] [address] [id number]: Anna Culver WPtel: [address] [place] [address] [id number]: Anna Culver WPtel: [address] [place] [address] JYF8531011/20/2018Appointment: Sudha Hernadez WPtel: [address] [facility] UmoccbWB49018 [id number]: Sudha Hernadez WPtel: [address] [facility] [address] [id number]: Charlene Oropeza WPtel: [address] [facility] [address]rrvfvAX04772 [id number]: Office, YfrjqhF34683/26/2019Appointment: Charlene Oropeza WPtel: [address] [facility] b YxrlmbHP63943 [id number]: Rasta Palafox WPtel: [address] [facility] 202 [id number]: Hema Palafoxothy WPtel: [address] [facility] b [id number] [id number]: Rasta Palafox WPtel: [address] [facility] b EvpyveVU79861 [id number]: Rasta Palafox WPtel: [address] [facility] InpnwiKR76007 [id number]: Pending Gynecology Referral InformationReferral ProcessedReferral: Pending Pulmonology Referral InformationReferralProcessed Referral: Pending Psychiatry Referral InformationReferralInitiatedReferral: Pending Respiratory Services Referral InformationReferralInitiatedReferral: Pending Ophthalmology Referral InformationReferralInitiatedReferral: [facility] WPtel: [address] [facility] [address] [place] USWriter placed a call out to the patient to notify her that it has been recommended that she be seenby a urologist. Patient agreed to be seen, does not have a provider of choice and no transportationissues. Radiographer Cardiac Catheterization faxed referral and clinical notes to [facility] in [place], [place] near the patient's home. [...] seen and prefers a provider in the [place] or [place] area. Radiographer Cardiac Catheterization placed a call out to everyone listed in the area and the only location that was able to accept the patient's insurance was [facility] [address] [place] [address] and spoke with Maylin. Maylin asked that the patient's referral, face sheet and visit notes be faxed to . Radiographer Cardiac Catheterization faxed over requested documents. Patient appointment confirmation letter generated and mailed to her home address. Patient to call to schedule an appointment.ProcessedReferral: [facility] WPtel: [address] [place], [place] [address] USPatient notified that it has been advised that she be seen by Neurology. Patient agreed to be seen and prefers to be seen by a provider in the [place], [place] area. Patient denies any concerns with transportation, and prefers to schedule her own appointment. Radiographer Cardiac Catheterization placed a call out to [facility] [...] Type 2 diabetes mellitus with peripheral neuropathy BS trends reviewed, testing 3-4x's daily, CGM not received yet, flucuations persist, food log reviewed which reveals patient not always making good food choices, time spent discussing diet will send referral for diabetic education to address further continue joie and viktor, intolerance to metformin I11.9-402.90 Hypertensive heart disease without heart failure BP stable with chago and diuretic, will continue to monitor F33.9-296.30 Major depression, recurrent good days/bad days, continue formal support, discussed self care Z68.43-V85.43 Adult BMI 50.0-59.9 kg/sq m Note weight gain this visit, discussed impact of weight on managing DM2, patient remains motivated to lose cakdmb6811/09/2023 Medical Equipment No Medical Equipment data Advance Directives No Advance Directive data
--- OUTSIDE RECORDS SUMMARY | 2024-12-17 06:40 | XMS_ITS ---
Author Organization [facility] Address [address] [place] [address] Care Team Providers Care Transverse Abdominal Muscle Surgeon Name Role Phone Hoang Lainez Unavailable [phone] REASON FOR VISIT LEFT SHOULDER Encounters Encounter Location Date Provider Diagnosis [facility] [address] [place] [address] [place] [address] 12/17/2024 Hoang Lainez Plan Of Treatment No Information Progress Notes * JOSH HENDRICKSON MDOB:[birth year] (39 yo F)Acc No.[id number]:12/17/2024 Patient:?JOSH HENDRICKSON :[facility]1985[facility]Age:39 Y ???Sex:FemaleDate:12/17/2024Phone:[phone]:[id number] Subjective: * Chief Complaints: * 1 . LEFT SHOULDER. * Medical History: Objective: * Vitals: Assessment: Plan: * Treatment: Forms: * Images: * Electronic signature of Hoang Lainez MD on 07/29/2025 at 02:20 PM EDTSign off status: Pending * Provider: Laurent Lainez MD Date: 0 12/17/2024 Generated for Printing/Faxing/eTransmitting on:?07/29/2025 02:20 PM EDT
--- OUTSIDE RECORDS SUMMARY | 2025-04-16 06:00 | XMS_ITS ---
Author Organization [facility] in [place] Address [address] [place] [address] Care Team Providers Care Jumpbasting Machine Operator Name Role Phone Lizbeth Snyder CNP Primary Care Provider U Kolby Jaquez [phone] REASON FOR VISIT 9 month follow up Encounters Encounter Location Date Provider Diagnosis [facility] [address] [place] [address] 04/16/2025 Kolby Raymundo Plan Of Treatment No Information Progress Notes * Angela INGRAM MDOB:[birth year] (39 yo F)Acc No.[id number]:04/16/2025 UNLOCKED PROGRESS NOTE Patient:Angela QUIROGA :?BARON SabillonOB:1985???Age:39 Y ???Sex:FemaleDate:04/16/2025Phone:[phone]:[address] [place] [address], [address] [place], [place]Lht:Lizbeth Snyder CNP Subjective: * Chief Complaints: * 1 . 9 month follow up. * Medical History: Objective: * Vitals: Assessment: Plan: * Treatment: * * Electronic signature of Kolby Raymundo MD, [id number] on 07/29/2025 at 02:11 PM EDTSign off status: PendingVisit Status:?CANC (Cancelled) * Provider: Mehran Raymundo MD Date: 0 04/16/2025 Generated for Printing/Faxing/eTransmitting on:?07/29/2025 02:11 PM EDT
--- OUTSIDE RECORDS SUMMARY | 2025-07-15 10:00 | XMS_ITS | Encounter Summary ---
Author Organization [facility] tem Address [id number] [address] [place] [address] Care Team Providers Care Door Liner Helper Name Role Phone Lizbeth Snyder Primary Care Provid er Reason for Referral * Consultation (Routine) - Pending ReviewSpecialtyDiagnoses / ProceduresReferred By ContactReferred To ContactWeight Loss Diagnoses Morbid obesity ([facility]) Malcolm Salmon DO [address] [place] [address] Phone: tel: fax: [facility] - [address] [address] Phone: tel: fax: Referral IDStatusReasonStart DateExpiration DateVisits RequestedVisits [id number] Reason for Visit * ReasonCommentsNew PatientLS TMP, NO RECENT TESTING DONE, NO DEVICES, COVID 2020, SCHED W/PT * Consultation (Routine) - Pending ReviewSpecialtyDiagnoses / ProceduresReferred By ContactReferred To ContactCardiology Diagnoses Morbid obesity (CMS-HCC) Charlene Burris MD [address] [place] [address] Phone: tel: fax: [facility] [address] [place] [address] Phone: tel: fax: Referral IDStatusReasonStart DateExpiration DateVisits RequestedVisits [id number] Review Specialty Services Required / Encounter Details DateTypeDepartmentCare Team (Latest Contact Info)Whkofhmexjz70/13/2025 10:00 AM EDTOffice Visit [facility] [address] [place] [address] Jani Posadas MD [address] [place] [address] Malcolm Salmon A, DO [address] [place] [address] Shortness of breath (Primary Dx); Morbid obesity ([facility]) Social History Tobacco UseTypesPacks/DayYears UsedDateSmoking Tobacco: NeverSmokeless Tobacco: NeverAlcohol UseStandard Drinks/WeekCommentsNo0 (1 standard drink = 0.6 oz pure alcohol)PHQ-2AnswerDate RecordedTotal Tanrn0294ChildcareAnswerDate RajfhlwvWiqhkogtgOtjowgj65/04/2019EmploymentAnswerDate RecordedEmploymentUnknown 03/06/2019Hunger ScreeningAnswerDate RecordedWithin the past 12 months we worried whether our food would run out before we got money to buy more.Never True05/17/2025Within the past 12 months the food we bought just didn't last and we didn't have money to get more.Never True05/17/2025Purpose - LifeAnswerDate RecordedPurpose and direction in loijMxuhfrh88/11/2021CommentsNoSex and Gender InformationValueDate RecordedSex Assigned at ZeopgOesxzp00/07/2023 12:31 PM EDTLegal YykGzterb75/01/2015 10:00 AM ESTGender JkrpormmIcnunh01/29/2019 5:14 PM EDTSexual OrientationNot on filedocumented as of this encounter Last Filed Vital Signs Vital SignReadingTime TakenCommentsBlood Idxykrrn780/8010 9:20 AM EDT Sdawh1876 9:20 AM EDTTemperature--Respiratory Rate--Oxygen Saturation-- Inhaled Oxygen Concentration--Aajkyw833.4 kg (283 lb)07/15/2025 9:20 AM EDT Cvpqfk964.1 cm (4' 11.5 )07/15/2025 9:20 AM EDTBody Mass Index56.210 9:20 AM EDTdocumented in this encounter Patient Instructions * Attachments The following attachments cannot be sent through Care Everywhere. * Mediterranean diet (Canadian) documented in this encounter Progress Notes * Malcolm Salmon, - 07/15/2025 10:00 AM EDT Angela Morgan Juan Jose Date of visit: 07/15/2025 Date of : 1985 Age: 39 y.o. Patient Active Problem List Diagnosis Obesity, morbid, BMI 50 or higher [place] HTN (hypertension) Shortness of breath Type 2 diabetes mellitus, without long-term current use of insulin ([facility]) Chronic ulcer of right midfoot limited to breakdown of skin ([facility]) Generalized anxiety disorder Learning disability Moderate recurrent major depression ([facility]) Psychogenic nonepileptic seizure Allergies Allergen Reactions Claritin [...] morbid obesity, MUKESH noncompliant with CPAP, hypertension, vdr-qfeomiy-bzwualonc diabetes mellitus, nonepileptic seizures who presents for [...] no discontinued medications. IMPRESSIONS/PLAN 1. Morbid obesity ([facility]) - [facility] - [place], [place] - POCT EKG - [facility] - [place], [place]; Future 2. Shortness of breath - [...] Encounter Procedures [facility] [place] [place] PO[place] [facility] FOLLOW UP No follow-ups on file. PCP: NELSON Castillo Referring Physician: NELSON Castillo [address] [place] [address] documented in this encounter Plan of Treatment DateTypeDepartmentCare Team (Latest Contact Info)Qfgvucksxyh05/23/2026 9:30 AM ESTOffice Visit [facility] [address] [address] Katherine Garcia MD [address] [facility] [address] [place] [address] NameTypePriorityAssociated DiagnosesOrder ScheduleProMedica [facility] - [place], [place]Outpatient ReferralRoutine Morbid obesity ([facility]) 1 Occurrences starting 07/15/2025 until 07/15/2026documented as of this encounter Procedures Procedure NamePriorityDate/TimeAssociated DiagnosisCommentsPOCT EKGRoutine 07/15/2025 Morbid obesity ([facility]) Shortness of breath documented in this [...] follow-up plan has been documented for the dattgzs8705/01/2025 9:45 AM EDTdocumented as of this encounter Care Teams Team MemberRelationshipSpecialtyStart DateEnd Date Lizbeth Snyder APRN-CHRISTINE [address] [place] [address] PCP - General12/10/23documented as of this encounter
[2025-07-29 13:59] VITALS: BP 109/91; PULSE 95; TEMP 37; O2SAT 96; BMI 57.6
--- OUTSIDE RECORDS SUMMARY | 2025-07-29 14:04 | XMS_ITS | Clinical Summary ---
Author Organization [facility] Address [address], [address] [place] [address] Care Team Providers Care Cdl Program Coordinator Name Role Phone Anna Culver APRN - PROTOTYPE MACHINIST Primary Care Provi anish Allergies Active AllergyReactionsCriticalityNoted DateCommentsLoratadinePalpitationsLow 03/31/20202185NeevuhjluqijqbpzmyOtkkaBzm30/29/2020 Medications MedicationSigDispense QuantityRefillsLast FilledStart DateEnd DateStatus albuterol [...] Last Filed Vital Signs Vital SignReadingTime TakenCommentsBlood Zpojviru801/7204 5:15 PM EDT Vhyzl0246 5:15 PM RSBIlrhbuejqdl81.6 ??C (97.9 ??F)01/05/2021 5:00 PM EDTRespiratory Erco6234 5:15 PM EDTOxygen Iuddeeaiyj28%01/05/2021 5:00 PM EDTInhaled Oxygen Concentration--Ncpuel656.4 kg (263 lb 3.7 oz)01/05/2021 1:26 PM NPYNuxjxo574.9 cm (4' 11 )01/05/2021 1:26 PM EDTBody Mass Index53.17 01/05/2021 1:26 PM EDT Plan of Treatment Not on file Medical Devices ImplantedTypeAreaManufacturerDevice IdentifierShelf Expiration DateModel / Serial / LotKit Lead Sure Scan Interstim Mri Implanted:Qty: 1 on 12/22/2020 [facility]:StimulatorMEDTRONIC USA INC-[id number]/[id number] / / [id number] Neurostimulator H1.7xl2in Thk3in Torq Wrnch Prod - [id number] Implanted:Qty: 1 on 01/05/2021 by [facility]-WD05/[id number] / [id number] / Insurance Care Teams Team MemberRelationshipSpecialtyStart DateEnd Date Anna Culver APRN - ARUN PCP - GeneralNurse Practitioner, Family03/26/20
--- OUTSIDE RECORDS SUMMARY | 2025-07-29 14:11 | XMS_ITS | Clinical Summary ---
Author Organization [facility] Address [address] [facility] [place] [address] Care Team Providers Care Solder Sprayer Name Role Phone Anna Culver MD Unavailable [phone] Lizbeth Snyder NP Primary Care Provider Hoang Ragland MD Unavailable [phone] Yamile Lofton Unavailable Allergies Active AllergyReactionsCriticalityNoted DateCommentsLoratadinePalpitations, FnpusjbXfj92/18/1965CaxcnqgqyAztegsj93/27/2023MethylprednisoloneHives,UnknownLow 04/09/2019OxycodoneRash,NpvnaefEel24/20/2021 Medications MedicationSigDispense QuantityRefillsLast FilledStart DateEnd DateStatus Apple Cider Vinegar 188 MG capsule Active busPIRone (Buspar) 15 MG tablet Take 15 mg by mouth DailyActive Calcium Citrate-Vitamin D (Calcium + D) 315-5 MG-MCG tablet Active cetirizine (ZyrTEC) 10 MG tablet Active hydroCHLOROthiazide (HYDRODiuril) 25 MG tablet Take 25 mg by mouth DailyActive HYDROcodone-acetaminophen ([place]) 5-325 MG tablet Active hydrOXYzine pamoate (Vistaril) [...] tablet Take 50 mg by mouth at kxquhyc7604/21/2023ctive Turmeric powder Active SITagliptin (Januvia) 50 MG [...] Problems No known active problems Encounters DateTypeDepartmentCare TptoLubzaqdlunu51/20/2025 1:30 PM EDTProcedure Visit [facility] [address] [place] [address] Hoang Sierra DPM Onychocryptosis (Primary Dx); Dystrophic nail; Pain around toenail, right foot; Pain around toenail, left foot; Difficulty mtivaww6205/22/2025amboo flowsheet [facility] [address] [facility] [address] Hoang Sierra DPM 05/22/20252238Pwvjcl88/19/2025Travelfrom Last 3 Months Immunizations ImmunizationAdministration DatesNext XpfXTW7711/26/2020Influenza, injectable, lokxvzyvzrri72/26/2019Influenza, injectable, quadrivalent, preservative free 07/30/2020 Family History [...] RecordedSex Assigned at BirthNot on fileLegal Sex Ldasuy0612/15/2022 8:26 PM EDTGender IdentityNot on fileSexual OrientationNot on file Last Filed Vital Signs Vital SignReadingTime TakenCommentsBlood Vusflkjx251/80001/16/2025 2:58 PM EDT Pulse--Temperature--Respiratory Rate--Oxygen Saturation--Inhaled Oxygen Concentration--Ovkauz935 kg (288 lb)05/22/2025 1:46 PM BPZLvvili003.9 cm (4' 11 )05/22/2025 1:46 PM EDTBody Mass Index58.17005/22/2025 1:46 PM EDT Plan of Treatment DateTypeDepartmentCare Team (Latest Contact Info)Powuggqsiho14/23/2025 2:45 PM ESTProcedure Visit [facility] [address] [place] [address] Hoang Sierra, DPM [address] [place] [address] Health MaintenanceDue DateLast DoneCommentsInfluenza Vaccine (#1)06/03/2025 08/05/2023, 07/30/2020, 06/28/2019Pap Smear05/01/19014205/01/2025, 05/01/2025, 06/10/2020Cervical Cancer Kvvznqjlz51/30/2030HPV/Jsjjlu06 Insurance Care Teams Team MemberRelationshipSpecialtyStart DateEnd Lizbeth Snyder NP [address] [place] [address] [place] [address] PCP - GeneralFamily Medicine03/14/24 Anna Culver MD [address] [place] [address] Referring PhysicianFamily Oivbibxf66/15/23 Hoang Ragland MD [address] [facility] [place] [address] Referring FdqkewtpzTdtjzfbin39/9/24 Yamile Lofton PA [address] [place] [address] Physician PlhunxvflPzqsvixem81/9/24
--- OUTSIDE RECORDS SUMMARY | 2025-07-29 14:15 | XMS_ITS | Encounter Summary ---
Author Organization [employer] [facility] tem Address [id number] [address] [place] [address] Care Team Providers Care Worm Picker Name Role Phone Lizbeth Snyder Primary Care Provid er Encounter Details DateTypeDepartmentCare Team (Latest Contact Info)Beutioxezvr54/13/2025Travel Social History Tobacco UseTypesPacks/DayYears UsedDateSmoking Tobacco: NeverSmokeless Tobacco: NeverAlcohol UseStandard Drinks/WeekCommentsNo0 (1 standard drink = 0.6 oz pure alcohol)PHQ-2AnswerDate RecordedTotal Bhroj8394ChildcareAnswerDate SydhhyfvVwaggxnoiKhjacsu01/04/2019EmploymentAnswerDate RecordedEmploymentUnknown 03/06/2019Hunger ScreeningAnswerDate RecordedWithin the past 12 months we worried whether our food would run out before we got money to buy more.Never True05/17/2025Within the past 12 months the food we bought just didn't last and we didn't have money to get more.Never True05/17/2025Purpose - LifeAnswerDate RecordedPurpose and direction in pukiBcnauzi69/11/2021CommentsNoSex and Gender InformationValueDate RecordedSex Assigned at PgquoUetvsw33/07/2023 12:31 PM EDTLegal TxqHfdfus06/01/2015 10:00 AM ESTGender FezdszwlJarflz08/29/2019 5:14 PM EDTSexual OrientationNot on filedocumented as of this encounter Plan of Treatment DateTypeDepartmentCare Team (Latest Contact Info)Ocurznpdijz50/23/2026 9:30 AM ESTOffice Visit [facility] [address] [place] [place] [address] Katherine Garcia MD [address] [facility] [address] [place] [address] documented as of this encounter Visit Diagnoses Not on filedocumented in this encounter Additional Health Concerns AssessmentNoted TimePHQ-9 Depression Total Score: 8002/06/2024 8:28 AM EDTA Body Mass Index follow-up plan has been documented for the ovmdyjy1805/01/2025 9:45 AM EDTdocumented as of this encounter Care Teams Team MemberRelationshipSpecialtyStart DateEnd Date Lizbeth Snyder APRN-CHRISTINE [address] [place] [address] PCP - General12/10/23documented as of this encounter
[2025-07-29] MEDS: IPRATROPIUM/ALBUTEROL SULFATE 3 ML AMPUL.NEB IH (14:23)
[2025-07-29 14:24] VITALS: PULSE 90; O2SAT 97
--- OUTSIDE RECORDS SUMMARY | 2025-07-29 14:25 | XMS_ITS | CCD ---
Author Organization [facility] Care Team Providers Care Gl Accountant Name Role Phone Ingrid Culver Primary Care Provider [phone] INGRID CULVER Primary Care Unavailable KOLBY ELLIS Attending Unavailable RHONDA, KOLBY Admitting Unavailable RHONDA, KOLBY Admitting Unavailable INGRID CULVER Primary Care Unavailable RHONDA, KOLBY Attending Unavailable RHONDA, KOLBY Admitting Unavailable RHONDA, KOLBY Attending Unavailable INGRID CULVER Primary Care Unavailable ROBBIE Kim, GEOVANNI Admitting Unavailable VIANCA BLANCHARD Unavailable DR DIONICIO BARBOUR Primary Care Unavailable GEOVANNI CUEVAS Attending Unavailable ANDREINA DHILLON Consulting Unavailable GEOVANNI CUEVAS Consulting Unavailable LUISA RANGEL Unavailable DANDRE Snyder Primary Care Provider DANDRE Snyder Attending Provider Lizbeth Snyder Attending Unavailable Lizbeth Snyder Primary Care Unavailable Lizbeth Snyder Admitting Unavailable Ingrid Culver MD Unavailable Lizbeth Snyder NP Primary Care Provider Claudio AMOS-CHRISTINE, Lizbeth Primary Care [facility] er Laurent Ragland MD Unavailable [phone] Yamile Sy Unavailable Ingrid Woodard Primary Care Provider Lizbeth Snyder NP Primary Care Provider Claudio AMOS-CHRISTINE, Lizbeth Primary Care [facility] er Lizbeth Snyder APRN Primary Care Provider Lizbeth Snyder APRN Attending Provider [phone] Obie BOWMAN, Laurent Unavailable [phone] LAURENT SIERRA Attending Unavailable YAMILE LOFTON Attending Unavailable RUSHER, LAURENT Fajardo Attending Unavailable RUSHER, LAURENT A Attending Unavailable RUSHER, LAURENT A Attending Unavailable RUSHER, LAURENT A Referring Unavailable LOWYAMILE Rios Attending Unavailable KATHERINE DOSS Attending Unavailable ROHRBACHER, LIZBETH Referring Unavailable ROHRBACHER, LIZBETH Primary Care Unavailable ROHRBACHER, LIZBETH Referring Unavailable ROHRBACHER, LIZBETH Primary Care Unavailable CHARLENE CARDENAS Attending Unavailable ROHRBACHER, LIZBETH Referring Unavailable ROHRBACHER, LIZBETH Primary Care Unavailable KATHERINE DOSS Attending Unavailable ROHRBACHER, LIZBETH Referring Unavailable ROHRBACHER, LIZBETH Primary Care Unavailable Kolby Ellis Attending Unavailable Palomo, Ingrid Primary Care Unavailable Palomo, Ingrid Primary Care Unavailable Kolby Ellis Attending Unavailable Palomo, Ingrid Primary Care Unavailable Kolby Ellis Attending Unavailable FREDDY MCFADDEN Attending Unavailable ROHRBACHER, LIZBETH Referring Unavailable ROHRBACHER, LIZBETH Primary Care Unavailable FREDDY MCFADDEN Attending Unavailable ROHRBACHER, LIZBETH Referring Unavailable ROHRBACHER, LIZBETH Primary Care Unavailable KATHERINE DOSS E Referring Unavailable ROHRBACHER, LIZBETH Primary Care Unavailable KATHERINE DOSS Attending Unavailable ROMARIO KATHERINE E Referring Unavailable ROHRBACHER, LIZBETH Primary Care Unavailable KATHERINE DOSS Attending Unavailable ROMARIO KATHERINE E Referring Unavailable ROHRBACHER, LIZBETH Primary Care Unavailable MALIK PALMER Attending Unavailable ROHRBACHER, LIZBETH Referring Unavailable ROHRBACHER, LIZBETH Primary Care Unavailable Allergies Allergy ClassificationReported Allergen(s)Allergy TypeDate of OnsetReaction(s) Facility (20 sources)Loratadine; Translations: [LORATADINE]Drug Pqwcthx18-13-9366 [place], [place] (20 sources)methylPREDNISolone; Translations: [METHYLPREDNISOLONE]Drug Allergy [place] (2 sources[place]Loratadine; Translations: [Claritin]Drug Rurpulj33-47-9412[facility] (8 sources)metFORMIN; Translations: [METFORMIN]Drug Ukxxewb29-85-5387Wrpvsxc ReactionThe [facility] (1 source)methylPREDNISoloneDrug AllergyThe [facility]uff[facility] (20 sources)oxyCODONE; Translations: [oxycodone]Drug Zcbhsvn15-60-5542[facility] ([facility] source)LoratadineDrug Hhampqb27-17-8851[facility] ([facility] source)metFORMINDrug Cmwmkdf03-23-4955YpsttnfhiProtestant Hospital [facility] (1 source)methylPREDNISoloneDrug Dwygrge86-48-9806CcnhalnsuProtestant Hospital [facility] (15 sources)LoratadineAllergy to -48-5398KqgrngadtaidSurgical [facility]ty [facility] at [facility] (20 sources)metFORMINDrug Jidnmmt81-21-6633Nrvxrtz, DiarrheaRegency Hospital Company System Medications Current Medications MedicationDrug Class(es)DatesSig (Normalized)Sig (Original)acetaminophen 325 mg / HYDROcodone bitartrate 5 mg oral tablet (15 sources)Opioid AgonistHYDROcodone-acetaminophen ([place]) 5-325 MG tablet [id number] 200 actuat albuterol 0.09 mg/actuat metered dose inhaler (20 sources)beta2-Adrenergic AgonistStart: 70-25-7097ioso 1 puff(s) by inhalation every four to six hours as neededAlbuterol Sulfate (Ventolin Hfa) 90 mcg/actuation HFA aerosol inhaler Active 2 PUFF INHALATION EVERY 4-6 HOURS as needed December 02, 2023 1:00am Complies with drug therapyStart: 11-11-2022 End: 28-84-0229ezjd 2 puff(s) by mouth every four to six hours as neededVENTOLIN HFA 90 mcg/actuation inhaler Indications: Moderate persistent asthma, unspecified whether complicated INHALE 2 PUFFS BY MOUTH EVERY 4 TO 6 HOURS NEEDED 18 g 10 09/04/2024 05/27/2025 Discontinuedtake 2 puff(s) by inhalation every six hours as needed for wheezingalbuterol sulfate HFA (VENTOLIN HFA) 108 (90 Base) MCG/ACT inhaler Inhale 2 puffs into the lungs every 6 hours as needed for Wheezing 0 ActiveApple Cider Vinegar (16 sources)take 1 tablet by mouth in the morningAPPLE CIDER VINEGAR ORAL Take 1 tablet by mouth in the morning. ActiveApple Cider Vinegar 188 MG capsule Active Apple Cider Vinegar 188 MG capsule Apple Cider Vinegar ActiveARIPiprazole 10 mg oral tablet (20 sources)Atypical AntipsychoticStart: 65-37-5729kste 1 tablet by mouth in the morningARIPiprazole (ABILIFY) 10 mg tablet Take 1 tablet (10 mg total) by mouth in the morning. 05/19/2022ctiveatorvastatin 20 mg oral tablet (20 sources)HMG-CoA Reductase InhibitorStart: 12-09-2022 End: 43-68-8017fdtc 1 tablet by mouth in the morningatorvastatin (LIPITOR) 20 mg tablet Take 1 tablet (20 mg total) by mouth in the morning. 12/09/2022ctive take 1 tablet by mouth once dailyatorvastatin (LIPITOR) 20 MG tablet Take 20 mg by mouth daily 0 Wvlkbl909 actuat budesonide 0.16 mg/actuat / formoterol fumarate 0.0045 mg/actuat metered dose inhaler (20 sources)Corticosteroid, beta2-Adrenergic AgonistStart: 12-02-2023 End: 89-00-2195cfij 1 puff(s) by inhalation once daily as neededBudesonide- Formoterol (Symbicort) 160-4.5 mcg/actuation HFA aerosol inhaler Active 2 PUFF INHALATION Daily as needed December 02, 2023 10:12am Complies with drug therapy Start: 12-10-2022 End: 92-78-4680jieg 2 puff(s) by mouth twice dailySYMBICORT 160-4.5 mcg/actuation inhaler Indications: Moderate persistent asthma, unspecified whether complicated INHALE 2 PUFFS BY MOUTH TWICE DAILY 10.2 g 10 10/04/2024 05/27/2025 DiscontinuedBudesonide-Formoterol Fumarate (SYMBICORT IN) (3 sources)Budesonide-Formoterol Fumarate (SYMBICORT IN) Inhale into the lungs as needed 0 ActivebusPIRone hydrochloride 15 mg oral tablet (20 sources)Start: 07-21-2021 End: 48-49-0940kfeq 1 tablet by mouth three times dailybusPIRone (BUSPAR) 15 mg tablet Take 1 tablet (15 mg total) by mouth 3 (three) times a day. 07/21/2021 ActiveStart: 07-21-2021 End: 10-34-0191exsc 1 tablet by mouth twice dailyBuspirone 15 mg tablet Discontinued 15 MG PO Twice daily December 02, 2023 1:00am December 02, 2023 10:13am Start: 75-94-5408zldRBQshf (BUSPAR) 15 mg tablet 4 (four) times a day. 07/21/2021 Activetake 1 tablet by mouth once dailybusPIRone (Buspar) 15 MG tablet Take 15 mg by mouth Daily Activetake 1 tablet by mouth twice daily busPIRone (BUSPAR) 10 MG tablet Take 10 mg by mouth 2 times daily 0 Active calcium chloride 0.0014 meq/ml / potassium chloride 0.004 meq/ml / sodium chloride 0.103 meq/ml / sodium lactate 0.028 meq/ml injectable solution (1 source)Start: 71-35-5116cpdwyyrl ringers infusionStart: 53-07-4593gcwlkaun ringers infusioncalcium citrate 1500 mg / cholecalciferol 200 unt oral tablet (15 sources)Vitamin DCalcium Citrate-Vitamin D (Calcium + D) 315-5 MG-MCG tablet Activecephalexin 500 mg oral capsule (1 source)Cephalosporin AntibacterialStart: 12-22-2020 End: 36-50-5580gsie 1 capsule by mouth three times dailycephALEXin (KEFLEX) 500 MG capsule Take 1 capsule by mouth 3 times daily for 5 days 15 capsule 0 12/27/2020 Activecetirizine hydrochloride 10 mg oral tablet (20 sources)Histamine-1 Receptor AntagonistStart: 12-02-2023 End: 58-75-4008bdap 1 tablet by mouth once dailyCetirizine (All Day Allergy (Cetirizine)) 10 mg tablet Active 10 MG PO Daily 90 90 May 31, 2025 7:49am Complies with drug therapycholecalciferol 0.05 mg oral capsule (20 sources)Vitamin DStart: 04-13-2024 End: 12-99-6064vduu 1 capsule by mouth once dailyCholecalciferol (Vitamin D3) (Vitamin D3) 50 mcg (2,000 unit) capsule Active 50 MCG PO Daily 90 90 May 31, 2025 7:49am Complies with drug therapyStart: 12-02-2023 End: 27-16-1613ipoj 1 capsule by mouth once dailyCholecalciferol (Vitamin D3) (Vitamin D3) 50 mcg (2,000 unit) capsule Discontinued 2000 UNIT PO Daily December 02, 2023 1:00am April 13, 2024 12:42pmStart: 68-77-7274nqrb 1 capsule by mouth in the morningVITAMIN D3 50 mcg (2,000 unit) capsule Take 1 capsule (2,000 Units total) by mouth in the morning. 12/03/2021 Activediclofenac sodium 75 mg delayed release oral tablet (3 sources)Nonsteroidal Anti-inflammatory DrugStart: 28-79-5620qotf 1 tablet by mouth twice daily as neededDiclofenac Sodium 75 mg tablet,delayed release (DR/EC) Active 75 MG PO Twice daily as needed December 04, 2024 1:00am Complies with drug therapyDulaglutide (20 sources)GLP-1 Receptor AgonistStart: 72-25-2206lnndrt 3 mg by subcutaneous injection every weekDulaglutide (Trulicity) 3 mg/0.5 mL pen injector Active 0 .ROUTE .COMPLEX 2 May 29, 2025 2:44pm INJECT 3mg SUBCUTANEOUSLY (UNDER THE SKIN) EVERY WEEK Complies with drug therapyStart: 05-29-2025 End: 24-69-0846Zononxstmch 3 mg/0.5 mL pen injector Discontinued 3 MG SUBCUT every week 2.5 May 29, 2025 1:36pm May 29, 2025 2:44pmStart: 97-44-5469Lzcwifyufza 3 mg/0.5 mL pen injector Active 3 MG SUBCUT every week 2.5 May 29, 2025 1:36pm Complies with drug therapyStart: 84-07-0157bnysrz 3 mg by subcutaneous injection every weekTRULICITY 1.5 mg/0.5 mL pen injector Inject 3 mg under the skin once a week. 05/08/2025 ActiveStart: 01-17-2025 End: 80-21-7289xstudc 1.5 mg by subcutaneous injection every weekTRULICITY 1.5 mg/0.5 mL pen injector Inject 1.5 mg under the skin once a week. 05/08/2025 ActiveStart: 06-22-2024 End: 82-69-2762dkctqe 0.5 mL by subcutaneous injection every weekDulaglutide (Trulicity) 0.75 mg/0.5 mL pen injector Discontinued 0 .ROUTE .COMPLEX 2 November 8:51am December 04, 2024 11:54am INJECT 0.5ml SUBCUTANEOUSLY (UNDER THE SKIN) ONCE A WEEKStart: 06-22-2024 End: 19-93-0593Wxlniixbznk (Trulicity) 0.75 mg/0.5 mL pen injector Discontinued 0.75 MG SUBCUT every week 2.5 30 June 22, 2024 12:00am June 22, 2024 11:05amfamotidine 20 mg oral tablet (20 sources)Histamine-2 Receptor AntagonistStart: 12-09-2022 End: 09-06-8110uuqcbsadzz (PEPCID) 20 mg tablet 12/09/2022 Activegabapentin 400 mg oral capsule (20 sources)Anti-epileptic AgentStart: 01-14-2025 End: 25-73-4605zyzr 1 capsule by mouth in the morning, then take 1 capsule by mouth in the evening, then take 1 capsule by mouth at bedtimegabapentin (Neurontin) 100 MG capsule Indications: Paresthesia Take 1 capsule (100 mg) by mouth in the morning and 1 capsule (100 mg) in the evening and 1 capsule (100 mg) before bedtime. 270 capsule2 02/14/2025 ActiveStart: 26-57-8622eewz 1 capsule by mouth once dailyGabapentin 100 mg capsule Active 100 MG PO Daily October 16, 2024 1:00am Complies with drug therapyStart: 09-10-2024 End: 08-12-5747rtnl 1 capsule by mouth three times daily in the morning gabapentin (Neurontin) 100 MG capsule Indications: Paresthesia Take 1 capsule (100 mg) by mouth in the morning and 1 capsule (100 mg) in the evening and 1 capsule (100 mg) before bedtime. In additionto 400mg TID. 90 capsule 1 09/10/2024 09/10/2024 Discontinued (Reorder)Start: 97-59-1736Lpchiwvpuc 300 mg capsule Active 400 MG PO Three times daily May 03, 2024 8:40am Complies with drug therapyStart: 04-12-2024 End: 32-20-9533clbe 1 capsule by mouth in the morning, then take 1 capsule by mouth in the evening, then take 1 capsule by mouth at bedtimegabapentin (Neurontin) 400 MG capsule Indications: Polyneuropathy Take 1 capsule (400 mg) by mouth in the morning and 1 capsule (400 mg) in the evening and 1 capsule (400 mg) before bedtime. 270 capsule 2 02/14/2025 02/14/2026 ActiveStart: 12-02-2023 End: 34-69-2753wccr 1 capsule by mouth three times dailyGabapentin 300 mg capsule Discontinued 300 MG PO Three times daily 90 30 December 02, 2023 10:57am May 03, 2024 8:40amhydrOXYzine pamoate 25 mg oral capsule (20 sources)AntihistamineStart: 41-04-4563salsQQWfips (VISTARIL) 25 mg capsule Take 1 capsule (25 mg total) by mouth as needed in the morningand 1 capsule (25 mg total) as needed at noon and 1 capsule (25 mg total) as needed in the evening.07/21/2021 ActiveStart: 07-21-2021 End: 95-85-3689ijjk 1 capsule by mouth twice daily as neededHydroxyzine Pamoate 25 mg capsule Discontinued 25 MG PO Twice daily as needed December 02, 2023 1:00am December 02, 2023 10:13amStart: 18-40-0700fmoj 1 capsule by mouth three times daily as neededhydrOXYzine (VISTARIL) 25 mg capsule Take 1 capsule (25 mg total) by mouth 3 (three) times a day asneeded. 07/21/2021 Activeisopropyl alcohol 0.7 ml/ml medicated pad (20 sources)Start: 62-31-3925NKCD TOUCH ALCOHOL PREP PADS pads, medicated 05/27/2020 Activelactase 3000 unt oral tablet (1 source)lactase (LACTAID) 3,000 unit tablet Take 1 tablet (3,000 Units total) by mouth as needed. Activelidocaine 0.05 mg/mg medicated patch (4 sources)Antiarrhythmic, Amide Local AnestheticStart: 89-30-3045pyvlp 1 dose topically once dailyLidocaine (Lidoderm) 5 % adhesive patch,medicated Active 1 PATCH TOPICAL Daily December 04, 2024 1:00am leave on most painful area for up to 12 hrs Complies with drug therapyStart: 12-23-2020 End: 88-42-3020fbifxzsfr PF 1 % injection 1 mLlisinopril 2.5 mg oral tablet (20 sources)Angiotensin Converting Enzyme InhibitorStart: 81-25-0058dxtr 1 tablet by mouth once dailyLisinopril 2.5 mg tablet Active 2.5 MG PO Daily December 02, 2023 1:00am Complies with drug therapyloperamide hydrochloride 2 mg oral capsule (18 sources)Opioid Agonistloperamide (Imodium) 2 MG capsule Activemeloxicam 15 mg oral tablet (18 sources)Nonsteroidal Anti-inflammatory Drugmeloxicam (Mobic) 15 MG tablet Active End: 96-35-3797Olavjpjwr (MOBIC PO) Take by mouth daily Patient does not know dose. 0 12/22/2020 Discontinued (LIST CLEANUP)Meloxicam (MOBIC PO) Take by mouth daily Patient does not know dose. 0 ActivemetFORMIN hydrochloride 1000 mg oral tablet (1 source)Biguanidetake 2 tablets by mouth once at mealtimemetFORMIN (GLUCOPHAGE) 1000 MG tablet Indications: for type 2 diabetes per patient Take 1,000 mg bymouth 2 times daily (with meals) Indications: for type 2 diabetes per patient 0 Qradwu64 hr mirabegron 50 mg extended release oral tablet (20 sources)beta3-Adrenergic AgonistStart: 50-55-0455rnui 1 tablet by mouth once dailyMirabegron (Myrbetriq) 50 mg tablet extended release 24 hr Active 50 MG PO Daily December 02, 2023 1:00am Complies with drug therapyStart: 65-39-6251lpba 1 tablet by mouth every twenty-four hours in the morningMYRBETRIQ 50 mg tablet extended release 24 hr Take 1 tablet (50 mg total) by mouth in the morning. 0 11/13/2021 Activemultivit-minerals/folic acid (MULTIVITAMIN GUMMIES ORAL) (1 source)take 1 tablet by mouth in the morningmultivit-minerals/folic acid (MULTIVITAMIN GUMMIES ORAL) Take 1 tablet by mouth in the morning. Active mupirocin 0.02 mg/mg topical ointment (7 sources)RNA Synthetase Inhibitor AntibacterialStart: 75-05-4869Owkedckrn 2 % ointment Active 1 APPLIC TOPICAL Twice daily 23 04June 10, 2025 12:00am Complies with drug therapyStart: 10-16-2024 End: 83-58-9179Fhqwgoeuj 2 % ointment Discontinued 1 APPLIC TOPICAL Twice daily 16 04October 16, 2024 1:00am April 17, 2025 1:22pmStart: 05-03-2024 End: 94-24-1012Ivmmssoku 2 % ointment Discontinued 1 APPLIC TOPICAL Twice daily 23 04May 03, 2024 12:00am 2024 1:22pmnaproxen sodium 220 mg oral capsule (1 source)Nonsteroidal Anti-inflammatory Drugnaproxen sodium (ALEVE) 220 mg capsule Take 1 capsule (220 mg total) by mouth as needed. Activeomeprazole 40 mg delayed release oral capsule (20 sources)Proton Pump InhibitorStart: 11-23-2022 End: 55-55-2768dhce 1 capsule by mouth once dailyomeprazole (PriLOSEC) 40 mg capsule Take 1 capsule (40 mg total) by mouth nightly. 11/23/2022 Active omeprazole (PriLOSEC) [address] capsule Activetake 1 capsule by mouth once daily omeprazole (PRILOSEC) 10 MG delayed release capsule Take 10 mg by mouth daily 0 Activeondansetron 4 mg oral tablet (15 sources)Serotonin-3 Receptor Antagonistondansetron (Zofran) 4 MG tablet Icdvvt19 hr oxybutynin chloride 10 mg extended release oral tablet (20 sources)Cholinergic Muscarinic AntagonistStart: 07-48-1805nzke 1 tablet by mouth every twenty-four hours in the morningoxybutynin XL (DITROPAN-XL) 10 mg 24 hr tablet Take 1 tablet (10 mg total) by mouth in the morning.05/28/2025 Active Start: 12-02-2023 End: 49-82-5683lize 1 tablet by mouth twice dailyOxybutynin Chloride 10 mg tablet extended release 24hr Discontinued 10 MG PO Twice daily December 1:00am December 02, 2023 10:13amStart: 50-10-3428vrvyxiktli XL (Ditropan-XL) 10 MG 24 hr tablet 09/23/2022 Activetake 1 tablet by mouth twice dailyoxybutynin (DITROPAN-XL) 10 MG extended release tablet Take 10 mg by mouth 2 times daily 0 ActiveOzempic, 1 MG/DOSE, 4 MG/3ML solution pen-injector (15 sources)Start: 83-38-5600ugfeie 1 [IU] by subcutaneous injection every week Ozempic, 1 MG/DOSE, 4 MG/3ML solution pen-injector INJECT 1 UNITS DOSE SUBCUTANEOUSLY ON TUESDAY OF EACH WEEK 04/19/2023 ActivepredniSONE 10 mg oral tablet (11 sources)Start: 73-26-4774uwhtfhWRGU (Deltasone) 10 MG tablet Indications: Capsulitis of right foot , Sprain of ligament of tarsometatarsal joint of right foot, sequela , Pain in joint of right foot , Difficulty walking 1 tablet twice daily x 7 days; followed by 1 tablet daily as directed until complete 21 tablet 07/20/20247570Fubiwb86 hr pseudoephedrine hydrochloride 120 mg extended release oral tablet (15 sources)alpha-Adrenergic Agonistpseudoephedrine ER (Sudafed-12 Hour) 120 MG 12 hr tablet ActiveQUEtiapine 100 mg oral tablet (18 sources)Atypical AntipsychoticStart: 06-02-2020 End: 56-07-4035gshm 1 tablet by mouth once daily, then take 0.5 tablet by mouth once dailyQUEtiapine (SEROquel) 100 mg tablet nightly. Takes 1 and a 1/2 tablets by mouth Daily 0 06/02/2020 ActiveSemaglutide (1 source)Start: 07-81-8425qifyii 1 mg by subcutaneous injection every week Semaglutide Active 1 MG SUBCUT every week 1.875 February 09, 2024 2:21pm sertraline 100 mg oral tablet (20 sources)Serotonin Reuptake InhibitorStart: 59-89-2333hytk 2 tablets by mouth in the morningsertraline (ZOLOFT) 100 mg tablet Take 2 tablets (200 mg total) by mouth in the morning. 07/21/2021ctiveStart: 45-22-6236musc 1 tablet by mouth in the morningsertraline (ZOLOFT) 100 mg tablet Take 1 tablet (100 mg total) by mouth in the morning. 07/21/2021 Activetake 1 tablet by mouth once daily sertraline (ZOLOFT) 50 MG tablet Take 50 mg by mouth daily 0 ActiveSITagliptin 100 mg oral tablet (20 sources)Dipeptidyl Peptidase 4 InhibitorStart: 03-08-2024 End: 31-40-0008vcwd 1 tablet by mouth once dailySitagliptin Phosphate (Januvia) 100 mg tablet Discontinued 0 .ROUTE .COMPLEX 90 March 08, 2024 3:57pm April 13, 2024 12:42pm take 1 tablet by mouth once dailyStart: 12-02-2023 End: 71-37-2179zotk 1 tablet by mouth twice dailySitagliptin Phosphate (Januvia) 50 mg tablet Discontinued 50 MG PO Twice daily December 02, 2023 1:00am December 02, 2023 10:11amStart: 09-21-2023 End: 78-54-7281vcgc 1 tablet by mouth in the morningJANUVIA 100 mg tablet Take 1 tablet (100 mg total) by mouth in the morning. 09/21/2023 Activetake 2 tablets by mouth once dailySITagliptin (Januvia) 50 MG tablet Take 100 mg by mouth Daily ActivetiZANidine 2 mg oral tablet (3 sources)Central alpha-2 Adrenergic AgonistStart: 45-84-8941afrb 1 tablet by mouth every eight hours as neededTizanidine 2 mg tablet Active 2 MG PO Every 8 hours as needed for muscle spasticity 30 May 03, 2024 12:00am Complies with drug therapytraMADol hydrochloride 50 mg oral tablet (1 source)Opioid AgonistStart: 12-22-2020 End: 69-70-7072xwyf 1 tablet by mouth every six hours as needed for paintraMADol (ULTRAM) 50 MG tablet Indications: Post-op pain Take 1 tablet by mouth every 6 hours as needed for Pain for up to 10 days. 10 tablet 0 12/22/2020 01/01/2021 ActivetraZODone hydrochloride 50 mg oral tablet (20 sources)Serotonin Reuptake InhibitorStart: 05-46-0425zrli 1 tablet by mouth once daily at bedtimeTrazodone 50 mg tablet Active 50 MG PO Daily at bedtime December 02, 2023 1:00am Complies with drug therapyTurmeric extract (15 sources)Turmeric powder ActiveTurmeric powder as directed Active Completed/Discontinued Medications MedicationDrug Class(es)DatesSig (Normalized)Sig (Original)hydroCHLOROthiazide 25 mg oral tablet (20 sources)Thiazide DiureticStart: 12-02-2023 End: 37-56-6882hesm 1 tablet by mouth once dailyHydrochlorothiazide 25 mg tablet Discontinued 25 MG PO Daily September 04, 2024 8:45am March 04, 2025 8:00amtake 2 capsules by mouth once daily in the morninghydroCHLOROthiazide (MICROZIDE) 12.5 mg capsule Take 2 capsules (25 mg total) by mouth every morning . ActivehydroCHLOROthiazide (MICROZIDE) 12.5 mg capsule Activelevothyroxine sodium 0.05 mg oral tablet (20 sources)l-ThyroxineStart: 12-02-2023 End: 11-54-0657dlfy 1 tablet by mouth once dailyLevothyroxine 50 mcg tablet Discontinued 50 MCG PO Daily September 04, 2024 8:45am March 04, 2025 8:00ammontelukast 10 mg oral tablet (20 sources)Leukotriene Receptor AntagonistStart: 12-02-2023 End: 84-96-9444jaue 1 tablet by mouth once dailyMontelukast 10 mg tablet Discontinued 10 MG PO Daily December 02, 2023 10:56am December 12, 2024 11:32amnitrofurantoin, macrocrystals 25 mg / nitrofurantoin, monohydrate 75 mg oral capsule (19 sources)Nitrofuran AntibacterialStart: 02-09-2024 End: 17-88-3385txjh 1 capsule by mouth twice daily at mealtimeNitrofurantoin Monohyd/M-Cryst (Macrobid) 100 mg capsule Discontinued 100 MG PO Twice daily 07 07February 09, 2024 12:00am February 28, 2024 10:18am must administer with a meal/food take 1 capsule by mouth every twelve hours at mealtimenitrofurantoin, macrocrystal-monohydrate, (Macrobid) 100 MG capsule TAKE 1 CAPSULE BY MOUTH EVERY 12 HOURS WITH FOOD ActiveSemaglutide (4 sources)Start: 12-02-2023 End: 43-02-2160gbghok 1 mg by subcutaneous injection every weekSemaglutide (Ozempic) 1 mg/dose (4 mg/3 mL) pen injector Discontinued 1 MG SUBCUT every week December 02, 2023 1:00am February 09, 2024 2:23pmSemaglutide (12 sources)Start: 05-30-2024 End: 15-54-3964jubyup 2 mg by subcutaneous injection every weekSemaglutide (Ozempic) 2 mg/dose (8 mg/3 mL) pen injector Discontinued 0 .ROUTE .COMPLEX May 30, 2024 10:38am June 19, 2024 10:18am INJECT 2mg SUBCUTANEOUSLY (UNDER THE SKIN) ONCE A WEEKStart: 05-30-2024 End: 44-78-5994ncirkb 2 mg by subcutaneous injection every weekSemaglutide 2 mg/dose (8 mg/3 mL) pen injector Discontinued 2 MG SUBCUT every week 3.75 May 30, 2024 7:51am May 30, 2024 10:38amStart: 04-17-2024 End: 26-26-7575mbpsug 2 mg by subcutaneous injection every weekSemaglutide 2 mg/dose (8 mg/3 mL) pen injector Discontinued 2 MG SUBCUT every week 3.75 April 17, 2024 10:09am May 30, 2024 7:51amStart: 02-09-2024 End: 87-36-2819aslwnn 2 mg by subcutaneous injection every weekSemaglutide 2 mg/dose (8 mg/3 mL) pen injector Discontinued 1 MG SUBCUT every week 1.875 February 09, 2024 2:21pm April 17, 2024 10:09amTirzepatide (3 sources)Start: 06-19-2024 End: 27-37-7725Jvmvisntywh (Mounjaro) 5 mg/0.5 mL pen injector Discontinued 5 MG SUBCUT every week June 19, 2024 12:00am June 22, 2024 9:45am Tirzepatide (Weight Loss) (6 sources)Start: 12-12-2024 End: 05-50-4666Acohtevwnqw (Weight Loss) (Zepbound) 2.5 mg/0.5 mL pen injector Discontinued 2.5 MG SUBCUT every week 2 December 12, 2024 11:33am April 17, 2025 1:21pm for 4 weeksStart: 12-04-2024 End: 09-10-8363Gpdnoukjkvq (Weight Loss) (Zepbound) 2.5 mg/0.5 mL pen injector Discontinued 2.5 MG SUBCUT every week December 04, 2024 1:00am December 12, 2024 11:33am for 4 weeks Problems Active Problems Problem ClassificationProblemDateDocumented DateEpisodic/ChronicAbdominal pain (4 sources)Unspecified abdominal pain; Translations: [UNSPECIFIED ABDOMINAL PAIN]Onset: 42-48-2012RkqjblphRflhkjkoczluhh/social admission (1 source)Dietary counseling and surveillance; Translations: [Dietary counseling and surveillance]Onset: 99-01-6111UrwpltgmHwehozv disorders (20 sources)Anxiety; Translations: [Anxiety disorder, unspecified]Onset: 598444-05-4611VsdvzdrLuyron (19 sources)Asthma; Translations: [Unspecified asthma, uncomplicated]Onset: 490272-76-3517LlxpbqyRbuqcrj ulcer of skin (20 sources)Non-pressure chronic ulcer of right heel and midfoot limited to breakdown of skin; Translations: [Ulcer of heel and midfoot]Onset: 07-29-2021 35-52-8929XkydujaUemyjlktfcaew disorders (20 sources)Developmental academic disorder; Translations: [Developmental disorder of scholastic skills, 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 Diabetes mellitus with complications (10 sources)Neuropathy due to diabetes mellitus; Translations: [Diabetes mellitus due to underlying condition with diabetic neuropathy, unspecified] 42-56-1479NnemzqnNmhoaxfs mellitus without complication (20 sources)Type 2 diabetes mellitus; Translations: [Type 2 diabetes mellitus without complications]Onset: 294014-68-1507BxorqppDmygtvcug of lipid metabolism (9 sources)Hyperlipidemia; Translations: [Hyperlipidemia, unspecified]12-02-2023 ChronicE Codes: Fall (1 source)Unspecified fall, initial encounter; Translations: [UNSPECIFIED FALL INITIAL ENCOUNTER]Onset: 79-61-6783EryweaymMykqyuwqjw disorders (3 sources)Gastroesophageal reflux disease; Translations: [Gastro-esophageal reflux disease without esophagitis]01-84-5744NergcvpFxffzdpdj hypertension (20 sources)Hypertensive disorder; Translations: [Essential (primary) hypertension]Onset: 290272-45-4404PcotyuiRhajmzblzpchc symptoms and ill- defined conditions (6 sources)Dysuria; Translations: [Painful micturition, unspecified]Onset: 951010-40-1154HminkgjmUcgbcdihmw disorders (1 source)Hormone replacement therapy; Translations: [HORMONE REPLACEMENT THERAPY]Onset: 23-19-2124YayqqyftTizefaasecgym mental health disorders (20 sources)Dissociative convulsions; Translations: [Conversion disorder with seizures or convulsions]Onset: 582906-48-6306TumahoxTgcj disorders (20 sources)Depressive disorder; Translations: [Depression]Onset: 07-29-2021 83-21-6347YfrmrrbPzjpj aftercare (1 source)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; Translations: [OTH ORE DRYER CURRENT DRUG THERAPY]Onset: 18-45-3018ZzpkpcbyWesns connective tissue disease (4 sources)Peripheral neuropathic pain; Translations: [Neuralgia and neuritis, unspecified]97-80-2851SrypguqhOjtil connective tissue disease (1 source)Neuralgia and neuritis, unspecified; Translations: [Mononeuritis of lower limb, unspecified]98-43-8861UfaengjfRwrpp connective tissue disease (4 sources)Pain in toe; Translations: [Pain in right toe(s)]08-72-6058Xepbmgts Other connective tissue disease (2 sources)Capsulitis; Translations: [Other enthesopathies, not elsewhere classified]02-70-1269XczzcxxuYgxbv lower respiratory disease (1 source)Pleurodynia; Translations: [PLEURODYNIA]Onset: 97-51-3432HfuaofqaJptok lower respiratory disease (20 sources)Dyspnea; Translations: [Shortness of breath]Onset: 05-03-2019 59-74-5563OsttvwmnIdmnd nervous system disorders (3 sources)Difficulty walking; Translations: [Difficulty in walking, not elsewhere classified]55-44-2006AwmfezzWsxic nervous system disorders (2 sources)Polyneuropathy; Translations: [Polyneuropathy, unspecified]01-16-2025 ChronicOther nervous system disorders (1 source)Postoperative pain ; Translations: [Post-op pain]EpisodicOther nervous system disorders (7 sources)Paresthesia; Translations: [Paresthesia of skin]47-20-3285Gtpdzfdu Other non-traumatic joint disorders (2 sources)Pain of joint of right foot; Translations: [Pain in right ankle and joints of right foot]86-74-1945CxiwmhhzXmcsi nutritional; endocrine; and metabolic disorders (20 sources)Morbid obesity; Translations: [Morbid (severe) obesity due to excess calories]Onset: 976672-78-9736MqvlkrfWfojb nutritional; endocrine; and metabolic disorders (3 sources)Severe obesity; Translations: [Morbid (severe) obesity due to excess calories]Onset: 298762-70-4646InsjbbzXzmdf nutritional; endocrine; and metabolic disorders (7 sources)Body mass index 40+ - severely obese; Translations: [Body mass index (BMI) 50.0-59.9, adult]06-97-4380CkhyohjDrfhh nutritional; endocrine; and metabolic disorders (3 sources)Morbid (severe) obesity due to excess calories; Translations: [Morbid (severe) obesity due to excess calories]Onset: 56-75-2873IlhtloeYddwr screening for suspected conditions (not mental disorders or infectious disease) (4 sources)Patient encounter status; Translations: [Encounter for screening mammogram for malignant neoplasm of breast]Onset: 654599-37-5953Woncpift Other skin disorders (2 sources)Dystrophia unguium; Translations: [Nail dystrophy]21-29-5036Dtesqjwz Other skin disorders (2 sources)Ingrowing nail; Translations: [Ingrowing nail]94-72-9619KatlotwzMiani skin disorders (2 sources)Lesion of scalp; Translations: [Disorder of the skin and subcutaneous tissue, unspecified]71-30-4639QigxdybcKotwh upper respiratory disease (8 sources)Seasonal allergy; Translations: [Other seasonal allergic rhinitis] 71-45-4880YhkgijgVnwhs upper respiratory disease (1 source)Other seasonal allergic rhinitis; Translations: [Allergic rhinitis, cause unspecified]51-73-6174YrpkvtlLmungcox codes; unclassified (13 sources)Obstructive sleep apnea syndrome; Translations: [Obstructive sleep apnea (adult) (pediatric)]65-60-4169TisaeakMpskzech codes; unclassified (3 sources)Obstructive sleep apnea (adult) (pediatric); Translations: [Obstructive sleep apnea (adult)(pediatric)]Onset: hronic Residual codes; unclassified (1 source)Sleep apneaOnset: 05-54-4797EuevqkqDnflldnzw and history of mental health and substance abuse codes (3 sources)Standardized adult depression screening tool completed ; Translations: [Encounter for screening fordepression]Onset: 950650-03-7185 EpisodicSprains and strains (9 sources)Strain of muscle, fascia and tendon of lower back, initial encounter; Translations: [Sprain of ligament of tarsometatarsal joint]Onset: 02-15-2023 85-73-2107JjlhxcbuRtenkpodvio injury; contusion (6 sources)Abrasion of forehead; Translations: [Abrasion of other part of head, initial encounter]09-25-7835PvxdthomLwppxae disorders (9 sources)Disorder of thyroid gland; Translations: [Disorder of thyroid, unspecified]89-91-1338KscfahaxYxzgyahvdibq (2 sources)New PatientOnset: 53-64-8852Hobrafpqclsd (1 source)Gynecologic ExamOnset: 19-98-8942Tkxrsswupmza (1 source)Z68.43 - Body mass index [BMI] 50.0-59.9, adult,E11.9 - Type 2 diabetes mellitus without complications,I10 - Essential (primary) hypertension,G47.33 - Obstructive sleep apnea (adult) (pediatric)Unclassified (1 source)Nutrition CounselingOnset: 90-70-1561Ivawpkv tract infections (5 sources)Urinary tract infectious disease; Translations: [Urinary tract infection, site not specified]08-37-2503Unkgzgjf Past or Other Problems Problem ClassificationProblemDateDocumented DateEpisodic/ChronicContraceptive and procreative management (3 sources)Sterilization requested; Translations: [Encounter for sterilization] 78-64-6972WgougdofEbyi disorders (20 sources)Mood disordersOnset: 09-11-2021 Resolved: 671925-08-4006Lnjel lower respiratory disease (1 source)Shortness of breath; Translations: [Shortness of breath]Onset: 90-73-7162XrepfimgEhjrfepslnox (20 sources)Onset: 02-06-2024 Resolved: 745448-01-0450 Results Test NameValueInterpretationReference RangeFacilityPOCT EKGon 07-15-2025 [facility] HospitalZigswitchTwo [facility] SystemXR CHEST 2 VWSon 51-53-1944QN CHEST 2 VWSXR CHEST 2 VWS XR CHEST 2 VWS Clinical Information: Intermittent asthma, unspecified asthma severity, unspecified whether complicated Comparison: 03/14/2019. IMPRESSION: * No acute cardiopulmonary disease. * Calcification overlying the right shoulder possibly calcific tendinitis measuring 1.2 cm. Finalized by Chivo Lopez MD on 05/30/2025 3:41 PMNormalProMedica Northbay Vacavalley HospitalBasophils Auto (Bld) [#/Vol]Ordered By: Charlene Cardenas on 05-29-2025 Basophils (Bld) [#/Vol]0.0 10 3/uL0.0-0.1FCommunity Regional Medical Center Basophils/100 WBC Auto (Bld)Ordered By: Charlene Cardenas on 35-37-5589Srreyakpz/100 WBC (Bld)0.2 %0.2-2.0[facility] HospitalEosinophils/100 WBC Auto (Bld)Ordered By: Charlene Cardenas on 42-50-0344Tdfsckyznlj/100 WBC (Bld)0.6 %Low 0.9-7.0[facility] HospitalErythrocyte distribution width Auto (RBC) [Ratio]Ordered By: Charlene Cardenas on 26-16-2273Msbkmgwuztz distribution width (RBC) [Ratio]13.7 %11.0-15.0[facility] HospitalGlobulin Calc (S) [Mass/Vol]Ordered By: Charlene Cardenas on 86-56-5131Zwqucjsc (S) [Mass/Vol]4.3 g/dL [facility] HospitalGlucose mean value [Mass/volume] in Blood Estimated from glycated hemoglobinOrdered By: Lizbeth Snyder on 05-29-2025 Average glucose Estimated from glycated hemoglobin (Bld) [Mass/Vol]108 mg/dL [facility] HospitalHematocrit Auto (Bld) [Volume fraction]Ordered By: Charlene Cardenas on 82-67-8548Uswjwbrxui (Bld) [Volume fraction]39.1 %36.0-48.0 [facility] HospitalHemoglobin A1c percentageOrdered By: Lizbeth Snyder on 92-28-3919YbC5m (Bld) [Mass fraction]5.4 %4.5-6.2FCommunity Regional Medical CenterComment on above:ADA RECOMMENDED LIMIT 4.0 - 6.0ADA THERAPEUTIC TARGET < 7.0ACTION SUGGESTED> 7.0Hemoglobin [Mass/volume] in Blood Ordered By: Charlene Cardenas on 78-00-2849Hgcbvqndds (Bld) [Mass/Vol]12.5 g/dL 12.0-16.0[facility] HospitalLaboratory - Chemistry and Chemistry - challengeOrdered By: Charlene Cardenas on 55-92-3645Kraxjkq [Mass/Vol]3.8 g/dL3.4-5.0 [facility] HospitalALP [Catalytic activity/Vol]91 U/L46-116 [facility] HospitalALT [Catalytic activity/Vol]37 U/L14-59 [facility] HospitalAST [Catalytic activity/Vol]22 U/L15-37 [facility] HospitalBilirubin [Mass/Vol]0.5 mg/dL0.2-1.0[facility] HospitalBilirubin.direct [Mass/Vol]0.1 mg/dL0.0-0.2FCommunity Regional Medical CenterCobalamin (Vitamin B12) [Mass/Vol]687 pg/wE086-1196 [facility] HospitalComment on above:Performed at: - Labco[address] [id number] Director: Heath Reyes PhD, Phone: [phone] [Mass/Vol]57.0 ug/dL50.0-170.0[facility] HospitalProtein [Mass/Vol]8.1 g/dL6.4-8.2FCommunity Regional Medical CenterTSH Qn 2.393 m[IU]/L0.358-3.740Pro[facility] HospitalLaboratory - Hematology and Cell countsOrdered By: Charlene Cardenas on 20-48-5022Hqkiasld granulocytes/100 WBC (Bld)0.2 %0.0-0.5FCommunity Regional Medical CenterLeukocytes [#/volume] corrected for nucleated erythrocytes in Blood by Automated counOrdered By: Charlene Cardenas on 63-59-4093LSW corrected for nucl RBC Auto (Bld) [#/Vol]8.0 10 3/uL 4.0-11.0[facility] HospitalLymphocytes Auto (Bld) [#/Vol]Ordered By: Charlene Cardenas on 17-97-0263Nswvhsdxouf (Bld) [#/Vol]2.1 10 3/uL1.2-3.8 [facility] HospitalLymphocytes/100 WBC Auto (Bld)Ordered By: Charlene Cardenas on 01-74-9451Qjumgeojdup/100 WBC (Bld)25.6 %20.5-60.0[facility] Auto (RBC) [Entitic mass]Ordered By: Charlene Cardenas on 05-29-2025 MCH (RBC) [Entitic mass]25.9 pgLow26.7-34.0[facility] HospitalMCHC Auto (RBC) [Mass/Vol]Ordered By: Charlene Cardenas on 39-75-5142HYZO (RBC) [Mass/Vol] 32.0 g/dL29.9-35.2FCommunity Regional Medical CenterMCV Auto (RBC) [Entitic vol] Ordered By: Charlene Cardenas on 94-49-9464SJD (RBC) [Entitic vol]81.1 fL81.0-99.0 [facility] HospitalMonocytes Auto (Bld) [#/Vol]Ordered By: Charlene Cardenas on 72-74-1150Kldnznwti (Bld) [#/Vol]0.4 10 3/uL0.3-0.8[facility] HospitalMonocytes/100 WBC Auto (Bld)Ordered By: Charlene Cardenas on 05-29-2025 Monocytes/100 WBC (Bld)5.4 %1.7-12.0[facility] HospitalNeutrophils Auto (Bld) [#/Vol]Ordered By: Charlene Cardenas on 07-26-4658Erohqbmxhxq (Bld) [#/Vol]5.5 10 3/uL1.4-6.5FCommunity Regional Medical CenterNeutrophils/100 WBC Auto (Bld)Ordered By: Charlene Cardenas on 20-09-5904Ovjrpdiompr/100 WBC (Bld)68.0 % 43.0-75.0[facility] HospitalNo Panel InformationOrdered By: Charlene Cardenas on 435518-Nvxbxvh Vitamin D Total61.0 ng/mLProtestant HospitalComment on above:<20 ng/mL Vit D expkbqlno87-<30 ng/mL Vit D -515 ng/mL Vit D sufficient>100 ng/mL Potential Toxicity Eosinophils # (Auto)0.1 10 3/uL0.0-0.7FCommunity Regional Medical CenterImmature Granulocyte # (Auto)0.02 10 3/uL0.00-0.03[facility] Parathyroid Hormone (Intact)60 pg/cX71-26YwuuhooiiProtestant Hospital Comment on above:Performed at: - [address] [id number] Director: Heath Reyes PhD, Phone: [phone] mean volume Auto (Bld) [Entitic vol]Ordered By: Charlene Cardenas on 40-99-8060Nfodfjcc mean volume (Bld) [Entitic vol]9.8 fL9.5-13.5FCommunity Regional Medical Center Platelets Auto (Bld) [#/Vol]Ordered By: Charlene Cardenas on 66-03-8822Jfniumuyl (Bld) [#/Vol]355 10 3/kV589-248QxrpczwxjProtestant HospitalRBC Auto (Bld) [#/Vol]Ordered By: Charlene Cardenas on 26-25-6923FIL (Bld) [#/Vol]4.82 10 6/uL 4.20-5.40Tr[facility] Health System East Campuserum or plasma albumin/globulin mass ratioOrdered By: Charlene Cardenas on 68-45-7695Oxtyojw/Globulin [Mass ratio]0.9 {ratio}Protestant HospitalHIGH RISK HPV W/GENOon 48-39-0970FHW 16 NegativeNormalNegativeOhio State Harding Hospital Ambulatory PPGComment on above: Performed By: #### HPV #### [facility] ([facility]) [address] [place] [address] VIRHPV 18NegativeNormalNegativeOhio State Harding Hospital Ambulatory PPGComment on above:Performed By: #### HPV #### [facility] ([facility]) [address] [place] [address] VIROTHER HIGH RISK HPVNegativeNormalNegativeOhio State Harding Hospital Ambulatory PPGComment on above:Result Comment: HPV types 31, 33, 35, 39, 45, 52, 56, 58, 59, 66, and 68 DNA were undetectable.Performed By: #### HPV #### [facility] ([facility]) [address] [place] [address] VIRBasophils Auto (Bld) [#/Vol]Ordered By: Lizbeth Snyder on 29-56-6679Srciawzjw (Bld) [#/Vol]0.0 10 3/uL0.0-0.1FCommunity Regional Medical CenterBasophils/100 WBC Auto (Bld)Ordered By: Lizbeth Snyder on 04-17-2025 Basophils/100 WBC (Bld)0.3 %0.2-2.0[facility] HospitalCholesterol in LDL Calc [Mass/Vol]Ordered By: Lizbeth Snyder on 05-76-2474Ndadyghocex in LDL [Mass/Vol]97.0 mg/dLProtestant HospitalComment on above: <100 mg/dl DBLZAFR271-552 mg/dl NEAR OR ABOVE ZQEWCZQ331-540 mg/dl BORDERLINE NPCG951-247 mg/dl HIGH>190 mg/dl VERY HIGHCholesterol in VLDL Calc [Mass/Vol] Ordered By: Lizbeth Snyder on 91-77-3328Xjztjbqfniz in VLDL [Mass/Vol]25.0 mg/dLProtestant HospitalEosinophils/100 WBC Auto (Bld)Ordered By: Lizbeth Snyder on 00-40-3027Onjppwvztlq/100 WBC (Bld)0.8 %Low0.9-7.0 [facility] HospitalErythrocyte distribution width Auto (RBC) [Ratio]Ordered By: Lizbeth Snyder on 90-37-6935Exnouksxzkj distribution width (RBC) [Ratio]14.1 %11.0-15.0Pro[facility] HospitalGlobulin Calc (S) [Mass/Vol]Ordered By: Lizbeth Snyder on 67-55-9982Jottesjt (S) [Mass/Vol]3.9 g/dLProtestant HospitalGlomerular filtration rate (GFR) estimation in non- AmericanOrdered By: Lizbeth Snyder on 85-87-6689TLJ/1.73 sq M.predicted among non-blacks MDRD (S/P/Bld) [Vol rate/Area]mL/min/{1.73_m2}>=60 mL/min/1.73m 2FCommunity Regional Medical Center HbA1c HPLC (Bld) [Mass fraction]Ordered By: Lizbeth Snyder on 04-17-2025 HbA1c (Bld) [Mass fraction]5.4 %Pro[facility]ant HospitalHematocrit Auto (Bld) [Volume fraction]Ordered By: Lizbeth Snyder on 11-97-8666Uriclhambq (Bld) [Volume fraction]37.7 %36.0-48.0[facility] Hemoglobin [Mass/volume] in BloodOrdered By: Lizbeth Snyder on 04-17-2025 Hemoglobin (Bld) [Mass/Vol]12.0 g/dL12.0-16.0[facility] Laboratory - Chemistry and Chemistry - challengeOrdered By: Lizbeth Snyder on 05-73-3309Modrwgp [Mass/Vol]3.4 g/dL3.4-5.0[facility] ALP [Catalytic activity/Vol]76 U/J25-848ZsnvdnpwwProtestant HospitalALT [Catalytic activity/Vol]25 U/C33-87FqqqkmbvsProtestant HospitalAST [Catalytic activity/Vol]15 U/U11-07FqkcmsuydProtestant HospitalBilirubin [Mass/Vol]0.3 mg/dL0.2-1.0Pro[facility] HospitalCalcium [Mass/Vol]9.0 mg/dL8.5-10.1FCommunity Regional Medical CenterChloride [Moles/Vol]102 mmol/L 98-107Pro[facility] HospitalCholesterol [Mass/Vol]165 mg/dL<=200 [facility] HospitalCholesterol in HDL [Mass/Vol]43 mg/dL40-60 [facility] HospitalComment on above:> or =60 mg/dl - LOW CARDIOVASCULAR RISK<40 mg/dl - HIGH CARDIOVASCULAR RISKCO2 [Moles/Vol]29.7 mmol/L21.0-32.0Pro[facility] HospitalCreatinine [Mass/Vol]0.60 mg/dL 0.55-1.02Protestant HospitalFree T4 [Mass/Vol]1.10 ng/dL0.76-1.46 [facility] HospitalGFR/1.73 sq M.predicted MDRD (S/P/Bld) [Vol rate/Area]mL/min/{1.73_m2}>=60 mL/min/1.73m 2FCommunity Regional Medical Center Glucose [Mass/Vol]89 mg/cZ06-753OkibhnpfjProtestant HospitalPotassium [Moles/Vol]4.3 mmol/L3.5-5.1FCommunity Regional Medical CenterProtein [Mass/Vol] 7.3 g/dL6.4-8.2FDoctors Hospitalodium [Moles/Vol]139 mmol/L 136-145Protestant HospitalTriglyceride [Mass/Vol]125 mg/dL<=150 [facility] HospitalTSH Qn4.615 m[IU]/LHigh0.358-3.740Pro[facility] HospitalUrea nitrogen [Mass/Vol]13.0 mg/dL7.0-18.0Pro[facility]ant HospitalUrea nitrogen/Creatinine [Mass ratio]21.7 mg/mgProtestant HospitalLaboratory - Hematology and Cell countsOrdered By: Lizbeth Snyder on 80-75-5471Temgcekp granulocytes/100 WBC (Bld)0.8 %High 0.0-0.5FCommunity Regional Medical CenterLeukocytes [#/volume] corrected for nucleated erythrocytes in Blood by Automated counOrdered By: Lizbeth Snyder on 57-81-2754QUU corrected for nucl RBC Auto (Bld) [#/Vol]9.2 10 3/uL4.0-11.0 [facility] HospitalLymphocytes Auto (Bld) [#/Vol]Ordered By: Lizbeth Snyder on 94-73-0353Dkvqqjarsvo (Bld) [#/Vol]2.3 10 3/uL1.2-3.8 [facility] HospitalLymphocytes/100 WBC Auto (Bld)Ordered By: Lizbeth Snyder on 52-61-4955Hqbtgkszsxz/100 WBC (Bld)24.9 %20.5-60.0 [facility] Auto (RBC) [Entitic mass]Ordered By: Lizbeth Snyder on 64-63-3508ESJ (RBC) [Entitic mass]26.0 pgLow26.7-34.0 [facility] HospitalMCHC Auto (RBC) [Mass/Vol]Ordered By: Lizbeth Snyder on 72-14-6203JRDH (RBC) [Mass/Vol]31.8 g/dL29.9-35.2FCommunity Regional Medical CenterMCV Auto (RBC) [Entitic vol]Ordered By: Lizbeth Snyder on 42-38-2929JLJ (RBC) [Entitic vol]81.8 fL81.0-99.0Pro[facility] HospitalMonocytes Auto (Bld) [#/Vol]Ordered By: Lizbeth Snyder on 48-84-3321Bntiwempg (Bld) [#/Vol]0.6 10 3/uL0.3-0.8Pro[facility] HospitalMonocytes/100 WBC Auto (Bld)Ordered By: Lizbeth Snyder on 78-25-9577Jihqdgppm/100 WBC (Bld)6.2 %1.7-12.0Pro[facility]ant HospitalNeutrophils Auto (Bld) [#/Vol]Ordered By: Lizbeth Snyder on 75-36-5478Bnzsizzqmhk (Bld) [#/Vol]6.2 10 3/uL1.4-6.5FCommunity Regional Medical CenterNeutrophils/100 WBC Auto (Bld)Ordered By: Lizbeth Snyder on 22-57-2701Mhkckboxxcn/100 WBC (Bld)67.0 %43.0-75.0Pro[facility] HospitalNo Panel InformationOrdered By: Lizbeth Snyder on 04-17-2025 Eosinophils # (Auto)0.1 10 3/uL0.0-0.7FCommunity Regional Medical CenterImmature Granulocyte # (Auto)0.07 10 3/uLHigh0.00-0.03[facility] Platelet mean volume Auto (Bld) [Entitic vol]Ordered By: Lizbeth nSyder on 53-25-1443Pyegepfb mean volume (Bld) [Entitic vol]9.3 fLLow9.5-13.5FCommunity Regional Medical CenterPlatelets Auto (Bld) [#/Vol]Ordered By: Lizbeth Snyder on 37-39-5318Hikaypadn (Bld) [#/Vol]325 10 3/fS374-008AgbhzycpfProtestant HospitalRBC Auto (Bld) [#/Vol]Ordered By: Lizbeth Snyder on 96-24-0044CGT (Bld) [#/Vol]4.61 10 6/uL4.20-5.40[facility] System East Campuserum or plasma albumin/globulin mass ratioOrdered By: Lizbeth Snyder on 08-88-8396Kfvhorc/Globulin [Mass ratio]0.9 {ratio}[facility] East Campuserum or plasma anion gap determinationOrdered By: Lizbeth Snyder on 86-57-6624Vlvbw gap [Moles/Vol]11.6 mmol/LFDoctors Hospitalerum or plasma total cholesterol/high density lipoprotein (HDL) cholesterol mass rat Ordered By: Lizbeth Snyder on 65-52-2256Ftrfuckzdbq.total/Cholesterol in HDL [Mass ratio]3.8 {ratio}[facility] HospitalComment on above:3.3 - 4.4 LOW RISK4.4 - 7.1 AVERAGE RISK7.1 - 11.0 MODERATE RISK>11.0 HIGH RISK Consultation/Specialist Noteon 39-93-3739Swbghgefsgan/Specialist Note [id number]#1.00GTProvidence HospitalXR Foot - right 3 Viewson 22-66-5614Ozwcfwk Result: 3 views right foot: Weight- bearing: DP, oblique, lateral: 07/20/2024: Unremarkable for acute osseous or joint pathology. Unremarkable for fracture or stress fracture changes.[facility] HealthRadiology Study observation (narrative)[facility] CenterPOCT , urineon 66-48-8769Wwms HCG ( test) Ql (U)NegativeMartin Memorial HospitalInternal Memorial Counselor Check Completed and PassedYeSelect Medical Specialty Hospital - [facility] NorthInterpretation and review of laboratory resultsNoFormerly named [facility] SystemUrine Cultureon 11-14-6788Cstocbbi identified Cx Nom (U)>100,000 colonies/ml mixed bacterial skin contaminants 2 Days PERFORMED BY: [place] [address] PATHOLOGIST PRINTING WORKER SUPERVISOR SHARYN ESPINAL M.D.NormalThe [facility] Physician GroupComment on above:Performed By: #### CUU #### [place] [id number] USACT ABD/PELVIS WO CONon 87-84-2148FK ABD/PELVIS WO CON CLINICAL HISTORY: Mid to lower back pain, radiating into the [...] Electronically authenticated by: ANDREINA DHILLON Date: 2023-02-13 21:36[facility] WO CONon 54-20-9725UF [facility] CONCT LUMBAR SPINE WITHOUT CONTRAST, 02/13/2023 6:09 PM [...] Electronically authenticated by: Kalli RANGEL Date: 2023-02-13 20:09[facility] CenterXR RIBS RT PA [place] 76-17-3290KV RIBS RT PA CHEXAM: XR RIBS RT PA CH HISTORY: Pain COMPARISON: Chest x-ray 02/18/2020 TECHNIQUE: 5 view study FINDINGS: Right ribs show normal architecture. The right lung is well expanded. No pneumothorax. IMPRESSION: No evidence for acute right rib fracture. Electronically authenticated by: Kalli RANGEL Date: 2023-02-13 20:26[facility] SystemARS-CoV-2on 13-58-5775MNNQ-CoV-2,RapidNot DetectedNormalNOTDEHocking Valley Community HospitalComment on above:Result Comment: Rapid NAAT: The specimen is NEGATIVE [...] management decisions. Fact sheet for Healthcare Providers: https://www.fda.gov/media/215040/download Fact sheet for Patients: https://www.fda.gov/media/089192/download Methodology: Isothermal Nucleic Acid AmplificationPerformed By: #### COVRB #### [facility] [address] [place] [address] Label Sewer: Hussain Saldivar MDFLUORO FOR SURGICAL PROCEDURESon 12-22-2020 FLUORO FOR SURGICAL PROCEDURESRadiology exam is complete. No Radiologist dictation. Please follow up with ordering provider. Final resultNormalSelect Medical Specialty Hospital - Columbus SouthRadiology exam is complete. No Radiologist dictation. Please follow up with ordering provider.[employer] Mobile Phone: HCJ Screen, Bloodon 86-72-1616JHG QnNegativeNormalNEG [facility] SouthComment on above:Result Comment: Specimens with hCG levels near the threshold of the test (25 mIU/mL) may give a negative or indeterminate result. In such cases, another test should be performed with a new specimen in 48-72 hours. If early is suspected clinically in this setting, correlation with quantitative serum b-hCG level is suggested.Performed By: #### HCG #### [facility] [address] [place] [address] Label Sewer: Darian Knutson MDHCG, SERUM, QUALITATIVEon 82-63-0534mDL Qual NegativeNEGATIVEDoodle Mobile Phone: comment on above:Specimens with hCG levels near the threshold of the test (25 mIU/mL) may give a negative or indeterminate result. In such cases, another test should be performed with a new specimen in 48-72 hours. If early is suspected clinically in this setting, correlation with quantitative serum b-hCG level is suggested. POC Glucose Fingerstickon 88-32-6690Nubxnau [Mass/Vol]89 mg/dL65 - 105 mg/dL [employer] Phone: Glucose [Mass/Vol]99 mg/dL65 - 105 mg/dLDoodle Mobile Phone: Operative Reporton [id number] ReportMR#: [id number] Pt. Name: Angela Ingram Room #: 0C Discharge Date: Birthdate: 1985 OPERATIVE REPORT DATE OF SURGERY: 10/09/2020 SURGEON: Tee Shahid M.D. PREOPERATIVE DIAGNOSIS: Triangular fibrocartilage complex tear, right wrist. POSTOPERATIVE DIAGNOSIS: Triangular fibrocartilage complex tear, right wrist. PROCEDURE: Arthroscopic examination and debridement of triangular fibrocartilage complex on the right wrist. TRICOT KNITTING MACHINE OPERATOR: Oracio Ibanez M.D. ANESTHESIA: Regional with [...] Shahid M.D. Date Trans: 10/09/2020 11:19 A/porter DN_JN:[id number] cc: Ingrid Culver C.N.P. [address] [facility] [place] [address]UsbibcOzgUniversity Hospitals Conneaut Medical CenterPO GLUCOSE LABon 05-55-1064Oqlkcuy [Mass/Vol]100 mg/wYVfnsim18-309Mnc TriHealthComment on above:Performed By: #### [id number] #### [facility] [address] [place] [address], USAGlucose [Mass/Vol]111 mg/vRMmgr46-020Udm TriHealthComment on above:Performed By: #### [id number] #### [facility] [address] [place] [address], USACoding Summary.on 02-05-5329Ootfnk Summary.CODING DATE: 07/07/2020 FINAL [facility] STATUS: Home (Routine DC) PAYOR: Medicaid [...] Savanna Radford CphT Date Saved: 07/07/2020 02:39 pmNormalMercy Health Fairfield HospitalConsent for Treatmenton 21-30-6525Zgywjbj for Treatment [id number]#1.00CD:127NoOhioHealthMRI Wrist Arthrogram Righton 97-43-6982HCF Wrist Arthrogram RightExam Date/Time: 07/04/2020 11:16 EDT Reason for Exam: [...] Technical Comments MultiHance Contrast amount in ml's: 1NFostoria City HospitalRAD - Consent to Procedureon 18-20-6862HJG - Consent to Procedure [id number]:127NoOhioHealthRAD - MRI Screening Formon 05-50-6232GLX - MRI Screening Form [id number]#1.00CD:127Doctors HospitalXR Inj Wrist Arthrogram Righton 12-47-0465GR Inj Wrist Arthrogram Right Exam Date/Time: 07/04/2020 [...] 4 Radiation Dose: Ka,r in mGy = 0.7Doctors HospitalPhysician Orderon 40-06-4235Hrumcglai Order [id number]#1.00CD:127NoOhioHealthPOCT urine pregnancyon 83-46-3570Hsga HCG ( test) Ql (U)Negative [place] [facility] on above:Specimens with hCG levels near the threshold of the test (25 mIU/mL) may give a negative or indeterminate result. In such cases, another test should be performed with a new specimen in 48-72 hours. If early is suspected clinically in this setting, correlation with quantitative serum b-hCG level is suggested. Vital Signs Date TimeVital SignValuePerforming IsfdxjexpUctndogg20-06-2776 09:20-0400Body npcwpy739.1 cmMoSutter Medical Center, [place] [employer] Work Phone: [facility] HospitaleduFire10-13-2025 09:20-0400Body mass index (BMI) [Ratio]56.2 kg/r0HmsnwknStewart [facility] [employer] Work Phone: [facility]10-13-2025 09:20-0400Body jlantd917.37 kgMohamad Aguilaraja DO Work Phone: [facility] Medigram Pflwwr46-10-8875 09:20-0400Diastolic blood plneoioa06 mm[Hg]Malik Sheikhaja DO Work Phone: [facility]10-13-2025 09:20-0400Heart rate 65 /minMohamad Aguilaraja DO Work Phone: [facility]10-13-2025 09:20-0400Systolic blood pnwnezkp636 mm[Hg]Malik Blancoja DO Work Phone: [facility]09-08-2025 08:44-0400Body .86 cmTraekristian Snyder ADAPTIVE PHYSICAL EDUCATION SPECIALIST Work Phone: [phone]09-08-2025 08:44-0400 Body mass index (BMI) [Ratio]57.3 kg/l1Hddvmeaikristian Snyder ADAPTIVE PHYSICAL EDUCATION SPECIALIST Work Phone: [phone]09-08-2025 08:44-0400 Body vgeeakkopiv09.4 [degF]Lizbeth Claudio ADAPTIVE PHYSICAL EDUCATION SPECIALIST Work Phone: [phone]09-08-2025 08:44-0400 Body .82 kgLizbeth Claudio ADAPTIVE PHYSICAL EDUCATION SPECIALIST Work Phone: [phone]09-08-2025 08:44-0400 Diastolic blood zgwcszca62 mm[Hg]Lizbeth Claudio ADAPTIVE PHYSICAL EDUCATION SPECIALIST Work Phone: [phone]09-08-2025 08:44-0400 Heart rate83 /minLizbeth Snyder ADAPTIVE PHYSICAL EDUCATION SPECIALIST Work Phone: [phone]09-08-2025 08:44-0400 SaO2% (BldA) [Mass fraction]95 %Lizbeth Snyder ADAPTIVE PHYSICAL EDUCATION SPECIALIST Work Phone: [phone]09-08-2025 08:44-0400 Systolic blood snercago685 mm[Hg]Lizbeth Claudio ADAPTIVE PHYSICAL EDUCATION SPECIALIST Work Phone: [phone]09-05-2025 08:01-0400 Body ookcla068.1 [facility] Centerjerel Mcfadden LD Work Phone: [facility]09-05-2025 08:01-0400Body mass index (BMI) [Ratio]56.62 kg/m2Emvicente Mcfadden LD Work Phone: [facility]09-05-2025 08:01-0400Body xcrhet931.28 kgEmvicente BarnesMcfadden LD Work Phone: [facility]08-27-2025 13:06-0400Body uoxkrt205.86 cmLizbeth Claudio ADAPTIVE PHYSICAL EDUCATION SPECIALIST Work Phone: [phone]08-27-2025 13:06-0400 Body mass index (BMI) [Ratio]57.3 kg/y7Vrwlwqgvhamlet Snyder ADAPTIVE PHYSICAL EDUCATION SPECIALIST Work Phone: [phone]08-27-2025 13:06-0400 Body vbndkesjfpz63.3 [degF]Lizbeth Claudio ADAPTIVE PHYSICAL EDUCATION SPECIALIST Work Phone: [phone]08-27-2025 13:06-0400 Body nclosm060.82 kgAnayhamlet Snyder ADAPTIVE PHYSICAL EDUCATION SPECIALIST Work Phone: [phone]08-27-2025 13:06-0400 Diastolic blood aundpozm26 mm[Hg]Lizbeth Claudio ADAPTIVE PHYSICAL EDUCATION SPECIALIST Work Phone: [phone]08-27-2025 13:06-0400 Heart rfrw347 /minLizbeth Snyder ADAPTIVE PHYSICAL EDUCATION SPECIALIST Work Phone: [phone]08-27-2025 13:06-0400 SaO2% (BldA) [Mass fraction]97 %Lizbeth Claudio ADAPTIVE PHYSICAL EDUCATION SPECIALIST Work Phone: [facility]08-27-2025 13:06-0400 Systolic blood kzqmxpaw185 mm[Hg]Lizbeth Snyder APRN Work Phone: [facility]08-25-2025 09:03-0400 Body stsaqp384.1 cmKatherine Doss MD Work Phone: [phone]08-25-2025 09:03-0400Body mass index (BMI) [Ratio]56.48 kg/e6DxrxybsKatherine Doss MD Work Phone: [phone]08-25-2025 09:03-0400Body .96 kgKatherine Doss MD Work Phone: [phone]08-25-2025 09:03-0400Diastolic blood qnllevnq95 mm[Hg]Katherine Doss MD Work Phone: [phone] [place], [place] 7932208-25-2025 09:03-0400Heart rate 75 /minKatherine Doss MD Work Phone: [phone] [place], [place] 7932208-25-2025 09:03-0310OhM7% (BldA) [Mass fraction]95 %Katherine Doss MD Work Phone: [phone]08-25-2025 09:03-0400Systolic blood igzdeofu338 mm[Hg]Katherine Doss MD Work Phone: [phone]08-20-2025 13:46-0400Body xvherd356.9 Elder Sierra DPM Work Phone: [facility] CenterShvlsmpzvm74-87-0446 13:46-0400Body mass index (BMI) [Ratio]58.17 kg/s6YldcbuLaurent Sierra DPM Work Phone: [phone] CenterYgpjzkozlo74-97-6522 13:46-0400Body .64 kgStfatmata Sharmaher DPM Work Phone: [phone] [place], [place] [address]Lcsrpcfbqn33-93-2030 09:31-0400Body dcjdca258.1 Sandra Cardenas MD Work Phone: [phone]08-15-2025 09:31-0400Body mass index (BMI) [Ratio]56.86 kg/u3TtktjCharlene Cardenas MD Work Phone: [phone] [place], [place] 5903308-15-2025 09:31-0400Body .82 kgCharlene Cardenas MD Work Phone: [phone] [place], [place] 5903308-15-2025 09:31-0400Diastolic blood jyhhlhln68 mm[Hg]Charlene Cardenas MD Work Phone: [phone] [place], [place] 5903308-15-2025 09:31-0400Heart rate 78 /Shelby Cardenas MD Work Phone: [phone] [place], [place] 5903308-15-2025 09:31-0400Systolic blood vfddsjeh764 mm[Hg]Charlene Cardenas MD Work Phone: [phone] [place], [place] 5903307-30-2025 09:05-0400Body .9 [facility]07-30-2025 09:05-0400Body mass index (BMI) [Ratio]57.85 kg/m2[facility]07-30-2025 09:05-0400Body aurbmf300.91 kgWashington [facility]07-30-2025 09:05-0400Diastolic blood fbbuqpcf06 mm[Hg][facility] 05-01-2025 09:05-0400Systolic blood ppedlenj152 mm[Hg][facility]07-16-2025 13:04-0400Body ezqeob636.86 cmLizbeth Snyder APRN Work Phone: [facility]07-16-2025 13:04-0400 Body mass index (BMI) [Ratio]59.8 kg/w8Pftcdrga Amandaachecarolyne AMOS Work Phone: [facility]07-16-2025 13:04-0400 Body ilcotzjeeiv17.5 [degF]Lizbeth Rohrbacher ADAPTIVE PHYSICAL EDUCATION SPECIALIST Work Phone: [facility]07-16-2025 13:04-0400 Body aabsmo611.26 kgLizbeth Snyder APRN Work Phone: [facility]07-16-2025 13:04-0400 Diastolic blood jvqovlmx33 mm[Hg]Lizbeth Snyder APRN Work Phone: [facility]07-16-2025 13:04-0400 Heart rate76 /minLizbeth Snyder APRN Work Phone: [phone]07-16-2025 13:04-0400 SaO2% (BldA) [Mass fraction]98 %Lizbeth Snyder APRN Work Phone: [phone]07-16-2025 13:04-0400 Systolic blood ubnsugdn465 mm[Hg]Lizbeth Snyder APRN Work Phone: [facility]04-16-2025 14:58-0400 Body vasbld460.9 cmAngela Lowe PA Work Phone: [facility] CenterMpewyppvnx24-52-5845 14:58-0400Body mass index (BMI) [Ratio]58.17 kg/j5Pxrduw Lowe PA Work Phone: [facility] CenterWwdhqkyyaq37-68-8650 14:58-0400Body vhqlle483.64 kgAngela Lowe PA Work Phone: [facility] CenterBrhncxaaxw83-43-3358 14:58-0400Diastolic blood mm[Hg]Yamile Lowe PA Work Phone: [facility] CenterJrxsphrlvg57-16-2560 14:58-0400Systolic blood xyvrcido170 mm[Hg]Yamile Lowe PA Work Phone: [facility] CenterHxggrrtbfh50-64-3092 19:13-0500Body utrmmd491.[address]02-05-2025 19:13-0500Body mass index (BMI) [Ratio] 54.13 kg/m2Pmh [address] [place], [place] 3317902-05-2025 19:13-0500Body zefptg203.56 kg [address] [place], [place] 3317912-09-2024 09:03-0500Body .9 cmAngela Lowe PA Work Phone: [facility] CenterEscfjurlab20-24-1157 09:03-0500Body mass index (BMI) [Ratio]54.33 kg/e1Enfciz Lowe PA Work Phone: [facility] CenterGnfdtbabhd64-39-1401 09:03-0500Body .02 kgAngela Lowe PA Work Phone: [facility] CenterRneahngybw65-92-4363 09:03-0500Diastolic blood rdswhswo60 mm[Hg]Yamile Lowe PA Work Phone: [facility] CenterNgmfuwfyca51-12-6671 09:03-0500Systolic blood mm[Hg]Yamile Lowe PA Work Phone: [facility] CenterHaorhplbbx10-06-8506 14:57-0500Body ajewyl944.9 cmKatherine Doss MD Work Phone: [facility]11-11-2024 14:57-0500Body mass index (BMI) [Ratio]54.22 kg/j9XquzrgeKatherine Doss MD Work Phone: [facility]11-11-2024 14:57-0500Body vynqpv570.84 kgKatherine Doss MD Work Phone: [phone]11-11-2024 14:57-0500Diastolic blood xgiapqzq78 mm[Hg]Katherine Doss MD Work Phone: [facility] HospitalComment on above:right arm 84/57 xl cuff rzku17-40-5130 14:57-0500Heart rate76 /minKatherine Doss MD Work Phone: [facility]11-11-2024 14:57-2479NtO6% (BldA) [Mass fraction]98 %Katherine Doss MD Work Phone: [facility]11-11-2024 14:57-0500Systolic blood mm[Hg]Katherine Doss MD Work Phone: [facility] HospitalComment on above:right arm 84/57 xl cuff akvs11-43-3552 09:54-0400Body .9 cmSteven Rusher DPM Work Phone: [facility] CenterVnqyravhng21-42-7635 09:54-0400Body mass index (BMI) [Ratio]53.32 kg/z6Uublkv Rusher DPM Work Phone: [facility] CenterJtyuhmhprn81-02-2536 09:54-0400Body ulfxar444.75 kgSteven Rusher DPM Work Phone: [facility] CenterYkltsazokz62-71-3537 14:15-0400Body udcnvg428.[address]06-04-2024 14:15-0400Body mass index (BMI) [Ratio]54.1 kg/m[address]06-04-2024 14:15-0400Body weight 121.[address]06-04-2024 14:15-0400Diastolic blood xvbocemh32 mm[Hg][address]06-04-2024 14:15-0400Systolic blood fkqznijg000 mm[Hg][address]05-21-2024 11:11-0400Body pnythq103.9 cmTanya Senior DO Work Phone: [facility]05-21-2024 11:11-0400Body mass index (BMI) [Ratio]55.66 kg/c0Scupa Senior DO Work Phone: [facility]05-21-2024 11:11-0400Body .01 kgTanya Senior DO Work Phone: [facility]05-21-2024 11:11-0400Diastolic blood korydsys56 mm[Hg]Rehana Senior DO Work Phone: [facility]05-21-2024 11:11-0400Systolic blood zbydsvdx744 mm[Hg]Rehana Senior DO Work Phone: [facility]05-09-2024 14:06-0400Body fmzouc260.86 cmAPRFernanda Nieves Claudio Work Phone: [facility]05-09-2024 14:06-0400 Body mass index (BMI) [Ratio]55.3 kg/m2APRFernanda Nieves Claudio Work Phone: [facility]05-09-2024 14:06-0400 Body paajwk173.28 kgAPRFernanda Nieves Romelcarolyne Work Phone: [phone]05-09-2024 14:06-0400 Diastolic blood ctzagakw28 mm[Hg]DANDRE Snyder Work Phone: [phone]05-09-2024 14:06-0400 Heart rate85 /minAPRFernanda Nieves Claudio Work Phone: [phone]05-09-2024 14:06-0400 SaO2% (BldA) [Mass fraction]99 %ADAPTIVE PHYSICAL EDUCATION SPECIALISTFernanda AltamiranoLizbeth Claudio Work Phone: [facility]05-09-2024 14:06-0400 Systolic blood mm[Hg]DANDRE Snyder Work Phone: [phone]05-06-2024 08:27-0400 Body upufmv724.9 [facility]05-06-2024 08:27-0400Body mass index (BMI) [Ratio]54.86 kg/m2[facility]05-06-2024 08:27-0400Body fasicf771.2 kg[facility]05-06-2024 08:27-0400Diastolic blood yosnzsrb61 mm[Hg][facility] 02-06-2024 08:27-0400Systolic blood ykibanzg622 mm[Hg][facility]03-11-2024 12:06-0400Body ymiwqj723.9 cmKatherine Doss MD Work Phone: [phone]03-11-2024 12:06-0400Body mass index (BMI) [Ratio]53.73 kg/z3PihowxuKatherine Doss MD Work Phone: [phone]03-11-2024 12:06-0400Body seuulj591.66 kgKatherine Doss MD Work Phone: [phone])551-[address] [place], [place] 7932203-11-2024 12:06-0400Diastolic blood ogswqwum05 mm[Hg]Katherine Doss MD Work Phone: 1(298)681-[address] [place], [place] 7932203-11-2024 12:06-0400Heart rate 67 /minKatherine Doss MD Work Phone: 1(345)375-[address] [place], [place] 7932203-11-2024 12:06-0298HnP2% (BldA) [Mass fraction]96 %Katherine Doss MD Work Phone: [phone]03-11-2024 12:06-0400Systolic blood mlapzoug365 mm[Hg]Katherine Doss MD Work Phone: [phone]03-01-2024 09:05-0500Body .86 cmAPRFernanda Snyder Work Phone: [facility]03-01-2024 09:05-0500 Body mass index (BMI) [Ratio]53.9 kg/m2DANDRE Snyder Work Phone: [phone]03-01-2024 09:05-0500 Body eyymrw094.1 kgDANDRE Snyder Work Phone: [facility]03-01-2024 09:05-0500 Diastolic blood xhemfzzy30 mm[Hg]DANDRE Snyder Work Phone: [facility]03-01-2024 09:05-0500 Heart rate77 /minAPRFernanda Snyder Work Phone: [facility]03-01-2024 09:05-0500 SaO2% (BldA) [Mass fraction]98 %DANDRE Snyder Work Phone: [facility]03-01-2024 09:05-0500 Systolic blood ozqrovde023 mm[Hg]DANDRE Snyder Work Phone: [facility]03-22-2021 11:30-0400 Body Vckhhfnmtxs19.4 [degF][employer] Work Phone: 1(274) 160-463003-22-2021 11:30-0400BP Xwhjlwppd82 mm[Hg][employer] Work Phone: 1(703) 835-850403-22-2021 11:30-0400BP Iheipgit754 mm[Hg][employer] Work Phone: 1(327) 103-525003-22-2021 11:30-0400Pulse (Heart Rate)79 /minJefferson Memorial HospitalProterro Work Phone: 1(424) 583-917403-22-2021 11:30-0400Pulse Zskeoaoe38 %[employer] Phone: 1(296) 221-517703-22-2021 11:30-0400Respiratory Rate18 /min[employer] Work Phone: 1(926) 703-998403-22-2021 08:14-0400BMI (Body Mass Index)54.13 kg/m2 [employer] Phone: 1(581) 448-597203-22-2021 08:14-0400Body .56 kgJefferson Memorial HospitalPower Plus Communications Phone: 1(536) 325-167603-22-2021 08:14-1848Rgydxk793.9 cmJefferson Memorial HospitalProterro Work Phone: 1(222) 284-254806-29-2020 12:41-0400Body Vdymypmbfwg77.2 [degF] [facility], LR37-75-3680 12:41-0400BP Lvhanqawk49 mm[Hg] [facility], DV42-28-5334 12:41-0400BP Rkyyjvfm305 mm[Hg] [facility], BC66-52-2607 12:41-0400Pulse (Heart Rate)80 /min [facility], ZD87-03-9876 12:41-0400Pulse Rfghwwaa99 %[facility], QO12-41-3352 12:41-0400Respiratory Rate17 /minSelect [facility], HH96-32-1455 11:32-0400BMI (Body Mass Index)54.13 kg/x8IszlbqkK[facility]tering Health [facility], BY55-01-3270 11:32-0400Body ckcqok898.56 kgSelect [facility]ty [facility], QU13-54-6220 11:32-5038Umhfhw459.9 cmKettering Health [place], [place] Encounters Encounter DateEncounter TypeCare ProviderFacilityStart: 07-15-2025 End: 62-00-0088Tvmxqn outpatient new 30 Taylor Posadas MD Work Phone: [facility] CardiologyComment on above: Shortness of breath (Primary Dx); Morbid obesity ([facility]-HCC)Start: 07-15-2025 End: 86-74-9495anbnuvuvixGGPOVJI A DABAJAUC [facility] HospitalStart: 07-08-2025 End: 20-35-2348Ulbjatfxewpl consultation with Marc WILLINGHAM Work Phone: [facility] DieticiansComment on above: Morbid obesity ([facility]-HCC) (Primary Dx); Pre-bariatric surgery nutrition evaluationStart: 07-08-2025 End: 20-18-7389kutmddzdqjSPEKMarilee Mendoza HospitalStart: 06-10-2025 End: 53-08-7349zrstuqfoacMbilkhxqMeghann Snyder APRN Work Phone: [facility] Work Phone: Start: 06-10-2025 End: 84-73-0788Xisterp encounter procedureTraekristian Snyder APRN [facility] Work Phone: Start: 06-07-2025 End: 48-58-8153Vmqrizxzhnbu consultation with Marc WILLINGHAM Work Phone: [facility] DieticiansComment on above: Morbid obesity (CMS-HCC) (Primary Dx); Pre-bariatric surgery nutrition evaluationStart: 06-07-2025 End: 27-10-5969losujrdgknCPDBMarilee Copeland [place] HospitalStart: 06-05-2025 End: 16-63-9903Utmkao outpatient visit 10 minutesKatblanco Doss MD Work Phone: [facility] PHYSICIANS SLEEP MEDICINEComment on above: MUKESH (obstructive sleep apnea) (Primary Dx)Start: 05-30-2025 End: 44-44-0414pfykbuxeafFPVHUZK E WILLIAMSUC [facility] HospitalStart: 05-29-2025 End: 91-28-0245mcwinoipguHcfyxsxu Rohrbacher APRN Work Phone: [facility] Work Phone: Start: 05-29-2025 End: 81-17-9579Qwrvkyv encounter procedureLizbeth Snyder APRN [facility] Work Phone: Start: 05-29-2025 End: 83-95-1504Ypaptca encounter statusLizbeth Snyder APRN [facility] Hospitaltart: 52-21-4601Ysg-patient / Non-visitLizbeth Snyder APRN [facility] [employer] Work Phone: Start: 71-66-0826ryzdvuwlrmBpcyyyq J BuckFacility: SURG CLINICStart: 05-27-2025 End: 13-77-6883Rmycex outpatient visit 15 minutesKatyn E Romario MD Work Phone: [facility] Pulmonary/Sleep MedicineComment on above:Intermittent asthma, unspecified asthma severity, unspecified whether complicated (Primary Dx)Start: 05-27-2025 End: 36-46-3139jyvxcbreyiUOFDYBZ E WILLIAMSOhio State [facility] Start: 05-22-2025 End: 46-26-9670Xumunm flowsheetSteven A Rusher DPM Work Phone: [facility] PodiatryStart: 05-22-2025 End: 95-84-8956Wdejwu flowsheetSteven A Rusher DPM Work Phone: noPer[facility] Services PodiatryStart: 05-22-2025 End: 89-01-8604Heiwcu outpatient visit 15 minutesSteven A Rusher DPM Work Phone: noPer[facility] Services PodiatryComment on above:Onychocryptosis (Primary Dx); Dystrophic nail; Pain around toenail, right foot; Pain around toenail, left foot; Difficulty walkingStart: 05-22-2025 End: 80-07-8760sortnvgjktAJXPDX A RUSHERNot AvailableStart: 05-17-2025 End: 76-75-8107Vtsvxitqb encounterYamile Watson CMAProMedica Physicians CardiologyStart: 05-17-2025 End: 77-06-8829Ipcwph outpatient new 45 minutesCharlene Cardenas MD Work Phone: [facility] General SurgeryComment on above: Morbid obesity (CMS-HCC) (Primary Dx)Start: 05-17-2025 End: 39-29-9195kbdkwclfukHGCXP N PRATTOhio State [facility] Hospital Ambulatory PPGStart: 66-89-0465wkjyjarkuvXeglzcxg MitchellFacility:[facility] SURG CLINICStart: 05-02-2025 End: 24-42-4931Jgjzfn-up encounterDorinda Thorpe APRN-CNM Work Phone: [facility] - CyldeComment on above: High risk HPV w/aviva, Thin Prep Pap TestStart: 05-01-2025 End: 39-26-3123iwwuijcjsgEVUCWFCK [facility] Start: 05-01-2025 End: 89-69-6560Stuzxcfgi for gynecological examination (general) (routine) without abnormal findingsEllis Fischel Cancer Centertart: 05-01-2025 End: 13-43-4424Nckkhbw encounter procedurePOhioHealth [facility] Start: 05-01-2025 End: 17-14-2655Poliztsx preventive med est patient 18-39 yrsPmcbride orthopedic [facility] – [place] [employer] Worker [facility] - CyldeComment on above:Well woman exam with routine gynecological exam (Primary Dx); Encounter for screening mammogram for malignant neoplasm of breast; Standardized adult depression screening tool completed; Pap smear, as part of routine gynecological examinationStart: 04-17-2025 End: 82-49-6731dlbkhigaodMcninxtpRoderick Snyder APRN Work Phone: [facility] Work Phone: Start: 04-17-2025 End: 41-39-8778Vmxyvhc encounter procedureLizbeth Snyder APRN [employer]-[facility] Work Phone: Start: 85-71-1990efgteotdeiUkkuxjlj Mitchell Facility: SURG CLINICStart: 01-25-2025 End: 28-99-4258Aboecwxjm encounterDajayro Swan CMAProMedica Physicians Pulmonary/Sleep MedicineStart: 01-16-2025 End: 07-18-9006Trkcxx outpatient visit 25 minutesAngela Lowe PA Work Phone: ana BELLEVUEComment on above:Polyneuropathy; ParesthesiaStart: 01-16-2025 End: 97-32-8496hhonwzwztjPNHYFK LOWENot AvailableStart: 01-16-2025 End: 91-27-3515Ffdisw flowsheetAngela Lowe PA Work Phone: ana BELLEVUEStart: 01-16-2025 End: 58-93-7587Nwnxat flowsheetAngela Lowe PA Work Phone: ana BELLEVUEStart: 12-20-2024 End: 16-15-5300bgsuxlnlkaWWHQZZ Scotty SIERRAJesús AvailableStart: 11-23-2024 End: 71-00-8742Wvskyytsighuc procedureKatherine Doss MD Work Phone: [facility] Pulmonary/Sleep MedicineStart: 11-23-2024 End: 01-59-0539Gsrqtcqdo encounterRoxanne E LafountainProMedica Physicians Pulmonary/Sleep MedicineStart: 11-07-2024 End: 54-33-3773Iptxtyke SupportKatherine Doss MD Work Phone: [facility] Comment on above:MUKESH (obstructive sleep apnea)Start: 08-22-0745twekxtheqgIWYOSRI E WILLIAMSUC [facility] HospitalStart: 10-02-2024 End: 76-47-2529AyxwejVseuelmMelvin Doss MD Work Phone: [facility]/Sleep MedicineComment on above:Moderate persistent asthma, unspecified whether complicatedStart: 09-10-2024 End: 41-62-6408Hzwdfm flowsheetAngela Lowe PA Work Phone: [facility] NEUROLOGYStart: 09-10-2024 End: 81-09-8010Fsaunn flowsheetAngela Lowe PA Work Phone: [facility] NEUROLOGYStart: 09-10-2024 End: 64-85-6687Owtumoeiu encounterAngela Lowe PA Work Phone: [facility]TEStart: 09-10-2024 End: 67-91-2471Tfnjrv outpatient visit 25 minutesAngela Lowe PA Work Phone: [facility] ST NEUROLOGYComment on above:Paresthesia (Primary Dx)Start: 09-10-2024 End: 70-85-9611lmwtsdibquQFNBEC LOWENot AvailableStart: 09-03-2024 End: 06-36-2802ZvcirnLzprjulMelvin Doss MD Work Phone: [facility] Pulmonary/Sleep MedicineComment on above:Moderate persistent asthma, unspecified whether complicatedStart: 08-15-2024 End: 55-83-8806Bsszxdotr encounterKatherine Doss MD Work Phone: [facility] - Sleep DisordersComment on above:Sleep Lab (HST)Start: 08-14-2024 End: 67-11-4344Cknfuhamb encounterOrders Support User [facility] - Sleep DisordersComment on above: Sleep Lab (PSG Order)Start: 08-13-2024 End: 11-08-8312gbgpdxtkcxGTOPOCC E WILLIAMSOhio [facility] Start: 08-13-2024 End: 62-75-9241Ffblri outpatient visit 15 minutesKatherine Doss MD Work Phone: [facility] Pulmonary/Sleep MedicineComment on above:MUKESH (obstructive sleep apnea) (Primary Dx)Start: 07-20-2024 End: 93-11-0618Mnmnnf flowsheetSteven A Rusher DPM Work Phone: noms PODIATRYStart: 07-20-2024 End: 13-50-0632Qlqpts flowsheetSteven A Rusher DPM Work Phone: noms PODIATRYStart: 07-20-2024 End: 58-19-6479Gfqatq outpatient visit 15 minutesSteven A Rusher DPM Work Phone: noms PODIATRYComment on above:Capsulitis of right foot (Primary Dx); Sprain of ligament of tarsometatarsal joint of right foot, sequela; Pain in joint of right foot; Difficulty walkingStart: 07-20-2024 End: 08-87-8752dvazkbazylNEHGKE A RUSHERNot AvailableStart: 07-18-2024 End: 92-11-6879wnvzidrvzlDVIANQ A RUSHERNot AvailableStart: 07-18-2024 End: 66-81-8581Pwzitrf encounter procedureSteven A Rusher DPM Work Phone: noms PODIATRYComment on above:Dystrophic nail (Primary Dx); Onychocryptosis; Pain around toenail, right foot; Pain around toenail, left footStart: 07-18-2024 End: 55-25-8507Guztns flowsheetSteven A Rusher DPM Work Phone: NOMS PODIATRYStart: 07-18-2024 End: 29-19-6582Yzzuwf flowsheetSteven A Rusher DPM Work Phone: [phone] PODIATRYStart: 07-17-2024 End: 42-67-6447Uvvion flowsheetSteven A Rusher DPM Work Phone: [facility] PODIATRYStart: 07-17-2024 End: 80-57-4356Yggehv flowsheetSteven A Rusher DPM Work Phone: [facility] PODIATRYStart: 72-52-1948Qfsrbhg encounter statusJekristian Snyder APRN Work Phone: [facility] Campustart: 05-28-2024 End: 34-12-4300Tpsreovhl encounterCenter For Health Services - Women's Services Work Phone: [facility] - Women's ServicesStart: 04-24-2024 End: 94-56-9008Wtvtnbvha encounterCenter For Health Services - Women's Services Work Phone: [facility] - Women's ServicesStart: 03-29-2024 End: 74-67-4083Ikbitlydb encounterCenter For Health Services - Women's Services Work Phone: [facility] - Women's ServicesStart: 03-20-2024 End: 34-55-9069Dxiediigq encounterCenter For Health Services - Women's Services Work Phone: [facility] - Women's ServicesStart: 03-06-2024 End: 95-71-6087Xfosoj outpatient new 30 minutesChs [facility] - Women's ServicesComment on above:Request for sterilization (Primary Dx); Obesity, morbid, BMI 50 or higher (CMS-HCC); Type 2 diabetes mellitus with diabetic polyneuropathy, without long-term current use of insulin (CMS-HCC); Chronic ulcer of right midfoot limited to breakdown of skin (CMS-HCC); Psychogenic nonepileptic seizure; Moderate recurrent major depression (CMS-HCC); Shortness of breath; Learning disability; Primary hypertension; Asthma, unspecified asthma severity, unspecified whether complicated, unspecified whether persistent; Pre-op examStart: 03-06-2024 End: 28-54-2395Gzfpkagpnpxwe examination done30 Pat[address] StreetBlurr [facility] Start: 17-45-3367Nswlvbrtxqfhs examination Norma Snyder APRN Work Phone: [facility] Campustart: 02-21-2024 End: 32-27-2563Ygqwvadyt to same day surgery stanberryRehana Senior [employer] Work Phone: [facility] Work Phone: Start: 02-21-2024 End: 93-43-5476Cohner outpatient visit 15 minutesRehana Jaramillo Pascal [employer]rics Work Phone: [facility] Rut[facility] HospitalEnabled Employment Physicians Obstetrics/GynecologyComment on above:Preoperative exam for gynecologic surgery (Primary Dx); Obesity, morbid, BMI 50 or higher (CMS-HCC); Type 2 diabetes mellitus with diabetic polyneuropathy, without long-term current use of insulin (CMS-HCC); Chronic ulcer of right midfoot limited to breakdown of skin (CMS-HCC); Psychogenic nonepileptic seizure; Moderate recurrent major depression (CMS-HCC); Shortness of breath; Learning disability; Primary hypertension; Asthma, unspecified asthma severity, unspecified whether complicated, unspecified whether persistent; Request for sterilizationStart: 02-09-2024 End: 65-07-0405cvfwjjckhdXkkxtilp RohrbacherFacility:[facility] Campustart: 02-09-2024 End: 23-44-2459xmvxfkoxrrMSOERadha Snyder Work Phone: [facility] Work Phone: Start: 02-09-2024 End: 85-47-2856Eitdqlot ReferredDANDRE Lizbeth Claudio Work Phone: [facility] [place] Work Phone: Start: 02-09-2024 End: 08-70-9219Rfwdgwh encounter procedureAPRFernanda Nieves Claudio Work Phone: [facility] Work Phone: Start: 02-06-2024 End: 93-42-1368Wwydxvy encounter procedureHenrico [facility]' [facility] Work Phone: Start: 02-06-2024 End: 72-98-7645Pglncbst preventive med est patient 18-39 yrsPmcbride orth[facility] [place] Ob Electronics Utility Worker [facility] Services - CyldeComment on above:Well woman exam with routine gynecological exam (Primary Dx); Standardized adult depression screening tool completed; Request for sterilizationStart: 12-12-2023 End: 50-09-1096Ykhfaf outpatient visit 15 minutesKatherine Doss MD Work Phone: [facility] Pulmonary/Sleep MedicineComment on above:MUKESH (obstructive sleep apnea) (Primary Dx)Start: 12-02-2023 End: 35-97-5442Kychubl encounter procedureAPRFernanda Snyder Work Phone: [facility] GroupUniversity [facility] St[facility] Work Phone: Start: 44-15-1883VwcydnUuxgsccMakayla Doss MD Work Phone: [facility] Pulmonary/Sleep MedicineComment on above:Moderate persistent asthma, unspecified whether complicatedStart: 27-30-1084RmhgjtGfvmmqgMakayla Doss MD Work Phone: [facility] Pulmonary/Sleep MedicineComment on above:Moderate persistent asthma, unspecified whether complicatedStart: 02-13-2023 End: 98-27-2891skuxaupnspUUZGSR RODRIGUEZ .Facility:Y4Mstvb: 01-05-2021 End: 79-48-7240Qgottyn encounter procedureSt. Charles Medical [facility] CenterStart: 12-22-2020 End: 79-52-4460Wuattwl encounter [facility] Start: 12-22-2020 End: 90-13-5019Rdeipfgkyd hospital visit by physicianKolby Ellis Work Phone: staz ORComment on above:Post-op pain (Primary Dx) Start: 03-31-2020 End: 74-48-2657Vcammpv encounter procedureSelect Medical TriHealth Rehabilitation Hospitaltart: 03-31-2020 End: 32-52-4103Xpfagbeqft hospital visit by physicianKolby Ellis Work Phone: staz ORStart: 03-27-2020 End: 85-12-2174Qqgvwjbfio hospital visit by physicianStc Covid19 Pat Screening ScheduleSTCZ Pre-Admit TestingComment on above:No Show Procedures DateProcedureProcedure DetailPerforming ClinicianStart: 27-01-7120Brf routine ecg w/least 12 lds w/i&rMohamad A Dabaja DO Work Phone: Start: 07-41-6120Qgduihchtfd observation [Identifier] in Cervix by Salvador Watson CMAStart: 36-98-9669Wbalhb-up visitFollow-up KATHERINE DOSSStart: 52-50-7463Aqgdj foot complete minimum 3 viewsSteven Scotty Sierra DPM Work Phone: Start: 21-91-3278Ixlba test visual color cmprsn methsJessanne marie Tee Billingsyabarbara DO Work Phone: start: 83-69-3130Efprk depression screening assessment [facility] MidwifeStart: 59-43-8593Sfhne depression screening assessmentKatherine Doss MD Work Phone: Start: 95-81-3461Kcmynor blood reagent stripKolby Ellis Work Phone: Start: 15-69-6079Efqvflkphfe during operationBrajarrett Ellis Work Phone: Start: 62-76-1225Nxqncgxybcoh chorionic qualitative Rosana Fernanda Wilhelm Work Phone: Start: 36-13-7537Dxsebbh blood reagent stripBrajarrett Ellis Work Phone: Start: 59-86-6060Ilkqeqocbqp observation [Identifier] in Cervix by Cyto Gilberto Doss MD Work Phone: Start: 41-97-5850ASDDRUHLL PATIENTMICHELLE PALOMO Start: 64-57-6895Ynkya test visual color cmprsn methsMICHELLE PALOMO Start: 78-49-8525Hbfmp test visual color cmprsn methsBrajarrett Ellis Work Phone: Plan of Treatment DateCare ActivityDetailAuthorStart: 86-07-6942XYnL,Tdap and Td Vaccines (2 - Tdap)DTaP,Tdap and Td Vaccines (2 - Tdap)[facility] SystemStart: 22-71-4677Dlpdduegc for malignant neoplasm of cervixNOMS HealthcareStart: 03-15-3855Axuozgxqw for malignant neoplasm of cervixPap SmearProOhiohealth [facility] SystemStart: 80-36-9845Iuwjs BMI ScreeningAdult BMI ScreeningRegency Hospital Company SystemStart: 11-82-8642Dmcrdzp ScreeningTobacco ScreeningRegency Hospital Company System Start: 02-29-2805Dhngl BMI ScreeningAdult BMI ScreeningRegency Hospital Company System Start: 57-19-5840Vykth BMI ScreeningAdult BMI ScreeningMary [facility]an Hospitalca [facility] Start: 60-12-7701Nfxwtcm ScreeningTobacco ScreeningMary [facility]an Hospitalca [facility] SystemStart: 58-87-2960Xcxwn BMI ScreeningAdult BMI ScreeningMary [facility]an Hospitalca [facility] SystemStart: 77-04-3481Jismnca ScreeningTobacco ScreeningMary [facility]an Hospitalca [facility] SystemStart: 92-47-4696Xncoa BMI Follow Up PlanAdult BMI Follow Up PlanRegency Hospital Company SystemStart: 30-15-1908Xenew BMI ScreeningAdult BMI ScreeningRegency Hospital Company SystemStart: 32-55-1427Bbhkqwp ScreeningTobacco ScreeningMary Rutan Hospitalca Health System Start: 11-25-2025 End: 08-11-1112Jeyeakh encounter jhmtisrep85/23/2026 9:30 AM EST Office Visit [facility] [address] [place] [address] Katherine Doss MD [address] [facility] [address] [place] [address] [facility] Pulmonary/Sleep MedicineStart: 08-63-4273Jgcah BMI ScreeningAdult BMI Screening [facility] SystemStart: 20-52-0007Rxnetlv ScreeningTobacco Screening [facility] SystemStart: 09-24-2025 End: 33-68-0241Emgvibl encounter aqjmqrsjx51/23/2025 2:45 PM EST Procedure Visit [facility] [address] [place] [address] Laurent Sierra DPM [address] [place] [address] [facility] PodiatryStart: 52-86-4136Kiasg BMI ScreeningAdult BMI ScreeningOhioHealth [facility] Hospital Health SystemStart: 07-15-2025 End: 14-54-0220Wdqbjab encounter djvkigstw45/13/2025 10:00 AM EDT Office Visit [facility] [address] [place] [address] Jani Posadas MD [address] [place] [address] Malik Palmer, [address] [place] [address] [facility] CardiologyStart: 07-08-2025 End: 62-97-8788Girlrlfbffal consultation with whxmlcd6907/08/2025 9:00 AM EDT Telemedicine [facility] Dieticians [address] [facility] [facility] [facility] [address] [place] [address] Freddy Mcfadden, TARSHA [address] [place] [address] [facility] DieticiansStart: 06-26-2025 End: 80-98-5569Ehhydhy encounter oxzuuvset98/24/2025 8:30 AM EDT Appointment [facility] - Radiology [address] [place] [address] [phone] [facility] - RadiologyStart: 06-17-2025 End: 03-69-2740Ijbyqep encounter procedureProCommunity Hospital Physicians CardiologyStart: 06-07-2025 End: 98-95-6339Bfgwbrdyurtx consultation with lbndbmw6206/07/2025 8:00 AM EDT Telemedicine [facility] Dieticians [address] [facility] [place] [phone] Freddy Mcfadden, TARSHA [address] [place] [address] [facility] DieticiansStart: 06-04-2025 End: 06-65-5448Lnobzqiexpso consultation with jnqabrr2606/04/2025 8:30 AM EDT Telemedicine [facility] Dieticians [address] [facility] [facility] [facility] [address] [place] [phone] Kaci Purcell RDProKettering Health [facility] DieticiansStart: 64-14-7001JQOPO-19 Vaccine ( season)COVID-19 Vaccine ( season)[facility] SystemStart: 09-79-8446Bcnmxhgyx vaccinationMOUNTAIN POINT [facility] HealthcareStart: 05-30-2025 End: 30-65-7925Ornrxbi encounter wjrohinfe47/28/2025 8:30 AM EDT Appointment [facility] - Pulmonary Function [address] [place] [address] Katherine Dsos MD [address] [place], [place] [facility] - Pulmonary FunctionStart: 05-27-2025 End: 77-96-6810PW Chest PA and LateralX-ray chest 2 views Imaging Routine Intermittent asthma, unspecified asthma severity, unspecified whether complicated Expected: 05/27/2025, Expires: 05/27/2026[facility] Comment on above:Expected: 05/27/2025, Expires: 05/27/2026Start: 05-22-2025 End: 34-49-0691Pasumlo encounter procedureNOMS PODIATRYComment on above: ArrivedStart: 05-17-2025 End: 10-53-9705NO Gastrointestinal tract upper Views W air contrast PO and W barium contrast POFluoroscopy upper GI with esophagus Imaging Routine Morbid obesity ([facility]-HCC) Expected: 05/17/2025, Expires: 05/17/2026[facility] SystemComment on above:Expected: 05/17/2025, Expires: 05/17/2026Start: 05-17-2025 End: 21-74-0573Syliwky encounter ugqapebij18/15/2025 9:30 AM EDT Office Visit [facility] General Surgery [address] [place] [address], [phone] Charlene Cardenas MD [address] [place] [address] [facility] General SurgeryStart: 05-16-2025 End: 20-02-8280Nbongse encounter tnoomvqtw12/14/2025 2:40 PM EDT Office Visit [facility] [address] [place] [address] Yamile Lofton PA [address] [place] [address] TAVO BELLEVUEStart: 05-01-2025 End: 15-77-4345FUG Breast - bilateral screeningMammography screening bilateral with CAD Imaging Routine Encounter for screening mammogram for malignant neoplasm of breast Expected: 05/01/2025, Expires: 05/01/2026[facility] Work Phone: Comment on above:Expected: 05/01/2025, Expires: 05/01/2026Start: 06-48-7455Jrjkvpj referralClinton Memorial Hospital Work Phone: Start: 04-15-2025 End: 62-29-2343Jkqujji encounter juiwrvate05/14/2025 2:30 PM EDT Office Visit [facility] [address] [place] [address] Katherine Doss MD [address] [facility] [place] [address] [facility] Pulmonary/Sleep MedicineStart: 56-76-2727Kamdf BMI ScreeningAdult BMI Screening [facility] SystemStart: 74-08-8548Dvivhqd ScreeningTobacco Screening [facility] SystemStart: 92-99-8695Gjghn BMI ScreeningAdult BMI Screening [facility] SystemStart: 57-53-3055Ufeyzfw ScreeningTobacco Screening [facility] SystemStart: 46-20-9346Mhevd BMI Follow Up PlanAdult BMI Follow Up PlanProMedica Health SystemStart: 86-62-8646Jfmaj BMI ScreeningAdult BMI ScreeningProMedica Health SystemStart: 56-18-1623Aphsvuysog ScreeningDepression ScreeningProMedica Health SystemStart: 07-35-7623Mciisuo ScreeningTobacco ScreeningProMedica Health SystemStart: 01-16-2025 End: 34-80-6318Cahpvkd encounter xrpropwbq31/16/2025 3:00 PM EDT Office Visit [facility] CHRISTIANSON [address] [place] [address] Yamile Lofton PA [address] [place] [address] Bridget CHRISTIANSONComment on above:ArrivedStart: 12-18-2024 End: 49-50-1509Lxepxqs encounter nwpgixwhx51/18/2025 2:20 PM EDT Office Visit [facility] [place] [address] [place] [address] Yamile Lofton PA [address] [place] [address] [facility] [place] [facility] ROUTEStart: 12-11-2024 Adult BMI ScreeningAdult BMI ScreeningRegency Hospital Company SystemStart: 09-10-2024 End: 90-88-9186QX Lumbar spine WO contrastMR lumbar spine wo contrast Imaging Routine Paresthesia Expected: 09/10/2024, Expires: 09/10/2025[facility] Work Phone: comment on above:Expected: 09/10/2024, Expires: 09/10/2025Start: 09-10-2024 End: 21-93-9160Uwnwdhj encounter lewryvmdf78/09/2024 9:00 AM EST Office Visit [facility] [address] [facility] [address] [place] [address], [place] [phone] Yamile Lofton PA [address] [place] [address] ArrivedMOBILE CITY HOSPITAL NEUROLOGYComment on above:ArrivedStart: 08-27-2024 End: 58-75-5103Dqtqxjz encounter dlanjwkmp68/25/2024 1:20 PM EST Office Visit [facility] [place] [address] [place] [address] Nallely Pichardo, ONLINE EDITOR [address] [place] [address] [facility] [place] [facility] ROUTEStart: 07-31-2024 End: 77-29-5714Orddyhp encounter tmtpxdzop29/29/2024 10:45 AM EDT Office Visit [facility] [address] [place] [address] Laurent Sierra DPM [address] [place] [address] [facility] PODIATRYStart: 07-20-2024 End: 55-46-1675Utpgmqf encounter procedureNOMS PODIATRYComment on above: ArrivedStart: 07-18-2024 End: 39-71-1339Dqxrykr encounter jvxyooyqh76/16/2024 2:15 PM EDT Procedure Visit [facility] [address] [place] [address] Laurent Sierra DPM [address] [place] [address] ArrivedNOMS PODIATRYComment on above:ArrivedStart: 07-16-2024 End: 66-00-3955Rsvghjwnx to same day surgery ekrafg7307/16/2024 11:30 AM EDT - 07/16/2024 1:00 PM EDT Surgery [facility] Surgery [address] [place] [phone] Beatrice Pina, DO [address] [place] [address] LAPAROSCOPIC SALPINGECTOMY [29079 (CPT )][facility] Surgery Comment on above:LAPAROSCOPIC SALPINGECTOMY [33781 (CPT )]Start: 07-16-2024 End: 39-15-1529Zqsrwetryla w/rmvl adnexal structuresLAPAROSCOPIC SALPINGECTOMY desires sterilizaiton 07/16/2024 11:30 AM EDTTOLEDO SURGERYStart: 07-16-2024 Subsequent hospital visit by sqaosbmmb04/14/2024 11:30 AM EDT Hospital Encounter [facility] Surgery [address] [place] [phone] Beatrice Pina, DO [address] [place] [address] [facility]: 07-16[facility]2024 End: 62-10-3286Qwhthhfvk to same day surgery drdrfq7407/16/2024 7:30 AM EDT - 07/16/2024 9:00 AM EDT Surgery [address] [place] [address] Beatrice Pina, DO [address] [address] LAPAROSCOPIC SALPINGECTOMY [20828 (CPT )][facility] Comment on above:LAPAROSCOPIC SALPINGECTOMY [66495 (CPT )]Start: 07-16-2024 End: 62-42-0679Ckgvsaoroyy w/rmvl adnexal structuresLAPAROSCOPIC SALPINGECTOMY desires sterilizaiton 07/16/2024 7:30 AM EDTTOLEDO SURGERYStart: 07-16-2024 Subsequent hospital visit by tantkbtcx17/14/2024 7:30 AM EDT Hospital Encounter [address] [place] [address] Beatrice Pina, DO [address] [place] [address] [facility] SurgeryStart: 07-02-2024 End: 23-97-5353Lhiduyxfb to pdvmkpuhzieiz96/30/2024 10:30 AM EDT Support Visit [facility] [address] [place] [address] [place] [address]CipYaoajh [facility] Start: 06-25-2024 End: 55-97-0658Nwqsmdq encounter fpvcguneb02/23/2024 2:30 PM EDT Office Visit [facility] [address] [place] [address] Katherine Doss MD [address] [facility] [address] [place] [address] [facility] Pulmonary/Sleep MedicineStart: 06-21-2024 End: 50-90-2489Kbwktcx encounter xfwlslgak33/19/2024 2:15 PM EDT Office Visit [facility] Women's Services [address] [place] [phone] [facility] CenterStart: 06-11-2024 End: 99-99-4835Whvbhnljz to same day surgery sggdiw0706/11/2024 2:30 PM EDT - 06/11/2024 4:00 PM EDT Surgery [facility] Surgery [address] [place] [phone] Beatrice Pina DO [address] [facility] [address] [address] LAPAROSCOPIC SALPINGECTOMY [12501 (CPT )][facility] Surgery Comment on above:LAPAROSCOPIC SALPINGECTOMY [24877 (CPT )]Start: 06-11-2024 End: 52-69-5189Kdooiwkttix w/rmvl adnexal structuresLAPAROSCOPIC SALPINGECTOMY desires sterilizaiton 06/11/2024 2:30 PM EDTTOLEDO SURGERYStart: 06-11-2024 Subsequent hospital visit by stpfvuibo62/09/2024 2:30 PM EDT Hospital Encounter [facility] Surgery [address] [place] [phone] Beatrice Pina DO [address] [facility] [place] [address] [place] [address] [facility] SurgeryStart: 15-94-8260PHWWZ-19 Vaccine ()COVID-19 Vaccine ( season)[facility], 1928–1983rt: 06-34-5011Wodquebro vaccinationNOMS HealthcareStart: 05-31-2024 End: 26-08-1850Libifzh encounter procedureCenter for Health Services - Women's ServicesStart: 05-28-2024 End: 11-36-8211Fljjmyxrw to dadkbqhtmgahh13/26/2024 9:30 AM EDT Support Visit [facility] [address] [address]VchWacbwm [facility] Start: 05-14-2024 End: 47-29-9097Jfuqmtppr to same day surgery koxhgp5705/14/2024 2:30 PM EDT - 05/14/2024 4:00 PM EDT Surgery [facility] Surgery [address] [place] [phone] Beatrice Pina, DO [address] [address] LAPAROSCOPIC SALPINGECTOMY [21269 (CPT )][facility] Surgery Comment on above:LAPAROSCOPIC SALPINGECTOMY [27806 (CPT )]Start: 05-14-2024 End: 18-30-5207Yedfvvazprf w/rmvl adnexal structuresLAPAROSCOPIC SALPINGECTOMY desires sterilizaiton 05/14/2024 2:30 PM EDTTOLEDO SURGERYStart: 05-14-2024 Subsequent hospital visit by gerttjbig88/12/2024 2:30 PM EDT Hospital Encounter [facility] Surgery [address] [place] [phone] Beatrice Pina, DO [address] [place] [address] [facility] SurgeryStart: 04-30-2024 End: 32-32-2750Lpfsbsxyh to boqrezoptkvmu50/29/2024 9:30 AM EDT Support Visit [facility] [address] [place] [address]CauVqtjut [facility] Start: 76-04-0899Ptdlc BMI ScreeningAdult BMI ScreeningRegency Hospital Company System Start: 03-06-2024 End: 83-55-4256Cwdampc encounter /04/2024 2:15 PM EDT Office Visit [facility] Women's Services [address] [facility] [place] [place] [address] [facility]ocoH[facility] Women's ServicesStart: 02-21-2024 End: 84-20-7242Wakbtel encounter xnvowtakg68/21/2024 11:00 AM EDT Office Visit [facility] [address] [place] [phone] Rehana Senior DO [address] [place], [place] [phone] [facility] Obstetrics/GynecologyStart: 40-77-4415Tbjykafd identified in Urine by Culture [facility] Campustart: 91-88-8871Ifmlzca referralWooster Community Hospital Work Phone: Start: 02-06-2024 End: 86-76-9717Nuvyaqw encounter saszkwlox99/06/2024 8:30 AM EDT Office Visit [facility] Services - [place] [address] [place] [address] HcwOzwzay Women's Services - CyldeStart: 39-30-0243Ezxks BMI Follow Up PlanAdult BMI Follow Up PlanOhioHealth Berger Hospital Health SystemStart: 88-58-0898Ljmmuvm ScreeningTobacco ScreeningRegency Hospital Company SystemStart: 12-12-2023 End: 05-42-7978Yfbocnf encounter kztizntpc58/11/2024 12:15 PM EDT Office Visit [facility] [address] [place] [id number] Katherine Doss MD [address] [place] [address] [facility]monary/Sleep MedicineStart: 73-62-0785Zmybuhbxm for malignant neoplasm of cervixPap Smear [facility]App[facility] SystemStart: 75-97-7969NWHKG-19 Vaccine ( season) COVID-19 Vaccine ()ProMAppleton Municipal Hospital SystemStart: 06-03-2023 Influenza vaccinationInfluenza VaccineRegency Hospital Company SystemStart: 09-11-2022 Depression ScreeningDepression ScreeningProOhiohealth Arthur [facility] SystemStart: 01-05-2021 End: 39-95-2947Huhmkkus EncounterSTVZ ORComment on above:SACRAL NERVE STIMULATOR IMPLANT STAGE IIStart: 65-18-2028Ppmlgtste vaccinationWilson Memorial Hospital: 34-64-1471Aehenavwp for malignant neoplasm of cervixNOMS HealthcareStart: 66-99-0955Hauxddzha for malignant neoplasm of cervixNOMS HealthcareStart: 73-64-3590RNcO/Tdap/Td vaccine (1 - Tdap)DTaP/Tdap/Td vaccine (1 - Tdap)[facility]: 20-08-6976Kchemzoc foot examinationDiabetic Foot Exam [facility] Hospitaltart: 19-47-6625HBFKZ-19 Vaccine (1)COVID-19 Vaccine (1) [facility] [employer] Phone: start: 88-82-3429LFP screeningHIV screenWilson Memorial Hospital: 57-42-2550Pgudh panelLipid screenProtestant Deaconess Hospital [employer] Phone: start: 28-29-7143Gupiosbny vaccine (1 of 2 - 2-dose childhood series)Varicella vaccine (1 of 2 - 2-dose childhood series)[facility]: 29-01-4269Ukniaxacwm measurementCreatinine monitoringCleveland Clinic Mer[facility] Phone: start: 78-76-6425Debmlzrk screeningDiabetic Ophthalmology ExamProSumma Health Barberton Campustart: 89-93-8730Cbovjdpzx C screening Hepatitis C screenOhiohealth Berger HospitalVoradius Phone: start: 11-27-8500Asxfwtbex monitoringPotassium monitoringOhiohealth Berger HospitalVoradius Phone: End: 76-36-3231Aotrs glucose - POCTBlood glucose - POCT Point of Care Testing Routine One Time for 1 Occurrences starting 12/23/2020 until 12/23/2020[facility] Phone: comment on above:One Time for 1 Occurrences starting 12/23/2020 until 12/23/2020 End: 73-33-9319KVR W Auto Differential panel - BloodCBC auto differential Lab Routine Morbid obesity ([facility]) 1 Occurrences starting 05/17/2025 until 0 05/17/2026[employer] Phone: Comment on above:1 Occurrences starting 05/17/2025 until 05/17/2026omprehensive metabolic 2000 panel - Serum or PlasmaProtestant HospitalContinuous pulse oximetryPulse oximetry, continuous Respiratory Care Routine Every 4hr until discontinued starting 12/23/2020[facility] Phone: comment on above:Every 4hr until discontinued starting 12/23/2020 End: 08-71-0308MVPGX-19COVID-19 Lab Routine One Time for 1 Occurrences starting 03/27/2020 until 03/27/2020[facility]- [place], [place] on above:One Time for 1 Occurrences starting 03/27/2020 until 03/27/2020 End: 34-27-1119Cfcmokglyfgjmf vitamin b-12Vitamin B12 Lab Routine Morbid obesity ([facility]) 1 Occurrences starting 05/17/2025 until 05/17/2026ProeduFireComment on above:1 Occurrences starting 05/17/2025 until 05/17/2026 End: 34-79-0957Eairocsmgp A1c/Hemoglobin.total in BloodHemoglobin A1c Lab Routine Morbid obesity ([facility]) 1 Occurrences starting 05/17/2025 until 05/17/2026ProeduFireComment on above:1 Occurrences starting 05/17/2025 until 05/17/2026 End: 72-97-9695Jumx [Mass/volume] in Serum or PlasmaIron Lab Routine Morbid obesity ([facility]) 1 Occurrences starting 05/17/2025 until 05/17/2026[facility] Medigram SystemComment on above:1 Occurrences starting 05/17/2025 until 05/17/2026 End: 50-12-0801Kzrcl panelLiver panel Lab Routine Morbid obesity ([facility]) 1 Occurrences starting 05/17/2025 until 05/17/2026ProOhiohealth Arthur G.H. Bing, Md, Cancer Center SystemComment on above:1 Occurrences starting 05/17/2025 until 05/17/2026 End: 91-70-8279Jekgwoakjqv Hormone, intactParathyroid Hormone, intact Lab Routine Morbid obesity ([facility]) 1 Occurrences starting 05/17/2025 until 05/17/2026ProOhiohealth Arthur G.H. Bing, Md, Cancer Center SystemComment on above:1 Occurrences starting 05/17/2025 until 05/17/2026Patient [place] Work Phone: End: 29-00-7463ZEY [facility] Routine MUKESH (obstructive sleep apnea) 1 Occurrences starting 08/13/2024until 08/13/2025 [facility] Work Phone: Comment on above:1 Occurrences starting 08/13/2024 until 08/13/2025 End: 60-18-2863Akomcpjcm function test Spirometry (Flow Volume Loop) pre/post short acting bronchodilator w/ DLCO (diffusion study)Pulmonary function test Spirometry (Flow Volume Loop) pre/post short acting bronchodilator w/ DLCO ( diffusion study) PFT Routine Intermittent asthma, unspecified asthma severity, unspecified whether complicated 1 Occurrences starting 05/27/2025 until 05/27/2026[facility] Work Phone: Comment on above:1 Occurrences starting 05/27/2025 until 05/27/2026Thin Prep Pap TestThin Prep Pap Test Pathology and Cytology Routine Pap smear, as part of routine gynecological examination Ordered: 05/01/2025[facility] Medigram SystemComment on above:Ordered: 05/01/2025 End: 42-77-5401Eozbmecspzd [Units/volume] in Serum or PlasmaTSH Lab Routine Morbid obesity ([facility]) 1 Occurrences starting 05/17/2025 until 05/17/2026 [facility] SystemComment on above:1 Occurrences starting 05/17/2025 until 05/17/2026 End: 87-13-4042Fuzhhqc D 25 hydroxyVitamin D 25 hydroxy Lab Routine Morbid obesity ([facility]) 1 Occurrences starting 05/17/2025 until 05/17/2026[facility] SystemComment on above:1 Occurrences starting 05/17/2025 until 05/17/2026 [facility] Immunizations Immunization DateImmunizationNotesCare XxnxsxpjCeymdaco31-52-5868tibwzxlhm virus vaccine, unspecified formulationSteven Rusher DPM Work Phone: [facility] CenterOtsufopqow08-10-5859cqytmqquel, tetanus toxoids and pertussis vaccineKatherine Doss MD Work Phone: [facility] HospitalOxvezy57-79-5833iebpqoidf, injectable, quadrivalent, preservative freeSteven Rusher DPM Work Phone: [facility] CenterWvqnmxxrrs44-94-2298ctjegrnnd virus vaccine, unspecified formulationSteven Rusher DPM Work Phone: [facility] CenterZgdlvvmxry78-19-9518kmlrndguj virus vaccine, unspecified formulationKatherine Doss MD Work Phone: [facility] HospitalThhthb51-81-4401ybsapazjr, injectable, quadrivalent, contains preservativeSteven Rusher DPM Work Phone: [facility] Payers DatePayer CategoryPayerPolicy [id number]-pay2020Medicaid (Managed Care)[employer] Member Subscriber Plan / Payer (Effective 2020-Present) Name: Angela Ingram Relation to Subscriber: Self Name: Angela Ingram Payer ID: Not on file Group ID: Not on file Type: Not on file Address: [id number] [place] [phone] Mawr Hospital xxxxxxxxxxxx 2014-Present [phone] [place] [address] xxxxxxxxxxxx [id number] 2003[place] [employer] [id number] 2003-Present [phone] [place] [id number] Medicaid [facility] [id number] 2..1.435539.3.57[id number] 2..1.447377.3.57[id number] 2..1.685474.3.57[id number] 2..1.757954.3.57[id number] 2.16.840.1.778358.3.57[id number] 2.840.1.260341.3.57[id number] 2.840.1.125390.3.57[id number] 2.840.1.301181.3.57[id number] 2.840.1.024564.3.579.2.21[id number] 2.840.1.531347.3.579.[id number] 2.840.1.981675.3.57[id number] 2.840.1.694500.3.579.2.[id number] 2.840.1.588362.3.579.[id number] 2.840.1.776224.3.579.2.0[id number] 2.840.1.624886.3.579.2.6[id number] 2.840.1.641297.3.57[id number] 2.840.1.262012.3.57[id number] 2.840.1.824942.3.579.[id number] 2.840.1.534585.3.57[id number] 2.16.840.1.821219.3.57[id number] 2.16.840.1.949034.3.57[id number] 2.16.840.1.223439.3.57[id number] 2.16.840.1.798383.3.579.[id number] 2.16.840.1.232452.3.579.2.6[id number] 1.2.840.597540.1.13.239.2.7.3.235058.642Xcctgei84714574 2.16.840.1.789122.3.579.2.531 Social History DateTypeDetailFacilityStart: 03-31-2020 End: 93-40-3897Goxgjbp smoking status NHISNever smokerTrinity Health System East Campustart: 03-31-2020 End: 15-59-8454Mnjmawd intakeLifetime non-drinker (finding)[place], [place] Start: 88-25-6042Lyjkjfj SDOH Alcohol Oraagxjkx3RmvidWilson Memorial Hospital: 24-36-9238Zop Assigned At BirthNot on fileMerced, KYExposure to SARS-CoV-2 (event)Unable to assessOhioHealth Grove City Methodist Hospitalart: 12-22-2020 End: 54-86-2323Yvzkvim use and exposureNever usedOhiohealth Berger HospitalSensity Systems Work Phone: exposure to SARS-CoV-2 (event)Not sureOhiohealth Berger HospitalVoradius Phone: start: 57-55-2553Rzg Assigned At BirthKettering Health Washington Townshiptart: 11-13-2020 End: 98-59-1204Zzdvwmd of Social functionProMedica Health SystemStart: 11-13-2020 End: 15-23-0980Tuchzyj use panelNorthern Regional Hospitaltart: 50-26-1094Kaytrmu CommentCaffeine intake: >[address] [facility] HospitalStart: 03-06-2024 End: 12-52-4839Faoblxlyq beverage intakeCurrent non-drinker of alcohol (finding) [facility] HospitalAdolesohio state [facility] hospital depression screening ndholybjhr6YcwFuailmNorthern Regional Hospitaltart: 52-55-8292KmsFibfcx (finding)[facility] Regional Hospitaltart: 83-78-3868Uexops identityIdentifies as female gender (finding)[facility] Medical Equipment Procedure CodeEquipment CodeEquipment Original TextEquipment IdentifierDatesKit Lead Sure Scan Interstim [id number]: 61-79-1802Nrjsfwt Lead-01/05/2021 [id number]: 95-38-6488Zzlzt Stimulator-[id number]: 01-05-2021 Comment on above:Description: interstim II bladder stimulator Clinical Notes 12-12-2023 to 07-15-2025 Note Date & QyglVlgvPifhevsb78-29-8620 History of Present illness Narrative* Malik Palmer, DO - 07/15/2025 10:00 AM EDT Angela Morgan Ingram Date of visit: 07/15/2025 Date of : 1985 Age: 39 y.o. Patient Active Problem List Diagnosis Obesity, morbid, BMI 50 or higher ([facility]) HTN (hypertension) Shortness of breath Type 2 diabetes mellitus, without long-term current use of insulin ([facility]) Chronic ulcer of right midfoot limited to breakdown of skin ([facility]) Generalized anxiety disorder Learning disability Moderate recurrent major depression ([facility]) Psychogenic nonepileptic seizure Allergies Allergen Reactions Claritin [...] morbid obesity, MUKESH noncompliant with CPAP, hypertension, now-npkdmkh-elktsplqb diabetes mellitus, nonepileptic seizures who presents for [...] Wt 128.4 kg (283 lb) BMI 56.20 kg/m Orders Placed or Reconciled This Encounter Medications [...] no discontinued medications. IMPRESSIONS/PLAN 1. Morbid obesity (CMS-HCC) - [facility] - [place], [place] - POCT EKG - [facility] - [place], [place]; Future 2. Shortness of breath - [...] TODAYS ORDERS Orders Placed This Encounter Procedures [facility] - [place] POCT EKG FOLLOW UP No follow-ups on file. PCP: NELSON Castillo Referring Physician: NELSON Castillo [address] [place] [address] documented in this encounterMartin Memorial Hospital10-06-2025 History of Present illness Narrative* TARSHA Jonas - 07/08/2025 9:00 AM EDT Patient stated she no longer would like to have surgery at this time and did not want to continue with appointment Start time: 0857 End time: 0900 documented in this encounterMartin Memorial Hospital10-06-2025 Instructions* Patient Instructions* TARSHA Jonas - 07/08/2025 9:00 AM EDT If you re looking for general health and wellness resources, please visit [facility] [email or web address]. Read the [facility] Hospitaledic Bariatric Guide. documented in this encounterMartin Memorial Hospital09-05-2025 History of Present illness Narrative* TARSHA Jonas - 06/07/2025 8:00 AM EDT Bariatric Medical Nutrition Therapy Nutritional Assessment/Education Initial Nutrition Education Video Visit via Real-time Synchronous Audiovisual Provider Location: [facility]PART[facility] OF [facility] [address] [place] [phone] Patient Location: Patient's home Video Visit Consent Statement: I discussed risks, benefits, and alternatives of a real-time synchronous audiovisual consultation with the patient (and any accompanying persons) including the risks that the patient's personal health details and medical records will be discussed over real-time, synchronous, interactive video/audio/telecommunication technology, the visit will not be recorded withoutthe express consent of both the provider and the patient, and that there are some limitations compared to isso-ui-tjiq evaluations. The patient consented to the presence of additional virtual and/or in-person participants. We elected to proceed. Angela Ingram is a 39 y.o. female who presents for medical nutritional therapy evaluation and education for weight loss surgery. This patient is interested in the sleeve gastrectomy. Ht 151.1 cm (4' 11.49 ) Wt 129.3 kg (285 lb) BMI 56.62 kg/m Relevant medical history: Hypertension, acid refluxx, sleep apnea, arthritis, and diabetes Barrier learning assessment: Yes Weight history: Highest adult weight was 286 pounds. Lowest adult weight was over 200 pounds. Angela Ingram wants to weigh below 200 pounds. There is a maternal and paternal family history for obesity. Previous diet and medication treatments for obesity include: exercise, healthy eating, and diabetesmedications. Despite these attempts at dieting and exercise, the patient has failed to maintain anysustained weight loss. Lifestyle Factors: Marital Status: Occupation: Disability Work hours: N/A Smoking, chewing tobacco/dipping or smokeless tobacco products: None Family/friend support for weight loss surgery: Sister and people from [employer] Primary cook in the house: Self Primary person who does the grocery shopping: Self and sister Nutritional Assessment: Pt s view as his/her biggest problem/concern with eating: Overeating when super hungry Food weakness or trigger foods: Apple flavored desserts Is satiety recognized?: Yes Personal eating pace: Moderate Emotional eating: None Location of most meals: Bed in living room Diet Recall: Awake 7:00 am Breakfast Snack Lunch 12:00 pm Snack Dinner 5:00 pm Snack Chicken patties Or Salad Or Javier Or Hot dogs Chicken patties Or Salad Or Javier Or Hot dogs Beverage Intake: Cirkul water, pop (1 can a day), and iced coffee (occasionally) Alcohol Intake: None Weekend Meal Pattern: Same Dining Out Frequency: Fridays Vitamin/Mineral/Herbal Supplements: One a day multivitamin Food Allergies/Intolerances: Lactose intolerant Muslim/Cultural Food Requests: None Activity Level: Formal Exercise: None General Activity Status: walking throughout the day Nutrition Diagnosis: Obesity as evidenced by BMI. Body mass index is 56.62 kg/m . Nutrition Intervention: Initial nutrition education Discussed diet and behavioral changes needed to be successful with weight loss surgery. Patient agrees to the following goals: 1) Eat 4-5 meals per day. No night time snacking. 2) Avoid all sugars, sweets and desserts. Read food labels and avoid foods/beverages with > 5 grams sugar per serving. 3) Eat fewer fried foods, limit fats added to foods, and avoid high fat fast foods. Read food labels for foods < 3 grams fat per serving. 4) Eat protein-rich food at each meal followed by vegetables, then fruit, while limiting starches. 5) Take a multivitamin/mineral supplement daily. 6) Sip 64 ounces of liquids between meals. 7) Eliminate drinks with sugar, alcohol, caffeine and carbonation. 8) Eat meals very slowly, approximately 30 minutes per meal. Stop eating when feel full. 9) Take small bites. Chew foods well. 10) Avoid emotional eating / mindless eating. 11) Exercise 3 times per week. Written information on all discussed has been provided within the [facility] B[facility]ric Guide. My contact name and number provided if questions or concerns arise. Nutrition Monitoring: To follow up in 1 month to show progress towards goals. Start time: 802 End time: 852 documented in this encounterMary Rutan HospitalDecisionView [id number] Instructions* Patient Instructions* TARSHA Jonas - 06/07/2025 8:00 AM EDT If you re looking for general health and wellness resources, please visit [email or web address]. Read the [facility] B[facility]ric Guide. documented in this encounterMartin Memorial Hospital09-03-2025 History of Present illness Narrative* Katherine Doss MD - 06/05/2025 12:00 PM EDT Images from the original note were not included. [address] [facility] [address] Patient: Angela Ingram Date of : 1985 Encounter Date: 06/05/2025 History of Present Illness: The patient is a 39 y.o. female and and requested a video visit for follow-up of PFTs and chest x-ray. Since our last visit she denies any change in her respiratory symptoms. She has been fairly well controlled. Chest x-ray reviewed, there is some calcific tendonitis over the right shoulder. I encouraged her to discuss this with her primary care provider. Testing: Assessment: MUKESH (AHI 21.9, minimum saturation 84%, PSG March 2022, weight 273 / Home sleep apnea test on 2024-11-07 with [facility] (ZOLTAN (3%)=52.0 events/hour; ZOLTAN (4%)=40.9 events/hour; John SpO2=71.0%; Ruhsrg=308.0 lbs; BMI=54.7 kg/m2), intolerant to PAP therapy Non-epileptic seizures Chronic insomnia Obesity, BMI 56 Plan: We discussed the results of her PFTs which at this point do not show any evidence of restriction orobstruction. Her ARISCAT score is low (15 pt, 1.6%) if the surgery is < 2 hours, intermediate (31pt, 13.3%) if the surgery last more than 2 hours. Although her risk maybe slightly elevated due to partially obstructive sleep apnea, it is not prohibitive of surgery. We discussed the importance of sleeping laterally postoperatively. Ok to continue of inhaler therapy as she has not had any reversibility on PFTs and symptoms have been controlled. Encouraged her to discuss the incidental finding of calcific tendinosis of the right shoulder with her PCP Follow up in 6 months This encounter was completed completely by video visit. The patient was made aware that this may duke billable service and consented to the video visit. This call lasted approximately 3 minute and more than 50% of the time was spent in direct counseling. An additional 12 minutes was spent in documentation and review of records. Video Visit via Real-time Synchronous Audiovisual Provider Location: [facility] [address] [place] [address] Patient Location: Patient's home Video Visit Consent Statement: I discussed risks, benefits, and alternatives of a real-time synchronous audiovisual consultation with the patient (and any accompanying persons) including the risks that the patient's personal health details and medical records will be discussed over real-time, synchronous, interactive video/audio/telecommunication technology, the visit will not be recorded withoutthe express consent of both the provider and the patient, and that there are some limitations compared to whhs-fq-qlip evaluations. The patient consented to the presence of additional virtual and/or in-person participants. We elected to proceed. Katherine Doss MD Past Medical, Family, and Social History Update: The following portions of the patient's history were reviewed and updated as appropriate: allergies, current medications, past family history, past medical history, past social history, past surgicalhistory and problem list. Past Medical History: Diagnosis [...] mg tablet busPIRone (BUSPAR) 15 mg tablet in the morning and at noon and in the evening and before bedtime. cetirizine (ZyrTEC) 10 mg tablet EASY TOUCH [...] Activity Alcohol Use No documented in this encounterMartin Memorial Hospital08-25-2025 History of Present illness Narrative* Katherine Doss MD - 05/27/2025 9:00 AM EDT Images from the original note were not included. [address] [place] [address] Patient: Angela Ingram Date of : 1985 Encounter Date: 05/27/2025 [...] 75 Ht 151.1 cm (4' 11.49 ) Wt129 kg (284 lb 4.8 oz) SpO2 95% BMI 56.48 kg/m General Appearance - Awake, alert, oriented, in no acute distress 05/27/2025 8:00 AM 11/07/2024 7:17 PM 08/13/2024 2:00 PM 12/12/2023 12:00 PM 04/11/2023 9:00 AM 03/22/2022 8:25 PM 05/14/2019 7:34 PM Odin Sleepiness Scale Sitting and Reading 3 3 [...] (3%)=52.0 events/hour; ZOLTAN (4%)=40.9 events/hour; John SpO2=71.0%; Nksvgf=570.0 lbs; BMI=54.7 kg/m2) 2. Non-epileptic seizures 3. [...] past medical history, past social history, past surgicalhistory and problem list. Past Medical History: Diagnosis [...] Activity Alcohol Use No documented in this encounterMartin Memorial Hospital08-25-2025 Instructions* Patient Instructions* Katherine Doss MD - 05/27/2025 9:00 AM EDT 1. PFTs and chest xray prior to surgery 2. On to continue off of inhalers 3. Sleep on side 4. Follow up after PFTs/CXR done (ok for virtual) documented in this encounterMartin Memorial Hospital08-20-2025 History of Present illness Narrative* Laurent Sierra DPM - 05/22/2025 1:30 PM EDT Images from the original note were not included. Subjective Patient ID: Angela Ingram is a 39 y.o. female who presents [...] by mouth Daily, Disp: , Rfl: HYDROcodone-acetaminophen ([place]) 5-325 MG tablet, , Disp: , Rfl: [...] pen-injector, INJECT 1 UNITS DOSE SUBCUTANEOUSLY ON TUESDAYOF EACH WEEK, Disp: , Rfl: predniSONE (Deltasone) [...] Bipolar disorder Daughter Diabetes Mother's Sister Lor Reffle Objective General Examination: GENERAL EXAMINATION: Alert and oriented. Pleasant disposition. Wearing Oswald sandals. Vascular: DORSALIS PEDIS PULSE: 2/4, bilaterally. [...] understanding. Laurent Sierra DPM documented in this [facility]08-20-2025 Instructions* Patient Instructions* Laurent Sierra DPM - 05/22/2025 1:30 PM EDT As noted documented in this [facility]08-15-2025 Miscellaneous Notes* Telephone Encounter - Yamile Watson CMA - 05/17/2025 10:15 AM EDT LMOM TO SCHED ONLINE EDITOR PRE OP APPT FOR BARIATRIC SURGERY. PT L/S 09/2021 WITH TMP. documented in this [facility]08-15-2025 Telephone encounter Note* Telephone Encounter - Yamile Watson CMA - 05/17/2025 10:15 AM EDT LMOM TO SCHED ONLINE EDITOR PRE OP APPT FOR BARIATRIC SURGERY. PT L/S 09/2021 WITH TMP. [facility] [facility] History of Present illness Narrative* Charlene Cardenas MD - 05/17/2025 9:30 AM EDT [facility] GENERAL SURG[facility] [address] [id number] [facility] SURGICAL WEIGHT LOSS PROGRAM INITIAL EVALUATION Patient: Angela Ingram Service Date: 05/17/2025 HPI: The patient is here to discuss surgical weight loss options. Patient has tried to lose weight by conventional means of diet and physical activity but cannot keep weight off. Patient will begin our dietary evaluation process and psychological evaluation and return to me to discuss sleeve gastrectomyas a tool for weight loss and also is aware that surgery is the last resort for weight loss. Patient also understands the importance of vitamins for life, need of physical activity, behavior education about food and nutritional habits, follow up requirements and participation in our support groups.Benefits, risks and alternatives of sleeve gastrectomy were discussed. Patient has family support an d would like to proceed. Chief Complaint Patient presents with New Patient Need MNT 1 of 3 The patient is a 39 y.o. year old female with morbid obesity, who stands Height: 151.1 cm (4' 11.49 ) tall with a weight of Weight: 129.8 kg (286 lb 3.2 oz) , resulting in a BMI of Body mass index is56.86 kg/m .. The patient suffers from comorbidities as a result of morbid obesity, including: Kneepain, Back pain, GERD, Sleep Apnea, Hypertension, Insulin [...] life. She was recommended to have surgery dueto the severity of her sleep apnea. She [...] a day. (Patient not taking: Reported on 05/17/2025),Disp: , Rfl: SOCIAL: This patient is presenting [...] Parkinson's [] [x] Anxiety disorder [x] [] Genitourinary/E Commerce Strategist YES NO Skin Intact [x] [] Urinary [...] you have any difficulty moving your head yqkr-hj-[id number]? [x] No [] Yes Do you have [...] turgor normal, no rashes or lesions Neurologic: director of maternity services intact, normal strength. Alert and oriented. Follows commands and moves all 4. BP 111/68 Pulse 78 Ht 151.1 cm (4' 11.49 ) Wt 129.8 kg (286 lb 3.2 oz) BMI 56.86 kg/m Physical Exam RECOMMENDATIONS: We spent a great deal of time discussing the risks and benefits of Robotic Laparoscopic or Open Sleeve Gastrectomy, and we discussed the need for post- operative visit compliance, behavior modifications and diet changes, protein and vitamin supplementation, as well as routine scheduled and dedicatedexercise. We discussed the potential weight loss benefit of approximately 60-70% of her excess bodyweight at 12-18 months post-op, as well as [...] Testing Screening Chest Xray and EKG at [facility] appointment Labwork: Final Lab Tests at [facility] appointment Please note that this chart was generated using voice recognition M*Modal dictation software. Although every effort was made to ensure the accuracy of this automated tire beader maker, some errors in tire beader maker may have occurred. documented in this encounterMartin Memorial Hospital07-30-2025 History of Present illness Narrative* Latanya Valadez, ADAPTIVE PHYSICAL EDUCATION SPECIALIST-COLLOID MILL OPERATOR - 05/01/2025 9:00 AM EDT Annual Well Woman Visit 05/01/2025 Rossi Ingram is a pleasant 39 y.o. 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 Periods are rare due to the [...] past medical history, past social history, past surgicalhistory and problem list. MEDICAL HX Past Medical [...] MOUTH EVERY 4 TO 6 HOURS NEEDED (Patientnot taking: Reported on 05/01/2025) 18 g 10 [...] Thought content normal. Judgment: Judgment normal. Assessment/Plan: Angela was seen today for gynecologic exam. 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 Follow up as needed. Await pap. Discussed ASCCP screening guidelines. Discussed taking a multivitamin. Discussed Calcium and Vitamin D for prevention of osteoporosis. Discussed recommendations for HPV vaccine between 9-45 yo. Can be received at [facility] or the [facility] department. Discussed need for yearly mammogram after 40 yo. Order placed. Discussed colon cancer screening recommendations to begin at 45 yo, patient to discuss with PCP. All questions answered. EUGENE Santamaria APRN-CNP Lisa M Krotzer, APRN-CNP 05/01/25 0945 documented in this encounterMartin Memorial Hospital07-16-2025 Evaluation note* Diagnosis Onset Date Resolution Status Admit Date Anxiety acuteJuly 2024 1:01pmAsthmaacuteJuly 2024 1:01pmBody mass index [BMI] 50.0-59.9, adultacuteJuly 2024 1:01pmDepressionacuteJuly 2024 1:01pmDiabetic neuropathy associated with diabetes mellitus due to underlying acuteJuly 2024 1:01pmHyperlipidemiaacuteJuly 2024 1:01pmHypertension acuteJuly 2024 1:01pmOSA (obstructive sleep apnea)acuteJuly 2024 1:01pmSeasonal allergiesacuteJuly 2024 1:01pmThyroid diseaseacuteJuly 2024 1:01pmType 2 diabetes mellitusacuteJuly 2024 1:01pmAnxietyacute May 29, 2025 1:05pmAsthmaacuteAugust 2024 1:05pmBody mass index [BMI] 50.0-59.9, adultacuteAugust 2024 1:05pmDepressionacuteAugust 2024 1:05pmDiabetic neuropathy associated with diabetes mellitus due to underlying acuteAugust 2024 1:05pmHyperlipidemiaacuteAugust 2024 1:05pm HypertensionacuteAugust 2024 1:05pmOSA (obstructive sleep apnea)acute May 29, 2025 1:05pmSeasonal allergiesacuteAugust 2024 1:05pmThyroid diseaseacuteAugust 2024 1:05pmType 2 diabetes mellitusacuteAugust 2024 1:05pmWellness examinationacuteAugust 2024 1:05pm [facility] Work Phone: [phone] Evaluation note* Diagnosis Onset Date Resolution Status Admit Date Anxiety acuteJuly 2024 1:01pmAsthmaacuteJuly 2024 1:01pmBody mass index [BMI] 50.0-59.9, adultacuteJuly 2024 1:01pmDepressionacuteJuly 2024 1:01pmDiabetic neuropathy associated with diabetes mellitus due to underlying acuteJuly 2024 1:01pmHyperlipidemiaacuteJuly 2024 1:01pmHypertension acuteJuly 2024 1:01pmOSA (obstructive sleep apnea)acuteJuly 2024 1:01pmSeasonal allergiesacuteJuly 2024 1:01pmThyroid diseaseacuteJuly 2024 1:01pmType 2 diabetes mellitusacuteJuly 2024 1:01pmAnxietyacute [place] 2024 1:05pmAsthmaacuteAugust 2024 1:05pmBody mass index [BMI] 50.0-59.9, adultacuteAugust 2024 1:05pmDepressionacuteAugust 2024 1:05pmDiabetic neuropathy associated with diabetes mellitus due to underlying acuteAugust 2024 1:05pmHyperlipidemiaacuteAugust 2024 1:05pm HypertensionacuteAugust 2024 1:05pmOSA (obstructive sleep apnea)acute May 29, 2025 1:05pmSeasonal allergiesacuteAugust 2024 1:05pmThyroid diseaseacuteAugust 2024 1:05pmType 2 diabetes mellitusacuteAugust 2024 1:05pmWellness examinationacuteAugust 2024 1:05pmLesion of skin of scalpacuteSept2024 8:41am [facility] Work Phone: [phone]) 165-248904-25-2025 Miscellaneous Notes* Telephone Encounter - Norma Swan CMA - 01/25/2025 9:11 AM EDT Patient cancelled 01/28 appointment via mychart. Drug Safety Coordinator called and left voicemail for patient to call office to reschedule appointment. documented in this encounterMartin Memorial Hospital04-25-2025 Telephone encounter Note* Telephone Encounter - Norma Swan CMA - 01/25/2025 9:11 AM EDT Patient cancelled 01/28 appointment via mychart. Drug Safety Coordinator called and left voicemail for patient to call office to reschedule appointment. [facility]04-16-[facility] History of Present illness Narrative* MAYCOL Eubanks - 01/16/2025 3:00 PM EDT Images from the original note were not included. Subjective Angela Ingram is a 39 y.o. year old female [...] Review Audit Reviewed by Beatrice Marr MA (Abap Developer) on 01/16/25 at 1502 Medication Order Taking? Sig Documenting Provider Last Dose Status Apple Cider Vinegar 188 MG capsule [id number] No Apple Cider Vinegar Historical Provider, Taking Active busPIRone (Buspar) 15 MG tablet [id number] No Take 15 mg by mouth Daily Historical Provider, Taking Active Calcium Citrate-Vitamin D (Calcium + D) 315-5 MG-MCG tablet [id number] No Calcium + D Historical Provider, Taking Active cetirizine (ZyrTEC) 10 MG tablet [id number] No Historical Provider, Taking Active Discontinued 01/14/25 1421 gabapentin (Neurontin) 100 MG capsule [id number] TAKE 1 CAPSULE BY MOUTH THREE TIMES DAILY (IN THE MORNING, IN THE EVENING and BEFORE bedtime) TAKE WITH the 400mg MAYCOL Eubanks Active gabapentin (Neurontin) 400 MG capsule [id number] Take 1 capsule (400 mg) by mouth in the morning and 1 capsule (400 mg) in the evening and 1 capsule (400 mg) before bedtime. Nallely Pichardo NP Active hydroCHLOROthiazide (HYDRODiuril) 25 MG tablet [id number] No Take 25 mg by mouth Daily Historical Provider, Taking Active HYDROcodone-acetaminophen ([place]) 5-325 MG tablet [id number] No Historical Provider, Taking Active hydrOXYzine pamoate (Vistaril) 25 MG capsule [id number] No TAKE 1 CAPSULE BY MOUTH TWICE PER DAY NEEDED Historical Provider, Taking Active Januvia 100 MG tablet [id number] No Take 100 mg by mouth Daily Laurent Sierra DPM Taking Active levothyroxine (Synthroid, Levoxyl) 50 MCG tablet [id number] No Historical Provider, Taking Active lisinopril 2.5 MG tablet [id number] No Historical Provider, Taking Active loperamide (Imodium) 2 MG capsule [id number] No take 1 capsule by mouth if needed AFTER EACH LOOSE STOOL NOT TO EXCEED 8 CAPSULES PER DAY Historical Provider, Taking Active meloxicam (Mobic) 15 MG tablet [id number] No take 1 tablet by mouth once daily with food if needed for DISCOMFORT Historical Provider, Taking Active montelukast (Singulair) 10 MG tablet [id number] No Historical Provider, Taking Active nitrofurantoin, macrocrystal-monohydrate, (Macrobid) 100 MG capsule [id number] TAKE 1 CAPSULE BY MOUTH EVERY 12 HOURS WITH FOOD Historical Provider, Active omeprazole (PriLOSEC) [address] capsule [id number] No Historical Provider, Taking Active ondansetron (Zofran) 4 MG tablet [id number] No Historical Provider, Taking Active oxybutynin XL (Ditropan-XL) 10 MG 24 hr tablet [id number] No Historical Provider, Taking Active Ozempic, 1 MG/DOSE, 4 MG/3ML solution pen-injector [id number] No INJECT 1 UNITS DOSE SUBCUTANEOUSLY ON TUESDAY OF EACH WEEK Historical Provider, Taking Active predniSONE (Deltasone) 10 MG tablet [id number] 1 tablet twice daily x 7 days; followed by 1 tablet daily as directed until complete Patient not taking: Reported on 09/10/2024 Laurent Sierra DPM Active pseudoephedrine ER (Sudafed-12 Hour) 120 MG 12 hr tablet [id number] No Patient not taking: Reported on 09/10/2024 Historical Provider, Taking Active QUEtiapine (SEROquel) 100 MG tablet [id number] No Historical Provider, Taking Active sertraline (Zoloft) 100 MG tablet [id number] No Historical Provider, Taking Active SITagliptin (Januvia) 50 MG tablet [id number] No Take 100 mg by mouth in the morning. Laurent Sierra DPM Taking Active traZODone (Desyrel) 50 MG tablet [id number] No Take 50 mg by mouth at bedtime. Historical Provider, Taking Active Trulicity 0.75 MG/0.5ML solution auto-injector [id number] INJECT 0.5ml SUBCUTANEOUSLY (UNDER THE SKIN) ONCE A WEEK Laurent Sierra DPM Active Turmeric powder [id number] No as directed Historical Provider, Taking Active [...] Kt's present. Crossed adductor present. Coordination Right: Ldhprf-df-nibd normal. Rapid alternating movement normal.Left: Uisozj-hx-hsqq normal. Rapid alternating movement normal. Gait Casual gait is normal including stance, stride, and arm swing. Motor Examination RUE Strength deltoid, biceps, triceps, wrist extensors, wrist extensors, wrist flexor, rail switch operator strength 5/5. LUE Strength deltoid, biceps, triceps, wrist extensors, wrist extensors, wrist flexor, rail switch operator strength 5/5. RLE Strength illopsoas, quadriceps, tibialis [...] but her symptoms persist. Her gabapentin was adjustedand she has improved symptoms. MRI lumbar spine [...] up in 4-6 months documented in this encounterMineral Area Regional Medical [id number] Miscellaneous Notes* Telephone Encounter - Ema Reynoso - 11/23/2024 9:59 AM EST Katherine Doss MD at 11/23/24 4473 Status: Signed Patient needs follow up appointment scheduled. Please let her know that she should call her dentistto see if they can up-titrate her OMAD to help treat her residual MUKESH Home sleep apnea test on 2024-11-07 with OMAD (ZOLTAN (3%)=52.0 events/hour; ZOLTAN (4%)=40.9 events/hour; John SpO2=71.0%; Duidff=576.0 lbs; BMI=54.7 kg/m2) DIAGNOSIS: Obstructive Sleep Apnea (G47.33) COMMENTS: With the oral mandibular device in lateral sleep there was still significant flow obstruction independent of body position. TREATMENT CONSIDERATIONS: Consider up titrating OMAD device with dentistry. If no room for uptitration, consider transition back to PAP therapy. documented in this encounterMartin Memorial Hospital02-21-2025 Telephone encounter Note* Telephone Encounter - Ema Reynoso - 11/23/2024 9:59 AM EST Katherine Doss MD at 11/23/24921 Status: Signed Patient needs follow up appointment scheduled. Please let her know that she should call her dentistto see if they can up-titrate her OMAD to help treat her residual MUKESH Home sleep apnea test on 2024-11-07 with OMAD (ZOLTAN (3%)=52.0 events/hour; ZOLTAN (4%)=40.9 events/hour; John SpO2=71.0%; Pbloko=082.0 lbs; BMI=54.7 kg/m2) DIAGNOSIS: Obstructive Sleep Apnea (G47.33) COMMENTS: With the oral mandibular device in lateral sleep there was still significant flow obstruction independent of body position. TREATMENT CONSIDERATIONS: Consider up titrating OMAD device with dentistry. If no room for uptitration, consider transition back to PAP therapy. [facility] Smart [id number] History of Present illness Narrative* Katherine Doss MD - 11/23/2024 9:22 AM EST Patient needs follow up appointment scheduled. Please let her know that she should call her dentistto see if they can up-titrate her OMAD to help treat her residual MUKESH Home sleep apnea test on 2024-11-07 with OMAD (ZOLTAN (3%)=52.0 events/hour; ZOLTAN (4%)=40.9 events/hour; John SpO2=71.0%; Ijdkkn=270.0 lbs; BMI=54.7 kg/m2) DIAGNOSIS: Obstructive Sleep Apnea (G47.33) COMMENTS: With the oral mandibular device in lateral sleep there was still significant flow obstruction independent of body position. TREATMENT CONSIDERATIONS: Consider up titrating OMAD device with dentistry. If no room for uptitration, consider transition back to PAP therapy. documented in this encounterMary Rutan HospitalEnabled Employment Select Specialty [id number] History of Present illness Narrative* MAYCOL Eubanks - 09/10/2024 9:00 AM EST Images from the original note were not included. Subjective Angela Ingram is a 38 y.o. year old female [...] Cancino Francia Emphysema Father Jose L Cancino Fracnia Asthma Father Jose L Cancino Francia Bipolar disorder Sister Bipolar disorder Daughter Diabetes Mother's Sister Lor Ferguson Social History Tobacco Use Smoking status: Never Smokeless tobacco: Never Substance Use Topics Alcohol use: Never Comment: Caffeine intake: >4 cups per day pop Medication Documentation Review Audit Reviewed by Barb Devries MA (Abap Developer) on 09/10/24 at 0908 Medication Order Taking? Sig Documenting Provider Last Dose Status Apple Cider Vinegar 188 MG capsule [id number] No Apple Cider Vinegar Historical Provider, Taking Active busPIRone (Buspar) 15 MG tablet [id number] No Take 15 mg by mouth Daily Historical Provider, Taking Active Calcium Citrate-Vitamin D (Calcium + D) 315-5 MG-MCG tablet [id number] No Calcium + D Historical Provider, Taking Active cetirizine (ZyrTEC) 10 MG tablet [id number] No Historical Provider, Taking Active gabapentin (Neurontin) 400 MG capsule [id number] Take 1 capsule (400 mg) by mouth in the morning and 1 capsule (400 mg) in the evening and 1 capsule (400 mg) before bedtime. Nallely Pichardo, CHRISTINE Active hydroCHLOROthiazide (HYDRODiuril) 25 MG tablet [id number] No Take 25 mg by mouth Daily Historical Provider, Taking Active HYDROcodone-acetaminophen ([place]) 5-325 MG tablet [id number] No Historical Provider, Taking Active hydrOXYzine pamoate (Vistaril) 25 MG capsule [id number] No TAKE 1 CAPSULE BY MOUTH TWICE PER DAY NEEDED Historical Provider, Taking Active Januvia 100 MG tablet [id number] No Take 100 mg by mouth Daily Laurent Sierra DPM Taking Active levothyroxine (Synthroid, Levoxyl) 50 MCG tablet [id number] No Historical Provider, Taking Active lisinopril 2.5 MG tablet [id number] No Historical Provider, Taking Active loperamide (Imodium) 2 MG capsule [id number] No take 1 capsule by mouth if needed AFTER EACH LOOSE STOOL NOT TO EXCEED 8 CAPSULES PER DAY Historical Provider, Taking Active meloxicam (Mobic) 15 MG tablet [id number] No take 1 tablet by mouth once daily with food if needed for DISCOMFORT Historical Provider, Taking Active montelukast (Singulair) 10 MG tablet [id number] No Historical Provider, Taking Active nitrofurantoin, macrocrystal-monohydrate, (Macrobid) 100 MG capsule [id number] TAKE 1 CAPSULE BY MOUTH EVERY 12 HOURS WITH FOOD Historical Provider, Active omeprazole (PriLOSEC) [address] capsule [id number] No Historical Provider, Taking Active ondansetron (Zofran) 4 MG tablet [id number] No Historical Provider, Taking Active oxybutynin XL (Ditropan-XL) 10 MG 24 hr tablet [id number] No Historical Provider, Taking Active Ozempic, 1 MG/DOSE, 4 MG/3ML solution pen-injector [id number] No INJECT 1 UNITS DOSE SUBCUTANEOUSLY ON TUESDAY OF EACH WEEK Historical Provider, Taking Active predniSONE (Deltasone) 10 MG tablet [id number] 1 tablet twice daily x 7 days; followed by 1 tablet daily as directed until complete Patient not taking: Reported on 09/10/2024 Laurent Sierra DPM Active pseudoephedrine ER (Sudafed-12 Hour) 120 MG 12 hr tablet [id number] No Patient not taking: Reported on 09/10/2024 Historical Provider, Taking Active QUEtiapine (SEROquel) 100 MG tablet [id number] No Historical Provider, Taking Active sertraline (Zoloft) 100 MG tablet [id number] No Historical Provider, Taking Active SITagliptin (Januvia) 50 MG tablet [id number] No Take 100 mg by mouth in the morning. Laurent Sierra DPM Taking Active traZODone (Desyrel) 50 MG tablet [id number] No Take 50 mg by mouth at bedtime. Historical Provider, Taking Active Trulicity 0.75 MG/0.5ML solution auto-injector [id number] INJECT 0.5ml SUBCUTANEOUSLY (UNDER THE SKIN) ONCE A WEEK Laurent Sierra DPM Active Turmeric powder [id number] No as directed Historical Provider, Taking Active [...] Kt's present. Crossed adductor present. Coordination Right: Hpnpzr-ej-mxtx normal. Rapid alternating movement normal.Left: Ccaezj-on-bqdo normal. Rapid alternating movement normal. Gait Casual gait is normal including stance, stride, and arm swing. Motor Examination RUE Strength deltoid, biceps, triceps, wrist extensors, wrist extensors, wrist flexor, rail switch operator strength 5/5. LUE Strength deltoid, biceps, triceps, wrist extensors, wrist extensors, wrist flexor, rail switch operator strength 5/5. RLE Strength illopsoas, quadriceps, tibialis [...] up in 6-8 weeks documented in this encounterMineral Area Regional Medical [id number] Miscellaneous Notes* Telephone Encounter - Veronica Baker - 08/15/2024 2:41 PM EST 08/15 HST order received Called PT LM to schedule sleep study. HST order & 08/13 Romario notes in epic With oral appliance * Telephone Encounter - Sammi Johns - 08/15/2024 2:41 PM EST PT called to schedule PT states she does not drive and has a hard time getting a ride to the hospital, asked if she couldget it mailed to her I informed the PT we do not mail the units out. She is going to wait until next month when she does a different test. Order deferred documented in this encounterMartin Memorial Hospital11-13-2024 Telephone encounter Note* Telephone Encounter - Veronica Baker - 08/15/2024 2:41 PM EST 08/15 HST order received Called PT LM to schedule sleep study. HST order & 08/13 Rom[facility] notes in [facility] With oral appliance [facility]11-13-2024 Telephone encounter Note* Telephone Encounter - Sammi Johns - 08/15/2024 2:41 PM EST PT called to schedule PT states she does not drive and has a hard time getting a ride to the hospital, asked if she couldget it mailed to her I informed the PT we do not mail the units out. She is going to wait until next month when she does a different test. Order deferred [facility]11-12-2024 Miscellaneous Notes* Telephone Encounter - Katelyn Osuna - 08/14/2024 12:15 PM EST 08/13 Order received Called PT LM to schedule sleep study. PSG Order and 08/13 Romario notes in [facility] With OMAD (does not need titration), ok to sleep on side documented in this encounterMartin Memorial Hospital11-12-2024 Telephone encounter Note* Telephone Encounter - Katelyn Osuna - 08/14/2024 12:15 PM EST 08/13 Order received Called PT LM to schedule sleep study. PSG Order and 08/13 Romario notes in [facility] With OMAD (does not need titration), ok to sleep on side [facility]11-11-20[facility] History of Present illness Narrative* Katherine Doss MD - 08/13/2024 2:30 PM EST Images from the original note were not included. [address] [place] [address] Patient: Angela Ingram Date of : 1985 Encounter Date: 08/13/2024 History of Present Illness: The patient is a 38 y.o. female, is here for follow up of MUKESH. Recently got a puppy and her sleep has been disrupted. Fitted OMAD from Dr. Abreu. Intermittent use. She has been told recently that she is snoring evenwith her oral device in. BT - 9 [...] AM 12/12/2023 12:00 PM 08/13/2024 2:00 PM Odin Sleepiness Scale Sitting and Reading 2 0 [...] saturation 84%, PSG March 2022, weight 273) previouslytried PAP therapy, currently using OMAD (snoring) 2. [...] past medical history, past social history, past surgicalhistory and problem list. Past Medical History: Diagnosis [...] by mouth 3 (three) times a day asneeded. JANUVIA 100 mg tablet Take 1 tablet [...] Activity Alcohol Use No documented in this [facility]11-11-2024 Instructions* Patient Instructions* Katherine Doss MD - 08/13/2024 2:30 PM EST 1. PSG with OMAD with side sleep 2. Please call Dr. Abreu to let him know you're snoring with the OMAD in 3. Symbicort as needed 4. Follow up in 6 months documented in this [facility]10-18-2024 History of Present illness Narrative* Laurent Sierra DPM - 07/20/2024 9:30 AM EDT Images from the original note were not included. Subjective Patient ID: Angela Ingram is a 38 y.o. female who presents [...] foot; with initial discomfort developing into more acutepain over the next week or so. Patient did not note any specific bruising; as such, did not seek treatment or radiographs. Symptoms are typically activity related; impacting ADLs and her ability to walk comfortably; generally relieved with relative rest. Persistent somewhat progressive symptoms over the past month or so. Aleve, typically on a daily basis, provides transient relief; is increasingly less effective. Therehas been no other specific treatment. Denies prodromal [...] by mouth Daily, Disp: , Rfl: HYDROcodone-acetaminophen ([place]) 5-325 MG tablet, , Disp: , Rfl: [...] pen-injector, INJECT 1 UNITS DOSE SUBCUTANEOUSLY ON TUESDAYOF EACH WEEK, Disp: , Rfl: pseudoephedrine ER [...] INJECT 0.5ml SUBCUTANEOUSLY (UNDER THE SKIN) ONCE AWEEK, Disp: , Rfl: Turmeric powder, as directed, [...] Bipolar disorder Daughter Diabetes Mother's Sister Lor Reffle Objective General Examination: GENERAL EXAMINATION: alert and [...] EXAM RIGHT FOOT: Moderate-fairly sharp point tenderness metatarsal- cuboid joint; without appreciable swelling, warmth or discoloration. Styloid process proper minimally tender. Cuboid groove and peroneal sheath non-tender. Mild tenderness over the bifurcate ligament. Metatarsal shafts and MTP joints non-tender. Radiology: Radiographs: 3 views right foot: Weight-bearing: DP, oblique, lateral: 07/20/2024: Unremarkable forfracture or stress fracture changes. Unremarkable for acute [...] understanding. Laurent Sierra DPM documented in this [facility]10-18-2024 Instructions* Patient Instructions* Laurent Sierra DPM - 07/20/2024 9:30 AM EDT As noted documented in this [facility] [facility] History of Present illness Narrative* Laurent Sierra DPM - 07/18/2024 2:15 PM EDT Images from the original note were not included. Subjective Patient ID: Angela Ingram is a 38 y.o. female who presents [...] by mouth Daily, Disp: , Rfl: HYDROcodone-acetaminophen ([place]) 5-325 MG tablet, , Disp: , Rfl: [...] pen-injector, INJECT 1 UNITS DOSE SUBCUTANEOUSLY ON TUESDAYOF EACH WEEK, Disp: , Rfl: pseudoephedrine ER [...] INJECT 0.5ml SUBCUTANEOUSLY (UNDER THE SKIN) ONCE AWEEK, Disp: , Rfl: Turmeric powder, as directed, Disp: , Rfl: nitrofurantoin, macrocrystal-monohydrate, (Macrobid) 100 MG capsule, TAKE 1 CAPSULE BY MOUTH EVERY 12 HOURS WITH FOOD, Disp: , Rfl: Allergies Metformin, Loratadine, Methylprednisolone, and Oxycodone Past Surgical History Past Surgical History: Procedure Laterality Date CHOLECYSTECTOMY OTHER SURGICAL HISTORY 02/06/2021 Neurostimulator for the bladder - TapImmunetronic device placed WISDOM TOOTH EXTRACTION WRIST SURGERY [...] understanding. Laurent Sierra DPM documented in this [facility]10-16-2024 Instructions* Patient Instructions* Laurent Sierra DPM - 07/18/2024 2:15 PM EDT As noted documented in this [facility]08-26-2024 Miscellaneous Notes* Telephone Encounter - Rosalina Mccarthy - 05/28/2024 2:49 PM EDTSummary: Surgery Time Change Drug Safety Coordinator sent message to patient that her surgery on 07/16/2024 @ [facility] has a time change. Arrival: 9:30 AM Surgery: 11:30 AM [facility] Telephone encounter Note* Telephone Encounter - Rosalinadesirae Mccarthy - 05/28/2024 2:49 PM EDT Summary: Surgery Time Change Drug Safety Coordinator sent message to patient that her surgery on 07/16/2024 @ [facility] has a time change. Arrival: 9:30 AM Surgery: 11:30 AM [facility] Miscellaneous Notes* Telephone Encounter - Rosalina Fabio - 04/24/2024 9:47 AM EDTSummary: New Surgery Date Drug Safety Coordinator rescheduled procedure to 07/16/2024 @ [facility] with Dr Pina; PAT appt also rescheduled... updated surgery letter sent to patient thru My Chart and by mail.. surgeon informed of date and time. documented in this [facility]07-[facility] Telephone encounter Note* Telephone Encounter - Rosalina Mccarthy - 04/24/2024 9:47 AM EDT Summary: New Surgery Date Drug Safety Coordinator rescheduled procedure to 07/16/2024 @ [facility] [address] Pina; PAT appt also rescheduled... updated surgery letter sent to patient thru My Chart and by mail.. surgeon informed of date and time. [facility]06-27[facility] Miscellaneous Notes* Telephone Encounter - Rosalina Mccarthy - 03/29/2024 9:48 AM EDTSummary: New Surgery Date Drug Safety Coordinator rescheduled patient's surgery date to 06/11/2024 @ [facility] [address] Pina... PAT appt also rescheduled... updated letter sent to patient thru My Chart and by mail documented [facility] Telephone encounter Note* Telephone Encounter - Rosalina Mccarthy - 03/29/2024 9:48 AM EDT Summary: New Surgery Date Drug Safety Coordinator rescheduled patient's surgery date to 06/11/2024 @ [facility] Pina... PAT appt also rescheduled... updated letter sent to patient thru My Chart and by mail [facility] Miscellaneous Notes* Telephone Encounter - Rosalina Mccarthy - 03/20/2024 11:09 AM EDTSummary: Surgery 05/14/2024 Drug Safety Coordinator scheduled patient for 05/14/2024 @ [facility] (due to BMI) with Dr Pina.. PAT phone call also scheduled... surgeon informed of date and time... surgery letter sent thru My Chart and by mail.. all documents scanned into chart. *Patient also reminded to schedule medical clearance with PCP documented in this encounterMartin [facility]06-[facility] Telephone encounter Note* Telephone Encounter - Rosalina Mccarthy - 03/20/2024 11:09 AM EDT Summary: Surgery 05/14/2024 Drug Safety Coordinator scheduled patient for 05/14/2024 @ [facility] (due to BMI) with Dr Pina.. PAT phone call also scheduled... surgeon informed of date and time... surgery letter sent thru My Chart and by mail.. all documents scanned into chart. *Patient also reminded to schedule medical clearance with PCP [facility] History of Present illness Narrative* Mikayla Barclay MD - 03/06/2024 2:15 PM EDT Images from the original note were not included. Chief Complaint: Contraception SUBJECTIVE HPI Angela Ingram is a 38 y.o. who presents to discuss sterilization. Patient reports her is getting out of residential this year and she would like peace of mind aboutpregnancy. She currently has a Mirena IUD that [...] reports she is willing to take these risksto ease her mind . The patient has [...] pain Chronic kidney failure Depression Diabetes mellitus ([facility]) Eczema Failure to thrive (child) GERD (gastroesophageal [...] by mouth 3 (three) times a day asneeded. JANUVIA 100 mg tablet Take 1 tablet [...] normal. Behavior: Behavior normal. ASSESSMENT & PLAN Angela Ingram is a 38 y.o. who presents to [...] alternative method with equal or better effectiveness rateof 2 per 1,000 pregnancies. 1. Tubal ligation/Bilateral Salpingectomy Procedure Discussed This is a laparoscopic procedure, which means two to three small incision will be made in the abdomen. Then heat to seal the tubes shut, or the use of rings or clips to close the fallopian tubes willbe used to ligate the tubes. Another option [...] of ovarian cancer. There is also no increasedrisk to performing salpingectomy instead of tubal ligation. [...] dizziness, Nausea, Shoulder pain, Abdominal cramps, Gassy orbloated feeling, Sore throat (from the breathing tube [...] her Mirena IUD in place. Patient Name: Angela Ingram : [id number] Age: 38 y.o. Patient Contact Number: [phone] Diagnosis: Desire for sterilization Procedure:Laparoscopic salpingectomy ASA level: III Physician: Dr. Pina Outpatient Pre op appt? Yes Medical Clearance? Yes Specialty? PCP Mikayla Barclay MD Patient scheduled for May 14. home care scheduler in the room to discuss instructions with the patient. Medicaid and surgical consents obtained at bedside with witness. Type 2 diabetes: Last HB A1c at 5.4 per patient, will obtain medical clearance from primary care physician prior to surgery. Patient counseled along with Dr. Pina. Mikayla Barclay MD ObGyn Resident PGY4 * Sue Caban RN - 03/06/2024 2:15 PM EDT Pt is here for a tubal consult Pt has no other concerns at this time * Beatrice Pina DO - 03/06/2024 2:15 PM EDT Attending Attestation: I saw the patient. I [...] surgery. Beatrice Pina DO documented in this encounterMartin [facility]05-21-[facility] History of Present illness Narrative* Rehana Senior DO - 02/21/2024 11:00 AM EDT Subjective Patient ID: Angela Ingram is a 38 y.o. female who presents today to discuss elective tubal ligation. Patient has Mirena IUD in place for control. She does not have a menses with the Mirena in place. She has had 1 and 1 live . She states she does not want anymore children. Patient has previously had a cholecystectomy and a vagal nerve stimulator placement. Patientis medical history is complicated by type 2 diabetes mellitus, hypertension, hypothyroidism, asthma, poor wound healing, chronic kidney failure, anxiety depression, GERD, and morbid obesity. She doessee lizbeth Carreon, CHRISTINE for management of the above. Chief Complaint: [...] past medical history, past social history, past surgicalhistory, problem list, and medication reconciliation was completed including current medication andpost discharge medication. Review of Systems Constitutional: negative HEENT: Wears glasses Cardiovascular: Hypertension on medications Respiratory: Asthma on medications Gastrointestinal: GERD on medications E Commerce Strategist: Mirena IUD in place desires sterilization Psych: [...] 2. Obesity, morbid, BMI 50 or higher ([facility]) 3. Type 2 diabetes mellitus with diabetic polyneuropathy, without long-term current use of insulin ([facility]) 4. Chronic ulcer of right midfoot limited to breakdown of skin ([facility]) 5. Psychogenic nonepileptic seizure 6. Moderate recurrent major depression ([facility]) 7. Shortness of breath 8. Learning disability 9. Primary hypertension 10. Asthma, unspecified asthma severity, unspecified whether complicated, unspecified whether persistent 11. Request for sterilization Plan 1. We did discuss with patient that due to her BMI being 55.66 kilogram/m2 she would not qualify tohave an elective procedure performed here as anesthesia does have a parameter of less than 50. She does also have multiple medical comorbidities which does make her a poor candidate for elective surgery which was also discuss with patient today. We did reviewed and explained laparoscopic tubal ligation risks and benefits . We discussed possible need for open surgical procedure. [place]. 2. We advised a preoperative surgical clearance from an internal medicine physician due to patient's multiple medical comorbidities 3. Referral to [facility] placed secondary to the above 40 minutes was spent in the room discussing surgical procedures patient's medical health and risk of the elective surgery with patient as well as reviewing her chart placing consults and completing the charting documented in this encounterMartin [facility]05-06-2024 History of Present illness Narrative* Latanya Santos APRN-ARUN - 02/06/2024 8:30 AM EDT Annual Well Woman Visit 02/06/2024 Rossi Ingram is a 38 y.o. 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 Periods are rare due to IUD.No pelvic pain. Patient declined STD testing today. [...] past medical history, past social history, past surgicalhistory and problem list. MEDICAL HX Past Medical [...] by mouth 3 (three) times a day asneeded. JANUVIA 100 mg tablet Take 1 tablet [...] Thought content normal. Judgment: Judgment normal. Assessment/Plan: Angela was seen today for annual exam. 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 Medicaid tubal consent signed today. RTO with a physician for consult. Next pap due 2024 per ASCCP guidelines. Discussed taking a multivitamin. Discussed Calcium and Vitamin D for prevention of osteoporosis. Discussed recommendations for HPV vaccine between 9-45 yo. Can be received at [facility] or the [facility] department. Discussed need for yearly mammogram after 40 yo. Discussed colon cancer screening recommendations to begin at 45 yo, patient to discuss with PCP. All questions answered. RAFAELA FLORES [facility] Latanya Santos APRN-TARIK Ayon 02/06/24 0902 documented in this encounterMartin [facility] Hospital03-11-2024 History of Present illness Narrative* Katherine Doss MD - 12/12/2023 12:15 PM EDT Images from the original note were not included. [address] [place] [address] Patient: Angela Ingram Date of : 1985 Encounter Date: 12/12/2023 [...] PM 03/22/2022 8:25 PM 04/11/2023 9:00 AM Odin Sleepiness Scale Sitting and Reading 2 0 [...] Katherine Doss MD Pulmonary and Sleep Medicine [facility] Past Medical, Family, and Social History Update: The following portions of the patient's history were reviewed and updated as appropriate: allergies, current medications, past family history, past medical history, past social history, past surgicalhistory and problem list. Past Medical History: Diagnosis [...] by mouth 3 (three) times a day asneeded. levothyroxine (SYNTHROID, LEVOTHROID) 50 MCG tablet 1 [...] Activity Alcohol Use No documented in this encounterMartin [facility] Hospital03-11-2024 Instructions* Patient Instructions* Katherine Doss MD - 12/12/2023 12:15 PM EDT 1. Dentist to fit for oral mandibular advancement device (OMAD) 2. Continue to work on weight loss 3. Discussion about inspire, not a candidate at this time 4. Follow up in 6 months documented in this encounterMartin [facility] HospitalEvaluation note* Diagnosis Onset Date Resolution Status Anxiety wascfOtjbp[id number] HypertensionacuteOSA (obstructive sleep apnea)acutePain with urinationacute Seasonal allergiesacuteThyroid diseaseacuteType 2 diabetes mellitusacute [id number] pain of right thighacuteType 2 diabetes mellitusacuteUTI (urinary tract infection)[facility] Work Phone: Evaluation note* Diagnosis Dystrophic nail- Primary Other specified disease of nail Onychocryptosis Ingrowing nail Pain around toenail, right foot Pain around toenail, left foot documented in this encounter [facility] HealthcareEvaluation note* Diagnosis Capsulitis of right foot- Primary Sprain of ligament of tarsometatarsal joint of right foot, sequela Pain in joint of right foot Difficulty walking Difficulty in walking documented in this encounter [facility] HealthcareEvaluation note* Diagnosis MUKESH (obstructive sleep apnea)- Primary Obstructive sleep apnea (adult) (pediatric) documented in this encounter [facility] SystemEvaluation note* Diagnosis Paresthesia Disturbance of skin sensation documented in this encounter [facility] HealthcareEvaluation note* Diagnosis Paresthesia- Primary Disturbance of skin sensation documented in this encounter [facility] HealthcareEvaluation note* Diagnosis Moderate persistent asthma, unspecified whether complicated documented in this encounter [facility]* Diagnosis MUKESH (obstructive sleep apnea) Obstructive sleep apnea (adult) (pediatric) documented in this encounter [facility]* Diagnosis Well woman exam with routine gynecological exam- Primary Routine gynecological examination Standardized adult depression screening tool completed Request for sterilization documented in this encounter [facility]* Diagnosis Moderate persistent asthma, unspecified whether complicated documented in this encounter [facility]* Diagnosis Request for sterilization- Primary Obesity, morbid, BMI 50 or higher ([facility]) Type 2 diabetes mellitus with diabetic polyneuropathy, without long-term current use of insulin ([facility]) Chronic ulcer of right midfoot limited to breakdown of skin ([facility]) Psychogenic nonepileptic seizure Moderate recurrent major depression ([facility]) Major depressive disorder, recurrent episode, moderate Shortness of breath Learning disability Other specific developmental learning difficulties Primary hypertension Unspecified essential hypertension Asthma, unspecified asthma severity, unspecified whether complicated, unspecified whether persistent Pre-op exam documented in this encounter [facility]* Diagnosis Preoperative exam for gynecologic surgery- Primary Obesity, morbid, BMI 50 or higher ([facility]) Type 2 diabetes mellitus with diabetic polyneuropathy, without long-term current use of insulin ([facility]) Chronic ulcer of right midfoot limited to breakdown of skin ([facility]) Psychogenic nonepileptic seizure Moderate recurrent major depression ([facility]) Major depressive disorder, recurrent episode, moderate Shortness of breath Learning disability Other specific developmental learning difficulties Primary hypertension Unspecified essential hypertension Asthma, unspecified asthma severity, unspecified whether complicated, unspecified whether persistent Request for sterilization [facility]* Diagnosis MUKESH (obstructive sleep apnea)- Primary Obstructive sleep apnea (adult) (pediatric) documented [facility]* Diagnosis Polyneuropathy Unspecified hereditary and idiopathic peripheral neuropathy Paresthesia Disturbance of skin sensation documented in this encounter [facility] HealthcareEvaluation noteNo assessment information availableClinton Memorial Hospital Work Phone: Evaluation note* Diagnosis Well woman exam with routine gynecological exam- Primary Routine gynecological examination Encounter for screening mammogram for malignant neoplasm of breast Standardized adult depression screening tool completed Pap smear, as part of routine gynecological examination Screening for malignant neoplasm of the cervix documented in this [facility]* Diagnosis Morbid obesity ([facility])- Primary Morbid obesity [facility]* Diagnosis Onychocryptosis- Primary Ingrowing nail Dystrophic nail Other specified disease of nail Pain around toenail, right foot Pain around toenail, left foot Difficulty walking Difficulty in walking documented in this encounter [facility] HealthcareEvaluation note* Diagnosis Intermittent asthma, unspecified asthma severity, unspecified whether complicated- Primary documented [facility]* Diagnosis MUKESH (obstructive sleep apnea)- Primary Obstructive sleep apnea (adult) (pediatric) Morbid obesity ([facility])- Primary Morbid obesity Pre-bariatric surgery nutrition evaluation documented in this [facility]* Diagnosis Morbid obesity ([facility])- Primary Morbid obesity Pre-bariatric surgery nutrition evaluation documented in [facility]* Diagnosis Morbid obesity (CMS-HCC)- Primary Morbid obesity Pre-bariatric surgery nutrition evaluation documented in this [facility]* Diagnosis Shortness of breath- Primary Morbid obesity ([facility]) Morbid obesity documented in this encounter [facility] SystemInstructionsNot on filedocumented in this encounter [facility] SystemInstructionsNot on filedocumented in this encounter [facility] SystemInstructions* Attachments The following attachments cannot be sent through Care Everywhere. * Fallopian Tube Removal (Ethiopian) * Health Risks of a High BMI (Ethiopian) documented in this encounterProCommunity [facility] SystemInstructionsNot on file documented in this encounterProCommunity Hospital Health SystemInstructionsNot on file documented in this encounterProCommunity Hospital Health SystemInstructionsNot on file documented in this encounterProCommunity Hospital Health SystemInstructionsNot on file documented in this encounterProCommunity Hospital Health SystemInstructionsNot on file documented in this encounterProOhio[facility] SystemInstructions* Attachments The following attachments cannot be sent through Care Everywhere. * Calcium and vitamin D for bone health (Ethiopian) * Health risks of obesity (Ethiopian) documented in this encounterProCommunity Hospital Health SystemInstructionsNot on file documented in this encounterProCommunity Hospital Health SystemInstructionsNot on file documented in this encounterProCommunity Hospital Health SystemInstructionsNot on file documented in this encounterProCommunity Hospital Health SystemInstructions* Attachments The following attachments cannot be sent through Care Everywhere. * Mediterranean diet (Ethiopian) documented in this encounterProCommunity Hospital Health SystemReason for referral (narrative)* Consultation (Routine) - Pending ReviewSpecialtyDiagnoses / ProceduresReferred By ContactReferred To ContactObstetrics and Gynecology Diagnoses Obesity, morbid, BMI 50 or higher ([facility]) Type 2 diabetes mellitus with diabetic polyneuropathy, without long-term current use of insulin ([facility] Chronic ulcer of right midfoot limited to breakdown of skin ([facility]) Psychogenic nonepileptic seizure Moderate recurrent major depression ([facility]) Shortness of breath Learning disability Primary hypertension Asthma, unspecified asthma severity, unspecified whether complicated, unspecified whether persistent Request for sterilization Rehana Senior DO [address] [place] [address] [facility] [address] [place] [address] Referral IDStatusReasonStart DateExpiration DateVisits RequestedVisits [id number] Review Specialty Services Required / 3[employer] [facility] HospitalReason for referral (narrative)No reason for referral information availableClinton Memorial Hospital Work Phone: Reason for visit Narrative* Misc (Routine) - Closed SpecialtyDiagnoses / ProceduresReferred By ContactReferred To Contact Diagnoses MUKESH (obstructive sleep apnea) Procedures Home sleep study Katherine Doss MD [address] [place] [address] Phone: tel: fax: Referral IDStatusReasonStart DateExpiration DateVisits RequestedVisits [id number]/13/202411/13/202511 [facility] Discharge Instructions * Instructions* Suze Rodrigues RN [...] please feel free to call us at [phone]. Follow-up should be scheduled for 1 week. -Regular Diet. -Resume all home medications. 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 [...] MD documented in this encounter Advance Directives TypeDate RecordedPatient RepresentativeExplanationAdvance Directives and Living WillPower of AttorneyTypeDate RecordedPatient RepresentativeExplanationAdvance Directives and Living WillPower of AttorneyTypeDate RecordedPatient RepresentativeExplanationACP-Advance DirectiveACP-Power of [employer] Sales Staff Advance Directive Response Recorded Date/ Time Advance Directives No November 12:54pm Advance Directive Response Recorded Date/ Time Advance Directives No July 25, 2024 10:23am Advance Directive Response Recorded Date/ Time Advance Directives No April 17 1:35pm Summary Purpose Family History Relationship Condition Age at Onset Recorded Date/T zacarias father Hypertension Unknown Chronic obstructive pulmonary diseaseUnknownAsthmaUnknownHeart diseaseUnknown High blood cholesterolUnknown Assessments Diagnosis Post-op pain- Primary Other acute postoperative pain Chief Complaint and Reason for Visit Chief Complaint establish NeuropathyReason for VisitAnxiety Asthma Depression [id number] Hyperlipidemia Hypertension MUKESH (obstructive sleep apnea) Pain with urination Seasonal allergies Thyroid disease Type 2 diabetes mellitus [id number] Neuropathic pain of right thigh Type 2 diabetes mellitus UTI (urinary tract infection) Chief Complaint Admit Date wellness April 17, 2025 1:01 pm Chief Complaint Admit Date wellness April 17, 2025 1:01 pm 6 week f/u May 29, 2025 1: 05pm Reason for Visit Admit Date Anxiety April 17, 2025 1:01 pm Asthma April 17, 2025 1:01 pm Body mass index [BMI] 50.0-59.9, adult J duane 2024 1:01pm Depression April 17, 2025 1:01 pm Diabetic neuropathy associat ed with diabetes mellitus due to underlying April 17, 2025 1:01pm Hyperlipidemia April 17, 2025 1:01 pm Hypertension April 17, 2025 1:01 pm MUKESH (obstructive sleep apnea) April 17, 2025 1:01pm Seasonal allergies April 17, 2025 1:01 pm Thyroid disease April 17, 2025 1:01 pm Type 2 diabetes mellitus April 17, 2025 1:01pm Anxiety May 29, 2025 1: 05pm Asthma May 29, 2025 1: 05pm Body mass index [BMI] 50.0-59.9, adult A ugust 2024 1:05pm Depression May 29, 2025 1: 05pm Diabetic neuropathy associat ed with diabetes mellitus due to underlying May 29, 2025 1:05pm Hyperlipidemia May 29, 2025 1: 05pm Hypertension May 29, 2025 1: 05pm MUKESH (obstructive sleep apnea) May 1:05pm Seasonal allergies May 29, 2025 1: 05pm Thyroid disease May 29, 2025 1: 05pm Type 2 diabetes mellitus May 29 1:05pm Wellness examination May 29, 2025 1 :05pm Chief Complaint Admit Date wellness April 17, 2025 1:01 pm 6 week f/u May 29, 2025 1: 05pm Head Sores, Discuss Meds June 10, 2025 8:41am Reason for Visit Admit Date Anxiety April 17, 2025 1:01 pm Asthma April 17, 2025 1:01 pm Body mass index [BMI] 50.0-59.9, adult J duane 2024 1:01pm Depression April 17, 2025 1:01 pm Diabetic neuropathy associat ed with diabetes mellitus due to underlying April 17, 2025 1:01pm Hyperlipidemia April 17, 2025 1:01 pm Hypertension April 17, 2025 1:01 pm MUKESH (obstructive sleep apnea) April 17, 2025 1:01pm Seasonal allergies April 17, 2025 1:01 pm Thyroid disease April 17, 2025 1:01 pm Type 2 diabetes mellitus April 17, 2025 1:01pm Anxiety May 29, 2025 1: 05pm Asthma May 29, 2025 1: 05pm Body mass index [BMI] 50.0-59.9, adult A ugust 2024 1:05pm Depression May 29, 2025 1: 05pm Diabetic neuropathy associat ed with diabetes mellitus due to underlying May 29, 2025 1:05pm Hyperlipidemia May 29, 2025 1: 05pm Hypertension May 29, 2025 1: 05pm MUKESH (obstructive sleep apnea) May 1:05pm Seasonal allergies May 29, 2025 1: 05pm Thyroid disease May 29, 2025 1: 05pm Type 2 diabetes mellitus May 29 1:05pm Wellness examination May 29, 2025 1 :05pm Lesion of skin of scalp June 10, 2 025 8:41am Additional Source Comments Reason for Visit (unrecogniz ed section and content) StatusReasonSpecialtyDiagnoses / ProceduresReferred By ContactReferred To Contact Diagnoses Urinary incontinence in female DX URINARY INCONTINENCE Procedures NV COMPLEX CYSTOMETROGRAM VOIDING PRESSURE STUDIES URODNYAMICS Kolby Ellis MD [address] [facility] [address] [place] [address] [facility] StatusReasonSpecialtyDiagnoses / ProceduresReferred By ContactReferred To Contact Diagnoses Urinary incontinence DX URINARY INCONTINENCE Procedures NV INC IMPLTJ NEUROSTIMULATOR ELTRD SACRAL NERVE INTERSTIM STAGE ONE - LEANDRO Kolby Ellis MD [address] [facility] [address] [place] [address] [facility] ReasonCommentsDM Foot CarePresents for nail. Thinks she may have twisted right ankle, happened maybe in May or March, stillhurts. Did not seek any medical txt at the time. States it sometimes swells, no xrays. PCP: Lizbeth ORTEGA 05/03/24, A1C: 2.5, BS: n/a, SS: 7.5EEReasonCommentsFoot PainEstablished pt presents today for x-rays for right ankle pain.ReasonCommentsFollow-upENT: did not follow up withOMAD: having issues- seeing dentist for adjustmentsSleep Apnea DME:HartReasonCommentsPolyneuropathyReasonCommentsMed RefillReasonCommentsAnnual ExamReasonCommentstubal consultSpecialtyDiagnoses / ProceduresReferred By ContactReferred To ContactObstetrics and Gynecology Diagnoses Obesity, morbid, BMI 50 or higher ([facility]) Type 2 diabetes mellitus with diabetic polyneuropathy, without long-term current use of insulin ([facility]) Chronic ulcer of right midfoot limited to breakdown of skin ([facility]) Psychogenic nonepileptic seizure Moderate recurrent major depression ([facility]) Shortness of breath Learning disability Primary hypertension Asthma, unspecified asthma severity, unspecified whether complicated, unspecified whether persistent Request for sterilization Rehana Senior DO [address] [place] [address] [facility] [address] [place] [address] Referral IDStatusReasonStart DateExpiration DateVisits RequestedVisits [id number] Review Specialty Services Required /[id number] ConsultReasonCommentsFollow-upSleep ApneaDME: MSCNot using PAP machineSampled Wisp Fit Pack at last visitReasonOnset DateCommentsSleep Lab08/14/2024SG OrderReasonOnset DateCommentsSleep Lab 08/15/2024HSTReasonCommentsPeripheral NeuropathyReasonCommentsGynecologic Exam ReasonCommentsNew PatientNeed MNT 1 of 3ReasonCommentsDM Foot CareEstablished patient presents today for routine diabetic nail care. PCP: Lizbeth Snyder LV 01/2025, NV: 05/29/25, A1C: 5.6, BS: hasn't check, doesn't have monitor, SS: 7.5ReasonCommentsAsthmaCurrently not using inhalersSleep ApneaUses OMADReason CommentsNutrition CounselingSpecialtyDiagnoses / ProceduresReferred By Contact Referred To ContactNutrition Diagnoses Morbid obesity ([facility]) Charlene Cardenas MD [address] [place] [address] Phone: tel: fax: Referral IDStatusReasonStart DateExpiration DateVisits RequestedVisits [id number] Review Specialty Services Required [id number] PatientLS TMP, NO RECENT TESTING DONE, NO DEVICES, COVID 2020, SCHED W/PTSpecialtyDiagnoses / ProceduresReferred By ContactReferred To ContactCardiology Diagnoses Morbid obesity ([facility]) Charlene Cardenas MD [address] [place] [address] Phone: tel: fax: [facility] [address] [address] Phone: tel: fax: Referral IDStatusReasonStart DateExpiration DateVisits RequestedVisits [id number] Review Specialty Services Required / INFORMATION SOURCE (unrecogn ized section and content) DATE CREATED AUTHOR 07/07/2020 [facility] DATE CREATED AUTHOR AUTHOR'S ORGANIZ ATION 12/22/2020 [facility] DATE CREATED AUTHOR AUTHOR'S ORGANIZ ATION 01/06/2021 [facility] DATE CREATED AUTHOR AUTHOR'S ORGANIZ ATION 09/11/2021 [facility] DATE CREATED AUTHOR AUTHOR'S ORGANIZ ATION 02/16/2023 [facility] DATE CREATED AUTHOR AUTHOR'S ORGANIZ ATION 02/21/2024 [facility] DATE CREATED AUTHOR AUTHOR'S ORGANIZ ATION 05/24/2025 [facility] DATE CREATED AUTHOR AUTHOR'S ORGANIZ ATION 05/28/2025 [facility] DATE CREATED AUTHOR AUTHOR'S ORGANIZ ATION 05/28/2025 [facility] DATE CREATED AUTHOR AUTHOR'S ORGANIZ ATION 07/10/2025 [facility] DATE CREATED AUTHOR AUTHOR'S ORGANIZ ATION 07/16/2025 [facility] Ordered Prescriptions (unrec ognized section and content) PrescriptionSigDispensedRefillsStart DateEnd Date cephALEXin (KEFLEX) 500 MG capsule Take 1 capsule by mouth 3 times daily for 5 days 15 capsule / traMADol (ULTRAM) 50 MG tablet Indications:Post-op painTake 1 tablet by mouth every 6 hours as needed for Pain for up to 10 days. 10 tablet /10/2020 Care Teams (unrecognized sec tion and content) Team Status: Active Member Role Status Dates Kolby Ellis MD Specialist Active Laurent Rusher , DPMSpecialistActiveJennifer DNADRE Snyder ONLINE EDITOR-CPrimary Care ProviderActive Team Status: Inactive Member Role Status Dates Lizbeth Snyder APRN ONLINE EDITOR-C Primary Care Provider, Attending Provider Active Start: December 02, 2023 End: December 02, 2023 Team Status: Inactive Member Role Status Dates Lizbeth Snyder APRN ONLINE EDITOR-C Primary Care Provider, Attending Provider Active Start: February 09, 2024 End: February 09, 2024Team MemberRelationshipSpecialtyStart DateEnd Date Lizbeth Snyder NP [address] [place] [address] PCP - [facility] Medicine03/14/24 Ingrid Culver MD [address] [place] [address] Referring PhysicianWell[facility]08/17/23Team MemberRelationshipSpecialtyStart DateEnd Date Lizbeth Snyder NP [address] [place] [address] [facility] - [facility]03/14/24 Ingrid Culver MD [address] [place] [address] Referring PhysicianBournewood Hospital Wxyesahj99/15/23Team MemberRelationshipSpecialtyStart DateEnd Date Lizbeth Snyder NP [address] [place] [address] PCP - [facility]03/14/24 Ingrid Culver MD [address] [place] [address] Referring PhysicianFamily Hwgcnphs48/15/23Team MemberRelationshipSpecialtyStart DateEnd Date Lizbeth Snyder NP [address] [place] [address] PCP - GeneralFamily Medicine03/14/24 [place] [address] [place] [address] Referring PhysicianBournewood Hospital Qdideohh39/15/23Team MemberRelationshipSpecialtyStart DateEnd Date Lizbeth Snyder NP [address] [place], [place] [id number] [facility] - [facility] Medicine03/14/24 Ingrid Culver MD [address] [place] [address] Referring PhysicianBournewood Hospital Lxrpvhfy01/15/23Team MemberRelationshipSpecialtyStart DateEnd Date Lizbeth Snyder APRN-ONLINE EDITOR [address] [place] [address] PCP - General12/10/23Team MemberRelationshipSpecialtyStart DateEnd Date Lizbeth Snyder NP [address] [place] [address] P[facility] - [facility] Medicine03/14/24 Ingrid Culver MD [address] [place] [address] Referring PhysicianFamily Zgrofbwy31/15/23 Laurent Ragland MD [address] [place] [address] Referring YndjsrmcnQzqxzgmaf62/9/24 Yamile Lofton PA [address] [place] [address] Physician UyalitimfQjxbiyvpk01/9/24Team MemberRelationshipSpecialtyStart DateEnd Date Lizbeth Snyder ONLINE EDITOR [address] [place] [address] [place] [address] PCP - GeneralFamily Medicine03/14/24 Ingrid Culver MD [address] [place] [address] Referring PhysicianFamily Lmjgxrtm25/15/23 Laurent Ragland MD [address] [place] [address] Referring VusxnhsltAgbnnxsno84/9/24 Yamile Lofton PA [address] [place] [address] Physician NhnrscpghJybuovzyh44/9/24Team MemberRelationshipSpecialtyStart DateEnd Lizbeth Snyder ONLINE EDITOR [address] [place] [address] [place] [address] PCP - GeneralFamily Medicine03/14/24 Ingrid Culver MD [address] [place] [address] Referring PhysicianFamily Orquifha75/15/23 Laurent Ragland MD [address] [place] [address] Referring BkcpimpciWpsvizobm56/9/24 Yamile Lofton PA [address] [place] [address] Physician EpdibgafoBbobgjsib27/9/24Team MemberRelationshipSpecialtyStart DateEnd Date Lizbeth Snyder ADAPTIVE PHYSICAL EDUCATION SPECIALIST-ONLINE EDITOR [address] [facility] [place] [address] PCP - General12/10/23Team MemberRelationshipSpecialtyStart DateEnd Date Lizbeth Snyder ADAPTIVE PHYSICAL EDUCATION SPECIALIST-ONLINE EDITOR [address] [facility] PCP - General12/10/23Team MemberRelationshipSpecialtyStart DateEnd Date Lizbeth Snyder ADAPTIVE PHYSICAL EDUCATION SPECIALIST-ONLINE EDITOR [address] [place] [address] PCP - General12/10/23Team MemberRelationshipSpecialtyStart DateEnd Date Ingrid Culver, ADAPTIVE PHYSICAL EDUCATION SPECIALIST-COLLOID MILL OPERATOR [address] [facility] [address] [place] [address] PCP - GeneralFamily [facility]10/22/19Team MemberRelationshipSpecialtyStart DateEnd Date Lizbeth Snyder ADAPTIVE PHYSICAL EDUCATION SPECIALIST-ONLINE EDITOR [address] [facility] [place] [address] PCP - General12/10/23Team MemberRelationshipSpecialtyStart DateEnd Date Lizbeth Snyder APRN-ONLINE EDITOR [address] [place] [address] PCP - General12/10/23Team MemberRelationshipSpecialtyStart DateEnd Date Lizbeth Snyder APRN-ONLINE EDITOR [address] [place] [address] PCP - General12/10/23Team MemberRelationshipSpecialtyStart DateEnd Date Lizbeth Snyder APRN-ONLINE EDITOR [address] [place] [address] PCP - General12/10/23Team MemberRelationshipSpecialtyStart DateEnd Date Lizbeth Snyder APRN-ONLINE EDITOR [address] [place] [address] PCP - General12/10/23Team MemberRelationshipSpecialtyStart DateEnd Date Lizbeth Snyder NP [address] [place] [address] Scotty [place], [facility]11 PCP - Generalmily Medicine03/14/24 Ingrid Culver MD [address] [place] [address] Referring PhysicianFamily Hqiyevic43/15/23 Laurent Ragland MD [address] [place] [address] Referring IstpldhtqTllrzvgxn35/9/24 Yamile Lofton PA [address] [place] [address] Physician InoijyvdxQbuigdvdh48/9/24Team MemberRelationshipSpecialtyStart DateEnd Date Lizbeth Snyder NP [address] [facility] [place] [id number] PCP - [facility]ally Medicine03/14/24 Ingrid Culver MD [address] [place] [address] Referring PhysicianFamily Kocpvwni55/15/23 Laurent Ragland MD [address] [place] [address] Referring ZstafbpknCikhoindb75/9/24 Yamile Lofton PA [address] [place] [id number] Physician PcujnhuueIdmcgvgtv68/9/24Team MemberRelationshipSpecialtyStart DateEnd Date Lizbeth Snyder APRN-CHRISTINE [address] [facility] [place] [address] PCP - General12/10/23 Team Status: Inactive Member Role Status Dates Lizbeth Snyder APRN ONLINE EDITOR-C Primary Care Provider Active Start: April 17, 2025 End: April 17, 2025Lizbeth Snyder APRN ONLINE EDITOR-CAttending ProviderActive Start: April 17, 2025 End: April 17, 2025Team MemberRelationshipSpecialtyStart DateEnd Date Lizbeth Snyder APRN-NP [address] [facility] [place] [address] PCP - General12/10/23Team MemberRelationshipSpecialtyStart DateEnd Date Lizbeth Snyder APRN-CHRISTINE [address] [facility] [place] [address] PCP - General12/10/23Team MemberRelationshipSpecialtyStart DateEnd Date Lizbeth Snyder NP [address] [facility] [place] [id number] PCP - GeneralFamily Medicine03/14/24 Ingrid Culver MD [address] [place] [address] Referring PhysicianFamily Umjfhstv55/15/23 Laurent Ragland MD [address] [facility] [place] [id number] Referring HfifwzaofUjijjccyh04/9/24 Yamile Lofton PA [address] [place] [id number] Physician DkhlxtiyaIhcjrdhzx29/9/24Team MemberRelationshipSpecialtyStart DateEnd Date Lizbeth Snyder NP [address] [facility] [place] [place] [address] PCP - GeneralFamily Medicine03/14/24 Ingrid Culver MD [address] [place] [address] Referring PhysicianFamily Zfstlpgx15/15/23 Laurent Ragland MD [address] [facility] [place] [address] Referring SokzaiztpLoygtogwf90/9/24 Yamile Lofton PA [address] [place], [place] [address] Physician XjzqubjwdQjisioyrw33/9/24Team MemberRelationshipSpecialtyStart DateEnd Date Lizbeth Snyder APRN-NP [address] [place] [place] [address] PCP [facility]12/10/23 Team Status: Active Member Role Status Dates Lizbeth Snyder APRN ONLINE EDITOR-C Primary Care Provider Active Start: May 29, 2025 Lizbeth Snyder APRN ONLINE EDITOR-CAttending ProviderActiveStart: May 29, 2025 Team Status: Inactive Member Role Status Dates Lizbeth Snyder APRN ONLINE EDITOR-C Primary Care Provider Active Start: May 29, 2025 End: May 29, 2025Lizbeth Snyder APRN ONLINE EDITOR-CAttending ProviderActive Start: May 29, 2025 End: May 29, 2025Team MemberRelationshipSpecialtyStart DateEnd Date Lizbeth Snyder APRN-NP [address] [place] [address] PCP General12/10/23 Team Status: Inactive Member Role Status Dates Lizbeth Snyder APRN ONLINE EDITOR-C Primary Care Provider Active Start: June 102024 End: June 10, 2025Lizbeth Snyder APRN ONLINE EDITOR-CAttending ProviderActive Start: June 10, 2025 End: June 10, 2025Team MemberRelationshipSpecialtyStart DateEnd Date Lizbeth Snyder ADAPTIVE PHYSICAL EDUCATION SPECIALIST-ONLINE EDITOR [address] [place] [address] [facility] General12/10/23Team MemberRelationshipSpecialtyStart DateEnd Date Lizbeth Snyder ADAPTIVE PHYSICAL EDUCATION SPECIALIST-ONLINE EDITOR [address] [place] [address] PCP - General12/10/23Team MemberRelationshipSpecialtyStart DateEnd Date Lizbeth Snyder ADAPTIVE PHYSICAL EDUCATION SPECIALIST-ONLINE EDITOR [address] [place] [address] PCP General12/10/23 Goals (unrecognized section and content) Goals may [...] BE BASED ON THE PRIMARY CLINICAL RECORDS. [facility]. provides no warranty or guarantee of the accuracy or completeness of information in this document.
--- OUTSIDE RECORDS SUMMARY | 2025-07-29 14:38 | XMS_ITS | Patient Health Record ---
Author Organization [facility] Address [address] [place] [address] Care Team Providers Care Strategic Marketing Manager Name Role Phone Hoang Lainez [facility] [phone] Reason For Referral No Information Plan Of Treatment No Information Insurance Providers Payer Name Payer Address Payer Phone Subscriber Number Group Number Insured Name Patient Relationship to Insured Coverage Start Date Coverage End Date Medicaid [employer] [place] [address] [place] [address] [id number] Jeffrey HENDRICKSON - patient is the insured
--- OUTSIDE RECORDS SUMMARY | 2025-07-29 14:46 | XMS_ITS | Clinical Summary ---
Author Organization [facility] Address [address] [place] [address] Care Team Providers Care Conductor/Engineer Name Role Phone Unavailable Primary Care Provider Unavailabl e Social History Tobacco UseTypesPacks/DayYears UsedDateSmoking Tobacco: Never Assessed CommentsUnknownSex and Gender InformationValueDate RecordedSex Assigned at Not on fileLegal StnVawpmd16/30/2022 12:32 AM EDTGender IdentityNot on file Sexual OrientationNot on file Plan of Treatment Not on file
--- OUTSIDE RECORDS SUMMARY | 2025-07-29 14:48 | XMS_ITS | Clinical Summary ---
Author Organization [employer] tem Address [id number] [place] [address] Care Team Providers Care House Mover Helper Name Role Phone Lizbeth Snyder Primary Care Provid er Allergies Active AllergyReactionsCriticalityNoted YvtfCwfhtyffYwfmqteeuf45/18/2017 NxbmgdamrFjyrnqfwGxb36/04/0242TgbxgzianlktvriczjHvgij57/08/2019Oxycodone 07/22/2021 Medications MedicationSigDispense QuantityRefillsLast FilledStart DateEnd DateStatus [...] needed.Active Active Problems ProblemNoted DateDiagnosed DatePsychogenic nonepileptic isxdlwy86/11/2022Chronic ulcer of right midfoot limited to breakdown of skin07/29/2021Generalized anxiety ankejkqj62/27/2021earning zzuwvrzzmw26/27/2021Moderate recurrent major entorkvjcp24/27/2021Obesity, morbid, BMI 50 or eiqrwh5505/03/2019 Overview (02/06/2024): Discussed BMI at well woman visit HTN (hypertension)05/03/2019Shortness of gymrgj5705/03/2019Type 2 diabetes mellitus, without long-term current use of rsudibk6305/03/2019 Encounters DateTypeDepartmentCare VqrrSwwltobvjfp43/13/2025 10:00 AM EDTOffice Visit [facility] [address] [place] [phone] Jani Posadas MD Dabaja, Mohamad A, Shortness of breath (Primary Dx); Morbid obesity (CMS-HCC)07/15/20256211Ckwlvx88/12/1796Wyrxws61/06/2025 9:00 AM EDT Telemedicine [facility] [address] [place] [phone] Lizette Mcfadden LD Morbid obesity (CMS-HCC) (Primary Dx); Pre-bariatric surgery nutrition hwkuybvedj04/13/0276Kmgmdr88/05/2025 8:00 AM EDT Telemedicine [facility] [address] [place] [phone] Lizette Mcfadden LD Morbid obesity ([facility]) (Primary Dx); Pre-bariatric surgery nutrition ugwhutucow54/04/2025Orders Only [facility] General Surgery-Bariatric [address] [phone] Ref Prov, Not In System 06/05/2025 12:00 PM EDTTelemedicine [facility] [address] [place] [phone] Katherine Garcia MD MUKESH (obstructive sleep apnea) (Primary Dx)06/03/20250647Mooufj20/28/2025 8:50 AM EDT - 05/30/2025 11:59 PM EDTHospital Encounter [facility] - [facility]iology [address] [place] [address] Katherine Garcia MD Intermittent asthma, unspecified asthma severity, unspecified whether complicated Discharge Disposition: Home05/30/2025 8:30 AM EDT - 05/30/2025 8:49 AM EDT Hospital Encounter [facility] - Pulmonary Function [address] [place] [address] Katherine Garcia MD Intermittent asthma, unspecified asthma severity, unspecified whether complicated Discharge Disposition: Home05/30/2025Telephone [facility] [address] [facility] [address] [place] [phone] Janet Payton LPN 05/27/2025 9:00 AM EDTOffice Visit [facility] [address] [facility] [place] [address] Katherine Garcia MD Intermittent asthma, unspecified asthma severity, unspecified whether complicated (Primary Dx)05/27/20254929Dvtfsm81/15/2025 9:30 AM EDTOffice Visit [facility] [address] [place] [phone] Charlene Burris MD Morbid obesity (CMS-HCC) (Primary Dx)05/17/2025Telephone [facility] [address] [facility] [address] [place] [address] Yamile Watson CMA 05/16/20250079Kwxfxm02/31/2025Results Follow-Up [facility] - [place] [address] [place] [address] Dorinda Thorpe, DEVELOPMENTAL PSYCHOLOGIST-CNM High risk HPV w/aviva, Thin Prep Pap Test05/01/2025 9:00 AM EDTOffice Visit [facility] [place] [address] [place] [address] Well woman exam with routine gynecological exam (Primary Dx); Encounter for screening mammogram for malignant neoplasm of breast; Standardized adult depression screening tool completed; Pap smear, as part of routine gynecological dvtlvmhcwiw91/29/2025Travel 04/29/2025Travelfrom Last 3 Months Immunizations ImmunizationAdministration DatesNext CqgAYR8711/26/2020 Family History Medical HistoryRelationNameCommentsAsthmaFatherToney Julita PolingEmphysemaFather Ramy Julita PolingHeart diseaseFatherToney Julita PolingHypertensionFatherToney Julita PolingDiabetesMaternal AuntMargo reffleNo Known ProblemsMotherBreast cancer Neg HxColon cancerNeg HxOvarian cancerNeg HxUterine cancerNeg HxRelationName StatusCommentsFatherToney Julita PolingDeceasedMaternal AuntMargo reffleMaternal GrandfatherDeceasedMaternal GrandmotherDeceasedMotherAlivePaternal Grandfather DeceasedPaternal GrandmotherDeceased Social History Tobacco UseTypesPacks/DayYears UsedDateSmoking Tobacco: NeverSmokeless Tobacco: Never Tobacco Cessation:Counseling Given: Not Answered Alcohol UseStandard Drinks/WeekCommentsNo0 (1 standard drink = 0.6 oz pure alcohol)PHQ-2AnswerDate RecordedTotal Vatdz882/06/2024ChildcareAnswerDate VpsqomlxMvlimjwbuNcgnjjr25/04/2019EmploymentAnswerDate RecordedEmploymentUnknown 03/06/2019Hunger ScreeningAnswerDate RecordedWithin the past 12 months we worried whether our food would run out before we got money to buy more.Never True05/17/2025Within the past 12 months the food we bought just didn't last and we didn't have money to get more.Never True05/17/2025Purpose - LifeAnswerDate RecordedPurpose and direction in urwtYlmvcwf93/11/2021CommentsNoSex and Gender InformationValueDate RecordedSex Assigned at TuamfIsabnp84/07/2023 12:31 PM EDTLegal EliYcfaqu69/01/2015 10:00 AM ESTGender IyjcqoozUyuwwp94/29/2019 5:14 PM EDTSexual OrientationNot on file Last Filed Vital Signs Vital SignReadingTime TakenCommentsBlood Wbewltua024/8010 9:20 AM EDT Sfcjh206207/15/2025 9:20 AM XXQGujijlxygia80.8 ??C (98.3 ??F)12/13/2021 7:47 AM EDTRespiratory Dhst582611/14/2021 8:43 AM ESTOxygen Eucbrfmfxg05%05/27/2025 9:03 AM EDTInhaled Oxygen Concentration--Clofrc193.4 kg (283 lb)07/15/2025 9:20 AM VJLFqasvn965.1 cm (4' 11.5 )07/15/2025 9:20 AM EDTBody Mass Index56. 9:20 AM EDT Plan of Treatment DateTypeDepartmentCare Team (Latest Contact Info)Xltjqiivhqm18/23/2026 9:30 AM ESTOffice Visit [facility] [address] [place] [address] Katherine Garcia MD [address] [facility] [address] [place], [place] [phone] Health MaintenanceDue DateLast DoneCommentsDiabetic Ophthalmology Exam1985 Diabetic Foot Exam2003Depression Vlefvpeab09/OVID-19 Vaccine ( season)/, 02/05/2021Influenza Vaccine , 06/26/2020, 07/04/2019, Additional history existsAdult BMI Follow Up [facility] BMI Jztbaganp435Tobacco Mdnulrtng89Pap Smear807/, 05/01/2025, 06/10/2020, Additional history existsDTaP,Tdap and Td Vaccines (2 - Tdap) Medical Devices ImplantedTypeAreaManufacturerDevice IdentifierShelf Expiration DateModel / Serial / LotImplant Lead-01/05/2021 Implanted:01/05/2021 (Quantity not on file)Implant LeadButtocksinterstim urinary MGU [id number] / [id number] / Neuro Stimulator-01/05/2021 Implanted:01/05/2021 (Quantity not on file)Neuro StimulatorButtocksMEDTRONIC [facility] interstim [id number] / [id number] / Description:interstim II bladder stimulator Procedures Procedure NamePriorityDate/TimeAssociated DiagnosisCommentsPOCT EKGRoutine 07/15/2025 Morbid obesity ([facility]) Shortness of breath AMB REFERRAL TO NUTRITION PEGFMLNILovrmob82/06/2025 9:11 AM EDT Morbid obesity ([facility]) MULTIPLE JCRSZotwpsu69/04/2025 8:15 AM EDTMULTIPLE XJFJSofzhxl70/04/2025 8:13 AM EDTMULTIPLE YTFNFogjxjh50/04/2025 8:12 AM EDTXR CHEST 2 QYEKtkrnhj54/28/2025 9:01 AM EDT Intermittent asthma, unspecified asthma severity, unspecified whether complicated SPIROMETRY PRE/POST BRONCHODILATOR AND YVGPPgivxuc35/28/2025 8:52 AM EDT Intermittent asthma, unspecified asthma severity, unspecified whether complicated THIN PREP PAP QVGSHimablx27/30/2025 11:16 AM EDT Pap smear, as part of routine gynecological examination HIGH RISK HPV W/GUVQJleorxz62/30/2025 11:16 AM EDT Pap smear, as part [...] 85% predicted Normal DLCO. Authorizing ProviderResult TypeResult Sagar Garcia MDPFT ORDERABLES Final ResultPerforming OrganizationAddressCity/State/ZIP CodePhone Number MANUALLY TRANSCRIBED RESULTS * Thin Prep Pap Test (05/01/2025 11:16 AM EDT)ComponentValueRef RangeTest Method Analysis TimePerformed AtPathologist SignatureCase ReportGynecologic Cytology Report ? Case: [id number] ? Authorizing Provider: ??Latanya Valadez APRN-ARUN ?? Collected: ? 05/01/2025 1116 ? Ordering Location: ? [facility] Received: ?05/01/2025 1116 ? - [place] ? First Screen: ?Anne Cassidy, MARBIN(ASCP) ? Specimen: ?Thin Prep Pap, Cervix/Endocervix ? 05/03/2025 11:01 AM [facility] LABORATORYSpecimen Adequacy Satisfactory for evaluation, endocervical/transformation zone component absent 05/03/2025 11:01 AM [facility] LABORATORYInterpretationNEGATIVE FOR INTRAEPITHELIAL LESION OR MALIGNANCYNEGATIVE FOR INTRAEPITHELIAL LESION OR MALIGNANCY, UNSATISFACTORY, EPITHELIAL CELL ABNORMALITY, GLANDULAR EPITHELIAL CELL ABNORMALITY. , SQUAMOUS EPITHELIAL CELL ABNORMALITY, NO DIAGNOSIS RENDERED. 05/03/2025 11:01 AM [facility] at 1101 EDTOther Vrgeales26/01/2025 11:01 AM [facility] LABORATORYComment:This ThinPrep slide could not be successfully imaged by the [employer] ThinPrep Imaging System so it was manually screened.Additional InformationThe Pap test is a screening test with an inherent, but low, probability of error. The Pap test is primarily effective for the diagnosis and prevention of squamous cell carcinoma. Regular screening is critical for prevention. ThinPrep liquid-based slides, which meet the Concrete Pipe Plant Supervisor criteria for automated screening, have been screened by the ThinPrep Imaging System (as of 06/19/07) along with an additional manual rescreening by a video game developer and, if indicated, by a pathologist.05/03/2025 11:01 AM [facility] LABORATORYClinical Informationlast pap 2020 negative with negative hpv05/03/2025 11:01 AM [facility] LABORATORYEmbedded Abfmta0305/03/2025 11:01 AM [facility] LABORATORYSpecimen (Source)Anatomical Location / LateralityCollection Method / VolumeCollection TimeReceived TimeThin Prep (Cervix/Endocervix)05/01/2025 11:16 AM EDT05/01/2025 11:16 AM EDT Narrative Authorizing ProviderResult TypeResult StatusMartitasa Mclean Rory DEVELOPMENTAL PSYCHOLOGIST-TRAFFIC INCIDENT MANAGEMENT MANAGER PATHOLOGY/CYTOLOGY ORDERABLESFinal ResultPerforming OrganizationAddress City/State/ZIP CodePhone Number [facility] [address] [place] [address], * High risk HPV w/aviva (05/01/2025 11:16 AM EDT)ComponentValueRef RangeTest MethodAnalysis TimePerformed AtPathologist SignatureHPV 16NegativeNegative 05/02/2025 12:52 PM [facility] LABORATORYHPV 18Negative Charhguz52/31/2025 12:52 PM [facility] LABORATORYOTHER HIGH RISK UGHKeizthsfXhwuafsu84/31/2025 12:52 PM [facility] LABORATORYComment:HPV types 31, 33, 35, 39, 45, 52, 56, 58, 59, 66, and 68 DNA were undetectable.Specimen (Source)Anatomical Location / LateralityCollection Method / VolumeCollection TimeReceived TimeThin Prep (Cervix/Endocervix) 05/01/2025 11:16 AM EDT05/02/2025 4:44 AM EDT Narrative Authorizing ProviderResult TypeResult Bere Vinay Rory DEVELOPMENTAL PSYCHOLOGIST-CNPLAB BLOOD ORDERABLESFinal ResultPerforming OrganizationAddressOur [facility]/State/ZIP CodePhone Number [facility] [address] [place] [address], from Last 3 Months Insurance Care Teams Team MemberRelationshipSpecialtyStart DateEnd Date Lizbeth Snyder APRN-CHRISTINE [address] [place] [address] PCP - General12/10/23
--- OUTSIDE RECORDS SUMMARY | 2025-07-29 14:53 | XMS_ITS | Patient Health Record ---
Author Organization [facility] in [place] Address [address] [place] [address] Care Team Providers Care Machine Lacer Name Role Phone Lizbeth Sndyer CNP Primary Care Provider Dori Middleton Unavailable [phone] Kolby Raymnudo Unavailable [phone] Allergies Allergen (clinical drug ingredient) Drug/Non Drug Allergy documented on EMR Reaction Allergy Type Onset Date Status ClaritinUnknownDrug AllergyActiveMetformin & Diet Manage ProdUnknownDrug Allergy ActivemethylprednisoloneMethylPREDNISoloneUnknownDrug AllergyActiveoxycodone oxyCODONE HClrashDrug AllergyActive Reason For Referral No Information Medications Medication SIG (Take, Route, Frequency, Duration) Notes Start Date End Date Status hydroCHLOROthiazide 12.5 MG 1 capsule in the morning Orally Once a day; Duration: 30 day(s) ActiveSertraline HCl 50 MG1 tablet Orally Once a day; Duration: 30 day(s)Active Albuterol Sulfate HFA 108 (90 Base) MCG/ACT2 puffs as needed Inhalation every 6 hrsActiveGabapentin 300 MG1 capsule Orally Once a day; Duration: 30 day(s)Active QUEtiapine FumarateActiveOzempicActiveoxyBUTYnin Chloride ER 10 MG1 tablet Orally Once a day; Duration: 90 days4ActiveMeloxicamActiveMyrbetriq 50 MG1 tablet Orally Once a day; Duration: 30 day(s)11/12/2021Not-TakingLisinopril 2.5 MG1 tablet Orally Once a day; Duration: 30 day(s)ActiveDoxycycline Hyclate 100 MG1 capsule Orally BID; Duration: 10 days12/08/2023Not-TakingbusPIRone HCl ActiveLevothyroxine Sodium 50 MCG1 tablet on an empty stomach in the morning Orally Once a dayActiveTurmeric -as directedActiveJanuviaActiveTrulicityActive Cetirizine HCl 10 MG1 tablet Orally Once a day; Duration: 30 day(s)Active oxyBUTYnin Chloride ER 10 MGTAKE 1 TABLET BY MOUTH TWICE DAILY; Duration: 30 ActiveCalcium + DActiveOmeprazoleActiveMontelukast SodiumActive Social History Tobacco Use: Social History Observation Description Date Details (start date - stop date) Never Smoker NA - NA Tobacco Use/Smoking Question Answer Notes Patient is a nonsmoker Alcohol Screen (Audit-C) Question Answer Notes Did you have a drink containing alcohol in the p ast year? No Jixypk2NsjyiiretcwzmnLbcyfckl Problems Problem Type SNOMED Code ICD Code Onset Dates Problem Status W/U Status Risk Notes Problem Chronic pain (17285790) Other chronic kerry n (G89.29) ActiveconfirmedProblemUrge incontinence of urine (41299559)Urge incontinence (N39.41)ActiveconfirmedProblemNeurogenic bladder (028145694)Neurogenic bladder (N31.9)Activeconfirmed Encounters Encounter Location Date Provider Diagnosis Urology [facility] [address] [place] [address] 09/10/2024 Dori Krueger Urge incontinence N39.41 Urology [facility] [address] [place] [address] 12/11/2024 Kolby Duvall Encounter Date Diagnosis (ICD Code) Assessment Notes Treatment Notes Treatment Clinical Notes Section Notes 09/10/2024 Urge incontinence (ICD-10 - N39. 41) Plan Of Treatment Pending Test Test Name Order Date CULTURE, URINE w SENSITIVITY 09/10/2024 COVID 19 SWAB RT-PCR (OPS ONLY) 03/04/20 20 COVID 19 SWAB RT-PCR (OPS ONLY) 11/24/19 21 Insurance Providers Payer Name Payer Address Payer Phone Subscriber Number Group Number Insured Name Patient Relationship to Insured Coverage Start Date Coverage End Date [employer] [place] [employer] [address] [place] [address] [id number] Dung Ingram - patient is the [id number] 2022 Medical (General) History Medical History History ICD Code Hyperlipidemia Hypertensive heart diseaseHypothroidism, unspecified oysterman ( current ) use of non-steroidal anti-inflammatories ( NSAID )Essential hypertensionEdemaChronic kidney disease, unspecifiedDyspnea, unspecifiedDiabetesAsthmaDepressionSleep apneaEdema in legsUrge jfnkgsxlegpnJ17.41history of seizuresNeurogenic bladder N31.9Flank painR10.9Low back painM54.5Surgical History Surgery Date(Month/Year) Interstim stage 1 12/22/20 Interstim stage 2 01/05/21 Cholecystectomy Hospitalization History Reason Date(Month/Year)
[2025-07-29 15:03] LABS: Hematocrit 36.2 % (36.0-48.0); Hemoglobin 11.7 g/dL (12.0-16.0); Immature Granulocytes Abs Auto 0.03 10^3/uL (0.00-0.03); Immature Granulocytes Pct Auto 0.3 % (0.0-0.5); Lymphocytes Absolute Auto 2.3 10^3/uL (1.2-3.8); Mean Corpuscular HGB Conc 32.3 g/dL (29.9-35.2); Mean Corpuscular Hemoglobin 26.6 pg (26.7-34.0); Mean Corpuscular Volume 82.3 fL (81.0-99.0); Platelet Count 296 10^3/uL (150-450); Red Blood Count 4.40 10^6/uL (4.20-5.40); White Blood Count 9.4 10^3/uL (4.0-11.0)
[2025-07-29 15:13] LABS: Alanine Aminotransferase 35 U/L (14-59); Albumin Globulin Ratio 0.9; Albumin Level 3.4 g/dL (3.4-5.0); Alkaline Phosphatase 87 U/L (46-116); Anion Gap 13.5; Aspartate Amino Transferase 20 U/L (15-37); Blood Urea Nitrogen 9.0 mg/dL (7.0-18.0); Calcium 9.2 mg/dL (8.5-10.1); Carbon Dioxide 28.8 mmol/L (21.0-32.0); Chloride 104 mmol/L (98-107); Estimated GFR (African America >60 (>=60 mL/min/1.73m^2); Estimated GFR (Non-African Ame >60 (>=60 mL/min/1.73m^2); Globulin 4.0 g/dL; Glucose 136 mg/dL (74-106); Potassium 3.3 mmol/L (3.5-5.1); Sodium 143 mmol/L (136-145); Total Protein 7.4 g/dL (6.4-8.2)
--- OUTSIDE RECORDS SUMMARY | 2025-07-29 15:16 | XMS_ITS | CCD ---
Author Name Ursula Palafox NP y Address [address] [place] [address] Phone Organization [facility] Phone Care Team Providers Care Clinical Appeals Reviewer Name Role Phone Unavailable Primary Care Provider Unavailabl e Unavailable Chronic Care Management Unavaila ble Summary Purpose DataExchange Insurance Providers Payer name Policy type / Coverage type Covered libertarian ID Effective Begin Date Effective End Date SUKI MANN MARIA ESTHER [id number] Unknown Unknown Family history Mother Diagnosis Age [...] 05/31/2018 Education level Unknown Some High School 10th05/31/20184909QzpwdrsxvkVpkzsxtYcqhjgsyym24/29/2018Tobacco historySNOMED CT: [id number] never smoked or chewed takftxm4205/31/2018Alcohol historySNOMED CT: 739462728Bctvd drinks kmzgpas7505/31/2018Has the patient ever used illegal drugs? UnknownHas never used illegal drugs05/31/2018DNR Order/ Advanced Directive UnknownFull Code05/31/2018 Allergies, Adverse Reactions, Alerts Substance Reaction Codes Entered Date Inactivated Date Status OxyContin itch, RxNorm: 879465 01/13/2021 No Inactive Da te Active *No known food allergies Tfoiajw8609/06/2018No Inactive DateActiveMethylprednisolonehivesRxNorm: 6902 09/06/2018No Inactive DateActive Problems Condition Codes Effective Dates Condition St atus Adult BMI 50.0-59.9 kg/sq m ICD-10: Z68. 43 ICD-9: V85.4308/ActiveHypertensive heart disease without heart failure ICD-10: I11.9 ICD-9: 402.9003/ctiveMajor depression, recurrentICD-10: F33.9 ICD-9: 296.3009/ctiveType 2 diabetes mellitus with peripheral neuropathy ICD-10: E11.42 ICD-9: 250.6002/ActiveImpetigoICD-10: L01.00 ICD-9: 60627/ctiveType 2 diabetes mellitus with hyperglycemia, without long-term [...] mixed anxiety and depressed moodICD-10: F43.23 ICD-9: 309.2812/01/2018ActiveEdema, unspecifiedICD-10: R60.9 ICD-9: 782.310/06/2018ActiveHypertensive heart disease with [...] of detectionICD-10: U07.1 ICD-9: 079.8909/1ResolvedDiarrheaICD-10: R19.7 ICD-9: 787.9111esolvedDyspnea, unspecifiedICD-10: R06.00 ICD-9: 786.0905/06/2019ResolvedElevated liver enzymesICD-10: R74.8 [...] examinationICD-10: Z01.810 ICD-9: V72.8106/InactiveHeadacheICD-10: R51 ICD-9: 784.001InactiveOther mcfp (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ICD-10: Z79.899 ICD-9: V58.6907InactiveType 2 [...] Fill Instructions montelukast 10 mg tablet RxNorm: 746354 Take 1 Tablet(s) Oral every day 024 2023 Inactive gabapentin 300 mg capsule RxNorm: 278688 Take 1 Capsule(s) Oral three times a day 2023 Inactive hydrocortisone 2.5 % topical cream RxNorm: 095557 Apply Application Topical two times a day a thin layer to the affected area(s) No Stop Date Active amoxicillin 500 mg tablet RxNorm: 473476 Take 1 Tablet(s) Oral two times a day 024 2023 Inactive omeprazole 40 mg capsule,delayed release RxNorm: 005711 Take 1 Capsule(s) Oral HS 024 2023 Inactive Januvia 100 mg tablet RxNorm: 166931 Take 1 Tablet(s) Oral every day 023 2023 Inactive amoxicillin 250 mg capsule RxNorm: 299872 Take 1 Capsule(s) Oral three times a day 023 2022 Inactive amoxicillin 500 mg tablet RxNorm: 566038 Take 1 Tablet(s) Oral three times a day 2022 Inactive Ozempic 1 mg/dose (4 mg/3 mL) subcutaneous pen injector RxNorm: 0930192 INJECT 1 UNITS DOSE SUBCUTANEOUSLY ON TUESDAY OF EACH WEEK 023 2023 Inactive MED IS ON B/O omeprazole 40 mg capsule,delayed release RxNorm: 037955 Take 1 Capsule(s) Oral HS 023 2022 Inactive Januvia 50 mg tablet RxNorm: 483789 Take 1 Tablet(s) Oral two times a day 023 2023 Inactive famotidine 20 mg tablet RxNorm: 100050 TAKE 1 TABLET BY MOUTH EACH MORNING 023 2023 Inactive Januvia 25 mg tablet RxNorm: 115853 Take 1 Tablet(s) Oral every day 023 2022 Inactive Ozempic 1 mg/dose (4 mg/3 mL) subcutaneous pen injector RxNorm: 2778056 INJECT 1 UNITS DOSE SUBCUTANEOUSLY ON TUESDAY OF EACH WEEK 023 2022 Inactive cetirizine 10 mg tablet RxNorm: 2884359 TAKE (1) TABLET BY MOUTH DAILY 023 2023 Inactive amoxicillin 500 mg tablet RxNorm: 050514 Take 1 Tablet(s) Oral two times a day 023 2022 Inactive omeprazole 40 mg capsule,delayed release RxNorm: 819127 Take 1 Capsule(s) Oral at bed time 023 2022 Inactive Easy Touch Alcohol Prep Pads RxNorm: 546367 USE EACH MORNING 023 2024 Inactive montelukast 10 mg tablet RxNorm: 855024 Take 1 Tablet(s) Oral every day 023 2022 Inactive gabapentin 300 mg capsule RxNorm: 362021 Take 1 Capsule(s) Oral three times a day 023 2022 Inactive metformin ER 500 mg 24 hr tablet,extended release RxNorm: 1061241 Take 1 Tablet(s) Oral every day with the evening meal 023 2022 Inactive famotidine 20 mg tablet RxNorm: 466076 Take 1 Tablet(s) Oral every morning 023 2022 Inactive levothyroxine 50 mcg tablet RxNorm: 325750 Take 1 Tablet(s) Oral every day 023 2023 Inactive Msg From [facility]: Approval Requested hydrochlorothiazide 25 mg tablet RxNorm: 502860 Take 1 Tablet(s) Oral every day 023 2023 Inactive Msg From [facility]: Approval Requested atorvastatin 20 mg tablet RxNorm: 994600 Take 1 Tablet(s) Oral every night at bedtime 023 2023 Inactive Macrobid 100 mg capsule RxNorm: 049517 1 Capsule(s) Oral every 12 hours with food 023 2022 Inactive omeprazole 40 mg capsule,delayed release RxNorm: 20021111 Take 1 Capsule(s) Oral every night at bedtime 023 2022 Inactive trazodone 50 mg tablet RxNorm: 489753 Administer 1 Tablet(s) Oral every night at bedtime 023 No Stop Date Active cholecalciferol (vitamin D3) 50 mcg (2,000 unit) tablet RxNorm: 041108 Take 1 Tablet(s) Oral every day 023 2023 Inactive Ozempic 1 mg/dose (4 mg/3 mL) subcutaneous pen injector RxNorm: 7644270 USE 1 UNIT DOSE SUBCUTANEOUSLY ON TUE OF EACH WEEK 023 2022 Inactive lisinopril 2.5 mg tablet RxNorm: 989339 Take 1 Tablet(s) Oral every day 023 2022 [facility]: Approval Requested Ozempic 1 mg/dose (4 mg/3 mL) subcutaneous pen injector RxNorm: 0996950 USE 1 UNIT DOSE SUBCUTANEOUSLY ON TUE OF EACH WEEK 023 2022 Inactive omeprazole 40 mg capsule,delayed release RxNorm: 047343 Take 1 Capsule(s) Oral every night at bedtime 023 2022 Inactive gabapentin 300 mg capsule RxNorm: 472415 Take 1 Capsule(s) Oral three times a day 023 2022 Inactive montelukast 10 mg tablet RxNorm: 421761 Take 1 Tablet(s) Oral every day 02/082022 Inactive omeprazole 20 mg capsule,delayed release RxNorm: 880216 Take 1 Capsule(s) Oral every evening 2022 Inactive Alcohol Prep Pads RxNorm: 301866 USE EACH MORNING 2021 Inactive E11.42 clotrimazole 1 % topical cream RxNorm: 497077 Apply 1 Application Topical two times a day as needed apply to affected area(s) twice daily until healed 2021 Inactive Victoza 2-Sebastián 0.6 mg/0.1 mL (18 mg/3 mL) subcutaneous pen injector RxNorm: 941641 Inject 0.6-1.8 Milligram(s) Subcutaneous once a week Inject 0.6mg/0.1ml week one, 1.2mg/0.2ml week two, 1.8/0.3ml weekly thereafter 2021 Inactive ibuprofen 800 mg tablet RxNorm: 735727 Take 1 Tablet(s) Oral Q8H as needed for pain take with food No Stop Date Active Ozempic 1 mg/dose (4 mg/3 mL) subcutaneous pen injector RxNorm: 2107778 Take 1 Unit Dose Subcutaneous QWeek Tuesday2021 Inactive lisinopril 2.5 mg tablet RxNorm: 124800 Take 1 Tablet(s) Oral every day 2021 Inactive lisinopril 2.5 mg tablet RxNorm: 016731 Take 1 Tablet(s) Oral every day 022 2022 Inactive hydrochlorothiazide 25 mg tablet RxNorm: 340639 Take 1 Tablet(s) Oral every day 022 2021 Inactive Ozempic 1 mg/dose (4 mg/3 mL) subcutaneous pen injector RxNorm: 6373609 Take 1 Unit Dose Subcutaneous QWeek 022 2021 Inactive famotidine 20 mg tablet RxNorm: 855404 Take 1 Tablet(s) Oral every morning 2021 Inactive levothyroxine 50 mcg tablet RxNorm: 888273 Take 1 Tablet(s) Oral every day 022 2021 Inactive atorvastatin 20 mg tablet RxNorm: 076806 Take 1 Tablet(s) Oral every night at bedtime 022 2021 Inactive Cleocin T 1 % lotion RxNorm: 657056 Take 2 Gram(s) Topical every day 022 2021 Inactive Cleocin T 1 % lotion RxNorm: 313173 Take 2 Gram(s) Topical every day 022 2021 Inactive Ozempic 1 mg/dose (4 mg/3 mL) subcutaneous pen injector RxNorm: 7168290 Take 1 Unit Dose Subcutaneous QWeek 022 2021 Inactive Ozempic 0.25 mg or 0.5 mg (2 mg/1.5 mL) subcutaneous pen injector RxNorm: 6222173 INJECT 0.5 MGS SUBCUTANEOUSLY EVERY WEEK 022 2021 Inactive omeprazole 20 mg capsule,delayed release RxNorm: 743867 Take 1 Capsule(s) Oral every evening 022 2021 Inactive levothyroxine 50 mcg tablet RxNorm: 591375 Take 1 Tablet(s) Oral every day 022 2021 Inactive atorvastatin 20 mg tablet RxNorm: 957109 Take 1 Tablet(s) Oral every night at bedtime 2021 Inactive This refill negates all other refills of this medication lisinopril 2.5 mg tablet RxNorm: 909281 Take 1 Tablet(s) Oral every day 022 2021 Inactive gabapentin 300 mg capsule RxNorm: 403482 Take 1 Capsule(s) Oral three times a day 022 2021 Inactive montelukast 10 mg tablet RxNorm: 246840 Take 1 Tablet(s) Oral every day 022 2021 Inactive Myrbetriq 50 mg tablet,extended release RxNorm: 1840538 1 Tablet(s) Oral every day 03/03/2 022 No Stop Date Active cholecalciferol (vitamin D3) 50 mcg (2,000 unit) tablet RxNorm: 303222 Take 1 Tablet(s) Oral every day 2022 Inactive Ozempic 0.25 mg or 0.5 mg (2 mg/1.5 mL) subcutaneous pen injector RxNorm: 5712139 inject 0.5 milligrams subcutaneously every week 2021 Inactive Ozempic 0.25 mg or 0.5 mg (2 mg/1.5 mL) subcutaneous pen injector RxNorm: 3095575 Take 0.5 Capsule(s) Injection once a week 2021 Inactive omeprazole 20 mg capsule,delayed release RxNorm: 462673 Take 1 Capsule(s) Oral every evening 2020 Inactive Ozempic 0.25 mg or 0.5 mg (2 mg/1.5 mL) subcutaneous pen injector RxNorm: 3692922 Take 0.25 Milligram(s) Subcutaneous once a week 2021 Inactive Easy Touch Alcohol Prep Pads RxNorm: 528168 USE DIRECTED EACH MORNING 2021 Inactive Probiotic 10 billion cell capsule RxNorm: 4941993 Take 1 Capsule(s) Oral every day 2021 Inactive levothyroxine 50 mcg tablet RxNorm: 851371 Take 1 Tablet(s) Oral every day 2020 Inactive Acid Head Start Coordinator (famotidine) 20 mg tablet RxNorm: 274479 Take 1 Tablet(s) Oral every morning 2020 Inactive Heartburn Relief (famotidine) 10 mg tablet RxNorm: 636473 Take 1 Tablet(s) Oral QAM 2020 Inactive levothyroxine 50 mcg tablet RxNorm: 925350 Take 1 Tablet(s) Oral QD 021 2020 Inactive Singulair 10 mg tablet RxNorm: 906747 TAKE (1) TABLET BY MOUTH DAILY 2020 Inactive metformin 1,000 mg tablet RxNorm: 310701 1 Tablet(s) Oral two times a day 021 2021 Inactive lisinopril 2.5 mg tablet RxNorm: 634534 Take 1 Tablet(s) Oral every day 021 2020 Inactive hydrochlorothiazide 25 mg tablet RxNorm: 966609 Take 1 Tablet(s) Oral every day 021 2020 Inactive ondansetron 4 mg disintegrating tablet RxNorm: 564781 1 Tablet(s) Oral two times a day 021 2020 Inactive Sudafed 12 Hour 120 mg tablet,extended release RxNorm: 6151316 TAKE 1 TABLET BY MOUTH EVERY 12 HOURS NEEDED 2021 Inactive Heartburn Relief (famotidine) 10 mg tablet RxNorm: 183794 Take 1 Tablet(s) Oral every morning 021 2020 Inactive omeprazole 20 mg capsule,delayed release RxNorm: 305166 1 Capsule(s) Oral every evening 021 2020 Inactive sertraline 100 mg tablet RxNorm: 441614 2 Tablet(s) Oral every day 021 2020 Inactive levothyroxine 50 mcg tablet RxNorm: 306957 TAKE (1) TABLET BY MOUTH DAILY 2020 Inactive metformin 500 mg tablet RxNorm: 138117 1 Tablet(s) Oral two times a day take with 500mg to equal 1000mg 021 2020 Inactive gabapentin 300 mg capsule RxNorm: 871438 TAKE 1 CAPSULE BY MOUTH THREE TIMES A DAY 021 2020 Inactive lisinopril 2.5 mg tablet RxNorm: 240023 TAKE 1 TABLET BY MOUTH DAILY 021 2020 Inactive gabapentin 300 mg capsule RxNorm: 461621 TAKE 1 CAPSULE BY MOUTH THREE TIMES A DAY 021 2020 Inactive Singulair 10 mg tablet RxNorm: 360745 TAKE (1) TABLET BY MOUTH DAILY 2020 Inactive metformin 1,000 mg tablet RxNorm: 062076 1 Tablet(s) Oral two times a day 2020 Inactive atorvastatin 40 mg tablet RxNorm: 948000 1 Tablet(s) Oral every day 021 2020 Inactive omeprazole 20 mg capsule,delayed release RxNorm: 685170 1 Capsule(s) Oral every evening 021 2020 Inactive famotidine 10 mg tablet RxNorm: 962474 1 Tablet(s) Oral every morning 021 2020 Inactive Alcohol Prep Pads RxNorm: 873045 USE EACH MORNING 021 2020 Inactive omeprazole 20 mg capsule,delayed release RxNorm: 922176 1 Capsule(s) Oral two times a day 2021 Inactive omeprazole 20 mg capsule,delayed release RxNorm: 830572 TAKE 1 CAPSULE BY MOUTH EVERY DAY 2021 Inactive Macrobid 100 mg capsule RxNorm: 381160 1 Capsule(s) Oral every 12 hours with food 2020 Inactive omeprazole 20 mg capsule,delayed release RxNorm: 353014 1 Capsule(s) Oral two times a day 2021 Inactive metformin 1,000 mg tablet RxNorm: 223500 1 Tablet(s) Oral two times a day 2020 Inactive start on September 11, 2020 metformin 500 mg tablet RxNorm: 914265 1 Tablet(s) Oral two times a day take with 500mg to equal 1000mg 2019 Inactive gabapentin 300 mg capsule RxNorm: 439037 TAKE 1 CAPSULE BY MOUTH THREE TIMES DAILY 2020 Inactive cetirizine 10 mg tablet RxNorm: 7202620 TAKE (1) TABLET BY MOUTH DAILY 2020 Inactive metformin 500 mg tablet RxNorm: 320383 1 Tablet(s) Oral two times a day 2019 Inactive loperamide 2 mg tablet RxNorm: 063455 1 Tablet(s) Oral as needed take one tablet after each loose stool, maximum of 8 tablets in 24 hours 2021 Inactive Sudafed 12 Hour 120 mg tablet,extended release RxNorm: 2880836 TAKE 1 TABLET BY MOUTH EVERY 12 HOURS NEEDED 020 2019 Inactive hydrochlorothiazide 25 mg tablet RxNorm: 915308 TAKE (1) TABLET BY MOUTH EVERY DAY 020 2019 Inactive omeprazole 20 mg capsule,delayed release RxNorm: 588999 TAKE 1 CAPSULE BY MOUTH EVERY DAY 020 2020 Inactive metformin 500 mg tablet RxNorm: 479519 1 Tablet(s) Oral every day 020 2019 Inactive True Metrix Glucose Test Strip RxNorm: 1 Test Strips Miscellaneous two times a day as needed No Stop Date Active metformin 500 mg tablet RxNorm: 507379 1 Tablet(s) Oral every day 020 2019 Inactive diclofenac sodium 75 mg tablet,delayed release RxNorm: 306824 1 Tablet(s) PO BID 2021 Inactive This refill negates all other refills of this medication Sudafed 12 Hour 120 mg tablet,extended release RxNorm: 3998713 TAKE 1 TABLET BY MOUTH EVERY 12 HOURS NEEDED 020 2019 Inactive True Metrix Glucose Test Strip RxNorm: 1 Test Strips Miscellaneous every morning 020 2019 Inactive 100/container True Metrix Glucose Test Strip RxNorm: 1 Test Strips Miscellaneous QAM 020 2019 Inactive 100/container loperamide 2 mg tablet RxNorm: 601933 1 Tablet(s) Oral as needed take one tablet after each loose stool, maximum of 8 tablets in 24 hours 020 2019 Inactive cetirizine 10 mg tablet RxNorm: 5300805 1 Tablet(s) PO daily 020 2019 Inactive loperamide 2 mg tablet RxNorm: 979761 1 Tablet(s) Oral as needed take one tablet after each loose stool, maximum of 8 tablets in 24 hours 2019 Inactive quetiapine 100 mg tablet RxNorm: 158335 1 Tablet(s) Oral every night at bedtime 2019 Inactive levothyroxine 50 mcg tablet RxNorm: 181572 1 Tablet(s) PO daily 2020 Inactive gabapentin 300 mg capsule RxNorm: 647505 1 Capsule(s) PO TID 2019 Inactive levothyroxine 50 mcg tablet RxNorm: 550538 1 Tablet(s) PO daily 2019 Inactive lisinopril 2.5 mg tablet RxNorm: 531532 1 Tablet(s) PO daily 2020 Inactive gabapentin 300 mg capsule RxNorm: 419770 1 Capsule(s) PO TID 2019 Inactive cetirizine 10 mg tablet RxNorm: 8073917 1 Tablet(s) PO daily 2019 Inactive Singulair 10 mg tablet RxNorm: 088772 1 Tablet(s) PO daily 2020 Inactive gentamicin 0.3 % eye drops RxNorm: 076055 1 Drop(s) ophthalmic (eye) four times a day 2019 Inactive gentamicin 0.3 % eye drops RxNorm: 658528 1 Drop(s) ophthalmic (eye) four times a day 2019 Inactive gentamicin 0.3 % eye drops RxNorm: 913831 1 Drop(s) ophthalmic (eye) four times a day 2019 Inactive hydrochlorothiazide 25 mg tablet RxNorm: 118868 1 Tablet(s) Oral every day 2019 Inactive Sudafed 12 Hour 120 mg tablet,extended release RxNorm: 3363464 TAKE (1) TABLET BY MOUTH EVERY 12 HOURS NEEDED 2019 Inactive loperamide 2 mg tablet RxNorm: 433119 1 Tablet(s) Oral as needed take one tablet after each loose stool, maximum of 8 tablets in 24 hours 020 2019 Inactive loperamide 2 mg tablet RxNorm: 654123 1 Tablet(s) Oral as needed take one tablet after each loose stool, maximum of 8 tablets in 24 hours 020 2019 Inactive atorvastatin 40 mg tablet RxNorm: 662322 1 Tablet(s) Oral every day 020 2020 Inactive quetiapine 100 mg tablet RxNorm: 988247 1 Tablet(s) Oral every night at bedtime 2019 Inactive sertraline 100 mg tablet RxNorm: 465441 1 Tablet(s) Oral 2019 Inactive omeprazole 20 mg capsule,delayed release RxNorm: 345838 1 Capsule(s) Oral every day 2019 Inactive amoxicillin 250 mg capsule RxNorm: 952066 1 Capsule(s) Oral three times a day 2019 Inactive multivitamin with iron-mineral tablet RxNorm: 1 Tablet(s) Oral every day 2021 Inactive cetirizine 10 mg tablet RxNorm: 4312459 1 Tablet(s) PO daily 2019 Inactive This refill negates all other refills of this medication. Please do not auto refill Singulair 10 mg tablet RxNorm: 930792 1 Tablet(s) PO daily 2019 Inactive This refill negates all other refills of this medication gabapentin 300 mg capsule RxNorm: 358054 1 Capsule(s) PO TID 2019 Inactive lisinopril 2.5 mg tablet RxNorm: 419799 1 Tablet(s) PO daily 2019 Inactive levothyroxine 50 mcg tablet RxNorm: 215161 1 Tablet(s) PO daily 2019 Inactive This refill negates all other refills of this medication hydrochlorothiazide 25 mg tablet RxNorm: 754597 1 Tablet(s) Oral every day 020 2019 Inactive fenugreek seed extract 500 mg capsule RxNorm: 1 Capsule(s) Oral three times a day 2021 Inactive Alcohol Prep Pads RxNorm: 263997 1 Patch TOP QAM 020 2020 Inactive loperamide 2 mg tablet RxNorm: 562968 1 Tablet(s) Oral as needed take one [...] 2019 Inactive hydrochlorothiazide 25 mg tablet RxNorm: 485646 1 Tablet(s) Oral every day 019 2019 Inactive Sudafed 12 Hour 120 mg tablet,extended release RxNorm: 9678099 1 Tablet(s) Oral every 12 hours as needed 019 2018 Inactive omeprazole 20 mg capsule,delayed release RxNorm: 687008 1 Capsule(s) Oral every day 019 2019 Inactive Sudafed 12 Hour 120 mg tablet,extended release RxNorm: 0045414 1 Tablet(s) Oral every 12 hours as needed 2018 Inactive pantoprazole 40 mg tablet,delayed release RxNorm: 798024 1 Tablet(s) Oral every day 019 2018 Inactive discontinue any other H2Blkr. and PPI albuterol sulfate 2.5 mg/3 mL (0.083 %) solution for nebulization RxNorm: 122289 1 Vial Inhalation every four hours as needed as needed for dyspnea 019 2019 Inactive 60/box. This refill negates all other refills of this medication. Please do not fill early. Please do not auto refill. Symbicort 160 mcg-4.5 mcg/actuation HFA aerosol inhaler RxNorm: 9477462 2 Puff(s) INH BID No Stop Date Active Alcohol Prep Pads RxNorm: 547899 1 Patch TOP QAM 019 2019 Inactive Ventolin HFA 90 mcg/actuation aerosol inhaler RxNorm: 404188 2 Puff(s) INH QID 019 2019 Inactive Please do not fill early. Please do not auto refill. This refill negates all other refills of this medication True Metrix Glucose Test Strip RxNorm: 1 Test Strips Miscellaneous QA 019 2019 Inactive 100/container atorvastatin 40 mg tablet RxNorm: 952420 1 Tablet(s) Oral every day 019 2019 Inactive buspirone 7.5 mg tablet RxNorm: 035305 1 Tablet(s) PO BID 019 2020 Inactive This refill negates all other refills of this medication hydrochlorothiazide 12.5 mg tablet RxNorm: 701057 1 Tablet(s) PO QAM 019 2019 Inactive levmetamfetamine 50 mg nasal inhaler RxNorm: 1 Unit(s) NASAL Q3-4H Do not use more than every 3 hours or 8 times/24hours 019 2021 Inactive Please do not auto refill. This refill negates all other refills of this medication Ventolin HFA 90 mcg/actuation aerosol inhaler RxNorm: 585681 2 Puff(s) INH QID 019 2018 Inactive Please do not fill early. Please do not auto refill. This refill negates all other refills of this medication Singulair 10 mg tablet RxNorm: 724711 1 Tablet(s) PO daily 019 2019 Inactive This refill negates all other refills of this medication cetirizine 10 mg tablet RxNorm: 6418999 1 Tablet(s) PO daily 019 2019 Inactive This refill negates all other refills of this medication. Please do not auto refill levothyroxine 50 mcg tablet RxNorm: 793738 1 Tablet(s) PO daily 019 2019 Inactive This refill negates all other refills of this medication diclofenac sodium 75 mg tablet,delayed release RxNorm: 340236 1 Tablet(s) PO BID 019 2019 Inactive This refill negates all other refills of this medication ranitidine 150 mg tablet RxNorm: 983619 1 Tablet(s) PO BID 019 2018 Inactive This refill negates all other refills of this medication Calcium 600-D3 Plus (mag-zinc) 600 mg calcium-800 unit-50 mg tablet RxNorm: 1 Tablet(s) PO daily take an additonal tablet for itching. 019 2018 Inactive This refill negates all other refills of this medication albuterol sulfate 2.5 mg/3 mL (0.083 %) solution for nebulization RxNorm: 741185 1 Vial INH QID 019 2018 Inactive 60/box. This refill negates all other refills of this medication. Please do not fill early. Please do not auto refill. lisinopril 2.5 mg tablet RxNorm: 588576 1 Tablet(s) PO daily 019 2019 Inactive gabapentin 300 mg capsule RxNorm: 724061 1 Capsule(s) PO TID 019 2019 Inactive atorvastatin 20 mg tablet RxNorm: 066020 1 Tablet(s) PO QHS 019 2018 Inactive This refill negates all other refills of this medication TRUEplus Lancets 30 gauge RxNorm: 1 Lancets Miscellaneous QAM 019 2018 Inactive 100/box gabapentin 300 mg capsule RxNorm: 818801 1 Capsule(s) PO TID 019 2018 Inactive Flmrakmaury Complete (iron) 18 mg iron chewable tablet RxNorm: 1 Tablet(s) PO daily 019 2021 Inactive This refill negates all other refills of this medication gabapentin 300 mg capsule RxNorm: 025204 1 Capsule(s) PO TID as needed 2018 Inactive True Metrix Glucose Test Strip RxNorm: 1 Test Strips Miscellaneous QAM 019 2018 Inactive 100/container Alcohol Prep Pads RxNorm: 522452 1 Patch TOP QAM 2018 Inactive TRUEplus Lancets 30 gauge RxNorm: 1 Lancets Miscellaneous QAM 019 2018 Inactive 100/box lisinopril 2.5 mg tablet RxNorm: 876782 1 Tablet(s) PO daily 2018 Inactive ranitidine 150 mg tablet RxNorm: 771704 1 Tablet(s) PO BID 2018 Inactive This refill negates all other refills of this medication albuterol sulfate 2.5 mg/3 mL (0.083 %) solution for nebulization RxNorm: 171767 1 Vial INH QID 2018 Inactive 60/box. [...] this medication gabapentin 300 mg capsule RxNorm: 728586 1 Capsule(s) PO TID as needed 019 2018 Inactive atorvastatin 20 mg tablet RxNorm: 237704 1 Tablet(s) PO QHS 019 2018 Inactive This refill negates all other refills of this medication trazodone 50 mg tablet RxNorm: 274468 1 Tablet(s) PO QHS 019 2018 Inactive This refill negates all other refills of this medication Ventolin HFA 90 mcg/actuation aerosol inhaler RxNorm: 018779 2 Puff(s) INH QID 019 2018 Inactive Please do not fill early. Please do not auto refill. This refill negates all other refills of this medication Calcium 600-D3 Plus 600 mg calcium-800 unit-50 mg tablet RxNorm: 1 Tablet(s) PO daily take an additonal tablet for itching. 019 2018 Inactive This refill negates all other refills of this medication Singulair 10 mg tablet RxNorm: 085510 1 Tablet(s) PO daily 019 2018 Inactive This refill negates all other refills of this medication buspirone 7.5 mg tablet RxNorm: 284888 1 Tablet(s) PO BID 019 2018 Inactive This refill negates all other refills of this medication diclofenac sodium 75 mg tablet,delayed release RxNorm: 812873 1 Tablet(s) PO BID 019 2018 Inactive This refill negates all other refills of this medication hydrochlorothiazide 12.5 mg tablet RxNorm: 700863 1 Tablet(s) PO QAM 019 2018 Inactive metoprolol succinate ER 50 mg tablet,extended release 24 hr RxNorm: 025241 1 Tablet(s) PO daily 019 2018 Inactive This refill negates all other refills of this medication levothyroxine 50 mcg tablet RxNorm: 263414 1 Tablet(s) PO daily 019 2018 Inactive This refill negates all other refills of this medication cetirizine 10 mg tablet RxNorm: 8337961 1 Tablet(s) PO daily 019 2018 Inactive This refill negates all other refills of this medication. Please do not auto refill Flintstones Complete (iron) 18 mg iron chewable tablet RxNorm: 1 Tablet(s) PO daily 019 2018 Inactive This refill negates all other refills of this medication buspirone 7.5 mg tablet RxNorm: 407744 1 Tablet(s) PO BID 019 2018 Inactive cetirizine 10 mg tablet RxNorm: 2825625 1 Tablet(s) PO daily 2018 Inactive Guaiasorb DM 10 mg-100 mg/5 mL oral liquid RxNorm: 243740 10 Milliliter(s) PO As needed every 4 hr 2018 Inactive Vicks Vaporub 4.7 %-1.2 %-2.6 % topical ointment RxNorm: 2262440 1 Application TOP TID 2018 Inactive levmetamfetamine 50 mg nasal inhaler RxNorm: 1 Unit(s) NASAL Q3-4H 2017 Inactive sertraline 50 mg tablet RxNorm: 668561 1 Tablet(s) PO daily 2018 Inactive Please note dose trazodone 50 mg tablet RxNorm: 494023 1 Tablet(s) PO QHS 2018 Inactive sertraline 50 mg tablet RxNorm: 522160 1 Tablet(s) PO daily 018 2017 Inactive amoxicillin 500 mg tablet RxNorm: 984978 1 Tablet(s) PO Q12H 2017 Inactive albuterol sulfate 2.5 mg/3 mL (0.083 %) solution for nebulization RxNorm: 525037 1 Vial INH QID 2018 Inactive 60/box. Please do not fill early. Please do not auto refill. Prozac 10 mg capsule RxNorm: 392194 1 Capsule(s) PO daily 018 2017 Inactive buspirone 7.5 mg tablet RxNorm: 301076 1 Tablet(s) PO BID 018 2018 Inactive gabapentin 300 mg capsule RxNorm: 143583 1 Capsule(s) PO TID as needed 018 2018 Inactive hydrochlorothiazide 12.5 mg tablet RxNorm: 886072 1 Tablet(s) PO QAM 018 2018 Inactive ranitidine 150 mg tablet RxNorm: 892216 1 Tablet(s) PO BID 018 2018 Inactive Macrobid 100 mg capsule RxNorm: 542355 1 Capsule(s) PO Q12H 018 2017 Inactive Singulair 10 mg tablet RxNorm: 089137 1 Tablet(s) PO daily 018 2018 Inactive Ventolin HFA 90 mcg/actuation aerosol inhaler RxNorm: 8079423 2 Puff(s) INH QID 018 2018 Inactive Singulair 10 mg tablet RxNorm: 314812 1 Tablet(s) PO daily 018 2017 Inactive buspirone 7.5 mg tablet RxNorm: 711171 1 Tablet(s) PO BID 018 2017 Inactive Prozac 10 mg capsule RxNorm: 227994 1 Capsule(s) PO daily 018 2017 Inactive diclofenac sodium 75 mg tablet,delayed release RxNorm: 514393 1 Tablet(s) PO BID 018 2017 Inactive lisinopril 2.5 mg tablet RxNorm: 911092 1 Tablet(s) PO daily 018 2017 Inactive Neilmed Pediatric Sinus Rinse Refill packet RxNorm: 1 Unit Dose NASAL PRN 018 2021 Inactive metoprolol succinate ER 50 mg tablet,extended release 24 hr RxNorm: 345262 1 Tablet(s) PO daily 018 2017 Inactive levothyroxine 50 mcg tablet RxNorm: 440484 1 Tablet(s) PO daily 018 2017 Inactive TRUEplus Lancets 30 gauge RxNorm: 1 Lancets Miscellaneous QAM 018 2017 Inactive 100/box Ventolin HFA 90 mcg/actuation aerosol inhaler RxNorm: 088397 2 Puff(s) INH QID 018 2017 Inactive Aleve 220 mg capsule RxNorm: 9502343 1 Capsule(s) PO BID 018 2018 Inactive ranitidine 150 mg tablet RxNorm: 455086 1 Tablet(s) PO BID 018 2017 Inactive gabapentin 300 mg capsule RxNorm: 382054 1 Capsule(s) PO TID as needed 018 2017 Inactive atorvastatin 20 mg tablet RxNorm: 129707 1 Tablet(s) PO QHS 018 2017 Inactive True Metrix Glucose Test Strip RxNorm: 1 Test Strips [facility] QAM 018 2017 Inactive 50/container Calcium 600-D3 Plus 600 mg calcium-800 unit-50 mg tablet RxNorm: 1 Tablet(s) PO daily take an additonal tablet for itching. 018 2017 Inactive hydrochlorothiazide 12.5 mg tablet RxNorm: 519055 1 Tablet(s) PO QAM 018 2017 Inactive Flintstones Complete (iron) 18 mg iron chewable tablet RxNorm: 1 Tablet(s) PO daily 018 2017 Inactive True Metrix Glucose Meter RxNorm: miscellaneous 019 2018 Inactive sertraline 50 mg tablet RxNorm: 812020 1 Tablet(s) PO daily 020 2019 Inactive loperamide 2 mg tablet RxNorm: 729052 oral 019 2018 Inactive d-mannose oral powder RxNorm: PO 018 2021 Inactive Symbicort 160 mcg-4.5 mcg/actuation HFA aerosol inhaler RxNorm: 1220177 2 Puff(s) INH BID 019 2018 Inactive Medication Administered No Medication Administered data Results Observation Observation Code Item Item Code Result Date S ervice Location COMPLETE CBC W/ DIFF WBC 63336 WBC 6690-2 7.7 K/ul 09/22/2023 [facility] [address],[place] [address]MBAXLHYN CBC W/ DIFF MTG89960SRT647-44.92 M/uL09/22/2023 [facility] [address],[place] [address]KDTCNKZY CBC W/ DIFF PKV44831Ycbkmdqajw942-103.5 g/dL09/22/2023 [facility] [address],[place] [address]LDWQSVBH CBC W/ DIFF XYW73166Tpjgmrejuv2056-671.4 %09/22/2023 [facility] [address],[place] [address]XKSFSSZV CBC W/ DIFF ETG53705ALN692-353.1 fL09/22/2023 [facility] [address],[place] [address]LNRXESFE CBC W/ DIFF JFA78557CYJ165-480.5 pg09/22/2023 [facility] [address] [place] [address]XEALFQJK CBC W/ DIFF HVE28678FGKO416-081.6 g/dL09/22/2023 [facility] [address] [place] [address]KMZXZEVV CBC W/ DIFF RGV97286CLK795-269.6 %09/22/2023 [facility] [address],[place] [address]MVEPPSUT CBC W/ DIFF NAJ23934Xqoyvznx Rdoar544-4893 K/uL09/22/2023 [facility] [address] [place] [address]MRZBVAIN CBC W/ DIFF IPO75280OPK78440-19.1 fL09/22/2023 [facility] [address] [place] [address]DLWGYJDT CBC W/ DIFF BPW04991Jagmgkkfhcj %770-863.7 %09/22/2023 [facility] [address] [place] [address]PUIXZFCO CBC W/ DIFF REG39453Ftkxpteqxgr %736-927.9 %09/22/2023 [facility] [address] [place] [address]LNQOTLQG CBC W/ DIFF NCW51904Oexovxbcv %5905-56.8 %09/22/2023 [facility] [address] [place], [place] [address]GOSVZFHU CBC W/ DIFF IXN69783Zytgjbwagca %713-81.2 %09/22/2023 [facility] [address] [facility] [place] [address]PGAUKTGT CBC W/ DIFF BFV47527Highbvxfn%706-20.4 %09/22/2023 [facility] [address] [place], [place] [address]AZGSUTAF CBC W/ DIFF BCJ86808Kxhfukeu Kvszpcyzqx060-87529 /ul 09/22/2023 [facility] [address] [place], [place] [address]GMWVGBNN CBC W/ DIFF PGD11616Jmkhithj Doqegywnjr19021-31702 /ul 09/22/2023 [facility] [address] [place], [place] [address]OZGSNZFP CBC W/ DIFF ISC59945Rsrwilik Hucstjio998-3136 /ul 09/22/2023 [facility] [address] [place], [place] [address]QVJPTDUJ CBC W/ DIFF FRK49619Koagujmy Dkfjbvicxa217-347 /ul 09/22/2023 [facility] [address] [place], [place] [address]WEBYUIQR CBC W/ DIFF SPV07926Agoncjtw Ixxdunxn368-502 /ul09/22/2023 [facility] [address] [place], [place] [address]HPDU 14 (METABOLIC PANEL)01126Xmyfoog7495-075 mg/dL09/21/2023 [facility] [address] [place], [place] [address]WUQC 14 (METABOLIC PANEL)93471SKB5247-844 mg/dL09/21/2023 [facility] [address] [place], [place] [address]UHNY 14 (METABOLIC PANEL)39525Hxqixabeju1046-85.9 mg/dL09/21/2023 [facility] [address] [place], [place] [address]GAZL 14 (METABOLIC PANEL)98159XKR/Creat Lmocr8887-674.012 [facility] [address] [place], [place] [address]XEEG 14 (METABOLIC PANEL)61508BIT Vuuclxlpa33779-769 mL/min/1.73m2 09/21/2023 [facility] [address] [place], [place] [address]PZZB 14 (METABOLIC PANEL)86568Fazldv4872-3185 mmol/L111/22/2022 [facility] [address] [place], [place] [address]LVZL 14 (METABOLIC PANEL)96852Sewcwkvfs4315-87.3 mmol/L111/22/2022 [facility] [address] [place] [address]ZGMS 14 (METABOLIC PANEL)24058Rbulrzdd8015-3740 mmol/L111/22/2022 [facility] [address] [place], [place] [address]AEFI 14 (METABOLIC PANEL)90637Crtjy PI38315-752 mmol/L111/22/2022 [facility] [address] [place], [place] [address]ZMLF 14 (METABOLIC PANEL)84655Taboy Wdm7414-991.3 mEq/L111/22/2022 [facility] [address] [place], [place] [address]CSFR 14 (METABOLIC PANEL)81458Turwvvswyk Serum Cwirnjaycu21099-8412 mOsm/kg09/21/2023 [facility] [address] [place] [address]RANT 14 (METABOLIC PANEL)07157Aonukjg53544-04.7 g/dL09/21/2023 [facility] [address] [place] [address]AWFY 14 (METABOLIC PANEL)354[address]Hszsu Cmnuciw7367-62.3 g/dL09/21/2023 [facility] [address] [place] [address]QLZT 14 (METABOLIC PANEL)24717Jfhwhrqb0805-04.6 g/dL09/21/2023 [facility] [address] [place] [address]PWOS 14 (METABOLIC PANEL)26719Gntopwn/Globulin Xtlcz6606-55.0 09/21/2023 [facility] [address] [place] [address]VYSZ 14 (METABOLIC PANEL)76884SAX OYEA1957-6940.00 U/L111/22/2022 [facility] [address] [place] [address]JVAM 14 (METABOLIC PANEL)80459QRBT/XTX6301-803 U/L111/22/2022 [facility] [address] [place] [address]ELZS 14 (METABOLIC PANEL)01961WVUZ/QPG9181-572 U/L111/22/2022 [facility] [address] [place] [address]RVDT 14 (METABOLIC PANEL)79530Gjxcp Oetclpxyd3550-04.3 mg/dL 09/21/2023 [facility] [address] [place] [address]XSDZ 14 (METABOLIC PANEL)36516Dnnwino52823-23.6 mg/dL09/21/2023 [facility] [address] [place] [address]HPBH 14 (METABOLIC PANEL)14027Fvdnppqia Uqpnuwg45867-246.0 mg/dL 09/21/2023 [facility] [address] [place] [address]F2O-XZDSOACOYJCVVKR7395-6Stkux HGB X7G38642-31.6 %09/21/2023 [facility] [address] [place] [address]E4X-XOGIOSPNQPPYCBY6963-0dJZ32879-2192 mg/dL09/21/2023 [facility] [address] [place] [address]SCGQNZNQ CBC W/ DIFF WZT07746KOQ8081-36.8 K/ul05/06/2023 [facility] [address] [place] [address]UHKUGKQQ CBC W/ DIFF NTK26291MHM276-08.32 M/uL05/06/2023 [facility] [address] [place] [address]VRQYOYNJ CBC W/ DIFF OOK84500Shnqeahwbz441-593.5 g/dL05/06/2023 [facility] [address] [place] [address]IUUSJLTO CBC W/ DIFF AOX72322Aqxaymrjty2560-243.6 %05/06/2023 [facility] [address] [place] [address]TKWDSDTK CBC W/ DIFF HYG45106JSS970-103.1 fL05/06/2023 [facility] [address] [place] [address]JQPIEEYZ CBC W/ DIFF FHA08204XIN650-402.7 pg05/06/2023 [facility] [address] [place] [address]GMVPJYVY CBC W/ DIFF CUO11043WHST857-510.3 g/dL05/06/2023 [facility] [address] [place], [place] [address]DPPRTEHC CBC W/ DIFF KON38272VAB525-427.2 %05/06/2023 [facility] [address]TYZBDZVL CBC W/ DIFF ITB96630Pvdatyvh Pvadp363-9278 K/uL05/06/2023 [facility] [address] [facility] [place] [address]TNCRQQZT CBC W/ DIFF ZZZ90424CMV04592-25.9 fL05/06/2023 [facility] [address] [place], [place] [address]SMMZWNEA CBC W/ DIFF YWT33161Kwxpxnptdmz %770-859.2 %05/06/2023 [facility] [address] [place], [place] [address]BVHEOXWK CBC W/ DIFF HMI94862Ibzqykkltkp %736-928.1 %05/06/2023 [facility] [address] [place], [place] [address]SMILCLWK CBC W/ DIFF TDC36019Uxmyrpzii %5905-57.1 %05/06/2023 [facility] [address] [place], [place] [address]EYRDVSWM CBC W/ DIFF SEH46903Fmmzayqrbkp %713-85.0 %05/06/2023 [facility] [address] [place], [place] [address]YSBNPJDN CBC W/ DIFF WXN50796Ndrsfomxv%706-20.6 %05/06/2023 [facility] [address] [facility] [place], [place] [address]YXXUNQGC CBC W/ DIFF OOM62853Mecljoir Lxpfvlbwic723-18532 /ul 05/06/2023 [facility] [address] [place], [place] [address]TUHOEIAB CBC W/ DIFF EHN14134Yrgpgqjb Wdyoqotczo46021-37770 /ul 05/06/2023 [facility] [address] [place], [place] [address]PVVXVMOD CBC W/ DIFF LJO05579Zlcdzuzq Mhzkgqhx115-0613 /ul 05/06/2023 [facility] [address] [place], [place] [address]DGHWXBGD CBC W/ DIFF OMD08754Bpakdfnq Dnlgppgris363-0504 /ul 05/06/2023 [facility] [address] [place], [place] [address]CQOZMJOP CBC W/ DIFF NLI60160Vgfeodwm Pzxqwwbb280-234 /ul05/06/2023 [facility] [address] [place], [place] [address]UAZ - WXSI19445ZHY1542-446 mg/dL05/05/2023 [facility] [address] [place] [address]UMP - EAWH97511OBW70119-654 %05/05/2023 [facility] [address] [facility] [place] [address]TLYPGYZHZNOX (URINE)30582Rkzxwbtcyxgy72747-95.3 mg/dL05/05/2023 [facility] [address] [facility] [place] [address]TSYFKQABVJCQ (URINE)[address]Vrnclmsqwwcb/Creatinine Rzekx57666-939 MCG/SRBSIDN1305/05/2023 [facility] [address] [facility] [address]GIOTZYIYOCAX (URINE)698[address]Wexqi Lhimzbadfd2463-927.70 mg/dL 05/05/2023 [facility] [address] [facility] [place] [address]WCTFHY LDL - EUMO44184ZWU-Qilugk54166-089 mg/dL05/05/2023 [facility] [address] [facility] [place] [address]JMPBOHDRMKZOX72444Pjhtducsmsjkg6511-5875 mg/dL05/05/2023 [facility] [address] [facility] [place] [address]FTZVPVWEEHNJZ68038EGCI33338-213 mg/dL05/05/2023 [facility] [address] [facility] [place] [address]XKHHJKRPIHC45734Cacpxdfjhtp8807-1353 mg/dL05/05/2023 [facility] [address] [facility] [place] [address]VOJSLET G56563Kpmmacv B04741-678.4 ng/mL05/05/2023 [facility] [address] [facility] [place] [address]MFYDWDNTRM22615Sbaxmdxres55756-120 mg/dL05/05/2023 [facility] [address] [facility] [place] [address]ZXXJ 14 (METABOLIC PANEL)46750Dtziovl6838-424 mg/dL10/21/2022 [facility] [address] [facility] [place] [address]HECK 14 (METABOLIC PANEL)83161CSG6972-748 mg/dL10/21/2022 [facility] [address] [facility] [place] [address]MBBM 14 (METABOLIC PANEL)25278Qseaszdgqa5358-33.9 mg/dL10/21/2022 [facility] [address] [place] [address]QEJU 14 (METABOLIC PANEL)97087FDD/Creat Ebcil5855-508.6010/21/2022 [facility] [address] [place], [place] [address]JIPW 14 (METABOLIC PANEL)52114XWE Zbbmnvvev56685-608 mL/min/1.73m2 10/21/2022 [facility] [address] [place], [place] [address]LORE 14 (METABOLIC PANEL)60432Miokdk1026-3239 mmol/L10/21/2022 [facility] [address] [place], [place] [address]QARS 14 (METABOLIC PANEL)48451Jebxjuvpu5450-58.9 mmol/L10/21/2022 [facility] [address] [place] [address]JYUQ 14 (METABOLIC PANEL)58267Mzjubfej9497-4008 mmol/L10/21/2022 [facility] [address] [place] [address]ITHR 14 (METABOLIC PANEL)99918Eppms IY55056-085 mmol/L10/21/2022 [facility] [address] [place] [address]HQXG 14 (METABOLIC PANEL)77419Hpzarpebfv Serum Lvlwpgoaox86114-8954 mOsm/kg10/21/2022 [facility] [address] [place] [address]UGKO 14 (METABOLIC PANEL)45071Pffsg Hnm6216-553.9 mEq/L10/21/2022 [facility] [address] [place] [address]PARI 14 (METABOLIC PANEL)58903Obmvcss24364-36.7 g/dL10/21/2022 [facility] [address] [place] [address]GVEX 14 (METABOLIC PANEL)94075Jzsdj Jesqdga2387-99.2 g/dL10/21/2022 [facility] [address] [place] [address]TYDC 14 (METABOLIC PANEL)50595Fvlsxoav3267-16.5 g/dL10/21/2022 [facility] [address] [place] [address]ULJU 14 (METABOLIC PANEL)05172Ypryyvt/Globulin Xyycf2029-14.1 10/21/2022 [facility] [address] [place] [address]TBBW 14 (METABOLIC PANEL)52732JKA ICPX9016-506.00 U/L10/21/2022 [facility] [address] [place] [address]TSYA 14 (METABOLIC PANEL)67967BZML/LAL7005-486 U/L10/21/2022 [facility] [address] [place] [address]WYXE 14 (METABOLIC PANEL)45042VXRS/QOW9960-241 U/L10/21/2022 [facility] [address] [place] [address]DNIH 14 (METABOLIC PANEL)90756Rrcwb Drdkbhbrr5923-76.4 mg/dL 10/21/2022 [facility] [address] [place] [address]NYTG 14 (METABOLIC PANEL)60462Etfxeri15928-13.4 mg/dL10/21/2022 [facility] [address] [place] [address]JOWR 14 (METABOLIC PANEL)20281Emvtfvjoy Uajcrfg96936-74.8 mg/dL 10/21/2022 [facility] [address] [facility] [place] [address]F4B-VOUZERPXPFAUPKW2980-7Gctop HGB O5N23660-34.6 %10/21/2022 [facility] [address] [facility] [place], [place] [address]Z6S-OYDPHUTTLJVMVXV5124-7zVQ40489-6480 mg/dL10/21/2022 [facility] [address] [place], [place] [address]CERADQVW CBC W/ DIFF LFX26561AUV2903-112.4 K/ul10/21/2022 [facility] [address] [facility] [place] [address]NLUQJMLH CBC W/ DIFF VGA28891ROS066-60.78 M/uL10/21/2022 [facility] [address] [facility] [place], [place] [address]ZRQREVPK CBC W/ DIFF ZBK51330Kuhebinxre293-330.0 g/dL10/21/2022 [facility] [address] [place], [place] [address]VEFPDQSO CBC W/ DIFF QPJ40286Jsbijxwlvp6800-267.3 %10/21/2022 [facility] [address] [place], [place] [address]XDKFIUEW CBC W/ DIFF CLE10168AFK341-545.1 fL10/21/2022 [facility] [address] [facility] [place], [place] [address]EFLIEPNN CBC W/ DIFF RRU26182TRK311-278.1 pg10/21/2022 [facility] [address] [place] [address]CUCWNNKI CBC W/ DIFF ZDO42031EGZP786-695.4 g/dL10/21/2022 [facility] [address] [place] [address]VQGSEUDK CBC W/ DIFF UWX22485DAM109-972.3 %10/21/2022 [facility] [address] [place] [address]GXBDTTHS CBC W/ DIFF ZWG00487Uvglwtge Bmldt578-8427 K/uL10/21/2022 [facility] [address] [place] [address]PULPMAMU CBC W/ DIFF IRV31562SWL59945-15.0 fL10/21/2022 [facility] [address] [place] [address]WJSOONLW CBC W/ DIFF CSQ96811Wnnxemuupsu %770-874.4 %10/21/2022 [facility] [address] [place] [address]VOEFDIYK CBC W/ DIFF AND36625Juwdmqwwbcm %736-918.3 %10/21/2022 [facility] [address] [place] [address]SHJWCRIF CBC W/ DIFF ELV96642Wnpntejjc %5905-56.3 %10/21/2022 [facility] [address] [place] [address]WLOXGSKY CBC W/ DIFF WVC08366Snswqbehyjl %713-80.7 %10/21/2022 [facility] [address] [place] [address]DECTXHEL CBC W/ DIFF XQJ92836Qlohtrxol%706-20.3 %10/21/2022 [facility] [address] [place] [address]WXHUDOZL CBC W/ DIFF EQO82118Wwmuliwz Kehvvjedeo311-88239 /ul 10/21/2022 [facility] [address] [place] [address]QGWORDFV CBC W/ DIFF XXR37538Hyktccak Txuwwucebp80746-84280 /ul 10/21/2022 [facility] [address] [place] [address]UQZCZDNK CBC W/ DIFF WUG81930Lcxksudc Usysemto526-4111 /ul 10/21/2022 [facility] [address] [place], [place] [address]THZLCFYC CBC W/ DIFF HBS35559Bwoccpwj Iptuvzbmle511-165 /ul 10/21/2022 [facility] [address] [place], [place] [address]KJLZASZB CBC W/ DIFF ICQ64346Mirtjgyu Gdluoows504-221 /ul10/21/2022 [facility] [address] [place], [place] [address]OXRYNZQ B-5647864Mkgymei Z357416-2753 pg/mL10/21/2022 [facility] [address] [place], [place] [address]F8Q-BWWZQIVTVPNGHBL3152-8Pdwex HGB W3X98281-39.8 %06/24/2022 [facility] [address] [place], [place] [address]N5I-BHDBUMIKXNOVSFF8686-4hWW27904-9784 mg/dL06/24/2022 [facility] [address] [place], [place] [address]OCO21496XUQ69842-03.130 uIU/mL06/24/2022 [facility] [address] [place], [place] [address]BJIJ 14 (METABOLIC PANEL)97007Wcnbccm9093-896 mg/dL06/24/2022 [facility] [address] [place], [place] [address]HGOL 14 (METABOLIC PANEL)61252NTL3312-142 mg/dL06/24/2022 [facility] [address] [place], [place] [address]CPKS 14 (METABOLIC PANEL)11856Yfphxhvhyl2485-97.8 mg/dL06/24/2022 [facility] [address] [place], [place] [address]FBRD 14 (METABOLIC PANEL)37640KMD/Creat Hxujo6051-359.709 [facility] [address] [place], [place] [address]TGAD 14 (METABOLIC PANEL)03665PAP Xndfvkzdd77468-024 mL/min/1.73m2 06/24/2022 [facility] [address] [place], [place] [address]WUWO 14 (METABOLIC PANEL)39028Jmjkcp8085-5772 mmol/L06/24/2022 [facility] [address] [place], [place] [address]IBMI 14 (METABOLIC PANEL)24349Hjxcnhfqo7949-15.2 mmol/L06/24/2022 [facility] [address] [place], [place] [address]EROJ 14 (METABOLIC PANEL)09093Pyvkrgrg8703-8652 mmol/L06/24/2022 [facility] [address] [place], [place] [address]BBMW 14 (METABOLIC PANEL)14770Gyqoy BH51969-381 mmol/L06/24/2022 [facility] [address] [place], [place] [address]QWEY 14 (METABOLIC PANEL)39885Iqwliqwjhv Serum Cuezfsqypm86882-8342 mOsm/kg06/24/2022 [facility] [address] [place], [place] [address]JZJP 14 (METABOLIC PANEL)03327Iwxgc Dpd5902-285.2 mEq/L06/24/2022 [facility] [address] [place], [place] [address]UQVV 14 (METABOLIC PANEL)27256Zbzvxai97027-86.7 g/dL06/24/2022 [facility] [address] [place] [address]ZZDU 14 (METABOLIC PANEL)22795Reixr Yklmlte9286-64.2 g/dL06/24/2022 [facility] [address] [place] [address]BTOZ 14 (METABOLIC PANEL)61009Iyxooyum6887-63.5 g/dL06/24/2022 [facility] [address] [place] [address]EWCN 14 (METABOLIC PANEL)54582Ajmjxzr/Globulin Gtplk8927-32.1 06/24/2022 [facility] [address] [place] [address]VEDA 14 (METABOLIC PANEL)65250VRA WIXR3613-331.00 U/L06/24/2022 [facility] [address] [place], [place] [address]LFTP 14 (METABOLIC PANEL)21139XQAS/RHO3970-974 U/L06/24/2022 [facility] [address] [place], [place] [address]ULNP 14 (METABOLIC PANEL)23798XAMN/OPT3473-211 U/L06/24/2022 [facility] [address] [place] [address]PLUV 14 (METABOLIC PANEL)46118Akujf Pndwefoku5895-31.4 mg/dL 06/24/2022 [facility] [address] [place], [place] [address]YNEZ 14 (METABOLIC PANEL)75528Kivgrqb33297-11.6 mg/dL06/24/2022 [facility] [address] [place], [place] [address]IEOZ 14 (METABOLIC PANEL)38479Nrivjacoj Mlcdjdm01046-491.0 mg/dL 06/24/2022 [facility] [address] [place], [place] [address]GEFDEOGKUGBD (URINE)07076Wyslmfcnzsnt30923-56.6 mg/dL06/24/2022 [facility] [address] [place], [place] [address]FRXQAAWDHYWL (URINE)73011Vlmcdwukhuet/Creatinine Emmdn54216-36 MCG/DQHPIYU5206/24/2022 [facility] [address] [place], [place] [address]ADYJQAOIXXOX (URINE)39[address]Mxdjt Pswdhnkxjd1398-085.10 mg/dL 06/24/2022 [facility] [address] [place] [address]YHAJ 14 (METABOLIC PANEL)42750Pskrrla2411-054 mg/dL02/12/2022 [facility] [address] [place] [address] 56084ZJNO 14 (METABOLIC PANEL)78817PJJ2086-492 mg/dL02/12/2022 [facility] [address] [place], [place] [address]KRNT 14 (METABOLIC PANEL)37059Llxbyhvcdj0947-18.8 mg/dL02/12/2022 [facility] [address] [place], [place] [address]EGDX 14 (METABOLIC PANEL)68620WAN/Creat Bplmq1967-116. [facility] [address] [place] [address] 77221HOYK 14 (METABOLIC PANEL)42540LMJ Dwnslbkab79960-7662 mL/min/1.73m2 02/12/2022 [facility] [address] [place], [place] [address]DFPT 14 (METABOLIC PANEL)91354Mppeav7056-5643 mmol/L02/12/2022 [facility] [address] [place], [place] [address]UVBI 14 (METABOLIC PANEL)07539Iebqeavks3907-79.0 mmol/L02/12/2022 [facility] [address] [place], [place] [address]FWZB 14 (METABOLIC PANEL)79128Qyugbbaw2340-9393 mmol/L02/12/2022 [facility] [address] [place], [place] [address]BALD 14 (METABOLIC PANEL)73334Xober CL22048-230 mmol/L02/12/2022 [facility] [address] [place] [address]MUVG 14 (METABOLIC PANEL)28775Vpkrv Lfa2811-001.0 mEq/L02/12/2022 [facility] [address] [place] [address] 078[address]OXCU 14 (METABOLIC PANEL)49562Lhqbmcdbcp Serum Ouxmlnpvpt77243-0296 mOsm/kg02/12/2022 [facility] [address] [place] [address] 349[address]DKKK 14 (METABOLIC PANEL)65093Dvyhyym21593-17.8 g/dL02/12/2022 [facility] [address] [place] [address]33[address]FDLB 14 (METABOLIC PANEL)34290Llrsw Bwymgvv6973-63.4 g/dL02/12/2022 [facility] [address] [place] [address] 52740UFTX 14 (METABOLIC PANEL)68699Vzwbdjcv7297-04.6 g/dL02/12/2022 [facility] [address] [place] [address] 00926BVVI 14 (METABOLIC PANEL)26887Pvoggln/Globulin Pdumm6757-41.1 02/12/2022 [facility] [address] [place] [address] 32274TPKR 14 (METABOLIC PANEL)38999URU KUEG9782-524.00 U/L02/12/2022 [facility] [address] [place] [address] 826[address]WHGI 14 (METABOLIC PANEL)89289RQSM/XVG9149-743 U/L02/12/2022 [facility] [address] [place] [address]79[address]GUDM 14 (METABOLIC PANEL)38200JMYA/ZIF6302-760 U/L02/12/2022 [facility] [address] [place] [address] 49011QTER 14 (METABOLIC PANEL)75019Ieehq Eshtwsoto8169-94.4 mg/dL 02/12/2022 [facility] [address] [place], [place] [address]RPLY 14 (METABOLIC PANEL)49419Dmlbeme55059-29.5 mg/dL02/12/2022 [facility] [address] [place], [place] [address]UIGV 14 (METABOLIC PANEL)15381Crgnklmay Orpvxvs74434-24.8 mg/dL 02/12/2022 [facility] [address] [place], [place] [address]VUXWYG LDL - LRSY96625QTJ-Flkvqg31334-8539 mg/dL02/12/2022 [facility] [address] [place] [address]H0P-QTDORMAZBAAQPWI0219-5Kphqi HGB R1Q05096-10.6 %02/12/2022 [facility] [address] [place] 77[address]B9M-ROAROKCKQKRLWGQ9569-7rBB65905-6211 mg/dL02/12/2022 [facility] [address] [place] [address]RHJPZCOW CBC W/ DIFF IXG12952YRI4602-75.1 K/ul11/03/2021 [facility] [address] [place] [address]CXDOCPKJ CBC W/ DIFF XKG09752VMC559-10.43 M/uL11/03/2021 [facility] [address] [place] [address]TASIGMED CBC W/ DIFF EXL51794Ppxosjkpby271-057.9 g/dL11/03/2021 [facility] [address] [place] [address]NGWPONEI CBC W/ DIFF LOJ26317Omrnxtjlda5950-419.0 %11/03/2021 [facility] [address] [place] [address]NRNXZNYL CBC W/ DIFF QHA62333CTB235-374.3 fL11/03/2021 [facility] [address] [place] [address]IRXSSOZZ CBC W/ DIFF AMD48887QXR917-296.8 pg11/03/2021 [facility] [address] [place] [address]BCEAGDYE CBC W/ DIFF RXW50237UCHP021-449.0 g/dL11/03/2021 [facility] [address] [place] [address]PQSIMRBV CBC W/ DIFF BEJ14301CNZ633-340.9 %11/03/2021 [facility] [address] [place] [address]AYWVQXOV CBC W/ DIFF QOQ58831Lfmhgcat Jsqon073-9722 K/uL11/03/2021 [facility] [address] [place] [address]WRBEFUMW CBC W/ DIFF ABS12255BON03722-45.8 fL11/03/2021 [facility] [address] [place], [place] [address]QBFBZFIC CBC W/ DIFF QZR59727Cdkwycsosgw %770-865.5 %11/03/2021 [facility] [address] [place], [place] [address]WWAYETRR CBC W/ DIFF BMX30103Ckbpschjziz %736-925.8 %11/03/2021 [facility] [address] [place], [place] [address]PEINDLNU CBC W/ DIFF CKU64013Ftkqmgnlb %5905-57.1 %11/03/2021 [facility] [address] [place], [place] [address]EILCJJUZ CBC W/ DIFF GLM42278Hcpudmzslgp %713-81.0 %11/03/2021 [facility] [address] [place], [place] [address]LTQAAITE CBC W/ DIFF RQA81553Jpfdqyeox%706-20.6 %11/03/2021 [facility] [address] [place], [place] [address]QMNFUNAU CBC W/ DIFF QCN22006Rhkffxtv Cihfxwrvof954-93765 /ul 11/03/2021 [facility] [address] [place], [place] [address]YMNNPCIF CBC W/ DIFF FGX56257Btzkoasg Fzwqmxmzyf65792-42638 /ul 11/03/2021 [facility] [address] [place], [place] [address]BUHSHXNQ CBC W/ DIFF DGU24643Fhrvwpqu Pbtktrhn371-9046 /ul 11/03/2021 [facility] [address] [place], [place] [address]GQTPRFJC CBC W/ DIFF HVP61604Jhubeiir Pmywztiihx982-560 /ul 11/03/2021 [facility] [address] [place], [place] [address]CLTIMLYT CBC W/ DIFF CTK62380Ibpqdzbj Omrrtjpw546-115 /ul11/03/2021 [facility] [address] [place], [place] [address]DQENEQB B-9352513Zsqwtvp N499682-2552 pg/mL11/03/2021 [facility] [address] [place], [place] [address]KUHC 14 (METABOLIC PANEL)89507Dzfizdd3045-7817 mg/dL11/03/2021 [facility] [address] [place], [place] [address]NUWP 14 (METABOLIC PANEL)74024DIF5378-931 mg/dL11/03/2021 [facility] [address] [place], [place] [address]ZFUX 14 (METABOLIC PANEL)29893Xopffklafb0910-78.7 mg/dL11/03/2021 [facility] [address] [place], [place] [address]LGLP 14 (METABOLIC PANEL)92333BYK/Creat Fasir8905-823.502 [facility] [address] [place], [place] [address]VUBI 14 (METABOLIC PANEL)19265ITR Dvhfpiqof56393-4726 mL/min/1.73m2 11/03/2021 [facility] [address] [place], [place] [address]FLFU 14 (METABOLIC PANEL)45179Nlkunz5229-1711 mmol/L11/03/2021 [facility] [address] [place] [address]KLAL 14 (METABOLIC PANEL)12780Lgvrfkbhg2686-23.6 mmol/L11/03/2021 [facility] [address] [place] [address] 236[address]RCYD 14 (METABOLIC PANEL)47623Xmqgtkla9098-1655 mmol/L11/03/2021 [facility] [address] [place], [place] [address]OAGN 14 (METABOLIC PANEL)93822Osjrh PG35192-978 mmol/L11/03/2021 [facility] [address] [place] [address] 20670LKAC 14 (METABOLIC PANEL)53407Niezr Xsf7827-289.6 mEq/L11/03/2021 [facility] [address] [place] [address]BTQU 14 (METABOLIC PANEL)70609Klyyfsrpkf Serum Mwlmsoqplk08279-3736 mOsm/kg11/03/2021 [facility] [address] [place], [place] [address]JOIZ 14 (METABOLIC PANEL)74334Vqkljhh97464-30.6 g/dL11/03/2021 [facility] [address] [place] [address] 632[address]EDPQ 14 (METABOLIC PANEL)20286Fgsfz Zgqxgln0887-07.8 g/dL11/03/2021 [facility] [address] [place] [address] 24607AIHG 14 (METABOLIC PANEL)24274Maudnlxq0608-98.2 g/dL11/03/2021 [facility] [address] [place], [place] [address]ZYWM 14 (METABOLIC PANEL)84827Ytjnzkh/Globulin Aoexl8237-47.1 11/03/2021 [facility] [address] [place], [place] [address]LDFB 14 (METABOLIC PANEL)05507XTM CHPY1780-874.00 U/L11/03/2021 [facility] [address] [place], [place] [address]ATCD 14 (METABOLIC PANEL)30772RTTD/ACS7986-777 U/L11/03/2021 [facility] [address] [place], [place] [address]CMME 14 (METABOLIC PANEL)78035FPYM/XIJ2008-988 U/L11/03/2021 [facility] [address] [place], [place] [address]PJFQ 14 (METABOLIC PANEL)41079Yucrg Lqizjlsml1610-05.3 mg/dL 11/03/2021 [facility] [address] [place], [place] [address]EVKN 14 (METABOLIC PANEL)88978Kjzzofq27487-63.2 mg/dL11/03/2021 [facility] [address] [place], [place] [address]GBYD 14 (METABOLIC PANEL)89078Zlnmzdrzu Hqxqfqc08114-30.7 mg/dL 11/03/2021 [facility] [address] [place], [place] [address]LJJQUV LDL - PHXT50828CGU-Bxblrx59005-8725 mg/dL11/03/2021 [facility] [address] [place] [address] 484[address]NZS - BRZA57060MSW8709-370 mg/dL11/03/2021 [facility] [address] [place] [address] 13132QXF - PXAD59452WTF34857-294 %11/03/2021 [facility] [address] [place] [address] 88545C5S-OBFVQYGLKQUGMGT1785-2Prjsg HGB G9U66909-98.6 %11/03/2021 [facility] [address] [place], [place] [address]S4Z-MJSFTZPGAABPJZN0044-4gGC29643-1881 mg/dL11/03/2021 [facility] [address] [place], [place] [address]QDKOWDPBKY27538Nsqymnddoe12713-575 mg/dL11/03/2021 [facility] [address] [place], [place] [address]BUPDZVJDB48014Krennisfk50463-37.3 mg/dL11/03/2021 [facility] [address] [place], [place] [address]YLQ18061OGS9965-6381.5 pg/mL11/03/2021 [facility] [address] [place], [place] [address]YMB27943UYC54653-12.390 uIU/mL11/03/2021 [facility] [address] [place], [place] [address]ITMYZLR J06306Mnssvyl X78513-431.4 ng/mL11/03/2021 [facility] [address] [place], [place] [address]JCVUQVVZGRL82017Icemletmbtq5998-1061 mg/dL11/03/2021 [facility] [address] [place], [place] [address]SVVVXVXUOBKFP00202Qltdwfrkmgkvk3208-8445 mg/dL11/03/2021 [facility] [address] [place], [place] [address]NCLTXTCUALXXU28454WSYN48776-946 mg/dL11/03/2021 [facility] [address] [place], [place] [address]RAKYKGKLUBJV (URINE)72101Fhzziemskfur63012-3EF SPECIMEN RECEIVED mg/dL04/04/2021 [facility] [address] [place] [address] 72406ONRYMWQZTSYH (URINE)38064Psaywujccnqk/Creatinine Evjsz44025-5AA SPECIMEN RECEIVED MCG/HKPHQLK3404/04/2021 [facility] [address] [place] [address] 20462CVNOHQFOZGPA (URINE)58027Eqyne Daynaketto0605-9BD SPECIMEN RECEIVED mg/dL04/04/2021 [facility] [address] [place] [address] 19110BYLFVRT E-GLJACRLD40564ERA Ordspop9444-62.11 g/dL02/09/2021 [facility] [address] [place], [place] [address]GGJHPQE E-IYKFQPIP09454IHP Alpha 84511-75.19 g/dL02/09/2021 [facility] [address] [place], [place] [address]TBPAUNP E-SPAJOOEY03555OPI Alpha 22159-75.76 g/dL02/09/2021 [facility] [address] [place], [place] [address]ZJRNPDD E-YTNLASIF17979GLZ Beta 37013-02.52 g/dL02/09/2021 [facility] [address] [facility] [place], [place] [address]LALXQRD E-XONFYCXA63846FOJ Beta 95409-24.39 g/dL02/09/2021 [facility] [address] [facility] [place] [address]FUVKNZN E-XJXDIRUP16386SGU Iqvhc6662-86.73 g/dL02/09/2021 [facility] [address] [place], [place] [address]CBQONZQ E-NANGTLFK74563ZFK Pathology Gyzkybr20081-0Jikkwv pattern.Meet Costa MD (Clinical Pathologist)02/09/2021 [facility] [address] [place], [place] [address]GCKZCAEPTMFEWF (CHANTE)23122Eesvc IgM Dyzp20158-9Qzqhyv63/10/2021 [facility] [address] [place], [place] [address]HANKOZVBJLVQDN (CHANTE)73414Ocxdo IgG Mrec29126-5Kwbnwh80/10/2021 [facility] [address] [place], [place] [address]UVQGTLDWFRYPEX (CHANTE)165[address]Hbeig IgA Pzcn34788-3Clrfpz06/10/2021 [facility] [address] [place], [place] [address]RQDMXRTRHSUULJ (CHANTE)30659Jpqke Dola Abll17263-2Pdqccm35/10/2021 [facility] [address] [place], [place] [address]VBVCZNULJFAWGA (CHANTE)82100Kodsp Lambda Ogra43020-3Ohhltm13/10/2021 [facility] [address] [place] [address] 813[address]ALIJWAEUVAWOKT (CHANTE)34393GIA Pathology Ndixjxe95384-9Foxmsdjx serum Immunofixation. Meet Costa MD (Clinical Pathologist)02/09/2021 [facility] [address] [place] [address]35[address]Evnifdsyu pitch00437Uhnwdjjsf A IgM (Acute)75748-3Xlu-sqrkjyrd (Negative)02/05/2021 [facility] [address] [place], [place] [address]Pcivsqxzf nejor73548Kqvgmtqps B Surface Zllkioi7736-6Gyq-Eskseesb (Negative)02/05/2021 [facility] [address] [place], [place] [address]Wwsdfszaq nlsre28220Qjtttalmf B Core Antibody (IgM)26113-0Xyc- Reactive (Negative)02/05/2021 [facility] [address] [place] [address] 59[address]Wzbmuiqxy espxf77903Qjshfysgs C IgG Fcimcvxm77098-6Ntp-Dxfrsixb (Negative)02/05/2021 [facility] [address] [place], [place] [address]BKV98712l8BAE9819-1034 mg/dL02/05/2021 [facility] [address] [place], [place] [address]DHA60675k4EED5557-7604 mg/dL02/05/2021 [facility] [address] [place], [place] [address]KSG36589t6LXK6675-2494 mg/dL02/05/2021 [facility] [address] [place], [place] [address]CDQN 14 (METABOLIC PANEL)58163Pghosei0006-357 mg/dL01/30/2021 [facility] [address] [place], [place] [address]LZLW 14 (METABOLIC PANEL)61567CXL6434-993 mg/dL01/30/2021 [facility] [address] [place], [place] [address]NWKD 14 (METABOLIC PANEL)09490Lwomssdzur2036-20.7 mg/dL01/30/2021 [facility] [address] [place], [place] [address]FGQV 14 (METABOLIC PANEL)29736YLC/Creat Vqhzc5167-432.604 [facility] [address] [place], [place] [address]MXBF 14 (METABOLIC PANEL)42891TMX Gkutxefsf73831-385 mL/min/1.73m2 01/30/2021 [facility] [address] [place], [place] [address]YBQA 14 (METABOLIC PANEL)43413HAT Estimated for Americans [address] mL/min/1.99o64301/30/2021 [facility] [address] [place], [place] [address]WALM 14 (METABOLIC PANEL)34227Dxsbvw3210-1533 mmol/L01/30/2021 [facility] [address] [place], [place] [address]MDFD 14 (METABOLIC PANEL)51256Feltcllqm7283-94.0 mmol/L01/30/2021 [facility] [address] [place], [place] [address]YJEZ 14 (METABOLIC PANEL)35903Xajpqbbr9692-7451 mmol/L01/30/2021 [facility] [address] [place] [address] 95339ZZJY 14 (METABOLIC PANEL)16061Esoun VD23549-494 mmol/L01/30/2021 [facility] [address] [place] [address] 986[address]ZXPT 14 (METABOLIC PANEL)25985Ggxefycabe Serum Teqbofwptd37686-9661 mOsm/kg01/30/2021 [facility] [address] [place] [address] 07276JVYT 14 (METABOLIC PANEL)20884Kcsbj Gyr0711-911.0 mEq/L01/30/2021 [facility] [address] [place] [address] 722[address]RJVL 14 (METABOLIC PANEL)49786Ackbgka22651-20.4 g/dL01/30/2021 [facility] [address] [place] [address] 83468JDDX 14 (METABOLIC PANEL)92768Uiszx Zwowpvl9295-36.7 g/dL01/30/2021 [facility] [address] [place] [address] 705[address]NFOP 14 (METABOLIC PANEL)49592Upzzueed3961-10.3 g/dL01/30/2021 [facility] [address] [place] [address] 861[address]GRFJ 14 (METABOLIC PANEL)34654Wpcofum/Globulin Tknhh7149-34.0 01/30/2021 [facility] [address] [place] [address] 597[address]KQMO 14 (METABOLIC PANEL)46743HWP HFGA4577-5299.00 U/L01/30/2021 [facility] [address] [place] [address] 70603HYFQ 14 (METABOLIC PANEL)72890GAKR/RVJ5513-741 U/L01/30/2021 [facility] [address] [place] [address] 16269ZRRG 14 (METABOLIC PANEL)14462VZRG/PTL8301-4417 U/L01/30/2021 [facility] [address] [place] [address] 13418JTYU 14 (METABOLIC PANEL)75435Nfvkf Zxbgnmdcf9660-10.3 mg/dL 01/30/2021 [facility] [address] [place], [place] [address]PFQI 14 (METABOLIC PANEL)29260Yyarbao77999-14.1 mg/dL01/30/2021 [facility] [address] [place] [address] 38683JOBW 14 (METABOLIC PANEL)51534Juxwhmfjy Mjeutbp50655-95.7 mg/dL 01/30/2021 [facility] [address] [facility] [place] [address]IZQGCZH B-1817024Igmircs C823064-2110 pg/mL01/30/2021 [facility] [address] [facility] [place] [address]CGM66666EMN61227-81.830 uIU/mL01/30/2021 [facility] [address] [facility] [place] [address]IQECJJLN CBC W/ DIFF YEO18360LIS4206-45.5 K/ul01/30/2021 [facility] [address] [place], [place] [address]EJNKSPWW CBC W/ DIFF ROU25918NDG277-20.08 M/uL01/30/2021 [facility] [address] [place], [place] [address]HHEOSAEZ CBC W/ DIFF KUO84105Kbpeswxwiu256-867.4 g/dL01/30/2021 [facility] [address] [place], [place] [address]OWWJLNBV CBC W/ DIFF TMG28868Kcwuhkzaeu3563-890.6 %01/30/2021 [facility] [address] [place], [place] [address]WRSHJVQA CBC W/ DIFF ZZG63257XYX146-605.7 fL01/30/2021 [facility] [address] [place], [place] [address]ERADYYST CBC W/ DIFF TXC25148JFC532-140.9 pg01/30/2021 [facility] [address] [place], [place] [address]DQUSBAGL CBC W/ DIFF GII56632RRPL307-312.0 g/dL01/30/2021 [facility] [address] [place], [place] [address]HZBDSKIY CBC W/ DIFF AXH34666RMQ125-533.3 %01/30/2021 [facility] [address] [facility] [place] [address]VCJFKZSX CBC W/ DIFF RRR36712Vmuvxkuj Mjqvx276-1709 K/uL01/30/2021 [facility] [address] [place], [place] [address]ZIFFNFVX CBC W/ DIFF ZLA89921FPW50957-61.9 fL01/30/2021 [facility] [address] [place], [place] [address]VEOZGQSO CBC W/ DIFF RKO07849Iwgnjtovgra %770-846.6 %01/30/2021 [facility] [address] [place], [place] [address]XFZEZBVV CBC W/ DIFF AGN32232Djgunhulyfk %736-929.7 %01/30/2021 [facility] [address] [place], [place] [address]YOSMRXWH CBC W/ DIFF CTH31228Yyilglnqw %5905-56.4 %01/30/2021 [facility] [address] [place], [place] [address]UIKDXCRN CBC W/ DIFF TID46005Kwiwhzyotwq %713-816.7 %01/30/2021 [facility] [address] [place], [place] [address]XOPBJVYT CBC W/ DIFF UUO20419Zcwdkeeok%706-20.6 %01/30/2021 [facility] [address] [place], [place] [address]VOSOKPQA CBC W/ DIFF QIA93682Xwgrpxuu Rnqdvklzbp491-15369 /ul 01/30/2021 [facility] [address] [place], [place] [address]JGEFLIIT CBC W/ DIFF NXG68542Ibpcbthc Pzlysnahsd64845-90647 /ul 01/30/2021 [facility] [address] [place], [place] [address]UJQSJMII CBC W/ DIFF RXS54019Bvbunvoa Trwstqds261-7913 /ul 01/30/2021 [facility] [address] [place], [place] [address]QKIMUQNS CBC W/ DIFF OCG48059Pwzzexzg Awuftrssqm607-37399 /ul 01/30/2021 [facility] [address] [place], [place] [address]JWDCMPXJ CBC W/ DIFF HHF15025Csfvhqza Daqewyyh252-503 /ul01/30/2021 [facility] [address] [place], [place] [address]FGFYBHWOVP08615Lrofapwbqw98060-417 mg/dL01/30/2021 [facility] [address] [place], [place] [address]HGHAFO71280Cmeuzd8776-408.0 ng/mL01/30/2021 [facility] [address] [place], [place] [address]G1Y-SQHVBDEXUOUXBDA1251-3Vuxge HGB G5K68446-50.3 %01/30/2021 [facility] [address] [place], [place] [address]Y5V-KYOJRTMRQDJVXSA8912-5hMF36812-9575 mg/dL01/30/2021 [facility] [address] [place], [place] [address]DIONEZZRBR70146Payklbvixh76433-640 mg/dL11/03/2020 [facility] [address] [place], [place] [address]SKIL 14 (METABOLIC PANEL)64536Pxxoedg1795-4035 mg/dL11/03/2020 [facility] [address] [place], [place] [address]FNUN 14 (METABOLIC PANEL)81427TKY2901-511 mg/dL11/03/2020 [facility] [address] [place], [place] [address]UVUC 14 (METABOLIC PANEL)41165Lyuncxbcan4117-35.7 mg/dL11/03/2020 [facility] [address] [place], [place] [address]BDVE 14 (METABOLIC PANEL)36285LFT/Creat Rjmha3250-417.402 [facility] [address] [place], [place] [address]FRNF 14 (METABOLIC PANEL)05655QXG Eishqaqhj81830-241 mL/min/1.73m2 11/03/2020 [facility] [address] [place] [address] 89508JGYV 14 (METABOLIC PANEL)27333Fyzvsy6775-8988 mmol/L11/03/2020 [facility] [address] [place] [address] 94180XLRE 14 (METABOLIC PANEL)62492ZUY Estimated for Americans [address] mL/min/1.06w29611/03/2020 [facility] [address] [place] [address] 41742TOFS 14 (METABOLIC PANEL)14285Nxtakzsry1217-84.7 mmol/L11/03/2020 [facility] [address] [place], [place] [address]ELPH 14 (METABOLIC PANEL)71883Fesbjpok8252-7240 mmol/L11/03/2020 [facility] [address] [place], [place] [address]ZFZF 14 (METABOLIC PANEL)04069Oyllx UB94349-049 mmol/L11/03/2020 [facility] [address] [place] [address] 86655VOOG 14 (METABOLIC PANEL)03021Tvlyi Ytr0629-963.7 mEq/L11/03/2020 [facility] [address] [place], [place] [address]AMPD 14 (METABOLIC PANEL)28070Angqgnerlh Serum Yplrxhbtze57920-6451 mOsm/kg11/03/2020 [facility] [address] [place] [address] 27981SWNZ 14 (METABOLIC PANEL)60229Nxcfjvo41308-41.7 g/dL11/03/2020 [facility] [address] [place] [address] 31758JWZR 14 (METABOLIC PANEL)99730Celnu Gfguwll1824-99.9 g/dL11/03/2020 [facility] [address] [place] [address] 645[address]UJNP 14 (METABOLIC PANEL)85935Hdprpfqf8887-07.2 g/dL11/03/2020 [facility] [address] [place], [place] [address]CCUG 14 (METABOLIC PANEL)83157Bkibekg/Globulin Vbwtj3421-09.2 11/03/2020 [facility] [address] [place] [address] 77644BSIQ 14 (METABOLIC PANEL)41117YLV PHJW1505-450.00 U/L11/03/2020 [facility] [address] [place] [address] 11642TPIY 14 (METABOLIC PANEL)45739NUBD/KAI3939-386 U/L11/03/2020 [facility] [address] [place] [address] 28453LQRC 14 (METABOLIC PANEL)84426HYNW/CEE9506-780 U/L11/03/2020 [facility] [address] [place] [address] 50152FTIR 14 (METABOLIC PANEL)00340Akszs Scwvvndog2349-57.3 mg/dL 11/03/2020 [facility] [address] [place] [address] 37488DBAH 14 (METABOLIC PANEL)52808Amztunu39916-96.0 mg/dL11/03/2020 [facility] [address] [place], [place] [address]VRCS 14 (METABOLIC PANEL)07316Zjlfukkfn Vqstqta76438-20.4 mg/dL 11/03/2020 [facility] [address] [place] [address] 015[address]NSUVLIROZ85763Ixjmehbyf86282-49.6 mg/dL11/03/2020 [facility] [address] [place], [place] [address]U4L-FDLWLWJQAKTQFUC3041-4Scnyn HGB T4B61768-29.6 %11/01/2020 [facility] [address] [facility] [place] [address]G6L-PFMUONHJTZITYYO2178-4gSA01640-1140 mg/dL11/01/2020 [facility] [address] [facility]ella [place], [place] [address]Tn OrdersNo OrdersNo Kqsdrr417 [facility] [address] [place], [place] [address]Judzbk Molecular UTI TestRMUTIMolecular UTI TestSEE ATTACHMENT APPROVAL USNICDL1910/01/2020 [facility] [address] [place], [place] [address]ZWL57585LEQ9369-562.8 pg/mL09/29/2020 [facility] [address] [place], [place] [address]T4W-RARKXBZCCMPFVJL1381-1Gyoou HGB V6U46404-8QFX COMMENT % 09/27/2020 [facility] [address] [place], [place] [address]X3J-NXENYEFXKCGQKEL4336-0aIZ07963-4OQH COMMENT mg/dL09/27/2020 [facility] [address] [place], [place] [address]NYRC 14 (METABOLIC PANEL)14895Gpkvxii0716-8699 mg/dL09/27/2020 [facility] [address] [place], [place] [address]JARK 14 (METABOLIC PANEL)75772KFK6368-195 mg/dL09/27/2020 [facility] [address] [place], [place] [address]WKVX 14 (METABOLIC PANEL)90996Ywhodbwfms0255-31.8 mg/dL09/27/2020 [facility] [address] [place], [place] [address]ZIFP 14 (METABOLIC PANEL)42168PUS/Creat Wexua0747-801.9111/28/2019 [facility] [address] [place], [place] [address]BPDW 14 (METABOLIC PANEL)58947BZK Gfegidboo35682-063 mL/min/1.73m2 09/27/2020 [facility] [address] [place], [place] [address]WEWV 14 (METABOLIC PANEL)80810Sjenti3234-1954 mmol/L111/28/2019 [facility] [address] [place], [place] [address]URAI 14 (METABOLIC PANEL)29494WMZ Estimated for Americans 90073-006 mL/min/1.95g56409/27/2020 [facility] [address] [place], [place] [address]AETE 14 (METABOLIC PANEL)80716Yexbzsadp3478-15.2 mmol/L111/28/2019 [facility] [address] [place], [place] [address]FSYQ 14 (METABOLIC PANEL)75959Zdssktmh9353-7829 mmol/L111/28/2019 [facility] [address] [place], [place] [address]OZFM 14 (METABOLIC PANEL)96245Vmhni EN51700-108 mmol/L111/28/2019 [facility] [address] [place], [place] [address]PQDG 14 (METABOLIC PANEL)48445Uljtjzlwns Serum Yxdpcsmkst71319-4540 mOsm/kg09/27/2020 [facility] [address] [place] [address] 27928KTGT 14 (METABOLIC PANEL)51547Bqwsc Szu4545-416.2 mEq/L111/28/2019 [facility] [address] [place] [address] 16505ADOL 14 (METABOLIC PANEL)99778Hazijdt02896-64.0 g/dL09/27/2020 [facility] [address] [place] [address] 45677DCCT 14 (METABOLIC PANEL)81985Sdyrw Blyxtzu8889-85.7 g/dL09/27/2020 [facility] [address] [place] [address] 18876VZCI 14 (METABOLIC PANEL)02856Udapbwog5133-60.7 g/dL09/27/2020 [facility] [address] [place] [address] 19614SZJB 14 (METABOLIC PANEL)91139Ozxgehq/Globulin Yuyqa7855-49.1 09/27/2020 [facility] [address] [place] [address] 03330IWNK 14 (METABOLIC PANEL)69649XLV YAKE9364-195.00 U/L111/28/2019 [facility] [address] [place] [address] 98291OJPO 14 (METABOLIC PANEL)51800TNCU/BPN1593-339 U/L111/28/2019 [facility] [address] [place], [place] [address]ADOH 14 (METABOLIC PANEL)68236YCFS/WMS3052-472 U/L111/28/2019 [facility] [address] [place], [place] [address]WMCE 14 (METABOLIC PANEL)60385Kilrg Chpxpiolh6631-71.5 mg/dL 09/27/2020 [facility] [address] [place], [place] [address]SDRZ 14 (METABOLIC PANEL)31715Jnfxujb03965-81.4 mg/dL09/27/2020 [facility] [address] [address]IQPS 14 (METABOLIC PANEL)91245Swmpvbkak Drpsnjs53535-52.6 mg/dL 09/27/2020 [facility] [address] [address]Mqocwd UA to Molecular UTI Vjgw71984JOlkohnr6250-1JEW COMMENT mg/dL 09/27/2020 [facility] [address] [address]Smxact UA to Molecular UTI Xwsa76186YVjvgsqdIZQ COMMENT mg/dL 09/27/2020 [facility] [address] [place] [address]Umsbat UA to Molecular UTI Foet95164JXntupehlsFUB COMMENT mg/dL 09/27/2020 [facility] [address] [place] [address]Sjuqyj UA to Molecular UTI Npqu98083NNdjbxdimlvadXDB COMMENT mg/dL 09/27/2020 [facility] [address] [place] [address]Urnzow UA to Molecular UTI Wjlt57029SHiRPA KNCISNR7009/27/2020 [facility] [address] [place] [address]Rlrpby UA to Molecular UTI Edmz13177BVtftlMZG COMMENT mg/dL 09/27/2020 [facility] [address] [place] [address]Lcnnbe UA to Molecular UTI Udir46708UIychgpeSHL COMMENT mg/dL 09/27/2020 [facility] [address] [place] [address]Rhsuib UA to Molecular UTI Wcjs74034RHerdhpjRDU TQLABZU0009/27/2020 [facility] [address] [address]Ymjkzb UA to Molecular UTI Yeak20032JHxgqqdwpwtAAX COMMENT WBCs/uL 09/27/2020 [facility] [address] [address]Lkrkzp UA to Molecular UTI Uvjg40952CKqxxdkbZSO NMHZAJO4709/27/2020 [facility] [address] [address]Celrjj UA to Molecular UTI Ziek52402WBdrvfocx GravitySEE COMMENT 09/27/2020 [facility] [address] [address]Faltdb UA to Molecular UTI Hers99645DQrnwkWQR MAXQSSR2509/27/2020 [facility] [address] [address]Xfjgsa UA to Molecular UTI Mssw20405SXnffjhwv AcidSEE COMMENT mg/dL 09/27/2020 [facility] [address] [place] [address]SBTNTNLYRAFG (URINE)65114Lxsrztpcfzfn65970-09.7 mg/dL09/27/2020 [facility] [address] [address]JOFAZWOCTTGL (URINE)97378Qsvyvitnuzuc/Creatinine Mfxlc73447-235 MCG/UBTUDNC82/26/2020 [facility] [address] [place] [address]WXULTECPHNSG (URINE)03705Xadcz Akjzfueoma5988-6817.00 mg/dL 09/27/2020 [facility] [address] [place], [place] [address]QZEALOA B-1214009Hgjbnra U118413-1708 pg/mL06/13/2020 [facility] [address] [address]KGRFLM LDL - YDAD71676YKP-Xmhair33959-4152 mg/dL06/13/2020 [facility] [address] [facility] [place] [address]LHLIOPKJKX63187Vrmjcwzodt46670-704 mg/dL06/13/2020 [facility] [address] [address]AHO44438UVI99022-44.731 uIU/mL06/13/2020 [facility] [address] [address]OBZTZHHZJKBXW04202Pprldxawntqfo2555-9317 mg/dL06/13/2020 [facility] [address] [address]PMSEKSYOFFPGS54088VWZJ22910-049 mg/dL06/13/2020 [facility] [address] [address]SLIDESLIDE_SCANPlatelet Epaijjtr9702-0Gwusvq42/11/2020 [facility] [address] [address]SLIDESLIDE_SCANPoikilocytosis779-92+06/13/2020 [facility] [address] [address]SLIDESLIDE_SCANEchinocytes7790-91+06/13/2020 [facility] [address] [address]SLIDESLIDE_SCANElliptocytes11274-81+06/13/2020 [facility] [address] [facility] [place] [address]S4V-OSXYBVLJMBZURFP1557-3Swmew HGB D4U45873-24.5 %06/13/2020 [facility] [address] [address]M4J-EOJJSZQGXELUZMW7676-9tNY32780-4078 mg/dL06/13/2020 [facility] [address] [address]CHVTLRKH CBC W/ DIFF ZPN43000OSH9799-085.5 K/ul06/13/2020 [facility] [address] [address]IUZWOLFO CBC W/ DIFF OBY36594HPV978-06.34 M/uL06/13/2020 [facility] [address] [address]VLLIAQBJ CBC W/ DIFF HIM61457Slfcoqvlrh196-719.0 g/dL06/13/2020 [facility] [address] [address]HYUAKRAW CBC W/ DIFF ONA31814Uuztfrtcee2855-346.8 %06/13/2020 [facility] [address] [address]LKITWNKM CBC W/ DIFF UMH57371YDY263-097.5 fL06/13/2020 [facility] [address] [address]CCGKGYNF CBC W/ DIFF VTG23561VFX946-095.8 pg06/13/2020 [facility] [address] [address]LAJHBTLO CBC W/ DIFF GGQ65942XMUG330-691.0 g/dL06/13/2020 [facility] [address] [address]EAYERZJO CBC W/ DIFF OYA88241AEY481-238.0 %06/13/2020 [facility] [address] [address]FFXSNEIA CBC W/ DIFF RGE07924Nqekkcll Ezbkg328-0470 K/uL06/13/2020 [facility] [address] [address]IIYSOJBO CBC W/ DIFF IKG31830CTA72631-799.0 fL06/13/2020 [facility] [address] [address]RUYIURIR CBC W/ DIFF FDU40502Tixryhxxgaj %770-884.6 %06/13/2020 [facility] [address] [address]PXBLAMDU CBC W/ DIFF VSV54132Moasovfgwft %736-911.4 %06/13/2020 [facility] [address] [address]PILYYHSP CBC W/ DIFF LWW64789Umjuouohu %5905-53.3 %06/13/2020 [facility] [address] [address]PZNMFZQR CBC W/ DIFF VDC00207Zwpgcvysugn %713-80.6 %06/13/2020 [facility] [address] [place], [place] [address]ILFGSCKU CBC W/ DIFF EKU88280Wieszwtol%706-20.1 %06/13/2020 [facility] [address] [place], [place] [address]RIGDMCSW CBC W/ DIFF JCI10752Eafglbly Nfyodmojus730-233967 /ul 06/13/2020 [facility] [address] [place], [place] [address]HBEZFXGJ CBC W/ DIFF IIX22263Sqltxwzn Vwaqldevza85435-96948 /ul 06/13/2020 [facility] [address] [place], [place] [address]MFVVYIGV CBC W/ DIFF VRL32472Xkmhqgor Jybvbymi373-9072 /ul 06/13/2020 [facility] [address] [place] [address]FKDYWVVM CBC W/ DIFF OTD84096Jpoghgrn Vndamonlcc551-504 /ul 06/13/2020 [facility] [address] [place] [address]ZTFKBJDS CBC W/ DIFF CYO82970Gwnxyooe Naaaowyp219-792 /ul06/13/2020 [facility] [address] [place], [place] [address]QRTXCSCBZZK03003Azvzzanvzsi3927-3884 mg/dL06/13/2020 [facility] [address] [place], [place] [address]BREG 14 (METABOLIC PANEL)04708Nadocub3434-178 mg/dL06/13/2020 [facility] [address] [place], [place] [address]HHQR 14 (METABOLIC PANEL)27961YVM8317-164 mg/dL06/13/2020 [facility] [address] [place], [place] [address]IMNU 14 (METABOLIC PANEL)12961Scmoukfjkq3521-53.8 mg/dL06/13/2020 [facility] [address] [place], [place] [address]HTGE 14 (METABOLIC PANEL)50823WDN/Creat Mqnvo5231-081.[address] [facility] [address] [place] [address]SDPH 14 (METABOLIC PANEL)55213VWY Bvdudrako51993-457 mL/min/1.73m2 06/13/[address] [facility] [address] [place] [address]UEBF 14 (METABOLIC PANEL)66270Xsgbgm2760-3504 mmol/L06/13/2020 [facility] [address] [place], [place] [address]WFVJ 14 (METABOLIC PANEL)726[address]KPZ Estimated for Americans 70722-505 mL/min/1.62f13506/13/2020 [facility] [address] [place] [address]YUMU 14 (METABOLIC PANEL)14966Lwyjawhgq8994-35.4 mmol/L06/13/2020 [facility] [address] [place] [address] 333[address]USMA 14 (METABOLIC PANEL)10620Jrefzrcs4810-8710 mmol/L06/13/2020 [facility] [address] [place] [address] 04604RHFK 14 (METABOLIC PANEL)83574Lcuyo KK66760-282 mmol/L06/13/[address] [facility] [address] [place] [address] 517[address]HUAW 14 (METABOLIC PANEL)51674Lmzpzcrqcq Serum Poyqwelfya87621-1950 mOsm/kg06/13/2020 [facility] [address] [place] [address]68[address]RBNA 14 (METABOLIC PANEL)36959Rmomf Luj1732-188.4 mEq/L06/13/[address] [facility] [address] [place] [address] 45931JGQC 14 (METABOLIC PANEL)73094Fyqjchw79062-00.8 g/dL06/13/2020 [facility] [address] [place] [address] 52283QKHQ 14 (METABOLIC PANEL)87685Cszlj Viqqdbt2618-67.1 g/dL06/13/[address] [facility] [address] [place] [address] 01195KQFH 14 (METABOLIC PANEL)44368Fwsvbkub0542-08.3 g/dL06/13/[address] [facility] [address] [place] [address] 22816GLZN 14 (METABOLIC PANEL)67456Jrttmtn/Globulin Wusjm4867-18.2 06/13/[address] [facility] [address] [place] [address] 896[address]VRVX 14 (METABOLIC PANEL)13482NEC JMDX2021-512.00 U/L06/13/2020 [facility] [address] [place] [address]TDQN 14 (METABOLIC PANEL)83477QEJZ/LZY6439-13 U/L06/13/2020 [facility] [address] [place] [address]VDQK 14 (METABOLIC PANEL)58017DGRF/WZT9359-945 U/L06/13/2020 [facility] [address] [facility] [place] [address]BJRB 14 (METABOLIC PANEL)77134Thsys Fmkepzqsc0373-36.3 mg/dL 06/13/2020 [facility] [address] [place], [place] [address]YPYE 14 (METABOLIC PANEL)56824Nomkhjc59851-10.2 mg/dL06/13/2020 [facility] [address] [facility] [place] [address]MRRC 14 (METABOLIC PANEL)27113Tsirjnogk Jeimhgt83522-81.5 mg/dL 06/13/2020 [facility] [address] [place], [place] [address]FYCVNLY O51832Mnmuxcs F17725-977.1 ng/mL06/13/2020 [facility] [address] [place], [place] [address]LLQ - EYNG71567DPY0636-446 mg/dL06/13/2020 [facility] [address] [facility] [place] [address]AMT - DKFW49152LCH36751-959 %06/13/2020 [facility] [address] [place], [place] [address]Dj OrdersNo OrdersNo Vfmskr654 [facility] [address] [facility] [place], [place] [address]P3X-SYBMSPAFNRZQWDY4435-2Omiwz HGB U6H22057-41.6 %04/14/2020 [facility] [address] [place], [place] [address]V8L-PJQQEPORYDSEAWF4059-9dAC30400-2989 mg/dL04/14/2020 [facility] [address] [facility] [place], [place] [address]UQCU 14 (METABOLIC PANEL)17198Porsvpj5223-097 mg/dL04/14/2020 [facility] [address] [place], [place] [address]QWHC 14 (METABOLIC PANEL)50445QCH2520-584 mg/dL04/14/2020 [facility] [address] [place], [place] [address]OEYH 14 (METABOLIC PANEL)65495Ozizflmywt6753-21.6 mg/dL04/14/2020 [facility] [address] [place], [place] [address]GHNO 14 (METABOLIC PANEL)60204PKT/Creat Vaxwz5924-826.807 [facility] [address] [place], [place] [address]IZNW 14 (METABOLIC PANEL)49962SWC Xoyppjdtd55254-6887 mL/min/1.73m2 04/14/2020 [facility] [address] [place], [place] [address]GFMQ 14 (METABOLIC PANEL)88029BPP Estimated for Americans [address] mL/min/1.27z39904/14/2020 [facility] [address] [place], [place] [address]ZAXY 14 (METABOLIC PANEL)78609Pgjjxz8640-5436 mmol/L04/14/2020 [facility] [address] [place], [place] [address]WQRX 14 (METABOLIC PANEL)13017Wreqeplnr3898-43.8 mmol/L04/14/2020 [facility] [address] [place], [place] [address]UNES 14 (METABOLIC PANEL)46209Otckyhci7408-5012 mmol/L04/14/2020 [facility] [address] [place], [place] [address]NPDV 14 (METABOLIC PANEL)11546Aruwj TE46789-956 mmol/L04/14/[address] [facility] [address] [place] [address] 67[address]JNZP 14 (METABOLIC PANEL)69805Fyjjh Hul7749-111.8 mEq/L04/14/2020 [facility] [address] [place], [place] [address]WHBN 14 (METABOLIC PANEL)45661Onaannnaus Serum Ivxyjwjfvz81597-1915 mOsm/kg04/14/2020 [facility] [address] [place], [place] [address]FWJL 14 (METABOLIC PANEL)04160Zwazmcm84892-73.9 g/dL04/14/2020 [facility] [address] [place], [place] [address]IKGP 14 (METABOLIC PANEL)83559Tkmuk Utcmsnf8611-40.3 g/dL04/14/2020 [facility] [address] [place], [place] [address]ILTX 14 (METABOLIC PANEL)76122Czjvsitx0125-79.4 g/dL04/14/2020 [facility] [address] [place], [place] [address]JHEQ 14 (METABOLIC PANEL)37815Yoycpzm/Globulin Rkkop1341-16.1 04/14/2020 [facility] [address] [place], [place] [address]ZWRD 14 (METABOLIC PANEL)68155FQC ZJXG3769-953.00 U/L04/14/2020 [facility] [address] [place], [place] [address]PUYR 14 (METABOLIC PANEL)63232UWTS/PCP3814-324 U/L04/14/2020 [facility] [address] [place], [place] [address]UNQL 14 (METABOLIC PANEL)53036GWHE/VEA3612-741 U/L04/14/2020 [facility] [address] [place], [place] [address]YXMK 14 (METABOLIC PANEL)37193Hsvrn Kuxumwosd0174-49.4 mg/dL 04/14/2020 [facility] [address] [place], [place] [address]XTPB 14 (METABOLIC PANEL)21065Cxioltv56182-31.9 mg/dL04/14/2020 [facility] [address] [place], [place] [address]QQSD 14 (METABOLIC PANEL)93204Wtdbuzliy Rydpwpk10830-56.1 mg/dL 04/14/2020 [facility] [address] [place], [place] [address]OPSZNCLICZ57272Mgoxmqrbhf2012-19.9 mg/dL04/14/2020 [facility] [address] [place], [place] [address]RBTBCRPQ CBC W/ DIFF GQM70938CBN3295-273.4 K/ul04/14/2020 [facility] [address] [place], [place] [address]MKGXKOQR CBC W/ DIFF EVQ38897YLB021-61.34 M/uL04/14/2020 [facility] [address] [place], [place] [address]ERHONGRA CBC W/ DIFF FDK38192Stuxlgdguq928-830.2 g/dL04/14/2020 [facility] [address] [place], [place] [address]PHAXXHIA CBC W/ DIFF NKE79211Zekictdfjo3013-349.0 %04/14/2020 [facility] [address] [place], [place] [address]RCADUKIK CBC W/ DIFF UTE23567AQR696-769.0 fL04/14/2020 [facility] [address] [place], [place] [address]YAGBGCVH CBC W/ DIFF OWU79304SOR972-573.2 pg04/14/2020 [facility] [address] [address]SDPSLWIK CBC W/ DIFF NJO32958JWTG757-916.0 g/dL04/14/2020 [facility] [address] [address]SXGALGOJ CBC W/ DIFF EDF71072FAL232-621.4 %04/14/2020 [facility] [address] [place] [address]OOTEJNDG CBC W/ DIFF CIK59356Bwsqikvm Ktztn176-0162 K/uL04/14/2020 [facility] [address] [address]ETJEVCXM CBC W/ DIFF NGW64350PHO75096-26.9 fL04/14/2020 [facility] [address] [place] [address]ANPHJLCR CBC W/ DIFF KWA27420Vmeqkfkrhvs %770-869.6 %04/14/2020 [facility] [address] [place] [address]GSCYRXKZ CBC W/ DIFF RBB49869Incjsibntcr %736-923.7 %04/14/2020 [facility] [address] [place] [address]XEAROMCU CBC W/ DIFF NND53513Sffpjobej %5905-56.0 %04/14/2020 [facility] [address] [place] [address]UGPTFRLF CBC W/ DIFF LPZ62600Xqgvitzlacf %713-80.2 %04/14/2020 [facility] [address] [place] [address]KMWRQIEL CBC W/ DIFF IJY31587Ciioskxcy%706-20.5 %04/14/2020 [facility] [address] [place] [address]LHNIJHJF CBC W/ DIFF GEO05527Tngwtctq Ydcjmqwpsg660-64738 /ul 04/14/2020 [facility] [address] [place] [address]EYQFVIMN CBC W/ DIFF VUO71173Ezzkbfvz Avjuelxgpz94663-39546 /ul 04/14/2020 [facility] [address] [place] [address]TMFXCGUS CBC W/ DIFF WWM61744Bkcgklak Sikvwktz264-4689 /ul 04/14/2020 [facility] [address] [address]RNTUDYRF CBC W/ DIFF MTY96333Ftcbneft Nuurcdfepm586-417 /ul 04/14/2020 [facility] [address] [address]SWIFPXFY CBC W/ DIFF KLU85835Dpndchqd Asddohvb165-995 /ul04/14/2020 [facility] [address] [address]XVRTARYSJ11205Jjcoeljpp91675-51.3 mg/dL04/14/2020 [facility] [address] [address]ANNC BMKY50940Nozu Rjuv8359-27.1 mg/dL10/18/2019 [facility] [address] [address]XXMEHQJX CBC W/ DIFF SVP58584GFC6431-161.0 K/ul10/18/2019 [facility] [address] [address]DZMGNVUM CBC W/ DIFF WGX91210WHC198-85.41 M/uL10/18/2019 [facility] [address] [address]IFCGPCIQ CBC W/ DIFF CWC60673Nrbrwvitwm821-643.1 g/dL10/18/2019 [facility] [address] [address]FOVSULOJ CBC W/ DIFF UNO11388Jeuyivcuvt8396-613.6 %10/18/2019 [facility] [address] [address]PSRAOBDK CBC W/ DIFF UGT06986POB603-307.1 fL10/18/2019 [facility] [address] [place] [address]KUGGAGJS CBC W/ DIFF FLG34623JOI510-076.5 pg10/18/2019 [facility] [address] [place], [place] [address]LWPKWKFD CBC W/ DIFF KTD76535PMZY239-542.1 g/dL10/18/2019 [facility] [address] [address]OOYCLFRV CBC W/ DIFF LLU99287CXF211-028.6 %10/18/2019 [facility] [address] [address]WVQIHNTJ CBC W/ DIFF GGS86609Rpugzevy Hhjlv435-8803 K/uL10/18/2019 [facility] [address] [place] [address]EKHUHNKR CBC W/ DIFF ESX09766WJV41272-79.8 fL10/18/2019 [facility] [address] [place] [address]VUJWOSQO CBC W/ DIFF SEH68133Rinzqrxgtke %770-871.7 %10/18/2019 [facility] [address] [place] [address]PVPWCJWV CBC W/ DIFF CHG33063Ptppgvcpbkg %736-922.0 %10/18/2019 [facility] [address] [place] [address]DLUQOKKU CBC W/ DIFF KJC22395Hcmextjxh %5905-54.9 %10/18/2019 [facility] [address] [place] [address]TPNAIBAA CBC W/ DIFF VJT77555Amqknvmprrr %713-80.7 %10/18/2019 [facility] [address] [place], [place] [address]KBZDTUYU CBC W/ DIFF NQV76430Kzmxglten%706-20.7 %10/18/2019 [facility] [address] [place], [place] [address]YLJLHTPN CBC W/ DIFF YVS85028Tuwhitqa Airfazchsx104-16090 /ul 10/18/2019 [facility] [address] [place] [address]YARTUUOJ CBC W/ DIFF LVO00413Jeksnkst Zoyesouanm09114-24617 /ul 10/18/2019 [facility] [address] [place], [place] [address]KQHSDKWY CBC W/ DIFF AZI59294Fbshfcrc Xdxlflrr603-4115 /ul 10/18/2019 [facility] [address] [place], [place] [address]BFAQTTHB CBC W/ DIFF KYC36714Jkluqzso Klyixocymx202-814 /ul 10/18/2019 [facility] [address] [place] [address]WKGWVTFL CBC W/ DIFF VDH80852Kytwqlji Btstugud151-237 /ul10/18/2019 [facility] [address], [place] [address]X2C-YHDDROEWWTCKCDS1400-6Qrjmx HGB B5T01958-31.0 %10/18/2019 [facility] [address] [place], [place] [address]O3W-POOSHPJKZCYYADQ3143-6xDU63873-4628 mg/dL10/18/2019 [facility] [address] [place], [place] [address]WVYH 14 (METABOLIC PANEL)06120Yxfssav3536-7914 mg/dL10/18/2019 [facility] [address] [place], [place] [address]LFMT 14 (METABOLIC PANEL)72603LAX0374-76 mg/dL10/18/2019 [facility] [address] [place], [place] [address]YDMZ 14 (METABOLIC PANEL)49461Kniihpxjaw7063-22.7 mg/dL10/18/2019 [facility] [address] [place], [place] [address]ZEIP 14 (METABOLIC PANEL)49220BFL/Creat Hctcv4969-037. [facility] [address] [place], [place] [address]EYCR 14 (METABOLIC PANEL)47330RWG Pjwdscaep31098-700 mL/min/1.73m2 10/18/2019 [facility] [address] [place], [place] [address]XZWB 14 (METABOLIC PANEL)72597QWZ Estimated for Americans [address] mL/min/1.18c92210/18/2019 [facility] [address] [place] [address]BSDG 14 (METABOLIC PANEL)33477Cxddei4917-4544 mmol/L10/18/2019 [facility] [address] [place], [place] [address]KGFP 14 (METABOLIC PANEL)06466Vemzldqdk1991-35.2 mmol/L10/18/2019 [facility] [address] [place], [place] [address]ENFT 14 (METABOLIC PANEL)34287Jvqpishd2276-2190 mmol/L10/18/2019 [facility] [address] [place], [place] [address]XRQD 14 (METABOLIC PANEL)50898Mcdyh HI54973-361 mmol/L10/18/2019 [facility] [address] [place], [place] [address]XKWB 14 (METABOLIC PANEL)93772Xiclecdvff Serum Locvycsyca43650-5663 mOsm/kg10/18/2019 [facility] [address] [place], [place] [address]SMMN 14 (METABOLIC PANEL)28457Njngm Yhv8646-23.2 mEq/L10/18/2019 [facility] [address] [place], [place] [address]PYEO 14 (METABOLIC PANEL)50160Nhwinol99267-05.4 g/dL10/18/2019 [facility] [address] [place], [place] [address]PTTO 14 (METABOLIC PANEL)57618Lsyom Kfnfhlt2695-34.0 g/dL10/18/2019 [facility] [address] [place], [place] [address]HHYE 14 (METABOLIC PANEL)76762Tzerjuvb0330-37.6 g/dL10/18/2019 [facility] [address] [place], [place] [address]KBRG 14 (METABOLIC PANEL)42096Czpljet/Globulin Ickwi3971-30.9 10/18/2019 [facility] [address] [place], [place] [address]ADYF 14 (METABOLIC PANEL)97302AEO AMQX2109-795.00 U/L10/18/2019 [facility] [address] [place], [place] [address]PNQR 14 (METABOLIC PANEL)40078IGSG/CDT3020-383 U/L10/18/[address] [facility] [address] [place] [address]SCET 14 (METABOLIC PANEL)79164KUYM/JRM7306-818 U/L10/18/2019 [facility] [address] [place] [address]MRET 14 (METABOLIC PANEL)15297Deanx Gnebdothy2886-34.6 mg/dL 10/18/2019 [facility] [address] [place] [address]MYDX 14 (METABOLIC PANEL)74233Kvgcnws02243-94.2 mg/dL10/18/2019 [facility] [address] [place], [place] [address]BQZT 14 (METABOLIC PANEL)23817Jbwcobguk Muaihwr21894-36.8 mg/dL 10/18/2019 [facility] [address] [place], [place] [address]MIM60438YDP98086-02.380 uIU/mL10/18/2019 [facility] [address] [place] [address] 25[address]WJSZVNHSWW58974Hdpmkyayhn04984-744 mg/dL10/18/2019 [facility] [address] [place], [place] [address]NIZEQEIE CBC W/ DIFF VZB48483UJH9118-15.0 K/ul07/06/2019 [facility] [address] [place], [place] [address]EPFJQWYF CBC W/ DIFF PVB90630LMY157-29.24 M/uL07/06/2019 [facility] [address] [address]YESTBZXP CBC W/ DIFF UJS92697Pfrbydiwwo828-096.8 g/dL07/06/2019 [facility] [address] [place] [address]TCGGISAS CBC W/ DIFF ODL68159Farfdbticq3832-500.8 %07/06/2019 [facility] [address] [address]YGUNWFRL CBC W/ DIFF TWL86963LAV929-494.4 fL07/06/2019 [facility] [address] [address]YFOHLZDJ CBC W/ DIFF NOR51586ZHU145-184.9 pg07/06/2019 [facility] [address] [address]VQLPIUYK CBC W/ DIFF ASJ67630TGIR144-699.0 g/dL07/06/2019 [facility] [address] [address]VFCWWXFJ CBC W/ DIFF XTK69246NDQ353-697.5 %07/06/2019 [facility] [address] [address]FAGBWHBI CBC W/ DIFF YST78491Ocorcdmf Depjg304-1745 K/uL07/06/2019 [facility] [address] [address]OEVWEXSQ CBC W/ DIFF PEK07833NLC63585-97.9 fL07/06/2019 [facility] [address] [address]DQDDQQDW CBC W/ DIFF YVK04474Dkoaddrcvgs %770-862.5 %07/06/2019 [facility] [address] [address]IXVVWJZX CBC W/ DIFF XUW30509Vxkljywgoqq %736-931.4 %07/06/2019 [facility] [address] [address]QCDDCCCL CBC W/ DIFF VMA20316Pdkjvzqox %5905-55.1 %07/06/2019 [facility] [address] [address]FJDKJYEU CBC W/ DIFF BEQ26335Lkcpkvidzpg %713-80.5 %07/06/2019 [facility] [address] [place] [address]FYEXIFWE CBC W/ DIFF UUX69140Dopgykewu%706-20.5 %07/06/2019 [facility] [address] [place] [address]DEOAOWFO CBC W/ DIFF JMS65898Jmvvrtib Ismffvtouk674-46601 /ul 07/06/2019 [facility] [address] [place] [address]EJQXACBG CBC W/ DIFF LBJ03331Rvmcbyyy Pogsvfbdlg44223-50831 /ul 07/06/2019 [facility] [address] [place] [address]VJFXGEXF CBC W/ DIFF NCS91752Nykzpclr Peahmbjs915-6363 /ul 07/06/2019 [facility] [address] [place] [address]HCPBISJG CBC W/ DIFF IDH10746Ljpqjnhl Qsrrejsrzx230-869 /ul 07/06/2019 [facility] [address] [place] [address]KIAYDGXR CBC W/ DIFF MUD92821Qrjhhdtp Ulihwhbi518-949 /ul07/06/2019 [facility] [address] [facility] [place] [address]WIKJDATAX55127Qlaktmtmi12848-79.3 mg/dL07/05/2019 [facility] [address] [facility] [place] [address]OTMY KODC86952Xcwd Tngw3349-87.0 mg/dL07/05/2019 [facility] [address] [place] [address]MBK89727NAG5153-405.9 pg/mL07/05/2019 [facility] [address] [place], [place] [address]KERI 14 (METABOLIC PANEL)30531Mwtzhvt4204-362 mg/dL07/05/2019 [facility] [address] [place] [address]HYUX 14 (METABOLIC PANEL)11261EOV5541-093 mg/dL07/05/2019 [facility] [address] [place] [address]SBTI 14 (METABOLIC PANEL)46990Sgudetblbl2139-49.7 mg/dL07/05/2019 [facility] [address] [place] [address]GBPU 14 (METABOLIC PANEL)96124OIB/Creat Tpecp0688-256. [facility] [address] [facility] [place] [address]YPMG 14 (METABOLIC PANEL)40249OYY Bggfvthgk27314-881 mL/min/1.73m2 07/05/2019 [facility] [address] [place], [place] [address]TYUC 14 (METABOLIC PANEL)07839KFV Estimated for Americans [address] mL/min/1.29z15207/05/2019 [facility] [address] [place], [place] [address]BAFQ 14 (METABOLIC PANEL)65859Mjhkgs7059-7547 mmol/L1 [facility] [address] [place], [place] [address]QWTY 14 (METABOLIC PANEL)78436Ofzkexnzj9658-17.8 mmol/L1 [facility] [address] [place], [place] [address]VIOE 14 (METABOLIC PANEL)49520Wtujiuvo3620-5552 mmol/L1 [facility] [address] [place], [place] [address]FRYG 14 (METABOLIC PANEL)92749Vdrua AW59816-149 mmol/L1 [facility] [address] [place] [address]SWCV 14 (METABOLIC PANEL)94153Odyki Zst8943-891.8 mEq/L1 [facility] [address] [place] [address] 17709RORT 14 (METABOLIC PANEL)39085Dkezbuywpn Serum Spyiirfuad89625-7423 mOsm/kg07/05/2019 [facility] [address] [place] [address]EHXR 14 (METABOLIC PANEL)08937Zdgfwkw71211-77.0 g/dL07/05/2019 [facility] [address] [place] [address]LZDH 14 (METABOLIC PANEL)78540Ufbki Jjjeidg8576-98.5 g/dL07/05/2019 [facility] [address] [place] [address]VHSP 14 (METABOLIC PANEL)00700Eccllgxy7941-91.5 g/dL07/05/2019 [facility] [address] [place] [address]37[address]YOWR 14 (METABOLIC PANEL)69642Mglcokj/Globulin Dpsab1864-44.1 07/05/2019 [facility] [address] [place] [address]SYLG 14 (METABOLIC PANEL)94212OKU FWCH2411-582.00 U/L1 [facility] [address] [place] [address]CKAB 14 (METABOLIC PANEL)25715WPKZ/SNI1386-067 U/L1 [facility] [address] [place] [address]COAW 14 (METABOLIC PANEL)27413ZFSO/NQH2975-480 U/L1 [facility] [address] [address]LLGH 14 (METABOLIC PANEL)24528Eqvxb Uznxrynsg0198-02.3 mg/dL 07/05/2019 [facility] [address] [address]OTSZ 14 (METABOLIC PANEL)14161Oejdixn96173-89.5 mg/dL07/05/2019 [facility] [address] [address]MIWC 14 (METABOLIC PANEL)15733Yrhujaesk Fyhmhwf92210-26.7 mg/dL 07/05/2019 [facility] [address] [address]PGZHQZOKDY08643Vzoyfeqadr0789-20.5 mg/dL07/05/2019 [facility] [address] [address]H1Z-LLNZEJAGXEWHUQM6400-4Nqlzs HGB Y3Q77251-07.6 %07/05/2019 [facility] [address] [address]N7E-XJHBKSWHFKBFCEC3392-9bSS94466-3486 mg/dL07/05/2019 [facility] [address] [address]RNQR H-780182BW01854-91.82 pg/mL07/05/2019 [facility] [address] [address]FFQI Q-680173PF82931-11.17 ng/dL07/05/2019 [facility] [address] [address]WRSWOMXUHGPYS31521Udrcaumljqhcz0717-6866 mg/dL06/22/2019 [facility] [address] [address]RLOFIIEHVMIEL78689KLBW33835-243 mg/dL06/22/2019 [facility] [address] [address]OTT - TXJT06861NPM5143-868 mg/dL06/22/2019 [facility] [address] [address]BRM - QCQP21455SVH02116-178 %06/22/2019 [facility] [address] [address]Kjkieqewcfvs28331Uthxuktfzlhw34697-78.42 umol/L06/22/2019 [facility] [address] [place], [place] [address]YUR58439EGJ75342-25.210 uIU/mL06/22/2019 [facility] [address] [facility] [address]PLVCIEPEIOK56039Whpqdcpnlmi7912-1127 mg/dL06/22/2019 [facility] [address] [place], [place] [address]JNLZCEJNHVBI (URINE)09801Bburaualmsdh78487-41.5 mg/dL06/22/2019 [facility] [address] [place], [place] [address]LCSXVSBBLYGI (URINE)66662Rtnolbnmcufm/Creatinine Fzdvu41392-02 MCG/DUYAPTD8206/22/2019 [facility] [address] [place], [place] [address]OBYQLGSYWZLJ (URINE)53740Awuif Zgsaekckaf4072-155.30 mg/dL 06/22/2019 [facility] [address] [place], [place] [address]VPYJAEL B-7612062Zxydzcq G973801-1568 pg/mL06/22/2019 [facility] [address] [place] [address]Ckcdjr YGR09911ZYD-Bavnby33223-4660 mg/dL06/22/2019 [facility] [address] [place], [place] [address]Xknwzm Molecular UTI TestRMUTIMolecular UTI TestCRITERIA NOT MET FOR MOLECULAR UTI RCOLETO4506/22/2019 [facility] [address] [place] [address]Onkifl UA to Molecular UTI Rqng72460ITvbbtro3531-2Vmwogywg mg/dL 06/22/2019 [facility] [address] [place] [address]Trywwp UA to Molecular UTI Pucd61630OUlwawelEnnzvtut mg/dL 06/22/2019 [facility] [address] [place], [place] [address]Hzaqcc UA to Molecular UTI Fjbx52479XQfsvqivbzAmmudyqq mg/dL 06/22/2019 [facility] [address] [place], [place] [address]Rpwyxi UA to Molecular UTI Inkq32166HMkpeifcpvzxaSxszytrs mg/dL 06/22/2019 [facility] [address] [place], [place] [address]Yucnzz UA to Molecular UTI Qvkc27015AGv8.00006/22/2019 [facility] [address] [place] [address]Vqezdo UA to Molecular UTI Oxih72518FDunhuClsmglvr mg/dL06/22/2019 [facility] [address] [place] [place] [address]Hwomxx UA to Molecular UTI Pdhc28428HOeahwkeVkatimbp mg/dL 06/22/2019 [facility] [address] [place] [place] [address]Oqvzwh UA to Molecular UTI Cqeh08084VHstvrhvEexguxpn46/20/2019 [facility] [address] [place] [place] [address]Dyzqlh UA to Molecular UTI Cnbq41358ITawvyuzzte042 WBCs/uL +++ WBCs/uL06/22/2019 [facility] [address] [place] [place] [address]Vuysos UA to Molecular UTI Wodp60914AGfdnawoYzucujvg-Vvhsxh 06/22/2019 [facility] [address] [place] [place] [address]Vmkivd UA to Molecular UTI Leqe25853HOqmbzpsl Gravity1.013 06/22/2019 [facility] [address] [place] [place] [address]Zbklyo UA to Molecular UTI Qzvf65987DAhwrtEnmqws29/20/2019 [facility] [address] [place] [address]Mjpjej UA to Molecular UTI Qepn20242VGfjjswqu AcidNegative mg/dL 06/22/2019 [facility] [address] [place] [place] [address]Tbfbrf UA to Molecular UTI Ubtm98458LZxp Blood Cell1 /HPF #/HPF 06/22/2019 [facility] [address] [place] [address]Aryuoq UA to Molecular UTI Nxdx20577SJymod Blood Cell4 /HPF #/HPF 06/22/2019 [facility] [address] [place] [address]Zmcgyg UA to Molecular UTI Dhjt82762KIHNWAOFW EPITHELIAL1 /HPF #/HPF06/22/2019 [facility] [address] [place] [address]Livzlo UA to Molecular UTI Tkki17618DPrqxvobiIyjfd graded/HPF 06/22/2019 [facility] [address] [place] [address]Uhefgl UA to Molecular UTI Hrzt57000NQyepqhAGGZ grades/LPF 06/22/2019 [facility] [address] [place] [address]MVXKTISQJO95742Ydfrhowfli97099-068 mg/dL04/30/2019 [facility] [address] [place] [address]TJ VDZJGN65049UA-qqwKTO61571-7659.0 pg/mL04/30/2019 [facility] [address] [place], [place] [address]DGFE 14 (METABOLIC PANEL)50911Rahbofe3678-154 mg/dL12/29/2018 [facility] [address] [place], [place] [address]XDYK 14 (METABOLIC PANEL)08081CAJ5810-578 mg/dL12/29/2018 [facility] [address] [place], [place] [address]YIKH 14 (METABOLIC PANEL)88408Gzzsilmmkh9231-78.8 mg/dL12/29/2018 [facility] [address] [place], [place] [address]KDSF 14 (METABOLIC PANEL)21874NKW/Creat Kuopg9618-107.6012/29/2018 [facility] [address] [place], [place] [address]UDIW 14 (METABOLIC PANEL)56196KMB Potiepiof02912-257 mL/min/1.73m2 12/29/2018 [facility] [address] [place] [address]EMEX 14 (METABOLIC PANEL)52551Mboqsa5297-7076 mmol/L12/29/2018 [facility] [address] [place] [address] 86177YBRO 14 (METABOLIC PANEL)36387ZEY Estimated for Americans [address] mL/min/1.98z84712/29/2018 [facility] [address] [place] [address]60[address]CRAO 14 (METABOLIC PANEL)03957Scekiulbc8159-21.9 mmol/L12/29/2018 [facility] [address] [place] [address] 37511JUHQ 14 (METABOLIC PANEL)92269Nimvoypu1216-9176 mmol/L12/29/2018 [facility] [address] [place], [place] [address]DNOC 14 (METABOLIC PANEL)01974Rwelz PB24283-897 mmol/L12/29/2018 [facility] [address] [place] [address] 757[address]IVMR 14 (METABOLIC PANEL)24038Gsrii Tux0860-090.9 mEq/L12/29/2018 [facility] [address] [place], [place] [address]GNHN 14 (METABOLIC PANEL)86544Jcqnxyoeba Serum Qgqojtzqpu38292-9145 mOsm/kg12/29/2018 [facility] [address] [place], [place] [address]UOSH 14 (METABOLIC PANEL)84852Lrodksx99036-28.6 g/dL12/29/2018 [facility] [address] [place] [address]MWEU 14 (METABOLIC PANEL)69228Zjnkb Zqmahje6536-94.1 g/dL12/29/2018 [facility] [address] [place] [address]PAAV 14 (METABOLIC PANEL)11707Nztuoson0134-41.5 g/dL12/29/2018 [facility] [address] [place] [address]KRCV 14 (METABOLIC PANEL)95722Tlhfirq/Globulin Tovrj9865-34.0 12/29/2018 [facility] [address], [place] [address]KCZY 14 (METABOLIC PANEL)74239YHH REVA2050-359.00 U/L12/29/2018 [facility] [address] [facility] [place], [place] [address]YHGE 14 (METABOLIC PANEL)70324OEDL/ECA2075-783 U/L12/29/2018 [facility] [address] [address]KIGL 14 (METABOLIC PANEL)11710APMH/JNW7208-451 U/L12/29/2018 [facility] [address] [address]CCRN 14 (METABOLIC PANEL)56475Xdyyo Tdjopctjh6171-96.4 mg/dL 12/29/2018 [facility] [address] [facility] [place] [address]VVUZ 14 (METABOLIC PANEL)30746Pwadtxs58718-61.9 mg/dL12/29/2018 [facility] [address] [place] [address]GWQM 14 (METABOLIC PANEL)09112Slizznurf Ibwqihv93962-69.4 mg/dL 12/29/2018 [facility] [address] [address]FXHU E-163967IV25733-63.19 ng/dL12/29/2018 [facility] [address] [facility] [place] [address]MCFI UVST77657Smvt Fcao4686-59.4 mg/dL12/29/2018 [facility] [address] [facility] [place] [address]T1I-FZMFJJSCKVPENFB3328-6Rwsxm HGB K1F47530-78.8 %12/29/2018 [facility] [address] [place], [place] [address]P2J-FNEVLLISXJVPNQR9174-9rQK77876-0712 mg/dL12/29/2018 [facility] [address] [place], [place] [address]LTRFKPHICU41183Wtnlzfomes0398-54.3 mg/dL09/08/2018 [facility] [address] [facility] [place] [address]YFPXZHKMN79095Okthduqsn47503-57.2 mg/dL09/08/2018 [facility] [address] [address]XGAY 14 (METABOLIC PANEL)52453Rwicufv3138-779 mg/dL09/08/2018 [facility] [address] [place], [place] [address]UWVR 14 (METABOLIC PANEL)62118PZU7986-78 mg/dL09/08/2018 [facility] [address] [place], [place] [address]SRZG 14 (METABOLIC PANEL)06929Bwgvulccbn6967-93.7 mg/dL09/08/2018 [facility] [address] [facility] [place] [address]MRFW 14 (METABOLIC PANEL)00527GTM/Creat Ekwyg2485-841. [facility] [address] [place], [place] [address]QCDK 14 (METABOLIC PANEL)13475ABC Rwywapgsm57073-6030 mL/min/1.73m2 09/08/2018 [facility] [address] [place], [place] [address]FXJI 14 (METABOLIC PANEL)08758SOL Estimated for Americans [address] mL/min/1.10r50109/08/2018 [facility] [address] [facility] [place], [place] [address]IHGZ 14 (METABOLIC PANEL)36684Jnsyyx8900-7440 mmol/L111/09/2017 [facility] [address] [place], [place] [address]PGBH 14 (METABOLIC PANEL)12853Zfjergkod1338-57.0 mmol/L111/09/2017 [facility] [address] [facility] [place], [place] [address]VAWS 14 (METABOLIC PANEL)72278Oaulskur8555-8885 mmol/L111/09/2017 [facility] [address] [place], [place] [address]TIND 14 (METABOLIC PANEL)53859Hjxxn SK71410-715 mmol/L111/09/2017 [facility] [address] [place], [place] [address]LZCJ 14 (METABOLIC PANEL)22175Ruhnvaajgv Serum Miywfvtxrf49272-9669 mOsm/kg09/08/2018 [facility] [address] [place], [place] [address]HERX 14 (METABOLIC PANEL)99135Miona Jyb7579-150.0 mEq/L12/04/2018 [facility] [address] [place] [address]TBIT 14 (METABOLIC PANEL)72698Ayihgfo31244-82.7 g/dL09/08/2018 [facility] [address] [address]TXUZ 14 (METABOLIC PANEL)06134Ibqqq Qeseokd5656-64.0 g/dL09/08/2018 [facility] [address] [facility] [place] [address]KNVY 14 (METABOLIC PANEL)24432Nurcvsha3973-46.3 g/dL09/08/2018 [facility] [address] [facility] [place] [address]NTLF 14 (METABOLIC PANEL)85070Ethnbdv/Globulin Rkmhj4883-51.1 09/08/2018 [facility] [address] [facility] [address]LQCY 14 (METABOLIC PANEL)26925PDK QQKI0192-876.00 U/L111/09/2017 [facility] [address] [place], [place] [address]OSGI 14 (METABOLIC PANEL)60118MXRM/EAH3698-533 U/L111/09/2017 [facility] [address] [facility] [place] [address]OQBZ 14 (METABOLIC PANEL)54137LRWP/JEI5505-044 U/L111/09/2017 [facility] [address] [facility] [place] [address]IVJF 14 (METABOLIC PANEL)01450Uihgo Zpvkhsuuk8816-90.5 mg/dL 09/08/2018 [facility] [address] [facility] [place] [address]QNFQ 14 (METABOLIC PANEL)18048Oufiotb06619-34.3 mg/dL09/08/2018 [facility] [address] [facility] [place] [address]WCVW 14 (METABOLIC PANEL)66820Ifnyesuqt Vrfphmi61519-07.7 mg/dL 09/08/2018 [facility] [address] [place], [place] [address]B5P-BWESKEHWJQXVGQF6293-2Tuooo HGB T7E11053-24.7 %09/08/2018 [facility] [address] [facility] [place] [address]R7X-BRNDPAEDYQCZCNF0451-6xGP98213-9442 mg/dL09/08/2018 [facility] [address] [place], [place] [address]UKDBQSN H99109Ncbfxem U03928-451.8 ng/mL09/08/2018 [facility] [address] [address]WSDAMARD CBC W/ DIFF BPY66253HXS3117-88.0 K/ul09/08/2018 [facility] [address] 08[address]SKHHWIFD CBC W/ DIFF YLK00924NEH534-05.31 M/uL09/08/2018 [facility] [address] [address]KEATPKPU CBC W/ DIFF RZW49029Upuzrxyvzt813-063.0 g/dL09/08/2018 [facility] [address] 114[address]XTAKOQEP CBC W/ DIFF IXR89021Ducneqzmsw0849-730.8 %09/08/2018 [facility] [address] 34[address]SQJUKAVU CBC W/ DIFF SEU27752LFZ842-197.7 fL09/08/2018 [facility] [address] 37476RNOTHMOF CBC W/ DIFF PGC93155DXD464-513.9 pg09/08/2018 [facility] [address] 509[address]BKTOXKAZ CBC W/ DIFF AYF20988YCBF740-623.8 g/dL09/08/2018 [facility] [address] [address]JZLPVYBL CBC W/ DIFF TMV83185ZTP058-375.6 %09/08/2018 [facility] [address] [address]YOLBMTPB CBC W/ DIFF OTO82505Cbpgkohs Kfcvz276-1335 K/uL09/08/2018 [facility] [address] 840[address]FWMVHSTP CBC W/ DIFF YTA13057UNV47912-08.2 fL09/08/2018 [facility] [address] 39586KBQJMDGR CBC W/ DIFF YOY48328Akituzmuuow %770-871.7 %09/08/2018 [facility] [address] 98007FTUTTOPM CBC W/ DIFF SYJ48898Gdymriyllov %736-923.0 %09/08/2018 [facility] [address] [address]IHVXICGR CBC W/ DIFF HLI93272Ebuvcwehf %5905-54.0 %09/08/2018 [facility] [address] [address]LNEMWQVV CBC W/ DIFF ZWU11448Iliyjlykigb %713-81.2 %09/08/2018 [facility] [address] [address]ZNLLIFSF CBC W/ DIFF LAN14276Hrfboodds%706-20.1 %09/08/2018 [facility] [address] [address]UZXGMZDS CBC W/ DIFF USB43473Fwqqvmoq Ldlyewojyp914-41439 /ul 09/08/2018 [facility] [address] [address]CFWITWEA CBC W/ DIFF ZOY46530Cljdlxqc Nalokughgd98594-22614 /ul 09/08/2018 [facility] [address] [address]VUJEDPTK CBC W/ DIFF HHB53260Xwupwext Speuylqp434-8858 /ul 09/08/2018 [facility] [address] [address]RVJVURKO CBC W/ DIFF HPI14183Rcgynzlv Zyhgbpeylf036-945 /ul 09/08/2018 [facility] [address] [address]KYMNQMIS CBC W/ DIFF CML52601Gniqujvn Klhlxblh923-03 /ul09/08/2018 [facility] [address] [address]NESITQTHKJ34013Nvgeqcjjtk24990-529 mg/dL06/02/2018 [facility] [address] [address]OW DRAXIF76278FY-bwuAXR49147-2<50 pg/mL06/02/2018 [facility] [address] 07270FPHRCXZTYQWC (URINE)84179Uvvxnpfzixse60463-21.2 mg/dL06/02/2018 [facility] [address] [address]KXWOTDBIWLTB (URINE)46181Uwhyscekjczh/Creatinine Yowxt22348-32 MCG/BMEEZHW7506/02/2018 [facility] [address] [place] [address]FHAUBJQCQOZG (URINE)12246Vkvmk Eikybvvrxm0855-7227.00 mg/dL 06/02/2018 [facility] [address] [place] [address]Xuelus IkswFJBWIVerjppszqtc33991-439.0 %06/02/2018 [facility] [address] 57[address]Uduaxt DhlhJDZHOEcuqrrncgbw77873-170.0 %06/02/2018 [facility] [address] 68[address]Mjqwix UybdQAFNOFifijfkeb76533-29.0 %06/02/2018 [facility] [address] 87[address]Gjraxf KmltPLTKKEwspcatxmyg97094-92.0 %06/02/2018 [facility] [address],[place]ERRA [address]Iknsqw ZafqBOYRNPwmhojojx47069-17.0 %06/02/2018 [facility] [address] 294[address]Nngkep DiffMDIFFAbsolute Acka61601-08727 /ul06/02/2018 [facility] [address] 19532Djldrt DiffMDIFFAbsolute Hlvuv09180-28766 /ul06/02/2018 [facility] [address] 927[address]Ojgxgl DiffMDIFFAbsolute Rkew19061-1886 /ul06/02/2018 [facility] [address] 838[address]Vemguf DiffMDIFFPlatelet Qlvdcsgb5747-8Tbqkbj44/31/2018 [facility] [address] 44280Rnaxqv DiffMDIFFAbsolute Ntb24579-8853 /ul06/02/2018 [facility] [address] [address]Jcfjce CrvsUTVOEGyhogkbadhd3744-78+06/02/2018 [facility] [address] 187[address]Oswfun VtpzMDPKNUjkuoeovarqqby465-05+06/02/2018 [facility] [address] 18489Ozlvfq DiffMDIFFAbsolute Ntsi42982-7766 /ul06/02/2018 [facility] [address] [address]WQRC 14 (METABOLIC PANEL)50846Dblhzgk9035-436 mg/dL06/02/2018 [facility] [address] [address]UTRT 14 (METABOLIC PANEL)65876YYC7946-730 mg/dL06/02/2018 [facility] [address] [address]ZXNS 14 (METABOLIC PANEL)40364Xjldhmvkqd4801-40.7 mg/dL06/02/2018 [facility] [address] [place], [place] [address]BQGG 14 (METABOLIC PANEL)73425QHC/Creat Ajcoa6515-277.6006/02/2018 [facility] [address] [place], [place] [address]RZJO 14 (METABOLIC PANEL)44111ZTK Dngxxkyzl40201-249 ML/MIN 06/02/2018 [facility] [address] [place], [place] [address]QJTS 14 (METABOLIC PANEL)95269IGU Estimated for Americans [address] ML/MIN06/02/2018 [facility] [address] [place], [place] [address]PSWD 14 (METABOLIC PANEL)81767Wwhzcu1571-9496 mmol/L06/02/2018 [facility] [address] [place], [place] [address]AKZZ 14 (METABOLIC PANEL)95326Focfticpn1449-95.0 mmol/L06/02/2018 [facility] [address] [place] [address]IOCO 14 (METABOLIC PANEL)36814Xlrxldyc8796-3059 mmol/L06/02/2018 [facility] [address] [place], [place] [address]LEVT 14 (METABOLIC PANEL)04626Ijnkg UD79010-844 mmol/L06/02/2018 [facility] [address] [place], [place] [address]SZBT 14 (METABOLIC PANEL)83054Ylcfa Clu9253-781.0 mEq/L06/02/2018 [facility] [address] [place], [place] [address]BMDS 14 (METABOLIC PANEL)40074Yiabmoiyim Serum Bbbxkorrje80860-8581 mOsm/kg06/02/2018 [facility] [address] [place], [place] [address]AOPR 14 (METABOLIC PANEL)03695Kguxjnf38201-04.2 g/dL06/02/2018 [facility] [address] [place], [place] [address]VYBV 14 (METABOLIC PANEL)96773Kwhqq Aotuiof5277-56.6 g/dL06/02/2018 [facility] [address] [place], [place] [address]MDRS 14 (METABOLIC PANEL)84727Qkxotssa5788-81.4 g/dL06/02/2018 [facility] [address] [place], [place] [address]PTTO 14 (METABOLIC PANEL)01368Kxnztkm/Globulin Ejgqp0371-44.2 06/02/2018 [facility] [address] [place] [address]NLPQ 14 (METABOLIC PANEL)85160TSR AYFW9182-0339.00 U/L06/02/2018 [facility] [address] [place] [address]GAIU 14 (METABOLIC PANEL)94587VNED/SWL1357-472 U/L06/02/2018 [facility] [address] [place] [address]NVVD 14 (METABOLIC PANEL)45815PKHG/JNB8291-728 U/L06/02/2018 [facility] [address] [place] [address]FSLA 14 (METABOLIC PANEL)74479Skprl Alejyynlj8131-81.7 mg/dL 06/02/2018 [facility] [address] [place] [address]BKZN 14 (METABOLIC PANEL)64649Bgqouls79942-57.5 mg/dL06/02/2018 [facility] [address] [place] [address]MGWC 14 (METABOLIC PANEL)39364Qkzzlyzuc Rookyfv81481-50.5 mg/dL 06/02/2018 [facility] [address] [place], [place] [address]VOZOUSI B-4549151Ubeiesf P429021-54596 pg/mL06/02/2018 [facility] [address] [place] [address]JQPPHGQNNU33315Malzdfeeuv4560-51.4 mg/dL06/02/2018 [facility] [address] [facility] [place] [address]CIJ88588WOR38131-47.150 uIU/mL06/02/2018 [facility] [address] [place] [address]UFMGRBMZS61953Ysymvthyg43549-40.0 mg/dL06/02/2018 [facility] [address] [place] [address]E4V-UNUGDTMNSWRGLFA3922-0Tpbas HGB F9J02740-76.0 %06/02/2018 [facility] [address] [place] [address]T9R-IVIWTIVJCROHEWV5926-3wCE04139-3008 mg/dL06/02/2018 [facility] [address] [facility] [place] [address]SFV - QINV65222DFF6519-872 mg/dL06/02/2018 [facility] [address] [address]WND - JHHW50367OND51030-283 %06/02/2018 [facility] [address] 769[address]RVWJEQRO CBC W/ DIFF TXW69563DMM5073-115.8 K/ul06/02/2018 [facility] [address] 27[address]NVRLFNPE CBC W/ DIFF TNA68118IUD717-66.24 M/uL06/02/2018 [facility] [address] [address]YEXSEAAQ CBC W/ DIFF KDA09792Wlfgfitmjc351-260.8 g/dL06/02/2018 [facility] [address] 139[address]JVBVURFL CBC W/ DIFF XNG99077Ljhsxlfecu7815-464.2 %06/02/2018 [facility] [address] [address]YEOYYITH CBC W/ DIFF WRJ50799UWL777-432.8 fL06/02/2018 [facility] [address] 501[address]BXUXIFGX CBC W/ DIFF THV80053QRL287-092.9 pg06/02/2018 [facility] [address] [address]HOTTEYKU CBC W/ DIFF WLZ99680JPCY205-362.8 g/dL06/02/2018 [facility] [address] 629[address]WKNPBQXV CBC W/ DIFF IDE74113TMU077-732.1 %06/02/2018 [facility] [address] [address]XXIDORTF CBC W/ DIFF DMN53007Kyelzqzo Hfzlc196-9177 K/uL06/02/2018 [facility] [address] [address]BWUREJNM CBC W/ DIFF LFV23407VOW56335-38.6 fL06/02/2018 [facility] [address] 58265NUERPQNEJMIUJ29493Leqmtquyootit6482-5735 mg/dL06/02/2018 [facility] [address] 36956GPDANNNNPCLOP56729KBIN22910-320 mg/dL06/02/2018 [facility] [address] [address]Bddetu LAT25287QAE-Mjfent42195-3495 mg/dL06/02/2018 [facility] [address] 84155ZVAGYDYKDGI23532Iblypczzeix4446-0262 mg/dL06/02/2018 [facility] [address] 284[address]OHSHNW96162Jksyru5290-0>20 ng/mL06/02/2018 [facility] [address] [place] [address] Procedures Procedure Codes Date Patient Health Questionnaire [...] = Negative for depression- NO PLAN NEEDEDCPT-4: MZYQPmrsdyn85/07/2024 FLUCELVAX PFS VAC NO PRSV 0.5 ML IMCPT-4: 4852668dmin flu virus vaccine CPT-4: B021530atient Health QuestionnaireCPT-4: DPHQ06/24/2023 ElectrocardiogramCPT-4: 5730432Electrocardiogram Finding/Abnormal: _Sinus Rhythm Low voltage in precordial leads. - Nonspecific T-abnormality.CPT-4: 02632Ooiwuem18/22/2023atient Health Questionnaire Little interest or pleasure in [...] Score:/0-4 =Negative for depression- NO PLAN NEEDEDCPT-4: PSIZQbruwsa77/22/2023 Functional Assessment ADLs - Patient needs direct assistance, cuing, or supervision, to perform the following safely:/*Noassistance, cuing, or supervision needed, IADLs - Patient needs direct assistance, cuing, or supervision, to perform the following safely:/taking medications, IADLs - Patient needs direct assistance,cuing, or supervision, to perform the following safely:/transportationCPT-4: DFAUnknown 06/24/2023Urinalysis, dip stickCPT-4: 5562140lucose Blood TestCPT-4: 5092769Urinalysis, dip stick Leukocytes:/Moderate, Nitrite:/Negative, Urobilinogen:/0.2, Protein:/Negative, Ph:/5.0, Blood:/Negative, Specific [place]:/1.005, Ketone:/Negative, Bilirubin:/Negative, Glucose:/NegativeCPT-4: 91616Tsccjnn45/02/2023Semmes Fany AssessmentCPT-4: DSWA01/27/2023Fall Risk AssessmentCPT-4: DFRA 01/27/2023HypertensionCPT-4: HTN01/27/2023Semmes Fany Assessment Sensation/07/12CPT-4: IBFHFdjyfmd00/27/2023Fall Risk Assessment Any problems with balance or walking?/No, Has there been a fall with injury in the last year?/No, Two or more falls in the past year?/No, Plan:/Monitor gait and balance PRN, no current action neededCPT-4: SXOUFgfhnlp66/27/2023 Hypertension Hypertension Follow Up Plan/Lifestyle modification weight reduction, Hypertension Follow Up Plan/Lifestyle modification including reduce salt intake CPT-4: QZUXenvbuc64/27/2023atient General Health Assessemnt Compared to one year ago, how would you rate your health in general?/the same CPT-4: RMTZDiezgts35/24/2023atient Health QuestionnaireCPT-4: DPHQ11/23/2022 Patient Health Questionnaire Little interest or pleasure [...] Score:/0-4 =Negative for depression- NO PLAN NEEDEDCPT-4: KYHJEqelkuk39/21/2023 Pain ScreeningCPT-4: PAS2022Tobacco Assessment/ScreeningCPT-4: TCA 2022Tobacco Assessment/Screening Tobacco Use/Never used tobaccoCPT-4: RJDMpefdlz31/18/2023ain Screening Do you suffer from any painful conditions?/Yes (plan required)/Pain currently adequately controlledCPT-4: YCBDsstdto91/18/2023lucose Blood TestCPT-4: 39931 2022HypertensionCPT-4: HTN08/17/2022dmin pneumococ vacCPT-4: G0009 08/17/2022NEUMOCOCCAL VACC 23 JUNO IMCPT-4: 982058110/17/2021Hypertension Hypertension Follow Up Plan/Lifestyle modification weight reduction, Hypertension Follow Up Plan/Lifestyle modification including reduce salt intake CPT-4: KKYBuftgep76/15/2022atient General Health Assessemnt Compared to one year ago, how would you rate your health in general?/the same CPT-4: GGZDEntwijp99/09/2022Glucose Blood TestCPT-4: 1704214emmes Fany AssessmentCPT-4: DSWA04/19/2022atient Health QuestionnaireCPT-4: DPHQ 04/19/2022atient Health Questionnaire Little interest or pleasure in [...] = Negative for depression- NO PLAN NEEDEDCPT-4: AZHYLdnqghv81/18/2022 Perry Fany Assessment Sensation/06/12CPT-4: HXWRWstgchj58/18/2022nnual Wellness Visit (Subsequent Visit)CPT-4: V119012/nnual Wellness Visit (Subsequent Visit) Tobacco Assessment/Never used [...] confirmed with pt and/or caregiver. Copy given.CPT-4: U9616Ewznwnl36/12/2022 Patient General Health Assessemnt Compared to one year ago, how would you rate your health in general?/the same CPT-4: PPGICrhtdll91/07/2022atient Health QuestionnaireCPT-4: DPHQ01 Patient Health Questionnaire Little interest or pleasure [...] = Negative for depression- NO PLAN NEEDEDCPT-4: RHPQOjbzymo91/05/2022 Maltreatment Assessment 1. Have you relied on [...] No plan required, re-evaluate annually or prnCPT-4: ZDGYahtzwe40/05/2022Functional Assessment ADLs - Patient needs direct assistance, cuing, or supervision, to perform the following safely:/*Noassistance, cuing, or supervision needed, IADLs - Patient needs direct assistance, cuing, or supervision, to perform the following safely:/*No assistance, cuing, or supervision neededCPT-4: RAQBbzbwhc71/05/2022 Frailty ScreeningCPT-4: D05/20/2021Frailty Screening Are you fatigued?/No (0), Can you walk one block?/Yes (0), Can you walk up one flight of stairs?/Yes (0), Do you have more than 5 chronic illnesses?/Yes (1), Have you lost more than 5% body weight in6 months?/No (0), Frailty Point Total:/Score 1=pre frailCPT-4: BTOKprglum08/18/2021HypertensionCPT-4: HTN 04/01/2021Functional Assessment ADLs - Patient needs direct assistance, [...] Up Plan/Lifestyle modification including reduce salt intakeCPT-4: RKFAlzxigc31/30/2021Tobacco Assessment/ScreeningCPT-4: TCA03/13/2021atient Health QuestionnaireCPT-4: DPHQ03/13/2021atient Health Questionnaire Little interest or pleasure in [...] DPHQUnknown 03/13/2021Tobacco Assessment/Screening Tobacco Use/Never used tobaccoCPT-4: TPWGjaovrj23/11/2021Mini Mental State Exam CPT-4: DMMA01/29/2021Mini Mental Status Exam Where are you?/What is [...] sided figure design/1 point, Total Points Accrued:CPT-4: WJMRCjgmmux35/29/2021 Annual Wellness Visit (Subsequent Visit)CPT-4: [id number] Care PlanningCPT-4: VACP01/13/2021[facility] [id number] CPT-4: DFRA01/13/2021nnual Wellness Visit (Subsequent Visit) Tobacco [...] Assessment/Fall with injury in the past year?/NoCPT-4: Q8708Ikojdwi 01/13/2021dvance Care Planning Time spent discussing advance directives and/or completing forms with the patient or caregiver:/16 minutes (minimum) - 30 minutes, Advance Directive Status:/Reviewed and updated as pertinent, see Hx tabCPT-4: VACPUnknown 01/13/2021Fall Risk Assessment Two or more falls in the past year?/No, Has there been a fall with injury in the last year?/No, Plan:/Monitor gait and balance PRN, no current action needed [facility]: [phone] CPT-4: ODLJRlracts65/13/2021Functional Assessment ADLs - Patient needs direct assistance, cuing, or supervision, to perform the following safely:/*Noassistance, cuing, or supervision needed, IADLs - Patient needs direct assistance, cuing, or supervision, to perform the following safely:/shopping, IADLs - Patient needs direct assistance, cuing, orsupervision, to perform the following safely:/transportationCPT-4: RDMEnohvzh01/13/2021 Patient health Questionnaire-2 Over the past two weeks, have you felt little interest or pleasure in doing things?/(0) Not at all,Over the past two weeks, have you felt down, depressed, or hopeless?/(0) Not at all, Score:/0-2= Negative for depression (Plan NOT REQUIRED)CPT-4: OMOT2Nkldpjj01/13/2021emmes Fany AssessmentCPT-4: DSWA 12/17/2020emmes Fany Assessment CPT-4: XXAZJnqzuph09/17/2021Glucose Blood TestCPT-4: 94977 10/29/2020Urinalysis, dip stickCPT-4: 949383309/24/2020Glucose Blood TestCPT-4: 708108011/25/2019Urinalysis, dip stick Leukocytes:/Small, Nitrite:/Negative, Urobilinogen:/0.2, Protein:/Negative, Ph:/5.0, Blood:/Non-Hemolyzed:, Blood:/Trace, Specific [place]:/1.020, Ketone:/Negative, Bilirubin:/Negative, Glucose:/NegativeCPT-4: 75267Mgougnx 09/24/2020Patient Health QuestionnaireCPT-4: DPH08/19/2020Patient Health Questionnaire Little interest or pleasure in [...] Score:/0-4= Negative for depression- NO PLAN NEEDEDCPT-4: AEMNGahlkka79/17/2020 Functional Assessment ADLs - Patient needs direct assistance, cuing, or supervision, to perform the following safely:/*Noassistance, cuing, or supervision needed, IADLs - Patient needs direct assistance, cuing, or supervision, to perform the following safely:/transportationCPT-4: WUDCapievf66/17/2020Maltreatment Assessment 1. Have you relied on people [...] No plan required, re-evaluate annually or prnCPT-4: LFRHwebbhv40/06/2020Glucose Blood TestCPT-4: 8033431FLUCELVAX PFS VAC NO PRSV 0.5 ML IMCPT-4: 67837 06/11/2020Admin flu virus vaccineCPT-4: Q717094ElectrocardiogramCPT-4: 2816756Electrocardiogram Finding/NormalCPT-4: 38830Njbkghs64/12/2020Breast Cancer Screening Screening for Breast Cancer/Screened:/No/Mammogram not clinically indicated due to < 50 years ofageCPT-4: BEOCvahygu48/16/2020Colorectal Screening Screening for Colorectal Cancer/Screened:/No/CRC screening not clinically indicated due to < 50 years of ageCPT-4: PLTTnhylam42/16/2020Tobacco Assessment/ScreeningCPT-4: TCA01/01/2020Fall Risk AssessmentSNOMED CT: [id number] CPT-4: DF01/01/2020Functional AssessmentCPT-4: DFA01/01/2020Tobacco Assessment/Screening Tobacco Use/Never used tobaccoCPT-4: BAPBnrpmme82/31/2020Fall Risk Assessment Two or more falls in the past year?/No, Has there been a fall with injury in the last year?/No, Plan:/Monitor gait and balance PRN, no current action needed SNOMED CT: [id number] CPT-4: AGVDYkhnlah66/31/2020Functional Assessment ADLs - Patient needs direct assistance, cuing, or supervision, to perform the following safely:/*Noassistance, cuing, or supervision needed, IADLs - Patient needs direct assistance, cuing, or supervision, to perform the following safely:/managing finances, IADLs - Patient needs direct assistance, cuing, or supervision, to perform the following safely:/taking medications, IADLs - Patient needs direct assistance, cuing, or supervision, to perform the following safely:/transportationCPT-4: YHJMgrcxmz06/31/2020Biancames Fany Assessment CPT-4: DSWA11/28/2019Patient Health QuestionnaireCPT-4: DPHQ11/28/2019Patient Health Questionnaire Little interest or pleasure in [...] NO PLAN NEEDED, Plan:/*Active diagnosis of depressionCPT-4: RGMJEyjiqnh08/26/2020Semmes Fany Assessment SensationCPT-4: BDFMEcuecwm57/26/2020Semmes Fany AssessmentCPT-4: DSWA 10/17/2019HypertensionCPT-4: HTN10/17/2019Hypertension Hypertension Follow Up Plan/Lifestyle modification weight reduction, Hypertension Follow Up Plan/Repeat BP measurement within one month, Hypertension Follow Up Plan/Lifestyle modification including reduce salt intakeCPT-4: WFHYztrpbs45/15/2020Semmes Fany AssessmentCPT-4: DS10/17/2019Glucose Blood TestCPT-4: 0077552[id number] CPT-4: DFRA09/19/2019Functional AssessmentCPT-4: DFA111/20/2018Functional Assessment ADLs - [...] and balance PRN, no current action needed [facility] CT: [id number] CPT-4: GKUYLudzlgk67/18/2019Urinalysis, dip stickCPT-4: 2853402 Urinalysis, dip stick Leukocytes:/Moderate, Nitrite:/Negative, Urobilinogen:/Normal, Protein:/Negative, Ph:/5.0, Blood:/Negative, Specific [place]:/1.015, Ketone:/Negative, Bilirubin:/Negative, Glucose:/NegativeCPT-4: 12263Eqjyvju 06/21/2019Tobacco Assessment/ScreeningCPT-4: TCA05/24/2019Patient Health QuestionnaireCPT-4: DPHQ05/24/2019PNEUMOCOCCAL VACC 13 JUNO IMCPT-4: 69210 05/24/2019Patient Health Questionnaire Little interest or pleasure in [...] Depression/Patient negative for depression. No plan indicatedCPT-4: YHLYUvbvskf42/22/2019Tobacco Assessment/Screening Tobacco Use/Never used tobacco, Plan/No cessation intervention due to other medical reason N/ACPT-4: YHTCyacxrx04/22/2019Admin pneumococ vacCPT-4: G0009 05/24/2019AHA/REBECCA Classification AssessmentCPT-4: DAHA04/25/2019Controlled Substance ReportCPT-4: CTRSU04/25/2019TD VACCINE >7 y/o IMCPT-4: 3518480 AHA/REBECCA Classification Assessment Assign to:/Candida - Lab Template, Assign to:, AHA/A: At risk, but without structural heart disease., NYHA/I: AsymptomaticCPT-4: XJMFHygybbg27/24/2019 Immunization AdministrationCPT-4: 8018554Controlled Substance Report Assign to:, Controlled Substance Report Range:/Past 24 months, Provider Attestation:/I attest that I reviewed the state PDMP report and find no clinical issues., Formatting Model/CDA Sections/CCDACPT-4: RZLVCChcrwpo75 Urinalysis, dip stickCPT-4: 2096400Urinalysis, dip stickCPT-4: 28316 03/28/2019Urinalysis, dip stick Leukocytes:/Moderate, Nitrite:/Negative, Urobilinogen:/Normal, Protein:/Negative, Ph:/5.0, Blood:/Negative, Specific [place]:/1.030, Ketone:/5 points, Bilirubin:/Small, Glucose:/10/12CPT-4: 11261Smaftgb51Glucose Blood TestCPT-4: 8826679Electrocardiogram Finding/Sinus BradycardiaCPT-4: 01128Ckhbepm21Glucose Blood TestCPT-4: 7125437Semmes Fany Assessment Sensation/04/11CPT-4: XMADMacttrh18/10/2018Functional Assessment Activities of Daily Living/Bathing/0 - No [...] time, Independent Activities of Daily Living/IADLTotal:/4CPT- 4: OWIIzexlme81/10/2018Fall Risk Assessment Timed: Up and Go/16 seconds - Increased Risk of Falls, Two or more falls in the past year?/No, Has there been a fall with injury in the last year?/Yes (High Risk)SNOMED CT: [id number] CPT-4: VFZOLufrwmh59/10/2018Glucose Blood TestCPT-4: 3000965Urinalysis, dip stick Leukocytes:/Moderate, Nitrite:/Negative, Urobilinogen:/Normal, Protein:/Trace, Ph:/6.0, Blood:/Negative, Specific [place]:/1.010, Ketone:/Negative, Bilirubin:/Small, Glucose:/NegativeCPT-4: 06075Erajmsc48/29/2018 Electrocardiogram Finding/Abnormal: _CPT-4: 95625Limfcei60/29/8522Q4D-HbwbvwxlfvngomvLCZ-6: 18200 OerrgvqS2J-BkycuzqkumnrmaeXDR-7: 28304AhcetakE5Z-LribymzxojblfsoDNR-6: 45583 IbqjbcbK1C-ZeesmxbbklqgygaIET-2: 94461JclarumY7D-XwkpvmrwapfajstOOR-2: 27221 MnwugckM1R-SnhvlovczduxndkIYT-2: 03621EfuuvbjG2P-FkqeeiscwtmwirlUVV-1: 45072 CmmdscvD3V-HevxyrlgwvyvnjoBCX-8: 40416ZabooqhY1X-XkpuqkmclntmbyeSKE-8: 47353 EtcdjmtW7N-OmqcyfxazflouvbCJR-2: 18632FszfuweM0M-TxuogejfyplbeivRLW-6: 78311 SuezoltJ1O-AcqshlowtlejrerBCE-3: 09241StenzpkUqqzlupvcv ReferralSNOMED CT: 279444402 CPT-4: Z61JquihyhK7Y-UpilsymjhsijhbbLGG-6: 60475Woczrah Vital Signs Date Vital 11/09/2023 Blood Pressure 1: 110/84 Code: 8480-6 BMI: 53.3 Code: 58502-8 Heart Rate 1: 71 bpm Height: 4'11 Code: 8302-2 Respiratory Rate: 16 bpm SpO2: 99% Temperature: 36.3 (C) / 97.3 (F) Weight: 263 lbs 12 oz Code: 95780-8 09/20/2023 Blood Pressure 1: 102/78 Code: 8480-6 BMI: 51.4 Code: 54603-1 Heart Rate 1: 77 bpm Height: 4'11 Code: 8302-2 Respiratory Rate: 16 bpm SpO2: 98% Temperature: 36.3 (C) / 97.3 (F) Weight: 254 lbs 8 oz Code: 48975-3 08/05/2023 Blood Pressure 1: 118/84 Code: 8480-6 BMI: 51.3 Code: 13576-6 Heart Rate 1: 70 bpm Height: 4'11 Code: 8302-2 Respiratory Rate: 16 bpm SpO2: 98% Temperature: 36.4 (C) / 97.5 (F) Weight: 254 lbs Code: 13187-4 06/24/2023 Blood Pressure 1: 122/76 Code: 8480-6 BMI: 51.1 Code: 28211-1 Heart Rate 1: 67 bpm Height: 4'11 Code: 8302-2 Respiratory Rate: 16 bpm SpO2: 98% Temperature: 36.7 (C) / 98.1 (F) Weight: 253 lbs Code: 60525-3 05/04/2023 Blood Pressure 1: 114/76 Code: 8480-6 BMI: 78.8 Code: 57428-0 Heart Rate 1: 70 bpm Height: 4' Code: 8302-2 Random Blood Sugar: 108/NaN Respiratory Rate: 16 bpm SpO2: 98% Temperature: 36.7 (C) / 98.1 (F) Weight: 258 lbs 4 oz Code: 19645-4 01/27/2023 Blood Pressure 1: 100/60 Code: 8480-6 BMI: 81.3 Code: 48361-3 Heart Rate 1: 79 bpm Height: 4' Code: 8302-2 Respiratory Rate: 20 bpm SpO2: 97% Temperature: 36.5 (C) / 97.7 (F) Weight: 266 lbs 8 oz Code: 80531-7 11/23/2022 Blood Pressure 1: 100/68 Code: 8480-6 BMI: 54.7 Code: 78132-5 Heart Rate 1: 80 bpm Height: 4'11 Code: 8302-2 Respiratory Rate: 16 bpm SpO2: 98% Temperature: 36.3 (C) / 97.3 (F) Weight: 270 lbs 12 oz Code: 99987-8 2022 Blood Pressure 1: 104/78 Code: 8480-6 BMI: 54.4 Code: 19231-6 Heart Rate 1: 90 bpm Height: 4'11 Code: 8302-2 Random Blood Sugar: 117/NaN Respiratory Rate: 18 bpm SpO2: 98% Temperature: 36.3 (C) / 97.3 (F) Weight: 269 lbs 9 oz Code: 39405-5 08/17/2022 Blood Pressure 1: 126/82 Code: 8480-6 BMI: 53.9 Code: 35000-0 Heart Rate 1: 81 bpm Height: 4'11 Code: 8302-2 Respiratory Rate: 16 bpm SpO2: 99% Temperature: 36.3 (C) / 97.3 (F) Weight: 266 lbs 12 oz Code: 67264-9 06/23/2022 Blood Pressure 1: 130/78 Code: 8480-6 BMI: 55.2 Code: 30613-3 Heart Rate 1: 75 bpm Height: 4'11 Code: 8302-2 Random Blood Sugar: 114/NaN Respiratory Rate: 18 bpm SpO2: 98% Temperature: 36.3 (C) / 97.3 (F) Weight: 273 lbs 3 oz Code: 20396-0 04/19/2022 Blood Pressure 1: 102/82 Code: 8480-6 BMI: 55.1 Code: 02112-6 Heart Rate 1: 85 bpm Height: 4'11 Code: 8302-2 Respiratory Rate: 18 bpm SpO2: 97% Temperature: 36.5 (C) / 97.7 (F) Weight: 272 lbs 12 oz Code: 87691-5 02/11/2022 Blood Pressure 1: 116/82 Code: 8480-6 BMI: 55.1 Code: 66404-4 Heart Rate 1: 90 bpm Height: 4'11 Code: 8302-2 Respiratory Rate: 18 bpm SpO2: 98% Temperature: 36.1 (C) / 97.0 (F) Weight: 272 lbs 12 oz Code: 48390-8 12/03/2021 Blood Pressure 1: 118/76 Code: 8480-6 BMI: 54.1 Code: 30226-1 Heart Rate 1: 82 bpm Height: 4'11 Code: 8302-2 Respiratory Rate: 16 bpm SpO2: 98% Temperature: 36.4 (C) / 97.5 (F) Weight: 268 lbs Code: 93731-6 11/02/2021 Blood Pressure 1: 108/86 Code: 8480-6 BMI: 55.2 Code: 27917-3 Heart Rate 1: 81 bpm Height: 4'11 Code: 8302-2 Respiratory Rate: 16 bpm SpO2: 98% Temperature: 36.3 (C) / 97.3 (F) Weight: 273 lbs 6 oz Code: 52892-5 10/07/2021 Blood Pressure 1: 122/78 Code: 8480-6 BMI: 53.7 Code: 20326-8 Heart Rate 1: 80 bpm Height: 4'11 Code: 8302-2 Respiratory Rate: 18 bpm SpO2: 98% Temperature: 36.6 (C) / 97.8 (F) Weight: 266 lbs Code: 97634-1 04/01/2021 Blood Pressure 1: 116/84 Code: 8480-6 BMI: 53.4 Code: 20787-0 Heart Rate 1: 78 bpm Height: 4'11 Code: 8302-2 Respiratory Rate: 18 bpm SpO2: 98% Temperature: 36.3 (C) / 97.3 (F) Weight: 264 lbs 4 oz Code: 63226-1 02/11/2021 Blood Pressure 1: 96/74 Code: 8480-6 BMI: 53.1 Code: 56165-2 Heart Rate 1: 72 bpm Height: 4'11 Code: 8302-2 Respiratory Rate: 18 bpm SpO2: 98% Temperature: 36.5 (C) / 97.7 (F) Weight: 263 lbs Code: 87234-5 01/29/2021 Blood Pressure 1: 128/70 Code: 8480-6 BMI: 53.3 Code: 66541-0 Heart Rate 1: 75 bpm Height: 4'11 Code: 8302-2 Respiratory Rate: 20 bpm SpO2: 95% Temperature: 37.1 (C) / 98.7 (F) Weight: 264 lbs Code: 76221-3 12/17/2020 Blood Pressure 1: 134/82 Code: 8480-6 BMI: 53.1 Code: 94105-4 Heart Rate 1: 90 bpm Height: 4'11 Code: 8302-2 Respiratory Rate: 16 bpm SpO2: 98% Temperature: 36.4 (C) / 97.5 (F) Weight: 263 lbs Code: 93965-5 10/29/2020 Blood Pressure 1: 98/66 Code: 8480-6 BMI: 53.3 Code: 03874-5 Heart Rate 1: 80 bpm Height: 4'11 Code: 8302-2 Respiratory Rate: 16 bpm SpO2: 99% Temperature: 36.6 (C) / 97.9 (F) Weight: 264 lbs Code: 19736-5 09/24/2020 Blood Pressure 1: 122/84 Code: 8480-6 BMI: 53.1 Code: 50327-6 Heart Rate 1: 68 bpm Height: 4'11 Code: 8302-2 Respiratory Rate: 16 bpm Temperature: 36.7 (C) / 98.1 (F) Weight: 263 lbs Code: 71210-9 06/11/2020 Blood Pressure 1: 116/68 Code: 8480-6 BMI: 55.1 Code: 18753-3 Heart Rate 1: 90 bpm Height: 4'11 Code: 8302-2 Random Blood Sugar: 127/NaN Respiratory Rate: 16 bpm SpO2: 98% Temperature: 36.5 (C) / 97.7 (F) Weight: 273 lbs Code: 25321-9 05/14/2020 Blood Pressure 1: 100/82 Code: 8480-6 BMI: 54.7 Code: 83557-8 Heart Rate 1: 86 bpm Height: 4' Code: 8302-2 Respiratory Rate: 18 bpm SpO2: 98% Temperature: 36.6 (C) / 97.9 (F) Weight: 271 lbs Code: 23243-1 04/17/2020 Blood Pressure 1: 10 7 Code: 8480-6 Heart Rate 1: 90 bpm Weight: 264 lbs Code: 64593-3 03/21/2020 Blood Pressure 1: 139/87 Code: 8480-6 BMI: 53.9 Code: 90074-2 Heart Rate 1: 86 bpm Height: 4'11 Code: 8302-2 SpO2: % Weight: 267 lbs Code: 79421-0 02/14/2020 BMI: 54.5 Code: 17533-0 Height: 4'11 Code: 8302-2 Weight: 270 lbs Code: 30367-2 01/24/2020 BMI: 55.9 Code: 34901-5 Height: 4'11 Code: 8302-2 Weight: 277 lbs Code: 37598-1 01/01/2020 Random Blood Sugar: 171/NaN 11/28/2019 Blood Pressure 1: 120/85 Code: 8480-6 BMI: 58.8 Code: 24613-9 Heart Rate 1: 92 bpm Height: 4'11 Code: 8302-2 Respiratory Rate: 18 bpm SpO2: 97% Temperature: 36.4 (C) / 97.5 (F) Weight: 291 lbs Code: 27184-2 10/17/2019 Blood Pressure 1: 110/62 Code: 8480-6 BMI: 59.6 Code: 59991-3 Heart Rate 1: 101 bpm Height: 4'11 Code: 8302-2 Random Blood Sugar: 144/NaN Respiratory Rate: 16 bpm SpO2: 99% Temperature: 36.7 (C) / 98.0 (F) Weight: 295 lbs Code: 84636-5 09/19/2019 Blood Pressure 1: 128/82 Code: 8480-6 BMI: 58.8 Code: 32412-4 Heart Rate 1: 98 bpm Height: 4'11 Code: 8302-2 Respiratory Rate: 18 bpm SpO2: 98% Temperature: 37.5 (C) / 99.5 (F) Weight: 291 lbs Code: 57144-5 07/04/2019 Random Blood Sugar: 131/NaN 06/21/2019 Blood Pressure 1: 136/78 Code: 8480-6 BMI: 56.8 Code: 36197-6 Heart Rate 1: 78 bpm Height: 4'11 Code: 8302-2 Random Blood Sugar: 118/NaN Reported Pain Level (Scale 0-10): Respiratory Rate: 18 bpm SpO2: 99% Temperature: 36.7 (C) / 98.1 (F) Weight: 281 lbs Code: 39007-8 05/24/2019 Blood Pressure 1: 110/68 Code: 8480-6 BMI: 56.8 Code: 28313-2 Heart Rate 1: 83 bpm Height: 4'11 Code: 8302-2 Respiratory Rate: 18 bpm SpO2: 99% Temperature: 36.5 (C) / 97.7 (F) Weight: 281 lbs Code: 13035-8 04/25/2019 Blood Pressure 1: 140/98 Code: 8480-6 BMI: 55.3 Code: 86775-2 Heart Rate 1: 100 bpm Height: 4'11 Code: 8302-2 Respiratory Rate: 20 bpm SpO2: 98% Temperature: 36.3 (C) / 97.3 (F) Weight: 274 lbs Code: 16264-8 03/28/2019 Blood Pressure 1: 128/88 Code: 8480-6 BMI: 57.1 Code: 48489-0 Heart Rate 1: 88 bpm Height: 4'11 Code: 8302-2 Respiratory Rate: 16 bpm SpO2: 99% Temperature: 36.3 (C) / 97.4 (F) Weight: 282 lbs 13 oz Code: 16509-6 02/14/2019 Blood Pressure 1: 122/80 Code: 8480-6 BMI: 56.1 Code: 54302-4 Heart Rate 1: 102 bpm Height: 4'11 Code: 8302-2 Respiratory Rate: 20 bpm SpO2: 98% Temperature: 37.2 (C) / 99.0 (F) Weight: 278 lbs Code: 80142-2 01/31/2019 Blood Pressure 1: 144/82 Code: 8480-6 BMI: 55.3 Code: 36510-9 Heart Rate 1: 104 bpm Height: 4'11 Code: 8302-2 Random Blood Sugar: 110/NaN Respiratory Rate: 20 bpm SpO2: 99% Temperature: 37.0 (C) / 98.6 (F) Weight: 274 lbs Code: 33221-4 12/27/2018 Blood Pressure 1: 110/78 Code: 8480-6 BMI: 54.3 Code: 06485-6 Heart Rate 1: 66 bpm Height: 4'11 Code: 8302-2 Karnofsky Score (0-100): 60 Random Blood Sugar: 112/NaN Respiratory Rate: 18 bpm SpO2: 99% Temperature: 36.8 (C) / 98.2 (F) Weight: 269 lbs Code: 13503-6 11/29/2018 Blood Pressure 1: 128/80 Code: 8480-6 BMI: 52.5 Code: 28367-0 Heart Rate 1: 55 bpm Height: 4'11 Code: 8302-2 Respiratory Rate: 18 bpm SpO2: 97% Temperature: 36.4 (C) / 97.5 (F) Weight: 260 lbs Code: 58798-9 10/04/2018 Blood Pressure 1: 118/74 Code: 8480-6 BMI: 55.5 Code: 06679-2 Heart Rate 1: 74 bpm Height: 4'11 Code: 8302-2 Respiratory Rate: 18 bpm SpO2: 98% Temperature: 36.9 (C) / 98.4 (F) Weight: 275 lbs Code: 00379-5 09/06/2018 Blood Pressure 1: 110/80 Code: 8480-6 BMI: 55.7 Code: 42067-7 Heart Rate 1: 74 bpm Height: 4'11 Code: 8302-2 Random Blood Sugar: 106/NaN Respiratory Rate: 16 bpm SpO2: 98% Temperature: 36.5 (C) / 97.7 (F) Weight: 276 lbs Code: 56648-3 08/09/2018 Blood Pressure 1: 115/77 Code: 8480-6 BMI: 56.6 Code: 24272-9 Heart Rate 1: 75 bpm Height: 4'11 Code: 8302-2 Random Blood Sugar: 137/NaN Respiratory Rate: 18 bpm SpO2: 98% Temperature: 37.4 (C) / 99.3 (F) Weight: 280 lbs Code: 62060-6 07/12/2018 Blood Pressure 1: 125/78 Code: 8480-6 BMI: 57.2 Code: 55685-6 Heart Rate 1: 72 bpm Height: 4'11 Code: 8302-2 Random Blood Sugar: 103/NaN Respiratory Rate: 16 bpm SpO2: 98% Temperature: 36.3 (C) / 97.3 (F) Weight: 283 lbs Code: 64411-2 06/14/2018 Blood Pressure 1: 121/75 Code: 8480-6 BMI: 59.0 Code: 48729-5 Heart Rate 1: 84 bpm Height: 4'11 Code: 8302-2 Random Blood Sugar: 92/NaN Respiratory Rate: 16 bpm SpO2: 98% Temperature: 37.6 (C) / 99.7 (F) Weight: 292 lbs Code: 20833-7 05/31/2018 Blood Pressure 1: 113/71 Code: 8480-6 BMI: 59.0 Code: 60461-8 Heart Rate 1: 71 bpm Height: 4'11 Code: 8302-2 Random Blood Sugar: 123/NaN Respiratory Rate: 16 bpm SpO2: 98% Temperature: 37.4 (C) / 99.4 (F) Weight: 292 lbs 2 oz Code: 03909-5 Reason For Visit Reason For Visit Effective [...] Performer Location Location Address Codes Magdi e ([id number]) (EST PT) DETAILED TE LEHEALTH VISIT Diagnosis: Type 2 diabetes mellitus with peripheral neuropathy[ICD10: E11.42] Diagnosis: Hypertensive heart disease without heart failure[ICD10: I11.9] Diagnosis: Major depression, recurrent[ICD10: F33.9] Diagnosis: Adult BMI 50.0-59.9 kg/sq m[ICD10: Z68.43]Anna Bk Yzmnyy93832 [address] [address]GNU-6: 13771 11/09/2023([id number]) (EST PT) DETAILED TELEHEALTH VISIT Diagnosis: Type 2 diabetes mellitus with hyperglycemia, without long-term current use of insulin[ICD10: E11.65] Diagnosis: Impetigo[ICD10: L01.00] Diagnosis: Major depression, recurrent[ICD10: F33.9]Anna Bourgeois Arjogs58237 [address] [address]OBG-9: 57689 10/21/2023([id number]) Home or Residence Visit Est Pt - Moderate Level, 40 mins Diagnosis: Type 2 diabetes mellitus with peripheral neuropathy[ICD10: E11.42] Diagnosis: Hypertensive heart disease without heart failure[ICD10: I11.9] Diagnosis: Upper respiratory infection[ICD10: J06.9]Anna Bk Mmicrd68578 [address] [address]VMX-5: 79362 09/20/2023([id number]) Home or Residence Visit Est Pt - High Level, 60 mins Diagnosis: Type 2 diabetes mellitus with hyperglycemia, without long-term current use of insulin[ICD10: E11.65] Diagnosis: Right foot pain[ICD10: M79.671] Diagnosis: Hypertensive heart disease without heart failure[ICD10: I11.9] Diagnosis: Encounter for immunization[ICD10: Z23]Anna Bourgeois Office [address] [place] [address] 76344CSA-6: [phone] ([id number]) Home or Residence Visit Est Pt - Moderate Level, 40 mins Diagnosis: Type 2 diabetes mellitus with peripheral neuropathy[ICD10: E11.42] Diagnosis: Hypertensive heart disease without heart failure[ICD10: I11.9] Diagnosis: Major depression, recurrent[ICD10: F33.9] Diagnosis: Adult BMI 50.0-59.9 kg/sq m[ICD10: Z68.43]Annahussein Bourgeois Vadgef[address] [place] [address] 38345QSW-2: 84015 06/24/2023([id number]) Home or Residence Visit Est Pt - Moderate Level, 40 mins Diagnosis: Type 2 diabetes mellitus with peripheral neuropathy[ICD10: E11.42] Diagnosis: Hyperlipidemia, mixed[ICD10: E78.2] Diagnosis: Hypertensive heart disease without heart failure[ICD10: I11.9] Diagnosis: Major depression, recurrent[ICD10: F33.9] Diagnosis: Vitamin D deficiency[ICD10: E55.9] Diagnosis: Nonintractable epileptic seizures due to external causes, without status epilepticus[ICD10: G40.509]Anna Bk Zrviie[address] [place] [address] 86511QQD-2: [id number]/04/2023([id number]) Home or Residence Visit Est Pt - Moderate Level, 40 mins Diagnosis: Type 2 diabetes mellitus with peripheral neuropathy[ICD10: E11.42] Diagnosis: Hypertensive heart disease[ICD10: I11.9] Diagnosis: Major depression, recurrent[ICD10: F33.9] Diagnosis: Insomnia[ICD10: G47.00] Diagnosis: Adult BMI 50.0-59.9 kg/sq m[ICD10: Z68.43]Annahussein Bourgeois Mydcjn[address] [place] [address] 56721KFG-7: 40097 01/27/2023([id number]) Home or Residence Visit Est Pt - Moderate Level, 40 mins Diagnosis: GERD (gastroesophageal reflux disease)[ICD10: K21.9] Diagnosis: Type 2 diabetes mellitus with peripheral neuropathy[ICD10: E11.42] Diagnosis: Hypertensive heart disease[ICD10: I11.9] Diagnosis: Major depression, recurrent[ICD10: F33.9]Anna Bk Khpsjx[address] [place] [address] 05945YBU-0: 69640 11/23/2022([id number]) Home or Residence Visit Est Pt - Moderate Level, 40 mins Diagnosis: Type 2 diabetes mellitus with peripheral neuropathy[ICD10: E11.42] Diagnosis: Hypertensive heart disease[ICD10: I11.9] Diagnosis: Major depression, recurrent[ICD10: F33.9] Diagnosis: Open wound of right middle finger[ICD10: S61.A] Diagnosis: Adult BMI 50.0-59.9 kg/sq m[ICD10: Z68.43] Diagnosis: Encounter for screening for tobacco use[ICD10: Z01.89]Anna Bk Qedolt[address] [place] [address] 55743 CPT-4: 6850329([id number]) HOME VISIT EST PATIENT Diagnosis: Type 2 diabetes mellitus with peripheral neuropathy[ICD10: E11.42] Diagnosis: Hypertension[ICD10: I10] Diagnosis: Adult BMI 50.0-59.9 kg/sq m[ICD10: Z68.43] Diagnosis: Fungal infection of skin[ICD10: B36.9] Diagnosis: Encounter for immunization[ICD10: Z23] Diagnosis: Influenza vaccine refused[ICD10: Z28.21]Anna Bk Ggcbip[address] [place] [address] 69635RQN-6: 01755 08/17/2022([id number]) HOME VISIT EST PATIENT Diagnosis: Type 2 diabetes mellitus with peripheral neuropathy[ICD10: E11.42] Diagnosis: Hypertensive heart disease[ICD10: I11.9] Diagnosis: Major depression, recurrent[ICD10: F33.9] Diagnosis: Hypothyroid[ICD10: E03.9] Diagnosis: Obstructive sleep apnea (adult) (pediatric)[ICD10: G47.33] Diagnosis: Adult BMI 50.0-59.9 kg/sq m[ICD10: Z68.43] Diagnosis: Influenza vaccine refused[ICD10: Z28.21]Anna Bk Hfckaz[address] [place] [address] 11978QGX-4: 06570 06/23/2022([id number]) HOME VISIT EST PATIENT Diagnosis: Hypertension[ICD10: I10] Diagnosis: Type 2 diabetes mellitus with peripheral neuropathy[ICD10: E11.42] Diagnosis: Adult BMI 50.0-59.9 kg/sq m[ICD10: Z68.43] Diagnosis: Hyperlipidemia, mixed[ICD10: E78.2]Chivo Johnson Mvlkmf[address] [place] [address] 26184OQX-7: [phone]([id number]) HOME VISIT EST PATIENT Diagnosis: Hypertension[ICD10: I10] Diagnosis: Type 2 diabetes mellitus with peripheral neuropathy[ICD10: E11.42] Diagnosis: Adult BMI 50.0-59.9 kg/sq m[ICD10: Z68.43] Diagnosis: Hyperlipidemia, mixed[ICD10: E78.2] Diagnosis: Obstructive sleep apnea (adult) (pediatric)[ICD10: G47.33] Diagnosis: Allergic rhinitis[ICD10: J30.9] Diagnosis: (Z00.00-V70.9) Encounter for general adult medical examination without abnormal findings[ICD10: Z00.00]Chivo Johnson P[address] [place] [address] 02006DYU-2: [phone]([id number]) HOME VISIT EST PATIENT Diagnosis: Hypertension[ICD10: I10] Diagnosis: Hypertensive heart disease[ICD10: I11.9] Diagnosis: Type 2 diabetes mellitus with peripheral neuropathy[ICD10: E11.42] Diagnosis: Adult BMI 50.0-59.9 kg/sq m[ICD10: Z68.43] Diagnosis: Vitamin D deficiency[ICD10: E55.9] Diagnosis: Hyperlipidemia, mixed[ICD10: E78.2]Mikey Engel Qavvmz[address] [place] [address] 13138NIX-5: [phone]([id number]) HOME VISIT EST PATIENT Diagnosis: Adult BMI 50.0-59.9 kg/sq m[ICD10: Z68.43] Diagnosis: Type 2 diabetes mellitus with peripheral neuropathy[ICD10: E11.42] Diagnosis: Syncope and collapse[ICD10: R55] Diagnosis: Family history of seizures[ICD10: Z84.89] Diagnosis: Obstructive sleep apnea (adult) (pediatric)[ICD10: G47.33]Chivo SweetSesar Uux[address] [place] [address] 55950 CPT-4: [id number]/(82248) HOME VISIT EST PATIENT Diagnosis: Type 2 diabetes mellitus with peripheral neuropathy[ICD10: E11.42] Diagnosis: Adult BMI 50.0-59.9 kg/sq m[ICD10: Z68.43] Diagnosis: Diarrhea[ICD10: R19.7] Diagnosis: Syncope and collapse[ICD10: R55] Diagnosis: Family history of seizures[ICD10: Z84.89]Chivo SalvadorEcho [address] [address]BHU-8: 19437 10/07/2021([id number]) Other Reason/Patient not seen Diagnosis: Patient not seen[ICD10: UXZ.01]Chivo SweetSesar [address] [address]PPO-5: [phone]([id number]) (EST PT) EXPANDED PROBLEM FOCUSED TELEHEALTH VISIT Diagnosis: Type 2 diabetes mellitus with peripheral neuropathy[ICD10: E11.42] Diagnosis: GERD (gastroesophageal reflux disease)[ICD10: K21.9] Diagnosis: Hyperlipidemia, unspecified[ICD10: E78.5] Diagnosis: Diarrhea[ICD10: R19.7]Chivo SalvadorEcho [address] [address]DEA-8: [id number]/13/2020([id number]) (EST PT) EXPANDED PROBLEM FOCUSED TELEHEALTH VISIT Diagnosis: Type 2 diabetes mellitus with peripheral neuropathy[ICD10: E11.42] Diagnosis: GERD (gastroesophageal reflux disease)[ICD10: K21.9] Diagnosis: Hyperlipidemia, unspecified[ICD10: E78.5] Diagnosis: Dyspnea, unspecified[ICD10: R06.00]Chivo Johnson [address] [address]VSC-9: [phone]([id number]) (EST PT) EXPANDED PROBLEM FOCUSED TELEHEALTH VISIT Diagnosis: COVID-19 virus RNA test result positive at limit of detection[ICD10: U07.1] Diagnosis: Type 2 diabetes mellitus with peripheral neuropathy[ICD10: E11.42] Diagnosis: GERD (gastroesophageal reflux disease)[ICD10: K21.9] Diagnosis: Adjustment disorder with mixed anxiety and depressed mood[ICD10: F43.23]Chivo Johnson [address] [address]FVV-6: [phone](05006) (EST PT) DETAILED TELEHEALTH VISIT Diagnosis: Upper respiratory infection[ICD10: J06.9] Diagnosis: Type 2 diabetes mellitus with peripheral neuropathy[ICD10: E11.42] Anna CulverJoseariane [address] [address]BLI-0: [phone]([id number]) (EST PT) EXPANDED PROBLEM FOCUSED TELEHEALTH VISIT Diagnosis: Syncope and collapse[ICD10: R55] Diagnosis: Type 2 diabetes mellitus with peripheral neuropathy[ICD10: E11.42] Diagnosis: Family history of seizures[ICD10: Z84.89] Diagnosis: Hypertensive heart disease with heart failure[ICD10: I11.0] Diagnosis: Chronic kidney disease, stage 2 (mild)[ICD10: N18.2]Chivo Sweetcarissa Tejada [address] [address]TWT-5: [phone](53105) (EST PT) DETAILED TELEHEALTH VISIT Diagnosis: Syncope and collapse[ICD10: R55] Diagnosis: Type 2 diabetes mellitus with peripheral neuropathy[ICD10: E11.42] Diagnosis: Family history of seizures[ICD10: Z84.89] Diagnosis: Hypertensive heart disease with heart failure[ICD10: I11.0] Diagnosis: Chronic kidney disease, stage 2 (mild)[ICD10: N18.2] Diagnosis: Anorexia[ICD10: R63.0]Anna CulverMallory [address] [address]KHU-7: [id number]) (EST PT) EXPANDED PROBLEM FOCUSED TELEHEALTH VISIT Diagnosis: Type 2 diabetes mellitus with peripheral neuropathy[ICD10: E11.42] Diagnosis: Hypertensive heart disease with heart failure[ICD10: I11.0] Diagnosis: Post-traumatic stress disorder, unspecified[ICD10: F43.10] Diagnosis: Adjustment disorder with mixed anxiety and depressed mood[ICD10: F43.23]Chivo Elizabeth [id number] [place], [place] [id number]-4: [id number]/HOME VISIT EST PATIENT Diagnosis: Type 2 diabetes mellitus with peripheral neuropathy[ICD10: E11.42] Diagnosis: Hypertensive heart disease with heart failure[ICD10: I11.0]Annahussein Bourgeois [place] [id number] CPT-4: [id number]/([id number]) (EST PT) DETAILED TELEHEALTH VISIT Diagnosis: Blister[ICD10: T14.8XXA] Diagnosis: Type 2 diabetes mellitus with peripheral neuropathy[ICD10: E11.42] Diagnosis: Anorexia[ICD10: R63.0] Diagnosis: Obstructive sleep apnea (adult) (pediatric)[ICD10: G47.33]Anna Bk [id number] [place], [place] [id number] CPT-4: [id number]/([id number]) (EST PT) DETAILED TELEHEALTH VISIT Diagnosis: Type 2 diabetes mellitus with peripheral neuropathy[ICD10: E11.42] Diagnosis: Hypertensive heart disease with heart failure[ICD10: I11.0] Diagnosis: Adjustment disorder with mixed anxiety and depressed mood[ICD10: F43.23] Diagnosis: Encounter for screening for tobacco use[ICD10: Z01.89]Anna Bourgeois [address] [place], [place] [id number] CPT-4: [id number] VISIT EST PATIENT Diagnosis: Type 2 diabetes mellitus with peripheral neuropathy[ICD10: E11.42] Diagnosis: Elevated liver enzymes[ICD10: R74.8] Diagnosis: Hyperlipidemia, unspecified[ICD10: E78.5]Anna Bourgeois [address] [place] [address] 36673OFG-2: [id number] 02/11/2021HOME VISIT EST PATIENT Diagnosis: Hypertensive heart disease with heart failure[ICD10: I11.0] Diagnosis: Type 2 diabetes mellitus with peripheral neuropathy[ICD10: E11.42] Diagnosis: Chronic kidney disease, stage 2 (mild)[ICD10: N18.2] Diagnosis: History of bladder surgery[ICD10: Z98.890] Diagnosis: Urinary retention with incomplete bladder emptying[ICD10: R33.9] Diagnosis: GERD (gastroesophageal reflux disease)[ICD10: K21.9]Chivo Edna Tejada [address] [place] [address] 33943FJM-5: [id number]) (EST PT) DETAILED TELEHEALTH VISIT Diagnosis: Hypertensive [...] Encounter for screening for depression[ICD10: Z13.31] Anna Bk Hhikkr[address] [place] [address] 35853PTH-8: [id number] VISIT EST PATIENT Diagnosis: Type 2 diabetes mellitus with peripheral neuropathy[ICD10: E11.42] Diagnosis: Hypertensive heart disease with heart failure[ICD10: I11.0] Diagnosis: Obstructive sleep apnea (adult) (pediatric)[ICD10: G47.33] Diagnosis: Anorexia[ICD10: R63.0]Anna Bk Hnpblp[address] [place] [address] 40050RNG-7: [id number]) (EST PT) EXPANDED PROBLEM FOCUSED TELEHEALTH VISIT Diagnosis: Superficial burn of multiple sites of right hand, subsequent encounter[ICD10: T23.191D] Diagnosis: Type 2 diabetes mellitus with peripheral neuropathy[ICD10: E11.42] Diagnosis: Essential (primary) hypertension[ICD10: I10] Diagnosis: History of surgery on right wrist[ICD10: Z98.890] Diagnosis: GERD (gastroesophageal reflux disease)[ICD10: K21.9]Chivo Salvadorsofiya [place] [address] [place] [address] 89962GGE-1: [phone]) (EST PT) EXPANDED PROBLEM FOCUSED TELEHEALTH VISIT Diagnosis: Type 2 diabetes mellitus with peripheral neuropathy[ICD10: E11.42] Diagnosis: Essential (primary) hypertension[ICD10: I10] Diagnosis: History of surgery on right wrist[ICD10: Z98.890]Anna Culver [place] X[address] [place] [address] 81525ZWU-2: [id number] VISIT EST PATIENT Diagnosis: Type 2 diabetes mellitus with peripheral neuropathy[ICD10: E11.42] Diagnosis: Chronic kidney disease, stage 2 (mild)[ICD10: N18.2] Diagnosis: Right wrist pain[ICD10: M25.531] Diagnosis: Essential (primary) hypertension[ICD10: I10] Diagnosis: GERD (gastroesophageal reflux disease)[ICD10: K21.9] Diagnosis: History of surgery on right wrist[ICD10: Z98.890] Diagnosis: Adjustment disorder with mixed anxiety and depressed mood[ICD10: F43.23]Anna Bourgeois [address] [place] [address] 23866XXS-3: [id number]/HOME VISIT EST PATIENT Diagnosis: Type 2 diabetes mellitus with peripheral neuropathy[ICD10: E11.42] Diagnosis: Hypertensive heart disease with heart failure[ICD10: I11.0] Diagnosis: Adjustment disorder with mixed anxiety and depressed mood[ICD10: F43.23] Diagnosis: GERD (gastroesophageal reflux disease)[ICD10: K21.9] Diagnosis: Abnormal urine finding[ICD10: R82.90][facility] [address] [place] [address] 30470UFO-2: [phone] ([id number]) (EST PT) EXPANDED PROBLEM FOCUSED TELEHEALTH VISIT Diagnosis: Type 2 diabetes mellitus with peripheral neuropathy[ICD10: E11.42] Anna Bourgeois Ncnf[address] [place] [address] 21554PMY-6: [id number]/26/2019([id number]) (EST PT) EXPANDED PROBLEM FOCUSED TELEHEALTH VISIT Diagnosis: Type 2 diabetes mellitus with peripheral neuropathy[ICD10: E11.42] Diagnosis: Adjustment disorder with mixed anxiety and depressed mood[ICD10: F43.23] Diagnosis: Polyneuropathy, unspecified[ICD10: G62.9]Anna Bourgeois [address] [place] [address] 95893PEB-8: 84717 08/19/2020([id number]) (EST PT) PROBLEM FOCUSED TELEHEALTH VISIT Diagnosis: Type 2 diabetes mellitus with peripheral neuropathy[ICD10: E11.42] Diagnosis: Essential (primary) hypertension[ICD10: I10]Anna Bourgeois Zoyq[address] [place] [address] 22724JOJ-9: [phone] 07/22/2020([id number]) REMOTE E/M EST. PT 15MINS ([id number]) Diagnosis: Type 2 diabetes mellitus with peripheral neuropathy[ICD10: E11.42] Diagnosis: Essential (primary) hypertension[ICD10: I10] Diagnosis: Encounter for screening, unspecified[ICD10: Z13.9]Anna Tejada Jhzach[address] [place] [address] 45773MGL-5: [id number]/03/2020HOME VISIT EST PATIENT Diagnosis: Hypertensive heart disease with heart failure[ICD10: I11.0] Diagnosis: Chronic kidney disease, unspecified[ICD10: N18.9] Diagnosis: Type 2 diabetes mellitus with peripheral neuropathy[ICD10: E11.42] Diagnosis: Hyperlipidemia, unspecified[ICD10: E78.5] Diagnosis: Hypothyroidism, unspecified[ICD10: E03.9] Diagnosis: Encounter for immunization[ICD10: Z23] Diagnosis: (Z12.4-V76.2) Encounter for screening for malignant neoplasm of cervix[ICD10: Z12.4]Anna Bourgeois Y[address] [place] [address] 13552TZR-1: 7496786/06/2020HOME VISIT EST PATIENT Diagnosis: Type 2 diabetes mellitus with peripheral neuropathy[ICD10: E11.42] Diagnosis: Right wrist pain[ICD10: M25.531] Diagnosis: Hypertensive heart disease with heart failure[ICD10: I11.0]Anna Bourgeois Lipkjo[address] [place] [address] 73439 CPT-4: [id number]/09/2020([id number]) (EST PT) EXPANDED PROBLEM FOCUSED TELEHEALTH VISIT Diagnosis: Type 2 diabetes mellitus with peripheral neuropathy[ICD10: E11.42] Diagnosis: Chronic kidney disease, unspecified[ICD10: N18.9] Diagnosis: (Z12.31-V76.12) Encounter for screening mammogram for malignant neoplasm of breast[ICD10: Z12.31] Diagnosis: (Z12.11-V76.51) Encounter for screening for malignant neoplasm of colon[ICD10: Z12.11]Anna Friedmanlucilaelyssa Xwljyk[address] [place] [address] 90187YAO-4: [id number]) (EST PT) EXPANDED PROBLEM FOCUSED TELEHEALTH VISIT Diagnosis: Essential (primary) hypertension[ICD10: I10] Diagnosis: Adult BMI 50.0-59.9 kg/sq m[ICD10: Z68.43]Anna Bourgeois Z[address]fe[address] [place] [address] 11818BEJ-4: [id number] 03/21/2020([id number]) (EST PT) EXPANDED PROBLEM FOCUSED TELEHEALTH VISIT Diagnosis: Type 2 diabetes mellitus with peripheral neuropathy[ICD10: E11.42] Diagnosis: Essential (primary) hypertension[ICD10: I10] Diagnosis: Abrasion of toe[ICD10: S90.416A] Diagnosis: Encounter for screening for malignant neoplasm of cervix[ICD10: Z12.4] Diagnosis: Obstructive sleep apnea (adult) (pediatric)[ICD10: G47.33]Anna CulverMallory Hy[address]zya[address] [place] [address] 98036 CPT-4: [id number]) (EST PT) EXPANDED PROBLEM FOCUSED TELEHEALTH VISIT Diagnosis: Type 2 diabetes mellitus with peripheral neuropathy[ICD10: E11.42] Diagnosis: Essential (primary) hypertension[ICD10: I10]Anna CulverArthur Wmtgyr[address] [place] [address] 83857IKB-5: 19020 01/24/2020([id number]) (EST PT) EXPANDED PROBLEM FOCUSED TELEHEALTH VISIT Diagnosis: Type 2 diabetes mellitus with peripheral neuropathy[ICD10: E11.42] Diagnosis: Essential (primary) hypertension[ICD10: I10] 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] Diagnosis: Syncope and collapse[ICD10: R55] Diagnosis: Encounter for screening for tobacco use[ICD10: Z01.89]Anna Bk Pd[address] [place] [address] 25271 CPT-4: [id number]/HOME VISIT EST PATIENT Diagnosis: Adjustment disorder with mixed anxiety and depressed mood[ICD10: F43.23] Diagnosis: Hypertensive heart disease with heart failure[ICD10: I11.0] Diagnosis: Adult BMI 50.0-59.9 kg/sq m[ICD10: Z68.43]Anna CulverJosesamaritan [facility] health centerelyssa [address] 38430YKH-0: [id number] 11/28/2019HOME VISIT EST PATIENT Diagnosis: Essential (primary) hypertension[ICD10: I10] Diagnosis: Type 2 diabetes mellitus without complications[ICD10: E11.9] Diagnosis: Obstructive sleep apnea (adult) (pediatric)[ICD10: G47.33] Diagnosis: Asthma[ICD10: J45.909] Diagnosis: Adjustment disorder with mixed anxiety and depressed mood[ICD10: F43.23]Anna Bk Imyukx[address] [place] [address] 21660IZE-1: [phone] VISIT EST PATIENT Diagnosis: Type 2 diabetes mellitus without complications[ICD10: E11.9] Diagnosis: Hypertensive heart disease with heart failure[ICD10: I11.0] Diagnosis: Chronic kidney disease, unspecified[ICD10: N18.9] Diagnosis: Mixed incontinence[ICD10: N39.46]Anna Bk Dumgfl[address] [place] [address] 62939QMA-8: [id number] VISIT EST PATIENT Diagnosis: Chronic kidney disease, unspecified[ICD10: N18.9] Diagnosis: Essential (primary) hypertension[ICD10: I10] Diagnosis: Hypertensive heart disease with heart failure[ICD10: I11.0] Diagnosis: Hypothyroidism, unspecified[ICD10: E03.9] Diagnosis: Mixed incontinence[ICD10: N39.46] Diagnosis: Type 2 diabetes mellitus without complications[ICD10: E11.9][facility] Ujnz[address] [place] [address] 20307GMA- 4: [id number] VISIT EST PATIENT Diagnosis: Hyperlipidemia, unspecified[ICD10: E78.5] Diagnosis: Hypothyroidism, unspecified[ICD10: E03.9] Diagnosis: Mixed incontinence[ICD10: N39.46] Diagnosis: Type 2 diabetes mellitus without complications[ICD10: E11.9] Diagnosis: Chronic kidney disease, unspecified[ICD10: N18.9] Diagnosis: Obstructive sleep apnea (adult) (pediatric)[ICD10: G47.33] Diagnosis: Hypertensive heart disease with heart failure[ICD10: I11.0][facility] Juf[address]ic[address] [place] [address] 66063HBO- 4: [id number] VISIT EST PATIENT Diagnosis: Mixed incontinence[ICD10: N39.46] Diagnosis: Type 2 diabetes mellitus without complications[ICD10: E11.9] Diagnosis: Hypothyroidism, unspecified[ICD10: E03.9] Diagnosis: Hyperlipidemia, unspecified[ICD10: E78.5] Diagnosis: Apnea, not elsewhere classified[ICD10: R06.81] Diagnosis: Essential (primary) hypertension[ICD10: I10] Diagnosis: Encounter for screening, unspecified[ICD10: Z13.9] Diagnosis: Encounter for immunization[ICD10: Z23]Charlene Rivera Office [address] [place] [address] 19700FET-8: [id number] (IND) Independent Lab Draw Diagnosis: Patient Not Seen[ICD10: UXZ.01][facility] Ivug[address] [place] [address] 26594FOZ-7: IND04/27/2019HOME VISIT EST PATIENT Diagnosis: Hypertensive heart disease with heart failure[ICD10: I11.0] Diagnosis: Unspecified asthma, uncomplicated[ICD10: J45.909] Diagnosis: Type 2 diabetes mellitus without complications[ICD10: E11.9] Diagnosis: Encounter for immunization[ICD10: Z23] Diagnosis: Encounter for screening for malignant neoplasm of cervix[ICD10: Z12.4]Charlene Rivera Kueajr[address] [place] [address] 10839YDG-5: [id number]/HOME VISIT EST PATIENT Diagnosis: Unspecified asthma, uncomplicated[ICD10: J45.909] Diagnosis: Apnea, not elsewhere classified[ICD10: R06.81] Diagnosis: Body mass index (BMI) 50-59.9 , adult[ICD10: Z68.43] Diagnosis: Essential (primary) hypertension[ICD10: I10] Diagnosis: Chest pain, unspecified[ICD10: R07.9] Diagnosis: Encounter for preprocedural cardiovascular examination[ICD10: Z01.810]Rasta Sesay Vrffpu[address] [place] [address] 62150VQO-5: [id number] VISIT EST PATIENT Diagnosis: Apnea, not elsewhere classified[ICD10: R06.81] Diagnosis: Body mass index (BMI) 50-59.9 , adult[ICD10: Z68.43]Rasta Tejada Qhhbua[address] [place] [address] 66841GGL-5: [id number]/HOME VISIT EST PATIENT Diagnosis: Apnea, not elsewhere classified[ICD10: R06.81] Diagnosis: Essential (primary) hypertension[ICD10: I10] Diagnosis: Type 2 diabetes mellitus without complications[ICD10: E11.9] Diagnosis: Unspecified asthma, uncomplicated[ICD10: J45.909] Diagnosis: Wheezing[ICD10: R06.2]Rasta Bridges Y[address] [place] [address] 66638WEX-1: [id number] VISIT EST PATIENT Diagnosis: Type 2 diabetes mellitus without complications[ICD10: E11.9] Diagnosis: Essential (primary) hypertension[ICD10: I10] Diagnosis: Unspecified asthma, uncomplicated[ICD10: J45.909] Diagnosis: Edema, unspecified[ICD10: R60.9] Diagnosis: Hypothyroidism, unspecified[ICD10: E03.9] Diagnosis: Abnormal electrocardiogram [ECG] [EKG][ICD10: R94.31]Rasta Sesay [place] [address] CPT-4: [id number]/HOME VISIT EST PATIENT Diagnosis: Type 2 diabetes mellitus without complications[ICD10: E11.9] Diagnosis: Essential (primary) hypertension[ICD10: I10] Diagnosis: Unspecified asthma, uncomplicated[ICD10: J45.909] Diagnosis: Wheezing[ICD10: R06.2] Diagnosis: Chest pain, unspecified[ICD10: R07.9] Diagnosis: Abnormal electrocardiogram [ECG] [EKG][ICD10: R94.31] Diagnosis: Adjustment disorder with mixed anxiety and depressed mood[ICD10: F43.23] Diagnosis: Post-traumatic stress disorder, unspecified[ICD10: F43.10][place] [address] CPT-4: [id number]/HOME VISIT EST PATIENT Diagnosis: Type 2 diabetes mellitus without complications[ICD10: E11.9] Diagnosis: Essential (primary) hypertension[ICD10: I10] Diagnosis: Chronic kidney disease, unspecified[ICD10: N18.9] Diagnosis: Headache[ICD10: R51]Rasta Clemencia[address] 78709HLP-6: [id number] VISIT EST PATIENT Diagnosis: Type 2 diabetes mellitus without complications[ICD10: E11.9] Diagnosis: Essential (primary) hypertension[ICD10: I10] Diagnosis: Chronic kidney disease, unspecified[ICD10: N18.9] Diagnosis: Hypothyroidism, unspecified[ICD10: E03.9] Diagnosis: Encounter for screening, unspecified[ICD10: Z13.9] Diagnosis: Post-traumatic stress disorder, unspecified[ICD10: F43.10] Diagnosis: Adjustment disorder with mixed anxiety and depressed mood[ICD10: F43.23]Rasta Clemencia[address] 634[address]ADE-7: [id number] VISIT EST PATIENT Diagnosis: Adjustment disorder with mixed anxiety and depressed mood[ICD10: F43.23] Diagnosis: Post-traumatic stress disorder, unspecified[ICD10: F43.10] Diagnosis: Essential (primary) hypertension[ICD10: I10] Diagnosis: Unspecified asthma, uncomplicated[ICD10: J45.909] Diagnosis: Wheezing[ICD10: R06.2] Diagnosis: Type 2 diabetes mellitus without complications[ICD10: E11.9][place] [address] CPT-4: [id number] VISIT EST PATIENT Diagnosis: Adjustment disorder with mixed anxiety and depressed mood[ICD10: F43.23] Diagnosis: Post-traumatic stress disorder, unspecified[ICD10: F43.10] Diagnosis: Essential (primary) hypertension[ICD10: I10] Diagnosis: Unspecified asthma, uncomplicated[ICD10: J45.909] Diagnosis: Wheezing[ICD10: R06.2] Diagnosis: Type 2 diabetes mellitus without complications[ICD10: E11.9] Diagnosis: Edema, unspecified[ICD10: R60.9]Rasta Feldman[address] [address]COU-5: [phone] VISIT EST PATIENT Diagnosis: Post-traumatic stress disorder, unspecified[ICD10: F43.10] Diagnosis: Adjustment disorder with mixed anxiety and depressed mood[ICD10: F43.23] Diagnosis: Type 2 diabetes mellitus without complications[ICD10: E11.9] Diagnosis: Essential (primary) hypertension[ICD10: I10] Diagnosis: Unspecified asthma, uncomplicated[ICD10: J45.909] Diagnosis: Wheezing[ICD10: R06.2] Diagnosis: Edema, unspecified[ICD10: R60.9] Diagnosis: long-term (current) use of non-steroidal anti-inflammatories (NSAID)[ICD10: Z79.1]Rasta Clemencia[address] [address]OMD-1: 3595164/09/2018HOME VISIT NEW PATIENT Diagnosis: Type 2 diabetes [...] mass index (BMI) 50-59.9 , adult[ICD10: Z68.43]Rasta Marquezsenthilcurt Tejada Hzpiqe[address]251 [address] 14[address]ESU-1: [phone] Plan of Care Planned Activity Notes Codes [...] DM2, patient remains motivated to lose weight 11/09/2023ppointment: Anna Culver WPtel: [address] [place], [place] [id number] Education: GizonpdrMozgutcnf96/07/2024Patient Education: Patient Medication AfpmdtiKojphkkjt52/07/2024atient Education: Hypertension Ldfzhvinf47/07/2024atient Education: IegnleeGfeoduvqf12/07/2024Visit Plan:Visit time spent involved in medical discussion with patient, including obtaining history from patient, systems review, diagnostic and laboratory test review with patient. Assessment findings and plan reviewed with patient, including time to provide counseling, and education to patient E11.65-250.00 Type 2 diabetes mellitus with hyperglycemia, without long-term current use of insulin Blood sugarsreviewed with patient, testing TID, FBS, after lunch and evening, discussed need to test at minimun2 hours after meal or before meals, most [...] mood stable PHQ 2 negative for depression 10/21/2023ppointment: Anna Culver WPtel: [address] [place] [address] USETV10/21/2023atient Education: Patient Medication JqarpjfUeunldkhq50/19/2024 Patient Education: UioffpkaWacyfqdrt96/19/2024Visit Plan:Visit time spent involved in medical discussion with patient, including obtaining history from patient, systems review, diagnostic and laboratory test review with patient. Assessment findings and plan reviewed with patient, including time to provide counseling, and education to patient Send copy oflabs to Michell Matmaoros [phone] E11.42-250.60 Type 2 diabetes mellitus with peripheral neuropathy Continues with varied blood sugars, elevations may be secondary to infectious process,continues with ozempic and januvia will check hgb a1c I11.9- 402.90 Hypertensive heart disease without heart failure stable with current medications, will order labs J06.9-465.9 Upper respiratory infection will send prescription for Amoxicillin to local pharmacy 09/20/2023ppointment: Anna Culver WPtel: [address] [place] [address] [id number] Education: Patient Medication ItfcbhqKtzikjcfm43/19/2023 Patient Education: QltbteubOislsfusu64/19/2023atient Education: Hypertension Bbxuadnbz51/19/2023atient Education: UuudjeqYivabbbak84/19/2023atient Education: Patient Medication FyesdxvDeejehhuy11/14/2023Visit Plan:Visit time spent involved in medical discussion with [...] Encounter for immunization (flu vaccine offered and acc epted, fact sheet left with patient) Will send note to Dr. Wayne for review 08/05/2023ppointment: Anna Culver WPtel: [address] [place] [address] [id number] Education: NkqsbmaoOlrfabwxu50/03/2023atient Education: RojhfgpgodqeCudvfjlzm19/03/2023atient Education: MqbnamlRjotfcwml20/03/2023 Patient Education: Weight YoogEyfqeostz65/03/2023atient Education: Patient Medication SndlduoUpvanvcoa32/03/2023are Plan: EHSTyjmazf70/03/2023Visit Plan: Visit time spent involved in medical discussion [...] F33.9-296.30 Major depression, recurrent (mood stable with trazod one) Z68.43-V85.43 Adult BMI 50.0-59.9 kg/sq m (exercise daily, 17 pound weight loss since November2022, remain motivated for weight loss) 06/24/2023ppointment: Anna Culver WPtel: [address] [place], [place] [phone] [id number] Education: OcoqghyudhmfMgqncbwpb23/22/2023atient Education: UrmppqaiwoSenqjjpbw57/22/2023atient Education: Patient Medication BzorkljPiwkuysfj16/22/2023atient Education: Weight VfewZgduumbvp16/22/2023 Patient Education: BnleyjtcNubpteawb91/22/2023atient Education: Obesity Cqkmknizc61/22/2023atient Education: Patient Medication SummaryCompleted 06/03/2023atient Education: Patient Medication WyrwxdwIraykzqrf73/27/2023Visit Plan:Visit time spent involved in medical discussion with patient, including obtaining history from patient, systems review, diagnostic and laboratory test review with patient. Assessment findings and plan reviewed with patient, including time to provide counseling, and education to patient I11.9-402.90 Hypertensive heart disease BP stable, no edema, will continue lisinopril, HCTZ continue with [facility] [employer] Josh Simon MD G47.33 Obstructive sleep apnea (adult), J45.909 Asthma breathing stable, continue utilization of Symbicort, albuterol via neb. or MDI q 4 hrs. prn dyspnea, tolerating CPAP for a few hours nightly continue with Ob Gyn Physician Assistant Jose BOWMAN K21.9 GERD (gastroesophageal reflux disease) symptoms improved, will continue omeprazole to 40mg atHS, continue famotidine, probiotic E11.42 Type 2 diabetes mellitus with peripheral neuropathy, Z68.43 Adult BMI 50.0-59.9 kg/sq m testing BS bid, range 99-133 continue Ozempic 1mg per week and gabapentin continue with Kerrie Pandya OD at [facility] trying to be more active, has step goal of 4000 steps daily, also limiting soda intake G47.00-780.52 Insomnia F33.9-296.30 Major depression, recurrent started on trazodone 50mg by Nichole Hernández, psychology for sleep issues patient feels sleep and mood much improved with this medication continue taking sertraline, buspirone Rexulti continue with [facility] in [place] E78.2 Hyperlipidemia, mixed patient has re-started atorvastatin continue Mediterranean style eating E55.9 Vitamin D deficiency continue cholecalciferol refill sent 05/04/2023ppointment: Anna Culver WPtel: [address] [place], [place] [phone] [id number] Education: EvaqixqyYlxbtools40/02/2023atient Education: Patient Medication DfmroxjYrlncbquj90/02/2023atient Education: Seizures Jzgmjahnj39/02/2023atient Education: JtmmcbhobkocVulgrruai65/02/2023atient Education: GfsukhgJtukblhpe56/02/2023atient Education: Patient Medication TaqkeabEbirlrlrn57/29/2023Visit Plan:Visit time spent involved in medical discussion with patient, including obtaining history from patient, systems review, diagnostic and laboratory test review with patient. Assessment findings and plan reviewed with patient, including time to provide counseling, and education to patient I11.9-402.90Hypertensive heart disease BP stable, no edema, will continue lisinopril, HCTZ continue with [employer] [facility] [employer] Josh Simon MD G47.33 Obstructive sleep apnea (adult), J45.909 Asthma breathing stable, continue utilization of Symbicort, albuterol via neb. or MDI q 4 hrs. prn dyspnea, tolerating CPAP for a few hours nightly continue with Ob Gyn Physician Assistant Jose BOWMAN K21.9 GERD (gastroesophageal reflux disease) symptoms improved, will continue omeprazole to 40mg atHS, continue famotidine, probiotic E11.42 Type 2 diabetes mellitus with peripheral neuropathy, Z68.43 Adult BMI 50.0-59.9 kg/sq m testing BS bid, range 99-133 continue Ozempic 1mg per week and gabapentin continue with Kerrie Pandya OD at [facility] trying to be more active, has step goal of 4000 steps daily, also limiting soda intake G47.00-780.52 Insomnia F33.9-296.30 Major depression, recurrent started on trazodone 50mg by Nichole Hernández, psychology for sleep issues patient feels sleep and mood much improved with this medication continue taking sertraline, buspirone Rexulti continue with [facility] in [place] E78.2 Hyperlipidemia, mixed patient has re-started atorvastatin continue Mediterranean style eating E55.9 Vitamin D deficiency continue cholecalciferol refill sent 01/27/2023ppointment: Anna Culver WPtel: [address] [place], [place] [phone] [id number] Education: Patient Medication PypvagwZxvkpqiwi79/27/2023 Patient Education: ArvurtsyCuggnrfjw14/27/2023atient Education: Hypertension Hbfmbwrot36/27/2023atient Education: NalritogtrQaycgugbk86/27/2023atient Education: ApovabhYxhxoembz71/27/2023atient Education: Patient Medication BrxmprtSwlxjkfnc71/24/2023atient Education: Patient Medication SummaryCompleted 12/23/2022Visit Plan:Visit time spent involved in medical discussion with patient, including obtaining history from patient, systems review, diagnostic and laboratory test review with patient. Assessment findings and plan reviewed with patient, including time to provide counseling, and education to patient I10 Essential (primary) hypertension, I11.9-402.90 Hypertensive heart disease BP stable, no edema, will continuelisinopril, HCTZ 07/02/20 Echo: EF 60%, mild conc. LVH 05/14/20 EKG: NSR 05/14/20 Nnoct. Pulse Ox.: 7 min. < 89% SpO2 continue with [facility] [facility] [employer] Josh Simon MD G47.33 Obstructive sleep apnea (adult), J45.909 Asthma breathing stable, continue utilization of Symbicort, albuterol via neb. or MDI q 4 hrs. prn dyspnea, CPAP use continues nightly continue with Ob Gyn Physician Assistant Jose BOWMAN K21.9 GERD (gastroesophageal reflux disease) [...] gabapentin continue with Kerrie Pandya OD at [facility] (06/30/21) F33.9-296.30 Major depression, recurrent 11/23/2021 PHQ 9 Score 0 continue taking sertraline, buspirone Rexulti continue with [facility] in [place] canceled visit this month, next December 2021 E78.2 Hyperlipidemia, mixed patient has re-started atorvastatin continue Mediterranean style eating E03.9 Hypothyroidism 06/23/2022 TSH 2.130, continue levothyroxine E55.9 Vitamin D deficiency continue cholecalciferol R55 Syncope and collapse, Z84.89 Family history of seizures continue with [facility] Neurologist N39.46 Mixed incontinence, R33.9 Urinary retention with incomplete bladder emptying Z98.890-V45.89 History of bladder surgery continue Myrbetriq qd ongoing use of use of incontinence supplies 01/05/21 urinary stimulator implant continue with Urologist 11/23/2022ppointment: Anna Culver WPtel: [address] [place], [place] [id number] Education: NoiohncxxpOyztldxnm98/21/2023atient Education: HttomltpPuixyqjcj25/21/2023atient Education: Patient Medication QaujytsSufaraawz58/21/2023atient Education: AghbzacsllthCgeqpaykw53/21/2023 Patient Education: TholjzdDjzyrtsme81/21/2023Visit Plan:Visit time spent involved in medical discussion with [...] min. < 89% SpO2 continue with [facility] [employer] Josh Simon MD will check labs this visit G47.33 Obstructive sleep apnea (adult), J45.909 Asthma breathing stable,continue utilization of Symbicort, albuterol via neb. or MDI q 4 hrs. prn dyspnea, CPAP use continues nightly continue with Ob Gyn Physician Assistant Jose BOWMAN last visit 05/31/2022 E11.42 Type 2 diabetes mellitus with peripheral neuropathy, Z68.43 Adult BMI 50.0-59.9 kg/sq m stable glucose monitor - testing bid FBS 115, trying to get closer to 100 continue Ozempic 1mg per week and gabapentin 06/23/2022 Hgb A1C 5.8, GFR 94 continue with Kerrie Pandya OD at [facility] (06/30/21) note 3 pound weight gain, admits to eating more over the holidays, continues to be active and motivated to lose weight, encouraged to limit carbs will check labs this visit F33.9-296.30 Major depression, recurrent continue taking sertraline, buspirone Seroquel complete and has been replaced with Rexulti continue with [facility] Obrien in [place] will check labs this visit S61.202A-883.0 Open [...] diclogenac top gel 1% qid prn arthralgia/myalgia 2022ppointment: Anna Culver WPtel: [address] [place], [place] [id number] Education: LrmfndgumnjjUalugkcss13/18/2023atient Education: Patient Medication LqnitsxJgfcryaac30/18/2023atient Education: GexyohylUrmmzuwzh58/18/2023atient Education: UymhhxjwzvNagssovma44/18/2023 Patient Education: RjccpibBncpbsrgi81/18/2023Visit Plan:I10 Essential (primary) hypertension, BP stable, will continue lisinopril, HCTZ 07/02/20 Echo: EF 60%, mild conc. LVH 05/14/20 EKG: NSR 05/14/20 Noct. Pulse Ox.: 7 min. < 89% SpO2 continue with [facility] Josh Simon MD G47.33 Obstructive sleep apnea (adult), J45.909 Asthma breathing stable CPAP use continues-was changed to nasal pillow mask at last pulmonogy visit, patient feels this has been helpful continue utilization of Symbicort, albuterol via neb. or MDI q 4 hrs. prn dyspnea, continue with Ob Gyn Physician Assistant Jose BOWMAN last visit 05/31/2022-visit note reviewed previously E11.42 Type 2 diabetes mellitus with peripheralneuropathy, Z68.43 Adult BMI 50.0-59.9 kg/sq m stable glucose monitor range 99-143 - testing bid FBS 102 this morning continue Ozempic 1mg per week and gabapentin 06/23/2022 Hgb A1C 5.8, GFR 94 11/02/21 HgbA1C 5.6, GFR >100 continue with Kerrie Pandya OD at [facility] (06/30/21) Discussed benefits of weight loss [...] has been replaced with Rexulti continue with [facility] in [place] B36.9-111.9 Fungal infection of skin inner left [...] eating E55.9 Vitamin D deficiency begin cholecalciferol 1/31/22 vit. D 20.4, PTH 133 (>88), B12 [...] diclogenac top gel 1% qid prn arthralgia/myalgia 08/17/2022ppointment: Anna Culver WPtel: [phone] [address] [id number]/17/2021atient Education: WtgbzskbbrumRcvkxflmu34/15/2022Patient Education: Patient Medication GicqkglKheyajqwk93/15/2022atient Education: NgqcyjzmQbvzdeiap26/15/2022atient Education: MijaviqJjmofkvba59/15/2022atient Education: VIS - Pneumo (23 Valent)Esbynjugg34/15/2022atient Education: Patient Medication XptcprvImazziwnq68/09/2022atient Education: Patient Medication CzqmwykYzkbsicow71/07/2022atient Education: Patient Medication SummaryCompleted 07/31/2022Visit Plan:I10 Essential (primary) hypertension, BP stable, will continue lisinopril, HCTZ 07/02/20 Echo: EF 60%, mild conc. LVH 05/14/20 EKG: NSR 05/14/20 Noct. Pulse Ox.: 7 min. < 89% SpO2 continue with [facility] [employer] Josh Simon MD will check labs this visit G47.33 Obstructive sleep apnea (adult), J45.909 Asthma breathing stable CPAP use continues-was changed to nasal pillow mask at last pulmonogy visit, patient feels this has been helpful continue utilization of Symbicort, albuterol via neb. or MDI q 4 hrs. prn dyspnea, continue with Ob Gyn Physician Assistant Jose BOWMAN last visit 05/31/2022-visit note reviewed E11.42 Type 2 diabetes mellitus with peripheral neuropathy, Z68.43 Adult BMI 50.0-59.9 kg/sq m stable glucose monitor range 103-156 - testing bid continue Ozempic 1mg per week and gabapentin 11/02/21 HgbA1C 5.6, GFR >100 continue with Kerrie Pandya OD at [facility] (06/30/21) discussed apps on her phone [...] has been replaced with Rexulti continue with [facility] in [place] Z28.21-V64.06 Influenza vaccine refused refused influenza vaccine, [...] 5 times per day continue with Urologist 06/23/2022ppointment: Anna Culver WPtel: [address] [place], [place] [address] [id number] Education: Weight OpqvByfvglrlz92/21/2022atient Education: GzwjjdrfQrwlmmcgj48/21/2022atient Education: Patient Medication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 Medication IchiimqGultolusv75/11/2021 Patient Education: NepkzedrYyizpbcva99/11/2021Visit Plan:Labs ordered last visit reviewed with patient R63.0-783.0 Anorexia symptoms improving, but persist in the morning encouraged to keep food diary for a couple weeks, will review at next visit advised to continue to try small, more frequent food intake, discussed limiting carbonated beverages as this may make her feel full taking away appetite discussed benefits of [employer]. note weight has remained stable over the past couple months-will continue to monitor E11.42- 250.60 Type2 diabetes mellitus with peripheral neuropathy ranging 94-142 -felt this was isolated, most are staying under 130 Metformin 1000mg BID - elevated liver enzymes noted with last labs, will check labs next month, may need to make adjustments to this medication received new monitor [employer] through [employer]- participant of [employer] - 01/29/2021 Hgb A1C 5.3 10/17/2019 Perry Fany 7/10-instructed on good daily foot care [...] anxiety and depressed mood routine follow up [place] [facility] [place] 08/19/2020 PHQ 9 Scoere 1, admits to [...] new appt for pap in June 2020-[facility]-reports pap negative-records requested Z01.89- V72.85 Encounter for screening for tobacco use 12/31/2020 Tobacco screen complete-patient denies ever smoking Z12.31-V76.12 (Z12.31-V76.12) Encounter for screening mammogram for malignant neoplasm of breast Z12.11-V76.51 (Z12.11- V76.51) Encounter for screening for malignant neoplasm of colon Preventative testing not indicated due to age *Ireviewed the most recent CDC guidelines regarding Covid-19/Coronavirus with the patient/caregiver/designee 02/11/2021ppointment: Anna Culver WPtel: [address] [address] [id number] Education: Patient Medication LjkozhuDkdpgrdsm25/12/2021 Patient Education: JtgflncGplvpqxdy28/12/2021atient Education: Diabetes Mplqqvnwo47/12/2021ppointment: Chivo Bishop WPtel: [address] [address] [id number] Education: Patient Medication RtcljbiLpzhgumtn90/29/2021 Patient Education: GfsilsuoEpmzamyzr12/29/2021Visit Plan:R63.0-783.0 Anorexia Ongoing lack of appetite for solid foods for several weeks, denies difficulties managing fluids-drank entire bottle of carbonated water during visit advised to continue to try small, more frequent food intake, discussed limiting carbonated beverages as this may make her feel full taking away appetite discussed benefits of [employer]. note weight remain relatively stable over the past couple months-will continue to monitor E11.42-250.60 Type 2 diabetes mellitus with peripheral neuropathy ranging 103-126, Metformin 1000mg BID - received new monitor Harshil Mann-participant of [employer] - 10/29/2020 hgb A1C 5.6 10/17/2019 Incoente Soares7/10-instructed on good daily foot care routine follow up with Dr. Gonzales, podiatry-diabetic shoes op hthalmology confirms visit, but doesn't remember when 01/01/2020 [...] anxiety and depressed mood routine follow up [place] [facility] [place] 08/19/2020 PHQ 9 Scoere 1, admits to [...] new appt for pap in June 2020-[facility]- reports pap negative-records requested Z01.89-V72.85 Encounter for screening for tobacco use 12/31/2020 Tobacco screen complete-patient denies ever smoking Z12.31-V76.12 (Z12.31-V76.12) Encounter for screening mammogram for malignant neoplasm of breast Z12.11-V76.51 (Z12.11-V76.51) Encounter for screening for malignant neoplasm of colon Preventative testing not indicated due toage *I reviewed the most recent CDC guidelines regarding Covid-19/Coronavirus with the patient/caregiver/designee 01/13/2021ppointment: Anna Culver WPtel: [phone] [id number] USETV01/13/2021atient Education: Patient Medication HumdxalRidnccoxz98/13/2021 Patient Education: MjgrtvvnUoeuyined36/13/2021atient Education: Hypertension Luxfjwito15/13/2021Visit Plan:R63.0-783.0 Anorexia Ongoing lack of appetite for solid foods for several weeks, denies difficulties managing fluids-drank entire bottle of carbonated water during visit advised to continue to try small, more frequent food intake, discussed limiting carbonated beverages as this may make her feel full taking away appetite discussed benefits of [place] [employer]. note weight remain relatively stable over the past couple months-will continue to monitor E11.42-250.60 Type 2 diabetes mellitus with peripheral neuropathy testing BID and PRN if feeling symptomatic hasn't been testing since right wrist surgery (right side dominant) patient reports feeling symptomatic for BS >100, ranging 103-126, believes elevation may be result lof snack Metformin 1000mg BID - received new monitor [employer] through [employer], [employer]-participant of [employer] - 10/29/2020 hgb A1C 5.6 10/17/2019 Perry Fany 7/10- instructed on good daily foot care routine follow up with Dr. Gonzales, podiatry- diabetic shoes ophthalmology confirms visit, but doesn't remember when 01/01/2020 FRA complete denies fall 01/01/2020 Functional Assessment complete I10-401.9 Essential (primary) hypertension I11.0-402.91 Hypertensive heart disease with heart failure cont hctz and lisinipril 09/24/2021 GFR 81 05/14/2020 EKG NSR OVN SpO2 <88% greater than 7 minutes [...] 12/22/2020, if tolerated will have implant surgery 1 K21.9-530.81 GERD (gastroesophageal reflux disease) trial [...] anxiety and depressed mood routine follow up [place] [facility] [place] 08/19/2020 PHQ 9 Scoere 1, admits to [...] new appt for pap in June 2020-[facility]-reports pap negative-records requested Z01.89-V72.85 Encounter for screening for tobacco use Tobacco screen complete-patient denies ever smoking Z12.31-V76.12 (Z12.31-V76.12) Encounter for screening mammogram for malignant neoplasm of breast Z12.11-V76.51 (Z12.11- V76.51) Encounter for screening for malignant neoplasm of colon Preventative testing not indicated due to age *I reviewed the most recent CDC guidelines regarding Covid-19/Coronavirus with the patient/caregiver/designee 12/17/2020ppointment: Anna Culver WPtel: [address] [place], [place] [id number] Education: Patient Medication IwkvudzDpnemjkko79/17/2021 Patient Education: NbockzwblckePwphxubxz49/17/2021Patient Education: Diabetes Krctkdmqj64/17/2021Visit Plan:patient with access to I phone able to participate in visual and audio telehealth visit T23.191D-V58.89 Superficial burn of multiple sites of right hand, subsequent encounter Reviewed ER notes from [facility] 11/26/20 Superfical burn among dorsal side of right hand, digits 3 to 5. Patient is keeping moist with triple atb cream. Skin is very light pink and intact with no apparent drainage. Discussed skin care, may apply non- adherant sterile gauze if skin blisters E11.42-250.60 Type 2 diabetes mellitus with peripheral neuropathy testing BID and PRN if feeling symptomatic hasn't been testing since right wrist surgery (right side dominant) patient reports feeling symptomatic for BS >100, ranging 100-118, RBS per patient 119 this morning, denies symptomatic Metformin 1000mg BID - received new monitor [employer] through [employer]-participant of [employer] - 10/29/2020 hgb A1C 5.6 2019 Perry Fany 7/10-instructed on good daily foot care routine follow up with Dr. Gonzales, podiatry-diabetic shoe received ophthalmology confirms visit, but doesn't remember when 01/01/2020 FRA complete denies fall 01/01/2020 Functional Assessment complete I10-401.9 Essential (primary) hypertension I11.0- 402.91 Hypertensive heart disease with heart failure cont hctz and lisinipril 09/24/2021 GFR 81 05/14/2020 EKG NSR 05/14/2020 OVN SpO2 <88% greater than 7 minutes Echocardiogram DOS 07/02/2020 Norrmal LVSF, EF 60% N18.2-585.2 Chronic kidney disease, stage 2 (mild) avoid nephro toxic drugs,10/29/2020 GFR 95 09/24/2021 GFR 81 Patient denies [...] anxiety and depressed mood routine follow up [place] [facility] [place] 08/19/2020 PHQ 9 Scoere 1, admits to [...] to right wrist- Dr. Tee Shahid, hand materials specialist, outpatient surgery 10/09/2019 for arthoscopic exam [...] new appt for pap in June 2020-[facility]-reportspap negative-records requested Z01.89- V72.85 Encounter for screening [...] visit verbalized understanding of all above topics. 1Appointment: Chivo Bishop WPtel: [address] [place], [place] [id number] USETV1Patient Education: Patient Medication AmbothcYizoyohte97/26/2021 Visit Plan:patient with access to I phone able to participate in visual and audio telehealth visit E11.51-136.60 Type 2 diabetes mellitus with peripheral neuropathy testing BID and PRN if feeling symptomatic hasn't been testing since right wrist surgery (right side dominant) patient reports feeling symptomatic for BS >100, ranging 100-118, RBS per patient 104, denies symptomatic Metformin 1000mg BID - received new monitor [employer] through [employer]-participant of [employer] -will send all diabetic supplies to patient 10/29/2020 hgb A1C 5.6 10/17/2019 Inocente Soares 04/11-instructed on good daily foot care routine follow up with Dr. Gonzales, podiatry-diabetic shoe received ophthalmology confirms visit, but doesn't remember when 01/01/2020 FRA complete denies fall 01/01/2020 Functional Assessment complete I10-401.9 Essential (primary) hypertension I11.0- 402.91 Hypertensive heart disease with heart failure cont [...] anxiety and depressed mood routine follow up [place] [facility] [place] 08/19/2020 PHQ 9 Scoere 1, admits to [...] to right wrist- Dr. Tee Shahid, hand materials specialist, outpatient surgery 10/09/2019 for arthoscopic exam [...] new appt for pap in June 2020-[facility]-reportspap negative-records requested Z01.89- V72.85 Encounter for screening [...] visit verbalized understanding of all above topics. 11/24/2020ppointment: Anna Culver WPtel: [address] [place] [address] USETV11/24/2020atient Education: Patient Medication LiztdvfLuarmhhcb12/22/2021 Patient Education: NvooguztFodytonke18/22/2021atient Education: Hypertension Rhrhzofhw45/22/2021ppointment: Anna Culver WPtel: [address] [address] [id number] Education: Patient Medication FkvkolcFbjhrxsmy81/27/2021 Patient Education: BpxcjmgfeoyuXbprjarwk98/27/2021atient Education: Diabetes Yrbthxrzg97/27/2021atient Education: Patient Medication SummaryCompleted 1Patient Education: Patient Medication PsvlxchYxghirijr23/30/2020Visit Plan:R82.90-791.9 Abnormal urine finding UA dipstick +leukocytes and trace non hemolyzed blood, will send urine for UA reflex to molecular M25.531-719.43 Right wrist pain routine follow up with Dr Watson-orthopedics last appt 07/14/2020 quit outpatient PT as didn't feel it was helpful MRI with contrast per orthopedics completed 06/30/2020- per patiet revealed torn ligament to right wrist-record requested Dr. Tee Shahid, hand materials specialist, outpatient surgery planned 10/09/2019 E11.42-250.60 Type 2 diabetes mellitus with peripheral neuropathy testing BID and PRN if feeling symptomatic 89-105, patient reports feeling symptomatic for BS >100, RBS 103 Metformin 1000mg BID - received new monitor [employer] through [employer]-participant of [employer] -will send all diabetic supplies to patient 04/14/2020 hemoglobin 5.6 10/17/2019 Hemoglobin A1C 6.0 07/04/2019 Hgb A1C 5.6 10/17/2019 Perry Fany 710-instructed on good daily foot care [...] anxiety and depressed mood routine follow up [place] [facility] [place] 08/19/2020 PHQ 9 Scoere 1, admits to [...] appt for pap in June 2020- [facility]-reports pap negative-records requested Z01.89-V72.85 Encounter for screening [...] visit verbalized understanding of all above topics. 09/24/2020Appointment: Anna Culver WPtel: [address] [place], [place] [id number]/25/2019Patient Education: Patient Medication ErqktcoItcseksle80/23/2020 Patient Education: KwbsnydHnggfcwdf69/23/2020Visit Plan:M25.531-719.43 Right wrist pain routine follow up with Dr Watson-orthopedics last appt 07/14/2020-rec ord requested quit outpatient PT as didn't feel it was helpful MRI with contrast per orthopedics completed 06/30/2020- per patiet revealed torn ligament to right wrist-record requested in process of being referred to hand materials specialist-will send information when available E11.42-250.60 Type 2 diabetes mellitus with peripheral neuropathy testing BID and PRN if feeling symptomatic 89-125, patient reports feeling symptomatic for BS >100, Metformin increased to 1000mg BID -not started yet-won't start until new med pack received (09/11/2020 received new monitor [employer] through [employer]-participant of [employer] - will send [...] anxiety and depressed mood routine follow up [place] [facility] [place] 08/19/2020 PHQ 9 Scoere 1, admits to [...] feeling light headed Z13.9-V82.9 Encounter for screening, bogkjpxnclg97/6/2020 Maltreatment assessment complete- patient denies any form of abuse or neglect Z68.43-V85.43 Adult BMI 50.0-59.9 kg/sq continues to loose weight trying to avoid soda, drinking sparkling flavor ed pal and occasional Heike Green Tea and honey Z12.4-V76.2 Encounter for screening for malignant neoplasm of cervix last pap January 2019 new appt for pap in June 2020-[facility]-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 08/26/2020Appointment: Anna Culver WPtel: [address] [address] USETV110/26/2019Patient Education: Patient Medication RcsetsdXgzmvsfme22/24/2020 Patient Education: LxqqooekaswtFrttflbus54/24/2020Patient Education: Diabetes Uggpyvbtl17/24/2020Visit Plan:M25.531-719.43 Right wrist pain routine follow up with Dr Watson-orthopedics last appt 07/14/2020-record requested quit outpatient PT as didn't feel it was helpful MRI with contrast per orthopedics completed 06/30/2020- per patiet revealed torn ligament to right wrist-record requested in process of being referred to hand materials specialist-will send information when available E11.42-250.60 Type 2 diabetes mellitus with peripheral neuropathy testing BID and PRN if feeling symptomatic 125-132 patient reports feeling symptomatic for BS >100, Metformin increased to 1000mg BID received new monitor [employer] through [employer]-participant of [employer] -will send all diabetic supplies to patient 04/14/2020 hemoglobin 5.6 10/17/2019 Hemoglobin A1C 6.0 07/04/2019 Hgb A1C 5.6 10/17/2019 Perry Fany 04/11-instructed on good daily foot care [...] anxiety and depressed mood routine follow up [place] [facility] [place] 08/19/2020 PHQ 9 Scoere 1, admits to [...] feeling light headed Z13.9-V82.9 Encounter for screening, xfgfvhbirqd45/6/2020 Maltreatment assessment complete- patient denies any form of abuse or neglect Z68.43-V85.43 Adult BMI 50.0-59.9 kg/sq continues to loose weight trying to avoid soda, drinking sparkling flavor ed pal and occasional [employer] Green Tea and honey Z12.4-V76.2 Encounter for screening for malignant neoplasm of cervix last pap January 2019 new appt for pap in June 2020-[facility]-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 08/19/2020Appointment: Anna Culver WPtel: [address] [place] [address] [place], [place] [address] USETV110/19/2019Patient Education: Patient Medication QdgnqdfPqiqbtljg07/17/2020 Patient Education: EjdxpbdbucuwEupciczej26/17/2020Patient Education: Diabetes Bghebbmtd42/17/2020Visit Plan:M25.531-719.43 Right wrist pain routine follow up with Dr Watson-orthopedics next appt 07/14/2020 quit outpatient PT as didn't feel it was helpful MRI with contrast per orthopedics completed 06/30/2020E11.42- 250.60 Type 2 diabetes mellitus with peripheral neuropathy testing BID and PRN if feeling symptomatic 92-159 patient reports feeling symptomatic for BS >100, prefers to remain mid 80's-99 in the morning and prefers to stay <119 Metformin 500mg BID may increase in 2 weeks if BS remain elevated received new monitor [employer]otel through [employer]-participant of [employer], [employer] on demand -will send all diabetic supplies to patient 04/14/2020 hemoglobin 5.6 10/17/2019 Hemoglobin A1C 6.0 07/04/2019 Hgb A1C 5.6 10/17/2019 Perry Fany 04/11-instructed on good daily foot care [...] anxiety and depressed mood routine follow up [place] [facility] [place] E03.9-244.9 Hypothyroidism, unspecified cont levothyroxine E78.5-272.4 Hyperlipidemia, [...] new appt for pap in June 2020-[facility]-reports pap negative-records requested Z01.89-V72.85 Encounter for screening [...] visit verbalized understanding of all above topics. 07/22/2020Appointment: Anna Culver WPtel: [address] [place], [place] [id number] USETV1Patient Education: Patient Medication KmhogcoTuzmemauc27/20/2020 Visit Plan:M25.531-719.43 Right wrist pain routine follow up with Dr Watson- orthopedics next appt 07/14/2020 quit outpatient PT as didn't feel it was helpful MRI with contrast per orthopedics completed 06/30/2020E11.42-250.60 Type 2 diabetes mellitus with peripheral neuropathy testing BID and PRN if feeling symptomatic 123-159, patient reports feeling symptomatic for BS >100, prefers to remain mid 80's-99in the morning and prefers to stay <119 will increase Metformin 500mg BID received new monitor [employer] through [employer], Part of [employer]-participant of [facility] on demand -will send all diabetic supplies to patient 04/14/2020 hemoglobin 5.6 10/17/2019 Hemoglobin A1C 6.0 07/04/2019 Hgb A1C 5.6 10/17/2019 Perry Fany 04/11-instructed on good daily foot care [...] anxiety and depressed mood routine follow up [facility] E03.9-244.9 Hypothyroidism, unspecified cont levothyroxine E78.5-272.4 Hyperlipidemia, [...] new appt for pap in June 2020-[facility]-reports pap negative-records requested Z01.89-V72.85 Encounter for screening [...] visit verbalized understanding of all above topics. 07/08/2020Appointment: Anna Culver WPtel: [address] [facility] [address] [facility] [id number] Education: Patient Medication YjczeshRuwvimixg37/06/2020 Patient Education: VzguyxqgIlhlgfmba72/06/2020Patient Education: Hypertension Zzqiltnce35/06/2020Appointment: Gianna Birmingham MCtel: [address] [facility] [address] VynrtinWD[address] NEMAEA4307/02/2020Visit Plan:M25.531-719.43 Right wrist pain patient complaining of chronic [...] A1C 6.0 07/04/2019 Hgb A1C 5.6 10/17/2019 Perry Fany 04/11-instructed on good daily foot care [...] anxiety and depressed mood routine follow up [place] [facility] [place] labs orderedresults pending E03.9-244.9 Hypothyroidism, unspecified cont [...] new appt for pap in June 2020-[facility]-reports pap negative-records requested Z01.89-V72.85 Encounter for screening [...] visit verbalized understanding of all above topics. 06/11/2020Appointment: Anna Culver WPtel: [address] [place], [place] [phone] [id number] Education: Patient Medication NvyyjqnGqvwaasoz70/09/2020 Patient Education: XhwcoklawrglQomijwdwv86/09/2020Patient Education: Diabetes Qownirhps88/09/2020Patient Education: AcweudqUoutwvqij38/09/2020Visit Plan: M25.531-719.43 Right wrist pain patient complaining of chronic pain to right wrist, denies known injury-routine follow up with Dr Watson-orthopedics quit outpatient PT as didn't feel it was helpful E11.42-250.60 Type 2 diabetes mellitus with peripheral neuropathy testing daily, at varied times -972, patient reports feeling symptomatic for BS <100, will add second testing PRN for symptoms 04/14/2020 hemoglobin 5.6 10/17/2019 Hemoglobin A1C 6.0 07/04/2019 Hgb A1C 5.6 10/17/2019 Perry Fany 04/11-instructed on good daily foot care [...] anxiety and depressed mood routine follow up [place] [facility] [place] E03.9-244.9 Hypothyroidism, unspecified cont levothyroxine N39.46-788.33 Mixed [...] visit verbalized understanding of all above topics. 05/14/2020Appointment: Anna Culver WPtel: [address] [place], [place] [phone] [id number] Education: Patient Medication CpcauqzWewqfgush74/12/2020 Patient Education: CrdemxdbSvqslysmg46/12/2020Patient Education: Hypertension Zknwfxvgd63/12/2020Care Plan: Overnight Pulse ycHvjprkv96/12/2020Visit Plan: E11.42-250.60 Type 2 diabetes mellitus with [...] appointment 06/2020 G47.33-327.23Obstructive sleep apnea (adult) (pediatric) J45.640-493.90 Asthma continue inhalers and nebulizer wears cpap every night, believes that is helpful Dr. Garcia, pulmonology for chronic sleep apnea and asthma-audio visit last week Cpap pressuresetting increased to 12-request records F43.23-309.28 Adjustment disorder with mixed anxiety and depressed mood routine follow up [place] [facility] [place] E03.9-244.9 Hypothyroidism, unspecified cont levothyroxine N39.46-788.33 Mixed [...] visit verbalized understanding of all above topics. 04/17/2020Appointment: Anna Culver WPtel: [address] [address] [id number] Education: Patient Medication UrmocgiMjivmafqj35/16/2020 Patient Education: CixogbahtwsqXirdjyopm74/16/2020Patient Education: Diabetes Eishmrhbh10/16/2020Patient Education: Patient Medication SummaryCompleted 04/13/2020Visit Plan:E11.42-250.60 Type 2 diabetes mellitus with peripheral neuropathy testing daily, at varied times range 76-153, elevated BS was in the evening, isolated incident usually stays under 134 patient reports need to send BS results to [facility] for review 10/17/2019 Hemoglobin A1C 6.0 07/04/2019 [...] anxiety and depressed mood routine follow up [place] [facility] [place] E03.9-244.9 Hypothyroidism, unspecified cont levothyroxine N39.46-788.33 Mixed [...] visit verbalized understanding of all above topics. 03/21/2020Appointment: Anna Culver WPtel: [address] [place], [place] [id number] Education: Patient Medication HktxxuvJizuyyywy78/19/2020 Patient Education: XkhjozgzgpzcWzzhfvown93/19/2020Patient Education: Diabetes Ohqxhtizq98/19/2020Patient Education: IuwadpuFmrricdfl19/19/2020Visit Plan: patient with I phone able to participate in visual and audio telehealth visit S90.705A-917.0 Abrasion of toe caused by toe rubbing on flip flop advised to monitor due to risk of complications secondary to DM and parathesis R55-780.2 Syncope and collapse denies any recent episodes advise to check BSwhen feeling light headed E11.42-250.60 Type 2 diabetes mellitus with peripheral neuropathy tries to keep BS around 90-varied times of the day, had to reset smart phone julianna so only has a couple readings, both under 110 10/17/2019 Hemoglobin A1C 6.0 07/04/2019 Hgb A1C 5.6 10/17/2019 Perry Fany 7/10-instructed on good daily foot care [...] anxiety and depressed mood routine follow up [place] [facility] [place] E03.9-244.9 Hypothyroidism, unspecified cont levothyroxine N39.46-788.33 Mixed incontinence use of incontinence supplies Z68.43-V85.43 Adult BMI 50.0-59.9 kg/sq m Video Surveillance Technician to visit to discuss portion control trying to avoid soda, drinking sparkling flavored pal and occasional Heike Green Tea and honey Z12.4-V76.2 Encounter for screening for malignant neoplasm of cervix last [id number] will request records Z01.89-V72.85 Encounter for screening [...] visit verbalized understanding of all above topics. 02/14/2020Appointment: Anna Culver WPtel: [address] [place] [address] [place], [place] [phone] [id number] Education: Patient Medication YnmpiqxUytvnhhbt30/14/2020 Patient Education: ZenvbfelysgkYbaseynat83/14/2020Patient Education: Diabetes Esumemfzt87/14/2020Visit Plan:patient with I phone able to participate in visual and audio telehealth visit J69-137.2 Syncope andcollapse denies any recent episodes advise to check BS when feeling light headed E11.42-250.60 Type2 diabetes mellitus with peripheral neuropathy range 89-120, [...] mixed anxiety and depressedmood routine follow up [place] [facility] [place] E03.9-244.9 Hypothyroidism, unspecified cont levothyroxi ne N39.46-788.33 Mixed incontinence use of incontinence supplies Z68.43-V85.43 Adult BMI 50.0-59.9 kg/sq m Video Surveillance Technician to visit to discuss portion control trying to avoid soda, drinking sparkling flavored pal and occasional Heike Green Tea and honey H10.029-372.03 [facility]-resolved ophthalmicointment received today advised to avoid touches her face or eyes and need to wash hands ysapstxiwsB69.89-V72.85 Encounter for screening for tobacco use Tobacco [...] visit verbalized understanding of all above topics. 01/24/2020Appointment: Anna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 [place]; E78.2 Hyperlipidemia, mixed patient has re-started atorvastatin continue Mediterranean style eating; E55.9 Vitamin D deficiency continue cholecalciferol refill sent 05/04/2023. Visit time spent involved in medical discussion with patient, including obtaining history from patient, systems review, diagnostic and laboratory test review with patient. Assessment findings and plan reviewed with patient, including time to provide counseling, and education to patient I11.9-402.90 Hypertensive heart disease BP stable, no edema, will continue lisinopril, HCTZ; continue with [facility] Josh Simon MD; G47.33 Obstructive sleep apnea (adult), J45.909 Asthma breathing stable, continue utilization of Symbicort, albuterol via neb. or MDI q 4 hrs. prn dyspnea, tolerating CPAP for a few hours nightly continue with Ob Gyn Physician Assistant Jose BOWMAN; K21.9 GERD (gastroesophageal reflux disease) symptoms improved, will continue omeprazole to 40mg at HS, continue famotidine, probiotic; E11.42 Type 2 diabetes mellitus with peripheral neuropathy, Z68.43 Adult BMI 50.0-59.9 kg/sq m testing BS bid, range 99-133 continue Ozempic 1mg per week and gabapentin; continue with Kerrie Pandya OD at [facility] trying to be more active, has step goal of 4000 steps daily, also limiting soda intake G47.00-780.52 Insomnia; F33.9-296.30 Major depression, recurrent started on trazodone 50mg by Nichole Hernández, psychology for sleep issues; patient feels sleep and mood much improved with this medication continue taking sertraline, buspirone; Rexulti continue with [facility] in [place]; E78.2 Hyperlipidemia, mixed patient has re-started atorvastatin continue Mediterranean style eating; E55.9 Vitamin D deficiency continue cholecalciferol refill sent 01/27/2023will stratify as moderate risk and plan follow up visit in 6 [...] min. < 89% SpO2; continue with [facility] Josh Simon MD; G47.33 Obstructive sleep apnea (adult), J45.909 Asthma breathing stable, continue utilization of Symbicort, albuterol via neb. or MDI q 4 hrs. prn dyspnea, CPAP use continues nightly continue with Ob Gyn Physician Assistant Jose BOWMAN; K21.9 GERD (gastroesophageal reflux disease) [...] gabapentin; continue with Kerrie Pandya OD at [facility] (06/30/21); F33.9-296.30 Major depression, recurrent 11/23/2021 PHQ 9 Score 0 continue taking sertraline, buspirone; Rexulti continue with [facility] in [place]; canceled visit this month, next December 2021 [...] 01/05/21 urinary stimulator implant continue with Urologist; 11/23/2022will stratify as moderate risk and plan follow up visit in 6 [...] min. < 89% SpO2; continue with [facility] Josh Simon MD; will check labs this visit G47.33 Obstructive sleep apnea (adult), J45.909 Asthma breathing stable, continue utilization of Symbicort, albuterol via neb. or MDI q 4 hrs. prn dyspnea, CPAP use continues nightly continue with Ob Gyn Physician Assistant Jose BOWMAN; last visit 05/31/2022 E11.42 Type 2 diabetes mellitus with peripheral neuropathy, Z68.43 Adult BMI 50.0-59.9 kg/sq m stable glucose monitor - testing bid; FBS 115, trying to get closer to 100 continue Ozempic 1mg per week and gabapentin; 06/23/2022 Hgb A1C 5.8, GFR 94; continue with Kerrie Pandya OD at [facility] (06/30/21); note 3 pound weight gain, admits to eating more over the holidays, continues to be active and motivated to lose weight, encouraged to limit carbs will check labs this visit F33.9-296.30 Major depression, recurrent continue taking sertraline, buspirone; Seroquel complete and has been replaced with Rexulti continue with [facility] in [place]; will check labs this visit S61.A-883.0 Open wound of right middle finger 2022 [...] diclogenac top gel 1% qid prn arthralgia/myalgia; 2022will stratify as moderate risk and plan follow up visit in 6 weeks. Patient aware and agreeable with plan . I10 Essential (primary) hypertension, BP stable, will continue lisinopril, HCTZ; 07/02/20 Echo: EF 60%, mild conc. LVH; 05/14/20 EKG: NSR; 05/14/20 Noct. Pulse Ox.: 7 min. < 89% SpO2; continue with [facility] Josh Simon MD; G47.33 Obstructive sleep apnea (adult), J45.909 Asthma breathing stable CPAP use continues-was changed to nasal pillow mask at last pulmonogy visit, patient feels this hasbeen helpful continue utilization of Symbicort, albuterol via neb. or MDI q 4 hrs. prn dyspnea, continue with Ob Gyn Physician Assistant Jose BOWMAN; last visit 05/31/2022-visit note reviewed previously E11.42 Type 2 diabetes mellitus with peripheral neuropathy, Z68.43 Adult BMI 50.0-59.9 kg/sq m stable glucose monitor range 99-143 - testing bid; FBS 102 this morning continue Ozempic 1mg per week and gabapentin; 06/23/2022 Hgb A1C 5.8, GFR 94; 11/02/21 HgbA1C 5.6, GFR >100; continue with Kerrie Pandya OD at [facility] (06/30/21); Discussed benefits of weight loss [...] has been replaced with Rexulti continue with [facility] in [place]; B36.9-111.9 Fungal infection of skin inner left [...] diclogenac top gel 1% qid prn arthralgia/myalgia; 08/17/2022will stratify as moderate risk rising and plan follow up visit in 4 weeks. Patient aware and agreeable with plan . I10 Essential (primary) hypertension, BP stable, will continue lisinopril, HCTZ; 07/02/20 Echo: EF 60%, mild conc. LVH; 05/14/20 EKG: NSR; 05/14/20 Noct. Pulse Ox.: 7 min. < 89% SpO2; continue with [facility] Josh Simon MD; will check labs this visit G47.33 Obstructive sleep apnea (adult), J45.909 Asthma breathing stable CPAP use continues-was changed to nasal pillow mask at last pulmonogy visit, patient feels this hasbeen helpful continue utilization of Symbicort, albuterol via neb. or MDI q 4 hrs. prn dyspnea, continue with Ob Gyn Physician Assistant Jose BOWMAN; last visit 05/31/2022-visit note reviewed E11.42 Type 2 diabetes mellitus with peripheral neuropathy, Z68.43 Adult BMI 50.0-59.9 kg/sq m stable glucose monitor range 103-156 - testing bid; continue Ozempic 1mg per week and gabapentin; 11/02/21 HgbA1C 5.6, GFR >100; continue with Kerrie Pandya OD at [facility] (06/30/21); discussed apps on her phone [...] has been replaced with Rexulti continue with [facility] in [place]; Z28.21-V64.06 Influenza vaccine refused refused influenza vaccine, [...] 5 times per day; continue with Urologist; 06/23/2022. I10 Essential (primary) hypertension, BP within goal; continue lisinopril, HCTZ; 07/02/20 Echo: EF 60%, mild conc. LVH; 05/14/20 EKG: NSR; 05/14/20 Noct. Pulse Ox.: 7 min. < 89% SpO2; continue with [facility] Josh Simon MD; E11.42 Type 2 diabetes mellitus with peripheral neuropathy, Z68.43 Adult BMI 50.0-59.9 kg/sq m glucose controlled, however body weight remains an issue; glucose monitor averaging 100s-130s - bid; increase Ozempic to maximum: 1mg per week, continue gabapentin; 11/02/21 HgbA1C 5.6, GFR >100; continue with Kerrie Pandya OD at [facility] (06/30/21); encouraged to increase daily step [...] to assist with weight loss; continue with [facility] in [place]; Below historical items not addressed this visit: Z00.00-V70.9 (Z00.00-V70.) Encounter for general adult medical examination without abnormal findings 02/11/22 AWV complete G47.33 Obstructive sleep apnea (adult), J45.909 Asthma breathing stable CPAP use encouraged but pt seems uncertain of benefit; continue utilization of Symbicort, albuterol via neb. or MDI q 4 hrs. prn dyspnea, continue with Ob Gyn Physician Assistant Jose BOWMAN; E03.9 Hypothyroidism continue levothyroxine; 11/02/21 [...] 5 times per day; continue with Urologist; 2Assessment and plan reviewed. . The following plan consists of chronic [...] min. < 89% SpO2; continue with [facility] Josh Simon MD; E11.42 Type 2 diabetes mellitus with peripheral neuropathy, Z68.43 Adult BMI 50.0-59.9 kg/sq m glucose monitor 100s-120s - bid; Ozempic 0.5mg per week, gabapentin; 11/02/21 HgbA1C 5.6, GFR >100; continue with Kerrie Pandya OD at [facility] (06/30/21); encourage to continue with Dr. [...] recheck of Noct. Pulse. Ox; continue with Ob Gyn Physician Assistant Jose BOWMAN; E03.9 Hypothyroidism continue levothyroxine; 11/02/21 [...] mood continue taking sertraline, buspirone; continue with [facility] in [place]; N39.46 Mixed incontinence, R33.9 Urinary retention with incomplete bladder emptying; Z98.890-V45.89History of bladder surgery Myrbetriq qd; use of incontinence supplies; 01/05/21 urinary stimulator implant - symptoms improved, urinating ~ 5 times per day; continue with Urologist; J30.9 Allergic rhinitis cetirizine, montelukast; 12/03/2021. R19.7-787.91 Diarrhea has resolved following change from [...] notify office for persistent or worsening symptoms 2Assessment and plan reviewed with patient ? . Video and audio call using [employer] R10.7-101.02 Diarrhea intermittent symptoms over the past few [...] to this medication uses monitor [employer] through [employer]-participant of [employer] on demand 05/20/2021 Hemoglobin A1C 5.4; stable 10/17/2019 Perry Fany 7/10-instructed on good daily foot care [...] previously discussed stress management routine follow up [place] at [place] 03/13/2021 PHQ 9 Score 4 Sertraline 200mg daily 04/01/2021 Functional Assessment independent with ADLs R63.0-783.0 Anorexia consuming 1 -2 meals per day advised to continue to try small, more frequent food intake, discussed limiting carbonated beverages discussed benefits of [employer] not using note weight has [...] cervix most recent pap in June 2020-[facility]-reports pap negative Z01.89-V72.85 Encounter for screening for tobacco use 03/13/2021 Tobacco screen complete-patient denies ever smoking Z12.31-V76.12 (Z12.31-V76.12) Encounter for screening mammogram for malignant neoplasm of breast Z12.11-V76.51 (Z12.11-V76.51) Encounter for screening for malignant neoplasm of colon Preventative testing not indicated due to age *I reviewed the most recent CDC guidelines regarding Covid-19/Coronavirus with the patient/caregiver/designee 08/13/2021ssessment and plan reviewed with patient ? . Video and audio call using [employer] U07.1-230.90 COVID-19 virus RNA test result positive at [...] Hemoglobin A1C 5.4; stable 10/17/2019 Inocente Soares 7/10-instructed on good daily [...] previously discussed stress management routine follow up [place] at [place] 03/13/2021 PHQ 9 Score 4 Sertraline 200mg daily 04/01/2021 Functional Assessment independent with ADLs R63.0-783.0 Anorexia consuming 1 -2 meals per day advised to continue to try small, more frequent food intake, discussed limiting carbonated beverages as this may make her feel full taking away appetite discussed benefits of [employer] not using note weight has remained stable over the past couple months-will continue to monitor I10-401.9 Essential (primary) hypertension I11.0-402.91 Hypertensive heart disease with heart failure cont hctz and lisinopril 04/01/2021 HTN assessment complete discussed lifestyle modification including weight loss and limiting sodium intake 05/20/2021 GFR >60 [place] lab didn't provide exact number 05/14/2020 EKG [...] new appt for pap in June 2020-[facility]-reports pap negative Z01.89-V72.85 Encounter for screening for tobacco use 03/13/2021 Tobacco screen complete-patient denies ever smoking Z12.31-V76.12 (Z12.31-V76.12) Encounter for screening mammogram for malignant neoplasm of breast Z12.11-V76.51 (Z12.11-V76.51) Encounter for screening for malignant neoplasm of colon Preventative testing not indicated due to age *I reviewed the most recent CDC guidelines regarding Covid-19/Coronavirus with the patient/caregiver/designee 07/06/2021ssessment and plan reviewed with patient ? . Video and audio call using [employer] U07.1-165.89 COVID-19 virus RNA test result positive at [...] adjustments to this medication received new monitor [employer] through [employer]-participant of [employer] - 05/20/2021 Hemoglobin A1C 5.4; stable 10/17/2019 Perry Fany 7/10-instructed on good daily foot care [...] diabetes mellitus labs to be drawn at [facility] - has appt 06/09/2021 advised to notify office for persistent or worsening symptoms F43.23-309.28 Adjustment disorder with mixed anxiety and depressed mood reviewed previously discussed stress management routine follow up [place] at [place] 03/13/2021 PHQ 9 Score 4 Sertraline 200mg daily 04/01/2021 Functional Assessment independent with ADLs R63.0-783.0 Anorexia symptoms persistent advised to continue to try small, more frequent food intake, discussed limiting carbonated beverages as this may make her feel full taking away appetite discussed benefits of [employer] not using note weight has remained stable over the past couple months-will continue to monitor I10-401.9 Essential (primary) hypertension I11.0-402.91 Hypertensive heart disease with heart failure cont hctz and lisinipril 04/01/2021 HTN assessment complete discussed lifestyle modification including weight loss and limiting sodium intake 05/20/2021 GFR >60 [place] lab didn't provide exact number 05/14/2020 EKG [...] new appt for pap in June 2020-[facility]-reports pap negative Z01.89-V72.85 Encounter for screening for tobacco use 03/13/2021 Tobacco screen complete-patient denies ever smoking Z12.31-V76.12 (Z12.31-V76.12) Encounter for screening mammogram for malignant neoplasm of breast Z12.11-V76.51 (Z12.11-V76.51) Encounter for screening for malignant neoplasm of colon Preventative testing not indicated due to age *I reviewed the most recent CDC guidelines regarding Covid-19/Coronavirus with the patient/caregiver/designee 06/10/2021ssessment and plan reviewed with patient ? . Video and audio call using [employer] J06.9-465.9 Upper respiratory infection prescription for sudafed [...] - 05/20/2021 Hemoglobin A1C 5.4; stable 10/17/2019 Perry Fany 7/10-instructed on good daily foot care [...] diabetes mellitus labs to be drawn at [facility] - has appt 06/09/2021 advised to notify office for persistent or worsening symptoms F43.23-309.28 Adjustment disorder with mixed anxiety and depressed mood reviewed previously discussed stress management routine follow up [place] at [place] 03/13/2021 PHQ 9 Score 4 Sertraline 200mg daily 04/01/2021 Functional Assessment independent with ADLs R63.0-783.0 Anorexia symptoms persistent advised to continue to try small, more frequent food intake, discussed limiting carbonated beverages as this may make her feel full taking away appetite discussed benefits of [employer] not using note weight has remained stable over the past couple months-will continue to monitor I10-401.9 Essential (primary) hypertension I11.0-402.91 Hypertensive heart disease with heart failure cont hctz and lisinipril 04/01/2021 HTN assessment complete discussed lifestyle modification including weight loss and limiting sodium intake 05/20/2021 GFR >60 [place] lab didn't provide exact number 05/14/2020 EKG [...] new appt for pap in June 2020-[facility]-reports pap negative-recordsrequested Z01.89-V72.85 Encounter for screening for tobacco use 03/13/2021 Tobacco screen complete-patient denies ever smoking Z12.31-V76.12 (Z12.31-V76.12) Encounter for screening mammogram for malignant neoplasm of breast Z12.11-V76.51 (Z12.11-V76.51) Encounter for screening for malignant neoplasm of colon Preventative testing not indicated due to age *I reviewed the most recent CDC guidelines regarding Covid-19/Coronavirus with the patient/caregiver/designee 06/02/2021ssessment and plan reviewed with patient ? . R55-780.2 Syncope and collapse; Z84.89-V19.8 Family history of seizures remains a concern over the past month, can't confirm, but feels she is having seizure activity, does have family hx of seizures discussed possible causes other than seizure such as stress, cardiac, diabetes mellitus labs to be drawn at [facility] referred to neurology previously - has upcoming visit 05/24/21 advised to notify office for persistent or worsening symptoms F43.23-309.28 Adjustment disorder with mixed anxiety and depressed mood discussed stress management routine follow up [facility] 03/13/2021 PHQ 9 Score 4 Sertraline 200mg daily 04/01/2021 Functional Assessment independent with ADLs R63.0-783.0 Anorexia symptoms persistent advised to continue to try small, more frequent food intake, discussed limiting carbonated beverages as this may make her feel full taking away appetite discussed benefits of [employer] not using note weight has remained stable over the past couple months-will continue to monitor labs performed recently at [facility]- results requested 05/20/21 E11.42-250.60 Type [...] will order labs to be drawn at [facility] E78.5-272.4 Hyperlipidemia, unspecified 01/29/2021 alkaline phos [...] new appt for pap in June 2020-[facility]-reports pap negative-recordsrequested Z01.89-V72.85 Encounter for screening for tobacco use 03/13/2021 Tobacco screen complete-patient denies ever smoking Z12.31-V76.12 (Z12.31-V76.12) Encounter for screening mammogram for malignant neoplasm of breast Z12.11-V76.51 (Z12.11-V76.51) Encounter for screening for malignant neoplasm of colon Preventative testing not indicated due to age *I reviewed the most recent CDC guidelines regarding Covid-19/Coronavirus with the patient/caregiver/designee 05/20/2021ssessment and plan reviewed with patient . F43.23-309.28 Adjustment disorder with mixed anxiety and depressed mood patient having increased stress leading to teeth clenching and zoning out for short periods discussed stress management routine follow up [facility] 03/13/2021 PHQ 9 Score 4 Sertraline increased to 200mg daily 04/01/2021 Functional Assessment independent with ADLs R63.0-783.0 Anorexia symptoms persistent advised to continue to try small, more frequent food intake, discussed limiting carbonated beverages as this may make her feel full taking away appetite discussed benefits of [employer] not using note weight has [...] received new monitor Pablo through [employer]-participant of [employer] - 01/29/2021 Hgb A1C 5.3 [...] new appt for pap in June 2020-[facility]-reports pap negative-recordsrequested Z01.89-V72.85 Encounter for screening for tobacco use 03/13/2021 Tobacco screen complete-patient denies ever smoking Z12.31-V76.12 (Z12.31-V76.12) Encounter for screening mammogram for malignant neoplasm of breast Z12.11-V76.51 (Z12.11-V76.51) Encounter for screening for malignant neoplasm of colon Preventative testing not indicated due to age *I reviewed the most recent CDC guidelines regarding Covid-19/Coronavirus with the patient/caregiver/designee 04/15/2021ssessment and plan reviewed with patient . R63.0-783.0 Anorexia symptoms persistent advised to continue to try small, more frequent food intake, discussed limiting carbonated beverages as this may make her feel full taking away appetite discussed benefits of [employer] not using note weight has [...] adjustments to this medication received new monitor [employer] through [employer]-participant of [employer] - 01/29/2021 Hgb A1C 5.3 [...] anxiety and depressed mood routine follow up [facility] [place] 03/13/2021 PHQ 9 Score 4 Sertraline increased [...] new appt for pap in June 2020-[facility]-reports pap negative-recordsrequested Z01.89-V72.85 Encounter for screening for tobacco use 03/13/2021 Tobacco screen complete-patient denies ever smoking Z12.31-V76.12 (Z12.31-V76.12) Encounter for screening mammogram for malignant neoplasm of breast Z12.11-V76.51 (Z12.11-V76.51) Encounter for screening for malignant neoplasm of colon Preventative testing not indicated due to age *I reviewed the most recent CDC guidelines regarding Covid-19/Coronavirus with the patient/caregiver/designee 04/01/2021ssessment and plan reviewed with patient . Video and audio call using [employer] T13.8UDY-724.2 Blister 3 wounds left 3rd digit secondary [...] full taking away appetite discussed benefits of [employer]. note weight has remained stable [...] anxiety and depressed mood routine follow up [facility] [place] 03/13/2021 PHQ 9 Score 4 Sertraline increased [...] new appt for pap in June 2020-[facility]-reports pap negative-recordsrequested Z01.89-V72.85 Encounter for screening for tobacco use 03/13/2021 Tobacco screen complete-patient denies ever smoking Z12.31-V76.12 (Z12.31-V76.12) Encounter for screening mammogram for malignant neoplasm of breast Z12.11-V76.51 (Z12.11-V76.51) Encounter for screening for malignant neoplasm of colon Preventative testing not indicated due to age *I reviewed the most recent CDC guidelines regarding Covid-19/Coronavirus with the patient/caregiver/designee 03/24/2021ssessment and plan reviewed with patient . Video and audio call using [employer] R63.0-783.0 Anorexia symptoms improving, but persist in the morning encouraged to keep food diary for a couple weeks, will review at next visit advised to continue to try small, more frequent food intake, discussed limiting carbonated beverages as this may make her feel full taking away appetite discussed benefits of [employer]. note weight has remained stable [...] anxiety and depressed mood routine follow up [facility] [place] 03/13/2021 PHQ 9 Score 4 Sertraline increased [...] new appt for pap in June 2020-[facility]-reports pap negative-recordsrequested Z01.89-V72.85 Encounter for screening for tobacco use 03/13/2021 Tobacco screen complete-patient denies ever smoking Z12.31-V76.12 (Z12.31-V76.12) Encounter for screening mammogram for malignant neoplasm of breast Z12.11-V76.51 (Z12.11-V76.51) Encounter for screening for malignant neoplasm of colon Preventative testing not indicated due to age *I reviewed the most recent CDC guidelines regarding Covid-19/Coronavirus with the patient/caregiver/designee 03/13/2021ssessment and plan reviewed with patient . Labs ordered last visit reviewed with patient R63.0-783.0 Anorexia symptoms improving, but persist in the morning encouraged to keep food diary for a couple weeks, will review at next visit advised to continue to try small, more frequent food intake, discussed limiting carbonated beverages as this may make her feel full taking away appetite discussed benefits of [employer]. note weight has remained stable over the past couple months-will continue to monitor E11.42-250.60 Type 2 diabetes mellitus with peripheral neuropathy ranging 94-142 -felt this was isolated, most are staying under 130 Metformin 1000mg BID - elevated liver enzymes noted with last labs, will check labs next month, mayneed to make adjustments to this medication received new monitor [employer] through [employer]-participant of [employer] - 01/29/2021 Hgb A1C 5.3 10/17/2019 Perry Fany 04/11-instructed on good daily foot care [...] anxiety and depressed mood routine follow up [facility] 08/19/2020 PHQ 9 Scoere 1, admits to [...] new appt for pap in June 2020-[facility]-reports pap negative-recordsrequested Z01.89-V72.85 Encounter for screening for tobacco use 12/31/2020 Tobacco screen complete-patient denies ever smoking Z12.31-V76.12 (Z12.31-V76.12) Encounter for screening mammogram for malignant neoplasm of breast Z12.11-V76.51 (Z12.11-V76.51) Encounter for screening for malignant neoplasm of colon Preventative testing not indicated due to age *I reviewed the most recent CDC guidelines regarding Covid-19/Coronavirus with the patient/caregiver/designee 02/11/2021ssessment and plan reviewed with patient . R63.0-783.0 Anorexia Ongoing lack of appetite for solid foods for several weeks, denies difficulties managing fluids-drank entire bottle of carbonated water during visit advised to continue to try small, more frequent food intake, discussed limiting carbonated beverages as this may make her feel full taking away appetite discussed benefits of [employer]. note weight remain relatively stable over the past couple months-will continue to monitor E11.42-250.60 Type 2 diabetes mellitus with peripheral neuropathy ranging 103-126, Metformin 1000mg BID - received new monitor [employer] through [employer]-participant of [employer] - 10/29/2020 hgb A1C 5.6 10/17/2019 Perry Fany 7/10-instructed on good daily foot care [...] anxiety and depressed mood routine follow up [facility] [place] 08/19/2020 PHQ 9 Scoere 1, admits to [...] new appt for pap in June 2020-[facility]-reports pap negative-recordsrequested Z01.89-V72.85 Encounter for screening for tobacco use 12/31/2020 Tobacco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
--- NOTE | 2025-07-29 15:28 | ED.GENADUL1 ---
HPI HPI - General Adult General Chief complaint: Upper Respiratory Infection Stated complaint: COUGH Time Seen by Provider: 07/29/25 13:58 Source: patient Mode of arrival: ambulance Limitations: no limitations History of Present Illness HPI narrative: Presenting to the ER after she was already evaluated last night for shortness of breath and cough was diagnosed with a bronchitis, sending to us because she is not feeling better, she also denies any diarrhea nausea vomiting or any other concerns, but she was worried that she is not urinating as she used to for the last few days although yesterday's blood workup was normal Patient is holding a elizabet bear in her hand have no known past medical history except for diabetes Related Data Home Medications ?Medication ?Instructions ?Recorded ?Confirmed aripiprazole 10 mg tablet 10 mg PO .qhs 11/30/24 07/28/25 atorvastatin 20 mg tablet 20 mg PO .qhs 11/30/24 07/28/25 buspirone 15 mg tablet 15 mg PO QDAY 11/30/24 07/28/25 apple cider vinegar 500 mg tablet 750 mg PO DAILY 07/28/25 07/28/25 cetirizine 10 mg tablet 10 mg PO DAILY 07/28/25 07/28/25 cholecalciferol (vitamin D3) 1,250 1,250 mcg PO DAILY 07/28/25 07/28/25 mcg (50,000 unit) capsule gabapentin 400 mg capsule 400 mg PO TID 07/28/25 07/28/25 hydrochlorothiazide 25 mg tablet 25 mg PO DAILY 07/28/25 07/28/25 hydroxyzine HCl 10 mg tablet 10 mg PO BID PRN itching 07/28/25 07/28/25 lactase 3,000 unit tablet 3,000 unit PO QID PRN lactose 07/28/25 07/28/25 intolerance levothyroxine 50 mcg tablet 50 mcg PO DAILY 07/28/25 07/28/25 montelukast 10 mg tablet 10 mg PO DAILY 07/28/25 07/28/25 multivitamin,uy-pdgr-Fy-FA-min 1 tab PO DAILY 07/28/25 07/28/25 naproxen sodium 220 mg capsule 220 mg PO BID PRN pain 07/28/25 07/28/25 (Aleve) omeprazole 40 mg capsule,delayed 40 mg PO DAILY 07/28/25 07/28/25 release oxybutynin chloride 10 mg 10 mg PO DAILY 07/28/25 07/28/25 tablet,extended release 24 hr sertraline 100 mg tablet 200 mg PO DAILY 07/28/25 07/28/25 sitagliptin phosphate 100 mg 100 mg PO DAILY 07/28/25 07/28/25 tablet (Januvia) trazodone 50 mg tablet 50 mg PO DAILY 07/28/25 07/28/25 Previous Rx's ?Medication ?Instructions ?Recorded albuterol sulfate 90 mcg/actuation 2 inh inhalation Q6H PRN shortness 07/29/25 aerosol inhaler of breath or wheezing #8.5 grams guaifenesin 1,200 mg tablet, 1,200 mg PO BID PRN cough #20 tabs 07/29/25 extended release 12 hr (Mucinex) Allergies Allergy/AdvReac Type Severity Reaction Status Date / Time methylprednisolone Allergy Hives Verified 07/28/25 00:52 oxycodone Allergy Unknown Verified 07/28/25 00:52 loratadine (From Claritin-D) AdvReac tachycardia Verified 07/28/25 00:52 pseudoephedrine (From AdvReac tachycardia Verified 07/28/25 00:52 Claritin-D) metformin AdvReac Mild Diarrhea Uncoded 07/28/25 00:52 Opioid HPI Opioid Management Most Recent Opioid Data: Last Pain Scale 10 Today, 13:59 Review of Systems ROS Status of ROS 10 or more systems reviewed and unremarkable except as noted in history and below PFSH PFSH Social History Smoking status: Never smoker Little interest or pleasure in doing things: not at all Feeling down, depressed, or hopeless: not at all Exam Narrative Exam Narrative: Nurses notes and vital signs reviewed and patient is not hypoxic. General: Well-appearing and in no apparent distress. Skin: Warm, dry, no pallor noted. No rash. Head: Normocephalic, atraumatic. Neck: Supple, non-tender. Cardiovascular: Regular Rate and Rhythm without murmur, gallop or rub. Respiratory: No accessory muscle use or respiratory distress. Lungs are clear to auscultation, no wheezing, rales or rhonchi Chest Wall: no tenderness Back: No midline thoracic or lumbar vertebral tenderness. No CVA tenderness Musculoskeletal: normal ROM, no calf or popliteal tenderness, no lower extremity edema/swelling GI: Abdomen is soft, non-distended. Normal bowel sounds. No masses appreciated. No tenderness to palpation. No rebound, guarding, or rigidity noted. Neurological: A&O x4. No cranial nerve dysfunction observed. No truncal ataxia. Moves all extremities. Sensation intact. Psychiatric: Cooperative and interactive. Normal mood and affect. Constitutional Vital Signs, click to edit/add: Last Vital Signs Temp 98.6 F 07/29/25 13:59 Pulse 90 07/29/25 14:24 Resp 20 07/29/25 13:59 BP 109/91 07/29/25 13:59 Pulse Ox 97 07/29/25 14:24 O2 Del Method Room Air 07/29/25 14:24 Course Vital Signs Vital signs: Vital Signs Temperature 98.6 F 07/29/25 13:59 Pulse Rate 95 H 07/29/25 13:59 Respiratory Rate 20 07/29/25 13:59 Blood Pressure 109/91 07/29/25 13:59 Pulse Oximetry 96 07/29/25 13:59 Oxygen Delivery Method Room Air 07/29/25 13:59 Temperature 98.6 F 07/29/25 13:59 Pulse Rate 90 07/29/25 14:24 Respiratory Rate 20 07/29/25 13:59 Blood Pressure 109/91 07/29/25 13:59 Pulse Oximetry 97 07/29/25 14:24 Oxygen Delivery Method Room Air 07/29/25 14:24 Medical Decision Making MDM Narrative Medical decision making narrative: Patient already had a CAT scan yesterday done showing no acute pathology and no PE Patient already had a blood workup done yesterday and today comparison showed no acute pathology detected compared to yesterday The patient was with a breathing treatment here in the ER after which she was feeling much better she does have an inhaler at home that she is not using she also supposed to use the Symbicort which she was instructed about using that twice a day For the next 2 days the patient will be use the albuterol every 6 hours then will go back to as needed after 2 days the patient also had a Mucinex started instead of the Robitussin that she was taking and I recommended bedside humidifier Patient presentation mostly second to bronchitis and mild asthma exacerbation and the patient have a history of allergy to Solu-Medrol The patient to follow-up with the primary care within 2 to 3 days and to come back to the ER in case of any worsening of the current symptoms or any new symptoms or concerns Lab Data Labs: Lab Results 07/29/25 Range/Units 14:49 WBC 9.4 (4.0-11.0) 10^3/uL RBC 4.40 (4.20-5.40) 10^6/uL Hgb 11.7 L (12.0-16.0) g/dL Hct 36.2 (36.0-48.0) % MCV 82.3 (81.0-99.0) fL MCH 26.6 L (26.7-34.0) pg MCHC 32.3 (29.9-35.2) g/dL RDW 14.0 (11.0-15.0) % Plt Count 296 (150-450) 10^3/uL MPV 9.8 (9.5-13.5) fL Neut % (Auto) 68.7 (43.0-75.0) % Lymph % (Auto) 24.7 (20.5-60.0) % [place] % (Auto) 5.4 (1.7-12.0) % Eos % (Auto) 0.6 L (0.9-7.0) % Baso % (Auto) 0.3 (0.2-2.0) % Neut # (Auto) 6.4 (1.4-6.5) 10^3/uL Lymph # (Auto) 2.3 (1.2-3.8) 10^3/uL [place] # (Auto) 0.5 (0.3-0.8) 10^3/uL Eos # (Auto) 0.1 (0.0-0.7) 10^3/uL Baso # (Auto) 0.0 (0.0-0.1) 10^3/uL Abs Immat Gran (auto) 0.03 (0.00-0.03) 10^3/uL Imm/Tot Granulo (auto) 0.3 (0.0-0.5) % Sodium 143 (136-145) mmol/L Potassium 3.3 L (3.5-5.1) mmol/L Chloride 104 (98-107) mmol/L Carbon Dioxide 28.8 (21.0-32.0) mmol/L Anion Gap 13.5 BUN 9.0 (7.0-18.0) mg/dL Creatinine 0.84 (0.55-1.02) mg/dL Est GFR ( Amer) >60 (>=60 mL/min/1.73m^2) Est GFR (Non-Af Amer) >60 (>=60 mL/min/1.73m^2) BUN/Creatinine Ratio 10.7 Glucose 136 H (74-106) mg/dL Calcium 9.2 (8.5-10.1) mg/dL Total Bilirubin 0.3 (0.2-1.0) mg/dL AST 20 (15-37) U/L ALT 35 (14-59) U/L Alkaline Phosphatase 87 (46-116) U/L Total Protein 7.4 (6.4-8.2) g/dL Albumin 3.4 (3.4-5.0) g/dL Globulin 4.0 g/dL Albumin/Globulin Ratio 0.9 Discharge Plan Discharge Chief Complaint: Upper Respiratory Infection Clinical Impression: Bronchitis Patient Disposition: Home, Self-Care Time of Disposition Decision: 15:37 Condition: Good Prescriptions / Home Meds: New guaifenesin [Mucinex] 1,200 mg tablet extended release 12hr 1,200 mg PO BID PRN (Reason: cough) Qty: 20 0RF albuterol sulfate 90 mcg/actuation HFA aerosol inhaler 2 inh inhalation Q6H PRN (Reason: shortness of breath or wheezing) Qty: 8.5 0RF No Action aripiprazole 10 mg tablet 10 mg PO .qhs atorvastatin 20 mg tablet 20 mg PO .qhs buspirone 15 mg tablet 15 mg PO QDAY cetirizine 10 mg tablet 10 mg PO DAILY cholecalciferol (vitamin D3) 1,250 mcg (50,000 unit) capsule 1,250 mcg PO DAILY hydrochlorothiazide 25 mg tablet 25 mg PO DAILY gabapentin 400 mg capsule 400 mg PO TID hydroxyzine HCl 10 mg tablet 10 mg PO BID PRN (Reason: itching) levothyroxine 50 mcg tablet 50 mcg PO DAILY omeprazole 40 mg capsule,delayed release(DR/EC) 40 mg PO DAILY oxybutynin chloride 10 mg tablet extended release 24hr 10 mg PO DAILY sertraline 100 mg tablet 200 mg PO DAILY trazodone 50 mg tablet 50 mg PO DAILY Januvia 100 mg tablet 100 mg PO DAILY multivitamin,mc-utfb-Js-FA-min Tablet 1 tab PO DAILY naproxen sodium [Aleve] 220 mg capsule 220 mg PO BID PRN (Reason: pain) apple cider vinegar 500 mg tablet 750 mg PO DAILY montelukast 10 mg tablet 10 mg PO DAILY lactase 3,000 unit tablet 3,000 unit PO QID PRN (Reason: lactose intolerance) Rx Instructions: administer with meals and/or snacks Print Language: Malian Instructions: Acute Bronchitis (ED) Additional Instructions: Hydrate very well and have a humidifier at the bedside Use the inhaler albuterol every 6 hours for the first 2 days and then as needed The patient to follow-up with the primary care within 2 to 3 days and to come back to the ER in case of any worsening of the current symptoms or any new symptoms or concerns Referrals: CHANDANA OTT [Primary Care Provider, Unknown] - 1 week
--- OUTSIDE RECORDS SUMMARY | 2025-07-29 15:29 | XMS_ITS | CCD ---
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 Name Role Phone Unavailable Primary Care Provider Unavailabl e Unavailable Chronic Care Management Unavaila ble Summary Purpose DataExchange Insurance Providers Payer name Policy type / Coverage type Covered democrat ID Effective Begin Date Effective End Date SUKI MANN MARIA ESTHER [id number] Unknown Unknown Family history Mother Diagnosis Age [...] 05/31/2018 Education level Unknown Some High School 10th05/31/20185727OhaamcaerrCwwsppfHdfptrmkvq40/29/2018Tobacco historySNOMED CT: 044526168Kkg never smoked or chewed dnxzlrr4505/31/2018Alcohol historySNOMED CT: 817019545Zpjob drinks [id number]/31/2018Has the patient ever used illegal drugs? UnknownHas never used illegal drugs05/31/2018DNR Order/ Advanced Directive UnknownFull Code05/31/2018 Allergies, Adverse Reactions, Alerts Substance Reaction Codes Entered Date Inactivated Date Status OxyContin itch, RxNorm: 708263 01/13/2021 No Inactive Da te Active *No known food allergies Mizycvo1709/06/2018No Inactive DateActiveMethylprednisolonehivesRxNorm: 6902 09/06/2018No Inactive DateActive Problems Condition Codes Effective Dates Condition St atus Adult BMI 50.0-59.9 kg/sq m ICD-10: Z68. 43 ICD-9: V85.4308/ActiveHypertensive heart disease without heart failure ICD-10: I11.9 ICD-9: 402.9003/ctiveMajor depression, recurrentICD-10: F33.9 ICD-9: 296.3009/ctiveType 2 diabetes mellitus with peripheral neuropathy ICD-10: E11.42 ICD-9: 250.6002/ActiveImpetigoICD-10: L01.00 ICD-9: 41701/ctiveType 2 diabetes mellitus with hyperglycemia, without long-term [...] examinationICD-10: Z01.810 ICD-9: V72.8106/InactiveHeadacheICD-10: R51 ICD-9: 784.001InactiveOther prison (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ICD-10: [...] Fill Instructions montelukast 10 mg tablet RxNorm: 989935 Take 1 Tablet(s) Oral every day 024 2023 Inactive gabapentin 300 mg capsule RxNorm: 882114 Take 1 Capsule(s) Oral three times a day 2023 Inactive hydrocortisone 2.5 % topical cream RxNorm: 958293 Apply Application Topical two times a day a thin layer to the affected area(s) No Stop Date Active amoxicillin 500 mg tablet RxNorm: 319635 Take 1 Tablet(s) Oral two times a day 024 2023 Inactive omeprazole 40 mg capsule,delayed release RxNorm: 679322 Take 1 Capsule(s) Oral HS 024 2023 Inactive Januvia 100 mg tablet RxNorm: 163469 Take 1 Tablet(s) Oral every day 023 2023 Inactive amoxicillin 250 mg capsule RxNorm: 197303 Take 1 Capsule(s) Oral three times a day 023 2022 Inactive amoxicillin 500 mg tablet RxNorm: 702149 Take 1 Tablet(s) Oral three times a day 2022 Inactive Ozempic 1 mg/dose (4 mg/3 mL) subcutaneous pen injector RxNorm: 6313771 INJECT 1 UNITS DOSE SUBCUTANEOUSLY ON TUESDAY OF EACH WEEK 023 2023 Inactive MED IS ON B/O omeprazole 40 mg capsule,delayed release RxNorm: 241596 Take 1 Capsule(s) Oral HS 023 2022 Inactive Januvia 50 mg tablet RxNorm: 541007 Take 1 Tablet(s) Oral two times a day 023 2023 Inactive famotidine 20 mg tablet RxNorm: 619752 TAKE 1 TABLET BY MOUTH EACH MORNING 023 2023 Inactive Januvia 25 mg tablet RxNorm: 417125 Take 1 Tablet(s) Oral every day 023 2022 Inactive Ozempic 1 mg/dose (4 mg/3 mL) subcutaneous pen injector RxNorm: 6890520 INJECT 1 UNITS DOSE SUBCUTANEOUSLY ON TUESDAY OF EACH WEEK 023 2022 Inactive cetirizine 10 mg tablet RxNorm: 5347796 TAKE (1) TABLET BY MOUTH DAILY 023 2023 Inactive amoxicillin 500 mg tablet RxNorm: 317366 Take 1 Tablet(s) Oral two times a day 023 2022 Inactive omeprazole 40 mg capsule,delayed release RxNorm: 587808 Take 1 Capsule(s) Oral at bed time 023 2022 Inactive Easy Touch Alcohol Prep Pads RxNorm: 152855 USE EACH MORNING 023 2024 Inactive montelukast 10 mg tablet RxNorm: 705888 Take 1 Tablet(s) Oral every day 023 2022 Inactive gabapentin 300 mg capsule RxNorm: 346310 Take 1 Capsule(s) Oral three times a day 023 2022 Inactive metformin ER 500 mg 24 hr tablet,extended release RxNorm: 4900123 Take 1 Tablet(s) Oral every day with the evening meal 023 2022 Inactive famotidine 20 mg tablet RxNorm: 927720 Take 1 Tablet(s) Oral every morning 023 2022 Inactive levothyroxine 50 mcg tablet RxNorm: 076492 Take 1 Tablet(s) Oral every day 023 2023 Inactive Msg From [facility]: Approval Requested hydrochlorothiazide 25 mg tablet RxNorm: 905458 Take 1 Tablet(s) Oral every day 023 2023 Inactive Msg From [facility]: Approval Requested atorvastatin 20 mg tablet RxNorm: 295324 Take 1 Tablet(s) Oral every night at bedtime 023 2023 Inactive Macrobid 100 mg capsule RxNorm: 630482 1 Capsule(s) Oral every 12 hours with food 023 2022 Inactive omeprazole 40 mg capsule,delayed release RxNorm: 20021111 Take 1 Capsule(s) Oral every night at bedtime 023 2022 Inactive trazodone 50 mg tablet RxNorm: 465943 Administer 1 Tablet(s) Oral every night at bedtime 023 No Stop Date Active cholecalciferol (vitamin D3) 50 mcg (2,000 unit) tablet RxNorm: 358626 Take 1 Tablet(s) Oral every day 023 2023 Inactive Ozempic 1 mg/dose (4 mg/3 mL) subcutaneous pen injector RxNorm: 1813291 USE 1 UNIT DOSE SUBCUTANEOUSLY ON TUE OF EACH WEEK 023 2022 Inactive lisinopril 2.5 mg tablet RxNorm: 327646 Take 1 Tablet(s) Oral every day 023 2022 Inactive Msg From [facility]: Approval Requested Ozempic 1 mg/dose (4 mg/3 mL) subcutaneous pen injector RxNorm: 9341331 USE 1 UNIT DOSE SUBCUTANEOUSLY ON TUE OF EACH WEEK 023 2022 Inactive omeprazole 40 mg capsule,delayed release RxNorm: 005309 Take 1 Capsule(s) Oral every night at bedtime 023 2022 Inactive gabapentin 300 mg capsule RxNorm: 670940 Take 1 Capsule(s) Oral three times a day 023 2022 Inactive montelukast 10 mg tablet RxNorm: 487654 Take 1 Tablet(s) Oral every day 02/082022 Inactive omeprazole 20 mg capsule,delayed release RxNorm: 337829 Take 1 Capsule(s) Oral every evening 2022 Inactive Alcohol Prep Pads RxNorm: 819914 USE EACH MORNING 2021 Inactive E11.42 clotrimazole 1 % topical cream RxNorm: 994129 Apply 1 Application Topical two times a day as needed apply to affected area(s) twice daily until healed 2021 Inactive Victoza 2-Sebastián 0.6 mg/0.1 mL (18 mg/3 mL) subcutaneous pen injector RxNorm: 048659 Inject 0.6-1.8 Milligram(s) Subcutaneous once a week Inject 0.6mg/0.1ml week one, 1.2mg/0.2ml week two, 1.8/0.3ml weekly thereafter 2021 Inactive ibuprofen 800 mg tablet RxNorm: 499642 Take 1 Tablet(s) Oral Q8H as needed for pain take with food No Stop Date Active Ozempic 1 mg/dose (4 mg/3 mL) subcutaneous pen injector RxNorm: 8250599 Take 1 Unit Dose Subcutaneous QWeek Tuesday2021 Inactive lisinopril 2.5 mg tablet RxNorm: 499634 Take 1 Tablet(s) Oral every day 2021 Inactive lisinopril 2.5 mg tablet RxNorm: 105470 Take 1 Tablet(s) Oral every day 022 2022 Inactive hydrochlorothiazide 25 mg tablet RxNorm: 411810 Take 1 Tablet(s) Oral every day 022 2021 Inactive Ozempic 1 mg/dose (4 mg/3 mL) subcutaneous pen injector RxNorm: 3742022 Take 1 Unit Dose Subcutaneous QWeek 022 2021 Inactive famotidine 20 mg tablet RxNorm: 746434 Take 1 Tablet(s) Oral every morning 2021 Inactive levothyroxine 50 mcg tablet RxNorm: 650734 Take 1 Tablet(s) Oral every day 022 2021 Inactive atorvastatin 20 mg tablet RxNorm: 744217 Take 1 Tablet(s) Oral every night at bedtime 022 2021 Inactive Cleocin T 1 % lotion RxNorm: 005174 Take 2 Gram(s) Topical every day 022 2021 Inactive Cleocin T 1 % lotion RxNorm: 547141 Take 2 Gram(s) Topical every day 022 2021 Inactive Ozempic 1 mg/dose (4 mg/3 mL) subcutaneous pen injector RxNorm: 4465933 Take 1 Unit Dose Subcutaneous QWeek 022 2021 Inactive Ozempic 0.25 mg or 0.5 mg (2 mg/1.5 mL) subcutaneous pen injector RxNorm: 3958299 INJECT 0.5 MGS SUBCUTANEOUSLY EVERY WEEK 022 2021 Inactive omeprazole 20 mg capsule,delayed release RxNorm: 547303 Take 1 Capsule(s) Oral every evening 022 2021 Inactive levothyroxine 50 mcg tablet RxNorm: 501425 Take 1 Tablet(s) Oral every day 022 2021 Inactive atorvastatin 20 mg tablet RxNorm: 409512 Take 1 Tablet(s) Oral every night at bedtime 2021 Inactive This refill negates all other refills of this medication lisinopril 2.5 mg tablet RxNorm: 609877 Take 1 Tablet(s) Oral every day 022 2021 Inactive gabapentin 300 mg capsule RxNorm: 557530 Take 1 Capsule(s) Oral three times a day 022 2021 Inactive montelukast 10 mg tablet RxNorm: 585891 Take 1 Tablet(s) Oral every day 022 2021 Inactive Myrbetriq 50 mg tablet,extended release RxNorm: 4976201 1 Tablet(s) Oral every day 03/03/2 022 No Stop Date Active cholecalciferol (vitamin D3) 50 mcg (2,000 unit) tablet RxNorm: 435177 Take 1 Tablet(s) Oral every day 2022 Inactive Ozempic 0.25 mg or 0.5 mg (2 mg/1.5 mL) subcutaneous pen injector RxNorm: 7408824 inject 0.5 milligrams subcutaneously every week 2021 Inactive Ozempic 0.25 mg or 0.5 mg (2 mg/1.5 mL) subcutaneous pen injector RxNorm: 9724637 Take 0.5 Capsule(s) Injection once a week 2021 Inactive omeprazole 20 mg capsule,delayed release RxNorm: 077594 Take 1 Capsule(s) Oral every evening 2020 Inactive Ozempic 0.25 mg or 0.5 mg (2 mg/1.5 mL) subcutaneous pen injector RxNorm: 6037868 Take 0.25 Milligram(s) Subcutaneous once a week 2021 Inactive Easy Touch Alcohol Prep Pads RxNorm: 634245 USE DIRECTED EACH MORNING 2021 Inactive Probiotic 10 billion cell capsule RxNorm: 2766484 Take 1 Capsule(s) Oral every day 2021 Inactive levothyroxine 50 mcg tablet RxNorm: 860627 Take 1 Tablet(s) Oral every day 2020 Inactive [employer] (famotidine) 20 mg tablet RxNorm: 000219 Take 1 Tablet(s) Oral every morning 2020 Inactive Heartburn Relief (famotidine) 10 mg tablet RxNorm: 954107 Take 1 Tablet(s) Oral QAM 2020 Inactive levothyroxine 50 mcg tablet RxNorm: 206986 Take 1 Tablet(s) Oral QD 021 2020 Inactive Singulair 10 mg tablet RxNorm: 086864 TAKE (1) TABLET BY MOUTH DAILY 2020 Inactive metformin 1,000 mg tablet RxNorm: 897896 1 Tablet(s) Oral two times a day 021 2021 Inactive lisinopril 2.5 mg tablet RxNorm: 428682 Take 1 Tablet(s) Oral every day 021 2020 Inactive hydrochlorothiazide 25 mg tablet RxNorm: 630722 Take 1 Tablet(s) Oral every day 021 2020 Inactive ondansetron 4 mg disintegrating tablet RxNorm: 125859 1 Tablet(s) Oral two times a day 021 2020 Inactive Sudafed 12 Hour 120 mg tablet,extended release RxNorm: 9427030 TAKE 1 TABLET BY MOUTH EVERY 12 HOURS NEEDED 2021 Inactive Heartburn Relief (famotidine) 10 mg tablet RxNorm: 855469 Take 1 Tablet(s) Oral every morning 021 2020 Inactive omeprazole 20 mg capsule,delayed release RxNorm: 444683 1 Capsule(s) Oral every evening 021 2020 Inactive sertraline 100 mg tablet RxNorm: 479627 2 Tablet(s) Oral every day 021 2020 Inactive levothyroxine 50 mcg tablet RxNorm: 479295 TAKE (1) TABLET BY MOUTH DAILY 2020 Inactive metformin 500 mg tablet RxNorm: 167830 1 Tablet(s) Oral two times a day take with 500mg to equal 1000mg 021 2020 Inactive gabapentin 300 mg capsule RxNorm: 551848 TAKE 1 CAPSULE BY MOUTH THREE TIMES A DAY 021 2020 Inactive lisinopril 2.5 mg tablet RxNorm: 681677 TAKE 1 TABLET BY MOUTH DAILY 021 2020 Inactive gabapentin 300 mg capsule RxNorm: 998183 TAKE 1 CAPSULE BY MOUTH THREE TIMES A DAY 021 2020 Inactive Singulair 10 mg tablet RxNorm: 741546 TAKE (1) TABLET BY MOUTH DAILY 2020 Inactive metformin 1,000 mg tablet RxNorm: 174659 1 Tablet(s) Oral two times a day 2020 Inactive atorvastatin 40 mg tablet RxNorm: 705874 1 Tablet(s) Oral every day 021 2020 Inactive omeprazole 20 mg capsule,delayed release RxNorm: 812132 1 Capsule(s) Oral every evening 021 2020 Inactive famotidine 10 mg tablet RxNorm: 190876 1 Tablet(s) Oral every morning 021 2020 Inactive Alcohol Prep Pads RxNorm: 994756 USE EACH MORNING 021 2020 Inactive omeprazole 20 mg capsule,delayed release RxNorm: 934252 1 Capsule(s) Oral two times a day 2021 Inactive omeprazole 20 mg capsule,delayed release RxNorm: 304837 TAKE 1 CAPSULE BY MOUTH EVERY DAY 2021 Inactive Macrobid 100 mg capsule RxNorm: 206383 1 Capsule(s) Oral every 12 hours with food 2020 Inactive omeprazole 20 mg capsule,delayed release RxNorm: 682728 1 Capsule(s) Oral two times a day 2021 Inactive metformin 1,000 mg tablet RxNorm: 923876 1 Tablet(s) Oral two times a day 2020 Inactive start on September 11, 2020 metformin 500 mg tablet RxNorm: 134000 1 Tablet(s) Oral two times a day take with 500mg to equal 1000mg 2019 Inactive gabapentin 300 mg capsule RxNorm: 343762 TAKE 1 CAPSULE BY MOUTH THREE TIMES DAILY 2020 Inactive cetirizine 10 mg tablet RxNorm: 9480491 TAKE (1) TABLET BY MOUTH DAILY 2020 Inactive metformin 500 mg tablet RxNorm: 492897 1 Tablet(s) Oral two times a day 2019 Inactive loperamide 2 mg tablet RxNorm: 944415 1 Tablet(s) Oral as needed take one tablet after each loose stool, maximum of 8 tablets in 24 hours 2021 Inactive Sudafed 12 Hour 120 mg tablet,extended release RxNorm: 3309425 TAKE 1 TABLET BY MOUTH EVERY 12 HOURS NEEDED 020 2019 Inactive hydrochlorothiazide 25 mg tablet RxNorm: 538301 TAKE (1) TABLET BY MOUTH EVERY DAY 020 2019 Inactive omeprazole 20 mg capsule,delayed release RxNorm: 744253 TAKE 1 CAPSULE BY MOUTH EVERY DAY 020 2020 Inactive metformin 500 mg tablet RxNorm: 274561 1 Tablet(s) Oral every day 020 2019 Inactive True Metrix Glucose Test Strip RxNorm: 1 Test Strips Miscellaneous two times a day as needed No Stop Date Active metformin 500 mg tablet RxNorm: 770708 1 Tablet(s) Oral every day 020 2019 Inactive diclofenac sodium 75 mg tablet,delayed release RxNorm: 255291 1 Tablet(s) PO BID 2021 Inactive This refill negates all other refills of this medication Sudafed 12 Hour 120 mg tablet,extended release RxNorm: 0735425 TAKE 1 TABLET BY MOUTH EVERY 12 HOURS NEEDED 020 2019 Inactive True Metrix Glucose Test Strip RxNorm: 1 Test Strips Miscellaneous every morning 020 2019 Inactive 100/container True Metrix Glucose Test Strip RxNorm: 1 Test Strips Miscellaneous QAM 020 2019 Inactive 100/container loperamide 2 mg tablet RxNorm: 172903 1 Tablet(s) Oral as needed take one tablet after each loose stool, maximum of 8 tablets in 24 hours 020 2019 Inactive cetirizine 10 mg tablet RxNorm: 0928935 1 Tablet(s) PO daily 020 2019 Inactive loperamide 2 mg tablet RxNorm: 336168 1 Tablet(s) Oral as needed take one tablet after each loose stool, maximum of 8 tablets in 24 hours 2019 Inactive quetiapine 100 mg tablet RxNorm: 923532 1 Tablet(s) Oral every night at bedtime 2019 Inactive levothyroxine 50 mcg tablet RxNorm: 990801 1 Tablet(s) PO daily 2020 Inactive gabapentin 300 mg capsule RxNorm: 085792 1 Capsule(s) PO TID 2019 Inactive levothyroxine 50 mcg tablet RxNorm: 069415 1 Tablet(s) PO daily 2019 Inactive lisinopril 2.5 mg tablet RxNorm: 484887 1 Tablet(s) PO daily 2020 Inactive gabapentin 300 mg capsule RxNorm: 742728 1 Capsule(s) PO TID 2019 Inactive cetirizine 10 mg tablet RxNorm: 1293227 1 Tablet(s) PO daily 2019 Inactive Singulair 10 mg tablet RxNorm: 976228 1 Tablet(s) PO daily 2020 Inactive gentamicin 0.3 % eye drops RxNorm: 831131 1 Drop(s) ophthalmic (eye) four times a day 2019 Inactive gentamicin 0.3 % eye drops RxNorm: 870615 1 Drop(s) ophthalmic (eye) four times a day 2019 Inactive gentamicin 0.3 % eye drops RxNorm: 218680 1 Drop(s) ophthalmic (eye) four times a day 2019 Inactive hydrochlorothiazide 25 mg tablet RxNorm: 216756 1 Tablet(s) Oral every day 2019 Inactive Sudafed 12 Hour 120 mg tablet,extended release RxNorm: 5390522 TAKE (1) TABLET BY MOUTH EVERY 12 HOURS NEEDED 2019 Inactive loperamide 2 mg tablet RxNorm: 253624 1 Tablet(s) Oral as needed take one tablet after each loose stool, maximum of 8 tablets in 24 hours 020 2019 Inactive loperamide 2 mg tablet RxNorm: 347885 1 Tablet(s) Oral as needed take one tablet after each loose stool, maximum of 8 tablets in 24 hours 020 2019 Inactive atorvastatin 40 mg tablet RxNorm: 135049 1 Tablet(s) Oral every day 020 2020 Inactive quetiapine 100 mg tablet RxNorm: 209860 1 Tablet(s) Oral every night at bedtime 2019 Inactive sertraline 100 mg tablet RxNorm: 968644 1 Tablet(s) Oral 2019 Inactive omeprazole 20 mg capsule,delayed release RxNorm: 102212 1 Capsule(s) Oral every day 2019 Inactive amoxicillin 250 mg capsule RxNorm: 606008 1 Capsule(s) Oral three times a day 2019 Inactive multivitamin with iron-mineral tablet RxNorm: 1 Tablet(s) Oral every day 2021 Inactive cetirizine 10 mg tablet RxNorm: 8742686 1 Tablet(s) PO daily 2019 Inactive This refill negates all other refills of this medication. Please do not auto refill Singulair 10 mg tablet RxNorm: 080449 1 Tablet(s) PO daily 2019 Inactive This refill negates all other refills of this medication gabapentin 300 mg capsule RxNorm: 807750 1 Capsule(s) PO TID 2019 Inactive lisinopril 2.5 mg tablet RxNorm: 436997 1 Tablet(s) PO daily 2019 Inactive levothyroxine 50 mcg tablet RxNorm: 333422 1 Tablet(s) PO daily 2019 Inactive This refill negates all other refills of this medication hydrochlorothiazide 25 mg tablet RxNorm: 368510 1 Tablet(s) Oral every day 020 2019 Inactive fenugreek seed extract 500 mg capsule RxNorm: 1 Capsule(s) Oral three times a day 2021 Inactive Alcohol Prep Pads RxNorm: 349470 1 Patch TOP QAM 020 2020 Inactive loperamide 2 mg tablet RxNorm: 611960 1 Tablet(s) Oral as needed take one [...] 2019 Inactive hydrochlorothiazide 25 mg tablet RxNorm: 960117 1 Tablet(s) Oral every day 019 2019 Inactive Sudafed 12 Hour 120 mg tablet,extended release RxNorm: 4160657 1 Tablet(s) Oral every 12 hours as needed 019 2018 Inactive omeprazole 20 mg capsule,delayed release RxNorm: 753817 1 Capsule(s) Oral every day 019 2019 Inactive Sudafed 12 Hour 120 mg tablet,extended release RxNorm: 3745846 1 Tablet(s) Oral every 12 hours as needed 2018 Inactive pantoprazole 40 mg tablet,delayed release RxNorm: 707745 1 Tablet(s) Oral every day 019 2018 Inactive discontinue any other H2Blkr. and PPI albuterol sulfate 2.5 mg/3 mL (0.083 %) solution for nebulization RxNorm: 096637 1 Vial Inhalation every four hours as needed as needed for dyspnea 019 2019 Inactive 60/box. This refill negates all other refills of this medication. Please do not fill early. Please do not auto refill. Symbicort 160 mcg-4.5 mcg/actuation HFA aerosol inhaler RxNorm: 9559204 2 Puff(s) INH BID No Stop Date Active Alcohol Prep Pads RxNorm: 770680 1 Patch TOP QAM 019 2019 Inactive Ventolin HFA 90 mcg/actuation aerosol inhaler RxNorm: 022122 2 Puff(s) INH QID 019 2019 Inactive Please do not fill early. Please do not auto refill. This refill negates all other refills of this medication True Metrix Glucose Test Strip RxNorm: 1 Test Strips Miscellaneous QA 019 2019 Inactive 100/container atorvastatin 40 mg tablet RxNorm: 742439 1 Tablet(s) Oral every day 019 2019 Inactive buspirone 7.5 mg tablet RxNorm: 551623 1 Tablet(s) PO BID 019 2020 Inactive This refill negates all other refills of this medication hydrochlorothiazide 12.5 mg tablet RxNorm: 631400 1 Tablet(s) PO QAM 019 2019 Inactive levmetamfetamine 50 mg nasal inhaler RxNorm: 1 Unit(s) NASAL Q3-4H Do not use more than every 3 hours or 8 times/24hours 019 2021 Inactive Please do not auto refill. This refill negates all other refills of this medication Ventolin HFA 90 mcg/actuation aerosol inhaler RxNorm: 837095 2 Puff(s) INH QID 019 2018 Inactive Please do not fill early. Please do not auto refill. This refill negates all other refills of this medication Singulair 10 mg tablet RxNorm: 239179 1 Tablet(s) PO daily 019 2019 Inactive This refill negates all other refills of this medication cetirizine 10 mg tablet RxNorm: 0622338 1 Tablet(s) PO daily 019 2019 Inactive This refill negates all other refills of this medication. Please do not auto refill levothyroxine 50 mcg tablet RxNorm: 286267 1 Tablet(s) PO daily 019 2019 Inactive This refill negates all other refills of this medication diclofenac sodium 75 mg tablet,delayed release RxNorm: 300465 1 Tablet(s) PO BID 019 2019 Inactive This refill negates all other refills of this medication ranitidine 150 mg tablet RxNorm: 694332 1 Tablet(s) PO BID 019 2018 Inactive This refill negates all other refills of this medication Calcium 600-D3 Plus (mag-zinc) 600 mg calcium-800 unit-50 mg tablet RxNorm: 1 Tablet(s) PO daily take an additonal tablet for itching. 019 2018 Inactive This refill negates all other refills of this medication albuterol sulfate 2.5 mg/3 mL (0.083 %) solution for nebulization RxNorm: 492412 1 Vial INH QID 019 2018 Inactive 60/box. This refill negates all other refills of this medication. Please do not fill early. Please do not auto refill. lisinopril 2.5 mg tablet RxNorm: 185028 1 Tablet(s) PO daily 019 2019 Inactive gabapentin 300 mg capsule RxNorm: 563959 1 Capsule(s) PO TID 019 2019 Inactive atorvastatin 20 mg tablet RxNorm: 086942 1 Tablet(s) PO QHS 019 2018 Inactive This refill negates all other refills of this medication TRUEplus Lancets 30 gauge RxNorm: 1 Lancets Miscellaneous QAM 019 2018 Inactive 100/box gabapentin 300 mg capsule RxNorm: 001171 1 Capsule(s) PO TID 019 2018 Inactive Flmarkmaury Complete (iron) 18 mg iron chewable tablet RxNorm: 1 Tablet(s) PO daily 019 2021 Inactive This refill negates all other refills of this medication gabapentin 300 mg capsule RxNorm: 503630 1 Capsule(s) PO TID as needed 2018 Inactive True Metrix Glucose Test Strip RxNorm: 1 Test Strips Miscellaneous QAM 019 2018 Inactive 100/container Alcohol Prep Pads RxNorm: 657859 1 Patch TOP QAM 2018 Inactive TRUEplus Lancets 30 gauge RxNorm: 1 Lancets Miscellaneous QAM 019 2018 Inactive 100/box lisinopril 2.5 mg tablet RxNorm: 266889 1 Tablet(s) PO daily 2018 Inactive ranitidine 150 mg tablet RxNorm: 100103 1 Tablet(s) PO BID 2018 Inactive This refill negates all other refills of this medication albuterol sulfate 2.5 mg/3 mL (0.083 %) solution for nebulization RxNorm: 626731 1 Vial INH QID 2018 Inactive 60/box. [...] this medication gabapentin 300 mg capsule RxNorm: 683855 1 Capsule(s) PO TID as needed 019 2018 Inactive atorvastatin 20 mg tablet RxNorm: 492849 1 Tablet(s) PO QHS 019 2018 Inactive This refill negates all other refills of this medication trazodone 50 mg tablet RxNorm: 015629 1 Tablet(s) PO QHS 019 2018 Inactive This refill negates all other refills of this medication Ventolin HFA 90 mcg/actuation aerosol inhaler RxNorm: 967278 2 Puff(s) INH QID 019 2018 Inactive Please do not fill early. Please do not auto refill. This refill negates all other refills of this medication Calcium 600-D3 Plus 600 mg calcium-800 unit-50 mg tablet RxNorm: 1 Tablet(s) PO daily take an additonal tablet for itching. 019 2018 Inactive This refill negates all other refills of this medication Singulair 10 mg tablet RxNorm: 738240 1 Tablet(s) PO daily 019 2018 Inactive This refill negates all other refills of this medication buspirone 7.5 mg tablet RxNorm: 752040 1 Tablet(s) PO BID 019 2018 Inactive This refill negates all other refills of this medication diclofenac sodium 75 mg tablet,delayed release RxNorm: 028471 1 Tablet(s) PO BID 019 2018 Inactive This refill negates all other refills of this medication hydrochlorothiazide 12.5 mg tablet RxNorm: 846224 1 Tablet(s) PO QAM 019 2018 Inactive metoprolol succinate ER 50 mg tablet,extended release 24 hr RxNorm: 916710 1 Tablet(s) PO daily 019 2018 Inactive This refill negates all other refills of this medication levothyroxine 50 mcg tablet RxNorm: 600037 1 Tablet(s) PO daily 019 2018 Inactive This refill negates all other refills of this medication cetirizine 10 mg tablet RxNorm: 4387430 1 Tablet(s) PO daily 019 2018 Inactive This refill negates all other refills of this medication. Please do not auto refill Flintstones Complete (iron) 18 mg iron chewable tablet RxNorm: 1 Tablet(s) PO daily 019 2018 Inactive This refill negates all other refills of this medication buspirone 7.5 mg tablet RxNorm: 048861 1 Tablet(s) PO BID 019 2018 Inactive cetirizine 10 mg tablet RxNorm: 3630705 1 Tablet(s) PO daily 2018 Inactive Guaiasorb DM 10 mg-100 mg/5 mL oral liquid RxNorm: 608955 10 Milliliter(s) PO As needed every 4 hr 2018 Inactive Vicks Vaporub 4.7 %-1.2 %-2.6 % topical ointment RxNorm: 4203016 1 Application TOP TID 2018 Inactive levmetamfetamine 50 mg nasal inhaler RxNorm: 1 Unit(s) NASAL Q3-4H 2017 Inactive sertraline 50 mg tablet RxNorm: 637050 1 Tablet(s) PO daily 2018 Inactive Please note dose trazodone 50 mg tablet RxNorm: 548298 1 Tablet(s) PO QHS 2018 Inactive sertraline 50 mg tablet RxNorm: 256052 1 Tablet(s) PO daily 018 2017 Inactive amoxicillin 500 mg tablet RxNorm: 387097 1 Tablet(s) PO Q12H 2017 Inactive albuterol sulfate 2.5 mg/3 mL (0.083 %) solution for nebulization RxNorm: 692493 1 Vial INH QID 2018 Inactive 60/box. Please do not fill early. Please do not auto refill. Prozac 10 mg capsule RxNorm: 554655 1 Capsule(s) PO daily 018 2017 Inactive buspirone 7.5 mg tablet RxNorm: 940823 1 Tablet(s) PO BID 018 2018 Inactive gabapentin 300 mg capsule RxNorm: 152417 1 Capsule(s) PO TID as needed 018 2018 Inactive hydrochlorothiazide 12.5 mg tablet RxNorm: 225777 1 Tablet(s) PO QAM 018 2018 Inactive ranitidine 150 mg tablet RxNorm: 093662 1 Tablet(s) PO BID 018 2018 Inactive Macrobid 100 mg capsule RxNorm: 364118 1 Capsule(s) PO Q12H 018 2017 Inactive Singulair 10 mg tablet RxNorm: 858691 1 Tablet(s) PO daily 018 2018 Inactive Ventolin HFA 90 mcg/actuation aerosol inhaler RxNorm: 4487233 2 Puff(s) INH QID 018 2018 Inactive Singulair 10 mg tablet RxNorm: 355526 1 Tablet(s) PO daily 018 2017 Inactive buspirone 7.5 mg tablet RxNorm: 322726 1 Tablet(s) PO BID 018 2017 Inactive Prozac 10 mg capsule RxNorm: 049121 1 Capsule(s) PO daily 018 2017 Inactive diclofenac sodium 75 mg tablet,delayed release RxNorm: 215519 1 Tablet(s) PO BID 018 2017 Inactive lisinopril 2.5 mg tablet RxNorm: 069909 1 Tablet(s) PO daily 018 2017 Inactive Neilmed Pediatric Sinus Rinse Refill packet RxNorm: 1 Unit Dose NASAL PRN 018 2021 Inactive metoprolol succinate ER 50 mg tablet,extended release 24 hr RxNorm: 309835 1 Tablet(s) PO daily 018 2017 Inactive levothyroxine 50 mcg tablet RxNorm: 757206 1 Tablet(s) PO daily 018 2017 Inactive TRUEplus Lancets 30 gauge RxNorm: 1 Lancets Miscellaneous QAM 018 2017 Inactive 100/box Ventolin HFA 90 mcg/actuation aerosol inhaler RxNorm: 635047 2 Puff(s) INH QID 018 2017 Inactive Aleve 220 mg capsule RxNorm: 7900695 1 Capsule(s) PO BID 018 2018 Inactive ranitidine 150 mg tablet RxNorm: 540436 1 Tablet(s) PO BID 018 2017 Inactive gabapentin 300 mg capsule RxNorm: 482022 1 Capsule(s) PO TID as needed 018 2017 Inactive atorvastatin 20 mg tablet RxNorm: 861071 1 Tablet(s) PO QHS 018 2017 Inactive True Metrix Glucose Test Strip RxNorm: 1 Test Strips [facility] QAM 018 2017 Inactive 50/container Calcium 600-D3 Plus 600 mg calcium-800 unit-50 mg tablet RxNorm: 1 Tablet(s) PO daily take an additonal tablet for itching. 018 2017 Inactive hydrochlorothiazide 12.5 mg tablet RxNorm: 800023 1 Tablet(s) PO QAM 018 2017 Inactive Flintstones Complete (iron) 18 mg iron chewable tablet RxNorm: 1 Tablet(s) PO daily 018 2017 Inactive True Metrix Glucose Meter RxNorm: miscellaneous 019 2018 Inactive sertraline 50 mg tablet RxNorm: 238829 1 Tablet(s) PO daily 020 2019 Inactive loperamide 2 mg tablet RxNorm: 091517 oral 019 2018 Inactive d-mannose oral powder RxNorm: PO 018 2021 Inactive Symbicort 160 mcg-4.5 mcg/actuation HFA aerosol inhaler RxNorm: 3164706 2 Puff(s) INH BID 019 2018 Inactive Medication Administered No Medication Administered data Results Observation Observation Code Item Item Code Result Date S ervice Location COMPLETE CBC W/ DIFF WBC 93493 WBC 6690-2 7.7 K/ul 09/22/2023 [facility] [address],[place] [address]LCUXMRTO CBC W/ DIFF [id number] M/uL09/22/2023 [facility] [address],[place] [address]ZDWNOVAX CBC W/ DIFF LVH79136Suuptrznqh932-311.5 g/dL09/22/2023 [facility] [address],[place] [address]MHIMSZBH CBC W/ DIFF WSJ15297Wlftstwysy0221-144.4 %09/22/2023 [facility] [address],[place] [address]AKKRAORL CBC W/ DIFF WZM90535APV545-261.1 fL09/22/2023 [facility] [address],[place] [address]FFMCOELY CBC W/ DIFF PSG75077GEV287-904.5 pg09/22/2023 [facility] [address] [place] [address]DPINAJJX CBC W/ DIFF KKE92222MIOO061-217.6 g/dL09/22/2023 [facility] [address] [place] [address]KEPJJDNW CBC W/ DIFF MHU45115IPI359-904.6 %09/22/2023 [facility] [address],[place] [address]UQTWRRFR CBC W/ DIFF BAY42394Rwuqvbln Palrg162-6460 K/uL09/22/2023 [facility] [address] [place] [address]NBUZAPXI CBC W/ DIFF MJA68616SPW59206-26.1 fL09/22/2023 [facility] [address] [place] [address]IRMUWQWA CBC W/ DIFF LFJ52323Dccqhddbxug %770-863.7 %09/22/2023 [facility] [address] [place] [address]NKJDRWFB CBC W/ DIFF ZCK80765Cfxilnrsmia %736-927.9 %09/22/2023 [facility] [address] [place] [address]UYAHEDEO CBC W/ DIFF SVW24617Qbglprwxb %5905-56.8 %09/22/2023 [facility] [address] [place], [place] [address]TJJSTUON CBC W/ DIFF VML53853Yltsqfiutop %713-81.2 %09/22/2023 [facility] [address] [facility] [place] [address]JITSWGVT CBC W/ DIFF ZPP88675Rcjvyafvl%706-20.4 %09/22/2023 [facility] [address] [place], [place] [address]PCOIRZWD CBC W/ DIFF JMX96831Nozvgyug Ygaxtivnoj115-09987 /ul 09/22/2023 [facility] [address] [place], [place] [address]EBGCAVMM CBC W/ DIFF SIW35294Vnsomsqe Lesidrpvoz14346-30502 /ul 09/22/2023 [facility] [address] [place], [place] [address]LYWFGFCO CBC W/ DIFF FUE99324Lglqcojk Gcpggbuu495-6083 /ul 09/22/2023 [facility] [address] [place], [place] [address]AUMJHKAY CBC W/ DIFF ORP30798Etgjubya Uovbjwfskr786-140 /ul 09/22/2023 [facility] [address] [place], [place] [address]VSINFTMB CBC W/ DIFF CAU26476Whxsmbug Zocnytnl765-372 /ul09/22/2023 [facility] [address] [place], [place] [address]AFCF 14 (METABOLIC PANEL)71734Oaiuvnz4448-134 mg/dL09/21/2023 [facility] [address] [place], [place] [address]GEJN 14 (METABOLIC PANEL)55613GHG4679-919 mg/dL09/21/2023 [facility] [address] [place], [place] [address]WVSL 14 (METABOLIC PANEL)76563Udjvnxsexk7961-24.9 mg/dL09/21/2023 [facility] [address] [place], [place] [address]DAKP 14 (METABOLIC PANEL)36270JNT/Creat Gyfmi2936-308.012 [facility] [address] [place], [place] [address]WCDV 14 (METABOLIC PANEL)75677QCF Ktxwlvdva39281-455 mL/min/1.73m2 09/21/2023 [facility] [address] [place], [place] [address]OMDA 14 (METABOLIC PANEL)21235Awsauv1098-5939 mmol/L111/22/2022 [facility] [address] [place], [place] [address]JTBW 14 (METABOLIC PANEL)22494Serhpydfs0190-78.3 mmol/L111/22/2022 [facility] [address] [place] [address]FGRX 14 (METABOLIC PANEL)18571Ujryqivt9946-9957 mmol/L111/22/2022 [facility] [address] [place], [place] [address]ZRIH 14 (METABOLIC PANEL)96854Byqbw IM28849-437 mmol/L111/22/2022 [facility] [address] [place], [place] [address]VIGT 14 (METABOLIC PANEL)18222Eifjg Lps1927-675.3 mEq/L111/22/2022 [facility] [address] [place], [place] [address]CDDW 14 (METABOLIC PANEL)56067Cgwxtxoypy Serum Wuskhhfcjo40571-8889 mOsm/kg09/21/2023 [facility] [address] [place] [address]LJSM 14 (METABOLIC PANEL)13190Hbxmfrb60347-53.7 g/dL09/21/2023 [facility] [address] [place] [address]TRWY 14 (METABOLIC PANEL)34098Utbxa Qswtxqi8403-14.3 g/dL09/21/2023 [facility] [address] [place] [address]JGHO 14 (METABOLIC PANEL)79340Ozupupgm8340-11.6 g/dL09/21/2023 [facility] [address] [place] [address]GOKP 14 (METABOLIC PANEL)98579Kvaoidn/Globulin Lnosl9709-70.0 09/21/2023 [facility] [address] [place] [address] 816[address]LGNZ 14 (METABOLIC PANEL)94689BSO ADEB8953-6492.00 U/L111/22/2022 [facility] [address] [place] [address]GFOT 14 (METABOLIC PANEL)68773OMIV/GCK6344-045 U/L111/22/2022 [facility] [address] [place] [address]NJRY 14 (METABOLIC PANEL)95230EHKO/KVS6411-797 U/L111/22/2022 [facility] [address] [place] [address]XQON 14 (METABOLIC PANEL)22598Ngmtg Fehivqqgi4380-84.3 mg/dL 09/21/2023 [facility] [address] [place] [address]ZHPU 14 (METABOLIC PANEL)83323Tkbczbw05760-29.6 mg/dL09/21/2023 [facility] [address] [place] [address]GBFD 14 (METABOLIC PANEL)78182Bzsgluerg Isnthjr24281-324.0 mg/dL 09/21/2023 [facility] [address] [place] [address]J2Y-SXYEUAURJWOMQIM7836-4Vfayr HGB Q5G01848-59.6 %09/21/2023 [facility] [address] [place] [address]Q3E-WBQYZLHYHFPRQNS3275-5eAE70832-5709 mg/dL09/21/2023 [facility] [address] [place] [address]BSBALNMZ CBC W/ DIFF ZHY66153GSB5012-54.8 K/ul05/06/2023 [facility] [address] [place] [address]AHZIJRIN CBC W/ DIFF LHI30712DEP548-04.32 M/uL05/06/2023 [facility] [address] [place] [address]WZZNODHU CBC W/ DIFF LKI17285Kevibfezod204-272.5 g/dL05/06/2023 [facility] [address] [place] [address]QHEFEWCH CBC W/ DIFF USJ22991Frjvxsfjdr3736-532.6 %05/06/2023 [facility] [address] [place] [address]NWOZFGER CBC W/ DIFF CTN34288ALB555-369.1 fL05/06/2023 [facility] [address] [place] [address]UVXLUOPB CBC W/ DIFF IKE10188QXK866-140.7 pg05/06/2023 [facility] [address] [place] [address]TYHZXSIO CBC W/ DIFF MKW81967NSNY952-167.3 g/dL05/06/2023 [facility] [address] [place], [place] [address]DXQQYWQP CBC W/ DIFF MPS22811AIT106-085.2 %05/06/2023 [facility] [address]ZTVKECPY CBC W/ DIFF DMP99489Jyjvqvky Odoxs905-9786 K/uL05/06/2023 [facility] [address] [facility] [place] [address]NRDOBCRK CBC W/ DIFF CJY11980QCY40390-23.9 fL05/06/2023 [facility] [address] [place], [place] [address]KHEIISED CBC W/ DIFF KYW55882Nkvfqneooot %770-859.2 %05/06/2023 [facility] [address] [place], [place] [address]ZAWRBCQT CBC W/ DIFF CLW60394Auagqxhbbnl %736-928.1 %05/06/2023 [facility] [address] [place], [place] [address]IMLXXXDD CBC W/ DIFF RGG70007Bnrywfjyg %5905-57.1 %05/06/2023 [facility] [address] [place], [place] [address]MBZYTNXC CBC W/ DIFF MCR47270Oznohoqzmaf %713-85.0 %05/06/2023 [facility] [address] [place], [place] [address]UULDMUJL CBC W/ DIFF FTD71644Jluedhudc%706-20.6 %05/06/2023 [facility] [address] [facility] [place] [address]NRZSUIUI CBC W/ DIFF BXU13649Zyzvsxod Mtnjzwfjhw298-82971 /ul 05/06/2023 [facility] [address] [place], [place] [address]IZSOFLXR CBC W/ DIFF GIQ72141Gfdkrmsd Lmyciwdfjr90494-10340 /ul 05/06/2023 [facility] [address] [place], [place] [address]RCKQDCTV CBC W/ DIFF IYK54840Ustqahbi Qjubgxzn054-3643 /ul 05/06/2023 [facility] [address] [place], [place] [address]JQGXFQQP CBC W/ DIFF OAQ67849Clbvqidv Otkyhjxiuk994-0355 /ul 05/06/2023 [facility] [address] [place], [place] [address]BPLPIEHG CBC W/ DIFF DWU03097Aqgpjswt Qzjynvhz699-329 /ul05/06/2023 [facility] [address] [place], [place] [address]EVL - DPMD38913FEH8607-250 mg/dL05/05/2023 [facility] [address] [place] [address]XUQ - FTPK65311VGD70749-681 %05/05/2023 [facility] [address] [facility] [place] [address]DTACYGPBXTVG (URINE)98937Qnvcrerwxqxy75716-01.3 mg/dL05/05/2023 [facility] [address] [facility] [place] [address]ETMVLQPUDYKQ (URINE)83364Cdvwwsywphdm/Creatinine Fvljl99735-577 MCG/XFAUNYN8905/05/2023 [facility] [address] [facility] [address]OBGEGVFFHQFP (URINE)[address]Jjydw Ngkiulphsz8958-412.70 mg/dL 05/05/2023 [facility] [address] [facility] [place] [address]CWRGJQ LDL - RHOR06621DGM-Wdpthh56930-278 mg/dL05/05/2023 [facility] [address] [facility] [place] [address]RHWURPANAXTNA73264Fhausplduyxli1343-5525 mg/dL05/05/2023 [facility] [address] [facility] [place] [address]GRIETDGWLYEVV55678SKSK24506-615 mg/dL05/05/2023 [facility] [address] [facility] [place] [address]NXCDCAHWENL43110Zfqdvlichzv4109-5789 mg/dL05/05/2023 [facility] [address] [facility] [place] [address]HQWIOYP W81595Piajuas Q82948-354.4 ng/mL05/05/2023 [facility] [address] [facility] [place] [address]KTKLHIYDKG12172Wdvgktlcfj69481-139 mg/dL05/05/2023 [facility] [address] [facility] [place] [address]YXZK 14 (METABOLIC PANEL)54863Dlilecr4785-668 mg/dL10/21/2022 [facility] [address] [facility] [address]QQVA 14 (METABOLIC PANEL)75300VEY4348-917 mg/dL10/21/2022 [facility] [address] [facility] [place] [address]OYBX 14 (METABOLIC PANEL)71425Xyarwcturl7542-03.9 mg/dL10/21/2022 [facility] [address] [place] [address] 835[address]NLCO 14 (METABOLIC PANEL)72587CPR/Creat Leymt7818-325.6010/21/2022 [facility] [address] [place], [place] [address]QFMK 14 (METABOLIC PANEL)05387UPF Nesepchgy35482-550 mL/min/1.73m2 10/21/2022 [facility] [address] [place], [place] [address]ZOYK 14 (METABOLIC PANEL)86367Tetwvt1725-9684 mmol/L10/21/2022 [facility] [address] [place], [place] [address]LPYS 14 (METABOLIC PANEL)68436Skekfilqq4364-79.9 mmol/L10/21/2022 [facility] [address] [place] [address]ZYDE 14 (METABOLIC PANEL)41388Zzktltgd0117-4327 mmol/L10/21/2022 [facility] [address] [place] [address] 234[address]JHHO 14 (METABOLIC PANEL)89504Qnfhy OG35683-794 mmol/L10/21/2022 [facility] [address] [place] [address] 42[address]OVTV 14 (METABOLIC PANEL)13067Iugzwhdfqv Serum Cjnsgbuich59451-3281 mOsm/kg10/21/2022 [facility] [address] [place] [address] 224[address]UHYC 14 (METABOLIC PANEL)40601Nveyc Ray5176-358.9 mEq/L10/21/2022 [facility] [address] [place] [address] 980[address]DECR 14 (METABOLIC PANEL)38520Yamtitd10477-40.7 g/dL10/21/2022 [facility] [address] [place] [address]GGIE 14 (METABOLIC PANEL)70589Cpcov Pyuroud2747-47.2 g/dL10/21/2022 [facility] [address] [place] [address] 637[address]TEPY 14 (METABOLIC PANEL)69748Glvijwcs6426-67.5 g/dL10/21/2022 [facility] [address] [place] [address] 628[address]NJPP 14 (METABOLIC PANEL)95858Yxbndgb/Globulin Usfqb4091-29.1 10/21/2022 [facility] [address] [place] [address]JSYQ 14 (METABOLIC PANEL)27298WEZ ZKXC4297-200.00 U/L10/21/2022 [facility] [address] [place] [address]DZFF 14 (METABOLIC PANEL)17145VTRT/AEX5279-122 U/L10/21/2022 [facility] [address] [place] [address]YWZW 14 (METABOLIC PANEL)35643QLNK/NGG5599-045 U/L10/21/2022 [facility] [address] [place] [address]DAZP 14 (METABOLIC PANEL)96819Qvntl Ideaqgzud7759-29.4 mg/dL 10/21/2022 [facility] [address] [place] [address]CRUY 14 (METABOLIC PANEL)40449Cnedrhv04390-68.4 mg/dL10/21/2022 [facility] [address] [place] [address]XYZT 14 (METABOLIC PANEL)52015Dgfvouwvr Oysemlw78683-09.8 mg/dL 10/21/2022 [facility] [address] [facility] [address]D0R-AFQLHHXNXZDECPO3992-3Aisxo HGB N4D06327-71.6 %10/21/2022 [facility] [address] [facility] [place], [place] [address]R4Y-NAMXVJSYTDUBOLA1658-0kLL91079-6786 mg/dL10/21/2022 [facility] [address] [place], [place] [address]UQWQDEUL CBC W/ DIFF VUJ66601DOM5672-372.4 K/ul10/21/2022 [facility] [address] [facility] [place], [place] [address]ESPENAHK CBC W/ DIFF ULC74158TFG799-38.78 M/uL10/21/2022 [facility] [address] [facility] [place] [address]QEZXTTRK CBC W/ DIFF WMC87863Mwnfwmslat799-135.0 g/dL10/21/2022 [facility] [address] [place], [place] [address]NHFYBQTM CBC W/ DIFF EHA33381Aeybmxazjt0461-907.3 %10/21/2022 [facility] [address] [place], [place] [address]LQTTRGWW CBC W/ DIFF QKL58141XMZ750-797.1 fL10/21/2022 [facility] [address] [facility] [place] [address]FJVWAEYS CBC W/ DIFF NIE14005YPX738-009.1 pg10/21/2022 [facility] [address] [place] [address]ZPKMIBBQ CBC W/ DIFF BNY83708XUHF205-651.4 g/dL10/21/2022 [facility] [address] [place] [address]NUINVRCM CBC W/ DIFF MPA15658CPX108-715.3 %10/21/2022 [facility] [address] [place] [address]CDKLOEVV CBC W/ DIFF NQC30178Ikittiph Weekz829-6011 K/uL10/21/2022 [facility] [address] [place] [address]ECUSDUMJ CBC W/ DIFF BCW20401YHE74424-20.0 fL10/21/2022 [facility] [address] [place] [address]ZOMHIWYQ CBC W/ DIFF AYQ27037Fnlunzuupgl %770-874.4 %10/21/2022 [facility] [address] [place] [address]QRZWWQRO CBC W/ DIFF DUX27228Rxylsosbqos %736-918.3 %10/21/2022 [facility] [address] [place] [address]FVBCEISS CBC W/ DIFF DKG18925Wzblzvspl %5905-56.3 %10/21/2022 [facility] [address] [place] [address]YATZHRLM CBC W/ DIFF ADQ70649Yiyrgorxmij %713-80.7 %10/21/2022 [facility] [address] [place] [address]VJVNKVVA CBC W/ DIFF HPY85051Rousruxhi%706-20.3 %10/21/2022 [facility] [address] [place] [address]FJEQCBTI CBC W/ DIFF BSD61838Sehufygn Sveyuhsnxd000-59345 /ul 10/21/2022 [facility] [address] [place] [address]CRLXWLOV CBC W/ DIFF PMW67932Cyhvzvvc Gyuerwdeov32592-91656 /ul 10/21/2022 [facility] [address] [place] [address]ZQUHQCUD CBC W/ DIFF CVH39421Duzzcjyh Cvguygio131-7875 /ul 10/21/2022 [facility] [address] [place], [place] [address]AMJXNUFD CBC W/ DIFF WWC92333Rvtoidfw Ekafqrgxur632-972 /ul 10/21/2022 [facility] [address] [place], [place] [address]TIKMBLTZ CBC W/ DIFF AVG55415Zugqpocb Rlgboizz510-455 /ul10/21/2022 [facility] [address] [place], [place] [address]RNFXFUV B-5670479Unqxeob U367760-5307 pg/mL10/21/2022 [facility] [address] [place], [place] [address]S9O-RMEPZXETCTXUVNW4557-0Nizgj HGB Y4N09396-04.8 %06/24/2022 [facility] [address] [place], [place] [address]Q5J-RNOJSPKAIRXWSWI5169-4kSR78595-8654 mg/dL06/24/2022 [facility] [address] [place], [place] [address]SVI44339IBA73927-09.130 uIU/mL06/24/2022 [facility] [address] [place], [place] [address]SIYG 14 (METABOLIC PANEL)17310Ypadfad3814-604 mg/dL06/24/2022 [facility] [address] [place], [place] [address]OQWQ 14 (METABOLIC PANEL)02568EIN8029-580 mg/dL06/24/2022 [facility] [address] [place], [place] [address]TKDI 14 (METABOLIC PANEL)28258Fpytzerzrl3236-81.8 mg/dL06/24/2022 [facility] [address] [place], [place] [address]MCWR 14 (METABOLIC PANEL)92013JXL/Creat Wfrze9772-136.709 [facility] [address] [place], [place] [address]GQFS 14 (METABOLIC PANEL)56882APY Qlqcfilvp99074-799 mL/min/1.73m2 06/24/2022 [facility] [address] [place], [place] [address]ONCX 14 (METABOLIC PANEL)47467Bzvhgv3132-7500 mmol/L06/24/2022 [facility] [address] [place], [place] [address]HSFO 14 (METABOLIC PANEL)05096Tvgmmsdlw9314-47.2 mmol/L06/24/2022 [facility] [address] [place], [place] [address]WMAO 14 (METABOLIC PANEL)11146Aqerkscb5705-8734 mmol/L06/24/2022 [facility] [address] [place], [place] [address]HZYJ 14 (METABOLIC PANEL)13432Quddp VH68929-417 mmol/L06/24/2022 [facility] [address] [place], [place] [address]RSTK 14 (METABOLIC PANEL)35296Ptzwhyyzrh Serum Igqgykyryj57456-6618 mOsm/kg06/24/2022 [facility] [address] [place], [place] [address]NNPL 14 (METABOLIC PANEL)67892Hfqpp Tyd0481-157.2 mEq/L06/24/2022 [facility] [address] [place], [place] [address]YAPX 14 (METABOLIC PANEL)16517Kzjpgjq67457-79.7 g/dL06/24/2022 [facility] [address] [place] [address]BNFY 14 (METABOLIC PANEL)13918Xkalx Khrxghg5177-26.2 g/dL06/24/2022 [facility] [address] [place] [address]XELZ 14 (METABOLIC PANEL)19672Gymhzlmo8652-75.5 g/dL06/24/2022 [facility] [address] [place] [address] 199[address]UGKQ 14 (METABOLIC PANEL)57678Iqeguzb/Globulin Qfyjt4413-91.1 06/24/2022 [facility] [address] [place] [address] 47[address]BMVZ 14 (METABOLIC PANEL)87180ZQF UIEJ8380-407.00 U/L06/24/2022 [facility] [address] [place], [place] [address]JTEE 14 (METABOLIC PANEL)77483TBVW/MFK9843-184 U/L06/24/2022 [facility] [address] [place], [place] [address]DAVU 14 (METABOLIC PANEL)96087NMQL/WDV2612-936 U/L06/24/2022 [facility] [address] [place] [address] 46[address]PQQO 14 (METABOLIC PANEL)11072Ecmtq Pyzivuvhk5777-38.4 mg/dL 06/24/2022 [facility] [address] [place], [place] [address]AVES 14 (METABOLIC PANEL)19974Fzbfive42233-55.6 mg/dL06/24/2022 [facility] [address] [place], [place] [address]ZQAO 14 (METABOLIC PANEL)88329Zgnrmydcm Zrjnuqa99542-181.0 mg/dL 06/24/2022 [facility] [address] [place], [place] [address]LEEZZLNBANSX (URINE)18084Yhsmmnnlxxgv27210-14.6 mg/dL06/24/2022 [facility] [address] [place], [place] [address]TNJDDTVLWOJU (URINE)57120Ivrsaajsqmqw/Creatinine Xuxzg69385-21 MCG/ZHTNVQA0906/24/2022 [facility] [address] [place], [place] [address]JEMITRMHSHSR (URINE)45796Ywikr Dpyscaefsa8011-741.10 mg/dL 06/24/2022 [facility] [address] [place] [address] 12[address]BSLE 14 (METABOLIC PANEL)42095Xyckamf5797-061 mg/dL02/12/2022 [facility] [address] [place] [address] 79944WFYR 14 (METABOLIC PANEL)27472QFZ8822-191 mg/dL02/12/2022 [facility] [address] [place], [place] [address]OXUS 14 (METABOLIC PANEL)37730Fixumhfzsj9403-18.8 mg/dL02/12/2022 [facility] [address] [place], [place] [address]BZSR 14 (METABOLIC PANEL)26358CQO/Creat Cjhqj7964-678. [facility] [address] [place] [address] 79885DNVP 14 (METABOLIC PANEL)71520ALL Bkwktjlzs15297-0756 mL/min/1.73m2 02/12/2022 [facility] [address] [place], [place] [address]FWAY 14 (METABOLIC PANEL)40359Vstgqi3846-4455 mmol/L02/12/2022 [facility] [address] [place], [place] [address]VEUD 14 (METABOLIC PANEL)84701Gyamvfzjb8641-72.0 mmol/L02/12/2022 [facility] [address] [place], [place] [address]VJPQ 14 (METABOLIC PANEL)53655Ksqmcbmf0627-8994 mmol/L02/12/2022 [facility] [address] [place], [place] [address]VDHA 14 (METABOLIC PANEL)11011Acuoh US12660-088 mmol/L02/12/2022 [facility] [address] [place] [address] 01431IXDN 14 (METABOLIC PANEL)62935Hdbkv Lgq9040-846.0 mEq/L02/12/2022 [facility] [address] [place] [address] 58883OAYV 14 (METABOLIC PANEL)15692Bpsqcwcedf Serum Xgyybaahxj24118-3500 mOsm/kg02/12/2022 [facility] [address] [place] [address] 37399KIIE 14 (METABOLIC PANEL)81955Dnaxkea49392-48.8 g/dL02/12/2022 [facility] [address] [place] [address] 97687HWQD 14 (METABOLIC PANEL)45848Ymxxs Wwtnvcc6022-94.4 g/dL02/12/2022 [facility] [address] [place] [address] 74772NSEA 14 (METABOLIC PANEL)12865Thrkvsnp5934-54.6 g/dL02/12/2022 [facility] [address] [place] [address] 01317QJHK 14 (METABOLIC PANEL)58273Olaqutk/Globulin Jafke0310-45.1 02/12/2022 [facility] [address] [place] [address] 68692IOVA 14 (METABOLIC PANEL)25676UWB GCXE3244-092.00 U/L02/12/2022 [facility] [address] [place] [address] 04048ODKY 14 (METABOLIC PANEL)12925OKQF/PCX0662-254 U/L02/12/2022 [facility] [address] [place] [address] 61558FOUA 14 (METABOLIC PANEL)99177ZTEQ/UNE6587-797 U/L02/12/2022 [facility] [address] [place] [address] 98018NDOO 14 (METABOLIC PANEL)25967Oogdm Xspfckpfp6990-75.4 mg/dL 02/12/2022 [facility] [address] [place], [place] [address]QHOK 14 (METABOLIC PANEL)02871Gorfxpy67868-09.5 mg/dL02/12/2022 [facility] [address] [place], [place] [address]FRYZ 14 (METABOLIC PANEL)15637Kmespknpd Klbztiw42354-39.8 mg/dL 02/12/2022 [facility] [address] [place], [place] [address]HHGIRX LDL - BBEY08715DKZ-Hnfniv26679-4334 mg/dL02/12/2022 [facility] [address] [place] 28[address]M5R-IIPIXABFPGXJHYY5081-3Bfyqg HGB V9I34739-34.6 %02/12/2022 [facility] [address] 969[address]D0Z-CBHAEGBTRPRZFAI9340-2dNK90706-8907 mg/dL02/12/2022 [facility] [address] [place] [place] [address]IMIVODLQ CBC W/ DIFF CNT89151AVJ8921-63.1 K/ul11/03/2021 [facility] [address] [place] [address]WTZOHQYN CBC W/ DIFF KDE49480YOE751-23.43 M/uL11/03/2021 [facility] [address] [place] [place] [address]ILPVTVKP CBC W/ DIFF JPV61339Nqgpgfhwph714-036.9 g/dL11/03/2021 [facility] [address] [place] [address]SCMNADAZ CBC W/ DIFF GNC98642Oklksowdwl1475-756.0 %11/03/2021 [facility] [address] [place] [address]UWMNFEST CBC W/ DIFF SIA52151HII178-883.3 fL11/03/2021 [facility] [address] [address]NQCMELWT CBC W/ DIFF KXE17607CZR505-885.8 pg11/03/2021 [facility] [address] [place] [address]RMFKBWFZ CBC W/ DIFF XTX93358CWNI016-919.0 g/dL11/03/2021 [facility] [address] [place] [address]VCQVPWNU CBC W/ DIFF MJC97700SCW011-250.9 %11/03/2021 [facility] [address] [place] [address]LICUNFVX CBC W/ DIFF SRW36171Vdqnpjby Uflny210-9553 K/uL11/03/2021 [facility] [address] [place] [address]FBYVSRLF CBC W/ DIFF KUU77018AHV25347-36.8 fL11/03/2021 [facility] [address] [place], [place] [address]TIGOWRWR CBC W/ DIFF DOY26320Lgzbfjmasci %770-865.5 %11/03/2021 [facility] [address] [place], [place] [address]WNIAFJIL CBC W/ DIFF NDT50316Mjgbazooyzw %736-925.8 %11/03/2021 [facility] [address] [place], [place] [address]CZYSRFLZ CBC W/ DIFF ZGW82975Mkvqmfcaz %5905-57.1 %11/03/2021 [facility] [address] [place], [place] [address]ZVKKWSYC CBC W/ DIFF YDE69204Gngpecyxbrh %713-81.0 %11/03/2021 [facility] [address] [place], [place] [address]OZYDBUXB CBC W/ DIFF TJF14566Yodpbzfta%706-20.6 %11/03/2021 [facility] [address] [place], [place] [address]QABQCKPQ CBC W/ DIFF MMD48548Croooahw Hjxvngdwst788-86154 /ul 11/03/2021 [facility] [address] [place], [place] [address]XVYVOGQU CBC W/ DIFF VBY03291Xrsklwfr Zgwqyfyxan00625-10474 /ul 11/03/2021 [facility] [address] [place], [place] [address]CUHLZZTM CBC W/ DIFF RGB72461Ffibzqpy Wntuyqlk823-1781 /ul 11/03/2021 [facility] [address] [place], [place] [address]YCFBSLEA CBC W/ DIFF IQW31396Yqogyico Rhgflfylfk961-515 /ul 11/03/2021 [facility] [address] [place], [place] [address]ZYDHFKJZ CBC W/ DIFF STV86805Gaaudnnl Juckapds463-861 /ul11/03/2021 [facility] [address] [place], [place] [address]UDDENAQ B-4341218Jpbofwj P727276-3379 pg/mL11/03/2021 [facility] [address] [place], [place] [address]LSAY 14 (METABOLIC PANEL)97789Bubkbcn5276-4699 mg/dL11/03/2021 [facility] [address] [place], [place] [address]JNJS 14 (METABOLIC PANEL)06665MDN7772-742 mg/dL11/03/2021 [facility] [address] [place], [place] [address]QDQT 14 (METABOLIC PANEL)31805Iiyaeyeowb9551-57.7 mg/dL11/03/2021 [facility] [address] [place], [place] [address]DGAI 14 (METABOLIC PANEL)51882FZR/Creat Xhexy4930-212.502 [facility] [address] [place], [place] [address]MREN 14 (METABOLIC PANEL)64173LLV Bcpqijaww41287-6402 mL/min/1.73m2 11/03/2021 [facility] [address] [place], [place] [address]COYG 14 (METABOLIC PANEL)38555Iddijl7670-9329 mmol/L11/03/2021 [facility] [address] [place] [address]FNAV 14 (METABOLIC PANEL)82915Plcqwswpn1687-12.6 mmol/L11/03/2021 [facility] [address] [place] [address]WGPD 14 (METABOLIC PANEL)66821Tmvcmnnb2190-0152 mmol/L11/03/2021 [facility] [address] [place], [place] [address]RZKJ 14 (METABOLIC PANEL)60325Tpuoe DY09776-374 mmol/L11/03/2021 [facility] [address] [place] [address] 13213AXKV 14 (METABOLIC PANEL)70849Qfyfp Oil6235-189.6 mEq/L11/03/2021 [facility] [address] [place] [address] 67854TUYF 14 (METABOLIC PANEL)67637Lfskqhcdjy Serum Ryqhwiutnz14390-3052 mOsm/kg11/03/2021 [facility] [address] [place], [place] [address]WZMD 14 (METABOLIC PANEL)59312Swzlwkl89441-46.6 g/dL11/03/2021 [facility] [address] [place] [address]CEFT 14 (METABOLIC PANEL)39174Jidoz Wquuzox8138-34.8 g/dL11/03/2021 [facility] [address] [place] [address] 12367FCNV 14 (METABOLIC PANEL)43244Ihqxgucx7178-71.2 g/dL11/03/2021 [facility] [address] [place], [place] [address]OBYE 14 (METABOLIC PANEL)74595Olonijr/Globulin Ihpxg3592-97.1 11/03/2021 [facility] [address] [place], [place] [address]WZVC 14 (METABOLIC PANEL)11488RWK UZMX5862-685.00 U/L11/03/2021 [facility] [address] [place], [place] [address]WUNJ 14 (METABOLIC PANEL)58823URAY/SNS3964-262 U/L11/03/2021 [facility] [address] [place], [place] [address]UIQX 14 (METABOLIC PANEL)04524XEWL/MNW7206-374 U/L11/03/2021 [facility] [address] [place], [place] [address]HNWJ 14 (METABOLIC PANEL)18433Ypgma Ffheahceu6713-95.3 mg/dL 11/03/2021 [facility] [address] [place], [place] [address]IWQZ 14 (METABOLIC PANEL)83672Tbtqkhh33160-67.2 mg/dL11/03/2021 [facility] [address] [place], [place] [address]GBVL 14 (METABOLIC PANEL)08056Yoakymevq Ovmtkiz52984-60.7 mg/dL 11/03/2021 [facility] [address] [place], [place] [address]VHKPLB LDL - RPSX95027UJT-Xoedkg03838-4327 mg/dL11/03/2021 [facility] [address] [place] [address] 36694VUR - AKQU59096VKG0848-004 mg/dL11/03/2021 [facility] [address] [place] [address] 64092RQQ - HVXN91336HSO53900-993 %11/03/2021 [facility] [address] [place] [address] 51301D5P-NRRUPPKXYXPIVKI1398-3Cgexy HGB J4L42495-35.6 %11/03/2021 [facility] [address] [place], [place] [address]E1L-TYIMVACLEZDWZZJ6757-6aGH96184-9949 mg/dL11/03/2021 [facility] [address] [place], [place] [address]MAHFHVEQXH73298Mazdhmcxfx50852-326 mg/dL11/03/2021 [facility] [address] [place], [place] [address]VYAFQASKU24383Dafojvnil87830-51.3 mg/dL11/03/2021 [facility] [address] [place], [place] [address]EQP85284SDM4090-3866.5 pg/mL11/03/2021 [facility] [address] [place], [place] [address]TXH84933JUR68552-69.390 uIU/mL11/03/2021 [facility] [address] [place], [place] [address]XOAIDYW T67828Iuqixbq Y58217-921.4 ng/mL11/03/2021 [facility] [address] [place], [place] [address]BGIXTDSWEVJ01146Kiamdujwjzc6866-4276 mg/dL11/03/2021 [facility] [address] [place], [place] [address]MYLUUNTAMLPRH70725Iaodrumqowneh9772-0651 mg/dL11/03/2021 [facility] [address] [place], [place] [address]QLEKGMTRJPRVX79763SSIB75657-648 mg/dL11/03/2021 [facility] [address] [place], [place] [address]WOPEBOVFTRKM (URINE)84552Kzrxesdgjpni28909-2BL SPECIMEN RECEIVED mg/dL04/04/20[address] [facility] [address] [place] [address] 79942STGIOPRFXQSO (URINE)95056Pwkeigoipemp/Creatinine Gwrle06306-7KD SPECIMEN RECEIVED MCG/VVANHZI3604/04/2021 [facility] [address] [place] [address] 43591XCDKALFACDEN (URINE)73495Bbsjj Ptiajlnqsh1844-9NL SPECIMEN RECEIVED mg/dL04/04/2021 [facility] [address] [place] [address] 44902YGIPWZP E-VDUOCNQH59220ZKL Euhzyyi2788-89.11 g/dL02/09/2021 [facility] [address] [place], [place] [address]TPRFYCE E-IYPQPLHQ92899IHJ Alpha 68051-01.19 g/dL02/09/2021 [facility] [address] [place], [place] [address]QZEFLUT E-DYXFJSNI61236ZJW Alpha 57685-28.76 g/dL02/09/2021 [facility] [address] [place], [place] [address]ZIJJVJD E-CCJTZLBF67817VHA Beta 11788-40.52 g/dL02/09/2021 [facility] [address] [facility] [place], [place] [address]COXMVLQ E-FJPHUXGH05305QES Beta 61291-17.39 g/dL02/09/2021 [facility] [address] [facility] [place] [address]CTMHMHN E-HNIHVORE53826YKB Lkhym5103-36.73 g/dL02/09/2021 [facility] [address] [place], [place] [address]ZEHLTXA E-GHWPLVDX91112LDC Pathology Mwrenvx16394-9Spragw pattern.Meet Costa MD (Clinical Pathologist)02/09/2021 [facility] [address] [place], [place] [address]ZKBTQAOYTKIQDE (CHANTE)71849Nhvno IgM Vsio00282-6Rbtjmh99/10/2021 [facility] [address] [place], [place] [address]IEFQTQLXOGWYFI (CHANTE)75772Xtkpe IgG Kmlx43668-2Ndfyrs91/10/2021 [facility] [address] [place], [place] [address]KVSUPYCRSNXAWD (CHANTE)62551Cszsf IgA Mplv22768-9Qutkjq97/10/2021 [facility] [address] [place], [place] [address]DNMPAZWMFQOUSZ (CHANTE)94682Lsfwz [place] Rbie00974-5Nnxmcg44/10/2021 [facility] [address] [place], [place] [address]TMSPTHEMGQHFEA (CHANTE)77136Ufmov Lambda Sscf35007-8Weyltv11/10/2021 [facility] [address] [place] [address] 81631RHNJCYWFRGNRGS (CHANTE)28656OWV Pathology Pvszeqy16257-4Muzcdfkw serum Immunofixation. Meet Costa MD (Clinical Pathologist)02/09/2021 [facility] [address] [place] [address] 67790Swidfkgjh nbgrs78377Tjatxjpsx A IgM (Acute)72151-6Rdw-dqipqeel (Negative)02/05/2021 [facility] [address] [place], [place] [address]Ycxwhqcpm xaskt78481Bcgecpftu B Surface Pzwjjhu4417-0Tmh-Clzuablt (Negative)02/05/2021 [facility] [address] [place], [place] [address]Mxnwqmaeq eacjs69434Xmspcetyq B Core Antibody (IgM)52601-4Ber- Reactive (Negative)02/05/2021 [facility] [address] [place] [address] 863[address]Ywejfqxki crzcl56706Ahameqdvp C IgG Nqybruzv34485-0Rin-Tiwfzryu (Negative)02/05/2021 [facility] [address] [place], [place] [address]QDI82772d7ZLO3192-5635 mg/dL02/05/2021 [facility] [address] [place], [place] [address]TIW46632x6DNI7147-0446 mg/dL02/05/2021 [facility] [address] [place], [place] [address]RJT31035i0YKL8704-0561 mg/dL02/05/2021 [facility] [address] [place], [place] [address]RXBW 14 (METABOLIC PANEL)58492Jcelirq6743-737 mg/dL01/30/2021 [facility] [address] [place], [place] [address]WKDE 14 (METABOLIC PANEL)18848GWR5307-273 mg/dL01/30/2021 [facility] [address] [place], [place] [address]EPCY 14 (METABOLIC PANEL)36855Jbabotykpd5200-27.7 mg/dL01/30/2021 [facility] [address] [place], [place] [address]LNZF 14 (METABOLIC PANEL)47415NEK/Creat Amffj4009-059.604 [facility] [address] [place], [place] [address]KZRR 14 (METABOLIC PANEL)54993DII Dldwucqzw95394-988 mL/min/1.73m2 01/30/2021 [facility] [address] [place], [place] [address]UOQJ 14 (METABOLIC PANEL)90431ONX Estimated for Americans [address] mL/min/1.57s51201/30/2021 [facility] [address] [place], [place] [address]UBCA 14 (METABOLIC PANEL)41369Vevuak8207-5444 mmol/L01/30/2021 [facility] [address] [place], [place] [address]SXFE 14 (METABOLIC PANEL)15969Ovlwrribi6844-06.0 mmol/L01/30/2021 [facility] [address] [place], [place] [address]KDVP 14 (METABOLIC PANEL)64234Omtarxbe0438-2932 mmol/L01/30/20[address] [facility] [address] [place] [address] 816[address]KSJJ 14 (METABOLIC PANEL)95938Rkunc BA75896-769 mmol/L01/30/2021 [facility] [address] [place] [address] 21826RPFE 14 (METABOLIC PANEL)31613Ghsapbwgpu Serum Gdwnzsnayn49508-4193 mOsm/kg01/30/2021 [facility] [address] [place] [address] 75[address]TAHV 14 (METABOLIC PANEL)499[address]Zyxqq Zro4936-201.0 mEq/L01/30/2021 [facility] [address] [place] [address] 524[address]PIFB 14 (METABOLIC PANEL)77530Krqubvg40315-63.4 g/dL01/30/2021 [facility] [address] [place] [address] 735[address]VPQL 14 (METABOLIC PANEL)21903Pcljl Qyhhdas5430-33.7 g/dL01/30/2021 [facility] [address] [place] [address] 564[address]RJEJ 14 (METABOLIC PANEL)09798Clcwmkup2963-41.3 g/dL01/30/2021 [facility] [address] [place] [address] 17631ZIRG 14 (METABOLIC PANEL)59779Nqwmhev/Globulin Zkatk9708-94.0 01/30/2021 [facility] [address] [place] [address] 033[address]STKK 14 (METABOLIC PANEL)25832LDF TWFI8629-7486.00 U/L01/30/2021 [facility] [address] [place] [address] 069[address]CKWN 14 (METABOLIC PANEL)41928UXYZ/KAN8706-167 U/L01/30/2021 [facility] [address] [place] [address] 569[address]DYHZ 14 (METABOLIC PANEL)66692VOHJ/OTQ8483-2793 U/L01/30/2021 [facility] [address] [place] [address] 11391APDR 14 (METABOLIC PANEL)51217Pbnii Wvenevkfc2621-51.3 mg/dL 01/30/2021 [facility] [address] [place], [place] [address]TXWF 14 (METABOLIC PANEL)04486Iweddsq57433-27.1 mg/dL01/30/2021 [facility] [address] [place] [address] 71935EFPL 14 (METABOLIC PANEL)35111Byvhbfjcw Vczklmi69205-72.7 mg/dL 01/30/2021 [facility] [address] [facility] [place], [place] [address]ZHCCNXG B-7306144Chhqsoc K802209-7520 pg/mL01/30/2021 [facility] [address] [facility] [place], [place] [address]CEZ37536DVF28362-71.830 uIU/mL01/30/2021 [facility] [address] [facility] [address]HYWYKZQI CBC W/ DIFF TWK76859NCC7053-37.5 K/ul01/30/2021 [facility] [address] [place], [place] [address]QUXSKFEX CBC W/ DIFF PTH89385VEU935-96.08 M/uL01/30/2021 [facility] [address] [place], [place] [address]WHXJURWF CBC W/ DIFF HIY08807Ffkpwcqofe302-970.4 g/dL01/30/2021 [facility] [address] [place], [place] [address]FSQWMPXS CBC W/ DIFF OHJ16386Waevclizka7542-900.6 %01/30/2021 [facility] [address] [place], [place] [address]QUFAKRGR CBC W/ DIFF GFT44321HLH502-040.7 fL01/30/2021 [facility] [address] [place], [place] [address]HQIAUKKS CBC W/ DIFF RVT80399JTP441-367.9 pg01/30/2021 [facility] [address] [place], [place] [address]PRTKLRWA CBC W/ DIFF BIE11651KJHW675-582.0 g/dL01/30/2021 [facility] [address] [place], [place] [address]UQYQGSKC CBC W/ DIFF OGL75046OZM819-123.3 %01/30/2021 [facility] [address] [facility] [place] [address]PICFLYNK CBC W/ DIFF SSG93028Juaaulcn Meiia185-4552 K/uL01/30/2021 [facility] [address] [place], [place] [address]UFTDHIUO CBC W/ DIFF VBS97858OZB38010-75.9 fL01/30/2021 [facility] [address] [place], [place] [address]WEKHYTFG CBC W/ DIFF RIB64497Ktltmmynnrk %770-846.6 %01/30/2021 [facility] [address] [place], [place] [address]ZGAFPBEI CBC W/ DIFF FEK99779Qgicynajeos %736-929.7 %01/30/2021 [facility] [address] [place], [place] [address]PHLFYRHU CBC W/ DIFF ELV55537Qeflqbpgi %5905-56.4 %01/30/2021 [facility] [address] [place], [place] [address]WRMVJXBP CBC W/ DIFF RKE91405Zqqgfhkrmtc %713-816.7 %01/30/2021 [facility] [address] [place], [place] [address]MRUTLLEW CBC W/ DIFF YNS06001Tqylmvwxr%706-20.6 %01/30/2021 [facility] [address] [place], [place] [address]PLGHPLAD CBC W/ DIFF HMX90074Hgdsqveo Mutxpiocks836-65725 /ul 01/30/2021 [facility] [address] [place], [place] [address]ZUNEFCKN CBC W/ DIFF EAE39952Zfgzkhsz Ogcinviwjn59697-56204 /ul 01/30/2021 [facility] [address] [place], [place] [address]VROGPAGO CBC W/ DIFF GLW28478Xiaswxpw Ftutojrj311-4457 /ul 01/30/2021 [facility] [address] [place], [place] [address]GEWFQIYE CBC W/ DIFF IRM98721Kwygildv Okwhczcslu726-91132 /ul 01/30/2021 [facility] [address] [place], [place] [address]ZHMTUQTN CBC W/ DIFF JFQ17696Eskhabbs Wszetqvd916-372 /ul01/30/2021 [facility] [address] [place], [place] [address]OZRLXRBMRQ92940Vbjqpkagww84273-079 mg/dL01/30/2021 [facility] [address] [place], [place] [address]RBNJWL83159Artwut9390-161.0 ng/mL01/30/2021 [facility] [address] [place], [place] [address]I9J-ZKAMEBTTXBEQHKP3521-9Aurkk HGB I2Y04608-63.3 %01/30/2021 [facility] [address] [place], [place] [address]F1L-NIUAWWYPXYRAIPL4568-9kDS14122-3041 mg/dL01/30/2021 [facility] [address] [place], [place] [address]WVJVKGTOAW98490Exjxmtqqhu26598-573 mg/dL11/03/2020 [facility] [address] [place], [place] [address]XWGS 14 (METABOLIC PANEL)86062Slgyyfs2473-4558 mg/dL11/03/2020 [facility] [address] [place], [place] [address]HXFU 14 (METABOLIC PANEL)30110XGW5141-605 mg/dL11/03/2020 [facility] [address] [place], [place] [address]UZUF 14 (METABOLIC PANEL)02429Apsnnmyxri8452-18.7 mg/dL11/03/2020 [facility] [address] [place], [place] [address]FGHW 14 (METABOLIC PANEL)18858TIF/Creat Ptrpq0829-114.402 [facility] [address] [place], [place] [address]LJIW 14 (METABOLIC PANEL)18788MKG Ayryxhbjd47420-904 mL/min/1.73m2 11/03/[address] [facility] [address] [place] [address] 42991QDPX 14 (METABOLIC PANEL)89006Dfxgky7135-5831 mmol/L11/03/2020 [facility] [address] [place] [address] 72687RICK 14 (METABOLIC PANEL)34196OJR Estimated for Americans [address] mL/min/1.25n48711/03/2020 [facility] [address] [place] [address] 79[address]KHCM 14 (METABOLIC PANEL)78666Tkeqwwdsn7005-76.7 mmol/L11/03/2020 [facility] [address] [place], [place] [address]WPWV 14 (METABOLIC PANEL)96362Ywlribfn7695-8828 mmol/L11/03/2020 [facility] [address] [place], [place] [address]EDOT 14 (METABOLIC PANEL)94260Bylbx PV92091-773 mmol/L11/03/[address] [facility] [address] [place] [address] 333[address]JJCB 14 (METABOLIC PANEL)76429Erhvd Ohm1463-385.7 mEq/L11/03/2020 [facility] [address] [place], [place] [address]XQYS 14 (METABOLIC PANEL)94260Mpqsvlpajm Serum Ttvoffabnn05853-0463 mOsm/kg11/03/[address] [facility] [address] [place] [address] 679[address]WBAN 14 (METABOLIC PANEL)45506Fzmkwbg14127-14.7 g/dL11/03/[address] [facility] [address] [place] [address] 37278QVPK 14 (METABOLIC PANEL)77579Xjrcp Zbhifxb6437-08.9 g/dL11/03/[address] [facility] [address] [place] [address] 55322XAKR 14 (METABOLIC PANEL)80860Pgrjnuku0642-19.2 g/dL11/03/2020 [facility] [address] [place], [place] [address]KPAP 14 (METABOLIC PANEL)57037Tlqwgbw/Globulin Chsud6196-76.2 11/03/2020 [facility] [address] [place] [address] 09465UQWN 14 (METABOLIC PANEL)62789WME WNMZ4371-148.00 U/L11/03/[address] [facility] [address] [place] [address] 31054FUIQ 14 (METABOLIC PANEL)97364WFYY/IRL4854-166 U/L11/03/2020 [facility] [address] [place] [address] 30527ZEEH 14 (METABOLIC PANEL)77342MDVL/WKS6394-573 U/L11/03/[address] [facility] [address] [place] [address] 56805HAFG 14 (METABOLIC PANEL)16350Olvjr Wytflzlbg5907-07.3 mg/dL 11/03/2020 [facility] [address] [place] [address] 98281FVVI 14 (METABOLIC PANEL)39257Kkchkpz02655-30.0 mg/dL11/03/2020 [facility] [address] [place], [place] [address]CYES 14 (METABOLIC PANEL)23193Xttffxoqz Ijfnnps32648-52.4 mg/dL 11/03/2020 [facility] [address] [place] [address] 24996XETVELXJL31932Redrwqfkk77572-29.6 mg/dL11/03/2020 [facility] [address] [place], [place] [address]C6N-AHMCQIEMJEKMTOT8714-7Kxuda HGB I0J14639-56.6 %11/01/2020 [facility] [place], [place] [address]Y9R-PCSVABXSMCLCRIF6642-0hTG93011-4969 mg/dL11/01/2020 [facility] [address] [facility] [place] [address]Gf OrdersNo OrdersNo Zjjfct304 [facility] [address] [place], [place] [address]Bdeufb Molecular UTI TestRMUTIMolecular UTI TestSEE ATTACHMENT APPROVAL XVDRJBJ7010/01/2020 [facility] [address] [place], [place] [address]DBB50668MDO1490-967.8 pg/mL09/29/2020 [facility] [address] [place], [place] [address]J1J-MHLMJFXGORDXQUQ8701-6Fzdwc HGB H5E91901-7XYA COMMENT % 09/27/2020 [facility] [address] [place], [place] [address]K6A-YMDXOHQVNHEIGLA4739-6gAT53173-2NNI COMMENT mg/dL09/27/2020 [facility] [address] [place], [place] [address]ROCJ 14 (METABOLIC PANEL)83948Ugmpzkw0736-3267 mg/dL09/27/2020 [facility] [address] [place], [place] [address]RYQP 14 (METABOLIC PANEL)44112EMV5670-693 mg/dL09/27/2020 [facility] [address] [place], [place] [address]QOFN 14 (METABOLIC PANEL)65217Vicvjhzzko6918-70.8 mg/dL09/27/2020 [facility] [address] [place], [place] [address]UROJ 14 (METABOLIC PANEL)55852IRO/Creat Vtdqw0041-802.9111/28/2019 [facility] [address] [place], [place] [address]YNVU 14 (METABOLIC PANEL)17933KMC Yuymfhles81167-920 mL/min/1.73m2 09/27/2020 [facility] [address] [place], [place] [address]WYRV 14 (METABOLIC PANEL)48600Wwsgef0806-1878 mmol/L111/28/2019 [facility] [address] [place], [place] [address]HEAV 14 (METABOLIC PANEL)10193OSN Estimated for Americans 19670-127 mL/min/1.33l96909/27/2020 [facility] [address] [place], [place] [address]PRMA 14 (METABOLIC PANEL)61504Ymwywzian7376-24.2 mmol/L111/28/2019 [facility] [address] [place], [place] [address]IGWZ 14 (METABOLIC PANEL)53103Illfjcni8130-3376 mmol/L111/28/2019 [facility] [address] [place], [place] [address]IXSM 14 (METABOLIC PANEL)81473Tcdox SW29661-186 mmol/L111/28/2019 [facility] [address] [place], [place] [address]HLOZ 14 (METABOLIC PANEL)96791Tixcgjzuvt Serum Kvfdhhauyv29074-5139 mOsm/kg09/27/[address] [facility] [address] [place] [address] 25587VASH 14 (METABOLIC PANEL)51940Hfkve Wja7640-602.2 mEq/L111/28/2019 [facility] [address] [place] [address] 244[address]KUYU 14 (METABOLIC PANEL)97444Ayghfpt84522-40.0 g/dL09/27/2020 [facility] [address] [place] [address] 85331IATG 14 (METABOLIC PANEL)00664Xiqzw Fvefelu2431-72.7 g/dL09/27/[address] [facility] [address] [place] [address] 41007DJQC 14 (METABOLIC PANEL)03659Dwqewwil7835-57.7 g/dL09/27/[address] [facility] [address] [place] [address] 55699VEOX 14 (METABOLIC PANEL)31141Eizfbtt/Globulin Mrnmk9954-26.1 09/27/2020 [facility] [address] [place] [address] 53577HYOK 14 (METABOLIC PANEL)04215QVW TURM5981-533.00 U/L111/28/2019 [facility] [address] [place] [address] 59520LFDV 14 (METABOLIC PANEL)01476DCFZ/AFI5431-701 U/L111/28/2019 [facility] [address] [place], [place] [address]FJDS 14 (METABOLIC PANEL)57702OAGK/SLV2644-207 U/L111/28/2019 [facility] [address] [place], [place] [address]UPZR 14 (METABOLIC PANEL)36931Wbsck Bhnahhgcz8738-09.5 mg/dL 09/27/2020 [facility] [address] [place], [place] [address]OJCU 14 (METABOLIC PANEL)82556Mjtplal33726-68.4 mg/dL09/27/2020 [facility] [address] [address]KJLO 14 (METABOLIC PANEL)09294Ojyjqhfjr Reppcdr04167-08.6 mg/dL 09/27/2020 [facility] [address] [address]Bmjvrl UA to Molecular UTI Scwr71011ZDbqigrt1003-7QTX COMMENT mg/dL 09/27/2020 [facility] [address] [place] [address]Pwssxk UA to Molecular UTI Csih41329TAovypjzJNU COMMENT mg/dL 09/27/2020 [facility] [address] [place] [address]Hlnlvb UA to Molecular UTI Cxpb74699JIluyirektZYA COMMENT mg/dL 09/27/2020 [facility] [address] [place] [address]Liooeu UA to Molecular UTI Skaq66054COwsnmycolpbpIKI COMMENT mg/dL 09/27/2020 [facility] [address] [place] [address]Iaoggf UA to Molecular UTI Nsvr36443IIqVYQ DFOPVAK7509/27/2020 [facility] [address] [place] [address]Ycjlxb UA to Molecular UTI Cfyr45052BBnqrqHXN COMMENT mg/dL 09/27/2020 [facility] [address] [address]Einykl UA to Molecular UTI Fxye51858TJuggihjCES COMMENT mg/dL 09/27/2020 [facility] [address] [address]Zyvahq UA to Molecular UTI Gwrr62546KBswetxjFCQ VMUKFYL9209/27/2020 [facility] [address] [address]Pemolb UA to Molecular UTI Uxey86190RGfglkprnzgAGG COMMENT WBCs/uL 09/27/2020 [facility] [address] [address]Zqnrvl UA to Molecular UTI Ldgk18939VJilxmorDQO TXVGWZQ5409/27/2020 [facility] [address] [address]Dusabp UA to Molecular UTI Ahcb56647BHpjajlnc GravitySEE COMMENT 09/27/2020 [facility] [address] [address]90[address]Qcmclf UA to Molecular UTI Cptr42258YXwzncUSX YIPLPQQ1409/27/2020 [facility] [address] 256[address]Oumgbq UA to Molecular UTI Bhar47359JJsztepcf AcidSEE COMMENT mg/dL 09/27/2020 [facility] [address] [place], [place] [address]FRZWAAEBIGPK (URINE)16420Yflyllyivjzi37249-11.7 mg/dL09/27/2020 [facility] [address] [address]LUBXXYQAGVGN (URINE)68806Whzyneshvuir/Creatinine Jbgxc89999-107 MCG/OBHFRBA45/26/2020 [facility] [address] [place], [place] [address]TQACOOLBAENF (URINE)92991Onqkq Ltlbccpsrp8159-2720.00 mg/dL 09/27/2020 [facility] [address] Jose [place], [place] [address]JCDKVZW B-6588276Qmpnula Z005534-0260 pg/mL06/13/2020 [facility] [address] [place], [place] [address]DNVEVY LDL - SLKT02823LOB-Icexbl61306-7402 mg/dL06/13/2020 [facility] [address] [facility] [place] [address]SEJBBGERAF73978Yqxjztfvhc55531-581 mg/dL06/13/2020 [facility] [address] [place], [place] [address]XFI41218TOT31829-15.731 uIU/mL06/13/2020 [facility] [address] [place], [place] [address]KCTJAHUQGCCQQ98928Fwjbuantynvtm6549-0627 mg/dL06/13/2020 [facility] [address] [place], [place] [address]XLEZUUUEXKEDH58666ASZY35360-487 mg/dL06/13/2020 [facility] [address] [place], [place] [address]SLIDESLIDE_SCANPlatelet Rsgozavt8541-9Ychias18/11/2020 [facility] [address] [place], [place] [address]SLIDESLIDE_SCANPoikilocytosis779-92+06/13/2020 [facility] [address] [place], [place] [address]SLIDESLIDE_SCANEchinocytes7790-91+06/13/2020 [facility] [address] [place], [place] [address]SLIDESLIDE_SCANElliptocytes11274-81+06/13/2020 [facility] [address] [facility] [address] [address]P8K-DNFNFHGSTPILEOD9353-2Fkbtu HGB Q2X12358-52.5 %06/13/2020 [facility] [address] [address]F3C-KTLRSKDRTUQIPXZ6213-5vXL25059-9584 mg/dL06/13/2020 [facility] [address] [address]WBECGPCA CBC W/ DIFF ADB14092LEX5658-552.5 K/ul06/13/2020 [facility] [address] [address]GPFJAAKH CBC W/ DIFF ZUW65544QNB905-40.34 M/uL06/13/2020 [facility] [address] [address]EQHYXQAH CBC W/ DIFF .0 g/dL06/13/2020 [facility] [address] [address]OLTNFUEV CBC W/ DIFF WKF22147Euwbswyqpk2346-430.8 %06/13/2020 [facility] [address] [place], [place] [address]SFYDKQWZ CBC W/ DIFF HQQ84219DSS379-720.5 fL06/13/2020 [facility] [address] [address]ITIBCPJT CBC W/ DIFF EPH30340HXC900-381.8 pg06/13/2020 [facility] [address] [address]EGKZTDVX CBC W/ DIFF KTT73983SSBJ235-190.0 g/dL06/13/2020 [facility] [address] [place], [place] [address]JHRJKZFL CBC W/ DIFF UBN54641GME856-917.0 %06/13/2020 [facility] [address] [place], [place] [address]MUEYDWUM CBC W/ DIFF YEX46112Zcirlshh Xshur584-1562 K/uL06/13/2020 [facility] [address] [address]QQNPLAZB CBC W/ DIFF PZS23832SLZ10875-439.0 fL06/13/2020 [facility] [address] [address]GYNAYDTH CBC W/ DIFF RTC23124Xpximxdvdln %770-884.6 %06/13/2020 [facility] [address] [place], [place] [address]KNZFFUPT CBC W/ DIFF LGZ70595Bimglqqhbxs %736-911.4 %06/13/2020 [facility] [address] [place], [place] [address]DVREAWFB CBC W/ DIFF PZD65040Fixnmpoak %5905-53.3 %06/13/2020 [facility] [address] [place], [place] [address]SDHEVEUY CBC W/ DIFF RMQ55917Csdspszmvcz %713-80.6 %06/13/2020 [facility] [address] [place], [place] [address]OZGNQUAN CBC W/ DIFF EUH09911Vmdnqgwsn%706-20.1 %06/13/2020 [facility] [address] [place], [place] [address]OUXCVEBU CBC W/ DIFF EHI39025Ozmorcgu Lrowqlqbnu874-629264 /ul 06/13/2020 [facility] [address] [place], [place] [address]MGVLMWPW CBC W/ DIFF QSH93029Ixmfbmcz Zqgxnppvzi33157-96642 /ul 06/13/2020 [facility] [address] [place], [place] [address]HWEYSFRF CBC W/ DIFF OFW58134Wtieingy Kjxieqqu156-4274 /ul 06/13/2020 [facility] [address] [place], [place] [address]DJKLFJEL CBC W/ DIFF PUC90936Oroqnhmv Dlzrzdzyzo286-282 /ul 06/13/2020 [facility] [address] [place], [place] [address]FZNNVTOQ CBC W/ DIFF GUW51982Ppowvgid Ofgsucgu739-142 /ul06/13/2020 [facility] [address] [place], [place] [address]UGSANLJUPGO18779Qdsqdtvqkkj8155-6213 mg/dL06/13/2020 [facility] [address] [place], [place] [address]BNIL 14 (METABOLIC PANEL)08345Xlapgno7171-166 mg/dL06/13/2020 [facility] [address] [place], [place] [address]BDUX 14 (METABOLIC PANEL)87716THT9547-934 mg/dL06/13/2020 [facility] [address] [place], [place] [address]IIMP 14 (METABOLIC PANEL)92195Ugsafftyba3587-85.8 mg/dL06/13/2020 [facility] [address] [place], [place] [address]IXMQ 14 (METABOLIC PANEL)32463BXV/Creat Qdlgx4516-418.109 [facility] [address] [place] [address] 14924HNAJ 14 (METABOLIC PANEL)49551TEG Lhankyiez89810-968 mL/min/1.73m2 06/13/[address] [facility] [address] [place] [address] 71023IJQT 14 (METABOLIC PANEL)70916Evqtyl3237-2362 mmol/L06/13/2020 [facility] [address] [place], [place] [address]AAQY 14 (METABOLIC PANEL)98213MIC Estimated for Americans 88710-640 mL/min/1.69f64706/13/[address] [facility] [address] [place] [address] 29226NSZI 14 (METABOLIC PANEL)89747Fsygyicdv1788-65.4 mmol/L06/13/[address] [facility] [address] [place] [address] 69104DAKF 14 (METABOLIC PANEL)04223Sgzpbcme3323-0136 mmol/L06/13/2020 [facility] [address] [place] [address] 00876PHZI 14 (METABOLIC PANEL)33215Gyhfx XO49243-614 mmol/L06/13/[address] [facility] [address] [place] [address] 50506SUYP 14 (METABOLIC PANEL)09432Sllpohkmax Serum Pezjmcpjdf19469-8618 mOsm/kg06/13/[address] [facility] [address] [place] [address] 83063QXDW 14 (METABOLIC PANEL)21265Szhfi Ejo3277-276.4 mEq/L06/13/2020 [facility] [address] [place] [address] 95351AODH 14 (METABOLIC PANEL)69886Drkgskd95340-22.8 g/dL06/13/[address] [facility] [address] [place] [address] 74994RIDR 14 (METABOLIC PANEL)52986Cnhvx Yjwbwbx3406-95.1 g/dL06/13/[address] [facility] [address] [place] [address] 40958DYCG 14 (METABOLIC PANEL)06515Aglbtsoj5088-32.3 g/dL06/13/2020 [facility] [address] [place] [address] 58617FWEL 14 (METABOLIC PANEL)46002Eekeuyn/Globulin Racss7774-51.2 06/13/[address] [facility] [address] [place] [address] 21416MHTJ 14 (METABOLIC PANEL)69023EDX RXBU5008-187.00 U/L06/13/2020 [facility] [address] [place], [place] [address]JJYD 14 (METABOLIC PANEL)78320IWCT/JWB7081-85 U/L06/13/2020 [facility] [address] [place], [place] [address]VSRN 14 (METABOLIC PANEL)00434LOTB/DOP7627-700 U/L06/13/2020 [facility] [address] [facility] [place] [address]KBHW 14 (METABOLIC PANEL)07037Gxifm Pytcokyfj4961-13.3 mg/dL 06/13/2020 [facility] [address] [place], [place] [address]HCGR 14 (METABOLIC PANEL)50704Xigahsv84503-29.2 mg/dL06/13/2020 [facility] [address] [facility] [place] [address]CUHS 14 (METABOLIC PANEL)65333Qhnqjivxm Xfdpfpj37619-58.5 mg/dL 06/13/2020 [facility] [address] [place], [place] [address]BRYZYYK K19828Amepkiy N02399-873.1 ng/mL06/13/2020 [facility] [address] [place], [place] [address]DRJ - DXFW18732JXN2018-251 mg/dL06/13/2020 [facility] [address] [facility] [place] [address]CDO - BOZW94774UIT85292-022 %06/13/2020 [facility] [address] [place], [place] [address]Da OrdersNo OrdersNo Agdrje313 [facility] [address] [facility] [place], [place] [address]W9Z-DIQTTHUSUYVLJFN0662-4Fakbs HGB M0X82972-72.6 %04/14/2020 [facility] [address] [place], [place] [address]J9Y-USTEXEJXAPYYRBB0841-4rOK61656-6916 mg/dL04/14/2020 [facility] [address] [facility] [place] [address]BFTU 14 (METABOLIC PANEL)97841Golnotn4442-689 mg/dL04/14/2020 [facility] [address] [place], [place] [address]EVJV 14 (METABOLIC PANEL)25935YVG1188-066 mg/dL04/14/2020 [facility] [address] [place], [place] [address]QNIR 14 (METABOLIC PANEL)99473Aczvboleie6626-81.6 mg/dL04/14/2020 [facility] [address] [place], [place] [address]MHMY 14 (METABOLIC PANEL)86711PCW/Creat Nedih7009-945.807 [facility] [address] [place], [place] [address]AFSM 14 (METABOLIC PANEL)76198ILT Iatvfjdmr58129-4591 mL/min/1.73m2 04/14/2020 [facility] [address] [place], [place] [address]ZRKG 14 (METABOLIC PANEL)94908QDJ Estimated for Americans [address] mL/min/1.06g89904/14/2020 [facility] [address] [place], [place] [address]RIFJ 14 (METABOLIC PANEL)20594Tvheiu7798-5895 mmol/L04/14/2020 [facility] [address] [place], [place] [address]KPBO 14 (METABOLIC PANEL)59174Kgqxdzpsu6912-04.8 mmol/L04/14/2020 [facility] [address] [place], [place] [address]SNHF 14 (METABOLIC PANEL)57381Jvqdhftf1577-6443 mmol/L04/14/2020 [facility] [address] [place], [place] [address]HYQV 14 (METABOLIC PANEL)79750Aiwpd VN99864-284 mmol/L04/14/[address] [facility] [address] [place] [address] 12733KOOJ 14 (METABOLIC PANEL)21966Ghiyg Nmi8200-149.8 mEq/L04/14/2020 [facility] [address] [place], [place] [address]PFMK 14 (METABOLIC PANEL)77909Snmuncccfk Serum Bfetqcesov64294-7648 mOsm/kg04/14/2020 [facility] [address] [place], [place] [address]JGHO 14 (METABOLIC PANEL)63016Sfkqdzh66321-16.9 g/dL04/14/2020 [facility] [address] [place], [place] [address]MIGX 14 (METABOLIC PANEL)08005Pqezi Mavxjia4601-53.3 g/dL04/14/2020 [facility] [address] [place], [place] [address]VGDS 14 (METABOLIC PANEL)88851Njyeumwi3974-88.4 g/dL04/14/2020 [facility] [address] [place], [place] [address]KRCS 14 (METABOLIC PANEL)82180Zvcbeti/Globulin Vnrfl3336-51.1 04/14/2020 [facility] [address] [place], [place] [address]TQXU 14 (METABOLIC PANEL)05939TTS LMJK4744-853.00 U/L04/14/2020 [facility] [address] [place], [place] [address]VRZQ 14 (METABOLIC PANEL)25538YOYH/RFG5092-356 U/L04/14/2020 [facility] [address] [place], [place] [address]PLQO 14 (METABOLIC PANEL)13486EPLN/YQN1878-290 U/L04/14/2020 [facility] [address] [place], [place] [address]NJPZ 14 (METABOLIC PANEL)57040Fhcqd Xvznneoqv6006-94.4 mg/dL 04/14/2020 [facility] [address] [place], [place] [address]GSSX 14 (METABOLIC PANEL)36679Joxougj79197-16.9 mg/dL04/14/2020 [facility] [address] [place], [place] [address]EEIB 14 (METABOLIC PANEL)11195Trjqgimge Sjbckgq90609-15.1 mg/dL 04/14/2020 [facility] [address] [place], [place] [address]UQCRWCDNDD51321Hrmjuxdzda2174-62.9 mg/dL04/14/2020 [facility] [address] [place], [place] [address]WGUVOGJH CBC W/ DIFF LSN21121RWJ2394-457.4 K/ul04/14/2020 [facility] [address] [place], [place] [address]JYDJWNHH CBC W/ DIFF JVK89522VTD351-83.34 M/uL04/14/2020 [facility] [address] [place], [place] [address]QOBNLVQP CBC W/ DIFF YPS66631Izezkgmwzh455-423.2 g/dL04/14/2020 [facility] [address] [place], [place] [address]EVVGEDLK CBC W/ DIFF XKP05455Gyxwfzpimk6654-728.0 %04/14/2020 [facility] [address] [place], [place] [address]LMUYBCXK CBC W/ DIFF EDY66246OIL275-486.0 fL04/14/2020 [facility] [address] [place], [place] [address]LSIKTZQI CBC W/ DIFF VNB79341SIC687-793.2 pg04/14/2020 [facility] [address] [address]IFAWCBQV CBC W/ DIFF VBC05982XWWI468-413.0 g/dL04/14/2020 [facility] [address] [address]AWIFFSAL CBC W/ DIFF RNO05000PAE889-489.4 %04/14/2020 [facility] [address] [place], [place] [address]VNQQPIPF CBC W/ DIFF WAI42362Mbevtktl Ubmzm714-4113 K/uL04/14/2020 [facility] [address] [address]YSWQRUYC CBC W/ DIFF QPT93140XUN15057-30.9 fL04/14/2020 [facility] [address] [address]TATGSTSE CBC W/ DIFF LOB74124Ubozyqnypsp %770-869.6 %04/14/2020 [facility] [address] [address]REEDWWGS CBC W/ DIFF NHX62177Bshldbysesq %736-923.7 %04/14/2020 [facility] [address], [place] [address]DAMMLNME CBC W/ DIFF KPF24621Kjorslgfe %5905-56.0 %04/14/2020 [facility] [address], [place] [address]SSVBCZTO CBC W/ DIFF NKJ98733Pcvaxolazgx %713-80.2 %04/14/2020 [facility] [address] [address]VQIFHQVX CBC W/ DIFF KVF14092Gruhirnkr%706-20.5 %04/14/2020 [facility] [address] [place] [address]PCDCFONJ CBC W/ DIFF HFI64501Cthbdyin Psvkgenpja304-59044 /ul 04/14/2020 [facility] [address], [place] [address]JDKBIISC CBC W/ DIFF LUQ93323Ozvqflpu Wtbprmavay69083-43411 /ul 04/14/2020 [facility] [address], [place] [address]URGDTQMB CBC W/ DIFF FGU79062Ykzneubl Ypegkpzy106-0841 /ul 04/14/2020 [facility] [address] [address]SBJWFNEI CBC W/ DIFF NBR69228Mrmxgzfd Rcxfpnbttg239-462 /ul 04/14/2020 [facility] [address] [address]OITNSMRF CBC W/ DIFF ABX36974Hgyvmpzv Attgtyyu206-987 /ul04/14/2020 [facility] [address] [address]YPXGZJHGB41301Fqilvgugo39761-95.3 mg/dL04/14/2020 [facility] [address] [address]UJQP RPVQ72977Iqni Vwhh2009-30.1 mg/dL10/18/2019 [facility] [address] [address]EDYZVTBZ CBC W/ DIFF DFU11053XIN0001-189.0 K/ul10/18/2019 [facility] [address] [address]KAUWGQKM CBC W/ DIFF BYS86696NSG486-27.41 M/uL10/18/2019 [facility] [address] [address]VHHDLOIZ CBC W/ DIFF MFC35008Lugwtvjsqf229-015.1 g/dL10/18/2019 [facility] [address] [address]ZXKHHZPG CBC W/ DIFF BEX89430Zjygtlsuym4134-567.6 %10/18/2019 [facility] [address] [address]PMQWTOXA CBC W/ DIFF ZPQ45927YQR559-765.1 fL10/18/2019 [facility] [address] [place], [place] [address]AHBMZRBR CBC W/ DIFF UPA51300MOV949-042.5 pg10/18/2019 [facility] [address], [place] [address]DLEVKSMC CBC W/ DIFF TAW34001HBOL830-070.1 g/dL10/18/2019 [facility] [address] [address]ZCZOXGBE CBC W/ DIFF YUH95530WAN772-987.6 %10/18/2019 [facility] [address] [address]JXMDSFBZ CBC W/ DIFF XHS78212Yhaskwmh Fkhpx602-4279 K/uL10/18/2019 [facility] [address] [place], [place] [address]VBWTIWJK CBC W/ DIFF MZJ19905AGG17255-46.8 fL10/18/2019 [facility] [address], [place] [address]CNGCVJWQ CBC W/ DIFF AJF49416Hddvbkhibuh %770-871.7 %10/18/2019 [facility] [address], [place] [address]TVGCDYQO CBC W/ DIFF YJA37197Vgipwfloaxd %736-922.0 %10/18/2019 [facility] [address], [place] [address]XTZCVYPI CBC W/ DIFF RSP73846Qizwjinbi %5905-54.9 %10/18/2019 [facility] [address], [place] [address]NTKTONEX CBC W/ DIFF HZP92418Waoutukmvjy %713-80.7 %10/18/2019 [facility] [address] [place], [place] [address]KMOWIUKA CBC W/ DIFF OCD32118Qznvghgct%706-20.7 %10/18/2019 [facility] [address] [place], [place] [address]EPLNMTWI CBC W/ DIFF OLQ75792Ckgziqbd Lwokmlyyqj098-26463 /ul 10/18/2019 [facility] [address], [place] [address]PYLAJURT CBC W/ DIFF AJW50131Dptgbxxv Afjmvoxkhv13638-66360 /ul 10/18/2019 [facility] [address] [place], [place] [address]HKAMBUBT CBC W/ DIFF IBT26707Abipbyyq Zfzydksc007-9240 /ul 10/18/2019 [facility] [address] [place], [place] [address]XUZBBAUE CBC W/ DIFF PDD35462Whzqcrss Ieuallnmjf149-654 /ul 10/18/2019 [facility] [address], [place] [address]TYEQISAO CBC W/ DIFF GGX36091Yzqtoueq Pxyhdnze694-836 /ul10/18/2019 [facility] [address] [place], [place] [address]A9G-RUBYZAWXDDWPGNQ8876-6Ozbqb HGB A1L07006-98.0 %10/18/2019 [facility] [address] [place], [place] [address]I0J-FOHNFKLLVQJHCTU0766-5sCX65715-0208 mg/dL10/18/2019 [facility] [address] [place], [place] [address]ITJE 14 (METABOLIC PANEL)76882Yucfaha5556-1080 mg/dL10/18/2019 [facility] [address] [place], [place] [address]BWVY 14 (METABOLIC PANEL)57894FVP8812-50 mg/dL10/18/2019 [facility] [address] [place], [place] [address]GKJJ 14 (METABOLIC PANEL)02795Xgwyhhkrzl3002-45.7 mg/dL10/18/2019 [facility] [address] [place], [place] [address]NABM 14 (METABOLIC PANEL)43541HRC/Creat Kmblh8733-663. [facility] [address] [place], [place] [address]KRYT 14 (METABOLIC PANEL)74857YIB Kvuvvljht70814-066 mL/min/1.73m2 10/18/2019 [facility] [address] [place], [place] [address]LGXG 14 (METABOLIC PANEL)97756SLJ Estimated for Americans [address] mL/min/1.79e05510/18/[address] [facility] [address] [place] [address] 449[address]XYII 14 (METABOLIC PANEL)08353Pegmrz0896-1693 mmol/L10/18/2019 [facility] [address] [place], [place] [address]JXOT 14 (METABOLIC PANEL)21505Pymhfvgrd0829-60.2 mmol/L10/18/2019 [facility] [address] [place], [place] [address]VUGD 14 (METABOLIC PANEL)03903Mbxciqbn2176-9550 mmol/L10/18/2019 [facility] [address] [place], [place] [address]QPQT 14 (METABOLIC PANEL)07319Exdwa HO04119-906 mmol/L10/18/2019 [facility] [address] [place], [place] [address]YEYW 14 (METABOLIC PANEL)27806Prgpvmpqae Serum Bffzhnhfvr57829-2105 mOsm/kg10/18/2019 [facility] [address] [place], [place] [address]LATY 14 (METABOLIC PANEL)44152Scfhc Wjb9956-69.2 mEq/L10/18/2019 [facility] [address] [place], [place] [address]AWQU 14 (METABOLIC PANEL)57513Twuzsuy58550-60.4 g/dL10/18/2019 [facility] [address] [place], [place] [address]ZZFE 14 (METABOLIC PANEL)01859Rkijr Fxnzjdt6482-50.0 g/dL10/18/2019 [facility] [address] [place], [place] [address]KPNA 14 (METABOLIC PANEL)66012Biulmbdo9847-87.6 g/dL10/18/2019 [facility] [address] [place], [place] [address]AMWY 14 (METABOLIC PANEL)89606Azfbhul/Globulin Modwu0884-00.9 10/18/2019 [facility] [address] [place], [place] [address]YGSK 14 (METABOLIC PANEL)89608UAB FMZF4876-318.00 U/L10/18/2019 [facility] [address] [place], [place] [address]ZIKJ 14 (METABOLIC PANEL)92924YFCZ/NOH1438-925 U/L10/18/[address] [facility] [address] [place] [address] 38771KETL 14 (METABOLIC PANEL)53409DLIK/UEL6589-807 U/L10/18/2019 [facility] [address] [place] [address] 76[address]NQAB 14 (METABOLIC PANEL)17997Vadnm Cotrifzes7136-48.6 mg/dL 10/18/2019 [facility] [address] [place] [address] 36228JNMD 14 (METABOLIC PANEL)13536Xhmxvwh43552-47.2 mg/dL10/18/2019 [facility] [address] [place], [place] [address]XBVG 14 (METABOLIC PANEL)06617Jagbzjoga Wrannbw76095-40.8 mg/dL 10/18/2019 [facility] [address] [place], [place] [address]LAN71901VQC82488-31.380 uIU/mL10/18/[address] [facility] [address] [place] [address]KHGCTETKAV45537Wdhsardrrj65952-832 mg/dL10/18/2019 [facility] [address] [place], [place] [address]WRSNAKIU CBC W/ DIFF IMG41564GQR6739-01.0 K/ul07/06/2019 [facility] [address] [place], [place] [address]JBALLVPB CBC W/ DIFF GNI98146CUO574-19.24 M/uL07/06/2019 [facility] [address] [address]WPOMSBID CBC W/ DIFF TFN47697Kzsxxwokpx403-578.8 g/dL07/06/2019 [facility] [address] [address]PVVCESOZ CBC W/ DIFF VIE69370Qfoupnjewt5412-213.8 %07/06/2019 [facility] [address] [address]AUXDQCZV CBC W/ DIFF WRB28595AAV609-201.4 fL07/06/2019 [facility] [address] [address]RGGGWLIG CBC W/ DIFF FTP73842BBA491-445.9 pg07/06/2019 [facility] [address] [address]ADMHAEDD CBC W/ DIFF JXA16362LNHQ409-336.0 g/dL07/06/2019 [facility] [address] [address]ZMSTLGUO CBC W/ DIFF YOA82465QDL156-855.5 %07/06/2019 [facility] [address] [address]NSWXFFAQ CBC W/ DIFF HEJ62333Ujiblnqy Zlaek983-3614 K/uL07/06/2019 [facility] [address] [address]PIHUXSBI CBC W/ DIFF NWI62487KQV16442-15.9 fL07/06/2019 [facility] [address] [address]WVXOGSXZ CBC W/ DIFF WNU63704Tatzifeocjn %770-862.5 %07/06/2019 [facility] [address] [address]FBHZVVMO CBC W/ DIFF TFT26257Pdxdxbdpdyv %736-931.4 %07/06/2019 [facility] [address] [address]HLZCCWVR CBC W/ DIFF LJC28565Inhzovrzk %5905-55.1 %07/06/2019 [facility] [address] [address]EOZQXHQA CBC W/ DIFF XTD96625Dekywodjjtm %713-80.5 %07/06/2019 [facility] [address] [place], [place] [address]OEDLXHMO CBC W/ DIFF DJR59137Lzbbuhgap%706-20.5 %07/06/2019 [facility] [address] [place] [address]ENCWXTAI CBC W/ DIFF SXW81281Rubgxiyd Wdgwwdkicv811-00393 /ul 07/06/2019 [facility] [address] [place], [place] [address]JNITHJOR CBC W/ DIFF FHN53634Eqoigpzs Vaqocvmqxy33976-65798 /ul 07/06/2019 [facility] [address] [place] [address]LKBFKTMH CBC W/ DIFF IGT89685Kzdvpxzz Jpmyykxn226-5335 /ul 07/06/2019 [facility] [address] [place] [address]EPEWEYDF CBC W/ DIFF DGM76938Kxotczra Gflsaqidbj719-413 /ul 07/06/2019 [facility] [address] [place] [address]TJCIEXUR CBC W/ DIFF EJD33977Wjbcspsb Zjekzceg543-786 /ul07/06/2019 [facility] [address] [facility] [place] [address]UAKBMKYQV58530Fxirzyypq37910-69.3 mg/dL07/05/2019 [facility] [address] [facility] [place] [address]WCTU XVOL97025Ulcj Iupo2290-20.0 mg/dL07/05/2019 [facility] [address] [place] [address]LLY41260XGA4002-776.9 pg/mL07/05/2019 [facility] [address], [place] [address]LAPW 14 (METABOLIC PANEL)34489Ptxebbf6170-081 mg/dL07/05/2019 [facility] [address] [place] [address]TKLJ 14 (METABOLIC PANEL)15141AXC4216-442 mg/dL07/05/2019 [facility] [address] [place] [address]BNRI 14 (METABOLIC PANEL)51652Izluwpixlj6657-42.7 mg/dL07/05/2019 [facility] [address] [place] [address]SRTO 14 (METABOLIC PANEL)93606YAU/Creat Xbtrx2633-167. [facility] [address] [facility] [place], [place] [address]DUGY 14 (METABOLIC PANEL)06790ALB Nuixmjkrb93664-579 mL/min/1.73m2 07/05/2019 [facility] [address] [place], [place] [address]KOSR 14 (METABOLIC PANEL)24150OFC Estimated for Americans [address] mL/min/1.63a92807/05/2019 [facility] [address] [place], [place] [address]ANJN 14 (METABOLIC PANEL)11099Ufqozx1685-9316 mmol/L1 [facility] [address] [place], [place] [address]YWSJ 14 (METABOLIC PANEL)84233Dvbjkwuav8820-34.8 mmol/L1 [facility] [address] [place], [place] [address]UAVW 14 (METABOLIC PANEL)75230Hykbdfen2779-2966 mmol/L1 [facility] [address] [place], [place] [address]BZKS 14 (METABOLIC PANEL)37303Dxmib ME18321-664 mmol/L1 [facility] [address] [place] [address] 48[address]WIQX 14 (METABOLIC PANEL)02714Krfje Xhv3254-062.8 mEq/L1 [facility] [address] [place] [address]MSFA 14 (METABOLIC PANEL)60551Wjhccinfgd Serum Didhrlpwbh43369-4471 mOsm/kg07/05/2019 [facility] [address] [place] [address]JCEN 14 (METABOLIC PANEL)62064Fqchtbj70206-32.0 g/dL07/05/2019 [facility] [address] [place] [address] 45[address]BTEE 14 (METABOLIC PANEL)09680Yyroz Hgqzxkw9323-50.5 g/dL07/05/2019 [facility] [address] [place] [address]JEYQ 14 (METABOLIC PANEL)59005Vdethggq6923-67.5 g/dL07/05/[address] [facility] [address] [place] [address]CQWT 14 (METABOLIC PANEL)70981Bmvgmvl/Globulin Uikze5700-92.1 07/05/2019 [facility] [address] [place] [address]ATSB 14 (METABOLIC PANEL)29113ECY HLBB0270-542.00 U/L1 [facility] [address] [place] [address] 99[address]MSUI 14 (METABOLIC PANEL)09731VFSB/TLJ0311-938 U/L1 [facility] [address] [address]MFVV 14 (METABOLIC PANEL)80799HHQX/ROB8368-857 U/L1 [facility] [address] [address]JLKX 14 (METABOLIC PANEL)32704Wkngr Ptezyjbys9409-44.3 mg/dL 07/05/2019 [facility] [address] [address]MKOF 14 (METABOLIC PANEL)11360Lgbpluh58814-64.5 mg/dL07/05/2019 [facility] [address] [address]YDGH 14 (METABOLIC PANEL)26553Rydoszdff Hubtwod39948-12.7 mg/dL 07/05/2019 [facility] [address] 238[address]ZLVEWTFULH63804Qzzbszgkny0634-55.5 mg/dL07/05/2019 [facility] [address] [address]S1D-FINCXETBCCJGCYD8830-6Ljols HGB W7B89740-32.6 %07/05/2019 [facility] [address] 285[address]A9M-LEXOBRPBAKDSUPS9517-9hWL03407-9706 mg/dL07/05/2019 [facility] [address] [address]SACK X-973858WC03376-05.82 pg/mL07/05/2019 [facility] [address] [address]JVVB D-828480QC77757-13.17 ng/dL07/05/2019 [facility] [address] 86[address]CPNXUMXYHJEPL53878Samzxxfwckizs7758-0448 mg/dL06/22/2019 [facility] [address] [address]USPOGZBCJHTRX93069QZML05218-032 mg/dL06/22/2019 [facility] [address] 174[address]ZSH - OKHJ52069SFR4652-432 mg/dL06/22/2019 [facility] [address] [address]MWG - TXHW25357RPK77995-805 %06/22/2019 [facility] [address] [address]Llrsrwzrbzwf53127Qfzqxnnbhkjm40314-96.42 umol/L06/22/2019 [facility] [address] [place], [place] [address]WCR43949GKA92937-42.210 uIU/mL06/22/2019 [facility] [address] [place] [address]HSPKUKQJYFR84310Fteaeycctvb2270-8113 mg/dL06/22/2019 [facility] [address] [place], [place] [address]JQNXZYBOTHSP (URINE)47209Akneghfvvasl93162-88.5 mg/dL06/22/2019 [facility] [address] [place], [place] [address]IADJMYVCCVEV (URINE)38905Ujuqjbbomdob/Creatinine Ugzin28950-64 MCG/HIRIUTT6406/22/2019 [facility] [address] [place], [place] [address]DVPBMZHGTVDD (URINE)24143Vgrbt Stlejetqsl5851-350.30 mg/dL 06/22/2019 [facility] [address] [place], [place] [address]KUVLNCL B-0172938Sthdzat A179869-4586 pg/mL06/22/2019 [facility] [address] [place] [address]Rpjcnx VYI00226NUE-Vinxyh56103-2890 mg/dL06/22/2019 [facility] [address] [place], [place] [address]Iqfdqd Molecular UTI TestRMUTIMolecular UTI TestCRITERIA NOT MET FOR MOLECULAR UTI ZLIVXXT8106/22/2019 [facility] [address] [place] [address] 580[address]Pdcbrh UA to Molecular UTI Ojtd22076MKbrvthe2831-8Ablqjlgy mg/dL 06/22/2019 [facility] [address] [place] [address] 00977Okjsth UA to Molecular UTI Urej11126XJhhiuqtQanfkail mg/dL 06/22/2019 [facility] [address] [place], [place] [address]Cpxosi UA to Molecular UTI Khos22800PQumiqszebBbrglvbs mg/dL 06/22/2019 [facility] [address] [place], [place] [address]Pvzwyp UA to Molecular UTI Mrly13689EXyaiglqhdcufHsbnoxya mg/dL 06/22/2019 [facility] [address] [place], [place] [address]Zkeids UA to Molecular UTI Kkpa34382WGn9.00006/22/2019 [facility] [address] [place] [address]28[address]Irtdcl UA to Molecular UTI Vdls83559YNftbsNpltgcdd mg/dL06/22/2019 [facility] [address] [place] [address]Jchath UA to Molecular UTI Dsoa94322MQbsntcoRtangdgg mg/dL 06/22/2019 [facility] [address] [place] [address]Fwfyuh UA to Molecular UTI Dxmg56439TKqrpiwsBcnnuymr73/20/2019 [facility] [address] [place] [address]Wsagrn UA to Molecular UTI Upwt92932WPuzwuumtlk165 WBCs/uL +++ WBCs/uL06/22/2019 [facility] [address] [place] [address]Hswmdl UA to Molecular UTI Hnui57744AVbvenjoIshyikda-Pdvihd 06/22/2019 [facility] [address] [place] [address]Yeoavu UA to Molecular UTI Frgj19134ZAtrjmpun Gravity1.013 06/22/2019 [facility] [address] [place] [address]Njyokv UA to Molecular UTI Cqqa39298PWsgfnOoewiz73/20/2019 [facility] [address] [place] [address]Zykojv UA to Molecular UTI Yjit15246VAanavbec AcidNegative mg/dL 06/22/2019 [facility] [address] [place] [address]Dyddco UA to Molecular UTI Dxoa99076QDnc Blood Cell1 /HPF #/HPF 06/22/2019 [facility] [address] [place] [address]Icbpcs UA to Molecular UTI Vumx96356XQuexf Blood Cell4 /HPF #/HPF 06/22/2019 [facility] [address] [place] [address]Zznzvq UA to Molecular UTI Mysh82306CGROIYDJT EPITHELIAL1 /HPF #/HPF06/22/2019 [facility] [address] [place] [address]Jxmhxa UA to Molecular UTI Jsqd99080CVujjvmffUmuaj graded/HPF 06/22/2019 [facility] [address] [place] [address]Qpdmaz UA to Molecular UTI Vznn17415DPzosphPRXV grades/LPF 06/22/2019 [facility] [address] [place] [address]OSDRNUJDSJ04261Xhajinabpu20087-373 mg/dL04/30/2019 [facility] [address] [place] [address]WU VOQZTV14900UD-diuKCS41901-3720.0 pg/mL04/30/2019 [facility] [address] [place], [place] [address]BNJW 14 (METABOLIC PANEL)61761Zrxqncd2245-271 mg/dL12/29/2018 [facility] [address] [place], [place] [address]WGGR 14 (METABOLIC PANEL)69242QHW0124-496 mg/dL12/29/2018 [facility] [address] [place], [place] [address]GOIA 14 (METABOLIC PANEL)01052Jjcudsillu1140-52.8 mg/dL12/29/2018 [facility] [address] [place], [place] [address]YKIV 14 (METABOLIC PANEL)17063FJZ/Creat Vkcee7614-921.6012/29/2018 [facility] [address] [place], [place] [address]CKJD 14 (METABOLIC PANEL)04815WVV Urfbzxntj25580-496 mL/min/1.73m2 12/29/2018 [facility] [address] [place] [address]IVYI 14 (METABOLIC PANEL)42233Ujepvt2396-7734 mmol/L12/29/2018 [facility] [address] [place] [address]KGQM 14 (METABOLIC PANEL)96212VCF Estimated for Americans [address] mL/min/1.92p57012/29/2018 [facility] [address] [place] [address]PJIY 14 (METABOLIC PANEL)97444Rkbpkygxl9937-90.9 mmol/L12/29/2018 [facility] [address] [place] [address]KGGO 14 (METABOLIC PANEL)01431Pxyotzqi2241-2455 mmol/L12/29/2018 [facility] [address] [place], [place] [address]BPZX 14 (METABOLIC PANEL)146[address]Tbfdc OS64486-372 mmol/L12/29/2018 [facility] [address] [place] [address]RKZF 14 (METABOLIC PANEL)97194Krhqx Axj6914-560.9 mEq/L12/29/2018 [facility] [address] [place], [place] [address]TJED 14 (METABOLIC PANEL)32459Abzaapkldf Serum Pgcokfrjfb66599-9044 mOsm/kg12/29/2018 [facility] [address] [place], [place] [address]LIHD 14 (METABOLIC PANEL)07943Cvfwowa77388-53.6 g/dL12/29/2018 [facility] [address] [place] [address]KDSA 14 (METABOLIC PANEL)45[address]Tjpzf Byhrrin1560-69.1 g/dL12/29/2018 [facility] [address] [place] [address]TZOT 14 (METABOLIC PANEL)73572Cndkxfpk6375-18.5 g/dL12/29/2018 [facility] [address] [place] [address]LWVA 14 (METABOLIC PANEL)27603Bggwsgw/Globulin Ijlby4631-14.0 12/29/2018 [facility] [address], [place] [address]XQQX 14 (METABOLIC PANEL)73081ZJS SHXL6647-577.00 U/L12/29/2018 [facility] [address] [facility] [place], [place] [address]XVUW 14 (METABOLIC PANEL)50982LTCS/WNK0499-708 U/L12/29/2018 [facility] [address], [place] [address]HRLL 14 (METABOLIC PANEL)17339SZUK/VCQ2374-529 U/L12/29/2018 [facility] [address] [address]EYTD 14 (METABOLIC PANEL)12876Ujpvu Pkevycuea8563-36.4 mg/dL 12/29/2018 [facility] [address] [facility] [place] [address]IGCW 14 (METABOLIC PANEL)36161Drvwgoa97660-07.9 mg/dL12/29/2018 [facility] [address], [place] [address]QIOZ 14 (METABOLIC PANEL)39447Fdqbmqqpr Bhtqkst92709-49.4 mg/dL 12/29/2018 [facility] [address] [address]SPUW R-845391ZZ98165-57.19 ng/dL12/29/2018 [facility] [address] [facility] [place] [address]QHHN OKHC39231Vqum Ixty3742-55.4 mg/dL12/29/2018 [facility] [address] [facility] [place] [address]F4W-XQGLFWKHWZZBQQU2425-9Gkkio HGB Z0Z76062-79.8 %12/29/2018 [facility] [address] [place], [place] [address]U9G-DNPCGUJCFIQOKDL7607-9fGQ68836-5897 mg/dL12/29/2018 [facility] [address] [place], [place] [address]MFXXFMLBHS57677Ntdmppyocl2343-81.3 mg/dL09/08/2018 [facility] [address] [facility] [place] [address]GAMMUDTNB35807Tknmempkx42674-24.2 mg/dL09/08/2018 [facility] [address], [place] [address]IILB 14 (METABOLIC PANEL)34486Vuyuqmk9179-480 mg/dL09/08/2018 [facility] [address] [place], [place] [address]VGKT 14 (METABOLIC PANEL)47828KBI0300-39 mg/dL09/08/2018 [facility] [address] [place], [place] [address]UPMK 14 (METABOLIC PANEL)63832Apeqqtiwnn5047-29.7 mg/dL09/08/2018 [facility] [address] [facility] [place] [address]KYAP 14 (METABOLIC PANEL)99243KJH/Creat Azhhf6007-070. [facility] [address] [place], [place] [address]TUEP 14 (METABOLIC PANEL)20328BHK Aadqxwojw29184-6999 mL/min/1.73m2 09/08/2018 [facility] [address] [place], [place] [address]AXVB 14 (METABOLIC PANEL)29361BIM Estimated for Americans [address] mL/min/1.74t42709/08/2018 [facility] [address] [facility] [place], [place] [address]GZVC 14 (METABOLIC PANEL)15022Kypoyg9523-5131 mmol/L111/09/2017 [facility] [address] [place], [place] [address]QZFM 14 (METABOLIC PANEL)40476Uxfabvkas3691-77.0 mmol/L111/09/2017 [facility] [address] [facility] [place], [place] [address]NDAW 14 (METABOLIC PANEL)69141Ieduweig3378-3430 mmol/L111/09/2017 [facility] [address] [place], [place] [address]RECT 14 (METABOLIC PANEL)417[address]Hvyyl XF81832-969 mmol/L111/09/2017 [facility] [address] [place], [place] [address]FJGF 14 (METABOLIC PANEL)41613Tupcxudnto Serum Rwozvooviq01679-0951 mOsm/kg09/08/2018 [facility] [address] [place], [place] [address]HXAC 14 (METABOLIC PANEL)49290Oytbp Odo8240-382.0 mEq/L12/04/2018 [facility] [address] [place], [place] [address]UFPN 14 (METABOLIC PANEL)22027Lxroixt41455-01.7 g/dL09/08/2018 [facility] [address] [place] [address]VNYJ 14 (METABOLIC PANEL)27387Dglvo Lvxezxl9126-33.0 g/dL09/08/2018 [facility] [address] [facility] [place] [address]UCQD 14 (METABOLIC PANEL)17814Tawifznq9194-31.3 g/dL09/08/2018 [facility] [address] [facility] [place] [address]IXZF 14 (METABOLIC PANEL)82336Fpjktos/Globulin Kzmck1977-02.1 09/08/2018 [facility] [address] [facility] [place] [address]KPHI 14 (METABOLIC PANEL)31413VSQ YXSN6220-822.00 U/L111/09/2017 [facility] [address] [place], [place] [address]JBSO 14 (METABOLIC PANEL)60591SWRA/ATS6677-890 U/L111/09/2017 [facility] [address] [facility] [place] [address]OVPA 14 (METABOLIC PANEL)02901BRCW/AOV1364-122 U/L111/09/2017 [facility] [address] [facility] [place] [address]YDBU 14 (METABOLIC PANEL)03903Ngrcg Lyecgxqkx9188-19.5 mg/dL 09/08/2018 [facility] [address] [facility] [place] [address]RDLO 14 (METABOLIC PANEL)11119Rdrcome36319-47.3 mg/dL09/08/2018 [facility] [address] [facility] [place] [address]AJKM 14 (METABOLIC PANEL)54625Xmgegtahf Lcnqxxm17298-47.7 mg/dL 09/08/2018 [facility] [address] [place], [place] [address]N8I-JFWGGERGVVADCPQ7442-4Wmxfp HGB G5Y48568-96.7 %09/08/2018 [facility] [address] [facility] [facility] [address]W8O-VEXFNAWIUQVZGVD1767-8iUA47618-2044 mg/dL09/08/2018 [facility] [address] [place], [place] [address]YMTEPUQ L19221Yjhlicr Z35617-256.8 ng/mL09/08/2018 [facility] [address] [address]ZVAGVUZC CBC W/ DIFF KFV70287UGY6785-61.0 K/ul09/08/2018 [facility] [address] [address]WEUMIYBJ CBC W/ DIFF TGN46722TQT974-61.31 M/uL09/08/2018 [facility] [address] [address]IYWKXBQF CBC W/ DIFF YPL54096Gefkbmvlul591-008.0 g/dL09/08/2018 [facility] [address] [address]XENZTSPC CBC W/ DIFF XIH93515Hqhxdhzmfl8875-079.8 %09/08/2018 [facility] [address] [address]LEQHWHKF CBC W/ DIFF CBY56488AXW097-905.7 fL09/08/2018 [facility] [address] [address]XQUCXTWC CBC W/ DIFF JUS22967KVQ129-692.9 pg09/08/2018 [facility] [address] [address]WEVNDFWM CBC W/ DIFF KZP19979ZZQS584-062.8 g/dL09/08/2018 [facility] [address] [address]OLULFFTL CBC W/ DIFF WTU18224YRC152-323.6 %09/08/2018 [facility] [address] [address]PDMOSHLS CBC W/ DIFF QKG87660Xqviprao Oacop273-1021 K/uL09/08/2018 [facility] [address] [address]MKHUCRVP CBC W/ DIFF UAU33428MSQ55612-54.2 fL09/08/2018 [facility] [address] [address]KEOTQLSX CBC W/ DIFF DUL23878Yfldsszplcc %770-871.7 %09/08/2018 [facility] [address] [address]WCUCOFDT CBC W/ DIFF ZLL40311Fztbgzqjrfc %736-923.0 %09/08/2018 [facility] [address] [address]FQBECHDD CBC W/ DIFF PLG25427Lwqyxwtnm %5905-54.0 %09/08/2018 [facility] [address] [address]HLNNCPJA CBC W/ DIFF SFX84835Xssrmppvlzu %713-81.2 %09/08/2018 [facility] [address] [address]EVUKAGNT CBC W/ DIFF AQG82018Ldbsrauzy%706-20.1 %09/08/2018 [facility] [address] [address]EPKOVRKI CBC W/ DIFF ZTX05671Qhhszmvz Jsewevzaoi080-74404 /ul 09/08/2018 [facility] [address] [address]SPGOUKXQ CBC W/ DIFF TDN56148Xmxdbflu Gcoofzsxyk06939-28953 /ul 09/08/2018 [facility] [address] [address]UJLHOPIK CBC W/ DIFF HIZ97236Ocajimhk Arwejwku580-8979 /ul 09/08/2018 [facility] [address] [address]MFEIDCSQ CBC W/ DIFF JCT77572Zhsaodhg Vjaljkalkl374-431 /ul 09/08/2018 [facility] [address] [address]AZDMOZDK CBC W/ DIFF HRW96898Snxmwwfm Vnrnkiih220-04 /ul09/08/2018 [facility] [address] [address]YWVSZHGGWN72835Hkbboyrxyi46206-582 mg/dL06/02/2018 [facility] [address] [address]ZB MLFCVI80411GI-aweFWL11251-5<50 pg/mL06/02/2018 [facility] [address] [address]HBDPRMVSZHPW (URINE)82873Xdlylnnefdyj56779-08.2 mg/dL06/02/2018 [facility] [address] [address]CVOADRGWYRJX (URINE)56633Ifjhivuwwjzj/Creatinine Nwzzf13619-66 MCG/GDCQWTZ4106/02/2018 [facility] [address] [address]ACFZKARNIZPY (URINE)85791Ocavh Ezhwxozxdd0276-9234.00 mg/dL 06/02/2018 [facility] [address] [address]Zzvpok BjcbFJXVLLwjdozhxvxk53914-780.0 %06/02/2018 [facility] [address] [address]Gptyfb OnviUHYSYFxwiracpyig83533-944.0 %06/02/2018 [facility] [address] [address]Rctqxw EvpnFRXQAAtvkjbcqr36522-33.0 %06/02/2018 [facility] [address] [address]Ubdqsm WwveALXDSIemglxurhdy39717-75.0 %06/02/2018 [facility] [address],[place] [address]Ocrsgi HslrPCZEVDozesisff41111-53.0 %06/02/2018 [facility] [address] [address]Jggykd DiffMDIFFAbsolute Kucz28564-88423 /ul06/02/2018 [facility] [address] [address]Vkqkze DiffMDIFFAbsolute Edydc29360-43674 /ul06/02/2018 [facility] [address] [address]Sxqnql DiffMDIFFAbsolute Emkz94660-2384 /ul06/02/2018 [facility] [address] [address]Gnblvc DiffMDIFFPlatelet Dxgezrtj0588-9Ygngkk33/31/2018 [facility] [address] [address]Udlmnj DiffMDIFFAbsolute San96081-5142 /ul06/02/2018 [facility] [address] [address]Mfujht EkrlONWKYWdbrtbrzpxm1422-25+06/02/2018 [facility] [address] [address]Javmeu UjwbDFVXMQrbpowfabowzxn104-31+06/02/2018 [facility] [address] [address]Seavku DiffMDIFFAbsolute Yuxn45783-0368 /ul06/02/2018 [facility] [address] [address]XIIZ 14 (METABOLIC PANEL)42395Jvhjiam0597-130 mg/dL06/02/2018 [facility] [address] [address]NEXO 14 (METABOLIC PANEL)18376SXI5744-151 mg/dL06/02/2018 [facility] [address] [address]DMET 14 (METABOLIC PANEL)59070Fmljgdiluf6415-89.7 mg/dL06/02/2018 [facility] [address] [place], [place] [address]OKFY 14 (METABOLIC PANEL)27184HMB/Creat Wgpnh0713-698.6006/02/2018 [facility] [address] [place], [place] [address]RQHY 14 (METABOLIC PANEL)42976DNT Zkmkpfiqe29301-457 ML/MIN 06/02/2018 [facility] [address] [place], [place] [address]HIWR 14 (METABOLIC PANEL)97538UBV Estimated for Americans [address] ML/MIN06/02/2018 [facility] [address] [place], [place] [address]PRSY 14 (METABOLIC PANEL)11181Gmnyhm6393-4241 mmol/L06/02/2018 [facility] [address] [place], [place] [address]NCJV 14 (METABOLIC PANEL)20180Fucmwcjnn8052-28.0 mmol/L06/02/2018 [facility] [address] [place] [address]QIZW 14 (METABOLIC PANEL)68979Viqghjup5692-2072 mmol/L06/02/2018 [facility] [address] [place], [place] [address]HAHV 14 (METABOLIC PANEL)93265Neimm ZZ06707-420 mmol/L06/02/2018 [facility] [address] [place], [place] [address]XCOW 14 (METABOLIC PANEL)35100Ilurb Gwd1952-349.0 mEq/L06/02/2018 [facility] [address] [place], [place] [address]GZFB 14 (METABOLIC PANEL)90892Gsjsxsdkki Serum Tqnovzotus36645-9489 mOsm/kg06/02/2018 [facility] [address] [place], [place] [address]PIZT 14 (METABOLIC PANEL)05456Grxgllk95901-70.2 g/dL06/02/2018 [facility] [address] [place], [place] [address]ZSWD 14 (METABOLIC PANEL)50365Zmysa Gwzqlam2101-72.6 g/dL06/02/2018 [facility] [address] [place], [place] [address]BAAE 14 (METABOLIC PANEL)13696Rykvyryy2878-75.4 g/dL06/02/2018 [facility] [address] [place], [place] [address]WZOI 14 (METABOLIC PANEL)84106Bhknfwm/Globulin Uvscl8568-97.2 06/02/2018 [facility] [address] [address]KKRA 14 (METABOLIC PANEL)40438ZVR IHTE5964-0460.00 U/L06/02/2018 [facility] [address] [place] [address]WGAX 14 (METABOLIC PANEL)91709LJHR/HXI2660-714 U/L06/02/2018 [facility] [address] [place], [place] [address]RYDK 14 (METABOLIC PANEL)51717HABV/FIW4445-098 U/L06/02/2018 [facility] [address] [place], [place] [address]WYUR 14 (METABOLIC PANEL)70529Mldnc Yqxcuomce6934-74.7 mg/dL 06/02/2018 [facility] [address] [place] [address]ZMUS 14 (METABOLIC PANEL)68396Jffcbdd44160-30.5 mg/dL06/02/2018 [facility] [address] [place] [address]ULTX 14 (METABOLIC PANEL)14892Fdphooddb Gipgjcp79516-28.5 mg/dL 06/02/2018 [facility] [address] [place] [address]EXLTURM B-1039842Qlgneiz Q623590-72626 pg/mL06/02/2018 [facility] [address] [place], [place] [address]ITUNYUQDMF90930Ezambuadgf2982-69.4 mg/dL06/02/2018 [facility] [address] [facility] [address]DYY79056PHA89256-20.150 uIU/mL06/02/2018 [facility] [address] [place] [address]HPSJYAWES87968Vurywtljk57027-69.0 mg/dL06/02/2018 [facility] [address] [place], [place] [address]K4L-ADGLVTPILMOAQZP3711-0Vypzz HGB X2R83717-15.0 %06/02/2018 [facility] [address], [place] [address]L0Q-RVCOXECNSBFKLJM3901-8xAZ13895-5558 mg/dL06/02/2018 [facility] [address] [facility] [place] [address]CYM - SCQI78992PMS0562-380 mg/dL06/02/2018 [facility] [address] [address]QPI - DWAJ65448FZE05860-259 %06/02/2018 [facility] [address] [address]WMCIZETY CBC W/ DIFF PFR96294KWZ6911-044.8 K/ul06/02/2018 [facility] [address] [address]SZJQFSYI CBC W/ DIFF AYF01927OYP611-62.24 M/uL06/02/2018 [facility] [address] 265[address]DFBIAVGE CBC W/ DIFF QKY42445Razswmhuzr847-870.8 g/dL06/02/2018 [facility] [address] [address]RSPSTIIJ CBC W/ DIFF ZZS73217Krmkdlusfk6449-087.2 %06/02/2018 [facility] [address] [address]BZFPAYVN CBC W/ DIFF VRD72456RQC657-017.8 fL06/02/2018 [facility] [address] [address]RUJVVGYO CBC W/ DIFF PFC04144DKH952-423.9 pg06/02/2018 [facility] [address] [address]CPPSCBUD CBC W/ DIFF XDD55282XDBG098-566.8 g/dL06/02/2018 [facility] [address] [address]YHRMZPWU CBC W/ DIFF LHV78133KTE774-035.1 %06/02/2018 [facility] [address] [address]FVYTIHIX CBC W/ DIFF QRT53937Adzcoemp Rkqxv844-4148 K/uL06/02/2018 [facility] [address] [address]OUHTOSOD CBC W/ DIFF BEV99919SCO04780-64.6 fL06/02/2018 [facility] [address] [address]AGVVDDNRIGQYT02054Aoenvfsugzyan4206-4787 mg/dL06/02/2018 [facility] [address] [address]CCVDFTEULGIXY85654GKML67185-806 mg/dL06/02/2018 [facility] [address] [address]Cpbqkr EQV88825GLA-Aevtyp44903-9123 mg/dL06/02/2018 [facility] [address] [address]ELSSOZLBWKK14963Qjdrrlgchgb1711-7086 mg/dL06/02/2018 [facility] [address] [address]QDTLIG80072Waohvk9621-0>20 ng/mL06/02/2018 [facility] [address] [address] Procedures Procedure Codes Date Patient Health Questionnaire [...] = Negative for depression- NO PLAN NEEDEDCPT-4: HARRYzzpbaq79/07/2024 FLUCELVAX PFS VAC NO PRSV 0.5 ML IMCPT-4: 1569070dmin flu virus vaccine CPT-4: V157189atient Health QuestionnaireCPT-4: DPHQ06/24/2023 ElectrocardiogramCPT-4: 7555025Electrocardiogram Finding/Abnormal: _Sinus Rhythm Low voltage in precordial leads. - Nonspecific T-abnormality.CPT-4: 75195Odsftbz45/22/2023atient Health Questionnaire Little interest or pleasure in [...] Score:/0-4 =Negative for depression- NO PLAN NEEDEDCPT-4: KELLXgtrxfj76/22/2023 Functional Assessment ADLs - Patient needs direct assistance, cuing, or supervision, to perform the following safely:/*Noassistance, cuing, or supervision needed, IADLs - Patient needs direct assistance, cuing, or supervision, to perform the following safely:/taking medications, IADLs - Patient needs direct assistance,cuing, or supervision, to perform the following safely:/transportationCPT-4: DFAUnknown 06/24/2023Urinalysis, dip stickCPT-4: 5262286lucose Blood TestCPT-4: 7124874Urinalysis, dip stick Leukocytes:/Moderate, Nitrite:/Negative, Urobilinogen:/0.2, Protein:/Negative, Ph:/5.0, Blood:/Negative, Specific Bigler:/1.005, Ketone:/Negative, Bilirubin:/Negative, Glucose:/NegativeCPT-4: 54973Rvgggyj28/02/2023Semmes Fany AssessmentCPT-4: DSWA01/27/2023Fall Risk AssessmentCPT-4: DFRA 01/27/2023HypertensionCPT-4: HTN01/27/2023Semmes Fany Assessment Sensation/07/12CPT-4: UAYHLzxrkag51/27/2023Fall Risk Assessment Any problems with balance or walking?/No, Has there been a fall with injury in the last year?/No, Two or more falls in the past year?/No, Plan:/Monitor gait and balance PRN, no current action neededCPT-4: NCABQmxqswq59/27/2023 Hypertension Hypertension Follow Up Plan/Lifestyle modification weight reduction, Hypertension Follow Up Plan/Lifestyle modification including reduce salt intake CPT-4: YFPNuspbco07/27/2023atient General Health Assessemnt Compared to one year ago, how would you rate your health in general?/the same CPT-4: GYSGTjbbisg43/24/2023atient Health QuestionnaireCPT-4: DPHQ11/23/2022 Patient Health Questionnaire Little [...] Score:/0-4 =Negative for depression- NO PLAN NEEDEDCPT-4: NHOJEnibdvz81/21/2023 Pain ScreeningCPT-4: PAS2022Tobacco Assessment/ScreeningCPT-4: TCA 2022Tobacco Assessment/Screening Tobacco Use/Never used tobaccoCPT-4: IYUAlyyqmr93/18/2023ain Screening Do you suffer from any painful conditions?/Yes (plan required)/Pain currently adequately controlledCPT-4: NMUDybwjav22/18/2023lucose Blood TestCPT-4: 88609 2022HypertensionCPT-4: HTN08/17/2022dmin pneumococ vacCPT-4: G0009 08/17/2022NEUMOCOCCAL VACC 23 JUNO IMCPT-4: 664346910/17/2021Hypertension Hypertension Follow Up Plan/Lifestyle modification weight reduction, Hypertension Follow Up Plan/Lifestyle modification including reduce salt intake CPT-4: YTDGfjkrfu25/15/2022atient General Health Assessemnt Compared to one year ago, how would you rate your health in general?/the same CPT-4: BPFIUctawac04/09/2022Glucose Blood TestCPT-4: 4879610emmes Fany AssessmentCPT-4: DSWA04/19/2022atient Health QuestionnaireCPT-4: DPHQ 04/19/2022atient [...] = Negative for depression- NO PLAN NEEDEDCPT-4: ASTYPdwufuz15/18/2022 [place] Fany Assessment Sensation/06/12CPT-4: IWGQBaqjkbl43/18/2022nnual Wellness Visit (Subsequent Visit)CPT-4: E709339/nnual Wellness Visit (Subsequent Visit) Tobacco Assessment/Never used [...] confirmed with pt and/or caregiver. Copy given.CPT-4: G5728Jqezbvw64/12/2022 Patient General Health Assessemnt Compared to one year ago, how would you rate your health in general?/the same CPT-4: GGDRGrqsdia80/07/2022atient Health QuestionnaireCPT-4: DPHQ01 Patient Health Questionnaire Little [...] = Negative for depression- NO PLAN NEEDEDCPT-4: VXVAIfbtjsq91/05/2022 Maltreatment Assessment 1. Have you relied on [...] No plan required, re-evaluate annually or prnCPT-4: URMMplmvki49/05/2022Functional Assessment ADLs - Patient needs direct assistance, cuing, or supervision, to perform the following safely:/*Noassistance, cuing, or supervision needed, IADLs - Patient needs direct assistance, cuing, or supervision, to perform the following safely:/*No assistance, cuing, or supervision neededCPT-4: OPOCuewmox50/05/2022 Frailty ScreeningCPT-4: D05/20/2021Frailty Screening Are you fatigued?/No (0), Can you walk one block?/Yes (0), Can you walk up one flight of stairs?/Yes (0), Do you have more than 5 chronic illnesses?/Yes (1), Have you lost more than 5% body weight in6 months?/No (0), Frailty Point Total:/Score 1=pre frailCPT-4: DTJJzpgvro86/18/2021HypertensionCPT-4: HTN 04/01/2021Functional Assessment ADLs - Patient needs [...] Up Plan/Lifestyle modification including reduce salt intakeCPT-4: GETMsokblm77/30/2021Tobacco Assessment/ScreeningCPT-4: TCA03/13/2021atient Health QuestionnaireCPT-4: DPHQ03/13/2021atient Health Questionnaire [...] DPHQUnknown 03/13/2021Tobacco Assessment/Screening Tobacco Use/Never used tobaccoCPT-4: DDAEpslmgq92/11/2021Mini Mental State Exam CPT-4: DMMA01/29/2021Mini Mental Status [...] sided figure design/1 point, Total Points Accrued:CPT-4: HWLUEjtoytp40/29/2021 Annual Wellness Visit (Subsequent Visit)CPT-4: G686617dvanced Care PlanningCPT-4: VACP01/13/2021[facility] [id number] CPT-4: DFRA01/13/2021nnual Wellness Visit (Subsequent Visit) Tobacco [...] Assessment/Fall with injury in the past year?/NoCPT-4: S0296Edujnia 01/13/2021dvance Care Planning Time spent discussing advance directives and/or completing forms with the patient or caregiver:/16 minutes (minimum) - 30 minutes, Advance Directive Status:/Reviewed and updated as pertinent, see Hx tabCPT-4: VACPUnknown 01/13/2021Fall Risk Assessment Two or more falls in the past year?/No, Has there been a fall with injury in the last year?/No, Plan:/Monitor gait and balance PRN, no current action needed SN[facility] CT: 125727705 CPT-4: DWNOOlfltar15/13/2021Functional Assessment ADLs - Patient needs direct assistance, cuing, or supervision, to perform the following safely:/*Noassistance, cuing, or supervision needed, IADLs - Patient needs direct assistance, cuing, or supervision, to perform the following safely:/shopping, IADLs - Patient needs direct assistance, cuing, orsupervision, to perform the following safely:/transportationCPT-4: JHIPnarrdk49/13/2021 Patient health Questionnaire-2 Over the past two weeks, have you felt little interest or pleasure in doing things?/(0) Not at all,Over the past two weeks, have you felt down, depressed, or hopeless?/(0) Not at all, Score:/0-2= Negative for depression (Plan NOT REQUIRED)CPT-4: YIHW4Osnyxhm38/13/2021emmes Fany AssessmentCPT-4: DSWA 12/17/2020emmes Fany Assessment CPT-4: IROWEckwezd07/17/2021Glucose Blood TestCPT-4: 68481 10/29/2020Urinalysis, dip stickCPT-4: 734118509/24/2020Glucose Blood TestCPT-4: 769893611/25/2019Urinalysis, dip stick Leukocytes:/Small, Nitrite:/Negative, Urobilinogen:/0.2, Protein:/Negative, Ph:/5.0, Blood:/Non-Hemolyzed:, Blood:/Trace, Specific Bigler:/1.020, Ketone:/Negative, Bilirubin:/Negative, Glucose:/NegativeCPT-4: 65928Bwyjwms 09/24/2020Patient Health QuestionnaireCPT-4: DPH08/19/2020Patient Health Questionnaire Little [...] Score:/0-4= Negative for depression- NO PLAN NEEDEDCPT-4: ZRZKHhvythn58/17/2020 Functional Assessment ADLs - Patient needs direct assistance, cuing, or supervision, to perform the following safely:/*Noassistance, cuing, or supervision needed, IADLs - Patient needs direct assistance, cuing, or supervision, to perform the following safely:/transportationCPT-4: WTKZyrzjxi75/17/2020Maltreatment Assessment 1. Have you relied on people [...] No plan required, re-evaluate annually or prnCPT-4: VWPHwtujqm35/06/2020Glucose Blood TestCPT-4: 4332352FLUCELVAX PFS VAC NO PRSV 0.5 ML IMCPT-4: 75518 06/11/2020Admin flu virus vaccineCPT-4: Q638295ElectrocardiogramCPT-4: 9219119Electrocardiogram Finding/NormalCPT-4: 43895Srhyzun87/12/2020Breast Cancer Screening Screening for Breast Cancer/Screened:/No/Mammogram not clinically indicated due to < 50 years ofageCPT-4: WUKGfwqdfn06/16/2020Colorectal Screening Screening for Colorectal Cancer/Screened:/No/CRC screening not clinically indicated due to < 50 years of ageCPT-4: AORFguuhnq77/16/2020Tobacco Assessment/ScreeningCPT-4: TCA01/01/2020Fall Risk AssessmentSNOMED CT: [id number] CPT-4: DF01/01/2020Functional AssessmentCPT-4: DFA01/01/2020Tobacco Assessment/Screening Tobacco Use/Never used tobaccoCPT-4: TCJYzgqbce88/31/2020Fall Risk Assessment Two or more falls in the past year?/No, Has there been a fall with injury in the last year?/No, Plan:/Monitor gait and balance PRN, no current action needed SNOMED CT: [id number] CPT-4: XNBEArjpkxu10/31/2020Functional Assessment ADLs - Patient needs direct assistance, cuing, or supervision, to perform the following safely:/*Noassistance, cuing, or supervision needed, IADLs - Patient needs direct assistance, cuing, or supervision, to perform the following safely:/managing finances, IADLs - Patient needs direct assistance, cuing, or supervision, to perform the following safely:/taking medications, IADLs - Patient needs direct assistance, cuing, or supervision, to perform the following safely:/transportationCPT-4: OLKLlnzbxq09/31/2020Biancames Fany Assessment CPT-4: DSWA11/28/2019Patient Health QuestionnaireCPT-4: DPHQ11/28/2019Patient [...] NO PLAN NEEDED, Plan:/*Active diagnosis of depressionCPT-4: OZQXEfwcdtr70/26/2020Semmes Fany Assessment SensationCPT-4: MGKXIahnbii10/26/2020Semmes Fany AssessmentCPT-4: DSWA 10/17/2019HypertensionCPT-4: HTN10/17/2019Hypertension Hypertension Follow Up Plan/Lifestyle modification weight reduction, Hypertension Follow Up Plan/Repeat BP measurement within one month, Hypertension Follow Up Plan/Lifestyle modification including reduce salt intakeCPT-4: KZHBwckrlg29/15/2020Semmes Fany AssessmentCPT-4: DS10/17/2019Glucose Blood TestCPT-4: [id number] Risk AssessmentSNOFR[facility] [id number] CPT-4: DFRA09/19/2019Functional AssessmentCPT-4: DFA111/20/2018Functional Assessment ADLs - [...] and balance PRN, no current action needed [facility]: [id number] CPT-4: VLUTPnnomgm81/18/2019Urinalysis, dip stickCPT-4: [id number] Urinalysis, dip stick Leukocytes:/Moderate, Nitrite:/Negative, Urobilinogen:/Normal, Protein:/Negative, Ph:/5.0, Blood:/Negative, Specific Big[place]:/1.015, Ketone:/Negative, Bilirubin:/Negative, Glucose:/NegativeCPT-4: [id number] 06/21/2019Tobacco Assessment/ScreeningCPT-4: TCA05/24/2019Patient Health QuestionnaireCPT-4: DPHQ05/24/2019PNEUMOCOCCAL VACC 13 JUNO IMCPT-4: 76305 05/24/2019Patient Health Questionnaire Little interest or pleasure [...] Depression/Patient negative for depression. No plan indicatedCPT-4: FCVSGbpsjxq49/22/2019Tobacco Assessment/Screening Tobacco Use/Never used tobacco, Plan/No cessation intervention due to other medical reason N/ACPT-4: BEAJxkfhlv83/22/2019Admin pneumococ vacCPT-4: G0009 05/24/2019AHA/REBECCA Classification AssessmentCPT-4: DAHA04/25/2019Controlled Substance ReportCPT-4: CTRSU04/25/2019TD VACCINE >7 y/o IMCPT-4: 1852970 AHA/REBECCA Classification Assessment Assign to:/Candida - Lab Template, Assign to:, AHA/A: At risk, but without structural heart disease., NYHA/I: AsymptomaticCPT-4: LUFINxxrtrz25/24/2019 Immunization AdministrationCPT-4: 9692873Controlled Substance Report Assign to:, Controlled Substance Report Range:/Past 24 months, Provider Attestation:/I attest that I reviewed the state PDMP report and find no clinical issues., Formatting Model/CDA Sections/CCDACPT-4: ZAJUJPoncmea86 Urinalysis, dip stickCPT-4: 2937391Urinalysis, dip stickCPT-4: 74213 03/28/2019Urinalysis, dip stick Leukocytes:/Moderate, Nitrite:/Negative, Urobilinogen:/Normal, Protein:/Negative, Ph:/5.0, Blood:/Negative, Specific Bigler:/1.030, Ketone:/5 points, Bilirubin:/Small, Glucose:/10/12CPT-4: 23437Ycunczb11Glucose Blood TestCPT-4: 9728573Electrocardiogram Finding/Sinus BradycardiaCPT-4: 42718Kildygg83Glucose Blood TestCPT-4: 3648957Semmes Fany Assessment Sensation/04/11CPT-4: AYBAXbihqmj69/10/2018Functional Assessment Activities of Daily Living/Bathing/0 - No [...] time, Independent Activities of Daily Living/IADLTotal:/4CPT- 4: DTCRzypkbp82/10/2018Fall Risk Assessment Timed: Up and Go/16 seconds - Increased Risk of Falls, Two or more falls in the past year?/No, Has there been a fall with injury in the last year?/Yes (High Risk)SNOMED CT: 866384105 CPT-4: DKSBKckgxdi79/10/2018Glucose Blood TestCPT-4: 1985421Urinalysis, dip stick Leukocytes:/Moderate, Nitrite:/Negative, Urobilinogen:/Normal, Protein:/Trace, Ph:/6.0, Blood:/Negative, Specific Bigler:/1.010, Ketone:/Negative, Bilirubin:/Small, Glucose:/NegativeCPT-4: 27405Uczcrig28/29/2018 Electrocardiogram Finding/Abnormal: _CPT-4: 17439Ohyhdrb73/29/0601K8K-CzmmfjhhtvjusgkEXP-7: 57699 EsexledM0S-DfxfouaxrxwscvtMQX-7: 94407ZuninotZ9G-QqcmxglfvqrgguwNEU-6: 46195 DrsbymbH3G-YgoefnwywfpoowwMHX-5: 71298LrgfptuT4B-UeexrcxrfpxqwwxKLI-0: 18405 YqynonkV8B-LggvblivmgrjqriHQG-9: 53763MygamqnL0J-HygpwwftaldwsxgRXN-3: 44301 LroxuunL8D-SmcnykspedzxymvQKB-4: 12048GopmbyqS0B-NfrvxesdlihtswgCOD-9: 11153 QxpwausT5L-CnymveivdoeaybgYAH-8: 16406MovsbxoV0D-EthjlxuevhmkvblZOH-3: 66380 FweybogA6G-PpqmzvfedfxokuqUZJ-5: 54548WkdswqnWkfxgrhqgv ReferralSNOMED CT: 755999752 CPT-4: D65HnwpkbmY4K-MvzcopzmfzsxgvgJDR-4: 36029Tglyava Vital Signs Date Vital 11/09/2023 Blood Pressure 1: 110/84 Code: 8480-6 BMI: 53.3 Code: 01997-9 Heart Rate 1: 71 bpm Height: 4'11 Code: 8302-2 Respiratory Rate: 16 bpm SpO2: 99% Temperature: 36.3 (C) / 97.3 (F) Weight: 263 lbs 12 oz Code: 27590-6 09/20/2023 Blood Pressure 1: 102/78 Code: 8480-6 BMI: 51.4 Code: 69705-7 Heart Rate 1: 77 bpm Height: 4'11 Code: 8302-2 Respiratory Rate: 16 bpm SpO2: 98% Temperature: 36.3 (C) / 97.3 (F) Weight: 254 lbs 8 oz Code: 46170-4 08/05/2023 Blood Pressure 1: 118/84 Code: 8480-6 BMI: 51.3 Code: 16023-8 Heart Rate 1: 70 bpm Height: 4'11 Code: 8302-2 Respiratory Rate: 16 bpm SpO2: 98% Temperature: 36.4 (C) / 97.5 (F) Weight: 254 lbs Code: 09522-8 06/24/2023 Blood Pressure 1: 122/76 Code: 8480-6 BMI: 51.1 Code: 49696-8 Heart Rate 1: 67 bpm Height: 4'11 Code: 8302-2 Respiratory Rate: 16 bpm SpO2: 98% Temperature: 36.7 (C) / 98.1 (F) Weight: 253 lbs Code: 90895-7 05/04/2023 Blood Pressure 1: 114/76 Code: 8480-6 BMI: 78.8 Code: 24615-3 Heart Rate 1: 70 bpm Height: 4' Code: 8302-2 Random Blood Sugar: 108/NaN Respiratory Rate: 16 bpm SpO2: 98% Temperature: 36.7 (C) / 98.1 (F) Weight: 258 lbs 4 oz Code: 34352-3 01/27/2023 Blood Pressure 1: 100/60 Code: 8480-6 BMI: 81.3 Code: 58828-8 Heart Rate 1: 79 bpm Height: 4' Code: 8302-2 Respiratory Rate: 20 bpm SpO2: 97% Temperature: 36.5 (C) / 97.7 (F) Weight: 266 lbs 8 oz Code: 83985-5 11/23/2022 Blood Pressure 1: 100/68 Code: 8480-6 BMI: 54.7 Code: 69010-0 Heart Rate 1: 80 bpm Height: 4'11 Code: 8302-2 Respiratory Rate: 16 bpm SpO2: 98% Temperature: 36.3 (C) / 97.3 (F) Weight: 270 lbs 12 oz Code: 05249-5 2022 Blood Pressure 1: 104/78 Code: 8480-6 BMI: 54.4 Code: 28202-7 Heart Rate 1: 90 bpm Height: 4'11 Code: 8302-2 Random Blood Sugar: 117/NaN Respiratory Rate: 18 bpm SpO2: 98% Temperature: 36.3 (C) / 97.3 (F) Weight: 269 lbs 9 oz Code: 10034-6 08/17/2022 Blood Pressure 1: 126/82 Code: 8480-6 BMI: 53.9 Code: 69455-0 Heart Rate 1: 81 bpm Height: 4'11 Code: 8302-2 Respiratory Rate: 16 bpm SpO2: 99% Temperature: 36.3 (C) / 97.3 (F) Weight: 266 lbs 12 oz Code: 23323-4 06/23/2022 Blood Pressure 1: 130/78 Code: 8480-6 BMI: 55.2 Code: 08617-1 Heart Rate 1: 75 bpm Height: 4'11 Code: 8302-2 Random Blood Sugar: 114/NaN Respiratory Rate: 18 bpm SpO2: 98% Temperature: 36.3 (C) / 97.3 (F) Weight: 273 lbs 3 oz Code: 02265-4 04/19/2022 Blood Pressure 1: 102/82 Code: 8480-6 BMI: 55.1 Code: 64066-5 Heart Rate 1: 85 bpm Height: 4'11 Code: 8302-2 Respiratory Rate: 18 bpm SpO2: 97% Temperature: 36.5 (C) / 97.7 (F) Weight: 272 lbs 12 oz Code: 97105-0 02/11/2022 Blood Pressure 1: 116/82 Code: 8480-6 BMI: 55.1 Code: 42586-2 Heart Rate 1: 90 bpm Height: 4'11 Code: 8302-2 Respiratory Rate: 18 bpm SpO2: 98% Temperature: 36.1 (C) / 97.0 (F) Weight: 272 lbs 12 oz Code: 86007-3 12/03/2021 Blood Pressure 1: 118/76 Code: 8480-6 BMI: 54.1 Code: 78674-1 Heart Rate 1: 82 bpm Height: 4'11 Code: 8302-2 Respiratory Rate: 16 bpm SpO2: 98% Temperature: 36.4 (C) / 97.5 (F) Weight: 268 lbs Code: 46529-6 11/02/2021 Blood Pressure 1: 108/86 Code: 8480-6 BMI: 55.2 Code: 73366-7 Heart Rate 1: 81 bpm Height: 4'11 Code: 8302-2 Respiratory Rate: 16 bpm SpO2: 98% Temperature: 36.3 (C) / 97.3 (F) Weight: 273 lbs 6 oz Code: 23011-7 10/07/2021 Blood Pressure 1: 122/78 Code: 8480-6 BMI: 53.7 Code: 66783-8 Heart Rate 1: 80 bpm Height: 4'11 Code: 8302-2 Respiratory Rate: 18 bpm SpO2: 98% Temperature: 36.6 (C) / 97.8 (F) Weight: 266 lbs Code: 70616-9 04/01/2021 Blood Pressure 1: 116/84 Code: 8480-6 BMI: 53.4 Code: 73459-5 Heart Rate 1: 78 bpm Height: 4'11 Code: 8302-2 Respiratory Rate: 18 bpm SpO2: 98% Temperature: 36.3 (C) / 97.3 (F) Weight: 264 lbs 4 oz Code: 10987-9 02/11/2021 Blood Pressure 1: 96/74 Code: 8480-6 BMI: 53.1 Code: 21959-4 Heart Rate 1: 72 bpm Height: 4'11 Code: 8302-2 Respiratory Rate: 18 bpm SpO2: 98% Temperature: 36.5 (C) / 97.7 (F) Weight: 263 lbs Code: 87288-2 01/29/2021 Blood Pressure 1: 128/70 Code: 8480-6 BMI: 53.3 Code: 30197-4 Heart Rate 1: 75 bpm Height: 4'11 Code: 8302-2 Respiratory Rate: 20 bpm SpO2: 95% Temperature: 37.1 (C) / 98.7 (F) Weight: 264 lbs Code: 83918-3 12/17/2020 Blood Pressure 1: 134/82 Code: 8480-6 BMI: 53.1 Code: 04526-3 Heart Rate 1: 90 bpm Height: 4'11 Code: 8302-2 Respiratory Rate: 16 bpm SpO2: 98% Temperature: 36.4 (C) / 97.5 (F) Weight: 263 lbs Code: 66582-3 10/29/2020 Blood Pressure 1: 98/66 Code: 8480-6 BMI: 53.3 Code: 18391-3 Heart Rate 1: 80 bpm Height: 4'11 Code: 8302-2 Respiratory Rate: 16 bpm SpO2: 99% Temperature: 36.6 (C) / 97.9 (F) Weight: 264 lbs Code: 48573-0 09/24/2020 Blood Pressure 1: 122/84 Code: 8480-6 BMI: 53.1 Code: 70819-2 Heart Rate 1: 68 bpm Height: 4'11 Code: 8302-2 Respiratory Rate: 16 bpm Temperature: 36.7 (C) / 98.1 (F) Weight: 263 lbs Code: 42703-6 06/11/2020 Blood Pressure 1: 116/68 Code: 8480-6 BMI: 55.1 Code: 81807-2 Heart Rate 1: 90 bpm Height: 4'11 Code: 8302-2 Random Blood Sugar: 127/NaN Respiratory Rate: 16 bpm SpO2: 98% Temperature: 36.5 (C) / 97.7 (F) Weight: 273 lbs Code: 71961-5 05/14/2020 Blood Pressure 1: 100/82 Code: 8480-6 BMI: 54.7 Code: 98129-2 Heart Rate 1: 86 bpm Height: 4' Code: 8302-2 Respiratory Rate: 18 bpm SpO2: 98% Temperature: 36.6 (C) / 97.9 (F) Weight: 271 lbs Code: 82354-5 04/17/2020 Blood Pressure 1: 10 7 Code: 8480-6 Heart Rate 1: 90 bpm Weight: 264 lbs Code: 98172-7 03/21/2020 Blood Pressure 1: 139/87 Code: 8480-6 BMI: 53.9 Code: 12234-5 Heart Rate 1: 86 bpm Height: 4'11 Code: 8302-2 SpO2: % Weight: 267 lbs Code: 74171-6 02/14/2020 BMI: 54.5 Code: 91845-5 Height: 4'11 Code: 8302-2 Weight: 270 lbs Code: 97476-2 01/24/2020 BMI: 55.9 Code: 48591-1 Height: 4'11 Code: 8302-2 Weight: 277 lbs Code: 10868-0 01/01/2020 Random Blood Sugar: 171/NaN 11/28/2019 Blood Pressure 1: 120/85 Code: 8480-6 BMI: 58.8 Code: 50977-3 Heart Rate 1: 92 bpm Height: 4'11 Code: 8302-2 Respiratory Rate: 18 bpm SpO2: 97% Temperature: 36.4 (C) / 97.5 (F) Weight: 291 lbs Code: 47070-5 10/17/2019 Blood Pressure 1: 110/62 Code: 8480-6 BMI: 59.6 Code: 90452-3 Heart Rate 1: 101 bpm Height: 4'11 Code: 8302-2 Random Blood Sugar: 144/NaN Respiratory Rate: 16 bpm SpO2: 99% Temperature: 36.7 (C) / 98.0 (F) Weight: 295 lbs Code: 47643-3 09/19/2019 Blood Pressure 1: 128/82 Code: 8480-6 BMI: 58.8 Code: 31558-4 Heart Rate 1: 98 bpm Height: 4'11 Code: 8302-2 Respiratory Rate: 18 bpm SpO2: 98% Temperature: 37.5 (C) / 99.5 (F) Weight: 291 lbs Code: 89817-1 07/04/2019 Random Blood Sugar: 131/NaN 06/21/2019 Blood Pressure 1: 136/78 Code: 8480-6 BMI: 56.8 Code: 81469-0 Heart Rate 1: 78 bpm Height: 4'11 Code: 8302-2 Random Blood Sugar: 118/NaN Reported Pain Level (Scale 0-10): Respiratory Rate: 18 bpm SpO2: 99% Temperature: 36.7 (C) / 98.1 (F) Weight: 281 lbs Code: 21626-0 05/24/2019 Blood Pressure 1: 110/68 Code: 8480-6 BMI: 56.8 Code: 87342-6 Heart Rate 1: 83 bpm Height: 4'11 Code: 8302-2 Respiratory Rate: 18 bpm SpO2: 99% Temperature: 36.5 (C) / 97.7 (F) Weight: 281 lbs Code: 20957-7 04/25/2019 Blood Pressure 1: 140/98 Code: 8480-6 BMI: 55.3 Code: 70878-6 Heart Rate 1: 100 bpm Height: 4'11 Code: 8302-2 Respiratory Rate: 20 bpm SpO2: 98% Temperature: 36.3 (C) / 97.3 (F) Weight: 274 lbs Code: 87324-4 03/28/2019 Blood Pressure 1: 128/88 Code: 8480-6 BMI: 57.1 Code: 37385-2 Heart Rate 1: 88 bpm Height: 4'11 Code: 8302-2 Respiratory Rate: 16 bpm SpO2: 99% Temperature: 36.3 (C) / 97.4 (F) Weight: 282 lbs 13 oz Code: 46586-4 02/14/2019 Blood Pressure 1: 122/80 Code: 8480-6 BMI: 56.1 Code: 86794-6 Heart Rate 1: 102 bpm Height: 4'11 Code: 8302-2 Respiratory Rate: 20 bpm SpO2: 98% Temperature: 37.2 (C) / 99.0 (F) Weight: 278 lbs Code: 84067-3 01/31/2019 Blood Pressure 1: 144/82 Code: 8480-6 BMI: 55.3 Code: 72671-5 Heart Rate 1: 104 bpm Height: 4'11 Code: 8302-2 Random Blood Sugar: 110/NaN Respiratory Rate: 20 bpm SpO2: 99% Temperature: 37.0 (C) / 98.6 (F) Weight: 274 lbs Code: 11297-0 12/27/2018 Blood Pressure 1: 110/78 Code: 8480-6 BMI: 54.3 Code: 21095-2 Heart Rate 1: 66 bpm Height: 4'11 Code: 8302-2 Karnofsky Score (0-100): 60 Random Blood Sugar: 112/NaN Respiratory Rate: 18 bpm SpO2: 99% Temperature: 36.8 (C) / 98.2 (F) Weight: 269 lbs Code: 62014-7 11/29/2018 Blood Pressure 1: 128/80 Code: 8480-6 BMI: 52.5 Code: 88047-3 Heart Rate 1: 55 bpm Height: 4'11 Code: 8302-2 Respiratory Rate: 18 bpm SpO2: 97% Temperature: 36.4 (C) / 97.5 (F) Weight: 260 lbs Code: 11248-2 10/04/2018 Blood Pressure 1: 118/74 Code: 8480-6 BMI: 55.5 Code: 08642-3 Heart Rate 1: 74 bpm Height: 4'11 Code: 8302-2 Respiratory Rate: 18 bpm SpO2: 98% Temperature: 36.9 (C) / 98.4 (F) Weight: 275 lbs Code: 49784-0 09/06/2018 Blood Pressure 1: 110/80 Code: 8480-6 BMI: 55.7 Code: 15332-2 Heart Rate 1: 74 bpm Height: 4'11 Code: 8302-2 Random Blood Sugar: 106/NaN Respiratory Rate: 16 bpm SpO2: 98% Temperature: 36.5 (C) / 97.7 (F) Weight: 276 lbs Code: 49408-3 08/09/2018 Blood Pressure 1: 115/77 Code: 8480-6 BMI: 56.6 Code: 27551-3 Heart Rate 1: 75 bpm Height: 4'11 Code: 8302-2 Random Blood Sugar: 137/NaN Respiratory Rate: 18 bpm SpO2: 98% Temperature: 37.4 (C) / 99.3 (F) Weight: 280 lbs Code: 15355-2 07/12/2018 Blood Pressure 1: 125/78 Code: 8480-6 BMI: 57.2 Code: 99550-2 Heart Rate 1: 72 bpm Height: 4'11 Code: 8302-2 Random Blood Sugar: 103/NaN Respiratory Rate: 16 bpm SpO2: 98% Temperature: 36.3 (C) / 97.3 (F) Weight: 283 lbs Code: 72502-0 06/14/2018 Blood Pressure 1: 121/75 Code: 8480-6 BMI: 59.0 Code: 61418-3 Heart Rate 1: 84 bpm Height: 4'11 Code: 8302-2 Random Blood Sugar: 92/NaN Respiratory Rate: 16 bpm SpO2: 98% Temperature: 37.6 (C) / 99.7 (F) Weight: 292 lbs Code: 07262-8 05/31/2018 Blood Pressure 1: 113/71 Code: 8480-6 BMI: 59.0 Code: 74634-3 Heart Rate 1: 71 bpm Height: 4'11 Code: 8302-2 Random Blood Sugar: 123/NaN Respiratory Rate: 16 bpm SpO2: 98% Temperature: 37.4 (C) / 99.4 (F) Weight: 292 lbs 2 oz Code: 21841-3 Reason For Visit Reason For Visit Effective [...] Performer Location Location Address Codes Magdi e ([id number]) (EST PT) DETAILED TE LEHEALTH VISIT Diagnosis: Type 2 diabetes mellitus with peripheral neuropathy[ICD10: E11.42] Diagnosis: Hypertensive heart disease without heart failure[ICD10: I11.9] Diagnosis: Major depression, recurrent[ICD10: F33.9] Diagnosis: Adult BMI 50.0-59.9 kg/sq m[ICD10: Z68.43]Anna Bk Fehzcb52374 [address] [address]HWE-6: 99541 11/09/2023([id number]) (EST PT) DETAILED TELEHEALTH VISIT Diagnosis: Type 2 diabetes mellitus with hyperglycemia, without long-term current use of insulin[ICD10: E11.65] Diagnosis: Impetigo[ICD10: L01.00] Diagnosis: Major depression, recurrent[ICD10: F33.9]Anna Bourgeois Qvzkul06259 [address] [address]DYO-6: 44444 10/21/2023([id number]) Home or Residence Visit Est Pt - Moderate Level, 40 mins Diagnosis: Type 2 diabetes mellitus with peripheral neuropathy[ICD10: E11.42] Diagnosis: Hypertensive heart disease without heart failure[ICD10: I11.9] Diagnosis: Upper respiratory infection[ICD10: J06.9]Anna Bk Qcojza35440 [address] [address]RDV-3: 15280 09/20/2023([id number]) Home or Residence Visit Est Pt - High Level, 60 mins Diagnosis: Type 2 diabetes mellitus with hyperglycemia, without long-term current use of insulin[ICD10: E11.65] Diagnosis: Right foot pain[ICD10: M79.671] Diagnosis: Hypertensive heart disease without heart failure[ICD10: I11.9] Diagnosis: Encounter for immunization[ICD10: Z23]Anna Bourgeois Office [address] [place] [address] 74447LAX-4: [phone] ([id number]) Home or Residence Visit Est Pt - Moderate Level, 40 mins Diagnosis: Type 2 diabetes mellitus with peripheral neuropathy[ICD10: E11.42] Diagnosis: Hypertensive heart disease without heart failure[ICD10: I11.9] Diagnosis: Major depression, recurrent[ICD10: F33.9] Diagnosis: Adult BMI 50.0-59.9 kg/sq m[ICD10: Z68.43]Annahussein Bourgeois [address] [place] [address] 03292UJO-4: 51935 06/24/2023([id number]) Home or Residence Visit Est Pt - Moderate Level, 40 mins Diagnosis: Type 2 diabetes mellitus with peripheral neuropathy[ICD10: E11.42] Diagnosis: Hyperlipidemia, mixed[ICD10: E78.2] Diagnosis: Hypertensive heart disease without heart failure[ICD10: I11.9] Diagnosis: Major depression, recurrent[ICD10: F33.9] Diagnosis: Vitamin D deficiency[ICD10: E55.9] Diagnosis: Nonintractable epileptic seizures due to external causes, without status epilepticus[ICD10: G40.509]Anna Bk Pcwnar[address] [place] [address] 50796RJU-9: [id number]/04/2023([id number]) Home or Residence Visit Est Pt - Moderate Level, 40 mins Diagnosis: Type 2 diabetes mellitus with peripheral neuropathy[ICD10: E11.42] Diagnosis: Hypertensive heart disease[ICD10: I11.9] Diagnosis: Major depression, recurrent[ICD10: F33.9] Diagnosis: Insomnia[ICD10: G47.00] Diagnosis: Adult BMI 50.0-59.9 kg/sq m[ICD10: Z68.43]Annahussein Bourgeois Q[address] [place] [address] 42428ETL-8: 53251 01/27/2023(23396) Home or Residence Visit Est Pt - Moderate Level, 40 mins Diagnosis: GERD (gastroesophageal reflux disease)[ICD10: K21.9] Diagnosis: Type 2 diabetes mellitus with peripheral neuropathy[ICD10: E11.42] Diagnosis: Hypertensive heart disease[ICD10: I11.9] Diagnosis: Major depression, recurrent[ICD10: F33.9]Anna Bk Kcaeyg[address] [place] [address] 08470DYD-6: 03833 11/23/2022([id number]) Home or Residence Visit Est Pt - Moderate Level, 40 mins Diagnosis: Type 2 diabetes mellitus with peripheral neuropathy[ICD10: E11.42] Diagnosis: Hypertensive heart disease[ICD10: I11.9] Diagnosis: Major depression, recurrent[ICD10: F33.9] Diagnosis: Open wound of right middle finger[ICD10: S61.A] Diagnosis: Adult BMI 50.0-59.9 kg/sq m[ICD10: Z68.43] Diagnosis: Encounter for screening for tobacco use[ICD10: Z01.89]Anna Bk Nijnsz[address] [place] [address] 92305 CPT-4: 8887262([id number]) HOME VISIT EST PATIENT Diagnosis: Type 2 diabetes mellitus with peripheral neuropathy[ICD10: E11.42] Diagnosis: Hypertension[ICD10: I10] Diagnosis: Adult BMI 50.0-59.9 kg/sq m[ICD10: Z68.43] Diagnosis: Fungal infection of skin[ICD10: B36.9] Diagnosis: Encounter for immunization[ICD10: Z23] Diagnosis: Influenza vaccine refused[ICD10: Z28.21]Anna Bk Jmfufi[address] [place] [address] 70457IOE-8: 96321 08/17/2022(40806) HOME VISIT EST PATIENT Diagnosis: Type 2 diabetes mellitus with peripheral neuropathy[ICD10: E11.42] Diagnosis: Hypertensive heart disease[ICD10: I11.9] Diagnosis: Major depression, recurrent[ICD10: F33.9] Diagnosis: Hypothyroid[ICD10: E03.9] Diagnosis: Obstructive sleep apnea (adult) (pediatric)[ICD10: G47.33] Diagnosis: Adult BMI 50.0-59.9 kg/sq m[ICD10: Z68.43] Diagnosis: Influenza vaccine refused[ICD10: Z28.21]Anna Bk Wxqgrp[address] [place] [address] 43070TEX-9: 74865 06/23/2022([id number]) HOME VISIT EST PATIENT Diagnosis: Hypertension[ICD10: I10] Diagnosis: Type 2 diabetes mellitus with peripheral neuropathy[ICD10: E11.42] Diagnosis: Adult BMI 50.0-59.9 kg/sq m[ICD10: Z68.43] Diagnosis: Hyperlipidemia, mixed[ICD10: E78.2]Chivo Johnson C[address]nrk[address] [place] [address] 55576WWT-2: 6607897(04070) HOME VISIT EST PATIENT Diagnosis: Hypertension[ICD10: I10] Diagnosis: Type 2 diabetes mellitus with peripheral neuropathy[ICD10: E11.42] Diagnosis: Adult BMI 50.0-59.9 kg/sq m[ICD10: Z68.43] Diagnosis: Hyperlipidemia, mixed[ICD10: E78.2] Diagnosis: Obstructive sleep apnea (adult) (pediatric)[ICD10: G47.33] Diagnosis: Allergic rhinitis[ICD10: J30.9] Diagnosis: (Z00.00-V70.9) Encounter for general adult medical examination without abnormal findings[ICD10: Z00.00]Chivo Johnson Ghmill[address] [place] [address] 62060HBF-6: [id number](77383) HOME VISIT EST PATIENT Diagnosis: Hypertension[ICD10: I10] Diagnosis: Hypertensive heart disease[ICD10: I11.9] Diagnosis: Type 2 diabetes mellitus with peripheral neuropathy[ICD10: E11.42] Diagnosis: Adult BMI 50.0-59.9 kg/sq m[ICD10: Z68.43] Diagnosis: Vitamin D deficiency[ICD10: E55.9] Diagnosis: Hyperlipidemia, mixed[ICD10: E78.2]Mikey Engel Qozywu1044[address] [place] [address] 95180EHN-2: 7380745(84848) HOME VISIT EST PATIENT Diagnosis: Adult BMI 50.0-59.9 kg/sq m[ICD10: Z68.43] Diagnosis: Type 2 diabetes mellitus with peripheral neuropathy[ICD10: E11.42] Diagnosis: Syncope and collapse[ICD10: R55] Diagnosis: Family history of seizures[ICD10: Z84.89] Diagnosis: Obstructive sleep apnea (adult) (pediatric)[ICD10: G47.33]Chivo SweetSesar Dvpcdm[address] [place] [address] 18397 CPT-4: [id number]/(83375) HOME VISIT EST PATIENT Diagnosis: Type 2 diabetes mellitus with peripheral neuropathy[ICD10: E11.42] Diagnosis: Adult BMI 50.0-59.9 kg/sq m[ICD10: Z68.43] Diagnosis: Diarrhea[ICD10: R19.7] Diagnosis: Syncope and collapse[ICD10: R55] Diagnosis: Family history of seizures[ICD10: Z84.89]Chivo SalvadorEcho [address] [address]ZLU-9: 52813 10/07/2021(33152) Other Reason/Patient not seen Diagnosis: Patient not seen[ICD10: UXZ.01]Chivo SweetSesar [address] [address]846ZDO-7: [phone](20813) (EST PT) EXPANDED PROBLEM FOCUSED TELEHEALTH VISIT Diagnosis: Type 2 diabetes mellitus with peripheral neuropathy[ICD10: E11.42] Diagnosis: GERD (gastroesophageal reflux disease)[ICD10: K21.9] Diagnosis: Hyperlipidemia, unspecified[ICD10: E78.5] Diagnosis: Diarrhea[ICD10: R19.7]Chivo SalvadorEcho [address] [address]VBD-8: [id number]/13/2020(50035) (EST PT) EXPANDED PROBLEM FOCUSED TELEHEALTH VISIT Diagnosis: Type 2 diabetes mellitus with peripheral neuropathy[ICD10: E11.42] Diagnosis: GERD (gastroesophageal reflux disease)[ICD10: K21.9] Diagnosis: Hyperlipidemia, unspecified[ICD10: E78.5] Diagnosis: Dyspnea, unspecified[ICD10: R06.00]Chivo Johnson [address] [address]DUY-4: [phone](13825) (EST PT) EXPANDED PROBLEM FOCUSED TELEHEALTH VISIT Diagnosis: COVID-19 virus RNA test result positive at limit of detection[ICD10: U07.1] Diagnosis: Type 2 diabetes mellitus with peripheral neuropathy[ICD10: E11.42] Diagnosis: GERD (gastroesophageal reflux disease)[ICD10: K21.9] Diagnosis: Adjustment disorder with mixed anxiety and depressed mood[ICD10: F43.23]Chivo Johnson [address] [address]WBT-5: [id number](15902) (EST PT) DETAILED TELEHEALTH VISIT Diagnosis: Upper respiratory infection[ICD10: J06.9] Diagnosis: Type 2 diabetes mellitus with peripheral neuropathy[ICD10: E11.42] Anna CulverJoseariane [address] [address]RUC-2: [id number](24895) (EST PT) EXPANDED PROBLEM FOCUSED TELEHEALTH VISIT Diagnosis: Syncope and collapse[ICD10: R55] Diagnosis: Type 2 diabetes mellitus with peripheral neuropathy[ICD10: E11.42] Diagnosis: Family history of seizures[ICD10: Z84.89] Diagnosis: Hypertensive heart disease with heart failure[ICD10: I11.0] Diagnosis: Chronic kidney disease, stage 2 (mild)[ICD10: N18.2]Chivo Sweetcarissa Tejada [address] [address]ZBZ-6: [phone](15883) (EST PT) DETAILED TELEHEALTH VISIT Diagnosis: Syncope and collapse[ICD10: R55] Diagnosis: Type 2 diabetes mellitus with peripheral neuropathy[ICD10: E11.42] Diagnosis: Family history of seizures[ICD10: Z84.89] Diagnosis: Hypertensive heart disease with heart failure[ICD10: I11.0] Diagnosis: Chronic kidney disease, stage 2 (mild)[ICD10: N18.2] Diagnosis: Anorexia[ICD10: R63.0]Anna CulverMallory [address] [address]NPJ-8: [phone](22311) (EST PT) EXPANDED PROBLEM FOCUSED TELEHEALTH VISIT Diagnosis: Type 2 diabetes mellitus with peripheral neuropathy[ICD10: E11.42] Diagnosis: Hypertensive heart disease with heart failure[ICD10: I11.0] Diagnosis: Post-traumatic stress disorder, unspecified[ICD10: F43.10] Diagnosis: Adjustment disorder with mixed anxiety and depressed mood[ICD10: F43.23]Chivo Elizabeth N[address]fu[address] [place], [place] [address]CPT-4: [id number]/HOME VISIT EST PATIENT Diagnosis: Type 2 diabetes mellitus with peripheral neuropathy[ICD10: E11.42] Diagnosis: Hypertensive heart disease with heart failure[ICD10: I11.0]Annahussein Bourgeois [place] [id number] CPT-4: 3657141/(09898) (EST PT) DETAILED TELEHEALTH VISIT Diagnosis: Blister[ICD10: T14.8XXA] Diagnosis: Type 2 diabetes mellitus with peripheral neuropathy[ICD10: E11.42] Diagnosis: Anorexia[ICD10: R63.0] Diagnosis: Obstructive sleep apnea (adult) (pediatric)[ICD10: G47.33]Anna Bk Xjctzm[address] [place], [place] [address] CPT-4: 4752364/(37159) (EST PT) DETAILED TELEHEALTH VISIT Diagnosis: Type 2 diabetes mellitus with peripheral neuropathy[ICD10: E11.42] Diagnosis: Hypertensive heart disease with heart failure[ICD10: I11.0] Diagnosis: Adjustment disorder with mixed anxiety and depressed mood[ICD10: F43.23] Diagnosis: Encounter for screening for tobacco use[ICD10: Z01.89]Anna Bourgeois [id number] [place], [place] [id number] CPT-4: [id number] VISIT EST PATIENT Diagnosis: Type 2 diabetes mellitus with peripheral neuropathy[ICD10: E11.42] Diagnosis: Elevated liver enzymes[ICD10: R74.8] Diagnosis: Hyperlipidemia, unspecified[ICD10: E78.5]Anna Bourgeois [address] [place] [address] 13345RGL-9: [id number] 02/11/2021HOME VISIT EST PATIENT Diagnosis: Hypertensive heart disease with heart failure[ICD10: I11.0] Diagnosis: Type 2 diabetes mellitus with peripheral neuropathy[ICD10: E11.42] Diagnosis: Chronic kidney disease, stage 2 (mild)[ICD10: N18.2] Diagnosis: History of bladder surgery[ICD10: Z98.890] Diagnosis: Urinary retention with incomplete bladder emptying[ICD10: R33.9] Diagnosis: GERD (gastroesophageal reflux disease)[ICD10: K21.9]Chivo Edna Tejada [address] [place] [address] 37957MPT-4: [id number]) (EST PT) DETAILED TELEHEALTH VISIT Diagnosis: Hypertensive [...] for screening for depression[ICD10: Z13.31] Anna Bk [address] [place] [address] 06943MFA-8: [id number] VISIT EST PATIENT Diagnosis: Type 2 diabetes mellitus with peripheral neuropathy[ICD10: E11.42] Diagnosis: Hypertensive heart disease with heart failure[ICD10: I11.0] Diagnosis: Obstructive sleep apnea (adult) (pediatric)[ICD10: G47.33] Diagnosis: Anorexia[ICD10: R63.0]Anna Bk Dj[address] [place] [address] 88212IFY-9: [id number]) (EST PT) EXPANDED PROBLEM FOCUSED TELEHEALTH VISIT Diagnosis: Superficial burn of multiple sites of right hand, subsequent encounter[ICD10: T23.191D] Diagnosis: Type 2 diabetes mellitus with peripheral neuropathy[ICD10: E11.42] Diagnosis: Essential (primary) hypertension[ICD10: I10] Diagnosis: History of surgery on right wrist[ICD10: Z98.890] Diagnosis: GERD (gastroesophageal reflux disease)[ICD10: K21.9]Chivo Salvadorsofiya [place] [address] [place] [address] 09471YOD-6: [id number]) (EST PT) EXPANDED PROBLEM FOCUSED TELEHEALTH VISIT Diagnosis: Type 2 diabetes mellitus with peripheral neuropathy[ICD10: E11.42] Diagnosis: Essential (primary) hypertension[ICD10: I10] Diagnosis: History of surgery on right wrist[ICD10: Z98.890]Anna Culver [place] [address] [place] [address] 42976FSV-0: [id number] VISIT EST PATIENT Diagnosis: Type 2 diabetes mellitus with peripheral neuropathy[ICD10: E11.42] Diagnosis: Chronic kidney disease, stage 2 (mild)[ICD10: N18.2] Diagnosis: Right wrist pain[ICD10: M25.531] Diagnosis: Essential (primary) hypertension[ICD10: I10] Diagnosis: GERD (gastroesophageal reflux disease)[ICD10: K21.9] Diagnosis: History of surgery on right wrist[ICD10: Z98.890] Diagnosis: Adjustment disorder with mixed anxiety and depressed mood[ICD10: F43.23]Anna Bourgeois Chiid[address] [place] [address] 30233LXY-8: [id number]/HOME VISIT EST PATIENT Diagnosis: Type 2 diabetes mellitus with peripheral neuropathy[ICD10: E11.42] Diagnosis: Hypertensive heart disease with heart failure[ICD10: I11.0] Diagnosis: Adjustment disorder with mixed anxiety and depressed mood[ICD10: F43.23] Diagnosis: GERD (gastroesophageal reflux disease)[ICD10: K21.9] Diagnosis: Abnormal urine finding[ICD10: R82.90][facility] [address] [place] [address] 81452UFS-2: [id number] ([id number]) (EST PT) EXPANDED PROBLEM FOCUSED TELEHEALTH VISIT Diagnosis: Type 2 diabetes mellitus with peripheral neuropathy[ICD10: E11.42] Anna Bourgeois Qrhufj[address] [place] [address] 48916UEE-1: [id number]/26/2019([id number]) (EST PT) EXPANDED PROBLEM FOCUSED TELEHEALTH VISIT Diagnosis: Type 2 diabetes mellitus with peripheral neuropathy[ICD10: E11.42] Diagnosis: Adjustment disorder with mixed anxiety and depressed mood[ICD10: F43.23] Diagnosis: Polyneuropathy, unspecified[ICD10: G62.9]Anna Bourgeois Eoaesg[address] [place] [address] 94775WJL-6: 44186 08/19/2020([id number]) (EST PT) PROBLEM FOCUSED TELEHEALTH VISIT Diagnosis: Type 2 diabetes mellitus with peripheral neuropathy[ICD10: E11.42] Diagnosis: Essential (primary) hypertension[ICD10: I10]Anna Bourgeois Oublbx[address] [place] [address] 47053RJV-1: 61517 07/22/2020([id number]) REMOTE E/M EST. PT 15MINS ([id number]) Diagnosis: Type 2 diabetes mellitus with peripheral neuropathy[ICD10: E11.42] Diagnosis: Essential (primary) hypertension[ICD10: I10] Diagnosis: Encounter for screening, unspecified[ICD10: Z13.9]Anna Tejada Mdmbgl[address] [place] [address] 16974MRQ-1: I196755/03/2020HOME VISIT EST PATIENT Diagnosis: Hypertensive heart disease with heart failure[ICD10: I11.0] Diagnosis: Chronic kidney disease, unspecified[ICD10: N18.9] Diagnosis: Type 2 diabetes mellitus with peripheral neuropathy[ICD10: E11.42] Diagnosis: Hyperlipidemia, unspecified[ICD10: E78.5] Diagnosis: Hypothyroidism, unspecified[ICD10: E03.9] Diagnosis: Encounter for immunization[ICD10: Z23] Diagnosis: (Z12.4-V76.2) Encounter for screening for malignant neoplasm of cervix[ICD10: Z12.4]Anna Bourgeois Brpnvh[address] [place] [address] 62901XJM-1: 5905632/06/2020HOME VISIT EST PATIENT Diagnosis: Type 2 diabetes mellitus with peripheral neuropathy[ICD10: E11.42] Diagnosis: Right wrist pain[ICD10: M25.531] Diagnosis: Hypertensive heart disease with heart failure[ICD10: I11.0]Anna Bourgeois Vzjsgm[address] [place] [address] 81485 CPT-4: [id number]/09/2020([id number]) (EST PT) EXPANDED PROBLEM FOCUSED TELEHEALTH VISIT Diagnosis: Type 2 diabetes mellitus with peripheral neuropathy[ICD10: E11.42] Diagnosis: Chronic kidney disease, unspecified[ICD10: N18.9] Diagnosis: (Z12.31-V76.12) Encounter for screening mammogram for malignant neoplasm of breast[ICD10: Z12.31] Diagnosis: (Z12.11-V76.51) Encounter for screening for malignant neoplasm of colon[ICD10: Z12.11]Anna Friedmanlucilaelyssa Ngxcvv[address]70[address] [place] [address] 86650SUK-4: [id number]) (EST PT) EXPANDED PROBLEM FOCUSED TELEHEALTH VISIT Diagnosis: Essential (primary) hypertension[ICD10: I10] Diagnosis: Adult BMI 50.0-59.9 kg/sq m[ICD10: Z68.43]Anna Bourgeois Thl[address] [place] [address] 62718TNA-4: 00584 03/21/2020([id number]) (EST PT) EXPANDED PROBLEM FOCUSED TELEHEALTH VISIT Diagnosis: Type 2 diabetes mellitus with peripheral neuropathy[ICD10: E11.42] Diagnosis: Essential (primary) hypertension[ICD10: I10] Diagnosis: Abrasion of toe[ICD10: S90.416A] Diagnosis: Encounter for screening for malignant neoplasm of cervix[ICD10: Z12.4] Diagnosis: Obstructive sleep apnea (adult) (pediatric)[ICD10: G47.33]Anna CulverMallory Jyktir[address] [place] [address] 38460 CPT-4: [id number]) (EST PT) EXPANDED PROBLEM FOCUSED TELEHEALTH VISIT Diagnosis: Type 2 diabetes mellitus with peripheral neuropathy[ICD10: E11.42] Diagnosis: Essential (primary) hypertension[ICD10: I10]Anna CulverArthur Gsdchd[address] [place] [address] 95089CAK-2: 07743 01/24/2020([id number]) (EST PT) EXPANDED PROBLEM FOCUSED TELEHEALTH VISIT Diagnosis: Type 2 diabetes mellitus with peripheral neuropathy[ICD10: E11.42] Diagnosis: Essential (primary) hypertension[ICD10: I10] Diagnosis: [facility][ICD10: H10.029] Diagnosis: Syncope and collapse[ICD10: R55] Diagnosis: Encounter for screening for tobacco use[ICD10: Z01.89]Anna Bk Kdveiy[address] [place] [address] 86093 CPT-4: [id number]/HOME VISIT EST PATIENT Diagnosis: Adjustment disorder with mixed anxiety and depressed mood[ICD10: F43.23] Diagnosis: Hypertensive heart disease with heart failure[ICD10: I11.0] Diagnosis: Adult BMI 50.0-59.9 kg/sq m[ICD10: Z68.43]Anna CulverJosemadison healthelyssa [address] [address]QAU-1: 45086 11/28/2019HOME VISIT EST PATIENT Diagnosis: Essential (primary) hypertension[ICD10: I10] Diagnosis: Type 2 diabetes mellitus without complications[ICD10: E11.9] Diagnosis: Obstructive sleep apnea (adult) (pediatric)[ICD10: G47.33] Diagnosis: Asthma[ICD10: J45.909] Diagnosis: Adjustment disorder with mixed anxiety and depressed mood[ICD10: F43.23]Anna Bk Qiemzi[address] [place] [address] 42730HYG-3: [id number] VISIT EST PATIENT Diagnosis: Type 2 diabetes mellitus without complications[ICD10: E11.9] Diagnosis: Hypertensive heart disease with heart failure[ICD10: I11.0] Diagnosis: Chronic kidney disease, unspecified[ICD10: N18.9] Diagnosis: Mixed incontinence[ICD10: N39.46]Anna Bk Mjmfes[address] [place] [address] 10259UTZ-1: [id number] VISIT EST PATIENT Diagnosis: Chronic kidney disease, unspecified[ICD10: N18.9] Diagnosis: Essential (primary) hypertension[ICD10: I10] Diagnosis: Hypertensive heart disease with heart failure[ICD10: I11.0] Diagnosis: Hypothyroidism, unspecified[ICD10: E03.9] Diagnosis: Mixed incontinence[ICD10: N39.46] Diagnosis: Type 2 diabetes mellitus without complications[ICD10: E11.9][facility] Afudbq[address] [place] [address] 95327TMZ- 4: [id number] VISIT EST PATIENT Diagnosis: Hyperlipidemia, unspecified[ICD10: E78.5] Diagnosis: Hypothyroidism, unspecified[ICD10: E03.9] Diagnosis: Mixed incontinence[ICD10: N39.46] Diagnosis: Type 2 diabetes mellitus without complications[ICD10: E11.9] Diagnosis: Chronic kidney disease, unspecified[ICD10: N18.9] Diagnosis: Obstructive sleep apnea (adult) (pediatric)[ICD10: G47.33] Diagnosis: Hypertensive heart disease with heart failure[ICD10: I11.0][facility] Tbqvrc[address] [place] [address] 62372NRG- 4: [id number] VISIT EST PATIENT Diagnosis: Mixed incontinence[ICD10: N39.46] Diagnosis: Type 2 diabetes mellitus without complications[ICD10: E11.9] Diagnosis: Hypothyroidism, unspecified[ICD10: E03.9] Diagnosis: Hyperlipidemia, unspecified[ICD10: E78.5] Diagnosis: Apnea, not elsewhere classified[ICD10: R06.81] Diagnosis: Essential (primary) hypertension[ICD10: I10] Diagnosis: Encounter for screening, unspecified[ICD10: Z13.9] Diagnosis: Encounter for immunization[ICD10: Z23]Charlene Rivera Office [address] [place] [address] 00723WVD-1: [id number] (IND) Independent Lab Draw Diagnosis: Patient Not Seen[ICD10: UXZ.01]Tejada [facility] Mxvbgd[address] [place] [address] 19939CPQ-7: IND04/27/2019HOME VISIT EST PATIENT Diagnosis: Hypertensive heart disease with heart failure[ICD10: I11.0] Diagnosis: Unspecified asthma, uncomplicated[ICD10: J45.909] Diagnosis: Type 2 diabetes mellitus without complications[ICD10: E11.9] Diagnosis: Encounter for immunization[ICD10: Z23] Diagnosis: Encounter for screening for malignant neoplasm of cervix[ICD10: Z12.4]Charlene Rivera Zpagun[address] [place] [address] 91044VDU-7: [id number]/HOME VISIT EST PATIENT Diagnosis: Unspecified asthma, uncomplicated[ICD10: J45.909] Diagnosis: Apnea, not elsewhere classified[ICD10: R06.81] Diagnosis: Body mass index (BMI) 50-59.9 , adult[ICD10: Z68.43] Diagnosis: Essential (primary) hypertension[ICD10: I10] Diagnosis: Chest pain, unspecified[ICD10: R07.9] Diagnosis: Encounter for preprocedural cardiovascular examination[ICD10: Z01.810]Rasta Sesay U[address] [place] [address] 00932UYA-9: [id number] VISIT EST PATIENT Diagnosis: Apnea, not elsewhere classified[ICD10: R06.81] Diagnosis: Body mass index (BMI) 50-59.9 , adult[ICD10: Z68.43]Rasta Tejada Oxqwyd[address] [place] [address] 00200UFR-7: [id number]/HOME VISIT EST PATIENT Diagnosis: Apnea, not elsewhere classified[ICD10: R06.81] Diagnosis: Essential (primary) hypertension[ICD10: I10] Diagnosis: Type 2 diabetes mellitus without complications[ICD10: E11.9] Diagnosis: Unspecified asthma, uncomplicated[ICD10: J45.909] Diagnosis: Wheezing[ICD10: R06.2]Rasta Bridges Ysihtu[address] [place] [address] 40739WZA-5: [id number] VISIT EST PATIENT Diagnosis: Type 2 diabetes mellitus without complications[ICD10: E11.9] Diagnosis: Essential (primary) hypertension[ICD10: I10] Diagnosis: Unspecified asthma, uncomplicated[ICD10: J45.909] Diagnosis: Edema, unspecified[ICD10: R60.9] Diagnosis: Hypothyroidism, unspecified[ICD10: E03.9] Diagnosis: Abnormal electrocardiogram [ECG] [EKG][ICD10: R94.31]Rasta Sesay [place] 2893730 CPT-4: [id number]/HOME VISIT EST PATIENT Diagnosis: Type 2 diabetes mellitus without complications[ICD10: E11.9] Diagnosis: Essential (primary) hypertension[ICD10: I10] Diagnosis: Unspecified asthma, uncomplicated[ICD10: J45.909] Diagnosis: Wheezing[ICD10: R06.2] Diagnosis: Chest pain, unspecified[ICD10: R07.9] Diagnosis: Abnormal electrocardiogram [ECG] [EKG][ICD10: R94.31] Diagnosis: Adjustment disorder with mixed anxiety and depressed mood[ICD10: F43.23] Diagnosis: Post-traumatic stress disorder, unspecified[ICD10: F43.10][place] [address] CPT-4: [id number]/HOME VISIT EST PATIENT Diagnosis: Type 2 diabetes mellitus without complications[ICD10: E11.9] Diagnosis: Essential (primary) hypertension[ICD10: I10] Diagnosis: Chronic kidney disease, unspecified[ICD10: N18.9] Diagnosis: Headache[ICD10: R51]Rasta Clemencia[address] 062[address]XHO-3: [id number] VISIT EST PATIENT Diagnosis: Type 2 diabetes mellitus without complications[ICD10: E11.9] Diagnosis: Essential (primary) hypertension[ICD10: I10] Diagnosis: Chronic kidney disease, unspecified[ICD10: N18.9] Diagnosis: Hypothyroidism, unspecified[ICD10: E03.9] Diagnosis: Encounter for screening, unspecified[ICD10: Z13.9] Diagnosis: Post-traumatic stress disorder, unspecified[ICD10: F43.10] Diagnosis: Adjustment disorder with mixed anxiety and depressed mood[ICD10: F43.23]Rasta Clemencia[address] [address]QEN-6: [id number] VISIT EST PATIENT Diagnosis: Adjustment disorder with mixed anxiety and depressed mood[ICD10: F43.23] Diagnosis: Post-traumatic stress disorder, unspecified[ICD10: F43.10] Diagnosis: Essential (primary) hypertension[ICD10: I10] Diagnosis: Unspecified asthma, uncomplicated[ICD10: J45.909] Diagnosis: Wheezing[ICD10: R06.2] Diagnosis: Type 2 diabetes mellitus without complications[ICD10: E11.9][place] [address] CPT-4: [id number] VISIT EST PATIENT Diagnosis: Adjustment disorder with mixed anxiety and depressed mood[ICD10: F43.23] Diagnosis: Post-traumatic stress disorder, unspecified[ICD10: F43.10] Diagnosis: Essential (primary) hypertension[ICD10: I10] Diagnosis: Unspecified asthma, uncomplicated[ICD10: J45.909] Diagnosis: Wheezing[ICD10: R06.2] Diagnosis: Type 2 diabetes mellitus without complications[ICD10: E11.9] Diagnosis: Edema, unspecified[ICD10: R60.9]Rasta Feldman[address] [address]JBJ-4: [id number] VISIT EST PATIENT Diagnosis: Post-traumatic stress disorder, unspecified[ICD10: F43.10] Diagnosis: Adjustment disorder with mixed anxiety and depressed mood[ICD10: F43.23] Diagnosis: Type 2 diabetes mellitus without complications[ICD10: E11.9] Diagnosis: Essential (primary) hypertension[ICD10: I10] Diagnosis: Unspecified asthma, uncomplicated[ICD10: J45.909] Diagnosis: Wheezing[ICD10: R06.2] Diagnosis: Edema, unspecified[ICD10: R60.9] Diagnosis: nursing home (current) use of non-steroidal anti-inflammatories (NSAID)[ICD10: Z79.1]Rasta Clemencia[address] [address]SSS-8: 6940416/09/2018HOME VISIT NEW PATIENT Diagnosis: Type 2 diabetes [...] (BMI) 50-59.9 , adult[ICD10: Z68.43]Rasta Marquezsenthilcurt Tejada W[address]fnr[address] [address]VUH-8: [phone] Plan of Care Planned Activity Notes Codes [...] to lose weight 11/09/2023ppointment: Anna Culver WPtel: [address] [place], [place] [id number] Education: YpqykbalKgzxpxalo86/07/2024Patient Education: Patient Medication RdmzvrdYynembkmd86/07/2024atient Education: Hypertension Dkgmyyclk51/07/2024atient Education: HdqglnmIivqeohcl35/07/2024Visit Plan:Visit time spent involved in medical discussion [...] negative for depression 10/21/2023ppointment: Anna Culver WPtel: [address] [place] [address] USETV10/21/2023atient Education: Patient Medication ZcrmgjuBqcrrvztc70/19/2024 Patient Education: EqfcygraAyuqirijy46/19/2024Visit Plan:Visit time spent involved in medical discussion with patient, including obtaining history from patient, systems review, diagnostic and laboratory test review with patient. Assessment findings and plan reviewed with patient, including time to provide counseling, and education to patient Send copy oflabs to Michell Matamoros [phone] E11.42-250.60 Type 2 diabetes mellitus with peripheral neuropathy Continues with varied blood sugars, elevations may be secondary to infectious process,continues with ozempic and januvia will check hgb a1c I11.9- 402.90 Hypertensive heart disease without heart failure stable with current medications, will order labs J06.9-465.9 Upper respiratory infection will send prescription for Amoxicillin to local pharmacy 09/20/2023ppointment: Anna Culver WPtel: [address] [place] [address] [id number] Education: Patient Medication LzhflznDjxfypngo42/19/2023 Patient Education: VamvlqlySzgotwefh05/19/2023atient Education: Hypertension Pbhuxxqqd46/19/2023atient Education: SvdepkjRbthcvyju87/19/2023atient Education: Patient Medication RoiqwmfZdacatlgg95/14/2023Visit Plan:Visit time spent involved in medical discussion [...] for review 08/05/2023ppointment: Anna Culver WPtel: [address] [place] [address] [id number] Education: HovytiqqHhdlikryp22/03/2023atient Education: ZnudhvemcmetKtxaoskou68/03/2023atient Education: AnpdkawRuqhmgnuv98/03/2023 Patient Education: Weight BaxpHiyzzjmuy46/03/2023atient Education: Patient Medication SipmjdnXkzkjjgnk31/03/2023are Plan: QOJEgrgcqp29/03/2023Visit Plan: Visit time spent involved in medical [...] weight loss) 06/24/2023ppointment: Anna Culver WPtel: [address] [place], [place] [phone] [id number] Education: PeiypubvjxpoWxmpocgcj22/22/2023atient Education: FknlcslsydMvcxgfpdy38/22/2023atient Education: Patient Medication IujbrmiMtkdaomkq71/22/2023atient Education: Weight TajgNfecdzedz86/22/2023 Patient Education: QkswgrcoOszgtkjyq62/22/2023atient Education: Obesity Mxdlzdauv01/22/2023atient Education: Patient Medication SummaryCompleted 06/03/2023atient Education: Patient Medication IqvxtsiUrylgdtpd93/27/2023Visit Plan:Visit time spent involved in medical discussion with patient, including obtaining history from patient, systems review, diagnostic and laboratory test review with patient. Assessment findings and plan reviewed with patient, including time to provide counseling, and education to patient I11.9-402.90 Hypertensive heart disease BP stable, no edema, will continue lisinopril, HCTZ continue with [employer] Josh Simon MD G47.33 Obstructive sleep apnea (adult), J45.909 Asthma breathing stable, continue utilization of Symbicort, albuterol via neb. or MDI q 4 hrs. prn dyspnea, tolerating CPAP for a few hours nightly continue with Director Of Brand Marketing Jose BOWMAN K21.9 GERD (gastroesophageal reflux disease) symptoms improved, will continue omeprazole to 40mg atHS, continue famotidine, probiotic E11.42 Type 2 diabetes mellitus with peripheral neuropathy, Z68.43 Adult BMI 50.0-59.9 kg/sq m testing BS bid, range 99-133 continue Ozempic 1mg per week and gabapentin continue with Kerrie Pandya OD at [facility] trying to be more active, has step goal of 4000 steps daily, also limiting soda intake G47.00-780.52 Insomnia F33.9-296.30 Major depression, recurrent started on trazodone 50mg by Nichole Hernández, psychology for sleep issues patient feels sleep and mood much improved with this medication continue taking sertraline, buspirone Rexulti continue with [facility] in [place] E78.2 Hyperlipidemia, mixed patient has re-started atorvastatin continue Mediterranean style eating E55.9 Vitamin D deficiency continue cholecalciferol refill sent 05/04/2023ppointment: Anna Culver WPtel: [address] [place], [place] [phone] [id number] Education: AwdgcckrCzeypwcaf25/02/2023atient Education: Patient Medication WvqlxbgUtymgyuci13/02/2023atient Education: Seizures Dpontgnnp79/02/2023atient Education: BihkumrhcotkDjpkzmzun12/02/2023atient Education: XgmrgrfXmbhmtsbi10/02/2023atient Education: Patient Medication OojxssvOisjewrhl46/29/2023Visit Plan:Visit time spent involved in medical discussion with patient, including obtaining history from patient, systems review, diagnostic and laboratory test review with patient. Assessment findings and plan reviewed with patient, including time to provide counseling, and education to patient I11.9-402.90Hypertensive heart disease BP stable, no edema, will continue lisinopril, HCTZ continue with [employer] Josh Simon MD G47.33 Obstructive sleep apnea (adult), J45.909 Asthma breathing stable, continue utilization of Symbicort, albuterol via neb. or MDI q 4 hrs. prn dyspnea, tolerating CPAP for a few hours nightly continue with Director Of Brand Marketing Jose BOWMAN K21.9 GERD (gastroesophageal reflux disease) symptoms improved, will continue omeprazole to 40mg atHS, continue famotidine, probiotic E11.42 Type 2 diabetes mellitus with peripheral neuropathy, Z68.43 Adult BMI 50.0-59.9 kg/sq m testing BS bid, range 99-133 continue Ozempic 1mg per week and gabapentin continue with Kerrie Pandya OD at [facility] trying to be more active, has step goal of 4000 steps daily, also limiting soda intake G47.00-780.52 Insomnia F33.9-296.30 Major depression, recurrent started on trazodone 50mg by Nichole Hernández, psychology for sleep issues patient feels sleep and mood much improved with this medication continue taking sertraline, buspirone Rexulti continue with [facility] in [place] E78.2 Hyperlipidemia, mixed patient has re-started atorvastatin continue Mediterranean style eating E55.9 Vitamin D deficiency continue cholecalciferol refill sent 01/27/2023ppointment: Anna Culver WPtel: [address] [place], [place] [phone] [id number] Education: Patient Medication XfkcyklLigxikcsn86/27/2023 Patient Education: DzjleqnsOexghqcmj03/27/2023atient Education: Hypertension Aqgjmjxoy74/27/2023atient Education: PghnwkfkgjGvrzufjzu87/27/2023atient Education: KumazgkRakueppft83/27/2023atient Education: Patient Medication FpvbqvcWzahpdyyh25/24/2023atient Education: Patient Medication SummaryCompleted 12/23/2022Visit Plan:Visit time [...] min. < 89% SpO2 continue with [employer] Josh Simon MD G47.33 Obstructive sleep apnea (adult), J45.909 Asthma breathing stable, continue utilization of Symbicort, albuterol via neb. or MDI q 4 hrs. prn dyspnea, CPAP use continues nightly continue with Director Of Brand Marketing Jose BOWMAN K21.9 GERD (gastroesophageal reflux disease) [...] at [facility] (06/30/21) F33.9-296.30 Major depression, recurrent 11/23/2021 PHQ 9 Score 0 continue taking sertraline, buspirone Rexulti continue with [facility] in [place] canceled visit this month, next December 2021 E78.2 Hyperlipidemia, mixed patient has re-started atorvastatin continue Mediterranean style eating E03.9 Hypothyroidism 06/23/2022 TSH 2.130, continue levothyroxine E55.9 Vitamin D deficiency continue cholecalciferol R55 Syncope and collapse, Z84.89 Family history of seizures [facility] with [facility] N39.46 Mixed incontinence, R33.9 Urinary retention with incomplete bladder emptying Z98.890-V45.89 History of bladder surgery continue Myrbetriq qd ongoing use of use of incontinence supplies 01/05/21 urinary stimulator implant continue with Urologist 11/23/2022ppointment: Anna Culver WPtel: [address] [place], [place] [phone] [id number] Education: CzleviohjzVgzabxbmy76/21/2023atient Education: LgtokemsOvhkcbpzz60/21/2023atient Education: Patient Medication EzgroxlAhisejwkl53/21/2023atient Education: YsbhefcmnmqgMpjlmcece63/21/2023 Patient Education: OnxpvbbRswxhnnfu55/21/2023Visit Plan:Visit time spent involved in medical discussion [...] min. < 89% SpO2 continue with [employer] Josh Simon MD will check labs this visit G47.33 Obstructive sleep apnea (adult), J45.909 Asthma breathing stable,continue utilization of Symbicort, albuterol via neb. or MDI q 4 hrs. prn dyspnea, CPAP use continues nightly continue with Director Of Brand Marketing Jose BOWMAN last visit 05/31/2022 E11.42 Type 2 diabetes mellitus with peripheral neuropathy, Z68.43 Adult BMI 50.0-59.9 kg/sq m stable glucose monitor - testing bid FBS 115, trying to get closer to 100 continue Ozempic 1mg per week and gabapentin 06/23/2022 Hgb A1C 5.8, GFR 94 continue with Kerrie Pandya OD at [facility] (06/30/21) note 3 pound weight gain, admits to eating more over the holidays, continues to be active and motivated to lose weight, encouraged to limit carbs will check labs this visit F33.9-296.30 Major depression, recurrent continue taking sertraline, buspirone Seroquel complete and has been replaced with Rexulti continue with [facility] in [place] will check labs this visit S61.202A-883.0 Open [...] qid prn arthralgia/myalgia 2022ppointment: Anna Culver WPtel: [address] [place], [place] [id number] Education: PfrnvwitfzzhTbcenuoqr32/18/2023atient Education: Patient Medication JupvulkWjoqwkypk62/18/2023atient Education: AqepqnpgSomqenurk77/18/2023atient Education: PpsewdxmafErahyizrh53/18/2023 Patient Education: AyikqjjNriabpbbo75/18/2023Visit Plan:I10 Essential (primary) hypertension, BP stable, will continue lisinopril, HCTZ 07/02/20 Echo: EF 60%, mild conc. LVH 05/14/20 EKG: NSR 05/14/20 Noct. Pulse Ox.: 7 min. < 89% SpO2 continue with [facility] [employer] Josh Simon MD G47.33 Obstructive sleep apnea (adult), J45.909 Asthma breathing stable CPAP use continues-was changed to nasal pillow mask at last pulmonogy visit, patient feels this has been helpful continue utilization of Symbicort, albuterol via neb. or MDI q 4 hrs. prn dyspnea, continue with Director Of Brand Marketing Jose BOWMAN last visit 05/31/2022-visit note reviewed previously E11.42 Type 2 diabetes mellitus with peripheralneuropathy, Z68.43 Adult BMI 50.0-59.9 kg/sq m stable glucose monitor range 99-143 - testing bid FBS 102 this morning continue Ozempic 1mg per week and gabapentin 06/23/2022 Hgb A1C 5.8, GFR 94 11/02/21 HgbA1C 5.6, GFR >100 continue with Kerrie Pandya OD at [facility] (06/30/21) Discussed benefits of weight loss [...] has been replaced with Rexulti continue with [facility] in [place] B36.9-111.9 Fungal infection of skin inner left [...] qid prn arthralgia/myalgia 08/17/2022ppointment: Anna Culver WPtel: [phone] [address] [id number]/17/2021atient Education: JjxmsohundwsRjffzlleu65/15/2022Patient Education: Patient Medication WstlusnXsbbclbkg24/15/2022atient Education: InjdglzoQzoybjxga37/15/2022atient Education: VaimhigBjdhfiyxb87/15/2022atient Education: VIS - Pneumo (23 Valent)Itasuixnf80/15/2022atient Education: Patient Medication HiaqvxlIgfghfxgm52/09/2022atient Education: Patient Medication AqvkmupEybavwcxm67/07/2022atient Education: Patient Medication SummaryCompleted 07/31/2022Visit Plan:I10 Essential (primary) hypertension, BP stable, will continue lisinopril, HCTZ 07/02/20 Echo: EF 60%, mild conc. LVH 05/14/20 EKG: NSR 05/14/20 Noct. Pulse Ox.: 7 min. < 89% SpO2 continue with [facility] [employer] Josh Simon MD will check labs this visit G47.33 Obstructive sleep apnea (adult), J45.909 Asthma breathing stable CPAP use continues-was changed to nasal pillow mask at last pulmonogy visit, patient feels this has been helpful continue utilization of Symbicort, albuterol via neb. or MDI q 4 hrs. prn dyspnea, continue with Director Of Brand Marketing Jose BOWMAN last visit 05/31/2022-visit note reviewed [...] has been replaced with Rexulti continue with [facility] in [place] Z28.21-V64.06 Influenza vaccine refused refused influenza vaccine, [...] continue with Urologist 06/23/2022ppointment: Anna Culver WPtel: [address] [place], [place] [address] [id number] Education: Weight NjglKmfmheqhf53/21/2022atient Education: GkhwhhrpWjaxcbtjz09/21/2022atient Education: Patient Medication MbcvjvmObvqowmbw25/21/2022atient Education: EuatddoljqsbBhuhcqtsa64/21/2022 Patient Education: Patient Medication UhqyuupSwmiluhwd64/22/2022Visit Plan: 04/21/2022atient Education: Patient Medication UxybmcvZpjrratxh49/20/2022Visit Plan:I10 Essential (primary) hypertension, BP within goal continue lisinopril, HCTZ 07/02/20 Echo: EF 60%, mild conc. LVH 05/14/20 EKG: NSR 05/14/20 Noct. Pulse Ox.: 7 min. < 89% SpO2 continue with [facility] [employer] Josh Simon MD E11.42 Type 2 diabetes mellitus with peripheral neuropathy, Z68.43 Adult BMI 50.0-59.9 kg/sq m glucose controlled, however body weight remains an issue glucose monitor averaging 100s-130s - bid increase Ozempic to maximum: 1mg per week, continue gabapentin 11/02/21 HgbA1C 5.6, GFR >100 continue with Kerrie Pandya OD at [facility] (06/30/21) encouraged to increase daily step [...] weight loss continue with Marian Obrien in [place] Below historical items not addressed this visit: Z00.00-V70.9 (Z00.00-V70.9) Encounter for general adult medical examination without abnormal findings 02/11/22 AWV complete G47.33 Obstructive sleep apnea (adult), J45.909 Asthma breathing stable CPAP use encouraged but pt seems uncertain of benefit continue utilization of Symbicort, albuterol via neb. or MDI q 4 hrs. prn dyspnea, continue with Director Of Brand Marketing Jose BOWMAN E03.9 Hypothyroidism continue levothyroxine 11/02/21 [...] continue with Urologist 04/19/2022ppointment: Chivo Bishop WPtel: [phone] [address] [id number] Education: AjahluuvLmdaxeebx90/18/2022atient Education: Patient Medication PxrucihEwsixjglu56/18/2022atient Education: Weight Gain Urazlzznr20/18/2022ppointment: Chivo Bishop WPtel: [address] [place], [place] [id number] Education: Patient Medication LavkqwsYomwyiybe43/12/2022 Patient Education: RiorcuwkXqytzwmhz19/12/2022atient Education: AWV Preventative Screening Schedule 8995Vcpoezftw65/12/2022ati Education: [employer] Patient Savings HuguuniEgzuosouu40/12/2022atient Education: Patient Medication EvawqdmImpyraagx81/07/2022atient Education: Patient Medication ZjkzsmuUzbhsrbye67/04/2022Visit Plan:The following plan consists of chronic conditions [...] min. < 89% SpO2 continue with [facility] Josh Simon MD E11.42 Type 2 diabetes mellitus with peripheral neuropathy, Z68.43 Adult BMI 50.0-59.9 kg/sq m glucose monitor 100s-120s - bid Ozempic 0.5mg per week, gabapentin 11/02/21 HgbA1C 5.6, GFR >100 continue with Kerrie Pandya OD at [facility] (06/30/21) encourage to continue with Dr. [...] recheck of Noct. Pulse. Ox continue with Director Of Brand Marketing Jose BOWMAN E03.9 Hypothyroidism continue levothyroxine 11/02/21 [...] mood continue taking sertraline, buspirone continue with [facility] in [place] N39.46 Mixed incontinence, R33.9 Urinary retention with incomplete bladder emptying Z98.890-V45.89 History of bladder surgery Myrbetriq qd use of incontinence supplies 01/05/21 urinary stimulator implant - symptoms improved, urinating ~ 5 times per day continue with Urologist J30.9 Allergic rhinitis cetirizine, montelukast 12/03/2021ppointment: Mikey Nair WPtel: [id number] [id number] Education: Patient Medication MelkzkoGkjzfzwtc68/03/2022 Patient Education: DzobkorfZypbpzafc58/03/2022atient Education: Hypertension Ckwyooose02/03/2022atient Education: FmctdanAivqsknnc27/03/2022are Plan: Specialty Diagnostic NfuqeJuheywf21/03/2022are Plan: Overnight Pulse oxOrdered 12/03/2021ppointment: Chivo Bishop WPtel: [phone] [address] [id number] Education: Patient Medication OfflubtIlstwscxq87/31/2022 Patient Education: ReqyozhzNyjjeyboa80/31/2022Visit Plan:R19.7-787.91 Diarrhea has resolved following change from [...] or worsening symptoms 10/07/2021ppointment: Chivo Bishop WPtel: [address] [place] [address] [id number] Education: Patient Medication PfjcuumCrorqabnl13/05/2022 Patient Education: Weight ZneeRvvejswmm51/05/2022atient Education: Patient Medication MlzspveTjgenafxd50/10/2021are Plan: External Laboratory TestsOrdered 09/11/2021ppointment: Chivo Bishop WPtel: [address] [place] [address] [id number] Education: Patient Medication GvhcgwhHyxslslmh85/09/2021 Visit Plan:Video and audio call using Contactual R16.7-649.43 Diarrhea intermittent symptoms over the past few [...] to this medication uses monitor Pablo through [employer]-participant of [employer] 05/20/2021 [...] previously discussed stress management routine follow up [place] at [place] 03/13/2021 PHQ 9 Score 4 Sertraline 200mg daily 04/01/2021 Functional Assessment independent with ADLs R63.0-783.0 Anorexia consuming 1 -2 meals per day advised to continue to try small, more frequent food intake, discussed limiting carbonated beverages d iscussed benefits of [place] [employer] not using note weight has [...] cervix most recent pap in June 2020-[facility] Chief Of Staff Doctor-reports pap negative Z01.89-V72.85 Encounter for screening for tobacco use 03/13/2021 Tobacco screen complete-patient denies ever smoking Z12.31-V76.12 (Z12.31-V76.12) Encounter for screening mammogram for malignant neoplasm of breast Z12.11-V76.51 (Z12.11-V76.51) Encounter for screening for malignant neoplasm of colon Preventative testing not indicated due to age *I reviewed the most recent CDC guidelines regarding Covid-19/Coronavirus with the patient/caregiver/designee 08/13/2021ppointment: Chivo Bishop WPtel: [phone] [address] USETV110/13/2020atient Education: Patient Medication ClsgllgYaayzvrsq89/11/2021 Patient Education: [employer] Premier Savings RoihKivlejxgv06/11/2021 Patient Education: levothyroxine- [employer] Coupon [id number] https://[email or web address]/samplemd/resources/getResource/61/[email or web address]-[email or web address]-m9 [email or web address].vmpJvuxhxjkb98/11/2021Visit Plan:Video and audio call using Contactual U07.1-079.89 COVID-19 virus RNA test result positive [...] to this medication uses monitor [employer]el through [place]-participant of [employer] 05/20/2021 Hemoglobin A1C 5.4 stable 10/17/2019 [place] 7/10-instructed on good daily foot care [...] previously discussed stress management routine follow up [place] at [place] 03/13/2021 PHQ 9 Score 4 Sertraline 200mg daily 04/01/2021 Functional Assessment independent with ADLs R63.0-783.0 Anorexia consuming 1 -2 meals per day advised to continue to try small, more frequent food intake, discussed limiting carbonated beverages as this may make her feel full taking away appetite discussed benefits of [place] [employer] not using note weight has [...] appt for pap in June 2020-[facility] Chief Of Staff Doctor-reports pap negative Z01.89-V72.85 Encounter for screening for tobaccouse 03/13/2021 Tobacco screen complete-patient denies ever smoking Z12.31-V76.12 (Z12.31-V76.12) Encounter for screening mammogram for malignant neoplasm of breast Z12.11-V76.51 (Z12.11-V76.51) Encounter for screening for malignant neoplasm of colon Preventative testing not indicated due to age *I reviewed the most recent CDC guidelines regarding Covid-19/Coronavirus with the patient/caregiver/designee 07/06/2021ppointment: Chivo Bishop WPtel: [address] [place], [place] [address] [id number] Education: Patient Medication YwulttwCgxzcthxn48/04/2021 Visit Plan:Video and audio call using Contactual U09.7-616.88 COVID-19 virus RNA test result positive at [...] this medication received new monitor Pablo through [place]-participant of [place] on [employer] - 05/20/2021 Hemoglobin A1C 5.4 [...] diabetes mellitus labs to be drawn at [facility] neurology - has appt 06/09/2021 advised to notify office for persistent or worsening symptoms F43.23-309.28 Adjustment disorder with mixed anxiety and depressed mood reviewed previously discussed stress management routine follow up [place] 03/13/2021 PHQ 9 Score 4 Sertraline 200mg daily 04/01/2021 Functional Assessment independent with ADLs R63.0-783.0 Anorexia symptoms persistent advised to continue to try small, more frequent food intake, discussed limiting carbonated beverages as this may make her feel full taking away appetite discussed benefits of [place] [employer] not using note weight has remained stable over the past couple months-will continue to monitor I10-401.9 Essential (primary) hypertension I11.0-402.91 Hypertensive heart disease with heart failure cont hctz and lisinipril 04/01/2021 HTN assessment complete discussed lifestyle modification including weight loss and limiting sodium intake 05/20/2021 GFR >60 [place] lab didn't provide exact number 05/14/2020 EKG [...] appt for pap in June 2020-[facility] Chief Of Staff Doctor-reports pap negative Z01.89-V72.85 Encounter for screening for tobaccouse 03/13/2021 Tobacco screen complete-patient denies ever smoking Z12.31-V76.12 (Z12.31-V76.12) Encounter for screening mammogram for malignant neoplasm of breast Z12.11-V76.51 (Z12.11-V76.51) Encounter for screening for malignant neoplasm of colon Preventative testing not indicated due to age *I reviewed the most recent CDC guidelines regarding Covid-19/Coronavirus with the patient/caregiver/designee 06/10/2021ppointment: Chivo Bishop WPtel: [address] [place], [place] [address] XOLFUB7906/10/2021atient Education: Patient Medication IosyantRpoofdtam70/08/2021 Patient Education: YdpekkedZhasrdvwn63/08/2021Visit Plan:Video and audio call using Contactual J06.9-692.9 Upper respiratory infection prescription for sudafed sent [...] adjustments to this medication received new monitor [employer] through [employer]-participantof [place] on demand - 05/20/2021 Hemoglobin A1C 5.4 stable 10/17/2019 [place] 7/10-instructed on good daily foot care [...] to be drawn at [facility] - has appt 06/09/2021 advised to notify office for persistent or worsening symptoms F43.23-309.28 Adjustment disorder with mixed anxiety and depressed mood reviewed previously discussed stress management routine follow up [place] 03/13/2021 PHQ 9 Score 4 Sertraline 200mg daily 04/01/2021 Functional Assessment independent with ADLs R63.0-783.0 Anorexia symptoms persistent advised to continue to try small, more frequent food intake, discussed limiting carbonated beverages as this may make her feel full taking away appetite discussed benefits of [place] [employer] not using note weight has remained stable over the past couple months-will continue to monitor I10-401.9 Essential (primary) hypertension I11.0-402.91 Hypertensive heart disease with heart failure cont hctz and lisinipril 04/01/2021 HTN assessment complete discussed lifestyle modification including weight loss and limiting sodium intake 05/20/2021 GFR >60 [place] lab didn't provide exact number 05/14/2020 EKG [...] fat, fried foods discussed benefits of increased ydujcgzgX67.46-788.33 Mixed incontinence use of incontinence supplies R55-780.2 [...] appt for pap in June 2020-[facility] Chief Of Staff Doctor-reports pap negative-records requested Z01.89-V72.85 Encounter for screening for tobacco use 03/13/2021 Tobacco screen complete- patient denies ever smoking Z12.31-V76.12 (Z12.31-V76.12) Encounter for screening mammogram for malignant neoplasm of breast Z12.11-V76.51(Z12.11- V76.51) Encounter for screening for malignant neoplasm of colon Preventative testing not indicated due to age *I reviewed the most recent CDC guidelines regarding Covid-19/Coronavirus with the patient/caregiver/designee 06/02/2021ppointment: Anna Culver WPtel: [phone] [address] USETV1Patient Education: Patient Medication CzipmxmTbvbxfavd58/31/2021 Patient Education: LmtryxtyRelxjtjgj95/31/2021Patient Education: Dizziness Yjeqprgbs82/31/2021Visit Plan:R55780.2 Syncope and collapse Z84.89-V19.8 Family history of seizures remains a concern over the past month, can't confirm, but feels she is having seizure activity, does have family hx of seizures discussed possible causes otherthan seizure such as stress, cardiac, diabetes mellitus labs to be drawn at [facility] referred to neurology previously - has upcoming visit 05/24/21 advised to notify office for persistent or worsening symptoms F43.23-309.28 Adjustment disorder with mixed anxiety and depressed mood discussedstress management routine follow up [place] 03/13/2021 PHQ 9 Score 4 Sertraline 200mg daily 04/01/2021 Functional Assessment independent with ADLs R63.0-783.0 Anorexia symptoms persistentadvised to continue to try small, more frequent food intake, discussed limiting carbonated beverages as this may make her feel full taking away appetite discussed benefits of [place] [employer] not using note weight has remained stable over the past couple months-will continue to monitorlabs performed recently at [facility]- results requested 05/20/21 E11.42-250.60 Type 2 [...] this medication received new monitor [employer]el through [place]-participant of [employer] - 01/29/2021 Hgb [...] will order labs to be drawn at [facility] E78.5-272.4 Hyperlipidemia, unspecified 01/29/2021 alkaline phos 228 AST 40 ALT 157 plan d/c atorvastatin and recheck labs at next home visit, may need to start another medication for ongoing hyperlipidemia avoid high fat, fried foods discussed benefits of increased njwemvjxC45.46-788.33 Mixed incontinence use of incontinence supplies R55-780.2 [...] new appt for pap in June 2020-[facility]-reports pap negative-records requested Z01.89-V72.85 Encounter for screening for tobacco use 03/13/2021 Tobacco screen complete- patient denies ever smoking Z12.31-V76.12 (Z12.31-V76.12) Encounter for screening mammogram for malignant neoplasm of breast Z12.11-V76.51(Z12.11- V76.51) Encounter for screening for malignant neoplasm of colon Preventative testing not indicated due to age *I reviewed the most recent CDC guidelines regarding Covid-19/Coronavirus with the patient/caregiver/designee 05/20/2021ppointment: Chivo Bishop WPtel: [address] [place] [address] USETV05/20/2021atient Education: Patient Medication DpunaneUvsadpqje54/18/2021 Patient Education: TpjhraqsGcsbqqezw22/18/2021atient Education: Dizziness Oowwdoibc70/18/2021ppointment: Anna Culver WPtel: [address] [place] [address] USETV04/28/2021atient Education: Patient Medication OipfelbLmkzcddmp81/27/2021 Patient Education: MfxlnugsGlqkrtbbi09/27/2021are Plan: Domiciliary/Facility LazwxokocwwzrWlogufp99/27/2021Visit Plan:F43.23-309.28 Adjustment disorder with mixed anxiety and depressed mood patient having increased stress leading to teeth clenching and zoning out for short periods discussed stress management routine follow up [place] [facility] [place] 03/13/2021 PHQ 9 Score 4 Sertraline increased to 200mg daily 04/01/2021 Functional Assessment independent with ADLs R63.0-783.0 Anorexia symptoms persistent advised tocontinue to try small, more frequent food intake, discussed limiting carbonated beverages as this may make her feel full taking away appetite discussed benefits of [place] [employer] not using note weight has [...] fat, fried foods discussed benefits of increased smptkuwmW36.46-788.33 Mixed incontinence use of incontinence supplies R55-780.2 [...] appt for pap in June 2020-[facility] Chief Of Staff Doctor-reports pap negative-records requested Z01.89-V72.85 E ncounter for screening for tobacco use 03/13/2021 Tobacco screen complete-patient denies ever smoking Z12.31-V76.12 (Z12.31-V76.12) Encounter for screening mammogram for malignant neoplasm of breast Z12.11-V76.51 (Z12.11-V76.51) Encounter for screening for malignant neoplasm of colon Preventative testing not indicated due to age *I reviewed the most recent CDC guidelines regarding Covid-19/Coronavirus with the patient/caregiver/designee 04/15/2021ppointment: Chivo Bishop WPtel: [phone] [address] USETV1Patient Education: Patient Medication TkbqcpkMjrnsmpve83/14/2021 Visit Plan:R63.0-783.0 Anorexia symptoms persistent advised to continue to try small, more frequent food intake, discussed limiting carbonated beverages as this may make her feel full taking away appetite discussed benefits of [place] [employer] not using note weight has [...] this medication received new monitor [employer]el through [place]-participant of [place] on demand - 01/29/2021 Hgb A1C 5.3 [...] anxiety and depressed mood routine follow up [place] [facility] [place] 03/13/2021 PHQ 9 Score 4 Sertraline increased [...] appt for pap in June 2020-[facility] Chief Of Staff Doctor-reports pap negative-records requested Z01.89-V72.85 Encounter for screening for tobacco use 03/13/2021 Tobacco screen complete- patient denies ever smoking Z12.31-V76.12 (Z12.31-V76.12) Encounter for screening mammogram for malignant neoplasm of breast Z12.11-V76.51 (Z12.11- V76.51) Encounter for screening for malignant neoplasm of colon Preventative testing not indicated due to age *I reviewed the most recent CDC guidelines regarding Covid-19/Coronavirus with the patient/caregiver/designee 04/01/2021ppointment: Anna Culver WPtel: [address] [place], [place] [address] [id number] Education: Patient Medication FgpdovkSnlusktzc97/30/2021 Patient Education: CikeyapnKluxwhrtt42/30/2021Visit Plan:Video and audio call using Contactual T14.8XXA-819.2 Blister 3 wounds left 3rd digit secondary [...] full taking away appetite discussed benefits of [place] [employer]. note weighthas remained stable over [...] anxiety and depressed mood routine follow up [place] [facility] [place] 03/13/2021 PHQ 9 Score 4 Sertraline increased [...] appt for pap in June 2020-[facility] Chief Of Staff Doctor-reports pap negative-records requested Z01.89-V72.85 Encounter for screening for tobacco use 03/13/2021 Tobacco screen complete- patient denies ever smoking Z12.31-V76.12 (Z12.31-V76.12) Encounter for screening mammogram for malignant neoplasm of breast Z12.11-V76.51 (Z12.11- V76.51) Encounter for screening for malignant neoplasm of colon Preventative testing not indicated due to age *I reviewed the most recent CDC guidelines regarding Covid-19/Coronavirus with the patient/caregiver/designee 03/24/2021ppointment: Anna Culver WPtel: [phone] [facility] [address] [place], [place] [id number] USETV03/24/2021atient Education: SqailbazMvmjkonqg06/22/2021atient Education: Patient Medication HevhbjfRgcxhsbyv43/22/2021Visit Plan:Video and audio call using Contactual R63.0-783.0 Anorexia symptoms improving, but persist in the morn ing encouraged to keep food diary for a couple weeks, will review at next visit advised to continueto try small, more frequent food intake, discussed limiting carbonated beverages as this may make her feel full taking away appetite discussed benefits of [place] [employer]. note weight has remained stable [...] received new monitor [employer] through [place]-participant of [place] on demand - 01/29/2021 Hgb A1C 5.3 10/17/2019 [place] 04/11- instructed on good daily foot [...] anxiety and depressed mood routine follow up [place] [facility] [place] 03/13/2021 PHQ 9 Score 4 Sertraline increased [...] new appt for pap in June 2020-[facility] Doctor-reports pap negative-records requested Z01.89- V72.85 Encounter for screening for tobacco use 03/13/2021 Tobacco screen complete-patient denies ever smoking Z12.31-V76.12 (Z12.31-V76.12) Encounter for screening mammogram for malignant neoplasm of breast Z12.11-V76.51 (Z12.11- V76.51) Encounter for screening for malignant neoplasm of colon Preventative testing not indicated due to age *Ireviewed the most recent CDC guidelines regarding Covid-19/Coronavirus with the patient/caregiver/designee 03/13/2021ppointment: Anna Culver WPtel: [address] [place], [place] [address] USETV03/13/2021atient Education: Patient Medication NzzqsuqZprnltrfz23/11/2021 Patient Education: KvmdzhblSfjosfqfq42/11/2021Visit Plan:Labs ordered last visit reviewed with patient R63.0-783.0 Anorexia symptoms improving, but persist in the morning encouraged to keep food diary for a couple weeks, will review at next visit advised to continue to try small, more frequent food intake, discussed limiting carbonated beverages as this may make her feel full taking away appetite discussed benefits of [place] [employer]. note weight has remained stable [...] demand - 01/29/2021 Hgb A1C 5.3 10/17/2019 [place] 7/10-instructed on good daily foot care [...] anxiety and depressed mood routine follow up [place] [facility] [place] 08/19/2020 PHQ 9 Scoere 1, admits to [...] appt for pap in June 2020-[facility] Chief Of Staff Doctor-reports pap negative-records requested Z01.89- V72.85 Encounter for screening for tobacco use 12/31/2020 Tobacco screen complete-patient denies ever smoking Z12.31-V76.12 (Z12.31-V76.12) Encounter for screening mammogram for malignant neoplasm of breast Z12.11-V76.51 (Z12.11- V76.51) Encounter for screening for malignant neoplasm of colon Preventative testing not indicated due to age *Ireviewed the most recent CDC guidelines regarding Covid-19/Coronavirus with the patient/caregiver/designee 02/11/2021ppointment: Anna Culver WPtel: [phone] [place] [address] [id number] Education: Patient Medication YwpcikrVjfzyapju16/12/2021 Patient Education: ZvmfeayQvcjftwjn52/12/2021atient Education: Diabetes Xicbctzjy62/12/2021ppointment: Chivo Bishop WPtel: [address] [address] [id number] Education: Patient Medication TctonuwKeddsnvhu43/29/2021 Patient Education: EgrelrupWvciuxzqc37/29/2021Visit Plan:R63.0-783.0 Anorexia Ongoing lack of appetite for solid foods for several weeks, denies difficulties managing fluids-drank entire bottle of carbonated water during visit advised to continue to try small, more frequent food intake, discussed limiting carbonated beverages as this may make her feel full taking away appetite discussed benefits of [place] [employer]. note weight remain relatively stable over the past couple months-will continue to monitor E11.42-250.60 Type 2 diabetes mellitus with peripheral neuropathy ranging 103-126, Metformin 1000mg BID - received new monitor Harshil Mann-participant of [employer] - 10/29/2020 hgb A1C 5.6 10/17/2019 Inocente Soares7/10-instructed on good daily foot care routine [...] anxiety and depressed mood routine follow up [facility] 08/19/2020 PHQ 9 Scoere 1, admits to [...] appt for pap in June 2020-[facility] Chief Of Staff Doctor- reports pap negative-records requested Z01.89-V72.85 Encounter for screening for tobacco use 12/31/2020 Tobacco screen complete-patient denies ever smoking Z12.31-V76.12 (Z12.31-V76.12) Encounter for screening mammogram for malignant neoplasm of breast Z12.11-V76.51 (Z12.11-V76.51) Encounter for screening for malignant neoplasm of colon Preventative testing not indicated due toage *I reviewed the most recent CDC guidelines regarding Covid-19/Coronavirus with the patient/caregiver/designee 01/13/2021ppointment: Anna Culver WPtel: [address] USETV01/13/2021atient Education: Patient Medication PftqpsdXwkexjmbj00/13/2021 Patient Education: ItixthggXmraxinvn81/13/2021atient Education: Hypertension Ximgoeenc64/13/2021Visit Plan:R63.0-783.0 Anorexia Ongoing lack of appetite for solid foods for several weeks, denies difficulties managing fluids-drank entire bottle of carbonated water during visit advised to continue to try small, more frequent food intake, discussed limiting carbonated beverages as this may make her feel full taking away appetite discussed benefits of [place] [employer]. note weight remain relatively stable over the past couple months-will continue to monitor E11.42-250.60 Type 2 diabetes mellitus with peripheral neuropathy testing BID and PRN if feeling symptomatic hasn't been testing since right wrist surgery (right side dominant) patient reports feeling symptomatic for BS >100, ranging 103-126, believes elevation may be result lof snack Metformin 1000mg BID - received new monitor [employer] through [employer]-participant of [employer] - 10/29/2020 hgb A1C 5.6 10/17/2019 [place] Fany 7/10- instructed on good daily foot [...] anxiety and depressed mood routine follow up [facility] 08/19/2020 PHQ 9 Scoere 1, admits to [...] appt for pap in June 2020-[facility] Chief Of Staff Doctor-reports pap negative-records requested Z01.89-V72.85 Encounter for screening for tobacco use Tobacco screen complete-patient denies ever smoking Z12.31-V76.12 (Z12.31-V76.12) Encounter for screening mammogram for malignant neoplasm of breast Z12.11-V76.51 (Z12.11- V76.51) Encounter for screening for malignant neoplasm of colon Preventative testing not indicated due to age *I reviewed the most recent CDC guidelines regarding Covid-19/Coronavirus with the patient/caregiver/designee 12/17/2020ppointment: Anna Culver WPtel: [address] [place], [place] [address] [id number] Education: Patient Medication PezxsgzXickukhqe60/17/2021 Patient Education: WxpglnobglaqBuxbcrubc70/17/2021Patient Education: Diabetes Gkekwuxxs69/17/2021Visit Plan:patient with access to I phone able to participate in visual and audio telehealth visit T23.191D-V58.89 Superficial burn of multiple sites of right hand, subsequent encounter Reviewed ER notes from [facility] 11/26/20 Superfical burn among dorsal side of [...] BID - received new monitor [employer] through [employer]-participant of [employer] - 10/29/2020 hgb A1C 5.6 2019 [place] Fany 7/10-instructed on good daily foot care [...] anxiety and depressed mood routine follow up [facility] [place] 08/19/2020 PHQ 9 Scoere 1, admits to [...] to right wrist- Dr. Tee Shahid, hand medical reception specialist, outpatient surgery 10/09/2019 for arthoscopic exam [...] appt for pap in June 2020-[facility] Chief Of Staff Doctor-reportspap negative-records requested Z01.89- V72.85 Encounter for screening [...] all above topics. 1Appointment: Chivo Bishop WPtel: [address] [place], [place] [address] [id number] Education: Patient Medication IuamnbkLlrybchzm32/26/2021 Visit Plan:patient with access to I phone able to participate in visual and audio telehealth visit E11.36-218.60 Type 2 diabetes mellitus with peripheral neuropathy testing BID and PRN if feeling symptomatic hasn't been testing since right wrist surgery (right side dominant) patient reports feeling symptomatic for BS >100, ranging 100-118, RBS per patient 104, denies symptomatic Metformin 1000mg BID - received new monitor [employer] through [employer]-participant of [employer] -will send all diabetic supplies [...] anxiety and depressed mood routine follow up [facility] [place] 08/19/2020 PHQ 9 Scoere 1, admits to [...] to right wrist- Dr. Tee Shahid, hand medical reception specialist, outpatient surgery 10/09/2019 for arthoscopic exam [...] appt for pap in June 2020-[facility] Chief Of Staff Doctor-reportspap negative-records requested Z01.89- V72.85 Encounter for screening [...] all above topics. 11/24/2020ppointment: Anna Culver WPtel: [address] [place] [address] USETV11/24/2020atient Education: Patient Medication NefssnqKinoqofus72/22/2021 Patient Education: GyzuolkrElwsumgun55/22/2021atient Education: Hypertension Fejbhfwzy07/22/2021ppointment: Anna Culver WPtel: [address] [address] [id number] Education: Patient Medication SuxwlisNjoinbrcm53/27/2021 Patient Education: LjhizvbtnzmrIcykmiptg22/27/2021atient Education: Diabetes Ufuqrmrxs06/27/2021atient Education: Patient Medication SummaryCompleted 1Patient Education: Patient Medication YxiayphLkzvgcjcr32/30/2020Visit Plan:R82.90-791.9 Abnormal urine finding UA dipstick +leukocytes and trace non hemolyzed blood, will send urine for UA reflex to molecular M25.531-719.43 Right wrist pain routine follow up with Dr Watson-orthopedics last appt 07/14/2020 quit outpatient PT as didn't feel it was helpful MRI with contrast per orthopedics completed 06/30/2020- per patiet revealed torn ligament to right wrist-record requested Dr. Tee Shahid, hand medical reception specialist, outpatient surgery planned 10/09/2019 E11.42-250.60 Type 2 diabetes mellitus with peripheral neuropathy testing BID and PRN if feeling symptomatic 89-105, patient reports feeling symptomatic for BS >100, RBS 103 Metformin 1000mg BID - received new monitor [employer] through [place]-participant of [place] [employer] -will send all diabetic supplies to patient 04/14/2020 hemoglobin 5.6 10/17/2019 Hemoglobin A1C 6.0 07/04/2019 Hgb A1C 5.6 10/17/2019 [place] Fany 710-instructed on good daily foot care [...] anxiety and depressed mood routine follow up [facility] [place] 08/19/2020 PHQ 9 Scoere 1, admits to [...] appt for pap in June 2020- [facility] Chief Of Staff Doctor-reports pap negative-records requested Z01.89-V72.85 Encounter for screening [...] all above topics. 09/24/2020Appointment: Anna Culver WPtel: [address] [place], [place] [address] [id number]/25/2019Patient Education: Patient Medication CsckbekNnctlicph25/23/2020 Patient Education: ZiehlrzDptipvnhq57/23/2020Visit Plan:M25.531-719.43 Right wrist pain routine follow up with Dr Watson-orthopedics last appt 07/14/2020-rec ord requested quit outpatient PT as didn't feel it was helpful MRI with contrast per orthopedics completed 06/30/2020- per patiet revealed torn ligament to right wrist-record requested in process of being referred to hand medical reception specialist-will send information when available E11.42-250.60 Type [...] anxiety and depressed mood routine follow up [facility] [place] 08/19/2020 PHQ 9 Scoere 1, admits to [...] feeling light headed Z13.9-V82.9 Encounter for screening, mixaauviecb98/6/2020 Maltreatment assessment complete- patient denies any form of abuse or neglect Z68.43-V85.43 Adult BMI 50.0-59.9 kg/sq continues to loose weight trying to avoid soda, drinking sparkling flavor ed pal and occasional Heike Green Tea and honey Z12.4-V76.2 Encounter for screening for malignant neoplasm of cervix last pap January 2019 new appt for pap in June 2020-[facility] Chief Of Staff Doctor-reports pap negative-records requested Z01.89- V72.85 Encounter for [...] above topics. 08/26/2020Appointment: Anna Culver WPtel: [address] USETV110/26/2019Patient Education: Patient Medication JrlsmvxIndnzzkqz58/24/2020 Patient Education: OasngyavfbiiXrkbtksro66/24/2020Patient Education: Diabetes Jcfnwqoqu85/24/2020Visit Plan:M25.531-719.43 Right wrist pain routine follow up with Dr Watson-orthopedics last appt 07/14/2020-record requested quit outpatient PT as didn't feel it was helpful MRI with contrast per orthopedics completed 06/30/2020- per patiet revealed torn ligament to right wrist-record requested in process of being referred to hand medical reception specialist-will send information when available E11.42-250.60 Type 2 diabetes mellitus with peripheral neuropathy testing BID and PRN if feeling symptomatic 125-132 patient reports feeling symptomatic for BS >100, Metformin increased to 1000mg BID received new monitor [employer] through [employer]-participant of [employer] -will send all diabetic supplies to patient 04/14/2020 hemoglobin 5.6 10/17/2019 Hemoglobin A1C 6.0 07/04/2019 Hgb A1C 5.6 10/17/2019 [place] Fany 04/11-instructed on good daily foot care [...] anxiety and depressed mood routine follow up [facility] [place] 08/19/2020 PHQ 9 Scoere 1, admits to [...] feeling light headed Z13.9-V82.9 Encounter for screening, riqzjqqaokd15/6/2020 Maltreatment assessment complete- patient denies any form of abuse or neglect Z68.43-V85.43 Adult BMI 50.0-59.9 kg/sq continues to loose weight trying to avoid soda, drinking sparkling flavor ed pal and occasional [employer] Green Tea and honey Z12.4-V76.2 Encounter for screening for malignant neoplasm of cervix last pap January 2019 new appt for pap in June 2020-[facility] Chief Of Staff Doctor-reports pap negative-records requested Z01.89- V72.85 Encounter for [...] above topics. 08/19/2020Appointment: Anna Culver WPtel: [address] [place] [address] [place], [place] [address] USETV110/19/2019Patient Education: Patient Medication RuiagirCbdbumnci60/17/2020 Patient Education: ImawshejilltPnrmlbdaa93/17/2020Patient Education: Diabetes Gzynhxjjz29/17/2020Visit Plan:M25.531-719.43 Right wrist pain routine follow up [...] remain elevated received new monitor [employer] through [employer]-participant of [employer] demand -will send all diabetic supplies to patient 04/14/2020 hemoglobin 5.6 10/17/2019 Hemoglobin A1C 6.0 07/04/2019 Hgb A1C 5.6 10/17/2019 [place] Fany 04/11-instructed on good daily foot care [...] anxiety and depressed mood routine follow up [facility] E03.9-244.9 Hypothyroidism, unspecified cont levothyroxine E78.5-272.4 Hyperlipidemia, [...] appt for pap in June 2020-[facility] Chief Of Staff Doctor-reports pap negative-records requested Z01.89-V72.85 Encounter for screening [...] above topics. 07/22/2020Appointment: Anna Culver WPtel: [address] [place], [place] [id number] USETV1Patient Education: Patient Medication RglwrorGcrvlicbb00/20/2020 Visit Plan:M25.531-719.43 Right wrist pain routine follow [...] 500mg BID received new monitor [employer] through [employer]-participant of [employer] -will send all diabetic supplies to patient 04/14/2020 hemoglobin 5.6 10/17/2019 Hemoglobin A1C 6.0 07/04/2019 Hgb A1C 5.6 10/17/2019 [place] Fany 04/11-instructed on good daily foot care [...] anxiety and depressed mood routine follow up [facility] [place] E03.9-244.9 Hypothyroidism, unspecified cont levothyroxine E78.5-272.4 Hyperlipidemia, [...] appt for pap in June 2020-[facility] Chief Of Staff Doctor-reports pap negative-records requested Z01.89-V72.85 Encounter for screening [...] above topics. 07/08/2020Appointment: Anna Culver WPtel: [address] [facility] [address] [facility] USETV1Patient Education: Patient Medication VserurnRhallnyof86/06/2020 Patient Education: ZhbemmrnZaypumuqu19/06/2020Patient Education: Hypertension Wzxwbxdqr32/06/2020Appointment: Gianna Birmingham MCtel: [address] [facility] [address] PszrlemDJ[address] RPDJIE6307/02/2020Visit Plan:M25.531-719.43 Right wrist pain patient complaining of [...] A1C 6.0 07/04/2019 Hgb A1C 5.6 10/17/2019 [place] Fany 04/11-instructed on good daily foot care [...] anxiety and depressed mood routine follow up [facility] [place] labs orderedresults pending E03.9-244.9 Hypothyroidism, unspecified cont [...] appt for pap in June 2020-[facility] Chief Of Staff Doctor-reports pap negative-records requested Z01.89-V72.85 Encounter for screening [...] above topics. 06/11/2020Appointment: Anna Culver WPtel: [address] [place], [place] [id number] Education: Patient Medication DftxrfaJmjhitmed65/09/2020 Patient Education: NufliobqqxazGmdzdabnd64/09/2020Patient Education: Diabetes Riebkqmty46/09/2020Patient Education: IpgirrmZoximkhog70/09/2020Visit Plan: M25.531-719.43 Right wrist pain patient complaining of chronic pain to right wrist, denies known injury-routine follow up with Dr Watson-orthopedics quit outpatient PT as didn't feel it was helpful E11.42-250.60 Type 2 diabetes mellitus with peripheral neuropathy testing daily, at varied times -527, patient reports feeling symptomatic for BS <100, will add second testing PRN for symptoms 04/14/2020 hemoglobin 5.6 10/17/2019 Hemoglobin A1C 6.0 07/04/2019 Hgb A1C 5.6 10/17/2019 [place] Fany 04/11-instructed on good daily foot care [...] anxiety and depressed mood routine follow up [facility] [place] E03.9-244.9 Hypothyroidism, unspecified cont levothyroxine N39.46-788.33 Mixed [...] above topics. 05/14/2020Appointment: Anna Culver WPtel: [address] [place], [place] [id number] Education: Patient Medication VwiashoFocefuwqf27/12/2020 Patient Education: BhpqwoidSletwzkid92/12/2020Patient Education: Hypertension Tjbfypqix02/12/2020Care Plan: Overnight Pulse yrQgdbrni17/12/2020Visit Plan: E11.42-250.60 Type 2 diabetes mellitus with [...] appointment 06/2020 G47.33-327.23Obstructive sleep apnea (adult) (pediatric) J45.218-493.90 Asthma continue inhalers and nebulizer wears cpap every night, believes that is helpful Dr. Garcia, pulmonology for chronic sleep apnea and asthma-audio visit last week Cpap pressuresetting increased to 12-request records F43.23-309.28 Adjustment disorder with mixed anxiety and depressed mood routine follow up [facility] [place] E03.9-244.9 Hypothyroidism, unspecified cont levothyroxine N39.46-788.33 Mixed [...] above topics. 04/17/2020Appointment: Anna Culver WPtel: [address] [id number] Education: Patient Medication KmsybynHsiqrkhpq45/16/2020 Patient Education: PphfcjuqcgsaLgtloehhi24/16/2020Patient Education: Diabetes Jctlyoknc94/16/2020Patient Education: Patient Medication SummaryCompleted 04/13/2020Visit Plan:E11.42-250.60 Type 2 diabetes mellitus with peripheral neuropathy testing daily, at varied times range 76-153, elevated BS was in the evening, isolated incident usually stays under 134 patient reports need to send BS results to [place] for review 10/17/2019 Hemoglobin A1C 6.0 07/04/2019 [...] anxiety and depressed mood routine follow up [facility] E03.9-244.9 Hypothyroidism, unspecified cont levothyroxine N39.46-788.33 Mixed [...] all above topics. 03/21/2020Appointment: Anna Culver WPtel: [address] [place], [place] [id number] Education: Patient Medication KucxjqqHjhtvexvk27/19/2020 Patient Education: AkobeyzlbwwfIkpykufon61/19/2020Patient Education: Diabetes Twvokdeak93/19/2020Patient Education: OcllaakTfysnlmwd66/19/2020Visit Plan: patient with I phone able to participate in visual and audio telehealth visit S90.758A-917.0 Abrasion of toe caused by toe rubbing [...] A1C 6.0 07/04/2019 Hgb A1C 5.6 10/17/2019 [place] Fany 7/10-instructed on good daily foot care [...] anxiety and depressed mood routine follow up [facility] [place] E03.9-244.9 Hypothyroidism, unspecified cont levothyroxine N39.46-788.33 Mixed incontinence use of incontinence supplies Z68.43-V85.43 Adult BMI 50.0-59.9 kg/sq m [employer] Technician to visit to discuss portion control trying to avoid soda, drinking sparkling flavored pal and occasional [employer] Green Tea and honey Z12.4-V76.2 Encounter for screening for malignant neoplasm of cervix last [id number] will request records Z01.89-V72.85 Encounter for screening [...] above topics. 02/14/2020Appointment: Anna Culver WPtel: [address] [place] [address] [place], [place] [id number] Education: Patient Medication ExfdthcDymplnmfs75/14/2020 Patient Education: NcrewtyphdxzEzkfjiixa83/14/2020Patient Education: Diabetes Rpkodkgmh18/14/2020Visit Plan:patient with I phone able to participate in visual and audio telehealth visit U02-090.2 Syncope andcollapse denies any recent episodes advise [...] mixed anxiety and depressedmood routine follow up [facility] [place] E03.9-244.9 Hypothyroidism, unspecified cont levothyroxi ne N39.46-788.33 Mixed incontinence use of incontinence supplies Z68.43-V85.43 Adult BMI 50.0-59.9 kg/sq m [employer] Technician to visit to discuss portion control trying to avoid soda, drinking sparkling flavored pal and occasional [employer] Green Tea and honey H10.029-372.03 [facility]-resolved ophthalmicointment received today advised to avoid touches her face or eyes and need to wash hands qeuckvprmwM44.89-V72.85 Encounter for screening for tobacco use Tobacco [...] above topics. 01/24/2020Appointment: Anna Culver WPtel: [address] [place], [place] [phone] [id number] Education: YrghykaalhsvUldmccfur14/23/2020Patient Education: AatmdzwjLnnjnfbom47/23/2020Patient Education: Patient Medication EcizgatZxdyeqaht95/23/2020Visit Plan:patient with I phone able to participate in visual and audio telehealth visit H10.029-372.03 [facility] ophthalmic ointment received today advised to [...] BS 171 ate about an hour ago ycrwm970-770 tests one time a day-advised to test at varied times throughout the day-BS log left with patient 10/17/2019 Hemoglobin A1C 6.0 07/04/2019 Hgb A1C 5.6 10/17/2019 [place] Fany 7/10-instructed on good daily foot care [...] mixed anxiety and depressedmood routine follow up [facility] [place] Z68.43-V85.43 Adult BMI 50.0-59.9 kg/sq m [employer] Technician t o visit to discuss portion control Advised to avoid soda and sweet tea-discuss Ice, carbonated drink as a substitute 01/01/2020Appointment: Anna Culver WPtel: [address] [id number] Education: Patient Medication AtmocuyOfvdsbrnc86/31/2020 Patient Education: AhrimqfeVavkyzpav38/31/2020Patient Education: Hypertension Ufagfthix68/31/2020Patient Education: Patient Medication SummaryCompleted 12/29/2019Patient Education: Patient Medication DgisiszPltetmsus68/14/2020Care Plan: Incontinence VlxrdrwkNaalgrl22/14/2020Patient Education: Patient Medication SrspiinVlugplszn39/10/2020Visit Plan:t N18.9-585.9 Chronic kidney disease, unspecified avoid [...] A1C 6.0 07/04/2019 Hgb A1C 5.6 10/17/2019 [place] Fany 7/10-instructed on good daily foot care [...] Adjustment disorder with mixed anxiety and depressedmood [facility] Z68.43-V85.43 Adult BMI 50.0-59.9 kg/sq m [employer] Technician to visit to discuss portion control Advised to avoid soda and sweet tea-discuss Ice, carbonated drink as a substitute Discuss healthy carbs 11/28/2019Appointment: Anna Culver WPtel: [address] [place], [place] [phone] [id number] Education: Patient Medication AljsqwrSnowlujsi37/26/2020 Patient Education: BwrwfsfuRebppmlzo29/26/2020Patient Education: Hypertension Honiczour25/26/2020Patient Education: Patient Medication SummaryCompleted 11/07/2019Patient Education: Patient Medication ZkohycqOkzilubwu39/27/2020Visit Plan:t N18.9-585.9 Chronic kidney disease, unspecified avoid [...] leftwith patient 07/04/2019 Hgb A1C 5.6 10/17/2019 Ocoeecyril Soares 7/10-instructed on good daily foot care routine follow up with Dr. Gonzales, podiatry-wanting diabetic shoes-advised to have shader and toner send something to office for signature-pt to have shader and toner call office for instruction to send paperwork ophthalmology referral initiated labs drawn, results pending G47.33-327.23 Obstructive sleep apnea (adult) (pediatric) J45.909-493.90 Asthma Recent ED visit for difficulty breathing-records requested continue inhalers and nebulizer wears cpap every night, believes that is helpful 10/22/2019 Dr. Garcia, pulmonology for chronic sleep apnea and asthma F43.23- 309.28 Adjustment disorder with mixed anxiety and depresseddeod [facility] has first appt today 10/17/2019Appointment: Anna Culver WPtel: [address] [place] [address] [id number] Education: Patient Medication KgozqrqSjoaylfyn20/15/2020 Patient Education: WnqyqcrNwmwynijr47/15/2020Patient Education: Patient Medication CwlmkehKfuwhzxjz04/28/2019Appointment: Anna Culver WPtel: [address] [address] [id number]/20/2018Patient Education: Patient Medication JwfhinyMpariuzwd10/18/2019 Patient Education: OzcelqsaxplqVynqfzuvn64/18/2019Patient Education: Diabetes Ivlgkcpca50/18/2019Patient Education: Patient Medication SummaryCompleted 09/07/2019Patient Education: Patient Medication YnfggplSuglzmjid89/03/2019Care Plan: RENAL FUNCTION PANELLOINC : 14041-9 Zhzetcw1307/05/2019Care Plan: QAKWqymurw52/03/2019Visit Plan:States having more bruising does not remembering injuring self, send for labs for cbc and chem 14 pt states allergic to bananas states makes her nausea, pt to avoid bananas Can not use windex, breaking out from cleaning supplies, hives have resolved Kidney ultra sound negative results reviewed withpt Saw eye Dr Hawkins in [facility] , looking for a dentist N18.9-585.9 [...] a1c sent 07/04/2019Appointment: Sudha Hernadez WPtel: [address] [facility] b [id number] Education: Patient Medication ArtzsmsEolaownga79/02/2019 Appointment: Sudha Hernadez WPtel: [address] [facility] b [id number] Education: Patient Medication YehewqaWfnomkxrl30/19/2019 Care Plan: URINALYSIS AUTO W/SCOPELOINC : 45078-1 Twvqpeq8406/21/2019Appointment: Charlene Oropeza WPtel: [address] [facility] b [id number] Education: Patient Medication KhtoqaiBnhruxncv84/22/2019 Patient Education: VvpldnhTglyiphri99/22/2019Patient Education: Diabetes Taaalfndr28/22/2019Care Plan: Incontinence YcuipynzAjiweql45/22/2019Care Plan: External Outpatient Sleep NezjqMkyxdeb74/22/2019Patient Education: Patient Medication CicvxbfCwbeioddw28/20/2019Care Plan: Oxygen CcnhpeNcdnywd62/20/2019 Patient Education: Patient Medication MbryaoeFzqdizufb20/01/2019Patient Education: Patient Medication AdxagomEtmtykrwv83/01/2019Appointment: Office, MqydaqO97013/26/2019Patient Education: Patient Medication SummaryCompleted 04/27/2019Visit Plan:I11.0-402.91 Hypertensive [...] controlled, but will let thisgo for today J45.671- 850.93 Unspecified asthma, uncomplicated CXR, Ventolin rescue inhaler, Yon Has a manager general that she is seeing tomorrow Using rescue [...] problem but needs a new one in [place], have asked for that referral, too. Z23-V03.9 Encounter for immunization PPSV23 and Td offered today, says she [id number] already, chart updated Td given today Z12.4-V76.2 Encounter for screening for malignant neoplasm of cervix Offered [facility] referral for cervical CA screening - and referred today Z79.899-V58.69 Other prison (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 PDMP reviewed last fill on 03/01/19 gabapentin 300 mg #90 Okay for refill today 04/25/2019Appointment: Charlene Oropeza WPtel: [address] [facility] [address] [id number] Education: Patient Medication CoupvimEqvnekigk56/24/2019 Patient Education: PwrocuJwpibeupk62/24/2019Patient Education: Hypertension Oiywxlogj89/24/2019Patient Education: JsxglpwEnuplgosk99/24/2019Patient Education: WspoxpnfMozxugzqq50/24/2019Patient Education: Patient Medication RcahmvwJeutfxnqb39/24/2019Care Plan: Overnight Pulse vjBnxfsqa11/24/2019Visit Plan:J45.909-937.09 Unspecified asthma, uncomplicated Diagnosed at [facility] on 03/21/19. No medications Rx'd. [...] to [facility] at [address] [place] [address], p [phone], Z68.43-V85.43 Body mass index (BMI) 50-59.9 , [...] for LTL. 03/28/2019Appointment: Rasta Palafox WPtel: [address] [facility] [address] [id number] Education: Patient Medication MotpsavYykqzmwgc90/26/2019 Patient Education: SwaczqQmlclrrto81/26/2019Care Plan: Cardiology Referral SNOMED-CT : [id number] Ktujplp4103/28/2019Visit Plan:R06.81-786.03 Apnea, not elsewhere classified Increase in awake apnea. Discussed could also have a neurological &/or psychiatric etiology, but will start with Pulmonology POC: 02/08/19- referred to [facility] at [place] [address] [place] [address], p [phone], Z68.43-V85.43 Body mass index (BMI) 50-59.9 , adult 18 lb weight gain since November. Discussed could be contributing to, but is not causing awake apnea events. 02/14/2019Appointment: Rasta Palafox WPtel: [address] [facility] [address] [id number] Education: Patient Medication EhoqjfeNinfabube87/15/2019 Patient Education: Patient Medication CwwmlpwBdmkztuct80/09/2019Visit Plan: R06.81-786.03 Apnea, not elsewhere classified Pt [...] probably get sentenced to 6-8 yrs in detention. I'm going to stand right beside him [...] [06/14/2018 - 08/12/2018] [facility]: [facility] BAUDILIO Dowling Seeing counselor at [facility] also R51-784.0 Headache 09/21/18: ambulance admission to [place] [facility]. pt stated she had been out [...] Whe ezing 01/31/2019Appointment: DaltonRasta elias WPtel: [address] [facility] [address] [id number] Education: Patient Medication AdnzonhGiapfspgd68/01/2019 Patient Education: DfjlkbvqVpuqlycum06/01/2019Patient Education: Hypertension Oemqqjnxb91/01/2019Visit Plan:I10-401.9 Essential (primary) hypertension Chronic stable, controlled [...] of the current POC Labs drawn per [facility] Protocol to assess current status & the [...] 05/2918: TSH- 2.190 POC: FT4 drawn per [facility] Protocol R94.31-794.31 Abnormal electrocardiogram[ECG] [EKG] 05/11/18: Sinus [...] probably get sentenced to 6-8 yrs in detention. I'm going to stand right beside him [...] managed by [facility] BAUDILIO Dowling [facility] [...] Dx to resolved 12/27/2018Appointment: Rasta Palafox WPtel: [address] [facility] [address] [id number] Education: DtvojeqqgNgnwhavzx07/27/2019Patient Education: HwfqzjxjEwanzdoud35/27/2019Patient Education: HypertensionCompleted 12/27/2018Patient Education: Patient Medication OcynlgzQfqyngdyr68/27/2019Visit Plan:E11.9-250.00 Type 2 diabetes mellitus without complications [...] to cardiology when the pt moves into [place] and has transportation F43.23-309.28 Adjustment disorder with [...] probably get sentenced to 6-8 yrs in detention. I'm going to stand right beside him no matter what 11/29/18: just jqtn1rrh from 30+ daiys in alf, released early from a 60 day sentence. buspirone 7.5 mg tablet 1 Tablet(s) PO BID 30 days Refills: 1 Qty: 60 [06/14/2018 - 08/12/2018] : will evaluate for increase at next visit Prozac 10 mg capsule 1 Capsule(s) PO daily 30 days Refills: 1 Qty: 30 [06/14/2018 - 08/12/2018] POC: being managed by [facility] N[facility], BAUDILIO [facility] [...] Dx to resolved 11/29/2018Patient Education: Patient Medication ZihwtbmRzukmjwjx86/27/2019 Patient Education: BcbxiizfstlcUvuonzlja78/27/2019Patient Education: Headaches Nrhexajvo01/27/2019Patient Education: BakjhcrwKyqarfxqg76/27/2019Patient Education: Patient Medication LgqqytuCqiguqtmr09/19/2019Visit Plan:E11.9-250.00 Type 2 diabetes mellitus without complications [...] [facility]. pt stated she hadbeen out [...] probably get sentenced to 6-8 yrs in detention. I'm going to stand right beside him no matter what buspirone 7.5 mg tablet 1 Tablet(s) PO BID 30 days Refills: 1 Qty: 60 [06/14/2018 - 08/12/2018] : will evaluate for increase at next visit Prozac 10 mg capsule 1 Capsule(s) PO daily 30 days Refills: 1 Qty: 30 [06/14/2018 - 08/12/2018] POC: being managed by [facility] BAUDILIO Dowling [facility] [...] ischemia pattern. ABNORMAL 10/04/2018Patient Education: Patient Medication RmxazbeSyqmnxump07/02/2019 Patient Education: ZkimkhufrJnxfhzzdo27/02/2019Patient Education: Hypertension Jiuzwgbwk93/02/2019Patient Education: TkzmdlyuKhhgfmumq95/02/2019Patient Education: Patient Medication VwojbwiAkwfaxtfg46/27/2018Patient Education: Patient Medication DvajymxQjkqpgcch26/23/2018Visit Plan:E11.9-250.00 Type 2 diabetes mellitus without complications Chronic, stable, diet controlled (no med ications), RBS 106, denies hypoglycemia. 05/31/19: A1c- 6.0 POC: no change to POC needed. Will continue to monitor & assess the effectiveness of the current POC Labs drawn per [facility] Protocol assess current status & the effectiveness [...] probably get sentenced to 6-8 yrs in detention. I'm going to stand right beside him [...] when sitting, avoid high salt foods. 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
[2025-07-29 15:54] VITALS: BP 121/79; PULSE 90; O2SAT 96
== END 2025-07-29 15:56 | disposition home or self-care (01) ==
PROVIDERS: Emergency Provider Emergency Medicine; PCP Nurse Practitioner Family
DX: J40 Bronchitis, not specified as acute or chronic (principal)
CPT/HCPCS: 36415; 80053; 85025; 94640; 99284